=== PATIENT | female | born 1955 | race Caucasian/White ===

== ENCOUNTER 2024-01-05 09:33 | Outpatient (REF) | payer MEDICARE, MEDICAID, SELFPAY ==
[2024-01-05 11:34] LABS: Influenza Virus A Antigen Negative; Influenza Virus B Antigen Negative; Internal Control Within Normal Limits; Respiratory Syncytial Virus Not Detected (NOT DETECTE); SARS-CoV-2 Ag NEGATIVE (NEGATIVE)
== END 2024-01-05 09:34 | disposition home or self-care (01) ==
LOC: LAB 09:33
DX: J06.9 Acute upper respiratory infection, unspecified (principal); R05.3 Chronic cough; R06.02 Shortness of breath
CPT/HCPCS: 87420; 87804; 87811

== ENCOUNTER 2024-04-21 12:54 | Outpatient (REF) | payer MEDICARE, MEDICAID, SELFPAY ==
[2024-04-21 13:46] LABS: Basophils Percent Auto 0.4 % (0.2-2.0); Eosinophils Absolute Auto 0.1 10^3/uL (0.0-0.7); Eosinophils Percent Auto 2.2 % (0.9-7.0); Hematocrit 26.8 % (36.0-48.0); Hemoglobin 8.1 g/dL (12.0-16.0); Immature Granulocytes Abs Auto 0.07 10^3/uL (0.00-0.03); Immature Granulocytes Pct Auto 1.3 % (0.0-0.5); Lymphocytes Percent Auto 18.7 % (20.5-60.0); Mean Corpuscular HGB Conc 30.2 g/dL (29.9-35.2); Mean Corpuscular Hemoglobin 25.8 pg (26.7-34.0); Mean Corpuscular Volume 85.4 fL (81.0-99.0); Monocytes Percent Auto 18.7 % (1.7-12.0); Neutrophils Absolute Auto 3.2 10^3/uL (1.4-6.5); Neutrophils Percent Auto 58.7 % (43.0-75.0); Platelet Count 56 10^3/uL (150-450); Red Blood Count 3.14 10^6/uL (4.20-5.40); White Blood Count 5.4 10^3/uL (4.0-11.0)
[2024-04-21 14:08] LABS: Anion Gap 11.8; BUN Creatinine Ratio 27.8; Calcium 8.4 mg/dL (8.5-10.1); Carbon Dioxide 28.4 mmol/L (21.0-32.0); Chloride 103 mmol/L (98-107); Estimated GFR (African America >60 (>=60); Estimated GFR (Non-African Ame >60 (>=60); Glucose 94 mg/dL (74-106); Potassium 4.2 mmol/L (3.5-5.1); Sodium 139 mmol/L (136-145)
[2024-04-21 14:20] LABS: Red Cell Distribution Width 22.5 % (11.0-15.0)
== END 2024-04-21 12:55 | disposition home or self-care (01) ==
LOC: LAB 12:54
PROVIDERS: Visit Provider Family Medicine
DX: K65.2 Spontaneous bacterial peritonitis (principal)
CPT/HCPCS: 36415; 80048; 85025

== ENCOUNTER 2024-04-25 13:09 | Outpatient (REF) | payer MEDICARE, MEDICAID, SELFPAY ==
[2024-04-25 13:57] LABS: Basophils Percent Auto 0.7 % (0.2-2.0); Eosinophils Absolute Auto 0.2 10^3/uL (0.0-0.7); Eosinophils Percent Auto 3.6 % (0.9-7.0); Immature Granulocytes Abs Auto 0.03 10^3/uL (0.00-0.03); Immature Granulocytes Pct Auto 0.7 % (0.0-0.5); Lymphocytes Absolute Auto 1.2 10^3/uL (1.2-3.8); Lymphocytes Percent Auto 28.1 % (20.5-60.0); Mean Corpuscular HGB Conc 30.8 g/dL (29.9-35.2); Mean Corpuscular Hemoglobin 26.4 pg (26.7-34.0); Mean Corpuscular Volume 85.8 fL (81.0-99.0); Monocytes Percent Auto 22.8 % (1.7-12.0); Neutrophils Absolute Auto 1.8 10^3/uL (1.4-6.5); Neutrophils Percent Auto 44.1 % (43.0-75.0); Platelet Count 60 10^3/uL (150-450); Red Blood Count 3.03 10^6/uL (4.20-5.40); Red Cell Distribution Width 23.5 % (11.0-15.0); White Blood Count 4.2 10^3/uL (4.0-11.0)
[2024-04-25 14:44] LABS: Anion Gap 12.5; BUN Creatinine Ratio 27.9; Calcium 8.9 mg/dL (8.5-10.1); Carbon Dioxide 26.5 mmol/L (21.0-32.0); Chloride 102 mmol/L (98-107); Estimated GFR (African America >60 (>=60); Estimated GFR (Non-African Ame >60 (>=60); Glucose 87 mg/dL (74-106); Sodium 137 mmol/L (136-145)
== END 2024-04-25 13:10 | disposition home or self-care (01) ==
LOC: LAB 13:09
PROVIDERS: Visit Provider Family Medicine
DX: K65.2 Spontaneous bacterial peritonitis (principal)
CPT/HCPCS: 36415; 80048; 85025

== ENCOUNTER 2024-04-29 10:39 | Outpatient (REF) | payer MEDICARE, MEDICAID, SELFPAY ==
[2024-04-29 11:05] LABS: Hematocrit 24.4 % (36.0-48.0); Hemoglobin 7.6 g/dL (12.0-16.0); Mean Corpuscular HGB Conc 31.1 g/dL (29.9-35.2); Mean Corpuscular Hemoglobin 27.1 pg (26.7-34.0); Mean Corpuscular Volume 87.1 fL (81.0-99.0); Mean Platelet Volume 10.7 fL (9.5-13.5); Platelet Count 47 10^3/uL (150-450); Red Cell Distribution Width 24.5 % (11.0-15.0); White Blood Count 1.9 10^3/uL (4.0-11.0)
[2024-04-29 11:51] LABS: Anisocytosis 2+; Basophils Abs Manual 0.01 10^3/uL (0.00-0.10); Eosinophils Absolute Manual 0.13 10^3/uL (0.00-0.70); Lymphocytes Absolute Manual 0.57 10^3/uL (1.20-3.80); Monocytes Absolute Manual 0.28 10^3/uL (0.30-0.80); Segmented Neut Absolute Manual 0.87 10^3/uL (1.4-6.5)
[2024-04-29 12:08] LABS: Anion Gap 12.6; BUN Creatinine Ratio 26.2; Calcium 8.7 mg/dL (8.5-10.1); Carbon Dioxide 24.5 mmol/L (21.0-32.0); Chloride 107 mmol/L (98-107); Estimated GFR (African America >60 (>=60); Estimated GFR (Non-African Ame >60 (>=60); Glucose 185 mg/dL (74-106); Potassium 4.1 mmol/L (3.5-5.1); Sodium 140 mmol/L (136-145)
== END 2024-04-29 10:40 | disposition home or self-care (01) ==
LOC: LAB 10:39
PROVIDERS: Visit Provider Family Medicine
DX: K65.9 Peritonitis, unspecified (principal)
CPT/HCPCS: 36415; 80048; 85007; 85027

== ENCOUNTER 2024-05-02 12:13 | Outpatient (OUT) | payer MEDICARE, MEDICAID, SELFPAY ==
[2024-05-02 13:44] LABS: Basophils Percent Auto 0.4 % (0.2-2.0); Eosinophils Absolute Auto 0.1 10^3/uL (0.0-0.7); Eosinophils Percent Auto 4.4 % (0.9-7.0); Hematocrit 26.6 % (36.0-48.0); Hemoglobin 8.1 g/dL (12.0-16.0); Immature Granulocytes Abs Auto 0.02 10^3/uL (0.00-0.03); Immature Granulocytes Pct Auto 0.9 % (0.0-0.5); Lymphocytes Absolute Auto 0.7 10^3/uL (1.2-3.8); Lymphocytes Percent Auto 32.6 % (20.5-60.0); Mean Corpuscular HGB Conc 30.5 g/dL (29.9-35.2); Mean Corpuscular Hemoglobin 26.8 pg (26.7-34.0); Mean Corpuscular Volume 88.1 fL (81.0-99.0); Mean Platelet Volume 11.9 fL (9.5-13.5); Monocytes Absolute Auto 0.6 10^3/uL (0.3-0.8); Monocytes Percent Auto 24.7 % (1.7-12.0); Neutrophils Absolute Auto 0.8 10^3/uL (1.4-6.5); Platelet Count 56 10^3/uL (150-450); Red Blood Count 3.02 10^6/uL (4.20-5.40); Red Cell Distribution Width 24.3 % (11.0-15.0); White Blood Count 2.3 10^3/uL (4.0-11.0)
[2024-05-02 14:05] LABS: Anion Gap 12.8; BUN Creatinine Ratio 26.8; Calcium 8.8 mg/dL (8.5-10.1); Carbon Dioxide 26.5 mmol/L (21.0-32.0); Chloride 103 mmol/L (98-107); Estimated GFR (African America >60 (>=60); Estimated GFR (Non-African Ame >60 (>=60); Glucose 92 mg/dL (74-106); Potassium 4.3 mmol/L (3.5-5.1); Sodium 138 mmol/L (136-145)
== END 2024-05-02 12:14 | disposition home or self-care (01) ==
LOC: LAB 12:15
PROVIDERS: Visit Provider Family Medicine
DX: K65.9 Peritonitis, unspecified (principal)
CPT/HCPCS: 36415; 80048; 85025

== ENCOUNTER 2024-08-18 13:33 | Outpatient (OUT) | payer MEDICARE, MEDICAID, SELFPAY ==
--- NOTE | 2024-08-18 14:05 | MM_ITS ---
Patient Name: NANNETTE PÉREZ MR#: [id number] : 1955 Exam Date: 08/18/2024 Ordering Doctor: DR YINKA LOPEZ M.D. RADIOLOGY REPORT PROCEDURE: MM TOMOSYNTHESIS SCREENING BI COMPARISON: MG MAMM SCREEN BRENDA W CAD, 03/23/2019. MG MAMM SCREEN 3D BRENDA CAD, 10/16/2022. INDICATIONS: Screening Calculator Name NCI Breast Cancer Risk Assessment Tool 5 Year Breast Cancer Risk 5.10% Lifetime Breast Cancer Risk 17.40% Personal Breast Cancer No Personal Ovarian Cancer No Treatments None Family Cancers Sister with breast cancer at age 52; Mother with colon cancer at age 78; Father with prostate cancer at age 76; Brother with lung cancer at age 64. LOCATION: [facility] BREAST COMPOSITION: There are scattered areas of fibroglandular density. FINDINGS: DIAGNOSTIC CATEGORY 2--BENIGN FINDING. NO CHANGE FROM COMPARISON. Scattered benign-appearing calcifications are present. RIGHT BREAST: No significant suspicious finding. LEFT BREAST: No significant suspicious finding. RECOMMENDATIONS: ROUTINE MAMMOGRAM AND CLINICAL EVALUATION IN 12 MONTHS. PLEASE NOTE: A NORMAL MAMMOGRAM DOES NOT EXCLUDE THE POSSIBILITY OF BREAST CANCER. A CLINICALLY SUSPICIOUS PALPABLE LUMP SHOULD BE BIOPSIED. Dictated by: Douglas Lozano MD on 08/18/2024 at 15:11 Approved by: Douglas Lozano MD on 08/18/2024 at 15:19
== END 2024-08-18 13:34 | disposition home or self-care (01) ==
LOC: MAMMO 13:35
PROVIDERS: PCP Family Medicine; Visit Provider Family Medicine
DX: Z12.31 Encounter for screening mammogram for malignant neoplasm of breast (principal); Z80.3 Family history of malignant neoplasm of breast; Z80.0 Family history of malignant neoplasm of digestive organs; Z80.42 Family history of malignant neoplasm of prostate; Z80.1 Family history of malignant neoplasm of trachea, bronchus and lung
CPT/HCPCS: 77063; 77067

== ENCOUNTER 2024-08-29 19:40 | Outpatient (OUT) | payer MEDICARE, MEDICAID, SELFPAY | END 2024-08-29 19:41 | disposition home or self-care (01) | LOC: SLEEP 19:40 | PROVIDERS: PCP Family Medicine | DX: J44.9 Chronic obstructive pulmonary disease, unspecified (principal); I10 Essential (primary) hypertension; G47.10 Hypersomnia, unspecified | CPT/HCPCS: 95810 ==

== ENCOUNTER 2025-04-02 13:16 | Emergency (ER) | payer MEDICARE, MEDICAID, SELFPAY ==
--- OUTSIDE RECORDS SUMMARY | 2025-03-29 15:20 | XMS_ITS | Encounter Summary ---
Author Organization [facility] Address [address] [facility] [place] [address] Care Team Providers Care Forging Press Setter Up Name Role Phone Vitaliy Thomson MD Unavailable [phone] Vitaliy Thomson MD Primary Care Provider [phone] Letty Newsome EXECUTIVE SECRETARY [employer] Unavailable [phone] Sima Paul RN Unavailable [phone] Reason for Visit * Reason Comments UTI Encounter Details Date Type Department Care Team (Late st Contact Info) Description 03/29/2025 3:20 PM EDT Office Visit [facility] [address] [place] [id number] Power Swain DO [address] [place] [address] Acute cystitis without hematuria (Primary Dx); Gastroesophageal reflux disease without esophagitis; Recurrent candidiasis of vagina Social History Tobacco Use Types Packs/Day Years Used Date Smoking Tobacco: Former Cigarettes Smokeless Tobacco: Former Alcohol Use Standard Drinks/Week Comments Never 0 (1 standard drink = 0.6 oz pure alcohol) cafffeine intake: 1-2 cups per day AUDIT-C Answer Date Recorded Q1: How often do you have a drink containing alcohol? Never 03/01/2025 Q2: How many drinks containi ng alcohol do you have on a typical day when you are drinking? Patient does not drink Q3: How often do you have si x or more drinks on one occasion? Never 03/01/2025 PHQ-2 Answer Date Recorded Patient Health Questionnaire-2 Score 0 03/01/2025 Comments No Sex and Gender Information Value Date Recorded Sex Assigned at Not on file Legal Sex Female 6:38 PM EDT Gender Identity Not on file Sexual Orientation Not on file Occupation Industry Job Start Date Job End Date Retired Not on file Not on file Not on file documented as of this encounter Last Filed Vital Signs Vital Sign Reading Time Taken Comments Blood Pressure 128/72 03/29/2025 3:40 PM EDT Pulse 89 03/29/2025 3:40 PM EDT Temperature 36.7 C (98.1 F) 03/29/2025 3:40 PM EDT Respiratory Rate 20 03/29/2025 3:40 PM EDT Oxygen Saturation 94% 03/29/2025 3:40 PM EDT Inhaled Oxygen Concentration - - Weight 85.3 kg (188 lb) 03/29/2025 3:40 PM EDT Height 160 cm (5' 3 ) 03/29/2025 3:40 PM EDT Body Mass Index 33.3 03/29/2025 3:40 PM EDT documented in this encounter Progress Notes * Power Swain DO - 03/29/2025 3:20 PM EDTAssociated Problem(s): GERD (gastroesophageal reflux disease) - Heartburn not well controlled with current medication (Protonix). - Prescribe lansoprazole 30 mg once daily since it worked better for her in the past, starting the day after the last dose of pantoprazole. Orders: lansoprazole (Prevacid) [address] capsule; Take 1 capsule (30 mg) by mouth Daily Do not crush or chew. * Power Swain DO - 03/29/2025 3:20 PM EDT Images from the original note were not included. FAMILY MEDICINE NOTE Chief Complaint: UTI HPI: UTI: Patient with the following complaints and denials which have been present for unsure the amount of time. Would like to discuss protonix as well, it is not helping her GERD. C/O Denies Symptom Comments [x] [] Dysuria [] [x] hematuria [x] [] Urinary frequency [x] [] Urinary incontinence [x] [] Urinary urgency [x] [] Genital itching [] [x] Genital discharge [] [x] Back pain [] [x] Abd pain Additional Comments: pt has not taken any OTC medications Hemorrhoids Has multiple hemorrhoids reportedly and uses hydrocortisone and anusol rectal cream with 5% lidocaine for relief. Wears pads to prevent medication from staining clothes and furniture. Low platelet count and white blood cell count due to cancer, which has limited treatment options for hemorrhoids inregards to surgery per pt report. Heartburn Experiences significant heartburn and has been taking Protonix since last April. Previously on Prevacid, which was effective, but was switched to Protonix during a hospital stay. Uses chewables and Tums for additional relief. SUBJECTIVE: PROBLEM LIST SURGICAL/SOCIAL ALLERGIES: Patient Active Problem List Diagnosis Chronic obstructive pulmonary disease (CMS/HCC) Depression (CMS/HCC) DM2 (diabetes mellitus, type 2) (CMS/HCC) Essential hypertension (CMS/HCC) Fibromyalgia Hyperlipidemia, group D (CMS/HCC) Hypogammaglobulinemia (CMS/HCC) Vitamin D deficiency Thoracic aortic aneurysm without rupture (CMS/HCC) Primary localized osteoarthrosis of ankle and foot Multiple myeloma not having achieved remission (CMS/HCC) Morbid obesity (CMS/HCC) Hemorrhoids, complicated Familial hyperchylomicronemia (CMS/HCC) GERD (gastroesophageal reflux disease) Immunodeficiency disorder (CMS/HCC) Constipation 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) (CMS/HCC) BMI 30.0-30.9,adult Acute alteration in mental status History of COVID-19 History of tobacco abuse Maxillary sinusitis, chronic Acute metabolic encephalopathy Bacteremia Paroxysmal atrial fibrillation (CMS/HCC) Rhinovirus infection Septic shock (CMS/HCC) Abnormal CXR (chest x-ray) Spontaneous bacterial peritonitis (HCC) (CMS/HCC) Bleeding hemorrhoids Lymphopenia Thrombocytopenia (CMS/HCC) Abnormal liver ultrasound Claustrophobia (CMS/HCC) Hepatocellular carcinoma (CMS/HCC) Liver lesion Past Surgical History: Procedure Laterality Date APPENDECTOMY BONE MARROW BIOPSY several CARPAL TUNNEL RELEASE CHOLECYSTECTOMY COLONOSCOPY 05/01/2015, completed by Dr. Cody 09/15/2018 CT GUIDED RF ABLATION LIVER 01/05/2025 CT GUIDED RF ABLATION LIVER 01/05/2025 ELBOW SURGERY HERNIA REPAIR HYSTERECTOMY KNEE SURGERY Bilateral knee arthroscopy TENDON REPAIR US GUIDED RF ABLATION LIVER 01/05/2025 US GUIDED RF ABLATION LIVER 01/05/2025 WRIST SURGERY Social History Tobacco Use Smoking status: Former Types: Cigarettes Smokeless tobacco: Former Substance Use Topics Alcohol use: Never Comment: cafffeine intake: 1-2 cups per day Drug use: Never Allergies Allergen Reactions Latex Unknown, Hives and Rash Tetracycline Unknown, Hives and Rash Antazoline Itching Other Reaction(s): Unknown Diclofenac Unknown and Hives Diclofenac Sodium Hives Doxycycline Unknown and Swelling Erythromycin Hives Erythromycin Base Hives Other Dizziness Other Reaction(s): dizziness Quinolones Hives Other Reaction(s): Hives, Unknown Reaction Other Reaction(s): Unknown Reaction Wound Dressing Adhesive Unknown Amoxicillin Swelling and Rash Moxifloxacin Hives, Rash and Unknown OBJECTIVE: 03/29/2025 3:40 PM 03/13/2025 11:57 AM 03/01/2025 1:51 PM Vitals BMI 33.3 kg/m2 32.56 kg/m2 31.89 kg/m2 BSA (m2) 1.95 m2 1.93 m2 1.9 m2 Systolic 128 122 102 Diastolic 72 78 70 Heart Rate 89 83 87 SpO2 94 % 95 % 97 % Temp 98.1 ??F 97.8 ??F 97.7 ??F Resp 20 20 Height (in) 5' 3 5' 3 Weight (lb) 188 183.8 180 Visit Report Report Report Report Physical Exam Constitutional: Appearance: Normal appearance. Cardiovascular: Rate and Rhythm: Normal rate and regular rhythm. Heart sounds: No murmur heard. No friction rub. No gallop. Pulmonary: Breath sounds: Normal breath sounds. No wheezing, rhonchi or rales. Abdominal: General: Abdomen is flat. Bowel sounds are normal. There is no distension. Palpations: Abdomen is soft. There is no mass. Tenderness: There is no abdominal tenderness. There is no right CVA tenderness, left CVA tendernessor guarding. Comments: Negative deirdre's punch bilaterally Musculoskeletal: General: Normal range of motion. Skin: General: Skin is warm. Neurological: General: No focal deficit present. Mental Status: She is alert. Mental status is at baseline. Psychiatric: Mood and Affect: Mood normal. Behavior: Behavior normal. ASSESSMENT AND PLAN: Assessment & Plan Acute cystitis without hematuria - UA showed signs of a potential UTI in office today with trace LE. Possible irritation or allergicreaction from pad material contributing to UTI. - Remove the pad to see if it is causing irritation. Start antibiotics as soon as possible. Send urine for culture to determine the appropriate antibiotic. Call patient with results. Prescribe Diflucan for potential yeast infection. - Risks and side effects: Monitor for red flags such as urinary retention, flank pain, fevers, chills, nausea, or vomiting, and go to the ER if these occur. Orders: POCT urinalysis dipstick manually resulted URINARY TRACT INFECTION (HTRX); Future nitrofurantoin, macrocrystal-monohydrate, (Macrobid) 100 MG capsule; Take 1 capsule (100 mg) by mouth in the morning and 1 capsule (100 mg) before bedtime. Do all this for 5 days. Gastroesophageal reflux disease without esophagitis - Heartburn not well controlled with current medication (Protonix). - Prescribe lansoprazole 30 mg once daily since it worked better for her in the past, starting the day after the last dose of pantoprazole. Orders: lansoprazole (Prevacid) [address] capsule; Take 1 capsule (30 mg) by mouth Daily Do not crush or chew. Recurrent candidiasis of vagina See above Orders: fluconazole (Diflucan) 150 MG tablet; Take 1 tablet (150 mg) by mouth Daily for 3 days Take one tablet then another tablet 72 hours later if symptoms do not resolve Patient's Medications New Prescriptions FLUCONAZOLE (DIFLUCAN) 150 MG TABLET Take 1 tablet (150 mg) by mouth Daily for 3 days Take one tablet then another tablet 72 hours later if symptoms do not resolve LANSOPRAZOLE (PREVACID) [address] CAPSULE Take 1 capsule (30 mg) by mouth Daily Do not crush or chew. NITROFURANTOIN, MACROCRYSTAL-MONOHYDRATE, (MACROBID) 100 MG CAPSULE Take 1 capsule (100 mg) by mouth in the morning and 1 capsule (100 mg) before bedtime. Do all this for 5 days. Previous Medications ACYCLOVIR (ZOVIRAX) 400 MG TABLET Take 400 mg by mouth in the morning and 400 mg before bedtime. ALBUTEROL (2.5 MG/3ML) 0.083% NEBULIZER SOLUTION Take 3 mL (2.5 mg) by nebulization every 6 (six) hours if needed for wheezing ATORVASTATIN (LIPITOR) 40 MG TABLET Take 1 tablet (40 mg) by mouth Daily TAKE 1 TABLET BY MOUTH EVERY DAY FOR 90 DAYS [id number] (BREZTRI AEROSPHERE) 160-9-4.8 MCG/ACT AEROSOL Inhale 2 puffs in themorning and 2 puffs before bedtime. CARVEDILOL (COREG) 12.5 MG TABLET Take 1 tablet (12.5 mg) by mouth in the morning and 1 tablet (12.5 mg) in the evening. Take with meals. CETIRIZINE (ZYRTEC) 10 MG TABLET Take 1 tablet (10 mg) by mouth at bedtime CHOLECALCIFEROL (VITAMIN D-3) 125 MCG (5000 UT) CAPSULE TAKE 1 CAPSULE BY MOUTH EVERY DAY FOR 90 DAYS CYANOCOBALAMIN (VITAMIN B-12) 1000 MCG SUBLINGUAL TABLET DISSOLVE 1 TABLET UNDER THE TONGUE ONCE A DAY DULOXETINE (CYMBALTA) [address] CAPSULE Take 1 capsule (60 mg) by mouth Daily Do not crush or chew. EPINEPHRINE (EPIPEN) 0.3 MG/0.3ML INJECTION SYRINGE Inject 0.3 mL (0.3 mg) as directed 1 (one) timefor 1 dose use as directed for allergic reaction and then call 911 FLUTICASONE (FLONASE) 50 MCG/ACT NASAL SPRAY Administer 2 sprays into each nostril in the morning and 2 sprays before bedtime. FREESTYLE LANCETS USE 1 LANCET EVERY DAY *E11.9* FUROSEMIDE (LASIX) 20 MG TABLET Take 1 tablet (20 mg) by mouth Daily GABAPENTIN (NEURONTIN) 400 MG CAPSULE 2 (two) times a day GLUCOSE BLOOD (FREESTYLE LITE) TEST STRIP Use as instructed HYDROCORTISONE (ANUSOL-HC) 2.5 % RECTAL CREAM APPLY RECTALLY 2 TO 4 TIMES PER DAY NEEDED FOR HEMORRHOIDS MAGNESIUM OXIDE (MAG-OX) 400 (240 MG) MG TABLET Take 400 mg by mouth Daily MAGNESIUM OXIDE (MAG-OX) 400 MG TABLET Take 1 tablet by mouth Daily MELATONIN TABLET Take 2 mg by mouth at bedtime METFORMIN XR (GLUCOPHAGE-XR) 500 MG 24 HR TABLET Take 1 tablet (500 mg) by mouth Daily NALOXONE (NARCAN) 4 MG/0.1 ML NASAL SPRAY Administer 4 mg into affected nostril(s) ONDANSETRON ODT (ZOFRAN-ODT) 8 MG DISINTEGRATING TABLET Take 8 mg by mouth every 8 (eight) hours ifneeded for nausea or vomiting. OXYCODONE (ROXICODONE) 10 MG IMMEDIATE RELEASE TABLET TAKE 1 TABLET BY MOUTH FOUR TIMES A DAY NEEDED POTASSIUM CHLORIDE ER (MICRO-K) 10 MEQ ER CAPSULE Take 10 mEq by mouth in the morning. RESPIRATORY THERAPY SUPPLIES (NEBULIZER MASK ADULT/TUBING) MISC 1 Application every 6 (six) hours if needed (shortness of breath, wheezing) SEMAGLUTIDE,0.25 OR 0.5MG/DOS, (OZEMPIC, 0.25 OR 0.5 MG/DOSE,) 2 MG/3ML SOLUTION PEN-INJECTOR Inject 0.5 mg under the skin 1 (one) time per week SPIRONOLACTONE (ALDACTONE) 50 MG TABLET Take 1 tablet (50 mg) by mouth Daily SULFAMETHOXAZOLE-TRIMETHOPRIM (BACTRIM DS) 800-160 MG PER TABLET TAKE 1 TABLET BY MOUTH EVERY THURSDAY, THURSDAY AND THURSDAY TECLISTAMAB-CQYV 30 MG/3ML SOLUTION Modified Medications No medications on file Discontinued Medications PANTOPRAZOLE (PROTONIX) 20 MG EC TABLET Take 1 tablet (20 mg) by mouth in the morning and 1 tablet (20 mg) before bedtime. Do not crush, chew, or split.. Follow up if symptoms worsen or fail to improve. Power Swain DO documented in this encounter Plan of Treatment Upcoming Encounters Date Type Department Care Team (Late st Contact Info) Description 05/26/2025 10:20 AM EDT Office Visit [facility] [address] [place] [address] Power Swain DO [address] [place] [address] documented as of this encounter Procedures Procedure Name Priority Date/Time Associated Diagnosis Comments POCT URINALYSIS DIPSTICK Routine 03/29/2025 3:48 PM EDT Acute cystitis without hematuria URINARY TRACT INFECTION (HTRX) Routine 03/29/2025 3:40 PM EDT Acute cystitis without hematuria documented in this encounter Results * (ABNORMAL) POCT urinalysis dipstick manually resulted (03/29/2025 3:48 PM EDT) Pathologist [facility] Color, UA Yellow Clarity, UA Clear Glucose, UA Negative Negative - 2000(110) ++++ mg/dL Bilirubin, UA Negative Negative - 4(70) +++ mg/dL Ketones, UA Negative Negative - 160(16) ++++ mg/dL Spec Grav, UA 1.005 1 - 1.03 Blood, UA Negative Negative - 50 Michael/mcL pH, UA 7.0 5 - 9 Protein, UA Negative Negative - 2000(20) ++++ mg/dL Urobilinogen, UA 0.2 0.2 - 12 mg/dL Leukocytes, UA Trace Negative - 500+++ Mahamed/mcL Nitrite, UA Negative Negative - Positive Urine 03/29/2025 3:48 PM EDT Power Swain DO POINT OF CARE TEST ENTER/EDIT O RDERABLES Final Result * (ABNORMAL) URINARY TRACT INFECTION (HTRX) (03/29/2025 3:40 PM EDT) Pathologist [facility] CTX-M1 (15), M2 (2), M9 (9), M8-25 GROUPS 20.740(A) 23.000 - 32.546 ppm 03/30/2025 7:25 AM EDT [facility] (15), M2 (2), M9 (9), M8-25 GROUPS Detected(A) 23.000 - 32.546 ppm 03/30/2025 7:25 AM EDT [facility] QNR A1, A2, B2 21.828(A) 23.000 - 30.726 ppm 03/30/2025 7:25 AM EDT [facility] A1, A2, B2 Detected(A) 23.000 - 30.726 ppm 03/30/2025 7:25 AM EDT [facility], [facility] GROUPS 22.819(A) 23.000 - 31.647 ppm 03/30/2025 7:25 AM EDT [facility] SH[facility], [facility] GROUPS Detected(A) 23.000 - 31.647 ppm 03/30/2025 7:25 AM EDT [facility] ACINETOBACTER BAUMANII 0.000 19.961 - 24.689 ppm 03/30/2025 7:25 AM EDT [facility] ACINETOBACTER BAUMANII Not Detected 19.961 - 24.689 ppm 03/30/2025 7:25 AM EDT [facility] CITROBACTER FREUNDII 0.000 23.000 - 31.881 ppm 03/30/2025 7:25 AM EDT [facility] CITROBACTER FREUNDII Not Detected 23.000 - 31.881 ppm 03/30/2025 7:25 AM EDT [facility] ENTEROBACTER AEROGENES, CLOACAE 0.000 23.000 - 31.535 ppm 03/30/2025 7:25 AM EDT [facility] ENTEROBACTER AEROGENES, CLOACAE Not Detected 23.000 - 31.535 ppm 03/30/2025 7:25 AM EDT [facility] ENTEROCOCCUS FAECALIS, FAECIUM 0.000 26.000 - 31.575 ppm 03/30/2025 7:25 AM EDT [facility] ENTEROCOCCUS FAECALIS, FAECIUM Not Detected 26.000 - 31.575 ppm 03/30/2025 7:25 AM EDT [facility] ESCHERICHIA COLI 0.000 23.000 - 28.500 ppm 03/30/2025 7:25 AM EDT [facility] ESCHERICHIA COLI Not Detected 23.000 - 28.500 ppm 03/30/2025 7:25 AM EDT [facility] KLEBSIELLA PNEUMONIAE, OXYTOCA 23.351(A) 23.000 - 30.500 ppm 03/30/2025 7:25 AM EDT [facility] KLEBSIELLA PNEUMONIAE, OXYTOCA Detected(A) 23.000 - 30.500 ppm 03/30/2025 7:25 AM EDT [facility] MORGANELLA MORGANII 0.000 19.961 - 24.689 ppm 03/30/2025 7:25 AM EDT [facility] MORGANELLA MORGANII Not Detected 19.961 - 24.689 ppm 03/30/2025 7:25 AM EDT [facility] PROTEUS MIRABILIS, VULGARIS 0.000 23.000 - 28.500 ppm 03/30/2025 7:25 AM EDT [facility] PROTEUS MIRABILIS, VULGARIS Not Detected 23.000 - 28.500 ppm 03/30/2025 7:25 AM EDT [facility] PSEUDOMONAS AERUGINOSA 0.000 23.000 - 28.500 ppm 03/30/2025 7:25 AM EDT [facility] PSEUDOMONAS AERUGINOSA Not Detected 23.000 - 28.500 ppm 03/30/2025 7:25 AM EDT [facility] STAPHYLOCOCCUS AUREUS 0.000 26.000 - 30.902 ppm 03/30/2025 7:25 AM EDT [facility] STAPHYLOCOCCUS AUREUS Not Detected 26.000 - 30.902 ppm 03/30/2025 7:25 AM EDT [facility] STREPTOCOCCUS AGALACTIAE (GROUP B STREP) 0.000 26.000 - 32.222 ppm 03/30/2025 7:25 AM EDT [facility] STREPTOCOCCUS AGALACTIAE (GROUP B STREP) Not Detected 26.000 - 32.222 ppm 03/30/2025 7:25 AM EDT [facility] CRIS ALBICANS, PARAPSILOSIS, TROPICALIS 0.000 19.961 - 30.770 ppm 03/30/2025 7:25 AM EDT [facility] CRIS ALBICANS, PARAPSILOSIS, TROPICALIS Not Detected 19.961 - 30.770 ppm 03/30/2025 7:25 AM EDT [facility] CRIS GLABRATA 0.000 23.000 - 32.138 ppm 03/30/2025 7:25 AM EDT [facility] CRIS GLABRATA Not Detected 23.000 - 32.138 ppm 03/30/2025 7:25 AM EDT [facility] CRIS KRUSEI 0.000 23.000 - 32.271 ppm 03/30/2025 7:25 AM EDT [facility] CRIS KRUSEI Not Detected 23.000 - 32.271 ppm 03/30/2025 7:25 AM EDT [facility] SERRATIA MARCESCENS 0.000 23.000 - 31.204 ppm 03/30/2025 7:25 AM EDT [facility] SERRATIA MARCESCENS Not Detected 23.000 - 31.204 ppm 03/30/2025 7:25 AM EDT [facility] STREPTOCOCCUS PYOGENES (GROUP A STREP) 0.000 19.961 - 24.689 ppm 03/30/2025 7:25 AM EDT [facility] STREPTOCOCCUS PYOGENES (GROUP A STREP) Not Detected 19.961 - 24.689 ppm 03/30/2025 7:25 AM EDT [facility] STAPHYLOCOCCUS EPIDERMIDIS, HAEMOLYTICUS, LUGDUNENSIS, SAPROPHYTICUS (URINA 0.000 19.961 - 24.689 ppm 03/30/2025 7:25 AM EDT [facility] STAPHYLOCOCCUS EPIDERMIDIS, HAEMOLYTICUS, LUGDUNENSIS, SAPROPHYTICUS (URINA Not Detected 19.961 - 24.689 ppm 03/30/2025 7:25 AM EDT [facility] STAPHYLOCOCCUS EPIDERMIDIS, HAEMOLYTICUS, LUGDUNENSIS, SAPROPHYTICUS (URINA 0.000 19.961 - 24.689 ppm 03/30/2025 7:25 AM EDT [facility] STAPHYLOCOCCUS EPIDERMIDIS, HAEMOLYTICUS, LUGDUNENSIS, SAPROPHYTICUS (URINA Not Detected 19.961 - 24.689 ppm 03/30/2025 7:25 AM EDT [facility] Urine 03/29/2025 3:40 PM EDT 03/30/2025 1:47 AM EDT Power Swain DO LAB BLOOD ORDERABLES Final Resu lt [facility] [address] [place] [address] documented in this encounter Visit Diagnoses Diagnosis Acute cystitis without hematuria- Primary Gastroesophageal reflux disease without esophagitis Esophageal reflux Recurrent candidiasis of vagina documented in this encounter Additional Health Concerns Assessment Noted Time PHQ-9 Depression Total Score: 0 11/30/19 24 9:00 AM EST documented as of this encounter Care Teams Forging Press Setter Up Relationship Specialty Start Date End Date Vitaliy Thomson MD [address] [place] [address] PCP - ACO Reach 03/26/23 Vitaliy Thomson MD [address] [place] [address] PCP - General Family Medicine 05/19/23 Letty Newsome NP [address] [place] [id number] Nurse Practitioner Pulmonary Disease 05/19/23 Sima Paul, RN Registered Nurse Family Medicine 08/24/23 documented as of this encounter
[2025-04-02 13:24] VITALS: BP 106/66; PULSE 80; TEMP 37; O2SAT 96; BMI 32.9
--- OUTSIDE RECORDS SUMMARY | 2025-04-02 13:24 | XMS_ITS | Encounter Summary ---
Author Organization [facility] Address [address] [place] [address] Care Team Providers Care Intravenous Therapy Nurse Name Role Phone Vitaliy Thomson MD Unavailable [phone] Vitaliy Thomson MD Primary Care Provider [phone] Letty Newsome TELEMARKETING REPRESENTATIVE Unavailable [phone] Sima Paul RN Unavailable [phone] Encounter Details Date Type Department Care Team (Late st Contact Info) Description 03/28/2025 External Result Encounter [facility] External Department Unsolicited Fabiola Marinelli MD [address] [place] [address] Social History Tobacco Use Types Packs/Day Years [...] on file documented as of this encounter Plan of Treatment Upcoming Encounters Date Type Department Care Team (Late st Contact Info) Description 05/26/2025 10:20 AM EDT Office Visit [facility] [address] [place] [address] Power Swain, DO [address] [place] [address] documented as of this encounter Procedures Procedure Name Priority Date/Time Associated Diagnosis Comments COMPREHENSIVE METABOLIC PANEL STAT 03/28/2025 8:53 AM EDT documented in this encounter Results * (ABNORMAL) Comprehensive metabolic panel (03/28/2025 8:53 AM EDT) Glucose 116(H) 70 - 100 mg/dL 03/28/2025 9:23 AM EDT [facility] Comment: Random Glucose Reference Range is dependent on time and content of last meal. Glucose of more than 200 mg/dL in a nonstressed, ambulatory subject supports the diagnosis of Diabetes Mellitus. ADA recommended reference range BUN 19 7 - 25 mg/dL 03/28/2025 9:23 AM EDT [facility] CREATININE 1.04 0.60 - 1.20 mg/dL 03/28/2025 9:23 AM EDT [facility] ESTIMATED GFR 58.908 mL/Min 03/28/2025 9:23 AM EDT [facility] Sodium 139 136 - 145 mmol/L 03/28/2025 9:23 AM EDT [facility] Potassium, Bld 4.0 3.5 - 5.1 mmol/L 03/28/2025 9:23 AM EDT [facility] Chloride 104 98 - 107 mmol/L 03/28/2025 9:23 AM EDT [facility] Carbon Dioxide 29.7 21.0 - 31.0 mmol/L 03/28/2025 9:23 AM EDT [facility] Anion Gap 9.3 6.0 - 15.0 meq/L 03/28/2025 9:23 AM EDT [facility] Calcium 8.7 8.6 - 10.3 mg/dL 03/28/2025 9:23 AM EDT [facility] TOTAL PROTEIN 5.8(L) 6.4 - 8.9 g/dL 03/28/2025 9:23 AM EDT [facility] ALBUMIN LEVEL 3.6 3.5 - 5.7 g/dL 03/28/2025 9:23 AM EDT [facility] GLOBULIN 2.2 g/dL 03/28/2025 9:23 AM EDT [facility] ALBUMIN/GLOBULIN RATIO 1.6 03/28/2025 9:23 AM EDT [facility] BILIRUBIN,TOTAL 1.0 0.3 - 1.0 mg/dL 03/28/2025 9:23 AM EDT [facility] ASPARTATE AMINO TRANSFERASE 34 13 - 39 U/L 03/28/2025 9:23 AM EDT [facility] ALANINE AMINOTRANSFERASE 19 7 - 52 U/L 03/28/2025 9:23 AM EDT [facility] ALKALINE PHOSPHATASE 146(H) 34 - 104 U/L 03/28/2025 9:23 AM EDT [facility] CREATININE CLR CALC PHARMACY 52.87 03/28/2025 9:23 AM EDT [facility] Other Topography unknown / Unknown 03/28/2025 8:53 AM EDT 03/28/2025 8:57 AM EDT Fabiola Marinelli MD LAB BLOOD ORDERABLES Final Resul t [facility] [address] [facility] [place] [address], [facility] [address] [place] [address] documented in this encounter Visit Diagnoses Not on filedocumented in this encounter Additional Health Concerns Assessment Noted Time PHQ-9 Depression Total Score: 0 11/30/19 24 9:00 AM EST documented as of this encounter Care Teams Intravenous Therapy Nurse Relationship Specialty Start Date End Date Vitaliy Thomson MD [address] [place] [address] PCP - ACO Reach 03/26/23 Vitaliy Thomson MD [address] [place] [address] PCP - General Family Medicine 05/19/23 Letty Newsome NP [address] [place] [address] Nurse Practitioner Pulmonary Disease 05/19/23 Sima Paul, RN Registered Nurse Family Medicine 08/24/23 documented as of this encounter
--- OUTSIDE RECORDS SUMMARY | 2025-04-02 13:24 | XMS_ITS | Clinical Summary ---
Author Organization [facility] Address [address] [place] [address] Care Team Providers Care Gas Fitter Apprentice Name Role Phone Vitaliy Thomson MD Primary Care Provider [phone] Daniella Lima WOOD STRIP BLOCK FLOOR INSTALLER Unavailable [phone] Allergies Active Allergy Reactions Criticality Noted Date Comments Adhesive Other: See Comments 05/15/2016 Amoxicillin Swelling 03/17/2006 Doxycycline Unknown 05/23/2014 Erythromycin Hives 10/31/2013 Latex Other: See Comments 04/13/2019 Moxifloxacin Hives 05/25/2019 Platelets Other: See Comments 04/21/2019 Throat Swelling; likely angioedema Tetracycline Other: See Comments 04/13/2019 Doxycycline Calcium Swelling 03/17/2006 Diclofenac Sodium Hives 05/25/2019 Medications ADVAIR DISKUS 250-50 mcg/dose DsDv Inhale 1 Puff as instructed as needed. 3 Active OXYCODONE-ACET AMINOPHEN 10-325 mg tablet Take 1 tablet by mouth every 4 hours as needed. 3 Active OMEPRAZOLE 40 mg capsule Take 40 mg by mouth once daily. 3 Active carvedilol (COREG) 12.5 mg tablet Take 1 tablet by mouth twice daily with meals. 9 Active atorvastatin (LIPITOR) 80 mg tablet Take 1 tablet by mouth daily at bedtime. 30 tablet 9 Active lisinopril (ZESTRIL, PRINIVIL) 5 mg tablet Take 1 tablet by mouth once daily. 30 tablet 9 Active ALBUTEROL INHALATION Inhale as instructed. 8 Active metFORMIN (GLUCOPHAGE) 500 mg tablet TAKE 1 TABLET BY MOUTH TWICE A DAY WITH A MEAL 0 Active gabapentin (NEURONTIN) 100 mg capsule TAKE ONE CAPSULE BY MOUTH THREE TIMES A DAY FOR 15 DAYS 1 Active NOVOLOG FLEXPEN U-100 INSULIN 100 unit/mL (3 mL) 2 Active LEVEMIR FLEXTOUCH U-100 INSULIN 100 unit/mL (3 mL) injection pen INJECT 22 UNITS SUBCUTANEOUSLY ONCE DAILY, INCREASE BY 2 UNITS FOR GLUCOSE LEVELS GREATER THAN 140 2 Active semaglutide (OZEMPIC) 0.25 mg or 0.5 mg(2 mg/1.5 mL) pen injector Semaglutide (Ozempic) 0.25 mg or 0.5 mg(2 mg/1.5 mL) Pen Injector Active 0.5 MG SUBCUT every week September 24, 2020 12:34pm 0 Active potassium chloride SR (MICRO-K) 10 mEq CR capsule Take 10 mEq by mouth once daily. 2 Active Cholecalcifero l, Vitamin D3, 125 mcg (5,000 unit) cap TAKE 1 CAPSULE BY MOUTH EVERY DAY FOR 90 DAYS 2 Active cyanocobalamin , vitamin B-12, 1,000 mcg cap 1,000 mcg. 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) 07/11/2019 Obesity, Class III, BMI >= 40 04/20/2019 Atypical chest pain 04/19/2019 Diabetes mellitus type 2, controlled, without co mplications 04/19/2019 Thoracic ascending aortic aneurysm 04/19/2019 COPD (chronic obstructive pulmonary disease) GERD (gastroesophageal reflux disease) 9 Smoldering myeloma 04/19/2019 Thrombocytopenia 05/31/2014 Generalized osteoarthrosis, unspecified site Unspecified vitamin D deficiency 04/15/2006 Sleep apnea 04/15/2006 Monoclonal paraproteinemia 03/26/2006 Myalgia and myositis, unspecified 03/26/2006 Family History Medical History Relation Comments Emphysema Father Heart Father Cancer Mother colon at age 77 Coronary Artery Disease Mother Relation Status Comments Father Mother Social History Tobacco Use Types Packs/Day Years Used Date Smoking Tobacco: Former Cigarettes 2 23 0 07/25/1986 - 07/25/2009 Smokeless Tobacco: Never Alcohol Use Standard Drinks/Week Comments No 0 (1 standard drink = 0.6 oz pur e alcohol) PHQ-2 Answer Date Recorded PHQ2 Score 1 04/19/2019 Area Deprivation Index Answer Date Chet rded National Score (1-100), lower number is lower ri sk 87 04/13/2023 State Score (1-10), lower number is lower risk 8 04/13/2023 Data from: https://www.neighborhoodatlas.medicine.[facility]/. Last address used for calculation [address] 04/13/2023 Comments No Sex and Gender Information Value Date Recorded Sex Assigned at Not on file Legal Sex Female 8:01 AM EST Gender Identity Not on file Sexual Orientation Not on file Last Filed Vital Signs Vital Sign Reading Time Taken Comments Blood Pressure 100/60 07/18/2024 10:00 AM EDT Pulse 76 07/18/2024 10:00 AM EDT Temperature 36.6 C (97.8 F) 07/11/2019 8:08 AM EDT Respiratory Rate 20 11/29/2019 10:44 AM EST Oxygen Saturation 97% 07/11/2019 8:08 AM EDT Inhaled Oxygen Concentration - - Weight 80.3 kg (177 lb 0.5 oz) 07/18/2024 10:00 AM EDT Height 157.5 cm (5' 2 ) 07/18/2024 10:00 AM EDT Body Mass Index 32.38 07/18/2024 10:00 AM EDT Plan of Treatment Upcoming Encounters Date Type Department Care Team (Late st Contact Info) Description 04/24/2025 10:30 AM EDT Office Visit Cardiology [address] [place] [address] Return in about 9 months (around 04/17/2025). 04/24/2025 11:20 AM EDT Office Visit Cardiology [address] [place] [address] [place] [address] [place], [place] [id number] Return in about 9 months (around 04/17/2025). Health Maintenance Due Date Last Done Comments Diabetic Foot Exam 1967 Dilated Retinal Exam 1967 Urine Albumin:Creatinine Ratio 1967 Annual PCP Team Chronic Dise ase Visit 1975 Anxiety Screening 1975 Depression Screening 1975 DTaP,Tdap,Td Vaccine (1 - Tdap) 1976 Hepatitis A Vaccine (1 of 2 - Risk 2-dose series) 1976 Shingrix Vaccine (1 of 2) 1976 CT Colonography 2002 Cologuard (FIT-DNA) 2002 Fecal Occult Blood 2002 Sigmoidoscopy 2002 Hepatitis B Vaccine (1 of 3 - Risk 3-dose series) 2017 RSV Vaccine (1 - Risk 60-74 years 1-dose series) 2017 Colonoscopy 09/15/2019 09/15/2018 Colorectal Cancer Screening 09/15/2019 LDL Cholesterol 11/14/2020 11/14/2019 Pneumococcal Vaccine: 50+ (3 of 3 - PPSV23, PCV20 or PCV21) 10/05/2022 10/05/2017, 07/16/2015 Mammogram Screening 10/16/2023 10/16/2022, 10/16/2022, 04/06/2020, Additional history exists Covid-19 Vaccine (2023-2 5 season) 2024 09/23/2021, 06/19/2021, 05/28/2021 Advance Directive Discussion 11/02/2024 HbA1C 12/21/2024 06/20/2024, 10/0 12/2022, 08/04/2023, Additional history exists Influenza Vaccine (Season Ended) 2025 09/12/2019, 10/14/2018, 10/05/2017, Additional history exists Hepatitis C Screening Completed 05/25/2019 , 04/22/2019, 03/17/2006 Bone Density Screening Completed 12/29/2022 Goals Goal Patient Goal Type Associated Problems Recent Progress Patient-Stated? Author Blood Pressure < 130/80 Blood Pressure 100/60( 024 10:00 AM EDT) Justus Wen MD Procedures Procedure Name Priority Date/Time Associated Diagnosis Comments LIPID PANEL, FASTING Routine 11/14/2019 10:13 AM EST Atypical chest pain Thoracic ascending aortic aneurysm (HCC) Abnormal stress test Coronary artery disease involving ute coronary artery of ute heart without angina pectoris *HEP C AB Routine 05/25/2019 1:12 PM EDT Cirrhosis of liver without ascites, unspecified hepatic cirrhosis type (HCC) from Last 3 Months or Most Recently Relevant to Health Maintenance Results * LIPID PANEL BASIC (11/14/2019 10:13 AM EST) Cholesterol, Total 114 <200 mg/dL 11/14/2019 11:05 AM [facility] Triglyceride 110 <150 mg/dL 11/14/2019 11:05 AM [facility] HDL Cholesterol 50 >39 mg/dL 0 11:05 AM [facility] LDL Cholesterol, Calculated 42 <100 mg/dL 11/14/2019 11:05 AM [facility] Comment: <100 mg/dL, Optimal 100-129 mg/dL, Near optimal/above optimal 130-159 mg/dL, Borderline high 160-189 mg/dL, High >189 mg/dL, Very high Secondary prevention optimal LDL Cholesterol levels are recommended to be < 70 mg/dL Non HDL Cholesterol 64 <130 mg/dL 11/14/2019 11:05 AM [facility] Comment: <130 mg/dL, Optimal 130-159 mg/dL, Near optimal/above optimal 160-189 mg/dL, Borderline high 190-219 mg/dL, High >219 mg/dL, Very high Secondary prevention optimal non HDL Cholesterol levels are recommended to be < 100 mg/dL Fasting Time 12 hrs 11/14/2019 10:15 AM [facility] VLDL Cholesterol 22 <30 mg/dL 11/14/19 20 11:05 AM [facility] TC:HDL Ratio 2.28 <5.10 11/14/2019 11:05 AM [facility] LDL:HDL Ratio 0.84 <2.54 11/14/2019 11:05 AM [facility] Comment: Reference: 1. National Cholesterol Education Program ATP III Guideline At-A-Glance Quick Desk Reference: National Heart, Lung, and Blood [place]. National Institutes of Health. 2001: NIH Publication No. 01-3305. 2. An International Atherosclerosis Society position paper: global recommendations for the management of dyslipidemia: executive summary, Atherosclerosis. 2014: 232(2):410-413. Blood specimen (specimen) BLOOD SPECIMEN / Unknown 11/14/2019 10:13 AM EST 11/14/2019 10:15 AM EST Justus Mendez MD LABORATORY Final Result [facility] [address] [place] [address], [facility] * HEP REMOTE PANEL BL (05/25/2019 1:12 PM EDT) Hep B Core Ab, Total Negative Negative 05/26/2019 1:25 PM EDT [facility] Hep C Antibody IA Negative Negative 05/26/2019 1:27 PM EDT [facility] HBsAg Negative Negative 05/26/2019 1:25 PM EDT [facility] Hep B Surface Ab, Qual Negative Negative 05/26/2019 1:26 PM EDT [facility] Comment:NEGATIVE Blood specimen (specimen) BLOOD SPECIMEN / Unknown 05/25/2019 1:12 PM EDT 05/25/2019 1:14 PM EDT Letty Yanez WOOD STRIP BLOCK FLOOR INSTALLER.[facility] Final Result Performing Organization Address City/[facility]/ZIP Co de Phone Number [facility] [address] [place] [address] [facility] [address] [place] [address] from Last 3 Months or Most Recently Relevant to Health Maintenance Insurance [place] Care Teams Gas Fitter Apprentice Relationship Specialty Start Date End Date Vitaliy Thomson MD [address] [place] [address] PCP - General Family Medicine 01/22/15 Daniella Lima APRN [address] [place] [address] Referring Family Medicine 04/18/19
--- OUTSIDE RECORDS SUMMARY | 2025-04-02 13:24 | XMS_ITS | Encounter Summary ---
Author Organization [facility] Address [address] [address] [place] [address] Care Team Providers Care Appraisal Manager Name Role Phone Vitaliy Thomson MD Unavailable [phone] Vitaliy Thomson MD Primary Care Provider [phone] Fabiola Palumbo NP Unavailable Letty Newsome SEAFOOD PROCESS WORKER Unavailable [phone] Sima Paul RN Unavailable [phone] Encounter Details Date Type Department Care Team (Late st Contact Info) Description 05/25/2023 Orders Only [facility] [address] [facility] [address] [place] [address] Mojgan Calero, SEAFOOD PROCESS WORKER [address] [place] [address] Social History Tobacco Use Types Packs/Day Years Used Date Smoking Tobacco: Former Cigarettes Smokeless Tobacco: Former Alcohol Use Standard Drinks/Week Comments Never 0 (1 standard drink = 0.6 oz pur e alcohol) PHQ-2 Answer Date Recorded Patient Health Questionnaire-2 Score 0 05/21/2023 Comments No Sex and Gender Information Value Date Recorded Sex Assigned at Not on file Legal Sex Female 6:38 PM EDT Gender Identity Not on file Sexual Orientation Not on file documented as of this encounter Plan of Treatment Upcoming Encounters Date Type Department Care Team (Late st Contact Info) Description 05/26/2025 10:20 AM EDT Office Visit [facility] [address] [place] [address] Power Swain DO [address] [place] [address] documented as of this encounter Visit Diagnoses Not on filedocumented in this encounter Care Teams Appraisal Manager Relationship Specialty Start Date End Date Vitaliy Thomson MD [address] [place] [place] [address] PCP - ACO Reach 03/26/23 Vitaliy Thomson MD [address] [place] [address] PCP - General Family Medicine 05/19/23 Fabiola Palumbo NP [address] [place] [address] Nurse Practitioner Family Medicine 05/19/23 01/19/25 Letty Newsome NP [address] [place] [address] Nurse Practitioner Pulmonary Disease 05/19/23 Sima Paul, RN Registered Nurse Family Medicine 08/24/23 documented as of this encounter
--- OUTSIDE RECORDS SUMMARY | 2025-04-02 13:24 | XMS_ITS | Encounter Summary ---
Author Organization [facility] Address [address] [facility] [place] [address] Care Team Providers Care Disaster Recovery Consultant Name Role Phone Vitaliy Thomson MD Unavailable [phone] Vitaliy Thomson MD Primary Care Provider [phone] Fabiola Palumbo NP Unavailable Letty Newsome MOTOR ASSEMBLER Unavailable [phone] Sima Paul RN Unavailable [phone] Encounter Details Date Type Department Care Team (Late st Contact Info) Description 12/18/2023 Abstract [facility] [address] [place] [address] Marcie Cota MA Social History Tobacco Use Types Packs/Day Years Used Date Smoking Tobacco: Former Cigarettes Smokeless Tobacco: Former Alcohol Use Standard Drinks/Week Comments Never 0 (1 standard drink = 0.6 oz pure alcohol) cafffeine intake: 1-2 cups per day AUDIT-C Answer Date Recorded Q1: How often do you have a drink containing alcohol? Never 08/18/2023 Q2: How many drinks containi ng alcohol do you have on a typical day when you are drinking? Patient does not drink Q3: How often do you have si x or more drinks on one occasion? Never 08/18/2023 PHQ-2 Answer Date Recorded Patient Health Questionnaire-2 Score 0 11/30/2023 Comments No Sex and Gender Information Value [...] Office Visit [facility] [address] [place] [address] Power Swain DO [address] [place] [address] documented as of this encounter Visit Diagnoses Not on filedocumented in this encounter Additional Health Concerns Assessment Noted Time PHQ-9 Depression Total Score: 0 11/30/19 24 9:00 AM EST documented as of this encounter Care Teams Disaster Recovery Consultant Relationship Specialty Start Date End Date Vitaliy Thomson MD [address] [place] [address] PCP - ACO Reach 03/26/23 Vitaliy Thomson MD [address] [place] [address] PCP - General Family Medicine 05/19/23 Fabiola Palumbo NP [address] [place] [address] Nurse Practitioner Family Medicine 05/19/23 01/19/25 Letty Newsome NP [address] [place] [address] Nurse Practitioner Pulmonary Disease 05/19/23 Sima Paul, LES Registered Nurse Family Medicine 08/24/23 documented as of this encounter
--- OUTSIDE RECORDS SUMMARY | 2025-04-02 13:24 | XMS_ITS | Encounter Summary ---
Author Organization [facility] Address [address] [facility] [place] [address] Care Team Providers Care Software Designer Name Role Phone Vitaliy Thomson MD Unavailable [phone] Vitaliy Thomson MD Primary Care Provider [phone] Fabiola Palumbo NP Unavailable Letty Newsome LIGHT ADJUSTER Unavailable [phone] Sima Paul RN Unavailable [phone] Encounter Details Date Type Department Care Team (Late st Contact Info) Description 11/07/2024 Abstract [facility] [address] [place] [address] Letty Newsome, LIGHT ADJUSTER [address] [place] [address] Social History Tobacco Use Types Packs/Day Years [...] Date Recorded Patient Health Questionnaire-2 Score 0 08/23/2024 Comments No Sex and Gender Information Value [...] Office Visit [facility] [address] [place] [address] Power Swain DO [address] [place] [address] documented as of this encounter Visit Diagnoses Not on filedocumented in this encounter Additional Health Concerns Assessment Noted Time PHQ-9 Depression Total Score: 0 11/30/19 24 9:00 AM EST documented as of this encounter Care Teams Software Designer Relationship Specialty Start Date End Date Vitaliy Thomson MD [address] [place] [address] PCP - ACO Reach 03/26/23 Vitaliy Thomson MD [address] [place] [address] PCP - General Family Medicine 05/19/23 Fabiola Palumbo NP [address] [place] [address] Nurse Practitioner Family Medicine 05/19/23 01/19/25 Letty Newsome NP [address] [place] [address] Nurse Practitioner Pulmonary Disease 05/19/23 Sima Paul RN Registered Nurse Family Medicine 08/24/23 documented as of this encounter
--- OUTSIDE RECORDS SUMMARY | 2025-04-02 13:24 | XMS_ITS | Encounter Summary ---
Author Organization [facility] Address [address] [place] [address] Care Team Providers Care Mold Yard Supervisor Name Role Phone Vitaliy Thomson MD Unavailable [phone] Vitaliy Thomson MD Primary Care Provider [phone] Letty Newsome STRINGED INSTRUMENT REPAIRER Unavailable [phone] Sima Paul RN Unavailable [phone] Encounter Details Date Type Department Care Team (Latest Contact Info) Description 03/29/2025 Travel Social History Tobacco Use Types Packs/Day Years [...] Upcoming Encounters Date Type Department Care Team ( Contact Info) Description 05/26/2025 10:20 AM EDT Office Visit [facility] [address] [place] [address] Power Swain DO [address] [place] [address] documented as of this encounter Visit Diagnoses Not on filedocumented in this encounter Additional Health Concerns Assessment Noted Time PHQ-9 Depression Total Score: 0 11/30/19 24 9:00 AM EST documented as of this encounter Care Teams Mold Yard Supervisor Relationship Specialty Start Date End Date Vitaliy Thomson MD [address] [place] [address] PCP - ACO Reach 03/26/23 Vitaliy Thomson MD [address] [place] [address] PCP - General Family Medicine 05/19/23 Letty Newsome NP [address] [place] [address] Nurse Practitioner Pulmonary Disease 05/19/23 Sima Paul, LES Registered Nurse Family Medicine 08/24/23 documented as of this encounter
--- OUTSIDE RECORDS SUMMARY | 2025-04-02 13:24 | XMS_ITS | Encounter Summary ---
Author Organization [facility] Address [address] [facility] [place] [address] Care Team Providers Care Welcome Desk Agent Name Role Phone Vitaliy Thomson MD Unavailable [phone] Vitaliy Thomson MD Primary Care Provider [phone] Fabiola Palumbo NP Unavailable Letty eNwsome MISSILE TECHNICIAN Unavailable [phone] Sima Paul RN Unavailable [phone] Encounter Details Date Type Department Care Team (Late st Contact Info) Description 12/24/2023 Orders Only [facility] [address] [place] [address] Letty Newsome, MISSILE TECHNICIAN [address] [place] [address] Cough in adult (Primary Dx) Social History Tobacco Use Types Packs/Day Years [...] Office Visit [facility] [address] [place] [address] Power Swain DO [address] [place] [address] documented as of this encounter Visit Diagnoses Diagnosis Cough in adult- Primary documented in this encounter Additional Health Concerns Assessment Noted Time PHQ-9 Depression Total Score: 0 11/30/19 9:00 AM EST documented as of this encounter Care Teams Welcome Desk Agent Relationship Specialty Start Date End Date Vitaliy Thomson MD [address] [place] [address] PCP - ACO Reach 03/26/23 Vitaliy Thomson MD [address] [place] [address] PCP - General Family Medicine 05/19/23 Fabiola Palumbo NP [address] [place] [address] Nurse Practitioner Family Medicine 05/19/23 01/19/25 Letty Newsome NP [address] [place] [address] Nurse Practitioner Pulmonary Disease 05/19/23 Sima Paul RN Registered Nurse Family Medicine 08/24/23 documented as of this encounter
--- OUTSIDE RECORDS SUMMARY | 2025-04-02 13:24 | XMS_ITS | Encounter Summary ---
Author Organization [facility] Address [address] [facility] [place] [address] Care Team Providers Care Roustabout Crew Name Role Phone Vitaliy Thomson MD Unavailable [phone] Vitaliy Thomson MD Primary Care Provider [phone] Letty Newsome CURBING STONECUTTER Unavailable [phone] Sima Paul RN Unavailable [phone] Encounter Details Date Type Department Care Team (Late st Contact Info) Description 02/06/2025 Abstract [facility] [address] [place] [address] Vitaliy Thomson MD [address] [place] [address] Social History Tobacco Use Types Packs/Day Years [...] Date Recorded Patient Health Questionnaire-2 Score 0 12/20/2024 Comments No Sex and Gender Information Value [...] 05/26/2025 10:20 AM EDT Office Visit [facility] [address] [place] [address] Power Swain DO [address] [place] [address] documented as of this encounter Visit Diagnoses Not on filedocumented in this encounter Additional Health Concerns Assessment Noted Time PHQ-9 Depression Total Score: 0 11/30/19 24 9:00 AM EST documented as of this encounter Care Teams Roustabout Crew Relationship Specialty Start Date End Date Vitaliy Thomson MD [address] [place] [address] PCP - ACO Reach 03/26/23 Vitaliy Thomson MD [address] [place] [address] PCP - General Family Medicine 05/19/23 Letty Newsome NP [address] [place] [address] Nurse Practitioner Pulmonary Disease 05/19/23 Sima Paul RN Registered Nurse Family Medicine 08/24/23 documented as of this encounter
--- OUTSIDE RECORDS SUMMARY | 2025-04-02 13:24 | XMS_ITS | Encounter Summary ---
Author Organization [facility] Address [address] [place] [address] Phone Care Team Providers Care Flame Hardening Machine Setter Name Role Phone Vitaliy Thomson MD Primary Care Provider Supa Lindquist MD PhD Unavailable Jessica Grove RN Unavailable Unavailable Sarath Gamez MD Unavailable [phone] Fabiola Marinelli MD Primary Care Provider Lisette Perkins ACCOUNTS PAYABLE LEAD-FINISHING PAN OPERATOR Unavailable [phone] Theresa Romano MD PhD Unavailable + [phone] Negro Epps MD PhD Unavailable [phone] Encounter Details Date Type Department Care Team (Late st Contact Info) Description 05/07/[address] [facility] [address] [place] [place] [address] Scanning, Generic Provider Social History Tobacco Use Types Packs/Day Years Used Date Smoking Tobacco: Never Assessed Comments Unknown Sex and Gender Information Value Date Recorded Sex Assigned at Not on file Legal Sex Female 4:17 PM EST Gender Identity Not on file Sexual Orientation Not on file documented as of this encounter Plan of Treatment Not on file documented as of this encounter Visit Diagnoses Not on filedocumented in this encounter Additional Health Concerns Infection Onset Date Last Indicated Resolved Time COVID-19 Rule-Out 08/04/2023 08/04/2023 08/04/2023 5:31 AM EDT Protective 08/10/2023 08/10/2023 02/06/2024 5:23 AM EDT documented as of this encounter Care Teams Flame Hardening Machine Setter Relationship Specialty Start Date End Date Vitaliy Thomson MD [address] [place] [address] PCP - General 11/02/16 08/21/23 Fabiola Marinelli MD [address] [place] [address] PCP - General Hematology and Oncology 08/22/23 Supa Lindquist MD PhD [id number] [place] [address] Consulting Physician Hematology and Oncology 08/03/23 Jessica Grove, stunner and shackler Coordinator Case Management 08/04/23 [place] [address] [place] [address] Consulting Physician Hematology and Oncology 08/04/23 11/17/23 Lisette Perkins, ACCOUNTS PAYABLE LEAD-FINISHING PAN OPERATOR [address] [place] [address] Nurse Practitioner Hematology and Oncology 09/14/23 Theresa Romano MD PhD [address] [place], [place] [id number] Consulting Physician Hematology and Oncology 11/18/23 [place] Epps [place] PhD [address] [place] [address] Consulting Physician Hematology and Oncology 01/19/24 documented as of this encounter
--- OUTSIDE RECORDS SUMMARY | 2025-04-02 13:24 | XMS_ITS | Encounter Summary ---
Author Organization [facility] Address [address] [facility] [place] [address] Care Team Providers Care Dry Cleaning Teacher Name Role Phone Vitaliy Thomson MD Unavailable [phone] Vitaliy Thomson MD Primary Care Provider [phone] Fabiola Palumbo NP Unavailable Letty Newsome NP Unavailable [phone] Sima Paul RN Unavailable [phone] Encounter Details Date Type Department Care Team (Late st Contact Info) Description 11/17/2024 Abstract [facility] [address] [place] [address] Fabiola Palumbo NP [address] [place] [address] Social History Tobacco Use Types [...] Visit [facility] [address] [place] [address] Power Swain DO [address] [place] [address] documented as of this encounter Visit Diagnoses Not on filedocumented in this encounter Additional Health Concerns Assessment Noted Time PHQ-9 Depression Total Score: 0 11/30/19 24 9:00 AM EST documented as of this encounter Care Teams Dry Cleaning Teacher Relationship Specialty Start Date End Date Vitaliy Thomson MD [address] [place] [address] PCP - ACO Reach 03/26/23 Vitaliy Thomson MD [address] [place] [address] PCP - General Family Medicine 05/19/23 Fabiola Palumbo NP [address] [place] [address] Nurse Practitioner Family Medicine 05/19/23 01/19/25 Letty Newsome NP [address] [place] [address] Nurse Practitioner Pulmonary Disease 05/19/23 Sima Paul, LES Registered Nurse Family Medicine 08/24/23 documented as of this encounter
--- OUTSIDE RECORDS SUMMARY | 2025-04-02 13:24 | XMS_ITS | Encounter Summary ---
Author Organization [facility] Address [address] [facility] [place] [address] Care Team Providers Care Farm Labor Contractor Name Role Phone Vitaliy Thomson MD Unavailable [phone] Vitaliy Thomson MD Primary Care Provider [phone] Letty Newsome RN STAFF Unavailable [phone] Sima Paul RN Unavailable [phone] Encounter Details Date Type Department Care Team (Late st Contact Info) Description 03/16/2025 Abstract [facility] [address] [place] [address] Letty Newsome, RN STAFF [address] [place] [address] Social History Tobacco Use Types Packs/Day Years [...] EDT Office Visit [facility] [address] [place] [address] Power Swain DO [address] [place] [address] documented as of this encounter Visit Diagnoses Not on filedocumented in this encounter Additional Health Concerns Assessment Noted Time PHQ-9 Depression Total Score: 0 11/30/19 24 9:00 AM EST documented as of this encounter Care Teams Farm Labor Contractor Relationship Specialty Start Date End Date Vitaliy Thomson MD [address] [place] [place] [address] PCP - ACO Reach 03/26/23 Vitaliy Thomson MD [address] [place] [address] PCP - General Family Medicine 05/19/23 Letty Newsome NP [address] [place] [address] [place] [address] Nurse Practitioner Pulmonary Disease 05/19/23 Sima Paul RN Registered Nurse Family Medicine 08/24/23 documented as of this encounter
--- OUTSIDE RECORDS SUMMARY | 2025-04-02 13:24 | XMS_ITS | Encounter Summary ---
Author Organization [facility] Address [address] [place] [address] Care Team Providers Care Mail Processing Machine Operator Name Role Phone Vitaliy Thomson MD Unavailable [phone] Vitaliy Thomson MD Primary Care Provider [phone] Letty Newsome ROUNDING MACHINE TENDER Unavailable [phone] Sima Paul RN Unavailable [phone] Encounter Details Date Type Department Care Team (Late st Contact Info) Description 03/28/2025 External Result Encounter [facility] External Department Unsolicited Fabiola Marinelli MD [address] [place] [address] Social History Tobacco Use Types [...] [facility] [address] [place] [address] Power Swain DO [address] [place] [address] documented as of this encounter Procedures Procedure Name Priority Date/Time Associated Diagnosis Comments PATHOLOGIST SLIDE REVIEW ([facility]) STAT 03/28/2025 8:53 AM EDT documented in this encounter Results * PATHOLOGIST SLIDE REVIEW ([facility]) (03/28/2025 8:53 AM EDT) PATHOLOGIST SLIDE REVIEW Ordered Path Review 03/28/2025 12:36 PM EDT [facility] Other Topography unknown / Unknown 03/28/2025 8:53 AM EDT 03/28/2025 8:57 AM EDT Fabiola Marinelli MD LAB BLOOD ORDERABLES Final Resul t [facility] [address] [facility] [place] [address], [facility] [address] [place] [address] documented in this encounter Visit Diagnoses Not on filedocumented in this encounter Additional Health Concerns Assessment Noted Time PHQ-9 Depression Total Score: 0 11/30/19 24 9:00 AM EST documented as of this encounter Care Teams Mail Processing Machine Operator Relationship Specialty Start Date End Date Vitaliy Thomson MD [address] [place] [address] PCP - ACO Reach 03/26/23 Vitaliy Thomson MD [address] [place] [address] PCP - General Family Medicine 05/19/23 Letty Newsome ROUNDING MACHINE TENDER [address] [place] [address] Nurse Practitioner Pulmonary Disease 05/19/23 Sima Paul, RN Registered Nurse Family Medicine 08/24/23 documented as of this encounter
--- OUTSIDE RECORDS SUMMARY | 2025-04-02 13:24 | XMS_ITS | Encounter Summary ---
Author Organization [facility] Address [address] [facility] [place] [address] Care Team Providers Care Creative Services Coordinator Name Role Phone Vitaliy Thomson MD Unavailable [phone] Vitaliy Thomson MD Primary Care Provider [phone] Letty Newsome OUTREACH TEAM MEMBER Unavailable [phone] Sima Paul RN Unavailable [phone] Encounter Details Date Type Department Care Team (Late st Contact Info) Description 03/30/2025 Results Follow-Up [facility] [address] [place] [address] Power Swain, [address] [place] [address] Social History Tobacco Use Types Packs/Day Years [...] Office Visit [facility] [address] [place] [address] Power Swain DO [address] [place] [address] documented as of this encounter Visit Diagnoses Not on filedocumented in this encounter Additional Health Concerns Assessment Noted Time PHQ-9 Depression Total Score: 0 11/30/19 24 9:00 AM EST documented as of this encounter Care Teams Creative Services Coordinator Relationship Specialty Start Date End Date Vitaliy Thomson MD [address] [place] [place] [address] PCP - ACO Reach 03/26/23 Vitaliy Thomson MD [address] [place] [place] [address] PCP - General Family Medicine 05/19/23 Letty Newsome NP [address] [place] [address] [place] [address] Nurse Practitioner Pulmonary Disease 05/19/23 Sima Paul RN Registered Nurse Family Medicine 08/24/23 documented as of this encounter
--- OUTSIDE RECORDS SUMMARY | 2025-04-02 13:24 | XMS_ITS | Encounter Summary ---
Author Organization [facility] Address [address] [facility] [place] [address] Care Team Providers Care Volunteer Services Coordinator Name Role Phone Vitaliy Thomson MD Unavailable [phone] Vitaliy Thomson MD Primary Care Provider [phone] Fabiola Palumbo NP Unavailable Letty Newsome NP Unavailable [phone] Sima Paul RN Unavailable [phone] Encounter Details Date Type Department Care Team (Late st Contact Info) Description 09/30/2023 Orders Only [facility] [address] [place] [address] Fabiola Palumbo NP [address] [place] [address] Social History Tobacco Use Types Packs/Day Years Used Date Smoking Tobacco: Former Cigarettes Smokeless Tobacco: Former Alcohol Use Standard Drinks/Week Comments Never 0 (1 standard drink = 0.6 oz pur e alcohol) AUDIT-C Answer Date Recorded Q1: How often do you have a drink containing alcohol? Never 08/18/2023 Q2: How many drinks containi ng alcohol do you have on a typical day when you are drinking? Patient does not drink Q3: How often do you have si x or more drinks on one occasion? Never 08/18/2023 PHQ-2 Answer Date Recorded Patient Health Questionnaire-2 Score 0 08/18/2023 Comments No Sex and Gender Information Value Date Recorded Sex Assigned at Not on file Legal Sex Female 6:38 PM EDT Gender Identity Not on file Sexual Orientation Not on file documented as of this encounter Plan of Treatment Upcoming Encounters Date Type Department Care Team (Late st Contact Info) Description 05/26/2025 10:20 AM EDT Office Visit [facility] [address] [place] [address] Power Swain DO [address] [place] [address] documented as of this encounter Procedures Procedure Name Priority Date/Time Associated Diagnosis Comments KAPPA/LAMBDA LIGHT CHAINS FREE W/RATIO RFL VAHID, S Routine 09/29/2023 4:16 PM EST IGG 1, 2, 3, AND 4 Routine 09/29/2023 4:16 PM EST documented in this encounter Results * IgG 1, 2, 3, and 4 (09/29/2023 4:16 PM EST) Blood Venous blood specimen / Unknown us Fabiola Palumbo HEALTH CARE ANALYST LAB BLOOD ORDERABLES Final Resul t * KAPPA/LAMBDA LIGHT CHAINS FREE W/RATIO RFL VAHID, S (09/29/2023 4:16 PM EST) us Fabiola Palumbo HEALTH CARE ANALYST LAB BLOOD ORDERABLES Final Resul t documented in this encounter Visit Diagnoses Not on filedocumented in this encounter Care Teams Volunteer Services Coordinator Relationship Specialty Start Date End Date Vitaliy Thomson MD [address] [place] [address] PCP - ACO Reach 03/26/23 Vitaliy Thomson MD [address] [place] [address] PCP - General Family Medicine 05/19/23 Fabiola Palumbo NP [address] [place] [address] Nurse Practitioner Family Medicine 05/19/23 01/19/25 Letty Newsome NP [address] [place] [address] Nurse Practitioner Pulmonary Disease 05/19/23 Sima Paul, RN Registered Nurse Family Medicine 08/24/23 documented as of this encounter
--- OUTSIDE RECORDS SUMMARY | 2025-04-02 13:24 | XMS_ITS | Encounter Summary ---
Author Organization [facility] Address [address] [facility] [place] [place] [address] Care Team Providers Care Industrial Truck Driver Name Role Phone Vitaliy Thomson MD Unavailable [phone] Vitaliy Thomson MD Primary Care Provider [phone] Letty Newsome POND TENDER Unavailable [phone] Sima Paul RN Unavailable [phone] Encounter Details Date Type Department Care Team (Late st Contact Info) Description 02/15/2025 Abstract [facility] [address] [place] [address] Vitaliy Thomson MD [address] [place] [address] Social History Tobacco Use Types Packs/Day Years [...] [facility] [address] [place] [address] Power Swain DO [address] [place] [address] documented as of this encounter Visit Diagnoses Not on filedocumented in this encounter Additional Health Concerns Assessment Noted Time PHQ-9 Depression Total Score: 0 11/30/19 24 9:00 AM EST documented as of this encounter Care Teams Industrial Truck Driver Relationship Specialty Start Date End Date Vitaliy Thomson MD [address] [place] [address] PCP - ACO Reach 03/26/23 Vitaliy Thomson MD [address] [place] [address] PCP - General Family Medicine 05/19/23 Letty Newsome NP [address] [place] [address] Nurse Practitioner Pulmonary Disease 05/19/23 Sima Paul RN Registered Nurse Family Medicine 08/24/23 documented as of this encounter
--- OUTSIDE RECORDS SUMMARY | 2025-04-02 13:24 | XMS_ITS | Encounter Summary ---
Author Organization [facility] Address [address] [facility] [place] [address] Care Team Providers Care Heat Treat Worker Name Role Phone Vitaliy Thomson MD Unavailable [phone] Vitaliy Thomson MD Primary Care Provider [phone] Fabiola Palumbo NP Unavailable Letty Newsome NP Unavailable [phone] Sima Paul RN Unavailable [phone] Encounter Details Date Type Department Care Team (Late st Contact Info) Description 09/29/2023 Orders Only [facility] [address] [place] [address] Fabiola Palumbo NP [address] [place] [address] Social History Tobacco Use Types Packs/Day [...] [facility] [address] [place] [address] Power Swain DO [address] [place] [address] documented as of this encounter Procedures Procedure Name Priority Date/Time Associated Diagnosis Comments COMPREHENSIVE METABOLIC PANEL Routine 09/29/2023 1:31 PM EST documented in this encounter Results * Comprehensive metabolic panel (09/29/2023 1:31 PM EST) Blood Venous blood specimen / Unknown Fabiola Palumbo NEW CAR MAKE READY MECHANIC LAB BLOOD ORDERABLES Final Resul t documented in this encounter Visit Diagnoses Not on filedocumented in this encounter Care Teams Heat Treat Worker Relationship Specialty Start Date End Date Vitaliy Thomson MD [address] [place] [address] PCP - ACO Reach 03/26/23 Vitaliy Thomson MD [address] [place] [address] PCP - General Family Medicine 05/19/23 Fabiola Palumbo NP [address] [place] [address] Nurse Practitioner Family Medicine 05/19/23 01/19/25 Letty Newsome NP [address] [place] [address] Nurse Practitioner Pulmonary Disease 05/19/23 Sima Palu, RN Registered Nurse Family Medicine 08/24/23 documented as of this encounter
--- OUTSIDE RECORDS SUMMARY | 2025-04-02 13:24 | XMS_ITS | Encounter Summary ---
Author Organization [facility] Address [address] [place] [address] Care Team Providers Care Greens Cutter Name Role Phone Vitaliy Thomson MD Unavailable [phone] Vitaliy Thomson MD Primary Care Provider [phone] Letty Newsome AUTOMATIC PUNCH PRESS OPERATOR Unavailable [phone] Sima Paul RN Unavailable [phone] Encounter Details Date Type Department Care Team (Late st Contact Info) Description 03/14/2025 Results Follow-Up [facility] [address] [facility] [address] [place] [address] Olga Greer, AUTOMATIC PUNCH PRESS OPERATOR [address] [facility] [address] [place] [address] Social History Tobacco Use Types Packs/Day Years [...] [facility] [address] [place] [address] Power Swain DO [address] [place] [address] documented as of this encounter Visit Diagnoses Not on filedocumented in this encounter Additional Health Concerns Assessment Noted Time PHQ-9 Depression Total Score: 0 11/30/19 24 9:00 AM EST documented as of this encounter Care Teams Greens Cutter Relationship Specialty Start Date End Date Vitaliy Thomson MD [address] [place] [address] PCP - ACO Reach 03/26/23 Vitaliy Thomson MD [address] [place] [address] PCP - General Family Medicine 05/19/23 Letty Newsome NP [address] [place] [address] Nurse Practitioner Pulmonary Disease 05/19/23 Sima Paul RN Registered Nurse Family Medicine 08/24/23 documented as of this encounter
--- OUTSIDE RECORDS SUMMARY | 2025-04-02 13:24 | XMS_ITS | Encounter Summary ---
Author Organization [facility] Address [address] [facility] [place] [address] Care Team Providers Care Counter Intelligence Technician Name Role Phone Vitaliy Thomson MD Unavailable [phone] Vitaliy Thomson MD Primary Care Provider [phone] Fabiola Palumbo NP Unavailable Letty Newsome MANAGER MARKET Unavailable [phone] Sima Paul RN Unavailable [phone] Encounter Details Date Type Department Care Team (Late st Contact Info) Description 12/01/2023 Abstract [facility] [address] [place] [address] Marcie Cota MA Social History Tobacco Use [...] SEP [address] [place] [address] Power Swain DO [address] [place] [address] documented as of this encounter Visit Diagnoses Not on filedocumented in this encounter Additional Health Concerns Assessment Noted Time PHQ-9 Depression Total Score: 0 11/30/19 24 9:00 AM EST documented as of this encounter Care Teams Counter Intelligence Technician Relationship Specialty Start Date End Date Vitaliy Thomson MD [address] [place] [address] PCP - ACO Reach 03/26/23 Vitaliy Thomson MD [address] [place] [address] PCP - General Family Medicine 05/19/23 Fabiola Palumbo NP [address] [place] [address] Nurse Practitioner Family Medicine 05/19/23 01/19/25 Letty Newsome NP [address] [place] [address] Nurse Practitioner Pulmonary Disease 05/19/23 Sima Paul, LES Registered Nurse Family Medicine 08/24/23 documented as of this encounter
--- OUTSIDE RECORDS SUMMARY | 2025-04-02 13:24 | XMS_ITS | Encounter Summary ---
Author Organization [facility] Address [address] [facility] [place] [address] Care Team Providers Care Batcher Operator Name Role Phone Vitaliy Thomson MD Unavailable [phone] Vitaliy Thomson MD Primary Care Provider [phone] Fabiola Palumbo NP Unavailable Letty Newsome NP Unavailable [phone] Sima Paul RN Unavailable [phone] Encounter Details Date Type Department Care Team (Late st Contact Info) Description 09/16/2024 Abstract [facility] [address] [place] [address] Fabiola Palumbo NP [address] [place] [address] Social History Tobacco Use Types [...] Visit [facility] [address] [place] [address] Power Swain DO [address] [place] [address] documented as of this encounter Visit Diagnoses Not on filedocumented in this encounter Additional Health Concerns Assessment Noted Time PHQ-9 Depression Total Score: 0 11/30/19 24 9:00 AM EST documented as of this encounter Care Teams Batcher Operator Relationship Specialty Start Date End Date Vitaliy Thomson MD [address] [place] [place] [address] PCP - ACO Reach 03/26/23 Vitaliy Thomson MD [address] [place] [place] [address] PCP - General Family Medicine 05/19/23 Fabiola Palumbo NP [address] [place] [place] [address] Nurse Practitioner Family Medicine 05/19/23 01/19/25 Letty Newsome NP [address] [place] [address] Nurse Practitioner Pulmonary Disease 05/19/23 Sima Paul, LES Registered Nurse Family Medicine 08/24/23 documented as of this encounter
--- OUTSIDE RECORDS SUMMARY | 2025-04-02 13:24 | XMS_ITS | Encounter Summary ---
Author Organization [facility] Address [address] [facility] [place] [address] Care Team Providers Care Equipment Tester Name Role Phone Vitaliy Thomson MD Unavailable [phone] Vitaliy Thomson MD Primary Care Provider [phone] Letty Newsome ORTHOPEDIC CODER Unavailable [phone] Sima Paul RN Unavailable [phone] Encounter Details Date Type Department Care Team (Late st Contact Info) Description 03/29/2025 Bamboo flowsheet [facility] [address] [place] [address] Power Swain, [address] [place] [address] Social History Tobacco Use Types Packs/Day Years [...] Visit [facility] [address] [place] [address] Power Swain DO [address] [address] documented as of this encounter Visit Diagnoses Not on filedocumented in this encounter Additional Health Concerns Assessment Noted Time PHQ-9 Depression Total Score: 0 11/30/19 24 9:00 AM EST documented as of this encounter Care Teams Equipment Tester Relationship Specialty Start Date End Date Vitaliy Thomson MD [address] [place] [address] PCP - ACO Reach 03/26/23 Vitaliy Thomson MD [address] [place] [place] [address] PCP - General Family Medicine 05/19/23 Letty Newsome NP [address] [place] [address] Nurse Practitioner Pulmonary Disease 05/19/23 Sima Paul RN Registered Nurse Family Medicine 08/24/23 documented as of this encounter
--- OUTSIDE RECORDS SUMMARY | 2025-04-02 13:24 | XMS_ITS | Encounter Summary ---
Author Organization [facility] Address [address] [place] [address] Care Team Providers Care Pararescue Craftsman Name Role Phone Vitaliy Thomson MD Unavailable [phone] Vitaliy Thomson MD Primary Care Provider [phone] Letty Newsome REAL ESTATE INVESTOR Unavailable [phone] Sima Paul RN Unavailable [phone] Encounter Details Date Type Department Care Team (Late st Contact Info) Description 03/28/2025 External Result Encounter [facility] External Department Unsolicited Fabiola Marinelli MD [address] [place] [address] Social History Tobacco Use Types [...] Office Visit [facility] [address] [place] [address] Power Swain, DO [address] [place] [address] Pending Results Name Type Priority Associated Diagnoses Date /Time CBC auto differential Lab STAT 8:53 AM EDT documented as of this encounter Procedures Procedure Name Priority Date/Time Associated Diagnosis Comments SCAN AND CBC STAT 03/28/2025 8:53 AM EDT documented in this encounter Results * (ABNORMAL) SCAN AND CBC (03/28/2025 8:53 AM EDT) WBC 2.1(L) 3.8 - 11.6 10*3/uL 03/28/2025 9:03 AM EDT [facility] UNCORRECTED WHITE BLOOD COUNT 2.1(L) 3.8 - 11.6 10*3/uL 03/28/2025 9:03 AM EDT [facility] RBC 3.55(L) 3.60 - 5.00 10*6/uL 03/28/2025 9:03 AM EDT [facility] HEMOGLOBIN 12.1 11.8 - 15.4 g/dL 03/28/2025 9:03 AM EDT [facility] HEMATOCRIT 35.4 34.0 - 46.4 % 03/28/2025 9:03 AM EDT [facility] MCV 99.9 80 - 100 fL 03/28/2025 9:03 AM EDT [facility] MCH 34.1 24.7 - 34.3 pg 03/28/2025 9:03 AM EDT [facility] MCHC 34.1 32.0 - 35.0 g/dL 03/28/2025 9:03 AM EDT [facility] RED CELL DISTRIBUTION WIDTH, RDW 16.1(H) 11.9 - 15.3 % 03/28/2025 9:03 AM EDT [facility] PLATELET COUNT 50(L) 150 - 450 10*3/uL 03/28/2025 9:03 AM EDT [facility] MEAN PLATELET VOLUME, MPV 7.7 6.3 - 10.7 fL 03/28/2025 9:03 AM EDT [facility] NEUTROPHILS, % 52.3 . % 03/28/2025 10:39 AM EDT [facility] LYMPHOCYTES, % 19.9 . % 03/28/2025 10:39 AM EDT [facility] MONOCYTE/MACROPHA GE, % 14.1 . % 03/28/2025 10:39 AM EDT [facility] EOSINOPHILS, % 13.0 . % 03/28/2025 10:39 AM EDT [facility] BASOPHILS, % 0.7 . % 03/28/2025 10:39 AM EDT [facility] NRBC 0.1 0 - 0.5 /100{WBC} 03/28/2025 10:39 AM EDT [facility] NEUTROPHILS 1.1(L) 1.8 - 7.7 10*3/uL 03/28/2025 10:39 AM EDT [facility] LYMPHOCYTES 0.4(L) 1.00 - 4.8 10*3/uL 03/28/2025 10:39 AM EDT [facility] MONOCYTES 0.3 0.0 - 0.8 10*3/uL 03/28/2025 10:39 AM EDT [facility] EOSINOPHILS 0.3 0.0 - 0.45 10*3/uL 03/28/2025 10:39 AM EDT [facility] BASOPHILS 0.0 0.0 - 0.2 10*3/uL 03/28/2025 10:39 AM [facility] Blood (Blood) 03/28/2025 8:5 3 AM EDT 03/28/2025 8:57 AM EDT Fabiola Marinelli MD LAB BLOOD ORDERABLES Final Resul t [facility] [address] [place] [address], [facility] [address] [place] [address] documented in this encounter Visit Diagnoses Not on filedocumented in this encounter Additional Health Concerns Assessment Noted Time PHQ-9 Depression Total Score: 0 11/30/19 24 9:00 AM EST documented as of this encounter Care Teams Pararescue Craftsman Relationship Specialty Start Date End Date Vitaliy Thomson MD [address] [place] [address] PCP - ACO Reach 03/26/23 Vitaliy Thomson MD [address] [place] [address] PCP - General Family Medicine 05/19/23 Letty Newsome REAL ESTATE INVESTOR [address] [place] [place] [address] Nurse Practitioner Pulmonary Disease 05/19/23 Sima Paul, RN Registered Nurse Family Medicine 08/24/23 documented as of this encounter
--- OUTSIDE RECORDS SUMMARY | 2025-04-02 13:24 | XMS_ITS | Encounter Summary ---
Author Organization [facility] Address [address] [facility] [place] [address] Care Team Providers Care Production Checker Name Role Phone Vitaliy Thomson MD Unavailable [phone] Vitaliy Thomson MD Primary Care Provider [phone] Letty Newsome HIM CODER Unavailable [phone] Sima Paul RN Unavailable [phone] Encounter Details Date Type Department Care Team (Late st Contact Info) Description 03/02/2025 Abstract [facility] [address] [place] [id number] Power Swain DO [address] [place] [address] Social History Tobacco Use Types Packs/Day Years [...] [facility] [address] [place] [address] Power Swain DO [address] [place] [address] documented as of this encounter Visit Diagnoses Not on filedocumented in this encounter Additional Health Concerns Assessment Noted Time PHQ-9 Depression Total Score: 0 11/30/19 24 9:00 AM EST documented as of this encounter Care Teams Production Checker Relationship Specialty Start Date End Date Vitaliy Thomson MD [address] [place] [address] PCP - ACO Reach 03/26/23 Vitaliy Thomson MD [address] [place] [address] PCP - General Family Medicine 05/19/23 Letty Newsome NP [address] [place] [address] Nurse Practitioner Pulmonary Disease 05/19/23 Sima Paul RN Registered Nurse Family Medicine 08/24/23 documented as of this encounter
--- OUTSIDE RECORDS SUMMARY | 2025-04-02 13:24 | XMS_ITS | Encounter Summary ---
Author Organization [facility] Address [address] [facility] [place] [address] Care Team Providers Care Framing Inspector Name Role Phone Vitaliy Thomson MD Unavailable [phone] Vitaliy Thomson MD Primary Care Provider [phone] Fabiola Palumbo NP Unavailable Letty Newsome BLUEPRINT MACHINE OPERATOR Unavailable [phone] Sima Paul RN Unavailable [phone] Encounter Details Date Type Department Care Team (Late st Contact Info) Description 04/13/2023 Clinisync Result Encounter [facility] External Department Unsolicited Vitaliy Thomson MD [address] [place] [address] Social History Tobacco Use Types Packs/Day Years [...] Office Visit [facility] [address] [place] [address] Power Swain DO [address] [place] [address] documented as of this encounter Procedures Procedure Name Priority Date/Time Associated Diagnosis Comments ECHO 04/13/2023 10:01 AM EDT documented in this encounter Results * ECHO (04/13/2023 10:01 AM EDT) Anatomical Region Laterality Modality Other 04/13/2023 10:0 1 AM EDT Narrative 04/13/2023 12:42 PM EDT Echocardiography Report: Transthoracic Echo [facility] Date of service: 04/13/2023 10:01:47 AM ENGRAVER Ordering physician: JUAN J WELDON Indication: Re-evaluation of known ascending aortic dilatation to establish baseline Technologist: Melisa Monson Interpreting physician: Douglas Rodriguez MD PATIENT: Name: MRS. MOJGAN PÉREZ : 1955 Age: 67 years Gender: F Primary rhythm: sinus. Height: 157.50 cm BSA: 1.91 m? Weight: 83.01 kg BMI: 33.5 kg/m? Heart rate 75 bpm Blood pressure 103/51 mmHg Color Doppler was utilized to interrogate the cardiac valves assessed and spectral Doppler was utilized to determine the flow velocities and pressure gradients reported in this exam. MEASUREMENTS: Value Indexed Normal Max aortic dimension 4.2 cm Ao < 3.8 Left atrial volume 44 ml (4ch A-L) 23 ml/m? Ezekiel <= 34 LV ID (diastole) 2.7 cm (2D) 1.43 cm/m? LV ID (systole) 1.8 cm (2D) 0.93 cm/m? IVS, leaflet tips 1.2 cm (2D) Posterior wall thickness 1.3 cm (2D) Left ventricular mass 97 g (2D) 51 g/m? LV stroke volume 62 ml (2D 4-ch.) LV end diastolic volume 88 ml (2D 4-ch.) 46.4 ml/m? 29<=EDVi<62 LV end systolic volume 26 ml (2D 4-ch.) 13.8 ml/m? Ejection Fraction 70 % (2D 4-ch.) EF > 54 FINDINGS: LEFT VENTRICLE The left ventricle is normal in size. Left ventricular systolic function is normal. Grade I left ventricular diastolic dysfunction. Mitral annular lateral E/e': 7.6. Mitral annular septal E/e': 10.9. Wall Motion: All scored segments are normal. RIGHT VENTRICLE The right ventricle is normal in size. Right ventricular systolic function is normal. RV systolic tissue Doppler velocity is 14.0 cm/s. Tricuspid annular displacement is 2.8 cm. Estimated right ventricular systolic pressure is likely underestimated due to a weak or incomplete tricuspid regurgitation signal and is, at least, 24 mmHg consistent with normal pulmonary artery pressures. Estimated right atrial pressure is 3 mmHg based on IVC assessment. LEFT ATRIUM The left atrial cavity is normal in size. Pulmonary Veins: The pulmonary venous pattern showed normal systolic flow. RIGHT ATRIUM The right atrial cavity is normal in size. A venous catheter is noted in the right atrium. Inferior Vena Cava: The inferior vena cava appears normal measuring 1.5 cm. The vessel decreases greater than 50 percent with inspiration. MITRAL VALVE There is trace mitral valve regurgitation. There is no thickening. The pressure half time is 64 msec. The peak mitral E/A ratio is 0.85. The average mitral E/e' ratio is 9.3. The mitral flow deceleration time is 220 msec. TRICUSPID VALVE The tricuspid valve leaflets are structurally normal. There is trace tricuspid valve regurgitation. The hepatic venous pattern showed normal systolic flow. AORTIC VALVE There is trace (trace - 1+) aortic valve regurgitation. Tricuspid aortic valve. There is no thickening. PULMONIC VALVE The pulmonic valve was not seen or not interrogated. There is trace pulmonic valve regurgitation. AORTA The visualized aorta is dilated. Measurements - Mid ascending aorta 4.2 cm. Distal ascending aorta 4.2 cm. Mid arch 3.5 cm. INTERATRIAL SEPTUM There is no evidence of intracardiac shunting as detected by Doppler. INTERVENTRICULAR SEPTUM There is normal motion of the interventricular septum. There is no flow through the interventricular septum as detected by Doppler. CONCLUSIONS: - Exam indication: Re-evaluation of known ascending aortic dilatation to establish baseline - The left ventricle is normal in size. Left ventricular systolic function is normal. EF = 70 ? 5% (2D 4-ch.) Grade I left ventricular diastolic dysfunction. - The right ventricle is normal in size. Right ventricular systolic function is normal. - The visualized aorta is dilated with a maximal dimension of 4.2 cm. - Estimated right ventricular systolic pressure is likely underestimated due to a weak or incomplete tricuspid regurgitation signal and is, at least, 24 mmHg consistent with normal pulmonary artery pressures. Estimated right atrial pressure is 3 mmHg based on IVC assessment. - Exam was compared with the prior CC echocardiographic exam performed on 08/23/21. No significant change. * * * Final * * * CC [employer] Image : [id number]^[employer]^SI^SUID Procedure Note Radiology, Radiologist, MD - 04/13/2023 Echocardiography Report: Transthoracic Echo [facility] Date of service: 04/13/2023 10:01:47 AM ENGRAVER Ordering physician: JUAN J WELDON Indication: Re-evaluation of known ascending aortic dilatation toestablish baseline Technologist: Melisa Monson Interpreting physician: Douglas Rodriguez MD PATIENT: Name: MRS. MOJGAN PÉREZ : 1955 Age: 67 years Gender: F Primary rhythm: sinus. Height: 157.50 cm BSA: 1.91 m? Weight: 83.01 kg BMI: 33.5 kg/m? Heart rate 75 bpm Blood pressure 103/51 mmHg Color Doppler was utilized to interrogate the cardiac valves assessed andspectral Doppler was utilized to determine the flow velocities andpressure gradients reported in this exam. MEASUREMENTS: Value Indexed Normal Max aortic dimension 4.2 cm Ao < 3.8 Left atrial volume 44 ml (4ch A-L) 23 ml/m? Ezekiel <= 34 LV ID (diastole) 2.7 cm (2D) 1.43 cm/m? LV ID (systole) 1.8 cm (2D) 0.93 cm/m? IVS, leaflet tips 1.2 cm (2D) Posterior wall thickness 1.3 cm (2D) Left ventricular mass 97 g (2D) 51 g/m? LV stroke volume 62 ml (2D 4-ch.) LV end diastolic volume 88 ml (2D 4-ch.) 46.4 ml/m? 29<=EDVi<62 LV end systolic volume 26 ml (2D 4-ch.) 13.8 ml/m? Ejection Fraction 70 % (2D 4-ch.) EF > 54 FINDINGS: LEFT VENTRICLE The left ventricle is normal in size. Left ventricular systolic function is normal. Grade I left ventricular diastolic dysfunction. Mitral annular lateral E/e': 7.6. Mitral annular septal E/e': 10.9. Wall Motion: All scored segments are normal. RIGHT VENTRICLE The right ventricle is normal in size. Right ventricular systolic function is normal. RV systolic tissue Dopplervelocity is 14.0 cm/s. Tricuspid annular displacement is 2.8 cm. Estimated right ventricular systolic pressure is likely underestimated dueto a weak or incomplete tricuspid regurgitation signal and is, at least,24 mmHg consistent with normal pulmonary artery pressures. Estimated rightatrial pressure is 3 mmHg based on IVC assessment. LEFT ATRIUM The left atrial cavity is normal in size. Pulmonary Veins: The pulmonary venous pattern showed normal systolic flow. RIGHT ATRIUM The right atrial cavity is normal in size. A venous catheter is noted inthe right atrium. Inferior Vena Cava: The inferior vena cava appears normal measuring 1.5 cm. The vesseldecreases greater than 50 percent with inspiration. MITRAL VALVE There is trace mitral valve regurgitation. There is no thickening. Thepressure half time is 64 msec. The peak mitral E/A ratio is 0.85. Theaverage mitral E/e' ratio is 9.3. The mitral flow deceleration time is 220msec. TRICUSPID VALVE The tricuspid valve leaflets are structurally normal. There is tracetricuspid valve regurgitation. The hepatic venous pattern showed normalsystolic flow. AORTIC VALVE There is trace (trace - 1+) aortic valve regurgitation. Tricuspid aorticvalve. There is no thickening. PULMONIC VALVE The pulmonic valve was not seen or not interrogated. There is tracepulmonic valve regurgitation. AORTA The visualized aorta is dilated. Measurements - Mid ascending aorta 4.2 cm. Distal ascending aorta 4.2 cm.Mid arch 3.5 cm. INTERATRIAL SEPTUM There is no evidence of intracardiac shunting as detected by Doppler. INTERVENTRICULAR SEPTUM There is normal motion of the interventricular septum. There is no flowthrough the interventricular septum as detected by Doppler. CONCLUSIONS: - Exam indication: Re-evaluation of known ascending aortic dilatation toestablish baseline - The left ventricle is normal in size. Left ventricular systolic functionis normal. EF = 70 ? 5% (2D 4-ch.) Grade I left ventricular diastolicdysfunction. - The right ventricle is normal in size. Right ventricular systolicfunction is normal. - The visualized aorta is dilated with a maximal dimension of 4.2 cm. - Estimated right ventricular systolic pressure is likely underestimateddue to a weak or incomplete tricuspid regurgitation signal and is, atleast, 24 mmHg consistent with normal pulmonary artery pressures.Estimated right atrial pressure is 3 mmHg based on IVC assessment. - Exam was compared with the prior CC echocardiographic exam performed on08/23/21. No significant change. * * * Final * * * [facility] [employer] Image :[id number]^[employer]^SI^SUID us Vitaliy Thomson MD [facility] Final Result documented in this encounter Visit Diagnoses Not on filedocumented in this encounter Care Teams Framing Inspector Relationship Specialty Start Date End Date Vitaliy Thomson MD [address] [place] [address] PCP - ACO Reach 03/26/23 Vitaliy Thomson MD [address] [place] [address] PCP - General Family Medicine 05/19/23 Fabiola Palumbo NP [address] [place] [address] Nurse Practitioner Family Medicine 05/19/23 01/19/25 Letty Newsome NP [address] [place] [address] Nurse Practitioner Pulmonary Disease 05/19/23 Sima Paul, LES Registered Nurse Family Medicine 08/24/23 documented as of this encounter
--- OUTSIDE RECORDS SUMMARY | 2025-04-02 13:24 | XMS_ITS | Encounter Summary ---
Author Organization [facility] Address [address] [place] [address] Care Team Providers Care Massage Therapist Name Role Phone Vitaliy Thomson MD Unavailable [phone] Vitaliy Thomson MD Primary Care Provider [phone] Letty Newsome PERSONNEL SECURITY SPECIALIST Unavailable [phone] Sima Paul RN Unavailable [phone] Reason for Visit * Reason Comments Med Change Request Encounter Details Date Type Department Care Team (Late st Contact Info) Description 02/16/2025 Refill [facility] [address] [place] [address] Power Swain DO [address] [place] [address] Seasonal allergic rhinitis due to pollen Social History Tobacco Use Types Packs/Day Years [...] Visit [facility] [address] [place] [address] Power Swain DO [address] [place] [address] documented as of this encounter Visit Diagnoses Diagnosis Seasonal allergic rhinitis due to pollen documented in this encounter Additional Health Concerns Assessment Noted Time PHQ-9 Depression Total Score: 0 11/30/19 24 9:00 AM EST documented as of this encounter Care Teams Massage Therapist Relationship Specialty Start Date End Date Vitaliy Thomson MD [address] [place] [address] PCP - ACO Reach 03/26/23 Vitaliy Thomson MD [address] [place] [address] PCP - General Family Medicine 05/19/23 Letty Newsome NP [address] [place] [address] Nurse Practitioner Pulmonary Disease 05/19/23 Sima Paul RN Registered Nurse Family Medicine 08/24/23 documented as of this encounter
--- OUTSIDE RECORDS SUMMARY | 2025-04-02 13:24 | XMS_ITS | Encounter Summary ---
Author Organization [facility] Address [address] [place] [address] Care Team Providers Care Vibration Engineer Name Role Phone Vitaliy Thomson MD Unavailable [phone] Vitaliy Thomson MD Primary Care Provider [phone] Fabiola Palumbo NP Unavailable Letty Newsome BELLHOP Unavailable [phone] Sima Paul RN Unavailable [phone] Encounter Details Date Type Department Care Team (Late st Contact Info) Description 09/21/2024 External Result Encounter [facility] External Department Unsolicited Fabiola Marinelli MD [address] [place] [address] Social History Tobacco Use Types Packs/Day Years [...] Office Visit [facility] [address] [place] [address] Power Swain, DO [address] [place] [address] documented as of this encounter Procedures Procedure Name Priority Date/Time Associated Diagnosis Comments PET/CT SKULL BASE TO MID THIGH 09/21/2024 4:02 PM EST documented in this encounter Results * PET/CT skull base to mid thigh (09/21/2024 4:02 PM EST) Anatomical Region Laterality Modality Body Computed Tomogra phy 09/21/2024 4:02 PM EST Impressions 09/21/2024 4:10 PM EST Diffuse patchy abnormal radiotracer accumulation throughout the skeletal structures. Similar distribution of prior examination. No new areas of abnormal tracer accumulation. PRELIMINARY RESULTS: None given Impression dictated by: Jorge Duffy M.D.09/21/2024 4:07 PM Dictation Location: [facility]16 Transcribed By: [facility] 09/21/24 1607 Dictated By: Jorge Duffy DO 09/21/24 1602 Signed By: <Electronically signed by Jorge Duffy DO in OV> 09/21/24 1607 Narrative 09/21/2024 4:[address] 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 Multiplanar PET/CT fusion images. 11.45 mCi of F-18 1/2 administered FINDINGS: Diffuse abnormal increased radiotracer to left leg to the left the calvarium, spine, sternum, clavicles, shoulder, distal humerus, proximal radius and ulna, pelvis, femurs, left tibia and bilateral feet. Similar distribution from prior examination. Consistent with diffuse marrow infiltrative changes in patient's history of multiple myeloma. No new areas of abnormal retrospect circulation identified. Physiologic uptake of the kidneys and bladder. Similar lower mid to ventral wall hernia containing fat. PET/PET NaF bone subq (nopr) Procedure Note Radiology, Radiologist, MD - 09/21/[address] [facility] Main [place] [address] [place] [address] Nuclear Medicine Report Signed Patient: Mojgan Snider SMR#: [id number] : 7Acct:[id number] Age/Sex: 69 / FADM Date: 09/21/24 Loc: Room:Type: [facility] Attending Dr: Fabiola Marinelli MD Copies to: MD Cilve Downey Jeffrey S DO Ordering Provider: Fabiola Marinelli MD Date of Service: 09/21/24 PET/PET NaF bone subq (nopr): C90.00 - Multiplemyeloma not having achieved remission PET/CT FUSION IMAGING CLINICAL INFORMATION: Smoldering myeloma COMPARISON : 03/09/2023 TECHNIQUE: Noncontrasted CT scan from the base of the skull to the upperthigh followed by PET imaging. Multiplanar PET/CT fusion images. 11.45 mCi of F-18 1/2 administered FINDINGS: Diffuse abnormal increased radiotracer to left leg to the left thecalvarium, spine, sternum, clavicles, shoulder, distal humerus, proximal radius and ulna, pelvis,femurs, left tibia and bilateral feet. Similar distribution from prior examination. Consistentwith diffuse marrow infiltrative changes in patient's history of multiple myeloma. No newareas of abnormal retrospect circulation identified. Physiologic uptake of the kidneys and bladder.Similar lower mid to ventral wall hernia containing fat. PET/PET NaF bone subq (nopr) IMPRESSION: Diffuse patchy abnormal radiotracer accumulation throughout the skeletalstructures. Similar distribution of prior examination. No new areas of abnormaltracer accumulation. PRELIMINARY RESULTS: None given Impression dictated by: Jorge Duffy M.D.09/21/2024 4:07 PM Dictation Location: [id number] Transcribed By: [facility] 09/21/24 1607 Dictated By: Jorge Duffy DO 09/21/24 1602 Signed By: <Electronically signed by Jorge Duffy DO in OV> 09/21/24 1607 Fabiola Marinelli MD IMG CT PROCEDURES Final Result documented in this encounter Visit Diagnoses Not on filedocumented in this encounter Additional Health Concerns Assessment Noted Time PHQ-9 Depression Total Score: 0 11/30/19 9:00 AM EST documented as of this encounter Care Teams Vibration Engineer Relationship Specialty Start Date End Date Vitaliy Thomson MD [address] [place] [address] PCP - ACO Reach 03/26/23 Vitaliy Thomson MD [address] [place] [address] PCP - General Family Medicine 05/19/23 Fabiola Palumbo NP [address] [place] [address] Nurse Practitioner Family Medicine 05/19/23 01/19/25 Letty Newsome NP [address] [place] [address] Nurse Practitioner Pulmonary Disease 05/19/23 Sima Paul, LES Registered Nurse Family Medicine 08/24/23 documented as of this encounter
--- OUTSIDE RECORDS SUMMARY | 2025-04-02 13:24 | XMS_ITS | Clinical Summary ---
Author Organization [facility] Address [address] [place] [address] Care Team Providers Care Inspector [employer] Name Role Phone Yinka Thomson MD Unavailable [phone] Yinka Thomson MD Primary Care Provider [phone] Letty Newsome DAIRY TESTER Unavailable [phone] Sima Paul RN Unavailable [phone] Allergies Active Allergy Reactions Criticality Noted Date Comments Amoxicillin Swelling,Rash Low 03/17/2006 Antazoline Itching 05/21/2023 Other Reaction(s): Unknown Diclofenac Unknown,Hives 05/25/2019 Diclofenac Sodium Hives 05/25/2019 Doxycycline Unknown,Swelling 03/17/2006 Erythromycin Hives 10/31/2013 Erythromycin Base Hives 12/17/2023 Latex Unknown,Hives,Rash Medium 04/13/2019 Moxifloxacin Hives,Rash,Unknown Low 05/25/2019 Other Dizziness 11/21/2021 Other Reaction(s): dizziness Quinolones Hives 04/10/2024 Other Reaction(s): Hives, Unknown Reaction Other Reaction(s): Unknown Reaction Tetracycline Unknown,Hives,Rash Medium 04/13/2019 Wound Dressing Adhesive Unknown 05/15/2016 Medications acyclovir (Zovirax) 400 MG tablet Take 400 mg by mouth in the morning and 400 mg before bedtime. Active cholecalciferol (Vitamin D-3) 125 MCG (5000 UT) capsule TAKE 1 CAPSULE BY MOUTH EVERY DAY FOR 90 DAYS 02/28/20 23 Active Cyanocobalamin (Vitamin B-12) 1000 MCG sublingual tablet DISSOLVE 1 TABLET UNDER THE TONGUE ONCE A DAY 03/03/20 23 Active gabapentin (Neurontin) 400 MG capsule 2 (two) times a day 09/04/20 22 Active oxyCODONE (Roxicodone) 10 MG immediate release tablet TAKE 1 TABLET BY MOUTH FOUR TIMES A DAY NEEDED Active potassium chloride ER (Micro-K) 10 MEQ ER capsule Take 10 mEq by mouth in the morning. Active ondansetron ODT (Zofran-ODT) 8 MG disintegrating tablet Take 8 mg by mouth every 8 (eight) hours if needed for nausea or vomiting. 05/10/20 23 Active melatonin tablet Take 2 mg by mouth at bedtime Active EPINEPHrine (Epipen) 0.3 MG/0.3ML injection syringeIndication s:History of allergic drug reaction Inject 0.3 mL (0.3 mg) as directed 1 (one) time for 1 dose use as directed for allergic reaction and then call 911 0.3 mL 1 02/22/20 24 Active naloxone (Narcan) 4 mg/0.1 mL nasal spray Administer 4 mg into affected nostril(s) 02/01/20 24 Active sulfamethoxazole- trimethoprim (Bactrim DS) 800-160 MG per tablet TAKE 1 TABLET BY MOUTH EVERY THURSDAY, THURSDAY AND Thursday01/11/20 24 Active Budeson-Glycopyrr ol-Formoterol (Breztri Aerosphere) 160-9-4.8 MCG/ACT aerosol Inhale 2 puffs in the morning and 2 puffs before bedtime. Active Teclistamab-cqyv 30 MG/3ML solution 03/21/20 24 Active DULoxetine (Cymbalta) [address] capsuleIndication s:Fibromyalgia Take 1 capsule (60 mg) by mouth Daily Do not crush or chew. 90 capsule 3 04/28/20 24 025 Active glucose blood (FREESTYLE LITE) test stripIndications: Type 2 diabetes mellitus with other specified complication, unspecified whether prison insulin use ([facility]) Use as instructed 100 each 3 05/30/20 24 Active metFORMIN XR (Glucophage-XR) 500 MG 24 hr tabletIndications :Diabetes mellitus without complication Take 1 tablet (500 mg) by mouth Daily 90 tablet 3 06/16/20 24 025 Active carvedilol (Coreg) 12.5 MG tabletIndications :Hypertension, unspecified type (CMS/HCC) Take 1 tablet (12.5 mg) by mouth in the morning and 1 tablet (12.5 mg) in the evening. Take with meals. 60 tablet 11 06/20/20 24 025 Active FreeStyle lancets USE 1 LANCET EVERY DAY *E11.9* 08/29/20 24 Active atorvastatin (Lipitor) 40 MG tabletIndications :Hyperchylomicron emia (CMS/HCC) Take 1 tablet (40 mg) by mouth Daily TAKE 1 TABLET BY MOUTH EVERY DAY FOR 90 DAYS 90 tablet 2 10/03/20 24 025 Active cetirizine (ZyrTEC) 10 MG tabletIndications :Seasonal allergic rhinitis due to pollen Take 1 tablet (10 mg) by mouth at bedtime 90 tablet 3 11/16/19 25 026 Active spironolactone (Aldactone) 50 MG tabletIndications :Chronic obstructive pulmonary disease, unspecified COPD type (CMS/HCC) Take 1 tablet (50 mg) by mouth Daily 90 tablet 3 12/14/19 25 026 Active furosemide (Lasix) 20 MG tabletIndications :Essential hypertension (CMS/HCC) Take 1 tablet (20 mg) by mouth Daily 90 tablet 3 12/14/19 25 026 Active hydrocortisone (Anusol-HC) 2.5 % rectal cream APPLY RECTALLY 2 TO 4 TIMES PER DAY NEEDED FOR HEMORRHOIDS 11/16/19 25 Active magnesium oxide (Mag-Ox) 400 (240 Mg) MG tablet Take 400 mg by mouth Daily 12/29/19 25 Active Respiratory Therapy Supplies (Nebulizer Mask Adult/Tubing) miscIndications:C OPD with acute exacerbation (CMS/HCC) 1 Application every 6 (six) hours if needed (shortness of breath, wheezing) 2 each 2 01/18/20 25 025 Active magnesium oxide (Mag-Ox) 400 MG tablet Take 1 tablet by mouth Daily 01/25/20 25 Active albuterol (2.5 MG/3ML) 0.083% nebulizer solutionIndicatio ns:Chronic obstructive pulmonary disease, unspecified COPD type (CMS/HCC) Take 3 mL (2.5 mg) by nebulization every 6 (six) hours if needed for wheezing 75 mL 2 03/01/20 25 Active fluticasone (Flonase) 50 MCG/ACT nasal sprayIndications: Seasonal allergic rhinitis due to pollen Administer 2 sprays into each nostril in the morning and 2 sprays before bedtime. 16 g 2 03/01/20 Active Semaglutide,0.25 or 0.5MG/DOS, (Ozempic, 0.25 or 0.5 MG/DOSE,) 2 MG/3ML solution pen-injectorIndic ations:Type 2 diabetes mellitus with other specified complication, without long-term current use of insulin,Class 1 obesity due to excess calories with serious comorbidity and body mass index (BMI) of 33.0 to 33.9 in adult Inject 0.5 mg under the skin 1 (one) time per week 9 mL 3 03/23/20 025 Active lansoprazole (Prevacid) [address] capsuleIndication s:Gastroesophagea l reflux disease without esophagitis Take 1 capsule (30 mg) by mouth Daily Do not crush or chew. 30 capsule 1 03/29/20 25 025 Active nitrofurantoin, macrocrystal-mono hydrate, (Macrobid) 100 MG capsuleIndication s:Acute cystitis without hematuria Take 1 capsule (100 mg) by mouth in the morning and 1 capsule (100 mg) before bedtime. Do all this for 5 days. 10 capsule 03/29/20 25 025 Active pantoprazole (Protonix) 20 MG EC tabletIndications :Gastroesophageal reflux disease without esophagitis Take 1 tablet (20 mg) by mouth in the morning and 1 tablet (20 mg) before bedtime. Do not crush, chew, or split.. 180 tablet 1 12/01/19 025 Discontinu ed(Ineffec tive) Semaglutide,0.25 or 0.5MG/DOS, (Ozempic, 0.25 or 0.5 MG/DOSE,) 2 MG/3ML solution pen-injectorIndic ations:Type 2 diabetes mellitus with other specified complication, without long-term current use of insulin,Class 1 obesity due to excess calories with serious comorbidity and body mass index (BMI) of 33.0 to 33.9 in adult Inject 0.5 mg under the skin 1 (one) time per week 9 mL 12/07/19 25 025 Discontinu ed(Reorder ) predniSONE (Deltasone) 20 MG tabletIndications :Acute recurrent maxillary sinusitis Take 1 tablet (20 mg) by mouth in the morning and 1 tablet (20 mg) before bedtime. Do all this for 5 days. 10 tablet 03/01/20 25 025 Discontinu ed(Therapy completed) nitrofurantoin, macrocrystal-mono hydrate, (Macrobid) 100 MG capsuleIndication s:Dysuria Take 1 capsule (100 mg) by mouth in the morning and 1 capsule (100 mg) in the evening. Take with meals. Do all this for 7 days. 14 capsule 03/13/20 25 025 fluconazole (Diflucan) 150 MG tabletIndications :Recurrent candidiasis of vagina Take 1 tablet (150 mg) by mouth Daily for 3 days Take one tablet then another tablet 72 hours later if symptoms do not resolve 1 tablet 1 03/29/20 25 025 Active Problems Problem Noted Date Diagnosed Date Abnormal liver ultrasound 01/10/2025 Claustrophobia 01/10/2025 Hepatocellular carcinoma 01/10/2025 Liver lesion 01/10/2025 Bleeding hemorrhoids 08/25/2024 Lymphopenia 08/25/2024 Thrombocytopenia 08/25/2024 Abnormal CXR (chest x-ray) 08/10/2024 Spontaneous bacterial peritonitis (HCC) 08/10/20 Acute metabolic encephalopathy 06/20/2024 Bacteremia 06/20/2024 Paroxysmal atrial fibrillation 06/20/2024 Rhinovirus infection 06/20/2024 Septic shock 06/20/2024 Acute alteration in mental status 04/25/2024 History of COVID-19 04/25/2024 History of tobacco abuse 04/25/2024 Maxillary sinusitis, chronic 04/25/2024 Chronic obstructive pulmonary disease 05/20/2023 Assessment & Plan (03/01/2025 2:47 PM EDT): Lungs around baseline on PE today, continue current tx regimen, refill albuterol nebulizer solution Orders: albuterol (2.5 MG/3ML) 0.083% nebulizer solution; Take 3 mL (2.5 mg) by nebulization every 6 (six) hours if needed for wheezing Depression 05/20/2023 DM2 (diabetes mellitus, type 2) 05/20/2023 Essential hypertension 05/20/2023 Fibromyalgia 05/20/2023 Hyperlipidemia, group D 05/20/2023 Hypogammaglobulinemia 05/20/2023 Immunodeficiency disorder 02/05/2021 Multiple myeloma not having achieved remission 0 03/09/2020 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 - Prescribe lansoprazole 30 mg once daily since it worked better for her in the past, starting the day after the last dose of pantoprazole. Orders: lansoprazole (Prevacid) [address] capsule; Take 1 capsule (30 mg) by mouth Daily Do not crush or chew. 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 3 H/O abdominal hysterectomy 03/07/2019 0 07/08/2023 Disorder of nervous system d ue to type 2 diabetes mellitus 11/11/2017 07/08/2023 Allergic rhinitis 10/20/2017 07/08/2023 Polyneuropathy 10/05/2017 07/08/2023 Atherosclerosis of aorta 06/08/201704/2023 Aneurysm of infrarenal abdominal aorta 06/08/2017 07/08/2023 Chronic pain syndrome 05/01/20172022 Primary insomnia 04/03/2017 07/08/2023 Leukopenia 02/25/2017 07/08/2023 Cirrhosis of liver 10/17/2015 Thrombocytopenia 05/31/2014 07/08/2023 Sleep apnea 04/15/2006 07/08/2023 Encounters Date Type Department Care Team Description 03/30/2025 Results Follow-Up [facility] [address] [place] [address] Power Swain DO 03/29/2025 3:20 PM EDT Office Visit [facility] [address] [place] [address] Power Swain, Acute cystitis without hematuria (Primary Dx); Gastroesophageal reflux disease without esophagitis; Recurrent candidiasis of vagina 03/29/2025 Bamboo flowsheet [facility] [address] [place] [address] Power Swain DO 03/29/2025 Travel 03/28/2025 External Result Encounter [facility] External Department Unsolicited Fabiola Marinelli MD 03/28/2025 External Result Encounter [facility] External Department Unsolicited Fabiola Marinelli MD 03/28/2025 External Result Encounter [facility] External Department Unsolicited Fabiola Marinelli MD 03/23/2025 Patient Outreach [facility] [address] [place] [address] Sima Paul RN 03/16/2025 Abstract [facility] [address] [place] [address] Letty Newsome NP 03/15/2025 External Result Encounter [facility] External Department Unsolicited Fabiola Marinelli MD 03/14/2025 Results Follow-Up [facility] [address] [place] [id number] Olga Greer NP 03/14/2025 Telephone [facility] [address] [place] [address] Olga Greer NP 03/13/2025 11:50 AM EDT Office Visit [facility] [address] [place] [address] Olga Greer, DAIRY TESTER Acute cystitis with hematuria (Primary Dx); Dysuria 03/13/2025 Travel 03/09/2025 Patient Outreach [facility] [address] [place] [address] Sima Paul RN 03/07/2025 External Result Encounter [facility] External Department Unsolicited Fabiola Marinelli MD 03/07/2025 External Result Encounter [facility] External Department Unsolicited Fabiola Marinelli MD 03/02/2025 Abstract [facility] [address] [place] [address] Power Swain DO 03/01/2025 1:40 PM EDT Office Visit [facility] [address] [place] [address] Power Swain DO Medicare annual wellness visit, subsequent (Primary Dx); Chronic obstructive pulmonary disease, unspecified COPD type (CMS/HCC); Seasonal allergic rhinitis due to pollen; Acute recurrent maxillary sinusitis 03/01/2025 Bamboo flowsheet [facility] [address] [place] [address] Power Swain DO 03/01/2025 Travel 02/24/2025 Telephone [facility] [address] [place] [address] Yinka Thomson MD 02/16/2025 Refill [facility] [address] [place] [address] Power Swain DO Seasonal allergic rhinitis due to pollen 02/15/2025 External Result Encounter [facility] External Department Unsolicited Fabiola Marinelli MD 02/15/2025 External Result Encounter [facility] External Department Unsolicited Fabiola Marinelli MD 02/15/2025 Abstract [facility] [address] [place] [address] Yinka Thomson MD 02/13/2025 Patient Outreach [facility] [address] [place] [address] Sima Paul RN 02/06/2025 Abstract [facility] [address] [place] [address] Yinka Thomson MD 02/01/2025 Orders Only [facility] [address] [place] [address] Yinka Thomson MD Bronchitis (Primary Dx) 02/01/2025 Telephone [facility] [address] [place] [address] Negar Carlos MA 01/30/2025 External Result Encounter [facility] External Department Unsolicited Fabiola Marinelli MD 01/30/2025 External Result Encounter [facility] External Department Unsolicited Fabiola Marinelli MD 01/20/2025 Refill [facility] [address] [place] [address] Yinka Thomson MD Seasonal allergic rhinitis due to pollen 01/18/2025 External Result Encounter [facility] External Department Unsolicited Fabiola Marinelli MD 01/18/2025 External Result Encounter [facility] External Department Unsolicited Fabiola Marinelli MD 01/17/2025 2:40 PM EDT Office Visit [facility] [address] [place] [address] Power Swain DO COPD with acute exacerbation (CMS/HCC) (Primary Dx) 01/17/2025 Bamboo flowsheet [facility] [address] [place] [address] Power Swain DO 01/17/2025 Travel 01/10/2025 Patient Outreach [facility] [address] [place] [address] Sima Paul RN 01/03/2025 External Result Encounter [facility] External Department Unsolicited Fabiola Marinelli MD 01/03/2025 External Result Encounter [facility] External Department Unsolicited Fabiola Marinelli MD from Last 3 Months Immunizations Immunization Administration Dates Next Due Influenza, High Dose Seasona l, Preservative Free 10/18/2024 Influenza, injectable, quadr ivalent, preservative free 09/12/2019,10/14/2018 Influenza, seasonal, injectable 07/16/2015 Influenza, seasonal, intrade rmal, preservative free 10/05/2017 Pneumococcal Conjugate PCV 13 07/16/2015 Pneumococcal Conjugate PCV 20 05/21/2023(Deferre d: Patient Refused) Pneumococcal Polysaccharide PPSV23 10/05/2017 RSV, recombinant, protein sotomayor bunit RSVpreF, adjuvant reconstitu, 120mcg/0.5mL, PF (Arexvy) 10/18/2024 Family History Medical History Relation Name Comments Lung cancer Brother coral king 60 No Known Problems Daughter Heart disease Father madhuri king Hypertension Father madhuri king 74 Prostate cancer Father madhuri king Colon cancer Mother eleni king Heart disease Mother eleni king Hypertension Mother eleni ikng 83 Cancer Sibling Breast cancer Sister abhijit 49 Hypertension Son Relation Name Status Comments Brother coral king x3 Daughter Alive x2 Father madhuri king Mother eleni king Other Spouse Sibling Sister abhijit x3 Son Alive x2 Social History Tobacco Use Types Packs/Day Years Used Date Smoking Tobacco: Former Cigarettes Smokeless Tobacco: Former Tobacco Cessation:Counseling Given: Not Answered Alcohol Use Standard Drinks/Week Comments Never 0 [...] file Not on file Not on file Last Filed Vital Signs [...] Mass Index 33.3 03/29/2025 3:40 PM EDT Plan of Treatment Upcoming Encounters Date Type Department Care Team (Late st Contact Info) Description 05/26/2025 10:20 AM EDT Office Visit [facility] [address] [place] [address] Power Swain DO [address] [place] [address] Health Maintenance Due Date Last Done Comments CT Colonography 1957 FIT-DNA 1957 FIT 1957 FOBT 1957 Sigmoidoscopy 1957 Diabetes: Hemoglobin A1C 06/19/202512/20/2 025, 06/20/2024, 11/30/2023, Additional history exists Pneumococcal Vaccine: 65+ Years (3 of 3 - PPSV23, PCV20 or PCV21) 06/20/2025 10/05/2017, 07/16/2015 Postponed from 10/05/2022 (Patient Refused) Diabetes: Urine Protein Screening 08/26/2025 08/26/2024, 11/30/2023, 03/04/2021, Additional history exists Medicare Annual Wellness (AWV) 03/01/2026 03/01/2025, 11/30/2023, 12/01/2022, Additional history exists Diabetes: Retinopathy Screening 07/01/2026 07/01/2024, 05/06/2022, 04/30/2021, Additional history exists Mammogram 11/18/2026 08/18/2024, 10/02, 10/16/2022, Additional history exists Colonoscopy 09/15/2028 09/15/2018, 04/04, 05/01/2015 Colorectal Cancer Screening 09/15/2028 Influenza Vaccine Completed 10/18/2024, , 10/14/2018, Additional history exists Procedures Procedure Name Priority Date/Time Associated Diagnosis Comments POCT URINALYSIS DIPSTICK Routine 03/29/2025 3:48 PM EDT Acute cystitis without hematuria URINARY TRACT INFECTION (HTRX) Routine 03/29/2025 3:40 PM EDT Acute cystitis without hematuria PATHOLOGIST SLIDE REVIEW (MC) STAT 03/28/2025 8:53 AM EDT SCAN AND CBC STAT 03/28/2025 8:53 AM EDT COMPREHENSIVE METABOLIC PANEL STAT 03/28/2025 8:53 AM EDT IMMUNOGLOBULINS A/G/M, QN, SER Routine 03/15/2025 2:50 PM EDT URINARY TRACT INFECTION (HTRX) Routine 03/13/2025 12:23 PM EDT Dysuria URINALYSIS ANALYZER TEST Routine 03/13/2025 12:19 PM EDT Dysuria SCAN AND CBC Routine 03/07/2025 8:15 AM EDT COMPREHENSIVE METABOLIC PANEL STAT 03/07/2025 8:15 AM EDT DIFF AND CBC STAT 02/15/2025 11:05 AM EDT COMPREHENSIVE METABOLIC PANEL STAT 02/15/2025 11:05 AM EDT SCAN AND CBC Routine 01/30/2025 10:23 AM EDT FERRITIN STAT 01/30/2025 10:23 AM EDT IRON AND TOTAL IRON BINDING CAPACITY STAT 01/30/2025 10:23 AM EDT CREATININE STAT 01/30/2025 10:23 AM EDT SCAN AND CBC STAT 01/18/2025 2:50 PM EDT COMPREHENSIVE METABOLIC PANEL STAT 01/18/2025 2:50 PM EDT SCAN AND CBC Routine 01/03/2025 8:18 AM EST CREATININE STAT 01/03/2025 8:18 AM EST POCT GLYCOSYLATED HEMOGLOBIN (HGB A1C) Routine 12/20/2024 2:47 PM EST Type 2 diabetes mellitus with other specified complication, without long-term current use of insulin (CMS/HCC) MICROALBUMIN / CREATININE URINE RATIO Routine 08/26/2024 12:23 PM EDT Essential hypertension (CMS/HCC) Type 2 diabetes mellitus with other specified complication, unspecified whether superintendent container terminal insulin use (CMS/HCC) MM TOMOSYNTHESIS SCREENING BI 08/18/2024 3:19 PM EDT DIABETIC RETINOPATHY SCREENING - OU - BOTH EYES Routine 07/01/2024 9:34 PM EDT COLONOSCOPY Routine 09/15/2018 12:00 PM EST from Last 3 Months or Most Recently Relevant to Health Maintenance Results * (ABNORMAL) POCT urinalysis dipstick manually resulted (03/29/2025 3:48 PM EDT) Color, UA Yellow Clarity, UA Clear Glucose, UA Negative Negative - 1999(110) ++++ mg/dL Bilirubin, UA Negative Negative - 4(70) +++ mg/dL Ketones, UA Negative Negative - 160(16) ++++ mg/dL Spec Grav, UA 1.005 1 - 1.03 Blood, UA Negative Negative - 50 Michael/mcL pH, UA 7.0 5 - 9 Protein, UA Negative Negative - 1999(20) ++++ mg/dL Urobilinogen, UA 0.2 0.2 - 12 mg/dL Leukocytes, UA Trace Negative - 500+++ Mahamed/mcL Nitrite, UA Negative Negative - Positive Urine 03/29/2025 3:48 PM EDT Power Swain DO POINT OF CARE TEST ENTER/EDIT O RDERABLES Final Result * (ABNORMAL) URINARY TRACT INFECTION (HTRX) (03/29/2025 3:40 PM EDT) Only the most recent of2 resultswithin the time period is included. Pathologist [facility] CTX-M1 (15), M2 (2), M9 (9), M8-25 GROUPS 20.740(A) 23.000 - 32.546 ppm 03/30/2025 7:25 AM EDT [facility] CTX-M1 (15), M2 (2), M9 (9), M8-25 GROUPS Detected(A) 23.000 - 32.546 ppm 03/30/2025 7:25 AM EDT [facility] A1, A2, B2 21.828(A) 23.000 - 30.726 ppm 03/30/2025 7:25 AM EDT [facility] A1, A2, B2 Detected(A) 23.000 - 30.726 ppm 03/30/2025 7:25 AM EDT [facility], [facility] GROUPS 22.819(A) 23.000 - 31.647 ppm 03/30/2025 7:25 AM EDT [facility], [facility] GROUPS Detected(A) 23.000 - 31.647 ppm 03/30/2025 7:25 AM EDT [facility] [place] ACINETOBACTER BAUMANII 0.000 19.961 - 24.689 ppm 03/30/2025 7:25 AM EDT [facility] [place] ACINETOBACTER BAUMANII Not Detected 19.961 - 24.689 ppm 03/30/2025 7:25 AM EDT [facility] [place] CITROBACTER FREUNDII 0.000 23.000 - 31.881 ppm 03/30/2025 7:25 AM EDT [facility] [place] CITROBACTER FREUNDII Not Detected 23.000 - 31.881 ppm 03/30/2025 7:25 AM EDT [facility] [place] ENTEROBACTER AEROGENES, CLOACAE 0.000 23.000 - 31.535 ppm 03/30/2025 7:25 AM EDT [facility] [place] ENTEROBACTER AEROGENES, CLOACAE Not Detected 23.000 - 31.535 ppm 03/30/2025 7:25 AM EDT [facility] [place] ENTEROCOCCUS FAECALIS, FAECIUM 0.000 26.000 - 31.575 ppm 03/30/2025 7:25 AM EDT [facility] [place] ENTEROCOCCUS FAECALIS, FAECIUM Not Detected 26.000 - 31.575 ppm 03/30/2025 7:25 AM EDT [facility] [place] ESCHERICHIA COLI 0.000 23.000 - 28.500 ppm 03/30/2025 7:25 AM EDT [facility] [place] ESCHERICHIA COLI Not Detected 23.000 - 28.500 ppm 03/30/2025 7:25 AM EDT [facility] [place] KLEBSIELLA PNEUMONIAE, OXYTOCA 23.351(A) 23.000 - 30.500 ppm 03/30/2025 7:25 AM EDT [facility] [place] KLEBSIELLA PNEUMONIAE, OXYTOCA Detected(A) 23.000 - 30.500 ppm 03/30/2025 7:25 AM EDT [facility] [place] MORGANELLA MORGANII 0.000 19.961 - 24.689 ppm 03/30/2025 7:25 AM EDT [facility] [place] MORGANELLA MORGANII Not Detected 19.961 - 24.689 ppm 03/30/2025 7:25 AM EDT [facility] [place] PROTEUS MIRABILIS, VULGARIS 0.000 23.000 - 28.500 ppm 03/30/2025 7:25 AM EDT [facility] [place] PROTEUS MIRABILIS, VULGARIS Not Detected 23.000 - 28.500 ppm 03/30/2025 7:25 AM EDT [facility] [place] PSEUDOMONAS AERUGINOSA 0.000 23.000 - 28.500 ppm 03/30/2025 7:25 AM EDT [facility] [place] PSEUDOMONAS AERUGINOSA Not Detected 23.000 - 28.500 ppm 03/30/2025 7:25 AM EDT [facility] [place] STAPHYLOCOCCUS AUREUS 0.000 26.000 - 30.902 ppm 03/30/2025 7:25 AM EDT [facility] [place] STAPHYLOCOCCUS AUREUS Not Detected 26.000 - 30.902 ppm 03/30/2025 7:25 AM EDT [facility] [place] STREPTOCOCCUS AGALACTIAE (GROUP B STREP) 0.000 26.000 - 32.222 ppm 03/30/2025 7:25 AM EDT [facility] [place] STREPTOCOCCUS AGALACTIAE (GROUP B STREP) Not Detected 26.000 - 32.222 ppm 03/30/2025 7:25 AM EDT [facility] [place] CRIS ALBICANS, PARAPSILOSIS, TROPICALIS 0.000 19.961 - 30.770 ppm 03/30/2025 7:25 AM EDT [facility] [place] CRIS ALBICANS, PARAPSILOSIS, TROPICALIS Not Detected 19.961 - 30.770 ppm 03/30/2025 7:25 AM EDT [facility] [place] CRIS GLABRATA 0.000 23.000 - 32.138 ppm 03/30/2025 7:25 AM EDT [facility] [place] CRIS GLABRATA Not Detected 23.000 - 32.138 ppm 03/30/2025 7:25 AM EDT [facility] [place] CRIS KRUSEI 0.000 23.000 - 32.271 ppm 03/30/2025 7:25 AM EDT [facility] CRIS KRUSEI Not Detected 23.000 - 32.271 ppm 03/30/2025 7:25 AM EDT [facility] SERRATIA MARCESCENS 0.000 23.000 - 31.204 ppm 03/30/2025 7:25 AM EDT [facility] SERRATIA MARCESCENS Not Detected 23.000 - 31.204 ppm 03/30/2025 7:25 AM EDT [facility] STREPTOCOCCUS PYOGENES (GROUP A STREP) 0.000 19.961 - 24.689 ppm 03/30/2025 7:25 AM EDT [facility] STREPTOCOCCUS PYOGENES (GROUP A STREP) Not Detected 19.961 - 24.689 ppm 03/30/2025 7:25 AM EDT [facility] STAPHYLOCOCCUS EPIDERMIDIS, HAEMOLYTICUS, LUGDUNENSIS, SAPROPHYTICUS (URINA 0.000 19.961 - 24.689 ppm 03/30/2025 7:25 AM EDT [facility] STAPHYLOCOCCUS EPIDERMIDIS, HAEMOLYTICUS, LUGDUNENSIS, SAPROPHYTICUS (URINA Not Detected 19.961 - 24.689 ppm 03/30/2025 7:25 AM EDT [facility] STAPHYLOCOCCUS EPIDERMIDIS, HAEMOLYTICUS, LUGDUNENSIS, SAPROPHYTICUS (URINA 0.000 19.961 - 24.689 ppm 03/30/2025 7:25 AM EDT [facility] STAPHYLOCOCCUS EPIDERMIDIS, HAEMOLYTICUS, LUGDUNENSIS, SAPROPHYTICUS (URINA Not Detected 19.961 - 24.689 ppm 03/30/2025 7:25 AM EDT [facility] Urine 03/29/2025 3:40 PM EDT 03/30/2025 1:47 AM EDT us Power Swain DO LAB BLOOD ORDERABLES Final Resu lt [facility] [address] [place] [address] * (ABNORMAL) SCAN AND CBC (03/28/2025 8:53 AM EDT) Only the most recent of5 resultswithin the time period is included. WBC 2.1(L) 3.8 - 11.6 10*3/uL 03/28/2025 9:03 AM EDT [facility] UNCORRECTED WHITE BLOOD COUNT 2.1(L) 3.8 - 11.6 10*3/uL 03/28/2025 9:03 AM EDT [facility] RBC 3.55(L) 3.60 - 5.00 10*6/uL 03/28/2025 9:03 AM EDT [facility] HEMOGLOBIN 12.1 11.8 - 15.4 g/dL 03/28/2025 9:03 AM EDT [facility] HEMATOCRIT 35.4 34.0 - 46.4 % 03/28/2025 9:03 AM EDT [facility] MCV 99.9 80 - 100 fL 03/28/2025 9:03 AM EDT [facility] MCH 34.1 24.7 - 34.3 pg 03/28/2025 9:03 AM EDT [facility] MCHC 34.1 32.0 - 35.0 g/dL 03/28/2025 9:03 AM EDT [facility] RED CELL DISTRIBUTION WIDTH, RDW 16.1(H) 11.9 - 15.3 % 03/28/2025 9:03 AM EDT [facility] PLATELET COUNT 50(L) 150 - 450 10*3/uL 03/28/2025 9:03 AM EDT [facility] MEAN PLATELET VOLUME, MPV 7.7 6.3 - 10.7 fL 03/28/2025 9:03 AM EDT [facility] NEUTROPHILS, % 52.3 . % 03/28/2025 10:39 AM EDT [facility] LYMPHOCYTES, % 19.9 . % 03/28/2025 10:39 AM EDT [facility] MONOCYTE/MACROPHA GE, % 14.1 . % 03/28/2025 10:39 AM EDT [facility] EOSINOPHILS, % 13.0 . % 03/28/2025 10:39 AM EDT [facility] BASOPHILS, % 0.7 . % 03/28/2025 10:39 AM EDT [facility] NRBC 0.1 0 - 0.5 /100{WBC} 03/28/2025 10:39 AM EDT [facility] NEUTROPHILS 1.1(L) 1.8 - 7.7 10*3/uL 03/28/2025 10:39 AM EDT [facility] LYMPHOCYTES 0.4(L) 1.00 - 4.8 10*3/uL 03/28/2025 10:39 AM EDT [facility] MONOCYTES 0.3 0.0 - 0.8 10*3/uL 03/28/2025 10:39 AM EDT [facility] EOSINOPHILS 0.3 0.0 - 0.45 10*3/uL 03/28/2025 10:39 AM EDT [facility] BASOPHILS 0.0 0.0 - 0.2 10*3/uL 03/28/2025 10:39 AM EDT [facility] Blood (Blood) 03/28/2025 8:5 3 AM EDT 03/28/2025 8:57 AM EDT us Fabiola Marinelli MD LAB BLOOD ORDERABLES Final Resul t Performing Organization Address City/[facility]/ZIP Co de Phone Number [address] [address], [facility] [address] [place] [address] * PATHOLOGIST SLIDE REVIEW ([facility]) (03/28/2025 8:53 AM EDT) PATHOLOGIST SLIDE REVIEW Ordered Path Review 03/28/2025 12:36 PM EDT [facility] Other Topography unknown / Unknown 03/28/2025 8:53 AM EDT 03/28/2025 8:57 AM EDT us Fabiola Marinelli MD LAB BLOOD ORDERABLES Final Resul t [place] [id number], [facility] [address] [place] [address] * (ABNORMAL) Comprehensive metabolic panel (03/28/2025 8:53 AM EDT) Only the most recent of4 resultswithin the time period is included. Glucose 116(H) 70 - 100 mg/dL 03/28/2025 9:23 AM EDT [facility] Comment: Random Glucose Reference Range is dependent on time and content of last meal. Glucose of more than 200 mg/dL in a nonstressed, ambulatory subject supports the diagnosis of Diabetes Mellitus. ADA recommended reference range BUN 19 7 - 25 mg/dL 03/28/2025 9:23 AM EDT [facility] CREATININE 1.04 0.60 - 1.20 mg/dL 03/28/2025 9:23 AM EDT [facility] ESTIMATED GFR 58.908 mL/Min 03/[facility] S[facility] 139 136 - 145 mmol/L 03/28/2025 9:23 AM EDT [facility] Potassium, Bld 4.0 3.5 - 5.1 mmol/L 03/28/2025 9:23 AM EDT [facility] Chloride 104 98 - 107 mmol/L 03/28/2025 9:23 AM EDT [facility] Carbon Dioxide 29.7 21.0 - 31.0 mmol/L 03/28/2025 9:23 AM EDT [facility] Anion Gap 9.3 6.0 - 15.0 meq/L 03/28/2025 9:23 AM EDT [facility] Calcium 8.7 8.6 - 10.3 mg/dL 03/28/2025 9:23 AM EDT [facility] TOTAL PROTEIN 5.8(L) 6.4 - 8.9 g/dL 03/28/2025 9:23 AM EDT [facility] ALBUMIN LEVEL 3.6 3.5 - 5.7 g/dL 03/28/2025 9:23 AM EDT [facility] GLOBULIN 2.2 g/dL 03/28/2025 9:23 AM EDT [facility] ALBUMIN/GLOBULIN RATIO 1.6 03/28/2025 9:23 AM EDT [facility] BILIRUBIN,TOTAL 1.0 0.3 - 1.0 mg/dL 03/28/2025 9:23 AM EDT [facility] ASPARTATE AMINO TRANSFERASE 34 13 - 39 U/L 03/28/2025 9:23 AM EDT [facility] ALANINE AMINOTRANSFERASE 19 7 - 52 U/L 03/28/2025 9:23 AM EDT [facility] ALKALINE PHOSPHATASE 146(H) 34 - 104 U/L 03/28/2025 9:23 AM EDT [facility] CREATININE CLR CALC PHARMACY 52.87 03/28/2025 9:23 AM EDT [facility] Other Topography unknown / Unknown 03/28/2025 8:53 AM EDT 03/28/2025 8:57 AM EDT us Fabiola Marinelli MD LAB BLOOD ORDERABLES Final Resul t [facility] [address] [place] [address], [facility] [address] [place] [id number] * (ABNORMAL) IMMUNOGLOBULINS A/G/M, QN, SER (03/15/2025 2:50 PM EDT) IMMUNOGLOBULIN G 895 586 - 1,602 mg/dL 03/17/2025 8:36 AM EDT [facility] IMMUNOGLOBULIN A, SERUM <5(L) 87 - 352 mg/dL 03/17/2025 8:36 AM EDT [facility] Comment:Result confirmed on concentration. IMMUNOGLOBULIN M, SERUM <5(L) 26 - 217 mg/dL 03/17/2025 8:36 AM EDT [facility] Comment: Result confirmed on concentration. Performed at: [address] [id number] Environmental Service Aide: Lang Knight PhD, Phone: [phone] Other Topography unknown / Unknown 03/15/2025 2:50 PM EDT 03/15/2025 2:59 PM EDT us Fabiola Marinelli MD LAB BLOOD ORDERABLES Final Resul t [facility] [place] [place] [address], [place] * (ABNORMAL) URINALYSIS ANALYZER TEST (03/13/2025 12:19 PM EDT) LEUKOCYTES 3+ Negative NITRITES negative Negative UROBILINOGEN 0.2 0.2 - 1.0 PROTEIN trace Negative PH 6.0 5.0 - 6.0 BLOOD 3+ Negative SPECIFIC GRAVITY 1.015 1.001 - 1.035 KETONES negative Negative BILIRUBIN negative Negative GLUCOSE negative Negative Urine 03/13/2025 12:1 9 PM EDT Olga Greer NP POINT OF CARE TEST ENTER/ED IT ORDERABLES Final Result * (ABNORMAL) DIFF AND CBC (02/15/2025 11:05 AM EDT) WBC 1.9(L) 3.8 - 11.6 10*3/uL 02/15/2025 11:16 AM EDT [facility] UNCORRECTED WHITE BLOOD COUNT 1.9(L) 3.8 - 11.6 10*3/uL 02/15/2025 11:16 AM EDT [facility] RBC 3.59(L) 3.60 - 5.00 10*6/uL 02/15/2025 11:16 AM EDT [facility] HEMOGLOBIN 11.7(L) 11.8 - 15.4 g/dL 02/15/2025 11:16 AM EDT [facility] HEMATOCRIT 35.1 34.0 - 46.4 % 02/15/2025 11:16 AM EDT [facility] MCV 97.7 80 - 100 fL 02/15/2025 11:16 AM EDT [facility] MCH 32.5 24.7 - 34.3 pg 02/15/2025 11:16 AM EDT [facility] MCHC 33.3 32.0 - 35.0 g/dL 02/15/2025 11:16 AM EDT [facility] RED CELL DISTRIBUTION WIDTH, RDW 24.1(H) 11.9 - 15.3 % 02/15/2025 11:16 AM EDT [facility] PLATELET COUNT 45(L) 150 - 450 10*3/uL 02/15/2025 11:16 AM EDT [facility] MEAN PLATELET VOLUME, MPV 8.5 6.3 - 10.7 fL 02/15/2025 11:16 AM EDT [facility] SEGMENTED NEUTROPHILS 51 50 - 70 % 02/15/2025 12:00 PM EDT [facility] LYMPHOCYTES 24 18 - 42 % 02/15/2025 12:00 PM EDT [facility] REACTIVE LYMPHOCYTES 1 0 - 12 % 02/15/2025 12:00 PM EDT [facility] MONOCYTES 12(H) 2 - 11 % 02/15/2025 12:00 PM EDT [facility] EOSINOPHILS 12(H) 1 - 3 % 02/15/2025 12:00 PM EDT [facility] BASOPHILS 1 0 - 2 % 02/15/2025 12:00 PM EDT [facility] POIKILOCYTOSIS Slight 02/15/2025 12:00 PM EDT [facility] ANISOCYTOSIS Marked 02/15/2025 12:00 PM EDT [facility] MICROCYTOSIS Slight 02/15/2025 12:00 PM EDT [facility] TEAR DROP CELLS Slight 12:00 PM EDT [facility] OVALOCYTES Slight 02/15/2025 12:00 PM EDT [facility] PLATELET ESTIMATE Decreased Normal 025 12:00 PM EDT [facility] GIANT PLATELET TALLY 2 /100{WBC} 02/15/2025 12:00 PM EDT [facility] PLATELET MORPHOLOGY Normal Normal 02/15/2025 12:00 PM EDT [facility] Blood (Blood) 02/15/2025 11: 05 AM EDT 02/15/2025 11:05 AM EDT us Fabiola Marinelli MD LAB BLOOD ORDERABLES Final Resul t [facility] [place] [address], [facility] [address] [place] [address] * (ABNORMAL) Iron and TIBC (01/30/2025 10:23 AM EDT) IRON 94 50 - 212 ug/dL 01/30/2025 11:07 AM EDT [facility] TOTAL IRON BINDING CAPACITY 279 255 - 450 ug/dL 01/30/2025 11:07 AM EDT [facility] % IRON SATURATION 33.7 20 - 50 % 01/30/2025 11:07 AM EDT [facility] TRANSFERRIN 199(L) 203 - 362 mg/dL 01/30/2025 11:07 AM EDT [facility] Other Topography unknown / Unknown 01/30/2025 10:23 AM EDT 01/30/2025 10:27 AM EDT us Fabiola Marinelli MD LAB BLOOD ORDERABLES Final Resul t Performing Organization Address City/[facility]/ZIP Co de Phone Number [address] [address], [facility] [address] [place] [address] * Creatinine (01/30/2025 10:23 AM EDT) Only the most recent of2 resultswithin the time period is included. CREATININE 0.84 0.60 - 1.20 mg/dL 01/30/2025 11:07 AM EDT [facility] ESTIMATED GFR >60.0 mL/Min 01/30/2025 11:07 AM EDT [facility] CREATININE CLR [facility] PHARMACY 65.50 01/30/2025 11:07 AM EDT [facility] Other Topography unknown / Unknown 01/30/2025 10:23 AM EDT 01/30/2025 10:27 AM EDT us Fabiola Marinelli MD LAB BLOOD ORDERABLES Final Resul t [address] [address], [facility] [address] [place] [address] * (ABNORMAL) Ferritin (01/30/2025 10:23 AM EDT) FERRITIN 674.0(H) 11.0 - 306.8 ng/mL 01/30/2025 11:23 AM EDT [facility] Other Topography unknown / Unknown 01/30/2025 10:23 AM EDT 01/30/2025 10:27 AM EDT Fabiola Marinelli MD LAB BLOOD ORDERABLES Final Resul t Performing Organization Address City/[facility]/ZIP [place] [address], [facility] [address] [place] [address] * POCT glycosylated hemoglobin (Hb A1C) docked device (12/20/2024 2:47 PM EST) Hemoglobin A1C 5.6 Blood Venous blood specimen / Unknown 12/20/2024 2:47 PM EST Yinka Thomson MD POINT OF CARE TEST ENTER/EDIT ORDERABLES Final Result * Microalbumin / creatinine urine ratio (08/26/2024 12:23 PM EDT) MICROALBUMIN, URINE < 0.7 0.0 - 1.8 08/26/2024 1:19 PM EDT [facility] CREATININE, URINE (RANDOM) 11.00 mg/dL 08/26/2024 1:17 PM EDT [facility] Comment:No reference range e stablished MICROALBUMIN/CR EATININE RATIO Test not performed 0.0 - 30.0 08/26/2024 1:19 PM EDT [facility] Other Urine specimen obtained by clean catch procedure / Unknown 08/26/2024 12:23 PM EDT 08/26/2024 12:23 PM EDT us Fabiola Palumbo NP LAB URINE ORDERABLES Final Resul t [facility] [address] [place] [address], [facility] [address] [place] [address] * MM TOMOSYNTHESIS SCREENING BI (08/18/2024 3:19 PM EDT) Anatomical Region Laterality Modality Other 08/18/2024 3:19 PM EDT Narrative 08/18/2024 3:20 [place] [address] Mammography Report Signed Patient: MOJGAN SNIDER MR#: [id number] : 1955 Acct:[id number] Age/Sex: 68 / F ADM Date: 08/18/24 Loc: MAMMO Attending Dr: YINKA THOMSON Ordering Physician: YINKA THOMSON Results: Date of Service: 08/18/24 Follow Up: Procedure(s): MM tomosynthesis screening BI Accession Number(s): [id number] cc: YINKA THOMSON Patient Name: MOJGAN SNIDRE MR#: [id number] : 1955 Exam Date: 08/18/2024 Ordering Doctor: DR YINKA THOMSON M.D. RADIOLOGY REPORT PROCEDURE: MM TOMOSYNTHESIS SCREENING BI COMPARISON: MG MAMM SCREEN BRENDA W CAD, 03/23/2019. MG MAMM SCREEN 3D BRENDA CAD, 10/16/2022. INDICATIONS: Screening Calculator Name NCI Breast Cancer Risk Assessment Tool 5 Year Breast Cancer Risk 5.10% Lifetime Breast Cancer Risk 17.40% Personal Breast Cancer No Personal Ovarian Cancer No Treatments None Family Cancers Sister with breast cancer at age 52; Mother with colon cancer at age 78; Father with prostate cancer at age 76; Brother with lung cancer at age 64. LOCATION: [facility] BREAST COMPOSITION: There are scattered areas of fibroglandular density. FINDINGS: DIAGNOSTIC CATEGORY 2--BENIGN FINDING. NO CHANGE FROM COMPARISON. Scattered benign-appearing calcifications are present. RIGHT BREAST: No significant suspicious finding. LEFT BREAST: No significant suspicious finding. RECOMMENDATIONS: ROUTINE MAMMOGRAM AND CLINICAL EVALUATION IN 12 MONTHS. PLEASE NOTE: A NORMAL MAMMOGRAM DOES NOT EXCLUDE THE POSSIBILITY OF BREAST CANCER. A CLINICALLY SUSPICIOUS PALPABLE LUMP SHOULD BE BIOPSIED. Dictated by: Douglas Lozano MD on 08/18/2024 at 15:11 Approved by: Douglas Lozano MD on 08/18/2024 at 15:19 Dictated By: Douglas Lozano M.D. Signed By: 08/18/24 1520 DD/ 1519 TD/TT: Gearman: Procedure Note Radiology, Radiologist, MD - 08/18/2024 [place] [address] Mammography Report Signed Patient: MOJGAN SNIDER SMR#: [id number] : 1955cct:[id number] Age/Sex: 68 / FADM Date: 08/18/24 Loc: MAMMO Attending Dr: YINKA THOMSON Ordering Physician: YINKA THOMSONResults: Date of Service: 08/18/24Follow Up: Procedure(s): MM tomosynthesis screening BI Accession Number(s): [id number] cc: YINKA THOMSON Patient Name: MOJGAN SNIDER MR#: [id number] : 1955 Exam Date: 08/18/2024 Ordering Doctor: DR YINKA THOMSON M.D. RADIOLOGY REPORT PROCEDURE: MM TOMOSYNTHESIS SCREENING BI COMPARISON: MG MAMM SCREEN BRENDA W CAD, 03/23/2019. MG MAMM SCREEN 3DBIL CAD, 10/16/2022. INDICATIONS: Screening Calculator Name NCI Breast Cancer Risk Assessment Tool 5 Year Breast Cancer Risk 5.10% Lifetime Breast Cancer Risk 17.40% Personal Breast Cancer No Personal Ovarian Cancer No Treatments None Family Cancers Sister with breast cancer at age 52; Mother with colon cancer at age 78; Father with prostate cancer at age 76; Brother with lung cancer at age 64. LOCATION: [facility] BREAST COMPOSITION: There are scattered areas of fibroglandulardensity. FINDINGS: DIAGNOSTIC CATEGORY 2--BENIGN FINDING. NO CHANGE FROM COMPARISON.Scattered benign-appearing calcifications are present. RIGHT BREAST: No significant suspicious finding. LEFT BREAST: No significant suspicious finding. RECOMMENDATIONS: ROUTINE MAMMOGRAM AND CLINICAL EVALUATION IN 12 MONTHS. PLEASE NOTE: A NORMAL MAMMOGRAM DOES NOT EXCLUDE THE POSSIBILITY OFBREAST CANCER. A CLINICALLY SUSPICIOUS PALPABLE LUMP SHOULD BE BIOPSIED. Dictated by: Douglas Lozano MD on 08/18/2024 at 15:11 Approved by: Douglas Lozano MD on 08/18/2024 at 15:19 Dictated By: Douglas Lozano M.D. Signed By:08/18/24 1520 DD/ 1519 TD/TT: Gearman: us Yinka Thomson MD [facility] Final Result * Diabetic Retinopathy Screening - OU - Both Eyes (07/01/2024 9:34 PM EDT) Anatomical Region Laterality Modality Head Other us Fabiola Palumbo NP OPHTH PHOTOGRAPHY Final Result * Colonoscopy (09/15/2018 12:00 PM EST) Anatomical Region Laterality Modality Endoscopy 09/15/2018 12:0 0 PM EST Narrative 09/15/2018 12:00 PM EST PERFORMED AT [facility] LOCATION:[id number] Abnormal Procedure Note CONVERSION, GENERIC - 03/18/2023 PERFORMED AT [facility] LOCATION:[id number] Abnormal Yinka Thomson MD ENDOSCOPY PROCEDURE ORDERABLES Final Result from Last 3 Months or Most Recently Relevant to Health Maintenance [place] [address] MEDICARE MEDICAID [place] Advance Directives * Full Code (Latest Code Status on File) Date Activated Date Inactivated Comments 03/01/2025 2:43 PM Care Teams Inspector Packer Glass Container Relationship Specialty Start Date End Date Yinka Thomson MD [address] [place] [address] PCP - ACO Reach 03/26/23 Yinka Thomson MD [address] [place] [address] PCP - General Family Medicine 05/19/23 Letty Newsome DAIRY TESTER [address] [place] [address] Nurse Practitioner Pulmonary Disease 05/19/23 Sima Paul, LES Registered Nurse Family Medicine 08/24/23
--- OUTSIDE RECORDS SUMMARY | 2025-04-02 13:24 | XMS_ITS | Encounter Summary ---
Author Organization [facility] Address [address] [place] [address] Care Team Providers Care Performance Management Consultant Name Role Phone Vitaliy Thomson MD Unavailable [phone] Vitaliy Thomson MD Primary Care Provider [phone] Letty Newsome NP Unavailable [phone] Sima Paul RN Unavailable [phone] Encounter Details Date Type Department Care Team (Late st Contact Info) Description 03/23/2025 Patient Outreach [facility] [address] [place] [phone] Sima Paul, RN Social History Tobacco Use Types Packs/Day Years [...] on file documented as of this encounter Progress Notes * Sima Paul RN - 03/23/2025 10:05 AM EDT Pt calls for refill need of her Ozempic. Medication verified BOOM 03/01/25 NOV 05/26/25 Refill sent documented in this encounter Plan of Treatment Upcoming Encounters Date Type Department Care Team (Late st Contact Info) Description 05/26/2025 10:20 AM EDT Office Visit [facility] [address] [place] [phone] Power Swain DO [address] [place] [address] documented as of this encounter Visit Diagnoses Diagnosis Type 2 diabetes mellitus with other specified complication, without long-term current use of insulin- Primary Class 1 obesity due to excess calories with serious comorbidity and body mass index (BMI) of 33.0 to 33.9 in adult documented in this encounter Additional Health Concerns Assessment Noted Time PHQ-9 Depression Total Score: 0 11/30/19 24 9:00 AM EST documented as of this encounter Care Teams Performance Management Consultant Relationship Specialty Start Date End Date Vitaliy Thomson MD [address] [place] [address] PCP - ACO Reach 03/26/23 Vitaliy Thomson MD [address] [place] [address] PCP - General Family Medicine 05/19/23 Letty Newsome NP [address] [place] [address] Nurse Practitioner Pulmonary Disease 05/19/23 Sima Paul, RN Registered Nurse Family Medicine 08/24/23 documented as of this encounter
--- OUTSIDE RECORDS SUMMARY | 2025-04-02 13:25 | XMS_ITS | Encounter Summary ---
Author Organization [facility] Address [address] [facility] [place] [address] Care Team Providers Care Trade Manager Name Role Phone Vitaliy Thomson MD Unavailable [phone] Vitaliy Thomson MD Primary Care Provider [phone] Fabiola Palumbo NP Unavailable Letty Newsome NP Unavailable [phone] Sima Paul RN Unavailable [phone] Encounter Details Date Type Department Care Team (Late st Contact Info) Description 07/01/2024 Orders Only [facility] [address] [place] [address] Fabiola Palumbo NP [address] [place] [address] Social History Tobacco Use Types Packs/Day [...] Date Recorded Patient Health Questionnaire-2 Score 0 03/31/2024 Comments No Sex and Gender Information Value [...] 05/26/2025 10:20 AM EDT Office Visit [facility] [address] [place] [address] Power Swain DO [address] [place] [address] documented as of this encounter Procedures Procedure Name Priority Date/Time Associated Diagnosis Comments DIABETIC RETINOPATHY SCREENING - OU - BOTH EYES Routine 07/01/2024 9:34 PM EDT documented in this encounter Results * Diabetic Retinopathy Screening - OU - Both Eyes (07/01/2024 9:34 PM EDT) Anatomical Region Laterality Modality Head Other Fabiola Palumbo CREDIT PORTFOLIO MANAGER OPHTH PHOTOGRAPHY Final Result documented in this encounter Visit Diagnoses Not on filedocumented in this encounter Additional Health Concerns Assessment Noted Time PHQ-9 Depression Total Score: 0 11/30/19 9:00 AM EST documented as of this encounter Care Teams Trade Manager Relationship Specialty Start Date End Date Vitaliy Thomson MD [address] [place] [address] PCP - ACO Reach 03/26/23 Vitaliy Thomson MD [address] [place] [address] PCP - General Family Medicine 05/19/23 Fabiola Palumbo NP [address] [place] [address] Nurse Practitioner Family Medicine 05/19/23 01/19/25 Letty Newsome, CREDIT PORTFOLIO MANAGER [address] [place] [address] Nurse Practitioner Pulmonary Disease 05/19/23 Sima Paul, RN Registered Nurse Family Medicine 08/24/23 documented as of this encounter
--- OUTSIDE RECORDS SUMMARY | 2025-04-02 13:25 | XMS_ITS | Encounter Summary ---
Author Organization [facility] Address [address] [facility] [place] [address] Care Team Providers Care Mortgage Loan Interviewer Name Role Phone Vitaliy Thomson MD Unavailable [phone] Vitaliy Thomson MD Primary Care Provider [phone] Fabiola Palumbo NP Unavailable Letty Newsome NP Unavailable [phone] Sima Paul RN Unavailable [phone] Encounter Details Date Type Department Care Team (Late st Contact Info) Description 07/01/2024 Abstract [facility] [address] [place] [phone] Fabiola Palumbo NP [address] [place] [address] Social History Tobacco Use Types [...] Visit [facility] [address] [place] [address] Power Swain DO [address] [place] [address] documented as of this encounter Visit Diagnoses Not on filedocumented in this encounter Additional Health Concerns Assessment Noted Time PHQ-9 Depression Total Score: 0 11/30/19 24 9:00 AM EST documented as of this encounter Care Teams Mortgage Loan Interviewer Relationship Specialty Start Date End Date Vitaliy Thomson MD [address] [place] [address] PCP - ACO Reach 03/26/23 Vitaliy Thomson MD [address] [place] [address] PCP - General Family Medicine 05/19/23 Fabiola Palumbo NP [address] [place] [address] Nurse Practitioner Family Medicine 05/19/23 01/19/25 Letty Newsome NP [address] [place] [address] Nurse Practitioner Pulmonary Disease 05/19/23 Sima Paul, LES Registered Nurse Family Medicine 08/24/23 documented as of this encounter
--- OUTSIDE RECORDS SUMMARY | 2025-04-02 13:25 | XMS_ITS | Encounter Summary ---
Author Organization [facility] Address [address] [facility] [place] [address] Care Team Providers Care Tool Filer Hand Name Role Phone Vitaliy Thomson MD Unavailable [phone] Vitaliy Thomson MD Primary Care Provider [phone] Fabiola Palumbo NP Unavailable Letty Newsome AUDIOVISUAL LEAD TECHNICIAN Unavailable [phone] Sima Paul RN Unavailable [phone] Encounter Details Date Type Department Care Team (Late st Contact Info) Description 07/01/2024 Abstract [facility] [address] [place] [phone] Vitaliy Thomson MD [address] [place] [address] Social History Tobacco Use Types [...] EDT Office Visit [facility] [address] [place] [address] Power Swain DO [address] [place] [address] documented as of this encounter Visit Diagnoses Not on filedocumented in this encounter Additional Health Concerns Assessment Noted Time PHQ-9 Depression Total Score: 0 11/30/19 24 9:00 AM EST documented as of this encounter Care Teams Tool Filer Hand Relationship Specialty Start Date End Date Vitaliy Thomson MD [address] [place] [address] PCP - ACO Reach 03/26/23 Vitaliy Thomson MD [address] [place] [address] PCP - General Family Medicine 05/19/23 Fabiola Palumbo NP [address] [place] [address] Nurse Practitioner Family Medicine 05/19/23 01/19/25 Letty Newsome NP [address] [place] [address] Nurse Practitioner Pulmonary Disease 05/19/23 Sima Pual, LES Registered Nurse Family Medicine 08/24/23 documented as of this encounter
--- OUTSIDE RECORDS SUMMARY | 2025-04-02 13:25 | XMS_ITS | Encounter Summary ---
Author Organization [facility] Address [address] [place] [address] Care Team Providers Care Stage Set Designer Name Role Phone Unavailable Primary Care Provider Unavailabl e Encounter Details Date Type Department Care Team (Late st Contact Info) Description 07/19/2018 Telephone [facility] Case Management [address] [place] [address] Sariah Woodward RN Social History Tobacco Use Types Packs/Day Years Used Date Smoking Tobacco: Never Assessed Comments Unknown Sex and Gender Information Value Date Recorded Sex Assigned at Not on file Legal Sex Female 1:13 PM EST Gender Identity Not on file Sexual Orientation Not on file documented as of this encounter Plan of Treatment Not on file documented as of this encounter Visit Diagnoses Not on filedocumented in this encounter
--- OUTSIDE RECORDS SUMMARY | 2025-04-02 13:25 | XMS_ITS | Encounter Summary ---
Author Organization [facility] Address [address] [facility] [place] [address] Care Team Providers Care Western Philosophy Professor Name Role Phone Vitaliy Thomson MD Unavailable [phone] Vitaliy Thomson MD Primary Care Provider [phone] Fabiola Palumbo NP Unavailable Letty Newsome AIR PRESS OPERATOR Unavailable [phone] Sima Paul RN Unavailable [phone] Encounter Details Date Type Department Care Team (Late st Contact Info) Description 04/11/2024 Abstract [facility] [address] [place] [phone] Vitaliy Thomson MD [address] [place] [address] Social History Tobacco Use Types [...] SEP [address] [place] [address] Power Swain DO [address] [place] [address] documented as of this encounter Visit Diagnoses Not on filedocumented in this encounter Additional Health Concerns Assessment Noted Time PHQ-9 Depression Total Score: 0 11/30/19 24 9:00 AM EST documented as of this encounter Care Teams Western Philosophy Professor Relationship Specialty Start Date End Date Vitaliy Thomson MD [address] [place] [address] PCP - ACO Reach 03/26/23 Vitaliy Thomson MD [address] [place] [address] PCP - General Family Medicine 05/19/23 Fabiola Palumbo NP [address] [place] [address] Nurse Practitioner Family Medicine 05/19/23 01/19/25 Letty Newsome NP [address] [place] [address] Nurse Practitioner Pulmonary Disease 05/19/23 Sima Paul, LES Registered Nurse Family Medicine 08/24/23 documented as of this encounter
--- OUTSIDE RECORDS SUMMARY | 2025-04-02 13:25 | XMS_ITS | Encounter Summary ---
Author Organization [facility] Address [address] [place] [address] Care Team Providers Care Slps Name Role Phone Vitaliy Thomson MD Unavailable [phone] Vitaliy Thomson MD Primary Care Provider [phone] Fabiola Palumbo NP Unavailable Letty Newsome TERRY CLOTH CUTTER HAND Unavailable [phone] Sima Paul RN Unavailable [phone] Encounter Details Date Type Department Care Team (Late st Contact Info) Description 01/21/2024 External Result Encounter [facility] External Department Unsolicited Fabiola Marinelli MD [address] [place] [address] Social History Tobacco Use Types Packs/Day Years [...] Office Visit [facility] [address] [place] [address] Power Swain, DO [address] [place] [address] documented as of this encounter Procedures Procedure Name Priority Date/Time Associated Diagnosis Comments XR CHEST 2 VIEWS 01/21/2024 2:46 PM EDT documented in this encounter Results * XR chest 2 views (01/21/2024 2:46 PM EDT) Anatomical Region Laterality Modality Chest Radiographic Shirley ging 01/21/2024 2:46 PM EDT Impressions 01/21/2024 2:49 PM EDT NO ACUTE CARDIOPULMONARY ABNORMALITY. Impression dictated by: Tracey Bah M.D.01/21/2024 2:47 PM Dictation Location: [place] [address] Transcribed By: [facility] 01/21/24 1447 Dictated By: Tracey Bah MD 01/21/24 1446 Signed By: <Electronically signed by MD Tracey Bah in OV> 01/21/24 1447 Narrative 01/21/2024 2:49 PM EDT [facility] Main [address] [address] XRay Report Signed Patient: Mojgan Snider MR#: [id number] : 1955 Acct:[id number] Age/Sex: 68 / F ADM Date: 01/21/24 Loc: XT Room: Type: [facility] Attending Dr: Fabiola Marinelli MD Copies to: Fabiola Marinelli MD Ordering Provider: Fabiola Marinelli MD Date of Service: 01/21/24 XR/XR chest 2V*: D84.9 - Immunodeficiency, unspecified PA AND LATERAL CHEST: CLINICAL HISTORY: Productive cough and shortness of breath. History of multiple myeloma. COMPARISON: 12/31/2023 A right-sided pacemaker is again visualized. There is no focal parenchymal consolidation, effusion or pneumothorax. The cardiac, hilar and mediastinal silhouettes are within normal limits. There is no vascular congestion. Osteopenia is seen. There is slight dextroscoliotic curvature and endplate spurring. XR/XR chest 2V* Procedure Note Radiology, Radiologist, - 01/21/2024 [facility] Main [place] [address] [place] [address] XRay Report Signed Patient: Mojgan Snider SMR#: [id number] : 7Acct:[id number] Age/Sex: 68 / FADM Date: 01/21/24 Loc: Room:Type: [facility] Attending Dr: Fabiola Marinelli MD Copies to: Fabiola Marinelli MD Ordering Provider: Fabiola Marinelli MD Date of Service: 01/21/24 XR/XR chest 2V*: D84.9 - Immunodeficiency,unspecified PA AND LATERAL CHEST: CLINICAL HISTORY: Productive cough and shortness of breath. History ofmultiple myeloma. COMPARISON: 12/31/2023 A right-sided pacemaker is again visualized. There is no focal parenchymalconsolidation, effusion or pneumothorax. The cardiac, hilar and mediastinal silhouettes arewithin normal limits. There is no vascular congestion. Osteopenia is seen. There is slightdextroscoliotic curvature and endplate spurring. XR/XR chest 2V* IMPRESSION: NO ACUTE CARDIOPULMONARY ABNORMALITY. Impression dictated by: Tracey Bah M.D.01/21/2024 2:47 PM Dictation Location: [place] [address] Transcribed By: [facility] 01/21/24 1447 Dictated By: Tracey Bah MD 01/21/24 1446 Signed By: <Electronically signed by MD Tracey Bah in OV> 01/21/24 1447 Fabiola Marinelli MD IMG XR PROCEDURES Final Result documented in this encounter Visit Diagnoses Not on filedocumented in this encounter Additional Health Concerns Assessment Noted Time PHQ-9 Depression Total Score: 0 11/30/19 24 9:00 AM EST documented as of this encounter Care Teams Slps Relationship Specialty Start Date End Date Vitaliy Thomson MD [address] [place] [address] PCP - ACO Reach 03/26/23 Vitaliy Thomson MD [address] [place] [address] PCP - General Family Medicine 05/19/23 Fabiola Palumbo NP [address] [place] [address] Nurse Practitioner Family Medicine 05/19/23 01/19/25 Letty Newsome NP [address] [place] [address] Nurse Practitioner Pulmonary Disease 05/19/23 Sima Paul, RN Registered Nurse Family Medicine 08/24/23 documented as of this encounter
--- OUTSIDE RECORDS SUMMARY | 2025-04-02 13:25 | XMS_ITS ---
Author Organization [facility] Address [address] [place] [address] Phone Care Team Providers Care Booster Operator Name Role Phone Supa Lindquist MD PhD Unavailable [phone] Jessica Grove RN Unavailable Unavailable Fabiola Marinelli MD Primary Care Provider [phone] Lisette Perkins SUPERVISOR TURKEY FARM-MANAGER CUSTOMER SERVICE Unavailable [phone] Theresa Romano MD PhD Unavailable [phone] Negro Epps MD PhD Unavailable [phone] Active Problems Problem Noted Date Diagnosed Date Multiple myeloma not having achieved remission ( Multi) 10/20/2023 Pancytopenia 08/14/2023 Assessment & Plan (08/17/2023 7:42 AM EDT): Due to disease and chemotherapy Transfuse for Hgb < 7 g/dL and platelets < 10 k/uL or bleeding Assessment & Plan (08/14/2023 11:02 AM EDT): :: Due to disease and chemotherapy - Transfuse for Hgb < 7 g/dL and platelets < 10 k/uL or bleeding Hypertension 08/05/2023 Hyperlipidemia 08/05/2023 Type 2 diabetes mellitus 08/05/2023 Peripheral neuropathy 08/05/2023 Multiple myeloma 08/03/2023 Assessment & Plan (09/28/2023 6:52 PM EST): Referral from Dr. Marinelli at [facility]. MGUS since 2005 Followed at [facility] by Dr. Kumari, and then Dr. Cummings. 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 05/2023 Bmbx1q+, 4p-, 13q/-13, 14q- and 16q- Observation 2016->2019 Treatment 2019 Palliative XRT both hips 800 cGy 04/10/2020 Velcade dex Randa 07/31/2021 Radiation to soff tissue area of hip 3000 cGray 08/30/2021 Randa Rev 12/2021 Not a candidate for transplant (pancytopenia/liver cirrhosis) 12/2021 Randa Pomalidomide ->marrow suppression 07/2022 carfilzomib cyclophosphamide -> marrow suppression 05/24 Bmbx small percentage of plasma cells; hypocellular. Since the marrow was obtained in what was possibly radiation field this may not be entirely digital sales representative. Also clonal evolution in the marrow with the most recent marrow showing additional cytogenetic abnormalities. 07/23/23 Restaging labs: free lambda light chain 35.95 mg/dL (up from 5.65 mg/dL in December 2022) and free-lambda M-spike of 0.1 g/dL Teclistamab ramp-up (08/04-08/06-08/09/23): complicated grade-I CRS (fevers) and ICANS (suzanna ICE score 8/10) C2D1 teclistamab weekly (08/17/23, 08/25/23, 09/01/23, 09/08/23). Changed threshold notification for plt <35. 09/08/23 K/L ratio 0.01; IgG 338. SPEP pending. C3D1 teclisitimab weekly beginning 09/15/23. Held 09/15, 09/22, 09/29 due to Covid + on 09/12/23. IgG level <400. 09/22/23 First dose IVIG. Chest tightness during infusion; resolved with rescue meds. Continue prn level <400. Assessment & Plan (08/17/2023 7:41 AM EDT): Currently in relapse - Workup and treatment as above - No current s/s of CRS or ICANS today (08/17/23) - Ferritin, CRP, fibrinogen from today (08/17/23) will take many hours to result -- will not make patient wait, as these have been fine - C2 teclistamab (D1: 08/17/23), planned - Will be due for myeloma markers around 08/17 -- pending today Assessment & Plan (08/14/2023 11:20 AM EDT): :: Currently in relapse - Workup and treatment as above - No current s/s of CRS or ICANS today (08/14/23) - Ferritin, CRP, fibrinogen from today (08/14/23) will take many hours to result -- will not make patient wait, as these have been fine - C2 teclistamab (D1: 08/17/23), planned - Will be due for myeloma markers around 08/17 -- not in Treatment Plan, so I will enter these outside Depression 05/20/2023 Fibromyalgia 05/20/2023 Hypogammaglobulinemia (Multi) 05/20/2023 Immunodeficiency disorder (Multi) 02/05/2021 Assessment & Plan (02/14/2024 6:23 PM EDT): Infection prophylaxis VZV: Acyclovir 400 mg PO BID PJP: Trimethoprim-sulfamethoxazole 800-160 mg PO 3x weekly Hypogammaglobulinemia IVIG given 09/22/23, 10/29/23 ([facility]) 12/08/23 01/12/24 02/12/24. Cont monthly. Assessment & Plan (01/28/2024 12:26 PM EDT): Infection prophylaxis VZV: Acyclovir 400 mg PO BID PJP: Trimethoprim-sulfamethoxazole 800-160 mg PO 3x weekly Hypogammaglobulinemia IVIG given 09/22/23, 10/29/23 ([facility]) 12/08/23 and 01/12/24. Cont monthly. Assessment & Plan (01/14/2024 10:27 AM EDT): Infection prophylaxis VZV: Acyclovir 400 mg PO BID PJP: Trimethoprim-sulfamethoxazole 800-160 mg PO 3x weekly Hypogammaglobulinemia IVIG given 09/22/23, 10/29/23 ([facility]) and 12/08/23. Plan next today 01/12/24. Assessment & Plan (01/03/2024 11:33 AM EST): Infection prophylaxis VZV: Acyclovir 400 mg PO BID PJP: Trimethoprim-sulfamethoxazole 800-160 mg PO 3x weekly Hypogammaglobulinemia IVIG given 09/22/23, 10/29/23 ([facility]) and 12/08/23. Plan next dose 01/05/24. 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) (Multi) 07/11/2019 Primary localized osteoarthrosis of ankle and fo ot 06/01/2019 Chronic obstructive pulmonary disease (Multi) Smoldering myeloma 04/19/2019 Thoracic aortic aneurysm without rupture 019 GERD (gastroesophageal reflux disease) 8 Morbid obesity (Multi) 11/11/2017 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 Immune Globulin (IVIG) (one dose per interval)* Plan Start Date:09/22/2023 Plan Provider:MATT Mendosa Linked Problems Multiple myeloma, remission status unspecified (Multi) Treatment Medications No medications scheduled. Teclistamab (Weekly), 28 Day Cycles* Plan Start Date:03/22/2024 Plan Provider:Supa Lindquist MD PhD Linked Problems Multiple myeloma not having achieved remission (Multi) Treatment Medications Current Day (Day 1 , Cycle 10 - Planned for 09/27/2024) Next Day (Day 21, Cycle 10 - Planned for 10/18/2024) teclistamab-cqyv (Tecvayli) teclistamab- cqyv (Tecvayli) subcutaneous solution 121.5 mg teclistamab-cqyv (Tecvayli) subcutaneous solution 121.5 mg Venous Access Orders* Plan Start Date:08/14/2023 Plan Provider:Supa Lindquist MD PhD Linked Problems Multiple myeloma, remission status unspecified (Multi) Treatment Medications No medications scheduled. Past Treatment and Therapy Plans Oncology Treatment Plan Name Start Date Discontinue Date Treatment Medications Discontinue Reason Plan Provider Cycles Teclistamab (Weekly), 28 Day Cycles 03/15/2024 teclistamab-cq yv (Tecvayli) Stable Disease Supa Lindquist MD PhD 4 of 13 cycles started Teclistamab (Weekly), 28 Day Cycles 3 11/18/2023 teclistamab-cq yv (Tecvayli) Change in Level of Care Supa Lindquist MD PhD 2 of 3 cycles started Resolved Problems Problem Noted Date Diagnosed Date Resolved Date Immunosuppressed status 08/14/202311/03 Assessment & Plan (11/18/2023 12:39 PM EST): Infection prophylaxis VZV: Continue acyclovir 400 mg PO BID PJP: Continue trimethoprim-sulfamethoxazole 800-160 mg PO 3x weekly Hypogammaglobulinemia IVIG given 09/22/23 and 10/29/23 ([facility]) Assessment & Plan (08/17/2023 7:42 AM EDT): - VZV: Continue acyclovir 400 mg PO BID - PJP: Continue trimethoprim-sulfamethoxazole 800-160 mg PO 3x weekly Assessment & Plan (08/14/2023 10:20 AM EDT): - VZV: Continue acyclovir 400 mg PO BID - PJP: Continue trimethoprim-sulfamethoxazole 800-160 mg PO 3x weekly Multiple myeloma, remission status unspecified (Multi) 08/04/2023 08/05/2023 Obesity, Class III, BMI 40-4 9.9 (morbid obesity) 04/20/2019 11/18/2023 Atypical chest pain 04/19/2019 11/18/19 24 Vitamin D deficiency 04/15/2006 024
--- OUTSIDE RECORDS SUMMARY | 2025-04-02 13:25 | XMS_ITS | Encounter Summary ---
Author Organization [facility] Address [address] [facility] [place] [address] Care Team Providers Care Distribution Sales Manager Name Role Phone Vitaliy Thomson MD Unavailable [phone] Vitaliy Thomson MD Primary Care Provider [phone] Fabiola Palumbo NP Unavailable Letty Newsome COMPUTER SYSTEMS ARCHITECT Unavailable [phone] Sima Paul RN Unavailable [phone] Encounter Details Date Type Department Care Team (Late st Contact Info) Description 07/01/2024 Abstract [facility] [address] [place] [address] Vitaliy Thomson MD [address] [place] [address] Social History Tobacco Use Types [...] SEP [address] [place] [address] Power Swain DO [address] [place] [address] documented as of this encounter Visit Diagnoses Not on filedocumented in this encounter Additional Health Concerns Assessment Noted Time PHQ-9 Depression Total Score: 0 11/30/19 24 9:00 AM EST documented as of this encounter Care Teams Distribution Sales Manager Relationship Specialty Start Date End Date Vitaliy Thomson MD [address] [place] [address] PCP - ACO Reach 03/26/23 Vitaliy Thomson MD [address] [place] [address] PCP - General Family Medicine 05/19/23 Fabiola Palumbo NP [address] [place] [address] Nurse Practitioner Family Medicine 05/19/23 01/19/25 Letty Newsome NP [address] [place] [address] Nurse Practitioner Pulmonary Disease 05/19/23 Sima Paul, LES Registered Nurse Family Medicine 08/24/23 documented as of this encounter
--- OUTSIDE RECORDS SUMMARY | 2025-04-02 13:25 | XMS_ITS | Encounter Summary ---
Author Organization [facility] Address [address] [place] [address] Phone Care Team Providers Care Visually Impaired Teacher Name Role Phone Supa Lindquist MD PhD Unavailable [phone] Jessica Grove RN Unavailable Unavailable Fabiola Marinelli MD Primary Care Provider [phone] Lisette Perkins APRN-SANDWICH ARTIST Unavailable [phone] Theresa Romano MD PhD Unavailable [phone] Negro Epps MD PhD Unavailable [phone] Reason for Visit * Reason Comments Med Refill Encounter Details Date Type Department Care Team (Late st Contact Info) Description 06/18/2024 Refill [facility] [address] [place] [id number] Supa Lindquist MD PhD [address] [place], [place] [id number] Multiple myeloma not having achieved remission (Multi) Social History Tobacco Use Types Packs/Day Years Used Date Smoking Tobacco: Former Cigarettes 3 26.7 0 11/02/1976 - 08/02/2003 Passive Smoke Exposure: Past Smokeless Tobacco: Never Alcohol Use Standard Drinks/Week Comments Not Currently 0 (1 standard drink = 0.6 oz pur e alcohol) AUDIT-C Answer Date Recorded Q1: How often do you have a drink containing alcohol? Never 11/18/2023 Q2: How many drinks containi ng alcohol do you have on a typical day when you are drinking? Patient does not drink 4 Q3: How often do you have si x or more drinks on one occasion? Never 11/18/2023 Overall Financial Resource Strain (CARDIA) Answe r Date Recorded How hard is it for you to pa y for the very basics like food, housing, medical care, and heating? Not very hard 11/19/2023 PHQ-2 Answer Date Recorded Patient Health Questionnaire-2 Score 0 12/29/2023 PRAPARE - Transportation Answer Date Re corded In the past 12 months, has l ack of transportation kept you from medical appointments or from getting medications? No 11/02 In the past 12 months, has l ack of transportation kept you from meetings, work, or from getting things needed for daily living? No 11/19/2023 Housing Stability Vital Sign Answer Dionte e Recorded In the last 12 months, was t here a time when you were not able to pay the mortgage or rent on time? No 11/19/2023 In the last 12 months, how many places have you lived? 1 11/19/2023 In the last 12 months, was t here a time when you did not have a steady place to sleep or slept in a mcfp (including now)? No 11/19/2023 Comments Unknown Sex and Gender Information Value Date Recorded Sex Assigned at Not on file Legal Sex Female 4:17 PM EST Gender Identity Not on file Sexual Orientation Not on file COVID-19 Exposure Response Date Recorded In the last 10 days, have yo u been in contact with someone who was confirmed or suspected to have Coronavirus/COVID-19? No / Unsure 06/14/2024 2:09 PM EDT documented as of this encounter Plan of Treatment Not on file documented as of this encounter Visit Diagnoses Diagnosis Multiple myeloma not having achieved remission (Multi) documented in this encounter Additional Health Concerns Assessment Noted Time A fall risk assessment has been complete d for the patient 12/29/2023 1:02 PM EST documented as of this encounter Care Teams Visually Impaired Teacher Relationship Specialty Start Date End Date Fabiola Marinelli MD [address] [place] [address] PCP - General Hematology and Oncology 10/21/23 Sup[place]quist [place] PhD [address] [place] [address] Consulting Physician Hematology and Oncology 08/03/23 Jessica Grove, maid supervisor Coordinator Case Management 08/04/23 Lisette Perkins, SPECIAL NEEDS NANNY-SANDWICH ARTIST [address] [place] [address] Nurse Practitioner Hematology and Oncology 09/14/23 Theresa Romano [place] PhD [address] [place] [address] Consulting Physician Hematology and Oncology 11/18/23 [place] [address] [place] [address] Consulting Physician Hematology and Oncology 01/19/24 documented as of this encounter
--- OUTSIDE RECORDS SUMMARY | 2025-04-02 13:25 | XMS_ITS | Encounter Summary ---
Author Organization [facility] Address [address] [place] [address] Care Team Providers Care Vegetable Preparer Name Role Phone Vitaliy Thomson MD Unavailable [phone] Vitaliy Thomson MD Primary Care Provider [phone] Fabiola Palumbo NP Unavailable Letty Newsome NP Unavailable [phone] Sima Paul RN Unavailable [phone] Encounter Details Date Type Department Care Team (Late st Contact Info) Description 09/12/2024 Abstract [facility] [address] [place] [id number] Fabiola Palumbo NP [address] [place] [address] Social History Tobacco Use Types [...] Visit [facility] [address] [place] [address] Power Swain DO [address] [place] [place] [address] documented as of this encounter Visit Diagnoses Not on filedocumented in this encounter Additional Health Concerns Assessment Noted Time PHQ-9 Depression Total Score: 0 11/30/19 24 9:00 AM EST documented as of this encounter Care Teams Vegetable Preparer Relationship Specialty Start Date End Date Vitaliy Thomson MD [address] [place] [address] PCP - ACO Reach 03/26/23 Vitaliy Thomson MD [address] [place] [address] PCP - General Family Medicine 05/19/23 Fabiola Palumbo NP [address] [place] [address] Nurse Practitioner Family Medicine 05/19/23 01/19/25 Letty Newsome NP [address] [place] [address] Nurse Practitioner Pulmonary Disease 05/19/23 Sima Paul, LES Registered Nurse Family Medicine 08/24/23 documented as of this encounter
--- OUTSIDE RECORDS SUMMARY | 2025-04-02 13:25 | XMS_ITS | Encounter Summary ---
Author Organization [facility] Address [address] [place] [address] Care Team Providers Care Psych Nurse Name Role Phone Vitaliy Thomson MD Unavailable [phone] Vitaliy Thosmon MD Primary Care Provider [phone] Fabiola Palumbo NP Unavailable Letty Newsome NP Unavailable [phone] Sima Paul RN Unavailable [phone] Encounter Details Date Type Department Care Team (Late st Contact Info) Description 05/30/2024 Abstract [facility] [address] [place] [id number] Fabiola Palumbo NP [address] [place] [address] Social History Tobacco Use Types [...] Visit [facility] [address] [place] [address] Power Swain DO [address] [place] [address] documented as of this encounter Visit Diagnoses Not on filedocumented in this encounter Additional Health Concerns Assessment Noted Time PHQ-9 Depression Total Score: 0 11/30/19 24 9:00 AM EST documented as of this encounter Care Teams Psych Nurse Relationship Specialty Start Date End Date Vitaliy Thomson MD [address] [place] [address] PCP - ACO Reach 03/26/23 Vitaliy Thomson MD [address] [place] [address] PCP - General Family Medicine 05/19/23 Fabiola Palumbo NP [address] [place] [address] Nurse Practitioner Family Medicine 05/19/23 01/19/25 Letty Newsome NP [address] [place] [address] Nurse Practitioner Pulmonary Disease 05/19/23 Sima Paul, LES Registered Nurse Family Medicine 08/24/23 documented as of this encounter
--- OUTSIDE RECORDS SUMMARY | 2025-04-02 13:25 | XMS_ITS | Clinical Summary ---
Author Organization [facility] Address [address] [place] [address] Phone Care Team Providers Care Education Associate Name Role Phone Supa Lindquist MD PhD Unavailable Jessica Grove RN Unavailable Unavailable Fabiola Marinelli MD Primary Care Provider [phone] Lisette Perkins COMPACTOR DRIVER-INTERNAL REVENUE SERVICE AGENT Unavailable [phone] Theresa Romano MD PhD Unavailable [phone] Negro Epps MD PhD Unavailable [phone] Allergies Active Allergy Reactions Criticality Noted Date Comments Adhesive Other Low 05/15/2016 Amoxicillin Swelling,Rash Low 03/17/2006 Antazoline Itching Low 05/21/2023 Moxifloxacin Rash Low 08/04/2023 Diclofenac Hives Low 05/25/2019 Erythromycin Hives Low 10/31/2013 Latex Hives,Rash Medium 08/04/2023 Tetracyclines Hives,Rash Medium 08/04/2023 Medications albuterol 90 mcg/actuation inhaler Inhale 2 puffs every 4 hours if needed for shortness of breath or wheezing. 07/14/20 23 Active atorvastatin (Lipitor) 80 mg tablet Take 1 tablet (80 mg) by mouth once daily. 06/07/20 23 Active carvedilol (Coreg) 12.5 mg tablet Take 1 tablet (12.5 mg) by mouth 2 times daily (morning and late afternoon). 05/12/20 23 Active ondansetron ODT (Zofran-ODT) 8 mg disintegrating tablet Dissolve 1 tablet (8 mg) in the mouth every 8 hours if needed for vomiting or nausea. 07/29/20 Active oxyCODONE (Roxicodone) 10 mg immediate release tablet Take 1 tablet (10 mg) by mouth 4 times a day as needed for severe pain (7 - 10). 07/27/20 Active potassium chloride ER (Micro-K) 10 mEq ER capsule Take 1 capsule (10 mEq) by mouth once daily. 05/18/20 Active metFORMIN (Glucophage) 500 mg tablet Take 1 tablet (500 mg) by mouth 1 time. Active omeprazole (PriLOSEC) [address] capsule Take 1 capsule (40 mg) by mouth once daily. Do not crush or chew. Active fluticasone (Flonase) 50 mcg/actuation nasal spray Administer 1 spray into each nostril once daily as needed for rhinitis. Shake gently. Before first use, prime pump. After use, clean tip and replace cap. Active cyanocobalamin, vitamin B-12, 1,000 mcg tablet, sublingual Place 1 tablet (1,000 mcg) under the tongue once daily. Active cholecalciferol (Vitamin D-3) 125 MCG (5000 UT) capsule Take 1 capsule (125 mcg) by mouth once daily. Active melatonin 1 mg tablet Take 2 tablets (2 mg) by mouth once daily at bedtime. Active DULoxetine (Cymbalta) [address] capsuleIndications :Depression, unspecified depression type Take 1 capsule (60 mg) by mouth once daily. 30 capsule 01/12/20 24 Active naloxone (Narcan) 4 mg/0.1 mL nasal sprayIndications:C ough, unspecified type,Other chronic pain Administer 1 spray (4 mg) into affected nostril(s) if needed for opioid reversal. May repeat every 2-3 minutes if needed, alternating nostrils, until medical assistance becomes available. 2 each 02/01/20 24 Active EPINEPHrine 0.3 mg/0.3 mL injection syringe 02/22/20 24 Active gabapentin (Neurontin) 400 mg capsule TAKE 1 CAPSULE ORALLY THREE TIMES DAILY FOR PAIN FOR 30 DAYS 02/11/20 24 Active budesonide-glycopy r-formoterol (Breztri Aerosphere) 160-9-4.8 mcg/actuation HFA aerosol inhaler Inhale 2 puffs 2 times a day. Active acyclovir (Zovirax) 400 mg tabletIndications: Multiple myeloma not having achieved remission (Multi) Take 1 tablet (400 mg) by mouth 2 times a day. 180 tablet 1 03/22/20 24 Active sulfamethoxazole-t rimethoprim (Bactrim DS) 800-160 mg tabletIndications: Multiple myeloma, remission status unspecified (Multi) Take 1 tablet by mouth once a day on Thursday, Thursday, and Thursday. 12 tablet 1 05/11/20 24 Active furosemide (Lasix) 20 mg tablet Take 1 tablet (20 mg) by mouth early in the morning.. 10/06/20 24 Active hydrocortisone (Anusol-HC) 2.5 % rectal cream APPLY RECTALLY 2 TO 4 TIMES PER DAY NEEDED FOR HEMORRHOIDS 11/16/19 25 Active Ozempic 0.25 mg or 0.5 mg (2 mg/3 mL) pen injector Inject 0.5 mg under the skin 1 (one) time per week. 08/23/20 24 Active spironolactone (Aldactone) 50 mg tablet Take 1 tablet (50 mg) by mouth early in the morning.. 10/06/20 24 Active Active Problems Problem Noted Date Diagnosed [...] PM EST): Referral from Dr. Marinelli at [facility]. MGUS since 2005 Followed at [facility] by Dr. Kumari, and then Dr. Cummings. 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 Also clonal evolution in the marrow with [...] 3x weekly Hypogammaglobulinemia IVIG given 09/22/23, 10/29/23 ([facility]) 12/08/23 01/12/24 02/12/24. Cont monthly. Assessment & Plan (01/28/2024 12:26 PM EDT): Infection prophylaxis VZV: Acyclovir 400 mg PO BID PJP: Trimethoprim-sulfamethoxazole 800-160 mg PO 3x weekly Hypogammaglobulinemia IVIG given 09/22/23, 10/29/23 ([facility]) 12/08/23 and 01/12/24. Cont monthly. Assessment & Plan (01/14/2024 10:27 AM EDT): Infection prophylaxis VZV: Acyclovir 400 mg PO BID PJP: Trimethoprim-sulfamethoxazole 800-160 mg PO 3x weekly Hypogammaglobulinemia IVIG given 09/22/23, 10/29/23 ([facility]) and 12/08/23. Plan next today 01/12/24. Assessment & Plan (01/03/2024 11:33 AM EST): Infection prophylaxis VZV: Acyclovir 400 mg PO BID PJP: Trimethoprim-sulfamethoxazole 800-160 mg PO 3x weekly Hypogammaglobulinemia IVIG given 09/22/23, 10/29/23 ([facility]) and 12/08/23. Plan next dose 01/05/24. 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 Thoracic aortic aneurysm without rupture 019 GERD (gastroesophageal reflux disease) 8 Morbid obesity (Multi) 11/11/2017 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 Thrombocytopenia 05/31/2014 Sleep apnea 04/15/2006 Monoclonal paraproteinemia 03/26/2006 Resolved Problems Problem Noted Date Diagnosed Date Resolved Date Immunosuppressed status 08/14/202311/03 Assessment & Plan (11/18/2023 12:39 PM EST): Infection prophylaxis VZV: Continue acyclovir 400 mg PO BID PJP: Continue trimethoprim-sulfamethoxazole 800-160 mg PO 3x weekly Hypogammaglobulinemia IVIG given 09/22/23 and 10/29/23 ([facility]) Assessment & Plan (08/17/2023 7:42 AM EDT): [...] 11/18/19 24 Vitamin D deficiency 04/15/2006 024 Encounters Date Type Department Care Team Description 03/01/2025 [facility] [address] [place] [address] Boy Ferrera, COMPACTOR DRIVER-INTERNAL REVENUE SERVICE AGENT 01/05/2025 8:02 AM EST Anesthesia Event [facility] [id number] [place] [phone] Justus Rodriguez MD 01/05/2025 7:52 AM EST - 01/05/2025 11:59 PM EST Hospital Encounter [facility] [id number] [place] [phone] Liver cell carcinoma (Multi) Discharge Disposition: Home 01/05/2025 5:43 AM EST - 01/05/2025 7:51 AM EST Hospital Encounter [facility] [id number] [place] [phone] Liver cell carcinoma (Multi) Discharge Disposition: Home 01/05/2025 Travel from Last 3 Months Immunizations Immunization Administration Dates Next Due Flu vaccine (IIV4), preservative free *Check age /dose* 09/12/2019,10/14/2018 Influenza, Unspecified 09/12/2019 Influenza, seasonal, injectable 07/16/2015 Influenza, seasonal, intradermal, preservative f ree 10/05/2017 Pneumococcal conjugate vaccine, 13-valent (PREVN AR 13) 07/16/2015 Pneumococcal polysaccharide vaccine, 23-valent, age 2 years and older (PNEUMOVAX 23) 10/05/2017 Family History Medical History Relation Name Comments Lung cancer Brother Cancer Father Coronary artery disease Father Leukemia Maternal Grandmother Cancer Mother Cancer Paternal Grandmother Breast cancer Sister Relation Name Status Comments Brother Father Maternal Grandmother Mother Paternal Grandmother Sister Social History Tobacco Use Types Packs/Day Years Used Date Smoking Tobacco: Former Cigarettes 3 26.7 0 11/02/1976 - 08/02/2003 Passive Smoke Exposure: Past Smokeless Tobacco: Never Tobacco Cessation:Counseling Given: Not Answered Alcohol Use Standard Drinks/Week Comments Not Currently [...] place to sleep or slept in a care home (including now)? No 11/19/2023 Comments Unknown Sex and Gender Information Value Date Recorded Sex Assigned at Not on file Legal Sex Female 4:17 PM EST Gender Identity Not on file Sexual Orientation Not on file Last Filed Vital Signs Vital Sign Reading Time Taken Comments Blood Pressure 140/69 01/05/2025 1:30 PM EST Pulse 78 01/05/2025 1:30 PM EST Temperature 36.4 C (97.5 F) 01/05/2025 1:30 PM EST Respiratory Rate 16 01/05/2025 1:30 PM EST Oxygen Saturation 99% 01/05/2025 1:30 PM EST Inhaled Oxygen Concentration - - Weight 85.3 kg (188 lb) 01/05/2025 6:27 AM EST Height 157.5 cm (5' 2 ) 01/05/2025 6:27 AM EST Body Mass Index 34.39 01/05/2025 6:27 AM EST Plan of Treatment Health Maintenance Due Date Last Done Comments CT Colonography 1957 FIT-DNA (Cologuard) 1957 FIT 1957 Sigmoidoscopy 1957 COVID-19 Vaccine (#1) 1962 Hepatitis C Screening 1975 Hepatitis A Vaccines (1 of 2 - Risk 2-dose series) 1976 Zoster Vaccines (1 of 2) 1976 DTaP/Tdap/Td Vaccines (1 - Tdap) 1979 Hepatitis B Vaccines (1 of 3 - Risk 3-dose series) 2017 Diabetes: Retinopathy Screening 04/26/2022 04/26/2020 Pneumococcal Vaccine (3 of 3 - PCV20 or PCV21) 10/05/2022 10/05/2017, 07/16/2015 Mammogram 10/16/2023 10/16/2022, 10/02, 04/06/2020 Diabetes: Hemoglobin A1C 11/04/2023 08/04/2023 Medicare Annual Wellness Visit (AWV) 12/02/2023 12/01/2022, 11/22/2021, 11/23/2020, Additional history exists Diabetes: Urine Protein Screening 08/26/2025 08/26/2024, 11/30/2023 Lipid Panel 08/26/2025 08/26/2024 Colonoscopy 09/15/2028 09/15/2018 Colorectal Cancer Screening 09/15/2028 Welcome to Medicare Visit Discontinued 2022, 11/22/2021, 11/23/2020, Additional history exists Bone Density Scan Completed 12/29/2022, 12/29/2022 Influenza Vaccine Completed 10/18/2024, , 09/12/2019, Additional history exists RSV High Risk: (Elderly (60+) or Population) Completed 10/18/2024 HIB Vaccines Aged Out No longer eligi ble based on patient's age to complete this topic HPV Vaccines Aged Out No longer eligi ble based on patient's age to complete this topic IPV Vaccines Aged Out No longer eligi ble based on patient's age to complete this topic Meningococcal Vaccine Aged Out No christine bereket eligible based on patient's age to complete this topic Rotavirus Vaccines Aged Out No longer eligible based on patient's age to complete this topic Procedures Procedure Name Priority Date/Time Associated Diagnosis Comments PULSE OXIMETRY, CONTINUOUS Routine 01/05/2025 9:41 AM EST PULSE OXIMETRY, CONTINUOUS Routine 01/05/2025 9:41 AM EST PULSE OXIMETRY, CONTINUOUS Routine 01/05/2025 9:41 AM EST PULSE OXIMETRY, CONTINUOUS Routine 01/05/2025 9:[address] GUIDED RF ABLATION LIVER Routine 01/05/2025 9:30 AM EST Liver cell carcinoma (Multi) US GUIDED RF ABLATION LIVER Routine 01/05/2025 9:20 AM EST Liver cell carcinoma (Multi) ANESTHESIA PERIPHERAL IV PLACEMENT Routine 01/05/2025 8:19 AM EST NJ AN ELECTIVE ENDOTRACHEAL AIRWAY Routine 01/05/2025 8:13 AM EST COMPREHENSIVE METABOLIC PANEL STAT 01/05/2025 6:20 AM EST CBC STAT 01/05/2025 6:20 AM EST PROTIME-INR STAT 01/05/2025 6:19 AM EST POCT GLUCOSE Routine 01/05/2025 6:10 AM EST HEMOGLOBIN A1C Routine 08/04/2023 2:49 AM EDT from Last 3 Months or Most Recently Relevant to Health Maintenance Results * CT guided RF ablation liver (01/05/2025 9:30 AM EST) Anatomical Region Laterality Modality Body Angio, Body Computed Tomogr aphy 01/06/2025 8:38 AM EST 01/06/2025 8:38 AM EST Impressions 01/06/2025 8:37 AM EST 1. Uneventful microwave ablation of a segment 6/7 liver mass, as detailed above. I was present for and/or performed the critical portions of the procedure and immediately available throughout the entire procedure. I personally reviewed the image(s)/study and interpretation. I agree with the findings as stated. Performed and dictated at [facility]. MACRO: None. Signed by: Дмитрий Flores 01/06/2025 8:37 AM Dictation workstation: [id number] Narrative 01/06/2025 8:37 AM EST Interpreted By: Дмитрий Flores, and Ashley Roman STUDY: CT GUIDED RF ABLATION LIVER; US GUIDED RF ABLATION LIVER; 01/05/2025 9:30 am; 01/05/2025 9:20 am INDICATION: Signs/Symptoms:liver lesion. COMPARISON: MRI abdomen dated 10/24/2024 ACCESSION NUMBER(S): [id number]; [id number] ORDERING CLINICIAN: LÁZARO NICHOLAS TECHNIQUE: INTERVENTIONALIST(S): MD Abel Teran MD CONSENT: The patient/patient's POA/next of kin was informed of the nature of the proposed procedure. The purposes, alternatives, risks, and benefits were explained and discussed. All questions were answered and consent was obtained. SEDATION: Please see anesthesia flow sheet for additional information. RADIATION EXPOSURE: DLP: 863.97 mGy*cm MEDICATION/CONTRAST: 2 g of Ancef was administered intravenously. TIME OUT: A time out was performed immediately prior to procedure start with the interventional team, correctly identifying the patient name, date of , MRN, procedure, anatomy (including marking of site and side), patient position, procedure consent form, relevant laboratory and imaging test results, antibiotic administration, safety precautions, and procedure-specific equipment needs. COMPLICATIONS: No immediate adverse events identified. FINDINGS: Limited ultrasound and non contrast enhanced CT images were obtained through the abdomen for the purposes of needle guidance. The images demonstrate a lesion within segment 6/7 of the liver, corresponding to the mass seen on previous MRI. Patient was placed in supine position and prepped with maximum sterile barrier technique. Lidocaine was used for local anesthesia. Next, a 14 gauge AMICA microwave ablation probe was introduced intothe aforementioned segment 6/7 liver lesion under image guidance. After confirmation of the needle placement this was followed by 10 minutes of ablation at 60 W. Tract ablation was performed for 20 seconds at 40 weaver. The probe was subsequently removed. Final non contrast-enhanced CT images demonstrate satisfactory ablation defect and no evidence of post ablation hemorrhage. The patient tolerated the procedure well without any immediate complications. Procedure Note Дмитрий Flores MD - 01/06/2025 Interpreted By: Дмитрий Flores and Guirguis James STUDY: CT GUIDED RF ABLATION LIVER; US GUIDED RF ABLATION LIVER; 01/05/2025 9:30 am; 01/05/2025 9:20 am INDICATION: Signs/Symptoms:liver lesion. COMPARISON: MRI abdomen dated 10/24/2024 ACCESSION NUMBER(S): [id number]; [id number] ORDERING CLINICIAN: LÁZARO NICHOLAS TECHNIQUE: INTERVENTIONALIST(S): MD Abel Teran MD CONSENT: The patient/patient's POA/next of kin was informed of the nature of the proposed procedure. The purposes, alternatives, risks, and benefits were explained and discussed. All questions were answered and consent was obtained. SEDATION: Please see anesthesia flow sheet for additional information. RADIATION EXPOSURE: DLP: 863.97 mGy*cm MEDICATION/CONTRAST: 2 g of Ancef was administered intravenously. TIME OUT: A time out was performed immediately prior to procedure start with the interventional team, correctly identifying the patient name, date of , MRN, procedure, anatomy (including marking of site and side), patient position, procedure consent form, relevant laboratory and imaging test results, antibiotic administration, safety precautions, and procedure-specific equipment needs. COMPLICATIONS: No immediate adverse events identified. FINDINGS: Limited ultrasound and non contrast enhanced CT images were obtained through the abdomen for the purposes of needle guidance. The images demonstrate a lesion within segment 6/7 of the liver, corresponding to the mass seen on previous MRI. Patient was placed in supine position and prepped with maximum sterile barrier technique. Lidocaine was used for local anesthesia. Next, a 14 gauge AMICA microwave ablation probe was introduced intothe aforementioned segment 6/7 liver lesion under image guidance. After confirmation of the needle placement this was followed by 10 minutes of ablation at 60 W. Tract ablation was performed for 20 seconds at 40 weaver. The probe was subsequently removed. Final non contrast-enhanced CT images demonstrate satisfactory ablation defect and no evidence of post ablation hemorrhage. The patient tolerated the procedure well without any immediate complications. IMPRESSION: 1. Uneventful microwave ablation of a segment 6/7 liver mass, as detailed above. I was present for and/or performed the critical portions of the procedure and immediately available throughout the entire procedure. I personally reviewed the image(s)/study and interpretation. I agree with the findings as stated. Performed and dictated at [facility]. MACRO: None. Signed by: Дмитрий Flores 01/06/2025 8:37 AM Dictation workstation: [id number] us Lázaro Nicholas COMPACTOR DRIVER-INTERNAL REVENUE SERVICE AGENT IMG CT PROCEDURES Fin al Result * US guided RF ablation liver (01/05/2025 9:20 AM EST) Anatomical Region Laterality Modality Body Angio, Liver Ultrasound 01/06/2025 8:38 AM EST 01/06/2025 8:38 AM EST Impressions 01/06/2025 8:37 AM EST 1. Uneventful microwave ablation of a segment 6/7 liver mass, as detailed above. I was present for and/or performed the critical portions of the procedure and immediately available throughout the entire procedure. I personally reviewed the image(s)/study and interpretation. I agree with the findings as stated. Performed and dictated at [facility]. MACRO: None. Signed by: Дмитрий Flores 01/06/2025 8:37 AM Dictation workstation: [id number] Narrative 01/06/2025 8:37 AM EST Interpreted By: Дмитрий Flores, and Ashley Roman STUDY: CT GUIDED RF ABLATION LIVER; US GUIDED RF ABLATION LIVER; 01/05/2025 9:30 am; 01/05/2025 9:20 am INDICATION: Signs/Symptoms:liver lesion. COMPARISON: MRI abdomen dated 10/24/2024 ACCESSION NUMBER(S): [id number]; [id number] ORDERING CLINICIAN: LÁZARO NICHOLAS TECHNIQUE: INTERVENTIONALIST(S): MD Abel Teran MD CONSENT: The patient/patient's POA/next of kin was informed of the nature of the proposed procedure. The purposes, alternatives, risks, and benefits were explained and discussed. All questions were answered and consent was obtained. SEDATION: Please see anesthesia flow sheet for additional information. RADIATION EXPOSURE: DLP: 863.97 mGy*cm MEDICATION/CONTRAST: 2 g of Ancef was administered intravenously. TIME OUT: A time out was performed immediately prior to procedure start with the interventional team, correctly identifying the patient name, date of , MRN, procedure, anatomy (including marking of site and side), patient position, procedure consent form, relevant laboratory and imaging test results, antibiotic administration, safety precautions, and procedure-specific equipment needs. COMPLICATIONS: No immediate adverse events identified. FINDINGS: Limited ultrasound and non contrast enhanced CT images were obtained through the abdomen for the purposes of needle guidance. The images demonstrate a lesion within segment 6/7 of the liver, corresponding to the mass seen on previous MRI. Patient was placed in supine position and prepped with maximum sterile barrier technique. Lidocaine was used for local anesthesia. Next, a 14 gauge AMICA microwave ablation probe was introduced intothe aforementioned segment 6/7 liver lesion under image guidance. After confirmation of the needle placement this was followed by 10 minutes of ablation at 60 W. Tract ablation was performed for 20 seconds at 40 weaver. The probe was subsequently removed. Final non contrast-enhanced CT images demonstrate satisfactory ablation defect and no evidence of post ablation hemorrhage. The patient tolerated the procedure well without any immediate complications. Procedure Note Дмитрий Flores MD - 01/06/2025 Interpreted By: Дмитрий Flores and Ashley Roman STUDY: CT GUIDED RF ABLATION LIVER; US GUIDED RF ABLATION LIVER; 01/05/2025 9:30 am; 01/05/2025 9:20 am INDICATION: Signs/Symptoms:liver lesion. COMPARISON: MRI abdomen dated 10/24/2024 ACCESSION NUMBER(S): [id number]; [id number] ORDERING CLINICIAN: LÁZARO NICHOLAS TECHNIQUE: INTERVENTIONALIST(S): MD Abel Teran MD CONSENT: The patient/patient's POA/next of kin was informed of the nature of the proposed procedure. The purposes, alternatives, risks, and benefits were explained and discussed. All questions were answered and consent was obtained. SEDATION: Please see anesthesia flow sheet for additional information. RADIATION EXPOSURE: DLP: 863.97 mGy*cm MEDICATION/CONTRAST: 2 g of Ancef was administered intravenously. TIME OUT: A time out was performed immediately prior to procedure start with the interventional team, correctly identifying the patient name, date of , MRN, procedure, anatomy (including marking of site and side), patient position, procedure consent form, relevant laboratory and imaging test results, antibiotic administration, safety precautions, and procedure-specific equipment needs. COMPLICATIONS: No immediate adverse events identified. FINDINGS: Limited ultrasound and non contrast enhanced CT images were obtained through the abdomen for the purposes of needle guidance. The images demonstrate a lesion within segment 6/7 of the liver, corresponding to the mass seen on previous MRI. Patient was placed in supine position and prepped with maximum sterile barrier technique. Lidocaine was used for local anesthesia. Next, a 14 gauge AMICA microwave ablation probe was introduced intothe aforementioned segment 6/7 liver lesion under image guidance. After confirmation of the needle placement this was followed by 10 minutes of ablation at 60 W. Tract ablation was performed for 20 seconds at 40 weaver. The probe was subsequently removed. Final non contrast-enhanced CT images demonstrate satisfactory ablation defect and no evidence of post ablation hemorrhage. The patient tolerated the procedure well without any immediate complications. IMPRESSION: 1. Uneventful microwave ablation of a segment 6/7 liver mass, as detailed above. I was present for and/or performed the critical portions of the procedure and immediately available throughout the entire procedure. I personally reviewed the image(s)/study and interpretation. I agree with the findings as stated. Performed and dictated at [facility]. MACRO: None. Signed by: Дмитрий Flores 01/06/2025 8:37 AM Dictation workstation: [id number] us Lázaro Nicholas COMPACTOR DRIVER-INTERNAL REVENUE SERVICE AGENT IMG US PROCEDURES Fin al Result * ANESTHESIA PERIPHERAL IV PLACEMENT (01/05/2025 8:19 AM EST) Abel Gr CAA - 01/05/2025 8:19 AM EST JEAN-PAUL Reveles 01/05/2025 8:19 AM Peripheral IV Date/Time: 01/05/2025 8:19 AM Placement Needle size: 18 G Laterality: right Location: hand Site prep: alcohol Attempts: 1 us Justus Rodriguez MD ANESTHESIA ORDERABLES Final Result * NJ AN ELECTIVE ENDOTRACHEAL AIRWAY (01/05/2025 8:13 AM EST) Abel Gr CAA - 01/05/2025 8:13 AM EST JEAN-PAUL Reveles 01/05/2025 8:13 AM Airway Date/Time: 01/05/2025 8:13 AM Urgency: elective Airway not difficult Staffing Performed: BROCK Authorized by: Justus Rodriguez MD Performed by: JEAN-PAUL Reveles Patient location during procedure: OR Indications and Patient Condition Indications for airway management: anesthesia Spontaneous Ventilation: absent Sedation level: deep Preoxygenated: yes Patient position: sniffing Mask difficulty assessment: 1 - vent by mask Planned trial extubation Final Airway Details Final airway type: endotracheal airway Successful airway: ETT Cuffed: yes Successful intubation technique: direct laryngoscopy Facilitating devices/methods: intubating stylet Blade: [place] Blade size: #3 ETT size (mm): 7.0 Cormack-Lehane Classification: grade I - full view of glottis Placement verified by: chest auscultation and capnometry Measured from: lips ETT to lips (cm): 21 Number of attempts at approach: 1 us Justus Rodriguez MD ANESTHESIA ORDERABLES Final Result * (ABNORMAL) CBC (01/05/2025 6:20 AM EST) WBC 1.7(L) 4.4 - 11.3 x10*3/uL LAB HEMATOLOGY METHOD 01/05/2025 7:18 AM EST [facility] nRBC 0.0 0.0 - 0.0 /100 WBCs LAB HEMATOLOGY METHOD 01/05/2025 7:18 AM EST [facility] RBC 3.22(L) 4.00 - 5.20 x10*6/uL LAB HEMATOLOGY METHOD 01/05/2025 7:18 AM EST [facility] Hemoglobin 8.8(L) 12.0 - 16.0 g/dL LAB HEMATOLOGY METHOD 01/05/2025 7:18 AM EST [facility] Hematocrit 28.0(L) 36.0 - 46.0 % LAB HEMATOLOGY METHOD 01/05/2025 7:18 AM EST [facility] MCV 87 80 - 100 fL LAB HEMATOLOGY METHOD 01/05/2025 7:18 AM EST [facility] MCH 27.3 26.0 - 34.0 pg LAB HEMATOLOGY METHOD 01/05/2025 7:18 AM EST [facility] MCHC 31.4(L) 32.0 - 36.0 g/dL LAB HEMATOLOGY METHOD 01/05/2025 7:18 AM EST [facility] RDW 18.7(H) 11.5 - 14.5 % LAB HEMATOLOGY METHOD 01/05/2025 7:18 AM EST [facility] Platelets 51(L) 150 - 450 x10*3/uL LAB HEMATOLOGY METHOD 01/05/2025 7:18 AM EST [facility] Blood Venous blood specimen / Unknown 01/05/2025 6:20 AM EST 01/05/2025 6:24 AM EST Дмитрий Flores MD LAB BLOOD ORDERABLES Final Result [facility] [address] [id number] * (ABNORMAL) Comprehensive Metabolic Panel (01/05/2025 6:20 AM EST) Pathologist [facility] Glucose 95 74 - 99 mg/dL LAB CHEMISTRY METHOD 01/05/2025 6:55 AM EST [facility] Sodium 137 136 - 145 mmol/L LAB CHEMISTRY METHOD 01/05/2025 6:55 AM EST [facility] Potassium 4.2 3.5 - 5.3 mmol/L LAB CHEMISTRY METHOD 01/05/2025 6:55 AM EST [facility] Chloride 105 98 - 107 mmol/L LAB CHEMISTRY METHOD 01/05/2025 6:55 AM EST [facility] Bicarbonate 26 21 - 32 mmol/L LAB CHEMISTRY METHOD 01/05/2025 6:55 AM [facility] Anion Gap 10 10 - 20 mmol/L LAB CHEMISTRY METHOD 01/05/2025 6:55 AM EST [facility] Urea Nitrogen 13 6 - 23 mg/dL LAB CHEMISTRY METHOD 01/05/2025 6:55 AM [facility] Creatinine 0.90 0.50 - 1.05 mg/dL LAB CHEMISTRY METHOD 01/05/2025 6:55 AM [facility] eGFR 70 >60 mL/min/1. 73m*2 LAB CHEMISTRY METHOD 01/05/2025 6:55 AM [facility] Comment: Calculations of estimated GFR are performed using the 2020 CKD-EPI Study Refit equation without the race variable for the IDMS-Traceable creatinine methods. https://jasn.asnjournals.org/content/early//ASN.9048706106 Calcium 8.5(L) 8.6 - 10.3 mg/dL LAB CHEMISTRY METHOD 01/05/2025 6:55 AM [facility] Albumin 3.6 3.4 - 5.0 g/dL LAB CHEMISTRY METHOD 01/05/2025 6:55 AM [facility] Alkaline Phosphatase 75 33 - 136 U/L LAB CHEMISTRY METHOD 01/05/2025 6:55 AM [facility] Total Protein 5.6(L) 6.4 - 8.2 g/dL LAB CHEMISTRY METHOD 01/05/2025 6:55 AM EST [facility] AST 27 9 - 39 U/L LAB CHEMISTRY METHOD 01/05/2025 6:55 AM [facility] Bilirubin, Total 0.6 0.0 - 1.2 mg/dL LAB CHEMISTRY METHOD 01/05/2025 6:55 AM [facility] ALT 13 7 - 45 U/L LAB CHEMISTRY METHOD 01/05/2025 6:55 AM [facility] Comment:Patients treated wit h Sulfasalazine may generate falsely decreased results for ALT. Blood Venous blood specimen / Unknown 01/05/2025 6:20 AM EST 01/05/2025 6:24 AM EST Дмитрий Flores MD LAB BLOOD ORDERABLES Final Result Performing Organization Address [facility] de Phone Number [facility] [id number] [place] [address] * (ABNORMAL) Protime-INR (01/05/2025 6:19 AM EST) [facility] Protime 13.9(H) 9.8 - 12.4 seconds LAB COAGULATION METHOD 01/05/2025 6:45 AM EST [facility] INR 1.3(H) 0.9 - 1.1 LAB COAGULATION METHOD 01/05/2025 6:45 AM EST [facility] Blood Venous blood specimen / Unknown 01/05/2025 6:19 AM EST 01/05/2025 6:24 AM EST us Дмитрий Flores MD LAB BLOOD ORDERABLES Final Result Performing Organization Address [facility] Phone Number [facility] [address] [place] [address] * POCT GLUCOSE (01/05/2025 6:10 AM EST) [facility] POCT Glucose 91 74 - 99 mg/dL 01/05/2025 6:12 AM EST [facility] Blood Capillary blood specimen / Unknown 01/05/2025 6:10 AM EST 01/05/2025 6:12 AM EST us Interface Unspecifiedprovider LAB POINT OF CARE TEST DOCKED DEVICE UNSOLICITED RESULTS Final Result Performing Organization Address [facility] Co de Phone Number [facility] [address] [place] [address] * Hemoglobin A1C (08/04/2023 2:49 AM EDT) [facility] Hemoglobin A1C 4.9 see below % 4:08 AM EDT [facility] Estimated Average Glucose 94 Not Established mg/dL 08/04/2023 4:08 AM EDT [facility] Blood Venous blood specimen / Unknown 08/04/2023 2:49 AM EDT 08/04/2023 3:18 AM EDT Kevin Machado PA-C LAB BLOOD ORDERABLES Final R esult [facility] [address] [facility] [address] [id number] from Last 3 Months or Most Recently Relevant to Health Maintenance Insurance MEDICAID MEDICARE PART A AND B MEDICAID MEDICARE PART A AND B Advance Directives For more information, please contact: [phone] (Available ) * Full Code (Latest Code Status on File) Date Activated Date Inactivated Comments 11/18/2023 2:23 PM Question Answer Comments Plan of Care: Code Status Discussion Completed Decision Maker: Patient * Full Code Date Activated Date Inactivated Comments 08/04/2023 12:24 AM 08/13/2023 3:26 PM Question Answer Comments Plan of Care: Code Status Discussion Completed Decision Maker: Patient * Full Code Date Activated Date Inactivated Comments 08/04/2023 12:24 AM 08/04/2023 12:24 AM Question Answer Comments Plan of Care: Code Status Discussion Completed Decision Maker: Patient Care Teams Education Associate Relationship Specialty Start Date End Date Fabiola Marinelli MD [address] [place] [address] PCP - General Hematology and Oncology 08/22/23 Supa Lindquist [place] PhD [address] [place] [address] Consulting Physician Hematology and Oncology 08/03/23 Jessica Grove, wheel filler Coordinator Case Management 08/04/23 Lisette Perkins, COMPACTOR DRIVER-INTERNAL REVENUE SERVICE AGENT [address] [place] [address] Nurse Practitioner Hematology and Oncology 09/14/23 Theresa Romano MD PhD [address] [place] [address] Consulting Physician Hematology and Oncology 11/18/23 Negro Epps [place] PhD [address] [place] [address] Consulting Physician Hematology and Oncology 01/19/24
--- OUTSIDE RECORDS SUMMARY | 2025-04-02 13:25 | XMS_ITS | Clinical Summary ---
Author Organization [facility] Address [address] [place] [address] Care Team Providers Care Nutrition Services Associate Name Role Phone Unavailable Primary Care Provider Unavailabl e Social History Tobacco Use Types Packs/Day Years Used Date Smoking Tobacco: Never Assessed Comments Unknown Sex and Gender Information Value Date Recorded Sex Assigned at Not on file Legal Sex Female 1:13 PM EST Gender Identity Not on file Sexual Orientation Not on file Plan of Treatment Not on file
--- OUTSIDE RECORDS SUMMARY | 2025-04-02 13:25 | XMS_ITS | Encounter Summary ---
Author Organization [facility] Address [address] [facility] [place] [address] Care Team Providers Care Correctional Maintenance Technician Name Role Phone Vitaliy Thomson MD Unavailable [phone] Vitaliy Thomson MD Primary Care Provider [phone] Fabiola Palumbo NP Unavailable Letty Newsome NP Unavailable [phone] Sima Paul RN Unavailable [phone] Encounter Details Date Type Department Care Team (Late st Contact Info) Description 04/19/2024 Abstract [facility] [address] [place] [phone] Fabiola Palumbo NP [address] [place] [address] Social History Tobacco Use Types [...] Visit [facility] [address] [place] [address] Power Swain DO [address] [place] [address] documented as of this encounter Visit Diagnoses Not on filedocumented in this encounter Additional Health Concerns Assessment Noted Time PHQ-9 Depression Total Score: 0 11/30/19 24 9:00 AM EST documented as of this encounter Care Teams Correctional Maintenance Technician Relationship Specialty Start Date End Date Vitaliy Thomson MD [address] [place] [place] [address] PCP - ACO Reach 03/26/23 Vitaliy Thomson MD [address] [place] [place] [address] PCP - General Family Medicine 05/19/23 Fabiola Palumbo NP [address] [place] [address] Nurse Practitioner Family Medicine 05/19/23 01/19/25 Letty Newsome NP [address] [place] [address] Nurse Practitioner Pulmonary Disease 05/19/23 Sima Paul, LES Registered Nurse Family Medicine 08/24/23 documented as of this encounter
--- OUTSIDE RECORDS SUMMARY | 2025-04-02 13:25 | XMS_ITS | Encounter Summary ---
Author Organization [facility] Address [address] [facility] [place] [address] Care Team Providers Care Career And Transition Teacher Name Role Phone Vitaliy Thomson MD Unavailable [phone] Vitaliy Thomson MD Primary Care Provider [phone] Fabiola Palumbo NP Unavailable Letty Newsome SURVEY COMPILER Unavailable [phone] Sima Paul RN Unavailable [phone] Encounter Details Date Type Department Care Team (Late st Contact Info) Description 06/06/2024 Abstract [facility] [address] [place] [phone] Vitaliy Thomson MD [address] [place] [address] Social History Tobacco Use Types [...] SEP [address] [place] [address] Power Swain DO [address] [place] [address] documented as of this encounter Visit Diagnoses Not on filedocumented in this encounter Additional Health Concerns Assessment Noted Time PHQ-9 Depression Total Score: 0 11/30/19 24 9:00 AM EST documented as of this encounter Care Teams Career And Transition Teacher Relationship Specialty Start Date End Date Vitaliy Thomson MD [address] [place] [address] PCP - ACO Reach 03/26/23 Vitaliy Thomson MD [address] [place] [address] PCP - General Family Medicine 05/19/23 Fabiola Palumbo NP [address] [place] [address] Nurse Practitioner Family Medicine 05/19/23 01/19/25 Letty Newsome NP [address] [place] [address] Nurse Practitioner Pulmonary Disease 05/19/23 Sima Paul, LES Registered Nurse Family Medicine 08/24/23 documented as of this encounter
--- OUTSIDE RECORDS SUMMARY | 2025-04-02 13:25 | XMS_ITS | Encounter Summary ---
Author Organization [facility] Address [address] [facility] [place] [address] Care Team Providers Care Home Specialist Name Role Phone Vitaliy Thomson MD Unavailable [phone] Vitaliy Thomson MD Primary Care Provider [phone] Fabiola Palumbo NP Unavailable Letty Newsome INFORMATION OPERATOR Unavailable [phone] Sima Paul RN Unavailable [phone] Encounter Details Date Type Department Care Team (Late st Contact Info) Description 12/29/2024 Abstract [facility] [address] [place] [phone] Vitaliy Thomson MD [address] [place] [address] Social History Tobacco Use Types [...] SEP [address] [place] [address] Power Swain DO [address] [place] [address] documented as of this encounter Visit Diagnoses Not on filedocumented in this encounter Additional Health Concerns Assessment Noted Time PHQ-9 Depression Total Score: 0 11/30/19 24 9:00 AM EST documented as of this encounter Care Teams Home Specialist Relationship Specialty Start Date End Date Vitaliy Thomson MD [address] [place] [address] PCP - ACO Reach 03/26/23 Vitaliy Thomson MD [address] [place] [address] PCP - General Family Medicine 05/19/23 Fabiola Palumbo NP [address] [place] [address] Nurse Practitioner Family Medicine 05/19/23 01/19/25 Letty Newsome NP [address] [place] [address] Nurse Practitioner Pulmonary Disease 05/19/23 Sima Paul, LES Registered Nurse Family Medicine 08/24/23 documented as of this encounter
--- OUTSIDE RECORDS SUMMARY | 2025-04-02 13:25 | XMS_ITS | Encounter Summary ---
Author Organization [facility] Address [address] [facility] [place] [address] Care Team Providers Care Blueprint Tracer Name Role Phone Vitaliy Thomson MD Unavailable [phone] Vitaily Thomson MD Primary Care Provider [phone] Fabiola Palumbo NP Unavailable Letty Newsome NP Unavailable [phone] Sima Paul RN Unavailable [phone] Encounter Details Date Type Department Care Team (Late st Contact Info) Description 04/11/2024 Abstract [facility] [address] [place] [phone] Fabiola Palumbo NP [address] [place] [address] Social History Tobacco Use Types [...] Visit [facility] [address] [place] [address] Power Swain DO [address] [place] [address] documented as of this encounter Visit Diagnoses Not on filedocumented in this encounter Additional Health Concerns Assessment Noted Time PHQ-9 Depression Total Score: 0 11/30/19 24 9:00 AM EST documented as of this encounter Care Teams Blueprint Tracer Relationship Specialty Start Date End Date Vitaliy Thomson MD [address] [place] [address] PCP - ACO Reach 03/26/23 Vitaliy Thomson MD [address] [place] [address] PCP - General Family Medicine 05/19/23 Fabiola Palumbo NP [address] [place] [address] Nurse Practitioner Family Medicine 05/19/23 01/19/25 Letty Newsome NP [address] [place] [address] Nurse Practitioner Pulmonary Disease 05/19/23 Sima Paul, LES Registered Nurse Family Medicine 08/24/23 documented as of this encounter
--- OUTSIDE RECORDS SUMMARY | 2025-04-02 13:25 | XMS_ITS | Encounter Summary ---
Author Organization [facility] Address [address] [place] [address] Care Team Providers Care Turning And Beading Machine Operator Name Role Phone Vitaliy Thomson MD Unavailable [phone] Vitaliy Thomson MD Primary Care Provider [phone] Fabiola Palumbo NP Unavailable Letty Newsome OPERATIONS LEADER Unavailable [phone] Sima Paul RN Unavailable [phone] Encounter Details Date Type Department Care Team (Late st Contact Info) Description 07/18/2024 Clinisync Result Encounter [facility] External Department Unsolicited Provider, Generic External Data Social History Tobacco Use Types Packs/Day Years [...] 05/26/2025 10:20 AM EDT Office Visit [facility] [address] [place] [address] Power Swain, DO [address] [place] [address] documented as of this encounter Procedures Procedure Name Priority Date/Time Associated Diagnosis Comments ECG01 07/18/2024 10:05 AM EDT documented in this encounter Results * ECG01 (07/18/2024 10:05 AM EDT) Anatomical Region Laterality Modality Other 07/18/2024 10:0 5 AM EDT Narrative 07/20/2024 10:23 PM EDT Ventricular Rate : 76 BPM Atrial Rate : 76 BPM P-R Interval : 166 ms QRS Duration : 78 ms Q-T Interval : 366 ms QTC Calculation(Bazett) : 411 ms Calculated P [place] : 46 degrees Calculated R [place] : 14 degrees Calculated T [place] : 31 degrees NORMAL SINUS RHYTHM NORMAL ECG Confirmed by CRYSTAL MCKAY M.D. ([id number]) on 07/20/2024 10:23:07 PM NAME : MOJGAN PÉREZ PID : [id number] : 1955 Gender : Female Race : ORD : Procedure Date : Jul 18 2024 10:05:50 Edit Date : Jul 20 2024 22:23:11 Diagnosis: NORMAL SINUS RHYTHM NORMAL ECG Confirmed by CRYSTAL MCKAY M.D. ([id number]) on 07/20/2024 10:23:07 PM Test Reason : Location : 192 : AVCRD Overread By : CRYSTAL MCKAY M.D. Edited By : CRYSTAL MCKAY M.D. Referred By : SELF, Acquired by : , Procedure Note Radiology, Radiologist, - 07/20/2024 Ventricular Rate : 76 BPM Atrial Rate : 76 BPM P-R Interval : 166 ms QRS Duration : 78 ms Q-T Interval : 366 ms QTC Calculation(Bazett) : 411 ms Calculated P [place] : 46 degrees Calculated R [place] : 14 degrees Calculated T [place] : 31 degrees NORMAL SINUS RHYTHM NORMAL ECG Confirmed by CRYSTAL MCKAY M.D. ([id number]) on 07/20/2024 10:23:07 PM NAME : MOJGAN PÉREZ PID : [id number] : 1955 Gender : Female Race : ORD : Procedure Date : Jul 18 2024 10:05:50 Edit Date : Jul 20 2024 22:23:11 Diagnosis: NORMAL SINUS RHYTHM NORMAL ECG Confirmed by CRYSTAL MCKAY M.D. ([id number]) on 07/20/2024 10:23:07 PM Test Reason : Location : 192 : AVD Overread By : CRYSTAL MCKAY M.D. Edited By : CRYSTAL MCKAY M.D. Referred By : SELF, Acquired by : , Generic External Data Provider [facility] Final Result documented in this encounter Visit Diagnoses Not on filedocumented in this encounter Additional Health Concerns Assessment Noted Time PHQ-9 Depression Total Score: 0 11/30/19 24 9:00 AM EST documented as of this encounter Care Teams Turning And Beading Machine Operator Relationship Specialty Start Date End Date Vitaliy Thomson MD [address] [place] [address] PCP - ACO Reach 03/26/23 Vitaliy Thomson MD [address] [place] [address] PCP - General Family Medicine 05/19/23 Fabiola Palumbo NP [address] [place] [address] Nurse Practitioner Family Medicine 05/19/23 01/19/25 Letty Newsome NP [address] [place] [address] Nurse Practitioner Pulmonary Disease 05/19/23 Sima Paul, LES Registered Nurse Family Medicine 08/24/23 documented as of this encounter
--- OUTSIDE RECORDS SUMMARY | 2025-04-02 13:25 | XMS_ITS | Encounter Summary ---
Author Organization [facility] Address [address] [facility] [place] [address] Care Team Providers Care Fisheries Management Biologist Name Role Phone Vitaliy Thomson MD Unavailable [phone] Vitaliy Thomson MD Primary Care Provider [phone] Fabiola Palumbo NP Unavailable Letty Newsome NP Unavailable [phone] Sima Paul RN Unavailable [phone] Encounter Details Date Type Department Care Team (Late st Contact Info) Description 05/30/2024 Abstract [facility] [address] [place] [address] Fabiola Palumbo NP [address] [place] [address] Social History Tobacco Use Types [...] Visit [facility] [address] [place] [address] Power Swain DO [address] [place] [address] documented as of this encounter Visit Diagnoses Not on filedocumented in this encounter Additional Health Concerns Assessment Noted Time PHQ-9 Depression Total Score: 0 11/30/19 24 9:00 AM EST documented as of this encounter Care Teams Fisheries Management Biologist Relationship Specialty Start Date End Date Vitaliy Thomson MD [address] [place] [address] PCP - ACO Reach 03/26/23 Vitaliy Thomson MD [address] [place] [address] PCP - General Family Medicine 05/19/23 Fabiola Palumbo NP [address] [place] [address] Nurse Practitioner Family Medicine 05/19/23 01/19/25 Letty Newsome NP [address] [place] [address] Nurse Practitioner Pulmonary Disease 05/19/23 Sima Paul, LES Registered Nurse Family Medicine 08/24/23 documented as of this encounter
--- OUTSIDE RECORDS SUMMARY | 2025-04-02 13:25 | XMS_ITS | Encounter Summary ---
Author Organization [facility] Address [address] [facility] [place] [place] [address] Care Team Providers Care Nurse Extern Name Role Phone Vitaliy Thomson MD Unavailable [phone] Vitaliy Thomson MD Primary Care Provider [phone] Fabiola Palumbo NP Unavailable Letty Newsome NP Unavailable [phone] Sima Paul RN Unavailable [phone] Encounter Details Date Type Department Care Team (Late st Contact Info) Description 08/27/2024 Abstract [facility] [address] [place] [phone] Fabiola Palumbo NP [address] [place], [place] [address] Social History Tobacco Use Types Packs/Day Years [...] [facility] [address] [place] [address] Power Swain DO [address] [place] [address] documented as of this encounter Visit Diagnoses Not on filedocumented in this encounter Additional Health Concerns Assessment Noted Time PHQ-9 Depression Total Score: 0 11/30/19 24 9:00 AM EST documented as of this encounter Care Teams Nurse Extern Relationship Specialty Start Date End Date Vitaliy Thomson MD [address] [place] [address] PCP - ACO Reach 03/26/23 Vitaliy Thomson MD [address] [place] [address] PCP - General Family Medicine 05/19/23 Fabiola Palumbo NP [address] [place] [address] Nurse Practitioner Family Medicine 05/19/23 01/19/25 Letty Newsome NP [address] [place] [address] Nurse Practitioner Pulmonary Disease 05/19/23 Sima Paul, LES Registered Nurse Family Medicine 08/24/23 documented as of this encounter
--- OUTSIDE RECORDS SUMMARY | 2025-04-02 13:25 | XMS_ITS | Encounter Summary ---
Author Organization [facility] Address [address] [facility] [place] [address] Care Team Providers Care Armored Service Technician Name Role Phone Vitaliy Thomson MD Unavailable Vitaliy Thomson MD Primary Care Provider [phone] Fabiola Palumbo NP Unavailable Letty Newsome IRRIGATION SPECIALIST Unavailable [phone] Sima Paul RN Unavailable [phone] Encounter Details Date Type Department Care Team (Late st Contact Info) Description 01/05/2024 Abstract [facility] [address] [place] [address] Marcie Cota MA Social History Tobacco Use [...] SEP [address] [place] [address] Power Swain DO [address] [place] [address] documented as of this encounter Visit Diagnoses Not on filedocumented in this encounter Additional Health Concerns Assessment Noted Time PHQ-9 Depression Total Score: 0 11/30/19 24 9:00 AM EST documented as of this encounter Care Teams Armored Service Technician Relationship Specialty Start Date End Date Vitaliy Thomson MD [address] [place] [address] PCP - ACO Reach 03/26/23 Vitaliy Thomson MD [address] [place] [address] PCP - General Family Medicine 05/19/23 Fabiola Palumbo NP [address] [place] [address] Nurse Practitioner Family Medicine 05/19/23 01/19/25 Letty Newsome NP [address] [place] [address] Nurse Practitioner Pulmonary Disease 05/19/23 Sima Paul, LES Registered Nurse Family Medicine 08/24/23 documented as of this encounter
--- OUTSIDE RECORDS SUMMARY | 2025-04-02 13:25 | XMS_ITS | Encounter Summary ---
Author Organization [facility] Address [address] [facility] [place] [address] Care Team Providers Care Deputy Sheriff Building Guard Name Role Phone Vitaliy Thomson MD Unavailable [phone] Vitaliy Thomson MD Primary Care Provider [phone] Fabiola Palumbo NP Unavailable Letty Newsome NP Unavailable [phone] Sima Paul RN Unavailable [phone] Encounter Details Date Type Department Care Team (Late st Contact Info) Description 04/19/2024 Abstract [facility] [address] [place] [address] Fabiola Palumbo NP [address] [place] [address] Social History Tobacco Use Types [...] Visit [facility] [address] [place] [address] Power Swain DO [address] [place] [address] documented as of this encounter Visit Diagnoses Not on filedocumented in this encounter Additional Health Concerns Assessment Noted Time PHQ-9 Depression Total Score: 0 11/30/19 24 9:00 AM EST documented as of this encounter Care Teams Deputy Sheriff Building Guard Relationship Specialty Start Date End Date Vitaliy Thomson MD [address] [place] [address] PCP - ACO Reach 03/26/23 Vitaliy Thomson MD [address] [place] [place] [address] PCP - General Family Medicine 05/19/23 Fabiola Palumbo NP [address] [place] [place] [address] Nurse Practitioner Family Medicine 05/19/23 01/19/25 Letty Newsome NP [address] [place] [address] Nurse Practitioner Pulmonary Disease 05/19/23 Sima Paul, LES Registered Nurse Family Medicine 08/24/23 documented as of this encounter
--- OUTSIDE RECORDS SUMMARY | 2025-04-02 13:25 | XMS_ITS | Encounter Summary ---
Author Organization [facility] Address [address] [facility] [place] [address] Care Team Providers Care General Dentist/Owner Name Role Phone Vitaliy Thomson MD Unavailable [phone] Vitaliy Thomson MD Primary Care Provider [phone] Fabiola Palumbo NP Unavailable Letty Newsome NP Unavailable [phone] Sima Paul RN Unavailable [phone] Encounter Details Date Type Department Care Team (Late st Contact Info) Description 04/11/2024 Abstract [facility] [address] [place] [address] Fabiola Palumbo NP [address] [place] [address] Social History Tobacco Use Types [...] Visit [facility] [address] [place] [address] Power Swain DO [address] [place] [address] documented as of this encounter Visit Diagnoses Not on filedocumented in this encounter Additional Health Concerns Assessment Noted Time PHQ-9 Depression Total Score: 0 11/30/19 24 9:00 AM EST documented as of this encounter Care Teams General Dentist/Owner Relationship Specialty Start Date End Date Vitaliy Thomson MD [address] [place] [address] PCP - ACO Reach 03/26/23 Vitaliy Thomson MD [address] [place] [address] PCP - General Family Medicine 05/19/23 Fabiola Palumbo NP [address] [place] [address] Nurse Practitioner Family Medicine 05/19/23 01/19/25 Letty Newsome NP [address] [place] [address] Nurse Practitioner Pulmonary Disease 05/19/23 Sima Paul, LES Registered Nurse Family Medicine 08/24/23 documented as of this encounter
--- OUTSIDE RECORDS SUMMARY | 2025-04-02 13:25 | XMS_ITS | Encounter Summary ---
Author Organization [facility] Address [address] [facility] [place] [address] Care Team Providers Care Housekeeper Head Name Role Phone Vitaliy Thomson MD Unavailable [phone] Vitaliy Thomson MD Primary Care Provider [phone] Fabiola Palumbo NP Unavailable Letty Newsome IT SUPPORT SPECIALIST Unavailable [phone] Sima Paul RN Unavailable [phone] Encounter Details Date Type Department Care Team (Late st Contact Info) Description 04/11/2024 Abstract [facility] [address] [place] [address] Vitaliy Thomson MD [address] [place] [address] Social History Tobacco Use Types [...] SEP [address] [place] [address] Power Swain DO [address] [place] [address] documented as of this encounter Visit Diagnoses Not on filedocumented in this encounter Additional Health Concerns Assessment Noted Time PHQ-9 Depression Total Score: 0 11/30/19 24 9:00 AM EST documented as of this encounter Care Teams Housekeeper Head Relationship Specialty Start Date End Date Vitaliy Thomson MD [address] [place] [address] PCP - ACO Reach 03/26/23 Vitaliy Thomson MD [address] [place] [address] PCP - General Family Medicine 05/19/23 Fabiola Palumbo NP [address] [place] [address] Nurse Practitioner Family Medicine 05/19/23 01/19/25 Letty Newsome NP [address] [place] [address] Nurse Practitioner Pulmonary Disease 05/19/23 Sima Paul, LES Registered Nurse Family Medicine 08/24/23 documented as of this encounter
--- OUTSIDE RECORDS SUMMARY | 2025-04-02 13:25 | XMS_ITS | Encounter Summary ---
Author Organization [facility] Address [address] [facility] [place] [address] Care Team Providers Care Floor Runner Name Role Phone Vitaliy Thomson MD Unavailable [phone] Vitaliy Thomson MD Primary Care Provider [phone] Fabiola Palumbo NP Unavailable Letty Newsome NP Unavailable [phone] Sima Paul RN Unavailable [phone] Encounter Details Date Type Department Care Team (Late st Contact Info) Description 10/24/2024 Abstract [facility] [address] [place] [address] Fabiola Palumbo NP [address] [place] [address] Social History Tobacco Use Types [...] Visit [facility] [address] [place] [address] Pwoer Swain DO [address] [place] [address] documented as of this encounter Visit Diagnoses Not on filedocumented in this encounter Additional Health Concerns Assessment Noted Time PHQ-9 Depression Total Score: 0 11/30/19 24 9:00 AM EST documented as of this encounter Care Teams Floor Runner Relationship Specialty Start Date End Date Vitaliy Thomson MD [address] [place] [address] PCP - ACO Reach 03/26/23 Vitaliy Thomson MD [address] [place] [place] [address] PCP - General Family Medicine 05/19/23 Fabiola Palumbo NP [address] [place] [address] Nurse Practitioner Family Medicine 05/19/23 01/19/25 Letty Newsome NP [address] [place] [address] Nurse Practitioner Pulmonary Disease 05/19/23 Sima Paul, LES Registered Nurse Family Medicine 08/24/23 documented as of this encounter
--- OUTSIDE RECORDS SUMMARY | 2025-04-02 13:25 | XMS_ITS ---
Author Organization [facility] Address [address] [place] [address] Care Team Providers Care Data Management Manager Name Role Phone Vitaliy Thomson MD Unavailable [phone] Vitaliy Thomson MD Primary Care Provider [phone] Letty Newsome DYEHOUSE WORKER Unavailable [phone] Sima Paul RN Unavailable [phone] Chronic Care Management (CCM) Status:Enrolled (Active) Start date:08/24/2023 Enrollment date:08/24/2023 Enrollment reason:Identified as high-risk Overview Addresses patients in need of care management services. 08/24/23, 10:00 AM - Sima Paul RN- Patient gives verbal consent to be enrolled in CCM Program and understands there could be a bill for this service. Case Team Name Relationship Phone Sima Paul RN(Responsible Staff) Melony Herbert [phone] Continued Care and Services Coordination
--- OUTSIDE RECORDS SUMMARY | 2025-04-02 13:25 | XMS_ITS | Encounter Summary ---
Author Organization [facility] Address [address] [place] [address] Care Team Providers Care Blanket Winder Helper Name Role Phone Vitaliy Thomson MD Unavailable [phone] Vitaliy Thomson MD Primary Care Provider [phone] Fabiola Palumbo NP Unavailable Letty Newsome ICT BUSINESS ANALYST Unavailable [phone] Sima Paul RN Unavailable [phone] Encounter Details Date Type Department Care Team (Late st Contact Info) Description 06/29/2024 Abstract [facility] [address] [place] [address] Fabiola Marinelli MD [address] [place] [address] Social History Tobacco Use Types [...] Office Visit [facility] [address] [place] [address] Power Swain DO [address] [place] [address] documented as of this encounter Visit Diagnoses Not on filedocumented in this encounter Additional Health Concerns Assessment Noted Time PHQ-9 Depression Total Score: 0 11/30/19 24 9:00 AM EST documented as of this encounter Care Teams Blanket Winder Helper Relationship Specialty Start Date End Date Vitaliy Thomson MD [address] [place] [address] PCP - ACO Reach 03/26/23 Vitaliy Thomson MD [address] [place] [address] PCP - General Family Medicine 05/19/23 Fabiola Palumbo NP [address] [place] [address] Nurse Practitioner Family Medicine 05/19/23 01/19/25 Letty Newsome NP [address] [place] [address] Nurse Practitioner Pulmonary Disease 05/19/23 Sima Paul, LES Registered Nurse Family Medicine 08/24/23 documented as of this encounter
--- OUTSIDE RECORDS SUMMARY | 2025-04-02 13:25 | XMS_ITS | Encounter Summary ---
Author Organization [facility] Address [address] [facility] [place] [address] Care Team Providers Care Lap Welder Name Role Phone Vitaliy Thomson MD Unavailable [phone] Vitaliy Thomson MD Primary Care Provider [phone] Fabiola Palumbo NP Unavailable Letty Newsome NP Unavailable [phone] Sima Paul RN Unavailable [phone] Encounter Details Date Type Department Care Team (Late st Contact Info) Description 04/21/2024 Orders Only [facility] [address] [place] [address] Fabiola Palumbo NP [address] [place] [address] Social History Tobacco Use Types Packs/Day [...] Office Visit [facility] [address] [place] [address] Power Swain DO [address] [place] [address] documented as of this encounter Procedures Procedure Name Priority Date/Time Associated Diagnosis Comments COMPREHENSIVE METABOLIC PANEL Routine 04/21/2024 3:31 PM EDT documented in this encounter Results * Comprehensive metabolic panel (04/21/2024 3:31 PM EDT) Blood Venous blood specimen / Unknown Fabiola Palumbo PULLEY WORKER LAB BLOOD ORDERABLES Final Resul t documented in this encounter Visit Diagnoses Not on filedocumented in this encounter Additional Health Concerns Assessment Noted Time PHQ-9 Depression Total Score: 0 11/30/19 24 9:00 AM EST documented as of this encounter Care Teams Lap Welder Relationship Specialty Start Date End Date Vitaliy Thomson MD [address] [place] [address] PCP - ACO Reach 03/26/23 Vitaliy Thomson MD [address] [place] [address] PCP - General Family Medicine 05/19/23 Fabiola Palumbo NP [address] [place] [address] Nurse Practitioner Family Medicine 05/19/23 01/19/25 Letty Newsome NP [address] [place] [address] Nurse Practitioner Pulmonary Disease 05/19/23 Sima Paul, LES Registered Nurse Family Medicine 08/24/23 documented as of this encounter
--- OUTSIDE RECORDS SUMMARY | 2025-04-02 13:25 | XMS_ITS | Encounter Summary ---
Author Organization [facility] Address [address] [facility] [place] [address] Care Team Providers Care Working Supervisor Name Role Phone Vitaliy Thomson MD Unavailable [phone] Vitaliy Thomson MD Primary Care Provider [phone] Fabiola Palumbo NP Unavailable Letty Newsome RAMP ATTENDANT Unavailable [phone] Sima Paul RN Unavailable [phone] Encounter Details Date Type Department Care Team (Late st Contact Info) Description 05/24/2024 Abstract [facility] [address] [place] [address] Vitaliy Thomson MD [address] [place] [address] Social History Tobacco Use Types [...] SEP [address] [place] [address] Power Swain DO [address] [place] [address] documented as of this encounter Visit Diagnoses Not on filedocumented in this encounter Additional Health Concerns Assessment Noted Time PHQ-9 Depression Total Score: 0 11/30/19 24 9:00 AM EST documented as of this encounter Care Teams Working Supervisor Relationship Specialty Start Date End Date Vitaliy Thomson MD [address] [place] [address] PCP - ACO Reach 03/26/23 Vitaliy Thomson MD [address] [place] [address] PCP - General Family Medicine 05/19/23 Fabiola Palumbo NP [address] [place] [address] Nurse Practitioner Family Medicine 05/19/23 01/19/25 Letty Newsome NP [address] [place] [address] Nurse Practitioner Pulmonary Disease 05/19/23 Sima Paul, LES Registered Nurse Family Medicine 08/24/23 documented as of this encounter
--- OUTSIDE RECORDS SUMMARY | 2025-04-02 13:25 | XMS_ITS | Encounter Summary ---
Author Organization [facility] Address [address] [place] [address] Care Team Providers Care Floral Designer Name Role Phone Yinka Thomson MD Unavailable [phone] Yinka Thomson MD Primary Care Provider [phone] Fabiola Palumbo NP Unavailable Ltety Newsome DOPE AND FABRIC WORKER Unavailable [phone] Sima Paul RN Unavailable [phone] Encounter Details Date Type Department Care Team (Late st Contact Info) Description 08/18/2024 Clinisync Result Encounter [facility] External Department Unsolicited Yinka Thomson MD [address] [place] [address] Social History Tobacco Use Types Packs/Day Years [...] Office Visit [facility] [address] [place] [address] Power Swain, DO [address] [place] [address] documented as of this encounter Procedures Procedure Name Priority Date/Time Associated Diagnosis Comments MM TOMOSYNTHESIS SCREENING BI 08/18/2024 3:19 PM EDT documented in this encounter Results * MM TOMOSYNTHESIS SCREENING BI (08/18/2024 3:19 PM EDT) Anatomical Region Laterality Modality Other 08/18/2024 3:19 PM EDT Narrative 08/18/2024 3:20 PM EDT [facility] [place] [id number] Mammography Report Signed Patient: MOJGAN PÉREZ MR#: [id number] : 1955 Acct:[id number] Age/Sex: 68 / F ADM Date: 08/18/24 Loc: MAMMO Attending Dr: YINKA THOMSON Ordering Physician: YINKA THOMSON Results: Date of Service: 08/18/24 Follow Up: Procedure(s): MM tomosynthesis screening BI Accession Number(s): [id number] cc: YINKA THOMSON Patient Name: MOJGAN PÉREZ MR#: [id number] : 1955 Exam Date: 08/18/2024 Ordering Doctor: [...] lung cancer at age 66. LOCATION: [facility] BREAST COMPOSITION: There are scattered areas of [...] Signed By: 08/18/24 1520 DD/ 1519 TD/TT: All Terrain Vehicle Racer: Procedure Note Radiology, Radiologist, MD - 08/18/2024 [facility] [place] [id number] Mammography Report Signed Patient: MOJGAN PÉREZ SMR#: [id number] : 1955cct:[id number] Age/Sex: 68 / FADM Date: 08/18/24 Loc: MAMMO Attending Dr: YINKA THOMSON Ordering Physician: YINKA THOMSONResults: Date of Service: 08/18/24Follow Up: Procedure(s): MM tomosynthesis screening BI Accession Number(s): [id number] cc: YINKA THOMSON Patient Name: MOJGAN PÉREZ MR#: [id number] : 1955 Exam Date: 08/18/2024 Ordering Doctor: [...] lung cancer at age 66. LOCATION: [facility] BREAST COMPOSITION: There are scattered areas of [...] M.D. Signed By:08/18/24 1520 DD/ 1519 TD/TT: All Terrain Vehicle Racer: Yinka Thomson MD [facility] Final Result documented in this encounter Visit Diagnoses Not on filedocumented in this encounter Additional Health Concerns Assessment Noted Time PHQ-9 Depression Total Score: 0 11/30/19 24 9:00 AM EST documented as of this encounter Care Teams Floral Designer Relationship Specialty Start Date End Date Yinka Thomson MD [address] [place] [address] PCP - ACO Reach 03/26/23 Yinka Thomson MD [address] [place] [address] PCP - General Family Medicine 05/19/23 Fabiola Palumbo NP [address] [place] [address] Nurse Practitioner Family Medicine 05/19/23 01/19/25 Letty Newsome NP [address] [place] [address] Nurse Practitioner Pulmonary Disease 05/19/23 Sima Paul, LES Registered Nurse Family Medicine 08/24/23 documented as of this encounter
--- OUTSIDE RECORDS SUMMARY | 2025-04-02 13:25 | XMS_ITS | Encounter Summary ---
Author Organization [facility] Address [address] [facility] [place] [address] Care Team Providers Care Flame Hardener Name Role Phone Vitaliy Thomson MD Unavailable [phone] Vitaliy Thomson MD Primary Care Provider [phone] Fabiola Palumbo NP Unavailable Letty Newsome OIL SPRAYING MACHINE OPERATOR Unavailable [phone] Sima Paul RN Unavailable [phone] Encounter Details Date Type Department Care Team (Late st Contact Info) Description 09/14/2024 Abstract [facility] [address] [place] [address] Letty Newsome, OIL SPRAYING MACHINE OPERATOR [address] [place] [address] Social History Tobacco Use Types [...] Visit [facility] [address] [place] [address] Power Swain DO [address] [place] [address] documented as of this encounter Visit Diagnoses Not on filedocumented in this encounter Additional Health Concerns Assessment Noted Time PHQ-9 Depression Total Score: 0 11/30/19 24 9:00 AM EST documented as of this encounter Care Teams Flame Hardener Relationship Specialty Start Date End Date Vitaliy Thomson MD [address] [place] [address] PCP - ACO Reach 03/26/23 Vitaliy Thomson MD [address] [place] [address] PCP - General Family Medicine 05/19/23 Fabiola Palumbo NP [address] [place] [address] Nurse Practitioner Family Medicine 05/19/23 01/19/25 Letty Newsome NP [address] [place] [address] Nurse Practitioner Pulmonary Disease 05/19/23 Sima Paul RN Registered Nurse Family Medicine 08/24/23 documented as of this encounter
--- OUTSIDE RECORDS SUMMARY | 2025-04-02 13:25 | XMS_ITS | Encounter Summary ---
Author Organization [facility] Address [address] [facility] [place] [address] Care Team Providers Care Supervisor Plastics Name Role Phone Vitaliy Thomson MD Unavailable [phone] Vitaliy Thomson MD Primary Care Provider [phone] Fabiola Palumbo NP Unavailable Letty Newsome CLOTH LAMINATING SUPERVISOR Unavailable [phone] Sima Paul RN Unavailable [phone] Encounter Details Date Type Department Care Team (Late st Contact Info) Description 01/05/2024 Abstract [facility] [address] [place] [address] Marcie Cota MA Social History Tobacco Use [...] Visit [facility] [address] [place] [address] Power Swain DO [address] [place] [address] documented as of this encounter Visit Diagnoses Not on filedocumented in this encounter Additional Health Concerns Assessment Noted Time PHQ-9 Depression Total Score: 0 11/30/19 24 9:00 AM EST documented as of this encounter Care Teams Supervisor Plastics Relationship Specialty Start Date End Date Vitaliy Thomson MD [address] [place] [address] PCP - ACO Reach 03/26/23 Vitaliy Thomson MD [address] [place] [address] PCP - General Family Medicine 05/19/23 Fabiola Palumbo NP [address] [place] [address] Nurse Practitioner Family Medicine 05/19/23 01/19/25 Letty Newsome NP [address] [place] [address] Nurse Practitioner Pulmonary Disease 05/19/23 Sima Paul, LES Registered Nurse Family Medicine 08/24/23 documented as of this encounter
--- OUTSIDE RECORDS SUMMARY | 2025-04-02 13:25 | XMS_ITS | Encounter Summary ---
Author Organization [facility] Address [address] [facility] [place] [address] Care Team Providers Care Manager Aerospace Name Role Phone Vitaliy Thomson MD Unavailable [phone] Vitaliy Thomson MD Primary Care Provider [phone] Fabiola Palumbo NP Unavailable Letty Newsome NP Unavailable [phone] Sima Paul RN Unavailable [phone] Encounter Details Date Type Department Care Team (Late st Contact Info) Description 01/25/2024 Abstract [facility] [address] [place] [address] Fabiola Palumbo NP [address] [place] [address] Social History Tobacco Use Types [...] Visit [facility] [address] [place] [address] Power Swain DO [address] [place] [address] documented as of this encounter Visit Diagnoses Not on filedocumented in this encounter Additional Health Concerns Assessment Noted Time PHQ-9 Depression Total Score: 0 11/30/19 9:00 AM EST documented as of this encounter Care Teams Manager Aerospace Relationship Specialty Start Date End Date Vitaliy Thomson MD [address] [place] [address] PCP - ACO Reach 03/26/23 Vitaliy Thomson MD [address] [address] PCP - General Family Medicine 05/19/23 Fabiola Palumbo NP [address] [place] [address] Nurse Practitioner Family Medicine 05/19/23 01/19/25 Letty Newsome NP [address] [place] [address] Nurse Practitioner Pulmonary Disease 05/19/23 Sima Paul, LES Registered Nurse Family Medicine 08/24/23 documented as of this encounter
--- OUTSIDE RECORDS SUMMARY | 2025-04-02 13:25 | XMS_ITS | Encounter Summary ---
Author Organization [facility] Address [address] [facility] [place] [address] Care Team Providers Care Registered Nurse Surgical Services Name Role Phone Vitaliy Thomson MD Unavailable [phone] Vitaliy Thomson MD Primary Care Provider [phone] Fabiola Palumbo NP Unavailable Letty Newsome HVAC DESIGN MECHANICAL ENGINEER Unavailable [phone] Sima Paul RN Unavailable [phone] Encounter Details Date Type Department Care Team (Late st Contact Info) Description 04/21/2024 Abstract [facility] [address] [place] [address] Vitaliy Thomson MD [address] [place] [address] Social History Tobacco Use Types [...] SEP [address] [place] [address] Power Swain DO [address] [place] [address] documented as of this encounter Visit Diagnoses Not on filedocumented in this encounter Additional Health Concerns Assessment Noted Time PHQ-9 Depression Total Score: 0 11/30/19 24 9:00 AM EST documented as of this encounter Care Teams Registered Nurse Surgical Services Relationship Specialty Start Date End Date Vitaliy Thomson MD [address] [place] [address] PCP - ACO Reach 03/26/23 Vitaliy Thomson MD [address] [place] [address] PCP - General Family Medicine 05/19/23 Fabiola Palumbo NP [address] [place] [address] Nurse Practitioner Family Medicine 05/19/23 01/19/25 Letty Newsome NP [address] [place] [address] Nurse Practitioner Pulmonary Disease 05/19/23 Sima Paul, LES Registered Nurse Family Medicine 08/24/23 documented as of this encounter
--- OUTSIDE RECORDS SUMMARY | 2025-04-02 13:25 | XMS_ITS | Encounter Summary ---
Author Organization [facility] Address [address] [facility] [place] [address] Care Team Providers Care Extrusion Press Supervisor Name Role Phone Vitaliy Thomson MD Unavailable [phone] Vitaliy Thomson MD Primary Care Provider [phone] Fabiola Palumbo NP Unavailable Letty Newsome NP Unavailable [phone] Sima Paul RN Unavailable [phone] Encounter Details Date Type Department Care Team (Late st Contact Info) Description 04/13/2024 Abstract [facility] [address] [place] [address] Fabiola Palumbo NP [address] [place] [address] Social History Tobacco Use Types [...] Visit [facility] [address] [place] [address] Power Swain DO [address] [place] [address] documented as of this encounter Visit Diagnoses Not on filedocumented in this encounter Additional Health Concerns Assessment Noted Time PHQ-9 Depression Total Score: 0 11/30/19 24 9:00 AM EST documented as of this encounter Care Teams Extrusion Press Supervisor Relationship Specialty Start Date End Date Vitaliy Thomson MD [address] [place] [address] PCP - ACO Reach 03/26/23 Vitaliy Thomson MD [address] [place] [address] PCP - General Family Medicine 05/19/23 Fabiola Palumbo NP [address] [place] [address] Nurse Practitioner Family Medicine 05/19/23 01/19/25 Letty Newsome NP [address] [place] [address] Nurse Practitioner Pulmonary Disease 05/19/23 Sima Paul, LES Registered Nurse Family Medicine 08/24/23 documented as of this encounter
--- OUTSIDE RECORDS SUMMARY | 2025-04-02 13:25 | XMS_ITS | Encounter Summary ---
Author Organization [facility] Address [address] [facility] [address] Care Team Providers Care International Sales Manager Name Role Phone Vitaliy Thomson MD Unavailable [phone] Vitaliy Thomson MD Primary Care Provider [phone] Fabiola Palumbo NP Unavailable Letty Newsome NP Unavailable [phone] Sima Paul RN Unavailable [phone] Encounter Details Date Type Department Care Team (Late st Contact Info) Description 09/14/2024 Abstract [facility] [address] [place] [address] Fabiola Palumbo NP [address] [place] [address] Social History Tobacco Use Types [...] Visit [facility] [address] [place] [address] Power Swain DO [address] [place] [address] documented as of this encounter Visit Diagnoses Not on filedocumented in this encounter Additional Health Concerns Assessment Noted Time PHQ-9 Depression Total Score: 0 11/30/19 24 9:00 AM EST documented as of this encounter Care Teams International Sales Manager Relationship Specialty Start Date End Date Vitaliy Thomson MD [address] [place] [address] PCP - ACO Reach 03/26/23 Vitaliy Thomson MD [address] [place] [address] PCP - General Family Medicine 05/19/23 Fabiola Palumbo NP [address] [place] [address] Nurse Practitioner Family Medicine 05/19/23 01/19/25 Letty Newsome NP [address] [place] [address] Nurse Practitioner Pulmonary Disease 05/19/23 Sima Paul, LES Registered Nurse Family Medicine 08/24/23 documented as of this encounter
--- OUTSIDE RECORDS SUMMARY | 2025-04-02 13:25 | XMS_ITS | Encounter Summary ---
Author Organization [facility] Address [address] [facility] [place] [address] Care Team Providers Care Creative Recruiter Name Role Phone Vitaliy Thomson MD Unavailable [phone] Vitaliy Thomson MD Primary Care Provider [phone] Fabiola Palumbo NP Unavailable Letty Newsome NP Unavailable [phone] Sima Paul RN Unavailable [phone] Encounter Details Date Type Department Care Team (Late st Contact Info) Description 01/23/2024 Abstract [facility] [address] [place] [address] Fabiola Palumbo NP [address] [place] [address] Social History Tobacco Use Types [...] Visit [facility] [address] [place] [address] Power Swain DO [address] [place] [address] documented as of this encounter Visit Diagnoses Not on filedocumented in this encounter Additional Health Concerns Assessment Noted Time PHQ-9 Depression Total Score: 0 11/30/19 9:00 AM EST documented as of this encounter Care Teams Creative Recruiter Relationship Specialty Start Date End Date Vitaliy Thomson MD [address] [place] [address] PCP - ACO Reach 03/26/23 Vitaliy Thomson MD [address] [place] [address] PCP - General Family Medicine 05/19/23 Fabiola Palumbo NP [address] [place] [address] Nurse Practitioner Family Medicine 05/19/23 01/19/25 Letty Newsome NP [address] [place] [address] Nurse Practitioner Pulmonary Disease 05/19/23 Sima Paul, LES Registered Nurse Family Medicine 08/24/23 documented as of this encounter
--- OUTSIDE RECORDS SUMMARY | 2025-04-02 13:26 | XMS_ITS | Encounter Summary ---
Author Organization [facility] Address [address] [place] [address] Care Team Providers Care Burial Vault Maker Name Role Phone Vitaliy Thomson MD Unavailable [phone] Vitaliy Thomson MD Primary Care Provider [phone] Fabiola Palumbo NP Unavailable Letty Newsome LAMP SHADE SEWER Unavailable [phone] Sima Paul RN Unavailable [phone] Encounter Details Date Type Department Care Team (Late st Contact Info) Description 01/25/2024 External Result Encounter [facility] External Department Unsolicited Fabiola Marinelli MD [address] [place] [address] Social History Tobacco Use Types Packs/Day Years [...] 05/26/2025 10:20 AM EDT Office Visit [facility] [address] [place] [address] Power Swain, [address] [place] [address] documented as of this encounter Procedures Procedure Name Priority Date/Time Associated Diagnosis Comments CT SINUS WO 01/25/2024 6:07 PM EDT documented in this encounter Results * CT SINUS WO IV CONTRAST (01/25/2024 6:07 PM EDT) Anatomical Region Laterality Modality Head, Neck Computed Tomogra phy 01/25/2024 6:07 PM EDT Impressions 01/25/2024 6:17 PM EDT IMPRESSION: PANSINUSITIS. NO AGGRESSIVE FEATURES. Impression dictated by: Carroll Sparrow Jr., D.O.01/25/2024 6:14 PM Dictation Location: [place] [address] Transcribed By: [facility] 01/25/241813 Dictated By: Carroll Sparrow Jr, DO 01/25/241806 Signed By: <Electronically signed by Carroll Sparrow Jr, DO in OV> 01/25/24 181 Narrative 01/25/2024 6:17 PM EDT [facility] Main [address] [address] [address] Scan Report Signed Patient: Mojgan Sndier MR#: [id number] 890 : 1955 Acct:[id number] Age/Sex: 68 / F ADM Date: 01/25/24 Loc: 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 Coronal reconstructions were also performed. This CT exam was performed using one or more following dose reduction techniques: Automated exposure control, adjustment of the mA and/or kV according to patient size, or use of iterative reconstruction technique. FINDINGS: Frontal sinuses are clear. There is mild thickening of the ethmoid sinuses. Moderate Right sphenoid sinus disease. The left sphenoid sinus appears clear. There is moderate mucoperiosteal thickening involving the maxillary sinuses bilaterally with occlusion of the ostiomeatal complexes. No bony destruction or air-fluid levels are identified. Mastoid air cells are well pneumatized. Nasal septum is slightly deviated towards the right. Intraorbital contents appear grossly unremarkable. No soft tissue swelling is seen. Nasopharynx appears grossly unremarkable. CT/CT sinus wo con Procedure Note Radiology, Radiologist, - 01/25/2024 [facility] Main [place] [address] [place] [address] CT Scan Report Signed Patient: Mojgan Snider [facility]#: [id number] : 7Acct:[id number] Age/Sex: 68 / FADM Date: 01/25/24 Loc: Room:Type: [facility] Attending Dr: Fabiola Marinelli MD Copies to: Fabiola Marinelli MD Ordering Provider: Fabiola Marinelli MD Date of Service: 01/25/24 CT/CT sinus wo con: D84.9 - Immunodeficiency,unspecified CT PARANASAL SINUSES WITHOUT CONTRAST: CLINICAL HISTORY: Cough and congestion for one month COMPARISON: None TECHNIQUE: Contiguous axial unenhanced images were obtained through theparanasal sinuses. Coronal reconstructions were also performed. This CT exam was performed using oneor more following dose reduction techniques: Automated exposure control, adjustment of the mAand/or kV according to patient size, or use of iterative reconstruction technique. FINDINGS: Frontal sinuses are clear. There is mild thickening of theethmoid sinuses. Moderate Right sphenoid sinus disease. The left sphenoid sinus appears clear.There is moderate mucoperiosteal thickening involving the maxillary sinuses bilaterally withocclusion of the ostiomeatal complexes. No bony destruction or air-fluid levels areidentified. Mastoid air cells are well pneumatized. Nasal septum is slightly deviated towards theright. Intraorbital contents appear grossly unremarkable. No soft tissue swelling is seen.Nasopharynx appears grossly unremarkable. CT/CT sinus wo con IMPRESSION: IMPRESSION: PANSINUSITIS. NO AGGRESSIVE FEATURES. Impression dictated by: Carroll Sparrow Jr., D.OErna01/25/2024 6:14 PM Dictation Location: [facility] Transcribed By: [facility] 01/25/241813 Dictated By: Carroll Sparrow Jr, DO 01/25/24 180 Signed By: <Electronically signed by Carroll Sparrow Jr, DO inOV> 01/25/24 181 Fabiola Marinelli MD IMG CT PROCEDURES Final Result documented in this encounter Visit Diagnoses Not on filedocumented in this encounter Additional Health Concerns Assessment Noted Time PHQ-9 Depression Total Score: 0 11/30/19 24 9:00 AM EST documented as of this encounter Care Teams Burial Vault Maker Relationship Specialty Start Date End Date Vitaliy Thomson MD [address] [place] [address] PCP - ACO Reach 03/26/23 Vitaliy Thomson MD [address] [place] [address] PCP - General Family Medicine 05/19/23 Fabiola Palumbo NP [address] [place] [address] Nurse Practitioner Family Medicine 05/19/23 01/19/25 Letty Newsome NP [address] [place] [address] Nurse Practitioner Pulmonary Disease 05/19/23 Sima Paul, RN Registered Nurse Family Medicine 08/24/23 documented as of this encounter
--- OUTSIDE RECORDS SUMMARY | 2025-04-02 13:26 | XMS_ITS | Encounter Summary ---
Author Organization [facility] Address [address] [facility] [place] [address] Care Team Providers Care Director Of Infection Control Name Role Phone Vitaliy Thomson MD Unavailable [phone] Vitaliy Thomson MD Primary Care Provider [phone] Fabiola Palumbo NP Unavailable Letty Newsome NP Unavailable [phone] Sima Paul RN Unavailable [phone] Encounter Details Date Type Department Care Team (Late st Contact Info) Description 03/21/2024 Abstract [facility] [address] [place] [address] Fabiola Palumbo NP [address] [place] [address] Social History Tobacco Use Types [...] [facility] [address] [place] [address] Power Swain DO [address] [place] [address] documented as of this encounter Visit Diagnoses Not on filedocumented in this encounter Additional Health Concerns Assessment Noted Time PHQ-9 Depression Total Score: 0 11/30/19 9:00 AM EST documented as of this encounter Care Teams Director Of Infection Control Relationship Specialty Start Date End Date Vitaliy Thomson MD [address] [place] [address] PCP - ACO Reach 03/26/23 Vitaliy Thomson MD [address] [place] [address] PCP - General Family Medicine 05/19/23 Fabiola Palumbo NP [address] [place] [address] Nurse Practitioner Family Medicine 05/19/23 01/19/25 Letty Newsome NP [address] [place] [address] Nurse Practitioner Pulmonary Disease 05/19/23 Sima Paul, LES Registered Nurse Family Medicine 08/24/23 documented as of this encounter
--- OUTSIDE RECORDS SUMMARY | 2025-04-02 13:26 | XMS_ITS | Encounter Summary ---
Author Organization [facility] Address [address] [facility] [place] [address] Care Team Providers Care Box Liner Name Role Phone Vitaliy Thomson MD Unavailable [phone] Vitaliy Thomson MD Primary Care Provider [phone] Fabiola Palumbo NP Unavailable Letty Newsome NP Unavailable [phone] Sima Paul RN Unavailable [phone] Encounter Details Date Type Department Care Team (Late st Contact Info) Description 03/24/2024 Abstract [facility] [address] [place] [address] Fabiola Palumbo NP [address] [place] [address] Social History Tobacco Use Types [...] Visit [facility] [address] [place] [address] Power Swain DO [address] [place] [address] documented as of this encounter Visit Diagnoses Not on filedocumented in this encounter Additional Health Concerns Assessment Noted Time PHQ-9 Depression Total Score: 0 11/30/19 9:00 AM EST documented as of this encounter Care Teams Box Liner Relationship Specialty Start Date End Date Vitaliy Thomson MD [address] [place] [address] PCP - ACO Reach 03/26/23 Vitaliy Thomson MD [address] [place] [address] PCP - General Family Medicine 05/19/23 Fabiola Palumbo NP [address] [place] [address] Nurse Practitioner Family Medicine 05/19/23 01/19/25 Letty Newsome NP [address] [place] [address] Nurse Practitioner Pulmonary Disease 05/19/23 Sima Paul, LES Registered Nurse Family Medicine 08/24/23 documented as of this encounter
--- OUTSIDE RECORDS SUMMARY | 2025-04-02 13:26 | XMS_ITS | Encounter Summary ---
Author Organization [facility] Address [address] [place] [address] Care Team Providers Care Provider Scribe Name Role Phone Vitaliy Thomson MD Unavailable [phone] Vitaliy Thomson MD Primary Care Provider [phone] Fabiola Palumbo NP Unavailable Letty Newsome INBOUND CALL CENTER REPRESENTATIVE Unavailable [phone] Sima Paul RN Unavailable [phone] Encounter Details Date Type Department Care Team (Late st Contact Info) Description 01/25/2024 External Result Encounter [facility] External Department Unsolicited Fabiola Marinelli MD [address] [place] [address] Social History Tobacco Use Types Packs/Day Years [...] Office Visit [facility] [address] [place] [address] Power Swain, [address] [place] [address] documented as of this encounter Procedures Procedure Name Priority Date/Time Associated Diagnosis Comments CT CHEST W IV CONTRAST 01/25/2024 6:23 PM EDT documented in this encounter Results * CT chest w IV contrast (01/25/2024 6:23 PM EDT) Anatomical Region Laterality Modality Body, Chest Computed Tomogra phy 01/25/2024 6:23 PM EDT Impressions 01/25/2024 6:26 PM EDT No acute process. Partially visualized cirrhotic liver with likely splenomegaly. Impression dictated by: Carroll Sparrow Jr., D.O.01/25/2024 6:24 PM Dictation Location: [place] [address] Transcribed By: [facility] 01/25/241823 Dictated By: Carroll Sparrow Jr, DO 01/25/241822 Signed By: <Electronically signed by Carroll Sparrow Jr, DO in OV> 01/25/24 182 Narrative 01/25/2024 6:26 PM EDT [facility] Main [address] [address] [address] Scan Report Signed Patient: Mojgan Snider MR#: [id number] 890 : 1955 Acct:[id number] Age/Sex: 68 / F ADM Date: 01/25/24 Loc: Room: Type: [facility] Attending Dr: Fabiola Marinelli MD Copies to: Fabiola Marinelli MD Ordering Provider: Fabiola Marinelli MD Date of Service: 01/25/24 CT/CT chest w con: 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 This CT exam was performed using one or more following dose reduction techniques: Automated exposure control, adjustment of the mA and/or kV according to patient size, or use of iterative reconstruction technique. FINDINGS: Mediastinum:Right-sided port is in place. Thoracic aorta appears normal in caliber. Pulmonary trunk appears nondilated. No pericardial effusion. No lymphadenopathy. The esophagus is grossly unremarkable. Lungs:Mild lung scarring. No consolidation pneumothorax or pleural effusion. Abd:Partially visualized cirrhotic liver. Likely splenomegaly. Splenic granulomas. Soft tissues/Bones: Soft tissues surrounding the chest wall demonstrate no acute findings. Osseous structures demonstrate degenerative change. CT/CT chest w con Procedure Note Radiology, Radiologist, - 01/25/2024 [facility] Main [place] [address] [place] [address] CT Scan Report Signed Patient: Mojgan Snider SMR#: [id number] 890 : 7Acct:[id number] Age/Sex: 68 / FADM Date: 01/25/24 Loc: XT Room:Type: [facility] Attending Dr: Fabiola Marinelli MD Copies to: Fabiola Marinelli MD Ordering Provider: Fabiola Marinelli MD Date of Service: 01/25/24 CT/CT chest w con: D84.9 - Immunodeficiency,unspecified CT CHEST WITH INTRAVENOUS CONTRAST: CLINICAL HISTORY: Cough and congestion for one month COMPARISON: Chest 01/21/2024 TECHNIQUE: Spiral images were obtained through the chest followingintravenous administration of IV contrast. This CT exam was performed using one or more following dosereduction techniques: Automated exposure control, adjustment of the mA and/or kV according topatient size, or use of iterative reconstruction technique. FINDINGS: Mediastinum:Right-sided port is in place. Thoracic aorta appears normalin caliber. Pulmonary trunk appears nondilated. No pericardial effusion. No lymphadenopathy.The esophagus is grossly unremarkable. Lungs:Mild lung scarring. No consolidation pneumothorax or pleuraleffusion. Abd:Partially visualized cirrhotic liver. Likely splenomegaly. Splenicgranulomas. Soft tissues/Bones: Soft tissues surrounding the chest wall demonstrate noacute findings. Osseous structures demonstrate degenerative change. CT/CT chest w con IMPRESSION: No acute process. Partially visualized cirrhotic liver with likely splenomegaly. Impression dictated by: Carroll Sparrow Jr., D.O.01/25/2024 6:24 PM Dictation Location: [facility] Transcribed By: [facility] 01/25/241823 Dictated By: Carroll Sparrow Jr, DO 01/25/241822 Signed By: <Electronically signed by Carroll Sparrow Jr, DO inOV> 01/25/241823 Fabiola Marinelli MD IMG CT PROCEDURES Final Result documented in this encounter Visit Diagnoses Not on filedocumented in this encounter Additional Health Concerns Assessment Noted Time PHQ-9 Depression Total Score: 0 11/30/19 9:00 AM EST documented as of this encounter Care Teams Provider Scribe Relationship Specialty Start Date End Date Vitaliy Thomson MD [address] [place] [address] PCP - ACO Reach 03/26/23 Vitaliy Thomson MD [address] [place] [address] PCP - General Family Medicine 05/19/23 Fabiola Palumbo NP [address] [place] [address] Nurse Practitioner Family Medicine 05/19/23 01/19/25 Letty Newsome NP [address] [place] [address] Nurse Practitioner Pulmonary Disease 05/19/23 Sima Paul RN Registered Nurse Family Medicine 08/24/23 documented as of this encounter
--- OUTSIDE RECORDS SUMMARY | 2025-04-02 13:26 | XMS_ITS | Encounter Summary ---
Author Organization [facility] Address [address] [facility] [place] [address] Care Team Providers Care Compensation/Benefits Specialist Name Role Phone Vitaliy Thomson MD Unavailable [phone] Vitaliy Thomson MD Primary Care Provider [phone] Fabiola Palumbo NP Unavailable Letty Newsome NP Unavailable [phone] Sima Paul RN Unavailable [phone] Encounter Details Date Type Department Care Team (Late st Contact Info) Description 03/21/2024 Abstract [facility] [address] [place] [address] Fabiola Palumbo NP [address] [place] [address] Social History Tobacco Use Types [...] Visit [facility] [address] [place] [address] Power Swain DO [address] [place] [address] documented as of this encounter Visit Diagnoses Not on filedocumented in this encounter Additional Health Concerns Assessment Noted Time PHQ-9 Depression Total Score: 0 11/30/19 9:00 AM EST documented as of this encounter Care Teams Compensation/Benefits Specialist Relationship Specialty Start Date End Date Vitaliy Thomson MD [address] [place] [address] PCP - ACO Reach 03/26/23 Vitaliy Thomson MD [address] [place] [address] PCP - General Family Medicine 05/19/23 Fabiola Palumbo NP [address] [place] [address] Nurse Practitioner Family Medicine 05/19/23 01/19/25 Letty Newsome NP [address] [place] [address] Nurse Practitioner Pulmonary Disease 05/19/23 Sima Paul, LES Registered Nurse Family Medicine 08/24/23 documented as of this encounter
--- OUTSIDE RECORDS SUMMARY | 2025-04-02 13:26 | XMS_ITS | Encounter Summary ---
Author Organization [facility] Address [address] [facility] [place] [address] Care Team Providers Care Patient Support Partner Name Role Phone Vitaliy Thomson MD Unavailable [phone] Vitaliy Thomson MD Primary Care Provider [phone] Fabiola Palumbo NP Unavailable Letty Newsome WEIGHT YARDAGE CHECKER Unavailable [phone] Sima Paul RN Unavailable [phone] Encounter Details Date Type Department Care Team (Late st Contact Info) Description 02/22/2024 Abstract [facility] [address] [place] [address] Vitaliy Thomson MD [address] [place] [address] Social History Tobacco Use Types [...] SEP [address] [place] [address] Power Swain DO [address] [place] [address] documented as of this encounter Visit Diagnoses Not on filedocumented in this encounter Additional Health Concerns Assessment Noted Time PHQ-9 Depression Total Score: 0 11/30/19 9:00 AM EST documented as of this encounter Care Teams Patient Support Partner Relationship Specialty Start Date End Date Vitaliy Thomson MD [address] [place] [address] PCP - ACO Reach 03/26/23 Vitaliy Thomson MD [address] [place] [address] PCP - General Family Medicine 05/19/23 Fabiola Palumbo NP [address] [place] [address] Nurse Practitioner Family Medicine 05/19/23 01/19/25 Letty Newsome NP [address] [place] [address] Nurse Practitioner Pulmonary Disease 05/19/23 Sima Paul, LES Registered Nurse Family Medicine 08/24/23 documented as of this encounter
--- NOTE | 2025-04-02 13:35 | XR_ITS ---
The [address] [address] Patient Name: NANNETTE PÉREZ MRN: [id number] date: 1955 Sex: F Assigned Patient Location: ER Current Patient Location: ER Accession/Order Number: [id number] Exam Date: 04/02/2025 13:54 Report Date: 04/02/2025 13:57 At the request of: LAKEISHA NOBLE Procedure: XR ribs LT min 3V w CXR1V Left Rib series with Single View Chest HISTORY: Left rib pain. Fell. COMPARISON: 10/22/2022 MEDIASTINUM: Cardiac, mediastinal hilar silhouettes are within normal limits. LUNGS AND PLEURA: No acute lung process, pleural effusion or pneumothorax identified. ACUTE FINDINGS: No displaced rib fracture identified. DEGENERATIVE CHANGE: Unremarkable SOFT TISSUE: Unremarkable POSTOP CHANGES: Zwctio-k-Ofrl unchanged XR/XR ribs LT min 3V w CXR1V IMPRESSION: No displaced rib fracture. No acute chest findings. Impression dictated by: Jorge Duffy M.D. 04/02/2025 1:57 PM Dictation Location: [place] [address] Electronically authenticated by: [id number] Y Date: 04/02/2025 13:57
--- NOTE | 2025-04-02 13:36 | ED_ITS ---
HPI HPI - General Adult General Chief complaint: Chest Pain Stated complaint: RIB PAIN Time Seen by Provider: 04/02/25 13:24 Source: patient Mode of arrival: walk-in Limitations: no limitations History of Present Illness HPI narrative: 69-year-old female presents to the emergency department with complaint of left rib pain. Locating pain under her secondary to injury after she somehow rolling out of bed, hitting her chest on a nearby stand. Does not appreciate much tenderness, but pain worsens when she takes a deep breath. Denies any other injury, shortness of breath. Took a Percocet, 5 mg prior to arrival. Quality:?as above Severity:?moderate Timing:?as above, constant Context: Normal setting and activity? Modifying factors:?as above Associated symptoms: none Related Data Previous Rx's ?Medication ?Instructions ?Recorded lidocaine 5 % topical patch 1 patch topical Q24H PRN r ib pain 04/02/25 (Lidoderm) #15 ea Allergies Allergy/AdvReac Type Severity Reaction Status Date / Time Unable to Assess Allergy Verified 04/02/25 13:29 Opioid HPI Opioid Management Most Recent Opioid Data: Last Pain Scale 8 Today, 13:24 Review of Systems ROS Narrative CONST: Denies activity change, weakness Respiratory: Denies shortness of breath, cough MS: Denies arthralgias, myalgias SKIN: Denies color change, wound NEURO: Denies numbness, paresthesias, weakness PFSH PFSH Social History Little interest or pleasure in doing things: not at all Feeling down, depressed, or hopeless: not at all Exam Narrative Exam Narrative: Vital signs reviewed Nurses notes noted CONST: Nontoxic, well appearing, well nourished, in no distress.? No diaphoresis.?? HENT: normocephalic, atraumatic, moist mucous membrane, no abnormalities of the nose noted, hearing normal CV: normal rate, regular rhythm, no murmur RESP: normal effort, speaking in complete sentences. Lung sounds clear and equal bilat.? No wheezes, rales, rhonchi CHEST: Located pain diffusely anteriorly to the ribs underneath her left breast. Nontender. No swelling, ecchymosis, discoloration, crepitus, deformity, instability, warmth. GI: soft, no distension, nontender MS: no edema, tenderness SKIN: no pallor, bruising NEURO: A&Ox 3, no focal findings PSYCH: normal mood, affect Constitutional Vital Signs, click to edit/add: Last Vital Signs Temp 98.6 F 04/02/25 13:24 Pulse 80 04/02/25 13:24 Resp 16 04/02/25 13:24 BP 106/66 04/02/25 13:24 Pulse Ox 96 04/02/25 13:24 O2 Del Method Room Air 04/02/25 13:24 Course Vital Signs Vital signs: Vital Signs Temperature 98.6 F 04/02/25 13:24 Pulse Rate 80 04/02/25 13:24 Respiratory Rate 16 04/02/25 13:24 Blood Pressure 106/66 04/02/25 13:24 Pulse Oximetry 96 04/02/25 13:24 Oxygen Delivery Method Room Air 04/02/25 13:24 Temperature 98.6 F 04/02/25 13:24 Pulse Rate 80 04/02/25 13:24 Respiratory Rate 16 04/02/25 13:24 Blood Pressure 106/66 04/02/25 13:24 Pulse Oximetry 96 04/02/25 13:24 Oxygen Delivery Method Room Air 04/02/25 13:24 Medical Decision Making [facility] Narrative Medical decision making narrative: This is a pleasant who presents to the emergency department for evaluation of left rib injury On arrival, afebrile, vitals stable Exam, nontoxic, well-appearing patient in no distress. Locating pain to the anterior left ribs just below her left breast. Nontender. Only experiencing pain with deep breath. No swelling, ecchymosis, discoloration, crepitus, deformity, instability, warmth. No abdominal tenderness Left rib and chest x-ray, per radiologist reveals: IMPRESSION: No displaced rib fracture. No acute chest findings. Impression dictated by: Jorge Duffy M.D. 04/02/2025 1:57 PM Favor rib contusion Fracture, pneumothorax less likely based on imaging Intra-abdominal pathology, trauma less likely based on physical exam History and Record Review Discussion with independent historian: Daughter Additional records reviewed: No records Diagnostic testing considered but not performed: CT chest. Stable vital signs. Not hypoxic. Disposition ? The patient was discharged. Prescriptions sent to pharmacy: Lidoderm Plan: Patient will be discharged to home.? Condition at time of disposition: stable.? Advised to follow up with primary provider. Advised to return for any worsening and/or development of new, concerning signs or symptoms PLEASE NOTE: Portions of the medical record may have been produced using electronic linen room custodian and may contain errors with respect to translation of words which may not have been identified prior to finalization of the chart. Imaging Data Chest x-ray: Radiologist's impression: ITS Impressions Ribs X-Ray 04/02/25 13:35 IMPRESSION: No displaced rib fracture. No acute chest findings. Impression dictated by: Jorge Duffy M.D. 04/02/2025 1:57 PM Dictation Location: [facility] Electronically authenticated by: [id number] Y Date: 04/02/2025 13:57 Discharge Plan Discharge Chief Complaint: Chest Pain Clinical Impression: Anterior chest wall pain Chest wall contusion Qualifiers: Encounter type: initial encounter Laterality: left Qualified Code(s): S20.212A - Contusion of left front wall of thorax, initial encounter Patient Disposition: Home, Self-Care Time of Disposition Decision: 14:25 Condition: Good Mode of Transportation: Private Vehicle Prescriptions / Home Meds: New lidocaine [Lidoderm] 5 % adhesive patch,medicated 1 patch topical Q24H PRN (Reason: rib pain) Qty: 15 0RF Rx Instructions: leave on most painful area for up to 12 hrs Print Language: Telugu Instructions: Chest Wall Pain (ED), Chest Contusion (ED) Referrals: Letty Newsome VEGETABLE HARVEST MACHINE OPERATOR [Primary Care Provider] - 1 week
[2025-04-02] MEDS: IBUPROFEN 600 MG TABLET PO (14:29)
[2025-04-02 15:00] VITALS: PULSE 75; O2SAT 96
== END 2025-04-02 15:02 | disposition home or self-care (01) ==
PROVIDERS: Emergency Provider Emergency Medicine; PCP Nurse Practitioner
DX: S20.212A Contusion of left front wall of thorax, initial encounter (principal); W06.XXXA Fall from bed, initial encounter; W22.03XA Walked into furniture, initial encounter; R07.89 Other chest pain
CPT/HCPCS: 71101; 94667; 99283

== ENCOUNTER 2025-07-19 17:11 | Emergency (ER) | payer MEDICARE, MEDICAID, SELFPAY ==
[2025-07-19 17:15] VITALS: BP 104/68; PULSE 88; TEMP 37.2; O2SAT 97; BMI 34.4
--- OUTSIDE RECORDS SUMMARY | 2025-07-19 17:39 | XMS_ITS | Encounter Summary ---
Author Organization [facility] Address [address] [place] [address] Care Team Providers Care Security Guard Name Role Phone Vitaliy Thomson MD Unavailable [phone] Vitaliy Thomson MD Primary Care Provider [phone] Fabiola Palumbo NP Unavailable Letty Newsome ADMINISTRATIVE RESOURCES ASSOCIATE Unavailable [phone] Sima Paul RN Unavailable [phone] Power Swain DO Primary Care Provider [phone] Power Swain DO Primary Care Provider [phone] Encounter Details Date Type Department Care Team (Late st Contact Info) Description 10/21/2023 Abstract [facility] [address] [place] [address] Vitaliy Thomson MD [address] [place] [address] Social History Tobacco Use Types Packs/Day Years [...] Care Team (Late st Contact Info) Description 2025 10:00 AM EST Office Visit [facility] [address] [place] [address] Power Swain DO [address] [facility] [address] [place] [address] documented as of this encounter Visit Diagnoses Not on filedocumented in this encounter Care Teams Security Guard Relationship Specialty Start Date End Date Vitaliy Thomson MD [address] [place] [id number] PCP - ACO Reach 03/26/23 Vitaliy Thomson MD [address] [place] [address] PCP - General Family Medicine 05/19/23 04/17/[address] [place] [address] [place] [address] PCP - General Family Medicine 04/18/25 04/24/25 Power Swain DO [address] [facility] [address] [place] [address] PCP - General Family Medicine 04/25/25 Fabiola Palumbo NP [address] [place] [address] Nurse Practitioner Family Medicine 05/19/23 01/19/25 Letty Newsome NP [address] [place] [address] Nurse Practitioner Pulmonary Disease 05/19/23 04/17/25 Sima Paul, LES [address] [place] [address] Registered Nurse Family Medicine 08/24/23 documented as of this encounter
--- OUTSIDE RECORDS SUMMARY | 2025-07-19 17:40 | XMS_ITS | Encounter Summary ---
Author Organization [facility] Address [address] [facility] [place] [address] Care Team Providers Care Ultrasonographer Name Role Phone Vitaliy Thomson MD Unavailable [phone] Vitaliy Thomson MD Primary Care Provider [phone] Fabiola Palumbo NP Unavailable Letty Newsome LEARNING ENGINEER Unavailable [phone] Sima Paul RN Unavailable [phone] Power Swain DO Primary Care Provider [phone] Power Swain DO Primary Care Provider [phone] Encounter Details Date Type Department Care Team (Late st Contact Info) Description 12/18/2023 Abstract [facility] [address] [place] [address] Marcie Cota MA Social History Tobacco Use [...] Description 2025 10:00 AM EST Office Visit [facility] [address], [address] [place] [address] Power Swain DO [address] [place] [address] documented as of this encounter Visit Diagnoses Not on filedocumented in this encounter Additional Health Concerns Assessment Noted Time PHQ-9 Depression Total Score: 0 11/30/19 9:00 AM EST documented as of this encounter Care Teams Ultrasonographer Relationship Specialty Start Date End Date Vitlaiy Thomson MD [address] [place] [address] PCP - ACO Reach 03/26/23 Vitaliy Thomson MD [address] [place] [address] PCP - General Family Medicine 05/19/23 04/17/[address] [place] [address] [place] [address] PCP - General Family Medicine 04/18/25 04/24/25 Power Swain DO [address] [place] [address] PCP - General Family Medicine 04/25/25 Fabiola Palumbo, LEARNING ENGINEER [address] [place] [address] Nurse Practitioner Family Medicine 05/19/23 01/19/25 Letty Newsome NP [address] [place] [address] Nurse Practitioner Pulmonary Disease 05/19/23 04/17/25 Sima Paul, RN [address] [place] [address] Registered Nurse Family Medicine 08/24/23 documented as of this encounter
--- OUTSIDE RECORDS SUMMARY | 2025-07-19 17:40 | XMS_ITS | Encounter Summary ---
Author Organization [facility] Address [address] [facility] [place] [address] Care Team Providers Care Barrel Tester Name Role Phone Vitaliy Thomson MD Unavailable [phone] Vitaliy Thomson MD Primary Care Provider [phone] Letty Newsome NP Unavailable [phone] Sima Paul RN Unavailable [phone] Power Swain DO Primary Care Provider [phone] Power Swain DO Primary Care Provider [phone] Encounter Details Date Type Department Care Team (Late st Contact Info) Description 03/16/2025 Abstract [facility] [address] [place] [address] Letty Newsome AIR DEFENSE ARTILLERY SENIOR SERGEANT [address] [place] [address] Social History Tobacco Use Types Packs/Day Years [...] [address], [address] [place] [address] Power Swain DO [address] [email or web address] [address] [place] [address] documented as of this encounter Visit Diagnoses Not on filedocumented in this encounter Additional Health Concerns Assessment Noted Time PHQ-9 Depression Total Score: 0 11/30/19 24 9:00 AM EST documented as of this encounter Care Teams Barrel Tester Relationship Specialty Start Date End Date Vitaliy Thomson MD [address] [place] [address] PCP - ACO Reach 03/26/23 Vitaliy Thomson MD [address] [place] [address] PCP - General Family Medicine 05/19/23 04/17/25 Power Swain DO [address] [place] [address] PCP - General Family Medicine 04/18/25 04/24/25 Power Swain DO [address] [facility] [[email or web address] [address] [place] [address] PCP - General Family Medicine 04/25/25 Letty Newsome NP [address] [place] [address] Nurse Practitioner Pulmonary Disease 05/19/23 04/17/25 Sima Paul, LES [address] [place] [address] Registered Nurse Family Medicine 08/24/23 documented as of this encounter
--- OUTSIDE RECORDS SUMMARY | 2025-07-19 17:40 | XMS_ITS | Clinical Summary ---
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 Last address used for calculation Fermin Joshua Arreola 04/13/2023 Comments No Sex and [...] Care Team (Late st Contact Info) Description 08/17/2025 3:30 PM EDT Office Visit Cardiology [address] [place] [address] echo 08/17/2025 4:20 PM EDT Office Visit Cardiology [address] [facility] [place] [address] [place] [address] [place] [address] Return in about 9 months (around 04/17/2025). Health Maintenance Due Date Last Done Comments Diabetic Foot Exam 1967 Dilated Retinal Exam 1967 Urine Albumin:Creatinine Ratio 1967 Annual PCP Team Chronic Dise ase Visit 1975 Anxiety Screening 1975 Depression Screening 1975 DTaP,Tdap,Td Vaccine (1 - Tdap) 1976 Hepatitis A Vaccine (1 of 2 - Risk 2-dose series) 1976 CT Colonography 2002 Cologuard (FIT-DNA) 2002 Fecal Occult Blood 2002 Sigmoidoscopy 2002 Shingrix Vaccine (1 of 2) 2007 Medicare Annual Wellness Visit 08/02/2008 Hepatitis B Vaccine (1 of 3 - Risk 3-dose series) 2017 RSV Vaccine (1 - Risk 60-74 years 1-dose series) 2017 Colonoscopy 09/15/2019 09/15/2018 Colorectal Cancer Screening 09/15/2019 LDL Cholesterol 11/14/2020 11/14/2019 Pneumococcal Vaccine: 50+ (3 of 3 - PCV20 or PCV21) 10/05/2022 10/05/2017, 07/16/2015 Mammogram Screening 10/16/2023 10/16/2022, 10/16/2022, 04/06/2020, Additional history exists Advance Directive Discussion 11/02/2024 HbA1C 12/21/2024 06/20/2024, 10/0 12/2022, 08/04/2023, Additional history exists Influenza Vaccine (#1) 2025 , 10/14/2018, 10/05/2017, Additional history exists Hepatitis C [...] Abnormal stress test Coronary artery disease involving havasupai coronary artery of havasupai heart without angina pectoris *HEP C AB Routine 05/25/2019 1:12 PM EDT Cirrhosis of liver without ascites, unspecified hepatic cirrhosis type (HCC) from Last 3 Months or Most Recently Relevant to Health Maintenance Results * LIPID PANEL BASIC (11/14/2019 10:13 AM EST) Cholesterol, Total 114 <200 mg/dL 11/14/2019 11:05 AM [facility] Triglyceride 110 <150 mg/dL 11/14/2019 11:05 AM [facility] HDL Cholesterol 50 >39 mg/dL 0 11:05 AM [facility] LDL Cholesterol, Calculated 42 <100 mg/dL 11/14/2019 11:05 AM [facility] Comment: <100 mg/dL, Optimal 100-129 mg/dL, Near optimal/above optimal 130-159 mg/dL, Borderline high 160-189 mg/dL, High >189 mg/dL, Very high Secondary prevention optimal LDL Cholesterol levels are recommended to be < 70 mg/dL Non HDL Cholesterol 64 <130 mg/dL 11/14/2019 11:05 AM [facility] Comment: <130 mg/dL, Optimal 130-159 mg/dL, Near optimal/above optimal 160-189 mg/dL, Borderline high 190-219 mg/dL, High >219 mg/dL, Very high Secondary prevention optimal non HDL Cholesterol levels are recommended to be < 100 mg/dL Fasting Time 12 hrs 11/14/2019 10:15 AM [facility] VLDL Cholesterol 22 <30 mg/dL 11/14/19 20 11:05 AM [facility] TC:HDL Ratio 2.28 <5.10 11/14/2019 11:05 AM [facility] LDL:HDL Ratio 0.84 <2.54 11/14/2019 11:05 AM [facility] Comment: Reference: 1. National Cholesterol Education Program ATP III Guideline At-A-Glance Quick Desk Reference: National Heart, Lung, and Blood Diggs. National Institutes of Health. 2001: NIH Publication No. 01-3305. 2. An International Atherosclerosis Society position paper: global recommendations for the management of dyslipidemia: executive summary, Atherosclerosis. 2014: 232(2):410-413. Blood specimen (specimen) BLOOD SPECIMEN / Unknown 11/14/2019 10:13 AM EST 11/14/2019 10:15 AM EST Justus Mendez MD LABORATORY Final Result Performing Organization Address City/[facility]/ZIP Co de Phone Number [facility] [address] [place] [address], [facility] * HEP REMOTE PANEL BL (05/25/2019 1:12 PM EDT) Hep B Core Ab, Total Negative Negative 05/26/2019 1:25 PM EDT [facility] Hep C Antibody IA Negative Negative 05/26/2019 1:27 PM EDT [facility] HBsAg Negative Negative 05/26/2019 1:25 PM EDT [facility] Hep B Surface Ab, Qual Negative Negative 05/26/2019 1:26 PM EDT [facility] Comment:NEGATIVE Blood specimen (specimen) BLOOD SPECIMEN / Unknown 05/25/2019 1:12 PM EDT 05/25/2019 1:14 PM EDT Letty Yanez PLANNING CONSULTANT.[employer] [facility] Final Result Performing Organization Address City/[facility] Co de Phone Number [facility] [address] [place] [address] [facility] [address] [place] [address] from Last 3 Months or Most Recently Relevant to Health Maintenance Insurance [place] Care Teams Inspector Packer Relationship Specialty Start Date End Date Vitaliy Thomson MD [address] [place] [address] PCP - General Family Medicine 01/22/15 Daniella Lima NP [address] [place] [address] Referring Family Medicine 04/18/19
--- OUTSIDE RECORDS SUMMARY | 2025-07-19 17:40 | XMS_ITS | Encounter Summary ---
Author Organization [facility] Address [address] [place] [address] Care Team Providers Care Arnp Name Role Phone Vitaliy Thomson MD Unavailable [phone] Sima Paul RN Unavailable [phone] Power Swain DO Primary Care Provider [phone] Encounter Details Date Type Department Care Team (Late st Contact Info) Description 07/12/2025 External Result Encounter [facility] External Department Unsolicited Fabiola Marinelli MD [address] [place] [address] Social History Tobacco Use Types Packs/Day Years Used Date Smoking Tobacco: Former Cigarettes Smokeless Tobacco: Former Alcohol Use Standard Drinks/Week Comments Never 0 (1 standard drink = 0.6 oz pure alcohol) cafffeine intake: 1-2 cups per day AUDIT-C Answer Date Recorded Q1: How often do you have a drink containing alcohol? Never 06/15/2025 Q2: How many drinks containi ng alcohol do you have on a typical day when you are drinking? Patient does not drink Q3: How often do you have si x or more drinks on one occasion? Never 06/15/2025 PHQ-2 Answer Date Recorded Patient Health Questionnaire-2 Score 0 06/15/2025 Comments No Sex and Gender Information Value [...] [facility] [address] [place] [address] Power Swain, DO [address] [place] [address] documented as of this encounter Procedures Procedure Name Priority Date/Time Associated Diagnosis Comments COMPREHENSIVE METABOLIC PANEL STAT 07/12/2025 8:06 AM EDT documented in this encounter Results * (ABNORMAL) Comprehensive metabolic panel (07/12/2025 8:06 AM EDT) Glucose 119(H) 70 - 100 mg/dL 07/12/2025 8:51 AM EDT [facility] Comment: Random Glucose Reference Range is dependent on time and content of last meal. Glucose of more than 200 mg/dL in a nonstressed, ambulatory subject supports the diagnosis of Diabetes Mellitus. ADA recommended reference range BUN 21 7 - 25 mg/dL 07/12/2025 8:51 AM EDT [facility] CREATININE 1.12 0.60 - 1.20 mg/dL 07/12/2025 8:51 AM EDT [facility] ESTIMATED GFR 53.896 07/12/2025 8:51 AM EDT [facility] Sodium 136 136 - 145 mmol/L 07/12/2025 8:51 AM EDT [facility] Potassium, Bld 4.3 3.5 - 5.1 mmol/L 07/12/2025 8:51 AM EDT [facility] Chloride 102 98 - 107 mmol/L 07/12/2025 8:51 AM EDT [facility] Carbon Dioxide 27.8 21.0 - 31.0 mmol/L 07/12/2025 8:51 AM EDT [facility] Anion Gap 10.5 6.0 - 15.0 07/12/2025 8:51 AM EDT [facility] Calcium 8.5(L) 8.6 - 10.3 mg/dL 07/12/2025 8:51 AM EDT [facility] TOTAL PROTEIN 5.8(L) 6.4 - 8.9 g/dL 07/12/2025 8:51 AM EDT [facility] ALBUMIN LEVEL 3.7 3.5 - 5.7 g/dL 07/12/2025 8:51 AM EDT [facility] GLOBULIN 2.1 g/dL 07/12/2025 8:51 AM EDT [facility] ALBUMIN/GLOBULIN RATIO 1.8 07/12/2025 8:51 AM EDT [facility] BILIRUBIN,TOTAL 1.3(H) 0.3 - 1.0 mg/dL 07/12/2025 8:51 AM EDT [facility] Comment: Samples from patients who have taken Naproxen have shown spurious elevation in Total Bilirubin levels. A metabolite of Naproxen, O-desmethylnaproxen, has been shown to interfere with the Jendrassik-Grof method for measuring Total Bilirubin. ASPARTATE AMINO TRANSFERASE 28 13 - 39 U/L 07/12/2025 8:51 AM EDT [facility] ALANINE AMINOTRANSFERASE 14 7 - 52 U/L 07/12/2025 8:51 AM [facility] ALKALINE PHOSPHATASE 120(H) 34 - 104 U/L 07/12/2025 8:51 AM T [facility] CREATININE CLR [facility] 49.94 07/12/2025 8:51 AM [facility] Other Topography unknown / Unknown 07/12/2025 8:06 AM EDT 07/12/2025 8:16 AM EDT us Fabiola Marinelli MD LAB BLOOD ORDERABLES Final Resul t [facility] [address] [place] [address], [facility] [address] [place] [address] documented in this encounter Visit Diagnoses Not on filedocumented in this encounter Additional Health Concerns Assessment Noted Time PHQ-9 Depression Total Score: 0 11/30/19 24 9:00 AM EST documented as of this encounter Care Teams Arnp Relationship Specialty Start Date End Date Vitaliy Thomson MD [address] [place] [address] PCP - ACO Reach 03/26/23 Power Swain DO [address] [place] [address] PCP - General Family Medicine 04/25/25 Sima Paul, LES [address] [place] [address] Registered Nurse Family Medicine 08/24/23 documented as of this encounter
--- OUTSIDE RECORDS SUMMARY | 2025-07-19 17:40 | XMS_ITS | Encounter Summary ---
Author Organization [facility] Address [address] [place] [address] Care Team Providers Care Blueprint Tracer Name Role Phone Vitaliy Thomson MD Unavailable [phone] Sima Paul RN Unavailable [phone] Power Swain DO Primary Care Provider [phone] Encounter Details Date Type Department Care Team (Late st Contact Info) Description 05/19/2025 External Result Encounter [facility] External Department Unsolicited Fabiola Marinelli MD [address] [place] [address] Social History Tobacco Use Types Packs/Day Years Used Date Smoking Tobacco: Former Cigarettes Smokeless Tobacco: Former Alcohol Use Standard Drinks/Week Comments Never 0 (1 standard drink = 0.6 oz pure alcohol) cafffeine intake: 1-2 cups per day AUDIT-C Answer Date Recorded Q1: How often do you have a drink containing alcohol? Never 05/15/2025 Q2: How many drinks containi ng alcohol do you have on a typical day when you are drinking? Patient does not drink Q3: How often do you have si x or more drinks on one occasion? Never 05/15/2025 PHQ-2 Answer Date Recorded Patient Health Questionnaire-2 Score 0 05/15/2025 Comments No Sex and Gender Information Value [...] [address], [address] [place] [address] BrynnPower, DO [address] [place] [address] documented as of this encounter Procedures Procedure Name Priority Date/Time Associated Diagnosis Comments [facility] US LOWER EXTREMITY VENOUS DUPLEX RIGHT 05/19/2025 1:57 PM EDT documented in this encounter Results * Vascular US lower extremity venous duplex right (05/19/2025 1:57 PM EDT) Anatomical Region Laterality Modality Lower Extremities Ultrasound 05/19/2025 1:57 PM EDT Impressions 05/19/2025 2:00 PM EDT NO EVIDENCE OF DEEP VENOUS THROMBOSIS IN THE RIGHT LOWER EXTREMITY. NO SUPERFICIAL THROMBOPHLEBITIS WAS NOTED. Impression dictated by: Jorge Abel M.D. 05/19/2025 1:58 PM Dictation Location: [place] [address] Tech: Letty Dionisio Transcribed By: GIOVANNA 05/19/25 1358 Dictated By: Jorge Abel MD 05/19/25 1357 Signed By: <Electronically signed by MD Jorge Abel in OV> 05/19/25 1358 Narrative 05/19/2025 2:00 PM EDT [facility] Main [address] [address] Ultrasound Report Signed Patient: Mojgan Snider MR#: [id number] : 1955 Acct:[id number] Age/Sex: 69 / F ADM Date: 05/18/25 Loc: [facility] Room: Type: [facility] Attending Dr: Katie Holder APRN Ordering Provider: Fabiola Marinelli MD Date of Service: 05/18/25 US/US venous duplex LE RT: M79.89 - Other specified soft tissue disorders Copies to: MD Katie Downey APRN RIGHT LOWER EXTREMITY VENOUS DUPLEX INDICATION: Painful swollen right leg Unilateral right lower extremity venous duplex Doppler study was obtained utilizing B-mode, color- flow and spectral Doppler. FINDINGS: The right common femoral, femoral, and popliteal veins showed adequate compressibility, color-flow and augmentation. The right posterior tibial and peroneal veins were compressible, as well as proximal greater saphenous vein. The contralateral left common femoral vein was compressible with color-flow and augmentation. US/US venous duplex LE RT Procedure Note Jorge Abel MD - 05/19/2025 [facility] Main [place] [address] [place] [address] Ultrasound Report Signed Patient: Mojgan Snider [facility]#: [id number] : 1955cct:[id number] Age/Sex: 69 / FADM Date: 05/18/25 Loc: [facility] Room:Type: [facility] Attending Dr: Ktaie Holder APRN Ordering Provider: Fabiola Marinelli MD Date of Service: 05/18/25 US/US venous duplex LE RT: M79.89 - Otherspecified soft tissue disorders Copies to: MD Katie Downey APRN RIGHT LOWER EXTREMITY VENOUS DUPLEX INDICATION: Painful swollen right leg Unilateral right lower extremity venous duplex Doppler study was obtainedutilizing B-mode, color- flow and spectral Doppler. FINDINGS: The right common femoral, femoral, and popliteal veins showedadequate compressibility, color-flow and augmentation. The right posterior tibial and peronealveins were compressible, as well as proximal greater saphenous vein. The contralateral left commonfemoral vein was compressible with color-flow and augmentation. US/US venous duplex LE RT IMPRESSION: NO EVIDENCE OF DEEP VENOUS THROMBOSIS IN THE RIGHT LOWER EXTREMITY. NOSUPERFICIAL THROMBOPHLEBITIS WAS NOTED. Impression dictated by: Jorge Abel M.D. 05/19/2025 1:58 PM Dictation Location: [place] [address] Tech: Letty Nichole Transcribed By: GIOVANNA 05/19/25 1358 Dictated By: Jorge Abel MD 05/19/25 1357 Signed By: <Electronically signed by MD Jorge Abel in OV> 05/19/25 1358 us Fabiola Marinelli MD IMG US PROCEDURES Final Result documented in this encounter Visit Diagnoses Not on filedocumented in this encounter Additional Health Concerns Assessment Noted Time PHQ-9 Depression Total Score: 0 11/30/19 24 9:00 AM EST documented as of this encounter Care Teams Blueprint Tracer Relationship Specialty Start Date End Date Vitaliy Thomson MD [address] [place] [address] PCP - ACO Reach 03/26/23 Power Swain DO [address] [place] [address] [place] [address] PCP - General Family Medicine 04/25/25 Sima Paul, LES [address] [place] [address] Registered Nurse Family Medicine 08/24/23 documented as of this encounter
--- OUTSIDE RECORDS SUMMARY | 2025-07-19 17:40 | XMS_ITS | Encounter Summary ---
Author Organization [facility] Address [address] [facility] [place] [address] Care Team Providers Care Chuck Boner Name Role Phone Vitaliy Thomson MD Unavailable [phone] Vitaliy Thomson MD Primary Care Provider [phone] Letty Newsome MORTGAGE OPERATIONS MANAGER Unavailable [phone] Sima Paul RN Unavailable + [phone] Power Swain DO Primary Care Provider [phone] Power Swain DO Primary Care Provider [phone] Encounter Details Date Type Department Care Team (Late st Contact Info) Description 02/06/2025 Abstract [facility] [address] [place] [address] Vitaliy Thomson MD [address] [place] [address] Social History Tobacco Use Types Packs/Day Years [...] [address] [place] [address] Power Swain DO [address] [place] [address] documented as of this encounter Visit Diagnoses Not on filedocumented in this encounter Additional Health Concerns Assessment Noted Time PHQ-9 Depression Total Score: 0 11/30/19 24 9:00 AM EST documented as of this encounter Care Teams Chuck Boner Relationship Specialty Start Date End Date Vitaliy Thomson MD [address] [place] [address] PCP - ACO Reach 03/26/23 Vitaliy Thomson MD [address] [place] [address] PCP - General Family Medicine 05/19/23 04/17/25 Power Swain DO [address] [place] [address] PCP - General Family Medicine 04/18/25 04/24/25 Power Swain DO [address] [facility] [address] [place] [address] PCP - General Family Medicine 04/25/25 Letty Newsome NP [address] [place] [address] Nurse Practitioner Pulmonary Disease 05/19/23 04/17/25 Sima Paul, RN [address] [place] [address] Registered Nurse Family Medicine 08/24/23 documented as of this encounter
--- OUTSIDE RECORDS SUMMARY | 2025-07-19 17:40 | XMS_ITS | Encounter Summary ---
Author Organization [facility] Address [address] [facility] [[email or web address] [address] Care Team Providers Care Bad Work Gatherer Name Role Phone Vitaliy Thomson MD Unavailable [phone] Vitaliy Thomson MD Primary Care Provider [phone] Letty Newsome TRAFFIC ENGINEERING DIRECTOR Unavailable [phone] Sima Paul RN Unavailable [phone] Power Swain DO Primary Care Provider [phone] Power Swain DO Primary Care Provider [phone] Encounter Details Date Type Department Care Team (Late st Contact Info) Description 03/30/2025 Results [facility] [address] [place] [address] Power Swain DO [address] [address] POCT urinalysis dipstick manually resulted, URINARY TRACT INFECTION (HTRX) Social History Tobacco Use Types Packs/Day Years [...] [address], [address] [place] [address] Power Swain DO [address] [place] [address] documented as of this encounter Visit Diagnoses Not on filedocumented in this encounter Additional Health Concerns Assessment Noted Time PHQ-9 Depression Total Score: 0 11/30/19 24 9:00 AM EST documented as of this encounter Care Teams Bad Work Gatherer Relationship Specialty Start Date End Date Vitaliy Thomson MD [address] [place] [address] PCP - ACO Reach 03/26/23 Vitaliy Thomson MD [address] [place] [address] PCP - General Family Medicine 05/19/23 04/17/[address] [place] [address] PCP - General Family Medicine 04/18/25 04/24/25 Power Swain DO [address] [place] [address] PCP - General Family Medicine 04/25/25 Letty Newsome NP [address] [place] [address] Nurse Practitioner Pulmonary Disease 05/19/23 04/17/25 Sima Paul, LES [address] [place] [address] Registered Nurse Family Medicine 08/24/23 documented as of this encounter
--- OUTSIDE RECORDS SUMMARY | 2025-07-19 17:40 | XMS_ITS | Encounter Summary ---
Author Organization [facility] Address [address] [place] [address] Care Team Providers Care Carburetor Specialist Name Role Phone Vitaliy Thomson MD Unavailable [phone] iSma Paul RN Unavailable [phone] Power Swain DO Primary Care Provider [phone] Encounter Details Date Type Department Care Team (Late st Contact Info) Description 06/08/2025 Abstract [facility] [address] [place], [facility] [address] [place] [address] Power Swain DO [address] [facility] [[email or web address] [place] [address] Social History Tobacco Use Types Packs/Day Years [...] Family Practice [address], [place] [address] [place] [address] Power Swain DO [address] [facility] [address] [place] [address] documented as of this encounter Visit Diagnoses Not on filedocumented in this encounter Additional Health Concerns Assessment Noted Time PHQ-9 Depression Total Score: 0 11/30/19 24 9:00 AM EST documented as of this encounter Care Teams Carburetor Specialist Relationship Specialty Start Date End Date Vitaliy Thomson MD [address] [place] [address] PCP - ACO Reach 03/26/23 Power Swain DO [address] [place] [address] [place] [address] PCP - General Family Medicine 04/25/25 Sima Paul RN [address] [place] [address] Registered Nurse Family Medicine 08/24/23 documented as of this encounter
--- OUTSIDE RECORDS SUMMARY | 2025-07-19 17:40 | XMS_ITS | Encounter Summary ---
Author Organization [facility] Address [address] [place] [address] Care Team Providers Care Infection Control Coordinator Name Role Phone Vitaliy Thomson MD Unavailable [phone] Sima Paul RN Unavailable [phone] Power Swain DO Primary Care Provider Encounter Details Date Type Department Care Team (Late st Contact Info) Description 05/29/2025 Abstract [facility] [address] [place], [address] [place] [address] Power Swain DO [address] [facility] [address] [place] [address] Social History Tobacco Use Types Packs/Day Years [...] Family Practice [address], [place] [address] [place] [address] Power Swain DO [address] [facility] [address] [place] [address] documented as of this encounter Visit Diagnoses Not on filedocumented in this encounter Additional Health Concerns Assessment Noted Time PHQ-9 Depression Total Score: 0 11/30/19 24 9:00 AM EST documented as of this encounter Care Teams Infection Control Coordinator Relationship Specialty Start Date End Date Vitaliy Thomson MD [address] [place] [address] PCP - ACO Reach 03/26/23 Power Swain DO [address] [place] [address] [place] [address] PCP - General Family Medicine 04/25/25 Sima Paul RN [address] [place] [address] Registered Nurse Family Medicine 08/24/23 documented as of this encounter
--- OUTSIDE RECORDS SUMMARY | 2025-07-19 17:40 | XMS_ITS | Encounter Summary ---
Author Organization [facility] Address [address] [place] [address] Care Team Providers Care Reheater Name Role Phone Vitaliy Thomson MD Unavailable [phone] Vitaliy Thomson MD Primary Care Provider [phone] Fabiola Palumbo MASTER BREWER Unavailable Letty Newsome MASTER BREWER Unavailable [phone] Sima Paul RN Unavailable [phone] Power Swain DO Primary Care Provider [phone] Power Swain DO Primary Care Provider [phone] Encounter Details Date Type Department Care Team (Late st Contact Info) Description 04/13/2023 Clinisync Result Encounter [facility] External Department Unsolicited Vitaliy Thomson MD [address] [place] [address] Social History Tobacco Use Types Packs/Day Years [...] [facility] [address] [place], [facility] [address] [place] [address] Power Swain, DO [address] [place] [address] documented as of this encounter Procedures Procedure Name Priority Date/Time Associated Diagnosis Comments ECHO 04/13/2023 10:01 AM EDT documented in this encounter Results * ECHO (04/13/2023 10:01 AM EDT) Anatomical Region Laterality Modality Other 04/13/2023 10:0 1 AM EDT Narrative 04/13/2023 12:42 PM EDT Echocardiography Report: Transthoracic Echo [facility] Date of service: 04/13/2023 10:01:47 AM MEASUREMENTS TEACHER Ordering physician: JUAN J WELDON Indication: Re-evaluation [...] * * Final * * * [facility] [employer] [facility] : [id number]^[employer]^SI^SUID Procedure Note Radiology, Radiologist, MD - 04/13/2023 Echocardiography Report: Transthoracic Echo [facility] Date of service: 04/13/2023 10:01:47 AM MEASUREMENTS TEACHER Ordering physician: JUAN J WELDON Indication: Re-evaluation [...] * * Final * * * [employer] [facility] :[id number]^[employer]^SI^SUID us Vitaliy Thomson MD [facility] Final Result documented in this encounter Visit Diagnoses Not on filedocumented in this encounter Care Teams Reheater Relationship Specialty Start Date End Date Vitaliy Thomson MD [address] [place] [address] PCP - ACO Reach 03/26/23 Vitaliy Thosmon MD [address] [place] [address] PCP - General Family Medicine 05/19/23 04/17/[address] [place] [address] [place] [address] PCP - General Family Medicine 04/18/25 04/24/25 Power Swain DO [address] [place] [address] [place] [address] PCP - General Family Medicine 04/25/25 Fabiola Palumbo NP [address] [place] [address] Nurse Practitioner Family Medicine 05/19/23 01/19/25 Letty Newsome NP [address] [place] [address] Nurse Practitioner Pulmonary Disease 05/19/23 04/17/25 Sima Paul, LES [address] [place] [address] Registered Nurse Family Medicine 08/24/23 documented as of this encounter
--- OUTSIDE RECORDS SUMMARY | 2025-07-19 17:40 | XMS_ITS | Encounter Summary ---
Author Organization [facility] Address [address] [place] [address] Care Team Providers Care [place] Attorney Name Role Phone Vitaliy Thomson MD Unavailable [phone] Vitaliy Thomson MD Primary Care Provider [phone] Letty Newsome BULK TRUCK DRIVER Unavailable [phone] Sima Paul RN Unavailable + [phone] Power Swain DO Primary Care Provider [phone] Power Swain DO Primary Care Provider [phone] Reason for Visit * Reason Comments Med Change Request Encounter Details Date Type Department Care Team (Late st Contact Info) Description 02/16/2025 Refill [facility] [address] [place] [address] Power Swain DO [address] [place] [address] Seasonal allergic rhinitis due to pollen Social [...] [facility] [address] [place] [address] Power Swain DO [address] [place] [address] [place] [address] documented as of this encounter Visit Diagnoses Diagnosis Seasonal allergic rhinitis due to pollen documented in this encounter Additional Health Concerns Assessment Noted Time PHQ-9 Depression Total Score: 0 11/30/19 24 9:00 AM EST documented as of this encounter Care Teams United [place] Attorney Relationship Specialty Start Date End Date Vitaliy Thomson MD [address] [place] [address] PCP - ACO Reach 03/26/23 Vitaliy Thomson MD [address] [place] [address] PCP - General Family Medicine 05/19/23 04/17/[address] [place] [address] PCP - General Family Medicine 04/18/25 04/24/25 Power Swain DO [address] [facility] [address] [place] [address] PCP - General Family Medicine 04/25/25 Letty Newsome, BULK TRUCK DRIVER [address] [place] [address] Nurse Practitioner Pulmonary Disease 05/19/23 04/17/25 Sima Paul, LES [address] [place], [place] [address] Registered Nurse Family Medicine 08/24/23 documented as of this encounter
--- OUTSIDE RECORDS SUMMARY | 2025-07-19 17:40 | XMS_ITS | Encounter Summary ---
Author Organization [facility] Address [address] [facility] [place] [address] Care Team Providers Care Development Advisor Name Role Phone Vitaliy Thomson MD Unavailable [phone] Vitaliy Thomson MD Primary Care Provider [phone] Fabiola Palumbo NP Unavailable Letty Newsome MEDICAL BILLING INSTRUCTOR Unavailable [phone] Sima Paul RN Unavailable [phone] Power Swain DO Primary Care Provider [phone] Power Swain DO Primary Care Provider [phone] Encounter Details Date Type Department Care Team (Late st Contact Info) Description 05/25/2023 Orders Only [facility] [address] [facility] [address] [place] [address] Mojgan Calero, MEDICAL BILLING INSTRUCTOR [address] [place] [address] Social History Tobacco Use Types Packs/Day Years [...] AM EST Office Visit [facility] [address], [facility] [address] [place] [address] Power Swain DO [address] [facility] [address] [place] [address] documented as of this encounter Visit Diagnoses Not on filedocumented in this encounter Care Teams Development Advisor Relationship Specialty Start Date End Date Vitaliy Thomson MD [address] [place] [address] PCP - ACO Reach 03/26/23 Vitaliy Thomson MD [address] [place] [address] PCP - General Family Medicine 05/19/23 04/17/[address] [place] [address] PCP - General Family Medicine 04/18/25 04/24/25 Power Swain DO [address] [facility] [place] [address] PCP - General Family Medicine 04/25/25 Fabiola Palumbo NP [address] [place] [address] Nurse Practitioner Family Medicine 05/19/23 01/19/25 Letty Newsome NP [address] [place] [address] Nurse Practitioner Pulmonary Disease 05/19/23 04/17/25 Sima Paul, RN [address] [place] [address] Registered Nurse Family Medicine 08/24/23 documented as of this encounter
--- OUTSIDE RECORDS SUMMARY | 2025-07-19 17:40 | XMS_ITS | Encounter Summary ---
Author Organization [facility] Address [address] [facility] [address] Care Team Providers Care Horse Racetrack Manager Name Role Phone Vitaliy Thomson MD Unavailable [phone] Vitaliy Thomson MD Primary Care Provider [phone] Fabiola Palumbo NP Unavailable Letty Newsome NP Unavailable [phone] Sima Paul RN Unavailable [phone] Pwoer Swain DO Primary Care Provider [phone] Power Swain DO Primary Care Provider [phone] Encounter Details Date Type Department Care Team (Late st Contact Info) Description 09/30/2023 Orders Only [facility] [address] [place] [address] Fabiola Palumbo NP [address] [facility] [address] [place] [address] Social History Tobacco Use Types Packs/Day Years [...] [facility] [address] [place] [address] [place] [address] Power Swain DO [address] [place] [address] documented as of this encounter Procedures Procedure Name Priority Date/Time Associated Diagnosis Comments KAPPA/LAMBDA LIGHT CHAINS FREE W/RATIO RFL VAHID, S Routine 09/29/2023 4:16 PM EST IGG 1, 2, 3, AND 4 Routine 09/29/2023 4:16 PM EST documented in this encounter Results * IgG 1, 2, 3, and 4 (09/29/2023 4:16 PM EST) Blood Venous blood specimen / Unknown Fabiola Palumbo TANKAGE GRINDER LAB BLOOD ORDERABLES Final Resul t * KAPPA/LAMBDA LIGHT CHAINS FREE W/RATIO RFL VAHID, S (09/29/2023 4:16 PM EST) Fabiola Palumbo TANKAGE GRINDER LAB BLOOD ORDERABLES Final Resul t documented in this encounter Visit Diagnoses Not on filedocumented in this encounter Care Teams Horse Racetrack Manager Relationship Specialty Start Date End Date Vitaliy Thomson MD [address] [place] [address] PCP - ACO Reach 03/26/23 Vitaliy Thomson MD [address] [place] [address] PCP - General Family Medicine 05/19/23 04/17/25 Power Swain DO [address] [place] [address] PCP - General Family Medicine 04/18/25 04/24/25 Power Swain DO [address] [place] [address] [place] [address] PCP - General Family Medicine 04/25/25 Fabiola Palumbo NP [address] [place] [address] Nurse Practitioner Family Medicine 05/19/23 01/19/25 Letty Newsome TANKAGE GRINDER [address] [place] [address] Nurse Practitioner Pulmonary Disease 05/19/23 04/17/25 Sima Paul, [place]ES [address] [place] [address] Registered Nurse Family Medicine 08/24/23 documented as of this encounter
--- OUTSIDE RECORDS SUMMARY | 2025-07-19 17:40 | XMS_ITS | Encounter Summary ---
Author Organization [facility] Address [address] [facility] [place] [address] Care Team Providers Care Floor Installation Mechanic Name Role Phone Vitaliy Thomsno MD Unavailable [phone] Sima Paul RN Unavailable [phone] Power Swain DO Primary Care Provider [phone] Encounter Details Date Type Department Care Team (Late st Contact Info) Description 06/06/2025 Orders Only [facility] [address] [place] [address] Power Swain DO [address] [facility] [address] [place] [address] Social History Tobacco Use Types Packs/Day Years [...] [address] [address] [place] [address] Power Swain DO [address] [place] [address] [place] [address] documented as of this encounter Procedures Procedure Name Priority Date/Time Associated Diagnosis Comments DIABETIC RETINOPATHY SCREENING - OU - BOTH EYES Routine 06/06/2025 10:06 AM EDT documented in this encounter Results * Diabetic Retinopathy Screening - OU - Both Eyes (06/06/2025 10:06 AM EDT) Anatomical Region Laterality Modality Head Other Power Swain DO [employer] Final Result documented in this encounter Visit Diagnoses Not on filedocumented in this encounter Additional Health Concerns Assessment Noted Time PHQ-9 Depression Total Score: 0 11/30/19 24 9:00 AM EST documented as of this encounter Care Teams Floor Installation Mechanic Relationship Specialty Start Date End Date Vitaliy Thomson MD [address] [place] [address] PCP - ACO Reach 03/26/23 Power Swain DO [address] [place] [address] [place] [address] PCP - General Family Medicine 04/25/25 Sima Paul, [place]ES [address] [place] [address] Registered Nurse Family Medicine 08/24/23 documented as of this encounter
--- OUTSIDE RECORDS SUMMARY | 2025-07-19 17:40 | XMS_ITS | Encounter Summary ---
Author Organization [facility] Address [address] [facility] [place] [address] Care Team Providers Care Shoe Turner Name Role Phone Vitaliy Thomson MD Unavailable [phone] Vitaliy Thomson MD Primary Care Provider [phone] Letty Newsome INTELLIGENCE CHIEF Unavailable [phone] Sima Paul RN Unavailable [phone] Power Swain DO Primary Care Provider [phone] Power Swain DO Primary Care Provider [phone] Encounter Details Date Type Department Care Team (Late st Contact Info) Description 03/02/2025 Abstract [facility] [place] [facility] [address] [place] [phone] Power Swain DO [address] [place] [address] Social History Tobacco Use Types Packs/Day Years [address] [place] [address] Power Swain DO [address] [place] [address] documented as of this encounter Visit Diagnoses Not on filedocumented in this encounter Additional Health Concerns Assessment Noted Time PHQ-9 Depression Total Score: 0 11/30/19 24 9:00 AM EST documented as of this encounter Care Teams Shoe Turner Relationship Specialty Start Date End Date Vitaliy Thomson MD [address] [place] [address] PCP - ACO Reach 03/26/23 Vitaliy Thomson MD [address] [place] [address] PCP - General Family Medicine 05/19/23 04/17/25 Power Swain DO [address] [place] [address] PCP - General Family Medicine 04/18/25 04/24/25 Power Swain DO [address] [facility] [address] [place] [address] PCP - General Family Medicine 04/25/25 Letty Newsome NP [address] [place] [address] Nurse Practitioner Pulmonary Disease 05/19/23 04/17/25 Sima Paul, LES [address] [place] [address] Registered Nurse Family Medicine 08/24/23 documented as of this encounter
--- OUTSIDE RECORDS SUMMARY | 2025-07-19 17:40 | XMS_ITS | Encounter Summary ---
Author Organization [facility] Address [address] [place] [address] Care Team Providers Care Cake Icer And Packer Name Role Phone Vitaliy Thomson MD Unavailable [phone] Sima Paul RN Unavailable [phone] Power Swain DO Primary Care Provider [phone] Encounter Details Date Type Department Care Team (Late st Contact Info) Description 05/22/2025 Orders Only [facility] [address] [facility] [address] [place] [address] Polina Ferrari MA Abnormal CXR (chest x-ray); Paroxysmal atrial fibrillation (HCC) Social History Tobacco Use Types Packs/Day Years [...] 10:00 AM EST Office Visit [facility] [address] [place] [address] Power Sawin DO [address] [place] [address] documented as of this encounter Procedures Procedure Name Priority Date/Time Associated Diagnosis Comments ECG 12-LEAD Routine 05/22/2025 9:43 AM EDT Abnormal CXR (chest x-ray) Paroxysmal atrial fibrillation (HCC) XR CHEST 2 VIEWS Routine 05/22/2025 9:42 AM EDT Abnormal CXR (chest x-ray) Paroxysmal atrial fibrillation (HCC) documented in this encounter Results * ECG 12 lead (05/22/2025 9:43 AM EDT) Power Swain DO ECG ORDERABLES Final Result [facility] [address] [place] [address], * XR chest 2 views (05/22/2025 9:42 AM EDT) Anatomical Region Laterality Modality Chest Radiographic Shirley ging Power Swain DO IMG XR PROCEDURES Final Result documented in this encounter Visit Diagnoses Diagnosis Abnormal CXR (chest x-ray) Nonspecific (abnormal) findings on radiological and other examination of lung field Paroxysmal atrial fibrillation (HCC) Atrial fibrillation documented in this encounter Additional Health Concerns Assessment Noted Time PHQ-9 Depression Total Score: 0 11/30/19 24 9:00 AM EST documented as of this encounter Care Teams Cake Icer And Packer Relationship Specialty Start Date End Date Vitaliy Thomson MD [address] [place] [address] PCP - ACO Reach 03/26/23 Power Swain DO [address] [place] [address] PCP - General Family Medicine 04/25/25 Sima Paul, RN [address] [place] [address] Registered Nurse Family Medicine 08/24/23 documented as of this encounter
--- OUTSIDE RECORDS SUMMARY | 2025-07-19 17:40 | XMS_ITS | Encounter Summary ---
Author Organization [facility] Address [address] [facility] [place] [address] Care Team Providers Care Felting Machine Operator Name Role Phone Vitaliy Thomson MD Unavailable [phone] Vitaliy Thomson MD Primary Care Provider [phone] Fabiola Palumbo NP Unavailable Letty Newsome NP Unavailable [phone] Sima Paul RN Unavailable [phone] Power Swain DO Primary Care Provider [phone] Power Swain DO Primary Care Provider [phone] Encounter Details Date Type Department Care Team (Late st Contact Info) Description 10/24/2024 [facility] [address] [place] [address] Fabiola Palumbo NP [address] [facility] [address] [place] [address] Social History Tobacco Use Types Packs/Day Years [...] [address] [place] [address] Power Swain DO [address] [place] [address] documented as of this encounter Visit Diagnoses Not on filedocumented in this encounter Additional Health Concerns Assessment Noted Time PHQ-9 Depression Total Score: 0 11/30/19 24 9:00 AM EST documented as of this encounter Care Teams Felting Machine Operator Relationship Specialty Start Date End Date Vitaliy Thomson MD [address] [place] [address] PCP - ACO Reach 03/26/23 Vitaliy Thomson MD [address] [place] [address] PCP - General Family Medicine 05/19/23 04/17/[address] [place] [address] PCP - General Family Medicine 04/18/25 04/24/25 Power Swain DO [address] [facility] [address] [place] [address] PCP - General Family Medicine 04/25/25 Fabiola Palumbo NP [address] [place] [address] Nurse Practitioner Family Medicine 05/19/23 01/19/25 Letty Newsome NP [address] [place] [address] Nurse Practitioner Pulmonary Disease 05/19/23 04/17/25 Sima Paul, LES [address] [place] [address] Registered Nurse Family Medicine 08/24/23 documented as of this encounter
--- OUTSIDE RECORDS SUMMARY | 2025-07-19 17:40 | XMS_ITS | Encounter Summary ---
Author Organization [facility] Address [address] [facility] [place] [address] Care Team Providers Care Repairer Cylinder Heads Name Role Phone Vitaliy Thomson MD Unavailable [phone] Vitaliy Thomson MD Primary Care Provider [phone] Fabiola Palumbo NP Unavailable Letty Newsome NP Unavailable [phone] Sima Paul RN Unavailable [phone] Power Swain DO Primary Care Provider [phone] Power Swain DO Primary Care Provider [phone] Encounter Details Date Type Department Care Team (Late st Contact Info) Description 11/17/2024 [facility] [place] [facility] [address] [place] [address] Fabiola Palumbo NP [address] [facility] [address] [place] [address] Social History Tobacco Use Types Packs/Day Years [...] [address] [place] [address] Power Swain DO [address] [place] [address] documented as of this encounter Visit Diagnoses Not on filedocumented in this encounter Additional Health Concerns Assessment Noted Time PHQ-9 Depression Total Score: 0 11/30/19 24 9:00 AM EST documented as of this encounter Care Teams Repairer Cylinder Heads Relationship Specialty Start Date End Date Vitaliy Thomson MD [address] [place] [address] PCP - ACO Reach 03/26/23 Vitaliy Thomson MD [address] [place] [address] PCP - General Family Medicine 05/19/23 04/17/[address] [place] [address] PCP - General Family Medicine 04/18/25 04/24/25 Power Swain DO [address] [facility] [address] [place] [address] PCP - General Family Medicine 04/25/25 Fabiola Palumbo NP [address] [place] [address] Nurse Practitioner Family Medicine 05/19/23 01/19/25 Letty Newsome NP [address] [place] [address] Nurse Practitioner Pulmonary Disease 05/19/23 04/17/25 Sima Paul, LES [address] [place] [address] Registered Nurse Family Medicine 08/24/23 documented as of this encounter
--- OUTSIDE RECORDS SUMMARY | 2025-07-19 17:40 | XMS_ITS | Encounter Summary ---
Author Organization [facility] Address [address] [place] [address] Care Team Providers Care Dish Maker Name Role Phone Vitaliy Thomson MD Unavailable [phone] Sima Paul RN Unavailable [phone] Power Swain DO Primary Care Provider [phone] Encounter Details Date Type Department Care Team (Late st Contact Info) Description 05/22/2025 Abstract [facility] [address] [place], [facility] 340 [place] [address] Power Swain DO [address] [facility] [address] [place] [address] Social History Tobacco Use Types Packs/Day Years [...] Family Practice [address], [place] [address] [place] [address] Power Swain DO [address] [facility] [address] [place] [address] documented as of this encounter Visit Diagnoses Not on filedocumented in this encounter Additional Health Concerns Assessment Noted Time PHQ-9 Depression Total Score: 0 11/30/19 24 9:00 AM EST documented as of this encounter Care Teams Dish Maker Relationship Specialty Start Date End Date Vitaliy Thomson MD [address] [place] [place] [address] PCP - ACO Reach 03/26/23 Power Swain DO [address] [place] [address] [place] [address] PCP - General Family Medicine 04/25/25 Sima Paul RN [address] [place] [address] Registered Nurse Family Medicine 08/24/23 documented as of this encounter
--- OUTSIDE RECORDS SUMMARY | 2025-07-19 17:40 | XMS_ITS | Encounter Summary ---
Author Organization [facility] Address [address] [facility] [place] [address] Care Team Providers Care License Issuer Name Role Phone Vitaliy Thomson MD Unavailable [phone] Vitaliy Thomson MD Primary Care Provider [phone] Fabiola Palumbo NP Unavailable Letty Newsome OILER BANDER Unavailable [phone] Sima Paul RN Unavailable [phone] Power Swain DO Primary Care Provider [phone] Power Swain DO Primary Care Provider [phone] Encounter Details Date Type Department Care Team (Late st Contact Info) Description 12/01/2023 Abstract [facility] [address] [place] [address] Marcie Cota MA Social History Tobacco Use [...] [address] [place] [address] Power Swain DO [address] [place] [address] documented as of this encounter Visit Diagnoses Not on filedocumented in this encounter Additional Health Concerns Assessment Noted Time PHQ-9 Depression Total Score: 0 11/30/19 9:00 AM EST documented as of this encounter Care Teams License Issuer Relationship Specialty Start Date End Date Vitaliy Thomson MD [address] [place] [address] PCP - ACO Reach 03/26/23 Vitaliy Thomson MD [address] [place] [address] PCP - General Family Medicine 05/19/23 04/17/[address] [place] [address] PCP - General Family Medicine 04/18/25 04/24/25 Power Swain DO [address] [place] [address] PCP - General Family Medicine 04/25/25 Fabiola Palumbo, OILER BANDER [address] [place] [address] Nurse Practitioner Family Medicine 05/19/23 01/19/25 Letty Newsome NP [address] [place] [address] Nurse Practitioner Pulmonary Disease 05/19/23 04/17/25 Sima Paul, RN [address] [place] [address] Registered Nurse Family Medicine 08/24/23 documented as of this encounter
--- OUTSIDE RECORDS SUMMARY | 2025-07-19 17:40 | XMS_ITS | Encounter Summary ---
Author Organization [facility] Address [address] [place] [address] Care Team Providers Care Occupational Therapy Specialist Name Role Phone Vitaliy Thomson MD Unavailable [phone] Coral Duran RN Unavailable [phone] Power Swain DO Primary Care Provider [phone] Encounter Details Date Type Department Care Team (Late st Contact Info) Description 06/07/2025 Patient Outreach [facility] [address] [place] [address] Coral Duran, LES [address] [place] [address] Social History Tobacco Use Types Packs/Day Years [...] on file documented as of this encounter Functional Status * Audit-C Score Answer Date of Assessment Author 0 06/15/2025 8:51 AM EDT Kelvin Carlos LPN * Question Answer Date of Assessment Author Q1: How often do you have a drink containing alcohol? Never 06/15/2025 8:51 AM EDT Negar Carlos LPN Q2: How many drinks containing alcohol do you have on a typical day when you are drinking? Patient does not drink 06/15/2025 8:51 AM ISAIAHT Negar Carlos LPN Q3: How often do you have six or more drinks on one occasion? Never 06/15/2025 8:51 AM Negar Yusuf LPN * Over the past 2 weeks, how often have you been bothered by any of the following problems? Question Answer Date of Assessment Author Little interest or pleasure in doing things Not at all 06/15/2025 8:51 AM Negar Yusuf LPN Feeling down, depressed, or hopeless Not at all 06/15/2025 8:51 AM ISAIAHT Negar Carlos LPN Patient Health Questionnaire -2 Score 0 06/15/2025 8:51 AM Negar Yusuf LPN documented as of this encounter Progress Notes * Coral Duran RN - 06/07/2025 2:14 PM EDT Monthly monitor, chart reviewed. [facility] 05/15/25 NOV 06/12/25 Call returned to publications writer from pt re: monthly check in on current status. Reviewed chronic conditions. Pt reports she had to cancel her ablation surgery scheduled at 06/01 d/t UTI. She now needs to redo all of her pre op clearance again prior to surgery now scheduled for 06/[address] Swain 06/12 -reviewed previous orders. All orders must be within 30 days of procedure. CBC in chart from today. Will follow up if needed per review with Dr. Swain. Denies any refill needs. Care plan reviewed and updated <June 08, 2025, 09:33 - Coral Duran RN> Pt calls to report she will need to reschedule her appt for Thursday, she just realized she has a conflict. Rescheduled for 06/15 <June 09, 2025, 10:13 - Coral Duran RN> Checked pt chart media - paperwork is in chart Pt reports she will need a new nebulizer and supplies. Advised will alert Dr. Swain for needed documentation <June 09, 2025, 10:19 - Coral Duran RN> Further reviewed ov from 04/10- documentation noted for ongoing use of nebulizer machine and medication on med list. Will contact Medicine [facility] to see if they carry the nebulizer machine. <June 09, 2025, 10:33 - Coral Duran RN> Spoke with Home Medical dept and advised they do have nebulizer machines but they no longer bill insurance - they have the machine and tubing for $61. States, she is unaware of any local that bills insurance, they rent to pt Advised will discuss with pt. <June 09, 2025, 10:40 - oCral Duran RN> Call to pt - she is ok to send to [facility] Fax submitted for home nebulizer and supplies. * Power Swain DO - 06/07/2025 2:14 PM EDT Thank you for update documented in this encounter Miscellaneous Notes * Addendum Note - Coral Duran RN - 06/07/2025 2:14 PM EDTAddended by: CORAL DURAN on: 06/09/2025 10:41 AM Modules accepted: Orders documented in this encounter Plan of Treatment Upcoming Encounters Date Type Department Care Team (Late st Contact Info) Description 2025 10:00 AM EST Office Visit [facility] [place] [facility] [address], [facility] 340 [place] [address] Power Swain DO [address] [place] [facility] 340 [place] [address] documented as of this encounter Visit Diagnoses Diagnosis Essential hypertension- Primary Unspecified essential hypertension Type 2 diabetes mellitus with other specified complication, without long-term current use of insulin (HCC) Chronic obstructive pulmonary disease, unspecified COPD type (HCC) documented in this encounter Additional Health Concerns Assessment Noted Time PHQ-9 Depression Total Score: 0 11/30/19 9:00 AM EST documented as of this encounter Care Teams Occupational Therapy Specialist Relationship Specialty Start Date End Date Vitaliy Thomson MD [address] [place] [address] PCP - ACO Reach 03/26/23 Power Swain DO [address] [place] [address] [place] [address] PCP - General Family Medicine 04/25/25 Coral Duran RN [address] [place] [address] Registered Nurse Family Medicine 08/24/23 documented as of this encounter
--- OUTSIDE RECORDS SUMMARY | 2025-07-19 17:40 | XMS_ITS | Encounter Summary ---
Author Organization [facility] Address [address] [place] [address] Care Team Providers Care Furnace Erector Name Role Phone Vitaliy Thomson MD Unavailable [phone] Sima Paul RN Unavailable [phone] Power Swain DO Primary Care Provider [phone] Encounter Details Date Type Department Care Team (Late st Contact Info) Description 07/12/2025 External Result Encounter [facility] External Department Unsolicited Fabiola Marinelli MD [address] [place] [address] Social History Tobacco Use Types [...] [address] [place] [address] Power Swain, DO [address] [place] [address] documented as of this encounter Procedures Procedure Name Priority Date/Time Associated Diagnosis Comments IMMUNOFIXATION,SERU M ([facility]) Routine 07/12/2025 8:06 AM EDT ALPHA FETOPROTEIN, TUMOR MARKER Routine 07/12/2025 8:06 AM EDT PROTEIN ELECTROPHORESIS, SERUM Routine 07/12/2025 8:06 AM EDT documented in this encounter Results * IMMUNOFIXATION,SERUM ([facility]) (07/12/2025 8:06 AM EDT) IMMUNOFIXATION, SERUM Comment . 07/14/2025 2:09 PM EDT [facility] Comment:No monoclonality det ected. IMMUNOGLOBULIN G 525 586 - 1,602 mg/dL 07/14/2025 2:09 PM EDT [facility] IMMUNOGLOBULIN A, SERUM <5 87 - 352 mg/dL 07/14/2025 2:09 PM EDT [facility] Comment:Result confirmed on concentration. IMMUNOGLOBULIN M, SERUM <5 26 - 217 mg/dL 07/14/2025 2:09 PM EDT [facility] Comment: Result confirmed on concentration. Performed at: [address] [id number] Loading Machine Operator Helper: Lang Knight PhD, Phone: [phone] Other Topography unknown / Unknown 07/12/2025 8:06 AM EDT 07/12/2025 8:16 AM EDT Fabiola Marinelli MD LAB BLOOD ORDERABLES Final Resul t Performing Organization Address [facility]/ZIP Co de Phone Number [facility] [place] [address], * Protein electrophoresis, serum (07/12/2025 8:06 AM EDT) TOTAL PROTEIN, SERUM 5.4 6.0 - 8.5 g/dL 07/13/2025 2:08 PM EDT [facility] ALBUMIN, SERUM 3.1 2.9 - 4.4 g/dL 07/13/2025 2:08 PM EDT [facility] [id number]-1-FPWSHAIZ 0.3 0.0 - 0.4 g/dL 07/13/2025 2:08 PM EDT [facility] [id number]-5-[id number] 0.7 0.4 - 1.0 g/dL 07/13/2025 2:08 PM EDT [facility] BETA GLOBULIN 0.8 0.7 - 1.3 g/dL 07/13/2025 2:08 PM EDT [facility] GAMMA GLOBULIN 0.4 0.4 - 1.8 g/dL 07/13/2025 2:08 PM EDT [facility] M-SPIKE Not Observed Not Observed g/dL 07/13/2025 2:08 PM EDT [facility] GLOBULIN, TOTAL 2.3 2.2 - 3.9 g/dL 07/13/2025 2:08 PM EDT [facility] A/G RATIO 1.3 0.7 - 1.7 07/13/2025 2:08 PM EDT [employer] [facility] SPE-NOTE Comment . 07/13/2025 2:08 PM EDT [facility] Comment: Protein electrophoresis scan will follow via computer, mail, or steamer tender delivery. Performed at: [facility] [address] [id number] Loading Machine Operator Helper: Lang Knight PhD, Phone: [phone] Other Topography unknown / Unknown 07/12/2025 8:06 AM EDT 07/12/2025 8:16 AM EDT Fabiola Marinelli MD LAB BLOOD ORDERABLES Final Resul t Performing Organization Address City/[facility]/ZIP Co de Phone Number [facility] [place] [address], * AFP tumor marker (07/12/2025 8:06 AM EDT) AFP TUMOR MARKER, SERUM 4.6 0.0 - 9.2 ng/mL 07/13/2025 12:09 PM EDT [facility] Comment: [facility] Electrochemiluminescence Immunoassay (ECLIA) Values obtained with different assay methods or kits cannot be used interchangeably. Results cannot be interpreted as absolute evidence of the presence or absence of malignant disease. This test is not interpretable in females. Performed at: - [facility] [id number] Loading Machine Operator Helper: Lang Knight PhD, Phone: [phone] Other Topography unknown / Unknown 07/12/2025 8:06 AM EDT 07/12/2025 8:16 AM EDT us Fabiola Marinelli MD LAB BLOOD ORDERABLES Final Resul t [facility] [address] [place] [address], documented in this encounter Visit Diagnoses Not on filedocumented in this encounter Additional Health Concerns Assessment Noted Time PHQ-9 Depression Total Score: 0 11/30/19 24 9:00 AM EST documented as of this encounter Care Teams Furnace Erector Relationship Specialty Start Date End Date Vitaliy Thomson MD [address] [place] [address] PCP - ACO Reach 03/26/23 Power Swain DO [address] [place] [address] [place] [address] PCP - General Family Medicine 04/25/25 Sima Paul, RN [address] [place] [address] Registered Nurse Family Medicine 08/24/23 documented as of this encounter
--- OUTSIDE RECORDS SUMMARY | 2025-07-19 17:40 | XMS_ITS | Encounter Summary ---
Author Organization [facility] Address [address] [place] [address] Care Team Providers Care Wearing Apparel Shaker Name Role Phone Vitaliy Thomson MD Unavailable [phone] Vitaliy Thomson MD Primary Care Provider [phone] Fabiola Palumbo NP Unavailable Letty Newsome GRANULATOR MACHINE OPERATOR Unavailable [phone] Sima Paul RN Unavailable [phone] Power Swain DO Primary Care Provider [phone] Power Swain DO Primary Care Provider [phone] Encounter Details Date Type Department Care Team (Late st Contact Info) Description 11/07/2024 Abstract [facility] [address] [place] [address] Letty Newsome GRANULATOR MACHINE OPERATOR [address] [place] [id number] Social History Tobacco Use Types Packs/Day Years [...] [address], [address] [place] [address] Power Swain DO [address] [place] [address] documented as of this encounter Visit Diagnoses Not on filedocumented in this encounter Additional Health Concerns Assessment Noted Time PHQ-9 Depression Total Score: 0 11/30/19 24 9:00 AM EST documented as of this encounter Care Teams Wearing Apparel Shaker Relationship Specialty Start Date End Date Vitaliy Thomson MD [address] [place] [address] PCP - ACO Reach 03/26/23 Vitaliy Thomson MD [address] [place] [address] PCP - General Family Medicine 05/19/23 04/17/[address] [place] [address] [place] [address] PCP - General Family Medicine 04/18/25 04/24/25 Power Swain DO [address] [place] [address] PCP - General Family Medicine 04/25/25 Fabiola Palumbo NP [address] [place] [address] Nurse Practitioner Family Medicine 05/19/23 01/19/25 Letty Newsome NP [address] [place] [id number] Nurse Practitioner Pulmonary Disease 05/19/23 04/17/25 Sima Paul, LES [address] [place] [address] Registered Nurse Family Medicine 08/24/23 documented as of this encounter
--- OUTSIDE RECORDS SUMMARY | 2025-07-19 17:40 | XMS_ITS | Encounter Summary ---
Author Organization [facility] Address [address] [place] [address] Care Team Providers Care Shift Nurse Manager Name Role Phone Vitaliy Thomson MD Unavailable [phone] Vitaliy Thomson MD Primary Care Provider [phone] Letty Newsome FINANCIAL INSTITUTION VICE PRESIDENT Unavailable [phone] Sima Paul RN Unavailable [phone] Power Swain DO Primary Care Provider [phone] Power Swain DO Primary Care Provider [phone] Encounter Details Date Type Department Care Team (Late st Contact Info) Description 03/14/2025 Results Follow-Up [facility] [address] [facility] [address] [place] [phone] Olga Greer FINANCIAL INSTITUTION VICE PRESIDENT [address] [facility] [address] [place] [address] URINALYSIS ANALYZER TEST, URINARY TRACT INFECTION (HTRX) Social History Tobacco [...] Family Practice [address], [facility] [address] [place] [address] Power Swain DO [address] [place] [address] documented as of this encounter Visit Diagnoses Not on filedocumented in this encounter Additional Health Concerns Assessment Noted Time PHQ-9 Depression Total Score: 0 11/30/19 24 9:00 AM EST documented as of this encounter Care Teams Shift Nurse Manager Relationship Specialty Start Date End Date Vitaliy Thomson MD [address] [place] [address] PCP - ACO Reach 03/26/23 Vitaliy Thomson MD [address] [place] [address] PCP - General Family Medicine 05/19/23 04/17/[address] [place] [address] [place] [address] PCP - General Family Medicine 04/18/25 04/24/25 Power Swain DO [address] [facility] [address] [place] [address] PCP - General Family Medicine 04/25/25 Letty Newsome FINANCIAL INSTITUTION VICE PRESIDENT [address] [place] [address] Nurse Practitioner Pulmonary Disease 05/19/23 04/17/25 Sima Paul, RN [address] [place] [address] Registered Nurse Family Medicine 08/24/23 documented as of this encounter
--- OUTSIDE RECORDS SUMMARY | 2025-07-19 17:40 | XMS_ITS | Clinical Summary ---
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 Number [facility] [address] [place] [address], [place] * IMMUNOGLOBULINS A/E/G/M, QN ([facility]) (06/20/2025 8:15 AM EDT) IMMUNOGLOBULIN G 606 586 - 1,602 mg/dL 06/28/2025 8:17 AM EDT [facility] IMMUNOGLOBULIN A, SERUM <5 87 - 352 mg/dL 06/28/2025 8:17 AM EDT [facility] Comment:Result confirmed on concentration. IMMUNOGLOBULIN M, SERUM <5 26 - 217 mg/dL 06/28/2025 8:17 AM EDT [facility] Comment:Result confirmed on concentration. IMMUNOGLOBULIN E <2 6 - 495 06/28/20 8:17 AM EDT [facility] Comment: Performed at: [facility] [address] [id number] Manager Clinic: Lang Knight PhD, Phone: [phone] Performed at: [facility] [address] [id number] Manager Clinic: Maxine Briones MD, Phone: [phone] Other Topography unknown / Unknown 06/20/2025 8:15 AM EDT 06/20/2025 8:34 AM EDT Fabiola Marinelli MD LAB BLOOD ORDERABLES Final Resul t Performing Organization Address [facility] Co de Phone Number [facility] [address] [place] [address], [place] * FREE K+L LT CHAINS, QN, S (06/07/2025 10:13 AM EDT) FREE KAPPA LIGHT CHAINS, S <0.7 3.3 - 19.4 mg/L 06/08/2025 2:36 PM EDT [facility] FREE LAMBDA LIGHT CHAINS, S 5.8 5.7 - 26.3 mg/L 06/08/2025 2:36 PM EDT [facility] KAPPA/LAMBDA RATIO, S <0.12 0.26 - 1.65 06/08/2025 2:36 PM EDT [facility] Comment: Performed at: - [facility] [address] [id number] Manager Clinic: Lang Knight PhD, Phone: [phone] Other Topography unknown / Unknown 06/07/2025 10:13 AM EDT 06/07/2025 10:20 AM EDT Fabiola Marinelli MD LAB BLOOD ORDERABLES Final Resul t Performing Organization Address [facility] [place] [address], * Diabetic Retinopathy Screening - OU - Both Eyes (06/06/2025 10:06 AM EDT) Anatomical Region Laterality Modality Head Other us Power Swain DO OPHTH PHOTOGRAPHY Final Result * CBC auto differential (05/22/2025 9:45 AM EDT) Blood Venous blood specimen / Unknown us Power Swain DO LAB BLOOD ORDERABLES Final Resu lt Performing Organization Address [facility] [place] [address], [place] * Protime-INR (05/22/2025 9:45 AM EDT) Blood Venous blood specimen / Unknown us Power Swain DO LAB BLOOD ORDERABLES Final Resu lt Performing Organization Address [facility] de Phone Number [place] [phone], [place] * Hemoglobin A1c (05/22/2025 9:45 AM EDT) Blood Venous blood specimen / Unknown us Power Swain DO LAB BLOOD ORDERABLES Final Resu lt Performing Organization Address [facility] de Phone Number EXTERNAL LAB * ECG 12 lead (05/22/2025 9:43 AM EDT) us Power Swain DO ECG ORDERABLES Final Result [address] [address], [place] * XR chest 2 views (05/22/2025 9:42 AM EDT) Anatomical Region Laterality Modality Chest Radiographic Shirley ging us Power Swain DO IMG XR PROCEDURES Final Result * Vascular US lower extremity venous duplex right (05/19/2025 1:57 PM EDT) Anatomical Region Laterality Modality Lower Extremities Ultrasound 05/19/2025 1:57 PM EDT Impressions 05/19/2025 2:00 PM EDT NO EVIDENCE OF DEEP VENOUS THROMBOSIS IN THE RIGHT LOWER EXTREMITY. NO SUPERFICIAL THROMBOPHLEBITIS WAS NOTED. Impression dictated by: Jorge Abel M.D. 05/19/2025 1:58 PM Dictation Location: [place] [address] Tech: Letty Nichole Transcribed By: GIOVANNA 05/19/25 1358 Dictated By: Jorge Abel MD 05/19/25 1357 Signed By: <Electronically signed by MD oJrge Abel in OV> 05/19/25 1358 Narrative 05/19/2025 2:00 PM EDT [facility] Main [address] [address] Ultrasound Report Signed Patient: Mojgan Snider MR#: [id number] : 1955 Acct:[id number] Age/Sex: 69 / F ADM Date: 05/18/25 Loc: [facility] Room: Type: [facility] Attending Dr: Katie Holder APRN Ordering Provider: [...] Procedure Note Jorge Abel MD - 05/19/2025 [facility] Main [place] [address] [place] [address] Ultrasound Report Signed Patient: Mojgan Snider [facility]#: [id number] : 7Acct:[id number] Age/Sex: 69 / FADM Date: 05/18/25 Loc: [facility] Room:Type: [facility] Attending Dr: Katie Holder APRN Ordering Provider: [...] Abel M.D. 05/19/2025 1:58 PM Dictation Location: [place] [address] Tech: Letty Nichole Transcribed By: GIOVANNA 05/19/25 1358 Dictated By: Jorge Abel MD 05/19/25 1357 Signed By: <Electronically signed by MD Jorge Abel in OV> 05/19/25 1358 Fabiola Marinelli MD IM US PROCEDURES Final Result * Microalbumin / creatinine urine ratio (08/26/2024 12:23 PM EDT) MICROALBUMIN, URINE < 0.7 0.0 - 1.8 08/26/2024 1:19 PM EDT [facility] CREATININE, URINE (RANDOM) 11.00 mg/dL 08/26/2024 1:17 PM EDT [facility] Comment:No reference range e stablished MICROALBUMIN/CR EATININE RATIO Test not performed 0.0 - 30.0 08/26/2024 1:19 PM EDT [facility] Other Urine specimen obtained by clean catch procedure / Unknown 08/26/2024 12:23 PM EDT 08/26/2024 12:23 PM EDT Fabiola Palumbo NET LEAD DEVELOPER LAB URINE ORDERABLES Final Resul t Performing Organization Address City/State/[facility] Co de Phone Number [facility] [address] [place] [address], [facility] [address] [place] [address] * MM TOMOSYNTHESIS SCREENING BI (08/18/2024 3:19 PM EDT) Anatomical Region Laterality Modality Other 08/18/2024 3:19 PM EDT Narrative 08/18/2024 3:20 [place] [address] Mammography Report Signed Patient: MOJGAN SNIDER MR#: [id number] : 1955 Acct:[id number] Age/Sex: 68 / F ADM Date: 08/18/24 Loc: [facility]MO Attending Dr: YINKA THOMSON Ordering Physician: YINKA THOMSON Results: Date of Service: 08/18/24 Follow Up: Procedure(s): MM tomosynthesis screening BI Accession Number(s): [id number] cc: YINKA THOMSON Patient Name: MOJGAN SNIDER MR#: [id number] : 1955 Exam Date: 08/18/2024 Ordering Doctor: [...] lung cancer at age 66. LOCATION: [facility] [place] [facility] BREAST COMPOSITION: There are scattered areas of [...] Signed By: 08/18/24 1520 DD/ 1519 TD/TT: Report Specialist: Procedure Note Radiology, Radiologist, MD - 08/18/2024 [place] [address] Mammography Report Signed Patient: MOJGAN SNIDER SMR#: [id number] : 1955cct:[id number] Age/Sex: 68 / FADM Date: 08/18/24 Loc: M[facility]MO Attending Dr: YINKA THOMSON Ordering Physician: YINKA THOMSONResults: Date of Service: 08/18/24Follow Up: Procedure(s): MM tomosynthesis screening BI Accession Number(s): [id number] cc: YINKA THOMSON Patient Name: MOJGAN SNIDER MR#: [id number] : 1955 Exam Date: 08/18/2024 Ordering Doctor: [...] lung cancer at age 66. LOCATION: [facility] [place] [facility] BREAST COMPOSITION: There are scattered areas of [...] M.D. Signed By:08/18/24 1520 DD/ 1519 TD/TT: Report Specialist: Yinka Thomson MD [facility] Final Result * Colonoscopy (09/15/2018 12:00 PM EST) Anatomical Region Laterality Modality Endoscopy 09/15/2018 12:0 0 PM EST Narrative 09/15/2018 12:00 PM EST PERFORMED AT [facility] LOCATION:[id number] Abnormal Procedure Note CONVERSION, GENERIC - 03/18/2023 PERFORMED AT [facility] LOCATION:[id number] Abnormal Yinka Thomson MD ENDOSCOPY PROCEDURE ORDERABLES Final Result from Last 3 Months or Most Recently Relevant to Health Maintenance [place] [place] [address] MEDICARE MEDICAID [place] Advance Directives * Full Code (Latest Code Status on File) Date Activated Date Inactivated Comments 03/01/2025 2:43 PM Care Teams Telemarketing Manager Relationship Specialty Start Date End Date Yinka Thomson MD [address] [place] [address] PCP - ACO Reach 03/26/23 Power Swain DO [address] [place] [address] PCP - General Family Medicine 04/25/25 Sima Paul, LES [address] [place] [address] Registered Nurse Family Medicine 08/24/23
--- OUTSIDE RECORDS SUMMARY | 2025-07-19 17:40 | XMS_ITS | Encounter Summary ---
Author Organization [facility] Address [address] [place] [address] Care Team Providers Care Napkin Band Wrapper Name Role Phone Vitaliy Thomson MD Unavailable [phone] Vitaliy Thomson MD Primary Care Provider [phone] Fabiola Palumbo NP Unavailable Letty Newsome WINE BLENDER Unavailable [phone] Sima Paul RN Unavailable [phone] Power Swain DO Primary Care Provider [phone] Power Swain DO Primary Care Provider [phone] Encounter Details Date Type Department Care Team (Late st Contact Info) Description 09/21/2024 External Result Encounter [facility] External Department Unsolicited Fabiola Marinelli MD [address] [place] [address] Social History Tobacco Use Types [...] 2025 10:00 AM EST Office Visit [facility] [address], [address] [place] [address] Power Swain DO [address] [place] [address] documented as of this encounter Procedures Procedure [...] Jorge Duffy M.D.09/21/2024 4:07 PM Dictation Location: [facility] Transcribed By: [facility] 09/21/24 1607 Dictated By: Jorge Duffy DO 09/21/24 160 Signed By: <Electronically signed by Jorge Duffy DO in OV> 09/21/24 1607 Narrative 09/21/2024 4:10 PM EST [facility] Main [address] [address] Nuclear Medicine Report Signed Patient: Mojgan Snider MR#: [id number] : 1955 Acct:[id number] Age/Sex: 69 / F ADM Date: 09/21/24 Loc: XT Room: Type: [facility] RCR Attending Dr: Fabiola Marinelli MD Copies [...] bone subq (nopr) Procedure Note Radiology, Radiologist, - 09/21/2024 [facility] Main [place] [address] [place] [address] Nuclear Medicine Report Signed Patient: Mojgan Snider SMR#: [id number] : 1955cct:[id number] Age/Sex: 69 / FADM Date: 09/21/24 Loc: XT Room:Type: [facility] RCR Attending Dr: Fabiola Marinelli MD Copies [...] 4:07 PM Dictation Location: [facility] Transcribed By: [facility] 09/21/24 1607 Dictated By: Jorge Duffy DO 09/21/24 1602 Signed By: <Electronically signed by Jorge Duffy DO in OV> 09/21/24 1607 Fabiola Marinelli MD IMG CT PROCEDURES Final Result documented in this encounter Visit Diagnoses Not on filedocumented in this encounter Additional Health Concerns Assessment Noted Time PHQ-9 Depression Total Score: 0 11/30/19 9:00 AM EST documented as of this encounter Care Teams Napkin Band Wrapper Relationship Specialty Start Date End Date Vitaliy Thomson MD [address] [place] [address] PCP - ACO Reach 03/26/23 Vitaliy Thomson MD [address] [place] [address] PCP - General Family Medicine 05/19/23 04/17/25 Power Swain DO [address] [place] [address] PCP - General Family Medicine 04/18/25 04/24/25 Power Swain DO [address] [place] [address] PCP - General Family Medicine 04/25/25 Fabiola Palumbo NP [address] [place] [address] Nurse Practitioner Family Medicine 05/19/23 01/19/25 Letty Newsome NP [address] [place] [address] Nurse Practitioner Pulmonary Disease 05/19/23 04/17/25 Sima Paul, LES [address] [place] [address] Registered Nurse Family Medicine 08/24/23 documented as of this encounter
--- OUTSIDE RECORDS SUMMARY | 2025-07-19 17:40 | XMS_ITS | Encounter Summary ---
Author Organization [facility] Address [address] [place] [address] Care Team Providers Care Bin Operator Name Role Phone Vitaliy Thomson MD Unavailable [phone] Sima [place] RN Unavailable [phone] Power Swain DO Primary Care Provider [phone] Encounter Details Date Type Department Care Team (Late st Contact Info) Description 05/25/2025 Abstract [facility] [address] [place], [facility] [address] [place] [address] Power Swain DO [address] [facility] [address] [place] [address] Social History Tobacco Use Types Packs/Day Years [...] Family Practice [address], [place] [address] [place] [address] Power Swain DO [address] [facility] [address] [place] [address] documented as of this encounter Visit Diagnoses Not on filedocumented in this encounter Additional Health Concerns Assessment Noted Time PHQ-9 Depression Total Score: 0 11/30/19 24 9:00 AM EST documented as of this encounter Care Teams Bin Operator Relationship Specialty Start Date End Date Vitaliy Thomson MD [address] [place] [place] [address] PCP - ACO Reach 03/26/23 Power Swain DO [address] [place] [address] [place] [address] PCP - General Family Medicine 04/25/25 Sima Paul RN [address] [place] [address] Registered Nurse Family Medicine 08/24/23 documented as of this encounter
--- OUTSIDE RECORDS SUMMARY | 2025-07-19 17:40 | XMS_ITS | Encounter Summary ---
Author Organization [facility] Address [address] [facility] [place] [address] Care Team Providers Care Audiologist Name Role Phone Vitaliy Thomson MD Unavailable [phone] Vitaliy Thomson MD Primary Care Provider [phone] Fabiola Palumbo NP Unavailable Letty Newsome NP Unavailable [phone] Sima Paul RN Unavailable [phone] Power Swain DO Primary Care Provider [phone] Power Swain DO Primary Care Provider [phone] Encounter Details Date Type Department Care Team (Late st Contact Info) Description 09/29/2023 Orders Only [facility] [place] [facility] [address] [place] [address] Fabiola Palumbo NP [address] [facility] [address] [place] [address] Social History Tobacco Use Types Packs/Day Years [...] [address], [place] [address] [place] [address] Power Swain DO [address] [place] [address] [place] [address] documented as of this encounter Procedures Procedure Name Priority Date/Time Associated Diagnosis Comments COMPREHENSIVE METABOLIC PANEL Routine 09/29/2023 1:31 PM EST documented in this encounter Results * Comprehensive metabolic panel (09/29/2023 1:31 PM EST) Blood Venous blood specimen / Unknown Fabiola Palumbo OIL BURNER MECHANIC LAB BLOOD ORDERABLES Final Resul t documented in this encounter Visit Diagnoses Not on filedocumented in this encounter Care Teams Audiologist Relationship Specialty Start Date End Date Vitaliy Thomson MD [address] [place] [address] PCP - ACO Reach 03/26/23 Vitaliy Thomson MD [address] [place] [address] PCP - General Family Medicine 05/19/23 04/17/25 Power Swain DO [address] [place] [address] PCP - General Family Medicine 04/18/25 04/24/25 Power Swain DO [address] [place] [address] PCP - General Family Medicine 04/25/25 Fabiola Palumbo NP [address] [place] [address] Nurse Practitioner Family Medicine 05/19/23 01/19/25 Letty Newsome NP [address] [place] [address] Nurse Practitioner Pulmonary Disease 05/19/23 04/17/25 Sima Paul, LES [address] [place] [address] Registered Nurse Family Medicine 08/24/23 documented as of this encounter
--- OUTSIDE RECORDS SUMMARY | 2025-07-19 17:40 | XMS_ITS | Encounter Summary ---
Author Organization [facility] Address [address] [facility] [place] [address] Care Team Providers Care Sample Selector Name Role Phone Vitaliy Thomson MD Unavailable [phone] Vitaliy Thomson MD Primary Care Provider [phone] Fabiola Palumbo NP Unavailable Letty Newsome RAILROAD EMERGENCY SERVICES MANAGER Unavailable [phone] Sima Paul RN Unavailable [phone] Power Swain DO Primary Care Provider [phone] Power Swain DO Primary Care Provider [phone] Encounter Details Date Type Department Care Team (Late st Contact Info) Description 12/29/2024 Abstract [facility] [place] [facility] [address] [place] [address] Vitaliy Thomson MD [address] [place] [address] Social History Tobacco Use Types Packs/Day Years [...] you are drinking? Patient does not drink 10/17/202 3 Q3: How often do you have si [...] [address], [address] [place] [address] Power Swain DO [address] [place] [address] documented as of this encounter Visit Diagnoses Not on filedocumented in this encounter Additional Health Concerns Assessment Noted Time PHQ-9 Depression Total Score: 0 11/30/19 24 9:00 AM EST documented as of this encounter Care Teams Sample Selector Relationship Specialty Start Date End Date Vitaliy Thomson MD [address] [place] [address] PCP - ACO Reach 03/26/23 Vitaliy Thomson MD [address] [place] [address] PCP - General Family Medicine 05/19/23 04/17/[address] [place] [address] PCP - General Family Medicine 04/18/25 04/24/25 Power Swain DO [address] [facility] [address] [place] [address] PCP - General Family Medicine 04/25/25 Fabiola Palumbo NP [address] [place] [address] Nurse Practitioner Family Medicine 05/19/23 01/19/25 Letty Newsome NP [address] [place] [address] Nurse Practitioner Pulmonary Disease 05/19/23 04/17/25 Sima Paul, LES [address] [place] [address] Registered Nurse Family Medicine 08/24/23 documented as of this encounter
--- OUTSIDE RECORDS SUMMARY | 2025-07-19 17:40 | XMS_ITS | Encounter Summary ---
Author Organization [facility] Address [address] [place] [address] Care Team Providers Care Electrical Contacts Adjuster Name Role Phone Vitaily Thomson MD Unavailable [phone] Vitaliy Thomson MD Primary Care Provider [phone] Fabiola Palumbo NP Unavailable Letty Newsome PACKAGING CLERK Unavailable [phone] Sima Paul RN Unavailable [phone] Power Swain DO Primary Care Provider [phone] Power Swain DO Primary Care Provider [phone] Encounter Details Date Type Department Care Team (Late st Contact Info) Description 12/24/2023 Orders Only [facility] [address] [place] [address] Letty Newsome, PACKAGING CLERK [address] [place] [address] Cough in adult (Primary Dx) Social History [...] Description 2025 10:00 AM EST Office Visit [facility] [place] [facility] [address] [place], [facility] [address] [place] [address] Power Swain DO [address] [facility] [address] [place] [address] documented as of this encounter Visit Diagnoses Diagnosis Cough in adult- Primary documented in this encounter Additional Health Concerns Assessment Noted Time PHQ-9 Depression Total Score: 0 11/30/19 24 9:00 AM EST documented as of this encounter Care Teams Electrical Contacts Adjuster Relationship Specialty Start Date End Date Vitaliy Thomson MD [address] [place] [address] PCP - ACO Reach 03/26/23 Vitaliy Thomson MD [address] [place] [address] PCP - General Family Medicine 05/19/23 04/17/[address] [place] [address] PCP - General Family Medicine 04/18/25 04/24/25 Power Swain DO [address] [facility] [place] [address] PCP - General Family Medicine 04/25/25 Fabiola Palumbo NP [address] [place] [address] Nurse Practitioner Family Medicine 05/19/23 01/19/25 Letty Newsome NP [address] [place] [address] Nurse Practitioner Pulmonary Disease 05/19/23 04/17/25 Sima Paul, RN [address] [place] [address] Registered Nurse Family Medicine 08/24/23 documented as of this encounter
--- OUTSIDE RECORDS SUMMARY | 2025-07-19 17:40 | XMS_ITS | Encounter Summary ---
Author Organization [facility] Address [address] [facility] [place] [address] Care Team Providers Care Sales Property Manager Name Role Phone Vitaliy Thomson MD Unavailable [phone] Vitaliy Thomson MD Primary Care Provider [phone] Fabiola Palumbo NP Unavailable Letty Newsome NP Unavailable [phone] Sima Paul RN Unavailable [phone] Power Swain DO Primary Care Provider [phone] Power Swain DO Primary Care Provider [phone] Encounter Details Date Type Department Care Team (Late st Contact Info) Description 09/16/2024 Abstract [facility] [address] [place] [address] Fabiola Palumbo NP [address] [facility] [address] [place] [address] Social History Tobacco Use Types Packs/Day Years [...] [address], [place] [address] [place] [address] Power Swain DO [address] [place] [address] [place] [address] documented as of this encounter Visit Diagnoses Not on filedocumented in this encounter Additional Health Concerns Assessment Noted Time PHQ-9 Depression Total Score: 0 11/30/19 24 9:00 AM EST documented as of this encounter Care Teams Sales Property Manager Relationship Specialty Start Date End Date Vitaliy Thomson MD [address] [place] [address] PCP - ACO Reach 03/26/23 Vitaliy Thomson MD [address] [place] [address] PCP - General Family Medicine 05/19/23 04/17/[address] [place] [address] PCP - General Family Medicine 04/18/25 04/24/25 Power Swain DO [address] [facility] [address] [place] [address] PCP - General Family Medicine 04/25/25 Fabiola Palumbo NP [address] [place] [address] Nurse Practitioner Family Medicine 05/19/23 01/19/25 Letty Newsome NP [address] [place] [address] Nurse Practitioner Pulmonary Disease 05/19/23 04/17/25 Sima Paul, LES [address] [place] [address] Registered Nurse Family Medicine 08/24/23 documented as of this encounter
--- OUTSIDE RECORDS SUMMARY | 2025-07-19 17:40 | XMS_ITS | Encounter Summary ---
Author Organization [facility] Address [address] [place] [address] Phone Care Team Providers Care Abattoir Supervisor Name Role Phone Vitaliy Thomson MD Primary Care Provider [phone] Supa Lindquist MD PhD Unavailable [phone] Jessica Grove RN Unavailable Unavailable Sarath Gamez MD Unavailable [phone] Fabiola Marinelli MD Primary Care Provider [phone] Lisette Perkins WELL HEAD PUMPER-MEAT CLERK Unavailable [phone] Theresa Romano MD PhD Unavailable [phone] Negro Epps MD PhD Unavailable [phone] Power Swain DO Primary Care Provider [phone] Encounter Details Date Type Department Care Team (Late st Contact Info) Description 05/07/2017 Scanned Document [facility] [address] [place] [id number] Scanning, Generic Provider Social History Tobacco Use Types Packs/Day Years Used Date Smoking Tobacco: Never Assessed Comments Unknown Sex and Gender Information Value Date Recorded Sex Assigned at Not on file Legal Sex Female 4:17 PM EST Gender Identity Not on file Sexual Orientation Straight 06/22/2025 6: 11 AM EDT documented as of this encounter Plan of Treatment Not on file documented as of this encounter Visit Diagnoses Not on filedocumented in this encounter Additional Health Concerns Infection Onset Date Last Indicated Resolved Time COVID-19 Rule-Out 08/04/2023 08/04/2023 08/04/2023 5:31 AM EDT Protective 08/10/2023 08/10/2023 02/06/2024 5:23 AM EDT documented as of this encounter Care Teams Abattoir Supervisor Relationship Specialty Start Date End Date Vitaliy Thomson MD [address] [place] [address] PCP - General 11/02/16 08/21/23 Fabiola Marinelli MD [address] [place] [address] PCP - General Hematology and Oncology 08/22/23 05/08/25 Power Swain DO [address] [place] [address] PCP - General Family Medicine 05/09/25 Supa Lindquist [place] PhD [address] [place] [address] Consulting Physician Hematology and Oncology 08/03/23 Jessica Grove, process development manager Coordinator Case Management 08/04/23 Sarath Gamez MD Consulting Physician Hematology and Oncology 08/04/23 11/17/23 Lisette Perkins, WELL HEAD PUMPER-MEAT CLERK [address] [place] [address] Nurse Practitioner Hematology and Oncology 09/14/23 Theresa Romano [place] PhD [address] [place] [address] Consulting Physician Hematology and Oncology 11/18/23 Negro Epps MD PhD [address] [place] [address] Consulting Physician Hematology and Oncology 01/19/24 documented as of this encounter
--- OUTSIDE RECORDS SUMMARY | 2025-07-19 17:40 | XMS_ITS | Encounter Summary ---
Author Organization [facility] Address [address] [facility] [place] [address] Care Team Providers Care Steam Train Driver Name Role Phone Vitaliy Thomson MD Unavailable [phone] Sima Paul RN Unavailable [phone] Power Swain DO Primary Care Provider [phone] Reason for Visit * Reason Comments Med Refill Encounter Details Date Type Department Care Team (Late st Contact Info) Description 07/18/2025 [facility]ill [facility] [place] [facility] [address] [place] [address] Power Swain DO [address] [facility] 340 [place] [address] Seasonal allergic rhinitis due to pollen Social [...] [address], [place] [address] [place] [address] Power Swain DO [address] [facility] [address] [place] [address] documented as of this encounter Visit Diagnoses Diagnosis Seasonal allergic rhinitis due to pollen documented in this encounter Additional Health Concerns Assessment Noted Time PHQ-9 Depression Total Score: 0 11/30/19 24 9:00 AM EST documented as of this encounter Care Teams Steam Train Driver Relationship Specialty Start Date End Date Vitaliy Thomson MD [address] [place] [address] PCP - ACO Reach 03/26/23 Power Swain DO [address] [facility] [address] [place] [address] PCP - General Family Medicine 04/25/25 Sima Paul RN [address] [place] [address] Registered Nurse Family Medicine 08/24/23 documented as of this encounter
--- OUTSIDE RECORDS SUMMARY | 2025-07-19 17:40 | XMS_ITS | Encounter Summary ---
Author Organization [facility] Address [address] [place] [address] Care Team Providers Care Transit Planner Name Role Phone Vitaliy Thomson MD Unavailable [phone] Sima Paul RN Unavailable [phone] Power Swain DO Primary Care Provider [phone] Encounter Details Date Type Department Care Team (Late st Contact Info) Description 07/12/2025 External Result Encounter [facility] External Department Unsolicited Fabiola Marinelli MD [address] [place] [address] Social History Tobacco Use Types [...] [address], [place] [address] [place] [address] Power Swain, DO [address] [place] [address] [place] [address] Pending Results Name Type Priority Associated Diagnoses Date /Time CBC auto differential Lab STAT 08/2025 8:06 AM EDT documented as of this encounter Procedures Procedure Name Priority Date/Time Associated Diagnosis Comments DIFF AND CBC STAT 07/12/2025 8:06 AM EDT documented in this encounter Results * (ABNORMAL) DIFF AND CBC (07/12/2025 8:06 AM EDT) WBC 2.5(L) 3.8 - 11.6 [CFU]/mL 07/12/2025 8:33 AM EDT [facility] UNCORRECTED WHITE BLOOD COUNT 2.5(L) 3.8 - 11.6 10*3/uL 07/12/2025 8:33 AM EDT [facility] RBC 3.52(L) 3.60 - 5.00 10*6/uL 07/12/2025 8:33 AM EDT [facility] HEMOGLOBIN 11.6(L) 11.8 - 15.4 g/dL 07/12/2025 8:33 AM EDT [facility] HEMATOCRIT 34.5 34.0 - 46.4 % 07/12/2025 8:33 AM EDT [facility] MCV 98.0 80 - 100 fL 07/12/2025 8:33 AM EDT [facility] MCH 32.9 24.7 - 34.3 pg 07/12/2025 8:33 AM EDT [facility] MCHC 33.5 32.0 - 35.0 g/dL 07/12/2025 8:33 AM EDT [facility] RED CELL DISTRIBUTION WIDTH, RDW 15.2 11.9 - 15.3 % 07/12/2025 8:33 AM EDT [facility] PLATELET COUNT 57(L) 150 - 450 10*3/uL 07/12/2025 8:33 AM EDT [facility] MEAN PLATELET VOLUME, MPV 9.0 6.3 - 10.7 fL 07/12/2025 8:33 AM EDT [facility] SEGMENTED NEUTROPHILS 38(L) 50 - 70 % 07/12/2025 9:09 AM EDT [facility] BAND NEUTROPHILS 1 0 - 5 % 07/12/20 9:09 AM EDT [facility] LYMPHOCYTES 20 18 - 42 % 07/12/2025 9:09 AM EDT [facility] MONOCYTES 14(H) 2 - 11 % 07/12/2025 9:09 AM EDT [facility] EOSINOPHILS 27(H) 1 - 3 % 07/12/2025 9:09 AM EDT [facility] POIKILOCYTOSIS Moderate 07/12/2025 9:09 AM EDT [facility] OVALOCYTES Moderate 07/12/2025 9:09 AM EDT [facility] PLATELET ESTIMATE Decreased Normal 025 9:09 AM EDT [facility] PLATELET MORPHOLOGY Normal Normal 07/12/2025 9:09 AM EDT [facility] Blood (Blood) 07/12/2025 8:0 6 AM EDT 07/12/2025 8:16 AM EDT Fabiola Marinelli MD LAB BLOOD ORDERABLES Final Resul t [facility] [address] [place] [address], [facility] [address] [place] [address] documented in this encounter Visit Diagnoses Not on filedocumented in this encounter Additional Health Concerns Assessment Noted Time PHQ-9 Depression Total Score: 0 11/30/19 24 9:00 AM EST documented as of this encounter Care Teams Transit Planner Relationship Specialty Start Date End Date Vitaliy Thomson MD [address] [place] [address] PCP - ACO Reach 03/26/23 Power Swain DO [address] [address] [place] [address] PCP - General Family Medicine 04/25/25 Sima Paul, LES [address] [place] [address] Registered Nurse Family Medicine 08/24/23 documented as of this encounter
--- OUTSIDE RECORDS SUMMARY | 2025-07-19 17:40 | XMS_ITS | Encounter Summary ---
Author Organization [facility] Address [address] [place] [address] Care Team Providers Care Cad Programmer Name Role Phone Vitaliy Thomson MD Unavailable [phone] Sima Paul RN Unavailable [phone] Power Swain DO Primary Care Provider [phone] Encounter Details Date Type Department Care Team (Late st Contact Info) Description 06/12/2025 Abstract [facility] [address] [place], [facility] [address] [place] [address] Power Swain DO [address] [facility] [address] [place] [address] Social History Tobacco Use Types Packs/Day Years [...] Patient does not drink 06/15/2025 8:51 AM EDT Negar Carlos LPN Q3: How often do you have six or more drinks on one occasion? Never 06/15/2025 8:51 AM EDT Negar Carlos LPN * Over the past 2 weeks, how often have you been bothered by any of the following problems? Question Answer Date of Assessment Author Little interest or pleasure in doing things Not at all 06/15/2025 8:51 AM ISAIAHT Negar Carlos LPN Feeling down, depressed, or hopeless Not at all 06/15/2025 8:51 AM EDT Negar Carlos LPN Patient Health Questionnaire -2 Score 0 06/15/2025 8:51 AM EDT Negar Carlos LPN documented as of this encounter Plan of Treatment Upcoming Encounters Date Type Department Care Team (Late st Contact Info) Description 2025 10:00 AM EST Office Visit [facility] [address], [address] [place] [address] Power Swain DO [address] [place] [address] documented as of this encounter Visit Diagnoses Not on filedocumented in this encounter Additional Health Concerns Assessment Noted Time PHQ-9 Depression Total Score: 0 11/30/19 9:00 AM EST documented as of this encounter Care Teams Cad Programmer Relationship Specialty Start Date End Date Vitaliy Thomson MD [address] [place] [address] PCP - ACO Reach 03/26/23 Power Swain DO [address] [place] [address] [place] [address] PCP - General Family Medicine 04/25/25 Sima Paul, LES [address] [place] [address] Registered Nurse Family Medicine 08/24/23 documented as of this encounter
--- OUTSIDE RECORDS SUMMARY | 2025-07-19 17:40 | XMS_ITS | Encounter Summary ---
Author Organization [facility] Address [address] [facility] [place] [address] Care Team Providers Care Fan Blade Aligner Name Role Phone Vitaliy Thomson MD Unavailable [phone] Vitaliy Thomson MD Primary Care Provider [phone] Letty Newsome LEARNING SUPPORT SPECIALIST Unavailable [phone] Sima Paul RN Unavailable [phone] Power Swain DO Primary Care Provider [phone] Power Swain DO Primary Care Provider [phone] Encounter Details Date Type Department Care Team (Late st Contact Info) Description 02/15/2025 Abstract [facility] [place] [facility] [address] [place] [address] Vitaliy Thomson MD [address] [place] [address] Social History Tobacco Use Types Packs/Day Years [...] [address] [place] [address] Power Swain DO [address] [address] [place] [address] documented as of this encounter Visit Diagnoses Not on filedocumented in this encounter Additional Health Concerns Assessment Noted Time PHQ-9 Depression Total Score: 0 11/30/19 24 9:00 AM EST documented as of this encounter Care Teams Fan Blade Aligner Relationship Specialty Start Date End Date Vitaliy Thomson MD [address] [place] [address] PCP - ACO Reach 03/26/23 Vitaliy Thomson MD [address] [place] [address] PCP - General Family Medicine 05/19/23 04/17/25 Power Swain DO [address] [place] [address] PCP - General Family Medicine 04/18/25 04/24/25 Power Swain DO [address] [facility] [address] [place] [address] PCP - General Family Medicine 04/25/25 Letty Newsome NP [address] [place] [address] Nurse Practitioner Pulmonary Disease 05/19/23 04/17/25 Sima Paul, RN [address] [place] [address] Registered Nurse Family Medicine 08/24/23 documented as of this encounter
--- OUTSIDE RECORDS SUMMARY | 2025-07-19 17:41 | XMS_ITS | Encounter Summary ---
Author Organization [facility] Address [address] [place] [address], [address] [place] [address] Care Team Providers Care Food Safety Manager Name Role Phone Unavailable Primary Care Provider Unavailabl e Encounter Details Date Type Department Care Team (Late st Contact Info) Description 07/19/2018 Telephone [facility] Case Management [address] [place] [address] Sariah Woodward RN Social History Tobacco Use [...]
--- OUTSIDE RECORDS SUMMARY | 2025-07-19 17:41 | XMS_ITS | Encounter Summary ---
Author Organization [facility] Address [address] [facility] [place] [address] Care Team Providers Care Tombstone Erector Helper Name Role Phone Vitaliy Thomson MD Unavailable Vitaliy Thomson MD Primary Care Provider [phone] Fabiola Palumbo NP Unavailable Letty Newsome FORGING PRESS OPERATOR Unavailable [phone] Sima Paul RN Unavailable [phone] Power Swain DO Primary Care Provider [phone] Power Swain DO Primary Care Provider [phone] Encounter Details Date Type Department Care Team (Late st Contact Info) Description 06/06/2024 Abstract [facility] [address] [place] [address] Vitaliy Thomson MD [address] [place] [address] Social History Tobacco Use Types Packs/Day Years [...] [address] [place] [address] Power Swain DO [address] [place] [address] documented as of this encounter Visit Diagnoses Not on filedocumented in this encounter Additional Health Concerns Assessment Noted Time PHQ-9 Depression Total Score: 0 11/30/19 24 9:00 AM EST documented as of this encounter Care Teams Tombstone Erector Helper Relationship Specialty Start Date End Date Vitaliy Thomson MD [address] [place] [address] PCP - ACO Reach 03/26/23 Vitaliy Thomson MD [address] [place] [address] PCP - General Family Medicine 05/19/23 04/17/[address] [place] [address] PCP - General Family Medicine 04/18/25 04/24/25 Power Swain DO [address] [facility] [address] [place] [address] PCP - General Family Medicine 04/25/25 Fabiola Palumbo NP [address] [place] [address] Nurse Practitioner Family Medicine 05/19/23 01/19/25 Letty Newsome NP [address] [place] [address] Nurse Practitioner Pulmonary Disease 05/19/23 04/17/25 Sima Paul, LES [address] [place] [address] Registered Nurse Family Medicine 08/24/23 documented as of this encounter
--- OUTSIDE RECORDS SUMMARY | 2025-07-19 17:41 | XMS_ITS | Encounter Summary ---
Author Organization [facility] Address [address] [place] [address] Care Team Providers Care Directory Compiler Name Role Phone Vitaliy Thomson MD Unavailable [phone] Vitaliy Thomson MD Primary Care Provider [phone] Fabiola Palumbo CORRECTION OFFICER HEAD Unavailable Letty Newsome CORRECTION OFFICER HEAD Unavailable [phone] Sima Paul RN Unavailable [phone] Power Swain DO Primary Care Provider [phone] Power Swain DO Primary Care Provider [phone] Encounter Details Date Type Department Care Team (Late st Contact Info) Description 08/18/2024 Clinisync Result Encounter [facility] External Department Unsolicited Vitaliy Thomson MD [address] [place] [address] Social History Tobacco Use Types [...] [facility] [address] [place] [address] Power Swain DO [address] [place] [address] [place] [address] documented as of this encounter Procedures Procedure Name Priority Date/Time Associated Diagnosis Comments MM TOMOSYNTHESIS SCREENING BI 08/18/2024 3:19 PM EDT documented in this encounter Results * MM TOMOSYNTHESIS SCREENING BI (08/18/2024 3:19 PM EDT) Anatomical Region Laterality Modality Other 08/18/2024 3:19 PM EDT Narrative 08/18/2024 3:20 [place] [address] Mammography Report Signed Patient: MOJGAN PÉREZ MR#: [id number] : 1955 Acct:[id number] Age/Sex: 68 / F ADM Date: 08/18/24 Loc: MAMMO Attending Dr: VITALIY THOMSON Ordering Physician: VITALIY THOMSON Results: Date of Service: 08/18/24 Follow Up: Procedure(s): MM tomosynthesis screening BI Accession Number(s): [id number] cc: VITALIY THOMSON Patient Name: MOJGAN PÉREZ MR#: [id number] : 1955 Exam Date: 08/18/2024 Ordering Doctor: DR VITALIY THOMSON M.D. RADIOLOGY REPORT PROCEDURE: MM TOMOSYNTHESIS [...] lung cancer at age 66. LOCATION: [facility] BREAST COMPOSITION: There are scattered areas of [...] Signed By: 08/18/24 1520 DD/ 1519 TD/TT: Electric Tape Slitter: Procedure Note Radiology, Radiologist, - 08/18/2024 [place] [address] Mammography Report Signed Patient: MOJGAN PÉREZ SMR#: [id number] : 1955cct:[id number] Age/Sex: 68 / FADM Date: 08/18/24 Loc: MAMMO Attending Dr: VITALIY THOMSON Ordering Physician: VITALIY THOMSONResults: Date of Service: 08/18/24Follow Up: Procedure(s): MM tomosynthesis screening BI Accession Number(s): [id number] cc: VITALIY THOMSON Patient Name: MOJGAN PÉREZ MR#: [id number] : 1955 Exam Date: 08/18/2024 Ordering Doctor: DR VITALIY THOMSON M.D. RADIOLOGY REPORT PROCEDURE: MM TOMOSYNTHESIS [...] lung cancer at age 66. LOCATION: [facility] BREAST COMPOSITION: There are scattered areas of [...] M.D. Signed By:08/18/24 1520 DD/ 1519 TD/TT: Electric Tape Slitter: Vitaliy Thomson MD [facility] Final Result documented in this encounter Visit Diagnoses Not on filedocumented in this encounter Additional Health Concerns Assessment Noted Time PHQ-9 Depression Total Score: 0 11/30/19 24 9:00 AM EST documented as of this encounter Care Teams Directory Compiler Relationship Specialty Start Date End Date Vitaliy Thomson MD [address] [place] [address] PCP - ACO Reach 03/26/23 Vitaliy Thomson MD [address] [place] [address] PCP - General Family Medicine 7/18/23 6/16/25 Power Swain DO [address] [place] [address] PCP - General Family Medicine 04/18/25 04/24/25 Power Swain DO [address] [place] [address] PCP - General Family Medicine 04/25/25 Fabiola Palumbo NP [address] [place], [place] [address] Nurse Practitioner Family Medicine 05/19/23 01/19/25 Letty Newsome NP [address] [place] [address] Nurse Practitioner Pulmonary Disease 05/19/23 04/17/25 Sima Paul RN [address] [place] [address] Registered Nurse Family Medicine 08/24/23 documented as of this encounter
--- OUTSIDE RECORDS SUMMARY | 2025-07-19 17:41 | XMS_ITS | Encounter Summary ---
Author Organization [facility] Address [address] [place] [address] Care Team Providers Care Seed Corn Manager Production Name Role Phone Vitaliy Thomson MD Unavailable [phone] Vitaliy Thomson MD Primary Care Provider [phone] Fabiola Palumbo NP Unavailable Letty Newsome SITE COORDINATOR Unavailable [phone] Sima Paul RN Unavailable [phone] Power Swain DO Primary Care Provider [phone] Power Swain DO Primary Care Provider [phone] Encounter Details Date Type Department Care Team (Late st Contact Info) Description 06/29/[address] [facility] [address] [place] [address] Fabiola Marinelli MD [address] [place] [address] Social History Tobacco Use Types Packs/Day Years [...] Family Practice [address], [facility] 340 [place] [address] Power Swain DO [address] [facility] [address] [place] [address] documented as of this encounter Visit Diagnoses Not on filedocumented in this encounter Additional Health Concerns Assessment Noted Time PHQ-9 Depression Total Score: 0 11/30/19 24 9:00 AM EST documented as of this encounter Care Teams Seed Corn Manager Production Relationship Specialty Start Date End Date Vitaliy Thomson MD [address] [place] [address] PCP - ACO Reach 03/26/23 Vitaliy Thomson MD [address] [place] [address] PCP - General Family Medicine 05/19/23 04/17/[address] [place] [address] PCP - General Family Medicine 04/18/25 04/24/25 Power Swain DO [address] [facility] 340 [place] [address] PCP - General Family Medicine 04/25/25 Fabiola Palumbo NP [address] [place] [address] Nurse Practitioner Family Medicine 05/19/23 01/19/25 Letty Newsome NP [address] [place] [address] Nurse Practitioner Pulmonary Disease 05/19/23 04/17/25 Sima Paul, LES [address] [place] [address] Registered Nurse Family Medicine 08/24/23 documented as of this encounter
--- OUTSIDE RECORDS SUMMARY | 2025-07-19 17:41 | XMS_ITS | Encounter Summary ---
Author Organization [facility] Address [address] [place] [address] Care Team Providers Care Art Museum Aide Name Role Phone Vitaliy Thomson MD Unavailable [phone] Sima Paul RN Unavailable [phone] Power Swain DO Primary Care Provider [phone] Encounter Details Date Type Department Care Team (Late st Contact Info) Description 07/07/2025 Patient Outreach [facility] [address] [place] [address] Sima Paul, LES [address] [place] [address] Social History Tobacco Use Types Packs/Day Years [...] Progress Notes * Sima Paul RN - 07/07/2025 9:59 AM EDT Monthly monitor, chart reviewed. BOOM 06/15SEP 12 Pt reports her platelets too low, unable to get her infusion. She hasn't had infusion since Jun She recently traveled to [place] for a visit with her sister. Pt reports she had her liver ablation completed, platelet infusion received 06/22/25. Pt had a cystocopy with Dr. Valenzuela 07/04 -Remains on ATB at this time. She has been sick for a few days, couldn't get out of bed per report. But feeling better now. She will be getting some blood work soon, and will see if she can get her next infusion. Medications reviewed. No refills needed at this time. Late entry-care plan was updated June 07 Printed and mailed to pt. * Sima Paul RN - 07/07/2025 9:59 AM EDT Images from the original note were not included. 07/07/2025 Mojgan Snider [address] [place] [address] Problem: Med Adherence Goal: Consistently take medications as prescribed Intervention: Review medications with each monitor, reconcile meds as needed, evaluate for refill needs and Problem: Diabetes Education Goal: Patient will have sufficient knowledge about diabetes Intervention: Educate the patient on the disease process of diabetes documented in this encounter Plan of Treatment Upcoming Encounters Date Type Department Care Team (Late st Contact Info) Description 2025 10:00 AM EST Office Visit [facility] [address] [place] [address] Power Swain DO [address] [place] [address] documented as of this encounter Visit Diagnoses Diagnosis Essential hypertension- Primary Unspecified essential hypertension Type 2 diabetes mellitus with other specified complication, without long-term current use of insulin (HCC) documented in this encounter Additional Health Concerns Assessment Noted Time PHQ-9 Depression Total Score: 0 11/30/19 24 9:00 AM EST documented as of this encounter Care Teams Art Museum Aide Relationship Specialty Start Date End Date Vitaliy Thomson MD [address] [place] [address] PCP - ACO Reach 03/26/23 Power Swain DO [address] [facility] [address] [place] [address] PCP - General Family Medicine 04/25/25 Sima Paul, LES [address] [place] [address] Registered Nurse Family Medicine 08/24/23 documented as of this encounter
--- OUTSIDE RECORDS SUMMARY | 2025-07-19 17:41 | XMS_ITS | Encounter Summary ---
Author Organization [facility] Address [address] [place] [address] Care Team Providers Care Cell Phone Repair Technician Name Role Phone Vitaliy Thomson MD Unavailable [phone] Sima Paul RN Unavailable [phone] Power Swain DO Primary Care Provider [phone] Encounter Details Date Type Department Care Team (Late st Contact Info) Description 07/05/2025 External Result Encounter [facility] External Department Unsolicited Fabiola Marinelli MD [address] [place] [address] Social History Tobacco Use Types [...] [address], [address] [place] [address] Power Swain, DO [address] [place] [address] documented as of this encounter Procedures Procedure Name Priority Date/Time Associated Diagnosis Comments COMPREHENSIVE METABOLIC PANEL STAT 07/05/2025 10:07 AM EDT documented in this encounter Results * (ABNORMAL) Comprehensive metabolic panel (07/05/2025 10:07 AM EDT) Glucose 106(H) 70 - 100 mg/dL 07/05/2025 12:23 PM EDT [facility] Comment: Random Glucose Reference Range is dependent on time and content of last meal. Glucose of more than 200 mg/dL in a nonstressed, ambulatory subject supports the diagnosis of Diabetes Mellitus. ADA recommended reference range BUN 15 7 - 25 mg/dL 07/05/2025 12:23 PM EDT [facility] CREATININE 0.88 0.60 - 1.20 mg/dL 07/05/2025 12:23 PM EDT [facility] ESTIMATED GFR >60.0 07/05/2025 12:23 PM EDT [facility] Sodium 140 136 - 145 mmol/L 07/05/2025 12:23 PM EDT [facility] Potassium, Bld 4.1 3.5 - 5.1 mmol/L 07/05/2025 12:23 PM EDT [facility] Chloride 106 98 - 107 mmol/L 07/05/2025 12:23 PM EDT [facility] Carbon Dioxide 28.6 21.0 - 31.0 mmol/L 07/05/2025 12:23 PM EDT [facility] Anion Gap 9.5 6.0 - 15.0 07/05/2025 12:23 PM EDT [facility] Calcium 8.9 8.6 - 10.3 mg/dL 07/05/2025 12:23 PM EDT [facility] TOTAL PROTEIN 5.5(L) 6.4 - 8.9 g/dL 07/05/2025 12:23 PM EDT [facility] ALBUMIN LEVEL 3.6 3.5 - 5.7 g/dL 07/05/2025 12:23 PM EDT [facility] GLOBULIN 1.9 g/dL 07/05/2025 12:23 PM EDT [facility] ALBUMIN/GLOBULIN RATIO 1.9 07/05/2025 12:23 PM EDT [facility] BILIRUBIN,TOTAL 0.9 0.3 - 1.0 mg/dL 07/05/2025 12:23 PM EDT [facility] ASPARTATE AMINO TRANSFERASE 29 13 - 39 U/L 07/05/2025 12:23 PM EDT [facility] ALANINE AMINOTRANSFERASE 18 7 - 52 U/L 07/05/2025 12:23 PM EDT [facility] ALKALINE PHOSPHATASE 101 34 - 104 U/L 07/05/2025 12:23 PM EDT [facility] CREATININE CLR [facility] 63.55 07/05/2025 12:23 PM EDT [facility] Other Topography unknown / Unknown 07/05/2025 10:07 AM EDT 07/05/2025 10:48 AM EDT us Fabiola Marinelli MD LAB BLOOD ORDERABLES Final Resul t [facility] [address] [place] [address], [facility] [address] [place] [address] documented in this encounter Visit Diagnoses Not on filedocumented in this encounter Additional Health Concerns Assessment Noted Time PHQ-9 Depression Total Score: 0 11/30/19 24 9:00 AM EST documented as of this encounter Care Teams Cell Phone Repair Technician Relationship Specialty Start Date End Date Vitaliy Thomson MD [address] [place] [address] PCP - ACO Reach 03/26/23 Power Swain DO [address] [place] [address] PCP - General Family Medicine 04/25/25 Sima Paul, LES [address] [place] [address] Registered Nurse Family Medicine 08/24/23 documented as of this encounter
--- OUTSIDE RECORDS SUMMARY | 2025-07-19 17:41 | XMS_ITS | Encounter Summary ---
Author Organization [facility] Address [address] [facility] [place] [address] Care Team Providers Care Milieu Manager Name Role Phone Vitaliy Thomson MD Unavailable [phone] Vitaliy Thomson MD Primary Care Provider [phone] Fabiola Palumbo NP Unavailable Letty Newsome NP Unavailable [phone] Sima Paul RN Unavailable [phone] Power Swain DO Primary Care Provider [phone] Power Swain DO Primary Care Provider [phone] Encounter Details Date Type Department Care Team (Late st Contact Info) Description 07/01/2024 [facility] [address] [place] [address] Fabiola Palumbo NP [address] [facility] [address] [place] [address] Social History Tobacco Use Types Packs/Day Years [...] [address], [address] [place] [address] Power Swain DO [address] [place] [address] documented as of this encounter Procedures Procedure Name Priority Date/Time Associated Diagnosis Comments DIABETIC RETINOPATHY SCREENING - OU - BOTH EYES Routine 07/01/2024 9:34 PM EDT documented in this encounter Results * Diabetic Retinopathy Screening - OU - Both Eyes (07/01/2024 9:34 PM EDT) Anatomical Region Laterality Modality Head Other Fabiola Palumbo WASH TANK TENDER OPHTH PHOTOGRAPHY Final Result documented in this encounter Visit Diagnoses Not on filedocumented in this encounter Additional Health Concerns Assessment Noted Time PHQ-9 Depression Total Score: 0 11/30/19 24 9:00 AM EST documented as of this encounter Care Teams Milieu Manager Relationship Specialty Start Date End Date Vitaliy Thomson MD [address] [place] [address] PCP - ACO Reach 03/26/23 Vitaliy Thomson MD [address] [place] [address] PCP - General Family Medicine 05/19/23 04/17/25 Power Swain DO [address] [place] [address] PCP - General Family Medicine 04/18/25 04/24/25 Power Swain DO [address] [place] [address] PCP - General Family Medicine 04/25/25 Fabiola Palumbo NP [address] [place] [address] Nurse Practitioner Family Medicine 05/19/23 01/19/25 Letty Newsome NP [address] [place] [address] Nurse Practitioner Pulmonary Disease 05/19/23 04/17/25 Sima Paul, LES [address] [place] [address] Registered Nurse Family Medicine 08/24/23 documented as of this encounter
--- OUTSIDE RECORDS SUMMARY | 2025-07-19 17:41 | XMS_ITS | Encounter Summary ---
Author Organization [facility] Address [address] [facility] [place] [address] Care Team Providers Care Food Mixer Assembler Name Role Phone Vitaliy Thomson MD Unavailable [phone] Vitaliy Thomson MD Primary Care Provider [phone] Fabiola Palumbo NP Unavailable Letty Newsome NP Unavailable [phone] Sima Paul RN Unavailable [phone] Power Swain DO Primary Care Provider [phone] Power Swain DO Primary Care Provider [phone] Encounter Details Date Type Department Care Team (Late st Contact Info) Description 05/30/2024 Abstract [facility] [place] [facility] [address] [place] [address] Fabiola Palumbo NP [address] [facility] [address] [place] [address] Social History Tobacco Use Types Packs/Day Years [...] [address] [place] [address] Power Swain DO [address] [place] [address] documented as of this encounter Visit Diagnoses Not on filedocumented in this encounter Additional Health Concerns Assessment Noted Time PHQ-9 Depression Total Score: 0 11/30/19 24 9:00 AM EST documented as of this encounter Care Teams Food Mixer Assembler Relationship Specialty Start Date End Date Vitaliy Thomson MD [address] [place] [address] PCP - ACO Reach 03/26/23 Vitaliy Thomson MD [address] [place] [address] PCP - General Family Medicine 05/19/23 04/17/[address] [place] [address] PCP - General Family Medicine 04/18/25 04/24/25 Power Swain DO [address] [facility] [address] [place] [address] PCP - General Family Medicine 04/25/25 Fabiola Palumbo NP [address] [place] [address] Nurse Practitioner Family Medicine 05/19/23 01/19/25 Letty Newsome NP [address] [place] [address] Nurse Practitioner Pulmonary Disease 05/19/23 04/17/25 Sima Paul, LES [address] [place] [address] Registered Nurse Family Medicine 08/24/23 documented as of this encounter
--- OUTSIDE RECORDS SUMMARY | 2025-07-19 17:41 | XMS_ITS | Encounter Summary ---
Author Organization [facility] Address [address] [facility] [facility] [place] [address] Care Team Providers Care Information Assurance Manager Name Role Phone Vitaliy Thomson MD Unavailable [phone] Vitaliy Thomson MD Primary Care Provider [phone] Letty Newsome SLOT SHIFT SUPERVISOR Unavailable [phone] Sima Paul RN Unavailable [phone] Power Swain DO Primary Care Provider [phone] Power Swain DO Primary Care Provider [phone] Encounter Details Date Type Department Care Team (Late st Contact Info) Description 04/03/2025 Abstract [facility] [place] [facility] [address] [place] [address] Vitaliy Thomson MD [address] [place] [address] Social History Tobacco Use Types Packs/Day Years [...] [address] [place] [address] Power Swain DO [address] [place] [address] documented as of this encounter Visit Diagnoses Not on filedocumented in this encounter Additional Health Concerns Assessment Noted Time PHQ-9 Depression Total Score: 0 11/30/19 24 9:00 AM EST documented as of this encounter Care Teams Information Assurance Manager Relationship Specialty Start Date End Date Vitaliy Thomson MD [address] [place] [address] PCP - ACO Reach 03/26/23 Vitaliy Thomson MD [address] [place] [address] PCP - General Family Medicine 05/19/23 04/17/25 Power Swain DO [address] [place] [address] PCP - General Family Medicine 04/18/25 04/24/25 Power Swain DO [address] [facility] [address] [place] [address] PCP - General Family Medicine 04/25/25 Letty Newsome NP [address] [place] [address] Nurse Practitioner Pulmonary Disease 05/19/23 04/17/25 Sima Paul, RN [address] [place] [address] Registered Nurse Family Medicine 08/24/23 documented as of this encounter
--- OUTSIDE RECORDS SUMMARY | 2025-07-19 17:41 | XMS_ITS | Encounter Summary ---
Author Organization [facility] Address [address] [facility] [place] [address] Care Team Providers Care Director Of Food And Beverage Services Name Role Phone Vitaliy Thomson MD Unavailable [phone] Sima Paul RN Unavailable [phone] Power Swain DO Primary Care Provider [phone] Power Swain DO Primary Care Provider [phone] Encounter Details Date Type Department Care Team (Late st Contact Info) Description 04/20/2025 Abstract [facility] [address] [place] [address] Power Swain DO [address] [address] [place] [address] Social History Tobacco Use Types Packs/Day Years Used Date Smoking Tobacco: Former Cigarettes Smokeless Tobacco: Former Alcohol Use Standard Drinks/Week Comments Never 0 (1 standard drink = 0.6 oz pure alcohol) cafffeine intake: 1-2 cups per day AUDIT-C Answer Date Recorded Q1: How often do you have a drink containing alcohol? Never 04/10/2025 Q2: How many drinks containi ng alcohol do you have on a typical day when you are drinking? Patient does not drink Q3: How often do you have si x or more drinks on one occasion? Never 04/10/2025 PHQ-2 Answer Date Recorded Patient Health Questionnaire-2 Score 0 04/10/2025 Comments No Sex and Gender Information Value [...] [address], [address] [place] [address] Power Swain DO [address] [place] [address] documented as of this encounter Visit Diagnoses Not on filedocumented in this encounter Additional Health Concerns Assessment Noted Time PHQ-9 Depression Total Score: 0 11/30/19 24 9:00 AM EST documented as of this encounter Care Teams Director Of Food And Beverage Services Relationship Specialty Start Date End Date Vitaliy Thomson MD [address] [place] [address] PCP - ACO Reach 03/26/23 Power Swain DO [address] [place] [address] PCP - General Family Medicine 04/18/25 04/24/25 Power Swain DO [address] [facility] [address] [place] [address] PCP - General Family Medicine 04/25/25 Sima Paul, [place] [address] [place] [address] Registered Nurse Family Medicine 08/24/23 documented as of this encounter
--- OUTSIDE RECORDS SUMMARY | 2025-07-19 17:41 | XMS_ITS | Encounter Summary ---
Author Organization [facility] Address [address] [place] [address] Care Team Providers Care Life Cycle Assessment Analyst Name Role Phone Vitaliy Thomson MD Unavailable [phone] Sima Paul RN Unavailable [phone] Power Swain DO Primary Care Provider [phone] Encounter Details Date Type Department Care Team (Late st Contact Info) Description 06/19/2025 Abstract [facility] [address], [facility] 340 [place] [address] Power Swain DO [address] [facility] [address] [place] [address] Social History Tobacco Use Types Packs/Day Years [...] Family Practice [address], [place] [address] [place] [address] Power Swain DO [address] [facility] 340 [place] [address] documented as of this encounter Visit Diagnoses Not on filedocumented in this encounter Additional Health Concerns Assessment Noted Time PHQ-9 Depression Total Score: 0 11/30/19 24 9:00 AM EST documented as of this encounter Care Teams Life Cycle Assessment Analyst Relationship Specialty Start Date End Date Vitaliy Thomson MD [address] [place] [place] [address] PCP - ACO Reach 03/26/23 Power Swain DO [address] [place] [address] [place] [address] PCP - General Family Medicine 04/25/25 Sima Paul RN [address] [place] [address] Registered Nurse Family Medicine 08/24/23 documented as of this encounter
--- OUTSIDE RECORDS SUMMARY | 2025-07-19 17:41 | XMS_ITS | Encounter Summary ---
Author Organization [facility] Address [address] [place] [address] Care Team Providers Care Receiver/Laborer Name Role Phone Vitaliy Thomson MD Unavailable [phone] Sima Paul RN Unavailable [phone] Power Swain DO Primary Care Provider [phone] Encounter Details Date Type Department Care Team (Late st Contact Info) Description 06/16/2025 Abstract [facility] [address], [facility] 340 [place] [address] Power Swain DO [address] [facility] [address] [place] [address] Social History Tobacco Use Types Packs/Day Years [...] Family Practice [address], [place] [address] [place] [address] Power Swain DO [address] [facility] 340 [place] [address] documented as of this encounter Visit Diagnoses Not on filedocumented in this encounter Additional Health Concerns Assessment Noted Time PHQ-9 Depression Total Score: 0 11/30/19 24 9:00 AM EST documented as of this encounter Care Teams Receiver/Laborer Relationship Specialty Start Date End Date Vitaliy Thomson MD [address] [place] [address] PCP - ACO Reach 03/26/23 Power Swain DO [address] [place] [address] [place] [address] PCP - General Family Medicine 04/25/25 Sima Paul RN [address] [place] [address] Registered Nurse Family Medicine 08/24/23 documented as of this encounter
--- OUTSIDE RECORDS SUMMARY | 2025-07-19 17:41 | XMS_ITS | Encounter Summary ---
Author Organization [facility] Address [address] [facility] [place] [address] Care Team Providers Care Overnight Houseperson Name Role Phone Vitaliy Thomson MD Unavailable [phone] Vitaliy Thomson MD Primary Care Provider [phone] Fabiola Palumbo NP Unavailable Letty Newsome NP Unavailable [phone] Sima Paul RN Unavailable [phone] Power Swain DO Primary Care Provider [phone] Power Swain DO Primary Care Provider [phone] Encounter Details Date Type Department Care Team (Late st Contact Info) Description 08/27/2024 [facility] [address] [place] [address] Fabiola Palumbo NP [address] [facility] [address] [place] [address] Social History Tobacco Use Types Packs/Day Years [...] [address] [place] [address] Power Swain DO [address] [place] [address] documented as of this encounter Visit Diagnoses Not on filedocumented in this encounter Additional Health Concerns Assessment Noted Time PHQ-9 Depression Total Score: 0 11/30/19 24 9:00 AM EST documented as of this encounter Care Teams Overnight Houseperson Relationship Specialty Start Date End Date Vitaliy Thomson MD [address] [place] [address] PCP - ACO Reach 03/26/23 Vitaliy Thomson MD [address] [place] [address] PCP - General Family Medicine 05/19/23 04/17/[address] [place] [address] PCP - General Family Medicine 04/18/25 04/24/25 Power Swain DO [address] [facility] 340 [place] [address] PCP - General Family Medicine 04/25/25 Fabiola Palumbo NP [address] [place] [address] Nurse Practitioner Family Medicine 05/19/23 01/19/25 Letty Newsome NP [address] [place] [address] Nurse Practitioner Pulmonary Disease 05/19/23 04/17/25 Sima Paul, LES [address] [place] [address] Registered Nurse Family Medicine 08/24/23 documented as of this encounter
--- OUTSIDE RECORDS SUMMARY | 2025-07-19 17:41 | XMS_ITS | Encounter Summary ---
Author Organization [facility] Address [address] [place] [address] Care Team Providers Care Drug Abuse Technician Name Role Phone Vitaliy Thomson MD Unavailable [phone] Sima Paul RN Unavailable [phone] Power Swain DO Primary Care Provider [phone] Encounter Details Date Type Department Care Team (Late st Contact Info) Description 07/19/2025 External Result Encounter [facility] External Department Unsolicited Fabiola Marinelli MD [address] [place] [address] Social History Tobacco Use Types [...] [address] [place] [address] Power Swain, DO [address] [place] [address] documented as of this encounter Procedures Procedure Name Priority Date/Time Associated Diagnosis Comments COMPREHENSIVE METABOLIC PANEL STAT 07/19/2025 9:45 AM EDT documented in this encounter Results * (ABNORMAL) Comprehensive metabolic panel (07/19/2025 9:45 AM EDT) Glucose 93 70 - 100 mg/dL 07/19/2025 10:28 AM EDT [facility] Comment: Random Glucose Reference Range is dependent on time and content of last meal. Glucose of more than 200 mg/dL in a nonstressed, ambulatory subject supports the diagnosis of Diabetes Mellitus. ADA recommended reference range BUN 16 7 - 25 mg/dL 07/19/2025 10:28 AM EDT [facility] CREATININE 1.20 0.60 - 1.20 mg/dL 07/19/2025 10:28 AM EDT [facility] ESTIMATED GFR 49.613 07/19/2025 10:28 AM EDT [facility] Sodium 137 136 - 145 mmol/L 07/19/2025 10:28 AM EDT [facility] Potassium, Bld 4.1 3.5 - 5.1 mmol/L 07/19/2025 10:28 AM EDT [facility] Chloride 104 98 - 107 mmol/L 07/19/2025 10:28 AM EDT [facility] Carbon Dioxide 28.7 21.0 - 31.0 mmol/L 07/19/2025 10:28 AM EDT [facility] Anion Gap 8.4 6.0 - 15.0 07/19/2025 10:28 AM EDT [facility] Calcium 8.2(L) 8.6 - 10.3 mg/dL 07/19/2025 10:28 AM EDT [facility] TOTAL PROTEIN 5.5(L) 6.4 - 8.9 g/dL 07/19/2025 10:28 AM EDT [facility] ALBUMIN LEVEL 3.5 3.5 - 5.7 g/dL 07/19/2025 10:28 AM EDT [facility] GLOBULIN 2.0 g/dL 07/19/2025 10:28 AM EDT [facility] ALBUMIN/GLOBULIN RATIO 1.8 07/19/2025 10:28 AM EDT [facility] BILIRUBIN,TOTAL 1.1(H) 0.3 - 1.0 mg/dL 07/19/2025 10:28 AM EDT [facility] ASPARTATE AMINO TRANSFERASE 24 13 - 39 U/L 07/19/2025 10:28 AM EDT [facility] ALANINE AMINOTRANSFERASE 13 7 - 52 U/L 07/19/2025 10:28 AM EDT [facility] ALKALINE PHOSPHATASE 108(H) 34 - 104 U/L 07/19/2025 10:28 AM EDT [facility] CREATININE CLR [facility] 46.14 07/19/2025 10:28 AM [facility] Other Topography unknown / Unknown 07/19/2025 9:45 AM EDT 07/19/2025 9:55 AM EDT Fabiola Marinelli MD LAB BLOOD ORDERABLES Final Resul t [facility] [address] [place] [address], [facility] [address] [place] [address] documented in this encounter Visit Diagnoses Not on filedocumented in this encounter Additional Health Concerns Assessment Noted Time PHQ-9 Depression Total Score: 0 11/30/19 24 9:00 AM EST documented as of this encounter Care Teams Drug Abuse Technician Relationship Specialty Start Date End Date Vitaliy Thomson MD [address] [place] [address] PCP - ACO Reach 03/26/23 Power Swain DO [address] [place] [address] [address] PCP - General Family Medicine 04/25/25 Sima Paul, LES [address] [place] [address] Registered Nurse Family Medicine 08/24/23 documented as of this encounter
--- OUTSIDE RECORDS SUMMARY | 2025-07-19 17:41 | XMS_ITS | Clinical Summary ---
Author Organization [facility] Address [address] [place] [address], [address] [place] [address] Care Team Providers Care Cra Officer Name Role Phone Unavailable Primary Care Provider [...]
--- OUTSIDE RECORDS SUMMARY | 2025-07-19 17:41 | XMS_ITS | Encounter Summary ---
Author Organization [facility] Address [address] [facility] [address] Care Team Providers Care Heel Room Supervisor Name Role Phone Vitaliy Thomson MD Unavailable [phone] Vitaliy Thomson MD Primary Care Provider [phone] Letty Newsome BURNING PLANT OPERATOR Unavailable [phone] Sima Paul RN Unavailable [phone] Power Swain DO Primary Care Provider [phone] Power Swain DO Primary Care Provider [phone] Encounter Details Date Type Department Care Team (Late st Contact Info) Description 04/03/2025 Abstract [facility] [address] [place] [phone] Vitaliy Thomson MD [address] [place] [address] Social History Tobacco Use Types Packs/Day Years [...] [address] [place] [address] Power Swain DO [address] [place] [address] documented as of this encounter Visit Diagnoses Not on filedocumented in this encounter Additional Health Concerns Assessment Noted Time PHQ-9 Depression Total Score: 0 11/30/19 24 9:00 AM EST documented as of this encounter Care Teams Heel Room Supervisor Relationship Specialty Start Date End Date Vitaliy Thomson MD [address] [place] [address] PCP - ACO Reach 03/26/23 Vitaliy Thomson MD [address] [place] [address] PCP - General Family Medicine 05/19/23 04/17/25 Power Swain DO [address] [place] [address] PCP - General Family Medicine 04/18/25 04/24/25 Power Swain DO [address] [facility] [address] [place] [address] PCP - General Family Medicine 04/25/25 Letty Newsome NP [address] [place] [address] Nurse Practitioner Pulmonary Disease 05/19/23 04/17/25 Sima Paul, RN [address] [place] [address] Registered Nurse Family Medicine 08/24/23 documented as of this encounter
--- OUTSIDE RECORDS SUMMARY | 2025-07-19 17:41 | XMS_ITS | Encounter Summary ---
Author Organization [facility] Address [address] [facility] [place] [address] Care Team Providers Care Broodmare Foreman Name Role Phone Vitaliy Thomson MD Unavailable [phone] Vitaliy Thomson MD Primary Care Provider [phone] Fabiola Palumbo NP Unavailable Letty Newsome NP Unavailable [phone] Sima Paul RN Unavailable [phone] Power Swain DO Primary Care Provider [phone] Power Swain DO Primary Care Provider [phone] Encounter Details Date Type Department Care Team (Late st Contact Info) Description 05/30/2024 [facility] [address] [place] [address] Fabiola Palumbo NP [address] [facility] [address] [place] [address] Social History Tobacco Use Types Packs/Day Years [...] [address] [place] [address] Power Swain DO [address] [place] [address] documented as of this encounter Visit Diagnoses Not on filedocumented in this encounter Additional Health Concerns Assessment Noted Time PHQ-9 Depression Total Score: 0 11/30/19 24 9:00 AM EST documented as of this encounter Care Teams Broodmare Foreman Relationship Specialty Start Date End Date Vitaliy Thomson MD [address] [place] [address] PCP - ACO Reach 03/26/23 Vitaliy Thomson MD [address] [place] [address] PCP - General Family Medicine 05/19/23 04/17/[address] [place] [address] PCP - General Family Medicine 04/18/25 04/24/25 Power Swain DO [address] [facility] [address] [place] [address] PCP - General Family Medicine 04/25/25 Fabiola Palumbo NP [address] [place] [address] Nurse Practitioner Family Medicine 05/19/23 01/19/25 Letty Newsome NP [address] [place] [address] Nurse Practitioner Pulmonary Disease 05/19/23 04/17/25 Sima Paul, LES [address] [place] [address] Registered Nurse Family Medicine 08/24/23 documented as of this encounter
--- OUTSIDE RECORDS SUMMARY | 2025-07-19 17:41 | XMS_ITS | Encounter Summary ---
Author Organization [facility] Address [address] [place] [address] Care Team Providers Care Metal Miner Blasting Name Role Phone Vitaliy Thomson MD Unavailable [phone] Sima Paul RN Unavailable [phone] Power Swain DO Primary Care Provider [phone] Encounter Details Date Type Department Care Team (Late st Contact Info) Description 06/15/2025 Abstract [facility] [address] [place], [facility] [address] [place] [address] Power Swain DO [address] [place] [address] Social History Tobacco Use Types Packs/Day Years [...] [address] [place] [address] Power Swain DO [address] [place] [address] documented as of this encounter Visit Diagnoses Not on filedocumented in this encounter Additional Health Concerns Assessment Noted Time PHQ-9 Depression Total Score: 0 11/30/19 9:00 AM EST documented as of this encounter Care Teams Metal Miner Blasting Relationship Specialty Start Date End Date Vitaliy Thomson MD [address] [place] [address] PCP - ACO Reach 03/26/23 Power Swain DO [address] [place] [address] PCP - General Family Medicine 04/25/25 Sima Paul, LES [address] [place] [address] Registered Nurse Family Medicine 08/24/23 documented as of this encounter
--- OUTSIDE RECORDS SUMMARY | 2025-07-19 17:41 | XMS_ITS | Encounter Summary ---
Author Organization [facility] Address [address] [place] [address] Care Team Providers Care Rotary Drum Tanner Name Role Phone Vitaliy Thomson MD Unavailable [phone] Sima Paul RN Unavailable [phone] Power Swain DO Primary Care Provider [phone] Encounter Details Date Type Department Care Team (Late st Contact Info) Description 07/05/2025 External Result Encounter [facility] External Department Unsolicited Fabiola Marinelli MD [address] [place] [address] Social History Tobacco Use Types [...] [address] [place] [address] Power Swain, DO [address] [place] [address] Pending Results Name Type Priority Associated Diagnoses Date /Time CBC auto differential Lab STAT 12/2024 10:07 AM EDT documented as of this encounter Procedures Procedure Name Priority Date/Time Associated Diagnosis Comments SCAN AND CBC STAT 07/05/2025 10:07 AM EDT documented in this encounter Results * (ABNORMAL) SCAN AND CBC (07/05/2025 10:07 AM EDT) WBC 1.5(L) 3.8 - 11.6 [CFU]/mL 07/05/2025 12:26 PM EDT [facility] UNCORRECTED WHITE BLOOD COUNT 1.5(L) 3.8 - 11.6 10*3/uL 07/05/2025 12:26 PM EDT [facility] RBC 3.25(L) 3.60 - 5.00 10*6/uL 07/05/2025 12:26 PM EDT [facility] HEMOGLOBIN 10.8(L) 11.8 - 15.4 g/dL 07/05/2025 12:26 PM EDT [facility] HEMATOCRIT 32.0(L) 34.0 - 46.4 % 07/05/2025 12:26 PM EDT [facility] MCV 98.4 80 - 100 fL 07/05/2025 12:26 PM EDT [facility] MCH 33.2 24.7 - 34.3 pg 07/05/2025 12:26 PM EDT [facility] MCHC 33.8 32.0 - 35.0 g/dL 07/05/2025 12:26 PM EDT [facility] RED CELL DISTRIBUTION WIDTH, RDW 15.2 11.9 - 15.3 % 07/05/2025 12:26 PM EDT [facility] PLATELET COUNT 43(L) 150 - 450 10*3/uL 07/05/2025 12:26 PM EDT [facility] MEAN PLATELET VOLUME, MPV 8.5 6.3 - 10.7 fL 07/05/2025 12:26 PM EDT [facility] NEUTROPHILS, % 35.3 . % 07/05/2025 1:34 PM EDT [facility] LYMPHOCYTES, % 18.7 . % 07/05/2025 1:34 PM EDT [facility] MONOCYTE/MACROPH AGE, % 21.0 . % 07/05/2025 1:34 PM EDT [facility] EOSINOPHILS, % 24.4 . % 07/05/2025 1:34 PM EDT [facility] BASOPHILS, % 0.6 . % 07/05/2025 1:34 PM EDT [facility] NRBC 0.2 0 - 0.5 /100{WBC} 07/05/2025 1:34 PM EDT [facility] NEUTROPHILS 0.5(L) 1.8 - 7.7 10*3/uL 07/05/2025 1:34 PM EDT [facility] LYMPHOCYTES 0.3(L) 1.00 - 4.8 10*3/uL 07/05/2025 1:34 PM EDT [facility] MONOCYTES 0.3 0.0 - 0.8 10*3/uL 07/05/2025 1:34 PM EDT [facility] EOSINOPHILS 0.4 0.0 - 0.45 10*3/uL 07/05/2025 1:34 PM EDT [facility] BASOPHILS 0.0 0.0 - 0.2 10*3/uL 07/05/2025 1:34 PM EDT [facility] OVALOCYTES Slight 07/05/2025 1:34 PM EDT [facility] PLATELET ESTIMATE Decreased Normal 07/05/2025 1:34 PM EDT [facility] PLATELET MORPHOLOGY Normal Normal 07/05/2025 1:34 PM EDT [facility] Blood (Blood) 07/05/2025 10: 07 AM EDT 07/05/2025 10:48 AM EDT us Fabiola Marinelli MD LAB BLOOD ORDERABLES Final Resul t [facility] [address] [place] [address], [facility] [address] [place] [address] documented in this encounter Visit Diagnoses Not on filedocumented in this encounter Additional Health Concerns Assessment Noted Time PHQ-9 Depression Total Score: 0 11/30/19 24 9:00 AM EST documented as of this encounter Care Teams Rotary Drum Tanner Relationship Specialty Start Date End Date Vitaliy Thomson MD [address] [place] [address] PCP - ACO Reach 03/26/23 Power Swain DO [address] [place] [address] [place] [address] PCP - General Family Medicine 04/25/25 Sima Paul, LES [address] [place] [address] Registered Nurse Family Medicine 08/24/23 documented as of this encounter
--- OUTSIDE RECORDS SUMMARY | 2025-07-19 17:41 | XMS_ITS | Encounter Summary ---
Author Organization [facility] Address [address] [facility] [place] [address] Care Team Providers Care Experimental Worker Name Role Phone Vitaliy Thomson MD Unavailable [phone] Vitaliy Thomson MD Primary Care Provider [phone] Fabiola Palumbo NP Unavailable Letty Newsome NP Unavailable [phone] Sima Paul RN Unavailable [phone] Power Swain DO Primary Care Provider [phone] Power Swain DO Primary Care Provider [phone] Encounter Details Date Type Department Care Team (Late st Contact Info) Description 09/14/2024 Abstract [facility] [address] [place] [address] Fabiola Palumbo NP [address] [facility] [address] [place] [address] Social History Tobacco Use Types Packs/Day Years [...] [address] [place] [address] Power Swain DO [address] [place] [address] documented as of this encounter Visit Diagnoses Not on filedocumented in this encounter Additional Health Concerns Assessment Noted Time PHQ-9 Depression Total Score: 0 11/30/19 24 9:00 AM EST documented as of this encounter Care Teams Experimental Worker Relationship Specialty Start Date End Date Vitaliy Thomson MD [address] [place] [address] PCP - ACO Reach 03/26/23 Vitaliy Thomson MD [address] [place] [address] PCP - General Family Medicine 05/19/23 04/17/[address] [place] [address] PCP - General Family Medicine 04/18/25 04/24/25 Power Swain DO [address] [facility] [address] [place] [address] PCP - General Family Medicine 04/25/25 Fabiola Palumbo NP [address] [place] [address] Nurse Practitioner Family Medicine 05/19/23 01/19/25 Letty Newsome NP [address] [place] [address] Nurse Practitioner Pulmonary Disease 05/19/23 04/17/25 Sima Paul, LES [address] [place] [address] Registered Nurse Family Medicine 08/24/23 documented as of this encounter
--- OUTSIDE RECORDS SUMMARY | 2025-07-19 17:41 | XMS_ITS | Encounter Summary ---
Author Organization [facility] Address [address] [facility] [place] [address] Care Team Providers Care Body Technician/Painter Name Role Phone Vitaliy Thomson MD Unavailable [phone] Vitaliy Thomson MD Primary Care Provider [phone] Fabiola Palumbo NP Unavailable Letty Newsome NP Unavailable [phone] Sima Paul RN Unavailable [phone] Power Swain DO Primary Care Provider [phone] Power Swain DO Primary Care Provider [phone] Encounter Details Date Type Department Care Team (Late st Contact Info) Description 07/01/2024 Abstract [facility] [address] [place] [address] Fabiola Palumbo NP [address] [facility] [address] [place] [address] Social History Tobacco Use Types Packs/Day Years [...] [address] [place] [address] Power Swain DO [address] [place] [address] documented as of this encounter Visit Diagnoses Not on filedocumented in this encounter Additional Health Concerns Assessment Noted Time PHQ-9 Depression Total Score: 0 11/30/19 24 9:00 AM EST documented as of this encounter Care Teams Body Technician/Painter Relationship Specialty Start Date End Date Vitaliy Thomson MD [address] [place] [address] PCP - ACO Reach 03/26/23 Vitaliy Thomson MD [address] [place] [address] PCP - General Family Medicine 05/19/23 04/17/[address] [place] [address] PCP - General Family Medicine 04/18/25 04/24/25 Power Swain DO [address] [facility] [address] [place] [address] PCP - General Family Medicine 04/25/25 Fabiola Palumbo NP [address] [place] [address] Nurse Practitioner Family Medicine 05/19/23 01/19/25 Letty Newsome NP [address] [place] [address] Nurse Practitioner Pulmonary Disease 05/19/23 04/17/25 Sima Paul, [place]ES [address] [place] [address] Registered Nurse Family Medicine 08/24/23 documented as of this encounter
--- OUTSIDE RECORDS SUMMARY | 2025-07-19 17:41 | XMS_ITS | Encounter Summary ---
Author Organization [facility] Address [address] [place] [address] Phone Care Team Providers Care Registrar Nurses' Registry Name Role Phone Supa Lindquist MD PhD Unavailable [phone] Jessica Grove RN Unavailable Unavailable Fabiola Marinelli MD Primary Care Provider Lisette Perkins SENIOR ANALYTICAL CHEMIST-DIGITAL ASSET COORDINATOR Unavailable [phone] Theresa Romano MD PhD Unavailable [phone] Negro Epps MD PhD Unavailable [phone] Power Swain DO Primary Care Provider [phone] Reason for Visit * Reason Comments Med Refill Encounter Details Date Type Department Care Team (Late st Contact Info) Description 06/18/2024 Refill [facility] [address] [place] [address] Supa Lindquist MD PhD [address] [place] [address] Multiple myeloma not having achieved remission (Multi) [...] place to sleep or slept in a fdc (including now)? No 11/19/2023 Comments Unknown Sex and Gender Information Value Date Recorded Sex Assigned at Not on file Legal Sex Female 4:17 PM EST Gender Identity Not on file Sexual Orientation Straight 06/22/2025 6: 11 AM EDT COVID-19 Exposure Response Date Recorded In the [...] documented as of this encounter Care Teams Registrar Nurses' Registry Relationship Specialty Start Date End Date Fabiola Marinelli MD [address] [place] [address] PCP - General Hematology and Oncology 08/22/23 05/08/25 Power Swain DO [address] [place] [address] PCP - General Family Medicine 05/09/25 [place] [address] [place] [address] Consulting Physician Hematology and Oncology 08/03/23 Jessica Grove, bible teacher Coordinator Case Management 08/04/23 Lisette Perkins, SENIOR ANALYTICAL CHEMIST-[facility] [address] [place] [address] Nurse Practitioner Hematology and Oncology 09/14/23 [place] PhD [address] [place] [address] Consulting Physician Hematology and Oncology 11/18/23 [place] [address] [place] [address] Consulting Physician Hematology and Oncology 01/19/24 documented as of this encounter
--- OUTSIDE RECORDS SUMMARY | 2025-07-19 17:41 | XMS_ITS | Encounter Summary ---
Author Organization [facility] Address [address] [place] [address] Care Team Providers Care Shellfish Dredge Operator Name Role Phone Vitaliy Thomson MD Unavailable [phone] Vitaliy Thomson MD Primary Care Provider [phone] Fabiola Palumbo NP Unavailable Letty Newsome ADMINISTRATIVE OPERATIONS COORDINATOR Unavailable [phone] Sima Paul RN Unavailable [phone] Power Swain DO Primary Care Provider [phone] Power Swain DO Primary Care Provider [phone] Encounter Details Date Type Department Care Team [...] [address] [place] [address] Power Swain, DO [address] [place] [address] documented as of this encounter Procedures Procedure [...] QTC Calculation(Bazett) : 411 ms Calculated P [place] : 46 degrees Calculated R [place] : 14 degrees Calculated T [place] : 31 degrees NORMAL SINUS RHYTHM NORMAL ECG Confirmed by CRYSTAL MCKAY M.D. ([id number]) on 07/20/2024 10:23:07 PM NAME : MOJGAN PÉREZ PID : [id number] : 1955 Gender : Female Race : [...] by : , Procedure Note Radiology, Radiologist, MD - 07/20/2024 Ventricular Rate : 76 BPM Atrial Rate : 76 BPM P-R Interval : 166 ms QRS Duration : 78 ms Q-T Interval : 366 ms QTC Calculation(Bazett) : 411 ms Calculated P [place] : 46 degrees Calculated R [place] : 14 degrees Calculated T [place] : 31 degrees NORMAL SINUS RHYTHM NORMAL ECG Confirmed by CRYSTAL MCKAY M.D. ([id number]) on 07/20/2024 10:23:07 PM NAME : MOJGAN PÉREZ PID : [id number] : 1955 Gender : Female Race : [...] documented as of this encounter Care Teams Shellfish Dredge Operator Relationship Specialty Start Date End Date Vitaliy Thomson MD [address] [place] [address] PCP - ACO Reach 03/26/23 Vitaliy Thomson MD [address] [place] [address] PCP - General Family Medicine 05/19/23 04/17/25 Power Swain DO [address] [place] [address] PCP - General Family Medicine 04/18/25 04/24/25 Power Swain DO [address] [place] [address] PCP - General Family Medicine 04/25/25 Fabiola Palumbo NP [address] [place] [address] Nurse Practitioner Family Medicine 05/19/23 01/19/25 Letty Newsome NP [address] [place] [address] Nurse Practitioner Pulmonary Disease 05/19/23 04/17/25 Sima Paul, LES [address] [place] [address] Registered Nurse Family Medicine 08/24/23 documented as of this encounter
--- OUTSIDE RECORDS SUMMARY | 2025-07-19 17:41 | XMS_ITS | Clinical Summary ---
Author Organization [facility] Address [address] [place] [address] Phone Care Team Providers Care Indoor Landscaper/Gardener Name Role Phone Supa Lindquist MD PhD Unavailable [phone] Jessica Grove RN Unavailable Unavailable Lisette Perkins SUPERVISORY CBP OFFICER-MARGIN CLERK Unavailable [phone] Theresa Romano MD PhD Unavailable [phone] Negro Epps MD PhD Unavailable [phone] Power Swain DO Primary Care Provider [phone] Allergies Active Allergy Reactions Criticality Noted Date [...] (10 mEq) by mouth once daily. 05/18/20 23 Active metFORMIN (Glucophage) 500 mg tablet Take [...] PM EST): Referral from Dr. Marinelli at [facility]. MGUS since 2005 Followed at [facility] by Dr. Kumari, and then Dr. Cummings. [...] radiation field this may not be entirely treasury representative. 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 Cont monthly. Assessment & Plan (01/28/2024 12:26 PM EDT): Infection prophylaxis VZV: Acyclovir 400 mg PO BID PJP: Trimethoprim-sulfamethoxazole 800-160 mg PO 3x weekly Hypogammaglobulinemia IVIG given 09/22/23, 10/29/23 ([facility]) 12/08/23 and 01/12/24. Cont monthly. Assessment & Plan (01/14/2024 10:27 AM EDT): Infection prophylaxis VZV: Acyclovir 400 mg PO BID PJP: Trimethoprim-sulfamethoxazole 800-160 mg PO 3x weekly Hypogammaglobulinemia IVIG given 09/22/23, 10/29/23 ([facility]) and 12/08/23. Plan next today 01/12/24. Assessment & Plan (01/03/2024 11:33 AM EST): Infection prophylaxis VZV: Acyclovir 400 mg PO BID PJP: Trimethoprim-sulfamethoxazole 800-160 mg PO 3x weekly Hypogammaglobulinemia IVIG given 09/22/23, 10/29/23 ([facility]) and 12/08/23. Plan next dose 01/05/24. 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) (Located Within [facility]) 07/11/2019 Primary localized osteoarthrosis of ankle and [...] weekly Hypogammaglobulinemia IVIG given 09/22/23 and 10/29/23 ([facility]) Assessment & Plan (08/17/2023 7:42 AM EDT): [...] Encounters Date Type Department Care Team Description 06/22/2025 7:57 AM EDT Anesthesia Event [address] [phone] Justus Rodriguez MD Patterson, George W, CAA 06/22/2025 5:57 AM EDT - 06/22/2025 11:59 PM EDT Hospital Encounter [address] [address] Liver cell carcinoma Discharge Disposition: Home 06/22/2025 5:56 AM EDT Hospital Encounter [address] [address] Liver cell carcinoma Discharge Disposition: Home 06/22/2025 Travel 04/28/2025 Prep for Procedure [address] [address] Lázaro Nicholas, SUPERVISORY CBP OFFICER-MARGIN CLERK Liver cell carcinoma (Primary Dx) 04/28/2025 Orders Only [address] [phone] Lázaor Nicholas, SUPERVISORY CBP OFFICER-MARGIN CLERK 04/20/2025 Prep for Procedure [address] [address] Láazro Nicholas, SUPERVISORY CBP OFFICER-MARGIN CLERK Liver cell carcinoma (Primary Dx) 04/20/2025 Orders Only [address] [address] Lázaro Nichoals, SUPERVISORY CBP OFFICER-MARGIN CLERK from Last 3 Months Immunizations Immunization Administration [...] place to sleep or slept in a detention (including now)? No 11/19/2023 Comments Unknown Sex and Gender Information Value Date Recorded Sex Assigned at Not on file Legal Sex Female 4:17 PM EST Gender Identity Not on file Sexual Orientation Straight 06/22/2025 6: 11 AM EDT Last Filed Vital Signs Vital Sign Reading Time Taken Comments Blood Pressure 122/62 06/22/2025 12:41 PM EDT Pulse 78 06/22/2025 12:41 PM EDT Temperature 36.4 C (97.5 F) 06/22/2025 12:41 PM EDT Respiratory Rate 16 06/22/2025 12:41 PM EDT Oxygen Saturation 98% 06/22/2025 12:41 PM EDT Inhaled Oxygen Concentration - - Weight 87.5 kg (193 lb) 06/22/2025 6:39 AM EDT Height 157.5 cm (5' 2 ) 06/22/2025 6:39 AM EDT Body Mass Index 35.3 06/22/2025 6:39 AM EDT Plan of Treatment Health Maintenance Due Date Last Done Comments CT Colonography 1957 FIT-DNA (Cologuard) 1957 FIT 1957 Sigmoidoscopy 1955 MMR Vaccines (1 of 1 - Standard series) 1958 COVID-19 Vaccine (#1) 1962 Hepatitis C Screening [...] 12/02/2023 12/01/2022, 11/22/2021, 11/23/2020, Additional history exists Bone Density Scan 12/29/2024 12/29/2022, 12/29/2022 Influenza Vaccine (#1) 2025 , 09/12/2019, 09/12/2019, Additional history exists Diabetes: Urine Protein Screening 08/26/2025 08/26/2024, 11/30/2023 Lipid Panel 08/26/2025 08/26/2024 Colonoscopy 09/15/2028 09/15/2018, 05/01/2015 Colorectal Cancer Screening 09/15/2028 Welcome to Medicare Visit Discontinued 2022, 11/22/2021, 11/23/2020, Additional history exists RSV High Risk: (Elderly [...] on patient's age to complete this topic Goals Goal Patient Goal Type Associated Problems Recent Progress Patient-Stated? Author Autogenerat ed Goal Care Plan Autogenerated Problem No Mahamed Rebecca L Procedures Procedure Name Priority Date/Time Associated Diagnosis Comments POCT GLUCOSE Routine 06/22/2025 9:[address] GUIDED RF ABLATION LIVER Routine 06/22/2025 9:06 AM EDT Liver cell carcinoma US GUIDED RF ABLATION LIVER Routine 06/22/2025 8:53 AM EDT Liver cell carcinoma PULSE OXIMETRY, CONTINUOUS Routine 06/22/2025 8:47 AM EDT ME AN ELECTIVE ENDOTRACHEAL AIRWAY Routine 06/22/2025 8:05 AM EDT POCT GLUCOSE Routine 06/22/2025 6:46 AM EDT BASIC METABOLIC PANEL STAT 06/22/2025 6:33 AM EDT PROTIME-INR STAT 06/22/2025 6:33 AM EDT CBC STAT 06/22/2025 6:33 AM EDT HEMOGLOBIN A1C Routine 08/04/2023 2:49 AM EDT from Last 3 Months or Most Recently Relevant to Health Maintenance Results * POCT GLUCOSE (06/22/2025 9:58 AM EDT) POCT Glucose 93 74 - 99 mg/dL 06/22/2025 10:00 AM EDT [facility] Blood Capillary blood specimen / Unknown 06/22/2025 9:58 AM EDT 06/22/2025 10:00 AM EDT us Interface Unspecifiedprovider LAB POINT OF CARE TEST DOCKED DEVICE UNSOLICITED RESULTS Final Result Performing Organization Address City/State/[facility] Co de Phone Number [facility] [address] [place] [address] * CT guided RF ablation liver (06/22/2025 9:06 AM EDT) Anatomical Region Laterality Modality Body Angio, Body Computed Tomogr aphy 06/22/2025 3:58 PM EDT 06/22/2025 3:58 PM EDT Impressions 06/22/2025 3:[address] and ultrasound-guided microwave ablation of a segment 6 hepatocellular carcinoma as described above Signed by: Дмитрий Flores 06/22/2025 3:56 PM Dictation workstation: [id number] Narrative 06/22/2025 3:56 PM EDT Interpreted By: Дмитрий Flores, STUDY: CT GUIDED RF ABLATION LIVER; US GUIDED RF ABLATION LIVER; 06/22/2025 9:06 am; 06/22/2025 8:53 am INDICATION: Signs/Symptoms:HCC microwave ablation; Signs/Symptoms:microwave ablation for HCC. COMPARISON: MR abdomen 04/17/2025 ACCESSION NUMBER(S): [id number]; [id number] ORDERING CLINICIAN: LÁZARO NICHOLAS TECHNIQUE: ENDO TECH: Дмитрий Flores MD CONSENT: The patient was informed of the nature of the proposed procedure. The purposes, alternatives, risks, and benefits were explained and discussed. All questions were answered and consent was obtained. RADIATION EXPOSURE: Dose: Total exam DLP 305 mGy SEDATION: General anesthesia MEDICATION/CONTRAST: Ancef 2 g IV TIME OUT: A time out was performed immediately prior to the procedure start with interventional team, correctly identifying the patient using multiple identifiers and ensuring the appropriate procedure and anatomy (including laterality, if applicable) were identified. The procedure consent form and all relevant laboratory and imaging tests were reviewed. The need for antibiotic administration or patient or procedure specific safety precautions or equipment was reviewed. COMPLICATIONS: None immediate FINDINGS: General anesthesia was induced and the patient was then positioned supine oblique on the CT scan table. An initial film spooler CT was performed, demonstrating the 1.9 cm hypoattenuating lesion in segment 6 of the liver consistent with the known hepatocellular carcinoma. The skin was marked, prepped, and draped in a sterile fashion. Next, the liver was evaluated sonographically, demonstrating a 1.9 x 1.8 cm hypoechoic lesion in segment 6 corresponding to the film spooler CT scan and prior imaging. Under direct sonographic guidance, the skin and intervening tissues were anesthetized with lidocaine and bupivacaine. Then, under direct sonographic guidance, 16 gauge microwave ablation antenna was advanced through the hemisphere of the tumor and a proximally 1 cm beyond the posterior margin. Once adequately positioned, microwave ablation was performed at 60 weaver for 4 minutes. Real-time evaluation of the ultrasound demonstrates appropriate formation of a cavity as evidenced by gas. At completion of the ablation, the needle was withdrawn. Sterile dressing was applied. A final CT of the upper abdomen without contrast was obtained and showed no evidence of immediate complication. Residual gas coursing through the mid aspect of the known tumor consistent with a technically successful ablation. Procedure Note Дмитрий Flores MD - 06/22/2025 Interpreted By: Дмитрий Flores, STUDY: CT GUIDED RF ABLATION LIVER; US GUIDED RF ABLATION LIVER; 06/22/2025 9:06 am; 06/22/2025 8:53 am INDICATION: Signs/Symptoms:HCC microwave ablation; Signs/Symptoms:microwave ablation for HCC. COMPARISON: MR abdomen 04/17/2025 ACCESSION NUMBER(S): [id number]; [id number] ORDERING CLINICIAN: LÁZARO NICHOLAS TECHNIQUE: ENDO TECH: Дмитрий Flores MD CONSENT: The patient was informed of the nature of the proposed procedure. The purposes, alternatives, risks, and benefits were explained and discussed. All questions were answered and consent was obtained. RADIATION EXPOSURE: Dose: Total exam DLP 305 mGy SEDATION: General anesthesia MEDICATION/CONTRAST: Ancef 2 g IV TIME OUT: A time out was performed immediately prior to the procedure start with interventional team, correctly identifying the patient using multiple identifiers and ensuring the appropriate procedure and anatomy (including laterality, if applicable) were identified. The procedure consent form and all relevant laboratory and imaging tests were reviewed. The need for antibiotic administration or patient or procedure specific safety precautions or equipment was reviewed. COMPLICATIONS: None immediate FINDINGS: General anesthesia was induced and the patient was then positioned supine oblique on the CT scan table. An initial film spooler CT was performed, demonstrating the 1.9 cm hypoattenuating lesion in segment 6 of the liver consistent with the known hepatocellular carcinoma. The skin was marked, prepped, and draped in a sterile fashion. Next, the liver was evaluated sonographically, demonstrating a 1.9 x 1.8 cm hypoechoic lesion in segment 6 corresponding to the film spooler CT scan and prior imaging. Under direct sonographic guidance, the skin and intervening tissues were anesthetized with lidocaine and bupivacaine. Then, under direct sonographic guidance, 16 gauge microwave ablation antenna was advanced through the hemisphere of the tumor and a proximally 1 cm beyond the posterior margin. Once adequately positioned, microwave ablation was performed at 60 weaver for 4 minutes. Real-time evaluation of the ultrasound demonstrates appropriate formation of a cavity as evidenced by gas. At completion of the ablation, the needle was withdrawn. Sterile dressing was applied. A final CT of the upper abdomen without contrast was obtained and showed no evidence of immediate complication. Residual gas coursing through the mid aspect of the known tumor consistent with a technically successful ablation. IMPRESSION: CT and ultrasound-guided microwave ablation of a segment 6 hepatocellular carcinoma as described above Signed by: Дмитрий Flores 06/22/2025 3:56 PM Dictation workstation: [id number] us Lázaro Ching Nicholas SUPERVISORY CBP OFFICER-MARGIN CLERK IMG CT PROCEDURES Fin al Result * US guided RF ablation liver (06/22/2025 8:53 AM EDT) Anatomical Region Laterality Modality Body Angio, Liver Ultrasound 06/22/2025 3:58 PM EDT 06/22/2025 3:58 PM EDT Impressions 06/22/2025 3:[address] and ultrasound-guided microwave ablation of a segment 6 hepatocellular carcinoma as described above Signed by: Дмитрий Flores 06/22/2025 3:56 PM Dictation workstation: [id number] Narrative 06/22/2025 3:56 PM EDT Interpreted By: Дмитрий Flores, STUDY: CT GUIDED RF ABLATION LIVER; US GUIDED RF ABLATION LIVER; 06/22/2025 9:06 am; 06/22/2025 8:53 am INDICATION: Signs/Symptoms:HCC microwave ablation; Signs/Symptoms:microwave ablation for HCC. COMPARISON: MR abdomen 04/17/2025 ACCESSION NUMBER(S): [id number]; [id number] ORDERING CLINICIAN: LÁZARO NICHOLAS TECHNIQUE: ENDO TECH: Дмитрий Flores MD CONSENT: The patient was informed of the nature of the proposed procedure. The purposes, alternatives, risks, and benefits were explained and discussed. All questions were answered and consent was obtained. RADIATION EXPOSURE: Dose: Total exam DLP 305 mGy SEDATION: General anesthesia MEDICATION/CONTRAST: Ancef 2 g IV TIME OUT: A time out was performed immediately prior to the procedure start with interventional team, correctly identifying the patient using multiple identifiers and ensuring the appropriate procedure and anatomy (including laterality, if applicable) were identified. The procedure consent form and all relevant laboratory and imaging tests were reviewed. The need for antibiotic administration or patient or procedure specific safety precautions or equipment was reviewed. COMPLICATIONS: None immediate FINDINGS: General anesthesia was induced and the patient was then positioned supine oblique on the CT scan table. An initial film spooler CT was performed, demonstrating the 1.9 cm hypoattenuating lesion in segment 6 of the liver consistent with the known hepatocellular carcinoma. The skin was marked, prepped, and draped in a sterile fashion. Next, the liver was evaluated sonographically, demonstrating a 1.9 x 1.8 cm hypoechoic lesion in segment 6 corresponding to the film spooler CT scan and prior imaging. Under direct sonographic guidance, the skin and intervening tissues were anesthetized with lidocaine and bupivacaine. Then, under direct sonographic guidance, 16 gauge microwave ablation antenna was advanced through the hemisphere of the tumor and a proximally 1 cm beyond the posterior margin. Once adequately positioned, microwave ablation was performed at 60 weaver for 4 minutes. Real-time evaluation of the ultrasound demonstrates appropriate formation of a cavity as evidenced by gas. At completion of the ablation, the needle was withdrawn. Sterile dressing was applied. A final CT of the upper abdomen without contrast was obtained and showed no evidence of immediate complication. Residual gas coursing through the mid aspect of the known tumor consistent with a technically successful ablation. Procedure Note Дмитрий Flores MD - 06/22/2025 Interpreted By: Дмитрий Flores, STUDY: CT GUIDED RF ABLATION LIVER; US GUIDED RF ABLATION LIVER; 06/22/2025 9:06 am; 06/22/2025 8:53 am INDICATION: Signs/Symptoms:HCC microwave ablation; Signs/Symptoms:microwave ablation for HCC. COMPARISON: MR abdomen 04/17/2025 ACCESSION NUMBER(S): [id number]; [id number] ORDERING CLINICIAN: LÁZARO NICHOLAS TECHNIQUE: ENDO TECH: Дмитрий Flores MD CONSENT: The patient was informed of the nature of the proposed procedure. The purposes, alternatives, risks, and benefits were explained and discussed. All questions were answered and consent was obtained. RADIATION EXPOSURE: Dose: Total exam DLP 305 mGy SEDATION: General anesthesia MEDICATION/CONTRAST: Ancef 2 g IV TIME OUT: A time out was performed immediately prior to the procedure start with interventional team, correctly identifying the patient using multiple identifiers and ensuring the appropriate procedure and anatomy (including laterality, if applicable) were identified. The procedure consent form and all relevant laboratory and imaging tests were reviewed. The need for antibiotic administration or patient or procedure specific safety precautions or equipment was reviewed. COMPLICATIONS: None immediate FINDINGS: General anesthesia was induced and the patient was then positioned supine oblique on the CT scan table. An initial film spooler CT was performed, demonstrating the 1.9 cm hypoattenuating lesion in segment 6 of the liver consistent with the known hepatocellular carcinoma. The skin was marked, prepped, and draped in a sterile fashion. Next, the liver was evaluated sonographically, demonstrating a 1.9 x 1.8 cm hypoechoic lesion in segment 6 corresponding to the film spooler CT scan and prior imaging. Under direct sonographic guidance, the skin and intervening tissues were anesthetized with lidocaine and bupivacaine. Then, under direct sonographic guidance, 16 gauge microwave ablation antenna was advanced through the hemisphere of the tumor and a proximally 1 cm beyond the posterior margin. Once adequately positioned, microwave ablation was performed at 60 weaver for 4 minutes. Real-time evaluation of the ultrasound demonstrates appropriate formation of a cavity as evidenced by gas. At completion of the ablation, the needle was withdrawn. Sterile dressing was applied. A final CT of the upper abdomen without contrast was obtained and showed no evidence of immediate complication. Residual gas coursing through the mid aspect of the known tumor consistent with a technically successful ablation. IMPRESSION: CT and ultrasound-guided microwave ablation of a segment 6 hepatocellular carcinoma as described above Signed by: Дмитрий Flores 06/22/2025 3:56 PM Dictation workstation: [id number] us Lázaro Nicholas SUPERVISORY CBP OFFICER-MARGIN CLERK IMG US PROCEDURES Fin al Result * ME AN ELECTIVE ENDOTRACHEAL AIRWAY (06/22/2025 8:05 AM EDT) João Weber CAA - 06/22/2025 8:05 AM EDT JEAN-PAUL Berry 06/22/2025 8:07 AM Airway Date/Time: 06/22/2025 8:05 AM Reason: elective Airway not difficult Staffing Performed: CAA Authorized by: Justus Rodriguez MD Performed by: JEAN-PAUL Berry Patient location during procedure: OR Patient Condition Indications for airway management: anesthesia and airway protection Patient position: sniffing Planned trial extubation Sedation level: deep Final Airway Details Preoxygenated: yes Final airway type: endotracheal airway Successful airway: ETT Cuffed: yes Successful intubation technique: direct laryngoscopy Adjuncts used in placement: intubating stylet Endotracheal tube insertion site: oral Blade: [place] size: #3 ETT size (mm): 7.0 Cormack-Lehane Classification: grade I - full view of glottis Placement verified by: chest auscultation and capnometry Measured from: lips ETT to lips (cm): 22 Ventilation between attempts: none Number of attempts at approach: 1 Number of other approaches attempted: 0 us Justus Rodriguez MD ANESTHESIA ORDERABLES Final Result * POCT GLUCOSE (06/22/2025 6:46 AM EDT) [facility] POCT Glucose 85 74 - 99 mg/dL 06/22/2025 6:49 AM EDT [facility] Blood Capillary blood specimen / Unknown 06/22/2025 6:46 AM EDT 06/22/2025 6:49 AM EDT us Interface Unspecifiedprovider LAB POINT OF CARE TEST DOCKED DEVICE UNSOLICITED RESULTS Final Result Performing Organization Address [facility]/ZIP Co de Phone Number [facility] [id number] [place] [address] * (ABNORMAL) Protime-INR (06/22/2025 6:33 AM EDT) [facility] Protime 14.3(H) 9.8 - 12.4 seconds LAB COAGULATION METHOD 06/22/2025 7:10 AM EDT [facility] INR 1.3(H) 0.9 - 1.1 LAB COAGULATION METHOD 06/22/2025 7:10 AM EDT [facility] Blood Venous blood specimen / Unknown Venipuncture / Unknown 06/22/2025 6:33 AM EDT 06/22/2025 6:43 AM EDT us Дмитрий Flores MD LAB BLOOD ORDERABLES Final Result Performing Organization Address City/[facility]/ZIP Co de Phone Number [facility] [id number] [place] [address] * (ABNORMAL) CBC (06/22/2025 6:33 AM EDT) WBC 1.6(L) 4.4 - 11.3 x10*3/uL LAB HEMATOLOGY METHOD 06/22/2025 7:37 AM EDT [facility] nRBC 0.0 0.0 - 0.0 /100 WBCs LAB HEMATOLOGY METHOD 06/22/2025 7:37 AM EDT [facility] RBC 3.21(L) 4.00 - 5.20 x10*6/uL LAB HEMATOLOGY METHOD 06/22/2025 7:37 AM EDT [facility] Hemoglobin 10.5(L) 12.0 - 16.0 g/dL LAB HEMATOLOGY METHOD 06/22/2025 7:37 AM EDT [facility] Hematocrit 32.2(L) 36.0 - 46.0 % LAB HEMATOLOGY METHOD 06/22/2025 7:37 AM EDT [facility] MCV 100 80 - 100 fL LAB HEMATOLOGY METHOD 06/22/2025 7:37 AM EDT [facility] MCH 32.7 26.0 - 34.0 pg LAB HEMATOLOGY METHOD 06/22/2025 7:37 AM EDT [facility] MCHC 32.6 32.0 - 36.0 g/dL LAB HEMATOLOGY METHOD 06/22/2025 7:37 AM EDT [facility] RDW 13.9 11.5 - 14.5 % LAB HEMATOLOGY METHOD 06/22/2025 7:37 AM EDT [facility] Platelets 48(L) 150 - 450 x10*3/uL LAB HEMATOLOGY METHOD 06/22/2025 7:37 AM EDT [facility] Comment:Platelet count verif ied by smear review Blood Venous blood specimen / Unknown Venipuncture / Unknown 06/22/2025 6:33 AM EDT 06/22/2025 6:43 AM EDT us Дмитрий Flores MD LAB BLOOD ORDERABLES Final Result [facility] [address] [place] [address] * (ABNORMAL) Basic Metabolic Panel (06/22/2025 6:33 AM EDT) Glucose 90 74 - 99 mg/dL LAB CHEMISTRY METHOD 06/22/2025 7:03 AM EDT [facility] Sodium 137 136 - 145 mmol/L LAB CHEMISTRY METHOD 06/22/2025 7:03 AM EDT [facility] Potassium 4.0 3.5 - 5.3 mmol/L LAB CHEMISTRY METHOD 06/22/2025 7:03 AM EDT [facility] Chloride 104 98 - 107 mmol/L LAB CHEMISTRY METHOD 06/22/2025 7:03 AM EDT [facility] Bicarbonate 26 21 - 32 mmol/L LAB CHEMISTRY METHOD 06/22/2025 7:03 AM EDT [facility] Anion Gap 11 10 - 20 mmol/L LAB CHEMISTRY METHOD 06/22/2025 7:03 AM EDT [facility] Urea Nitrogen 17 6 - 23 mg/dL LAB CHEMISTRY METHOD 06/22/2025 7:03 AM EDT [facility] Creatinine 0.93 0.50 - 1.05 mg/dL LAB CHEMISTRY METHOD 06/22/2025 7:03 AM EDT [facility] eGFR 68 >60 mL/min/1. 73m*2 LAB CHEMISTRY METHOD 06/22/2025 7:03 AM EDT [facility] Comment: Calculations of estimated GFR are performed using the 2020 CKD-EPI Study Refit equation without the race variable for the IDMS-Traceable creatinine methods. https://jasn.asnjournals.org/content///ASN.6330198750 Calcium 8.2(L) 8.6 - 10.3 mg/dL LAB CHEMISTRY METHOD 06/22/2025 7:03 AM EDT [facility] Blood Venous blood specimen / Unknown Venipuncture / Unknown 06/22/2025 6:33 AM EDT 06/22/2025 6:43 AM EDT Дмитрий Flores MD LAB BLOOD ORDERABLES Final Result [facility] [address] [place] [address] * Hemoglobin A1C (08/04/2023 2:49 AM EDT) Hemoglobin A1C 4.9 see below % 4:08 AM EDT [facility] Estimated Average Glucose 94 Not Established mg/dL 08/04/2023 4:08 AM EDT [facility] Blood Venous blood specimen / Unknown 08/04/2023 2:49 AM EDT 08/04/2023 3:18 AM EDT Kevin Machado PA-C LAB BLOOD ORDERABLES Final R esult [facility] [address] [address] [place] [address] from Last 3 Months or Most Recently Relevant to Health Maintenance Additional Health Concerns Active Problems Noted Date Diagnosed Date Autogenerated Problem 05/01/2025 Insurance MEDICAID MEDICARE PART A AND B MEDICAID MEDICARE PART A AND B Advance Directives For more information, please contact: [phone] (Available ) * Full Code (Latest Code [...] Discussion Completed Decision Maker: Patient Care Teams Indoor Landscaper/Gardener Relationship Specialty Start Date End Date Power Swain DO [address] [place] [address] PCP - General Family Medicine 05/09/25 Supa Lindquist [place] PhD [address] [place] [address] Consulting Physician Hematology and Oncology 08/03/23 Jessica Grove, gunnery/ordnance officer Coordinator Case Management 08/04/23 Lisette Perkins, SUPERVISORY CBP OFFICER-MARGIN CLERK Nurse Practitioner Hematology and Oncology 09/14/23 Theresa Romano MD PhD [address] [place], [place] [id number] Consulting Physician Hematology and Oncology 11/18/23 Negro Epps [place] PhD [address] [place], [place] [address] Consulting Physician Hematology and Oncology 01/19/24
--- OUTSIDE RECORDS SUMMARY | 2025-07-19 17:41 | XMS_ITS | Encounter Summary ---
Author Organization [facility] Address [address] [place] [address] Care Team Providers Care Open Claims Representative Name Role Phone Vitaliy Thomson MD Unavailable [phone] Vitaliy Thomson MD Primary Care Provider [phone] Fabiola Palumbo NP Unavailable Letty Newsome FRENCH BINDER Unavailable [phone] Sima Paul RN Unavailable [phone] Power Swain DO Primary Care Provider [phone] Power Swain DO Primary Care Provider [phone] Encounter Details Date Type Department Care Team (Late st Contact Info) Description 07/01/2024 Abstract [facility] [address] [place] [address] Vitaliy Thomson MD [address] [place] [address] Social History Tobacco Use Types Packs/Day Years [...] [address] [place] [address] Power Swain DO [address] [place] [address] documented as of this encounter Visit Diagnoses Not on filedocumented in this encounter Additional Health Concerns Assessment Noted Time PHQ-9 Depression Total Score: 0 11/30/19 24 9:00 AM EST documented as of this encounter Care Teams Open Claims Representative Relationship Specialty Start Date End Date Vitaliy Thomson MD [address] [place] [address] PCP - ACO Reach 03/26/23 Vitaliy Thomson MD [address] [place] [address] PCP - General Family Medicine 05/19/23 04/17/[address] [place] [address] PCP - General Family Medicine 04/18/25 04/24/25 Power Swain DO [address] [facility] [place] [address] [place] [address] PCP - General Family Medicine 04/25/25 Fabiola Palumbo NP [address] [place] [address] Nurse Practitioner Family Medicine 05/19/23 01/19/25 Letty Newsome NP [address] [place] [address] Nurse Practitioner Pulmonary Disease 05/19/23 04/17/25 Sima Paul, LES [address] [place] [address] Registered Nurse Family Medicine 08/24/23 documented as of this encounter
--- OUTSIDE RECORDS SUMMARY | 2025-07-19 17:41 | XMS_ITS | Encounter Summary ---
Author Organization [facility] Address [address] [place] [address] Care Team Providers Care Sports Editor Name Role Phone Vitaliy Thomson MD Unavailable [phone] Sima Paul RN Unavailable [phone] Power Swain DO Primary Care Provider [phone] Reason for Visit * Reason Onset Date Comments Med Refill 07/07/2025 Encounter Details Date Type Department Care Team (Late st Contact Info) Description 07/07/2025 Telephone [facility] [address] [place], [facility] [address] [place] [address] Polina Ferrari MA Med Refill Social History Tobacco Use Types Packs/Day Years [...] on file documented as of this encounter Miscellaneous Notes * Telephone Encounter - Polina Ferrari MA - 07/07/2025 10:17 AM EDT Order placed and faxed to [phone] * Telephone Encounter - Power Swain DO - 07/07/2025 9:57 AM EDT Yes can you please order that for 5 years for me, dx code: copd * Telephone Encounter - Polina Ferrari MA - 07/07/2025 9:38 AM EDT Patient is requesting order for Handicap Placard be faxed to [facility] AT [phone]. Would like it for5 years if possible. documented in this encounter Plan of Treatment Upcoming Encounters Date Type Department Care Team (Late st Contact Info) Description 2025 10:00 AM EST Office Visit [facility] [address] [place], [facility] [address] [place] [address] Power Swain DO [address] [place] [address] documented as of this encounter Visit Diagnoses Diagnosis Chronic obstructive pulmonary disease, unspecified COPD type (HCC) documented in this encounter Additional Health Concerns Assessment Noted Time PHQ-9 Depression Total Score: 0 11/30/19 24 9:00 AM EST documented as of this encounter Care Teams Sports Editor Relationship Specialty Start Date End Date Vitaliy Thomson MD [address] [place] [address] PCP - ACO Reach 03/26/23 Power Swain DO [address] [place] [address] PCP - General Family Medicine 04/25/25 Sima Paul, LES [address] [place] [address] Registered Nurse Family Medicine 08/24/23 documented as of this encounter
--- OUTSIDE RECORDS SUMMARY | 2025-07-19 17:41 | XMS_ITS | Encounter Summary ---
Author Organization [facility] Address [address] [place] [address] Care Team Providers Care Elementary Instructional Coach Name Role Phone Vitaliy Thomson MD Unavailable [phone] Vitaliy Thomson MD Primary Care Provider [phone] Letty Newsome PANTOGRAPH II ENGRAVER Unavailable [phone] Sima Paul RN Unavailable [phone] Power Swain DO Primary Care Provider [phone] Power Swain DO Primary Care Provider [phone] Encounter Details Date Type Department Care Team (Late st Contact Info) Description 04/17/2025 External Result Encounter [facility] External Department Unsolicited Fabiola Marinelli MD [address] [place] [address] Social History Tobacco Use Types [...] [address], [address] [place] [address] Power Swain DO [address] [address] [place] [address] documented as of this encounter Procedures Procedure Name Priority Date/Time Associated Diagnosis Comments MR ABDOMEN W AND WO CONTRAST 04/17/2025 11:39 AM EDT documented in this encounter Results * MR abdomen w and wo contrast (04/17/2025 11:39 AM EDT) Anatomical Region Laterality Modality Abdomen Magnetic Resonan ce 04/17/2025 11:3 9 AM EDT Impressions 04/17/2025 11:58 AM EDT POSTABLATION CHANGES ARE SEEN INVOLVING SEGMENT 7 OF THE LIVER IN THE AREA OF PRIOR HEPATOCELLULAR CARCINOMA. AN AREA OF ARTERIAL ENHANCEMENT WASHOUT IS SEEN WITHIN SEGMENT 6 MEASURING 1 CM IN GREATEST SAGITTAL DIMENSION NEW SINCE THE PRIOR MRI STUDY. AN ADDITIONAL FOCUS OF HEPATOCELLULAR CARCINOMA IS SUSPECTED. CIRRHOTIC LIVER WITH SPLENOMEGALY.. Impression dictated by: Carroll Sparrow Jr., D.O. 04/17/2025 11:55 AM Dictation Location: [place] [address] Transcribed By: PWS 04/17/25 1155 Dictated By: Carroll Sparrow Jr, DO 04/17/25 1139 Signed By: <Electronically signed by Carroll Sparrow Jr, DO in OV> 04/17/25 1155 Narrative 04/17/2025 11:58 AM EDT [facility] Main [address] [address] MRI Report Signed Patient: Mojgan Snider MR#: [id number] : 1955 Acct:[id number] Age/Sex: 69 / F ADM Date: 04/20/25 Loc: XT Room: Type: REG RCR Attending Dr: Fabiola Marinelli MD Copies to: Fabiola Marinelli MD Ordering Provider: Fabiola Marinelli MD Date of Service: 04/17/25 MR/MR abdomen wo/w con: follow up post microwave ablation MRI OF THE ABDOMEN WITH AND WITHOUT CONTRAST: CLINICAL HISTORY: History of liver ablation. Follow-up. COMPARISON: Prior MRI abdomen 10/24/2024 TECHNIQUE: Multisequence, multiplanar imaging of the abdomen was obtained before and after the use of IV contrast. FINDINGS: Liver appears cirrhotic in morphology without evidence of intrahepatic biliary ductal dilatation. A 1 cm arterial enhancing lesion is seen involving segment 6 of the liver with washout and capsule suspicious for hepatocellular carcinoma. Postablation changes are seen involving segment 7 of the liver. Hepatic and portal veins appear patent. Gallbladder has been removed. No CBD dilatation. Splenomegaly measuring 13.7 cm. Pancreas appears unremarkable. Adrenal glands appear unremarkable. No enhancing renal mass or hydronephrosis. Abdominal aorta appears normal in caliber. No bulky lymphadenopathy or ascites. Duodenal diverticulum. No pleural effusion. MR/MR abdomen wo/w con Procedure Note Carroll Sparrow Jr., DO - 05/11/2025 [facility] Main [place] [address] [place] [address] MRI Report Signed Patient: Mojgan Snider SMR#: [id number] : 1955cct:[id number] Age/Sex: 69 / FADM Date: 04/20/25 Loc: XT Room:Type: REG RCR Attending Dr: Fabiola Marinelli MD Copies to: Fabiola Marinelli MD Ordering Provider: Fabiola Marinelli MD Date of Service: 04/17/25 MR/MR abdomen wo/w con: follow up postmicrowave ablation MRI OF THE ABDOMEN WITH AND WITHOUT CONTRAST: CLINICAL HISTORY: History of liver ablation. Follow-up. COMPARISON: Prior MRI abdomen 10/24/2024 TECHNIQUE: Multisequence, multiplanar imaging of the abdomen was obtainedbefore and after the use of IV contrast. FINDINGS: Liver appears cirrhotic in morphology without evidence of intrahepaticbiliary ductal dilatation. A 1 cm arterial enhancing lesion is seen involving segment 6 of the liverwith washout and capsule suspicious for hepatocellular carcinoma. Postablation changes are seeninvolving segment 7 of the liver. Hepatic and portal veins appear patent. Gallbladder has been removed. No CBD dilatation. Splenomegaly asimlhsom85.7 cm. Pancreas appears unremarkable. Adrenal glands appear unremarkable. No enhancing renalmass or hydronephrosis. Abdominal aorta appears normal in caliber. No bulky lymphadenopathy orascites. Duodenal diverticulum. No pleural effusion. MR/MR abdomen wo/w con IMPRESSION: POSTABLATION CHANGES ARE SEEN INVOLVING SEGMENT 7 OF THE LIVER IN THE AREAOF PRIOR HEPATOCELLULAR CARCINOMA. AN AREA OF ARTERIAL ENHANCEMENT WASHOUT IS SEEN WITHIN SEGMENT 6 MEASURING1 CM IN GREATEST SAGITTAL DIMENSION NEW SINCE THE PRIOR MRI STUDY. AN ADDITIONAL FOCUS OFHEPATOCELLULAR CARCINOMA IS SUSPECTED. CIRRHOTIC LIVER WITH SPLENOMEGALY.. Impression dictated by: Carroll Sparrow Jr., DErnaOErna 04/17/2025 11:55 AM Dictation Location: [place] [address] Transcribed By: [facility] 04/17/25 1155 Dictated By: Carroll Sparrow Jr, DO 04/17/25 1139 Signed By: <Electronically signed by Carroll Sparrow Jr DO inO> 04/17/25 1155 Fabiola Marinelli MD IM MRI PROCEDURES Edited Result - Final documented in this encounter Visit Diagnoses Not on filedocumented in this encounter Additional Health Concerns Assessment Noted Time PHQ-9 Depression Total Score: 0 11/30/19 24 9:00 AM EST documented as of this encounter Care Teams Elementary Instructional Coach Relationship Specialty Start Date End Date Vitaliy Thomson MD [address] [place] [address] PCP - ACO Reach 03/26/23 Vitaliy Thomson MD [address] [place] [address] PCP - General Family Medicine 05/19/23 04/17/25 Power Swain DO [address] [place] [address] PCP - General Family Medicine 04/18/25 04/24/25 Power Swain DO [address] [place] [address] PCP - General Family Medicine 04/25/25 Letty Newsome NP [address] [place] [address] Nurse Practitioner Pulmonary Disease 05/19/23 04/17/25 Sima Paul, [place]ES [address] [place] [address] Registered Nurse Family Medicine 08/24/23 documented as of this encounter
--- OUTSIDE RECORDS SUMMARY | 2025-07-19 17:41 | XMS_ITS | Encounter Summary ---
Author Organization [facility] Address [address] [facility] [place] [address] Care Team Providers Care Stock Pitcher Name Role Phone Vitaliy Thomson MD Unavailable Vitaliy Thomson MD Primary Care Provider [phone] Fabiola Palumbo NP Unavailable Letty Newsome NP Unavailable [phone] Sima Paul RN Unavailable [phone] Power Swain DO Primary Care Provider [phone] Power Swain DO Primary Care Provider [phone] Encounter Details Date Type Department Care Team (Late st Contact Info) Description 09/12/2024 [facility] [address] [place] [address] Fabiola Palumbo NP [address] [facility] [address] [place] [address] Social History Tobacco Use Types Packs/Day Years [...] [address], [address] [place] [address] Power Swain DO [address] [place] [address] documented as of this encounter Visit Diagnoses Not on filedocumented in this encounter Additional Health Concerns Assessment Noted Time PHQ-9 Depression Total Score: 0 11/30/19 24 9:00 AM EST documented as of this encounter Care Teams Stock Pitcher Relationship Specialty Start Date End Date Vitaliy Thomson MD [address] [place] [address] PCP - ACO Reach 03/26/23 Vitaliy Thomson MD [address] [place] [address] PCP - General Family Medicine 05/19/23 04/17/[address] [place] [address] PCP - General Family Medicine 04/18/25 04/24/25 Power Swain DO [address] [facility] [address] [place] [address] PCP - General Family Medicine 04/25/25 Fabiola Palumbo NP [address] [place] [address] Nurse Practitioner Family Medicine 05/19/23 01/19/25 Letty Newsome NP [address] [place] [address] Nurse Practitioner Pulmonary Disease 05/19/23 04/17/25 Sima Paul, LES [address] [place] [address] Registered Nurse Family Medicine 08/24/23 documented as of this encounter
--- OUTSIDE RECORDS SUMMARY | 2025-07-19 17:41 | XMS_ITS | Encounter Summary ---
Author Organization [facility] Address [address] [facility] [place] [address] Care Team Providers Care Client Sales And Service Officer Name Role Phone Vitaliy Thomson MD Unavailable [phone] Vitaliy Thomson MD Primary Care Provider [phone] Fabiola Palumbo NP Unavailable Letty Newsome DIET TECH Unavailable [phone] Sima Paul RN Unavailable [phone] Power Swain DO Primary Care Provider [phone] Power Swain DO Primary Care Provider [phone] Encounter Details Date Type Department Care Team (Late st Contact Info) Description 07/01/2024 Abstract [facility] [address] [place] [address] Vitaliy Thomson MD [address] [place] [address] Social History Tobacco Use Types Packs/Day Years [...] [address] [place] [address] Power Swain DO [address] [place] [address] documented as of this encounter Visit Diagnoses Not on filedocumented in this encounter Additional Health Concerns Assessment Noted Time PHQ-9 Depression Total Score: 0 11/30/19 24 9:00 AM EST documented as of this encounter Care Teams Client Sales And Service Officer Relationship Specialty Start Date End Date Vitaliy Thomson MD [address] [place] [address] PCP - ACO Reach 03/26/23 Vitaliy Thomson MD [address] [place] [address] PCP - General Family Medicine 05/19/23 04/17/[address] [place] [address] PCP - General Family Medicine 04/18/25 04/24/25 Power Swain DO [address] [facility] [address] [place] [address] PCP - General Family Medicine 04/25/25 Fabiola Palumbo NP [address] [place] [address] Nurse Practitioner Family Medicine 05/19/23 01/19/25 Letty Newsome NP [address] [place] [address] Nurse Practitioner Pulmonary Disease 05/19/23 04/17/25 Sima Paul, LES [address] [place] [address] Registered Nurse Family Medicine 08/24/23 documented as of this encounter
--- OUTSIDE RECORDS SUMMARY | 2025-07-19 17:41 | XMS_ITS | Encounter Summary ---
Author Organization [facility] Address [address] [place] [address] Care Team Providers Care Mold Mechanic Name Role Phone Vitaliy Thomson MD Unavailable [phone] Vitaliy Thomson MD Primary Care Provider [phone] Letty Newsome CITY CONSTABLE Unavailable [phone] Sima Paul RN Unavailable [phone] Power Swain DO Primary Care Provider [phone] Power Swain DO Primary Care Provider [phone] Encounter Details Date Type Department Care Team (Late st Contact Info) Description 04/02/2025 Orders Only [facility] [place] [facility] [address] [place] [address] Power Swain DO [address] [facility] [place] [address] Social History Tobacco Use Types Packs/Day Years [...] you are drinking? Patient does not drink 04/30/202 5 Q3: How often do you have si [...] [address] [place] [address] Power Swain DO [address] [place] [address] documented as of this encounter Procedures Procedure Name Priority Date/Time Associated Diagnosis Comments XR RIBS 3 VIEWS BILATERAL WITH CHEST POSTEROANTERIOR Routine 04/02/2025 6:32 PM EDT documented in this encounter Results * XR ribs 3 views bilateral w chest posteroanterior (04/02/2025 6:32 PM EDT) Anatomical Region Laterality Modality Rib, Abdomen Bilateral Radiographic Shirley ging Power Swain DO IMG XR PROCEDURES Final Result documented in this encounter Visit Diagnoses Not on filedocumented in this encounter Additional Health Concerns Assessment Noted Time PHQ-9 Depression Total Score: 0 11/30/19 24 9:00 AM EST documented as of this encounter Care Teams Mold Mechanic Relationship Specialty Start Date End Date Vitaliy Thomson MD [address] [place] [address] PCP - ACO Reach 03/26/23 Vitaliy Thomson MD [address] [place] [address] PCP - General Family Medicine 05/19/23 04/17/25 Power Swain DO [address] [place] [address] PCP - General Family Medicine 04/18/25 04/24/25 Power Swain DO [address] [place] [address] PCP - General Family Medicine 04/25/25 Letty Newsome NP [address] [place] [address] Nurse Practitioner Pulmonary Disease 05/19/23 04/17/25 Sima Paul, [place] [address] [place] [address] Registered Nurse Family Medicine 08/24/23 documented as of this encounter
--- OUTSIDE RECORDS SUMMARY | 2025-07-19 17:41 | XMS_ITS | Encounter Summary ---
Author Organization [facility] Address [address] [facility] [address] [place] [address] Care Team Providers Care Casino Floor Walker Name Role Phone Vitaliy Thomson MD Unavailable [phone] Vitaliy Thomson MD Primary Care Provider [phone] Fabiola Palumbo NP Unavailable Letty Newsome DIESEL TECHNICIAN MECHANIC Unavailable [phone] Sima Paul RN Unavailable [phone] Power Swain DO Primary Care Provider [phone] Power Swain DO Primary Care Provider [phone] Encounter Details Date Type Department Care Team (Late st Contact Info) Description 09/14/2024 Abstract [facility] [address] [place] [address] Letty Newsome DIESEL TECHNICIAN MECHANIC [address] [place] [place] [address] Social History Tobacco Use Types Packs/Day Years [...] [address] [place] [address] [place] [address] Power Swain DO [address] [place] [address] [place] [address] documented as of this encounter Visit Diagnoses Not on filedocumented in this encounter Additional Health Concerns Assessment Noted Time PHQ-9 Depression Total Score: 0 11/30/19 24 9:00 AM EST documented as of this encounter Care Teams Casino Floor Walker Relationship Specialty Start Date End Date Vitaliy Thomson MD [address] [place] [address] PCP - ACO Reach 03/26/23 Vitaliy Thomson MD [address] [place] [address] PCP - General Family Medicine 05/19/23 04/17/[address] [place] [address] PCP - General Family Medicine 04/18/25 04/24/25 Power Swain DO [address] [place] [address] [place] [address] PCP - General Family Medicine 04/25/25 Fabiola Palumbo NP [address] [place] [address] Nurse Practitioner Family Medicine 05/19/23 01/19/25 Letty Newsome NP [address] [place] [address] Nurse Practitioner Pulmonary Disease 05/19/23 04/17/25 Sima Paul, LES [address] [place] [address] Registered Nurse Family Medicine 08/24/23 documented as of this encounter
--- OUTSIDE RECORDS SUMMARY | 2025-07-19 17:41 | XMS_ITS | Encounter Summary ---
Author Organization [facility] Address [address] [place] [address] Care Team Providers Care District Operations Manager Name Role Phone Vitaliy Thomson MD Unavailable [phone] Sima Paul RN Unavailable [phone] Power Swain DO Primary Care Provider [phone] Encounter Details Date Type Department Care Team (Late st Contact Info) Description 07/19/2025 External Result Encounter [facility] External Department Unsolicited Fabiola Marinelli MD [address] [place] [address] Social History Tobacco Use Types [...] [address], [address] [address] [place] [address] Power Swain, DO [address] [place] [address] Pending Results Name Type Priority Associated Diagnoses Date /Time CBC auto differential Lab STAT 9:45 AM EDT documented as of this encounter Procedures Procedure Name Priority Date/Time Associated Diagnosis Comments SCAN AND CBC STAT 07/19/2025 9:45 AM EDT documented in this encounter Results * (ABNORMAL) SCAN AND CBC (07/19/2025 9:45 AM EDT) WBC 1.7(L) 3.8 - 11.6 [CFU]/mL 07/19/2025 10:34 AM EDT [facility] UNCORRECTED WHITE BLOOD COUNT 1.7(L) 3.8 - 11.6 10*3/uL 07/19/2025 10:34 AM EDT [facility] RBC 3.33(L) 3.60 - 5.00 10*6/uL 07/19/2025 10:34 AM EDT [facility] HEMOGLOBIN 10.9(L) 11.8 - 15.4 g/dL 07/19/2025 10:34 AM EDT [facility] HEMATOCRIT 32.4(L) 34.0 - 46.4 % 07/19/2025 10:34 AM EDT [facility] MCV 97.4 80 - 100 fL 07/19/2025 10:34 AM EDT [facility] MCH 32.7 24.7 - 34.3 pg 07/19/2025 10:34 AM EDT [facility] MCHC 33.6 32.0 - 35.0 g/dL 07/19/2025 10:34 AM EDT [facility] RED CELL DISTRIBUTION WIDTH, RDW 14.8 11.9 - 15.3 % 07/19/2025 10:34 AM EDT [facility] PLATELET COUNT 46(L) 150 - 450 10*3/uL 07/19/2025 10:34 AM EDT [facility] MEAN PLATELET VOLUME, MPV 9.0 6.3 - 10.7 fL 07/19/2025 10:34 AM EDT [facility] NEUTROPHILS, % 29.7 . % 07/19/2025 11:29 AM EDT [facility] LYMPHOCYTES, % 20.0 . % 07/19/2025 11:29 AM EDT [facility] MONOCYTE/MACROPHAG E, % 21.6 . % 07/19/2025 11:29 AM EDT [facility] EOSINOPHILS, % 28.2 . % 07/19/2025 11:29 AM EDT [facility] BASOPHILS, % 0.5 . % 07/19/2025 11:29 AM EDT [facility] NRBC 0.2 0 - 0.5 /100{WBC} 07/19/2025 11:29 AM EDT [facility] NEUTROPHILS 0.5(L) 1.8 - 7.7 10*3/uL 07/19/2025 11:29 AM EDT [facility] LYMPHOCYTES 0.3(L) 1.00 - 4.8 10*3/uL 07/19/2025 11:29 AM EDT [facility] MONOCYTES 0.4 0.0 - 0.8 10*3/uL 07/19/2025 11:29 AM EDT [facility] EOSINOPHILS 0.5(H) 0.0 - 0.45 10*3/uL 07/19/2025 11:29 AM EDT [facility] BASOPHILS 0.0 0.0 - 0.2 10*3/uL 07/19/2025 11:29 AM EDT [facility] POLYCHROMASIA Slight 07/19/2025 11:29 AM EDT [facility] POIKILOCYTOSIS Slight 07/19/2025 11:29 AM EDT [facility] OVALOCYTES Slight 07/19/2025 11:29 AM EDT [facility] PLATELET ESTIMATE Decreased Normal 025 11:29 AM EDT [facility] LARGE PLATELETS Slight 5 11:29 AM EDT [facility] Blood (Blood) 07/19/2025 9:4 5 AM EDT 07/19/2025 9:55 AM EDT us Fabiola Marinelli MD LAB BLOOD ORDERABLES Final Resul t [facility] [address] [facility] [place] [address], [facility] [address] [place] [address] documented in this encounter Visit Diagnoses Not on filedocumented in this encounter Additional Health Concerns Assessment Noted Time PHQ-9 Depression Total Score: 0 11/30/19 24 9:00 AM EST documented as of this encounter Care Teams District Operations Manager Relationship Specialty Start Date End Date Vitaliy Thomson MD [address] [place] [address] PCP - ACO Reach 03/26/23 Power Swain DO [address] [address] PCP - General Family Medicine 04/25/25 Sima Paul, LES [address] [place] [address] Registered Nurse Family Medicine 08/24/23 documented as of this encounter
--- OUTSIDE RECORDS SUMMARY | 2025-07-19 17:41 | XMS_ITS ---
Author Organization [facility] Address [address] [place] [address] Phone Care Team Providers Care Knitting Machine Operator Name Role Phone Supa Lindquist MD PhD Unavailable [phone] Jessica Grove RN Unavailable Unavailable Lisette Perkins CUT OUT OPERATOR-MAC OPERATOR Unavailable [phone] Theresa Romano MD PhD Unavailable [phone] Negro Epps MD PhD Unavailable [phone] Power Swain DO Primary Care Provider [phone] Active Problems Problem Noted Date Diagnosed Date [...] PM EST): Referral from Dr. Marinelli at [facility]. [facility] since 2006 Followed at [facility] by Dr. Kumari, and then Dr. [...] radiation field this may not be entirely outbound telemarketing representative. 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 Cont monthly. Assessment & Plan (01/28/2024 12:26 PM EDT): Infection prophylaxis VZV: Acyclovir 400 mg PO BID PJP: Trimethoprim-sulfamethoxazole 800-160 mg PO 3x weekly Hypogammaglobulinemia IVIG given 09/22/23, 10/29/23 ([facility]) 12/08/23 and 01/12/24. Cont monthly. Assessment & Plan (01/14/2024 10:27 AM EDT): Infection prophylaxis VZV: Acyclovir 400 mg PO BID PJP: Trimethoprim-sulfamethoxazole 800-160 mg PO 3x weekly Hypogammaglobulinemia IVIG given 09/22/23, 10/29/23 ([facility]) and 12/08/23. Plan next today 01/12/24. Assessment & Plan (01/03/2024 11:33 AM EST): Infection prophylaxis VZV: Acyclovir 400 mg PO BID PJP: Trimethoprim-sulfamethoxazole 800-160 mg PO 3x weekly Hypogammaglobulinemia IVIG given 09/22/23, 10/29/23 ([facility]) and 12/08/23. Plan next dose 01/05/24. Assessment & Plan (11/28/2023 4:08 PM EST): Infection prophylaxis VZV: Acyclovir 400 mg PO BID PJP: Trimethoprim-sulfamethoxazole 800-160 mg PO 3x weekly Hypogammaglobulinemia IVIG given 09/22/23 and 10/29/23 ([facility]) Plan next dose 12/08/23 Liver cirrhosis secondary [...] 03/15/2024 teclistamab-cq yv (Tecvayli) Stable Disease Supa Linqduist MD PhD 4 of 13 cycles started [...] weekly Hypogammaglobulinemia IVIG given 09/22/23 and 10/29/23 ([facility]) Assessment & Plan (08/17/2023 7:42 AM EDT): [...]
--- OUTSIDE RECORDS SUMMARY | 2025-07-19 17:42 | XMS_ITS | Encounter Summary ---
Author Organization [facility] Address [address] [place] [address] Care Team Providers Care Mill Worker Name Role Phone Vitaliy Thomson MD Unavailable [phone] Vitaliy Thomson MD Primary Care Provider [phone] Fabiola Palumbo NP Unavailable Letty Newsome JEWISH THOUGHT PROFESSOR Unavailable [phone] Sima Paul RN Unavailable [phone] Power Swain DO Primary Care Provider [phone] Power Swain DO Primary Care Provider [phone] Encounter Details Date Type Department Care Team (Late st Contact Info) Description 01/25/2024 External Result Encounter [facility] External Department Unsolicited Fabiola Marinelli MD [address] [place] [address] Social History Tobacco Use Types [...] [address] [place] [address] Power Swain DO [address] [place] [address] documented as of this encounter Procedures Procedure [...] Sparrow Jr., D.O.01/25/2024 6:14 PM Dictation Location: [place] [address] Transcribed By: [facility] 01/25/241813 Dictated By: Carroll Sparrow Jr, DO 01/25/241806 Signed By: <Electronically signed by Carroll Sparrow Jr, DO in OV> 01/25/241813 Narrative 01/25/2024 6:17 PM EDT [facility] Main [place] [address] [place] [address] [address] Scan Report Signed Patient: Mojgan Snider MR#: [id number] : 1955 Acct:[id number] Age/Sex: 68 / F ADM Date: 01/25/24 Loc: XT Room: Type: [facility] RCR Attending Dr: Fabiola Marinelli MD Copies [...] con Procedure Note Radiology, Radiologist, - 01/25/2024 [facility] Main [place] [address] [place] [address] CT Scan Report Signed Patient: Mojgan Snider [facility]#: [id number] : 7Acct:[id number] Age/Sex: 68 / FADM Date: 01/25/24 Loc: XT Room:Type: [facility] RCR Attending Dr: Fabiola Marinelli MD Copies [...] Sparrow Jr., D.O.01/25/2024 6:14 PM Dictation Location: [place] [address] Transcribed By: [facility] 01/25/24 181 Dictated By: Carroll Sparrow Jr, DO 01/25/24 1807 Signed By: <Electronically signed by Carroll Sparrow Jr, DO inOV> 01/25/24 1814 Fabiola Marinelli MD IMG CT PROCEDURES Final Result documented in this encounter Visit Diagnoses Not on filedocumented in this encounter Additional Health Concerns Assessment Noted Time PHQ-9 Depression Total Score: 0 11/30/19 24 9:00 AM EST documented as of this encounter Care Teams Mill Worker Relationship Specialty Start Date End Date Vitaliy Thomson MD [address] [place] [address] PCP - ACO Reach 03/26/23 Vitaliy Thomson MD [address] [place] [address] PCP - General Family Medicine 05/19/23 04/17/25 Power Swain DO [address] [place] [address] PCP - General Family Medicine 04/18/25 04/24/25 Power Swain DO [address] [place] [address] PCP - General Family Medicine 04/25/25 Fabiola Palumbo NP [address] [place] [address] Nurse Practitioner Family Medicine 05/19/23 01/19/25 Letty Newsome NP [address] [place] [address] Nurse Practitioner Pulmonary Disease 05/19/23 04/17/25 Sima Paul, LES [address] [place] [address] Registered Nurse Family Medicine 08/24/23 documented as of this encounter
--- OUTSIDE RECORDS SUMMARY | 2025-07-19 17:42 | XMS_ITS | Encounter Summary ---
Author Organization [facility] Address [address] [facility] [place] [address] Care Team Providers Care Systems Engineer Name Role Phone Vitaliy Thomson MD Unavailable [phone] Vitaliy Thomson MD Primary Care Provider [phone] Fabiola Palumbo NP Unavailable Letty Newsome NP Unavailable [phone] Sima Paul RN Unavailable [phone] Power Swain DO Primary Care Provider [phone] Power Swain DO Primary Care Provider [phone] Encounter Details Date Type Department Care Team (Late st Contact Info) Description 01/23/2024 [facility] [place] [facility] [address] [place] [address] Fabiola Palumbo NP [address] [facility] [address] [place] [address] Social History Tobacco Use Types Packs/Day Years [...] [address] [place] [address] Power Swain DO [address] [place] [address] documented as of this encounter Visit Diagnoses Not on filedocumented in this encounter Additional Health Concerns Assessment Noted Time PHQ-9 Depression Total Score: 0 11/30/19 24 9:00 AM EST documented as of this encounter Care Teams Systems Engineer Relationship Specialty Start Date End Date Vitaliy Thomson MD [address] [place] [address] PCP - ACO Reach 03/26/23 Vitaliy Thomson MD [address] [place] [address] PCP - General Family Medicine 05/19/23 04/17/[address] [place] [address] [place] [address] PCP - General Family Medicine 04/18/25 04/24/25 Power Swain DO [address] [facility] [address] [place] [address] PCP - General Family Medicine 04/25/25 Fabiola Palumbo NP [address] [place] [address] Nurse Practitioner Family Medicine 05/19/23 01/19/25 Letty Newsome NP [address] [place] [address] Nurse Practitioner Pulmonary Disease 05/19/23 04/17/25 Sima Paul, LES [address] [place] [address] Registered Nurse Family Medicine 08/24/23 documented as of this encounter
--- OUTSIDE RECORDS SUMMARY | 2025-07-19 17:42 | XMS_ITS | Encounter Summary ---
Author Organization [facility] Address [address] [place] [address] Care Team Providers Care Doctor Of Nurse Anesthesia Practice Name Role Phone Vitaliy Thomson MD Unavailable [phone] Vitaliy Thomson MD Primary Care Provider [phone] Fabiola Palumbo NP Unavailable Letty Newsome HOME CARE COORDINATOR Unavailable [phone] Sima Paul RN Unavailable [phone] Power Swain DO Primary Care Provider [phone] Power Swain DO Primary Care Provider [phone] Encounter Details Date Type Department Care Team (Late st Contact Info) Description 01/21/2024 External Result Encounter [facility] External Department Unsolicited Fabiola Marinelli MD [address] [place] [address] Social History Tobacco Use Types [...] [address] [place] [address] Power Swain DO [address] [place] [address] documented as of this encounter Procedures Procedure [...] Tracey Bah M.D.01/21/2024 2:47 PM Dictation Location: [place] [address] Transcribed By: [facility] 01/21/24 1447 Dictated By: Tracey Bah MD 01/21/24 1446 Signed By: <Electronically signed by MD Tracey Bah in OV> 01/21/24 1447 Narrative 01/21/2024 2:49 PM EDT [facility] Main [place] [address] [place] [address] XRay Report Signed Patient: Mojgan Snider MR#: [id number] 890 : 1955 Acct:[id number] Age/Sex: 68 / F ADM Date: 01/21/24 Loc: XT Room: Type: [facility] RCR Attending Dr: Fabiola Marinelli MD [...] 2V* Procedure Note Radiology, Radiologist, - 01/21/2024 [facility] Main [place] [address] [place] [address] XRay Report Signed Patient: Mojgan Snider SMR#: [id number] : 7Acct:[id number] Age/Sex: 68 / FADM Date: 01/21/24 Loc: XT Room:Type: [facility] RCR Attending Dr: Fabiola Marinelli MD [...] Tracey Bah M.D.01/21/2024 2:47 PM Dictation Location: [id number] Transcribed By: [facility] 01/21/24 1447 Dictated By: Tracey Bah MD 01/21/24 1446 Signed By: <Electronically signed by MD Tracey Bah in OV> 01/21/24 1447 Fabiola Marinelli MD IMG XR PROCEDURES Final Result documented in this encounter Visit Diagnoses Not on filedocumented in this encounter Additional Health Concerns Assessment Noted Time PHQ-9 Depression Total Score: 0 11/30/19 9:00 AM EST documented as of this encounter Care Teams Doctor Of Nurse Anesthesia Practice Relationship Specialty Start Date End Date Vitaliy Thomson MD [address] [place] [address] PCP - ACO Reach 03/26/23 Vitaliy Thomson MD [address] [place] [address] PCP - General Family Medicine 05/19/23 04/17/25 Power Swain DO [address] [place] [address] PCP - General Family Medicine 04/18/25 04/24/25 Power Swain DO [address] [place] [address] PCP - General Family Medicine 04/25/25 Fabiola Palumbo NP [address] [place] [address] Nurse Practitioner Family Medicine 05/19/23 01/19/25 Letty Newsome NP [address] [place] [address] Nurse Practitioner Pulmonary Disease 05/19/23 04/17/25 Sima Paul RN [address] [place] [address] Registered Nurse Family Medicine 08/24/23 documented as of this encounter
--- OUTSIDE RECORDS SUMMARY | 2025-07-19 17:42 | XMS_ITS | Encounter Summary ---
Author Organization [facility] Address [address] [facility] [place] [address] Care Team Providers Care Armature Winder Repair Name Role Phone Vitaliy Thomson MD Unavailable [phone] Vitaliy Thomson MD Primary Care Provider [phone] Fabiola Palumbo NP Unavailable Letty Newsome NP Unavailable [phone] Sima Paul RN Unavailable [phone] Power Swain DO Primary Care Provider [phone] Power Swain DO Primary Care Provider [phone] Encounter Details Date Type Department Care Team (Late st Contact Info) Description 04/21/2024 [facility] [place] [facility] [address] [place] [address] Fabiola Palumbo NP [address] [facility] [address] [place] [address] Social History Tobacco Use Types Packs/Day Years [...] [address] [place] [address] Power Swain DO [address] [place] [address] documented as of this encounter Procedures Procedure Name Priority Date/Time Associated Diagnosis Comments COMPREHENSIVE METABOLIC PANEL Routine 04/21/2024 3:31 PM EDT documented in this encounter Results * Comprehensive metabolic panel (04/21/2024 3:31 PM EDT) Blood Venous blood specimen / Unknown Fabiola Palumbo DISPOSAL OPERATOR LAB BLOOD ORDERABLES Final Resul t documented in this encounter Visit Diagnoses Not on filedocumented in this encounter Additional Health Concerns Assessment Noted Time PHQ-9 Depression Total Score: 0 11/30/19 24 9:00 AM EST documented as of this encounter Care Teams Armature Winder Repair Relationship Specialty Start Date End Date Vitaliy Thomson MD [address] [place] [address] PCP - ACO Reach 03/26/23 Vitaliy Thomson MD [address] [place] [address] PCP - General Family Medicine 05/19/23 04/17/25 Power Swain DO [address] [place] [address] PCP - General Family Medicine 04/18/25 04/24/25 Power Swain DO [address] [place] [address] PCP - General Family Medicine 04/25/25 Fabiola Palumbo NP [address] [place] [address] Nurse Practitioner Family Medicine 05/19/23 01/19/25 Letty [place]ome, DISPOSAL OPERATOR [address] [place] [address] Nurse Practitioner Pulmonary Disease 05/19/23 04/17/25 Sima Paul, LES [address] [place] [address] Registered Nurse Family Medicine 08/24/23 documented as of this encounter
--- OUTSIDE RECORDS SUMMARY | 2025-07-19 17:42 | XMS_ITS | Encounter Summary ---
Author Organization [facility] Address [address] [facility] [address] Care Team Providers Care Women'S Health Care Nurse Practitioner Name Role Phone Vitaliy Thomson MD Unavailable [phone] Vitaliy Thomson MD Primary Care Provider [phone] Fabiola Palumbo NP Unavailable Letty Newsome NP Unavailable [phone] Sima Paul RN Unavailable [phone] Power Swain DO Primary Care Provider [phone] Power Swain DO Primary Care Provider [phone] Encounter Details Date Type Department Care Team (Late st Contact Info) Description 03/24/2024 [facility] [place] [facility] [address] [place] [address] Fabiola Palumbo NP [address] [facility] [address] [place] [address] Social History Tobacco Use Types Packs/Day Years [...] [address] [place] [address] Power Swain DO [address] [place] [address] documented as of this encounter Visit Diagnoses Not on filedocumented in this encounter Additional Health Concerns Assessment Noted Time PHQ-9 Depression Total Score: 0 11/30/19 24 9:00 AM EST documented as of this encounter Care Teams Women'S Health Care Nurse Practitioner Relationship Specialty Start Date End Date Vitaliy Thomson MD [address] [place] [address] PCP - ACO Reach 03/26/23 Vitaliy Thomson MD [address] [place] [address] PCP - General Family Medicine 05/19/23 04/17/[address] [place] [address] PCP - General Family Medicine 04/18/25 04/24/25 Power Swain DO [address] [facility] [address] [place] [address] PCP - General Family Medicine 04/25/25 Fabiola Palumbo NP [address] [place] [address] Nurse Practitioner Family Medicine 05/19/23 01/19/25 Letty Newsome NP [address] [place] [address] Nurse Practitioner Pulmonary Disease 05/19/23 04/17/25 Sima Paul, LES [address] [place] [address] Registered Nurse Family Medicine 08/24/23 documented as of this encounter
--- OUTSIDE RECORDS SUMMARY | 2025-07-19 17:42 | XMS_ITS | Encounter Summary ---
Author Organization [facility] Address [address] [facility] [place] [address] Care Team Providers Care Verifying Specialist Name Role Phone Vitaliy Thomson MD Unavailable [phone] Vitaliy Thomson MD Primary Care Provider [phone] Fabiola Palumbo NP Unavailable Letty Newsome MARINE ANIMAL TRAINER Unavailable [phone] Sima Paul RN Unavailable [phone] Power Swain DO Primary Care Provider [phone] Power Swain DO Primary Care Provider [phone] Encounter Details Date Type Department Care Team (Late st Contact Info) Description 04/21/2024 Abstract [facility] [place] [facility] [address] [place] [address] Vitaliy Thomson MD [address] [place] [address] Social History Tobacco Use Types Packs/Day Years [...] [address] [place] [address] Power Swain DO [address] [place] [address] documented as of this encounter Visit Diagnoses Not on filedocumented in this encounter Additional Health Concerns Assessment Noted Time PHQ-9 Depression Total Score: 0 11/30/19 24 9:00 AM EST documented as of this encounter Care Teams Verifying Specialist Relationship Specialty Start Date End Date Vitaliy Thomson MD [address] [place] [address] PCP - ACO Reach 03/26/23 Vitaliy Thomson MD [address] [place] [address] PCP - General Family Medicine 05/19/23 04/17/[address] [place] [address] PCP - General Family Medicine 04/18/25 04/24/25 Power Swain DO [address] [facility] [address] [place] [address] PCP - General Family Medicine 04/25/25 Fabiola Palumbo NP [address] [place] [address] Nurse Practitioner Family Medicine 05/19/23 01/19/25 Letty Newsome NP [address] [place] [address] Nurse Practitioner Pulmonary Disease 05/19/23 04/17/25 Sima Paul, LES [address] [place] [address] Registered Nurse Family Medicine 08/24/23 documented as of this encounter
--- OUTSIDE RECORDS SUMMARY | 2025-07-19 17:42 | XMS_ITS | Encounter Summary ---
Author Organization [facility] Address [address] [facility] [facility] [place] [address] Care Team Providers Care Barrel Drum Cutter Name Role Phone Vitaliy Thomson MD Unavailable [phone] Vitaliy Thomson MD Primary Care Provider [phone] Fabiola Palumbo NP Unavailable Letty Newsome NP Unavailable [phone] Sima Paul RN Unavailable [phone] Power Swain DO Primary Care Provider [phone] Power Swain DO Primary Care Provider [phone] Encounter Details Date Type Department Care Team (Late st Contact Info) Description 04/19/2024 Abstract [facility] [address] [place] [address] Fabiola Palumbo NP [address] [facility] [address] [place] [address] Social History Tobacco Use Types Packs/Day Years [...] [address] [place] [address] Power Swain DO [address] [place] [address] documented as of this encounter Visit Diagnoses Not on filedocumented in this encounter Additional Health Concerns Assessment Noted Time PHQ-9 Depression Total Score: 0 11/30/19 24 9:00 AM EST documented as of this encounter Care Teams Barrel Drum Cutter Relationship Specialty Start Date End Date Vitaliy Thomson MD [address] [place] [address] PCP - ACO Reach 03/26/23 Vitaliy Thomson MD [address] [place] [address] PCP - General Family Medicine 05/19/23 04/17/[address] [place] [address] PCP - General Family Medicine 04/18/25 04/24/25 Power Swain DO [address] [facility] [address] [place] [address] PCP - General Family Medicine 04/25/25 Fabiola Palumbo NP [address] [place] [address] Nurse Practitioner Family Medicine 05/19/23 01/19/25 Letty Newsome NP [address] [place] [address] Nurse Practitioner Pulmonary Disease 05/19/23 04/17/25 Sima Paul, LES [address] [place] [address] Registered Nurse Family Medicine 08/24/23 documented as of this encounter
--- OUTSIDE RECORDS SUMMARY | 2025-07-19 17:42 | XMS_ITS | Encounter Summary ---
Author Organization [facility] Address [address] [facility] [place] [address] Care Team Providers Care Print Color Matcher Name Role Phone Vitaliy Thomson MD Unavailable [phone] Vitaliy Thomson MD Primary Care Provider [phone] Fabiola Palumbo NP Unavailable Letty Newsome NP Unavailable [phone] Sima Paul RN Unavailable [phone] Power Swain DO Primary Care Provider [phone] Power Swain DO Primary Care Provider [phone] Encounter Details Date Type Department Care Team (Late st Contact Info) Description 01/25/2024 Abstract [facility] [address] [place] [address] Fabiola Palumbo NP [address] [facility] [address] [place] [address] Social History Tobacco Use Types Packs/Day Years [...] [address] [place] [address] Power Swain DO [address] [place] [address] documented as of this encounter Visit Diagnoses Not on filedocumented in this encounter Additional Health Concerns Assessment Noted Time PHQ-9 Depression Total Score: 0 11/30/19 24 9:00 AM EST documented as of this encounter Care Teams Print Color Matcher Relationship Specialty Start Date End Date Vitaliy Thomson MD [address] [place] [address] PCP - ACO Reach 03/26/23 Vitaliy Thomson MD [address] [place] [address] PCP - General Family Medicine 05/19/23 04/17/[address] [place] [address] PCP - General Family Medicine 04/18/25 04/24/25 Power Swain DO [address] [facility] [address] [place] [address] PCP - General Family Medicine 04/25/25 Fabiola Palumbo NP [address] [place] [address] Nurse Practitioner Family Medicine 05/19/23 01/19/25 Letty Newsome NP [address] [place] [address] Nurse Practitioner Pulmonary Disease 05/19/23 04/17/25 Sima Paul, LES [address] [place] [address] Registered Nurse Family Medicine 08/24/23 documented as of this encounter
--- OUTSIDE RECORDS SUMMARY | 2025-07-19 17:42 | XMS_ITS | Encounter Summary ---
Author Organization [facility] Address [address] [place] [address] Care Team Providers Care Sales Representative Consultant Name Role Phone Vitaliy Thomson MD Unavailable [phone] Vitaliy Thomson MD Primary Care Provider [phone] Fabiola Palumbo NP Unavailable Letty Newsome JEWEL STRINGER Unavailable [phone] Sima Paul RN Unavailable [phone] Power Swain DO Primary Care Provider [phone] Power Swain DO Primary Care Provider [phone] Encounter Details Date Type Department Care Team (Late st Contact Info) Description 01/25/2024 External Result Encounter [facility] External Department Unsolicited Fabiola Marinelli MD [address] [place] [address] Social History Tobacco Use Types [...] [facility] [place] [facility] [address] [place] [address] Power Swain DO [address] [place] [address] documented as of this encounter Procedures Procedure [...] Sparrow Jr., D.O.01/25/2024 6:24 PM Dictation Location: [place] [address] Transcribed By: PWS 01/25/241823 Dictated By: Carroll Sparrow Jr, DO 01/25/241822 Signed By: <Electronically signed by Carroll Sparrow Jr, DO in OV> 01/25/241823 Narrative 01/25/2024 6:26 PM EDT [facility] Main [address] [address] [address] Scan Report Signed Patient: Mojgan Snider MR#: [id number] : 1955 Acct:[id number] Age/Sex: 68 / F ADM Date: 01/25/24 Loc: XT Room: Type: [facility] RCR Attending Dr: Fabiola Marinelli [...] chest w con Procedure Note Radiology, Radiologist, MD - 01/25/2024 [facility] Main [place] [address] [place] [address] CT Scan Report Signed Patient: Mojgan Snider SMR#: [id number] : 7Acct:[id number] Age/Sex: 68 / FADM Date: 01/25/24 Loc: XT Room:Type: [facility] RCR Attending Dr: Fabiola Marinelli [...] Sparrow Jr., D.O.01/25/2024 6:24 PM Dictation Location: [facility]15 Transcribed By: [facility] 01/25/241823 Dictated By: Carroll Sparrow Jr, [...] as of this encounter Care Teams Sales Representative Consultant Relationship Specialty Start Date End Date Vitaliy Thomson MD [address] [place] [address] PCP - ACO Reach 03/26/23 Vitaliy Thomson MD [address] [place] [address] PCP - General Family Medicine 05/19/23 04/17/25 Power Swain DO [address] [place] [address] PCP - General Family Medicine 04/18/25 04/24/25 Power Swain DO [address] [place] [address] PCP - General Family Medicine 04/25/25 Fabiola Palumbo NP [address] [place] [address] Nurse Practitioner Family Medicine 05/19/23 01/19/25 Letty Newsome NP [address] [place] [address] Nurse Practitioner Pulmonary Disease 05/19/23 04/17/25 Sima Paul, RN [address] [place] [address] Registered Nurse Family Medicine 08/24/23 documented as of this encounter
--- OUTSIDE RECORDS SUMMARY | 2025-07-19 17:42 | XMS_ITS | Encounter Summary ---
Author Organization [facility] Address [address] [facility] [place] [address] Care Team Providers Care Electrocardiographic Technician Name Role Phone Vitaliy Thomson MD Unavailable [phone] Vitaliy Thomson MD Primary Care Provider [phone] Fabiola Palumbo NP Unavailable Letty Newsome DESIGN ENGINEERING MANAGER Unavailable [phone] Sima Paul RN Unavailable [phone] Power Swain DO Primary Care Provider [phone] Power Swain DO Primary Care Provider [phone] Encounter Details Date Type Department Care Team (Late st Contact Info) Description 05/24/2024 Abstract [facility] [address] [place] [address] Vitaliy Thomson MD [address] [place] [address] Social History Tobacco Use Types Packs/Day Years [...] [address] [place] [address] Power Swain DO [address] [place] [address] documented as of this encounter Visit Diagnoses Not on filedocumented in this encounter Additional Health Concerns Assessment Noted Time PHQ-9 Depression Total Score: 0 11/30/19 24 9:00 AM EST documented as of this encounter Care Teams Electrocardiographic Technician Relationship Specialty Start Date End Date Vitaliy Thomson MD [address] [place] [address] PCP - ACO Reach 03/26/23 Vitaliy Thomson MD [address] [place] [address] PCP - General Family Medicine 05/19/23 04/17/[address] [place] [address] PCP - General Family Medicine 04/18/25 04/24/25 Power Swain DO [address] [facility] [address] [place] [address] PCP - General Family Medicine 04/25/25 Fabiola Palumbo NP [address] [place] [address] Nurse Practitioner Family Medicine 05/19/23 01/19/25 Letty Newsome NP [address] [place] [address] Nurse Practitioner Pulmonary Disease 05/19/23 04/17/25 Sima Paul, LES [address] [place] [address] Registered Nurse Family Medicine 08/24/23 documented as of this encounter
--- OUTSIDE RECORDS SUMMARY | 2025-07-19 17:42 | XMS_ITS | Encounter Summary ---
Author Organization [facility] Address [address] [facility] [place] [address] Care Team Providers Care Freight Shipping Agent Name Role Phone Vitaliy Thomson MD Unavailable [phone] Vitaliy Thomson MD Primary Care Provider [phone] Fabiola Palumbo NP Unavailable Letty Newsome FIELD SALES AGENT Unavailable [phone] Sima Paul RN Unavailable [phone] Power Swain DO Primary Care Provider [phone] Power Swain DO Primary Care Provider [phone] Encounter Details Date Type Department Care Team (Late st Contact Info) Description 01/05/2024 Abstract [facility] [address] [place] [address] Marcie Cota MA Social History Tobacco Use [...] [address] [place] [address] Power Swain DO [address] [place] [address] documented as of this encounter Visit Diagnoses Not on filedocumented in this encounter Additional Health Concerns Assessment Noted Time PHQ-9 Depression Total Score: 0 11/30/19 9:00 AM EST documented as of this encounter Care Teams Freight Shipping Agent Relationship Specialty Start Date End Date Vitaliy Thomson MD [address] [place] [address] PCP - ACO Reach 03/26/23 Vitaliy Thomson MD [address] [place] [address] PCP - General Family Medicine 05/19/23 04/17/[address] [place] [address] PCP - General Family Medicine 04/18/25 04/24/25 Power Swain DO [address] [place] [address] PCP - General Family Medicine 04/25/25 Fabiola Palumbo, FIELD SALES AGENT [address] [place] [address] Nurse Practitioner Family Medicine 05/19/23 01/19/25 Letty Newsome NP [address] [place] [address] Nurse Practitioner Pulmonary Disease 05/19/23 04/17/25 Sima Paul, RN [address] [place] [address] Registered Nurse Family Medicine 08/24/23 documented as of this encounter
--- OUTSIDE RECORDS SUMMARY | 2025-07-19 17:42 | XMS_ITS | Encounter Summary ---
Author Organization [facility] Address [address] [facility] [place] [address] Care Team Providers Care Coremaking Machine Setter Name Role Phone Vitaliy Thomson MD Unavailable [phone] Vitaliy Thomson MD Primary Care Provider [phone] Fabiola Palumbo NP Unavailable Letty Newsome NP Unavailable [phone] Sima Paul RN Unavailable [phone] Power Swain DO Primary Care Provider [phone] Power Swain DO Primary Care Provider [phone] Encounter Details Date Type Department Care Team (Late st Contact Info) Description 03/21/2024 Abstract [facility] [address] [place] [address] Fabiola aPlumbo NP [address] [facility] [address] [place] [address] Social History Tobacco Use Types Packs/Day Years [...] [address] [place] [address] Power Swain DO [address] [place] [address] documented as of this encounter Visit Diagnoses Not on filedocumented in this encounter Additional Health Concerns Assessment Noted Time PHQ-9 Depression Total Score: 0 11/30/19 24 9:00 AM EST documented as of this encounter Care Teams Coremaking Machine Setter Relationship Specialty Start Date End Date Vitaliy Thomson MD [address] [place] [address] PCP - ACO Reach 03/26/23 Vitaliy Thomson MD [address] [place] [address] PCP - General Family Medicine 05/19/23 04/17/[address] [place] [address] PCP - General Family Medicine 04/18/25 04/24/25 Power Swain DO [address] [facility] [address] [place] [address] PCP - General Family Medicine 04/25/25 Fabiola Palumbo NP [address] [place] [address] Nurse Practitioner Family Medicine 05/19/23 01/19/25 Letty Newsome NP [address] [place] [address] Nurse Practitioner Pulmonary Disease 05/19/23 04/17/25 Sima Paul, LES [address] [place] [address] Registered Nurse Family Medicine 08/24/23 documented as of this encounter
--- OUTSIDE RECORDS SUMMARY | 2025-07-19 17:42 | XMS_ITS | Encounter Summary ---
Author Organization [facility] Address [address] [facility] [place] [address] Care Team Providers Care Apprentice Architect Name Role Phone Vitaliy Thomson MD Unavailable [phone] Vitaliy Thomson MD Primary Care Provider [phone] Fabiola Palumbo NP Unavailable Letty Newsome NP Unavailable [phone] Sima Paul RN Unavailable [phone] Power Swain DO Primary Care Provider [phone] Power Swain DO Primary Care Provider [phone] Encounter Details Date Type Department Care Team (Late st Contact Info) Description 04/11/2024 Abstract [facility] [address] [place] [address] Fabiola Palumbo NP [address] [facility] [address] [place] [address] Social History Tobacco Use Types Packs/Day Years [...] [address] [place] [address] Power wSain DO [address] [place] [address] documented as of this encounter Visit Diagnoses Not on filedocumented in this encounter Additional Health Concerns Assessment Noted Time PHQ-9 Depression Total Score: 0 11/30/19 24 9:00 AM EST documented as of this encounter Care Teams Apprentice Architect Relationship Specialty Start Date End Date Vitaliy Thomson MD [address] [place] [address] PCP - ACO Reach 03/26/23 Vitaliy Thomson MD [address] [place] [address] PCP - General Family Medicine 05/19/23 04/17/[address] [place] [address] PCP - General Family Medicine 04/18/25 04/24/25 Power Swain DO [address] [facility] [address] [place] [address] PCP - General Family Medicine 04/25/25 Fabiola Palumbo NP [address] [place] [address] Nurse Practitioner Family Medicine 05/19/23 01/19/25 Letty Newsome NP [address] [place] [address] Nurse Practitioner Pulmonary Disease 05/19/23 04/17/25 Sima Paul, LES [address] [place] [address] Registered Nurse Family Medicine 08/24/23 documented as of this encounter
--- OUTSIDE RECORDS SUMMARY | 2025-07-19 17:42 | XMS_ITS | Encounter Summary ---
Author Organization [facility] Address [address] [address] Care Team Providers Care Hotel Baggage Handler Name Role Phone Vitaliy Thomson MD Unavailable [phone] Vitaliy Thomson MD Primary Care Provider [phone] Fabiola Palumbo NP Unavailable Letty Newsome OBGYN NURSE Unavailable [phone] Sima Paul RN Unavailable [phone] Power Swain DO Primary Care Provider [phone] Power Swain DO Primary Care Provider [phone] Encounter Details Date Type Department Care Team (Late st Contact Info) Description 04/11/2024 Abstract [facility] [address] [place] [address] Vitaliy Thomson MD [address] [place] [address] Social History Tobacco Use Types Packs/Day Years [...] [address] [place] [address] Power Swain DO [address] [place] [address] documented as of this encounter Visit Diagnoses Not on filedocumented in this encounter Additional Health Concerns Assessment Noted Time PHQ-9 Depression Total Score: 0 11/30/19 24 9:00 AM EST documented as of this encounter Care Teams Hotel Baggage Handler Relationship Specialty Start Date End Date Vitaliy Thomson MD [address] [place] [address] PCP - ACO Reach 03/26/23 Vitaliy Thomson MD [address] [place] [address] PCP - General Family Medicine 05/19/23 04/17/[address] [place] [address] PCP - General Family Medicine 04/18/25 04/24/25 Power Swain DO [address] [facility] [address] [place] [address] PCP - General Family Medicine 04/25/25 Fabiola Palumbo NP [address] [place] [address] Nurse Practitioner Family Medicine 05/19/23 01/19/25 Letty Newsome NP [address] [place] [address] Nurse Practitioner Pulmonary Disease 05/19/23 04/17/25 Sima Paul, LES [address] [place] [address] Registered Nurse Family Medicine 08/24/23 documented as of this encounter
--- OUTSIDE RECORDS SUMMARY | 2025-07-19 17:42 | XMS_ITS | Encounter Summary ---
Author Organization [facility] Address [address] [facility] [place] [address] Care Team Providers Care Education Professor Name Role Phone Vitaliy Thomson MD Unavailable [phone] Vitaliy Thomson MD Primary Care Provider [phone] Fabiola Palumbo NP Unavailable Letty Newsome NP Unavailable [phone] Sima Paul RN Unavailable [phone] Power Swain DO Primary Care Provider [phone] Power Swain DO Primary Care Provider [phone] Encounter Details Date Type Department Care Team (Late st Contact Info) Description 04/11/2024 Abstract [facility] [address] [place] [address] Fabiola Palumbo NP [address] [facility] [address] [place] [address] Social History Tobacco Use Types Packs/Day Years [...] [address] [place] [address] Power Swain DO [address] [place] [address] documented as of this encounter Visit Diagnoses Not on filedocumented in this encounter Additional Health Concerns Assessment Noted Time PHQ-9 Depression Total Score: 0 11/30/19 24 9:00 AM EST documented as of this encounter Care Teams Education Professor Relationship Specialty Start Date End Date Vitaliy Thomson MD [address] [place] [address] PCP - ACO Reach 03/26/23 Vitaliy Thomson MD [address] [place] [address] PCP - General Family Medicine 05/19/23 04/17/[address] [place] [address] PCP - General Family Medicine 04/18/25 04/24/25 Power Swain DO [address] [facility] [address] [place] [address] PCP - General Family Medicine 04/25/25 Fabiola Palumbo NP [address] [place] [address] Nurse Practitioner Family Medicine 05/19/23 01/19/25 Letty Newsome NP [address] [place] [address] Nurse Practitioner Pulmonary Disease 05/19/23 04/17/25 Sima Paul, LES [address] [place] [address] Registered Nurse Family Medicine 08/24/23 documented as of this encounter
--- OUTSIDE RECORDS SUMMARY | 2025-07-19 17:42 | XMS_ITS | Encounter Summary ---
Author Organization [facility] Address [address] [facility] [place] [address] Care Team Providers Care Flat Hammerer Name Role Phone Vitaliy Thomson MD Unavailable [phone] Vitaliy Thomson MD Primary Care Provider [phone] Fabiola Palumbo NP Unavailable Letty Newsome NP Unavailable [phone] Sima Paul RN Unavailable [phone] Power Swain DO Primary Care Provider [phone] Power Swain DO Primary Care Provider [phone] Encounter Details Date Type Department Care Team (Late st Contact Info) Description 04/13/2024 Abstract [facility] [address] [place] [address] Fabiola Palumbo NP [address] [facility] [address] [place] [address] Social History Tobacco Use Types Packs/Day Years [...] [address] [place] [address] Power Swain DO [address] [place] [address] documented as of this encounter Visit Diagnoses Not on filedocumented in this encounter Additional Health Concerns Assessment Noted Time PHQ-9 Depression Total Score: 0 11/30/19 24 9:00 AM EST documented as of this encounter Care Teams Flat Hammerer Relationship Specialty Start Date End Date Vitaliy Thomson MD [address] [place] [address] PCP - ACO Reach 03/26/23 Vitaliy Thomson MD [address] [place] [address] PCP - General Family Medicine 05/19/23 04/17/[address] [place] [address] PCP - General Family Medicine 04/18/25 04/24/25 Power Swain DO [address] [facility] [address] [place] [address] PCP - General Family Medicine 04/25/25 Fabiola Palumbo NP [address] [place] [address] Nurse Practitioner Family Medicine 05/19/23 01/19/25 Letty Newsome NP [address] [place] [address] Nurse Practitioner Pulmonary Disease 05/19/23 04/17/25 Sima Paul, LES [address] [place] [address] Registered Nurse Family Medicine 08/24/23 documented as of this encounter
--- OUTSIDE RECORDS SUMMARY | 2025-07-19 17:42 | XMS_ITS ---
Author Organization [facility] Address [address] [place] [address] Care Team Providers Care Body Wirer Name Role Phone Vitaliy Thomson MD Unavailable [phone] Sima Paul RN Unavailable [phone] Power Swain DO Primary Care Provider [phone] Chronic Care Management (CCM) Status:Enrolled (Active) Start date:08/24/2023 Enrollment date:08/24/2023 Enrollment reason:Identified as high-risk Overview Addresses patients in need of care management services. 08/24/23, 10:00 AM - Sima Paul RN- Patient gives verbal consent to be enrolled in CCM Program and understands there could be a bill for this service. Case Team Name Relationship Phone Sima Paul RN(Responsible Staff) Melony Herbert [phone] Continued Care and Services Coordination
--- OUTSIDE RECORDS SUMMARY | 2025-07-19 17:42 | XMS_ITS | Encounter Summary ---
Author Organization [facility] Address [address] [place] [address] Care Team Providers Care Torch Shearer Name Role Phone Vitaliy Thomson MD Unavailable [phone] Vitaliy Thomson MD Primary Care Provider [phone] Fabiola Palumbo NP Unavailable Letty Newsome NP Unavailable [phone] Sima Paul RN Unavailable [phone] Power Swain DO Primary Care Provider [phone] Power Swain DO Primary Care Provider [phone] Encounter Details Date Type Department Care Team (Late st Contact Info) Description 03/21/2024 [facility] [address] [place] [address] Fabiola Palumbo NP [address] [facility] [address] [place] [address] Social History Tobacco Use Types Packs/Day Years [...] [address] [place] [address] Power Swain DO [address] [place] [address] documented as of this encounter Visit Diagnoses Not on filedocumented in this encounter Additional Health Concerns Assessment Noted Time PHQ-9 Depression Total Score: 0 11/30/19 24 9:00 AM EST documented as of this encounter Care Teams Torch Shearer Relationship Specialty Start Date End Date Vitaliy Thomson MD [address] [place] [address] PCP - ACO Reach 03/26/23 Vitaliy hTomson MD [address] [place] [address] PCP - General Family Medicine 05/19/23 04/17/[address] [place] [address] PCP - General Family Medicine 04/18/25 04/24/25 Power Swain DO [address] [facility] [address] [place] [address] PCP - General Family Medicine 04/25/25 Fabiola Palumbo NP [address] [place] [address] Nurse Practitioner Family Medicine 05/19/23 01/19/25 Letty Newsome NP [address] [place] [address] Nurse Practitioner Pulmonary Disease 05/19/23 04/17/25 Sima Paul, LES [address] [place] [address] Registered Nurse Family Medicine 08/24/23 documented as of this encounter
--- OUTSIDE RECORDS SUMMARY | 2025-07-19 17:42 | XMS_ITS | Encounter Summary ---
Author Organization [facility] Address [address] [facility] [place] [address] Care Team Providers Care Dust Control Engineer Name Role Phone Vitaliy Thomson MD Unavailable [phone] Vitaliy Thomson MD Primary Care Provider [phone] Fabiola Palumbo NP Unavailable Letty Newsome DIRECTOR OF EPIDEMIOLOGY Unavailable [phone] Sima Paul RN Unavailable [phone] Power Swain DO Primary Care Provider [phone] Power Swain DO Primary Care Provider [phone] Encounter Details Date Type Department Care Team (Late st Contact Info) Description 04/11/2024 Abstract [facility] [address] [place] [address] Vitaliy Thomson MD [address] [place] [address] Social History Tobacco Use Types Packs/Day Years [...] [address] [place] [address] Power Swain DO [address] [place] [address] documented as of this encounter Visit Diagnoses Not on filedocumented in this encounter Additional Health Concerns Assessment Noted Time PHQ-9 Depression Total Score: 0 11/30/19 24 9:00 AM EST documented as of this encounter Care Teams Dust Control Engineer Relationship Specialty Start Date End Date Vitaliy Thomson MD [address] [place] [address] PCP - ACO Reach 03/26/23 Vitaliy Thomson MD [address] [place] [address] PCP - General Family Medicine 05/19/23 04/17/[address] [place] [address] [place] [address] PCP - General Family Medicine 04/18/25 04/24/25 Power Swain DO [address] [facility] [address] [place] [address] PCP - General Family Medicine 04/25/25 Fabiola Palumbo NP [address] [place] [address] Nurse Practitioner Family Medicine 05/19/23 01/19/25 Letty Newsome NP [address] [place] [address] Nurse Practitioner Pulmonary Disease 05/19/23 04/17/25 Sima Paul, LES [address] [place] [address] Registered Nurse Family Medicine 08/24/23 documented as of this encounter
--- OUTSIDE RECORDS SUMMARY | 2025-07-19 17:42 | XMS_ITS | Encounter Summary ---
Author Organization [facility] Address [address] [facility] [place] [address] Care Team Providers Care Adjunct Professor Of English Name Role Phone Vitaliy Thomson MD Unavailable [phone] Vitaliy Thomson MD Primary Care Provider [phone] Fabiola Palumbo NP Unavailable Letty Newsome CONSERVATOR [employer] Unavailable [phone] Sima Paul RN Unavailable [phone] Power Swain DO Primary Care Provider [phone] Power Swain DO Primary Care Provider [phone] Encounter Details Date Type Department Care Team (Late st Contact Info) Description 01/05/2024 Abstract [facility] [address] [place] [address] Marcie Cota [place] Social History Tobacco Use [...] [address] [place] [address] Power Swain DO [address] [place] [address] documented as of this encounter Visit Diagnoses Not on filedocumented in this encounter Additional Health Concerns Assessment Noted Time PHQ-9 Depression Total Score: 0 11/30/19 9:00 AM EST documented as of this encounter Care Teams Adjunct Professor Of English Relationship Specialty Start Date End Date Vitaliy Thomson MD [address] [place] [address] PCP - ACO Reach 03/26/23 Vitaliy Thomson MD [address] [place] [address] PCP - General Family Medicine 05/19/23 04/17/[address] [place] [address] PCP - General Family Medicine 04/18/25 04/24/25 Power Swain DO [address] [place] [address] PCP - General Family Medicine 04/25/25 Fabiola Palumbo, CON[employer]ATOR [employer] [address] [place] [address] Nurse Practitioner Family Medicine 05/19/23 01/19/25 Letty Newsome NP [address] [place] [address] Nurse Practitioner Pulmonary Disease 05/19/23 04/17/25 Sima Paul, RN [address] [place] [address] Registered Nurse Family Medicine 08/24/23 documented as of this encounter
--- OUTSIDE RECORDS SUMMARY | 2025-07-19 17:42 | XMS_ITS | Encounter Summary ---
Author Organization [facility] Address [address] [place] [address] Care Team Providers Care Ring Making Machine Operator Name Role Phone Vitaliy Thomson MD Unavailable [phone] Vitaliy Thomson MD Primary Care Provider [phone] Fabiola Palumbo NP Unavailable Letty Newsome BATTERY STARTER Unavailable [phone] Sima Paul RN Unavailable [phone] Power Swain DO Primary Care Provider [phone] Power Swain DO Primary Care Provider [phone] Encounter Details Date Type Department Care Team (Late st Contact Info) Description 02/22/2024 Abstract [facility] [address] [place] [address] Vitaliy Thomson MD [address] [place] [address] Social History Tobacco Use Types Packs/Day Years [...] Family Practice [address], [facility] [address] [place] [address] Power Swain DO [address] [place] [address] documented as of this encounter Visit Diagnoses Not on filedocumented in this encounter Additional Health Concerns Assessment Noted Time PHQ-9 Depression Total Score: 0 11/30/19 24 9:00 AM EST documented as of this encounter Care Teams Ring Making Machine Operator Relationship Specialty Start Date End Date Vitaliy Thomson MD [address] [place] [address] PCP - ACO Reach 03/26/23 Vitaliy Thomson MD [address] [place] [address] PCP - General Family Medicine 05/19/23 04/17/[address] [place] [address] PCP - General Family Medicine 04/18/25 04/24/25 Power Swain DO [address] [facility] [address] [place] [address] PCP - General Family Medicine 04/25/25 Fabiola Palumbo NP [address] [place] [address] Nurse Practitioner Family Medicine 05/19/23 01/19/25 Letty Newsome NP [address] [place] [address] Nurse Practitioner Pulmonary Disease 05/19/23 04/17/25 Sima Paul, LES [address] [place] [address] Registered Nurse Family Medicine 08/24/23 documented as of this encounter
--- OUTSIDE RECORDS SUMMARY | 2025-07-19 17:42 | XMS_ITS | Encounter Summary ---
Author Organization [facility] Address [address] [facility] [place] [address] Care Team Providers Care Crisis Nurse Name Role Phone Vitaliy Thomson MD Unavailable [phone] Vitaliy Thomson MD Primary Care Provider [phone] Fabiola Palumbo NP Unavailable Letty Newsome NP Unavailable [phone] Sima Paul RN Unavailable [phone] Power Swain DO Primary Care Provider [phone] Power Swain DO Primary Care Provider [phone] Encounter Details Date Type Department Care Team (Late st Contact Info) Description 04/19/2024 [facility] [address] [place] [address] Fabiola Palumbo NP [address] [facility] [address] [place] [address] Social History Tobacco Use Types Packs/Day Years [...] [address] [place] [address] Power Swain DO [address] [place] [address] documented as of this encounter Visit Diagnoses Not on filedocumented in this encounter Additional Health Concerns Assessment Noted Time PHQ-9 Depression Total Score: 0 11/30/19 24 9:00 AM EST documented as of this encounter Care Teams Crisis Nurse Relationship Specialty Start Date End Date Vitaliy Thomson MD [address] [place] [address] PCP - ACO Reach 03/26/23 Vitaliy Thosmon MD [address] [place] [address] PCP - General Family Medicine 05/19/23 04/17/[address] [place] [address] PCP - General Family Medicine 04/18/25 04/24/25 Power Swain DO [address] [facility] [address] [place] [address] PCP - General Family Medicine 04/25/25 Fabiola Palumbo NP [address] [place] [address] Nurse Practitioner Family Medicine 05/19/23 01/19/25 Letty Newsome NP [address] [place] [address] Nurse Practitioner Pulmonary Disease 05/19/23 04/17/25 Sima Paul, LES [address] [place] [address] Registered Nurse Family Medicine 08/24/23 documented as of this encounter
[2025-07-19 18:17] LABS: Glucose Urine UA NEGATIVE (NEGATIVE)
[2025-07-19 18:26] LABS: Cast Seen? NONE SEEN #/LPF (NONE SEEN); Crystals Seen? None Seen #/HPF (None Seen); Urine Culture Indicated NO
--- NOTE | 2025-07-19 19:37 | CT_ITS ---
The [address] [address] Patient Name: NANNETTE PÉREZ MRN: [id number] date: 1955 Sex: F Assigned Patient Location: ER Current Patient Location: ER Accession/Order Number: [id number] Exam Date: 07/19/2025 19:47 Report Date: 07/19/2025 20:21 At the request of: GABE NOBLE Procedure: CT abdomen pelvis wo con CT abdomen pelvis wo con 07/19/2025 7:49 PM SIGNS AND SYMPTOMS: ^Right Flank pain, PMH Stones, Multiple Myeloma TECHNIQUE: Multidetector ct axial images of the abdomen and pelvis were obtained without IV contrast. Multiplanar reformats were performed and reviewed to further define anatomy and possible pathology. CT was performed with one or more of the following dose reduction techniques: Automated exposure control, adjustment of the mA and/or kV according to patient size, or use of iterative reconstruction technique. COMPARISON: None. FINDINGS: Lower Chest: Atherosclerotic changes are noted in the thoracic aorta and coronary arteries. There is linear scarring in the right lung base. ABDOMEN: Liver: There is hepatic cirrhosis. Bile Ducts: Normal caliber. Gallbladder: Previously removed Pancreas: Within normal limits. Spleen: There is splenomegaly. The spleen contains multiple calcified granulomas. Adrenals: Within normal limits. Kidneys: Within normal limits. Pelvis: Reproductive Organs: No pelvic masses. Ureters: Within normal limits. Bladder: Within normal limits. Bowel: There is a large amount of stool within the colon and rectum consistent with constipation. There are uncomplicated diverticula. Mesenteric Lymph Nodes: No enlarged mesenteric lymph nodes. Peritoneum: A small amount of free fluid is noted within a ventral wall hernia. Vessels: Atherosclerotic changes are noted in the abdominal aorta and its branches. Multiple venous varices are noted consistent with portal venous hypertension and hepatic cirrhosis. Retroperitoneum: Within normal limits. Abdominal Wall: There is a ventral wall hernia containing intraperitoneal fat, venous varices, and free fluid. Bones: Degenerative changes are noted in the thoracolumbar spine, hips, and sacroiliac joints. CT/CT abdomen pelvis wo con IMPRESSION: No bowel obstruction or obstructive uropathy. There is a large amount of stool within the colon and rectum consistent with constipation. There is hepatic cirrhosis with venous varices and a small amount of intra-abdominal ascites within a ventral wall hernia. Impression dictated by: Justus Frazier M.D. 07/19/2025 8:21 PM Dictation Location: [place] [address] Electronically authenticated by: [id number] Y Date: 07/19/2025 20:21
--- NOTE | 2025-07-19 19:43 | ED_ITS ---
HPI HPI - General Adult General Chief complaint: Abdominal Pain Stated complaint: SIDE HURTS/ POSSIBLE KIDNEY STONES??? Time Seen by Provider: 07/19/25 19:27 Source: patient Mode of arrival: walk-in History of Present Illness HPI narrative: Patient is a 69-year-old female with a past medical history of COPD and multiple myeloma that presents to the ER with complaints of intermittent right flank pain since Thursday. She has been getting infusions for her multiple myeloma at the [facility] and [place] and was there today to get blood work drawn for her planned infusion tomorrow. She mentioned the pain she was having and they had recommended her being evaluated in the ER to get a UA and possible workup for recurrent kidney stone. She does have a history of kidney stones but has never needed surgery for them. She also recently had a UTI and a cystoscopy as she was passing blood clots. She does follow with urologist Dr. Valenzuela. She also had 2 liver ablations a few weeks ago at the end of June. She also has a cough and has not been home since 9am to take her COPD medications and feels she needs a breathing treatment. Related Data Previous Rx's ?Medication ?Instructions ?Recorded lidocaine 5 % topical patch 1 patch topical Q24H PRN r ib pain 04/02/25 (Lidoderm) #15 ea Allergies Allergy/AdvReac Type Severity Reaction Status Date / Time Unable to Assess Allergy Verified 04/02/25 13:29 Opioid HPI Opioid Management Most Recent Opioid Data: Last Pain Scale 8 04/02/25, 13:24 Risks, benefits, and alternatives of opioids discussed: Yes Prescription drug monitoring program results: PDMP reviewed and no issues identified Review of Systems ROS Status of ROS 10 or more systems reviewed and unremark able except as noted in history and below PFSH PFS Medical History (Updated 07/19/25 @ 20:58 by AIDE Rios) COPD (chronic obstructive pulmonary disease) ?J44.9 - Chronic obstructive pulmonary disease, unspecified (ICD-10) Multiple myeloma ?C90.00 - Multiple myeloma not having achieved remission (ICD-10) Social History Little interest or pleasure in doing things: not at all Feeling down, depressed, or hopeless: not at all Exam Narrative Exam Narrative: General: No distress, appears older than stated age Skin: Warm, dry, no pallor. No rash. Head: Normocephalic, atraumatic. Neck: Supple, non-tender. Eye: Pupils are equal, round and EOMI. No scleral icterus. Ears, Nose, Mouth, and Throat: No nasal mucosal hypertrophy. Oral mucosa is moist, no posterior oropharynx erythema, uvula is mid-line Cardiovascular: Regular Rate and Rhythm without murmur, gallop or rub. Respiratory: No accessory muscle use or respiratory distress. Cough on exam. Lungs are clear to auscultation, no wheezing, rales or rhonchi Chest Wall: no tenderness Back: No midline thoracic or lumbar vertebral tenderness. Musculoskeletal: Full ROM of all extremities, no calf or popliteal tenderness GI: Abdomen is soft, non-distended, non tender to palpation. No masses appreciated. No rebound, guarding, or rigidity noted. Right CVA tenderness. Neurological: A&O x4. No cranial nerve dysfunction observed. No truncal ataxia. Moves all extremities. Sensation intact. Psychiatric: Cooperative and interactive. Normal mood and affect. Constitutional Vital Signs, click to edit/add: Last Vital Signs Temp 99.0 F 07/19/25 17:15 Pulse 94 H 07/19/25 20:19 Resp 18 07/19/25 20:19 BP 104/68 07/19/25 17:15 Pulse Ox 99 07/19/25 20:19 O2 Del Method Room Air 07/19/25 20:19 Course Vital Signs Vital signs: Vital Signs Temperature 99.0 F 07/19/25 17:15 Pulse Rate 88 07/19/25 17:15 Respiratory Rate 16 07/19/25 17:15 Blood Pressure 104/68 07/19/25 17:15 Pulse Oximetry 97 07/19/25 17:15 Oxygen Delivery Method Room Air 07/19/25 17:15 Temperature 99.0 F 07/19/25 17:15 Pulse Rate 94 H 07/19/25 20:19 Respiratory Rate 18 07/19/25 20:19 Blood Pressure 104/68 07/19/25 17:15 Pulse Oximetry 99 07/19/25 20:19 Oxygen Delivery Method Room Air 07/19/25 20:19 Medical Decision Making MDM Narrative Medical decision making narrative: This patient is a 69 year old female with COPD and Multiple Myeloma that presents with Right Flank pain intermittently since Thursday. She is undergoing infusions at the [facility] and today they recommended ER evalaution to clear her to get her infusion tomorrow. She recently, in the past few months, has had a UTI and passed blood clots in her urine, evaluated with Cystoscopy by Dr Valenzuela that was inconclusive per patient. A few weeks ago she had liver ablations done. She denies abdominal pain. Her R back/ flank pain does somewhat radiate around the flank though. On arrival her vitals are stable, her O2 SATs are in the 90s on RA, and she requests something for pain and a breathing treatment as she is coughing. She states she hasn't been home all day to take her pain medication or COPD meds.She [place] went [place] [facility] [place] and waited 5 hours until she ended up leaving and came here. Given her oncologic history and current symptoms, workup was initiated to assess for possible obstructive uropathy, infection, or disease related renal involvement. IV placed, 0.5mg IV Dilaudid given. Duo-Neb ordered. CT Ab/ Pel ordered and CBC, BMP, LDH, Uric Acid, and UA ordered. Vitals stable on arrival. Labs: CBC: WBC 2 leukopenia, likely chemotherapy related, no left shift Hgb 10.9 anemia, possibly chronic disease and/ or treatment related Cr: 1.16, near baseline, 1L NS IVF given BUN normal Uric acid: 7.6 elevated, may relate to tumor burden or turnover LDH: 264 mildly elevated, nonspecific UA not suggestive of active UTI CT Ab/Pelvis: No bowel obstruction or obstructive uropathy. There is a large amount of stool within the colon and rectum consistent with constipation (Patient does take Morphine at home for pain control) There is hepatic cirrhosis with venous varices and a small amount of intra-abdominal ascites within a ventral wall hernia. Results discussed and printed and given to patient. Right flank pain is possibly due to colonic distention from constipation. No stone noted. Pain is more controlled after the dose of Dilaudid on re- evaluation. Patient reports ease of chest tightness with coughing after the Duo- Neb. Bowel regimen, Miralax, bisacodyl, or magnesium citrate recommended as patient on narcotic at home. Increase oral fluid intake and dietary fiber if tolerated. No antibiotics indicated after review of labs and patient clinically. Patient educated on symptoms of worsening bowel symptoms such as severe abdominal pain, nausea, vomiting, inability to pass stool/gas. Patient voiced understanding. Patient discharge with plan for close follow up with her Oncologist and PCP. Differential Diagnosis Differential Diagnosis: Kidney stone, Constipation Lab Data Labs: Lab Results 07/19/25 07/19/25 Range/Units 18:10 19:57 WBC 2.0 L (4.0-11.0) 10^3/uL RBC 3.31 L (4.20-5.40) 10^6/uL Hgb 10.9 L (12.0-16.0) g/dL Hct 32.1 L (36.0-48.0) % MCV 97.0 (81.0-99.0) fL MCH 32.9 (26.7-34.0) pg MCHC 34.0 (29.9-35.2) g/dL RDW 14.1 (11.0-15.0) % Plt Count 51 L (150-450) 10^3/uL MPV 11.4 (9.5-13.5) fL Seg Neuts % (Manual) 30.0 L (43.0-75.0) Lymphocytes % (Manual) 32.0 (20.5-60.0) % Monocytes % (Manual) 14.0 H (1.7-12.0) % Eosinophils % (Manual) 24.0 H (0.9-7.0) % Basophils % (Manual) 0.0 L (0.2-2.0) % Neutrophils # (Manual) 0.60 L (1.4-6.5) 10^3/uL Lymphocytes # (Manual) 0.64 L (1.20-3.80) 10^3/uL Monocytes # (Manual) 0.28 L (0.30-0.80) 10^3/uL Eosinophils # (Manual) 0.48 (0.00-0.70) 10^3/uL Basophils # (Manual) 0.00 (0.00-0.10) 10^3/uL Sodium 140 (136-145) mmol/L Potassium 4.0 (3.5-5.1) mmol/L Chloride 107 (98-107) mmol/L Carbon Dioxide 25.0 (21.0-32.0) mmol/L Anion Gap 12.0 BUN 17.0 (7.0-18.0) mg/dL Creatinine 1.16 H (0.55-1.02) mg/dL Est GFR ( Amer) 56 L (>=60 mL/min/1.73m^2) Est GFR (Non-Af Amer) 47 L (>=60 mL/min/1.73m^2) BUN/Creatinine Ratio 14.7 Glucose 155 H (74-106) mg/dL Uric Acid 7.6 H (2.6-6.0) mg/dL Calcium 8.3 L (8.5-10.1) mg/dL Total Bilirubin 1.3 H (0.2-1.0) mg/dL AST 27 (15-37) U/L ALT 23 (14-59) U/L Alkaline Phosphatase 125 H (46-116) U/L Lactate Dehydrogenase 264 H (81-234) U/L Total Protein 5.6 L (6.4-8.2) g/dL Albumin 3.0 L (3.4-5.0) g/dL Globulin 2.6 g/dL Albumin/Globulin Ratio 1.2 Urine Color Lt. yellow (YELLOW) Urine Clarity Clear (CLEAR) Urine pH 7.0 (5.0-9.0) Ur Specific [place] 1.010 (1.005-1.025) Urine Protein Negative (NEG/TRACE) mg/dL Urine Glucose (UA) Negative (NEGATIVE) mg/dL Urine Ketones Negative (NEGATIVE) mg/dL Urine Occult Blood Negative (NEGATIVE) Urine Nitrite Negative (NEGATIVE) Urine Bilirubin Negative (NEGATIVE) Urine Urobilinogen 2.0 A (0.2-1.0) EU/dL Ur Leukocyte Esterase Negative (NEGATIVE) Urine RBC None seen (0-2) #/HPF Urine WBC 0-2 A (NONE SEEN) #/HPF Ur Squamous Epith Cells Few A (NONE/RARE) #/LPF Ur Transition Epith Cell Rare A (NONE SEEN) #/LPF Urine Crystals None seen (None Seen) #/HPF Urine Bacteria Trace A (NONE SEEN) #/HPF Urine Casts None seen (NONE SEEN) #/LPF Urine Mucus Trace A (NONE SEEN) Ur Culture Indicated? No Discharge Plan Discharge Chief Complaint: Abdominal Pain Clinical Impression: Constipation, Acute flank pain Patient Disposition: Home, Self-Care Time of Disposition Decision: 20:56 Condition: Good Mode of Transportation: Private Vehicle Prescriptions / Home Meds: No Action lidocaine [Lidoderm] 5 % adhesive patch,medicated 1 patch topical Q24H PRN (Reason: rib pain) Qty: 15 0RF Rx Instructions: leave on most painful area for up to 12 hrs Print Language: Malaysian Instructions: Constipation (DC) Additional Instructions: No kidney stone was found on your CT scan today. Findings include: There is a large amount of stool within the colon and rectum consistent with constipation. There is hepatic cirrhosis with venous varices and a small amount of intra-abdominal ascites within a ventral wall hernia. Return to the ER immediately if you develop: - Severe abdominal pain or bloating. - Your inability to keep fluids down. - No bowel movement and no passage of gas. - Bleeding or black/tarry stools. - Chills, or weakness. Also if you develop any other new or worsening symptoms you can return to the emergency department for evaluation. Follow up with your primary care provider within 1 week to reassess. Referrals: Power Swain DO [Primary Care Provider] - 1 week Discharge Date/Time: 07/19/25 21:08
[2025-07-19] MEDS: 0.9 % SODIUM CHLORIDE 1,000 ML 1000 ML IV (20:07)
[2025-07-19] MEDS: HYDROMORPHONE HCL 0.5 MG/0.5 ML SYRINGE IV (20:08)
[2025-07-19 20:11] LABS: Hematocrit 32.1 % (36.0-48.0); Hemoglobin 10.9 g/dL (12.0-16.0); Mean Corpuscular HGB Conc 34.0 g/dL (29.9-35.2); Mean Corpuscular Hemoglobin 32.9 pg (26.7-34.0); Mean Corpuscular Volume 97.0 fL (81.0-99.0); Platelet Count 51 10^3/uL (150-450); Red Blood Count 3.31 10^6/uL (4.20-5.40); White Blood Count 2.0 10^3/uL (4.0-11.0)
[2025-07-19] MEDS: IPRATROPIUM/ALBUTEROL SULFATE 3 ML AMPUL.NEB IH (20:18)
[2025-07-19 20:19] VITALS: PULSE 94; O2SAT 99
[2025-07-19 20:37] LABS: Alanine Aminotransferase 23 U/L (14-59); Albumin Globulin Ratio 1.2; Albumin Level 3.0 g/dL (3.4-5.0); Alkaline Phosphatase 125 U/L (46-116); Anion Gap 12.0; Aspartate Amino Transferase 27 U/L (15-37); Blood Urea Nitrogen 17.0 mg/dL (7.0-18.0); Calcium 8.3 mg/dL (8.5-10.1); Carbon Dioxide 25.0 mmol/L (21.0-32.0); Chloride 107 mmol/L (98-107); Estimated GFR (African America 56 (>=60 mL/min/1.73m^2); Estimated GFR (Non-African Ame 47 (>=60 mL/min/1.73m^2); Globulin 2.6 g/dL; Glucose 155 mg/dL (74-106); Potassium 4.0 mmol/L (3.5-5.1); Sodium 140 mmol/L (136-145); Total Protein 5.6 g/dL (6.4-8.2); Uric Acid 7.6 mg/dL (2.6-6.0)
[2025-07-19 20:42] LABS: Lymphocytes Absolute Manual 0.64 10^3/uL (1.20-3.80); Lymphocytes Percent Manual 32.0 % (20.5-60.0); Segmented Neut Absolute Manual 0.60 10^3/uL (1.4-6.5); Segmented Neutrophils % Manual 30.0 (43.0-75.0)
[2025-07-19 20:43] LABS: Basophils Abs Manual 0.00 10^3/uL (0.00-0.10); Basophils Percent Manual 0.0 % (0.2-2.0); Eosinophils Absolute Manual 0.48 10^3/uL (0.00-0.70); Eosinophils Percent Manual 24.0 % (0.9-7.0); Monocytes Absolute Manual 0.28 10^3/uL (0.30-0.80); Monocytes Percent Manual 14.0 % (1.7-12.0)
== END 2025-07-19 21:08 | disposition home or self-care (01) ==
PROVIDERS: Emergency Medicine; Physician Assistant; Emergency Provider Student in an Organized Health Care Education/Training Program; PCP Student in an Organized Health Care Education/Training Program
DX: K59.00 Constipation, unspecified (principal); R10.9 Unspecified abdominal pain; J44.9 Chronic obstructive pulmonary disease, unspecified; C90.00 Multiple myeloma not having achieved remission; Z87.442 Personal history of urinary calculi; Z87.440 Personal history of urinary (tract) infections
CPT/HCPCS: 36415; 74176; 80053; 81001; 83615; 84550; 85007; 85027; 94640; 96374; 99285; J1171

== ENCOUNTER 2025-08-27 17:58 | Emergency (ER) | payer MEDICARE, MEDICAID, SELFPAY ==
--- OUTSIDE RECORDS SUMMARY | 2025-08-16 20:17 | XMS_ITS | Continuity of Care Document ---
Author Organization [facility] Address [address] [place] [address] Phone Care Team Providers Care [employer] Instructor Name Role Phone Vitaliy Thomson MD Primary Care Provider Katie Holder APRN Attending Provider Mariza Sanchez DO Attending Provider Power Swain DO Primary Care Provider Fabiola Marinelli MD Attending Provider [phone] Marlon Alba DO Emergency Provider Fabiola Marinelli MD Referring Provider Care Teams Patient Care Team Team Status: Active Member Role Status Dates Power Swain DO Primary Care Provider Active Visit Care Team Team Status: Inactive Member Role Status Dates Vitaliy Thomson MD Primary Care Provider Active S tart: May 26, 2025 End: May 26, 2025Rene Carlson ProviderActiveStart: May 26, 2025 End: May 26, 2025 Visit Care Team Team Status: Inactive Member Role Status Dates Vitaliy Thomson MD Primary Care Provider Active S tart: May 29, 2025 End: May 29duran Sanchez DOAttstanley ProviderActiveStart: May 29, 2025 End: May 29, 2025 Visit Care Team Team Status: Inactive Member Role Status Dates Power Swain DO Primary Care Provider Active Start: May 30, 2025 End: May 30atherine L Ly , DOAttending ProviderActiveStart: May 30, 2025 End: May 30, 2025 Visit Care Team Team Status: Inactive Member Role Status Dates Katie Holder APRN Attending Provider Active Start: June 15, 2025 End: June 15, 2025Dahoward Swain , DOPrimary Care ProviderActiveStart: June 15, 2025 End: June 15, 2025 Visit Care Team Team Status: Inactive Member Role Status Jono Marinelli MD Attending Provider Active Start: June 15, 2025 End: June 15, 2025Dahoward Swain , DOPrimary Care ProviderActiveStart: June 15, 2025 End: June 15, 2025 Visit Care Team Team Status: Inactive Member Role Status Dates Power Swain DO Primary Care Provider Active Start: July 19, 2025 End: July 19, 2025Rene Carlson ProviderActiveStart: July 19, 2025 End: July 19, 2025 Visit Care Team Team Status: Inactive Member Role Status Dates Power Swain DO Primary Care Provider Active Start: July 19, 2025 End: July 19, 2025Vonnie Ocampo ProviderActiveStart: July 19, 2025 End: July 19, 2025 Visit Care Team Team Status: Inactive Member Role Status Jono Swain DO Primary Care Provider Active Start: July 27, 2025 End: July 27Adina Tsai ProviderActiveStart: July 27, 2025 End: July 27, 2025 Visit Care Team Team Status: Inactive Member Role Status Jono Swain DO Primary Care Provider Active Start: August 09, 2025 End: August 09, 2025Rene Carlson ProviderActiveStart: August 09, 2025 End: August 09, 2025 Patient Care Team Team Status: Inactive Member Role Status Jono Swain DO Primary Care Provider Active Start: August 16, 2025 End: August 16, 2025Rene Carlson ProviderActiveStart: August 16, 2025 End: August 16, 2025 Visit Care Team Team Status: Active Member Role Status Dates Fabiola Marinelli MD Attending Provider Active Start: August 16, 2025 Fabiola Marinelli , MDReferring ProviderActiveStart: August 16, 2025 Judah Ferrara Care ProviderActiveStart: August 16, 2025 Chief Complaint and Reason for Visit Chief Complaint Admit Date 6 month follow up May 29, 2025 1:58 pm r31.9 May 30, 2025 8:32 am Follow Up 2 Months June 15, 2025 9: 29am rt side pain, vomiting July 19, 2 025 11:40am 7 week f/u July 27, 2025 10:25am 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, 2025 7 :59am Reason for Visit Admit Date Hepatocellular carcinoma May 29, 2025 1:58pm 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) May 29, 2025 1:58pm Cancer associated pain June 15, 2025 8:12am Hepatocellular carcinoma June 15 8:12am Multiple myeloma June 15, 2025 8: 12am Nausea June 15, 2025 8: 12am Bilateral leg pain June 15, 2025 9: 29am Hemorrhoids, complicated June 15 9:29am Hepatocellular carcinoma June 15 9:29am Iron deficiency anemia June 15, 2025 9:29am Bone marrow hypocellularity June 15, 2025 9:29am Cancer-related pain June 15, 2025 9: 29am Encounter for antineoplastic immunothera py June 15, 2025 9:29am Encounter for coordination of complex ca re June 15, 2025 9:29am 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 June 15, 2025 9:29am 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) June 15, 2025 9:29am Multiple myeloma June 15, 2025 9: 29am 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 Au 2024 9:29am Cancer associated pain July 19, 2 025 9:55am Hepatocellular carcinoma July 19, 2025 9:55am Nausea July 19, 2025 9:55am Hemorrhoids, complicated July 27, 2025 10:25am Hepatocellular carcinoma July 27, 2025 10:25am Iron deficiency anemia July 27 10:25am Bone marrow hypocellularity July 272024 10:25am Cancer-related pain July 27, 2025 10:25am Encounter for antineoplastic immunothera py July 27, 2025 10:25am Encounter for coordination of complex ca re July 27, 2025 10:25am 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 July 27, 2025 10:25am 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) July 27, 2025 10:25am Multiple myeloma July 27, 2025 10:25am 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 Se pt2024 10:25am Cancer associated pain August 16 7:42am Hepatocellular carcinoma August 16 7:42am Multiple myeloma August 16, 2025 7 :42am Nausea August 16, 2025 7 :42am Acute right hip pain August 16, 2025 7:59am Hematuria August 16, 2025 7 :59am Acute thoracic back pain August 16 025 7:59am Bone marrow hypocellularity August 7:59am Cancer-related pain August 16, 2025 7 :59am Chemotherapy-induced neutropenia August 16, 2025 7:59am Chronic copper deficiency August 16, 2025 7:59am Degenerative cervical spinal stenosis Oc er 2024 7:59am Encounter for antineoplastic immunothera py August 16, 2025 7:59am Encounter for chemotherapy management Oc 2024 7:59am Encounter for coordination of complex ca re August 16, 2025 7:59am History of 2019 novel coronavirus diseas e (COVID-19) August 16, 2025 7:59am 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 August 16, 2025 7:59am Iron deficiency August 16, 2025 7 :59am 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) August 16, 2025 7:59am Multiple myeloma August 16, 2025 7 :59am Neutropenia, unspecified August 16 025 7:59am Obesity August 16, 2025 7 :59am 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 Oc tober 2024 7:59am Frontal sinusitis August 16, 2025 7 :59am Diabetes mellitus August 16, 2025 7 :59am Fibromyalgia August 16, 2025 7 :59am Smoldering multiple myeloma (SMM) Octobe r 2024 7:59am Allergies, Adverse Reactions, Alerts Allergen Type Severity Reaction Last Updated Verified Status Comments diclofenac Allergy Unknown Hives July 12:11pm Yes Active doxycyclineAllergyUnknownHivesSeptember 2024 12:11pmYesActivemoxifloxacin AllergyUnknownHivesSeptember 2024 12:11pmYesActiveerythromycin baseAllergy UnknownHivesSeptember 2024 12:11pmYesActivePt has tolerated azithromycin without issue.latexAllergyUnknownUnknown ReactionSeptember 2024 12:11pmYes ActiveQuinolonesAllergyUnknownUnknown ReactionSeptember 2024 12:11pmYes ActivetetracyclineAllergyUnknownUnknown ReactionSeptember 2024 12:11pmYes Active Social History Smoking Status Status Start Date End Date Date of Observa tion Never smoked tobacco (finding) August 16, 2025 7:49am Observation Status Observation Response Date of Response Legal Sex [facility] ([facility]) [facility] Family [facility] Relationship Condition Age at Onset Recorded Date/T levar brother Malignant neoplasm Unknown HypertensionUnknownChronic obstructive pulmonary diseaseUnknownAlcoholismUnknown fatherDeceasedUnknownMalignant neoplasmUnknownAsthmaUnknownPulmonary emphysema UnknownHypertensionUnknownAlcoholismUnknownfamily memberDeceasedUnknown grandparentDiabetes mellitusUnknownmotherMalignant neoplasmUnknownHeart disease UnknownHypertensionUnknownDeceasedUnknownsisterMalignant neoplasmUnknown Problems Active Problems Medical Problem Onset Date Status Comments History of tobacco abuse Unknown Active 1pp d x 20 years, quit 2002 Abnormal liver ultrasound Unknown Active Acute thoracic back painUnknownActiveUTI (urinary tract infection)UnknownActive UTI (urinary tract infection)UnknownActive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UnknownActiveHistory of 2019 novel coronavirus disease (COVID-19)Unknown ActiveHistory of COVID-89OhqrqbsGjmthu26/2023Refractory chronic coughUnknown ActiveImmunosuppressionUnknownActiveLiver lesionUnknownActiveAcute right hip painUnknownActiveFamily history of colon cancerUnknownActiveHemorrhoids, complicatedUnknownActive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UnknownActive Spontaneous bacterial peritonitisUnknownActiveMaxillary sinusitis, chronic UnknownActiveSinus CT 01/25/2024 - Bilateral moderate sinusitis, mild ethmoid sinusitisEpistaxisUnknownActiveRhinovirus infectionUnknownActiveHematuriaUnknown ActiveDM2 (diabetes mellitus, type 2)UnknownActiveHepatocellular carcinoma UnknownActiveBacteremiaUnknownActiveClaustrophobiaUnknownActiveSeptic shock UnknownActiveEncounter for coordination of complex careUnknownActiveEncounter for chemotherapy managementUnknownActiveNeutropenia, unspecifiedUnknownActive 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)UnknownActive Encounter for antineoplastic immunotherapyUnknownActivePancytopeniaUnknownActive Cancer associated painUnknownActiveCancer-related painUnknownActiveAbnormal CXR (chest x-ray)UnknownActiveBone marrow hypocellularityUnknownActive ThrombocytopeniaUnknownActiveUreterolithiasisUnknownActiveHypogammaglobulinemia UnknownActiveAdjustment disorder with mixed anxiety and depressed moodUnknown ActiveBilateral leg painUnknownActiveIron deficiency anemiaUnknownActiveAcute metabolic encephalopathyUnknownActiveBMI 30.0-30.9,adultUnknownActiveAneurysm of ascending aortaUnknownActiveDegenerative cervical spinal stenosisUnknownActive Chronic pain syndromeUnknownActiveParoxysmal atrial fibrillationUnknownActive COPD (chronic obstructive pulmonary disease)UnknownActivePFT: 02/24/2024- FEV1/FVC: 70%-FEV1: 87%-FVC: 95%-XXS37-06%: 60% -Bronchodilator response: None - RV: 118%-T%-DLCO: 71%-Flow-volume loop: Mild obstructionBlood in stool UnknownActiveSmoldering myelomaUnknownActiveGERD (gastroesophageal reflux disease)UnknownActiveChemotherapy-induced neutropeniaUnknownActiveChest pain UnknownActiveHemorrhoidsUnknownActiveNauseaUnknownActiveNauseaUnknownActive Multiple myelomaUnknownActiveMultiple myelomaUnknownActiveObesityUnknownActive Iron deficiencyUnknownActiveChronic copper deficiencyUnknownActiveHypomagnesemia UnknownActiveInactive/Resolved Problems Medical Problem Onset Date Status Comments Acute alteration in mental status Unknown Resolve d ZOYHJ-16DkgozfjZyophujiGVGTU-39FavpdjzEnszcqstNlfrjxgi mellitusUnknownResolved CoughUnknownResolvedFibromyalgiaUnknownResolvedFrontal sinusitisUnknownResolved Smoldering multiple myeloma (SMM)UnknownResolved Medications Medication Status Dose Units Route Directions Qty Days St art Date Stop Date End Date Instructions Adherence Oxycodone 10 mg tablet Discontinued 10 MG PO EVER Y 4-6 HOURS as needed for Pain December 31, 2023 2:43pmFebruary 2023 2:47pmOxycodone 10 mg tablet Zmqhuczdrfvk61XGOFUHBBG 4-6 HOURS as needed for Xeok35791Dpovhwtk 2023February 03, 2024 2:05pmOxycodone 10 mg jqdhkfHqkpqemkpzvw11FBEOOCCVO 4-6 HOURS as needed for Ywxj30097Cbrna 2023Ma2023 1:52pmPotassium Chloride 10 mEq capsule, extended releaseDiscontinued0.ROUTE.EHESRQK39Opzsb 2023 1:08pm July 29, 2024 1:55pmTAKE 1 CAPSULE BY MOUTH EVERY DAYOndansetron 8 mg tablet,cilbxmzfynlfyuEbiyxutpocxv2BNYPMzodk times daily as needed for Imvgoe88 February 11, 2024 9:26amJune 2023 6:01pmGabapentin 400 mg capsule Rwsutudngroa645MTQGYykhl times uopxx7810Vajjy 2023 10:48amJune 2023 1:17pmOxycodone 10 mg zteqxzHnnuwleuvisv41OPAUWQKUS 4-6 HOURS as needed for Pain 05378Dta 2023May 2023 2:26mxJdxrjzzhet-Qamjhuwd-Vhwrppvxxn (Breztri Aerosphere) 160-9-4.8 mcg/actuation HFA aerosol xpqvdogTokbjcrwllzr5EQB INHALATIONTwice daily10.730June 2023 10:59amJune 2023 6:02pmGabapentin 400 mg ofzzwznYhipvmeyggge322YAVNBjcxy tunip3607Qtsx 2023 9:43amAugust 2023 9:48amOxycodone 10 mg qmbrwoFzhlyexmbtod68WMJWXlyh times daily as needed for Ogrq80889Mmtj 2023July 2023 4:05pmOxycodone 10 mg tablet Praiubazfwop33EZTSXcot times daily as needed for Bboq13932Txxc , ugust 2023 9:48amOndansetron 8 mg tablet,gboxabnckgtjybGdgoaqpgajvs3PBQTIpenu 8 hours as needed for nausea and tvmbhacb82Izxskx 2023 10:39amDecember 2023 1:40pmSodium Chloride 0.9 % solution for xnsmvwgygdtbXwzkiofztfae5EM INHALATIONEvery 12 kpwwh53497Cmmsie 2023 12:00amAugust 2023 2:56pm Ldpzevulvb-Crsdbwvl-Repfwnexnt (Breztri Aerosphere) 160-9-4.8 mcg/actuation HFA aerosol xtoqbomDrevrc0CXKNRXZXXAJZHNzjwr daily10.August 2023 10:11am UnknownOxycodone 10 mg nqdecqEupepgcsilbj86UYABNTEIY 4-6 HOURS as needed for Sfik16282Dtdlcejko 2023October 2023 11:55amPotassium Chloride 10 mEq capsule, extended releaseDiscontinued0.ROUTE.NSPNSAM28Lbpjfgkbm 2023 1:55pmFebruary 2024 4:24pmTAKE 1 CAPSULE BY MOUTH EVERY DAYLorazepam (Ativan) 0.5 mg tabletDiscontinued0.5MGPOOnce as needed for claustrophobia from DYJ88Hxobpgjd 2023 1:00amSeptember 2024 10:43amTake 1 tablet 30 minutes before scheduled MRI time; take second tablet only if needed for claustrophobia/anxiety related to MRIOxycodone 10 mg soweaaTymbmhprvtmg13XUXI EVERY 4-6 HOURS as needed for Xjsk58983Jmbmtprj ecember 2023 12:20pmOndansetron 8 mg tablet,bvjyunkuuboslcYyybvgojqbzw2UAXUZdldp 8 hours as needed for nausea and ubxsiwri78Qfyrsizg 2023 1:39pmMarch 2024 10:21amOxycodone 10 mg zojyyrBcfqbylxhnxk27DHTAPUWHY 4-6 HOURS as needed for Hvsg02339Jakrhbu 2024January 2024 2:20pmOxycodone 10 mg tablet Gvebpountnsq80DLRKFYQOH 4-6 HOURS as needed for Vcyh71857Nzsmoyw 2024December 23, 2024 1:06pmPotassium Chloride 10 mEq capsule, extended release Discontinued0.ROUTE.BMHJCLA86Dybgspui 2024 4:24pmSeptember 2024 11:55amTAKE 1 CAPSULE BY MOUTH EVERY DAYSulfamethoxazole-Trimethoprim 800-160 mg hyytzfFdytzb0IIFMRfpvxx Thursday, Thursday, and Wnheev8968Amwrkdtr 2024 10:54amUnknownOxycodone 10 mg gihbltHsbobvbvyxkp40LSBFTORAO 4-6 HOURS as needed for Vqav49105Spsig pril 2024 1:53pmMagnesium Oxide 400 mg (241.3 mg magnesium) tabletDiscontinued0.ROUTE.VMXRTPT85Pulbf 2024 3:13pm July 28, 2025 10:03amTAKE 1 TABLET BY MOUTH EVERY DAYOndansetron 8 mg tablet,bwknxdtksabndcIenbrjtmbhvk0VTKNUemcn 8 hours as needed for nausea and twofduzx94Drbpk 2024 10:20amApril 2024 3:06pmOxycodone 10 mg tablet Bydimklabkef81WGMAVVLHC 4-6 HOURS as needed for Tvsf97261Sowfd 2024May 2024 10:34amOxycodone 10 mg ggteguIkheyccisfmu36LRGOMMWFW 4-6 HOURS as needed for Trix03974Fqu 2024June 2024 9:53amOndansetron 8 mg tablet,funhbthtyxmpwnWdosysemmdwh0KHBKQgxqd 8 hours as needed for nausea and jxfblnly40Hhvg 2024 11:11amJuly 2024 10:53amDiazepam 5 mg tablet Jnrxypdnusls9VTYS.COMPLEX as needed for hmalfco35Hrma 2024 2:14pmJune 2024 8:45am5 mg orally 1 dose 30 minutes prior to PET scan, may repeat once 5 minutes before PRN;Pantoprazole 40 mg tablet,delayed release (DR/EC) Active0.ROUTE.LUZHBHC772Mgwi 2024 10:40amTAKE 1 TABLET BY MOUTH TWICE A DAYUnknownOndansetron 8 mg tablet,jygtypcvwnlbcrIycuejyklzrb7IOYQUmjhj 8 hours as needed for nausea and dejstspr12Nzjv 2024 10:52amAugust 2024 12:51pmCefpodoxime 100 mg pgdnkfJxpgdesnvcly381CWFRCflbs vkcoa96Zuhn 2024 12:00amAugust 2024 9:37ammust administer with a meal/foodFosfomycin Tromethamine 3 gram iprelnHdgrbrrbsmwv4UWCGZIOV.KGKGLUB4Vpbogz2024 12:00am June 15, 2025 9:37am1 packet orally Q5 days;Morphine 15 mg tablet extended fshjjnnXkplvxnikjzk37JIUDOoknz 12 buhcg3350Cxvuyx 2024September 2024 10:29amOxycodone 10 mg nakggdUsutlqmmorhf52KPAZLnqiz 4 hours as needed for Pain 60678Vhogoi 2024 11:14amOxycodone 10 mg tablet Zaeemkskdiso51XDBZWbatm 4 hours as needed for Ayvq56814Dxnyui 2024July 19, 2025 10:29amOndansetron 8 mg tablet,disintegratingDiscontinued8 MGPOEvery 8 hours as needed for nausea and kxbhfsdy31Pbmzqi 2024 12:51pm August 16, 2025 10:07amPotassium Chloride 10 mEq capsule, extended release Active0.ROUTE.ESRTIXN96Favbtfhmv2024 11:55amTAKE 1 CAPSULE BY MOUTH EVERY DAYUnknownMagnesium Oxide 400 mg (241.3 mg magnesium) tabletActive0.ROUTE .PPZFYTN56Aawwblaye2024 10:03amTAKE 1 TABLET BY MOUTH EVERY DAYUnknown Prochlorperazine Maleate 10 mg tkxvslEdfxapaxxzqj17BJUHZpacy daily as needed for nausea and qphttpwy78Vrtwkvfrr 26th, 2025 12:00amOctober 2024 11:39am Prochlorperazine Maleate 10 mg gizljoRmeebs89ZYGHYqorq daily as needed for nausea and zqxvdjia2764Ipzgnog 2024 11:38amUnknownCarvedilol 12.5 mg tablet Ibnqcf25.5MGPOTwice dailyJanuary 2017 1:00amComplies with drug therapy Ferrous Sulfate 325 mg (65 mg iron) coqfchIifqkisjcthn0ZHTKETazyq dailyJanuary 2017 1:00amJanuary 2017 3:03pmRosuvastatin 5 mg tabletDiscontinued1 TABPODailyJanuary 2017 1:00amJune 2018 2:01pmDuloxetine 60 mg capsule,delayed release(DR/EC)Ejfhkt19PSDZRqakyUejblyd 2017 1:00amComplies with drug therapyInsulin Detemir U-100 100 unit/mL (3 mL) insulin pen Ughsqrgblcrj18ITLFXEORLLIUhaux as needed for HyperglycemiaJanuary 2017 1:00amNovember 2022 9:37amInject 22 unites under the skin once daily only if blood sugar is greater than 140Oxycodone 10 mg vdrrsfPachqhzbxbar50NMAPDbsiy daily as needed for PainJanuary 2017 1:00amFebruary 2023 2:44pm Fluticasone Propion-Salmeterol (Advair Diskus) 250-50 mcg/dose Blister With PkpnrcVwaldwoeycke2DBEKLJMJEHZGGY62W as needed for Shortness Of BreathJanuary 2017 1:00amMarch 2022 8:28amAlbuterol Sulfate 90 mcg/actuation Hfa Aerosol WpjbvylUpdqjarteoig1CNTLZWXWOBNHEIN3T as needed for Shortness Of Breath November 24, 2017 1:00amAugust 2023 9:28amOmeprazole Magnesium (Prilosec Otc) 20 mg Tablet,Delayed Release (Dr/Ec)Ebytghgptgvx60MMKWOvvhtTubcdrk 2017 1:00amMay 2023 2:01pmAlbuterol Sulfate (Proair Hfa) 90 mcg/actuation Hfa Aerosol AbnenweKessyhnxbzrn3ZKOSTRIFYGNEARAPAAI 4-6 HOURS as needed for Shortness Of Breath Or WheezingJanuary 2017 1:00amJune 2018 11:58am Cyclobenzaprine 10 mg jqxyetLmuglbxzwldw89MUSSXgmgt times daily as needed for Muscle SpasmFebruary 2018 11:50amJune 2018 2:01pmMetformin 500 mg Tablet Extended Release 24 RbGaebmscetxjt520FRNAVsdya dailyMay 2019 12:00am April 19, 2024 1:14pmOndansetron Hcl (Zofran) 8 mg DqnlumGmrogtlpsawe9YBJVDgdnq times daily as needed for NauseaApre 2019 12:00amJune 2019 1:45pm Ondansetron Hcl (Zofran) 8 mg WzpxzkRkrwdhtrctcd4RHQJWgjlg times daily as needed for Uglbjx77Kwhv 2019 1:45pmMarch 2022 8:36amDexamethasone 4 mg LvusjmDvoowxjlpcql61IRFAGyya4737Czek 1st, 2020 12:00amJune 2019 2:11pm Acyclovir 400 mg NrsfobKvpxzoeahbig914OCLZUwion hibiu82228Vgpa 1st, 2020 12:00am July 23, 2020 9:50amDexamethasone 4 mg JhzzsiPhsuyvcjzlcj86ELWEUavr1637 April 02, 2020 2:11pmJanuary 2020 12:39pmInsulin Nph Isoph U-100 Human (Novolin N Nph U-100 Insulin) 100 unit/mL PsfysfsirnFfttrayrmgst85CINVXJXJMONu DirectedJuly 2019 12:00amMarch 2022 8:34amTake 15-20 units ater chemo on chemo daysDiazepam (Diazepam Intensol) 5 mg/mL ConcentrateDiscontinued0 .ROUTE.XZIXXXZ746Vzvz 2019 12:00amJuly 2019 2:33pm5 mg orally 30 min prior to MRI, may repeat one dose 5 min prior to MRI if needed. 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 Must have a driverDiazepam (Valium) 5 mg SpotlsUvnkdugovmxt4QJMUDs Phwjrcjv85Oqah 2019 2:40pmMay 2020 4:08pmtake 30 minutes before MRI, may repeat X1 five minutes before MRI if needed. Must have a driverNystatin 100,000 unit/mL SuspensionDiscontinued 725732PBJKXMHJDNDxzif35550Rcngce 2019 12:00amJanuary 2022 11:47am administer 1/2 of dose in each side of the mouthAcyclovir 400 mg Tablet Jknyvfvnpgpt274ONKXYulqp zbmkm60069EjnvjwsxqJuly 23, 2020 9:50amMarch 2020 9:22amPotassium Chloride 10 mEq Tablet Extended ZonbrtmJkngclgyrene48SNIZDXljah 2019 12:00amAugust 29, 2020 10:39amPotassium Chloride 10 mEq Capsule, Extended LulxlzyFtqpyjbhkdnb44MCTOJGpnun58Frudjdh 28th, 2020 12:00am December 17, 2020 9:21amSemaglutide (Ozempic) 0.25 mg or 0.5 mg(2 mg/1.5 mL) Pen VwgzxzjwPabschacfcpn8BXHEFUIXuimxe 2019 1:00amJune 2023 1:13pmCyanocobalamin (Vitamin B-12) 5,000 mcg OewjvlzQluxfcuzozow2469EJKRM every weekDece2019 1:00amMarch 2022 8:24amAzithromycin (Zithromax Z-Satya) 250 mg YgqvfdOawrmjrtzsuh149PLAHYjjdiRkiridn 2020 1:00am January 22, 2022 8:38amDexamethasone 4 mg ZgjwvkJpiceacezhwq35JAWHHolp6161 November 29, 2020 12:39pmFebruary 2021 1:13pmPotassium Chloride 10 mEq Capsule, Extended ArkatnvXvakemrslias85GIYUOTsxba75Baqohmtk 2020 9:20amMay 2020 8:14amAcyclovir 400 mg GegpclPudrmdttlgom847XLJFRlhef payep21376Kchpt 2020 9:22amSeptember 2020 9:45amPotassium Chloride 10 mEq Capsule, Extended HkvadbpKolqbzrstvmw15UQMUAYsspf91Hpb 2020 8:14amAugust 2020 8:07amVitamin M06-Mnggm Acid 0.5-1 mg HdietmQfascnhctlvw9NJCPYNhmbrSjs 2020 12:00amJune 2023 6:01pmDiazepam (Valium) 5 mg ObdagyXwrohnfftoez0AZUJ As Hmrkyitl76Rmh2020 4:08pmJune 2020 3:55pmtake 30 minutes before MRI, may repeat X1 five minutes before MRI if needed. Must have a driverDiazepam (Valium) 5 mg RlevqxBiwdpopyeken3IORFMa Mhityimo92Oaru 2020 3:55pm July 17, 2021 3:02pmtake 30 minutes before MRI, may repeat X1 five minutes before MRI if needed. Must have a driverPotassium Chloride 10 mEq Capsule, Extended AleraypRktmxlxbmeff08IUREDJmsin79Yomlqx 2020 8:07am August 30, 2021 12:20pmOndansetron 8 mg Tablet,EixzwjndkvzwbcFgqzdoupeymx2UY POQ8H as needed for Xaudws52Ymeikb 2020 10:53amDecember 2020 12:30pm Acyclovir 400 mg SsynlnSxmxaokatddr344RKECBhbvp hnpjd69213Fnrwbvkav 2020 9:45amFebruary 2021 1:12pmDiazepam (Valium) 5 mg EayacrYkqymkfandfl1PCPHAv Vbhdubdg94Xlzlwuxaf 2020 3:01pmMarch 2022 8:28amtake 30 minutes before MRI, may repeat X1 five minutes before MRI if needed. 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 Gabapentin 300 mg EodykxDrxwugkvitaj967YDCWPcaus times dailySept2020 12:00amMarch 2022 8:29amPotassium Chloride 10 mEq Capsule, Extended WclsjzbIzxdcqmeaeiw93NRWBWOugzq50Fmsikct 2020 12:20pmJanuary 2021 10:18amLenalidomide (Revlimid) 5 mg CapsuleDiscontinued0.ROUTE.DZFSXNP5086 August 30, 2021 12:00amNovember 2020 3:21pm5 mg orally daily for 21 days, 7 days off;swallow whole with glass of water; do not open, crush, chew , break, or dissolveLenalidomide (Revlimid) 5 mg CcubhumBdbbqcfvczyo7NTVQAingj05 August 30, 2021 12:00amNovember 2020 3:21pmTAKE ONE DAILY FOR 21 DAYS AND 7 DAYS OFF.ADULT FEMALE NOT OF REPRODUCTIVE POTENTIAL. AUTH#[id number] Lenalidomide (Revlimid) 5 mg HjbwgmcLmireljriets6IOCEGcawo91Wmmwpmmr 2020 3:21pmDecember 2020 3:27pmTAKE ONE DAILY FOR 21 DAYS AND 7 DAYS OFF.ADULT FEMALE NOT OF REPRODUCTIVE POTENTIAL. AUTH#[id number] (Revlimid) 5 mg DaziqerRtusbmpaofxt4WJSNZlxbs06Jrqzjhjl 2020 3:26pmJanuary 2021 10:48amTAKE ONE DAILY FOR 14 DAYS AND 14 DAYS OFF.ADULT FEMALE NOT OF REPRODUCTIVE POTENTIAL. AUTH#[id number] 8 mg Tablet,Disintegrating Azuerprdheis8VKZPH6J as needed for Dygucs23Rjbllrce 2020 12:30pmDecember 2020 12:32pmOndansetron 8 mg Tablet,QijbcjcbkveawiVfkjfahtmdgn9HUTMM3D as needed for Zfmbom89Mesymojh 2020 12:32pmAugust 2021 10:19am Lenalidomide (Revlimid) 5 mg NhovpkcFhbgnilmrgxn5GDMAAxreg22Dsmtyxa 2021 10:48amFebruary 2021 5:03pmTAKE ONE DAILY FOR 14 DAYS AND 14 DAYS OFF.ADULT FEMALE NOT OF REPRODUCTIVE POTENTIAL. AUTH#[id number] Chloride 10 mEq Capsule, Extended PxnyiwlZqvvedbbkufj33EBPACEvumj03Flbjbdi 2021 10:18amApril 2021 8:34amDexamethasone 4 mg UshngdTateqvabqalw36IOVLNtye12 90February 2021 1:13pmMay 2021 9:22amAcyclovir 400 mg Tablet Szptudadvczw915LWJGAsoay ukskd35013Qmvjywwv 2021 1:11pmNovember 2021 9:11amLenalidomide (Revlimid) 5 mg OfcwubhOynywdunkbyk9UZAXElgno38Jhfjkulz 2021 5:03pmApril 2021 8:21amTAKE ONE DAILY FOR 14 DAYS AND 14 DAYS OFF.ADULT FEMALE NOT OF REPRODUCTIVE POTENTIAL. AUTH#[id number] (Pomalyst) 3 mg BigzbvhZbinswwvyfwt1FWNNUmmdj84Iodfj 2021 12:00amApril 2021 4:03pmPomalidomide (Pomalyst) 3 mg ZjmhesiDnrwtuzwuikt1ZLLLYdgzt83 February 19, 2022 4:03pmMay 2021 9:06amtake 1 daily for 21 days of 28 day cycle.adult female not of reproductive potential AUTH#[id number] Chloride 10 mEq Capsule, Extended HjvpgwsZjfgwcuppcgx15NKPMINjvyn80Znjtz 2021 8:34amJuly 2021 8:10amPomalidomide (Pomalyst) 2 mg NpgdepzWrblyqlgwdsr2MA VAHnwyx3322Odo 2021 12:00amMay 2021 10:35amPomalidomide (Pomalyst) 2 mg JjxmnppDtpmlljgixan8HTTSAyozx1240Yft 2021 10:35amJune 2021 3:37pm TAKE 1 DAILY FOR 14 DAYS OF 28 DAY CYCLE.FEMALE NOT OF REPRODUCTIVE POTENTIAL AUTH#[id number] 4 mg LcrbtuVmwvqrqqlzbr70AHNLRgvf1064Yzd 2021 9:22amMarch 2022 8:27amLactulose 20 gram/30 mL DimfkiggEdkphkrcfwip20RNMO Twice daily as needed for Mxngjgbxvnuy651Lqzr 2021 11:43amDecember 2022 12:31pmPomalidomide (Pomalyst) 2 mg PipcfbwHcskpkapobjn0UOGLEzkgq0490Lupj 2021 3:37pmJune 2021 2:24pmTAKE 1 DAILY FOR 14 DAYS OF 28 DAY CYCLE.FEMALE NOT OF REPRODUCTIVE POTENTIAL AUTH#[id number] (Pomalyst) 2 mg KnwxzniSkldfibzbhtn8SRHDXjued2389Okjy 2021 2:24pmJuly 2021 4:14pm TAKE 1 DAILY FOR 14 DAYS OF 28 DAY CYCLE.FEMALE NOT OF REPRODUCTIVE POTENTIAL AUTH#[id number] (Pomalyst) 2 mg PmwszieVblczktndaiu7GCDTFlaaq8545Nbuc 2021 4:14pmAugust 2021 3:14pmTAKE 1 DAILY FOR 14 DAYS OF 28 DAY CYCLE.FEMALE NOT OF REPRODUCTIVE POTENTIAL AUTH#[id number] Chloride 10 mEq Capsule, Extended TsfsqzhJjfoexafdukm32ZKEUCRdaxd86Skbf 2021 8:10amOctober 2021 8:14amOndansetron 8 mg Tablet,HhlbudoclwmypiLifbruxdlwao6WDJBE9Q as needed for Hutwpa05Hnkvfz 2021 10:18amMarch 2022 8:36amPomalidomide (Pomalyst) 2 mg JznlwotUcqknwbczdql8PORNZknnk4863Vckvqo 2021 3:14pm October 15, 2022 11:29amTAKE 1 DAILY FOR 14 DAYS OF 28 DAY CYCLE.FEMALE NOT OF REPRODUCTIVE POTENTIAL AUTH#[id number] 4 mg RnpuksZgijuhfrxtov85DC FJNjmr09Hsrrwyyjt 2021 12:00amMarch 2022 8:25amDexamethasone 4 mg MpjfeoZrurrmorfywp90EJGDJksa55Ihuhyjt 2021 12:00amMarch 2022 11:42am Potassium Chloride 10 mEq Capsule, Extended NadimrlWiqlqonkitak50VGJJIXmckz52 August 18, 2022 8:14amJanuary 2022 9:32amAcyclovir 400 mg Tablet Trsldhnavonr518WNISCesrt txbby66422Ytqmstdb 2021 9:11amJanuary 2024 11:30amNystatin 100,000 unit/mL BgdgchndndTtnmsssssxxs8EVJVIwmp times udssg614 October 15, 2022 1:00amJanuary 2022 11:47amswish and swallowPotassium Chloride 10 mEq Capsule, Extended GaakbgcYbomstalskej39NCWNCVgotc11Qyrwnfa 2022 9:32amJuly 2022 8:37amLevofloxacin (Levaquin) 750 mg Tablet Cdvbovghdkka465JUKVJyfveQzyvmol 2022 1:00amJanuary 2022 12:19pm Amoxicillin-Pot Clavulanate (Augmentin) 875-125 mg HmnpsmAbxvgsduhqht8CVNPBFrbfj dailyJanuary 2022 1:00amJanuary 2022 12:23pmAmoxicillin-Pot Clavulanate 875-125 mg VegmykRgtlndjlpaqv4CAVDTAizgn oxxcn6750Pemjbau 2022 12:23pmFebruary 2022 10:37amLoratadine (Claritin) 10 mg TabletDiscontinued 10MGPODailyFebruary 2022 1:00amMay 2023 10:56amFluconazole (Diflucan) 100 mg FfwbpjRcqlvhsnhzup239QGVHYsirrWpknrnzh 2022 1:00am December 26, 2022 11:01amAmoxicillin-Pot Clavulanate (Augmentin) 875-125 mg CyjkurCvucqtvusxmq6WRLTBTmaig dailyFebruary 2022 1:00amFebruary 2022 11:01amFluconazole (Diflucan) 100 mg VrempyOetgdnbvassw944BREYJilyh54Zlmazgoy 2022 11:01amMarch 2022 8:28amAmoxicillin-Pot Clavulanate 875-125 mg DscladZwlklqpiretm3KCXFYQsydr dmujx9573Mvitzimd 2022 11:01amMarch 2022 8:23amAzithromycin (Zithromax Z-Satya) 250 mg ZnghnwCairetwrydhc8YFKD.COMPLEX January 26, 2023 12:00amMarch 2022 9:54amFor 250 mg dose pack: take 500 mg today (day 1), then 250 mg for 4 days (days 2-5)Azithromycin (Zithromax Z-Satya) 250 mg YlastoQaqaisgdqfxp1HMFH.RSHCXNY7Jxotf 27th, 2023 9:52amApril 2022 9:29amFor 250 mg dose pack: take 500 mg today (day 1), then 250 mg for 4 days (days 2-5)Ondansetron 8 mg tablet,qdjjrlxqyqvntpLhtczbhaposk6ITEYZtcsh times daily as needed for Vpbzcy22Rxlsc 11th, 2023 2:32pmSeptember 2022 11:17am Potassium Chloride 10 mEq Capsule, Extended KpxcsxyTgcyyzmdaekp51RTPZCTparl35 May 18, 2023 8:37amJanuary 2023 9:33amOndansetron 8 mg tablet,qvhrxsstpjodwsUtqmdktzcarf2EDTOPizoh times daily as needed for Koptfl71 July 08, 2023 11:17amDecember 2022 1:19pmPolyethylene Glycol 3350 (Miralax) 17 gram Powder In SebwzdTxsoprfcimba49VFZVCkbocQajsemha 2022 1:00amJune 2023 6:01pmSulfamethoxazole-Trimethoprim 800-160 mg Tablet Pzjegdqanjnj5VPOEXxghta Thursday, Thursday, and Ainxxj7128Aibwejma 2022 1:00amFebruary 2024 10:55amOndansetron 8 mg tablet,disintegrating Ykhitpvlwlej3JQIZLygkh times daily as needed for Hfrqus82Aelmvavh2022 1:19pmApril 2023 9:26amPotassium Chloride 10 mEq Capsule, Extended Release Wrwrqvpgluxe83HDNGCYsxfk43Apyxlmo 2023 9:33amApril 2023 1:08pm Temazepam (Restoril) 30 mg KyndlccOjnmuazdondv40RUTOHbphf at bedtime as needed for SleepSeptember 15, 2018 1:00amJune 2018 2:02pmCholecalciferol (Vitamin D3) (Vitamin D3) 5,000 unit NzdsdtTebhwjhsrrtn0952MVSRMTDacbiCqfuwrxx 14th, 2018 [facility]am[facility] 9:39amCyanocobalamin (Vitamin B-12) 1,000 mcg AhdutovDnayvgayojdx3174BKVYKSwywoLqqlqymw 14th, 2018 1:00am[facility] 2019 3:13pmCyclobenzaprine 10 mg eeskwxJfnkkjrnzcuz13PXFVQfjyh times dailyOctober 20, 2018 1:00amFebruary 2018 11:50amPrednisone 20 mg tablet Nuasisxhffuq19CXIVXbqqg247Jsboqxch 19th, 2018 [facility] 1:00am October 25, 2018 1:01amCholecalciferol (Vitamin D3) (Vitamin D3) 1,000 unit ZguhoiyDpnhquapdfwz5106XBQSQAFlmbwEgop 2018 12:00amMarch 2022 8:24am Cephalexin (Keflex) 500 mg dcwwngiWtarbyfyzyhz981LQYTFhrsm qdaea334Lmdxiws 2020 1:00amMarch 2020 11:01amNirmatrelvir-Ritonavir (Paxlovid (Eua)) 300 mg (150 mg x 2)-100 mg tablets,dose cycjWsgykkszqaiv7BY.VFKYDGJ09Vwsskgyn 11th, 2023 1:00am[facility] 2022 10:52amorally per package directionsMorphine 15 mg tablet extended pffttcrOwvcomiedfww59HLXYBeeob 12 aopvy1041Srxhkgvdy 17th, 2025October 2024 10:07amOxycodone 10 mg pvinhqEchcflwtxyfl70TWSYEucet 4 hours as needed for Zjpi55028Tshkkbpce 2024October 2024 10:07am Cyanocobalamin (Vitamin B-12) 1,000 mcg tablet, mtwsbglhswPwjllz7754EID SUBLINGUALDailyMarch 2022 12:00amComplies with drug therapyDexamethasone 4 mg tyuzswKivndzaoecoy46ZNVESv Directed as needed for Systemic Signs And Symptoms January 28, 2023 8:27amMarch 2023 11:17amtake 5 tablest by mouth at once when directed related to chemotherapy scheduleFluticasone Propionate 50 mcg/actuation [place],FxyfqezrpsUezdey6TEGWWTFATSSSSOFFnigv as needed for Allergy SymptomsMarch 2022 12:00amadminister into each nostrilComplies with drug therapyLisinopril 5 mg udqnblDukdwxfayuea5QASFNzgoyUxdkl 2022 12:00amMay 2023 10:56amInsulin Aspart U-100 (Novolog Flexpen U-100 Insulin) 100 unit/mL (3 mL) Insulin NhtAaerhdzhrgvf16GRPXCLBIMTBiqkr as needed for HyperglycemiaMarch 2022 12:00amJune 2023 9:15pmINJECT 25 UNITS UNDER THE SKIN ON CHEMO DAYS AFTER CHEMOOndansetron 8 mg tablet,disintegrating Jlpptuvbhfgp2JBOFShxzb times daily as needed for NauseaMarch 2022 8:36am February 10, 2023 2:32pmAtorvastatin 80 mg uazyyhUuminentmhjo30QLNAWsucpWqzdm 2022 12:00amJune 2023 1:14pmPhenazopyridine 100 mg Tablet Piwcjttjnnjt625IBVIIsyiu times daily as needed for Kvsy80Ugxet 2022 12:00amApril 2022 9:20amCephalexin 500 mg tcpvxleFrhxpkngeymj909ZENMOheaw yjlnt753Ffktv 2022 12:00amApril 2022 9:29amGabapentin 400 mg Capsule Oompivxypdnr905GBFUUooin times dailyApril 2022 12:00amApril 2023 10:49amCholecalciferol (Vitamin D3) 125 mcg (5,000 unit) bdrzeasOyqgct868JDOKZ DailyJune 2023 12:00amFreeTextSig: as directed Orally 2 capsules 4 days a week, 3 capsules 3 days a week.; Note: Source Status: Not-TakingundefinedPRN; Provider: Gallo Wilson ( )UnknownEpinephrine 0.3 mg/0.3 mL auto-injectorActive0.3MGIMOnce as needed for anaphylaxisJune 2023 12:00am UnknownLisinopril 5 mg zsfzpjJdyllbuymfch1BJVQArsfqVoxi 2023 12:00amOctober 2023 11:32amOmeprazole 40 mg capsule,delayed release(DR/EC)Ptzwhrwxsxud98 MGPODailyJune 2023 12:00amOctober 2023 11:33amFreeTextSi capsule Orally Once a day; Note: Source Status: Taking; Provider: Gallo Wilson ( )Ondansetron Hcl 8 mg ijozcaXiszqasydixt6JMZQL3Z as needed for nausea and vomitingJune 2023 12:00amJune 2023 1:13pmFreeTextSig: TAKE 1 TABLET BY MOUTH 3 TIMES A DAY NEEDED FOR NAUSEA Oral; Note: Source Status: Taking; Refills: 3; Qty: 30 Unspecified; Provider: FAY AMYPrednisone 20 mg tabletDiscontinuedMGJune 2023 12:00amJune 2023 9:14pmOxycodone 10 mg sfqydhBetcnmwlvvpk91NJUUFmfn times daily as needed for PainJune 2023 12:00amJuly 2023 9:55amCefepime 2 gram Recon WoooVvcdqygugqtr2RFTFO3J01815 April 15, 2024 12:00amJuly 2023 1:28pmSpironolactone 50 mg Tablet Vczdqmaydihs66TGKZVfeew68Muav 18th, 2024 12:00amJuly 2023 1:28pmFurosemide 20 mg SnougzSggogpgnxgcj12GXRRNduiu at 828133Ewwi 2023 12:00amJuly 2023 1:28pmMagnesium Oxide 420 mg palpptPlxrpoanhxxa407XTBUKhnla09Jmzk 2023 12:00amJuly 2023 1:28pmAtorvastatin 80 mg cvtecuWjnuyn59MKTSZftbh5 April 19, 2024 1:13pmComplies with drug therapyMetformin 500 mg Tablet Extended Release 24 RvOsmpxh564BUSHWgozz5Rmaa 18th, 2024 1:13pmComplies with drug therapy Gabapentin 400 mg uylltptNtitzdxmrzbc631QUQXTpkhi yered9803Fqip 2023 1:17pmJune 2023 9:43amOxycodone 10 mg cjdtbaBcrnfoenavqc77WTQOPuzde 4 hours as needed for Rhik27233Fcfh 2024July 2024 11:49amMorphine 15 mg tablet extended nnppoqfLohxclnxnafe29LKFMVtqzu 12 ohldt0291Axtv 2024May 26, 2025 9:05amOxycodone 10 mg klyvioWpxtlypquoxb50VZCATbzlw 4 hours as needed for Vrar78469Iukn ugust 2024 11:14amMorphine 15 mg tablet extended vgbdahyXvsnngersffc58ODGDYhfae 12 usxrj4998Owvput 2024June 15, 2025 11:14amOndansetron 8 mg tablet,adzsdpvxrkicxoUptfsi3XDRDYpbhy daily as needed for nausea and pxugcmoq9148Xkgervq 2024 10:07amUnknown Morphine 15 mg tablet extended uhxsuylRzbjkw26BEQAUwjec 12 nnicq0844Bncmlto 2024UnknownOxycodone 10 mg fgrjfvMczqpw65PEVFQtrvr 4 hours as needed for Iruy93692Iyffump 2024UnknownPromethazine 25 mg fblcygSmbmeshfebdz04LRDS Three times daily as needed for nausea and itmafhef8978Fgvmv 2023 12:00am January 21, 2024 12:20pmOlanzapine 2.5 mg tabletDiscontinued2.5MGPODaily at xxozsvt2939Kagme 2023 12:00amMay 2023 2:02pmSumatriptan Succinate 50 mg bsdtacNqiabpogjzbm2IM.COMPLEXMay 2023 12:00amJune 2024 8:46amtake 1 tab at onset of headache; if no relief may repeat 1 tab after at least 2 hrs; max = 4 tabs/24 hr PONaloxone 4 mg/actuation spray,non-kqtnwpxRdgjnj5QLQJX INTRANASALevery 2 to 3 minutes as needed for opioid overdoseMa2023 12:00amspray 1 dose into ONE nostril; alternate nostrils w each dose until help arrivesUnknownMelatonin 1 mg pbqpydKrkwrh3CJBMRsvco at bedtimeMay 2023 12:00amUnknownTeclistamab-Cqyv (Tecvayli) 10 mg/mL solutionDiscontinuedSUBCUTMay 2023 12:00amMay 2023 11:10amAlbuterol Sulfate 2.5 mg /3 mL (0.083 %) solution for nebulizationDiscontinued2.5MGINHALATIONEvery 6 hoursMay 2023 12:00amAugust 2023 9:28amTeclistamab-Cqyv (Tecvayli) 10 mg/mL solution DiscontinuedSUBCUTMay 2023 11:09amJuly 2023 1:28pmOn Hold: Resume on 05/06/24. Hold until recommended to be resumed by your primary care doctor and your multiple myeloma specialist patient is unsure of dose at this timeSodium Chloride 3 % solution for cdwvquijrkpkWjltoi0SSYCCRGIVWOBUfwal times afmtz8718Fgkarf 2023 12:00amOn Hold: changing doseUnknownSodium Chloride 0.9 % solution for nebulizationActive3 MLINHALATIONEvery 12 jlwkw26464Skgxar 2023 2:55pmUnknown Nnhaqeyyuk-Hifhztoi-Iifevcwced (Breztri Aerosphere) 160-9-4.8 mcg/actuation HFA aerosol xxzqxemClsrfmtulfjy4TYJQUGPAPZVDQYhnxh dailyAugus2023 12:00am June 28, 2024 10:12amGabapentin 400 mg envaidfOiwhrigqcjpa954EQURMedfx times krjjb2990Dtftbm 2023 9:46amOctober 2023 11:55amOxycodone 10 mg pkndpwIllcptwzppre38OAFCLQJWQ 4-6 HOURS as needed for Ihye61345Nootko 2023July 28, 2024 1:27pmOxycodone 10 mg cazzuxCsjxnizqmvrh63XWNGOKTCH 4-6 HOURS as needed for Fxrs99493Ocvogrqr 2023Jan2024 2:11pm Hydrocortisone-Pramoxine 25-18 mg bvmwiohagdaSajkwm0WEAZISEpajt yfgwn76Jicfzbk2024 1:00amUnknownAcyclovir 400 mg wyglauUcskdd616HHDDKxhpl hbqne69734 November 16, 2024 11:30amUnknownLidocaine 5 % owqoqRsijwi5RIEDBPFTHEIQQRrxhn daily as needed for kmrk82MzgmazkNovember 16, 2024 1:00amUnknownHydrocortisone (Anusol-Hc) 2.5 % cream with perineal oabvryinglWzduyh1EFBKQJLJ4-6 TIMES PER DAY as needed for xrshwjjwnoe62Izfzakv 15th, 2025 1:00amUnknownSennosides (Senokot) 8.6 mg tabletActive8.6MGPODailyApril 2024 12:00amUnknownPantoprazole 40 mg tablet,delayed release (DR/EC)Ovdnzjyfrpjf27MHYDUivxj dailyJune 2024 9:06amJune 2024 9:07amPantoprazole 40 mg tablet,delayed release (DR/EC) Bcmerqqgigfp42UDTXWbnwz ijutw30Drjl2024 9:07amJuly 2024 10:40am Fyodkzjofu-Xjgjgmux-Mbhjywastr (Breztri Aerosphere) 160-9-4.8 mcg/actuation HFA aerosol tyyfumeSixwwqwoyyaf6QRLDYSBAURDSAPmcxp dailyMay 2023 12:00amJune 2023 11:00amPantoprazole 40 mg tablet,delayed release (DR/EC)Rnbhuzywcnul58 MGPODailyMay 2023 12:00amJune 2023 6:01pmOxycodone 10 mg tablet Yeznevqedapl80UHHHPHSRQ 4-6 HOURS as needed for Ivas68288Qol 2023Jun2023 6:02pmOlanzapine 2.5 mg tabletDiscontinued2.5MGPODaily at bedtimeJuly 2023 12:00amDecember 2023 12:18pmOndansetron 8 mg tablet,disintegrating Ahenxansegmc1LHDRWylut 8 hours as neededJuly 2023 12:00amA2023 10:40amSemaglutide (Ozempic) 0.25 mg or 0.5 mg (2 mg/3 mL) pen injector DiscontinuedMGSUBCUTJuly 2023 12:00amA2023 9:29amPrednisone 20 mg rgjntgYmicefjxrkzt93PJRXXsyfpKutt 2023 12:002023 9:29am Levofloxacin 750 mg djbpcfOfxobiplworn119HEDWQamfnFsez 2023 12:00am September 15, 2024 11:04amFurosemide (Lasix) 20 mg vurizlIqtvxs26MTWSMuclu morningJuly 2023 12:00amUnknownPantoprazole 40 mg tablet,delayed release (DR/EC)Aoyvxzrdnqvr57CROGMavhdOqdjjbu 2023 12:00amJune 2024 9:07am Semaglutide (Ozempic) 0.25 mg or 0.5 mg (2 mg/3 mL) pen injectorActive0.25MG SUBCUTevery weekAugust 26, 2024 12:00amfor 4 weeksUnknownGabapentin 400 mg kqpevhiIimzsffxmjtg175YMUVEobfs times foklw1166CuvegpvAugust 26, 2024 11:55am July 27, 2025 10:43amOxycodone 10 mg nztpgpXmloohbvroko33IROTAEVFE 4-6 HOURS as needed for Sqok17374Rlvzdgv 25th, 2024Nov2023 9:59am Cetirizine (Zyrtec) 10 mg ikukflIswdkw47TVRYLgdyd as neededSeptember 15, 2024 1:00amUnknownDiazepam 5 mg hhxiyoGchrwwdxpdmd6PATD.COMPLEX as needed for anxiety 2023 1:00amJune 2024 2:15pm5 mg orally 1 dose 30 minutes prior to PET scan, may repeat once 5 minutes before PRN;Oxycodone 10 mg tablet Jsjqpviandzw96JHATULYAG 4-6 HOURS as needed for Tnox83920Amnrwcvq 2024January 23, 2025 9:22amMagnesium Oxide 400 mg magnesium atgstkDlthuyuccxin152MF BIPzycu56Ladbagft 2024 1:00amMarch 2024 3:13pmOndansetron 8 mg tablet,netoafjuygheqrHlhokqmszaop9OSOIPxdpu 8 hours as needed for nausea and gqxsutim46Lcstx 2024 3:06pmJune 2024 11:11amMorphine 15 mg tablet extended wlygqzdBccfttborpde75EFPADdhij 12 pmupo4832Glzn 2024July 2024 9:17amMorphine 15 mg tablet extended hvlyajfIscqmdqxzzgk87KZQDOpirg 12 sfffj5808Zdqf ugu2024 11:11amTrazodone 50 mg noqbdbWkxqvm81 MGPODaily at bedtime as needed for lhnel8062Bavuctm 2024 12:00amUnknown Procedures Procedure Date Performed Status XR chest 2V* January 21, 2024 10:21am complet ed CT chest w con January 25, 2024 2:52pm complete d CT sinus wo con January 25, 2024 2:52pm complete d PET NaF bone subq (nopr) September 21, 2024 1:1 9pm completed PET tumor subq tx strat sb-mt November 16, 2017 1:00am completed XR bone survey May 31, 2018 7:43am completed XR bone survey July 01, 2019 10:41am comple nima PET tumor subq tx strat wb January 02, 2020 12:31 pm completed XR femur BI January 31, 2020 10:57am complet ed XR pelvis 1-2V January 31, 2020 10:57am complet ed MR cervical spine wo con May 31, 2020 6:42am completed XR pre/post mri xray May 31, 2020 6:42am comp leted XR hand LT min 3V* November 19, 2020 11:13am co mpleted PET NaF bone subq (nopr) January 14, 2021 12:33p m completed MR thoracic spine wo/w con April 03, 2021 7:34pm completed PET NaF bone subq (nopr) April 22, 2021 10:49am completed MR cervical spine wo/w con April 26, 2021 12:00 am completed XR knee RT 2V July 17, 2021 10:09am com pleted XR hip RT min 2V(w/wo pelvis)* July 17, 021 10:09am completed XR femur RT 2V* July 17, 2021 10:09am com pleted MR femur RT wo/w con July 23, 2021 2:56pm completed XR bone survey October 04, 2021 12:04pm compl eted XR chest 2V* February 05, 2022 10:38am complete d PET NaF bone subq (nopr) April 30, 2022 12:49pm completed CT sinus wo con December 01, 2022 11:52am compl eted XR femur RT 2V* February 18, 2023 10:39am complet ed XR hip RT min 2V(w/wo pelvis)* February 18, 2023 10:39am completed PET NaF bone subq (nopr) March 09, 2023 12:42pm c ompleted MR abdomen wo/w con April 17, 2025 9:58am compl eted Aerobic Culture January 21, 2024 completed Gram Stain January 21, 2024 completed Urine Culture May 30, 2025 completed Relevant Diagnostic Tests and/or Laboratory Data Laboratory Results Test Collection Date/Time Result Date/Time Result Interpretation Reference Range Result Comment Performing Site Corrected White Blood Count August 16, 2025 8:14am August 16, 2025 8:40am 1.8 10*3/uL Below low normal 3.8-11.6 [facility] [id number] [address] [facility] [address]Nxycm Blood CountJanuary 2020 10:55amJanuary 2020 11:16am2.9 10*3/uLBelow low normal4.5-11.0[facility] [address] [facility] [address]Omqztaeimro WBC CountOctober 2024 8:14amOctober 2024 8:40am1.8 10*3/uLBelow low normal3.8-11.6[facility] [id number] [address] [facility] [address]Mjb Blood CountOctober 2024 8:14amOctober 2024 8:40am3.45 10*6/uLBelow low normal3.60-5.00[facility] [id number] [address] [facility] [address]KoxmixnnnqXbvdqmi 2024 8:14amOctober 2024 8:40am 11.2 g/dLBelow low .8-15.4F[facility] [id number] [address] [place] [address] 56808WvtjnmeatvRxfsgxr 2024 8:14amOctober 2024 8:40am 32.6 %Below low uneiwu90.0-46.4FGrand [facility] [id number] [address] [place] [address] 62575Xgdi Corpuscular VolumeOctober 2024 8:14amOctober 2024 8:40am94.4 kO25-409TirryznovOhiohealth [facility] [id number] [address] [place] [address] 85666Dtxl Corpuscular HemoglobinOctober 2024 8:14amOctober 2024 8:40am32.4 pg24.7-34.3FGrand [facility] [id number] [address] [place] [address] 75200Majm Corpuscular Hemoglobin ConcentOctober 2024 8:14am August 16, 2025 8:40am34.4 g/dL32.0-35.0[facility] [id number] [address] [place] [address] 65544Otq Cell Distribution WidthOctober 2024 8:14amOctober 2024 8:40am15.3 %11.9-15.3FGrand [facility] [id number] [address] [place] [address] 81124Uhbxnoft CountOctober 2024 8:14amOctober 2024 8:40am44 10*3/uLBelow low wtdtiw756-836UycoklazpOhiohealth [facility] [id number] [address] [place] [address] 22877Dnto Platelet VolumeOctober 2024 8:14amOctober 2024 8:40am7.9 fL6.3-10.7FGrand [facility] [id number] [address] [facility] [address]Jdjpnbyrotf (%) (Auto)August 16, 2025 8:14amOctober 2024 9:03am36.0 %.[facility] [id number] [address] [facility] [address]Hqxgrevvuhj (%) (Auto)August 16, 2025 8:14amOctober 2024 9:03am16.6 %.[facility] [id number] [address] [facility] [address]Jjcxkcyvt (%) (Auto)August 16, 2025 8:14amOctober 2024 9:03am13.4 %.[facility] [id number] [address] [facility] [address]Bouknhftdva (%) (Auto)August 16, 2025 8:14amOctober 2024 9:03am33.6 %.[facility] [id number] [address] [facility] [address]Jwcityodh (%) (Auto)August 16, 2025 8:14amOctober 2024 9:03am0.4 %.[facility] [id number] [address] [facility] [address]441Lnibdqfsl Red Blood Cells % (auto)September 23, 2022 12:40pm September 23, 2022 2:57pm0.6 %Above high normal0-0.5FGrand [facility] [id number] [address] [facility] [address]Yuvxbmzel RBC Relative Count (auto)August 16, 2025 8:14am August 16, 2025 9:03am0.0 /100{WBC}0-0.5FGrand [facility] [id number] [address] [facility] [address]Iaplceiyomw # (Auto)August 16, 2025 8:14amOctober 2024 9:03am0.7 10*3/uLBelow low normal1.8-7.7FGrand [facility] [id number] [address] [facility] [address]Tjfqkdrxtob # (Auto)August 16, 2025 8:14amOctober 2024 9:03am0.3 10*3/uLBelow low normal1.00-4.8[facility] [id number] [address] [facility] [address]Fimlpwebc # (Auto)August 16, 2025 8:14amOctober 2024 9:03am0.2 10*3/uL0.0-0.8[facility] [id number] [address] [facility] [address]Vkgmrpgcack # (Auto)August 16, 2025 8:14amOctober 2024 9:03am0.6 10*3/uLAbove high normal0.0-0.45[facility] [id number] [address] [facility] [id number] # (Auto)August 16, 2025 8:14amOctober 2024 9:03am0.0 10*3/uL0.0-0.2F[facility] [id number] [address] [facility] [address]78[address]Agkessvfw NeutrophilsSept2024 8:06amSeptember 2024 9:09am38 %Below low mfuwyo53-93CyyihhzsuOhiohealth [facility] [id number] [address] [facility] [address]1206Capm Neutrophils %July 12, 2025 8:06amSeptember 2024 9:09am1 %0-5FGrand [facility] [id number] [address] [place] [id number] %July 12, 2025 8:06amSeptember 2024 9:09am20 %18-42[facility] [id number] [address] [place] [address] 41626Nnyoqaia LymphocytesApril 2024 11:05amApril 2024 12:00pm1 %0-12[facility] [id number] [address] [facility] [id number] %July 12, 2025 8:06amSeptember 2024 9:09am14 %Above high normal2-11[facility] [id number] [address] [facility] [address]5417Lllxgvqfoyb %July 12, 2025 8:06amSeptember 2024 9:09am27 %Above high normal1-3FGrand [facility] [id number] [address] [facility] [id number] %June 20, 2025 8:15amAugust 2024 10:47am1 % 0-2FGrand [facility] [id number] [address] [facility] [id number] %April 17, 2025 9:46amJune 2024 11:08am1 %Above high normal0-0[facility] [id number] [address] [facility] [address]1026Jplpuxpbkz %November 05, 2022 10:06amJanuary 2022 11:11am1 %Above high normal0-0[facility] [id number] [address] [place] [address]Ezzeci CellsDecember 2021 11:15amDecember 2021 1:25pm 1 %Above high normal0-0[facility] [id number] [address] [place] [address] 33959Lvuvc Cell TypeApril 2022 10:20amApril 2022 2:01pm7 %Above high normal0-0PLASMACYTOID LYMPHSOhiohealth [facility] [id number] [address] [facility] [address]Hgo Blood Cell MorphologyOctober 2024 8:14amOctober 2024 9:03amN/AFGrand [facility] [id number] [address] [place] [address] 78839OavxsvmwuksskNhhrihn 2024 10:00amOctober 2024 11:23am SlightOhiohealth [facility] [id number] [address] [place] [address] [id number] 2024 10:23amMarch 2024 11:36am ModerateOhiohealth Arthur [facility] [id number] [address] [place] [address] 30918XiutksrdtiryxzNsaaquf 2024 8:25amOctober 2024 9:14am SlightOhiohealth [facility] [id number] [address] [facility] [id number] 2024 8:25amOctober 2024 9:14am [facility] [id number] [address] [facility] [id number] 2024 8:15amAugust 2024 10:47am [facility] [id number] [address] [facility] [id number] 2022 11:20amMarch 2022 12:41pm SlightOhio[facility] [id number] [address] [place] [address] [id number] 2024 10:00amOctober 2024 11:23am [facility] [id number] [address] [place] [address] [id number] Drop CellsAugust 2024 10:13amAugust 2024 11:50am [facility] [id number] [address] [place] [address] 55087EvupwyzuxzPoppcky 2024 8:14amOctober 2024 9:03am [facility] [id number] [address] [place] [address] 28540GftkxfztkuhtWcq 2024 8:53amMay 2024 12:18pmSlight [facility] [id number] [address] [place] [address] 83320Azndgn-Dmhlo BodiesAugust 2021 8:58amAugust 2021 9:38amSlightOhiohealth [facility] [id number] [address] [place] [address] 71326Xggrqryi CellOctober 2021 1:10pmOctober 2021 2:12pm ModerateOhiohealth [facility] [id number] [address] [place] [address] 67958Ciwme GranulationFebruary 2024 11:10amFebruary 2024 1:33pmModerateOhiohealth [facility] [id number] 1[address] [facility] 36192Jjxsqtqh EstimateOctober 2024 8:14amOctober 2024 9:03amDecreasedNormMartin Memorial Hospital [facility] [id number] 1[address] [facility] 21059Zopxv PlateletsAugust 2024 8:15amAugust 2024 10:47am2 /100{WBC}[facility] [id number] 1[address] [facility] 11923Qqddpjzk Morphology CommentOctober 2024 8:14amOctober 2024 9:03amNormalNormMartin Memorial Hospital [facility] [id number] [address] [place] [address] 66225Fqtcs PlateletsOctober 2024 10:00amOctober 2024 11:23amSlightOhiohealth [facility] [id number] [address] [place] [address] 25764Rkhmxl for Pathologist ReviewMay 2024 8:53amMay 2024 12:36pmOrdered path reviewOhiohealth [facility] [id number] [address] [place] [address] 08643Iotpmgdwhkv TimeAugust 2024 10:13amAugu2024 11:19am14.7 sAbove high normal9.0-12.9A hematocrit value greater than 55% may lead to inaccurate results in coagulation testing. Patientshaving hematocrit values >55% require a special collection tube for coagulation studies. Please c ontact the laboratory at [phone] for redraw instructions.[facility] [id number] 1[address] [facility] 43789Zrijszjha Time International RatioAugust 2024 10:13am June 07, 2025 11:19am1.3INR Therapeutic Range A) Pre- and Peroperative OAT started two weeks before surgery. NOT HIP SURGERY: 1.5 - 2.5 HIP SURGERY: 2 - 3B) Primary and secondary prevention of venous THROMBOSIS: 2 - 3C) Active venous thrombosis, pulmonary embolismand prevention of recurrent venous thrombosis: 2 - 3D) Prevention of arterial thromboembolismincluding patients with mechanical heart valves: 3 - 4.5FGrand [facility] [id number] 1[address] [facility] 35146Tljco ColorApril 2022 10:50amApril 2022 11:20amYellow YellowOhiohealth Arthur G.[facility]. [facility], [facility] [id number] 1[address] [facility] 30273Kimwb ColorJuly 2024 8:40amJuly 2024 9:11amRed Abnormal (applies to non-numeric results)[facility] [id number] 1[address] [facility] 94108Sehzb ColorSeptember 2024 12:20pmSeptember 2024 11:30pmColorlessYellowOhiohealth Arthur [facility] [id number] 1[address] [facility] 44683Oajyt AppearanceApril 2022 10:50amApril 2022 11:20am ClearCleT[facility] [id number] 1111 [facility] 23235Jqbyg AppearanceJuly 2024 8:40amJuly 2024 9:11am TurbidAbnormal (applies to non-numeric results)[facility] [id number] 1111 [facility] 75469Fzhej AppearanceSeptember 2024 12:20pmSeptember 2024 11:30pmClearClearOhiohealth Arthur [facility] [id number] 1[address] [facility] 43864Eljed Specific GravityApril 2022 10:50amApril 2022 11:20am1.0051.001-1.030[facility] [id number] 1[address] [facility] 80659Ylhox Specific GravityJuly 2024 8:40amJuly 2024 9:11am1.0101.001-1.030Rechecked by refractometerOhiohealth Arthur [facility] [id number] 1111 [facility] 52921Fqcru Specific GravitySeptember 2024 12:20pmSeptember 2024 11:30pm1.0051.001-1.030[facility] [id number] 1[address] [facility] 40745Bwwpx pHApril 2022 10:50amApril 2022 11:20am6.0 5.0-9.0[facility] [id number] 1[address] [facility] 30010Lnyik pHJuly 2024 8:40amJuly 2024 9:11amSee comment 5.0-9.0Unable to obtain accurate result due to color interference.[facility] [id number] 1[address] [facility] 70669Exvqd pHSeptember 2024 12:20pmSeptember 2024 11:30pm6.55.0-9.0[facility] [id number] 1[address] [facility] 42502Spete Leukocyte EsteraseApril 2022 10:50amApril 2022 11:20amNegativeNegativeOhiohealth [facility] [id number] 1[address] [facility] 45290Wbhjh Leukocyte EsteraseJuly 2024 8:40amJuly 2024 9:11amSee commentNegativeUnable to obtain accurate result due to color interference.[facility] [id number] 1111 [facility] 88285Jsbte Leukocyte EsteraseSeptember 2024 12:20pmSeptember 2024 11:30pmNegativeNegativeOhiohealth Arthur [facility] [id number] 1[address] [facility] 21386Efmvf NitriteApril 2022 10:50amApril 2022 11:20am NegativeNegativeOhiohealth [facility] [id number] 1[address] [facility] 07300Eveni NitriteJuly 2024 8:40amJuly 2024 9:11amSee commentNegativeUnable to obtain accurate result due to color interference. [facility] [id number] 1111 [facility] 31575Rlngn NitriteSeptember 2024 12:20pmSeptember 2024 11:30pmNegativeNegativeOhiohealth [facility] [id number] 1111 [facility] 49884Cxydf ProteinApril 2022 10:50amApril 2022 11:20am Negative mg/dLNegativeOhiohealth [facility] [id number] 1111 [facility] 62779Dcwzw ProteinJuly 2024 8:40amJuly 2024 9:11amSee commentNegativeUnable to obtain accurate result due to color interference. [facility] [id number] 1111 [facility] 26587Bwhnk ProteinSeptember 2024 12:20pmSeptember 2024 11:30pmNegative mg/dLNegativeOhiohealth [facility] [id number] 1111 [facility] 73299Mnfzo Glucose (UA)February 06, 2023 10:50amApril 2022 11:20amNormal mg/dLNormalOhiohealth Arthur [facility] [id number] 1[address] [facility] 62646Pyjmc Glucose (UA)May 30, 2025 8:40amJuly 2024 9:11am See commentNormalUnable to obtain accurate result due to color interference. [facility] [id number] 1111 [facility] 56584Uqghn Glucose (UA)July 19, 2025 12:20pmSeptember 2024 11:30pmNormal mg/dLNormalOhiohealth [facility] [id number] 1[address] [facility] 23676Yeoov KetonesApril 2022 10:50amApril 2022 11:20am NegativeNegativeOhiohealth [facility] [id number] 1[address] [facility] 28458Loqxj KetonesJuly 2024 8:40amJuly 2024 9:11amSee commentNegativeUnable to obtain accurate result due to color interference. [facility] [id number] 1[address] [facility] 79045Jgwlt KetonesSeptember 2024 12:20pmSeptember 2024 11:30pmNegativeNegativeOhiohealth [facility] [id number] 1[address] [facility] 64585Eipwd UrobilinogenApril 2022 10:50amApril 2022 11:20amNormal mg/dLNormalOhiohealth [facility] [id number] 1[address] [facility] 90347Bfjye UrobilinogenJuly 2024 8:40amJuly 2024 9:11am See commentNormalUnable to obtain accurate result due to color interference. [facility] [id number] 1[address] [facility] 84999Rdsxr UrobilinogenSeptember 2024 12:20pmSeptember 2024 11:30pmNormal mg/dLNormalOhiohealth [facility] [id number] 1[address] [facility] 06790Tfeyi BilirubinApril 2022 10:50amApril 2022 11:20am NegativeNegativeOhiohealth Arthur [facility] [id number] 1[address] [facility] 95784Lcqnc BilirubinJuly 2024 8:40amJuly 2024 9:11amSee commentNegativeUnable to obtain accurate result due to color interference. [facility] [id number] 1[address] [facility] 17356Hlnhq BilirubinSeptember 2024 12:20pmSeptember 2024 11:30pmNegativeNegativeOhiohealth [facility] [id number] 1[address] [facility] 38198Wmezu Occult BloodApril 2022 10:50amApril 2022 11:20amNegativeNegativeOhiohealth [facility] [id number] 1[address] [facility] 43076Almgd Occult BloodJuly 2024 8:40amJuly 2024 9:11am See commentNegativeUnable to obtain accurate result due to color interference. [facility] [id number] 1[address] [facility] 65721Svmpp Occult BloodSeptember 2024 12:20pmSeptember 2024 11:30pmNegativeNegativeOhiohealth [facility] [id number] 1[address] [facility] 11864Igyul RBCJuly 2024 8:40amJuly 2024 9:34am Innumerable [HPF]Above high normal0-4[facility] [id number] 1[address] [facility] 82301Ozeer WBCJuly 2024 8:40amJuly 2024 9:34am Innumerable [HPF]Above high normal0-4FGrand [facility] [id number] 1[address] [facility] 92683Vfkjy Squamous Epithelial CellsJuly 2024 8:40amJuly 2024 9:76qi0-7 [HPF]Above high normal0-2FGrand [facility] [id number] 1[address] [facility] 56910Tysxe BacteriaJuly 2024 8:40amJuly 2024 9:34am1+ [HPF]Above high normalNone SeenOhiohealth Arthur G.H. [facility], [facility], [facility] [id number] 1[address] [facility] 13841Mucji Hyaline CastsJuly 2024 8:40amJuly 2024 9:34am None [LPF]0-8[facility] [id number] 1[address] [facility] 67549Uffqxcp LevelOctober 2024 8:14amOctober 2024 8:48am 109 mg/dLAbove high -388WLQ recommended reference rangeRandom Glucose Reference Range is dependent on time and content of last meal. Glucose of more than 200 mg/dL in a nonstressed, ambulatory subject supports the diagnosisof Diabetes Mellitus.[facility] [id number] 1[address] [facility] 74603Nrjff Urea NitrogenOctober 2024 8:14amOctober 2024 8:48am17 mg/dL7-25[facility] [id number] [address] [place] [address] 65351SljgboaibjRvwyvmr 2024 8:14amOctober 2024 8:48am 0.99 mg/dL0.60-1.20[facility] [id number] 1[address] [facility] 32733Tijvctoej GFR (Non- AmericanFebruary 2022 11:44am December 25, 2022 12:28pm> 60 mL/MinOhiohealth Arthur G.H. [facility], Md, [facility] [id number] 1111 [facility] 95986Zhkoolvue GFR (CKD-EPI)August 16, 2025 8:14amOctober 2024 8:48am> 60.0 mL/MinOhiohealth Arthur G.H. [facility], [facility], [facility] [id number] [address] [place] [address] 29588Olffnlfgk GFR ()December 25, 2022 11:44am December 25, 2022 12:28pm> 60 mL/MinGFR estimated reference range: According to KDOQI guidelines, <60 ml/min/1.73m2 is sufficient todiagnose a patient with chronic kidney disease.[facility] [id number] 1[address] [facility] 06250Lscklv LevelOctober 2024 8:14amOctober 2024 8:48am 138 mmol/O470-896FfeptjitzOhiohealth Arthur G.[facility]. [facility] [id number] [address] [place] [address] 30320Shyzdqkwj LevelOctober 2024 8:14amOctober 2024 8:48am4.1 mmol/L3.5-5.1FGrand [facility] Joint [facility] [id number] [address] [place] [address] 49013Xfhvvetc LevelOctober 2024 8:14amOctober 2024 8:71im387 mmol/B92-654XcqvlvtcwOhiohealth Arthur [facility] [id number] [address] [place], [place] 3376270Carbon Dioxide LevelOctober 2024 8:14amOctober 2024 8:48am28.5 mmol/L21.0-31.0[facility] [id number] [address] [place] [address] 97361Zijsk GapOctober 2024 8:14amOctober 2024 8:48am8.6 mEq/L6.0-15.0[facility] [id number] [address] [place], [place] 3[address]Calcium LevelOctober 2024 8:14amOctober 2024 8:48am 9.0 mg/dL8.6-10.3FGrand [facility] Joint [facility] [id number] [address] [place], [place] [address]Magnesium LevelOctober 2024 10:32amOctober 2024 11:04am1.7 mg/dLBelow low normal1.9-2.7FGrand [facility] Joint [facility] [id number] 1[address] [facility] 03815Ywydf ProteinOctober 2024 8:14amOctober 2024 8:48am 5.5 g/dLBelow low normal6.4-8.9[facility] [id number] [address] [place] [address] 18768HrupudfYymidfy 2024 8:14amOctober 2024 8:48am3.6 g/dL3.5-5.7FGrand [facility] [id number] [address] [place] [address] 45486WwiyvkwySrgevsc 2024 8:14amOctober 2024 8:48am1.9 g/dLOhiohealth Arthur [facility]. [facility] [id number] [address] [place] [address] 67412Qasnnzg/Globulin RatioOctober 2024 8:14amOctober 2024 8:48am1.9[facility] [id number] [address] [place] [address] 87119Ehlsz BilirubinOctober 2024 8:14amOctober 2024 8:48am0.9 mg/dL0.3-1.0[facility] [id number] [address] [place] [address] 44948Ksdxfadoe Amino Transf (AST/SGOT)August 16, 2025 8:14am August 16, 2025 8:48am27 U/H10-64GdszefwmsOhiohealth Arthur G.[facility]. [facility] [id number] [address] [place] [address] 40902Ewpfkph Aminotransferase (ALT/SGPT)August 16, 2025 8:14am August 16, 2025 8:48am13 U/L7-52[facility] [id number] [address] [place] [address] 04254Xjwfvydf PhosphataseOctober 2024 8:14amOctober 2024 8:48am94 U/Y93-197QtjctljvtOhiohealth Arthur G.[facility]. [facility] [id number] [address] [place] [address] 79702Irsidrj DehydrogenaseMay 2021 10:55amMay 2021 11:10zc636 U/Y61-725YzucsruknOhiohealth Arthur [facility] 1[address] [facility] 14052Bcmf LevelOctober 2024 8:14amOctober 2024 8:48am70 ug/uP03-606XxfvrrwhdOhiohealth Arthur G.[facility] [id number] 1[address] [facility] 66384Goyiv Iron Binding CapacityOctober 2024 8:14amOctober 2024 8:75pd109 ug/cX812-135EjcriivkaOhiohealth Arthur G.[facility]. [facility] [id number] 1[address] [facility] 40030Bdss SaturationOctober 2024 8:14amOctober 2024 8:48am23.9 %20-50[facility] [id number] 1[address] [facility] 58410CsuxafynzeaFdgjdam 2024 8:14amOctober 2024 8:48am 209 mg/qV688-491CnzmpqkewOhiohealth Arthur G.[facility] [id number] 1[address] [facility] 21904YqcwbxmfCkrtcmi 2024 8:14amOctober 2024 9:60vy523.1 ng/mL11.0-306.8[facility] [id number] 1[address] [facility] 16204Tuvbjjeqcdt LevelMay 2020 1:08pmMay 2020 1:18fv637 mg/dLBelow low elfhba649-603Qyxm less than 200 mg/dl low riskChol 201-239 mg/dl borderline riskChol 240 mg/dl and greater high riskOhiohealth Arthur G.[facility]. [facility] 1[address] [facility] 90011WUL CholesterolMay 2020 1:08pmMay 2020 1:55pm49 mg/vW36-19NMG CHOL ATP-III CLASSIFICATION Cardiovascular RiskHDL > or equal to 60 mg/dL LOWHDL < 40 mg/dL [facility] 1[address] [facility] 30772Rhxjkrsjfkafs LevelMay 2020 1:08pmMa2020 1:55pm51 mg/tY39-708GSPP ATP III CLASSIFICATIONTRIG less than 150 mg/dL NormalTRIG 150- 199 mg/dL Borderline highTRIG 200-500 mg/dL High TRIG greater than 500 mg/dL Very highStandard traceable to the Center for Disease Conrtrol and Prevention (CDC) test method.[facility] 1[address] [facility] 35215SLZ Cholesterol, CalculatedMa2020 1:08pmMa2020 1:55pm50 mg/dL0-100LDL ATP III CLASSIFICATIONLDL less than 100 mg/dL OptimalLDL 100-129 mg/dL Near or above tpwlqquLWO296-128 mg/dL Borderline highLDL 160-189 mg/dL HighLDL greater than 189 mg/dL Very highOhiohealth Arthur G.[facility]. [facility] 1111 [facility] 96975JTIR CholesterolMa2020 1:08pmMa2020 1:55pm10 mg/dLOhiohealth Arthur [facility] 1[address] [facility] 75977Udsibnhbcar/HDL RatioMa2020 1:08pmMa2020 1:55pm 2.2<5.0[facility] 1[address] [facility] 86063Zfoyhrx B12 LevelOctober 2024 10:00amOctober 2024 11:73xr7786 pg/mLAbove high cthtez646-039OyppqclcsOhiohealth Arthur G.H. [facility] [id number] 1[address] [facility] 05263XdobnjHpmgfiq 2024 10:00amOctober 2024 11:02am9.9 ng/mL>5.9Folate reference range: >5.9 ng/mlThe WHO technical consultation on folate and vitamin r66whckzwglwdxj has determined that folate concentrations lessthan 4 ng/ml are considered deficient.[facility] [id number] 1[address] [facility] 80584Bewuuye Stimulating Hormone 3rd GenFebruary 2024 10:45am December 29, 2024 11:50am5.13 u[iU]/mL0.45-5.33[facility] [id number] 1[address] [facility] 91257Aqsbyzdh Creatinine Clearance (ChemOctober 2024 8:14am October 2024 8:48am56.18FGrand [facility] [id number] 1[address] [facility] 13280Fniwxsixcu N5tTxbn 2024 10:04amJuly 2024 11:49am5.7 %Above high normal4.3-5.6Increased risk for diabetes: 5.7 - 6.4diabetes: >6.4glycemic control for adults with diabetes: <7.0[facility] [id number] 1[address] [facility] 28820Lcuurambe Average GlucoseJuly 2024 10:04amJuly 2024 11:78qq269 mg/dLMercy Health St. [facility] [id number] 1111 [facility] 48732Xbuna Microalbumin mg/dlMay 2020 1:08pmMay 2020 1:55pm1.1 mg/dL0.0-1.8[facility] 1[address] [facility] 78251Vyyfe Random CreatinineMay 2020 1:08pmMay 2020 1:83qz390.0 mg/dLNo reference range establishedMercy Health St. [facility] 1111 [facility] 75044Zfvdz Microalbumin/Creatinine RatioMay 2020 1:08pmMay 2020 1:55pm6.0 mg/g0.0-30.030-300 mg/g indicates an increased risk for diabetic nephropathy. Greater than 300 mg/g is consistent with clinical nephropathy. (Am. J. Kidney Disease 1995, 25:107)[facility] 1[address] [facility] 37041Jowzpmxpwyooy TestMarch 2023 12:30pmMarch 2023 3:12pmSee commentSee report. Scanned copy available in EMR.[facility] [id number] 1[address] [facility] 72359Ziredehuwmmdv AcidMay 2022 9:55amMay 2022 3:21gd508 nmol/L0-378This test was developed and its performance characteristicsdetermined by [employer]. It has not been cleared orapproved by the Food and Drug Administration.Performed at: [address] [id number] Director: Maxine Briones MD, Phone: [phone] Marker Alpha FetoproteinSeptember 2024 8:06amSeptember 2024 12:09pm4.6 ng/mL0.0-9.2[facility] Electrochemiluminescence Immunoassay(ECLIA)Values obtained with different assay methods or kits cannotbe used interchangeably. Results cannot be interpreted asabsolute evidence of the presence or absence of malignantdisease.This test is not interpretable in females.Performed at: [address] [id number] Director: Lang Knight PhD, Phone: [phone] ImmunofixationSeptember 2024 8:06am July 14, 2025 2:09pmComment.No monoclonality detected.[facility] LevelOctober 2024 10:00amOctober 2024 10:91nn136 ug/yW02-676Qnas test was developed and its performance characteristicsdetermined by [employer]. It has not been cleared orapproved by the Food and Drug Administration. Detection Limit = 5Performed at: [address] [id number] Director: Maxine Briones MD, Phone: [phone] GOctober 2024 10:00amOctober 2024 6:56xa066 mg/aO893-3913IisVvpl AOctober 2024 10:00amOctober 2024 6:36am<5 mg/dLBelow low iqcpoo70-023Zdaavz confirmed on concentration.[facility] MOctober 2024 10:00amOctober 2024 6:36am<5 mg/dLBelow low lcyzvs37-800Hasdhd confirmed on concentration.[facility] EOctober 2024 10:00amOctober 2024 6:36am<2 [IU]/mLBelow low normal6-495Performed at: [address] [id number] Director: Lang Knight PhD, Phone: [phone] at: [address] [id number] Director: Maxine Briones MD, Phone: [phone] 2024 10:00amOctober 2024 3:36am29.4 mg/dL19.0-39.0Performed at: [address] [id number] Director: Lang Knight PhD, Phone: [phone] [facility] 2018 5:14pmFebruary 2018 11:01am1.9 mg/L0.6-2.4[employer] Immulite 2000 Immunochemiluminometric assay (ICMA)Values obtained with different assay methods or kits cannotbe used interchangeably. Results cannot be interpreted asabsolute evidence of the p resence or absence of malignantdisease.Performed at: [address] [id number] Director: Maxine Briones MD, Phone: [phone] Vitamin D TotalJanuary 2017 10:55amJanuary 2017 9:56am22 ng/mLBelow low normal.Reference Range:All Ages: Target levels 30 - 100LabR[facility] ,25 Dihydroxy Vitamin D2 November 16, 2017 10:55amJanuary 2017 9:56am12 ng/mL.[facility] ,25 Dihydroxy Vitamin M7Acqwktp 2017 10:55amJanuary 2017 9:56am10 ng/mL.Performed at: [address], [place], [place] [id number] Director: Dwayne Hobbs MD, Phone: [phone] (Cardiovascular)March 11, 2023 9:55amMay 2022 5:07am7.9 umol/L0.0-17.2Performed at: - [facility] [id number] Director: Lang Knight PhD, Phone: [phone] AntigenMarch 2023 12:30pmMarch 2023 3:08pmNegativeNegativePerformed at: [facility] Lab[address] [id number] Director: Maxine Briones MD, Phone: [phone] Total ProteinSeptember 2024 8:06amSeptember 2024 2:08pm5.4 g/dLBelow low normal6.0-8.5[facility] (Send Out)July 12, 2025 8:06amSeptember 2024 2:08pm3.1 g/dL2.9-4.4[facility] 2024 8:06amSeptember 2024 2:08pm0.3 g/dL0.0-0.4[facility] Hsmlo-4-VddwftpeaQkbgcmzxh 2024 8:06amSeptember 2024 2:08pm0.7 g/dL 0.4-1.0[facility] GlobulinsSeptember 2024 8:06amSeptember 2024 2:08pm0.8 g/dL0.7-1.3[facility] GlobulinsSeptember 2024 8:06amSeptember 2024 2:08pm0.4 g/dL0.4-1.8[facility] Protein Electrophoresis M-SpikeSept2024 8:06amSeptember 2024 2:08pmNot observed g/dLNot ObservedLabCorp (PEP)July 12, 2025 8:06amSeptember 2024 2:08pm2.3 g/dL2.2-3.9[facility] Albumin/Globulin (PEP)July 12, 2025 8:06amSeptember 2024 2:08pm1.3 0.7-1.7[facility] Electrophoresis NoteSept2024 8:06amSeptember 2024 2:08pmComment.Protein electrophoresis scan will follow via computer,mail, or sign erector delivery.Performed at: [facility] [id number] Director: Lang Knight PhD, Phone: [phone] [place] Light Chains, QuantAugust 2024 10:13amAugust 2024 2:36pm<0.7 mg/LBelow low normal3.3-19.4[facility] Lambda Light Chains, QuantAugust 2024 10:13amAugust 2024 2:36pm5.8 mg/L5.7-26.3[facility] [place]/Lambda Light Chain RatioAugust 2024 10:amAugust 2024 2:36pm<0.12Below low normal 0.26-1.65Performed at: [facility] [id number] Director: Lang Knight PhD, Phone: [phone] IgGJuly 2017 1:40pmJuly 2017 8:25br8715 mg/vZ706-8320ZfnEsva IgAJuly 2017 1:40pmJuly 2017 8:78gn828 mg/lB34-080YwaLhkb IgMJuly 2017 1:40pmJuly 2017 8:20am75 mg/yA51-993Crfumsnqd at: [address] [id number] Director: Lang Knight PhD, Phone: [phone] Histoplasma Galactomannan AntigenMarch 2023 12:50pmApril 2023 4:08pmNegative<0.5 ng/mLThis test was developed and its performance characteristicsdetermined by [employer]. It has not been cleared orapproved by the Food and Drug Administration.Performed at: [address] [place] [address] [place] [address], [place] [id number] Director: Mojgan Sommers MD, Phone: [phone] [employer] July 17, 2020 11:13amSept2019 2:36pmSee comment.No monoclonality detected.Performed at: [place] [id number] [place], [place] [id number] Director: Lang Knight PhD, Phone: [phone] [facility] Random Total ProteinMay 2021 1:00pmMay 2021 12:09pm<4.0 mg/dLNot Estab.Verified by repeat analysisMass[facility] & [facility] Random AlbuminMay 2021 1:00pmMay 2021 12:09pm27.0 %.[facility] Aoigl-2-Mssrcetpk (%)March 26, 2022 1:00pmMa2021 12:09pm13.6 %.[facility] Random Wwjxl-0-Oxoiucnvo % March 26, 2022 1:00pmMay 2021 12:09pm23.5 %.[facility] Random Beta-Globulin %March 26, 2022 1:00pmMa2021 12:09pm21.9 %.[facility] Random Gamma Globulin %March 26, 2022 1:00pmMa2021 12:09pm14.0 %.[facility] Random PEP M-Jaspal %March 26, 2022 1:00pmMa2021 12:09pmNot observed %Not ObservedLabCorp Random Prot Electrophor NoteMa2021 1:00pmMa2021 12:09pmSee comment.Protein electrophoresis scan will follow via computer,mail, or sign erector delivery.Performed at: [address] [id number] Director: Lang Knight PhD, Phone: [phone] GlucoseJuly 2020 2:24pmJuly 2020 12:20lc131 mg/dLRandom Glucose Reference Range is dependent on time and content of last meal. Glucose of more than 200 mg/dL in a nonstressed, ambulatory subject supports the diagnosis of Diabetes Mellitus.Point of Care testingBedside Glucose CommentJuly 2020 1:57pmJuly 2020 12:14amSee commentGlu2: Will Repeat TestPoint of Care testingBedside Glucose #2 CommentJuly 2020 1:57pm May 15, 2021 12:14[address] notify dr/rnPoint of Care testingBedside Glucose #3 CommentJuly 2020 1:57pmJuly 2020 12:14amCleaned meterPoint of Care testing Microbiology Results Procedure Source Result Collection Date/Time Result Date/Time Result Comment Performing Site Urine Culture Urine, Clean-Voided Midstream Klebsiella pneumoniae (ESBL) May 30, 2025 8:40am June 02, 2025 8:08am [facility] [id number] [address] [facility] [id number] CultureOther (See Comment)January 21, 2024 12:50pmMarch 2023 12:23pmOhio[facility] [id number] [address] [facility] [address]Vbwz StainOther (See Comment)January 21, 2024 12:50pmMarch 2023 4:[facility]pm[facility] [id number] [address] [place] [address] Diagnostic Imaging Reports Author Talha Dexter [facility] HospitalAuthoredJanuary 2017 3:41pmReportDictated Date/TimeDictated ByStatusRadiology ReportJanuary 2017 3:41pmYoung Armando Dexter [facility]ieompleteWVUMed[facility] Main [place] [address] [place], [place] [address] Nuclear Medicine Report Signed Patient: Mojgan Snider MR#: [id number] : 1955 Acct:[id number] Age/Sex: 62 / F ADM Date: 8 Loc: XT Room: Type: [facility] RCR Attending Dr: Fabiola Marinelli MD Ordering Physician: Fabiola Marinelli MD Date of Service: 11/16/17 PET/PET tumor subq tx strat sb-mt: MYELOMA Copies to: Fabiola Marinelli MD~ PET/CT FUSION IMAGING CLINICAL INFORMATION: Myeloma, restaging. COMPARISON : F-18 sodium fluoride bone PET imaging on 04/17/2017 TECHNIQUE: Following intravenous injection of 11.4 mCi of FDG, noncontrast CT scans were obtained from the base of the skull to the upper thigh approximately one hour after injection, immediately followed by PET imaging. PET/CT fusion images were obtained in axial, coronal and sagittal planes. FINDINGS: NECK/CHEST: There is no abnormal tracer uptake in the neck. No cervical lymphadenopathy is demonstrated. There is no abnormal mediastinal, hilar or lung uptake. No axillary lymph node enlargement is demonstrated. ABDOMEN/PELVIS: There is no abnormal tracer uptake within the liver, spleen, and adrenal glands. Prominent physiologic tracer uptake of the urinary tract is noted. Moderate physiologic intestinal uptake is also demonstrated. MUSCULOSKELETAL: There is no significant abnormal tracer uptake of the visualized bony structures. The previous Sodium fluoride Bone PET imaging showed increased uptake at the upper sternum and the right temporo-occipital skull, however, this conventional FDG PET scan did not show abnormal tracer uptake in those areas. This could be possibly due to difference in choice of isotope. IMPRESSION: UNREMARKABLE FDG PET IMAGING CPT Code 1: 01298 ICD-10 : C90.0 Dictation Location: [facility] Transcribed By: GIOVANNA 11/17/17 1008 Dictated By: Talha Dexter MD 11/16/17 1541 Signed By: <Electronically signed by MD Talha Dexter in OV> 11/17/17 1008 Author Tracey Bah [facility] HospitalAuthoredJuly 2017 10:21amReportDictated Date/TimeDictated ByStatusRadiology ReportJuly 2017 10:21Obie [facility]aBar[facility] Main [place] [address] [place] [address] XRay Report Signed Patient: Mojgan Snider MR#: [id number] : 1955 Acct:[id number] Age/Sex: 62 / F ADM Date: 8 Loc: Room: Type: [facility] Attending Dr: Fabiola Marinelli MD Ordering Provider: Fabiola Marinelli MD Date of Service: 05/31/18 XR/XR bone survey: smoldering myeloma right shoulder, hand, hip pain Copies to: Fabiola Marinelli MD~ SKELETAL SURVEY CLINICAL DATA: Left-sided neck, bilateral shoulder, low back and right hand pain. History of smoldering multiple myeloma. COMPARISON: PET/CT 11/16/2017 AP and lateral views of the skull and spine were obtained along with AP imaging of the ribs, pelvis and all 4 extremities There is osteopenia. There is slight cervicothoracic scoliosis. No acute compression fractures or displacement are seen. There are degenerative changes throughout the spine. Additional mild degenerative changes are visualized at the knees where there is joint space narrowing and marginal spurring, both shoulders including the acromioclavicular joints and greater tuberosities and the wrists. No lytic or blastic bone lesions are noted. Moderate atherosclerotic disease is seen. There are no acute cardiopulmonary findings or intra-abdominal abnormalities. IMPRESSION: OSTEOPENIA AND DEGENERATIVE CHANGES. NO EVIDENCE OF LYTIC OR BLASTIC BONE LESIONS. Dictation Location: [id number] Transcribed By: GIOVANNA 05/31/18 1029 Dictated By: Tracey Bah MD 05/31/18 1021 Signed By: <Electronically signed by Tracey Bah MD in OV> 05/31/18 1029 Author Jorge Duffy [facility] HospitalAuthoredAupresbyterian medical center-rio ranchot 2018 3:35pmReportDictated Date/TimeDictated ByStatusRadiology ReportAupresbyterian medical center-rio ranchot 2018 3:35pmJorge Duffy [facility] Main [place] [id number] XRay Report Signed Patient: Mojgan Snider MR#: [id number] : 1955 Acct:[id number] Age/Sex: 63 / F ADM Date: 9 Loc: XT Room: Type: [facility] Attending Dr: Fabiola Marinelli MD Ordering Provider: Fabiola Marinelli MD Date of Service: 07/01/19 XR/XR bone survey: smoldering myeloma, hip and thigh pain Copies to: Fabiola Marinelli MD~ Plain film bone survey HISTORY: Small layering myeloma. Hip and thigh pain. COMPARISON: 05/31/18 Osteopenia identified. Mild scoliosis is seen. No compression fracture identified. Degenerative changes seen throughout the spine. Additional mild degenerative changes of the knees and shoulders and wrists redemonstrated. No lytic or blastic lesion identified. Moderate atherosclerosis is seen. No acute cardiopulmonary findings are intra-abdominal abnormality seen. XR/XR bone survey IMPRESSION: Osteopenia and degenerative changes. No lytic or blastic lesion. Impression dictated by: Jorge Duffy M.D.07/01/2019 3:41 PM Dictation Location: STRUB-PACS Transcribed By: [facility] 07/01/19 1541 Dictated By: Jorge Duffy DO 07/01/19 1535 Signed By: <Electronically signed by Jorge Duffy DO in OV> 07/01/19 1541 Author Justus Frazier [facility] HospitalAuthoredMar 2019 3:11pmReportDictated Date/TimeDictated ByStatusRadiology ReportMarch 2019 3:11pmJustus Frazier II [facility] Main [address] [address] Nuclear Medicine Report Signed Patient: Mojgan Snider MR#: [id number] : 1955 Acct:[id number] Age/Sex: 64 / F ADM Date: 0 Loc: XT Room: Type: [facility] RCR Attending Dr: Fabiola Marinelli MD Ordering Provider: Fabiola Marinelli MD Date of Service: 01/02/20 PET/PET tumor subq tx strat wb: SMOLDERING MYELOMA, BONE PAIN Copies to: MD Vitaliy Downey MD Mark A Buehler, II, MD~ PET tumor subq tx strat wb 01/02/2020 2:27 PM SIGNS AND SYMPTOMS: SMOLDERING MYELOMA, BONE PAIN PROTOCOL: Whole body syndrome fluorine head imaging was obtained after intravenous radiotracer administration. Low-dose CT whole body was also performed. After attenuation correction of PET images, fused PET CT images were generated and reconstructed in axial, sagittal, and coronal plane. COMPARISON: 11/16/2017 RADIOPHARMACEUTICAL: 10.15 mCi of NaF FINDINGS: There are multiple focal areas of increased radiotracer accumulation with the calvarium, greater in the frontal bones and occipital bones. There are scattered focal areas of abnormal radiotracer accumulation throughout the cervical spine, thoracic spine, and lumbar spine. Multifocal radiotracer accumulation is noted within the sacrum, greatest at S1. There is increased radiotracer accumulation throughout the pelvis and hips. There are focal areas of increased radiotracer accumulation within the distal femur at the level of the knee. Focal abnormal radiotracer accumulation is noted within the medial weightbearing joint spaces bilaterally. Degenerative in nature. There are areas of focal radiotracer accumulation throughout the ankles, feet, wrists, shoulders which are presumed to be degenerative in nature. PET/PET tumor subq tx strat wb IMPRESSION: Multiple focal areas of abnormal radiotracer accumulation throughout the calvarium, cervical spine, thoracic spine, lumbar spine, and sacrum. There are also focal abnormal areas of radiotracer accumulation within the sternum, pelvis, proximal femurs, and distal femoral shafts. These are suspicious for a diffuse marrow replacing process, consistent with history of multiple myeloma. There are a few areas of increased radiotracer accumulation within the shoulders, wrists, knees, ankles, and feet which are presumed to be osteoarthritic in nature. Impression dictated by: Justus Frazier M.D.01/02/2020 3:31 PM Dictation Location: [facility] Transcribed By: GIOVANNA 01/02/20 153 Dictated By: Justus Frazier II, MD 01/02/20 1511 Signed By: <Electronically signed by Justus Frazier II, MD in OV> 01/02/20 1531 Author Jorge Duffy [facility] HospitalAuthoProtestant Deaconess Hospital 2019 12:02pmReportDictated Date/TimeDictated ByStatusRadiology ReportFort Hamilton Hospital 2019 12:02pmApurva KatzKettering Health Preble Main [place] [address] [place] [address] XRay Report Signed Patient: Mojgan Snider MR#: [id number] : 1955 Acct:[id number] Age/Sex: 64 / F ADM Date: 0 Loc: Room: Type: [facility] Attending Dr: Fabiola Marinelli MD Ordering Provider: Silvestre Ahn MD Date of Service: 01/31/20 XR/XR pelvis 1-2V: abnormal pet Copies to: MD Silvestre Downey MD~ Single view of the pelvis plain film HISTORY:Abnormal PET/CT. Small during multiple myeloma COMPARISON:None SI joints are maintained. No hip fracture or dislocation is present. No acute bony findings identified. No focal soft tissue abnormality seen. No sclerotic lesions identified. Subtle areas of lucency throughout the proximal femurs identified. Additional subtle lytic lesions throughout the pelvis identified. XR/XR pelvis 1-2V IMPRESSION:Subtle lytic lesions of the pelvis and proximal femurs corresponding with PET/CT findings. 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 Impression dictated by: Jorge Duffy M.D.01/31/2020 12:10 PM Dictation Location: [place] Transcribed By: GIOVANNA 01/31/20 1210 Dictated By: Jorge Duffy DO 01/31/20 1202 Signed By: <Electronically signed by Jorge Duffy DO in OV> 01/31/20 1210 Author Jorge Duffy [facility] 2019 12:10pmReportDictated Date/TimeDictated ByStatusRadiology ReportMarch 2019 12:10pmYandy KatzBarney Children's Medical Center Main [place] [id number] XRay Report Signed Patient: Mojgan Snider MR#: [id number] : 1955 Acct:[id number] Age/Sex: 64 / F ADM Date: 0 Loc: XT [facility] Attending Dr: Fabiola Marinelli MD Ordering Provider: Silvestre Ahn MD Date of Service: 01/31/20 XR/XR femur BI: abnormal pet Copies to: MD Silvestre Downey MD~ 2 views of RIGHT and LEFT femur plain film COMPARISON: Burning pain in the lateral portion of LEFT hip. No injury. HISTORY: Abnormal PET/CT. No sclerotic lesion identified. No fracture or other acute bony findings identified.Subtle lucencies impression portions of the femurs identified may correspond with the PET/CT findings.Otherwise no definitive additional sclerotic lesions identified. Atherosclerosis noted.No soft tissue abnormality seen. XR/XR femur BI IMPRESSION: Possible subtle lytic lesions of the posterior portions of the femurs. No acute bony findings. Impression dictated by: Jorge Duffy M.D.01/31/2020 12:13 PM [facility]ictation Location[facility] Transcribed By: GIOVANNA 01/31/20 1213 Dictated By: Jorge Duffy DO 01/31/20 1210 Signed By: <Electronically signed by Jorge Duffy DO in OV> 01/31/20 1213 Author Jorge Duffy [facility] HospitalAuthoredJuly 2019 10:25amReportDictated Date/TimeDictated ByStatusRadiology ReportJuly 2019 10:25amApurva Katzfredonia regional hospitalAngelitaSELECT [facility]ICAL [facility] Main [address] [address] MRI Report Signed Patient: Mojgan Snider MR#: [id number] : 1955 Acct:[id number] Age/Sex: 64 / F ADM Date: 07/30/2 0 Loc: XT Room: Type: [facility] RCR Attending Dr: Fabiola Marinelli MD Ordering Provider: Fabiola Marinelli MD Date of Service: 05/31/20 MR/MR cervical spine wo con: myeloma with neck pain, r/o lytic lesion/unstable ([id number]) XR/XR pre/post mri xray: C90.00 Copies to: Fabiola Marinelli MD~ MRI cervical spine without contrast TECHNIQUE: Multiplanar T1 and T2-weighted imaging of the cervical spine obtained. HISTORY:Diffuse neck pain greater on the LEFT. 3 weeks duration. No injury. Assessment for lytic lesion. History of myeloma. COMPARISON:None Cervical lordosis is adequate. No listhesis identified in supine position. The craniocervical junction is unremarkable. C4-5 and C5-6 spondylosis is present. Anterior endplate spurs identified. Mild posterior disc osteophyte complex identified. Central canal is patent. Neural foramen are patent. No disc herniation is identified. No cervical spine fracture or bone marrow edema is identified. The facets are in adequate alignment. The central canal is patent. The neuroforamen are patent. No obvious signal abnormality of the bone marrow or bony lesion identified. MR/MR cervical spine wo con IMPRESSION: C4-5 C5-6 spondylosis with mild posterior disc and osteophyte complex with resulting mild concavity of anterior thecal sac. No central canal stenosis or significant neural foraminal narrowing. No cervical cord abnormality. No obvious bony lesion or abnormality of the bone marrow. 3 views of the cervical spine Anterior plate spurring identified. Mild C4-5 and C5-6 disc space narrowing is present. Mild facet degeneration is seen. The bony neuroforamen are patent. IMPRESSION: Mid cervical degeneration. Impression dictated by: Jorge Duffy M.D.05/31/2020 10:39 AM [facility]ictation Location[facility] Transcribed By: GIOVANNA 05/31/20 1039 Dictated By: Jorge Duffy DO 05/31/20 1025 Signed By: <Electronically signed by Jorge Duffy DO in OV> 05/31/20 1039 Author Talha Dexter [facility] HospitalAuthoredJanuary 2020 11:13amReport Dictated Date/TimeDictated ByStatusRadiology ReportJanuary 2020 11:13am Talha Dexter [facility] Main [place] [address] [place] [address] XRay Report Signed Patient: Mojgan Snider MR#: [id number] : 1955 Acct:[id number] Age/Sex: 65 / F ADM Date: 1 Loc: Room: Type: [facility] Attending Dr: Fabiola Marinelli MD Ordering Provider: Fabiola Marinelli MD Date of Service: 11/19/20 XR/XR hand LT min 3V*: left index and thumb pain for one month Copies to: Fabiola Marinelli MD~ CLINICAL HISTORY: Pain at the left first and second digits for one month. No known injury. XR hand LT min 3V* COMPARISON: None FINDINGS: AP, lateral and oblique views of the left hand were obtained. There is no evidence of fracture, dislocation or bony erosion. Moderate osteoarthritis at the first carpometacarpal joint is noted. Mild to moderate degenerative arthritic changes are shown at multiple interphalangeal joints and metacarpophalangeal joints, more pronounced at the distal interphalangeal joints. Narrowing of the radial aspect of the radiocarpal joint space is also demonstrated, degenerative arthritic nature. XR/XR hand LT min 3V* IMPRESSION: MODERATE DEGENERATIVE ARTHRITIC CHANGES OF THE LEFT HAND, MORE PRONOUNCED AT THE FIRST CARPOMETACARPAL JOINT. Impression dictated by: Talha Dexter M.D.11/19/2020 11:19 AM Dictation Location: [facility] Transcribed By: GIOVANNA 11/19/20 1119 Dictated By: Talha Dexter MD 11/19/20 1113 Signed By: <Electronically signed by MD Talha Dexter in OV> 11/19/20 1119 Author Mansoor Vaca [facility] HospitalAuthoredMar 2020 3:33pmReportDictated Date/TimeDictated ByStatusRadiology ReportMarch 2020 3:33pmRichCarrol Chan Jr [facility] Main [address] [address] Nuclear Medicine Report Signed Patient: Mojgan Snider MR#: [id number] : 1955 Acct:[id number] Age/Sex: 65 / F ADM Date: Loc: XT Room: Type: [facility] Attending Dr: Fabiola Marinelli MD Ordering Provider: Fabiola Marinelli MD Date of Service: 01/14/21 PET/PET f-18 bone subq (nopr): restaging multiple myeloma Copies to: MD Vitlaiy Downey MD Patterson, Richard D Jr, MD~ Whole body PET-CT 01/14/2021. CLINICAL DATA: Multiple myeloma. TECHNIQUE: Nondiagnostic CT of the whole body was performed for anatomic localization and attenuation correction. Positron emission tomography (PET) of the whole body was then performed 1 hour after the intravenous administration of 10.2 mCi of F-18 sodium fluoride (Na-F). The CT and PET data sets were fused. COMPARISON: 01/02/2020. FINDINGS: There is redemonstration of foci of increased uptake consistent with multiple myeloma in the skull, in the sternum, at multiple levels in the cervical, thoracic, and lumbar spine, in the pelvis, and in both proximal femurs. When compared with the prior exam, these findings have not significantly changed. No new focus of increased uptake is definitely visualized. Degenerative-type activity is otherwise suspected in multiple locations, greatest at the right ankle and foot. Note is otherwise made of an Lneqhb-s-Hdvr on the right. Atherosclerotic disease is seen. The gallbladder is surgically absent. The uterus is also surgically absent. There is a suprapubic ventral hernia containing fat without acute complication. PET/PET f-18 bone subq (nopr) IMPRESSION: Relatively stable findings. Impression dictated by: Mansoor Vaca Jr., M.D.01/14/2021 7:09 PM Dictation Location: [place] [address] Transcribed By: [facility] 01/14/211908 Dictated By: Mansoor Vaca Jr, MD 01/14/21 1533 Signed By: <Electronically signed by Mansoor Vaca Jr, MD in OV> 01/14/211908 Author Mansoor Vaca [facility] 2020 9:18amReportDictated Date/TimeDictated ByStatusRadiology ReportJune 2020 9:18amCarrol Bunch Jr [facility] Main [place] [address] [place] [address] MRI Report Signed Patient: Mojgan Snider MR#: [id number] : 1955 Acct:[id number] Age/Sex: 65 / F ADM Date: 1 Loc: XT Room: Type: [facility] RCR Attending Dr: Fabiola Marinelli MD Ordering Provider: Fabiola Marinelli MD Date of Service: 04/03/21 MR/MR thoracic spine wo/w con: thoracic back pain Copies to: Fabiola Marinelli MD~ MRI thoracic spine 04/03/2021. CLINICAL DATA: Mid back pain. History of multiple myeloma TECHNIQUE: MRI of the thoracic spine was performed. COMPARISON: None. FINDINGS: There is mild thoracic spinal curvature. Vertebral alignment is normal. Disc space narrowing, discovertebral degenerative changes, and mild posterior disc bulging are identified. No significant thoracic spinal canal stenosis is seen. No spinal cord compression is visualized. No spinal cord signal abnormality or abnormal contrast enhancement is noted. No neural foraminal narrowing is identified on the right or left. No suspicious bony signal abnormality or abnormal enhancement is seen. The paraspinal soft tissues appear unremarkable. MR/MR thoracic spine wo/w con IMPRESSION: 1. Mild thoracic spinal curvature. 2. Disc space narrowing, discovertebral degenerative changes, and mild posterior disc bulging. 3. No significant thoracic spinal canal stenosis. 4. No suspicious bony signal abnormality or abnormal contrast enhancement. Impression dictated by: Mansoor Vaca Jr., M.D.04/04/2021 9:31 AM Dictation Location: [place] [address] Transcribed By: [facility] 04/04/21930 Dictated By: Mansoor Vaca Jr, MD 04/04/21917 Signed By: <Electronically signed by Mansoor Vaca Jr, MD in OV> 04/04/21930 Author Jorge Duffy [facility] HospitalAuthoredCatawba Valley [facility] Center 2020 2:18pmReportDictated Date/TimeDictated ByStatusRadiology ReportJune 2020 2:18pmYanyd KatzBarney Children's Medical Center Main [place] [address] [place] [address] Nuclear Medicine Report Signed Patient: Mojgan Snider MR#: [id number] : 1955 Acct:[id number] Age/Sex: 65 / F ADM Date: 1 Loc: Room: Type: [facility] Attending Dr: Fabiola Marinelli MD Ordering Provider: Fabiola Marinelli MD Date of Service: 04/22/21 PET/PET f-18 bone subq (nopr): restaging Copies to: MD Vitaliy Downey MD Ward, Jeffrey S DO~ PET/CT FUSION IMAGING CLINICAL INFORMATION: Multiple myeloma smoldering COMPARISON : 01/14/21 TECHNIQUE: Noncontrasted CT scan from the base of the skull to the upper thigh followed by PET imaging. Multiplanar PET/CT fusion images. 9.45 mCi of F-18 sodium fluoride administered. FINDINGS: There is redemonstration of foci of increased uptake consistent with multiple myeloma in the skull, sternum, multiple levels of the cervical, thoracic and lumbar spine the pelvis and in the proximal femurs. This is not significantly changed. No new focus of increased uptake identified. Degenerative uptake identified and multiple regions greatest in the RIGHT foot and ankle. Atherosclerosis noted. Cholecystectomy. Uterus is absent. Fat-containing supraumbilical ventral hernias. PET/PET f-18 bone subq (nopr) IMPRESSION: Stable findings. Impression dictated by: Jorge Duffy M.D.04/22/2021 2:23 PM Dictation Location: [place] [address] Transcribed By: [facility] 04/22/21 1423 Dictated By: Jorge Duffy DO 04/22/21 1418 Signed By: <Electronically signed by Jorge Duffy DO in OV> 04/22/21 1423 Author Mansoor Vaca [facility] HospitalAuthoredJune 2020 9:16amReportDictated Date/TimeDictated ByStatusRadiology ReportJune 2020 9:16amCarrol Bunch Jr [facility] Main [place] [id number] MRI Report Signed Patient: Mojgan Snider MR#: [id number] : 1955 Acct:[id number] Age/Sex: 65 / F ADM Date: 1 Loc: Room: Type: [facility] Attending Dr: Fabiola Marinelli MD Ordering Provider: Fabiola Marinelli MD Date of Service: 04/26/21 MR/MR cervical spine wo/w con: C90.00 Copies to: Fabiola Marinelli MD~ MRI cervical spine 04/26/2021. CLINICAL DATA: Neck pain. History of multiple myeloma. TECHNIQUE: MRI of the cervical spine was performed without and with intravenous contrast. COMPARISON: 05/31/2020. FINDINGS: Vertebral alignment is normal and the intervertebral disc spaces are intact. Discovertebral degenerative changes and posterior disc bulging are identified. There is mild central spinal canal stenosis with effacement of the anterior subarachnoid space at C5-C6. No other canal stenosis is seen. No spinal cord compression is visualized. No spinal cord signal abnormality or abnormal contrast enhancement is noted. No significant neural foraminal narrowing is identified on the right or left. No suspicious bony signal abnormality is seen. The paraspinal soft tissues appear unremarkable. MR/MR cervical spine wo/w con IMPRESSION: 1. Discovertebral degenerative changes and posterior disc bulging. 2. Mild central spinal canal stenosis at C5-C6. 3. No significant neural foraminal narrowing. Impression dictated by: Mansoor Vaca Jr., M.D.04/27/2021 9:23 AM Dictation Location: [place] [address] Transcribed By: [facility] 04/27/21922 Dictated By: Mansoor Vaca Jr, MD 04/27/21915 Signed By: <Electronically signed by Mansoor Vaca Jr, MD in OV> 04/27/21922 Author Jorge Duffy [facility] HospitalAuthoredSeptember 2020 1:24pmReport Dictated Date/TimeDictated ByStatusRadiology ReportSeptember 2020 1:24pm [facility] [place] [address] [place] [address] XRay Report Signed Patient: Mojgan Snider MR#: [id number] : 1955 Acct:[id number] Age/Sex: 65 / F ADM Date: 1 Loc: XT Room: Type: [facility] Attending Dr: Fabiola Marinelli MD Ordering Provider: Fabiola Marinelli MD Date of Service: 07/17/21 XR/XR knee RT 2V: multiple myeloma patient severe hip pain ([id number]) XR/XR hip RT min 2V(w/wo pelvis)*: multiple myeloma patient severe hip pain ([id number]) XR/XR femur RT 2V*: patient with Myeloma severe hip pain Copies to: Fabiola Marinelli MD~ 2 views of RIGHT femur plain film COMPARISON: None HISTORY: RIGHT buttocks pain with radiation of the knee. No fracture, dislocation or focal soft tissue abnormality seen.Atherosclerosis noted. XR/XR femur RT 2V* IMPRESSION: No acute bony findings. 2 views of the RIGHT knee Suprapatellar soft tissue prominence identified. No supra patellar effusion. Mild degenerative changes and marginal spurring and mild medial compartment joint space narrowing. No fracture or dislocation. Atherosclerosis. IMPRESSION: Degenerative change. 2 views of the RIGHT hip Hip joint space is adequate. Minimal marginal spurring present. No fracture or dislocation. Atherosclerosis. Chronic changes of the greater trochanter. IMPRESSION: Mild degeneration. Impression dictated by: Jorge Duffy M.D.07/17/2021 1:29 PM Dictation Location: [place] [address] Transcribed By: [facility] 07/17/21 1329 Dictated By: Jorge Duffy DO 07/17/21 1324 Signed By: <Electronically signed by Jorge Duffy DO in OV> 07/17/21 1329 Author Mansoor Vaca [facility] HospitalAuthoredSeptember 2020 4:52pmReport Dictated Date/TimeDictated ByStatusRadiology ReportSeptember 2020 4:52pm Carrol Bunch [facility] [place] [address] [place] [address] MRI Report Signed Patient: Mojgan Snider MR#: [id number] : 1955 Acct:[id number] Age/Sex: 65 / F ADM Date: 1 Loc: XT Room: Type: [facility] Attending Dr: Fabiola Marinelli MD Ordering Provider: Fabiola Marinelli MD Date of Service: 07/23/21 MR/MR femur RT wo/w con: Pain with weight bearing, abnormal Petscan Copies to: Fabiola Marinelli MD~ MRI right femur 07/23/2021. CLINICAL DATA: Right thigh pain. Abnormal PET-CT. History of multiple myeloma. TECHNIQUE: MRI of the right femur was performed without and with intravenous co ntrast. COMPARISON: Plain radiographs right hip, right femur, and right knee 07/17/2021. PET-CT 04/22/2021. FINDINGS: Review of sodium fluoride PET-CT performed 04/22/2021 demonstrates increased uptake in the head, neck, and greater trochanter of the proximal right femur. There are corresponding bony and adjacent soft tissue signal changes and enhancement in this location. Multiple myeloma is suspected. Prior PET-CT also demonstrated increased uptake in the supracondylar region of the distal right femur. No corresponding bony or soft tissue signal changes or enhancement are noted in this location. Note is otherwise made of relatively mild degenerative changes at the right hip and at the right knee. No fracture is identified. There are no findings suspicious for avascular necrosis at the hip. No evidence of iliopsoas or trochanteric bursitis is seen. MR/MR femur RT wo/w con IMPRESSION: Bony and adjacent soft tissue signal changes and enhancement suspi cious for multiple myeloma in the head, neck, and greater trochanter of the proximal right femur. Impression dictated by: Mansoor Vaca Jr., M.D.07/23/2021 7:26 PM Dictation Location: [place] [address] Transcribed By: [facility] 07/23/211925 Dictated By: Mansoor Vaca Jr, MD 07/23/21 165 Signed By: <Electronically signed by Mansoor Vaca Jr, MD in OV> 07/23/211925 Author Tarcey Bah [facility] 2020 2:30pmReportDictated Date/TimeDictated ByStatusRadiology ReportDece 2020 2:30pmObie Arizmendiheber valley medical centerdeeWVUMedicine [facility] [place] [address] [place] [address] XRay Report Signed Patient: Mojgan Snider MR#: [id number] : 1955 Acct:[id number] Age/Sex: 66 / F ADM Date: 1 Loc: XT Room: Type: [facility] Attending Dr: Fabiola Marinelli MD Ordering Provider: Fabiola Marinelli MD Date of Service: 10/04/21 XR/XR bone survey: restaging Multiple myeloma Copies to: Fabiola Marinelli MD~ METASTATIC BONE SURVEY - 19 images COMPARISON: 07/01/2019 CLINICAL DATA: Restaging of multiple myeloma. Headache and neck pain. AP and lateral views of the skull and spine were obtained along with AP images of the ribs, pelvis and all 4 extremities. There is osteopenia. No developing lytic or blastic bone lesions are identified. No fractures or dislocation are seen. There are degenerative changes at the spine. In the cervical region, there is endplate spurring and facet hypertrophy. The thoracic spine shows slight dextroscoliotic curvature and endplate spurring. The lumbar spine shows endplate spurring and facet hypertrophy. Degenerative changes are again noted at the knees, shoulders and inferior SI joints. Atherosclerotic disease is visualized. There are no acute intrathoracic or abdominal findings. Patient has a right-sided Nhkadk-j-Toen catheter. XR/XR bone survey IMPRESSION: NO OSTEOLYTIC LESIONS SUGGESTIVE OF MULTIPLE MYELOMA. Impression dictated by: Tracey Bah M.D.10/04/2021 2:43 PM Dictation Location: [place] [address] Transcribed By: [facility] 10/04/21 1443 Dictated By: Tracey Bah MD 10/04/21 1430 Signed By: <Electronically signed by MD Tracey Bah in OV> 10/04/21 1443 Author Justus Frazier [facility] HospitalAuthoredMountain Point Medical Center 2021 12:24pmReportDictated Date/TimeDictated ByStatusRadiology ReportApril 2021 12:24pmJustus Frazier II [facility] [place] [id number] XRay Report Signed Patient: Mojgan Snider MR#: [id number] : 1955 Acct:[id number] Age/Sex: 66 / F ADM Date: 2 Loc: Room: Type: [facility] Attending Dr: Fabiola Marinelli MD Ordering Provider: Fabiola Marinelli MD Date of Service: 02/05/22 XR/XR chest 2V*: increased SOB and congestion, fatigued Copies to: Fabiola Marinelli MD~ XR chest 2V* 02/05/2022 10:38 AM SIGNS AND SYMPTOMS: increased SOB and congestion, fatigued PROTOCOL: Frontal and lateral radiograph of the chest COMPARISON: 11/07/2021 FINDINGS: The trachea is midline. There is a right-sided Usqoid-s-Bfal which is unchanged. Atherosclerotic changes are noted in the thoracic aorta. The heart and mediastinal structures are within normal limits. The lung parenchyma is clear. The bony thorax is intact. Degenerative changes are noted in the shoulders and thoracic spine. XR/XR chest 2V* IMPRESSION: No acute cardiopulmonary pathology. Chronic findings are redemonstrated, as above. Impression dictated by: Justus Frazier M.D.02/05/2022 12:25 PM Dictation Location: [place] [address] Transcribed By: [facility] 02/05/22 1225 Dictated By: Justus Frazier II, MD 02/05/22 1224 Signed By: <Electronically signed by Justus Frazier II, MD in OV> 02/05/22 1225 Author Tracey Bah [facility] HospitalAuthoredJune 2021 4:32pmReportDictated Date/TimeDictated ByStatusRadiology ReportJune 2021 4:32pDoris Bah [facility] [address] [address] Nuclear Medicine Report Signed Patient: Mojgan Snider MR#: [id number] : 1955 Acct:[id number] Age/Sex: 66 / F ADM Date: 2 Loc: XT Room: Type: [facility] Attending Dr: Fabiola Marinelli MD Copies to: MD Vitaliy Downey MD Karen S Sheehan, MD~ Ordering Provider: Fabiola Marinelli MD Date of Service: 04/30/22 PET/PET f-18 bone subq (nopr): abnormal in 2020,normal skeletal survey PET F-[address] FUSION CLINICAL DATA: Multiple myeloma COMPARISON: 04/22/2021 Following the intravenous administration of 9.3 mCi of F-18 imaging was performed from the top of the head to the feet. Spiral unenhanced CT was also performed for anatomic localization. The PET and CT images were fused. This CT exam was performed using one or more following dose reduction techniques: Automated exposure control, adjustment of the mA and/or kV according to patient size, or use of iterative reconstruction technique. There are continued scattered foci of increased uptake throughout the skeletal system in a distribution similar to the prior. No definite new abnormal increased uptake is seen. There are some degenerative changes involving the spine and peripheral joints. There is moderate atherosclerotic disease. Granulomatous changes are present. No acute pulmonary findings are identified. The heart is borderline enlarged. There is a infra umbilical ventral hernia containing fat. PET/PET f-18 bone subq (nopr) IMPRESSION: SIMILAR FINDINGS TO THE COMPARISON STUDY Impression dictated by: Tracey Bah M.D.04/30/2022 4:51 PM Dictation Location: [place] [address] Transcribed By: [facility] 04/30/221650 Dictated By: Tracey Bah MD 04/30/22 163 Signed By: <Electronically signed by MD Tracey Bah in OV> 04/30/221650 Author Justus Frazier [facility] HospitalAuthoredJanuary 2022 2:23pmReportDictated Date/TimeDictated ByStatusRadiology ReportJanuary 2022 2:23pmJustus Frazier II [place] [address] CT Scan Report Signed Patient: Mojgan Snider MR#: [id number] : 1955 Acct:[id number] Age/Sex: 67 / F ADM Date: 3 Loc: XT Room: Type: [facility] Attending Dr: Fabiola Marinelli MD Copies to: Fabiola Marinelli MD~ Ordering Provider: Fabiola Marinelli MD Date of Service: 12/01/22 CT/CT sinus wo con: frequent headaches CT sinus wo con 12/01/2022 10:52 AM SIGN AND SYMPTOMS: Headaches, facial pressure and puffiness TECHNIQUE: Multidetector CT axial slices of the sinuses were obtained without IV contrast. Coronal reformats were generated and reviewed to further define anatomy and possible pathology. CT was performed with one or more of the following dose reduction techniques: Automated exposure control, adjustment of the mA and/or kV according to patient size, or use of iterative reconstruction technique. COMPARISON: None. Turbinates: There is adriana bullosa of the right middle nasal turbinate with a peritonsillar target along the anterior left middle nasal turbinate. Septum: There is 5 mm of rightward shift of the nasal septum. Sinuses and drainage pathways: Right: Frontal sinus and frontal recess: Well aerated. Maxillary sinus: There is mild polypoid mucosal thickening in the right maxillary sinus. This measures 3 mm in greatest thickness. Ethmoid sinuses: Well aerated. Ostiomeatal complex: Patent. Spehnoid sinus: Well aerated. Sphenoethmoidal recess: Well aerated. Left: Frontal sinus and frontal recess: Well aerated. Maxillary sinus: Well aerated. Ethmoid sinuses: Well aerated. Ostiomeatal complex: Patent. Sphenoid sinus: Well aerated. Sphenoethmoidal recess: Well aerated. Anatomic variations: Significant variations. Orbits: Within normal limits. Anterior cranial fossa: No acute findings. CT/CT sinus wo con IMPRESSION: There is mild polypoid mucosal thickening in the right maxillary sinus. This measures 3 mm in greatest thickness. The paranasal sinuses are otherwise well aerated. There is adriana bullosa of the right middle nasal turbinate with a peritonsillar target along the anterior left middle nasal turbinate. There is 5 mm of rightward shift of the nasal septum. Impression dictated by: Justus Frazier M.D.12/01/2022 2:32 PM Dictation Location: [facility]07 Transcribed By: GIOVANNA 12/01/22 1432 Dictated By: Justus Frazier II, MD 12/01/22 1423 Signed By: <Electronically signed by Justus Frazier II, MD in OV> 12/01/22 1432 Author Carroll Sparrow [facility] HospitalAuthoredApril 2022 4:29pmReportDictated Date/TimeDictated ByStatusRadiology ReportApril 2022 4:29pmJokya Sparrow Jr DOcompKettering Health [facility] [place] [address] [place] [address] XRay Report Signed Patient: Mojgan Snider MR#: [id number] : 1955 Acct:[id number] Age/Sex: 67 / F ADM Date: 3 Loc: Room: Type: [facility] Attending Dr: Fabiola Marinelli MD Copies to: Fabiola Marinelli MD~ Ordering Provider: Fabiola Marinelli MD Date of Service: 02/18/23 XR/XR femur RT 2V*: right hip pain and leg pain ([id number]) XR/XR hip RT min 2V(w/wo pelvis)*: right hip and leg pain RIGHT HIP - 2 views: Right femur 2 views CLINICAL HISTORY: Multiple myeloma right hip and leg pain COMPARISON: MRI right femur 07/23/2021 FINDINGS: No aggressive appearing lesion is seen. Vascular calcifications are noted. Mild soft tissue swelling anteriorly. Mild degenerative changes of the right hip. Degenerative changes are also noted involving the visualized knee joint. XR/XR hip RT min 2V(w/wo pelvis)* IMPRESSION: NO AGGRESSIVE APPEARING LESION IS SEEN. DEGENERATIVE CHANGES OF THE VISUALIZED JOINTS. MILD ANTERIOR SOFT TISSUE SWELLING... Impression dictated by: Carroll Sparrow Jr., D.O.02/18/2023 4:33 PM Dictation Location: [facility]12 Transcribed By: GIOVANNA 02/18/23 1633 Dictated By: Carroll Sparrow Jr, DO 02/18/23 1629 Signed By: <Electronically signed by Carroll Sparrow Jr, DO in OV> 02/18/23 1633 Author Justus Frazier [facility] HospitalAuthoredMay 2022 3:16pmReportDictated Date/TimeDictated ByStatusRadiology ReportMay 2022 3:16pmJustus Frazier II [place] [address] Nuclear Medicine Report Signed Patient: Mojgan Snider MR#: [id number] : 1955 Acct:[id number] Age/Sex: 67 / F ADM Date: 3 Loc: XT Room: Type: [facility] Attending Dr: Fabiola Marinelli MD Copies to: MD Justus Downey II, MD~ Ordering Provider: Fabiola Marinelli MD Date of Service: 03/09/23 PET/PET f-18 bone subq (nopr): restaging PET f-18 bone subq (nopr) 03/09/2023 12:42 PM SIGNS AND SYMPTOMS: History of multiple myeloma PROTOCOL: PET images were obtained after intravenous radiotracer administration from the top of the skull through the feet. Low-dose CT of the same anatomy was performed. After attenuation correction of PET imaging, fused PET CT images were generated and reconstructed in axial, sagittal, and coronal planes. COMPARISON: 03/30/2022 RADIOPHARMACEUTICAL: 10.31 mCi of intravenous fluorine 18 sodium fluoride FINDINGS: There is diffuse abnormal increased radiotracer accumulation throughout the calvarium, spine, sternum, clavicles, shoulders, distal humerus, proximal radius and ulna, pelvis, femurs, left tibia, and bilateral feet. This is similar to that seen on the prior exam and consistent with diffuse marrow infiltrative process/history of multiple myeloma. No new areas of abnormal radiotracer accumulation are appreciated. There is physiologic radiotracer accumulation in the kidneys and bladder. PET/PET f-18 bone subq (nopr) IMPRESSION: Relatively diffuse patchy abnormal radiotracer accumulation is noted throughout the skeletal structures. This is similar to that seen on the prior exam and consistent with diffuse marrow infiltrative process/history of multiple myeloma. No new areas of abnormal radiotracer accumulation are appreciated. Impression dictated by: Justus Frazier M.D.03/09/2023 3:22 PM Dictation Location: [facility] Transcribed By: GIOVANNA 03/09/23 1522 Dictated By: Justus Frazier II, MD 03/09/23 1516 Signed By: <Electronically signed by Jsutus Frazier II, MD in OV> 03/09/23 1522 Author Tracey Bah [facility] HospitalAuthoredFort [facility] 2023 2:46pmReportDictated Date/TimeDictated ByStatusRadiology ReportFort Hamilton Hospital 2023 2:46pmObie ArizmendiompKettering [place] [address] XRay Report Signed Patient: Mojgan Snider MR#: [id number] : 1955 Acct:[id number] Age/Sex: 68 / F ADM Date: 4 Loc: Room: Type: [facility] Attending Dr: Fabiola Marinelli MD Copies to: Fabiola Marinelli MD~ Ordering Provider: Fabiola Marinelli MD Date of [...] 2:47 PM Dictation Location: [facility]14 Transcribed By: GIOVANNA 01/21/24 1447 Dictated By: Tracey Bah MD 01/21/24 1446 Signed By: <Electronically signed by MD Tracey Bah in OV> 01/21/24 1447 Author Carroll Sparrow [facility] HospitalAuthoredFort [facility] 2023 6:07pmReportDictated Date/TimeDictated ByStatusRadiology ReportFort Hamilton Hospital 2023 6:07pmJokya Sparrow Jr DOcompKettering Health [facility] [place] [address] [place] [address] CT Scan Report Signed Patient: Mojgan Snider MR#: [id number] : 1955 Acct:[id number] Age/Sex: 68 / F ADM Date: 4 Loc: [facility] Dr: Fabiola Marinelli MD Copies to: Fabiola Marinelli MD~ Ordering Provider: Fabiola Marinelli MD Date of Service: 01/25/24 CT/CT sinus wo con: D84.9 - Immunodeficiency, unspecified CT PARANASAL SINUSES WITHOUT CONTRAST: CLINICAL HISTORY: Cough and congestion for one month COMPARISON: None TECHNIQUE: Contiguous axial unenhanced images were obtained through the paranas al sinuses. Coronal reconstructions were also performed. This [...] grossly unremarkable. CT/CT sinus wo con IMPRESSION: PANSINUSITIS. NO AGGRESSIVE FEATURES. Impression dictated by: Carroll Sparrow Jr., D.O.01/25/2024 6:14 PM Dictation Location: [place] [address] Transcribed By: [facility] 01/25/241813 Dictated By: Carroll Sparrow Jr, DO 01/25/24 180 Signed By: <Electronically signed by Carroll Sparrow Jr, DO in OV> 01/25/241813 Author Carroll Sparrow [facility] HospitalAuthoredFort [facility] 2023 6:23pmReportDictated Date/TimeDictated ByStatusRadiology ReportFort Hamilton Hospital 2023 6:23pmJosesavage Sparrow Jr DOcompKettering Health [facility] [place] [address] [place] [address] CT Scan Report Signed Patient: Mojgan Snider MR#: [id number] : 1955 Acct:[id number] Age/Sex: 68 / F ADM Date: 4 Loc: Room: Type: [facility] Attending Dr: Fabiola Marinelli MD Copies to: Fabiola Marinelli MD~ Ordering Provider: Fabiola Marinelli MD Date of [...] Sparrow Jr., D.O.01/25/2024 6:24 PM Dictation Location: [place] [address] Transcribed By: [facility] 01/25/241823 Dictated By: Carroll Sparrow Jr, DO 03/25/24 1823 Signed By: <Electronically signed by Carroll Sparrow Jr, DO in OV> 01/25/24 1824 Author Jorge Duffy [facility] HospitalAuthoredSeptember 21, 2024 4:02pmReport Dictated Date/TimeDictated ByStatusRadiology ReportSeptember 21, 2024 4:02pm Jayy KatzWVUMedicine [facility] [place] [address] Nuclear Medicine Report Signed Patient: Mojgan Snider MR#: [id number] : 1955 Acct:[id number] Age/Sex: 69 / F ADM Date: 4 Loc: XT Room: Type: [facility] Attending Dr: Fabiola Marinelli MD Copies to: MD Clive Downey Jeffrey S DO~ Ordering Provider: Fabiola Marinelli MD Date of Service: 09/21/24 PET/PET NaF bone subq (nopr): C90.00 - Multiple mye shelli not having achieved remission PET/CT FUSION IMAGING [...] 4:07 PM Dictation Location: [facility]16 Transcribed By: GIOVANNA 09/21/24 1607 Dictated By: Jorge Duffy DO 09/21/24 1602 Signed By: <Electronically signed by Jorge Duffy DO in OV> 09/21/24 1607 Author Carroll Sparrow [facility] HospitalAuthoredJune 2024 11:39amReportDictated Date/TimeDictated ByStatusRadiology ReportJune 2024 11:39amJosesavage Sparrow Jr DOcompKettering Health [facility] [place] [address] [place] [address] MRI Report Signed Patient: Mojgan Snider MR#: [id number] : 1955 Acct:[id number] Age/Sex: 69 / F ADM Date: 5 Loc: Room: Type: [facility] Attending Dr: Fabiola Marinelli MD Copies to: Fabiola Marinelli MD~ Ordering Provider: Fabiola Marinelli MD Date of [...] Jr., D.O. 04/17/2025 11:55 AM Dictation Location: [facility]- Transcribed By: PWS 04/17/25 1155 Dictated By: Carroll Sparrow Jr, DO 04/17/25 1139 Signed By: <Electronically signed by Carroll Sparrow Jr, DO in OV> 04/17/25 1155 Vital Signs Vital Reading Result Reference Range Collection Date/Time Height 62 [in_i] May 29, 2025 2:32lfSmglph12.40 kgJuly 2024 2:04pmHeart Rate76 /min 60-100July 2024 2:04pmBP Glqvohna72 mm[Hg]100-140July 2024 2:04pmBP Ivgvchdrb55 mm[Hg]60-100July 2024 2:04pmBMI (Body Mass Index)36.4 kg/m2 May 29, 2025 2:22qtKrfday29 [in_i]June 15, 2025 9:18ryKbqier07.09 kg June 15, 2025 10:37amBody Eslonzsnbrz93.8 [degF]97.6-99.0August 2024 9:34amHeart Rate79 /lvn59-994Iylkpp 2024 9:34amRespiratory rate16 /min 12-24August 2024 9:34amOxygen saturation by Pulse ozlmxnfg31 %95-100August 2024 9:34amBP Prmfmobn27 mm[Hg]100-140August 2024 9:34amBP Jqxupdeie55 mm[Hg]60-100August 2024 9:34amBMI (Body Mass Index)35.1 kg/m2 June 15, 2025 9:40asDvujlr90 [in_i]July 19, 2025 12:78cyGazbuo94.27 kgSeptember 2024 12:13pmBody Nhzhdexggew11.1 [degF]97.6-99.0September 2024 12:13pmHeart Rate77 /tlx65-815Mileovsxg 2024 12:13pmRespiratory rate18 /bel37-17Cvrxckzat 2024 12:13pmOxygen saturation by Pulse oximetry 96 %95-100September 2024 12:13pmBP Ksodxqei419 mm[Hg]100-140September 2024 12:13pmBP Gjbmwusnd94 mm[Hg]60-100September 2024 12:13pmHeight 62 [in_i]July 27, 2025 10:65fdAigvsl73.18 kgSept2024 10:26am Body Splwozfoikf88.7 [degF]97.6-99.0September 2024 10:26amHeart Rate77 /afu49-829Xfyhizcta 2024 10:26amRespiratory rate16 /wco30-26Vkjvjydfs 2024 10:26amOxygen saturation by Pulse zzsuhbks70 %95-100September 2024 10:26amBP Vjboszkz50 mm[Hg]100-140September 2024 10:26amBP Diastolic 65 mm[Hg]60-100September 2024 10:26amBMI (Body Mass Index)34.7 kg/m2 July 27, 2025 10:86svEfenvy13 [in_i]July 27, 2025 10:26amWeight 86.31 kgOctober 2024 8:15amBody Npzkpqencnp88.8 [degF]97.6-99.0October 2024 8:15amHeart Rate76 /wtd65-902Rmivjbk 2024 8:15amRespiratory rate16 /sgw01-76Jpollix 2024 8:15amOxygen saturation by Pulse svaxjoem01 % 95-100October 2024 8:15amBP Pghawqsj95 mm[Hg]100-140October 2024 8:15amBP Dkyvwvyac83 mm[Hg]60-100October 2024 8:15amInhaled oxygen flow rate2 L/minJuly 2020 8:45am Advance Directives Advance Directive Response Recorded Date/ Time Advance Directives No July 2:24pm Insurance Providers Guarantor Mojgan Snider Address [address] [place] [address] [place] [address]Cdhvzuy Info.Home Phone: Payer Policy Id Subscriber's Name Subscriber Id Effectiv e Date Expiration Date Medicaid [id number] Mojgan Weaver Snider [id number] S [id number] [id number] S [id number] Encounters Encounter Location(s) Arrival/Admit Date Discharge/Depart Date Provider(s) Departed Physician/Prov ider Office Visit -[facility] May 26, 2025 9:06am May 26, 2025 9:10am Ching Mcclendon APRN Departed Physician/Prov ider Office Visit -[facility] May 29, 2025 1:58pm May 29, 2025 2:30pm Mariza Sanchez DO Departed Clinical -[facility] May 30, 2025 8:32am May 30, 2025 8:33am Mariza Sanchez DO Departed [facility] [place] June 15, 2025 8:12am June 15, 2025 8:13am Ching Mcclendon APRN Departed Physician/Prov ider Office Visit [facility] June 15, 2025 9:29am June 15, 2025 11:30am Ching Rubalcava MD Departed [facility] July 19, 2025 9:55am July 19, 2025 9:56am Ching Mcclendon APRN Departed Emergency -Emergency Room July 19, 2025 11:40am July 19, 2025 4:13pm Departed Physician/Provider Office Visit-[facility] AmbulatorySeptember 2024 10:25amSeptember 2024 11:18Ching Burton MDDeparted Physician/Provider Office Visit-[facility] 2024 2:24pmOctober 2024 2:44pmChing Mcclendon APRNDeparted [facility] 7:42amOctober 2024 7:43am Ching Mcclendon APRNRegistered [facility] AcuteOctober 2024 7:59amAChing Tsai MD Recent Diagnosis Onset Date Admit Date Hepatocellular carcinoma Unknown May 292024 1:58pm 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) Unknown May 29, 2025 1:58pm Cancer associated pain Unknown June 152024 8:12am Hepatocellular carcinoma Unknown June 15, 2025 8:12am Multiple myeloma Unknown June 15 8:12am Nausea Unknown June 15 8:12am Bilateral leg pain Unknown June 15, 2025 9:29am Hemorrhoids, complicated Unknown June 15, 2025 9:29am Hepatocellular carcinoma Unknown June 15, 2025 9:29am Iron deficiency anemia Unknown June 152024 9:29am Bone marrow hypocellularity Unknown 2024 9:29am Cancer-related pain Unknown June 15, 2025 9:29am Encounter for antineoplastic immunotherapy Unkno June 15, 2025 9:29am Encounter for coordination of complex care Unkno June 15, 2025 9:29am 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 Un known June 15, 2025 9:29am 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) Unknown June 15, 2025 9:29a m Multiple myeloma Unknown June 15 9:29am 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 Unknown June 15, 2025 9:29am Cancer associated pain Unknown July 19, 2025 9:55am Hepatocellular carcinoma Unknown Septemb er 2024 9:55am Nausea Unknown July 19, 2025 9:55am Hemorrhoids, complicated Unknown Septemb er 2024 10:25am Hepatocellular carcinoma Unknown Septemb er 2024 10:25am Iron deficiency anemia Unknown July 27, 2025 10:25am Bone marrow hypocellularity Unknown Jul ember 2024 10:25am Cancer-related pain Unknown July 272024 10:25am Encounter for antineoplastic immunotherapy Unkno wn July 27, 2025 10:25am Encounter for coordination of complex care Unkno wn July 27, 2025 10:25am 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 Un known July 27, 2025 10:25am 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) Unknown July 27, 2025 10 :25am Multiple myeloma Unknown July 27, 2025 10:25am 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 Unknown July 27, 2025 10:25am Cancer associated pain Unknown August 022024 7:42am Hepatocellular carcinoma Unknown August 16, 2025 7:42am Multiple myeloma Unknown August 16, 025 7:42am Nausea Unknown August 16 7:42am Acute right hip pain Unknown August 7:59am Hematuria Unknown August 16 7:59am Acute thoracic back pain Unknown August 16, 2025 7:59am Bone marrow hypocellularity Unknown Octo sanjeev 2024 7:59am Cancer-related pain Unknown August 7:59am Chemotherapy-induced neutropenia Unknown August 16, 2025 7:59am Chronic copper deficiency Unknown Augobe r 2024 7:59am Degenerative cervical spinal stenosis Unknown August 16, 2025 7:59am Encounter for antineoplastic immunotherapy Unkno wn August 16, 2025 7:59am Encounter for chemotherapy management Unknown August 16, 2025 7:59am Encounter for coordination of complex care Unkno wn August 16, 2025 7:59am History of 2019 novel orta virus disease (COVID-19) Unknown August 16, 2025 7:59am 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 Un known August 16, 2025 7:59am Iron deficiency Unknown August 16 7:59am 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) Unknown August 16, 2025 7:59 am Multiple myeloma Unknown August 16, 025 7:59am Neutropenia, unspecified Unknown August 16, 2025 7:59am Obesity Unknown August 16 7:59am 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 Unknown August 16, 2025 7:59am Frontal sinusitis Unknown August 16, 2025 7:59am Diabetes mellitus Unknown August 16, 2025 7:59am Fibromyalgia Unknown August 16 7:59am 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, 2025 7:59am Assessments Diagnosis Onset Date Resolution Status Admit Date Hepatocellular carcinoma acuteJuly 2024 1:58pm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)chronicJuly 2024 1:58pmCancer associated painacuteAugust 2024 8:12amHepatocellular carcinomaacuteAugust 2024 8:12amMultiple myelomaacuteAugust 2024 8:12amNauseaacuteAugust 2024 8:12amBilateral leg painacuteAugust 2024 9:29amHemorrhoids, complicatedacuteAugust 2024 9:29amHepatocellular carcinomaacuteAugust 2024 9:29amIron deficiency anemiaacuteAugust 2024 9:29amBone marrow hypocellularitychronicAugust 2024 9:29amCancer-related painchronicAugust 2024 9:29amEncounter for antineoplastic immunotherapychronicAugust 2024 9:29amEncounter for coordination of complex carechronicAugust 2024 9:29am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chronicAugust 2024 9:29am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)chronicAugust 2024 9:29amMultiple myelomachronicAugust 2024 9:29am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 chronicAugust 2024 9:29amCancer associated painacuteSeptember 2024 9:55amHepatocellular carcinomaacuteSeptember 2024 9:55amNauseaacute July 19, 2025 9:55amHemorrhoids, complicatedacuteSeptember 2024 10:25amHepatocellular carcinomaacuteSeptember 2024 10:25amIron deficiency anemiaacuteSeptember 2024 10:25amBone marrow hypocellularitychronic July 27, 2025 10:25amCancer-related painchronicSeptember 2024 10:25amEncounter for antineoplastic immunotherapychronicSeptember 2024 10:25amEncounter for coordination of complex carechronicSeptember 2024 10:25am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chronicSeptember 2024 10:25am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)chronic July 27, 2025 10:25amMultiple myelomachronicSeptember 2024 10:25am 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chronicSeptember 2024 10:25amCancer associated painacuteOctober 2024 7:42amHepatocellular carcinomaacute August 16, 2025 7:42amMultiple myelomaacuteOctober 2024 7:42amNausea acuteOctober 2024 7:42amAcute right hip painacuteOctober 2024 7:59am HematuriaacuteOctober 2024 7:59amAcute thoracic back painchronicOctober 2024 7:59amBone marrow hypocellularitychronicOctober 2024 7:59am Cancer-related painchronicOctober 2024 7:59amChemotherapy-induced neutropeniachronicOctober 2024 7:59amChronic copper deficiencychronic August 16, 2025 7:59amDegenerative cervical spinal stenosischronicOctober 2024 7:59amEncounter for antineoplastic immunotherapychronicOctober 2024 7:59amEncounter for chemotherapy managementchronicOctober 2024 7:59am Encounter for coordination of complex carechronicOctober 2024 7:59am History of 2019 novel coronavirus disease (COVID-19)chronicOctober 2024 7:59am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chronicOctober 2024 7:59amIron deficiencychronicOctober 2024 7:59am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)chronicOctober 2024 7:59amMultiple myelomachronicOctober 2024 7:59amNeutropenia, unspecifiedchronicOctober 2024 7:59amObesitychronicOctober 2024 7:59am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chronicOctober 2024 7:59amFrontal sinusitisresolvedOctober 2024 7:59amDiabetes mellitusinactiveOctober 2024 7:59amFibromyalgia inactiveOctober th, 2025 7:59amSmoldering multiple myeloma (SMM)inactive August 16, 2025 7:59am Plan of Treatment Author Fabiola Marinelli 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 Second dose of Teclistamab weekly (08/17, 08/25, 09/01, 09/08) with changing threshold notification for platelets less than 35. She has not had any bleeding complications due to thrombocytopenia. She was scheduled for third cycle of weekly Teclistamab beginning 09/15/2023 but this was held due to positive COVID-19 infection on 09/12/2023. Plan to admit to 11/04/2023 for next cycle of Teclistamab (will need to observe for recurrent CRS due to significant delay since last dose) -- Resume IVIG 0.4 mg/kg every 3 months at [facility]--now monthly at --Previous doses held cycle 2-day 22 and 28 due to COVID, cycle 3-day 22 and 828 for persistent cough then restarted cycle 4-day 01 February 2024. Doses were changed from weekly to every other week 02/23/24. Doses were changed to every 3 weeks 05/24/2024. ------ -- Teclistamab-cqyv subcu 25 mg once every 3 weeks with dose modification 0.03 mg/kg dose 1 on 08/06/2023, then dose changed to 0.6 mg/kg (49 mg)--most recent records from 09/06/2025 with Teclistamab dose 117 mg (about 95% of standard dose 1.5 mg/kg) now every 3 weeks. -- Cycle 10-day 1: 100% dose 123 mg started 09/28/2024 at [facility]. Tolerated well, continue every 3-week therapy. -- No change in regimen 12/29/2024 follow-up. May need upcoming platelet transfusions for biopsy/microwave ablation of liver for suspected HCC if platelets less than 50,000. Stable neutropenia with ANC 500. Awaiting myeloma labs from today. --02/03/2025: ANC 900 and platelets 49,000. No indication for Teclistamab-cqyv dose reduction but she has a planned vacation leaving next Thursday and she will delay next Teclistamab by one week. Resume current dose with next f/u with me with myeloma labs in mid March. --06/15/2025: ANC 500, platelets 45,000. Patient request to defer next dose of Teclistamab-cqyv by 1 week due to planned travel in late June, returning July 03. Does not qualify for IVIG today due to IgG level 728 but will repeat next Thursday with platelet counts for planned platelet transfusion before hepatocellular carcinoma ablation (may give IVIG that day as well if she qualifies with IgG level less than 600). -- 07/27/2025: Liver ablation at [facility] 06/22/2025, then was able to resume Teclistamab therapy with most recent dose 07/13/2025. 07/20/2025 IVIG was held due to IgG level greater than 600. She will be due for next dose in 1 week and may receive both Teclistamab and IVIG as most recent IgG level was 525. ------ --IVIG 20 g about once every 4 to 6 weeks with hydrocortisone injections 100 mg each IVIG infusion. IVIG resumed for IgG less than 400 on most recent labs late August at [facility]. Currently receiving IVIG monthly at [facility] (IgG was 313 on last labs 12/29/2024). Held mid March 2025 for IgG in 800 range, will resume 04/20/2025 due to IgG back to 580. Continue monthly to every 6-week of therapy based on IgG level. 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 She has high risk cytogenetics and I sent her for consultation with Dr. Andre Benavidez at [facility] in 2016. Her persistent thrombocytopenia made her ineligible for any clinical trials, and prevented her from receiving local pain procedures given her chronic low back pain. --05/2017 PET/CT images and reports performed for staging to exclude bone involvement with myeloma. 2 indeterminate areas of uptake thought to be degenerative arthritis vs early bone findings of myeloma (right parietooccipital area and upper sternum). She has remained asymptomatic in these areas and we arranged repeat PET/CT at 6 months with CBC, CMP, SPEP and UPEP with immunofixation, serum kappa/lambda light chain analysis, and quantitative immunoglobulins. --No lytic lesion seen on f/u PET/CT 11/2017 and all labs stable. Also had head CT to evaluate for mastoiditis in 03/2018 unremarkable. 05/2018 skeletal survey showed no lytic lesions and she has stable shoulder, hand, and right SI joint pain (although likely due to fibromyalgia. --Prior osseous survey 07/01/2019 showed osteopenia but no compression fractures or lytic lesions were identified. She had no significant change in myeloma labs (mild increase of urine M-spike, kappa/lambda ratio, and normal serum M-spike and quant immunoglobulins). Urine protein still undetectable, therefore will continue surveillance every 6 months with the same labs--no hypercalcemia, renal dysfunction (or proteinuria), anemia, or new bone symptoms. --Due to COVID-19 epidemic, her 6-month follow-up was performed by telephone encounter 01/18/2020. Due to recurrent headaches and left hip pain we performed a F-18 PET/CT on 01/02/2020 which showed skull, cervical/thoracic/lumbar, and proximal femur lesions. Since I was unavailable Dr. Abel Cummings performed bone marrow biopsy which although showed a suboptimal specimen, 50% of plasma cells were consistent with multiple myeloma by CD138 staining. She also is found on plain films of the bilateral proximal femurs and pelvis to have lytic lesions which correspond to her left hip pain. --The patient was evaluated by Dr. Ahn of radiation oncology for palliative radiation to the bilateral femurs. She received one hypofractionated abbreviated course of radiation (800 cGy x 1) on 02/07/2020 to minimize exposures during COVID-19 epidemic. --The patient's myeloma labs (December 2019) do show normal quantitative immunoglobulins with IgA lambda monoclonal protein by immunofixation (serum IgA is 272). Her kappa/lambda ratio shows a predominance of free lambda 479 with elevated free kappa 23.6 and abnormal free kappa/lambda ratio of 0.05. Urine immunofixation also shows lambda type Bence-Murray proteins with urine M spike 43.1 but total protein 34.4, with no reported urine creatinine. --We deferred immunosuppressive chemotherapy for about 1 month due to control of symptoms after palliative radiation and concern of potential peak of COVID-19 in late January early March. --She presented for follow-up 03/05/2020 and we discussed potential therapy options (son available by phone). --I discussed her case with Dr. Andre Benavidez of malignant hematology, possibly presenting the patient in hematology tumor board at [facility]. --Infusion port placed 03/22/2020 at [facility] due to low platelets. No complications. --03/12/2020: Myeloma labs with no serum M-spike, + urine M spike 22.2mg/24h (14%). Immunofixation IgA lambda specificity. IgA normal 227, Serum kappa 20.6, serum lambda 516.7, Free kappa/lambda ratio 0.04. Normal renal function and calcium. Lower ANC 600 and platelets 40,000 --04/10/2020: Started cycle 1 day 1 of weekly dexamethasone 20 mg IV (careful to watch blood sugars with diabetes and known hepatic dysfunction), decreased dose of bortezomib 0.7 mg/m?? twice weekly for 2 weeks on 1 week off (due to known liver disease and thrombocytopenia), and daratumumab 8mg/kg D1,D2 IV first week, then 16 mg/kg IV weekly and we may consider Revlimid as a 4th medication if needed (deferred for worsening neutropenia and thrombocytopenia--I am reluctant to add this therapy initially). --------- --01/21/2021: One year f/u F18 PET/CT with stable FDG avidity, monoclonal labs (SPEP, Quant Igs, kappa/lambda ratio) all pending. Stable CBC and CMP. Persistent pain left hand 2nd MCP joint--increased uptake on PET/CT but no lesion on left hand xray from 11/2020. Sending for ortho evaluation. For now continue once monthly Daratumumab. F/u with myeloma labs and exam in 2 months, sooner prn. --05/24/2021: Bone marrow biopsy does not show significant progression although poor prognosis mutation 1q with 13q on FISH. Hypocellular with recent worsening platelets without bleeding--will recheck B12, folate, and ferritin. Cervical MRI showed some spinal stenosis, but neck pain is improved. No bone lesions on PET and prior neuropathy stable to mildly improved. I recommend continuing Daratumumab alone with f/u myeloma labs and f/u in 2 months, sooner prn. --07/17/2021: Mojgan presented with sudden onset right femur and hip pain since Thursday without history of trauma. She was sent for plain films of the hip femur and knee showing degenerative changes but no acute fracture. On 04/22/2021, she had F-18 PET/CT showing increased uptake at multiple foci including the pelvis and proximal femurs. I reviewed her case with Dr. Cheng who recommended right femur MRI for further evaluation to determine if she has an occult fracture or lytic lesion. If she is felt to have high risk disease on MRI she may require prophylactic femoral kenton. We reaffirmed with the patient she needed to be on strict nonweightbearing right leg and is ambulating with walker only. She will have follow-up with orthopedic surgery. --Prior bone marrow biopsy did not show significant progression although she still has slow rise in lambda light chain and platelet count remains in the 50,000 range. She has increased bruising but no bleeding. For now we will continue daratumumab and follow closely in 6 weeks with monoclonal gammopathy labs and to review recommendations from orthopedic surgery. --08/30/2021: Improvement of prior right hip pain after radiation therapy. Echo with normal ejection fraction and platelets stable at 52,000 without bleeding. I discussed her case with Dr. Benavidez who advised against Kyprolis due to her known liver disease. He recommended repeating loading doses of weekly daratumumab with low dose Revlimid (I will start with 5mg daily D 1-21 each 28 day cycle due to her thrombocytopenia). F/u 2 weeks for toxicity check. She will sign Revlimid consent Thursday. She is in agreement with this plan. --09/20/2021: Started daratumumab loading doses weekly with Revlimid on 09/04/2021. Held therapy for ANC 900 and platelet 42,000 with sinus infection, now resolved and resumed Revlimid 5mg daily on 09/17. Will continue therapy as prescribed with weekly CBC and hold Revlimid as needed for cytopenias. Evaluation [facility]. Send myeloma labs and skeletal survey in 2 weeks, f/u with me in 4 weeks. She agrees with this plan. --01/22/2022: No new symptoms but patient is not deemed a candidate for CAR-T therapy at this time. Gradual worsening lambda light chains reviewed with the patient. We will complete this cycle of daratumumab 16 mg/kg IV every 2 weeks and complete current cycle of Revlimid with change to pomalidomide 4 mg daily, follow weekly CBCs after change in therapy and determine optimal dose based on symptoms and cytopenias. Patient is in agreement with this plan. Next follow- up with me in 1 month and we will defer next light chain analysis until 1 month after change in therapy. --02/19/2022: Continued rise in lambda light chains and worsening thrombocytopenia. Today we reviewed informed consent for adding pomalidomide 3 mg daily days 1 through 21 every 28 cycle 2 every other week daratumumab. We are dropping Revlimid due to progression of disease and persistent thrombocytopenia. We are resending myeloma labs upon arrival of pomalidomide and continuing to hold Revlimid. Next follow-up will be cycle 1 week 3 of pomalidomide/daratumumab. No active bleeding with thrombocytopenia and okay to proceed with daratumumab with ANC 800, platelet count 58,000. Pomalidomide is dose reduced due to baseline liver dysfunction. -- 03/19/2022: Mojgan was only able to tolerate 5 days of pomalidomide 3 mg daily because she developed a diffuse rash with erythema and pruritus (grade 3). Therapy was stopped after initial cycle was only given 03/05-03/13/2022. --04/09/2022: Mojgan has not had any recurrent rash with lower dose of pomalidomide 2 mg daily. She is now day 14 and has platelet count 40,000 without bleeding. Otherwise she is tolerating therapy well without adverse effects. Her most recent labs for following myeloma show normal mild increase her free lambda from 87 to 106, kappa/lambda ratio decreased 0.10-0.09. I will give her 1 more month of pomalidomide with daratumumab and dexamethasone. The pomalidomide dose will be changed to 2 mg p.o. days 1 through 14, off days 15 through 28. Repeat her myeloma labs in 1 month with kappa/lambda light chain ratio. If worsening we may consider change in therapy (discussed with Avery Rivera, oncology pharmacy to potentially choose regimen with least probable thrombocytopenia). --05/07/2022: Mojgan is tolerating low-dose pomalidomide with now monthly daratumumab and weekly dexamethasone well. 1 year follow-up PET/CT from 04/30/2022 shows no new bony lesions. Her kappa/lambda light chain ratio remains relatively stable since early March (0.09- 0.11) with free lambda light chains now relatively stable (106-109). I advised continuing her current regimen and reevaluating with kappa/lambda light chain ratio in 2 months. Continue current dosing and close observation due to platelet count 48,000. No signs or symptoms of infection. Patient is in agreement with this plan. --07/10/2022: Mojgan has no new symptoms, but continued cytopenias with 2 weeks of pomalidomide held due to recurrent neutropenia and persistent thrombocytopenia (40-50,000). Continued uptrending lambda light chains consistent with progression of myeloma. We did discuss bone marrow biopsy, but this would not private branch exchange service advisor, therefore we will give Pomalyst (now decreased to 2mg Thursday and only) with last dose Daratumumab tomorrow. 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 Will f/u ECHO and consent for therapy tomorrow. Plan discussed with Dr. Benavidez Malignant Hematology--recommends no dose reduction of Cytoxan, but transfusion support as needed since cytopenias may be due to progression of malignancy. --08/20/2022: Mojgan is here for cycle 2 day 1 of Carfilzomib 27mg/m2 IV weekly, Cyclophosphamide 300mg/m2 IV weekly, and Dexamethasone 20mg IV/po weekly. Tolerating well without new side effects. Stable fatigue, no bleeding. Mild improvement of platelets without active bleeding, stable WBC with ANC 1000. Will continue current dosing of all meds and followup in 3 weeks with CBC, CMP, SPEP, VAHID, quantitative immunoglobulins, and kappa/lambda light chains (ok to see [employer]). --09/17/2022: Mojgan is here for cycle 3 of modified CYKLONE regimen. She continues to do ok with only mild fatigue, no other new complaints or s/s of infection. She is ok to treat per discussion with Dr. Marinelli despite low WBC, ANC and platelets. She will follow-up in 3 weeks with next cycle, sooner as needed. --12/26/2022: Cyclophosphamide 180mg/m2 IV weekly, Kyprolis 20mg/m2 IV weekly, and Dexamethasone 20mg weekly on hold with last dose 12/04/2022 due to persistent cytopenias and sinusitis. She now has ANC 900 and platelets 37,000 without bleeding. Relatively stable lambda light chains in 40s range. I will hold therapy another 2 weeks, give Augmentin 875mg bid x 2 weeks for persistent sinusitis (no air fluid levels on CT scan), and send referral to Dr. Benavidez for possible CD3/BCMA bispecific antibody therapy (risk of cytokine release syndrome with first dose, requires inpatient observation at a tertiary center). If consult is delayed and persistent cytopenias at 2 week followup, I may consider repeat bone marrow biopsy at that time. Moderate complexity 35 minute followup visit. --01/09/2023: Cytopenias improved. Hold Kyprolis/Cytoxan 2 more weeks, then resume lower dose Cyclophosphamide 120mg/m2 IV weekly, Kyprolis 20mg/m2 IV weekly, and Dexamethasone 20mg weekly. Lambda light chains now in 60s. Dr. Benavidez agrees with this plan. May be a future candidate for bispecific antibody Teclistamab (needs to be hospitalized first week due to risk of cytokine release syndrome). Next followup with myeloma labs in 2 months, sooner prn. 30 minute moderate complexity followup. --02/18/2023: No active therapy since 12/04/2022--platelets have not improved. Continued uptrending kappa light chains (now 60s range). 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 Worsening right hip/leg pain--repeat PET/CT to determine if bony progression (plain film without obvious lytic lesion right hip/femur). Will set up IR guided bone marrow biopsy to eval whether persistent cytopenias due to progression vs. therapy related MDS. Hold Kyprolis/Cytoxan and if no progression or MDS on bone marrow biopsy, we will resume lower dose Cyclophosphamide 120mg/m2 IV weekly, Kyprolis 20mg/m2 IV weekly, and Dexamethasone 20mg weekly. Moderate complexity 35 min. --03/11/2023: Persistent right hip pain followed by palliative medicine. Increasing doses of OxyContin 10 mg 4 times daily with gabapentin 400 mg once daily as needed. We are deferring repeat radiation of the right hip since she does not have any new findings on PET/CT and she had prior radiation 2 years ago. In reviewing her bone marrow biopsy she is noted to have hypocellular marrow 10% with only 4% clonal plasma cells in addition to a 12% atypical clonal B-cell population on flow cytometry. Given her hypocellularity and low percentage of plasma cells despite increasing lambda light chains on peripheral blood, we will continue to hold her cyclophosphamide, Kyprolis, and dexamethasone. She did receive 1 infusion of IVIG in early January mainly due to recurrent sinusitis but has not required any active antibiotics. This also did not improve her platelet count which is still 28,000. Due to hypocellular marrow we will send methylmalonic acid and homocystine to assess B12 and folate stores with copper and ceruloplasmin for copper storage. I will also send her iron stores to determine if trace element optimization may improve her cellularity. We will continue CBC every 2 weeks this month given her low platelet count then if stable we will continue CBC monthly and follow-up with her in 3 months with CBC, CMP, quantitative immunoglobulins and kappa/lambda light chains. She may return sooner if new issues arise. High complexity 45- minute visit for review of bone marrow biopsy, imaging, complex medical testing, discussion of plan. --06/10/2023: Stable right hip pain and neuropathy. Off active therapy with cyclophosphamide, Kyprolis, and dexamethasone since 12/2022. Platelet count still 28,000 without active bleeding. Hemoglobin stable at 10 but worsening WBC 1700 with ANC 1000. Rising lambda light chains and kappa/lambda ratio 0.06. She will see Dr. Lindquist--requested change to virtual visit tomorrow due to family emergency. He will call me after the visit with his recommendations. Consider bispecific antibodies or CAR-T option if these are available options. If no active therapy, continue labs every 6 weeks, visit every 3 months. Moderate complexity 35 minute followup. --07/08/2023: Mojgan returns for 1 month follow-up and lab review. She remains off active chemotherapy but completed a virtual consult with Dr. Lindquist on 06/26/2023. In reviewing his note, he discussed potential candidacy for by specific antibody therapy or CAR-T cell therapy for prolonged remission. He felt that she may require a repeat bone marrow biopsy as her prior bone marrow biopsy may have underestimated her marrow involvement as it may have been in an area that was previously radiated. We reviewed labs from today showing gradually worsening leukopenia over the last 3 months with now absolute neutropenia ANC 800 without any recent infections. Platelet count is now down to 26,000 without active bleeding but marked bruising of the extremities. Hemoglobin is stable at 10.5 with normal renal function and calcium. She has a scheduled in person follow-up with Dr. Supa Lindquist on 07/23/2023 where she will review potential eligibility for these novel therapies that are not available at [facility]. We did discuss potential risk of cytokine release syndrome with by specific antibody therapy that would require a short hospital admission at [facility]. For now we set up a follow-up visit in 3 months with myeloma laboratories, sooner if requested by Dr. Lindquist. Patient is in agreement with this plan over this 35-minute moderate complexity visit for coordination of care with [facility]. --10/21/2023: As summarized in the HPI, Mojgan has been on active therapy with Dr. Lindquist of malignant hematology at [facility] since initiation of Teclistamab by specific antibody for refractory myeloma. This was initiated 08/04/2023 with inpatient admission for ramp-up phase. She had grade 1 CRS (fevers) and ICANS (suzanna ICE score 8/10). She then received cycle 2-day 1 weekly at [facility] from 08/17 through last dose 09/08/2023. Her third cycle was delayed due to positive COVID-19 on 09/12/2023 treated with Paxlovid in [place]. She was to resume therapy with Teclistamab on 10/13 but had a recurrent sinus infection treated with antibiotics and steroids by Dr. Lindquist. She received IVIG 09/22/2023 at [facility] for IgG level less than 400. We wrote orders today to resume IVIG here in [place] due to her recurrent infections and persistent pancytopenia (ANC 1000, platelets 35-40,000) secondary to known liver disease/SALGADO cirrhosis. -- We are unable to deliver Teclistamab therapy locally due to pharmacy control issues and she will continue Teclistamab at [facility]. I personally spoke to Dr. Lindquist by phone and he plans to readmit her 11/04/2023 due to risk of recurrent CRS and ICANS since it has been over 6 weeks since last dose. IVIG orders written here today. She will remain on 3 times weekly Bactrim DS for PCP prophylaxis, acyclovir 400 mg twice daily for VZV prophylaxis. We will continue to follow her with myeloma labs CBC, CMP, quantitative immunoglobulins and kappa/lambda light chains every 3 months and primary follow-up for myeloma will be at [facility]. High complexity 1 hour visit. -- 01/21/2024: Updated history from [facility] from patient, notes scanned in, and telephone conversation with Dr. Fraser. Continues monthly IVIG (most recent one week ago). We discussed potentially resuming fungal prophylaxis due to persistent cough and infectious workup below. Teclistamab on hold per Dr. Fraser. Continue regular followup at . Virtual followup of CT sinus and chest when complete (1-2 weeks) and pulmonary medicine consult for possible bronchoscopy. Patient agrees with this plan. After virtual followup to review imaging, I will follow locally in 3 months to coordinate local care. 45 minute high complexity visit. --06/29/2024: Follow-up for malignant myeloma in pancytopenia secondary to cirrhosis from steatohepatitis with Dr. Lindquist. She continues Teclistamab therapy every 3 weeks at [facility] with IVIG infusions. Since last visit with me she had hospitalization for sepsis due to spontaneous bacterial peritonitis. 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 I reviewed her most recent myeloma labs showing undetectable kappa and lambda light chains, M spike unable to detect due to hypoalbuminemia, and undetectable IgM and IgA with IgG reflecting her monthly IgG infusions. She has not had a follow-up bone marrow biopsy since start of therapy. Her last restaging PET/CT was over a year ago and I will order whole-body exam and F-18 PET/CT and forward results to Dr. López. I am investigating with our brass roller whether we can transition her Teclistamab infusions to [facility] if we are able to obtain supply of the medication and coverage by insurance. I will communicate with Dr. López whether it is feasible to transition her care locally prior to the winter months. If she continues follow-up in [place] we will follow with her every 6 months for local supportive care. We have also reviewed notes from gastroenterology, pulmonary medicine, palliative care, and outside notes from [facility]. High complexity 45-minute visit with 30 minutes coordination of care. --09/15/2024: Patient has been followed at [facility] for Teclistamab therapy, but now that she has been stable for over a year and we have appropriate licensing and in-service here [facility], we will transfer Teclistamab therapy for primary follow-up at [facility]. Orders are written to proceed next week with full dose 123 mg every 3 weeks. She will also receive IVIG every 4 to 6 weeks if IgG less than 400. She has rescheduled her F-18 PET/CT several times due to persistent cough but we will give Valium preprocedure. Cough is improved since stopping lisinopril therapy. She will follow-up in 2 weeks to review tolerance of therapy here and results of myeloma labs and PET/CT, then we will likely follow every 6 weeks on therapy. High complexity 45-minute follow-up for transfer of care and utilization of novel bi-specific T-cell effector cell (BiTE) therapy. [id number] additional 30 minutes preparation of orders and review of outside laboratories and documentation of Teclistamab therapy at [facility]. --10/05/2024: Here for follow-up after initial dose of Teclistamab therapy at [facility] 09/28/2024. She tolerated this well with no concerning symptoms from last visit 3 weeks ago. Laboratories reviewed showing stable leukopenia wth ANC 800 and no signs or symptoms of infection. Hemoglobin stable at 9.9, platelet count stable at 53,000 without bleeding. Normal renal and hepatic function. [place] and lambda light chains are below the limits of detection therefore these will be followed about every 3 months. IgG is up to 594 and she does not require IVIG today. Will check quantitative immunoglobulins with CBC and CMP every 6 weeks and follow-up about every 6 weeks with every 3-week dosing of Teclistamab. Her PET/CT was stable from prior PET with no new areas of bony involvement. Recent liver ultrasound with possible mass lesion that is pending MRI liver ordered by Dr. Sanchez later this month we will follow-up with patient. Likely will have a screening AFP at that time as well. Follow-up with me in 6 weeks with labs and exam. She may return sooner if new issues arise. High complexity 45-minute follow-up to review toxicities on Teclistamab, labs, recent liver ultrasound, and PET/CT for restaging myeloma. --11/16/2024: Patient is tolerating Teclistamab therapy well with exception of cytopenias, ANC 600 without infection. Stable platelet count 51,000. At this time we are continuing Teclistamab while pending workup for hepatocellular carcinoma noted below. Her quantitative immunoglobulins are pending and we stopped sending kappa/lambda light chain due to undetectable levels in September. Okay to send for myeloma labs in 3 months with serum protein electrophoresis with immunofixation, quantitative immunoglobulins, and kappa/lambda light chain analysis at that time. We will see her sooner after her evaluations at [facility] as noted below. High complexity 45-minute follow-up of multiple comorbidities. --12/29/2024: Here for Teclistamab and follow-up labs were drawn this morning therefore we do not have them for review. Stable neutropenia with white blood cell count 2000, ANC 900. Normal creatinine 1, calcium 9.2. Addressed leg pain over the last few weeks with labs showing iron deficiency therefore we will arrange Injectafer infusions as noted below. Quantitative immunoglobulins and kappa/lambda light chains repeated with labs today and will be reviewed when she returns for her next follow-up in about 6 weeks after her hepatic ablation procedure. We are coordinating platelet transfusion if needed if next Thursday CBC shows platelets less than 50,000. She may return sooner if new issues arise. High complexity 45-minute follow-up of multiple core morbidities, coordination of care with her [facility]'s upcoming procedure and new diagnosis of iron deficiency with leg pain coordinating Injectafer infusions. --02/03/2025: Her last Teclistamab dose was 01/19/2025 with subsequent labs 01/30/2025 showing white blood cell count 2400, ANC 900, hemoglobin improved to 11.4, platelet count slightly lower at 49,000 without bleeding issues. She received Venofer last month with improvement of iron saturation from 7.8 to now 33.7 and ferritin from 9.9 to now 674. Liver function test showed normal total bilirubin, normal ALT and AST, but mildly elevated alkaline phosphatase around the time of teclistimab dose. She has planned trip, leaving next Thursday for one week. OK to hold next dose of Teclistamab one additional week (which also should help with mild worsening of neutropenia and thrombocytopenia). High complexity 45 followup to review prior colorectal surgery eval for hemorrhoids, review hepatic ablation for hepatocellular carcinoma, followup pancytopenia due to cirrhosis and active myeloma on bispecific antibody therapy. -- 03/16/2025: Patient is here for follow-up on Teclistamab, relatively stable platelet counts in the 40-50,000 range. Leukopenia also stable-- white blood cells 2500 with ANC 1000. Hemoglobin improved to 12.4. Still seeing palliative medicine for perianal pain related to hemorrhoids. Receives IVIG every 4 to 6 weeks if IgG less than 400. Quantitative immunoglobulins are pending today. Stable hepatic function. Due for restaging MRI liver early April after hepatic ablation in early December. Will need premedication with Valium prior to MRI. Otherwise follow- up MRI results in about 1 month. Return sooner if new issues arise. High complexity 45-minute follow-up of multiple comorbidities. --04/20/2025: Relatively stable platelet count 49,000 range with stable symptoms. Leukopenia with white blood cells 2000, absolute neutrophil count around 900 but no recent infections. Hemoglobin stable at 12.4. We addressed new lesion on MRI of liver and rising AFP sending back for IR evaluation for another ablation to liver. Quantitative immunoglobulins with IgG back down to 583 and will resume IVIG therapy every 4 to 6 weeks based on IgG levels. Still suppressed kappa/lambda light chain analysis with nonsecretory myeloma, no indication for bone marrow biopsy. Continue follow-up every 6 weeks on Teclistamab, sooner if new issues arise. High complexity 45-minute follow-up of multiple comorbidities. --06/15/2025: 2-month follow-up of myeloma labs, CBC and CMP. Her hepatocellular carcinoma ablation was deferred to 3 weeks due to active UTI in late May which is now resolved. Now scheduled for 06/22/2025. Otherwise no IVIG today due to IgG level 728. Will repeat IgG level with CBC on 06/20/2025 and transfuse platelets if less than 50,000 for planned hepatic ablation. Otherwise deferring next Teclistamab for 1 week for patient's planned travel and also worsening neutropenia ANC 500 in absence of infection. Will continue Teclistamab therapy and tentatively set up follow-up appointment in 7 weeks (day of Teclistamab) or sooner as needed. High complexity 45-minute follow-up for coordination of Teclistamab infusions, IVIG infusions, platelet infusions prior to scheduled hepatic ablation next week. -- 07/27/2025: Patient is here for 6-week follow-up after liver ablation at [facility] 06/22/2025, then was able to resume Teclistamab therapy with most recent dose 07/13/2025. 07/20/2025 IVIG was held due to IgG level greater than 600. She will be due for next dose in 1 week and may receive both Teclistamab and IVIG as most recent IgG level was 525. No new bone pain and followed by Dr. Valenzuela with cystoscopy and imaging for hematuria that did not reveal any mucosal abnormalities. She was placed on antibiotics and we are requesting results of her cystoscopy from [place] last month. Laboratories reviewed today still show profound cytopenias with white blood cell count 1500, absolute neutrophil count 500, hemoglobin stable at 10.9, platelet count of 46,000. We will send repeat metabolic workup with B12, folate, serum iron profile and ferritin, copper, and ceruloplasmin to determine if nutritional deficiencies may be contributing to cytopenias. 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 We may consider further dose delay or reduction of Teclistamab if she has persistent cytopenias and infections. Next follow-up will be in mid to late September after 3-month follow-up MRI of the liver after her ablation and AFP with myeloma labs at that time. No indication for bone marrow aspiration biopsy at this time. High complexity 45-minute follow-up for review of outside records from hepatic ablation, cystoscopy and urology workup, Teclistamab infusions, IVIG infusions, and ongoing symptomatology. 10/05/2024: Screening ultrasound ordered by gastroenterology due to cirrhosis secondary to nonalcoholic steatohepatitis. This study 09/19/2024 showed a hyperechoic lesion in the right liver lobe 2.6 x 1.9 x 1.8 cm. 11/16/2024: Dr. Sanchez contacted me with results of MRI of the liver 10/24/2024. Baseline AFP was normal but MRI features of a segment 7 lesion 2.6 cm in greatest diameter consistent with hepatocellular carcinoma. She agrees to referral to [facility] interventional radiology for consideration of potential embolization therapy versus ablation. She may require platelet transfusions for future interventions. I will follow-up with her after her IR evaluation to review plan. 12/29/2024: I reviewed the note from virtual visit with Dr. Flores--scheduled for biopsy and microwave ablation of the right hepatic lobe hepatocellular carcinoma on 01/05/2025. Checking CBC next week and will transfuse 1 unit of platelets if platelet count less than 50,000 (currently 62,000 without bleeding). Follow-up with me in 6 weeks following procedure to review pathology and coordinate surveillance plan. 02/03/2025: This is the first follow-up since she underwent a microwave ablation of right liver lobe hepatocellular carcinoma at [facility] on 01/05/2025. Tolerated well without residual pain. Followup MRI due in 3 months after ablation (mid April 2025). 03/16/2025: No abdominal pain and stable liver function test. Alpha-fetoprotein is pending. Follow-up MRI ordered for early to mid April with follow-up of results thereafter. Premedication with Valium due to claustrophobia. 04/20/2025: Single 1 cm enhancing lesion in segment 6 suspicious for an additional focus of hepatocellular carcinoma. Prior segment 7 lesion shows post ablation changes only. I emailed Dr. Aguila who will review imaging but noted that he would coordinate a phone visit April 27 for evaluation for repeat ablation of the small area. She will follow-up with me in about 2 months with AFP and myeloma labs as noted above. 06/15/2025: Deferred segment 6 ablation due to UTI 3 weeks ago. Now resolved and we will coordinate transfusion to platelet count greater than 50,000 before procedure next week as noted above. Follow-up MRI and AFP every 3 months postprocedure. 07/27/2025: Segment 6 ablation of hepatocellular carcinoma at [facility] on 06/22/2025. Received 1 unit of platelet transfusion the day prior to procedure with no bleeding complications. No residual pain. Alpha-fetoprotein has returned to normal level 4.6. Set up 3- month follow-up liver MRI and AFP prior to mid to late September follow-up. Patient had severe bilateral leg pains last week delaying her visit by 1 day. I decided to check her iron studies and she had anemia with hemoglobin 9.4, iron saturation 7.8% and ferritin 9.9. Given her multiple comorbidities we will give Injectafer 750 mg weekly x 2 and check iron studies and CBC with her follow-up in 6 weeks. 02/03/2025: She received Venofer last month with improvement of iron saturation from 7.8 to now 33.7 and ferritin from 9.9 to now 674. Will continue to followup hemoglobin with repeat iron studies if recurrent hemoglobin decline. 03/15/2025, 04/20/2025: Hemoglobin stable at 12.4. Continue to follow iron studies if worsening anemia only. 07/27/2025: Patient has ongoing pancytopenia with hemoglobin 10.9 but profoundly low white blood cells and platelets. Sending metabolic workup as noted above with B12, folate, serum iron profile and ferritin, copper, and ceruloplasmin to determine if nutritional deficiencies may be contributing to cytopenias. Will contact her with results and replete as needed. She has had over 1 year of complicated hemorrhoids with prolapsing lesions and increased pain. In the short-term we will give her Anusol suppositories and topical lidocaine for symptoms, however I am sending her to colorectal surgery to determine if she could have a local procedures to relieve her hemorrhoids. She is too high risk for surgery here due to chronic thrombocytopenia and SALGADO cirrhosis. We will follow-up recommendations after her colorectal surgery evaluation. 12/29/2024: Reviewed recommendations from colorectal surgery [employer] who noted the patient was too high risk for surgery due to chronic thrombocytopenia. Now using compounded lidocaine and steroid suppositories with improvement of perirectal pain and no active bleeding. 02/03/2025, 03/16/2025, 04/20/2025, 06/15/2025, 07/27/2025: Delayed followup one day due to uncontrolled pain from hemorrhoids, improved today. She was previously evaluated by Dr. Schneider for her hemorrhoids and was not deemed a surgical candidate. She was prescribed a compounded steroid and anesthetic topical medication which is effective for hemorrhoids and compounded by pharmacy. She also uses 2 tabs of Colace and Senna to keep stools soft due to hemorrhoidal pain and no current bleeding issues. We previously discussed referral to hepatology for management of SALGADO, but that there are no medications that will likely reverse her thrombocytopenia. [facility] was [facility] to attempt weight reduction through diet and exercise that may prevent further fatty infiltration that may further impair her liver function. [facility] hepatology discussed liver transplant but she is likely no longer a candidate for this given active myeloma. We chose least hepatotoxic regimen for treatment of her active myeloma with 50% dose reduction of Velcade. Liver function remained stable since start of therapy 04/10/2020. --Requested prior liver biopsy and [facility] liver clinic records. Dose reduction 20% Kyprolis due to SALGADO with cirrhosis (normal bilirubin and transaminases). Stable LFTs on now Teclistamab therapy at [facility], transition to [facility]. Now followed by Dr. Sanchez at [facility]. 11/16/2024: Sending to [facility] interventional radiology for new diagnosis of HCC and will determine if she is a candidate for local therapy with embolization or ablation. 12/29/2024, 02/03/2025, 03/16/2025, 04/20/2025, 06/15/2025, 07/27/2025: Continue follow-up with Dr. Sanchez [facility] gastroenterology. Patient has recurrent infections, frequent sinus infections and UTI with IVIG delivered at [facility] monthly. 09/15/2024: With transition Teclistamab therapy to [facility], we will also arrange ongoing IVIG every 4 to 6 weeks locally. Proceeding with IVIG next week due to most recent IgG level 312 at earlier this month . Workup for cough noted above due to chronic hypogammaglobulinemia. 10/05/2024: IgG is up to 594 and no indication for IVIG today. Will continue to follow quantitative immunoglobulins every 6 weeks on Teclistamab (BiTE) therapy. 12/29/2024: Follow-up quantitative immunoglobulins are pending to determine if there is any indication for IVIG. 02/03/2025, 04/20/2025 : Now continue monthly IVIG at [facility] since transfer of care from . Recurrent UTIs and held May dose due to normal IgG, now back down to 583. Okay for IVIG today and next quantitative immunoglobulins will be reviewed at f/u visit in about 2 months mid June. 06/15/2025: Current IgG is over 700 and she does not qualify for infusion. Reassess early next week for her hepatic ablation procedure for eligibility for IVIG (IgG less than 600) 07/27/2025: IgG was back down to 525 with recent therapy on prolonged antibiotics for recurrent UTIs. She is eligible for IVIG with next infusion in 1 week. Hypocellular for age with 10% cellularity. Nutritional work-up as noted above. No vitamine deficiencies noted. Dr. Supa Lindquist may plan to repeat bone marrow biopsy prior to further active therapy for known light chain myeloma. -- Of note patient had prior testing for ceruloplasmin that returned low at 17.5 and she was placed on oral copper therapy 2 mg daily since March 2023. I am repeating her serum copper and ceruloplasmin levels with labs today and we will contact her with results. We will increase her oral supplemental copper based on these results due to persistent pancytopenia. -- Most recent copper and ceruloplasmin returned in normal range in July 2023. Continue replacement oral copper therapy. -- She has not had follow-up bone marrow biopsy since starting Teclistamab over 1 year ago. We will defer further bone marrow biopsies unless uptrending myeloma markers or worsening cytopenias. Stable bone disease from myeloma on PET/CT 09/21/2024--No indication to repeat her marrow at this time. 69-year-old female who has had chronic mild to moderate thrombocytopenia that was previously treated with transfusion for which she had an adverse reaction consisting of throat tightness. I previously reviewed her outpatient records from [facility] [place], including review of notes, laboratories, and prior bone marrow biopsy 13 years ago. 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 Most recent platelet count is relatively stable at 54,000 but no clinical bleeding. She was previously referred to weight reduction clinic and may have slow improvement of steatohepatitis with lifestyle modification. Unless she has active bleeding or planned surgery, we will continue observation during treatment of active myeloma to commence next month as noted above. --Agree with recommendation for EGD surveillance for varices (last was 09/2018--negative). This will be deferred during current COVID-19 epidemic. --Prior vitamin B12 and folic acid are normal, for known history of neuropathy. As noted above, I reviewed the negative M spike on serum protein electrophoresis with immunofixation, but positive for Bence Murray protein on urine protein electrophoresis. Her Quantitative immunoglobulins IgG, IgA, and IgM were all within normal limits, however her serum kappa lambda light chain analysis showed a predominance of lambda light chains. --Previous labs for lupus anticoagulant with DRVVT, hexagonal phase phospholipid, anti-cardiolipin IgG and IgA, and beta 2 glycoprotein IgG and IgA were within normal limits. --Evaluated in ED November 2019 for epistaxis which resolved. Platelet count was stable at 12/28/2019 follow-up. She continues surveillance with liver clinic at [facility] and I will continue to follow her every 6 months, sooner if new bleeding issues arise. Review prior extensive notes regarding platelet counts during active myeloma therapy. -- 03/11/2023: Platelets have now declined to 28,000. She had increased bruising around the site of her bone marrow biopsy but no other bleeding. We are continuing to hold her chemotherapy for bone marrow cellularity and assess B12, folate, and copper stores. No indication for active treatment of myeloma at this time given plasma cells 4%. We will continue to follow closely with CBC twice this month then if stable once monthly. --06/10/2023: Platelets still 28,000 with bruising but not bleeding from mucosal surfaces. IR guided biopsy from 03/2023 as above--await second opinion from Dr. Lindquist tomorrow. -- 07/08/2023: Platelets now 24,000 with increased bruising but no bleeding. Further evaluation by Dr. Supa Lindquist for further therapy at [facility] as noted above. -- 10/21/2023: Platelet count has remained in the 35-40,000 range since starting Teclistamab for multiple myeloma. Continue follow-up with Dr. Supa Lindquist for further therapy at [facility]. --01/21/2024, 06/29/2024, 10/05/2024, 11/16/2024: Most recent platelets responding in 50-60,000s range. She has now completed over 1 year of Teclistamab therapy and will continue injections locally. -- 12/29/2024: Platelet count 62,000 but need to recheck next Thursday to determine if she needs platelet transfusion for hepatic ablation procedure at [facility]. Transfuse if platelets less than 50,000. --02/03/2025, 03/16/2025, 04/20/2025, 06/15/2025, 07/27/2025: Current platelets 45- 55,000 without bleeding after previous hepatic ablation. In January we delayed Teclistamab one week due to planned vacation. Continue same dose of Teclistamab if ANC >500 and platelets >25,000. Improved symptoms after palliative radiation to bilateral hips--one dose 02/07/2020, radiation to right hip . Will continue to follow on myeloma chemotherapy. Extensive, but stable bone involvement on F-18 PET/CT 12/2020 and 04/2021. Recent increased left neck and shoulder pain. Increased oxycodone dosing to three times daily, no unusual right hip pain is noted above--followed by palliative medicine. -Completed right hip radiation with persistent but improved pain--no new pain issues with follow-up visit with radiation in early March 2022, follow-up as needed. Will continue to follow with palliative medicine. --02/18/2023: Worsening right hip pain--pending PET/CT for restaging as noted above, f/u 3 weeks. -- 03/11/2023: No change in uptake in the right hip on PET/CT. Following with palliative medicine. No indication for reirradiation to right hip unless refractory to medication therapy. No change in symptoms at 07/08/2023 or 01/21/2024 followup. -- 06/29/2024, 09/15/2024: Seen by palliative medicine. Continues gabapentin 400 mg twice daily with oxycodone 10 mg 4 times daily. No progression of disease on restaging whole-body PET/CT reviewed with patient from 09/21/2024. -- 12/29/2024: Recent increased pain from hemorrhoids. Adding topical lidocaine and Anusol suppository. colorectal surgery consult noting patient is not a surgical candidate due to chronic thrombocytopenia. May use opioids as needed and review with palliative medicine. Currently stable symptoms. --02/03/2025, 03/16/2025, 04/20/2025, 07/27/2025: Palliative medicine followup today--continue compounded lidocaine/steroids for hemorrhoidal pain from . Discussion with primary oncologist at [facility]. Coordination of workup for chronic cough. Review of outside records--transition of Teclistamab and IVIG therapy to [facility] orders reviewed with [facility] 10/05/2024: New liver lesion on ultrasound coordinating MRI liver with [facility]. 11/16/2024: Coordinating evaluation by interventional radiology and colorectal surgery for further evaluation of HCC and complicated hemorrhoids respectively. 12/29/2024: Coordinating platelet transfusion as needed before hepatic microwave ablation by interventional radiology at [facility], orders for iron deficiency anemia, ongoing Teclistamab and IVIG therapy for multiple myeloma 02/03/2025, 03/16/2025: Review Teclistamab therapy for myeloma, symptoms one month after hepatic microwave ablation by Interventional radiology, f/u hemorrhoids, f/u iron infusions after Venofer, f/u IVIG infusions for hypogammaglobulinemia. 06/15/2025, 07/27/2025: Coordination of follow-up with Dr. Flores at due to new lesions suspicious for recurrent hepatocellular carcinoma in segment 6. Ordered platelet transfusions before procedure on 06/22/2025 for platelets less than 50,000. -- Diazepam order in September prior to MRI for restaging of hepatocellular carcinoma, AFP and quantitative immunoglobulins surveillance. Author Mariza Sanchez [facility] 20[facility] 2:35pmPt gets labs and imaging pretty regularly per her oncologist getting repeat ablation for new liver lesion at check UA refer to urology Continue bowel regimen OV in 6 months Author Fabiola Marinelli 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 Second dose of Teclistamab weekly (08/17, 08/25, 09/01, 09/08) with changing threshold notification for platelets less than 35. She has not had any bleeding complications due to thrombocytopenia. She was scheduled for third cycle of weekly Teclistamab beginning 09/15/2023 but this was held due to positive COVID-19 infection on 09/12/2023. Plan to admit to 11/04/2023 for next cycle of Teclistamab (will need to observe for recurrent CRS due to significant delay since last dose) -- Resume IVIG 0.4 mg/kg every 3 months at [facility]--now monthly at --Previous doses held cycle 2-day 22 and 28 due to COVID, cycle 3-day 22 and 828 for persistent cough then restarted cycle 4-day 01 February 2024. Doses were changed from weekly to every other week 02/23/24. Doses were changed to every 3 weeks 05/24/2024. ------ -- Teclistamab-cqyv subcu 25 mg once every 3 weeks with dose modification 0.03 mg/kg dose 1 on 08/06/2023, then dose changed to 0.6 mg/kg (49 mg)--most recent records from 09/06/2025 with Teclistamab dose 117 mg (about 95% of standard dose 1.5 mg/kg) now every 3 weeks. -- Cycle 10-day 1: 100% dose 123 mg started 09/28/2024 at [facility]. Tolerated well, continue every 3-week therapy. -- No change in regimen 12/29/2024 follow-up. May need upcoming platelet transfusions for biopsy/microwave ablation of liver for suspected HCC if platelets less than 50,000. Stable neutropenia with ANC 500. Awaiting myeloma labs from today. --02/03/2025: ANC 900 and platelets 49,000. No indication for Teclistamab-cqyv dose reduction but she has a planned vacation leaving next Thursday and she will delay next Teclistamab by one week. Resume current dose with next f/u with me with myeloma labs in mid March. --06/15/2025: ANC 500, platelets 45,000. Patient request to defer next dose of Teclistamab-cqyv by 1 week due to planned travel in late June, returning July 03. Does not qualify for IVIG today due to IgG level 728 but will repeat next Thursday with platelet counts for planned platelet transfusion before hepatocellular carcinoma ablation (may give IVIG that day as well if she qualifies with IgG level less than 600). ------ --IVIG 20 g about once every 4 to 6 weeks with hydrocortisone injections 100 mg each IVIG infusion. IVIG resumed for IgG less than 400 on most recent labs late August at [facility]. Currently receiving IVIG monthly at [facility] (IgG was 313 on last labs 12/29/2024). Held mid March 2025 for IgG in 800 range, will resume 04/20/2025 due to IgG back to 580. Continue monthly to every 6-week of therapy based on IgG level. 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 She has high risk cytogenetics and I sent her for consultation with Dr. Andre Benavidez at [facility] in 2017. Her persistent thrombocytopenia made her ineligible for any clinical trials, and prevented her from receiving local pain procedures given her chronic low back pain. --05/2017 PET/CT images and reports performed for staging to exclude bone involvement with myeloma. 2 indeterminate areas of uptake thought to be degenerative arthritis vs early bone findings of myeloma (right parietooccipital area and upper sternum). She has remained asymptomatic in these areas and we arranged repeat PET/CT at 6 months with CBC, CMP, SPEP and UPEP with immunofixation, serum kappa/lambda light chain analysis, and quantitative immunoglobulins. --No lytic lesion seen on f/u PET/CT 11/2017 and all labs stable. Also had head CT to evaluate for mastoiditis in 03/2018 unremarkable. 05/2018 skeletal survey showed no lytic lesions and she has stable shoulder, hand, and right SI joint pain (although likely due to fibromyalgia. --Prior osseous survey 07/01/2019 showed osteopenia but no compression fractures or lytic lesions were identified. She had no significant change in myeloma labs (mild increase of urine M-spike, kappa/lambda ratio, and normal serum M-spike and quant immunoglobulins). Urine protein still undetectable, therefore will continue surveillance every 6 months with the same labs--no hypercalcemia, renal dysfunction (or proteinuria), anemia, or new bone symptoms. --Due to COVID-19 epidemic, her 6-month follow-up was performed by telephone encounter 01/18/2020. Due to recurrent headaches and left hip pain we performed a F-18 PET/CT on 01/02/2020 which showed skull, cervical/thoracic/lumbar, and proximal femur lesions. Since I was unavailable Dr. Abel Cummings performed bone marrow biopsy which although showed a suboptimal specimen, 50% of plasma cells were consistent with multiple myeloma by CD138 staining. She also is found on plain films of the bilateral proximal femurs and pelvis to have lytic lesions which correspond to her left hip pain. --The patient was evaluated by Dr. Ahn of radiation oncology for palliative radiation to the bilateral femurs. She received one hypofractionated abbreviated course of radiation (800 cGy x 1) on 02/07/2020 to minimize exposures during COVID-19 epidemic. --The patient's myeloma labs (December 2019) do show normal quantitative immunoglobulins with IgA lambda monoclonal protein by immunofixation (serum IgA is 272). Her kappa/lambda ratio shows a predominance of free lambda 479 with elevated free kappa 23.6 and abnormal free kappa/lambda ratio of 0.05. Urine immunofixation also shows lambda type Bence-Murray proteins with urine M spike 43.1 but total protein 34.4, with no reported urine creatinine. --We deferred immunosuppressive chemotherapy for about 1 month due to control of symptoms after palliative radiation and concern of potential peak of COVID-19 in late January early March. --She presented for follow-up 03/05/2020 and we discussed potential therapy options (son available by phone). --I discussed her case with Dr. Andre Benavidez of malignant hematology, possibly presenting the patient in hematology tumor board at [facility]. --Infusion port placed 03/22/2020 at [facility] due to low platelets. No complications. --03/12/2020: Myeloma labs with no serum M-spike, + urine M spike 22.2mg/24h (14%). Immunofixation IgA lambda specificity. IgA normal 227, Serum kappa 20.6, serum lambda 516.7, Free kappa/lambda ratio 0.04. Normal renal function and calcium. Lower ANC 600 and platelets 40,000 --04/10/2020: Started cycle 1 day 1 of weekly dexamethasone 20 mg IV (careful to watch blood sugars with diabetes and known hepatic dysfunction), decreased dose of bortezomib 0.7 mg/m?? twice weekly for 2 weeks on 1 week off (due to known liver disease and thrombocytopenia), and daratumumab 8mg/kg D1,D2 IV first week, then 16 mg/kg IV weekly and we may consider Revlimid as a 4th medication if needed (deferred for worsening neutropenia and thrombocytopenia--I am reluctant to add this therapy initially). --------- --01/21/2021: One year f/u F18 PET/CT with stable FDG avidity, monoclonal labs (SPEP, Quant Igs, kappa/lambda ratio) all pending. Stable CBC and CMP. Persistent pain left hand 2nd MCP joint--increased uptake on PET/CT but no lesion on left hand xray from 11/2020. Sending for ortho evaluation. For now continue once monthly Daratumumab. F/u with myeloma labs and exam in 2 months, sooner prn. --05/24/2021: Bone marrow biopsy does not show significant progression although poor prognosis mutation 1q with 13q on FISH. Hypocellular with recent worsening platelets without bleeding--will recheck B12, folate, and ferritin. Cervical MRI showed some spinal stenosis, but neck pain is improved. No bone lesions on PET and prior neuropathy stable to mildly improved. I recommend continuing Daratumumab alone with f/u myeloma labs and f/u in 2 months, sooner prn. --07/17/2021: Mojgan presented with sudden onset right femur and hip pain since Thursday without history of trauma. She was sent for plain films of the hip femur and knee showing degenerative changes but no acute fracture. On 04/22/2021, she had F-18 PET/CT showing increased uptake at multiple foci including the pelvis and proximal femurs. I reviewed her case with Dr. Cheng who recommended right femur MRI for further evaluation to determine if she has an occult fracture or lytic lesion. If she is felt to have high risk disease on MRI she may require prophylactic femoral kenton. We reaffirmed with the patient she needed to be on strict nonweightbearing right leg and is ambulating with walker only. She will have follow-up with orthopedic surgery. --Prior bone marrow biopsy did not show significant progression although she still has slow rise in lambda light chain and platelet count remains in the 50,000 range. She has increased bruising but no bleeding. For now we will continue daratumumab and follow closely in 6 weeks with monoclonal gammopathy labs and to review recommendations from orthopedic surgery. --08/30/2021: Improvement of prior right hip pain after radiation therapy. Echo with normal ejection fraction and platelets stable at 52,000 without bleeding. I discussed her case with Dr. Benavidez who advised against Kyprolis due to her known liver disease. He recommended repeating loading doses of weekly daratumumab with low dose Revlimid (I will start with 5mg daily D 1-21 each 28 day cycle due to her thrombocytopenia). F/u 2 weeks for toxicity check. She will sign Revlimid consent Thursday. She is in agreement with this plan. --09/20/2021: Started daratumumab loading doses weekly with Revlimid on 09/04/2021. Held therapy for ANC 900 and platelet 42,000 with sinus infection, now resolved and resumed Revlimid 5mg daily on 09/17. Will continue therapy as prescribed with weekly CBC and hold Revlimid as needed for cytopenias. Evaluation [facility]. Send myeloma labs and skeletal survey in 2 weeks, f/u with me in 4 weeks. She agrees with this plan. --01/22/2022: No new symptoms but patient is not deemed a candidate for CAR-T therapy at this time. Gradual worsening lambda light chains reviewed with the patient. We will complete this cycle of daratumumab 16 mg/kg IV every 2 weeks and complete current cycle of Revlimid with change to pomalidomide 4 mg daily, follow weekly CBCs after change in therapy and determine optimal dose based on symptoms and cytopenias. Patient is in agreement with this plan. Next follow- up with me in 1 month and we will defer next light chain analysis until 1 month after change in therapy. --02/19/2022: Continued rise in lambda light chains and worsening thrombocytopenia. Today we reviewed informed consent for adding pomalidomide 3 mg daily days 1 through 21 every 28 cycle 2 every other week daratumumab. We are dropping Revlimid due to progression of disease and persistent thrombocytopenia. We are resending myeloma labs upon arrival of pomalidomide and continuing to hold Revlimid. Next follow-up will be cycle 1 week 3 of pomalidomide/daratumumab. No active bleeding with thrombocytopenia and okay to proceed with daratumumab with ANC 800, platelet count 58,000. Pomalidomide is dose reduced due to baseline liver dysfunction. -- 03/19/2022: Mojgan was only able to tolerate 5 days of pomalidomide 3 mg daily because she developed a diffuse rash with erythema and pruritus (grade 3). Therapy was stopped after initial cycle was only given 03/05-03/13/2022. Now that she has complete resolution of symptoms she may resume pomalidomide at 1 dose level reduction 2 mg daily for days 1 through 21 of each 28-day cycle. We are also holding her daratumumab today due to declining her platelet count 41,000 without bleeding. Repeat kappa/lambda light chain ratio was increased 80 on 03 05 but this was her first dose of pomalidomide. Plan anticipate arrival of pomalidomide within the next 1 to 2 weeks and she may resume daratumumab on day 1 of therapy. Her next follow-up will be in about 3 to 4 weeks to review toxicities. She is instructed that if she has recurrent intolerable rash she may contact us and let us know. At her 4-week follow-up we will reorder her serum kappa/lambda light chain analysis with SPEP and immunofixation to assess initial response to therapy. Moderate complexity visit over 25 minutes to review chemotherapy toxicity. --04/09/2022: Mojgan has not had any recurrent rash with lower dose of pomalidomide 2 mg daily. She is now day 14 and has platelet count 40,000 without bleeding. Otherwise she is tolerating therapy well without adverse effects. Her most recent labs for following myeloma show normal mild increase her free lambda from 87 to 106, kappa/lambda ratio decreased 0.10-0.09. I will give her 1 more month of pomalidomide with daratumumab and dexamethasone. The pomalidomide dose will be changed to 2 mg p.o. days 1 through 14, off days 15 through 28. Repeat her myeloma labs in 1 month with kappa/lambda light chain ratio. If worsening we may consider change in therapy (discussed with Avery Rivera, oncology pharmacy to potentially choose regimen with least probable thrombocytopenia). --05/07/2022: Mojgan is tolerating low-dose pomalidomide with now monthly daratumumab and weekly dexamethasone well. 1 year follow-up PET/CT from 04/30/2022 shows no new bony lesions. Her kappa/lambda light chain ratio remains relatively stable since early March (0.09- 0.11) with free lambda light chains now relatively stable (106-109). I advised continuing her current regimen and reevaluating with kappa/lambda light chain ratio in 2 months. Continue current dosing and close observation due to platelet count 48,000. No signs or symptoms of infection. Patient is in agreement with this plan. --07/10/2022: Mojgan has no new symptoms, but continued cytopenias with 2 weeks of pomalidomide held due to recurrent neutropenia and persistent thrombocytopenia (40-50,000). Continued uptrending lambda light chains consistent with progression of myeloma. We did discuss bone marrow biopsy, but this would not private branch exchange service advisor, therefore we will give Pomalyst (now decreased to 2mg Thursday and only) with last dose Daratumumab tomorrow. 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 Will f/u ECHO and consent for therapy tomorrow. Plan discussed with Dr. [facility]--recommends no dose reduction of Cytoxan, but transfusion support as needed since cytopenias may be due to progression of malignancy. --08/20/2022: Mojgan is here for cycle 2 day 1 of Carfilzomib 27mg/m2 IV weekly, Cyclophosphamide 300mg/m2 IV weekly, and Dexamethasone 20mg IV/po weekly. Tolerating well without new side effects. Stable fatigue, no bleeding. Mild improvement of platelets without active bleeding, stable WBC with ANC 1000. Will continue current dosing of all meds and followup in 3 weeks with CBC, CMP, SPEP, VAHID, quantitative immunoglobulins, and kappa/lambda light chains (ok to see [employer]). --09/17/2022: Mojgan is here for cycle 3 of modified CYKLONE regimen. She continues to do ok with only mild fatigue, no other new complaints or s/s of infection. She is ok to treat per discussion with Dr. Marinelli despite low WBC, ANC and platelets. She will follow-up in 3 weeks with next cycle, sooner as needed. --10/15/2022: She continues to feel well overall. She does have very mild signs of thrush starting on her tongue, so we will treat with nystatin swish and swallow x 1wk. Otherwise no new complaints, still tolerating treatment very well. Labs are reviewed and ok for treatment. She will follow-up in 4wks with Dr. Marinelli for treatment and with repeat CBC, CMP, SPEP, VAHID, immunoglobulins, and FLC. She is in agreement with this plan and has no questions. --10/29/2022: Stable symptoms on current therapy. Recent viral infection with worsening cytopenias. She has been off weekly therapy for the last 2 weeks due to cytopenias, therefore we will hold 1 further week and if her blood counts meet parameters, she will have dose reduced Carfilzomib 27-->20mg/m2 IV weekly, Cyclophosphamide 300-->240mg/m2 IV weekly, and Dexamethasone 20mg IV/po weekly. She is overdue for echo which was ordered today and we will check results before resuming therapy. Next follow-up with me in 6 weeks or sooner as needed. Chicora/lambda light chains were reviewed and do show partial response over the last 3 months. We will continue to follow at least every 2 to 3 months while on therapy. . No longer a candidate for Blenrep--access removed by FDA for limited efficacy. Moderate complexity 35 minute followup visit. --11/26/2022: No new symptoms with ongoing response of lambda light chains but persistent cytopenias. In absence of new symptoms of infection or bleeding, we will continue therapy with further dose reduction of cyclophosphamide to 180mg/m2 IV weekly with stable dose Kyprolis 20mg/m2 IV weekly and Dexamethasone. Discussed with Dr. Benavidez at --he would support holding therapy and observation if persistent cytopenias and consider bone marrow biopsy. For now will continue monthly followup and myeloma labs every 1-2 months. She may be a candidate for bispecific antibody in the future if refractory or intolerant of current therapy. Echo stable cardiac function EF 55-60%. She agrees with this plan. Covered with Amoxicillin bid x [address] for recurrent headaches given her neutropenia. Will call with results and ENT consult if air fluid level on sinus CT. Moderate complexity 35 minute followup visit. --12/26/2022: Cyclophosphamide 180mg/m2 IV weekly, Kyprolis 20mg/m2 IV weekly, and Dexamethasone 20mg weekly on hold with last dose 12/04/2022 due to persistent cytopenias and sinusitis. She now has ANC 900 and platelets 37,000 without bleeding. Relatively stable lambda light chains in 40s range. I will hold therapy another 2 weeks, give Augmentin 875mg bid x 2 weeks for persistent sinusitis (no air fluid levels on CT scan), and send referral to Dr. Benavidez for possible CD3/BCMA bispecific antibody therapy (risk of cytokine release syndrome with first dose, requires inpatient observation at a tertiary center). If consult is delayed and persistent cytopenias at 2 week followup, I may consider repeat bone marrow biopsy at that time. Moderate complexity 35 minute followup visit. --01/09/2023: Cytopenias improved. Hold Kyprolis/Cytoxan 2 more weeks, then resume lower dose Cyclophosphamide 120mg/m2 IV weekly, Kyprolis 20mg/m2 IV weekly, and Dexamethasone 20mg weekly. Lambda light chains now in 60s. Dr. Benavidez agrees with this plan. May be a future candidate for bispecific antibody Teclistamab (needs to be hospitalized first week due to risk of cytokine release syndrome). Next followup with myeloma labs in 2 months, sooner prn. 30 minute moderate complexity followup. --02/18/2023: No active therapy since 12/04/2022--platelets have not improved. Continued uptrending kappa light chains (now 60s range). 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 Worsening right hip/leg pain--repeat PET/CT to determine if bony progression (plain film without obvious lytic lesion right hip/femur). Will set up IR guided bone marrow biopsy to eval whether persistent cytopenias due to progression vs. therapy related MDS. Hold Kyprolis/Cytoxan and if no progression or MDS on bone marrow biopsy, we will resume lower dose Cyclophosphamide 120mg/m2 IV weekly, Kyprolis 20mg/m2 IV weekly, and Dexamethasone 20mg weekly. Moderate complexity 35 min. --03/11/2023: Persistent right hip pain followed by palliative medicine. Increasing doses of OxyContin 10 mg 4 times daily with gabapentin 400 mg once daily as needed. We are deferring repeat radiation of the right hip since she does not have any new findings on PET/CT and she had prior radiation 2 years ago. In reviewing her bone marrow biopsy she is noted to have hypocellular marrow 10% with only 4% clonal plasma cells in addition to a 12% atypical clonal B-cell population on flow cytometry. Given her hypocellularity and low percentage of plasma cells despite increasing lambda light chains on peripheral blood, we will continue to hold her cyclophosphamide, Kyprolis, and dexamethasone. She did receive 1 infusion of IVIG in early January mainly due to recurrent sinusitis but has not required any active antibiotics. This also did not improve her platelet count which is still 28,000. Due to hypocellular marrow we will send methylmalonic acid and homocystine to assess B12 and folate stores with copper and ceruloplasmin for copper storage. I will also send her iron stores to determine if trace element optimization may improve her cellularity. We will continue CBC every 2 weeks this month given her low platelet count then if stable we will continue CBC monthly and follow-up with her in 3 months with CBC, CMP, quantitative immunoglobulins and kappa/lambda light chains. She may return sooner if new issues arise. High complexity 45- minute visit for review of bone marrow biopsy, imaging, complex medical testing, discussion of plan. --06/10/2023: Stable right hip pain and neuropathy. Off active therapy with cyclophosphamide, Kyprolis, and dexamethasone since 12/2022. Platelet count still 28,000 without active bleeding. Hemoglobin stable at 10 but worsening WBC 1700 with ANC 1000. Rising lambda light chains and kappa/lambda ratio 0.06. She will see Dr. Lindquist--requested change to virtual visit tomorrow due to family emergency. He will call me after the visit with his recommendations. Consider bispecific antibodies or CAR-T option if these are available options. If no active therapy, continue labs every 6 weeks, visit every 3 months. Moderate complexity 35 minute followup. --07/08/2023: Mojgan returns for 1 month follow-up and lab review. She remains off active chemotherapy but completed a virtual consult with Dr. Lindquist on 06/26/2023. In reviewing his note, he discussed potential candidacy for by specific antibody therapy or CAR-T cell therapy for prolonged remission. He felt that she may require a repeat bone marrow biopsy as her prior bone marrow biopsy may have underestimated her marrow involvement as it may have been in an area that was previously radiated. We reviewed labs from today showing gradually worsening leukopenia over the last 3 months with now absolute neutropenia ANC 800 without any recent infections. Platelet count is now down to 26,000 without active bleeding but marked bruising of the extremities. Hemoglobin is stable at 10.5 with normal renal function and calcium. She has a scheduled in person follow-up with Dr. Supa Lindquist on 07/23/2023 where she will review potential eligibility for these novel therapies that are not available at [facility]. We did discuss potential risk of cytokine release syndrome with by specific antibody therapy that would require a short hospital admission at [facility]. For now we set up a follow-up visit in 3 months with myeloma laboratories, sooner if requested by Dr. Lindquist. Patient is in agreement with this plan over this 35-minute moderate complexity visit for coordination of care with [facility]. --10/21/2023: As summarized in the HPI, Mojgan has been on active therapy with Dr. Lindquist of malignant hematology at [facility] since initiation of Teclistamab by specific antibody for refractory myeloma. This was initiated 08/04/2023 with inpatient admission for ramp-up phase. She had grade 1 CRS (fevers) and ICANS (suzanna ICE score 8/10). She then received cycle 2-day 1 weekly at [facility] from 08/17 through last dose 09/08/2023. Her third cycle was delayed due to positive COVID-19 on 09/12/2023 treated with Paxlovid in [place]. She was to resume therapy with Teclistamab on 10/13 but had a recurrent sinus infection treated with antibiotics and steroids by Dr. Lindquist. She received IVIG 09/22/2023 at [facility] for IgG level less than 400. We wrote orders today to resume IVIG here in [place] due to her recurrent infections and persistent pancytopenia (ANC 1000, platelets 35-40,000) secondary to known liver disease/SALGADO cirrhosis. -- We are unable to deliver Teclistamab therapy locally due to pharmacy control issues and she will continue Teclistamab at [facility]. I personally spoke to Dr. Lindquist by phone and he plans to readmit her 11/04/2023 due to risk of recurrent CRS and ICANS since it has been over 6 weeks since last dose. IVIG orders written here today. She will remain on 3 times weekly Bactrim DS for PCP prophylaxis, acyclovir 400 mg twice daily for VZV prophylaxis. We will continue to follow her with myeloma labs CBC, CMP, quantitative immunoglobulins and kappa/lambda light chains every 3 months and primary follow-up for myeloma will be at [facility]. High complexity 1 hour visit. -- 01/21/2024: Updated history from [facility] from patient, notes scanned in, and telephone conversation with Dr. Fraser. Continues monthly IVIG (most recent one week ago). We discussed potentially resuming fungal prophylaxis due to persistent cough and infectious workup below. Teclistamab on hold per Dr. Fraser. Continue regular followup at . Virtual followup of CT sinus and chest when complete (1-2 weeks) and pulmonary medicine consult for possible bronchoscopy. Patient agrees with this plan. After virtual followup to review imaging, I will follow locally in 3 months to coordinate local care. 45 minute high complexity visit. --06/29/2024: Follow-up for malignant myeloma in pancytopenia secondary to cirrhosis from steatohepatitis with Dr. Lindquist. She continues Teclistamab therapy every 3 weeks at [facility] with IVIG infusions. Since last visit with me she had hospitalization for sepsis due to spontaneous bacterial peritonitis. 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 I reviewed her most recent myeloma labs showing undetectable kappa and lambda light chains, M spike unable to detect due to hypoalbuminemia, and undetectable IgM and IgA with IgG reflecting her monthly IgG infusions. She has not had a follow-up bone marrow biopsy since start of therapy. Her last restaging PET/CT was over a year ago and I will order whole-body exam and F-18 PET/CT and forward results to Dr. López. I am investigating with our brass roller whether we can transition her Teclistamab infusions to [facility] if we are able to obtain supply of the medication and coverage by insurance. I will communicate with Dr. López whether it is feasible to transition her care locally prior to the winter months. If she continues follow-up in [place] we will follow with her every 6 months for local supportive care. We have also reviewed notes from gastroenterology, pulmonary medicine, palliative care, and outside notes from [facility]. High complexity 45-minute visit with 30 minutes coordination of care. --09/15/2024: Patient has been followed at [facility] for Teclistamab therapy, but now that she has been stable for over a year and we have appropriate licensing and in-service here [facility], we will transfer Teclistamab therapy for primary follow-up at [facility]. Orders are written to proceed next week with full dose 123 mg every 3 weeks. She will also receive IVIG every 4 to 6 weeks if IgG less than 400. She has rescheduled her F-18 PET/CT several times due to persistent cough but we will give Valium preprocedure. Cough is improved since stopping lisinopril therapy. She will follow-up in 2 weeks to review tolerance of therapy here and results of myeloma labs and PET/CT, then we will likely follow every 6 weeks on therapy. High complexity 45-minute follow-up for transfer of care and utilization of novel bi-specific T-cell effector cell (BiTE) therapy. [id number] additional 30 minutes preparation of orders and review of outside laboratories and documentation of Teclistamab therapy at [facility]. --10/05/2024: Here for follow-up after initial dose of Teclistamab therapy at [facility] 09/28/2024. She tolerated this well with no concerning symptoms from last visit 3 weeks ago. Laboratories reviewed showing stable leukopenia wth ANC 800 and no signs or symptoms of infection. Hemoglobin stable at 9.9, platelet count stable at 53,000 without bleeding. Normal renal and hepatic function. Chicora and lambda light chains are below the limits of detection therefore these will be followed about every 3 months. IgG is up to 594 and she does not require IVIG today. Will check quantitative immunoglobulins with CBC and CMP every 6 weeks and follow-up about every 6 weeks with every 3-week dosing of Teclistamab. Her PET/CT was stable from prior PET with no new areas of bony involvement. Recent liver ultrasound with possible mass lesion that is pending MRI liver ordered by Dr. Sanchez later this month we will follow-up with patient. Likely will have a screening AFP at that time as well. Follow-up with me in 6 weeks with labs and exam. She may return sooner if new issues arise. High complexity 45-minute follow-up to review toxicities on Teclistamab, labs, recent liver ultrasound, and PET/CT for restaging myeloma. --11/16/2024: Patient is tolerating Teclistamab therapy well with exception of cytopenias, ANC 600 without infection. Stable platelet count 51,000. At this time we are continuing Teclistamab while pending workup for hepatocellular carcinoma noted below. Her quantitative immunoglobulins are pending and we stopped sending kappa/lambda light chain due to undetectable levels in September. Okay to send for myeloma labs in 3 months with serum protein electrophoresis with immunofixation, quantitative immunoglobulins, and kappa/lambda light chain analysis at that time. We will see her sooner after her evaluations at [facility] as noted below. High complexity 45-minute follow-up of multiple comorbidities. --12/29/2024: Here for Teclistamab and follow-up labs were drawn this morning therefore we do not have them for review. Stable neutropenia with white blood cell count 2000, ANC 900. Normal creatinine 1, calcium 9.2. Addressed leg pain over the last few weeks with labs showing iron deficiency therefore we will arrange Injectafer infusions as noted below. Quantitative immunoglobulins and kappa/lambda light chains repeated with labs today and will be reviewed when she returns for her next follow-up in about 6 weeks after her hepatic ablation procedure. We are coordinating platelet transfusion if needed if next Thursday CBC shows platelets less than 50,000. She may return sooner if new issues arise. High complexity 45-minute follow-up of multiple core morbidities, coordination of care with her [facility]'s upcoming procedure and new diagnosis of iron deficiency with leg pain coordinating Injectafer infusions. --02/03/2025: Her last Teclistamab dose was 01/19/2025 with subsequent labs 01/30/2025 showing white blood cell count 2400, ANC 900, hemoglobin improved to 11.4, platelet count slightly lower at 49,000 without bleeding issues. She received Venofer last month with improvement of iron saturation from 7.8 to now 33.7 and ferritin from 9.9 to now 674. Liver function test showed normal total bilirubin, normal ALT and AST, but mildly elevated alkaline phosphatase around the time of teclistimab dose. She has planned trip, leaving next Thursday for one week. OK to hold next dose of Teclistamab one additional week (which also should help with mild worsening of neutropenia and thrombocytopenia). High complexity 45 followup to review prior colorectal surgery eval for hemorrhoids, review hepatic ablation for hepatocellular carcinoma, followup pancytopenia due to cirrhosis and active myeloma on bispecific antibody therapy. -- 03/16/2025: Patient is here for follow-up on Teclistamab, relatively stable platelet counts in the 40-50,000 range. Leukopenia also stable-- white blood cells 2500 with ANC 1000. Hemoglobin improved to 12.4. Still seeing palliative medicine for perianal pain related to hemorrhoids. Receives IVIG every 4 to 6 weeks if IgG less than 400. Quantitative immunoglobulins are pending today. Stable hepatic function. Due for restaging MRI liver early April after hepatic ablation in early December. Will need premedication with Valium prior to MRI. Otherwise follow- up MRI results in about 1 month. Return sooner if new issues arise. High complexity 45-minute follow-up of multiple comorbidities. --04/20/2025: Relatively stable platelet count 49,000 range with stable symptoms. Leukopenia with white blood cells 2000, absolute neutrophil count around 900 but no recent infections. Hemoglobin stable at 12.4. We addressed new lesion on MRI of liver and rising AFP sending back for IR evaluation for another ablation to liver. Quantitative immunoglobulins with IgG back down to 583 and will resume IVIG therapy every 4 to 6 weeks based on IgG levels. Still suppressed kappa/lambda light chain analysis with nonsecretory myeloma, no indication for bone marrow biopsy. Continue follow-up every 6 weeks on Teclistamab, sooner if new issues arise. High complexity 45-minute follow-up of multiple comorbidities. --06/15/2025: 2-month follow-up of myeloma labs, CBC and CMP. Her hepatocellular carcinoma ablation was deferred to 3 weeks due to active UTI in late May which is now resolved. Now scheduled for 06/22/2025. Otherwise no IVIG today due to IgG level 728. Will repeat IgG level with CBC on 06/20/2025 and transfuse platelets if less than 50,000 for planned hepatic ablation. Otherwise deferring next Teclistamab for 1 week for patient's planned travel and also worsening neutropenia ANC 500 in absence of infection. Will continue Teclistamab therapy and tentatively set up follow-up appointment in 7 weeks (day of Teclistamab) or sooner as needed. High complexity 45-minute follow-up for coordination of Teclistamab infusions, IVIG infusions, platelet infusions prior to scheduled hepatic ablation next week. 10/05/2024: Screening ultrasound ordered by gastroenterology due to cirrhosis secondary to nonalcoholic steatohepatitis. This study 09/19/2024 showed a hyperechoic lesion in the right liver lobe 2.6 x 1.9 x 1.8 cm. 11/16/2024: Dr. Sanchez contacted me with results of MRI of the liver 10/24/2024. Baseline AFP was normal but MRI features of a segment 7 lesion 2.6 cm in greatest diameter consistent with hepatocellular carcinoma. She agrees to referral to [facility] interventional radiology for consideration of potential embolization therapy versus ablation. She may require platelet transfusions for future interventions. I will follow-up with her after her IR evaluation to review plan. 12/29/2024: I reviewed the note from virtual visit with Dr. Flores--scheduled for biopsy and microwave ablation of the right hepatic lobe hepatocellular carcinoma on 01/05/2025. Checking CBC next week and will transfuse 1 unit of platelets if platelet count less than 50,000 (currently 62,000 without bleeding). Follow-up with me in 6 weeks following procedure to review pathology and coordinate surveillance plan. 02/03/2025: This is the first follow-up since she underwent a microwave ablation of right liver lobe hepatocellular carcinoma at [facility] on 01/05/2025. Tolerated well without residual pain. Followup MRI due in 3 months after ablation (mid April 2025). 03/16/2025: No abdominal pain and stable liver function test. Alpha-fetoprotein is pending. Follow-up MRI ordered for early to mid April with follow-up of results thereafter. Premedication with Valium due to claustrophobia. 04/20/2025: Single 1 cm enhancing lesion in segment 6 suspicious for an additional focus of hepatocellular carcinoma. Prior segment 7 lesion shows post ablation changes only. I emailed Dr. Aguila who will review imaging but noted that he would coordinate a phone visit April 27 for evaluation for repeat ablation of the small area. She will follow-up with me in about 2 months with AFP and myeloma labs as noted above. 06/15/2025: Deferred segment 6 ablation due to UTI 3 weeks ago. Now resolved and we will coordinate transfusion to platelet count greater than 50,000 before procedure next week as noted above. Follow-up MRI and AFP every 3 months postprocedure. Patient had severe bilateral leg pains last week delaying her visit by 1 day. I decided to check her iron studies and she had anemia with hemoglobin 9.4, iron saturation 7.8% and ferritin 9.9. Given her multiple comorbidities we will give Injectafer 750 mg weekly x 2 and check iron studies and CBC with her follow-up in 6 weeks. 02/03/2025: She received Venofer last month with improvement of iron saturation from 7.8 to now 33.7 and ferritin from 9.9 to now 674. Will continue to followup hemoglobin with repeat iron studies if recurrent hemoglobin decline. 03/15/2025, 04/20/2025: Hemoglobin stable at 12.4. Continue to follow iron studies if worsening anemia only. She has had over 1 year of complicated hemorrhoids with prolapsing lesions and increased pain. In the short-term we will give her Anusol suppositories and topical lidocaine for symptoms, however I am sending her to colorectal surgery to determine if she could have a local procedures to relieve her hemorrhoids. She is too high risk for surgery here due to chronic thrombocytopenia and SALGADO cirrhosis. We will follow-up recommendations after her colorectal surgery evaluation. 12/29/2024: Reviewed recommendations from colorectal surgery [employer] who noted the patient was too high risk for surgery due to chronic thrombocytopenia. Now using compounded lidocaine and steroid suppositories with improvement of perirectal pain and no active bleeding. 02/03/2025, 03/16/2025, 04/20/2025, 06/15/2025: Delayed followup one day due to uncontrolled pain from hemorrhoids, improved today. She was previously evaluated by Dr. Schneider for her hemorrhoids and was not deemed a surgical candidate. She was prescribed a compounded steroid and anesthetic topical medication which is effective for hemorrhoids and compounded by pharmacy. She also uses 2 tabs of Colace and Senna to keep stools soft due to hemorrhoidal pain and no current bleeding issues. Bilateral leg pain stable after prior iron infusions. Improved symptoms noted with myeloma lab f/u in mid June and at this time we will defer repeat PET/CT for restaging myeloma. We previously discussed referral to hepatology for management of SALGADO, but that there are no medications that will likely reverse her thrombocytopenia. [facility] to attempt weight reduction through diet and exercise that may prevent further fatty infiltration that may further impair her liver function. [facility] hepatology discussed liver transplant but she is likely no longer a candidate for this given active myeloma. We chose least hepatotoxic regimen for treatment of her active myeloma with 50% dose reduction of Velcade. Liver function remained stable since start of therapy 04/10/2020. --Requested prior liver biopsy and [facility] liver clinic records. Dose reduction 20% Kyprolis due to SALGADO with cirrhosis (normal bilirubin and transaminases). Stable LFTs on now Teclistamab therapy at [facility], transition to [facility]. Now followed by Dr. Sanchez at [facility]. 11/16/2024: Sending to [facility] interventional radiology for new diagnosis of HCC and will determine if she is a candidate for local therapy with embolization or ablation. 12/29/2024, 02/03/2025, 03/16/2025, 04/20/2025, 06/15/2025: Continue follow-up with Dr. Sanchez [facility] gastroenterology. Patient has recurrent infections, frequent sinus infections and UTI with IVIG delivered at [facility] monthly. 09/15/2024: With transition Teclistamab therapy to [facility], we will also arrange ongoing IVIG every 4 to 6 weeks locally. Proceeding with IVIG next week due to most recent IgG level 312 at earlier this month . Workup for cough noted above due to chronic hypogammaglobulinemia. 10/05/2024: IgG is up to 594 and no indication for IVIG today. Will continue to follow quantitative immunoglobulins every 6 weeks on Teclistamab (BiTE) therapy. 12/29/2024: Follow-up quantitative immunoglobulins are pending to determine if there is any indication for IVIG. 02/03/2025, 04/20/2025 : Now continue monthly IVIG at [facility] since transfer of care from . Recurrent UTIs and held May dose due to normal IgG, now back down to 583. Okay for IVIG today and next quantitative immunoglobulins will be reviewed at f/u visit in about 2 months mid June. 06/15/2025: Current IgG is over 700 and she does not qualify for infusion. Reassess early next week for her hepatic ablation procedure for eligibility for IVIG (IgG less than 600) Hypocellular for age with 10% cellularity. Nutritional work-up as noted above. No vitamine deficiencies noted. Dr. Supa Lindquist may plan to repeat bone marrow biopsy prior to further active therapy for known light chain myeloma. -- Of note patient had prior testing for ceruloplasmin that returned low at 17.5 and she was placed on oral copper therapy 2 mg daily since March 2023. I am repeating her serum copper and ceruloplasmin levels with labs today and we will contact her with results. We will increase her oral supplemental copper based on these results due to persistent pancytopenia. -- Most recent copper and ceruloplasmin returned in normal range in July 2023. Continue replacement oral copper therapy. -- She has not had follow-up bone marrow biopsy since starting Teclistamab over 1 year ago. We will defer further bone marrow biopsies unless uptrending myeloma markers or worsening cytopenias. Stable bone disease from myeloma on PET/CT 09/21/2024--No indication to repeat her marrow at this time. 69-year-old female who has had chronic mild to moderate thrombocytopenia that was previously treated with transfusion for which she had an adverse reaction consisting of throat tightness. I previously reviewed her outpatient records from [facility] [place], including review of notes, laboratories, and prior bone marrow biopsy 13 years ago. 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 Most recent platelet count is relatively stable at 54,000 but no clinical bleeding. She was previously referred to weight reduction clinic and may have slow improvement of steatohepatitis with lifestyle modification. Unless she has active bleeding or planned surgery, we will continue observation during treatment of active myeloma to commence next month as noted above. --Agree with recommendation for EGD surveillance for varices (last was 09/2018--negative). This will be deferred during current COVID-19 epidemic. --Prior vitamin B12 and folic acid are normal, for known history of neuropathy. As noted above, I reviewed the negative M spike on serum protein electrophoresis with immunofixation, but positive for Bence Murray protein on urine protein electrophoresis. Her Quantitative immunoglobulins IgG, IgA, and IgM were all within normal limits, however her serum kappa lambda light chain analysis showed a predominance of lambda light chains. --Previous labs for lupus anticoagulant with DRVVT, hexagonal phase phospholipid, anti-cardiolipin IgG and IgA, and beta 2 glycoprotein IgG and IgA were within normal limits. --Evaluated in ED November 2019 for epistaxis which resolved. Platelet count was stable at 12/28/2019 follow-up. She continues surveillance with liver clinic at [facility] and I will continue to follow her every 6 months, sooner if new bleeding issues arise. Review prior extensive notes regarding platelet counts during active myeloma therapy. -- 03/11/2023: Platelets have now declined to 28,000. She had increased bruising around the site of her bone marrow biopsy but no other bleeding. We are continuing to hold her chemotherapy for bone marrow cellularity and assess B12, folate, and copper stores. No indication for active treatment of myeloma at this time given plasma cells 4%. We will continue to follow closely with CBC twice this month then if stable once monthly. --06/10/2023: Platelets still 28,000 with bruising but not bleeding from mucosal surfaces. IR guided biopsy from 03/2023 as above--await second opinion from Dr. Lindquist tomorrow. -- 07/08/2023: Platelets now 24,000 with increased bruising but no bleeding. Further evaluation by Dr. Supa Lindquist for further therapy at [facility] as noted above. -- 10/21/2023: Platelet count has remained in the 35-40,000 range since starting Teclistamab for multiple myeloma. Continue follow-up with Dr. Supa Lindquist for further therapy at [facility]. --01/21/2024, 06/29/2024, 10/05/2024, 11/16/2024: Most recent platelets responding in 50-60,000s range. She has now completed over 1 year of Teclistamab therapy and will continue injections locally. -- 12/29/2024: Platelet count 62,000 but need to recheck next Thursday to determine if she needs platelet transfusion for hepatic ablation procedure at [facility]. Transfuse if platelets less than 50,000. --02/03/2025, 03/16/2025, 04/20/2025, 06/15/2025: Current platelets 45-55,000 without bleeding after previous hepatic ablation. In January we delayed Teclistamab one week due to planned vacation. Continue same dose of Teclistamab if ANC >500 and platelets >25,000. Improved symptoms after palliative radiation to bilateral hips--one dose 02/07/2020, radiation to right hip -09/2021. Will continue to follow on myeloma chemotherapy. Extensive, but stable bone involvement on F-18 PET/CT 12/2020 and 04/2021. Recent increased left neck and shoulder pain. Increased oxycodone dosing to three times daily, no unusual right hip pain is noted above--followed by palliative medicine. -Completed right hip radiation with persistent but improved pain--no new pain issues with follow-up visit with radiation in early March 2022, follow-up as needed. Will continue to follow with palliative medicine. --02/18/2023: Worsening right hip pain--pending PET/CT for restaging as noted above, f/u 3 weeks. -- 03/11/2023: No change in uptake in the right hip on PET/CT. Following with palliative medicine. No indication for reirradiation to right hip unless refractory to medication therapy. No change in symptoms at 07/08/2023 or 01/21/2024 followup. -- 06/29/2024, 09/15/2024: Seen by palliative medicine. Continues gabapentin 400 mg twice daily with oxycodone 10 mg 4 times daily. No progression of disease on restaging whole-body PET/CT reviewed with patient from 09/21/2024. -- 12/29/2024: Recent increased pain from hemorrhoids. Adding topical lidocaine and Anusol suppository. colorectal surgery consult noting patient is not a surgical candidate due to chronic thrombocytopenia. May use opioids as needed and review with palliative medicine. Currently stable symptoms. --02/03/2025, 03/16/2025, 04/20/2025: Palliative medicine followup today--continue compounded lidocaine/steroids for hemorrhoidal pain from . Discussion with primary oncologist at [facility]. Coordination of workup for chronic cough. Review of outside records--transition of Teclistamab and IVIG therapy to [facility] orders reviewed with [facility] 10/05/2024: New liver lesion on ultrasound coordinating MRI liver with [facility] GI. 11/16/2024: Coordinating evaluation by interventional radiology and colorectal surgery for further evaluation of HCC and complicated hemorrhoids respectively. 12/29/2024: Coordinating platelet transfusion as needed before hepatic microwave ablation by interventional radiology at [facility], orders for iron deficiency anemia, ongoing Teclistamab and IVIG therapy for multiple myeloma 02/03/2025, 03/16/2025: Review Teclistamab therapy for myeloma, symptoms one month after hepatic microwave ablation by Interventional radiology, f/u hemorrhoids, f/u iron infusions after Venofer, f/u IVIG infusions for hypogammaglobulinemia. 06/15/2025: Coordination of follow-up with Dr. Flores at due to new lesions suspicious for recurrent hepatocellular carcinoma in segment 6. Orders for platelet transfusions at platelets less than 50,000, IVIG if IgG less than 600. -- Diazepam order in 3 weeks prior to MRI for restaging of hepatocellular carcinoma, AFP and quantitative immunoglobulins surveillance. Future Tests Future scheduled test information is unavailable Pending Tests Test Name Ordered Date Scheduled Date Corrected White Blood Count August 16, 2025 8 :00am Uncorrected WBC CountOctober 2024 8:00amRed Blood CountOctober 2024 8:00amHemoglobinOctober 2024 8:00amHematocritOctober 2024 8:00amMean Corpuscular VolumeOctober 2024 8:00amMean Corpuscular HemoglobinOctober 2024 8:00amMean Corpuscular Hemoglobin ConcentOctober 2024 8:00amRed Cell Distribution WidthOctober 2024 8:00amPlatelet CountOctober 2024 8:00amMean Platelet VolumeOctober 2024 8:00amNeutrophils (%) (Auto) August 16, 2025 8:00amLymphocytes (%) (Auto)August 16, 2025 8:00am Monocytes (%) (Auto)August 16, 2025 8:00amEosinophils (%) (Auto)August 16, 2025 8:00amBasophils (%) (Auto)August 16, 2025 8:00amNucleated RBC Relative Count (auto)August 16, 2025 8:00amNeutrophils # (Auto)August 16, 2025 8:00amLymphocytes # (Auto)August 16, 2025 8:00amMonocytes # (Auto)August 16, 2025 8:00amEosinophils # (Auto)August 16, 2025 8:00amBasophils # (Auto) August 16, 2025 8:00amGlucose LevelOctober 2024 8:00amBlood Urea NitrogenOctober 2024 8:00amCreatinineOctober 2024 8:00amEstimated GFR (CKD-EPI)August 16, 2025 8:00amSodium LevelOctober 2024 8:00am Potassium LevelOctober 2024 8:00amChloride LevelOctober 2024 8:00am Carbon Dioxide LevelOctober 2024 8:00amAnion GapOctober 2024 8:00am Calcium LevelOctober 2024 8:00amTotal ProteinOctober 2024 8:00am AlbuminOctober 2024 8:00amGlobulinOctober 2024 8:00am Albumin/Globulin RatioOctober 2024 8:00amTotal BilirubinOctober 2024 8:00amAspartate Amino Transf (AST/SGOT)August 16, 2025 8:00amAlanine Aminotransferase (ALT/SGPT)August 16, 2025 8:00amAlkaline PhosphataseOctober 2024 8:00amPharmacy Creatinine Clearance (ChemOctober 2024 8:00amN/A January 26, 2020 11:30amN/AJuly 2020 9:05amN/AMarch 2019 11:30amN/A May 03, 2021 9:05amComment (FISH)January 26, 2020 11:30amComment (FISH)May 03, 2021 9:05amComprehensive Metabolic PanelMarch 2024 10:46pm1 Days Comprehensive Metabolic PanelMarch 2024 10:46pm1 DaysComprehensive Metabolic PanelJanuary 2021 11:40amJanuary 2021 11:00amMR abdomen wo/w conSeptember 2024 10:58am2 MonthsAFP Tumor Marker, SerumSeptember 2024 4:07pm7 WeeksComprehensive Metabolic PanelSeptember 2024 4:07pm 7 Weeks Future Visits Future appointment information is unavailable Referrals to Other Providers Reason for Referral Referral Start Date Provider Tre ruffin Contact Information Provider Address Esdras Ferrara Phone: [phone] [facility], [address] [place] [id number] Future Procedures Procedure Name Ordered Date Scheduled Date Complete Blood Count Auto Diff September 15 2:46pm 1 Days Complete Blood Count Auto Diff January 28, 2025 10:46pm 1 Days Complete Blood Count Auto Diff January 28, 2025 10:46pm 1 Days Complete Blood Count Auto Diff January 28, 2025 10:46pm 1 Days Complete Blood Count Auto Diff January 28, 2025 10:46pm 1 Days Complete Blood Count Auto Diff September 15 2:46pm 1 Days Complete Blood Count Auto Diff September 15 2:46pm 1 Days Complete Blood Count Auto Diff December 29 2:00pm 1 Days Complete Blood Count Auto Diff January 28, 2025 10:46pm 1 Days Complete Blood Count Auto Diff January 28, 2025 10:46pm 1 Days Complete Blood Count Auto Diff January 28, 2025 10:46pm 1 Days Complete Blood Count Auto Diff January 28, 2025 10:46pm 1 Days Complete Blood Count Auto Diff January 28, 2025 10:46pm 1 Days Creatinine March 11, 2025 5:26pm 1 Days Creatinine March 11, 2025 5:26pm 1 Days Creatinine March 11, 2025 5:26pm 1 Days Creatinine March 11, 2025 5:26pm 1 Days Creatinine March 11, 2025 5:26pm 1 Days Creatinine March 11, 2025 5:26pm 1 Days Creatinine March 11, 2025 5:26pm 1 Days Creatinine March 11, 2025 5:26pm 1 Days Iron and TIBC Profile December 29, 2024 2:00pm 1 Days Ferritin December 29, 2024 2:00pm 1 Day s Imaging on Disk June 10, 2023 1:39pm 1 Days Send Medical Records to: June 10, 2023 1:39pm 1 Days Cytogenetics Neogenomic January 26, 2020 3:58pm January 26, 2020 11:30am Cytogenetics Neogenomic May 03, 2021 1:13pm Ju ly 2020 9:05am Fish Not Bladder Neogenomic January 26, 2020 3:5 8pm January 26, 2020 11:30am Fish Not Bladder Neogenomic May 03, 2021 1:13p m May 03, 2021 9:05am Flowcytometry Neogenomic January 26, 2020 3:58pm January 26, 2020 11:30am Flowcytometry Neogenomic May 03, 2021 1:13pm J jim 2020 9:05am Complete Blood Count Auto Diff August 09, 2025 9:59am August 16, 2025 8:00am Orders Panel Function Communication Order October 30, 2020 2:41pm October 30, 2020 2:41pm Patient Navigator Distress Screening February 18, 2023 10:20am February 18, 2023 10:20am Patient Navigator Distress Screening December 26, 2022 10:44am December 26, 2022 10:44am Complete Blood Count Auto Diff November 06, 2021 11:40am November 12, 2021 11:00am ANC>=500 September 15, 2024 2:46pm Febru cody 2024 1:00am ANC>=500 September 15, 2024 2:46pm January 19, 2025 12:00am ANC>=500 January 28, 2025 10:46pm January [id number] 12:00am ANC>=500 January 28, 2025 10:46pm April 202024 12:00am ANC>=500 September 15, 2024 2:46pm Novem 2023 1:00am ANC>=500 September 15, 2024 2:46pm Decem 2023 1:00am ANC>=500 September 15, 2024 2:46pm Janua ry 2024 1:00am ANC>=500 September 15, 2024 2:46pm Febru cody 2024 1:00am ANC>=500 January 28, 2025 10:46pm March 12:00am ANC>=500 January 28, 2025 10:46pm March 12:00am ANC>=500 January 28, 2025 10:46pm May [id number] 12:00am ANC>=500 January 28, 2025 10:46pm June 08, 2025 12:00am ANC>=500 January 28, 2025 10:46pm Sept2024 12:00am ANC>=500 January 28, 2025 10:46pm August 16, 2025 12:00am Hold & Call Ordering Physici an if Pt Does Not Meet Criteria September 15, 2024 2:46pm September 28, 2024 1:00am Hold & Call Ordering Physici an if Pt Does Not Meet Criteria September 15, 2024 2:46pm October 27, 2024 1:00am Hold & Call Ordering Physici an if Pt Does Not Meet Criteria September 15, 2024 2:46pm December 08, 2024 1:00am Hold & Call Ordering Physici an if Pt Does Not Meet Criteria September 15, 2024 2:46pm December 29, 2024 1:00am Hold & Call Ordering Physici an if Pt Does Not Meet Criteria January 28, 2025 10:46pm February 16, 2025 12:00am Hold & Call Ordering Physici an if Pt Does Not Meet Criteria January 28, 2025 10:46pm March 07, 2025 12:00am Hold & Call Ordering Physici an if Pt Does Not Meet Criteria January 28, 2025 10:46pm May 27th, 2025 12:00am Hold & Call Ordering Physici an if Pt Does Not Meet Criteria January 28, 2025 10:46pm April 20, 2025 12:00am Hold & Call Ordering Physici an if Pt Does Not Meet Criteria January 28, 2025 10:46pm August 16, 2025 12:00am Hold & Call Ordering Physici an if Pt Does Not Meet Criteria September 15, 2024 2:46pm November 17, 2024 1:00am Hold & Call Ordering Physici an if Pt Does Not Meet Criteria September 15, 2024 2:46pm January 19, 2025 12:00am Hold & Call Ordering Physici an if Pt Does Not Meet Criteria January 28, 2025 10:46pm May 18, 2025 12:00am Hold & Call Ordering Physici an if Pt Does Not Meet Criteria January 28, 2025 10:46pm June 08, 2025 12:00am Hold & Call Ordering Physici an if Pt Does Not Meet Criteria January 28, 2025 10:46pm July 13, 2025 12:00am Hemoglobin >/= 8.0g/dL September 15, 2024 2:46p m November 17, 2024 1:00am Hemoglobin >/= 8.0g/dL September 15, 2024 2:46p m December 29, 2024 1:00am Hemoglobin >/= 8.0g/dL January 28, 2025 10:46pm February 16, 2025 12:00am Hemoglobin >/= 8.0g/dL January 28, 2025 10:46pm March 28, 2025 12:00am Hemoglobin >/= 8.0g/dL September 15, 2024 2:46p m September 28, 2024 1:00am Hemoglobin >/= 8.0g/dL January 28, 2025 10:46pm May 18, 2025 12:00am Hemoglobin >/= 8.0g/dL January 28, 2025 10:46pm July 13, 2025 12:00am No New Heart Problems Report ed Since Last Physician Visit January 30, 2023 8:40am February 06, 2023 12:00am No New Heart Problems Report ed Since Last Physician Visit January 30, 2023 8:40am September 28, 2024 1:00am No New Heart Problems Report ed Since Last Physician Visit March 11, 2025 5:26pm April 20, 2025 12:00am No New Heart Problems Report ed Since Last Physician Visit March 11, 2025 5:26pm May 18, 2025 12:00am No New Heart Problems Report ed Since Last Physician Visit March 11, 2025 5:26pm July 20, 2025 12:00am No New Heart Problems Report ed Since Last Physician Visit January 30, 2023 8:40am October 29, 2023 1:00am No New Heart Problems Report ed Since Last Physician Visit January 30, 2023 8:40am January 03, 2025 1:00am No New Heart Problems Report ed Since Last Physician Visit January 30, 2023 8:40am January 31, 2025 12:00am No New Heart Problems Report ed Since Last Physician Visit January 30, 2023 8:40am March 07, 2025 12:00am Apply O2 via Nasal Cannula 4 L to Maintain SpO2 of >=90% March 28, 2021 1:33pm April 05, 2021 12:00am Apply O2 via Nasal Cannula 4 L to Maintain SpO2 of >=90% March 28, 2021 1:33pm April 12, 2021 12:00am Apply O2 via Nasal Cannula 4 L to Maintain SpO2 of >=90% September 15, 2024 2:46pm September 28, 2024 1:00am Apply O2 via Nasal Cannula 4 L to Maintain SpO2 of >=90% January 30, 2023 8:40am September 28, 2024 1:00am Apply O2 via Nasal Cannula 4 L to Maintain SpO2 of >=90% September 15, 2024 2:46pm October 27, 2024 1:00am Apply O2 via Nasal Cannula 4 L to Maintain SpO2 of >=90% September 15, 2024 2:46pm November 17, 2024 1:00am Apply O2 via Nasal Cannula 4 L to Maintain SpO2 of >=90% September 15, 2024 2:46pm December 08, 2024 1:00am Apply O2 via Nasal Cannula 4 L to Maintain SpO2 of >=90% December 29, 2024 2:00pm January 03, 2025 1:00am Apply O2 via Nasal Cannula 4 L to Maintain SpO2 of >=90% September 15, 2024 2:46pm January 19, 2025 12:00am Apply O2 via Nasal Cannula 4 L to Maintain SpO2 of >=90% January 30, 2023 8:40am January 31, 2025 12:00am Apply O2 via Nasal Cannula 4 L to Maintain SpO2 of >=90% January 30, 2023 8:40am March 07, 2025 12:00am Apply O2 via Nasal Cannula 4 L to Maintain SpO2 of >=90% January 28, 2025 10:46pm March 28, 2025 12:00am Apply O2 via Nasal Cannula 4 L to Maintain SpO2 of >=90% March 11, 2025 5:26pm April 20, 2025 12:00am Apply O2 via Nasal Cannula 4 L to Maintain SpO2 of >=90% January 28, 2025 10:46pm May 18, 2025 12:00am Apply O2 via Nasal Cannula 4 L to Maintain SpO2 of >=90% March 11, 2025 5:26pm May 18, 2025 12:00am Apply O2 via Nasal Cannula 4 L to Maintain SpO2 of >=90% January 28, 2025 10:46pm July 13, 2025 12:00am Apply O2 via Nasal Cannula 4 L to Maintain SpO2 of >=90% March 11, 2025 5:26pm July 20, 2025 12:00am Apply O2 via Nasal Cannula 4 L to Maintain SpO2 of >=90% January 28, 2025 10:46pm August 16, 2025 12:00am Apply O2 via Nasal Cannula 4 L to Maintain SpO2 of >=90% January 30, 2023 8:40am February 06, 2023 12:00am Apply O2 via Nasal Cannula 4 L to Maintain SpO2 of >=90% January 30, 2023 8:40am October 29, 2023 1:00am Apply O2 via Nasal Cannula 4 L to Maintain SpO2 of >=90% September 15, 2024 2:46pm December 29, 2024 1:00am Apply O2 via Nasal Cannula 4 L to Maintain SpO2 of >=90% January 30, 2023 8:40am January 03, 2025 1:00am Apply O2 via Nasal Cannula 4 L to Maintain SpO2 of >=90% December 29, 2024 2:00pm January 10, 2025 12:00am Apply O2 via Nasal Cannula 4 L to Maintain SpO2 of >=90% January 28, 2025 10:46pm February 16, 2025 12:00am Apply O2 via Nasal Cannula 4 L to Maintain SpO2 of >=90% January 28, 2025 10:46pm March 07, 2025 12:00am Apply O2 via Nasal Cannula 4 L to Maintain SpO2 of >=90% January 28, 2025 10:46pm April 20, 2025 12:00am Apply O2 via Nasal Cannula 4 L to Maintain SpO2 of >=90% January 28, 2025 10:46pm June 08, 2025 12:00am Orders Panel Function Communication Order April 10, 2020 4:31pm April 10, 2020 4:31pm Orders Panel Function Communication Order April 10, 2020 4:32pm April 10, 2020 4:32pm Orders Panel Function Communication Order April 11, 2020 8:51am April 11, 2020 8:51am Orders Panel Function Communication Order April 17, 2020 9:49am April 17, 2020 9:49am Orders Panel Function Communication Order April 24, 2020 8:55am April 24, 2020 8:55am Orders Panel Function Communication Order May 15, 2020 9:04am May 15, 2020 9:04am Orders Panel Function Communication Order May 24, 2020 1:41pm May 24, 2020 1:41pm Orders Panel Function Communication Order May 31, 2020 3:25pm May 31, 2020 3:25pm Orders Panel Function Communication Order June 04, 2020 4:11pm June 04, 2020 4:11pm Orders Panel Function Communication Order June 06, 2020 4:06pm June 06, 2020 4:06pm Orders Panel Function Communication Order June 11, 2020 3:38pm June 11, 2020 3:38pm Orders Panel Function Communication Order June 19, 2020 9:25am June 19, 2020 9:25am Orders Panel Function Communication Order June 26, 2020 8:11am June 26, 2020 8:11am Orders Panel Function Communication Order June 26, 2020 1:40pm June 26, 2020 1:40pm Orders Panel Function Communication Order July 10, 2020 8:38am July 10, 2020 8:38am Orders Panel Function Communication Order July 17, 2020 11:46am July 17, 2020 11:46am Orders Panel Function Communication Order July 30, 2020 2:11pm July 30, 2020 2:11pm Orders Panel Function Communication Order July 31, 2020 8:27am July 31, 2020 8:27am Orders Panel Function Communication Order August 21, 2020 10:00am August 21, 2020 10:00am Orders Panel Function Communication Order August 27, 2020 12:18pm August 27, 2020 12:18pm Orders Panel Function Communication Order August 28, 2020 2:06pm August 28, 2020 2:06pm Orders Panel Function Communication Order September 18, 2020 2:13pm September 18, 2020 2:13pm Orders Panel Function Communication Order October 30, 2020 3:04pm October 30, 2020 3:04pm Orders Panel Function Communication Order January 17, 2021 4:26pm January 17, 2021 4:26pm Orders Panel Function Communication Order April 15, 2021 4:16pm April 15, 2021 4:16pm Orders Panel Function Communication Order April 17, 2021 10:15am April 17, 2021 10:15am Orders Panel Function Communication Order April 17, 2021 10:17am April 17, 2021 10:17am Orders Panel Function Communication Order May 14, 2021 8:28am May 14, 2021 8:28am Orders Panel Function Communication Order June 12, 2021 9:56am June 12, 2021 9:56am Orders Panel Function Communication Order August 07, 2021 10:57am August 07, 2021 10:57am Orders Panel Function Communication Order September 04, 2021 10:59am September 04, 2021 10:59am Orders Panel Function Communication Order September 04, 2021 11:42am September 04, 2021 11:42am Orders Panel Function Communication Order September 18, 2021 12:19pm September 18, 2021 12:19pm Orders Panel Function Communication Order September 25, 2021 10:28am September 25, 2021 10:28am Orders Panel Function Communication Order October 02, 2021 11:00am October 02, 2021 11:00am Orders Panel Function Communication Order October 09, 2021 9:30am October 09, 2021 9:30am Orders Panel Function Communication Order October 16, 2021 10:57am October 16, 2021 10:57am Orders Panel Function Communication Order October 22, 2021 5:14pm October 22, 2021 5:14pm Orders Panel Function Communication Order December 04, 2021 10:14am December 04, 2021 10:14am Orders Panel Function Communication Order December 18, 2021 9:34am December 18, 2021 9:34am Orders Panel Function Communication Order January 14, 2022 1:38pm January 14, 2022 1:38pm Orders Panel Function Communication Order February 05, 2022 3:43pm February 05, 2022 3:43pm Orders Panel Function Communication Order February 05, 2022 3:45pm February 05, 2022 3:45pm Orders Panel Function Communication Order March 25, 2022 3:34pm March 25, 2022 3:34pm Orders Panel Function Communication Order March 25, 2022 3:41pm March 25, 2022 3:41pm Orders Panel Function Communication Order April 09, 2022 12:14pm April 09, 2022 12:14pm Orders Panel Function Communication Order April 09, 2022 12:26pm April 09, 2022 12:26pm Orders Panel Function Communication Order June 04, 2022 10:09am June 04, 2022 10:09am Orders Panel Function Communication Order July 15, 2022 3:24pm July 15, 2022 3:24pm Orders Panel Function Communication Order July 23, 2022 10:25am July 23, 2022 10:25am Orders Panel Function Communication Order July 29, 2022 4:12pm July 29, 2022 4:12pm Orders Panel Function Communication Order July 30, 2022 12:00pm July 30, 2022 12:00pm Orders Panel Function Communication Order August 06, 2022 9:26am August 06, 2022 9:26am Orders Panel Function Communication Order August 19, 2022 4:13pm August 19, 2022 4:13pm Orders Panel Function Communication Order August 19, 2022 4:17pm August 19, 2022 4:17pm Orders Panel Function Communication Order August 19, 2022 4:18pm August 19, 2022 4:18pm Orders Panel Function Communication Order August 20, 2022 11:31am August 20, 2022 11:31am Orders Panel Function Communication Order September 03, 2022 11:27am September 03, 2022 11:27am Orders Panel Function Communication Order September 17, 2022 11:10am September 17, 2022 11:10am Orders Panel Function Communication Order September 24, 2022 12:15pm September 24, 2022 12:15pm Orders Panel Function Communication Order September 24, 2022 12:16pm September 24, 2022 12:16pm Orders Panel Function Communication Order October 21, 2022 3:49pm October 21, 2022 3:49pm Orders Panel Function Communication Order October 22, 2022 10:36am October 22, 2022 10:36am Orders Panel Function Communication Order October 30, 2022 10:21am October 30, 2022 10:21am Orders Panel Function Communication Order November 05, 2022 12:08pm November 05, 2022 12:08pm Orders Panel Function Communication Order November 05, 2022 12:49pm November 05, 2022 12:49pm Orders Panel Function Communication Order November 13, 2022 4:13pm November 13, 2022 4:13pm Orders Panel Function Communication Order November 17, 2022 2:47pm November 17, 2022 2:47pm Orders Panel Function Communication Order November 28, 2022 10:59am November 28, 2022 10:59am Orders Panel Function Communication Order December 01, 2022 3:07pm December 01, 2022 3:07pm Orders Panel Function Communication Order December 05, 2022 2:29pm December 05, 2022 2:29pm Orders Panel Function Communication Order December 26, 2022 9:47am December 26, 2022 9:47am Orders Panel Function Communication Order January 29, 2023 11:55am January 29, 2023 11:55am Orders Panel Function Communication Order February 06, 2023 8:32am February 06, 2023 8:32am Orders Panel Function Communication Order October 27, 2023 3:31pm October 27, 2023 3:31pm Orders Panel Function Communication Order November 26, 2023 12:28pm November 26, 2023 12:28pm Orders Panel Function Communication Order September 15, 2024 3:59pm September 15, 2024 3:59pm Orders Panel Function Communication Order October 27, 2024 10:53am October 27, 2024 10:53am Orders Panel Function Communication Order December 08, 2024 5:11pm December 08, 2024 5:11pm Orders Panel Function Communication Order January 02, 2025 2:44pm January 02, 2025 2:44pm Orders Panel Function Communication Order January 10, 2025 10:01am January 10, 2025 10:01am Orders Panel Function Communication Order February 03, 2025 12:13pm February 03, 2025 12:13pm Orders Panel Function Communication Order February 28, 2025 11:55am February 28, 2025 11:55am Orders Panel Function Communication Order March 08, 2025 10:02am March 08, 2025 10:02am Orders Panel Function Communication Order March 28, 2025 12:02pm March 28, 2025 12:02pm Orders Panel Function Communication Order March 28, 2025 12:18pm March 28, 2025 12:18pm Orders Panel Function Communication Order May 29, 2025 11:54am May 29, 2025 11:54am Orders Panel Function Communication Order June 07, 2025 1:55pm June 07, 2025 1:55pm Orders Panel Function Communication Order June 15, 2025 11:32am June 15, 2025 11:32am Orders Panel Function Communication Order June 15, 2025 11:52am June 15, 2025 11:52am Orders Panel Function Communication Order July 05, 2025 4:15pm July 05, 2025 4:15pm Orders Panel Function Communication Order July 14, 2025 11:23am July 14, 2025 11:23am Orders Panel Function Communication Order July 14, 2025 11:24am July 14, 2025 11:24am Orders Panel Function Communication Order August 03, 2025 8:41am August 03, 2025 8:41am Orders Panel Function Communication Order August 03, 2025 8:41am August 03, 2025 8:41am Orders Panel Function Communication Order August 16, 2025 9:27am August 16, 2025 9:27am Orders Panel Function Communication Order April 06, 2020 3:57pm April 06, 2020 3:57pm Orders Panel Function Communication Order April 10, 2020 9:14am April 10, 2020 9:14am Orders Panel Function Communication Order April 10, 2020 4:32pm April 10, 2020 4:32pm Orders Panel Function Communication Order April 11, 2020 8:47am April 11, 2020 8:47am Orders Panel Function Communication Order April 11, 2020 8:49am April 11, 2020 8:49am Orders Panel Function Communication Order April 11, 2020 8:50am April 11, 2020 8:50am Orders Panel Function Communication Order April 11, 2020 8:51am April 11, 2020 8:51am Orders Panel Function Communication Order April 24, 2020 8:53am April 24, 2020 8:53am Orders Panel Function Communication Order May 01, 2020 9:18am May 01, 2020 9:18am Orders Panel Function Communication Order May 07, 2020 3:54pm May 07, 2020 3:54pm Orders Panel Function Communication Order May 21, 2020 3:50pm May 21, 2020 3:50pm Orders Panel Function Communication Order May 29, 2020 8:27am May 29, 2020 8:27am Orders Panel Function Communication Order June 05, 2020 8:15am June 05, 2020 8:15am Orders Panel Function Communication Order June 05, 2020 9:42am June 05, 2020 9:42am Orders Panel Function Communication Order July 17, 2020 12:03pm July 17, 2020 12:03pm Orders Panel Function Communication Order August 07, 2020 9:36am August 07, 2020 9:36am Orders Panel Function Communication Order August 27, 2020 12:08pm August 27, 2020 12:08pm Orders Panel Function Communication Order August 27, 2020 12:16pm August 27, 2020 12:16pm Orders Panel Function Communication Order October 01, 2020 4:26pm October 01, 2020 4:26pm Orders Panel Function Communication Order October 04, 2020 12:22pm October 04, 2020 12:22pm Orders Panel Function Communication Order November 27, 2020 9:34am November 27, 2020 9:34am Orders Panel Function Communication Order May 14, 2021 1:40pm May 14, 2021 1:40pm Orders Panel Function Communication Order May 14, 2021 1:41pm May 14, 2021 1:41pm Orders Panel Function Communication Order June 07, 2021 4:25pm June 07, 2021 4:25pm Orders Panel Function Communication Order June 12, 2021 9:58am June 12, 2021 9:58am Orders Panel Function Communication Order July 10, 2021 3:35pm July 10, 2021 3:35pm Orders Panel Function Communication Order September 04, 2021 11:41am September 04, 2021 11:41am Orders Panel Function Communication Order September 18, 2021 12:25pm September 18, 2021 12:25pm Orders Panel Function Communication Order September 25, 2021 10:25am September 25, 2021 10:25am Orders Panel Function Communication Order October 16, 2021 11:34am October 16, 2021 11:34am Orders Panel Function Communication Order October 16, 2021 11:36am October 16, 2021 11:36am Orders Panel Function Communication Order October 30, 2021 11:39am October 30, 2021 11:39am Orders Panel Function Communication Order November 06, 2021 11:22am November 06, 2021 11:22am Orders Panel Function Communication Order November 08, 2021 10:39am November 08, 2021 10:39am Orders Panel Function Communication Order November 19, 2021 4:31pm November 19, 2021 4:31pm Orders Panel Function Communication Order November 20, 2021 9:48am November 20, 2021 9:48am Orders Panel Function Communication Order December 04, 2021 10:22am December 04, 2021 10:22am Orders Panel Function Communication Order January 01, 2022 12:25pm January 01, 2022 12:25pm Orders Panel Function Communication Order January 01, 2022 12:26pm January 01, 2022 12:26pm Orders Panel Function Communication Order January 13, 2022 2:56pm January 13, 2022 2:56pm Orders Panel Function Communication Order January 22, 2022 9:22am January 22, 2022 9:22am Orders Panel Function Communication Order March 05, 2022 11:34am March 05, 2022 11:34am Orders Panel Function Communication Order March 05, 2022 11:44am March 05, 2022 11:44am Orders Panel Function Communication Order March 19, 2022 9:11am March 19, 2022 9:11am Orders Panel Function Communication Order March 25, 2022 3:33pm March 25, 2022 3:33pm Orders Panel Function Communication Order March 25, 2022 3:34pm March 25, 2022 3:34pm Orders Panel Function Communication Order March 25, 2022 3:35pm March 25, 2022 3:35pm Orders Panel Function Communication Order March 25, 2022 3:39pm March 25, 2022 3:39pm Orders Panel Function Communication Order March 25, 2022 3:58pm March 25, 2022 3:58pm Orders Panel Function Communication Order June 30, 2022 11:02am June 30, 2022 11:02am Orders Panel Function Communication Order July 04, 2022 1:24pm July 04, 2022 1:24pm Orders Panel Function Communication Order July 11, 2022 8:45am July 11, 2022 8:45am Orders Panel Function Communication Order July 15, 2022 3:24pm July 15, 2022 3:24pm Orders Panel Function Communication Order August 19, 2022 4:16pm August 19, 2022 4:16pm Orders Panel Function Communication Order August 20, 2022 11:44am August 20, 2022 11:44am Orders Panel Function Communication Order August 20, 2022 3:08pm August 20, 2022 3:08pm Orders Panel Function Communication Order August 27, 2022 10:18am August 27, 2022 10:18am Orders Panel Function Communication Order September 18, 2022 1:07pm September 18, 2022 1:07pm Orders Panel Function Communication Order October 01, 2022 12:41pm October 01, 2022 12:41pm Orders Panel Function Communication Order October 16, 2022 3:41pm October 16, 2022 3:41pm Orders Panel Function Communication Order November 05, 2022 12:09pm November 05, 2022 12:09pm Orders Panel Function Communication Order November 10, 2022 4:48pm November 10, 2022 4:48pm Orders Panel Function Communication Order November 28, 2022 9:46am November 28, 2022 9:46am Orders Panel Function Communication Order December 05, 2022 12:28pm December 05, 2022 12:28pm Orders Panel Function Communication Order December 25, 2022 3:34pm December 25, 2022 3:34pm Orders Panel Function Communication Order December 26, 2022 9:45am December 26, 2022 9:45am Orders Panel Function Communication Order January 22, 2023 2:16pm January 22, 2023 2:16pm Orders Panel Function Communication Order February 13, 2023 2:33pm February 13, 2023 2:33pm Orders Panel Function Communication Order February 18, 2023 10:23am February 18, 2023 10:23am Orders Panel Function Communication Order March 10, 2023 2:31pm March 10, 2023 2:31pm Orders Panel Function Communication Order September 27, 2024 1:27pm September 27, 2024 1:27pm Orders Panel Function Communication Order October 19, 2024 11:53am October 19, 2024 11:53am Orders Panel Function Communication Order October 27, 2024 9:18am October 27, 2024 9:18am Orders Panel Function Communication Order October 27, 2024 10:53am October 27, 2024 10:53am Orders Panel Function Communication Order December 07, 2024 1:58pm December 07, 2024 1:58pm Orders Panel Function Communication Order January 18, 2025 4:14pm January 18, 2025 4:14pm Orders Panel Function Communication Order February 15, 2025 3:12pm February 15, 2025 3:12pm Orders Panel Function Communication Order March 03, 2025 3:20pm March 03, 2025 3:20pm Orders Panel Function Communication Order March 28, 2025 12:15pm March 28, 2025 12:15pm Orders Panel Function Communication Order March 28, 2025 12:16pm March 28, 2025 12:16pm Orders Panel Function Communication Order March 28, 2025 12:17pm March 28, 2025 12:17pm Orders Panel Function Communication Order April 11, 2025 9:58am April 11, 2025 9:58am Orders Panel Function Communication Order April 20, 2025 9:40am April 20, 2025 9:40am Orders Panel Function Communication Order April 20, 2025 10:00am April 20, 2025 10:00am Orders Panel Function Communication Order April 20, 2025 10:31am April 20, 2025 10:31am Orders Panel Function Communication Order June 07, 2025 1:50pm June 07, 2025 1:50pm Orders Panel Function Communication Order June 07, 2025 1:55pm June 07, 2025 1:55pm Orders Panel Function Communication Order June 14, 2025 3:58pm June 14, 2025 3:58pm Orders Panel Function Communication Order July 05, 2025 2:17pm July 05, 2025 2:17pm Orders Panel Function Communication Order August 02, 2025 11:17am August 02, 2025 11:17am Orders Panel Function Communication Order August 02, 2025 1:20pm August 02, 2025 1:20pm Orders Panel Function Communication Order August 09, 2025 9:58am August 09, 2025 9:58am Orders Panel Function Communication Order August 16, 2025 9:28am August 16, 2025 9:28am Orders Panel Function Communication Order August 16, 2025 9:28am August 16, 2025 9:28am Orders Panel Function Communication Order August 16, 2025 9:29am August 16, 2025 9:29am Platelets>=50,000 September 15, 2024 2:46pm [facility] 2024 1:00am Platelets>=50,000 September 15, 2024 2:46pm Feb ruary 2024 1:00am Platelets>=50,000 September 15, 2024 2:46pm Dec 2024 12:00am Platelets>=50,000 January 28, 2025 10:46pm February 16, 2025 12:00am Platelets>=50,000 January 28, 2025 10:46pm March 072024 12:00am Platelets>=50,000 January 28, 2025 10:46pm April 20, 2025 12:00am Platelets>=50,000 January 28, 2025 10:46pm May 18, 2025 12:00am Platelets>=50,000 January 28, 2025 10:46pm Augus t 2024 12:00am Platelets>=50,000 January 28, 2025 10:46pm Septe mber 2024 12:00am Platelets>=50,000 September 15, 2024 2:46pm Nov ember 2023 1:00am Platelets>=50,000 September 15, 2024 2:46pm Dec ember 2023 1:00am Platelets>=50,000 September 15, 2024 2:46pm Akshat uary 2024 1:00am Platelets>=50,000 January 28, 2025 10:46pm March 032024 12:00am Platelets>=50,000 January 28, 2025 10:46pm Octob er 2024 12:00am Proceed with Treatment August 07, 2021 8:41am August 07, 2021 8:41am Proceed with Treatment August 07, 2021 10:57am August 07, 2021 10:57am Proceed with Treatment February 19, 2022 8:25am A pril 2021 8:25am Proceed with Treatment February 19, 2022 9:13am A pril 2021 9:13am Proceed with Treatment September 27, 2024 1:26p m September 28, 2024 1:00am Proceed with Treatment October 27 10:52am October 27, 2024 1:00am Proceed with Treatment January 28, 2025 10:46pm March 07, 2025 12:00am Proceed with Treatment August 16, 2025 9:27am August 16, 2025 12:00am Proceed with Treatment November 13, 2022 4:13pm November 14, 2022 9:30am Proceed with Treatment December 07, 2024 1:57pm December 08, 2024 1:00am Proceed with Treatment January 18, 2025 4:14pm M arch 2024 12:00am Proceed with Treatment February 15, 2025 3:11pm A pril 2024 12:00am Proceed with Treatment January 28, 2025 10:46pm April 20, 2025 12:00am Proceed with Treatment April 20, 2025 9:39am Ju ne 2024 12:00am Proceed with Treatment April 20, 2025 9:58am Ju ne 2024 12:00am Proceed with Treatment June 07, 2025 1:50pm A ugust 2024 12:00am Treat Based on the Following Parameters: March 28, 2025 12:17pm April 20, 2025 12:00am Treat Based on the Following Parameters: March 28, 2025 12:17pm May 18, 2025 12:00am Treat Based on the Following Parameters: March 28, 2025 12:17pm July 20, 2025 12:00am Complete Blood Count Auto Diff July 27, 2025 4:07pm 7 Weeks Immunofixation,Serum July 27 4:07pm 7 Weeks Immunoglobulins A/G/M, Qn, Ser July 27, 2025 11:07am Immunoglobulins A/G/M, Qn, SerSept2024 4:07pm7 WeeksFree K+L LT Chains, Qn, SSept2024 4:07pm7 WeeksProtein Electrophoresis, Serum July 27, 2025 4:07pm7 Weeks Future Medications Future medication information is unavailable Patient Instructions Instruction Admit Date Carfilzomib CyclophosphamideOct2024 7:59am Goals Acute Goals Author Authored Date Maintain/increase activity l evels * Understands factors that may lead to activity intolerance * Helps perform self care activities * Maintains maximum range of motion * Increase/regain muscle mass and strength * Maintains VS WNL during activity * Maintain intact skin integrity [facility]: [facility] Dis[facility] Inst[facility] Ambulatory Orders* Imaging on Disk Time Frame: 1 Day, Location: Determined By Patient * Send Medical Records to: Time Frame: 1 Day, Location: Determined By Patient
--- OUTSIDE RECORDS SUMMARY | 2025-08-17 16:20 | XMS_ITS | Encounter Summary ---
Author Organization [facility] Address [address] [place] [id number] Care Team Providers Care Gang Punch Operator Name Role Phone Vitaliy Thomson MD Primary Care Provider [phone] Daniella Lima RADIOLOGY TECHNICIAN Unavailable [phone] Source Comments In the event this information is protected by the Federal Confidentiality of Alcohol and Drug AbusePatient Records regulations: The Federal rules restrict any use of the information to criminally investigate or prosecute any alcohol or drug abuse patient.[facility] Reason for Referral * Outpatient Procedure (Routine) - New RequestSpecialtyDiagnoses / Procedures Referred By ContactReferred To [facility] Diagnoses Aneurysm of ascending aorta without rupture Essential hypertension Hyperlipidemia, unspecified hyperlipidemia type Obesity, Class III, BMI 40-49.9 (morbid obesity) (HCC) 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 (nonalcoholic steatohepatitis) (HCC) Smoldering myeloma Procedures ECG COMPLETE ECG ROUTINE ECG W/LEAST 12 LDS W/I&[place] [address] [place] [address] Phone: tel: fax: [facility] [address] [place] [address] [place] [address] Referral IDStatusReasonStart DateExpiration DateVisits RequestedVisits [id number] Request Auto-Generated Referral Reason for Visit * ReasonCommentsCardiology Follow Up Encounter Details DateTypeDepartmentCare Team (Latest Contact Info)Oagginrccmd14/16/2025 4:20 PM EDTOffice Visit Cardiology [address] [place] [address] [place] [address] [place] [address] Aneurysm of ascending aorta without rupture (Primary Dx); Essential hypertension; Hyperlipidemia, unspecified hyperlipidemia type; Obesity, Class III, BMI >= 40; 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 (nonalcoholic steatohepatitis) (HCC); Smoldering myeloma Social History Tobacco UseTypesPacks/DayYears UsedDateSmoking Tobacco: MdtjguZxzzmelzvd689 07/25/1986 - 07/25/2009Smokeless Tobacco: NeverAlcohol UseStandard Drinks/Week CommentsNo0 (1 standard drink = 0.6 oz pure alcohol)PHQ-2AnswerDate RecordedPHQ2 Qdjbm387Area Deprivation IndexAnswerDate RecordedNational Score (1-100), lower number is lower qeth470304/13/2023State Score (1-10), lower number is lower bkhl9153Data from: https://www.neighborhoodatlas.medicine.[facility].edu/. Last address used for hxkabvvivtf137 [place] 3CommentsNoSex and Gender InformationValueDate RecordedSex Assigned at BirthNot on fileLegal Sex Frbwcl5810/03/2012 8:01 AM ESTGender IdentityNot on fileSexual OrientationNot on filedocumented as of this encounter Last Filed Vital Signs Vital SignReadingTime TakenCommentsBlood Vwykckjm490/7610 4:10 PM EDT Xsgta054808/17/2025 4:10 PM EDTTemperature--Respiratory Rate--Oxygen Saturation-- Inhaled Oxygen Concentration--Xddzgm91.8 kg (186 lb 15.2 oz)08/17/2025 4:10 PM DYTQlbzmk815.5 cm (5' 2 )08/17/2025 4:10 PM EDTBody Mass Index34.191 4:10 PM EDTdocumented in this encounter Functional Status * Are you deaf or do you have serious difficulty hearing?AnswerDate of PmfzojvtdtPhkdcbNo54/26/2019 3:12 PM Edilberto Chester RN * Are you blind or do you have serious difficulty seeing, even when wearing glasses?AnswerDate of MluajrxthkRpvapcZi82/26/2019 3:12 PM Edilberto Chester RN * Do you have serious difficulty walking or climbing stairs?AnswerDate of OjhwmknenhAkoenbWg33/26/2019 3:12 PM Edilberto Chester RN * Do you have difficulty dressing or bathing?AnswerDate of AssessmentAuthorNo 04/27/2019 3:12 PM Edilberto Chester RN * Because of a physical, mental, or emotional condition, do you have difficulty doing errands alone such as visiting a doctor's office or shopping?AnswerDate of HvlptvsbsvXefizcBk78/26/2019 3:12 PM Edilberto Chester RN documented as of this encounter Mental Status * Because of a physical, mental, or emotional condition, do you have serious difficulty concentrating, remembering, or making decisions?AnswerEntry Date KddiqsEg63/26/2019 3:12 PM Edilberto Chester RN documented in this encounter Progress Notes * Yocasta Ledesma MA - 08/17/2025 4:35 PM EDT Slide Fastener Chain Assembler present: Yocasta Ledesma MA * Juan J Mendez MD - 08/17/2025 4:18 PM EDT SUBJECTIVE: Mojgan Euceda is a 69 year old female. Patient presents with: Cardiology Follow Up Mojgan Euceda was referred by Self HPI: The patient is a pleasant, 69-year-old female, who underwent extensive evaluation at the [facility], April 2019, after presenting with chest discomfort. [...] Yes, Claudication:No CONDITIONS: Hypertension: Yes, Heart failure:No, [place] [employer] Functional Classification: Class II, Atrial [...] file Gets together: Not on file Attends mandaeism service: Not on file Active member of [...] pacemaker/ICD:No, Median sternotomy scar:No, Sternal instability:No CARDIAC: [place] beat not localized, Cardiac thrill:No, Heart rate [...] which included preparing to see the patient, mhou-id-sspx patient care, completing clinical documentation, performing a [...] Plan of Treatment DateTypeDepartmentCare Team (Latest Contact Info)Mesokczkfqn42/22/2026 2:00 PM EDTOffice Visit Cardiology [address] [place] [address] [place] [address] [place] [address] Return in about 8 months (around 04/17/2026).documented as of this encounter Goals GoalPatient Goal TypeAssociated ProblemsRecent ProgressPatient-Stated?Author Blood Pressure < 130/80 Blood Jmtmcyyg951/76(08/17/2025 4:10 PM EDT)Juan J Perez, MDdocumented as [...] EDT)ComponentValueRef RangeTest Method Analysis TimePerformed AtPathologist SignatureVentricular Ddqn83CQCBBNLB AND VASCULAR INSTITUTEAtrial Oewi31XUJWZIUW AND VASCULAR INSTITUTEP-R Syfnujjw077 msHEART AND VASCULAR INSTITUTEQRS Beomjhdw68ouGWMOU AND VASCULAR INSTITUTEQT Mxwodwlg581piZUQGA AND VASCULAR INSTITUTEQTC Calculation (Jessi)422msHEART AND VASCULAR INSTITUTECalculated P Ltth66gehqhsrOVVKI AND VASCULAR INSTITUTE Calculated R [place]-4degreesHEART AND VASCULAR INSTITUTECalculated T Axis36 degreesHEART AND VASCULAR INSTITUTESpecimen (Source)Anatomical Location / LateralityCollection Method / VolumeCollection TimeReceived Time08/17/2025 4:08 PM EDT Impressions [facility] - 08/19/2025 11:45 AM EDT NORMAL SINUS RHYTHM Confirmed by ARNULFO HENDERSON M.D. ([id number]) on 08/19/2025 11:45:15 AM Narrative [facility] [place] - 08/19/2025 11:45 AM EDT NAME : MOJGAN EUCEDA PID : [id number] : 1955 Gender : Female Race : ORD : [id number] Procedure Date : Aug 17 2025 16:08:55 [...] TypeResult StatusMark Roberto Mendez MDEKGFinal Result Performing OrganizationAddressCity/State/[facility] CodePhone Number [facility] [facility] [address] [phone] documented in this encounter Visit Diagnoses Diagnosis [...] Vitaliy Thomson MD [address] [place] [address] [facility] Daniella Lima NP [address] [place] [address] ReferringFamily Medicine04/18/19documented as of this encounter
--- OUTSIDE RECORDS SUMMARY | 2025-08-22 14:20 | XMS_ITS | Encounter Summary ---
Author Organization [facility] Address [address] [place] [address] Care Team Providers Care Convention Worker Name Role Phone Vitaliy Thomson MD Unavailable [phone] Sima Paul RN Unavailable [phone] Power Swain DO Primary Care Provider [phone] Reason for Visit * ReasonCommentsCoughURIPain With Breathing Encounter Details DateTypeDepartmentCare Team (Latest Contact Info)Opoeevppqkd81/21/2025 2:20 PM EDTFollow-Up Formerly [facility] [address], [address] [place] [phone] Power Swain DO [address] [facility] [address] [place] [address] COPD with acute exacerbation (HCC) (Primary Dx); [...] on one occasion?Never06/15/2025PHQ-2AnswerDate Recorded Patient Health Questionnaire-2 Noszo532CommentsNoSex and Gender InformationValueDate RecordedSex Assigned at BirthNot on fileLegal SexFemale 01/14/2023 6:38 PM EDTGender IdentityNot on fileSexual OrientationNot on file OccupationIndustryJob Start DateJob End DateRetiredNot on fileNot on fileNot on filedocumented as of this encounter Last Filed Vital Signs Vital SignReadingTime TakenCommentsBlood Eygpsbaf879/6608/22/2025 2:32 PM EDT Upktl484108/22/2025 2:32 PM THKKapappldjxa75.5 ??C (97.7 ??F)08/22/2025 2:32 PM EDTRespiratory Jzpm5537 2:32 PM EDTOxygen Qagatvddnj77%08/22/2025 2:32 PM EDTInhaled Oxygen Concentration--Npszex03.5 kg (193 lb)08/22/2025 2:32 PM EDT Kvuutw321 cm (5' 3 )08/22/2025 2:32 PM EDTBody [...] 1 tablet (40 mg) by mouth Daily XUNILED-VXGVJLCSYWL-QXUTIKMOEF (BREZTRI AEROSPHERE) 160-9-4.8 MCG/ACT AEROSOL Inhale 2 [...] Plan of Treatment DateTypeDepartmentCare Team (Latest Contact Info)Cibxzvuuhjv25/10/2025 10:00 AM ESTOffice Visit [facility] [address], [address] [phone] Power Swain DO [address] [facility] 340 [place] [address] documented as of this encounter Procedures Procedure NamePriorityDate/TimeAssociated DiagnosisCommentsPOCT RAPID STREP A Kxjtmtk0508/22/2025 3:10 PM EDT COPD with acute exacerbation (HCC) PNEUMONIA (HTRX)Mcpiytt2108/22/2025 3:00 PM EDT COPD with acute exacerbation (HCC) Pharyngitis, unspecified etiology documented in this encounter Results * POCT rapid strep A manually resulted (08/22/2025 3:10 PM EDT)ComponentValueRef RangeTest MethodAnalysis TimePerformed AtPathologist SignatureRapid Strep A ScreenNegativeNegative, None DetectedSpecimen (Source)Anatomical Location / LateralityCollection Method / VolumeCollection TimeReceived UqghVtqh20/21/2025 3:10 PM EDT Narrative Authorizing ProviderResult TypeResult StatusDaniel Brynn DOPOINT OF CARE TEST ENTER/EDIT ORDERABLESFinal Result * (ABNORMAL) PNEUMONIA (HTRX) (08/22/2025 3:00 PM EDT)ComponentValueRef Range Test MethodAnalysis TimePerformed AtPathologist SignatureSTREPTOCOCCUS PYOGENES (GROUP A STREP) (RESPIRATORY)019.961 - 24.689 ppm08/23/2025 6:49 AM EDTHealthTrackRx at LabPortSTREPTOCOCCUS PYOGENES (GROUP A STREP) (RESPIRATORY)Not Vhlxwxxz01.961 - 24.689 ppm08/23/2025 6:49 AM EDT [facility] at LabPortSTREPTOCOCCUS PNEUMONIAE (RESPIRATORY)019.961 - 24.689 ppm08/23/2025 6:49 AM EDTHealthTrackRx at LabPortSTREPTOCOCCUS PNEUMONIAE (RESPIRATORY)Not Uoocihyz44.961 - 24.689 ppm08/23/2025 6:49 AM EDT [facility] at LabPortSTREPTOCOCCUS AGALACTIAE (GROUP B STREP) (RESPIRATORY) 019.961 - 24.689 ppm08/23/2025 6:49 AM EDTHealthTrackRx at [facility] STREPTOCOCCUS AGALACTIAE (GROUP B STREP) (RESPIRATORY)Not Lmypgakj55.961 - 24.689 ppm08/23/2025 6:49 AM EDTHealthTrackRx at LabPortSTAPHYLOCOCCUS AUREUS (RESPIRATORY)019.961 - 24.689 ppm08/23/2025 6:49 AM EDTHealthTrackRx at LabPortSTAPHYLOCOCCUS AUREUS (RESPIRATORY)Not Mhkohvhs20.961 - 24.689 ppm 08/23/2025 6:49 AM EDTHealthTrackRx at LabPortSERRATIA MARCESCENS (RESPIRATORY)019.961 - 24.689 ppm08/23/2025 6:49 AM EDTHealthTrackRx at LabPortSERRATIA MARCESCENS (RESPIRATORY)Not Swrxhajx87.961 - 24.689 ppm 08/23/2025 6:49 AM EDTHealthTrackRx at LabPortRESPIRATORY SYNCYTIAL VIRUS (RESPIRATORY)023.000 - 31.953 ppm08/23/2025 6:49 AM EDTHealthTrackRx at LabPortRESPIRATORY SYNCYTIAL VIRUS (RESPIRATORY)Not Yclgkjyi98.000 - 31.953 ppm08/23/2025 6:49 AM EDTHealthTrackRx at LabPortPSEUDOMONAS AERUGINOSA (RESPIRATORY)31.113(A)19.961 - 24.689 ppm08/23/2025 6:49 AM EDTHealthTrackRx at LabPortPSEUDOMONAS AERUGINOSA (RESPIRATORY)Detected(A)19.961 - 24.689 ppm 08/23/2025 6:49 AM EDTHealthTrackRx at LabPortPROTEUS MIRABILIS, VULGARIS (RESPIRATORY)019.961 - 24.689 ppm08/23/2025 6:49 AM EDTHealthTrackRx at LabPortPROTEUS MIRABILIS, VULGARIS (RESPIRATORY)Not Mseeuznh68.961 - 24.689 ppm08/23/2025 6:49 AM EDTHealthTrackRx at LabPortPARAINFLUENZA VIRUS (TYPES 1, 2, 3 ,4) (RESPIRATORY)023.000 - 31.487 ppm08/23/2025 6:49 AM EDTHealthTrackRx at LabPortPARAINFLUENZA VIRUS (TYPES 1, 2, 3 ,4) (RESPIRATORY)Not Detected 23.000 - 31.487 ppm08/23/2025 6:49 AM EDTHealthTrackRx at LabPortMYCOPLASMA PNEUMONIAE (RESPIRATORY)019.961 - 24.689 ppm08/23/2025 6:49 AM EDT [facility] at LabPortMYCOPLASMA PNEUMONIAE (RESPIRATORY)Not Blsmfbdh84.961 - 24.689 ppm08/23/2025 6:49 AM EDTHealthTrackRx at LabPortMORAXELLA CATARRHALIS (RESPIRATORY)019.961 - 24.689 ppm08/23/2025 6:49 AM EDT [facility] CareMORAXELLA CATARRHALIS (RESPIRATORY)Not Puyoupwh08.961 - 24.689 ppm08/23/2025 6:49 AM EDTHealthTrackRx at LabPortLEGIONELLA PNEUMOPHILA (RESPIRATORY)019.961 - 24.689 ppm08/23/2025 6:49 AM EDT [facility] at LabPortLEGIONELLA PNEUMOPHILA (RESPIRATORY)Not Ihelgrfo06.961 - 24.689 ppm08/23/2025 6:49 AM EDTHealthTrackRx at [facility] CareKLEBSIELLA PNEUMONIAE, OXYTOCA (RESPIRATORY)019.961 - 24.689 ppm08/23/2025 6:49 AM EDT [facility] at LabPortKLEBSIELLA PNEUMONIAE, OXYTOCA (RESPIRATORY)Not Legqpokr79.961 - 24.689 ppm08/23/2025 6:49 AM EDTHealthTrackRx at [facility] INFLUENZA VIRUS, A, B (RESPIRATORY)023.000 - 29.803 ppm08/23/2025 6:49 AM EDT [facility] at [facility] CareINFLUENZA VIRUS, A, B (RESPIRATORY)Not Uidowfah53.000 - 29.803 ppm08/23/2025 6:49 AM EDTHealthTrackRx at [facility] CareHUMAN METAPNEUMOVIRUS (RESPIRATORY)023.000 - 33.630 ppm08/23/2025 6:49 AM EDT [facility] METAPNEUMOVIRUS (RESPIRATORY)Not Bfbdqwiw78.000 - 33.630 ppm08/23/2025 6:49 AM EDTHealthTrackRx at [facility] CareHAEMOPHILUS INFLUENZAE (RESPIRATORY)019.961 - 24.689 ppm08/23/2025 6:49 AM EDT [facility] at LabPortHAEMOPHILUS INFLUENZAE (RESPIRATORY)Not Kytnibvt45.961 - 24.689 ppm08/23/2025 6:49 AM EDTHealthTrackRx at LabPortESCHERICHIA COLI (RESPIRATORY)019.961 - 24.689 ppm08/23/2025 6:49 AM EDTHealthTrackRx at LabPortESCHERICHIA COLI (RESPIRATORY)Not Whjzuuen16.961 - 24.689 ppm08/23/2025 6:49 AM EDTHealthTrackRx at LabPortENTEROVIRUS D68 (RESPIRATORY)023.000 - 32.268 ppm08/23/2025 6:49 AM EDTHealthTrackRx at LabPortENTEROVIRUS D68 (RESPIRATORY)Not Mmktdcof45.000 - 32.268 ppm08/23/2025 6:49 AM EDT [facility] at LabPortOTHER CORONAVIRUSES (229E, NL63, HKU1, OC43) (RESPIRATORY)023.000 - 30.477 ppm08/23/2025 6:49 AM EDTHealthTrackRx at LabPortOTHER CORONAVIRUSES (229E, NL63, HKU1, OC43) (RESPIRATORY)Not Detected 23.000 - 30.477 ppm08/23/2025 6:49 AM EDTHealthTrackRx at LabPortCHLAMYDIA PNEUMONIAE (RESPIRATORY)019.961 - 24.689 ppm08/23/2025 6:49 AM EDT [facility] at LabPortCHLAMYDIA PNEUMONIAE (RESPIRATORY)Not Wozzkqts60.961 - 24.689 ppm08/23/2025 6:49 AM EDTHealthTrackRx at LabPortBORDETELLA PERTUSSIS, PARAPERTUSSIS, BRONCHISEPTICA (RESPIRATORY)019.961 - 24.689 ppm08/23/2025 6:49 AM EDTHealthTrackRx at LabPortBORDETELLA PERTUSSIS, PARAPERTUSSIS, BRONCHISEPTICA (RESPIRATORY)Not Hxldootk73.961 - 24.689 ppm08/23/2025 6:49 AM EDTHealthTrackRx at LabPortACINETOBACTER BAUMANNII (RESPIRATORY)019.961 - 24.689 ppm08/23/2025 6:49 AM EDTHealthTrackRx at LabPortACINETOBACTER BAUMANNII (RESPIRATORY)Not Mmeklhdr53.961 - 24.689 ppm08/23/2025 6:49 AM EDT [facility] at LabPortHTRX COVID-19 IUTSKJPWWNA567.000 - 31.947 ppm 08/23/2025 6:49 AM EDTHealthTrackRx at LabPark[facility] HospitalHTRX COVID-19 CORONAVIRUSNot Zivvfktu16.000 - 31.947 ppm08/23/2025 6:49 AM EDTHealthTrackRx at [facility]Park[facility] RHINOVIRUS/ENTEROVIRUS (RESPIRATORY)29.8(A)23.000 - 30.000 ppm08/23/2025 6:49 AM EDTHealthTrackRx at LabParkview Noble HospitalRHINOVIRUS/ENTEROVIRUS (RESPIRATORY)Detected(A) 23.000 - 30.000 ppm08/23/2025 6:49 AM EDTHealthTrackRx at LabParkview Noble HospitalADENOVIRUS HADV-B (RESPIRATORY)023.000 - 31.833 ppm08/23/2025 6:49 AM EDTHealthTrackRx at LabPark[facility] HospitalADENOVIRUS HADV-B (RESPIRATORY)Not Rffipfwr08.000 - 31.833 ppm 08/23/2025 6:49 AM EDTHealthTrackRx at LabParkview Noble HospitalENTEROBACTER CLOACAE COMPLEX, KLEBSIELLA (ENTEROBACTER) AEROGENES (EVZZHQQM475.961 - 24.689 ppm08/23/2025 6:49 AM EDTHealthTrackRx at LabPortENTEROBACTER CLOACAE COMPLEX, KLEBSIELLA (ENTEROBACTER) AEROGENES (RESPIRATNot Vhubqjkw56.961 - 24.689 ppm08/23/2025 6:49 AM EDTHealthTrackRx at LabPortSpecimen (Source)Anatomical Location / LateralityCollection Method / VolumeCollection TimeReceived TimePulmonary 08/22/2025 3:00 PM EDT1 10:26 PM EDT Narrative Authorizing ProviderResult TypeResult StatusDaniel Brynn DOLAB BLOOD ORDERABLES Edited Result - FinalPerforming OrganizationAddressCity/State/ZIP CodePhone Number [facility] [address] [address] documented in this encounter Visit Diagnoses Diagnosis COPD with acute exacerbation (HCC)- Primary Pharyngitis, unspecified etiology documented in this encounter Additional Health Concerns AssessmentNoted TimePHQ-9 Depression Total Score: 9:00 AM EST documented as of this encounter Care Teams Team MemberRelationshipSpecialtyStart DateEnd Date Vitaliy Thomson MD [address] [place] [address] PCP - [facility]CO [facility]03/26/23 Power Swain DO [address] [address] PCP - GeneralFamily Medicine04/25/25 Sima Paul, LES [address] [place] [address] Registered NurseFamily Lavnejvg39/23/23documented as of this encounter
[2025-08-27] VITALS (18 sets, daily range): BP systolic 120–131; BP diastolic 64–83; PULSE 69–79; TEMP 36.6; O2SAT 96–98; BMI 34.8
--- OUTSIDE RECORDS SUMMARY | 2025-08-27 18:09 | XMS_ITS | Clinical Summary ---
Author Organization [facility] Address [address] [place] [address], [address] [place] [address] Care Team Providers Care Manager Safe Name Role Phone Unavailable Primary Care Provider Unavailabl e Social History Tobacco UseTypesPacks/DayYears UsedDateSmoking Tobacco: Never Assessed CommentsUnknownSex and Gender InformationValueDate RecordedSex Assigned at Not on fileLegal UpyMxtcff50/10/2013 1:13 PM ESTGender IdentityNot on fileSexual OrientationNot on file Plan of Treatment Not on file
--- OUTSIDE RECORDS SUMMARY | 2025-08-27 18:09 | XMS_ITS | Clinical Summary ---
Author Organization [facility] Address [address] [place] [address] Care Team Providers Care Mobile Tester Name Role Phone Vitaliy Thomson MD Primary Care Provider [phone] Daniella Lima NOVELTY TWISTER TENDER Unavailable [phone] Allergies Active AllergyReactionsCriticalityNoted DateCommentsAdhesiveOther: See Comments 05/15/20162268WjehumcrwalBblxhofq24/16/9228QahoypkzcgqUmyxczl99/22/2014Erythromycin Hives10/31/2013LatexOther: See Accncjxu10/12/1164XeceycftiyjiHcjbi08/24/2019 PlateletsOther: See Driafwji00/20/2019 Throat Swelling; likely angioedema TetracyclineOther: See Ngdywvvt26/12/2019Doxycycline WmybhdqMuozttli45/16/2006 Diclofenac TlulrkOhuft73/24/2019 Medications MedicationSigDispense QuantityRefillsLast FilledStart DateEnd DateStatus ADVAIR DISKUS 250-50 mcg/dose DsDv Inhale 1 Puff as instructed as needed. 05/02/2013ctive OXYCODONE-ACETAMINOPHEN 10-325 mg tablet Take 1 tablet by mouth every 4 hours as needed.05/07/2013ctive OMEPRAZOLE 40 mg capsule Take 40 mg by mouth once daily.05/02/2013ctive carvedilol (COREG) 12.5 mg tablet Take 1 tablet by mouth twice daily with meals.04/27/2019Active atorvastatin (LIPITOR) 80 mg tablet Take 1 tablet by mouth daily at bedtime. 30 tablet 04/27/2019Active ALBUTEROL INHALATION Inhale as instructed.11/24/2017Active metFORMIN (GLUCOPHAGE) 500 mg tablet TAKE 1 TABLET BY MOUTH TWICE A DAY WITH A MEAL05/18/2020Active gabapentin (NEURONTIN) 100 mg capsule TAKE ONE CAPSULE BY MOUTH THREE TIMES A DAY FOR 15 DAYS1Active NOVOLOG FLEXPEN U-100 INSULIN 100 unit/mL (3 mL) 04/28/2022ctive LEVEMIR FLEXTOUCH U-100 INSULIN 100 unit/mL (3 mL) injection pen INJECT 22 UNITS SUBCUTANEOUSLY ONCE DAILY, INCREASE BY 2 UNITS FOR GLUCOSE LEVELS GREATER THAN 0231401/24/2022ctive semaglutide (OZEMPIC) 0.25 mg or 0.5 mg(2 mg/1.5 mL) pen injector Semaglutide (Ozempic) 0.25 mg or 0.5 mg(2 mg/1.5 mL) Pen Injector Active 0.5 MG SUBCUT every week September 24, 2020 12:34pm09/24/2020Active potassium chloride SR (MICRO-K) 10 mEq CR capsule Take 10 mEq by mouth once daily.02/24/2022ctive Cholecalciferol, Vitamin D3, 125 mcg (5,000 unit) cap TAKE 1 CAPSULE BY MOUTH EVERY DAY FOR 90 DAYS09/04/2022ctive cyanocobalamin, vitamin B-12, 1,000 mcg cap 1,000 mcg.09/15/2018Active lisinopril (ZESTRIL, PRINIVIL) 5 mg tablet Take 1 tablet by mouth once daily. 30 tablet Discontinued Active Problems ProblemNoted DateDiagnosed Date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)07/11/2019Obesity, Class III, BMI >= 4006Atypical chest pain04/19/2019Diabetes mellitus type 2, controlled, without complications 04/19/2019Thoracic ascending aortic sxcbuvrt47/18/2019COPD (chronic obstructive pulmonary disease)04/19/2019GERD (gastroesophageal reflux disease)04/19/2019 Smoldering oogfjno0504/19/20191944Naztkwfmohxsekjt90/30/2014Generalized osteoarthrosis, unspecified site04/15/2006Unspecified vitamin D deficiency 04/15/2006Sleep apnea04/15/2006Monoclonal ihhventdlygpbvk61/25/2006Myalgia and myositis, pcogaofkshf43/25/2006 Encounters DateTypeDepartmentCare OpcmKrsewdcnbto07/16/2025 4:20 PM EDTOffice Visit Cardiology [address] [facility] [place] [address] Juan J Mendez MD Aneurysm of ascending aorta without rupture (Primary Dx); Essential hypertension; Hyperlipidemia, unspecified hyperlipidemia type; Obesity, Class III, BMI >= 40; 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) (HCC); Smoldering lbqgxik9308/17/2025Travelfrom Last 3 Months Family History Medical HistoryRelationCommentsEmphysemaFatherHeartFatherCancerMothercolon at age 79Coronary Artery DiseaseMotherRelationStatusCommentsFatherMother Social History Tobacco UseTypesPacks/DayYears UsedDateSmoking Tobacco: IdvmoyShehizntdg687 07/25/1986 - 07/25/2009Smokeless Tobacco: NeverAlcohol UseStandard Drinks/Week CommentsNo0 (1 standard drink = 0.6 oz pure alcohol)PHQ-2AnswerDate RecordedPHQ2 Kmuyr989Area Deprivation IndexAnswerDate RecordedNational Score (1-100), lower number is lower ikan709004/13/2023State Score (1-10), lower number is lower bjld5633Data from: https://www.neighborhoodatlas.medicine.[facility].edu/. Last address used for [address] 3CommentsNoSex and Gender InformationValueDate RecordedSex Assigned at BirthNot on fileLegal Sex Yzlqgb4610/03/2012 8:01 AM ESTGender IdentityNot on fileSexual OrientationNot on file Last Filed Vital Signs Vital SignReadingTime TakenCommentsBlood Gweoxnrq262/7608/17/2025 4:10 PM EDT Qzsfp615708/17/2025 4:10 PM WALMorunjpttva89.6 ??C (97.8 ??F)07/11/2019 8:08 AM EDTRespiratory Vjad773311/29/2019 10:44 AM ESTOxygen Gemngbupei25%07/11/2019 8:08 AM EDTInhaled Oxygen Concentration--Izclpq34.8 kg (186 lb 15.2 oz)08/17/2025 4:10 PM UXZHhpome591.5 cm (5' 2 )08/17/2025 4:10 PM EDTBody Mass Index34.19 08/17/2025 4:10 PM EDT Plan of Treatment DateTypeDepartmentCare Team (Latest Contact Info)Jrrgwoqkpxy30/22/2026 2:00 PM EDTOffice Visit Cardiology [address] [place] [address] [place] [address] [place] [address] Return in about 8 months (around 04/17/2026).Health MaintenanceDue DateLast Done CommentsDiabetic Foot Exam1967Dilated Retinal Exam1967Annual PCP Team Chronic Disease Visit1975Anxiety Cseyagjjl98/10/1975Depression Gdcdaffzy27/10/1975DTaP,Tdap,Td Vaccine (1 - Tdap)1976Hepatitis A Vaccine (1 of 2 - Risk 2-dose series)1976CT Zxxaskmsezvm21/10/2002Cologuard (FIT-DNA)2002Fecal Occult Blood09/11/20022090Agxzhkbaglwvz14/10/2002Shingrix Vaccine (1 of 2)2007Medicare Annual Wellness Visit08/02/2008Hepatitis B Vaccine (1 of 3 - Risk 3-dose series)09/11/20171225Dtwwbolrsfr18 Colorectal Cancer Inkbsbtbp95/14/2019Pneumococcal Vaccine: 50+ (3 of 3 - PCV20 or PCV21)/01/2017, 07/16/2015Mammogram Ziufhowhm26/15/2023 10/16/2022, 10/16/2022, 04/06/2020, Additional history existsAdvance Directive Vuuhasruco19/01/2025Covid-19 Vaccine ( season), 06/19/2021, 05/28/2021Influenza Vaccine (#1)5112/19/2023, 09/12/2019, 10/14/2018, Additional history existsLDL Gibvlnzkzpe47, 11/14/2019Urine Albumin:Creatinine RatioHbA1C11/22/2025 05/22/2025, 06/20/2024, 08/04/2023, Additional history existsHepatitis C TlrgvgvfrPaykxsvfr28/24/2019, 04/22/2019, 03/17/2006Bone Density Screening Rvdhrglfx22/27/2023RSV XkfhgcoEcmsqmcow34/17/2024 Goals GoalPatient Goal TypeAssociated ProblemsRecent ProgressPatient-Stated?Author Blood Pressure < 130/80 Blood Nzcojpxd393/76(08/17/2025 4:10 PM EDT)Juan J Perez MD Procedures Procedure NamePriorityDate/TimeAssociated DiagnosisCommentsECG COMPLETERoutine 08/17/2025 4:08 PM EDT Aneurysm of ascending aorta without rupture Essential hypertension Hyperlipidemia, unspecified hyperlipidemia type Obesity, Class III, BMI >= 40 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) (HCC) Smoldering myeloma ECG MHEXBUQZ38/16/2025 4:08 PM EDTLVEF TRANSTHORACIC UZDRXjecpoe52/16/2025 3:22 PM EDT TBTNCtiupzh47/16/2025 3:22 PM EDT Nonrheumatic aortic valve stenosis Aneurysm of ascending aorta without rupture LIPID PANEL, MABLERCJcjmwum54/13/2020 10:13 AM EST Atypical chest pain Thoracic ascending aortic aneurysm (HCC) Abnormal stress test Coronary artery disease involving [place] coronary artery of [place] heart without angina pectoris *HEP C XAXfaajlu62/24/2019 1:12 PM EDT Cirrhosis of liver without ascites, unspecified hepatic cirrhosis type (HCC) from Last 3 Months or Most Recently Relevant to Health Maintenance Results * ECG COMPLETE (08/17/2025 4:08 PM EDT)ComponentValueRef RangeTest Method Analysis TimePerformed AtPathologist SignatureVentricular Dzvf75ZMZZQNGP AND VASCULAR INSTITUTEAtrial Peho45BECOAWFZ AND VASCULAR INSTITUTEP-R Elqhnvgs927 msHEART AND VASCULAR INSTITUTEQRS Nfsilzxu54gnTRLOO AND VASCULAR INSTITUTEQT Godhbmzd590mdQWSBI AND VASCULAR INSTITUTEQTC Calculation (Stivenzett)422msHEART AND VASCULAR INSTITUTECalculated P Nmit13xqnseogVNERB AND VASCULAR INSTITUTE Calculated R [place]-4degreesHEART AND VASCULAR INSTITUTECalculated T Axis36 degreesHEART AND VASCULAR INSTITUTESpecimen (Source)Anatomical Location / LateralityCollection Method / VolumeCollection TimeReceived Time08/17/2025 4:08 PM EDT Impressions [facility] - 08/19/2025 11:45 AM EDT NORMAL SINUS RHYTHM Confirmed by ARNULFO HENDERSON M.D. ([id number]) on 08/19/2025 11:45:15 AM Narrative [facility] - 08/19/2025 11:45 AM EDT NAME : MOJGAN SNIDER PID : [id number] : 1955 Gender : Female Race : ORD : [id number] Procedure Date : Aug 17 2025 16:08:55 [...] by : , Authorizing ProviderResult TypeResult StatusMark E Andrea JASSOEKGFinal Result Performing OrganizationAddressCity/State/ZIP CodePhone Number [facility] [address] [phone] * ECHO (08/17/2025 3:22 PM EDT)Specimen (Source)Anatomical Location / Laterality Collection Method / VolumeCollection TimeReceived Time08/17/2025 3:22 PM EDT [facility] - 08/17/2025 5:30 PM EDT CONCLUSIONS: - Exam indication: Re-evaluation of known ascending aortic dilatation with the change in clinical status - The left ventricle is normal in size. Left ventricular systolic function is normal. EF = 55 ?? 5% (2D biplane) Grade I left ventricular diastolic dysfunction. - The right ventricle is normal in size. Right ventricular systolic function is normal. - The visualized aorta is dilated with a maximal dimension of 4.3 cm. - Estimated right ventricular systolic pressure is 26 mmHg consistent with normal pulmonary artery pressures. Estimated right atrial pressure is 8 mmHg based on IVC assessment. - Exam was compared with the prior echocardiographic exam performed on 04/13/2023. Overall, no significant change. * * * Final * * * [facility] [place] - 08/17/2025 5:30 PM EDT Echocardiography Report: Transthoracic Echo [facility] Date of service: 08/17/2025 3:22:40 PM ICE MACHINE OPERATOR Ordering physician: JUAN J MENDEZ Exam indication: Re-evaluation of known ascending aortic dilatation with the change in clinical status Technologist: Humberto Armendariz Interpreting physician: Mariam Raygoza MD PATIENT: Name: MRS. MOJGAN SNIDER : 1955 Age: 69 years Gender: F History of hypertension, dyslipidemia and diabetes mellitus. Primary rhythm: sinus. Height: 157.50 cm BSA: 1.87 m?? Weight: 80.30 kg ??BMI: 32.4 kg/m?? Heart rate ? 80 bpm Blood pressure 128/86 mmHg Color Doppler was utilized to interrogate the cardiac valves assessed and spectral Doppler was utilized to determine the flow velocities and pressure gradients reported in this exam. MEASUREMENTS: ?Value ?Indexed ?Normal Max aortic dimension 4.3 cm Ao < 3.8 Left atrial volume 28 ml (Villalobos's) 15 ml/m Ezekiel <= 34 LV stroke volume ?41 ml (2D biplane) LV end diastolic volume 76 ml (2D biplane) 40.4 ml/m 29<=EDVi<62 LV end systolic volume ??34 ml (2D biplane) 18.3 ml/m?? Ejection Fraction 55 % (2D biplane) EF > 54 FINDINGS: LEFT VENTRICLE The left ventricle is normal in size. Left ventricular systolic function is normal. Grade I left ventricular diastolic dysfunction. Mitral annular lateral E/e': 7.9. Mitral annular septal E/e': 10.1. Wall Motion: All scored segments are normal. RIGHT VENTRICLE The right ventricle is normal in size. Right ventricular systolic function is normal. RV systolic tissue Doppler velocity is 10.8 cm/s. Tricuspid annular displacement is 1.6 cm. Estimated right ventricular systolic pressure is 26 mmHg consistent with normal pulmonary artery pressures. Estimated right atrial pressure is 8 mmHg based on IVC assessment. LEFT ATRIUM The left atrial cavity is normal in size. RIGHT ATRIUM The right atrial cavity is normal in size (RA area = 14.0 cm??). Inferior Vena Cava: The inferior vena cava appears dilated measuring 2.12 cm. The vessel decreases greater than 50 percent with inspiration. MITRAL VALVE There is trace mitral valve regurgitation. There is mild thickening. The pressure half time is 59 msec. The peak mitral E/A ratio is 0.65. The average mitral E/e' ratio is 9.0. The mitral flow deceleration time is 203 msec. TRICUSPID VALVE There is mild (1+) tricuspid valve regurgitation. There is no thickening. AORTIC VALVE There is mild (1+) aortic valve regurgitation. Tricuspid aortic valve. There is mild thickening. The peak gradient is 11 mmHg (peak velocity = 167.0 cm/s). PULMONIC VALVE There is trace pulmonic valve regurgitation. There is no thickening. AORTA The visualized aorta is dilated. Measurements - Aortic valve annulus 1.8 cm. Sinus: 3.3 cm. Sinotubular junction 2.4 cm. Mid ascending aorta 4.3 cm. Distal ascending aorta 4.3 cm. Mid arch 3.6 cm. PULMONARY ARTERIES The pulmonary arteries are unseen or not interrogated. INTERATRIAL SEPTUM The interatrial septum is unseen or not interrogated. INTERVENTRICULAR SEPTUM There is no flow through the interventricular septum as detected by Doppler. PERICARDIUM There is no pericardial effusion. Authorizing ProviderResult TypeResult StatusMark E Andrea JASSOECHOFinal Result Performing OrganizationAddressCity/State/ZIP CodePhone Number [facility] [place] [address] [place] [address] * LVEF TRANSTHORACIC ECHO (08/17/2025 3:22 PM EDT)ComponentValueRef RangeTest MethodAnalysis TimePerformed AtPathologist SignatureLV Ejection Hbkeqsri87% HEART AND VASCULAR INSTITUTEComment: (2D biplane) EF > 54 An LV Ejection Fraction of > 50% is normal Specimen (Source)Anatomical Location / LateralityCollection Method / Volume Collection TimeReceived Time08/17/2025 3:22 PM EDT Narrative Authorizing ProviderResult TypeResult StatusMark E Andrea MDLVEF RESULTSFinal ResultPerforming OrganizationAddressCity/State/ZIP CodePhone Number [facility] [place] [address] [place] [address] * LIPID PANEL BASIC (11/14/2019 10:13 AM EST)ComponentValueRef RangeTest Method Analysis TimePerformed AtPathologist SignatureCholesterol, Inmxy046<200 mg/dL 11/14/2019 11:05 AM [facility] KwjyroduwdAgzmpkjwtqll086<150 mg/dL 11/14/2019 11:05 [facility] LaboratoryHDL Aunlqxmkdsm88>39 mg/dL 11/14/2019 11:05 [facility] LaboratoryLDL Cholesterol, Ysonzeczqp69 <100 mg/dL11/14/2019 11:05 AM [facility] LaboratoryComment: <100 mg/dL, Optimal 100-129 mg/dL, Near optimal/above optimal 130-159 mg/dL, Borderline high 160-189 mg/dL, High >189 mg/dL, Very high Secondary prevention optimal LDL Cholesterol levels are recommended to be < 70 mg/dL Non HDL Xlfxqausnsl34<130 mg/dL11/14/2019 11:05 AM [facility] Comment: <130 mg/dL, Optimal 130-159 mg/dL, Near optimal/above optimal 160-189 mg/dL, Borderline high 190-219 mg/dL, High >219 mg/dL, Very high Secondary prevention optimal non HDL Cholesterol levels are recommended to be < 100 mg/dL Fasting Honr85ecl77/13/2020 10:15 AM [facility] LaboratoryVLDL Cholesterol 22<30 mg/dL11/14/2019 11:05 AM [facility] LaboratoryTC:HDL Ratio2.28<5.10 11/14/2019 11:05 AM [facility] LaboratoryLDL:HDL Ratio0.84<2.54011/14/2019 11:05 AM [facility] LaboratoryComment: Reference: 1. National Cholesterol Education Program ATP III Guideline At-A-Glance Quick Desk Reference: National Heart, Lung, and Blood [place]. National Institutes of Health. 2001: NIH Publication No. 01-3305. 2. An International Atherosclerosis Society position paper: global recommendations for the management of dyslipidemia: executive summary, Atherosclerosis. 2014: 232(2):410-413. Specimen (Source)Anatomical Location / LateralityCollection Method / Volume Collection TimeReceived TimeBlood specimen (specimen)BLOOD SPECIMEN / Unknown 11/14/2019 10:13 AM EST11/14/2019 10:15 AM EST Narrative Authorizing ProviderResult TypeResult StatusJuan J Mendez MDLABORATORYFinal ResultPerforming OrganizationAddressCity/State/ZIP CodePhone Number [facility] [address] [place] [address], [facility] * HEP REMOTE PANEL BL (05/25/2019 1:12 PM EDT)ComponentValueRef RangeTest Method Analysis TimePerformed AtPathologist SignatureHep B Core Ab, TotalNegative Tgexupvr01/25/2019 1:25 PM EDTCKettering [facility] LaboratoriesHep C Antibody IA UrhbtqxdPzgaiadk75/25/2019 1:27 PM EDTCKettering Health [facility] LaboratoriesHBsAg WwfdhyvqRxilhsxs46/25/2019 1:25 PM EDTCKettering Health [facility] LaboratoriesHep B Surface Ab, RmdzBgjjbirkRuotfumx94/25/2019 1:26 PM EDTCKettering Health Washington Township LaboratoriesComment:NEGATIVESpecimen (Source)Anatomical Location / Laterality Collection Method / VolumeCollection TimeReceived TimeBlood specimen (specimen)BLOOD SPECIMEN / Hlmcjkr4605/25/2019 1:12 PM EDT05/25/2019 1:14 PM EDT Narrative Authorizing ProviderResult TypeResult StatusJepiter Yanez APRN.CNPLABORATORY Final ResultPerforming OrganizationAddressCity/State/ZIP CodePhone Number [facility] [address] [place] [address] [facility] [address] [place] [address] from Last 3 Months or Most Recently Relevant to Health Maintenance Insurance * Guarantor: Mojgan Snider TypeRelation to PatientDate of BirthPhone Billing AckwcjeTpfkvqgxfdFoxb1955 [address] [place] [address] Care Teams Team MemberRelationshipSpecialtyStart DateEnd Date Vitaliy Thomson MD [address] [place] [address] PCP - [facility] Medicine01/22/15 Daniella Lima NP [address] [place] [address] [facility]04/18/19
--- OUTSIDE RECORDS SUMMARY | 2025-08-27 18:09 | XMS_ITS | Encounter Summary ---
Author Organization [facility] Address [address] [place] [address] Care Team Providers Care Foreign Policy Officer Name Role Phone Vitaliy Thomson MD Unavailable [phone] Sima Paul RN Unavailable [phone] Power Swain DO Primary Care Provider [phone] Encounter Details DateTypeDepartmentCare Team (Latest Contact Info)Zaafzojrzca67/22/2025bstract [facility] [address] [address], [place] [address] [place] [address] Power Swain DO [address] [facility] [place] [address] [place] [address] Social History Tobacco UseTypesPacks/DayYears UsedDateSmoking Tobacco: FormerCigarettes [...] on one occasion?Never06/15/2025PHQ-2AnswerDate Recorded Patient Health Questionnaire-2 Ntjuf429CommentsNoSex and Gender InformationValueDate RecordedSex Assigned at BirthNot on fileLegal SexFemale 01/14/2023 6:38 PM EDTGender IdentityNot on fileSexual OrientationNot on file OccupationIndustryJob Start DateJob End DateRetiredNot on fileNot on fileNot on filedocumented as of this encounter Plan of Treatment DateTypeDepartmentCare Team (Latest Contact Info)Mrlbncrfevc47/10/2025 10:00 AM ESTOffice Visit [facility] [address], [facility] [address] [place] [address] Power Swain DO [address] [facility] [address] [place] [address] documented as of this encounter Visit Diagnoses Not on filedocumented in this encounter Additional Health Concerns AssessmentNoted TimePHQ-9 Depression Total Score: 9:00 AM EST documented as of this encounter Care Teams Team MemberRelationshipSpecialtyStart DateEnd Date Vitaliy Thomson MD [address] [place] [address] PCP - [facility]03/26/23 Power Swain DO [address] [facility] [address] [place] [address] PCP - GeneralFamily Medicine04/25/25 Sima Paul, LES [address] [place] [address] Registered NurseFamily Lszgurox69/23/23documented as of this encounter
--- OUTSIDE RECORDS SUMMARY | 2025-08-27 18:09 | XMS_ITS | Encounter Summary ---
Author Organization [facility] Address [address] [place] [address] Care Team Providers Care Business Applications Specialist Name Role Phone Vitaliy Thomson MD Primary Care Provider [phone] Daniella Lima RADAR SYSTEMS ENGINEER Unavailable [phone] Source Comments In the event this information is protected by the Federal Confidentiality of Alcohol and Drug AbusePatient Records regulations: The Federal rules restrict any use of the information to criminally investigate or prosecute any alcohol or drug abuse patient.[facility] Encounter Details DateTypeDepartmentCare Team (Latest Contact Info)Zioveucuwfl95/16/2025Travel Social History Tobacco UseTypesPacks/DayYears UsedDateSmoking Tobacco: ThqxcsPwloebgzvt172 07/25/1986 - 07/25/2009Smokeless Tobacco: NeverAlcohol UseStandard Drinks/Week CommentsNo0 (1 standard drink = 0.6 oz pure alcohol)PHQ-2AnswerDate RecordedPHQ2 Vystm651Area Deprivation IndexAnswerDate RecordedNational Score (1-100), lower number is lower xscj997604/13/2023State Score (1-10), lower number is lower bzdm2543Data from: https://www.neighborhoodatlas.[facility]/. Last address used for gjtkgr[address]coh[address]3CommentsNoSex and Gender InformationValueDate RecordedSex Assigned at BirthNot on fileLegal Sex Vqofmk0710/03/2012 8:01 AM ESTGender IdentityNot on fileSexual OrientationNot on filedocumented as of this encounter Functional Status * Are you deaf or do you have serious difficulty hearing?AnswerDate of ZkcnoybkffSwehjlZx13/26/2019 3:12 PM Edilberto Chester RN * Are you blind or do you have serious difficulty seeing, even when wearing glasses?AnswerDate of PbnjocfalzUtsmrxYz90/26/2019 3:12 PM Edilberto Chester RN * Do you have serious difficulty walking or climbing stairs?AnswerDate of LoygopmjyiHndoscPy58/26/2019 3:12 PM Edilberto Chester RN * Do you have difficulty dressing or bathing?AnswerDate of AssessmentAuthorNo 04/27/2019 3:12 PM Edilberto Chester RN * Because of a physical, mental, or emotional condition, do you have difficulty doing errands alone such as visiting a doctor's office or shopping?AnswerDate of AapvtupzsrQuhrksBd38/26/2019 3:12 PM Edilberto Chester RN documented as of this encounter Mental Status * Because of a physical, mental, or emotional condition, do you have serious difficulty concentrating, remembering, or making decisions?AnswerEntry Date TfunlpEp32/26/2019 3:12 PM Edilberto Chester RN documented in this encounter Plan of Treatment DateTypeDepartmentCare Team (Latest Contact Info)Uuacxrnydbj74/22/2026 2:00 PM EDTOffice Visit Cardiology [address] [place] [address] [place] [address] [place], [place] [id number] Return in about 8 months (around 04/17/2026).documented as of this encounter Goals GoalPatient Goal TypeAssociated ProblemsRecent ProgressPatient-Stated?Author Blood Pressure < 130/80 Blood Nwqfggfh130/76(08/17/2025 4:10 PM EDT)Justus Perez, MDdocumented as of this encounter Visit Diagnoses Not on filedocumented in this encounter Care Teams Team MemberRelationshipSpecialtyStart DateEnd Date Vitaliy Thomson MD [address] [place] [address] [facility] - [facility]01/22/15 Daniella Lima NP [address] [place] [address] ReferringFavibra [facility] Medicine04/18/19documented as of this encounter
--- OUTSIDE RECORDS SUMMARY | 2025-08-27 18:09 | XMS_ITS | Clinical Summary ---
Author Organization [facility] Address [address] [place] [address] Care Team Providers Care Bar Catcher Name Role Phone Yinka Thomson MD Unavailable [phone] Sima Paul RN Unavailable [phone] Power Swain DO Primary Care Provider [phone] Allergies Active AllergyReactionsCriticalityNoted DateCommentsAmoxicillinSwelling,RashLow 03/17/20062825SsedqkcmtlVzvpebr33/20/2023 Other Reaction(s): Unknown DiclofenacUnknown,Hives05/25/2019Diclofenac LyvnurRuaqu15/24/2019Doxycycline Unknown,Otqekfhs76/16/3686IdqjbnzijcqgOeewk02/30/2013Erythromycin BaseHives 12/17/2023LatexUnknown,Hives,LapxAgsadv53/12/2019MoxifloxacinHives,Rash,Unknown Low05/25/20196530GkmvuOivuhpcpc80/20/2022 Other Reaction(s): dizziness SdsglxowoePvyjm47/09/2024 Other Reaction(s): Hives, Unknown Reaction Other Reaction(s): Unknown Reaction TetracyclineUnknown,Hives,QixzBtgmuh85/12/2019Wound Dressing AdhesiveUnknown 05/15/2016 Medications MedicationSigDispense QuantityRefillsLast FilledStart DateEnd DateStatus acyclovir (Zovirax) 400 MG tablet Take 400 mg by mouth in the morning and 400 mg before bedtime.Active cholecalciferol (Vitamin D-3) 125 MCG (5000 UT) capsule TAKE 1 CAPSULE BY MOUTH EVERY DAY FOR 90 DAYS02/27/2023ctive Cyanocobalamin (Vitamin B-12) 1000 MCG sublingual tablet DISSOLVE 1 TABLET UNDER THE TONGUE ONCE A DAY03/03/2023ctive gabapentin (Neurontin) 400 MG capsule 2 (two) times a day09/04/2022ctive oxyCODONE (Roxicodone) 10 MG immediate release tablet TAKE 1 TABLET BY MOUTH FOUR TIMES A DAY NEEDEDActive potassium chloride ER (Micro-K) 10 MEQ ER capsule Take 10 mEq by mouth in the morning.Active ondansetron ODT (Zofran-ODT) 8 MG disintegrating tablet Take 8 mg by mouth every 8 (eight) hours if needed for nausea or vomiting. 05/10/2023ctive melatonin tablet Take 2 mg by mouth at bedtimeActive EPINEPHrine (Epipen) 0.3 MG/0.3ML injection syringe Indications:History of allergic drug reactionInject 0.3 mL (0.3 mg) as directed 1 (one) time for 1 dose use as directed for allergic reaction and then call 911 0.3 mL ctive naloxone (Narcan) 4 mg/0.1 mL nasal spray Administer 4 mg into affected nostril(s)02/01/2024ctive sulfamethoxazole-trimethoprim (Bactrim DS) 800-160 MG per tablet TAKE 1 TABLET BY MOUTH EVERY THURSDAY, THURSDAY AND DLAPII4201/11/2024ctive Ownylsl-Zpwlbbkezro-Lskbuziris (Breztri Aerosphere) 160-9-4.8 MCG/ACT aerosol Inhale 2 puffs in the morning and 2 puffs before bedtime.Active Teclistamab-cqyv 30 MG/3ML solution 03/21/2024ctive glucose blood (FREESTYLE LITE) test strip Indications:Type 2 diabetes mellitus with other specified complication, unspecified whether assistant terminal manager insulin use (HCC)Use as instructed 100 each ctive FreeStyle lancets USE 1 LANCET EVERY DAY *E11.9*08/29/2024ctive cetirizine (ZyrTEC) 10 MG tablet Indications:Seasonal allergic rhinitis due to pollenTake 1 tablet (10 mg) by mouth at bedtime 90 tablet 501/15/2026Active spironolactone (Aldactone) 50 MG tablet Indications:Chronic obstructive pulmonary disease, unspecified COPD type (HCC) Take 1 tablet (50 mg) by mouth Daily 90 tablet 6Active furosemide (Lasix) 20 MG tablet Indications:Essential hypertensionTake 1 tablet (20 mg) by mouth Daily 90 tablet 6Active hydrocortisone (Anusol-HC) 2.5 % rectal cream APPLY RECTALLY 2 TO 4 TIMES PER DAY NEEDED FOR NONXCUBAGAV38/15/2025Active magnesium oxide (Mag-Ox) 400 (240 Mg) MG tablet Take 400 mg by mouth Daily5Active Semaglutide,0.25 or 0.5MG/DOS, (Ozempic, 0.25 or 0.5 MG/DOSE,) 2 MG/3ML solution pen-injector Indications:Type 2 diabetes mellitus with other specified complication, without long-term current use of insulin (HCC),Class 1 obesity due to excess calories with serious comorbidity and body mass index (BMI) of 33.0 to 33.9 in adult Inject 0.5 mg under the skin 1 (one) time per week 9 mL 5Active metFORMIN XR (Glucophage-XR) 500 MG 24 hr tablet Indications:Diabetes mellitus without complication (HCC)Take 1 tablet (500 mg) by mouth Daily 90 tablet 5Active carvedilol (Coreg) 12.5 MG tablet Indications:Hypertension, unspecified typeTake 1 tablet (12.5 mg) by mouth in the morning and 1 tablet (12.5 mg) in the evening. Take with meals. 180 tablet 5Active fosfomycin (Monurol) 3 g packet MIX 1 PACKET INTO LIQUID AND TAKE BY MOUTH ONCE EVERY 5 DAYS5Active pantoprazole (ProtoNix) 40 MG EC tablet Take 40 mg by mouth in the morning and 40 mg before bedtime.5Active Respiratory Therapy Supplies (Nebulizer/Tubing/Mouthpiece) kit Indications:Chronic obstructive pulmonary disease, unspecified COPD type (HCC)1 kit See administration instructions 1 kit 11085Active atorvastatin (Lipitor) 40 MG tablet Indications:HyperchylomicronemiaTake 1 tablet (40 mg) by mouth Daily 90 tablet ctive fluticasone (Flonase) 50 MCG/ACT nasal spray Indications:Seasonal allergic rhinitis due to pollenADMINISTER 1 SPRAY INTO EACH NOSTRIL 1 TIME EACH DAY AT THE SAME TIME 16 mL 5Active cefdinir (Omnicef) 300 MG capsule TAKE 1 CAPSULE BY MOUTH TWICE A DAY FOR 1 WEEK THEN 1 CAPSULE ONCE A DAY FOR 2 HXLPVO775Active morphine CR (MS Contin) 15 MG 12 hr tablet Take 15 mg by mouth in the morning and 15 mg before bedtime.5Active albuterol (2.5 MG/3ML) 0.083% nebulizer solution Indications:Chronic obstructive pulmonary disease, unspecified COPD type (HCC) Take 3 mL (2.5 mg) by nebulization every 6 (six) hours if needed for wheezing 75 mL ctive simvastatin (Zocor) 20 MG tablet Indications:Hyperlipidemia, group DTake 1 tablet (20 mg) by mouth at bedtime 90 tablet ctive omeprazole (PriLOSEC) [address] capsule Indications:Gastroesophageal reflux disease, unspecified whether esophagitis presentTake 1 capsule (40 mg) by mouth in the morning. Take before meals. Do not crush or chew. 90 capsule ctive prochlorperazine (Compazine) 10 MG tablet Take 10 mg by mouth every 8 (eight) hours if apxlpi725Active predniSONE (Deltasone) 20 MG tablet Indications:COPD with acute exacerbation (HCC)Take two tablets (40 mg) daily for five days, then take one tablet (20 mg) daily for five days. Take with food. 15 tablet 5Active guaiFENesin (Mucinex) 600 MG 12 hr tablet Indications:COPD with acute exacerbation (HCC)Take 1 tablet (600 mg) by mouth in the morning and 1 tablet (600 mg) before bedtime. Do all this for 14 days. Do not crush, chew, or split. 28 tablet 5Active DULoxetine (Cymbalta) [address] capsule Indications:FibromyalgiaTake 1 capsule (60 mg) by mouth Daily Do not crush or chew. 90 capsule 306/409141/Discontinued(Therapy completed) albuterol (2.5 MG/3ML) 0.083% nebulizer solution Indications:Chronic obstructive pulmonary disease, unspecified COPD type (HCC) Take 3 mL (2.5 mg) by nebulization every 6 (six) hours if needed for wheezing 75 mL Discontinued(Reorder) lansoprazole (Prevacid) [address] capsule Indications:Gastroesophageal reflux disease without esophagitisTake 1 capsule (30 mg) by mouth Daily Do not crush or chew. 30 capsule Discontinued(Therapy completed) Active Problems ProblemNoted DateDiagnosed MuwwTndmch23/05/2025Gross qcdybfuew27/05/2025History of kidney axpfub5007/07/2025bnormal liver qfyizzzkyr79/11/2025Hepatocellular eychunrae19/11/2025Liver phsotc4301/10/2025leeding iuczaxhkzrq33/24/2024 Owgzwkyueev41/24/2845Eknnajpghivtpuxm88/24/2024bnormal CXR (chest x-ray) 08/10/2024Spontaneous bacterial rulvkwygamv23/09/2024aroxysmal atrial cwzynobabdwh89/19/2024History of tobacco abuse04/25/2024hronic obstructive pulmonary gxngzuf8705/20/2023 Assessment & Plan (03/01/2025 2:47 PM EDT): Lungs around baseline on PE today, continue current tx regimen, refill albuterol nebulizer solution Orders: albuterol (2.5 MG/3ML) 0.083% nebulizer solution; Take 3 mL (2.5 mg) by nebulization every 6 (six) hours if needed for wheezing Lohtfphaci79/19/8801MQ7 (diabetes mellitus, type 2)05/20/2023Essential fousfxdvwblh20/19/1215Antvteazwmac27/19/2023Hyperlipidemia, group D005/20/2023 Clndgaxkagainbnmgrwxf69/19/2023Immunodeficiency pghcjrhu78/06/2021Multiple myeloma not having achieved wxraitpwd67/08/2020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)07/11/2019Primary localized osteoarthrosis of ankle and foot06/01/2019Thoracic aortic aneurysm without wvfycqg2504/15/2019 Hemorrhoids, ykclqssixlo87/17/2019GERD (gastroesophageal reflux disease) 04/07/2018 Assessment & Plan (03/29/2025 4:16 PM EDT): - Heartburn not well controlled with current medication (Protonix). - Prescribe lansoprazole 30 mg once daily since it worked better for her in the past, starting the day after the last dose of pantoprazole. Orders: lansoprazole (Prevacid) [address] capsule; Take 1 capsule (30 mg) by mouth Daily Do not crush or chew. Pulxurtmgije16/11/2018Morbid tcjmccu8211/11/2017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Vitamin D oxphanjmrj01/14/2006 Resolved Problems ProblemNoted DateDiagnosed DateResolved OgvvDpovetdiqlwrwm75/11/202507/ Acute metabolic vvmnyycxudldnd29/19/202407/1212Bjlxingrwt99 Rhinovirus wqlwtqldy20Septic shockute alteration in mental tupqdc43History of COVID-19004/25/2024 05/15/2025Maxillary sinusitis, syxjbfe48Renal calculus /04/2023Malignant immunoproliferative icqqqxz81MI 30.0-30.9,adultThoracic ascending aortic qjijgidp29/18/2019 07/08/2023Smoldering kzqlhlc92H/O abdominal hysterectomy isorder of nervous system due to type 2 diabetes mellitus 3Allergic xruucugo753Polyneuropathy therosclerosis of aortaneurysm of infrarenal abdominal aortahronic pain kwkuhyof53/30/2017 07/08/2023rimary ipruhwbq65Leukopenia Cirrhosis of liver9903Drhiajlkrjbxinzo00/30/201409/06/2023Sleep apnea Encounters DateTypeDepartmentCare UjzcHcdtfegddde43/23/2025Telephone [facility] [address] [place] [address] Power Swain DO 08/23/2025Results Follow-Up [facility] [address] [place] [address] Power Swian DO POCT rapid strep A manually resulted, PNEUMONIA (HTRX)08/23/2025bstract [facility] [address] [place] [address] Power Swain DO 08/22/2025 2:20 PM EDTFollow-Up [facility] [address] [place] [address] Power Swain DO COPD with acute exacerbation (HCC) (Primary Dx); Pharyngitis, unspecified gcoyjmxx63/20/2025Telephone [facility] [address] [place] [address] Polina Ferrari MA 08/18/2025bstract [facility] [address] [place] [address] Power Swain DO 08/16/2025External Result Encounter [facility] Unsolicited Fabiola Marinelli MD 08/16/2025External Result Encounter [facility] External Department Unsolicited Fabiola Marinelli MD 08/16/2025External Result Encounter [facility] External Department Unsolicited Fabiola Marinelli MD 08/14/2025bstract [facility] [address] [place] [address] Power Swain DO 08/11/2025bstract [facility] [address] [place] [address] Power Swain DO 08/11/2025Refill [facility] [address] [place] [address] Polina Ferrari MA Hyperlipidemia, group D; Gastroesophageal reflux disease, unspecified whether esophagitis present 08/09/2025bstract [facility] [address] [place] [address] Power Swain DO 08/09/2025External Result Encounter [facility] External Department Unsolicited Fabiola Marinelli MD 08/09/2025External Result Encounter [facility] External Department Unsolicited Fabiola Marinelli MD 08/04/2025Patient Outreach [facility] [place] [id number] [facility] [place] [place] [address] Sima Paul RN 08/04/2025Refill [facility] [address] [place] [phone] Power Swain DO Chronic obstructive pulmonary disease, unspecified COPD type (HCC)08/04/2025 Abstract [facility] [address] [place] [address] Power Swain DO 08/02/2025External Result Encounter [facility] External Department Unsolicited Fabiola Marinelli MD 08/02/2025External Result Encounter [facility] External Department Unsolicited Fabiola Marinelli MD 08/02/2025External Result Encounter [facility] External Department Unsolicited Fabiola Marinelli MD 08/02/2025External Result Encounter [facility] External Department Unsolicited Fabiola Marinelli MD 08/02/2025External Result Encounter [facility] External Department Unsolicited Fabiola Marinelli MD 08/02/2025bstract [facility] [address], [address] [place] [address] Power Swain, 07/21/2025bstract [facility] [address] [place] [address] Power Swain, 07/21/2025Patient Outreach [facility] [address] [place] [address] Sima Paul RN 07/20/2025bstract [facility] [address] [place] [address] Power Swain, 07/19/2025External Result Encounter [facility] External Department Unsolicited Fabiola Marinelli MD 07/19/2025External Result Encounter [facility] External Department Unsolicited Fabiola Marinelli MD 07/18/2025Refill [facility] [address] [place] [address] Power Swain, DO Seasonal allergic rhinitis due to acopnr1307/12/2025External Result Encounter [facility] External Department Unsolicited Fabiola Marinelli MD 07/12/2025External Result Encounter [facility] External Department Unsolicited Fabiola Marinelli MD 07/12/2025External Result Encounter [facility] External Department Unsolicited Fabiola Marinelli MD 07/07/2025Patient Outreach [facility] [address] [place] [address] Sima Paul RN 07/07/2025Telephone [facility] [address] [place] [address] Polina Ferrari [facility] Tygmwl1607/05/2025External Result Encounter [facility] External Department Unsolicited Fabiola Marinelli MD 07/05/2025External Result Encounter [facility] External Department Unsolicited Fabiola Marinelli MD 06/20/2025External Result Encounter [facility] External Department Unsolicited Fabiola Marinelli MD 06/20/2025External Result Encounter [facility] External Department Unsolicited Fabiola Marinelli MD 06/20/2025External Result Encounter [facility] External Department Unsolicited Fabiola Marinelli MD 06/19/2025bstract [facility] [address], [facility] [place] [address] Power Swain, 06/16/2025bstract [facility] [address] [place] [address] [place] [address] Power Swain, 06/15/2025 8:40 AM EDTConsult [facility] [address] [place] [address] Power Swain, Preoperative uxfwoxvme47/14/2025bstract [facility] [address] [place] [address] Power Swain, 06/15/2025amboo flowsheet [facility] [address] [place] [address] Power Swain, 06/14/2025External Result Encounter [facility] External Department Unsolicited Fabiola Marinelli MD 06/14/2025External Result Encounter [facility] External Department Unsolicited Fabiola Marinelli MD 06/14/2025External Result Encounter [facility] External Department Unsolicited Fabiola Marinelli MD 06/12/2025bstract [facility] [address] [place] [address] Power Swain DO 06/12/2025Refill [facility] [address] [place] [address] Fabiola Palumbo, PAMELLA Fcafucxmzmvslpbimshz77/07/2025bstract [facility] [address] [place] [address] Power Swain DO 06/07/2025External Result Encounter [facility] External Department Unsolicited Fabiola Marinelli MD 06/07/2025[facility] [address] [place] [address] Sima Paul RN 06/07/2025External Result Encounter [facility] External Department Unsolicited Fabiola Marinelli MD 06/07/2025Refill [facility] [address] [place] [address] Fabiola Palumbo, [employer] Diabetes mellitus without complication (HCC); Hypertension, unspecified type06/06/2025Orders Only [facility] [address] [place] [address] Power Swain DO 05/30/2025External Result Encounter [facility] External Department Unsolicited Fabiola Marinelli MD 05/29/2025bstract [facility] [address] [facility] [address] [place] [address] Power Swain DO from Last 3 Months Immunizations ImmunizationAdministration DatesNext DueInfluenza, High Dose Seasonal, Preservative Free10/18/2024Influenza, injectable, quadrivalent, preservative free09/12/2019,10/14/2018Influenza, seasonal, vyrdhtnybf74/14/2015Influenza, seasonal, intradermal, preservative free10/05/2017Pneumococcal Conjugate PCV 13 07/16/2015Pneumococcal Conjugate PCV (Deferred: Patient Refused) Pneumococcal Polysaccharide AKKJ999712/06/2016RSV, recombinant, protein subunit RSVpreF, adjuvant reconstitu, 120mcg/0.5mL, PF (Arexvy)10/18/2024 Family History Medical HistoryRelationNameCommentsLung cancerBrotherross smithdied 62No Known ProblemsDaughterHeart diseaseFatherrobert smithHypertensionFatherrobert king 74Prostate cancerFatherrobert smithColon cancerMotherevelyn smithHeart diseaseMotherevelyn smithHypertensionMotherevelyn smithdied 85CancerSibling Breast cancerSisterelsiedied 49HypertensionSonRelationNameStatusCommentsBrother coral jlwawx2PvtxzlycQippmq7Jnvoesfxmzxl smithDeceasedMotherevelyn smithDeceased VunflDnchhrRhbicwtwCiggrhbSlfgxwuqqbkTbbxchkxi8NucVohzpn5 Social History Tobacco UseTypesPacks/DayYears UsedDateSmoking Tobacco: FormerCigarettes Smokeless Tobacco: Former Tobacco Cessation:Counseling Given: Not Answered Alcohol UseStandard Drinks/WeekCommentsNever0 (1 standard drink = 0.6 oz pure alcohol)cafffeine intake: 1-2 cups per dayAUDIT-CAnswerDate RecordedQ1: How often do you have a drink containing alcohol?Never06/15/2025Q2: How many drinks containing alcohol do you have on a typical day when you are drinking?Patient does not drink06/15/2025Q3: How often do you have six or more drinks on one occasion?Never06/15/2025PHQ-2AnswerDate RecordedPatient Health Questionnaire-2 Zdvba860CommentsNoSex and Gender InformationValueDate Recorded Sex Assigned at BirthNot on fileLegal NxvUcxbnt67/15/2023 6:38 PM EDTGender IdentityNot on fileSexual OrientationNot on fileOccupationIndustryJob Start Date Job End DateRetiredNot on fileNot on fileNot on file Last Filed Vital Signs Vital SignReadingTime TakenCommentsBlood Paalqddn489/6608/22/2025 2:32 PM EDT Kkzmy024808/22/2025 2:32 PM USNZoorrpuvstl56.5 ??C (97.7 ??F)08/22/2025 2:32 PM EDTRespiratory Cwov2429 2:32 PM EDTOxygen Ecbkbsostj49%08/22/2025 2:32 PM EDTInhaled Oxygen Concentration--Nsptuu85.5 kg (193 lb)08/22/2025 2:32 PM EDT Afetli192 cm (5' 3 )08/22/2025 2:32 PM EDTBody Mass Index34.191 2:32 PM EDT Plan of Treatment DateTypeDepartmentCare Team (Latest Contact Info)Wxhtrmfmyjq09/10/2025 10:00 AM ESTOffice Visit [facility] [address] [place] [address] [facility], [address] [place] [address] Health MaintenanceDue DateLast DoneCommentsCT Cqjpmxgexvzt1957FIT-DNA 1957FIT1957FOBT1957 1364Muybidztndsic1957Pneumococcal Vaccine: 65+ Years (3 of 3 - PCV20 or PCV21)/01/2017, 07/16/2015 Influenza Vaccine (#1)5112/19/2023, 09/12/2019, 10/14/2018, Additional history existsDiabetes: Urine Protein Yzdlfxqnq76, 11/30/2023, 03/04/2021, Additional history existsDiabetes: Hemoglobin A1C11/22/2025 05/22/2025, 12/20/2024, 06/20/2024, Additional history existsMedicare Annual Wellness (AWV)/, 11/30/2023, 12/01/2022, Additional history dikjswMcebuzhvi48/17/202710/, 10/16/2022, 04/06/2020, Additional history existsDiabetes: Retinopathy Yhakhkdaq12/03/2025, 07/01/2024, 05/06/2022, Additional history pmygqnBwpbqbrudfr03/14/202811/, 05/01/2015, 05/01/2015, Additional history existsColorectal Cancer Screening 09/15/2028 Procedures Procedure NamePriorityDate/TimeAssociated DiagnosisCommentsPOCT RAPID STREP A Zjhderh8908/22/2025 3:10 PM EDT COPD with acute exacerbation (HCC) PNEUMONIA (HTRX)Bgxfuqu2608/22/2025 3:00 PM EDT COPD with acute exacerbation (HCC) Pharyngitis, unspecified etiology DAHSWRYRFIWCB10/15/2025 10:32 AM EDT PMWLWZDMXNUP40/15/2025 8:14 AM EDT SCAN AND QGTAJID0608/16/2025 8:14 AM EDT IRON AND TOTAL IRON BINDING RRNZDZRXUMHR45/15/2025 8:14 AM EDT COMPREHENSIVE METABOLIC WETIGHKRR60/15/2025 8:14 AM EDT SCAN AND BECTEQQ9208/09/2025 8:25 AM EDT COMPREHENSIVE METABOLIC JPACJJrtuvmf51/08/2025 8:25 AM EDT WIRPXVORKA38/01/2025 10:00 AM EDT IMMUNOGLOBULINS A/E/G/M, QN (FR)STAT1 10:00 AM EDT VOOQHEBHYYURLVblbjdn80/01/2025 10:00 AM EDT SCAN AND VRSHspyobb71/01/2025 10:00 AM EDT VITAMIN B61Xgqewlh81/01/2025 10:00 AM EDT FOLATE, TAYYPJxujvol90/01/2025 10:00 AM EDT NYOKEGLWFjezzlj95/01/2025 10:00 AM EDT IRON AND TOTAL IRON BINDING KOUKTMLCDvjdrku29/01/2025 10:00 AM EDT COMPREHENSIVE METABOLIC WTCBNYmijimz95/01/2025 10:00 AM EDT SCAN AND ROJVPPK2507/19/2025 9:45 AM EDT COMPREHENSIVE METABOLIC NPJNEBSSA54/17/2025 9:45 AM EDT IMMUNOFIXATION,S[place]UM [place] [place]Wavcnmb1107/12/2025 8:06 AM EDT PROTEIN ELECTROPHORESIS, YOFPPDalywpu23/10/2025 8:06 AM EDT ALPHA FETOPROTEIN, TUMOR DUFAEGUxmyfnh27/10/2025 8:06 AM EDT DIFF AND EWUCSZU0607/12/2025 8:06 AM EDT COMPREHENSIVE METABOLIC OIKKHGBPG89/10/2025 8:06 AM EDT SCAN AND VDATGBD4907/05/2025 10:07 AM EDT COMPREHENSIVE METABOLIC GGODRDEQL52/03/2025 10:07 AM EDT IMMUNOGLOBULINS A/E/G/M, QN ([facility] [place])Hfibtng2506/20/2025 8:15 AM EDT DIFF AND CFUKhhxibq95/19/2025 8:15 AM EDT COMPREHENSIVE METABOLIC CENCEEOQV81/19/2025 8:15 AM EDT ALPHA FETOPROTEIN, TUMOR VCVLNQDsgqirc61/13/2025 10:50 AM EDT SCAN AND ESNWdgjsqe00/13/2025 10:50 AM EDT COMPREHENSIVE METABOLIC CZNEZJgpnmme42/13/2025 10:50 AM EDT IMMUNOFIXATION,SERUM ([facility] [place])Srjbjsb5906/07/2025 10:13 AM EDT PROTEIN ELECTROPHORESIS, YNOIWBgcbwgw31/06/2025 10:13 AM EDT FREE K+L LT CHAINS, QN, JRlelvht91/06/2025 10:13 AM EDT SCAN AND NTKYLXP1206/07/2025 10:13 AM EDT DIABETIC RETINOPATHY SCREENING - OU - BOTH HYPIGgmefzs33/05/2025 10:06 AM EDT SCAN AND WHJLAHZ5405/30/2025 9:15 AM EDT HEMOGLOBIN D3EDgfdqam76/21/2025 9:45 AM EDT Type 2 diabetes mellitus without complication, without long-term current use of insulin (HCC) MICROALBUMIN / CREATININE URINE DOPSGWywdksq24/25/2024 12:23 PM EDT Essential hypertension Type 2 diabetes mellitus with other specified complication, unspecified whether fpc insulin use (HCC) MM TOMOSYNTHESIS SCREENING BI08/18/2024 3:19 PM EDT JZHIOAOJPXKJpieuxo42/14/2018 12:00 PM EST from Last 3 Months or Most Recently Relevant to Health Maintenance Results * POCT rapid strep A manually resulted (08/22/2025 3:10 PM EDT)ComponentValueRef RangeTest MethodAnalysis TimePerformed AtPathologist SignatureRapid Strep A ScreenNegativeNegative, None DetectedSpecimen (Source)Anatomical Location / LateralityCollection Method / VolumeCollection TimeReceived AxldXemg43/21/2025 3:10 PM EDT Narrative Authorizing ProviderResult TypeResult StatusDaniel Brynn DOPOINT OF CARE TEST ENTER/EDIT ORDERABLESFinal Result * (ABNORMAL) PNEUMONIA (HTRX) (08/22/2025 3:00 PM EDT)ComponentValueRef Range Test MethodAnalysis TimePerformed AtPathologist SignatureSTREPTOCOCCUS PYOGENES (GROUP A STREP) (RESPIRATORY)019.961 - 24.689 ppm08/23/2025 6:49 AM EDTHealthTrackRx at LabPortSTREPTOCOCCUS PYOGENES (GROUP A STREP) (RESPIRATORY)Not Vbhfkdgr79.961 - 24.689 ppm08/23/2025 6:49 AM EDT [facility] at LabPortSTREPTOCOCCUS PNEUMONIAE (RESPIRATORY)019.961 - 24.689 ppm08/23/2025 6:49 AM EDTHealthTrackRx at LabPortSTREPTOCOCCUS PNEUMONIAE (RESPIRATORY)Not Loxxkxib28.961 - 24.689 ppm08/23/2025 6:49 AM EDT [facility] at LabPortSTREPTOCOCCUS AGALACTIAE (GROUP B STREP) (RESPIRATORY) 019.961 - 24.689 ppm08/23/2025 6:49 AM EDTHealthTrackRx at [facility] STREPTOCOCCUS AGALACTIAE (GROUP B STREP) (RESPIRATORY)Not Wypbaatb95.961 - 24.689 ppm08/23/2025 6:49 AM EDTHealthTrackRx at LabPortSTAPHYLOCOCCUS AUREUS (RESPIRATORY)019.961 - 24.689 ppm08/23/2025 6:49 AM EDTHealthTrackRx at LabPortSTAPHYLOCOCCUS AUREUS (RESPIRATORY)Not Nbbkcyvr43.961 - 24.689 ppm 08/23/2025 6:49 AM EDTHealthTrackRx at LabPortSERRATIA MARCESCENS (RESPIRATORY)019.961 - 24.689 ppm08/23/2025 6:49 AM EDTHealthTrackRx at LabPortSERRATIA MARCESCENS (RESPIRATORY)Not Fpxuzqrs04.961 - 24.689 ppm 08/23/2025 6:49 AM EDTHealthTrackRx at LabPortRESPIRATORY SYNCYTIAL VIRUS (RESPIRATORY)023.000 - 31.953 ppm08/23/2025 6:49 AM EDTHealthTrackRx at LabPortRESPIRATORY SYNCYTIAL VIRUS (RESPIRATORY)Not Yfsfkcjl43.000 - 31.953 ppm08/23/2025 6:49 AM EDTHealthTrackRx at LabPortPSEUDOMONAS AERUGINOSA (RESPIRATORY)31.113(A)19.961 - 24.689 ppm08/23/2025 6:49 AM EDTHealthTrackRx at LabPortPSEUDOMONAS AERUGINOSA (RESPIRATORY)Detected(A)19.961 - 24.689 ppm 08/23/2025 6:49 AM EDTHealthTrackRx at LabPortPROTEUS MIRABILIS, VULGARIS (RESPIRATORY)019.961 - 24.689 ppm08/23/2025 6:49 AM EDTHealthTrackRx at LabPortPROTEUS MIRABILIS, VULGARIS (RESPIRATORY)Not Lejgdnyu60.961 - 24.689 ppm08/23/2025 6:49 AM EDTHealthTrackRx at LabPortPARAINFLUENZA VIRUS (TYPES 1, 2, 3 ,4) (RESPIRATORY)023.000 - 31.487 ppm08/23/2025 6:49 AM EDTHealthTrackRx at LabPortPARAINFLUENZA VIRUS (TYPES 1, 2, 3 ,4) (RESPIRATORY)Not Detected 23.000 - 31.487 ppm08/23/2025 6:49 AM EDTHealthTrackRx at LabPortMYCOPLASMA PNEUMONIAE (RESPIRATORY)019.961 - 24.689 ppm08/23/2025 6:49 AM EDT [facility] at LabPortMYCOPLASMA PNEUMONIAE (RESPIRATORY)Not Iryqktbu54.961 - 24.689 ppm08/23/2025 6:49 AM EDTHealthTrackRx at LabPortMORAXELLA CATARRHALIS (RESPIRATORY)019.961 - 24.689 ppm08/23/2025 6:49 AM EDT [facility]OR[facility]LLA CATARRHALIS (RESPIRATORY)Not Ibmnseof78.961 - 24.689 ppm08/23/2025 6:49 AM EDTHealthTrackRx at LabPortLEGIONELLA PNEUMOPHILA (RESPIRATORY)019.961 - 24.689 ppm08/23/2025 6:49 AM EDT [facility] at LabPortLEGIONELLA PNEUMOPHILA (RESPIRATORY)Not Nfnztxjh62.961 - 24.689 ppm08/23/2025 6:49 AM EDTHealthTrackRx at [facility] HospitalKLEBSIELLA PNEUMONIAE, OXYTOCA (RESPIRATORY)019.961 - 24.689 ppm08/23/2025 6:49 AM EDT [facility] CenterKLEBSIELLA PNEUMONIAE, OXYTOCA (RESPIRATORY)Not Xjcfbnyx18.961 - 24.689 ppm08/23/2025 6:49 AM EDTHealthTrackRx at [facility] INFLUENZA VIRUS, A, B (RESPIRATORY)023.000 - 29.803 ppm08/23/2025 6:49 AM EDT [facility] HospitalINFLUENZA VIRUS, A, B (RESPIRATORY)Not Houlmnbm43.000 - 29.803 ppm08/23/2025 6:49 AM EDTHealthTrackRx at [facility] HospitalHUMAN METAPNEUMOVIRUS (RESPIRATORY)023.000 - 33.630 ppm08/23/2025 6:49 AM EDT [facility] METAPNEUMOVIRUS (RESPIRATORY)Not Xjefegwb48.000 - 33.630 ppm08/23/2025 6:49 AM EDTHealthTrackRx at [facility] HospitalHAEMOPHILUS INFLUENZAE (RESPIRATORY)019.961 - 24.689 ppm08/23/2025 6:49 AM EDT [facility] at LabPortHAEMOPHILUS INFLUENZAE (RESPIRATORY)Not Wktevgvk69.961 - 24.689 ppm08/23/2025 6:49 AM EDTHealthTrackRx at LabPortESCHERICHIA COLI (RESPIRATORY)019.961 - 24.689 ppm08/23/2025 6:49 AM EDTHealthTrackRx at LabPortESCHERICHIA COLI (RESPIRATORY)Not Vcnasabl11.961 - 24.689 ppm08/23/2025 6:49 AM EDTHealthTrackRx at LabPortENTEROVIRUS D68 (RESPIRATORY)023.000 - 32.268 ppm08/23/2025 6:49 AM EDTHealthTrackRx at LabPortENTEROVIRUS D68 (RESPIRATORY)Not Pbqlnbtw78.000 - 32.268 ppm08/23/2025 6:49 AM EDT [facility] at [facility]PortOTHER CORONAVIRUSES (229E, NL63, HKU1, OC43) (RESPIRATORY)023.000 - 30.477 ppm08/23/2025 6:49 AM EDTHealthTrackRx at LabPortOTHER CORONAVIRUSES (229E, NL63, HKU1, OC43) (RESPIRATORY)Not Detected 23.000 - 30.477 ppm08/23/2025 6:49 AM EDTHealthTrackRx at LabPortCHLAMYDIA PNEUMONIAE (RESPIRATORY)019.961 - 24.689 ppm08/23/2025 6:49 AM EDT [facility] at LabPortCHLAMYDIA PNEUMONIAE (RESPIRATORY)Not Idavtwtw29.961 - 24.689 ppm08/23/2025 6:49 AM EDTHealthTrackRx at LabPortBORDETELLA PERTUSSIS, PARAPERTUSSIS, BRONCHISEPTICA (RESPIRATORY)019.961 - 24.689 ppm08/23/2025 6:49 AM EDTHealthTrackRx at LabPortBORDETELLA PERTUSSIS, PARAPERTUSSIS, BRONCHISEPTICA (RESPIRATORY)Not Crgdpbnz85.961 - 24.689 ppm08/23/2025 6:49 AM EDTHealthTrackRx at LabPortACINETOBACTER BAUMANNII (RESPIRATORY)019.961 - 24.689 ppm08/23/2025 6:49 AM EDTHealthTrackRx at LabPortACINETOBACTER BAUMANNII (RESPIRATORY)Not Gvjcswqt05.961 - 24.689 ppm08/23/2025 6:49 AM EDT [facility] at LabPortHTRX COVID-19 THBYNJMBNAE849.000 - 31.947 ppm 08/23/2025 6:49 AM EDTHealthTrackRx at LabPortHTRX COVID-19 CORONAVIRUSNot Vghnodsg27.000 - 31.947 ppm08/23/2025 6:49 AM EDTHealth[facility]Rx at [facility] RHINOVIRUS/ENTEROVIRUS (RESPIRATORY)29.8(A)23.000 - 30.000 ppm08/23/2025 6:49 AM EDTHealthTrackRx at LabCommunity [facility] Health CenterRHINOVIRUS/ENTEROVIRUS (RESPIRATORY)Detected(A) 23.000 - 30.000 ppm08/23/2025 6:49 AM EDTHealthTrackRx at LabCommunity Mental Health CenterADENOVIRUS HADV-B (RESPIRATORY)023.000 - 31.833 ppm08/23/2025 6:49 AM EDTHealthTrackRx at LabCommunity [facility] Health CenterADENOVIRUS HADV-B (RESPIRATORY)Not Ipuxjbvb10.000 - 31.833 ppm 08/23/2025 6:49 AM EDTHealthTrackRx at LabCommunity Mental Health CenterENTEROBACTER CLOACAE COMPLEX, KLEBSIELLA (ENTEROBACTER) AEROGENES (PSIYRMJB543.961 - 24.689 ppm08/23/2025 6:49 AM EDTHealthTrackRx at LabPortENTEROBACTER CLOACAE COMPLEX, KLEBSIELLA (ENTEROBACTER) AEROGENES (RESPIRATNot Odvysfiq42.961 - 24.689 ppm08/23/2025 6:49 AM EDTHealthTrackRx at LabPortSpecimen (Source)Anatomical Location / LateralityCollection Method / VolumeCollection TimeReceived TimePulmonary 08/22/2025 3:00 PM EDT1 10:26 PM EDT Narrative Authorizing ProviderResult TypeResult StatusDaniel Brynn DOLAB BLOOD ORDERABLES Edited Result - FinalPerforming OrganizationAddressCity/State/ZIP CodePhone Number [facility] [address] [address] * (ABNORMAL) Magnesium (08/16/2025 10:32 AM EDT)ComponentValueRef RangeTest MethodAnalysis TimePerformed AtPathologist SignatureMAGNESIUM1.7(L)1.9 - 2.7 mg/dL08/16/2025 11:04 AM [facility] CtrSpecimen (Source) Anatomical Location / LateralityCollection Method / VolumeCollection Time Received TimeOtherTopography unknown / Kbaefqq7008/16/2025 10:32 AM EDT 08/16/2025 10:32 AM EDT Narrative Authorizing ProviderResult TypeResult StatusFabiola KIRKPATRICK BLOOD ORDERABLES Final ResultPerforming OrganizationAddressCity/State/ZIP CodePhone Number [facility] [address] [place] [address], [facility] [address] [place] [address] * (ABNORMAL) SCAN AND CBC (08/16/2025 8:14 AM EDT) Only the most recent of8 resultswithin the time period is included. ComponentValueRef RangeTest MethodAnalysis TimePerformed AtPathologist Signature WBC1.8(L)3.8 - 11.6 [CFU]/mL08/16/2025 8:40 AM [facility] Ctr UNCORRECTED WHITE BLOOD COUNT1.8(L)3.8 - 11.6 10*3/uL08/16/2025 8:40 AM EDT [facility] CtrRBC3.45(L)3.60 - 5.00 10*6/uL08/16/2025 8:40 AM [facility] CctVXISGHXIOZ59.2(L)11.8 - 15.4 g/dL08/16/2025 8:40 AM [facility] SuyIZPQYCEOGT15.6(L)34.0 - 46.4 % 08/16/2025 8:40 AM [facility] HddBKV00.480 - 100 fL08/16/2025 8:40 AM [facility] PprLPJ58.424.7 - 34.3 pg08/16/2025 8:40 AM [facility] KhxIFHK46.432.0 - 35.0 g/dL08/16/2025 8:40 AM [facility] CtrRED CELL DISTRIBUTION WIDTH, RDW15.311.9 - 15.3 %08/16/2025 8:40 AM [facility] CtrPLATELET COUNT44(L)150 - 450 10*3/uL08/16/2025 8:40 AM [facility] CtrMEAN PLATELET VOLUME, MPV7.96.3 - 10.7 fL08/16/2025 8:40 AM [facility] Ctr NEUTROPHILS, %36.0. %08/16/2025 9:03 AM [facility] Ctr LYMPHOCYTES, %16.6. %08/16/2025 9:03 AM [facility] Ctr MONOCYTE/MACROPHAGE, %13.4. %08/16/2025 9:03 AM [facility] CtrEOSINOPHILS, %33.6. %08/16/2025 9:03 AM [facility] Ctr BASOPHILS, %0.4. %08/16/2025 9:03 AM [facility] CtrNRBC0.00 - 0.5 /100{WBC}08/16/2025 9:03 AM [facility] CtrNEUTROPHILS0.7 (L)1.8 - 7.7 10*3/uL08/16/2025 9:03 AM [facility] Ctr LYMPHOCYTES0.3(L)1.00 - 4.8 10*3/uL08/16/2025 9:03 AM [facility] CtrMONOCYTES0.20.0 - 0.8 10*3/uL08/16/2025 9:03 AM [facility] CtrEOSINOPHILS0.6(H)0.0 - 0.45 10*3/uL08/16/2025 9:03 AM [facility] CtrBASOPHILS0.00.0 - 0.2 10*3/uL08/16/2025 9:03 AM [facility] FxcHVRMGFXPFWPtpbjw92/15/2025 9:03 AM [facility] CtrPLATELET XZLAXPBNJtsdzdmznGoaxrf01/15/2025 9:03 AM [facility] CtrPLATELET GSVDLGGXJMYmflljLnmkxh23/15/2025 9:03 AM [facility] CtrSpecimen (Source)Anatomical Location / Laterality Collection Method / VolumeCollection TimeReceived TimeBlood (Blood)08/16/2025 8:14 AM EDT1 8:18 AM EDT Narrative Authorizing ProviderResult TypeResult StatusFabiola Marinelli MDLAB BLOOD ORDERABLES Final ResultPerforming OrganizationAddressCity/State/ZIP CodePhone Number [facility] [address] [facility] [place] [address], [facility] [address] [place] [address] * Iron and TIBC (08/16/2025 8:14 AM EDT) Only the most recent of2 resultswithin the time period is included. ComponentValueRef RangeTest MethodAnalysis TimePerformed AtPathologist Signature WVQM3285 - 212 ug/dL08/16/2025 8:48 AM [facility] CtrTOTAL IRON BINDING KFTRTDUD192052 - 450 ug/dL08/16/2025 8:48 AM [facility] Ctr% IRON OXOALOBLSJ33.920 - 50 %08/16/2025 8:48 AM [facility] CpcYGULOBZQZZC664475 - 362 mg/dL08/16/2025 8:48 AM [facility] CtrSpecimen (Source)Anatomical Location / LateralityCollection Method / VolumeCollection TimeReceived TimeOtherTopography unknown / Unknown 08/16/2025 8:14 AM EDT1 8:18 AM EDT Narrative Authorizing ProviderResult TypeResult StatusFabiola Marinelli MDLAB BLOOD ORDERABLES Final ResultPerforming OrganizationAddressCity/State/ZIP CodePhone Number [facility] [address] [place] [address], [facility] [address] [place] [address] * Ferritin (08/16/2025 8:14 AM EDT) Only the most recent of2 resultswithin the time period is included. ComponentValueRef RangeTest MethodAnalysis TimePerformed AtPathologist Signature XKDSHDBK338.111.0 - 306.8 ng/mL08/16/2025 9:07 AM [facility] CtrSpecimen (Source)Anatomical Location / LateralityCollection Method / Volume Collection TimeReceived TimeOtherTopography unknown / Qtaxauh6908/16/2025 8:14 AM EDT1 8:18 AM EDT Narrative Authorizing ProviderResult TypeResult StatusFabiola Marinelli MDLAB BLOOD ORDERABLES Final ResultPerforming OrganizationAddressCity/State/ZIP CodePhone Number [facility] [address] [place] [address], [facility] [address] [place] [address] * (ABNORMAL) Comprehensive metabolic panel (08/16/2025 8:14 AM EDT) Only the most recent of8 resultswithin the time period is included. ComponentValueRef RangeTest MethodAnalysis TimePerformed AtPathologist Signature Hzrstyr116(H)70 - 100 mg/dL08/16/2025 8:48 AM [facility] Ctr Comment: Random Glucose Reference Range is dependent on time and content of last meal. Glucose of more than 200 mg/dL in a nonstressed, ambulatory subject supports the diagnosis of Diabetes Mellitus. ADA recommended reference range SSH270 - 25 mg/dL08/16/2025 8:48 AM [facility] CtrCREATININE 0.990.60 - 1.20 mg/dL08/16/2025 8:48 AM [facility] Ctr ESTIMATED GFR>60. 8:48 AM [facility] KveDpukyy267 136 - 145 mmol/L1 8:48 AM [facility] CtrPotassium, Bld4.13.5 - 5.1 mmol/L1 8:48 AM [facility] Ctr Iqcpyusr02456 - 107 mmol/L1 8:48 AM [facility] Ctr Carbon Tldwifh02.521.0 - 31.0 mmol/L1 8:48 AM [facility] CtrAnion Gap8.66.0 - 15. 8:48 AM [facility] CtrCalcium9.08.6 - 10.3 mg/dL08/16/2025 8:48 AM [facility] CtrTOTAL PROTEIN5.5(L)6.4 - 8.9 g/dL08/16/2025 8:48 AM [facility] CtrALBUMIN LEVEL3.63.5 - 5.7 g/dL08/16/2025 8:48 AM EDT [facility] CtrGLOBULIN1.9g/dL08/16/2025 8:48 AM [facility] CtrALBUMIN/GLOBULIN RATIO1.91 8:48 AM [facility] CtrBILIRUBIN,TOTAL0.90.3 - 1.0 mg/dL08/16/2025 8:48 AM EDT [facility] CtrASPARTATE AMINO RRNHAHRZKUH5032 - 39 U/L1 8:48 AM [facility] CtrALANINE RPDFTLCEBEHRYMJY134 - 52 U/L 08/16/2025 8:48 AM [facility] CtrALKALINE NNHYGYMYWYI7278 - 104 U/L1 8:48 AM [facility] CtrCREATININE CLR CALC DWMPWMBQ53.181 8:48 AM [facility] CtrSpecimen (Source)Anatomical Location / LateralityCollection Method / VolumeCollection TimeReceived TimeOtherTopography unknown / Njecgbi1508/16/2025 8:14 AM EDT 08/16/2025 8:18 AM EDT Narrative Authorizing ProviderResult TypeResult StatusFabiola Marinelli MDLAB BLOOD ORDERABLES Final ResultPerforming OrganizationAddressCity/State/ZIP CodePhone Number [facility] [address] [place] [phone], [facility] [address] [place] [address] * IMMUNOGLOBULINS A/E/G/M, QN ([facility] (08/02/2025 10:00 AM EDT) Only the most recent of2 resultswithin the time period is included. ComponentValueRef RangeTest MethodAnalysis TimePerformed AtPathologist Signature IMMUNOGLOBULIN [id number] - 1,602 mg/dL08/07/2025 6:36 AM [facility]TFSUM[facility] IMMUNOGLOBULIN A, SERUM<587 - 352 mg/dL08/07/2025 6:36 AM EDTFIRELANDSComment: Result confirmed on concentration.IMMUNOGLOBULIN M, SERUM<526 - 217 mg/dL 08/07/2025 6:36 AM EDTFIRELANDSComment:Result confirmed on concentration. IMMUNOGLOBULIN E<26 - 7243908/07/2025 6:36 AM EDTFIRELANDSComment: Performed at: ?? - [facility] [address] ??[id number] Rodent Control Worker: Lang Knight PhD, Phone: ??[phone] Performed at: ??[address] ??[id number] Rodent Control Worker: Maxine Briones MD, Phone: ??[phone] Specimen (Source)Anatomical Location / LateralityCollection Method / Volume Collection TimeReceived TimeOtherTopography unknown / Vxvylvu3408/02/2025 10:00 AM EDT1 10:04 AM EDT Narrative Authorizing ProviderResult TypeResult StatusFabiola Marinelli MDLAB BLOOD ORDERABLES Final ResultPerforming [facility]AddP[facility] CenterPhone Number [facility] [address] [place] [address], [place] * Copper, serum (08/02/2025 10:00 AM EDT)ComponentValueRef RangeTest Method Analysis TimePerformed AtPathologist YpcmptlavTCUEGH41030 - 158 ug/dL 08/08/2025 10:06 PM EDTFIRELANDSComment: This test was developed and its performance characteristics determined by [facility]. It has not been cleared or approved by the Food and Drug Administration. ?Detection Limit = 5 Performed at: ??[address] ??[id number] Rodent Control Worker: Maxine Briones MD, Phone: ??[phone] Specimen (Source)Anatomical Location / LateralityCollection Method / Volume Collection TimeReceived TimeOtherTopography unknown / Wfqokns6008/02/2025 10:00 AM EDT1 10:04 AM EDT Narrative Authorizing ProviderResult TypeResult StatusFabiola Marinelli MDLAB BLOOD ORDERABLES Final ResultPerforming OrganizationAddPenn State Health Rehabilitation [facility] CenterPhone Number [facility] [address] [place] [address], [place] * Ceruloplasmin (08/02/2025 10:00 AM EDT)ComponentValueRef RangeTest Method Analysis TimePerformed AtPathologist FqqxqmxjkODALOQXWLSDUL44.419.0 - 39.0 mg/dL08/03/2025 3:36 AM [facility]Comment: Performed at: ??CB - [facility] [address] ??[id number] Rodent Control Worker: Lang Knight PhD, Phone: ??[phone] Specimen (Source)Anatomical Location / LateralityCollection Method / Volume Collection TimeReceived TimeOtherTopography unknown / Igmtith5908/02/2025 10:00 AM EDT1 10:04 AM EDT Narrative Authorizing ProviderResult TypeResult StatusFabiola Flower Yves WILAB BLOOD ORDERABLES Final ResultPerforming OrganizationAddressCity/State/ZIP CodePhone Number [facility] [address] [place] [address], * Folate (08/02/2025 10:00 AM EDT)ComponentValueRef RangeTest MethodAnalysis TimePerformed AtPathologist SignatureFOLATE9.9>5.9 ng/mL08/02/2025 11:02 AM [facility] CtrComment: Folate reference range: >5.9 ng/ml The WHO technical consultation on folate and vitamin b12 deficiencies has determined that folate concentrations less than 4 ng/ml are considered deficient. Specimen (Source)Anatomical Location / LateralityCollection Method / Volume Collection TimeReceived TimeOtherTopography unknown / Ztlywdt7408/02/2025 10:00 AM EDT1 10:04 AM EDT Narrative Authorizing ProviderResult TypeResult StatusFabiola Ching Yves JASSOLAB BLOOD ORDERABLES Final ResultPerforming OrganizationAddressty/State/ZIP CodePhone Number [facility] [address] [place] [address], [facility] [address] [place] [address] * (ABNORMAL) Vitamin B12 (08/02/2025 10:00 AM EDT)ComponentValueRef RangeTest MethodAnalysis TimePerformed AtPathologist SignatureVITAMIN B121,113(H)180 - 914 pg/mL08/02/2025 11:03 AM [facility] CtrSpecimen (Source)Anatomical Location / LateralityCollection Method / VolumeCollection TimeReceived TimeOtherTopography unknown / Pnznarn1208/02/2025 10:00 AM EDT 08/02/2025 10:04 AM EDT Narrative Authorizing ProviderResult TypeResult StatusFabiola Marinelli MDLAB BLOOD ORDERABLES Final ResultPerforming OrganizationAddressCity/State/ZIP CodePhone Number [facility] [address] [place] [address], [facility] [address] [place] [address] * (ABNORMAL) DIFF AND CBC (07/12/2025 8:06 AM EDT) Only the most recent of2 resultswithin the time period is included. ComponentValueRef RangeTest MethodAnalysis TimePerformed AtPathologist Signature WBC2.5(L)3.8 - 11.6 [CFU]/mL07/12/2025 8:33 AM [facility] Ctr UNCORRECTED WHITE BLOOD COUNT2.5(L)3.8 - 11.6 10*3/uL07/12/2025 8:33 AM EDT [facility] CtrRBC3.52(L)3.60 - 5.00 10*6/uL07/12/2025 8:33 AM [facility] RasXODCKGKGGH77.6(L)11.8 - 15.4 g/dL07/12/2025 8:33 AM [facility] IkjVDZGJORUTO88.534.0 - 46.4 %07/12/2025 8:33 AM [facility] YxxOKT04.080 - 100 fL07/12/2025 8:33 AM [facility] HslJDO71.924.7 - 34.3 pg07/12/2025 8:33 AM [facility] UuhLMEW14.532.0 - 35.0 g/dL07/12/2025 8:33 AM [facility] CtrRED CELL DISTRIBUTION WIDTH, RDW15.211.9 - 15.3 % 07/12/2025 8:33 AM [facility] CtrPLATELET COUNT57(L)150 - 450 10*3/uL07/12/2025 8:33 AM [facility] CtrMEAN PLATELET VOLUME, MPV9.06.3 - 10.7 fL07/12/2025 8:33 AM [facility] Ctr SEGMENTED TSFFYLMYAOW60(L)50 - 70 %07/12/2025 9:09 AM [facility] CtrBAND LHCGTWOSVUX26 - 5 %07/12/2025 9:09 AM [facility] EplLBJKSPRHTVI6725 - 42 %07/12/2025 9:09 AM [facility] BqxYCLFXYFRQ97(H)2 - 11 %07/12/2025 9:09 AM [facility] AloSNJAQMWKWZG54(H)1 - 3 %07/12/2025 9:09 AM [facility] RfcIFZNRWIWZRSXANHztvfwwg55/10/2025 9:09 AM [facility] VflJGJEVZZHAWYxgvnqzl29/10/2025 9:09 AM [facility] CtrPLATELET BTZKLPQIGyzjeulqxJvbsem47/10/2025 9:09 AM [facility] CtrPLATELET DSNOCFRSRPEoxagaIeggbf29/10/2025 9:09 AM [facility] CtrSpecimen (Source)Anatomical Location / LateralityCollection Method / VolumeCollection TimeReceived TimeBlood (Blood)07/12/2025 8:06 AM EDT 07/12/2025 8:16 AM EDT Narrative Authorizing ProviderResult TypeResult StatusFabiola Marinelli MDLAB BLOOD ORDERABLES Final ResultPerforming OrganizationAddressCity/State/ZIP CodePhone Number [facility] [address] [place] [phone], [facility] [address] [place] [phone] * IMMUNOFIXATION,SERUM ([facility]) (07/12/2025 8:06 AM EDT) Only the most recent of2 resultswithin the time period is included. ComponentValueRef RangeTest MethodAnalysis TimePerformed AtPathologist Signature IMMUNOFIXATION, SERUMComment.07/14/2025 2:09 PM EDTFIREWHITMAN HOSPITAL AND MEDICAL CENTERComment:No monoclonality detected.IMMUNOGLOBULIN [id number] - 1,602 mg/dL07/14/2025 2:09 PM EDTFSUMMIT PACIFIC MEDICAL CENTERIMMUNOGLOBULIN A, SERUM<587 - 352 mg/dL07/14/2025 2:09 PM EDT [facility]:Result confirmed on concentration.IMMUNOGLOBULIN M, SERUM<526 - 217 mg/dL07/14/2025 2:09 PM EDTFIRELANDSComment: Result confirmed on concentration. Performed at: ??[address] ??[id number] Rodent Control Worker: Lang Knight PhD, Phone: ??[phone] Specimen (Source)Anatomical Location / LateralityCollection Method / Volume Collection TimeReceived TimeOtherTopography unknown / Kiajwhn1907/12/2025 8:06 AM EDT07/12/2025 8:16 AM EDT Narrative Authorizing ProviderResult TypeResult StatusFabiola Flower Yves [facility] BLOOD ORDERABLES Final ResultPerforming [facility] HospitalAddP[facility] CodePhone [address] [place] [phone], [place] * AFP tumor marker (07/12/2025 8:06 AM EDT) Only the most recent of2 resultswithin the time period is included. ComponentValueRef RangeTest MethodAnalysis TimePerformed AtPathologist Signature AFP TUMOR MARKER, SERUM4.60.0 - 9.2 ng/mL07/13/2025 12:09 PM EDTFIRELANDS Comment: [facility] Electrochemiluminescence Immunoassay (ECLIA) Values obtained with different assay methods or kits cannot be used interchangeably. ??Results cannot be interpreted as absolute evidence of the presence or absence of malignant disease. This test is not interpretable in females. Performed at: ??[address] ??[id number] Rodent Control Worker: Lang Knight PhD, Phone: ??[phone] Specimen (Source)Anatomical Location / LateralityCollection Method / Volume Collection TimeReceived TimeOtherTopography unknown / Nfrhihr5607/12/2025 8:06 AM EDT07/12/2025 8:16 AM EDT Narrative Authorizing ProviderResult TypeResult StatusFabiola Flower Yves [facility] BLOOD ORDERABLES Final ResultPerforming [facility] HospitalAddP[facility] At [facility] CenterPhone [address] [place] [phone], [place] * Protein electrophoresis, serum (07/12/2025 8:06 AM EDT) Only the most recent of2 resultswithin the time period is included. ComponentValueRef RangeTest MethodAnalysis TimePerformed AtPathologist Signature TOTAL PROTEIN, SERUM5.46.0 - 8.5 g/dL07/13/2025 2:08 PM EDTFIRELANDSALBUMIN, SERUM3.12.9 - 4.4 g/dL07/13/2025 2:08 PM GNWAGMLBOFCIZZDNQ-8-XZJWFMKH4.30.0 - 0.4 g/dL07/13/2025 2:08 PM WJIHZAONILGCWYQQZ-8-RMCKKLLX3.70.4 - 1.0 g/dL 07/13/2025 2:08 PM EDTFIRELANDSBETA GLOBULIN0.80.7 - 1.3 g/dL07/13/2025 2:08 PM EDTFIRELANDSGAMMA GLOBULIN0.40.4 - 1.8 g/dL07/13/2025 2:08 PM EDTFIRELANDS M-SPIKENot ObservedNot Observed g/dL07/13/2025 2:08 PM EDTFIRELANDSGLOBULIN, TOTAL2.32.2 - 3.9 g/dL07/13/2025 2:08 PM EDTFIRELANDSA/G RATIO1.30.7 - 1.7 07/13/2025 2:08 PM EDTFIRELANDSSPE-NOTEComment.07/13/2025 2:08 PM EDTFIRELANDS Comment: Protein electrophoresis scan will follow via computer, mail, or lead systems architect delivery. Performed at: ??CB - [facility] [address] ??[id number] Rodent Control Worker: Lang Knight PhD, Phone: ??[phone] Specimen (Source)Anatomical Location / LateralityCollection Method / Volume Collection TimeReceived TimeOtherTopography unknown / Vhyjjvr0807/12/2025 8:06 AM EDT07/12/2025 8:16 AM EDT Narrative Authorizing ProviderResult TypeResult StatusFabiola Marinelli MDLAB BLOOD ORDERABLES Final ResultPerforming OrganizationAddressCity/State/ZIP CodePhone Number [facility] [address] [place] [address], * FREE K+L LT CHAINS, QN, S (06/07/2025 10:13 AM EDT)ComponentValueRef RangeTest MethodAnalysis TimePerformed AtPathologist SignatureFREE KAPPA LIGHT CHAINS, S<0.73.3 - 19.4 mg/L06/08/2025 2:36 PM EDTFIRELANDSFREE LAMBDA LIGHT CHAINS, S 5.85.7 - 26.3 mg/L06/08/2025 2:36 PM EDTFIRELANDSKAPPA/LAMBDA RATIO, S<0.12 0.26 - 1.6508 2:36 PM EDTFIRELANDSComment: Performed at: ?? - [facility] [address], [place], [place] ??[id number] Rodent Control Worker: Lang Knight PhD, Phone: ??[phone] Specimen (Source)Anatomical Location / LateralityCollection Method / Volume Collection TimeReceived TimeOtherTopography unknown / Hsyvunp5706/07/2025 10:13 AM EDT06/07/2025 10:20 AM EDT Narrative Authorizing ProviderResult TypeResult StatusFabiola KIRKPATRICK BLOOD ORDERABLES Final ResultPerforming OrganizationAddressCity/State/ZIP CodePhone Number [address] * Diabetic Retinopathy Screening - OU - Both Eyes (06/06/2025 10:06 AM EDT) Anatomical RegionLateralityModalityHeadOther Narrative Authorizing ProviderResult TypeResult StatusDahoward Swain DOOPHTH PHOTOGRAPHY Final Result * Hemoglobin A1c (05/22/2025 9:45 AM EDT)Specimen (Source)Anatomical Location / LateralityCollection Method / VolumeCollection TimeReceived TimeBloodVenous blood specimen / Unknown Narrative Authorizing ProviderResult TypeResult StatusDahoward Swain DOLAB BLOOD ORDERABLES Final ResultPerforming OrganizationAddressCity/State/ZIP CodePhone Number EXTERNAL LAB * Microalbumin / creatinine urine ratio (08/26/2024 12:23 PM EDT)ComponentValue Ref RangeTest MethodAnalysis TimePerformed AtPathologist Signature MICROALBUMIN, URINE< 0.70.0 - 1.810 1:19 PM [facility] CtrCREATININE, URINE (RANDOM)11.00mg/dL08/26/2024 1:17 PM [facility] CtrComment:No reference range established MICROALBUMIN/CREATININE RATIOTest not performed0.0 - 30.010 1:19 PM EDTFUniversity Hospitals [facility] CtrSpecimen (Source)Anatomical Location / LateralityCollection Method / VolumeCollection TimeReceived TimeOtherUrine specimen obtained by clean catch procedure / Gbuxiyz6308/26/2024 12:23 PM EDT 08/26/2024 12:23 PM EDT Narrative Authorizing ProviderResult TypeResult StatusAmy Warchol NPLAB URINE ORDERABLES Final ResultPerforming OrganizationAddressCity/State/[facility] CodePhone Number [facility] [address] [place] [address], [facility] [address] [place] [address] * MM TOMOSYNTHESIS SCREENING BI (08/18/2024 3:19 PM EDT)Anatomical Region LateralityModalityOtherSpecimen (Source)Anatomical Location / Laterality Collection Method / VolumeCollection TimeReceived Time08/18/2024 3:19 PM EDT Narrative 08/18/2024 3:20 PM EDT [facility] ?[address] ? [place] [address] ? Mammography Report ? Signed ? Patient: SNIDER,MOJGAN S ?MR#: [id number] ?? : 1955 ?Acct:[id number] ?? Age/Sex: 68 / F ?ADM Date: 08/18/ ?? Loc: MAMMO ? Attending Dr: YINKA THOMSON ? Ordering Physician: YINKA THOMSON ? Results: ? Date of Service: 08/18/ ?Follow Up: ? Procedure(s): MM tomosynthesis screening BI ?? Accession Number(s): [id number] ? cc: YINKA THOMSON ? Patient Name: ? MOJGAN SNIDER ? MR#: [id number] ? : 1955 ? Exam Date: 08/18/2024 ?? Ordering Doctor: DR YINKA THOMSON M.D. ? RADIOLOGY REPORT ? PROCEDURE: ? MM TOMOSYNTHESIS SCREENING BI ? COMPARISON: ? MG MAMM SCREEN BRENDA W CAD, 03/23/2019. ??MG MAMM SCREEN 3D BRENDA ?? CAD, 10/16/2022. ? INDICATIONS: ? Screening ? Calculator Name ? NCI Breast Cancer Risk Assessment Tool ?? 5 Year Breast Cancer Risk ? 5.10% ?? Lifetime Breast Cancer Risk ? 17.40% ?? Personal Breast Cancer ?No ?? Personal Ovarian Cancer ? No ?? Treatments ? None ?? Family Cancers ? Sister with breast cancer at age 52; Mother with colon ?? cancer at age 78; Father with prostate cancer at age 76; Brother with lung ?? cancer at age 64. ? LOCATION: ? [facility] ? BREAST COMPOSITION: ? There are scattered areas of fibroglandular density. ? FINDINGS: ? DIAGNOSTIC CATEGORY 2--BENIGN FINDING. NO CHANGE FROM COMPARISON. ??Scattered ?? benign-appearing calcifications are present. ? RIGHT BREAST: ??No significant suspicious finding. ? LEFT BREAST: ??No significant suspicious finding. ? RECOMMENDATIONS: ? ROUTINE MAMMOGRAM AND CLINICAL EVALUATION IN 12 MONTHS. ? PLEASE NOTE: ??A NORMAL MAMMOGRAM DOES NOT EXCLUDE THE POSSIBILITY OF BREAST ?? CANCER. ??A CLINICALLY SUSPICIOUS PALPABLE LUMP SHOULD BE BIOPSIED. ? Dictated by: Douglas Lozano MD on 08/18/2024 at 15:11 ? Approved by: Douglas Lozano MD on 08/18/2024 at 15:19 ? Dictated By: ?Douglas Lozano M.D. ? Signed By: ?08/18/24 1520 ? DD/ 1519 ? TD/TT: ? Cellular Tower Climber: Procedure Note Radiology, Radiologist, - 08/18/2024 [place] [address] Mammography Report Signed Patient: MOJGAN SNIDER SMR#: [id number] : 1955cct:[id number] Age/Sex: 68 / FADM Date: 08/18/24 Loc: MAMMO Attending Dr: YINKA THOMSON Ordering Physician: YINKA THOMSONResults: Date of Service: 08/18/24Follow Up: Procedure(s): MM tomosynthesis screening BI Accession Number(s): [id number] cc: YINKA THOMSON Patient Name: MOJGAN SNIDER MR#: [id number] : 1955 Exam Date: 08/18/2024 Ordering Doctor: [...] lung cancer at age 66. LOCATION: [facility] BREAST COMPOSITION: There are scattered areas of [...] M.D. Signed By:08/18/24 1520 DD/ 1519 TD/TT: Cellular Tower Climber: Authorizing ProviderResult TypeResult Melisa Thomson MDCLINISYNC IMAGING Final Result * Colonoscopy (09/15/2018 12:00 PM EST)Anatomical RegionLateralityModality EndoscopySpecimen (Source)Anatomical Location / LateralityCollection Method / VolumeCollection TimeReceived Time09/15/2018 12:00 PM EST Narrative 09/15/2018 12:00 PM EST PERFORMED AT [facility] LOCATION:[id number] Abnormal Procedure Note CONVERSION, GENERIC - 03/18/2023 PERFORMED AT [facility] LOCATION:[id number] Abnormal Authorizing ProviderResult TypeResult Melisa Thomson MDENDOSCOPY PROCEDURE ORDERABLESFinal Result from Last 3 Months or Most Recently Relevant to Health Maintenance [place] [address] Advance Directives * Full Code (Latest Code Status on File) Date ActivatedDate [facility]03/01/2025 2:43 PM Care Teams Team MemberRelationshipSpecialtyStart DateEnd Date Yinka Thomson MD [address] [place] [address] PCP - [facility]CO [facility]03/26/23 Power Swain DO [address] [place] [address] [place] [id number] PCP - GeneralFamily Medicine04/25/25 Sima Paul, [place]ES [address] [place] [address] Registered NurseFamily Ctmhhhfb67/23/23
--- OUTSIDE RECORDS SUMMARY | 2025-08-27 18:09 | XMS_ITS | Clinical Summary ---
Author Organization [facility] Address [address] [place] [address] Phone Care Team Providers Care Conference Translator Name Role Phone Supa Lindquist MD PhD Unavailable [phone] Jessica Grove RN Unavailable Unavailable Lisette Perkins ACTUARIAL TECHNICIAN-INSURANCE UNDERWRITING ASSISTANT Unavailable [phone] Theresa Romano MD PhD Unavailable [phone] Negro Epps MD PhD Unavailable [phone] Power Swain DO Primary Care Provider [phone] Allergies Active AllergyReactionsCriticalityNoted IygqUkzbyyqbEbefujbzQqlpkYag96/14/2016 AmoxicillinSwelling,AdpmQjg22//7262BxnrkeaphuHasnxpcKro02/20/2023Moxifloxacin HhpwDoa0008/04/20234043LuyrvhzfqxPpbnuOzu13/24/2491MrcstfltklrbYvlomIln97/30/2013Latex Hives,SuhoIpzdxy14/03/2023TetracyclinesHives,GwkgXhmsap68/03/2023 Medications MedicationSigDispense QuantityRefillsLast FilledStart DateEnd DateStatus albuterol 90 mcg/actuation inhaler Inhale 2 puffs every 4 hours if needed for shortness of breath or wheezing. 07/14/2023ctive atorvastatin (Lipitor) 80 mg tablet Take 1 tablet (80 mg) by mouth once daily.06/07/2023ctive carvedilol (Coreg) 12.5 mg tablet Take 1 tablet (12.5 mg) by mouth 2 times daily (morning and late afternoon). 05/12/2023ctive ondansetron ODT (Zofran-ODT) 8 mg disintegrating tablet Dissolve 1 tablet (8 mg) in the mouth every 8 hours if needed for vomiting or nausea.07/29/2023ctive oxyCODONE (Roxicodone) 10 mg immediate release tablet Take 1 tablet (10 mg) by mouth 4 times a day as needed for severe pain (7 - 10). 07/27/2023ctive potassium chloride ER (Micro-K) 10 mEq ER capsule Take 1 capsule (10 mEq) by mouth once daily.05/18/2023ctive metFORMIN (Glucophage) 500 mg tablet Take 1 tablet (500 mg) by mouth 1 time.Active omeprazole (PriLOSEC) [address] capsule Take 1 capsule (40 mg) by mouth once daily. Do not crush or chew.Active fluticasone (Flonase) 50 mcg/actuation nasal spray Administer 1 spray into each nostril once daily as needed for rhinitis. Shake gently. Before first use, prime pump. After use, clean tip and replace cap. Active cyanocobalamin, vitamin B-12, 1,000 mcg tablet, sublingual Place 1 tablet (1,000 mcg) under the tongue once daily.Active cholecalciferol (Vitamin D-3) 125 MCG (5000 UT) capsule Take 1 capsule (125 mcg) by mouth once daily.Active melatonin 1 mg tablet Take 2 tablets (2 mg) by mouth once daily at bedtime.Active DULoxetine (Cymbalta) [address] capsule Indications:Depression, unspecified depression typeTake 1 capsule (60 mg) by mouth once daily. 30 capsule 01/12/2024ctive naloxone (Narcan) 4 mg/0.1 mL nasal spray Indications:Cough, unspecified type,Other chronic painAdminister 1 spray (4 mg) into affected nostril(s) if needed for opioid reversal. May repeat every 2-3 minutes if needed, alternating nostrils, until medical assistance becomes available. 2 each 02/01/2024ctive EPINEPHrine 0.3 mg/0.3 mL injection syringe 02/22/2024ctive gabapentin (Neurontin) 400 mg capsule TAKE 1 CAPSULE ORALLY THREE TIMES DAILY FOR PAIN FOR 30 DAYS02/11/2024ctive ntihkyouvd-lbswyohu-bmrglwhlkt (Breztri Aerosphere) 160-9-4.8 mcg/actuation HFA aerosol inhaler Inhale 2 puffs 2 times a day.Active acyclovir (Zovirax) 400 mg tablet Indications:Multiple myeloma not having achieved remission (Multi)Take 1 tablet (400 mg) by mouth 2 times a day. 180 tablet ctive sulfamethoxazole-trimethoprim (Bactrim DS) 800-160 mg tablet Indications:Multiple myeloma, remission status unspecified (Multi)Take 1 tablet by mouth once a day on Thursday, Thursday, and Thursday. 12 tablet ctive furosemide (Lasix) 20 mg tablet Take 1 tablet (20 mg) by mouth early in the morning..10/06/2024ctive hydrocortisone (Anusol-HC) 2.5 % rectal cream APPLY RECTALLY 2 TO 4 TIMES PER DAY NEEDED FOR CLBOMKJWOLI04/15/2025Active Ozempic 0.25 mg or 0.5 mg (2 mg/3 mL) pen injector Inject 0.5 mg under the skin 1 (one) time per week.08/23/2024ctive spironolactone (Aldactone) 50 mg tablet Take 1 tablet (50 mg) by mouth early in the morning..10/06/2024ctive Active Problems ProblemNoted DateDiagnosed DateMultiple myeloma not having achieved remission 10/20/20236045Gqobnvuufhwn97/13/2023 Assessment & Plan (08/17/2023 7:42 AM EDT): Due to disease and chemotherapy Transfuse for Hgb < 7 g/dL and platelets < 10 k/uL or bleeding Assessment & Plan (08/14/2023 11:02 AM EDT): :: Due to disease and chemotherapy - Transfuse for Hgb < 7 g/dL and platelets < 10 k/uL or bleeding Oafohatoazcm26/04/1257Kawgvkknmzjfby28/04/2023Type 2 diabetes grysusum56/04/2023 Peripheral iajxxgedtp26/04/2023Multiple jcmjeco0108/03/2023 Assessment & Plan (09/28/2023 6:52 PM EST): Referral from Dr. Marinelli at [facility]. MGUS since [address] [facility] by Dr. Kumari, and then [...] Since the marrow was obtained in what waspossibly radiation field this may not be entirely ambulatory service representative. Also clonal evolution in the marrow with the most recent marrow showing additional cytogenetic abnormalities. 07/23/23 Restaging labs: free lambda light chain 35.95 mg/dL (up from 5.65 mg/dL in December 2022) and free-lambda M-spike of 0.1 g/dL Teclistamab ramp-up (08/04-08/06-08/09/23): complicated grade-I CRS (fevers) and ICANS (suzanna ICE score 8/10) C2D1 teclistamab weekly (08/17/23, 08/25/23, 09/01/23, 09/08/23). Changed threshold notification forplt <35. 09/08/23 K/L ratio 0.01; IgG 338. [...] Plan, so I will enter these outside Pzvvqzeklp44/19/5764Sfxhnttuvmia44/19/4782Wdpsqpjgfetdulxzazjnb13/19/2023 Immunodeficiency gowmpxat80/06/2021 Assessment & Plan (02/14/2024 6:23 PM EDT): Infection prophylaxis VZV: Acyclovir 400 mg PO BID PJP: Trimethoprim-sulfamethoxazole 800-160 mg PO 3x weekly Hypogammaglobulinemia IVIG given 09/22/23, 10/29/23 ([facility]) 12/08/23 01/12/24 02/12/24. Cont monthly. Assessment & Plan (01/28/2024 12:26 PM EDT): Infection prophylaxis VZV: Acyclovir 400 mg PO BID PJP: Trimethoprim-sulfamethoxazole 800-160 mg PO 3x weekly Hypogammaglobulinemia IVIG given 09/22/23, 10/29/23 ([facility]) 12/08/23 and 01/12/24. Cont monthly. Assessment & Plan (01/14/2024 10:27 AM EDT): Infection prophylaxis VZV: Acyclovir 400 mg PO BID PJP: Trimethoprim-sulfamethoxazole 800-160 mg PO 3x weekly Hypogammaglobulinemia IVIG given 09/22/23, 10/29/23 ([facility]) and 12/08/23. Plan next today 01/12/24. Assessment & Plan (01/03/2024 11:33 AM EST): Infection prophylaxis VZV: Acyclovir 400 mg PO BID PJP: Trimethoprim-sulfamethoxazole 800-160 mg PO 3x weekly Hypogammaglobulinemia IVIG given 09/22/23, 10/29/23 ([facility]) and 12/08/23. Plan next dose 01/05/24. Assessment & Plan (11/28/2023 4:08 PM EST): Infection prophylaxis VZV: Acyclovir 400 mg PO BID PJP: Trimethoprim-sulfamethoxazole 800-160 mg PO 3x weekly Hypogammaglobulinemia IVIG given 09/22/23 and 10/29/23 ([facility]) Plan next dose 12/08/23 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)07/11/2019 Primary localized osteoarthrosis of ankle and foot06/01/2019Chronic obstructive pulmonary ytofmvu3004/19/2019Smoldering cbinxkk7404/19/2019Thoracic aortic aneurysm without cqtwvkx6604/15/2019GERD (gastroesophageal reflux disease)04/07/2018Morbid oezfrqd7011/11/2017Familial qzkkjjxsslefjisnkbtz49/12/2015Thrombocytopenia 05/31/2014Sleep apnea04/15/2006Monoclonal xylyzdiwplhwgva06/25/2006 Resolved Problems ProblemNoted DateDiagnosed DateResolved DateImmunosuppressed idlwyx9808/14/2023 11/27/2023 Assessment & Plan (11/18/2023 12:39 PM EST): Infection prophylaxis VZV: Continue acyclovir 400 mg PO BID PJP: Continue trimethoprim-sulfamethoxazole 800-160 mg PO 3x weekly Hypogammaglobulinemia IVIG given 09/22/23 and 10/29/23 ([facility]) Assessment & Plan (08/17/2023 7:42 AM EDT): - VZV: Continue acyclovir 400 mg PO BID - PJP: Continue trimethoprim-sulfamethoxazole 800-160 mg PO 3x weekly Assessment & Plan (08/14/2023 10:20 AM EDT): - VZV: Continue acyclovir 400 mg PO BID - PJP: Continue trimethoprim-sulfamethoxazole 800-160 mg PO 3x weekly Multiple myeloma, remission status kepehztmjly02Obesity, Class III, BMI 40-49.9 (morbid obesity)typical chest pain Vitamin D dlirzfftvq57 Encounters DateTypeDepartmentCare YtewHpwhmzimyxf06/21/2025 7:57 AM EDTAnesthesia Event [facility] [address] [place] [phone] Justus Rodriguez MD Patterson, George W, [facility] 06/22/2025 5:57 AM EDT - 06/22/2025 11:59 PM EDTHospital Encounter [address] [phone] Liver cell carcinoma (Multi) Discharge Disposition: Home06/22/2025 5:56 AM EDTHospital Encounter [address] [phone] Liver cell carcinoma (Multi) Discharge Disposition: Home06/22/2025Travelfrom Last 3 Months Immunizations ImmunizationAdministration DatesNext DueFlu vaccine (IIV4), preservative free *Check age/dose*09/12/2019,10/14/2018Influenza, Pksaaxvahyd74/11/2019Influenza, seasonal, uaselihfpl77/14/2015Influenza, seasonal, intradermal, preservative free10/05/2017Pneumococcal conjugate vaccine, 13-valent (PREVNAR 13)07/16/2015 Pneumococcal polysaccharide vaccine, 23-valent, age 2 years and older (PNEUMOVAX 23)10/05/2017 Family History Medical HistoryRelationNameCommentsLung cancerBrotherCancerFatherCoronary artery diseaseFatherLeukemiaMaternal GrandmotherCancerMotherCancerPaternal Grandmother Breast cancerSisterRelationNameStatusCommentsBrotherFatherMaternal Grandmother MotherPaternal GrandmotherSister Social History Tobacco UseTypesPacks/DayYears UsedDateSmoking Tobacco: EsqnxsGpftqgrhcz586.7 11/02/1976 - 08/02/2003Passive Smoke Exposure: PastSmokeless Tobacco: Never Tobacco Cessation:Counseling Given: Not Answered Alcohol UseStandard Drinks/WeekCommentsNot Currently0 (1 standard drink = 0.6 oz pure alcohol)AUDIT-CAnswerDate RecordedQ1: How often do you have a drink containing alcohol?Never11/18/2023Q2: How many drinks containing alcohol do you have on a typical day when you are drinking?Patient does not drink11/18/2023Q3: How often do you have six or more drinks on one occasion?Never11/18/2023Overall Financial Resource Strain (CARDIA)AnswerDate RecordedHow hard is it for you to pay for the very basics like food, housing, medical care, and heating?Not very hard11/19/2023HQ-2AnswerDate RecordedPatient Health Questionnaire-2 Score0 12/29/2023RAPARE - TransportationAnswerDate RecordedIn the past 12 months, has lack of transportation kept you from medical appointments or from getting medications?No11/19/2023In the past 12 months, has lack of transportation kept you from meetings, work, or from getting things needed for daily living?No 11/19/2023Housing Stability Vital SignAnswerDate RecordedIn the last 12 months, was there a time when you were not able to pay the mortgage or rent on time?No 11/19/2023In the last 12 months, how many places have you lived?In the last 12 months, was there a time when you did not have a steady place to sleep or slept in ashelter (including now)?No11/19/2023CommentsUnknown Sex and Gender InformationValueDate RecordedSex Assigned at BirthNot on file Legal XvrQzexpq29/25/2022 4:17 PM ESTGender IdentityNot on fileSexual TgvcgypsnzvEfgaddhz31/21/2025 6:11 AM EDT Last Filed Vital Signs Vital SignReadingTime TakenCommentsBlood Wotggpgs216/6208 12:41 PM EDT Kxwxv962606/22/2025 12:41 PM KRKFocksrogyjl52.4 ??C (97.5 ??F)06/22/2025 12:41 PM EDTRespiratory Gcmj052106/22/2025 12:41 PM EDTOxygen Klvutbnxes10%06/22/2025 12:41 PM EDTInhaled Oxygen Concentration--Zcuikh98.5 kg (193 lb)06/22/2025 6:39 AM EDT Azzoam524.5 cm (5' 2 )06/22/2025 6:39 AM EDTBody Mass Index35.308 6:39 AM EDT Plan of Treatment Health MaintenanceDue DateLast DoneCommentsCT Mswnxprrrovp1957FIT-DNA (Cologuard)1957FIT1955 4738Mccwxlrtuthbg1957MMR Vaccines (1 of 1 - Standard series)1958COVID-19 Vaccine (#1)1962Hepatitis C Screening 1975Hepatitis A Vaccines (1 of 2 - Risk 2-dose series)1976Zoster Vaccines (1 of 2)1976DTaP/Tdap/Td Vaccines (1 - Tdap)1979Hepatitis B Vaccines (1 of 3 - Risk 3-dose series)2017Diabetes: Retinopathy Screening /Pneumococcal Vaccine (3 of 3 - PCV20 or PCV21)10/05/2022 10/05/2017, 07/16/20150742Zqycaafhb16/15/202312/, 10/16/2022, 04/06/2020 Diabetes: Hemoglobin A1C01/03/097000/12/2022Medicare Annual Wellness Visit (AWV) /, 11/22/2021, 11/23/2020, Additional history existsBone Density Scan5012/29/2022, 12/29/2022Influenza Vaccine (#1)2025 10/18/2024, 09/12/2019, 09/12/2019, Additional history existsDiabetes: Urine Protein Bobrqoslx91, 11/30/2023Lipid Panel Tczozhdkohc43, 05/01/2015Colorectal Cancer Jqgbdpyzr10/14/2028 Welcome to Medicare JastbVfdviivyvbev98/30/2023, 11/22/2021, 11/23/2020, Additional history existsRSV High Risk: (Elderly (60+) or Population) Gwkkqswyw60/17/2024HIB VaccinesAged OutNo longer eligible based on patient's age to complete this topicHPV VaccinesAged OutNo longer eligible based on patient's age to complete this topicIPV VaccinesAged OutNo longer eligible based on patient's age to complete this topicMeningococcal VaccineAged OutNo longer eligible based on patient's age to complete this topicRotavirus VaccinesAged Out No longer eligible based on patient's age to complete this topic Goals GoalPatient Goal TypeAssociated ProblemsRecent ProgressPatient-Stated?Author Autogenerated Goal Care PlanAutogenerated Rebecca Menon Procedures Procedure NamePriorityDate/TimeAssociated DiagnosisCommentsPOCT GLUCOSERoutine 06/22/2025 9:[address] GUIDED RF ABLATION IWUANXusompr39/21/2025 9:06 AM EDT Liver cell carcinoma (Multi) US GUIDED RF ABLATION PTDDSYepbseu92/21/2025 8:53 AM EDT Liver cell carcinoma (Multi) PULSE OXIMETRY, PVMKNGQYXVYqqpvvv48/21/2025 8:47 AM EDTPR AN ELECTIVE ENDOTRACHEAL VLLTSDCffwwgi81/21/2025 8:05 AM EDT POCT OXQMFLRBasqkvt48/21/2025 6:46 AM EDT BASIC METABOLIC KNTVWXHBW17/21/2025 6:33 AM EDT PROTIME-SPTGJEF1606/22/2025 6:33 AM EDT ITCIKSH4206/22/2025 6:33 AM EDT HEMOGLOBIN W0JGnzuwjn58/03/2023 2:49 AM EDT from Last 3 Months or Most Recently Relevant to Health Maintenance Results * POCT GLUCOSE (06/22/2025 9:58 AM EDT)ComponentValueRef RangeTest Method Analysis TimePerformed AtPathologist SignaturePOCT Ccwnsjm4222 - 99 mg/dL 06/22/2025 10:00 AM [facility]TST [facility] LABSpecimen (Source)Anatomical Location / LateralityCollection Method / VolumeCollection TimeReceived Time BloodCapillary blood specimen / Golqmtj0006/22/2025 9:58 AM EDT06/22/2025 10:00 AM EDT Narrative Authorizing ProviderResult TypeResult StatusInterface UnspecifiedproviderLAB POINT OF CARE TEST DOCKED DEVICE UNSOLICITED RESULTSFinal ResultPerforming OrganizationAddressCity/State/ZIP CodePhone Number [facility] [address] [phone] * CT guided RF ablation liver (06/22/2025 9:06 AM EDT)Anatomical Region LateralityModalityBody Angio, BodyComputed TomographySpecimen (Source) Anatomical Location / LateralityCollection Method / VolumeCollection Time Received Time06/22/2025 3:58 PM EDT06/22/2025 3:58 PM EDT Impressions 06/22/2025 3:[address] and ultrasound-guided microwave ablation of a segment 6 hepatocellular carcinoma as described above ? Signed by: Дмитрий Flores 06/22/2025 3:56 PM Dictation workstation: ?? [id number] Narrative 06/22/2025 3:56 PM EDT Interpreted By: Дмитрий Flores, STUDY: CT GUIDED RF ABLATION LIVER; US GUIDED RF ABLATION LIVER; 06/22/2025 9:06 am; 06/22/2025 8:53 am ?? INDICATION: Signs/Symptoms:HCC microwave ablation; Signs/Symptoms:microwave ablation for HCC. ?? COMPARISON: MR abdomen 04/17/2025 ?? ACCESSION NUMBER(S): [id number]; [id number] ?? ORDERING CLINICIAN: LÁZARO NICHOLAS ?? TECHNIQUE: ELEVATED WORK PLATFORM OPERATOR: Дмитрий Flores MD ?? CONSENT: The patient was informed of the nature of the proposed procedure. The purposes, alternatives, risks, and benefits were explained and discussed. All questions were answered and consent was obtained. ?? RADIATION EXPOSURE: Dose: Total exam DLP 305 mGy ?? SEDATION: General anesthesia ?? MEDICATION/CONTRAST: Ancef 2 g IV ?? TIME OUT: A time out was performed [...] specific safety precautions or equipment was reviewed. ?? COMPLICATIONS: None immediate ? FINDINGS: General anesthesia was induced and the patient was then positioned supine oblique on the CT scan table. An initial fisher weir CT was performed, demonstrating the 1.9 cm hypoattenuating lesion in segment 6 of the liver consistent with the known hepatocellular carcinoma. The skin was marked, prepped, and draped in a sterile fashion. ?? Next, the liver was evaluated sonographically, demonstrating a 1.9 x 1.8 cm hypoechoic lesion in segment 6 corresponding to the fisher weir CT scan and prior imaging. Under direct [...] needle was withdrawn. Sterile dressing was applied. ?? A final CT of the upper abdomen without contrast was obtained and showed no evidence of immediate complication. Residual gas coursing through the mid aspect of the known tumor consistent with a technically successful ablation. ?? Procedure Note Дмитрий Flores MD - 06/22/2025 Interpreted By: Дмитрий Flores, STUDY: CT GUIDED RF ABLATION LIVER; US GUIDED RF ABLATION LIVER; 06/22/2025 9:06 am; 06/22/2025 8:53 am INDICATION: Signs/Symptoms:HCC microwave ablation; Signs/Symptoms:microwave ablation for HCC. COMPARISON: MR abdomen 04/17/2025 ACCESSION NUMBER(S): [id number]; [id number] ORDERING CLINICIAN: LÁZARO NICHOLAS TECHNIQUE: ELEVATED WORK PLATFORM OPERATOR: Дмитрий Flores MD CONSENT: The patient was [...] on the CT scan table. An initial fisher weir CT was performed, demonstrating the 1.9 cm hypoattenuating lesion in segment 6 of the liver consistent with the known hepatocellular carcinoma. The skin was marked, prepped, and draped in a sterile fashion. Next, the liver was evaluated sonographically, demonstrating a 1.9 x 1.8 cm hypoechoic lesion in segment 6 corresponding to the fisher weir CT scan and prior imaging. Under direct [...] Дмитрий Flores 06/22/2025 3:56 PM Dictation workstation: [id number] Authorizing ProviderResult TypeResult StatusAlex Ching Nicholas ACTUARIAL TECHNICIAN-CNPIMG CT PROCEDURESFinal Result * US guided RF ablation liver (06/22/2025 8:53 AM EDT)Anatomical Region LateralityModalityBody Angio, LiverUltrasoundSpecimen (Source)Anatomical Location / LateralityCollection Method / VolumeCollection TimeReceived Time 06/22/2025 3:58 PM EDT06/22/2025 3:58 PM EDT Impressions 06/22/2025 3:[address] and ultrasound-guided microwave ablation of a segment 6 hepatocellular carcinoma as described above ? Signed by: Дмитрий Flores 06/22/2025 3:56 PM Dictation workstation: ?? [id number] Narrative 06/22/2025 3:56 PM EDT Interpreted By: Дмитрий Flores, STUDY: CT GUIDED RF ABLATION LIVER; US GUIDED RF ABLATION LIVER; 06/22/2025 9:06 am; 06/22/2025 8:53 am ?? INDICATION: Signs/Symptoms:HCC microwave ablation; Signs/Symptoms:microwave ablation for HCC. ?? COMPARISON: MR abdomen 04/17/2025 ?? ACCESSION NUMBER(S): [id number]; [id number] ?? ORDERING CLINICIAN: LÁZARO NICHOLAS ?? TECHNIQUE: ELEVATED WORK PLATFORM OPERATOR: Дмитрий Flores MD ?? CONSENT: The patient was informed of the nature of the proposed procedure. The purposes, alternatives, risks, and benefits were explained and discussed. All questions were answered and consent was obtained. ?? RADIATION EXPOSURE: Dose: Total exam DLP 305 mGy ?? SEDATION: General anesthesia ?? MEDICATION/CONTRAST: Ancef 2 g IV ?? TIME OUT: A time out was performed [...] specific safety precautions or equipment was reviewed. ?? COMPLICATIONS: None immediate ? FINDINGS: General anesthesia was induced and the patient was then positioned supine oblique on the CT scan table. An initial fisher weir CT was performed, demonstrating the 1.9 cm hypoattenuating lesion in segment 6 of the liver consistent with the known hepatocellular carcinoma. The skin was marked, prepped, and draped in a sterile fashion. ?? Next, the liver was evaluated sonographically, demonstrating a 1.9 x 1.8 cm hypoechoic lesion in segment 6 corresponding to the fisher weir CT scan and prior imaging. Under direct [...] needle was withdrawn. Sterile dressing was applied. ?? A final CT of the upper abdomen without contrast was obtained and showed no evidence of immediate complication. Residual gas coursing through the mid aspect of the known tumor consistent with a technically successful ablation. ?? Procedure Note Дмитрий Flores MD - 06/22/2025 Interpreted By: Дмитрий Flores, STUDY: CT GUIDED RF ABLATION LIVER; US GUIDED RF ABLATION LIVER; 06/22/2025 9:06 am; 06/22/2025 8:53 am INDICATION: Signs/Symptoms:HCC microwave ablation; Signs/Symptoms:microwave ablation for HCC. COMPARISON: MR abdomen 04/17/2025 ACCESSION NUMBER(S): [id number]; [id number] ORDERING CLINICIAN: LÁZARO NICHOLAS TECHNIQUE: ELEVATED WORK PLATFORM OPERATOR: Дмитрий Flores MD CONSENT: The patient was [...] on the CT scan table. An initial fisher weir CT was performed, demonstrating the 1.9 cm hypoattenuating lesion in segment 6 of the liver consistent with the known hepatocellular carcinoma. The skin was marked, prepped, and draped in a sterile fashion. Next, the liver was evaluated sonographically, demonstrating a 1.9 x 1.8 cm hypoechoic lesion in segment 6 corresponding to the fisher weir CT scan and prior imaging. Under direct [...] Дмитрий Flores 06/22/2025 3:56 PM Dictation workstation: [id number] Authorizing ProviderResult TypeResult StatusAlex Ching Nicholas ACTUARIAL TECHNICIAN-[facility] PROCEDURESFinal Result * CT AN ELECTIVE ENDOTRACHEAL AIRWAY (06/22/2025 8:05 AM EDT) João Weber CAA - 06/22/2025 8:05 AM EDT JEAN-PAUL Berry 06/22/2025 8:07 AM Airway Date/Time: 06/22/2025 8:05 AM Reason: elective Airway not difficult Staffing Performed: CAA Authorized by: Justus Rodriguez MD ?? Performed by: JEAN-PAUL Berry Patient location during [...] 1 Number of other approaches attempted: 0 Authorizing ProviderResult TypeResult StatusMark Elvin Rodriguez MDANESTHEALBA ORDERABLESFinal Result * POCT GLUCOSE (06/22/2025 6:46 AM EDT)ComponentValueRef RangeTest Method Analysis TimePerformed AtPathologist SignaturePOCT Fpdhdwb1132 - 99 mg/dL 06/22/2025 6:49 AM [facility] LABSpecimen (Source)Anatomical Location / LateralityCollection Method / VolumeCollection TimeReceived Time BloodCapillary blood specimen / Xhfujic8506/22/2025 6:46 AM EDT06/22/2025 6:49 AM EDT Narrative Authorizing ProviderResult TypeResult StatusInterface UnspecifiedproviderLAB POINT OF CARE TEST DOCKED DEVICE UNSOLICITED RESULTSFinal ResultPerforming OrganizationAddressCity/State/ZIP CodePhone Number [facility] [address] [place] [phone] * (ABNORMAL) Protime-INR (06/22/2025 6:33 AM EDT)ComponentValueRef RangeTest MethodAnalysis TimePerformed AtPathologist KabnwstyzEovchwb88.3(H)9.8 - 12.4 seconds LAB COAGULATION METHOD 06/22/2025 7:10 AM [facility] LABINR1.3(H)0.9 - 1.1 LAB COAGULATION METHOD 06/22/2025 7:10 AM [facility] LABSpecimen (Source)Anatomical Location / LateralityCollection Method / VolumeCollection TimeReceived TimeBlood Venous blood specimen / UnknownVenipuncture / Qbmebeu4606/22/2025 6:33 AM EDT 06/22/2025 6:43 AM EDT Narrative Authorizing ProviderResult TypeResult StatusДмитрий KIRKPATRICK BLOOD ORDERABLESFinal ResultPerforming OrganizationAddressCity/State/ZIP CodePhone Number [facility] [address] [place] [address] * (ABNORMAL) CBC (06/22/2025 6:33 AM EDT)ComponentValueRef RangeTest Method Analysis TimePerformed AtPathologist SignatureWBC1.6(L)4.4 - 11.3 x10*3/uL LAB HEMATOLOGY METHOD 06/22/2025 7:37 AM ED[facility] LABnRBC0.00.0 - 0.0 /100 WBCs LAB HEMATOLOGY METHOD 06/22/2025 7:37 AM [facility] LABRBC3.21(L)4.00 - 5.20 x10*6/uL LAB HEMATOLOGY METHOD 06/22/2025 7:37 AM [facility] QXZWphoittwjc85.5(L)12.0 - 16.0 g/dL LAB HEMATOLOGY METHOD 06/22/2025 7:37 AM [facility] ASLMcgiujmwar23.2(L)36.0 - 46.0 % LAB HEMATOLOGY METHOD 06/22/2025 7:37 AM [facility] ZYZJIJ33623 - 100 fL LAB HEMATOLOGY METHOD 06/22/2025 7:37 AM [facility] IQWUKJ81.726.0 - 34.0 pg LAB HEMATOLOGY METHOD 06/22/2025 7:37 AM [facility] GNTCRSD81.632.0 - 36.0 g/dL LAB HEMATOLOGY METHOD 06/22/2025 7:37 AM [facility] FJDWDC80.911.5 - 14.5 % LAB HEMATOLOGY METHOD 06/22/2025 7:37 AM [facility] NDJXfukljxng42(L)150 - 450 x10*3/uL LAB HEMATOLOGY METHOD 06/22/2025 7:37 AM [facility] LABComment:Platelet count verified by smear reviewSpecimen (Source)Anatomical Location / LateralityCollection Method / VolumeCollection TimeReceived TimeBloodVenous blood specimen / Unknown Venipuncture / Lprtcef8306/22/2025 6:33 AM EDT06/22/2025 6:43 AM EDT Narrative Authorizing ProviderResult TypeResult StatusWimatt KIRKPATRICK BLOOD ORDERABLESFinal ResultPerforming OrganizationAddressCity/State/ZIP CodePhone Number [facility] [address] [place] [address] * (ABNORMAL) Basic Metabolic Panel (06/22/2025 6:33 AM EDT)ComponentValueRef RangeTest MethodAnalysis TimePerformed AtPathologist EnbdcwdglAgbpdoz1657 - 99 mg/dL LAB CHEMISTRY METHOD 06/22/2025 7:03 AM [facility] SMMGtzxpa627711 - 145 mmol/L LAB CHEMISTRY METHOD 06/22/2025 7:03 AM [facility] LABPotassium4.03.5 - 5.3 mmol/L LAB CHEMISTRY METHOD 06/22/2025 7:03 AM [facility] ANQDxspxnqq75286 - 107 mmol/L LAB CHEMISTRY METHOD 06/22/2025 7:03 AM [facility] YQIJzwfxwxghpy4151 - 32 mmol/L LAB CHEMISTRY METHOD 06/22/2025 7:03 AM [facility] LABAnion Hoh1920 - 20 mmol/L LAB CHEMISTRY METHOD 06/22/2025 7:03 AM [facility] LABUrea Ajmyyhfw117 - 23 mg/dL LAB CHEMISTRY METHOD 06/22/2025 7:03 AM [facility] LABCreatinine0.930.50 - 1.05 mg/dL LAB CHEMISTRY METHOD 06/22/2025 7:03 AM [facility] OGKjOYY44>60 mL/min/1.73m*2 LAB CHEMISTRY METHOD 06/22/2025 7:03 AM [facility] LABComment: Calculations of estimated GFR are performed using the 2020 CKD-EPI Study Refit equation without therace variable for the IDMS-Traceable creatinine methods. https://jasn.asnjournals.org/content//ASN.9787526056 Calcium8.2(L)8.6 - 10.3 mg/dL LAB CHEMISTRY METHOD 06/22/2025 7:[facility] LABSpecimen (Source)Anatomical Location / LateralityCollection Method / VolumeCollection TimeReceived TimeBlood Venous blood specimen / UnknownVenipuncture / Tgjnpkt3206/22/2025 6:33 AM EDT 06/22/2025 6:43 AM EDT Narrative Authorizing ProviderResult TypeResult StatusДмитрий KIRKPATRICK BLOOD ORDERABLESFinal ResultPerforming OrganizationAddressCity/State/ZIP CodePhone Number [facility] [address] [place] [address] * Hemoglobin A1C (08/04/2023 2:49 AM EDT)ComponentValueRef RangeTest Method Analysis TimePerformed AtPathologist SignatureHemoglobin A1C4.9see below % 08/04/2023 4:08 AM [facility] LABEstimated Average Kjpwqza28Ldp Established mg/dL08/04/2023 4:08 AM [facility] LABSpecimen (Source)Anatomical Location / LateralityCollection Method / VolumeCollection TimeReceived TimeBloodVenous blood specimen / Xdnkyxy1608/04/2023 2:49 AM EDT1 3:18 AM EDT Narrative Authorizing ProviderResult TypeResult StatusKevin NOBLE-KEELEY BLOOD ORDERABLESFinal ResultPerforming OrganizationAddressCity/State/ZIP CodePhone Number [facility] [address] [facility] [address] [place] [address] from Last 3 Months or Most Recently Relevant to Health Maintenance Additional Health Concerns Active ProblemsNoted DateDiagnosed DateAutogenerated Eiordnx2105/01/2025 Insurance Advance Directives For more information, please contact: [phone] (Available ) * Full Code (Latest Code Status on File) Date ActivatedDate InactivatedComments11/18/2023 2:23 PMQuestionAnswerComments Plan of Care:* Code Status Discussion Completed Decision Maker:* Patient * Full Code Date ActivatedDate PgyziofcqfrUkcajtvo18/3/2023 12:24 AM08/13/2023 3:26 PM QuestionAnswerCommentsPlan of Care:* Code Status Discussion Completed Decision Maker:* Patient * Full Code Date ActivatedDate PalhtxxofeyCmiknppm25/3/2023 12:24 AM08/04/2023 12:24 AM QuestionAnswerCommentsPlan of Care:* Code Status Discussion Completed Decision Maker:* Patient Care Teams Team MemberRelationshipSpecialtyStart DateEnd Date Power Swain DO [address] [facility] [place] [address] [facility] - [facility]05/09/25 Supa Lindquist MD PhD [address] [id number] Consulting PhysicianHematology and Rbokbgcg39/2/23 Jessica Grove, tie man CoordinatorCase Hrnlkefagr88/3/23 Lisette Perkins, ACTUARIAL TECHNICIAN-INSURANCE UNDERWRITING ASSISTANT Nurse PractitionerHematology and Ofwumxyv33/13/23 Theresa Romano MD PhD [address] [id number] Consulting PhysicianHematology and Oncology11/18/23 Negro Epps MD PhD [address] [id number] Consulting PhysicianHematology and Oncology01/19/24
--- OUTSIDE RECORDS SUMMARY | 2025-08-27 18:09 | XMS_ITS ---
Author Organization [facility] Address [address] [place] [address] Phone Care Team Providers Care Communication Professor Name Role Phone Supa Lindquist MD PhD Unavailable [phone] Jessica Grove RN Unavailable Unavailable Lisette Perkins TRANSPORTATION JOB TITLES-LAY OUT CARPENTER Unavailable [phone] Theresa Romano MD PhD Unavailable [phone] Negro Epps MD PhD Unavailable [phone] Power Swain DO Primary Care Provider [phone] Active Problems ProblemNoted DateDiagnosed DateMultiple myeloma not having achieved remission 6733Fnuzxthizykf97/13/2023 Assessment & Plan (08/17/2023 7:42 AM EDT): Due to disease and chemotherapy Transfuse for Hgb < 7 g/dL and platelets < 10 k/uL or bleeding Assessment & Plan (08/14/2023 11:02 AM EDT): :: Due to disease and chemotherapy - Transfuse for Hgb < 7 g/dL and platelets < 10 k/uL or bleeding Uwwtdoabrdoq01/04/6125Qiaizgxjtcxxzi37/04/2023Type 2 diabetes vizecwho20/04/2023 Peripheral yythlzdhvp09/04/2023Multiple zaduijp9908/03/2023 Assessment & Plan (09/28/2023 6:52 PM EST): Referral from Dr. Marinelli at [facility]. MGUS since 2005 Followed at [facility] by Dr. 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 Also clonal evolution in the [...] Plan, so I will enter these outside Dlukcwyhes10/19/9692Sbunuslpvwxq88/19/9914Zupvwaagakaemejnbklbt67/19/2023 Immunodeficiency hiurvgmv81/06/2021 Assessment & Plan (02/14/2024 6:23 PM EDT): Infection prophylaxis VZV: Acyclovir 400 mg PO BID PJP: Trimethoprim-sulfamethoxazole 800-160 mg PO 3x weekly Hypogammaglobulinemia IVIG given 09/22/23, 10/29/23 ([facility]) 12/08/23 01/12/24 02/12/24. Cont monthly. Assessment & Plan (01/28/2024 12:26 PM EDT): Infection prophylaxis VZV: Acyclovir 400 mg PO BID PJP: Trimethoprim-sulfamethoxazole 800-160 mg PO 3x weekly Hypogammaglobulinemia IVIG given 09/22/23, 10/29/23 ([facility]) 12/08/23 and 01/12/24. Cont monthly. Assessment & Plan (01/14/2024 10:27 AM EDT): Infection prophylaxis VZV: Acyclovir 400 mg PO BID PJP: Trimethoprim-sulfamethoxazole 800-160 mg PO 3x weekly Hypogammaglobulinemia IVIG given 09/22/23, 10/29/23 ([facility]) and 12/08/23. Plan next today 01/12/24. Assessment & Plan (01/03/2024 11:33 AM EST): Infection prophylaxis VZV: Acyclovir 400 mg PO BID PJP: Trimethoprim-sulfamethoxazole 800-160 mg PO 3x weekly Hypogammaglobulinemia IVIG given 09/22/23, 10/29/23 ([facility]) and 12/08/23. Plan next dose 01/05/24. 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)07/11/2019 Primary localized osteoarthrosis of ankle and foot06/01/2019Chronic obstructive pulmonary kxbyhip6604/19/2019Smoldering gzwnrzg8604/19/2019Thoracic aortic aneurysm without fafigmd3504/15/2019GERD (gastroesophageal reflux disease)04/07/2018Morbid vatwbov0911/11/2017Familial gvttlicdrhfaikbqucqv70/12/2015Thrombocytopenia 05/31/2014Sleep apnea04/15/2006Monoclonal cfgmseryfqosoaf88/25/2006 Current Treatment and Therapy Plans Blood Products, [...] myeloma not having achieved remission (Multi) Treatment MedicationsCurrent Day (Day 1, Cycle 10 - Planned for 09/27/2024)Next Day (Day 21, Cycle 10 - Planned for 10/18/2024)* * teclistamab-cqyv (Tecvayli) * * teclistamab-cqyv (Tecvayli) subcutaneous solution 121.5 mg * * teclistamab-cqyv (Tecvayli) subcutaneous solution 121.5 mg Venous Access Orders* Plan Start Date:08/14/2023 Plan Provider:Supa Lindquist MD PhD Linked Problems Multiple myeloma, remission status unspecified (Multi) Treatment Medications No medications scheduled. Past Treatment and Therapy Plans Plan NameStart DateDiscontinue DateTreatment MedicationsDiscontinue ReasonPlan ProviderCyclesTeclistamab (Weekly), 28 Day Cycles/* teclistamab-cqyv (Tecvayli) Stable DiseaseSupa Lindquist MD PhD4 of 13 cycles startedTeclistamab (Weekly), 28 Day Polxgm91/* teclistamab-cqyv (Tecvayli) Change in Level of CareSupa Lindquist MD PhD2 of 3 cycles started Resolved Problems ProblemNoted DateDiagnosed DateResolved DateImmunosuppressed xgwevl4208/14/2023 11/27/2023 Assessment & Plan (11/18/2023 12:39 PM EST): Infection prophylaxis VZV: Continue acyclovir 400 mg PO BID PJP: Continue trimethoprim-sulfamethoxazole 800-160 mg PO 3x weekly Hypogammaglobulinemia IVIG given 09/22/23 and 10/29/23 ([facility]) Assessment & Plan (08/17/2023 7:42 AM EDT): - VZV: Continue acyclovir 400 mg PO BID - PJP: Continue trimethoprim-sulfamethoxazole 800-160 mg PO 3x weekly Assessment & Plan (08/14/2023 10:20 AM EDT): - VZV: Continue acyclovir 400 mg PO BID - PJP: Continue trimethoprim-sulfamethoxazole 800-160 mg PO 3x weekly Multiple myeloma, remission status adyugcaivzv51Obesity, Class III, BMI 40-49.9 (morbid obesity)typical chest pain Vitamin D bbtaqjecyw81
--- OUTSIDE RECORDS SUMMARY | 2025-08-27 18:10 | XMS_ITS | Encounter Summary ---
Author Organization [facility] Address [address] [place] [address] Care Team Providers Care Dry Pan Feeder Name Role Phone Vitaliy Thomson MD Unavailable [phone] Sima Paul RN Unavailable [phone] Power Swain DO Primary Care Provider [phone] Encounter Details DateTypeDepartmentCare Team (Latest Contact Info)Exruwbhidqo58/22/2025Results Follow-Up [facility] [address], [address] [place] [address] Power Swain DO [address] [facility] [address] [place] [address] POCT rapid strep A manually resulted, PNEUMONIA (HTRX) Social History Tobacco UseTypesPacks/DayYears UsedDateSmoking Tobacco: FormerCigarettes [...] on one occasion?Never06/15/2025PHQ-2AnswerDate Recorded Patient Health Questionnaire-2 Waokg325CommentsNoSex and Gender InformationValueDate RecordedSex Assigned at BirthNot on fileLegal SexFemale 01/14/2023 6:38 PM EDTGender IdentityNot on fileSexual OrientationNot on file OccupationIndustryJob Start DateJob End DateRetiredNot on fileNot on fileNot on filedocumented as of this encounter Plan of Treatment DateTypeDepartmentCare Team (Latest Contact Info)Twqozcaoieh43/10/2025 10:00 AM ESTOffice Visit NOMS [place] [facility] [address], [address] [place] [address] Power Swain DO [address] [place] [address] documented as of this encounter Visit Diagnoses Diagnosis Pseudomonas infection- Primary documented in this encounter Additional Health Concerns AssessmentNoted TimePHQ-9 Depression Total Score: 9:00 AM EST documented as of this encounter Care Teams Team MemberRelationshipSpecialtyStart DateEnd Date Vitaliy Thomson MD [address] [place] [address] PCP - ACO Reach03/26/23 Power Swain DO [address] [facility] [address] PCP - GeneralFamily Medicine04/25/25 Sima Paul, LES [address] [place] [address] Registered NurseFamily Mjhzizcg68/23/23documented as of this encounter
--- OUTSIDE RECORDS SUMMARY | 2025-08-27 18:10 | XMS_ITS | Encounter Summary ---
Author Organization [facility] Address [address] [place] [address] Care Team Providers Care Plaster Molder Name Role Phone Vitaliy Thomson MD Unavailable [phone] Sima Paul RN Unavailable [phone] Power Swain DO Primary Care Provider [phone] Encounter Details DateTypeDepartmentCare Team (Latest Contact Info)Obxhsfuqpfn93/17/2025bstract [facility] [address] [facility] [place] [address] Power Swain DO [address] [facility] [address] [place] [address] Social History Tobacco UseTypesPacks/DayYears UsedDateSmoking Tobacco: FormerCigarettes [...] on one occasion?Never06/15/2025PHQ-2AnswerDate Recorded Patient Health Questionnaire-2 Vjkap304CommentsNoSex and Gender InformationValueDate RecordedSex Assigned at BirthNot on fileLegal SexFemale 01/14/2023 6:38 PM EDTGender IdentityNot on fileSexual OrientationNot on file OccupationIndustryJob Start DateJob End DateRetiredNot on fileNot on fileNot on filedocumented as of this encounter Plan of Treatment DateTypeDepartmentCare Team (Latest Contact Info)Vuidbwyzoss67/10/2025 10:00 AM ESTOffice Visit [facility] [place] [facility] [address], [address] [place] [address] Power Swain DO [address] [place] [address] documented as of this encounter Visit Diagnoses Not on filedocumented in this encounter Additional Health Concerns AssessmentNoted TimePHQ-9 Depression Total Score: 9:00 AM EST documented as of this encounter Care Teams Team MemberRelationshipSpecialtyStart DateEnd Date Vitaliy Thomson MD [address] [place] [address] PCP - ACO Reach03/26/23 Power Swain DO [address] [place] [address] PCP - GeneralFamily Medicine04/25/25 Sima Paul, [place]ES [address] [place] [address] Registered NurseFamily Rnvedhqq10/23/23documented as of this encounter
--- OUTSIDE RECORDS SUMMARY | 2025-08-27 18:10 | XMS_ITS | Encounter Summary ---
Author Organization [facility] Address [address] [place] [address] Care Team Providers Care Mobile Mechanic Name Role Phone Vitaliy Thomson MD Unavailable [phone] Sima Paul RN Unavailable [phone] Power Swain DO Primary Care Provider [phone] Encounter Details DateTypeDepartmentCare Team (Latest Contact Info)Xrvcvdmvanf07/15/2025External Result Encounter [facility] External Department Unsolicited Fabiola Marinelli MD [address] [place] [address] Social History Tobacco UseTypesPacks/DayYears UsedDateSmoking Tobacco: FormerCigarettes [...] on one occasion?Never06/15/2025PHQ-2AnswerDate Recorded Patient Health Questionnaire-2 Rhlta859CommentsNoSex and Gender InformationValueDate RecordedSex Assigned at BirthNot on fileLegal SexFemale 01/14/2023 6:38 PM EDTGender IdentityNot on fileSexual OrientationNot on file OccupationIndustryJob Start DateJob End DateRetiredNot on fileNot on fileNot on filedocumented as of this encounter Plan of Treatment DateTypeDepartmentCare Team (Latest Contact Info)Yttdbxxgufk00/10/2025 10:00 AM ESTOffice Visit [facility] [address], [address] [place] [address] Power Swain, DO [address] [place] [address] NameTypePriorityAssociated DiagnosesDate/TimeCBC auto differentialLabSTAT 08/16/2025 8:14 AM EDTdocumented as of this encounter Procedures Procedure NamePriorityDate/TimeAssociated DiagnosisCommentsSCAN AND CBCSTAT 08/16/2025 8:14 AM EDT documented in this encounter Results * (ABNORMAL) SCAN AND CBC (08/16/2025 8:14 AM EDT)ComponentValueRef RangeTest MethodAnalysis TimePerformed AtPathologist SignatureWBC1.8(L)3.8 - 11.6 [CFU]/mL08/16/2025 8:[address] [facility] CtrUNCORRECTED WHITE BLOOD COUNT1.8(L)3.8 - 11.6 10*3/uL08/16/2025 8:[address] [facility] CtrRBC3.45(L)3.60 - 5.00 10*6/uL08/16/2025 8:[address] [facility] HkwPUAVVUJIYG03.2(L)11.8 - 15.4 g/dL08/16/2025 8:40 AM EDT [facility] YgbKXVKDJBMFC81.6(L)34.0 - 46.4 %08/16/2025 8:[address] [facility] GblAMW64.480 - 100 fL08/16/2025 8:40 AM EDT [facility] VswRBG61.424.7 - 34.3 pg08/16/2025 8:40 AM [facility] OfvDGVV91.432.0 - 35.0 g/dL08/16/2025 8:40 AM [facility] CtrRED CELL DISTRIBUTION WIDTH, RDW15.311.9 - 15.3 %08/16/2025 8:[address] [facility] CtrPLATELET COUNT44(L)150 - 450 10*3/uL08/16/2025 8:[address] [facility] CtrMEAN PLATELET VOLUME, MPV7.96.3 - 10.7 fL08/16/2025 8:[address] [facility] CtrNEUTROPHILS, %36.0. %08/16/2025 9:[address] [facility] LYMPHOCYTES, %16.6. %08/16/2025 9:[address] [facility] MONOCYTE/MACROPHAGE, %13.4. %08/16/2025 9:[address] [facility] CtrEOSINOPHILS, %33.6. %08/16/2025 9:[address] [facility] BASOPHILS, %0.4. %08/16/2025 9:[address] [facility] CtrNRBC0.00 - 0.5 /100{WBC}08/16/2025 9:[address] [facility] NEUTROPHILS0.7(L)1.8 - 7.7 10*3/uL08/16/2025 9:[address] [facility] CtrLYMPHOCYTES0.3(L)1.00 - 4.8 10*3/uL08/16/2025 9:[address] [facility] CtrMONOCYTES0.20.0 - 0.8 10*3/uL08/16/2025 9:03 AM [facility] CtrEOSINOPHILS0.6(H)0.0 - 0.45 10*3/uL08/16/2025 9:[address] [facility] CtrBASOPHILS0.00.0 - 0.2 10*3/uL 08/16/2025 9:[address] [facility] RgdQRXSNOBGXLSjmqar70/15/2025 9:[address] [facility] CtrPLATELET ESTIMATEDecreasedNormal 08/16/2025 9:[address] [facility] CtrPLATELET MORPHOLOGYNormal Pmomrx1008/16/2025 9:[address] [facility] CtrSpecimen (Source) Anatomical Location / LateralityCollection Method / VolumeCollection Time Received TimeBlood (Blood)08/16/2025 8:14 AM EDT1 8:18 AM EDT Narrative Authorizing ProviderResult TypeResult StatusFabiola Marinelli MDLAB BLOOD ORDERABLES Final ResultPerforming OrganizationAddressCity/State/ZIP CodePhone Number [facility] [address] [place] [address], [facility] [address] [facility] [place] [address] documented in this encounter Visit Diagnoses Not on filedocumented in this encounter Additional Health Concerns AssessmentNoted TimePHQ-9 Depression Total Score: 9:00 AM EST documented as of this encounter Care Teams Team MemberRelationshipSpecialtyStart DateEnd Date Vitaliy Thomson MD [address] [place] [address] PCP - ACO Reach03/26/23 Power Swain DO [address] [place] [address] [place] [address] PCP - GeneralFamily Medicine04/25/25 Sima Paul, [place]ES [address] [place] [address] Registered NurseFamily Ibbaniqj28/23/23documented as of this encounter
--- OUTSIDE RECORDS SUMMARY | 2025-08-27 18:10 | XMS_ITS | Encounter Summary ---
Author Organization [facility] Address [address] [place] [address] Care Team Providers Care Office Service Coordinator Name Role Phone Vitaliy Thomson MD Unavailable [phone] Sima Paul RN Unavailable [phone] Power Swain DO Primary Care Provider [phone] Encounter Details DateTypeDepartmentCare Team (Latest Contact Info)Ihtmtfleihl39/13/2025bstract [facility] [address] [facility] [place] [address] Power Swain DO [address] [facility] [address] [place] [address] Social History Tobacco UseTypesPacks/DayYears UsedDateSmoking Tobacco: FormerCigarettes [...] on one occasion?Never06/15/2025PHQ-2AnswerDate Recorded Patient Health Questionnaire-2 Qchqa240CommentsNoSex and Gender InformationValueDate RecordedSex Assigned at BirthNot on fileLegal SexFemale 01/14/2023 6:38 PM EDTGender IdentityNot on fileSexual OrientationNot on file OccupationIndustryJob Start DateJob End DateRetiredNot on fileNot on fileNot on filedocumented as of this encounter Plan of Treatment DateTypeDepartmentCare Team (Latest Contact Info)Ueorsancgcr28/10/2025 10:00 AM ESTOffice Visit [facility] [place] [facility] [address], [facility] [address] [place] [address] Power Swain DO [address] [facility] [address] [place] [address] documented as of this encounter Visit Diagnoses Not on filedocumented in this encounter Additional Health Concerns AssessmentNoted TimePHQ-9 Depression Total Score: 9:00 AM EST documented as of this encounter Care Teams Team MemberRelationshipSpecialtyStart DateEnd Date Vitaliy Thomson MD [address] [place] [address] PCP - ACO Reach03/26/23 Power Swain DO [address] [facility] [address] [place] [address] PCP - GeneralFamily Medicine04/25/25 Sima Paul, [place] [address] [place] [address] Registered NurseFamily Jslhbrzr95/23/23documented as of this encounter
--- OUTSIDE RECORDS SUMMARY | 2025-08-27 18:10 | XMS_ITS | Encounter Summary ---
Author Organization [facility] Address [address] [place] [address] Care Team Providers Care Food Service Director Name Role Phone Vitaliy Thomson MD Unavailable [phone] Sima Paul RN Unavailable [phone] Power Swain DO Primary Care Provider [phone] Encounter Details DateTypeDepartmentCare Team (Latest Contact Info)Qasufeuzzng19/15/2025External Result Encounter [facility] External Department Unsolicited Fabiola Marinelli MD [address] [place] [address] Social History Tobacco UseTypesPacks/DayYears UsedDateSmoking [...] on one occasion?Never06/15/2025PHQ-2AnswerDate Recorded Patient Health Questionnaire-2 Bnheq537CommentsNoSex and Gender InformationValueDate RecordedSex Assigned at BirthNot on fileLegal SexFemale 01/14/2023 6:38 PM EDTGender IdentityNot on fileSexual OrientationNot on file OccupationIndustryJob Start DateJob End DateRetiredNot on fileNot on fileNot on filedocumented as of this encounter Plan of Treatment DateTypeDepartmentCare Team (Latest Contact Info)Wcldvqvhnxf63/10/2025 10:00 AM ESTOffice Visit DAOMeg [place] [facility] [address], [address] [place] [address] Power Swain, [address] [place] [address] documented as of this encounter Procedures Procedure NamePriorityDate/TimeAssociated DiagnosisCommentsMAGNESIUMSTAT 08/16/2025 10:32 AM EDT documented in this encounter Results * (ABNORMAL) Magnesium (08/16/2025 10:32 AM EDT)ComponentValueRef RangeTest MethodAnalysis TimePerformed AtPathologist SignatureMAGNESIUM1.7(L)1.9 - 2.7 mg/dL08/16/2025 11:04 AM EDTFCorey Hospital CtrSpecimen (Source) Anatomical Location / LateralityCollection Method / VolumeCollection Time Received TimeOtherTopography unknown / Iudwonc0608/16/2025 10:32 AM EDT 08/16/2025 10:32 AM EDT Narrative Authorizing ProviderResult TypeResult StatusFabiola Marinelli MDLAB BLOOD ORDERABLES Final ResultPerforming OrganizationAddressCity/State/ZIP CodePhone Number [facility] [address] [facility] [place] [address], [facility] [address] [facility] [place] [address] documented in this encounter Visit Diagnoses Not on filedocumented in this encounter Additional Health Concerns AssessmentNoted TimePHQ-9 Depression Total Score: 9:00 AM EST documented as of this encounter Care Teams Team MemberRelationshipSpecialtyStart DateEnd Date Vitaliy Thomson MD [address] [place] [address] PCP - ACO [facility]03/26/23 Power Swain DO [address] [address] PCP - GeneralFamily Medicine04/25/25 Sima Paul RN [address] [place] [address] Registered NurseFamily Qtqnnzjb62/23/23documented as of this encounter
--- OUTSIDE RECORDS SUMMARY | 2025-08-27 18:10 | XMS_ITS | Encounter Summary ---
Author Organization [facility] Address [address] [place] [address] Care Team Providers Care Registered Radiologic Technologist Name Role Phone Vitaliy Thomson MD Unavailable [phone] Sima Paul RN Unavailable [phone] Power Swain DO Primary Care Provider [phone] Encounter Details DateTypeDepartmentCare Team (Latest Contact Info)Wvqnjsqrcpe21/23/2025Telephone [facility] [address], [facility] [address] [place] [phone] Power Swain DO [address] [facility] [address] [place] [address] Social History Tobacco UseTypesPacks/DayYears UsedDateSmoking Tobacco: FormerCigarettes [...] on one occasion?Never06/15/2025PHQ-2AnswerDate Recorded Patient Health Questionnaire-2 [id number] and Gender InformationValueDate RecordedSex Assigned at BirthNot on fileLegal SexFemale 01/14/2023 6:38 PM EDTGender IdentityNot on fileSexual OrientationNot on file OccupationIndustryJob Start DateJob End DateRetiredNot on fileNot on fileNot on filedocumented as of this encounter Miscellaneous Notes * Telephone Encounter - Yeni Swain - 08/24/2025 8:36 AM EDT Patient called in a had some questions about visit she was seen for in office this week... with results from lab and whether it is contagious.. patient would like a call to discuss at your earliest convenience. documented in this encounter Plan of Treatment DateTypeDepartmentCare Team (Latest Contact Info)Ehziaxjwodc44/10/2025 10:00 AM ESTOffice Visit [facility] [place] [facility] [address], [place] [address] [place] [phone] Power Swain DO [address] [facility] [address] [place] [address] documented as of this encounter Visit Diagnoses Not on filedocumented in this encounter Additional Health Concerns AssessmentNoted TimePHQ-9 Depression Total Score: 9:00 AM EST documented as of this encounter Care Teams Team MemberRelationshipSpecialtyStart DateEnd Date Vitaliy Thomson MD [address] [place] [address] PCP - [facility]CO [facility]03/26/23 Power Swain DO [address] [facility] [address] [place] [address] PCP - GeneralFamily Medicine04/25/25 Sima Paul RN [address] [place] [address] Registered NurseFamily Lfmimlqr14/23/23documented as of this encounter
--- OUTSIDE RECORDS SUMMARY | 2025-08-27 18:10 | XMS_ITS | Encounter Summary ---
Author Organization [facility] Address [address] [place] [address] Care Team Providers Care Data Entry Supervisor Name Role Phone Vitaliy Thomson MD Unavailable [phone] Sima Paul RN Unavailable [phone] Power Swain DO Primary Care Provider [phone] Encounter Details DateTypeDepartmentCare Team (Latest Contact Info)Bvrvjlvguuv69/20/2025Telephone [facility] 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 Can you please call and schedule her please documented in this encounter Miscellaneous Notes * Telephone Encounter - Power Swain DO - 08/21/2025 7:39 PM EDT I got a message from staff about her being more aggressive and wanting a urine and culture. So yeahif we can get her in that would be ideal to see what is going on * Telephone Encounter - Polina Ferrari MA - 08/21/2025 4:56 PM EDT Patient states she has had a cold for a few days now and it is travelling down to her chest. Wondering if a script of antibiotics can be called into her pharmacy. She LVM so I did not get to speak with her personally. Do you want me to schedule her to come in? documented in this encounter Plan of Treatment DateTypeDepartmentCare Team (Latest Contact Info)Spwiveaeuwj04/10/2025 10:00 AM ESTOffice Visit [facility] [place] [facility] [address], [address] [place] [phone] Power Swain DO [address] [address] [place] [address] documented as of this encounter Visit Diagnoses Not on filedocumented in this encounter Additional Health Concerns AssessmentNoted TimePHQ-9 Depression Total Score: 001/ 9:00 AM EST documented as of this encounter Care Teams Team MemberRelationshipSpecialtyStart DateEnd Date Vitaliy Thomson MD [address] [place] [address] PCP - [facility]CO [facility]03/26/23 Power Swain DO [address] [address] PCP - GeneralFamily Medicine04/25/25 Sima Paul RN [address] [place] [address] Registered NurseFamily Ysrscbwy85/23/23documented as of this encounter
--- OUTSIDE RECORDS SUMMARY | 2025-08-27 18:10 | XMS_ITS | Encounter Summary ---
Author Organization [facility] Address [address] [place] [address] Care Team Providers Care Recreation Therapy Aides Teacher Name Role Phone Vitaliy Thomson MD Unavailable [phone] Sima Paul RN Unavailable [phone] Power Swain DO Primary Care Provider [phone] Encounter Details DateTypeDepartmentCare Team (Latest Contact Info)Ftxxgbkppud32/15/2025External Result Encounter [facility] Unsolicited Fabiola Marinelli MD [address] [place] [address] Social History Tobacco UseTypesPacks/DayYears UsedDateSmoking [...] on one occasion?Never06/15/2025PHQ-2AnswerDate Recorded Patient Health Questionnaire-2 [id number] and Gender InformationValueDate RecordedSex Assigned at BirthNot on fileLegal SexFemale 01/14/2023 6:38 PM EDTGender IdentityNot on fileSexual OrientationNot on file 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, [address] [place] [address] Power Swain, DO [address] [address] [place] [address] documented as of this encounter Procedures Procedure NamePriorityDate/TimeAssociated DiagnosisCommentsIRON AND TOTAL IRON BINDING FDJLUKCZEEEH31/15/2025 8:14 AM EDT UDQIMDBTXUNN86/15/2025 8:14 AM EDT COMPREHENSIVE METABOLIC PKXKNZRGQ98/15/2025 8:14 AM EDT documented in this encounter Results * Ferritin (08/16/2025 8:14 AM EDT)ComponentValueRef RangeTest MethodAnalysis TimePerformed AtPathologist LulwklovoVHGNZEZW346.111.0 - 306.8 ng/mL08/16/2025 9:07 AM ED[facility] CtrSpecimen (Source)Anatomical Location / LateralityCollection Method / VolumeCollection TimeReceived TimeOther Topography unknown / Rtlxnwv9608/16/2025 8:14 AM EDT1 8:18 AM EDT Narrative Authorizing ProviderResult TypeResult StatusFabiola Marinelli MDLAB BLOOD ORDERABLES Final ResultPerforming OrganizationAddressCity/State/ZIP CodePhone Number [facility] [address] [place] [address], [facility] [address] [place] [address] * Iron and TIBC (08/16/2025 8:14 AM EDT)ComponentValueRef RangeTest Method Analysis TimePerformed AtPathologist AghrifbnsXGLN8592 - 212 ug/dL08/16/2025 8:48 AM [facility] CtrTOTAL IRON BINDING [id number] - 450 ug/dL08/16/2025 8:48 AM [facility] Ctr% IRON SATURATION 23.920 - 50 %08/16/2025 8:48 AM [facility] CtrTRANSFERRIN 775026 - 362 mg/dL08/16/2025 8:48 AM [facility] CtrSpecimen (Source)Anatomical Location / LateralityCollection Method / VolumeCollection TimeReceived TimeOtherTopography unknown / Rjjoiuz9008/16/2025 8:14 AM EDT 08/16/2025 8:18 AM EDT Narrative Authorizing ProviderResult TypeResult StatusFabiola Marinelli MDLAB BLOOD ORDERABLES Final ResultPerforming OrganizationAddressCity/State/ZIP CodePhone Number [facility] [address] [place] [address], [facility] [address] [place] [address] * (ABNORMAL) Comprehensive metabolic panel (08/16/2025 8:14 AM EDT)Component ValueRef RangeTest MethodAnalysis TimePerformed AtPathologist SignatureGlucose 109(H)70 - 100 mg/dL08/16/2025 8:48 AM [facility] Comment: Random Glucose Reference Range is dependent on time and content of last meal. Glucose of more than 200 mg/dL in a nonstressed, ambulatory subject supports the diagnosis of Diabetes Mellitus. ADA recommended reference range TLN608 - 25 mg/dL08/16/2025 8:48 AM [facility] CtrCREATININE 0.990.60 - 1.20 mg/dL08/16/2025 8:48 AM [facility] ESTIMATED GFR>60. 8:48 AM [facility] NlySeesxx471 136 - 145 mmol/L1 8:48 AM [facility] CtrPotassium, Bld4.13.5 - 5.1 mmol/L1 8:48 AM [facility] Ctr Efngaxps64711 - 107 mmol/L1 8:48 AM [facility] Ctr Carbon Esquthg13.521.0 - 31.0 mmol/L1 8:48 AM [facility] CtrAnion Gap8.66.0 - 15.010 8:48 AM [facility] CtrCalcium9.08.6 - 10.3 mg/dL08/16/2025 8:48 AM [facility] CtrTOTAL PROTEIN5.5(L)6.4 - 8.9 g/dL08/16/2025 8:48 AM [facility] CtrALBUMIN LEVEL3.63.5 - 5.7 g/dL08/16/2025 8:48 AM [facility] CtrGLOBULIN1.9g/dL08/16/2025 8:48 AM [facility] CtrALBUMIN/GLOBULIN RATIO1.91 8:48 AM [facility] CtrBILIRUBIN,TOTAL0.90.3 - 1.0 mg/dL08/16/2025 8:48 AM [facility] CtrASPARTATE AMINO VESGOTXJHUQ5773 - 39 U/L1 8:48 AM [facility] CtrALANINE ZDNIYMLMCFEHISPQ658 - 52 U/L 08/16/2025 8:48 AM [facility] CtrALKALINE TESBQIUOIQA7144 - 104 U/L1 8:48 AM [facility] CtrCREATININE CLR CALC TZCKYVVL18.181 8:48 AM [facility] CtrSpecimen (Source)Anatomical Location / LateralityCollection Method / VolumeCollection TimeReceived TimeOtherTopography unknown / Sjjeirl8408/16/2025 8:14 AM EDT 08/16/2025 8:18 AM EDT Narrative Authorizing ProviderResult TypeResult StatusFabiola Marinelli MDLAB BLOOD ORDERABLES Final ResultPerforming OrganizationAddressCity/State/ZIP CodePhone Number [facility] [address] [place] [address], [facility] [address] [place] [address] documented in this encounter Visit Diagnoses Not on filedocumented in this encounter Additional Health Concerns AssessmentNoted TimePHQ-9 Depression Total Score: 9:00 AM EST documented as of this encounter Care Teams Team MemberRelationshipSpecialtyStart DateEnd Date Vitaliy Thomson MD [address] [place] [address] PCP - [facility]CO [facility]03/26/23 Power Swain DO [address] [place] [address] [place], [place] [address] [address] PCP - GeneralFamily Medicine04/25/25 Sima Paul, LES [address] [place] [address] Registered NurseFamily Luzoeapn32/23/23documented as of this encounter
--- OUTSIDE RECORDS SUMMARY | 2025-08-27 18:19 | XMS_ITS | CCD ---
Author Organization [facility] Care Team Providers Care Operator Cavity Pump Name Role Phone MD Yinka Lopez Primary Care Provider MD Fabiola Marinelli Attending Provider MD Fabiola Marinelli Referring Provider MD Yinka Lopez Primary Care Provider [phone] MD Fabiola Marinelli Attending Provider MD Faboila Marinelli Referring Provider KEITH Lima Attending Provider MD Yinka Lopez Primary Care Provider [phone] KEITH Lima Attending Provider MD Fabiola Marinelli Attending Provider [phone] MD Fabiola Marinelli Referring Provider MD Yinka Lopez Primary Care Provider KEITH Lima Attending Provider MD Fabiola Marinelli Attending Provider MD Fabiola Marinelli Referring Provider MD Fabiola Marinelli Attending Provider MD Fabiola Marinelli Referring Provider Yinka Lopez MD Primary Care Provider Barbara Lima A Unavailable MD Fabiola Marinelli Attending Provider MD Fabiola Marinelli Referring Provider BARBARA LIMA Admitting Unavailable KIEPERT, BARBARA Attending Unavailable KIEPERT, BARBARA Primary Care Unavailable WEST, DR PHYLLIS Webber Consulting Unavailable ELSIE, BARBARA Consulting Unavailable MISC, DR BRANDT Admitting Unavailable MISC, DR BRANDT Attending Unavailable MISC, DR BRANDT Primary Care Unavailable MISC, DR BRANDT Consulting Unavailable ZIEBER, DR RISA Rangel Consulting Unavailable MD Yinka Lopez Primary Care Provider KEITH Lima Attending Provider MD Fabiola Marinelli Attending Provider MD Fabiola Marinelli Referring Provider [phone] MD Yinka Lopez Primary Care Provider MD Fabiola Marinelli Attending Provider MD Fabiola Marinelli Referring Provider MD Fabiola Marinelli Referring Provider [phone] MD Yinka Lopez Primary Care Provider MD Fabiola Marinelli Attending Provider MD Fabiola Marinelli Referring Provider Deepali, GLASS CUT OFF SUPERVISOR-C Fabiola Attending Provider Deepali, PAMELLA-C Fabiola Attending Provider [phone] MD Fabiola Marinelli Referring Provider MD Yinka Lopez Primary Care Provider MD Fabiola Marinelli Attending Provider Deepali, GLASS CUT OFF SUPERVISOR-C Fabiola Attending Provider MD Fabiola Marinelli Referring Provider MD Stefani Escobar Jr Emergency Provider DO Sherif Ravi Admit Provider DO Sherif Ravi Attending Provider DO Vicente Linton Attending Provider Katie Holder Unavailable MD Yinka Lopez Primary Care Provider MD Fabiola Marinelli Other Provider MD Fabiola Marinelli Attending Provider MD Yinka Lopez Primary Care Provider [phone] MARI Palumbo Attending Provider MD Stefani Escobar Jr Emergency Provider DO Sherif Ravi Admit Provider DO Vicente Linton Attending Provider MD Fabiola Marinelli Other Provider MD Fabiola Marinelli Attending Provider MD Yinka Lopez Primary Care Provider [phone] MD Fabiola Marinelli Attending Provider MD Fabiola Marinelli Referring Provider MD Yinka Lopez Primary Care Provider [phone] MD Fabiola Marinelli Attending Provider MD Fabiola Marinelli Referring Provider MD Yinka Lopez Primary Care Provider MD Fabiola Marinelli Attending Provider MD Fabiola Marinelli Referring Provider DO Marlon Alba Emergency Provider [phone] Dr. Yinka Lopez Primary Care Unavailab le Berto, Dr. Yinka Brown Primary Care Unavailab Dr. Marcus Hernandez Attending Unavailabl e Supa Lindquist Admitting Unavailable Supa Lindquist Attending Unavailable Berto, Dr. Yinka Brown Primary Care Unavailab le Berto, Dr. Yinka Brown Primary Care Unavailab Supa Palmer Admitting Unavailable Supa Lindquist Attending Unavailable Berto, Dr. Yinka Brown Primary Care Unavailab Supa Palmer Attending Unavailable Berto, Dr. Yinka Brown Primary Care Unavailab le Piter Benavidez Admitting Unavailable Piter Benavidez Attending Unavailable Yinka Lopez MD Primary Care Provider Azar Harris MD PhD, Supa Unavailable [place] SALDANA, Jessica Unavailable Unavailable Vera JASSO, Sarath Hayden Unavailable Berto JASSO, Yinka Brown Primary Care Provider [phone] Azar Harris MD PhD, Supa Unavailable [place] SALDANA, Jessica Unavailable Unavailable Vera JASSO, Sarath Hayden Unavailable Berto JASSO, Yinka Brown Primary Care Provider Fabiola Marinelli MD Primary Care Provider MD Yinka Lopez Primary Care Provider MD Fabiola Marinelli Attending Provider MD Fabiola Marinelli Referring Provider DO Marlon Alba Emergency Provider [phone] DO Juan Rivera Emergency Provider [place] SALDANA, Jessica Unavailable Unavailable [facility] Lisette Catracho Unavailable MD Yinka Lopez Primary Care Provider DO Juan Rivera Emergency Provider MD Fabiola Marinelli Attending Provider MD Fabiola Marinelli Referring Provider MD Yinka Lopez Primary Care Provider MD Fabiola Marinelli Attending Provider MD Fabiola Marinelli Referring Provider MARI Palumbo Attending Provider Juan Antonio JASSO PhD, Theresa Unavailable [phone] MD Yinka Lopez Primary Care Provider KEITH Gaytan Emergency Provider MD Yinka Lopez Primary Care Provider MARI Palumbo Attending Provider KEITH Gaytan Emergency Provider MD Fabiola Marinelli Attending Provider MD Fabiola Marinelli Referring Provider [phone] MD Fabiola Marinelli Attending Provider MD Fabiola Marinelli Referring Provider Mich JASSO PhD, [facility] Unavailable MD Berto Yinka Primary Care Provider MARI Palumbo Attending Provider MD Fabiola Marinelli Attending Provider MD Fabiola Marinelli Referring Provider MARI Perkins Attending Provider MD Yinka Lopez Primary Care Provider MD Fabiola Marinelli Attending Provider MD Fabiola Marinelli Referring Provider [phone] MD Berto [facility] Primary Care Provider [phone] MARI Perkins Attending Provider MD Fabiola Marinelli Attending Provider MD Fabiola Marinelli Referring Provider MD Ez Delgado Emergency Provider DO Vicente Linton Admit Provider [phone] DO Vicente Linton Attending Provider Yinka Lopez MD Leilani Primary Care Provider Barbara Lima APRN Unavailable MD Timur Valadez Other Provider MD Real Blancas Other Provider [phone] KEITH De La Cruz Other Provider MD Stephanie Hardy Other Provider DO Garcia Sanchez Other Provider MD Lakeisha Miller Other Provider MD Hortensia Clinton Attending Provider MD Ez Delgado Emergency Provider MD Yinka Lopez Primary Care Provider DO Vicente Linton Admit Provider [phone] MD Timur Valadez Other Provider Unavail able MD Real Blancas Other Provider KEITH De La Cruz Other Provider [phone] MD Stephanie Hardy Other Provider DO Garcia Sanchez Other Provider [phone] MD Lakeisha Miller Other Provider MD Hortensia Clinton Attending Provider MD Yinka Lopez Primary Care Provider MD Timur Valadez Other Provider Unavail able MD Fabiola Marinelli Attending Provider [phone] MD Fabiola Marinelli Referring Provider DO Loyd Raymundo Attending Provider [phone] MD Yinka Lopez Primary Care Provider KEITH Newsome Attending Provider Berto JASSO, Yinka Oconnor Unavailable Yinka Lopez MD Primary Care Provider Deepali GLASS CUT OFF SUPERVISOR, Fabiola Unavailable Mercedez GLASS CUT OFF SUPERVISOR, Letty R Unavailable Beverly RN, Sima Unavailable [phone] Deepali GLASS CUT OFF SUPERVISOR-C Fabiola Attending Provider Berto JASSO, Yinka Primary Care Provider [phone] Fabiola Marinelli MD Attending Provider Fabiola Marinelli MD Referring Provider Loyd Raymundo DO P Attending Provider Letty Newsome APRN Attending Provider Deepali CAN-C, Fabiola Attending Provider [phone] Berto JASSO, Yinka Primary Care Provider Fabiola Marinelli MD Attending Provider Fabiola Marinelli MD Referring Provider Garcia Sanchez DO Attending Provider [phone] Berto JASSO, Yinka Primary Care Provider Fabiola Marinelli MD Attending Provider [phone] Fabiola Marinelli MD Referring Provider VAN BESIEN, KOEN Referring Unavailable YVES, FABIOLA M Primary Care Unavailable VAN BESIEN, KOEN Referring Unavailable YVES, FABIOLA M Primary Care Unavailable LISETTE PERKINS Attending Unavailable VAN BESIEN, KOEN Referring Unavailable YVES, FABIOLA M Primary Care Unavailable VAN BESIEN, KOEN Referring Unavailable YVES, FABIOLA M Primary Care Unavailable LISETTE PERKINS Attending Unavailable YVES, FABIOLA M Primary Care Unavailable LISETTE PERKINS Referring Unavailable YVES, FABIOLA M Primary Care Unavailable VAN BESIEN, KOEN Referring Unavailable YVES, FABIOLA M Primary Care Unavailable LISETTE PERKINS Attending Unavailable VAN BESIEN, KOEN Referring Unavailable YVES, FABIOLA M Primary Care Unavailable LISETTE PERKINS Attending Unavailable YVES, FABIOLA M Primary Care Unavailable VAN BESIEN, KOEN Referring Unavailable YVES, FABIOLA M Primary Care Unavailable LISETTE PERKINS Referring Unavailable YVES, FABIOLA M Primary Care Unavailable VAN BESIEN, KOEN Referring Unavailable YVES, FABIOLA M Primary Care Unavailable VAN BESIEN, KOEN Attending Unavailable VAN BESIEN, KOEN Referring Unavailable YVES, FABIOLA M Primary Care Unavailable VAN BESIEN, KOEN Referring Unavailable YVES, FABIOLA M Primary Care Unavailable VAN BESIEN, KOEN Referring Unavailable YVES, FABIOLA M Primary Care Unavailable VAN BESIEN, KOEN Attending Unavailable YVES, FABIOLA M Primary Care Unavailable VAN BESIEN, KOEN Referring Unavailable YVES, FABIOLA M Primary Care Unavailable VAN BESIEN, KOEN Referring Unavailable YVES, FABIOLA M Primary Care Unavailable VAN BESIEN, KOEN Attending Unavailable VAN BESIEN, KOEN Referring Unavailable YVES, FABIOLA M Primary Care Unavailable VAN BESIEN, KOEN Referring Unavailable YVES, FABIOLA M Primary Care Unavailable LISETTE PERKINS Attending Unavailable VAN BESIEN, KOEN Referring Unavailable YVES, FABIOLA M Primary Care Unavailable VAN BESIEN, KOEN Referring Unavailable YVES, FABIOLA M Primary Care Unavailable VAN BESIEN, KOEN Referring Unavailable YVES, FABIOLA M Primary Care Unavailable VAN BESIEN, KOEN Attending Unavailable VAN BESIEN, KOEN Referring Unavailable YVES, FABIOLA M Primary Care Unavailable VAN BESIEN, KOEN Referring Unavailable YVES, FABIOLA M Primary Care Unavailable LISETTE PERKINS Attending Unavailable YVES, FABIOLA M Primary Care Unavailable VAN BESIEN, KOEN Referring Unavailable YVES, FABIOLA M Primary Care Unavailable VAN BESIEN, KOEN Attending Unavailable VAN BESIEN, KOEN Referring Unavailable YVES, FABIOLA M Primary Care Unavailable VAN BESIEN, KOEN Referring Unavailable YVES, FABIOLA M Primary Care Unavailable LISETTE PERKINS Attending Unavailable YVES, FABIOLA M Primary Care Unavailable VAN BESIEN, KOEN Referring Unavailable YVES, FABIOLA M Primary Care Unavailable KAPIL MORTENSEN Attending Unavailable YVES, FABIOLA M Primary Care Unavailable Berto JASSO, Yinka Primary Care Provider Garcia Sanchez DO Attending Provider [phone] Fabiola Marinelli MD Attending Provider Yves JASSO, Fabiola Referring Provider Marlon Alba DO Emergency Provider [phone] Fabiola Marinelli MD Attending Provider Fabiola Marinelli MD Referring Provider Azar Harris MD PhD, Supa Unavailable [phone] Jessica Grove RN Unavailable Unavailable Yves JASSO, Fabiola Flower Primary Care Provider [phone] Gregorio VISUAL [employer] DEVELOPMENT REPRESENTATIVE, Lisette Hayden Unavailable [phone] Juan Antonio JASSO PhD, Theresa Flower Unavailable Mich JASSO PhD, [facility] Unavailable Berto JASSO, Yinka Primary Care Provider Marlon Alba DO Emergency Provider [phone] Fabiola Marinelli MD Attending Provider Fabiola Marinelli MD Referring Provider Katie Holder APRN Attending Provider Fabiola Marinelli MD Attending Provider [phone] Yves JASSO, Fabiola Referring Provider [phone] Beverly SALDANA, Sima Unavailable Emely Pedersen DO Primary Care Provider Berto JASSO, Yinka Primary Care Provider Yves JASSO, Fabiola Attending Provider Katie Holder APRN Attending Provider Katie Holder APRN Other Provider Yves JASSO, Fabiola Referring Provider Emely Pedersen DO Attending Provider Yves JASSO, Fabiola Referring Provider Garcia Sanchez DO Attending Provider Emely Pedersen DO Primary Care Provider Fabiola Marinelli MD Referring Provider EMELY PEDERSEN Primary Care Physician Berto JASSO, Yinka Primary Care Provider Fabiola Marinelli MD Attending Provider Fabiola Marinelli MD Referring Provider LYGARCIA Referring Unavailable Marlon VALENZUELA Attending Unavailable GARCIA SANCHEZ Referring Unavailable Marlon VALENZUELA Attending Unavailable Marlon VALENZUELA Admitting Unavailable Marlon VALENZUELA Attending Unavailable Fabiola Marinelli MD Referring Provider [phone] Gregorio PARKER-Lisette CASTANEDA Unavailable [phone] Mich JASSO PhD, [facility] Unavailable [phone] Emely Pedersen DO Primary Care Provider RAMAN NICHOLAS Referring Unavailable FABIOLA MARINELLI Primary Care Unavailable RAMAN NICHOLAS Referring Unavailable YVESFABIOLA RECINOS Primary Care Unavailable RAMAN NICHOLAS Referring Unavailable FABIOLA MARINELLI Primary Care Unavailable RAMAN NICHOLAS Referring Unavailable NUVIA, EMELY Primary Care Unavailable RAMAN NICHOLAS Referring Unavailable NUVIA, EMELY Primary Care Unavailable Marlon VALENZUELA Referring Unavailable Marlon VALENZUELA Attending Unavailable Marlon VALENZUELA Admitting Unavailable Fabiola Marinelli MD Referring Provider Marlon Alba DO Emergency Provider Berto JASSO, Yinka Primary Care Provider [phone] Katie Holder APRN Attending Provider Katie Holder APRN Other Provider Fabiola Marinelli MD Attending Provider [phone] Fabiola Marinelli MD Referring Provider [phone] Yves JASSO, Fabiola Referring Provider [phone] Berto JASSO, Ynika Primary Care Provider [phone] Katie Holder APRN Attending Provider Fabiola Marinelli MD Referring Provider Katie Holder Attending Unavailable Lopez, Yinka Primary Care Unavailable GalloTruman truongine M Admitting Unavailable GalloTruman truongine M Attending Unavailable Truman Holderine M Admitting Unavailable Lopez, Yinka Primary Care Unavailable Katie Holder Attending Unavailable GalloTruman truongine M Admitting Unavailable Nuvia, Emely L Primary Care Unavailable GalloTrumnaKatie M Attending Unavailable Gallo, Katie M Admitting Unavailable Nuvia, Emely L Primary Care Unavailable GalloTruman truongine M Attending Unavailable Gallo, Katie M Admitting Unavailable Nuvia, Emely L Primary Care Unavailable Gallo, Katie M Admitting Unavailable GalloTruman truongine M Attending Unavailable Nuvia, Emely L Primary Care Unavailable Gallo, Katie M Admitting Unavailable Gallo, Katie M Attending Unavailable Lopez, Yinka Primary Care Unavailable Gallo, Katie M Admitting Unavailable Gallo, Katie M Attending Unavailable Lopez, Yinka Primary Care Unavailable Yves, Fabiola Attending Unavailable Vyes, Fabiola Referring Unavailable Yves, Fabiola Admitting Unavailable Nuvia, Emely L Primary Care Unavailable Nuvia, Emely L Primary Care Unavailable Tupa, Marlon M Attending Unavailable Tupa, Marlon M Admitting Unavailable Tupa, Marlon M Admitting Unavailable Tupa, Marlon M Attending Unavailable Lopez, Yinka Primary Care Unavailable Lopez, Yinka Primary Care Unavailable Ly, Garcia L Attending Unavailable Ly, Garcia L Admitting Unavailable Ly, Garcia L Attending Unavailable Ly, Garcia L Admitting Unavailable Lopez, Yinka Primary Care Unavailable Lopez, Yinka Primary Care Unavailable Ly, Garcia L Attending Unavailable Ly, Garcia L Admitting Unavailable Nuvia, Emely L Admitting Unavailable Nuvia, Emely L Attending Unavailable Lopez, Yinka Primary Care Unavailable Ly, Garcia L Admitting Unavailable Ly, Garcia L Attending Unavailable Nuvia, Emely L Primary Care Unavailable Warchol, Fabiola Attending Unavailable Lopez, Yinka Primary Care Unavailable Warchol, Fabiola Admitting Unavailable SHIRAZ, JUAN J Referring Unavailable LOPEZ, YINKA LEILANI Primary Care Unavailable SHIRAZ, JUAN J Attending Unavailable SHIRAZ, JUAN J Referring Unavailable LOPEZ, YINKA LEILANI Primary Care Unavailable NUVIA, EMELY Attending Unavailable NUVIA, EMELY Attending Unavailable SHEILA PILLAI Attending Unavailable LAUSELETTY Referring Unavailable NUVIA, EMELY Attending Unavailable NUVIA, EMELY Attending Unavailable LOPEZ, YINKA A Attending Unavailable WARCHOL, FABIOLA Attending Unavailable NUVIA, EMELY Attending Unavailable NUVIA, EMELY Attending Unavailable NUVIA, EMELY Attending Unavailable LACONISJOAQUINA Attending Unavailable Allergies Allergy ClassificationReported Allergen(s)Allergy TypeDate of OnsetReaction(s) Facility (20 sources)Latex; Translations: [LATEX]Allergy to odarxzquo62-58-6451Rbyof: See Comments, Hives, Rash, [facility]moxifloxacin; Translations: [MOXIFLOXACIN]Drug Fmjbvbm95-53-3003 Hives, Rash, Unknown, Unknown (qualifier value)[facility] (20 sources)Quinolones (Antibiotic); Translations: [Quinolones]Allergy to -05-0115KfcosHqwbeejxgA[facility]man [facility] (20 sources)Tetracycline; Translations: [tetracycline]Drug Ukpczuc69-61-4076 Other: See Comments, Unknown, Hives, [facility] (20 sources)erythromycin base; Translations: [Erythromycin Base]Allergy to gtcxryewe05-28-1994BuwauJxagtfqjxAultman Hospital (20 sources)Adhesive agent; Translations: [ADHESIVE]Drug Synxlig37-34-5475Xdkvh: See Comments, [facility] (20 sources)Amoxicillin; Translations: [AMOXICILLIN]Drug Hhecjzl14-52-8451 Swelling, [facility] Work Phone: (20 sources)Diclofenac; Translations: [DICLOFENAC SODIUM]Drug Fcpvbyj26-64-2385 [facility] (20 sources)Doxycycline; Translations: [doxycycline]Drug Hfqajmm41-17-8197 Unknown, hives, Swelling, Unknown (qualifier value)[facility] (6 sources)Doxycycline; Translations: [DOXYCYCLINE CALCIUM]Drug Allergy 99-82-9649[facility] Work Phone: (20 sources)Erythromycin; Translations: [ERYTHROMYCIN]Drug Xqcveaq59-81-2461 [facility] (6 sources)Platelets; Translations: [PLATELETS]Propensity to adverse reactions to apeh99-09-6239Mdltb: See [facility] Work Phone: (1 source)Adhesive agentDrug allergy (disorder)44-05-0934Xuj [facility] (9 sources)Diclofenac; Translations: [Voltaren]Drug Vlntxpz25-73-9344aqdnkQie [facility] Repository (3 sources)Doxycycline; Translations: [Vibramycin]Drug Wmppcvw79-94-7343[facility] (3 sources)moxifloxacin; Translations: [Avelox]Drug Kqpvnqi03-47-7112[facility] (20 sources)Diclofenac; Translations: [DICLOFENAC]Drug Qzsycjk36-17-2284zlogk, Unknown, Unknown (qualifier value)[facility] (20 sources)Tetracycline (class of antibiotic); Translations: [TETRACYCLINES] Propensity to adverse bibbzdpby95-58-4544[facility]sMet[facility] Work Phone: (20 sources)Antazoline; Translations: [ANTAZOLINE]Drug Jrctorw99-56-1056Hyvdkcu, [facility] Work Phone: (20 sources)OtherPropensity to adverse nukgmdqic22-04-5117UxmgbmhyfQXZK Healthcare (20 sources)Wound Dressing AdhesiveDrug Jmxovph82-32-7306CshbpywRBJA Healthcare (2 sources)Adhesive agentDrug Stbmbri47-71-4574YtvgdJtgodrtrtcKettering Health [facility] (2 sources)TetracyclinesPropensity to adverse oruudtxvz79-37-3729Dplir, Rash [facility] Work Phone: (1 source)DiclofenacDrug Wjpkqvj38-24-9458ZpfoqsojjSalem City Hospital Rep[facility] (1 source)DoxycyclineDrug Ekdcsyh95-99-6829WdrynlgwwSalem City Hospital Repository Medications Current Medications MedicationDrug Class(es)DatesSig (Normalized)Sig (Original)0.25 MG, 0.5 MG Dose 3 ML semaglutide 0.68 MG/ML Pen Injector (1 source)Start: 74-70-8472ppchgwglcyoit 325 mg / oxyCODONE hydrochloride 10 mg oral tablet (5 sources)Opioid AgonistStart: 80-43-4135lrny 1 tablet by mouth every four hours as neededOXYCODONE-ACETAMINOPHEN 10-325 mg tablet Take 1 tablet by mouth every 4 hours as needed. 05/07/2013ctiveComment on above:Take 1 tablet by mouth every 4 hours as needed.albuterol 0.83 mg/ml inhalation solution (20 sources)beta2-Adrenergic AgonistStart: 08-04-2025 End: 40-57-0746lybqulcdk (2.5 MG/3ML) 0.083% nebulizer solution Indications: Chronic obstructive pulmonary disease, unspecified COPD type (HCC) Take 3 mL (2.5 mg) by nebulization every 6 (six) hours if needed for wheezing 75 mL 2 08/04/2025 11/02/2025 ActiveStart: 52.5 mg, nebulization, Once as needed, wheezing, Starting on Mela 06/22/25 at 0847, For 1 dose, Recovery (only) Start: 01-17-2025 End: 59-77-3679ykpvhbini (2.5 MG/3ML) 0.083% nebulizer solution Indications: Chronic obstructive pulmonary disease, unspecified COPD type (HCC) Take 3 mL (2.5 mg) by nebulization every 6 (six) hours if needed for wheezing 75 mL 2 03/01/2025 ActiveStart: 03-21-2024 End: 89-76-6967Uzyzc: 03-21-2024 End: 59-55-8023blngsqssn (2.5 MG/3ML) 0.083% nebulizer solution Indications: Chronic obstructive pulmonary disease, unspecified COPD type (CMS/HCC) Take 3 mL (2.5 mg) by nebulization every 6 (six) hours if needed for wheezing 75 mL 2 05/23/2024 ActiveStart: 41-75-6453gyadtintf 2.5 mg /3 mL (0.083 %) nebulizer solution 3 mLStart: 91-01-6168xaah 2.5 mg by inhalation every four hours as needed2.5 mg, nebulization, Every 4 hours PRN, shortness of breath, wheezing, Starting on Thu08/04/23 at 0035Start: 52-26-4786ddhj 2 puff(s) by inhalation every four hours for wheezingalbuterol 90 mcg/actuation inhaler Inhale 2 puffs every 4 hours if needed for shortness of breath or wheezing. 07/14/2023 Active Start: 95-72-1442wxvu 2 puff(s) by inhalation every six hours for wheezing2 puff, inhalation, Every 6 hours PRN, shortness of breath, wheezing, Starting on Thu11/18/23 at 1423 Shake well before use.Start: 32-21-6723Khkpl: 12-02-2022 End: mL, nebulization, As needed, For respiratory rate GREATER THAN OR EQUAL TO 28 breaths/minute and/or wheezing., Starting on Thu08/04/23 at 0959, For 1 doseStart: 94-12-7144mbtcsboba 0.083% Inh [place] 3 mL 2.5 mg, 3 mL, NEB, As Directed Start Date: 12/25/20 Status: Ordered Repeat number: 1Start: 11-24-2017 ALBUTEROL INHALATION Inhale as instructed. 11/24/2017 ActiveStart: 11-24-2017 ALBUTEROL INHALATION Inhale as instructed. 0 11/24/2017 ActiveStart: 11-24-2017 End: 25-21-3284Bwndj: 11-24-2017 End: 01-13-9031qreh 1 puff(s) by inhalation every four to six hoursAlbuterol Sulfate (Proair Hfa) 90 mcg/actuation Hfa Aerosol Inhaler Discontinued 1 PUFF INHALATION EVERY 4-6 HOURS November 24, 2017 1:00am April 18, 2019 11:58am Start: 95-18-7172imsg 1 puff(s) by inhalation every four hoursAlbuterol Sulfate Active 2 PUFF INHALATION Q4H November 24, 2017 1:00amStart: 56-15-4274lrgz 1 puff(s) by inhalation every six hoursAlbuterol Sulfate Active 2 PUFF INHALATION Q6H November 24, 2017 12:00amStart: 00-38-1293jvtx 1 puff(s) by inhalation every six hoursAlbuterol Sulfate Active 2 PUFF INHALATION Q6H November 24, 2017 1:00amtake 2 puff(s) by mouth every four hours as neededAlbuterol Sulfate HFA 108 (90 Base) MCG/ACT TAKE 2 PUFFS BY MOUTH EVERY 4 HOURS NEEDED Inhalation for 17 Activetake 2 puff(s) by mouth every four hours as neededAlbuterol Sulfate HFA 108 (90 Base) MCG/ACT TAKE 2 PUFFS BY MOUTH EVERY 4 HOURS NEEDED Inhalation for 17 Activetake 2 puff(s) by mouth every four hours as needed Albuterol Sulfate HFA 108 (90 Base) MCG/ACT TAKE 2 PUFFS BY MOUTH EVERY 4 HOURS NEEDED Inhalation for 17 ActiveComment on above:Inhale as instructed. alteplase (Cathflo Activase) injection 2 mg (1 source)Start: mg, intra-catheter, As needed, line care, Starting on Thu11/18/23 at 1423 Central line port. Dilute each 2 mg vial with 2.2 mL sterile water to give 1 mg/mL final concentration. Swirl gently to mix; do not shake.atorvastatin 40 mg oral tablet (20 sources)HMG-CoA Reductase InhibitorStart: 04-25-2024 End: 10-43-2920vnfp 1 tablet by mouth once dailyatorvastatin (Lipitor) 40 MG tablet Indications: Hyperchylomicronemia Take 1 tablet (40 mg) by mouth Daily 90 tablet 1 06/12/2025 12/09/2025 ActiveStart: 01-28-2023 End: 99-45-4390Chuuj: 04-27-2019 End: 21-31-1533enkx 1 tablet by mouth once dailyatorvastatin (Lipitor) 80 mg tablet Take 1 tablet (80 mg) by mouth once daily. 06/07/2023 ActiveComment on above:Take 1 tablet by mouth daily at bedtime.azithromycin 250 mg oral tablet (20 sources)Macrolide AntimicrobialStart: 04-10-2025 End: 53-86-9150kdyijpzfvzij (Zithromax Z-Emiliano) 250 MG tablet Indications: COPD with acute exacerbation (HCC) Take as directed 6 tablet 04/10/2025 05/15/2025 Discontinued (Therapy completed)Start: 12-01-2024 End: 11-62-8594nnbspsowypob (Zithromax) 250 MG tablet Indications: Upper respiratory tract infection, unspecified type Take two tablets on day 1, and one tablet on days 2-5 6 tablet 12/01/2024 12/20/2024 Discontinued (Therapy completed)Start: 07-19-2024 End: 53-27-2561zrdxcofhxgqw (Zithromax) 250 MG tablet Indications: Upper respiratory tract infection, unspecified type Take two tablets on day 1, and one tablet on days 2-5 6 tablet 07/19/2024 08/23/2024 Discontinued (Therapy completed)Start: 01-26-2023 End: 28-71-0612Etdau: 01-26-2023 End: 18-03-8920Wmtvz: 11-26-2020 End: 60-22-4407Hdprj: 11-26-2020 End: 76-00-5911pkoyfqvbjvy 200 mg oral capsule (4 sources)Non-narcotic AntitussiveStart: 04-10-2025 End: 55-76-5555ggmi 1 capsule by mouth three times daily as needed for cough benzonatate (Tessalon) 200 MG capsule Indications: Cough, unspecified type Take 1 capsule (200 mg) by mouth 3 (three) times a day as needed for cough for up to 7 days Do not crush or chew. 21 dcxzjuo3004/10/2025 04/17/2025 Lgbajj550 actuat budesonide 0.16 mg/actuat / formoterol fumarate 0.0048 mg/actuat / glycopyrrolate 0.009 mg/actuat metered dose inhaler (20 sources)Corticosteroid, beta2-Adrenergic AgonistStart: 06-28-2024 End: 10-22-8342Upeav: 52-88-8460Anzayicgqc-Glycopyr-Formoterol (Breztri Aerosphere) 160-9-4.8 mcg/actuation HFA aerosol inhaler Active 2 INH INHALATION Twice daily June 28, 2024 12:00amStart: 03-24-2024 End: 33-44-3898Ndnza: 03-24-2024 End: 95-51-8625Gmohfammto-Glycopyr-Formoterol (Breztri Aerosphere) 160-9-4.8 mcg/actuation HFA aerosol inhaler Discontinued 2 INH INHALATION Twice daily 10.7 30 April 06, 2024 10:59am April 10, 2024 6:02pmtake 2 puff(s) by inhalation in the pqhovcbXmmzwfh-Qszcjvlivfd-Lwsmermqkd (Breztri Aerosphere) 160-9-4.8 MCG/ACT aerosol Inhale 2 puffs in themorning and 2 puffs before bedtime. Activetake 2 puff(s) by inhalation twice lsnyashglanlbwa-ftusgjud-ynuxxdduyw (Breztri Aerosphere) 160-9-4.8 mcg/actuation HFA aerosol inhaler Inhale 2 puffs 2 times a day. Activecalcium chloride 0.0014 meq/ml / potassium chloride 0.004 meq/ml / sodium chloride 0.103 meq/ml / sodium lactate 0.028 meq/ml injectable solution (1 source)Start: 01-05-2025 End: 10-37-9842ofnh 100 mL intravenously every wrtt710 mL/hr, intravenous, Continuous, Starting on Mela 01/05/25 at 1000, For 1 day, Recovery (only)carvedilol 12.5 mg oral tablet (20 sources)alpha-Adrenergic Arnoldo, beta-Adrenergic BlockerStart: 11-20-2017 End: 00-71-4738xtaj 1 tablet by mouth in the morningcarvedilol (Coreg) 12.5 MG tablet Indications: Hypertension, unspecified type Take 1 tablet (12.5 mg) by mouth in the morning and 1 tablet (12.5 mg) in the evening. Take with meals. 180 tablet 06/07/2025 09/05/2025 Activetake 1 tablet by mouth every twenty-four hoursCarvedilol 12.5 MG 1 tablet with food Orally Once a day ActiveComment on above:Take 1 tablet by mouth twice daily with meals.cefdinir 300 mg oral capsule (18 sources)Cephalosporin AntibacterialStart: 40-33-0622sbam 1 capsule by mouth twice daily, then take 1 capsule by mouth once dailycefdinir (Omnicef) 300 MG capsule TAKE 1 CAPSULE BY MOUTH TWICE A DAY FOR 1 WEEK THEN 1 CAPSULE ONCE A DAY FOR 2 MONTHS 07/11/2025 ActiveStart: 02-01-2025 End: 82-90-9906tjrd 1 capsule by mouth in the morningcefdinir (Omnicef) 300 MG capsule Indications: Bronchitis Take 1 capsule (300 mg) by mouth in the morning and 1 capsule (300 mg) before bedtime. Do all this for 10 days. 20 capsule 02/01/2025 02/11/2025 ActiveStart: 01-17-2025 End: 50-30-1398zjpv 1 capsule by mouth in the morningcefdinir (Omnicef) 300 MG capsule Indications: COPD with acute exacerbation (CMS/HCC) Take 1 capsule (300 mg) by mouth in the morning and 1 capsule (300 mg) before bedtime. Do all this for 7 days. 14capsule 01/17/2025 01/24/2025 ActiveStart: 02-01-2024 End: 64-25-8184ophs 1 capsule by mouth twice dailycefdinir (Omnicef) 300 mg capsule Indications: Cough, unspecified type Take 1 capsule (300 mg) by mouth 2 times a day for 10 days. 20 capsule 02/01/2024 02/11/2024 Expiredcephalexin 500 mg oral capsule (20 sources)Cephalosporin AntibacterialStart: 07-73-3665xpsy 1 capsule by mouth once dailyKeflex 500 mg Cap 500 mg = 1 cap(s), Oral, Daily, take one day before procedure and take one day after procedure, # 2 cap(s), Refills(s) 0, Pharmacy: [facility]/pharmacy #[id number], 160, cm, 06/12/25 10:05:00 EDT, Height/Length Dosing, 89.9, kg, 06/12/25 10:05:00 EDT, Weight Dosing Start Date: 06/12/25 Status: Ordered Quantity: 2.0 Unit: cap(s) Repeat number: 1Start: 01-29-2023 End: 29-85-7154Zjxew: 01-29-2023 End: 90-74-4911Jnqpi: 11-27-2020 End: 44-99-5632Jrguq: 11-27-2020 End: 46-63-3926plihzytxjj hydrochloride 10 mg oral tablet (20 sources)Histamine-1 Receptor AntagonistStart: 09-22-2024 End: 86-01-2371ssgv 1 tablet by mouth at bedtimecetirizine (ZyrTEC) 10 MG tablet Indications: Seasonal allergic rhinitis due to pollen Take 1 tablet (10 mg) by mouth at bedtime 90 tablet 3 11/16/2024 11/16/2025 ActiveStart: 75-42-0659Nbxak: 05-30-2024 End: 25-41-8594hxhy 1 tablet by mouth at bedtimecetirizine (ZyrTEC) 10 MG tablet Indications: Seasonal allergic rhinitis due to pollen Take 1 tablet (10 mg) by mouth at bedtime 30 tablet 1 05/30/2024 Activecholecalciferol 0.125 mg oral capsule (20 sources)Vitamin DStart: 74-75-1760Ztnhj: 02-27-2023 End: 98-61-7945rmfa 1 capsule by mouth once dailycholecalciferol (Vitamin D-3) 125 MCG (5000 UT) capsule TAKE 1 CAPSULE BY MOUTH EVERY DAY FOR 90 DAYS 02/27/2023 ActiveStart: 09-04-2022 End: 12-83-1123supa 1 capsule by mouth once dailyCholecalciferol, Vitamin D3, 125 mcg (5,000 unit) cap TAKE 1 CAPSULE BY MOUTH EVERY DAY FOR 90 DAYS09/04/2022 ActiveStart: 04-13-2019 End: 26-82-1053Kkmoc: 09-15-2018 End: 02-53-1434Zdogbzk D3 125 MCG (5000 UT) as directed Orally 2 capsules 4 days a week, 3 capsules 3 days a week.Not-Taking/PRNComment on above:TAKE 1 CAPSULE BY MOUTH EVERY DAY FOR 90 DAYSdextromethorphan hydrobromide 3 mg/ml / promethazine hydrochloride 1.25 mg/ml oral solution (4 sources)Phenothiazine, Uncompetitive C-vanbux-L-aspartate Receptor Antagonist, Sigma-1 AgonistStart: 06-20-2024 End: 70-91-4166irdjxlcstanx-dextromethorphan (Phenergan-DM) 6.25-15 MG/5ML syrup Indications: Viral upper respiratory tract infection Take 5 mL by mouth every 4 (four) hours if needed for cough for up to 7 days 118mL 06/20/2024 06/27/2024 Activedocusate sodium 50 mg / sennosides, snf 8.6 mg oral tablet (1 source)Start: 98-47-9249cdjq 2 tablets by mouth once daily as needed for constipation2 tablet, oral, Nightly PRN, constipation, first line, Starting on Thu11/18/23 at 1423 Bowel Regimen - for prevention of constipation Hold for loose [id number] 0.3 ml EPINEPHrine 1 mg/ml auto-injector (20 sources)alpha-Adrenergic Agonist, beta-Adrenergic Agonist, Catecholamine Start: 79-89-2413Gxeyt: 45-65-6252zknise 0.3 mg by intramuscular injection once Epinephrine Active 0.3 MG IM Once April 10, 2024 12:00amStart: 02-22-2024 EPINEPHrine (Epipen) 0.3 MG/0.3ML injection syringe Indications: History of allergic drug reaction Inject 0.3 mL (0.3 mg) as directed 1 (one) time for 1 dose use as directed for allergic reaction andthen call 911 0.3 mL 1 02/22/2024 ActiveStart: 49-45-3000SMKXTOHmcju 0.3 mg/0.3 mL injection syringe 02/22/2024 ActiveStart: 62-10-1610FHSHBGGxujb HCl (PF) (Adrenalin) injection 0.3 mgStart: .3 mg, intramuscular, Every 5 min PRN, anaphylaxis, For immediate severe reaction or moderate reaction with worsening symptoms, Starting on Thu08/04/23 at 0959, For 3 doses Give if moderate reactionprogresses to severe reaction or PRN severe reaction. Repeat in 5 minutes as needed if there is no improvement in symptoms. May repeat for a third dose in 5 minutes as needed if there is no improvement of symptoms. (Maximum dose is 0.9 mg).fluconazole 150 mg oral tablet (20 sources)Azole AntifungalStart: 03-29-2025 End: 13-43-9918glaejktzmpr (Diflucan) 150 MG tablet Indications: Recurrent candidiasis of vagina Take 1 tablet (150 mg) by mouth Daily for 3 days Take one tablet then another tablet 72 hours later if symptoms do not resolve 1 tablet 1 03/29/2025 04/01/2025 ActiveStart: 08-20-2023 End: 58-87-0705pyrg 2 tablets by mouth once dailyfluconazole (Diflucan) 100 mg tablet Indications: Multiple myeloma not having achieved remission (CMS/HCC) Take 2 tablets (200 mg) by mouth once daily. 60 tablet 0 08/20/2023 09/08/2023 Discontinued (Med List Cleanup)Start: 12-26-2022 End: 53-72-6957Yshxc: 12-26-2022 End: 61-42-6247yznq 1 tablet by mouth once dailyFluconazole (Diflucan) 100 mg Tablet Discontinued 100 MG PO Daily December 26, 2022 11:01am January 28, 2023 8:28amfluticasone propionate 0.05 mg/actuat metered dose nasal spray (20 sources)CorticosteroidStart: 51-22-7332ideo 1 spray(s) nasal route once dailyfluticasone (Flonase) 50 MCG/ACT nasal spray Indications: Seasonal allergic rhinitis due to pollen ADMINISTER 1 SPRAY INTO EACH NOSTRIL 1 TIME EACH DAY AT THE SAME TIME 16 mL 2 07/18/2025 ActiveStart: 03-01-2025 End: 81-08-0701bnsd 2 spray(s) nasal route in the morningfluticasone (Flonase) 50 MCG/ACT nasal spray Indications: Seasonal allergic rhinitis due to pollen A dminister 2 sprays into each nostril in the morning and 2 sprays before bedtime. 16 g 2 03/01/2025 ActiveStart: spray, Each Nostril, Daily PRN, rhinitis, Starting on Thu11/18/23 at 1423 Shake gently. Before first use, prime pump (press 6 times until fine spray appears). After use, clean tip and replace cap.Start: 01-28-2023 End: 99-35-9708Ogfay: 30-11-1680pnzm 1 spray(s) nasal route once daily Fluticasone Propionate Active 1 SPRAY INTRANASAL Daily January 28, 2023 12:00am administer into each nostrilStart: 75-46-2795psrnmhdaazm propionate 50 mcg, Inhalation Start Date: 12/25/20 Status: Ordered Repeat number: 1take 1 spray(s) nasal route once dailyFluticasone Propionate 50 MCG/ACT 1 spray in each nostril Nasally Once a day Activetake 1 spray(s) nasal route once dailyFluticasone Propionate 50 MCG/ACT 1 spray in each nostril Nasally Once a day Active fluticasone / salmeterol (20 sources)Corticosteroid, beta2-Adrenergic AgonistStart: 11-76-3686Mmmrrz 250 mcg-50 mcg Powder Inhalation, BID Start Date: 12/25/20 Status: Ordered Repeat number: 1Start: 11-24-2017 End: 46-20-5621Bqnesfivmuo Propion-Salmeterol (Advair Diskus) 250-50 mcg/dose Blister With Device Discontinued 1 INH INHALATION Q12H November 24, 2017 12:00am January 28, 2023 7:28amStart: 11-24-2017 End: 87-11-3154Sasol: 11-24-2017 End: 48-64-3199Upzzmnjeouj Propion-Salmeterol (Advair Diskus) 250-50 mcg/dose Blister With Device Discontinued 1 INH INHALATION Q12H November 24, 2017 1:00am January 28, 2023 8:28amStart: 60-96-4191Zoszbyrzwgt Propion-Salmeterol (Advair Diskus) 250-50 mcg/dose Blister With Device Active 1 INH INHALATION Q12H November 24, 2017 12:00amStart: 77-04-8371Yfbip: 58-59-8462Bapphutkkom Propion- Salmeterol (Advair Diskus) 250-50 mcg/dose Blister With Device Active 1 INH INHA LATION Q12H November 24, 2017 1:00amStart: 85-65-1609XCMPBD DISKUS 250-50 mcg/dose DsDv Inhale 1 Puff as instructed as needed. 05/02/2013 ActiveComment on above:Inhale 1 Puff as instructed as needed. fosfomycin 3000 mg powder for oral solution (20 sources)Start: 38-75-2871frnednxcnf (Monurol) 3 g packet MIX 1 PACKET INTO LIQUID AND TAKE BY MOUTH ONCE EVERY 5 DAYS 06/02/2025 ActiveStart: 06-02-2025 End: 11-13-9550dzqxiuphvm 20 mg oral tablet (20 sources)Loop DiureticStart: 04-19-2024 End: 44-78-9235nlnd 1 tablet by mouth once dailyfurosemide (Lasix) 20 MG tablet Indications: Essential hypertension Take 1 tablet (20 mg) by mouth Daily 90 tablet 3 12/14/2024 12/09/2025 Activeglucagon (rdna) 1 mg injection (2 sources)Antihypoglycemic AgentStart: 22-89-8581rhyijoqk (Glucagen) injection 1 mgStart: mg, intramuscular, Every 15 min PRN, low blood sugar - see comments, For blood glucose less than or equal to 70 mg/dL and no IV access, Starting on Thu08/04/23 at 0032 Give until blood glucose is 100 mg/dL or greater. If patient DOES NOT HAVE secure IV access & patient is unconscious, NPO or is unable to eat or drink.150 ml glucose 50 mg/ml injection (6 sources)Start: 95-17-4814ntvwihxg 5 % in water (D5W) bolusStart: 11-18-2023 dextrose 50 % injection 25 gStart: 58-64-2764dkpriarg 10 % in water (D10W) infusionStart: 67-13-6565448 mL, intravenous, at 1,000 mL/hr, Administer over 30 Minutes, As needed, Moderate or severe hypersensitivity reaction, Starting on Thu08/04/23 at 0959 ADMINISTRATION PRECAUTION Administer for SBP LESS THAN 90 mmHg. Only use if Liposomal DOXOrubicin or OXALIplatin were previously infusing.Start: g, intravenous, Every 15 min PRN, For blood glucose less than or equal to 40 mg/dL, Starting on Thu08/04/23 at 0032 May repeat until blood glucose level reaches 100 mg/dL or greater. Push 2 - 3 mL/minute if patient has secure IV access.Start: .3 g/kg/hr 80.1 kg (240.3 mL/hr), intravenous, Once as needed, For blood glucose less than 70 mg/dL after 30 minutes of intervention. Discontinue once blood glucose reaches 100 mg/dL., Starting on Thu08/04/23 at 0032, For 1 dose Discontinue once blood glucose reaches 100 mg/dL.12 hr guaiFENesin 600 mg extended release oral tablet (3 sources)Start: 08-22-2025 End: 82-42-2456blge 1 tablet by mouth in the morning, then take 1 tablet by mouth every twelve hours at bedtimeguaiFENesin (Mucinex) 600 MG 12 hr tablet Indications: COPD with acute exacerbation (HCC) Take 1 tablet (600 mg) by mouth in the morning and 1 tablet (600 mg) before bedtime. Do all this for 14 days.Do not crush, chew, or split. 28 tablet 08/22/2025 09/05/2025 Activeheparin (4 sources)Unfractionated Heparin, Anti-coagulantStart: 13-50-9987168 Units (5 mL), intra-catheter, As needed, line care, Starting on Mela 01/05/25 at 1322Start: 11-25-2023 End: 28-05-3617ztlulqr flush 100 unit/mL syringe 500 UnitsStart: 96-54-0446822 Units, intra-catheter, As needed, line care, Starting on Mela 08/13/23 at 1217 Start: 08-13-2023 End: 57-92-4146271 Units (5 mL), intravenous, As needed, line care, Starting on Mela 08/13/23 at 1209hydrocortisone 25 mg/ml rectal cream (20 sources)CorticosteroidStart: 24-28-9859plzsqutzohotax (Anusol-HC) 2.5 % rectal cream APPLY RECTALLY 2 TO 4 TIMES PER DAY NEEDED FOR HEMORRHOIDS 11/16/2024 ActiveStart: 29-75-9584atwuxtdqquycpd (Anusol-HC) 2.5 % rectal cream APPLY RECTALLY 2 TO 4 TIMES PER DAY NEEDED FOR HEMORRHOIDS 11/16/2024 Active Start: 38-51-6117Ojkrutjrxrhcur-Pramoxine (12 sources)CorticosteroidStart: 08-20-6217Pjswtqw Detemir 100 UNIT/ML (13 sources)Insulin Detemir 100 UNIT/ML as directed Subcutaneous Activeinsulin lispro 100 unt/ml injectable solution (2 sources)Insulin AnalogStart: 73-88-7924aciixtr lispro (HumaLOG) injection 0-5 UnitsStart: -10 Units, subcutaneous, 3 times daily with meals, First dose on Thu08/04/23 at 0800 Insulin Lispro Corrective Scale #2 Hypoglycemia protocol Call LIP unit(s) if Blood Glucose isbetween 0 - 70 mg/dL 0 unit(s) if Blood glucose is between 71-150 2 un it(s) if Blood glucose is between 151-200 4 unit(s) if Blood glucose is between 201-250 6 unit(s) if Blood glucose is between 251-300 8 unit(s) if Blood glucose is between 301-350 10 unit(s) if Blood glucose is between 351-400 Notify provider unit(s) if Blood Glucose is greater than 400 mg/dLmagnesium oxide 400 mg oral tablet (20 sources)Start: 01-24-2025 End: 38-61-6626Sfshd: 12-29-2024 End: 24-97-6607mqce 1 tablet by mouth once dailymagnesium oxide (Mag-Ox) 400 (240 Mg) MG tablet Take 400 mg by mouth Daily 12/29/2024 ActiveStart: 04-19-2024 End: 55-32-8317rryhiyama 1 mg oral tablet (20 sources)Start: 39-62-4780tmpw 2 tablets by mouth once daily at bedtime melatonin 1 mg tablet Take 2 tablets (2 mg) by mouth once daily at bedtime. Neuyjh33 hr metFORMIN hydrochloride 500 mg extended release oral tablet (20 sources)BiguanideStart: 58-67-7377qhek 500 mg by mouth twice dailymetformin 500 mg, Oral, BID Start Date: 12/25/20 Status: Ordered Repeat number: 1Start: 03-05-2020 End: 11-65-6613jsip 1 tablet by mouth once dailymetFORMIN XR (Glucophage-XR) 500 MG 24 hr tablet Indications: Diabetes mellitus without complication (HCC) Take 1 tablet (500 mg) by mouth Daily 90 tablet 06/07/2025 09/05/2025 ActiveStart: 03-05-2020 End: 21-69-6762tjqg 500 mg by mouth twice dailyMetformin Discontinued 500 MG PO Twice daily March 05, 2020 12:00am April 19, 2024 1:14pmtake 1 tablet by mouth oncemetFORMIN (Glucophage) 500 mg tablet Take 1 tablet (500 mg) by mouth 1 time. ActiveComment on above:TAKE 1 TABLET BY MOUTH TWICE A DAY WITH A MEAL methylPREDNISolone 40 mg injection (2 sources)CorticosteroidStart: 90-37-3689jrpazkXNJCPTVxvqqw sod succinate (PF) (SOLU-Medrol) 40 mg/mL injection 40 mgStart: 44-95-931722 mg, intravenous, As needed, Give second for moderate or severe hypersensitivity reaction, Starting on Thu08/04/23 at 0959, For 1 doseMiraLax 17 GM/SCOOP (4 sources)MiraLax 17 GM/SCOOP as directed Orally Activemorphine sulfate 15 mg extended release oral tablet (20 sources)Opioid AgonistStart: 18-75-1193bluz 1 tablet by mouth in the morning, then take 1 tablet by mouth every twelve hours at bedtimemorphine CR (MS Contin) 15 MG 12 hr tablet Take 15 mg by mouth in the morning and 15 mg before bedtime. 07/19/2025 ActiveStart: 06-15-2025 End: 48-15-7987Xkscd: 05-28-2025 End: 91-72-4530Tjwgg: 05-26-2025 End: 56-94-4459Cgjok: 05-18-2025 End: 24-30-2116hshyijxu hydrochloride 40 mg/ml nasal spray (20 sources)Opioid AntagonistStart: 19-33-0463Rqvuo: 04-19-1858Pbmwhaoz Active 1 SPRAY INTRANASAL every 2 to 3 minutes March 21, 2024 12:00am spray 1 dose into ONE nostril; alternate nostrils w each dose until help arrivesStart: 02-01-2024 naloxone (Narcan) 4 mg/0.1 mL nasal spray Administer 4 mg into affected nostril(s) 02/01/2024 ActiveStart: 83-85-2049jprrdweu (Narcan) 4 mg/0.1 mL nasal spray Indications: Cough, unspecified type , Other chronic painAdminister 1 spray (4 mg) into affected nostril(s) if needed for opioid reversal. May repeat every 2-3 minutes if needed, alternating nostrils, until medical assistance becomes available. 2 each 02/01/2024 ActiveStart: 79-00-8278ldnyxbet (Narcan) 4 mg/0.1 mL nasal spray Indications: Cough, unspecified type , Other chronic pain Administer 1 spray (4 mg) into affected nostril(s) if needed for opioid reversal. May repeat every 2-3 minutes if needed, alternating nostrils, until medical assistance becomes available. 2 each 02/01/2024 Activenitrofurantoin, macrocrystals 25 mg / nitrofurantoin, monohydrate 75 mg oral capsule (8 sources)Nitrofuran AntibacterialStart: 03-29-2025 End: 71-31-4595svhg 1 capsule by mouth in the morningnitrofurantoin, macrocrystal-monohydrate, (Macrobid) 100 MG capsule Indications: Acute cystitis without hematuria Take 1 capsule (100 mg) by mouth in the morning and 1 capsule (100 mg) before bedtime. Do all this for 5 days. 10 capsule 03/29/2025 04/10/2025 Discontinued (Therapy completed)Start: 03-13-2025 End: 52-78-3537excj 1 capsule by mouth in the morningnitrofurantoin, macrocrystal-monohydrate, (Macrobid) 100 MG capsule Indications: Dysuria Take 1 capsule (100 mg) by mouth in the morning and 1 capsule (100 mg) in the evening. Take with meals. Do allthis for 7 days. 14 capsule 03/13/2025 03/20/2025 nystatin 348330 unt/ml oral suspension (20 sources)Polyene AntifungalStart: 06-03-2024 End: 05-91-5396fpbjlxpk (Mycostatin) 117214 UNIT/ML suspension Indications: Thrush Take 5 mL (500,000 Units) by mouth in the morning and 5 mL (500,000 Units) at noon and 5 mL (500,000 Units) in the evening and 5 mL(500,000 Units) before bedtime. Do all this for 14 days. 280 mL 06/03/2024 06/20/2024 Active Start: 10-15-2022 End: 76-13-1638rdky 1 mL by mouth four times dailyNystatin Discontinued 4 ML PO Four times daily October 15, 2022 1:00am November 26, 2022 11:47am swish and swallowStart: 06-18-2020 End: 12-78-6458Jwzbh: 06-18-2020 End: 00-17-9074kzvi 0.5 mL by mouth three times daily as needed for painNystatin 420928 UNIT/ML APPLY 1/2 ML TO EACH SIDE OF MOUTH 3 TIMES A DAY NEEDED FOR ORAL PAIN Mouth/Throat for 90 Not-Taking/PRNtake 0.5 mL by mouth three times daily as needed for painNystatin 798900 UNIT/ML APPLY 1/2 ML TO EACH SIDE OF MOUTH 3 TIMES A DAY NEEDED FOR ORAL PAIN Mouth/Throat for 90 Not-Taking omeprazole 40 mg delayed release oral capsule (20 sources)Proton Pump InhibitorStart: 08-11-2025 End: 94-58-9793yvrs 1 capsule by mouth before mealtimeomeprazole (PriLOSEC) [address] capsule Indications: Gastroesophageal reflux disease, unspecified whether esophagitis present Take 1 capsule (40 mg) by mouth in the morning. Take before meals. Do not crush or chew. 90 capsule 2 08/11/2025 05/08/2026 ActiveStart: 66-08-2076plcd 40 mg by mouth once dailyomeprazole 40 mg, Oral, Daily Start Date: 12/25/20 Status: Ordered Repeat number: 1Start: 11-24-2017 End: 94-89-1605Pnozn: 05-02-2013 End: 31-94-0186Cvgtdim on above:Take 40 mg by mouth once daily.oxyCODONE hydrochloride 10 mg oral tablet (20 sources)Opioid AgonistStart: 07-19-2025 End: 56-84-9518Ayvyr: 99-84-9685qjni 1 tablet by mouth every four hours as needed5 mg, oral, Every 4 hours PRN, pain mild (1-3), first line, Starting on Mela 06/22/25 at 0847, Recovery (only), When able to take oral medications., If ordered PRN for pain, nurse is permitted to administer this medication for higher pain scores based on patient preference? YesStart: 06-15-2025 End: 31-63-1817Zqvxd: 12-23-2024 End: 75-11-9913Ibumi: 11-23-2024 End: 74-01-8609Yjdln: 52-21-5591onfh 10 mg by mouth every four to six hours Oxycodone Active 10 MG PO EVERY 4-6 HOURS 140 June 28, 2024Start: 12-31-2023 End: 18-13-2245rtrv 10 mg by mouth every four to six hoursOxycodone Discontinued 10 MG PO EVERY 4-6 HOURS 120 March 24, 2024 April 10, 2024 6:02pmStart: 18-52-0453tmnp 10 mg by mouth four times daily as needed for pain10 mg, oral, 4 times daily PRN, pain severe (7-10), first line, Starting on Thu11/18/23 at 1423 Start: 76-58-2739zvcl 1 tablet by mouth every four hours as ointdt93 mg, oral, Every 4 hours PRN, pain severe (7-10), first line, Starting on Thu08/04/23 at 0035Start: 11-20-2017 End: 08-50-1276Vykte: 11-20-2017 End: 40-97-5715dmxm 10 mg by mouth twice dailyOxycodone Discontinued 10 MG PO Twice daily November 20, 2017 1:00am December 31, 2023 2:44pmStart: 64-21-7117lrfa 10 mg by mouth three times dailyOxycodone Active 10 MG PO Three times daily November 20, 2017 1:00amoxygen (O2) therapy (1 source)Start: 55-48-8012rjzgurohyp, Continuous PRN - O2/gases, other, Starting on Mela 01/05/25 at 0941, Recovery (only), Device: Nasal Cannula, Rate in liters per minute: Other, Custom Value: 1-6 LPM, Keep O2 Sat Above: 92%Ozempic (1 MG/DOSE) 2 MG/1.5ML (13 sources)Ozempic (1 MG/DOSE) 2 MG/1.5ML 1 mg as directed Subcutaneous weekly for 28 ActiveOzempic 0.25 mg or 0.5 mg (2 mg/3 mL) pen injector (8 sources)Start: 79-63-3767dqbjng 0.5 mg by subcutaneous injection every week Ozempic 0.25 mg or 0.5 mg (2 mg/3 mL) pen injector Inject 0.5 mg under the skin 1 (one) time per week. 08/23/2024 Activepantoprazole 40 mg delayed release oral tablet (20 sources)Proton Pump InhibitorStart: 39-81-4789Lcrrt: 08-26-2024 End: 28-35-0060soxp 1 tablet by mouth in the morningpantoprazole (ProtoNix) 40 MG EC tablet Take 40 mg by mouth in the morning and 40 mg before bedtime. 05/15/2025 ActiveStart: 03-31-2024 End: 91-43-1200jvnf 1 tablet by mouth in the morningpantoprazole (Protonix) 20 MG EC tablet Indications: Gastroesophageal reflux disease without esophagitis Take 1 tablet (20 mg) by mouth in the morning and 1 tablet (20 mg) before bedtime. Do not crush, chew, or split.. 180 tablet 1 12/01/2024 03/29/2025 Discontinued (Ineffective)Start: 03-24-2024 End: 49-65-4408Apdjt: 75-32-5053gmoz 40 mg by mouth once daily before breakfast 40 mg, oral, Daily before breakfast, First dose on Mela 11/19/23 at 0800 Do not crush, chew, or split.Start: 24-47-6047dgok 40 mg by mouth once daily before mg, oral, Daily before breakfast, First dose on Thu08/04/23 at 0700 Do not crush, chew, or split.perflutren lipid microspheres 1.3 mL in NaCl (PF) 0.9% 10 mL injection (DEFINITY) (2 sources)Start: 04-28-2022 End: 17-58-0588aikaznuzze lipid microspheres 1.3 mL in NaCl (PF) 0.9% 10 mL injection (DEFINITY)predniSONE 20 mg oral tablet (20 sources)Start: 36-44-9880jhyujkGVEC (Deltasone) 20 MG tablet Indications: COPD with acute exacerbation (HCC) Take two tablets (40 mg) daily for five days, then take one tablet (20 mg) daily for five days. Take with food. 15 tablet 08/22/2025 ActiveStart: 04-10-2025 End: 71-37-5695ypcy 1 tablet by mouth in the morningpredniSONE (Deltasone) 20 MG tablet Indications: COPD with acute exacerbation (CMS/HCC) Take 1 tablet (20 mg) by mouth in the morning and 1 tablet (20 mg) before bedtime. Do all this for 5 days. 10 tablet 04/10/2025 04/15/2025 ActiveStart: 03-01-2025 End: 76-75-1652coaa 1 tablet by mouth in the morningpredniSONE (Deltasone) 20 MG tablet Indications: Acute recurrent maxillary sinusitis Take 1 tablet (20 mg) by mouth in the morning and 1 tablet (20 mg) before bedtime. Do all this for 5 days. 10 tablet 03/01/2025 03/06/2025 ActiveStart: 12-01-2024 End: 80-56-6140sqgtrbXROA (Deltasone) 20 MG tablet Indications: Upper respiratory tract infection, unspecified type Take two tablets (40 mg) daily for five days, then take one tablet (20 mg) daily for five days. Take with food. 15 tablet 12/01/2024 12/20/2024 Discontinued (Therapy completed)Start: 07-20-2024 End: 09-62-5601dnad 1 tablet by mouth once dailypredniSONE (Deltasone) 10 MG tablet Indications: Cough in adult Take 1 tablet (10 mg) by mouth Daily for 5 days 5 tablet 07/20/2024 07/25/2024 ActiveStart: 05-30-2024 End: 89-77-6343Dsqyq: 05-30-2024 End: 43-11-5207Haawp: 04-10-2024 End: 10-15-8668Gewlq: 04-10-2024 End: 91-94-0054Ovhtxklfui Discontinued MG TABLET April 10, 2024 12:00am April 10, 2024 9:14pmStart: 02-22-2024 End: 69-61-9260Wpios: 10-20-2018 End: 63-06-9095Cdifb: 10-20-2018 End: 84-26-1337jysc 40 mg by mouth once dailyPrednisone Discontinued 40 MG PO Daily 10 October 20, 2018 1:00am October 25, 2018 1:01amprednisone Not-Taking/PRNprednisone Not-Takingprednisone Activeprochlorperazine 10 mg oral tablet (11 sources)PhenothiazineStart: 07-28-2025 End: 99-45-0340ypfw 1 tablet by mouth every eight hours as needed prochlorperazine (Compazine) 10 MG tablet Take 10 mg by mouth every 8 (eight) hours if needed 07/28/2025 ActiveStart: 58-63-9838tuofwjebyevksyip (Compazine) tablet 10 mgStart: 84-07-3111pursuqoxmcugqtdw (Compazine) injection 10 mgStart: 42-18-4097hcrt 10 mg by mouth every six hours as needed for ducdxj12 mg, oral, Every 6 hours PRN, nausea/vomiting, first line, Starting on Thu08/04/23 at 1300 Start: 51-80-6914vqpk 10 mg by mouth every six hours as needed for skbtye65 mg, intravenous, Every 6 hours PRN, nausea/vomiting, first line, administer if unable to tolerate PO, Starting on Thu08/04/23 at 1300Respiratory Therapy Supplies (Nebulizer Mask Adult/Tubing) misc (20 sources)Start: 01-17-2025 End: 37-15-8387Kijyhvhozwz Therapy Supplies (Nebulizer Mask Adult/Tubing) misc Indications: COPD with acute exacerbation (HCC) 1 Application every 6 (six) hours if needed (shortness of breath, wheezing) 2 each 2 01/17/2025 04/17/2025 ActiveStart: 01-17-2025 End: 24-19-8437Ezaimbzzerv Therapy Supplies (Nebulizer Mask Adult/Tubing) [facility] [place] Indications: COPD with acute exacerbation (CMS/HCC) 1 Application every 6 (six) hours if needed (shortness of breath, wheezing) 2 each 2 01/17/2025 04/17/2025 ActiveRespiratory Therapy Supplies (Nebulizer/Tubing/Mouthpiece) kit (20 sources)Start: 58-23-4585Qrepfhgpqyb Therapy Supplies (Nebulizer/Tubing/Mouthpiece) kit Indications: Chronic obstructive pulmonary disease, unspecified COPD type (HCC) 1 kit See administration instructions 1 kit 11 06/09/2025 ActiveStart: 06-09-2025 End: 60-68-0520Blvxqasvuha Therapy Supplies (Nebulizer/Tubing/Mouthpiece) kit Indications: Chronic obstructive pulmonary disease, unspecified COPD type (HCC) 1 kit See administration instructions 1 kit 11 06/09/2025 07/09/2025 Active0.25 mg, 0.5 mg dose 1.5 ml semaglutide 1.34 mg/ml pen injector (20 sources)Start: 77-96-6190tuozostgazk (OZEMPIC) 0.25 mg or 0.5 mg(2 mg/1.5 mL) pen injector Semaglutide (Ozempic) 0.25 mg or 0.5 mg(2 mg/1.5 mL) Pen Injector Active 0.5 MG SUBCUT every week September 24, 2020 12:34pm 09/24/2020 ActiveStart: 09-24-2020 End: 87-43-0784Gemmb: 52-48-7275Evfubxcctyu (Ozempic) 0.25 mg or 0.5 mg(2 mg/1.5 mL) Pen Injector Active 0.5 MG SUBCUT every week September 24, 2020 1:00am Comment on above:Semaglutide (Ozempic) 0.25 mg or 0.5 mg(2 mg/1.5 mL) Pen Injector Active 0.5 MG SUBCUT every week September 24, 2020 12:34pmSemaglutide (20 sources)Start: 79-52-8236Awqwz: 05-30-2024 End: 34-41-7426Pbchk: 77-49-1069Guvwvbmurkq (Ozempic) 0.25 mg or 0.5 mg (2 mg/3 mL) pen injector Active MG SUBCUT May 30, 2024 12:00amsemaglutide (Ozempic) 0.25 mg or 0.5 mg (2 mg/3 mL) pen injector (15 sources)inject 0.5 mg by subcutaneous injection every weeksemaglutide (Ozempic) 0.25 mg or 0.5 mg (2 mg/3 mL) pen injector Inject 0.5 mg under the skin 1 (one) time per week. On Fridays Activeinject 0.5 mg by subcutaneous injection every weeksemaglutide (Ozempic) 0.25 mg or 0.5 mg (2 mg/3 mL) pen injector Inject 0.5 mg under the skin 1 (one) time per week. On Fridays 0 Active inject 0.5 mg by subcutaneous injection every weeksemaglutide (Ozempic) 0.25 mg or 0.5 mg (2 mg/3 mL) pen injector Inject 0.5 mg under the skin 1 (one) time per week. On Fridays 0 Suspendedinject 0.5 mg by subcutaneous injection every week semaglutide (Ozempic) 0.25 mg or 0.5 mg (2 mg/3 mL) pen injector Inject 0.5 mg under the skin 1 (one) time per week. On Thursday 0 ActiveSemaglutide,0.25 or 0.5MG/DOS, (Ozempic, 0.25 or 0.5 MG/DOSE,) 2 MG/3ML solution pen-injector (20 sources)Start: 14-82-3364Hthqtzqzchm,0.25 or 0.5MG/DOS, (Ozempic, 0.25 or 0.5 MG/DOSE,) 2 MG/3ML solution pen-injector Indications: Type 2 diabetes mellitus with other specified complication, without long-term current use of insulin (HCC) , Class 1 obesity due to excess calories with serious comorbidity and body mass index(BMI) of 33.0 to 33.9 in adult Inject 0.5 mg under the skin 1 (one) time per week 9 mL 3 5ActiveStart: 03-23-2025 End: 75-01-5759Nolbfwpvsuj,0.25 or 0.5MG/DOS, (Ozempic, 0.25 or 0.5 MG/DOSE,) 2 MG/3ML solution pen-injector Indications: Type 2 diabetes mellitus with other specified complication, without long-term current use ofinsulin (HCC) , Class 1 obesity due to excess calories with serious comorbidity and body mass index(BMI) of 33.0 to 33.9 in adult Inject 0.5 mg under the skin 1 (one) time per week 9 mL 3 ActiveStart: 03-23-2025 End: 75-00-5199Wcqpmcuhksq,0.25 or 0.5MG/DOS, (Ozempic, 0.25 or 0.5 MG/DOSE,) 2 MG/3ML solution pen-injector Indications: Type 2 diabetes mellitus with other specified complication, without long-term current use ofinsulin , Class 1 obesity due to excess calories with serious comorbidity and body mass index (BMI)of 33.0 to 33.9 in adult Inject 0.5 mg under the skin 1 (one) time per week 9 mL 3 03/23/2025 06/21/2025 ActiveStart: 80-80-8727Vmfaahxycav,0.25 or 0.5MG/DOS, (Ozempic, 0.25 or 0.5 MG/DOSE,) 2 MG/3ML solution pen-injector Indica tions: Type 2 diabetes mellitus with other specified complication, without long- term current use ofinsulin , Class 1 obesity due to excess calories with serious comorbidity and body mass index (BMI)of 33.0 to 33.9 in adult Inject 0.5 mg under the skin 1 (one) time per week 9 mL 12/07/2024 ActiveStart: 12-07-2024 End: 55-33-3136Sipqpqbqgdj,0.25 or 0.5MG/DOS, (Ozempic, 0.25 or 0.5 MG/DOSE,) 2 MG/3ML solution pen-injector Indications: Type 2 diabetes mellitus with other specified complication, without long-term current use ofinsulin , Class 1 obesity due to excess calories with serious comorbidity and body mass index (BMI)of 33.0 to 33.9 in adult Inject 0.5 mg under the skin 1 (one) time per week 9 mL 12/07/2024 03/07/2025 ActiveStart: 12-07-2024 End: 66-30-7526Dzsbmcnphic,0.25 or 0.5MG/DOS, (Ozempic, 0.25 or 0.5 MG/DOSE,) 2 MG/3ML solution pen-injector Indications: Type 2 diabetes mellitus with other specified complication, without long-term current use ofinsulin (CMS/HCC) , Class 1 obesity due to excess calories with serious comorbidity and body mass in dex (BMI) of 33.0 to 33.9 in adult Inject 0.5 mg under the skin 1 (one) time per week 9 mL 12/07/2024 03/07/2025 ActiveStart: 09-14-2024 End: 64-33-6640Mnmbundyemf,0.25 or 0.5MG/DOS, (Ozempic, 0.25 or 0.5 MG/DOSE,) 2 MG/3ML solution pen-injector Indications: Type 2 diabetes mellitus with other specified complication, without long-term current use ofinsulin (CMS/HCC) , Class 1 obesity due to excess calories with serious comorbidity and body mass in dex (BMI) of 33.0 to 33.9 in adult Inject 0.5 mg under the skin 1 (one) time per week 3 mL 2 09/14/2024 12/20/2024 Discontinued (Therapy completed)Start: 36-94-8942Okdalqrbukb,0.25 or 0.5MG/DOS, (Ozempic, 0.25 or 0.5 MG/DOSE,) 2 MG/3ML solution pen-injector Indications: Type 2 diabetes mellitus with other specified complication, without long-term current use ofinsulin (CMS/HCC) , Class 1 obesity due to excess calories with serious comorbidity and body mass in dex (BMI) of 33.0 to 33.9 in adult Inject 0.5 mg under the skin 1 (one) time per week 3 mL 2 09/14/2024 ActiveStart: 09-14-2024 End: 40-09-1980Puidbegyfgd,0.25 or 0.5MG/DOS, (Ozempic, 0.25 or 0.5 MG/DOSE,) 2 MG/3ML solution pen-injector Indications: Type 2 diabetes mellitus with other specified complication, without long-term current use ofinsulin (CMS/HCC) , Class 1 obesity due to excess calories with serious comorbidity and body mass in dex (BMI) of 33.0 to 33.9 in adult Inject 0.5 mg under the skin 1 (one) time per week 3 mL 2 09/14/2024 10/14/2024 ActiveStart: 09-05-2024 End: 42-62-3980Gobkrqhrsdw,0.25 or 0.5MG/DOS, (Ozempic, 0.25 or 0.5 MG/DOSE,) 2 MG/3ML solution pen-injector Indications: Type 2 diabetes mellitus with other specified complication, without long-term current use ofinsulin (CMS/HCC) , Class 1 obesity due to excess calories with serious comorbidity and body mass in dex (BMI) of 33.0 to 33.9 in adult Inject 0.5 mg under the skin 1 (one) time per week Do not start before September 05, 2024. 3 mL 09/05/2024 10/05/2024 Active Start: 08-23-2024 End: 55-77-2996Pkmbmhxfqgo,0.25 or 0.5MG/DOS, (Ozempic, 0.25 or 0.5 MG/DOSE,) 2 MG/3ML solution pen-injector Indications: Type 2 diabetes mellitus with other specified complication, without long-term current use ofinsulin (CMS/HCC) , Class 1 obesity due to excess calories with serious comorbidity and body mass in dex (BMI) of 33.0 to 33.9 in adult Inject 0.25 mg under the skin 1 (one) time per week for 14 days 3 mL 08/23/2024 09/06/2024 Activesennosides, snf 8.6 mg oral tablet (14 sources)Start: 15-69-7097Sthfr: 08-08-2023 End: 23-00-5490teuy 1 tablet by mouth twice daily8.6 mg (1 tablet), oral, 2 times daily, First dose on 08/08/23 at 2100Start: 73-15-1270vkxc 1 tablet by mouth once daily as needed for qzocdihisqey63.2 mg (2 tablet), oral, Nightly PRN, constipation, first line, Starting on Thu08/04/23 at 1104simvastatin 20 mg oral tablet (6 sources)HMG-CoA Reductase InhibitorStart: 08-11-2025 End: 72-39-2571mtvw 1 tablet by mouth at bedtimesimvastatin (Zocor) 20 MG tablet Indications: Hyperlipidemia, group D Take 1 tablet (20 mg) by mouth at bedtime 90 tablet 2 08/11/2025 05/08/2026 Activesodium chloride 9 mg/ml inhalation solution (20 sources)Start: 06-27-2024 End: 88-07-8594Rxhzh: 42-80-3741Pcdbt: 06-27-2024 End: 23-38-2961bcvu 1 mL by inhalation every twelve hoursSodium Chloride Active 3 ML INHALATION Every 12 hours 180 June 27, 2024 2:55pmStart: 06-27-2024 take 1 dose by inhalation three times dailySodium Chloride Active 3 ML INHALATION Three times daily 90 June 27, 2024 12:00am On Hold: changing doseStart: 29-98-2926ebbbpr chloride 0.9 % bolus 500 mLStart: 08-11-2023 End: 01-94-0594726 mL, intravenous, at 250 mL/hr, Administer over 2 Hours, Once, On Thu08/11/23 at 1400, For 1 doseStart: 46-93-7415978 mL, intravenous, at 1,000 mL/hr, Administer over 0.5 Hours, As needed, Moderate or severe hypers ensitivity reaction, Starting on Thu08/04/23 at 0959 ADMINISTRATION PRECAUTION Administer for SBP LESS THAN 90 mmHg. Use D5W if Liposomal DOXOrubicin or OXALIplatin was previously infusing.Start: 04-28-2022 End: 31-89-8958zmhfms chloride 0.9 % (flush) 10 mL (BD POSIFLUSH)spironolactone 50 mg oral tablet (20 sources)Aldosterone AntagonistStart: 07-11-2024 End: 76-29-8036izpj 1 tablet by mouth once dailyspironolactone (Aldactone) 50 MG tablet Indications: Chronic obstructive pulmonary disease, unspecified COPD type (HCC) Take 1 tablet (50 mg) by mouth Daily 90 tablet 3 12/14/2024 12/09/2025 ActiveStart: 21-33-7724zccz 1 tablet by mouth once daily spironolactone (Aldactone) 50 MG tablet Indications: Chronic obstructive pulmonary disease, unspecified COPD type (CMS/HCC) Take 1 tablet (50 mg) by mouth Daily 30 tablet 1 06/16/2024 ActiveStart: 04-19-2024 End: 15-63-5585jshuczefbvjlrysa 800 mg / trimethoprim 160 mg oral tablet (20 sources)Dihydrofolate Reductase Inhibitor Antibacterial, Sulfonamide AntimicrobialStart: 11-22-2023 End: 59-87-6911ksyx 1 tablet by mouth once dailysulfamethoxazole-trimethoprim (Bactrim DS) 800-160 mg tablet Indications: Multiple myeloma, remission status unspecified (Multi) Take 1 tablet by mouth once a day on Thursday, Thursday, and Thursday. 12tablet 1 05/11/2024 ActiveStart: 22-99-9712nekf 1 tablet by mouth once sulfamethoxazole-trimethoprim (Bactrim DS) 800-160 MG per tablet TAKE 1 TABLET BY MOUTH EVERY THURSDAY, THURSDAY AND Thursday01/11/2024 ActiveStart: 10-21-2023 End: 29-37-6242Afbcm: 08-12-2023 End: 17-34-9572poya 1 tablet by mouth once dailysulfamethoxazole-trimethoprim (Bactrim DS) 800-160 mg tablet Indications: Multiple myeloma, remission status unspecified (CMS/HCC) Take 1 tablet by mouth once a day on Thursday, Thursday, and Thursday. 12 tablet 0 09/09/2023 ActiveStart: 08-12-2023 End: 77-72-7074Yifmflrcnjt-cqyv 30 MG/3ML solution (20 sources)Start: 28-53-4802Cwaclosnhjb-cqyv 30 MG/3ML solution 03/21/2024 ActivetraZODone hydrochloride 50 mg oral tablet (2 sources)Serotonin Reuptake InhibitorStart: 05-50-7388Nogfagu B-12 1000 MCG (10 sources)take 1 tablet under the tongue once dailyVitamin B-12 1000 MCG 1 tablet under the tongue and allow to dissolve Sublingual Once a day Active vitamin b12 1 mg oral tablet (20 sources)Vitamin M90Xuthn: 09-01-4689rpqx 1000 ug by mouth once daily1,000 mcg, oral, Daily, First dose on Thu11/18/23 at 1430Start: 04-78-3745mmtf 1000 ug by mouth once daily1,000 mcg, oral, Daily, First dose on Thu08/04/23 at 1115 Start: 90-07-0131cuqb 1 tablet under the tongue once dailyCyanocobalamin (Vitamin B-12) 1000 MCG sublingual tablet DISSOLVE 1 TABLET UNDER THE TONGUE ONCE A DAY 03/03/2023 ActiveStart: 68-35-6122Wvndv: 10-29-2020 End: 68-67-0875Rqliz: 09-15-2018 End: 77-52-1604hnyp 1 tablet by mouth every twenty-four hoursVitamin B-12 1000 MCG 1 tablet under the tongue and allow to dissolve Sublingual Once a day Active Comment on above:1,000 mcg.Vitamin D (1 source)Start: 49-01-4335Vcrkscr D 50,000 International_Unit, Oral, Daily Start Date: 12/25/20 Status: Ordered Repeat number:1 (20 sources)Start: 82-14-0350Nwuqb: 67-67-5259Alwbe: 46-58-3277Hqbhu: 09-12-2023 End: 80-98-8237Krhol: 01-28-2023 End: 56-95-7098Lakjb: 16-25-6097Zwmie: 12-24-2021 End: 66-22-9277Ujafa: 07-26-2021 End: 94-33-4839Psfkg: 70-45-1827Exzit: 11-24-2017 End: 82-55-6640Hayqu: 11-24-2017 End: 36-78-3034Diwev: 36-37-9451Rwsjl: 11-20-2017 End: 69-09-1697Mhcwe: 11-20-2017 (1 source) Completed/Discontinued Medications MedicationDrug Class(es)DatesSig (Normalized)Sig (Original)acetaminophen 325 mg oral tablet (7 sources)Start: 11-22-2023 End: 93-35-8991wwudqqtlejllo (Tylenol) tablet 650 mgStart: 11-20-2023 End: 89-04-8381ekuwrjgacjuao (Tylenol) tablet 650 mgStart: 11-18-2023 End: 76-78-0139cdtrhrkdcidad (Tylenol) tablet 650 mgStart: 08-09-2023 End: 49-63-8144tpcu 650 mg by mouth gtgj471 mg, oral, Once, On 08/09/23 at 1530, For 1 doseStart: 08-06-2023 End: 72-30-0454lzmz 650 mg by mouth rrih920 mg, oral, Once, On Mela 08/06/23 at 1500, For 1 doseStart: 01-97-9900nuqq 650 mg by mouth every six hours as needed 650 mg, oral, Every 6 hours PRN, headaches, Starting on Mela 08/06/23 at 1023 If ordered PRN for pain, nurse is permitted to administer this medication for higher pain scores based on patient preference? YesStart: 08-04-2023 End: 65-42-4192hcas 650 mg by mouth zkpv155 mg, oral, Once, On Tu08/04/23 at 1300, For 1 doseacyclovir 400 mg oral tablet (20 sources)Herpesvirus Nucleoside Analog DNA Polymerase Inhibitor, Herpes Simplex Virus Nucleoside Analog DNA Polymerase Inhibitor, Herpes Zoster Virus Nucleoside Analog DNA Polymerase InhibitorStart: 04-02-2020 End: 15-98-2164rnpbnulv hydroxide 40 mg/ml / magnesium hydroxide 40 mg/ml / simethicone 4 mg/ml oral suspension (1 source)Start: 11-25-2023 End: 30-22-9893wens-mag hydroxide-simeth (Mylanta) 200-200-20 mg/5 mL oral suspension 10 mLamoxicillin 875 mg / clavulanate 125 mg oral tablet (20 sources)Penicillin-class AntibacterialStart: 11-26-2022 End: 85-33-4865Cjtud: 11-26-2022 End: 15-90-7267uuvw 1 tablet by mouth twice dailyAmoxicillin-Pot Clavulanate Discontinued 1 TAB PO Twice daily December 26, 2022 11:01am January 28, 2023 8:23amascorbic acid 1000 mg oral tablet (10 sources)Vitamin C End: 02-28-2260Czborcsv Acid (vitamin C) 1000 MG tablet 1 (one) time each day at the same time. 08/23/2024 Discontinued (Therapy completed)30 ml bupivacaine hydrochloride 5 mg/ml injection (1 source)Amide Local AnestheticStart: 06-22-2025 End: 48-66-7573Yuch PRN Procedure, Starting on Mela 06/22/25 at 0840, For 1 dose, Intraprocedurecefepime 2000 mg injection (20 sources)Cephalosporin AntibacterialStart: 04-15-2024 End: 39-93-8918gyrzfgntenu 100 mg oral tablet (12 sources)Cephalosporin AntibacterialStart: 05-31-2025 End: 01-03-7246ujzcxqpqioeoetv hydrochloride 5 mg oral tablet (20 sources)Muscle RelaxantStart: 02-23-2023 End: 48-90-5955hclbzgwkifknpyi (Flexeril) 5 MG tablet 1 (one) time each day at the same time. 02/23/2023 03/01/2025 Discontinued (Ineffective)Start: 10-20-2018 End: 05-35-2826moqiwrdfaudal 4 mg oral tablet (20 sources)CorticosteroidStart: 11-22-2023 End: 52-14-2268cfeCRHLPvwlqo (Decadron) tablet 16 mgStart: 11-20-2023 End: 54-01-7559chjQKDHUucdhc (Decadron) tablet 16 mgStart: 11-18-2023 End: 32-51-1343zttIKADNkiurw (Decadron) tablet 16 mgStart: 08-09-2023 End: 18-21-5095sopa 16 mg by mouth once16 mg, oral, Once, On Thu08/09/23 at 1530, For 1 doseStart: 08-06-2023 End: 43-75-7639kjyp 16 mg by mouth once16 mg, oral, Once, On Thu08/06/23 at 1500, For 1 doseStart: 08-04-2023 End: 58-76-4834aeap 16 mg by mouth once16 mg, oral, Once, On Thu08/04/23 at 1300, For 1 doseStart: 01-28-2023 End: 93-04-4553Nfyemxklwjioc Discontinued 20 MG PO As Directed January 28, 2023 8:27am January 21, 2024 11:17am take 5 tablest by mouth at once when directed related to chemotherapy scheduleStart: 07-14-2022 End: 02-10-3130xsus 40 mg by mouth onceDexamethasone Discontinued 40 MG PO Once 40 August 15, 2022 12:00am January 09, 2023 11:42amStart: 04-02-2020 End: 32-04-9218Ekcsp: 04-02-2020 End: 22-96-0058cfln 20 mg by mouth onceDexamethasone Discontinued 20 MG PO Once 60 90 March 26, 2022 9:22am January 28, 2023 8:27amdextromethorphan hydrobromide 1.5 mg/ml / pyrilamine maleate 1.5 mg/ml oral solution (6 sources)Uncompetitive V-ipbuic-R-aspartate Receptor Antagonist, Sigma-1 AgonistStart: 12-01-2024 End: 71-15-8212ctsl 5 mL by mouth every six hoursDextromethorphan-Pyrilamine ([place] DM) 7.5-7.5 MG/5ML liquid Indications: Upper respiratory tract i nfection, unspecified type Take 5 mL by mouth every 6 (six) hours if needed (cough) for up to 7 days 140 mL 12/01/2024 12/20/2024 Discontinued (Therapy completed)diazePAM 5 mg oral tablet (20 sources)BenzodiazepineStart: 09-15-2024 End: 44-80-7145Dgvyj: 05-21-2020 End: 54-97-2957Hiwbt: 05-21-2020 End: 79-85-4078Wvaiq: 05-21-2020 End: 33-72-1009Jxgkhmvq (Valium) 5 mg Tablet Discontinued 5 MG PO As Directed 2 July 17, 2021 3:01pm January 28, 2023 8:28am take 30 minutes before MRI, may repeat X1 five minutes before MRI if needed. 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 diphenhydrAMINE hydrochloride 50 mg oral capsule (8 sources)Histamine-1 Receptor AntagonistStart: 11-22-2023 End: 79-34-1850owttinknssMLAXM (BENADryl) capsule 50 mgStart: 11-20-2023 End: 84-81-9543vklrwcppyxSEZMB (BENADryl) capsule 50 mgStart: 11-18-2023 End: 98-61-7002hjrthpdmwxRVKYT (BENADryl) capsule 50 mgStart: 11-18-2023 diphenhydrAMINE (BENADryl) injection 50 mgStart: 08-09-2023 End: 87-25-6839ioyn 50 mg by mouth once50 mg, oral, Once, On 08/09/23 at 1530, For 1 doseStart: 08-06-2023 End: 76-32-3113qlal 50 mg by mouth once50 mg, oral, Once, On Mela 08/06/23 at 1500, For 1 doseStart: 08-04-2023 End: 66-37-1361gutz 50 mg by mouth once50 mg, oral, Once, On Thu08/04/23 at 1300, For 1 doseStart: 14-76-444130 mg, intravenous, Administer over 2 Minutes, As needed, Give first for moderate or severe hypersensitivity reaction, Starting on Thu08/04/23 at 0959, For 1 doseDULoxetine 60 mg delayed release oral capsule (20 sources)Serotonin and Norepinephrine Reuptake InhibitorStart: 25-02-3226pval 60 mg by mouth once dailyCymbalta 60 mg, Oral, Daily Start Date: 12/25/20 Status: Ordered Repeat number: 1Start: 11-20-2017 End: 15-96-3139leda 1 capsule by mouth once dailyDULoxetine (Cymbalta) [address] capsule Indications: Fibromyalgia Take 1 capsule (60 mg) by mouth Daily Do not crush or chew. 90 capsule 3 04/28/2024 08/22/2025 Discontinued (Therapy completed)famotidine 20 mg oral tablet (12 sources)Histamine-2 Receptor AntagonistStart: 08-10-2024 End: 66-07-5807bsuc 1 tablet by mouth in the morningfamotidine (Pepcid) 20 MG tablet Indications: Gastroesophageal reflux disease without esophagitis Take 1 tablet (20 mg) by mouth in the morning and 1 tablet (20 mg) before bedtime. 180 tablet 2 08/10/2024 08/23/2024 Discontinued (Therapy completed)Start: 06-14-2024 End: 53-17-0975dfgl 1 tablet by mouth in the morningfamotidine (Pepcid) 20 MG tablet Indications: Gastroesophageal reflux disease without esophagitis Take 1 tablet (20 mg) by mouth in the morning and 1 tablet (20 mg) before bedtime. 60 tablet 06/14/2024 ActiveStart: 50-63-1085koqjqlodqh PF (Pepcid) injection 20 mg Start: 44-31-820118 mg, intravenous, Administer over 2 Minutes, As needed, Give third for moderate or severe hypersensitivity reaction, Starting on Thu08/04/23 at 0959, For 1 doseferrous sulfate 325 mg oral tablet (20 sources)Start: 11-20-2017 End: 37-71-1152Plsfd: 11-20-2017 End: 69-33-4338vnjn 1 tablet by mouth twice dailyFerrous Sulfate Discontinued 1 TAB PO Twice daily November 20, 2017 1:00am November 24, 2017 3:03pmfolic acid 1 mg / vitamin b12 0.5 mg oral tablet (20 sources)Vitamin J91Avbyl: 03-28-2021 End: 86-48-7910Dqfdp: 03-28-2021 End: 46-31-0085bgek 1 tablet by mouth once dailyVitamin C60-Irsdp Acid Discontinued 1 TAB PO Daily March 28, 2021 12:00am April 10, 2024 6:01pm gabapentin 400 mg oral capsule (20 sources)Anti-epileptic AgentStart: 11-18-2023 End: 62-32-0884auhf 1 capsule by mouth once mg, oral, Nightly, First dose on Thu11/18/23 at 2100 Capsules may be opened and sprinkled on food (eg, applesauce, orange juice, puddingStart: 02-24-2023 End: 03-08-2146Lojci: 09-04-2022 End: 84-04-8380uwpbukubax (Neurontin) 400 MG capsule 2 (two) times a day 09/04/2022 ActiveStart: 09-04-2022 End: 91-10-9883yjzq 1-2 capsules by mouth twice dailygabapentin (Neurontin) 100 mg capsule Take 1-2 capsules (100-200 mg) by mouth 2 times a day. 09/04/2022 02/23/2024 Discontinued (Med List Cleanup)Start: 72-26-0305pkjr 4 capsules by mouth three times daily as neededgabapentin (Neurontin) 100 mg capsule Take 4 capsules (400 mg) by mouth 3 times a day as needed (Neuropathy). 0 09/04/2022 ActiveStart: 07-26-2021 End: 16-15-5250kotn 600 mg by mouth three times dailyGabapentin Discontinued 600 MG PO Three times daily July 26, 2021 12:00am January 28, 2023 8:29am Start: 20-06-1375inqq 1 capsule by mouth three times dailygabapentin (NEURONTIN) 100 mg capsule TAKE ONE CAPSULE BY MOUTH THREE TIMES A DAY FOR 15 DAYS 2020 ActiveComment on above:TAKE ONE CAPSULE BY MOUTH THREE TIMES A DAY FOR 15 DAYSInsulin Aspart U-100 (Novolog Flexpen U-100 Insulin) 100 unit/mL (3 mL) Insulin Pen (14 sources)Start: 01-28-2023 End: 08-96-3623Xoolkua Aspart U-100 (Novolog Flexpen U-100 Insulin) 100 unit/mL (3 mL) Insulin Pen Discontinued 25UNIT SUBCUT Daily January 28, 2023 12:00am April 10, 2024 9:15pm INJECT 25 UNITS UNDER THE SKIN ON CHEMO DAYS AFTER CHEMO Start: 14-01-3024Baelker Aspart U-100 (Novolog Flexpen U-100 Insulin) 100 unit/mL (3 mL) Insulin Pen Active 25 UNIT SUBCUT Daily January 27, 2023 11:00pm INJECT 25 UNITS UNDER THE SKIN ON CHEMO DAYS AFTER CHEMOStart: 01-34-5430Dhbbict Aspart U-100 (Novolog Flexpen U-100 Insulin) 100 unit/mL (3 mL) Insulin Pen Active 25 UNIT SUBCUT Daily January 28, 2023 12:00am INJECT 25 UNITS UNDER THE SKIN ON CHEMO DAYS AFTER CHEMO3 ml insulin aspart, human 100 unt/ml pen injector (17 sources)Insulin AnalogStart: 01-28-2023 End: 83-02-7373Enajl: 98-49-7461VWWJXZD FLEXPEN U-100 INSULIN 100 unit/mL (3 mL) 04/28/2022 Active3 ml insulin detemir 100 unt/ml pen injector (20 sources)Insulin AnalogStart: 11-20-2017 End: 43-52-9124Ijauw: 11-20-2017 End: 29-57-6657Heoffjk Detemir U-100 Discontinued 22 UNITS SUBCUT Daily November 20, 2017 1:00am September 12, 2023 9:37am Inject 22 unites under the skin once daily only if blood sugar is greater than 140Start: 11-20-2017 End: 86-88-1610Mzciwgz Detemir U-100 Discontinued 22 UNITS SUBCUT Daily November 20, 2017 12:00am September 12, 2023 8:37am Inject 22 unites under the skin once daily only if blood sugar is greater than 140Start: 60-41-7912Bxaxtua Detemir U-100 Active 22 UNITS SUBCUT Daily November 20, 2017 1:00am Inject 22 unites underthe skin once daily only if blood sugar is greater than 140Start: 05-99-8143cnqfli 26 [IU] by subcutaneous injection once daily at bedtimeInsulin Detemir U-100 Active 26 UNITS SUBCUT Daily at bedtime November 20, 2017 1:00am Start: 36-38-2385jfqmsj 26 [IU] by subcutaneous injection once daily at bedtime Insulin Detemir U-100 Active 26 UNITS SUBCUT Daily at bedtime November 20, 2017 12:00amLevemir FlexTouch 100 UNIT/ML 22 units at bedtime Subcutaneous Daily Not-TakingComment on above:INJECT 22 UNITS SUBCUTANEOUSLY ONCE DAILY, INCREASE BY 2 UNITS FOR GLUCOSE LEVELS GREATER THAN 140insulin isophane, human 100 unt/ml injectable suspension (20 sources)Start: 05-21-2020 End: 33-85-5770Byvgn: 37-69-6218AodiVIC N FlexPen 100 UNIT/ML 20 units as tolerated Subcutaneous on chemo days after chemo May, Activelactulose 667 mg/ml oral solution (20 sources)Osmotic LaxativeStart: 04-09-2022 End: 97-03-3221uyho 15 mL by mouth once daily as neededLactulose 20 GM/30ML 15 mL as needed Orally Once a day Not-Taking/PRNtake 15 mL by mouth once daily as neededLactulose 20 GM/30ML 15 mL as needed Orally Once a day Not-Takingtake 15 mL by mouth once daily as neededLactulose 20 GM/30ML 15 mL as needed Orally Once a day Not-Takinglansoprazole 30 mg delayed release oral capsule (20 sources)Proton Pump InhibitorStart: 03-29-2025 End: 04-84-1401rjxe 1 capsule by mouth once dailylansoprazole (Prevacid) [address] capsule Indications: Gastroesophageal reflux disease without esophagitis Take 1 capsule (30 mg) by mouth Daily Do not crush or chew. 30 capsule 1 03/29/2025 08/22/2025 Discontinued (Therapy completed)lenalidomide 5 mg oral capsule (20 sources)Thalidomide AnalogStart: 08-30-2021 End: 11-34-4363Qogjw: 08-30-2021 End: 80-08-6420Dtauroj FlexTouch 100 UNIT/ML (6 sources)Levemir FlexTouch 100 UNIT/ML 22 units at bedtime Subcutaneous Daily Not-Taking/PRNLevemir FlexTouch 100 UNIT/ML 22 units at bedtime Subcutaneous Daily Not-TakinglevoFLOXacin 750 mg oral tablet (20 sources)Quinolone AntimicrobialStart: 05-30-2024 End: 97-18-1861Qlxco: 02-22-2024 End: 06-53-4962ddsf 1 tablet by mouth once dailylevoFLOXacin (Levaquin) 750 mg tablet Take 1 tablet (750 mg) by mouth once daily. 02/22/2024 02/29/2024 Active Start: 11-26-2022 End: ml lidocaine hydrochloride 10 mg/ml injection (13 sources)Antiarrhythmic, Amide Local AnestheticStart: 06-22-2025 End: 15-60-2999wqnphfitnobs, Once PRN Procedure, Starting on Mela 06/22/25 at 0829, For 1 dose, IntraprocedureStart: 00-11-0818ymimuuqqgr 5 mg oral tablet (20 sources)Angiotensin Converting Enzyme InhibitorStart: 04-28-2019 End: 93-55-9884Egumkfb on above:Take 1 tablet by mouth once daily.loratadine 10 mg oral tablet (20 sources)Start: 12-26-2022 End: 27-61-1835TPAqxzkho 0.5 mg oral tablet (19 sources)BenzodiazepineStart: 09-21-2024 End: ml magnesium sulfate 40 mg/ml injection (5 sources)Start: 11-23-2023 End: 17-48-4699frrucqaow sulfate IV 2 gStart: 08-11-2023 End: g, intravenous, at 25 mL/hr, Administer over 4 Hours, Once, On 08/11/23 at 0445, For 1 doseStart: 08-08-2023 End: g, intravenous, at 25 mL/hr, Administer over 4 Hours, Once, On 08/08/23 at 1930, For 1 doseStart: 08-06-2023 End: g, intravenous, at 25 mL/hr, Administer over 4 Hours, Once, On Mela 08/06/23 at 0530, For 1 doseStart: 08-04-2023 End: g, intravenous, at 25 mL/hr, Administer over 4 Hours, Once, On Thu08/04/23 at 0900, For 1 doseNirmatrelvir-Ritonavir (13 sources)Start: 09-12-2023 End: 96-85-3599Tfnbm: 47-19-8253dcvq 1 tablet by mouth onceNirmatrelvir- Ritonavir (Paxlovid (Eua)) 300 mg (150 mg x 2)-100 mg tablets,dose pack Active 0 PO .COMPLEX September 12, 2023 12:00am orally per package directions Nirmatrelvir-Ritonavir (Paxlovid (Eua)) 300 mg (150 mg x 2)-100 mg tablets,dose pack (10 sources)Start: 09-12-2023 End: 32-25-6602swkr 1 tablet by mouth onceNirmatrelvir-Ritonavir (Paxlovid (Eua)) 300 mg (150 mg x 2)-100 mg tablets,dose pack Discontinued 0PO .COMPLEX September 12, 2023 1:00am October 20, 2023 10:52am orally per package directionsStart: 09-12-2023 End: 36-46-7055kuop 1 tablet by mouth onceNirmatrelvir-Ritonavir (Paxlovid (Eua)) 300 mg (150 mg x 2)-100 mg tablets,dose pack Discontinued 0PO .COMPLEX September 12, 2023 12:00am October 20, 2023 9:52am orally per package directionsOLANZapine 2.5 mg oral tablet (20 sources)Atypical AntipsychoticStart: 01-21-2024 End: 99-16-6295Rgbibjgvob Magnesium (Prilosec Otc) 20 mg Tablet,Delayed Release (Dr/Ec) (19 sources)Start: 11-24-2017 End: 19-37-0826Fqlbcjyoqc Magnesium (Prilosec Otc) 20 mg Tablet,Delayed Release (Dr/Ec) Discontinued 40 MG PO Daily November 24, 2017 1:00am March 24, 2024 2:01pmStart: 77-63-5961Eydjksqrqw Magnesium (Prilosec Otc) 20 mg Tablet,Delayed Release (Dr/Ec) Active 40 MG PO Daily November 24, 2017 12:00amStart: 55-02-3369Gjjpodjolj Magnesium (Prilosec Otc) 20 mg Tablet,Delayed Release (Dr/Ec) Active 40 MG PO Daily November 24, 2017 1:00amondansetron 8 mg disintegrating oral tablet (20 sources)Serotonin-3 Receptor AntagonistStart: 04-10-2024 End: 51-80-9621Xoxqs: 06-18-2021 End: 84-90-3225nnbi 1 tablet by mouth every eight hours as needed for nausea and vomitingondansetron ODT (Zofran-ODT) 8 MG disintegrating tablet Take 8 mg by mouth every 8 (eight) hours ifneeded for nausea or vomiting. 05/10/2023 Active Start: 06-18-2021 End: 51-32-2069kxqt 8 mg by mouth three times dailyOndansetron Discontinued 8 MG PO Three times daily January 28, 2023 8:36am February 10, 2023 2:32pmStart: 04-02-2020 End: 65-92-1574otprbsmhoqjmhex hydrochloride 100 mg oral tablet (20 sources)Start: 01-29-2023 End: 71-61-3857wztz 1 tablet by mouth every eight hoursPhenazopyridine HCl 200 MG 1 tablet after meals Orally Three times a day Activetake 1 tablet by mouth every eight hoursPhenazopyridine HCl 200 MG 1 tablet after meals Orally Three times a day Activepiperacillin 3000 mg / tazobactam 375 mg injection (2 sources)Penicillin-class Antibacterial, beta Lactamase InhibitorStart: 08-08-2023 End: 88-57-7780nith 3.375 g intravenously every six hours3.375 g, intravenous, at 100 mL/hr, Administer over 0.5 Hours, Every 6 hours, First dose on Mon 08/10 at 2215 premix bagpolyethylene glycol 3350 16872 mg powder for oral solution (20 sources)Osmotic LaxativeStart: 08-04-2023 End: 24-78-0407tareqozchdwa 2 mg oral capsule (20 sources)Thalidomide AnalogStart: 03-19-2022 End: 82-82-0238Bowhm: 02-19-2022 End: 87-67-4056oppmtigpp chloride 10 meq extended release oral capsule (20 sources)Start: 02-05-2024 End: 48-39-1933Vndwp: 40-40-6730iike 1 capsule by mouth once dailyPotassium Chloride Active 0 .ROUTE .COMPLEX 90 February 05, 2024 1:08pm TAKE 1 CAPSULE BY MOUTH EVERYDAYStart: 11-24-2023 End: 64-75-8710uecutskpu chloride 40 mEq in 100 mL IV premixStart: 80-65-833318 mEq, oral, Daily, First dose on Thu11/18/23 at 1430 Do not crush, chew, or split.Start: 08-08-2023 End: 41-35-038482 mEq, oral, Once, On Thu08/09/23 at 1145, For 1 dose Best given with food and plenty of water to minimize gastric irritation. Do not crush or chew.Start: 08-06-2023 End: 98-98-913485 mEq, intravenous, at 25 mL/hr, Administer over 4 Hours, Once, On Thu08/06/23 at 0530, For 1 doseVia central line. For central line administration only.Start: 20-44-215172 mEq, oral, Daily, First dose on Thu08/04/23 at 0900 Do not crush, chew, or split.Start: 08-04-2023 End: 17-98-804922 mEq, oral, 2 times daily, First dose on Thu08/04/23 at 0900, For 2 doses Best given with food and plenty of water to minimize gastric irritation. Do not crush or chew.Start: 08-29-2020 End: 52-13-4623Rlctd: 08-28-2020 End: 39-15-0312Ouvvfsf on above:Take 10 mEq by mouth once daily.promethazine hydrochloride 25 mg oral tablet (20 sources)PhenothiazineStart: 01-21-2024 End: 32-80-0005qstcbmvnilda calcium 5 mg oral tablet (20 sources)HMG-CoA Reductase InhibitorStart: 11-20-2017 End: 96-38-4989Gsexr: 11-20-2017 End: 96-64-3142omtn 1 tablet by mouth once dailyRosuvastatin Discontinued 1 TAB PO Daily November 20, 2017 1:00am April 13, 2019 2:01pmSUMAtriptan 50 mg oral tablet (20 sources)Serotonin-1b and Serotonin-1d Receptor AgonistStart: 03-21-2024 End: 93-92-9716Kguey: 04-30-7940asdg 1 tablet by mouth every two hours Sumatriptan Succinate Active 0 PO .COMPLEX March 21, 2024 12:00am take 1 tab at onset of headache; if no relief may repeat 1 tab after at least 2 hrs; max = 4 tabs/24 hr POStart: 09-09-2023 End: 86-13-0776gnfw 1 tablet by mouth onceSUMAtriptan (Imitrex) 50 MG tablet Take 50 mg by mouth 1 (one) time if needed. 09/09/2023 12/20/2024 Discontinued (Therapy completed)Teclistamab-Cqyv (20 sources)Start: 03-21-2024 End: 02-90-3941Qqkho: 03-21-2024 End: 60-17-0297Tpurzxzuttm-Cqyv (Tecvayli) 10 mg/mL solution Discontinued SUBCUT March 21, 2024 11:09am May 1:28pm On Hold: Resume on 05/06/24. Hold until recommended to be resumed by your primary care doctor and your multiple myeloma specialist patient is unsure of dose at this timeStart: 27-25-6996Gbzli: 92-45-9557Zkmbajfcwos-Cqyv (Tecvayli) 10 mg/mL solution Active SUBCUT March 21, 2024 11:09am patient is unsure of dose at this timeStart: 03-21-2024 End: 65-17-7067Arefo: 03-21-2024 End: 31-58-3440Oiyxqbplmcs-Cqyv (Tecvayli) 10 mg/mL solution Discontinued SUBCUT March 21, 2024 12:00am March 21, 2024 11:10amteclistamab-cqyv (Tecvayli) SUBQ solution 117 mg (1 source)Start: 11-22-2023 End: 14-60-2300iibkgqcbort-cqyv (Tecvayli) SUBQ solution 117 mgteclistamab-cqyv (Tecvayli) SUBQ solution 23.5 mg (1 source)Start: 11-20-2023 End: 34-53-8461xlttqkqgjjf-cqyv (Tecvayli) SUBQ solution 23.5 mgteclistamab-cqyv (Tecvayli) SUBQ solution 4.7 mg (1 source)Start: 11-18-2023 End: 24-99-1466qghdiiyhdyg-cqyv (Tecvayli) SUBQ solution 4.7 mgtemazepam 30 mg oral capsule (20 sources)BenzodiazepineStart: 09-15-2018 End: 13-98-0989Fpothowlopnyb (13 sources)CorticosteroidStart: 95-05-2161Uxiaiwp -40 mg March, 20 mg (1 source)Start: 08-10-2023 End: 99-21-3290jktq 1 mg by mouth twice daily1 packet, oral, 2 times daily, First dose on Thu08/10/23 at 1100, For 2 doses mg dosing is based onphosphorus component. Each packet contains 250 mg elemental phosphorus, 7.1 mEq potassium, and 6.9 mEq sodium. (2 sources)Start: 08-09-2023 End: 66-42-8712819.5 mg (1.5 mg/kg 81 kg Order-specific weight), subcutaneous, Once, On Thu08/09/23 at 1630, For 1dose [employer] [id number] HAZARDOUS - Handle with careStart: 08-06-2023 End: 09-08-4666cohsaw 24.5 mg by subcutaneous injection once24.5 mg, subcutaneous, Once, On Mela 08/06/23 at 1645, For 1 dose HAZARDOUS - Handle with care (1 source)Start: 08-04-2023 End: 82-29-9000mmkvll 4.9 mg by subcutaneous injection once4.9 mg (rounded from 4.86 mg = 0.06 mg/kg 81 kg Order-specific weight), subcutaneous, Once, On Tue 1 at 1400, For 1 dose [employer] [id number] HAZARDOUS - Handle with care Problems Active Problems Problem ClassificationProblemDateDocumented DateEpisodic/ChronicAbdominal pain (14 sources)Epigastric pain; Translations: [Epigastric pain]Onset: 07-19-2025 EpisodicAdjustment disorders (12 sources)Adjustment disorder with mixed anxiety and depressed mood; Translations: [Adjustment disorder with mixed anxiety and depressed mood] 71-34-7656DznatszGselqqngxxjvlx/social admission (20 sources)Patient encounter status; Translations: [Other specified counseling] 09-35-9149UmpprixnXgkw and rectal conditions (1 source)Anal pain; Translations: [Other specified diseases of anus and rectum] 72-62-1090ClxbgdgqVjtagw; peripheral; and visceral artery aneurysms (20 sources)Aneurysm of ascending aorta; Translations: [Thoracic aortic aneurysm, without rupture]Onset: 06-08-2017 Resolved: 862938-43-2045VznahgfDudpqekp of urinary tract (20 sources)Ureteric stone; Translations: [Calculus of ureter]Onset: 12-05-2020 Resolved: 596701-51-4136KlrwlugtYjmrhv of liver and intrahepatic bile duct (20 sources)Liver cell carcinoma; Translations: [Liver cell carcinoma]Onset: 280519-24-8441DywcvigMkmkpcq dysrhythmias (20 sources)Paroxysmal atrial fibrillation; Translations: [Paroxysmal atrial fibrillation]Onset: 644906-60-0444VtldzexFekabrn kidney disease (2 sources)Chronic kidney disease stage 3A ; Translations: [Chronic kidney disease, stage 3a (HCC) ([facility]/HCC)]12-41-9768NfmbohsBoxurdb obstructive pulmonary disease and bronchiectasis (20 sources)Chronic obstructive lung disease; Translations: [Chronic obstructive pulmonary disease, unspecified]Onset: 756305-47-7245FbfemwxQpegoav obstructive pulmonary disease and bronchiectasis (1 source)Bronchitis; Translations: [Bronchitis, not specified as acute or chronic]47-55-3529OpvbnkwwOcrsdoheewa and hemorrhagic disorders (20 sources)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; Translations: [Thrombocytopenia, unspecified]Onset: 05-31-2014 Resolved: 421245-94-1181SmmplgkLsrpezfimg and other anemia (20 sources)Pancytopenia; Translations: [Other pancytopenia]Onset: 08-14-2023 79-36-8074PthnqzmSsyamaxgdy and other anemia (4 sources)Other pancytopenia; Translations: [Other pancytopenia]01-28-2023 ChronicDeficiency and other anemia (20 sources)Hypocellular bone marrow; Translations: [Aplastic anemia, unspecified]90-27-5354JmewsguJwvoagojja and other anemia (20 sources)Aplastic anemia, unspecified; Translations: [Unspecified diseases of blood and blood-forming organs]12-11-0950YuthglzMiyrdnfbjl and other anemia (1 source)Normocytic anemia; Translations: [Anemia, unspecified]08-23-2024 EpisodicDeficiency and other anemia (20 sources)Iron deficiency anemia; Translations: [Iron deficiency anemia, unspecified]76-00-0178ItxgnrkxOyvnufzwoq and other anemia (6 sources)Iron deficiency anemia, unspecified; Translations: [Iron deficiency anemia, unspecified]34-52-6379CbrgjobrNuabsfokaw and other anemia (19 sources)Anemia; Translations: [Anemia, unspecified]Onset: 07-07-2025 62-11-6209QktorshaFkjfyebe mellitus without complication (20 sources)Diabetes mellitus; Translations: [Type 2 diabetes mellitus without complications]Onset: 582361-53-2203TucmryoNkjybxhn of white blood cells (20 sources)Neutropenia; Translations: [Neutropenia, unspecified]Onset: 02-25-2017 Resolved: 434449-18-1146RnxsnknQrdxvccdc of lipid metabolism (20 sources)Hyperlipidemia; Translations: [Hyperlipidemia, unspecified]Onset: 779690-99-4567BvqpzchTwolflinyj disorders (20 sources)Gastroesophageal reflux disease; Translations: [Gastro-esophageal reflux disease without esophagitis]Onset: 112944-80-1643BdnainkCncabflvy hypertension (20 sources)Hypertensive disorder; Translations: [Essential (primary) hypertension]Onset: 219238-02-6491VvjzjwcXnhqzgyknxakt symptoms and ill- defined conditions (20 sources)Blood in urine; Translations: [Hematuria, unspecified]Onset: 912320-65-3673NxbrjzmbPvffdbem; including migraine (1 source)Nepjucef54-69-9028QvgwifypLgeyc valve disorders (2 sources)Aortic stenosis, non-rheumatic ; Translations: [Nonrheumatic aortic (valve) stenosis]Onset: 066853-44-8170HibtomeOmpzepaqj (20 sources)Cirrhosis - non-alcoholic; Translations: [Nonalcoholic steatohepatitis (KAPADIA)]Onset: 226057-52-7029FjwxbvcLmeyeymfavhe with complications and secondary hypertension (2 sources)Secondary hypertension; Translations: [Secondary hypertension, unspecified]06-64-0715DbusgswZksvjbik disorders (20 sources)Immunosuppression; Translations: [Immunodeficiency, unspecified] Onset: 02-05-2021 Resolved: 150855-70-7385JjwtgbhNhtaohhlcvmif and screening for infectious disease (2 sources)H/O: risk factor; Translations: [Contact with and (suspected) exposure to tuberculosis]27-09-6784FbcdewieAiiakohpdio chemotherapy; radiotherapy (20 sources)Patient encounter status; Translations: [Encounter for antineoplastic immunotherapy]87-01-1735GkkcswyEire disorders (20 sources)Depressive disorder; Translations: [Depression]Onset: 05-20-2023 66-06-1427GnwrkkbYlqbnsnh myeloma (20 sources)Multiple myeloma; Translations: [Multiple myeloma not having achieved remission]Onset: 03-09-2020 Resolved: 403458-93-4633SubipjuDqzhpun (2 sources)Recurrent candidiasis of vagina; Translations: [Recurrent candidiasis of vagina]88-07-0805OgdhiywpHpjolq and vomiting (20 sources)Nausea; Translations: [Nausea]25-35-8564MuhkzcufNjjpjpztrck chest pain (20 sources)Chest pain; Translations: [Chest pain, unspecified]Onset: 04-19-2019 Resolved: 923149-83-3730ZcozoariKhmtkrrseoo deficiencies (20 sources)Vitamin D deficiency; Translations: [Vitamin D deficiency, unspecified]Onset: 04-15-2006 Resolved: 032957-66-5614HzehyulLexgrnaeqav deficiencies (20 sources)Iron deficiency; Translations: [Iron deficiency]Onset: 08-16-2025 84-62-8980PxolwcntEdcp wounds of extremities (1 source)Injury of upper extremity; Translations: [Unspecified open wound of left upper arm, initial encounter]71-63-7779SlzscpnhUcyfgqcbvqqyny (20 sources)Degenerative joint disease involving multiple joints; Translations: [Polyosteoarthritis, unspecified]Onset: 213724-38-9665QqntrwuOswjb aftercare (12 sources)Seen by palliative care physician; Translations: [Encounter for palliative care]EpisodicOther aftercare (13 sources)Long-term current use of insulin; Translations: [retirement (current) use of insulin]EpisodicOther aftercare (2 sources)Encounter for palliative care; Translations: [Encounter for palliative care]EpisodicOther connective tissue disease (20 sources)Fibromyalgia; Translations: [Myalgia and myositis, unspecified] 13-46-8512EtttcaonQkzao connective tissue disease (3 sources)Pain in lower limb; Translations: [Pain in right leg]12-29-2024 EpisodicOther connective tissue disease (6 sources)Pain in right leg; Translations: [Pain in limb]27-00-7702Koxktvks Other connective tissue disease (20 sources)Pain in bilateral legs; Translations: [Pain in right leg]12-29-2024 EpisodicOther gastrointestinal disorders (1 source)Constipation, unspecifiedEpisodicOther liver diseases (20 sources)Lesion of liver; Translations: [Liver disease, unspecified]Onset: 431885-56-0719AuuhoxbYnrsy liver diseases (3 sources)Unspecified cirrhosis of liver; Translations: [Unspecified cirrhosis of liver (CMS/HCC)]Onset: 57-10-7303NbjgpejJrdoz liver diseases (1 source)Disease of bnutu73-94-5713MqqgvjkYgpsg liver diseases (1 source)Liver disease, unspecified; Translations: [Liver disease, unspecified] Onset: 36-19-3860HxehyecMtxhv liver diseases (1 source)Other cirrhosis of liver; Translations: [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) (HCC)]Onset: 41-48-7402HjkljdiWconi lower respiratory disease (20 sources)Cough; Translations: [Refractory chronic cough]31-90-3816Mjydpgur Other lower respiratory disease (20 sources)Cough; Translations: [Cough]86-81-1049LkmmwxpbZfqfh lower respiratory disease (4 sources)Chronic cough; Translations: [Chronic cough]35-29-7693TafwpvnvXjrmj nervous system disorders (20 sources)Pain due to neoplastic disease; Translations: [Neoplasm related pain (acute) (chronic)]88-64-1854RxbyxjfWbwfg nervous system disorders (20 sources)Neoplasm related pain (acute) (chronic); Translations: [Neoplasm related pain (acute) (chronic)]Onset: 977527-40-1987MycyjawLkctc nervous system disorders (13 sources)Chronic pain; Translations: [Other chronic pain]ChronicOther nervous system disorders (12 sources)Neuropathy; Translations: [Polyneuropathy, unspecified]ChronicOther nervous system disorders (3 sources)Polyneuropathy, unspecified; Translations: [Neuropathy]ChronicOther nervous system disorders (4 sources)Polyneuropathy due to drug; Translations: [Drug-induced polyneuropathy]Onset: 359927-44-6903QyzvvzpNheox nervous system disorders (20 sources)Peripheral nerve disease ; Translations: [Polyneuropathy, unspecified]Onset: 218457-75-7997BbrpsptXcomn nervous system disorders (6 sources)Metabolic encephalopathy; Translations: [Metabolic encephalopathy] 26-42-6331OjbkzrpBygjn nervous system disorders (20 sources)Chronic pain syndrome; Translations: [Chronic pain syndrome]Onset: 05-01-2017 Resolved: 455256-91-9507JttvvrrRaaam nervous system disorders (4 sources)Chronic pain syndrome; Translations: [Chronic pain syndrome] 51-04-9239ZvfajqiKtqgc nervous system disorders (1 source)Drug-induced polyneuropathy; Translations: [Drug-induced polyneuropathy (CMS/HCC)]Onset: 33-18-7697IyybkznAbocn non-traumatic joint disorders (20 sources)Hip pain; Translations: [Pain in right hip]12-35-5381LjoektxnXwwhy non-traumatic joint disorders (20 sources)Pain in right hip; Translations: [Pain in joint, pelvic region and thigh]22-48-6302KbwgvobdTdnkd nutritional; endocrine; and metabolic disorders (20 sources)Obesity; Translations: [Obesity, unspecified]44-42-3714NuyumquNarqp nutritional; endocrine; and metabolic disorders (20 sources)Obesity, unspecified; Translations: [Obesity, unspecified]07-10-2022 ChronicOther nutritional; endocrine; and metabolic disorders (20 sources)Morbid obesity; Translations: [Body mass index (BMI) 60.0-69.9, adult]Onset: 231055-92-4538CuvecvqHegot nutritional; endocrine; and metabolic disorders (4 sources)Body mass index (BMI) 30.0-30.9, adult; Translations: [Body Mass Index 30.0-30.9, adult]47-80-2060VzbpwilRpecm nutritional; endocrine; and metabolic disorders (4 sources)Obesity caused by energy imbalance; Translations: [Class 1 obesity due to excess calories with serious comorbidity and body mass index (BMI) of 33.0 to 33.9 in adult]17-66-6695UtdplyrXhoyw nutritional; endocrine; and metabolic disorders (15 sources)Hypomagnesemia; Translations: [Hypomagnesemia]23-62-1806KenzertFinqv nutritional; endocrine; and metabolic disorders (3 sources)Hypomagnesemia; Translations: [Disorders of magnesium metabolism] 38-12-4059MkkqjrsDviyu screening for suspected conditions (not mental disorders or infectious disease) (20 sources)Imaging of thorax abnormal; Translations: [Abnormal findings on diagnostic imaging of other specified body structures]Onset: 08-10-2024 78-17-9185VjtfdosTsrok upper respiratory disease (5 sources)Allergic rhinitis due to pollen; Translations: [Allergic rhinitis due to pollen]39-48-5254TgywuqpBzwec upper respiratory disease (20 sources)Bleeding from nose; Translations: [Epistaxis]87-56-8938LehmutrpPlihh upper respiratory infections (20 sources)Frontal sinusitis; Translations: [Chronic frontal sinusitis]Onset: 04-25-2024 Resolved: 401383-42-3602FrktxrkAhkyj upper respiratory infections (10 sources)Acute upper respiratory infection, unspecified; Translations: [Upper respiratory infection]Onset: 726613-02-3718UqumxqfeAavousdl codes; unclassified (2 sources)Hypersomnia; Translations: [Hypersomnia, unspecified]07-20-2024 ChronicResidual codes; unclassified (20 sources)Family history of cancer of colon; Translations: [Family history of malignant neoplasm of digestiveorgans]74-90-3744HmnljbtsBisexazt codes; unclassified (1 source)Family history of malignant neoplasm of breast; Translations: [FAMILY HX MALIG NEOPLASM OF BREAST]Onset: 94-79-1937GtddbobtLdpoxdts codes; unclassified (1 source)Family history of malignant neoplasm of digestive organs; Translations: [FAM HX MALIG NEOPLASM DIGESTIV ORGN]Onset: 94-33-9660Hglfuqyb Residual codes; unclassified (1 source)Family history of malignant neoplasm of trachea, bronchus and lung; Translations: [FAM HX MALIG NEOPLSM TRACH BRON LNG]Onset: 58-26-3660Hcsmzfay Residual codes; unclassified (1 source)Family history of malignant neoplasm of other organs or systems; Translations: [FAM HX MALIG NEOPLASM OTH ORGN/SYS]Onset: 79-64-7035Oxuhdxtx Residual codes; unclassified (13 sources)Family history of malignant neoplasm of gastrointestinal tract; Translations: [Family history of malignant neoplasm of digestive organs]Episodic Residual codes; unclassified (2 sources)Altered mental status, unspecified; Translations: [Altered mental status]81-05-0758RegtyxhsResrauhurbj; intervertebral disc disorders; other back problems (13 sources)Lumbar spondylosis; Translations: [Spondylosis without myelopathy or radiculopathy, lumbar region]ChronicSpondylosis; intervertebral disc disorders; other back problems (20 sources)Acute thoracic back pain; Translations: [Pain in thoracic spine] 29-39-6985TadxfwyyLmxewirrf-related disorders (1 source)Inhalant abuse; 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 abuse, in remission]12-20-2024 ChronicSuperficial injury; contusion (2 sources)Contusion of left front wall of thorax, subsequent encounter; Translations: [Other specified aftercare]73-19-7887YtwrrlccUsytgvjsvuqk (3 sources)CONTACT W/AND (SUSP) EXPOS COVID-19; Translations: [CONTACT W/AND (SUSP) EXPOS COVID-19]Onset: 21-61-0127Kugkicudapji (2 sources)New Patient Visit; Translations: [New Patient Visit]Onset: 11-28-2024 Unclassified (2 sources)Autogenerated ProblemOnset: 232817-17-4623Lrvxgiyeondu (1 source)Obesity, Class III, BMI 40-49.9 (morbid obesity) ([facility]); Translations: [Obesity, Class III, BMI 40-49.9 (morbid obesity) ([facility])]Onset: 04-27-2019 Unclassified (1 source)Aneurysm of ascending aorta without rupture; Translations: [Aneurysm of ascending aorta without rupture]Onset: 00-09-6717Sctcngi tract infections (20 sources)Urinary tract infectious disease; Translations: [Urinary tract infection, site not specified]00-47-1071Lvchgiux Past or Other Problems Problem ClassificationProblemDateDocumented DateEpisodic/ChronicAnxiety disorders (20 sources)Claustrophobia; Translations: [Claustrophobia]Onset: 01-10-2025 Resolved: 088551-00-5250QbnsqsrXkvowlozs infection; unspecified site (20 sources)Bacteremia; Translations: [Bacteremia]Onset: 06-20-2024 Resolved: 792867-48-4259KglrevzyCeueunoqxd and other anemia (1 source)Anemia, unspecified; Translations: [Anemia, unspecified]Onset: 05-15-6758YmvbwzdzQtyyvmcc mellitus with complications (20 sources)Hyperglycemia due to type 2 diabetes mellitus; Translations: [Type 2 diabetes mellitus with hyperglycemia]Onset: 11-11-2017 Resolved: 756715-26-9768KqgahvoUruqfkhxvbhfupsn hemorrhage (20 sources)Hematochezia; Translations: [Melena]Onset: EpisodicHemorrhoids (20 sources)Hemorrhoids; Translations: [Unspecified hemorrhoids]Onset: 11-18-2018 Resolved: 919946-62-0944ZsvovlmuFcpcdbuqpkpyn mental health disorders (20 sources)Primary insomnia; Translations: [Primary insomnia]Onset: 04-03-2017 Resolved: 171263-12-6965VfmemtgCaak disorders (20 sources)Mood disorders; Translations: [Depression, unspecified]Onset: 897249-89-5495Aosccsdpx of unspecified nature or uncertain behavior (20 sources)Smoldering myeloma; 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]Onset: 03-26-2006 Resolved: 811398-69-0294UupyhbqLzy-Spfuzut`s lymphoma (7 sources)Malignant immunoproliferative disease (clinical); Translations: [Malignant immunoproliferative disease, unspecified]Onset: 04-16-2020 Resolved: 184515-30-6361KxctesnAhooe connective tissue disease (20 sources)Fibromyalgia; Translations: [Fibromyalgia]Onset: 05-20-2023 10-95-4764CyixbgloGqkwe connective tissue disease (5 sources)Muscle pain; Translations: [Myalgia and myositis, unspecified]Onset: 080410-53-5291KtavvgkdAfmyy connective tissue disease (1 source)Other specified soft tissue disorders; Translations: [Other specified soft tissue disorders]Onset: 78-33-9988TxxvgytcOgzla gastrointestinal disorders (20 sources)Constipation; Translations: [Constipation, unspecified]Onset: 376621-61-4314CntlafogRnwvu infections; including parasitic (20 sources)Personal history of other infectious and parasitic diseases; Translations: [History of 2019 novel coronavirus disease (COVID-19)]Onset: 04-25-2024 Resolved: 934165-62-6248FaehpiqbRcuoq liver diseases (20 sources)Cirrhosis of liver; Translations: [Unspecified cirrhosis of liver] Onset: 10-17-2015 Resolved: 000095-91-0715RjgfprqVauey nervous system disorders (20 sources)Metabolic encephalopathy; Translations: [Metabolic encephalopathy] Onset: 06-20-2024 Resolved: 267389-66-5405YrgpnhvDkncs nervous system disorders (20 sources)Polyneuropathy; Translations: [Polyneuropathy, unspecified]Onset: 10-05-2017 Resolved: 494830-67-0364PzrkpceAkseo nutritional; endocrine; and metabolic disorders (20 sources)Body mass index 40+ - severely obese; Translations: [Morbid (severe) obesity due to excess calories]Onset: 04-20-2019 Resolved: 493112-87-9658XjyibntOjavb nutritional; endocrine; and metabolic disorders (20 sources)Body mass index 30+ - obesity; Translations: [Body mass index (BMI) 30.0-30.9, adult]Onset: 04-20-2019 Resolved: 597137-65-3009AhaozwoDlrzc nutritional; endocrine; and metabolic disorders (2 sources)Overweight in adulthood with body mass index of 25 or more but less than 30; Translations: [Body mass index (BMI) 28.0-28.9, adult]06-20-2024 EpisodicOther screening for suspected conditions (not mental disorders or infectious disease) (20 sources)Encounter for screening mammogram for malignant neoplasm of breast; Translations: [CT of abdomen abnormal]Onset: 98-57-1396VwicohpbDxqpp upper respiratory disease (20 sources)Allergic rhinitis; Translations: [Allergic rhinitis, unspecified] Onset: 10-20-2017 Resolved: 308938-69-8214TgzicqgIvqbvznbxd and visceral atherosclerosis (20 sources)Atherosclerosis of aorta; Translations: [Atherosclerosis of aorta] Onset: 06-08-2017 Resolved: 786980-82-4675LwpahzpVvpuiviozit and intestinal abscess (20 sources)Primary bacterial peritonitis; Translations: [Spontaneous bacterial peritonitis]Onset: 08-10-2024 Resolved: 99-81-521561355043-13-9602NealsbaiKwikwsad codes; unclassified (20 sources)Sleep apnea; Translations: [Sleep apnea, unspecified]Onset: 04-15-2006 Resolved: 474269-32-7339UmbqouqBfoaefeo codes; unclassified (20 sources)Altered mental status; Translations: [Altered mental status, unspecified]Onset: 04-25-2024 Resolved: 726612-31-3780FdmzbbmfGehvsfhp codes; unclassified (20 sources)History of abdominal hysterectomy; Translations: [Acquired absence of both cervix and uterus]Onset: 03-07-2019 Resolved: 213675-15-5494AvehnqcvKpvqjswkg and history of mental health and substance abuse codes (20 sources)Ex-smoker; Translations: [Personal history of nicotine dependence] Onset: 822920-49-9775SwwlmminMkxhlbjerz (except in labor) (20 sources)Septic shock; Translations: [Sepsis, unspecified organism]Onset: 06-20-2024 Resolved: 193494-08-9386MtjwetmhClmrepfrvktj (1 source)CONTACT W/AND (SUSP) EXPOS COVID-19; Translations: [CONTACT W/AND (SUSP) EXPOS COVID-19]Onset: 00-62-9015Mzgnjawnqgoq (20 sources)Onset: 09-08-2023 Resolved: Viral infection (20 sources)Disease caused by 2019-nCoV; Translations: [COVID-19]Onset: 06-20-2024 Resolved: 341703-25-5559Liixolao Results Test NameValueInterpretationReference RangeFacilityLaboratory - Microbiology and Antimicrobial susceptibilityon 08-22-2025S. pyogenes Ag Ql (Throat)Negative Negative, None DetectedNOWright Memorial HospitalNo Panel Informationon 08-22-2025 Interpretation and review of laboratory resultsNormalNOThree Rivers Healthcare HealthcareCNOVon 68-09-5673NVQCUafccs Visit (CARINF) MOJGAN PÉREZ ([id number]) 1955 F Date Time Provider Department 08/17/25 4:20 PM JUAN J MENDEZ During your visit today, we recorded the following information about you: Pulse Blood pressure Weight Height 82/minute 112/76 84.8 kg 1.575 m Juan J Mendez MD 08/17/2025 4:38 PM Signed SUBJECTIVE: Mojgan Pérez is a 69 year old female. Patient presents with: Cardiology Follow Up Mojgan Pérez was referred by Self HPI: The patient is a pleasant, 69-year-old female, who underwent extensive evaluation at the [facility], April 2019, after presenting with chest discomfort. Testing included a CTA of the ascending aorta which revealed a maximum dimension of 4.1 cm. Stress PET Testing revealed reversible ischemic territory, followed by heart catheterization, which revealed mild diffuse disease of all 3 coronaries, which was treated medically. Echocardiogram, June 2020, revealed a maximum ascending aorta dimension of 4.3 cm, in the setting of a trileaflet aortic valve, with a trace [...] Yes, Claudication:No CONDITIONS: Hypertension: Yes, Heart failure:No, [place] Heart Association Functional Classification: Class II, Atrial fibrillation:No, History of myocardial infarction/angina: Yes, History of CABG/PCI:No, Valvular heart disease: No, Cardiomyopathy: No, Aortic diseases: Yes, Peripheral vascular disease: No, History of cerebrovascular accident: No, History of pulmonary embolism No, History of DVT No. History of rheumatic fever: No, History of transient ischemic [...] file Gets together: Not on file Attends roman catholic service: Not on file Active member of club or organi (more content not included)...[facility] COMPLETEon 83-04-5441XFC COMPLETEVentricular Rate : 82 BPM Atrial Rate : 82 BPM P-R Interval : 190 ms QRS Duration : 72 ms Q-T Interval : 362 ms QTC Calculation(Bazett) : 422 ms Calculated P [place] : 25 degrees Calculated R [place] : -4 degrees Calculated T [place] : 36 degrees NORMAL SINUS RHYTHM Confirmed by ARNULFO HENDERSON M.D. ([id number]) on 08/19/2025 11:45:15 AM NAME : MOJGAN PÉREZ PID : [id number] : 1955 Gender : Female Race : ORD : [id number] Procedure Date : Aug 17 2025 16:08:55 Edit Date : Aug 19 2025 11:45:21 Diagnosis: NORMAL SINUS RHYTHM Confirmed by ARNULFO HENDERSON M.D. ([id number]) on 08/19/2025 11:45:15 AM Test Reason : I71.21 Aneurysm of ascending aorta without rupture Location : 192 : AVCRD Overread By : ARNULFO HENDERSON M.D. Edited By : ARNULFO HENDERSON M.D. Referred By : JUAN J MENDEZ Acquired by : ,[facility] 03-92-7025Rjdzsnmwfunphjrt Echocardiography Report: Transthoracic Echo [facility] Date of service: 08/17/2025 3:22:[address] REPORTER Ordering physician: JUAN J MENDEZ Exam indication: Re-evaluation of known ascending aortic dilatation with the change in clinical status Technologist: Humberto Armendariz Interpreting physician: Mariam Raygoza MD PATIENT: Name: MRS. MOJGAN PÉREZ : 1955 Age: 69 years Gender: F History of hypertension, dyslipidemia and diabetes mellitus. Primary rhythm: sinus. Height: 157.50 cm BSA: 1.87 m Weight: 80.30 kg BMI: 32.4 kg/m Heart rate 80 bpm Blood pressure 128/86 mmHg Color Doppler was utilized to interrogate the cardiac valves assessed and spectral Doppler was utilized to determine the flow velocities and pressure gradients reported in this exam. MEASUREMENTS: Value Indexed Normal Max aortic dimension 4.3 cm Ao < 3.8 Left atrial volume 28 ml (Villalobos's) 15 ml/m Ezekiel <= 34 LV stroke volume 41 ml (2D biplane) LV end diastolic volume 76 ml (2D biplane) 40.4 ml/m 29<=EDVi<62 LV end systolic volume 34 ml (2D biplane) 18.3 ml/m Ejection Fraction 55 % (2D biplane) EF [...] normal in size (RA area = 14.0 cm ). Inferior Vena Cava: The inferior vena cava [...] Doppler. PERICARDIUM There is no pericardial effusion. CONCLUSIONS: - Exam indication: Re-evaluation of known ascending aortic dilatation with the change in clinical status - The left ventricle is normal in size. Left ventricular systolic function is normal. EF = 55 5% (2D biplane) Grade I left ventricular [...] * * * Final * * * [employer] : [id number] [facility] TroyAlanine aminotransferase [Enzymatic activity/volume] in Serum or PlasmaOrdered By: Fabiola Marinelli on 30-13-8173OJT [Catalytic activity/Vol]13 U/LNormal7-52Sal[facility] City HospitalComment on above: Performed By: #### CMP, FE and TIBC, NERY ####[facility] [id number] [place] [address] USAAlbumin [Mass/volume] in Serum or Plasma by Bromocresol green (BCG) dye binding methoOrdered By: Fabiola Marinelli on 08-16-2025 Albumin BCG dye [Mass/Vol]3.6 g/dL3.5-5.7FPremier Health Alkaline phosphatase [Enzymatic activity/volume] in Serum or PlasmaOrdered By: Fabiola Marinelli on 45-13-4764SSP [Catalytic activity/Vol]94 U/NOhfpzr74-330WbbzqjiukSalem City HospitalComment on above:Performed By: #### CMP, FE and TIBC, NERY ####[facility] [id number] Aspartate aminotransferase [Enzymatic activity/volume] in Serum or PlasmaOrdered By: Fabiola Marinelli on 33-65-7957WDR [Catalytic activity/Vol]27 U/SKamglk21-12 [facility] HospitalComment on above:Performed By: #### CMP, FE and TIBC, NERY ####[place] [address] USABasophils [#/volume] in Blood by Automated countOrdered By: Fabiola Marinelli on 95-51-4930Qurdrvguy (Bld) [#/Vol]0.0 10*3/uLNormal0.0-0.2FPremier HealthComment on above:Performed By: #### SCAN CBC ####[place] [address] USABasophils/100 leukocytes in Blood by Automated countOrdered By: Fabiola Marinelli on 08-16-2025 Basophils/100 WBC (Bld)0.4 %Normal.[facility] City HospitalComment on above:Performed By: #### SCAN CBC ####[place] [address] USABilirubin.total [Mass/volume] in Serum or Plasma Ordered By: Fabiola Marinelli on 36-65-7983Kjyoaemvt [Mass/Vol]0.9 mg/dLNormal0.3-1.0 [facility] HospitalComment on above:Performed By: #### CMP, FE and TIBC, NERY ####[place] [address] USACalcium [Mass/volume] in Serum or PlasmaOrdered By: Fabiola Marinelli on 08-16-2025 Calcium [Mass/Vol]9.0 mg/dLNormal8.6-10.3FPremier Health Comment on above:Performed By: #### CMP, FE and TIBC, NERY ####[place] [address] USACarbon dioxide, total [Moles/volume] in Serum or PlasmaOrdered By: Fabiola Marinelli on 35-26-0109BC0 [Moles/Vol]28.5 mmol/ZMmhfdd39.0-31.0Sal[facility] City HospitalComment on above:Performed By: #### CMP, FE and TIBC, NERY ####[place] [address] USAChloride [Moles/volume] in Serum or PlasmaOrdered By: Fabiola Marinelli on 13-11-3183Okucnfyj [Moles/Vol]105 mmol/LNormal 98-107Sal[facility] City HospitalComment on above:Performed By: #### CMP, FE and TIBC, NERY ####[place] [address] USAComprehensive Metabolic Panelon 80-07-5006Mqjicij [Mass/Vol]3.6 g/dL Normal3.5-5.7The [facility] Medical CenterComment on above:Performed By: #### CMP, FE and TIBC, NERY ####[place] [address] USACreatinine Clr Calc Weaujkpx38.18NormAultman Orrville Hospitale [facility] Medical CenterComment on above:Performed By: #### CMP, FE and TIBC, NERY ####[place] [address] [place] GFR/1.73 sq M.predicted MDRD (S/P/Bld) [Vol rate/Area]mL/min/{1.73_m2}NormalThe [facility] Physician [facility] Medical CenterComment on above:Performed By: #### CMP, FE and TIBC, NERY ####[place] [address] [place] Creatinine [Mass/volume] in Serum or PlasmaOrdered By: Fabiola Marinelli on 08-16-2025 Creatinine [Mass/Vol]0.99 mg/dLNormal0.60-1.20[facility] Comment on above:Performed By: #### CMP, FE and TIBC, NERY ####[place] [address] USAEosinophils [#/volume] in Blood by Automated countOrdered By: Fabiola Marinelli on 44-29-3381Dybtoxqaoqh (Bld) [#/Vol]0.6 10*3/uLHigh0.0-0.45Sal[facility] City HospitalComment on above: Performed By: #### SCAN CBC ####[address] [place] [address] USAEosinophils/100 leukocytes in Blood by Automated countOrdered By: Fabiola Yves on 63-28-8183Cpiyanhysfx/100 WBC (Bld)33.6 %Normal. [facility] HospitalComment on above:Performed By: #### SCAN CBC ####[place] [address] [facility] Erythrocyte distribution width [Ratio] by Automated countOrdered By: Fabiola Marinelli on 71-85-3775Hxjslxwbbjw distribution width (RBC) [Ratio]15.3 %Caauzt77.9-15.3 [facility] HospitalComment on above:Performed By: #### SCAN CBC ####[address] Erythrocyte morphology finding [Identifier] in BloodOrdered By: Fabiola Marinelli on 18-21-7827DUJ morphology finding Nom (Bld)N/AFPremier Health Erythrocytes [#/volume] in Blood by Automated countOrdered By: Fabiola Marinelli on 42-15-3271QOJ (Bld) [#/Vol]3.45 10*6/uLLow3.60-5.00Sal[facility] City HospitalComment on above:Performed By: #### SCAN CBC ####[place] [address] USAFerritin [Mass/volume] in Serum or PlasmaOrdered By: Fabiola Marinelli on 75-32-9744Ilehfrhz [Mass/Vol]117.1 ng/mL Cvrxcv11.0-306.8Sal[facility] City HospitalComment on above:Result Comment: PERFORMED BY:[address] [place], [place] [id number] MEDICAL BARBIE BRUCE M.D.Performed By: #### CMP, FE and TIBC, NERY ####[place] [address] USAGlomerular filtration rate [Volume Rate/Area] in Serum, Plasma or Blood by CreatinineOrdered By: Fabiola Marinelli on 08-16-2025 Glomerular filtration rate [Volume Rate/Area] in Serum, Plasma or Blood by Creatinine> 60.0 mL/MinSalem City HospitalGlucose [Mass/volume] in Serum or PlasmaOrdered By: Fabiola Marinelli on 48-40-3433Tjgeshn [Mass/Vol]109 mg/dL Tdwo31-366UszfoffgbSalem City HospitalComment on above:Result Comment: Random Glucose Reference Range is dependent on time and content of last meal. Glucose of more than 200 mg/dL in a nonstressed, ambulatory subject supports the diagnosis of Diabetes Mellitus. ADA recommended reference rangePerformed By: #### CMP, FE and TIBC, NERY ####[address] [address] USAHematocrit [Volume Fraction] of Blood by Automated countOrdered By: Fabiola Marinelli on 62-06-7955Evouvvzvzc (Bld) [Volume fraction]32.6 % Low34.0-46.4FPremier HealthComment on above:Performed By: #### SCAN CBC ####[address] [address] USAHemoglobin [Mass/volume] in BloodOrdered By: Fabiola Berumense on 08-16-2025 Hemoglobin (Bld) [Mass/Vol]11.2 g/dLLow11.8-15.4FPremier HealthComment on above:Performed By: #### SCAN CBC ####[address] [address] USAIron [Mass/volume] in Serum or PlasmaOrdered By: Fabiola Marinelli on 57-98-0416Jjob [Mass/Vol]70 ug/jACjnqny23-485 [facility] HospitalComment on above:Performed By: #### CMP, FE and TIBC, NERY ####[address] [address] USAIron and TIBC Profileon 08-16-2025% Iron Lxpduigrlw84.9 %Ytioeb40-87Xtf [facility] Physician GroupComment on above:Performed By: #### CMP, FE and TIBC, NERY ####[address] [address] [place] Total Iron Binding Qzoyiuxt166 ug/xCGgyoyu180-484Gty [facility] Comment on above:Performed By: #### CMP, FE and TIBC, NERY ####[address] [address] USALeukocytes [#/volume] corrected for nucleated erythrocytes in Blood by Automated counOrdered By: Fabiola Marinelli on 79-65-1986HLS corrected for nucl RBC Auto (Bld) [#/Vol]1.8 10*3/uLLow 3.8-11.6FPremier HealthLeukocytes [#/volume] in Blood by Automated countOrdered By: Fabiola Marinelli on 71-64-9472MAE (Bld) [#/Vol]1.8 10*3/uL Low3.8-11.6FPremier HealthComment on above:Performed By: #### SCAN CBC ####[place] [address] USALymphocytes [#/volume] in Blood by Automated countOrdered By: Fabiola Marinelli on 75-93-1818Uqcozjdrvmj (Bld) [#/Vol]0.3 10*3/uLLow1.00-4.8Sal[facility] City HospitalComment on above:Performed By: #### SCAN CBC ####[place] [address] USALymphocytes/100 leukocytes in Blood by Automated countOrdered By: Fabiola Marinelli on 08-16-2025 Lymphocytes/100 WBC (Bld)16.6 %Normal.[facility] City HospitalComment on above:Performed By: #### SCAN CBC ####[address] [address] [facility] [Entitic mass] by Automated countOrdered By: Fabiola Marinelli on 99-77-9814WWM (RBC) [Entitic mass]32.4 qyJrawtw45.7-34.3 [facility] HospitalComment on above:Performed By: #### SCAN CBC ####[address] [address] [facility]TAHC Auto (RBC) [Mass/Vol]Ordered By: Fabiola Marinelli on 73-05-8967AHHQ (RBC) [Mass/Vol] 34.4 g/dL32.0-35.0Sal[facility] City HospitalMCV [Entitic volume] by Automated countOrdered By: Fabiola Yves on 71-12-8861RLF (RBC) [Entitic vol]94.4 fL Vozzoe78-437QafuatkgwSalem City HospitalComment on above:Performed By: #### SCAN CBC ####[address] [address] USAMagnesiumon 99-31-5657Wbcfoapdkruqco and review of laboratory resultsAbnormal NOMS HealthcareMagnesium [Mass/Vol]1.7 mg/dLLow1.9 - 2.7 mg/dLNOMS Healthcare NOMS HealthcareMagnesium [Mass/volume] in Serum or PlasmaOrdered By: Fabiola Marinelli on 19-22-4677Dpbxfsuev [Mass/Vol]1.7 mg/dLLow1.9-2.7FPremier HealthComment on above:Result Comment: PERFORMED BY:[address] [place], [place] [id number] MEDICAL DIRECTORARIEL BRUCE M.D.Performed By: #### MG ####[address] [address] USAMonocytes [#/volume] in Blood by Automated countOrdered By: Fabiola Marinelli on 54-34-6806Gcxocuewg (Bld) [#/Vol]0.2 10*3/uLNormal0.0-0.8Sal[facility] HospitalComment on above:Performed By: #### SCAN CBC ####[address] [address] USAMonocytes/100 leukocytes in Blood by Automated countOrdered By: Fabiola Marinelli on 70-42-0569Rxavclizu/100 WBC (Bld)13.4 %Normal.[facility] HospitalComment on above:Performed By: #### SCAN CBC ####[address] [address] USANeutrophils [#/volume] in Blood by Automated countOrdered By: Fabiola Marinelli on 08-16-2025 Neutrophils (Bld) [#/Vol]0.7 10*3/uLLow1.8-7.7FPremier Health Comment on above:Performed By: #### SCAN CBC ####[facility] [place] [address] USANeutrophils/100 leukocytes in Blood by Automated countOrdered By: Fabiola Marinelli on 74-14-0716Wbtisccqmoi/100 WBC (Bld)36.0 %Normal.[facility] HospitalComment on above:Performed By: #### SCAN CBC ####[facility] [place] [address] USANo Panel InformationOrdered By: Fabiola Marinelli on 29-24-010830.18FPremier HealthNucleated erythrocytes [Presence] in Blood by Automated countOrdered By: Fabiola Marinelli on 76-53-5422Vvbsyjmzf RBC Auto Ql (Bld)0.0 /100{WBC} 0-0.5FPremier HealthOvalocytes [Presence] in Blood by Light microscopyOrdered By: Fabiola Marinelli on 85-86-8088Cduvmnhlpm LM Ql (Bld)Slight [facility] City HospitalPlatelet adequacy [Presence] in Blood by Light microscopyOrdered By: Fabiola Marinelli on 73-91-4369Wimimwbzv LM Ql (Bld)Decreased NormalSalem City HospitalPlatelet mean volume [Entitic volume] in Blood by Automated countOrdered By: Fabiola Marinelli on 03-48-0663Mxyixrfe mean volume (Bld) [Entitic vol]7.9 fLNormal6.3-10.7FPremier HealthComment on above:Performed By: #### SCAN CBC ####[facility] [place] [address] USAPlatelet morphology finding [Identifier] in BloodOrdered By: Fabiola Marinelli on 49-49-0891Xtidjssr morphology finding Nom (Bld) NormalNormalSalem City HospitalPlatelets [#/volume] in Blood by Automated countOrdered By: Fabiola Marinelli on 74-24-3167Jsyllkbtp (Bld) [#/Vol]44 10*3/eKKzg210-091OnudsfetwSalem City HospitalComment on above:Performed By: #### SCAN CBC ####[address] [address] USAPotassium [Moles/volume] in Serum or PlasmaOrdered By: Fabiola Marinelli on 52-89-0816Bukwnsgxa [Moles/Vol]4.1 mmol/LNormal3.5-5.1FPremier HealthComment on above:Performed By: #### CMP, FE and TIBC, NERY ####[place] [address] USAProtein [Mass/volume] in Serum or PlasmaOrdered By: Fabiola Yves on 53-76-4984Klplftu [Mass/Vol]5.5 g/dL Low6.4-8.9Sal[facility] City HospitalComment on above:Performed By: #### CMP, FE and TIBC, NERY ####[place] [address] USAScan and CBCon 88-85-2949Fsxx Corpuscular HGB Conc 34.4 g/qHTpdfme55.0-35.0The [facility]health Physician GroupComment on above:Performed By: #### SCAN CBC ####[place] [address] USANRBC%0.0 /100{WBC}Normal0-0.5The [facility]ician [facility] Medical CenterComment on above:Performed By: #### SCAN CBC ####[address] [address] USAOvalocytesSlightNoAtrium Health Cabarrus Physician Group Comment on above:Performed By: #### SCAN CBC ####[address] [address] USAPlatelet EstimateDecreasedNormalNormal The [facility]health Physician GroupComment on above:Performed By: #### SCAN CBC ####[address] [address] [place] Platelet MorphologyNormalNormalNormOrlando Health - Health Central Hospital Physician GroupComment on above:Result Comment: PERFORMED BY:[address] [place], [place] [phone] MEDICAL DIRECTORARIEL BRUCE M.D.Performed By: #### SCAN CBC ####[place] [address] USAWhite Blood Count1.8 [CFU]/mLLow3.8-11.6The [facility] Physician GroupComment on above:Performed By: #### SCAN CBC ####[place] [address] USASerum globulin measurement by calculation (mass/volume)Ordered By: Fabiola Marinelli on 61-67-6541Qhukduvr (S) [Mass/Vol]1.9 g/dLNoOhioHealth Marion General Hospital Comment on above:Performed By: #### CMP, FE and TIBC, NERY ####[place] [address] USASerum or plasma albumin/globulin mass ratioOrdered By: Fabiola Marinelli on 55-23-3993Qxwlmic/Globulin [Mass ratio]1.9 {ratio}NormalSalem City HospitalComment on above: Performed By: #### CMP, FE and TIBC, NERY ####[place] [address] USASerum or plasma anion gap determinationOrdered By: Fabiola Marinelli on 90-87-0195Kohaa gap [Moles/Vol]8.6 mmol/LNormal6.0-15.0 [facility] City HospitalComment on above:Performed By: #### CMP, FE and TIBC, NERY ####[place] [address] USASerum or plasma iron binding capacity measurement (mass/volume)Ordered By: Fabiola Marinelli on 16-93-3746Oghd binding capacity [Mass/Vol]293 ug/xJ990-405LmfmirbijRiverview Health Instituteerum or plasma iron saturation measurement (mass fraction)Ordered By: Fabiola Marinelli on 92-39-3728Syux saturation [Mass fraction]23.9 %20-50Riverview Health Instituteodium [Moles/volume] in Serum or Plasma Ordered By: Fabiola Marinelli on 44-97-7138Bjybzw [Moles/Vol]138 mmol/ETzjzyl499-613 [facility] City HospitalComment on above:Performed By: #### HALEY SALGUERO and TIBC, NERY ####[facility] [place] [address] USATransferrin [Mass/volume] in Serum or PlasmaOrdered By: Fabiola Marinelli on 08-29-9724Yzxijkhfvch [Mass/Vol]209 mg/hVToisce181-001IrurzvdscSalem City HospitalComment on above:Performed By: #### HALEY SALGUERO and TIBC, NERY ####[address] [address] USAUrea nitrogen [Mass/volume] in Serum or PlasmaOrdered By: Fabiola Marinelli on 63-64-5014Sbbm nitrogen [Mass/Vol]17 mg/dLNoatrium health [facility]7-25Sal[facility] City HospitalComment on above: Performed By: #### HALEY SALGUERO and TIBC, NERY ####[place] [address] USAAlanine aminotransferase [Enzymatic activity/volume] in Serum or PlasmaOrdered By: Fabiola Marinelli on 38-48-1054QSA [Catalytic activity/Vol]12 U/LNormal7-52Sal[facility] City HospitalComment on above:Performed By: #### CMP ####[address] [address] USAAlbumin [Mass/volume] in Serum or Plasma by Bromocresol green (BCG) dye binding methoOrdered By: Fabiola Marinelli on 08-09-2025 Albumin BCG dye [Mass/Vol]3.6 g/dL3.5-5.7FPremier Health Alkaline phosphatase [Enzymatic activity/volume] in Serum or PlasmaOrdered By: Fabiola Marinelli on 24-59-8515VFB [Catalytic activity/Vol]102 U/EUofbvk40-186MnheheatwSalem City HospitalComment on above:Performed By: #### CMP ####[address] [address] USAAnisocytosis [Presence] in Blood by Light microscopyOrdered By: Fabiola Marinelli on 08-09-2025 Anisocytosis Ql (Bld)SlightNormalSalem City HospitalComment on above:Performed By: #### SCAN CBC ####[place] [address] USAAspartate aminotransferase [Enzymatic activity/volume] in Serum or PlasmaOrdered By: Fabiola Marinelli on 28-48-7678TWP [Catalytic activity/Vol]26 U/UZjvhxg44-09VvblpecfaSalem City Hospital Comment on above:Performed By: #### CMP ####[place] [address] USABasophils [#/volume] in Blood by Automated countOrdered By: Fabiola Marinelli on 51-47-2149Dnpsyfyoc (Bld) [#/Vol]0.0 10*3/uLNormal 0.0-0.2FPremier HealthComment on above:Performed By: #### SCAN CBC ####[place] [address] [place] Basophils/100 leukocytes in Blood by Automated countOrdered By: Fabiola Marinelli on 32-90-1714Jgggvsssb/100 WBC (Bld)0.5 %Normal.[facility] Comment on above:Performed By: #### SCAN CBC ####[place] [address] USABilirubin.total [Mass/volume] in Serum or PlasmaOrdered By: Fabiola Marinelli on 84-60-5477Wrxcnphhj [Mass/Vol]1.0 mg/dLNormal 0.3-1.0Sal[facility] City HospitalComment on above:Performed By: #### CMP ####[place] [address] USACalcium [Mass/volume] in Serum or PlasmaOrdered By: Fabiola Marinelli on 48-42-5442Dzailyu [Mass/Vol]8.7 mg/dLNormal8.6-10.3FPremier HealthComment on above:Performed By: #### CMP ####[place] [address] USACarbon dioxide, total [Moles/volume] in Serum or PlasmaOrdered By: Fabiola Marinelli on 12-76-6685EL0 [Moles/Vol]27.7 mmol/LNormal 21.0-31.0[facility] City HospitalComment on above:Performed By: #### CMP ####[address] [address] [place] Chloride [Moles/volume] in Serum or PlasmaOrdered By: Fabiola Marinelli on 08-09-2025 Chloride [Moles/Vol]102 mmol/CTrbhbn44-767VqbfdkygeSalem City Hospital Comment on above:Performed By: #### CMP ####[address] [address] USAComprehensive Metabolic Panelon 08-09-2025 Albumin [Mass/Vol]3.6 g/dLNormal3.5-5.7The [facility]health Physician GroupComment on above:Performed By: #### CMP ####[address] [address] USACreatinine Clr Calc Lnsbbzjz34.97NoAtrium Health Cabarrus Physician GroupComment on above:Result Comment: PERFORMED BY:[place] [address] [place], [place] [phone] MEDICAL DIRECTORARIEL BRUCE M.D.Performed By: #### CMP ####[address] [address] USAGFR/1.73 sq M.predicted MDRD (S/P/Bld) [Vol rate/Area]58.236 mL/min/{1.73_m2}NormalThe Adventhealth Physician GroupComment on above:Performed By: #### CMP ####[address] [address] USAComprehensive metabolic panelon 12-17-8701Vzytoxf [Mass/Vol]3.6 g/dL3.5 - 5.7 g/dLNOMS Healthcare Albumin/Globulin [Mass ratio]1.7 {ratio}NOMS HealthcareALP [Catalytic activity/Vol]102 U/L34 - 104 U/LNOMS HealthcareALT [Catalytic activity/Vol]12 U/L7 - 52 U/LNOMS HealthcareAnion gap [Moles/Vol]9.3 mmol/L6.0 - 15.0NOMS HealthcareAST [Catalytic activity/Vol]26 U/L13 - 39 U/LNOMS HealthcareBilirubin [Mass/Vol]1 mg/dL0.3 - 1.0 mg/dLNOMS HealthcareCalcium [Mass/Vol]8.7 mg/dL8.6 - 10.3 mg/dLNOMS HealthcareChloride [Moles/Vol]102 mmol/L98 - 107 mmol/LNOMS HealthcareCO2 [Moles/Vol]27.7 mmol/L21.0 - 31.0 mmol/LNOMS HealthcareCreatinine (U) [Mass/Vol]1.05 mg/dL0.60 - 1.20 mg/dLNOMS HealthcareCREATININE CLR CALC TBNFYMXA08.97NOMS HealthcareGFR/1.73 sq M.predicted MDRD (S/P/Bld) [Vol rate/Area]58.236 mL/min/{1.73_m2}NOMS HealthcareGlobulin (S) [Mass/Vol]2.1 g/dL NOMS HealthcareGlucose [Mass/Vol]112 mg/kYNjsq02 - 100 mg/dLNOPR Healthcare Comment on above:Random Glucose Reference Range is dependent on time and content of last meal. Glucose of more than 200 mg/dL in a nonstressed, ambulatory subject supports the diagnosis of Diabetes Mellitus. ADA recommended reference range Interpretation and review of laboratory resultsAbnormalNOMS HealthcarePotassium [Moles/Vol]4 mmol/L3.5 - 5.1 mmol/LNOMS HealthcareProtein [Mass/Vol]5.7 g/dLLow 6.4 - 8.9 g/dLNOMS HealthcareSodium [Moles/Vol]135 mmol/LWyu709 - 145 mmol/LNOMS HealthcareUrea nitrogen [Mass/Vol]18 mg/dL7 - 25 mg/dLNOPR HealthcareNOMS HealthcareCreatinine [Mass/volume] in Serum or PlasmaOrdered By: Fabiola Marinelli on 06-05-9785Gpknbxeycm [Mass/Vol]1.05 mg/dLNormal0.60-1.20[facility] City HospitalComment on above:Performed By: #### CMP ####[place] [address] USAEosinophils [#/volume] in Blood by Automated countOrdered By: Fabiola Marinelli on 88-58-2707Zwqdsglcffv (Bld) [#/Vol]0.8 10*3/uLHigh0.0-0.45[facility] City HospitalComment on above: Performed By: #### SCAN CBC ####[place] [address] USAEosinophils/100 leukocytes in Blood by Automated countOrdered By: Fabiola Marinelli on 38-70-4967Qfvsnivjtzn/100 WBC (Bld)34.0 %Normal. [facility] City HospitalComment on above:Performed By: #### SCAN CBC ####[address] Erythrocyte distribution width [Ratio] by Automated countOrdered By: Fabiola Marinelli on 02-41-6797Qwebaxtpbns distribution width (RBC) [Ratio]15.3 %Buzdkg06.9-15.3 [facility] HospitalComment on above:Performed By: #### SCAN CBC ####[address] Erythrocyte morphology finding [Identifier] in BloodOrdered By: Fabiola Marinelli on 06-49-5596HWG morphology finding Nom (Bld)N/AFPremier Health Erythrocytes [#/volume] in Blood by Automated countOrdered By: Fabiola Marinelli on 23-71-6649SVA (Bld) [#/Vol]3.37 10*6/uLLow3.60-5.00[facility] HospitalComment on above:Performed By: #### SCAN CBC ####[place] [address] USAGlomerular filtration rate [Volume Rate/Area] in Serum, Plasma or Blood by CreatinineOrdered By: Fabiola Marinelli on 50-88-6121Qxwxdrgtxc filtration rate [Volume Rate/Area] in Serum, Plasma or Blood by Gxwwzfidxv15.236 mL/MinSalem City HospitalGlucose [Mass/volume] in Serum or PlasmaOrdered By: Fabiola Marinelli on 77-47-3303Kblbyul [Mass/Vol]112 mg/wNLdak57-828QvselzsamSalem City HospitalComment on above: Result Comment: Random Glucose Reference Range is dependent on time and content of last meal. Glucose of more than 200 mg/dL in a nonstressed, ambulatory subject supports the diagnosis of Diabetes Mellitus. ADA recommended reference rangePerformed By: #### CMP ####[place] [address] USAHematocrit [Volume Fraction] of Blood by Automated countOrdered By: Fabiola Marinelli on 94-68-5951Bqfdebvnmx (Bld) [Volume fraction]32.5 % Low34.0-46.4FPremier HealthComment on above:Performed By: #### SCAN CBC ####[place] [address] USAHemoglobin [Mass/volume] in BloodOrdered By: Fabiola Marinelli on 08-09-2025 Hemoglobin (Bld) [Mass/Vol]11.1 g/dLLow11.8-15.4FPremier HealthComment on above:Performed By: #### SCAN CBC ####[place] [address] USALeukocytes [#/volume] corrected for nucleated erythrocytes in Blood by Automated counOrdered By: Fabiola Marinelli on 47-76-3191OJO corrected for nucl RBC Auto (Bld) [#/Vol]2.3 10*3/uLLow 3.8-11.6FPremier HealthLeukocytes [#/volume] in Blood by Automated countOrdered By: Fabiola Marinelli on 51-56-8020BWR (Bld) [#/Vol]2.3 10*3/uL Low3.8-11.6FPremier HealthComment on above:Performed By: #### SCAN CBC ####[place] [address] USALymphocytes [#/volume] in Blood by Automated countOrdered By: Fabiola Marinelli on 74-78-2671Vyljpkevqtn (Bld) [#/Vol]0.4 10*3/uLLow1.00-4.8[facility] City HospitalComment on above:Performed By: #### SCAN CBC ####[address] [address] USALymphocytes/100 leukocytes in Blood by Automated countOrdered By: Fabiola Marinelli on 08-09-2025 Lymphocytes/100 WBC (Bld)16.3 %Normal.[facility] City HospitalComment on above:Performed By: #### SCAN CBC ####[address] [address] [facility] [Entitic mass] by Automated countOrdered By: Fabiola Marinelli on 86-14-1719GSE (RBC) [Entitic mass]32.9 jaRgzxwc36.7-34.3 [facility] HospitalComment on above:Performed By: #### SCAN CBC ####[place] [address] [facility] Auto (RBC) [Mass/Vol]Ordered By: Fabiola Marinelli on 44-00-0456MDJL (RBC) [Mass/Vol] 34.1 g/dL32.0-35.0[facility] CenterV [Entitic volume] by Automated countOrdered By: Fabiola Marinelli on 00-28-2023YFH (RBC) [Entitic vol]96.4 fL Bnvfhf37-793AlkbahlkdSalem City HospitalComment on above:Performed By: #### SCAN CBC ####[place] [address] USAMonocytes [#/volume] in Blood by Automated countOrdered By: Fabiola Marinelli on 68-13-0815Xeeioppjj (Bld) [#/Vol]0.4 10*3/uLNormal0.0-0.8[facility] HospitalComment on above:Performed By: #### SCAN CBC ####[place] [address] USAMonocytes/100 leukocytes in Blood by Automated countOrdered By: Fabiola Marinelli on 08-09-2025 Monocytes/100 WBC (Bld)17.8 %Normal.[facility] City HospitalComment on above:Performed By: #### SCAN CBC ####[place] [address] [place] [address] USANeutrophils [#/volume] in Blood by Automated count Ordered By: Fabiola Marinelli on 29-62-5630Cgzopommkhb (Bld) [#/Vol]0.7 10*3/uLLow 1.8-7.7FPremier HealthComment on above:Performed By: #### SCAN CBC ####[place] [address] [place] Neutrophils/100 leukocytes in Blood by Automated countOrdered By: Fabiola Marinelli on 31-76-4639Dbmzjrlzqvc/100 WBC (Bld)31.4 %Normal.[facility] City HospitalComment on above:Performed By: #### SCAN CBC ####[place] [address] USANo Panel InformationOrdered By: Fabiola Marinelli on 31-40-477298.97Sal[facility] City HospitalNucleated erythrocytes [Presence] in Blood by Automated countOrdered By: Fabiola Marinelli on 05-23-8632Dcufsuzrn RBC Auto Ql (Bld)0.2 /100{WBC}0-0.5FPremier HealthOvalocytes [Presence] in Blood by Light microscopyOrdered By: Fabiola Marinelli on 70-80-2118Nqfnsgfsgd LM Ql (Bld)SlightSalem City Hospital Platelet adequacy [Presence] in Blood by Light microscopyOrdered By: Fabiola Marinelli on 01-32-4325Ctocskjwo LM Ql (Bld)DecreasedNormalSalem City HospitalPlatelet mean volume [Entitic volume] in Blood by Automated countOrdered By: Fabiola Marinelli on 63-73-9718Qcnwwgcz mean volume (Bld) [Entitic vol]9.2 fLNormal 6.3-10.7FPremier HealthComment on above:Performed By: #### SCAN CBC ####[place] [address] [place] [id number] USAPlatelet morphology finding [Identifier] in BloodOrdered By: Fabiola Marinelli on 41-14-8084Euuhfxpp morphology finding Nom (Bld)NormalNormalSalem City HospitalPlatelets [#/volume] in Blood by Automated countOrdered By: Fabiola Marinelli on 79-78-5445Xxlhniwda (Bld) [#/Vol]41 10*3/rZMqj837-229EerkgbqusSalem City HospitalComment on above:Performed By: #### SCAN CBC ####[address] [address] USAPoikilocytosis [Presence] in Blood by Light microscopyOrdered By: Fabiola Marinelli on 08-09-2025 Poikilocytosis LM Ql (Bld)SlightSalem City HospitalPotassium [Moles/volume] in Serum or PlasmaOrdered By: Fabiola Marinelli on 90-18-6577Xrducircw [Moles/Vol]4.0 mmol/LNormal3.5-5.1FPremier HealthComment on above:Performed By: #### CMP ####[place] [address] USAProtein [Mass/volume] in Serum or PlasmaOrdered By: Fabiola Marinelli on 17-80-3461Bcudjhc [Mass/Vol]5.7 g/dLLow6.4-8.9Sal[facility] City HospitalComment on above:Performed By: #### CMP ####[place] [address] USAScan and CBCon 70-12-4514Joah Corpuscular HGB Conc34.1 g/dINxkhpd40.0-35.0The [facility]health Physician GroupComment on above:Performed By: #### SCAN CBC ####[address] [address] USANRBC%0.2 /100{WBC}Normal0-0.5The [facility] Physician GroupComment on above:Performed By: #### SCAN CBC ####[address] [address] USAOvalocytesSlight NormalThe [facility]health Physician GroupComment on above:Performed By: #### SCAN CBC ####[place] [address] [place] Platelet EstimateDecreasedNormalShorePoint Health Port Charlotte Physician [facility] Medical CenterComment on above:Performed By: #### SCAN CBC ####[address] [address] USAPlatelet MorphologyNormalNormalNoAtrium Health Cabarrus Physician [facility] Medical CenterComment on above:Result Comment: PERFORMED BY:[place] [address] [place], [place] [phone] MEDICAL BARBIE BRUCE M.D.Performed By: #### SCAN CBC ####[address] [address] USAPoikilocytosisSlightNoAtrium Health Cabarrus Physician [facility] Medical CenterComment on above:Performed By: #### SCAN CBC ####[address] [address] USAWhite Blood Count2.3 [CFU]/mLLow3.8-11.6The [facility] Physician GroupComment on above: Performed By: #### SCAN CBC ####[address] [address] USASerum globulin measurement by calculation (mass/volume)Ordered By: Fabiola Mrainelli on 16-33-6842Qbsavhbv (S) [Mass/Vol]2.1 g/dL The Jewish HospitalComment on above:Performed By: #### CMP ####[address] [address] USASerum or plasma albumin/globulin mass ratioOrdered By: Fabiola Marinelli on 08-09-2025 Albumin/Globulin [Mass ratio]1.7 {ratio}[facility] Comment on above:Performed By: #### CMP ####[place] [address] USASerum or plasma anion gap determinationOrdered By: Fabiola Marinelli on 46-23-3030Xbfrr gap [Moles/Vol]9.3 mmol/LNormal6.0-15.0 [facility] HospitalComment on above:Performed By: #### CMP ####[address] [place] [address] USASodium [Moles/volume] in Serum or PlasmaOrdered By: Fabiola Marinelli on 99-05-7905Rvqsjy [Moles/Vol]135 mmol/VHrz110-209FmwzxwngcSalem City HospitalComment on above:Performed By: #### CMP ####[facility] [address] [place] [address] USAUrea nitrogen [Mass/volume] in Serum or Plasma Ordered By: Fabiola Marinelli on 17-52-6530Tgsb nitrogen [Mass/Vol]18 mg/dLNormal7-25 [facility] HospitalComment on above:Performed By: #### CMP ####[facility] [address] [place] [address] USACopper, serumon 41-36-1759UEFGDC789 ug/dL80 - 158 ug/dLNOMS HealthcareComment on above: This test was developed and its performance characteristics determined by [employer]. It has not been cleared or approved by the Food and Drug Administration. Detection Limit = 5 Performed at: [address] [id number] Aeronautical Design Engineer: Maxine Briones MD, Phone: [phone] [facility] HealthcareIMMUNOGLOBULINS A/E/G/M, QN ([facility])on 62-87-3150LLFXYGCXBWKOZW A, SERUMmg/dL87 - 352 mg/dLNOMS HealthcareComment on above:Result confirmed on concentration.IMMUNOGLOBULIN E6 - 495NOMS HealthcareComment on above:Performed at: [address] [id number] Aeronautical Design Engineer: Lang Knight PhD, Phone: [phone] Performed at: [address] [id number] Aeronautical Design Engineer: Maxine Briones MD, Phone: [phone] IMMUNOGLOBULIN G770 mg/dL586 - 1602 mg/dLNOPR HealthcareIMMUNOGLOBULIN M, SERUM mg/dL26 - 217 mg/dLNOMS HealthcareComment on above:Result confirmed on concentration.[facility] HealthcareCeruloplasminon 97-20-2387HZOIVVAPLLYBD68.4 mg/dL 19.0 - 39.0 mg/dLNOMS HealthcareComment on above:Performed at: - [facility] [address] [id number] Aeronautical Design Engineer: Lang Knight PhD, Phone: [phone] NOM HealthcareCeruloplasminon 30-46-0715Buxeibtrfssnk20.4 mg/aVDqzmli89.0-39.0 The [facility] Physician GroupComment on above:Result Comment: Performed at: CB - [facility] [address] [id number] Aeronautical Design Engineer: Lang Knight PhD, Phone: [phone] BY:[address] [phone] MEDICAL DIRECTORARIEL BRUCE M.D.Performed By: #### CERULOP ####[facility] ,Comprehensive Metabolic Panelon 21-32-6691Clchwkf [Mass/Vol]3.6 g/dLNormal3.5-5.7The [facility] Physician GroupComment on above:Performed By: #### NERY, SCAN CBC, FOL, B12, FE and TIBC, CMP ####[place] [address] USAAlbumin/Globulin [Mass ratio]1.6 {ratio}NormalThe [facility]health Physician GroupComment on above:Performed By: #### NERY, SCAN CBC, FOL, B12, FE and TIBC, CMP ####[place] [address] USAALP [Catalytic activity/Vol]99 U/OVikbgp44-344 The [facility] Physician GroupComment on above:Performed By: #### NERY, SCAN CBC, FOL, B12, FE and TIBC, CMP ####[place] [address] USAALT [Catalytic activity/Vol]12 U/LNormal7-52The [facility] Physician GroupComment on above:Performed By: #### NERY, SCAN CBC, FOL, B12, FE and TIBC, CMP ####[address] [address] USAAnion gap [Moles/Vol]7.2 mmol/LNormal6.0-15.0The [facility] Physician GroupComment on above:Performed By: #### NERY, SCAN CBC, FOL, B12, FE and TIBC, CMP ####[place] [address] USAAST [Catalytic activity/Vol]26 U/PQjyxuc02-58Zcp [facility] Physician GroupComment on above:Performed By: #### NERY, SCAN CBC, FOL, B12, FE and TIBC, CMP ####[place] [address] USABilirubin [Mass/Vol]0.9 mg/dLNormal0.3-1.0The [facility] Physician GroupComment on above:Performed By: #### NERY, SCAN CBC, FOL, B12, FE and TIBC, CMP ####[place] [address] USACalcium [Mass/Vol]8.7 mg/dLNormal8.6-10.3The [facility] Physician GroupComment on above:Performed By: #### NERY, SCAN CBC, FOL, B12, FE and TIBC, CMP ####[place] [address] USAChloride [Moles/Vol]107 mmol/MOxolys36-657Sne [facility] Physician GroupComment on above:Performed By: #### NERY, SCAN CBC, FOL, B12, FE and TIBC, CMP ####[place] [address] USACO2 [Moles/Vol]28.1 mmol/ELboohk48.0-31.0The [facility] Physician GroupComment on above:Performed By: #### NERY, SCAN CBC, FOL, B12, FE and TIBC, CMP ####[place] [address] USACreatinine [Mass/Vol]0.95 mg/dLNormal0.60-1.20The [facility] Physician GroupComment on above:Performed By: #### NERY, SCAN CBC, FOL, B12, FE and TIBC, CMP ####[place] [address] USACreatinine Clr Calc Qxuwlqde27.54NormOrlando Health - Health Central Hospital Physician GroupComment on above:Performed By: #### ENRY, SCAN CBC, FOL, B12, FE and TIBC, CMP ####[place] [address] USAGFR/1.73 sq M.predicted MDRD (S/P/Bld) [Vol rate/Area]mL/min/{1.73_m2} NormalThe [facility]health Physician GroupComment on above:Performed By: #### NERY, SCAN CBC, FOL, B12, FE and TIBC, CMP ####[place] [address] USAGlobulin (S) [Mass/Vol]2.2 g/dLNoAtrium Health Cabarrus Physician GroupComment on above:Performed By: #### NERY, SCAN CBC, FOL, B12, FE and TIBC, CMP ####[place] [address] USAGlucose [Mass/Vol]99 mg/wJCnveon91-072Jyw [facility] Comment on above:Result Comment: Random Glucose Reference Range is dependent on time and content of last meal. Glucose of more than 200 mg/dL in a nonstressed, ambulatory subject supports the diagnosis of Diabetes Mellitus. ADA recommended reference rangePerformed By: #### NERY, SCAN CBC, FOL, B12, FE and TIBC, CMP ####[place] [address] [place] Potassium [Moles/Vol]4.3 mmol/LNormal3.5-5.1The [facility] Physician GroupComment on above:Performed By: #### NERY, SCAN CBC, FOL, B12, FE and TIBC, CMP ####[place] [address] USAProtein [Mass/Vol]5.8 g/dLLow6.4-8.9The [facility] Physician GroupComment on above: Performed By: #### NERY, SCAN CBC, FOL, B12, FE and TIBC, CMP ####[place] [address] USASodium [Moles/Vol]138 mmol/FDbbvbh212-732Rig [facility] Physician [facility] CenterComment on above:Performed By: #### NERY, SCAN CBC, FOL, B12, FE and TIBC, CMP ####[place] [address] USAUrea nitrogen [Mass/Vol]12 mg/dLNormal 7-25The [facility] Physician GroupComment on above:Performed By: #### NERY, SCAN CBC, FOL, B12, FE and TIBC, CMP ####[place] [address] USACopperon 00-55-8219Romcus970 ug/oPZtdeao09-247Ulp [facility] Physician [facility] CenterComment on above:Result Comment: This test was developed and its performance characteristics determined by [employer]. It has not been cleared or approved by the Food and Drug Administration. Detection Limit = 5 Performed at: [address] [id number] Aeronautical Design Engineer: Maxine Briones MD, Phone: [phone] BY:[address] [place] [phone] MEDICAL DIRECTORARIEL BRUCE M.D.Performed By: #### CU ####[facility] ,Ferritin [Mass/volume] in Serum or Plasma Ordered By: Fabiola Marinelli on 55-11-8072Hjylgfqb [Mass/Vol]125.3 ng/mLNormal 11.0-306.8[facility] HospitalComment on above:Performed By: #### NERY, SCAN CBC, FOL, B12, FE and TIBC, CMP ####[place] [address] USAFolateon 74-42-3125Glhwmr0.9 ng/mLNormal>5.9 The [facility] Physician [facility] CenterComment on above:Result Comment: Folate reference range: >5.9 ng/ml The WHO technical consultation on folate and vitamin b12 deficiencies has determined that folate concentrations less than 4 ng/ml are considered deficient.PERFORMED BY:[facility] [place] [place], [place] [phone] MEDICAL DIRECTORARIEL BRUCE M.D.Performed By: #### NERY, SCAN CBC, FOL, B12, FE and TIBC, CMP ####[facility] [id number] [address] USAFolate [Mass/volume] in Serum or PlasmaOrdered By: Fabiola Marinelli on 32-38-1579Jdlpdo [Mass/Vol]9.9 ng/mL >5.9Sal[facility] City HospitalIgE [Units/volume] in Serum or Plasma Ordered By: Fabiola Marinelli on 59-47-3026XuB Qn<2 [IU]/mLLow6-495Sal[facility] City HospitalImmunoglobulins A/E/G/M, Qnon 55-48-1829Fdligzkjnegtgn A, Serum<5 Tfzrul24-326Nvy [facility] Physician GroupComment on above:Result Comment: Result confirmed on concentration.Performed By: #### IMM GAME ####[facility] ,Immunoglobulin E<8Scatng0-120Nta Adventhealth Physician GroupComment on above:Result Comment: Performed at: - [facility] [id number] Aeronautical Design Engineer: Lang Knight PhD, Phone: [phone] Performed at: [facility] [id number] Aeronautical Design Engineer: Maxine Briones MD, Phone: [phone] BY:[facility] [place], [place] [phone] MEDICAL DIRECTORGIULIANO BRUCE M.D.Performed By: #### IMM GAME ####[facility] ,Immunoglobulin G770 mg/xRLhghrx705-8785Mum [facility]health Physician GroupComment on above:Performed By: #### IMM GAME ####[facility] , Immunoglobulin M, Serum<4Tzwnjp50-729Qso [facility] Physician GroupComment on above:Result Comment: Result confirmed on concentration.Performed By: #### IMM GAME ####[facility] ,Iron [Mass/volume] in Serum or PlasmaOrdered By: Fabiola Marinelli on 54-37-8209Ehul [Mass/Vol]102 ug/oPPfzbwq45-007PzpayzxyeSalem City HospitalComment on above:Performed By: #### NERY, SCAN CBC, FOL, B12, FE and TIBC, CMP ####[place] [address] USAIron and TIBC Profileon 08-02-2025% Iron Kztjuolfwv14.2 %Pbcalx51-33Izb Special Care HospitalComment on above:Performed By: #### NERY, SCAN CBC, FOL, B12, FE and TIBC, CMP ####[place] [address] USATotal Iron Binding Lkacrswh470 ug/iQQowsrz704-820Fmd [facility] Physician GroupComment on above:Performed By: #### NERY, SCAN CBC, FOL, B12, FE and TIBC, CMP ####[place] [id number] USAPlatelets Large [Presence] in Blood by Light microscopyOrdered By: Fabiola Marinelli on 13-82-8804Tjvseemvf Large LM Ql (Bld)[facility] Doctors HospitalPolychromasia [Presence] in Blood by Light microscopyOrdered By: Fabiola Marinelli on 12-13-9626Kpyjibczhgjou LM Ql (Bld)Slight [facility] Health Institutecan and CBCon 16-12-3866Nqtsgzvarhpt Ql (Bld) [facility] Medical CenterComment on above:Performed By: #### NERY, SCAN CBC, FOL, B12, FE and TIBC, CMP ####[place] [address] USABasophils (Bld) [#/Vol]0.0 10*3/uLNormal 0.0-0.2The [facility] Physician GroupComment on above:Performed By: #### NERY, SCAN CBC, FOL, B12, FE and TIBC, CMP ####[place] [address] USABasophils/100 WBC (Bld)0.2 %Normal.The [facility] Physician GroupComment on above:Performed By: #### NERY, SCAN CBC, FOL, B12, FE and TIBC, CMP ####[address]Eosinophils (Bld) [#/Vol]0.6 10*3/uLHigh0.0-0.45The [facility] Physician GroupComment on above:Performed By: #### NERY, SCAN CBC, FOL, B12, FE and TIBC, CMP ####[address] Eosinophils/100 WBC (Bld)33.3 %Normal.The [facility] Physician GroupComment on above:Performed By: #### NERY, SCAN CBC, FOL, B12, FE and TIBC, CMP ####[address] StreetErythrocyte distribution width (RBC) [Ratio]15.1 %Lqhhzk22.9-15.3The [facility] Physician GroupComment on above:Performed By: #### NERY, SCAN CBC, FOL, B12, FE and TIBC, CMP ####[address] Hematocrit (Bld) [Volume fraction]33.6 %Low34.0-46.4The [facility] Physician GroupComment on above:Performed By: #### NERY, SCAN CBC, FOL, B12, FE and TIBC, CMP ####[address] Hemoglobin (Bld) [Mass/Vol]11.4 g/dLLow11.8-15.4The [facility] Comment on above:Performed By: #### NERY, SCAN CBC, FOL, B12, FE and TIBC, CMP ####[place] [address] USALarge PlateletsSlightNormalThe Adventhealth Physician GroupComment on above:Result Comment: PERFORMED BY:[place] [address] [address] [place] [place], [place] [phone] MEDICAL DIRECTORARIEL BRUCE M.D.Performed By: #### NERY, SCAN CBC, FOL, B12, FE and TIBC, CMP ####[address] [address] USALymphocytes (Bld) [#/Vol]0.3 10*3/uLLow1.00-4.8The [facility] Physician GroupComment on above:Performed By: #### NERY, SCAN CBC, FOL, B12, FE and TIBC, CMP ####[place] [id number] USALymphocytes/100 WBC (Bld)18.4 %Normal. The [facility]health Physician GroupComment on above:Performed By: #### NERY, SCAN CBC, FOL, B12, FE and TIBC, CMP ####[address] [address] [facility] (RBC) [Entitic mass]32.4 wdDnoqpd62.7-34.3The [facility] Physician GroupComment on above:Performed By: #### NERY, SCAN CBC, FOL, B12, FE and TIBC, CMP ####[address] [address] [facility]TAV (RBC) [Entitic vol]95.6 cABnyrgr12-244Ota [facility] Physician GroupComment on above:Performed By: #### NERY, SCAN CBC, FOL, B12, FE and TIBC, CMP ####[address] [address] USAMean Corpuscular HGB Conc33.9 g/zLZqmfhl55.0-35.0The [facility] Physician GroupComment on above:Performed By: #### NERY, SCAN CBC, FOL, B12, FE and TIBC, CMP ####[place] [id number] USAMonocytes (Bld) [#/Vol]0.3 10*3/uLNormal0.0-0.8The [facility] Physician GroupComment on above:Performed By: #### NERY, SCAN CBC, FOL, B12, FE and TIBC, CMP ####[place] [address] USAMonocytes/100 WBC (Bld)18.3 %Normal.The [facility] Physician GroupComment on above:Performed By: #### NERY, SCAN CBC, FOL, B12, FE and TIBC, CMP ####[place] [address] USANeutrophils (Bld) [#/Vol]0.5 10*3/uLLow1.8-7.7The [facility] Physician GroupComment on above:Performed By: #### NERY, SCAN CBC, FOL, B12, FE and TIBC, CMP ####[place] [address] [place] Neutrophils/100 WBC (Bld)29.8 %Normal.The [facility] Physician GroupComment on above:Performed By: #### NERY, SCAN CBC, FOL, B12, FE and TIBC, CMP ####[place] [address] USANRBC%0.2 /100{WBC} Normal0-0.5The [facility] Physician GroupComment on above:Performed By: #### NERY, SCAN CBC, FOL, B12, FE and TIBC, CMP ####[place] [address] USAOvalocytesSlightNoAtrium Health Cabarrus Physician GroupComment on above:Performed By: #### NERY, SCAN CBC, FOL, B12, FE and TIBC, CMP ####[place] [address] [place] Platelet EstimateDecreasedNormalNoAtrium Health Cabarrus Physician GroupComment on above:Performed By: #### NERY, SCAN CBC, FOL, B12, FE and TIBC, CMP ####[place] [address] USAPlatelet mean volume (Bld) [Entitic vol]8.9 fLNormal6.3-10.7The [facility] Physician GroupComment on above:Performed By: #### NERY, SCAN CBC, FOL, B12, FE and TIBC, CMP ####[place] [address] USAPlatelet Morphology NormalNormalShorePoint Health Port Charlotte Physician GroupComment on above:Performed By: #### NERY, SCAN CBC, FOL, B12, FE and TIBC, CMP ####[place] [address] USAPlatelets (Bld) [#/Vol]45 10*3/uLLow 150-450The [facility] Physician GroupComment on above:Performed By: #### NERY, SCAN CBC, FOL, B12, FE and TIBC, CMP ####[place] [address] USAPoikilocytosisSHaywood Regional Medical Center Physician GroupComment on above:Performed By: #### NERY, SCAN CBC, FOL, B12, FE and TIBC, CMP ####[place] [address] [place] PolychromasiaSHaywood Regional Medical Center Physician GroupComment on above:Performed By: #### NERY, SCAN CBC, FOL, B12, FE and TIBC, CMP ####[place] [address] USARBC (Bld) [#/Vol]3.51 10*6/uL Low3.60-5.00The [facility] Physician GroupComment on above:Performed By: #### NERY, SCAN CBC, FOL, B12, FE and TIBC, CMP ####[place] [address] USASchistocytesFirstHealth Montgomery Memorial Hospital Physician GroupComment on above:Performed By: #### NERY, SCAN CBC, FOL, B12, FE and TIBC, CMP ####[place] [address] USAWBC (Bld) [#/Vol]1.8 10*3/uLLow3.8-11.6The [facility] Comment on above:Performed By: #### NERY, SCAN CBC, FOL, B12, FE and TIBC, CMP ####[address] [address] USAWhite Blood Count1.8 [CFU]/mLLow3.8-11.6The [facility] Physician GroupComment on above: Performed By: #### NERY, SCAN CBC, FOL, B12, FE and TIBC, CMP ####[address] [address] USASchistocytes [Presence] in Blood by Light microscopyOrdered By: Fabiola Marinelli on 08-02-2025 Schistocytes LM Ql (Bld)SlightRiverview Health Instituteerum or plasma IgA measurement (mass/volume)Ordered By: Fabiola Marinelli on 63-95-1940UlL [Mass/Vol] mg/zJFgw90-435ChmhuqofnRiverview Health Instituteerum or plasma IgG measurement (mass/volume)Ordered By: Fabiola Marinelli on 88-56-3691ZzG [Mass/Vol]770 mg/jZ896-9120 [facility] Instituteerum or plasma IgM measurement (mass/volume) Ordered By: Fabiola Marinelli on 02-74-0228XzJ [Mass/Vol]mg/iRNlu16-412XdezyhqnoRiverview Health Instituteerum or plasma ceruloplasmin measurement (mass/volume) Ordered By: Fabiola Marinelli on 35-02-3179Uwdjuebkgzcmb [Mass/Vol]29.4 mg/dL19.0-39.0 [facility] Health Instituteerum or plasma iron binding capacity measurement (mass/volume)Ordered By: Fabiola Mrainelli on 98-63-0383Adux binding capacity [Mass/Vol]298 ug/nL392-304FlkcyfygaRiverview Health Instituteerum or plasma iron saturation measurement (mass fraction)Ordered By: Fabiola Marinelli on 75-15-6006Ndfi saturation [Mass fraction]34.2 %20-50Salem City HospitalTransferrin [Mass/volume] in Serum or PlasmaOrdered By: Fabiola Marinelli on 55-75-6798Nfwujzlivml [Mass/Vol]213 mg/wJYoclnw132-176AymvutygwSalem City HospitalComment on above:Performed By: #### NERY, SCAN CBC, FOL, B12, FE and TIBC, CMP ####[address] [address] [facility] Vitamin B12 ser/plasOrdered By: Fabiola Marinelli on 68-67-0789Vixmbegol (Vitamin B12) [Mass/Vol]1113 pg/gYGwvz246-924HzfalsdbpSalem City HospitalComment on above:Performed By: #### NERY, SCAN CBC, FOL, B12, FE and TIBC, CMP ####[facility] [address] [place] [address] USAAlanine aminotransferase [Enzymatic activity/volume] in Serum or PlasmaOrdered By: Fabiola Marinelli on 44-98-3637LNZ [Catalytic activity/Vol]13 U/LNormal7-52Salem City HospitalComment on above:Performed By: #### CMP, SCAN CBC ####[place] [address] USAAlbumin [Mass/volume] in Serum or Plasma by Bromocresol green (BCG) dye binding metho Ordered By: Fabiola Marinelli on 87-88-5424Vaoxnhc BCG dye [Mass/Vol]3.5 g/dL3.5-5.7 Salem City HospitalAlkaline phosphatase [Enzymatic activity/volume] in Serum or PlasmaOrdered By: Fabiola Marinelli on 65-07-7085GCO [Catalytic activity/Vol]108 U/TZcdt56-534JeuhiazdsSalem City Hospital Comment on above:Performed By: #### CMP, SCAN CBC ####[place] [address] USAAppearance of UrineOrdered By: Marlon Alba on 70-56-2622Qgmsgpmxre (U)ClearNormalClearSalem City HospitalComment on above:Order Comment: Name Collection Type:: Clean-Voided MidstreamPerformed By: #### UA ####[address] [address] USAAspartate aminotransferase [Enzymatic activity/volume] in Serum or PlasmaOrdered By: Fabiola Marinelli on 42-46-4000IZV [Catalytic activity/Vol]24 U/QBsjcrz46-07RmmhfgjkaSalem City Hospital Comment on above:Performed By: #### CMP, SCAN CBC ####[place] [address] [place] [address] USABasophils [#/volume] in Blood by Automated countOrdered By: Fabiola Marinelli on 75-39-9899Mtrfdaxok (Bld) [#/Vol]0.0 10*3/uLNormal0.0-0.2FPremier HealthComment on above:Performed By: #### CMP, SCAN CBC ####[place] [address] [place] [address] USABasophils/100 leukocytes in Blood by Automated count Ordered By: Fabiola Marinelli on 84-23-1360Smqlccdlh/100 WBC (Bld)0.5 %Normal.Salem City HospitalComment on above:Performed By: #### CMP, SCAN CBC ####[address] [address] [place] Bilirubin Test strip Ql (U)Ordered By: Marlon Alba on 34-66-1306Gdysbwrxx Ql (U)NegativeNegativeSalem City HospitalBilirubin.total [Mass/volume] in Serum or PlasmaOrdered By: Fabiola Marinelli on 03-35-7290Kiwtujfbu [Mass/Vol]1.1 mg/dLHigh0.3-1.0Salem City HospitalComment on above: Performed By: #### CMP, SCAN CBC ####[address] [address] USACalcium [Mass/volume] in Serum or PlasmaOrdered By: Fabiola Marinelli on 18-33-2731Jpouayj [Mass/Vol]8.2 mg/dLLow8.6-10.3FPremier HealthComment on above:Performed By: #### CMP, SCAN CBC ####[address] [address] USACarbon dioxide, total [Moles/volume] in Serum or PlasmaOrdered By: Fabiola Marinelli on 58-05-6084AF3 [Moles/Vol]28.7 mmol/VAkwzmp27.0-31.0Salem City HospitalComment on above:Performed By: #### CMP, SCAN CBC ####[address] [address] USAChloride [Moles/volume] in Serum or Plasma Ordered By: Fabiola Marinelli on 91-34-8683Jsowoacn [Moles/Vol]104 mmol/DAntrqp31-731 Salem City HospitalComment on above:Performed By: #### CMP, SCAN CBC ####[address] [address] [place] Color of Urine by AutoOrdered By: Marlon Alba on 97-53-2917Vsqdy (U)Colorless NormalYellowSalem City HospitalComment on above:Order Comment: Name Collection Type:: Clean-Voided MidstreamPerformed By: #### UA ####[address] [address] USAComprehensive Metabolic Panelon 16-05-0182Nzfiybd [Mass/Vol]3.5 g/dLNormal3.5-5.7The [facility] Physician GroupComment on above:Performed By: #### CMP, SCAN CBC ####[address] [address] USACreatinine Clr Calc Jdfyfzkh31.14NormOrlando Health - Health Central Hospital Physician GroupComment on above:Result Comment: PERFORMED BY:[address] [place], [place] [phone] MEDICAL BARBIE BRUCE M.D.Performed By: #### CMP, SCAN CBC ####[address] [address] USAGFR/1.73 sq M.predicted MDRD (S/P/Bld) [Vol rate/Area]49.613 mL/min/{1.73_m2}NormalThe [facility]health Physician GroupComment on above:Performed By: #### CMP, SCAN CBC ####[address] [address] USAComprehensive metabolic panelon 18-09-6587Nspfuie [Mass/Vol]3.5 g/dL3.5 - 5.7 g/dLNOMS HealthcareAlbumin/Globulin [Mass ratio]1.8 {ratio}NOMS HealthcareALP [Catalytic activity/Vol]108 U/LHigh34 - 104 U/LNOMS HealthcareALT [Catalytic activity/Vol]13 U/L7 - 52 U/LNOMS HealthcareAnion gap [Moles/Vol]8.4 mmol/L6.0 - 15.0NOMS HealthcareAST [Catalytic activity/Vol]24 U/L 13 - 39 U/LNOMS HealthcareBilirubin [Mass/Vol]1.1 mg/dLHigh0.3 - 1.0 mg/dLNOMS HealthcareCalcium [Mass/Vol]8.2 mg/dLLow8.6 - 10.3 mg/dLNOMS HealthcareChloride [Moles/Vol]104 mmol/L98 - 107 mmol/LNOMS HealthcareCO2 [Moles/Vol]28.7 mmol/L 21.0 - 31.0 mmol/LNOMS HealthcareCreatinine (U) [Mass/Vol]1.2 mg/dL0.60 - 1.20 mg/dLNOMS HealthcareCREATININE CLR CALC GABFYCCJ80.14NOMS HealthcareGFR/1.73 sq M.predicted MDRD (S/P/Bld) [Vol rate/Area]49.613 mL/min/{1.73_m2}[facility] Healthcare Globulin (S) [Mass/Vol]2 g/dLNOMS HealthcareGlucose [Mass/Vol]93 mg/dL70 - 100 mg/dLNOPR HealthcareComment on above:Random Glucose Reference Range is dependent on time and content of last meal. Glucose of more than 200 mg/dL in a nonstressed, ambulatory subject supports the diagnosis of Diabetes Mellitus. ADA recommended reference range Interpretation and review of laboratory resultsAbnormalNOMS HealthcarePotassium [Moles/Vol]4.1 mmol/L3.5 - 5.1 mmol/LNOMS HealthcareProtein [Mass/Vol]5.5 g/dL Low6.4 - 8.9 g/dLNOMS HealthcareSodium [Moles/Vol]137 mmol/L136 - 145 mmol/LNOMS HealthcareUrea nitrogen [Mass/Vol]16 mg/dL7 - 25 mg/dLNOMS HealthcareNOMS HealthcareCreatinine [Mass/volume] in Serum or PlasmaOrdered By: Fabiola Marinelli on 40-67-2309Diadmrjdep [Mass/Vol]1.20 mg/dLNormal0.60-1.20Sal[facility] City HospitalComment on above:Performed By: #### CMP, SCAN CBC ####[place] [address] [place] [address] USAEosinophils [#/volume] in Blood by Automated countOrdered By: Fabiola Marinelli on 07-19-2025 Eosinophils (Bld) [#/Vol]0.5 10*3/uLHigh0.0-0.45Sal[facility] City HospitalComment on above:Performed By: #### CMP, SCAN CBC ####[place] [address] USAEosinophils/100 leukocytes in Blood by Automated countOrdered By: Fabiola Marinelli on 26-36-4748Gjuapgrdagg/100 WBC (Bld)28.2 %Normal.[facility] City HospitalComment on above:Performed By: #### CMP, SCAN CBC ####[address] [address] USAErythrocyte distribution width [Ratio] by Automated countOrdered By: Fabiola Marinelli on 47-46-3112Fybkytkhwda distribution width (RBC) [Ratio]14.8 %Vkrtrk66.9-15.3FPremier HealthComment on above: Performed By: #### CMP, SCAN CBC ####[place] [address] USAErythrocyte morphology finding [Identifier] in Blood Ordered By: Fabiola Marinelli on 28-27-4349ONZ morphology finding Nom (Bld)N/AFPremier HealthErythrocytes [#/volume] in Blood by Automated count Ordered By: Fabiola Marinelli on 75-00-5963IJQ (Bld) [#/Vol]3.33 10*6/uLLow3.60-5.00 [facility] City HospitalComment on above:Performed By: #### CMP, SCAN CBC ####[place] [address] [place] Glomerular filtration rate [Volume Rate/Area] in Serum, Plasma or Blood by CreatinineOrdered By: Fabiola Marinelli on 82-31-7781Eohgvaqoez filtration rate [Volume Rate/Area] in Serum, Plasma or Blood by Htetunfdtc66.613 mL/MinSalem City HospitalGlucose [Mass/volume] in Serum or PlasmaOrdered By: Fabiola Marinelli on 05-37-3999Svteiek [Mass/Vol]93 mg/fTPfdqes80-531LdqzoxtssSalem City HospitalComment on above:Result Comment: Random Glucose Reference Range is dependent on time and content of last meal. Glucose of more than 200 mg/dL in a nonstressed, ambulatory subject supports the diagnosis of Diabetes Mellitus. ADA recommended reference rangePerformed By: #### CMP, SCAN CBC ####[facility] [address] [place] [id number] USAGlucose [Mass/volume] in Urine by Test stripOrdered By: Marlon Alba on 49-80-5541Aqfghvm Test strip (U) [Mass/Vol]Normal mg/dLNoOhioHealth Marion General HospitalHematocrit [Volume Fraction] of Blood by Automated countOrdered By: Fabiola Marinelli on 07-19-2025 Hematocrit (Bld) [Volume fraction]32.4 %Low34.0-46.4FPremier HealthComment on above:Performed By: #### CMP, SCAN CBC ####[place] [address] [place] [id number] USAHemoglobin Test strip Ql (U) Ordered By: Marlon Alba on 30-97-2089Sbjnzqriyn Ql (U)NegativeNegTrumbull Memorial HospitalHemoglobin [Mass/volume] in BloodOrdered By: Fabiola Marinelli on 17-30-5454Zlorrdexkm (Bld) [Mass/Vol]10.9 g/dLLow11.8-15.4FPremier HealthComment on above:Performed By: #### CMP, SCAN CBC ####[facility] [address] [place] [id number] USAKetones [Presence] in Urine by Test stripOrdered By: Marlon Alba on 74-58-1602Yfdwhwb Ql (U)Negative NormalNegativeSalem City HospitalComment on above:Order Comment: Name Collection Type:: Clean-Voided MidstreamPerformed By: #### UA ####[address] [address] USALeukocyte esterase [Presence] in Urine by Test stripOrdered By: Marlon Alba on 32-57-3867Nruipzaun esterase Test strip Ql (U)NegativeNormalNegativeSalem City HospitalComment on above:Order Comment: Name Collection Type:: Clean-Voided MidstreamPerformed By: #### UA ####[address] [address] USALeukocytes [#/volume] corrected for nucleated erythrocytes in Blood by Automated counOrdered By: Fabiola Marinelli on 24-54-8761FJV corrected for nucl RBC Auto (Bld) [#/Vol]1.7 10*3/uLLow3.8-11.6FPremier HealthLeukocytes [#/volume] in Blood by Automated countOrdered By: Fabiola Marinelli on 60-70-5547MVT (Bld) [#/Vol]1.7 10*3/uLLow3.8-11.6FPremier HealthComment on above:Performed By: #### CMP, SCAN CBC ####[place] [address] [place] Lymphocytes [#/volume] in Blood by Automated countOrdered By: Faibola Marinelli on 73-81-7335Tvhjhvphzdc (Bld) [#/Vol]0.3 10*3/uLLow1.00-4.8Sal[facility] City HospitalComment on above:Performed By: #### CMP, SCAN CBC ####[address] [address] USALymphocytes/100 leukocytes in Blood by Automated countOrdered By: Fabiola Marinelli on 07-19-2025 Lymphocytes/100 WBC (Bld)20.0 %Normal.[facility] City HospitalComment on above:Performed By: #### CMP, SCAN CBC ####[address] [address] USAMCH [Entitic mass] by Automated countOrdered By: Fabiola Berumense on 97-59-4082SPU (RBC) [Entitic mass]32.7 kyRpguuo07.7-34.3 [facility] HospitalComment on above:Performed By: #### CMP, SCAN CBC ####[address] Auto (RBC) [Mass/Vol]Ordered By: Fabiola Yves on 15-82-2206CNCS (RBC) [Mass/Vol]33.6 g/dL32.0-35.0Sal[facility] City HospitalMCV [Entitic volume] by Automated countOrdered By: Fabiola Yves on 28-20-2148OHI (RBC) [Entitic vol]97.4 zRQtiosv45-832VliebohewSalem City HospitalComment on above: Performed By: #### CMP, SCAN CBC ####[place] [address] USAMonocytes [#/volume] in Blood by Automated count Ordered By: Fabiola Marinelli on 84-79-6813Qndxjaiap (Bld) [#/Vol]0.4 10*3/uLNormal 0.0-0.8[facility] City HospitalComment on above:Performed By: #### CMP, SCAN CBC ####[place] [address] USAMonocytes/100 leukocytes in Blood by Automated countOrdered By: Fabiola Marinelli on 70-17-2143Chcykynye/100 WBC (Bld)21.6 %Normal.[facility] Comment on above:Performed By: #### CMP, SCAN CBC ####[place] [address] USANeutrophils [#/volume] in Blood by Automated countOrdered By: Fabiola Marinelli on 24-42-1026Jxnxlnyyyer (Bld) [#/Vol]0.5 10*3/uLLow1.8-7.7FPremier HealthComment on above:Performed By: #### CMP, SCAN CBC ####[address] [place] [address] USANeutrophils/100 leukocytes in Blood by Automated countOrdered By: Fabiola Marinelli on 80-10-8833Pskgulosebz/100 WBC (Bld)29.7 %Normal.[facility] City HospitalComment on above:Performed By: #### CMP, SCAN CBC ####[address] [place] [address] USANitrite Test strip Ql (U)Ordered By: Marlon Alba on 35-22-6132Iiuhiga Ql (U)NegativeNegative [facility] City HospitalNo Panel InformationOrdered By: Fabiola Marinelli on 58-55-794669.14Sal[facility] City HospitalNucleated erythrocytes [Presence] in Blood by Automated countOrdered By: Fabiola Marinelli on 07-19-2025 Nucleated RBC Auto Ql (Bld)0.2 /100{WBC}0-0.5FPremier Health Ovalocytes [Presence] in Blood by Light microscopyOrdered By: Fabiola Marinelli on 90-37-4576Mrxekmiskb LM Ql (Bld)[facility] Medical CenterPlatelet adequacy [Presence] in Blood by Light microscopyOrdered By: Fabiola Marinelli on 67-12-5165Swfkufjjk LM Ql (Bld)DecreasedNoOhioHealth Marion General Hospital Platelet mean volume [Entitic volume] in Blood by Automated countOrdered By: Fabiola Marinelli on 21-10-9924Bdgutvfc mean volume (Bld) [Entitic vol]9.0 fLNormal6.3-10.7 [facility] HospitalComment on above:Performed By: #### CMP, SCAN CBC ####[facility] [place] [address] [facility] Platelet morphology finding [Identifier] in BloodOrdered By: Faibola Marinelli on 33-28-6115Vazxtgpj morphology finding Nom (Bld)N/AFPremier HealthPlatelets Large [Presence] in Blood by Light microscopyOrdered By: Fabiola Marinelli on 87-24-8483Mtrhvymsp Large LM Ql (Bld)[facility] Medical CenterPlatelets [#/volume] in Blood by Automated countOrdered By: Fabiola Marinelli on 51-80-3181Tbffwmjnm (Bld) [#/Vol]46 10*3/dQKrf017-809LgfadfjbjSalem City HospitalComment on above:Performed By: #### CMP, SCAN CBC ####[address] [place] [address] USAPoikilocytosis [Presence] in Blood by Light microscopyOrdered By: Fabiola Marinelli on 10-73-1603Skdrdgbwuvloib LM Ql (Bld)[facility] Medical CenterPolychromasia [Presence] in Blood by Light microscopyOrdered By: Fabiola Marinelli on 71-38-9095Lhhyksfpqhhvm LM Ql (Bld) [facility] Medical CenterPotassium [Moles/volume] in Serum or PlasmaOrdered By: Fabiola Marinelli on 84-54-6411Rcbuxvlzq [Moles/Vol]4.1 mmol/LNormal 3.5-5.1FPremier HealthComment on above:Performed By: #### CMP, SCAN CBC ####[address] [place] [address] USAProtein Test strip (U) [Mass/Vol]Ordered By: Marlon Alba on 07-19-2025 Protein (U) [Mass/Vol]NegativeNegativeSalem City HospitalProtein [Mass/volume] in Serum or PlasmaOrdered By: Fabiola Marinelli on 72-03-4739Vfrrdfd [Mass/Vol]5.5 g/dLLow6.4-8.9Sal[facility] City HospitalComment on above: Performed By: #### CMP, SCAN CBC ####[address] [address] USAScan and CBCon 76-79-3531Toayc PlateletsSlightNormal The Adventhealth Physician GroupComment on above:Result Comment: PERFORMED BY:[place] [address] [place], [place] [phone] MEDICAL DIRECTORARIEL BRUCE M.D.Performed By: #### CMP, SCAN CBC ####[address] [place] [address] USAMean Corpuscular HGB Conc33.6 g/hLQaguwp51.0-35.0The [facility] Physician GroupComment on above:Performed By: #### CMP, SCAN CBC ####[address] [address] USANRBC%0.2 /100{WBC}Normal0-0.5 The [facility] Physician GroupComment on above:Performed By: #### CMP, SCAN CBC ####[address] [address] [place] OvalocytesSlightShorePoint Health Port Charlotte Physician GroupComment on above:Performed By: #### CMP, SCAN CBC ####[address] [address] USAPlatelet EstimateDecreasedNormalShorePoint Health [place] Physician GroupComment on above:Performed By: #### CMP, SCAN CBC ####[address] [address] USAPoikilocytosisSlight NormalThe [facility] Physician GroupComment on above:Performed By: #### CMP, SCAN CBC ####[address] [address] [place] PolychromasiaSlightNoAtrium Health Cabarrus Physician GroupComment on above:Performed By: #### CMP, SCAN CBC ####[address] [address] USAWhite Blood Count1.7 [CFU]/mLLow3.8-11.6The Adventhealth Physician GroupComment on above:Performed By: #### CMP, SCAN CBC ####[address] [address] USASerum globulin measurement by calculation (mass/volume)Ordered By: Fabiola Marinelli on 15-86-1766Znyeaura (S) [Mass/Vol]2.0 g/dLThe [facility] Hospital Comment on above:Performed By: #### CMP, SCAN CBC ####[address] [address] USASerum or plasma albumin/globulin mass ratioOrdered By: Fabiola Marinelli on 36-92-0953Mzsduty/Globulin [Mass ratio]1.8 {ratio}NormalSalem City HospitalComment on above:Performed By: #### CMP, SCAN CBC ####[address] [address] USASerum or plasma anion gap determinationOrdered By: Fabiola Marinelli on 39-84-7122Txvnl gap [Moles/Vol]8.4 mmol/LNormal6.0-15.0Salem City HospitalComment on above:Performed By: #### CMP, SCAN CBC ####[address] [address] USASodium [Moles/volume] in Serum or PlasmaOrdered By: Fabiola Marinelli on 24-94-2796Xfbwyq [Moles/Vol]137 mmol/AJypyni106-483HrrtetkpfSalem City HospitalComment on above:Performed By: #### CMP, SCAN CBC ####[place] [address] USASpecific gravity Test strip (U) [Rel density]Ordered By: Marlon Alba on 75-62-9493Atahytit gravity (U) [Rel density]1.0051.001-1.030 [facility] City HospitalUrea nitrogen [Mass/volume] in Serum or Plasma Ordered By: Fabiola Marinelli on 86-13-0747Yckr nitrogen [Mass/Vol]16 mg/dLNormal7-25 [facility] City HospitalComment on above:Performed By: #### CMP, SCAN CBC ####[address] [address] [place] Urinalysison 50-99-7994Scfwwjwgg,UrineNegativeNormalNegativeNorth Ridge Medical Center Physician GroupComment on above:Order Comment: Name Collection Type:: Clean- Voided MidstreamPerformed By: #### UA ####[address] [address] USAGlucose Ql (U)NormalNormalNormalThe [facility] Physician GroupComment on above:Order Comment: Name Collection Type:: Clean- Voided MidstreamPerformed By: #### UA ####[address] [address] USANitrite,UrineNegativeNormalNegativeThe [facility] Physician GroupComment on above:Order Comment: Name Collection Type:: Clean-Voided MidstreamPerformed By: #### UA ####[address] [address] USAOccult Blood,UrineNegativeNormal NegativeThe [facility] Physician GroupComment on above:Order Comment: Name Collection Type:: Clean-Voided MidstreamResult Comment: PERFORMED BY:[address] TSERINGRobertoErnaROMA, [place] [phone] MEDICAL BARBIE BRUCE M.D.Performed By: #### UA ####[place] [address] USAProtein,UrineNegative NormalNegativeThe [facility] Physician GroupComment on above:Order Comment: Name Collection Type:: Clean-Voided MidstreamPerformed By: #### UA ####[place] [address] USASpecificy [place],Urine1.799Wgeczm7.001-1.030The [facility] Physician GroupComment on above:Order Comment: Name Collection Type:: Clean-Voided MidstreamPerformed By: #### UA ####[place] [address] USAUrobilinogen,UrineNormalNormalNormalThe [facility] Physician GroupComment on above:Order Comment: Name Collection Type:: Clean-Voided MidstreamPerformed By: #### UA ####[place] [address] USAUrobilinogen Test strip (U) [Mass/Vol]Ordered By: Marlon Alba on 07-19-2025 Urobilinogen (U) [Mass/Vol]Normal mg/dLNormCherrington HospitalpH of Urine by Test stripOrdered By: Marlon Alba on 54-68-1625zQ (U)6.5 [pH] Normal5.0-9.0Salem City HospitalComment on above:Order Comment: Name Collection Type:: Clean-Voided MidstreamPerformed By: #### UA ####[address] [place] [address] USAAFP Tumor Marker, Serumon 72-46-6377RNI Tumor Marker, Serum4.6 ng/mLNormal0.0-9.2The [facility] Physician GroupComment on above:Result Comment: [employer] Electrochemiluminescence Immunoassay (ECLIA) Values obtained withdifferent assay methods or kits cannot be used interchangeably. Results cannot be interpreted as absolute evidence of the presence or absence of malignant disease. This test is not interpretable in females. Performed at: - [facility] [id number] Aeronautical Design Engineer: Lang Knight PhD, Phone: [phone] By: #### VAHID SERUM, AFPTM, SPE ####[facility] , Band form neutrophils/100 leukocytes in Blood by Manual countOrdered By: Fabiola Marinelli on 45-41-0432Kvlf form neutrophils/100 WBC (Bld)1 %Normal0-5FPremier HealthComment on above:Performed By: #### DIFF CBC, CMP ####[address] [place] [address] [facility] Comprehensive Metabolic Panelon 83-68-9183Oomehqq [Mass/Vol]3.7 g/dLNormal 3.5-5.7The [facility] Physician GroupComment on above:Performed By: #### DIFF CBC, CMP ####[address] [place] [address] USAAlbumin/Globulin [Mass ratio]1.8 {ratio}NormalThe [facility] Physician [facility] Comment on above:Performed By: #### DIFF CBC, CMP ####[address] [place] [address] USAALP [Catalytic activity/Vol]120 U/L Afah77-605Gxy [facility]ician [facility] CenterComment on above:Performed By: #### DIFF CBC, CMP ####[address] [place] [address] USAALT [Catalytic activity/Vol]14 U/LNormal7-52The [facility] Comment on above:Performed By: #### DIFF CBC, CMP ####[facility] [facility] [place] [address] USAAnion gap [Moles/Vol]10.5 mmol/LNormal 6.0-15.0The [facility] Physician GroupComment on above:Performed By: #### DIFF CBC, CMP ####[address] Galvanpatricia [place] [address] USAAST [Catalytic activity/Vol]28 U/CNgeshh87-39Gqn [facility] Comment on above:Performed By: #### DIFF CBC, CMP ####[place] [place] [address] USABilirubin [Mass/Vol]1.3 mg/dLHigh 0.3-1.0The [facility] Physician GroupComment on above:Result Comment: Samples from patients who have taken Naproxen have shown spurious elevation in Total Bilirubin levels. A metabolite of Naproxen, O-desmethylnaproxen, has been shown to interfere with the Jenguyik-Grof method for measuring Total Bilirubin. Performed By: #### DIFF CBC, CMP ####[facility] [place] [address] USACalcium [Mass/Vol]8.5 mg/dLLow8.6-10.3The [facility] Physician GroupComment on above:Performed By: #### DIFF CBC, CMP ####[address] [place] [address] USAChloride [Moles/Vol] 102 mmol/KRogtqy85-831Ras [facility] Physician GroupComment on above:Performed By: #### DIFF CBC, CMP ####[facility] [facility] [place] [address] USACO2 [Moles/Vol]27.8 mmol/GLjasuv84.0-31.0The [facility] Physician GroupComment on above:Performed By: #### DIFF CBC, CMP ####[facility] [place] [address] [place] Creatinine [Mass/Vol]1.12 mg/dLNormal0.60-1.20The [facility] Comment on above:Performed By: #### DIFF CBC, CMP ####[address] [address] USACreatinine Clr Calc Nnqptoqh02.94 NormalNorth Ridge Medical Center Physician GroupComment on above:Result Comment: PERFORMED BY:[address] [place], [place] [phone] MEDICAL DIRECTORARIEL BRUCE M.D.Performed By: #### DIFF CBC, CMP ####[address] [address] USAGFR/1.73 sq M.predicted MDRD (S/P/Bld) [Vol rate/Area]53.896 mL/min/{1.73_m2} NormalThe Adventhealth Physician GroupComment on above:Performed By: #### DIFF CBC, CMP ####[place] [address] [place] Globulin (S) [Mass/Vol]2.1 g/dLNormalThe [facility] Physician GroupComment on above:Performed By: #### DIFF CBC, CMP ####[place] [address] USAGlucose [Mass/Vol]119 mg/tZRhiz52-011Rqq [facility] Physician GroupComment on above:Result Comment: Random Glucose Reference Range is dependent on time and content of last meal. Glucose of more than 200 mg/dL in a nonstressed, ambulatory subject supports the diagnosis of Diabetes Mellitus. ADA recommended reference rangePerformed By: #### DIFF CBC, CMP ####[address] [address] [place] Potassium [Moles/Vol]4.3 mmol/LNormal3.5-5.1The [facility] Physician GroupComment on above:Performed By: #### DIFF CBC, CMP ####[place] [address] USAProtein [Mass/Vol]5.8 g/dLLow6.4-8.9 The [facility] Physician GroupComment on above:Performed By: #### DIFF CBC, CMP ####[place] [address] USASodium [Moles/Vol]136 mmol/BJwufub024-351Ien [facility] Physician GroupComment on above: Performed By: #### DIFF CBC, CMP ####[facility] [address] [place] [address] USAUrea nitrogen [Mass/Vol]21 mg/dLNormal7-25The [facility] Physician GroupComment on above:Performed By: #### DIFF CBC, CMP ####[facility] [address] [place] [address] [facility] Comprehensive metabolic panelon 30-62-5587Firlbbp [Mass/Vol]3.7 g/dL3.5 - 5.7 g/dLNOMS HealthcareAlbumin/Globulin [Mass ratio]1.8 {ratio}NOMS HealthcareALP [Catalytic activity/Vol]120 U/LHigh34 - 104 U/LNOMS HealthcareALT [Catalytic activity/Vol]14 U/L7 - 52 U/LNOMS HealthcareAnion gap [Moles/Vol]10.5 mmol/L6.0 - 15.0NOMS HealthcareAST [Catalytic activity/Vol]28 U/L13 - 39 U/LNOMS HealthcareBilirubin [Mass/Vol]1.3 mg/dLHigh0.3 - 1.0 mg/dLNOPR HealthcareComment on above:Samples from patients who have taken Naproxen have shown spurious elevation in Total Bilirubin levels. A metabolite of Naproxen, O-desmethylnaproxen, has been shown to interfere with the Shanon-Felicitas method for measuring Total Bilirubin. Calcium [Mass/Vol]8.5 mg/dLLow8.6 - 10.3 mg/dLNOMS HealthcareChloride [Moles/Vol]102 mmol/L98 - 107 mmol/LNOMS HealthcareCO2 [Moles/Vol]27.8 mmol/L 21.0 - 31.0 mmol/LNOMS HealthcareCreatinine (U) [Mass/Vol]1.12 mg/dL0.60 - 1.20 mg/dLNOMS HealthcareCREATININE CLR CALC XFCJDEYS50.94NOMS HealthcareGFR/1.73 sq M.predicted MDRD (S/P/Bld) [Vol rate/Area]53.896 mL/min/{1.73_m2}[facility] Globulin (S) [Mass/Vol]2.1 g/dLNOPR HealthcareGlucose [Mass/Vol]119 mg/kCOtag85 - 100 mg/dLNOPR HealthcareComment on above:Random Glucose Reference Range is dependent on time and content of last meal. Glucose of more than 200 mg/dL in a nonstressed, ambulatory subject supports the diagnosis of Diabetes Mellitus. ADA recommended reference range Interpretation and review of laboratory resultsAbnormalNOMS HealthcarePotassium [Moles/Vol]4.3 mmol/L3.5 - 5.1 mmol/LNOMS HealthcareProtein [Mass/Vol]5.8 g/dL Low6.4 - 8.9 g/dLNOMS HealthcareSodium [Moles/Vol]136 mmol/L136 - 145 mmol/LNOMS HealthcareUrea nitrogen [Mass/Vol]21 mg/dL7 - 25 mg/dLNOPR HealthcareNOMS HealthcareDiff and CBCon 54-58-1137Bqhzlarfhmo distribution width (RBC) [Ratio] 15.2 %Zbudxs37.9-15.3The [facility] Physician GroupComment on above:Performed By: #### DIFF CBC, CMP ####[place] [address] USAHematocrit (Bld) [Volume fraction]34.5 %Mseaqe10.0-46.4The [facility] Physician GroupComment on above:Performed By: #### DIFF CBC, CMP ####[address] [address] [place] Hemoglobin (Bld) [Mass/Vol]11.6 g/dLLow11.8-15.4The [facility] Comment on above:Performed By: #### DIFF CBC, CMP ####[address] [address] USAMCH (RBC) [Entitic mass]32.9 pgNormal 24.7-34.3The [facility] Physician GroupComment on above:Performed By: #### DIFF CBC, CMP ####[place] [address] USAMCV (RBC) [Entitic vol]98.0 mZCudfld81-540Xyn [facility] Comment on above:Performed By: #### DIFF CBC, CMP ####[address] [address] USAMean Corpuscular HGB Conc33.5 g/dL Fhkvpe11.0-35.0The [facility] Physician GroupComment on above:Performed By: #### DIFF CBC, CMP ####[address] [address] USAOvalocytesModerateNormOrlando Health - Health Central Hospital Physician GroupComment on above: Performed By: #### DIFF CBC, CMP ####[address] [address] USAPlatelet EstimateDecreasedNormalNormOrlando Health - Health Central Hospital Physician [facility] CenterComment on above:Performed By: #### DIFF CBC, CMP ####[address] [address] USAPlatelet mean volume (Bld) [Entitic vol]9.0 fLNormal6.3-10.7The [facility] Physician GroupComment on above:Performed By: #### DIFF CBC, CMP ####[address] [address] USAPlatelet MorphologyNormalNormalNoWVUMedicine Harrison Community HospitalComment on above:Result Comment: PERFORMED BY:[address] [place], [place] [phone] MEDICAL DIRECTORARIEL BRUCE M.D.Performed By: #### DIFF CBC, CMP ####[address] [address] [place] Platelets (Bld) [#/Vol]57 10*3/zXZib855-190Gqv [facility] Physician GroupComment on above:Performed By: #### DIFF CBC, CMP ####[address] [address] USAPoikilocytosisModerateShorePoint Health Port [place] Physician [facility] Medical CenterComment on above:Performed By: #### DIFF CBC, CMP ####[address] [address] USARBC (Bld) [#/Vol]3.52 10*6/uLLow3.60-5.00The [facility] Physician GroupComment on above:Performed By: #### DIFF CBC, CMP ####[address] [address] USAWBC (Bld) [#/Vol]2.5 10*3/uLLow3.8-11.6The [facility] Physician [facility] Comment on above:Performed By: #### DIFF CBC, CMP ####[address] [address] USAWhite Blood Count2.5 [CFU]/mLLow 3.8-11.6The [facility] Physician [facility] CenterComment on above:Performed By: #### DIFF CBC, CMP ####[address] [address] USAEosinophils/100 leukocytes in Blood by Manual countOrdered By: Fabiola Marinelli on 32-05-1026Qryzddrhmdt/100 WBC (Bld)27 %[facility] Comment on above:Performed By: #### DIFF CBC, CMP ####[address] [address] USAImmunofixation,Serumon 07-12-2025 Immunofixation, SerumCommentNormal.The [facility] Physician GroupComment on above:Result Comment: No monoclonality detected.Performed By: #### VAHID SERUM, AFPTM, SPE ####[facility] ,Immunoglobulin A, Serum<4Tchjhs84-754Ggf [facility] Physician GroupComment on above:Result Comment: Result confirmed on concentration.Performed By: #### VAHID SERUM, AFPTM, SPE ####[facility] ,Immunoglobulin G525 mg/cNAecoep779-1922Hzt [facility] Physician GroupComment on above:Performed By: #### VAHID SERUM, AFPTM, SPE ####[facility] ,Immunoglobulin M, Serum<7Oefeat20-206Qsi [facility] Comment on above:Result Comment: Result confirmed on concentration. Performed at: CB - [facility] [id number] Aeronautical Design Engineer: Lang Knight PhD, Phone: [phone] By: #### VAHID SERUM, AFPTM, SPE ####[facility] ,Lymphocytes/100 leukocytes in Blood by Manual count Ordered By: Fabiola Marinelli on 76-27-6930Yzgwuniebur/100 WBC (Bld)20 %Cnfxwn64-17 [facility] City HospitalComment on above:Performed By: #### DIFF CBC, CMP ####[facility] [address] [place] [address] [place] Monocytes/100 leukocytes in Blood by Manual countOrdered By: Fabiola Marinelli on 09-61-7585Iqycxzooj/100 WBC (Bld)14 %High2-11[facility] Comment on above:Performed By: #### DIFF CBC, CMP ####[facility] [address] [place] [address] USANo Panel InformationOrdered By: Fabiola Marinelli on 04-93-7446Ykd observed g/dLNot ObservedSalem City HospitalComment.[facility] City HospitalProtein Electrophoresis, Serumon 91-32-0520Fgaur-1-Globulin0.3 g/dLNormal0.0-0.4The [facility] Comment on above:Performed By: #### VAHID SERUM, AFPTM, SPE ####[facility] ,Kdija-3-Duupegdw7.7 g/dLNormal0.4-1.0The [facility] Comment on above:Performed By: #### VAHID SERUM, AFPTM, SPE ####[facility] ,Beta Globulin0.8 g/dLNormal0.7-1.3The [facility] Comment on above:Performed By: #### VAHID SERUM, AFPTM, SPE ####[facility] ,Gamma Globulin0.4 g/dLNormal0.4-1.8The [facility] Comment on above:Performed By: #### VAHID SERUM, AFPTM, SPE ####[facility] ,M-SpikeNot ObservedNormalNot ObservedThe [facility] Comment on above:Performed By: #### VAHID SERUM, AFPTM, SPE ####[facility] ,SPE-NoteCommentNormal.The [facility]health Physician GroupComment on above:Result Comment: Protein electrophoresis scan will follow via computer, mail, or insulation batting machine operator delivery. Performed at: [facility] [address] [id number] Aeronautical Design Engineer: Lang Knight PhD, Phone: [phone] BY:[facility] [place] [place], [place] [phone] MEDICAL DIRECTORARIEL BRUCE M.D.Performed By: #### VAHID SERUM, AFPTM, SPE ####[facility] ,Segmented neutrophils/100 leukocytes in Blood by Manual countOrdered By: Fabiola Marinelli on 92-19-6208Vwnzwubwb neutrophils/100 WBC (Bld)38 %Lig18-32GchfbosldSalem City HospitalComment on above:Performed By: #### DIFF CBC, CMP ####[facility] [address] [place] [address] USASerum globulin measurement (mass/volume)Ordered By: Fabiola Marinelli on 29-09-6395Lghipzri (S) [Mass/Vol]2.3 g/dLNormal2.2-3.9[facility] City HospitalComment on above:Performed By: #### VAHID SERUM, AFPTM, SPE ####[facility] ,Serum or plasma IgA measurement (mass/volume)Ordered By: Fabiola Marinelli on 01-58-3320IzY [Mass/Vol]mg/mPNdp23-618NyjtfnwhmRiverview Health Instituteerum or plasma IgG measurement (mass/volume)Ordered By: Fabiola Marinelli on 82-30-7796TvH [Mass/Vol]525 mg/bMXyz421-1103RghxzwkyuRiverview Health Instituteerum or plasma IgM measurement (mass/volume)Ordered By: Fabiola Marinelli on 34-14-4001SzF [Mass/Vol]mg/xHWzf31-141 Riverview Health Instituteerum or plasma albumin measurement (mass/volume)Ordered By: Fabiola Marinelli on 64-21-1326Mscxjrx [Mass/Vol]3.1 g/dLNormal 2.9-4.4FPremier HealthComment on above:Performed By: #### VAHID SERUM, AFPTM, SPE ####[facility] ,Serum or plasma albumin/globulin mass ratioOrdered By: Fabiola Marinelli on 87-13-5848Wlgjmsp/Globulin [Mass ratio]1.3 {ratio}Normal0.7-1.7FPremier HealthComment on above:Performed By: #### VAHID SERUM, AFPTM, SPE ####[facility] ,Serum or plasma alpha 1 globulin measurement by electrophoresis (mass/volume)Ordered By: Fabiola Marinelli on 00-98-6874Zshmk 1 globulin Elph [Mass/Vol]0.3 g/dL0.0-0.4FSouthview Medical Centererum or plasma alpha 2 globulin measurement by electrophoresis (mass/volume)Ordered By: Fabiola Marinelli on 74-97-6055Gpsxm 2 globulin Elph [Mass/Vol] 0.7 g/dL0.4-1.0Riverview Health Instituteerum or plasma oyeda-9-emppiaxijep tumor marker measurement (mass/volume)Ordered By: Fabiola Marinelli on 72-55-0808EUP.tumor marker [Mass/Vol]4.6 ng/mL0.0-9.2FSouthview Medical Centererum or plasma beta globulin measurement by electrophoresis (mass/volume)Ordered By: Fabiola Marinelli on 24-86-9096Lfrt globulin Elph [Mass/Vol]0.8 g/dL0.7-1.3FSouthview Medical Centererum or plasma gamma globulin measurement by electrophoresis (mass/volume)Ordered By: Fabiola Marinelli on 07-12-2025 Gamma globulin Elph [Mass/Vol]0.4 g/dL0.4-1.8[facility] Serum total protein measurementOrdered By: Fabiola Marinelli on 72-87-6185Xyfevnd [Mass/Vol]5.4 g/dLNormal6.0-8.5FPremier HealthComment on above:Performed By: #### VAHID SERUM, AFPTM, SPE ####[facility] , Comprehensive Metabolic Panelon 75-16-0888Ypwtgji [Mass/Vol]3.6 g/dLNormal 3.5-5.7The [facility] Physician GroupComment on above:Performed By: #### CMP, SCAN CBC ####[address] [place] [address] USAAlbumin/Globulin [Mass ratio]1.9 {ratio}NormalThe [facility] Physician [facility] Comment on above:Performed By: #### CMP, SCAN CBC ####[address] [place] [address] USAALP [Catalytic activity/Vol]101 U/L Gcqcgu17-899Uac [facility] Physician GroupComment on above:Performed By: #### CMP, SCAN CBC ####[address] [address] USAALT [Catalytic activity/Vol]18 U/LNormal7-52The [facility] Physician GroupComment on above:Performed By: #### CMP, SCAN CBC ####[address] [place] [address] USAAnion gap [Moles/Vol]9.5 mmol/LNormal6.0-15.0The [facility] Physician GroupComment on above:Performed By: #### CMP, SCAN CBC ####[address] [address] USAAST [Catalytic activity/Vol]29 U/HViqchy74-17Sex [facility] Physician GroupComment on above:Performed By: #### CMP, SCAN CBC ####[address] [address] USABilirubin [Mass/Vol]0.9 mg/dL Normal0.3-1.0The [facility] Physician GroupComment on above:Performed By: #### CMP, SCAN CBC ####[address] [address] USACalcium [Mass/Vol]8.9 mg/dLNormal8.6-10.3The [facility] Comment on above:Performed By: #### CMP, SCAN CBC ####[facility] [place] [address] USAChloride [Moles/Vol]106 mmol/LNormal 98-107The [facility] Physician GroupComment on above:Performed By: #### CMP, SCAN CBC ####[address] [address] [place] CO2 [Moles/Vol]28.6 mmol/EStgmog09.0-31.0The [facility] Physician GroupComment on above:Performed By: #### CMP, SCAN CBC ####[address] [address] USACreatinine [Mass/Vol]0.88 mg/dLNormal0.60-1.20 The [facility] Physician GroupComment on above:Performed By: #### CMP, SCAN CBC ####[address] [address] [place] Creatinine Clr Calc Foiqbsfy59.55NormOrlando Health - Health Central Hospital Physician GroupComment on above:Result Comment: PERFORMED BY:[address] [place], [place] [phone] MEDICAL BARBIE BRUCE M.D.Performed By: #### CMP, SCAN CBC ####[address] [address] USAGFR/1.73 sq M.predicted MDRD (S/P/Bld) [Vol rate/Area]mL/min/{1.73_m2}NormalThe [facility] Physician GroupComment on above: Performed By: #### CMP, SCAN CBC ####[address] [address] USAGlobulin (S) [Mass/Vol]1.9 g/dLShorePoint Health Port Charlotte Physician [facility] Medical CenterComment on above:Performed By: #### CMP, SCAN CBC ####[address] [address] USAGlucose [Mass/Vol]106 mg/qSBndq28-275Wrw [facility] Physician GroupComment on above:Result Comment: Random Glucose Reference Range is dependent on time and content of last meal. Glucose of more than 200 mg/dL in a nonstressed, ambulatory subject supports the diagnosis of Diabetes Mellitus. ADA recommended reference rangePerformed By: #### CMP, SCAN CBC ####[facility] [address] [place] [address] USAPotassium [Moles/Vol]4.1 mmol/LNormal3.5-5.1The [facility] Physician GroupComment on above:Performed By: #### CMP, SCAN CBC ####[facility] [address] [place] [address] USAProtein [Mass/Vol]5.5 g/dLLow 6.4-8.9The [facility] Physician GroupComment on above:Performed By: #### CMP, SCAN CBC ####[address] [place] [address] USASodium [Moles/Vol]140 mmol/XAedocc911-774Qmh [facility] Physician GroupComment on above:Performed By: #### CMP, SCAN CBC ####[facility] [address] [place] [address] USAUrea nitrogen [Mass/Vol]15 mg/dLNormal 7-25The [facility] Physician GroupComment on above:Performed By: #### CMP, SCAN CBC ####[facility] [address] Comprehensive metabolic panelon 34-59-8619Oadneox [Mass/Vol]3.6 g/dL3.5 - 5.7 g/dLNOMS HealthcareAlbumin/Globulin [Mass ratio]1.9 {ratio}NOMS HealthcareALP [Catalytic activity/Vol]101 U/L34 - 104 U/LNOMS HealthcareALT [Catalytic activity/Vol]18 U/L7 - 52 U/LNOMS HealthcareAnion gap [Moles/Vol]9.5 mmol/L6.0 - 15.0NOMS HealthcareAST [Catalytic activity/Vol]29 U/L13 - 39 U/LNOMS Healthcare Bilirubin [Mass/Vol]0.9 mg/dL0.3 - 1.0 mg/dLNOMS HealthcareCalcium [Mass/Vol]8.9 mg/dL8.6 - 10.3 mg/dLNOMS HealthcareChloride [Moles/Vol]106 mmol/L98 - 107 mmol/LNOMS HealthcareCO2 [Moles/Vol]28.6 mmol/L21.0 - 31.0 mmol/LNOMS Healthcare Creatinine (U) [Mass/Vol]0.88 mg/dL0.60 - 1.20 mg/dLNOWright Memorial HospitalCREATININE CLR CALC EZYGPLZO65.55NOMS HealthcareESTIMATED GFRNOPR HealthcareGlobulin (S) [Mass/Vol]1.9 g/dLNOPR HealthcareGlucose [Mass/Vol]106 mg/wDDrdu27 - 100 mg/dL NOM HealthcareComment on above:Random Glucose Reference Range is dependent on time and content of last meal. Glucose of more than 200 mg/dL in a nonstressed, ambulatory subject supports the diagnosis of Diabetes Mellitus. ADA recommended reference range Interpretation and review of laboratory resultsAbnormalNOPR HealthcarePotassium [Moles/Vol]4.1 mmol/L3.5 - 5.1 mmol/LNOMS HealthcareProtein [Mass/Vol]5.5 g/dL Low6.4 - 8.9 g/dLNOPR HealthcareSodium [Moles/Vol]140 mmol/L136 - 145 mmol/LNOMS HealthcareUrea nitrogen [Mass/Vol]15 mg/dL7 - 25 mg/dLNOWright Memorial HospitalNOPR HealthcareScan and CBCon 46-11-4297Ysalftldb (Bld) [#/Vol]0.0 10*3/uLNormal 0.0-0.2The [facility] Physician GroupComment on above:Performed By: #### CMP, SCAN CBC ####[facility] [place] [place] [address] USABasophils/100 WBC (Bld)0.6 %Normal.The Adventhealth Physician GroupComment on above:Performed By: #### CMP, SCAN CBC ####[facility] [address] [place] [address] USAEosinophils (Bld) [#/Vol]0.4 10*3/uLNormal 0.0-0.45The Adventhealth Physician GroupComment on above:Performed By: #### CMP, SCAN CBC ####[facility] [place], [place] [address] USAEosinophils/100 WBC (Bld)24.4 %Normal.The Adventhealth Physician GroupComment on above:Performed By: #### CMP, SCAN CBC ####[place] [address] USAErythrocyte distribution width (RBC) [Ratio] 15.2 %Zataaq07.9-15.3The Adventhealth Physician GroupComment on above:Performed By: #### CMP, SCAN CBC ####[place] [address] USAHematocrit (Bld) [Volume fraction]32.0 %Low34.0-46.4The Adventhealth Physician GroupComment on above:Performed By: #### CMP, SCAN CBC ####[place] [address] USAHemoglobin (Bld) [Mass/Vol]10.8 g/dLLow11.8-15.4The Adventhealth Physician GroupComment on above: Performed By: #### CMP, SCAN CBC ####[place] [address] USALymphocytes (Bld) [#/Vol]0.3 10*3/uLLow1.00-4.8The Adventhealth Physician GroupComment on above:Performed By: #### CMP, SCAN CBC ####[place] [address] [place] Lymphocytes/100 WBC (Bld)18.7 %Normal.The Adventhealth Physician GroupComment on above:Performed By: #### CMP, SCAN CBC ####[place] [address] USAMCH (RBC) [Entitic mass]33.2 fgJdtrnp90.7-34.3 The Adventhealth Physician GroupComment on above:Performed By: #### CMP, SCAN CBC ####[place] [address] USAMCV (RBC) [Entitic vol]98.4 yVJpybrf53-237Dst Adventhealth Physician GroupComment on above:Performed By: #### CMP, SCAN CBC ####[address] [address] USAMean Corpuscular HGB Conc33.8 g/dLNormal 32.0-35.0The Adventhealth Physician GroupComment on above:Performed By: #### CMP, SCAN CBC ####[address] [address] USAMonocytes (Bld) [#/Vol]0.3 10*3/uLNormal0.0-0.8The [facility] Comment on above:Performed By: #### CMP, SCAN CBC ####[address] [address] USAMonocytes/100 WBC (Bld)21.0 %Normal. The Adventhealth Physician GroupComment on above:Performed By: #### CMP, SCAN CBC ####[address] [address] [place] Neutrophils (Bld) [#/Vol]0.5 10*3/uLLow1.8-7.7The [facility] Comment on above:Performed By: #### CMP, SCAN CBC ####[address] [address] USANeutrophils/100 WBC (Bld)35.3 %Normal .The Adventhealth Physician GroupComment on above:Performed By: #### CMP, SCAN CBC ####[address] [address] USANRBC% 0.2 /100{WBC}Normal0-0.5The Adventhealth Physician GroupComment on above:Performed By: #### CMP, SCAN CBC ####[address] [address] USAOvalocytesSlightNormalThe [facility] Physician [facility] Comment on above:Performed By: #### CMP, SCAN CBC ####[address] [address] USAPlatelet EstimateDecreasedNormal NormalThe Adventhealth Physician GroupComment on above:Performed By: #### CMP, SCAN CBC ####[address] [address] [place] Platelet mean volume (Bld) [Entitic vol]8.5 fLNormal6.3-10.7The Adventhealth Physician GroupComment on above:Performed By: #### CMP, SCAN CBC ####[place] [address] USAPlatelet Morphology NormalNormalNormalThe Adventhealth Physician GroupComment on above:Result Comment: PERFORMED BY:[address] [place], [place] [phone] MEDICAL BARBIE BRUCE M.D.Performed By: #### CMP, SCAN CBC ####[address] [address] USAPlatelets (Bld) [#/Vol]43 10*3/dBLry078-180Vot [facility]health Physician GroupComment on above:Performed By: #### CMP, SCAN CBC ####[place] [address] USARBC (Bld) [#/Vol]3.25 10*6/uL Low3.60-5.00The [facility]ician [facility] CenterComment on above:Performed By: #### CMP, SCAN CBC ####[address] [address] USAWBC (Bld) [#/Vol]1.5 10*3/uLLow3.8-11.6The [facility] Comment on above:Performed By: #### CMP, SCAN CBC ####[address] [address] USAWhite Blood Count1.5 [CFU]/mLLow 3.8-11.6The [facility]ician [facility] CenterComment on above:Performed By: #### CMP, SCAN CBC ####[place] [address] USAMain OR Intraoperative Recordon [id number] OR Intraoperative RecordMain OR Intraoperative Record IntraOp Document Type FTURO Summary Primary Physician: MIGUEL ANGEL JASSO, Marlon Rangel Finalized Date/Time: 07/04/25 13:48:35 Pt. Name: MOJGAN PÉREZ /Sex: 1955 Female Med Rec #: [id number] Physician: Marlon VALENZUELA MD Financial #: [id number] Pt. Type: O Room/Bed: / Admit/Disch: 07/04/25 12:45:26 - Institution: Case Times FTURO Entry 1 Patient Times In Room 07/04/25 13:33:00 Out Room 07/04/25 13:43:00 Procedure Times Start 07/04/25 13:36:00 Stop 07/04/25 13:40:00 Anesthesia Times Last Modified By: Dedra SALDANA, Kaya Toledo 07/04/25 13:48:07 Case Attendance FTURO Entry 1 Entry 2 Entry 3 Case Attendee MIGUEL ANGEL JASSO, Marlon Colmenares RN, Sawyer Jennings Role Performed Surgeon - Primary Building Service Worker - Primary Scrub - Primary Time In 07/04/25 13:33:00 07/04/25 13:33:00 07/04/25 13:33:00 Time Out 07/04/25 13:43:00 07/04/25 13:43:00 07/04/25 13:43:00 Procedure CYSTOSCOPY LOCAL(.) CYSTOSCOPY LOCAL(.) CYSTOSCOPY LOCAL(.) Comments Last Modified By: Dedra SALDANA, Kaya Colmenares RN, Kaya Colmenares RN, Kaya Toledo 07/04/25 Avis Toledo 07/04/25 Avis P 07/04/25 13:48:13 13:48:13 13:48:13 Surgical Procedures FTURO Entry 1 Procedure Description Procedure CYSTOSCOPY LOCAL Modifiers . Surgeon Description CYSTOSCOPY Primary Procedure Yes Primary Surgeon Marlon VALENZUELA MD Start 07/04/25 13:36:00 Stop 07/04/25 13:40:00 Anesthesia Type Local Surgical Service Urology Wound Class 2 - Clean-Contaminated Last Modified By: Dedra SALDANA, Kaya Toledo 07/04/25 13:48:12 General Case Data FTURO Pre-Care Text: Classifies surgical wound, implements aseptic technique, initiates traffic control Entry 1 Case Information OR URO 1 FT Case Level None Wound Class 2 - Clean-Contaminated Specialty Urology Preop Diagnosis GROSS HEMATURIA AND Postop Same As Preop Yes HISTORY OF STONES Postop Diagnosis GROSS HEMATURIA AND Outcomes Met? Yes HISTORY OF STONES Last Modified By: Kaya Colmenares RN 07/04/25 13:34:05 Post-Care Text: The patient is free from signs and symptoms of infection EU IntraOp - FTURO Pre-Care Text: Implements protective measures prior to operative or invasive procedure, confirms identity before the operative or invasive procedure, verifies operative procedure, surgical site, and laterality Entry 1 EU Perioperative Protocols Procedure(s) CYSTOSCOPY LOCAL(.) Patient Identity Birthday, ID Band Verified (select at Check, Patient least 2): Participation Consents / H and P H&P, Surgery/Procedure Operative Site N/A Verified Consent Marking Verified Surgical Site Yes Laterality Verified n/a Verified Procedure Verified Yes Correct Patient Yes Position Verified Availability Equipment, Medication Time Out MIGUEL ANGEL JASSO, Marlon Rangel, Verified (If Participants Kaya Colmenares RN Applicable) Franki Zambrano Kendall R Time Out Complete 07/04/25 13:35:00 Allergies Reviewed? Yes Allergies Reviewed Self/Patient With Body Position Frog Legged Prep Area PERINEAL AREA Prep Agents Betadine Solution Skin. Condition Unable to Visualize Description partially clothed and draped Additional None Specimens Collected Vitals - EU Blood Pressure 109/71 Pulse 75 bpm Respirations 18 br/min SPO2 99 % I&O - EU Outcomes Met? Yes Last Modified By: Kaya Colmenares RN 07/04/25 13:37:17 Post-Care Text: The patient is free from signs and symptoms of injury caused by extraneous objects Sign Out FTURO Entry 1 Before Patient Leaves OR Nurse verbally Yes Nurse verbally Yes confirms with the confirms with the team the name of team that the procedure(s) instrument, sponge, recorded and needle counts are correct (or N/A) Nurse verbally n/a Nurse verbally n/a confirms with the confirms with the team how the team whether there specimen is labeled are any equipment (including patient problems to be name), if applicable addressed Sign Out Complete 07/04/25 13:43:00 Last Modified By: Kaya Colmenares RN 07/04/25 13:48:12 Case Comments Finalized By: Kaya Colmenares RN Document Signatures Signed By: Kaya Colmenares RN 07/04/25 13:48NoLima Memorial HospitalMain OR Preoperative Recordon [id number] OR Preoperative RecordMain OR Preoperative Record Holding Area Document Type FTURO Summary Primary Physician: Marlon VALENZUELA MD Finalized Date/Time: 07/04/25 13:12:12 Pt. Name: MOJGAN PÉREZ /Sex: 1955 Female Med Rec #: [id number] Physician: Marlon VALENZUELA MD Financial #: [id number] Pt. Type: O Room/Bed: / Admit/Disch: 07/04/25 12:45:26 - Institution: Case Times Holding FTURO Pre-Care Text: Verifies consent for planned procedure, identifies individual values and wishes concerning care, includes family members in perioperative teaching Secures patient's records' belongings, and valuables, maintains patient's dignity and privacy, and maintains patient confidentiality Entry 1 In Holding 07/04/25 13:10:00 Outcomes Met? Yes Last Modified By: Xochitl Vallejo 07/04/25 13:11:12 Post-Care Text: The patient participates in decisions affecting his or her perioperative plan of care The patient'sright to privacy is maintained Surgery Checklist FTURO Entry 1 Patient Birthday, ID Band Procedure History and Physical, Identification: Check, Patient Verification: Surgical Consent, With Participation Patient NPO after Midnight: n/a Date/Time: 07/04/25 13:10:00 Personal Items: Glasses Personal Items CLOTHES AND SHOES Comment: Limitations: CANE Complaints of Pain: No Pain Comment: NONE Skin Integrity Unable to Visualize Vitals - EU Blood Pressure 109/71 Pulse 75 bpm Respirations 18 br/min SPO2 99 % Additional None Specimens Comment N/A Specimens Collected Residual Amount - 0 RN Reviewed Yes Post Void Last Modified By: Xochitl Vallejo 07/04/25 13:12:09 Finalized By: Xochitl Vallejo Document Signatures Signed By: Xochitl Vallejo 07/04/25 13:12NoLima Memorial HospitalOperative Reporton [id number] ReportOperative Report Patient: MOJGAN PÉREZ Age: 69 years Sex: Female : 1955 Associated Diagnoses: None Author: Marlon VALENZUELA MD Procedure Operative Information Details: Date/ Time: 07/04/2025 13:45:00. Pre-Op Dx: Gross Hematuria - R31.0. Post-Op Dx: Same. Anesthesia Type: Local. Procedure: Local Cystoscopy. Complications: None. Risks/Benefits/Informed Consent: Surgical risks, benefits, details of the procedure have been explained to the patient, Full informed consent has been obtained. Intraoperative Information Prepped: Patient is brought back to the endoscopy suite, Patient is placed in modified dorso/lithotomy position, Patient prepped in the usual fashion with Betadine solution, 2% Xylocaine Jelly is placed per Urethra, After waiting several minutes the Cystoscope is introduced. The Urethra is: Normal. The Bladder is: Abnormal, Trabeculated None (0), Diffuse patchy flat red areas on the floor and sidewalls. No papillary tumors. Question inflammatory versus CIS but her cytology was negative.. The ureteral orifices: Show efflux of clear urine. Devices Implanted: None. Removal: Cystoscope is removed, The patient tolerated it well. Postoperative Information Discharge: Patient is discharged home with antibiotic coverage, Follow up arranged. She will start Macrobid 100 mg twice daily for a week and then 1 daily for 2 months. We will then repeat her cystoscopy.[facility] Comment on above:Result Comment: Electronically Signed By: Marlon VALENZUELA MD\.br\Date and Time Signed: 07/04/25 13:46 EDTIMMUNOGLOBULINS A/E/G/M, QN ([facility]) on 18-65-3027WOULYJFINBFUVC A, SERUMmg/dL87 - 352 mg/dLNOPR HealthcareComment on above:Result confirmed on concentration.IMMUNOGLOBULIN E6 - 495[facility] Comment on above:Performed at: [facility] P[address] [id number] Aeronautical Design Engineer: Lang Knight PhD, Phone: [phone] Performed at: [facility] [id number] Aeronautical Design Engineer: Maxine Briones MD, Phone: [phone] IMMUNOGLOBULIN G606 mg/dL586 - 1602 mg/dLNOPR HealthcareIMMUNOGLOBULIN M, SERUM mg/dL26 - 217 mg/dLNOWright Memorial HospitalComment on above:Result confirmed on concentration.[facility]ares[facility] metabolic 2000 panelon 82-39-2279Edrsa gap [Moles/Vol]11 mmol/L10 - 20 mmol/[facility] HospitalCalcium [Mass/Vol]8.2 mg/dLLow8.6 - 10.3 mg/dLUnCentervilleChloride [Moles/Vol]104 mmol/L98 - 107 mmol/[facility] HospitalCO2 [Moles/Vol]26 mmol/L21 - 32 mmol/[facility] HospitalCreatinine [Mass/Vol]0.93 mg/dL0.50 - 1.05 mg/dLUnCentervilleGFR/1.73 sq M.predicted among non-blacks MDRD (S/P/Bld) [Vol rate/Area]68 mL/min/{1.73_m2}- PINJ.W. Ruby Memorial HospitalComment on above: Calculations of estimated GFR are performed using the 2020 CKD-EPI Study Refit equation without therace variable for the IDMS-Traceable creatinine methods. https://jasn.asnjournals.org/content//ASN.6470689524 Glucose [Mass/Vol]90 mg/dL74 - 99 mg/dLUnCenterville Interpretation and review of laboratory resultsAbnormalUniMount St. Mary HospitalPotassium [Moles/Vol]4.0 mmol/L3.5 - 5.3 mmol/[facility] HospitalSodium [Moles/Vol]137 mmol/L136 - 145 mmol/[facility] HospitalUrea nitrogen [Mass/Vol]17 mg/dL6 - 23 mg/dLUnCentervilleUnCentervilleAnion gap [Moles/Vol]11 mmol/LNormal 10-20UnMedina HospitalComment on above:Performed By: #### 24077-7 #### SAMUEL RUIZ ([id number]) [facility] ([facility]) [address] [place], [place] [address]Bikvxfs [Mass/Vol]8.2 mg/dLLow8.6-10.3Providence HospitalComment on above:Performed By: #### 27146-9 #### SAMUEL RUIZ ([id number]) [facility] ([facility]) [address] [place], [place] [address]Irdeavvk [Moles/Vol]104 mmol/WSzngac64-536DcovgilfkfMedina HospitalComment on above:Performed By: #### 63907-3 #### SAMUEL RUIZ (03907) [facility] ([facility]) [address] [place], [place] [address]VQ8 [Moles/Vol]26 mmol/DOvouip12-01QafdwmkwxqProvidence HospitalComment on above:Performed By: #### 55237-6 #### SAMUEL RUIZ ([id number]) [facility] ([facility]) [address] [place], [place] [address]Xwdvcdsytm [Mass/Vol]0.93 mg/dLNormal0.50-1.05UnMedina HospitalComment on above:Performed By: #### 76078-0 #### SAMUEL RUIZ ([id number]) [facility] ([facility]) [address] [place], [place] [address]Rayjnhtdlu filtration rate68 mL/min/1.73m*2Normal>60UnMedina HospitalComment on above:Result Comment: Calculations of estimated GFR are performed using the 2020 CKD-EPI Study Refit equation without the race variable for the IDMS-Traceable creatinine methods. https://jasn.asnjournals.org/content/early//ASN.8239323116Fdqkroyfs By: #### 65250-7 #### SAMUEL RUIZ ([id number]) [facility] ([facility]) [address] [place], [place] [address]Rlduebs [Mass/Vol]90 mg/gPKekfxy67-05AhgpnjhwrxProvidence HospitalComment on above:Performed By: #### 23758-6 #### SAMUEL RUIZ ([id number]) [facility] ([facility]) [address] [place], [place] [address]Eynjisaly [Moles/Vol]4.0 mmol/LNormal3.5-5.3UnMedina HospitalComment on above:Performed By: #### 84713-5 #### SAMUEL RUIZ ([id number]) [facility] ([facility]) [address] [place], [place] [address]Ikbfty [Moles/Vol]137 mmol/NUturcd269-697QxanavsfeqMedina HospitalComment on above:Performed By: #### 78093-9 #### SAMUEL RUIZ ([id number]) [facility] ([facility]) [address] [place], [place] [address]Zlif nitrogen [Mass/Vol]17 mg/dLNormal6-23Providence HospitalComment on above:Performed By: #### 69408-8 #### SAMUEL RUIZ ([id number]) [facility] ([facility]) [address] [place], [place] [address]UIT panel Auto (Bld)on 12-86-9184Ytbbwkjtbud distribution width (RBC) [Ratio]13.9 %11.5 - 14.5 %[facility] Hematocrit (Bld) [Volume fraction]32.2 %Low36.0 - 46.0 %[facility]bleHemoglobin (Bld) [Mass/Vol]10.5 g/dLLow12.0 - 16.0 g/dLUnCentervilleInterpretation and review of laboratory resultsAbnormal [facility] Medical CenterH (RBC) [Entitic mass]32.7 pg26.0 - 34.0 pg [facility] PrebleMCHC (RBC) [Mass/Vol]32.6 g/dL32.0 - 36.0 g/dL [facility] CenterV (RBC) [Entitic vol]100 fL80 - 100 fL [facility] PrebleNucleated RBC/100 WBC (Bld) [Ratio]0.0 % [facility] PreblePlatelets (Bld) [#/Vol]48 10*3/[facility] HospitalComment on above:Platelet count verified by smear review RBC (Bld) [#/Vol]3.21 10*6/[facility] HospitalWBC (Bld) [#/Vol]1.6 10*3/[facility] HospitalUnCentervilleErythrocyte distribution width (RBC) [Ratio]13.9 %Kclsuz92.5-14.5 Providence HospitalComment on above:Performed By: #### 47667-3 #### SAMUEL RUIZ ([id number]) [facility] ([facility]) [address] [place], [place] [address]Psfvtaaool (Bld) [Volume fraction]32.2 %Low36.0-46.0UnMedina HospitalComment on above:Performed By: #### 75960-5 #### SAMUEL RUIZ ([id number]) [facility] ([facility]) [address] [place], [place] [address]Ghrzqewobj (Bld) [Mass/Vol]10.5 g/dLLow12.0-16.0UnMedina HospitalComment on above:Performed By: #### 94950-9 #### SAMUEL RUIZ (07593) [facility] ([facility]) [address] [place], [place] [address]XUK (RBC) [Entitic mass]32.7 etLmbphh74.0-34.0UnMedina HospitalComment on above:Performed By: #### 44950-3 #### SAMUEL RUIZ (18003) [facility] ([facility]) [address] [place], [place] [address]BSKJ (RBC) [Mass/Vol]32.6 g/eWBqmdet84.0-36.0Providence HospitalComment on above:Performed By: #### 02205-7 #### SAMUEL RUIZ (52611) [facility] ([facility]) [address] [place], [place] [address]KFE (RBC) [Entitic vol]100 dRFrfqtq02-270SbfxekihqoProvidence HospitalComment on above:Performed By: #### 43064-1 #### SAMUEL RUIZ (45666) [facility] ([facility]) [address] [place], [place] [address]Zgqfpnblo RBC/100 WBC (Bld) [Ratio]0.0 /100 WBCsNormal0.0-0.0 Providence HospitalComment on above:Performed By: #### 87715-0 #### SAMUEL RUIZ ([id number]) [facility] ([facility]) [address] [place], [place] [address]Ldqqzgrcy (Bld) [#/Vol]48 x10*3/eGGih324-116SxagaaqausMedina HospitalComment on above:Result Comment: Platelet count verified by smear reviewPerformed By: #### 33119-2 #### SAMUEL RUIZ ([id number]) [facility] ([facility]) [address] [place], [place] [address]HIB (Bld) [#/Vol]3.21 x10*6/uLLow4.00-5.20Providence HospitalComment on above:Performed By: #### 52004-4 #### SAMUEL RUIZ ([id number]) [facility] ([facility]) [address] [place], [place] [address]YHE (Bld) [#/Vol]1.6 x10*3/uLLow4.4-11.3Providence HospitalComment on above:Performed By: #### 93363-4 #### SAMUEL RUIZ (83489) [facility] ([facility]) [address] [place], [place] [address]TX GUIDED RF ABLATION LIVERon 64-05-5605ZJ GUIDED RF ABLATION LIVERInterpreted By: Дмитрий Flores, STUDY: CT GUIDED RF ABLATION LIVER; US GUIDED RF ABLATION LIVER; 06/22/2025 9:06 am; 06/22/2025 8:53 am INDICATION: Signs/Symptoms:HCC microwave ablation; Signs/Symptoms:microwave ablation for HCC. COMPARISON: MR abdomen 04/17/2025 ACCESSION NUMBER(S): [id number]; [id number] ORDERING CLINICIAN: RAMAN NICHOLAS TECHNIQUE: PODIATRIC PHYSICIAN: Дмитрий Flores MD CONSENT: The patient was [...] on the CT scan table. An initial correctional facility nurse CT was performed, demonstrating the 1.9 cm hypoattenuating lesion in segment 6 of the liver consistent with the known hepatocellular carcinoma. The skin was marked, prepped, and draped in a sterile fashion. Next, the liver was evaluated sonographically, demonstrating a 1.9 x 1.8 cm hypoechoic lesion in segment 6 corresponding to the correctional facility nurse CT scan and prior imaging. Under direct [...] Дмитрий Flores 06/22/2025 3:56 PM Dictation workstation: [id number] Memorial HospitalCT Guidance for ablation of tissue of Liveron 56-32-9234Fxxjvmsoq Study observation (narrative)[facility] Work Phone: Coagulation tissue factor inducedon 98-77-4807GD Coag (PPP) [Time]14.3 sHigh9.8-12.4UnMedina Hospital Comment on above:Performed By: #### 5902-2 #### SAMUEL RUIZ ([id number]) [facility] ([facility]) [address] [place], [place] [address]Omhaief Test strip manual (Bld) [Mass/Vol]on 08-87-5623Pqhayip [Mass/Vol]93 mg/dL74 - 99 mg/dLUnCentervilleInterpretation and review of laboratory resultsNoOhioHealth Pickerington Methodist HospitalGlucose [Mass/Vol]93 mg/cDTetblr48-23FtkjkixyocMedina HospitalComment on above:Performed By: #### 5902-2 #### SAMUEL RUIZ ([id number]) [facility] ([facility]) [address] [place], [place] [address]Zqtouec [Mass/Vol]85 mg/dL74 - 99 mg/dLUnCentervilleInterpretation and review of laboratory resultsNoAvita Health SystemUnCentervilleGlucose [Mass/Vol]85 mg/vZQbhhze12-30QcwbukzwauMedina HospitalComment on above: Performed By: #### 2341-6 #### SAMUEL RUIZ ([id number]) [facility] ([facility]) [address] [place], [place] [address]Jd Panel Informationon 17-87-7519LR and ultrasound-guided microwave ablation of a segment 6 hepatocellular carcinoma as described above Signed by: Дмитрий Flores 06/22/2025 3:56 PM Dictation workstation: [id number] MMODALInterpreted By: Дмитрий Flores, STUDY: CT GUIDED RF ABLATION LIVER; US GUIDED RF ABLATION LIVER; 06/22/2025 9:06 am; 06/22/2025 8:53 am INDICATION: Signs/Symptoms:HCC microwave ablation; Signs/Symptoms:microwave ablation for HCC. COMPARISON: MR abdomen 04/17/2025 ACCESSION NUMBER(S): [id number]; [id number] ORDERING CLINICIAN: RAMAN NICHOLAS TECHNIQUE: PODIATRIC PHYSICIAN: Дмитрий Flores MD CONSENT: The patient was [...] on the CT scan table. An initial correctional facility nurse CT was performed, demonstrating the 1.9 cm hypoattenuating lesion in segment 6 of the liver consistent with the known hepatocellular carcinoma. The skin was marked, prepped, and draped in a sterile fashion. Next, the liver was evaluated sonographically, demonstrating a 1.9 x 1.8 cm hypoechoic lesion in segment 6 corresponding to the correctional facility nurse CT scan and prior imaging. Under direct [...] tumor consistent with a technically successful ablation. [facility] MMODALДмитрий Flores MD - 06/22/2025 Interpreted By: Дмитрий Flores, STUDY: CT GUIDED RF ABLATION LIVER; US GUIDED RF ABLATION LIVER; 06/22/2025 9:06 am; 06/22/2025 8:53 am INDICATION: Signs/Symptoms:HCC microwave ablation; Signs/Symptoms:microwave ablation for HCC. COMPARISON: MR abdomen 04/17/2025 ACCESSION NUMBER(S): [id number]; [id number] ORDERING CLINICIAN: RAMAN NICHOLAS TECHNIQUE: PODIATRIC PHYSICIAN: Дмитрий Flores MD CONSENT: The patient was [...] on the CT scan table. An initial correctional facility nurse CT was performed, demonstrating the 1.9 cm hypoattenuating lesion in segment 6 of the liver consistent with the known hepatocellular carcinoma. The skin was marked, prepped, and draped in a sterile fashion. Next, the liver was evaluated sonographically, demonstrating a 1.9 x 1.8 cm hypoechoic lesion in segment 6 corresponding to the correctional facility nurse CT scan and prior imaging. Under direct [...] Дмитрий Flores 06/22/2025 3:56 PM Dictation workstation: [id number] [facility] Work Phone: [place] Work Phone: PT Coag (PPP) [Time]on 57-28-6274DDT Coag (PPP) [Relative time]1.3 {INR}High0.9 - 1.1Un[place] Interpretation and review of laboratory resultsAbnormalUniMount St. Mary HospitalUnCentervilleINR Coag (PPP) [Relative time]1.3High 0.9-1.1Providence HospitalComment on above:Performed By: #### 5902-2 #### SAMUEL RUIZ ([id number]) [facility] ([facility]) [address] [place], [place] [address]Sohyblm-TDQxm 28-70-0168GO Coag (PPP) [Time]14.3 [facility] HospitalUS GUIDED RF ABLATION LIVERon 30-30-4887DA GUIDED RF ABLATION LIVERInterpreted By: Дмитрий Flores, STUDY: CT GUIDED RF ABLATION LIVER; US GUIDED RF ABLATION LIVER; 06/22/2025 9:06 am; 06/22/2025 8:53 am INDICATION: Signs/Symptoms:HCC microwave ablation; Signs/Symptoms:microwave ablation for HCC. COMPARISON: MR abdomen 04/17/2025 ACCESSION NUMBER(S): [id number]; [id number] ORDERING CLINICIAN: RAMAN NICHOLAS TECHNIQUE: PODIATRIC PHYSICIAN: Дмитрий Flores MD CONSENT: The patient was [...] on the CT scan table. An initial correctional facility nurse CT was performed, demonstrating the 1.9 cm hypoattenuating lesion in segment 6 of the liver consistent with the known hepatocellular carcinoma. The skin was marked, prepped, and draped in a sterile fashion. Next, the liver was evaluated sonographically, demonstrating a 1.9 x 1.8 cm hypoechoic lesion in segment 6 corresponding to the correctional facility nurse CT scan and prior imaging. Under direct [...] Дмитрий Flores 06/22/2025 3:56 PM Dictation workstation: [id number] Osteopathic HospitalUS Guidance for ablation of tissue of Liveron 00-83-0907Uijpznmzy Study observation (narrative)[facility] Work Phone: basophils/100 leukocytes in Blood by Manual count Ordered By: Fabiola Marinelli on 25-91-0598Esntztxjz/100 WBC (Bld)1 %Normal0-2FPremier HealthComment on above:Performed By: #### IMM GAME ####[facility] ,#### DIFF CBC ####[facility] [address] [place] [address] USAComprehensive Metabolic Panelon 57-93-0934Njluurs [Mass/Vol]3.5 g/dLNormal3.5-5.7The [facility]health Physician GroupComment on above: Performed By: #### CMP ####[place] [address] USAAlbumin/Globulin [Mass ratio]1.8 {ratio}NormalThe [facility]health Physician GroupComment on above:Performed By: #### CMP ####[place] [address] USAALP [Catalytic activity/Vol]84 U/OWtongu72-681Sek [facility] Physician GroupComment on above: Performed By: #### CMP ####[place] [address] USAALT [Catalytic activity/Vol]13 U/LNormal7-52The [facility] Physician GroupComment on above:Performed By: #### CMP ####[place] [address] USAAnion gap [Moles/Vol] 7.6 mmol/LNormal6.0-15.0The [facility] Physician GroupComment on above:Performed By: #### CMP ####[place] [address] USAAST [Catalytic activity/Vol]27 U/FNjtddh08-41Kjc [facility] Physician GroupComment on above:Performed By: #### CMP ####[place] [address] USABilirubin [Mass/Vol]0.8 mg/dLNormal 0.3-1.0The [facility] Physician GroupComment on above:Performed By: #### CMP ####[place] [address] USACalcium [Mass/Vol]8.6 mg/dLNormal8.6-10.3The [facility] Physician GroupComment on above: Performed By: #### CMP ####[place] [address] USAChloride [Moles/Vol]106 mmol/OVjbzjm05-614Ckf [facility] Physician GroupComment on above:Performed By: #### CMP ####[place] [address] USACO2 [Moles/Vol]28.3 mmol/INatoma87.0-31.0The [facility] Physician GroupComment on above:Performed By: #### CMP ####[address] [address] USACreatinine [Mass/Vol]0.91 mg/dLNormal0.60-1.20ThSt. Luke's Fruit[facility] Comment on above:Performed By: #### CMP ####[address] [address] USACreatinine Clr Calc Lqecgzzc21.46NormOrlando Health - Health Central Hospital Physician GroupComment on above:Result Comment: PERFORMED BY:[address] [place]Rober[place]ErnaROM[place], [place] [phone] MEDICAL DIRECTORARIEL BRUCE M.D.Performed By: #### CMP ####[address] [address] USAGFR/1.73 sq M.predicted MDRD (S/P/Bld) [Vol rate/Area]mL/min/{1.73_m2}NormalThe [facility] Physician GroupComment on above:Performed By: #### CMP ####[address] [address] USAGlobulin (S) [Mass/Vol]2.0 g/dLNoAtrium Health Cabarrus Physician [facility] Mississippi Medical CenterComment on above:Performed By: #### CMP ####[address] [address] USAGlucose [Mass/Vol]122 mg/aUGixi11-051Ymo [facility] Physician GroupComment on above: Result Comment: Random Glucose Reference Range is dependent on time and content of last meal. Glucose of more than 200 mg/dL in a nonstressed, ambulatory subject supports the diagnosis of Diabetes Mellitus. ADA recommended reference rangePerformed By: #### CMP ####[address] [address] USAPotassium [Moles/Vol]3.9 mmol/LNormal3.5-5.1The [facility] Physician GroupComment on above:Performed By: #### CMP ####[address] [address] USAProtein [Mass/Vol]5.5 g/dLLow6.4-8.9The [facility] Physician GroupComment on above:Performed By: #### CMP ####[place] [address] Sodium [Moles/Vol]138 mmol/BZgsslc208-259Lav [facility] Physician [facility] Medical CenterComment on above:Performed By: #### CMP ####[facility] [place] [address] USAUrea nitrogen [Mass/Vol]14 mg/dLNormal7-25The [facility] Physician GroupComment on above:Performed By: #### CMP ####[place] [address] [address] StreetComprehensive metabolic panelon 55-98-2508Uzrkbwo [Mass/Vol]3.5 g/dL3.5 - 5.7 g/dLNOPR HealthcareAlbumin/Globulin [Mass ratio]1.8 {ratio}NOMS HealthcareALP [Catalytic activity/Vol]84 U/L34 - 104 U/LNOMS HealthcareALT [Catalytic activity/Vol]13 U/L 7 - 52 U/LNOMS HealthcareAnion gap [Moles/Vol]7.6 mmol/L6.0 - 15.0NOPR HealthcareAST [Catalytic activity/Vol]27 U/L13 - 39 U/LNOMS HealthcareBilirubin [Mass/Vol]0.8 mg/dL0.3 - 1.0 mg/dLNOPR HealthcareCalcium [Mass/Vol]8.6 mg/dL8.6 - 10.3 mg/dLNOPR HealthcareChloride [Moles/Vol]106 mmol/L98 - 107 mmol/LNOMS HealthcareCO2 [Moles/Vol]28.3 mmol/L21.0 - 31.0 mmol/LNOMS HealthcareCreatinine (U) [Mass/Vol]0.91 mg/dL0.60 - 1.20 mg/dLNOPR HealthcareCREATININE CLR CALC IFPFKADD78.46NOMS HealthcareESTIMATED GFRNOMS HealthcareGlobulin (S) [Mass/Vol]2 g/dLNOPR HealthcareGlucose [Mass/Vol]122 mg/cGKivy31 - 100 mg/dLNOPR Healthcare Comment on above:Random Glucose Reference Range is dependent on time and content of last meal. Glucose of more than 200 mg/dL in a nonstressed, ambulatory subject supports the diagnosis of Diabetes Mellitus. ADA recommended reference range Interpretation and review of laboratory resultsAbnormalNOMS HealthcarePotassium [Moles/Vol]3.9 mmol/L3.5 - 5.1 mmol/LNOMS HealthcareProtein [Mass/Vol]5.5 g/dL Low6.4 - 8.9 g/dLNOMS HealthcareSodium [Moles/Vol]138 mmol/L136 - 145 mmol/LNOMS HealthcareUrea nitrogen [Mass/Vol]14 mg/dL7 - 25 mg/dLNOMS HealthcareNOMS HealthcareDiff and CBCon 07-84-8245Uhyz form neutrophils/100 WBC (Bld)1 %Normal 0-5The [facility] Physician GroupComment on above:Performed By: #### IMM GAME ####[facility] ,#### DIFF CBC ####[place] [address] USAEosinophils/100 WBC (Bld)23 %High1-3The [facility] Physician GroupComment on above:Performed By: #### IMM GAME ####[facility] ,#### DIFF CBC ####[place] [address] USAErythrocyte distribution width (RBC) [Ratio] 14.9 %Aqbygd87.9-15.3The [facility] Physician GroupComment on above:Performed By: #### IMM GAME ####[facility] ,#### DIFF CBC ####[place] [address] USAGiant Platelet Tally2 /100{WBC}NormalThe [facility]health Physician GroupComment on above:Performed By: #### IMM GAME ####[facility] ,#### DIFF CBC ####[place] [address] USAHematocrit (Bld) [Volume fraction]32.1 %Low34.0-46.4The [facility] Physician GroupComment on above:Performed By: #### IMM GAME ####[facility] ,#### DIFF CBC ####[address] [address] USAHemoglobin (Bld) [Mass/Vol]10.9 g/dL Low11.8-15.4The [facility] Physician GroupComment on above:Performed By: #### IMM GAME ####[facility] ,#### DIFF CBC ####[facility] [address] [place] [address] USALarge PlateletsSlightNormalThe Adventhealth Physician GroupComment on above:Result Comment: PERFORMED BY:[address] [place]RobertoErnaROM[place], [place] [phone] MEDICAL BARBIE BRUCE M.D.Performed By: #### IMM GAME ####[facility] ,#### DIFF CBC ####[address] [address] USALymphocytes/100 WBC (Bld)30 %Pytlyf25-72Mtu [facility] Physician GroupComment on above:Performed By: #### IMM GAME ####[facility] ,#### DIFF CBC ####[address] [address] USAMCH (RBC) [Entitic mass]33.3 zkOvzvvp78.7-34.3 The [facility] Physician GroupComment on above:Performed By: #### IMM GAME ####[facility] ,#### DIFF CBC ####[address] [address] USAMCV (RBC) [Entitic vol]98.1 gUMnpdmv72-319Kzq [facility] Physician GroupComment on above:Performed By: #### IMM GAME ####[facility] ,#### DIFF CBC ####[address] [address] USAMean Corpuscular HGB Conc34.0 g/dLNormal 32.0-35.0The [facility] Physician GroupComment on above:Performed By: #### IMM GAME ####[facility] ,#### DIFF CBC ####[facility] [address] [place] [address] USAMicrocytosisSlightNoAtrium Health Cabarrus Physician GroupComment on above:Performed By: #### IMM GAME ####[facility] ,#### DIFF CBC ####[address] [address] USAMonocytes/100 WBC (Bld)9 %Normal2-11[facility] Physician GroupComment on above:Performed By: #### IMM GAME ####[facility] ,#### DIFF CBC ####[place] [address] USAPlatelet EstimateDecreasedNormalShorePoint Health Port Charlotte Physician GroupComment on above:Performed By: #### IMM GAME ####[facility] ,#### DIFF CBC ####[place] [address] USAPlatelet mean volume (Bld) [Entitic vol]8.1 fLNormal 6.3-10.7The [facility] Physician GroupComment on above:Result Comment: PERFORMED BY:[address] [place]RobertoErnaROMA, [place] [phone] MEDICAL BARBIE BRUCE M.D.Performed By: #### IMM GAME ####[facility] ,#### DIFF CBC ####[address] [address] USAPlatelets (Bld) [#/Vol]43 10*3/sLJpo639-886Wwc [facility] Physician GroupComment on above:Performed By: #### IMM GAME ####[facility] ,#### DIFF CBC ####[address] [address] USAPolychromasiaSlightNormalThe [facility] Physician GroupComment on above:Performed By: #### IMM GAME ####[facility] ,#### DIFF CBC ####[address] [address] USARBC (Bld) [#/Vol]3.27 10*6/uLLow3.60-5.00The [facility] Physician GroupComment on above:Performed By: #### IMM GAME ####[facility] ,#### DIFF CBC ####[place] [address] USASegmented neutrophils/100 WBC (Bld)36 %Low 50-70The [facility] Physician GroupComment on above:Performed By: #### IMM GAME ####[facility] ,#### DIFF CBC ####[place] [address] USAWBC (Bld) [#/Vol]1.6 10*3/uLLow3.8-11.6The [facility] Physician GroupComment on above:Performed By: #### IMM GAME ####[facility] ,#### DIFF CBC ####[place] [address] USAWhite Blood Count1.6 [CFU]/mLLow3.8-11.6The [facility] Physician GroupComment on above:Performed By: #### IMM GAME ####[facility] ,#### DIFF CBC ####[place] [address] USAGiant platelets/100 leukocytes [Ratio] in Blood by Manual countOrdered By: Fabiola Marinelli on 90-18-1959Hdrnu platelets/100 WBC Manual cnt (Bld) [Ratio]2 /100{WBC}Salem City HospitalIgE [Units/volume] in Serum or PlasmaOrdered By: Fabiola Marinelli on 31-04-5720YwE Qn<2 [IU]/mLLow6-495Sal[facility] City HospitalImmunoglobulins A/E/G/M, Qnon 26-33-6960Kjtzzcnasiscaf A, Serum<9Hikewg38-865Dof [facility] Comment on above:Result Comment: Result confirmed on concentration.Performed By: #### IMM GAME ####[facility] ,#### DIFF CBC ####[address] [address] USAImmunoglobulin E<9Qzkhct6-096 The [facility]health Physician GroupComment on above:Result Comment: Performed at: - [facility] [id number] Aeronautical Design Engineer: Lang Knight PhD, Phone: [phone] Performed at: - [facility] [id number] Aeronautical Design Engineer: Maxine Briones MD, Phone: [phone] BY:[address] [place], [place] [phone] MEDICAL DIRECTORGIULIANO BRUCE M.D.Performed By: #### IMM GAME ####[facility] ,#### DIFF CBC ####[address] [address] USAImmunoglobulin G606 mg/dL Fykuvs482-8011Cut [facility] Physician [facility] Medical CenterComment on above:Performed By: #### IMM GAME ####[facility] ,#### DIFF CBC ####[address] [address] USAImmunoglobulin M, Serum<0Qxjxuf44-554 The [facility] Physician [facility] Medical CenterComment on above:Result Comment: Result confirmed on concentration.Performed By: #### IMM GAME ####[facility] ,#### DIFF CBC ####[address] [address] [place] Microcytes LM Ql (Bld)Ordered By: Fabiola Marinelli on 44-43-0358Ebrhtdhibi Ql (Bld) [facility] Medical CenterPlatelet Pheresis LRon 73-84-6025Tctyaneg Pheresis LRTRANSFUSED 06/20/25 1431NormalThe [facility] Physician GroupType and Screenon 30-44-8022JNM and Rh group Nom (Bld)Blood group A Rh(D) positiveNormal The [facility]health Physician GroupComment on above:Order Comment: Transfuse now? Y Number of units to transfuse now? 1Result Comment: PERFORMED BY:[facility] [place], [place] [phone] MEDICAL DIRECTORWEI HARE M.D.AFP tumor markeron 24-59-4398YJU TUMOR MARKER, SERUM. ng/mLNOMS HealthcareComment on above:Test not performed. Insufficient specimen to perform or complete analysis. CONTACTED YOUR FACILITY ON 06-16-2025 [facility] Electrochemiluminescence Immunoassay (ECLIA) Values obtained with different assay methods or kits cannot be used interchangeably. Results cannot be interpreted as absolute evidence of the presence or absence of malignant disease. This test is not interpretable in females. [facility] Cytology ([facility])on 94-77-3957Yoxmi CytologyDiagnosis Info Invalid Interpretation CodeLouis Stokes Cleveland Va Medical CenterComment on above:Result Comment: A:Urine,Urine:Voided Interpretation - Adequate cellularity for evaluation. CPT 65328 MicroScopic Description - Adequacy - Gross Description Site ID:A color Yellow fixative Alcohol Specimen designated Urine received in alcohol preservative and labeled with the patient???s name, consists of 40ml clear yellow fluid. Electronically signed by : on: 06/15/2025 15:44:33Performed By: #### [id number] #### [facility] [address] [place], [place] [address]RQP Tumor Marker, Serumon 86-85-3182OZD Tumor Marker, Serum Normal.The [facility] Physician GroupComment on above:Result Comment: Test not performed. Insufficient specimen to perform or complete analysis. CONTACTED YOUR FACILITY ON 06-16-2025 [facility] Electrochemiluminescence Immunoassay (ECLIA) Values obtained with different assay methods or kits cannot be used interchangeably. Results cannot be interpreted as absolute evidence of the presence or absence of malignant disease. This test is not interpretable in females.PERFORMED BY:[facility] [place] [address] [place], [place] [phone] MEDICAL DIRECTORARIEL BRUCE M.D.Performed By: #### CMP, SCAN CBC ####[facility] [place] [address] [place]#### AFPTM ####[facility] ,Alanine aminotransferase [Enzymatic activity/volume] in Serum or PlasmaOrdered By: Fabiola Marinelli on 56-44-2568EWA [Catalytic activity/Vol]12 U/LNormal7-52[facility] City HospitalComment on above:Performed By: #### CMP, SCAN CBC ####[place] [address] [place] [address] [place]#### AFPTM ####[facility] ,Albumin [Mass/volume] in Serum or Plasma by Bromocresol green (BCG) dye binding methoOrdered By: Fabiola Marinelli on 06-14-2025 Albumin BCG dye [Mass/Vol]3.5 g/dL3.5-5.7FPremier Health Alkaline phosphatase [Enzymatic activity/volume] in Serum or PlasmaOrdered By: Fabiola Marinelli on 20-37-5722LAN [Catalytic activity/Vol]92 U/TCijlcx73-254MocnmzaudSalem City HospitalComment on above:Performed By: #### CMP, SCAN CBC ####[place] [address] [place]#### AFPTM ####[facility] ,Anisocytosis [Presence] in Blood by Light microscopyOrdered By: Fabiola Marinelli on 81-56-2388Tiiiiznusyye Ql (Bld)SlightNormal [facility] City HospitalComment on above:Performed By: #### CMP, SCAN CBC ####[place] [address] [place]#### AFPTM ####[facility] ,Aspartate aminotransferase [Enzymatic activity/volume] in Serum or PlasmaOrdered By: Fabiola Marinelli on 37-14-4361QFA [Catalytic activity/Vol]27 U/YRpgcwm88-98KpniugzouSalem City Hospital Comment on above:Performed By: #### CMP, SCAN CBC ####[place] [address] [place] [address] [place]#### AFPTM ####[facility] , Basophils [#/volume] in Blood by Automated countOrdered By: Fabiola Marinelli on 23-55-9323Bnxwdknsw (Bld) [#/Vol]0.0 10*3/uLNormal0.0-0.2FPremier HealthComment on above:Performed By: #### CMP, SCAN CBC ####[place] [address] [place]#### AFPTM ####[facility] ,Basophils/100 leukocytes in Blood by Automated count Ordered By: Fabiola Marinelli on 06-10-0700Fzjzpwzmo/100 WBC (Bld)0.4 %Normal.[facility] City HospitalComment on above:Performed By: #### CMP, SCAN CBC ####[place] [address] [place]#### AFPTM ####[facility] ,Bilirubin.total [Mass/volume] in Serum or Plasma Ordered By: Fabiola Marinelli on 03-75-1826Juxyxggfs [Mass/Vol]0.9 mg/dLNormal0.3-1.0 [facility] City HospitalComment on above:Performed By: #### CMP, SCAN CBC ####[place] [address] [place]#### AFPTM ####[facility] ,Calcium [Mass/volume] in Serum or Plasma Ordered By: Fabiola Marinelli on 17-09-1220Vzzgntp [Mass/Vol]8.9 mg/dLNormal8.6-10.3 [facility] HospitalComment on above:Performed By: #### CMP, SCAN CBC ####[place] [address] [place]#### AFPTM ####[facility] ,Carbon dioxide, total [Moles/volume] in Serum or PlasmaOrdered By: Fabiola Berumense on 53-24-3293AU9 [Moles/Vol]29.5 mmol/L Pusimn10.0-31.0Sal[facility] City HospitalComment on above:Performed By: #### CMP, SCAN CBC ####[place] [address] [place]#### AFPTM ####[facility] ,Chloride [Moles/volume] in Serum or PlasmaOrdered By: Fabiola Yves on 15-99-1764Funrovib [Moles/Vol]104 mmol/L Vbnpgw99-778VervazcxxSalem City HospitalComment on above:Performed By: #### CMP, SCAN CBC ####[place] [address] [place]#### AFPTM ####[facility] ,Comprehensive Metabolic Panelon 47-71-1208Jhcpfaw [Mass/Vol]3.5 g/dLNormal3.5-5.7The [facility] Comment on above:Performed By: #### CMP, SCAN CBC ####[place] [address] [place]#### AFPTM ####[facility] , Creatinine Clr Calc Vrcqbmwy54.54NormOrlando Health - Health Central Hospital Physician GroupComment on above:Result Comment: PERFORMED BY:[address] [place], [place] [phone] MEDICAL BARBIE BRUCE M.D.Performed By: #### CMP, SCAN CBC ####[place] [address] [place]#### AFPTM ####[facility] ,GFR/1.73 sq M.predicted MDRD (S/P/Bld) [Vol rate/Area]mL/min/{1.73_m2}NormalThe [facility] Physician GroupComment on above:Performed By: #### CMP, SCAN CBC ####[facility] [address]#### AFPTM ####[facility] ,Comprehensive metabolic panelon 64-41-0505Cmwndte [Mass/Vol]3.5 g/dL3.5 - 5.7 g/dLNOMS HealthcareAlbumin/Globulin [Mass ratio]1.8 {ratio}NOMS HealthcareALP [Catalytic activity/Vol]92 U/L34 - 104 U/LNOMS HealthcareALT [Catalytic activity/Vol]12 U/L7 - 52 U/LNOMS HealthcareAnion gap [Moles/Vol]7 mmol/L6.0 - 15.0NOMS HealthcareAST [Catalytic activity/Vol]27 U/L13 - 39 U/LNOMS HealthcareBilirubin [Mass/Vol]0.9 mg/dL0.3 - 1.0 mg/dLNOMS HealthcareCalcium [Mass/Vol]8.9 mg/dL8.6 - 10.3 mg/dLNOMS HealthcareChloride [Moles/Vol]104 mmol/L98 - 107 mmol/LNOMS HealthcareCO2 [Moles/Vol]29.5 mmol/L 21.0 - 31.0 mmol/LNOMS HealthcareCreatinine (U) [Mass/Vol]1 mg/dL0.60 - 1.20 mg/dLNOMS HealthcareCREATININE CLR CALC QVOAYXCX39.54NOMS HealthcareESTIMATED GFRNOMS HealthcareGlobulin (S) [Mass/Vol]2 g/dLNOMS HealthcareGlucose [Mass/Vol] 96 mg/dL70 - 100 mg/dLNOPR HealthcareComment on above:Random Glucose Reference Range is dependent on time and content of last meal. Glucose of more than 200 mg/dL in a nonstressed, ambulatory subject supports the diagnosis of Diabetes Mellitus. ADA recommended reference range Interpretation and review of laboratory resultsAbnormalNOMS HealthcarePotassium [Moles/Vol]4.5 mmol/L3.5 - 5.1 mmol/LNOMS HealthcareProtein [Mass/Vol]5.5 g/dL Low6.4 - 8.9 g/dLNOMS HealthcareSodium [Moles/Vol]136 mmol/L136 - 145 mmol/LNOMS HealthcareUrea nitrogen [Mass/Vol]15 mg/dL7 - 25 mg/dLNOMS HealthcareNOMS HealthcareCreatinine [Mass/volume] in Serum or PlasmaOrdered By: Fabiola Berumense on 55-13-5539Sdhnjtqyjc [Mass/Vol]1.00 mg/dLNormal0.60-1.20[facility] City HospitalComment on above:Performed By: #### CMP, SCAN CBC ####[place] [address] [place]#### AFPTM ####[facility] ,Eosinophils [#/volume] in Blood by Automated count Ordered By: Fabiola Marinelli on 68-52-5194Imrnmqsklru (Bld) [#/Vol]0.5 10*3/uLHigh 0.0-0.45[facility] City HospitalComment on above:Performed By: #### CMP, SCAN CBC ####[place] [address] [place]#### AFPTM ####[facility] ,Eosinophils/100 leukocytes in Blood by Automated countOrdered By: Fabiola Marinelli on 47-28-1477Bnyorgueazb/100 WBC (Bld)29.1 %Normal.[facility] HospitalComment on above:Performed By: #### CMP, SCAN CBC ####[place] [address] [place]#### AFPTM ####[facility] ,Erythrocyte distribution width [Ratio] by Automated countOrdered By: Fabiola Marinelli on 06-14-2025 Erythrocyte distribution width (RBC) [Ratio]14.7 %Vpomuu71.9-15.3FPremier HealthComment on above:Performed By: #### CMP, SCAN CBC ####[place] [address] [place]#### AFPTM ####[facility] ,Erythrocyte morphology finding [Identifier] in BloodOrdered By: Fabiola Marinelli on 46-10-9951AIX morphology finding Nom (Bld)Normal NormalNormalSalem City HospitalComment on above:Performed By: #### CMP, SCAN CBC ####[facility] [address] [place] [address] [place]#### AFPTM ####[facility] ,Erythrocytes [#/volume] in Blood by Automated countOrdered By: Fabiola Marinelli on 74-07-8073JAI (Bld) [#/Vol]3.27 10*6/uLLow3.60-5.00[facility] City HospitalComment on above:Performed By: #### CMP, SCAN CBC ####[facility] [place] [address] [place]#### AFPTM ####[facility] ,Glucose [Mass/volume] in Serum or PlasmaOrdered By: Fabiola Marinelli on 33-33-2644Ngynrtf [Mass/Vol]96 mg/yJUxfshj46-134NodabexnhSalem City HospitalComment on above: Result Comment: Random Glucose Reference Range is dependent on time and content of last meal. Glucose of more than 200 mg/dL in a nonstressed, ambulatory subject supports the diagnosis of Diabetes Mellitus. ADA recommended reference rangePerformed By: #### CMP, SCAN CBC ####[facility] [place] [address] [place]#### AFPTM ####[facility] , Hematocrit [Volume Fraction] of Blood by Automated countOrdered By: Fabiola Marinelli on 02-77-5535Obpgfkbowu (Bld) [Volume fraction]32.2 %Low34.0-46.4FPremier HealthComment on above:Performed By: #### CMP, SCAN CBC ####[facility] [place] [address] [place]#### AFPTM ####[facility] ,Hemoglobin [Mass/volume] in BloodOrdered By: Fabiola Marinelli on 77-71-2967Awfudmzsdd (Bld) [Mass/Vol]10.8 g/dLLow11.8-15.4FPremier HealthComment on above:Performed By: #### CMP, SCAN CBC ####[place] [address] [place] [address] [place]#### AFPTM ####[facility] ,Leukocytes [#/volume] corrected for nucleated erythrocytes in Blood by Automated counOrdered By: Fabiola Berumense on 68-13-4724VEM corrected for nucl RBC Auto (Bld) [#/Vol]1.6 10*3/uLLow3.8-11.6FPremier HealthLeukocytes [#/volume] in Blood by Automated countOrdered By: Fabiola Yves on 60-27-2399ELQ (Bld) [#/Vol]1.6 10*3/uLLow3.8-11.6FPremier HealthComment on above:Performed By: #### CMP, SCAN CBC ####[place] [address] [place]#### AFPTM ####[facility] ,Lymphocytes [#/volume] in Blood by Automated countOrdered By: Fabiola Yves on 05-99-9995Tbgwobdvpel (Bld) [#/Vol]0.3 10*3/uLLow 1.00-4.8Sal[facility] City HospitalComment on above:Performed By: #### CMP, SCAN CBC ####[place] [address] [place]#### AFPTM ####[facility] ,Lymphocytes/100 leukocytes in Blood by Automated countOrdered By: Fabiola Yves on 29-26-7852Iulyhcugrdj/100 WBC (Bld)21.7 %Normal.[facility] City HospitalComment on above:Performed By: #### CMP, SCAN CBC ####[place] [address] [place]#### AFPTM ####[facility] ,MCH [Entitic mass] by Automated countOrdered By: Fabiola Yves on 32-54-1232DFZ (RBC) [Entitic mass]33.0 suRcxndm72.7-34.3FPremier HealthComment on above: Performed By: #### CMP, SCAN CBC ####[place] [address] [place]#### AFPTM ####[facility] ,MCHC Auto (RBC) [Mass/Vol]Ordered By: Fabiola Marinelli on 53-81-4842EYJX (RBC) [Mass/Vol]33.5 g/dL 32.0-35.0Sal[facility] City HospitalMCV [Entitic volume] by Automated countOrdered By: Fabiola Marinelli on 62-47-5025HVB (RBC) [Entitic vol]98.5 fLNormal 80-100Sal[facility] City HospitalComment on above:Performed By: #### CMP, SCAN CBC ####[place] [address] [place]#### AFPTM ####[facility] ,Monocytes [#/volume] in Blood by Automated countOrdered By: Fabiola Marinelli on 81-80-2888Yutmrccnp (Bld) [#/Vol]0.3 10*3/uLNormal0.0-0.8Sal[facility] City HospitalComment on above:Performed By: #### CMP, SCAN CBC ####[place] [address] [place]#### AFPTM ####[facility] ,Monocytes/100 leukocytes in Blood by Automated countOrdered By: Fabiola Marinelli on 06-14-2025 Monocytes/100 WBC (Bld)19.4 %Normal.[facility]em City HospitalComment on above:Performed By: #### CMP, SCAN CBC ####[place] [address] [place]#### AFPTM ####[facility] , Neutrophils [#/volume] in Blood by Automated countOrdered By: Fabiola Marinelli on 29-42-7948Aansxqkvson (Bld) [#/Vol]0.5 10*3/uLLow1.8-7.7FPremier HealthComment on above:Performed By: #### CMP, SCAN CBC ####[facility] [id number] [place] [address] [place]#### AFPTM ####[facility] ,Neutrophils/100 leukocytes in Blood by Automated count Ordered By: Fabiola Marinelli on 60-32-3476Tqvksopphpn/100 WBC (Bld)29.4 %Normal. [facility] City HospitalComment on above:Performed By: #### CMP, SCAN CBC ####[facility] [id number] [place] [address] [place]#### AFPTM ####[facility] ,No Panel InformationOrdered By: Fabiola Marinelli on 06-14-2025> 60.0 mL/MinSalem City Hospital56.54Salem City HospitalNucleated erythrocytes [Presence] in Blood by Automated countOrdered By: Fabiola Marinelli on 32-28-4936Zydxopcvj RBC Auto Ql (Bld)0.0 /100{WBC} 0-0.5FPremier HealthPlatelet adequacy [Presence] in Blood by Light microscopyOrdered By: Fabiola Marinelli on 05-11-9310Olzyfwxgv LM Ql (Bld) DecreasedNoOhioHealth Marion General HospitalPlatelet mean volume [Entitic volume] in Blood by Automated countOrdered By: Fabiola Marinelli on 29-31-4212Evdqwyox mean volume (Bld) [Entitic vol]9.3 fLNormal6.3-10.7FPremier HealthComment on above:Performed By: #### CMP, SCAN CBC ####[facility] [address] [place] [address] [place]#### AFPTM ####[facility] ,Platelet morphology finding [Identifier] in BloodOrdered By: Fabiola Marinelli on 84-25-6743Sumkstep morphology finding Nom (Bld)NormalNormCherrington HospitalPlatelets [#/volume] in Blood by Automated countOrdered By: Fabiola Marinelli on 88-07-4279Oueullbrv (Bld) [#/Vol]45 10*3/mARxe736-671GjwnlfslsSalem City HospitalComment on above:Performed By: #### CMP, SCAN CBC ####[facility] [place] [address] [place]#### AFPTM ####[facility] ,Poikilocytosis [Presence] in Blood by Light microscopyOrdered By: Fabiola Marinelli on 60-88-1296Sjrucatvkklzol LM Ql (Bld)Slight Salem City HospitalPotassium [Moles/volume] in Serum or Plasma Ordered By: Fabiola Marinelli on 17-53-6848Kpzzobajn [Moles/Vol]4.5 mmol/LNormal3.5-5.1 [facility] City HospitalComment on above:Performed By: #### CMP, SCAN CBC ####[place] [address] [place]#### AFPTM ####[facility] ,Protein [Mass/volume] in Serum or Plasma Ordered By: Fabiola Marinelli on 48-94-8142Dhocexq [Mass/Vol]5.5 g/dLLow6.4-8.9Sal[facility] City HospitalComment on above:Performed By: #### CMP, SCAN CBC ####[place] [address] [place]#### AFPTM ####[facility] ,SCAN AND CBCon 77-45-5688Tsfiqrydeykr Ql (Bld) SlightNOMS HealthcareBasophils (Bld) [#/Vol]0 10*3/uL0.0 - 0.2 10*3/uLNOMS HealthcareBasophils/100 WBC Manual cnt (Syn fld)0.4 %.NOMS HealthcareEosinophils (Bld) [#/Vol]0.5 10*3/uLHigh0.0 - 0.45 10*3/uLNOMS HealthcareEosinophils/100 WBC Manual cnt (Syn fld)29.1 %.NOMS HealthcareErythrocyte distribution width (RBC) [Ratio]14.7 %11.9 - 15.3 %NOMS HealthcareHematocrit (Bld) [Volume fraction]32.2 %Low34.0 - 46.4 %[facility] HealthcareHemoglobin (Bld) [Mass/Vol]10.8 g/dLLow11.8 - 15.4 g/dLCACHE VALLEY HOSPITAL HealthcareInterpretation and review of laboratory resultsAbnormalNOPR HealthcareLymphocytes (Bld) [#/Vol]0.3 10*3/uLLow1.00 - 4.8 10*3/uLNOMS HealthcareLymphocytes/100 WBC Manual cnt (Syn fld)21.7 %.[facility] HospitalH (RBC) [Entitic mass]33 pg24.7 - 34.3 pgGeneral Leonard Wood Army Community HospitalHC (RBC) [Mass/Vol]33.5 g/dL32.0 - 35.0 g/dLGeneral Leonard Wood Army Community HospitalV (RBC) [Entitic vol]98.5 fL 80 - 100 fLCACHE VALLEY HOSPITAL HealthcareMonocytes (Bld) [#/Vol]0.3 10*3/uL0.0 - 0.8 10*3/uL [facility] HealthcareMonocytes+Macrophages/100 WBC Manual cnt (Syn fld)19.4 %.[facility] HealthcareNeutrophils (Bld) [#/Vol]0.5 10*3/uLLow1.8 - 7.7 10*3/uLNOMS HealthcareNeutrophils/100 WBC Manual cnt (Syn fld)29.4 %.[facility] HealthcareNRBC0 /100{WBC}0 - 0.5 /100{WBC}NOM HealthcarePLATELET ESTIMATEDecreasedNormalNOMS HealthcarePlatelet mean volume (Bld) [Entitic vol]9.3 fL6.3 - 10.7 fLNOPR HealthcarePLATELET MORPHOLOGYNormalNormalNOMS HealthcarePlatelets (Bld) [#/Vol] 45 10*3/tICpc387 - 450 10*3/uLNOPR HealthcarePOIKILOCYTOSISSlightLiberty Hospital RBC LM.HPF (Urine sed) [#/Area]3.27 10*6/uLLow3.60 - 5.00 10*6/uLNOMS Healthcare RBC morphology finding Nom (Bld)NormalNormalNOMS HealthcareWBC (Bld) [#/Vol]1.6 10*3/uLLow3.8 - 11.6 10*3/uLNOPR HealthcareWBC LM.HPF (Urine sed) [#/Area]1.6 [CFU]/mLLow3.8 - 11.6 [CFU]/mLNOMS HealthcareCACHE VALLEY [facility] HealthcareScan and CBCon 75-10-5931Eyee Corpuscular HGB Conc33.5 g/zHQlophk98.0-35.0The Adventhealth Physician GroupComment on above:Performed By: #### CMP, SCAN CBC ####[address]#### AFPTM ####[facility] ,NRBC%0.0 /100{WBC}Normal0-0.5The Adventhealth Physician GroupComment on above:Performed By: #### CMP, SCAN CBC ####[address]#### AFPTM ####[facility] ,Platelet EstimateDecreasedNormalShorePoint Health Port Charlotte Physician GroupComment on above:Performed By: #### CMP, SCAN CBC ####[address]#### AFPTM ####[facility] ,Platelet MorphologyNormalNormalNoAtrium Health Cabarrus Physician Group Comment on above:Result Comment: PERFORMED BY:[address] [place], [place] [phone] MEDICAL DIRECTORARIEL BRUCE M.D.Performed By: #### CMP, SCAN CBC ####[place] [address] [place]#### AFPTM ####[facility] ,PoikilocytosisSlightNoAtrium Health Cabarrus Physician GroupComment on above:Performed By: #### CMP, SCAN CBC ####[place] [address] [place]#### AFPTM ####[facility] ,White Blood Count1.6 [CFU]/mLLow3.8-11.6The Adventhealth Physician GroupComment on above:Performed By: #### CMP, SCAN CBC ####[place] [address] [place]#### AFPTM ####[facility] ,Serum globulin measurement by calculation (mass/volume)Ordered By: Fabiola Marinelli on 30-74-7000Qroxzprr (S) [Mass/Vol]2.0 g/dLNoOhioHealth Marion General HospitalComment on above:Performed By: #### CMP, SCAN CBC ####[place] [address] [place]#### AFPTM ####[facility] ,Serum or plasma albumin/globulin mass ratioOrdered By: Fabiola Marinelli on 22-88-7017Ueyzwlt/Globulin [Mass ratio]1.8 {ratio}The Jewish HospitalComment on above:Performed By: #### CMP, SCAN CBC ####[place] [address] [place]#### AFPTM ####[facility] ,Serum or plasma anion gap determinationOrdered By: Fabiola Marinelli on 97-23-3848Cuqmy gap [Moles/Vol]7.0 mmol/LNormal6.0-15.0 [facility] City HospitalComment on above:Performed By: #### CMP, SCAN CBC ####[place] [address] [place]#### AFPTM ####[facility] ,Sodium [Moles/volume] in Serum or Plasma Ordered By: Fabiola Marinelli on 73-41-6163Krglvy [Moles/Vol]136 mmol/BUtiols926-607 [facility] HospitalComment on above:Performed By: #### CMP, SCAN CBC ####[place] [address] [place]#### AFPTM ####[facility] ,Urea nitrogen [Mass/volume] in Serum or PlasmaOrdered By: Fabiola Marinelli on 40-63-5932Ysiu nitrogen [Mass/Vol]15 mg/dLNormal 05-26Sal[facility] City HospitalComment on above:Performed By: #### CMP, SCAN CBC ####[facility] [address] [place] [address] [facility]#### AFPTM ####[facility] ,Ambulatory Visit Summaryon 06-12-2025 Ambulatory Visit SummaryAmbulatory Visit Summary MOJGAN PÉREZ :1955 Visit Date:06/12/2025 Ambulatory Visit Instructions Your Diagnosis Gross hematuria History of kidney stones Your Care Team Attending Physician - MIGUEL ANGEL JASSO, Marlon Rangel Primary Care Physician - NUVIA HOYT, EMELY Roger Referring Physician - PAR[place], [place]. GARCIA LUNA This Is Your Medications List cephalexin (Keflex 500 mg Cap) Contact prescribing physician if questions or concerns acyclovir (acyclovir 400 mg Tab) albuterol (albuterol 0.083% Inh Odessa 3 mL) atorvastatin (Lipitor 80 mg Tab) carvedilol (carvedilol 12.5 mg Tab) duloxetine (Cymbalta) ergocalciferol (Vitamin D) fluticasone (fluticasone propionate) fluticasone-salmeterol (Advair 250 mcg-50 mcg Powder) metformin morphine (morphine 15 mg/8 hr oral tablet, extended release) omeprazole oxycodone semaglutide (semaglutide 2 mg/3 mL (0.25 mg or 0.5 mg dose) subcutaneous solution (Ozempic)) spironolactone (spironolactone 50 mg Tab) sulfamethoxazole-trimethoprim (sulfamethoxazole-trimethoprim 800 mg-160 mg Tab) Procedures Performed Colonoscopy (05/01/2015), Abdominal hysterectomy, Appendectomy, Arthroscopic knee procedure, Arthroscopy of knee, Carpal tunnel release, Cholecystectomy, Hemorrhoidectomy, History of hernia repair, History of operative procedure on elbow, Procedure on wrist, Repair of single tendon, Tubal ligation. Discharge Vitals Heart Rate (Peripheral) 70 Respiratory Rate 16 Blood Pressure 130/88 Height 160 cm Height 63 in Weight 89.9 kg Weight 198.195 lb BMI 35.12 What to do next You Need to Schedule the Following Appointments Follow Up with MIGUEL ANGEL JASSO, CESAR Cohen When: [facility] [place] [address] You Need to Complete the Following Urine Cytology ([facility]), Urine, Routine collect, 06/12/25, Order for future visit, Nurse collect, Gross hematuria History of kidney stones, Not Required, Print Label By Order Location, Voided, 1, Urine, Technical Only Medications What How Much When Instructions New cephalexin (Keflex 500 mg Cap) 1 Capsules By Mouth Every day take one day before procedure and take one day after procedure Pickup at [facility]/pharmacy #[id number] Unchanged acyclovir (acyclovir 400 mg Tab) 1 Tablets Contact prescribing physician if questions or concerns Unchanged albuterol (albuterol 0.083% Inh Odessa 3 mL) 3 Milliliter Nebulized inhalation (aerosol) As Directed Contact prescribing physician if questions or concerns Unchanged atorvastatin (Lipitor 80 mg Tab) 1 Tablets By Mouth Every day Contact prescribing physician if questions or concerns Unchanged carvedilol (carvedilol 12.5 mg Tab) 1 Tablets By Mouth 2 times a day Contact prescribing physician if questions or concerns Unchanged duloxetine (Cymbalta) 60 Milligram By Mouth Every day Contact prescribing physician if questions or concerns Unchanged ergocalciferol (Vitamin D) 50,000 International unit By Mouth Every day Contact prescribing physician if questions or concerns Unchanged fluticasone (fluticasone propionate) 50 Microgram Inhalation Contact prescribing physician if questions or concerns Unchanged fluticasone-salmeterol (Advair 250 mcg-50 mcg Powder) Inhalation 2 times a day Contact prescribing physician if questions or concerns Unchanged metformin 500 Milligram By Mouth 2 times a day Contact prescribing physician if questionsor concerns Unchanged morphine (morphine 15 mg/ 8 hr oral tablet, extended release) 1 Tablets Contact prescribing physician if questions or concerns Unchanged omeprazole 40 Milligram By Mouth Every day Contact prescribing physician if questions or concerns Unchanged oxycodone 10 Milligram By Mouth Contact prescribing physician if questions or concerns Unchanged semaglutide (semaglutide 2 mg/ 3 mL (0.25 mg or 0.5 mg dose) subcutaneous solution (Ozempic)) 0.25 Unknown, SUBCUTANEOUS, 0 Refill(s), for 4 weeks Contact prescribing physician if questionsor concerns Unchanged spironolactone (spironolactone 50 mg Tab) 1 Tablets Contact prescribing physician if questions or concerns Unchanged sulfamethoxazole-trimethoprim (sulfamethoxazole-trimethoprim 800 mg- 160 mg Tab) See instructions Contact prescribing physician if questions or concerns Pharmacy Information [id number]: [address], [place] [phone] Allergies Avelox (Unknown) Vibramycin (Unknown) Voltaren (Unknown) Problems Ongoing - Any problem that you are currently receiving treatment for. Anemia Chronic obstructive pulmonary disease Depression Diabetes Disease of liver Gross hematuria Headache History of kidney stones Hyperlipidemia Hypertension Multiple myeloma Patient Survey You may receive a survey via text or e-mail asking about your office visit. Please share your experience with us by completing your survey. We appreciate your feedback and thank you for choosing us for your care. E (more content not included)...[facility] Medical CenterUrine Cytology ([facility])on 83-67-8788AB Method of ExtractionVoidedMetroHealth Main Campus Medical CenterComment on above:Performed By: #### [id number] #### [facility] [address] [place], [place] [address]FA Number of Kqon3Exwrwyz Interpretation [facility] HospitalComment on above:Performed By: #### [id number] #### [facility] [address] [place], [place] [address]FL SpecimenUrineMetroHealth Main Campus Medical CenterComment on above:Performed By: #### [id number] #### [facility] [address] [place], [place] [address]BZ Type of ServiceTechnical OnlyMetroHealth Main Campus Medical CenterComment on above:Performed By: #### [id number] #### [facility] [address] [place], [place] [address]Cuwfmca Office/Clinic Noteon 09-54-3488Swrirce Office/Clinic NoteUrology Office/Clinic Note Chief Complaint new pt here for gross hematuria HPI Staff Pt is a 69 year old female referred by [facility] ER for gross hematuria Pt report that she was having blood clots in her urine, but no longer is having clots pt denies pain/burning denies visible blood pt denies flank pain History of Present Illness Tests reviewed: reviewed UA, referral records, MRI I have reviewed the previous health record information and history for this patient from Dr. Delgado and external providers. I have reviewed and verified the staff HPI to be accurate for this encounter. Review of Systems PHQ Score Initial Depression Screen Score: 0 SCORE ROS - Provider Constitutional: denies weight loss, denies hot flashes. Eyes: denies eye problems. Gastrointestinal: denies nausea, denies vomiting. Cardiovascular: denies chest pain or angina. Integumentary: no dryness Musculoskeletal: denies musculoskeletal symptoms. ENMT: denies otolaryngeal symptoms. Respiratory: no shortness of breath. Heme/Lymph: denies easy bleeding tendency, denies easy bruising tendency. Psychiatric: no confusion, no anxiety. Genitourinary: See HPI. Physical Exam Vitals & Measurements HR: 70(Peripheral) RR: 16 BP: 130/88 HT: 160 cm HT: 63 in WT: 89.9 kg WT: 198.195 lb BMI: 35.12 General Appearance: alert , no acute distress, well nourished, well developed female. Assessment/Plan Prior Dr. Delgado pt, last seen 2020. Referred by Dr. Garcia Sanchez for gross hematuria. Follows with Dr. Marinelli for hepatocellular carcinoma. Has plans to repeat liver ablation. 1. Gross hematuria (R31.0: Gross hematuria) MRI Abd w/wo con 04/17/25 [facility] - No renal mass or hydro. Reports she wiped and saw blood, dissipated as she wiped. Then saw blood in the toilet, was passingblood clots. Stopped after a day. Shares she does have hemorrhoids. Denies any pain/burning during gross hematuria episode. UA neg. Asx at this time. Reviewed imaging results which was nonconcerning urologically. Discussed hematuria workup includes upper urinary tract imaging (already done), evaluation of the urinary cells with urine cytology and possible a FISH test, and a cystoscopy to rule out lower urinary tract pathology. Pt aware that a distinct etiology of the hematuria may not be clear upon conclusion of the workup. The rationale for this workup has been discussed, and all questions have been answered. Informed consent will be obtained. Prophylactic antibiotics will be given. -Will schedule cystoscopy. The risks and benefits for cystoscopy have been discussed. The risks include bleeding, infection, and irritation of the bladder and urinary channel, among others. The patient, after being informed of procedural details and after questions have been answered, wishes to proceed. Full informed consent has been obtained. Will order Local anesthesia. -Urine sample to be sent for FISH/cytology (if enough) 2. History of kidney stones (Z87.442: Personal history of urinary calculi) No recent episodes. Drinks a high volume of water, fills water pitcher twice a day. No stones on her recent mri. Follow-up With When Contact Information MIGUEL ANGEL JASSO, Marlon Rangel, URL [address] [place] [address] Additional Instructions: sched cysto Patient Education Cystoscopy Hematuria, Adult I, Felipa Jules, personally scribed for Dr. Valenzuela on 06/12/2025 10:53:23. . Documentation recorded by the scribe, Felipa Jules, accurately reflects the services(s) I performed and decisions made by me. Authenticated by Dr. Valenzuela on 06/12/2025 10:54:33. Problem List/Past Medical History Ongoing Anemia Chronic obstructive pulmonary disease Depression Diabetes Disease of liver Gross hematuria Headache History of kidney stones Hyperlipidemia Hypertension Multiple myeloma Historical No qualifying data Procedure/Surgical History Colonoscopy (05/01/2015), Abdominal hysterectomy, Appendectomy, Arthroscopic knee procedure, Arthroscopy of knee, Carpal tunnel release, Cholecystectomy, Hemorrhoidectomy, History of hernia repair, History of operative procedure on elbow, Procedure on wrist, Repair of single tendon, Tubal ligation. Medications acyclovir 400 mg Tab, 400 mg= 1 tab(s) Advair 250 mcg-50 mcg Powder, Inhalation, BID albuterol 0.083% Inh Odessa 3 mL, 2.5 mg= 3 mL, NEB, As Directed carvedilol 12.5 mg Tab, 12.5 mg= 1 tab(s), Oral, BID Cymbalta, 60 mg, Oral, Daily fluticasone propionate, 50 mcg, Inhalation Lipitor 80 mg Tab, 80 mg= 1 tab(s), Oral, Daily metformin, 500 mg, Oral, BID morphine 15 mg/8 hr oral tablet, extended release, 15 mg= 1 tab(s) omeprazole, 40 mg, Oral, Daily oxycodone, 10 mg, Oral semaglutide 2 mg/3 mL (0.25 mg or 0.5 mg dose) subcutaneous solution (Ozempic) spironolactone 50 mg Tab, 50 mg= 1 tab(s) sulfamethoxazole-trimethoprim 800 mg-160 mg Tab, See Instructions Vitamin D, [address] Internationa (more content not included)...[facility] Medical CenterComment on above:Result Comment: Electronically Signed By: Marlon VALENZUELA MD\.br\Date and Time Signed: 06/12/25 10:54 EDT\.br\Electronically Co-Signed By: Felipa Jules\.br\Date and Time Co-Signed: 06/12/25 10:53 EDT Comprehensive Metabolic Panelon 79-51-2620Jdtxjny [Mass/Vol]3.5 g/dLNormal 3.5-5.7The Adventhealth Physician GroupComment on above:Performed By: #### SCAN CBC, CMP ####[place] [address] USAAlbumin/Globulin [Mass ratio]1.7 {ratio}NormalThe [facility] Physician Group Comment on above:Performed By: #### SCAN CBC, CMP ####[address] [address] USAALP [Catalytic activity/Vol]92 U/L Csnljy45-017Knc [facility] Physician GroupComment on above:Performed By: #### SCAN CBC, CMP ####[address] [address] USAALT [Catalytic activity/Vol]13 U/LNormal7-52The [facility] Physician GroupComment on above:Performed By: #### SCAN CBC, CMP ####[address] [address] USAAnion gap [Moles/Vol]8.3 mmol/LNormal6.0-15.0The [facility] Physician GroupComment on above:Performed By: #### SCAN CBC, CMP ####[address] [address] USAAST [Catalytic activity/Vol]28 U/YGdmfby71-44Aac [facility]ician [facility] Medical CenterComment on above:Performed By: #### SCAN CBC, CMP ####[place] [address] USABilirubin [Mass/Vol]1.1 mg/dL High0.3-1.0The [facility] Physician [facility] CenterComment on above:Performed By: #### SCAN CBC, CMP ####[place] [address] USACalcium [Mass/Vol]9.1 mg/dLNormal8.6-10.3The [facility] Physician GroupComment on above:Performed By: #### SCAN CBC, CMP ####[place] [address] USAChloride [Moles/Vol]102 mmol/LNormal 98-107The [facility] Physician [facility] CenterComment on above:Performed By: #### SCAN CBC, CMP ####[place] [address] [place] CO2 [Moles/Vol]31.3 mmol/LHigh21.0-31.0The [facility] Physician GroupComment on above:Performed By: #### SCAN CBC, CMP ####[place] [address] USACreatinine [Mass/Vol]1.14 mg/dLNormal0.60-1.20 The [facility]health Physician GroupComment on above:Performed By: #### SCAN CBC, CMP ####[place] [address] [place] Creatinine Clr Calc Tzryzqrk61.06NoAtrium Health Cabarrus Physician [facility] Medical CenterComment on above:Result Comment: PERFORMED BY:[address] [place], [place] [phone] MEDICAL BARBIE BRUCE M.D.Performed By: #### SCAN CBC, CMP ####[place] [address] USAGFR/1.73 sq M.predicted MDRD (S/P/Bld) [Vol rate/Area]52.763 mL/min/{1.73_m2}NormalThe Adventhealth Physician GroupComment on above:Performed By: #### SCAN CBC, CMP ####[place] [address] USAGlobulin (S) [Mass/Vol]2.1 g/dLNoalThSt. Luke's Fruitland Physician GroupComment on above:Performed By: #### SCAN CBC, CMP ####[place] [address] USAGlucose [Mass/Vol]94 mg/kVFnjxjt66-175Zvd [facility] Physician GroupComment on above: Result Comment: Random Glucose Reference Range is dependent on time and content of last meal. Glucose of more than 200 mg/dL in a nonstressed, ambulatory subject supports the diagnosis of Diabetes Mellitus. ADA recommended reference rangePerformed By: #### SCAN CBC, CMP ####[place] [address] USAPotassium [Moles/Vol]4.6 mmol/LNormal3.5-5.1 The [facility] Physician GroupComment on above:Performed By: #### SCAN CBC, CMP ####[address] [address] USAProtein [Mass/Vol]5.6 g/dLLow6.4-8.9The [facility] Physician GroupComment on above: Performed By: #### SCAN CBC, CMP ####[address] [address] USASodium [Moles/Vol]137 mmol/DHqmsgv377-556Nli [facility] Physician GroupComment on above:Performed By: #### SCAN CBC, CMP ####[address] [address] USAUrea nitrogen [Mass/Vol]14 mg/dLNormal7-25The [facility] Physician GroupComment on above:Performed By: #### SCAN CBC, CMP ####[address] [address] USADacrocytes [Presence] in Blood by Light microscopyOrdered By: Fabiola Marinelli on 46-82-4685Acboiuzspx LM Ql (Bld)Slight [facility] City HospitalFree K+L LT Chains, Qn, Son 79-67-7602Brtd [place] Light Chains, S<0.5Rbzdne1.3-19.4The [facility] Physician GroupComment on above:Performed By: #### VAHID SERUM, KAPPA, SPE ####[facility] ,Free Lambda Light Chains, S5.8 mg/LNormal5.7-26.3The [facility] Physician GroupComment on above:Performed By: #### VAHID SERUM, KAPPA, SPE ####[facility] , [place]/Lambda Ratio, S<0.37Verheb0.26-1.65The [facility]health Physician GroupComment on above:Result Comment: Performed at: [facility] Lab[address] [id number] Aeronautical Design Engineer: Lang Knight PhD, Phone: [phone] BY:[place] [address] [place], [place] [phone] MEDICAL BARBIE BRUCE M.D.Performed By: #### VAHID SERUM, KAPPA, SPE ####[facility] ,INR in Platelet poor plasma by Coagulation assayOrdered By: Garcia Sanchez on 99-82-8773MLQ Coag (PPP) [Relative time]1.3 {INR}The Jewish HospitalComment on above: Result Comment: INR Therapeutic Range A) Pre- and Peroperative OAT started two weeks before surgery. NOT HIP SURGERY: 1.5 - 2.5 HIP SURGERY: 2 - 3 B) Primary and secondary prevention of venous THROMBOSIS: 2 - 3 C) Active venous thrombosis, pulmonary embolism and prevention of recurrent venous thrombosis: 2 - 3 D) Prevention of arterial thromboembolism including patients with mechanical heart valves: 3 - 4.5PERFORMED BY:[place] [address] [place], [place] [phone] MEDICAL BARBIE BRUCE M.D.Performed By: #### PT ####[address] [place] [address] USAImmunofixation,Serumon 60-96-0161Sekzviurzhucqv, SerumCommentNormal.The [facility]health Physician GroupComment on above:Result Comment: No monoclonality detected.Performed By: #### VAHID SERUM, KAPPA, SPE ####[facility] ,Immunoglobulin A, Serum<7Dxqlgo00-612Vqd [facility] Comment on above:Result Comment: Result confirmed on concentration.Performed By: #### VAHID SERUM, KAPPA, SPE ####[facility] ,Immunoglobulin G728 mg/dL Ybtrps713-6646Emt [facility] Physician GroupComment on above:Performed By: #### VAHID SERUM, KAPPA, SPE ####[facility] ,Immunoglobulin M, Serum12 mg/dL Ccsenn99-814Ygl [facility] Physician GroupComment on above:Result Comment: Result confirmed on concentration. Performed at: [facility] [facility] [id number] Aeronautical Design Engineer: Lang Knight PhD, Phone: [phone] Performed By: #### VAHID SERUM, KAPPA, SPE ####[facility] ,Microcytes LM Ql (Bld)Ordered By: Fabiola Marinelli on 83-75-2067Rrbtvrjdgq Ql (Bld)[facility] CenterNo Panel InformationOrdered By: Fabiola Marinelli on 06-07-2025 Not observed g/dLNot ObservedSalem City HospitalComment.Salem City HospitalOvalocytes [Presence] in Blood by Light microscopyOrdered By: Fabiola Marinelli on 64-43-3145Xbnbhfvdqr LM Ql (Bld)[facility] Medical CenterPlatelets Large [Presence] in Blood by Light microscopyOrdered By: Fabiola Marinelli on 87-61-4812Hzsufrcqh Large LM Ql (Bld)[facility] Medical CenterProtein Electrophoresis, Serumon 46-17-2542Qllbn-1-Globulin0.3 g/dLNormal0.0-0.4The Adventhealth Physician GroupComment on above:Performed By: #### VAHID SERUM, KAPPA, SPE ####[facility] ,Nwjmo-6-Zudoxsns5.6 g/dL Normal0.4-1.0The [facility] Physician GroupComment on above:Performed By: #### VAHID SERUM, KAPPA, SPE ####[facility] ,Beta Globulin0.8 g/dLNormal 0.7-1.3The [facility] Physician GroupComment on above:Performed By: #### VAHID SERUM, KAPPA, SPE ####[facility] ,Gamma Globulin0.6 g/dLNormal0.4-1.8 The [facility] Physician GroupComment on above:Performed By: #### VAHID SERUM, KAPPA, SPE ####[facility] ,M-SpikeNot ObservedNormalNot ObservedThe Adventhealth Physician GroupComment on above:Performed By: #### VAHID SERUM, KAPPA, SPE ####[facility] ,SPE-NoteCommentNormal.The Adventhealth Physician GroupComment on above:Result Comment: Protein electrophoresis scan will follow via computer, mail, or insulation batting machine operator delivery. Performed at: - [place] [id number] Aeronautical Design Engineer: Lang Knight PhD, Phone: [phone] By: #### VAHID SERUM, KAPPA, SPE ####[facility] , Prothrombin time (PT)Ordered By: Garcia Sanchez on 11-70-9767TD Coag (PPP) [Time] 14.7 sHigh9.0-12.9Salem City HospitalComment on above:Result Comment: A hematocrit value greater than 55% may lead to inaccurate results in coagulation testing. Patients having hematocrit values >55% require a special collection tube for coagulation studies. Please contact the laboratory at [phone] for redraw instructions.Performed By: #### PT ####[facility] [address] [place] [address] USAScan and CBCon 19-84-9930Cbrjbtkzmxke Ql (Bld)SlightNormalThe Adventhealth Physician GroupComment on above:Performed By: #### SCAN CBC, CMP ####[place] [address] USABasophils (Bld) [#/Vol]0.0 10*3/uLNormal 0.0-0.2The [facility] Physician GroupComment on above:Performed By: #### SCAN CBC, CMP ####[place] [address] USABasophils/100 WBC (Bld)0.4 %Normal.The [facility]health Physician GroupComment on above:Performed By: #### SCAN CBC, CMP ####[place] [address] USAEosinophils (Bld) [#/Vol]0.6 10*3/uLHigh 0.0-0.45The [facility] Physician GroupComment on above:Performed By: #### SCAN CBC, CMP ####[place] [address] USAEosinophils/100 WBC (Bld)29.7 %Normal.The [facility] Physician GroupComment on above:Performed By: #### SCAN CBC, CMP ####[place] [address] USAErythrocyte distribution width (RBC) [Ratio] 14.6 %Xyjgnp12.9-15.3The [facility] Physician GroupComment on above:Performed By: #### SCAN CBC, CMP ####[place] [address] USAHematocrit (Bld) [Volume fraction]32.4 %Low34.0-46.4The [facility] Physician GroupComment on above:Performed By: #### SCAN CBC, CMP ####[place] [address] USAHemoglobin (Bld) [Mass/Vol]11.0 g/dLLow11.8-15.4The [facility] Physician GroupComment on above: Performed By: #### SCAN CBC, CMP ####[place] [address] USALarge PlateletsSlightNormalThe Adventhealth Physician GroupComment on above:Result Comment: PERFORMED BY:[address] [place], [place] [phone] MEDICAL DIRECTORARIEL BRUCE M.D.Performed By: #### SCAN CBC, CMP ####[address] [address] USALymphocytes (Bld) [#/Vol]0.4 10*3/uLLow1.00-4.8The [facility] Physician GroupComment on above: Performed By: #### SCAN CBC, CMP ####[address] [address] USALymphocytes/100 WBC (Bld)22.0 %Normal.The [facility] Physician GroupComment on above:Performed By: #### SCAN CBC, CMP ####[address] [address] [facility] (RBC) [Entitic mass]33.1 fkTagyqo67.7-34.3The [facility] Physician GroupComment on above: Performed By: #### SCAN CBC, CMP ####[address] [address] [facility] (RBC) [Entitic vol]97.5 dEHoktlt45-694Rmi [facility] Physician GroupComment on above:Performed By: #### SCAN CBC, CMP ####[address] [address] USAMean Corpuscular HGB Conc33.9 g/zWWacvek09.0-35.0The [facility] Physician GroupComment on above:Performed By: #### SCAN CBC, CMP ####[address] [address] USAMicrocytosisSlightNoOhioHealth Grove City Methodist Hospitale [facility] Physician [facility] Medical CenterComment on above:Performed By: #### SCAN CBC, CMP ####[address] [address] USAMonocytes (Bld) [#/Vol]0.4 10*3/uLNormal0.0-0.8The [facility] Physician GroupComment on above: Performed By: #### SCAN CBC, CMP ####[place] [address] USAMonocytes/100 WBC (Bld)19.9 %Normal.The [facility] Physician GroupComment on above:Performed By: #### SCAN CBC, CMP ####[place] [address] USANeutrophils (Bld) [#/Vol]0.6 10*3/uLLow1.8-7.7The [facility] Physician GroupComment on above: Performed By: #### SCAN CBC, CMP ####[place] [address] USANeutrophils/100 WBC (Bld)28.0 %Normal.The [facility] Physician GroupComment on above:Performed By: #### SCAN CBC, CMP ####[place] [address] USANRBC%0.2 /100{WBC} Normal0-0.5The [facility] Physician GroupComment on above:Performed By: #### SCAN CBC, CMP ####[place] [address] USAOvalocytesSlightNoAtrium Health Cabarrus Physician GroupComment on above:Performed By: #### SCAN CBC, CMP ####[place] [address] USAPlatelet EstimateDecreasedNormalShorePoint Health Port Charlotte Physician GroupComment on above:Performed By: #### SCAN CBC, CMP ####[place] [address] USAPlatelet mean volume (Bld) [Entitic vol]8.9 fLNormal6.3-10.7The [facility] Physician GroupComment on above:Performed By: #### SCAN CBC, CMP ####[place] [address] USAPlatelets (Bld) [#/Vol]48 10*3/jWRsp185-645Cgd [facility] Physician GroupComment on above:Performed By: #### SCAN CBC, CMP ####[address] [address] USA PoikilocytosisSHaywood Regional Medical Center Physician GroupComment on above: Performed By: #### SCAN CBC, CMP ####[address] [address] USARBC (Bld) [#/Vol]3.32 10*6/uLLow3.60-5.00The [facility] Physician GroupComment on above:Performed By: #### SCAN CBC, CMP ####[address] [address] USATear Drop CellsSlightShorePoint Health Port Charlotte Physician GroupComment on above:Performed By: #### SCAN CBC, CMP ####[address] [address] USAWBC (Bld) [#/Vol]2.0 10*3/uLLow3.8-11.6The [facility] Physician GroupComment on above:Performed By: #### SCAN CBC, CMP ####[address] [address] USAWhite Blood Count2.0 [CFU]/mLLow3.8-11.6The [facility] Physician [facility] Medical CenterComment on above:Performed By: #### SCAN CBC, CMP ####[address] [address] USASerum free kappa light chain measurementOrdered By: Fabiola Marinelli on 95-90-5064Vzewpldpgrjqad light chains.kappa.free (S) [Mass/Vol]<0.7 mg/LLow 3.3-19.4FSouthview Medical Centererum globulin measurement (mass/volume)Ordered By: Fabiola Marinelli on 86-65-0464Ijcvnsch (S) [Mass/Vol]2.4 g/dL Normal2.2-3.9Salem City HospitalComment on above:Performed By: #### VAHID SERUM, KAPPA, SPE ####[facility] ,Serum immunoglobulin free kappa light chains/immunoglobulin free lambda light chainsOrdered By: Fabiola Marinelli on 84-96-4660Nomppjjxstlyix light chains.kappa.free/Immunoglobulin light chains.lambda.free (S) [Mass ratio]<0.12Low0.26-1.65Riverview Health Instituteerum or plasma IgA measurement (mass/volume)Ordered By: Fabiola Marinelli on 07-37-6422BvC [Mass/Vol]mg/vTVih00-655SzytwlxqlRiverview Health Instituteerum or plasma IgG measurement (mass/volume)Ordered By: Fabiola Marinelli on 09-33-8935SjW [Mass/Vol]728 mg/hQ584-5760MhtuawlsvRiverview Health Instituteerum or plasma IgM measurement (mass/volume)Ordered By: Fabiola Marinelli on 23-55-9155CuM [Mass/Vol]12 mg/zJLpj72-809NpsmdmsxtRiverview Health Instituteerum or plasma albumin measurement (mass/volume)Ordered By: Fabiola Marinelli on 19-64-6000Yifinkr [Mass/Vol] 3.0 g/dLNormal2.9-4.4FPremier HealthComment on above:Performed By: #### VAHID SERUM, KAPPA, SPE ####[facility] ,Serum or plasma albumin/globulin mass ratioOrdered By: Fabiola Marinelli on 56-03-8919Ulxlqgp/Globulin [Mass ratio]1.3 {ratio}Normal0.7-1.7FPremier HealthComment on above:Performed By: #### VAHID SERUM, KAPPA, SPE ####[facility] ,Serum or plasma alpha 1 globulin measurement by electrophoresis (mass/volume)Ordered By: Fabiola Marinelli on 67-63-5877Qlhgv 1 globulin Elph [Mass/Vol]0.3 g/dL0.0-0.4 River[facility] Health Instituteerum or plasma alpha 2 globulin measurement by electrophoresis (mass/volume)Ordered By: Fabiola Marinelli on 14-51-1924Xxhci 2 globulin Elph [Mass/Vol]0.6 g/dL0.4-1.0Riverview Health Instituteerum or plasma beta globulin measurement by electrophoresis (mass/volume)Ordered By: Fabiola Marinelli on 68-42-5214Yubg globulin Elph [Mass/Vol]0.8 g/dL0.7-1.3FSouthview Medical Centererum or plasma gamma globulin measurement by electrophoresis (mass/volume)Ordered By: Fabiola Marinelli on 60-84-6620Qzbjn globulin Elph [Mass/Vol]0.6 g/dL0.4-1.8Riverview Health Instituteerum or plasma immunoglobulin free lambda light chains measurement (mass/volume)Ordered By: Fabiola Marinelli on 92-85-4733Nhybprkaosryaw light chains.lambda.free [Mass/Vol]5.8 mg/L 5.7-26.3FSouthview Medical Centererum total protein measurementOrdered By: Fabiola Marinelli on 57-35-8275Wbpqaus [Mass/Vol]5.4 g/dLNormal6.0-8.5FPremier HealthComment on above:Performed By: #### VAHID SERUM, KAPPA, SPE ####[facility] ,Bacteria [Presence] in Urine by AutomatedOrdered By: Garcia Sanchez on 37-65-9112Flyohemy Auto Ql (U)1+ [HPF]HighNone SeenSalem City HospitalBasophils [#/volume] in Blood by Automated countOrdered By: Fabiola Marinelli on 14-09-2081Xtswabfki (Bld) [#/Vol]0.0 10*3/uLNormal0.0-0.2 Salem City HospitalComment on above:Performed By: #### SCAN CBC ####[facility] [address] [place] [address] [place] Basophils/100 leukocytes in Blood by Automated countOrdered By: Fabiola Marinelli on 69-59-7879Iiytkkcdj/100 WBC (Bld)0.3 %Normal.[facility] Comment on above:Performed By: #### SCAN CBC ####[facility] [address] [place] [address] USABilirubin Test strip Ql (U)Ordered By: Garcia Sanchez on 81-81-7729Nrqragntt Ql (U)See commentNegativeSalem City HospitalDipstick and Microscopicon 04-31-6897Ffbphszi,Urine1+ [HPF]Normal None SeenThe Adventhealth Physician GroupComment on above:Order Comment: Name Collection Type:: Clean-Voided MidstreamPerformed By: #### CUU, ADDONUAPLUS ####[address] [place] Bilirubin,UrineNormalNegativeNorth Ridge Medical Center Physician GroupComment on above:Order Comment: Name Collection Type:: Clean-Voided MidstreamResult Comment: Unable to obtain accurate result due to color interference.Performed By: #### CUU, ADDONUAPLUS ####[address] USAGlucose Ql (U)NormalNormalThe Adventhealth Physician GroupComment on above: Order Comment: Name Collection Type:: Clean-Voided MidstreamResult Comment: Unable to obtain accurate result due to color interference.Performed By: #### CUU, ADDONUAPLUS ####[address] [address] USAHyaline Casts,UrineNoneNormal0-8The [facility] Physician GroupComment on above:Order Comment: Name Collection Type:: Clean-Voided MidstreamResult Comment: PERFORMED BY:[address] [place], [place] [phone] MEDICAL BARBIE BRUCE M.D.Performed By: #### CUU, ADDONUAPLUS ####[address] USAKetones Ql (U)NormalNegativeNorth Ridge Medical Center Physician GroupComment on above:Order Comment: Name Collection Type:: Clean-Voided MidstreamResult Comment: Unable to obtain accurate result due to color interference.Performed By: #### CUU, ADDONUAPLUS ####[address] USALeukocyte esterase Test strip Ql (U) NormalNegativeNorth Ridge Medical Center Physician GroupComment on above:Order Comment: Name Collection Type:: Clean-Voided MidstreamResult Comment: Unable to obtain accurate result due to color interference.Performed By: #### CUU, ADDONUAPLUS ####[address] [id number] [place] Nitrite,UrineNormalNegativeThe Adventhealth Physician GroupComment on above:Order Comment: Name Collection Type:: Clean-Voided MidstreamResult Comment: Unable to obtain accurate result due to color interference.Performed By: #### CUU, ADDONUAPLUS ####[address], [place] USAOccult Blood,UrineNormalNegativeThe Adventhealth Physician GroupComment on above:Order Comment: Name Collection Type:: Clean-Voided MidstreamResult Comment: Unable to obtain accurate result due to color interference.Performed By: #### CUU, ADDONUAPLUS ####[address], [id number] USApH,UrineNormal5.0-9.0The [facility] Comment on above:Order Comment: Name Collection Type:: Clean-Voided Midstream Result Comment: Unable to obtain accurate result due to color interference. Performed By: #### CUU, ADDONUAPLUS ####[address], [id number] USAProtein,UrineNormalNegativeThe Adventhealth Physician GroupComment on above:Order Comment: Name Collection Type:: Clean-Voided MidstreamResult Comment: Unable to obtain accurate result due to color interference.Performed By: #### CUU, ADDONUAPLUS ####[address], [id number] USARBC,UrineInnumerableNormal0-4The [facility] Physician GroupComment on above:Order Comment: Name Collection Type:: Clean-Voided MidstreamPerformed By: #### CUU, ADDONUAPLUS ####[address], [address] USASpecificy [place],Urine1.010 Normal1.001-1.030The [facility]health Physician GroupComment on above:Order Comment: Name Collection Type:: Clean-Voided MidstreamResult Comment: Rechecked by refractometerPerformed By: #### CUU, ADDONUAPLUS ####[address], [id number] USASquamous Epithelial Cell,Urine5-9Normal 0-2The [facility] Physician GroupComment on above:Order Comment: Name Collection Type:: Clean-Voided MidstreamPerformed By: #### CUU, ADDONUAPLUS ####[address] USAUrobilinogen,Urine NormalNormalThe [facility]health Physician GroupComment on above:Order Comment: Name Collection Type:: Clean-Voided MidstreamResult Comment: Unable to obtain accurate result due to color interference.Performed By: #### CUU, ADDONUAPLUS ####[address] [place] WBC,UrineInnumerableNormal0-4The [facility] Physician GroupComment on above:Order Comment: Name Collection Type:: Clean-Voided MidstreamPerformed By: #### CUU, ADDONUAPLUS ####[address] USAEosinophils [#/volume] in Blood by Automated countOrdered By: Fabiola Marinelli on 08-15-0794Kmrcxfhsbrc (Bld) [#/Vol]0.7 10*3/uLHigh0.0-0.45Salem City HospitalComment on above:Performed By: #### SCAN CBC ####[address] [address] USAEosinophils/100 leukocytes in Blood by Automated countOrdered By: Fabiola Marinelli on 05-30-2025 Eosinophils/100 WBC (Bld)29.1 %Normal.Sal[facility] City HospitalComment on above:Performed By: #### SCAN CBC ####[address] [address] USAEpithelial cells.squamous [#/area] in Urine sediment by Automated countOrdered By: Garcia Sanchez on 00-33-2076Nkombawvxd cells.squamous Auto (Urine sed) [#/Area]5-9 [HPF]High0-2FPremier HealthErythrocyte distribution width [Ratio] by Automated countOrdered By: Fabiola Marinelli on 81-23-2651Jcnazjskbfl distribution width (RBC) [Ratio]14.8 % Toqhwe55.9-15.3FPremier HealthComment on above:Performed By: #### SCAN CBC ####[place] [address] USAErythrocyte morphology finding [Identifier] in BloodOrdered By: Fabiola Marinelli on 18-55-2859XOC morphology finding Nom (Bld)NormalNormalNoOhioHealth Marion General HospitalComment on above:Performed By: #### SCAN CBC ####[place] [address] [place] Erythrocytes [#/area] in Urine sediment by Automated countOrdered By: Garcia Sanchez on 52-80-1017NHZ Auto (Urine sed) [#/Area]Innumerable [HPF]High0-4FPremier HealthErythrocytes [#/volume] in Blood by Automated count Ordered By: Fabiola Marinelli on 92-37-8249DOZ (Bld) [#/Vol]3.34 10*6/uLLow3.60-5.00 [facility] City HospitalComment on above:Performed By: #### SCAN CBC ####[place] [address] USAGlucose [Mass/volume] in Urine by Test stripOrdered By: Garcia Sanchez on 05-30-2025 Glucose Test strip (U) [Mass/Vol]See commentNormalSalem City HospitalHematocrit [Volume Fraction] of Blood by Automated countOrdered By: Fabiola Marinelli on 76-50-2352Glegsquqvh (Bld) [Volume fraction]33.0 %Low34.0-46.4FPremier HealthComment on above:Performed By: #### SCAN CBC ####[place] [address] [facility] Hemoglobin Test strip Ql (U)Ordered By: Garcia Sanchez on 82-31-4567Vmlfzubcnr Ql (U)See commentNegativeSalem City HospitalHemoglobin [Mass/volume] in BloodOrdered By: Fabiola Marinelli on 92-63-7585Jbtlnkdjsl (Bld) [Mass/Vol]11.0 g/dL Low11.8-15.4FPremier HealthComment on above:Performed By: #### SCAN CBC ####[facility] [address] [place] [address] USAHyaline casts [#/area] in Urine sediment by Automated countOrdered By: Garcia Sanchez on 65-14-9706Awffoaz casts Auto (Urine sed) [#/Area]None [LPF]0-8 [facility] City HospitalKetones Test strip (U) [Mass/Vol]Ordered By: Garcia Sanchez on 51-55-9883Bftttwv (U) [Mass/Vol]See commentNegativeSalem City HospitalLeukocyte esterase [Presence] in Urine by Test strip Ordered By: Garcia Sanchez on 19-73-4026Egwbgswed esterase Test strip Ql (U)See commentNegTrumbull Memorial HospitalLeukocytes [#/area] in Urine sediment by Automated countOrdered By: Garcia Sanchez on 41-65-9148VGU Auto (Urine sed) [#/Area]Innumerable [HPF]High0-4FPremier Health Leukocytes [#/volume] corrected for nucleated erythrocytes in Blood by Automated counOrdered By: Fabiola Marinelli on 43-18-8635JHZ corrected for nucl RBC Auto (Bld) [#/Vol]2.4 10*3/uLLow3.8-11.6FPremier HealthLeukocytes [#/volume] in Blood by Automated countOrdered By: Fabiola Marinelli on 47-66-6697UPH (Bld) [#/Vol]2.4 10*3/uLLow3.8-11.6FPremier HealthComment on above:Performed By: #### SCAN CBC ####[facility] [address] [place] [address] USALymphocytes [#/volume] in Blood by Automated count Ordered By: Fabiola Marinelli on 84-39-0419Gksvldhfaer (Bld) [#/Vol]0.5 10*3/uLLow 1.00-4.8Sal[facility] City HospitalComment on above:Performed By: #### SCAN CBC ####[place] [address] USALymphocytes/100 leukocytes in Blood by Automated countOrdered By: Fabiola Marinelli on 77-45-6271Anpnouuaykw/100 WBC (Bld)22.3 %Normal.Sal[facility] City HospitalComment on above:Performed By: #### SCAN CBC ####[place] [address] [facility] [Entitic mass] by Automated countOrdered By: Fabiola Marinelli on 41-90-6654NDN (RBC) [Entitic mass]33.0 ctWatnkq50.7-34.3FPremier HealthComment on above:Performed By: #### SCAN CBC ####[address] Auto (RBC) [Mass/Vol]Ordered By: Fabiola Marinelli on 99-52-7558ZWLW (RBC) [Mass/Vol]33.4 g/dL32.0-35.0Salem City HospitalMCV [Entitic volume] by Automated countOrdered By: Fabiola Marinelli on 07-98-4616UMJ (RBC) [Entitic vol]98.7 fZIkjwjf96-433WetwcslrySalem City HospitalComment on above: Performed By: #### SCAN CBC ####[place] [address] USAMonocytes [#/volume] in Blood by Automated count Ordered By: Fabiola Marinelli on 58-66-0135Cnjirjbyn (Bld) [#/Vol]0.5 10*3/uLNormal 0.0-0.8Sal[facility] City HospitalComment on above:Performed By: #### SCAN CBC ####[place] [address] [place] Monocytes/100 leukocytes in Blood by Automated countOrdered By: Fabiola Marinelli on 70-66-5025Smutqmtep/100 WBC (Bld)19.8 %Normal.[facility] Comment on above:Performed By: #### SCAN CBC ####[place] [address] [place] [address] USANeutrophils [#/volume] in Blood by Automated countOrdered By: Fabiola Marinelli on 84-44-2265Cqwoxdfcuqw (Bld) [#/Vol]0.7 10*3/uLLow1.8-7.7FPremier HealthComment on above:Performed By: #### SCAN CBC ####[place] [address] USANeutrophils/100 leukocytes in Blood by Automated countOrdered By: Fabiola Marinelli on 03-62-3958Bqvxtqkfhzo/100 WBC (Bld)28.5 %Normal.[facility] City HospitalComment on above:Performed By: #### SCAN CBC ####[place] [address] USANitrite Test strip Ql (U)Ordered By: Garcia Sanchez on 17-64-5932Gdjqjec Ql (U)See commentNegative Salem City HospitalNucleated erythrocytes [Presence] in Blood by Automated countOrdered By: Fabiola Marinelli on 77-13-3812Glnzonkhk RBC Auto Ql (Bld)0.4 /100{WBC}0-0.5FPremier HealthPlatelet adequacy [Presence] in Blood by Light microscopyOrdered By: Fabiola Marinelli on 83-76-4451Jhvxjsqca LM Ql (Bld)DecreasedLowNoOhioHealth Marion General HospitalPlatelet mean volume [Entitic volume] in Blood by Automated countOrdered By: Fabiola Marinelli on 05-30-2025 Platelet mean volume (Bld) [Entitic vol]9.3 fLNormal6.3-10.7FPremier HealthComment on above:Performed By: #### SCAN CBC ####[place] [address] USAPlatelet morphology finding [Identifier] in BloodOrdered By: Fabiola Marinelli on 36-47-4638Nxgczoww morphology finding Nom (Bld)NormalNormCherrington Hospital Platelets [#/volume] in Blood by Automated countOrdered By: Fabiola Marinelli on 73-02-9208Epgnmrita (Bld) [#/Vol]53 10*3/pXFli082-233EmrdantetSalem City HospitalComment on above:Performed By: #### SCAN CBC ####[address] [address] USAProtein Test strip (U) [Mass/Vol]Ordered By: Garcia Sanchez on 88-41-7129Pnzbpyj (U) [Mass/Vol]See commentNegativeRiverview Health Institutecan and CBCon 79-32-2767Urat Corpuscular HGB Conc33.4 g/yNYkwxjp82.0-35.0The [facility] Physician GroupComment on above:Performed By: #### SCAN CBC ####[address] [address] USANRBC%0.4 /100{WBC}Normal0-0.5The [facility] Physician [facility] Medical CenterComment on above:Performed By: #### SCAN CBC ####[address] [address] USAPlatelet Estimate DecreasedNormalNormOrlando Health - Health [facility] Hospital Physician [facility] Medical CenterComment on above:Performed By: #### SCAN CBC ####[address] [address] USAPlatelet MorphologyNormalNormalNormOrlando Health - Health [facility] Hospital Physician Group Comment on above:Result Comment: PERFORMED BY:[address] [place] [phone] MEDICAL BARBIE BRUCE M.D.Performed By: #### SCAN CBC ####[address] [address] USAWhite Blood Count2.4 [CFU]/mL Low3.8-11.6The [facility] Physician GroupComment on above:Performed By: #### SCAN CBC ####[address] [address] [place] Specific gravity of Urine by RefractometryOrdered By: Garcia Sanchez on 05-30-2025 Specific gravity Refractometry (U) [Rel density]1.0101.001-1.030Salem City HospitalUrine Cultureon 42-44-8179Volamzcg identified Cx Nom (U) NormalThe Adventhealth Physician GroupComment on above:Performed By: #### CUU, ADDONUAPLUS ####[place] [address] [place], [place] USAUrine appearance determinationOrdered By: Garcia Sanchez on 05-30-2025 Appearance (U)TurbidCritically abnormalCleNewark Hospital Comment on above:Order Comment: Name Collection Type:: Clean-Voided Midstream Performed By: #### CUU, ADDONUAPLUS ####[place] [address] [place], [place] USAUrine color determinationOrdered By: Garcia Sanchez on 63-50-0015Nuiow (U)RedCritically abnormalYelParkview Health Bryan Hospital Comment on above:Order Comment: Name Collection Type:: Clean-Voided Midstream Performed By: #### CUU, ADDONUAPLUS ####[address] USAUrine cultureOrdered By: Garcia Sanchez on 05-30-2025 Bacteria identified Cx Nom (U)Klebsiella pneumoniae (ESBL)AbnormalSalem City HospitalUrobilinogen Test strip (U) [Mass/Vol]Ordered By: Garcia Sanchez on 86-34-6906Epzbomryjztv (U) [Mass/Vol]See commentNoalSalem City HospitalpH Test strip (U)Ordered By: Garcia Sanchez on 69-96-0940qV (U)See comment5.0-9.0Salem City HospitalUS venous duplex LE RTon 17-01-3237ZQ venous duplex LE RTNoAtrium Health Cabarrus Physician PxnduC7Z with Estimated Average Gluon 03-36-0404Imulnkz [Mass/Vol]117 mg/dLNoAtrium Health Cabarrus Physician GroupComment on above:Result Comment: PERFORMED BY:[place] [address] [place], [place] [phone] MEDICAL BARBIE BRUCE M.D.Performed By: #### A1C WTH eA, PT ####[place] [address] [place] [place] [id number] USAAlanine aminotransferase [Enzymatic activity/volume] in Serum or PlasmaOrdered By: Fabiola Marinelli on 48-87-9077GJA [Catalytic activity/Vol]12 U/LNormal7-52Salem City HospitalComment on above:Performed By: #### SCAN CBC, CMP ####[place] [address] USAAlbumin [Mass/volume] in Serum or Plasma by Bromocresol green (BCG) dye binding metho Ordered By: Fabiola Marinelli on 29-24-3893Pnpnfcx BCG dye [Mass/Vol]3.3 g/dLLow3.5-5.7 [facility] City HospitalAlkaline phosphatase [Enzymatic activity/volume] in Serum or PlasmaOrdered By: Fabiola Marinelli on 98-20-7919NXT [Catalytic activity/Vol]103 U/HFhqxsl54-038GoclcxlhkSalem City Hospital Comment on above:Performed By: #### SCAN CBC, CMP ####[place] [address] USAAnisocytosis [Presence] in Blood by Light microscopyOrdered By: Fabiola Marinelli on 38-63-3036Rythfnpevtdv Ql (Bld)Slight NormalSalem City HospitalComment on above:Performed By: #### SCAN CBC, CMP ####[place] [address] USAAspartate aminotransferase [Enzymatic activity/volume] in Serum or Plasma Ordered By: Fabiola Marinelli on 11-04-2808ZTH [Catalytic activity/Vol]26 U/YNsfpis00-27 [facility] City HospitalComment on above:Performed By: #### SCAN CBC, CMP ####[place] [address] [place] Basophils [#/volume] in Blood by Automated countOrdered By: Fabiola Marienlli on 57-90-9497Okeonymed (Bld) [#/Vol]0.0 10*3/uLNormal0.0-0.2FPremier HealthComment on above:Performed By: #### SCAN CBC, CMP ####[place] [address] USABasophils/100 leukocytes in Blood by Automated countOrdered By: Fabiola Marinelli on 05-17-2025 Basophils/100 WBC (Bld)0.4 %Normal.Salem City HospitalComment on above:Performed By: #### SCAN CBC, CMP ####[facility] [address] [place] [id number] USABilirubin.total [Mass/volume] in Serum or PlasmaOrdered By: Fabiola Marinelli on 44-54-5823Mwwsdyskr [Mass/Vol]0.8 mg/dLNormal 0.3-1.0Sal[facility] City HospitalComment on above:Performed By: #### SCAN CBC, CMP ####[place] [address] USABlood estimated average glucose determination by estimation from glycated hemoglobinOrdered By: Emely Pedersen on 42-89-4408Myuphwm glucose Estimated from glycated hemoglobin (Bld) [Mass/Vol]117 mg/dLSalem City Hospital Calcium [Mass/volume] in Serum or PlasmaOrdered By: Fabiola Marinelli on 05-17-2025 Calcium [Mass/Vol]8.5 mg/dLLow8.6-10.3FPremier HealthComment on above:Performed By: #### SCAN CBC, CMP ####[place] [address] USACarbon dioxide, total [Moles/volume] in Serum or PlasmaOrdered By: Fabiola Marinelli on 29-31-6196FZ8 [Moles/Vol]26.5 mmol/LNormal 21.0-31.0Sal[facility] City HospitalComment on above:Performed By: #### SCAN CBC, CMP ####[place] [address] USAChloride [Moles/volume] in Serum or PlasmaOrdered By: Fabiola Marinelli on 41-24-0256Rwjmqbwd [Moles/Vol]106 mmol/SFweral25-251KdqfqlwyiSalem City HospitalComment on above:Performed By: #### SCAN CBC, CMP ####[place] [address] USAComprehensive Metabolic Panel on 40-81-7913Cjppwad [Mass/Vol]3.3 g/dLLow3.5-5.7[facility] Comment on above:Performed By: #### SCAN CBC, CMP ####[facility] [address] [place] [address] USACreatinine Clr Calc Cgnfkyca79.77 NormalThe Adventhealth Physician GroupComment on above:Result Comment: PERFORMED BY:[address] [place], [place] [phone] MEDICAL BARBIE BRUCE M.D.Performed By: #### SCAN CBC, CMP ####[place] [address] [place] [address] USAGFR/1.73 sq M.predicted MDRD (S/P/Bld) [Vol rate/Area]mL/min/{1.73_m2}Normal The [facility] Physician GroupComment on above:Performed By: #### SCAN CBC, CMP ####[facility] [place] [address] [place] Comprehensive metabolic panelon 53-11-6872Ogsxyxu [Mass/Vol]3.3 g/dLLow3.5 - 5.7 g/dLNOPR HealthcareAlbumin/Globulin [Mass ratio]1.7 {ratio}NOMS HealthcareALP [Catalytic activity/Vol]103 U/L34 - 104 U/LNOMS HealthcareALT [Catalytic activity/Vol]12 U/L7 - 52 U/LNOMS HealthcareAnion gap [Moles/Vol]8.8 mmol/L6.0 - 15.0NOMS HealthcareAST [Catalytic activity/Vol]26 U/L13 - 39 U/LNOMS Healthcare Bilirubin [Mass/Vol]0.8 mg/dL0.3 - 1.0 mg/dLNOMS HealthcareCalcium [Mass/Vol]8.5 mg/dLLow8.6 - 10.3 mg/dLNOPR HealthcareChloride [Moles/Vol]106 mmol/L98 - 107 mmol/LNOMS HealthcareCO2 [Moles/Vol]26.5 mmol/L21.0 - 31.0 mmol/LNOMS Healthcare Creatinine (U) [Mass/Vol]0.96 mg/dL0.60 - 1.20 mg/dLNOMS HealthcareCREATININE CLR CALC WULKVSYW42.77NOMS HealthcareESTIMATED GFRNOMS HealthcareGlobulin (S) [Mass/Vol]2 g/dLNOMS HealthcareGlucose [Mass/Vol]146 mg/vRKfwi05 - 100 mg/dLNOPR HealthcareComment on above:Random Glucose Reference Range is dependent on time and content of last meal. Glucose of more than 200 mg/dL in a nonstressed, ambulatory subject supports the diagnosis of Diabetes Mellitus. ADA recommended reference range Interpretation and review of laboratory resultsAbnormalNOMS HealthcarePotassium [Moles/Vol]4.3 mmol/L3.5 - 5.1 mmol/LNOMS HealthcareProtein [Mass/Vol]5.3 g/dL Low6.4 - 8.9 g/dLNOPR HealthcareSodium [Moles/Vol]137 mmol/L136 - 145 mmol/LNOMS HealthcareUrea nitrogen [Mass/Vol]23 mg/dL7 - 25 mg/dLNOWright Memorial HospitalNOPR HealthcareCreatinine [Mass/volume] in Serum or PlasmaOrdered By: Fabiola Marinelli on 12-45-6193Xvfpiqbbfo [Mass/Vol]0.96 mg/dLNormal0.60-1.20Sal[facility] City HospitalComment on above:Performed By: #### SCAN CBC, CMP ####[facility] [address] [place] [address] USAECG 12 lead ECGon 07-84-6721MZL 12 lead ECGNoAtrium Health Cabarrus Physician GroupEosinophils [#/volume] in Blood by Automated countOrdered By: Fabiola Marinelli on 05-17-2025 Eosinophils (Bld) [#/Vol]0.7 10*3/uLHigh0.0-0.45Sal[facility] City HospitalComment on above:Performed By: #### SCAN CBC, CMP ####[facility] [address] [place] [address] USAEosinophils/100 leukocytes in Blood by Automated countOrdered By: Fabiola Marinelli on 54-74-2470Ujeldqjphji/100 WBC (Bld)30.7 %Normal.Sal[facility] City HospitalComment on above:Performed By: #### SCAN CBC, CMP ####[place] [address] USAErythrocyte distribution width [Ratio] by Automated countOrdered By: Fabiola Yves on 48-96-2726Fbxrvecxeqi distribution width (RBC) [Ratio]14.8 %Exodhg01.9-15.3FPremier HealthComment on above: Performed By: #### SCAN CBC, CMP ####[place] [address] USAErythrocyte morphology finding [Identifier] in Blood Ordered By: Fabiola Marinelli on 90-72-5203CPK morphology finding Nom (Bld)N/AFPremier HealthErythrocytes [#/volume] in Blood by Automated count Ordered By: Fabiola Marinelli on 22-60-7332LUR (Bld) [#/Vol]3.12 10*6/uLLow3.60-5.00 [facility] City HospitalComment on above:Performed By: #### SCAN CBC, CMP ####[place] [address] [place] Glucose [Mass/volume] in Serum or PlasmaOrdered By: Fabiola Marinelli on 05-17-2025 Glucose [Mass/Vol]146 mg/aEZian16-457MpvctmlrrSalem City HospitalComment on above:Result Comment: Random Glucose Reference Range is dependent on time and content of last meal. Glucose of more than 200 mg/dL in a nonstressed, ambulatory subject supports the diagnosis of Diabetes Mellitus. ADA recommended reference rangePerformed By: #### SCAN CBC, CMP ####[place] [address] USAHematocrit [Volume Fraction] of Blood by Automated countOrdered By: Fabiola Marinelli on 37-11-5445Dzgulidabi (Bld) [Volume fraction]31.3 %Low34.0-46.4FPremier HealthComment on above: Performed By: #### SCAN CBC, CMP ####[place] [address] USAHemoglobin A1c/Hemoglobin.total in BloodOrdered By: Emely Pedersen on 21-16-2340OaD8p (Bld) [Mass fraction]5.7 %High4.3-5.6FPremier HealthComment on above:Result Comment: Increased risk for diabetes: 5.7 - 6.4 diabetes: >6.4 glycemic control for adults with diabetes: <7.0Performed By: #### A1C WTH eA, PT ####[place] [address] [place] [address] USAHemoglobin [Mass/volume] in BloodOrdered By: Fabiola Marinelli on 24-97-8432Ykkfirxmym (Bld) [Mass/Vol]10.5 g/dLLow11.8-15.4FPremier HealthComment on above:Performed By: #### SCAN CBC, CMP ####[place] [place] [address] USAINR in Platelet poor plasma by Coagulation assayOrdered By: Emely Pedersen on 05-17-2025 INR Coag (PPP) [Relative time]1.2 {INR}[facility] Comment on above:Result Comment: INR Therapeutic Range A) Pre- and Peroperative OAT started two weeks before surgery. NOT HIP SURGERY: 1.5 - 2.5 HIP SURGERY: 2 - 3 B) Primary and secondary prevention of venous THROMBOSIS: 2 - 3 C) Active venous thrombosis, pulmonary embolism and prevention of recurrent venous thromb osis: 2 - 3 D) Prevention of arterial thromboembolism including patients with mechanical heart valves: 3 - 4.5PERFORMED BY:[address] [place], [place] [phone] MEDICAL BARBIE BRUCE M.D.Performed By: #### A1C WT eA, PT ####[place] [address] [place] [address] USALeukocytes [#/volume] corrected for nucleated erythrocytes in Blood by Automated counOrdered By: Fabiola Marinelli on 65-65-2385ITG corrected for nucl RBC Auto (Bld) [#/Vol]2.2 10*3/uLLow 3.8-11.6FPremier HealthLeukocytes [#/volume] in Blood by Automated countOrdered By: Fabiola Marinelli on 25-53-6070WXF (Bld) [#/Vol]2.2 10*3/uL Low3.8-11.6FPremier HealthComment on above:Performed By: #### SCAN CBC, CMP ####[address] [address] USALymphocytes [#/volume] in Blood by Automated countOrdered By: Fabiola Yves on 03-90-5750Kbeinfkpqgp (Bld) [#/Vol]0.4 10*3/uLLow1.00-4.8Sal[facility] City HospitalComment on above:Performed By: #### SCAN CBC, CMP ####[place] [address] USALymphocytes/100 leukocytes in Blood by Automated countOrdered By: Fabiola Marinelli on 05-17-2025 Lymphocytes/100 WBC (Bld)19.3 %Normal.Sal[facility] City HospitalComment on above:Performed By: #### SCAN CBC, CMP ####[address] [address] [facility] MEXICOMCH [Entitic mass] by Automated countOrdered By: Fabiola Berumense on 16-85-8813LFM (RBC) [Entitic mass]33.7 ptRnkdfd32.7-34.3 [facility] City HospitalComment on above:Performed By: #### SCAN CBC, CMP ####[address] [address] [facility] MCHC Auto (RBC) [Mass/Vol]Ordered By: Fabiola Yves on 76-11-7957LYKT (RBC) [Mass/Vol]33.6 g/dL32.0-35.0Sal[facility] City HospitalMCV [Entitic volume] by Automated countOrdered By: Fabiola Marinelli on 27-14-1756KLE (RBC) [Entitic vol]100.5 cYDztz26-524AawpgyupgSalem City HospitalComment on above: Performed By: #### SCAN CBC, CMP ####[address] [address] USAMonocytes [#/volume] in Blood by Automated count Ordered By: Fabiola Marinelli on 57-23-0872Tmuynrjcz (Bld) [#/Vol]0.4 10*3/uLNormal 0.0-0.8Sal[facility] City HospitalComment on above:Performed By: #### SCAN CBC, CMP ####[facility] [address] [place] [address] USAMonocytes/100 leukocytes in Blood by Automated countOrdered By: Fabiola Marinelli on 41-89-1996Oewvtrspb/100 WBC (Bld)18.7 %Normal.[facility] Comment on above:Performed By: #### SCAN CBC, CMP ####[facility] [address] [place] [address] USANeutrophils [#/volume] in Blood by Automated countOrdered By: Fabiola Marinelli on 60-63-5733Kydzedngccl (Bld) [#/Vol]0.7 10*3/uLLow1.8-7.7FPremier HealthComment on above:Performed By: #### SCAN CBC, CMP ####[facility] [address] [place] [address] USANeutrophils/100 leukocytes in Blood by Automated countOrdered By: Fabiola Marinelli on 09-27-3595Iwcjdtbqomp/100 WBC (Bld)30.9 %Normal.[facility] City HospitalComment on above:Performed By: #### SCAN CBC, CMP ####[facility] [address] [place] [address] USANo Panel Information Ordered By: Fabiola Marinelli on 05-17-2025> 60.0 mL/MinSalem City Hospital57.77Salem City HospitalNucleated erythrocytes [Presence] in Blood by Automated countOrdered By: Fabiola Marinelli on 95-77-0072Etjytnfha RBC Auto Ql (Bld)0.1 /100{WBC}0-0.5FPremier HealthOvalocytes [Presence] in Blood by Light microscopyOrdered By: Fabiola Marinelli on 30-91-6184Emxdcvethk LM Ql (Bld)SlightSalem City HospitalPlatelet adequacy [Presence] in Blood by Light microscopyOrdered By: Fabiola Marinelli on 26-34-0996Xsjuhphrn LM Ql (Bld)DecreasedNormCherrington HospitalPlatelet mean volume [Entitic volume] in Blood by Automated countOrdered By: Fabiola Marinelli on 05-17-2025 Platelet mean volume (Bld) [Entitic vol]9.0 fLNormal6.3-10.7FPremier HealthComment on above:Performed By: #### SCAN CBC, CMP ####[place] [place] [address] USAPlatelet morphology finding [Identifier] in BloodOrdered By: Fabiola Marinelli on 82-69-0719Cosceltv morphology finding Nom (Bld)NormalNoOhioHealth Marion General Hospital Platelets [#/volume] in Blood by Automated countOrdered By: Fabiola Marinelli on 43-36-8326Wjrskdmuc (Bld) [#/Vol]55 10*3/fJZfb150-903JhupjvpjkSalem City HospitalComment on above:Performed By: #### SCAN CBC, CMP ####[address] [address] USAPoikilocytosis [Presence] in Blood by Light microscopyOrdered By: Fabiola Marinelli on 01-16-6865Efrkzvblkbkcwk LM Ql (Bld)SlightSalem City HospitalPotassium [Moles/volume] in Serum or PlasmaOrdered By: Fabiola Marinelli on 35-28-6768Nbfynhisb [Moles/Vol]4.3 mmol/L Normal3.5-5.1FPremier HealthComment on above:Performed By: #### SCAN CBC, CMP ####[address] [address] USAProtein [Mass/volume] in Serum or PlasmaOrdered By: Fabiola Marinelli on 95-13-8071Xczfxno [Mass/Vol]5.3 g/dLLow6.4-8.9[facility] Comment on above:Performed By: #### SCAN CBC, CMP ####[place] [place] [address] USAProthrombin time (PT)Ordered By: Emely Pedersen on 52-14-3544EC Coag (PPP) [Time]13.8 sHigh9.0-12.9Salem City HospitalComment on above:Result Comment: A hematocrit value greater than 55% may lead to inaccurate results in coagulation testing. Patients having hematocrit values >55% require a special collection tube for coagulation studies. Please contact the laboratory at [phone] for redraw instructions. Performed By: #### A1C WTH eA, PT ####[address] [address] USAScan and CBCon 16-95-9691Gxgs Corpuscular HGB Conc 33.6 g/vPKawvzr23.0-35.0The [facility] Physician GroupComment on above:Performed By: #### SCAN CBC, CMP ####[address] [address] USANRBC%0.1 /100{WBC}Normal0-0.5The [facility] Physician [facility] CenterComment on above:Performed By: #### SCAN CBC, CMP ####[address] [address] USAOvalocytesSlightShorePoint Health Port [place] Physician [facility] Medical CenterComment on above:Performed By: #### SCAN CBC, CMP ####[address] [address] [place] Platelet EstimateDecreasedNormUF Health Shands [facility]'s [facility] Physician [facility] Medical CenterComment on above:Performed By: #### SCAN CBC, CMP ####[address] [address] USAPlatelet MorphologyNormalNormUF Health Shands Children's Hospital Physician GroupComment on above:Result Comment: PERFORMED BY:[address] [place], [place] [phone] MEDICAL DIRECTORARIEL BRUCE M.D.Performed By: #### SCAN CBC, CMP ####[address] [address] USA PoikilocytosisSlightShorePoint Health Port Charlotte Physician GroupComment on above: Performed By: #### SCAN CBC, CMP ####[place] [address] USAWhite Blood Count2.2 [CFU]/mLLow3.8-11.6The [facility] Physician GroupComment on above:Performed By: #### SCAN CBC, CMP ####[place] [address] USASerum globulin measurement by calculation (mass/volume)Ordered By: Fabiola Marinelli on 02-14-0553Mhbgrzsn (S) [Mass/Vol]2.0 g/dLNoOhioHealth Marion General Hospital Comment on above:Performed By: #### SCAN CBC, CMP ####[place] [address] USASerum or plasma albumin/globulin mass ratioOrdered By: Fabiola Marinelli on 92-88-2588Brzdoex/Globulin [Mass ratio]1.7 {ratio}The Jewish HospitalComment on above:Performed By: #### SCAN CBC, CMP ####[place] [address] USASerum or plasma anion gap determinationOrdered By: Fabiola Marinelli on 92-19-6327Lmbhv gap [Moles/Vol]8.8 mmol/LNormal6.0-15.0Sal[facility] City HospitalComment on above:Performed By: #### SCAN CBC, CMP ####[place] [address] USASodium [Moles/volume] in Serum or PlasmaOrdered By: Fabiola Marinelli on 37-72-1124Hdvcdv [Moles/Vol]137 mmol/SCedxge863-364KgpvmdhfxSalem City HospitalComment on above:Performed By: #### SCAN CBC, CMP ####[place] [address] USAUrea nitrogen [Mass/volume] in Serum or Plasma Ordered By: Fabiola Marinelli on 66-38-1770Ypul nitrogen [Mass/Vol]23 mg/dLNormal7-25 [facility] HospitalComment on above:Performed By: #### SCAN CBC, CMP ####[address] [place] [address] USAX- ray reportOrdered By: Esteban Kumar on 96-71-3099Rhtyt [facility] Work Phone: XR chest 2V*on 78-29-2566CN chest 2V*NormalNorth Ridge Medical Center Physician GroupCNPNon 30-93-3457LFLSNdtbtwhkn (4CQ) MOJGAN PÉREZ ([id number]) 1955 F Date Time Provider Department 04/24/25 JUAN J MENDEZ 4CNicole During your visit today, we recorded the following information about you: Blair Masters 04/24/2025 11:03 AM Signed Mojgan is calling Juan J Mendez MD today Patient did not know she had an appt today. Patient was rescheduled for the next opening but will need a new order for ECHO as it will before the next opening. Please advise and call the patient back once ECHO has been placed. Orders Patient has been identified by name and birthdate. Duration of symptoms: N/A Person calling: self Call patient at: at home [phone] (home) [phone] (cell) Was an appointment scheduled: No Closing statement: Results or non-symptom based questions: Thank you for calling [facility], your call will be returned within the next business day. Tesha Giang 04/26/2025 11:20 AM Signed Called and spoke with patient 04/26/25 at 1117AM Patient ECHO has been scheduled for the same day as visit with Dr. Mendez on 08/17/25 Patient is aware Allergies As of Date: 04/24/2025 Noted Allergy Reaction ADHESIVE 05/15/2016 14 - Other: See Comments AMOXICILLIN 03/17/2006 7 - Swelling DOXYCYCLINE 05/23/2014 16 - Unknown ERYTHROMYCIN 10/31/2013 4 - Hives LATEX 04/13/2019 14 - Other: See Comments MOXIFLOXACIN 05/25/2019 4 - Hives PLATELETS 04/21/2019 14 - Other: See Comments Comments: Throat Swelling; likely angioedema TETRACYCLINE 04/13/2019 14 - Other: See Comments VIBRAMYCIN (DOXYCYCLINE CALCIUM) 03/17/2006 7 - Swelling VOLTAREN (DICLOFENAC SODIUM) 05/25/2019 4 - Hives Date Reviewed: 07/18/2024 Reviewed by: Shobha Maurice OCCA - Fully Assessed Reason for Visit: Orders [681] Prescriptions as of 04/26/2025 - Cholecalciferol, Vitamin D3, 125 mcg (5,000 unit) cap TAKE 1 CAPSULE BY MOUTH EVERY DAY FOR 90 DAYS - cyanocobalamin, vitamin B-12, 1,000 mcg cap 1,000 mcg. - NOVOLOG FLEXPEN U-100 INSULIN 100 unit/mL (3 mL) - LEVEMIR FLEXTOUCH U-100 INSULIN 100 unit/mL (3 mL) injection pen INJECT 22 UNITS SUBCUTANEOUSLY ONCE DAILY, INCREASE BY 2 UNITS FOR GLUCOSE LEVELS GREATER THAN 140 - semaglutide (OZEMPIC) 0.25 mg or 0.5 mg(2 mg/1.5 mL) pen injector Semaglutide (Ozempic) 0.25 mg or 0.5 mg(2 mg/1.5 mL) Pen Injector Active 0.5 MG SUBCUT every week September 24, 2020 12:34pm - potassium chloride SR (MICRO-K) 10 mEq CR capsule Take 10 mEq by mouth once daily. - gabapentin (NEURONTIN) 100 mg capsule TAKE ONE CAPSULE BY MOUTH THREE TIMES A DAY FOR 15 DAYS - ALBUTEROL INHALATION Inhale as instructed. - metFORMIN (GLUCOPHAGE) 500 mg tablet TAKE 1 TABLET BY MOUTH TWICE A DAY WITH A MEAL - carvedilol (COREG) 12.5 mg tablet Take 1 tablet by mouth twice daily with meals. - atorvastatin (LIPITOR) 80 mg tablet Take 1 tablet by mouth daily at bedtime. - lisinopril (ZESTRIL, PRINIVIL) 5 mg tablet Take 1 tablet by mouth once daily. - ADVAIR DISKUS 250-50 mcg/dose DsDv Inhale 1 Puff as instructed as needed. - OXYCODONE-ACETAMINOPHEN 10-325 mg tablet Take 1 tablet by mouth every 4 hours as needed. - OMEPRAZOLE 40 mg capsule Take 40 mg by mouth once daily. 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 IMMUNOGLOBULIN G583 mg/dL586 - 1602 mg/dLNOMS HealthcareIMMUNOGLOBULIN M, SERUM mg/dL26 - 217 mg/dLNOMS HealthcareComment on above:Result confirmed on concentration. Performed at: - [facility] [address] [id number] Aeronautical Design Engineer: Lang Knight PhD, Phone: [phone] NOMS HealthcareBasophils/100 leukocytes in Blood by Manual countOrdered By: Fabiola Marinelli on 23-02-3382Zuvtacqcb/100 WBC (Bld)1 %Normal0-2FPremier HealthComment on above:Performed By: #### CREAT, DIFF CBC ####[facility] [address] [place] [address] USACreatinineon 55-56-4396Hmugspuvby [Mass/Vol]0.92 mg/dLNormal0.60-1.20The [facility] Physician GroupComment on above:Performed By: #### CREAT, DIFF CBC ####[address] [place] [address] USACreatinine Clr Calc Pharmacy 60.26NormalThe Adventhealth Physician GroupComment on above:Result Comment: PERFORMED BY:[address] [place] [phone] MEDICAL BARBIE BRUCE M.D.Performed By: #### CREAT, DIFF CBC ####[address] [address] USAGFR/1.73 sq M.predicted MDRD (S/P/Bld) [Vol rate/Area]mL/min/{1.73_m2}NormalThe Adventhealth Physician GroupComment on above: Performed By: #### CREAT, DIFF CBC ####[address] [address] USACreatinine [Mass/Vol]on 02-73-0956Jdauiwzcpn (U) [Mass/Vol]0.92 mg/dL0.60 - 1.20 mg/dLNOMS HealthcareCREATININE CLR CALC PHARMACY 60.26NOMS HealthcareESTIMATED GFRmL/MinNOMS HealthcareNOMS HealthcareDiff and CBCon 50-01-0649Cvxnznlzuzx distribution width (RBC) [Ratio]15.2 %Normal 11.9-15.3The [facility] Physician GroupComment on above:Performed By: #### CREAT, DIFF CBC ####[address] [address] USAGiant Platelet Tally1 /100{WBC}NormalThe Adventhealth Physician GroupComment on above:Performed By: #### CREAT, DIFF CBC ####[address] [address] USAHematocrit (Bld) [Volume fraction]37.0 %Normal 34.0-46.4The [facility] Physician GroupComment on above:Performed By: #### CREAT, DIFF CBC ####[place] [address] USAHemoglobin (Bld) [Mass/Vol]12.4 g/zWAmqbto80.8-15.4The [facility] Physician GroupComment on above:Performed By: #### CREAT, DIFF CBC ####[address] Watson StreetMCH (RBC) [Entitic mass]34.3 ljTgebfq57.7-34.3The [facility] Physician GroupComment on above:Performed By: #### CREAT, DIFF CBC ####[place] [address] USAMCV (RBC) [Entitic vol]101.9 dQMwbf08-466Buj [facility] Physician GroupComment on above:Performed By: #### CREAT, DIFF CBC ####[place] [address] USAMean Corpuscular HGB Conc33.7 g/aWWabhsd15.0-35.0The [facility] Physician GroupComment on above:Performed By: #### CREAT, DIFF CBC ####[place] [address] USAMetamyelocytes1 %High0-0The [facility] Physician GroupComment on above:Performed By: #### CREAT, DIFF CBC ####[place] [address] USAOvalocytesSlight NormalThe [facility]health Physician GroupComment on above:Performed By: #### CREAT, DIFF CBC ####[place] [address] USAPlatelet EstimateDecreasedNormalNormalThe [facility]health Physician GroupComment on above:Performed By: #### CREAT, DIFF CBC ####[place] [address] USAPlatelet mean volume (Bld) [Entitic vol]8.6 fL Normal6.3-10.7The [facility] Physician GroupComment on above:Performed By: #### CREAT, DIFF CBC ####[address] [address] USAPlatelet MorphologyNormalNormalNormOrlando Health [facility] Physician [facility] Comment on above:Result Comment: PERFORMED BY:[address]PAT[address] [place], [place] [phone] MEDICAL DIRECTORARIEL BRUCE M.D.Performed By: #### CREAT, DIFF CBC ####[address] [address] USAPlatelets (Bld) [#/Vol]49 10*3/dUZxq177-776Dww [facility] Physician [facility] CenterComment on above: Performed By: #### CREAT, DIFF CBC ####[address] [address] USAPoikilocytosisSlightNormOrlando Health - [facility] Physician [facility] Mississippi Medical CenterComment on above:Performed By: #### CREAT, DIFF CBC ####[address] [address] USARBC (Bld) [#/Vol]3.63 10*6/uL Normal3.60-5.00The [facility] Physician [facility] Medical CenterComment on above:Performed By: #### CREAT, DIFF CBC ####[address] [address] USAWBC (Bld) [#/Vol]2.0 10*3/uLLow3.8-11.6The [facility] Physician [facility] Comment on above:Performed By: #### CREAT, DIFF CBC ####[address] [address] USAEosinophils/100 leukocytes in Blood by Manual countOrdered By: Fabiola Marinelli on 69-63-8062Xvasqkzeobb/100 WBC (Bld)10 %High1-3FPremier HealthComment on above:Performed By: #### CREAT, DIFF CBC ####[address] [address] USAGiant platelets/100 leukocytes [Ratio] in Blood by Manual countOrdered By: Fabiola Marinelli on 06-60-4150Vtogx platelets/100 WBC Manual cnt (Bld) [Ratio]1 /100{WBC}[facility] City HospitalImmunoglobulins A/G/M, Qn, Seron 66-06-7134Hiqmvxxphvoate A, Serum<5Wamvdf10-756Fgf [facility] Physician [facility] CenterComment on above:Result Comment: Result confirmed on concentration.Performed By: #### IMM OSCAR ####[facility] , Immunoglobulin G583 mg/fPZsnqvg936-7976Xxd [facility] Physician GroupComment on above:Performed By: #### IMM OSCAR ####[facility] ,Immunoglobulin M, Serum<8Lvkipf98-582Hdw [facility] Physician [facility] CenterComment on above:Result Comment: Result confirmed on concentration. Performed at: - [facility] [id number] Aeronautical Design Engineer: Lang Knight PhD, Phone: [phone] BY:[address]PATRICIA GOFFNORTH [place]IC[place], [place] [phone] MEDICAL DIRECTORARIEL BRUCE M.D.Performed By: #### IMM OSCAR ####[facility] ,Lymphocytes/100 leukocytes in Blood by Manual countOrdered By: Fabiola Marinelli on 21-21-0679Lsmpepermtn/100 WBC (Bld)23 % Bmtdgu51-68HcyhrolkiSalem City HospitalComment on above:Performed By: #### CREAT, DIFF CBC ####[facility] [place] [address] [place] [address] USAMR abdomen wo/w conon 76-08-6824ZH abdomen wo/w conNormalMississippi State HospitalMetamyelocytes/100 WBC Manual cnt (Bld)Ordered By: Fabiola Marinelli on 67-26-2344Dinxjxrwtxkvva/100 WBC (Bld)1 %High0-0Sal[facility] City HospitalMonocytes/100 leukocytes in Blood by Manual countOrdered By: Fabiola Marinelli on 39-81-6700Vmwitconc/100 WBC (Bld)14 %High2-11[facility] Comment on above:Performed By: #### CREAT, DIFF CBC ####[facility] [address] [place] [address] USASegmented neutrophils/100 leukocytes in Blood by Manual countOrdered By: Fabiola Berumense on 34-71-1227Ndmpyixbr neutrophils/100 WBC (Bld)52 %Eqqbbb51-47RxoeuixpgSalem City HospitalComment on above:Performed By: #### CREAT, DIFF CBC ####[facility] [address] [place] [address] USASerum or plasma IgA measurement (mass/volume)Ordered By: Fabiola Marinelli on 66-81-5374BkR [Mass/Vol]mg/yIUhu91-266 [facility] Health Instituteerum or plasma IgG measurement (mass/volume) Ordered By: Fabiola Marinelli on 13-75-7141ZkD [Mass/Vol]583 mg/kQWpx030-4510AbzudjoirRiverview Health Instituteerum or plasma IgM measurement (mass/volume)Ordered By: Fabiola Marinelli on 99-63-2932GsH [Mass/Vol]mg/wFPqz43-612CmmhiojcoSalem City HospitalLaboratory - Microbiology and Antimicrobial susceptibilityon 04-10-2025 SARS-CoV-2 (COVID-19) RNA JOHANN+probe Ql (Unsp spec)NegativeNOPR HealthcareNo Panel Informationon 20-41-6315Wniyexqhchberj and review of laboratory results NormalNOWright Memorial HospitalNOPR HealthcareUrinalysis macro (dipstick) panel (U)Ordered By: Polina Ferrari on 27-64-3669Uencobcdu, UANegativeNegative - 4(70) +++ mg/dL NOMS HealthcareBlood, UANegativeNegative - 50 Michael/mcLNOMS HealthcareClarity, UA ClearNOMS HealthcareColor, UAYellowNOMS HealthcareGlucose, UANegativeNegative - 2000(110) ++++ mg/dLNOPR HealthcareInterpretation and review of laboratory resultsAbnormalNOMS HealthcareKetones, UANegativeNegative - 160(16) ++++ mg/dL NOMS HealthcareLeukocytes, UATraceNegative - 500+++ Mahamed/mcLNOMS Healthcare Nitrite, UANegativeNegative - PositiveNOMS HealthcarepH, UA75 - 9[facility] Protein, UANegativeNegative - 2000(20) ++++ mg/dLNOPR HealthcareSpec Grav, UA 1.0051 - 1.03NOPR HealthcareUrobilinogen, UA0.20.2 - 12 mg/dLNOWright Memorial HospitalNOPR HealthcareComprehensive Metabolic Panelon 43-81-2331Gdxsgpd [Mass/Vol]3.6 g/dL Normal3.5-5.7The [facility] Physician GroupComment on above:Performed By: #### PATH SLIDE REV, SCAN CBC, CMP ####[address] [place] [address] USAAlbumin/Globulin [Mass ratio]1.6 {ratio}NormalThe [facility] Physician GroupComment on above:Performed By: #### PATH SLIDE REV, SCAN CBC, CMP ####[address] [address] USAALP [Catalytic activity/Vol]146 U/FMygs40-785Fhq [facility] Physician GroupComment on above:Performed By: #### PATH SLIDE REV, SCAN CBC, CMP ####[address] [place] [address] USAALT [Catalytic activity/Vol]19 U/LNormal7-52The [facility] Physician GroupComment on above:Performed By: #### PATH SLIDE REV, SCAN CBC, CMP ####[address] [address] USAAnion gap [Moles/Vol]9.3 mmol/LNormal6.0-15.0The [facility] Physician GroupComment on above:Performed By: #### PATH SLIDE REV, SCAN CBC, CMP ####[address] [address] USAAST [Catalytic activity/Vol]34 U/DKjvxzz91-38Jrr [facility] Physician GroupComment on above:Performed By: #### PATH SLIDE REV, SCAN CBC, CMP ####[address] [address] USABilirubin [Mass/Vol]1.0 mg/dLNormal0.3-1.0The [facility] Comment on above:Performed By: #### PATH SLIDE REV, SCAN CBC, CMP ####[address] [place] [address] USACalcium [Mass/Vol]8.7 mg/dLNormal8.6-10.3The [facility] Physician GroupComment on above:Performed By: #### PATH SLIDE REV, SCAN CBC, CMP ####[address] [place] [address] USAChloride [Moles/Vol]104 mmol/OXcfpul72-626Igp [facility] Physician GroupComment on above:Performed By: #### PATH SLIDE REV, SCAN CBC, CMP ####[address] [address] USACO2 [Moles/Vol]29.7 mmol/KUkqypm22.0-31.0The [facility] Comment on above:Performed By: #### PATH SLIDE REV, SCAN CBC, CMP ####[address] [address] USACreatinine [Mass/Vol] 1.04 mg/dLNormal0.60-1.20The [facility] Physician GroupComment on above:Performed By: #### PATH SLIDE REV, SCAN CBC, CMP ####[address] [address] USACreatinine Clr Calc Uhlyvhag45.87NormOrlando Health - Health [facility] Hospital Physician GroupComment on above:Result Comment: PERFORMED BY:[address] [place], [place] [phone] MEDICAL BARBIE BRUCE M.D.Performed By: #### PATH SLIDE REV, SCAN CBC, CMP ####[address] [address] USAEstimated GFR58.908 mL/MinNoAtrium Health Cabarrus Physician GroupComment on above:Performed By: #### PATH SLIDE REV, SCAN CBC, CMP ####[address] [address] USAGlobulin (S) [Mass/Vol]2.2 g/dLNoAtrium Health Cabarrus Physician GroupComment on above:Performed By: #### PATH SLIDE REV, SCAN CBC, CMP ####[facility] [place] [address] USAGlucose [Mass/Vol]116 mg/pFFlax53-989Syw [facility] Physician GroupComment on above:Result Comment: Random Glucose Reference Range is dependent on time and content of last meal. Glucose of more than 200 mg/dL in a nonstressed, ambulatory subject supports the diagnosis of Diabetes Mellitus. ADA recommended reference rangePerformed By: #### PATH SLIDE REV, SCAN CBC, CMP ####[place] [address] [place] Potassium [Moles/Vol]4.0 mmol/LNormal3.5-5.1The [facility] Physician GroupComment on above:Performed By: #### PATH SLIDE REV, SCAN CBC, CMP ####[place] [address] USAProtein [Mass/Vol]5.8 g/dLLow6.4-8.9The [facility] Physician GroupComment on above:Performed By: #### PATH SLIDE REV, SCAN CBC, CMP ####[place] [address] USASodium [Moles/Vol]139 mmol/VXeelta600-685Ysq [facility] Physician GroupComment on above:Performed By: #### PATH SLIDE REV, SCAN CBC, CMP ####[place] [address] USAUrea nitrogen [Mass/Vol]19 mg/dLNormal7-25The [facility] Comment on above:Performed By: #### PATH SLIDE REV, SCAN CBC, CMP ####[address] USAComprehensive metabolic panelon 97-74-2291Iysjgzp [Mass/Vol]3.6 g/dL3.5 - 5.7 g/dLNOMS HealthcareAlbumin/Globulin [Mass ratio]1.6 {ratio}NOMS HealthcareALP [Catalytic activity/Vol]146 U/LHigh34 - 104 U/LNOMS HealthcareALT [Catalytic activity/Vol] 19 U/L7 - 52 U/LNOMS HealthcareAnion gap [Moles/Vol]9.3 mmol/L6.0 - 15.0 meq/L NOMS HealthcareAST [Catalytic activity/Vol]34 U/L13 - 39 U/LNOMS Healthcare Bilirubin [Mass/Vol]1 mg/dL0.3 - 1.0 mg/dLNOMS HealthcareCalcium [Mass/Vol]8.7 mg/dL8.6 - 10.3 mg/dLNOPR HealthcareChloride [Moles/Vol]104 mmol/L98 - 107 mmol/LNOMS HealthcareCO2 [Moles/Vol]29.7 mmol/L21.0 - 31.0 mmol/LNOMS Healthcare Creatinine (U) [Mass/Vol]1.04 mg/dL0.60 - 1.20 mg/dLNOPR HealthcareCREATININE CLR CALC ZOPLUGMH73.87NOMS HealthcareGFR/1.73 sq M.predicted MDRD (S/P/Bld) [Vol rate/Area]58.908 mL/min/{1.73_m2}mL/MinNOPR HealthcareGlobulin (S) [Mass/Vol] 2.2 g/dLNOPR HealthcareGlucose [Mass/Vol]116 mg/pSAqfo64 - 100 mg/dLNOPR HealthcareComment on above:Random Glucose Reference Range is dependent on time and content of last meal. Glucose of more than 200 mg/dL in a nonstressed, ambulatory subject supports the diagnosis of Diabetes Mellitus. ADA recommended reference range Interpretation and review of laboratory resultsAbnormalNOPR HealthcarePotassium [Moles/Vol]4 mmol/L3.5 - 5.1 mmol/LNOMS HealthcareProtein [Mass/Vol]5.8 g/dLLow 6.4 - 8.9 g/dLNOPR HealthcareSodium [Moles/Vol]139 mmol/L136 - 145 mmol/LNOMS HealthcareUrea nitrogen [Mass/Vol]19 mg/dL7 - 25 mg/dLNOWright Memorial HospitalNOPR HealthcareLon 29-71-7895WBdwaghHbv [place] Physician [facility] CenterNo Panel Information Ordered By: Fabiola Marinelli on 57-59-0260Oiibniw path reviewSalem City HospitalPATHOLOGIST SLIDE REVIEW ([facility])on 62-68-4215HOYBAIPJADL SLIDE REVIEW Ordered Path ReviewNOAdventHealth DurandPathologist Slide Reviewon 90-41-0662Hfjrmzgdjyj Slide ReviewOrdered Path ReviewNoAtrium Health Cabarrus Physician GroupComment on above:Result Comment: PERFORMED BY:[address] [address] [place], [place] [phone] MEDICAL DIRECTORARIEL BRUCE M.D.Performed By: #### PATH SLIDE REV, SCAN CBC, CMP ####[address] [address] [facility] Polychromasia [Presence] in Blood by Light microscopyOrdered By: Fabiola Marinelli on 72-74-3037Lulhupwioeuft LM Ql (Bld)[facility] Medical Centercan and CBCon 06-97-1749Ipcsrykryzxq Ql (Bld)[facility] Physician [facility] Medical CenterComment on above:Performed By: #### PATH SLIDE REV, SCAN CBC, CMP ####[address] [address] [place] Basophils (Bld) [#/Vol]0.0 10*3/uLNormal0.0-0.2The [facility] Comment on above:Result Comment: PERFORMED BY:[address] [address] [place], [place] [phone] MEDICAL DIRECTORARIEL BRUCE M.D.Performed By: #### PATH SLIDE REV, SCAN CBC, CMP ####[address] [address] [facility] Basophils/100 WBC (Bld)0.7 %Normal.The [facility] Physician GroupComment on above:Performed By: #### PATH SLIDE REV, SCAN CBC, CMP ####[address] [address] USAEosinophils (Bld) [#/Vol]0.3 10*3/uLNormal0.0-0.45The [facility] Physician GroupComment on above:Performed By: #### PATH SLIDE REV, SCAN CBC, CMP ####[address] [address] USAEosinophils/100 WBC (Bld)13.0 %Normal.The [facility] Physician GroupComment on above:Performed By: #### PATH SLIDE REV, SCAN CBC, CMP ####[address] Erythrocyte distribution width (RBC) [Ratio]16.1 %High11.9-15.3The [facility] Physician GroupComment on above:Performed By: #### PATH SLIDE REV, SCAN CBC, CMP ####[address] Hematocrit (Bld) [Volume fraction]35.4 %Hzxsdy58.0-46.4The [facility] Physician GroupComment on above:Performed By: #### PATH SLIDE REV, SCAN CBC, CMP ####[address] Hemoglobin (Bld) [Mass/Vol]12.1 g/sIFoqqli65.8-15.4The [facility] Comment on above:Performed By: #### PATH SLIDE REV, SCAN CBC, CMP ####[place] [address] USALymphocytes (Bld) [#/Vol]0.4 10*3/uLLow1.00-4.8The [facility] Physician GroupComment on above: Performed By: #### PATH SLIDE REV, SCAN CBC, CMP ####[place] [address] USALymphocytes/100 WBC (Bld)19.9 %Normal. The [facility] Physician GroupComment on above:Performed By: #### PATH SLIDE REV, SCAN CBC, CMP ####[address] StreetMCH (RBC) [Entitic mass]34.1 bfQbsgnn12.7-34.3The [facility] Physician GroupComment on above:Performed By: #### PATH SLIDE REV, SCAN CBC, CMP ####[address] StreetMCV (RBC) [Entitic vol]99.9 yZUezqfj84-682Vdq [facility] Physician GroupComment on above:Performed By: #### PATH SLIDE REV, SCAN CBC, CMP ####[place] [address] USAMean Corpuscular HGB Conc34.1 g/cFFqrkhl83.0-35.0The [facility] Physician GroupComment on above:Performed By: #### PATH SLIDE REV, SCAN CBC, CMP ####[place] [address] USAMonocytes (Bld) [#/Vol]0.3 10*3/uLNormal0.0-0.8The [facility] Physician GroupComment on above:Performed By: #### PATH SLIDE REV, SCAN CBC, CMP ####[address] USAMonocytes/100 WBC (Bld)14.1 %Normal.The [facility] Comment on above:Performed By: #### PATH SLIDE REV, SCAN CBC, CMP ####[place] [address] USANeutrophils (Bld) [#/Vol]1.1 10*3/uLLow1.8-7.7The [facility] Physician GroupComment on above: Performed By: #### PATH SLIDE REV, SCAN CBC, CMP ####[place] [address] USANeutrophils/100 WBC (Bld)52.3 %Normal. The [facility] Physician GroupComment on above:Performed By: #### PATH SLIDE REV, SCAN CBC, CMP ####[address] USANRBC%0.1 /100{WBC}Normal0-0.5The [facility] Physician GroupComment on above:Performed By: #### PATH SLIDE REV, SCAN CBC, CMP ####[place] [address] USAOvalocytesModerateNoAtrium Health Cabarrus Physician GroupComment on above:Performed By: #### PATH SLIDE REV, SCAN CBC, CMP ####[address] USAPlatelet EstimateDecreasedLowNoAtrium Health Cabarrus Physician GroupComment on above:Performed By: #### PATH SLIDE REV, SCAN CBC, CMP ####[address] [address] USAPlatelet mean volume (Bld) [Entitic vol]7.7 fLNormal6.3-10.7The [facility] Physician GroupComment on above:Performed By: #### PATH SLIDE REV, SCAN CBC, CMP ####[address] [address] USAPlatelet MorphologyNormal NormalNormOrlando Health - Health [facility] Hospital Physician GroupComment on above:Result Comment: PERFORMED BY:[address] [place], [place] [phone] MEDICAL DIRECTORARIEL BRUCE M.D.Performed By: #### PATH SLIDE REV, SCAN CBC, CMP ####[address] [address] USAPlatelets (Bld) [#/Vol]50 10*3/kSEkv238-099Lnb [facility] Physician GroupComment on above:Performed By: #### PATH SLIDE REV, SCAN CBC, CMP ####[address] [address] USAPoikilocytosisModerateNormOrlando Health - [facility] Hospital Physician GroupComment on above:Performed By: #### PATH SLIDE REV, SCAN CBC, CMP ####[address] [address] USAPolychromasiaSlightNoAtrium Health Cabarrus Physician GroupComment on above:Performed By: #### PATH SLIDE REV, SCAN CBC, CMP ####[address] [address] USARBC (Bld) [#/Vol]3.55 10*6/uLLow3.60-5.00The [facility] Comment on above:Performed By: #### PATH SLIDE REV, SCAN CBC, CMP ####[address] [address] USAStomatocytesSlight NormalNorth Ridge Medical Center Physician [facility] Medical CenterComment on above:Performed By: #### PATH SLIDE REV, SCAN CBC, CMP ####[facility] [place] [address] USAWBC (Bld) [#/Vol]2.1 10*3/uLLow3.8-11.6The [facility] Physician GroupComment on above:Performed By: #### PATH SLIDE REV, SCAN CBC, CMP ####[facility] [place] [address] [place] Stomatocytes [Presence] in Blood by Light microscopyOrdered By: Fabiola Marinelli on 30-67-6304Fcjudpiriywk LM Ql (Bld)[facility] IMMUNOGLOBULINS A/G/M, QN, SERon 28-42-3528KHFRYVFKBIMDJE A, SERUMmg/dLLow87 - 352 mg/dLNOPR HealthcareComment on above:Result confirmed on concentration. IMMUNOGLOBULIN G895 mg/dL586 - 1602 mg/dLNOPR HealthcareIMMUNOGLOBULIN M, SERUM mg/dLLow26 - 217 mg/dLNOPR HealthcareComment on above:Result confirmed on concentration. Performed at: [employer] [id number] Aeronautical Design Engineer: Lang Knight PhD, Phone: [phone] Interpretation and review of laboratory resultsAbnoFormerly named [facility] CenterAFP Tumor Marker, Serumon 07-31-2026OBW Tumor Marker, Serum16.8 ng/mL High0.0-9.2The [facility] Physician GroupComment on above:Result Comment: [facility] Electrochemiluminescence Immunoassay (ECLIA) Values obtained with different assay methods or kits cannot be used interchangeably. Results cannot be interpreted as absolute evidence of the presence or absence of malignant disease. This test is not interpretable in females. Performed at: [employer] [id number] Aeronautical Design Engineer: Lang Knight PhD, Phone: [phone] BY:[address] [phone] MEDICAL DIRECTORTAVIA SCHMIDT M.D.Performed By: #### ENRY, SCAN CBC, FE and TIBC, CMP, PT ####[facility] [place] [address] [facility]#### AFPTM ####[facility] ,Alanine aminotransferase [Enzymatic activity/volume] in Serum or PlasmaOrdered By: Garcia Ly on 21-32-7953JWX [Catalytic activity/Vol]Alanine aminotransferase [Enzymatic activity/volume] in Serum or Plasma7-52Sal[facility] City HospitalAlbumin [Mass/volume] in Serum or Plasma by Bromocresol green (BCG) dye binding metho Ordered By: Garcia Ly on 44-98-5070Meusinr BCG dye [Mass/Vol]Albumin [Mass/volume] in Serum or Plasma by Bromocresol green (BCG) dye binding metho 3.5-5.7FPremier HealthAlkaline phosphatase [Enzymatic activity/volume] in Serum or PlasmaOrdered By: Garcia Ly on 89-92-7651EUX [Catalytic activity/Vol]Alkaline phosphatase [Enzymatic activity/volume] in Serum or WjnnnyAldf92-059JirgybvwbSalem City HospitalAspartate aminotransferase [Enzymatic activity/volume] in Serum or PlasmaOrdered By: Garcia Ly on 21-34-9687NBZ [Catalytic activity/Vol]Aspartate aminotransferase [Enzymatic activity/volume] in Serum or IzkvxlDjhb77-53JlfhcjwrbSalem City HospitalBasophils Auto (Bld) [#/Vol]Ordered By: Garcia Ly on 03-15-2025 Basophils (Bld) [#/Vol]Automated basophil count0.0-0.2FPremier HealthBasophils/100 WBC Auto (Bld)Ordered By: Garcia Ly on 03-15-2025 Basophils/100 WBC (Bld)Automated basophil %.[facility] Bilirubin.total [Mass/volume] in Serum or PlasmaOrdered By: Garcia Ly on 34-00-1351Hejsxruls [Mass/Vol]Bilirubin.total [Mass/volume] in Serum or Plasma 0.3-1.0Sal[facility] City HospitalCalcium [Mass/volume] in Serum or Plasma Ordered By: Garcia Ly on 31-09-6255Jskdpbb [Mass/Vol]Calcium [Mass/volume] in Serum or Plasma8.6-10.3FPremier HealthCarbon dioxide, total [Moles/volume] in Serum or PlasmaOrdered By: Garcia Sanchez on 49-55-1586BM3 [Moles/Vol]Carbon dioxide, total [Moles/volume] in Serum or Vaepev64.0-31.0 [facility] HospitalChloride [Moles/volume] in Serum or Plasma Ordered By: Garcia Sanchez on 86-59-1915Mirgkfxv [Moles/Vol]Chloride [Moles/volume] in Serum or Znazrh70-324FprztzkyrSalem City Hospital Comprehensive Metabolic Panelon 67-04-6187Xdqbbdy [Mass/Vol]3.6 g/dLNormal 3.5-5.7The [facility] Physician [facility] Medical CenterComment on above:Performed By: #### NERY, SCAN CBC, FE and TIBC, CMP, PT ####[address]#### AFPTM ####[facility] , Albumin/Globulin [Mass ratio]1.4 {ratio}NormalThe [facility]ician Group Comment on above:Performed By: #### NERY, SCAN CBC, FE and TIBC, CMP, PT ####[place] [address] [place]#### AFPTM ####[facility] ,ALP [Catalytic activity/Vol]171 U/JYytn96-432Bwl [facility] Physician [facility] Medical CenterComment on above:Performed By: #### NERY, SCAN CBC, FE and TIBC, CMP, PT ####[place] [address] [place]#### AFPTM ####[facility] ,ALT [Catalytic activity/Vol]28 U/L Normal7-52The [facility] Physician [facility] Medical CenterComment on above:Performed By: #### NERY, SCAN CBC, FE and TIBC, CMP, PT ####[place] [address] [place]#### AFPTM ####[facility] ,Anion gap [Moles/Vol]10.5 mmol/LNormal6.0-15.0The [facility] Physician GroupComment on above:Performed By: #### NERY, SCAN CBC, FE and TIBC, CMP, PT ####[address]#### AFPTM ####[facility] ,AST [Catalytic activity/Vol]45 U/SIaqp57-28Aqe [facility] Physician GroupComment on above:Performed By: #### NERY, SCAN CBC, FE and TIBC, CMP, PT ####[address]#### AFPTM ####[facility] ,Bilirubin [Mass/Vol]0.9 mg/dLNormal 0.3-1.0The [facility] Physician GroupComment on above:Performed By: #### NERY, SCAN CBC, FE and TIBC, CMP, PT ####[address]#### AFPTM ####[facility] ,Calcium [Mass/Vol]8.9 mg/dLNormal8.6-10.3The [facility] Physician GroupComment on above: Performed By: #### NERY, SCAN CBC, FE and TIBC, CMP, PT ####[address]#### AFPTM ####[facility] ,Chloride [Moles/Vol]104 mmol/KDtroxm98-089Ork [facility] Physician GroupComment on above:Performed By: #### NERY, SCAN CBC, FE and TIBC, CMP, PT ####[place] [address] [place]#### AFPTM ####[facility] ,CO2 [Moles/Vol]25.7 mmol/JIznmvs43.0-31.0The [facility] Physician GroupComment on above:Performed By: #### NERY, SCAN CBC, FE and TIBC, CMP, PT ####[place] [address] [place]#### AFPTM ####[facility] ,Creatinine [Mass/Vol]0.99 mg/dL Normal0.60-1.20ThSt. Luke's Fruitland Physician GroupComment on above:Performed By: #### NERY, SCAN CBC, FE and TIBC, CMP, PT ####[place] [address] [place]#### AFPTM ####[facility] ,Creatinine Clr Calc Nrmoztjz80.86NormOrlando Health - Health Central Hospital Physician GroupComment on above:Performed By: #### NERY, SCAN CBC, FE and TIBC, CMP, PT ####[address]#### AFPTM ####[facility] , GFR/1.73 sq M.predicted MDRD (S/P/Bld) [Vol rate/Area]mL/min/{1.73_m2}NormalThe [facility] Physician [facility] Medical CenterComment on above:Performed By: #### NERY, SCAN CBC, FE and TIBC, CMP, PT ####[address]#### AFPTM ####[facility] ,Globulin (S) [Mass/Vol]2.5 g/dL NormalNorth Ridge Medical Center Physician [facility] Medical CenterComment on above:Performed By: #### NERY, SCAN CBC, FE and TIBC, CMP, PT ####[place] [address] [place]#### AFPTM ####[facility] ,Glucose [Mass/Vol]130 mg/pXObhw39-048Gue [facility] Physician GroupComment on above: Result Comment: Random Glucose Reference Range is dependent on time and content of last meal. Glucose of more than 200 mg/dL in a nonstressed, ambulatory subject supports the diagnosis of Diabetes Mellitus. ADA recommended reference rangePerformed By: #### NERY, SCAN CBC, FE and TIBC, CMP, PT ####[place] [address] [place]#### AFPTM ####[facility] ,Potassium [Moles/Vol]4.2 mmol/LNormal3.5-5.1The [facility] Physician GroupComment on above:Performed By: #### NERY, SCAN CBC, FE and TIBC, CMP, PT ####[place] [address] [place]#### AFPTM ####[facility] ,Protein [Mass/Vol]6.1 g/dLLow6.4-8.9The [facility] Physician GroupComment on above:Performed By: #### NERY, SCAN CBC, FE and TIBC, CMP, PT ####[address]#### AFPTM ####[facility] ,Sodium [Moles/Vol]136 mmol/L Wzuijp115-341Oqq [facility] Physician GroupComment on above:Performed By: #### NERY, SCAN CBC, FE and TIBC, CMP, PT ####[place] [address] [place]#### AFPTM ####[facility] ,Urea nitrogen [Mass/Vol]21 mg/dLNormal7-25The [facility] Physician GroupComment on above: Performed By: #### NERY, SCAN CBC, FE and TIBC, CMP, PT ####[place] [address] [place]#### AFPTM ####[facility] ,Creatinine [Mass/volume] in Serum or PlasmaOrdered By: Garcia Ly on 29-61-1047Fepypquwgs [Mass/Vol]Creatinine [Mass/volume] in Serum or Plasma 0.60-1.20Sal[facility] City HospitalEosinophils Auto (Bld) [#/Vol]Ordered By: Garcia Ly on 03-77-1221Fvlqdqmpgwl (Bld) [#/Vol]Automated eosinophil count0.0-0.45Sal[facility] City HospitalEosinophils/100 WBC Auto (Bld) Ordered By: Garcia Sanchez on 81-74-2991Zfpnkypshkx/100 WBC (Bld)Automated eosinophil %.Sal[facility] City HospitalErythrocyte distribution width Auto (RBC) [Ratio]Ordered By: Garcia Sanchez on 20-78-2512Oubchicbiwn distribution width (RBC) [Ratio]Erythrocyte distribution width [Ratio] by Automated count High11.9-15.3FPremier HealthErythrocyte morphology finding [Identifier] in BloodOrdered By: Garcia Sanchez on 39-34-2297MUC morphology finding Nom (Bld)RBC morphologyNormalSalem City HospitalFerritin [Mass/volume] in Serum or PlasmaOrdered By: Fabiola Marinelli on 45-48-5450Idgzgrup [Mass/Vol]Ferritin [Mass/volume] in Serum or XtaiywBjeh79.0-306.8Salem City HospitalFerritin [Mass/Vol]454.3 ng/oQYuun32.0-306.8Salem City HospitalComment on above:Result Comment: PERFORMED BY:[address] [place], [place] [phone] MEDICAL DIRECTORTAVIA SCHMIDT M.D.Performed By: #### NERY, SCAN CBC, FE and TIBC, CMP, PT ####[facility] [address] [place], [place] [address]arleenMan[place] [id number] [facility]#### AFPTM ####[facility] ,Globulin Calc (S) [Mass/Vol] Ordered By: Garcia Sanchez on 70-83-4718Atndiggq (S) [Mass/Vol]Serum globulin measurement by calculation (mass/volume)Salem City HospitalGlucose [Mass/volume] in Serum or PlasmaOrdered By: Garcia Sanchez on 12-41-9188Hbujlix [Mass/Vol]Glucose [Mass/volume] in Serum or LbltcyMaef61-920IsawpgeavSalem City HospitalHematocrit Auto (Bld) [Volume fraction]Ordered By: Garcia Sanchez on 05-88-9024Nrobublwkh (Bld) [Volume fraction]Hematocrit [Volume Fraction] of Blood by Automated count34.0-46.4FPremier HealthHemoglobin [Mass/volume] in BloodOrdered By: Garcia Sanchez on 67-94-0813Bqpwjtsjat (Bld) [Mass/Vol]Hemoglobin [Mass/volume] in Blood11.8-15.4FPremier HealthINR in Platelet poor plasma by Coagulation assayOrdered By: Garcia Sanchez on 52-24-0932AEX Coag (PPP) [Relative time]INR in Platelet poor plasma by Coagulation assaySalem City HospitalImmunoglobulins A/G/M, Qn, Ser on 53-12-4048Duasqlzveoevuy A, Serum<0Qzr08-977Tsq [facility] Comment on above:Result Comment: Result confirmed on concentration.Performed By: #### IMM OSCAR ####[facility] ,Immunoglobulin G895 mg/zABvgcju444-2830 [facility] Physician GroupComment on above:Performed By: #### IMM OSCAR ####[facility] ,Immunoglobulin M, Serum<2Xpx00-535Ijs [facility] Physician GroupComment on above:Result Comment: Result confirmed on concentration. Performed at: [address] [id number] Aeronautical Design Engineer: Lang Knight PhD, Phone: [phone] BY:[place] [address] [place], [place] [phone] MEDICAL DIRECTORMOSRI SCHMIDT M.D. Performed By: #### IMM OSCAR ####[facility] ,Iron [Mass/volume] in Serum or PlasmaOrdered By: Fabiola Marinelli on 13-15-4609Zodd [Mass/Vol]Iron [Mass/volume] in Serum or Uhnsnp01-064VuexaiwszSalem City HospitalIron [Mass/Vol]102 ug/nZStympq51-472ByleemccxSalem City HospitalComment on above:Performed By: #### NERY, SCAN CBC, FE and TIBC, CMP, PT ####[facility] [place] [address] [place]#### AFPTM ####[facility] ,Iron and TIBC Profileon 03-15-2025% Iron Kppwfptljt90.0 %Cojrtp97-57Ial [facility] Physician GroupComment on above:Performed By: #### NERY, SCAN CBC, FE and TIBC, CMP, PT ####[facility] [place] [address] [place]#### AFPTM ####[facility] ,Total Iron Binding Zvcfqmox985 ug/dL Rmybsl360-548Qsq [facility] Physician GroupComment on above:Performed By: #### NERY, SCAN CBC, FE and TIBC, CMP, PT ####[facility] [place] [address] [place]#### AFPTM ####[facility] ,Leukocytes [#/volume] corrected for nucleated erythrocytes in Blood by Automated coun Ordered By: Garcia Ly on 77-06-9433TFJ corrected for nucl RBC Auto (Bld) [#/Vol]Leukocytes [#/volume] corrected for nucleated erythrocytes in Blood by Automated counLow3.8-11.6FPremier HealthLymphocytes Auto (Bld) [#/Vol]Ordered By: Garcia Ly on 25-06-2902Fyzqikodjpj (Bld) [#/Vol] Lymphocytes [#/volume] in Blood by Automated countLow1.00-4.8Salem City HospitalLymphocytes/100 WBC Auto (Bld)Ordered By: Garcia Ly on 52-76-5297Ddfjckeeopv/100 WBC (Bld)Lymphocytes/100 leukocytes in Blood by Automated count.[facility] Auto (RBC) [Entitic mass] Ordered By: Garcia Ly on 64-11-8108TUS (RBC) [Entitic mass]MCH [Entitic mass] by Automated count24.7-34.3FDayton Children's Hospital Auto (RBC) [Mass/Vol]Ordered By: Garcia Ly on 52-49-9528ZNVJ (RBC) [Mass/Vol]MCHC [Mass/volume] by Automated count32.0-35.0Salem City HospitalMCV Auto (RBC) [Entitic vol]Ordered By: Garcia Ly on 91-69-6746ZPN (RBC) [Entitic vol]MCV [Entitic volume] by Automated qhmyn63-382TrwwshanvSalem City HospitalMonocytes Auto (Bld) [#/Vol]Ordered By: Garcia Ly on 03-15-2025 Monocytes (Bld) [#/Vol]Automated blood monocyte count0.0-0.8Salem City HospitalMonocytes/100 WBC Auto (Bld)Ordered By: Garcia Ly on 03-15-2025 Monocytes/100 WBC (Bld)Automated monocyte %.[facility] Neutrophils Auto (Bld) [#/Vol]Ordered By: Garcia Ly on 81-86-1296Inasclwjnbr (Bld) [#/Vol]Neutrophils [#/volume] in Blood by Automated countLow1.8-7.7 Salem City HospitalNeutrophils/100 WBC Auto (Bld)Ordered By: Garcia Ly on 26-02-2021Jefcrqrqzfe/100 WBC (Bld)Automated neutrophil %. Salem City HospitalNo Panel InformationOrdered By: Garcia Ly on 03-15-2025> 60.0 mL/MinSalem City Hospital55.86Salem City HospitalNucleated erythrocytes [Presence] in Blood by Automated count Ordered By: Garcia Ly on 14-50-7090Ilqajsavb RBC Auto Ql (Bld)Nucleated erythrocytes [Presence] in Blood by Automated count0-0.5FPremier HealthPlatelet adequacy [Presence] in Blood by Light microscopyOrdered By: Garcia Ly on 12-08-8585Kjbwsbtsw LM Ql (Bld)Platelet adequacy [Presence] in Blood by Light microscopyLowNormalSalem City HospitalPlatelet mean volume Auto (Bld) [Entitic vol]Ordered By: Garcia Ly on 03-15-2025 Platelet mean volume (Bld) [Entitic vol]Platelet mean volume [Entitic volume] in Blood by Automated count6.3-10.7FPremier HealthPlatelet morphology finding [Identifier] in BloodOrdered By: Garcia Sanchez on 03-15-2025 Platelet morphology finding Nom (Bld)Platelet morphology finding [Identifier] in BloodNormalSalem City HospitalPlatelets Auto (Bld) [#/Vol]Ordered By: Garcia Sanchez on 49-25-8541Cqjxbndbl (Bld) [#/Vol]Platelets [#/volume] in Blood by Automated fqhhmRes753-352GelqohojeSalem City HospitalPotassium [Moles/volume] in Serum or PlasmaOrdered By: Garcia Sanchez on 44-09-8966Vusqigysr [Moles/Vol]Potassium [Moles/volume] in Serum or Plasma3.5-5.1FPremier HealthProtein [Mass/volume] in Serum or PlasmaOrdered By: Garcia Sanchez on 27-95-9112Lpokinz [Mass/Vol]Protein [Mass/volume] in Serum or PlasmaLow 6.4-8.9Sal[facility] City HospitalProthrombin Time INRon 25-28-8384PBS Coag (PPP) [Relative time]1.2 {INR}NormalThe [facility]health Physician GroupComment on above:Result Comment: INR Therapeutic Range A) Pre- and Peroperative OAT started two weeks before surgery. NOT HIP SURGERY: 1.5 - 2.5 HIP SURGERY: 2 - 3 B) Primary and secondary prevention of venous THROMBOSIS: 2 - 3 C) Active venous thrombosis, pulmonary embolism and prevention of recurrent venous thrombosis: 2 - 3 D) Prevention of arterial thromboembolism including patients with mechanical heart valves: 3 - 4.5PERFORMED BY:[place] [id number] [place]PATRICIA ORTIZT[place], [place] [phone] MEDICAL DIRECTORTAVIA HORAN M.D.Performed By: #### NERY, SCAN CBC, FE and TIBC, CMP, PT ####[address] [place] [address] [facility]#### AFPTM ####[facility] ,PT Coag (PPP) [Time]14.0 sHigh9.0-12.9The [facility] Physician GroupComment on above:Result Comment: A hematocrit value greater than 55% may lead to inaccurate results in coagulation testing. Patients having hematocrit values >55% require a special collection tube for coagulation studies. Please contact the laboratory at [phone] for redraw instructions. Performed By: #### NERY, SCAN CBC, FE and TIBC, CMP, PT ####[address]#### AFPTM ####[facility] ,Prothrombin time (PT)Ordered By: Garcia Sanchez on 90-54-8853HM Coag (PPP) [Time]Prothrombin time (PT)High9.0-12.9[facility] RBC Auto (Bld) [#/Vol]Ordered By: Garcia Sanchez on 45-81-5487BMT (Bld) [#/Vol] Erythrocytes [#/volume] in Blood by Automated count3.60-5.00Riverview Health Institutecan and CBCon 48-55-4892Axrjvtpmk (Bld) [#/Vol]0.0 10*3/uLNormal 0.0-0.2The [facility] Physician GroupComment on above:Result Comment: PERFORMED BY:[address] [place], [place] [phone] MEDICAL DIRECTORTAVIA SCHMIDT M.D.Performed By: #### NERY, SCAN CBC, FE and TIBC, CMP, PT ####[address]#### AFPTM ####[facility] ,Basophils/100 WBC (Bld)0.4 %Normal.The [facility] Physician GroupComment on above:Performed By: #### NERY, SCAN CBC, FE and TIBC, CMP, PT ####[address]#### AFPTM ####[facility] , Eosinophils (Bld) [#/Vol]0.3 10*3/uLNormal0.0-0.45The [facility] Comment on above:Performed By: #### NERY, SCAN CBC, FE and TIBC, CMP, PT ####[address]#### AFPTM ####[facility] ,Eosinophils/100 WBC (Bld)11.0 %Normal.The [facility] Physician GroupComment on above:Performed By: #### NERY, SCAN CBC, FE and TIBC, CMP, PT ####[address]#### AFPTM ####[facility] ,Erythrocyte distribution width (RBC) [Ratio]17.9 %High11.9-15.3The [facility] Physician GroupComment on above: Performed By: #### NERY, SCAN CBC, FE and TIBC, CMP, PT ####[address]#### AFPTM ####[facility] ,Hematocrit (Bld) [Volume fraction]36.4 %Fjacfr45.0-46.4The [facility] Physician GroupComment on above:Performed By: #### NERY, SCAN CBC, FE and TIBC, CMP, PT ####[address]#### AFPTM ####[facility] ,Hemoglobin (Bld) [Mass/Vol]12.4 g/kDIhgwia68.8-15.4The [facility] Physician GroupComment on above:Performed By: #### NERY, SCAN CBC, FE and TIBC, CMP, PT ####[place] [address] [place]#### AFPTM ####[facility] , Lymphocytes (Bld) [#/Vol]0.6 10*3/uLLow1.00-4.8The [facility] Comment on above:Performed By: #### NERY, SCAN CBC, FE and TIBC, CMP, PT ####[address]#### AFPTM ####[facility] ,Lymphocytes/100 WBC (Bld)22.0 %Normal.The [facility] Physician GroupComment on above:Performed By: #### NERY, SCAN CBC, FE and TIBC, CMP, PT ####[address]#### AFPTM ####[facility] ,MCH (RBC) [Entitic mass]33.6 pg Okgtay16.7-34.3The [facility] Physician GroupComment on above:Performed By: #### NERY, SCAN CBC, FE and TIBC, CMP, PT ####[address]#### AFPTM ####[facility] ,MCV (RBC) [Entitic vol]98.8 pLRsbyqb78-253Jbr [facility] Physician GroupComment on above: Performed By: #### NERY, SCAN CBC, FE and TIBC, CMP, PT ####[address]#### AFPTM ####[facility] ,Mean Corpuscular HGB Conc34.0 g/sMUoedvg77.0-35.0The [facility] Physician GroupComment on above:Performed By: #### NERY, SCAN CBC, FE and TIBC, CMP, PT ####[place] [address] [place]#### AFPTM ####[facility] ,Monocytes (Bld) [#/Vol]0.4 10*3/uLNormal 0.0-0.8The [facility] Physician GroupComment on above:Performed By: #### NERY, SCAN CBC, FE and TIBC, CMP, PT ####[place] [address] [place]#### AFPTM ####[facility] ,Monocytes/100 WBC (Bld)16.6 %Normal.The [facility] Physician GroupComment on above:Performed By: #### NERY, SCAN CBC, FE and TIBC, CMP, PT ####[address]#### AFPTM ####[facility] , Neutrophils (Bld) [#/Vol]1.3 10*3/uLLow1.8-7.7The [facility] Comment on above:Performed By: #### NERY, SCAN CBC, FE and TIBC, CMP, PT ####[address]#### AFPTM ####[facility] ,Neutrophils/100 WBC (Bld)50.0 %Normal.The [facility] Physician GroupComment on above:Performed By: #### NERY, SCAN CBC, FE and TIBC, CMP, PT ####[address]#### AFPTM ####[facility] ,NRBC%0.1 /100{WBC}Normal0-0.5The [facility] Physician GroupComment on above:Performed By: #### NERY, SCAN CBC, FE and TIBC, CMP, PT ####[address]#### AFPTM ####[facility] ,Platelet EstimateDecreasedLow NormalThe [facility] Physician GroupComment on above:Performed By: #### NERY, SCAN CBC, FE and TIBC, CMP, PT ####[place] [address] [place]#### AFPTM ####[facility] ,Platelet mean volume (Bld) [Entitic vol]8.8 fLNormal6.3-10.7The [facility] Comment on above:Performed By: #### NERY, SCAN CBC, FE and TIBC, CMP, PT ####[address]#### AFPTM ####[facility] ,Platelet MorphologyNormalNormalNormOrlando Health - Health Central Hospital Physician GroupComment on above:Result Comment: PERFORMED BY:[address] [place], [place] [phone] MEDICAL DIRECTORTAVIA SCHMIDT M.D.Performed By: #### NERY, SCAN CBC, FE and TIBC, CMP, PT ####[address]#### AFPTM ####[facility] ,Platelets (Bld) [#/Vol]46 10*3/uL Rwc848-102Ktj [facility] Physician GroupComment on above:Performed By: #### NERY, SCAN CBC, FE and TIBC, CMP, PT ####[address]#### AFPTM ####[facility] ,RBC (Bld) [#/Vol]3.68 10*6/uLNormal3.60-5.00The [facility] Physician GroupComment on above: Performed By: #### NERY, SCAN CBC, FE and TIBC, CMP, PT ####[address]#### AFPTM ####[facility] ,RBC morphology finding Nom (Bld)NormalNormalNormOrlando Health - [facility] Hospital Physician GroupComment on above:Performed By: #### NERY, SCAN CBC, FE and TIBC, CMP, PT ####[address]#### AFPTM ####[facility] ,WBC (Bld) [#/Vol]2.5 10*3/uLLow3.8-11.6 The [facility] Physician GroupComment on above:Performed By: #### NERY, SCAN CBC, FE and TIBC, CMP, PT ####[facility] [address] [place] [id number] [facility]#### AFPTM ####[facility] ,Serum or plasma albumin/globulin mass ratioOrdered By: Garcia Sanchez on 03-15-2025 Albumin/Globulin [Mass ratio]Serum or plasma albumin/globulin mass ratio [facility] Instituteerum or plasma zctla-6-aumekllrgnh tumor marker measurement (mass/volume)Ordered By: Garcia Sanchez on 11-58-2650KKG.tumor marker [Mass/Vol]16.8 ng/mLHigh0.0-9.2FSouthview Medical Centererum or plasma anion gap determinationOrdered By: Garcia Sanchez on 30-00-2230Ymwwv gap [Moles/Vol]Serum or plasma anion gap determination6.0-15.0Riverview Health Instituteerum or plasma iron binding capacity measurement (mass/volume) Ordered By: Fabiola Marinelli on 14-53-0455Zdzv binding capacity [Mass/Vol]Iron binding capacity [Mass/volume] in Serum or Ijvsbx816-956MkozekwkqSalem City HospitalIron binding capacity [Mass/Vol]276 ug/aW932-647ZyuojtimmRiverview Health Instituteerum or plasma iron saturation measurement (mass fraction)Ordered By: Fabiola Marinelli on 16-01-0352Ltln saturation [Mass fraction]Iron saturation [Mass Fraction] in Serum or Xyqxyf09-78EeptgxxxpSalem City HospitalIron saturation [Mass fraction]37.0 %20-50Riverview Health Instituteodium [Moles/volume] in Serum or PlasmaOrdered By: Garcia Sanchez on 51-68-0913Bypivs [Moles/Vol]Sodium [Moles/volume] in Serum or Wqxvds944-850UvrpynlozSalem City HospitalTransferrin [Mass/volume] in Serum or PlasmaOrdered By: Fabiola Marinelli on 69-34-2404Cxyowytbhrz [Mass/Vol]Transferrin [Mass/volume] in Serum or Plasma Lqx858-111ItmqabqxhSalem City HospitalTransferrin [Mass/Vol]197 mg/dLLow 203-362Salem City HospitalComment on above:Performed By: #### NERY, SCAN CBC, FE and TIBC, CMP, PT ####[facility] [address]#### AFPTM ####[facility] ,Urea nitrogen [Mass/volume] in Serum or PlasmaOrdered By: Garcia Sanchez on 29-88-5807Lhcl nitrogen [Mass/Vol]Urea nitrogen [Mass/volume] in Serum or Plasma7-Salem City HospitalWBC Auto (Bld) [#/Vol]Ordered By: Garcia Sanchez on 46-53-2218PZU (Bld) [#/Vol]Leukocytes [#/volume] in Blood by Automated countLow 3.8-11.6FPremier HealthNo Panel Informationon 03-14-2025 ACINETOBACTER NHMWDNEL1YPDM HealthcareACINETOBACTER BAUMANIINot detectedNOMS HealthcareCANDIDA ALBICANS, PARAPSILOSIS, EKTLZTYNIV2IOUP HealthcareCANDIDA ALBICANS, PARAPSILOSIS, TROPICALISNot detectedNOMS HealthcareCANDIDA GLABRATA0 NOMS HealthcareCANDIDA GLABRATANot detectedNOMS HealthcareCANDIDA QBTFOK6UBFL HealthcareCANDIDA KRUSEINot detectedNOMS HealthcareCITROBACTER YOEPCOHQ2BJRR HealthcareCITROBACTER FREUNDIINot detectedNOMS HealthcareCTX-M1 (15), M2 (2), M9 (9), M8-25 GMHWUU10.682AbnormalNOMS HealthcareCTX-M1 (15), M2 (2), M9 (9), M8- 25 GROUPSDetectedAbnormalNOMS HealthcareDFR (A1, A5), SUL (1,2)25.954Abnormal NOMS HealthcareDFR (A1, A5), SUL (1,2)DetectedAbnormalNOMS Healthcare ENTEROBACTER AEROGENES, NGGISPY7MBND HealthcareENTEROBACTER AEROGENES, CLOACAE Not detectedNOMS HealthcareENTEROCOCCUS FAECALIS, EAKYIRL4PYMO Healthcare ENTEROCOCCUS FAECALIS, FAECIUMNot detectedNOMS HealthcareESCHERICHIA CCJB9IPVY HealthcareESCHERICHIA COLINot detectedNOMS HealthcareInterpretation and review of laboratory resultsAbnormalNOMS HealthcareKLEBSIELLA PNEUMONIAE, PKAFRGD05.511 AbnormalNOMS HealthcareKLEBSIELLA PNEUMONIAE, OXYTOCADetectedAbnormalNOMS HealthcareMORGANELLA BBAUXNEQ4EVBZ HealthcareMORGANELLA MORGANIINot detectedNOMS HealthcarePROTEUS MIRABILIS, SMIPBJBZ3BERG HealthcarePROTEUS MIRABILIS, VULGARISNot detectedNOMS HealthcarePSEUDOMONAS SBDLXDQLKE4SUKC Healthcare PSEUDOMONAS AERUGINOSANot detectedNOMS HealthcareQNR A1, A2, B219.752Abnormal NOMS HealthcareQNR A1, A2, V9FmcihriiUyqqphjoBBMZ HealthcareSERRATIA MARCESCENS0 NOMS HealthcareSERRATIA MARCESCENSNot detectedNOMS HealthcareSHV, [facility] GROUPS 20.799AbnormalNOMS HealthcareSHV, [facility] GROUPSDetectedAbnormalNOMS Healthcare STAPHYLOCOCCUS XIKQDG3FJTI HealthcareSTAPHYLOCOCCUS AUREUSNot detectedNOMS HealthcareSTAPHYLOCOCCUS EPIDERMIDIS, HAEMOLYTICUS, LUGDUNENSIS, SAPROPHYTICUS (IDMTY8CLFD HealthcareSTAPHYLOCOCCUS EPIDERMIDIS, HAEMOLYTICUS, LUGDUNENSIS, SAPROPHYTICUS (URINANot detectedNOMS HealthcareSTREPTOCOCCUS AGALACTIAE (GROUP B STREP)0NOMS HealthcareSTREPTOCOCCUS AGALACTIAE (GROUP B STREP)Not detectedNOMS HealthcareSTREPTOCOCCUS PYOGENES (GROUP A STREP)0NOMS HealthcareSTREPTOCOCCUS PYOGENES (GROUP A STREP)Not detectedNOMS HealthcareNOMS HealthcareLaboratory - Chemistry and Chemistry - challengeon 50-87-4308Aqpohpyqx Ql (U)NegativeNegative NOMS HealthcareGlucose [Mass/Vol]NegativeNegativeNOMS HealthcareKetones Ql (U) NegativeNegativeNOMS HealthcarepH (U)6 [pH]5.0 - 6.0NOMS HealthcareSpecific gravity (U) [Rel density]1.0151.001 - 1.035NOMS HealthcareUrobilinogen (U) [Mass/Vol]0.2 mg/dL0.2 - 1.0NOMS HealthcareLaboratory - Hematology and Cell countson 00-32-6351Samkleiqhu Ql (U)3+NegativeNOMS HealthcareLaboratory - Urinalysison 60-44-3486Wwtvqqp Ql (U)NegativeNegativeNOMS HealthcareProtein Ql (U)traceNegativeNOMS HealthcareNo Panel Informationon 55-08-5137Otlmfuelnrkrct and review of laboratory resultsAbnormalNOMS HealthcareLEUKOCYTES3+NegativeNOMS HealthcareNOMS HealthcareComprehensive Metabolic Panelon 16-78-3290Ffelnhi [Mass/Vol]3.7 g/dLNormal3.5-5.7The [facility] Physician GroupComment on above: Performed By: #### CMP ####[address] [address] USAAlbumin/Globulin [Mass ratio]1.9 {ratio}NormalThe [facility] Physician GroupComment on above:Performed By: #### CMP ####[address] [address] USAALP [Catalytic activity/Vol]134 U/ZTtmx20-409Swj [facility] Physician GroupComment on above: Performed By: #### CMP ####[address] [address] USAALT [Catalytic activity/Vol]33 U/LNormal7-52The [facility] Physician GroupComment on above:Performed By: #### CMP ####[address] [address] USAAnion gap [Moles/Vol] 8.9 mmol/LNormal6.0-15.0The [facility] Physician GroupComment on above:Performed By: #### CMP ####[address] [address] USAAST [Catalytic activity/Vol]47 U/CYybo75-34Ftu [facility] Physician GroupComment on above:Performed By: #### CMP ####[address] [address] USABilirubin [Mass/Vol]1.0 mg/dLNormal 0.3-1.0The [facility] Physician GroupComment on above:Performed By: #### CMP ####[address] [address] USACalcium [Mass/Vol]8.7 mg/dLNormal8.6-10.3The [facility] Physician GroupComment on above: Performed By: #### CMP ####[facility] [place] [address] USAChloride [Moles/Vol]103 mmol/NVzdtcf50-482Mon [facility] Physician GroupComment on above:Performed By: #### CMP ####[place] [place] [address] USACO2 [Moles/Vol]28.3 mmol/YDvtiss97.0-31.0The [facility] Physician GroupComment on above:Performed By: #### CMP ####[address] [address] USACreatinine [Mass/Vol]0.89 mg/dLNormal0.60-1.20The [facility] Comment on above:Performed By: #### CMP ####[address] [address] USACreatinine Clr Calc Mwgpisvc12.03NormOrlando Health - Health Central Hospital Physician [facility] Medical CenterComment on above:Result Comment: PERFORMED BY:[address] TSERINGRobertoErnaTOMALES, [place] [phone] MEDICAL DIRECTORTAVIA SCHMIDT M.D.Performed By: #### CMP ####[address] [address] USAGFR/1.73 sq M.predicted MDRD (S/P/Bld) [Vol rate/Area]mL/min/{1.73_m2}NormalThe [facility] Physician [facility] CenterComment on above:Performed By: #### CMP ####[address] [address] USAGlobulin (S) [Mass/Vol]2.0 g/dLNormOrlando Health [facility] Hospital Physician [facility] CenterComment on above:Performed By: #### CMP ####[address] [address] USAGlucose [Mass/Vol]151 mg/wXEtox06-521Kti [facility] Physician GroupComment on above: Result Comment: Random Glucose Reference Range is dependent on time and content of last meal. Glucose of more than 200 mg/dL in a nonstressed, ambulatory subject supports the diagnosis of Diabetes Mellitus. ADA recommended reference rangePerformed By: #### CMP ####[place] [address] [place] [address] USAPotassium [Moles/Vol]4.2 mmol/LNormal3.5-5.1The [facility] Physician GroupComment on above:Performed By: #### CMP ####[place] [place] [address] USAProtein [Mass/Vol]5.7 g/dLLow6.4-8.9The [facility] Physician GroupComment on above:Performed By: #### CMP ####[address] Sodium [Moles/Vol]136 mmol/OBqgblh427-075Kur [facility] Physician GroupComment on above:Performed By: #### CMP ####[place] [address] USAUrea nitrogen [Mass/Vol]19 mg/dLNormal7-25The [facility] Physician GroupComment on above:Performed By: #### CMP ####[place] [address] USAComprehensive metabolic panelon 49-12-1680Hwkejhq [Mass/Vol]3.7 g/dL3.5 - 5.7 g/dLNOMS HealthcareAlbumin/Globulin [Mass ratio]1.9 {ratio}NOMS HealthcareALP [Catalytic activity/Vol]134 U/LHigh34 - 104 U/LNOMS HealthcareALT [Catalytic activity/Vol] 33 U/L7 - 52 U/LNOMS HealthcareAnion gap [Moles/Vol]8.9 mmol/L6.0 - 15.0 meq/L NOMS HealthcareAST [Catalytic activity/Vol]47 U/LHigh13 - 39 U/LNOMS Healthcare Bilirubin [Mass/Vol]1 mg/dL0.3 - 1.0 mg/dLNOMS HealthcareCalcium [Mass/Vol]8.7 mg/dL8.6 - 10.3 mg/dLNOMS HealthcareChloride [Moles/Vol]103 mmol/L98 - 107 mmol/LNOMS HealthcareCO2 [Moles/Vol]28.3 mmol/L21.0 - 31.0 mmol/LNOMS Healthcare Creatinine (U) [Mass/Vol]0.89 mg/dL0.60 - 1.20 mg/dLNOWright Memorial HospitalCREATININE CLR CALC UVSMSPOF13.03NOWright Memorial HospitalESTIMATED GFRmL/MinNOPR HealthcareGlobulin (S) [Mass/Vol]2 g/dLNOPR HealthcareGlucose [Mass/Vol]151 mg/fQOlkf20 - 100 mg/dL [facility] HealthcareComment on above:Random Glucose Reference Range is dependent on time and content of last meal. Glucose of more than 200 mg/dL in a nonstressed, ambulatory subject supports the diagnosis of Diabetes Mellitus. ADA recommended reference range Interpretation and review of laboratory resultsAbnormalNOPR HealthcarePotassium [Moles/Vol]4.2 mmol/L3.5 - 5.1 mmol/LNOMS HealthcareProtein [Mass/Vol]5.7 g/dL Low6.4 - 8.9 g/dLNOPR HealthcareSodium [Moles/Vol]136 mmol/L136 - 145 mmol/LNOMS HealthcareUrea nitrogen [Mass/Vol]19 mg/dL7 - 25 mg/dLNOWright Memorial HospitalNOPR HealthcareScan and CBCon 77-04-8959Xszkeavgs (Bld) [#/Vol]0.0 10*3/uLNormal 0.0-0.2The [facility] Physician GroupComment on above:Performed By: #### SCAN CBC ####[place] [address] [place] Basophils/100 WBC (Bld)0.4 %Normal.The [facility] Physician GroupComment on above:Performed By: #### SCAN CBC ####[facility] [place] [address] USAEosinophils (Bld) [#/Vol]0.0 10*3/uLNormal0.0-0.45 The [facility] Physician GroupComment on above:Performed By: #### SCAN CBC ####[place] [id number] [place] Eosinophils/100 WBC (Bld)0.2 %Normal.The [facility] Physician GroupComment on above:Performed By: #### SCAN CBC ####[address] [address] USAErythrocyte distribution width (RBC) [Ratio]19.7 % High11.9-15.3The [facility] Physician GroupComment on above:Performed By: #### SCAN CBC ####[place] [address] [place]Hematocrit (Bld) [Volume fraction]36.4 %Pwnbop72.0-46.4The [facility] Physician GroupComment on above:Performed By: #### SCAN CBC ####[address] [address] [address] USAHemoglobin (Bld) [Mass/Vol]12.2 g/cFDpqetc38.8-15.4The [facility] Physician GroupComment on above: Performed By: #### SCAN CBC ####[address] [address] USALymphocytes (Bld) [#/Vol]0.4 10*3/uLLow1.00-4.8The [facility] Physician GroupComment on above:Performed By: #### SCAN CBC ####[place] [address] [place] Lymphocytes/100 WBC (Bld)17.3 %Normal.The [facility] Physician GroupComment on above:Performed By: #### SCAN CBC ####[address] [address] USAMCH (RBC) [Entitic mass]33.3 lhHyvlrx75.7-34.3The [facility] Physician GroupComment on above:Performed By: #### SCAN CBC ####[address] [address] USAMCV (RBC) [Entitic vol]98.7 tELghhht09-887Xae [facility] Physician GroupComment on above:Performed By: #### SCAN CBC ####[place] [address] USAMean Corpuscular HGB Conc33.7 g/qSKxoqrp47.0-35.0The [facility] Physician GroupComment on above:Performed By: #### SCAN CBC ####[address] [address] [place] Monocytes (Bld) [#/Vol]0.4 10*3/uLNormal0.0-0.8The [facility]ician [facility] Comment on above:Performed By: #### SCAN CBC ####[address] [address] USAMonocytes/100 WBC (Bld)18.1 %Normal. The [facility] Physician GroupComment on above:Performed By: #### SCAN CBC ####[address] [address] [place] Neutrophils (Bld) [#/Vol]1.6 10*3/uLLow1.8-7.7The [facility] Physician [facility] Comment on above:Performed By: #### SCAN CBC ####[address] [address] USANeutrophils/100 WBC (Bld)64.0 %Normal. The [facility] Physician GroupComment on above:Performed By: #### SCAN CBC ####[address] [address] USANRBC% 0.1 /100{WBC}Normal0-0.5The [facility] Physician GroupComment on above:Performed By: #### SCAN CBC ####[address] [address] USAPlatelet EstimateDecreasedNormalNormOrlando Health [facility] Physician [facility] Comment on above:Performed By: #### SCAN CBC ####[address] [address] USAPlatelet mean volume (Bld) [Entitic vol]8.0 fLNormal6.3-10.7The [facility] Physician GroupComment on above:Performed By: #### SCAN CBC ####[address] [address] USAPlatelet MorphologyNormalNormalNormOrlando [facility] Physician [facility] Comment on above:Result Comment: PERFORMED BY:[address] [place] [id number] MEDICAL DIRECTORTAVIA SCHMIDT M.D.Performed By: #### SCAN CBC ####[address] [address] USAPlatelets (Bld) [#/Vol]51 10*3/zKYft985-536Fpd [facility] Physician GroupComment on above: Performed By: #### SCAN CBC ####[place] [address] USARBC (Bld) [#/Vol]3.68 10*6/uLNormal3.60-5.00The [facility] Physician GroupComment on above:Performed By: #### SCAN CBC ####[place] [address] USARBC morphology finding Nom (Bld)NormalNormalNormalThe [facility] Comment on above:Performed By: #### SCAN CBC ####[place] [address] USAWBC (Bld) [#/Vol]2.4 10*3/uLLow 3.8-11.6The [facility] Physician GroupComment on above:Performed By: #### SCAN CBC ####[place] [address] [place] Anisocytosis LM Ql (Bld)Ordered By: Fabiola Marinelli on 37-50-5137Demhxyntvdiv Ql (Bld) Anisocytosis [Presence] in Blood by Light microscopySalem City HospitalBasophils/100 WBC Manual cnt (Bld)Ordered By: Fabiola Marinelli on 02-15-2025 Basophils/100 WBC (Bld)Basophils/100 leukocytes in Blood by Manual count0-2 [facility] City HospitalComprehensive Metabolic Panelon 02-15-2025 Albumin [Mass/Vol]3.5 g/dLNormal3.5-5.7The [facility] Physician GroupComment on above:Performed By: #### CMP, DIFF CBC ####[place] [address] USAAlbumin/Globulin [Mass ratio]1.4 {ratio}Normal The [facility] Physician GroupComment on above:Performed By: #### CMP, DIFF CBC ####[place] [address] [place] [address] USAALP [Catalytic activity/Vol]104 U/IAkavdl19-822Lup [facility] Physician GroupComment on above:Performed By: #### CMP, DIFF CBC ####[address] [address] USAALT [Catalytic activity/Vol]24 U/LNormal7-52 The [facility] Physician GroupComment on above:Performed By: #### CMP, DIFF CBC ####[address] [address] USAAnion gap [Moles/Vol]7.9 mmol/LNormal6.0-15.0The [facility] Physician GroupComment on above:Performed By: #### CMP, DIFF CBC ####[place] [address] USAAST [Catalytic activity/Vol]38 U/ETybiig46-66 The [facility] Physician GroupComment on above:Performed By: #### CMP, DIFF CBC ####[address] [address] [place] Bilirubin [Mass/Vol]0.9 mg/dLNormal0.3-1.0The [facility] Physician GroupComment on above:Performed By: #### CMP, DIFF CBC ####[address] [address] USACalcium [Mass/Vol]8.7 mg/dLNormal8.6-10.3The [facility] Physician GroupComment on above:Performed By: #### CMP, DIFF CBC ####[address] [address] [place] Chloride [Moles/Vol]108 mmol/TKaed81-964Shy [facility] Physician GroupComment on above:Performed By: #### CMP, DIFF CBC ####[address] [address] USACO2 [Moles/Vol]28.3 mmol/PCxkfsn01.0-31.0The [facility] Physician GroupComment on above:Performed By: #### CMP, DIFF CBC ####[address] [address] [facility] Creatinine [Mass/Vol]0.92 mg/dLNormal0.60-1.20The [facility] Comment on above:Performed By: #### CMP, DIFF CBC ####[address] [address] USACreatinine Clr Calc Mujlfsrk17.09 NormalNorth Ridge Medical Center Physician GroupComment on above:Result Comment: PERFORMED BY:[address] [phone] MEDICAL DIRECTORTAVIA SCHMIDT M.D.Performed By: #### CMP, DIFF CBC ####[address] [address] USAGFR/1.73 sq M.predicted MDRD (S/P/Bld) [Vol rate/Area]mL/min/{1.73_m2} NormalThe [facility] Physician GroupComment on above:Performed By: #### CMP, DIFF CBC ####[address] [address] [place] Globulin (S) [Mass/Vol]2.5 g/dLNormalThe [facility] Physician GroupComment on above:Performed By: #### CMP, DIFF CBC ####[address] [address] USAGlucose [Mass/Vol]111 mg/vDKltz75-657Qjx [facility] Physician GroupComment on above:Result Comment: Random Glucose Reference Range is dependent on time and content of last meal. Glucose of more than 200 mg/dL in a nonstressed, ambulatory subject supports the diagnosis of Diabetes Mellitus. ADA recommended reference rangePerformed By: #### CMP, DIFF CBC ####[address] [address] [facility] Potassium [Moles/Vol]4.2 mmol/LNormal3.5-5.1The [facility] Physician GroupComment on above:Performed By: #### CMP, DIFF CBC ####[facility] [id number] [place] [address] USAProtein [Mass/Vol]6.0 g/dLLow6.4-8.9 The [facility] Physician GroupComment on above:Performed By: #### CMP, DIFF CBC ####[facility] [address] [place] [address] USASodium [Moles/Vol]140 mmol/JXmvfcz556-792Swy [facility] Physician GroupComment on above: Performed By: #### CMP, DIFF CBC ####[facility] [address] [place] [address] USAUrea nitrogen [Mass/Vol]19 mg/dLNormal7-25The [facility] Physician GroupComment on above:Performed By: #### CMP, DIFF CBC ####[facility] [address] [place] [address] [facility] Comprehensive metabolic panelon 22-44-5211Lkbiwds [Mass/Vol]3.5 g/dL3.5 - 5.7 g/dLNOPR HealthcareAlbumin/Globulin [Mass ratio]1.4 {ratio}NOMS HealthcareALP [Catalytic activity/Vol]104 U/L34 - 104 U/LNOMS HealthcareALT [Catalytic activity/Vol]24 U/L7 - 52 U/LNOMS HealthcareAnion gap [Moles/Vol]7.9 mmol/L6.0 - 15.0 meq/LNOMS HealthcareAST [Catalytic activity/Vol]38 U/L13 - 39 U/LNOMS HealthcareBilirubin [Mass/Vol]0.9 mg/dL0.3 - 1.0 mg/dLNOMS HealthcareCalcium [Mass/Vol]8.7 mg/dL8.6 - 10.3 mg/dLNOPR HealthcareChloride [Moles/Vol]108 mmol/L High98 - 107 mmol/LNOMS HealthcareCO2 [Moles/Vol]28.3 mmol/L21.0 - 31.0 mmol/L [facility] HealthcareCreatinine (U) [Mass/Vol]0.92 mg/dL0.60 - 1.20 mg/dLNOPR HealthcareCREATININE CLR CALC EVKWTAPZ69.09NOMS HealthcareESTIMATED GFRmL/Min NOMS HealthcareGlobulin (S) [Mass/Vol]2.5 g/dLNOPR HealthcareGlucose [Mass/Vol] 111 mg/rIDlex84 - 100 mg/dLNOPR HealthcareComment on above:Random Glucose Reference Range is dependent on time and content of last meal. Glucose of more than 200 mg/dL in a nonstressed, ambulatory subject supports the diagnosis of Diabetes Mellitus. ADA recommended reference range Interpretation and review of laboratory resultsAbnormalNOMS HealthcarePotassium [Moles/Vol]4.2 mmol/L3.5 - 5.1 mmol/LNOMS HealthcareProtein [Mass/Vol]6 g/dLLow 6.4 - 8.9 g/dLNOPR HealthcareSodium [Moles/Vol]140 mmol/L136 - 145 mmol/LNOMS HealthcareUrea nitrogen [Mass/Vol]19 mg/dL7 - 25 mg/dLNOWright Memorial HospitalNOPR HealthcareDacrocytes [Presence] in Blood by Light microscopyOrdered By: Fabiola Marinelli on 68-41-8448Tuczpcyckj LM Ql (Bld)Teardrop cell detectionSalem City HospitalDacrocytes LM Ql (Bld)SlightSalem City HospitalDiff and CBCon 98-74-8021Qkjqmpdnueqk Ql (Bld)MarkedNoAtrium Health Cabarrus Physician GroupComment on above:Performed By: #### CMP, DIFF CBC ####[address] [address] USABasophils/100 WBC (Bld)1 %Normal0-2The [facility] CenterComment on above:Performed By: #### CMP, DIFF CBC ####[address] [address] USAEosinophils/100 WBC (Bld)12 %High1-3The [facility] Comment on above:Performed By: #### CMP, DIFF CBC ####[address] [address] USAErythrocyte distribution width (RBC) [Ratio]24.1 %High11.9-15.3The [facility]ician [facility] CenterComment on above: Performed By: #### CMP, DIFF CBC ####[address] [address] USAGiant Platelet Tally2 /100{WBC}NormalThe [facility] Physician GroupComment on above:Performed By: #### CMP, DIFF CBC ####[place] [address] USAHematocrit (Bld) [Volume fraction]35.1 %Rtjdof95.0-46.4The [facility] Physician GroupComment on above:Performed By: #### CMP, DIFF CBC ####[place] [address] USAHemoglobin (Bld) [Mass/Vol]11.7 g/dLLow 11.8-15.4The [facility] Physician GroupComment on above:Performed By: #### CMP, DIFF CBC ####[place] [address] USALymphocytes/100 WBC (Bld)24 %Jpqtqg40-32Iuk [facility] Physician GroupComment on above:Performed By: #### CMP, DIFF CBC ####[place] [address] [facility] M[facility]ICOMCH (RBC) [Entitic mass]32.5 pgNormal 24.7-34.3The [facility] Physician GroupComment on above:Performed By: #### CMP, DIFF CBC ####[place] [address] USAMCV (RBC) [Entitic vol]97.7 sPUahwkr42-358Gol [facility] Comment on above:Performed By: #### CMP, DIFF CBC ####[place] [address] USAMean Corpuscular HGB Conc33.3 g/dL Bmstpx82.0-35.0The [facility] Physician GroupComment on above:Performed By: #### CMP, DIFF CBC ####[place] [address] USAMicrocytosisSlightNormalThe [facility] Physician GroupComment on above: Performed By: #### CMP, DIFF CBC ####[place] [address] USAMonocytes/100 WBC (Bld)12 %High2-11The [facility] Physician GroupComment on above:Performed By: #### CMP, DIFF CBC ####[address] [address] USAOvalocytesSlight NormalThe [facility] Physician [facility] CenterComment on above:Performed By: #### CMP, DIFF CBC ####[address] [address] [place] Platelet EstimateDecreasedNormalNormAultman Orrville Hospitale [facility] Physician GroupComment on above:Performed By: #### CMP, DIFF CBC ####[address] [address] USAPlatelet mean volume (Bld) [Entitic vol]8.5 fL Normal6.3-10.7The [facility] Physician GroupComment on above:Performed By: #### CMP, DIFF CBC ####[address] [address] USAPlatelet MorphologyNormalNormUF Health [facility] Physician Group Comment on above:Result Comment: PERFORMED BY:[address] [place], [place] [phone] MEDICAL DIRECTORTAVIA SCHMIDT M.D.Performed By: #### CMP, DIFF CBC ####[address] [address] [place] Platelets (Bld) [#/Vol]45 10*3/gUWuy860-296Nwe [facility] Physician GroupComment on above:Performed By: #### CMP, DIFF CBC ####[address] [address] USAPoikilocytosisSlightNormOrlando Health - [facility] Physician [facility] CenterComment on above:Performed By: #### CMP, DIFF CBC ####[address] [address] USARBC (Bld) [#/Vol]3.59 10*6/uLLow3.60-5.00The [facility] Physician GroupComment on above:Performed By: #### CMP, DIFF CBC ####[address] [address] USAReactive Lymphocytes1 %Normal0-12The [facility] Comment on above:Performed By: #### CMP, DIFF CBC ####[facility] [address] [place] [id number] USASegmented neutrophils/100 WBC (Bld)51 %Xysaxv82-42Dqk [facility] Physician GroupComment on above:Performed By: #### CMP, DIFF CBC ####[facility] [address] [place] [id number] USATear Drop CellsSlightNormalThe [facility] Physician GroupComment on above:Performed By: #### CMP, DIFF CBC ####[facility] [address] [place] [id number] USAWBC (Bld) [#/Vol]1.9 10*3/uLLow3.8-11.6The [facility] Physician GroupComment on above:Performed By: #### CMP, DIFF CBC ####[place] [address] [place] Eosinophils/100 WBC Manual cnt (Bld)Ordered By: Fabiola Marinelli on 02-15-2025 Eosinophils/100 WBC (Bld)Eosinophils/100 leukocytes in Blood by Manual countBluefield Regional Medical Center 1-3FPremier HealthGiant platelets/100 leukocytes [Ratio] in Blood by Manual countOrdered By: Fabiola Marinelli on 69-07-9228Zbtud platelets/100 WBC Manual cnt (Bld) [Ratio]Giant platelets/100 leukocytes [Ratio] in Blood by Manual countSalem City HospitalLymphocytes/100 WBC Manual cnt (Bld)Ordered By: Fabiola Marinelli on 21-86-8488Kqzgrcpasji/100 WBC (Bld)Lymphocytes/100 leukocytes in Blood by Manual gqoid93-28UyypbbylkSalem City Hospital Microcytes LM Ql (Bld)Ordered By: Fabiola Marinelli on 81-63-1615Iaqvaurfan Ql (Bld) Microcytes [Presence] in Blood by Light microscopySalem City HospitalMicrocytes Ql (Bld)SlightSalem City HospitalMonocytes/100 WBC Manual cnt (Bld)Ordered By: Fabiola Marinelli on 70-06-1650Dgypkttwc/100 WBC (Bld) Monocytes/100 leukocytes in Blood by Manual countHigh2-11Salem City HospitalOvalocytes [Presence] in Blood by Light microscopyOrdered By: Fabiola Marinelli on 55-57-6214Dzvfemrtyx LM Ql (Bld)Ovalocyte detectionSalem City HospitalPoikilocytosis [Presence] in Blood by Light microscopyOrdered By: Fabiola Marinelli on 66-99-2124Pakspvztgnqljh LM Ql (Bld)Poikilocytosis [Presence] in Blood by Light microscopyRiverview Health Instituteegmented neutrophils/100 WBC Manual cnt (Bld)Ordered By: Fabiola Marinelli on 45-40-3885Syqmrbonl neutrophils/100 WBC (Bld)Manual blood segmented neutrophils/100 vupatqraaj68-52 [facility] City HospitalVariant lymphocytes/100 WBC Manual cnt (Bld) Ordered By: Fabiola Marinelli on 70-86-3946Vsfxrbn lymphocytes/100 WBC (Bld)Variant lymphocytes/100 leukocytes in Blood by Manual count0-12[facility] City HospitalVariant lymphocytes/100 WBC (Bld)1 %0-12[facility] City HospitalAnisocytosis LM Ql (Bld)Ordered By: Fabiola Marinelli on 51-77-4697Qxngnwrswdut Ql (Bld)Anisocytosis [Presence] in Blood by Light microscopySalem City HospitalBasophils Auto (Bld) [#/Vol]Ordered By: Fabiola Marinelli on 01-30-2025 Basophils (Bld) [#/Vol]Automated basophil count0.0-0.2FPremier HealthBasophils/100 WBC Auto (Bld)Ordered By: Fabiola Marinelli on 01-30-2025 Basophils/100 WBC (Bld)Automated basophil %.[facility] Creatinineon 02-54-2836Ggieqbliyk [Mass/Vol]0.84 mg/dLNormal0.60-1.20The [facility] Physician GroupComment on above:Performed By: #### FE and TIBC, SCAN CBC, NERY, CREAT ####[facility] [address] [place] [address] USACreatinine Clr Calc Kbehxlgn44.50NormalThe [facility] Comment on above:Performed By: #### FE and TIBC, SCAN CBC, NERY, CREAT ####[facility] [place] [address] [place] GFR/1.73 sq M.predicted MDRD (S/P/Bld) [Vol rate/Area]mL/min/{1.73_m2}NormalThe [facility] Physician GroupComment on above:Performed By: #### FE and TIBC, SCAN CBC, NERY, CREAT ####[address] [address] USACreatinine [Mass/volume] in Serum or PlasmaOrdered By: Fabiola Marinelli on 32-45-0593Sjnpnoqnku [Mass/Vol]Creatinine [Mass/volume] in Serum or Plasma 0.60-1.20Sal[facility] City HospitalEosinophils Auto (Bld) [#/Vol]Ordered By: Fabiola Marinelli on 89-66-6222Jsudorjdspt (Bld) [#/Vol]Automated eosinophil count 0.0-0.45Sal[facility] City HospitalEosinophils/100 WBC Auto (Bld)Ordered By: Fabiola Marinelli on 14-55-8392Rlwixvvjgvb/100 WBC (Bld)Automated eosinophil %. [facility] City HospitalErythrocyte distribution width Auto (RBC) [Ratio]Ordered By: Fabiola Marinelli on 16-51-0825Dwhebgibrge distribution width (RBC) [Ratio]Erythrocyte distribution width [Ratio] by Automated iwuqnCwzn93.9-15.3 [facility] HospitalErythrocyte morphology finding [Identifier] in BloodOrdered By: Fabiola Marinelli on 96-13-1489CLF morphology finding Nom (Bld)RBC morphologySalem City HospitalFerritinon 19-60-9165Eenoztlk [Mass/Vol]674.0 ng/pSCage88.0-306.8The [facility] Physician GroupComment on above:Result Comment: PERFORMED BY:[address] [place], [place] [phone] MEDICAL DIRECTORTAVIA HORAN M.D.Performed By: #### FE and TIBC, SCAN CBC, NERY, CREAT ####[address] [address] USAFerritin [Mass/volume] in Serum or PlasmaOrdered By: Fabiola Marinelli on 00-96-5448Sjzupfla [Mass/Vol]Ferritin [Mass/volume] in Serum or WqopcaRxgm96.0-306.8Sal[facility] City HospitalHematocrit Auto (Bld) [Volume fraction]Ordered By: Fabiola Marinelli on 60-70-2400Hfvoypeawp (Bld) [Volume fraction]Hematocrit [Volume Fraction] of Blood by Automated count34.0-46.4FPremier Health Hemoglobin [Mass/volume] in BloodOrdered By: Fabiola Marinelli on 11-06-8719Kvzxxxnrhc (Bld) [Mass/Vol]Hemoglobin [Mass/volume] in GlynmDry71.8-15.4FPremier HealthHypochromia LM Ql (Bld)Ordered By: Fabiola Marinelli on 01-30-2025 Hypochromia Ql (Bld)Hypochromia [Presence] in Blood by Light microscopySalem City HospitalHypochromia Ql (d)ModerateSalem City HospitalIron [Mass/volume] in Serum or PlasmaOrdered By: Fabiola Marinelli on 01-30-2025 Iron [Mass/Vol]Iron [Mass/volume] in Serum or Tdeuny69-598JpbofrmipSalem City HospitalIron and TIBC Profileon 01-30-2025% Iron Smtexqjiji26.7 %Normal 20-50The [facility] Physician GroupComment on above:Performed By: #### FE and TIBC, SCAN CBC, NERY, CREAT ####[facility] [address] [place] [address] USAIron [Mass/Vol]94 ug/fIGklknu96-008Ejo [facility] Physician GroupComment on above:Performed By: #### FE and TIBC, SCAN CBC, NERY, CREAT ####[facility] [address] [place] [address] [facility] Total Iron Binding Cbbldtpy156 ug/wAZhgrll845-160Aio [facility] Comment on above:Performed By: #### FE and TIBC, SCAN CBC, NERY, CREAT ####[facility] [address] [place] [phone] [place] Transferrin [Mass/Vol]199 mg/pPFcb697-823Psy [facility] Physician GroupComment on above:Performed By: #### FE and TIBC, SCAN CBC, NERY, CREAT ####[facility] [address] [place] [address] USALeukocytes [#/volume] corrected for nucleated erythrocytes in Blood by Automated counOrdered By: Fabiola Marinelli on 31-16-0680PWP corrected for nucl RBC Auto (Bld) [#/Vol]Leukocytes [#/volume] corrected for nucleated erythrocytes in Blood by Automated counLow 3.8-11.6FPremier HealthLymphocytes Auto (Bld) [#/Vol]Ordered By: Fabiola Marinelli on 68-34-8835Ijvumqkweyy (Bld) [#/Vol]Lymphocytes [#/volume] in Blood by Automated countLow1.00-4.8[facility] Lymphocytes/100 WBC Auto (Bld)Ordered By: Fabiola Marinelli on 95-18-1503Khzsduzetzc/100 WBC (Bld)Lymphocytes/100 leukocytes in Blood by Automated count.Sal[facility] City HospitalMCH Auto (RBC) [Entitic mass]Ordered By: Fabiola Marinelli on 32-85-4184BUF (RBC) [Entitic mass]MCH [Entitic mass] by Automated count24.7-34.3 [facility] City HospitalMCHC Auto (RBC) [Mass/Vol]Ordered By: Fabiola Marinelli on 22-30-7011WOOX (RBC) [Mass/Vol]MCHC [Mass/volume] by Automated count 32.0-35.0Sal[facility] City HospitalMCV Auto (RBC) [Entitic vol]Ordered By: Fabiola Marinelli on 37-44-1723AGD (RBC) [Entitic vol]MCV [Entitic volume] by Automated rneyp17-092BeqdfzbguSalem City HospitalMonocytes Auto (Bld) [#/Vol]Ordered By: Fabiola Marinelli on 87-54-4767Kfxpxnnuj (Bld) [#/Vol]Automated blood monocyte count0.0-0.8Sal[facility] City HospitalMonocytes/100 WBC Auto (Bld)Ordered By: Fabiola Marinelli on 26-10-7906Qmocjfvgw/100 WBC (Bld)Automated monocyte %.[facility] City HospitalNeutrophils Auto (Bld) [#/Vol] Ordered By: Fabiola Marinelli on 60-57-9345Npaxzzhmbez (Bld) [#/Vol]Neutrophils [#/volume] in Blood by Automated countLow1.8-7.7FPremier HealthNeutrophils/100 WBC Auto (Bld)Ordered By: Fabiola Marinelli on 01-30-2025 Neutrophils/100 WBC (Bld)Automated neutrophil %.[facility] City HospitalNo Panel InformationOrdered By: Fabiola Marinelli on 01-30-2025> 60.0 mL/Min [facility]65.50[facility] City HospitalNucleated erythrocytes [Presence] in Blood by Automated countOrdered By: Fabiola Marinelli on 03-19-8577Wewzfwcdq RBC Auto Ql (Bld)Nucleated erythrocytes [Presence] in Blood by Automated count0-0.5FPremier HealthOvalocytes [Presence] in Blood by Light microscopyOrdered By: Fabiola Marinelli on 60-46-9157Egixiklxpu LM Ql (Bld)Ovalocyte detectionSalem City HospitalPlatelet adequacy [Presence] in Blood by Light microscopyOrdered By: Fabiola Marinelli on 01-30-2025 Platelets LM Ql (Bld)Platelet adequacy [Presence] in Blood by Light microscopy NormalSalem City HospitalPlatelet mean volume Auto (Bld) [Entitic vol]Ordered By: Fabiola Marinelli on 11-65-2666Mgugjcca mean volume (Bld) [Entitic vol] Platelet mean volume [Entitic volume] in Blood by Automated count6.3-10.7 [facility] HospitalPlatelet morphology finding [Identifier] in BloodOrdered By: Fabiola Marinelli on 57-73-4751Blnztspz morphology finding Nom (Bld) Platelet morphology finding [Identifier] in BloodNormalSalem City HospitalPlatelets Auto (Bld) [#/Vol]Ordered By: Fabiola Marinelli on 01-30-2025 Platelets (Bld) [#/Vol]Platelets [#/volume] in Blood by Automated countLow 150-450Salem City HospitalPoikilocytosis [Presence] in Blood by Light microscopyOrdered By: Fabiola Marinelli on 35-76-4915Rxwnshqvhvuycp LM Ql (Bld) Poikilocytosis [Presence] in Blood by Light microscopySalem City HospitalPolychromasia [Presence] in Blood by Light microscopyOrdered By: Fabiola Marinelli on 80-79-4597Tzccugwtbnsji LM Ql (Bld)Polychromasia [Presence] in Blood by Light microscopySalem City HospitalRBC Auto (Bld) [#/Vol]Ordered By: Fabiola Marinelli on 36-78-7286FBZ (Bld) [#/Vol]Erythrocytes [#/volume] in Blood by Automated count3.60-5.00Riverview Health Institutecan and CBCon 01-06-4800Jaaqbagvxldy Ql (Bld)ModerateNormalThe [facility] Comment on above:Performed By: #### FE and TIBC, SCAN CBC, NERY, CREAT ####[place] [address] [place] Basophils (Bld) [#/Vol]0.0 10*3/uLNormal0.0-0.2The [facility] Comment on above:Performed By: #### FE and TIBC, SCAN CBC, NERY, CREAT ####[place] [address] [place] Basophils/100 WBC (Bld)0.4 %Normal.The [facility] Physician GroupComment on above:Performed By: #### FE and TIBC, SCAN CBC, NERY, CREAT ####[place] [address] USAEosinophils (Bld) [#/Vol]0.2 10*3/uLNormal0.0-0.45The [facility] Physician GroupComment on above: Performed By: #### FE and TIBC, SCAN CBC, NERY, CREAT ####[place] [address] USAEosinophils/100 WBC (Bld)9.4 % Normal.The [facility] Physician GroupComment on above:Performed By: #### FE and TIBC, SCAN CBC, NERY, CREAT ####[address] [place] [address] USAErythrocyte distribution width (RBC) [Ratio]26.9 %High 11.9-15.3The [facility] Physician GroupComment on above:Performed By: #### FE and TIBC, SCAN CBC, NERY, CREAT ####[place] [address] USAHematocrit (Bld) [Volume fraction]34.2 %Normal 34.0-46.4The [facility] Physician GroupComment on above:Performed By: #### FE and TIBC, SCAN CBC, NERY, CREAT ####[place] [address] USAHemoglobin (Bld) [Mass/Vol]11.4 g/dLLow11.8-15.4The [facility] Physician GroupComment on above:Performed By: #### FE and TIBC, SCAN CBC, NERY, CREAT ####[place] [address] USAHypochromasiaModerateNormalThe [facility] Physician GroupComment on above:Performed By: #### FE and TIBC, SCAN CBC, NERY, CREAT ####[place] [address] USALymphocytes (Bld) [#/Vol]0.6 10*3/uLLow1.00-4.8The [facility] Physician GroupComment on above: Performed By: #### FE and TIBC, SCAN CBC, NERY, CREAT ####[place] [address] USALymphocytes/100 WBC (Bld)26.0 %Normal.The [facility]health Physician GroupComment on above:Performed By: #### FE and TIBC, SCAN CBC, NERY, CREAT ####[place] [address] USAMCH (RBC) [Entitic mass]31.2 hlHehknq93.7-34.3The [facility] Physician GroupComment on above:Performed By: #### FE and TIBC, SCAN CBC, NERY, CREAT ####[place] [address] USAMCV (RBC) [Entitic vol]93.9 fKGiddnv34-136Vkn [facility] Comment on above:Performed By: #### FE and TIBC, SCAN CBC, NERY, CREAT ####[place] [address] USAMean Corpuscular HGB Conc33.3 g/dRPoujxz96.0-35.0The [facility] Physician GroupComment on above:Performed By: #### FE and TIBC, SCAN CBC, NERY, CREAT ####[place] [address] USAMonocytes (Bld) [#/Vol]0.6 10*3/uLNormal0.0-0.8The [facility] Physician GroupComment on above: Performed By: #### FE and TIBC, SCAN CBC, NEYR, CREAT ####[place] [address] USAMonocytes/100 WBC (Bld)25.8 % Normal.The [facility] Physician GroupComment on above:Performed By: #### FE and TIBC, SCAN CBC, NERY, CREAT ####[place] [address] USANeutrophils (Bld) [#/Vol]0.9 10*3/uLLow1.8-7.7The [facility] Physician GroupComment on above:Performed By: #### FE and TIBC, SCAN CBC, NERY, CREAT ####[place] [address] USANeutrophils/100 WBC (Bld)38.4 %Normal.The [facility] Comment on above:Performed By: #### FE and TIBC, SCAN CBC, NERY, CREAT ####[place] [address] USANRBC% 0.1 /100{WBC}Normal0-0.5The [facility] Physician GroupComment on above:Performed By: #### FE and TIBC, SCAN CBC, NERY, CREAT ####[address] [address] USAOvalocytesSHaywood Regional Medical Center Physician GroupComment on above:Performed By: #### FE and TIBC, SCAN CBC, NERY, CREAT ####[address] [address] [place] Platelet EstimateDecreasedNormUF Health Shands [facility] Physician GroupComment on above:Performed By: #### FE and TIBC, SCAN CBC, NERY, CREAT ####[address] [address] USAPlatelet mean volume (Bld) [Entitic vol]8.3 fLNormal6.3-10.7The [facility] Physician GroupComment on above:Performed By: #### FE and TIBC, SCAN CBC, NERY, CREAT ####[address] [address] USAPlatelet Morphology NormalNoMercy Health Clermont Hospital GroupComment on above:Result Comment: PERFORMED BY:[address] TSERINGRobertoGEORGETOWN, [place] [phone] MEDICAL DIRECTORTAVIA SCHMIDT M.D. Performed By: #### FE and TIBC, SCAN CBC, NERY, CREAT ####[address] [address] USAPlatelets (Bld) [#/Vol]49 10*3/hLZvo205-939Ygz [facility] Physician GroupComment on above:Performed By: #### FE and TIBC, SCAN CBC, NERY, CREAT ####[address] [address] USAPoikilocytosisSHaywood Regional Medical Center Physician GroupComment on above:Performed By: #### FE and TIBC, SCAN CBC, NERY, CREAT ####[address] [address] [place] PolychromasiaSHaywood Regional Medical Center Physician GroupComment on above:Performed By: #### FE and TIBC, SCAN CBC, NERY, CREAT ####[place] [address] [place] [id number] USARBC (Bld) [#/Vol]3.64 10*6/uLNormal 3.60-5.00The [facility] Physician GroupComment on above:Performed By: #### FE and TIBC, SCAN CBC, NERY, CREAT ####[place] [address] [place] [id number] USASchistocytesSlightNoAtrium Health Cabarrus Physician [facility] Comment on above:Performed By: #### FE and TIBC, SCAN CBC, NERY, CREAT ####[place] [address] [place] [id number] USAWBC (Bld) [#/Vol]2.4 10*3/uLLow3.8-11.6The [facility] Physician GroupComment on above:Performed By: #### FE and TIBC, SCAN CBC, NERY, CREAT ####[place] [address] USASchistocytes [Presence] in Blood by Light microscopyOrdered By: Fabiola Marinelli on 01-30-2025 Schistocytes LM Ql (Bld)Schistocytes [Presence] in Blood by Light microscopy [facility] Health Institutechistocytes LM Ql (Bld)[facility] John Medical Centererum or plasma iron binding capacity measurement (mass/volume)Ordered By: Fabiola Marinelli on 53-32-8650Ntdj binding capacity [Mass/Vol] Iron binding capacity [Mass/volume] in Serum or Umzqik232-392IlltfxbubRiverview Health Instituteerum or plasma iron saturation measurement (mass fraction)Ordered By: Fabiola Marinelli on 90-51-5131Xxra saturation [Mass fraction]Iron saturation [Mass Fraction] in Serum or Qcxdzq19-90LvlfempdfSalem City HospitalTransferrin [Mass/volume] in Serum or PlasmaOrdered By: Fabiola Marinelli on 89-74-6465Hprcwzpsuyp [Mass/Vol]Transferrin [Mass/volume] in Serum or IbclzaYst858-374LzhlvdrgvSalem City HospitalWBC Auto (Bld) [#/Vol]Ordered By: Fabiola Marinelli on 01-30-2025 WBC (Bld) [#/Vol]Leukocytes [#/volume] in Blood by Automated countLow3.8-11.6 [facility] City HospitalAlanine aminotransferase [Enzymatic activity/volume] in Serum or PlasmaOrdered By: Fabiola Marinelli on 50-46-4348ZJQ [Catalytic activity/Vol]Alanine aminotransferase [Enzymatic activity/volume] in Serum or Plasma7-52Sal[facility] City HospitalAlbumin [Mass/volume] in Serum or Plasma by Bromocresol green (BCG) dye binding methoOrdered By: Fabiola Marinelli on 06-27-2460Elsyupg BCG dye [Mass/Vol]Albumin [Mass/volume] in Serum or Plasma by Bromocresol green (BCG) dye binding metho3.5-5.7FPremier HealthAlkaline phosphatase [Enzymatic activity/volume] in Serum or PlasmaOrdered By: Fabiola Marinelli on 58-96-3059EPN [Catalytic activity/Vol]Alkaline phosphatase [Enzymatic activity/volume] in Serum or QfouurWknl36-779IvvflpvuoSalem City HospitalAspartate aminotransferase [Enzymatic activity/volume] in Serum or PlasmaOrdered By: Fabiola Marinelli on 32-00-1416MXE [Catalytic activity/Vol] Aspartate aminotransferase [Enzymatic activity/volume] in Serum or Bxyesw07-85 [facility] HospitalBilirubin.total [Mass/volume] in Serum or PlasmaOrdered By: Fabiola Marinelli on 18-66-2585Yuypgkuxz [Mass/Vol]Bilirubin.total [Mass/volume] in Serum or Plasma0.3-1.0[facility] City HospitalCalcium [Mass/volume] in Serum or PlasmaOrdered By: Fabiola Marinelli on 50-69-6870Wtryaar [Mass/Vol]Calcium [Mass/volume] in Serum or PlasmaLow8.6-10.3FPremier HealthCarbon dioxide, total [Moles/volume] in Serum or PlasmaOrdered By: Fabiola Marinelli on 20-34-1105FC6 [Moles/Vol]Carbon dioxide, total [Moles/volume] in Serum or Wdfkgv25.0-31.0Sal[facility] City HospitalChloride [Moles/volume] in Serum or PlasmaOrdered By: Fabiola Marinelli on 47-37-0225Cjcojusw [Moles/Vol] Chloride [Moles/volume] in Serum or Hesbbc90-065TmofehtjxSalem City HospitalComprehensive Metabolic Panelon 25-58-3331Ddgcoca [Mass/Vol]3.8 g/dLNormal 3.5-5.7The [facility] Physician GroupComment on above:Performed By: #### CMP ####[address] [address] [place] Albumin/Globulin [Mass ratio]1.7 {ratio}NormalThe [facility] Comment on above:Performed By: #### CMP ####[address] [address] USAALP [Catalytic activity/Vol]112 U/FItjz38-842 The [facility] Physician GroupComment on above:Performed By: #### CMP ####[address] [address] USAALT [Catalytic activity/Vol]16 U/LNormal7-52The [facility] Physician GroupComment on above:Performed By: #### CMP ####[address] [address] USAAnion gap [Moles/Vol]9.2 mmol/LNormal6.0-15.0The [facility] Physician GroupComment on above:Performed By: #### CMP ####[address] [address] USAAST [Catalytic activity/Vol]32 U/BSqbjkd21-16Ozz [facility] Physician GroupComment on above: Performed By: #### CMP ####[address] [address] USABilirubin [Mass/Vol]0.9 mg/dLNormal0.3-1.0The [facility] Physician GroupComment on above:Performed By: #### CMP ####[address] [address] USACalcium [Mass/Vol]8.0 mg/dLLow8.6-10.3The [facility] Physician GroupComment on above:Performed By: #### CMP ####[address] [address] USAChloride [Moles/Vol]105 mmol/XCphmnp49-812Atv [facility]ician [facility] Comment on above:Performed By: #### CMP ####[address] [address] USACO2 [Moles/Vol]24.4 mmol/NAdilwk97.0-31.0The [facility] Physician GroupComment on above:Performed By: #### CMP ####[address] [address] USACreatinine [Mass/Vol] 1.02 mg/dLNormal0.60-1.20The [facility] Physician GroupComment on above:Performed By: #### CMP ####[address] [address] USACreatinine Clr Calc Ygvcdawd26.12NoAtrium Health Cabarrus Physician [facility] Comment on above:Result Comment: PERFORMED BY:[address] [place], [place] [phone] MEDICAL DIRECTORTAVIA SCHMIDT M.D.Performed By: #### CMP ####[address] [address] USAGFR/1.73 sq M.predicted MDRD (S/P/Bld) [Vol rate/Area]mL/min/{1.73_m2}NormalThe [facility] Physician [facility] Comment on above:Performed By: #### CMP ####[address] [address] USAGlobulin (S) [Mass/Vol]2.3 g/dLNoAtrium Health Cabarrus Physician GroupComment on above:Performed By: #### CMP ####[address] [address] USAGlucose [Mass/Vol]186 mg/oCUshq23-459Jsb [facility] Physician GroupComment on above:Result Comment: Random Glucose Reference Range is dependent on time and content of last meal. Glucose of more than 200 mg/dL in a nonstressed, ambulatory subject supports the diagnosis of Diabetes Mellitus. ADA recommended reference rangePerformed By: #### CMP ####[address] [place] [address] USAPotassium [Moles/Vol]4.6 mmol/LNormal3.5-5.1The [facility] Comment on above:Performed By: #### CMP ####[place] [address] USAProtein [Mass/Vol]6.1 g/dLLow6.4-8.9The [facility] Physician GroupComment on above:Performed By: #### CMP ####[place] [address] USASodium [Moles/Vol]134 mmol/EVoe401-769Mou [facility] Physician GroupComment on above:Performed By: #### CMP ####[place] [address] USAUrea nitrogen [Mass/Vol]15 mg/dLNormal7-25The [facility] Comment on above:Performed By: #### CMP ####[place] [address] USAGlobulin Calc (S) [Mass/Vol]Ordered By: Fabiola Marinelli on 77-95-2107Jsldivar (S) [Mass/Vol]Serum globulin measurement by calculation (mass/volume)[facility] City HospitalGlucose [Mass/volume] in Serum or PlasmaOrdered By: Fabiola Marinelli on 52-83-5688Vlijpal [Mass/Vol]Glucose [Mass/volume] in Serum or LpxrenLnem62-889RffspfgzuSalem City Hospital Microcytes LM Ql (Bld)Ordered By: Fabiola Marinelli on 25-27-4920Iygvfxnsee Ql (Bld) Microcytes [Presence] in Blood by Light microscopySalem City HospitalPotassium [Moles/volume] in Serum or PlasmaOrdered By: Fabiola Marinelli on 13-03-9002Wyafekvlb [Moles/Vol]Potassium [Moles/volume] in Serum or Plasma 3.5-5.1FPremier HealthProtein [Mass/volume] in Serum or Plasma Ordered By: Fabiola Marinelli on 85-00-0336Xnzgjcu [Mass/Vol]Protein [Mass/volume] in Serum or PlasmaLow6.4-8.9Riverview Health Institutecan and CBCon 37-40-9256Xyijgfcxlell Ql (Bld)SlightNormalThe [facility] Physician GroupComment on above:Performed By: #### SCAN CBC ####[place] [address] USABasophils (Bld) [#/Vol]0.0 10*3/uLNormal 0.0-0.2The [facility] Physician GroupComment on above:Performed By: #### SCAN CBC ####[place] [address] [place] Basophils/100 WBC (Bld)0.3 %Normal.The [facility] Physician GroupComment on above:Performed By: #### SCAN CBC ####[place] [address] USAEosinophils (Bld) [#/Vol]0.0 10*3/uLNormal0.0-0.45 The [facility] Physician GroupComment on above:Performed By: #### SCAN CBC ####[place] [address] [place] Eosinophils/100 WBC (Bld)0.7 %Normal.The [facility] Physician GroupComment on above:Performed By: #### SCAN CBC ####[place] [address] USAErythrocyte distribution width (RBC) [Ratio]25.7 % High11.9-15.3The [facility] Physician GroupComment on above:Performed By: #### SCAN CBC ####[place] [address] USAHematocrit (Bld) [Volume fraction]31.8 %Low34.0-46.4The [facility] Physician GroupComment on above:Performed By: #### SCAN CBC ####[place] [address] USAHemoglobin (Bld) [Mass/Vol]10.4 g/dL Low11.8-15.4The [facility] Physician GroupComment on above:Performed By: #### SCAN CBC ####[place] [address] USAHypochromasiaSHaywood Regional Medical Center Physician GroupComment on above: Performed By: #### SCAN CBC ####[place] [address] USALymphocytes (Bld) [#/Vol]0.3 10*3/uLLow1.00-4.8The [facility] Physician GroupComment on above:Performed By: #### SCAN CBC ####[place] [address] [place] Lymphocytes/100 WBC (Bld)13.1 %Normal.The [facility] Physician GroupComment on above:Performed By: #### SCAN CBC ####[address] StreetMCH (RBC) [Entitic mass]29.4 sqSanjsd15.7-34.3The [facility] Physician GroupComment on above:Performed By: #### SCAN CBC ####[address] (RBC) [Entitic vol]90.3 zBRljtjh76-307Idh [facility] Physician GroupComment on above:Performed By: #### SCAN CBC ####[place] [address] USAMean Corpuscular HGB Conc32.6 g/vRQelbqz81.0-35.0The [facility] Physician GroupComment on above:Performed By: #### SCAN CBC ####[place] [address] [place] MicrocytosisSlightNormOrlando Health - Health Central Hospital Physician GroupComment on above:Performed By: #### SCAN CBC ####[place] [address] USAMonocytes (Bld) [#/Vol]0.2 10*3/uLNormal0.0-0.8The [facility] Physician GroupComment on above:Performed By: #### SCAN CBC ####[place] [address] USAMonocytes/100 WBC (Bld)7.1 %Normal.The [facility] Physician GroupComment on above:Performed By: #### SCAN CBC ####[place] [address] USANeutrophils (Bld) [#/Vol]2.1 10*3/uLNormal1.8-7.7The [facility] Physician GroupComment on above:Performed By: #### SCAN CBC ####[place] [address] USANeutrophils/100 WBC (Bld)78.8 %Normal.The [facility] Physician GroupComment on above:Performed By: #### SCAN CBC ####[place] [address] USANRBC%0.2 /100{WBC}Normal0-0.5The [facility] Physician GroupComment on above:Performed By: #### SCAN CBC ####[place] [address] USAOvalocytesSlightNormOrlando Health - Health Central Hospital Physician Group Comment on above:Performed By: #### SCAN CBC ####[place] [address] USAPlatelet EstimateDecreasedNormalNormal The [facility] Physician GroupComment on above:Performed By: #### SCAN CBC ####[place] [address] [place] Platelet mean volume (Bld) [Entitic vol]8.0 fLNormal6.3-10.7The [facility] Physician GroupComment on above:Performed By: #### SCAN CBC ####[place] [address] USAPlatelet Morphology NormalNormalNormOrlando Health [facility] Hospital Physician [facility] CenterComment on above:Result Comment: PERFORMED BY:[address] [place], [place] [phone] MEDICAL JAEL SCHMIDT M.D. Performed By: #### SCAN CBC ####[place] [address] USAPlatelets (Bld) [#/Vol]59 10*3/jNHhq458-993Yfb [facility] Physician GroupComment on above:Performed By: #### SCAN CBC ####[place] [address] [address] PoikilocytosisSHaywood Regional Medical Center Physician GroupComment on above: Performed By: #### SCAN CBC ####[place] [address] USAPolychromasiaSHaywood Regional Medical Center Physician GroupComment on above:Performed By: #### SCAN CBC ####[place] [address] USARBC (Bld) [#/Vol]3.52 10*6/uLLow 3.60-5.00The [facility] Physician GroupComment on above:Performed By: #### SCAN CBC ####[place] [address] USAWBC (Bld) [#/Vol]2.6 10*3/uLLow3.8-11.6The [facility] Physician GroupComment on above:Performed By: #### SCAN CBC ####[place] [address] USASerum or plasma albumin/globulin mass ratioOrdered By: Fabiola Marinelli on 42-48-0734Rdpxuss/Globulin [Mass ratio]Serum or plasma albumin/globulin mass ratioRiverview Health Instituteerum or plasma anion gap determinationOrdered By: Fabiola Marinelli on 39-63-8171Yhqmr gap [Moles/Vol] Serum or plasma anion gap determination6.0-15.0[facility] Sodium [Moles/volume] in Serum or PlasmaOrdered By: Fabiola Marinelli on 01-18-2025 Sodium [Moles/Vol]Sodium [Moles/volume] in Serum or TqwshuFek454-482AjxzfyzrrSalem City HospitalUrea nitrogen [Mass/volume] in Serum or PlasmaOrdered By: Fabiola Marinleli on 86-51-5736Hxnu nitrogen [Mass/Vol]Urea nitrogen [Mass/volume] in Serum or Plasma7-25Sal[facility] City HospitalCBC panel Auto (Bld)on 44-11-9398Gnsftvhgemi distribution width (RBC) [Ratio]18.7 %High11.5 - 14.5 % [facility] PrebleHematocrit (Bld) [Volume fraction]28 %Low36.0 - 46.0 %[facility] PrebleHemoglobin (Bld) [Mass/Vol]8.8 g/dLLow 12.0 - 16.0 g/dLUnCentervilleInterpretation and review of laboratory resultsAbnormalUThe [facility] (RBC) [Entitic mass]27.3 pg26.0 - 34.0 pgAdena Fayette Medical CenterHC (RBC) [Mass/Vol] 31.4 g/dLLow32.0 - 36.0 g/dLAdena Fayette Medical CenterV (RBC) [Entitic vol]87 fL80 - 100 [facility] CenterniMount [address]. Mary HospitalNucleated RBC/100 WBC (Bld) [Ratio]0 %[facility] Health PreblePlatelets (Bld) [#/Vol]51 10*3/[facility]eter[facility] Health AdministrationRBC (Bld) [#/Vol]3.22 10*6/[facility] North HospitalWBC (Bld) [#/Vol]1.7 10*3/[facility] North HospitalUnCentervilleErythrocyte distribution width (RBC) [Ratio]18.7 %High11.5-14.5UnMedina HospitalComment on above:Performed By: #### 84791-5 #### SAMUEL RUIZ ([id number]) [facility] ([facility]) [address] [place], [place] [address]Vyesxfpmox (Bld) [Volume fraction]28.0 %Low36.0-46.0UnMedina HospitalComment on above:Performed By: #### 15424-1 #### SAMUEL RUIZ ([id number]) [facility] ([facility]) [address] [address], [place] [address]Gvoanmgqzn (Bld) [Mass/Vol]8.8 g/dLLow12.0-16.0[facility] Tununak Medical CenterComment on above:Performed By: #### 16618-9 #### SAMUEL RUIZ ([id number]) [facility] ([facility]) [address] [place], [place] [address]FVQ (RBC) [Entitic mass]27.3 vxUupdek18.0-34.0Providence HospitalComment on above:Performed By: #### 86728-1 #### SAMUEL RUIZ ([id number]) [facility] ([facility]) [address] [place], [place] [address]DTRD (RBC) [Mass/Vol]31.4 g/dLLow32.0-36.0Providence HospitalComment on above:Performed By: #### 11737-8 #### SAMUEL RUIZ ([id number]) [facility] ([facility]) [address] [place], [place] [address]AJE (RBC) [Entitic vol]87 zWDqikit13-896KtqpuwybgrProvidence HospitalComment on above:Performed By: #### 51598-6 #### SAMUEL RUIZ ([id number]) [facility] ([facility]) [address] [place], [place] [address]Tktufyhmw RBC/100 WBC (Bld) [Ratio]0.0 /100 WBCsNormal0.0-0.0 Providence HospitalComment on above:Performed By: #### 42307-0 #### SAMUEL RUIZ ([id number]) [facility] ([facility]) [address] [place], [place] [address]Gtchqpowu (Bld) [#/Vol]51 x10*3/aSGtn996-663UqtwtdjxrnProvidence HospitalComment on above:Performed By: #### 89751-8 #### SAMUEL RUIZ ([id number]) [facility] ([facility]) [address] [place], [place] [address]XRT (Bld) [#/Vol]3.22 x10*6/uLLow4.00-5.20Providence HospitalComment on above:Performed By: #### 18161-7 #### SAMUEL CALLGUILLERMO ([id number]) [facility] ([facility]) [address] [place], [place] [address]YNI (Bld) [#/Vol]1.7 x10*3/uLLow4.4-11.3Providence HospitalComment on above:Performed By: #### 99110-8 #### SAMUEL JAKUBGUILLERMO ([id number]) [facility] ([facility]) [address] [place], [place] [address]CZ GUIDED RF ABLATION LIVERon 58-88-1021HT GUIDED RF ABLATION LIVERInterpreted By: Дмитрий Flores, and Ashley [place] STUDY: CT GUIDED RF ABLATION LIVER; US GUIDED RF ABLATION LIVER; 01/05/2025 9:30 am; 01/05/2025 9:20 am INDICATION: Signs/Symptoms:liver lesion. COMPARISON: MRI abdomen dated 10/24/2024 ACCESSION NUMBER(S): [id number]; [id number] ORDERING CLINICIAN: RAMAN NICHOLAS TECHNIQUE: INTERVENTIONALIST(S): MD Abel Teran MD [...] findings as stated. Performed and dictated at [facility]. MACRO: None. Signed by: Дмитрий Flores 01/06/2025 8:37 AM Dictation workstation: [id number]th Grant Medical CenterCoagulation tissue factor inducedon 51-12-3204EP Coag (PPP) [Time]13.9 s High9.8-12.4UnMedina HospitalComment on above: Performed By: #### 5902-2 #### SAMUEL RUIZ ([id number]) [facility] ([facility]) [address] [place], [place] [address]Mkjsarfdqtxlz metabolic 2000 panelon 19-14-0549Harfezl BCP dye [Mass/Vol]3.6 g/dL3.4 - 5.0 g/dLUnCentervilleALP [Catalytic activity/Vol]75 U/L33 - 136 U/[facility] HospitalALT With P-5'-P [Catalytic activity/Vol]13 U/L7 - 45 U/[facility] County HospitalComment on above:Patients treated with Sulfasalazine may generate falsely decreased results for ALT.Anion gap [Moles/Vol]10 mmol/L10 - 20 mmol/[facility] County HospitalAST With P-5'-P [Catalytic activity/Vol]27 U/L9 - 39 U/[facility] HospitalBilirubin [Mass/Vol]0.6 mg/dL0.0 - 1.2 mg/dLUnCentervilleCalcium [Mass/Vol]8.5 mg/dLLow8.6 - 10.3 mg/dLUnCentervilleChloride [Moles/Vol]105 mmol/L98 - 107 mmol/[facility] HospitalCO2 [Moles/Vol]26 mmol/L21 - 32 mmol/[facility] HospitalCreatinine [Mass/Vol]0.9 mg/dL0.50 - 1.05 mg/dLUnCentervilleGFR/1.73 sq M.predicted among non-blacks MDRD (S/P/Bld) [Vol rate/Area]70 mL/min/{1.73_m2}- PINniMount St. Mary HospitalComment on above:Calculations of estimated GFR are performed using the 2020 CKD-EPI Study Refit equation without therace variable for the IDMS-Traceable creatinine methods. https://jasn.asnjournals.org/content/early//ASN.0119149239 Glucose [Mass/Vol]95 mg/dL74 - 99 mg/dLUnCenterville Interpretation and review of laboratory resultsAbnormalUniMount St. Mary HospitalPotassium [Moles/Vol]4.2 mmol/L3.5 - 5.3 mmol/[facility] HospitalProtein [Mass/Vol]5.6 g/dLLow6.4 - 8.2 g/dLUnCentervilleSodium [Moles/Vol]137 mmol/L136 - 145 mmol/[facility] County HospitalUrea nitrogen [Mass/Vol]13 mg/dL6 - 23 mg/dLUnCentervilleUnCentervilleAlbumin BCP dye [Mass/Vol]3.6 g/dL Normal3.4-5.0UnMedina HospitalComment on above: Performed By: #### 13969-9 #### SAMUEL RUIZ ([id number]) [facility] ([facility]) [address] [place], [place] [address]YOC [Catalytic activity/Vol]75 U/PCxcewd85-229EephpercwlMedina HospitalComment on above:Performed By: #### 31309-6 #### SAMUEL RUIZ ([id number]) [facility] ([facility]) [address] [address] [facility] [place], [place] [address]IDQ With P-5'-P [Catalytic activity/Vol]13 U/LNormal7-45 Providence HospitalComment on above:Result Comment: Patients treated with Sulfasalazine may generate falsely decreased results for ALT.Performed By: #### 04006-7 #### SAMUEL RUIZ ([id number]) [facility] ([facility]) [address] [facility] [place], [place] [address]Hstxf gap [Moles/Vol]10 mmol/ZZejvbe59-54GyyruzkigwMedina HospitalComment on above:Performed By: #### 37598-5 #### SAMUEL RUIZ ([id number]) [facility] ([facility]) [address] [facility], [place] [address]JWP With P-5'-P [Catalytic activity/Vol]27 U/LNormal9-39 Providence HospitalComment on above:Performed By: #### 61389-9 #### SAMUEL RUIZ ([id number]) [facility] ([facility]) [address] [facility], [place] [address]Ctwrqidpl [Mass/Vol]0.6 mg/dLNormal0.0-1.2UnMedina HospitalComment on above:Performed By: #### 08442-5 #### SAMUEL RUIZ ([id number]) [facility] ([facility]) [address] [facility] [place], [place] [address]Uldfdub [Mass/Vol]8.5 mg/dLLow8.6-10.3Providence HospitalComment on above:Performed By: #### 02395-7 #### SAMUEL RUIZ ([id number]) [facility] ([facility]) [address] [facility], [place] [address]Skklwjcw [Moles/Vol]105 mmol/UNidqga15-004DireixsbpyMedina HospitalComment on above:Performed By: #### 47149-2 #### SAMUEL RUIZ (58866) [facility] ([facility]) [address] [place], [place] [address]YO1 [Moles/Vol]26 mmol/ZSamgkr71-79ZjquqpbbwnMedina HospitalComment on above:Performed By: #### [id number] #### SAMUEL RUIZ ([id number]) [facility] ([facility]) [address] [place], [place] [address]Wteouxajoz [Mass/Vol]0.90 mg/dLNormal0.50-1.05UnMedina HospitalComment on above:Performed By: #### [id number] #### SAMUEL RUIZ ([id number]) [facility] ([facility]) [address] [place], [place] [address]Qjhoxsonbe filtration rate/1.73 sq M.visahdfbq32 mL/min/1.73m*2Normal>60UnMedina HospitalComment on above:Result Comment: Calculations of estimated GFR are performed using the 2020 CKD-EPI Study Refit equation without the race variable for the IDMS-Traceable creatinine methods. https://jasn.asnjournals.org/content/early//ASN.[email or web address] By: #### 80243-3 #### SAMUEL RUIZ ([id number]) [facility] ([facility]) [address] [place], [place] [address]Acenvrb [Mass/Vol]95 mg/aIJcjkzs93-41UbbvtxdzlzProvidence HospitalComment on above:Performed By: #### 53930-9 #### SAMUEL RUIZ ([id number]) [facility] ([facility]) [address] [place], [place] [address]Dwrcbhtdk [Moles/Vol]4.2 mmol/LNormal3.5-5.3Providence HospitalComment on above:Performed By: #### 33508-8 #### SAMUEL RUIZ ([id number]) [facility] ([facility]) [address] [place], [place] [address]Iagnhdz [Mass/Vol]5.6 g/dLLow6.4-8.2UnMedina HospitalComment on above:Performed By: #### 13563-7 #### SAMUEL RUIZ ([id number]) [facility] ([facility]) [address] [place], [place] [address]Iqvuiz [Moles/Vol]137 mmol/PCuzutw108-947VzrmzrmrdmMedina HospitalComment on above:Performed By: #### 80568-1 #### SAMUEL RUIZ ([id number]) [facility] ([facility]) [address] [place], [place] [address]Yjjw nitrogen [Mass/Vol]13 mg/dLNormal6-23UnMedina HospitalComment on above:Performed By: #### 02955-7 #### SAMUEL RUIZ ([id number]) [facility] ([facility]) [address] [place], [place] [address]Qsdrfng Test strip manual (Bld) [Mass/Vol]on 71-32-2489Dmibrdg [Mass/Vol]91 mg/dL74 - 99 mg/dLUnCentervilleInterpretation and review of laboratory resultsNoOhioHealth Pickerington Methodist HospitalGlucose [Mass/Vol]91 mg/lKSkvdsf09-13YxzakfrcywMedina HospitalComment on above:Performed By: #### 2341-6 #### SAMUEL RUIZ ([id number]) [facility] ([facility]) [address] [place], [place] [address]GH Coag (PPP) [Time]on 06-04-9287JSP Coag (PPP) [Relative time]1.3 {INR}High0.9 - 1.1UnCentervilleInterpretation and review of laboratory resultsAbnoAvita Health SystemUnCentervilleINR Coag (PPP) [Relative time]1.3High0.9-1.1[facility] Melissa Medical CenterComment on above:Performed By: #### 5902-2 #### SAMUEL RUIZ ([id number]) [facility] ([facility]) [address] [place], [place] [address]Ujblflw-ROCvd 02-98-1076HO Coag (PPP) [Time]13.[address] Charles HospitalUS GUIDED RF ABLATION LIVERon 26-37-2408QD GUIDED RF ABLATION LIVERInterpreted By: Дмитрий Flores, and Ashley Roman STUDY: CT GUIDED RF ABLATION LIVER; US GUIDED RF ABLATION LIVER; 01/05/2025 9:30 am; 01/05/2025 9:20 am INDICATION: Signs/Symptoms:liver lesion. COMPARISON: MRI abdomen dated 10/24/2024 ACCESSION NUMBER(S): [id number]; [id number] ORDERING CLINICIAN: RAMAN NICHOLAS TECHNIQUE: INTERVENTIONALIST(S): MD Abel Teran MD [...] findings as stated. Performed and dictated at [facility]. MACRO: None. Signed by: Дмитрий Flores 01/06/2025 8:37 AM Dictation workstation: [id number] Osteopathic HospitalCreatinineon 57-42-1683Jmpkdhgfbu [Mass/Vol]1.02 mg/dLNormal0.60-1.20The [facility] Physician GroupComment on above:Performed By: #### CREAT ####[address] [address] USACreatinine Clr Calc Hvzkaaea51.36NormOrlando Health - Health [facility] Physician [facility] Mississippi Medical CenterComment on above:Result Comment: PERFORMED BY:[address] [place], [place] [id number] MEDICAL DIRECTORTAVIA SCHMIDT M.D. Performed By: #### CREAT ####[address] [address] USAGFR/1.73 sq M.predicted MDRD (S/P/Bld) [Vol rate/Area]mL/min/{1.73_m2}NormalThe Adventhealth Physician GroupComment on above: Performed By: #### CREAT ####[address] [address] USACreatinine [Mass/Vol]on 89-67-1995Dwtpixfths (U) [Mass/Vol]1.02 mg/dL0.60 - 1.20 mg/dLNOMS HealthcareCREATININE CLR CALC PHARMACY 54.36NOMS HealthcareESTIMATED GFRmL/MinNOMS HealthcareNOMS HealthcareScan and CBCon 21-15-9700Kivkviojgdcl Ql (Bld)ModerateNormalThe [facility] Group Comment on above:Performed By: #### SCAN CBC ####[place] [address] USABasophils (Bld) [#/Vol]0.0 10*3/uL Normal0.0-0.2The [facility]health Physician GroupComment on above:Performed By: #### SCAN CBC ####[place] [address] USABasophils/100 WBC (Bld)0.5 %Normal.The [facility]health Physician GroupComment on above:Performed By: #### SCAN CBC ####[place] [address] USAEosinophils (Bld) [#/Vol]0.3 10*3/uLNormal0.0-0.45 The [facility]health Physician GroupComment on above:Performed By: #### SCAN CBC ####[place] [address] [place] Eosinophils/100 WBC (Bld)14.5 %Normal.The [facility] Physician GroupComment on above:Performed By: #### SCAN CBC ####[place] [address] USAErythrocyte distribution width (RBC) [Ratio]19.2 % High11.9-15.3The [facility] Physician GroupComment on above:Performed By: #### SCAN CBC ####[place] [address] USAHematocrit (Bld) [Volume fraction]27.9 %Low34.0-46.4The [facility]health Physician GroupComment on above:Performed By: #### SCAN CBC ####[place] [address] USAHemoglobin (Bld) [Mass/Vol]9.2 g/dLLow 11.8-15.4The [facility] Physician GroupComment on above:Performed By: #### SCAN CBC ####[place] [address] [place] HypochromasiaSlightNormAultman Orrville Hospitale Adventhealth Physician GroupComment on above:Performed By: #### SCAN CBC ####[place] [address] USALymphocytes (Bld) [#/Vol]0.5 10*3/uLLow1.00-4.8The [facility] Physician GroupComment on above:Performed By: #### SCAN CBC ####[place] [address] USALymphocytes/100 WBC (Bld)21.7 %Normal.The [facility]health Physician GroupComment on above:Performed By: #### SCAN CBC ####[address] Watson StreetMCH (RBC) [Entitic mass]27.0 atIdgpwk85.7-34.3The [facility]health Physician GroupComment on above:Performed By: #### SCAN CBC ####[address]V (RBC) [Entitic vol]82.2 fLNormal 80-100The [facility] Physician GroupComment on above:Performed By: #### SCAN CBC ####[place] [address] USAMean Corpuscular HGB Conc32.9 g/pHDiaaqp15.0-35.0The [facility] Physician GroupComment on above:Performed By: #### SCAN CBC ####[place] [address] USAMicrocytosisModerateNormalThSt. Luke's Fruitland Physician GroupComment on above:Performed By: #### SCAN CBC ####[place] [address] USAMonocytes (Bld) [#/Vol]0.5 10*3/uLNormal0.0-0.8The [facility] Physician GroupComment on above: Performed By: #### SCAN CBC ####[place] [address] USAMonocytes/100 WBC (Bld)20.4 %Normal.The [facility] Physician GroupComment on above:Performed By: #### SCAN CBC ####[address] [address] USANeutrophils (Bld) [#/Vol]1.0 10*3/uLLow1.8-7.7The [facility] Physician GroupComment on above: Performed By: #### SCAN CBC ####[address] [address] USANeutrophils/100 WBC (Bld)42.9 %Normal.The [facility] Physician GroupComment on above:Performed By: #### SCAN CBC ####[address] [address] USANRBC%0.1 /100{WBC} Normal0-0.5The [facility] Physician GroupComment on above:Performed By: #### SCAN CBC ####[address] [address] [place] OvalocytesSlightNormOrlando Health - Health Central Hospital Physician GroupComment on above:Performed By: #### SCAN CBC ####[address] [address] USAPlatelet EstimateDecreasedNormalShorePoint Health Port Charlotte Physician [facility] Comment on above:Performed By: #### SCAN CBC ####[address] [address] USAPlatelet mean volume (Bld) [Entitic vol]7.8 fLNormal6.3-10.7The [facility] Physician GroupComment on above:Performed By: #### SCAN CBC ####[address] [address] USAPlatelet MorphologyNormalNormalNoAtrium Health Cabarrus Physician [facility] Comment on above:Result Comment: PERFORMED BY:[address] [place], [place] [phone] MEDICAL DIRECTORTAVIA SCHMIDT M.D.Performed By: #### SCAN CBC ####[address] [place] [address] USAPlatelets (Bld) [#/Vol]64 10*3/yQOgz128-255Kmt [facility] Physician GroupComment on above: Performed By: #### SCAN CBC ####[place] [address] [place] [address] USAPolychromasiaSlightNormalThe [facility]health Physician GroupComment on above:Performed By: #### SCAN CBC ####[place] [address] USARBC (Bld) [#/Vol]3.40 10*6/uLLow 3.60-5.00The [facility] Physician GroupComment on above:Performed By: #### SCAN CBC ####[place] [address] USAWBC (Bld) [#/Vol]2.4 10*3/uLLow3.8-11.6The [facility] Physician GroupComment on above:Performed By: #### SCAN CBC ####[place] [address] USAFREE K+L LT CHAINS, QN, Son 84-99-8426AUTC KAPPA LIGHT CHAINS, Smg/LLow3.3 - 19.4 mg/LNOMS HealthcareFREE LAMBDA LIGHT CHAINS, S mg/LLow5.7 - 26.3 mg/LNOMS HealthcareInterpretation and review of laboratory resultsAbnormalNOMS HealthcareKAPPA/LAMBDA RATIO, S.NOMS HealthcareComment on above:Unable to calculate result since non-numeric result obtained for component test. Performed at: - [facility] [id number] Aeronautical Design Engineer: Lang Knight PhD, Phone: [phone] [facility] HealthcareIMMUNOGLOBULINS A/G/M, QN, SERon 58-39-6894ZNRUTTDUVGDNIF A, SERUMmg/dLLow87 - 352 mg/dLNOMS HealthcareComment on above:Result confirmed on concentration.IMMUNOGLOBULIN G313 mg/fSPmj521 - 1602 mg/dLNOPR Healthcare IMMUNOGLOBULIN M, SERUMmg/dLLow26 - 217 mg/dLNOMS HealthcareComment on above: Result confirmed on concentration. Performed at: Proenza Schouer - [facility] [address] [id number] Aeronautical Design Engineer: Lang Knight PhD, Phone: [phone] Interpretation and review of laboratory resultsAbformerly Western Wake Medical CenterAlanine aminotransferase [Enzymatic activity/volume] in Serum or PlasmaOrdered By: Fabiola Marinelli on 55-07-5213VVG [Catalytic activity/Vol]Alanine aminotransferase [Enzymatic activity/volume] in Serum or Plasma7-52Salem City HospitalAlbumin [Mass/volume] in Serum or Plasma by Bromocresol green (BCG) dye binding methoOrdered By: Fabiola Marinelli on 81-44-8781Atprmrd BCG dye [Mass/Vol]Albumin [Mass/volume] in Serum or Plasma by Bromocresol green (BCG) dye binding metho3.5-5.7FPremier HealthAlkaline phosphatase [Enzymatic activity/volume] in Serum or PlasmaOrdered By: Fabiola Marinelli on 62-30-4329CLP [Catalytic activity/Vol]Alkaline phosphatase [Enzymatic activity/volume] in Serum or Zeqoil80-921IbttnugyzSalem City Hospital Aspartate aminotransferase [Enzymatic activity/volume] in Serum or PlasmaOrdered By: Fabiola Marinelli on 19-60-0928USG [Catalytic activity/Vol]Aspartate aminotransferase [Enzymatic activity/volume] in Serum or Jyqpum89-51WdmvvhohxSalem City HospitalBand form neutrophils/100 WBC Manual cnt (Bld)Ordered By: Fabiola Marinelli on 88-60-5156Msfc form neutrophils/100 WBC (Bld)Peripheral white blood cell differential % bands, microscopic examHigh060 Thomas StreetBand form neutrophils/100 leukocytes in Blood by Manual countOrdered By: Fabiola Marinelli on 29-43-8728Jbch form neutrophils/100 WBC (Bld)9 %High060 Thomas StreetComment on above:Performed By: #### CMP, TSH3, DIFF CBC ####[facility] Gqx[address] Bilirubin.total [Mass/volume] in Serum or PlasmaOrdered By: Fabiola Marinelli on 67-22-8139Obrumlvtm [Mass/Vol]Bilirubin.total [Mass/volume] in Serum or Plasma 0.3-1.0Sal[facility] City HospitalCalcium [Mass/volume] in Serum or Plasma Ordered By: Fabiola Marinelli on 50-77-8586Hrhqdre [Mass/Vol]Calcium [Mass/volume] in Serum or Plasma8.6-10.3FPremier HealthCarbon dioxide, total [Moles/volume] in Serum or PlasmaOrdered By: Fabiola Marinelli on 4027QE2 [Moles/Vol]Carbon dioxide, total [Moles/volume] in Serum or Ynwaut95.0-31.0 [facility] City HospitalChloride [Moles/volume] in Serum or Plasma Ordered By: Fabiola Marinelli on 90-56-4001Fcuyjtob [Moles/Vol]Chloride [Moles/volume] in Serum or Ofaqvq21-393QthmonkdzSalem City HospitalComprehensive Metabolic Panelon 45-66-4436Jhhllhi [Mass/Vol]3.7 g/dLNormal3.5-5.7The [facility] Physician GroupComment on above:Performed By: #### CMP, TSH3, DIFF CBC ####[place] [address] [place] Albumin/Globulin [Mass ratio]1.9 {ratio}NormalThe [facility] Comment on above:Performed By: #### CMP, TSH3, DIFF CBC ####[place] [address] USAALP [Catalytic activity/Vol]83 U/FVbcgdx68-067Wvh [facility] Physician [facility] Mississippi Medical CenterComment on above:Performed By: #### CMP, TSH3, DIFF CBC ####[place] [address] USAALT [Catalytic activity/Vol]14 U/LNormal7-52The [facility] Physician [facility] Medical CenterComment on above:Performed By: #### CMP, TSH3, DIFF CBC ####[place] [address] USAAnion gap [Moles/Vol] 9.3 mmol/LNormal6.0-15.0The [facility]health Physician GroupComment on above:Performed By: #### CMP, TSH3, DIFF CBC ####[place] [address] USAAST [Catalytic activity/Vol]24 U/DVljrsd76-05Jko [facility] Physician GroupComment on above:Performed By: #### CMP, TSH3, DIFF CBC ####[address] [address] [place] Bilirubin [Mass/Vol]0.7 mg/dLNormal0.3-1.0The [facility]health Physician GroupComment on above:Performed By: #### CMP, TSH3, DIFF CBC ####[place] [address] USACalcium [Mass/Vol]9.2 mg/dLNormal 8.6-10.3The [facility]health Physician GroupComment on above:Performed By: #### CMP, TSH3, DIFF CBC ####[place] [address] USAChloride [Moles/Vol]103 mmol/QGisenn70-414Jfb [facility] Comment on above:Performed By: #### CMP, TSH3, DIFF CBC ####[address] [address] USACO2 [Moles/Vol]29.0 mmol/L Nsifok27.0-31.0The [facility]health Physician GroupComment on above:Performed By: #### CMP, TSH3, DIFF CBC ####[address] [address] USACreatinine [Mass/Vol]1.00 mg/dLNormal0.60-1.20The [facility] Physician GroupComment on above:Performed By: #### CMP, TSH3, DIFF CBC ####[address] [address] [place] Creatinine Clr Calc Iaxvofhd31.15NormalThe [facility]health Physician GroupComment on above:Performed By: #### CMP, TSH3, DIFF CBC ####[address] [address] USAGFR/1.73 sq M.predicted MDRD (S/P/Bld) [Vol rate/Area]mL/min/{1.73_m2}NormalThe [facility]health Physician GroupComment on above:Performed By: #### CMP, TSH3, DIFF CBC ####[address] [address] USAGlobulin (S) [Mass/Vol]1.9 g/dLNormal The [facility]health Physician GroupComment on above:Performed By: #### CMP, TSH3, DIFF CBC ####[place] [address] [place] Glucose [Mass/Vol]107 mg/kCQijp35-196Lnm [facility] Physician GroupComment on above:Result Comment: Random Glucose Reference Range is dependent on time and content of last meal. Glucose of more than 200 mg/dL in a nonstressed, ambulatory subject supports the diagnosis of Diabetes Mellitus. ADA recommended reference rangePerformed By: #### CMP, TSH3, DIFF CBC ####[address] [address] USAPotassium [Moles/Vol]4.3 mmol/L Normal3.5-5.1The [facility] Physician GroupComment on above:Performed By: #### CMP, TSH3, DIFF CBC ####[address] [address] USAProtein [Mass/Vol]5.6 g/dLLow6.4-8.9The [facility] Comment on above:Performed By: #### CMP, TSH3, DIFF CBC ####[address] [address] USASodium [Moles/Vol]137 mmol/L Gstirj507-800Qnu [facility] Physician GroupComment on above:Performed By: #### CMP, TSH3, DIFF CBC ####[address] [address] USAUrea nitrogen [Mass/Vol]17 mg/dLNormal7-25The [facility] Physician GroupComment on above:Performed By: #### CMP, TSH3, DIFF CBC ####[address] [address] USACreatinine [Mass/volume] in Serum or PlasmaOrdered By: Fabiola Marinelli on 61-70-8486Wdidjmpkfw [Mass/Vol]Creatinine [Mass/volume] in Serum or Plasma0.60-1.20Salem City HospitalDacrocytes [Presence] in Blood by Light microscopyOrdered By: Fabiola Marinelli on 48-42-9362Tyifekyweb LM Ql (Bld)Teardrop cell detectionSalem City HospitalDiff and CBCon 60-90-0280Qnsnstibpeov Ql (Bld)Slight NormalThe [facility] Physician GroupComment on above:Performed By: #### CMP, TSH3, DIFF CBC ####[address] [address] USAEosinophils/100 WBC (Bld)19 %High1-3The [facility] Comment on above:Performed By: #### CMP, TSH3, DIFF CBC ####[address] [address] USAErythrocyte distribution width (RBC) [Ratio]19.6 %High11.9-15.3The [facility] Physician GroupComment on above: Performed By: #### CMP, TSH3, DIFF CBC ####[address] [address] USAGiant Platelet Tally8 /100{WBC}NormalThe [facility]health Physician GroupComment on above:Performed By: #### CMP, TSH3, DIFF CBC ####[address] [address] [place] Hematocrit (Bld) [Volume fraction]28.6 %Low34.0-46.4The [facility] Physician GroupComment on above:Performed By: #### CMP, TSH3, DIFF CBC ####[address] [address] USAHemoglobin (Bld) [Mass/Vol]9.4 g/dLLow11.8-15.4The [facility] Physician GroupComment on above: Performed By: #### CMP, TSH3, DIFF CBC ####[address] [address] USALymphocytes/100 WBC (Bld)30 %Ikimcp98-85Wth [facility] Physician GroupComment on above:Performed By: #### CMP, TSH3, DIFF CBC ####[address] [address] [facility] (RBC) [Entitic mass]27.3 tpUmllbb92.7-34.3The [facility] Physician GroupComment on above:Performed By: #### CMP, TSH3, DIFF CBC ####[address] [address] [facility] (RBC) [Entitic vol]83.1 fLNormal 80-100The [facility] Physician GroupComment on above:Performed By: #### CMP, TSH3, DIFF CBC ####[place] [address] USAMean Corpuscular HGB Conc32.9 g/iSZrlstg18.0-35.0The [facility] Physician GroupComment on above:Performed By: #### CMP, TSH3, DIFF CBC ####[place] [address] [place] Monocytes/100 WBC (Bld)7 %Normal2-11The [facility] Physician GroupComment on above:Performed By: #### CMP, TSH3, DIFF CBC ####[place] [address] USAOvalocytesSlightNoAtrium Health Cabarrus Physician GroupComment on above:Performed By: #### CMP, TSH3, DIFF CBC ####[place] [address] USAPlatelet EstimateDecreasedNormalNoAtrium Health Cabarrus Physician GroupComment on above: Performed By: #### CMP, TSH3, DIFF CBC ####[address] [address] USAPlatelet mean volume (Bld) [Entitic vol]8.2 fL Normal6.3-10.7The [facility] Physician GroupComment on above:Performed By: #### CMP, TSH3, DIFF CBC ####[place] [address] USAPlatelet MorphologyNormalNormalNormOrlando Health - Health [facility] Hospital Physician Group Comment on above:Result Comment: PERFORMED BY:[address] [place] [phone] MEDICAL DIRECTORTAVIA SCHMIDT M.D.Performed By: #### CMP, TSH3, DIFF CBC ####[address] [address] [place] Platelets (Bld) [#/Vol]62 10*3/mMWbx422-375Ylv [facility] Physician GroupComment on above:Performed By: #### CMP, TSH3, DIFF CBC ####[address] [address] USAPoikilocytosisSHaywood Regional Medical Center Physician GroupComment on above:Performed By: #### CMP, TSH3, DIFF CBC ####[address] [address] USA PolychromasiaSHaywood Regional Medical Center Physician GroupComment on above:Performed By: #### CMP, TSH3, DIFF CBC ####[address] [address] USARBC (Bld) [#/Vol]3.44 10*6/uLLow3.60-5.00The [facility] Physician GroupComment on above:Performed By: #### CMP, TSH3, DIFF CBC ####[address] [address] [place] Segmented neutrophils/100 WBC (Bld)36 %Vmd63-49Hbd [facility] Comment on above:Performed By: #### CMP, TSH3, DIFF CBC ####[address] [address] USATear Drop CellsSHaywood Regional Medical Center Physician GroupComment on above:Performed By: #### CMP, TSH3, DIFF CBC ####[address] [address] USAWBC (Bld) [#/Vol]2.0 10*3/uLLow3.8-11.6The [facility] Physician GroupComment on above:Performed By: #### CMP, TSH3, DIFF CBC ####[address] [address] USAEosinophils/100 WBC Manual cnt (Bld) Ordered By: Fabiola Marinelli on 95-34-5904Wasbjwepjew/100 WBC (Bld)Eosinophils/100 leukocytes in Blood by Manual countHigh1-3FPremier Health Erythrocyte distribution width Auto (RBC) [Ratio]Ordered By: Fabiola Yves on 39-09-2241Wsowujxwzaq distribution width (RBC) [Ratio]Erythrocyte distribution width [Ratio] by Automated brtnuFker58.9-15.3FPremier Health Ferritinon 68-12-8966Crxxvzoq [Mass/Vol]9.9 ng/mLLow11.0-306.8The [facility] Physician GroupComment on above:Result Comment: PERFORMED BY:[address]PATRICIA CHERRYErnaROMA, [place] [phone] MEDICAL DIRECTORTAVIA SCHMIDT M.D.Performed By: #### KAPPA ####[facility] ,#### NERY, FE and TIBC, MG ####[address] [address] USAFree K+L LT Chains, Qn, Son 68-41-8361Xoej [place] Light Chains, S<0.7Low3.3-19.4The [facility] Physician GroupComment on above:Performed By: #### KAPPA ####[facility] ,#### NERY, FE and TIBC, MG ####[place] [address] USAFree Lambda Light Chains, S<1.5Low5.7-26.3The [facility] Physician GroupComment on above:Performed By: #### KAPPA ####[facility] ,#### NERY, FE and TIBC, MG ####[place] [address] [place]/Lambda Ratio, SNormal.The [facility] Physician GroupComment on above:Result Comment: Unable to calculate result since non-numeric result obtained for component test. Performed at: - [facility] [address] [id number] Aeronautical Design Engineer: Lang Knight PhD, Phone: [phone] BY:[facility] [place]TI[place], [place] [phone] MEDICAL DIRECTORMOSRI SCHMIDT M.D.Performed By: #### KAPPA ####[facility] ,#### NERY, FE and TIBC, MG ####[facility] [address] [place] [address] USAGiant platelets/100 leukocytes [Ratio] in Blood by Manual countOrdered By: Fabiola aMrinelli on 12-29-2024 Giant platelets/100 WBC Manual cnt (Bld) [Ratio]Giant platelets/100 leukocytes [Ratio] in Blood by Manual countSalem City HospitalGlobulin Calc (S) [Mass/Vol]Ordered By: Fabiola Marinelli on 45-45-2051Czuwulrk (S) [Mass/Vol]Serum globulin measurement by calculation (mass/volume)Salem City HospitalGlucose [Mass/volume] in Serum or PlasmaOrdered By: Fabiola Marinelli on 43-30-8654Otiulqp [Mass/Vol]Glucose [Mass/volume] in Serum or OpcfkwSuqc80-675 Salem City HospitalHematocrit Auto (Bld) [Volume fraction]Ordered By: Fabiola Marinelli on 52-02-2595Zfkxlvutpw (Bld) [Volume fraction]Hematocrit [Volume Fraction] of Blood by Automated lrsqoCgf94.0-46.4FPremier HealthHemoglobin [Mass/volume] in BloodOrdered By: Fabiola Marinelli on 12-29-2024 Hemoglobin (Bld) [Mass/Vol]Hemoglobin [Mass/volume] in SkpfaKoa60.8-15.4 [facility] City HospitalINR in Platelet poor plasma by Coagulation assayOrdered By: Yinka Lopez on 77-16-2547MDY Coag (PPP) [Relative time]INR in Platelet poor plasma by Coagulation assaySalem City Hospital Immunoglobulins A/G/M, Qn, Seron 63-85-9697Tspqingrqqmuwa A, Serum<5Ydh04-867Mrj [facility] Physician GroupComment on above:Result Comment: Result confirmed on concentration.Performed By: #### IMM OSCAR ####[facility] , Immunoglobulin G313 mg/nOOjs065-0390Cew [facility] Physician GroupComment on above:Performed By: #### IMM OSCAR ####[facility] ,Immunoglobulin M, Serum<8Xfy00-603Wyv [facility] Physician GroupComment on above:Result Comment: Result confirmed on concentration. Performed at: - [facility] [address] [id number] Aeronautical Design Engineer: Lang Knight PhD, Phone: [phone] BY:[address] [place], [place] [phone] MEDICAL DIRECTORMOSRI SCHMIDT M.D. Performed By: #### IMM OSCAR ####[facility] ,Iron and TIBC Profileon 12-29-2024% Iron Saturation7.8 %Vgt93-39RhnMississippi State HospitalComment on above:Performed By: #### KAPPA ####[facility] ,#### NERY, FE and TIBC, MG ####[facility] [place] [address] USAIron [Mass/Vol]36 ug/kUFns02-295Tdj Special Care HospitalComment on above: Performed By: #### KAPPA ####[facility] ,#### NERY, FE and TIBC, MG ####[facility] [address] [place] [address] USATotal Iron Binding Pbrzdqna365 ug/oKAmgj632-108Rud [facility] GroupComment on above:Performed By: #### KAPPA ####[facility] ,#### NERY, FE and TIBC, MG ####[facility] [place] [address] [place] Transferrin [Mass/Vol]330 mg/wRAtrzkh816-346Wiq [facility] Physician GroupComment on above:Performed By: #### KAPPA ####[facility] ,#### NERY, FE and TIBC, MG ####[facility] [address] [place] [address] USALeukocytes [#/volume] corrected for nucleated erythrocytes in Blood by Automated counOrdered By: Fabiola Marinelli on 61-43-4085GAT corrected for nucl RBC Auto (Bld) [#/Vol]Leukocytes [#/volume] corrected for nucleated erythrocytes in Blood by Automated counLow3.8-11.6FPremier Health Lymphocytes/100 WBC Manual cnt (Bld)Ordered By: Fabiola Marinelli on 12-29-2024 Lymphocytes/100 WBC (Bld)Lymphocytes/100 leukocytes in Blood by Manual count 18-42[facility] Auto (RBC) [Entitic mass]Ordered By: Fabiola Marinelli on 87-76-1693QUT (RBC) [Entitic mass]MCH [Entitic mass] by Automated count24.7-34.3FSumma Health Wadsworth - Rittman Medical CenterHC Auto (RBC) [Mass/Vol]Ordered By: Fabiola Marinelli on 99-02-1847BFBF (RBC) [Mass/Vol]MCHC [Mass/volume] by Automated count32.0-35.0[facility] CenterV Auto (RBC) [Entitic vol] Ordered By: Fabiola Marinelli on 29-78-1565AHG (RBC) [Entitic vol]MCV [Entitic volume] by Automated qjmpu39-999YusvlrcslSalem City HospitalMagnesium [Mass/volume] in Serum or PlasmaOrdered By: Fabiola Marinelli on 64-60-9180Kvqtemxgl [Mass/Vol] Magnesium [Mass/volume] in Serum or PlasmaLow1.9-2.7FPremier HealthMagnesium [Mass/Vol]1.7 mg/dLLow1.9-2.7FPremier Health Comment on above:Performed By: #### KAPPA ####[facility] ,#### NERY, FE and TIBC, MG ####[facility] [id number] [place] [address] USAMonocytes/100 WBC Manual cnt (Bld)Ordered By: Fabiola Marinelli on 12-29-2024 Monocytes/100 WBC (Bld)Monocytes/100 leukocytes in Blood by Manual count2-11 Salem City HospitalNo Panel InformationOrdered By: Fabiola Marinelli on 12-29-2024> 60.0 mL/MinSalem City Hospital55.15Salem City HospitalPT Coag (Bld) [Time]on 66-23-1450DJJ Coag (PPP) [Relative time]1.2 {INR}[facility] HealthcareComment on above:INR Therapeutic Range A) Pre- and Peroperative OAT started two weeks before surgery. NOT HIP SURGERY: 1.5 - 2.5 HIP SURGERY: 2 - 3 B) Primary and secondary prevention of venous THROMBOSIS: 2 - 3 C) Active venous thrombosis, pulmonary embolism and prevention of recurrent venous thrombosis: 2 - 3 D) Prevention of arterial thromboembolism including patients with mechanical heart valves: 3 - 4.5 Interpretation and review of laboratory resultsAbnormalCACHE VALLEY [facility] HealthcarePT Coag (PPP) [Time]13.8 sHigh9.0 - 12.9 [facility] HealthcareComment on above:A hematocrit value greater than 55% may lead to inaccurate results in coagulation testing. Patients having hematocrit values >55% require a special collection tube for coagulation studies. Please contact the laboratory at [phone] for redraw instructions. [facility] HealthcarePlatelet mean volume Auto (Bld) [Entitic vol]Ordered By: Fabiola Marinelli on 53-32-0524Hnrdmsxn mean volume (Bld) [Entitic vol]Platelet mean volume [Entitic volume] in Blood by Automated count6.3-10.7FPremier HealthPlatelets Auto (Bld) [#/Vol]Ordered By: Fabiola Marinelli on 33-34-1215Xdjhfhvbn (Bld) [#/Vol]Platelets [#/volume] in Blood by Automated xgrskPyr771-932WuacbnyzeSalem City HospitalPotassium [Moles/volume] in Serum or PlasmaOrdered By: Fabiola Marinelli on 96-76-5130Sgyejsqbr [Moles/Vol]Potassium [Moles/volume] in Serum or Plasma3.5-5.1FPremier HealthProtein [Mass/volume] in Serum or PlasmaOrdered By: Fabiola Marinelli on 71-79-6277Ibdjuwe [Mass/Vol]Protein [Mass/volume] in Serum or PlasmaLow6.4-8.9[facility] Prothrombin Time INRon 46-31-6057AHY Coag (PPP) [Relative time]1.2 {INR}Normal The [facility] Physician GroupComment on above:Result Comment: INR Therapeutic Range A) Pre- and Peroperative OAT started two weeks before surgery. NOT HIP SURGERY: 1.5 - 2.5 HIP SURGERY: 2 - 3 B) Primary and secondary prevention of venous THROMBOSIS: 2 - 3 C) Active venous thrombosis, pulmonary embolism and prevention of recurrent venous thrombosis: 2 - 3 D) Prevention of arterial thromboembolism including patients with mechanical heart valves: 3 - 4.5PERFORMED BY:[id number] [place], [place] [phone] MEDICAL DIRECTORTAVIA SCHMIDT M.D. Performed By: #### PT ####[id number] [place] [address] USAPT Coag (PPP) [Time]13.8 sHigh9.0-12.9The [facility]health Physician GroupComment on above:Result Comment: A hematocrit value greater than 55% may lead to inaccurate results in coagulation testing. Patients having hematocrit values >55% require a special collection tube for coagulation s tudies. Please contact the laboratory at [phone] for redraw instructions. Performed By: #### PT ####[facility] [place] [address] USAProthrombin time (PT)Ordered By: Yinka Lopez on 17-03-9671CM Coag (PPP) [Time]Prothrombin time (PT)High9.0-12.9Sal[facility] City HospitalRBC Auto (Bld) [#/Vol]Ordered By: Fabiola Marinelli on 12-29-2024 RBC (Bld) [#/Vol]Erythrocytes [#/volume] in Blood by Automated countLow3.60-5.00 [facility] Instituteegmented neutrophils/100 WBC Manual cnt (Bld) Ordered By: Fabiola Marinelli on 25-31-5524Gliwwpzmj neutrophils/100 WBC (Bld)Manual blood segmented neutrophils/100 beukhciuswPen21-06BufturggpRiverview Health Instituteerum free kappa light chain measurementOrdered By: Fabiola Marinelli on 09-90-4918Dgrmmxfbdtojls light chains.kappa.free (S) [Mass/Vol]Immunoglobulin light chains.kappa.free [Mass/volume] in SerumLow3.3-19.4FPremier HealthImmunoglobulin light chains.kappa.free (S) [Mass/Vol]<0.7 mg/LLow 3.3-19.4FSouthview Medical Centererum immunoglobulin free kappa light chains/immunoglobulin free lambda light chainsOrdered By: Fabiola Marinelli on 89-56-6217Nydvotyqpswelz light chains.kappa.free/Immunoglobulin light chains.lambda.free (S) [Mass ratio]Immunoglobulin light chains.kappa.free/Immunoglobulin light chains.lambda.free [Mass.[facility] City HospitalImmunoglobulin light chains.kappa.free/Immunoglobulin light chains.lambda.free (S) [Mass ratio]See comment.[facility] Instituteerum or plasma IgA measurement (mass/volume)Ordered By: Fabiola Marinelli on 97-06-0207KtD [Mass/Vol]IgA [Mass/volume] in Serum or ZnprqrKee14-725NvwltscokRiverview Health Instituteerum or plasma IgG measurement (mass/volume)Ordered By: Fabiola Marinelli on 13-98-0795OxA [Mass/Vol]IgG [Mass/volume] in Serum or PlasmaLow 586-1602Riverview Health Instituteerum or plasma IgM measurement (mass/volume)Ordered By: Fabiola Marinelli on 05-92-6973VlD [Mass/Vol]IgM [Mass/volume] in Serum or ZlxpemSzb85-253WadylckriRiverview Health Instituteerum or plasma albumin/globulin mass ratioOrdered By: Fabiola Marinelli on 14-43-9909Zwwesnl/Globulin [Mass ratio]Serum or plasma albumin/globulin mass ratioRiverview Health Instituteerum or plasma anion gap determinationOrdered By: Fabiola Marinelli on 91-73-8788Enwbs gap [Moles/Vol]Serum or plasma anion gap determination6.0-15.0 [facility] Instituteerum or plasma immunoglobulin free lambda light chains measurement (mass/volume)Ordered By: Fabiola Marinelli on 12-29-2024 Immunoglobulin light chains.lambda.free [Mass/Vol]Immunoglobulin light chains.lambda.free [Mass/volume] in Serum or PlasmaLow5.7-26.3FPremier HealthImmunoglobulin light chains.lambda.free [Mass/Vol]mg/LLow5.7-26.3 [facility] Instituteodium [Moles/volume] in Serum or PlasmaOrdered By: Fabiola Marinelli on 90-64-9715Uokxvc [Moles/Vol]Sodium [Moles/volume] in Serum or Nxzegv921-927TrjhgiubqSalem City HospitalThyrotropin [Units/volume] in Serum or PlasmaOrdered By: Yinka Lopez on 43-58-1266RYW QnThyrotropin [Units/volume] in Serum or Plasma0.45-5.33Sal[facility] City HospitalTS Qn5.13 m[IU]/LNormal0.45-5.33Sal[facility] City HospitalComment on above: Result Comment: PERFORMED BY:[facility] [place], [place] [phone] MEDICAL DIRECTORTAVIA HORAN M.D.Performed By: #### CMP, TSH3, DIFF CBC ####[facility] [place] [address] USAUrea nitrogen [Mass/volume] in Serum or PlasmaOrdered By: Fabiola Marinelli on 37-42-5092Ayld nitrogen [Mass/Vol]Urea nitrogen [Mass/volume] in Serum or Plasma7-25[facility] WBC Auto (Bld) [#/Vol]Ordered By: Fabiola Marinelli on 00-64-8679SDI (Bld) [#/Vol] Leukocytes [#/volume] in Blood by Automated countLow3.8-11.6FPremier HealthECG 12 leadon 31-30-5679R-fibKindred Hospital LimaEC 12 lead ECGon 09-66-0245GUN 12 lead ECGNoOhioHealth Grove City Methodist Hospitale [facility] Physician ZbyjqXxS7k (Bld) [Mass fraction]on 13-70-5057Yhzeiofoivhilg and review of laboratory results NormalFormerly Yancey Community Medical CenterPOCT glycosylated hemoglobin (Hb A1C) docked deviceon 77-68-2051LcS2z (Bld) [Mass fraction]5.6 %NOMS HealthcareAlanine aminotransferase [Enzymatic activity/volume] in Serum or PlasmaOrdered By: Fabiola Marinelli on 86-70-6422JHZ [Catalytic activity/Vol]Alanine aminotransferase [Enzymatic activity/volume] in Serum or Plasma7-52Sal[facility] City HospitalAlbumin [Mass/volume] in Serum or Plasma by Bromocresol green (BCG) dye binding methoOrdered By: Fabiola Marinelli on 51-86-2954Brbiwhh BCG dye [Mass/Vol] Albumin [Mass/volume] in Serum or Plasma by Bromocresol green (BCG) dye binding metho3.5-5.7FPremier HealthAlkaline phosphatase [Enzymatic activity/volume] in Serum or PlasmaOrdered By: Fabiola Marinelli on 87-68-6418ROC [Catalytic activity/Vol]Alkaline phosphatase [Enzymatic activity/volume] in Serum or Huwzvd15-951ScmliwxnpSalem City HospitalAnisocytosis LM Ql (Bld) Ordered By: Fabiola Marinelli on 56-01-7153Azbhxkmsponh Ql (Bld)Anisocytosis [Presence] in Blood by Light microscopySalem City HospitalAspartate aminotransferase [Enzymatic activity/volume] in Serum or PlasmaOrdered By: Fabiola Marinelli on 76-19-5641IAR [Catalytic activity/Vol]Aspartate aminotransferase [Enzymatic activity/volume] in Serum or Yniknk38-00WvotdvkwpSalem City HospitalBasophils Auto (Bld) [#/Vol]Ordered By: Fabiola Marinelli on 41-83-1452Pictouvdx (Bld) [#/Vol]Automated basophil count0.0-0.2FPremier Health Basophils/100 WBC Auto (Bld)Ordered By: Fabiola Marinelli on 83-67-7842Uxuaqvccv/100 WBC (Bld)Automated basophil %.Sal[facility] City HospitalBilirubin.total [Mass/volume] in Serum or PlasmaOrdered By: Fabiola Marinelli on 09-99-7108Reimhywqx [Mass/Vol]Bilirubin.total [Mass/volume] in Serum or Plasma0.3-1.0Sal[facility] City HospitalBlood toxic granulation detection by light microscopy Ordered By: Fabiola Marinelli on 68-35-8335Jhgtl granules LM Ql (Bld)Blood toxic granulation detection by light microscopySalem City HospitalToxic granules LM Ql (Bld)ModerateSalem City HospitalCalcium [Mass/volume] in Serum or PlasmaOrdered By: Fabiola Marinelli on 65-73-0742Leavkwc [Mass/Vol]Calcium [Mass/volume] in Serum or Plasma8.6-10.3FPremier HealthCarbon dioxide, total [Moles/volume] in Serum or PlasmaOrdered By: Fabiola Marinelli on 36-06-0566VK1 [Moles/Vol]Carbon dioxide, total [Moles/volume] in Serum or Ddasly36.0-31.0Sal[facility] City HospitalChloride [Moles/volume] in Serum or PlasmaOrdered By: Fabiola Marinelli on 78-81-8523Xevaiqgg [Moles/Vol] Chloride [Moles/volume] in Serum or Djlbwi58-230KaigpvwreSalem City HospitalComprehensive Metabolic Panelon 12-76-8118Nxzsrbf [Mass/Vol]3.7 g/dLNormal 3.5-5.7The [facility] Physician GroupComment on above:Performed By: #### CMP ####[address] Albumin/Globulin [Mass ratio]2.1 {ratio}NormalThe [facility] Phys[facility] Group Comment on above:Performed By: #### CMP ####[address] [address] USAALP [Catalytic activity/Vol]80 U/XHrppjk53-484 The [facility] Physician GroupComment on above:Performed By: #### CMP ####[address] [address] USAALT [Catalytic activity/Vol]29 U/LNormal7-52The [facility] Physician GroupComment on above:Performed By: #### CMP ####[address] [address] USAAnion gap [Moles/Vol]8.0 mmol/LNormal6.0-15.0The [facility] Physician GroupComment on above:Performed By: #### CMP ####[address] [address] USAAST [Catalytic activity/Vol]35 U/GMxxgns48-08[place] Physician [facility] CenterComment on above: Performed By: #### CMP ####[address] [address] USABilirubin [Mass/Vol]0.7 mg/dLNormal0.3-1.0[facility] Physician GroupComment on above:Performed By: #### CMP ####[address] [address] USACalcium [Mass/Vol]8.8 mg/dLNormal8.6-10.3The [facility] Physician GroupComment on above:Performed By: #### CMP ####[address] [address] USAChloride [Moles/Vol]107 mmol/JSuaiwg44-677E[place] Physician [facility] Comment on above:Performed By: #### CMP ####[address] USACO2 [Moles/Vol]28.8 mmol/UAevhym89.0-31.0The [facility] Physician GroupComment on above:Performed By: #### CMP ####[address] [address] USACreatinine [Mass/Vol] 0.95 mg/dLNormal0.60-1.20The [facility] Physician GroupComment on above:Performed By: #### CMP ####[address] USACreatinine Clr Calc Umssqhll91.06NormOrlando Health - Health [facility] Physician [facility] Comment on above:Result Comment: PERFORMED BY:[address] [place], [place] [phone] MEDICAL DIRECTORTAVIA SCHMIDT M.D.Performed By: #### CMP ####[address] [address] USAGFR/1.73 sq M.predicted MDRD (S/P/Bld) [Vol rate/Area]mL/min/{1.73_m2}NormalThe [facility] Group Comment on above:Performed By: #### CMP ####[address] USAGlobulin (S) [Mass/Vol]1.8 g/dLNormalThSt. Luke's Fruitland Physician GroupComment on above:Performed By: #### CMP ####[place] [address] USAGlucose [Mass/Vol]82 mg/oQCbczal51-023Ddk [facility]health Physician GroupComment on above:Result Comment: Random Glucose Reference Range is dependent on time and content of last meal. Glucose of more than 200 mg/dL in a nonstressed, ambulatory subject supports the diagnosis of Diabetes Mellitus. ADA recommended reference rangePerformed By: #### CMP ####[place] [address] USAPotassium [Moles/Vol]3.8 mmol/LNormal3.5-5.1[facility] Comment on above:Performed By: #### CMP ####[place] [address] USAProtein [Mass/Vol]5.5 g/dLLow6.4-8.9The [facility] Physician GroupComment on above:Performed By: #### CMP ####[place] [address] USASodium [Moles/Vol]140 mmol/FQddmdg183-635Ial [facility] Physician GroupComment on above:Performed By: #### CMP ####[place] [address] USAUrea nitrogen [Mass/Vol]22 mg/dLNormal7-25[facility] Comment on above:Performed By: #### CMP ####[address] USAComprehensive metabolic panelon 12-07-2024 Albumin [Mass/Vol]3.7 g/dL3.5 - 5.7 g/dLNOMS HealthcareAlbumin/Globulin [Mass ratio]2.1 {ratio}NOMS HealthcareALP [Catalytic activity/Vol]80 U/L34 - 104 U/L [facility]S HealthcareALT [Catalytic activity/Vol]29 U/L7 - 52 U/LNOMS HealthcareAnion gap [Moles/Vol]8 mmol/L6.0 - 15.0 meq/LNOMS HealthcareAST [Catalytic activity/Vol]35 U/L13 - 39 U/LNOMS HealthcareBilirubin [Mass/Vol]0.7 mg/dL0.3 - 1.0 mg/dLNOMS HealthcareCalcium [Mass/Vol]8.8 mg/dL8.6 - 10.3 mg/dLNOMS HealthcareChloride [Moles/Vol]107 mmol/L98 - 107 mmol/LNOMS HealthcareCO2 [Moles/Vol]28.8 mmol/L21.0 - 31.0 mmol/LNOMS HealthcareCreatinine (U) [Mass/Vol] 0.95 mg/dL0.60 - 1.20 mg/dLNOMS HealthcareCREATININE CLR CALC YXOFCIXW56.06NOMS HealthcareESTIMATED GFRmL/MinNOMS HealthcareGlobulin (S) [Mass/Vol]1.8 g/dLNOPR HealthcareGlucose [Mass/Vol]82 mg/dL70 - 100 mg/dLNOPR HealthcareComment on above:Random Glucose Reference Range is dependent on time and content of last meal. Glucose of more than 200 mg/dL in a nonstressed, ambulatory subject supports the diagnosis of Diabetes Mellitus. ADA recommended reference range Interpretation and review of laboratory resultsAbnormalNOMS HealthcarePotassium [Moles/Vol]3.8 mmol/L3.5 - 5.1 mmol/LNOMS HealthcareProtein [Mass/Vol]5.5 g/dL Low6.4 - 8.9 g/dLNOPR HealthcareSodium [Moles/Vol]140 mmol/L136 - 145 mmol/LNOMS HealthcareUrea nitrogen [Mass/Vol]22 mg/dL7 - 25 mg/dLNOWright Memorial HospitalNOPR HealthcareCreatinine [Mass/volume] in Serum or PlasmaOrdered By: Fabiola Marinelli on 24-07-2716Erwiadowlw [Mass/Vol]Creatinine [Mass/volume] in Serum or Plasma 0.60-1.20[facility] City HospitalEosinophils Auto (Bld) [#/Vol]Ordered By: Fabiola Marinelli on 85-87-0534Ynbztwlvjqj (Bld) [#/Vol]Automated eosinophil count 0.0-0.45[facility] HospitalEosinophils/100 WBC Auto (Bld)Ordered By: Fabiola Marinelli on 48-79-3826Yipnpejikyu/100 WBC (Bld)Automated eosinophil %. [facility] City HospitalErythrocyte distribution width Auto (RBC) [Ratio]Ordered By: Fabiola Marinelli on 93-33-3274Unmbdoddvah distribution width (RBC) [Ratio]Erythrocyte distribution width [Ratio] by Automated wrddbFfqy60.9-15.3 [facility] HospitalErythrocyte morphology finding [Identifier] in BloodOrdered By: Fabiola Marinelli on 82-39-6327MBF morphology finding Nom (Bld)RBC morphologySalem City HospitalGlobulin Calc (S) [Mass/Vol]Ordered By: Fabiola Marinelli on 66-00-6662Ymzsygel (S) [Mass/Vol]Serum globulin measurement by calculation (mass/volume)[facility] HospitalGlucose [Mass/volume] in Serum or PlasmaOrdered By: Fabiola Marinelli on 76-70-4818Zkhvqre [Mass/Vol]Glucose [Mass/volume] in Serum or Asjtco13-873FwmrsavocSalem City Hospital Hematocrit Auto (Bld) [Volume fraction]Ordered By: Fabiola Marinelli on 12-07-2024 Hematocrit (Bld) [Volume fraction]Hematocrit [Volume Fraction] of Blood by Automated ovhidWqg39.0-46.4FPremier HealthHemoglobin [Mass/volume] in BloodOrdered By: Fabiola Marinelli on 00-86-2580Fgjshabwnb (Bld) [Mass/Vol]Hemoglobin [Mass/volume] in YkguiRte91.8-15.4FPremier HealthHypochromia LM Ql (Bld)Ordered By: Fabiola Marinelli on 12-07-2024 Hypochromia Ql (Bld)Hypochromia [Presence] in Blood by Light microscopySalem City HospitalLeukocytes [#/volume] corrected for nucleated erythrocytes in Blood by Automated counOrdered By: Fabiola Marinelli on 34-72-6274CKZ corrected for nucl RBC Auto (Bld) [#/Vol]Leukocytes [#/volume] corrected for nucleated erythrocytes in Blood by Automated counLow3.8-11.6FPremier HealthLymphocytes Auto (Bld) [#/Vol]Ordered By: Fabiola Marinelli on 12-07-2024 Lymphocytes (Bld) [#/Vol]Lymphocytes [#/volume] in Blood by Automated countLow 1.00-4.8[facility] HospitalLymphocytes/100 WBC Auto (Bld)Ordered By: Fabiola Marinelli on 47-20-4248Xbixazswkdt/100 WBC (Bld)Lymphocytes/100 leukocytes in Blood by Automated count.Sal[facility] City HospitalMCH Auto (RBC) [Entitic mass]Ordered By: Fabiola Marinelli on 49-07-0430UGU (RBC) [Entitic mass]MCH [Entitic mass] by Automated count24.7-34.3FPremier HealthMCHC Auto (RBC) [Mass/Vol]Ordered By: Fabiola Marinelli on 24-62-9536TOMX (RBC) [Mass/Vol] MCHC [Mass/volume] by Automated count32.0-35.0[facility] MCV Auto (RBC) [Entitic vol]Ordered By: Fabiola Marinelli on 26-16-7688CSQ (RBC) [Entitic vol]MCV [Entitic volume] by Automated zotea23-216IlidpyuceSalem City HospitalMonocytes Auto (Bld) [#/Vol]Ordered By: Fabiola Marinelli on 12-07-2024 Monocytes (Bld) [#/Vol]Automated blood monocyte count0.0-0.8Sal[facility] HospitalMonocytes/100 WBC Auto (Bld)Ordered By: Fabiola Marinelli on 12-07-2024 Monocytes/100 WBC (Bld)Automated monocyte %.[facility] Neutrophils Auto (Bld) [#/Vol]Ordered By: Fabiola Marinelli on 75-93-3394Srpvegkpvfy (Bld) [#/Vol]Neutrophils [#/volume] in Blood by Automated countLow1.8-7.7 [facility] HospitalNeutrophils/100 WBC Auto (Bld)Ordered By: Fabiola Marinelli on 64-37-5492Jhaliktltel/100 WBC (Bld)Automated neutrophil %.[facility] HospitalNo Panel InformationOrdered By: Fabiola Marinelli on 12-07-2024> 60.0 mL/MinSalem City Hospital57.06[facility] HospitalNucleated erythrocytes [Presence] in Blood by Automated countOrdered By: Fabiola Marinelli on 18-81-5035Xtpkhsqgq RBC Auto Ql (Bld)Nucleated erythrocytes [Presence] in Blood by Automated count0-0.5FPremier Health Ovalocytes [Presence] in Blood by Light microscopyOrdered By: Fabiola Marinelli on 41-42-9221Vqikbiwdft LM Ql (Bld)Ovalocyte detectionSalem City HospitalPlatelet adequacy [Presence] in Blood by Light microscopyOrdered By: Fabiola Marinelli on 63-77-4890Ptaoaliik LM Ql (Bld)Platelet adequacy [Presence] in Blood by Light microscopyNoOhioHealth Marion General HospitalPlatelet mean volume Auto (Bld) [Entitic vol]Ordered By: Fabiola Marinelli on 22-67-0872Hoxvogds mean volume (Bld) [Entitic vol]Platelet mean volume [Entitic volume] in Blood by Automated count6.3-10.7FPremier HealthPlatelet morphology finding [Identifier] in BloodOrdered By: Fabiola Marinelli on 01-88-5171Avbmuako morphology finding Nom (Bld)Platelet morphology finding [Identifier] in BloodNoOhioHealth Dublin Methodist HospitalPlatelets Auto (Bld) [#/Vol]Ordered By: Fabiola Marinelli on 84-41-8964Gyjuegbcq (Bld) [#/Vol]Platelets [#/volume] in Blood by Automated checaPyv699-380RpjscdbzdSalem City HospitalPoikilocytosis [Presence] in Blood by Light microscopyOrdered By: Fabiola Marinelli on 12-07-2024 Poikilocytosis LM Ql (Bld)Poikilocytosis [Presence] in Blood by Light microscopy [facility] HospitalPolychromasia [Presence] in Blood by Light microscopyOrdered By: Fabiola Marinelli on 35-43-9023Mvpscamaxntud LM Ql (Bld) Polychromasia [Presence] in Blood by Light microscopySalem City HospitalPotassium [Moles/volume] in Serum or PlasmaOrdered By: Fabiola Marinelli on 99-67-6723Gvfwbupib [Moles/Vol]Potassium [Moles/volume] in Serum or Plasma 3.5-5.1FPremier HealthProtein [Mass/volume] in Serum or Plasma Ordered By: Fabiola Marinelli on 01-55-6323Raslnhm [Mass/Vol]Protein [Mass/volume] in Serum or PlasmaLow6.4-8.9[facility] HospitalRBC Auto (Bld) [#/Vol] Ordered By: Fabiola Marinelli on 95-03-1670CIN (Bld) [#/Vol]Erythrocytes [#/volume] in Blood by Automated countLow3.60-5.00R[facility]view Health Institutecan and CBCon 08-42-3292Vscefvdgkmds Ql (Bld)ModerateNoAtrium Health Cabarrus Physician Group Comment on above:Performed By: #### SCAN CBC ####[place] [address] USABasophils (Bld) [#/Vol]0.0 10*3/uL Normal0.0-0.2The [facility] Physician GroupComment on above:Performed By: #### SCAN CBC ####[place] [address] USABasophils/100 WBC (Bld)0.3 %Normal.The [facility] Physician GroupComment on above:Performed By: #### SCAN CBC ####[place] [address] USAEosinophils (Bld) [#/Vol]0.0 10*3/uLNormal0.0-0.45 The [facility] Physician GroupComment on above:Performed By: #### SCAN CBC ####[address] [place] Eosinophils/100 WBC (Bld)0.2 %Normal.The [facility] Physician GroupComment on above:Performed By: #### SCAN CBC ####[place] [address] USAErythrocyte distribution width (RBC) [Ratio]20.3 % High11.9-15.3The [facility] Physician GroupComment on above:Performed By: #### SCAN CBC ####[place] [address] USAHematocrit (Bld) [Volume fraction]27.9 %Low34.0-46.4The [facility] Physician GroupComment on above:Performed By: #### SCAN CBC ####[place] [address] USAHemoglobin (Bld) [Mass/Vol]9.2 g/dLLow 11.8-15.4The [facility] Physician GroupComment on above:Performed By: #### SCAN CBC ####[place] [address] [place] HypochromasiaSlightNormalThe [facility]health Physician GroupComment on above:Performed By: #### SCAN CBC ####[place] [address] USALymphocytes (Bld) [#/Vol]0.4 10*3/uLLow1.00-4.8The [facility] Physician GroupComment on above:Performed By: #### SCAN CBC ####[place] [address] USALymphocytes/100 WBC (Bld)20.5 %Normal.The [facility] Physician GroupComment on above:Performed By: #### SCAN CBC ####[place] [address] USAMCH (RBC) [Entitic mass]27.2 reOiyojt18.7-34.3The [facility] Physician GroupComment on above:Performed By: #### SCAN CBC ####[place] [address] USAMCV (RBC) [Entitic vol]82.6 fLNormal 80-100The [facility] Physician GroupComment on above:Performed By: #### SCAN CBC ####[place] [address] USAMean Corpuscular HGB Conc33.0 g/sPZtnhxd46.0-35.0The [facility] Physician GroupComment on above:Performed By: #### SCAN CBC ####[place] [address] USAMonocytes (Bld) [#/Vol]0.4 10*3/uLNormal 0.0-0.8The [facility] Physician GroupComment on above:Performed By: #### SCAN CBC ####[place] [address] [place] Monocytes/100 WBC (Bld)22.6 %Normal.The [facility] Physician GroupComment on above:Performed By: #### SCAN CBC ####[place] [address] USANeutrophils (Bld) [#/Vol]1.1 10*3/uLLow1.8-7.7The [facility] Physician GroupComment on above:Performed By: #### SCAN CBC ####[address] Neutrophils/100 WBC (Bld)56.4 %Normal.The [facility] Physician GroupComment on above:Performed By: #### SCAN CBC ####[place] [address] USANRBC%0.0 /100{WBC}Normal0-0.5The [facility] Physician GroupComment on above:Performed By: #### SCAN CBC ####[place] [address] USAOvalocytesSlightNoAtrium Health Cabarrus Physician GroupComment on above:Performed By: #### SCAN CBC ####[place] [address] [place] Platelet EstimateDecreasedNormalNormOrlando Health - Health [facility] Hospital Physician GroupComment on above:Performed By: #### SCAN CBC ####[address] [address] USAPlatelet mean volume (Bld) [Entitic vol]7.7 fLNormal 6.3-10.7The [facility] Physician GroupComment on above:Performed By: #### SCAN CBC ####[place] [address] [place] Platelet MorphologyNormalNormalNormOrlando Health [facility] Hospital Physician GroupComment on above:Result Comment: PERFORMED BY:[place] [address] [address] [place], [place] [phone] MEDICAL DIRECTORTAVIA HORAN M.D.Performed By: #### SCAN CBC ####[address] [address] USAPlatelets (Bld) [#/Vol]45 10*3/xCTbz253-225Ogf [facility] Physician GroupComment on above:Performed By: #### SCAN CBC ####[place] [address] [facility] PoikilocytosisSlightNoAtrium Health Cabarrus Physician GroupComment on above: Performed By: #### SCAN CBC ####[address] [address] USAPolychromasiaSHaywood Regional Medical Center Physician GroupComment on above:Performed By: #### SCAN CBC ####[place] [address] USARBC (Bld) [#/Vol]3.38 10*6/uLLow 3.60-5.00The [facility] Physician GroupComment on above:Performed By: #### SCAN CBC ####[address] [address] [facility] Toxic GranulationModerateShorePoint Health Port Charlotte Physician GroupComment on above: Performed By: #### SCAN CBC ####[address] [address] USAWBC (Bld) [#/Vol]1.9 10*3/uLLow3.8-11.6The [facility] Physician GroupComment on above:Performed By: #### SCAN CBC ####[place] [address] USASerum or plasma albumin/globulin mass ratioOrdered By: Fabiola Marinelli on 37-43-3828Zfbskzp/Globulin [Mass ratio]Serum or plasma albumin/globulin mass ratioRiverview Health Instituteerum or plasma anion gap determinationOrdered By: Fabiola Marinelli on 57-62-8921Ykjjx gap [Moles/Vol]Serum or plasma anion gap determination6.0-15.0 Riverview Health Instituteodium [Moles/volume] in Serum or PlasmaOrdered By: Fabiola Marinelli on 13-93-8850Zhwoum [Moles/Vol]Sodium [Moles/volume] in Serum or Modtck704-379MwsbedyohSalem City HospitalUrea nitrogen [Mass/volume] in Serum or PlasmaOrdered By: Fabiola Marinelli on 53-47-1084Ehdo nitrogen [Mass/Vol]Urea nitrogen [Mass/volume] in Serum or Plasma7-25[facility] WBC Auto (Bld) [#/Vol]Ordered By: Fabiola Marinelli on 18-99-8755LFI (Bld) [#/Vol] Leukocytes [#/volume] in Blood by Automated countLow3.8-11.6FPremier HealthAnoscopyon 63-31-6941GzqxjMATT Dao 11/28/2024 1:25 PM Anoscopy Date/Time: 11/28/2024 1:22 PM Performed by: MATT Dao Authorized by: MTAT Dao Consent: Consent obtained: Verbal Consent given by: Patient Risks, benefits, and alternatives were discussed: yes [place] protocol: Procedure explained and questions answered to patient or proxy's satisfaction: yes Patient identity confirmed: Verbally with patient Post-procedure details: Procedure completion: Tolerated Comments: E has small circumferential external hemorrhoids that are tender. No active bleeding. Limited LYLA, d/t pain but you can feel the enlarged internal hemorrhoids.[facility] Work Phone: [place] Work Phone: IMMUNOGLOBULINS A/G/M, QN, SERon 11-17-2024 IMMUNOGLOBULIN A, SERUMmg/dLLow87 - 352 mg/dLNOPR HealthcareComment on above: Result confirmed on concentration.IMMUNOGLOBULIN G430 mg/nKUlh477 - 1602 mg/dL NOMS HealthcareIMMUNOGLOBULIN M, SERUM5 mg/dLLow26 - 217 mg/dLNOPR Healthcare Comment on above:Result confirmed on concentration. Performed at: [address] [id number] Aeronautical Design Engineer: Lang Knight PhD, Phone: [phone] Interpretation and review of laboratory resultsAbformerly Western Wake Medical CenterAlanine aminotransferase [Enzymatic activity/volume] in Serum or PlasmaOrdered By: Fabiola Marinelli on 23-09-3443YGW [Catalytic activity/Vol]Alanine aminotransferase [Enzymatic activity/volume] in Serum or Plasma7-52[facility] City HospitalAlbumin [Mass/volume] in Serum or Plasma by Bromocresol green (BCG) dye binding methoOrdered By: Fabiola Marinelli on 81-45-0731Fjgfojw BCG dye [Mass/Vol]Albumin [Mass/volume] in Serum or Plasma by Bromocresol green (BCG) dye binding metho3.5-5.7FPremier HealthAlkaline phosphatase [Enzymatic activity/volume] in Serum or PlasmaOrdered By: Fabiola Marinelli on 82-97-3816DYA [Catalytic activity/Vol]Alkaline phosphatase [Enzymatic activity/volume] in Serum or Jvtbbp12-359XldqksrcqSalem City Hospital Anisocytosis LM Ql (Bld)Ordered By: Fabiola Marinelli on 56-85-8515Dqfdfqcgpfdw Ql (Bld) Anisocytosis [Presence] in Blood by Light microscopySalem City HospitalAspartate aminotransferase [Enzymatic activity/volume] in Serum or Plasma Ordered By: Fabiola Marinelli on 79-21-8950JNS [Catalytic activity/Vol]Aspartate aminotransferase [Enzymatic activity/volume] in Serum or Gldtls17-41ApwaqfpgjSalem City HospitalBasophils Auto (Bld) [#/Vol]Ordered By: Fabiola Marinelli on 89-43-1600Fpdttvbpz (Bld) [#/Vol]Automated basophil count0.0-0.2FPremier HealthBasophils/100 WBC Auto (Bld)Ordered By: Fabiola Marinelli on 93-85-9458Xipqftexg/100 WBC (Bld)Automated basophil %.Sal[facility] City HospitalBilirubin.total [Mass/volume] in Serum or PlasmaOrdered By: Fabiola Marinelli on 95-28-1781Bmroktayd [Mass/Vol]Bilirubin.total [Mass/volume] in Serum or Plasma 0.3-1.0[facility] HospitalCalcium [Mass/volume] in Serum or Plasma Ordered By: Fabiola Marinelli on 32-16-6430Znycpbb [Mass/Vol]Calcium [Mass/volume] in Serum or Plasma8.6-10.3FPremier HealthCarbon dioxide, total [Moles/volume] in Serum or PlasmaOrdered By: Fabiola Berumense on 17-62-4136NQ2 [Moles/Vol]Carbon dioxide, total [Moles/volume] in Serum or Penuky04.0-31.0 [facility] HospitalChloride [Moles/volume] in Serum or Plasma Ordered By: Fabiola Yves on 17-29-8495Bmaecuql [Moles/Vol]Chloride [Moles/volume] in Serum or Njlirs04-592IpmbfwswySalem City HospitalComprehensive Metabolic Panelon 52-69-5867Idndqei [Mass/Vol]3.7 g/dLNormal3.5-5.7The [facility] Physician GroupComment on above:Performed By: #### SCAN CBC, CMP ####[place] [address] [place] [address] USAAlbumin/Globulin [Mass ratio]1.9 {ratio}NormalThe Adventhealth Physician GroupComment on above: Performed By: #### SCAN CBC, CMP ####[place] [address] [place] [address] USAALP [Catalytic activity/Vol]81 U/YGzcgzw84-016Poc [facility] Physician GroupComment on above:Performed By: #### SCAN CBC, CMP ####[place] [address] [place] [address] USAALT [Catalytic activity/Vol]12 U/LNormal7-52The [facility] Physician GroupComment on above:Performed By: #### SCAN CBC, CMP ####[place] [address] [place] [address] USAAnion gap [Moles/Vol]10.0 mmol/LNormal6.0-15.0 The [facility] Physician GroupComment on above:Performed By: #### SCAN CBC, CMP ####[place] [address] [place] [address] USAAST [Catalytic activity/Vol]27 U/WNvsqqw20-96Dgx [facility] Physician GroupComment on above:Performed By: #### SCAN CBC, CMP ####[address] [place] [address] USABilirubin [Mass/Vol]0.9 mg/dLNormal0.3-1.0The [facility] Physician GroupComment on above:Performed By: #### SCAN CBC, CMP ####[address] [address] USACalcium [Mass/Vol]8.9 mg/dLNormal8.6-10.3The [facility] Physician GroupComment on above: Performed By: #### SCAN CBC, CMP ####[address] [address] USAChloride [Moles/Vol]102 mmol/YNpcvzm47-636How [facility] Physician GroupComment on above:Performed By: #### SCAN CBC, CMP ####[place] [address] USACO2 [Moles/Vol]29.2 mmol/JAzslcu96.0-31.0The [facility] Physician GroupComment on above:Performed By: #### SCAN CBC, CMP ####[address] [address] USACreatinine [Mass/Vol]1.08 mg/dLNormal0.60-1.20 The [facility] Physician GroupComment on above:Performed By: #### SCAN CBC, CMP ####[address] [address] [place] Creatinine Clr Calc Dvokuqbw73.05NoAtrium Health Cabarrus Physician GroupComment on above:Result Comment: PERFORMED BY:[address] [place], [place] [phone] MEDICAL JAEL HORAN M.D.Performed By: #### SCAN CBC, CMP ####[address] [address] USAEstimated GFR56.300 mL/MinNoAtrium Health Cabarrus Physician [facility] Medical CenterComment on above:Performed By: #### SCAN CBC, CMP ####[address] [address] [place] Globulin (S) [Mass/Vol]2.0 g/dLNormOrlando Health - Health Central Hospital Physician GroupComment on above:Performed By: #### SCAN CBC, CMP ####[place] [place] [address] USAGlucose [Mass/Vol]115 mg/mJXqly62-933Ilh [facility] Physician GroupComment on above:Result Comment: Random Glucose Reference Range is dependent on time and content of last meal. Glucose of more than 200 mg/dL in a nonstressed, ambulatory subject supports the diagnosis of Diabetes Mellitus. ADA recommended reference rangePerformed By: #### SCAN CBC, CMP ####[place] [address] [place] [address] [place] Potassium [Moles/Vol]4.2 mmol/LNormal3.5-5.1The [facility] Physician GroupComment on above:Performed By: #### SCAN CBC, CMP ####[place] [address] USAProtein [Mass/Vol]5.7 g/dLLow6.4-8.9 The [facility] Physician GroupComment on above:Performed By: #### SCAN CBC, CMP ####[place] [address] USASodium [Moles/Vol]137 mmol/UKfjfyc088-328Opq [facility] Physician GroupComment on above: Performed By: #### SCAN CBC, CMP ####[place] [address] USAUrea nitrogen [Mass/Vol]16 mg/dLNormal7-25The [facility] Physician GroupComment on above:Performed By: #### SCAN CBC, CMP ####[place] [address] [facility] Comprehensive metabolic panelon 64-70-6044Ucspryg [Mass/Vol]3.7 g/dL3.5 - 5.7 g/dLNOMS HealthcareAlbumin/Globulin [Mass ratio]1.9 {ratio}NOMS HealthcareALP [Catalytic activity/Vol]81 U/L34 - 104 U/LNOMS HealthcareALT [Catalytic activity/Vol]12 U/L7 - 52 U/LNOMS HealthcareAnion gap [Moles/Vol]10 mmol/L6.0 - 15.0 meq/LNOMS HealthcareAST [Catalytic activity/Vol]27 U/L13 - 39 U/LNOMS HealthcareBilirubin [Mass/Vol]0.9 mg/dL0.3 - 1.0 mg/dLNOMS HealthcareCalcium [Mass/Vol]8.9 mg/dL8.6 - 10.3 mg/dLNOMS HealthcareChloride [Moles/Vol]102 mmol/L 98 - 107 mmol/LNOMS HealthcareCO2 [Moles/Vol]29.2 mmol/L21.0 - 31.0 mmol/LNOMS HealthcareCreatinine (U) [Mass/Vol]1.08 mg/dL0.60 - 1.20 mg/dLNOPR Healthcare CREATININE CLR CALC IQDBYIDG82.05NOMS HealthcareGFR/1.73 sq M.predicted MDRD (S/P/Bld) [Vol rate/Area]56.3 mL/min/{1.73_m2}mL/MinNOMS HealthcareGlobulin (S) [Mass/Vol]2 g/dLNOMS HealthcareGlucose [Mass/Vol]115 mg/vZQqvp64 - 100 mg/dLNOPR HealthcareComment on above:Random Glucose Reference Range is dependent on time and content of last meal. Glucose of more than 200 mg/dL in a nonstressed, ambulatory subject supports the diagnosis of Diabetes Mellitus. ADA recommended reference range Interpretation and review of laboratory resultsAbnormalNOMS HealthcarePotassium [Moles/Vol]4.2 mmol/L3.5 - 5.1 mmol/LNOMS HealthcareProtein [Mass/Vol]5.7 g/dL Low6.4 - 8.9 g/dLNOPR HealthcareSodium [Moles/Vol]137 mmol/L136 - 145 mmol/LNOMS HealthcareUrea nitrogen [Mass/Vol]16 mg/dL7 - 25 mg/dLNOWright Memorial HospitalNOPR HealthcareCreatinine [Mass/volume] in Serum or PlasmaOrdered By: Fabiola Marinelli on 01-84-4084Vhrzhqtjfh [Mass/Vol]Creatinine [Mass/volume] in Serum or Plasma 0.60-1.20[facility] City HospitalEosinophils Auto (Bld) [#/Vol]Ordered By: Fabiola Marinelli on 90-94-7273Bitdotbxivq (Bld) [#/Vol]Automated eosinophil count High0.0-0.45[facility] HospitalEosinophils/100 WBC Auto (Bld) Ordered By: Fabiola Marinelli on 47-77-9400Eerfcpeaoci/100 WBC (Bld)Automated eosinophil %.[facility] HospitalErythrocyte distribution width Auto (RBC) [Ratio]Ordered By: Fabiola Marinelli on 72-85-5806Xwepzkomrle distribution width (RBC) [Ratio]Erythrocyte distribution width [Ratio] by Automated afurmGicu61.9-15.3 [facility] HospitalErythrocyte morphology finding [Identifier] in BloodOrdered By: Fabiola Marinelli on 28-57-2973GKU morphology finding Nom (Bld)RBC morphologySalem City HospitalGlobulin Calc (S) [Mass/Vol]Ordered By: Fabiola Marinelli on 38-45-1848Ggxxuriv (S) [Mass/Vol]Serum globulin measurement by calculation (mass/volume)[facility] HospitalGlucose [Mass/volume] in Serum or PlasmaOrdered By: Fabiola Marinelli on 96-28-6680Madmfhp [Mass/Vol]Glucose [Mass/volume] in Serum or QlryreXlzr01-517FrcbaoxniSalem City Hospital Hematocrit Auto (Bld) [Volume fraction]Ordered By: Fabiola Marinelli on 11-16-2024 Hematocrit (Bld) [Volume fraction]Hematocrit [Volume Fraction] of Blood by Automated nulfrApt52.0-46.4FPremier HealthHemoglobin [Mass/volume] in BloodOrdered By: Fabiola Marinelli on 80-20-9646Mwynvxvuzd (Bld) [Mass/Vol]Hemoglobin [Mass/volume] in PmgmhNhq38.8-15.4FPremier HealthImmunoglobulins A/G/M, Qn, Seron 36-62-4200Yjzrxbecbnuswz A, Serum <8Fcw74-237Opc [facility] Physician GroupComment on above:Result Comment: Result confirmed on concentration.Performed By: #### IMM OSCAR ####[facility] , Immunoglobulin G430 mg/zSEbq221-6626Iqf [facility] Physician GroupComment on above:Performed By: #### IMM OSCAR ####[facility] ,Immunoglobulin M, Serum5 mg/kCTza38-386Mfy [facility] Physician GroupComment on above:Result Comment: Result confirmed on concentration. Performed at: - [facility] [address] [id number] Aeronautical Design Engineer: Lang Knight PhD, Phone: [phone] BY:[facility] [place], [place] [phone] MEDICAL DIRECTORMOSRI HORAN M.D.Performed By: #### IMM OSCAR ####[facility] ,Leukocytes [#/volume] corrected for nucleated erythrocytes in Blood by Automated coun Ordered By: Fabiola Marinelli on 86-42-1750BRC corrected for nucl RBC Auto (Bld) [#/Vol] Leukocytes [#/volume] corrected for nucleated erythrocytes in Blood by Automated counLow3.8-11.6FPremier HealthLymphocytes Auto (Bld) [#/Vol] Ordered By: Fabiola Marinelli on 91-45-3225Zcalavjjtsi (Bld) [#/Vol]Lymphocytes [#/volume] in Blood by Automated countLow1.00-4.8[facility] HospitalLymphocytes/100 WBC Auto (Bld)Ordered By: Fabiola Marinelli on 11-16-2024 Lymphocytes/100 WBC (Bld)Lymphocytes/100 leukocytes in Blood by Automated count. [facility] CenterH Auto (RBC) [Entitic mass]Ordered By: Fabiola Marinelli on 85-40-9551KYZ (RBC) [Entitic mass]MCH [Entitic mass] by Automated count 24.7-34.3FSumma Health Wadsworth - Rittman Medical CenterHC Auto (RBC) [Mass/Vol]Ordered By: Fabiola Marinelli on 57-56-2442RKKP (RBC) [Mass/Vol]MCHC [Mass/volume] by Automated count32.0-35.0[facility] HospitalMCV Auto (RBC) [Entitic vol] Ordered By: Fabiola Marinelli on 08-50-1137OQZ (RBC) [Entitic vol]MCV [Entitic volume] by Automated -920AjlyiqvucSalem City HospitalMonocytes Auto (Bld) [#/Vol]Ordered By: Fabiola Marinelli on 68-47-6437Qmejshxad (Bld) [#/Vol]Automated blood monocyte count0.0-0.8[facility] HospitalMonocytes/100 WBC Auto (Bld)Ordered By: Fabiola Marinelli on 17-10-3568Igtsuznjq/100 WBC (Bld)Automated monocyte %.[facility] HospitalNeutrophils Auto (Bld) [#/Vol] Ordered By: Fabiola Marinelli on 19-39-3875Jzsiapzdcsc (Bld) [#/Vol]Neutrophils [#/volume] in Blood by Automated countLow1.8-7.7FPremier HealthNeutrophils/100 WBC Auto (Bld)Ordered By: Fabiola Marinelli on 11-16-2024 Neutrophils/100 WBC (Bld)Automated neutrophil %.[facility] HospitalNo Panel InformationOrdered By: Fabiola Marinelli on 99-32-774910.300 mL/Min [facility]50.05[facility] HospitalNucleated erythrocytes [Presence] in Blood by Automated countOrdered By: Fabiola Marinelli on 11-76-5745Esggihhjs RBC Auto Ql (Bld)Nucleated erythrocytes [Presence] in Blood by Automated count0-0.5FPremier HealthOvalocytes [Presence] in Blood by Light microscopyOrdered By: Fabiola Marinelli on 88-67-4403Uvdyoajkcp LM Ql (Bld)Ovalocyte detectionSalem City HospitalPlatelet adequacy [Presence] in Blood by Light microscopyOrdered By: Fabiola Marinelli on 11-16-2024 Platelets LM Ql (Bld)Platelet adequacy [Presence] in Blood by Light microscopy NormalSalem City HospitalPlatelet mean volume Auto (Bld) [Entitic vol]Ordered By: Fabiola Marinelli on 16-88-4963Hubtqvwk mean volume (Bld) [Entitic vol] Platelet mean volume [Entitic volume] in Blood by Automated count6.3-10.7 [facility] HospitalPlatelets Auto (Bld) [#/Vol]Ordered By: Fabiola Marinelli on 52-62-4360Ojteyqurx (Bld) [#/Vol]Platelets [#/volume] in Blood by Automated wnbmmTkm402-616Efvdicltv Regional Medical CenterPoikilocytosis [Presence] in Blood by Light microscopyOrdered By: Fabiola Marinelli on 11-16-2024 Poikilocytosis LM Ql (Bld)Poikilocytosis [Presence] in Blood by Light microscopy [facility] HospitalPotassium [Moles/volume] in Serum or Plasma Ordered By: Fabiola Marinelli on 97-77-9493Sximoiadh [Moles/Vol]Potassium [Moles/volume] in Serum or Plasma3.5-5.1FPremier HealthProtein [Mass/volume] in Serum or PlasmaOrdered By: Fabiola Marinelli on 55-19-8875Ditfkcj [Mass/Vol]Protein [Mass/volume] in Serum or PlasmaLow6.4-8.9[facility] HospitalRBC Auto (Bld) [#/Vol]Ordered By: Fabiola Marinelli on 36-32-7290HFT (Bld) [#/Vol] Erythrocytes [#/volume] in Blood by Automated count3.60-5.00Riverview Health Institutecan and CBCon 36-43-0443Biwclyqlabqm Ql (Bld)ModerateNormalThe [facility] Physician GroupComment on above:Performed By: #### SCAN CBC, CMP ####[address] [place] [address] [place] Basophils (Bld) [#/Vol]0.0 10*3/uLNormal0.0-0.2The [facility] Physician [facility] Comment on above:Performed By: #### SCAN CBC, CMP ####[address] [address] USABasophils/100 WBC (Bld)0.5 %Normal. The [facility] Physician GroupComment on above:Performed By: #### SCAN CBC, CMP ####[address] [place] [address] [place] Eosinophils (Bld) [#/Vol]0.6 10*3/uLHigh0.0-0.45The [facility] Physician [facility] Comment on above:Performed By: #### SCAN CBC, CMP ####[address] [place] [address] USAEosinophils/100 WBC (Bld)28.6 %Normal .The [facility] Physician GroupComment on above:Performed By: #### SCAN CBC, CMP ####[address] Erythrocyte distribution width (RBC) [Ratio]19.4 %High11.9-15.3The [facility] Physician GroupComment on above:Performed By: #### SCAN CBC, CMP ####[place] [address] USAHematocrit (Bld) [Volume fraction]29.5 %Low34.0-46.4The [facility] Physician GroupComment on above:Performed By: #### SCAN CBC, CMP ####[place] [address] USAHemoglobin (Bld) [Mass/Vol]9.7 g/dLLow 11.8-15.4The [facility] Physician GroupComment on above:Performed By: #### SCAN CBC, CMP ####[place] [address] USALymphocytes (Bld) [#/Vol]0.5 10*3/uLLow1.00-4.8The [facility] Comment on above:Performed By: #### SCAN CBC, CMP ####[place] [address] USALymphocytes/100 WBC (Bld)22.6 %Normal .The [facility] Physician GroupComment on above:Performed By: #### SCAN CBC, CMP ####[place] [address] [facility] MEXICOMCH (RBC) [Entitic mass]26.8 uvNtimwt08.7-34.3The [facility] Physician GroupComment on above:Performed By: #### SCAN CBC, CMP ####[place] [address] USAMCV (RBC) [Entitic vol]81.3 iGRxevgi69-971Uwb [facility] Physician GroupComment on above:Performed By: #### SCAN CBC, CMP ####[place] [address] USAMean Corpuscular HGB Conc33.0 g/nOMqcgbc11.0-35.0The [facility] Physician GroupComment on above:Performed By: #### SCAN CBC, CMP ####[place] [address] USAMonocytes (Bld) [#/Vol]0.5 10*3/uLNormal 0.0-0.8The [facility] Physician GroupComment on above:Performed By: #### SCAN CBC, CMP ####[place] [address] USAMonocytes/100 WBC (Bld)22.9 %Normal.The [facility] Physician GroupComment on above:Performed By: #### SCAN CBC, CMP ####[place] [address] USANeutrophils (Bld) [#/Vol]0.6 10*3/uLLow1.8-7.7 The [facility] Physician GroupComment on above:Performed By: #### SCAN CBC, CMP ####[place] [address] [place] Neutrophils/100 WBC (Bld)25.4 %Normal.The [facility] Physician GroupComment on above:Performed By: #### SCAN CBC, CMP ####[place] [address] USANRBC%0.0 /100{WBC}Normal0-0.5The [facility] Physician GroupComment on above:Performed By: #### SCAN CBC, CMP ####[place] [address] USAOvalocytesSlight NormalThe [facility] Physician GroupComment on above:Performed By: #### SCAN CBC, CMP ####[place] [address] [place] Platelet EstimateDecreasedNormalNormalThe [facility] Physician GroupComment on above:Performed By: #### SCAN CBC, CMP ####[place] [address] USAPlatelet mean volume (Bld) [Entitic vol]8.3 fL Normal6.3-10.7The [facility] Physician GroupComment on above:Performed By: #### SCAN CBC, CMP ####[address] [address] USAPlatelet MorphologyNormalNormalNormOrlando Health - Health [facility] Hospital Physician Group Comment on above:Result Comment: PERFORMED BY:[address] [place], [place] [phone] MEDICAL DIRECTORTAVIA SCHMIDT M.D.Performed By: #### SCAN CBC, CMP ####[address] [address] [place] Platelets (Bld) [#/Vol]51 10*3/eECtj465-961Ylg [facility] Physician GroupComment on above:Performed By: #### SCAN CBC, CMP ####[address] [address] USAPoikilocytosisSlightNormOrlando Health [facility] Health [facility] Hospital Physician [facility] CenterComment on above:Performed By: #### SCAN CBC, CMP ####[address] [address] USARBC (Bld) [#/Vol]3.62 10*6/uLNormal3.60-5.00The [facility] Physician GroupComment on above:Performed By: #### SCAN CBC, CMP ####[address] [address] USAWBC (Bld) [#/Vol]2.2 10*3/uLLow3.8-11.6The [facility] Physician GroupComment on above:Performed By: #### SCAN CBC, CMP ####[address] [address] USASerum or plasma IgA measurement (mass/volume)Ordered By: Fabiola Marinelli on 72-55-0336JyP [Mass/Vol]IgA [Mass/volume] in Serum or ZtvjcdXii78-751Tgronvswy65 Allen Streeterum or plasma IgG measurement (mass/volume)Ordered By: Fabiola Marinelli on 49-28-5468MgH [Mass/Vol]IgG [Mass/volume] in Serum or JgtjgpYtc645-1034YqgnqvbdvRiverview Health Instituteerum or plasma IgM measurement (mass/volume)Ordered By: Fabiola Marinelli on 70-62-0817RrC [Mass/Vol]IgM [Mass/volume] in Serum or NdtyrmKiu92-079 [facility]view Health Instituteerum or plasma albumin/globulin mass ratio Ordered By: Fabiola Marinelli on 81-37-1037Jlxcbrs/Globulin [Mass ratio]Serum or plasma albumin/globulin mass ratioRiverview Health Instituteerum or plasma anion gap determinationOrdered By: Fabiola Marinelli on 81-45-9447Itgfb gap [Moles/Vol] Serum or plasma anion gap determination6.0-15.0[facility] Sodium [Moles/volume] in Serum or PlasmaOrdered By: Fabiola Marinelli on 11-16-2024 Sodium [Moles/Vol]Sodium [Moles/volume] in Serum or Aipjui820-438UsqxkqdqjSalem City HospitalUrea nitrogen [Mass/volume] in Serum or PlasmaOrdered By: Fabiola Marinelli on 24-61-7117Zpig nitrogen [Mass/Vol]Urea nitrogen [Mass/volume] in Serum or Plasma7-25[facility] HospitalWBC Auto (Bld) [#/Vol] Ordered By: Fabiola Marinelli on 06-40-1807XAF (Bld) [#/Vol]Leukocytes [#/volume] in Blood by Automated countLow3.8-11.6FPremier Health Comprehensive Metabolic Panelon 80-02-5504Xgymoit [Mass/Vol]3.6 g/dLNormal 3.5-5.7The [facility] Physician GroupComment on above:Performed By: #### CMP ####[facility] [address] [place] [address] [place] Albumin/Globulin [Mass ratio]1.9 {ratio}NormalThe [facility] Comment on above:Performed By: #### CMP ####[facility] [place] [address] USAALP [Catalytic activity/Vol]84 U/NUcfayh63-966 The [facility] Physician GroupComment on above:Performed By: #### CMP ####[place] [address] USAALT [Catalytic activity/Vol]12 U/LNormal7-52The [facility] Physician GroupComment on above:Performed By: #### CMP ####[place] [address] USAAnion gap [Moles/Vol]11.6 mmol/LNormal6.0-15.0The [facility] Physician GroupComment on above:Performed By: #### CMP ####[place] [address] USAAST [Catalytic activity/Vol]26 U/THtjpyk46-79Ttl [facility] Physician GroupComment on above: Performed By: #### CMP ####[place] [address] USABilirubin [Mass/Vol]0.8 mg/dLNormal0.3-1.0The [facility] Physician GroupComment on above:Performed By: #### CMP ####[place] [address] USACalcium [Mass/Vol]8.7 mg/dLNormal8.6-10.3The [facility] Physician GroupComment on above:Performed By: #### CMP ####[place] [address] USAChloride [Moles/Vol]105 mmol/IXaqexo08-403Xue [facility] Comment on above:Performed By: #### CMP ####[place] [address] USACO2 [Moles/Vol]28.5 mmol/BOoxeaz81.0-31.0The [facility] Physician GroupComment on above:Performed By: #### CMP ####[place] [address] USACreatinine [Mass/Vol] 1.12 mg/dLNormal0.60-1.20The [facility] Physician GroupComment on above:Performed By: #### CMP ####[place] [address] USACreatinine Clr Calc Iikutubx02.40NormalThe [facility] Comment on above:Result Comment: PERFORMED BY:[place] [address] [address] [place], [place] [phone] MEDICAL DIRECTORTAVAI SCHMIDT M.D.Performed By: #### CMP ####[address] [address] USAEstimated GFR53.896 mL/Min NormalThe [facility] Physician GroupComment on above:Performed By: #### CMP ####[address] [address] [place] Globulin (S) [Mass/Vol]1.9 g/dLShorePoint Health Port Charlotte Physician [facility] Medical CenterComment on above:Performed By: #### CMP ####[address] [address] USAGlucose [Mass/Vol]117 mg/bLOawm68-591Kxx [facility] CenterComment on above:Result Comment: Random Glucose Reference Range is dependent on time and content of last meal. Glucose of more than 200 mg/dL in a nonstressed, ambulatory subject supports the diagnosis of Diabetes Mellitus. ADA recommended reference rangePerformed By: #### CMP ####[address] [address] USAPotassium [Moles/Vol]4.1 mmol/LNormal3.5-5.1The [facility]ician [facility] CenterComment on above:Performed By: #### CMP ####[address] [address] USAProtein [Mass/Vol]5.5 g/dLLow6.4-8.9The [facility] Physician GroupComment on above:Performed By: #### CMP ####[address] [address] USASodium [Moles/Vol]141 mmol/IUujqvq898-431Ejw [facility] CenterComment on above:Performed By: #### CMP ####[address] [address] USAUrea nitrogen [Mass/Vol]16 mg/dLNormal7-25The [facility] Physician GroupComment on above: Performed By: #### CMP ####[facility] [address] [place] [address] [facility] M[facility]ICOComprehensive metabolic panelon 10-94-5570Zlbebxc [Mass/Vol]3.6 g/dL3.5 - 5.7 g/dLNOMS HealthcareAlbumin/Globulin [Mass ratio]1.9 {ratio}NOMS HealthcareALP [Catalytic activity/Vol]84 U/L34 - 104 U/LNOMS HealthcareALT [Catalytic activity/Vol]12 U/L7 - 52 U/LNOMS HealthcareAnion gap [Moles/Vol]11.6 mmol/L6.0 - 15.0 meq/LNOMS HealthcareAST [Catalytic activity/Vol]26 U/L13 - 39 U/LNOMS HealthcareBilirubin [Mass/Vol]0.8 mg/dL0.3 - 1.0 mg/dLNOMS HealthcareCalcium [Mass/Vol]8.7 mg/dL8.6 - 10.3 mg/dLNOMS HealthcareChloride [Moles/Vol]105 mmol/L98 - 107 mmol/LNOMS HealthcareCO2 [Moles/Vol]28.5 mmol/L21.0 - 31.0 mmol/LNOMS HealthcareCreatinine (U) [Mass/Vol] 1.12 mg/dL0.60 - 1.20 mg/dLNOMS HealthcareCREATININE CLR CALC LHNEVLEV93.4NOMS HealthcareGFR/1.73 sq M.predicted MDRD (S/P/Bld) [Vol rate/Area]53.896 mL/min/{1.73_m2}mL/MinNOMS HealthcareGlobulin (S) [Mass/Vol]1.9 g/dLNOMS HealthcareGlucose [Mass/Vol]117 mg/bQVtzy42 - 100 mg/dLNOPR HealthcareComment on above:Random Glucose Reference Range is dependent on time and content of last meal. Glucose of more than 200 mg/dL in a nonstressed, ambulatory subject supports the diagnosis of Diabetes Mellitus. ADA recommended reference range Interpretation and review of laboratory resultsAbnormalNOMS HealthcarePotassium [Moles/Vol]4.1 mmol/L3.5 - 5.1 mmol/LNOMS HealthcareProtein [Mass/Vol]5.5 g/dL Low6.4 - 8.9 g/dLNOPR HealthcareSodium [Moles/Vol]141 mmol/L136 - 145 mmol/LNOMS HealthcareUrea nitrogen [Mass/Vol]16 mg/dL7 - 25 mg/dLNOMS HealthcareNOMS HealthcareHypochromia LM Ql (Bld)Ordered By: Fabiola Marinelli on 62-00-2346Pbeuxeedydi Ql (Bld)Hypochromia [Presence] in Blood by Light microscopySalem City HospitalMicrocytes LM Ql (Bld)Ordered By: Fabiola Marinelli on 10-27-2024 Microcytes Ql (Bld)Microcytes [Presence] in Blood by Light microscopySalem City HospitalPlatelet morphology finding [Identifier] in BloodOrdered By: Fabiola Marinelli on 09-32-5187Jyaucbnz morphology finding Nom (Bld)Platelet morphology finding [Identifier] in BloodNoOhioHealth Marion General Hospital Scan and CBCon 79-43-4831Wlzgnwdillow Ql (Bld)ModerateNormalThe [facility] Physician GroupComment on above:Performed By: #### SCAN CBC ####[address] [address] USABasophils (Bld) [#/Vol]0.0 10*3/uLNormal0.0-0.2The [facility] Physician GroupComment on above: Performed By: #### SCAN CBC ####[address] [address] USABasophils/100 WBC (Bld)0.4 %Normal.The [facility] Physician GroupComment on above:Performed By: #### SCAN CBC ####[address] [address] USAEosinophils (Bld) [#/Vol]0.5 10*3/uLHigh0.0-0.45The [facility] Physician GroupComment on above: Performed By: #### SCAN CBC ####[address] [address] USAEosinophils/100 WBC (Bld)21.2 %Normal.The [facility] Physician GroupComment on above:Performed By: #### SCAN CBC ####[address] [address] USAErythrocyte distribution width (RBC) [Ratio]18.6 %High11.9-15.3The [facility]ician [facility] Comment on above:Performed By: #### SCAN CBC ####[address] [address] USAHematocrit (Bld) [Volume fraction]29.0 %Low34.0-46.4The [facility] Physician GroupComment on above:Performed By: #### SCAN CBC ####[address] [address] USAHemoglobin (Bld) [Mass/Vol]9.3 g/dLLow11.8-15.4The [facility] Comment on above:Performed By: #### SCAN CBC ####[address] [address] USAHypochromasiaSlightNormalThe [facility] Physician GroupComment on above:Performed By: #### SCAN CBC ####[address] [address] USALymphocytes (Bld) [#/Vol]0.5 10*3/uLLow1.00-4.8The [facility] Physician GroupComment on above: Performed By: #### SCAN CBC ####[address] [address] USALymphocytes/100 WBC (Bld)23.1 %Normal.The [facility] Physician GroupComment on above:Performed By: #### SCAN CBC ####[address] [address] USAMCH (RBC) [Entitic mass]26.0 hqKkiarr89.7-34.3The [facility] Physician GroupComment on above: Performed By: #### SCAN CBC ####[address] [address] USAMCV (RBC) [Entitic vol]81.0 dLIqdusr41-319Dkt [facility] Physician GroupComment on above:Performed By: #### SCAN CBC ####[address] [address] USAMean Corpuscular HGB Conc32.1 g/lBGobxun69.0-35.0The [facility] Physician GroupComment on above:Performed By: #### SCAN CBC ####[address] [address] USAMicrocytosisSlightNoAtrium Health Cabarrus Physician GroupComment on above:Performed By: #### SCAN CBC ####[address] [address] USAMonocytes (Bld) [#/Vol]0.5 10*3/uLNormal0.0-0.8The [facility] Physician GroupComment on above: Performed By: #### SCAN CBC ####[address] [address] USAMonocytes/100 WBC (Bld)20.8 %Normal.The [facility] Physician GroupComment on above:Performed By: #### SCAN CBC ####[address] [address] USANeutrophils (Bld) [#/Vol]0.8 10*3/uLLow1.8-7.7The [facility] Physician GroupComment on above: Performed By: #### SCAN CBC ####[address] [address] USANeutrophils/100 WBC (Bld)34.5 %Normal.The [facility] Physician GroupComment on above:Performed By: #### SCAN CBC ####[address] [address] USANRBC%0.1 /100{WBC} Normal0-0.5The [facility] Physician GroupComment on above:Performed By: #### SCAN CBC ####[address] [address] USA OvalocytesSlightNoAtrium Health Cabarrus Physician GroupComment on above:Performed By: #### SCAN CBC ####[place] [address] USAPlatelet EstimateDecreasedNormalNoAtrium Health Cabarrus Physician [facility] Comment on above:Performed By: #### SCAN CBC ####[address] [address] USAPlatelet mean volume (Bld) [Entitic vol]8.3 fLNormal6.3-10.7The [facility] Physician GroupComment on above:Performed By: #### SCAN CBC ####[address] [address] USAPlatelet MorphologyNormalNormalNoAtrium Health Cabarrus Physician [facility] Comment on above:Result Comment: PERFORMED BY:[address] TSERINGRobertoErnaROMA, [place] [phone] MEDICAL DIRECTORTAVIA SCHMIDT M.D.Performed By: #### SCAN CBC ####[address] [address] USAPlatelets (Bld) [#/Vol]49 10*3/xRJcj836-552Gjn [facility] Physician GroupComment on above: Performed By: #### SCAN CBC ####[address] [address] USAPoikilocytosisSlightNoAtrium Health Cabarrus Physician [facility] CenterComment on above:Performed By: #### SCAN CBC ####[address] [address] USARBC (Bld) [#/Vol]3.59 10*6/uLLow 3.60-5.00The [facility] Physician GroupComment on above:Performed By: #### SCAN CBC ####[address] [address] USAWBC (Bld) [#/Vol]2.2 10*3/uLLow3.8-11.6The [facility] Physician GroupComment on above:Performed By: #### SCAN CBC ####[address] [address] USAMR abdomen wo/w conon 05-08-0855OQ abdomen wo/w con NormalThe [facility] Physician GroupDacrocytes [Presence] in Blood by Light microscopyOrdered By: Fabiola Marinelli on 58-50-6171Pqpyglnqts LM Ql (Bld)Teardrop cell detectionSalem City HospitalDiff and CBCon 35-93-7057Nukdsvkbfdgp Ql (Bld)ModerateNoAtrium Health Cabarrus Physician GroupComment on above:Performed By: #### DIFF CBC ####[address] [address] USAEosinophils/100 WBC (Bld)18 %High1-3The [facility] Comment on above:Performed By: #### DIFF CBC ####[address] [address] USAErythrocyte distribution width (RBC) [Ratio]18.1 %High11.9-15.3The [facility] Physician GroupComment on above: Performed By: #### DIFF CBC ####[address] [address] USAGiant Platelet Tally1 /100{WBC}NormalThe [facility] Physician GroupComment on above:Performed By: #### DIFF CBC ####[address] [address] USAHematocrit (Bld) [Volume fraction]29.6 %Low34.0-46.4The [facility] Physician GroupComment on above:Performed By: #### DIFF CBC ####[address] [address] USAHemoglobin (Bld) [Mass/Vol]9.6 g/dLLow11.8-15.4The [facility] Physician GroupComment on above:Performed By: #### DIFF CBC ####[address] [address] [place] HypochromasiaSlightNoAtrium Health Cabarrus Physician GroupComment on above:Performed By: #### DIFF CBC ####[address] [address] USALarge PlateletsSlightShorePoint Health Port Charlotte Physician GroupComment on above:Result Comment: PERFORMED BY:[address]PATRICIA ROSADOHANCOCKS BRIDGE, [place] [phone] MEDICAL DIRECTORTAVIA HORAN M.D.Performed By: #### DIFF CBC ####[address] [address] USALymphocytes/100 WBC (Bld)29 %Cdzhvw18-99Kpw [facility] Physician GroupComment on above:Performed By: #### DIFF CBC ####[place] [address] [facility] ([facility]) [Entitic mass]26.1 hdFrguie04.7-34.3The [facility] Physician GroupComment on above:Performed By: #### DIFF CBC ####[place] [address] [facility] (RBC) [Entitic vol]80.4 gDCbdycc57-168Lea [facility] Physician GroupComment on above:Performed By: #### DIFF CBC ####[place] [address] USAMean Corpuscular HGB Conc32.4 g/vJQebbju84.0-35.0The [facility] Physician GroupComment on above:Performed By: #### DIFF CBC ####[address] [address] USAMicrocytosisSlightShorePoint Health Port Charlotte Physician GroupComment on above:Performed By: #### DIFF CBC ####[place] [address] USAMonocytes/100 WBC (Bld)19 %High2-11The [facility] Physician GroupComment on above:Performed By: #### DIFF CBC ####[address] [address] USAOvalocytesSlightNoAtrium Health Cabarrus Physician GroupComment on above: Performed By: #### DIFF CBC ####[place] [address] USAPlatelet EstimateDecreasedNormalShorePoint Health Port Charlotte Physician GroupComment on above:Performed By: #### DIFF CBC ####[address] [address] USAPlatelet mean volume (Bld) [Entitic vol]8.4 fLNormal6.3-10.7The [facility] Physician GroupComment on above:Performed By: #### DIFF CBC ####[address] [address] USAPlatelets (Bld) [#/Vol]44 10*3/wHIzr272-018Zds [facility] Physician GroupComment on above:Performed By: #### DIFF CBC ####[address] [address] USA PoikilocytosisSHaywood Regional Medical Center Physician GroupComment on above: Performed By: #### DIFF CBC ####[place] [address] USAPolychromasiaSHaywood Regional Medical Center Physician GroupComment on above:Performed By: #### DIFF CBC ####[address] [address] USARBC (Bld) [#/Vol]3.68 10*6/uLNormal 3.60-5.00The [facility] Physician GroupComment on above:Performed By: #### DIFF CBC ####[place] [address] [place] Segmented neutrophils/100 WBC (Bld)35 %Gcf40-22Fsa [facility] Comment on above:Performed By: #### DIFF CBC ####[address] [address] USATear Drop CellsSHaywood Regional Medical Center Physician GroupComment on above:Performed By: #### DIFF CBC ####[address] [address] USAWBC (Bld) [#/Vol]1.5 10*3/uLLow3.8-11.6The [facility] Physician GroupComment on above:Performed By: #### DIFF CBC ####[place] [address] USAEosinophils/100 WBC Manual cnt (Bld)Ordered By: Fabiola Marinelli on 11-93-2706Vcjjyipkryp/100 WBC (Bld)Eosinophils/100 leukocytes in Blood by Manual countHigh1-3FPremier HealthGiant platelets/100 leukocytes [Ratio] in Blood by Manual countOrdered By: Fabiola Marinelli on 10-18-2024 Giant platelets/100 WBC Manual cnt (Bld) [Ratio]Giant platelets/100 leukocytes [Ratio] in Blood by Manual countSalem City HospitalLymphocytes/100 WBC Manual cnt (Bld)Ordered By: Fabiola Marinelli on 04-47-3931Bjyexxcvdne/100 WBC (Bld)Lymphocytes/100 leukocytes in Blood by Manual zatsw13-32CpsnvrouiSalem City HospitalMonocytes/100 WBC Manual cnt (Bld)Ordered By: Fabiola Marinelli on 13-99-6444Jsijemzra/100 WBC (Bld)Monocytes/100 leukocytes in Blood by Manual countHigh2-11Salem City HospitalPlatelets Large [Presence] in Blood by Light microscopyOrdered By: Fabiola Marinelli on 48-94-0109Mmlxilcip Large LM Ql (Bld)Platelets Large [Presence] in Blood by Light microscopySalem City HospitalPlatelets Large LM Ql (Bld)SlightSalem City HospitalPolychromasia [Presence] in Blood by Light microscopyOrdered By: Fabiola Marinelli on 11-99-1296Tdumvzafkmthz LM Ql (Bld)Polychromasia [Presence] in Blood by Light microscopyRiverview Health Instituteegmented neutrophils/100 WBC Manual cnt (Bld)Ordered By: Fabiola Marinelli on 97-90-9749Iwdbdfgha neutrophils/100 WBC (Bld)Manual blood segmented neutrophils/100 leukocytesLow 50-70Salem City HospitalComprehensive Metabolic Panelon 10-04-2024 Albumin [Mass/Vol]3.7 g/dLNormal3.5-5.7The [facility] Physician GroupComment on above:Performed By: #### CMP, SCAN CBC ####[facility] [address] [place] [address] USAAlbumin/Globulin [Mass ratio]1.7 {ratio}Normal The [facility] Physician GroupComment on above:Performed By: #### CMP, SCAN CBC ####[facility] [address] [place] [address] USAALP [Catalytic activity/Vol]99 U/ZRovbux41-496Ohs [facility] Physician GroupComment on above:Performed By: #### CMP, SCAN CBC ####[place] [address] [place] [address] USAALT [Catalytic activity/Vol]14 U/LNormal7-52 The [facility] Physician GroupComment on above:Performed By: #### CMP, SCAN CBC ####[facility] [address] [place] [address] USAAnion gap [Moles/Vol]10.0 mmol/LNormal6.0-15.0The [facility] Physician GroupComment on above:Performed By: #### CMP, SCAN CBC ####[address] [address] USAAST [Catalytic activity/Vol]30 U/AFttxbl45-98 The [facility] Physician GroupComment on above:Performed By: #### CMP, SCAN CBC ####[address] [address] [place] Bilirubin [Mass/Vol]0.7 mg/dLNormal0.3-1.0The [facility] Physician GroupComment on above:Performed By: #### CMP, SCAN CBC ####[address] [address] USACalcium [Mass/Vol]8.6 mg/dLNormal8.6-10.3The [facility] Physician GroupComment on above:Performed By: #### CMP, SCAN CBC ####[address] [address] [place] Chloride [Moles/Vol]104 mmol/CTkaejf71-377Rcw [facility] Physician GroupComment on above:Performed By: #### CMP, SCAN CBC ####[facility] [address] [place] [address] USACO2 [Moles/Vol]29.1 mmol/FFwnlcu10.0-31.0The [facility] Physician GroupComment on above:Performed By: #### CMP, SCAN CBC ####[facility] [place] [address] [facility] Creatinine [Mass/Vol]1.00 mg/dLNormal0.60-1.20The [facility] Comment on above:Performed By: #### CMP, SCAN CBC ####[place] [address] [place] [address] USACreatinine Clr Calc Jgjcffon33.36 NormalThe [facility] Physician GroupComment on above:Result Comment: PERFORMED BY:[address] [place], [place] [phone] MEDICAL DIRECTORTAVIA SCHMIDT M.D.Performed By: #### CMP, SCAN CBC ####[place] [address] [place] [id number] USAGFR/1.73 sq M.predicted MDRD (S/P/Bld) [Vol rate/Area]mL/min/{1.73_m2} NormalThe [facility] Physician GroupComment on above:Performed By: #### CMP, SCAN CBC ####[place] [address] [place] Globulin (S) [Mass/Vol]2.2 g/dLNormalThe [facility] Physician GroupComment on above:Performed By: #### CMP, SCAN CBC ####[address] [address] USAGlucose [Mass/Vol]153 mg/lBOrkz40-497Dkp [facility] Physician GroupComment on above:Result Comment: Random Glucose Reference Range is dependent on time and content of last meal. Glucose of more than 200 mg/dL in a nonstressed, ambulatory subject supports the diagnosis of Diabetes Mellitus. ADA recommended reference rangePerformed By: #### CMP, SCAN CBC ####[place] [address] [place] Potassium [Moles/Vol]4.1 mmol/LNormal3.5-5.1The [facility] Physician GroupComment on above:Performed By: #### CMP, SCAN CBC ####[place] [address] USAProtein [Mass/Vol]5.9 g/dLLow6.4-8.9 The [facility] Physician GroupComment on above:Performed By: #### CMP, SCAN CBC ####[facility] [address] [place] [id number] USASodium [Moles/Vol]139 mmol/HIyuqex693-368Ywk [facility] Physician GroupComment on above: Performed By: #### CMP, SCAN CBC ####[facility] [address] [place] [address] USAUrea nitrogen [Mass/Vol]14 mg/dLNormal7-25The [facility] Physician GroupComment on above:Performed By: #### CMP, SCAN CBC ####[facility] [address] Comprehensive metabolic panelon 56-55-4851Rjglwaz [Mass/Vol]3.7 g/dL3.5 - 5.7 g/dLNOPR HealthcareAlbumin/Globulin [Mass ratio]1.7 {ratio}NOMS HealthcareALP [Catalytic activity/Vol]99 U/L34 - 104 U/LNOMS HealthcareALT [Catalytic activity/Vol]14 U/L7 - 52 U/LNOMS HealthcareAnion gap [Moles/Vol]10 mmol/L6.0 - 15.0 meq/LNOMS HealthcareAST [Catalytic activity/Vol]30 U/L13 - 39 U/LNOMS HealthcareBilirubin [Mass/Vol]0.7 mg/dL0.3 - 1.0 mg/dLNOPR HealthcareCalcium [Mass/Vol]8.6 mg/dL8.6 - 10.3 mg/dLNOPR HealthcareChloride [Moles/Vol]104 mmol/L 98 - 107 mmol/LNOMS HealthcareCO2 [Moles/Vol]29.1 mmol/L21.0 - 31.0 mmol/LNOMS HealthcareCreatinine (U) [Mass/Vol]1 mg/dL0.60 - 1.20 mg/dLNOPR Healthcare CREATININE CLR CALC QGDCPODH14.36NOPR HealthcareESTIMATED GFRmL/MinNOPR HealthcareGlobulin (S) [Mass/Vol]2.2 g/dLNOPR HealthcareGlucose [Mass/Vol]153 mg/zMTnjm44 - 100 mg/dLNOPR HealthcareComment on above:Random Glucose Reference Range is dependent on time and content of last meal. Glucose of more than 200 mg/dL in a nonstressed, ambulatory subject supports the diagnosis of Diabetes Mellitus. ADA recommended reference range Interpretation and review of laboratory resultsAbnormalNOMS HealthcarePotassium [Moles/Vol]4.1 mmol/L3.5 - 5.1 mmol/LNOMS HealthcareProtein [Mass/Vol]5.9 g/dL Low6.4 - 8.9 g/dLNOMS HealthcareSodium [Moles/Vol]139 mmol/L136 - 145 mmol/LNOMS HealthcareUrea nitrogen [Mass/Vol]14 mg/dL7 - 25 mg/dLNOPR HealthcareNOPR HealthcareScan and CBCon 70-37-9781Ikfihfsicrgp Ql (Bld)ModerateNormalThe [facility] Physician GroupComment on above:Performed By: #### CMP, SCAN CBC ####[address] [address] [place] Basophils (Bld) [#/Vol]0.0 10*3/uLNormal0.0-0.2The [facility] Comment on above:Performed By: #### CMP, SCAN CBC ####[address] [address] USABasophils/100 WBC (Bld)0.5 %Normal. The [facility] Physician GroupComment on above:Performed By: #### CMP, SCAN CBC ####[address] [address] [place] Eosinophils (Bld) [#/Vol]0.5 10*3/uLHigh0.0-0.45The [facility] Comment on above:Performed By: #### CMP, SCAN CBC ####[address] [address] USAEosinophils/100 WBC (Bld)18.9 %Normal .The [facility] Physician GroupComment on above:Performed By: #### CMP, SCAN CBC ####[address] [address] [place] Erythrocyte distribution width (RBC) [Ratio]17.9 %High11.9-15.3The [facility] Physician GroupComment on above:Performed By: #### CMP, SCAN CBC ####[place] [address] USAHematocrit (Bld) [Volume fraction]30.4 %Low34.0-46.4The [facility] Physician GroupComment on above:Performed By: #### CMP, SCAN CBC ####[place] [address] USAHemoglobin (Bld) [Mass/Vol]9.9 g/dLLow 11.8-15.4The [facility] Physician GroupComment on above:Performed By: #### CMP, SCAN CBC ####[place] [address] USAHypochromasiaSlightNormalThSt. Luke's Fruitland Physician GroupComment on above: Performed By: #### CMP, SCAN CBC ####[place] [address] USALymphocytes (Bld) [#/Vol]0.6 10*3/uLLow1.00-4.8The [facility] Physician GroupComment on above:Performed By: #### CMP, SCAN CBC ####[place] [address] [place] Lymphocytes/100 WBC (Bld)24.6 %Normal.The [facility] Physician GroupComment on above:Performed By: #### CMP, SCAN CBC ####[place] [address] USAMCH (RBC) [Entitic mass]26.4 hvBlycan81.7-34.3 The [facility] Physician GroupComment on above:Performed By: #### CMP, SCAN CBC ####[place] [address] USAMCV (RBC) [Entitic vol]81.4 yZJccbig78-011Jwp [facility] Physician GroupComment on above:Performed By: #### CMP, SCAN CBC ####[place] [address] USAMean Corpuscular HGB Conc32.4 g/dLNormal 32.0-35.0The [facility] Physician GroupComment on above:Performed By: #### CMP, SCAN CBC ####[place] [address] USAMicrocytosisSlightNoAtrium Health Cabarrus Physician GroupComment on above: Performed By: #### CMP, SCAN CBC ####[place] [address] USAMonocytes (Bld) [#/Vol]0.5 10*3/uLNormal0.0-0.8The [facility] Physician GroupComment on above:Performed By: #### CMP, SCAN CBC ####[place] [address] [place] Monocytes/100 WBC (Bld)21.7 %Normal.The [facility] Physician GroupComment on above:Performed By: #### CMP, SCAN CBC ####[place] [address] USANeutrophils (Bld) [#/Vol]0.8 10*3/uLLow1.8-7.7 The [facility] Physician GroupComment on above:Performed By: #### CMP, SCAN CBC ####[place] [address] [place] Neutrophils/100 WBC (Bld)34.3 %Normal.The [facility] Physician GroupComment on above:Performed By: #### CMP, SCAN CBC ####[place] [address] USANRBC%0.0 /100{WBC}Normal0-0.5The [facility] Physician GroupComment on above:Performed By: #### CMP, SCAN CBC ####[place] [address] USAOvalocytesSlight NormalThe [facility] Physician GroupComment on above:Performed By: #### CMP, SCAN CBC ####[place] [address] [place] Platelet EstimateDecreasedNormalNormAultman Orrville Hospitale [facility] Physician GroupComment on above:Performed By: #### CMP, SCAN CBC ####[facility] [place] [address] USAPlatelet mean volume (Bld) [Entitic vol]8.7 fL Normal6.3-10.7The [facility] Physician GroupComment on above:Performed By: #### CMP, SCAN CBC ####[address] [address] USAPlatelet MorphologyNormalNormalNoAtrium Health Cabarrus Physician Group Comment on above:Result Comment: PERFORMED BY:[address] [place], [place] [phone] MEDICAL DIRECTORTAVIA SCHMIDT M.D.Performed By: #### CMP, SCAN CBC ####[address] [address] [place] Platelets (Bld) [#/Vol]53 10*3/vJJde609-208Woq [facility] Physician GroupComment on above:Performed By: #### CMP, SCAN CBC ####[address] [address] USAPoikilocytosisSlightNoAtrium Health Cabarrus Physician [facility] CenterComment on above:Performed By: #### CMP, SCAN CBC ####[address] [address] USARBC (Bld) [#/Vol]3.74 10*6/uLNormal3.60-5.00The [facility] Physician GroupComment on above:Performed By: #### CMP, SCAN CBC ####[address] [address] USAWBC (Bld) [#/Vol]2.4 10*3/uLLow3.8-11.6The [facility] Physician GroupComment on above:Performed By: #### CMP, SCAN CBC ####[address] [address] USABasophils/100 WBC Manual cnt (Bld)Ordered By: Fabiola Marinelli on 60-03-5119Ahzhghmoi/100 WBC (Bld) Basophils/100 leukocytes in Blood by Manual count0-2FPremier HealthComprehensive Metabolic Panelon 08-05-5578Egatkuo [Mass/Vol]3.6 g/dLNormal 3.5-5.7The [facility] Physician GroupComment on above:Performed By: #### DIFF CBC, CMP ####[place] [address] [place] [address] USAAlbumin/Globulin [Mass ratio]2.1 {ratio}NormalThe [facility] Comment on above:Performed By: #### DIFF CBC, CMP ####[place] [address] [place] [address] USAALP [Catalytic activity/Vol]88 U/L Rwtpxm53-151Tqi [facility] Physician GroupComment on above:Performed By: #### DIFF CBC, CMP ####[address] [address] USAALT [Catalytic activity/Vol]13 U/LNormal7-52The [facility] Physician GroupComment on above:Performed By: #### DIFF CBC, CMP ####[address] [address] USAAnion gap [Moles/Vol]10.1 mmol/LNormal6.0-15.0The [facility] Physician GroupComment on above:Performed By: #### DIFF CBC, CMP ####[address] [address] USAAST [Catalytic activity/Vol]27 U/XBoogls80-55Eie [facility] Physician GroupComment on above:Performed By: #### DIFF CBC, CMP ####[address] [address] USABilirubin [Mass/Vol]0.7 mg/dL Normal0.3-1.0The [facility] Physician GroupComment on above:Performed By: #### DIFF CBC, CMP ####[address] [address] USACalcium [Mass/Vol]8.7 mg/dLNormal8.6-10.3The [facility] Comment on above:Performed By: #### DIFF CBC, CMP ####[address] [place] [address] USAChloride [Moles/Vol]106 mmol/LNormal 98-107The [facility] Physician GroupComment on above:Performed By: #### DIFF CBC, CMP ####[place] [address] [place] CO2 [Moles/Vol]28.1 mmol/LDnuomz89.0-31.0The [facility] Physician GroupComment on above:Performed By: #### DIFF CBC, CMP ####[place] [address] USACreatinine [Mass/Vol]0.88 mg/dLNormal0.60-1.20 The [facility] Physician GroupComment on above:Performed By: #### DIFF CBC, CMP ####[place] [address] [place] Creatinine Clr Calc Jclahczk22.60NormOrlando Health - [facility] Physician GroupComment on above:Result Comment: PERFORMED BY:[address] TSERINGRobertoGEORGETOWN, [place] [phone] MEDICAL DIRECTORTAVIA HORAN M.D.Performed By: #### DIFF CBC, CMP ####[place] [address] USAGFR/1.73 sq M.predicted MDRD (S/P/Bld) [Vol rate/Area]mL/min/{1.73_m2}NormalThe [facility] Physician [facility] CenterComment on above:Performed By: #### DIFF CBC, CMP ####[place] [address] USAGlobulin (S) [Mass/Vol]1.7 g/dLNoAtrium Health Cabarrus Physician [facility] Medical CenterComment on above:Performed By: #### DIFF CBC, CMP ####[place] [address] USAGlucose [Mass/Vol]101 mg/jXAisg15-261His [facility] Physician GroupComment on above: Result Comment: Random Glucose Reference Range is dependent on time and content of last meal. Glucose of more than 200 mg/dL in a nonstressed, ambulatory subject supports the diagnosis of Diabetes Mellitus. ADA recommended reference rangePerformed By: #### DIFF CBC, CMP ####[place] [place] [address] USAPotassium [Moles/Vol]4.2 mmol/LNormal3.5-5.1 The [facility] Physician GroupComment on above:Performed By: #### DIFF CBC, CMP ####[place] [place] [id number] USAProtein [Mass/Vol]5.3 g/dLLow6.4-8.9The [facility] Physician GroupComment on above: Performed By: #### DIFF CBC, CMP ####[address] [place] [address] USASodium [Moles/Vol]140 mmol/ZNaiyww469-971Zmf [facility] Physician GroupComment on above:Performed By: #### DIFF CBC, CMP ####[place] [address] USAUrea nitrogen [Mass/Vol]17 mg/dLNormal7-25The [facility] Physician GroupComment on above:Performed By: #### DIFF CBC, CMP ####[place] [address] [place] [phone] USAComprehensive metabolic panelon 09-27-2024 Albumin [Mass/Vol]3.6 g/dL3.5 - 5.7 g/dLNOMS HealthcareAlbumin/Globulin [Mass ratio]2.1 {ratio}NOMS HealthcareALP [Catalytic activity/Vol]88 U/L34 - 104 U/L NOMS HealthcareALT [Catalytic activity/Vol]13 U/L7 - 52 U/LNOMS HealthcareAnion gap [Moles/Vol]10.1 mmol/L6.0 - 15.0 meq/LNOMS HealthcareAST [Catalytic activity/Vol]27 U/L13 - 39 U/LNOMS HealthcareBilirubin [Mass/Vol]0.7 mg/dL0.3 - 1.0 mg/dLNOMS HealthcareCalcium [Mass/Vol]8.7 mg/dL8.6 - 10.3 mg/dLNOMS HealthcareChloride [Moles/Vol]106 mmol/L98 - 107 mmol/LNOMS HealthcareCO2 [Moles/Vol]28.1 mmol/L21.0 - 31.0 mmol/LNOMS HealthcareCreatinine (U) [Mass/Vol] 0.88 mg/dL0.60 - 1.20 mg/dLNOPR HealthcareCREATININE CLR CALC VRXZGIAT56.6NOMS HealthcareESTIMATED GFRmL/MinNOPR HealthcareGlobulin (S) [Mass/Vol]1.7 g/dLNOPR HealthcareGlucose [Mass/Vol]101 mg/dNXvln28 - 100 mg/dLNOPR HealthcareComment on above:Random Glucose Reference Range is dependent on time and content of last meal. Glucose of more than 200 mg/dL in a nonstressed, ambulatory subject supports the diagnosis of Diabetes Mellitus. ADA recommended reference range Interpretation and review of laboratory resultsAbnormalNOPR HealthcarePotassium [Moles/Vol]4.2 mmol/L3.5 - 5.1 mmol/LNOMS HealthcareProtein [Mass/Vol]5.3 g/dL Low6.4 - 8.9 g/dLNOPR HealthcareSodium [Moles/Vol]140 mmol/L136 - 145 mmol/LNOMS HealthcareUrea nitrogen [Mass/Vol]17 mg/dL7 - 25 mg/dLNOWright Memorial HospitalNOPR HealthcareDIFF AND CBCon 94-32-5496Wvocyynygdmv Ql (Bld)ModerateNOWright Memorial Hospital Basophils/100 WBC (Bld)1 %0 - 2 %NOMS HealthcareEosinophils/100 WBC (Bld)13 % High1 - 3 %[facility]iberty HospitalErythrocyte distribution width (RBC) [Ratio]17.9 %High 11.9 - 15.3 %NOM HealthcareHematocrit (Bld) [Volume fraction]29.6 %Low34.0 - 46.4 %NOMColumbia Regional HospitalHemoglobin (Bld) [Mass/Vol]9.4 g/dLLow11.8 - 15.4 g/dLNOWright Memorial HospitalHYPOCHROMASIASlightCACHE VALLEY [facility] HealthcareInterpretation and review of laboratory resultsAbnormalLiberty HospitalLymphocytes/100 WBC (Bld)24 %18 - 42 % NOMOzarks Community HospitalH (RBC) [Entitic mass]26.1 pg24.7 - 34.3 pgNOMS HealthcareMCHC (RBC) [Mass/Vol]31.8 g/dLLow32.0 - 35.0 g/dLNOWright Memorial HospitalMCV (RBC) [Entitic vol]82.3 fL80 - 100 fLNOPR HealthcareMICROCYTOSISSlightNOPR Healthcare Monocytes/100 WBC (Bld)12 %High2 - 11 %NOMS HealthcarePLATELET ESTIMATEDecreased NormalNOPR HealthcarePlatelet mean volume (Bld) [Entitic vol]8.3 fL6.3 - 10.7 fL NOMS HealthcarePLATELET MORPHOLOGYNormalNormalNOPR HealthcarePlatelets (Bld) [#/Vol]47 10*3/jBXmd677 - 450 10*3/uLNOPR HealthcareRBC LM.HPF (Urine sed) [#/Area]3.59 10*6/uLLow3.60 - 5.00 10*6/uLNOPR HealthcareSegmented neutrophils/100 WBC (Bld)50 %50 - 70 %NOM HealthcareWBC (Bld) [#/Vol]2 10*3/uL Low3.8 - 11.6 10*3/uLNOMS HealthcareWBC LM.HPF (Urine sed) [#/Area]2 10*3/uLLow 3.8 - 11.6 10*3/uLNOPR HealthcareNOMS HealthcareDiff and CBCon 09-27-2024 Anisocytosis Ql (Bld)ModerateNormalThe [facility] Physician GroupComment on above:Performed By: #### DIFF CBC, CMP ####[place] [place] [address] USABasophils/100 WBC (Bld)1 %Normal0-2The [facility] Physician GroupComment on above:Performed By: #### DIFF CBC, CMP ####[facility] [address] [place] [address] [place] Eosinophils/100 WBC (Bld)13 %High1-3The [facility] Physician GroupComment on above:Performed By: #### DIFF CBC, CMP ####[facility] [address] [place] [address] USAErythrocyte distribution width (RBC) [Ratio] 17.9 %High11.9-15.3The [facility] Physician GroupComment on above:Performed By: #### DIFF CBC, CMP ####[address] [address] USAHematocrit (Bld) [Volume fraction]29.6 %Low34.0-46.4The [facility] Physician GroupComment on above:Performed By: #### DIFF CBC, CMP ####[address] [address] USAHemoglobin (Bld) [Mass/Vol]9.4 g/dLLow11.8-15.4The [facility] Physician GroupComment on above: Performed By: #### DIFF CBC, CMP ####[address] [address] USAHypochromasiaFirstHealth Montgomery Memorial Hospital Physician GroupComment on above:Performed By: #### DIFF CBC, CMP ####[place] [address] USALymphocytes/100 WBC (Bld)24 % Efpdee58-81Kjc [facility]ician [facility] CenterComment on above:Performed By: #### DIFF CBC, CMP ####[address] [address] USAMCH (RBC) [Entitic mass]26.1 pfJixcgs14.7-34.3The [facility] Comment on above:Performed By: #### DIFF CBC, CMP ####[address] [address] USAMCV (RBC) [Entitic vol]82.3 fLNormal 80-100The [facility] Physician [facility] CenterComment on above:Performed By: #### DIFF CBC, CMP ####[address] [address] [place] Mean Corpuscular HGB Conc31.8 g/dLLow32.0-35.0The [facility] Physician [facility] Comment on above:Performed By: #### DIFF CBC, CMP ####[address] [address] USAMicrocytosisSHaywood Regional Medical Center Physician GroupComment on above:Performed By: #### DIFF CBC, CMP ####[address] [address] USAMonocytes/100 WBC (Bld)12 %High2-11The [facility] Physician GroupComment on above:Performed By: #### DIFF CBC, CMP ####[address] [address] USAPlatelet EstimateDecreasedNormalNormOrlando Health - [facility] Hospital Physician Group Comment on above:Performed By: #### DIFF CBC, CMP ####[address] [address] USAPlatelet mean volume (Bld) [Entitic vol]8.3 fLNormal6.3-10.7The [facility] Physician GroupComment on above:Performed By: #### DIFF CBC, CMP ####[address] [address] USAPlatelet MorphologyNormalNormalNormAultman Orrville Hospitale [facility] Physician GroupComment on above:Result Comment: PERFORMED BY:[address]RobertoGEORGETOWN, [place] [phone] MEDICAL DIRECTORTAVIA SCHMIDT M.D.Performed By: #### DIFF CBC, CMP ####[address] [address] [place] Platelets (Bld) [#/Vol]47 10*3/mURsc984-955Pjq [facility] Physician GroupComment on above:Performed By: #### DIFF CBC, CMP ####[address] [address] USARBC (Bld) [#/Vol]3.59 10*6/uLLow3.60-5.00The [facility] Physician GroupComment on above:Performed By: #### DIFF CBC, CMP ####[address] [address] [place] Segmented neutrophils/100 WBC (Bld)50 %Chsskl48-51Pmr [facility] Comment on above:Performed By: #### DIFF CBC, CMP ####[address] [address] USAWBC (Bld) [#/Vol]2.0 10*3/uLLow 3.8-11.6The [facility] Physician GroupComment on above:Performed By: #### DIFF CBC, CMP ####[facility] [place] [id number] [place]AP[place] NaF bone subq (nopr)on 02-12-9129SDS NaF bone subq (nopr)NormalThe [facility] Physician GroupUS liveron 07-49-0088AT liverNormalThe [facility] Physician [facility] CenterAFP Tumor Marker, Serumon 94-93-2050VPY Tumor Marker, Serum4.4 ng/mLNormal0.0-9.2The [facility] Care HospitalComment on above:Result Comment: YOUnite Electrochemiluminescence Immunoassay (ECLIA) Values obtained withdifferent assay methods or kits cannot be used interchangeably. Results cannot be interpreted as absolute evidence of the presence or absence of malignant disease. This test is not interpretable in females. Performed at: - [facility] [id number] Aeronautical Design Engineer: Lang Knight PhD, Phone: [phone] BY:[address] [phone] MEDICAL DIRECTORMOSRI SCHMIDT M.D.Performed By: #### CBC, CMP, PT ####[place] [address] [facility]#### AFPTM ####[facility] ,Alanine aminotransferase [Enzymatic activity/volume] in Serum or PlasmaOrdered By: Garcia Sanchez on 93-45-5852RFL [Catalytic activity/Vol]Alanine aminotransferase [Enzymatic activity/volume] in Serum or Plasma7-[facility] City HospitalAlbumin [Mass/volume] in Serum or Plasma by Bromocresol green (BCG) dye binding methoOrdered By: Garcia Sanchez on 87-21-0187Eemohwd BCG dye [Mass/Vol]Albumin [Mass/volume] in Serum or Plasma by Bromocresol green (BCG) dye binding metho3.5-5.7FPremier HealthAlkaline phosphatase [Enzymatic activity/volume] in Serum or PlasmaOrdered By: Garcia Ly on 49-64-3596JBH [Catalytic activity/Vol]Alkaline phosphatase [Enzymatic activity/volume] in Serum or Uurxts95-148PpwzbptzxSalem City HospitalAspartate aminotransferase [Enzymatic activity/volume] in Serum or Plasma Ordered By: Garcia Ly on 10-20-2338ZAX [Catalytic activity/Vol]Aspartate aminotransferase [Enzymatic activity/volume] in Serum or Aruayx52-27ThnfysfyvSalem City HospitalBasophils Auto (Bld) [#/Vol]Ordered By: Garcia Ly on 52-85-2348Czslocofq (Bld) [#/Vol]Automated basophil count0.0-0.2FPremier HealthBasophils/100 WBC Auto (Bld)Ordered By: Garcia Ly on 48-61-9316Knxekkkxg/100 WBC (Bld)Automated basophil %.[facility] HospitalBilirubin.total [Mass/volume] in Serum or PlasmaOrdered By: Garcia Ly on 40-36-7991Xdmueimfk [Mass/Vol]Bilirubin.total [Mass/volume] in Serum or Plasma0.3-1.0[facility] HospitalCalcium [Mass/volume] in Serum or PlasmaOrdered By: Garcia Sanchez on 30-76-4641Qitjzrw [Mass/Vol]Calcium [Mass/volume] in Serum or Plasma8.6-10.3FPremier HealthCarbon dioxide, total [Moles/volume] in Serum or PlasmaOrdered By: Garcia Sanchez on 38-99-7978LF1 [Moles/Vol]Carbon dioxide, total [Moles/volume] in Serum or Plasma High21.0-31.0[facility] HospitalChloride [Moles/volume] in Serum or PlasmaOrdered By: Garcia Sanchez on 44-85-3353Ylxxieka [Moles/Vol]Chloride [Moles/volume] in Serum or Zkaklk02-066RmhuemkoqSalem City HospitalComplete Blood Count Auto Diffon 57-20-1581Iwvnjugcj (Bld) [#/Vol]0.0 10*3/uLNormal 0.0-0.2The [facility] Physician GroupComment on above:Result Comment: PERFORMED BY:[address] [place], [place] [phone] MEDICAL DIRECTORTAVIA SCHMIDT M.D.Performed By: #### CBC, CMP, PT ####[address]#### AFPTM ####[facility] ,Basophils/100 WBC (Bld)0.2 %Normal .The [facility] Physician GroupComment on above:Performed By: #### CBC, CMP, PT ####[place] [address] [place]#### AFPTM ####[facility] ,Eosinophils (Bld) [#/Vol]0.4 10*3/uLNormal 0.0-0.45The [facility] Physician GroupComment on above:Performed By: #### CBC, CMP, PT ####[address]#### AFPTM ####[facility] ,Eosinophils/100 WBC (Bld)14.4 %Normal. The [facility] Physician GroupComment on above:Performed By: #### CBC, CMP, PT ####[address]#### AFPTM ####[facility] ,Erythrocyte distribution width (RBC) [Ratio]18.1 %High11.9-15.3The [facility] Physician GroupComment on above:Performed By: #### CBC, CMP, PT ####[place] [address] [place]#### AFPTM ####[facility] ,Hematocrit (Bld) [Volume fraction] 30.5 %Low34.0-46.4The [facility] Physician GroupComment on above:Performed By: #### CBC, CMP, PT ####[place] [address] [place]#### AFPTM ####[facility] ,Hemoglobin (Bld) [Mass/Vol]9.9 g/dLLow11.8-15.4The [facility] Physician GroupComment on above:Performed By: #### CBC, CMP, PT ####[address]#### AFPTM ####[facility] ,Lymphocytes (Bld) [#/Vol]0.5 10*3/uLLow1.00-4.8The [facility] Physician GroupComment on above:Performed By: #### CBC, CMP, PT ####[address]#### AFPTM ####[facility] ,Lymphocytes/100 WBC (Bld)19.2 % Normal.The [facility] Physician GroupComment on above:Performed By: #### CBC, CMP, PT ####[address]#### AFPTM ####[facility] ,MCH (RBC) [Entitic mass]26.5 pgNormal 24.7-34.3The [facility] Physician GroupComment on above:Performed By: #### CBC, CMP, PT ####[address]#### AFPTM ####[facility] ,MCV (RBC) [Entitic vol]82.2 fLNormal 80-100The [facility] Physician GroupComment on above:Performed By: #### CBC, CMP, PT ####[place] [address] [place]#### AFPTM ####[facility] ,Mean Corpuscular HGB Conc32.3 g/dLNormal 32.0-35.0The [facility] Physician GroupComment on above:Performed By: #### CBC, CMP, PT ####[place] [address] [place]#### AFPTM ####[facility] ,Monocytes (Bld) [#/Vol]0.5 10*3/uLNormal 0.0-0.8The [facility] Physician GroupComment on above:Performed By: #### CBC, CMP, PT ####[place] [address] [place]#### AFPTM ####[facility] ,Monocytes/100 WBC (Bld)18.5 %Normal.The [facility] Physician GroupComment on above:Performed By: #### CBC, CMP, PT ####[address]#### AFPTM ####[facility] ,Neutrophils (Bld) [#/Vol]1.3 10*3/uLLow1.8-7.7 The [facility] Physician GroupComment on above:Performed By: #### CBC, CMP, PT ####[address]#### AFPTM ####[facility] ,Neutrophils/100 WBC (Bld)47.7 %Normal.The [facility] Physician GroupComment on above:Performed By: #### CBC, CMP, PT ####[place] [address] [place]#### AFPTM ####[facility] ,NRBC%0.2 /100{WBC}Normal0-0.5The [facility] Physician GroupComment on above:Performed By: #### CBC, CMP, PT ####[place] [address] [place]#### AFPTM ####[facility] ,Platelet mean volume (Bld) [Entitic vol]8.2 fLNormal 6.3-10.7The [facility] Physician GroupComment on above:Performed By: #### CBC, CMP, PT ####[place] [address] [place]#### AFPTM ####[facility] ,Platelets (Bld) [#/Vol]56 10*3/uLLow 150-450The [facility] Physician GroupComment on above:Performed By: #### CBC, CMP, PT ####[place] [address] [place]#### AFPTM ####[facility] ,RBC (Bld) [#/Vol]3.72 10*6/uLNormal 3.60-5.00The [facility] Physician GroupComment on above:Performed By: #### CBC, CMP, PT ####[address]#### AFPTM ####[facility] ,WBC (Bld) [#/Vol]2.7 10*3/uLLow3.8-11.6 The [facility] Physician GroupComment on above:Performed By: #### CBC, CMP, PT ####[place] [address] [place]#### AFPTM ####[facility] ,Comprehensive Metabolic Panelon 09-15-2024 Albumin [Mass/Vol]3.8 g/dLNormal3.5-5.7The [facility] Physician GroupComment on above:Performed By: #### CBC, CMP, PT ####[place] [address] [place]#### AFPTM ####[facility] , Albumin/Globulin [Mass ratio]2.4 {ratio}NormalThe [facility] Comment on above:Performed By: #### CBC, CMP, PT ####[place] [address] [place]#### AFPTM ####[facility] , ALP [Catalytic activity/Vol]99 U/IMuzyqm83-976Dca [facility] Comment on above:Result Comment: PERFORMED BY:[address]PATRICIA ROSADOHANCOCKS BRIDGE, [place] [phone] MEDICAL DIRECTORTAVIA SCHMIDT M.D.Performed By: #### CBC, CMP, PT ####[address]#### AFPTM ####[facility] ,ALT [Catalytic activity/Vol]15 U/LNormal7-52The [facility] Physician GroupComment on above:Performed By: #### CBC, CMP, PT ####[address]#### AFPTM ####[facility] ,Anion gap [Moles/Vol]10.0 mmol/LNormal6.0-15.0 The [facility] Physician GroupComment on above:Performed By: #### CBC, CMP, PT ####[address]#### AFPTM ####[facility] ,AST [Catalytic activity/Vol]33 U/MMacaki23-78Xqb [facility] Physician GroupComment on above:Performed By: #### CBC, CMP, PT ####[address]#### AFPTM ####[facility] ,Bilirubin [Mass/Vol]0.9 mg/dLNormal0.3-1.0The [facility] Physician GroupComment on above:Performed By: #### CBC, CMP, PT ####[place] [address] [place]#### AFPTM ####[facility] ,Calcium [Mass/Vol]8.8 mg/dLNormal8.6-10.3The [facility] Physician GroupComment on above:Performed By: #### CBC, CMP, PT ####[address] [place] [address] [place]#### AFPTM ####[facility] ,Chloride [Moles/Vol]104 mmol/SYfocja86-777Ggi [facility] Physician GroupComment on above:Performed By: #### CBC, CMP, PT ####[address]#### AFPTM ####[facility] ,CO2 [Moles/Vol]31.3 mmol/LHigh21.0-31.0The [facility] Physician GroupComment on above:Performed By: #### CBC, CMP, PT ####[address]#### AFPTM ####[facility] ,Creatinine [Mass/Vol]1.00 mg/dLNormal0.60-1.20 The [facility] Physician GroupComment on above:Performed By: #### CBC, CMP, PT ####[address]#### AFPTM ####[facility] ,GFR/1.73 sq M.predicted MDRD (S/P/Bld) [Vol rate/Area]mL/min/{1.73_m2}NormalThe [facility] Physician GroupComment on above: Performed By: #### CBC, CMP, PT ####[place] [address] [place]#### AFPTM ####[facility] ,Globulin (S) [Mass/Vol]1.6 g/dLNormalThe [facility] Physician GroupComment on above:Performed By: #### CBC, CMP, PT ####[place] [address] [place]#### AFPTM ####[facility] ,Glucose [Mass/Vol]71 mg/rMGttoxc82-129Ypv [facility] Physician GroupComment on above: Result Comment: Random Glucose Reference Range is dependent on time and content of last meal. Glucose of more than 200 mg/dL in a nonstressed, ambulatory subject supports the diagnosis of Diabetes Mellitus. ADA recommended reference rangePerformed By: #### CBC, CMP, PT ####[place] [address] [place]#### AFPTM ####[facility] ,Potassium [Moles/Vol]4.3 mmol/LNormal3.5-5.1The [facility] Physician GroupComment on above:Performed By: #### CBC, CMP, PT ####[place] [address] [place]#### AFPTM ####[facility] ,Protein [Mass/Vol]5.4 g/dLLow6.4-8.9The [facility] Physician GroupComment on above: Performed By: #### CBC, CMP, PT ####[place] [address] [place]#### AFPTM ####[facility] ,Sodium [Moles/Vol]141 mmol/CNgrnfb143-162Jpb [facility] Physician GroupComment on above: Performed By: #### CBC, CMP, PT ####[place] [address] [place]#### AFPTM ####[facility] ,Urea nitrogen [Mass/Vol]16 mg/dLNormal7-25The [facility] Physician GroupComment on above: Performed By: #### CBC, CMP, PT ####[place] [address] [place]#### AFPTM ####[facility] ,Creatinine [Mass/volume] in Serum or PlasmaOrdered By: Garcia Ly on 17-03-5399Ukakkgmopl [Mass/Vol]Creatinine [Mass/volume] in Serum or Plasma0.60-1.20[facility] HospitalEosinophils Auto (Bld) [#/Vol]Ordered By: Garcia Ly on 85-39-5579Rylzkpxuuae (Bld) [#/Vol]Automated eosinophil count0.0-0.45[facility] HospitalEosinophils/100 WBC Auto (Bld)Ordered By: Garcia Ly on 96-70-7992Sxpxrtdbyuv/100 WBC (Bld)Automated eosinophil %.[facility] HospitalErythrocyte distribution width Auto (RBC) [Ratio]Ordered By: Garcia Ly on 88-81-4724Kmrysdpjclh distribution width (RBC) [Ratio] Erythrocyte distribution width [Ratio] by Automated chukmDzwu80.9-15.3FPremier HealthGlobulin Calc (S) [Mass/Vol]Ordered By: Garcia Sanchez on 93-87-5192Ctnocfsi (S) [Mass/Vol]Serum globulin measurement by calculation (mass/volume)[facility] HospitalGlucose [Mass/volume] in Serum or PlasmaOrdered By: Garcia Sanchez on 28-23-7481Thkraki [Mass/Vol]Glucose [Mass/volume] in Serum or Jqiyvh39-269DxiisklfdSalem City Hospital Hematocrit Auto (Bld) [Volume fraction]Ordered By: Garcia Ly on 09-15-2024 Hematocrit (Bld) [Volume fraction]Hematocrit [Volume Fraction] of Blood by Automated tejwcEdj53.0-46.4FPremier HealthHemoglobin [Mass/volume] in BloodOrdered By: Garcia Ly on 47-50-7891Inzmcfelee (Bld) [Mass/Vol]Hemoglobin [Mass/volume] in UbayzPcd96.8-15.4FPremier HealthINR in Platelet poor plasma by Coagulation assayOrdered By: Garcia Ly on 32-15-7512GTD Coag (PPP) [Relative time]INR in Platelet poor plasma by Coagulation assaySalem City HospitalLeukocytes [#/volume] corrected for nucleated erythrocytes in Blood by Automated coun Ordered By: Garcia Ly on 39-96-0846BPV corrected for nucl RBC Auto (Bld) [#/Vol]Leukocytes [#/volume] corrected for nucleated erythrocytes in Blood by Automated counLow3.8-11.6FPremier HealthLymphocytes Auto (Bld) [#/Vol]Ordered By: Garcia Ly on 77-27-7882Ntkbxkxwpko (Bld) [#/Vol] Lymphocytes [#/volume] in Blood by Automated countLow1.00-4.8[facility] HospitalLymphocytes/100 WBC Auto (Bld)Ordered By: Garcia Ly on 98-42-0350Htuzlmroqtd/100 WBC (Bld)Lymphocytes/100 leukocytes in Blood by Automated count.[facility] HospitalMCH Auto (RBC) [Entitic mass] Ordered By: Garcia Ly on 92-35-0681IXR (RBC) [Entitic mass]MCH [Entitic mass] by Automated count24.7-34.3FPremier HealthMCHC Auto (RBC) [Mass/Vol]Ordered By: Garcia Ly on 86-66-8448IOVH (RBC) [Mass/Vol]MCHC [Mass/volume] by Automated count32.0-35.0[facility] HospitalMCV Auto (RBC) [Entitic vol]Ordered By: Garcia Ly on 43-29-2678HNC (RBC) [Entitic vol]MCV [Entitic volume] by Automated urles27-285ActjgpqzrSalem City HospitalMonocytes Auto (Bld) [#/Vol]Ordered By: Garcia Ly on 09-15-2024 Monocytes (Bld) [#/Vol]Automated blood monocyte count0.0-0.8[facility] HospitalMonocytes/100 WBC Auto (Bld)Ordered By: Garcia Ly on 09-15-2024 Monocytes/100 WBC (Bld)Automated monocyte %.[facility] Neutrophils Auto (Bld) [#/Vol]Ordered By: Garcia Ly on 44-41-8397Gdhyaqsgpgx (Bld) [#/Vol]Neutrophils [#/volume] in Blood by Automated countLow1.8-7.7 [facility] HospitalNeutrophils/100 WBC Auto (Bld)Ordered By: Garcia Ly on 57-24-9668Lmzkfhrpzxg/100 WBC (Bld)Automated neutrophil %. [facility] HospitalNo Panel InformationOrdered By: Garcia Ly on 09-15-2024> 60.0 mL/MinSalem City HospitalN/[facility] Medical CenterNucleated erythrocytes [Presence] in Blood by Automated count Ordered By: Garcia Sanchez on 04-60-5757Wrynondws RBC Auto Ql (Bld)Nucleated erythrocytes [Presence] in Blood by Automated count0-0.5FPremier HealthPlatelet mean volume Auto (Bld) [Entitic vol]Ordered By: Garcia Sanchez on 48-06-0212Jcaxzinc mean volume (Bld) [Entitic vol]Platelet mean volume [Entitic volume] in Blood by Automated count6.3-10.7FPremier HealthPlatelets Auto (Bld) [#/Vol]Ordered By: Garcia Sanchez on 09-15-2024 Platelets (Bld) [#/Vol]Platelets [#/volume] in Blood by Automated countLow 150-450Sal[facility] HospitalPotassium [Moles/volume] in Serum or PlasmaOrdered By: Garcia Sanchez on 70-17-5963Anedmjwzz [Moles/Vol]Potassium [Moles/volume] in Serum or Plasma3.5-5.1FPremier HealthProtein [Mass/volume] in Serum or PlasmaOrdered By: Garcia Sanchez on 44-75-3197Taxgrqt [Mass/Vol]Protein [Mass/volume] in Serum or PlasmaLow6.4-8.9[facility] HospitalProthrombin Time INRon 64-45-4212KEQ Coag (PPP) [Relative time]1.3 {INR}NormalThe [facility] Physician GroupComment on above:Result Comment: INR Therapeutic Range A) Pre- and Peroperative OAT started two weeks before surgery. NOT HIP SURGERY: 1.5 - 2.5 HIP SURGERY: 2 - 3 B) Primary and secondary prevention of venous THROMBOSIS: 2 - 3 C) Active venous thrombosis, pulmonary embolism and prevention of recurrent venous thrombosis: 2 - 3 D) Prevention of arterial thromboembolism including patients with mechanical heart valves: 3 - 4.5PERFORMED BY:[place] [address] [place] [phone] MEDICAL DIRECTORTAVIA SCHMIDT M.D. Performed By: #### CBC, CMP, PT ####[place] [address] [place] [address] [facility]#### AFPTM ####[facility] ,PT Coag (PPP) [Time]14.7 sHigh9.0-12.9The Adventhealth Physician GroupComment on above:Result Comment: A hematocrit value greater than 55% may lead to inaccurate results in coagulation testing. Patients having hematocrit values >55% require a special collection tube for coagulation studies. Please contact the laboratory at [phone] for redraw instructions.Performed By: #### CBC, CMP, PT ####[facility] [id number] [place] [address] [facility]#### AFPTM ####[facility] ,Prothrombin time (PT)Ordered By: Garcia Sanchez on 55-75-7785SO Coag (PPP) [Time]Prothrombin time (PT)High9.0-12.9[facility] HospitalRBC Auto (Bld) [#/Vol]Ordered By: Garcia Sanchez on 26-09-3124IAR (Bld) [#/Vol]Erythrocytes [#/volume] in Blood by Automated count 3.60-5.00[facility] Health Instituteerum or plasma albumin/globulin mass ratioOrdered By: Garcia Sanchez on 53-88-1968Fupyoya/Globulin [Mass ratio]Serum or plasma albumin/globulin mass ratioRiverview Health Instituteerum or plasma inedu-6-cbluwnszvuc tumor marker measurement (mass/volume)Ordered By: Garcia Sanchez on 63-67-5245STC.tumor marker [Mass/Vol]Serum or plasma txiay-9-fgmdziedskr tumor marker measurement (mass/volume)0.0-9.2FSouthview Medical Centererum or plasma anion gap determinationOrdered By: Garcia Sanchez on 25-70-4322Vraky gap [Moles/Vol]Serum or plasma anion gap determination6.0-15.0[facility] Health Instituteodium [Moles/volume] in Serum or PlasmaOrdered By: Garcia Sanchez on 87-64-8073Uxxcwn [Moles/Vol]Sodium [Moles/volume] in Serum or Sbadwk547-914OeoifedzaSalem City HospitalUrea nitrogen [Mass/volume] in Serum or PlasmaOrdered By: Garcia Sanchez on 09-15-2024 Urea nitrogen [Mass/Vol]Urea nitrogen [Mass/volume] in Serum or Plasma7-25 [facility] HospitalWBC Auto (Bld) [#/Vol]Ordered By: Garcia Sanchez on 93-66-6376HVB (Bld) [#/Vol]Leukocytes [#/volume] in Blood by Automated count Low3.8-11.6FPremier HealthImmunoglobulin light chains.free panel (S)Ordered By: Ferny Fletcher on 10-86-5861Gqcxaioczmlgln light chains.kappa [Mass/Vol]mg/dLLow0.33 - 1.94 mg/dLUnCentervilleImmunoglobulin light chains.kappa/Immunoglobulin light chains.lambda (S) [Mass ratio][facility] on above:One or more analytes used in this calculation is outside of the analytical measurement range. Calculation cannot be performed. Immunoglobulin light chains.lambda [Mass/Vol]mg/dLLow0.57 - 2.63 mg/dLUnCentervilleInterpretation and review of laboratory resultsAbnormal [facility] PrebleUndetected antigen excess is a rare event but cannot be excluded. If these free light chain results do not agree with other clinical or laboratory findings, or if the sample is from a patient that has previously demonstrated antigen excess, the result must be checked by retesting at a higher sample dilution. Results should always be interpreted in conjunction with other laboratory tests and clinical evidence; any anomalies should be discussed with the testing laboratory.[facility] HospitalCB W Auto Differential panel (Bld)on 54-51-8284Jirebqugf (Bld) [#/Vol]0 10*3/[facility] HospitalBasophils/100 WBC (Bld)0 %0.0 - 2.0 %[facility] PrebleEosinophils (Bld) [#/Vol]0.34 10*3/[facility] HospitalEosinophils/100 WBC (Bld)13.4 %0.0 - 6.0 %[facility] PrebleErythrocyte distribution width (RBC) [Ratio] 17.2 %High11.5 - 14.5 %[facility] PrebleHematocrit (Bld) [Volume fraction]29.5 %Low36.0 - 46.0 %[facility] PrebleHemoglobin (Bld) [Mass/Vol]9.3 g/dLLow12.0 - 16.0 g/dLUnCenterville Immature granulocytes (Bld) [#/Vol]0.01 10*3/uLKettering Health Preble Immature granulocytes/100 WBC (Bld)0.4 %0.0 - 0.9 %[facility] on above:Immature Granulocyte Count (IG) includes promyelocytes, myelocytes and metamyelocytes but does not include bands. Percent differential counts (%) should be interpreted in the context of the absolute c ell counts (cells/UL).Interpretation and review of laboratory resultsAbnormal [facility] PrebleLymphocytes (Bld) [#/Vol]0.62 10*3/uLLow [facility] PrebleLymphocytes/100 WBC (Bld)24.5 %13.0 - 44.0 % [facility] CenterH (RBC) [Entitic mass]27.1 pg26.0 - 34.0 pg [facility] CenterHC (RBC) [Mass/Vol]31.5 g/dLLow32.0 - 36.0 g/dLUnCentervilleMCV (RBC) [Entitic vol]86 fL80 - 100 fL [facility] PrebleMonocytes (Bld) [#/Vol]0.47 10*3/[facility] HospitalMonocytes/100 WBC (Bld)18.6 %2.0 - 10.0 %[facility] PrebleNeutrophils (Bld) [#/Vol]1.09 10*3/uLWestern Reserve HospitalCommclaren central michigan on above:Percent differential counts (%) should be interpreted in the context of the absolute cell counts (cells/uL). Neutrophils/100 WBC (Bld)43.1 %40.0 - 80.0 %[facility] Nucleated RBC/100 WBC (Bld) [Ratio]0 %[facility] PreblePlatelets (Bld) [#/Vol]57 10*3/uLWestern Reserve HospitalRBC (Bld) [#/Vol] 3.43 10*6/[facility] HospitalWBC (Bld) [#/Vol]2.5 10*3/[facility]eter[facility] Health AdministrationUnCentervilleBasophils (Bld) [#/Vol]0.00 x10*3/uLNormal0.00-0.10[facility] HospitalComment on above:Performed By: #### 89616-1 ####WIL HOLBROOK ([id number])[facility] (ALEX)[address] [place] [address] Basophils/100 WBC (Bld)0.0 %Normal0.0-2.0[facility] HospitalComment on above:Performed By: #### 62445-1 ####WIL HOLBROOK ([id number])[facility] (ALEX)[address] [place] [place], [place] [address]Rstrwzbwemp (Bld) [#/Vol]0.34 x10*3/uLNormal0.00-0.70[facility] HospitalComment on above:Performed By: #### 57375-3 ####WIL HOLBROOK ([id number])[facility] (ALEX)[address] [place] [address] Eosinophils/100 WBC (Bld)13.4 %Normal0.0-6.0UnWayne HealthCare Main CampusComment on above:Performed By: #### 38467-9 ####WIL HOLBROOK ([id number])[facility] (ALEX)[address] [place] [address] Erythrocyte distribution width (RBC) [Ratio]17.2 %High11.5-14.5[facility] HospitalComment on above:Performed By: #### 92649-2 ####WIL HOLBROOK ([id number])[facility] (ALEX)[address] [place] [place], [place] [address]Llsyzekwhb (Bld) [Volume fraction]29.5 %Low36.0-46.0 [facility] HospitalComment on above:Performed By: #### 98129-0 ####WIL HOLBROOK ([id number])[facility] (ALEX)[address] [place] [place], [place] [address]Gupwlovbby (Bld) [Mass/Vol]9.3 g/dLLow12.0-16.0 [facility] HospitalComment on above:Performed By: #### 17671-9 ####WIL HOLBROOK ([id number])[facility] (ALEX)[address] [place] [place], [place] [address]Xsatlujl granulocytes (Bld) [#/Vol]0.01 x10*3/uL Normal0.00-0.70UnWayne HealthCare Main CampusComment on above: Performed By: #### 44109-7 ####WIL HOLBOROK ([id number])[facility] (ALEX)[address] [place], [place] [address]Gtqmnuhk granulocytes/100 WBC (Bld) 0.4 %Normal0.0-0.9UnWayne HealthCare Main CampusComment on above: Result Comment: Immature Granulocyte Count (IG) includes promyelocytes, myelocytes and metamyelocytes but does not include bands. Percent differential counts (%) should be interpreted in the context of the absolute cell counts (cells/UL).Performed By: #### 06887-1 ####WIL HOLBROOK ([id number])[facility] (ALEX)[address] [place] [place], [place] [address]Ncdqecmqhoh (Bld) [#/Vol]0.62 x10*3/uLLow1.20-4.80[facility] Comment on above:Performed By: #### 20167-9 ####WIL HOLBROOK ([id number])[facility] (ALEX)[address] [place] [address] Lymphocytes/100 WBC (Bld)24.5 %Zutpzs55.0-44.0UnWayne HealthCare Main CampusComment on above:Performed By: #### 54063-9 ####WIL Villalobos'VANDANA ([id number])[facility] (ALEX)[address] [place] [address] MCH (RBC) [Entitic mass]27.1 jvUkdpdw89.0-34.0UnWayne HealthCare Main CampusComment on above:Performed By: #### 84370-9 ####WIL Villalobos'VANDANA ([id number])[facility] (ALEX)[address] [place] [address] MCHC (RBC) [Mass/Vol]31.5 g/dLLow32.0-36.0UnWayne HealthCare Main CampusComment on above:Performed By: #### 86896-6 ####WIL Villalobos'VANDANA ([id number])[facility] (ALEX)[address] [place] [address] MCV (RBC) [Entitic vol]86 kRGtzebb10-330AnauwwfipnWayne HealthCare Main CampusComment on above:Performed By: #### 15895-4 ####WIL Villalobos'VANDANA ([id number])[facility] (ALEX)[address] [place] [place], [place] [address]Iyniaaooz (Bld) [#/Vol]0.47 x10*3/uLNormal0.10-1.00UnWayne HealthCare Main CampusComment on above:Performed By: #### 50317-0 ####WIL Villalobos'VANDANA ([id number])[facility] (ALEX)[address] [place] [address] Monocytes/100 WBC (Bld)18.6 %Normal2.0-10.0[facility] HospitalComment on above:Performed By: #### 53842-9 ####WIL Villalobos'VANDANA ([id number])[facility] (ALEX)[address] [place] [address] Neutrophils (Bld) [#/Vol]1.09 x10*3/uLLow1.20-7.70UnWayne HealthCare Main CampusComment on above:Result Comment: Percent differential counts (%) should be interpreted in the context of the absolute cell counts (cells/uL). Performed By: #### 69047-2 ####WIL HOLBROOK ([id number])[facility] (ALEX)[address] [place] [place], [place] [address]Bbsbxgtzktr/100 WBC (Bld)43.1 % Ierrqx96.0-80.0[facility] HospitalComment on above: Performed By: #### 81025-4 ####WIL HOLBROOK ([id number])[facility] (ALEX)[address] [place] [place], [place] [address]Revkfmvbb RBC/100 WBC (Bld) [Ratio] 0.0 /100 WBCsNormal0.0-0.0[facility] HospitalComment on above:Performed By: #### 96137-2 ####WIL HOLBROOK ([id number])[facility] (ALEX)[address] [place] [place], [place] [address]Khlcltqsw (Bld) [#/Vol]57 x10*3/jJPbo566-682TceaxolqecWayne HealthCare Main CampusComment on above:Performed By: #### 49224-3 ####WIL Villalobos'VANDANA ([id number])[facility] (ALEX)[address] [place], [place] [address]KNJ (Bld) [#/Vol]3.43 x10*6/uLLow4.00-5.20[facility] HospitalComment on above:Performed By: #### 28664-7 ####WIL Villalobos'VANDANA ([id number])[facility] (ALEX)[address] [place] [place], [place] [address]TOL (Bld) [#/Vol]2.5 x10*3/uLLow4.4-11.3[facility] HospitalComment on above:Performed By: #### 22245-1 ####WIL HOLBROOK ([id number])[facility] (ALEX)[address] [place], [place] [address]Pjxqezfdiqjfh metabolic 2000 panelon 86-61-5492Ygpegcp BCP dye [Mass/Vol]3.8 g/dL3.4 - 5.0 g/dLUnCentervilleALP [Catalytic activity/Vol]108 U/L33 - 136 U/[facility] HospitalALT With P-5'-P [Catalytic activity/Vol]16 U/L7 - 45 U/L [facility] PrebleCommclaren central mich[place] on above:Patients treated with Sulfasalazine may generate falsely decreased results for ALT.Anion gap [Moles/Vol]9 mmol/LLow10 - 20 mmol/[facility] HospitalAST With P-5'-P [Catalytic activity/Vol]31 U/L9 - 39 U/[facility] Bilirubin [Mass/Vol]0.6 mg/dL0.0 - 1.2 mg/dLUnCenterville Calcium [Mass/Vol]8.5 mg/dLLow8.6 - 10.3 mg/dLUnCenterville Chloride [Moles/Vol]104 mmol/L98 - 107 mmol/[facility] CO2 [Moles/Vol]31 mmol/L21 - 32 mmol/[facility] Creatinine [Mass/Vol]0.96 mg/dL0.50 - 1.05 mg/dLKettering Health PrebleGFR/1.73 sq M.predicted among non-blacks MDRD (S/P/Bld) [Vol rate/Area] 65 mL/min/{1.73_m2}- PINniMount St. Mary HospitalCommclaren central [place] on above: Calculations of estimated GFR are performed using the 2020 CKD-EPI Study Refit equation without therace variable for the IDMS-Traceable creatinine methods. https://jasn.asnjournals.org/content//ASN.4163034913 Glucose [Mass/Vol]131 mg/bOMkrv50 - 99 mg/dLUniversity Hospitals of Asif Interpretation and review of laboratory resultsAbnormalUniMount St. Mary HospitalPotassium [Moles/Vol]4.2 mmol/L3.5 - 5.3 mmol/[facility] HospitalProtein [Mass/Vol]5.5 g/dLLow6.4 - 8.2 g/dLKettering Health PrebleSodium [Moles/Vol]140 mmol/L136 - 145 mmol/[facility] HospitalUrea nitrogen [Mass/Vol]19 mg/dL6 - 23 mg/dLUnCentervilleUnCentervilleAlbumin BCP dye [Mass/Vol]3.8 g/dL Normal3.4-5.0[facility] HospitalComment on above: Performed By: #### 05901-3 ####WIL HOLBROOK ([id number])[facility] (ALEX)[address] [place], [place] [address]KFV [Catalytic activity/Vol]108 U/L Treyyv13-763OkvtrsdyqsWayne HealthCare Main CampusComment on above: Performed By: #### 55160-0 ####WIL HOLBROOK ([id number])[facility] (ALEX)[address] [place], [place] [address]LRU With P-5'-P [Catalytic activity/Vol]16 U/LNormal7-45[facility] Comment on above:Result Comment: Patients treated with Sulfasalazine may generate falsely decreased results for ALT.Performed By: #### 66687-6 ####WIL HOLBROOK ([id number])[facility] (ALEX)[address] [place], [place] [address]Xybmz gap [Moles/Vol]9 mmol/MIxq39-68YxrjechthrGreene Memorial HospitalComment on above:Performed By: #### 65413-1 ####WIL HOLBROOK ([id number])[facility] (ALEX)[address] [place] [address] AST With P-5'-P [Catalytic activity/Vol]31 U/LNormal9-39[facility] HospitalComment on above:Performed By: #### 71096-2 ####WIL Villalobos'VANDANA ([id number])[facility] (ALEX)[address] [place], [place] [address]Fxtnviubi [Mass/Vol]0.6 mg/dLNormal0.0-1.2[facility] HospitalComment on above:Performed By: #### 81946-4 ####WIL Villalobos'VANDANA ([id number])[facility] (ALEX)[address] [place] [address] Calcium [Mass/Vol]8.5 mg/dLLow8.6-10.3[facility] HospitalComment on above:Performed By: #### 24558-8 ####WIL Villalobos'VANDANA ([id number])[facility] (ALEX)[address] [place], [place] [address]Ssgvneoq [Moles/Vol]104 mmol/MGfwidj91-499OkjsalkvicGreene Memorial Hospital Comment on above:Performed By: #### 77387-5 ####WIL Villalobos'VANDANA ([id number])[facility] (ALEX)[address] [place], [place] [address]SS7 [Moles/Vol]31 mmol/XRpkfpa05-24LrbfwrghmsGreene Memorial Hospital Comment on above:Performed By: #### 01832-0 ####WIL Villalobos'VANDANA ([id number])[facility] (ALEX)[address] [place], [place] [address]Drpfxcyyur [Mass/Vol]0.96 mg/dLNormal0.50-1.05[facility] Comment on above:Performed By: #### 23449-3 ####WIL Villalobos'VANDANA ([id number])[facility] (ALEX)[address] [place], [place] [address]Dkueqxwref filtration rate/1.73 sq M.fqcwpongh19 mL/min/1.73m*2Normal>60UnWayne HealthCare Main CampusComment on above:Result Comment: Calculations of estimated GFR are performed using the 2020 CKD-EPI Study Refit equation without the race variable for the IDMS-Traceable creatinine methods.https://jasn.asnjournals.org/content//ASN.1970840535 Performed By: #### 59344-1 ####WIL Villalobos'VANDANA ([id number])[facility] (ALEX)[address] [place], [place] [address]Cxcqdzf [Mass/Vol]131 mg/dLHigh 74-99UnWayne HealthCare Main CampusComment on above:Performed By: #### 09193-4 ####WIL Villalobos'VANDANA (480487)[facility] (ALEX)[address] [place], [place] [address]Sypjwhero [Moles/Vol]4.2 mmol/LNormal 3.5-5.3UnWayne HealthCare Main CampusComment on above:Performed By: #### 56180-7 ####WIL Villalobos'VANDANA ([id number])[facility] (ALEX)[address] [place], [place] [address]Fyzxpkx [Mass/Vol]5.5 g/dLLow6.4-8.2 [facility] HospitalComment on above:Performed By: #### 78423-6 ####WIL Villalobos'VANDANA ([id number])[facility] (ALEX)[address] [place], [place] [address]Osvget [Moles/Vol]140 mmol/WHfvqrq634-734PkcenmdqzpWayne HealthCare Main CampusComment on above:Performed By: #### 02627-8 ####WIL Villalobos'VANDANA ([id number])[facility] (ALEX)[address] [place], [place] [address]Rigy nitrogen [Mass/Vol]19 mg/dLNormal6-23[facility] HospitalComment on above:Performed By: #### 67018-9 ####WIL Villalobos'VANDANA ([id number])[facility] (ALEX)[address] [place], [place] [address]OVORYJVOBZRDAYR (IGG, IGA, IGM)on 31-23-9686KhP [Mass/Vol] mg/iMDyt08-634DljycohwaoWayne HealthCare Main CampusComment on above: Order Comment: MONOCLONAL PROTEINS MAY CAUSE FALSELY LOWRESULTS IN THIS ASSAY. SERUM PROTEINELECTROPHORESIS SHOULD BE DONE THEFIRST TEST TO EVALUATE MONOCLONAL GAMMOPATHY.Performed By: #### IGS ####ARNULFO Roger ([id number])[facility] ([facility])[address] [place], [place] [address]KcH [Mass/Vol]312 mg/tOYdw295-0423ZfqfhwutkzWayne HealthCare Main CampusComment on above: Order Comment: MONOCLONAL PROTEINS MAY CAUSE FALSELY LOWRESULTS IN THIS ASSAY. SERUM PROTEINELECTROPHORESIS SHOULD BE DONE THEFIRST TEST TO EVALUATE MONOCLONAL GAMMOPATHY.Performed By: #### IGS ####ARNULFO Roger ([id number])[facility] ([facility])[address] [place], [place] [address]MiU [Mass/Vol]mg/dL Enp05-727PltzarmvgiWayne HealthCare Main CampusComment on above:Order Comment: MONOCLONAL PROTEINS MAY CAUSE FALSELY LOWRESULTS IN THIS ASSAY. SERUM PROTEINELECTROPHORESIS SHOULD BE DONE THEFIRST TEST TO EVALUATE MONOCLONAL GAMMOPATHY.Performed By: #### IGS ####ARNULFO Roger ([id number])[facility] ([facility])[address] [place], [place] [address]Fticlithejaliw light chains.free panel (S)on 09-19-5211Lfdhshdkvazxzr light chains.kappa [Mass/Vol]<0.08Low 0.33-1.94[facility] HospitalComment on above:Order Comment: Undetected antigen excess is a rare event but cannot beexcluded. If these free lightchain results do not agreewith other clinical or laboratory findings, or if thesample is from a patient that has previously demonstratedantigen excess, the result must be checked by retestingat a higher sample dilution. Results should always beinterpreted in conjunction with other laboratory testsand clinical evidence; any anomalies should be discussedwith the testing laboratory.Performed By: #### 45315-7 ####ARNULFO Roger ([id number])[facility] ([facility])[address] [place] [address]Efzykjlpydixdz light chains.kappa/Immunoglobulin light chains.lambda (S) [Mass ratio]Normal [facility] HospitalComment on above:Order Comment: Undetected antigen excess is a rare event but cannot beexcluded. If these free lightchain results do not agreewith other clinical or laboratory findings, or if thesample is from a patient that has previously demonstratedantigen excess, the result must be checked by retestingat a higher sample dilution. Results should always beinterpreted in conjunction with other laboratory testsand clinical evidence; any anomalies should be discussedwith the testing laboratory.Result Comment: One or more analytes used in this calculationis outside of the analytical measurement range.Calculation cannot be performed.Performed By: #### 46201-8 ####ARNULFO Roger ([id number])[facility] ([facility])[address] [place] [address]Ergrndvujebtus light chains.lambda [Mass/Vol]<0.17Low 0.57-2.63[facility] HospitalComment on above:Order Comment: Undetected antigen excess is a rare event but cannot beexcluded. If these free lightchain results do not agreewith other clinical or laboratory findings, or if thesample is from a patient that has previously demonstratedantigen excess, the result must be checked by retestingat a higher sample dilution. Results should always beinterpreted in conjunction with other laboratory testsand clinical evidence; any anomalies should be discussedwith the testing laboratory.Performed By: #### 48534-0 ####ARNULFO Roger ([id number])[facility] ([facility])[address] [place] [address]Xydxaodybszzfbf (IgG, IgA, IgM)Ordered By: Ligia Hi on 33-78-6228FdD [Mass/Vol]mg/dLLow70 - 400 mg/dLUnCentervilleIgG [Mass/Vol]312 mg/fBWcy773 - 1600 mg/dLUnCentervilleIgM [Mass/Vol]mg/dLLow40 - 230 mg/dL [facility] PrebleInterpretation and review of laboratory results AbnormalUnCentervilleMONOCLONAL PROTEINS MAY CAUSE FALSELY LOW RESULTS IN THIS ASSAY. SERUM PROTEIN ELECTROPHORESIS SHOULD BE DONE THE FIRST TEST TO EVALUATE MONOCLONAL GAMMOPATHY.[facility] Medical CenterProteinon 36-26-3534Xdlmfcc [Mass/Vol]5.3 g/dL Low6.4-8.2[facility] HospitalComment on above: Performed By: #### 2885-2 ####ARNULFO Roger ([id number])[facility] ([facility])[address] [place], [place] [address]Dnknfge electrophoresis panelon 09-06-2024 Albumin [Mass/Vol]3.3 g/dLLow3.4-5.0UnWayne HealthCare Main CampusComment on above:Performed By: #### 95632-4 ####ARNULFO Roger ([id number])[facility] ([facility])[address] [place], [place] [address]SDEJJ 1 GLOBULIN0.3 g/dLNormal0.2-0.6UnWayne HealthCare Main CampusComment on above: Performed By: #### 45514-5 ####ARNULFO Roger ([id number])[facility] ([facility])[address] [place], [place] [address]LGDKM 2 GLOBULIN0.7 g/dLNormal0.4-1.1UnWayne HealthCare Main CampusComment on above:Performed By: #### 81274-8 ####ARNULFO Roger ([id number])[facility] ([facility])[address] [place], [place] [address]INWS GLOBULIN0.7 g/dLNormal0.5-1.2UnWayne HealthCare Main CampusComment on above:Performed By: #### 95162-3 ####ARNULFO Roger ([id number])[facility] ([facility])[address] [place], [place] [address]RBLQG GLOBULIN0.3 g/dLLow0.5-1.4UnWayne HealthCare Main CampusComment on above: Performed By: #### 76906-3 ####ARNULFO Roger ([id number])[facility] ([facility])[address] [place] [address]KOUZ REVIEW-SERUM PROTEIN ELECTROPHORESIS Reviewed and approved by CASS FREEDMAN on 09/07/24 at 7:30 PM.[facility]itan HospitalComment on above:Performed By: #### 15253-0 ####ARNULFO Roger ([id number])[facility] ([facility])[address] [place] [address]LYSMAKY ELECTROPHORESIS COMMENTSEE COMMENTNoCleveland Clinic Lutheran HospitalComment on above:Result Comment: Hypoalbuminemia. Decrease in polyclonal gamma globulins.Performed By: #### 59128-5 ####ARNULFO Roger ([id number])[facility] ([facility])[address] [place] [address]Lvtzw Mycobacterium tuberculosis stimulated gamma interferon detectionOrdered By: Fabiola Palumbo on 08-26-2024M. tuberculosis tuberculin stim IFN-g Ql (Bld)Blood Mycobacterium tuberculosis tuberculin stimulated gamma interferon detection. [facility] HospitalBlood mitogen stimulated gamma interferon measurement (units/volume)Ordered By: Fabiola Palumbo on 46-43-6139Xhsrhjj stimulated gamma interferon Qn (Bld)Blood mitogen stimulated gamma interferon measurement (units/volume).[facility] HospitalCholesterol [Mass/volume] in Serum or PlasmaOrdered By: Fabiola Warchol on 65-64-1661Xxwvircnttu [Mass/Vol]Cholesterol [Mass/volume] in Serum or NwaibsIyb221-905BramhupfcSalem City HospitalCholesterol in HDL [Mass/volume] in Serum or Plasma Ordered By: Fabiola Warchol on 14-14-1735Gqkvgyalepb in HDL [Mass/Vol]Serum or plasma high density lipoprotein (HDL) cholesterol [id number] City HospitalCholesterol in LDL Calc [Mass/Vol]Ordered By: Fabiola Warchol on 63-89-2993Hlhswwtsqeh in LDL [Mass/Vol]Cholesterol in LDL [Mass/volume] in Serum or Plasma by calculation0-100[facility] HospitalCholesterol in VLDL Calc [Mass/Vol]Ordered By: Fabiola Annechol on 68-43-0451Jrcvxpockfc in VLDL [Mass/Vol]Cholesterol in VLDL [Mass/volume] in Serum or Plasma by calculation [facility] HospitalCreatinine [Mass/volume] in UrineOrdered By: Fabiola Deepali on [id number] (U) [Mass/Vol]Creatinine [Mass/volume] in UrineSalem City HospitalFolateon 18-12-2051Alhqrg55.8 ng/mLNormal >5.9The Adventhealth Physician GroupComment on above:Result Comment: Folate reference range: >5.9 ng/ml The WHO technical consultation on folate and vitamin b12 deficiencies has determined that folate concentrations less than 4 ng/ml are considered deficient.Performed By: #### [id number], LIPID, B12, FOL ####[place] [address] [place] [id number] USAFolate [Mass/volume] in Serum or PlasmaOrdered By: Fabiola Deepali on 11-82-5311Jqmvxa [Mass/Vol]Folate [Mass/volume] in Serum or Plasma>5.9[facility] City HospitalLipid Panelon 30-47-6696Mhxrmomelys [Mass/Vol]130 mg/qKWan405-509Aat [facility] Physician GroupComment on above:Result Comment: Chol less than 200 mg/dl low risk Chol 201-239 mg/dl borderline risk Chol 240 mg/dland greater high riskPerformed By: #### [id number], LIPID, B12, FOL ####[place] [address] USACholesterol in HDL [Mass/Vol]69 mg/dL Oauxjf50-10Jxp [facility] Physician GroupComment on above:Result Comment: HDL CHOL ATP-III CLASSIFICATION Cardiovascular Risk HDL > or equal to 60 mg/dL LOW HDL < 40 mg/dL HIGHPerformed By: #### [id number], LIPID, B12, FOL ####[address] [address] [facility] Cholesterol.total/Cholesterol in HDL [Mass ratio]1.9 {ratio}Normal<5.0The [facility] Physician GroupComment on above:Performed By: #### [id number], LIPID, B12, FOL ####[place] [address] [place] [address] USALDL Cholesterol,Vpwpypleff95 mg/dLNormal0-100The [facility] Comment on above:Result Comment: LDL ATP III CLASSIFICATION LDL less than 100 mg/dL Optimal LDL 100-129 mg/dL Near or above optimal LDL 130-159 mg/dL Borderline high LDL 160-189 mg/dL High LDL greater than 189 mg/dL Very high Performed By: #### [id number], LIPID, B12, FOL ####[address] [address] USATriglyceride w/Azhxec02 mg/dLNormal 0-149The [facility] CenterComment on above:Result Comment: TRIG ATP III CLASSIFICATION TRIG less than 150 mg/dL Normal TRIG 150-199 mg/dL Borderline high TRIG 200-500 mg/dL High TRIG greater than 500 mg/dL Very high Standard traceable to the Center for Disease Conrtrol and Prevention (CDC) test method. Performed By: #### [id number], LIPID, B12, FOL ####[address] [address] USAVLDL JVNLOZUGSLT72 mg/dLNoAtrium Health Cabarrus Physician [facility] CenterComment on above:Performed By: #### [id number], LIPID, B12, FOL ####[address] [address] USAMicroAlb Creat Ratio,Uon 49-65-2217Tnxdbic DL <= 20 mg/L (U) [Mass/Vol]mg/dL Normal0.0-1.8The [facility] CenterComment on above:Performed By: #### URMACRERAT ####[address] [address] USACreatinine, Urine (Random)11.00 mg/dLNoAtrium Health Cabarrus Physician [facility] Comment on above:Result Comment: No reference range establishedPerformed By: #### URMACRERAT ####[address] [address]VRNZxeaclenabfy/Creatinine RatioNot performedNormal0.0-30.0The [facility]health Physician GroupComment on above:Result Comment: PERFORMED BY:[facility] [place], [place] [phone] MEDICAL DIRECTORWEI HARE M.D.Performed By: #### URMACRERAT ####[facility] [address] [place], [place] [address]WMGJhvvthwkrald [Mass/volume] in UrineOrdered By: Fabiola Palumbo on 41-78-3720Tmogzit DL <= 20 mg/L (U) [Mass/Vol] Microalbumin [Mass/volume] in Urine0.0-1.8[facility] Mycobacterium tuberculosis stimulated gamma interferon [Interpretation] in Blood QualOrdered By: Fabiola Palumbo on 08-26-2024M. tuberculosis stim IFN-g Ql (Bld) [Interp]Mycobacterium tuberculosis stimulated gamma interferon [Interpretation] in Blood QualNegativeSalem City HospitalQuantiFERON TB Goldon 35-10-4745VJQM CriteriaCommentNormal.The [facility] Physician GroupComment on above:Result Comment: QuantiFERON-TB Gold Plus is a qualitative indirect test for M tuberculosis infection (including disease) and is intended for use in conjunction with risk assessment, radiography, and other medical and diagnostic evaluations. The QuantiFERON-TB Gold Plus result is determined by subtracting the Nil value from either TB antigen (Ag) value. The Mitogen tube serves as a control for thetest.Performed By: #### QUANT TB ####[facility] ,Quant TB Ag Value0.03Normal.The [facility] Physician GroupComment on above:Performed By: #### QUANT TB ####[facility] ,Quant TB Gold PlusNegativeNormal NegativeThe [facility]health Physician GroupComment on above:Result Comment: No response to M tuberculosis antigens detected. Infection with M tuberculosis is unlikely, but high risk individuals should be considered for additional testing (ATS/IDSA/CDC Clinical Practice Guidelines, 2017). The reference range is an Antigen minus Nil result of <0.35 IU/mL. The specimen received for QuantiFERON testing was incubated by the ordering institution. Specific procedures outlined in our Directory of Services and in the package insert for the QuantiFERON Gold (In Tube) test must be followed to enable for proper stimulation of cells for the production of interferon gamma. Chemiluminescence immunoassay methodology Performed at: [facility] [employer] [id number] Aeronautical Design Engineer: Lang Knight PhD, Phone: [phone] BY:[place] [address] [address] [place], [place] [phone] MEDICAL DIRECTORWEI HARE M.D.Performed By: #### QUANT TB ####[facility] ,Quant TB2 Ag Value0.03Normal.The [facility] Physician GroupComment on above:Performed By: #### QUANT TB ####[facility] ,Quantiferon Nil Value0.02Normal.The [facility] Physician GroupComment on above:Performed By: #### QUANT TB ####[facility] ,Quantiferon TB Mitogen>10.00Normal.The [facility] Physician GroupComment on above:Performed By: #### QUANT TB ####[facility] ,Serum or plasma total cholesterol/high density lipoprotein (HDL) cholesterol mass ratOrdered By: Fabiola Palumbo on 08-26-2024 Cholesterol.total/Cholesterol in HDL [Mass ratio]Serum or plasma total cholesterol/high density lipoprotein (HDL) cholesterol mass rat<5.0[facility] City HospitalTriglyceride [Mass/volume] in Serum or PlasmaOrdered By: Fabiola Deepali on 43-20-3056Okayzyjodewt [Mass/Vol]Triglyceride [Mass/volume] in Serum or Plasma0-149[facility] City HospitalUrine microalbumin/creatinine mass ratioOrdered By: Fabiola Deepali on 08-26-2024 Albumin/Creatinine DL <= 20 mg/L (U) [Mass ratio]Urine microalbumin/creatinine mass ratioSalem City HospitalVitamin B12on 54-29-0221Ojwrlpyoe (Vitamin B12) [Mass/Vol]1064 pg/rXUags141-219Jlz [facility] Comment on above:Performed By: #### [id number], LIPID, B12, FOL ####[facility] [place] [address] USAVitamin B12 ser/plas Ordered By: Fabiola Palumbo on 50-06-5319Qbhoqviqo (Vitamin B12) [Mass/Vol]Vitamin B12 ser/ftnhIsci014-084TluhupmdbSalem City HospitalVitamin D 25 Hydroxy Totalon 45-77-8396Okmuuci D 25 Hydroxy Total52.9 ng/sPIccdbw87-657Nvy [facility] Physician GroupComment on above:Result Comment: VITAMIN D STATUS 25(OH)VITAMIN D RANGE (ng/mL) Deficient <20 Insufficient 20 to <30 Sufficient 30 to 100 Reference: David MF,Dex NC, Phan KRISHNA, et al. Evaluation,t reatment, and prevention of vitamin D deficiency; an Endocrine Society clinical practice guideline.JCEM. 2010; 96(7):1911-30.PERFORMED BY:[facility] [place], [place] [phone] MEDICAL DIRECTORWEI HARE M.D.Performed By: #### VNUV07MP, LIPID, B12, FOL ####[facility] [address] [place] [address] USAVitamin D+Metabolites [Mass/volume] in Serum or PlasmaOrdered By: Fabiola Palumbo on 76-24-9286Xlkyydb D+Metabolites [Mass/Vol]Vitamin D+Metabolites [Mass/volume] in Serum or Ioclma38-295DqhaljftoSalem City HospitalWhole blood measurement of Mycobacterium tuberculosis stimulated gamma interferon relOrdered By: Fabiola Palumbo on 08-26-2024M. tuberculosis stim IFN-g by CD4+ CD8+ T-cells corrected for background Qn (Bld)Whole blood measurement of Mycobacterium tuberculosis stimulated gamma interferon rel.Sal[facility] City HospitalCB W Auto Differential panel (Bld)on 20-62-4986Unphltjgx (Bld) [#/Vol]0.01 x10*3/uLNormal 0.00-0.10[facility] HospitalComment on above:Result Comment: Automated WBC differential has been confirmed by manual smear.Performed By: #### 94051-6 ####WIL HOLBROOK ([id number])[facility] (ALEX)[address] [place], [place] [address]Ufnuzehwj/100 WBC (Bld)0.4 %Normal 0.0-2.0[facility] HospitalComment on above:Performed By: #### 14550-3 ####WIL HOLBROOK ([id number])[facility] (ALEX)[address] [place], [place] [address]Gchrrgtgtmp (Bld) [#/Vol]0.33 x10*3/uL Normal0.00-0.70[facility] HospitalComment on above: Performed By: #### 56044-1 ####WIL HOLBROOK ([id number])[facility] (ALEX)[address] [place], [place] [address]Wadgqpoizcs/100 WBC (Bld)13.5 % Normal0.0-6.0[facility] HospitalComment on above: Performed By: #### 07912-8 ####WIL HOLBROOK ([id number])[facility] (ALEX)[address] [place], [place] [address]Szqkbhhczmh distribution width (RBC) [Ratio]17.3 %High11.5-14.5[facility] Comment on above:Performed By: #### 15674-7 ####WIL HOLBROOK ([id number])[facility] (ALEX)[address] [place], [place] [address]Anrtirpvxv (Bld) [Volume fraction]27.5 %Low36.0-46.0UnWayne HealthCare Main CampusComment on above:Performed By: #### 43040-1 ####WIL HOLBROOK ([id number])[facility] (ALEX)[address] [place], [place] [address]Gqhljyyroy (Bld) [Mass/Vol]8.5 g/dLLow12.0-16.0[facility] HospitalComment on above:Performed By: #### 65275-6 ####WIL HOLBROOK ([id number])[facility] (ALEX)[address] [place], [place] [address]Mnhwsybr granulocytes (Bld) [#/Vol]0.01 x10*3/uLNormal0.00-0.70UnWayne HealthCare Main CampusComment on above:Performed By: #### 24614-1 ####WIL HOLBROOK ([id number])[facility] (ALEX)[address] [place], [place] [address]Eiccxocs granulocytes/100 WBC (Bld)0.4 %Normal0.0-0.9UnWayne HealthCare Main CampusComment on above:Result Comment: Immature Granulocyte Count (IG) includes promyelocytes, myelocytes and metamyelocytes but does not include bands. Percent differential counts (%) should be interpreted in the context of the absolute cell counts (cells/UL).Performed By: #### 88693-8 ####WIL HOLBROOK ([id number])[facility] (ALEX)[address] [place], [place] [address]Gjwnjovobdu (Bld) [#/Vol]0.63 x10*3/uLLow1.20-4.80 [facility] HospitalComment on above:Performed By: #### 07072-3 ####WIL HOLBROOK ([id number])[facility] (ALEX)[address] [place], [place] [address]Ejchyaearnv/100 WBC (Bld)25.7 %Itvdct75.0-44.0 [facility] HospitalComment on above:Performed By: #### 32942-5 ####WIL HOLBROOK ([id number])[facility] (ALEX)[address] [place], [place] [address]MYZ (RBC) [Entitic mass]27.0 alCxezho12.0-34.0 [facility] HospitalComment on above:Performed By: #### 48159-6 ####WIL StewartVANDANA ([id number])[facility] (ALEX)[address] [place], [place] [address]OUHA (RBC) [Mass/Vol]30.9 g/dLLow32.0-36.0 [facility] HospitalComment on above:Performed By: #### 88672-6 ####WIL Villalobos'VANDANA ([id number])[facility] (ALEX)[address] [place], [place] [address]GGJ (RBC) [Entitic vol]87 lKAzshsv26-379AajytmbhfyGreene Memorial HospitalComment on above:Performed By: #### 88259-9 ####WIL Villalobos'VANDANA ([id number])[facility] (ALEX)[address] [place], [place] [address]Pjitrfjvh (Bld) [#/Vol]0.55 x10*3/uLNormal0.10-1.00 [facility] HospitalComment on above:Performed By: #### 39931-5 ####WIL Villalobos'VANDANA ([id number])[facility] (ALEX)[address] [place], [place] [address]Dsswejybd/100 WBC (Bld)22.4 %Normal2.0-10.0 [facility] HospitalComment on above:Performed By: #### 37872-6 ####WIL Villalobos'VANDANA ([id number])[facility] (ALEX)[address] [place], [place] [address]Asqmqgadrka (Bld) [#/Vol]0.92 x10*3/uLLow1.20-7.70 [facility] HospitalComment on above:Result Comment: Percent differential counts (%) should be interpreted in the context of the absolute cell counts (cells/uL).Performed By: #### 61734-8 ####WIL Villalobos'VANDANA (900282)[facility] (ALEX)[address] [place] [address] Neutrophils/100 WBC (Bld)37.6 %Vtrcsj42.0-80.0[facility] HospitalComment on above:Performed By: #### 83965-2 ####WIL HOLBROOK ([id number])[facility] (ALEX)[address] [place] [address] Nucleated RBC/100 WBC (Bld) [Ratio]0.0 /100 WBCsNormal0.0-0.0[facility] HospitalComment on above:Performed By: #### 12567-1 ####WIL HOLBROOK ([id number])[facility] (ALEX)[address] [place], [place] [address]Frwwefdrv (Bld) [#/Vol]72 x10*3/rBXnq014-652OwvgejsdzhWayne HealthCare Main CampusComment on above:Performed By: #### 11144-1 ####WIL HOLBROOK ([id number])[facility] (ALEX)[address] [place], [place] [address]FQM (Bld) [#/Vol]3.15 x10*6/uLLow4.00-5.20[facility] HospitalComment on above:Performed By: #### 79529-3 ####WIL HOLBROOK (260925)[facility] (ALEX)[address] [place], [place] [address]AVE (Bld) [#/Vol]2.5 x10*3/uLLow4.4-11.3[facility] HospitalComment on above:Performed By: #### 81417-1 ####WIL HOLBROOK (580011)[facility] (ALEX)[address] [place], [place] [address]Medwnlqjnzjwt metabolic 2000 panelon 22-80-0706Hvblhkw BCP dye [Mass/Vol]3.5 g/dLNormal3.4-5.0UnWayne HealthCare Main CampusComment on above:Performed By: #### 37383-4 ####WIL HOLBROOK ([id number])[facility] (ALEX)[address] [place], [place] [address]CAH [Catalytic activity/Vol]102 U/RDfnhsz90-147BticobshboWayne HealthCare Main CampusComment on above:Performed By: #### 99643-5 ####WIL HOLBROOK ([id number])[facility] (ALEX)[address] [place] [address] ALT With P-5'-P [Catalytic activity/Vol]18 U/LNormal7-45UnWayne HealthCare Main CampusComment on above:Result Comment: Patients treated with Sulfasalazine may generate falsely decreased results for ALT.Performed By: #### 09022-0 ####WIL HOLBROOK ([id number])[facility] (ALEX)[address] [place], [place] [address]Yqmil gap [Moles/Vol]11 mmol/LEpdzcy99-93ZqifozcgjgWayne HealthCare Main CampusComment on above:Performed By: #### 91013-7 ####WIL HOLBROOK ([id number])[facility] (ALEX)[address], [place] [address]ULI With P-5'-P [Catalytic activity/Vol]32 U/LNormal9-39 [facility] HospitalComment on above:Performed By: #### 57623-0 ####WIL HOLBROOK ([id number])[facility] (ALEX)[address] [place], [place] [address]Oyzyaothp [Mass/Vol]0.7 mg/dLNormal0.0-1.2 [facility] HospitalComment on above:Performed By: #### 50004-7 ####WIL HOLBROOK ([id number])[facility] (ALEX)[address] [place], [place] [address]Cmvfxbd [Mass/Vol]8.5 mg/dLLow8.6-10.3[facility] HospitalComment on above:Performed By: #### 10590-8 ####WIL O'VANDANA ([id number])[facility] (ALEX)[address] [place], [place] [address]Puotqjre [Moles/Vol]105 mmol/EBzniqo03-760WylicwfevuWayne HealthCare Main CampusComment on above:Performed By: #### 82580-2 ####WIL O'VANDANA ([id number])[facility] (ALEX)[address] [place], [place] [address]UC2 [Moles/Vol]28 mmol/ZQuwjrm98-42QwnnkeiulbGreene Memorial HospitalComment on above:Performed By: #### 62482-0 ####WIL O'VANDANA (680927)[facility] (ALEX)[address] [place], [place] [address]Dyirqccsqj [Mass/Vol]0.77 mg/dLNormal0.50-1.05UnWayne HealthCare Main CampusComment on above:Performed By: #### 30964-5 ####WIL O'VANDANA ([id number])[facility] (ALEX)[address] [place], [place] [address]Ivxaqcebtj filtration rate/1.73 sq M.pliqpnnxm45 mL/min/1.73m*2Normal>60 [facility] HospitalComment on above:Result Comment: Calculations of estimated GFR are performed using the 2020 CKD-EPI Study Refit equation without the race variable for the IDMS-Traceable creatinine methods.https://jasn.asnjournals.org/content/early//ASN.1064860610 Performed By: #### 87498-6 ####WIL Villalobos'VANDANA ([id number])[facility] (ALEX)[address] [place], [place] [address]Lnsbeci [Mass/Vol]107 mg/dLHigh 74-99UnWayne HealthCare Main CampusComment on above:Performed By: #### 79664-9 ####WIL Villalobos'VANDANA ([id number])[facility] (ALEX)[address] [place], [place] [address]Hwgzfcjym [Moles/Vol]4.5 mmol/LNormal 3.5-5.3[facility] HospitalComment on above:Performed By: #### 46779-0 ####WIL Villalobos'VANDANA ([id number])[facility] (ALEX)[address] [place], [place] [address]Qvrookc [Mass/Vol]5.4 g/dLLow6.4-8.2 [facility] HospitalComment on above:Performed By: #### 73365-2 ####WIL Villalobos'VANDANA (710961)[facility] (ALEX)[address] [place], [place] [address]Toezrh [Moles/Vol]139 mmol/DTxymww439-438UjhugacgbgGreene Memorial HospitalComment on above:Performed By: #### 75864-8 ####WIL Villalobos'VANDANA ([id number])[facility] (ALEX)[address] [place], [place] [address]Mzxn nitrogen [Mass/Vol]23 mg/dLNormal6-23[facility] HospitalComment on above:Performed By: #### 85305-4 ####WIL Villalobos'VANDANA ([id number])[facility] (ALEX)[address] [place], [place] [address]OFQ shape Nom (Bld)on 01-02-1025Muzmisjbqpo Ql (Bld)Mild NormalUnWayne HealthCare Main CampusComment on above:Performed By: #### 50194-5 ####WIL Villalobos'VANDANA ([id number])[facility] (ALEX)[address], [place] [address]Lpynblijhu LM Ql (Bld)FewNormal [facility] HospitalComment on above:Performed By: #### 86657-8 ####WIL Villalobos'VANDANA ([id number])[facility] (ALEX)[address] [place], [place] [address]WDC morphology finding Nom (Bld)See BelowNoCrystal Clinic Orthopedic CenterComment on above:Performed By: #### 24199-3 ####WIL Villalobos'VANDANA ([id number])[facility] (ALEX)[address] [place], [place] [address]Ibqyykhxfmyf LM Ql (Bld)[facility] for RehabilitationComment on above:Performed By: #### 49748-3 ####WIL Villalobos'VANDANA ([id number])[facility] (ALEX)[address], [place] [address]BBTFM-98 Detected/Not DetectedOrdered By: Letty Newsome on 74-23-4952GUEF-CoV-2 (COVID-19) RNA JOHANN+non-probe Ql (Nph)Not detectedNot DetecteFPremier HealthCOVID-19 PCR ([facility])on 18-43-9152EHXRPTC NOT DETECTEDNot detectedNot DetecteNOMS HealthcareComment on above:This is a duplicate RP2.1 COVID (PCR) result to be used for statistical tracking purpose only. [facility] HealthcareRespiratory pathogens DNA and RNA panel - Nasopharynx by JOHANN with non-probe detectionOrdered By: Letty Newsome on 91-09-6494Aictkohsfed pathogens DNA and RNA panel JOHANN+non-probe (Nph)Respiratory pathogens DNA and RNA panel - Nasopharynx by JOHANN with non-probe detectionSalem City Hospital Respiratory pathogens DNA and RNA panel JOHANN+non-probe (Nph)[facility] HospitalImmunoglobulin light chains.free panel (S)Ordered By: Ferny Fletcher on 95-51-2721Fxogtzrmimwxsw light chains.kappa [Mass/Vol]mg/dLLow0.33 - 1.94 mg/dLUnCentervilleImmunoglobulin light chains.kappa/Immunoglobulin light chains.lambda (S) [Mass ratio][facility] Health PrebleComment on above:One or more analytes used in this calculation is outside of the analytical measurement range. Calculation cannot be performed. Immunoglobulin light chains.lambda [Mass/Vol]mg/dLLow0.57 - 2.63 mg/dLKettering Health PrebleInterpretation and review of laboratory resultsAbFirelands Regional Medical Center South CampusUndetected antigen excess is a rare event but cannot be excluded. If these free light chain results do not agree with other clinical or laboratory findings, or if the sample is from a patient that has previously demonstrated antigen excess, the result must be checked by retesting at a higher sample dilution. Results should always be interpreted in conjunction with other laboratory tests and clinical evidence; any anomalies should be discussed with the testing laboratory.[facility] W Auto Differential panel (Bld)on 47-75-1399Vwyzwnlqo (Bld) [#/Vol]0.01 10*3/[facility] HospitalBasophils/100 WBC (Bld)0.3 %0.0 - 2.0 %[facility] PrebleEosinophils (Bld) [#/Vol] 0.14 10*3/[facility] HospitalEosinophils/100 WBC (Bld)4.8 %0.0 - 6.0 %[facility] PrebleErythrocyte distribution width (RBC) [Ratio]17.5 %High11.5 - 14.5 %[facility] PrebleHematocrit (Bld) [Volume fraction]28.6 %Low36.0 - 46.0 %[facility] Hemoglobin (Bld) [Mass/Vol]8.9 g/dLLow12.0 - 16.0 g/dLUnCentervilleImmaadams county regional medical center granulocytes (Bld) [#/Vol]0.01 10*3/[facility] HospitalImhannibal regional hospital granulocytes/100 WBC (Bld)0.3 %0.0 - 0.9 %[facility] PrebleComment on above:Immature Granulocyte Count (IG) includes promyelocytes, myelocytes and metamyelocytes but does not include bands. Percent differential counts (%) should be interpreted in the context of the absolute c ell counts (cells/UL).Interpretation and review of laboratory resultsAbFirelands Regional Medical Center South CampusLymphocytes (Bld) [#/Vol]0.75 10*3/uLLow [facility] PrebleLymphocytes/100 WBC (Bld)25.9 %13.0 - 44.0 % [facility] CenterH (RBC) [Entitic mass]27.1 pg26.0 - 34.0 pg [facility] CenterHC (RBC) [Mass/Vol]31.1 g/dLLow32.0 - 36.0 g/dLUnCentervilleMCV (RBC) [Entitic vol]87 fL80 - 100 fL [facility] PrebleMonocytes (Bld) [#/Vol]0.59 10*3/[facility] HospitalMonocytes/100 WBC (Bld)20.3 %2.0 - 10.0 %[facility] PrebleNeutrophils (Bld) [#/Vol]1.40 10*3/[facility] HospitalComment on above:Percent differential counts (%) should be interpreted in the context of the absolute cell counts (cells/uL). Neutrophils/100 WBC (Bld)48.4 %40.0 - 80.0 %[facility] Nucleated RBC/100 WBC (Bld) [Ratio]0.0 %[facility] Platelets (Bld) [#/Vol]78 10*3/[facility] HospitalRBC (Bld) [#/Vol]3.29 10*6/[facility] HospitalWBC (Bld) [#/Vol]2.9 10*3/[facility] North HospitalUnCenterville Basophils (Bld) [#/Vol]0.01 x10*3/uLNormal0.00-0.10[facility] HospitalComment on above:Performed By: #### 58890-2 ####WIL HOLBROOK ([id number])[facility] (ALEX)[address] [place], [place] [address]Kihapzgqr/100 WBC (Bld)0.3 %Normal0.0-2.0UnWayne HealthCare Main CampusComment on above:Performed By: #### 93162-4 ####WIL HOLBROOK ([id number])[facility] (ALEX)[address] [place] [address] Eosinophils (Bld) [#/Vol]0.14 x10*3/uLNormal0.00-0.70[facility] HospitalComment on above:Performed By: #### 53290-4 ####WIL HOLBROOK ([id number])[facility] (ALEX)[address] [place], [place] [address]Wztgoaxdfgr/100 WBC (Bld)4.8 %Normal0.0-6.0UnWayne HealthCare Main CampusComment on above:Performed By: #### 55241-5 ####WIL HOLBROOK ([id number])[facility] (ALEX)[address] [place], [place] [address]Cvczhcmkiso distribution width (RBC) [Ratio]17.5 %High11.5-14.5 [facility] HospitalComment on above:Performed By: #### 19693-9 ####WIL HOLBROOK ([id number])[facility] (ALEX)[address] [place], [place] [address]Ftibjvsabn (Bld) [Volume fraction]28.6 %Low 36.0-46.0UnWayne HealthCare Main CampusComment on above:Performed By: #### 89237-8 ####WIL HOLBROOK ([id number])[facility] (ALEX)[address] [place], [place] [address]Lwonscfybb (Bld) [Mass/Vol]8.9 g/dLLow 12.0-16.0UnWayne HealthCare Main CampusComment on above:Performed By: #### 94635-8 ####WIL HOLBROOK ([id number])[facility] (ALEX)[address] [place], [place] [address]Llcloxnq granulocytes (Bld) [#/Vol]0.01 x10*3/uLNormal0.00-0.70UnWayne HealthCare Main CampusComment on above:Performed By: #### 99815-0 ####WIL HOLBROOK ([id number])[facility] (ALEX)[address] [place], [place] [address]Bpydtans granulocytes/100 WBC (Bld)0.3 %Normal0.0-0.9[facility] HospitalComment on above:Result Comment: Immature Granulocyte Count (IG) includes promyelocytes, myelocytes and metamyelocytes but does not include bands. Percent differential counts (%) should be interpreted in the context of the absolute cell counts (cells/UL).Performed By: #### [id number] ####WIL HOLBROOK ([id number])[facility] (ALEX)[address] [place], [place] [address]Kiqqfqjgjac (Bld) [#/Vol]0.75 x10*3/uLLow1.20-4.80[facility] Comment on above:Performed By: #### 53660-8 ####WIL HOLBROOK ([id number])[facility] (ALEX)[address] [place] [address] Lymphocytes/100 WBC (Bld)25.9 %Novpxs37.0-44.0[facility] HospitalComment on above:Performed By: #### 81057-8 ####WIL HOLBROOK ([id number])[facility] (ALEX)[address] [place] [address] MCH (RBC) [Entitic mass]27.1 oaWebjwy53.0-34.0[facility] HospitalComment on above:Performed By: #### 63487-8 ####WIL HOLBROOK ([id number])[facility] (ALEX)[address] [place] [address] MCHC (RBC) [Mass/Vol]31.1 g/dLLow32.0-36.0[facility] HospitalComment on above:Performed By: #### 98214-9 ####WIL HUIILL ([id number])[facility] (ALEX)[address] [place] [address] MCV (RBC) [Entitic vol]87 oVDjmcbl46-732DlcvvdnbaaWayne HealthCare Main CampusComment on above:Performed By: #### 80838-5 ####WIL Villalobos'VANDANA ([id number])[facility] (ALEX)[address] [place], [place] [address]Ckuxuysfu (Bld) [#/Vol]0.59 x10*3/uLNormal0.10-1.00[facility] HospitalComment on above:Performed By: #### 94877-8 ####WIL Villalobos'VANDANA ([id number])[facility] (ALEX)[address] [place] [address] Monocytes/100 WBC (Bld)20.3 %Normal2.0-10.0UnWayne HealthCare Main CampusComment on above:Performed By: #### 19327-7 ####WIL Villalobos'VANDANA ([id number])[facility] (ALEX)[address] [place] [address] Neutrophils (Bld) [#/Vol]1.40 x10*3/uLNormal1.20-7.70UnWayne HealthCare Main CampusComment on above:Result Comment: Percent differential counts (%) should be interpreted in the context of the absolute cell counts (cells/uL).Performed By: #### 63331-2 ####WIL Villalobos'VANDANA ([id number])[facility] (ALEX)[address] [place], [place] [address]Hhecvbljlil/100 WBC (Bld)48.4 %Hcnfuv57.0-80.0[facility] HospitalComment on above:Performed By: #### 19416-3 ####WIL Villalobos'VANDANA ([id number])[facility] (ALEX)[address] [place], [place] [address]Ywnhymyub RBC/100 WBC (Bld) [Ratio]0.0 /100 WBCsNormal0.0-0.0[facility] HospitalComment on above:Performed By: #### 46088-2 ####WIL HOLBROOK ([id number])[facility] (ALEX)[address] [place], [place] [address]Ihuxzohdu (Bld) [#/Vol]78 x10*3/wBQgv599-229SowvdoafduWayne HealthCare Main Campus Comment on above:Performed By: #### 54127-0 ####WIL HOLBROOK ([id number])[facility] (ALEX)[address] [place], [place] [address]FOO (Bld) [#/Vol]3.29 x10*6/uLLow4.00-5.20[facility] Comment on above:Performed By: #### 89837-2 ####WIL HOLBROOK ([id number])[facility] (ALEX)[address] [place], [place] [address]DTX (Bld) [#/Vol]2.9 x10*3/uLLow4.4-11.3[facility] Comment on above:Performed By: #### 83052-3 ####WIL HOLBROOK ([id number])[facility] (ALEX)[address] [place], [place] [address]Gclnrkpumelvr metabolic 2000 panelon 61-68-6471Eihrbuj BCP dye [Mass/Vol]3.5 g/dL3.4 - 5.0 g/dLUnCentervilleALP [Catalytic activity/Vol]106 U/L33 - 136 U/[facility] HospitalALT With P-5'-P [Catalytic activity/Vol]26 U/L7 - 45 U/[facility] HospitalComment on above:Patients treated with Sulfasalazine may generate falsely decreased results for ALT.Anion gap [Moles/Vol]11 mmol/L10 - 20 mmol/[facility] HospitalAST With P-5'-P [Catalytic activity/Vol]43 U/LHigh9 - 39 U/[facility] HospitalBilirubin [Mass/Vol]0.7 mg/dL0.0 - 1.2 mg/dLUnCentervilleCalcium [Mass/Vol]8.8 mg/dL8.6 - 10.3 mg/dLUnCentervilleChloride [Moles/Vol]104 mmol/L98 - 107 mmol/[facility] HospitalCO2 [Moles/Vol]26 mmol/L21 - 32 mmol/[facility] Creatinine [Mass/Vol]0.82 mg/dL0.50 - 1.05 mg/dLUnCentervilleGFR/1.73 sq M.predicted among non-blacks MDRD (S/P/Bld) [Vol rate/Area] 79 mL/min/{1.73_m2}- PINJ.W. Ruby Memorial HospitalComment on above: Calculations of estimated GFR are performed using the 2020 CKD-EPI Study Refit equation without therace variable for the IDMS-Traceable creatinine methods. https://jasn.asnjournals.org/content//ASN.1408730679 Glucose [Mass/Vol]96 mg/dL74 - 99 mg/dLUnCenterville Interpretation and review of laboratory resultsAbnormalUniMount St. Mary HospitalPotassium [Moles/Vol]4.2 mmol/L3.5 - 5.3 mmol/[facility] HospitalProtein [Mass/Vol]5.6 g/dLLow6.4 - 8.2 g/dLUnCentervilleSodium [Moles/Vol]137 mmol/L136 - 145 mmol/[facility] HospitalUrea nitrogen [Mass/Vol]23 mg/dL6 - 23 mg/dLUnCentervilleUnCentervilleAlbumin BCP dye [Mass/Vol]3.5 g/dL Normal3.4-5.0UnWayne HealthCare Main CampusComment on above: Performed By: #### 37693-7 ####WIL HOLBROOK ([id number])[facility] (ALEX)[address] [place], [place] [address]QEN [Catalytic activity/Vol]106 U/L Zdcedq68-533ScqcuymplvWayne HealthCare Main CampusComment on above: Performed By: #### 86828-8 ####WIL HOLBROOK ([id number])[facility] (ALEX)[address] [place], [place] [address]OYM With P-5'-P [Catalytic activity/Vol]26 U/LNormal7-45[facility] Comment on above:Result Comment: Patients treated with Sulfasalazine may generate falsely decreased results for ALT.Performed By: #### 59324-8 ####WIL HOLBROOK ([id number])[facility] (ALEX)[address] [place], [place] [address]Tvbjv gap [Moles/Vol]11 mmol/UOtfqoi76-34BkotnorsfnGreene Memorial HospitalComment on above:Performed By: #### 43729-9 ####WIL HOLBROOK ([id number])[facility] (ALEX)[address] [place] [address] AST With P-5'-P [Catalytic activity/Vol]43 U/LHigh9-39UnWayne HealthCare Main CampusComment on above:Performed By: #### 44002-4 ####WIL HOLBROOK ([id number])[facility] (ALEX)[address] [place] [address]Nqcxszpkg [Mass/Vol]0.7 mg/dLNormal0.0-1.2[facility] HospitalComment on above:Performed By: #### 32125-2 ####WIL HOLBROOK ([id number])[facility] (ALEX)[address] [place] [address] Calcium [Mass/Vol]8.8 mg/dLNormal8.6-10.3[facility] HospitalComment on above:Performed By: #### 69560-8 ####WIL HOLBROOK ([id number])[facility] (ALEX)[address] [place], [place] [address]Hexnfsug [Moles/Vol]104 mmol/LTjvdbn73-367XeyzlzrmyvGreene Memorial Hospital Comment on above:Performed By: #### 22409-4 ####WIL Villalobos'VANDANA ([id number])[facility] (ALEX)[address] [place], [place] [address]NR6 [Moles/Vol]26 mmol/ZLfmooo34-29LluqcbungkGreene Memorial Hospital Comment on above:Performed By: #### 36531-3 ####WIL O'VANDANA ([id number])[facility] (ALEX)[address] [place], [place] [address]Tyojquqmuv [Mass/Vol]0.82 mg/dLNormal0.50-1.05[facility] Comment on above:Performed By: #### 08064-0 ####WIL Villalobos'VANDANA ([id number])[facility] (ALEX)[address] [place], [place] [address]Bzdwrbkymn filtration rate/1.73 sq M.kixjyyeui28 mL/min/1.73m*2Normal>60[facility] HospitalComment on above:Result Comment: Calculations of estimated GFR are performed using the 2020 CKD-EPI Study Refit equation without the race variable for the IDMS-Traceable creatinine methods.https://jasn.asnjournals.org/content//ASN.1334747968 Performed By: #### 39132-7 ####WIL Villalobos'VANDANA ([id number])[facility] (ALEX)[address] [place], [place] [address]Kmttguk [Mass/Vol]96 mg/dLNormal 74-99[facility] HospitalComment on above:Performed By: #### 69863-4 ####WIL O'VANDANA ([id number])[facility] (ALEX)[address] [place], [place] [address]Thnyxefur [Moles/Vol]4.2 mmol/LNormal 3.5-5.3[facility] HospitalComment on above:Performed By: #### 49049-7 ####WIL HOLBROOK ([id number])[facility] (ALEX)[address] [facility] [place] [address]Fdcfztm [Mass/Vol]5.6 g/dLLow6.4-8.2 [facility] HospitalComment on above:Performed By: #### 65968-8 ####WIL Villalobos'VANDANA ([id number])[facility] (ALEX)[address] [facility] [address]Ikrnyc [Moles/Vol]137 mmol/UJhqlzf610-718QqxxlzgpsgWayne HealthCare Main CampusComment on above:Performed By: #### 00128-1 ####WIL Villalobos'VANDANA ([id number])[facility] (ALEX)[address] [facility], [place] [address]Opzt nitrogen [Mass/Vol]23 mg/dLNormal6-23[facility] HospitalComment on above:Performed By: #### 39165-2 ####WIL HOLBROOK ([id number])[facility] (AELX)[address] [facility], [place] [address]DVQNTNRBQYKZVUV (IGG, IGA, IGM)on 68-53-9703IrO [Mass/Vol] mg/aXTho10-774GlhqldhznhWayne HealthCare Main CampusComment on above: Order Comment: MONOCLONAL PROTEINS MAY CAUSE FALSELY LOWRESULTS IN THIS ASSAY. SERUM PROTEINELECTROPHORESIS SHOULD BE DONE THEFIRST TEST TO EVALUATE MONOCLONAL GAMMOPATHY.Performed By: #### IGS ####ARNULFO Roger ([id number])[facility] ([facility])[address] [facility] [place], [place] [address]MfE [Mass/Vol]529 mg/zMBga867-0979ExmjtglmulWayne HealthCare Main CampusComment on above: Order Comment: MONOCLONAL PROTEINS MAY CAUSE FALSELY LOWRESULTS IN THIS ASSAY. SERUM PROTEINELECTROPHORESIS SHOULD BE DONE THEFIRST TEST TO EVALUATE MONOCLONAL GAMMOPATHY.Performed By: #### IGS ####ARNULFO Roger ([id number])[facility] ([facility])[address] [place], [place] [address]EuP [Mass/Vol]mg/dL Bcc08-418MwwurrdkotWayne HealthCare Main CampusComment on above:Order Comment: MONOCLONAL PROTEINS MAY CAUSE FALSELY LOWRESULTS IN THIS ASSAY. SERUM PROTEINELECTROPHORESIS SHOULD BE DONE THEFIRST TEST TO EVALUATE MONOCLONAL GAMMOPATHY.Performed By: #### IGS ####ARNULFO Roger ([id number])[facility] ([facility])[address] [place] [address]Mpdtybowuuojiu light chains.free panel (S)on 98-21-8416Byebntfjygrcad light chains.kappa [Mass/Vol]<0.08Low 0.33-1.94[facility] Memorial HospitalComment on above:Order Comment: Undetected antigen excess is a rare event but cannot beexcluded. If these free lightchain results do not agreewith other clinical or laboratory findings, or if thesample is from a patient that has previously demonstratedantigen excess, the result must be checked by retestingat a higher sample dilution. Results should always beinterpreted in conjunction with other laboratory testsand clinical evidence; any anomalies should be discussedwith the testing laboratory.Performed By: #### 17105-6 ####ARNULFO Roger ([id number])[facility] ([facility])[address] [place] [address]Vbsbpmwqzjuagc light chains.kappa/Immunoglobulin light chains.lambda (S) [Mass ratio]Normal [facility] HospitalComment on above:Order Comment: Undetected antigen excess is a rare event but cannot beexcluded. If these free lightchain results do not agreewith other clinical or laboratory findings, or if thesample is from a patient that has previously demonstratedantigen excess, the result must be checked by retestingat a higher sample dilution. Results should always beinterpreted in conjunction with other laboratory testsand clinical evidence; any anomalies should be discussedwith the testing laboratory.Result Comment: One or more analytes used in this calculationis outside of the analytical measurement range.Calculation cannot be performed.Performed By: #### 48688-3 ####ARNULFO Roger ([id number])[facility] ([facility])[address] [place], [place] [address]Lxdcjroycvnvvw light chains.lambda [Mass/Vol]<0.17Low 0.57-2.63UnWayne HealthCare Main CampusComment on above:Order Comment: Undetected antigen excess is a rare event but cannot beexcluded. If these free lightchain results do not agreewith other clinical or laboratory findings, or if thesample is from a patient that has previously demonstratedantigen excess, the result must be checked by retestingat a higher sample dilution. Results should always beinterpreted in conjunction with other laboratory testsand clinical evidence; any anomalies should be discussedwith the testing laboratory.Performed By: #### 14881-8 ####ARNULFO Roger ([id number])[facility] ([facility])[id number] [place] [address]Hlfyjmokntldspw (IgG, IgA, IgM)Ordered By: Moy Kwong on 63-78-7668YxN [Mass/Vol]mg/dL Low70 - 400 mg/dLUnCentervilleIgG [Mass/Vol]529 mg/jZXrs405 - 1600 mg/dLKettering Health PrebleIgM [Mass/Vol]mg/dLLow40 - 230 mg/dLUnCentervilleInterpretation and review of laboratory resultsAbnoAvita Health SystemMONOCLONAL PROTEINS MAY CAUSE FALSELY LOW RESULTS IN THIS ASSAY. SERUM PROTEIN ELECTROPHORESIS SHOULD BE DONE THE FIRST TEST TO EVALUATE MONOCLONAL GAMMOPATHY.[facility] Medical CenterProteinon 57-73-1150Cizieti [Mass/Vol]5.5 g/dL Low6.4-8.2[facility] HospitalComment on above: Performed By: #### 2885-2 ####ARNULFO Roger ([id number])[facility] ([facility])[address] [place], [place] [address]Iymazpc electrophoresis panelon 07-26-2024 Albumin [Mass/Vol]3.3 g/dLLow3.4-5.0[facility] HospitalComment on above:Performed By: #### 41433-8 ####ARNULFO Roger ([id number])[facility] ([facility])[address] [place], [place] [address]ZCMTF 1 GLOBULIN0.3 g/dLNormal0.2-0.6[facility] HospitalComment on above: Performed By: #### 26439-2 ####ARNULFO Roger ([id number])[facility] ([facility])[address] [place], [place] [address]JCMIY 2 GLOBULIN0.7 g/dLNormal0.4-1.1[facility] HospitalComment on above:Performed By: #### 66879-3 ####ARNULFO Roger ([id number])[facility] ([facility])[address] [place], [place] [address]EFRL GLOBULIN0.7 g/dLNormal0.5-1.2[facility] HospitalComment on above:Performed By: #### 33500-7 ####ARNULFO Roger ([id number])[facility] ([facility])[address] [place] [address]AAARC GLOBULIN0.5 g/dLNormal0.5-1.4[facility] HospitalComment on above: Performed By: #### 54826-1 ####ARNULFO Roger ([id number])[facility] ([facility])[address] [place] [address]YZAJ REVIEW-SERUM PROTEIN ELECTROPHORESIS Reviewed and approved by CASS FREEDMAN on 07/28/24 at 9:40 AM.[facility]itan HospitalComment on above:Performed By: #### 79053-4 ####ARNULFO Roger ([id number])[facility] ([facility])[address] [place] [address]GIOQURG ELECTROPHORESIS COMMENTSEE COMMENTNormalUniBucyrus Community HospitalComment on above:Result Comment: Hypoalbuminemia. Performed By: #### 15598-2 ####ARNULFO Roger ([id number])[facility] ([facility])[address] [place], [place] [address]SKC W Auto Differential panel (Bld)on 02-59-0996Celslhfew (Bld) [#/Vol]0.01 x10*3/uLNormal0.00-0.10[facility] HospitalComment on above:Performed By: #### 38810-7 ####WIL HOLBROOK ([id number])[facility] ([facility])[address] [place], [place] [address]Qlozhgliy/100 WBC (Bld)0.3 %Normal0.0-2.0UnWayne HealthCare Main CampusComment on above:Performed By: #### 94738-4 ####WIL HOLBROOK ([id number])[facility] (ALEX)[address] [place], [place] [address]Etxuhdrqhro (Bld) [#/Vol]0.10 x10*3/uLNormal0.00-0.70 [facility] HospitalComment on above:Performed By: #### 02299-9 ####WIL HOLBROOK ([id number])[facility] (ALEX)[address] [place], [place] [address]Xsvnwjnfrha/100 WBC (Bld)3.0 %Normal0.0-6.0 [facility] HospitalComment on above:Performed By: #### 89760-2 ####WIL HOLBROOK (232754)[facility] (ALEX)[address] [place], [place] [address]Wjrpryxjgmw distribution width (RBC) [Ratio]17.8 % High11.5-14.5UnWayne HealthCare Main CampusComment on above: Performed By: #### 50181-7 ####WIL HOLBROOK ([id number])[facility] (ALEX)[address] [place], [place] [address]Dahgnkgsus (Bld) [Volume fraction] 28.7 %Low36.0-46.0[facility] HospitalComment on above: Performed By: #### 05089-2 ####WIL HOLBROOK ([id number])[facility] (ALEX)[address] [place] [address]Fzxelmhnmr (Bld) [Mass/Vol]9.0 g/dL Low12.0-16.0UnWayne HealthCare Main CampusComment on above: Performed By: #### 17350-3 ####WIL HOLBROOK ([id number])[facility] (ALEX)[address] [place] [address]Skcncxxz granulocytes (Bld) [#/Vol] 0.05 x10*3/uLNormal0.00-0.70UnWayne HealthCare Main CampusComment on above:Performed By: #### 64707-2 ####WIL HOLBROOK ([id number])[facility] (ALEX)[address] [place], [place] [address]Alizunfw granulocytes/100 WBC (Bld)1.5 %High0.0-0.9UnWayne HealthCare Main CampusComment on above:Result Comment: Immature Granulocyte Count (IG) includes promyelocytes, myelocytes and metamyelocytes but does not include bands. Percent differential counts (%) should be interpreted in the context of the absolute cell counts (cells/UL).Performed By: #### 57351-7 ####WIL HOLBROOK ([id number])[facility] (ALEX)[address] [place] [address] Lymphocytes (Bld) [#/Vol]0.78 x10*3/uLLow1.20-4.80[facility] HospitalComment on above:Performed By: #### 70923-5 ####WIL HOLBROOK (575683)[facility] (ALEX)[address] [place] [address] Lymphocytes/100 WBC (Bld)23.6 %Lmovgk09.0-44.0[facility] HospitalComment on above:Performed By: #### 99477-6 ####WIL Villalobos'VANDANA (110317)[facility] (ALEX)[address] [place] [address] MCH (RBC) [Entitic mass]27.9 reJkepte15.0-34.0UnWayne HealthCare Main CampusComment on above:Performed By: #### 54269-1 ####WIL Villalobos'VANDANA ([id number])[facility] (ALEX)[address] [place] [address] MCHC (RBC) [Mass/Vol]31.4 g/dLLow32.0-36.0[facility] HospitalComment on above:Performed By: #### 75998-8 ####WIL Villalobos'VANDANA (983552)[facility] (ALEX)[address] [place] [address] MCV (RBC) [Entitic vol]89 xLHiioll77-256BuknuqdrzfGreene Memorial HospitalComment on above:Performed By: #### 43992-8 ####WIL Villalobos'VANDANA (788694)[facility] (ALEX)[address] [place] [address]Dndebrqmo (Bld) [#/Vol]0.59 x10*3/uLNormal0.10-1.00[facility] HospitalComment on above:Performed By: #### 81575-4 ####WIL Villalobos'VANDANA ([id number])[facility] (ALEX)[address] [place] [address] Monocytes/100 WBC (Bld)17.9 %Normal2.0-10.0[facility] HospitalComment on above:Performed By: #### 38153-0 ####WIL Villalobos'VANDANA ([id number])[facility] (ALEX)[address] [place] [address] Neutrophils (Bld) [#/Vol]1.77 x10*3/uLNormal1.20-7.70[facility] HospitalComment on above:Result Comment: Percent differential counts (%) should be interpreted in the context of the absolute cell counts (cells/uL).Performed By: #### 86057-2 ####WIL HOLBROOK ([id number])[facility] (ALEX)[address] [place], [place] [address]Npavlpvdlwp/100 WBC (Bld)53.7 %Fdrgqx91.0-80.0[facility] HospitalComment on above:Performed By: #### 40337-1 ####WIL HOLBROOK (500911)[facility] (ALEX)[address] [place] [address]Sxhoeviws RBC/100 WBC (Bld) [Ratio]0.0 /100 WBCsNormal0.0-0.0[facility] HospitalComment on above:Performed By: #### 82188-8 ####WIL HOLBROOK (622826)[facility] (ALEX)[address] [place] [address]Jrfnrufro (Bld) [#/Vol]74 x10*3/oPFwx899-871RunkbvpfzdWayne HealthCare Main Campus Comment on above:Performed By: #### 66494-8 ####WIL HOLBROOK ([id number])[facility] (ALEX)[address] [place], [place] [address]GBG (Bld) [#/Vol]3.23 x10*6/uLLow4.00-5.20[facility] Comment on above:Performed By: #### 21911-7 ####WIL Villalobos'VANDANA (145194)[facility] (ALEX)[address] [place] [address]LDZ (Bld) [#/Vol]3.3 x10*3/uLLow4.4-11.3[facility] Comment on above:Performed By: #### 29170-6 ####WIL HOLBROOK ([id number])[facility] (ALEX)[address] [place] [address]Boinhunpxdecn metabolic 2000 panelon 01-56-0665Tcougde BCP dye [Mass/Vol]3.3 g/dLLow3.4-5.0 [facility] HospitalComment on above:Performed By: #### 81468-7 ####WIL HOLBROOK ([id number])[facility] (ALEX)[address] [place], [place] [address]RGJ [Catalytic activity/Vol]126 U/HEapahs89-063 [facility] HospitalComment on above:Performed By: #### 30237-7 ####WIL HOLBROOK (664709)[facility] (ALEX)[address] [place] [address]GWD With P-5'-P [Catalytic activity/Vol]17 U/L Normal7-45[facility] HospitalComment on above:Result Comment: Patients treated with Sulfasalazine may generate falsely decreased results for ALT.Performed By: #### 29358-4 ####WIL HOLBROOK ([id number])[facility] (ALEX)[address] [place], [place] [address]Gijjl gap [Moles/Vol]14 mmol/MRuieem12-59IxuoaptkcgGreene Memorial Hospital Comment on above:Performed By: #### 63864-2 ####WIL HOLBROOK ([id number])[facility] (ALEX)[address] [place], [place] [address]OHT With P-5'-P [Catalytic activity/Vol]30 U/LNormal9-39[facility] HospitalComment on above:Performed By: #### 18151-4 ####WIL HOLBROOK (144649)[facility] (ALEX)[address] [place] [address] Bilirubin [Mass/Vol]0.6 mg/dLNormal0.0-1.2[facility] HospitalComment on above:Performed By: #### 36432-5 ####WIL HOLBROOK ([id number])[facility] (ALEX)[address] [place] [address] Calcium [Mass/Vol]8.4 mg/dLLow8.6-10.3[facility] HospitalComment on above:Performed By: #### 44088-5 ####WIL Villalobos'VANDANA ([id number])[facility] (ALEX)[address] [place] [address]Eyghnjyl [Moles/Vol]102 mmol/MQmvaqt25-488YeytqjdaxtGreene Memorial Hospital Comment on above:Performed By: #### 98333-0 ####WIL Villalobos'VANDANA (692319)[facility] (ALEX)[address] [place] [address]UL1 [Moles/Vol]26 mmol/AUxnkmq22-14NzaaahquhzGreene Memorial Hospital Comment on above:Performed By: #### 22981-8 ####WIL Villalobos'VANDANA ([id number])[facility] (ALEX)[address] [place], [place] [address]Jrbehovrwv [Mass/Vol]0.75 mg/dLNormal0.50-1.05[facility] Comment on above:Performed By: #### 19563-9 ####WIL Villalobos'VANDANA ([id number])[facility] (ALEX)[address] [place], [place] [address]Jratzicppm filtration rate/1.73 sq M.tlmaudfmd87 mL/min/1.73m*2Normal>60[facility] HospitalComment on above:Result Comment: Calculations of estimated GFR are performed using the 2020 CKD-EPI Study Refit equation without the race variable for the IDMS-Traceable creatinine methods.https://jasn.asnjournals.org/content/early/ASN.0371126306 Performed By: #### 98333-5 ####WIL HOLBROOK ([id number])[facility] (ALEX)[address] [place], [place] [address]Mgghjkg [Mass/Vol]101 mg/dLHigh 74-99UnWayne HealthCare Main CampusComment on above:Performed By: #### 83343-7 ####WIL HOLBROOK ([id number])[facility] (ALEX)[address] [place], [place] [address]Jkwjcmtma [Moles/Vol]4.5 mmol/LNormal 3.5-5.3[facility] HospitalComment on above:Performed By: #### 41511-8 ####WIL HOLBROOK ([id number])[facility] (ALEX)[address] [place], [place] [address]Owcnbtw [Mass/Vol]5.5 g/dLLow6.4-8.2 [facility] HospitalComment on above:Performed By: #### 76868-1 ####WIL HOLBROOK ([id number])[facility] (ALEX)[address] [place], [place] [address]Rpreah [Moles/Vol]137 mmol/NTdrnfw735-825XpyowkphvlGreene Memorial HospitalComment on above:Performed By: #### 15445-6 ####WIL HOLBROOK ([id number])[facility] (ALEX)[address] [place], [place] [address]Shnk nitrogen [Mass/Vol]27 mg/dLHigh6-23UnWayne HealthCare Main CampusComment on above:Performed By: #### 63300-1 ####WIL HOLBROOK ([id number])[facility] (ALEX)[address] [place], [place] [address]YOCQVHLNXHLLGCJ (IGG, IGA, IGM)on 02-75-1182BtD [Mass/Vol] mg/wVMji20-626KscknyzjuoGreene Memorial HospitalComment on above: Order Comment: MONOCLONAL PROTEINS MAY CAUSE FALSELY LOWRESULTS IN THIS ASSAY. SERUM PROTEINELECTROPHORESIS SHOULD BE DONE THEFIRST TEST TO EVALUATE MONOCLONAL GAMMOPATHY.Performed By: #### IGS ####ARNULFO Roger ([id number])[facility] ([facility])[id number] [place] [address] 05341LsP [Mass/Vol]451 mg/jJVpx087-5592TyilxunaqiWayne HealthCare Main CampusComment on above: Order Comment: MONOCLONAL PROTEINS MAY CAUSE FALSELY LOWRESULTS IN THIS ASSAY. SERUM PROTEINELECTROPHORESIS SHOULD BE DONE THEFIRST TEST TO EVALUATE MONOCLONAL GAMMOPATHY.Performed By: #### IGS ####ARNULFO Roger ([id number])[facility] ([facility])[address] [place] [address] 69710JaW [Mass/Vol]mg/dL Wcr86-167HxxhvouffmWayne HealthCare Main CampusComment on above:Order Comment: MONOCLONAL PROTEINS MAY CAUSE FALSELY LOWRESULTS IN THIS ASSAY. SERUM PROTEINELECTROPHORESIS SHOULD BE DONE THEFIRST TEST TO EVALUATE MONOCLONAL GAMMOPATHY.Performed By: #### IGS ####ARNULFO Roger ([id number])[facility] ([facility])[address] [place] [address] 51789Iqoikivgavgejs light chains.free panel (S)on 03-16-8810Xsiezzbpnxojlb light chains.kappa [Mass/Vol]<0.08Low 0.33-1.94[facility] HospitalComment on above:Order Comment: Undetected antigen excess is a rare event but cannot beexcluded. If these free lightchain results do not agreewith other clinical or laboratory findings, or if thesample is from a patient that has previously demonstratedantigen excess, the result must be checked by retestingat a higher sample dilution. Results should always beinterpreted in conjunction with other laboratory testsand clinical evidence; any anomalies should be discussedwith the testing laboratory.Performed By: #### 86094-8 ####ARNULFO Roger ([id number])[facility] ([facility])[id number] [place] [address] 42664Vcylwmcqdnnoan light chains.kappa/Immunoglobulin light chains.lambda (S) [Mass ratio]Normal [facility] HospitalComment on above:Order Comment: Undetected antigen excess is a rare event but cannot beexcluded. If these free lightchain results do not agreewith other clinical or laboratory findings, or if thesample is from a patient that has previously demonstratedantigen excess, the result must be checked by retestingat a higher sample dilution. Results should always beinterpreted in conjunction with other laboratory testsand clinical evidence; any anomalies should be discussedwith the testing laboratory.Result Comment: One or more analytes used in this calculationis outside of the analytical measurement range.Calculation cannot be performed.Performed By: #### 96872-7 ####ARNULFO Roger ([id number])[facility] ([facility])[address] [place] [address] 71415Zhluixnbguuxda light chains.lambda [Mass/Vol]<0.17Low 0.57-2.63UnWayne HealthCare Main CampusComment on above:Order Comment: Undetected antigen excess is a rare event but cannot beexcluded. If these free lightchain results do not agreewith other clinical or laboratory findings, or if thesample is from a patient that has previously demonstratedantigen excess, the result must be checked by retestingat a higher sample dilution. Results should always beinterpreted in conjunction with other laboratory testsand clinical evidence; any anomalies should be discussedwith the testing laboratory.Performed By: #### 00420-7 ####ARNULFO Roger ([id number])[facility] ([facility])[address] [place], [place] [address]Brtpjni dehydrogenaseon 56-97-5083IZV Lactate to pyruvate reaction [Catalytic activity/Vol]246 U/JEjisso32-202ZuurxiwvrgWayne HealthCare Main Campus Comment on above:Performed By: #### 41380-8 ####WIL HOLBROOK ([id number])[facility] ([facility])[address] [place], [place] [address]Pvhwobjwx 27-16-4218Kptibkr [Mass/Vol]5.2 g/dLLow6.4-8.2[facility] HospitalComment on above:Performed By: #### 2885-2 ####ARNULFO Roger ([id number])[facility] ([facility])[address] [place], [place] [address]Erjtucp electrophoresis panelon 71-30-2729Vyyuudk [Mass/Vol]3.2 g/dLLow3.4-5.0UnWayne HealthCare Main CampusComment on above:Performed By: #### 98012-9 ####ARNULFO Roger ([id number])[facility] ([facility])[address] [place], [place] [address]ZSMQR 1 GLOBULIN0.3 g/dLNormal0.2-0.6UnWayne HealthCare Main CampusComment on above:Performed By: #### 77809-4 ####ARNULFO Roger ([id number])[facility] ([facility])[address] [place], [place] [address]NHPTW 2 GLOBULIN0.7 g/dLNormal0.4-1.1[facility] Comment on above:Performed By: #### 89153-7 ####ARNULFO Roger ([id number])[facility] ([facility])[address] [place], [place] [address]JPIB GLOBULIN0.7 g/dLNormal0.5-1.2[facility] HospitalComment on above: Performed By: #### 98053-8 ####ARNULFO Roger ([id number])[facility] ([facility])[address] [place], [place] [address]ZGQED GLOBULIN0.3 g/dLLow0.5-1.4UnWayne HealthCare Main CampusComment on above:Performed By: #### 65537-1 ####ARNULFO Roger ([id number])[facility] ([facility])[address] [place], [place] [address]VMJS REVIEW-SERUM PROTEIN ELECTROPHORESISSEE COMMENTNormalUniversUniversity Hospitals Geauga Medical CenterComment on above:Result Comment: Reviewed and approved by TIFFANIE TOWNSEND on 07/06/24 at 9:06 PM.Performed By: #### 63439-4 ####ARNULFO Roger ([id number])[facility] ([facility])[address] [place], [place] [address]DAOYBSJ ELECTROPHORESIS COMMENTSEE COMMENTNormalUniBucyrus Community HospitalComment on above:Result Comment: Hypoalbuminemia. Decrease in polyclonal gamma globulins.Performed By: #### 85618-3 ####ARNULFO Roger ([id number])[facility] ([facility])[address] [place], [place] [address]Xulbvjn 23-72-0634Qgqcu [Mass/Vol]6.9 mg/dLHigh2.3-6.7UnWayne HealthCare Main CampusComment on above:Result Comment: Venipuncture immediately after or during the administration of Metamizole may lead to falsely low results. Testing should be performed immediatelyprior to Metamizole dosing.Performed By: #### 3084-1 ####WIL HOLBROOK ([id number])[facility] (ALEX)[address] [place], [place] [address]ReZ8o (Bld) [Mass fraction]on 06-20-2024 Interpretation and review of laboratory resultsAbnoFormerly named [facility]Labor[facility] - Hematology and Cell countson 66-53-7113ByW1o (Bld) [Mass fraction]5.7 %[facility] W Auto Differential panel (Bld)on 06-14-2024 Basophils (Bld) [#/Vol]0.01 x10*3/uLNormal0.00-0.10[facility] HospitalComment on above:Performed By: #### 80839-4 ####WIL HOLBROOK ([id number])[facility] (ALEX)[address] [place] [address]Pofszmteb/100 WBC (Bld)0.3 %Normal0.0-2.0UnWayne HealthCare Main CampusComment on above:Performed By: #### 34645-0 ####WIL HOLBROOK ([id number])[facility] (ALEX)[address] [place] [address] Eosinophils (Bld) [#/Vol]0.13 x10*3/uLNormal0.00-0.70UnWayne HealthCare Main CampusComment on above:Performed By: #### 91998-1 ####WIL HOLBROOK ([id number])[facility] (ALEX)[address] [place], [place] [address]Ftybxsyofms/100 WBC (Bld)3.3 %Normal0.0-6.0UnWayne HealthCare Main CampusComment on above:Performed By: #### 83328-7 ####WIL Villalobos'VANDANA ([id number])[facility] (ALEX)[address] [place] [address]Lcgpswnkwlk distribution width (RBC) [Ratio]19.5 %High11.5-14.5 [facility] HospitalComment on above:Performed By: #### 92336-1 ####WIL HOLBROOK ([id number])[facility] (ALEX)[address] [place], [place] [address]Efnaccsdfu (Bld) [Volume fraction]28.4 %Low 36.0-46.0UnWayne HealthCare Main CampusComment on above:Performed By: #### 83315-8 ####WIL HOLBROOK (005641)[facility] (ALEX)[address] [place], [place] [address]Uhcyuuaxhw (Bld) [Mass/Vol]9.0 g/dLLow 12.0-16.0UnWayne HealthCare Main CampusComment on above:Performed By: #### 55707-7 ####WIL HOLBROOK ([id number])[facility] (ALEX)[address] [place] [address]Ieculhiy granulocytes (Bld) [#/Vol]0.01 x10*3/uLNormal0.00-0.70UnWayne HealthCare Main CampusComment on above:Performed By: #### 36635-8 ####WIL HOLBROOK ([id number])[facility] (ALEX)[address] [place], [place] [address]Pivdpoup granulocytes/100 WBC (Bld)0.3 %Normal0.0-0.9[facility] HospitalComment on above:Result Comment: Immature Granulocyte Count (IG) includes promyelocytes, myelocytes and metamyelocytes but does not include bands. Percent differential counts (%) should be interpreted in the context of the absolute cell counts (cells/UL).Performed By: #### 72608-2 ####WIL HOLBROOK ([id number])[facility] (ALEX)[address] [place] [address]Xgngvepcaeo (Bld) [#/Vol]1.01 x10*3/uLLow1.20-4.80[facility] Comment on above:Performed By: #### 68701-6 ####WIL HOLBROOK ([id number])[facility] (ALEX)[address] [place] [address] Lymphocytes/100 WBC (Bld)25.4 %Dclljr11.0-44.0UnWayne HealthCare Main CampusComment on above:Performed By: #### 76462-7 ####WIL HOLBROOK ([id number])[facility] (ALEX)[address] [place] [address] MCH (RBC) [Entitic mass]27.4 ppZvhoxc19.0-34.0UnWayne HealthCare Main CampusComment on above:Performed By: #### 19236-9 ####WIL HOLBROOK ([id number])[facility] (ALEX)[address] [place] [address] MCHC (RBC) [Mass/Vol]31.7 g/dLLow32.0-36.0[facility] HospitalComment on above:Performed By: #### 65924-6 ####WIL HOLBROOK (128841)[facility] (ALEX)[address] [place] [address] MCV (RBC) [Entitic vol]86 cFOyuxak57-645IvzguoqrocGreene Memorial HospitalComment on above:Performed By: #### 57697-3 ####WIL HOLBROOK ([id number])[facility] (ALEX)[address] [place] [address]Bdiitojhb (Bld) [#/Vol]0.63 x10*3/uLNormal0.10-1.00UnWayne HealthCare Main CampusComment on above:Performed By: #### 93603-1 ####WIL HOLBROOK (506294)[facility] (ALEX)[address] [place] [address] Monocytes/100 WBC (Bld)15.8 %Normal2.0-10.0UnWayne HealthCare Main CampusComment on above:Performed By: #### 89668-7 ####WIL HOLBROOK (011969)[facility] (ALEX)[address] [place] [address] Neutrophils (Bld) [#/Vol]2.19 x10*3/uLNormal1.20-7.70UnWayne HealthCare Main CampusComment on above:Result Comment: Percent differential counts (%) should be interpreted in the context of the absolute cell counts (cells/uL).Performed By: #### 62781-9 ####WIL HOLBROOK ([id number])[facility] (ALEX)[address] [place] [address]Jjwhekwsqko/100 WBC (Bld)54.9 %Qmcdcm07.0-80.0[facility] HospitalComment on above:Performed By: #### 12660-1 ####WIL HOLBROOK (661949)[facility] (ALEX)[address] [place], [place] [address]Hwqykspdi RBC/100 WBC (Bld) [Ratio]0.0 /100 WBCsNormal0.0-0.0[facility] HospitalComment on above:Performed By: #### 82325-8 ####WIL HOLBROOK ([id number])[facility] (ALEX)[address] [place], [place] [address]Wtcgcncwl (Bld) [#/Vol]63 x10*3/wCYby854-099QzexjcpoerWayne HealthCare Main Campus Comment on above:Performed By: #### 61854-4 ####WIL HOLBROOK (744116)[facility] (ALEX)[address] [place], [place] [address]LYB (Bld) [#/Vol]3.29 x10*6/uLLow4.00-5.20[facility] Comment on above:Performed By: #### 84220-9 ####WIL HOLBROOK ([id number])[facility] (ALEX)[address] [place], [place] [address]XGT (Bld) [#/Vol]4.0 x10*3/uLLow4.4-11.3[facility] Comment on above:Performed By: #### 76172-3 ####WIL HOLBROOK ([id number])[facility] (ALEX)[address] [place], [place] [address]Wtxeypnknxfjf metabolic 2000 panelon 68-04-3422Ybgpwxq BCP dye [Mass/Vol]3.3 g/dLLow3.4-5.0 [facility] HospitalComment on above:Performed By: #### 46410-6 ####ARNULFO Rogre (48388)[facility] ([facility])[address] [place], [place] [address]QYP [Catalytic activity/Vol]108 U/AWqtjkw02-808 [facility] HospitalComment on above:Performed By: #### 39267-2 ####ARNULFO Roger (22655)[facility] ([facility])[address] [place], [place] [address]FWT With P-5'-P [Catalytic activity/Vol]26 U/LNormal 7-45UnWayne HealthCare Main CampusComment on above:Result Comment: Patients treated with Sulfasalazine may generate falsely decreased results for ALT.Performed By: #### 88038-6 ####ARNULFO Roger (28024)[facility] ([facility])[address] [facility] [place], [place] [address]Zutpg gap [Moles/Vol]10 mmol/PDfwlvg30-13RpnftmbgovGreene Memorial Hospital Comment on above:Performed By: #### 50592-1 ####ARNULFO Roger ([id number])[facility] ([facility])[address] [place], [place] [address]KVW With P-5'-P [Catalytic activity/Vol]34 U/LNormal9-39UnWayne HealthCare Main CampusComment on above:Performed By: #### 33932-6 ####ARNULFO Roger (58946)[facility] ([facility])[address] [facility] [place], [place] [address]Cyufcanjy [Mass/Vol] 0.9 mg/dLNormal0.0-1.2[facility] HospitalComment on above:Performed By: #### 98964-8 ####ARNULFO Roger ([id number])[facility] ([facility])[address] [facility] [place], [place] [address]Wmrxefn [Mass/Vol]8.4 mg/dLLow 8.6-10.6[facility] HospitalComment on above:Performed By: #### 62771-7 ####ARNULFO Roger (93752)[facility] ([facility])[address] [facility] [place], [place] [address]Ckvyytay [Moles/Vol]101 mmol/PQcmhxj52-636CbzmzpgdivWayne HealthCare Main CampusComment on above:Performed By: #### 66158-3 ####ARNULFO Roger (84203)[facility] ([facility])[address] [facility] [place], [place] [address]EN1 [Moles/Vol]27 mmol/CAkrguv40-67UclovsjujdWayne HealthCare Main CampusComment on above:Performed By: #### 31255-7 ####ARNULFO Roger ([id number])[facility] ([facility])[address] [place], [place] [address]Bpndfnebyu [Mass/Vol]0.90 mg/dLNormal0.50-1.05UnWayne HealthCare Main Campus Comment on above:Performed By: #### 16859-9 ####ARNULFO Roger (47351)[facility] ([facility])[address] [place], [place] [address]Gtqkqwwggt filtration rate/1.73 sq M. mL/min/1.73m*2Normal>60UnWayne HealthCare Main CampusComment on above:Result Comment: Calculations of estimated GFR are performed using the 2020 CKD-EPI Study Refit equation without the race variable for the IDMS-Traceable creatinine methods.https://jasn.asnjournals.org/content//ASN.4727568447 Performed By: #### 75470-0 ####ARNULFO Roger (35979)[facility] ([facility])[address] [place], [place] [address]Wzuijsk [Mass/Vol]136 mg/nJJmqm47-39PfdhcjrtjuWayne HealthCare Main CampusComment on above:Performed By: #### 79614-3 ####ARNULFO Roger (47286)[facility] ([facility])[address] [place], [place] [address]Ucmiriskm [Moles/Vol]4.4 mmol/LNormal3.5-5.3[facility] HospitalComment on above:Performed By: #### 78554-6 ####ARNULFO GARCIA L (05203)[facility] ([facility])[address] [place], [place] [address]Bgeqobh [Mass/Vol]5.3 g/dLLow6.4-8.2UnWayne HealthCare Main CampusComment on above:Performed By: #### 82880-8 ####ARNULFO GARCIA L (61645)[facility] ([facility])[address] [place], [place] [address]Kxhrja [Moles/Vol]134 mmol/LLow 136-145[facility] HospitalComment on above:Performed By: #### 68814-3 ####ARNULFO Roger (86887)[facility] ([facility])[address] [place], [place] [address]Whtl nitrogen [Mass/Vol]23 mg/dLNormal6-23[facility] HospitalComment on above:Performed By: #### 96928-6 ####ARNULFO Roger (21281)[facility] ([facility])[address] [place], [place] [address]OHNPTXLSMFYIDFT (IGG, IGA, IGM)on 95-00-4235RaU [Mass/Vol]mg/mRMql99-386 [facility] HospitalComment on above:Order Comment: MONOCLONAL PROTEINS MAY CAUSE FALSELY LOWRESULTS IN THIS ASSAY. SERUM PROTEINELECTROPHORESIS SHOULD BE DONE THEFIRST TEST TO EVALUATE MONOCLONAL GAMMOPATHY.Performed By: #### IGS ####ARNULFO Roger ([id number])[facility] ([facility])[address] [place], [place] [address]DhM [Mass/Vol]576 mg/sUSje041-0006 [facility] HospitalComment on above:Order Comment: MONOCLONAL PROTEINS MAY CAUSE FALSELY LOWRESULTS IN THIS ASSAY. SERUM PROTEINELECTROPHORESIS SHOULD BE DONE THEFIRST TEST TO EVALUATE MONOCLONAL GAMMOPATHY.Performed By: #### IGS ####ARNULFO GARCIA L ([id number])[facility] ([facility])[address] [place], [place] [address]VnT [Mass/Vol]mg/iRMiy16-222 [facility] HospitalComment on above:Order Comment: MONOCLONAL PROTEINS MAY CAUSE FALSELY LOWRESULTS IN THIS ASSAY. SERUM PROTEINELECTROPHORESIS SHOULD BE DONE THEFIRST TEST TO EVALUATE MONOCLONAL GAMMOPATHY.Performed By: #### IGS ####ARNULFO GARCIA L ([id number])[facility] ([facility])[address] [place], [place] [address]Nvcgiuislhtqur light chains.free panel (S)on 28-01-1674Qztrbceuztkuno light chains.kappa [Mass/Vol]0.08 mg/dLLow 0.33-1.94[facility] HospitalComment on above:Order Comment: Undetected antigen excess is a rare event but cannot beexcluded. If these free lightchain results do not agreewith other clinical or laboratory findings, or if thesample is from a patient that has previously demonstratedantigen excess, the result must be checked by retestingat a higher sample dilution. Results should always beinterpreted in conjunction with other laboratory testsand clinical evidence; any anomalies should be discussedwith the testing laboratory.Performed By: #### 35310-2 ####ARNULFO Roger (57941)[facility] ([facility])[address] [place] [address]Umcdojqkwxxqac light chains.kappa/Immunoglobulin light chains.lambda (S) [Mass ratio]Normal [facility] HospitalComment on above:Order Comment: Undetected antigen excess is a rare event but cannot beexcluded. If these free lightchain results do not agreewith other clinical or laboratory findings, or if thesample is from a patient that has previously demonstratedantigen excess, the result must be checked by retestingat a higher sample dilution. Results should always beinterpreted in conjunction with other laboratory testsand clinical evidence; any anomalies should be discussedwith the testing laboratory.Result Comment: One or more analytes used in this calculationis outside of the analytical measurement range.Calculation cannot be performed.Performed By: #### 54679-3 ####ARNULFO Roger (04584)[facility] ([facility])[address] [place] [address]Knncjigvkiqjig light chains.lambda [Mass/Vol]<0.17Low 0.57-2.63[facility] HospitalComment on above:Order Comment: Undetected antigen excess is a rare event but cannot beexcluded. If these free lightchain results do not agreewith other clinical or laboratory findings, or if thesample is from a patient that has previously demonstratedantigen excess, the result must be checked by retestingat a higher sample dilution. Results should always beinterpreted in conjunction with other laboratory testsand clinical evidence; any anomalies should be discussedwith the testing laboratory.Performed By: #### 43931-6 ####ARNULFO Roger ([id number])[facility] ([facility])[address] [place], [place] [address]Aulhyui dehydrogenaseon 50-56-7299MQA Lactate to pyruvate reaction [Catalytic activity/Vol]236 U/NOjdxtt55-590BzivwxripcGreene Memorial Hospital Comment on above:Performed By: #### 81798-0 ####ARNULFO Roger ([id number])[facility] ([facility])[address] [place], [place] [address]Qxgrszmrr 06-14-2024 Protein [Mass/Vol]5.1 g/dLLow6.4-8.2[facility] HospitalComment on above:Performed By: #### 2885-2 ####ARNUFLO Roger (48018)[facility] ([facility])[address] [place], [place] [address]Sotxiix electrophoresis panelon 52-83-5546Vzvcgse [Mass/Vol]3.1 g/dLLow3.4-5.0UnWayne HealthCare Main CampusComment on above:Performed By: #### 54074-5 ####ARNULFO Roger (88941)[facility] ([facility])[address] [place], [place] [address]SHBRY 1 GLOBULIN0.3 g/dLNormal0.2-0.6UnWayne HealthCare Main CampusComment on above:Performed By: #### 53876-1 ####ARNULFO Roger ([id number])[facility] ([facility])[address] [place], [place] [address]SVQXI 2 GLOBULIN0.6 g/dLNormal0.4-1.1[facility] Comment on above:Performed By: #### 31807-4 ####ARNULFO Roger ([id number])[facility] ([facility])[address] [place], [place] [address]GBIY GLOBULIN0.6 g/dLNormal0.5-1.2[facility] HospitalComment on above: Performed By: #### 31241-3 ####ARNULFO Roger (48069)[facility] ([facility])[address] [place] [address]RQNLC GLOBULIN0.4 g/dLLow0.5-1.4[facility] HospitalComment on above:Performed By: #### 54226-3 ####ARNULFO Roger ([id number])[facility] ([facility])[address] [place] [address]GNVH REVIEW-SERUM PROTEIN ELECTROPHORESISSEE COMMENTNoCleveland Clinic Lutheran HospitalComment on above:Result Comment: Reviewed and approved by TIFFANIE TOWNSEND on 06/15/24 at 9:36 PM.Performed By: #### 40943-0 ####ARNULFO Roger ([id number])[facility] ([facility])[address] [place] [address] 718[address]TAIWYEQ ELECTROPHORESIS COMMENTSEE COMMENTNoCleveland Clinic Lutheran HospitalComment on above:Result Comment: Hypoalbuminemia. Decrease in polyclonal gamma globulins.Performed By: #### 26922-8 ####ARNULFO Roger ([id number])[facility] ([facility])[address] [place] [address]Erfderf 38-91-2372Vjage [Mass/Vol]6.1 mg/dLNormal2.3-6.7[facility] HospitalComment on above:Result Comment: Venipuncture immediately after or during the administration of Metamizole may lead to falsely low results. Testing should be performed immediatelyprior to Metamizole dosing.Performed By: #### 3084-1 ####ARNULFO Roger ([id number])[facility] ([facility])[address] [place] [address]GZN W Auto Differential panel (Bld)on 05-24-2024 Erythrocyte distribution width (RBC) [Ratio]19.7 %High11.5-14.5[facility] HospitalComment on above:Order Comment: The previously reported component Neutrophils % is no longer being reported.The previously reported component Lymphocytes % is no longer being reported.The previously reported component Monocytes % is no longer being reported.The previously reported component Eosinophils % is no longer being reported.The previously reported component Basophils % is no longer being reported.The previously reported component Absolute Neutrophils is no longer being reported.The previously reported component Absolute Lymphocytes is no longer being reported.The previously reported component AbsoluteMonocytes is no longer being reported.The previously reported component Absolute Eosinophils is no longer being reported.The previously reported component Absolute Basophils is no longer being reported.Performed By: #### [id number] ####WIL HOLBROOK ([id number])[facility] ([facility])[id number] [place], [place] [address]Iiojdxggra (Bld) [Volume fraction]27.8 %Low36.0-46.0[facility] HospitalComment on above:Order Comment: The previously reported component Neutrophils % is no longer being reported.The previously reported component Lymphocytes % is no longer being reported.The previously reported component Monocytes % is no longer being reported.The previously reported component Eosinophils % is no longer being reported.The previously reported component Basophils % is no longer being reported.The previously reported component Absolute Neutrophils is no longer being reported.The previously reported co mponent Absolute Lymphocytes is no longer being reported.The previously reported component AbsoluteMonocytes is no longer being reported.The previously reported component Absolute Eosinophils is no longer being reported.The previously reported component Absolute Basophils is no longer being reported.Performed By: #### 58529-0 ####WIL HOLBROOK ([id number])[facility] (ALEX)[address] [place] [place], [place] [address]Uusmabqjze (Bld) [Mass/Vol]8.9 g/dLLow 12.0-16.0[facility] HospitalComment on above:Order Comment: The previously reported component Neutrophils % is no longer being reported.The previously reported component Lymphocytes % is no longer being reported.The previously reported component Monocytes % is no longer being reported.The previously reported component Eosinophils % is no longer being reported.The previously reported component Basophils % is no longer being reported.The previously reported component Absolute Neutrophils is no longer being reported.The previously reported component Absolute Lymphocytes is no longer being reported.The previously reported component AbsoluteMonocytes is no longer being reported.The previously reported component Absolute Eosinophils is no longer being reported.The previously reported component Absolute Basophils is no longer being reported.Performed By: #### 28794-2 ####WIL HOLBROOK ([id number])[facility] (ALEX)[address] [place] [address] Immature granulocytes (Bld) [#/Vol]0.29 x10*3/uLNormal0.00-0.70[facility] HospitalComment on above:Order Comment: The previously reported component Neutrophils % is no longer being reported.The previously reported component Lymphocytes % is no longer being reported.The previously reported component Monocytes % is no longer being reported.The previously reported component Eosinophils % is no longer being reported.The previously reported component Basophils % is no longer being reported.The previously reported component Absolute Neutrophils is no longer being reported.The previously reported component Absolute Lymphocytes is no longer being reported.The previously reported component AbsoluteMonocytes is no longer being reported.The previously reported component Absolute Eosinophils is no longer being reported.The previously reported component Absolute Basophils is no longer being reported.Performed By: #### 35932-2 ####WIL HOLBROOK ([id number])[facility] (ALEX)[address] [facility] [address]Hutptave granulocytes/100 WBC (Bld)10.8 %High0.0-0.9UnWayne HealthCare Main CampusComment on above:Order Comment: The previously reported component Neutrophils % is no longer being reported.The previously reported component Lymphocytes % is no longer being reported.The previously reported component Monocytes % is no longer being reported.The previously reported component Eosinophils % is no longer being reported.The previously reported component Basophils % is no longer being reported.The previously reported component Absolute Neutrophils is no longer being reported.The previously reported co mponent Absolute Lymphocytes is no longer being reported.The previously reported component AbsoluteMonocytes is no longer being reported.The previously reported component Absolute Eosinophils is no longer being reported.The previously reported component Absolute Basophils is no longer being reported.Result Comment: Immature Granulocyte Count (IG) includes promyelocytes, myelocytes and metamyelocytes but does not include bands. Percent differential counts (%) should be interpreted in the context of the absolute cell counts (cells/UL). Performed By: #### 31882-7 ####WIL HOLBROOK ([id number])[facility] (ALEX)[address] [facility] [facility] [address]AXD (RBC) [Entitic mass]27.7 pg Vkilxa99.0-34.0[facility] HospitalComment on above: Order Comment: The previously reported component Neutrophils % is no longer being reported.The previously reported component Lymphocytes % is no longer being reported.The previously reported component Monocytes % is no longer being reported.The previously reported component Eosinophils % is no longer being reported.The previously reported component Basophils % is no longer being reported.The previously reported component Absolute Neutrophils is no longer being reported.The previously reported component Absolute Lymphocytes is no longer being reported.The previously reported component AbsoluteMonocytes is no longer being reported.The previously reported component Absolute Eosinophils is no longer being reported.The previously reported component Absolute Basophils is no longer being reported.Performed By: #### 41211-4 ####WIL HOLBROOK ([id number])[facility] (ALEX)[address] [place] [address] MCHC (RBC) [Mass/Vol]32.0 g/pYOcdpef10.0-36.0[facility] HospitalComment on above:Order Comment: The previously reported component Neutrophils % is no longer being reported.The previously reported component Lymphocytes % is no longer being reported.The previously reported component Monocytes % is no longer being reported.The previously reported component Eosinophils % is no longer being reported.The previously reported component Basophils % is no longer being reported.The previously reported component Absolute Neutrophils is no longer being reported.The previously reported co mponent Absolute Lymphocytes is no longer being reported.The previously reported component AbsoluteMonocytes is no longer being reported.The previously reported component Absolute Eosinophils is no longer being reported.The previously reported component Absolute Basophils is no longer being reported.Performed By: #### 65064-1 ####WIL HOLBROOK ([id number])[facility] (ALEX)[address] [place] [place] [address]BBH (RBC) [Entitic vol]87 fLNormal 80-100UnWayne HealthCare Main CampusComment on above:Order Comment: The previously reported component Neutrophils % is no longer being reported.The previously reported component Lymphocytes % is no longer being reported.The previously reported component Monocytes % is no longer being reported.The previously reported component Eosinophils % is no longer being reported.The previously reported component Basophils % is no longer being reported.The previously reported component Absolute Neutrophils is no longer being reported.The previously reported component Absolute Lymphocytes is no longer being reported.The previously reported component AbsoluteMonocytes is no longer being reported.The previously reported component Absolute Eosinophils is no longer being reported.The previously reported component Absolute Basophils is no longer being reported.Performed By: #### 82284-4 ####WIL HOLBROOK ([id number])[facility] (ALEX)[address] [place] [address] Nucleated RBC/100 WBC (Bld) [Ratio]0.0 /100 WBCsNormal0.0-0.0[facility] HospitalComment on above:Order Comment: The previously reported component Neutrophils % is no longer being reported.The previously reported component Lymphocytes % is no longer being reported.The previously reported component Monocytes % is no longer being reported.The previously reported component Eosinophils % is no longer being reported.The previously reported component Basophils % is no longer being reported.The previously reported component Absolute Neutrophils is no longer being reported.The previously reported component Absolute Lymphocytes is no longer being reported.The previously reported component AbsoluteMonocytes is no longer being reported.The previously reported component Absolute Eosinophils is no longer being reported.The previously reported component Absolute Basophils is no longer being reported.Performed By: #### 92017-5 ####WIL HOLBROOK ([id number])[facility] (ALEX)[address] [facility] [address]Avxswshwm (Bld) [#/Vol]57 x10*3/uKRrh286-566SfsehwgwazWayne HealthCare Main Campus Comment on above:Order Comment: The previously reported component Neutrophils % is no longer being reported.The previously reported component Lymphocytes % is no longer being reported.The previously reported component Monocytes % is no longer being reported.The previously reported component Eosinophils % is no longer being reported.The previously reported component Basophils % is no longer being reported.The previously reported component Absolute Neutrophils is no longer being reported.The previously reported component Absolute Lymphocytes is no longer being reported.The previously reported component AbsoluteMonocytes is no longer being reported.The previously reported component Absolute Eosinophils is no longer being reported.The previously reported component Absolute Basophils is no longer being reported.Performed By: #### 43608-1 ####WIL HOLBROOK ([id number])[facility] (ALEX)[address] [place] [address] RBC (Bld) [#/Vol]3.21 x10*6/uLLow4.00-5.20[facility] HospitalComment on above:Order Comment: The previously reported component Neutrophils % is no longer being reported.The previously reported component Lymphocytes % is no longer being reported.The previously reported component Monocytes % is no longer being reported.The previously reported component Eosinophils % is no longer being reported.The previously reported component Basophils % is no longer being reported.The previously reported component Absolute Neutrophils is no longer being reported.The previously reported co mponent Absolute Lymphocytes is no longer being reported.The previously reported component AbsoluteMonocytes is no longer being reported.The previously reported component Absolute Eosinophils is no longer being reported.The previously reported component Absolute Basophils is no longer being reported.Performed By: #### 13366-9 ####WIL HOLBROOK ([id number])[facility] (ALEX)[address] [facility] [place] [address]BZM (Bld) [#/Vol]2.7 x10*3/uLLow 4.4-11.3[facility] HospitalComment on above:Order Comment: The previously reported component Neutrophils % is no longer being reported.The previously reported component Lymphocytes % is no longer being reported.The previously reported component Monocytes % is no longer being reported.The previously reported component Eosinophils % is no longer being reported.The previously reported component Basophils % is no longer being reported.The previously reported component Absolute Neutrophils is no longer being reported.The previously reported component Absolute Lymphocytes is no longer being reported.The previously reported component AbsoluteMonocytes is no longer being reported.The previously reported component Absolute Eosinophils is no longer being reported.The previously reported component Absolute Basophils is no longer being reported.Performed By: #### 95744-5 ####WIL HOLBROOK ([id number])[facility] (ALEX)[address] [place] [address] Comprehensive metabolic 2000 panelon 52-11-5210Mfjuywd BCP dye [Mass/Vol]3.6 g/dLNormal3.4-5.0[facility] HospitalComment on above: Performed By: #### 74580-3 ####WIL HOLBROOK ([id number])[facility] (ALEX)[address] [place] [place], [place] [address]SKD [Catalytic activity/Vol]137 U/L Wgod71-418KxsyvlkdguGreene Memorial HospitalComment on above: Performed By: #### 57708-6 ####WIL HOLBROOK ([id number])[facility] (ALEX)[address] [place] [place], [place] [address]VZF With P-5'-P [Catalytic activity/Vol]16 U/LNormal7-45[facility] Comment on above:Result Comment: Patients treated with Sulfasalazine may generate falsely decreased results for ALT.Performed By: #### 78219-5 ####WIL HOLBROOK ([id number])[facility] (ALEX)[address] [place] [place], [place] [address]Uyxxd gap [Moles/Vol]13 mmol/DAfhfgs22-15NelgjvtjmnGreene Memorial HospitalComment on above:Performed By: #### 80118-8 ####WIL HOLBROOK ([id number])[facility] (ALEX)[address] [place] [address] AST With P-5'-P [Catalytic activity/Vol]27 U/LNormal9-39[facility] HospitalComment on above:Performed By: #### 14293-5 ####WIL HOLBROOK ([id number])[facility] (ALEX)[address] [place] [place], [place] [address]Qhvimkjom [Mass/Vol]1.2 mg/dLNormal0.0-1.2[facility] HospitalComment on above:Performed By: #### 22507-0 ####WIL HOLBROOK ([id number])[facility] (ALEX)[address] [place] [address] Calcium [Mass/Vol]8.1 mg/dLLow8.6-10.3[facility] HospitalComment on above:Performed By: #### 39047-7 ####WIL Villalobos'VANDANA ([id number])[facility] (ALEX)[address] [place], [place] [address]Naayufxc [Moles/Vol]101 mmol/FTwhrng86-526UtcoyrslyoGreene Memorial Hospital Comment on above:Performed By: #### 08759-4 ####WIL Villalobos'VANDANA ([id number])[facility] (ALEX)[address] [place] [place], [place] [address]FW5 [Moles/Vol]25 mmol/TSrumvt82-44ItdkusvdgzGreene Memorial Hospital Comment on above:Performed By: #### 42605-9 ####WIL Villalobos'VANDANA ([id number])[facility] (ALEX)[address] [place] [place], [place] [address]Lukginhopn [Mass/Vol]0.68 mg/dLNormal0.50-1.05[facility] Comment on above:Performed By: #### 13764-5 ####WIL Villalobos'VANDANA ([id number])[facility] (ALEX)[address] [place] [place], [place] [address]GEA/1.73 sq M.predicted MDRD (S/P/Bld) [Vol rate/Area]mL/min/{1.73_m2}Normal>60UnWayne HealthCare Main CampusComment on above:Result Comment: Calculations of estimated GFR are performed using the 2020 CKD-EPI Study Refit equation without the race variable for the IDMS-Traceable creatinine methods.https://jasn.asnjournals.org/content/early//ASN.3084045731 Performed By: #### 75055-3 ####WIL HOLBROOK ([id number])[facility] (ALEX)[address] [place] [place] [address]Resynaw [Mass/Vol]103 mg/dLHigh 74-99UnWayne HealthCare Main CampusComment on above:Performed By: #### 76720-4 ####WIL HOLBROOK ([id number])[facility] (ALEX)[address] [place] [place] [address]Fpzqvjwge [Moles/Vol]4.0 mmol/LNormal 3.5-5.3[facility] HospitalComment on above:Performed By: #### 45720-1 ####WIL HOLBROOK ([id number])[facility] (ALEX)[address] [place], [place] [address]Uufqtnq [Mass/Vol]5.4 g/dLLow6.4-8.2 [facility] HospitalComment on above:Performed By: #### 18777-7 ####WIL HOLBROOK ([id number])[facility] (ALEX)[address] [place] [place] [address]Slbnpj [Moles/Vol]135 mmol/BWjs390-517GnuwnlxajtGreene Memorial HospitalComment on above:Performed By: #### 83939-6 ####WIL HOLBROOK ([id number])[facility] (ALEX)[address] [place] [place], [place] [address]Wffk nitrogen [Mass/Vol]12 mg/dLNormal6-23[facility] HospitalComment on above:Performed By: #### 52014-9 ####WIL HOLBROOK ([id number])[facility] (ALEX)[address] [place] [place], [place] [address]Gmxgql differential performed Ql (Bld)on 05-24-2024 Basophils (Bld) [#/Vol]0.00 x10*3/uLNormal0.00-0.10[facility] HospitalComment on above:Performed By: #### 73290-7 ####WIL HOLBROOK ([id number])[facility] (ALEX)[address] [place] [address]Iesanfcxy/100 WBC (Bld)0.0 %Normal0.0-2.0[facility] HospitalComment on above:Performed By: #### 38369-5 ####WIL HOLBROOK ([id number])[facility] (ALEX)[address] [place] [address] Cells Counted Total (Bld) [#]100Samaritan HospitalComment on above:Performed By: #### 02428-8 ####WIL HOLBROOK ([id number])[facility] (ALEX)[address] [place] [place], [place] [address]Leuacumrjf LM Ql (Bld)[facility] for RehabilitationComment on above:Performed By: #### 94760-7 ####WIL HOLBROOK ([id number])[facility] (ALEX)[address] [place] [place] [address]Vsybg body LM Ql (Bld) [facility] HospitalComment on above: Performed By: #### 07138-1 ####WIL HOLBROOK ([id number])[facility] (ALEX)[address] [place] [place], [place] [address]Dwpehgqztpe (Bld) [#/Vol]0.08 x10*3/uLNormal0.00-0.70[facility] HospitalComment on above:Performed By: #### 42224-0 ####WIL HOLBROOK ([id number])[facility] (ALEX)[address] [place] [place], [place] [address]Ngjsfswbima/100 WBC (Bld)3.0 %Normal0.0-6.0[facility] HospitalComment on above: Performed By: #### 07392-1 ####WIL HOLBROOK ([id number])[facility] (ALEX)[address] [place], [place] [address]Gljiycrwphh (Bld) [#/Vol]0.70 x10*3/uLLow1.20-4.80[facility] HospitalComment on above:Performed By: #### 25469-3 ####WIL Vilallobos'VANDANA ([id number])[facility] (ALEX)[address] [place] [place] [address]Axkxarkpwkm/100 WBC (Bld) 26.0 %Fxjuuh80.0-44.0[facility] HospitalComment on above:Performed By: #### 09257-9 ####WIL Villalobos'VANDANA ([id number])[facility] (ALEX)[address] [place] [place] [address]Akqxusvhx (Bld) [#/Vol]0.38 x10*3/uLNormal0.10-1.00[facility] HospitalComment on above:Performed By: #### 63965-1 ####WIL Villalobos'VANDANA ([id number])[facility] (ALEX)[address] [place] [place] [address]Rvjapohqj/100 WBC (Bld)14.0 %Normal2.0-10.0[facility] HospitalComment on above: Performed By: #### 38425-2 ####WIL Villalobos'VANDANA ([id number])[facility] (ALEX)[address] [place] [place] [address]Jpahvqkcnq LM Ql (Bld)[facility], [facility] ShawComment on above:Performed By: #### 57320-5 ####WIL Villalobos'VANDANA ([id number])[facility] (ALEX)[address] [place] [place] [address]Cvwrwszzshlzh LM Ql (Bld)[facility], Edwin ShawComment on above:Performed By: #### 97020-8 ####WIL Villalobos'VANDANA ([id number])[facility] (ALEX)[address] [place] [place] [address]WXC morphology finding Nom (Bld)See [facility] Methodist HospitalComment on above:Performed By: #### 08680-3 ####WIL Villalobos'VANDANA ([id number])[facility] (ALEX)[address] [place] [place] [address]Cuxfznhnggdb LM Ql (Bld)[facility] for RehabilitationComment on above:Performed By: #### 97228-9 ####WIL Villalobos'VANDANA ([id number])[facility] (ALEX)[address] [place] [place], [place] [address]Unkhlgdmu neutrophils (Bld) [#/Vol]1.54 x10*3/uLNormal1.20-7.00 [facility] HospitalComment on above:Performed By: #### 30100-8 ####WIL Villalobos'VANDANA ([id number])[facility] (ALEX)[address] [place], [place] [address]Tdrzufonf neutrophils/100 WBC (Bld)57.0 %Normal 40.0-80.0[facility] HospitalComment on above:Result Comment: Percent differential counts (%) should be interpreted in the context of the absolute cell counts (cells/uL).Performed By: #### 30125-1 ####WIL Villalobos'VANDANA ([id number])[facility] (ALEX)[address] [place] [place], [place] [address]Bwhpywozsjcomy light chains.free panel (S)Ordered By: Ferny Fletcher on [id number] light chains.kappa [Mass/Vol]mg/dLLow0.33 - 1.94 mg/dL [facility] PrebleImmunoglobulin light chains.kappa/Immunoglobulin light chains.lambda (S) [Mass ratio][facility] PrebleComment on above:One or more analytes used in this calculation is outside of the analytical measurement range. Calculation cannot be performed. Immunoglobulin light chains.lambda [Mass/Vol]mg/dLLow0.57 - 2.63 mg/dLUnCentervilleInterpretation and review of laboratory resultsAbnormal [facility] PrebleUndetected antigen excess is a rare event but cannot be excluded. If these free light chain results do not agree with other clinical or laboratory findings, or if the sample is from a patient that has previously demonstrated antigen excess, the result must be checked by retesting at a higher sample dilution. Results should always be interpreted in conjunction with other laboratory tests and clinical evidence; any anomalies should be discussed with the testing laboratory.[facility] HospitalCB W Auto Differential panel (Bld)on 17-18-9960Ecljqlver (Bld) [#/Vol]0.01 x10*3/uLNormal0.00-0.10UnWayne HealthCare Main CampusComment on above:Result Comment: Automated WBC differential has been confirmed by manual smear.Performed By: #### 85539-1 ####WIL HOLBROOK ([id number])[facility] (ALEX)[address] [place] [address] Basophils/100 WBC (Bld)0.5 %Normal0.0-2.0UnWayne HealthCare Main CampusComment on above:Performed By: #### 50704-3 ####WIL HOLBROOK ([id number])[facility] (ALEX)[address] [place], [place] [address]Zlghimmhgim (Bld) [#/Vol]0.09 x10*3/uLNormal0.00-0.70UnWayne HealthCare Main CampusComment on above:Performed By: #### 06606-1 ####WIL HOLBROOK ([id number])[facility] (ALEX)[address] [place] [address] Eosinophils/100 WBC (Bld)4.1 %Normal0.0-6.0UnWayne HealthCare Main CampusComment on above:Performed By: #### 08269-0 ####WIL HOLBROOK ([id number])[facility] (ALEX)[address] [place] [address] Erythrocyte distribution width (RBC) [Ratio]22.5 %High11.5-14.5UnWayne HealthCare Main CampusComment on above:Performed By: #### 51369-9 ####WIL HOLBROOK ([id number])[facility] (ALEX)[address] [place] [address]Bdigiehjlt (Bld) [Volume fraction]27.6 %Low36.0-46.0 [facility] HospitalComment on above:Performed By: #### 03373-3 ####WIL HOLBROOK ([id number])[facility] (ALEX)[address] [place], [place] [address]Aqbqhwkqkb (Bld) [Mass/Vol]8.7 g/dLLow12.0-16.0 [facility] HospitalComment on above:Performed By: #### 55215-9 ####WIL HOLBROOK ([id number])[facility] (ALEX)[address] [place] [address]Olhbcbog granulocytes (Bld) [#/Vol]0.01 x10*3/uL Normal0.00-0.70UnWayne HealthCare Main CampusComment on above: Performed By: #### 56571-6 ####WIL HOLBROOK ([id number])[facility] (ALEX)[address] [place] [place], [place] [address]Qhmvaazp granulocytes/100 WBC (Bld) 0.5 %Normal0.0-0.9UnWayne HealthCare Main CampusComment on above: Result Comment: Immature Granulocyte Count (IG) includes promyelocytes, myelocytes and metamyelocytes but does not include bands. Percent differential counts (%) should be interpreted in the context of the absolute cell counts (cells/UL).Performed By: #### 27026-7 ####WIL Villalobos'VANDANA ([id number])[facility] (ALEX)[address] [place] [place], [place] [address]Qnlqbbktoch (Bld) [#/Vol]0.70 x10*3/uLLow1.20-4.80[facility] Comment on above:Performed By: #### 43902-3 ####WIL Villalobos'VANDANA ([id number])[facility] (ALEX)[address] [place] [address] Lymphocytes/100 WBC (Bld)31.7 %Kkrmet46.0-44.0[facility] HospitalComment on above:Performed By: #### 06403-7 ####WIL Villalobos'VANDANA ([id number])[facility] (ALEX)[address] [place] [address] MCH (RBC) [Entitic mass]27.5 yiXnrnug80.0-34.0UnWayne HealthCare Main CampusComment on above:Performed By: #### 74393-8 ####WIL Villalobos'VANDANA ([id number])[facility] (ALEX)[address] [place] [address] MCHC (RBC) [Mass/Vol]31.5 g/dLLow32.0-36.0UnWayne HealthCare Main CampusComment on above:Performed By: #### 65324-2 ####WIL Villalobos'VANDANA ([id number])[facility] (ALEX)[address] [place] [address] MCV (RBC) [Entitic vol]87 nTKhdleb80-269MakexylqctGreene Memorial HospitalComment on above:Performed By: #### 17297-2 ####WIL Villalobos'VANDANA ([id number])[facility] (ALEX)[address] [place], [place] [address]Lveyciqvp (Bld) [#/Vol]0.38 x10*3/uLNormal0.10-1.00[facility] HospitalComment on above:Performed By: #### 55195-2 ####WIL HOLBROOK ([id number])[facility] (ALEX)[address] [place] [address] Monocytes/100 WBC (Bld)17.2 %Normal2.0-10.0UnWayne HealthCare Main CampusComment on above:Performed By: #### 19200-1 ####WIL Villalobos'VANDANA ([id number])[facility] (ALEX)[address] [place] [address] Neutrophils (Bld) [#/Vol]1.02 x10*3/uLLow1.20-7.70UnWayne HealthCare Main CampusComment on above:Result Comment: Percent differential counts (%) should be interpreted in the context of the absolute cell counts (cells/uL). Performed By: #### 13817-3 ####WIL Villalobos'VANDANA ([id number])[facility] (ALEX)[address] [place], [place] [address]Fbwbqypvlng/100 WBC (Bld)46.0 % Xdwuqd04.0-80.0UnWayne HealthCare Main CampusComment on above: Performed By: #### 16379-4 ####WIL HOLBROOK ([id number])[facility] (ALEX)[address] [place], [place] [address]Mxvglrwix RBC/100 WBC (Bld) [Ratio] 0.0 /100 WBCsNormal0.0-0.0Greene Memorial HospitalComment on above:Performed By: #### 50496-2 ####WIL Villalobos'VANDANA ([id number])[facility] (ALEX)[address] [place], [place] [address]Capmrplio (Bld) [#/Vol]59 x10*3/lZHby134-290CknpzencjrWayne HealthCare Main CampusComment on above:Performed By: #### 35593-4 ####WIL HOLBROOK ([id number])[facility] (ALEX)[address] [place], [place] [address]FFI (Bld) [#/Vol]3.16 x10*6/uLLow4.00-5.20UnWayne HealthCare Main CampusComment on above:Performed By: #### 75671-2 ####WIL HOLBROOK ([id number])[facility] (ALEX)[address] [facility] [place] [address]KUH (Bld) [#/Vol]2.2 x10*3/uLLow4.4-11.3UnWayne HealthCare Main CampusComment on above:Performed By: #### 88488-1 ####WIL HOLBROOK ([id number])[facility] (ALEX)[address] [place], [place] [address]Mjucabijdqwjz metabolic 2000 panelon 41-70-2120Whqzeoo BCP dye [Mass/Vol]3.6 g/dL3.4 - 5.0 g/dLUnCentervilleALP [Catalytic activity/Vol]158 U/LHigh33 - 136 U/L [facility]bleALT With P-5'-P [Catalytic activity/Vol]16 U/L7 - 45 U/[facility] HospitalComment on above:Patients treated with Sulfasalazine may generate falsely decreased results for ALT.Anion gap [Moles/Vol]11 mmol/L10 - 20 mmol/[facility] HospitalAST With P-5'-P [Catalytic activity/Vol]26 U/L9 - 39 U/[facility] Bilirubin [Mass/Vol]1.0 mg/dL0.0 - 1.2 mg/dLKettering Health Preble Calcium [Mass/Vol]8.7 mg/dL8.6 - 10.3 mg/dLUnCenterville Chloride [Moles/Vol]105 mmol/L98 - 107 mmol/[facility] CO2 [Moles/Vol]28 mmol/L21 - 32 mmol/[facility] Creatinine [Mass/Vol]0.66 mg/dL0.50 - 1.05 mg/dLUnCentervilleeGFR- PINFUniMount St. Mary HospitalComment on above: Calculations of estimated GFR are performed using the 2020 CKD-EPI Study Refit equation without therace variable for the IDMS-Traceable creatinine methods. https://jasn.asnjournals.org/content//ASN.1563445848 Glucose [Mass/Vol]86 mg/dL74 - 99 mg/dLUnCenterville Interpretation and review of laboratory resultsAbnoalUMercy Health St. Joseph Warren HospitalPotassium [Moles/Vol]4.1 mmol/L3.5 - 5.3 mmol/[facility] HospitalProtein [Mass/Vol]5.4 g/dLLow6.4 - 8.2 g/dLUnCentervilleSodium [Moles/Vol]140 mmol/L136 - 145 mmol/[facility] HospitalUrea nitrogen [Mass/Vol]15 mg/dL6 - 23 mg/dLKettering Health PrebleAlbumin BCP dye [Mass/Vol]3.6 g/dLNormal3.4-5.0UnWayne HealthCare Main CampusComment on above:Performed By: #### 51619-4 ####WIL HOLBROOK ([id number])[facility] (ALEX)[address] [place], [place] [address]APL [Catalytic activity/Vol]158 U/XOxea02-697PamudaxeucWayne HealthCare Main CampusComment on above:Performed By: #### 71854-8 ####WIL HOLBROOK ([id number])[facility] (ALEX)[address] [facility], [place] [address]RYK With P-5'-P [Catalytic activity/Vol]16 U/LNormal7-45UnWayne HealthCare Main CampusComment on above:Result Comment: Patients treated with Sulfasalazine may generate falsely decreased results for ALT. Performed By: #### 62835-9 ####WIL HOLBROOK ([id number])[facility] (ALEX)[address] [place], [place] [address]Cyevb gap [Moles/Vol]11 mmol/L Gdtezd78-17TonkcgrklfGreene Memorial HospitalComment on above: Performed By: #### 14269-3 ####WIL Villalobos'VANDANA ([id number])[facility] (ALEX)[address] [place], [place] [address]MMT With P-5'-P [Catalytic activity/Vol]26 U/LNormal9-39[facility] Comment on above:Performed By: #### 87747-6 ####WIL Villalobos'VANDANA ([id number])[facility] (ALEX)[address] [place], [place] [address]Dptwxojho [Mass/Vol]1.0 mg/dLNormal0.0-1.2[facility] Comment on above:Performed By: #### 65875-9 ####WIL Villalobos'VANDANA ([id number])[facility] (ALEX)[address] [place], [place] [address]Mtbtigv [Mass/Vol]8.7 mg/dLNormal8.6-10.3[facility] Comment on above:Performed By: #### 15190-9 ####WIL Villalobos'VANDANA ([id number])[facility] (ALEX)[address] [place], [place] [address]Qwkitvgy [Moles/Vol]105 mmol/WNmutnv50-287KwnyqnrxcbGreene Memorial Hospital Comment on above:Performed By: #### 37082-0 ####WIL Villalobos'VANDANA ([id number])[facility] (ALEX)[address] [place], [place] [address]OH2 [Moles/Vol]28 mmol/BSeskak33-74WjrthepfwcGreene Memorial Hospital Comment on above:Performed By: #### 23124-9 ####WIL Villalobos'VANDANA ([id number])[facility] (ALEX)[address] [place], [place] [address]Vtpwgtgjan [Mass/Vol]0.66 mg/dLNormal0.50-1.05[facility] Comment on above:Performed By: #### 09019-9 ####WIL HOLBROOK ([id number])[facility] (ALEX)[address] [place], [place] [address]DBT/1.73 sq M.predicted MDRD (S/P/Bld) [Vol rate/Area]mL/min/{1.73_m2}Normal>60UnWayne HealthCare Main CampusComment on above:Result Comment: Calculations of estimated GFR are performed using the 2020 CKD-EPI Study Refit equation without the race variable for the IDMS-Traceable creatinine methods.https://jasn.asnjournals.org/content/early//ASN.1351060210 Performed By: #### 06427-3 ####WIL Villalobos'VANDANA ([id number])[facility] (ALEX)[address] [place], [place] [address]Sqdxlol [Mass/Vol]86 mg/dLNormal 74-99UnWayne HealthCare Main CampusComment on above:Performed By: #### 02601-8 ####WIL HOLBROOK ([id number])[facility] (ALEX)[address] [place], [place] [address]Kdljtxecc [Moles/Vol]4.1 mmol/LNormal 3.5-5.3UnWayne HealthCare Main CampusComment on above:Performed By: #### 92612-2 ####WIL Villalobos'VANDANA ([id number])[facility] (ALEX)[address] [place], [place] [address]Fpitdhi [Mass/Vol]5.4 g/dLLow6.4-8.2 [facility] HospitalComment on above:Performed By: #### 98637-8 ####WIL HOLBROOK ([id number])[facility] (ALEX)[address] [place], [place] [address]Qsmlgv [Moles/Vol]140 mmol/XAdyxhx698-854ZeoqyfcwfvGreene Memorial HospitalComment on above:Performed By: #### 37508-7 ####WIL HOLBROOK ([id number])[facility] (ALEX)[address] [place], [place] [address]Spds nitrogen [Mass/Vol]15 mg/dLNormal6-23Gre[facility] HospitalComment on above:Performed By: #### 59320-8 ####WIL HOLBROOK ([id number])[facility] (ALEX)[address] [facility] [address]SRCUIOYQJLUHCJZ (IGG, IGA, IGM)on 34-98-9286NsJ [Mass/Vol] mg/aGEbt90-522JpocajtiuzGreene Memorial HospitalComment on above: Order Comment: MONOCLONAL PROTEINS MAY CAUSE FALSELY LOWRESULTS IN THIS ASSAY. SERUM PROTEINELECTROPHORESIS SHOULD BE DONE THEFIRST TEST TO EVALUATE MONOCLONAL GAMMOPATHY.Performed By: #### IGS ####ARNULFO Roger ([id number])[facility] ([facility])[address] [place] [address]FjQ [Mass/Vol]398 mg/zIUoy988-0999ArtnxyumlmGreene Memorial HospitalComment on above: Order Comment: MONOCLONAL PROTEINS MAY CAUSE FALSELY LOWRESULTS IN THIS ASSAY. SERUM PROTEINELECTROPHORESIS SHOULD BE DONE THEFIRST TEST TO EVALUATE MONOCLONAL GAMMOPATHY.Performed By: #### IGS ####ARNULFO GARCIA L ([id number])[facility] ([facility])[address] [facility], [place] [address]TbM [Mass/Vol]mg/dL Llt23-034RtxgwcuvofGreene Memorial HospitalComment on above:Order Comment: MONOCLONAL PROTEINS MAY CAUSE FALSELY LOWRESULTS IN THIS ASSAY. SERUM PROTEINELECTROPHORESIS SHOULD BE DONE THEFIRST TEST TO EVALUATE MONOCLONAL GAMMOPATHY.Performed By: #### IGS ####ARNULFO GONSALEZMOTZYUMIKO L ([id number])[facility] ([facility])[address] [place], [place] [address]Jnmylnmtphstpv light chains.free panel (S)on 19-76-6340Cytmgockooazwl light chains.kappa [Mass/Vol]<0.08Low 0.33-1.94Gre[facility] Memorial HospitalComment on above:Order Comment: Undetected antigen excess is a rare event but cannot beexcluded. If these free lightchain results do not agreewith other clinical or laboratory findings, or if thesample is from a patient that has previously demonstratedantigen excess, the result must be checked by retestingat a higher sample dilution. Results should always beinterpreted in conjunction with other laboratory testsand clinical evidence; any anomalies should be discussedwith the testing laboratory.Performed By: #### 15514-2 ####ARNULFO Roger ([id number])[facility] ([facility])[address] [place] [address]Hefkkwtxqfviyl light chains.kappa/Immunoglobulin light chains.lambda (S) [Mass ratio]Normal [facility] HospitalComment on above:Order Comment: Undetected antigen excess is a rare event but cannot beexcluded. If these free lightchain results do not agreewith other clinical or laboratory findings, or if thesample is from a patient that has previously demonstratedantigen excess, the result must be checked by retestingat a higher sample dilution. Results should always beinterpreted in conjunction with other laboratory testsand clinical evidence; any anomalies should be discussedwith the testing laboratory.Result Comment: One or more analytes used in this calculationis outside of the analytical measurement range.Calculation cannot be performed.Performed By: #### 35312-3 ####ARNULFO Roger ([id number])[facility] ([facility])[address] [place] [address]Kozqmtkzbwkylp light chains.lambda [Mass/Vol]<0.17Low 0.57-2.63Gre[facility] Memorial HospitalComment on above:Order Comment: Undetected antigen excess is a rare event but cannot beexcluded. If these free lightchain results do not agreewith other clinical or laboratory findings, or if thesample is from a patient that has previously demonstratedantigen excess, the result must be checked by retestingat a higher sample dilution. Results should always beinterpreted in conjunction with other laboratory testsand clinical evidence; any anomalies should be discussedwith the testing laboratory.Performed By: #### 70076-7 ####ARNULFO Roger ([id number])[facility] ([facility])[address] [place], [place] [address]Wpgdddrukhhxgms (IgG, IgA, IgM)Ordered By: Soraida Elizalde on 84-74-9986DjV [Mass/Vol]mg/dLLow70 - 400 mg/dLUnCentervilleIgG [Mass/Vol]398 mg/mHFna496 - 1600 mg/dLKettering Health PrebleIgM [Mass/Vol]mg/dLLow40 - 230 mg/dL [facility] PrebleInterpretation and review of laboratory results AbnormalUnCentervilleMONOCLONAL PROTEINS MAY CAUSE FALSELY LOW RESULTS IN THIS ASSAY. SERUM PROTEIN ELECTROPHORESIS SHOULD BE DONE THE FIRST TEST TO EVALUATE MONOCLONAL GAMMOPATHY.[facility] CenterLD Lactate to pyruvate reaction [Catalytic activity/Vol]on 49-12-0121Cqtqdiwieccezs and review of laboratory resultsNormal [facility] PrebleLactate dehydrogenaseon 93-64-6536ODK Lactate to pyruvate reaction [Catalytic activity/Vol]208 U/L84 - 246 U/LUnMansfield Hospital Lactate to pyruvate reaction [Catalytic activity/Vol] 208 U/YZavaqa07-515ZfafbsstrmGreene Memorial HospitalComment on above:Performed By: #### 98355-1 ####WIL HOLBROOK ([id number])[facility] (ALEX)[address] [place], [place] [address]Op Panel Informationon 95-63-1994RmxpjrqagtKettering Health PrebleProteinon 91-81-5543Rxdlvtq [Mass/Vol]5.2 g/dLLow6.4-8.2UnWayne HealthCare Main CampusComment on above:Performed By: #### 2885-2 ####ARNULFO Roger ([id number])[facility] ([facility])[address] [place], [place] [address]JMJ shape Nom (Bld)on 05-10-2024 Dacrocytes LM Ql (Bld)[facility] Comment on above:Performed By: #### 70932-7 ####WIL Villalobos'VANDANA ([id number])[facility] (ALEX)[address] [place], [place] [address]Gjjtx platelets LM Ql (Bld)[facility] Comment on above:Performed By: #### 73753-5 ####WIL Villalobos'VANDANA ([id number])[facility] (ALEX)[address] [place], [place] [address]Ppixaqqylum Ql (Bld)[facility], Edwin ShawComment on above: Performed By: #### 56297-3 ####WIL Villalobos'VANDANA ([id number])[facility] (ALEX)[address] [place], [place] [address]Gnlnvrdxtl LM Ql (Bld)[facility], Edwin ShawComment on above:Performed By: #### 33730-5 ####WIL Villalobos'VANDANA ([id number])[facility] (ALEX)[address] [place], [place] [address]GIE morphology finding Nom (Bld)See [facility] HamiltonComment on above:Performed By: #### 10390-6 ####WIL Villalobos'VANDANA ([id number])[facility] (ALEX)[address] [place], [place] [address]Pdomlfhkwbwv LM Ql (Bld)[facility] for RehabilitationComment on above:Performed By: #### 37515-0 ####WIL Villalobos'VANDANA ([id number])[facility] (ALEX)[address] [place], [place] [address]FFJEI PROTEIN ELECTROPHORESIS + IMMUNOFIXATIONon 48-56-2639Qpssyow [Mass/Vol]3.2 g/dLLow3.4-5.0[facility] HospitalComment on above:Performed By: #### IFE3 ####ARNULFO Roger ([id number])[facility] ([facility])[address] [facility], [place] [address]QSDKJ 1 GLOBULIN0.4 g/dLNormal0.2-0.6[facility] HospitalComment on above: Performed By: #### IFE3 ####ARNULFO Roger ([id number])[facility] ([facility])[address] [facility], [place] [address]MDBVO 2 GLOBULIN0.6 g/dLNormal0.4-1.1UnWayne HealthCare Main CampusComment on above:Performed By: #### IFE3 ####ARNULFO Roger ([id number])[facility] ([facility])[address] [place] [address]JIXN GLOBULIN0.6 g/dLNormal0.5-1.2UnWayne HealthCare Main CampusComment on above:Performed By: #### IFE3 ####ARNULFO Roger ([id number])[facility] ([facility])[address] [place] [address]XLBOX GLOBULIN0.3 g/dLLow0.5-1.4UnWayne HealthCare Main CampusComment on above: Performed By: #### IFE3 ####ARNULFO Roger ([id number])[facility] ([facility])[address] [place] [address]TPPXAYGVKURUMI COMMENTDetectedSamaritan HospitalComment on above:Performed By: #### IFE3 ####ARNULFO Roger ([id number])[facility] ([facility])[address] [place] [address]ZJQA REVIEW - SERUM IMMUNOFIXATIONSEE COMMENTSamaritan HospitalComment on above:Result Comment: Reviewed and approved by TIFFANIE TOWNSEND on 05/12/24 at 8:10 PM.Performed By: #### IFE3 ####ARNULFO Roger ([id number])[facility] ([facility])[address] [place] [address]YXWA REVIEW-SERUM PROTEIN ELECTROPHORESISSEE COMMENTNoCleveland Clinic Lutheran HospitalComment on above:Result Comment: Reviewed and approved by TIFFANIE TOWNSEND on 05/12/24 at 8:10 PM.Performed By: #### IFE3 ####ARNULFO Roger ([id number])[facility] ([facility])[address] [place], [place] [address]VKPQRVN ELECTROPHORESIS COMMENTSEE COMMENTSamaritan HospitalComment on above:Result Comment: Hypoalbuminemia. Decrease in polyclonal gamma globulins.Performed By: #### IFE3 ####ARNULFO Roger ([id number])[facility] ([facility])[address] [place] [address]Wnbwlra aminotransferase [Enzymatic activity/volume] in Serum or PlasmaOrdered By: Hortensia Clinton on 93-22-0165TVF [Catalytic activity/Vol]12 U/L7-52Sal[facility] City HospitalAlbumin [Mass/volume] in Serum or Plasma by Bromocresol green (BCG) dye binding methoOrdered By: Hortensia Clinton on 66-63-7825Zckwlwj BCG dye [Mass/Vol] 3.9 g/dL3.5-5.7FPremier HealthAlkaline phosphatase [Enzymatic activity/volume] in Serum or PlasmaOrdered By: Hortensia Clinton on 13-02-2495UGY [Catalytic activity/Vol]151 U/QUldc44-444ZballkcznSalem City Hospital Anisocytosis LM Ql (Bld)Ordered By: Hortensia Clinton on 38-49-6230Mxhnovtykbbk Ql (Bld)ModerateSalem City HospitalAspartate aminotransferase [Enzymatic activity/volume] in Serum or PlasmaOrdered By: Hortensia Clinton on 04-70-0519SUK [Catalytic activity/Vol]30 U/U08-03RuxslbgsuSalem City HospitalBasophils Auto (Bld) [#/Vol]Ordered By: Hortensia Clinton on 04-19-2024 Basophils (Bld) [#/Vol]0.0 10*3/uL0.0-0.2FPremier Health Basophils/100 WBC Auto (Bld)Ordered By: Hortensia Clinton on 61-50-9869Qcmcdutrz/100 WBC (Bld)0.2 %.[facility] City HospitalBilirubin.direct [Mass/volume] in Serum or PlasmaOrdered By: Hortensia Clinton on 50-62-6942Hjyebumgu.direct [Mass/Vol]0.70 mg/dLHigh0.03-0.18FPremier Health Bilirubin.total [Mass/volume] in Serum or PlasmaOrdered By: Hortensia Clinton on 22-28-8205Ocxycwfbn [Mass/Vol]2.1 mg/dLHigh0.3-1.0[facility] City HospitalComment on above:Samples from patients who have taken Naproxen have shown spurious elevation in Total Bilirubin levels. A metabolite of Naproxen, O- desmethylnaproxen, has been shown to interfere with the Victor M method for measuring Total Bilirubin.Calcium [Mass/volume] in Serum or PlasmaOrdered By: Hortensia Clinton on 61-75-6184Adbkihh [Mass/Vol]8.8 mg/dL8.6-10.3FPremier HealthCarbon dioxide, total [Moles/volume] in Serum or Plasma Ordered By: Hortensia Clinton on 89-30-6198BP8 [Moles/Vol]28.7 mmol/L21.0-31.0 [facility] HospitalChloride [Moles/volume] in Serum or Plasma Ordered By: Hortensia Clinton on 29-30-8194Oyllxzlp [Moles/Vol]105 mmol/L98-107 [facility] HospitalCreatinine [Mass/volume] in Serum or Plasma Ordered By: Hortensia Clinton on 54-03-7686Hclawqvhxb [Mass/Vol]0.51 mg/dLLow 0.60-1.20[facility] HospitalEosinophils Auto (Bld) [#/Vol]Ordered By: Hortensia Clinton on 44-85-6559Vgmaalfovdu (Bld) [#/Vol]0.1 10*3/uL0.0-0.45 [facility] HospitalEosinophils/100 WBC Auto (Bld)Ordered By: Hortensia Clinton on 60-83-7584Qgquijdhbru/100 WBC (Bld)4.1 %.[facility] HospitalErythrocyte distribution width Auto (RBC) [Ratio]Ordered By: Hortensia Clinton on 26-82-1198Kwjxqtfgiaw distribution width (RBC) [Ratio]22.1 %High11.9-15.3 [facility] HospitalGlobulin Calc (S) [Mass/Vol]Ordered By: Hortensia Clinton on 57-46-6282Bkciqvxq (S) [Mass/Vol]1.5 g/dLSalem City HospitalGlucose [Mass/volume] in Serum or PlasmaOrdered By: Hortensia Clinton on 17-90-8511Norzlkz [Mass/Vol]118 mg/wKPwnm38-106WblgqqbijSalem City Hospital Comment on above:ADA recommended reference rangeRandom Glucose Reference Range is dependent on time and content of last meal. Glucose of more than 200 mg/dL in a nonstressed, ambulatory subject supports the diagnosisof Diabetes Mellitus. Hematocrit Auto (Bld) [Volume fraction]Ordered By: Hortensia Clinton on 04-19-2024 Hematocrit (Bld) [Volume fraction]26.9 %Low34.0-46.4FPremier HealthHemoglobin [Mass/volume] in BloodOrdered By: Hortensia Clinton on 04-19-2024 Hemoglobin (Bld) [Mass/Vol]8.8 g/dLLow11.8-15.4FPremier Health Hypochromia LM Ql (Bld)Ordered By: Hortensia Clinton on 12-89-0936Jbsfjvsryyd Ql (Bld)ModerateSalem City HospitalLeukocytes [#/volume] corrected for nucleated erythrocytes in Blood by Automated counOrdered By: Hortensia Clinton on 30-32-7861EIU corrected for nucl RBC Auto (Bld) [#/Vol]3.4 10*3/uLLow3.8-11.6 [facility] HospitalLymphocytes Auto (Bld) [#/Vol]Ordered By: Hortensia Clinton on 17-35-6092Xmgyuufortb (Bld) [#/Vol]0.6 10*3/uLLow1.00-4.8[facility] HospitalLymphocytes/100 WBC Auto (Bld)Ordered By: Hortensia Clinton on 07-94-2030Rmmbrhhbiam/100 WBC (Bld)18.3 %.[facility] MCH Auto (RBC) [Entitic mass]Ordered By: Hortensia Clinton on 75-12-9987CYC (RBC) [Entitic mass]26.1 pg24.7-34.3FPremier HealthMCHC Auto (RBC) [Mass/Vol]Ordered By: Hortensia Clinton on 94-42-9777XYTR (RBC) [Mass/Vol]32.8 g/dL 32.0-35.0Sal[facility] HospitalMCV Auto (RBC) [Entitic vol]Ordered By: Hortensia Clinton on 15-97-8820JHA (RBC) [Entitic vol]79.6 aQIoq36-272ZsgyxudnfSalem City HospitalMagnesium [Mass/volume] in Serum or PlasmaOrdered By: Hortensia Clinton on 29-28-1778Krkoiyunt [Mass/Vol]1.8 mg/dLLow1.9-2.7FPremier HealthMicrocytes LM Ql (Bld)Ordered By: Hortensia Clinton on 06-31-3273Jxltsaacem Ql (Bld)SlightSalem City HospitalMonocytes Auto (Bld) [#/Vol]Ordered By: Hortensia Clinton on 83-96-8304Gibnujswt (Bld) [#/Vol] 0.5 10*3/uL0.0-0.8[facility] HospitalMonocytes/100 WBC Auto (Bld) Ordered By: Hortensia Clinton on 94-40-6256Nrokwqktb/100 WBC (Bld)15.9 %.[facility] HospitalNeutrophils Auto (Bld) [#/Vol]Ordered By: Hortensia Clinton on 33-49-1113Augscpvnuxj (Bld) [#/Vol]2.1 10*3/uL1.8-7.7FPremier HealthNeutrophils/100 WBC Auto (Bld)Ordered By: Hortensia Clinton on 17-18-7692Colwrokqoul/100 WBC (Bld)61.5 %.[facility] HospitalNo Panel InformationOrdered By: Hortensia Clinton on 96-70-2744Qspdpnjgu GFR (CKD-EPI)> 60.0 mL/MinSalem City HospitalPharmacy Creatinine Clearance (Chem 70.22[facility]> 60.0 mL/MinSalem City Hospital70.22[facility] HospitalNucleated erythrocytes [Presence] in Blood by Automated countOrdered By: Hotrensia Clinton on 97-38-7283Syabffghi RBC Auto Ql (Bld)0.1 /100{WBC}0-0.5FPremier HealthOvalocyte detectionOrdered By: Hortensia Clinton on 18-62-2634Aszvgflice LM Ql (Bld)Slight [facility] HospitalPhosphate [Mass/volume] in Serum or Plasma Ordered By: Hortensia Clinton on 74-10-9367Lfuxtzbrw [Mass/Vol]2.6 mg/dL2.5-4.5 [facility] HospitalPlatelet adequacy [Presence] in Blood by Light microscopyOrdered By: Hortensia Clinton on 67-27-3845Onkstmldd LM Ql (Bld)Decreased NormalSalem City HospitalPlatelet mean volume Auto (Bld) [Entitic vol]Ordered By: Hortensia Clinton on 61-93-1342Tjpoyvrn mean volume (Bld) [Entitic vol]8.9 fL6.3-10.7FPremier HealthPlatelet morphology finding [Identifier] in BloodOrdered By: Hortensia Clinton on 69-09-9717Jcftgahc morphology finding Nom (Bld)NormalNormalSalem City HospitalPlatelets Auto (Bld) [#/Vol]Ordered By: Hortensia Clinton on 47-87-9216Lkmjemowj (Bld) [#/Vol]42 10*3/cESld335-384TjlrcfigjSalem City HospitalPoikilocytosis [Presence] in Blood by Light microscopyOrdered By: Hortensia Clinton on 99-89-2070Nddppzkwgrxhcb LM Ql (Bld)SlightSalem City HospitalPolychromasia [Presence] in Blood by Light microscopyOrdered By: Hortensia Clinton on 55-24-5662Ogwffhjrtkhab LM Ql (Bld)SlightSalem City HospitalPotassium [Moles/volume] in Serum or PlasmaOrdered By: Hortensia Clinton on 49-60-2447Cnmpsdrvn [Moles/Vol]3.3 mmol/LLow3.5-5.1FPremier HealthProtein [Mass/volume] in Serum or PlasmaOrdered By: Hortensia Clinton on 23-91-9131Yjmkyli [Mass/Vol]5.4 g/dLLow 6.4-8.9Salem City HospitalComment on above:Delta: 7.0 on 04/18/24-06RBC Auto (Bld) [#/Vol]Ordered By: Hortensia Clinton on 23-29-2220SGO (Bld) [#/Vol]3.38 10*6/uLLow3.60-5.00Salem City HospitalRBC morphologyOrdered By: Hortensia Clinton on 04-39-9496JTQ morphology finding Nom (Bld)N/AFSouthview Medical Centererum or plasma albumin/globulin mass ratioOrdered By: Hortensia Clinton on 34-47-1908Ndkihch/Globulin [Mass ratio]2.6 {ratio}[facility] Instituteerum or plasma anion gap determination Ordered By: Hortensia Clinton on 40-08-9349Xnjts gap [Moles/Vol]9.6 mmol/L6.0-15.0 [facility] Instituteerum or plasma non-glucuronidated bilirubin measurement (mass/volume)Ordered By: Hortensia Clinton on 04-19-2024 Bilirubin.indirect [Mass/Vol]1.4 mg/dLRiverview Health Instituteodium [Moles/volume] in Serum or PlasmaOrdered By: Hortensia Clinton on 07-37-2225Yaffqv [Moles/Vol]140 mmol/W861-215CvfggmbqbSalem City HospitalUrea nitrogen [Mass/volume] in Serum or PlasmaOrdered By: Hortensia Clinton on 04-51-5669Lwwq nitrogen [Mass/Vol]18 mg/dL7-25Salem City HospitalWBC Auto (Bld) [#/Vol]Ordered By: Hortensia Clinton on 13-78-0274OAN (Bld) [#/Vol]3.4 10*3/uLLow 3.8-11.6FPremier HealthEosinophils/100 WBC Manual cnt (Bld) Ordered By: Hortensia Clinton on 26-63-1700Dpzcfmhtric/100 WBC (Bld)2 %1-3FPremier HealthHemetropolitan state hospital B virus surface Ag [Presence] in Serum or Plasma by ImmunoassayOrdered By: Hortensia Clinton on 66-60-3219YFF surface Ag IA Ql NegativeNegativeDetwiler Memorial Hospital C virus IgG Ab [Presence] in Serum or Plasma by ImmunoassayOrdered By: Hortensia Clinton on 73-31-4471YCX IgG IA QlNon-ReactiveNon ReactiveSalem City Hospital Hepatitis C virus RNA [Units/volume] (viral load) in Serum or Plasma by JOHANN with probOrdered By: Hortensia Clinton on 03-33-5735MTK RNA JOHANN+probe QnN/[facility] C virus RNA [log units/volume] (viral load) in Serum or Plasma by JOHANN withOrdered By: Hortensia Clinton on 14-70-9096GGJ RNA JOHANN+probe [Log units/Vol]N/[facility] CenterLymphocytes/100 WBC Manual cnt (Bld)Ordered By: Hortensia Clinton on 49-12-8625Xgqeyqoivnx/100 WBC (Bld) 13 %Hbj84-25LmzlkvwgrSalem City HospitalMonocytes/100 WBC Manual cnt (Bld) Ordered By: Hortnesia Clinton on 36-53-8911Svrgehcyi/100 WBC (Bld)20 %High2-11 [facility] HospitalNo Panel InformationOrdered By: Hortensia Clinton on 08-54-7959Gpcwwvqkx A IgM AntibodyNegativeNegativeDetwiler Memorial Hospital B Core IgM AntibodyNegativeNegativeDetwiler Memorial Hospital C InterpretationSee comment.[facility] Comment on above:Not infected with HCV unless early or acute infection issuspected (which may be delayed in an immunocompromisedindividual), or other evidence exists to indicate HCVinfection.Performed at: [address] [place], [place] [id number] Director: Lang Knight PhD, Phone: [phone]z Regional Medical CenterSee comment.[facility] Health Instituteegmented neutrophils/100 WBC Manual cnt (Bld)Ordered By: Hortensia Clinton on 44-35-1118Ogngszbav neutrophils/100 WBC (Bld)65 %50-70[facility] HospitalTeardrop cell detectionOrdered By: Hortensia Clinton on 15-35-7723Bwvjeawlyb LM Ql (Bld)[facility] CenterRed blood cell stomatocyte detectionOrdered By: Modesto Aquino on 99-17-3343Kqeilbxnrzty LM Ql (Bld)[facility] CenterActivated partial thromboplastin time (aPTT) in platelet poor plasma by coagulation aOrdered By: Vicente Linton on 05-66-4013xQJL Coag (PPP) [Time]30.6 s25.1-36.5FPremier HealthComment on above:A hematocrit value greater than 55% may lead to inaccurate results in coagulation testing. Patientshaving hematocrit values >55% require a special collection tube for coagulation studies. Please c ontact the laboratory at [phone] for redraw instructions.Dohle bodies detectionOrdered By: Modesto Aquino on 97-12-1256Dldpn body LM Ql (Bld)Moderate [facility] HospitalINR in Platelet poor plasma by Coagulation assayOrdered By: Vicente Linton on 91-87-6722WNH Coag (PPP) [Relative time]1.4 {INR}[facility] HospitalComment on above:INR Therapeutic Range A) Pre- and Peroperative OAT started two weeks before surgery. NOT HIP SURGERY: 1.5 - 2.5 HIP SURGERY: 2 - 3B) Primary and secondary prevention of venous THROMBOSIS: 2 - 3C) Active venous thrombosis, pulmonary embolismand prevention of recurrent venous thrombosis: 2 - 3D) Prevention of arterial thromboembolismincluding patients with mechanical heart valves: 3 - 4.5Platelets Large [Presence] in Blood by Light microscopyOrdered By: Modesto Aquino on 76-34-9599Ngbkuawbx Large LM Ql (Bld)[facility] Prothrombin time (PT)Ordered By: Vicente Linton on 17-40-3135IJ Coag (PPP) [Time] 16.5 sHigh9.0-12.9[facility] HospitalComment on above:A hematocrit value greater than 55% may lead to inaccurate results in coagulation testing. Patientshaving hematocrit values >55% require a special collection tube for coagulation studies. Please contact the laboratory at [phone] for redraw instructions.Acanthocytes [Presence] in Blood by Light microscopyOrdered By: Modesto Aquino on 34-65-4467Stquyuytzoci LM Ql (Bld)[facility] CenterBurr cells [Presence] in Blood by Light microscopyOrdered By: Modesto Aquino on 29-36-0544Fcet cells LM Ql (Bld)[facility] CenterToxic leukocyte vacuolation detectionOrdered By: Modesto Aquino on 26-32-0065Scirptlsz toxic vacuoles LM Ql (Bld)[facility] CenterBand form neutrophils/100 WBC Manual cnt (Bld)Ordered By: Juan J Brown on 16-15-5410Qxgj form neutrophils/100 WBC (Bld)16 %High0-5FPremier HealthGiant platelets/100 leukocytes [Ratio] in Blood by Manual countOrdered By: Juan J Brown on 64-69-9047Lrhuv platelets/100 WBC Manual cnt (Bld) [Ratio]1 /100{WBC}[facility] HospitalMacrocytes LM Ql (Bld) Ordered By: Juan J Brown on 68-43-8230Pmozsatmph Ql (Bld)[facility] CenterAlbumin [Mass/volume] in Body fluidOrdered By: Vicente Linton on 58-47-6405Tzcraov (Body fld) [Mass/Vol]< 1.5 g/dLSalem City HospitalComment on above:No reference range establishedBacterial blood culture Ordered By: Lakeisha Miller on 75-40-0251Gphhmstz identified Cx Nom (Bld)NO GROWTH 5 DAYSSalem City HospitalBacteria identified Cx Nom (Bld)NO GROWTH 5 DAYSSalem City HospitalBody fluid differential cell count Ordered By: Vicente Linton on 57-21-2371Qgkkbyfawicq panel (Body fld)16 %[facility] on above:The reference interval and other method performance specifications have not been established for this body fluid. The test result must be integrated into the clinical context for interpretation. COVID-19 Detected/Not DetectedOrdered By: Juan J Brown on 89-43-7055KWWQ-CoV-2 (COVID-19) RNA JOHANN+non-probe Ql (Nph)Not detectedNot DetectDayton Children's Hospital on above:This is a duplicate RP2.1 COVID (PCR) result to be used for statistical tracking purpose only.Cells Counted Total [#] in Body fluidOrdered By: Vicenet Linton on 37-87-7158Kurkh Counted Total (Body fld) [#] 5841 mm^3FMedina Hospital on above:The reference interval and other method performance specifications have not been established for this body fluid. The test result must be integrated into the clinical context for interpretation.Color of Spun Body fluidOrdered By: Vicente Linton on 51-36-2025Bjvys (Spun body fld)[facility] on above:The reference interval and other method performance specifications have not been established for this body fluid. The test result must be integrated into the clinical context for interpretation.Determination of appearance of body fluidOrdered By: Vicente Linton on 99-57-6351Aqnqguhxjq (Body fld)CloudyUniversity [facility]als Tri[facility] Center on above:The reference interval and other method performance specifications have not been established for this body fluid. The test result must be integrated into the clinical context for interpretation. Erythrocytes [#/volume] in Body fluid by Automated countOrdered By: Vicente Linton on 56-78-9792DWS Auto (Body fld) [#/Vol]7347 mm^3FMedina Hospital on above:The reference interval and other method performance specifications have not been established for this body fluid. The test result must be integrated into the clinical context for interpretation.Evaluation of color of body fluidOrdered By: Vicente Linton on 91-53-3787Hcegz (Body fld)Yellow [facility] CenterComment on above:The reference interval and other method performance specifications have not been established for this body fluid. The test result must be integrated into the clinical context for interpretation.Glucose Glucometer (BldC) [Mass/Vol]Ordered By: Vicente Linton on 55-06-9318Zgimizs [Mass/Vol]100 mg/dLSalem City HospitalComment on above:Random Glucose Reference Range is dependent on time and content of last meal. Glucose of more than 200 mg/dL in a nonstressed, ambulatory subject supports the diagnosis of Diabetes Mellitus.Gram stain for investigation of transfusion reactionOrdered By: Juan J Brown on 15-93-9881Jefdzxtbbgh observation Gram stain Nom (Unsp spec)2 DaysSalem City HospitalGram stain for investigation of transfusion reactionOrdered By: Vicente Linton on 04-11-2024 Microscopic observation Gram stain Nom (Unsp spec)Enterobacter cloacae complex AbnormalSalem City HospitalLactate [Moles/volume] in Serum or PlasmaOrdered By: Juan J Brown on 21-54-4044Xbkqwlq [Moles/Vol]2.7 mmol/LHigh 0.5-2.2FPremier HealthComment on above:Critical Result : Called to and read back by: ALEJANDRO HAYS at: 04/11/2024 14:08 by:MLGManual body fluid eosinophils/100 leukocytesOrdered By: Vicente Linton on 04-11-2024 Eosinophils/100 WBC Manual cnt (Body fld)1 /100{WBC}0-3FPremier HealthManual body fluid lymphocytes/100 leukocytesOrdered By: Vicente Linton on 57-42-5645Dspxannqxwu/100 WBC Manual cnt (Body fld)2 %[facility] HospitalComment on above:The reference interval and other method performance specifications have not been established for this body fluid. The test result must be integrated into the clinical context for interpretation. Microscopic observation Gram stain Nom (Unsp spec)Ordered By: Vicente Linton on 62-71-0088Mrrg stain for investigation of transfusion reactionEnterobacter cloacae complexAbnormalSalem City HospitalNeutrophils/100 WBC Manual cnt (Body fld)Ordered By: Vicente Linton on 50-15-6630Yobbmefvwsj/100 WBC (Body fld)81 %[facility] HospitalComment on above:The reference interval and other method performance specifications have not been established for this body fluid. The test result must be integrated into the clinical context for interpretation.Protein [Mass/volume] in Body fluidOrdered By: Vicente Linton on 36-43-7496Gwugvrb (Body fld) [Mass/Vol]g/dLSalem City HospitalRespiratory pathogens DNA and RNA panel - Nasopharynx by JOHANN with non- probe detectionOrdered By: Juan J Brown on 55-19-9868Xxxfeckxxax pathogens DNA and RNA panel JOHANN+non-probe (Nph)[facility] Institutechistocytes [Presence] in Blood by Light microscopyOrdered By: Juan J Brown on 04-11-2024 Schistocytes LM Ql (Bld)SlightSalem City HospitalActivated partial thromboplastin time (aPTT) in platelet poor plasma by coagulation aOrdered By: Ez Delgado on 94-41-6027gVYY Coag (PPP) [Time]110.2 s25.1-36.5FPremier HealthAlanine aminotransferase [Enzymatic activity/volume] in Serum or PlasmaOrdered By: Ez Delgado on 52-30-6040UIH [Catalytic activity/Vol]19 U/L7-52 [facility] HospitalAlbumin [Mass/volume] in Serum or Plasma by Bromocresol green (BCG) dye binding methoOrdered By: Ez Delgado on 04-10-2024 Albumin BCG dye [Mass/Vol]3.1 g/dL3.5-5.7FPremier Health Alkaline phosphatase [Enzymatic activity/volume] in Serum or PlasmaOrdered By: Ez Delgado on 84-23-8020FNZ [Catalytic activity/Vol]126 U/N69-360IpmpwkbfuSalem City HospitalAmmonia [Moles/volume] in PlasmaOrdered By: Ez Delgado on 71-08-0274Sfsopej (P) [Moles/Vol]38 umol/PZzjk21-47EnsjyeswdSalem City HospitalAmylase [Enzymatic activity/volume] in Serum or PlasmaOrdered By: Ez Delgado on 34-78-6469Rknwnww [Catalytic activity/Vol]48 U/U77-399EdxnojcviSalem City HospitalAnisocytosis LM Ql (Bld)Ordered By: Ez Delgado on 58-45-2518Ayiugsfwevyb Ql (Bld)ModerateSalem City Hospital Aspartate aminotransferase [Enzymatic activity/volume] in Serum or PlasmaOrdered By: Ez Delgado on 46-03-4718WDP [Catalytic activity/Vol]40 U/R08-36DttukfnxpSalem City HospitalBacteria [Presence] in Urine by AutomatedOrdered By: Ez Delgado on 52-41-9122Ggjkrxsz Auto Ql (U)Rare [HPF]None SeenSalem City HospitalBand form neutrophils/100 WBC Manual cnt (Bld)Ordered By: Ez Delgado on 49-64-8529Kmue form neutrophils/100 WBC (Bld)9 %0-5FPremier HealthBasophils Auto (Bld) [#/Vol]Ordered By: Ez Delgado on 04-10-2024 Basophils (Bld) [#/Vol]N/AFPremier HealthBasophils/100 WBC Auto (Bld)Ordered By: Ez Delgado on 16-74-4854Tseidhtta/100 WBC (Bld)N/A [facility] HospitalBilirubin Test strip Ql (U)Ordered By: Ez Delgado on 71-17-6511Oxhymgwbz Ql (U)NegativeNegativeSalem City HospitalBilirubin.direct [Mass/volume] in Serum or PlasmaOrdered By: Ez Delgado on 32-04-3287Ipiwigttf.direct [Mass/Vol]0.90 mg/dL0.03-0.18FPremier HealthBilirubin.total [Mass/volume] in Serum or PlasmaOrdered By: Ez Delgado on 90-97-7611Sugacyewt [Mass/Vol]2.2 mg/dL0.3-1.0[facility] HospitalCalcium [Mass/volume] in Serum or PlasmaOrdered By: Ez Delgado on 28-98-1942Dbtbjkq [Mass/Vol]8.2 mg/dL8.6-10.3FPremier Health Carbon dioxide, total [Moles/volume] in Serum or PlasmaOrdered By: Ez Delgado on 94-91-3015IW0 [Moles/Vol]22.7 mmol/L21.0-31.0[facility] Chloride [Moles/volume] in Serum or PlasmaOrdered By: Ez Delgado on 04-10-2024 Chloride [Moles/Vol]104 mmol/O19-720HghysogbxSalem City HospitalColor Auto (U)Ordered By: Ez Delgado on 18-52-4144Duacs (U)YellowYellowSalem City HospitalCreatine kinase [Enzymatic activity/volume] in Serum or Plasma Ordered By: Ez Delgado on 81-74-9084BV [Catalytic activity/Vol]32 U/L30-223 [facility] HospitalCreatinine [Mass/volume] in Serum or Plasma Ordered By: Ez Delgado on 25-78-7655Xangvvmtzy [Mass/Vol]0.63 mg/dL0.60-1.20 [facility] HospitalEosinophils Auto (Bld) [#/Vol]Ordered By: Ez Delgado on 15-24-9546Rmdhcaitcab (Bld) [#/Vol]N/[facility] Eosinophils/100 WBC Auto (Bld)Ordered By: Ez Delgado on 04-10-2024 Eosinophils/100 WBC (Bld)N/[facility] CenterEosinophils/100 WBC Manual cnt (Bld)Ordered By: Ez Delgado on 37-35-5153Wuorkxnjeaw/100 WBC (Bld)2 %1-3FPremier HealthEpithelial cells.squamous [#/area] in Urine sediment by Automated countOrdered By: Ez Delgado on 79-90-7639Wjcuuhrgya cells.squamous Auto (Urine sed) [#/Area]N/[facility] Erythrocyte distribution width Auto (RBC) [Ratio]Ordered By: Ez Delgado on 49-18-5188Rywdxehpwrz distribution width (RBC) [Ratio]20.2 %11.9-15.3FPremier HealthErythrocytes [#/area] in Urine sediment by Automated countOrdered By: Ez Delgado on 32-92-5648XJF Auto (Urine sed) [#/Area]1-2 [HPF] 0-4FPremier HealthGiant platelets/100 leukocytes [Ratio] in Blood by Manual countOrdered By: Ez Delgado on 42-92-4300Shxxc platelets/100 WBC Manual cnt (Bld) [Ratio]4 /100{WBC}[facility] HospitalGlobulin Calc (S) [Mass/Vol]Ordered By: Ez Delgado on 57-74-8083Gifivzjd (S) [Mass/Vol] 2.3 g/dLSalem City HospitalGlucose [Mass/volume] in Serum or PlasmaOrdered By: Ez Delgado on 39-35-2232Gdocamc [Mass/Vol]123 mg/eQ07-658 [facility] HospitalGlucose [Mass/volume] in Urine by Test strip Ordered By: Ez Delgado on 12-32-5099Ondemcu Test strip (U) [Mass/Vol]Normal mg/dLNormalSalem City HospitalHematocrit Auto (Bld) [Volume fraction]Ordered By: Ez Delgado on 19-25-1748Ioqauebnyu (Bld) [Volume fraction] 31.6 %34.0-46.4FPremier HealthHemoglobin Test strip Ql (U) Ordered By: Ez Delgado on 46-79-1505Foqammbert Ql (U)NegativeNegativeSalem City HospitalHemoglobin [Mass/volume] in BloodOrdered By: Ez Delgado on 60-86-9724Fpojaslbqu (Bld) [Mass/Vol]10.1 g/dL11.8-15.4FPremier HealthHyaline casts [#/area] in Urine sediment by Automated countOrdered By: Ez Delgado on 88-71-4350Peqpkhn casts Auto (Urine sed) [#/Area]0-8 [LPF]0-8 [facility] HospitalHypochromia LM Ql (Bld)Ordered By: Ez Delgado on 70-76-8822Puhfgqkgeiu Ql (Bld)SlightSalem City HospitalINR in Platelet poor plasma by Coagulation assayOrdered By: Ez Delgado on 08-81-6771POD Coag (PPP) [Relative time]1.5 {INR}[facility] HospitalKetones Test strip Ql (U)Ordered By: Ez Delgado on 42-44-3317Licchmo Ql (U)Negative NegativeSalem City HospitalLactate [Moles/volume] in Serum or PlasmaOrdered By: Ez Delgado on 60-59-5256Xmithxj [Moles/Vol]3.6 mmol/L0.5-2.2 [facility] HospitalLeukocyte esterase [Presence] in Urine by Test stripOrdered By: Ez Delgado on 42-39-5115Nvpywxcfc esterase Test strip Ql (U) NegativeNegativeSalem City HospitalLeukocytes [#/area] in Urine sediment by Automated countOrdered By: Ez Delgado on 64-46-0430USF Auto (Urine sed) [#/Area]1-2 [HPF]0-4FPremier HealthLeukocytes [#/volume] corrected for nucleated erythrocytes in Blood by Automated counOrdered By: Ez Delgado on 79-29-4752KPC corrected for nucl RBC Auto (Bld) [#/Vol]2.3 10*3/uL 3.8-11.6FPremier HealthLipase [Enzymatic activity/volume] in Serum or PlasmaOrdered By: Ez Delgado on 14-30-7592Hktqsq [Catalytic activity/Vol]31.0 U/L11.0-82.0[facility] HospitalLymphocytes Auto (Bld) [#/Vol]Ordered By: Ez Delgado on 89-25-2005Tvqwtxzvarn (Bld) [#/Vol]N/A [facility] HospitalLymphocytes/100 WBC Auto (Bld)Ordered By: Ez Delgado on 81-11-8259Lgzspvzonhf/100 WBC (Bld)N/AFPremier Health Lymphocytes/100 WBC Manual cnt (Bld)Ordered By: Ez Delgado on 04-10-2024 Lymphocytes/100 WBC (Bld)10 %18-42[facility] CenterH Auto (RBC) [Entitic mass]Ordered By: Ez Delgado on 44-50-1126HFV (RBC) [Entitic mass] 25.1 pg24.7-34.3FPremier HealthMCHC Auto (RBC) [Mass/Vol] Ordered By: Ez Delgado on 70-87-4553FDIY (RBC) [Mass/Vol]32.0 g/dL32.0-35.0 [facility] HospitalMCV Auto (RBC) [Entitic vol]Ordered By: Ez Delgado on 76-81-8907XXM (RBC) [Entitic vol]78.5 pR25-258OtqznoaxxSalem City HospitalMicrocytes LM Ql (Bld)Ordered By: Ez Delgado on 04-10-2024 Microcytes Ql (Bld)ModerateSalem City HospitalMonocyte distribution width [Entitic volume] in Blood by AutomatedOrdered By: Ez Delgado on 78-86-5483Jkqrkeel distribution width Auto (Bld) [Entitic vol]Test not performed %0.00-20.00[facility] HospitalComment on above:Unable to calculate MDW because the Absolute Monocyte Count is <0.8.Monocytes Auto (Bld) [#/Vol]Ordered By: Ez Delgado on 97-03-6138Ziymtviif (Bld) [#/Vol]N/[facility] CenterMonocytes/100 WBC Auto (Bld)Ordered By: Ez Delgado on 32-54-1233Hqqllmwjk/100 WBC (Bld)N/[facility] Monocytes/100 WBC Manual cnt (Bld)Ordered By: Ez Delgado on 04-10-2024 Monocytes/100 WBC (Bld)0 %2-11[facility] HospitalMucus [Presence] in Urine by AutomatedOrdered By: Ez Delgado on 92-57-8907Ilszf Auto Ql (U)Rare [LPF][facility] HospitalNeutrophils Auto (Bld) [#/Vol]Ordered By: Ez Delgado on 27-87-4180Iquzgsphkhp (Bld) [#/Vol]N/[facility] CenterNeutrophils/100 WBC Auto (Bld)Ordered By: Ez Delgado on 04-10-2024 Neutrophils/100 WBC (Bld)N/[facility] CenterNitrite Test strip Ql (U)Ordered By: Ez Delgado on 38-48-4183Xkeipyx Ql (U)NegativeNegative [facility] HospitalNo Panel InformationOrdered By: Ez Delgado on 04-10-2024> 60.0 mL/MinSalem City Hospital66.46[facility] HospitalNo Panel InformationOrdered By: Juan J Brown on 04-10-2024 Enterobacter cloacae complexAbnormalSalem City HospitalNucleated RBC/100 WBC Manual cnt (Bld) [Ratio]Ordered By: Ez Delgado on 04-10-2024 Nucleated RBC/100 WBC (Bld) [Ratio]2 /100{WBC}High0-0[facility] HospitalNucleated erythrocytes [Presence] in Blood by Automated countOrdered By: Ez Delgado on 18-57-1304Kjiplqgms RBC Auto Ql (Bld)N/AFPremier HealthPlatelet adequacy [Presence] in Blood by Light microscopyOrdered By: Ez Delgado on 88-36-3546Mfhdabuwq LM Ql (Bld)DecreasedNormalSalem City HospitalPlatelet mean volume Auto (Bld) [Entitic vol]Ordered By: Ez Delgado on 87-07-1846Mbkxfboq mean volume (Bld) [Entitic vol]8.8 fL6.3-10.7 [facility] HospitalPlatelet morphology finding [Identifier] in BloodOrdered By: Ez Delgado on 64-49-7005Fcluhdrm morphology finding Nom (Bld) NormalNormCherrington HospitalPlatelets Auto (Bld) [#/Vol]Ordered By: Ez Delgado on 68-87-0901Bpwwakaas (Bld) [#/Vol]62 10*3/qQ377-575NlrhlxfeuSalem City HospitalPoikilocytosis [Presence] in Blood by Light microscopy Ordered By: Ez Delgado on 21-53-4813Jdmpnqnjhvujre LM Ql (Bld)ModerateSalem City HospitalPolychromasia [Presence] in Blood by Light microscopy Ordered By: Ez Delgado on 92-57-7828Qdcymhumcgymz LM Ql (Bld)SlightSalem City HospitalPotassium [Moles/volume] in Serum or PlasmaOrdered By: Ez Delgado on 73-66-5825Kpapjkhwi [Moles/Vol]3.4 mmol/L3.5-5.1FPremier HealthProtein Test strip (U) [Mass/Vol]Ordered By: Ez Delgado on 73-62-7077Redeaap (U) [Mass/Vol]20 mg/dLHighNegativeSalem City HospitalProtein [Mass/volume] in Serum or PlasmaOrdered By: Ez Delgado on 73-69-3981Zgukxpi [Mass/Vol]5.4 g/dL6.4-8.9[facility] Prothrombin time (PT)Ordered By: Ez Delgado on 44-37-1554AJ Coag (PPP) [Time] 16.9 s9.0-12.9[facility] HospitalRBC Auto (Bld) [#/Vol]Ordered By: Ez Delgado on 00-07-2279DHT (Bld) [#/Vol]4.02 10*6/uL3.60-5.00[facility] morphologyOrdered By: Ez Delgado on 50-61-7543OAK morphology finding Nom (Bld)N/AFSouthview Medical Centerchistocytes [Presence] in Blood by Light microscopyOrdered By: Ez Delgado on 04-10-2024 Schistocytes LM Ql (Bld)[facility] Medical Centeregmented neutrophils/100 WBC Manual cnt (Bld)Ordered By: Ez Delgado on 04-10-2024 Segmented neutrophils/100 WBC (Bld)79 %50-70[facility] Serum or plasma albumin/globulin mass ratioOrdered By: Ez Delgado on 04-10-2024 Albumin/Globulin [Mass ratio]1.3 {ratio}[facility] Instituteerum or plasma anion gap determinationOrdered By: Ez Delgado on 59-93-8490Vtwzk gap [Moles/Vol]13.7 mmol/L6.0-15.0[facility] Instituteerum or plasma non-glucuronidated bilirubin measurement (mass/volume)Ordered By: Ez Delgado on 25-32-9829Hapfvpdpm.indirect [Mass/Vol]1.3 mg/dLRiverview Health Instituteodium [Moles/volume] in Serum or PlasmaOrdered By: Ez Delgado on 29-69-3282Bmfejb [Moles/Vol]137 mmol/T807-900TpnryzxvmSalem City Hospital Specific gravity Test strip (U) [Rel density]Ordered By: Ez Delgado on 43-63-1195Nsnzwnih gravity (U) [Rel density]1.0231.001-1.030[facility] HospitalTeardrop cell detectionOrdered By: Ez Delgado on 04-10-2024 Dacrocytes LM Ql (Bld)[facility] CenterToxic leukocyte vacuolation detectionOrdered By: Ez Delgado on 80-55-9441Cgypecquo toxic vacuoles LM Ql (Bld)[facility] CenterTroponin I.cardiac [Mass/volume] in Serum or Plasma by Detection limit <= 0.01 ng/Ordered By: Ez Delgado on 33-56-4876Cyjpooxe I.cardiac DL <= 0.01 ng/mL [Mass/Vol]16.4 pg/mLHigh 0.0-15.0[facility] HospitalUrea nitrogen [Mass/volume] in Serum or PlasmaOrdered By: Ez Delgado on 77-11-9973Bufl nitrogen [Mass/Vol]14 mg/dL7-25 [facility] HospitalUrine appearanceOrdered By: Ez Delgado on 77-77-5577Ifqtomhsee (U)ClearClearFPremier HealthUrobilinogen Test strip (U) [Mass/Vol]Ordered By: Ez Delgado on 21-39-1196Pdsyexmfqfbk (U) [Mass/Vol]4 mg/dLHighNormalSalem City HospitalWBC Auto (Bld) [#/Vol]Ordered By: Ez Delgado on 58-88-5630IQM (Bld) [#/Vol]2.3 10*3/uL3.8-11.6 [facility] HospitalpH Test strip (U)Ordered By: Ez Delgado on 02-00-3750vI (U)5.5 [pH]5.0-9.0[facility] HospitalCBC W Auto Differential panel (Bld)on 51-28-4349Rnrgijwsg (Bld) [#/Vol]0.01 x10*3/uLNormal 0.00-0.10[facility] HospitalComment on above:Performed By: #### [id number] ####WIL HOLBROOK ([id number])[facility] (ALEX)[address] [place], [place] [address]Genrjjjdp/100 WBC (Bld)0.3 %Normal 0.0-2.0[facility] HospitalComment on above:Performed By: #### [id number] ####WIL HOLBROOK ([id number])[facility] (ALEX)[address] [place], [place] [address]Lghpqznmzqm (Bld) [#/Vol]0.11 x10*3/uL Normal0.00-0.70[facility] HospitalComment on above: Performed By: #### [id number] ####WIL HOLBROOK ([id number])[facility] (ALEX)[address] [place], [place] [address]Fewgmpehuup/100 WBC (Bld)3.1 % Normal0.0-6.0UnWayne HealthCare Main CampusComment on above: Performed By: #### [id number] ####WIL Villalobos'VANDANA ([id number])[facility] (ALEX)[address] [place], [place] [address]Jbczmeliuww distribution width (RBC) [Ratio]19.3 %High11.5-14.5[facility] Comment on above:Performed By: #### [id number] ####WIL Villalobos'VANDANA ([id number])[facility] (ALEX)[address] [place], [place] [address]Sixuhulubr (Bld) [Volume fraction]26.9 %Low36.0-46.0UnWayne HealthCare Main CampusComment on above:Performed By: #### [id number] ####WIL HOLBROOK ([id number])[facility] (ALEX)[address] [place], [place] [address]Zedasqtypm (Bld) [Mass/Vol]8.0 g/dLLow12.0-16.0UnWayne HealthCare Main CampusComment on above:Performed By: #### [id number] ####WIL Villalobos'VANDANA ([id number])[facility] (ALEX)[address] [place], [place] [address]Vghrqmxu granulocytes (Bld) [#/Vol]0.16 x10*3/uLNormal0.00-0.70[facility] HospitalComment on above:Performed By: #### 44387-0 ####WIL HOLBROOK ([id number])[facility] (ALEX)[address] [place], [place] [address]Bqumpldb granulocytes/100 WBC (Bld)4.5 %High0.0-0.9[facility] HospitalComment on above:Result Comment: Immature Granulocyte Count (IG) includes promyelocytes, myelocytes and metamyelocytes but does not include bands. Percent differential counts (%) should be interpreted in the context of the absolute cell counts (cells/UL).Performed By: #### 02551-5 ####WIL HOLBROOK ([id number])[facility] (ALEX)[address] [place], [place] [address]Fsmaxwbjdun (Bld) [#/Vol]0.72 x10*3/uLLow1.20-4.80 [facility] HospitalComment on above:Performed By: #### 16896-9 ####WIL HOLBROOK ([id number])[facility] (ALEX)[address] [place], [place] [address]Ixazrhuilfk/100 WBC (Bld)20.1 %Yqqwnj41.0-44.0 [facility] HospitalComment on above:Performed By: #### 13996-7 ####WIL HOLBROOK ([id number])[facility] (ALEX)[address] [place], [place] [address]RYI (RBC) [Entitic mass]24.7 pgLow26.0-34.0 [facility] HospitalComment on above:Performed By: #### 81581-1 ####WIL HOLBROOK ([id number])[facility] (ALEX)[address] [place] [address]MQYU (RBC) [Mass/Vol]29.7 g/dLLow32.0-36.0 [facility] HospitalComment on above:Performed By: #### 79569-6 ####WIL HOBLROOK ([id number])[facility] (ALEX)[address] [place], [place] [address]CXH (RBC) [Entitic vol]83 dDBcqscm75-878GhpodfdfdzWayne HealthCare Main CampusComment on above:Performed By: #### 99844-4 ####WIL HOLBROOK ([id number])[facility] (ALEX)[address] [place], [place] [address]Gjoeygayr (Bld) [#/Vol]0.53 x10*3/uLNormal0.10-1.00 [facility] HospitalComment on above:Performed By: #### 38445-9 ####WIL HOLBROOK ([id number])[facility] (ALEX)[address] [place], [place] [address]Wqxweaxiz/100 WBC (Bld)14.8 %Normal2.0-10.0 [facility] HospitalComment on above:Performed By: #### 15963-9 ####WIL HOLBROOK ([id number])[facility] (ALEX)[address] [place], [place] [address]Tjhpzxsziac (Bld) [#/Vol]2.06 x10*3/uLNormal 1.20-7.70UnWayne HealthCare Main CampusComment on above:Result Comment: Percent differential counts (%) should be interpreted in the context of the absolute cell counts (cells/uL).Performed By: #### 68631-6 ####WIL HOLBROOK ([id number])[facility] (ALEX)[address] [place] [address]Jjbjxqjzobc/100 WBC (Bld)57.2 %Hdofpu04.0-80.0UnWayne HealthCare Main CampusComment on above:Performed By: #### 15501-6 ####WIL HOLBROOK ([id number])[facility] (ALEX)[address] [place], [place] [address]Rqpiphqyo RBC/100 WBC (Bld) [Ratio]0.0 /100 WBCsNormal0.0-0.0UnWayne HealthCare Main CampusComment on above:Performed By: #### 93783-6 ####WIL HOLBROOK ([id number])[facility] (ALEX)[address] [place], [place] [address]Vtivmqsgb (Bld) [#/Vol]65 x10*3/fYWcy822-385ZahloiqfxjWayne HealthCare Main CampusComment on above:Performed By: #### 64607-6 ####WIL HOLBROOK ([id number])[facility] (ALEX)[address] [place], [place] [address]EFI (Bld) [#/Vol]3.24 x10*6/uLLow4.00-5.20[facility] HospitalComment on above:Performed By: #### 32316-2 ####WIL HOLBROOK ([id number])[facility] (ALEX)[address] [place], [place] [address]GDH (Bld) [#/Vol]3.6 x10*3/uLLow4.4-11.3[facility] HospitalComment on above:Performed By: #### 77202-8 ####WIL HOLBROOK ([id number])[facility] (ALEX)[address] [place], [place] [address]Fxgrhkksnlhnc metabolic 2000 panelon 45-57-4120Ymwvtdw BCP dye [Mass/Vol]3.3 g/dLLow3.4-5.0[facility] Comment on above:Performed By: #### 20782-5 ####WIL HOLBROOK ([id number])[facility] (ALEX)[address] [place], [place] [address]IMM [Catalytic activity/Vol]101 U/MWpiluf56-317VemnzafjwlGreene Memorial HospitalComment on above:Performed By: #### 93811-2 ####WIL HOLBROOK ([id number])[facility] (ALEX)[address] [place] [address] ALT With P-5'-P [Catalytic activity/Vol]20 U/LNormal7-45UnWayne HealthCare Main CampusComment on above:Result Comment: Patients treated with Sulfasalazine may generate falsely decreased results for ALT.Performed By: #### 36322-9 ####WIL HOLBROOK ([id number])[facility] (ALEX)[address] [place], [place] [address]Ldjch gap [Moles/Vol]13 mmol/ZIcjvmm76-09JfcsyomfurWayne HealthCare Main CampusComment on above:Performed By: #### 32069-0 ####WIL HOLBROOK ([id number])[facility] (ALEX)[address] [place] [address]FAM With P-5'-P [Catalytic activity/Vol]31 U/LNormal9-39 [facility] HospitalComment on above:Performed By: #### 70496-6 ####WIL HOLBROOK ([id number])[facility] (ALEX)[address] [place] [address]Oboteclxc [Mass/Vol]1.3 mg/dLHigh0.0-1.2UnWayne HealthCare Main CampusComment on above:Performed By: #### 10399-0 ####WIL HOLBROOK ([id number])[facility] (ALEX)[address] [place] [address]Fejcpcy [Mass/Vol]8.0 mg/dLLow8.6-10.3[facility] HospitalComment on above:Performed By: #### 49584-6 ####WIL Villalobos'VANDANA ([id number])[facility] (ALEX)[address] [place] [address]Hbkeygjs [Moles/Vol]103 mmol/VOxmgqq51-745HifpvxnozgWayne HealthCare Main CampusComment on above:Performed By: #### 60678-8 ####WIL HOLBROOK ([id number])[facility] (ALEX)[address] [place] [address] CO2 [Moles/Vol]25 mmol/OAoxapr26-86NwybdcmnilGreene Memorial Hospital Comment on above:Performed By: #### 14681-5 ####WIL HOLBROOK ([id number])[facility] (ALEX)[address] [place], [place] [address]Wemjrzzlpd [Mass/Vol]0.48 mg/dLLow0.50-1.05[facility] Comment on above:Performed By: #### 31422-6 ####WIL Villalobos'VANDANA ([id number])[facility] (ALEX)[address] [place], [place] [address]WRB/1.73 sq M.predicted MDRD (S/P/Bld) [Vol rate/Area]mL/min/{1.73_m2}Normal>60UnWayne HealthCare Main CampusComment on above:Result Comment: Calculations of estimated GFR are performed using the 2020 CKD-EPI Study Refit equation without the race variable for the IDMS-Traceable creatinine methods.https://jasn.asnjournals.org/content//ASN.0530544859 Performed By: #### 79200-2 ####WIL HOLBROOK ([id number])[facility] (ALEX)[address] [place], [place] [address]Jhuegxj [Mass/Vol]102 mg/dLHigh 74-99UnWayne HealthCare Main CampusComment on above:Performed By: #### 70735-4 ####WIL HOLBROOK ([id number])[facility] (ALEX)[address] [place], [place] [address]Uaoqspwsx [Moles/Vol]3.9 mmol/LNormal 3.5-5.3[facility] HospitalComment on above:Performed By: #### 10053-3 ####WIL Villalobos'VANDANA ([id number])[facility] (ALEX)[address] [place] [address]Fxdkadp [Mass/Vol]5.3 g/dLLow6.4-8.2 [facility] HospitalComment on above:Performed By: #### 50158-8 ####WIL HOLBROOK ([id number])[facility] (ALEX)[address] [place], [place] [address]Dwiihg [Moles/Vol]137 mmol/NOiudso546-473OeywpnqhbwGreene Memorial HospitalComment on above:Performed By: #### 84806-7 ####WIL HOLBROOK ([id number])[facility] (ALEX)[address] [place], [place] [address]Aeir nitrogen [Mass/Vol]12 mg/dLNormal6-23[facility] HospitalComment on above:Performed By: #### 08261-7 ####WIL HOLBROOK ([id number])[facility] (ALEX)[address] [facility] [facility], [place] [address]NSZYJICDOONZEIS (IGG, IGA, IGM)on 55-39-0432BkK [Mass/Vol] mg/kOExh87-151RpbzttygfpGreene Memorial HospitalComment on above: Order Comment: MONOCLONAL PROTEINS MAY CAUSE FALSELY LOWRESULTS IN THIS ASSAY. SERUM PROTEINELECTROPHORESIS SHOULD BE DONE THEFIRST TEST TO EVALUATE MONOCLONAL GAMMOPATHY.Performed By: #### IGS ####ARNULFO Roger ([id number])[facility] ([facility])[address] [facility], [place] [address]BpU [Mass/Vol]508 mg/pAMmp476-4518JbojtpnjjcWayne HealthCare Main CampusComment on above: Order Comment: MONOCLONAL PROTEINS MAY CAUSE FALSELY LOWRESULTS IN THIS ASSAY. SERUM PROTEINELECTROPHORESIS SHOULD BE DONE THEFIRST TEST TO EVALUATE MONOCLONAL GAMMOPATHY.Performed By: #### IGS ####ARNULFO Roger ([id number])[facility] ([facility])[address] [facility], [place] [address]YwT [Mass/Vol]mg/dL Eeg89-342WyewnbfexgWayne HealthCare Main CampusComment on above:Order Comment: MONOCLONAL PROTEINS MAY CAUSE FALSELY LOWRESULTS IN THIS ASSAY. SERUM PROTEINELECTROPHORESIS SHOULD BE DONE THEFIRST TEST TO EVALUATE MONOCLONAL GAMMOPATHY.Performed By: #### IGS ####ARNULFO Roger ([id number])[facility] ([facility])[address] [place] [address]Jekzyzlieiqcap light chains.free panel (S)on 72-65-2496Leakamiuarspbo light chains.kappa [Mass/Vol]<0.08Low 0.33-1.94[facility] HospitalComment on above:Order Comment: Undetected antigen excess is a rare event but cannot beexcluded. If these free lightchain results do not agreewith other clinical or laboratory findings, or if thesample is from a patient that has previously demonstratedantigen excess, the result must be checked by retestingat a higher sample dilution. Results should always beinterpreted in conjunction with other laboratory testsand clinical evidence; any anomalies should be discussedwith the testing laboratory.Performed By: #### 37765-2 ####ARNULFO Roger ([id number])[facility] ([facility])[address] [place] [address]Skxfdxtujsfzxb light chains.kappa/Immunoglobulin light chains.lambda (S) [Mass ratio]Normal [facility] HospitalComment on above:Order Comment: Undetected antigen excess is a rare event but cannot beexcluded. If these free lightchain results do not agreewith other clinical or laboratory findings, or if thesample is from a patient that has previously demonstratedantigen excess, the result must be checked by retestingat a higher sample dilution. Results should always beinterpreted in conjunction with other laboratory testsand clinical evidence; any anomalies should be discussedwith the testing laboratory.Result Comment: One or more analytes used in this calculationis outside of the analytical measurement range.Calculation cannot be performed.Performed By: #### 75424-6 ####ARNULFO Roger ([id number])[facility] ([facility])[address] [place] [address]Yeokzbzfkpzdsj light chains.lambda [Mass/Vol]<0.17Low 0.57-2.63[facility] Asif Medical CenterComment on above:Order Comment: Undetected antigen excess is a rare event but cannot beexcluded. If these free lightchain results do not agreewith other clinical or laboratory findings, or if thesample is from a patient that has previously demonstratedantigen excess, the result must be checked by retestingat a higher sample dilution. Results should always beinterpreted in conjunction with other laboratory testsand clinical evidence; any anomalies should be discussedwith the testing laboratory.Performed By: #### 25810-1 ####ARNULFO Roger ([id number])[facility] ([facility])[address] [place], [place] [address]Nusamkt dehydrogenaseon 92-14-2584NVB Lactate to pyruvate reaction [Catalytic activity/Vol]326 U/ETyha57-903FpgxcuaygiWayne HealthCare Main Campus Comment on above:Performed By: #### 65542-4 ####WIL HOLBROOK ([id number])[facility] ([facility])[address] [place], [place] [address]Hcwockzvj 31-65-9517Lydndcj [Mass/Vol]5.1 g/dLLow6.4-8.2UnWayne HealthCare Main CampusComment on above:Performed By: #### 2885-2 ####ARNULFO Roger ([id number])[facility] ([facility])[address] [place], [place] [address]Nypbrzd electrophoresis panelon 31-21-8054Okvwlkk [Mass/Vol]2.9 g/dLLow3.4-5.0UnWayne HealthCare Main CampusComment on above:Performed By: #### 75400-9 ####ARNULFO Roger ([id number])[facility] ([facility])[address] [place], [place] [address]ENKPU 1 GLOBULIN0.4 g/dLNormal0.2-0.6UnWayne HealthCare Main CampusComment on above:Performed By: #### 97220-6 ####ARNULFO Roger ([id number])[facility] ([facility])[address] [place], [place] [address]PKUCX 2 GLOBULIN0.7 g/dLNormal0.4-1.1[facility] Comment on above:Performed By: #### 77160-8 ####ARNULFO Roger ([id number])[facility] ([facility])[address] [place] [address]KRAM GLOBULIN0.7 g/dLNormal0.5-1.2[facility] HospitalComment on above: Performed By: #### 14642-6 ####ARNULFO Roger ([id number])[facility] ([facility])[address] [place] [address]WIECG GLOBULIN0.4 g/dLLow0.5-1.4[facility] HospitalComment on above:Performed By: #### 05575-2 ####ARNULFO Roger ([id number])[facility] ([facility])[address] [place] [address]TSCJ REVIEW-SERUM PROTEIN ELECTROPHORESISReviewed and approved by CASS FREEDMAN on 04/06/24 at 11:58 PM.NormalGreene Memorial Hospital Comment on above:Performed By: #### 00614-4 ####ARNULFO Roger ([id number])[facility] ([facility])[id number] [place] [address]NQMLHPB ELECTROPHORESIS COMMENTSEE COMMENTNormalUniBucyrus Community HospitalComment on above:Result Comment: Hypoalbuminemia. Decrease in polyclonal gamma globulins.Performed By: #### 38669-6 ####ARNULFO Roger ([id number])[facility] ([facility])[address] [place] [address]Plhwhpr 04-05-2024 Urate [Mass/Vol]4.4 mg/dLNormal2.3-6.7[facility] HospitalComment on above:Result Comment: Venipuncture immediately after or during the administration of Metamizole may lead to falsely low results. Testing should be performed immediatelyprior to Metamizole dosing.Performed By: #### 3084-1 ####WIL HOLBROOK ([id number])[facility] ([facility])[address] [place], [place] [address]RXG W Auto Differential panel (Bld)on 03-22-2024 Erythrocyte distribution width (RBC) [Ratio]19.3 %High11.5-14.5[facility] HospitalComment on above:Order Comment: The previously reported component Neutrophils % is no longer being reported.The previously reported component Lymphocytes % is no longer being reported.The previously reported component Monocytes % is no longer being reported.The previously reported component Eosinophils % is no longer being reported.The previously reported component Basophils % is no longer being reported.The previously reported component Absolute Neutrophils is no longer being reported.The previously reported component Absolute Lymphocytes is no longer being reported.The previously reported component AbsoluteMonocytes is no longer being reported.The previously reported component Absolute Eosinophils is no longer being reported.The previously reported component Absolute Basophils is no longer being reported.Performed By: #### 02076-8 ####WIL HOLBROOK ([id number])[facility] ([facility])[address] [place], [place] [address]Rayewvfaiz (Bld) [Volume fraction]26.8 %Low36.0-46.0UnWayne HealthCare Main CampusComment on above:Order Comment: The previously reported component Neutrophils % is no longer being reported.The previously reported component Lymphocytes % is no longer being reported.The previously reported component Monocytes % is no longer being reported.The previously reported component Eosinophils % is no longer being reported.The previously reported component Basophils % is no longer being reported.The previously reported component Absolute Neutrophils is no longer being reported.The previously reported co mponent Absolute Lymphocytes is no longer being reported.The previously reported component AbsoluteMonocytes is no longer being reported.The previously reported component Absolute Eosinophils is no longer being reported.The previously reported component Absolute Basophils is no longer being reported.Performed By: #### 79109-3 ####WIL HOLBROOK ([id number])[facility] ([facility])[address] [facility], [place] [address]Flhpoprmfn (Bld) [Mass/Vol]8.0 g/dLLow 12.0-16.0UnWayne HealthCare Main CampusComment on above:Order Comment: The previously reported component Neutrophils % is no longer being reported.The previously reported component Lymphocytes % is no longer being reported.The previously reported component Monocytes % is no longer being reported.The previously reported component Eosinophils % is no longer being reported.The previously reported component Basophils % is no longer being reported.The previously reported component Absolute Neutrophils is no longer being reported.The previously reported component Absolute Lymphocytes is no longer being reported.The previously reported component AbsoluteMonocytes is no longer being reported.The previously reported component Absolute Eosinophils is no longer being reported.The previously reported component Absolute Basophils is no longer being reported.Performed By: #### 67649-2 ####WIL HOLBROOK ([id number])[facility] (ALEX)[address] [place] [address] Immature granulocytes (Bld) [#/Vol]0.24 x10*3/uLNormal0.00-0.70[facility] HospitalComment on above:Order Comment: The previously reported component Neutrophils % is no longer being reported.The previously reported component Lymphocytes % is no longer being reported.The previously reported component Monocytes % is no longer being reported.The previously reported component Eosinophils % is no longer being reported.The previously reported component Basophils % is no longer being reported.The previously reported component Absolute Neutrophils is no longer being reported.The previously reported component Absolute Lymphocytes is no longer being reported.The previously reported component AbsoluteMonocytes is no longer being reported.The previously reported component Absolute Eosinophils is no longer being reported.The previously reported component Absolute Basophils is no longer being reported.Performed By: #### 91699-7 ####WLI HOLBROOK ([id number])[facility] (ALEX)[address] [facility] [address]Mvnvdqil granulocytes/100 WBC (Bld)9.8 %High0.0-0.9[facility] HospitalComment on above:Order Comment: The previously reported component Neutrophils % is no longer being reported.The previously reported component Lymphocytes % is no longer being reported.The previously reported component Monocytes % is no longer being reported.The previously reported component Eosinophils % is no longer being reported.The previously reported component Basophils % is no longer being reported.The previously reported component Absolute Neutrophils is no longer being reported.The previously reported co mponent Absolute Lymphocytes is no longer being reported.The previously reported component AbsoluteMonocytes is no longer being reported.The previously reported component Absolute Eosinophils is no longer being reported.The previously reported component Absolute Basophils is no longer being reported.Result Comment: Immature Granulocyte Count (IG) includes promyelocytes, myelocytes and metamyelocytes but does not include bands. Percent differential counts (%) should be interpreted in the context of the absolute cell counts (cells/UL). Performed By: #### 19534-9 ####WIL HOLBROOK ([id number])[facility] (ALEX)[address] [facility] [address]MKN (RBC) [Entitic mass]25.0 pgLow 26.0-34.0[facility] HospitalComment on above:Order Comment: The previously reported component Neutrophils % is no longer being reported.The previously reported component Lymphocytes % is no longer being reported.The previously reported component Monocytes % is no longer being reported.The previously reported component Eosinophils % is no longer being reported.The previously reported component Basophils % is no longer being reported.The previously reported component Absolute Neutrophils is no longer being reported.The previously reported component Absolute Lymphocytes is no longer being reported.The previously reported component AbsoluteMonocytes is no longer being reported.The previously reported component Absolute Eosinophils is no longer being reported.The previously reported component Absolute Basophils is no longer being reported.Performed By: #### 08117-2 ####WIL HOLBROOK ([id number])[facility] (ALEX)[address] [place] [address] MCHC (RBC) [Mass/Vol]29.9 g/dLLow32.0-36.0UnWayne HealthCare Main CampusComment on above:Order Comment: The previously reported component Neutrophils % is no longer being reported.The previously reported component Lymphocytes % is no longer being reported.The previously reported component Monocytes % is no longer being reported.The previously reported component Eosinophils % is no longer being reported.The previously reported component Basophils % is no longer being reported.The previously reported component Absolute Neutrophils is no longer being reported.The previously reported co mponent Absolute Lymphocytes is no longer being reported.The previously reported component AbsoluteMonocytes is no longer being reported.The previously reported component Absolute Eosinophils is no longer being reported.The previously reported component Absolute Basophils is no longer being reported.Performed By: #### 96605-2 ####WIL HOLBROOK ([id number])[facility] (ALEX)[address] [place], [place] [address]RTI (RBC) [Entitic vol]84 fLNormal 80-100UnWayne HealthCare Main CampusComment on above:Order Comment: The previously reported component Neutrophils % is no longer being reported.The previously reported component Lymphocytes % is no longer being reported.The previously reported component Monocytes % is no longer being reported.The previously reported component Eosinophils % is no longer being reported.The previously reported component Basophils % is no longer being reported.The previously reported component Absolute Neutrophils is no longer being reported.The previously reported component Absolute Lymphocytes is no longer being reported.The previously reported component AbsoluteMonocytes is no longer being reported.The previously reported component Absolute Eosinophils is no longer being reported.The previously reported component Absolute Basophils is no longer being reported.Performed By: #### 84412-0 ####WIL HOLBROOK ([id number])[facility] (ALEX)[address] [place] [address] Nucleated RBC/100 WBC (Bld) [Ratio]0.0 /100 WBCsNormal0.0-0.0[facility] HospitalComment on above:Order Comment: The previously reported component Neutrophils % is no longer being reported.The previously reported component Lymphocytes % is no longer being reported.The previously reported component Monocytes % is no longer being reported.The previously reported component Eosinophils % is no longer being reported.The previously reported component Basophils % is no longer being reported.The previously reported component Absolute Neutrophils is no longer being reported.The previously reported component Absolute Lymphocytes is no longer being reported.The previously reported component AbsoluteMonocytes is no longer being reported.The previously reported component Absolute Eosinophils is no longer being reported.The previously reported component Absolute Basophils is no longer being reported.Performed By: #### 88344-0 ####WIL HOLBROOK ([id number])[facility] (ALEX)[address] [facility] [facility] [address]Cyhsevfaw (Bld) [#/Vol]38 x10*3/uLCritically zno442-768ReatutmogmWayne HealthCare Main CampusComment on above:Order Comment: The previously reported component Neutrophils % is no longer being reported.The previously reported component Lymphocytes % is no longer being reported.The previously reported component Monocytes % is no longer being reported.The previously reported component Eosinophils % is no longer being reported.The previously reported component Basophils % is no longer being reported.The previously reported component Absolute Neutrophils is no longer being reported.The previously reported co mponent Absolute Lymphocytes is no longer being reported.The previously reported component AbsoluteMonocytes is no longer being reported.The previously reported component Absolute Eosinophils is no longer being reported.The previously reported component Absolute Basophils is no longer being reported.Result Comment: Previous result verified on 03/22/2024 1512 on specimen/case [id number] called with component PLT for procedure CBC and Auto Differential with value 38 x10*3/uL.Performed By: #### 76991-6 ####WIL HOLBROOK ([id number])[facility] (ALEX)[address] [facility] [address]ZHB (Bld) [#/Vol]3.20 x10*6/uLLow4.00-5.20[facility] Comment on above:Order Comment: The previously reported component Neutrophils % is no longer being reported.The previously reported component Lymphocytes % is no longer being reported.The previously reported component Monocytes % is no longer being reported.The previously reported component Eosinophils % is no longer being reported.The previously reported component Basophils % is no longer being reported.The previously reported component Absolute Neutrophils is no longer being reported.The previously reported component Absolute Lymphocytes is no longer being reported.The previously reported component AbsoluteMonocytes is no longer being reported.The previously reported component Absolute Eosinophils is no longer being reported.The previously reported component Absolute Basophils is no longer being reported.Performed By: #### 47637-9 ####WIL HOLBROOK ([id number])[facility] (ALEX)[address] [place] [address] WBC (Bld) [#/Vol]2.5 x10*3/uLLow4.4-11.3[facility] HospitalComment on above:Order Comment: The previously reported component Neutrophils % is no longer being reported.The previously reported component Lymphocytes % is no longer being reported.The previously reported component Monocytes % is no longer being reported.The previously reported component Eosinophils % is no longer being reported.The previously reported component Basophils % is no longer being reported.The previously reported component Absolute Neutrophils is no longer being reported.The previously reported co mponent Absolute Lymphocytes is no longer being reported.The previously reported component AbsoluteMonocytes is no longer being reported.The previously reported component Absolute Eosinophils is no longer being reported.The previously reported component Absolute Basophils is no longer being reported.Performed By: #### 73818-1 ####WIL HOLBROOK ([id number])[facility] (ALEX)[address] [place], [place] [address]Psveaxnmjkmgj metabolic 2000 panelon 06-91-4814Blolzvk BCP dye [Mass/Vol]3.3 g/dLLow3.4-5.0[facility] HospitalComment on above:Performed By: #### 44036-8 ####WIL HOLBROOK ([id number])[facility] (ALEX)[address] [place], [place] [address]GZO [Catalytic activity/Vol]106 U/LGnesik38-089RtuwnmaeqlGreene Memorial HospitalComment on above:Performed By: #### 74240-7 ####WIL HOLBROOK ([id number])[facility] (ALEX)[address] [place], [place] [address]YUV With P-5'-P [Catalytic activity/Vol]21 U/LNormal7-45[facility] HospitalComment on above:Result Comment: Patients treated with Sulfasalazine may generate falsely decreased results for ALT. Performed By: #### 65523-5 ####WIL HOLBROOK ([id number])[facility] (ALEX)[address] [place], [place] [address]Vqxyf gap [Moles/Vol]12 mmol/L Onokmy11-99KpwayghunbGreene Memorial HospitalComment on above: Performed By: #### 79317-5 ####WIL Villalobos'VANDANA ([id number])[facility] (ALEX)[address] [place] [address]YUB With P-5'-P [Catalytic activity/Vol]35 U/LNormal9-39[facility] Comment on above:Performed By: #### 50459-5 ####WIL Villalobos'VANDANA ([id number])[facility] (ALEX)[address] [place] [address]Ntwgzgtnp [Mass/Vol]1.3 mg/dLHigh0.0-1.2[facility] Comment on above:Performed By: #### 37157-8 ####WIL Villalobos'VANDANA ([id number])[facility] (ALEX)[address] [place] [address]Lfbokro [Mass/Vol]8.4 mg/dLLow8.6-10.3[facility] Comment on above:Performed By: #### 61397-6 ####WIL Villalobos'VANDANA ([id number])[facility] (ALEX)[address] [place] [address]Yfzaoftv [Moles/Vol]105 mmol/GXilfru24-707KexfiibgozGre[facility] Hospital Comment on above:Performed By: #### 83084-2 ####WIL Villalobos'VANDANA ([id number])[facility] (ALEX)[address] [place], [place] [address]HJ1 [Moles/Vol]26 mmol/OQmmnip76-99IfokroopjuGre[facility] Memorial Hospital Comment on above:Performed By: #### 25765-3 ####WIL Villalobos'VANDANA ([id number])[facility] (ALEX)[address] [place], [place] [address]Jgjllvhsvq [Mass/Vol]0.43 mg/dLLow0.50-1.05[facility] Comment on above:Performed By: #### 36115-3 ####WILAMANDA HOLBROOK ([id number])[facility] (ALEX)[address] [place] [address]HYW/1.73 sq M.predicted MDRD (S/P/Bld) [Vol rate/Area]mL/min/{1.73_m2}Normal>60UnWayne HealthCare Main CampusComment on above:Result Comment: Calculations of estimated GFR are performed using the 2020 CKD-EPI Study Refit equation without the race variable for the IDMS-Traceable creatinine methods.https://jasn.asnjournals.org/content/early/ASN.0030645453 Performed By: #### 02948-4 ####WIL HOLBROOK ([id number])[facility] (ALEX)[address] [place] [address]Msmldjs [Mass/Vol]98 mg/dLNormal 74-99UnWayne HealthCare Main CampusComment on above:Performed By: #### 18031-1 ####WIL Villalobos'VANDANA ([id number])[facility] (ALEX)[address] [place] [address]Rbvqyligd [Moles/Vol]3.9 mmol/LNormal 3.5-5.3UnWayne HealthCare Main CampusComment on above:Performed By: #### 29801-6 ####WIL HOLBROOK ([id number])[facility] (ALEX)[address] [place] [address]Aqejvyq [Mass/Vol]5.2 g/dLLow6.4-8.2 [facility] HospitalComment on above:Performed By: #### 82643-6 ####WIL HOLBROOK ([id number])[facility] (ALEX)[address] [place] [address]Twhdmg [Moles/Vol]139 mmol/JUuoqkx501-827SzbybhawpqWayne HealthCare Main CampusComment on above:Performed By: #### 42190-7 ####WIL HOLBROOK ([id number])[facility] (ALEX)[address] [place] [address]Gpos nitrogen [Mass/Vol]11 mg/dLNormal6-23[facility] HospitalComment on above:Performed By: #### 20752-7 ####WIL HOLBROOK ([id number])[facility] (ALEX)[address] [place] [address]Vwibpd differential performed Ql (Bld)on 86-48-2211Klpy form neutrophils (Bld) [#/Vol]0.03 x10*3/uLNormal0.00-0.70[facility] HospitalComment on above:Performed By: #### 22249-3 ####WIL HOLBROOK ([id number])[facility] (ALEX)[address] [place], [place] [address]Eaeo form neutrophils/100 WBC (Bld)1.0 %Normal0.0-5.0UnWayne HealthCare Main CampusComment on above:Performed By: #### 62134-6 ####WIL HOLBROOK ([id number])[facility] (ALEX)[address] [place] [address]Nfoikzitd (Bld) [#/Vol]0.00 x10*3/uLNormal0.00-0.10 [facility] HospitalComment on above:Performed By: #### 12374-5 ####WIL HOLBROOK ([id number])[facility] (ALEX)[address] [place] [address]Onmhtejvy/100 WBC (Bld)0.0 %Normal0.0-2.0UnWayne HealthCare Main CampusComment on above:Performed By: #### 74868-5 ####WIL HOLBROOK ([id number])[facility] (ALEX)[address] [place] [address]Uinwd Counted Total (Bld) [#]100NormalUniversUniversity Hospitals Geauga Medical CenterComment on above:Performed By: #### 63385-8 ####WIL O'VANDANA ([id number])[facility] (ALEX)[address] [place] [address]Lslijmtgkl LM Ql (Bld)[facility] for RehabilitationComment on above:Performed By: #### 38497-1 ####WIL O'VANDANA (397302)[facility] (ALEX)[address] [place], [place] [address]Llvgjnyfnsn (Bld) [#/Vol]0.08 x10*3/uLNormal0.00-0.70[facility] HospitalComment on above:Performed By: #### 84385-5 ####WIL Villalobos'VANDANA (350023)[facility] (ALEX)[address] [place] [address] Eosinophils/100 WBC (Bld)3.0 %Normal0.0-6.0UnWayne HealthCare Main CampusComment on above:Performed By: #### 07659-9 ####WIL Villalobos'VANDANA (720298)[facility] (ALEX)[address] [place] [address] Hypochromia Ql (Bld)[facility] Comment on above:Performed By: #### 54493-7 ####WIL Villalobos'VANDANA (604111)[facility] (ALEX)[address] [place] [address]Xyilmwmicvh (Bld) [#/Vol]0.60 x10*3/uLLow1.20-4.80[facility] HospitalComment on above:Performed By: #### 45421-1 ####WIL Villalobos'VANDANA (416006)[facility] (ALEX)[address] [place] [address] Lymphocytes/100 WBC (Bld)24.0 %Mbbesb46.0-44.0[facility] Asif Medical CenterComment on above:Performed By: #### 96421-5 ####WIL Villalobos'VANDANA (589018)[facility] (ALEX)[address] [place] [address] Monocytes (Bld) [#/Vol]0.08 x10*3/uLLow0.10-1.00UnWayne HealthCare Main CampusComment on above:Performed By: #### 96651-0 ####WIL Villalobos'VANDANA (495703)[facility] (ALEX)[address] [place] [address] Monocytes/100 WBC (Bld)3.0 %Normal2.0-10.0UnWayne HealthCare Main CampusComment on above:Performed By: #### 46103-6 ####WIL Villalobos'VANDANA (847333)[facility] (ALEX)[address] [place] [address] Myelocytes (Bld) [#/Vol]0.03 x10*3/uLNormal0.00-0.00UnWayne HealthCare Main CampusComment on above:Performed By: #### 18944-3 ####WIL Villalobos'VANDANA ([id number])[facility] (ALEX)[address] [place] [place] [address]Vkohjoinrp/100 WBC (Bld)1.0 %Normal0.0-0.0[facility] HospitalComment on above:Performed By: #### 84572-0 ####WIL Villalobos'VANDANA ([id number])[facility] (ALEX)[address] [place] [address] Neutrophils (Bld) [#/Vol]1.73 x10*3/uLNormal1.20-7.70UnWayne HealthCare Main CampusComment on above:Performed By: #### 24721-5 ####WIL Villalobos'VANDANA (996943)[facility] (ALEX)[address] [place], [place] [address]Jftcbmlnmyz.hypersegmented LM Ql (Bld)[facility]erm[facility] HospitalComment on above:Performed By: #### 45553-5 ####WIL Villalobos'VANDANA (626626)[facility] (ALEX)[address] [place] [address]Dtodurgmrd LM Ql (Bld)[facility] RehabilitationComment on above:Performed By: #### 28400-0 ####WIL Villalobos'VANDANA ([id number])[facility] (ALEX)[address] [place] [address] Polychromasia LM Ql (Bld)[facility] Comment on above:Performed By: #### 32176-7 ####WIL Villalobos'VANDANA ([id number])[facility] (ALEX)[address] [place] [address]IBE morphology finding Nom (Bld)See [facility] HospitalComment on above:Performed By: #### 95025-4 ####WIL O'VANDANA ([id number])[facility] (ALEX)[address] [place] [address] Rouleaux LM Ql (Bld)[facility] Comment on above:Performed By: #### 18288-9 ####WIL Villalobos'VANDANA ([id number])[facility] (ALEX)[address] [place] [address]Bxtpyxref neutrophils (Bld) [#/Vol]1.70 x10*3/uLNormal1.20-7.00[facility] HospitalComment on above:Performed By: #### 99203-3 ####WIL Villalobos'VANDANA ([id number])[facility] (ALEX)[address] [place] [address]Mzgjncyei neutrophils/100 WBC (Bld)68.0 %Mjsxdc34.0-80.0[facility] HospitalComment on above:Result Comment: Percent differential counts (%) should be interpreted in the context of the absolute cell counts (cells/uL).Performed By: #### 01926-6 ####WIL HOLBROOK (809324)[facility] (ALEX)[address] [place] [address]CHU W Auto Differential panel (Bld)on 94-26-2864Ygzbsjclx (Bld) [#/Vol]0.00 x10*3/uLNormal 0.00-0.10UnWayne HealthCare Main CampusComment on above:Performed By: #### 61896-5 ####WIL HOLBROOK ([id number])[facility] (ALEX)[address] [place], [place] [address]Lknamjeup/100 WBC (Bld)0.0 %Normal 0.0-2.0UnWayne HealthCare Main CampusComment on above:Performed By: #### 75573-7 ####WIL HOLBROOK (176854)[facility] (ALEX)[address] [place] [address]Jatplmubwrh (Bld) [#/Vol]0.06 x10*3/uL Normal0.00-0.70UnWay[facility] HealthCare Main CampusComment on above: Performed By: #### 30055-9 ####WIL HOLBROOK (980939)[facility] (ALEX)[address] [place] [address]Pqzljswpfhx/100 WBC (Bld)2.3 % Normal0.0-6.0UnWayne HealthCare Main CampusComment on above: Performed By: #### 34202-5 ####WIL HOLBROOK (526378)[facility] (ALEX)[address] [place] [address]Qxwlyzstltn distribution width (RBC) [Ratio]19.6 %High11.5-14.5Un[facility] Comment on above:Performed By: #### 73188-5 ####WIL HOLBROOK (224222)[facility] (ALEX)[address] [place] [address]Xtkshbzclb (Bld) [Volume fraction]27.3 %Low36.0-46.0[facility] HospitalComment on above:Performed By: #### 22047-0 ####WIL HOLBROOK ([id number])[facility] (ALEX)[address] [place] [address]Updtxznqkn (Bld) [Mass/Vol]8.1 g/dLLow12.0-16.0[facility] HospitalComment on above:Performed By: #### 71629-8 ####WIL HOLBROOK (590959)[facility] (ALEX)[address] [place] [address]Flluzkpu granulocytes (Bld) [#/Vol]0.15 x10*3/uLNormal0.00-0.70UnWay[facility] HealthCare Main CampusComment on above:Performed By: #### 23858-6 ####WIL HOLBROOK (015132)[facility] (ALEX)[address] [place] [address]Labfvghf granulocytes/100 WBC (Bld)5.7 %High0.0-0.9[facility] HospitalComment on above:Result Comment: Immature Granulocyte Count (IG) includes promyelocytes, myelocytes and metamyelocytes but does not include bands. Percent differential counts (%) should be interpreted in the context of the absolute cell counts (cells/UL).Performed By: #### 48612-9 ####WIL HOLBROOK (094458)[facility] (ALEX)[address] [place] [address]Qtojaghndlx (Bld) [#/Vol]0.56 x10*3/uLLow1.20-4.80 [facility] HospitalComment on above:Performed By: #### 49171-1 ####WIL Villalobos'VANDANA ([id number])[facility] (ALEX)[address] [place] [address]Tazyahxdtcg/100 WBC (Bld)21.4 %Xmpqgp77.0-44.0 [facility] HospitalComment on above:Performed By: #### 89505-1 ####WIL Villalobos'VANDANA (448252)[facility] (ALEX)[address] [place], [place] [address]UQJ (RBC) [Entitic mass]25.2 pgLow26.0-34.0 [facility] HospitalComment on above:Performed By: #### 42494-9 ####WIL Villalobos'VANDANA (220449)[facility] (ALEX)[address] [place], [place] [address]YDIZ (RBC) [Mass/Vol]29.7 g/dLLow32.0-36.0 [facility] HospitalComment on above:Performed By: #### 03401-1 ####WIL Villalobos'VANDANA (453041)[facility] (ALEX)[address] [place], [place] [address]WXR (RBC) [Entitic vol]85 cNWqrnya49-364XzouoxkgvjWayne HealthCare Main CampusComment on above:Performed By: #### 48372-4 ####WIL Villalobos'VANDANA ([id number])[facility] (ALEX)[address] [place] [address]Jzdyjvnpk (Bld) [#/Vol]0.37 x10*3/uLNormal0.10-1.00 [facility] HospitalComment on above:Result Comment: Automated WBC differential has been confirmed by manual smear.Performed By: #### 44564-9 ####WIL Villalobos'VANDANA ([id number])[facility] (ALEX)[address] [place] [address]Mmrijsqci/100 WBC (Bld)14.1 %Normal2.0-10.0 [facility] HospitalComment on above:Performed By: #### 27575-3 ####WIL HOLBROOK (439248)[facility] (ALEX)[address] [place] [address]Psdikwwoitb (Bld) [#/Vol]1.48 x10*3/uLNormal 1.20-7.70UnWayne HealthCare Main CampusComment on above:Result Comment: Percent differential counts (%) should be interpreted in the context of the absolute cell counts (cells/uL).Performed By: #### 91900-8 ####WIL HOLBROOK (712811)[facility] (ALEX)[address] [place] [address]Dpbrjcntjld/100 WBC (Bld)56.5 %Lstuzu94.0-80.0UnWayne HealthCare Main CampusComment on above:Performed By: #### 35536-2 ####WIL HOLBROOK (649411)[facility] (ALEX)[address] [place] [address]Vnjlaeity RBC/100 WBC (Bld) [Ratio]0.0 /100 WBCsNormal0.0-0.0UnWayne HealthCare Main CampusComment on above:Performed By: #### 95821-3 ####WIL HOLBROOK ([id number])[facility] (ALEX)[address] [place] [address]Rundmnlxq (Bld) [#/Vol]39 x10*3/uLCritically xza393-280 [facility] HospitalComment on above:Performed By: #### 57788-6 ####WIL HOLBROOK (512102)[facility] (ALEX)[address] [place] [address]EWU (Bld) [#/Vol]3.21 x10*6/uLLow4.00-5.20 [facility] HospitalComment on above:Performed By: #### 54866-3 ####WIL HOLBROOK (622325)[facility] (ALEX)[address] [place] [address]SMM (Bld) [#/Vol]2.6 x10*3/uLLow4.4-11.3[facility] HospitalComment on above:Performed By: #### 33228-8 ####WIL HOLBROOK (100761)[facility] (ALEX)[address] [place], [place] [address]Oownnwjbyugeb metabolic 2000 panelon 16-27-1329Bgrelgb BCP dye [Mass/Vol]3.2 g/dLLow3.4-5.0UnWayne HealthCare Main Campus Comment on above:Performed By: #### 93238-0 ####WIL HOLBROOK (804283)[facility] (ALEX)[address] [place], [place] [address]NJY [Catalytic activity/Vol]98 U/OWdaeea64-298SwucfchkepWayne HealthCare Main CampusComment on above:Performed By: #### 47139-4 ####WIL HOLBROOK (586914)[facility] (ALEX)[address] [place], [place] [address]MLU With P-5'-P [Catalytic activity/Vol]27 U/LNormal7-45UnWayne HealthCare Main CampusComment on above:Result Comment: Patients treated with Sulfasalazine may generate falsely decreased results for ALT.Performed By: #### 63493-6 ####WIL HOLBROOK (797655)[facility] (ALEX)[address] [place], [place] [address]Jstsc gap [Moles/Vol]10 mmol/FBkkohg10-35DqkvrhcwzbGreene Memorial HospitalComment on above:Performed By: #### 24787-5 ####WIL HOLBROOK ([id number])[facility] (ALEX)[address] [place], [place] [address]LLF With P-5'-P [Catalytic activity/Vol]38 U/LNormal9-39 [facility] HospitalComment on above:Performed By: #### 30276-0 ####WIL Villalobos'VANDANA (154760)[facility] (ALEX)[address] [place] [address]Owrfjknlu [Mass/Vol]1.0 mg/dLNormal0.0-1.2 [facility] HospitalComment on above:Performed By: #### 49765-9 ####WIL Villalobos'VANDANA (094513)[facility] (ALEX)[address] [place] [address]Feotqqz [Mass/Vol]7.7 mg/dLLow8.6-10.3[facility] HospitalComment on above:Performed By: #### 49312-7 ####WIL Villalobos'VANDANA (510759)[facility] (ALEX)[address] [place] [place] [address]Xbzmcdrp [Moles/Vol]108 mmol/ETboh14-805QopketcntoWayne HealthCare Main CampusComment on above:Performed By: #### 23364-1 ####WIL Villalobos'VANDANA (401372)[facility] (ALEX)[address] [place], [place] [address]CF6 [Moles/Vol]26 mmol/GAmouqe39-89AktxymwnokWayne HealthCare Main CampusComment on above:Performed By: #### 87666-3 ####WIL Villalobos'VANDANA (686741)[facility] (ALEX)[address] [place] [address]Flbrmpwehd [Mass/Vol]0.46 mg/dLLow0.50-1.05UnWayne HealthCare Main CampusComment on above:Performed By: #### 16769-1 ####WIL Villalobos'VANDANA (826802)[facility] (ALEX)[address] [place] [address]NXB/1.73 sq M.predicted MDRD (S/P/Bld) [Vol rate/Area]mL/min/{1.73_m2} Normal>60UnWayne HealthCare Main CampusComment on above:Result Comment: Calculations of estimated GFR are performed using the 2020 CKD-EPI Study Refit equation without the race variable for the IDMS-Traceable creatinine methods.https://jasn.asnjournals.org/content/early//ASN.9483578831 Performed By: #### 82105-7 ####WIL Villalobos'VANDANA ([id number])[facility] (ALEX)[address] [place], [place] [address]Akiagvi [Mass/Vol]97 mg/dLNormal 74-99UnWayne HealthCare Main CampusComment on above:Performed By: #### 20742-7 ####WIL O'VANDANA (244098)[facility] (ALEX)[address] [place], [place] [address]Hvytwsubx [Moles/Vol]3.9 mmol/LNormal 3.5-5.3UnWayne HealthCare Main CampusComment on above:Performed By: #### 03458-6 ####WIL Villalobos'VANDANA (762473)[facility] (ALEX)[address] [place] [address]Fgusyfo [Mass/Vol]4.9 g/dLLow6.4-8.2 [facility] HospitalComment on above:Performed By: #### 37284-5 ####WIL O'VANDANA (056080)[facility] (ALEX)[address] [place] [place] [address]Swfgpw [Moles/Vol]140 mmol/YGhltmu842-210IeeozkmdkaWayne HealthCare Main CampusComment on above:Performed By: #### 09631-3 ####WIL O'VANDANA (038766)[facility] (ALEX)[address] [place] [address]Tdfo nitrogen [Mass/Vol]11 mg/dLNormal6-[facility] HospitalComment on above:Performed By: #### 44638-3 ####WIL O'VANDANA ([id number])[facility] (ALEX)[address] [place] [address]GVQ shape Nom (Bld)on 24-60-4232Yttzsuucli LM Ql (Bld)[facility] CenterComment on above:Performed By: #### 92186-3 ####WIL O'VANDANA (174056)[facility] (ALEX)[address] [place] [address]Zixfg body LM Ql (Bld)[facility] HospitalComment on above:Performed By: #### 84210-9 ####WIL O'VANDANA (151162)[facility] (ALEX)[address] [place] [address]Bubzjocpgug Ql (Bld)[facility] ShawComment on above:Performed By: #### 86963-7 ####WIL O'VANDANA (420394)[facility] (ALEX)[address] [place] [address]Zkcfnrtkdel.hypersegmented LM Ql (Bld)[facility] HospitalComment on above:Performed By: #### 57536-1 ####WIL O'VANDANA (910230)[facility] (ALEX)[address] [place] [address]Hswfldbbfy LM Ql (Bld)[facility] RehabilitationComment on above:Performed By: #### 38372-3 ####WIL O'VANDANA (355829)[facility] (ALEX)[address] [place] [address] Polychromasia LM Ql (Bld)[facility] Comment on above:Performed By: #### [id number] ####WIL Villalobos'VANDANA ([id number])[facility] (ALEX)[address] [place], [place] [address]JWC morphology finding Nom (Bld)See BelowNoCleveland Clinic Lutheran HospitalComment on above:Performed By: #### 54868-6 ####WIL Villalobos'VANDANA ([id number])[facility] (ALEX)[address] [place] [address] CBC W Auto Differential panel (Bld)on [id number] (Bld) [#/Vol]0.00 x10*3/uLNormal0.00-0.10[facility] HospitalComment on above:Result Comment: Automated WBC differential has been confirmed by manual smear.Performed By: #### 72870-8 ####WIL Villalobos'VANDANA ([id number])[facility] (ALEX)[address] [place], [place] [address]Mlwstvwoh/100 WBC (Bld)0.0 % Normal0.0-2.0[facility] HospitalComment on above: Performed By: #### 37723-0 ####WIL Villalobos'VANDANA ([id number])[facility] (ALEX)[address] [place], [place] [address]Jzpnwaymhsq (Bld) [#/Vol]0.03 x10*3/uLNormal0.00-0.70[facility] HospitalComment on above:Performed By: #### 23749-0 ####WIL Villalobos'VANDANA ([id number])[facility] (ALEX)[address] [place], [place] [address]Lekbxkbwfdt/100 WBC (Bld)1.6 %Normal0.0-6.0[facility] HospitalComment on above: Performed By: #### 13104-9 ####WILAMANDA HOLBROOK ([id number])[facility] (ALEX)[address] [place], [place] [address]Lptycdndjkm distribution width (RBC) [Ratio]18.0 %High11.5-14.5[facility] Comment on above:Performed By: #### 17371-2 ####WIL HOLBROOK ([id number])[facility] (ALEX)[address] [place], [place] [address]Kqjcgufpqv (Bld) [Volume fraction]27.9 %Low36.0-46.0Un[facility] CampusComment on above:Performed By: #### 98720-6 ####WIL HOLBROOK ([id number])[facility] (ALEX)[address] [place], [place] [address]Gqglvomqxt (Bld) [Mass/Vol]8.4 g/dLLow12.0-16.0UnWayne HealthCare Main CampusComment on above:Performed By: #### 01861-5 ####WIL HOLBROOK ([id number])[facility] (ALEX)[address] [place], [place] [address]Ygotxkfp granulocytes (Bld) [#/Vol]0.04 x10*3/uLNormal0.00-0.70[facility] HospitalComment on above:Performed By: #### 38212-2 ####WIL HOLBROOK ([id number])[facility] (ALEX)[address] [place], [place] [address]Kdtnbbsx granulocytes/100 WBC (Bld)2.2 %High0.0-0.9UnWayne HealthCare Main CampusComment on above:Result Comment: Immature Granulocyte Count (IG) includes promyelocytes, myelocytes and metamyelocytes but does not include bands. Percent differential counts (%) should be interpreted in the context of the absolute cell counts (cells/UL).Performed By: #### 66985-5 ####WIL HOLBROOK ([id number])[facility] (ALEX)[address] [place], [place] [address]Uavukilnhsh (Bld) [#/Vol]0.40 x10*3/uLLow1.20-4.80 [facility] HospitalComment on above:Performed By: #### 19409-7 ####WIL HOLBROOK ([id number])[facility] (ALEX)[address] [place], [place] [address]Raayjrngoom/100 WBC (Bld)21.6 %Vdadoo94.0-44.0 [facility] HospitalComment on above:Performed By: #### 76788-1 ####WIL HOLBROOK ([id number])[facility] (ALEX)[address] [place], [place] [address]ICN (RBC) [Entitic mass]25.1 pgLow26.0-34.0 [facility] HospitalComment on above:Performed By: #### 12616-4 ####WIL HOLBROOK ([id number])[facility] (ALEX)[address] [place], [place] [address]YMXH (RBC) [Mass/Vol]30.1 g/dLLow32.0-36.0 [facility] HospitalComment on above:Performed By: #### 69851-3 ####WIL HOLBROOK ([id number])[facility] (ALEX)[address] [place], [place] [address]EVX (RBC) [Entitic vol]84 pBPubobd17-513DvyaqiggziGreene Memorial HospitalComment on above:Performed By: #### 13968-4 ####WIL HOLBROOK ([id number])[facility] (ALEX)[address] [place], [place] [address]Xlzisbiwt (Bld) [#/Vol]0.17 x10*3/uLNormal0.10-1.00 [facility] HospitalComment on above:Performed By: #### 47214-4 ####WIL Villalobos'VANDANA ([id number])[facility] (ALEX)[address] [place], [place] [address]Fjwujppws/100 WBC (Bld)9.2 %Normal2.0-10.0 [facility] HospitalComment on above:Performed By: #### 41237-6 ####WIL O'VANDANA ([id number])[facility] (ALEX)[address] [place], [place] [address]Smqubzrwpao (Bld) [#/Vol]1.21 x10*3/uLNormal 1.20-7.70UnWayne HealthCare Main CampusComment on above:Result Comment: Percent differential counts (%) should be interpreted in the context of the absolute cell counts (cells/uL).Performed By: #### 63671-7 ####WIL Villalobos'VANDANA ([id number])[facility] (ALEX)[address] [place] [address]Cvemhdeursi/100 WBC (Bld)65.4 %Kxuzhd79.0-80.0UnWayne HealthCare Main CampusComment on above:Performed By: #### 45964-9 ####WIL Villalobos'VANDANA ([id number])[facility] (ALEX)[address] [place] [address]Pdujkzxhw RBC/100 WBC (Bld) [Ratio]0.0 /100 WBCsNormal0.0-0.0UnWayne HealthCare Main CampusComment on above:Performed By: #### 33614-0 ####WIL O'VANDANA ([id number])[facility] (ALEX)[address] [place], [place] [address]Oupnotpxu (Bld) [#/Vol]45 x10*3/bATfc667-468GqadufgqujWayne HealthCare Main CampusComment on above:Performed By: #### 26933-1 ####WIL Villalobos'VANDANA ([id number])[facility] (ALEX)[address] [place], [place] [address]ZUG (Bld) [#/Vol]3.34 x10*6/uLLow4.00-5.20[facility] HospitalComment on above:Performed By: #### 33309-8 ####WIL HOLBROOK (869796)[facility] (ALEX)[address] [place], [place] [address]TPA (Bld) [#/Vol]1.9 x10*3/uLLow4.4-11.3[facility] HospitalComment on above:Performed By: #### 06155-7 ####WIL HOLBROOK ([id number])[facility] (ALEX)[address] [place], [place] [address]Jlsglafajxwhv metabolic 2000 panelon 36-91-1672Ctzwxyo BCP dye [Mass/Vol]3.4 g/dLNormal3.4-5.0[facility] HospitalComment on above:Performed By: #### 31858-5 ####WIL HOLBROOK ([id number])[facility] (ALEX)[address] [place], [place] [address]IIW [Catalytic activity/Vol]102 U/EKjndyp93-142IhvrshxtdyGreene Memorial HospitalComment on above:Performed By: #### 03754-7 ####WIL HOLBROOK ([id number])[facility] (ALEX)[address] [place] [address] ALT With P-5'-P [Catalytic activity/Vol]17 U/LNormal7-45[facility] HospitalComment on above:Result Comment: Patients treated with Sulfasalazine may generate falsely decreased results for ALT.Performed By: #### 81024-1 ####WIL HOLBROOK ([id number])[facility] (ALEX)[address] [place], [place] [address]Zfzft gap [Moles/Vol]12 mmol/SWqajjv86-74DhlwfaxiigGreene Memorial HospitalComment on above:Performed By: #### 44501-3 ####WIL Villalobos'VANDANA ([id number])[facility] (ALEX)[address] [place], [place] [address]FGI With P-5'-P [Catalytic activity/Vol]29 U/LNormal9-39 [facility] HospitalComment on above:Performed By: #### 74900-8 ####WIL Villalobos'VANDANA ([id number])[facility] (ALEX)[address] [place], [place] [address]Ctoskxmdi [Mass/Vol]0.9 mg/dLNormal0.0-1.2 [facility] HospitalComment on above:Performed By: #### 01919-8 ####WIL Villalobos'VANDANA ([id number])[facility] (ALEX)[address] [place], [place] [address]Vlsaotc [Mass/Vol]8.5 mg/dLLow8.6-10.3[facility] HospitalComment on above:Performed By: #### 36097-7 ####WIL HOLBROOK ([id number])[facility] (ALEX)[address] [place], [place] [address]Cvfllhxq [Moles/Vol]108 mmol/VBpey43-106ExouyykervWayne HealthCare Main CampusComment on above:Performed By: #### 48259-8 ####WIL Villalobos'VANDANA ([id number])[facility] (ALEX)[address] [place], [place] [address]EF8 [Moles/Vol]25 mmol/ZKmrdwh05-77OdpywyafigWayne HealthCare Main CampusComment on above:Performed By: #### 57162-4 ####WIL Villalobos'VANDANA (686736)[facility] (ALEX)[address] [place], [place] [address]Hqyikrlfbp [Mass/Vol]0.50 mg/dLNormal0.50-1.05UnWayne HealthCare Main CampusComment on above:Performed By: #### 91548-6 ####WIL HOLBROOK ([id number])[facility] (ALEX)[address] [place], [place] [address]VMO/1.73 sq M.predicted MDRD (S/P/Bld) [Vol rate/Area]mL/min/{1.73_m2} Normal>60UnWayne HealthCare Main CampusComment on above:Result Comment: Calculations of estimated GFR are performed using the 2020 CKD-EPI Study Refit equation without the race variable for the IDMS-Traceable creatinine methods.https://jasn.asnjournals.org/content//ASN.1804069414 Performed By: #### 49753-2 ####WIL HOLBROOK ([id number])[facility] (ALEX)[address] [place], [place] [address]Xiqxwrn [Mass/Vol]116 mg/dLHigh 74-99UnWayne HealthCare Main CampusComment on above:Performed By: #### 11658-9 ####WIL iVllalobos'VANDANA (024944)[facility] (ALEX)[address] [place] [address]Hmgfoqxes [Moles/Vol]3.8 mmol/LNormal 3.5-5.3UnWayne HealthCare Main CampusComment on above:Performed By: #### 16443-0 ####WIL HOLBROOK (053142)[facility] (ALEX)[address] [place] [address]Nkyycyd [Mass/Vol]5.5 g/dLLow6.4-8.2 [facility] HospitalComment on above:Performed By: #### 40152-3 ####WIL Villalobos'VANDANA (140525)[facility] (ALEX)[address] [place], [place] [address]Ggagxa [Moles/Vol]141 mmol/XBbsvfp661-829NipqujlavqWayne HealthCare Main CampusComment on above:Performed By: #### 27139-7 ####WIL O'VANDANA (600581)[facility] (ALEX)[address] [place], [place] [address]Bqin nitrogen [Mass/Vol]11 mg/dLNormal04-24[facility] HospitalComment on above:Performed By: #### 88425-7 ####WIL O'VANDANA (945155)[facility] (ALEX)[address] [place], [place] [address]AIX shape Nom (Bld)on 43-50-5398Ycyi cells LM Ql (Bld)[facility] Medical CenterComment on above:Performed By: #### 52487-0 ####WIL Villalobos'VANDANA (566259)[facility] (ALEX)[address] [place], [place] [address]Bvofwahfxe LM Ql (Bld)[facility] ShawComment on above:Performed By: #### 24018-4 ####WIL O'VANDANA ([id number])[facility] (ALEX)[address] [place], [place] [address]Fyqqxhsgtyg Ql (Bld)[facility] ShawComment on above:Performed By: #### 74210-8 ####WIL Villalobos'VANDANA (351459)[facility] (ALEX)[address] [place] [address]Kslnxrmndu LM Ql (Bld)[facility] for RehabilitationComment on above:Performed By: #### 51354-9 ####WIL O'VANDANA (464698)[facility] (ALEX)[address] [place] [address] Polychromasia LM Ql (Bld)[facility] Comment on above:Performed By: #### 00258-5 ####WIL Villalobos'VANDANA ([id number])[facility] (ALEX)[address] [place] [address]OND morphology finding Nom (Bld)See BelowSamaritan HospitalComment on above:Performed By: #### 56311-9 ####WIL HOLBROOK (568514)[facility] (ALEX)[address] [place] [address] Schistocytes LM Ql (Bld)FewNoCleveland Clinic Lutheran Hospital Comment on above:Performed By: #### 12652-7 ####WIL HOLBROOK (094727)[facility] (ALEX)[address] [place], [place] [address]TDF W Auto Differential panel (Bld)on 35-38-4584Wbfffpnby (Bld) [#/Vol]0.00 x10*3/uLNormal 0.00-0.10[facility] HospitalComment on above:Result Comment: Automated WBC differential has been confirmed by manual smear.Performed By: #### 93665-6 ####WIL HOLBROOK (237083)[facility] (ALEX)[address] [place], [place] [address]Vrvmzifuv/100 WBC (Bld)0.0 %Normal 0.0-2.0[facility] HospitalComment on above:Performed By: #### 63582-2 ####WIL HOLBROOK (532685)[facility] (ALEX)[address] [place], [place] [address]Uqzkuxbtitl (Bld) [#/Vol]0.09 x10*3/uL Normal0.00-0.70[facility] HospitalComment on above: Performed By: #### 63889-5 ####WIL Villalobos'VANDANA (115524)[facility] (ALEX)[address] [place], [place] [address]Pweesitrwgq/100 WBC (Bld)4.7 % Normal0.0-6.0[facility] HospitalComment on above: Performed By: #### 97570-7 ####WIL HOLBROOK (057741)[facility] (ALEX)[address] [place], [place] [address]Hhmqolftgmz distribution width (RBC) [Ratio]17.7 %High11.5-14.5[facility] Comment on above:Performed By: #### 00015-0 ####WIL Villalobos'VANDANA (350671)[facility] (ALEX)[address] [place], [place] [address]Lkivnpdosj (Bld) [Volume fraction]28.1 %Low36.0-46.0UnWayne HealthCare Main CampusComment on above:Performed By: #### 89054-9 ####WIL Villalobos'VANDANA (779637)[facility] (ALEX)[address] [place] [address]Ajumlsfhdp (Bld) [Mass/Vol]8.4 g/dLLow12.0-16.0UnWayne HealthCare Main CampusComment on above:Performed By: #### 36996-9 ####WIL HOLBROOK (824883)[facility] (ALEX)[address] [place] [address]Opshmyim granulocytes (Bld) [#/Vol]0.02 x10*3/uLNormal0.00-0.70UnWayne HealthCare Main CampusComment on above:Performed By: #### 40680-1 ####WIL Villalobos'VANDANA (483881)[facility] (ALEX)[address] [place] [address]Dxyzvgss granulocytes/100 WBC (Bld)1.0 %High0.0-0.9UnWayne HealthCare Main CampusComment on above:Result Comment: Immature Granulocyte Count (IG) includes promyelocytes, myelocytes and metamyelocytes but does not include bands. Percent differential counts (%) should be interpreted in the context of the absolute cell counts (cells/UL).Performed By: #### 55266-8 ####WIL HOLBROOK (020535)[facility] (ALEX)[address] [place], [place] [address]Xvsaeltqmqr (Bld) [#/Vol]0.59 x10*3/uLLow1.20-4.80 [facility] HospitalComment on above:Performed By: #### 16254-1 ####WIL HOLBROOK (208279)[facility] (ALEX)[address] [place], [place] [address]Ekbpnedxrii/100 WBC (Bld)30.6 %Hacpsx29.0-44.0 [facility] HospitalComment on above:Performed By: #### 50593-0 ####WIL HOLBROOK (146625)[facility] (ALEX)[address] [place], [place] [address]XFW (RBC) [Entitic mass]25.1 pgLow26.0-34.0 [facility] HospitalComment on above:Performed By: #### 05153-5 ####WIL HOLBROOK ([id number])[facility] (ALEX)[address] [place], [place] [address]QJZL (RBC) [Mass/Vol]29.9 g/dLLow32.0-36.0 [facility] HospitalComment on above:Performed By: #### 85567-1 ####WIL HOLBROOK (487267)[facility] (ALEX)[address] [place], [place] [address]IBT (RBC) [Entitic vol]84 qCCvjxkr78-201JoiaubehnsWayne HealthCare Main CampusComment on above:Performed By: #### 58595-8 ####WIL HOLBROOK (369359)[facility] (ALEX)[address] [place], [place] [address]Agropmdnq (Bld) [#/Vol]0.31 x10*3/uLNormal0.10-1.00 [facility] HospitalComment on above:Performed By: #### 77677-1 ####WIL HOLBROOK (085893)[facility] (ALEX)[address] [place] [address]Bvrhmhwuf/100 WBC (Bld)16.1 %Normal2.0-10.0 [facility] HospitalComment on above:Performed By: #### 67070-9 ####WIL HOLBROOK (344502)[facility] (ALEX)[address] [place] [address]Opoudqbervn (Bld) [#/Vol]0.92 x10*3/uLLow1.20-7.70 [facility] HospitalComment on above:Result Comment: Percent differential counts (%) should be interpreted in the context of the absolute cell counts (cells/uL).Performed By: #### 91298-6 ####WIL HOLBROOK (119076)[facility] (ALEX)[address] [place] [address] Neutrophils/100 WBC (Bld)47.6 %Npyaue00.0-80.0UnWayne HealthCare Main CampusComment on above:Performed By: #### 14697-7 ####WIL HOLBROOK (655890)[facility] (ALEX)[address] [place] [address] Nucleated RBC/100 WBC (Bld) [Ratio]0.0 /100 WBCsNormal0.0-0.0UnWayne HealthCare Main CampusComment on above:Performed By: #### 90819-0 ####WIL HOLBROOK (603751)[facility] (ALEX)[address] [place] [address]Unibqkrre (Bld) [#/Vol]44 x10*3/sQFtf941-410YfnobigzdgWayne HealthCare Main CampusComment on above:Performed By: #### 47589-5 ####WIL HOLBROOK (762934)[facility] (ALEX)[address] [place], [place] [address]SXO (Bld) [#/Vol]3.35 x10*6/uLLow4.00-5.20[facility] HospitalComment on above:Performed By: #### 86019-5 ####WIL HOLBROOK (751281)[facility] (ALEX)[address] [place], [place] [address]RDU (Bld) [#/Vol]1.9 x10*3/uLLow4.4-11.3[facility] HospitalComment on above:Performed By: #### 74931-2 ####WIL HOLBROOK ([id number])[facility] (ALEX)[address] [place] [address]Pirxvkfklzvvu metabolic 2000 panelon 79-73-0685Jlxfuiv BCP dye [Mass/Vol]3.3 g/dLLow3.4-5.0[facility] Comment on above:Performed By: #### 39504-0 ####WIL HOLBROOK (367265)[facility] (ALEX)[address] [place], [place] [address]ZNF [Catalytic activity/Vol]103 U/YOtfdvq47-393BwnramvmuyGreene Memorial HospitalComment on above:Performed By: #### 13390-2 ####WIL HOLBROOK (567954)[facility] (ALEX)[address] [place] [address] ALT With P-5'-P [Catalytic activity/Vol]22 U/LNormal7-45[facility] HospitalComment on above:Result Comment: Patients treated with Sulfasalazine may generate falsely decreased results for ALT.Performed By: #### 94444-9 ####WIL HOLBROOK (460891)[facility] (ALEX)[address] [place], [place] [address]Itjpe gap [Moles/Vol]11 mmol/EEhmcoq73-22OvdoixdyqrWayne HealthCare Main CampusComment on above:Performed By: #### 85702-0 ####WIL HOLBROOK (141785)[facility] (ALEX)[address] [place], [place] [address]BYM With P-5'-P [Catalytic activity/Vol]32 U/LNormal9-39 [facility] HospitalComment on above:Performed By: #### 79007-3 ####WIL HOLBROOK (312333)[facility] (ALEX)[address] [place], [place] [address]Sefbtywgn [Mass/Vol]1.0 mg/dLNormal0.0-1.2 [facility] HospitalComment on above:Performed By: #### 58201-9 ####WIL HOLBROOK (746155)[facility] (ALEX)[address] [place], [place] [address]Fbmgzzu [Mass/Vol]8.4 mg/dLLow8.6-10.3UnWayne HealthCare Main CampusComment on above:Performed By: #### 21721-7 ####WIL HOLBROOK (137646)[facility] (ALEX)[address] [place] [address]Eiqjgbil [Moles/Vol]107 mmol/PFjqfpr09-070KouvjxhonwWayne HealthCare Main CampusComment on above:Performed By: #### 78739-1 ####WIL HOLBROOK (705664)[facility] (ALEX)[address] [place], [place] [address]UW7 [Moles/Vol]27 mmol/LHjcfbm99-67SkdozrwmmhWayne HealthCare Main CampusComment on above:Performed By: #### 54636-8 ####WIL HOLBROOK (725862)[facility] (ALEX)[address] [place] [address]Zsoyeddaav [Mass/Vol]0.50 mg/dLNormal0.50-1.05UnWayne HealthCare Main CampusComment on above:Performed By: #### 12653-4 ####WIL HOLBROOK (318801)[facility] (ALEX)[address] [place] [address]OBN/1.73 sq M.predicted MDRD (S/P/Bld) [Vol rate/Area]mL/min/{1.73_m2} Normal>60UnWayne HealthCare Main CampusComment on above:Result Comment: Calculations of estimated GFR are performed using the 2020 CKD-EPI Study Refit equation without the race variable for the IDMS-Traceable creatinine methods.https://jasn.asnjournals.org/content/early//ASN.9750398331 Performed By: #### 71583-3 ####WIL HOLBROOK (949810)[facility] (ALEX)[address] [place], [place] [address]Lbzrzaq [Mass/Vol]113 mg/dLHigh 74-99UnWayne HealthCare Main CampusComment on above:Performed By: #### 37130-9 ####WIL HOLBROOK (396581)[facility] (ALEX)[address] [place] [address]Flsvabhta [Moles/Vol]3.9 mmol/LNormal 3.5-5.3UnWayne HealthCare Main CampusComment on above:Performed By: #### 95696-2 ####WIL HOLBROOK ([id number])[facility] (ALEX)[address] [place], [place] [address]Qbcxgbj [Mass/Vol]5.2 g/dLLow6.4-8.2 [facility] HospitalComment on above:Performed By: #### 14527-5 ####WIL HOLBROOK (560573)[facility] (ALEX)[address] [place] [address]Oxyomr [Moles/Vol]141 mmol/MNxotpz890-401Apndwqkzcz Hospitals Asif Medical CenterComment on above:Performed By: #### 98050-3 ####WIL HOLBROOK (889630)[facility] (ALEX)[address] [place], [place] [address]Mbmz nitrogen [Mass/Vol]11 mg/dLNormal6-23[facility] HospitalComment on above:Performed By: #### 22510-0 ####WIL HOLBROOK (699653)[facility] (ALEX)[address] [facility] [address]LNFDDVXRKVQCQVO (IGG, IGA, IGM)on 08-66-3447GnL [Mass/Vol] mg/uFRhh51-532YxfychjheaGreene Memorial HospitalComment on above: Order Comment: MONOCLONAL PROTEINS MAY CAUSE FALSELY LOWRESULTS IN THIS ASSAY. SERUM PROTEINELECTROPHORESIS SHOULD BE DONE THEFIRST TEST TO EVALUATE MONOCLONAL GAMMOPATHY.Performed By: #### IGS ####ARNULFO Roger ([id number])[facility] ([facility])[address] [place], [place] [address]LfD [Mass/Vol]678 mg/mWHbv239-8273MakyghcdvnGreene Memorial HospitalComment on above: Order Comment: MONOCLONAL PROTEINS MAY CAUSE FALSELY LOWRESULTS IN THIS ASSAY. SERUM PROTEINELECTROPHORESIS SHOULD BE DONE THEFIRST TEST TO EVALUATE MONOCLONAL GAMMOPATHY.Performed By: #### IGS ####ARNULFO Roger ([id number])[facility] ([facility])[address] [place], [place] [address]DoJ [Mass/Vol]mg/dL Fbf52-444ChrcbsgjqyGreene Memorial HospitalComment on above:Order Comment: MONOCLONAL PROTEINS MAY CAUSE FALSELY LOWRESULTS IN THIS ASSAY. SERUM PROTEINELECTROPHORESIS SHOULD BE DONE THEFIRST TEST TO EVALUATE MONOCLONAL GAMMOPATHY.Performed By: #### IGS ####ARNULFO GARCIA L ([id number])[facility] ([facility])[address] [place], [place] [address]Cpgekyqkxdlabf light chains.free panel (S)on 31-72-4306Hoirbdtmutngnh light chains.kappa [Mass/Vol]<0.08Low 0.33-1.94[facility] HospitalComment on above:Order Comment: Undetected antigen excess is a rare event but cannot beexcluded. If these free lightchain results do not agreewith other clinical or laboratory findings, or if thesample is from a patient that has previously demonstratedantigen excess, the result must be checked by retestingat a higher sample dilution. Results should always beinterpreted in conjunction with other laboratory testsand clinical evidence; any anomalies should be discussedwith the testing laboratory.Performed By: #### 63927-9 ####ARNULFO Roger ([id number])[facility] ([facility])[address] [place] [address]Atxugvcpoxhhqk light chains.kappa/Immunoglobulin light chains.lambda (S) [Mass ratio]Normal [facility] HospitalComment on above:Order Comment: Undetected antigen excess is a rare event but cannot beexcluded. If these free lightchain results do not agreewith other clinical or laboratory findings, or if thesample is from a patient that has previously demonstratedantigen excess, the result must be checked by retestingat a higher sample dilution. Results should always beinterpreted in conjunction with other laboratory testsand clinical evidence; any anomalies should be discussedwith the testing laboratory.Result Comment: One or more analytes used in this calculationis outside of the analytical measurement range.Calculation cannot be performed.Performed By: #### 53069-4 ####ARNULFO Roger ([id number])[facility] ([facility])[address] [place] [address]Isrlcsouvlajzt light chains.lambda [Mass/Vol]<0.17Low 0.57-2.63UnWayne HealthCare Main CampusComment on above:Order Comment: Undetected antigen excess is a rare event but cannot beexcluded. If these free lightchain results do not agreewith other clinical or laboratory findings, or if thesample is from a patient that has previously demonstratedantigen excess, the result must be checked by retestingat a higher sample dilution. Results should always beinterpreted in conjunction with other laboratory testsand clinical evidence; any anomalies should be discussedwith the testing laboratory.Performed By: #### 95676-5 ####ARNULFO Roger ([id number])[facility] ([facility])[address] [place], [place] [address]Mwpkqqehl 4 Protein [Mass/Vol]5.0 g/dLLow6.4-8.2[facility] HospitalComment on above:Performed By: #### 2885-2 ####ARNULFO Roger ([id number])[facility] ([facility])[address] [place], [place] [address]Ybqemks electrophoresis panelon [id number] [Mass/Vol]2.9 g/dLLow3.4-5.0UnWayne HealthCare Main CampusComment on above:Performed By: #### 51817-3 ####ARNULFO Roger ([id number])[facility] ([facility])[id number] [place] [address]HMNPS 1 GLOBULIN0.3 g/dLNormal0.2-0.6UnWayne HealthCare Main CampusComment on above:Performed By: #### 74832-9 ####ARNULFO Roger ([id number])[facility] ([facility])[address] [place], [place] [address]QMRKG 2 GLOBULIN0.6 g/dLNormal0.4-1.1UnWay[facility] Campus Comment on above:Performed By: #### 81857-4 ####ARNULFO Roger ([id number])[facility] ([facility])[address] [place], [place] [address]PCOO GLOBULIN0.6 g/dLNormal0.5-1.2UnWayne HealthCare Main CampusComment on above: Performed By: #### 26513-9 ####ARNULFO Roger ([id number])[facility] ([facility])[address] [place], [place] [address]FWIPK GLOBULIN0.6 g/dLNormal0.5-1.4UnWayne HealthCare Main CampusComment on above:Performed By: #### 52001-2 ####ARNULFO Roger ([id number])[facility] ([facility])[address] [facility] [place] [address]EIMT REVIEW-SERUM PROTEIN ELECTROPHORESISReviewed and approved by CASS FREEDMAN on 02/19/24 at 10:46 AM.[facility]aritan HospitalComment on above:Performed By: #### 55950-3 ####ARNULFO Roger ([id number])[facility] ([facility])[address] [facility] [facility], [place] [address]UMOZZVI ELECTROPHORESIS COMMENTHypoalbuminemia.[facility]aritan HospitalComment on above:Performed By: #### 72611-5 ####ARNULFO Roger ([id number])[facility] ([facility])[address] [facility], [place] [address]USC shape Nom (Bld)on 81-46-5810Iommzpcurg LM Ql (Bld)[facility] for RehabilitationComment on above:Performed By: #### 96024-7 ####WIL Villalobos'VANDANA ([id number])[facility] (ALEX)[address] [place] [address]Wpzkacbkpq LM Ql (Bld)[facility] for RehabilitationComment on above:Performed By: #### 08878-1 ####WIL Villalobos'VANDANA ([id number])[facility] (ALEX)[address] [place] [address] Polychromasia LM Ql (Bld)[facility] Comment on above:Performed By: #### 31592-5 ####WIL Villalobos'VANDANA ([id number])[facility] (ALEX)[address] [place], [place] [address]DHX morphology finding Nom (Bld)See [facility] HospitalComment on above:Performed By: #### 05604-9 ####WIL Villalobos'VANDANA ([id number])[facility] (ALEX)[address] [place] [address] Schistocytes LM Ql (Bld)[facility] Comment on above:Performed By: #### 60054-2 ####WIL HOLBROOK ([id number])[facility] (ALEX)[address] [place], [place] [address]HZX W Auto Differential panel (Bld)on 15-73-5857Nmhlufmjy (Bld) [#/Vol]0.00 x10*3/uLNormal 0.00-0.10[facility] HospitalComment on above:Performed By: #### 74445-5 ####WIL HOLBROOK ([id number])[facility] (ALEX)[address] [place], [place] [address]Unihmdwgi/100 WBC (Bld)0.0 %Normal 0.0-2.0[facility] HospitalComment on above:Performed By: #### 80746-2 ####WIL HOLBROOK ([id number])[facility] (ALEX)[address] [place], [place] [address]Qfdxcedcsfe (Bld) [#/Vol]0.09 x10*3/uL Normal0.00-0.70[facility] HospitalComment on above: Performed By: #### 87033-8 ####WIL HOLBROOK ([id number])[facility] (ALEX)[address] [place], [place] [address]Uqbpxejawew/100 WBC (Bld)4.4 % Normal0.0-6.0UnWayne HealthCare Main CampusComment on above: Performed By: #### 18809-6 ####WIL HOLBROOK ([id number])[facility] (ALEX)[address] [place], [place] [address]Ypebgqyysbp distribution width (RBC) [Ratio]17.5 %High11.5-14.5[facility] Comment on above:Performed By: #### 13328-7 ####WIL HOLBROOK ([id number])[facility] (ALEX)[address] [place], [place] [address]Ugrxcetbom (Bld) [Volume fraction]27.5 %Low36.0-46.0UnWayne HealthCare Main CampusComment on above:Performed By: #### 39573-4 ####WIL Villalobos'VANDANA ([id number])[facility] (ALEX)[address] [place], [place] [address]Tyfdiifcnp (Bld) [Mass/Vol]8.4 g/dLLow12.0-16.0UnWayne HealthCare Main CampusComment on above:Performed By: #### 98581-8 ####WIL Villalobos'VANDANA ([id number])[facility] (ALEX)[address] [place], [place] [address]Dbgjvznk granulocytes (Bld) [#/Vol]0.01 x10*3/uLNormal0.00-0.70UnWayne HealthCare Main CampusComment on above:Performed By: #### 88550-5 ####WIL Villalobos'VANDANA ([id number])[facility] (ALEX)[address] [place], [place] [address]Jcfwxgfr granulocytes/100 WBC (Bld)0.5 %Normal0.0-0.9UnWayne HealthCare Main CampusComment on above:Result Comment: Immature Granulocyte Count (IG) includes promyelocytes, myelocytes and metamyelocytes but does not include bands. Percent differential counts (%) should be interpreted in the context of the absolute cell counts (cells/UL).Performed By: #### 91538-3 ####WIL Villalobos'VANDANA ([id number])[facility] (ALEX)[address] [place], [place] [address]Muunqvliueg (Bld) [#/Vol]0.56 x10*3/uLLow1.20-4.80 [facility] HospitalComment on above:Performed By: #### 82315-3 ####WIL HOLBROOK ([id number])[facility] (ALEX)[address] [place], [place] [address]Mtbqljxyvfw/100 WBC (Bld)27.2 %Opzcjt11.0-44.0 [facility] HospitalComment on above:Performed By: #### 02992-0 ####WIL Villalobos'VANDANA ([id number])[facility] (ALEX)[address] [place], [place] [address]ZXD (RBC) [Entitic mass]26.0 ohAjozub91.0-34.0 [facility] HospitalComment on above:Performed By: #### 27959-5 ####WIL Villalobos'VANDANA ([id number])[facility] (ALEX)[address] [place], [place] [address]KPFH (RBC) [Mass/Vol]30.5 g/dLLow32.0-36.0 [facility] HospitalComment on above:Performed By: #### 97308-2 ####WIL Villalobos'VANDANA ([id number])[facility] (ALEX)[address] [place], [place] [address]GII (RBC) [Entitic vol]85 eAGddrgo23-311TreypwfniyWayne HealthCare Main CampusComment on above:Performed By: #### 07334-4 ####WIL Villalobos'VANDANA ([id number])[facility] (ALEX)[address] [place], [place] [address]Xrdypxnhf (Bld) [#/Vol]0.35 x10*3/uLNormal0.10-1.00 [facility] HospitalComment on above:Performed By: #### 18046-0 ####WIL Villalobos'VANDANA (018430)[facility] (ALEX)[address] [place], [place] [address]Dsfsfwvsp/100 WBC (Bld)17.0 %Normal2.0-10.0 [facility] HospitalComment on above:Performed By: #### 73178-2 ####WIL Villalobos'VANDANA ([id number])[facility] (ALEX)[address] [place] [address]Mwgetjtumhq (Bld) [#/Vol]1.05 x10*3/uLLow1.20-7.70 [facility] HospitalComment on above:Result Comment: Percent differential counts (%) should be interpreted in the context of the absolute cell counts (cells/uL).Performed By: #### 95387-9 ####WIL Villalobos'VANDANA ([id number])[facility] (ALEX)[address] [place] [address] Neutrophils/100 WBC (Bld)50.9 %Wjqtkb29.0-80.0[facility] HospitalComment on above:Performed By: #### 72661-0 ####WIL Villalobos'VANDANA ([id number])[facility] (ALEX)[address] [place] [address] Nucleated RBC/100 WBC (Bld) [Ratio]0.0 /100 WBCsNormal0.0-0.0[facility] HospitalComment on above:Performed By: #### 97848-9 ####WIL Villalobos'VANDANA (107003)[facility] (ALEX)[address] [place], [place] [address]Qegfmdbwm (Bld) [#/Vol]43 x10*3/hJXye605-453KjjyuigqbyWayne HealthCare Main CampusComment on above:Performed By: #### 20664-1 ####WIL Villalobos'VANDANA (614404)[facility] (ALEX)[address] [place], [place] [address]TIA (Bld) [#/Vol]3.23 x10*6/uLLow4.00-5.20[facility] HospitalComment on above:Performed By: #### 77681-8 ####WIL Villalobos'VANDANA ([id number])[facility] (ALEX)[address] [facility] [facility] [address]DIW (Bld) [#/Vol]2.1 x10*3/uLLow4.4-11.3[facility] HospitalComment on above:Performed By: #### 05935-9 ####WIL HOLBROOK ([id number])[facility] (ALEX)[address] [facility] [address]Lhxqpeh [Mass/volume] in Serum or PlasmaOrdered By: Fabiola Marinelli on 62-09-6228Wknesyx [Mass/Vol]8.3 mg/dLLow8.6-10.3FPremier HealthCalcium [Mass/Vol]Calcium [Mass/volume] in Serum or PlasmaLow 8.6-10.3FPremier HealthCreatinine [Mass/volume] in Serum or PlasmaOrdered By: Fabiola Marinelli on 99-73-2344Bgbedecnlu [Mass/Vol]0.49 mg/dLLow 0.60-1.20[facility] HospitalCreatinine [Mass/Vol]Creatinine [Mass/volume] in Serum or PlasmaLow0.60-1.20[facility] HospitalNo Panel InformationOrdered By: Fabiola Marinelli on 06-37-6879Lkueyuhpt GFR (CKD-EPI)> 60.0 mL/MinSalem City HospitalPharmacy Creatinine Clearance (Chem 65.72[facility]> 60.0 mL/MinSalem City Hospital65.72[facility] HospitalUrea nitrogen [Mass/volume] in Serum or PlasmaOrdered By: Fabiola Marinelli on 12-28-7603Sxep nitrogen [Mass/Vol]11 mg/dL 05-26[facility] HospitalUrea nitrogen [Mass/Vol]Urea nitrogen [Mass/volume] in Serum or Plasma05-26[facility] HospitalAerobic cultureOrdered By: Fabiola Marinelli on 02-21-9500Ijosoqzz identified Aer cx Nom (Unsp spec)Aerobic cultureSalem City HospitalBacteria identified Aer cx Nom (Unsp spec)Aerobic cultureSalem City HospitalBacteria identified Aer cx Nom (Unsp spec)[facility] HospitalCryptococcus antigen levelOrdered By: Fabiola Marinelli on 82-24-8605Tvsfnnkakloy sp Ag LA Ql (S) NegativeNegativeSalem City HospitalComment on above:Performed at: [address] [id number] Director: Maxine Briones MD, Phone: [phone] sp Ag LA Ql (S)Cryptococcus antigen levelNegativeSalem City HospitalGram stain for investigation of transfusion reactionOrdered By: Fabiola Marinelli on 01-21-2024 Microscopic observation Gram stain Nom (Unsp spec)[facility] HospitalGram stain microscopyOrdered By: Fabiola Marinelli on 70-49-7170Jnsfzszdjyp observation Gram stain Nom (Unsp spec)Gram stain microscopySalem City HospitalMicroscopic observation Gram stain Nom (Unsp spec)Gram stain microscopySalem City HospitalNo Panel InformationOrdered By: Fabiola Marinelli on 01-21-2024U Histoplasma Galactomannan AntigenNegative<0.5 ng/mL [facility] HospitalComment on above:This test was developed and its performance characteristicsdetermined by [facility]. It has not been cleared orapproved by the Food and Drug Administration.Performed at: [facility] [place] [place] [address], [place] [id number] Director: Mojgan Sommers MD, Phone: [phone]<0.5 ng/mLSalem City Hospital Miscellaneous TestSee commentSalem City HospitalComment on above: See report. Scanned copy available in EMR.See [facility] W Auto Differential panel (Bld)on 64-66-4020Sioxyxnzk (Bld) [#/Vol] 0.00 x10*3/uLNormal0.00-0.10UnWayne HealthCare Main CampusComment on above:Performed By: #### 78442-3 ####WIL HOLBROOK ([id number])[facility] (ALEX)[address] [facility], [place] [address]Gdkrvaqql/100 WBC (Bld)0.0 %Normal0.0-2.0UnWayne HealthCare Main CampusComment on above:Performed By: #### 87105-4 ####WIL HOLBROOK ([id number])[facility] (ALEX)[address] [place], [place] [address]Alydevmxthh (Bld) [#/Vol] 0.08 x10*3/uLNormal0.00-0.70[facility] HospitalComment on above:Performed By: #### 13840-3 ####WIL HOLBROOK ([id number])[facility] (ALEX)[address] [place], [place] [address]Jpfbqpzmein/100 WBC (Bld)2.4 %Normal0.0-6.0[facility] HospitalComment on above:Performed By: #### 85517-1 ####WIL HOLBROOK (235457)[facility] (ALEX)[address] [place], [place] [address]Zwkjqfeehgh distribution width (RBC) [Ratio]17.6 %High11.5-14.5UnWayne HealthCare Main CampusComment on above:Performed By: #### 57200-8 ####WIL HOLBROOK (425758)[facility] (ALEX)[address] [place], [place] [address]Yxfumrijwf (Bld) [Volume fraction]30.7 %Low36.0-46.0UnWayne HealthCare Main CampusComment on above:Performed By: #### 49019-3 ####WIL HOLBROOK (858940)[facility] (ALEX)[address] [place], [place] [address]Ohagmhanta (Bld) [Mass/Vol]9.4 g/dLLow12.0-16.0[facility] HospitalComment on above:Performed By: #### 03097-0 ####WIL HOLBROOK ([id number])[facility] (ALEX)[address] [place], [place] [address]Jycnasxu granulocytes (Bld) [#/Vol]0.05 x10*3/uLNormal0.00-0.70UnWayne HealthCare Main CampusComment on above:Performed By: #### 93125-8 ####WIL HOLBROOK ([id number])[facility] (ALEX)[address] [place], [place] [address]Wwjutrld granulocytes/100 WBC (Bld)1.5 %High0.0-0.9UnWayne HealthCare Main CampusComment on above:Result Comment: Immature Granulocyte Count (IG) includes promyelocytes, myelocytes and metamyelocytes but does not include bands. Percent differential counts (%) should be interpreted in the context of the absolute cell counts (cells/UL).Performed By: #### 74554-6 ####WIL HOLBROOK ([id number])[facility] (ALEX)[address] [place], [place] [address]Qijoqehnixj (Bld) [#/Vol]0.65 x10*3/uLLow1.20-4.80 [facility] HospitalComment on above:Performed By: #### 13826-0 ####WIL HOLBROOK (717954)[facility] (ALEX)[address] [place] [address]Eabkjcbnvbw/100 WBC (Bld)19.2 %Nhtedc70.0-44.0 [facility] HospitalComment on above:Performed By: #### 38586-5 ####WIL HOLBROOK ([id number])[facility] (ALEX)[address] [place], [place] [address]OJK (RBC) [Entitic mass]25.8 pgLow26.0-34.0 [facility] HospitalComment on above:Performed By: #### 53133-9 ####WIL HOLBROOK ([id number])[facility] (ALEX)[address] [place], [place] [address]HPCW (RBC) [Mass/Vol]30.6 g/dLLow32.0-36.0 [facility] HospitalComment on above:Performed By: #### 18696-4 ####WIL HOLBROOK ([id number])[facility] (ALEX)[address] [place], [place] [address]ANA (RBC) [Entitic vol]84 tEVhemsf02-564VnugxvdrfoWayne HealthCare Main CampusComment on above:Performed By: #### 38137-4 ####WIL HOLBROOK (389986)[facility] (ALEX)[address] [place] [address]Lldhsihdz (Bld) [#/Vol]0.50 x10*3/uLNormal0.10-1.00 [facility] HospitalComment on above:Performed By: #### 49764-0 ####WIL HOLBROOK (107452)[facility] (ALEX)[address] [place] [address]Qdcpcwffj/100 WBC (Bld)14.8 %Normal2.0-10.0 [facility] HospitalComment on above:Performed By: #### 26470-2 ####WIL HOLBROOK (643014)[facility] (ALEX)[address] [place], [place] [address]Snvjbvbgqnt (Bld) [#/Vol]2.10 x10*3/uLNormal 1.20-7.70UnWayne HealthCare Main CampusComment on above:Result Comment: Percent differential counts (%) should be interpreted in the context of the absolute cell counts (cells/uL).Performed By: #### 46884-9 ####WIL HOLBROOK (858125)[facility] (ALEX)[address] [place] [address]Oofglctsagu/100 WBC (Bld)62.1 %Larody15.0-80.0UnWayne HealthCare Main CampusComment on above:Performed By: #### 17352-7 ####WIL HOLBROOK (630606)[facility] (ALEX)[address] [place] [address]Jaofnlzpf RBC/100 WBC (Bld) [Ratio]0.0 /100 WBCsNormal0.0-0.0[facility] HospitalComment on above:Performed By: #### 51166-9 ####WIL HOLBROOK (134144)[facility] (ALEX)[address] [place] [address]Oxkyvzjeu (Bld) [#/Vol]50 x10*3/kGUws663-185BtxjhqvkzlWayne HealthCare Main CampusComment on above:Performed By: #### 80448-6 ####WIL HOLBROOK (726954)[facility] (ALEX)[address] [place], [place] [address]OKX (Bld) [#/Vol]3.65 x10*6/uLLow4.00-5.20UnWayne HealthCare Main CampusComment on above:Performed By: #### 10701-0 ####WIL HOLBROOK ([id number])[facility] (ALEX)[address] [place], [place] [address]OFF (Bld) [#/Vol]3.4 x10*3/uLLow4.4-11.3[facility] HospitalComment on above:Performed By: #### 20680-2 ####WIL HOLBROOK (005976)[facility] (ALEX)[address] [place], [place] [address]DFI W Auto Differential panel (Bld)on 01-42-9337Thnwemaeu (Bld) [#/Vol]0.01 x10*3/uLNormal0.00-0.10[facility] HospitalComment on above:Performed By: #### 16824-0 ####WIL HOLBROOK ([id number])[facility] (ALEX)[address] [place] [address] Basophils/100 WBC (Bld)0.3 %Normal0.0-2.0[facility] HospitalComment on above:Performed By: #### 58985-2 ####WIL Villalobos'VANDANA ([id number])[facility] (ALEX)[address] [place], [place] [address]Vaxmyzohlec (Bld) [#/Vol]0.12 x10*3/uLNormal0.00-0.70UnWayne HealthCare Main CampusComment on above:Performed By: #### 57014-6 ####WIL Villalobos'VANDANA ([id number])[facility] (ALEX)[address] [place] [address] Eosinophils/100 WBC (Bld)3.4 %Normal0.0-6.0UnWayne HealthCare Main CampusComment on above:Performed By: #### 82536-2 ####WIL Villalobos'VANDANA ([id number])[facility] (ALEX)[address] [place] [address] Erythrocyte distribution width (RBC) [Ratio]17.4 %High11.5-14.5UnWayne HealthCare Main CampusComment on above:Performed By: #### 45684-7 ####WIL HOLBROOK (772530)[facility] (ALEX)[address] [place] [address]Ooonmvfyub (Bld) [Volume fraction]30.2 %Low36.0-46.0 [facility] HospitalComment on above:Performed By: #### 60374-5 ####WIL Villalobos'VANDANA ([id number])[facility] (ALEX)[address] [place] [address]Rxwbbpyyoh (Bld) [Mass/Vol]9.2 g/dLLow12.0-16.0 [facility] HospitalComment on above:Performed By: #### 03071-0 ####WIL Villalobos'VANDANA (696565)[facility] (ALEX)[address] [place] [address]Owletmkp granulocytes (Bld) [#/Vol]0.02 x10*3/uL Normal0.00-0.70UnWayne HealthCare Main CampusComment on above: Performed By: #### 08266-3 ####WIL HOLBROOK ([id number])[facility] (ALEX)[address] [place] [address]Vdwmiijy granulocytes/100 WBC (Bld) 0.6 %Normal0.0-0.9[facility] HospitalComment on above: Result Comment: Immature Granulocyte Count (IG) includes promyelocytes, myelocytes and metamyelocytes but does not include bands. Percent differential counts (%) should be interpreted in the context of the absolute cell counts (cells/UL).Performed By: #### 57407-6 ####WIL HOLBROOK ([id number])[facility] (ALEX)[address] [place] [address]Daxiaseocrs (Bld) [#/Vol]0.62 x10*3/uLLow1.20-4.80[facility] Comment on above:Performed By: #### 04320-0 ####WIL HOLBROOK (775724)[facility] (ALEX)[address] [place] [address] Lymphocytes/100 WBC (Bld)17.8 %Bwuant33.0-44.0[facility] HospitalComment on above:Performed By: #### 99519-7 ####WIL HOLBROOK (810896)[facility] (ALEX)[address] [place] [address] MCH (RBC) [Entitic mass]25.9 pgLow26.0-34.0UnWayne HealthCare Main CampusComment on above:Performed By: #### 05226-6 ####WIL HOLBROOK (738663)[facility] (ALEX)[address] [place] [address] MCHC (RBC) [Mass/Vol]30.5 g/dLLow32.0-36.0[facility] HospitalComment on above:Performed By: #### 74171-8 ####WIL HOLBROOK ([id number])[facility] (ALEX)[address] [place] [address] MCV (RBC) [Entitic vol]85 xSUpkqkt95-448VzfevktfbhWayne HealthCare Main CampusComment on above:Performed By: #### 15696-7 ####WIL Villalobos'VANDANA (513156)[facility] (ALEX)[address] [place] [address]Ufmyotycv (Bld) [#/Vol]0.45 x10*3/uLNormal0.10-1.00UnWayne HealthCare Main CampusComment on above:Performed By: #### 95069-7 ####WIL HOLBROOK ([id number])[facility] (ALEX)[address] [place] [address] Monocytes/100 WBC (Bld)12.9 %Normal2.0-10.0UnWayne HealthCare Main CampusComment on above:Performed By: #### 88017-6 ####WIL HOLBROOK (656743)[facility] (ALEX)[address] [place] [address] Neutrophils (Bld) [#/Vol]2.27 x10*3/uLNormal1.20-7.70UnWayne HealthCare Main CampusComment on above:Result Comment: Percent differential counts (%) should be interpreted in the context of the absolute cell counts (cells/uL).Performed By: #### 95344-9 ####WIL HOLBROOK ([id number])[facility] (ALEX)[address] [place] [address]Ljpgsbqptub/100 WBC (Bld)65.0 %Svoyxi80.0-80.0UnWayne HealthCare Main CampusComment on above:Performed By: #### 26982-9 ####WIL HOLBROOK ([id number])[facility] (ALEX)[address] [place] [address]Cscgmcysn RBC/100 WBC (Bld) [Ratio]0.0 /100 WBCsNormal0.0-0.0[facility] HospitalComment on above:Performed By: #### 55146-1 ####WIL HOLBROOK ([id number])[facility] (ALEX)[address] [place] [address]Hoqxrzdeq (Bld) [#/Vol]53 x10*3/mUCyx711-560UkcfwihcqeGreene Memorial Hospital Comment on above:Performed By: #### 80097-2 ####WIL HOLBROOK (135787)[facility] (ALEX)[address] [place], [place] [address]KIB (Bld) [#/Vol]3.55 x10*6/uLLow4.00-5.20[facility] Comment on above:Performed By: #### 30662-3 ####WIL HOLBROOK (978012)[facility] (ALEX)[address] [place] [address]OCQ (Bld) [#/Vol]3.5 x10*3/uLLow4.4-11.3[facility] Comment on above:Performed By: #### 15358-4 ####WIL HOLBROOK (101746)[facility] (ALEX)[address] [place] [address] Immunoglobulin light chains.free panel (S)Ordered By: Nava Carr on 12-30-2023 Immunoglobulin light chains.kappa [Mass/Vol]mg/dLLow0.33 - 1.94 mg/dLKettering Health PrebleImmunoglobulin light chains.kappa/Immunoglobulin light chains.lambda (S) [Mass ratio][facility] PrebleComment on above: One or more analytes used in this calculation is outside of the analytical measurement range. Calculation cannot be performed. Immunoglobulin light chains.lambda [Mass/Vol]mg/dLLow0.57 - 2.63 mg/dLKettering Health PrebleInterpretation and review of laboratory resultsAbFirelands Regional Medical Center South CampusUndetected antigen excess is a rare event but cannot be excluded. If these free light chain results do not agree with other clinical or laboratory findings, or if the sample is from a patient that has previously demonstrated antigen excess, the result must be checked by retesting at a higher sample dilution. Results should always be interpreted in conjunction with other laboratory tests and clinical evidence; any anomalies should be discussed with the testing laboratory.[facility] W Auto Differential panel (Bld)on 72-12-7785Myuaqkxya (Bld) [#/Vol]0.00 10*3/[facility] HospitalBasophils/100 WBC (Bld)0.0 %0.0 - 2.0 %[facility] PrebleEosinophils (Bld) [#/Vol] 0.07 10*3/[facility] HospitalEosinophils/100 WBC (Bld)2.7 %0.0 - 6.0 %[facility] PrebleErythrocyte distribution width (RBC) [Ratio]17.2 %High11.5 - 14.5 %[facility] PrebleHematocrit (Bld) [Volume fraction]29.4 %Low36.0 - 46.0 %[facility] Hemoglobin (Bld) [Mass/Vol]9.1 g/dLLow12.0 - 16.0 g/dLUnCentervilleImmaadams county regional medical center granulocytes (Bld) [#/Vol]0.04 10*3/[facility] granulocytes/100 WBC (Bld)1.5 %High0.0 - 0.9 %[facility] PrebleComment on above:Immature Granulocyte Count (IG) includes promyelocytes, myelocytes and metamyelocytes but does not include bands. Percent differential counts (%) should be interpreted in the context of the absolute c ell counts (cells/UL).Interpretation and review of laboratory resultsAbFirelands Regional Medical Center South CampusLymphocytes (Bld) [#/Vol]0.61 10*3/uLLow [facility] PrebleLymphocytes/100 WBC (Bld)23.1 %13.0 - 44.0 % [facility] CenterH (RBC) [Entitic mass]26.7 pg26.0 - 34.0 pg [facility] CenterHC (RBC) [Mass/Vol]31.0 g/dLLow32.0 - 36.0 g/dLUnCentervilleMCV (RBC) [Entitic vol]86 fL80 - 100 fL [facility]bleMonocytes (Bld) [#/Vol]0.40 10*3/[facility] HospitalMonocytes/100 WBC (Bld)15.2 %2.0 - 10.0 %[facility] PrebleNeutrophils (Bld) [#/Vol]1.52 10*3/[facility] HospitalComment on above:Percent differential counts (%) should be interpreted in the context of the absolute cell counts (cells/uL). Neutrophils/100 WBC (Bld)57.5 %40.0 - 80.0 %[facility] Nucleated RBC/100 WBC (Bld) [Ratio]0.0 %[facility] Platelets (Bld) [#/Vol]59 10*3/[facility] HospitalRBC (Bld) [#/Vol]3.41 10*6/[facility] HospitalWBC (Bld) [#/Vol]2.6 10*3/[facility] HospitalUnCenterville Basophils (Bld) [#/Vol]0.00 x10*3/uLNormal0.00-0.10[facility] HospitalComment on above:Performed By: #### [id number] ####WIL HOLBROOK ([id number])[facility] (ALEX)[address] [place], [place] [address]Megqgiewj/100 WBC (Bld)0.0 %Normal0.0-2.0UnWayne HealthCare Main CampusComment on above:Performed By: #### [id number] ####WIL HOLBROOK ([id number])[facility] (ALEX)[address] [place] [address] Eosinophils (Bld) [#/Vol]0.07 x10*3/uLNormal0.00-0.70UnWayne HealthCare Main CampusComment on above:Performed By: #### [id number] ####WIL HOLBROOK ([id number])[facility] (ALEX)[address] [place], [place] [address]Gqbmhkfoljs/100 WBC (Bld)2.7 %Normal0.0-6.0[facility] HospitalComment on above:Performed By: #### [id number] ####WIL HOLBROOK ([id number])[facility] (ALEX)[address] [place], [place] [address]Txwtygjtplp distribution width (RBC) [Ratio]17.2 %High11.5-14.5 [facility] HospitalComment on above:Performed By: #### [id number] ####WIL HOLBROOK ([id number])[facility] (ALEX)[address] [place], [place] [address]Hefainljig (Bld) [Volume fraction]29.4 %Low 36.0-46.0UnWayne HealthCare Main CampusComment on above:Performed By: #### 36125-6 ####WIL HOLBROOK ([id number])[facility] (ALEX)[address] [place], [place] [address]Kwvnazlnpc (Bld) [Mass/Vol]9.1 g/dLLow 12.0-16.0UnWayne HealthCare Main CampusComment on above:Performed By: #### 35895-7 ####WIL HOLBROOK ([id number])[facility] (ALEX)[address] [place], [place] [address]Ostlzdst granulocytes (Bld) [#/Vol]0.04 x10*3/uLNormal0.00-0.70[facility] HospitalComment on above:Performed By: #### 72512-1 ####WIL HOLBROOK ([id number])[facility] (ALEX)[address] [place], [place] [address]Ylgzkbfl granulocytes/100 WBC (Bld)1.5 %High0.0-0.9UnWayne HealthCare Main CampusComment on above:Result Comment: Immature Granulocyte Count (IG) includes promyelocytes, myelocytes and metamyelocytes but does not include bands. Percent differential counts (%) should be interpreted in the context of the absolute cell counts (cells/UL).Performed By: #### 23768-3 ####WIL HOLBROOK ([id number])[facility] (ALEX)[address], [place] [address]Lmahqtdhrmb (Bld) [#/Vol]0.61 x10*3/uLLow1.20-4.80[facility] Comment on above:Performed By: #### 41083-2 ####WIL HOLBROOK ([id number])[facility] (ALEX)[address] [place] [address] Lymphocytes/100 WBC (Bld)23.1 %Guipjh82.0-44.0[facility] HospitalComment on above:Performed By: #### 93531-4 ####WIL HOLBROOK ([id number])[facility] (ALEX)[address] [place] [address] MCH (RBC) [Entitic mass]26.7 wjMmcfaf50.0-34.0[facility] HospitalComment on above:Performed By: #### 79082-6 ####WIL HOLBROOK ([id number])[facility] (ALEX)[address] [place] [address] MCHC (RBC) [Mass/Vol]31.0 g/dLLow32.0-36.0UnWayne HealthCare Main CampusComment on above:Performed By: #### 98140-9 ####WIL HOLBROOK ([id number])[facility] (ALEX)[address] [place] [address] MCV (RBC) [Entitic vol]86 sMLitiyv29-417JoeacxbwkgGreene Memorial HospitalComment on above:Performed By: #### 92833-0 ####WIL Villalobos'VANDANA ([id number])[facility] (ALEX)[address], [place] [address]Ibeulivcx (Bld) [#/Vol]0.40 x10*3/uLNormal0.10-1.00[facility] HospitalComment on above:Performed By: #### 58350-3 ####WIL Villalobos'VANDANA ([id number])[facility] (ALEX)[address] [place] [address] Monocytes/100 WBC (Bld)15.2 %Normal2.0-10.0UnWayne HealthCare Main CampusComment on above:Performed By: #### 44346-5 ####WIL Villalobos'VANDANA ([id number])[facility] (ALEX)[address] [place] [address] Neutrophils (Bld) [#/Vol]1.52 x10*3/uLNormal1.20-7.70[facility] HospitalComment on above:Result Comment: Percent differential counts (%) should be interpreted in the context of the absolute cell counts (cells/uL).Performed By: #### 37908-6 ####WIL Villalobos'VANDANA ([id number])[facility] (ALEX)[address] [place], [place] [address]Tqxqvrmlaxk/100 WBC (Bld)57.5 %Lqzdsp99.0-80.0[facility] HospitalComment on above:Performed By: #### 45408-7 ####WIL HOLBROOK ([id number])[facility] (ALEX)[address] [place], [place] [address]Uendxmuvp RBC/100 WBC (Bld) [Ratio]0.0 /100 WBCsNormal0.0-0.0[facility] HospitalComment on above:Performed By: #### 18997-6 ####WIL HOLBROOK ([id number])[facility] (ALEX)[address], [place] [address]Zrkhkcrwe (Bld) [#/Vol]59 x10*3/gVTvt943-806VskitgudldWayne HealthCare Main Campus Comment on above:Performed By: #### 18696-6 ####WIL HOLBROOK ([id number])[facility] (ALEX)[address] [place], [place] [address]DZF (Bld) [#/Vol]3.41 x10*6/uLLow4.00-5.20[facility] Comment on above:Performed By: #### 53965-5 ####WIL HOLBROOK ([id number])[facility] (ALEX)[address], [place] [address]IRO (Bld) [#/Vol]2.6 x10*3/uLLow4.4-11.3[facility] Comment on above:Performed By: #### 04542-6 ####WIL HOLBROOK ([id number])[facility] (ALEX)[address] [place], [place] [address]Hasiswwscybvz metabolic 2000 panelon 58-68-1442Qbhwfds BCP dye [Mass/Vol]3.3 g/dLLow3.4 - 5.0 g/dLKettering Health PrebleALP [Catalytic activity/Vol]94 U/L33 - 136 U/[facility] HospitalALT With P-5'-P [Catalytic activity/Vol]14 U/L7 - 45 U/[facility] HospitalComment on above:Patients treated with Sulfasalazine may generate falsely decreased results for ALT.Anion gap [Moles/Vol]13 mmol/L10 - 20 mmol/[facility] HospitalAST With P-5'-P [Catalytic activity/Vol]29 U/L9 - 39 U/[facility] Bilirubin [Mass/Vol]1.2 mg/dL0.0 - 1.2 mg/dLKettering Health Preble Calcium [Mass/Vol]8.4 mg/dLLow8.6 - 10.3 mg/dLUnCenterville Chloride [Moles/Vol]106 mmol/L98 - 107 mmol/[facility] CO2 [Moles/Vol]25 mmol/L21 - 32 mmol/[facility] Creatinine [Mass/Vol]0.58 mg/dL0.50 - 1.05 mg/dLUnCentervilleeGFR- PINFUniMount St. Mary HospitalComment on above: Calculations of estimated GFR are performed using the 2020 CKD-EPI Study Refit equation without therace variable for the IDMS-Traceable creatinine methods. https://jasn.asnjournals.org/content/early//ASN.6023869925 Glucose [Mass/Vol]109 mg/xRHssq06 - 99 mg/dLUnCenterville Interpretation and review of laboratory resultsAbnormalUMercy Health St. Joseph Warren HospitalPotassium [Moles/Vol]3.9 mmol/L3.5 - 5.3 mmol/[facility] HospitalProtein [Mass/Vol]5.2 g/dLLow6.4 - 8.2 g/dLUnCentervilleSodium [Moles/Vol]140 mmol/L136 - 145 mmol/[facility] HospitalUrea nitrogen [Mass/Vol]10 mg/dL6 - 23 mg/dLUnCentervilleUnCentervilleAlbumin BCP dye [Mass/Vol]3.3 g/dLLow 3.4-5.0UnWayne HealthCare Main CampusComment on above:Performed By: #### 10997-9 ####WIL HOLBROOK ([id number])[facility] (ALEX)[address] [place], [place] [address]GYN [Catalytic activity/Vol]94 U/L Bbiway94-950QsoulljptbWayne HealthCare Main CampusComment on above: Performed By: #### 09622-3 ####WIL HOLBROOK ([id number])[facility] (ALEX)[address], [place] [address]EGX With P-5'-P [Catalytic activity/Vol]14 U/LNormal7-45[facility] Comment on above:Result Comment: Patients treated with Sulfasalazine may generate falsely decreased results for ALT.Performed By: #### 33111-0 ####WIL HOLBROOK ([id number])[facility] (ALEX)[address], [place] [address]Mbjie gap [Moles/Vol]13 mmol/GZtyadp44-67WbcxnqdrwhGreene Memorial HospitalComment on above:Performed By: #### 32503-7 ####WIL HOLBROOK ([id number])[facility] (ALEX)[address] [place] [address] AST With P-5'-P [Catalytic activity/Vol]29 U/LNormal9-39UnWayne HealthCare Main CampusComment on above:Performed By: #### 98156-3 ####WIL HOLBROOK ([id number])[facility] (ALEX)[address], [place] [address]Cjrybmfya [Mass/Vol]1.2 mg/dLNormal0.0-1.2[facility] HospitalComment on above:Performed By: #### 27083-7 ####WIL HOLBROOK ([id number])[facility] (ALEX)[address] [place] [address] Calcium [Mass/Vol]8.4 mg/dLLow8.6-10.3[facility] HospitalComment on above:Performed By: #### 17086-1 ####WIL HOLBROOK ([id number])[facility] (ALEX)[address] [place], [place] [address]Loiqdoxq [Moles/Vol]106 mmol/YAdzdya56-153EnsmgwibgrGreene Memorial Hospital Comment on above:Performed By: #### 87590-4 ####WIL Villalobos'VANDANA ([id number])[facility] (ALEX)[address], [place] [address]TW4 [Moles/Vol]25 mmol/KYqmvuz52-36WbmnunswnbGreene Memorial Hospital Comment on above:Performed By: #### 13563-8 ####WIL O'VANDANA ([id number])[facility] (ALEX)[address], [place] [address]Xvubmlsiys [Mass/Vol]0.58 mg/dLNormal0.50-1.05[facility] Comment on above:Performed By: #### 24078-9 ####WIL Villalobos'VANDANA ([id number])[facility] (ALEX)[address] [place], [place] [address]NPF/1.73 sq M.predicted MDRD (S/P/Bld) [Vol rate/Area]mL/min/{1.73_m2}Normal>60[facility] HospitalComment on above:Result Comment: Calculations of estimated GFR are performed using the 2020 CKD-EPI Study Refit equation without the race variable for the IDMS-Traceable creatinine methods.https://jasn.asnjournals.org/content//ASN.9668537240 Performed By: #### 99474-2 ####WIL Villalobos'VANDANA ([id number])[facility] (ALEX)[address], [place] [address]Qiqquzm [Mass/Vol]109 mg/dLHigh 74-99[facility] HospitalComment on above:Performed By: #### 84997-5 ####WIL O'VANDANA ([id number])[facility] (ALEX)[address], [place] [address]Kxcysdmqi [Moles/Vol]3.9 mmol/LNormal 3.5-5.3[facility] HospitalComment on above:Performed By: #### 01216-9 ####WIL HOLBROOK ([id number])[facility] (ALEX)[address] [place], [place] [address]Axjiipl [Mass/Vol]5.2 g/dLLow6.4-8.2 [facility] HospitalComment on above:Performed By: #### 97635-1 ####WIL Villalobos'VANDANA ([id number])[facility] (ALEX)[address], [place] [address]Sixuzq [Moles/Vol]140 mmol/THtnowo378-541OazuduabttWayne HealthCare Main CampusComment on above:Performed By: #### 35709-5 ####WIL Villalobos'VANDANA ([id number])[facility] (ALEX)[address], [place] [address]Qvey nitrogen [Mass/Vol]10 mg/dLNormal6-23[facility] HospitalComment on above:Performed By: #### 88108-3 ####WIL Villalobos'VANDANA ([id number])[facility] (ALEX)[address], [place] [address]PLDNTGPJJFXUYOU (IGG, IGA, IGM)on 82-25-1044YlR [Mass/Vol] mg/iKNhf55-248YbndiiwshiWayne HealthCare Main CampusComment on above: Order Comment: MONOCLONAL PROTEINS MAY CAUSE FALSELY LOWRESULTS IN THIS ASSAY. SERUM PROTEINELECTROPHORESIS SHOULD BE DONE THEFIRST TEST TO EVALUATE MONOCLONAL GAMMOPATHY.Performed By: #### IGS ####ARNULFO Roger ([id number])[facility] ([facility])[address], [place] [address]ByG [Mass/Vol]461 mg/eGJug712-8777AmvahsolvtWayne HealthCare Main CampusComment on above: Order Comment: MONOCLONAL PROTEINS MAY CAUSE FALSELY LOWRESULTS IN THIS ASSAY. SERUM PROTEINELECTROPHORESIS SHOULD BE DONE THEFIRST TEST TO EVALUATE MONOCLONAL GAMMOPATHY.Performed By: #### IGS ####ARNULFO Roger ([id number])[facility] ([facility])[address] [place], [place] [address]FrA [Mass/Vol]mg/dL Ygc48-302QrtweimusuWayne HealthCare Main CampusComment on above:Order Comment: MONOCLONAL PROTEINS MAY CAUSE FALSELY LOWRESULTS IN THIS ASSAY. SERUM PROTEINELECTROPHORESIS SHOULD BE DONE THEFIRST TEST TO EVALUATE MONOCLONAL GAMMOPATHY.Performed By: #### IGS ####ARNULFO Roger ([id number])[facility] ([facility])[id number] [place] [address]Eejjmahujvebee light chains.free panel (S)on 74-81-7186Grisfckblwwacl light chains.kappa [Mass/Vol]<0.08Low 0.33-1.94[facility] HospitalComment on above:Order Comment: Undetected antigen excess is a rare event but cannot beexcluded. If these free lightchain results do not agreewith other clinical or laboratory findings, or if thesample is from a patient that has previously demonstratedantigen excess, the result must be checked by retestingat a higher sample dilution. Results should always beinterpreted in conjunction with other laboratory testsand clinical evidence; any anomalies should be discussedwith the testing laboratory.Performed By: #### 37083-7 ####ARNULFO Roger ([id number])[facility] ([facility])[id number] [place] [address]Klynhcwjrsjcnp light chains.kappa/Immunoglobulin light chains.lambda (S) [Mass ratio]Normal [facility] HospitalComment on above:Order Comment: Undetected antigen excess is a rare event but cannot beexcluded. If these free lightchain results do not agreewith other clinical or laboratory findings, or if thesample is from a patient that has previously demonstratedantigen excess, the result must be checked by retestingat a higher sample dilution. Results should always beinterpreted in conjunction with other laboratory testsand clinical evidence; any anomalies should be discussedwith the testing laboratory.Result Comment: One or more analytes used in this calculationis outside of the analytical measurement range.Calculation cannot be performed.Performed By: #### 81212-5 ####ARNULFO Roger ([id number])[facility] ([facility])[address] [place] [address]Kaubkbnvkkbzzf light chains.lambda [Mass/Vol]<0.17Low 0.57-2.63UnWayne HealthCare Main CampusComment on above:Order Comment: Undetected antigen excess is a rare event but cannot beexcluded. If these free lightchain results do not agreewith other clinical or laboratory findings, or if thesample is from a patient that has previously demonstratedantigen excess, the result must be checked by retestingat a higher sample dilution. Results should always beinterpreted in conjunction with other laboratory testsand clinical evidence; any anomalies should be discussedwith the testing laboratory.Performed By: #### 94659-5 ####ARNULFO Roger ([id number])[facility] ([facility])[address] [place] [address]Rpiozpzesrjhxic (IgG, IgA, IgM)Ordered By: Todd Deluca on 84-49-2106KkO [Mass/Vol]mg/dLLow70 - 400 mg/dLUnCentervilleIgG [Mass/Vol]461 mg/bCMxu782 - 1600 mg/dLUnCentervilleIgM [Mass/Vol]mg/dLLow40 - 230 mg/dL [facility] Health PrebleInterpretation and review of laboratory results AbnormalUnCentervilleMONOCLONAL PROTEINS MAY CAUSE FALSELY LOW RESULTS IN THIS ASSAY. SERUM PROTEIN ELECTROPHORESIS SHOULD BE DONE THE FIRST TEST TO EVALUATE MONOCLONAL GAMMOPATHY.[facility] Medical CenterProteinon 19-09-6791Vfaksdt [Mass/Vol]5.0 g/dL Low6.4-8.2UnWayne HealthCare Main CampusComment on above: Performed By: #### 2885-2 ####ARNULFO Roger ([id number])[facility] ([facility])[address] [place], [place] [address]Valxvoi electrophoresis panelon 12-29-2023 Albumin [Mass/Vol]3.0 g/dLLow3.4-5.0UnWayne HealthCare Main CampusComment on above:Performed By: #### 31383-9 ####ARNULFO Roger ([id number])[facility] ([facility])[address] [place], [place] [address]SFWDR 1 GLOBULIN0.4 g/dLNormal0.2-0.6[facility] HospitalComment on above: Performed By: #### 01920-4 ####ARNULFO Roger ([id number])[facility] ([facility])[address] [place], [place] [address]YDEIV 2 GLOBULIN0.6 g/dLNormal0.4-1.1[facility] HospitalComment on above:Performed By: #### 18664-6 ####ARNULFO Roger ([id number])[facility] ([facility])[address] [place] [address]CDIR GLOBULIN0.7 g/dLNormal0.5-1.2[facility] HospitalComment on above:Performed By: #### 09780-0 ####ARNULFO Roger ([id number])[facility] ([facility])[address] [place] [address]PMJIG GLOBULIN0.4 g/dLLow0.5-1.4[facility] HospitalComment on above: Performed By: #### 89270-8 ####ARNULFO Roger ([id number])[facility] ([facility])[id number] [place] [address]CJTY REVIEW-SERUM PROTEIN ELECTROPHORESIS Reviewed and approved by CASS FREEDMAN on 12/31/23 at 5:08 PM.[facility]itan HospitalComment on above:Performed By: #### 98807-7 ####ARNULFO Roger ([id number])[facility] ([facility])[id number] [place] [address]MMBIAJL ELECTROPHORESIS COMMENTHypoalbuminemia.[facility]itan HospitalComment on above:Performed By: #### 07678-5 ####ARNULFO Roger ([id number])[facility] ([facility])[id number] [place] [address]Wksvrqewb partial thromboplastin time (aPTT) in platelet poor plasma by coagulation aOrdered By: Faye Gaytan on 65-40-0537oZEP Coag (PPP) [Time]33.6 s25.1-36.5FPremier HealthComment on above:A hematocrit value greater than 55% may lead to inaccurate results in coagulation testing. Patients having hematocrit values >55% require a special collection tube for coagulation studies. Please contact the laboratory at [phone] for redraw instructions. Anisocytosis LM Ql (Bld)Ordered By: Faye Gaytan on 56-28-4209Xndfhzuogewp Ql (Bld)ModerateSalem City HospitalBacterial blood cultureOrdered By: Faye Gaytan on 05-99-7377Qimeveik identified Cx Nom (Bld)NO GROWTH 5 DAYSSalem City HospitalBacteria identified Cx Nom (Bld)NO GROWTH 5 DAYSSalem City HospitalBasophils Auto (Bld) [#/Vol]Ordered By: Faye Gaytan on 31-35-7007Tvwwlljby (Bld) [#/Vol]0.0 10*3/uL0.0-0.2FPremier HealthBasophils/100 WBC Auto (Bld)Ordered By: Faye Gaytan on 42-63-5598Ogpqxxgvu/100 WBC (Bld)0.5 %.[facility] City HospitalCOVID CepheidOrdered By: Faye Gaytan on 72-09-2642BPEP-CoV-2 (COVID-19) Ab IA Ql PositiveNegativeSalem City HospitalComment on above:This is a duplicate Cep[employer] Vehicle [employer]id Xpert Xpress CoV-2/Flu/RSV Plus RNA by RT-PCR result to be used for statistical tracking purpose only.SARS-CoV-2 (COVID-19) RNA JOHANN+probe Ql (Unsp spec)[facility] InstituteARS-CoV-2 (COVID-19) RNA JOHANN+probe Ql (Unsp spec)[facility] HospitalCalcium [Mass/volume] in Serum or PlasmaOrdered By: Faye Gaytan on 28-13-0808Wayajxl [Mass/Vol]8.0 mg/dL8.6-10.3[facility] Medical CenterCarbon dioxide, total [Moles/volume] in Serum or PlasmaOrdered By: Faye Nicolas on 21-01-7873EL5 [Moles/Vol]25.6 mmol/L21.0-31.0[facility] HospitalChloride [Moles/volume] in Serum or PlasmaOrdered By: [facility] on 12-17-2023 Chloride [Moles/Vol]108 mmol/R16-666IoddnylzuSalem City HospitalCreatinine [Mass/volume] in Serum or PlasmaOrdered By: Faye [facility] on 12-17-2023 Creatinine [Mass/Vol]0.61 mg/dL0.60-1.20[facility] Eosinophils Auto (Bld) [#/Vol]Ordered By: [facility] on 12-17-2023 Eosinophils (Bld) [#/Vol]0.1 10*3/uL0.0-0.45[facility] Eosinophils/100 WBC Auto (Bld)Ordered By: [facility] on 12-17-2023 Eosinophils/100 WBC (Bld)4.0 %.[facility] HospitalErythrocyte distribution width Auto (RBC) [Ratio]Ordered By: [facility] on 12-17-2023 Erythrocyte distribution width (RBC) [Ratio]18.2 %11.9-15.3FPremier HealthFibrin D-dimer [Presence] in Platelet poor plasma by Latex agglutinationOrdered By: Faye [facility] on 51-35-6351Hxgbwr D-dimer LA Ql (PPP) 775 ng/mL0-243Sal[facility] City HospitalComment on above:The reference range for D-dimer is <243 ng/mL D-dimer units.D-dimer results must be used in conjunction with a clinicalpretest probability (PTP) assessment model for deep veinthrombosis (DVT) and pulmonary embolism (PE). Results <230ng/mL d-dimer units can be used as a negative predictor inpatients with low or moderate probability for DVT/PE.Results above the exclusion threshold of 230 ng/ml D- dimerunits for DVT/PE may indicate the need for furtherdiagnostic testing.D- Dimer can be increased in hospitalized patients due toco-morbid conditions.A hematocrit value greater than 55% may lead to inaccurate results in coagulation testing. Patients having hematocrit values >55% require a special collection tube for coagulation studies. Please contact the laboratory at [phone] for redraw instructions.Glucose [Mass/volume] in Serum or PlasmaOrdered By: Faye Gaytan on 88-31-3186Sdopjzp [Mass/Vol]140 mg/eS30-306OssodxfpsSalem City HospitalComment on above:ADA recommended reference rangeRandom Glucose Reference Range is dependent on time and content of last meal. Glucose of more than 200 mg/dL in a nonstressed, ambulatory subject supports the diagnosisof Diabetes Mellitus.Hematocrit Auto (Bld) [Volume fraction]Ordered By: Faye Gaytan on 83-86-8726Trslgoeswc (Bld) [Volume fraction]26.5 %34.0-46.4FPremier HealthHemoglobin [Mass/volume] in BloodOrdered By: Faye Gaytan on 90-66-6372Kpjsopjgfr (Bld) [Mass/Vol]8.6 g/dL11.8-15.4FPremier HealthINR in Platelet poor plasma by Coagulation assayOrdered By: Faye Gaytan on 45-26-5022ROM Coag (PPP) [Relative time]1.3 {INR}[facility] City HospitalComment on above:INR Therapeutic Range A) Pre- and Peroperative OAT started two weeks before surgery. NOT HIP SURGERY: 1.5 - 2.5 HIP SURGERY: 2 - 3B) Primary and secondary prevention of venous THROMBOSIS: 2 - 3C) Active venous thrombosis, pulmonary embolismand prevention of recurrent venous thrombosis: 2 - 3D) Prevention of arterial thromboembolismincluding patients with mechanical heart valves: 3 - 4.5Lactate [Moles/volume] in Serum or Plasma Ordered By: Faye Gaytan on 51-96-5548Chhqudw [Moles/Vol]1.8 mmol/L0.5-2.2 [facility] HospitalLeukocytes [#/volume] corrected for nucleated erythrocytes in Blood by Automated counOrdered By: Faey Gaytan on 12-17-2023 WBC corrected for nucl RBC Auto (Bld) [#/Vol]1.7 10*3/uL3.8-11.6FPremier HealthLymphocytes Auto (Bld) [#/Vol]Ordered By: Faye Gaytan on 11-99-0946Mchfgbxkvcx (Bld) [#/Vol]0.4 10*3/uL1.00-4.8Sal[facility] City HospitalLymphocytes/100 WBC Auto (Bld)Ordered By: Faye Gaytan on 63-28-1137Xxztafnpqky/100 WBC (Bld)22.9 %.[facility] CenterH Auto (RBC) [Entitic mass]Ordered By: Faye Gaytan on 47-15-0292VKN (RBC) [Entitic mass]27.5 pg24.7-34.3FPremier HealthMCHC Auto (RBC) [Mass/Vol]Ordered By: Faye Gaytan on 33-85-0328JSIE (RBC) [Mass/Vol]32.6 g/dL32.0-35.0[facility] HospitalMCV Auto (RBC) [Entitic vol] Ordered By: Faye Gaytan on 75-41-0023HOX (RBC) [Entitic vol]84.5 eT00-003 [facility] HospitalMonocyte distribution width [Entitic volume] in Blood by AutomatedOrdered By: Faye Gaytan on 12-44-1966Lqrxhfha distribution width Auto (Bld) [Entitic vol]20.92 %0.00-20.00[facility] Comment on above:For adults in ED, MDW > 20.0 may be associated with a higher risk of sepsis during the first 12 hrs of hospital admissionThe predictive value of MDW for identifying sepsis in patients with hematological abnormalities has not been establishedMonocytes Auto (Bld) [#/Vol]Ordered By: Faye Gaytan on 76-56-6002Qsqcbhgwi (Bld) [#/Vol]0.3 10*3/uL0.0-0.8[facility] HospitalMonocytes/100 WBC Auto (Bld)Ordered By: Faye Gaytan on 12-17-2023 Monocytes/100 WBC (Bld)20.3 %.[facility] Regional Medical CenterNatriuretic peptide B [Mass/Vol]Ordered By: Faye Gaytan on 30-08-6996Cbaoqtwziuq peptide B (Bld) [Mass/Vol]182.0 pg/mL5-100Sal[facility] City HospitalNeutrophils Auto (Bld) [#/Vol]Ordered By: Faye Gaytan on 72-86-9299Kdlxugkshsp (Bld) [#/Vol]0.9 10*3/uL1.8-7.7FPremier HealthNeutrophils/100 WBC Auto (Bld)Ordered By: Faye Gaytan on 41-08-3056Vfbvnqxhqdo/100 WBC (Bld)52.3 %.[facility] HospitalNo Panel InformationOrdered By: Faye Gaytan on 25-56-4030Ddituiysw GFR (CKD-EPI)> 60.0 mL/MinSalem City HospitalPharmacy Creatinine Clearance (Chem69.21[facility] HospitalNucleated erythrocytes [Presence] in Blood by Automated countOrdered By: Faye Gaytan on 29-73-1106Zggpchhfp RBC Auto Ql (Bld)0.2 /100{WBC}0-0.5 [facility] HospitalOvalocyte detectionOrdered By: Faye Gaytan on 02-11-4046Hijwfvnwde LM Ql (Bld)SlightSalem City Hospital Platelet adequacy [Presence] in Blood by Light microscopyOrdered By: Faye Gaytan on 50-66-2906Dxbkymden LM Ql (Bld)DecreasedNormCherrington HospitalPlatelet mean volume Auto (Bld) [Entitic vol]Ordered By: Faye Gaytan on 93-45-7610Mpwbnijo mean volume (Bld) [Entitic vol]8.2 fL6.3-10.7 [facility] HospitalPlatelet morphology finding [Identifier] in BloodOrdered By: Faye Gaytan on 41-29-8506Rrcpnqqt morphology finding Nom (Bld)NormalNormCherrington HospitalPlatelets Auto (Bld) [#/Vol] Ordered By: Faye Gaytan on 89-69-3580Mqykzsyre (Bld) [#/Vol]43 10*3/uL 150-450[facility] HospitalPoikilocytosis [Presence] in Blood by Light microscopyOrdered By: Faye Gaytan on 10-57-0946Nwrcqpvjjkjbnf LM Ql (Bld)SlightSalem City HospitalPotassium [Moles/volume] in Serum or PlasmaOrdered By: Faye Gaytan on 96-47-7375Ggzrugjjg [Moles/Vol]3.4 mmol/L 3.5-5.1FPremier HealthProthrombin time (PT)Ordered By: Faye Gaytan on 92-12-0315ZI Coag (PPP) [Time]14.5 s9.0-12.9[facility] HospitalComment on above:A hematocrit value greater than 55% may lead to inaccurate results in coagulation testing. Patientshaving hematocrit values >55% require a special collection tube for coagulation studies. Please c ontact the laboratory at [phone] for redraw instructions.RBC Auto (Bld) [#/Vol]Ordered By: Faye Gaytan on 27-12-7719COQ (Bld) [#/Vol]3.14 10*6/uL 3.60-5.00[facility] HospitalRBC morphologyOrdered By: Faye Gaytan 99-07-3118TEY morphology finding Nom (Bld)N/AFSouthview Medical Centererum or plasma anion gap determinationOrdered By: Faye Gaytan on 69-17-5372Xgzfc gap [Moles/Vol]7.8 mmol/L6.0-15.0[facility] Instituteodium [Moles/volume] in Serum or PlasmaOrdered By: Faye Gaytan 92-04-5468Jfscih [Moles/Vol]138 mmol/W173-052XzluqhghkSalem City Hospital Troponin I.cardiac [Mass/volume] in Serum or Plasma by Detection limit <= 0.01 ng/Ordered By: Faye Gaytan on 33-07-8451Norpsuwh I.cardiac DL <= 0.01 ng/mL [Mass/Vol]6.5 pg/mL0.0-15.0[facility] HospitalUrea nitrogen [Mass/volume] in Serum or PlasmaOrdered By: Faye Gaytan on 58-08-1102Fhvj nitrogen [Mass/Vol]10 mg/dL7-25[facility] HospitalWBC Auto (Bld) [#/Vol]Ordered By: Faye Gaytan on 19-57-7071ZCZ (Bld) [#/Vol]1.7 10*3/uL 3.8-11.6FPremier HealthCB W Auto Differential panel (Bld)on 29-71-8480Bvpvvuggbsw distribution width (RBC) [Ratio]17.3 %High11.5-14.5 [facility] HospitalComment on above:Order Comment: The previously reported component Neutrophils % is no longer being reported.The previously reported component Lymphocytes % is no longer being reported.The previously reported component Monocytes % is no longer being reported.The previously reported component Eosinophils % is no longer being reported.The previously reported component Basophils % is no longer being reported.The previ ously reported component Absolute Neutrophils is no longer being reported.The previously reported component Absolute Lymphocytes is no longer being reported.The previously reported component AbsoluteMonocytes is no longer being reported.The previously reported component Absolute Eosinophils is no longer being reported.The previously reported component Absolute Basophils is no longer being reported.Performed By: #### 57214-1 ####WIL HOLBROOK ([id number])[facility] (ALEX)[address] [place], [place] [address]Qjhzbzigdr (Bld) [Volume fraction]27.2 %Low36.0-46.0[facility] HospitalComment on above:Order Comment: The previously reported component Neutrophils % is no longer being reported.The previously reported component Lymphocytes % is no longer being reported.The previously reported component Monocytes % is no longer being reported.The previously reported component Eosinophils % is no longer being reported.The previously reported component Basophils % is no longer being reported.The previously reported component Absolute Neutrophils is no longer being reported.The previously reported co mponent Absolute Lymphocytes is no longer being reported.The previously reported component AbsoluteMonocytes is no longer being reported.The previously reported component Absolute Eosinophils is no longer being reported.The previously reported component Absolute Basophils is no longer being reported.Performed By: #### 02624-9 ####WIL HOLBROOK ([id number])[facility] (ALEX)[address] [facility] [address]Usdxuzwugw (Bld) [Mass/Vol]8.6 g/dLLow 12.0-16.0UnWayne HealthCare Main CampusComment on above:Order Comment: The previously reported component Neutrophils % is no longer being reported.The previously reported component Lymphocytes % is no longer being reported.The previously reported component Monocytes % is no longer being reported.The previously reported component Eosinophils % is no longer being reported.The previously reported component Basophils % is no longer being reported.The previously reported component Absolute Neutrophils is no longer being reported.The previously reported component Absolute Lymphocytes is no longer being reported.The previously reported component AbsoluteMonocytes is no longer being reported.The previously reported component Absolute Eosinophils is no longer being reported.The previously reported component Absolute Basophils is no longer being reported.Performed By: #### 53234-2 ####WIL HOLBROOK ([id number])[facility] (ALEX)[address] [place] [address] Immature granulocytes (Bld) [#/Vol]0.12 x10*3/uLNormal0.00-0.70UnWayne HealthCare Main CampusComment on above:Order Comment: The previously reported component Neutrophils % is no longer being reported.The previously reported component Lymphocytes % is no longer being reported.The previously reported component Monocytes % is no longer being reported.The previously reported component Eosinophils % is no longer being reported.The previously reported component Basophils % is no longer being reported.The previously reported component Absolute Neutrophils is no longer being reported.The previously reported component Absolute Lymphocytes is no longer being reported.The previously reported component AbsoluteMonocytes is no longer being reported.The previously reported component Absolute Eosinophils is no longer being reported.The previously reported component Absolute Basophils is no longer being reported.Performed By: #### 64829-3 ####WIL HOLBROOK ([id number])[facility] (ALEX)[address] [place], [place] [address]Owlhkrqw granulocytes/100 WBC (Bld)5.7 %High0.0-0.9UnWayne HealthCare Main CampusComment on above:Order Comment: The previously reported component Neutrophils % is no longer being reported.The previously reported component Lymphocytes % is no longer being reported.The previously reported component Monocytes % is no longer being reported.The previously reported component Eosinophils % is no longer being reported.The previously reported component Basophils % is no longer being reported.The previously reported component Absolute Neutrophils is no longer being reported.The previously reported co mponent Absolute Lymphocytes is no longer being reported.The previously reported component AbsoluteMonocytes is no longer being reported.The previously reported component Absolute Eosinophils is no longer being reported.The previously reported component Absolute Basophils is no longer being reported.Result Comment: Immature Granulocyte Count (IG) includes promyelocytes, myelocytes and metamyelocytes but does not include bands. Percent differential counts (%) should be interpreted in the context of the absolute cell counts (cells/UL). Performed By: #### 06808-6 ####WIL HOLBROOK ([id number])[facility] (ALEX)[address] [facility] [facility] [address]VUY (RBC) [Entitic mass]27.7 pg Etndyt45.0-34.0[facility] HospitalComment on above: Order Comment: The previously reported component Neutrophils % is no longer being reported.The previously reported component Lymphocytes % is no longer being reported.The previously reported component Monocytes % is no longer being reported.The previously reported component Eosinophils % is no longer being reported.The previously reported component Basophils % is no longer being reported.The previously reported component Absolute Neutrophils is no longer being reported.The previously reported component Absolute Lymphocytes is no longer being reported.The previously reported component AbsoluteMonocytes is no longer being reported.The previously reported component Absolute Eosinophils is no longer being reported.The previously reported component Absolute Basophils is no longer being reported.Performed By: #### 88807-9 ####WIL HOLBROOK ([id number])[facility] (ALEX)[address] [place] [address] MCHC (RBC) [Mass/Vol]31.6 g/dLLow32.0-36.0[facility] HospitalComment on above:Order Comment: The previously reported component Neutrophils % is no longer being reported.The previously reported component Lymphocytes % is no longer being reported.The previously reported component Monocytes % is no longer being reported.The previously reported component Eosinophils % is no longer being reported.The previously reported component Basophils % is no longer being reported.The previously reported component Absolute Neutrophils is no longer being reported.The previously reported co mponent Absolute Lymphocytes is no longer being reported.The previously reported component AbsoluteMonocytes is no longer being reported.The previously reported component Absolute Eosinophils is no longer being reported.The previously reported component Absolute Basophils is no longer being reported.Performed By: #### 26925-6 ####WIL HOLBROOK ([id number])[facility] (ALEX)[address] [facility] [facility] [address]ADL (RBC) [Entitic vol]88 fLNormal 80-100UnWayne HealthCare Main CampusComment on above:Order Comment: The previously reported component Neutrophils % is no longer being reported.The previously reported component Lymphocytes % is no longer being reported.The previously reported component Monocytes % is no longer being reported.The previously reported component Eosinophils % is no longer being reported.The previously reported component Basophils % is no longer being reported.The previously reported component Absolute Neutrophils is no longer being reported.The previously reported component Absolute Lymphocytes is no longer being reported.The previously reported component AbsoluteMonocytes is no longer being reported.The previously reported component Absolute Eosinophils is no longer being reported.The previously reported component Absolute Basophils is no longer being reported.Performed By: #### 73756-5 ####WIL HOLBROOK ([id number])[facility] (ALEX)[address] [place] [address] Nucleated RBC/100 WBC (Bld) [Ratio]0.0 /100 WBCsNormal0.0-0.0[facility] HospitalComment on above:Order Comment: The previously reported component Neutrophils % is no longer being reported.The previously reported component Lymphocytes % is no longer being reported.The previously reported component Monocytes % is no longer being reported.The previously reported component Eosinophils % is no longer being reported.The previously reported component Basophils % is no longer being reported.The previously reported component Absolute Neutrophils is no longer being reported.The previously reported component Absolute Lymphocytes is no longer being reported.The previously reported component AbsoluteMonocytes is no longer being reported.The previously reported component Absolute Eosinophils is no longer being reported.The previously reported component Absolute Basophils is no longer being reported.Performed By: #### 84063-0 ####WIL HOLBROOK ([id number])[facility] (ALEX)[address] [place], [place] [address]Orjmozaee (Bld) [#/Vol]44 x10*3/jRMgs026-521XedgsgaayeWayne HealthCare Main Campus Comment on above:Order Comment: The previously reported component Neutrophils % is no longer being reported.The previously reported component Lymphocytes % is no longer being reported.The previously reported component Monocytes % is no longer being reported.The previously reported component Eosinophils % is no longer being reported.The previously reported component Basophils % is no longer being reported.The previously reported component Absolute Neutrophils is no longer being reported.The previously reported component Absolute Lymphocytes is no longer being reported.The previously reported component AbsoluteMonocytes is no longer being reported.The previously reported component Absolute Eosinophils is no longer being reported.The previously reported component Absolute Basophils is no longer being reported.Performed By: #### 68481-5 ####WIL HOLBROOK ([id number])[facility] (ALEX)[address] [place] [address] RBC (Bld) [#/Vol]3.11 x10*6/uLLow4.00-5.20[facility] HospitalComment on above:Order Comment: The previously reported component Neutrophils % is no longer being reported.The previously reported component Lymphocytes % is no longer being reported.The previously reported component Monocytes % is no longer being reported.The previously reported component Eosinophils % is no longer being reported.The previously reported component Basophils % is no longer being reported.The previously reported component Absolute Neutrophils is no longer being reported.The previously reported co mponent Absolute Lymphocytes is no longer being reported.The previously reported component AbsoluteMonocytes is no longer being reported.The previously reported component Absolute Eosinophils is no longer being reported.The previously reported component Absolute Basophils is no longer being reported.Performed By: #### 43619-9 ####WIL HOLBROOK ([id number])[facility] (ALEX)[address] [place], [place] [address]QTS (Bld) [#/Vol]2.1 x10*3/uLLow 4.4-11.3[facility] HospitalComment on above:Order Comment: The previously reported component Neutrophils % is no longer being reported.The previously reported component Lymphocytes % is no longer being reported.The previously reported component Monocytes % is no longer being reported.The previously reported component Eosinophils % is no longer being reported.The previously reported component Basophils % is no longer being reported.The previously reported component Absolute Neutrophils is no longer being reported.The previously reported component Absolute Lymphocytes is no longer being reported.The previously reported component AbsoluteMonocytes is no longer being reported.The previously reported component Absolute Eosinophils is no longer being reported.The previously reported component Absolute Basophils is no longer being reported.Performed By: #### 77276-8 ####WIL HOLBROOK ([id number])[facility] (ALEX)[address] [place] [address] Comprehensive metabolic 2000 panelon 85-20-6958Qeewaav BCP dye [Mass/Vol]3.1 g/dLLow3.4-5.0UnWayne HealthCare Main CampusComment on above: Performed By: #### 66741-2 ####WIL HOLBROOK ([id number])[facility] (ALEX)[address] [place], [place] [address]LDA [Catalytic activity/Vol]84 U/L Awbnaq74-160BdwmruwcgxWayne HealthCare Main CampusComment on above: Performed By: #### 43210-6 ####WIL HOLBROOK ([id number])[facility] (ALEX)[address] [place], [place] [address]PHU With P-5'-P [Catalytic activity/Vol]17 U/LNormal7-45[facility] Comment on above:Result Comment: Patients treated with Sulfasalazine may generate falsely decreased results for ALT.Performed By: #### 80601-0 ####WIL HOLBROOK ([id number])[facility] (ALEX)[address] [place], [place] [address]Qavxy gap [Moles/Vol]12 mmol/GAozijv22-81NswwagvucqWayne HealthCare Main CampusComment on above:Performed By: #### 68633-7 ####WIL HOLBROOK ([id number])[facility] (ALEX)[address] [place] [address] AST With P-5'-P [Catalytic activity/Vol]26 U/LNormal9-39UnWayne HealthCare Main CampusComment on above:Performed By: #### 92363-6 ####WIL HOLBROOK ([id number])[facility] (ALEX)[address] [place] [address]Scxzkgjlm [Mass/Vol]1.1 mg/dLNormal0.0-1.2[facility] HospitalComment on above:Performed By: #### 73672-0 ####WIL HOLBROOK ([id number])[facility] (ALEX)[address] [place] [address] Calcium [Mass/Vol]8.0 mg/dLLow8.6-10.3[facility] HospitalComment on above:Performed By: #### 85688-1 ####WIL HOLBROOK ([id number])[facility] (ALEX)[address] [place], [place] [address]Qaijywnm [Moles/Vol]108 mmol/FOrvg18-637WjdmfeydxoWayne HealthCare Main Campus Comment on above:Performed By: #### 63837-3 ####WIL HOLBROOK ([id number])[facility] (ALEX)[address] [place] [address]LU4 [Moles/Vol]24 mmol/LOdmmdr23-85QxfpobvhduGreene Memorial Hospital Comment on above:Performed By: #### 11496-4 ####WIL HOLBROOK ([id number])[facility] (ALEX)[address] [place], [place] [address]Ftfdjxsbpz [Mass/Vol]0.58 mg/dLNormal0.50-1.05[facility] Comment on above:Performed By: #### 24223-7 ####WIL Villalobos'VANDANA ([id number])[facility] (ALEX)[address] [place], [place] [address]IGF/1.73 sq M.predicted MDRD (S/P/Bld) [Vol rate/Area]mL/min/{1.73_m2}Normal>60UnWayne HealthCare Main CampusComment on above:Result Comment: Calculations of estimated GFR are performed using the 2020 CKD-EPI Study Refit equation without the race variable for the IDMS-Traceable creatinine methods.https://jasn.asnjournals.org/content//ASN.7681051401 Performed By: #### 44786-3 ####WIL Villalobos'VANDANA ([id number])[facility] (ALEX)[address] [place], [place] [address]Moxatvc [Mass/Vol]98 mg/dLNormal 74-99UnWayne HealthCare Main CampusComment on above:Performed By: #### 32092-9 ####WIL Villalobos'VANDANA ([id number])[facility] (ALEX)[address] [place], [place] [address]Zhbxmgtbu [Moles/Vol]3.6 mmol/LNormal 3.5-5.3UnWayne HealthCare Main CampusComment on above:Performed By: #### 50457-4 ####WIL Villalobos'VANDANA ([id number])[facility] (ALEX)[address] [place], [place] [address]Yialfyy [Mass/Vol]4.9 g/dLLow6.4-8.2 [facility] HospitalComment on above:Performed By: #### 76742-8 ####WIL Villalobos'VANDANA ([id number])[facility] (ALEX)[address] [place], [place] [address]Sqpmev [Moles/Vol]140 mmol/RFqlyfx218-232JytkrckulgWayne HealthCare Main CampusComment on above:Performed By: #### 62186-5 ####WIL HOLBROOK ([id number])[facility] (ALEX)[address] [place] [address]Qdhh nitrogen [Mass/Vol]12 mg/dLNormal6-23UnWayne HealthCare Main CampusComment on above:Performed By: #### 08724-1 ####WIL HOLBROOK ([id number])[facility] (ALEX)[address] [place], [place] [address]Piskfc differential performed Ql (Bld)on 12-15-2023 Basophils (Bld) [#/Vol]0.00 x10*3/uLNormal0.00-0.10UnWayne HealthCare Main CampusComment on above:Performed By: #### 12899-1 ####WIL HOLBROOK ([id number])[facility] (ALEX)[address] [place] [address]Lfnelhtkr/100 WBC (Bld)0.0 %Normal0.0-2.0[facility] HospitalComment on above:Performed By: #### 60441-5 ####WIL HOLBROOK ([id number])[facility] (ALEX)[address] [place] [address] Blasts Manual cnt (Bld) [#/Vol]0.02 x10*3/uLNormal0.00-0.00[facility] HospitalComment on above:Performed By: #### 91861-3 ####WIL HOLBROOK ([id number])[facility] (ALEX)[address] [place] [address]Npsder/100 WBC (Bld)1.0 %Normal0.0-0.0[facility] HospitalComment on above:Performed By: #### 71444-3 ####WIL HOLBROOK ([id number])[facility] (ALEX)[address] [place] [address] Cells Counted Total (Bld) [#]100Samaritan HospitalComment on above:Performed By: #### 39436-6 ####WIL HOLBROOK ([id number])[facility] (ALEX)[address] [place] [address]Coxbc body LM Ql (Bld)PresentNoCleveland Clinic Lutheran HospitalComment on above:Performed By: #### 43485-7 ####WIL HOLBROOK ([id number])[facility] (ALEX)[address] [place] [address]Cqnfwaizznt (Bld) [#/Vol] 0.13 x10*3/uLNormal0.00-0.70[facility] HospitalComment on above:Performed By: #### 73693-9 ####WLI HOLBROOK ([id number])[facility] (ALEX)[address] [place] [address]Xsmpuhpzyji/100 WBC (Bld)6.0 %Normal0.0-6.0[facility] HospitalComment on above:Performed By: #### 77003-4 ####WIL HOLBROOK ([id number])[facility] (ALEX)[address] [place], [place] [address]Jrwaelisqvl (Bld) [#/Vol] 0.44 x10*3/uLLow1.20-4.80[facility] HospitalComment on above:Performed By: #### 16272-7 ####WIL HOLBROOK ([id number])[facility] (ALEX)[address] [place], [place] [address]Rruyhhwzexc/100 WBC (Bld) 21.0 %Wfosfb08.0-44.0[facility] HospitalComment on above:Performed By: #### 95374-3 ####WIL HOLBROOK ([id number])[facility] (ALEX)[address] [place] [address]Krxzqevtk (Bld) [#/Vol]0.34 x10*3/uLNormal0.10-1.00[facility] HospitalComment on above:Performed By: #### 38899-4 ####WIL O'VANDANA ([id number])[facility] (ALEX)[address] [place] [address]Ibamtsveu/100 WBC (Bld)16.0 %Normal2.0-10.0[facility] HospitalComment on above: Performed By: #### 45960-7 ####WIL O'VANDANA ([id number])[facility] (ALEX)[address] [place] [address]Xdnqtlzbxq LM Ql (Bld)[facility], Edwin ShawComment on above:Performed By: #### 63656-9 ####WIL O'VANDANA ([id number])[facility] (ALEX)[address] [place], [place] [address]Dnzcguxzfqplp LM Ql (Bld)[facility], Edwin ShawComment on above:Performed By: #### 70257-8 ####WIL O'VANDANA ([id number])[facility] (ALEX)[address] [place], [place] [address]FBT morphology finding Nom (Bld)See [facility] Methodist HospitalComment on above:Performed By: #### 66817-9 ####WIL O'VANDANA ([id number])[facility] (ALEX)[address] [place], [place] [address]Wbhmqmqkr neutrophils (Bld) [#/Vol]1.18 x10*3/uLLow 1.20-7.00[facility] HospitalComment on above:Performed By: #### 16308-7 ####WIL Villalobos'VANDANA ([id number])[facility] (ALEX)[address] [place] [facility] [address]Dtpxaypsh neutrophils/100 WBC (Bld)56.0 %Tqbmic15.0-80.0UnWayne HealthCare Main CampusComment on above: Result Comment: Percent differential counts (%) should be interpreted in the context of the absolute cell counts (cells/uL).Performed By: #### 36080-1 ####WIL HOLBROOK ([id number])[facility] (ALEX)[address] [place] [facility] [place] [address]Jgbfobmocuh review Pathologist comment (Bld) [Interp]on 19-12-0345NTJG REVIEW-CBC DIFFERENTIALPancytopenia. Clinical correlation is recommended.NormalGreene Memorial HospitalComment on above: Result Comment: .By the signature on this report, the individual or group listed as making the Final Interpretation/Diagnosis certifies that they have reviewed this case.Performed By: #### 04185-3 ####ARNULFO Roger ([id number])[facility] ([facility])[address] [place], [place] [address]BUX W Auto Differential panel (Bld)on 81-35-8988Aonfiyfth (Bld) [#/Vol]0.00 x10*3/uLNormal0.00-0.10[facility] HospitalComment on above:Performed By: #### 19963-3 ####WIL HOLBROOK ([id number])[facility] (ALEX)[address] [place], [place] [address]Hvwkpwzgy/100 WBC (Bld)0.0 %Normal0.0-2.0[facility] HospitalComment on above:Performed By: #### 10670-1 ####WIL HOLBROOK ([id number])[facility] (ALEX)[address] [place] [address]Lqbgsoqxeqi (Bld) [#/Vol]0.07 x10*3/uLNormal0.00-0.70 [facility] HospitalComment on above:Result Comment: Automated WBC differential has been confirmed by manual smear.Performed By: #### 77597-6 ####WIL HOLBROOK ([id number])[facility] (ALEX)[address] [place], [place] [address]Ivtjaveiiue/100 WBC (Bld)3.6 %Normal0.0-6.0 [facility] HospitalComment on above:Performed By: #### 71730-6 ####WIL Villalobos'VANDANA ([id number])[facility] (ALEX)[address] [place], [place] [address]Yugjojakwhq distribution width (RBC) [Ratio]17.1 % High11.5-14.5UnWayne HealthCare Main CampusComment on above: Performed By: #### 39140-6 ####WIL Villalobos'VANDANA ([id number])[facility] (ALEX)[address] [place], [place] [address]Vqllumpofu (Bld) [Volume fraction] 27.2 %Low36.0-46.0UnWayne HealthCare Main CampusComment on above: Performed By: #### 40634-9 ####WIL Villalobos'VANDANA ([id number])[facility] (ALEX)[address] [place], [place] [address]Pvdciikfsm (Bld) [Mass/Vol]8.5 g/dL Low12.0-16.0UnWayne HealthCare Main CampusComment on above: Performed By: #### 29262-0 ####WIL Villalobos'VANDANA ([id number])[facility] (ALEX)[address] [place], [place] [address]Ndmmyelb granulocytes (Bld) [#/Vol] 0.01 x10*3/uLNormal0.00-0.70UnWayne HealthCare Main CampusComment on above:Performed By: #### 49498-3 ####WIL HOLBROOK ([id number])[facility] (ALEX)[address] [place], [place] [address]Vxymrecb granulocytes/100 WBC (Bld)0.5 %Normal0.0-0.9UnWayne HealthCare Main CampusComment on above:Result Comment: Immature Granulocyte Count (IG) includes promyelocytes, myelocytes and metamyelocytes but does not include bands. Percent differential counts (%) should be interpreted in the context of the absolute cell counts (cells/UL).Performed By: #### 82852-7 ####WIL HOLBROOK ([id number])[facility] (ALEX)[address] [place], [place] [address]Iugfdzgcwvb (Bld) [#/Vol]0.63 x10*3/uLLow1.20-4.80Greene Memorial HospitalComment on above:Performed By: #### 99447-0 ####WIL HOLBROOK ([id number])[facility] (ALEX)[address] [place], [place] [address]Keasemfzvqf/100 WBC (Bld)32.3 %Fiqqbt24.0-44.0UnWayne HealthCare Main CampusComment on above:Performed By: #### 86957-8 ####WIL HOLBROOK ([id number])[facility] (ALEX)[address] [place], [place] [address]YNN (RBC) [Entitic mass]27.7 pgRcatmd39.0-34.0UnWayne HealthCare Main CampusComment on above:Performed By: #### 32214-6 ####WIL Villalobos'VANDANA ([id number])[facility] (ALEX)[address] [place], [place] [address]YZJU (RBC) [Mass/Vol]31.3 g/dLLow32.0-36.0UnWayne HealthCare Main CampusComment on above:Performed By: #### 19182-0 ####WIL HOLBROOK ([id number])[facility] (ALEX)[address] [place] [address] MCV (RBC) [Entitic vol]89 yRFigect24-781CgqwkflijuGreene Memorial HospitalComment on above:Performed By: #### 36149-9 ####WIL HOLBROOK ([id number])[facility] (ALEX)[address] [place], [place] [address]Ambrdmnwy (Bld) [#/Vol]0.34 x10*3/uLNormal0.10-1.00Greene Memorial HospitalComment on above:Performed By: #### 60154-0 ####WIL HOLBROOK ([id number])[facility] (ALEX)[address] [place] [address] Monocytes/100 WBC (Bld)17.4 %Normal2.0-10.0UnWayne HealthCare Main CampusComment on above:Performed By: #### 83743-8 ####WIL HOLBROOK ([id number])[facility] (ALEX)[address] [place] [address] Neutrophils (Bld) [#/Vol]0.90 x10*3/uLLow1.20-7.70UnWayne HealthCare Main CampusComment on above:Result Comment: Percent differential counts (%) should be interpreted in the context of the absolute cell counts (cells/uL). Performed By: #### 71702-1 ####WIL HOLBROOK ([id number])[facility] (ALEX)[address] [place], [place] [address]Azjnjjwaunp/100 WBC (Bld)46.2 % Fcjdlc25.0-80.0Greene Memorial HospitalComment on above: Performed By: #### 26861-8 ####WIL HOLBROOK ([id number])[facility] (ALEX)[address] [place], [place] [address]Wrapdspmw RBC/100 WBC (Bld) [Ratio] 0.0 /100 WBCsNormal0.0-0.0Greene Memorial HospitalComment on above:Performed By: #### 93201-8 ####WIL HOLBROOK ([id number])[facility] (ALEX)[address] [place], [place] [address]Ponhbirwo (Bld) [#/Vol]49 x10*3/tAFqq436-313HdbajkknuuWayne HealthCare Main CampusComment on above:Performed By: #### 90772-8 ####WIL HOLBROOK ([id number])[facility] (ALEX)[address] [place], [place] [address]CKX (Bld) [#/Vol]3.07 x10*6/uLLow4.00-5.20UnWayne HealthCare Main CampusComment on above:Performed By: #### 12917-9 ####WIL HOLBROOK ([id number])[facility] (ALEX)[address] [place], [place] [address]OWD (Bld) [#/Vol]2.0 x10*3/uLLow4.4-11.3Greene [facility] HospitalComment on above:Performed By: #### 32022-8 ####WIL HOLBROOK ([id number])[facility] (ALEX)[address] [place], [place] [address]Mernvtnfjklew metabolic 2000 panelon 83-45-2295Kdphhuc BCP dye [Mass/Vol]3.2 g/dLLow3.4-5.0Greene Memorial HospitalComment on above:Performed By: #### 57788-2 ####WIL HOLBROOK ([id number])[facility] (ALEX)[address], [place] [address]ENC [Catalytic activity/Vol]87 U/NIwdcdb47-208BqjmuibkokWayne HealthCare Main CampusComment on above:Performed By: #### 29127-8 ####WIL HOLBROOK ([id number])[facility] (ALEX)[address] [place], [place] [address]IWX With P-5'-P [Catalytic activity/Vol]19 U/LNormal7-45 Greene [facility] HospitalComment on above:Result Comment: Patients treated with Sulfasalazine may generate falsely decreased results for ALT.Performed By: #### 17932-8 ####WIL Villalobos'VANDANA ([id number])[facility] (ALEX)[address] [place], [place] [address]Dbluq gap [Moles/Vol]10 mmol/YObwhsk32-66YixoouxnvrGreene Memorial HospitalComment on above: Performed By: #### 93407-4 ####WIL Villalobos'VANDANA ([id number])[facility] (ALEX)[address] [place], [place] [address]RBJ With P-5'-P [Catalytic activity/Vol]27 U/LNormal9-39[facility] Comment on above:Performed By: #### 61877-5 ####WIL Villalobos'VANDANA ([id number])[facility] (ALEX)[address] [place], [place] [address]Rxlddtrlb [Mass/Vol]0.8 mg/dLNormal0.0-1.2[facility] Comment on above:Performed By: #### 60021-4 ####WIL Villalobos'VANDANA ([id number])[facility] (ALEX)[address] [place], [place] [address]Apepmjn [Mass/Vol]8.4 mg/dLLow8.6-10.3[facility] Comment on above:Performed By: #### 62547-6 ####WIL Villalobos'VANDANA ([id number])[facility] (ALEX)[address] [place], [place] [address]Nuwbyofq [Moles/Vol]107 mmol/YLxctok66-065LkvqplpezxGreene Memorial Hospital Comment on above:Performed By: #### 29747-7 ####WIL Villalobos'VANDANA ([id number])[facility] (ALEX)[address] [place], [place] [address]VV5 [Moles/Vol]28 mmol/HBqzrnb47-49PofvtfuujsGreene Memorial Hospital Comment on above:Performed By: #### 79382-6 ####WIL Villalobos'VANDANA ([id number])[facility] (ALEX)[address] [place], [place] [address]Mmykjpfqlu [Mass/Vol]0.65 mg/dLNormal0.50-1.05UnWayne HealthCare Main Campus Comment on above:Performed By: #### 46751-4 ####WIL Villalobos'VANDANA ([id number])[facility] (ALEX)[address] [place], [place] [address]PJB/1.73 sq M.predicted MDRD (S/P/Bld) [Vol rate/Area]mL/min/{1.73_m2}Normal>60UnWayne HealthCare Main CampusComment on above:Result Comment: Calculations of estimated GFR are performed using the 2020 CKD-EPI Study Refit equation without the race variable for the IDMS-Traceable creatinine methods.https://jasn.asnjournals.org/content/early/ASN.8794200922 Performed By: #### 38866-1 ####WIL Villalobos'VANDANA ([id number])[facility] (ALEX)[address] [place], [place] [address]Vorxziy [Mass/Vol]97 mg/dLNormal 74-99UnWayne HealthCare Main CampusComment on above:Performed By: #### 20831-7 ####WIL Villalobos'VANDANA ([id number])[facility] (ALEX)[address] [place], [place] [address]Iolzzffbq [Moles/Vol]4.1 mmol/LNormal 3.5-5.3Gre[facility] HospitalComment on above:Performed By: #### 57818-0 ####WIL Villalobos'VANDANA ([id number])[facility] (ALEX)[address] [place], [place] [address]Prpvhav [Mass/Vol]4.7 g/dLLow6.4-8.2 [facility] HospitalComment on above:Performed By: #### 45086-5 ####WIL O'VANDANA ([id number])[facility] (ALEX)[address] [place], [place] [address]Lvibai [Moles/Vol]141 mmol/POurbyp232-680RqbzizdgrhGreene Memorial HospitalComment on above:Performed By: #### 72231-7 ####WIL O'VANDANA ([id number])[facility] (ALEX)[address] [place], [place] [address]Lhpi nitrogen [Mass/Vol]17 mg/dLNormal6-23Gre[facility] HospitalComment on above:Performed By: #### 90867-5 ####WIL O'VANDANA ([id number])[facility] (ALEX)[address] [place], [place] [address]ITD shape Nom (Bld)on 28-55-6747Bsst cells LM Ql (Bld)[facility] Beachwood Medical CenterComment on above:Performed By: #### 76153-9 ####WIL Villalobos'VANDANA ([id number])[facility] (ALEX)[address] [place], [place] [address]Qniljmkugm LM Ql (Bld)[facility], [facility] ShawComment on above:Performed By: #### 32914-9 ####WIL O'VANDANA ([id number])[facility] (ALEX)[address] [place], [place] [address]Lsfefdfvxf LM Ql (Bld)[facility] for RehabilitationComment on above:Performed By: #### 76424-5 ####WIL Villalobos'VANDANA ([id number])[facility] (ALEX)[address] [place], [place] [address]Rjuxvzvqzhyjm LM Ql (Bld)MildNoCleveland Clinic Lutheran HospitalComment on above:Performed By: #### 09968-3 ####WIL HOLBROOK ([id number])[facility] (ALEX)[address] [place] [address] RBC morphology finding Nom (Bld)See BelowSamaritan HospitalComment on above:Performed By: #### 05165-5 ####WIL HOLBROOK ([id number])[facility] (ALEX)[address] [place] [address] C-reactive proteinon 54-90-3850FAG [Mass/Vol]0.13 mg/dLNINF - 1.00 mg/dL [facility]bleCB W Auto Differential panel (Bld)on 70-01-9663Rwcsoneefzq distribution width (RBC) [Ratio]16.4 %High11.5 - 14.5 % [facility] PrebleHematocrit (Bld) [Volume fraction]28.7 %Low36.0 - 46.0 %[facility] PrebleHemoglobin (Bld) [Mass/Vol]8.7 g/dLLow 12.0 - 16.0 g/dLUnCentervilleImhannibal regional hospital granulocytes (Bld) [#/Vol]0.04 10*3/uLUnTrumbull Memorial Hospital granulocytes/100 WBC (Bld)3.0 %High0.0 - 0.9 %[facility] PrebleComment on above: Immature Granulocyte Count (IG) includes promyelocytes, myelocytes and metamyelocytes but does not include bands. Percent differential counts (%) should be interpreted in the context of the absolute cell counts (cells/UL).MCH (RBC) [Entitic mass]27.4 pg26.0 - 34.0 pgKettering Health PrebleMCHC (RBC) [Mass/Vol]30.3 g/dLLow32.0 - 36.0 g/dLAdena Fayette Medical CenterV (RBC) [Entitic vol]90 fL80 - [address] Mary HospitalNucleated RBC/100 WBC (Bld) [Ratio]0.0 %[facility] PreblePlatelets (Bld) [#/Vol]30 10*3/uLCritically lowUnCentervilleRB (Bld) [#/Vol]3.18 10*6/[facility] HospitalWBC (Bld) [#/Vol]1.3 10*3/[facility] HospitalFerritinon 87-13-5918Jnbdmekf [Mass/Vol]27 ng/mL8 - 150 ng/mLKettering Health PrebleFibrinogenon 58-82-9251Xoejzwmern Coag (PPP) [Mass/Vol]162 mg/qLCtk939 - 400 mg/dLKettering Health PrebleFimissouri rehabilitation center Coag (PPP) [Mass/Vol]on 11-25-2023 Interpretation and review of laboratory resultsAbnoOhioHealth Dublin Methodist HospitalGlucose Test strip manual (Bld) [Mass/Vol]on 44-98-9877Vifafrz [Mass/Vol]91 mg/dL74 - 99 mg/dLKettering Health PrebleInterpretation and review of laboratory resultsAvita Health SystemLactate Dehydrogenaseon 48-93-8714PLQ Lactate to pyruvate reaction [Catalytic activity/Vol]245 U/L84 - 246 U/LUnCentervilleMagnesiumon 33-21-0289Fdzlktobu [Mass/Vol]1.78 mg/dL1.60 - 2.40 mg/dLKettering Health PrebleManual differential performed Ql (Bld)on 29-70-8799Pcjumczdz (Bld) [#/Vol]0.00 10*3/[facility] HospitalBasophils/100 WBC (Bld)0.0 % 0.0 - 2.0 %[facility] PrebleCells Counted Total (Bld) [#]116 {cells}[facility] PrebleDacrocytes LM Ql (Bld)[facility] PrebleEosinophils (Bld) [#/Vol]0.03 10*3/uLUniversity Hospitals of ClevelandEosinophils/100 WBC (Bld)2.6 %0.0 - 6.0 %[facility] PrebleLymphocytes (Bld) [#/Vol]0.20 10*3/[facility] HospitalLymphocytes/100 WBC (Bld)15.5 %13.0 - 44.0 %[facility] PrebleMonocytes (Bld) [#/Vol]0.08 10*3/uLWestern Reserve Hospital Monocytes/100 WBC (Bld)6.0 %2.0 - 10.0 %[facility] PrebleRBC morphology finding Nom (Bld)See BelowUnCentervilleSegmented neutrophils (Bld) [#/Vol]0.99 10*3/[facility] Segmented neutrophils/100 WBC (Bld)75.9 %40.0 - 80.0 %[facility] on above:Percent differential counts (%) should be interpreted in the context of the absolute cell counts (cells/uL).No Panel Informationon 82-11-0514Oxiazjstyhumtf and review of laboratory resultsAbnormalUniPike Community HospitalInterpretation and review of laboratory resultsNormalUTrumbull Regional Medical CenterRenal function 2000 panelon 77-81-0816Eewkcfz BCP dye [Mass/Vol]3.2 g/dLLow3.4 - 5.0 g/dLUnCentervilleAnion gap [Moles/Vol]11 mmol/L10 - 20 mmol/[facility] HospitalCalcium [Mass/Vol]8.3 mg/dLLow8.6 - 10.6 mg/dLUnCentervilleChloride [Moles/Vol]106 mmol/L98 - 107 mmol/[facility] HospitalCO2 [Moles/Vol]27 mmol/L21 - 32 mmol/[facility] HospitalCreatinine [Mass/Vol]0.54 mg/dL0.50 - 1.05 mg/dLKettering Health PrebleeGFR- PINF [facility] on above:Calculations of estimated GFR are performed using the 2020 CKD-EPI Study Refit equation without therace variable for the IDMS-Traceable creatinine methods. https://jasn.asnjournals.org/content//ASN.4153046632 Glucose [Mass/Vol]120 mg/aOGyky82 - 99 mg/dLUnCenterville Interpretation and review of laboratory resultsAbnormalUniMount St. Mary HospitalPhosphate [Mass/Vol]3.6 mg/dL2.5 - 4.9 mg/dLUnKettering Health on above:The performance characteristics of phosphorus testing in heparinized plasma have been validated by the individual laboratory site where testing is performed. Testing on heparinized plasma is not approved by the FDA; however, such approval is not necessary.Potassium [Moles/Vol]3.9 mmol/L3.5 - 5.3 mmol/[facility] HospitalSodium [Moles/Vol]140 mmol/L136 - 145 mmol/[facility] HospitalUrea nitrogen [Mass/Vol]23 mg/dL6 - 23 mg/dLUnCentervilleUric Acidon 57-71-2749Gssrz [Mass/Vol] 3.5 mg/dL2.3 - 6.7 mg/dLUnKettering Health on above: Venipuncture immediately after or during the administration of Metamizole may lead to falsely low results. Testing should be performed immediately prior to Metamizole dosing. C-reactive proteinon 09-33-7609PQV [Mass/Vol]0.12 mg/dLNINF - 1.00 mg/dL [facility] PrebleCB W Auto Differential panel (Bld)on 52-96-1629Aqpjlgyaset distribution width (RBC) [Ratio]16.2 %High11.5 - 14.5 % [facility] PrebleHematocrit (Bld) [Volume fraction]27.7 %Low36.0 - 46.0 %[facility] PrebleHemoglobin (Bld) [Mass/Vol]8.4 g/dLLow 12.0 - 16.0 g/dLUnCentervilleImhannibal regional hospital granulocytes (Bld) [#/Vol]0.06 10*3/uLUnTrumbull Memorial Hospital granulocytes/100 WBC (Bld)4.5 %High0.0 - 0.9 %[facility] PrebleComment on above: Immature Granulocyte Count (IG) includes promyelocytes, myelocytes and metamyelocytes but does not include bands. Percent differential counts (%) should be interpreted in the context of the absolute cell counts (cells/UL).MCH (RBC) [Entitic mass]27.6 pg26.0 - 34.0 pgUnCentervilleMCHC (RBC) [Mass/Vol]30.3 g/dLLow32.0 - 36.0 g/dLKettering Health PrebleMCV (RBC) [Entitic vol]91 fL80 - [address] Mary HospitalNucleated RBC/100 WBC (Bld) [Ratio]0.0 %[facility] PreblePlatelets (Bld) [#/Vol]29 10*3/uLCritically lowUnCentervilleRBC (Bld) [#/Vol]3.04 10*6/uLWestern Reserve HospitalWBC (Bld) [#/Vol]1.3 10*3/uLWestern Reserve HospitalThe previously reported component Neutrophils % is no longer being reported.The previously reportedcomponent Lymphocytes % is no longer being reported.The previously reported component Monocytes % is no longer being reported.The previously reported component Eosinophils % is no longer being reported.The previously reported component Basophils % is no longer being reported.The previously reported component Absolute Neutrophils is no longer being reported.The previously reported component Absolute Lymphocytes is no longer being reported.The previously reported component Absolute Monocytes is no longer being reported.The previously reported component Absolute Eosinophils is no longer being reported.The previously reported component Absolute Basophils is no longer being reported.[facility] PrebleFerritinon 98-77-8966Mvvtfboy [Mass/Vol]24 ng/mL8 - 150 ng/mL [facility] PrebleFerritin [Mass/Vol]on 67-97-7832Jfiwasuyimmmjt and review of laboratory resultsNormalUniMount St. Mary Hospital FibrinogenOrdered By: Jennie Bishop on 70-02-0076Untfyhjpbv Coag (PPP) [Mass/Vol]281 mg/dL200 - 400 mg/dLUnCentervilleFibrinogen Coag (PPP) [Mass/Vol]Ordered By: Jennie Bishop on 73-37-0268Bwbeheontywxyh and review of laboratory resultsNoOhioHealth Dublin Methodist HospitalGlucose Test strip manual (Bld) [Mass/Vol]on 11-24-2023 Glucose [Mass/Vol]134 mg/cTKreq35 - 99 mg/dLUnCenterville Interpretation and review of laboratory resultsAbSelect Medical [facility] Clinic Rehabilitation Hospital, Edwin ShawGlucose [Mass/Vol]146 mg/pUXbfu74 - 99 mg/dLUnCentervilleInterpretation and review of laboratory resultsAbSelect Medical [facility], Edwin ShawGlucose [Mass/Vol]117 mg/fPVnhd92 - 99 mg/dLUnCentervilleInterpretation and review of laboratory resultsAbSelect Medical [facility], Edwin ShawGlucose [Mass/Vol]86 mg/dL74 - 99 mg/dLUnCentervilleInterpretation and review of laboratory resultsNoOhioHealth Dublin Methodist HospitalHepatic function 2000 panelon 25-98-9097Izcvvzp BCP dye [Mass/Vol]3.2 g/dLLow3.4 - 5.0 g/dLUnCentervilleALP [Catalytic activity/Vol]76 U/L33 - 136 U/[facility] HospitalALT With P-5'-P [Catalytic activity/Vol]29 U/L7 - 45 U/[facility] HospitalComment on above:Patients treated with Sulfasalazine may generate falsely decreased results for ALT.AST With P-5'-P [Catalytic activity/Vol]36 U/L9 - 39 U/L [facility] PrebleBilirubin [Mass/Vol]0.6 mg/dL0.0 - 1.2 mg/dL [facility] PrebleBilirubin.direct [Mass/Vol]0.2 mg/dL0.0 - 0.3 mg/dLK[facility]tering Health PrebleInterpretation and review of laboratory resultsAbUniversity Hospitals Geauga Medical CenterProtein [Mass/Vol]4.7 g/dLLow6.4 - 8.2 g/dLUnPomerene HospitalLD Lactate to pyruvate reaction [Catalytic activity/Vol]on 11-24-2023 Interpretation and review of laboratory resultsAbnormalUniMount St. Mary HospitalLactate Dehydrogenaseon 45-03-3878PNL Lactate to pyruvate reaction [Catalytic activity/Vol]270 U/LHigh84 - 246 U/[facility] Magnesiumon 80-41-6099Iqkghffdj [Mass/Vol]1.98 mg/dL1.60 - 2.40 mg/dLKettering Health PrebleManual differential performed Ql (Bld)on 11-24-2023 Basophils (Bld) [#/Vol]0.00 10*3/[facility] Basophils/100 WBC (Bld)0.0 %0.0 - 2.0 %[facility] PrebleCells Counted Total (Bld) [#]114 {cells}[facility] PrebleEosinophils (Bld) [#/Vol]0.01 10*3/[facility] HospitalEosinophils/100 WBC (Bld)0.9 %0.0 - 6.0 %[facility] PrebleLymphocytes (Bld) [#/Vol] 0.17 10*3/[facility] HospitalLymphocytes/100 WBC (Bld)13.2 % 13.0 - 44.0 %[facility] PrebleMonocytes (Bld) [#/Vol]0.08 10*3/[facility] HospitalMonocytes/100 WBC (Bld)6.1 %2.0 - 10.0 %[facility] PrebleOvalocytes LM Ql (Bld)FewKettering Health PrebleRB morphology finding Nom (Bld)See BelowUnCentervilleSegmented neutrophils (Bld) [#/Vol]1.04 10*3/[facility] Health AdministrationSegmented neutrophils/100 WBC (Bld)79.8 %40.0 - 80.0 %[facility] PrebleComment on above:Percent differential counts (%) should be interpreted in the context of the absolute cell counts (ce lls/uL).No Panel Informationon 77-84-8522QpbgjvphnqThe University of Toledo Medical CenterInterpretation and review of laboratory results NormalKettering Health PrebleInterpretation and review of laboratory resultsAbnoAvita Health SystemUnCentervilleRenal function 2000 panelon 52-51-1197Kthsibd BCP dye [Mass/Vol]3.2 g/dLLow3.4 - 5.0 g/dLUnCentervilleAnion gap [Moles/Vol]10 mmol/L10 - 20 mmol/[facility] HospitalCalcium [Mass/Vol]8.3 mg/dL Low8.6 - 10.6 mg/dLUnCentervilleChloride [Moles/Vol]107 mmol/L98 - 107 mmol/[facility] HospitalCO2 [Moles/Vol]27 mmol/L21 - 32 mmol/[facility] HospitalCreatinine [Mass/Vol]0.61 mg/dL0.50 - 1.05 mg/dLUnCentervilleeGFR- PINFUniWVUMedicine Harrison Community Hospital on above:Calculations of estimated GFR are performed using the 2020 CKD-EPI Study Refit equation without therace variable for the IDMS- Traceable creatinine methods. https://jasn.asnjournals.org/content//ASN.4494542152 Glucose [Mass/Vol]175 mg/vKIsyx83 - 99 mg/dLUnCenterville Interpretation and review of laboratory resultsAbUniversity Hospitals Geauga Medical CenterPhosphate [Mass/Vol]2.7 mg/dL2.5 - 4.9 mg/dLChildren's Hospital for Rehabilitation on above:The performance characteristics of phosphorus testing in heparinized plasma have been validated by the individual laboratory site where testing is performed. Testing on heparinized plasma is not approved by the FDA; however, such approval is not necessary.Potassium [Moles/Vol]3.5 mmol/L3.5 - 5.3 mmol/[facility] HospitalSodium [Moles/Vol]140 mmol/L136 - 145 mmol/[facility] HospitalUrea nitrogen [Mass/Vol]21 mg/dL6 - 23 mg/dLUnCentervilleUric Acidon 61-61-0282Zagmt [Mass/Vol] 3.5 mg/dL2.3 - 6.7 mg/dLUnKettering Health on above: Venipuncture immediately after or during the administration of Metamizole may lead to falsely low results. Testing should be performed immediately prior to Metamizole dosing. C-reactive proteinon 14-88-3901GZP [Mass/Vol]0.12 mg/dLNINF - 1.00 mg/dL [facility] PrebleCB W Auto Differential panel (Bld)on 82-27-4816Jmkxabejw (Bld) [#/Vol]0.00 10*3/[facility] Basophils/100 WBC (Bld)0.0 %0.0 - 2.0 %[facility] Eosinophils (Bld) [#/Vol]0.02 10*3/[facility] Eosinophils/100 WBC (Bld)2.1 %0.0 - 6.0 %[facility] Erythrocyte distribution width (RBC) [Ratio]16.3 %High11.5 - 14.5 %[facility] PrebleHematocrit (Bld) [Volume fraction]30.2 %Low36.0 - 46.0 % [facility] PrebleHemoglobin (Bld) [Mass/Vol]9.5 g/dLLow12.0 - 16.0 g/dLUnCentervilleImmaadams county regional medical center granulocytes (Bld) [#/Vol] 0.13 10*3/[facility] HospitalImhannibal regional hospital granulocytes/100 WBC (Bld) 13.4 %High0.0 - 0.9 %[facility] on above:Immature Granulocyte Count (IG) includes promyelocytes, myelocytes and metamyelocytes but does not include bands. Percent differential counts (%) should be interpreted in the context of the absolute cell counts (cells/UL).Interpretation and review of laboratory resultsAbnormalUniMount St. Mary HospitalLymphocytes (Bld) [#/Vol]0.20 10*3/uLLowKettering Health PrebleLymphocytes/100 WBC (Bld) 20.6 %13.0 - 44.0 %[facility] PrebleMCH (RBC) [Entitic mass]28.8 pg26.0 - 34.0 pgUnCentervilleMCHC (RBC) [Mass/Vol]31.5 g/dL Low32.0 - 36.0 g/dLUnCentervilleMCV (RBC) [Entitic vol]92 fL 80 - [address] Mary HospitalMonocytes (Bld) [#/Vol]0.06 10*3/uL [facility] HospitalMonocytes/100 WBC (Bld)6.2 %2.0 - 10.0 % [facility] PrebleNeutrophils (Bld) [#/Vol]0.56 10*3/uLLow [facility] PrebleComment on above:Percent differential counts (%) should be interpreted in the context of the absolute cell counts (cells/uL). Neutrophils/100 WBC (Bld)57.7 %40.0 - 80.0 %[facility] Nucleated RBC/100 WBC (Bld) [Ratio]0.0 %[facility] Platelets (Bld) [#/Vol]27 10*3/uLCritically [facility] RBC (Bld) [#/Vol]3.30 10*6/uLLowKettering Health PrebleWBC (Bld) [#/Vol]1.0 10*3/uLCritically [facility] CampusFerritinon 15-64-5654Xgruheak [Mass/Vol]29 ng/mL8 - 150 ng/mLUnCentervilleFerritin [Mass/Vol]on 35-01-5131Fhqtzrdkvihshr and review of laboratory resultsNormThe MetroHealth SystemFibrinogenon 51-27-9020Rkhobxansu Coag (PPP) [Mass/Vol]163 mg/cDXon282 - 400 mg/dLKettering Health PrebleFimissouri rehabilitation center Coag (PPP) [Mass/Vol]on 43-32-1013Gyoynkvtlxtrnw and review of laboratory resultsAbnormalUMercy Health St. Joseph Warren HospitalUnCentervilleGlucose Test strip manual (Bld) [Mass/Vol]on 11-23-2023 Glucose [Mass/Vol]125 mg/mXEqjy51 - 99 mg/dLKettering Health Preble Interpretation and review of laboratory resultsAbnoOhioHealth Dublin Methodist HospitalGlucose [Mass/Vol]124 mg/uKCcnz18 - 99 mg/dLKettering Health PrebleInterpretation and review of laboratory resultsAbSelect Medical [facility] Clinic Rehabilitation Hospital, Edwin ShawGlucose [Mass/Vol]149 mg/cDMksd08 - 99 mg/dLUnCentervilleInterpretation and review of laboratory resultsAbSelect Medical [facility] Rehabilitation Hospital, Edwin ShawLD Lactate to pyruvate reaction [Catalytic activity/Vol]on 09-15-6243Avvufvfycsrewt and review of laboratory resultsAbUniversity Hospitals Geauga Medical CenterLactate Dehydrogenase on 73-40-7326FMT Lactate to pyruvate reaction [Catalytic activity/Vol]255 U/L High84 - 246 U/[facility] HospitalMagnesiumon 77-40-0808Qoibsglxf [Mass/Vol]1.78 mg/dL1.60 - 2.40 mg/dLUnCentervilleNo Panel Informationon 12-46-1332SxnhjtkutmKettering Health PrebleInterpretation and review of laboratory resultsNoAvita Health SystemUnCentervilleUnCentervilleRB shape Nom (Bld)on 80-03-0800Ljwufnejke LM Ql (Bld)FewUC [facility] Hospital morphology finding Nom (Bld)See BelowKettering Health PrebleRenal function 2000 panelon 06-30-3517Iushceb BCP dye [Mass/Vol]3.3 g/dLLow3.4 - 5.0 g/dLKettering Health PrebleAnion gap [Moles/Vol]11 mmol/L10 - 20 mmol/[facility] HospitalCalcium [Mass/Vol]8.5 mg/dLLow8.6 - 10.6 mg/dLKettering Health PrebleChloride [Moles/Vol]106 mmol/L98 - 107 mmol/[facility] HospitalCO2 [Moles/Vol]27 mmol/L21 - 32 mmol/L [facility]bleCreatinine [Mass/Vol]0.55 mg/dL0.50 - 1.05 mg/dLKettering Health PrebleeGFR- PINFUniWVUMedicine Harrison Community Hospital on above:Calculations of estimated GFR are performed using the 2020 CKD-EPI Study Refit equation without therace variable for the IDMS- Traceable creatinine methods. https://jasn.asnjournals.org/content//ASN.6707308734 Glucose [Mass/Vol]178 mg/hEKokr19 - 99 mg/dLUnCenterville Interpretation and review of laboratory resultsAbnormalUMercy Health St. Joseph Warren HospitalPhosphate [Mass/Vol]3.5 mg/dL2.5 - 4.9 mg/dLUnKettering Health on above:The performance characteristics of phosphorus testing in heparinized plasma have been validated by the individual laboratory site where testing is performed. Testing on heparinized plasma is not approved by the FDA; however, such approval is not necessary.Potassium [Moles/Vol]4.0 mmol/L3.5 - 5.3 mmol/[facility] HospitalSodium [Moles/Vol]140 mmol/L136 - 145 mmol/[facility] HospitalUrea nitrogen [Mass/Vol]22 mg/dL6 - 23 mg/dLUnCentervilleUric Acidon 14-65-1883Pbmqk [Mass/Vol] 4.0 mg/dL2.3 - 6.7 mg/dLUnKettering Health on above: Venipuncture immediately after or during the administration of Metamizole may lead to falsely low results. Testing should be performed immediately prior to Metamizole dosing. C-reactive proteinon 03-83-1775ZBN [Mass/Vol]0.14 mg/dLNINF - 1.00 mg/dL [facility] PrebleCB W Auto Differential panel (Bld)on 66-18-0273Pwzncbjduav distribution width (RBC) [Ratio]16.0 %High11.5 - 14.5 % [facility] PrebleHematocrit (Bld) [Volume fraction]28.8 %Low36.0 - 46.0 %[facility] PrebleHemoglobin (Bld) [Mass/Vol]9.0 g/dLLow 12.0 - 16.0 g/dLUnCentervilleImmature granulocytes (Bld) [#/Vol]0.02 10*3/uLUnCentervilleImmature granulocytes/100 WBC (Bld)1.3 %High0.0 - 0.9 %[facility] PrebleComment on above: Immature Granulocyte Count (IG) includes promyelocytes, myelocytes and metamyelocytes but does not include bands. Percent differential counts (%) should be interpreted in the context of the absolute cell counts (cells/UL).MCH (RBC) [Entitic mass]28.6 pg26.0 - 34.0 pgUnCentervilleMCHC (RBC) [Mass/Vol]31.3 g/dLLow32.0 - 36.0 g/dLUnCentervilleMCV (RBC) [Entitic vol]91 fL80 - 100 fLUniversMichiana Behavioral Health CenterNucleated RBC/100 WBC (Bld) [Ratio]0.0 %[facility] PreblePlatelets (Bld) [#/Vol]30 10*3/uLCritically lowUnCentervilleRBC (Bld) [#/Vol]3.15 10*6/uLLowUnCentervilleWBC (Bld) [#/Vol]1.6 10*3/uLLowKettering Health PrebleThe previously reported component Neutrophils % is no longer being reported.The previously reportedcomponent Lymphocytes % is no longer being reported.The previously reported component Monocytes % is no longer being reported.The previously reported component Eosinophils % is no longer being reported.The previously reported component Basophils % is no longer being reported.The previously reported component Absolute Neutrophils is no longer being reported.The previously reported component Absolute Lymphocytes is no longer being reported.The previously reported component Absolute Monocytes is no longer being reported.The previously reported component Absolute Eosinophils is no longer being reported.The previously reported component Absolute Basophils is no longer being reported.[facility] PrebleFerritinon 58-32-1519Jzmogblv [Mass/Vol]33 ng/mL8 - 150 ng/mL [facility] PrebleFibrinogenon 85-39-0222Kwzuhscrgd Coag (PPP) [Mass/Vol]170 mg/cOIcq966 - 400 mg/dLUnCentervilleFibrinogen Coag (PPP) [Mass/Vol]on 13-22-5084Cafxwiznmtdpmu and review of laboratory resultsAbnoOhioHealth Dublin Methodist HospitalGlucose Test strip manual (Bld) [Mass/Vol]on 31-89-2830Vwilflk [Mass/Vol]116 mg/iBNigt56 - 99 mg/dLKettering Health Preble Interpretation and review of laboratory resultsAbSelect Medical Cleveland Clinic Rehabilitation Hospital, Edwin ShawGlucose [Mass/Vol]122 mg/pVAirl49 - 99 mg/dLUnCentervilleInterpretation and review of laboratory resultsAbSelect Medical [facility] Clinic Rehabilitation Hospital, Edwin ShawGlucose [Mass/Vol]95 mg/dL74 - 99 mg/dLUnCentervilleInterpretation and review of laboratory resultsNoOhioHealth Dublin Methodist HospitalGlucose [Mass/Vol]80 mg/dL74 - 99 mg/dLUnCentervilleInterpretation and review of laboratory resultsNoOhioHealth Dublin Methodist HospitalLactate Dehydrogenaseon 87-76-0593HCE Lactate to pyruvate reaction [Catalytic activity/Vol]252 U/[facility]84 - 246 U/[facility] Magnesiumon 38-21-6780Inmkmpikd [Mass/Vol]1.72 mg/dL1.60 - 2.40 mg/dLKettering Health PrebleManual differential performed Ql (Bld)on 11-22-2023 Basophils (Bld) [#/Vol]0.00 10*3/[facility] Basophils/100 WBC (Bld)0.0 %0.0 - 2.0 %[facility] PrebleCells Counted Total (Bld) [#]99 {cells}[facility]bleEosinophils (Bld) [#/Vol]0.00 10*3/[facility] HospitalEosinophils/100 WBC (Bld)0.0 %0.0 - 6.0 %[facility] PrebleLymphocytes (Bld) [#/Vol] 0.23 10*3/[facility] HospitalLymphocytes/100 WBC (Bld)14.1 % 13.0 - 44.0 %[facility]bleMonocytes (Bld) [#/Vol]0.16 10*3/[facility] HospitalMonocytes/100 WBC (Bld)10.1 %2.0 - 10.0 %[facility] PrebleOvalocytes LM Ql (Bld)[facility] PrebleRBC morphology finding Nom (Bld)See BelowUnCentervilleSegmented neutrophils (Bld) [#/Vol]1.20 10*3/[facility] HospitalSeented neutrophils/100 WBC (Bld)74.8 %40.0 - 80.0 %[facility] on above:Percent differential counts (%) should be interpreted in the context of the absolute cell counts (cells/uL).Variant lymphocytes (Bld) [#/Vol]0.02 10*3/[facility] HospitalVariant lymphocytes/100 WBC (Bld)1.0 %0.0 - 2.0 %[facility]bleNo Panel Informationon 50-74-7061Xkjemkpmpajdma and review of laboratory results AbnormalUnPomerene Hospital Interpretation and review of laboratory resultsAbnoAvita Health SystemInterpretation and review of laboratory resultsNoOhioHealth Dublin Methodist HospitalRenal function 2000 panel on 92-30-0481Unorspb BCP dye [Mass/Vol]3.2 g/dLLow3.4 - 5.0 g/dLUnCentervilleAnion gap [Moles/Vol]11 mmol/L10 - 20 mmol/[facility] HospitalCalcium [Mass/Vol]8.5 mg/dLLow8.6 - 10.6 mg/dLKettering Health PrebleChloride [Moles/Vol]107 mmol/L98 - 107 mmol/[facility] HospitalCO2 [Moles/Vol]27 mmol/L21 - 32 mmol/[facility] HospitalCreatinine [Mass/Vol]0.60 mg/dL0.50 - 1.05 mg/dLKettering Health PrebleeGFR- PINFUniWVUMedicine Harrison Community Hospital on above:Calculations of estimated GFR are performed using the 2020 CKD-EPI Study Refit equation without therace variable for the IDMS-Traceable creatinine methods. https://jasn.asnjournals.org/content//ASN.4153312487 Glucose [Mass/Vol]129 mg/bGBqnz50 - 99 mg/dLUnCenterville Phosphate [Mass/Vol]2.7 mg/dL2.5 - 4.9 mg/dLUnCenterville Comment on above:The performance characteristics of phosphorus testing in heparinized plasma have been validated by the individual laboratory site where testing is performed. Testing on heparinized plasma is not approved by the FDA; however, such approval is not necessary.Potassium [Moles/Vol]3.6 mmol/L3.5 - 5.3 mmol/[facility] HospitalSodium [Moles/Vol]141 mmol/L136 - 145 mmol/[facility] HospitalUrea nitrogen [Mass/Vol]22 mg/dL6 - 23 mg/dLUnCentervilleUric Acidon 69-31-6793Inzje [Mass/Vol] 3.9 mg/dL2.3 - 6.7 mg/dLUnCentervilleComment on above: Venipuncture immediately after or during the administration of Metamizole may lead to falsely low results. Testing should be performed immediately prior to Metamizole dosing. Blood type and Indirect antibody screen panel (Bld)on 75-79-7058OHP group Nom (Bld)AUnCentervilleBlood group antibody screen QlNegative [facility] PrebleD Ag Ql (Bld)PositiveUnCentervilleUnCentervilleC-reactive proteinon 07-00-3600CDP [Mass/Vol]0.17 mg/dLNINF - 1.00 mg/dLUnCentervilleCBC W Auto Differential panel (Bld)on 86-31-6557Cgxaqrdao (Bld) [#/Vol]0.00 10*3/uL [facility]bleBasophils/100 WBC (Bld)0.0 %0.0 - 2.0 % [facility]bleEosinophils (Bld) [#/Vol]0.01 10*3/uLUnCentervilleEosinophils/100 WBC (Bld)0.8 %0.0 - 6.0 %[facility] PrebleErythrocyte distribution width (RBC) [Ratio]15.9 %High11.5 - 14.5 %[facility] PrebleHematocrit (Bld) [Volume fraction]31.2 %Low36.0 - 46.0 %[facility]bleHemoglobin (Bld) [Mass/Vol]9.4 g/dLLow12.0 - 16.0 g/dLUnCentervilleImhannibal regional hospital granulocytes (Bld) [#/Vol]0.13 10*3/uLUnTrumbull Memorial Hospital granulocytes/100 WBC (Bld)10.2 %High0.0 - 0.9 %[facility] Comment on above:Immature Granulocyte Count (IG) includes promyelocytes, myelocytes and metamyelocytes but does not include bands. Percent differential counts (%) should be interpreted in the context of the absolute cell counts (cells/UL).Interpretation and review of laboratory resultsAbnormalUniversMichiana Behavioral Health CenterLymphocytes (Bld) [#/Vol]0.25 10*3/uLLowUnCentervilleLymphocytes/100 WBC (Bld)19.5 %13.0 - 44.0 %[facility] CenterH (RBC) [Entitic mass]27.6 pg26.0 - 34.0 pgUnAvita Health System Bucyrus HospitalHC (RBC) [Mass/Vol]30.1 g/dLLow32.0 - 36.0 g/dL [facility] PrebleMCV (RBC) [Entitic vol]92 fL80 - 100 fL [facility] PrebleMonocytes (Bld) [#/Vol]0.06 10*3/uLLow [facility]bleMonocytes/100 WBC (Bld)4.7 %2.0 - 10.0 % [facility] PrebleNeutrophils (Bld) [#/Vol]0.83 10*3/uLLow [facility] PrebleComment on above:Percent differential counts (%) should be interpreted in the context of the absolute cell counts (cells/uL). Neutrophils/100 WBC (Bld)64.8 %40.0 - 80.0 %[facility] Nucleated RBC/100 WBC (Bld) [Ratio]0.0 %[facility] Platelets (Bld) [#/Vol]29 10*3/uLCritically lowUnCenterville RBC (Bld) [#/Vol]3.41 10*6/uLLowKettering Health PrebleWBC (Bld) [#/Vol]1.3 10*3/uLWestern Reserve HospitalFerritinon 11-21-2023 Ferritin [Mass/Vol]32 ng/mL8 - 150 ng/mLK[facility]tering Health Preble Ferritin [Mass/Vol]on 46-56-8789Miruyvsikiejih and review of laboratory results [facility] CenterFibrinogenon 06-64-0117Ohxotjlhib Coag (PPP) [Mass/Vol]196 mg/eBYtr166 - 400 mg/dLKettering Health Preble Fibrinogen Coag (PPP) [Mass/Vol]on 86-03-0975Egujhyitwayojw and review of laboratory resultsAbSelect Medical Cleveland Clinic Rehabilitation Hospital, Edwin ShawGlucose Test strip manual (Bld) [Mass/Vol]on 09-46-8913Sypsxwp [Mass/Vol]155 mg/jXWcnv52 - 99 mg/dLUnCenterville Interpretation and review of laboratory resultsAbSelect Medical [facility] Rehabilitation Hospital, Edwin ShawGlucose [Mass/Vol]99 mg/dL74 - 99 mg/dLUnCentervilleInterpretation and review of laboratory resultsNoOhioHealth Dublin Methodist Hospital Glucose [Mass/Vol]260 mg/iMPiot68 - 99 mg/dLUnCenterville Interpretation and review of laboratory resultsAbSelect Medical [facility] Rehabilitation Hospital, Edwin ShawGlucose [Mass/Vol]118 mg/jPMwwl58 - 99 mg/dLUnCentervilleInterpretation and review of laboratory resultsAbSelect Medical [facility] Rehabilitation Hospital, Edwin ShawLDH Lactate to pyruvate reaction [Catalytic activity/Vol]on 11-21-2023 Interpretation and review of laboratory resultsAbUniversity Hospitals Geauga Medical CenterLactate Dehydrogenaseon 42-86-8583GTL Lactate to pyruvate reaction [Catalytic activity/Vol]302 U/LHigh84 - 246 U/[facility] Magnesiumon 85-51-7732Qztiguenb [Mass/Vol]1.68 mg/dL1.60 - 2.40 mg/dLKettering Health PrebleNo Panel Informationon 41-29-5266QigftxzistCentervilleInterpretation and review of laboratory resultsNoAvita Health SystemUnCentervilleUnCentervilleRB shape Nom (Bld)on 61-71-9873Kqtwqsbgzh LM Ql (Bld)FewUC [facility] morphology finding Nom (Bld)See BelowUnCentervilleRenal function 2000 panelon 58-37-0974Rwunire BCP dye [Mass/Vol]3.5 g/dL3.4 - 5.0 g/dLUnCentervilleAnion gap [Moles/Vol]11 mmol/L10 - 20 mmol/[facility] HospitalCalcium [Mass/Vol]8.6 mg/dL8.6 - 10.6 mg/dLUnCentervilleChloride [Moles/Vol]105 mmol/L98 - 107 mmol/[facility] HospitalCO2 [Moles/Vol]26 mmol/L21 - 32 mmol/[facility] HospitalCreatinine [Mass/Vol]0.77 mg/dL0.50 - 1.05 mg/dLKettering Health PrebleGFR/1.73 sq M.predicted among non-blacks MDRD (S/P/Bld) [Vol rate/Area]85 mL/min/{1.73_m2}- PINFUMercy Health St. Joseph Warren HospitalComment on above: Calculations of estimated GFR are performed using the 2020 CKD-EPI Study Refit equation without therace variable for the IDMS-Traceable creatinine methods. https://jasn.asnjournals.org/content//ASN.7853723751 Glucose [Mass/Vol]167 mg/fYLhdy60 - 99 mg/dLUnCenterville Interpretation and review of laboratory resultsAbnormalUMercy Health St. Joseph Warren HospitalPhosphate [Mass/Vol]3.3 mg/dL2.5 - 4.9 mg/dLUnKettering Health on above:The performance characteristics of phosphorus testing in heparinized plasma have been validated by the individual laboratory site where testing is performed. Testing on heparinized plasma is not approved by the FDA; however, such approval is not necessary.Potassium [Moles/Vol]4.2 mmol/L3.5 - 5.3 mmol/[facility] HospitalSodium [Moles/Vol]138 mmol/L136 - 145 mmol/[facility] HospitalUrea nitrogen [Mass/Vol]20 mg/dL6 - 23 mg/dLKettering Health PrebleUric Acidon 68-22-1131Nztsz [Mass/Vol] 3.9 mg/dL2.3 - 6.7 mg/dLUnKettering Health on above: Venipuncture immediately after or during the administration of Metamizole may lead to falsely low results. Testing should be performed immediately prior to Metamizole dosing. C-reactive proteinon 86-25-3356ULN [Mass/Vol]0.26 mg/dLNINF - 1.00 mg/dL [facility]bleCB W Auto Differential panel (Bld)on 33-38-7859Eenyggdch (Bld) [#/Vol]0.00 10*3/[facility] Basophils/100 WBC (Bld)0.0 %0.0 - 2.0 %[facility] Eosinophils (Bld) [#/Vol]0.00 10*3/[facility] Eosinophils/100 WBC (Bld)0.0 %0.0 - 6.0 %[facility] Erythrocyte distribution width (RBC) [Ratio]15.5 %High11.5 - 14.5 %[facility] PrebleHematocrit (Bld) [Volume fraction]28.5 %Low36.0 - 46.0 % [facility]bleHemoglobin (Bld) [Mass/Vol]8.7 g/dLLow12.0 - 16.0 g/dLUnCentervilleImhannibal regional hospital granulocytes (Bld) [#/Vol] 0.05 10*3/uLKettering Health PrebleImhannibal regional hospital granulocytes/100 WBC (Bld) 2.1 %High0.0 - 0.9 %[facility] on above:Immature Granulocyte Count (IG) includes promyelocytes, myelocytes and metamyelocytes but does not include bands. Percent differential counts (%) should be interpreted in the context of the absolute cell counts (cells/UL).Interpretation and review of laboratory resultsAbnormalUniMount St. Mary HospitalLymphocytes (Bld) [#/Vol]0.49 10*3/uLWestern Reserve HospitalLymphocytes/100 WBC (Bld) 20.3 %13.0 - 44.0 %[facility] CenterH (RBC) [Entitic mass]27.5 pg26.0 - 34.0 pgUnAvita Health System Bucyrus HospitalHC (RBC) [Mass/Vol]30.5 g/dL Low32.0 - 36.0 g/dLUnAvita Health System Bucyrus HospitalV (RBC) [Entitic vol]90 fL 80 - [address] HospitalMonocytes (Bld) [#/Vol]0.35 10*3/uL [facility]bleMonocytes/100 WBC (Bld)14.5 %2.0 - 10.0 % [facility] PrebleNeutrophils (Bld) [#/Vol]1.52 10*3/uLUnKettering Health on above:Percent differential counts (%) should be interpreted in the context of the absolute cell counts (cells/uL). Neutrophils/100 WBC (Bld)63.1 %40.0 - 80.0 %[facility] Nucleated RBC/100 WBC (Bld) [Ratio]0.0 %[facility] Platelets (Bld) [#/Vol]34 10*3/uLCritically lowKettering Health Preble RBC (Bld) [#/Vol]3.16 10*6/[facility] HospitalWBC (Bld) [#/Vol]2.4 10*3/[facility] North HospitalUnCentervilleFerritinon 42-62-3021Fwtoicvv [Mass/Vol]35 ng/mL8 - 150 ng/mLKettering Health PrebleFerritin [Mass/Vol]on 07-73-3639Uapxkwbytujzkw and review of laboratory resultsNoAvita Health SystemFibrinogenon 29-89-1833Pezhrnlpgv Coag (PPP) [Mass/Vol]192 mg/rTIho610 - 400 mg/dLUnCentervilleFimissouri rehabilitation center Coag (PPP) [Mass/Vol]on 11-20-2023 Interpretation and review of laboratory resultsAbnoOhioHealth Dublin Methodist HospitalGlucose Test strip manual (Bld) [Mass/Vol]on 10-39-3726Dvmcgti [Mass/Vol]94 mg/dL74 - 99 mg/dLUnCentervilleInterpretation and review of laboratory resultsNoOhioHealth Grady Memorial HospitalGlucose [Mass/Vol]77 mg/dL74 - 99 mg/dLUnCentervilleInterpretation and review of laboratory resultsNoOhioHealth Pickerington Methodist HospitalLDH Lactate to pyruvate reaction [Catalytic activity/Vol]on 27-27-3661Rfsqpzpkbuggfl and review of laboratory results AbnormalUnCentervilleLactate Dehydrogenaseon 07-08-5942DQW Lactate to pyruvate reaction [Catalytic activity/Vol]313 U/LHigh84 - 246 U/L [facility] PrebleMagnesiumon 58-94-9932Mvrfesgqv [Mass/Vol]1.81 mg/dL1.60 - 2.40 mg/dLUnCentervilleNo Panel Informationon 83-27-1916FdfquedabhCentervilleInterpretation and review of laboratory resultsNoOhioHealth Dublin Methodist HospitalRenal function 2000 panelon 93-02-2105Tjfvsra BCP dye [Mass/Vol]3.4 g/dL3.4 - 5.0 g/dLUnCentervilleAnion gap [Moles/Vol]12 mmol/L10 - 20 mmol/[facility] HospitalCalcium [Mass/Vol]8.8 mg/dL 8.6 - 10.6 mg/dLKettering Health PrebleChloride [Moles/Vol]107 mmol/L 98 - 107 mmol/[facility] HospitalCO2 [Moles/Vol]25 mmol/L21 - 32 mmol/[facility] HospitalCreatinine [Mass/Vol]0.53 mg/dL0.50 - 1.05 mg/dLUnCentervilleeGFR- PINFUniWVUMedicine Harrison Community Hospital on above:Calculations of estimated GFR are performed using the 2020 CKD-EPI Study Refit equation without therace variable for the IDMS- Traceable creatinine methods. https://jasn.asnjournals.org/content/early//ASN.8377957404 Glucose [Mass/Vol]105 mg/bWAanr58 - 99 mg/dLUnCenterville Interpretation and review of laboratory resultsAbnormalUMercy Health St. Joseph Warren HospitalPhosphate [Mass/Vol]3.0 mg/dL2.5 - 4.9 mg/dLUnKettering Health on above:The performance characteristics of phosphorus testing in heparinized plasma have been validated by the individual laboratory site where testing is performed. Testing on heparinized plasma is not approved by the FDA; however, such approval is not necessary.Potassium [Moles/Vol]3.8 mmol/L3.5 - 5.3 mmol/[facility] HospitalSodium [Moles/Vol]140 mmol/L136 - 145 mmol/[facility] HospitalUrea nitrogen [Mass/Vol]15 mg/dL6 - 23 mg/dLUnCentervilleUric Acidon 15-23-8698Amkyn [Mass/Vol] 3.6 mg/dL2.3 - 6.7 mg/dLUnKettering Health on above: Venipuncture immediately after or during the administration of Metamizole may lead to falsely low results. Testing should be performed immediately prior to Metamizole dosing. Basic metabolic 2000 panelon 41-14-8680Dxofq gap [Moles/Vol]13 mmol/L10 - 20 mmol/[facility] HospitalCalcium [Mass/Vol]8.7 mg/dL8.6 - 10.6 mg/dLUnCentervilleChloride [Moles/Vol]108 mmol/LHigh98 - 107 mmol/[facility] HospitalCO2 [Moles/Vol]25 mmol/L21 - 32 mmol/L [facility] PrebleCreatinine [Mass/Vol]0.60 mg/dL0.50 - 1.05 mg/dLUnCentervilleeGFR- PINFUniMount St. Mary HospitalCommclaren central [place] on above:Calculations of estimated GFR are performed using the 2020 CKD-EPI Study Refit equation without therace variable for the IDMS- Traceable creatinine methods. https://jasn.asnjournals.org/content//ASN.9355245399 Glucose [Mass/Vol]209 mg/sVIwzt36 - 99 mg/dLUnCenterville Potassium [Moles/Vol]4.0 mmol/L3.5 - 5.3 mmol/[facility] Sodium [Moles/Vol]142 mmol/L136 - 145 mmol/[facility] Urea nitrogen [Mass/Vol]13 mg/dL6 - 23 mg/dLUnGreene Memorial Hospital- reactive proteinon 89-17-4077DXB [Mass/Vol]0.38 mg/dLNINF - 1.00 mg/dLUnCentervilleCB W Auto Differential panel (Bld)on 63-46-6834Bppatnutv (Bld) [#/Vol]0.01 10*3/[facility] HospitalBasophils/100 WBC (Bld)0.8 %0.0 - 2.0 %[facility] PrebleEosinophils (Bld) [#/Vol] 0.01 10*3/uLKettering Health PrebleEosinophils/100 WBC (Bld)0.8 %0.0 - 6.0 %[facility] PrebleErythrocyte distribution width (RBC) [Ratio]15.5 %High11.5 - 14.5 %[facility] PrebleHematocrit (Bld) [Volume fraction]33.3 %Low36.0 - 46.0 %[facility] Hemoglobin (Bld) [Mass/Vol]10.0 g/dLLow12.0 - 16.0 g/dLUnCentervilleImhannibal regional hospital granulocytes (Bld) [#/Vol]0.02 10*3/uLKettering Health PrebleImhannibal regional hospital granulocytes/100 WBC (Bld)1.6 %High0.0 - 0.9 %[facility] on above:Immature Granulocyte Count (IG) includes promyelocytes, myelocytes and metamyelocytes but does not include bands. Percent differential counts (%) should be interpreted in the context of the absolute c ell counts (cells/UL).Interpretation and review of laboratory resultsAbnormal [facility] PrebleLymphocytes (Bld) [#/Vol]0.28 10*3/uLCleveland Clinic Avon HospitalLymphocytes/100 WBC (Bld)21.7 %13.0 - 44.0 % [facility] (RBC) [Entitic mass]27.5 pg26.0 - 34.0 pg [facility] (RBC) [Mass/Vol]30.0 g/dLLow32.0 - 36.0 g/dLUnAvita Health System Bucyrus HospitalV (RBC) [Entitic vol]92 fL80 - 100 fL [facility]bleMonocytes (Bld) [#/Vol]0.02 10*3/uLCleveland Clinic Avon HospitalMonocytes/100 WBC (Bld)1.6 %2.0 - 10.0 % [facility] PrebleNeutrophils (Bld) [#/Vol]0.95 10*3/uLLow [facility] on above:Percent differential counts (%) should be interpreted in the context of the absolute cell counts (cells/uL). Neutrophils/100 WBC (Bld)73.5 %40.0 - 80.0 %[facility] Nucleated RBC/100 WBC (Bld) [Ratio]0.0 %[facility] Platelets (Bld) [#/Vol]33 10*3/uLCritically lowKettering Health Preble Comment on above:Previous result verified on 11/18/2023 1738 on specimen/case [id number] called with component PLT for procedure CBC and Auto Differential with value 39 x10*3/uL.RBC (Bld) [#/Vol]3.64 10*6/[facility] HospitalWBC (Bld) [#/Vol]1.3 10*3/[facility] North HospitalFerritinon 78-51-1537Ikifsbzb [Mass/Vol]35 ng/mL8 - 150 ng/mLUnCentervilleFibrinogenon 54-70-9002Dyzpypchpk Coag (PPP) [Mass/Vol] 221 mg/dL200 - 400 mg/dLUnCentervilleFimissouri rehabilitation center Coag (PPP) [Mass/Vol]on 28-87-8963Jcswfmlnjumaas and review of laboratory resultsNormTriHealthGlucose Test strip manual (Bld) [Mass/Vol]on 50-89-7596Siqvbea [Mass/Vol]130 mg/jXMblh84 - 99 mg/dLUnCentervilleInterpretation and review of laboratory resultsAbSelect Medical [facility] Clinic Rehabilitation Hospital, Edwin ShawGlucose [Mass/Vol]77 mg/dL74 - 99 mg/dLUnCentervilleInterpretation and review of laboratory resultsNoOhioHealth Dublin Methodist HospitalGlucose [Mass/Vol]199 mg/rLRxur66 - 99 mg/dLUnCentervilleInterpretation and review of laboratory resultsAbSelect Medical [facility], Edwin ShawGlucose [Mass/Vol]147 mg/zMIsha26 - 99 mg/dLUnCentervilleInterpretation and review of laboratory resultsAbnoLakeHealth Beachwood Medical CenterUnCentervilleHepatic function 2000 panelon 97-41-7731Jmcvthk BCP dye [Mass/Vol]3.6 g/dL3.4 - 5.0 g/dL [facility] PrebleALP [Catalytic activity/Vol]86 U/L33 - 136 U/L [facility] PrebleALT With P-5'-P [Catalytic activity/Vol]21 U/L7 - 45 U/[facility] HospitalComment on above:Patients treated with Sulfasalazine may generate falsely decreased results for ALT.AST With P-5'-P [Catalytic activity/Vol]29 U/L9 - 39 U/[facility] Bilirubin [Mass/Vol]0.8 mg/dL0.0 - 1.2 mg/dLUnCenterville Bilirubin.direct [Mass/Vol]0.2 mg/dL0.0 - 0.3 mg/dLUnCentervilleProtein [Mass/Vol]5.5 g/dLLow6.4 - 8.2 g/dLUnCentervilleLactate Dehydrogenaseon 11-69-1980HSE Lactate to pyruvate reaction [Catalytic activity/Vol]329 U/LHigh84 - 246 U/LUnCenterville Magnesiumon 31-13-2740Lngbciimx [Mass/Vol]1.75 mg/dL1.60 - 2.40 mg/dLUnCentervilleNo Panel Informationon 05-74-7574Xsibzeqvbesbtb and review of laboratory resultsNormalUniPike Community HospitalInterpretation and review of laboratory resultsAbnormal [facility] HospitalInterpretation and review of laboratory resultsNormalUniMercy Health St. Charles HospitalPhosphoruson 54-87-3686Mjxyycilt [Mass/Vol]2.6 mg/dL2.5 - 4.9 mg/dLUnKettering Health on above:The performance characteristics of phosphorus testing in heparinized plasma have been validated by the individual laboratory site where testing is performed. Testing on heparinized plasma is not approved by the FDA; however, such approval is not necessary.RBC shape Nom (Bld)on 55-06-6685Slzdnoksipg Ql (Bld)Mild [facility] PrebleOvalocytes LM Ql (Bld)FewUnCentervilleRB morphology finding Nom (Bld)See BelowUnCentervilleUric Acidon 56-19-5258Dzqvr [Mass/Vol]4.1 mg/dL2.3 - 6.7 mg/dL [facility] on above:Venipuncture immediately after or during the administration of Metamizole may lead to falsely low results. Testing should be performed immediately prior to Metamizole dosing. Blood type and Indirect antibody screen panel (Bld)on 20-81-0629GZS group Nom (Bld)AUnCentervilleBlood group antibody screen QlNegative [facility] PrebleD Ag Ql (Bld)PositiveUnCentervilleUnCentervilleCBC W Auto Differential panel (Bld)on 07-88-9968Ehfvftkppep distribution width (RBC) [Ratio]15.5 %High11.5 - 14.5 % [facility] PrebleHematocrit (Bld) [Volume fraction]30.9 %Low36.0 - 46.0 %[facility] PrebleHemoglobin (Bld) [Mass/Vol]9.3 g/dLLow 12.0 - 16.0 g/dLUnCentervilleImmaadams county regional medical center granulocytes (Bld) [#/Vol]0.01 10*3/uLUniversity Hospitals Cleveland Medical Center granulocytes/100 WBC (Bld)0.6 %0.0 - 0.9 %[facility] PrebleComment on above: Immature Granulocyte Count (IG) includes promyelocytes, myelocytes and metamyelocytes but does not include bands. Percent differential counts (%) should be interpreted in the context of the absolute cell counts (cells/UL).MCH (RBC) [Entitic mass]27.5 pg26.0 - 34.0 pgUnCentervilleMCHC (RBC) [Mass/Vol]30.1 g/dLLow32.0 - 36.0 g/dLKettering Health PrebleMCV (RBC) [Entitic vol]91 fL80 - [address] Mary HospitalNucleated RBC/100 WBC (Bld) [Ratio]0.0 %[facility] PreblePlatelets (Bld) [#/Vol]39 10*3/uLCritically lowUnCentervilleRB (Bld) [#/Vol]3.38 10*6/uLLowKettering Health PrebleWBC (Bld) [#/Vol]1.6 10*3/uLWestern Reserve HospitalThe previously reported component Neutrophils % is no longer being reported.The previously reportedcomponent Lymphocytes % is no longer being reported.The previously reported component Monocytes % is no longer being reported.The previously reported component Eosinophils % is no longer being reported.The previously reported component Basophils % is no longer being reported.The previously reported component Absolute Neutrophils is no longer being reported.The previously reported component Absolute Lymphocytes is no longer being reported.The previously reported component Absolute Monocytes is no longer being reported.The previously reported component Absolute Eosinophils is no longer being reported.The previously reported component Absolute Basophils is no longer being reported.[facility] PrebleComprehensive metabolic 2000 panelon 41-93-6572Cfjkuez BCP dye [Mass/Vol]3.3 g/dLLow3.4 - 5.0 g/dLUnCentervilleALP [Catalytic activity/Vol]77 U/L33 - 136 U/[facility] HospitalALT With P-5'-P [Catalytic activity/Vol]20 U/L7 - 45 U/[facility] on above:Patients treated with Sulfasalazine may generate falsely decreased results for ALT.Anion gap [Moles/Vol]13 mmol/L10 - 20 mmol/L [facility] PrebleAST With P-5'-P [Catalytic activity/Vol]27 U/L9 - 39 U/[facility] HospitalBilirubin [Mass/Vol]0.8 mg/dL0.0 - 1.2 mg/dLUnCentervilleCalcium [Mass/Vol]8.5 mg/dLLow8.6 - 10.6 mg/dLUnCentervilleChloride [Moles/Vol]108 mmol/LHigh98 - 107 mmol/[facility] HospitalCO2 [Moles/Vol]25 mmol/L21 - 32 mmol/L [facility] PrebleCreatinine [Mass/Vol]0.56 mg/dL0.50 - 1.05 mg/dLUnCentervilleeGFR- PINFUniWVUMedicine Harrison Community Hospital on above:Calculations of estimated GFR are performed using the 2020 CKD-EPI Study Refit equation without therace variable for the IDMS- Traceable creatinine methods. https://jasn.asnjournals.org/content//ASN.2560723609 Glucose [Mass/Vol]100 mg/wNOzpq90 - 99 mg/dLUnCenterville Interpretation and review of laboratory resultsAbnoAvita Health SystemPotassium [Moles/Vol]3.8 mmol/L3.5 - 5.3 mmol/[facility] HospitalProtein [Mass/Vol]5.0 g/dLLow6.4 - 8.2 g/dLUnCentervilleSodium [Moles/Vol]142 mmol/L136 - 145 mmol/LUnCentervilleUrea nitrogen [Mass/Vol]13 mg/dL6 - 23 mg/dLUnCentervilleGlucose Test strip manual (Bld) [Mass/Vol]on 61-80-3068Cekmuym [Mass/Vol]139 mg/zTHjoq40 - 99 mg/dLUnCenterville Interpretation and review of laboratory resultsAbnormalUniPike Community HospitalGlucose [Mass/Vol]92 mg/dL74 - 99 mg/dLUnCentervilleInterpretation and review of laboratory resultsNormalUTrumbull Regional Medical Center LDH Lactate to pyruvate reaction [Catalytic activity/Vol]on 11-18-2023 Interpretation and review of laboratory resultsAbnoOhioHealth Dublin Methodist HospitalLactate Dehydrogenaseon 73-35-9767ECQ Lactate to pyruvate reaction [Catalytic activity/Vol]290 U/LHigh84 - 246 U/L [facility] PrebleMagnesiumon 19-13-8062Nuntwoaia [Mass/Vol]1.75 mg/dL1.60 - 2.40 mg/dLUnCentervilleManual differential performed Ql (Bld)on 15-67-0192Zsztcpzfe (Bld) [#/Vol]0.00 10*3/[facility] HospitalBasophils/100 WBC (Bld)0.0 %0.0 - 2.0 %[facility] PrebleCells Counted Total (Bld) [#]117 {cells}[facility] PrebleEosinophils (Bld) [#/Vol]0.01 10*3/[facility] HospitalEosinophils/100 WBC (Bld)0.8 %0.0 - 6.0 %[facility] PrebleHypochromia Ql (Bld)MildUnCentervilleLymphocytes (Bld) [#/Vol]0.41 10*3/uLLowUnCentervilleLyhocytes/100 WBC (Bld)25.6 %13.0 - 44.0 %[facility] PrebleMonocytes (Bld) [#/Vol]0.16 10*3/[facility] HospitalMonocytes/100 WBC (Bld)10.3 %2.0 - 10.0 %[facility] PrebleMyelocytes (Bld) [#/Vol]0.01 10*3/[facility] HospitalMyelocytes/100 WBC (Bld)0.9 %0.0 - 0.0 % [facility] PrebleOvalocytes LM Ql (Bld)[facility] PrebleRB morphology finding Nom (Bld)See BelowUnCentervilleSegmented neutrophils (Bld) [#/Vol]0.93 10*3/[facility] neutrophils/100 WBC (Bld)58.1 %40.0 - 80.0 %[facility] on above:Percent differential counts (%) should be interpreted in the context of the absolute cell counts (cells/uL).Variant lymphocytes (Bld) [#/Vol]0.07 10*3/[facility] HospitalVariant lymphocytes/100 WBC (Bld)4.3 %0.0 - 2.0 %[facility] PrebleNo Panel Informationon 24-65-3305Sycmdjxwokzqbe and review of laboratory results AbnormalUnPomerene Hospital Interpretation and review of laboratory resultsNormalUniPike Community HospitalUric Acidon 28-01-3420Lmuyr [Mass/Vol] 3.9 mg/dL2.3 - 6.7 mg/dLChildren[facility] Hospital for Rehabilitation on above: Venipuncture immediately after or during the administration of Metamizole may lead to falsely low results. Testing should be performed immediately prior to Metamizole dosing. CBC W Auto Differential panel (Bld)on 26-73-9295Qfrvwcpoe (Bld) [#/Vol]0.00 10*3/[facility] on above:Automated WBC differential has been confirmed by manual smear.Basophils/100 WBC (Bld)0.0 %0.0 - 2.0 %[facility] PrebleEosinophils (Bld) [#/Vol]0.06 10*3/uL [facility] PrebleEosinophils/100 WBC (Bld)3.1 %0.0 - 6.0 % [facility] PrebleErythrocyte distribution width (RBC) [Ratio] 15.9 %High11.5 - 14.5 %[facility] PrebleHematocrit (Bld) [Volume fraction]31.2 %Low36.0 - 46.0 %[facility] PrebleHemoglobin (Bld) [Mass/Vol]9.9 g/dLLow12.0 - 16.0 g/dLUnCenterville Immature granulocytes (Bld) [#/Vol]0.01 10*3/uLKettering Health Preble Immature granulocytes/100 WBC (Bld)0.5 %0.0 - 0.9 %[facility] on above:Immature Granulocyte Count (IG) includes promyelocytes, myelocytes and metamyelocytes but does not include bands. Percent differential counts (%) should be interpreted in the context of the absolute c ell counts (cells/UL).Interpretation and review of laboratory resultsAbnormal [facility] PrebleLymphocytes (Bld) [#/Vol]0.69 10*3/uLLow [facility] PrebleLymphocytes/100 WBC (Bld)35.6 %13.0 - 44.0 % [facility] CenterH (RBC) [Entitic mass]28.1 pg26.0 - 34.0 pg [facility] CenterHC (RBC) [Mass/Vol]31.7 g/dLLow32.0 - 36.0 g/dLUnAvita Health System Bucyrus HospitalV (RBC) [Entitic vol]89 fL80 - 100 fL [facility] PrebleMonocytes (Bld) [#/Vol]0.23 10*3/uLUnCentervilleMonocytes/100 WBC (Bld)11.9 %2.0 - 10.0 %[facility] PrebleNeutrophils (Bld) [#/Vol]0.95 10*3/uLLowChildren's Hospital for Rehabilitation on above:Percent differential counts (%) should be interpreted in the context of the absolute cell counts (cells/uL). Neutrophils/100 WBC (Bld)48.9 %40.0 - 80.0 %[facility] Nucleated RBC/100 WBC (Bld) [Ratio]0.0 %[facility] Platelets (Bld) [#/Vol]45 10*3/[facility] HospitalRBC (Bld) [#/Vol]3.52 10*6/[facility] HospitalWBC (Bld) [#/Vol]1.9 10*3/[facility] HospitalUnCenterville Comprehensive metabolic 2000 panelon 11-06-9716Dedisxe BCP dye [Mass/Vol]3.3 g/dLLow3.4 - 5.0 g/dLUnCentervilleALP [Catalytic activity/Vol]84 U/L33 - 136 U/[facility] HospitalALT With P-5'-P [Catalytic activity/Vol]22 U/L7 - 45 U/[facility] on above:Patients treated with Sulfasalazine may generate falsely decreased results for ALT.Anion gap [Moles/Vol]13 mmol/L10 - 20 mmol/[facility] HospitalAST With P-5'-P [Catalytic activity/Vol]28 U/L9 - 39 U/[facility] HospitalBilirubin [Mass/Vol]0.8 mg/dL0.0 - 1.2 mg/dLUnCentervilleCalcium [Mass/Vol]8.1 mg/dLLow8.6 - 10.3 mg/dLUnCentervilleChloride [Moles/Vol]107 mmol/L98 - 107 mmol/[facility] HospitalCO2 [Moles/Vol]25 mmol/L21 - 32 mmol/[facility] HospitalCreatinine [Mass/Vol]0.59 mg/dL0.50 - 1.05 mg/dLUnCentervilleeGFR- PINFUniWVUMedicine Harrison Community Hospital on above:Calculations of estimated GFR are performed using the 2020 CKD-EPI Study Refit equation without therace variable for the IDMS-Traceable creatinine methods. https://jasn.asnjournals.org/content//ASN.8191580619 Glucose [Mass/Vol]93 mg/dL74 - 99 mg/dLK[facility]tering Health Preble Potassium [Moles/Vol]4.0 mmol/L3.5 - 5.3 mmol/[facility] Protein [Mass/Vol]5.1 g/dLLow6.4 - 8.2 g/dLK[facility]tering Health Pre[facility] Sodium [Moles/Vol]141 mmol/L136 - 145 mmol/[facility] Urea nitrogen [Mass/Vol]11 mg/dL6 - 23 mg/dLK[facility] Health [facility] Immunoglobulins (IgG, IgA, IgM)Ordered By: Todd Deluca on 04-91-1379YjC [Mass/Vol]mg/dLLow70 - 400 mg/dLKettering Health PrebleIgG [Mass/Vol] 526 mg/bFGof035 - 1600 mg/dLUnCentervilleIgM [Mass/Vol]mg/dL Low40 - 230 mg/dLUnCentervilleInterpretation and review of laboratory resultsAbnoAvita Health SystemMONOCLONAL PROTEINS MAY CAUSE FALSELY LOW RESULTS IN THIS ASSAY. SERUM PROTEIN ELECTROPHORESIS SHOULD BE DONE THE FIRST TEST TO EVALUATE MONOCLONAL GAMMOPATHY.[facility] Medical CenterLactate dehydrogenaseon 75-32-6699JQE Lactate to pyruvate reaction [Catalytic activity/Vol]298 U/LHigh84 - 246 U/[facility] HospitalNo Panel Informationon 76-43-1781Rqinptohzxtikm and review of laboratory resultsAbUniversity Hospitals Geauga Medical CenterUnCentervilleUrate [Mass/Vol]on 56-47-3608Rnbhgjrxnlhfwn and review of laboratory resultsNoAvita Health SystemUric acidon 11-17-2023 Urate [Mass/Vol]4.0 mg/dL2.3 - 6.7 mg/dLKettering Health PrebleComment on above:Venipuncture immediately after or during the administration of Metamizole may lead to falsely low results. Testing should be performed immediately prior to Metamizole dosing. COVID-19 SOFIAOrdered By: Fabiola Palumbo on 18-51-0592INJJ-CoV+SARS-CoV-2 (COVID- 19) Ag IA.rapid Ql (Resp)PositiveNegativeFirelands Regional Medical Center Comment on above:This is a duplicate Yanni SARS Antigen (JOCELYNE) result to be used for statistical tracking purpose only.No Panel InformationOrdered By: Fabiola Palumbo on 83-97-2754VHYG Antigen (LFIA)[facility] InstituteARS Antigen (LFIA)[facility] HospitalAlanine aminotransferase [Enzymatic activity/volume] in Serum or PlasmaOrdered By: Fabiola Marinelli on 95-80-2119MEH [Catalytic activity/Vol]19 U/L7[facility] HospitalALT [Catalytic activity/Vol]Alanine aminotransferase [Enzymatic activity/volume] in Serum or PlasmaSalem City HospitalAlbumin [Mass/volume] in Serum or Plasma by Bromocresol green (BCG) dye binding metho Ordered By: Fabiola Marinelli on 43-76-7633Lxxicab BCG dye [Mass/Vol]3.4 g/dLLow3.5-5.7 [facility] HospitalAlbumin BCG dye [Mass/Vol]Albumin [Mass/volume] in Serum or Plasma by Bromocresol green (BCG) dye binding methoLow3.5-5.7 [facility] HospitalAlkaline phosphatase [Enzymatic activity/volume] in Serum or PlasmaOrdered By: Fabiola Marinelli on 42-85-7399BFJ [Catalytic activity/Vol]105 U/XLuyl86-466YiewvbsgjSalem City HospitalALP [Catalytic activity/Vol]Alkaline phosphatase [Enzymatic activity/volume] in Serum or BjzbzbHxtd61-822NdnwnuppzSalem City HospitalAnisocytosis LM Ql (Bld)Ordered By: Fabiola Marinelli on 11-07-1954Bljoaquocyxe Ql (Bld)SlightSalem City HospitalAnisocytosis Ql (Bld)Anisocytosis [Presence] in Blood by Light microscopySalem City HospitalAspartate aminotransferase [Enzymatic activity/volume] in Serum or PlasmaOrdered By: Fabiola Marinelli on 61-70-5346ZON [Catalytic activity/Vol]22 U/V94-65ObxphzliuSalem City HospitalAST [Catalytic activity/Vol]Aspartate aminotransferase [Enzymatic activity/volume] in Serum or Bcmbeb40-23OzksadpbjSalem City Hospital Basophils Auto (Bld) [#/Vol]Ordered By: Fabiola Marinelli on 23-55-5492Liabyyiyo (Bld) [#/Vol]0.0 10*3/uL0.0-0.2FPremier HealthBasophils (Bld) [#/Vol]Automated basophil count0.0-0.2FPremier Health Basophils/100 WBC Auto (Bld)Ordered By: Fabiola Marinelli on 48-11-1049Tjnmugdqi/100 WBC (Bld)0.2 %.[facility] HospitalBasophils/100 WBC (Bld)Automated basophil %.[facility] HospitalBilirubin.total [Mass/volume] in Serum or PlasmaOrdered By: Fabiola Marinelli on 81-83-5508Drxdortpg [Mass/Vol]0.8 mg/dL 0.3-1.0[facility] HospitalBilirubin [Mass/Vol]Bilirubin.total [Mass/volume] in Serum or Plasma0.3-1.0[facility] HospitalCalcium [Mass/volume] in Serum or PlasmaOrdered By: Fabiola Marinelli on 63-72-3818Vokohku [Mass/Vol]8.5 mg/dL8.6-10.3FPremier HealthCarbon dioxide, total [Moles/volume] in Serum or PlasmaOrdered By: Fabiola Marinelli on 83-10-6676GH8 [Moles/Vol]26.4 mmol/L21.0-31.0[facility] HospitalCO2 [Moles/Vol] Carbon dioxide, total [Moles/volume] in Serum or Dytcbv37.0-31.0[facility] HospitalChloride [Moles/volume] in Serum or PlasmaOrdered By: Fabiola Marinelli on 83-54-6902Wkhkbrbp [Moles/Vol]108 mmol/YRxzm48-893HsjbqqigfSalem City HospitalChloride [Moles/Vol]Chloride [Moles/volume] in Serum or PlasmaHigh 98-107[facility] HospitalCreatinine [Mass/volume] in Serum or PlasmaOrdered By: Fabiola Marinelli on 15-59-3185Mbokulslom [Mass/Vol]0.52 mg/dL 0.60-1.20[facility] HospitalEosinophils Auto (Bld) [#/Vol]Ordered By: Fabiola Marinelli on 70-20-5646Lyrfehklnrv (Bld) [#/Vol]0.0 10*3/uL0.0-0.45[facility] HospitalEosinophils (Bld) [#/Vol]Automated eosinophil count 0.0-0.45[facility] HospitalEosinophils/100 WBC Auto (Bld)Ordered By: Fabiola Marinelli on 53-27-7050Moidkdlvcyo/100 WBC (Bld)1.6 %.[facility] HospitalEosinophils/100 WBC (Bld)Automated eosinophil %.[facility] HospitalErythrocyte distribution width Auto (RBC) [Ratio]Ordered By: Fabiola Marinelli on 00-03-2301Cqbalzqamcg distribution width (RBC) [Ratio]15.2 %11.9-15.3 [facility] HospitalErythrocyte distribution width (RBC) [Ratio] Erythrocyte distribution width [Ratio] by Automated count11.9-15.3FPremier HealthGlobulin Calc (S) [Mass/Vol]Ordered By: Fabiola Marinelli on 67-09-4884Huexibeu (S) [Mass/Vol]2.0 g/dLSalem City Hospital Globulin (S) [Mass/Vol]Serum globulin measurement by calculation (mass/volume) [facility] HospitalGlucose [Mass/volume] in Serum or PlasmaOrdered By: Fabiola Marinelli on 92-17-1125Oltlxiw [Mass/Vol]126 mg/lIIpai75-716PvdsglowySalem City HospitalComment on above:ADA recommended reference rangeRandom Glucose Reference Range is dependent on time and content of last meal. Glucose of more than 200 mg/dL in a nonstressed, ambulatory subject supports the diagnosisof Diabetes Mellitus.Glucose [Mass/Vol]Glucose [Mass/volume] in Serum or PjkyvkQbnv33-754OnkxamivpSalem City HospitalHematocrit Auto (Bld) [Volume fraction]Ordered By: Fabiola Marinelli on 57-18-4772Tvjswnguqr (Bld) [Volume fraction]30.0 %Low34.0-46.4FPremier HealthHematocrit (Bld) [Volume fraction]Hematocrit [Volume Fraction] of Blood by Automated countLow 34.0-46.4FPremier HealthHemoglobin [Mass/volume] in Blood Ordered By: Fabiola Marinelli on 66-03-1712Imdeqeqrmr (Bld) [Mass/Vol]10.1 g/dLLow 11.8-15.4FPremier HealthHemoglobin (Bld) [Mass/Vol]Hemoglobin [Mass/volume] in OcwmrMeo64.8-15.4FPremier HealthIgA [Mass/volume] in Serum or PlasmaOrdered By: Fabiola Marinelli on 73-10-3532BgX [Mass/Vol]mg/pBIpb48-155Vmxwy[address] [place], [place] [address]Comment on above:Result confirmed on concentration.IgA [Mass/Vol]IgA [Mass/volume] in Serum or Plasma Kgl66-758YqrpkqwcoSalem City HospitalIgG [Mass/volume] in Serum or Plasma Ordered By: Fabiola Marinelli on 50-69-8116ZlC [Mass/Vol]594 mg/nQ731-1081OqsdbiprlSalem City HospitalIgG [Mass/Vol]IgG [Mass/volume] in Serum or Plasma 586-1602Sal[facility] HospitalIgM [Mass/volume] in Serum or Plasma Ordered By: Fabiola Marinelli on 49-00-6618ItZ [Mass/Vol]10 mg/bASnt73-837FbgdgblytSalem City HospitalComment on above:Result confirmed on concentration.Performed at: [place] [place] [id number] Director: Lang Knight PhD, Phone: [phone] [Mass/Vol]IgM [Mass/volume] in Serum or IbzltgLfm29-416Wcrunhocf[address] [place] [address] Immunoglobulin light chains.kappa.free [Mass/volume] in SerumOrdered By: Fabiola Marinelli on 64-76-9968Atklrbnmbnzqct light chains.kappa.free (S) [Mass/Vol]<0.7 mg/LLow3.3-19.4FPremier HealthImmunoglobulin light chains.kappa.free (S) [Mass/Vol]Immunoglobulin light chains.kappa.free [Mass/volume] in SerumLow3.3-19.4FPremier HealthImmunoglobulin light chains.kappa.free/Immunoglobulin light chains.lambda.free [MassOrdered By: Fabiola Marinelli on 99-94-2912Jvmslwmltbplsf light chains.kappa.free/Immunoglobulin light chains.lambda.free (S) [Mass ratio]See comment.[facility] HospitalComment on above:Unable to calculate result since non-numeric resultobtained for component test.Performed at: [employer] [id number] Director: Lang Knight PhD, Phone: [phone] Immunoglobulin light chains.kappa.free/Immunoglobulin light chains.lambda.free (S) [Mass ratio]Immunoglobulin light chains.kappa.free/Immunoglobulin light chains.lambda.free [Mass.[facility] HospitalImmunoglobulin light chains.lambda.free [Mass/volume] in Serum or PlasmaOrdered By: Fabiola Marinelli on 18-64-2463Yemtdgoaitqeqm light chains.lambda.free [Mass/Vol]mg/LLow5.7-26.3 [facility] HospitalImmunoglobulin light chains.lambda.free [Mass/Vol]Immunoglobulin light chains.lambda.free [Mass/volume] in Serum or PlasmaLow5.7-26.3FPremier HealthLeukocytes [#/volume] corrected for nucleated erythrocytes in Blood by Automated counOrdered By: Fabiola Marinelli on 83-48-4502QST corrected for nucl RBC Auto (Bld) [#/Vol]1.7 10*3/uLLow 3.8-11.6FPremier HealthWBC corrected for nucl RBC Auto (Bld) [#/Vol]Leukocytes [#/volume] corrected for nucleated erythrocytes in Blood by Automated counLow3.8-11.6FPremier HealthLymphocytes Auto (Bld) [#/Vol]Ordered By: Fabiola Marinelli on 93-69-5329Yednhmajhsg (Bld) [#/Vol]0.4 10*3/uL Low1.00-4.8[facility] HospitalLymphocytes (Bld) [#/Vol]Lymphocytes [#/volume] in Blood by Automated countLow1.00-4.8[facility] HospitalLymphocytes/100 WBC Auto (Bld)Ordered By: Fabiola Marinelli on 09-29-2023 Lymphocytes/100 WBC (Bld)23.9 %.[facility] HospitalLymphocytes/100 WBC (Bld)Lymphocytes/100 leukocytes in Blood by Automated count.[facility] CenterH Auto (RBC) [Entitic mass]Ordered By: Fabiola Marinelli on 85-02-2620RQF (RBC) [Entitic mass]31.7 pg24.7-34.3FSumma Health Wadsworth - Rittman Medical CenterH (RBC) [Entitic mass]MCH [Entitic mass] by Automated count24.7-34.3 [facility] CenterHC Auto (RBC) [Mass/Vol]Ordered By: Fabiola Marinelli on 44-84-8836EPGG (RBC) [Mass/Vol]33.7 g/dL32.0-35.0[facility] CenterHC (RBC) [Mass/Vol]MCHC [Mass/volume] by Automated count32.0-35.0 [facility] CenterV Auto (RBC) [Entitic vol]Ordered By: Fabiola Marinelli on 26-74-1213DPK (RBC) [Entitic vol]94.2 zL77-409SaekuxqlySycamore Medical CenterV (RBC) [Entitic vol]MCV [Entitic volume] by Automated count 80-100[facility] HospitalMicrocytes LM Ql (Bld)Ordered By: Fabiola Marinelli on 53-74-5036Mzlhnqugxh Ql (Bld)SlightSalem City Hospital Microcytes Ql (Bld)Microcytes [Presence] in Blood by Light microscopySalem City HospitalMonocytes Auto (Bld) [#/Vol]Ordered By: Fabiola Marinelli on 24-34-7649Twmbcdzvl (Bld) [#/Vol]0.3 10*3/uL0.0-0.8[facility] HospitalMonocytes (Bld) [#/Vol]Automated blood monocyte count0.0-0.8[facility] HospitalMonocytes/100 WBC Auto (Bld)Ordered By: Fabiola Marinelli on 32-07-5917Wvwdnnsql/100 WBC (Bld)18.4 %.[facility] Monocytes/100 WBC (Bld)Automated monocyte %.[facility] Neutrophils Auto (Bld) [#/Vol]Ordered By: Fabiola Marinelli on 52-47-1654Litsnsljzkg (Bld) [#/Vol]1.0 10*3/uLLow1.8-7.7FPremier HealthNeutrophils (Bld) [#/Vol]Neutrophils [#/volume] in Blood by Automated countLow1.8-7.7 [facility] HospitalNeutrophils/100 WBC Auto (Bld)Ordered By: Fabiola Marinelli on 53-44-3327Uiikcxannxx/100 WBC (Bld)55.9 %.[facility] HospitalNeutrophils/100 WBC (Bld)Automated neutrophil %.[facility] HospitalNo Panel InformationOrdered By: Fabiola Marinelli on 09-80-9593Nsricqcmj GFR (CKD-EPI)> 60.0 mL/MinSalem City HospitalPharmacy Creatinine Clearance (Chem68.49[facility]> 60.0 mL/MinSalem City Hospital68.49[facility] HospitalNucleated erythrocytes [Presence] in Blood by Automated countOrdered By: Fabiola Marinelli on 56-59-8521Fswroqwcm RBC Auto Ql (Bld)0.1 /100{WBC}0-0.5FPremier HealthNucleated RBC Auto Ql (Bld)Nucleated erythrocytes [Presence] in Blood by Automated count0-0.5FPremier HealthOvalocyte detectionOrdered By: Fabiola Marinelli on 11-91-0020Upjmpavpcm LM Ql (Bld)Slight [facility] HospitalOvalocytes LM Ql (Bld)Ovalocyte detection [facility] HospitalPlatelet adequacy [Presence] in Blood by Light microscopyOrdered By: Fabiola Marinelli on 43-29-1826Lfnttxogw LM Ql (Bld)Decreased NormalSalem City HospitalPlatelets LM Ql (Bld)Platelet adequacy [Presence] in Blood by Light microscopyNormalSalem City Hospital Platelet mean volume Auto (Bld) [Entitic vol]Ordered By: Fabiola Marinelli on 09-29-2023 Platelet mean volume (Bld) [Entitic vol]8.3 fL6.3-10.7FPremier HealthPlatelet mean volume (Bld) [Entitic vol]Platelet mean volume [Entitic volume] in Blood by Automated count6.3-10.7FPremier Health Platelet morphology finding [Identifier] in BloodOrdered By: Fabiola Marinelli on 51-75-8248Ytjtlugm morphology finding Nom (Bld)N/AFPremier HealthPlatelet morphology finding Nom (Bld)Platelet morphology finding [Identifier] in BloodSalem City HospitalPlatebaystate wing hospital Auto (Bld) [#/Vol]Ordered By: Fabiola Marinelli on 27-16-0413Qylaewshs (Bld) [#/Vol]42 10*3/uLLow 150-450Sal[facility] City HospitalPlatelets (Bld) [#/Vol]Platelets [#/volume] in Blood by Automated pkbncWbh284-259LktdcjgphOhioHealth Nelsonville [facility] Center Large [Presence] in Blood by Light microscopyOrdered By: Fabiola Marinelli on 24-67-2179Jyljoclpl Large LM Ql (Bld)SlightSalem City HospitalPlatebaystate wing hospital Large LM Ql (Bld)Platelets Large [Presence] in Blood by Light microscopySalem City HospitalPoikilocytosis [Presence] in Blood by Light microscopyOrdered By: Fabiola Marinelli on 54-87-1065Dzixjynhmaerqz LM Ql (Bld) [facility] CenterPoikilocytosis LM Ql (Bld)Poikilocytosis [Presence] in Blood by Light microscopySalem City Hospital Polychromasia [Presence] in Blood by Light microscopyOrdered By: Fabiola Marinelli on 28-00-5731Uuyygwkqgndwa LM Ql (Bld)[facility] [facility] Polychromasia LM Ql (Bld)Polychromasia [Presence] in Blood by Light microscopy [facility] HospitalPotassium [Moles/volume] in Serum or Plasma Ordered By: Fabiola Marinelli on 49-53-8115Niubirkie [Moles/Vol]3.8 mmol/L3.5-5.1 [facility] HospitalPotassium [Moles/Vol]Potassium [Moles/volume] in Serum or Plasma3.5-5.1FPremier HealthProtein [Mass/volume] in Serum or PlasmaOrdered By: Fabiola Marinelli on 84-13-8622Ybpzyjj [Mass/Vol]5.4 g/dL Low6.4-8.9[facility] HospitalProtein [Mass/Vol]Protein [Mass/volume] in Serum or PlasmaLow6.4-8.9[facility] Auto (Bld) [#/Vol]Ordered By: Fabiola Marinelli on 84-43-6991VLF (Bld) [#/Vol]3.18 10*6/uLLow3.60-5.00[facility] (Bld) [#/Vol] Erythrocytes [#/volume] in Blood by Automated countLow3.60-5.00[facility] morphologyOrdered By: Fabiola Marinelli on 47-51-5131NZK morphology finding Nom (Bld)N/AFAvita Health System [facility] morphology finding Nom (Bld)RBC morphologyRiverview Health Institutechistocytes [Presence] in Blood by Light microscopyOrdered By: Fabiola Marinelli on 09-29-2023 Schistocytes LM Ql (Bld)SlightRiverview Health Institutechistocytes LM Ql (Bld)Schistocytes [Presence] in Blood by Light microscopyRiverview Health Instituteerum or plasma albumin/globulin mass ratioOrdered By: Fabiola Marinelli on 96-84-8724Oymiepe/Globulin [Mass ratio]1.7 {ratio}[facility] HospitalAlbumin/Globulin [Mass ratio]Serum or plasma albumin/globulin mass ratio Riverview Health Instituteerum or plasma anion gap determinationOrdered By: Fabiola Marinelli on 73-08-1801Whmci gap [Moles/Vol]9.4 mmol/L6.0-15.0[facility] HospitalAnion gap [Moles/Vol]Serum or plasma anion gap determination6.0-15.0Riverview Health Instituteodium [Moles/volume] in Serum or PlasmaOrdered By: Fabiola Marinelli on 36-69-8043Avgzcq [Moles/Vol]140 mmol/L 136-145Riverview Health Instituteodium [Moles/Vol]Sodium [Moles/volume] in Serum or Aspnsr122-131LpaweqbpgSalem City HospitalTeardrop cell detectionOrdered By: Fabiola Marinelli on 79-24-4468Revwkppsvl LM Ql (Bld)Slight [place] [facility] HospitalDacrocytes LM Ql (Bld)Teardrop cell detection [facility] HospitalUrea nitrogen [Mass/volume] in Serum or Plasma Ordered By: Fabiola Marinelli on 55-43-2298Isgu nitrogen [Mass/Vol]15 mg/dL7-25[facility] HospitalWBC Auto (Bld) [#/Vol]Ordered By: Fabiola Marinelli on 82-20-7450OAG (Bld) [#/Vol]1.7 10*3/uLLow3.8-11.6FPremier HealthWBC (Bld) [#/Vol]Leukocytes [#/volume] in Blood by Automated countLow 3.8-11.6FPremier HealthAnisocytosis LM Ql (Bld)Ordered By: Juan Rivera on 95-60-6765Ghqvpxxrftma Ql (Bld)SlightSalem City HospitalBasophils Auto (Bld) [#/Vol]Ordered By: Juan Rivera on 09-12-2023 Basophils (Bld) [#/Vol]0.0 10*3/uL0.0-0.2FPremier Health Basophils/100 WBC Auto (Bld)Ordered By: Juan Rivera on 98-55-7108Sjetcilwg/100 WBC (Bld)0.1 %.[facility] HospitalCOVID-19 Detected/Not Detected Ordered By: Juan Rivera on 80-72-6869QOFH-CoV-2 (COVID-19) RNA JOHANN+non-probe Ql (Nph)DetectedNot DetectPremier HealthComment on above: This is a duplicate RP2.1 COVID (PCR) result to be used for statistical tracking purpose only.Calcium [Mass/volume] in Serum or PlasmaOrdered By: Juan Rivera on 03-12-0165Myoiwvi [Mass/Vol]8.3 mg/dL8.6-10.3FPremier HealthCarbon dioxide, total [Moles/volume] in Serum or PlasmaOrdered By: Juna Rivera on 36-77-5172KT5 [Moles/Vol]26.1 mmol/L21.0-31.0[facility] HospitalChloride [Moles/volume] in Serum or PlasmaOrdered By: Juan Rivera on 60-04-8425Zrksabqe [Moles/Vol]107 mmol/Y21-875FtcyxdxmrSalem City HospitalCreatinine [Mass/volume] in Serum or PlasmaOrdered By: Juan Rivera on 34-62-2850Nakafwthlx [Mass/Vol]0.54 mg/dL0.60-1.20[facility] HospitalEosinophils Auto (Bld) [#/Vol]Ordered By: Juan Rivera on 27-55-3305Gkskwijfvdm (Bld) [#/Vol]0.0 10*3/uL0.0-0.45[facility] HospitalEosinophils/100 WBC Auto (Bld)Ordered By: Juan Rivera on 09-12-2023 Eosinophils/100 WBC (Bld)1.5 %.[facility] HospitalErythrocyte distribution width Auto (RBC) [Ratio]Ordered By: Juan Rivera on 09-12-2023 Erythrocyte distribution width (RBC) [Ratio]16.3 %11.9-15.3FPremier HealthGlucose [Mass/volume] in Serum or PlasmaOrdered By: Juan Rivera on 88-47-6701Osuenek [Mass/Vol]91 mg/bE25-119BuioyorhqSalem City Hospital Comment on above:ADA recommended reference rangeRandom Glucose Reference Range is dependent on time and content of last meal. Glucose of more than 200 mg/dL in a nonstressed, ambulatory subject supports the diagnosisof Diabetes Mellitus. Hematocrit Auto (Bld) [Volume fraction]Ordered By: Juan Rivera on 09-12-2023 Hematocrit (Bld) [Volume fraction]29.5 %34.0-46.4FPremier HealthHemoglobin [Mass/volume] in BloodOrdered By: Juan Rivera on 09-12-2023 Hemoglobin (Bld) [Mass/Vol]10.0 g/dL11.8-15.4FPremier Health Leukocytes [#/volume] corrected for nucleated erythrocytes in Blood by Automated counOrdered By: Juan Rivera on 64-56-5755HWU corrected for nucl RBC Auto (Bld) [#/Vol]2.2 10*3/uL3.8-11.6FPremier HealthLymphocytes Auto (Bld) [#/Vol]Ordered By: Juan Rivera on 94-33-1194Pvisbyzliqn (Bld) [#/Vol]0.2 10*3/uL1.00-4.8[facility] HospitalLymphocytes/100 WBC Auto (Bld)Ordered By: Juan Rivera on 95-64-7441Yzgecyxzkgk/100 WBC (Bld)9.5 %. [facility] CenterH Auto (RBC) [Entitic mass]Ordered By: Juan Rivera on 64-37-8649APX (RBC) [Entitic mass]32.6 pg24.7-34.3FPremier HealthMCHC Auto (RBC) [Mass/Vol]Ordered By: Juan Rivera on 09-12-2023 MCHC (RBC) [Mass/Vol]33.8 g/dL32.0-35.0[facility] HospitalMCV Auto (RBC) [Entitic vol]Ordered By: Juan Rivera on 66-16-2925FNS (RBC) [Entitic vol]96.4 wW53-998HmtsphjssSalem City HospitalMonocyte distribution width [Entitic volume] in Blood by AutomatedOrdered By: Juan Rivera on 09-12-2023 Monocyte distribution width Auto (Bld) [Entitic vol]20.93 %0.00-20.00[facility] City HospitalComment on above:For adults in ED, MDW > 20.0 may be associated with a higher risk of sepsis during the first 12 hrs of hospital admissionMonocytes Auto (Bld) [#/Vol]Ordered By: Juan Rivera on 09-12-2023 Monocytes (Bld) [#/Vol]0.3 10*3/uL0.0-0.8[facility] Monocytes/100 WBC Auto (Bld)Ordered By: Juan Rivera on 94-59-6760Frtgzykjd/100 WBC (Bld)13.8 %.[facility] HospitalNeutrophils Auto (Bld) [#/Vol] Ordered By: Juan Rivera on 03-82-2814Qhfokclxbbd (Bld) [#/Vol]1.6 10*3/uL 1.8-7.7FPremier HealthNeutrophils/100 WBC Auto (Bld)Ordered By: Juan Rivera on 01-20-2844Soltkjydppk/100 WBC (Bld)75.1 %.[facility] HospitalNo Panel InformationOrdered By: Juan Rivera on 09-57-7900Qvbayytyi GFR (CKD-EPI)> 60.0 mL/MinSalem City Hospital Pharmacy Creatinine Clearance (Chem66.46[facility]> 60.0 mL/MinSalem City Hospital66.46[facility] Nucleated erythrocytes [Presence] in Blood by Automated countOrdered By: Juan Rivera on 48-52-2612Ftlkhdjdq RBC Auto Ql (Bld)0.1 /100{WBC}0-0.5FPremier HealthPlatelet adequacy [Presence] in Blood by Light microscopy Ordered By: Juan Rivera on 82-88-3219Caopmrdjr LM Ql (Bld)DecreasedNormal [facility] City HospitalPlatelet mean volume Auto (Bld) [Entitic vol] Ordered By: Juan Rivera on 24-51-7445Cxfhwxep mean volume (Bld) [Entitic vol] 8.6 fL6.3-10.7FPremier HealthPlatelet morphology finding [Identifier] in BloodOrdered By: Juan Rivera on 14-06-1113Boeahuig morphology finding Nom (Bld)N/AFPremier HealthPlatelets Auto (Bld) [#/Vol]Ordered By: Juan Rivera on 98-93-4516Rycxnucrd (Bld) [#/Vol]36 10*3/uL 150-450Sal[facility] City HospitalComment on above:Critical valueresult calledat 0948 on 09/12/23Platelets Large [Presence] in Blood by Light microscopy Ordered By: Juan Rivera on 06-20-7840Eazclmota Large LM Ql (Bld)Slight [facility] HospitalPotassium [Moles/volume] in Serum or Plasma Ordered By: Juan Rivera on 23-62-7762Uupwnginu [Moles/Vol]3.5 mmol/L3.5-5.1 [facility] HospitalRBC Auto (Bld) [#/Vol]Ordered By: Juan Rivera on 13-31-3053FXQ (Bld) [#/Vol]3.06 10*6/uL3.60-5.00[facility] HospitalRB morphologyOrdered By: Juan Rivera on 82-29-1208TBS morphology finding Nom (Bld)N/AFPremier HealthRespiratory pathogens DNA and RNA panel - Nasopharynx by JOHANN with non-probe detectionOrdered By: Juan Rivera on 36-77-7011Ymylnepmtxb pathogens DNA and RNA panel JOHANN+non-probe (Nph)Riverview Health Instituteerum or plasma anion gap determination Ordered By: Juan Rivera on 76-97-2272Znuvq gap [Moles/Vol]10.4 mmol/L6.0-15.0 [facility] Health Instituteodium [Moles/volume] in Serum or PlasmaOrdered By: Juan Rivera on 36-29-3625Jyugtr [Moles/Vol]140 mmol/Z221-704DbfndcuhuSalem City HospitalTeardrop cell detectionOrdered By: Juan Rivera on 50-93-5374Eeiubzmnwa LM Ql (Bld)SlightSalem City HospitalTroponin I.cardiac [Mass/volume] in Serum or Plasma by Detection limit <= 0.01 ng/Ordered By: Juan Rivera on 12-81-7857Mxbuhlrs I.cardiac DL <= 0.01 ng/mL [Mass/Vol] 4.4 pg/mL0.0-15.0[facility] HospitalUrea nitrogen [Mass/volume] in Serum or PlasmaOrdered By: Juan Rivera on 72-61-5299Suig nitrogen [Mass/Vol] 17 mg/dL7-25Sal[facility] HospitalWBC Auto (Bld) [#/Vol]Ordered By: Juan Rivera on 74-40-0897WFR (Bld) [#/Vol]2.2 10*3/uL3.8-11.6FPremier HealthImmunoglobulin light chains.free panel (S)Ordered By: Nava Carr on 02-45-7562Xjiyoaonumunat light chains.kappa [Mass/Vol]mg/dLLow0.33 - 1.94 mg/dLUnCentervilleImmunoglobulin light chains.kappa/Immunoglobulin light chains.lambda (S) [Mass ratio][facility] PrebleComment on above:One or more analytes used in this calculation is outside of the analytical measurement range. Calculation cannot be performed. Immunoglobulin light chains.lambda [Mass/Vol]mg/dLLow0.57 - 2.63 mg/dLUnCentervilleInterpretation and review of laboratory resultsAbnormal [facility] PrebleUndetected antigen excess is a rare event but cannot be excluded. If these free light chain results do not agree with other clinical or laboratory findings, or if the sample is from a patient that has previously demonstrated antigen excess, the result must be checked by retesting at a higher sample dilution. Results should always be interpreted in conjunction with other laboratory tests and clinical evidence; any anomalies should be discussed with the testing laboratory.[facility] PrebleUnCentervilleComprehensive metabolic 2000 panelon 58-08-1948Ebkgrat BCP dye [Mass/Vol]3.5 g/dL3.4 - 5.0 g/dLUnCentervilleALP [Catalytic activity/Vol]126 U/L33 - 136 U/[facility] CenterT With P-5'-P [Catalytic activity/Vol]18 U/L7 - 45 U/[facility] on above:Patients treated with Sulfasalazine may generate falsely decreased results for ALT.Anion gap [Moles/Vol]11 mmol/L10 - 20 mmol/L [facility] PrebleAST With P-5'-P [Catalytic activity/Vol]22 U/L9 - 39 U/[facility] HospitalBilirubin [Mass/Vol]1.0 mg/dL0.0 - 1.2 mg/dLUnCentervilleCalcium [Mass/Vol]8.8 mg/dL8.6 - 10.3 mg/dLUnCentervilleChloride [Moles/Vol]107 mmol/L98 - 107 mmol/[facility] HospitalCO2 [Moles/Vol]27 mmol/L21 - 32 mmol/L [facility] PrebleCreatinine [Mass/Vol]0.48 mg/dLLow0.50 - 1.05 mg/dLUnCentervilleGFR/1.73 sq M.predicted MDRD (S/P/Bld) [Vol rate/Area]- PINFUniWVUMedicine Harrison Community Hospital on above: Calculations of estimated GFR are performed using the 2020 CKD-EPI Study Refit equation without therace variable for the IDMS-Traceable creatinine methods. https://jasn.asnjournals.org/content//ASN.5383003578 Glucose [Mass/Vol]105 mg/iCDbmg68 - 99 mg/dLUnCenterville Interpretation and review of laboratory resultsAbnoAvita Health SystemPotassium [Moles/Vol]3.8 mmol/L3.5 - 5.3 mmol/[facility] HospitalProtein [Mass/Vol]5.0 g/dLLow6.4 - 8.2 g/dLUnCentervilleSodium [Moles/Vol]141 mmol/L136 - 145 mmol/[facility] HospitalUrea nitrogen [Mass/Vol]13 mg/dL6 - 23 mg/dLKettering Health PrebleUnCentervilleImmunoglobulins (IgG, IgA, IgM)Ordered By: Ligia Hi on 48-02-2061KiH [Mass/Vol]mg/dLLow70 - 400 mg/dLUnCentervilleIgG [Mass/Vol]338 mg/eGXha761 - 1600 mg/dLKettering Health PrebleIgM [Mass/Vol]6 mg/dLLow40 - 230 mg/dLUnCentervilleInterpretation and review of laboratory resultsAbUniversity Hospitals Geauga Medical CenterMONOCLONAL PROTEINS MAY CAUSE FALSELY LOW RESULTS IN THIS ASSAY. SERUM PROTEIN ELECTROPHORESIS SHOULD BE DONE THE FIRST TEST TO EVALUATE MONOCLONAL GAMMOPATHY.[facility] CenterCB W Auto Differential panel (Bld)on 30-52-3888Ckshcitkbht distribution width (RBC) [Ratio]15.5 %High11.5 - 14.5 % [facility] PrebleHematocrit (Bld) [Volume fraction]26.7 %Low36.0 - 46.0 %[facility] PrebleHemoglobin (Bld) [Mass/Vol]8.8 g/dLLow 12.0 - 16.0 g/dLKettering Health PrebleImhannibal regional hospital granulocytes (Bld) [#/Vol]0.01 10*3/uLUnTrumbull Memorial Hospital granulocytes/100 WBC (Bld)0.7 %0.0 - 0.9 %[facility] on above: Immature Granulocyte Count (IG) includes promyelocytes, myelocytes and metamyelocytes but does not include bands. Percent differential counts (%) should be interpreted in the context of the absolute cell counts (cells/UL). Interpretation and review of laboratory resultsAbnormalUniProtestant Deaconess HospitalH (RBC) [Entitic mass]32.2 pg26.0 - 34.0 pgUnAvita Health System Bucyrus HospitalHC (RBC) [Mass/Vol]33.0 g/dL32.0 - 36.0 g/dLAdena Fayette Medical CenterV (RBC) [Entitic vol]98 fL80 - 100 [facility] HamiltonNucleated RBC/100 WBC (Bld) [Ratio]0.0 %[facility] mean volume (Bld) [Entitic vol]11.4 fL7.5 - 11.5 [facility] HamiltonPlatebaystate wing hospital (Bld) [#/Vol]22 10*3/uLCritically lowKettering Health PrebleRB (Bld) [#/Vol]2.73 10*6/uLLowKettering Health PrebleWBC (Bld) [#/Vol]1.5 10*3/uLWestern Reserve HospitalThe previously reported component Neutrophils % is no longer being reported.The previously reportedcomponent Lymphocytes % is no longer being reported.The previously reported component Monocytes % is no longer being reported.The previously reported component Eosinophils % is no longer being reported.The previously reported component Basophils % is no longer being reported.The previously reported component Absolute Neutrophils is no longer being reported.The previously reported component Absolute Lymphocytes is no longer being reported.The previously reported component Absolute Monocytes is no longer being reported.The previously reported component Absolute Eosinophils is no longer being reported.The previously reported component Absolute Basophils is no longer being reported.[facility] PrebleUnGreene Memorial Hospital-reactive proteinon 89-29-1097DRY [Mass/Vol]6.43 mg/dLHighNINF - 1.00 mg/dLKettering Health PrebleCB W Auto Differential panel (Bld)on 15-99-4171Fmkkavfsa (Bld) [#/Vol]0.00 10*3/uL [facility] PrebleBasophils/100 WBC (Bld)0.0 %0.0 - 2.0 % [facility] PrebleEosinophils (Bld) [#/Vol]0.16 10*3/[facility] HospitalEosinophils/100 WBC (Bld)11.1 %0.0 - 6.0 %[facility] PrebleErythrocyte distribution width (RBC) [Ratio]15.5 %High11.5 - 14.5 %[facility] PrebleHematocrit (Bld) [Volume fraction]25.7 %Low36.0 - 46.0 %[facility] PrebleHemoglobin (Bld) [Mass/Vol]8.1 g/dLLow12.0 - 16.0 g/dLKettering Health PrebleImmaadams county regional medical center granulocytes (Bld) [#/Vol]0.01 10*3/[facility] HospitalImhannibal regional hospital granulocytes/100 WBC (Bld)0.7 %0.0 - 0.9 %[facility] Interpretation and review of laboratory resultsAbnormalUniMount St. Mary HospitalLymphocytes (Bld) [#/Vol]0.08 10*3/[facility] HospitalLymphocytes/100 WBC (Bld)5.6 %13.0 - 44.0 %[facility] PrebleMCH (RBC) [Entitic mass]31.3 pg26.0 - 34.0 pgKettering Health PrebleMCHC (RBC) [Mass/Vol]31.5 g/dLLow32.0 - 36.0 g/dLAdena Fayette Medical CenterV (RBC) [Entitic vol]99 fL80 - [address] Mary HospitalMonocytes (Bld) [#/Vol]0.19 10*3/[facility] Monocytes/100 WBC (Bld)13.2 %2.0 - 10.0 %[facility] Neutrophils (Bld) [#/Vol]1.00 10*3/[facility] Neutrophils/100 WBC (Bld)69.4 %40.0 - 80.0 %[facility] Nucleated RBC/100 WBC (Bld) [Ratio]0.0 %[facility] Platelet mean volume (Bld) [Entitic vol]12.9 fLHigh7.5 - 11.[address] HospitalPlatelets (Bld) [#/Vol]18 10*3/uLCritically lowUnCentervilleRBC (Bld) [#/Vol]2.59 10*6/uLLowUnCentervilleWBC (Bld) [#/Vol]1.4 10*3/uLLowKettering Health PrebleCRP [Mass/Vol]on 50-01-4050Pfbafaienfdnbc and review of laboratory resultsAbnormal [facility] PrebleComprehensive metabolic 2000 panelon 08-13-2023 Albumin BCP dye [Mass/Vol]2.8 g/dLLow3.4 - 5.0 g/dLUnCentervilleAL [Catalytic activity/Vol]72 U/L33 - 136 U/[facility] HospitalALT With P-5'-P [Catalytic activity/Vol]16 U/L7 - 45 U/[facility] HospitalAnion gap [Moles/Vol]9 mmol/LLow10 - 20 mmol/[facility] HospitalAST With P-5'-P [Catalytic activity/Vol]16 U/L9 - 39 U/L [facility] PrebleBilirubin [Mass/Vol]1.4 mg/dLHigh0.0 - 1.2 mg/dLUnCentervilleCalcium [Mass/Vol]8.4 mg/dLLow8.6 - 10.6 mg/dLUnCentervilleChloride [Moles/Vol]106 mmol/L98 - 107 mmol/[facility] HospitalCO2 [Moles/Vol]27 mmol/L21 - 32 mmol/L [facility] PrebleCreatinine [Mass/Vol]0.53 mg/dL0.50 - 1.05 mg/dLUnCentervilleGFR/1.73 sq M.predicted MDRD (S/P/Bld) [Vol rate/Area]- PINFUniMount St. Mary HospitalGlucose [Mass/Vol]134 mg/xVDpub73 - 99 mg/dLUnCentervilleInterpretation and review of laboratory resultsAbnoAvita Health SystemPotassium [Moles/Vol]3.6 mmol/L3.5 - 5.3 mmol/[facility] HospitalProtein [Mass/Vol]4.3 g/dLLow6.4 - 8.2 g/dLUnCentervilleSodium [Moles/Vol]138 mmol/L136 - 145 mmol/[facility] HospitalUrea nitrogen [Mass/Vol]12 mg/dL6 - 23 mg/dLKettering Health PrebleFerritin on 47-88-8196Axbsphdu [Mass/Vol]101 ng/mL8 - 150 ng/mLUnCentervilleFerritin [Mass/Vol]on 61-43-8320Wswujtxobplblt and review of laboratory resultsNoAvita Health SystemFibrinogenon 96-05-2711Kcbakzcjzf Coag (PPP) [Mass/Vol]230 mg/dL200 - 400 mg/dLUnCenterville Fibrinogen Coag (PPP) [Mass/Vol]on 91-56-7381Jemnjqzecrgpvk and review of laboratory resultsNoAvita Health SystemUnCentervilleGlucose Test strip manual (Bld) [Mass/Vol]on 48-77-2481Uwpjkqi [Mass/Vol]161 mg/qLBpwz11 - 99 mg/dLKettering Health Preble Interpretation and review of laboratory resultsAbSelect Medical Cleveland Clinic Rehabilitation Hospital, Edwin ShawGlucose [Mass/Vol]104 mg/iHXrzi41 - 99 mg/dLUnCentervilleInterpretation and review of laboratory resultsAbnoOhioHealth Dublin Methodist HospitalLD Lactate to pyruvate reaction [Catalytic activity/Vol]on 08-13-2023 Interpretation and review of laboratory resultsNoOhioHealth Dublin Methodist HospitalLactate dehydrogenaseon 09-83-4075UYC Lactate to pyruvate reaction [Catalytic activity/Vol]179 U/L84 - 246 U/L [facility] PrebleMagnesiumon 23-65-6475Gqlgixwfb [Mass/Vol]1.72 mg/dL1.60 - 2.40 mg/dLUnCentervilleNo Panel Informationon 06-30-5247MbrooeajbaCentervilleUnCenterville Interpretation and review of laboratory resultsNormAvita Health System Bucyrus HospitalPhosphoruson 20-77-0273Hoafhypgm [Mass/Vol]3.9 mg/dL2.5 - 4.9 mg/dLUnSumma Health Wadsworth - Rittman [facility] Center shape Nom (Bld)on 73-41-9865Ynfruxmtcx LM Ql (Bld)FewUnSumma Health Wadsworth - Rittman Medical Center morphology finding Nom (Bld)See BelowKettering Health PrebleUric Acid on 93-12-4777Ihopz [Mass/Vol]2.8 mg/dL2.3 - 6.7 mg/dLKettering Health PrebleBacteria identified Cx Nom (Bld)on 30-71-9392Xzgjsnxxaraouj and review of laboratory resultsNormAvita Health System Bucyrus HospitalC-reactive proteinon 84-67-5263GWG [Mass/Vol]7.01 mg/dLHighNINF - 1.00 mg/dLUnCentervilleCB W Auto Differential panel (Bld)on 63-78-5962Phhvjofjsvy distribution width (RBC) [Ratio]15.6 %High11.5 - 14.5 % [facility] PrebleHematocrit (Bld) [Volume fraction]24.8 %Low36.0 - 46.0 %[facility] PrebleHemoglobin (Bld) [Mass/Vol]8.0 g/dLLow 12.0 - 16.0 g/dLUnCentervilleImhannibal regional hospital granulocytes (Bld) [#/Vol]0.02 10*3/uLUnTrumbull Memorial Hospital granulocytes/100 WBC (Bld)2.3 %High0.0 - 0.9 %[facility]ayette Medical CenterH (RBC) [Entitic mass]31.6 pg26.0 - 34.0 pgUnAvita Health System Bucyrus HospitalHC (RBC) [Mass/Vol]32.3 g/dL32.0 - 36.0 g/dLAdena Fayette Medical CenterV (RBC) [Entitic vol]98 fL80 - [address] Mary HospitalNucleated RBC/100 WBC (Bld) [Ratio]0.0 %[facility] PreblePlatelet mean volume (Bld) [Entitic vol]11.9 fLHigh7.5 - 11.5 [facility] Platelets (Bld) [#/Vol]13 10*3/uLCritically [facility] RBC (Bld) [#/Vol]2.53 10*6/uLLowKettering Health PrebleWBC (Bld) [#/Vol]0.9 10*3/uLCritically lowKettering Health PrebleUnCentervilleCRP [Mass/Vol]on 45-79-2120Xyrbcotkkaiqup and review of laboratory resultsAbnormalUMercy Health St. Joseph Warren HospitalComprehensive metabolic 2000 panelon 82-66-0574Dbflptv BCP dye [Mass/Vol]2.7 g/dLLow3.4 - 5.0 g/dLUnCentervilleALP [Catalytic activity/Vol]68 U/L33 - 136 U/[facility] HospitalALT With P-5'-P [Catalytic activity/Vol]19 U/L7 - 45 U/[facility] HospitalAnion gap [Moles/Vol]11 mmol/L10 - 20 mmol/[facility] HospitalAST With P-5'-P [Catalytic activity/Vol]14 U/L9 - 39 U/[facility] HospitalBilirubin [Mass/Vol]1.4 mg/dLHigh0.0 - 1.2 mg/dLKettering Health PrebleCalcium [Mass/Vol]7.8 mg/dLLow8.6 - 10.6 mg/dLKettering Health PrebleChloride [Moles/Vol]108 mmol/LHigh98 - 107 mmol/[facility] HospitalCO2 [Moles/Vol]26 mmol/L21 - 32 mmol/[facility] HospitalCreatinine [Mass/Vol]0.70 mg/dL0.50 - 1.05 mg/dLKettering Health PrebleGFR/1.73 sq M.predicted MDRD (S/P/Bld) [Vol rate/Area]- PINFUMercy Health St. Joseph Warren HospitalGlucose [Mass/Vol]145 mg/vCBgwn91 - 99 mg/dLUnCentervillePotassium [Moles/Vol]3.6 mmol/L3.5 - 5.3 mmol/[facility] HospitalProtein [Mass/Vol]4.3 g/dLLow6.4 - 8.2 g/dLUnCentervilleSodium [Moles/Vol]141 mmol/L136 - 145 mmol/[facility] HospitalUrea nitrogen [Mass/Vol]15 mg/dL6 - 23 mg/dLUnCentervilleFerritinon 13-34-4027Nuimimix [Mass/Vol]98 ng/mL8 - 150 ng/mLUnCentervilleFerritin [Mass/Vol]on 92-83-4798Mwldnudpemjitj and review of laboratory resultsNormThe MetroHealth SystemFibrinogenon 98-30-3070Yknhohxpcl Coag (PPP) [Mass/Vol]224 mg/dL200 - 400 mg/dLUnCentervilleFimissouri rehabilitation center Coag (PPP) [Mass/Vol]on 08-12-2023 Interpretation and review of laboratory resultsNormAvita Health System Bucyrus HospitalGlucose Test strip manual (Bld) [Mass/Vol]on 16-48-5760Rqhbunb [Mass/Vol]89 mg/dL74 - 99 mg/dLUnCentervilleInterpretation and review of laboratory resultsNormal [facility] HospitalLD Lactate to pyruvate reaction [Catalytic activity/Vol]on 98-84-3045Phypqtkqcvnmpi and review of laboratory resultsNoOhioHealth Dublin Methodist HospitalLaboratory - Microbiology and Antimicrobial susceptibility on 75-54-6306Zmyvxuhc identified Cx Nom (Bld)No growth at 4 days - FINAL REPORT [facility] PrebleLactate dehydrogenaseon 76-99-3665HYJ Lactate to pyruvate reaction [Catalytic activity/Vol]159 U/L84 - 246 U/[facility] HospitalMagnesiumon 01-34-9177Rimpfcfnr [Mass/Vol]1.80 mg/dL1.60 - 2.40 mg/dLUnCentervilleManual differential performed Ql (Bld)on 55-62-0168Rnugesktb (Bld) [#/Vol]0.00 10*3/[facility] HospitalBasophils/100 WBC (Bld)0.0 %0.0 - 2.0 %[facility] PrebleCells Counted Total (Bld) [#]116 {cells}[facility] PrebleEosinophils (Bld) [#/Vol]0.12 10*3/[facility] Eosinophils/100 WBC (Bld)12.9 %0.0 - 6.0 %[facility] Lymphocytes (Bld) [#/Vol]0.07 10*3/[facility] Lymphocytes/100 WBC (Bld)7.8 %13.0 - 44.0 %[facility] Monocytes (Bld) [#/Vol]0.05 10*3/[facility] Monocytes/100 WBC (Bld)6.0 %2.0 - 10.0 %[facility] Ovalocytes LM Ql (Bld)[facility] Pre[facility] morphology finding Nom (Bld)See BelowKettering Health PrebleSegmented neutrophils (Bld) [#/Vol]0.66 10*3/[facility] HospitalSeented neutrophils/100 WBC (Bld)73.3 %40.0 - 80.0 %[facility]bleNo Panel Informationon [id number] and review of laboratory resultsAbnormWayne HospitalUnCentervilleUnCentervilleInterpretation and review of laboratory resultsAbnormWayne HospitalInterpretation and review of laboratory results NormalUnCentervilleUnCenterville Phosphoruson [id number] [Mass/Vol]3.3 mg/dL2.5 - 4.9 mg/dLUnCentervilleUric Acidon 66-15-4445Hddih [Mass/Vol]2.2 mg/dLLow2.3 - 6.7 mg/dLUnCentervilleC-reactive proteinon 24-54-1999JOL [Mass/Vol]4.57 mg/dLHighNINF - 1.00 mg/dLKettering Health PrebleCB W Auto Differential panel (Bld)on 14-90-9684Jfokoeyeq (Bld) [#/Vol]0.00 10*3/uL [facility]bleBasophils/100 WBC (Bld)0.0 %0.0 - 2.0 % [facility]bleEosinophils (Bld) [#/Vol]0.08 10*3/uLUnCentervilleEosinophils/100 WBC (Bld)7.5 %0.0 - 6.0 %[facility] PrebleErythrocyte distribution width (RBC) [Ratio]15.2 %High11.5 - 14.5 %[facility]bleHematocrit (Bld) [Volume fraction]26.1 %Low36.0 - 46.0 %[facility]bleHemoglobin (Bld) [Mass/Vol]8.3 g/dLLow12.0 - 16.0 g/dLKettering Health PrebleImmaadams county regional [facility] center granulocytes (Bld) [#/Vol]0.01 10*3/uLKettering Health PrebleImhannibal regional hospital granulocytes/100 WBC (Bld)0.9 %0.0 - 0.9 %[facility] Interpretation and review of laboratory resultsAbnormalUniMount St. Mary HospitalLymphocytes (Bld) [#/Vol]0.07 10*3/uLLowKettering Health PrebleLymphocytes/100 WBC (Bld)6.6 %13.0 - 44.0 %[facility] CenterH (RBC) [Entitic mass]32.7 pg26.0 - 34.0 pgUnAvita Health System Bucyrus HospitalHC (RBC) [Mass/Vol]31.8 g/dLLow32.0 - 36.0 g/dLAdena Fayette Medical CenterV (RBC) [Entitic vol]103 yKIjem23 - [address] HospitalMonocytes (Bld) [#/Vol]0.16 10*3/[facility] Monocytes/100 WBC (Bld)15.1 %2.0 - 10.0 %[facility] Neutrophils (Bld) [#/Vol]0.74 10*3/uLWestern Reserve Hospital Neutrophils/100 WBC (Bld)69.9 %40.0 - 80.0 %[facility] Nucleated RBC/100 WBC (Bld) [Ratio]0.0 %[facility] Platelet mean volume (Bld) [Entitic vol]11.3 fL7.5 - 11.[address] HospitalPlatelets (Bld) [#/Vol]17 10*3/uLCritically lowUnCentervilleRBC (Bld) [#/Vol]2.54 10*6/uLWestern Reserve HospitalWBC (Bld) [#/Vol]1.1 10*3/[facility] HospitalCR [Mass/Vol]on 04-30-7694Tqvhjcvopwtnch and review of laboratory resultsAbnormalUniMount St. Mary HospitalComprehensive metabolic 2000 panelon 06-68-1830Mrezgue BCP dye [Mass/Vol]2.8 g/dLLow3.4 - 5.0 g/dLUnCentervilleAL [Catalytic activity/Vol]70 U/L33 - 136 U/[facility]ALT With P-5'-P [Catalytic activity/Vol]21 U/L7 - 45 U/[facility] HospitalAnion gap [Moles/Vol]13 mmol/L10 - 20 mmol/[facility] HospitalAST With P-5'-P [Catalytic activity/Vol]18 U/L9 - 39 U/[facility] HospitalBilirubin [Mass/Vol]1.8 mg/dLHigh0.0 - 1.2 mg/dLUnCentervilleCalcium [Mass/Vol]8.1 mg/dLLow8.6 - 10.6 mg/dLUnCentervilleChloride [Moles/Vol]106 mmol/L98 - 107 mmol/[facility] HospitalCO2 [Moles/Vol]23 mmol/L21 - 32 mmol/[facility] HospitalCreatinine [Mass/Vol]0.58 mg/dL0.50 - 1.05 mg/dLUnCentervilleGFR/1.73 sq M.predicted MDRD (S/P/Bld) [Vol rate/Area]- PINFUniMount St. Mary HospitalGlucose [Mass/Vol]135 mg/bKUuon32 - 99 mg/dLUnCentervillePotassium [Moles/Vol]3.6 mmol/L3.5 - 5.3 mmol/[facility] HospitalProtein [Mass/Vol]4.3 g/dLLow6.4 - 8.2 g/dLUnCentervilleSodium [Moles/Vol]138 mmol/L136 - 145 mmol/[facility] HospitalUrea nitrogen [Mass/Vol]17 mg/dL6 - 23 mg/dLUnCentervilleFerritinon 56-73-9972Yltofgcz [Mass/Vol] 100 ng/mL8 - 150 ng/mLUnCentervilleFerritin [Mass/Vol]on 71-88-6957Vdqgahrxemwaxa and review of laboratory resultsNoAvita Health SystemFibrinogen 33-88-6948Ykythywfrf Coag (PPP) [Mass/Vol]240 mg/dL200 - 400 mg/dLUnCentervilleFimissouri rehabilitation center Coag (PPP) [Mass/Vol]on 04-17-6650Rqncyyatdespqa and review of laboratory resultsNoOhioHealth Grady Memorial HospitalGlucose Test strip manual (Bld) [Mass/Vol]on 09-48-2199Ymidpcp [Mass/Vol]131 mg/lROusj50 - 99 mg/dLUnCentervilleInterpretation and review of laboratory resultsAbnoOhioHealth Dublin Methodist HospitalGlucose [Mass/Vol]90 mg/dL74 - 99 mg/dLUnCentervilleInterpretation and review of laboratory resultsNoOhioHealth Dublin Methodist HospitalLD Lactate to pyruvate reaction [Catalytic activity/Vol]on 70-85-3184Qmgwfsbynkkkud and review of laboratory resultsNoOhioHealth Dublin Methodist HospitalLactate dehydrogenaseon 68-27-9369NKV Lactate to pyruvate reaction [Catalytic activity/Vol]175 U/L84 - 246 U/[facility] Magnesiumon 23-33-4009Qipmdsdfi [Mass/Vol]1.47 mg/dLLow1.60 - 2.40 mg/dL [facility]bleNo Panel Informationon 80-70-7946YqakgzttveCentervilleUnCentervilleInterpretation and review of laboratory resultsAbnoAvita Health SystemUnCentervillePhosphate [Mass/Vol]on 49-33-9625Dzndtilkakyhlx and review of laboratory resultsNormalUMercy Health St. Joseph Warren HospitalPhosphoruson 04-75-0994Ekvnvrimf [Mass/Vol]3.4 mg/dL2.5 - 4.9 mg/dLUnSumma Health W[facility] shape Nom (Bld)on 06-15-2194Gdztiieons LM Ql (Bld)FewUnSumma Health Wadsworth - Rittman Medical Center morphology finding Nom (Bld)See BelowUnCentervilleUric Acidon 27-18-9776Cxdcn [Mass/Vol]2.1 mg/dLLow2.3 - 6.7 mg/dLUnCentervilleUrinalysis complete panel (U)on 50-83-8529Aorvwtstsa (U)ClearClearUnCentervilleBilirubin (U) [Mass/Vol]NegativeNEGATIVEUnCentervilleColor (U)StrawStraw, YellowUnCentervilleGlucose Auto test strip (U) [Mass/Vol] NegativeNEGATIVE mg/dLUnCentervilleInterpretation and review of laboratory resultsAbnoAvita Health SystemKetones (U) [Mass/Vol]NegativeNEGATIVE mg/dLUnCentervilleLeukocyte esterase Auto test strip Ql (U)NegativeNEGATIVEUnCenterville Nitrite Auto test strip Ql (U)NegativeNEGATIVEUnCenterville pH (U)6.0 [pH]5.0, 5.5, 6.0, 6.5, 7.0, 7.5, 8.0UnCent[place] Protein (U) [Mass/Vol]NegativeNEGATIVE mg/dLUnCentervilleRB (U) [#/Vol]NegativeNEGATIVEUnCentervilleSpecific gravity (U) [Rel density]1.683Rxleexko7.005 - 1.035UnCenterville Urobilinogen (U) [Mass/Vol]mg/dLNINF - 2.0 mg/dLUnCentervilleUnGreene Memorial Hospital-reactive proteinon 89-36-2741XFI [Mass/Vol]8.19 mg/dLHighNINF - 1.00 mg/dLKettering Health PrebleCB W Auto Differential panel (Bld)on 34-41-0467Xpnrstxmjgk distribution width (RBC) [Ratio]15.0 %High11.5 - 14.5 %[facility]bleHematocrit (Bld) [Volume fraction]28.3 %Low36.0 - 46.0 %[facility] Hemoglobin (Bld) [Mass/Vol]9.2 g/dLLow12.0 - 16.0 g/dLKettering Health PrebleImhannibal regional hospital granulocytes (Bld) [#/Vol]0.01 10*3/uLUnTrumbull Memorial Hospital granulocytes/100 WBC (Bld)1.2 %High0.0 - 0.9 %[facility] CenterH (RBC) [Entitic mass]33.1 pg26.0 - 34.0 pgUnAvita Health System Bucyrus HospitalHC (RBC) [Mass/Vol]32.5 g/dL32.0 - 36.0 g/dLAdena Fayette Medical CenterV (RBC) [Entitic vol]102 uHLmol39 - 100 [facility] CenterniMount [address] Mary HospitalNucleated RBC/100 WBC (Bld) [Ratio]0.0 %[facility]blePlatelet mean volume (Bld) [Entitic vol]12.8 fLHigh7.5 - 11.[address] HospitalPlatelets (Bld) [#/Vol]22 10*3/uL Critically lowUnCentervilleRB (Bld) [#/Vol]2.78 10*6/uLLow [facility]bleWBC (Bld) [#/Vol]0.8 10*3/uLCritically low [facility] PrebleUnCentervilleCRP [Mass/Vol] on 51-08-2452Slnmglqongyoog and review of laboratory resultsAbnormalUniversity Hospitals of ClevelandComprehensive metabolic 2000 panelon 84-49-8640Srzudkl BCP dye [Mass/Vol]3.3 g/dLLow3.4 - 5.0 g/dLUnCentervilleALP [Catalytic activity/Vol]83 U/L33 - 136 U/[facility]ALT With P-5'-P [Catalytic activity/Vol]28 U/L7 - 45 U/[facility] HospitalAnion gap [Moles/Vol]10 mmol/L10 - 20 mmol/[facility] HospitalAST With P-5'-P [Catalytic activity/Vol]21 U/L9 - 39 U/[facility] HospitalBilirubin [Mass/Vol]1.2 mg/dL0.0 - 1.2 mg/dLUnCentervilleCalcium [Mass/Vol]8.4 mg/dLLow8.6 - 10.6 mg/dLUnCentervilleChloride [Moles/Vol]107 mmol/L98 - 107 mmol/[facility] HospitalCO2 [Moles/Vol]25 mmol/L21 - 32 mmol/[facility] HospitalCreatinine [Mass/Vol]0.54 mg/dL0.50 - 1.05 mg/dLUnCentervilleGFR/1.73 sq M.predicted MDRD (S/P/Bld) [Vol rate/Area]- [facility] HospitalGlucose [Mass/Vol]295 mg/eSZymy25 - 99 mg/dLUnCentervillePotassium [Moles/Vol]4.1 mmol/L3.5 - 5.3 mmol/[facility] HospitalProtein [Mass/Vol]5.0 g/dLLow6.4 - 8.2 g/dLUnCentervilleSodium [Moles/Vol]138 mmol/L136 - 145 mmol/[facility] HospitalUrea nitrogen [Mass/Vol]16 mg/dL6 - 23 mg/dLUnCentervilleFerritinon 47-64-7260Hjmpaimj [Mass/Vol] 107 ng/mL8 - 150 ng/mLUnCentervilleFerritin [Mass/Vol]on 09-82-8570Mdxtgprlmsjyim and review of laboratory resultsNoAvita Health SystemFibrinogenon 23-52-0678Tdawvmrkpy Coag (PPP) [Mass/Vol]266 mg/dL200 - 400 mg/dLKettering Health PrebleFimissouri rehabilitation center Coag (PPP) [Mass/Vol]on 00-62-7601Cilgkpjmrkvwhc and review of laboratory resultsNoOhioHealth Grady Memorial HospitalGlucose Test strip manual (Bld) [Mass/Vol]on 93-74-8978Kuqktdn [Mass/Vol]126 mg/dMQclt94 - 99 mg/dLKettering Health PrebleInterpretation and review of laboratory resultsAbSelect Medical [facility] Clinic Rehabilitation Hospital, Edwin ShawGlucose [Mass/Vol]159 mg/wZEuyz39 - 99 mg/dLUnCentervilleInterpretation and review of laboratory resultsAbSelect Medical [facility] Hospital, Edwin ShawLD Lactate to pyruvate reaction [Catalytic activity/Vol]on 20-46-5372Fuwayoguugyrvq and review of laboratory resultsNoOhioHealth Dublin Methodist HospitalLactate dehydrogenaseon 76-91-4453FCF Lactate to pyruvate reaction [Catalytic activity/Vol]189 U/L84 - 246 U/LUnCenterville Magnesiumon 90-09-9964Oztmmppuj [Mass/Vol]1.94 mg/dL1.60 - 2.40 mg/dLKettering Health PrebleMagnesium [Mass/Vol]on 72-64-7029Qhhcjzuxqgzemr and review of laboratory resultsNoAvita Health SystemManual differential performed Ql (Bld)on 68-05-0007Howaqiwko (Bld) [#/Vol]0.00 10*3/[facility] HospitalBasophils/100 WBC (Bld)0.0 %0.0 - 2.0 %[facility]bleCells Counted Total (Bld) [#]115 {cells}[facility]bleEosinophils (Bld) [#/Vol]0.02 10*3/uLKettering Health PrebleEosinophils/100 WBC (Bld)2.6 %0.0 - 6.0 %[facility]bleLymphocytes (Bld) [#/Vol]0.04 10*3/[facility] HospitalLymphocytes/100 WBC (Bld)4.4 %13.0 - 44.0 %[facility]bleMonocytes (Bld) [#/Vol]0.03 10*3/[facility] Monocytes/100 WBC (Bld)4.3 %2.0 - 10.0 %[facility] Ovalocytes LM Ql (Bld)[facility]bleRB morphology finding Nom (Bld)See BelowUnCentervilleSegmented neutrophils (Bld) [#/Vol]0.71 10*3/[facility] HospitalSemedical behavioral hospital neutrophils/100 WBC (Bld)88.7 %40.0 - 80.0 %[facility]bleNo Panel Informationon 08-24-8162Iswsvsspuuxbmt and review of laboratory resultsAbnormal [facility] HospitalInterpretation and review of laboratory resultsAbnormalUniMercy Health St. Charles HospitalUnCentervillePhosphoruson 89-77-0401Ixuewvufs [Mass/Vol]2.4 mg/dLLow2.5 - 4.9 mg/dLUnCentervilleUric Acidon 25-93-9300Uezya [Mass/Vol]1.9 mg/dLLow2.3 - 6.7 mg/dL [facility]-reactive proteinon 91-40-0991VWQ [Mass/Vol] 7.39 mg/dLHighNINF - 1.00 mg/dLUnCentervilleCB W Auto Differential panel (Bld)on 14-55-8976Cakchjawjme distribution width (RBC) [Ratio]15.7 %High11.5 - 14.5 %[facility]bleHematocrit (Bld) [Volume fraction]27.3 %Low36.0 - 46.0 %[facility] Hemoglobin (Bld) [Mass/Vol]8.7 g/dLLow12.0 - 16.0 g/dLUnCentervilleImmature granulocytes (Bld) [#/Vol]0.01 10*3/uLUnCentervilleImhannibal regional hospital granulocytes/100 WBC (Bld)1.2 %High0.0 - 0.9 %[facility]bleMCH (RBC) [Entitic mass]32.3 pg26.0 - 34.0 pgUnCentervilleMCHC (RBC) [Mass/Vol]31.9 g/dLLow32.0 - 36.0 g/dL [facility]bleMCV (RBC) [Entitic vol]102 vIBjpz66 - 100 fL [facility] PrebleNucleated RBC/100 WBC (Bld) [Ratio]0.0 % [facility] mean volume (Bld) [Entitic vol]12.1 fL High7.5 - 11.5 fLUniversMichiana Behavioral Health CenterPlatelets (Bld) [#/Vol]22 10*3/uLCritically lowKettering Health PrebleRBC (Bld) [#/Vol]2.69 10*6/uLLowUnCentervilleWBC (Bld) [#/Vol]0.9 10*3/uL Critically lowUnCentervilleUnCenterville CRP [Mass/Vol]on 78-55-3323Jjedtmlvmeqgvv and review of laboratory results AbnormalKettering Health PrebleComprehensive metabolic 2000 panelon 40-13-8650Xhxjdfz BCP dye [Mass/Vol]2.9 g/dLLow3.4 - 5.0 g/dLUnCentervilleALP [Catalytic activity/Vol]73 U/L33 - 136 U/[facility] HospitalALT With P-5'-P [Catalytic activity/Vol]27 U/L7 - 45 U/L [facility]bleAnion gap [Moles/Vol]12 mmol/L10 - 20 mmol/L [facility]bleAST With P-5'-P [Catalytic activity/Vol]31 U/L9 - 39 U/[facility] HospitalBilirubin [Mass/Vol]1.7 mg/dLHigh0.0 - 1.2 mg/dLK[facility]tering Health PrebleCalcium [Mass/Vol]7.7 mg/dLLow8.6 - 10.6 mg/dLUnCentervilleChloride [Moles/Vol]108 mmol/LHigh98 - 107 mmol/[facility] HospitalCO2 [Moles/Vol]26 mmol/L21 - 32 mmol/[facility] HospitalCreatinine [Mass/Vol]0.59 mg/dL0.50 - 1.05 mg/dLUnCentervilleGFR/1.73 sq M.predicted MDRD (S/P/Bld) [Vol rate/Area]- PINFUniMount St. Mary HospitalGlucose [Mass/Vol]99 mg/dL74 - 99 mg/dLUnCentervilleInterpretation and review of laboratory resultsAbUniversity Hospitals Geaug[facility] Medical Center Potassium [Moles/Vol]3.7 mmol/L3.5 - 5.3 mmol/[facility] Protein [Mass/Vol]4.3 g/dLLow6.4 - 8.2 g/dLUnCent[place] Sodium [Moles/Vol]142 mmol/L136 - 145 mmol/[facility] Urea nitrogen [Mass/Vol]15 mg/dL6 - 23 mg/dLThe University of Toledo Medical CenterFerritinon 30-54-1760Lbmjhcpt [Mass/Vol]107 ng/mL8 - 150 ng/mLUnCentervilleFerritin [Mass/Vol]on 22-65-4319Snyflkawhesvqm and review of laboratory resultsNoAvita Health SystemFibrinospringwoods behavioral health hospitalOrdered By: rEna Hicks on 08-09-2023 Fibrinogen Coag (PPP) [Mass/Vol]252 mg/dL200 - 400 mg/dLUnCentervilleFimissouri rehabilitation center Coag (PPP) [Mass/Vol]Ordered By: Erna Hicks on 74-87-0147Fipdkkcurhgsxl and review of laboratory resultsNoAvita Health SystemUnCentervilleGlucose Test strip manual (Bld) [Mass/Vol]on 00-13-6532Fmplyba [Mass/Vol]218 mg/vDMkfd72 - 99 mg/dL [facility] PrebleInterpretation and review of laboratory results AbnormalUnPomerene Hospital Glucose [Mass/Vol]72 mg/dLLow74 - 99 mg/dLUnCenterville Interpretation and review of laboratory resultsAbnoOhioHealth Dublin Methodist HospitalGlucose [Mass/Vol]72 mg/dLLow74 - 99 mg/dLUnCentervilleInterpretation and review of laboratory resultsAbSelect Medical [facility] Clinic Rehabilitation Hospital, Edwin ShawLD Lactate to pyruvate reaction [Catalytic activity/Vol]on 08-09-2023 Interpretation and review of laboratory resultsNoOhioHealth Dublin Methodist HospitalLactate dehydrogenaseon 09-82-2633UAI Lactate to pyruvate reaction [Catalytic activity/Vol]187 U/L84 - 246 U/L [facility] PrebleMagnesiumon 09-01-2512Wmpzonmjj [Mass/Vol]2.25 mg/dL1.60 - 2.40 mg/dLUnCentervilleMagnesium [Mass/Vol]on 44-66-9217Sfvmxlpbdlzhcz and review of laboratory resultsNoOhioHealth Dublin Methodist HospitalManual differential performed Ql (Bld)on 28-62-2878Ddvb form neutrophils (Bld) [#/Vol]0.05 10*3/uL [facility]bleBand form neutrophils/100 WBC (Bld)5.1 %0.0 - 5.0 %[facility] PrebleBasophils (Bld) [#/Vol]0.01 10*3/uL [facility]bleBasophils/100 WBC (Bld)0.9 %0.0 - 2.0 % [facility] PrebleCells Counted Total (Bld) [#]117 {cells} [facility]bleEosinophils (Bld) [#/Vol]0.11 10*3/[facility] HospitalEosinophils/100 WBC (Bld)12.0 %0.0 - 6.0 %[facility] PrebleLymphocytes (Bld) [#/Vol]0.04 10*3/[facility] HospitalLymphocytes/100 WBC (Bld)4.3 %13.0 - 44.0 %[facility]bleMonocytes (Bld) [#/Vol]0.03 10*3/[facility] HospitalMonocytes/100 WBC (Bld)3.4 %2.0 - 10.0 %[facility] PrebleNeutrophils (Bld) [#/Vol]0.70 10*3/[facility] HospitalOvalocytes LM Ql (Bld)[facility]bleRB morphology finding Nom (Bld)See BelowUnCentervilleSegmented neutrophils (Bld) [#/Vol]0.65 10*3/[facility] Segmented neutrophils/100 WBC (Bld)72.6 %40.0 - 80.0 %[facility]bleVarselect medical specialty hospital [facility] lymphocytes (Bld) [#/Vol]0.02 10*3/[facility] HospitalVarselect medical specialty hospital [facility] [place] lymphocytes/100 WBC (Bld)1.7 %0.0 - 2.0 %[facility]bleNo Panel Informationon 44-25-6674Vkhcaiueubjxph and review of laboratory resultsAbnoAvita Health SystemUnCentervilleUnCentervillePhosphate [Mass/Vol]on 08-09-2023 Interpretation and review of laboratory resultsNoOhioHealth Dublin Methodist HospitalPhosphoruson 40-02-5793Bifmxyhup [Mass/Vol]3.6 mg/dL2.5 - 4.9 mg/dLUnGreene Memorial Hospital-reactive proteinon 23-22-5511PVR [Mass/Vol]1.49 mg/dLHighNINF - 1.00 mg/dLUnCentervilleCB W Auto Differential panel (Bld)on 08-08-2023 Erythrocyte distribution width (RBC) [Ratio]15.1 %High11.5 - 14.5 %[facility] PrebleHematocrit (Bld) [Volume fraction]26.3 %Low36.0 - 46.0 % [facility]bleHemoglobin (Bld) [Mass/Vol]8.5 g/dLLow12.0 - 16.0 g/dLUnCentervilleImmature granulocytes (Bld) [#/Vol] 0.02 10*3/uLUnCentervilleImmature granulocytes/100 WBC (Bld) 1.9 %High0.0 - 0.9 %[facility] CenterH (RBC) [Entitic mass] 31.8 pg26.0 - 34.0 pgUnCentervilleMCHC (RBC) [Mass/Vol]32.3 g/dL32.0 - 36.0 g/dLUnCentervilleMCV (RBC) [Entitic vol]99 fL80 - [address] HospitalNucleated RBC/100 WBC (Bld) [Ratio]0.0 %[facility] mean volume (Bld) [Entitic vol]12.2 fLHigh7.5 - 11.5 [facility] [address]erniMount [address] Mary HospitalPlatelets (Bld) [#/Vol]19 10*3/uLCritically lowKettering Health PrebleRBC (Bld) [#/Vol]2.67 10*6/uLLowKettering Health PrebleWBC (Bld) [#/Vol]1.1 10*3/uLWestern Reserve HospitalUnCentervilleCRP [Mass/Vol]on 04-12-4861Gpvblyuimsibmq and review of laboratory resultsAbnormal [facility]bleComprehensive metabolic 2000 panelon 08-08-2023 Albumin BCP dye [Mass/Vol]3.0 g/dLLow3.4 - 5.0 g/dLUnCentervilleALP [Catalytic activity/Vol]70 U/L33 - 136 U/[facility]ALT With P-5'-P [Catalytic activity/Vol]29 U/L7 - 45 U/[facility] HospitalAnion gap [Moles/Vol]13 mmol/L10 - 20 mmol/[facility] HospitalAST With P-5'-P [Catalytic activity/Vol]31 U/L9 - 39 U/L [facility] PrebleBilirubin [Mass/Vol]1.1 mg/dL0.0 - 1.2 mg/dL [facility] PrebleCalcium [Mass/Vol]7.4 mg/dLLow8.6 - 10.6 mg/dL [facility] PrebleChloride [Moles/Vol]106 mmol/L98 - 107 mmol/L [facility]bleCO2 [Moles/Vol]22 mmol/L21 - 32 mmol/L [facility] PrebleCreatinine [Mass/Vol]0.44 mg/dLLow0.50 - 1.05 mg/dLUnCentervilleGFR/1.73 sq M.predicted MDRD (S/P/Bld) [Vol rate/Area]- PINFUniMount St. Mary HospitalGlucose [Mass/Vol]112 mg/nOAkuz76 - 99 mg/dLUnCentervilleInterpretation and review of laboratory resultsAbnoAvita Health SystemPotassium [Moles/Vol]3.5 mmol/L3.5 - 5.3 mmol/[facility] HospitalProtein [Mass/Vol]4.5 g/dLLow6.4 - 8.2 g/dLUnCentervilleSodium [Moles/Vol]137 mmol/L136 - 145 mmol/[facility] HospitalUrea nitrogen [Mass/Vol]14 mg/dL6 - 23 mg/dLUnCleveland Clinic Medina HospitalFerritinon 37-69-7669Pwuabufy [Mass/Vol]85 ng/mL8 - 150 ng/mLUnCentervilleFerritin [Mass/Vol]on 33-00-1569Iqhfkeatmcgpub and review of laboratory resultsNoAvita Health SystemFibrinogenon 07-02-3377Cibdtscuiv Coag (PPP) [Mass/Vol]214 mg/dL200 - 400 mg/dLUnCentervilleFimissouri rehabilitation center Coag (PPP) [Mass/Vol]on 69-85-9999Fvocpmlvnmeqta and review of laboratory resultsNormal [facility] PrebleUnCentervilleGlucose Test strip manual (Bld) [Mass/Vol]on 45-43-3189Uaynupr [Mass/Vol]139 mg/aUQxor61 - 99 mg/dLUnCentervilleInterpretation and review of laboratory resultsAbUniversity Hospitals Geauga Medical CenterUnCentervilleGlucose [Mass/Vol]97 mg/dL74 - 99 mg/dLUnCentervilleInterpretation and review of laboratory resultsNoOhioHealth Dublin Methodist HospitalGlucose [Mass/Vol]99 mg/dL74 - 99 mg/dLKettering Health PrebleInterpretation and review of laboratory resultsNoOhioHealth Dublin Methodist HospitalLD Lactate to pyruvate reaction [Catalytic activity/Vol]on 08-08-2023 Interpretation and review of laboratory resultsNoOhioHealth Dublin Methodist HospitalLactateon 38-60-4468Ocfizwp [Moles/Vol]1.1 mmol/L0.4 - 2.0 mmol/[facility] HospitalLamiate [Moles/Vol]on 13-47-3397Icvxupobmbzkmt and review of laboratory resultsNoal [facility] Medical CenterLamiate dehydrogenaseon 12-73-0656EDH Lactate to pyruvate reaction [Catalytic activity/Vol]210 U/L84 - 246 U/[facility] HospitalMagnesiumon 54-25-4997Uulsbleut [Mass/Vol]1.36 mg/dLLow1.60 - 2.40 mg/dLUnCentervilleMagnesium [Mass/Vol]on 08-08-2023 Interpretation and review of laboratory resultsAbSelect Medical [facility] Clinic Rehabilitation Hospital, Edwin ShawManual differential performed Ql (Bld) on 15-71-4743Egnd form neutrophils (Bld) [#/Vol]0.19 10*3/[facility] HospitalBand form neutrophils/100 WBC (Bld)16.9 %0.0 - 5.0 %[facility]bleBasophils (Bld) [#/Vol]0.00 10*3/[facility] HospitalBasophils/100 WBC (Bld)0.0 %0.0 - 2.0 %[facility] PrebleCells Counted Total (Bld) [#]83 {cells}[facility]bleEosinophils (Bld) [#/Vol]0.04 10*3/[facility] Eosinophils/100 WBC (Bld)3.6 %0.0 - 6.0 %[facility] Lymphocytes (Bld) [#/Vol]0.07 10*3/[facility] Lymphocytes/100 WBC (Bld)6.0 %13.0 - 44.0 %[facility] Monocytes (Bld) [#/Vol]0.11 10*3/[facility] Monocytes/100 WBC (Bld)9.6 %2.0 - 10.0 %[facility] Neutrophils (Bld) [#/Vol]0.89 10*3/uLWestern Reserve Hospital Ovalocytes LM Ql (Bld)FewUnSumma Health Wadsworth - Rittman Medical Center morphology finding Nom (Bld)See BelowUnCentervilleSemedical behavioral hospital neutrophils (Bld) [#/Vol]0.70 10*3/[facility] HospitalSemedical behavioral hospital neutrophils/100 WBC (Bld)63.9 %40.0 - 80.0 %[facility]bleNo Panel Informationon 94-13-2385BzngbnaybwKettering Health PrebleInterpretation and review of laboratory resultsAbnoAtrium Health Steele CreekniMount St. Mary HospitalUnCentervilleUrinalysis complete W Reflex Culture panel (U)on 12-41-5722Eedlpuspjh (U)ClearClearUnCentervilleBilirubin (U) [Mass/Vol]NegativeNEGATIVEUnCentervilleColor (U)Yellow Straw, YellowUnCentervilleGlucose Auto test strip (U) [Mass/Vol]NegativeNEGATIVE mg/dLUnCentervilleInterpretation and review of laboratory resultsAbnoAvita Health SystemKetones (U) [Mass/Vol]NegativeNEGATIVE mg/dLUnCentervilleLeukocyte esterase Auto test strip Ql (U)NegativeNEGATIVEKettering Health Preble Nitrite Auto test strip Ql (U)NegativeNEGATIVEKettering Health [facility]ble pH (U)7.0 [pH]5.0, 5.5, 6.0, 6.5, 7.0, 7.5, 8.0[facility] Protein (U) [Mass/Vol]NegativeNEGATIVE mg/dLKettering Health PrebleRBC (U) [#/Vol]NegativeNEGATIVEUnCentervilleSpecific gravity (U) [Rel density]1.0081.005 - 1.035UnCentervilleUrobilinogen (U) [Mass/Vol]4.0 mg/dLAbnormalNINF - 2.0 mg/dLUnCleveland Clinic Medina HospitalXR Chest Single viewon 38-66-8275XE MMODALUH MMODALUnCenterville Work Phone: Radiology Study observation (narrative)[facility] Work Phone: xr Chest Single viewOrdered By: José Ramos on [id number] Work Phone: [phone]-pfbyrwar proteinon [id number] [Mass/Vol]2.53 mg/dLHighNINF - 1.00 mg/dLUnCentervilleCB W Auto Differential panel (Bld)on [id number] distribution width (RBC) [Ratio]15.1 %High11.5 - 14.5 %[facility]bleHematocrit (Bld) [Volume fraction]29.8 %Low36.0 - 46.0 %[facility] Hemoglobin (Bld) [Mass/Vol]9.6 g/dLLow12.0 - 16.0 g/dLUnCentervilleImhannibal regional hospital granulocytes (Bld) [#/Vol]0.01 10*3/uLUnCentervilleImhannibal regional hospital granulocytes/100 WBC (Bld)0.9 %0.0 - 0.9 %[facility] CenterH (RBC) [Entitic mass]31.8 pg26.0 - 34.0 pgUnAvita Health System Bucyrus HospitalHC (RBC) [Mass/Vol]32.2 g/dL32.0 - 36.0 g/dLAdena Fayette Medical CenterV (RBC) [Entitic vol]99 fL80 - 100 fLUniversMichiana Behavioral Health CenterNucleated RBC/100 WBC (Bld) [Ratio]0.0 %[facility]blePlatelet mean volume (Bld) [Entitic vol]10.0 fL7.5 - 11.[address] HospitalPlatelets (Bld) [#/Vol]22 10*3/uLCritically lowKettering Health PrebleRB (Bld) [#/Vol]3.02 10*6/uLWestern Reserve HospitalWBC (Bld) [#/Vol]1.1 10*3/uLGeorgetown Behavioral HospitalFerritinon [id number] [Mass/Vol]94 ng/mL8 - 150 ng/mLKettering Health PrebleFiinogenon 08-07-2023 Fibrinogen Coag (PPP) [Mass/Vol]250 mg/dL200 - 400 mg/dLKettering Health PrebleFicarondelet healthgen Coag (PPP) [Mass/Vol]on 08-49-2622Spxvxmbvzkpfyq and review of laboratory resultsNoOhioHealth Dublin Methodist HospitalGlucose Test strip manual (Bld) [Mass/Vol]on 00-24-2723Wnykxzg [Mass/Vol]114 mg/fHTcas41 - 99 mg/dLKettering Health Preble Interpretation and review of laboratory resultsAbSelect Medical Cleveland Clinic Rehabilitation Hospital, Edwin ShawGlucose [Mass/Vol]73 mg/dLLow74 - 99 mg/dLKettering Health PrebleInterpretation and review of laboratory resultsAbSelect Medical Cleveland Clinic Rehabilitation Hospital, Edwin ShawGlucose [Mass/Vol]233 mg/qJVxll94 - 99 mg/dLKettering Health PrebleInterpretation and review of laboratory resultsAbSelect Medical Cleveland Clinic Rehabilitation Hospital, Edwin ShawGlucose [Mass/Vol]130 mg/zBUnbm20 - 99 mg/dLKettering Health PrebleInterpretation and review of laboratory resultsAbSelect Medical Cleveland Clinic Rehabilitation Hospital, Edwin ShawLactate dehydrogenaseon 34-86-4670RPH Lactate to pyruvate reaction [Catalytic activity/Vol]214 U/L84 - 246 U/LUnCentervilleMagnesiumon 13-18-2647Rhqyptfep [Mass/Vol]1.88 mg/dL1.60 - 2.40 mg/dL [facility] PrebleManual differential performed Ql (Bld)on 48-54-6069Zzkplycrv (Bld) [#/Vol]0.00 10*3/[facility] Basophils/100 WBC (Bld)0.0 %0.0 - 2.0 %[facility] PrebleCells Counted Total (Bld) [#]115 {cells}[facility]bleEosinophils (Bld) [#/Vol]0.02 10*3/[facility] HospitalEosinophils/100 WBC (Bld)1.8 %0.0 - 6.0 %[facility] PrebleLymphocytes (Bld) [#/Vol] 0.06 10*3/[facility] HospitalLymphocytes/100 WBC (Bld)5.2 % 13.0 - 44.0 %[facility]bleMonocytes (Bld) [#/Vol]0.03 10*3/[facility] HospitalMonocytes/100 WBC (Bld)2.6 %2.0 - 10.0 %[facility] PrebleOvalocytes LM Ql (Bld)[facility]bleRB morphology finding Nom (Bld)See BelowKettering Health PrebleSegmented neutrophils (Bld) [#/Vol]0.99 10*3/[facility] Health AdministrationSegmented neutrophils/100 WBC (Bld)90.4 %40.0 - 80.0 %[facility]bleNo Panel Informationon 08-07-2023 Interpretation and review of laboratory resultsNormalUMercy Health St. Joseph Warren HospitalInterpretation and review of laboratory resultsAbnormKnox Community HospitalniPike Community HospitalInterpretation and review of laboratory resultsAbnoOhioHealth Dublin Methodist HospitalRenal function 2000 panelon 42-06-4816Puelfvi BCP dye [Mass/Vol]3.4 g/dL3.4 - 5.0 g/dLKettering Health PrebleAnion gap [Moles/Vol]12 mmol/L10 - 20 mmol/[facility] HospitalCalcium [Mass/Vol]8.2 mg/dLLow8.6 - 10.6 mg/dLUnCentervilleChloride [Moles/Vol]109 mmol/LHigh98 - 107 mmol/[facility] HospitalCO2 [Moles/Vol]24 mmol/L21 - 32 mmol/[facility] HospitalCreatinine [Mass/Vol]0.27 mg/dLLow0.50 - 1.05 mg/dLUnCenterville GFR/1.73 sq M.predicted MDRD (S/P/Bld) [Vol rate/Area]- PINJ.W. Ruby Memorial HospitalGlucose [Mass/Vol]132 mg/uPMhlo22 - 99 mg/dLUnCentervillePhosphate [Mass/Vol]2.3 mg/dLLow2.5 - 4.9 mg/dLUnCentervillePotassium [Moles/Vol]3.8 mmol/L3.5 - 5.3 mmol/[facility] HospitalSodium [Moles/Vol]141 mmol/L136 - 145 mmol/[facility] HospitalUrea nitrogen [Mass/Vol]15 mg/dL6 - 23 mg/dLUnGreene Memorial Hospital-reactive proteinon 95-89-1459SBD [Mass/Vol]0.85 mg/dLNINF - 1.00 mg/dLUnCentervilleCB W Auto Differential panel (Bld)on 01-85-9921Lxugovpnyjk distribution width (RBC) [Ratio]15.5 %High11.5 - 14.5 % [facility]bleHematocrit (Bld) [Volume fraction]27.4 %Low36.0 - 46.0 %[facility] PrebleHemoglobin (Bld) [Mass/Vol]9.4 g/dLLow 12.0 - 16.0 g/dLUnCentervilleImhannibal regional hospital granulocytes (Bld) [#/Vol]0.02 10*3/uLUnCentervilleImhannibal regional hospital granulocytes/100 WBC (Bld)1.5 %High0.0 - 0.9 %[facility] (RBC) [Entitic mass]33.7 pg26.0 - 34.0 pgUniversity Hospitals of ClevelandMCHC (RBC) [Mass/Vol]34.3 g/dL32.0 - 36.0 g/dLUnCentervilleMCV (RBC) [Entitic vol]98 fL80 - 100 [facility] HamiltonNucleated RBC/100 WBC (Bld) [Ratio]0.0 %[facility] PreblePlatelet mean volume (Bld) [Entitic vol]9.9 fL7.5 - 11.[address] HospitalPlatelets (Bld) [#/Vol]23 10*3/uLCritically lowUnCentervilleRBC (Bld) [#/Vol]2.79 10*6/[facility] HospitalWBC (Bld) [#/Vol]1.3 10*3/[facility] North HospitalUnCenterville Ferritinon 45-25-7846Nyzuebls [Mass/Vol]78 ng/mL8 - 150 ng/mLUnCentervilleFibrinogen 78-14-2776Twwgrjatcw Coag (PPP) [Mass/Vol]216 mg/dL200 - 400 mg/dLKettering Health PrebleFibrinogen Coag (PPP) [Mass/Vol]on 17-24-3188Lmxpksobhubryx and review of laboratory resultsNoOhioHealth Grady Memorial HospitalGlucose Test strip manual (Bld) [Mass/Vol]on 97-75-0327Kupvkfj [Mass/Vol]121 mg/vLEkfu63 - 99 mg/dLUnCentervilleInterpretation and review of laboratory resultsAbnormalUTrumbull Regional Medical CenterGlucose [Mass/Vol]129 mg/nGVtoq15 - 99 mg/dLUnCentervilleInterpretation and review of laboratory resultsAbnoOhioHealth Dublin Methodist HospitalGlucose [Mass/Vol]81 mg/dL74 - 99 mg/dLUnCentervilleInterpretation and review of laboratory resultsNormalUTrumbull Regional Medical CenterGlucose [Mass/Vol]89 mg/dL74 - 99 mg/dLUnCentervilleInterpretation and review of laboratory resultsNoOhioHealth Dublin Methodist HospitalLactate dehydrogenaseon 20-89-5075CRW Lactate to pyruvate reaction [Catalytic activity/Vol]197 U/L84 - 246 U/LUnCentervilleMagnesiumon 26-86-0798Wjaahaglw [Mass/Vol]1.57 mg/dLLow1.60 - 2.40 mg/dLKettering Health PrebleManual differential performed Ql (Bld)on 26-68-7153Vfvzoifyg (Bld) [#/Vol]0.00 10*3/[facility] CenterBasophils/100 WBC (Bld)0.0 %0.0 - 2.0 % [facility]bleCells Counted Total (Bld) [#]114 {cells} [facility]bleEosinophils (Bld) [#/Vol]0.00 10*3/[facility] HospitalEosinophils/100 WBC (Bld)0.0 %0.0 - 6.0 %[facility] PrebleLymphocytes (Bld) [#/Vol]0.08 10*3/[facility] HospitalLymphocytes/100 WBC (Bld)6.2 %13.0 - 44.0 %[facility]bleMonocytes (Bld) [#/Vol]0.03 10*3/[facility] HospitalMonocytes/100 WBC (Bld)2.6 %2.0 - 10.0 %[facility]bleRB morphology finding Nom (Bld)No significant RBC morphology present [facility] PrebleSegmented neutrophils (Bld) [#/Vol]1.19 10*3/[facility] InstituteSegmented neutrophils/100 WBC (Bld)91.2 % 40.0 - 80.0 %[facility]No Panel Informationon 08-06-2023 Interpretation and review of laboratory resultsAbnoOhioHealth Dublin Methodist HospitalInterpretation and review of laboratory resultsAbnoAvita Health SystemInterpretation and review of laboratory resultsNoOhioHealth Dublin Methodist HospitalRenal function 2000 panelon 18-53-5566Zukeuhi BCP dye [Mass/Vol]3.4 g/dL3.4 - 5.0 g/dLUnCentervilleAnion gap [Moles/Vol]12 mmol/L10 - 20 mmol/[facility] HospitalCalcium [Mass/Vol]8.3 mg/dLLow8.6 - 10.6 mg/dLUnCentervilleChloride [Moles/Vol]106 mmol/L98 - 107 mmol/[facility] HospitalCO2 [Moles/Vol]26 mmol/L21 - 32 mmol/[facility] HospitalCreatinine [Mass/Vol]0.42 mg/dLLow0.50 - 1.05 mg/dLUnCenterville GFR/1.73 sq M.predicted MDRD (S/P/Bld) [Vol rate/Area]- [facility] HospitalGlucose [Mass/Vol]103 mg/uSZxsp64 - 99 mg/dLUnCentervillePhosphate [Mass/Vol]3.2 mg/dL2.5 - 4.9 mg/dLUnCentervillePotassium [Moles/Vol]3.4 mmol/LLow3.5 - 5.3 mmol/[facility] HospitalSodium [Moles/Vol]141 mmol/L136 - 145 mmol/[facility] HospitalUrea nitrogen [Mass/Vol]19 mg/dL6 - 23 mg/dLUnCentervilleCBC W Auto Differential panel (Bld)on 72-32-3708Qkulbwfss (Bld) [#/Vol] 0.00 10*3/uLUnCentervilleBasophils/100 WBC (Bld)0.0 %0.0 - 2.0 %[facility]bleEosinophils (Bld) [#/Vol]0.00 10*3/uL [facility]bleEosinophils/100 WBC (Bld)0.0 %0.0 - 6.0 % [facility] PrebleErythrocyte distribution width (RBC) [Ratio] 15.0 %High11.5 - 14.5 %[facility] PrebleHematocrit (Bld) [Volume fraction]32.4 %Low36.0 - 46.0 %[facility] PrebleHemoglobin (Bld) [Mass/Vol]10.4 g/dLLow12.0 - 16.0 g/dLUnCenterville Immature granulocytes (Bld) [#/Vol]0.02 10*3/[facility] Immature granulocytes/100 WBC (Bld)1.2 %High0.0 - 0.9 %[facility] PrebleInterpretation and review of laboratory resultsAbnormalUniMount St. Mary HospitalLymphocytes (Bld) [#/Vol]0.36 10*3/[facility] HospitalLymphocytes/100 WBC (Bld)21.2 %13.0 - 44.0 %[facility] CenterH (RBC) [Entitic mass]32.4 pg26.0 - 34.0 pgUnCentervilleMCHC (RBC) [Mass/Vol]32.1 g/dL32.0 - 36.0 g/dLKettering Health PrebleMCV (RBC) [Entitic vol]101 bLBosi86 - 100 [facility] HamiltonMonocytes (Bld) [#/Vol]0.08 10*3/[facility] HospitalMonocytes/100 WBC (Bld)4.7 %2.0 - 10.0 %[facility] PrebleNeutrophils (Bld) [#/Vol]1.24 10*3/[facility] Neutrophils/100 WBC (Bld)72.9 %40.0 - 80.0 %[facility] Nucleated RBC/100 WBC (Bld) [Ratio]0.0 %[facility] Platelet mean volume (Bld) [Entitic vol]10.6 fL7.5 - 11.5 [facility] HamiltonPlatelets (Bld) [#/Vol]29 10*3/uLCritically lowKettering Health PrebleRBC (Bld) [#/Vol]3.21 10*6/[facility] HospitalWBC (Bld) [#/Vol]1.7 10*3/[facility] HospitalGlucose Test strip manual (Bld) [Mass/Vol]on 20-57-1585Auxtrkr [Mass/Vol]77 mg/dL74 - 99 mg/dL [facility] PrebleInterpretation and review of laboratory results NormalProMedica Flower HospitalGlucose [Mass/Vol]112 mg/yESimm63 - 99 mg/dLUnCenterville Interpretation and review of laboratory resultsAbnoOhioHealth Dublin Methodist HospitalGlucose [Mass/Vol]124 mg/xYLzdu70 - 99 mg/dLUnCentervilleInterpretation and review of laboratory resultsAbUniversity Hospitals Geauga Medical CenterUnCentervilleMR isol Org specific cx Ql (Nose)Ordered By: Yvan Ring on 71-68-5631Zgdfmhmpkofgga and review of laboratory resultsNoAvita Health SystemSte.j. noble hospitalococcus sp identified Org specific cx Nom (Unsp spec)No Staphylococcus aureus isolatedThe University of Toledo Medical CenterMR isol Org specific cx Ql (Nose)Ordered By: Luciana Pleitez on 03-28-7982Wgbgxongqogysl and review of laboratory results NormalKettering Health PrebleSte.j. noble hospitalococcus sp identified Org specific cx Nom (Unsp spec)No Staphylococcus aureus isolatedKettering Health PrebleUnCentervilleMagnesiumon 60-62-9336Gludgclus [Mass/Vol]1.85 mg/dL1.60 - 2.40 mg/dLUnCentervilleMagnesium [Mass/Vol]on 62-47-8881Mizxogvpcbmjfl and review of laboratory resultsNoal [facility]bleNo Panel Informationon 92-08-2122ApyiozmsmoPomerene HospitalRB shape Nom (Bld)on 65-24-8934Ldybbqsdag LM Ql (Bld)[facility] PrebleOvalocytes LM Ql (Bld)[facility] morphology finding Nom (Bld) See BelowKettering Health PrebleSchistocytes LM Ql (Bld)[facility] PrebleRenal function 2000 panelon 78-64-1113Ezcmskm BCP dye [Mass/Vol]3.5 g/dL3.4 - 5.0 g/dLUnCentervilleAnion gap [Moles/Vol]10 mmol/L10 - 20 mmol/[facility] HospitalCalcium [Mass/Vol]8.9 mg/dL8.6 - 10.6 mg/dLUnCentervilleChloride [Moles/Vol]109 mmol/LHigh98 - 107 mmol/[facility] HospitalCO2 [Moles/Vol]29 mmol/L21 - 32 mmol/[facility] HospitalCreatinine [Mass/Vol]0.37 mg/dLLow0.50 - 1.05 mg/dLUnCenterville GFR/1.73 sq M.predicted MDRD (S/P/Bld) [Vol rate/Area]- [facility] HospitalGlucose [Mass/Vol]125 mg/qTRask25 - 99 mg/dLUnCentervilleInterpretation and review of laboratory resultsAbnormalUniMount St. Mary HospitalPhosphate [Mass/Vol]2.7 mg/dL2.5 - 4.9 mg/dLUnCentervillePotassium [Moles/Vol]3.8 mmol/L3.5 - 5.3 mmol/[facility] HospitalSodium [Moles/Vol]144 mmol/L136 - 145 mmol/[facility] HospitalUrea nitrogen [Mass/Vol]15 mg/dL6 - 23 mg/dLUnCentervilleBasi metabolic 2000 panelon 92-74-1717Fkyix gap [Moles/Vol]12 mmol/L10 - 20 mmol/[facility] HospitalCalcium [Mass/Vol]9.3 mg/dL8.6 - 10.6 mg/dLUnCentervilleChloride [Moles/Vol]108 mmol/LHigh98 - 107 mmol/[facility] HospitalCO2 [Moles/Vol]28 mmol/L21 - 32 mmol/[facility] HospitalCreatinine [Mass/Vol]0.46 mg/dLLow0.50 - 1.05 mg/dLUnCent[place] GFR/1.73 sq M.predicted MDRD (S/P/Bld) [Vol rate/Area]- [facility] HospitalGlucose [Mass/Vol]110 mg/yUKtcx59 - 99 mg/dLUnCentervilleInterpretation and review of laboratory resultsAbnormalUniMount St. Mary HospitalPotassium [Moles/Vol]3.5 mmol/L3.5 - 5.3 mmol/[facility] HospitalSodium [Moles/Vol]144 mmol/L136 - 145 mmol/[facility] HospitalUrea nitrogen [Mass/Vol]13 mg/dL6 - 23 mg/dLUnCentervilleBlmadison hospital type and Indirect antibody screen panel (Bld)on 33-93-2754XVO group Nom (Bld)AUnWadsworth-Rittman Hospital group antibody screen QlNegativeUnCentervilleD Ag Ql (Bld)Positive [facility] PrebleUnCentervilleCBC W Auto Differential panel (Bld)on 97-08-0372Rufqsukbuxa distribution width (RBC) [Ratio]15.5 %High11.5 - 14.5 %[facility] PrebleHematocrit (Bld) [Volume fraction]30.1 %Low36.0 - 46.0 %[facility] Hemoglobin (Bld) [Mass/Vol]9.5 g/dLLow12.0 - 16.0 g/dLUnCentervilleImhannibal regional hospital granulocytes (Bld) [#/Vol]0.00 10*3/uLKettering Health PrebleImhannibal regional hospital granulocytes/100 WBC (Bld)0.0 %0.0 - 0.9 %[facility] (RBC) [Entitic mass]31.6 pg26.0 - 34.0 pgUnAvita Health System Bucyrus HospitalHC (RBC) [Mass/Vol]31.6 g/dLLow32.0 - 36.0 g/dLUnCentervilleMCV (RBC) [Entitic vol]100 fL80 - 100 [facility] CenterniMount [address] Mary HospitalNucleated RBC/100 WBC (Bld) [Ratio]0.0 %[facility] PreblePlatelet mean volume (Bld) [Entitic vol]10.1 fL7.5 - 11.[address] HospitalPlatelets (Bld) [#/Vol]30 10*3/uLCritically lowUnCentervilleRBC (Bld) [#/Vol]3.01 10*6/[facility] HospitalWBC (Bld) [#/Vol]1.6 10*3/[facility] TownshipFibrinogenon 81-52-3601Qrivhlvpew Coag (PPP) [Mass/Vol]213 mg/dL200 - 400 mg/dLK[facility]tering Health Preble Fibrinogen Coag (PPP) [Mass/Vol]on 92-01-9624Ztwzpovjgubwhu and review of laboratory resultsNoAvita Health SystemGlucose Test strip manual (d) [Mass/Vol]on 00-11-2195Gpaqnox [Mass/Vol]159 mg/hUZhke77 - 99 mg/dL [facility] PrebleInterpretation and review of laboratory results AbnormalProMedica Flower Hospital Glucose [Mass/Vol]173 mg/gEOraf68 - 99 mg/dLK[facility]tering Health [facility] Interpretation and review of laboratory resultsAbSelect Medical Cleveland Clinic Rehabilitation Hospital, Edwin ShawGlucose [Mass/Vol]100 mg/wUKhnf45 - 99 mg/dLKettering Health PrebleInterpretation and review of laboratory resultsAbSelect Medical Cleveland Clinic Rehabilitation Hospital, Edwin ShawHbA1c (Bld) [Mass fraction]Ordered By: Elizabeth Horta on 08-04-2023 Average glucose Estimated from glycated hemoglobin (d) [Mass/Vol]94 mg/dLNot [facility] Hemoglobin C2ZSnmupap By: Elizabeth Horta on 29-43-5404SqX5n (Bld) [Mass fraction]4.9 %see [facility] Memorial HospitalHepatic function 2000 panelon 28-94-1593Szntrcy BCP dye [Mass/Vol]3.6 g/dL3.4 - 5.0 g/dLKettering Health PrebleALP [Catalytic activity/Vol]83 U/L33 - 136 U/LUnCentervilleALT With P-5'-P [Catalytic activity/Vol]16 U/L7 - 45 U/L [facility]bleAST With P-5'-P [Catalytic activity/Vol]21 U/L9 - 39 U/[facility] HospitalBilirubin [Mass/Vol]0.9 mg/dL0.0 - 1.2 mg/dLUnCentervilleBilirubin.direct [Mass/Vol]0.3 mg/dL0.0 - 0.3 mg/dLUnCentervilleInterpretation and review of laboratory resultsAbnormalUniversMichiana Behavioral Health CenterProtein [Mass/Vol]5.2 g/dLLow6.4 - 8.2 g/dLUnCentervilleLactate Dehydrogenaseon 20-62-7247MRX Lactate to pyruvate reaction [Catalytic activity/Vol]194 U/L84 - 246 U/[facility] HospitalMagnesiumon 61-07-5926Bkkorlqrm [Mass/Vol]1.66 mg/dL1.60 - 2.40 mg/dLUnCentervilleManual differential performed Ql (Bld)on 66-59-9577Ujgkhcigs (Bld) [#/Vol]0.00 10*3/uL [facility] PrebleBasophils/100 WBC (Bld)0.0 %0.0 - 2.0 % [facility] PrebleCells Counted Total (Bld) [#]108 {cells} [facility] PrebleEosinophils (Bld) [#/Vol]0.07 10*3/[facility] HospitalEosinophils/100 WBC (Bld)4.6 %0.0 - 6.0 %[facility] PrebleLymphocytes (Bld) [#/Vol]0.55 10*3/[facility] HospitalLymphocytes/100 WBC (Bld)34.3 %13.0 - 44.0 %[facility] PrebleMonocytes (Bld) [#/Vol]0.07 10*3/[facility] HospitalMonocytes/100 WBC (Bld)4.6 %2.0 - 10.0 %[facility] PrebleRBC morphology finding Nom (Bld)No significant RBC morphology present [facility] PrebleSegmented neutrophils (Bld) [#/Vol]0.90 10*3/[facility]iverview Health InstituteSegmented neutrophils/100 WBC (Bld)56.5 % 40.0 - 80.0 %[facility]bleNo Panel Informationon 08-04-2023 [facility] PrebleInterpretation and review of laboratory results [facility] Interpretation and review of laboratory resultsNoTriHealth McCullough-Hyde Memorial HospitalPT and aPTT panel Coag (PPP)on 53-58-2832wBIX Coag (PPP) [Time]36 [facility] GlenbeighIN Coag (PPP) [Relative time]1.3 {INR}High0.9 - 1.1 [facility] PrebleInterpretation and review of laboratory results [facility] HospitalPT Coag (PPP) [Time]14.5 [facility] Medical CenterPT and aPTT panel Coag (PPP)Ordered By: Jayesh Nolan on 37-19-0318dVJK Coag (PPP) [Time]139 sCritically highKettering Health PrebleIN Coag (PPP) [Relative time]1.3 {INR}High0.9 - 1.1[facility] Interpretation and review of laboratory resultsAbnoAvita Health SystemPT Coag (PPP) [Time]15.1 UK HealthcarePhosphoruson 57-81-6260Mfwxncjyd [Mass/Vol]4.1 mg/dL2.5 - 4.9 mg/dLThe Christ Hospital-CoV-2 (COVID-19) RNA JOHANN+probe Ql (Resp)Ordered By: Ligia Babcock on 36-34-4638Ognpctzkpmcsuk and review of laboratory resultsNoCleveland Clinic Akron GeneralSARS-CoV-2 RT PCROrdered By: Ligia Babcock on 08-04-2023 SARS-CoV-2 (COVID-19) RNA JOHANN+probe Ql (Resp)Not detectedNot [facility] Hospital DaytonUrate [Mass/Vol]on 59-45-0647Hoqnlitaaghyzl and review of laboratory resultsNormalUniversity Hospitals of ClevelandUric Acidon 08-04-2023 Urate [Mass/Vol]4.2 mg/dL2.3 - 6.7 mg/dLKettering Health PrebleIFE PATH REVIEWon 22-94-4808MSRZ REVIEW-IFEA.[facility] Comment on above:Result Comment: By her/his signature above, the Pathologist listed as making the final interpretation certifies that she/he has personally reviewed this case. Performed By: #### [id number] #### [facility] [address] [place], [place] [address]VTRRGAQ ELECTROPHORESIS + IMMUNOFIXATION, SERUMon 07-27-2023 IMMUNOFIXATION INTERPABNWaseca Hospital and ClinicComment on above: Result Comment: Monoclonal free lambda light chains in the gamma region at 0.1 g/dL. Suggest re-testing after resolution of acute process, if clinical suspicion for monoclonal gammopathy persists.Performed By: #### CUATE #### [facility] [address] [place], [place] [address]GPXNLNUCULTMIVMTTOCJCRPbqfbdVDHendricks Community Hospital Comment on above:Result Comment: Aberrant band detected. See immunofixation. Performed By: #### CUATE #### [facility] [address] [place], [place] [address]Qyspihm [Mass/Vol]0.1 g/dLAbnoBethesda North HospitalComment on above:Performed By: #### CUATE #### [facility] [address] [place], [place] [address]QGD PATH REVIEWon 78-16-2587OPTW REVIEW-SPEA.[facility] HospitalComment on above:Result Comment: By her/his signature above, the Pathologist listed as making the final interpretation certifies that she/he has personally reviewed this case. Performed By: #### CUATE #### [facility] [address] [place], [place] [address]XLOTO/LAMBDA FREE LIGHT CHAIN,Son 29-78-9249UZPY KAPPA/LAMBDA RATIO,S0.04Low0.26 - 1.65[facility] at DenvilleComment on above:Result Comment: Undetected antigen excess is a rare event but cannot be excluded. If these free light chain results do not agree with other clinical or laboratory findings, or if the sample is from a patient that has previously demonstrated antigen excess, the result must be checked by retesting at a higher sample dilution. Results should always be interpreted in conjunction with other laboratory tests and clinical evidence; any anomalies should be discussed with the testing laboratory.Performed By: #### CUATE #### [facility] [address] [place], [place] [address]JOJV LAMBDA LIGHT CHAIN,S35.95 mg/dLHigh0.57 - 2.63[facility] at DenvilleComment on above:Performed By: #### CUATE #### [facility] [address] [place], [place] [address]XFUV KAPPA LIGHT CHAINS,S1.34 mg/dLNormal0.33 - 1.94[facility] at DenvilleComment on above:Performed By: ###Jalen CUELLO #### [facility] [address] [place], [place] [address]VCFVMPN ELECTROPHORESIS + IMMUNOFIXATION, SERUMon 07-24-2023 Albumin [Mass/Vol]3.4 g/dLNormal3.4 - 5.0[facility] at DenvilleComment on above:Performed By: #### CUATE #### [facility] [address] [place], [place] [address]GFWXK 1 GLOBULIN0.3 g/dLNormal0.2 - 0.6[facility] at DenvilleComment on above:Performed By: #### CUATE #### [facility] [address] [place], [place] [address]ATRTJ 2 GLOBULIN0.6 g/dLNormal0.4 - 1.1[facility] at DenvilleComment on above:Performed By: #### CUATE #### [facility] [address] [place], [place] [address]BNID GLOBULIN0.6 g/dLNormal0.5 - 1.2[facility] at DenvilleComment on above:Performed By: #### KALAS #### [facility] [address] [place], [place] [address]OIOLU GLOBULIN0.5 g/dLNormal0.5 - 1.4[facility] at DenvilleComment on above:Performed By: #### CUATE #### [facility] [address] [place], [place] [address]HGX AND DIFFERENTIALon 07-23-2023% AUTOMATED IMMATURE GRAN0.0 %Normal0.0 - 0.9[facility] at DenvilleComment on above:Result Comment: Immature Granulocyte Count (IG) includes promyelocytes, myelocytes and metamyelocytes but does not include bands. Percent differential counts (%) should be interpreted in the context of the absolute cell counts (cells/L).Performed By: #### CMP #### [facility] [address] [place], [place] [address]Prycwfoah (Bld) [#/Vol]0.01 10*3/uLNormal0.00 - 0.10[facility] at DenvilleComment on above:Result Comment: Automated WBC differential has been confirmed by manual smear.Performed By: #### CMP #### [facility] [address] [place], [place] [address]Dfmeclppm/100 WBC (Bld)0.5 %Normal0.0 - 2.0[facility] at DenvilleComment on above:Performed By: #### CMP #### [facility] [address] [place], [place] [address]Afobruyaege (Bld) [#/Vol]0.22 10*3/uLNormal0.00 - 0.70[facility] at DenvilleComment on above:Performed By: #### CMP #### [facility] [address] [place], [place] [address]Icmdetbvxvh/100 WBC (Bld)11.2 %Normal0.0 - 6.0[facility] at DenvilleComment on above:Performed By: #### CMP #### [facility] [address] [place], [place] [address]Qzjpwaowxvg (Bld) [#/Vol]0.52 10*3/uLLow1.20 - 4.80[facility]unnells Specialized HospitalComment on above:Performed By: #### CMP #### [facility] [address] [place], [place] [address]Fcbapskviiz/100 WBC (Bld)26.4 %Jcztxa98.0 - 44.0[facility] at DenvilleComment on above:Performed By: #### CMP #### [facility] [address] [place], [place] [address]Jyujdwwwf (Bld) [#/Vol]0.24 10*3/uLNormal0.10 - 1.00[facility] at DenvilleComment on above:Performed By: #### CMP #### [facility] [address] [place], [place] [address]Xmkiacmop/100 WBC (Bld)12.2 %Normal2.0 - 10.0[facility] DenvilleComment on above:Performed By: #### CMP #### [facility] [address] [place], [place] [address]Mhbwsxkmywc (Bld) [#/Vol]0.98 10*3/uLLow1.20 - 7.70[facility] DenvilleComment on above:Performed By: #### CMP #### [facility] [address] [place], [place] [address]Fxoovdxumuq/100 WBC (Bld)49.7 %Rncphf96.0 - 80.0[facility] DenvilleComment on above:Performed By: #### CMP #### [facility] [address] [place], [place] [address]Hxwohmjecvl distribution width (RBC) [Ratio]16.0 %High11.5 - 14.5[facility] DenvilleComment on above:Performed By: #### CMP #### [facility] [address] [place], [place] [address]Zswhtsvfzb (Bld) [Volume fraction]29.9 %Low36.0 - 46.0[facility] at DenvilleComment on above:Performed By: #### CMP #### [facility] [address] [place], [place] [address]Rftrbtacko (Bld) [Mass/Vol]10.0 g/dLLow12.0 - 16.0[facility]ells Specialized HospitalComment on above:Performed By: #### CMP #### [facility] [address] [place], [place] [address]MPQR (RBC) [Mass/Vol]33.4 g/aHOouenj30.0 - 36.0[facility] DenvilleComment on above:Performed By: #### CMP #### [facility] [address] [place], [place] [address]WZA (RBC) [Entitic vol]99 zPSnktlh90 - 100[facility] DenvilleComment on above:Performed By: #### CMP #### [facility] [address] [place], [place] [address]Bcgvwywkw (Bld) [#/Vol]33 10*3/lWHfr464 - 450[facility] DenvilleComment on above:Performed By: #### CMP #### [facility] [address] [place], [place] [address]PBF0.03 x10E12/LLow4.00 - 5.20[facility] Comment on above:Performed By: #### CMP #### [facility] [address] [place], [place] [address]KTN (Bld) [#/Vol]2.0 10*3/uLLow4.4 - 11.3[facility] DenvilleComment on above:Performed By: #### CMP #### [facility] [address] [place], [place] [address]DXNMASJORGTGL PANELon 95-72-5164Lyutdwe [Mass/Vol]3.5 g/dL Normal3.4 - 5.0[facility] DenvilleComment on above:Performed By: #### KALAS #### [facility] [address] [place], [place] [address]XOJ [Catalytic activity/Vol]83 U/ZJyrtpl99 - 136[facility] DenvilleComment on above:Performed By: #### CUATE #### [facility] [address] [place], [place] [address]MAA [Catalytic activity/Vol]22 U/LNormal7 - 45[facility] DenvilleComment on above:Result Comment: Patients treated with Sulfasalazine may generate falsely decreased results for ALT.Performed By: #### CUATE #### [facility] [address] [place], [place] [address]Zkbxg gap [Moles/Vol]11 mmol/JLxwycz25 - 20[facility] DenvilleComment on above:Performed By: #### CUATE #### [facility] [address] [place], [place] [address]MBJ [Catalytic activity/Vol]27 U/LNormal9 - 39[facility] DenvilleComment on above:Performed By: #### CUATE #### [facility] [address] [place], [place] [address]Eljtvixwj [Mass/Vol]1.2 mg/dLNormal0.0 - 1.2[facility] DenvilleComment on above:Performed By: #### CUATE #### [facility] [address] [place], [place] [address]Ncfaybe [Mass/Vol]8.3 mg/dLLow8.6 - 10.3[facility] DenvilleComment on above:Performed By: #### CUATE #### [facility] [address] [place], [place] [address]Xgvhiugd [Moles/Vol]106 mmol/DBjvtmu12 - 107[facility] DenvilleComment on above:Performed By: #### CUATE #### [facility] [address] [place], [place] [address]Mhsxcvbcgb [Mass/Vol]0.43 mg/dLLow0.50 - 1.05[facility] DenvilleComment on above:Performed By: #### CUATE #### [facility] [address] [place], [place] [address]hKXJ FEMALE>90Normal>90[facility] at DenvilleComment on above:Result Comment: CALCULATIONS OF ESTIMATED GFR ARE PERFORMED USING THE 2020 CKD-EPI STUDY REFIT EQUATION WITHOUT THE RACE VARIABLE FOR THE IDMS-TRACEABLE CREATININE METHODS. https://jasn.asnjournals.org/content//ASN.3548881670Jaeygtphn By: #### CUATE #### [facility] [address] [place], [place] [address]Omcsaie [Mass/Vol]106 mg/mRNobv09 - 99[facility] DenvilleComment on above:Performed By: #### CUATE #### [facility] [address] [place], [place] [address]WUJ5 (Bld) [Moles/Vol]28 mmol/UUjdcbo88 - 32[facility] DenvilleComment on above:Performed By: #### CUATE #### [facility] [address] [place], [place] [address]Amfpidkjz [Moles/Vol]3.8 mmol/LNormal3.5 - 5.3[facility] DenvilleComment on above:Performed By: #### CUATE #### [facility] [address] [place], [place] [address]Oxzzki [Moles/Vol]141 mmol/OHxrsaa408 - 145[facility] at DenvilleComment on above:Performed By: #### CUATE #### [facility] [address] [place], [place] [address]Jpmm nitrogen [Mass/Vol]13 mg/dLNormal6 - 23[facility] at DenvilleComment on above:Performed By: #### CUATE #### [facility] [address] [place], [place] [address]Ztorkd Note - Heme Onc-Follow Up Visiton 33-34-2151Dytxyo Note - Heme Onc-Follow Up VisitPatient Visit Information: Visit Type: Follow Up Visit Cancer History: Treatment Synopsis: She has been referred from Dr. Marinelli at [facility]. 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 Kumari, and then Dr. Cummings. 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 Marrow 05/2023 1q+, 4p-, 13q/-13, 14q- and 16q- 0932-2395 Observation 2019 Palliative XRT both hips 800 cGy 04/10/2020 Velcade dex jennifer 07/31/2021 Radiation to soff tissue area of hip 3000 cGray 08/30/2021 Jennifer rev 12/2021 not a candidate for transplant (pancytopenia - liver cirrhosisO 12/2021 Jennifer/ Pomalidomide -marrow suppression 07/2022 carfilzomib - cyclophosphamide marrow suppression PMH: Aortic aneurysm KAPADIA: at some point she has been listed on liver transplant list COPD DM Fibromyalgia GERD HTN Iron deficiency Surgical hx: Hysterectomy appendectomy cholecystectomy Social Hx: Former smoker, no illision drug, lives with son Allergies: erythromycin and latex and moxifloxacin History of Present Illness: ID Statement: MOJGAN PÉREZ is a 67 year old Female Interval History: As above. Extensively pretreated myeloma relatively asymptomatic and well functioning, but thrombocytopenic because of underlying cirrhosis. Had pain event last night -local ED - unclear what happened. Now resolved. accompanied by son and sister. ROS: Denies fever/chills, headaches, dyspnea, cough, sputum production, palpitations, syncope/near-syncope, peripheral edema, nausea/vomiting/diarrhea, taste changes, mouth sores, night sweats, constipation, abdominal pain, melena, dysuria, hematuria, noticeable lymphadenopathy, rash, numbness/tingling, dizziness, and balance/gait disturbance. has crhonic pain and is on percocet. Remains quite active Allergies and Intolerances: Allergies: moxifloxacin: Drug, Hives/Urticaria, Active tetracycline: Drug, Unknown, Active Avelox: Drug, Rash, Active Latex: Latex, Unknown, Active quinolone antibiotics: Drug Category, Unknown, Active Outpatient Medication Profile: * Patient Currently Takes Medications as of 23-Jul-2023 13:22 documented in Structured Notes fluticasone propionate: Last Dose Taken: Tudorza Pressair 400 mcg/inh inhalation powder: Last Dose Taken: Advair Diskus 250 mcg-50 mcg inhalation powder: Last Dose Taken: , 1 puff(s) inhaled 2 times a day ProAir HFA: Last Dose Taken: Levemir FlexTouch 100 units/mL subcutaneous solution: Last Dose Taken: , Takes 26 units every night sq sertraline 100 mg oral tablet: Last Dose Taken: , 1 tab(s) orally once a day freestyle lite: Last Dose Taken: oxyCODONE 10 mg oral tablet, extended release: Last Dose Taken: , 1 tab(s) orally every 12 hours carvedilol 12.5 mg oral tablet: Last Dose Taken: , 1 tab(s) orally 2 times a day omeprazole 40 mg oral delayed release capsule: Last Dose Taken: , 1 cap(s) orally once a day Vitamin D3: Last Dose Taken: , 1 orally, 500 mg daily metFORMIN 500 mg oral tablet: Last Dose Taken: , 1 orally once a day Vitamin B-12: Zinc 140 mg (as elemental zinc 50 mg) oral tablet: 1 tab(s) orally once a day dexAMETHasone 4 mg oral tablet: 5 tab(s) orally once a day, As Needed gabapentin 600 mg oral tablet: 1 tab(s) orally 3 times a day, As Needed atorvastatin 80 mg oral tablet: 1 tab(s) orally once a day lisinopril 5 mg oral tablet: 1 tab(s) orally once a day DULoxetine 60 mg oral delayed release capsule: 1 cap(s) orally once a day Vitamin C 1000 mg oral tablet: 1 tab(s) orally once a day Medical History: Multiple myeloma not having achieved remission: ICD-10: C90.00, Status: Active Social History: Social Substance History: Smoking Statusformer smoker (1) Performance: Karnofsky Score (Age >/ 16 yrs): 90- Able to carry on normal activity Vitals and Measurements: Vitals: Temp: 36 HR: 73 RR: 16 BP: 103/64 SPO2%: 97 Measurements: HT(cm): 155.6 WT(kg): 81 BSA: 1.87 BMI: 33.4 Physical Exam: Constitutional: Well developed, awake/alert/oriented x3, no distress, alert and cooperative Eyes: PERRL, EOMI, clear sclera ENMT: mucous membranes moist, no apparent injury, no lesions seen Head/Neck: Neck supple, no apparent injury, thyroid without mass or tenderness, No JVD, trachea midline, no bruits Respiratory/Thorax: Patent airways, CTAB, normal breath sounds with good chest expansion, thorax symmetric Cardiovascular: Regular, rate and rhythm, no murmurs, 2+ equal pulses of the extremities, normal S 1and S 2 Musculoskeletal: ROM intact, no joint swelling, normal strength Extremities: normal extremities, no cyanosis edema, contusions or wounds, no clubbin (more content not included)...NormalUH [facility]unnells Specialized HospitalClinic Note - Intakeon 01-72-3739Huwszs Note - IntakePatient Visit Information: Visit TypeFollow Up Visit Source of Informationpatient Admission Information: Admission Since Last VisitNo Vital Signs: Temp (degrees C)36 degrees C Temperatureskin Heart Rate (beats/min)73 beats per minute Respiration (breaths/min)16 breath per minute BP Systolic (mm Hg)103 mmHg BP Diastolic (mm Hg)64 mmHg BP Mean (mm Hg)77 mmHg Height in cm155.6 centimeter(s) Weight in kg81 kilogram(s) Weightstanding BMI (kg/m2)33.4 kg/M2 BSA (m2)1.87 M2 SpO2 (%)97 % Pain Screening: Patient States Painyes Current Pain Score (0-10)6 Pain Description/Locationback / stomach Pain Scale UsedNumeric (0-10) Currently on a Pain Regimenyes Adequately Controlledyes Allergies: moxifloxacin: Drug, Hives/Urticaria, Active tetracycline: Drug, Unknown, Active Avelox: Drug, Rash, Active Latex: Latex, Unknown, Active quinolone antibiotics: Drug Category, Unknown, Active Outpatient Medication Profile: * Patient Currently Takes Medications as of 23-Jul-2023 13:22 documented in Structured Notes fluticasone propionate: Last Dose Taken: Tudorza Pressair 400 mcg/inh inhalation powder: Last Dose Taken: Advair Diskus 250 mcg-50 mcg inhalation powder: Last Dose Taken: , 1 puff(s) inhaled 2 times a day ProAir HFA: Last Dose Taken: Levemir FlexTouch 100 units/mL subcutaneous solution: Last Dose Taken: , Takes 26 units every night sq sertraline 100 mg oral tablet: Last Dose Taken: , 1 tab(s) orally once a day freestyle lite: Last Dose Taken: oxyCODONE 10 mg oral tablet, extended release: Last Dose Taken: , 1 tab(s) orally every 12 hours carvedilol 12.5 mg oral tablet: Last Dose Taken: , 1 tab(s) orally 2 times a day omeprazole 40 mg oral delayed release capsule: Last Dose Taken: , 1 cap(s) orally once a day Vitamin D3: Last Dose Taken: , 1 orally, 500 mg daily metFORMIN 500 mg oral tablet: Last Dose Taken: , 1 orally once a day Vitamin B-12: Zinc 140 mg (as elemental zinc 50 mg) oral tablet: 1 tab(s) orally once a day dexAMETHasone 4 mg oral tablet: 5 tab(s) orally once a day, As Needed gabapentin 600 mg oral tablet: 1 tab(s) orally 3 times a day, As Needed atorvastatin 80 mg oral tablet: 1 tab(s) orally once a day lisinopril 5 mg oral tablet: 1 tab(s) orally once a day DULoxetine 60 mg oral delayed release capsule: 1 cap(s) orally once a day Vitamin C 1000 mg oral tablet: 1 tab(s) orally once a day Notification: NotificationsAnnual Screens Due Dates Advanced Directives: Due Now Family Violence: Jan 01, 2024 Depression (Due every 6 months for ONC only; all others use Annual date): Jun 30, 2023 Substance Use - Alcohol: Jan 01, 2024 Substance Use - Drugs: Jan 01, 2024 Nutrition: Jan 01, 2024 Learning: Jan 01, 2024 Travel History: COVID-19 Screening Completedno exposure or symptoms Travel or ExposureNO travel to International locations in the past 30 days Falls: Have you fallen in the last 6 monthsno Do you have a fear of fallingno Do you feel you need assistanceno Is the patient using an assistive deviceno Not a falls riskimplement environmental risk factors interventions Electronic Signatures: Jeremiah Vu (PCNA) (Signed 23-Jul-2023 13:27) Authored: Patient Visit Information, Vital Signs, Allergies, Outpatient Medication Profile, Notification, Travel History, Falls Last Updated: 23-Jul-2023 13:27 by Jeremiah Vu (PCNA)[facility] and HomeIMMUNOGLOBULINS (G,A,M)on 78-39-1488KxC [Mass/Vol]36 mg/dLLow70 - 400[facility] DenvilleComment on above:Result Comment: MONOCLONAL PROTEINS MAY CAUSE FALSELY LOW RESULTS IN THIS ASSAY. SERUM PROTEIN ELECTROPHORESIS SHOULD BE DONE THE FIRST TEST TO EVALUATE MONOCLONAL GAMMOPATHY.Performed By: #### CUATE #### [facility] [address] [place], [place] [address]RuA [Mass/Vol]522 mg/mHAwq555 - 1600[facility]ells Specialized HospitalComment on above:Result Comment: MONOCLONAL PROTEINS MAY CAUSE FALSELY LOW RESULTS IN THIS ASSAY. SERUM PROTEIN ELECTROPHORESIS SHOULD BE DONE THE FIRST TEST TO EVALUATE MONOCLONAL GAMMOPATHY.Performed By: #### CUATE #### [facility] [address] [place], [place] [address]YdJ [Mass/Vol]36 mg/dLLow40 - 230[facility] Comment on above:Result Comment: MONOCLONAL PROTEINS MAY CAUSE FALSELY LOW RESULTS IN THIS ASSAY. SERUM PROTEIN ELECTROPHORESIS SHOULD BE DONE THE FIRST TEST TO EVALUATE MONOCLONAL GAMMOPATHY.Performed By: #### CUATE #### [facility] [address] [place], [place] [address]HKFVHRJ ELECTROPHORESIS + IMMUNOFIXATION, SERUMon 07-23-2023 Protein [Mass/Vol]5.4 g/dLLow6.4 - 8.2[facility] DenvilleComment on above:Performed By: #### CUATE #### [facility] [address] [place], [place] [address]TOD CELL MORPHOLOGYon 59-44-4722ILHMRBFLNDVerZwehjzORLong Prairie Memorial Hospital and HomeComment on above:Performed By: #### CUATE #### [facility] [address] [place], [place] [address]YTTWAUQTRBUHNLeguJrxsktNLMt. San Rafael HospitalComment on above:Performed By: #### CUATE #### [facility] [address] [place], [place] [address]FKQ morphology finding Nom (Bld)See BelowNoMt. San Rafael HospitalComment on above:Performed By: #### CUATE #### [facility] [address] [place], [place] [address]Zoxcuhg aminotransferase [Enzymatic activity/volume] in Serum or PlasmaOrdered By: Marlon Alba on 76-67-0067MSQ [Catalytic activity/Vol]24 U/L7-52Sal[facility] City HospitalAlbumin [Mass/volume] in Serum or Plasma by Bromocresol green (BCG) dye binding methoOrdered By: Marlon Alba on 37-78-9524Efgxzoz BCG dye [Mass/Vol]3.6 g/dL3.5-5.7FPremier HealthAlkaline phosphatase [Enzymatic activity/volume] in Serum or PlasmaOrdered By: Marlon Alba on 98-00-3084XAS [Catalytic activity/Vol]87 U/X38-676QhhvfoozdSalem City HospitalAnisocytosis LM Ql (Bld)Ordered By: Marlon Alba on 99-59-5613Szwgkdkhasao Ql (Bld)SlightSalem City HospitalAspartate aminotransferase [Enzymatic activity/volume] in Serum or PlasmaOrdered By: Marlon Alba on 87-00-1188UJJ [Catalytic activity/Vol]29 U/W28-88XrpsghlciSalem City HospitalAutomated erythrocytes count in urine sediment (number/area)Ordered By: Marlon Alba on 52-54-6855WQN Auto (Urine sed) [#/Area] 0-1 [HPF]0-4FPremier HealthAutomated leukocytes count in urine sediment (number/area)Ordered By: Marlon Alba on 78-61-2947IDF Auto (Urine sed) [#/Area]5-9 [HPF]0-4FPremier HealthBasophils Auto (Bld) [#/Vol]Ordered By: Marlon Alba on 50-40-9253Lxxhtqngk (Bld) [#/Vol]N/AFPremier HealthBasophils/100 WBC Auto (Bld)Ordered By: Marlon Alba on 56-81-5414Swdmjqbtm/100 WBC (Bld)N/[facility] CenterBilirubin Test strip Ql (U)Ordered By: Marlon Alba on 22-00-8980Pyrxijrzq Ql (U)Negative NegativeSalem City HospitalBilirubin.total [Mass/volume] in Serum or PlasmaOrdered By: Marlon Alba on 90-57-8170Jfyeruhrz [Mass/Vol]1.4 mg/dL 0.3-1.0[facility] City HospitalComment on above:Samples from patients who have taken Naproxen have shown spurious elevation in Total Bilirubin levels. A metabolite of Naproxen, O-desmethylnaproxen, has been shown to interfere with the Victor M method for measuring Total Bilirubin.Calcium [Mass/volume] in Serum or PlasmaOrdered By: Marlon Alba on 49-28-4329Sueybwq [Mass/Vol]8.8 mg/dL8.6-10.3FPremier HealthCarbon dioxide, total [Moles/volume] in Serum or PlasmaOrdered By: Marlon Alba on 77-43-3535KM6 [Moles/Vol]28.9 mmol/L21.0-31.0[facility] HospitalChloride [Moles/volume] in Serum or PlasmaOrdered By: Marlon Alba on 28-19-9234Nvjvacvj [Moles/Vol]108 mmol/J05-268HrlanxbebSalem City HospitalColor Auto (U) Ordered By: Marlon Alba on 80-09-7862Zqnbu (U)YellowYellowSalem City HospitalCreatinine [Mass/volume] in Serum or PlasmaOrdered By: Marlon Alba on 30-80-3204Glsjvkuglv [Mass/Vol]0.48 mg/dL0.60-1.20[facility] HospitalEosinophils Auto (Bld) [#/Vol]Ordered By: Marlon Alba on 97-44-5096Eedtmgjrkqs (Bld) [#/Vol]N/[facility] Eosinophils/100 WBC Auto (Bld)Ordered By: Marlon Alba on 07-22-2023 Eosinophils/100 WBC (Bld)N/[facility] CenterEosinophils/100 WBC Manual cnt (Bld)Ordered By: Marlon Alba on 34-18-2524Xxmqmcyhcxs/100 WBC (Bld) 7 %1-3FPremier HealthErythrocyte distribution width Auto (RBC) [Ratio]Ordered By: Marlon Alba on 04-10-4417Lnxypezkhlv distribution width (RBC) [Ratio]17.1 %11.9-15.3FPremier HealthGiant platelets/100 leukocytes [Ratio] in Blood by Manual countOrdered By: Marlon Alba on 68-73-4403Crlgs platelets/100 WBC Manual cnt (Bld) [Ratio]2 /100{WBC}[facility] City HospitalGlobulin Calc (S) [Mass/Vol]Ordered By: Marlon Alba on 99-98-5209Svnnumlc (S) [Mass/Vol]2.0 g/dLSalem City Hospital Glucose [Mass/volume] in Serum or PlasmaOrdered By: Marlon Alba on 07-22-2023 Glucose [Mass/Vol]91 mg/wX20-251TegipacggSalem City HospitalComment on above:ADA recommended reference rangeRandom Glucose Reference Range is dependent on time and content of last meal. Glucose of more than 200 mg/dL in a nonstressed, ambulatory subject supports the diagnosisof Diabetes Mellitus. Hematocrit Auto (Bld) [Volume fraction]Ordered By: Marlon Alba on 07-22-2023 Hematocrit (Bld) [Volume fraction]30.3 %34.0-46.4FPremier HealthHemoglobin [Mass/volume] in BloodOrdered By: Marlon Alba on 07-22-2023 Hemoglobin (Bld) [Mass/Vol]10.3 g/dL11.8-15.4FPremier Health Ketones Auto test strip (U) [Mass/Vol]Ordered By: Marlon Alba on 07-22-2023 Ketones (U) [Mass/Vol]NegativeNegativeSalem City Hospital Laboratory - UrinalysisOrdered By: Marlon Alba on 37-55-5126Wkysoas casts LM Ql (Urine sed)0-8 [LPF]0-8Sal[facility] City HospitalLeukocytes [#/volume] corrected for nucleated erythrocytes in Blood by Automated counOrdered By: Marlon Alba on 97-40-8351PSD corrected for nucl RBC Auto (Bld) [#/Vol]1.7 10*3/uL3.8-11.6FPremier HealthLymphocytes Auto (Bld) [#/Vol] Ordered By: Marlon Alba on 08-95-2816Vtcndooaonq (Bld) [#/Vol]N/AFirelands Regional Medical CenterLymphocytes/100 WBC Auto (Bld)Ordered By: Marlon Alba on 04-11-0482Qmfqzejhben/100 WBC (Bld)N/[facility] Lymphocytes/100 WBC Manual cnt (Bld)Ordered By: Marlon Alba on 07-22-2023 Lymphocytes/100 WBC (Bld)28 %18-42Sal[facility] City HospitalMCH Auto (RBC) [Entitic mass]Ordered By: Marlon Alba on 89-40-2173NUL (RBC) [Entitic mass]33.2 pg24.7-34.3FPremier HealthMCHC Auto (RBC) [Mass/Vol] Ordered By: Marlon Alba on 52-83-2603ZJCL (RBC) [Mass/Vol]33.9 g/dL32.0-35.0 [facility] HospitalMCV Auto (RBC) [Entitic vol]Ordered By: Marlon Alba on 35-70-5334XKV (RBC) [Entitic vol]97.8 hJ58-085MfsukyfyuSalem City HospitalMonocyte distribution width [Entitic volume] in Blood by AutomatedOrdered By: Marlon Alba on 96-34-1643Yvexnqku distribution width Auto (Bld) [Entitic vol]16.56 %0.00-20.00[facility] HospitalMonocytes Auto (Bld) [#/Vol]Ordered By: Marlon Alba on 07-78-0826Lbbvbriau (Bld) [#/Vol]N/[facility] Medical CenterMonocytes/100 WBC Auto (Bld)Ordered By: Marlon Alba on 98-07-6812Yuobztjee/100 WBC (Bld)N/[facility] Monocytes/100 WBC Manual cnt (Bld)Ordered By: Marlon Alba on 07-22-2023 Monocytes/100 WBC (Bld)6 %2-11[facility] HospitalNeutrophils Auto (Bld) [#/Vol]Ordered By: Marlon Alba on 65-23-4487Pxvqyrdzdwi (Bld) [#/Vol]N/A [facility] HospitalNeutrophils/100 WBC Auto (Bld)Ordered By: Marlon Alba on 11-02-1557Kyzcewjbloh/100 WBC (Bld)N/AFPremier HealthNitrite Test strip Ql (U)Ordered By: Marlon Alba on 03-03-3275Cvwbwyl Ql (U)NegativeNegativeSalem City HospitalNo Panel InformationOrdered By: Marlon Alba on 88-41-3260Gqvvrqnny GFR (CKD-EPI)> 60.0 mL/MinSalem City HospitalPharmacy Creatinine Clearance (Chem69.21Sal[facility] HospitalNucleated erythrocytes [Presence] in Blood by Automated countOrdered By: Marlon Alba on 59-65-6889Auqlzefan RBC Auto Ql (Bld)N/A [facility] HospitalPlatelet adequacy [Presence] in Blood by Light microscopyOrdered By: Marlon Alba on 66-66-2826Akijcoava LM Ql (Bld)Decreased NormalSalem City HospitalPlatelet mean volume Auto (Bld) [Entitic vol]Ordered By: Marlon Alba on 52-24-3450Jruqrmal mean volume (Bld) [Entitic vol]7.8 fL6.3-10.7FPremier HealthPlatelet morphology finding [Identifier] in BloodOrdered By: Marlon Alba on 54-42-0624Wupqtnxy morphology finding Nom (Bld)NormalNormalSalem City HospitalPlatelets Auto (Bld) [#/Vol]Ordered By: Marlon Alba on 87-43-9776Riqnzfftw (Bld) [#/Vol]26 10*3/tZ609-478WuydkoqxhSalem City HospitalComment on above:Critical valueresult calledat 2005 on 07/22/23Polychromasia [Presence] in Blood by Light microscopyOrdered By: Marlon Alba on 11-51-7894Ghmtcezhbggjy LM Ql (Bld)Slight [facility] HospitalPotassium [Moles/volume] in Serum or Plasma Ordered By: Marlon Alba on 50-98-0931Vbufgkozh [Moles/Vol]3.8 mmol/L3.5-5.1 [facility] HospitalProtein Auto test strip (U) [Mass/Vol]Ordered By: Marlon Alba on 07-59-2370Jvgbqzd (U) [Mass/Vol]NegativeNegativeSalem City HospitalProtein [Mass/volume] in Serum or PlasmaOrdered By: Marlon Alba on 59-67-9756Dgcsybp [Mass/Vol]5.6 g/dL6.4-8.9[facility] HospitalRBC Auto (Bld) [#/Vol]Ordered By: Marlon Alba on 82-87-2913ZAE (Bld) [#/Vol]3.10 10*6/uL3.60-5.00Sal[facility] City HospitalRB morphologyOrdered By: Marlon Alba on 26-54-5120BCD morphology finding Nom (Bld) N/AFSouthview Medical Centeregmented neutrophils/100 WBC Manual cnt (Bld)Ordered By: Marlon Alba on 03-60-8352Vbcsqweul neutrophils/100 WBC (Bld)60 %50-70R[facility] Health Instituteerum or plasma albumin/globulin mass ratioOrdered By: Marlon Alba on 74-80-1359Nmpphxp/Globulin [Mass ratio]1.8 {ratio}[facility] Instituteerum or plasma anion gap determination Ordered By: Marlon Alba on 87-17-5632Zyffe gap [Moles/Vol]6.9 mmol/L6.0-15.0 [facility] Instituteodium [Moles/volume] in Serum or PlasmaOrdered By: Marlon Alba on 37-13-0943Oyuwbn [Moles/Vol]140 mmol/X186-981CwxsdslfzRiverview Health Institutepecific gravity Auto test strip (U) [Rel density]Ordered By: Marlon Alba on 89-89-0468Sdvnenfc gravity (U) [Rel density]1.0111.001-1.030 [facility] Institutequamous epithelial cells detection in urine sediment by light microscopyOrdered By: Marlon Alba on 63-78-7713Axyzpsiker cells.squamous LM Ql (Urine sed)1-2 [HPF]0-2FPremier Health Urea nitrogen [Mass/volume] in Serum or PlasmaOrdered By: Marlon Alba on 32-10-7220Dgcs nitrogen [Mass/Vol]13 mg/dL7-25[facility] Urine bacteria detection by automated methodOrdered By: Marlon Alba on 20-41-1841Xmjhkafn Auto Ql (U)None seenNone SeenSalem City HospitalUrine clarity by refractometry automatedOrdered By: Marlon Alba on 93-10-3848Awjmuka Refractometry automated (U)ClearCleNewark HospitalUrine culture routineOrdered By: Marlon Alba on 07-22-2023 Bacteria identified Cx Nom (U)Strep agalactiae - (group b)[facility] HospitalUrine glucose measurement by automated test strip (mass/volume) Ordered By: Marlon Alba on 18-59-1205Ymtbudv Auto test strip (U) [Mass/Vol] Normal mg/dLNoOhioHealth Marion General HospitalUrine hemoglobin detection by automated test stripOrdered By: Marlon Alba on 92-51-4823Uqueacrhbm Auto test strip Ql (U)NegativeNegativeSalem City HospitalUrine leukocyte esterase detection by automated test stripOrdered By: Marlon Alba on 07-22-2023 Leukocyte esterase Auto test strip Ql (U)3+NegativeSalem City HospitalUrobilinogen Auto test strip (U) [Mass/Vol]Ordered By: Marlon Alba on 21-18-4208Mbesxepdxwiz (U) [Mass/Vol]Normal mg/dLNoOhioHealth Marion General HospitalWBC Auto (Bld) [#/Vol]Ordered By: Marlon Alba on 28-76-3861SEW (Bld) [#/Vol]1.7 10*3/uL3.8-11.6FPremier HealthpH Auto test strip (U)Ordered By: Marlon Alba on 21-51-2906kC (U)7.5 [pH]5.0-9.0[facility] HospitalAnisocytosis LM Ql (Bld)Ordered By: Fabiola Marinelli on 39-85-4077Cxvhofitrwys Ql (Bld)SlightSalem City HospitalBasophils Auto (Bld) [#/Vol]Ordered By: Fabiola Marinelli on 87-89-3068Ixbkkzgoi (Bld) [#/Vol]0.0 10*3/uL0.0-0.2FPremier HealthBasophils/100 WBC Auto (Bld) Ordered By: Fabiola Marinelli on 71-63-7200Inogsylzs/100 WBC (Bld)0.2 %.[facility] HospitalEosinophils Auto (Bld) [#/Vol]Ordered By: Fabiola Marinelli on 05-32-4144Omqajedoche (Bld) [#/Vol]0.1 10*3/uL0.0-0.45[facility] HospitalEosinophils/100 WBC Auto (Bld)Ordered By: Fabiola Marinelli on 07-17-2023 Eosinophils/100 WBC (Bld)8.7 %.[facility] HospitalErythrocyte distribution width Auto (RBC) [Ratio]Ordered By: Fabiola Marinelli on 07-17-2023 Erythrocyte distribution width (RBC) [Ratio]16.6 %11.9-15.3FPremier HealthHematocrit Auto (Bld) [Volume fraction]Ordered By: Fabiola Marinelli on 36-17-5517Igopwihnot (Bld) [Volume fraction]29.1 %34.0-46.4FPremier HealthHemoglobin [Mass/volume] in BloodOrdered By: Fabiola Marinelli on 70-46-5105Txykkpkyet (Bld) [Mass/Vol]10.0 g/dL11.8-15.4FPremier HealthLeukocytes [#/volume] corrected for nucleated erythrocytes in Blood by Automated counOrdered By: Fabiola Marinelli on 16-75-9715BXH corrected for nucl RBC Auto (Bld) [#/Vol]1.4 10*3/uL3.8-11.6FPremier Health Lymphocytes Auto (Bld) [#/Vol]Ordered By: Fabiola Marinelli on 62-79-9263Ypoxcwfnpbg (Bld) [#/Vol]0.5 10*3/uL1.00-4.8[facility] HospitalLymphocytes/100 WBC Auto (Bld)Ordered By: Fabiola Marinelli on 29-21-8514Dxoabpqknrh/100 WBC (Bld)32.9 %.[facility] HospitalMCH Auto (RBC) [Entitic mass]Ordered By: Fabiola Marinelli on 39-82-7262MYY (RBC) [Entitic mass]33.2 pg24.7-34.3FPremier HealthMCHC Auto (RBC) [Mass/Vol]Ordered By: Fabiola Marinelli on 02-21-0540PEAJ (RBC) [Mass/Vol]34.2 g/dL32.0-35.0[facility] HospitalMCV Auto (RBC) [Entitic vol]Ordered By: Fabiola Marinelli on 58-17-3629RME (RBC) [Entitic vol] 97.0 oU34-847HsppooknfSalem City HospitalMonocytes Auto (Bld) [#/Vol] Ordered By: Fabiola Marinelli on 80-23-4044Rbzhbtczy (Bld) [#/Vol]0.1 10*3/uL0.0-0.8 [facility] HospitalMonocytes/100 WBC Auto (Bld)Ordered By: Fabiola Marinelli on 74-04-9793Psfkcenjk/100 WBC (Bld)8.9 %.[facility] HospitalNeutrophils Auto (Bld) [#/Vol]Ordered By: Fabiola Marinelli on 07-17-2023 Neutrophils (Bld) [#/Vol]0.7 10*3/uL1.8-7.7FPremier Health Neutrophils/100 WBC Auto (Bld)Ordered By: Fabiola Marinelli on 74-81-4230Uaafljzeghy/100 WBC (Bld)49.3 %.[facility] HospitalNucleated erythrocytes [Presence] in Blood by Automated countOrdered By: Fabiola Marinelli on 07-17-2023 Nucleated RBC Auto Ql (Bld)0.4 /100{WBC}0-0.5FPremier Health Ovalocyte detectionOrdered By: Fabiola Marinelli on 18-04-3134Nfndlxszvf LM Ql (Bld) SlightSalem City HospitalPlatelet adequacy [Presence] in Blood by Light microscopyOrdered By: Fabiola Marinelli on 90-17-3984Etucleawn LM Ql (Bld) DecreasedNormalSalem City HospitalPlatelet mean volume Auto (Bld) [Entitic vol]Ordered By: Fabiola Marinelli on 45-98-6467Sjppnzsh mean volume (Bld) [Entitic vol]8.3 fL6.3-10.7Fire[facility] Regional Medical CenterPlatelet morphology finding [Identifier] in BloodOrdered By: Fabiola Marinelli on 69-33-9141Zwqqyayf morphology finding Nom (Bld)NormalNormalSalem City Hospital Platelets Auto (Bld) [#/Vol]Ordered By: Fabiola Marinelli on 53-72-0276Vdwkjwzfg (Bld) [#/Vol]24 10*3/gD115-118WplrgidpySalem City HospitalComment on above: Critical valueresult calledat 1018 on 07/17/23Poikilocytosis [Presence] in Blood by Light microscopyOrdered By: Fabiola Marinelli on 89-69-5946Iechmjjmghwcmo LM Ql (Bld)SlightSalem City HospitalRBC Auto (Bld) [#/Vol]Ordered By: Fabiola Marinelli on 79-81-9090DJF (Bld) [#/Vol]3.00 10*6/uL3.60-5.00Sal[facility] City HospitalRBC morphologyOrdered By: Fabiola Marinelli on 19-07-1579CRQ morphology finding Nom (Bld)N/AFPremier HealthWBC Auto (Bld) [#/Vol] Ordered By: Fabiola Marinelli on 11-72-1234NIO (Bld) [#/Vol]1.4 10*3/uL3.8-11.6FPremier HealthBasophil percentageOrdered By: Fabiola Marinelli on 07-08-2023 Basophil percentageBasophil jhrvoxaolx62-376YukbfcnjsSalem City Hospital Monocyte %Ordered By: Fabiola Marinelli on 79-10-7169Mylmloat %85 ug/qF33-820UclxggmrnSalem City HospitalComment on above:This test was developed and its performance characteristicsdetermined by [employer]. It has not been cleared orapproved by the Food and Drug Administration. Detection Limit = 5Performed at: - [address] [place], [place] [id number] Director: Maxine Briones MD, Phone: [phone] or plasma ceruloplasmin measurement (mass/volume)Ordered By: Fabiola Marinelli on 09-70-4763Xhavlwfkthihc [Mass/Vol]19.6 mg/dL19.0-39.0[facility] City HospitalComment on above:Performed at: CB - [facility] [address] [place], [place] [id number] Director: Lang Knight PhD, Phone: [phone] [Mass/Vol]Serum or plasma ceruloplasmin measurement (mass/volume)19.0-39.0[facility] HospitalClinic Note - Heme Onc Schedulingon 35-93-9265Ijdsov Note - Heme Onc SchedulingRetrieve Patient Instructions: Patient Instructions: Patient Instructions: RetrievePatient Instructions Return Appointment: Physician/Dept/Saroj Lindquist Appointment Date & Hvzy22-Yxi-1520 01:40 [facility] Commentsl[facility] 1:00 [address] 1st floor across from Desk A End of Visit Documentation: Clinic Location/Phone Number: Clinic Location/Phone Number: [facility] End Of Visit MU Report Item: Visit Summary given or mailed to patientyes Mailed to patient Electronic Signatures: Aracelis Tomlinson (SEC) (Signed 02-Jul-2023 09:48) Authored: Retrieve Patient Instructions, RETURN VISITS, End of Visit Documentation Last Updated: 02-Jul-2023 09:48 by Aracelis Tomlinson (SEC)[facility] HomeAlanine aminotransferase [Enzymatic activity/volume] in Serum or Plasma Ordered By: Fabiola Marinelli on 42-35-8764ZZC [Catalytic activity/Vol]29 U/L7-52 [facility] HospitalAlbumin [Mass/volume] in Serum or Plasma by Bromocresol green (BCG) dye binding methoOrdered By: Fabiola Marinelli on 07-01-2023 Albumin BCG dye [Mass/Vol]3.5 g/dL3.5-5.7FPremier Health Alkaline phosphatase [Enzymatic activity/volume] in Serum or PlasmaOrdered By: Fabiola Marinelli on 90-61-3209ZWU [Catalytic activity/Vol]89 U/A51-060JyecdiupcSalem City HospitalAnisocytosis LM Ql (Bld)Ordered By: Fabiola Marinelli on 14-92-4894Omghczxwzcpu Ql (Bld)SlightSalem City HospitalAspartate aminotransferase [Enzymatic activity/volume] in Serum or PlasmaOrdered By: Fabiola Marinelli on 18-12-9955JWB [Catalytic activity/Vol]33 U/T66-54GldklqusuSalem City HospitalBasophils Auto (Bld) [#/Vol]Ordered By: Fabiola Marinelli on 07-01-2023 Basophils (Bld) [#/Vol]0.0 10*3/uL0.0-0.2FPremier Health Basophils/100 WBC Auto (Bld)Ordered By: Fabiola Marinelli on 83-13-3527Fydbedmlv/100 WBC (Bld)0.2 %.[facility] HospitalBilirubin.total [Mass/volume] in Serum or PlasmaOrdered By: Fabiola Marinelli on 08-34-0690Aggvnilzq [Mass/Vol]1.1 mg/dL 0.3-1.0[facility] HospitalCalcium [Mass/volume] in Serum or Plasma Ordered By: Fabiola Marinelli on 40-19-8591Rjotyzv [Mass/Vol]8.7 mg/dL8.6-10.3FPremier HealthCarbon dioxide, total [Moles/volume] in Serum or Plasma Ordered By: Fabiola Marinelli on 19-53-6805KV2 [Moles/Vol]32.1 mmol/L21.0-31.0[facility] HospitalChloride [Moles/volume] in Serum or PlasmaOrdered By: Fabiola Marinelli on 49-70-9368Guywagqh [Moles/Vol]107 mmol/O91-346VslunwnbfSalem City HospitalCreatinine [Mass/volume] in Serum or PlasmaOrdered By: Fabiola Marinelli on 29-04-8015Tqkcdwpash [Mass/Vol]0.49 mg/dL0.60-1.20[facility] HospitalEosinophils Auto (Bld) [#/Vol]Ordered By: Fabiola Marinelli on 07-01-2023 Eosinophils (Bld) [#/Vol]0.1 10*3/uL0.0-0.45[facility] Eosinophils/100 WBC Auto (Bld)Ordered By: Fabiola Marinelli on 05-79-5924Yruoqxxkyuj/100 WBC (Bld)5.8 %.[facility] HospitalErythrocyte distribution width Auto (RBC) [Ratio]Ordered By: Fabiola Marinelli on 19-30-3207Zbjxcfzykpw distribution width (RBC) [Ratio]16.2 %11.9-15.3FPremier HealthGlobulin Calc (S) [Mass/Vol]Ordered By: Fabiola Marinelli on 16-31-4249Hvaiubew (S) [Mass/Vol]1.9 g/dLSalem City HospitalGlucose [Mass/volume] in Serum or Plasma Ordered By: Fabiola Marinelli on 53-90-9639Eqebmba [Mass/Vol]110 mg/sV44-264VkccflmlhSalem City HospitalComment on above:ADA recommended reference rangeRandom Glucose Reference Range is dependent on time and content of last meal. Glucose of more than 200 mg/dL in a nonstressed, ambulatory subject supports the diagnosisof Diabetes Mellitus.Hematocrit Auto (Bld) [Volume fraction]Ordered By: Fabiola Marinelli on 03-24-5366Qrdaiiarng (Bld) [Volume fraction]31.0 %34.0-46.4 [facility] HospitalHemoglobin [Mass/volume] in BloodOrdered By: Fabiola Marinelli on 14-15-1539Vcgfhcrthk (Bld) [Mass/Vol]10.5 g/dL11.8-15.4FPremier HealthIgA [Mass/volume] in Serum or PlasmaOrdered By: Fabiola Marinelli on 73-81-2959WwJ [Mass/Vol]38 mg/hA83-637BpnqdpkdmSalem City Hospital Comment on above:Result confirmed on concentration.IgG [Mass/volume] in Serum or PlasmaOrdered By: Fabiola Marinelli on 16-52-4877QbE [Mass/Vol]535 mg/sW760-6225 [facility] HospitalIgM [Mass/volume] in Serum or PlasmaOrdered By: Fabiola Marinelli on 18-35-5023ChU [Mass/Vol]33 mg/jQ84-674DmrukhkfqSalem City HospitalComment on above:Performed at: [facility] [address] [id number] Director: Lang Knight PhD, Phone: [phone] Immunoglobulin light chains.kappa.free [Mass/volume] in SerumOrdered By: Fabiola Marinelli on 45-19-2159Rzmhroxqiqdcey light chains.kappa.free (S) [Mass/Vol]11.1 mg/L3.3-19.4FPremier HealthImmunoglobulin light chains.kappa.free/Immunoglobulin light chains.lambda.free [MassOrdered By: Fabiola Marinelli on 05-92-5704Xtfjlqtkkflppo light chains.kappa.free/Immunoglobulin light chains.lambda.free (S) [Mass ratio]0.040.26-1.65Sal[facility] City HospitalComment on above:Performed at: - [address] [id number] Director: Lang Knight PhD, Phone: [phone] Immunoglobulin light chains.lambda.free [Mass/volume] in Serum or PlasmaOrdered By: Fabiola Marinelli on 17-62-5420Frfhcautawessh light chains.lambda.free [Mass/Vol] 306.6 mg/L5.7-26.3FPremier HealthLeukocytes [#/volume] corrected for nucleated erythrocytes in Blood by Automated counOrdered By: Fabiola Marinelli on 89-74-1489ERB corrected for nucl RBC Auto (Bld) [#/Vol]1.6 10*3/uL 3.8-11.6FPremier HealthLymphocytes Auto (Bld) [#/Vol]Ordered By: Fabiola Marinelli on 35-21-7161Bbtcixzfclf (Bld) [#/Vol]0.5 10*3/uL1.00-4.8[facility] HospitalLymphocytes/100 WBC Auto (Bld)Ordered By: Fabiola Marinelli on 05-24-2175Svcrnpkvsqf/100 WBC (Bld)31.1 %.[facility] Auto (RBC) [Entitic mass]Ordered By: Fabiola Marinelli on 54-78-5726CPQ (RBC) [Entitic mass]33.0 pg24.7-34.3FSumma Health Wadsworth - Rittman Medical CenterHC Auto (RBC) [Mass/Vol] Ordered By: Fabiola Marinelli on 05-94-1805LRKL (RBC) [Mass/Vol]33.8 g/dL32.0-35.0 [facility] CenterV Auto (RBC) [Entitic vol]Ordered By: Fabiola Marinelli on 99-94-0540RXH (RBC) [Entitic vol]97.5 yE92-055QhaeyooelSalem City HospitalMonocytes Auto (Bld) [#/Vol]Ordered By: Fabiola Marinelli on 07-01-2023 Monocytes (Bld) [#/Vol]0.2 10*3/uL0.0-0.8[facility] Monocytes/100 WBC Auto (Bld)Ordered By: Fabiola Marinelli on 37-25-0553Hlrxhyose/100 WBC (Bld)10.9 %.[facility] HospitalNeutrophils Auto (Bld) [#/Vol] Ordered By: Fabiola Marinelli on 24-45-7762Vbtzsykcujp (Bld) [#/Vol]0.8 10*3/uL1.8-7.7 [facility] HospitalNeutrophils/100 WBC Auto (Bld)Ordered By: Fabiola Marinelli on 42-61-3121Gedbxweyhdf/100 WBC (Bld)52.0 %.[facility] HospitalNo Panel InformationOrdered By: Fabiola Marnielli on 52-55-2699Yenybypbs GFR (CKD-EPI)> 60.0 mL/MinSalem City HospitalPharmacy Creatinine Clearance (Chem69.42[facility]> 60.0 mL/MinSalem City Hospital69.42[facility] HospitalNucleated erythrocytes [Presence] in Blood by Automated countOrdered By: Fabiola Marinelli on 92-22-9709Xfjdrnqtq RBC Auto Ql (Bld)0.3 /100{WBC}0-0.5FPremier HealthOvalocyte detectionOrdered By: Fabiola Marinelli on 27-27-9976Ozicclvwwj LM Ql (Bld)SlightSalem City HospitalPlatelet adequacy [Presence] in Blood by Light microscopyOrdered By: Fabiola Marinelli on 01-43-3574Kdqfpyefv LM Ql (Bld)DecreasedNormalSalem City HospitalPlatelet mean volume Auto (Bld) [Entitic vol]Ordered By: Fabiola Marinelli on 85-08-8910Gtiujbid mean volume (Bld) [Entitic vol]8.0 fL6.3-10.7FPremier HealthPlatelet morphology finding [Identifier] in BloodOrdered By: Fabiola Marinelli on 21-07-0864Lpbdvazt morphology finding Nom (Bld)NormalNormalSalem City Hospital Platelets Auto (Bld) [#/Vol]Ordered By: Fabiola Marinelli on 18-74-0879Zwpgjadgl (Bld) [#/Vol]26 10*3/vR349-848HgbjimtenSalem City HospitalPoikilocytosis [Presence] in Blood by Light microscopyOrdered By: Fabiola Marinelli on 07-01-2023 Poikilocytosis LM Ql (Bld)[facility] Medical CenterPolychromasia [Presence] in Blood by Light microscopyOrdered By: Fabiola Marinelli on 07-01-2023 Polychromasia LM Ql (Bld)[facility] CenterPotassium [Moles/volume] in Serum or PlasmaOrdered By: Fabiola Marinelli on 89-55-0751Ikhdrwcjo [Moles/Vol]3.8 mmol/L3.5-5.1FPremier HealthProtein [Mass/volume] in Serum or PlasmaOrdered By: Fabiola Marinelli on 38-67-5163Tbfdnge [Mass/Vol]5.4 g/dL6.4-8.9[facility] HospitalRBC Auto (Bld) [#/Vol] Ordered By: Fabiola Marinelli on 14-56-6560BTP (Bld) [#/Vol]3.18 10*6/uL3.60-5.00 [facility] HospitalRBC morphologyOrdered By: Fabiola Marinelli on 21-52-8423ZWX morphology finding Nom (Bld)N/AFPremier Health Serum or plasma albumin/globulin mass ratioOrdered By: Fabiola Marinelli on 07-01-2023 Albumin/Globulin [Mass ratio]1.8 {ratio}[facility]iverview Health Instituteerum or plasma anion gap determinationOrdered By: Fabiola Marinelli on 83-91-9624Iskbi gap [Moles/Vol]6.7 mmol/L6.0-15.0R[facility] Health Instituteodium [Moles/volume] in Serum or PlasmaOrdered By: Fabiola Marinelli on 51-26-4288Zqccwp [Moles/Vol]142 mmol/Z313-013FtgbirhtdSalem City HospitalUrea nitrogen [Mass/volume] in Serum or PlasmaOrdered By: Fabiola Yves on 21-03-4606Wpdq nitrogen [Mass/Vol]11 mg/dL05-26Sal[facility] HospitalWBC Auto (Bld) [#/Vol] Ordered By: Fabiola Marinelli on 71-44-0249YRB (Bld) [#/Vol]1.6 10*3/uL3.8-11.6FPremier HealthAMB - Narrative Note Nursing-called patient with scheduleon 40-80-7992NZD - Narrative Note Nursing-called patient with schedule Topic and Description: Topic: called patient with schedule Description: Patient was a NEW virtual appointment on 06/25/2023. Discussed next visit with patient. Reminded her to get labs 1st and to go to desk C to see Dr. Lindquist on 07/23/2023 asked for 140p time. Asked bonded structures repairer to mail appointments. all orders placed Marshal Oneil RN Electronic Signatures: Ellie Oneil (RN) (Signed 26-Jun-2023 18:57) Authored: Topic and Description Last Updated: 26-Jun-2023 18:57 by Ellie Oneil (RN)[facility]Cl[facility] - Heme Onc-Follow Up Visiton 65-42-9153Exjgcn Note - Heme Onc- Follow Up VisitPatient Visit Information: Visit Type: Follow Up Visit Cancer History: Treatment Synopsis: She has been referred from Dr. Marinelli at [facility]. 2006 MGUS since 2005 for which she was followed at [facility] by Dr. Kumari, and then Dr. Cummings. 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 Marrow 05/2023 1q+, 4p-, 13q/-13, 14q- and 16q- 2678-6336 Observation 2019 Palliative XRT both hips 800 cGy 04/10/2020 Velcade dex jennifer 07/31/2021 Radiation to soff tissue area of hip 3000 cGray 08/30/2021 Jennifer rev 12/2021 not a candidate for transplant (pancytopenia - liver cirrhosisO 12/2021 Jennifer/ Pomalidomide -marrow suppression 07/2022 carfilzomib - cyclophosphamide marrow suppression PMH: Aortic aneurysm KAPADIA: at some point she has been listed on liver transplant list COPD DM Fibromyalgia GERD HTN Iron deficiency Surgical hx: Hysterectomy appendectomy cholecystectomy Social Hx: Former smoker, no illision drug, lives with son Allergies: erythromycin and latex and moxifloxacin History of Present Illness: ID Statement: MOJGAN PÉREZ is a 67 year old Female Interval History: Sje is doing overall fine, we reviewed myeloma progression symptoms which includes bone pain, weight loss, frequent infections, symptoms such as frequent urinations, fever, cough, abdominal pain, upper or lower back pain in details. . Allergies and Intolerances: Allergies: moxifloxacin: Drug, Hives/Urticaria, Active tetracycline: Drug, Unknown, Active Avelox: Drug, Rash, Active Latex: Latex, Unknown, Active quinolone antibiotics: Drug Category, Unknown, Active Outpatient Medication Profile: * Patient Currently Takes Medications as of 01-Jan-2023 15:34 documented in Structured Notes fluticasone propionate: Tudorza Pressair 400 mcg/inh inhalation powder: Advair Diskus 250 mcg-50 mcg inhalation powder: 1 puff(s) inhaled 2 times a day ProAir HFA: Levemir FlexTouch 100 units/mL subcutaneous solution: Takes 26 units every night sq sertraline 100 mg oral tablet: 1 tab(s) orally once a day freestyle lite: oxyCODONE 10 mg oral tablet, extended release: 1 tab(s) orally every 12 hours carvedilol 12.5 mg oral tablet: 1 tab(s) orally 2 times a day omeprazole 40 mg oral delayed release capsule: 1 cap(s) orally once a day Vitamin D3: 1 orally, 500 mg daily metFORMIN 500 mg oral tablet: 1 orally once a day Medical History: Multiple myeloma not having achieved remission: ICD-10: C90.00, Status: Active Family History: No Family History items are recorded in the problem list. Social History: Social Substance History: Smoking Statusformer smoker (1) Physical Exam: Constitutional: Well developed, awake/alert/oriented x3, no distress, alert and cooperative Eyes: PERRL, EOMI, clear sclera ENMT: mucous membranes moist, no apparent injury, no lesions seen Head/Neck: Neck supple, no apparent injury, thyroid without mass or tenderness, No JVD, trachea midline, no bruits Respiratory/Thorax: Patent airways, CTAB, normal breath sounds with good chest expansion, thorax symmetric Cardiovascular: Regular, rate and rhythm, no murmurs, 2+ equal pulses of the extremities, normal S 1and S 2 Musculoskeletal: ROM intact, no joint swelling, normal strength Extremities: normal extremities, no cyanosis edema, contusions or wounds, no clubbing Skin: Warm and dry, no lesions, no rashes Lab Results: Results CBC date/time WBC HGB HCT PLT Neut 01-Jan-2023 16:05 1.8(L) 10.8(L) 31.9(L) 36(L) 0.77(L) BMP date/time NA K CL CO2 BUN CREAT 01-Jan-2023 16:05 143 3.7 106 N/A 11 0.37(L) LDH date/time LDH 01-Jan-2023 16:05 242 Pathology Results: Results Surgical Pathology [Oct 08 2021 5:28PM] ([id number]) Specimens: [facility], [id number] ( 05/03/2021) Name MOJGAN PÉREZ Pathologist: INOCENCIA TSANG MD Date of Procedure: 10/07/2021 Date Received: 10/07/2021 Date Reported 10/08/2021 Submitting Physician: PITER BENAVIDEZ MD Location: [facility] Other External # [id number] FINAL DIAGNOSIS A&B: BONE MARROW, ASPIRATE WITH CLOT AND CORE BIOPSY WITH TOUCH IMPRINT, SITE UNSPECIFIED ([facility], [id number] ( 05/03/2021): --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 NOTE: Per [facility] report, a 0.2% CD56+, CD138+, CD38-, lambda+ monoclonal plasma cell population was detected. Plasma cells are 1.5% by differe (more content not included)...NormalSaint Clare's Hospital at DenvilleAlanine aminotransferase [Enzymatic activity/volume] in Serum or PlasmaOrdered By: Fabiola Marinelli on 57-18-7018PUG [Catalytic activity/Vol]15 U/L7-52[facility] HospitalAlbumin [Mass/volume] in Serum or Plasma by Bromocresol green (BCG) dye binding methoOrdered By: Fabiola Marinelli on 09-46-2060Mfcowhy BCG dye [Mass/Vol]3.7 g/dL3.5-5.7FPremier HealthAlkaline phosphatase [Enzymatic activity/volume] in Serum or PlasmaOrdered By: Fabiola Marinelli on 27-80-9059FSW [Catalytic activity/Vol]87 U/W58-749EmmgjfuyvSalem City HospitalAnisocytosis LM Ql (Bld)Ordered By: Fabiola Marinelli on 85-13-6796Beysxnbpfozw Ql (Bld)SlightSalem City HospitalAspartate aminotransferase [Enzymatic activity/volume] in Serum or PlasmaOrdered By: Fabiola Marinelli on 51-09-8431EOH [Catalytic activity/Vol]23 U/B39-02WjhgytbhdSalem City HospitalBasophils Auto (Bld) [#/Vol]Ordered By: Fabiola Marinelli on 92-47-9348Dcbwnnewc (Bld) [#/Vol]N/[facility] CenterBasophils/100 WBC Auto (Bld) Ordered By: Fabiola Marinelli on 26-71-9950Sxoujcivs/100 WBC (Bld)N/[facility] Medical CenterBilirubin.total [Mass/volume] in Serum or PlasmaOrdered By: Fabiola Marinelli on 07-07-3131Yhhmxytjt [Mass/Vol]1.0 mg/dL0.3-1.0[facility] HospitalCalcium [Mass/volume] in Serum or PlasmaOrdered By: Fabiola Marinelli on 29-77-1135Ohrybem [Mass/Vol]9.0 mg/dL8.6-10.3FPremier Health Carbon dioxide, total [Moles/volume] in Serum or PlasmaOrdered By: Fabiola Marinelli on 96-79-6066SK1 [Moles/Vol]31.4 mmol/L21.0-31.0[facility] Chloride [Moles/volume] in Serum or PlasmaOrdered By: Fabiola Marinelli on 06-03-2023 Chloride [Moles/Vol]106 mmol/V91-726EiwnughxtSalem City HospitalCreatinine [Mass/volume] in Serum or PlasmaOrdered By: Fabiola Marinelli on 23-77-2273Tecrhsnjov [Mass/Vol]0.44 mg/dL0.60-1.20[facility] HospitalEosinophils Auto (Bld) [#/Vol]Ordered By: Fabiola Marinelli on 64-39-8125Mqngchzjaqy (Bld) [#/Vol]N/A [facility] HospitalEosinophils/100 WBC Auto (Bld)Ordered By: Fabiola Marinelli on 96-53-5398Yeuhtzhztxv/100 WBC (Bld)N/AFPremier Health Eosinophils/100 WBC Manual cnt (Bld)Ordered By: Fabiola Marinelli on 06-03-2023 Eosinophils/100 WBC (Bld)3 %1-3FPremier HealthEosinophils/100 WBC (Bld)Eosinophils/100 leukocytes in Blood by Manual count1-3FPremier HealthErythrocyte distribution width Auto (RBC) [Ratio]Ordered By: Fabiola Marinelli on 02-21-0113Bhszsaamaut distribution width (RBC) [Ratio]16.3 % 11.9-15.3FPremier HealthGiant platelets/100 leukocytes [Ratio] in Blood by Manual countOrdered By: Fabiola Marinelli on 81-30-5821Osbbb platelets/100 WBC Manual cnt (Bld) [Ratio]6 /100{WBC}[facility] HospitalGiant platelets/100 WBC Manual cnt (Bld) [Ratio]Giant platelets/100 leukocytes [Ratio] in Blood by Manual countSalem City HospitalGlobulin Calc (S) [Mass/Vol]Ordered By: Fabiola Marinelli on 09-91-1278Npblezru (S) [Mass/Vol]1.8 g/dL [facility] HospitalGlucose [Mass/volume] in Serum or PlasmaOrdered By: Fabiola Marinelli on 34-71-1669Vzgmrxj [Mass/Vol]115 mg/yT46-256KlmktatekSalem City HospitalHematocrit Auto (Bld) [Volume fraction]Ordered By: Fabiola Marinelli on 88-45-2819Niemcpcfhy (Bld) [Volume fraction]30.3 %34.0-46.4FPremier HealthHemoglobin [Mass/volume] in BloodOrdered By: Fabiola Marinelli on 84-68-7456Anxybzoebv (Bld) [Mass/Vol]10.3 g/dL11.8-15.4FPremier HealthIgA [Mass/volume] in Serum or PlasmaOrdered By: Fabiola Marinelli on 67-48-5003QbF [Mass/Vol]38 mg/qL31-641EipukwabrSalem City HospitalIgG [Mass/volume] in Serum or PlasmaOrdered By: Fabiola Marinelli on 21-40-7506MeH [Mass/Vol]525 mg/tF391-3142XffzvwwqsSalem City HospitalIgM [Mass/volume] in Serum or PlasmaOrdered By: Fabiola Marinelli on 48-50-5545GrZ [Mass/Vol]32 mg/jH16-763 [facility] HospitalImmunoglobulin light chains.kappa.free [Mass/volume] in SerumOrdered By: Fabiola Marinelli on 11-20-3238Znlshcscuoipud light chains.kappa.free (S) [Mass/Vol]13.9 mg/L3.3-19.4FPremier HealthImmunoglobulin light chains.kappa.free/Immunoglobulin light chains.lambda.free [MassOrdered By: Fabiola Marinelli on 15-20-9012Clhrjrfkyyixdu light chains.kappa.free/Immunoglobulin light chains.lambda.free (S) [Mass ratio]0.06 0.26-1.65[facility] HospitalImmunoglobulin light chains.lambda.free [Mass/volume] in Serum or PlasmaOrdered By: Fabiola Marinelli on 65-25-6246Htarbmlzgfxzji light chains.lambda.free [Mass/Vol]241.0 mg/L5.7-26.3 [facility] HospitalLeukocytes [#/volume] corrected for nucleated erythrocytes in Blood by Automated counOrdered By: Fabiola Marinelli on 35-08-4818CIS corrected for nucl RBC Auto (Bld) [#/Vol]1.7 10*3/uL3.8-11.6FPremier HealthLymphocytes Auto (Bld) [#/Vol]Ordered By: Fabiola Marinelli on 06-03-2023 Lymphocytes (Bld) [#/Vol]N/[facility] CenterLymphocytes/100 WBC Auto (Bld)Ordered By: Fabiola Marinelli on 92-07-3658Nhyblfncbsp/100 WBC (Bld)N/A [facility] HospitalLymphocytes/100 WBC Manual cnt (Bld)Ordered By: Fabiola Marinelli on 42-40-7063Cpzgrjmbica/100 WBC (Bld)27 %18-42[facility] HospitalLymphocytes/100 WBC (Bld)Lymphocytes/100 leukocytes in Blood by Manual gvaou16-88KactxniyeAultman Orrville Hospital Auto (RBC) [Entitic mass] Ordered By: Fabiola Marinelli on 19-56-8272CQT (RBC) [Entitic mass]32.8 pg24.7-34.3 [facility] CenterHC Auto (RBC) [Mass/Vol]Ordered By: Fabiola Marinelli on 54-25-9950BDSH (RBC) [Mass/Vol]34.0 g/dL32.0-35.0[facility] HospitalMCV Auto (RBC) [Entitic vol]Ordered By: Fabiola Marinelli on 67-58-1199AXY (RBC) [Entitic vol]96.5 zA04-067AjhoxvmkoSalem City HospitalMicrocytes LM Ql (Bld)Ordered By: Fabiola Marinelli on 61-14-8912Jauvgtyluw Ql (Bld)SlightSalem City HospitalMonocytes Auto (Bld) [#/Vol]Ordered By: Fabiola Marinelli on 54-96-9387Ecqkinilz (Bld) [#/Vol]N/[facility] Monocytes/100 WBC Auto (Bld)Ordered By: Fabiola Marinelli on 17-63-8376Lbwvtalfu/100 WBC (Bld)N/[facility] CenterMonocytes/100 WBC Manual cnt (Bld) Ordered By: Fabiola Marinelli on 32-80-4782Fhmdsulws/100 WBC (Bld)9 %2-11[facility] HospitalMonocytes/100 WBC (Bld)Monocytes/100 leukocytes in Blood by Manual count2-[facility] HospitalNeutrophils Auto (Bld) [#/Vol]Ordered By: Fabiola Marinelli on 16-42-1557Brnanqqeafc (Bld) [#/Vol]N/[facility] CenterNeutrophils/100 WBC Auto (Bld)Ordered By: Fabiola Marinelli on 54-59-2147Rztrqxwcpzf/100 WBC (Bld)N/[facility] CenterNo Panel InformationOrdered By: Fabiola Marinelli on 06-03-2023> 60.0 mL/MinSalem City Hospital69.82[facility] HospitalNucleated erythrocytes [Presence] in Blood by Automated countOrdered By: Fabiola Marinelli on 06-03-2023 Nucleated RBC Auto Ql (Bld)[facility] CenterOvalocyte detectionOrdered By: Fabiola Marinelli on 11-35-5219Qfbelsrqej LM Ql (Bld)[facility] HospitalPlatelet adequacy [Presence] in Blood by Light microscopyOrdered By: Fabiola Marinelli on 02-46-1350Bcmjmbdey LM Ql (Bld)Decreased NormalSalem City HospitalPlatelet mean volume Auto (Bld) [Entitic vol]Ordered By: Fabiola Marinelli on 99-53-7506Dygapcqy mean volume (Bld) [Entitic vol] 8.2 fL6.3-10.7FPremier HealthPlatelet morphology finding [Identifier] in BloodOrdered By: Fabiola Marinelli on 24-06-6574Wqofpceg morphology finding Nom (Bld)NormalNormalSalem City HospitalPlatelets Auto (Bld) [#/Vol]Ordered By: Fabiola Marinelli on 20-54-0438Dcyzhqreq (Bld) [#/Vol]28 10*3/aW882-105VrvljexhnSalem City HospitalPoikilocytosis [Presence] in Blood by Light microscopyOrdered By: Fabiola Marinelli on 42-17-9202Zvzcukcnccwrbg LM Ql (Bld)[facility] CenterPolychromasia [Presence] in Blood by Light microscopyOrdered By: Fabiola Marinelli on 83-15-3173Hmpawojfeenvk LM Ql (Bld) [facility] CenterPotassium [Moles/volume] in Serum or PlasmaOrdered By: Fabiola Marinelli on 25-45-7347Peogencpx [Moles/Vol]3.9 mmol/L3.5-5.1 [facility] HospitalProtein [Mass/volume] in Serum or PlasmaOrdered By: Fabiola Marinelli on 69-86-1335Rdxairx [Mass/Vol]5.5 g/dL6.4-8.9[facility] HospitalRB Auto (Bld) [#/Vol]Ordered By: Fabiola Marinelli on 11-23-1925DYI (Bld) [#/Vol]3.14 10*6/uL3.60-5.00[facility] morphology Ordered By: Fabiola Marinelli on 52-77-8338KEA morphology finding Nom (Bld)N/AFSouthview Medical Centeregmented neutrophils/100 WBC Manual cnt (Bld)Ordered By: Fabiola Marinelli on 53-46-7398Mlwisremu neutrophils/100 WBC (Bld)60 %50-70R[facility] Health Instituteegmented neutrophils/100 WBC (Bld)Manual blood segmented neutrophils/100 sgvjedffxi22-11CfpwdwgrkRiverview Health Instituteerum or plasma albumin/globulin mass ratioOrdered By: Fabiola Marinelli on 74-12-8134Atcojdj/Globulin [Mass ratio]2.1 {ratio}[facility] Instituteerum or plasma anion gap determinationOrdered By: Fabiola Marinelli on 53-24-7611Vrcpl gap [Moles/Vol]8.5 mmol/L6.0-15.0[facility] Health Instituteodium [Moles/volume] in Serum or PlasmaOrdered By: Fabiola Marinelli on 13-68-8237Csxbzt [Moles/Vol]142 mmol/X430-480 [facility] HospitalUrea nitrogen [Mass/volume] in Serum or Plasma Ordered By: Fabiola Marinelli on 30-95-9277Qwgb nitrogen [Mass/Vol]16 mg/dL7-25[facility] HospitalWBC Auto (Bld) [#/Vol]Ordered By: Fabiola Marinelli on 16-79-5847CWI (Bld) [#/Vol]1.7 10*3/uL3.8-11.6FLakeHealth [facility] Surgical Pathology Departmenton [id number] Surgical Pathology Department Name MOJGAN PÉREZ Pathologist: GALLO SHEA MD Date of Procedure: 05/29/2023 Date Received: 05/29/2023 Date Reported 06/03/2023 Submitting Physician: MARCUS MILES MD Location: [facility] Other External # [id number] FINAL DIAGNOSIS A. 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 SEE NOTE 1. -- ATYPICAL CD10+ B-CELL POPULATION DETECTED BY FLOW CYTOMETRY STUDIES (12.5% OF TOTAL EVENTS). SEE NOTE 2. 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 Patient was on Daratumubab and velcade, therapy was changed to Daratumubab/Revlimid. Current bone marrow biopsy demonstrates hypocellular marrow for age (10-20%) with slightly increased plasma cells (3-5% of overall cellularity). Flow cytometry studies demonstrated cytoplasmic lambda monoclonal plasma cells. Overall, the morphologic and immunophenotypic findings are consistent with low level persistent plasma cell neoplasm. NOTE: Flow cytometry studies also showed atypical CD19+, CD10 positive, variable CD20, dim CD45, CD34 (subset) B-cell population (12.5% of total events).There are no lymphoid aggregates by morphologic examination and CD20 immunostain highlights scattered B-cells. CD10 immunostain was not performed or submitted for review. Overall, there is no definite morphologic evidence of B-cell lymphoproliferative disorder in the given sample. Review of flow cytometry dot plots would be helpful to determine the immunophenotype of B-cell population reported. Clinical correlation is recommended. Differential: (Normal) % Promyelocytes (1-5) 1 Myelocytes (5-10) 5 Metamyelocytes (10-25) 6 Bands (10-20) 2 Segmented forms (5-30) 16 Eosinophils (2-4) 3 Basophils (0-1) 0 Lymphocytes (5-25) 16 Monocytes (0-2) 1 Plasma Cells (0-2) 3 Blasts (0-1) 0 Total Erythroid (17-35) 47 Number of cells counted: 200 Cellularity: Cellular. M:E Ratio: 0.68:1. Electronically Signed Out By GALLO SHEA MD/MASTER By the signature on this report, the individual or group listed as making the Final Interpretation/Diagnosis certifies that they have reviewed this case. Microscopic Description: CBC: WBC 1.2 x 10E9/L, RBC 3.18 x 10E12/L, Hgb 10.5 g/dl, Hct 31.2%, MCV 98.2 fL, RDW 14.6%, platelets 27 x 10E9/L. A 100 cell manual differential count reveals: polys 25%, lymphocytes 59%, monocytes 12%, eosinophils 4%. PERIPHERAL SMEAR: WBC: Leukopenia. RBC: Normocytic anemia with anisopoikilocytosis. PLATELETS: Thrombocytopenia. ASPIRATE SMEAR: Submitted Specimen: Spicular. Erythropoiesis: Normal maturation with mild dyspoiesis. Granulopoiesis: Normal maturation. Megakaryocytes: Present. Morphology: Normal. TOUCH PREP: Submitted Specimen: Cellular. Comments: Similar to aspirate smear. ASPIRATE CLOT: Submitted Specimen: Spicular. Cellularity:Cellular. Estimated M:E ratio: Consistent with aspirate smear. Megakaryocytes: Adequate. Morphology: Normal. Granulomas: Absent. Lymphoid aggregates: Absent. Comments: Similar to core biopsy. CORE BIOPSY: Submitted Specimen: Adequate. Cellularity: Hypocellular for age (10-20%). Bony trabeculae: Normal. Blasts: Not overtly increased in number. Estimated M:E ratio: Consistent with the aspirate smear. Granulopoiesis: Show progressive maturation. Erythropoiesis: Show progressive maturation. Megakaryocytes: Reduced and rare hypolobated forms seen. Granulomas: Absent. Lymphoid aggregates: Absent. SPECIAL STAINS: Iron: Storage iron is negative; no ring sideroblasts identified (Performed on core biopsy, B1 and clot section, A1). Congo red special stain is negative for amyloid deposition (Performed on core biopsy, B1). IMMUNOHISTOCHEMISTRY: Performed on core biopsy, B1. CD34 immunostain highlights scattered blasts (<1% of overall cellularity). CD31 immunostain highlights few megakaryocytes. CD138 immunostain highlights slightly increased plasma cells (3-5% of overall cellularity). CD20 immunostain highlights scattered B-cells. CD3 immunostain highlights scattered T-cells. CyclinD1 appears to be negative in plasma cells. FLOW CYTOMETRY: Per outside report, flow cytometry studies demonstrated cytoplasmic lambda monoclonal plasma cells. Inverted T cells CD4 by CD8 ratio was noted. Atypical CD10 positive B-cell population detected (12.5% of total events). Myeloid left shift noted. CYTOGENETIC/MOLECULAR STUDIES: Per outside report, cytogenetic studies demonstrated an abnormal result with 1q+, 4p (more content not included)...NormalSaint [facility] Hospital [facility] Comment on above:Performed By: #### CMP #### [facility] [id number] [place], [place] [address]Brwox Note - Heme Onc-cancel and rescheduleon 40-31-3352Jtzwf Note - Heme Onc-cancel and reschedulePhone Call Information: Patient Demographics: Name: MOJGAN PÉREZ Date: 1955 Address: [address] [place] [address] Primary Phone Number: [phone] Reason for Call: Reason for Callcancel and reschedule Outpatient Medication Profile: * Patient Currently Takes Medications as of 01-Jan-2023 15:34 documented in Structured Notes fluticasone propionate: Tudorza Pressair 400 mcg/inh inhalation powder: Advair Diskus 250 mcg-50 mcg inhalation powder: 1 puff(s) inhaled 2 times a day ProAir HFA: Levemir FlexTouch 100 units/mL subcutaneous solution: Takes 26 units every night sq sertraline 100 mg oral tablet: 1 tab(s) orally once a day freestyle lite: oxyCODONE 10 mg oral tablet, extended release: 1 tab(s) orally every 12 hours carvedilol 12.5 mg oral tablet: 1 tab(s) orally 2 times a day omeprazole 40 mg oral delayed release capsule: 1 cap(s) orally once a day Vitamin D3: 1 orally, 500 mg daily metFORMIN 500 mg oral tablet: 1 orally once a day Allergies: moxifloxacin: Hives/Urticaria tetracycline: Unknown Avelox: Rash Latex: Unknown quinolone antibiotics: Unknown Lab Results: Results CBC date/time WBC HGB HCT PLT Neut 01-Jan-2023 16:05 1.8(L) 10.8(L) 31.9(L) 36(L) 0.77(L) BMP date/time NA K CL CO2 BUN CREAT 01-Jan-2023 16:05 143 3.7 106 N/A 11 0.37(L) LDH date/time LDH 01-Jan-2023 16:05 242 Electronic Signatures: Kayli Rodriguez (RN) (Signed 25-May-2023 13:23) Authored: Phone Call Information, Outpatient Medication Profile, Allergies, Results Last Updated: 25-May-2023 13:23 by Kayli Rodriguez (RN)[facility] HomeBasophils/100 WBC Manual cnt (Bld)Ordered By: Fabiola Marinelli on 04-10-2023 Basophils/100 WBC (Bld)2 %0-2FPremier HealthBasophils/100 WBC (Bld)Basophils/100 leukocytes in Blood by Manual count0-2FPremier HealthBlood toxic granulation detection by light microscopyOrdered By: Fabiola Marinelli on 03-25-3802Qrumg granules LM Ql (Bld)[facility] Medical CenterToxic granules LM Ql (Bld)Blood toxic granulation detection by light microscopySalem City HospitalPlatelets Large [Presence] in Blood by Light microscopyOrdered By: Fabiola Marinelli on 40-08-1830Ukgukmkfl Large LM Ql (Bld)[facility] Medical CenterFerritin [Mass/volume] in Serum or PlasmaOrdered By: Fabiola Marinelli on 02-81-6516Vrruddfu [Mass/Vol]41.2 ng/mL 11.0-306.8[facility] HospitalFerritin [Mass/Vol]Ferritin [Mass/volume] in Serum or Aisloj91.0-306.8[facility] Folate [Mass/volume] in Serum or PlasmaOrdered By: Fabiola Marinelli on 67-27-6843Tobpzj [Mass/Vol]27.0 ng/mL>5.9[facility] HospitalComment on above: Folate reference range: >5.9 ng/mlThe WHO technical consultation on folate and vitamin j24uyovareywbsk has determined that folate concentrations lessthan 4 ng/ml are considered deficient.Folate [Mass/Vol]Folate [Mass/volume] in Serum or Plasma>5.9[facility] HospitalIron [Mass/volume] in Serum or PlasmaOrdered By: Fabiola Marinelli on 47-66-1740Rvak [Mass/Vol]82 ug/wE39-757MwqzszhwnSalem City HospitalIron [Mass/Vol]Iron [Mass/volume] in Serum or Plasma 50-212[facility] HospitalIron binding capacity [Mass/volume] in Serum or PlasmaOrdered By: Fabiola Marinelli on 09-19-6184Obri binding capacity [Mass/Vol]314 ug/vT071-523GwhibaubrSalem City HospitalIron binding capacity [Mass/Vol]Iron binding capacity [Mass/volume] in Serum or Qjeloq690-882 [facility] HospitalIron saturation [Mass Fraction] in Serum or PlasmaOrdered By: Fabiola Marinelli on 47-06-3637Scqq saturation [Mass fraction]26.1 % 20-50[facility] HospitalIron saturation [Mass fraction]Iron saturation [Mass Fraction] in Serum or Hdkpsg04-01HoxnkjjmiSalem City HospitalMonocyte %Ordered By: Fabiola Marinelli on 87-95-0142Wzvuqahl %83 ug/tX46-328 [facility] Instituteerum or plasma ceruloplasmin measurement (mass/volume)Ordered By: Fabiola Marinelli on 23-31-5711Ixhhfltothymr [Mass/Vol]17.5 mg/dL19.0-39.0R[facility] Health Instituteerum or plasma homocysteine measurement (moles/volume)Ordered By: Fabiola Marinelli on 74-28-7898Ezlbayiclbys [Moles/Vol]7.9 umol/L0.0-17.2FPremier HealthComment on above: Performed at: [facility] [address] [id number] Director: Lang Knight PhD, Phone: [phone] [Moles/Vol]Serum or plasma homocysteine measurement (moles/volume)0.0-17.2FSouthview Medical Centererum or plasma methylmalonate measurement (moles/volume)Ordered By: Fabiola Marinelli on 53-51-0594Aqfwjohfyjhjpv [Moles/Vol]129 nmol/L0-378[facility] HospitalComment on above:This test was developed and its performance characteristicsdetermined by [employer]. It has not been cleared orapproved by the Food and Drug Administration.Performed at: [address] [id number] Director: Maxine Briones MD, Phone: [phone] [Moles/Vol]Serum or plasma methylmalonate measurement (moles/volume)0-378[facility] HospitalTransferrin [Mass/volume] in Serum or PlasmaOrdered By: Fabiola Marinelli on 50-35-3887Piicnfgtiuq [Mass/Vol]224 mg/fB458-876WtxxxbmamSalem City HospitalTransferrin [Mass/Vol]Transferrin [Mass/volume] in Serum or Jmvabo450-787OonxxxmibSalem City HospitalVitamin B12 ser/plasOrdered By: Fabiola Marinelli on 03-53-6961Ctlslfubt (Vitamin B12) [Mass/Vol]1029 pg/dEMpam039-597GkvkhswcaSalem City Hospital Cobalamin (Vitamin B12) [Mass/Vol]Vitamin B12 ser/kqteUncs906-320FedpygabzSalem City HospitalAlanine aminotransferase [Enzymatic activity/volume] in Serum or PlasmaOrdered By: Fabiola Marinelli on 21-08-4980YPX [Catalytic activity/Vol]23 U/L7-52[facility] HospitalAlbumin [Mass/volume] in Serum or Plasma by Bromocresol green (BCG) dye binding methoOrdered By: Fabiola Marinelli on 03-09-2023 Albumin BCG dye [Mass/Vol]3.6 g/dL3.5-5.7FPremier Health Alkaline phosphatase [Enzymatic activity/volume] in Serum or PlasmaOrdered By: Fabiola Marinelli on 78-44-0679YZW [Catalytic activity/Vol]89 U/O63-194WhoqlrrkgSalem City HospitalAnisocytosis LM Ql (Bld)Ordered By: Fabiola Marinelli on 92-21-8989Zhflryxdtykf Ql (Bld)SlightSalem City HospitalAspartate aminotransferase [Enzymatic activity/volume] in Serum or PlasmaOrdered By: Fabiola Marinelli on 43-21-1751DDA [Catalytic activity/Vol]25 U/Z15-84WdhmffcdgSalem City HospitalBasophils Auto (Bld) [#/Vol]Ordered By: Fabiola Marinelli on 03-09-2023 Basophils (Bld) [#/Vol]0.0 10*3/uL0.0-0.2FPremier Health Basophils/100 WBC Auto (Bld)Ordered By: Fabiola Marinelli on 45-55-3850Ndniiadbg/100 WBC (Bld)0.1 %.[facility] HospitalBilirubin.total [Mass/volume] in Serum or PlasmaOrdered By: Fabiola Marinelli on 56-09-5323Awiwnarrj [Mass/Vol]1.3 mg/dL 0.3-1.0[facility] HospitalCalcium [Mass/volume] in Serum or Plasma Ordered By: Fabiola Marinelli on 38-16-1696Wibzzts [Mass/Vol]8.7 mg/dL8.6-10.3FPremier HealthCarbon dioxide, total [Moles/volume] in Serum or Plasma Ordered By: Fabiola Marinelli on 96-96-7038HN5 [Moles/Vol]27.8 mmol/L21.0-31.0[facility] HospitalChloride [Moles/volume] in Serum or PlasmaOrdered By: Fabiola Marinleli on 48-92-8613Wmzztjgh [Moles/Vol]105 mmol/M92-271SmcrdocweSalem City HospitalCreatinine [Mass/volume] in Serum or PlasmaOrdered By: Fabiola Marinelli on 92-94-4509Oyqyeoigqn [Mass/Vol]0.54 mg/dL0.60-1.20[facility] HospitalEosinophils Auto (Bld) [#/Vol]Ordered By: Fabiola Marienlli on 03-09-2023 Eosinophils (Bld) [#/Vol]0.1 10*3/uL0.0-0.45[facility] Eosinophils/100 WBC Auto (Bld)Ordered By: Fabiola Marinelli on 43-54-4370Llvfvlspvlv/100 WBC (Bld)2.1 %.[facility] HospitalErythrocyte distribution width Auto (RBC) [Ratio]Ordered By: Fabiola Marinelli on 17-24-3793Znklgmkcuyt distribution width (RBC) [Ratio]15.4 %11.9-15.3FPremier HealthGlobulin Calc (S) [Mass/Vol]Ordered By: Fabiola Marinelli on 95-36-9539Wkwcsprf (S) [Mass/Vol]1.6 g/dLSalem City HospitalGlucose [Mass/volume] in Serum or Plasma Ordered By: Fabiola Marinelli on 10-40-8762Lohlqrh [Mass/Vol]100 mg/xV52-023TvvuxlxztSalem City HospitalHematocrit Auto (Bld) [Volume fraction]Ordered By: Fabiola Marinelli on 67-56-0609Njypmgcjbg (Bld) [Volume fraction]33.1 %34.0-46.4FPremier HealthHemoglobin [Mass/volume] in BloodOrdered By: Fabiola Marinelli on 94-35-4031Audoguvvtt (Bld) [Mass/Vol]11.1 g/dL11.8-15.4FPremier HealthIgA [Mass/volume] in Serum or PlasmaOrdered By: Fabiola Marinelli on 15-66-5086IwK [Mass/Vol]26 mg/pR08-138UkecoihizSalem City HospitalIgG [Mass/volume] in Serum or PlasmaOrdered By: Fabiola Marinelli on 05-85-7206CvN [Mass/Vol]596 mg/cW190-1178HcjvxqhufSalem City HospitalIgM [Mass/volume] in Serum or PlasmaOrdered By: Fabiola Marinelli on 21-85-9441AjG [Mass/Vol]27 mg/vX42-026 [facility] HospitalImmunoglobulin light chains.kappa.free [Mass/volume] in SerumOrdered By: Fabiola Marinelli on 28-40-7914Hncovywpnrnkyn light chains.kappa.free (S) [Mass/Vol]9.6 mg/L3.3-19.4FPremier HealthImmunoglobulin light chains.kappa.free/Immunoglobulin light chains.lambda.free [MassOrdered By: Fabiola Marinelli on 50-96-1436Mmifkcpwusmngw light chains.kappa.free/Immunoglobulin light chains.lambda.free (S) [Mass ratio]0.07 0.26-1.65[facility] HospitalImmunoglobulin light chains.lambda.free [Mass/volume] in Serum or PlasmaOrdered By: Fabiola Marinelli on 66-75-8443Wdrkppyhfslfwo light chains.lambda.free [Mass/Vol]128.9 mg/L5.7-26.3 [facility] HospitalLeukocytes [#/volume] corrected for nucleated erythrocytes in Blood by Automated counOrdered By: Faboila Marinelli on 12-22-4700XLY corrected for nucl RBC Auto (Bld) [#/Vol]2.4 10*3/uL3.8-11.6FPremier HealthLymphocytes Auto (Bld) [#/Vol]Ordered By: Fabiola Marinelli on 03-09-2023 Lymphocytes (Bld) [#/Vol]0.7 10*3/uL1.00-4.8[facility] Lymphocytes/100 WBC Auto (Bld)Ordered By: Fabiola Marinelli on 07-03-8557Ophbmyuzyck/100 WBC (Bld)30.2 %.[facility] CenterH Auto (RBC) [Entitic mass] Ordered By: Fabiola Marinelli on 76-98-9553ANY (RBC) [Entitic mass]33.0 pg24.7-34.3 [facility] HospitalMCHC Auto (RBC) [Mass/Vol]Ordered By: Fabiola Marinelli on 43-25-4772GYBB (RBC) [Mass/Vol]33.4 g/dL32.0-35.0[facility] HospitalMCV Auto (RBC) [Entitic vol]Ordered By: Fabiola Marinelli on 96-64-1384ACZ (RBC) [Entitic vol]98.8 hC40-020CiikzkadbSalem City HospitalMonocytes Auto (Bld) [#/Vol]Ordered By: Fabiola Marinelli on 94-79-2556Tvenedhzg (Bld) [#/Vol]0.3 10*3/uL 0.0-0.8[facility] HospitalMonocytes/100 WBC Auto (Bld)Ordered By: Fabiola Marinelli on 19-30-6207Yoqidmobo/100 WBC (Bld)11.1 %.[facility] HospitalNeutrophils Auto (Bld) [#/Vol]Ordered By: Fabiola Marinelli on 03-09-2023 Neutrophils (Bld) [#/Vol]1.4 10*3/uL1.8-7.7FPremier Health Neutrophils/100 WBC Auto (Bld)Ordered By: Fabiola Marinelli on 60-28-0962Yhfaeveonkg/100 WBC (Bld)56.5 %.[facility] HospitalNo Panel InformationOrdered By: Fabiola Marinelli on 03-09-2023> 60.0 mL/MinSalem City Hospital69.82 [facility] HospitalNucleated erythrocytes [Presence] in Blood by Automated countOrdered By: Fabiola Marinelli on 39-64-1232Ufzyygjfh RBC Auto Ql (Bld)0.0 /100{WBC}0-0.5FPremier HealthPlatelet adequacy [Presence] in Blood by Light microscopyOrdered By: Fabiola Marinelli on 96-31-4654Ivvodhigp LM Ql (Bld)DecreasedNormalSalem City HospitalPlatelet mean volume Auto (Bld) [Entitic vol]Ordered By: Fabiola Marinelli on 68-81-7705Sdrskvvn mean volume (Bld) [Entitic vol]8.3 fL6.3-10.7FPremier HealthPlatelet morphology finding [Identifier] in BloodOrdered By: Fabiola Marinelli on 58-48-2636Kzdylmat morphology finding Nom (Bld)N/AFPremier HealthPlatelets Auto (Bld) [#/Vol]Ordered By: Fabiola Marinelli on 22-76-1128Cltsdhkdq (Bld) [#/Vol]28 10*3/lN108-214FjcsffydySalem City HospitalPlatebaystate wing hospital Large [Presence] in Blood by Light microscopyOrdered By: Fabiola Marinelli on 87-89-4839Oolukeqbb Large LM Ql (Bld)[facility] CenterPolychromasia [Presence] in Blood by Light microscopyOrdered By: Fabiola Marinelli on 60-89-1817Qmhowxvbarbdr LM Ql (Bld) [facility] CenterPotassium [Moles/volume] in Serum or PlasmaOrdered By: Fabiola Marinelli on 02-46-1564Tckhtfujn [Moles/Vol]3.7 mmol/L3.5-5.1 [facility] HospitalProtein [Mass/volume] in Serum or PlasmaOrdered By: Fabiola Marinelli on 89-22-1708Ydhhvnr [Mass/Vol]5.2 g/dL6.4-8.9[facility] HospitalRBC Auto (Bld) [#/Vol]Ordered By: Fabiola Marinelli on 98-78-9443LBY (Bld) [#/Vol]3.35 10*6/uL3.60-5.00[facility] HospitalRBC morphology Ordered By: Fabiola Marinelli on 13-00-1163OCD morphology finding Nom (Bld)N/[facility] Systemerum or plasma albumin/globulin mass ratioOrdered By: Fabiola Marinelli on 02-08-9929Uqpnrkm/Globulin [Mass ratio]2.3 {ratio}[facility] Instituteerum or plasma anion gap determinationOrdered By: Fabiola Marinelli on 21-63-1734Fhmto gap [Moles/Vol]12.9 mmol/L6.0-15.0R[facility] Health Instituteodium [Moles/volume] in Serum or PlasmaOrdered By: Fabiola Marinelli on 69-44-6643Rsbswj [Moles/Vol]142 mmol/B299-372XpqubekngSalem City Hospital Teardrop cell detectionOrdered By: Fabiola Marinelli on 85-73-9470Zybagugewc LM Ql (Bld) [facility] CenterUrea nitrogen [Mass/volume] in Serum or PlasmaOrdered By: Fabiola Marinelli on 12-52-9903Jkii nitrogen [Mass/Vol]17 mg/dL7-25 [facility] HospitalWBC Auto (Bld) [#/Vol]Ordered By: Fabiola Marinelli on 22-73-7692BCC (Bld) [#/Vol]2.4 10*3/uL3.8-11.6FPremier Health Activated partial thromboplastin time (aPTT) in platelet poor plasma by coagulation aOrdered By: Fabiola Marinelli on 05-85-8596aYZW Coag (PPP) [Time]48.7 s 25.1-36.5FPremier HealthAnisocytosis LM Ql (Bld)Ordered By: Fabiola Marinelli on 47-24-9721Ubyppohyijdd Ql (Bld)[facility] CenterBasophils Auto (Bld) [#/Vol]Ordered By: Fabiola Marinelli on 41-10-6048Agikilmrm (Bld) [#/Vol]N/[facility] CenterBasophils/100 WBC Auto (Bld) Ordered By: Fabiola Marinelli on 71-93-8122Jgkvkicdk/100 WBC (Bld)N/[facility] CenterEosinophils Auto (Bld) [#/Vol]Ordered By: Fabiola Marinelli on 02-24-2023 Eosinophils (Bld) [#/Vol]N/[facility] CenterEosinophils/100 WBC Auto (Bld)Ordered By: Fabiola Marinelli on 04-39-1511Crnrxkjzxtc/100 WBC (Bld)N/A [facility] HospitalEosinophils/100 WBC Manual cnt (Bld)Ordered By: Fabiola Marinelli on 05-76-8995Eupswguuotx/100 WBC (Bld)4 %1-3FPremier HealthErythrocyte distribution width Auto (RBC) [Ratio]Ordered By: Fabiola Marinelli on 70-08-8917Wrhvndrvrkv distribution width (RBC) [Ratio]14.6 %11.9-15.3 [facility] HospitalHematocrit Auto (Bld) [Volume fraction]Ordered By: Fabiola Marinelli on 98-24-5666Jeatzlivne (Bld) [Volume fraction]31.2 %34.0-46.4 [facility] HospitalHemoglobin [Mass/volume] in BloodOrdered By: Fabiola Marinelli on 71-09-6399Zevypjoqav (Bld) [Mass/Vol]10.5 g/dL11.8-15.4FPremier HealthLaboratory - CoagulationOrdered By: Fabiola Marinelli on 02-55-0771LX Coag (PPP) [Time]14.7 s9.0-12.9[facility] Leukocytes [#/volume] corrected for nucleated erythrocytes in Blood by Automated counOrdered By: Fabiola Marinelli on 08-27-9029KIV corrected for nucl RBC Auto (Bld) [#/Vol]1.2 10*3/uL3.8-11.6FPremier HealthLymphocytes Auto (Bld) [#/Vol]Ordered By: Fabiola Marinelli on 89-50-3482Fcvlouuvbzm (Bld) [#/Vol]N/A [facility] HospitalLymphocytes/100 WBC Auto (Bld)Ordered By: Fabiola Marinelli on 99-72-2422Ikzwojspend/100 WBC (Bld)N/[facility] Lymphocytes/100 WBC Manual cnt (Bld)Ordered By: Fabiola Marinelli on 02-24-2023 Lymphocytes/100 WBC (Bld)59 %18-42[facility] CenterH Auto (RBC) [Entitic mass]Ordered By: Fabiola Marinelli on 31-41-7908RPI (RBC) [Entitic mass] 33.1 pg24.7-34.3FPremier HealthMCHC Auto (RBC) [Mass/Vol] Ordered By: Fabiola Marinelli on 84-32-8067YKEX (RBC) [Mass/Vol]33.7 g/dL32.0-35.0 [facility] HospitalMCV Auto (RBC) [Entitic vol]Ordered By: Fabiola Marinelli on 19-60-1445HWN (RBC) [Entitic vol]98.2 mV87-410PvmwjoxooSalem City HospitalMonocytes Auto (Bld) [#/Vol]Ordered By: Fabiola Marinelli on 02-24-2023 Monocytes (Bld) [#/Vol]NDayton Osteopathic HospitalMonocytes/100 WBC Auto (Bld)Ordered By: Fabiola Marinelli on 50-38-8470Scaavyllp/100 WBC (Bld)N/[facility] CenterMonocytes/100 WBC Manual cnt (Bld)Ordered By: Fabiola Marinelli on 68-44-3355Semzhphvr/100 WBC (Bld)12 %2-11[facility] Neutrophils Auto (Bld) [#/Vol]Ordered By: Fabiola Marinelli on 96-61-1950Octvacikcfy (Bld) [#/Vol]NDayton Osteopathic HospitalNeutrophils/100 WBC Auto (Bld) Ordered By: Fabiola Marinelli on 46-13-8147Avbaaxmxkmp/100 WBC (Bld)[facility] CenterNo Panel InformationOrdered By: Fabiola Marinelli on 02-24-2023 14.7 s9.0-12.9[facility] HospitalNucleated erythrocytes [Presence] in Blood by Automated countOrdered By: Fabiola Marinelli on 96-17-3508Luifigzgt RBC Auto Ql (Bld)[facility] CenterOvalocyte detectionOrdered By: Fabiola Marinelli on 07-50-7827Mkuyxyjqfl LM Ql (Bld)[facility] CenterPlatelet adequacy [Presence] in Blood by Light microscopyOrdered By: Fabiola Marinelli on 81-77-2543Zpzysjpjx LM Ql (Bld)DecreasedNormalSalem City HospitalPlatelet mean volume Auto (Bld) [Entitic vol]Ordered By: Fabiola Marinelli on 81-41-8596Mqkjtscc mean volume (Bld) [Entitic vol]8.2 fL6.3-10.7FPremier HealthPlatelet morphology finding [Identifier] in BloodOrdered By: Fabiola Marinelli on 00-07-7292Ftmqioxe morphology finding Nom (Bld)NormalNormal [facility] HospitalPlateboundary community hospital poor plasma international normalized ratio (INR) by coagulation assay (relatOrdered By: Fabiola Marinelli on 68-69-2481HHC Coag (PPP) [Relative time]1.3 {INR}[facility] HospitalComment on above:INR Therapeutic Range A) Pre- and Peroperative OAT started two weeks before surgery. NOT HIP SURGERY: 1.5 - 2.5 HIP SURGERY: 2 - 3B) Primary and secondary prevention of venous THROMBOSIS: 2 - 3C) Active venous thrombosis, pulmonary embolismand prevention of recurrent venous thrombosis: 2 - 3D) Preve ntion of arterial thromboembolismincluding patients with mechanical heart valves: 3 - 4.5Platelets Auto (Bld) [#/Vol]Ordered By: Fabiola Marinelli on 02-24-2023 Platelets (Bld) [#/Vol]27 10*3/dD221-399VdiaywfxjSalem City HospitalComment on above:Critical Result PLT:27 called to and read back by: [id number] on 02/24/2023 09:24:57 by:[id number].Poikilocytosis [Presence] in Blood by Light microscopyOrdered By: Fabiola Marinelli on 94-55-9198Yfsjtboeljjkwq LM Ql (Bld)[facility] HospitalPolychromasia [Presence] in Blood by Light microscopyOrdered By: Fabiola Marinelli on 93-39-3839Gvmuoavmjbgyh LM Ql (Bld)[facility] HospitalRBC Auto (Bld) [#/Vol]Ordered By: Fabiola Marinelli on 39-65-2010WKO (Bld) [#/Vol]3.18 10*6/uL3.60-5.00[facility] HospitalRBC morphologyOrdered By: Fabiola Marinelli on 47-82-9126VGX morphology finding Nom (Bld)N/[facility] Systemegmented neutrophils/100 WBC Manual cnt (Bld)Ordered By: Fabiola Marinelli on 56-21-1641Glrnfpnxk neutrophils/100 WBC (Bld)25 %50-70[facility] HospitalTeardrop cell detectionOrdered By: Fabiola Marinelli on 81-72-3739Qahsvuwqir LM Ql (Bld)SlightSalem City HospitalWBC Auto (Bld) [#/Vol]Ordered By: Fabiola Marinelli on 03-61-6592DOK (Bld) [#/Vol]1.2 10*3/uL3.8-11.6FPremier HealthAlanine aminotransferase [Enzymatic activity/volume] in Serum or PlasmaOrdered By: Fabiola Marinelli on 56-64-0831XSN [Catalytic activity/Vol]17 U/L7-52[facility] HospitalAlbumin [Mass/volume] in Serum or Plasma by Bromocresol green (BCG) dye binding methoOrdered By: Fabiola Marinelli on 01-33-3391Xgqjxyx BCG dye [Mass/Vol]3.6 g/dL3.5-5.7FPremier HealthAlkaline phosphatase [Enzymatic activity/volume] in Serum or PlasmaOrdered By: Fabiola Marinelli on 20-89-4469QRP [Catalytic activity/Vol]88 U/Y93-020SkerpcxukSalem City HospitalAspartate aminotransferase [Enzymatic activity/volume] in Serum or Plasma Ordered By: Fabiola Marinelli on 63-94-8080DWS [Catalytic activity/Vol]24 U/L13-39 [facility] HospitalBasophils Auto (Bld) [#/Vol]Ordered By: Fabiola Marinelli on 86-22-6577Gfkaqygdn (Bld) [#/Vol]N/[facility] Basophils/100 WBC Auto (Bld)Ordered By: Fabiola Marinelli on 53-66-5581Gjacpiamw/100 WBC (Bld)N/[facility] CenterBilirubin.total [Mass/volume] in Serum or PlasmaOrdered By: Fabiola Marinelli on 49-21-2296Nwthwfkdh [Mass/Vol]1.2 mg/dL 0.3-1.0[facility] HospitalCalcium [Mass/volume] in Serum or Plasma Ordered By: Fabiola Marinelli on 28-67-0622Zyztkyv [Mass/Vol]8.7 mg/dL8.6-10.3FPremier HealthCarbon dioxide, total [Moles/volume] in Serum or Plasma Ordered By: Fabiola Marinelli on 44-87-1734YP3 [Moles/Vol]28.9 mmol/L21.0-31.0[facility] HospitalChloride [Moles/volume] in Serum or PlasmaOrdered By: Fabiola Marinelli on 94-14-4648Wszoamox [Moles/Vol]106 mmol/D32-962ItkvhxtvySalem City HospitalCreatinine [Mass/volume] in Serum or PlasmaOrdered By: Fabiola Marinelli on 52-28-4977Igcfsyyrck [Mass/Vol]0.45 mg/dL0.60-1.20[facility] HospitalEosinophils Auto (Bld) [#/Vol]Ordered By: Fabiola Marinelli on 02-17-2023 Eosinophils (Bld) [#/Vol]N/AFPremier HealthEosinophils/100 WBC Auto (Bld)Ordered By: Fabiola Marinelli on 30-26-6721Svwnecoqkbj/100 WBC (Bld)N/A [facility] HospitalEosinophils/100 WBC Manual cnt (Bld)Ordered By: Fabiola Marinelli on 84-18-8291Elkolzfqdfg/100 WBC (Bld)4 %1-3FPremier HealthErythrocyte distribution width Auto (RBC) [Ratio]Ordered By: Fabiola Marinelli on 07-89-2836Eevqmcqykaq distribution width (RBC) [Ratio]14.6 %11.9-15.3 [facility] HospitalGlobulin Calc (S) [Mass/Vol]Ordered By: Fabiola Marinelli on 29-84-2198Dirpiser (S) [Mass/Vol]2.1 g/dLSalem City HospitalGlucose [Mass/volume] in Serum or PlasmaOrdered By: Fabiola Marinelli on 38-93-2792Lqdbqdm [Mass/Vol]113 mg/eH29-771JnxcbjmvqSalem City Hospital Comment on above:ADA recommended reference rangeRandom Glucose Reference Range is dependent on time and content of last meal. Glucose of more than 200 mg/dL in a nonstressed, ambulatory subject supports the diagnosisof Diabetes Mellitus. Hematocrit Auto (Bld) [Volume fraction]Ordered By: Fabiola Marinelli on 02-17-2023 Hematocrit (Bld) [Volume fraction]33.1 %34.0-46.4FPremier HealthHemoglobin [Mass/volume] in BloodOrdered By: Fabiola Marinelli on 02-17-2023 Hemoglobin (Bld) [Mass/Vol]11.3 g/dL11.8-15.4FPremier Health Leukocytes [#/volume] corrected for nucleated erythrocytes in Blood by Automated counOrdered By: Fabiola Marinelli on 11-51-0168OQY corrected for nucl RBC Auto (Bld) [#/Vol]1.7 10*3/uL3.8-11.6FPremier HealthLymphocytes Auto (Bld) [#/Vol]Ordered By: Fabiola Marinelli on 55-93-1421Sqcsskdzyqc (Bld) [#/Vol]N/A [facility] HospitalLymphocytes/100 WBC Auto (Bld)Ordered By: Fabiola Marinelli on 90-19-8138Rvuobqzpihu/100 WBC (Bld)N/AFPremier Health Lymphocytes/100 WBC Manual cnt (Bld)Ordered By: Fabiola Marinelli on 02-17-2023 Lymphocytes/100 WBC (Bld)20 %18-42[facility] HospitalMCH Auto (RBC) [Entitic mass]Ordered By: Fabiola Marinelli on 63-11-5599MQA (RBC) [Entitic mass] 33.5 pg24.7-34.3FPremier HealthMCHC Auto (RBC) [Mass/Vol] Ordered By: Fabiola Marinelli on 58-01-8204ZAFA (RBC) [Mass/Vol]34.1 g/dL32.0-35.0 [facility] HospitalMCV Auto (RBC) [Entitic vol]Ordered By: Fabiola Marinelli on 47-30-6143NSG (RBC) [Entitic vol]98.4 uJ04-134QpyyojdazSalem City HospitalMonocytes Auto (Bld) [#/Vol]Ordered By: Fabiola Marinelli on 02-17-2023 Monocytes (Bld) [#/Vol]N/[facility] CenterMonocytes/100 WBC Auto (Bld)Ordered By: Fabiola Marinelli on 81-68-9687Dgtbekwgq/100 WBC (Bld)N/[facility] CenterMonocytes/100 WBC Manual cnt (Bld)Ordered By: Fabiola Marinelli on 95-58-9113Mfqvrzmdr/100 WBC (Bld)4 %2-11[facility] Neutrophils Auto (Bld) [#/Vol]Ordered By: Fabiola Marinelli on 94-98-4704Hxfxnkgrjxf (Bld) [#/Vol]N/[facility] CenterNeutrophils/100 WBC Auto (Bld) Ordered By: Fabiola Marinelli on 66-21-1830Ixdixhqysqz/100 WBC (Bld)[facility] CenterNo Panel InformationOrdered By: Fabiola Marinelli on 02-17-2023 Estimated GFR (CKD-EPI)> 60.0 mL/MinSalem City HospitalPharmacy Creatinine Clearance (Chem70.06[facility] HospitalNucleated erythrocytes [Presence] in Blood by Automated countOrdered By: Fabiola Marinelli on 65-04-2919Vzfhdysam RBC Auto Ql (Bld)[facility] Ovalocyte detectionOrdered By: Fabiola Marinelli on 63-27-9311Thxypkshmz LM Ql (Bld) SlightSalem City HospitalPlatelet adequacy [Presence] in Blood by Light microscopyOrdered By: Fabiola Marinelli on 37-12-4996Ontmjfkih LM Ql (Bld) DecreasedNormalSalem City HospitalPlatelet mean volume Auto (Bld) [Entitic vol]Ordered By: Fabiola Marinelli on 71-75-6908Ucdcjqaw mean volume (Bld) [Entitic vol]7.9 fL6.3-10.7FPremier HealthPlatelet morphology finding [Identifier] in BloodOrdered By: Fabiola Marinelli on 71-58-5774Qisaqpqm morphology finding Nom (Bld)NormalNormalSalem City Hospital Platelets Auto (Bld) [#/Vol]Ordered By: Fabiola Marinelli on 50-05-4746Vspsgzlql (Bld) [#/Vol]35 10*3/iO736-534QjotifsamSalem City HospitalComment on above: Critical Result PLT:35 called to and read back by: [id number] on 02/17/2023 10:43:02 by:[id number].Poikilocytosis [Presence] in Blood by Light microscopy Ordered By: Fabiola Marinelli on 75-01-6827Ciajnwrhjxaoce LM Ql (Bld)[facility] CenterPolychromasia [Presence] in Blood by Light microscopy Ordered By: Fabiola Marinelli on 89-78-6450Hnsljzsgomupx LM Ql (Bld)[facility] CenterPotassium [Moles/volume] in Serum or PlasmaOrdered By: Fabiola Marinelli on 88-97-6463Bqlqpqzpy [Moles/Vol]3.7 mmol/L3.5-5.1FPremier HealthProtein [Mass/volume] in Serum or PlasmaOrdered By: Fabiola Marinelli on 82-43-4468Vojwfrz [Mass/Vol]5.7 g/dL6.4-8.9[facility] HospitalRBC Auto (Bld) [#/Vol]Ordered By: Fabiola Marinelli on 74-92-5635TKU (Bld) [#/Vol]3.36 10*6/uL3.60-5.00[facility] HospitalRB morphologyOrdered By: Fabiola Marinelli on 78-28-6219XMN morphology finding Nom (Bld)N/AFSouthview Medical Centeregmented neutrophils/100 WBC Manual cnt (Bld)Ordered By: Fabiola Marinelli on 29-24-0151Wwsjxqwko neutrophils/100 WBC (Bld)66 %50-70[facility] Health Instituteerum or plasma albumin/globulin mass ratioOrdered By: Fabiola Marinelli on 89-63-7162Hwglhfg/Globulin [Mass ratio]1.7 {ratio}[facility] Instituteerum or plasma anion gap determinationOrdered By: Fabiola Marinelli on 04-18-2023 Anion gap [Moles/Vol]8.8 mmol/L6.0-15.0[facility] Instituteodium [Moles/volume] in Serum or PlasmaOrdered By: Fabiola Marinelli on 79-90-3536Mlqctv [Moles/Vol]140 mmol/V463-419YchkfcvfySalem City HospitalUrea nitrogen [Mass/volume] in Serum or PlasmaOrdered By: Fabiola Marinelli on 18-91-1099Pyad nitrogen [Mass/Vol]13 mg/dL7-25[facility] HospitalWBC Auto (Bld) [#/Vol] Ordered By: Fabiola Marinelli on 17-39-1635ARW (Bld) [#/Vol]1.7 10*3/uL3.8-11.6FPremier HealthWBC other/100 WBC Manual cnt (Bld)Ordered By: Fabiola Marinelli on 08-18-4980QGO other/100 WBC (Bld)7 %[address] Comment on above:PLASMACYTOID LYMPHSWBC other/100 WBC (Bld)Leukocytes other/100 leukocytes in Blood by Manual countHigh00[facility] Anisocytosis LM Ql (Bld)Ordered By: Fabiola Marinelli on 01-43-1396Qzvzbcjcryjk Ql (Bld) [facility] CenterHypochromia LM Ql (Bld)Ordered By: Fabiola Marinelli on 11-80-7686Jnuzvyqnkyi Ql (Bld)[facility] Hypochromia Ql (Bld)Hypochromia [Presence] in Blood by Light microscopySalem City HospitalTeardrop cell detectionOrdered By: Fabiola Marinelli on 84-34-7529Jfhmakkhyg LM Ql (Bld)[facility] CenterBilirubin Test strip Ql (U)Ordered By: Ferny Levin on 21-68-7007Cxiespraj Ql (U) Bilirubin.total [Presence] in Urine by Test stripNegativeSalem City HospitalBilirubin Ql (U)NegativeNegativeSalem City Hospital Color Auto (U)Ordered By: Ferny Levin on 47-42-7830Ngbvk (U)YellowCommunity Regional Medical CenterColor (U)Color of Urine by AutoYellowSalem City HospitalKetones Auto test strip (U) [Mass/Vol]Ordered By: Ferny Levin on 32-39-7515Wlsvsqk (U) [Mass/Vol]NegativeNegTrumbull Memorial HospitalKetones (U) [Mass/Vol]Urine ketones measurement by automated test strip (mass/volume)[facility] CenterNitrite Test strip Ql (U)Ordered By: Ferny Levin on 10-29-1239Bkeemya Ql (U)Nitrite [Presence] in Urine by Test stripNegTrumbull Memorial Hospital Nitrite Ql (U)NegativeNegTrumbull Memorial HospitalProtein Auto test strip (U) [Mass/Vol]Ordered By: Ferny Levin on 17-19-6111Fiqzvkh (U) [Mass/Vol]NegativeNegTrumbull Memorial HospitalProtein (U) [Mass/Vol]Urine protein measurement by automated test strip (mass/volume) [facility] Hospitalpecific gravity Auto test strip (U) [Rel density]Ordered By: Ferny Levin on 17-15-9272Lwngihzc gravity (U) [Rel density]1.0051.001-1.030[facility] Health Institutepecific gravity (U) [Rel density]Specific gravity of Urine by Automated test strip1.001-1.030 [facility] HospitalUrine clarity by refractometry automatedOrdered By: Ferny Levin on 96-21-7438Igxzdce Refractometry automated (U)ClearClear [facility] HospitalClarity Refractometry automated (U)Urine clarity by refractometry automatedCleNewark HospitalUrine glucose measurement by automated test strip (mass/volume)Ordered By: Ferny Levin on 09-64-6902Lcfswxm Auto test strip (U) [Mass/Vol]Normal mg/dLNormal [facility] HospitalGlucose Auto test strip (U) [Mass/Vol]Urine glucose measurement by automated test strip (mass/volume)[facility] HospitalUrine hemoglobin detection by automated test stripOrdered By: Ferny Levin on 37-42-2909Znpiqdeauz Auto test strip Ql (U)Negative NegativeSalem City HospitalHemoglobin Auto test strip Ql (U)Urine hemoglobin detection by automated test stripNegativeSalem City HospitalUrine leukocyte esterase detection by automated test stripOrdered By: Ferny Levin on 54-60-1106Zaaflibup esterase Auto test strip Ql (U)Negative NegativeSalem City HospitalLeukocyte esterase Auto test strip Ql (U)Urine leukocyte esterase detection by automated test stripNegativeSalem City HospitalUrobilinogen Auto test strip (U) [Mass/Vol]Ordered By: Ferny Levin on 29-50-7869Uvchbhahfivl (U) [Mass/Vol]Normal mg/dLNormal [facility] HospitalUrobilinogen (U) [Mass/Vol]Urine urobilinogen measurement by automated test strip (mass/volume)NormalSalem City HospitalpH Auto test strip (U)Ordered By: Ferny Levin on 02-06-2023 pH (U)6.0 [pH]5.0-9.0[facility] HospitalpH (U)Urine pH measurement by automated test strip5.0-9.0[facility] Metamyelocytes/100 WBC Manual cnt (Bld)Ordered By: Fabiola Marinelli on 02-05-2023 Metamyelocytes/100 WBC (Bld)1 %[address] Metamyelocytes/100 WBC (Bld)Metamyelocytes/100 leukocytes in Blood by Manual countHigh00[facility] HospitalAnisocytosis LM Ql (Bld)Ordered By: Sherif Ravi on 10-32-4310Jjcuuplghqqz Ql (Bld)SlightSalem City HospitalBasophils Auto (Bld) [#/Vol]Ordered By: Sherif Ravi on 59-08-6705Ypjmfwdvp (Bld) [#/Vol]0.0 10*3/uL0.0-0.2FPremier HealthBasophils/100 WBC Auto (Bld)Ordered By: Sherif Ravi on 01-29-2023 Basophils/100 WBC (Bld)0.2 %.[facility] HospitalCalcium [Mass/volume] in Serum or PlasmaOrdered By: Sherif Ravi on 01-29-2023 Calcium [Mass/Vol]8.8 mg/dL8.6-10.3FPremier HealthCarbon dioxide, total [Moles/volume] in Serum or PlasmaOrdered By: Sherif Ravi on 40-16-2299UZ7 [Moles/Vol]31.2 mmol/L21.0-31.0[facility] HospitalChloride [Moles/volume] in Serum or PlasmaOrdered By: Sherif Ravi on 32-70-5444Tapokqcq [Moles/Vol]108 mmol/L34-625OfybdlwunSalem City HospitalCreatinine [Mass/volume] in Serum or PlasmaOrdered By: Sherif Ravi on 40-96-8981Pzrheefsmw [Mass/Vol]0.37 mg/dL0.60-1.20[facility] HospitalEosinophils Auto (Bld) [#/Vol]Ordered By: Sherif Ravi on 77-86-7859Qxqlldgvzqz (Bld) [#/Vol]0.1 10*3/uL0.0-0.45[facility] HospitalEosinophils/100 WBC Auto (Bld)Ordered By: Sherif Ravi on 97-60-8126Onwsffxqsud/100 WBC (Bld)3.9 %.[facility] HospitalErythrocyte distribution width Auto (RBC) [Ratio]Ordered By: Sherif Ravi on 32-93-9264Wwhpnnvhtfm distribution width (RBC) [Ratio]14.3 % 11.9-15.3FPremier HealthGlucose [Mass/volume] in Serum or PlasmaOrdered By: Sherif Ravi on 47-07-6036Ggtnxto [Mass/Vol]93 mg/dL 70-100[facility] HospitalComment on above:ADA recommended reference rangeRandom Glucose Reference Range is dependent on time and content of last meal. Glucose of more than 200 mg/dL in a nonstressed, ambulatory subject supports the diagnosisof Diabetes Mellitus.Hematocrit Auto (Bld) [Volume fraction]Ordered By: Sherif Ravi on 45-11-0957Chxzfejime (Bld) [Volume fraction]30.2 %34.0-46.4FPremier HealthHemoglobin [Mass/volume] in BloodOrdered By: Sherif Ravi on 91-96-5271Mspsmnzpct (Bld) [Mass/Vol]10.4 g/dL11.8-15.4FPremier HealthLeukocytes [#/volume] corrected for nucleated erythrocytes in Blood by Automated coun Ordered By: Sherif Ravi on 92-84-8196PRD corrected for nucl RBC Auto (Bld) [#/Vol]1.6 10*3/uL3.8-11.6FPremier HealthLymphocytes Auto (Bld) [#/Vol]Ordered By: Sherif aRvi on 86-90-2189Eaegrbdwcyu (Bld) [#/Vol]0.5 10*3/uL1.00-4.8[facility] HospitalLymphocytes/100 WBC Auto (Bld)Ordered By: Sherif Ravi on 57-22-5715Vidprzcjuxb/100 WBC (Bld)30.8 %.[facility] CenterH Auto (RBC) [Entitic mass] Ordered By: Sherif Ravi on 02-01-5037KJK (RBC) [Entitic mass]34.4 pg 24.7-34.3FPremier HealthMCHC Auto (RBC) [Mass/Vol]Ordered By: Sherif Ravi on 71-13-1825SAOY (RBC) [Mass/Vol]34.4 g/dL32.0-35.0 [facility] HospitalMCV Auto (RBC) [Entitic vol]Ordered By: Sherif Ravi on 35-24-4145FLV (RBC) [Entitic vol]100.0 pW09-051AzmkttmkoSalem City HospitalMonocytes Auto (Bld) [#/Vol]Ordered By: Sherif Ravi on 22-92-1749Ptokihcpf (Bld) [#/Vol]0.2 10*3/uL0.0-0.8[facility] HospitalMonocytes/100 WBC Auto (Bld)Ordered By: Sherif Ravi on 92-33-4282Rxvwvauya/100 WBC (Bld)11.4 %.[facility] HospitalNeutrophils Auto (Bld) [#/Vol]Ordered By: Sherif Ravi on 78-70-1068Jgtukpeakhi (Bld) [#/Vol]0.8 10*3/uL1.8-7.7FPremier HealthNeutrophils/100 WBC Auto (Bld)Ordered By: Sherif Ravi on 07-13-6741Wwedqjbnwei/100 WBC (Bld)53.7 %.[facility] HospitalNo Panel InformationOrdered By: Sherif Ravi on 94-39-2716Qjoawycql GFR (CKD-EPI)> 60.0 mL/MinSalem City HospitalPharmacy Creatinine Clearance (Chem70.[address] [place] [address]> 60.0 mL/MinSalem City Hospital70.[address] [place], [place] [address]Nucleated erythrocytes [Presence] in Blood by Automated countOrdered By: Sherif Ravi on 59-75-8368Vbswnfnkw RBC Auto Ql (Bld)0.5 /100{WBC}0-0.5FPremier HealthOvalocyte detectionOrdered By: Sherif Ravi on 54-61-2609Kxitnglpii LM Ql (Bld)SlightSalem City HospitalPlatelet adequacy [Presence] in Blood by Light microscopyOrdered By: Sherif Ravi on 35-32-1475Lyvhnfznu LM Ql (Bld)DecreasedNoOhioHealth Marion General HospitalPlatelet mean volume Auto (Bld) [Entitic vol]Ordered By: Sherif Ravi on 41-84-6834Bmetyyqt mean volume (Bld) [Entitic vol]7.9 fL6.3-10.7 [facility] HospitalPlatelet morphology finding [Identifier] in BloodOrdered By: Sherif Ravi on 82-03-0313Vtgudcjw morphology finding Nom (Bld)NormalNoOhioHealth Marion General HospitalPlatelets Auto (Bld) [#/Vol]Ordered By: Sherif Ravi on 57-34-6347Kyyrpmhgt (Bld) [#/Vol]25 10*3/uC195-579LyvmwtetxSalem City HospitalComment on above:Critical Result PLT:25 called to and read back by: KACY on 01/29/2023 07:12:39 by:[place]. Polychromasia [Presence] in Blood by Light microscopyOrdered By: Sherif Ravi on 98-43-9278Nmthqelyitcwm LM Ql (Bld)[facility] CenterPotassium [Moles/volume] in Serum or PlasmaOrdered By: Sherif Ravi on 49-20-6128Kallzvgde [Moles/Vol]3.3 mmol/L3.5-5.1FPremier HealthRBC Auto (Bld) [#/Vol]Ordered By: Sherif Ravi on 78-17-9598NDR (Bld) [#/Vol]3.02 10*6/uL3.60-5.00[facility] morphologyOrdered By: Sherif Ravi on 88-43-2821XTN morphology finding Nom (Bld)N/AFSouthview Medical Centererum or plasma anion gap determinationOrdered By: Sherif Ravi on 81-98-3329Imunu gap [Moles/Vol] 7.1 mmol/L6.0-15.0[facility] Health Instituteodium [Moles/volume] in Serum or PlasmaOrdered By: Sherif Ravi on 25-50-9741Avmwxn [Moles/Vol] 143 mmol/I091-530BmrpqciheSalem City HospitalTeardrop cell detectionOrdered By: Sherif Ravi on 95-76-9356Jzodrcyvpi LM Ql (Bld)[facility] CenterUrea nitrogen [Mass/volume] in Serum or PlasmaOrdered By: Sherif Ravi on 05-75-0205Qdku nitrogen [Mass/Vol]13 mg/dL7-25[facility] HospitalWBC Auto (Bld) [#/Vol]Ordered By: Sherif Ravi on 50-90-5506OYX (Bld) [#/Vol]1.6 10*3/uL3.8-11.6FPremier HealthAutomated erythrocytes count in urine sediment (number/area)Ordered By: Stefani Escobar on 53-50-7834VWC Auto (Urine sed) [#/Area]50-100 [HPF]0-4FPremier HealthAutomated leukocytes count in urine sediment (number/area)Ordered By: Stefani Escobar on 89-65-1498HVF Auto (Urine sed) [#/Area]Innumerable [HPF]0-4FPremier HealthBacteria identified Cx Nom (Bld)Ordered By: Sherif Ravi on 17-96-1812Ihvkcwcme blood cultureStaphylococcus sp [facility] HospitalBacteria identified Cx Nom (U)Ordered By: Stefani Escobar on 33-25-6553Fbzqd culture routineEscherichia coliSalem City HospitalBacterial blood culture Ordered By: Sherif Ravi on 19-76-4088Olspryrj identified Cx Nom (Bld)NO GROWTH 5 DAYSSalem City HospitalBacteria identified Cx Nom (Bld) Staphylococcus sp [facility] HospitalBasophils Auto (Bld) [#/Vol]Ordered By: Stefani Escobar on 06-03-0820Uzxsuuwdb (Bld) [#/Vol]0.0 10*3/uL 0.0-0.2FPremier HealthBasophils/100 WBC Auto (Bld)Ordered By: Stefani Escobar on 16-44-1694Rrkdotpko/100 WBC (Bld)0.1 %.Sal[facility] City HospitalBilirubin Test strip Ql (U)Ordered By: Stefani Escobar on 01-28-2023 Bilirubin Ql (U)NegativeNegativeSalem City HospitalCalcium [Mass/volume] in Serum or PlasmaOrdered By: Stefani Escobar on 80-63-4963Mhheaks [Mass/Vol]8.7 mg/dL8.6-10.3FPremier HealthCarbon dioxide, total [Moles/volume] in Serum or PlasmaOrdered By: Stefani Escobar on 01-28-2023 CO2 [Moles/Vol]28.8 mmol/L21.0-31.0[facility] HospitalChloride [Moles/volume] in Serum or PlasmaOrdered By: Stefani Escobar on 65-93-4608Vhdsdnni [Moles/Vol]105 mmol/B29-511BfaocbcfsSalem City HospitalColor Auto (U) Ordered By: Setfani Escobar on 04-64-2645Ssakj (U)Dark yellowYellowSalem City HospitalCreatinine [Mass/volume] in Serum or PlasmaOrdered By: Stefani Escobar on 47-03-6220Exwigzdyre [Mass/Vol]0.39 mg/dL0.60-1.20[facility] HospitalEosinophils Auto (Bld) [#/Vol]Ordered By: Stefani Escobar on 36-03-1972Kvxnhiqoscx (Bld) [#/Vol]0.1 10*3/uL0.0-0.45[facility] HospitalEosinophils/100 WBC Auto (Bld)Ordered By: Stefani Escobar on 42-86-3904Lqmjvhkrwpi/100 WBC (Bld)2.4 %.[facility] Erythrocyte distribution width Auto (RBC) [Ratio]Ordered By: Stefani Escobar on 45-99-9965Hryjevffhxc distribution width (RBC) [Ratio]14.7 %11.9-15.3FPremier HealthGlucose [Mass/volume] in Serum or PlasmaOrdered By: Stefani Escobar on 96-96-7870Iesvfwi [Mass/Vol]105 mg/vH24-393SmisswkuaSalem City HospitalComment on above:ADA recommended reference rangeRandom Glucose Reference Range is dependent on time and content of last meal. Glucose of more than 200 mg/dL in a nonstressed, ambulatory subject supports the diagnosisof Diabetes Mellitus.Hematocrit Auto (Bld) [Volume fraction]Ordered By: Stefani Escobar on 57-08-7410Szcoapvtgr (Bld) [Volume fraction]32.2 %34.0-46.4FPremier HealthHemoglobin [Mass/volume] in BloodOrdered By: Stefani Escobar on 89-79-6901Ykuoksgvtf (Bld) [Mass/Vol]11.1 g/dL11.8-15.4FPremier HealthKetones Auto test strip (U) [Mass/Vol]Ordered By: Stefani Escobar on 93-76-5614Aqmbmmu (U) [Mass/Vol]TraceNegativeSalem City HospitalLaboratory - Chemistry and Chemistry - challengeOrdered By: Stefani Escobar on 35-24-1057FKK/1.73 sq M.predicted MDRD (S/P/Bld) [Vol rate/Area] mL/min/{1.73_m2}[facility] HospitalLaboratory - UrinalysisOrdered By: Stefani Escobar on 33-09-9403Xapxqpz casts LM Ql (Urine sed)0-8 [LPF]0-8 [facility] HospitalLeukocytes [#/volume] corrected for nucleated erythrocytes in Blood by Automated counOrdered By: Stefani Escobar on 01-28-2023 WBC corrected for nucl RBC Auto (Bld) [#/Vol]3.0 10*3/uL3.8-11.6FPremier HealthLymphocytes Auto (Bld) [#/Vol]Ordered By: Stefani Escobar on 88-91-5086Xakrlefyiqq (Bld) [#/Vol]0.6 10*3/uL1.00-4.8[facility] HospitalLymphocytes/100 WBC Auto (Bld)Ordered By: Stefani Escobar on 16-04-8014Inwfkigxrpl/100 WBC (Bld)20.4 %.[facility] Auto (RBC) [Entitic mass]Ordered By: Stefani Escobar on 16-66-7499RCE (RBC) [Entitic mass]34.2 pg24.7-34.3FSumma Health Wadsworth - Rittman Medical CenterHC Auto (RBC) [Mass/Vol]Ordered By: Stefani Escobar on 59-52-9801QUKP (RBC) [Mass/Vol]34.3 g/dL 32.0-35.0[facility] CenterV Auto (RBC) [Entitic vol]Ordered By: Stefani Escobar on 89-45-8713KNN (RBC) [Entitic vol]99.5 aP79-172OuiqagtiiSalem City HospitalMonocyte distribution width [Entitic volume] in Blood by AutomatedOrdered By: Stefani Escobar on 39-59-9497Sxyhjklf distribution width Auto (Bld) [Entitic vol]19.52 %0.00-20.00[facility] HospitalMonocytes Auto (Bld) [#/Vol]Ordered By: Stefani Escobar on 57-70-7847Viboxcces (Bld) [#/Vol] 0.4 10*3/uL0.0-0.8[facility] HospitalMonocytes/100 WBC Auto (Bld) Ordered By: Stefani Escobar on 68-59-9049Ybnuwdbvq/100 WBC (Bld)12.3 %.[facility] HospitalNeutrophils Auto (Bld) [#/Vol]Ordered By: Stefani Escobar on 73-32-3952Ynhvkwyacoq (Bld) [#/Vol]1.9 10*3/uL1.8-7.7FPremier HealthNeutrophils/100 WBC Auto (Bld)Ordered By: Stefani Escobar on 57-89-0932Wcmdbpuxtfb/100 WBC (Bld)64.8 %.[facility] Nitrite Test strip Ql (U)Ordered By: Stefani Escobar on 29-99-7332Zzbfskx Ql (U) NegativeNegativeSalem City HospitalNo Panel InformationOrdered By: Sherif Ravi on 18-65-6671Ybmknsqae ID (NA Multiplex Assay)[facility] HospitalNo Panel InformationOrdered By: Stefani Escobar on 27-10-3835Tmojvrlb Creatinine Clearance (Chem69.42[facility]0-8 [LPF]0-8[facility] HospitalNucleated erythrocytes [Presence] in Blood by Automated countOrdered By: Stefani Escobar on 01-28-2023 Nucleated RBC Auto Ql (Bld)0.4 /100{WBC}0-0.5FPremier Health Ovalocyte detectionOrdered By: Stefani Escobar on 67-28-3927Welkygjcrh LM Ql (Bld) ModerateSalem City HospitalPlatelet adequacy [Presence] in Blood by Light microscopyOrdered By: Stefani Escobar on 46-96-9604Fiwosydzl LM Ql (Bld) DecreasedNormalSalem City HospitalPlatelet mean volume Auto (Bld) [Entitic vol]Ordered By: Stefani Escobar on 68-58-0080Hecbgwdd mean volume (Bld) [Entitic vol]9.3 fL6.3-10.7FPremier HealthPlatelet morphology finding [Identifier] in BloodOrdered By: Stefani Escobar on 21-21-3320Eobsoewi morphology finding Nom (Bld)NormalNormalSalem City Hospital Platelets Auto (Bld) [#/Vol]Ordered By: Stefani Escobar on 20-91-9965Efrvwpkou (Bld) [#/Vol]35 10*3/iU177-610ExeuasshkSalem City HospitalComment on above: Critical Result PLT:35 called to and read back by: MADHU on 01/28/2023 01:29:15 by:CARMEN.Poikilocytosis [Presence] in Blood by Light microscopyOrdered By: Stefani Escobar on 66-50-9248Vkxgaoghucrqvq LM Ql (Bld)ModerateSalem City HospitalPotassium [Moles/volume] in Serum or PlasmaOrdered By: Stefani Escobar on 10-09-3261Oqfpuycrn [Moles/Vol]3.4 mmol/L3.5-5.1FPremier HealthProtein Auto test strip (U) [Mass/Vol]Ordered By: Stefani Escobar on 76-37-8750Ylormob (U) [Mass/Vol]mg/dLNegativeSalem City Hospital RBC Auto (Bld) [#/Vol]Ordered By: Stefani Escobar on 59-98-8018ZUW (Bld) [#/Vol] 3.24 10*6/uL3.60-5.00[facility] HospitalRBC morphologyOrdered By: Stefani Escobar on 04-04-2312ZBD morphology finding Nom (Bld)N/AFSouthview Medical Centererum or plasma anion gap determinationOrdered By: Stefani Escobar on 12-87-2825Znuxj gap [Moles/Vol]8.6 mmol/L6.0-15.0[facility] Health Instituteodium [Moles/volume] in Serum or PlasmaOrdered By: Stefani Escobar on 94-83-9373Ocejff [Moles/Vol]139 mmol/K465-702DiodjzszpSalem City Hospital Specific gravity Auto test strip (U) [Rel density]Ordered By: Stefani Escobar on 34-96-2767Srlhkqdj gravity (U) [Rel density]1.0231.001-1.030R[facility]view Health Institutequamous epithelial cells detection in urine sediment by light microscopyOrdered By: Stefani Escobar on 11-81-7757Nyqpqocsfk cells.squamous LM Ql (Urine sed)3-4 [HPF]0-2FPremier HealthTeardrop cell detection Ordered By: Stefani Escobar on 24-38-1603Gmrxwzualy LM Ql (Bld)SlightSalem City HospitalUrea nitrogen [Mass/volume] in Serum or PlasmaOrdered By: Stefani Escobar on 02-78-9298Rtxh nitrogen [Mass/Vol]12 mg/dL7-25[facility] HospitalUrine bacteria detection by automated methodOrdered By: Stefani Escobar on 15-33-0561Liemsxdk Auto Ql (U)3+None SeenSalem City HospitalUrine clarity by refractometry automatedOrdered By: Stefani Escobar on 83-67-1937Qouooxj Refractometry automated (U)TurbidCleNewark HospitalUrine culture routineOrdered By: Stefani Escobar on 01-28-2023 Bacteria identified Cx Nom (U)Escherichia coliSalem City Hospital Urine glucose measurement by automated test strip (mass/volume)Ordered By: Stefani Escobar on 99-75-8446Fwiwzch Auto test strip (U) [Mass/Vol]Normal mg/dL NormalSalem City HospitalUrine hemoglobin detection by automated test stripOrdered By: Stefani Escobar on 07-01-9971Deetnrimaf Auto test strip Ql (U)3+NegativeSalem City HospitalUrine leukocyte esterase detection by automated test stripOrdered By: Stefani Escobar on 86-89-1312Msxpyowsm esterase Auto test strip Ql (U)3+NegativeSalem City HospitalUrine sediment crystal identification by light microscopyOrdered By: Stefani Escobar on 28-33-0202Aimbzhik LM Nom (Urine sed)None seen [HPF][facility] HospitalUrobilinogen Auto test strip (U) [Mass/Vol]Ordered By: Stefani Escobar on 68-92-0748Udddwuoqmqlu (U) [Mass/Vol]Normal mg/dLNormalSalem City HospitalWBC Auto (Bld) [#/Vol]Ordered By: Stefani Escobar on 08-84-0506VED (Bld) [#/Vol]3.0 10*3/uL3.8-11.6FPremier HealthpH Auto test strip (U)Ordered By: Stefani Escobar on 54-83-5769dI (U)5.5 [pH]5.0-9.0[facility] HospitalAlanine aminotransferase [Enzymatic activity/volume] in Serum or PlasmaOrdered By: Fabiola Marinelli on 19-78-8047EUU [Catalytic activity/Vol]19 U/L7-52[facility] HospitalAlbumin [Mass/volume] in Serum or Plasma by Bromocresol green (BCG) dye binding methoOrdered By: Fabiola Marinelli on 01-22-2023 Albumin BCG dye [Mass/Vol]3.5 g/dL3.5-5.7FPremier Health Alkaline phosphatase [Enzymatic activity/volume] in Serum or PlasmaOrdered By: Fabiola Marinelli on 92-58-5772PAB [Catalytic activity/Vol]101 U/Z94-737JxjjepypsSalem City HospitalAnisocytosis LM Ql (Bld)Ordered By: Fabiola Marinelli on 39-62-8678Eqeuappywazb Ql (Bld)SlightSalem City HospitalAspartate aminotransferase [Enzymatic activity/volume] in Serum or PlasmaOrdered By: Fabiola Marinelli on 43-90-7587UQF [Catalytic activity/Vol]24 U/U16-05VljffyhfvSalem City HospitalBasophils Auto (Bld) [#/Vol]Ordered By: Fabiola Marinelli on 01-22-2023 Basophils (Bld) [#/Vol]0.0 10*3/uL0.0-0.2FPremier Health Basophils/100 WBC Auto (Bld)Ordered By: Fabiola Marinelli on 74-46-1946Sqotqssbw/100 WBC (Bld)0.1 %.[facility] HospitalBilirubin.total [Mass/volume] in Serum or PlasmaOrdered By: Fabiola Marinelli on 83-32-2740Woizrxwan [Mass/Vol]1.2 mg/dL 0.3-1.0[facility] HospitalCalcium [Mass/volume] in Serum or Plasma Ordered By: Fabiola Marinelli on 28-92-4743Krtyjoo [Mass/Vol]8.7 mg/dL8.6-10.3FPremier HealthCarbon dioxide, total [Moles/volume] in Serum or Plasma Ordered By: Fabiola Marinelli on 76-99-6271VS4 [Moles/Vol]29.9 mmol/L21.0-31.0[facility] HospitalChloride [Moles/volume] in Serum or PlasmaOrdered By: Fabiola Marinelli on 38-28-6027Kwsvdtar [Moles/Vol]106 mmol/T32-281HcxsssdtcSalem City HospitalCreatinine [Mass/volume] in Serum or PlasmaOrdered By: Fabiola Marinelli on 42-16-6793Wihrvsrsdg [Mass/Vol]0.42 mg/dL0.60-1.20[facility] HospitalEosinophils Auto (Bld) [#/Vol]Ordered By: Fabiola Marinelli on 01-22-2023 Eosinophils (Bld) [#/Vol]0.1 10*3/uL0.0-0.45[facility] Eosinophils/100 WBC Auto (Bld)Ordered By: Fabiola Marinelli on 63-05-2284Vwhhkclachh/100 WBC (Bld)3.6 %.[facility] HospitalErythrocyte distribution width Auto (RBC) [Ratio]Ordered By: Fabiola Marinelli on 32-36-1448Ydfsmrorwls distribution width (RBC) [Ratio]15.4 %11.9-15.3FPremier HealthGlobulin Calc (S) [Mass/Vol]Ordered By: Fabiola Marinelli on 95-49-3842Uosgzxta (S) [Mass/Vol]1.6 g/dLSalem City HospitalGlucose [Mass/volume] in Serum or Plasma Ordered By: Fabiola Marinelli on 22-14-6952Qejwnxm [Mass/Vol]149 mg/eB27-567WcnpswealSalem City HospitalComment on above:ADA recommended reference rangeRandom Glucose Reference Range is dependent on time and content of last meal. Glucose of more than 200 mg/dL in a nonstressed, ambulatory subject supports the diagnosisof Diabetes Mellitus.Hematocrit Auto (Bld) [Volume fraction]Ordered By: Fabiola Marinelli on 21-70-5752Cdeflwdwma (Bld) [Volume fraction]31.9 %34.0-46.4 [facility] HospitalHemoglobin [Mass/volume] in BloodOrdered By: Fabiola Marinelli on 88-29-7514Agehfqsthd (Bld) [Mass/Vol]10.8 g/dL11.8-15.4FPremier HealthLaboratory - Chemistry and Chemistry - challengeOrdered By: Fabiola Marinelli on 39-60-7853TGX/1.73 sq M.predicted MDRD (S/P/Bld) [Vol rate/Area]mL/min/{1.73_m2}[facility] HospitalLeukocytes [#/volume] corrected for nucleated erythrocytes in Blood by Automated counOrdered By: Fabiola Marinelli on 18-36-2830HOX corrected for nucl RBC Auto (Bld) [#/Vol]1.8 10*3/uL 3.8-11.6FPremier HealthLymphocytes Auto (Bld) [#/Vol]Ordered By: Fabiola Marinelli on 20-51-4595Lmznyjkxais (Bld) [#/Vol]0.4 10*3/uL1.00-4.8[facility] HospitalLymphocytes/100 WBC Auto (Bld)Ordered By: Fabiola Marinelli on 36-67-7856Lscknubhrte/100 WBC (Bld)24.6 %.[facility] CenterH Auto (RBC) [Entitic mass]Ordered By: Fabiola Marinelli on 33-93-7813SNN (RBC) [Entitic mass]34.2 pg24.7-34.3FPremier HealthMCHC Auto (RBC) [Mass/Vol] Ordered By: Fabiola Marinelli on 36-47-9675NOTZ (RBC) [Mass/Vol]33.8 g/dL32.0-35.0 [facility] HospitalMCV Auto (RBC) [Entitic vol]Ordered By: Fabiola Marinelli on 45-97-4404BHB (RBC) [Entitic vol]101.2 tS91-322NmlovxgjsSalem City HospitalMacrocytes LM Ql (Bld)Ordered By: Fabiola Marinelli on 01-22-2023 Macrocytes Ql (Bld)SlightSalem City HospitalMacrocytes Ql (Bld) Macrocytes [Presence] in Blood by Light microscopySalem City HospitalMonocytes Auto (Bld) [#/Vol]Ordered By: Fabiola Marinelli on 82-60-6686Zxawtdtau (Bld) [#/Vol]0.2 10*3/uL0.0-0.8[facility] HospitalMonocytes/100 WBC Auto (Bld)Ordered By: Fabiola Marinelli on 25-81-1851Qxxtmutrg/100 WBC (Bld)12.3 %. [facility] HospitalNeutrophils Auto (Bld) [#/Vol]Ordered By: Fabiola Marinelli on 83-12-5175Qnbzselcjja (Bld) [#/Vol]1.1 10*3/uL1.8-7.7FPremier HealthNeutrophils/100 WBC Auto (Bld)Ordered By: Fabiola Marinelli on 01-22-2023 Neutrophils/100 WBC (Bld)59.4 %.[facility] HospitalNo Panel InformationOrdered By: Fabiola Marinelli on 53-81-8410Rrujedko Creatinine Clearance (Chem70.99[facility] HospitalNucleated erythrocytes [Presence] in Blood by Automated countOrdered By: Fabiola Marinelli on 35-93-8803Tzcvjtppt RBC Auto Ql (Bld)0.1 /100{WBC}0-0.5FPremier HealthOvalocyte detection Ordered By: Fabiola Marinelli on 84-61-7510Ifsmyruqsd LM Ql (Bld)SlightSalem City HospitalPlatelet adequacy [Presence] in Blood by Light microscopy Ordered By: Fabiola Marinelli on 93-04-5701Qelecjcgi LM Ql (Bld)DecreasedNormalSalem City HospitalPlatelet mean volume Auto (Bld) [Entitic vol]Ordered By: Fabiola Marinelli on 20-83-5139Tcfvgiws mean volume (Bld) [Entitic vol]8.5 fL6.3-10.7 [facility] HospitalPlatelet morphology finding [Identifier] in BloodOrdered By: Fabiola Marinelli on 86-59-5650Lriwgjck morphology finding Nom (Bld)N/A [facility] HospitalPlatelets Auto (Bld) [#/Vol]Ordered By: Fabiola Marinelli on 56-34-4385Hiqzwuwpw (Bld) [#/Vol]31 10*3/yA014-569TyjhoqydnSalem City HospitalComment on above:Critical Result PLT:31 called to and read back by: [id number] on 01/22/2023 11:37:11 by:[id number].Platelets Large [Presence] in Blood by Light microscopyOrdered By: Fabiola Marinelli on 50-03-3113Enbexhslo Large LM Ql (Bld)[facility] Medical CenterPoikilocytosis [Presence] in Blood by Light microscopyOrdered By: Fabiola Marinelli on 15-08-5587Aemifjzvkzfzrt LM Ql (Bld)[facility] CenterPotassium [Moles/volume] in Serum or PlasmaOrdered By: Fabiola Marinelli on 26-68-8669Alhcylrbu [Moles/Vol]3.7 mmol/L 3.5-5.1FPremier HealthProtein [Mass/volume] in Serum or Plasma Ordered By: Fabiola Marinelli on 48-85-0209Zsbyfou [Mass/Vol]5.1 g/dL6.4-8.9[facility] HospitalRB Auto (Bld) [#/Vol]Ordered By: Fabiola Marinelli on 01-22-2023 RBC (Bld) [#/Vol]3.16 10*6/uL3.60-5.00[facility] morphologyOrdered By: Fabiola Marinelli on 24-63-6309KJE morphology finding Nom (Bld)N/A [facility] Instituteerum or plasma albumin/globulin mass ratio Ordered By: Fabiola Marinelli on 54-91-1589Firehqm/Globulin [Mass ratio]2.2 {ratio} [facility] Instituteerum or plasma anion gap determinationOrdered By: Fabiola Marinelli on 03-25-0086Cbyid gap [Moles/Vol]8.8 mmol/L6.0-15.0[facility] Instituteodium [Moles/volume] in Serum or PlasmaOrdered By: Fabiola Marinelli on 53-41-0384Tljxwg [Moles/Vol]141 mmol/O220-304TkrvdvmlwSalem City HospitalTeardrop cell detectionOrdered By: Fabiola Marinelli on 92-00-6841Psyibqjcik LM Ql (Bld)[facility] Medical CenterUrea nitrogen [Mass/volume] in Serum or PlasmaOrdered By: Fabiola Marinelli on 44-21-5454Zriv nitrogen [Mass/Vol]13 mg/dL7-25[facility] HospitalWBC Auto (Bld) [#/Vol]Ordered By: Fabiola Marinelli on 22-72-4404BVB (Bld) [#/Vol]1.8 10*3/uL3.8-11.6FPremier HealthAlanine aminotransferase [Enzymatic activity/volume] in Serum or PlasmaOrdered By: Fabiola Marinelli on 69-16-7241UYR [Catalytic activity/Vol]23 U/L7-52 [facility] HospitalAlbumin [Mass/volume] in Serum or Plasma by Bromocresol green (BCG) dye binding methoOrdered By: Fabiola Marinelli on 01-08-2023 Albumin BCG dye [Mass/Vol]3.5 g/dL3.5-5.7FPremier Health Alkaline phosphatase [Enzymatic activity/volume] in Serum or PlasmaOrdered By: Fabiola Marinelli on 08-86-8774OCA [Catalytic activity/Vol]92 U/C64-273EjuhxzrmoSalem City HospitalAnisocytosis LM Ql (Bld)Ordered By: Fabiola Marinelli on 33-91-7199Igjnuryhtrmk Ql (Bld)SlightSalem City HospitalAspartate aminotransferase [Enzymatic activity/volume] in Serum or PlasmaOrdered By: Fabiola Marinelli on 35-55-4597MEJ [Catalytic activity/Vol]30 U/N28-81HvgxqgdaqSalem City HospitalBasophils Auto (Bld) [#/Vol]Ordered By: Fabiola Marinelli on 01-08-2023 Basophils (Bld) [#/Vol]0.0 10*3/uL0.0-0.2FPremier Health Basophils/100 WBC Auto (Bld)Ordered By: Fabiola Marinelli on 06-32-6919Xddazncdh/100 WBC (Bld)0.2 %.[facility] HospitalBilirubin.total [Mass/volume] in Serum or PlasmaOrdered By: Fabiola Marinelli on 59-37-3438Tzibckqex [Mass/Vol]0.9 mg/dL 0.3-1.0[facility] HospitalCalcium [Mass/volume] in Serum or Plasma Ordered By: Fabiola Marinelli on 57-44-8064Mizdyft [Mass/Vol]9.2 mg/dL8.6-10.3FPremier HealthCarbon dioxide, total [Moles/volume] in Serum or Plasma Ordered By: Fabiola Marinelli on 69-44-6615QE5 [Moles/Vol]29.9 mmol/L21.0-31.0[facility] HospitalChloride [Moles/volume] in Serum or PlasmaOrdered By: Fabiola Marinelli on 89-24-0491Zcksgmim [Moles/Vol]106 mmol/W29-293XxuagaqwlSalem City HospitalCreatinine [Mass/volume] in Serum or PlasmaOrdered By: Fabiola Marinelli on 68-51-8168Cwagamwmfd [Mass/Vol]0.44 mg/dL0.60-1.20[facility] HospitalEosinophils Auto (Bld) [#/Vol]Ordered By: Fabiola Marinelli on 01-08-2023 Eosinophils (Bld) [#/Vol]0.1 10*3/uL0.0-0.45[facility] Eosinophils/100 WBC Auto (Bld)Ordered By: Fabiola Marinelli on 69-43-9737Cscunpeitvp/100 WBC (Bld)3.6 %.[facility] HospitalErythrocyte distribution width Auto (RBC) [Ratio]Ordered By: Fabiola Marinelli on 29-85-1533Rqgddwvuhst distribution width (RBC) [Ratio]15.8 %11.9-15.3FPremier HealthGlobulin Calc (S) [Mass/Vol]Ordered By: Fabiola Marinelli on 12-73-7927Qfpiehna (S) [Mass/Vol]1.7 g/dLSalem City HospitalGlucose [Mass/volume] in Serum or Plasma Ordered By: Fabiola Marinelli on 52-83-8472Rulfcpy [Mass/Vol]114 mg/tB52-666JhoerhfrhSalem City HospitalHematocrit Auto (Bld) [Volume fraction]Ordered By: Fabiola Marinelli on 52-45-0077Gwdltxvixs (Bld) [Volume fraction]30.8 %34.0-46.4FPremier HealthHemoglobin [Mass/volume] in BloodOrdered By: Fabiola Marinelli on 02-02-0725Scrpxfyyua (Bld) [Mass/Vol]10.7 g/dL11.8-15.4FPremier HealthIFE PATH REVIEWon 43-56-6982HHUN REVIEW-IFMILAGRO.KINFederal Correction Institution HospitalComment on above:Result Comment: By her/his signature above, the Pathologist listed as making the final interpretation certifies that she/he has personally reviewed this case. Performed By: #### PR34 #### [facility] [address] [place], [place] [address]Iybbxpqldd [#/volume] corrected for nucleated erythrocytes in Blood by Automated counOrdered By: Fabiola Marinelli on 59-15-3107NUR corrected for nucl RBC Auto (Bld) [#/Vol]1.7 10*3/uL3.8-11.6FPremier Health Lymphocytes Auto (Bld) [#/Vol]Ordered By: Fabiola Marinelli on 29-81-9793Bjxrzhthhph (Bld) [#/Vol]0.5 10*3/uL1.00-4.8[facility] HospitalLymphocytes/100 WBC Auto (Bld)Ordered By: Fabiola Marinelli on 45-25-0409Dsfrigcytrb/100 WBC (Bld)29.7 %.[facility] CenterH Auto (RBC) [Entitic mass]Ordered By: Fabiola Marinelli on 39-78-9374OSU (RBC) [Entitic mass]35.0 pg24.7-34.3FPremier HealthMCHC Auto (RBC) [Mass/Vol]Ordered By: Fabiola Marinelli on 93-47-3524JNFN (RBC) [Mass/Vol]34.7 g/dL32.0-35.0[facility] HospitalMCV Auto (RBC) [Entitic vol]Ordered By: Fabiola Marinelli on 82-37-2024AXJ (RBC) [Entitic vol] 100.8 kB12-760HjhspfibqSalem City HospitalMacrocytes LM Ql (Bld)Ordered By: Fabiola Marinelli on 95-05-5218Oezdumdayi Ql (Bld)[facility] CenterMonocytes Auto (Bld) [#/Vol]Ordered By: Fabiola Marinelli on 66-31-3832Gvgvqqgue (Bld) [#/Vol]0.2 10*3/uL0.0-0.8[facility] HospitalMonocytes/100 WBC Auto (Bld)Ordered By: Fabiola Marinelli on 08-93-3958Imnqjxbti/100 WBC (Bld)14.0 %. [facility] HospitalNeutrophils Auto (Bld) [#/Vol]Ordered By: Fabiola Marinelli on 86-43-5047Moxvheskqej (Bld) [#/Vol]0.9 10*3/uL1.8-7.7FPremier HealthNeutrophils/100 WBC Auto (Bld)Ordered By: Fabiola Marinelli on 01-08-2023 Neutrophils/100 WBC (Bld)52.5 %.[facility] HospitalNo Panel InformationOrdered By: Fabiola Marinelli on 01-08-2023> 60.0[facility]70.94[facility] HospitalNucleated erythrocytes [Presence] in Blood by Automated countOrdered By: Fabiola Marinelli on 45-56-6857Mxivpmwtb RBC Auto Ql (Bld)0.1 /100{WBC}0-0.5FPremier HealthOvalocyte detection Ordered By: Fabiola Marinelli on 09-42-5502Bsfgcfegfv LM Ql (Bld)[facility] Medical CenterPROTEIN ELECTROPHORESIS + IMMUNOFIXATION, SERUMon 88-00-1838XRDFZMPBVSCDMU INTERPNORMALNoMt. San Rafael HospitalComment on above:Result Comment: No monoclonal proteins detected by immunofixation. The monoclonal IgG kappa at 0.1 g/dL detected on 11/21/21 is no longer discerned.Performed By: #### IFE3 #### [facility] [address] [place], [place] [address]NUYGZUQSYAVFATMTOWIZWRSvobzbCG [facility] Comment on above:Result Comment: Decrease in polyclonal gamma globulins. Performed By: #### IFE3 #### [facility] [address] [place], [place] [address]Oftnuksp adequacy [Presence] in Blood by Light microscopy Ordered By: Fabiola Marinelli on 62-61-7521Vzmzipaix LM Ql (Bld)DecreasedNormCherrington HospitalPlatelet mean volume Auto (Bld) [Entitic vol]Ordered By: Fabiola Marinelli on 74-53-5378Pdghbsbv mean volume (Bld) [Entitic vol]10.4 fL6.3-10.7 [facility] HospitalPlatelet morphology finding [Identifier] in BloodOrdered By: Fabiola Marinelli on 01-39-1687Voexqrvy morphology finding Nom (Bld) NormalNormCherrington HospitalPlatelets Auto (Bld) [#/Vol]Ordered By: Fabiola Marinelli on 95-74-5936Pfihezfie (Bld) [#/Vol]68 10*3/rY389-530XqcggbdmzSalem City HospitalPotassium [Moles/volume] in Serum or PlasmaOrdered By: Fabiola Marinelli on 10-10-6739Ykhlocrvh [Moles/Vol]4.1 mmol/L3.5-5.1FPremier HealthProtein [Mass/volume] in Serum or PlasmaOrdered By: Fabiola Marinelli on 36-72-4966Kdqzwlg [Mass/Vol]5.2 g/dL6.4-8.9Salem City HospitalRB Auto (Bld) [#/Vol]Ordered By: Fabiola Marinelli on 63-21-6008UBG (Bld) [#/Vol]3.06 10*6/uL3.60-5.00[facility] morphologyOrdered By: Fabiola Marinelli on 36-39-2798PLX morphology finding Nom (Bld)N/AFSouthview Medical CenterPE PATH REVIEWon 89-70-1979SKEB REVIEW-LITTLEFederal Correction Institution HospitalComment on above:Result Comment: By her/his signature above, the Pathologist listed as making the final interpretation certifies that she/he has personally reviewed this case. Performed By: #### CMP #### [facility] [address] [place], [place] [address]Iqqcg or plasma albumin/globulin mass ratioOrdered By: Fabiola Marinelli on 14-92-8003Xsriunc/Globulin [Mass ratio]2.1 {ratio}[facility]iverview Health Instituteerum or plasma anion gap determinationOrdered By: Fabiola Marinelli on 28-96-8652Xtvfq gap [Moles/Vol]8.2 mmol/L6.0-15.0R[facility]view Health Instituteodium [Moles/volume] in Serum or PlasmaOrdered By: Fabiola Marinelli on 49-96-3434Mmrfub [Moles/Vol]140 mmol/C803-842VfkzfispuSalem City Hospital Teardrop cell detectionOrdered By: Fabiola Marinelli on 99-32-3677Gflsmyeubm LM Ql (Bld) SlightSalem City HospitalUrea nitrogen [Mass/volume] in Serum or PlasmaOrdered By: Fabiola Marinelli on 47-39-4998Wgnb nitrogen [Mass/Vol]13 mg/dL7-25 [facility] City HospitalWBC Auto (Bld) [#/Vol]Ordered By: Fabiola Marinelli on 77-54-3026TCF (Bld) [#/Vol]1.7 10*3/uL3.8-11.6FPremier Health IMMUNOGLOBULINS (G,A,M)on 76-55-3839FxF [Mass/Vol]21 mg/dLLow70 - 400UH [facility]unnells Specialized HospitalComment on above:Result Comment: MONOCLONAL PROTEINS MAY CAUSE FALSELY LOW RESULTS IN THIS ASSAY. SERUM PROTEIN ELECTROPHORESIS SHOULD BE DONE THE FIRST TEST TO EVALUATE MONOCLONAL GAMMOPATHY.Performed By: #### IGS #### [facility] [address] [place], [place] [address]GsA [Mass/Vol]10 mg/dLLow40 - 230[facility] Comment on above:Result Comment: MONOCLONAL PROTEINS MAY CAUSE FALSELY LOW RESULTS IN THIS ASSAY. SERUM PROTEIN ELECTROPHORESIS SHOULD BE DONE THE FIRST TEST TO EVALUATE MONOCLONAL GAMMOPATHY.Performed By: #### IGS #### [facility] [address] [place], [place] [address]MjD [Mass/Vol]360 mg/iUKfv713 - 1600[facility] at DenvilleComment on above:Result Comment: MONOCLONAL PROTEINS MAY CAUSE FALSELY LOW RESULTS IN THIS ASSAY. SERUM PROTEIN ELECTROPHORESIS SHOULD BE DONE THE FIRST TEST TO EVALUATE MONOCLONAL GAMMOPATHY.Performed By: #### IGS #### [facility] [address] [place], [place] [address]QJXIB/LAMBDA FREE LIGHT CHAIN,Son [id number] KAPPA LIGHT CHAINS,S0.55 mg/dLNormal0.33 - 1.94[facility] at DenvilleComment on above: Performed By: #### KALAS #### [facility] [address] [place], [place] [address]JLWW KAPPA/LAMBDA RATIO,S0.10Low0.26 - 1.65[facility] at DenvilleComment on above:Result Comment: Undetected antigen excess is a rare event but cannot be excluded. If these free light chain results do not agree with other clinical or laboratory findings, or if the sample is from a patient that has previously demonstrated antigen excess, the result must be checked by retesting at a higher sample dilution. Results should always be interpreted in conjunction with other laboratory tests and clinical evidence; any anomalies should be discussed with the testing laboratory.Performed By: #### KALAS #### [facility] [address] [place], [place] [address]GKNZ LAMBDA LIGHT CHAIN,S5.65 mg/dLHigh0.57 - 2.63[facility] at DenvilleComment on above:Performed By: #### KALAS #### [facility] [address] [place], [place] [address]BIARQUG ELECTROPHORESIS + IMMUNOFIXATION, SERUMon 01-02-2023 Albumin [Mass/Vol]3.5 g/dLNormal3.4 - 5.0[facility] DenvilleComment on above:Performed By: #### IFE3 #### [facility] [address] [place], [place] [address]BVDHW 1 GLOBULIN0.3 g/dLNormal0.2 - 0.6[facility] DenvilleComment on above:Performed By: #### IFE3 #### [facility] [address] [place], [place] [address]LCSOD 2 GLOBULIN0.7 g/dLNormal0.4 - 1.1[facility] at DenvilleComment on above:Performed By: #### IFE3 #### [facility] [address] [place], [place] [address]MVGV GLOBULIN0.6 g/dLNormal0.5 - 1.2[facility] at DenvilleComment on above:Performed By: #### IFE3 #### [facility] [address] [place], [place] [address]IOIWQ GLOBULIN0.3 g/dLLow0.5 - 1.4[facility] Comment on above:Performed By: #### IFE3 #### [facility] [address] [place], [place] [address]MIZ AND DIFFERENTIALon 01-01-2023% AUTOMATED IMMATURE GRAN0.0 %Normal0.0 - 0.9[facility] at DenvilleComment on above:Result Comment: Immature Granulocyte Count (IG) includes promyelocytes, myelocytes and metamyelocytes but does not include bands. Percent differential counts (%) should be interpreted in the context of the absolute cell counts (cells/L).Performed By: #### CBCDF #### [facility] [address] [place], [place] [address]Dszngjkybwk (Bld) [#/Vol]0.05 10*3/uLNormal0.00 - 0.70[facility] at DenvilleComment on above:Result Comment: Automated WBC differential has been confirmed by manual smear.Performed By: #### CBCDF #### [facility] [address] [place], [place] [address]Grilmbwuulp/100 WBC (Bld)2.8 %Normal0.0 - 6.0[facility] at DenvilleComment on above:Performed By: #### CBCDF #### [facility] [address] [place], [place] [address]Bybgbtwdnne (Bld) [#/Vol]0.69 10*3/uLLow1.20 - 4.80[facility] DenvilleComment on above:Performed By: #### CBCDF #### [facility] [address] [place], [place] [address]Utqrhdkqlbk/100 WBC (Bld)38.1 %Azwegi14.0 - 44.0[facility] at DenvilleComment on above:Performed By: #### CBCDF #### [facility] [address] [place], [place] [address]Qnlofewhp (Bld) [#/Vol]0.30 10*3/uLNormal0.10 - 1.00[facility] DenvilleComment on above:Performed By: #### CBCDF #### [facility] [address] [place], [place] [address]Hwudalwzw/100 WBC (Bld)16.6 %Normal2.0 - 10.0[facility] at DenvilleComment on above:Performed By: #### CBCDF #### [facility] [address] [place], [place] [address]Klpczhvzrls (Bld) [#/Vol]0.77 10*3/uLLow1.20 - 7.70[facility] at DenvilleComment on above:Performed By: #### CBCDF #### [facility] [address] [place], [place] [address]Anbsjyngeah/100 WBC (Bld)42.5 %Slejaz56.0 - 80.0[facility] at DenvilleComment on above:Performed By: #### CBCDF #### [facility] [address] [place], [place] [address]Mbbbsdyufaq distribution width (RBC) [Ratio]14.8 %High11.5 - 14.5[facility] at DenvilleComment on above:Performed By: #### CBCDF #### [facility] [address] [place], [place] [address]Tvdqmhxiks (Bld) [Volume fraction]31.9 %Low36.0 - 46.0[facility] at DenvilleComment on above:Performed By: #### CBCDF #### [facility] [address] [place], [place] [address]Sppmevwnuc (Bld) [Mass/Vol]10.8 g/dLLow12.0 - 16.0[facility] DenvilleComment on above:Performed By: #### CBCDF #### [facility] [address] [place], [place] [address]XZRS (RBC) [Mass/Vol]33.9 g/kUMgxmgn92.0 - 36.0[facility]ized HospitalComment on above:Performed By: #### CBCDF #### [facility] [address] [place], [place] [address]REZ (RBC) [Entitic vol]102 qCRjcl76 - 100[facility] at DenvilleComment on above:Performed By: #### CBCDF #### [facility] [address] [place], [place] [address]Cuydftgru (Bld) [#/Vol]36 10*3/uXUfk456 - 450[facility] HospitalComment on above:Performed By: #### CBCDF #### [facility] [address] [place], [place] [address]FPP7.14 x10E12/LLow4.00 - 5.20[facility] Comment on above:Performed By: #### CBCDF #### [facility] [address] [place], [place] [address]BUG (Bld) [#/Vol]1.8 10*3/uLLow4.4 - 11.3[facility] DenvilleComment on above:Performed By: #### CBCDF #### [facility] [address] [place], [place] [address]ZRAXXWIVRZXGY PANELon 02-94-7283Xthxccb [Mass/Vol]3.6 g/dL Normal3.4 - 5.0[facility] DenvilleComment on above:Performed By: #### CMP #### [facility] [address] [place], [place] [address]EER [Catalytic activity/Vol]95 U/GZbvuyr64 - 136[facility] at DenvilleComment on above:Performed By: #### CMP #### [facility] [address] [place], [place] [address]YHE [Catalytic activity/Vol]22 U/LNormal7 - 45[facility] at DenvilleComment on above:Result Comment: Patients treated with Sulfasalazine may generate falsely decreased results for ALT.Performed By: #### CMP #### [facility] [address] [place], [place] [address]Mpolm gap [Moles/Vol]12 mmol/IYmkrya75 - 20[facility] DenvilleComment on above:Performed By: #### CMP #### [facility] [address] [place], [place] [address]BJY [Catalytic activity/Vol]27 U/LNormal9 - 39[facility] DenvilleComment on above:Performed By: #### CMP #### [facility] [address] [place], [place] [address]Klispbgbd [Mass/Vol]1.0 mg/dLNormal0.0 - 1.2[facility] DenvilleComment on above:Performed By: #### CMP #### [facility] [address] [place], [place] [address]Lpyvegp [Mass/Vol]9.4 mg/dLNormal8.6 - 10.6[facility] DenvilleComment on above:Performed By: #### CMP #### [facility] [address] [place], [place] [address]Svoakhwu [Moles/Vol]106 mmol/OAhtayc69 - 107[facility] DenvilleComment on above:Performed By: #### CMP #### [facility] [address] [place], [place] [address]Cdaefvyroj [Mass/Vol]0.37 mg/dLLow0.50 - 1.05[facility] DenvilleComment on above:Performed By: #### CMP #### [facility] [address] [place], [place] [address]tZGZ FEMALE>90Normal>90[facility] at DenvilleComment on above:Result Comment: CALCULATIONS OF ESTIMATED GFR ARE PERFORMED USING THE 2020 CKD-EPI STUDY REFIT EQUATION WITHOUT THE RACE VARIABLE FOR THE IDMS-TRACEABLE CREATININE METHODS. https://jasn.asnjournals.org/content//ASN.3837882820Aqjzppwiw By: #### CMP #### [facility] [address] [place], [place] [address]Izqxsuo [Mass/Vol]95 mg/tEYjcooz27 - 99[facility] DenvilleComment on above:Performed By: #### CMP #### [facility] [address] [place], [place] [address]ZOM2 (Bld) [Moles/Vol]29 mmol/IZtseef84 - 32[facility] DenvilleComment on above:Performed By: #### CMP #### [facility] [address] [place], [place] [address]Hlgdxoyfn [Moles/Vol]3.7 mmol/LNormal3.5 - 5.3[facility] DenvilleComment on above:Performed By: #### CMP #### [facility] [address] [place], [place] [address]Vuxtulf [Mass/Vol]5.3 g/dLLow6.4 - 8.2[facility] DenvilleComment on above:Performed By: #### CMP #### [facility] [address] [place], [place] [address]Hmicrkvak By: #### IFE3 #### [facility] [address] [place], [place] [address]Mlvnvt [Moles/Vol]143 mmol/TWnfabc123 - 145[facility] DenvilleComment on above:Performed By: #### CMP #### [facility] [address] [place], [place] [address]Ljex nitrogen [Mass/Vol]11 mg/dLNormal6 - 23[facility] DenvilleComment on above:Performed By: #### CMP #### [facility] [address] [place], [place] [address]Vvqnkj Note - Heme Oncon 56-67-4788Jpgfvx Note - Heme Onc Cancer History: Treatment Synopsis: She has been referred from Dr. Marinelli at [facility]. Patient has hx of MGUS since 2005 for which she was followed at [facility] by Dr. Kumari, and then Dr. Cummings. She saw Dr. Marinelli for anemia and thrombocytopenia. Patient had an initial bone marrow bx in 2005 with 4% plasma cells and a repeat one in 03/2017, now with 15% plasma cell concerning for smoldering myeloma. Around 02/2020 she has lesions in hip and pain underwent radiation therapy and later on was started on Jennifer and Velcade, had neuropathy and therapy was changed to Jennifer and Revlimi. PMH: Aortic aneurysm KAPADIA: at some point she has been listed on liver transplant list COPD DM Fibromyalgia GERD HTN Iron deficiency Surgical hx: Hysterectomy appendectomy cholecystectomy Social Hx: Former smoker, no illision drug, lives with son Allergies: erythromycin and latex and moxifloxacin History of Present Illness: ID Statement: null is a () day old null Interval History: Sje is doing overall fine, we reviewed myeloma progression symptoms which includes bone pain, weight loss, frequent infections, symptoms such as frequent urinations, fever, cough, abdominal pain, upper or lower back pain in details. . Allergies and Intolerances: Allergies: moxifloxacin: Drug, Hives/Urticaria, Active tetracycline: Drug, Unknown, Active Avelox: Drug, Rash, Active Latex: Latex, Unknown, Active quinolone antibiotics: Drug Category, Unknown, Active Outpatient Medication Profile: * Patient Currently Takes Medications as of 21-Nov-2021 12:01 documented in Structured Notes fluticasone propionate: Tudorza Pressair 400 mcg/inh inhalation powder: Advair Diskus 250 mcg-50 mcg inhalation powder: 1 puff(s) inhaled 2 times a day ProAir HFA: Levemir FlexTouch 100 units/mL subcutaneous solution: Takes 26 units every night sq sertraline 100 mg oral tablet: 1 tab(s) orally once a day freestyle lite: oxyCODONE 10 mg oral tablet, extended release: 1 tab(s) orally every 12 hours carvedilol 12.5 mg oral tablet: 1 tab(s) orally 2 times a day omeprazole 40 mg oral delayed release capsule: 1 cap(s) orally once a day Vitamin D3: 1 orally, 500 mg daily metFORMIN 500 mg oral tablet: 1 orally once a day Medical History: Multiple myeloma not having achieved remission: ICD-10: C90.00, Status: Active Social History: Social Substance History: Smoking Statusformer smoker Physical Exam: Constitutional: Well developed, awake/alert/oriented x3, no distress, alert and cooperative Eyes: PERRL, EOMI, clear sclera ENMT: mucous membranes moist, no apparent injury, no lesions seen Head/Neck: Neck supple, no apparent injury, thyroid without mass or tenderness, No JVD, trachea midline, no bruits Respiratory/Thorax: Patent airways, CTAB, normal breath sounds with good chest expansion, thorax symmetric Cardiovascular: Regular, rate and rhythm, no murmurs, 2+ equal pulses of the extremities, normal S 1and S 2 Musculoskeletal: ROM intact, no joint swelling, normal strength Extremities: normal extremities, no cyanosis edema, contusions or wounds, no clubbing Skin: Warm and dry, no lesions, no rashes Lab Results: Results CBC date/time WBC HGB HCT PLT Neut 21-Nov-2021 13:20 6.4 11.9(L) 36.0 91(L) 4.57 BMP date/time NA K CL CO2 BUN CREAT 21-Nov-2021 13:20 140 3.9 104 N/A 15 0.39(L) LDH date/time LDH 21-Nov-2021 13:20 N/A Assessment and Plan: Assessment and Plan: Assessment: She is a case of MGUS, and then smoldering myeloma which subsequently had bone lesion that was treated with radiation therapy in 02/2020. Subsequently she got Jennifer and Velcade, therapy was changed to Jennifer/Rev in early Oct. Importantly, she had history of cirrhosis, was listed 3 years on liver transplant list, as well as aorta aneurysm, 4.2 cm. It is important to learn about these two problem before determining any cellular therapy procedure. We will have all the notes from [facility]. I will have a phone visit in one month and discuss the next step. 01/01/2023: The alternative option of CAR T cell was discussed. CAR T is genetically engineered T cells that can be designed to target certain moleculs on Myeloma cell such BCMA, GPRC5 and others. The complications including cytokine release syndrom and ICANs based on the landmark study was discussed: Myrna CHRISTIANSON, López Bell LD, Catarino Thomas, Elizabeth Branham, Stacy J, Tiburcio S, Toribio Thomas, Camila Y, Sade D, Chacorta A, Lucy P. Idecabtagene vicleucel in relapsed and refractory multiple myeloma. [place] Journal of Medicine. 2020Dec 27;384(8):705-16. Also, I discussed the possibility of Teclistamab in future, when it is open in [facility]. For now, I suggest to hold therapy and continue to monitor. RTC in two months Time Based Billing: Prep Time on Date of Patient Encounter5 minute(s) Time Directly with (more content not included)...NormalSaint Clare's Hospital at DenvilleClinic Note - Intakeon [id number] Note - IntakePatient Visit Information: Visit TypeFollow Up Visit Source of Informationpatient Vital Signs: Temp (degrees C)36.1 degrees C Temperatureskin Heart Rate (beats/min)83 beats per minute Respiration (breaths/min)16 breath per minute BP Systolic (mm Hg)Image has been removed. 153 mmHg BP Diastolic (mm Hg)89 mmHg BP Mean (mm Hg)Image has been removed. 110 mmHg Height in cm155.6 centimeter(s) Height Methodmeasured Heightstanding Weight in kg84.6 kilogram(s) Weightstanding BMI (kg/m2)34.9 kg/M2 BSA (m2)1.91 M2 Nursing Verification [id number] Nursing Verification Height in cm155.6 centimeter(s) Nursing Verification Commentheight verified SpO2 (%)98 % SpO2 Patient Onroom air Pain Screening: Patient States Painno (0) Allergies: moxifloxacin: Drug, Hives/Urticaria, Active tetracycline: Drug, Unknown, Active Avelox: Drug, Rash, Active Latex: Latex, Unknown, Active quinolone antibiotics: Drug Category, Unknown, Active Outpatient Medication Profile: * Patient Currently Takes Medications as of 01-Jan-2023 15:34 documented in Structured Notes fluticasone propionate: Last Dose Taken: Tudorza Pressair 400 mcg/inh inhalation powder: Last Dose Taken: Advair Diskus 250 mcg-50 mcg inhalation powder: Last Dose Taken: , 1 puff(s) inhaled 2 times a day ProAir HFA: Last Dose Taken: Levemir FlexTouch 100 units/mL subcutaneous solution: Last Dose Taken: , Takes 26 units every night sq sertraline 100 mg oral tablet: Last Dose Taken: , 1 tab(s) orally once a day freestyle lite: Last Dose Taken: oxyCODONE 10 mg oral tablet, extended release: Last Dose Taken: , 1 tab(s) orally every 12 hours carvedilol 12.5 mg oral tablet: Last Dose Taken: , 1 tab(s) orally 2 times a day omeprazole 40 mg oral delayed release capsule: Last Dose Taken: , 1 cap(s) orally once a day Vitamin D3: Last Dose Taken: , 1 orally, 500 mg daily metFORMIN 500 mg oral tablet: Last Dose Taken: , 1 orally once a day Notification: NotificationsAnnual Screens Due Dates Advanced Directives: Due Now Family Violence: Jan 01, 2024 Depression (Due every 6 months for ONC only; all others use Annual date): Jun 30, 2023 Substance Use - Alcohol: Jan 01, 2024 Substance Use - Drugs: Jan 01, 2024 Nutrition: Jan 01, 2024 Learning: Jan 01, 2024 Travel History: COVID-19 Screening Completedno exposure or symptoms Travel or ExposureNO travel to International locations in the past 30 days Falls: Have you fallen in the last 6 monthsno Do you have a fear of fallingno Do you feel you need assistanceno Is the patient using an assistive deviceno Violence: Are you or have you been threatened or abused physically,emotionally or sexually abused by anyoneno Do you feel UNSAFE going back to the place you are livingno Depression: Past 2 wks: [place] down, depressed or hopelessno Past 2 wks: [place] little interest/pleasure doing thingsno Any Thoughts of Harming Othersno Substance: How many times in the past year have you had 4 or more drinks within 24 hours0 How many times in past year have you used recreational or prescription drugs for non-medical reasons0 Nutrition/Learning: In the past month, was there any day when you or anyone in your family went hungry because you didn't have enough foodno Primary LanguageEnglish Do you, or others today, need extra help due to problems with hearing,speaking, seeing, moving around or learningno Electronic Signatures: Chey Murray (PCNA) (Signed 01-Jan-2023 15:42) Authored: Patient Visit Information, Vital Signs, Allergies, Outpatient Medication Profile, Notification, Travel History, Falls, Violence, Depression, Substance, Nutrition/Learning Antoinette Dumont (CLIN COOR) (Signed 01-Jan-2023 18:13) Authored: Vital Signs, Notification Last Updated: 01-Jan-2023 18:13 by Antoinette Dumont (CLIN COOR)[facility] HomeIgA [Mass/volume] in Serum or PlasmaOrdered By: Fabiola Marinelli on 49-46-4187JtP [Mass/Vol]20 mg/tD65-380GpywtgnjrSalem City Hospital Comment on above:Result confirmed on concentration.IgG [Mass/volume] in Serum or PlasmaOrdered By: Fabiola Marinelli on 18-20-7420QhK [Mass/Vol]311 mg/hU580-3136 [facility] HospitalIgM [Mass/volume] in Serum or PlasmaOrdered By: Fabiola Marinelli on 47-64-6104EoT [Mass/Vol]13 mg/uV39-818PvwmobyqqSalem City HospitalComment on above:Result confirmed on concentration.Performed at: [facility] [place] [id number] Director: Lang Knight PhD, Phone: [phone] light chains.kappa.free [Mass/volume] in SerumOrdered By: Fabiola Marinelli on 74-66-9722Jsxsytfjayvpfo light chains.kappa.free (S) [Mass/Vol]6.3 mg/L3.3-19.4FPremier HealthImmunoglobulin light chains.kappa.free/Immunoglobulin light chains.lambda.free [MassOrdered By: Fabiola Marinelli on 92-08-0564Yrhztpmmtzixqw light chains.kappa.free/Immunoglobulin light chains.lambda.free (S) [Mass ratio]0.10 0.26-1.65Salem City HospitalComment on above:Performed at: [employer] [employer] [address] [id number] Director: Lang Knight PhD, Phone: [phone] light chains.lambda.free [Mass/volume] in Serum or PlasmaOrdered By: Fabiola Marinelli on 01-01-2023 Immunoglobulin light chains.lambda.free [Mass/Vol]61.3 mg/L5.7-26.3FPremier HealthLDHon 34-30-0556FQO607 U/XNunsty55 - 246[facility] at DenvilleComment on above:Performed By: #### LDH #### [facility] [address] [place], [place] [address]Rqcudwndivlkxo [Presence] in Blood by Light microscopyOrdered By: Fabiola Marinelli on 65-00-7593Ocjnblgsgyjoui LM Ql (Bld)[facility] Medical CenterRED CELL MORPHOLOGYon 50-10-8562IBSHBMTISZAliZwynmdEW [facility] Medical CenterComment on above:Performed By: #### MORP2 #### [facility] [address] [place], [place] [address]KPP morphology finding Nom (Bld)See BelowNoMt. San Rafael HospitalComment on above:Performed By: #### MORP2 #### [facility] [address] [place] [place], [place] [address]AMAG ACIDon 08-75-3403Tkmmh [Mass/Vol]3.9 mg/dLNormal2.3 - 6.7[facility] at DenvilleComment on above:Result Comment: Venipuncture immediately after or during the administration of Metamizole may lead to falsely low results. Testing should be performed immediately prior to Metamizole dosing.Performed By: #### KALAS #### [facility] [address] [place], [place] [address]Boeinyq [Mass/volume] in Serum or PlasmaOrdered By: Fabiola Marinelli on 90-47-9858Kqmtawd [Mass/Vol]3.1 g/dL3.2-5.5FPremier Health Alkaline phosphatase [Enzymatic activity/volume] in Serum or PlasmaOrdered By: Fabiola Marinelli on 70-17-2974TKY [Catalytic activity/Vol]96 U/I84-87VahuttiwoSalem City HospitalAnisocytosis LM Ql (Bld)Ordered By: Fabiola Marinelli on 12-25-2022 Anisocytosis Ql (Bld)[facility]age Medical CenterAspartate aminotransferase [Enzymatic activity/volume] in Serum or PlasmaOrdered By: Fabiola Marinelli on 34-37-1444GEV [Catalytic activity/Vol]29 U/O81-31NxibkfylwSalem City HospitalBasophils Auto (Bld) [#/Vol]Ordered By: Fabiola Marinelli on 12-25-2022 Basophils (Bld) [#/Vol]0.0 10*3/uL0.0-0.2FPremier Health Basophils/100 WBC Auto (Bld)Ordered By: Fabiola Marinelli on 78-63-9361Wyirrgqvc/100 WBC (Bld)0.3 %.Salem City HospitalBilirubin.total [Mass/volume] in Serum or PlasmaOrdered By: Fabiola Marinelli on 13-09-1446Tuqwrownb [Mass/Vol]1.1 mg/dL 0.3-1.2FPremier HealthCalcium [Mass/volume] in Serum or Plasma Ordered By: Fabiola Marinelli on 80-60-5567Lxcenej [Mass/Vol]8.4 mg/dL8.2-10.2FPremier HealthCarbon dioxide, total [Moles/volume] in Serum or Plasma Ordered By: Fabiola Marinelli on 20-99-6885GV9 [Moles/Vol]26.9 mmol/L22.0-30.0Salem City HospitalChloride [Moles/volume] in Serum or PlasmaOrdered By: Fabiola Marinelli on 31-82-8082Wzetcsyn [Moles/Vol]106 mmol/H24-790OqqdznoxvSalem City HospitalCreatinine and Glomerular filtration rate.predicted panel (S/P/Bld)Ordered By: Fabiola Marinelli on 09-67-4572Bkzmcmtpkx [Mass/Vol]0.42 mg/dL 0.44-1.03Salem City HospitalEosinophils Auto (Bld) [#/Vol]Ordered By: Fabiola Marinelli on 11-64-6427Ypsktkwcdbn (Bld) [#/Vol]0.1 10*3/uL0.0-0.45Salem City HospitalEosinophils/100 WBC Auto (Bld)Ordered By: Fabiola Marinelli on 48-95-9460Gejwmpoazbv/100 WBC (Bld)4.0 %.[facility] Erythrocyte distribution width Auto (RBC) [Ratio]Ordered By: Fabiola Marinelli on 13-85-5138Vtquhpesmaa distribution width (RBC) [Ratio]16.4 %11.9-15.3FPremier HealthEstimated glomerular filtration rate (GFR) non- AmericanOrdered By: Fabiola Marinelli on 79-88-4783VNF/1.73 sq M.predicted among non- blacks MDRD (S/P/Bld) [Vol rate/Area]> 60 mL/MinSalem City HospitalGFR/1.73 sq M.predicted among non-blacks MDRD (S/P/Bld) [Vol rate/Area] Estimated glomerular filtration rate (GFR) non- AmericanSalem City HospitalGlobulin Calc (S) [Mass/Vol]Ordered By: Fabiola Marinelli on 07-59-5816Xzqfxybk (S) [Mass/Vol]1.9 g/dLSalem City Hospital Glucose [Mass/volume] in Serum or PlasmaOrdered By: Fabiola Marinelli on 12-25-2022 Glucose [Mass/Vol]108 mg/zT58-953MznnaehsvSalem City HospitalComment on above:ADA recommended reference rangeRandom Glucose Reference Range is dependent on time and content of last meal. Glucose of more than 200 mg/dL in a nonstressed, ambulatory subject supports the diagnosisof Diabetes Mellitus. Hematocrit Auto (Bld) [Volume fraction]Ordered By: Fabiola Marinelli on 12-25-2022 Hematocrit (Bld) [Volume fraction]32.5 %34.0-46.4FPremier HealthHemoglobin [Mass/volume] in BloodOrdered By: Fabiola Marinelli on 12-25-2022 Hemoglobin (Bld) [Mass/Vol]11.0 g/dL11.8-15.4FPremier Health Leukocytes [#/volume] corrected for nucleated erythrocytes in Blood by Automated counOrdered By: Fabiola Marinelli on 58-62-0471YUD corrected for nucl RBC Auto (Bld) [#/Vol]1.7 10*3/uL3.8-11.6FPremier HealthLymphocytes Auto (Bld) [#/Vol]Ordered By: Fabiola Marinelli on 21-07-4616Zzdgjwpqtis (Bld) [#/Vol]0.5 10*3/uL1.00-4.8[facility] HospitalLymphocytes/100 WBC Auto (Bld) Ordered By: Fabiola Marinelli on 35-49-2834Trbghxxowtt/100 WBC (Bld)28.3 %.[facility]H Auto (RBC) [Entitic mass]Ordered By: Fabiola Marinelli on 42-93-3862PUO (RBC) [Entitic mass]34.6 pg24.7-34.3FPremier HealthMCHC Auto (RBC) [Mass/Vol]Ordered By: Fabiola Marinelli on 17-62-9746XEVK (RBC) [Mass/Vol]33.7 g/dL32.0-35.0[facility] HospitalMCV Auto (RBC) [Entitic vol]Ordered By: Fabiola Marinelli on 37-95-2412ZIR (RBC) [Entitic vol]102.5 fL 80-100[facility] HospitalMicrocytes LM Ql (Bld)Ordered By: Fabiola Marinelli on 79-53-7207Zgbhpwjlvx Ql (Bld)SlightSalem City Hospital Monocytes Auto (Bld) [#/Vol]Ordered By: Fabiola Marinelli on 82-20-9247Cpmdtddml (Bld) [#/Vol]0.3 10*3/uL0.0-0.8[facility] HospitalMonocytes/100 WBC Auto (Bld)Ordered By: Fabiola Marinelli on 88-48-9198Vycnpywpe/100 WBC (Bld)15.7 %.[facility] HospitalNeutrophils Auto (Bld) [#/Vol]Ordered By: Fabiola Marinelli on 50-08-9903Ctkxgzouflz (Bld) [#/Vol]0.9 10*3/uL1.8-7.7FPremier HealthNeutrophils/100 WBC Auto (Bld)Ordered By: Fabiola Marinelli on 12-25-2022 Neutrophils/100 WBC (Bld)51.7 %.[facility] HospitalNo Panel InformationOrdered By: Fabiola Marinelli on 66-16-2769Pumwctwhp GFR ()> 60 mL/MinSalem City HospitalComment on above:GFR estimated reference range: According to KDOQI guidelines, <60 ml/min/1.73m2 is sufficient todiagnose a patient with chronic kidney disease.Pharmacy Creatinine Clearance (Chem70.50[facility]> 60 mL/MinSalem City Hospital70.50[facility] HospitalNucleated erythrocytes [Presence] in Blood by Automated countOrdered By: Fabiola Marinelli on 59-14-6862Yhiippyof RBC Auto Ql (Bld)0.1 /100{WBC}0-0.5FPremier HealthOvalocyte detection Ordered By: Fabiola Marinelli on 92-03-9818Bydetennyh LM Ql (Bld)[facility] CenterPlatelet adequacy [Presence] in Blood by Light microscopy Ordered By: Fabiola Marinelli on 59-72-5740Qdmheffsu LM Ql (Bld)DecreasedNormCherrington HospitalPlatelet mean volume Auto (Bld) [Entitic vol]Ordered By: Fabiola Marinelli on 25-31-8192Jlaewlzd mean volume (Bld) [Entitic vol]8.4 fL6.3-10.7 [facility] HospitalPlatelet morphology finding [Identifier] in BloodOrdered By: Fabiola Marinelli on 03-02-1654Nzqxlixa morphology finding Nom (Bld) NormalNoOhioHealth Marion General HospitalPlatelets Auto (Bld) [#/Vol]Ordered By: Fabiola Marinelli on 92-97-6731Bzmblvbzp (Bld) [#/Vol]37 10*3/pP781-609PccrzvmzlSalem City HospitalComment on above:Critical Result PLT:37 called to and read back by: [id number] on 12/25/2022 11:36:22 by:JAYE.Poikilocytosis [Presence] in Blood by Light microscopyOrdered By: Fabiola Marinelli on 55-76-4186Bjroosgpqocfil LM Ql (Bld)[facility] CenterPolychromasia [Presence] in Blood by Light microscopyOrdered By: Fabiola Marinelli on 43-13-1006Ukjuzvxdbrdtw LM Ql (Bld)[facility] CenterPotassium [Moles/volume] in Serum or PlasmaOrdered By: Fabiola Marinelli on 43-56-9653Abluhinjj [Moles/Vol]3.6 mmol/L3.5-5.1 [facility] HospitalProtein [Mass/volume] in Serum or PlasmaOrdered By: Fabiola Marinelli on 76-64-0816Vhnfzzh [Mass/Vol]5.0 g/dL6.1-7.9[facility] HospitalRBC Auto (Bld) [#/Vol]Ordered By: Fabiola Marinelli on 37-59-8245YPK (Bld) [#/Vol]3.17 10*6/uL3.60-5.00[facility] HospitalRB morphology Ordered By: Fabiola Marinelli on 45-75-6216QOR morphology finding Nom (Bld)N/AFSouthview Medical Centererum or plasma alanine aminotransferase measurement without P-5'-P (enzymatic activiOrdered By: Fabiola Marinelli on 53-48-1767VWW No additional P-5'-P [Catalytic activity/Vol]28 U/T43-80FntwwabsmRiverview Health Instituteerum or plasma albumin/globulin mass ratioOrdered By: Fabiola Marinelli on 77-32-9258Hfxvkpj/Globulin [Mass ratio]1.6 {ratio}[facility] Health Instituteerum or plasma anion gap determinationOrdered By: Fabiola Marinelli on 12-25-2022 Anion gap [Moles/Vol]8.7 mmol/L6.0-15.0R[facility]view Health Instituteerum or plasma creatinine measurement with calculation of estimated glomerular filtr Ordered By: Fabiola Marinelli on 90-47-7367Ijirbkrivc and Glomerular filtration rate.predicted panel (S/P/Bld)0.42 mg/dL0.44-1.03Riverview Health Instituteodium [Moles/volume] in Serum or PlasmaOrdered By: Fabiola Marinelli on 85-51-2180Bivmeq [Moles/Vol]138 mmol/Q011-860LsorfgdljSalem City Hospital Urea nitrogen [Mass/volume] in Serum or PlasmaOrdered By: Fabiola Marinelli on 29-62-1907Bchq nitrogen [Mass/Vol]8 mg/dL9-23[facility] WBC Auto (Bld) [#/Vol]Ordered By: Fabiola Marinelli on 40-71-0645QXR (Bld) [#/Vol]1.7 10*3/uL3.8-11.6FPremier HealthIgA [Mass/volume] in Serum or PlasmaOrdered By: Fabiola Marinelli on 07-59-8513GuF [Mass/Vol]19 mg/kE61-089RnkbsbfueSalem City HospitalComment on above:Result confirmed on concentration.IgG [Mass/volume] in Serum or PlasmaOrdered By: Fabiola Marinelli on 92-46-2456FjD [Mass/Vol]306 mg/oY355-1206IvzcpknccSalem City HospitalIgM [Mass/volume] in Serum or PlasmaOrdered By: Fabiola Marinelli on 11-19-4933UoI [Mass/Vol]10 mg/fK09-352 [facility] HospitalComment on above:Result confirmed on concentration.Performed at: [employer] [id number] Director: Lang Knight PhD, Phone: [phone] light chains.kappa.free [Mass/volume] in SerumOrdered By: Fabiola Marinelli on 12-18-2022 Immunoglobulin light chains.kappa.free (S) [Mass/Vol]5.8 mg/L3.3-19.4FPremier HealthImmunoglobulin light chains.kappa.free/Immunoglobulin light chains.lambda.free [MassOrdered By: Fabiola Marinelli on 56-05-4765Shzuocwwyddksw light chains.kappa.free/Immunoglobulin light chains.lambda.free (S) [Mass ratio] 0.140.26-1.65[facility] City HospitalComment on above:Performed at: [employer] [id number] Director: Lang Knight PhD, Phone: [phone] light chains.lambda.free [Mass/volume] in Serum or PlasmaOrdered By: Fabiola Marinelli on 12-18-2022 Immunoglobulin light chains.lambda.free [Mass/Vol]41.7 mg/L5.7-26.3FPremier HealthMacrocytes LM Ql (Bld)Ordered By: Fabiola Marinelli on 12-18-2022 Macrocytes Ql (Bld)[facility] CenterPlatelets Large [Presence] in Blood by Light microscopyOrdered By: Fabiola Marinelli on 12-11-2022 Platelets Large LM Ql (Bld)[facility] Centerchistocytes [Presence] in Blood by Light microscopyOrdered By: Fabiola Marinelli on 12-11-2022 Schistocytes LM Ql (Bld)[facility] CenterTeardrop cell detectionOrdered By: Fabiola Marinelli on 60-32-8472Bxhwptfmpy LM Ql (Bld)[facility] HospitalAlbumin [Mass/volume] in Serum or PlasmaOrdered By: Fabiola Marinelli on 72-95-0339Hzwacoo [Mass/Vol]3.1 g/dL3.2-5.5FPremier HealthAnisocytosis LM Ql (Bld)Ordered By: Fabiola Marinelli on 11-25-2022 Anisocytosis Ql (Bld)[facility] CenterBasophils Auto (Bld) [#/Vol]Ordered By: Fabiola Marinelli on 46-48-4620Wknqflhuw (Bld) [#/Vol]N/[facility] CenterBasophils/100 WBC Auto (Bld)Ordered By: Fabiola Marinelli on 94-33-3101Lysizpfvw/100 WBC (Bld)N/[facility] CenterEosinophils Auto (Bld) [#/Vol]Ordered By: Fabiola Marinelli on 34-96-4280Wmpyqmpgcfj (Bld) [#/Vol] N/[facility] CenterEosinophils/100 WBC Auto (Bld)Ordered By: Fabiola Marinelli on 42-25-3606Wrclcqrufmb/100 WBC (Bld)N/[facility] CenterEosinophils/100 WBC Manual cnt (Bld)Ordered By: Fabiola Marinelli on 11-25-2022 Eosinophils/100 WBC (Bld)2 %1-3FPremier HealthErythrocyte distribution width Auto (RBC) [Ratio]Ordered By: Fabiola Marinelli on 11-25-2022 Erythrocyte distribution width (RBC) [Ratio]17.5 %11.9-15.3FPremier HealthEstimated glomerular filtration rate (GFR) non- Ordered By: Fabiola Marinelli on 92-71-6724MQJ/1.73 sq M.predicted among non-blacks MDRD (S/P/Bld) [Vol rate/Area]> 60 mL/MinSalem City HospitalGiant platelets/100 leukocytes [Ratio] in Blood by Manual countOrdered By: Fabiola Marinelli on 14-28-4962Mahtl platelets/100 WBC Manual cnt (Bld) [Ratio]4 /100{WBC} [facility] HospitalGlobulin Calc (S) [Mass/Vol]Ordered By: Fabiola Marinelli on 89-52-7805Xqgzvwap (S) [Mass/Vol]1.8 g/dLSalem City HospitalHematocrit Auto (Bld) [Volume fraction]Ordered By: Fabiola Marinelli on 11-25-2022 Hematocrit (Bld) [Volume fraction]31.3 %34.0-46.4FPremier HealthHemoglobin [Mass/volume] in BloodOrdered By: Fabiola Marinelli on 11-25-2022 Hemoglobin (Bld) [Mass/Vol]10.6 g/dL11.8-15.4FPremier Health Leukocytes [#/volume] corrected for nucleated erythrocytes in Blood by Automated counOrdered By: Fabiola Marinelli on 93-64-6032HDB corrected for nucl RBC Auto (Bld) [#/Vol]1.3 10*3/uL3.8-11.6FPremier HealthLymphocytes Auto (Bld) [#/Vol]Ordered By: Fabiola Marinelli on 90-30-3333Jmcgqjeuiwm (Bld) [#/Vol]N/A [facility] HospitalLymphocytes/100 WBC Auto (Bld)Ordered By: Fabiola Marinelli on 16-37-4194Lsminthpjfe/100 WBC (Bld)N/AFPremier Health Lymphocytes/100 WBC Manual cnt (Bld)Ordered By: Fabiola Marinelli on 11-25-2022 Lymphocytes/100 WBC (Bld)37 %18-42Sal[facility] HospitalMCH Auto (RBC) [Entitic mass]Ordered By: Fabiola Marinelli on 17-23-0660QZG (RBC) [Entitic mass] 34.5 pg24.7-34.3FPremier HealthMCHC Auto (RBC) [Mass/Vol] Ordered By: Fabiola Marinelli on 78-36-1552FRCE (RBC) [Mass/Vol]33.8 g/dL32.0-35.0 [facility] HospitalMCV Auto (RBC) [Entitic vol]Ordered By: Fabiola Marinelli on 53-64-2247ZMO (RBC) [Entitic vol]102.1 mD36-566GgzsqazlhSalem City HospitalMonocytes Auto (Bld) [#/Vol]Ordered By: Fabiola Marinelli on 11-25-2022 Monocytes (Bld) [#/Vol]NDayton Osteopathic HospitalMonocytes/100 WBC Auto (Bld)Ordered By: Fabiola Marinelli on 09-05-1146Ovanxzswx/100 WBC (Bld)N/[facility] CenterMonocytes/100 WBC Manual cnt (Bld)Ordered By: Fabiola Marinelli on 37-56-7304Npuznraan/100 WBC (Bld)7 %2-11[facility] Neutrophils Auto (Bld) [#/Vol]Ordered By: Fabiola Marinelli on 11-96-4020Avxntnorbvh (Bld) [#/Vol]NDayton Osteopathic HospitalNeutrophils/100 WBC Auto (Bld) Ordered By: Fabiola Marinelli on 43-03-5653Mitihwgunhf/100 WBC (Bld)[facility] CenterNo Panel InformationOrdered By: Fabiola Marinelli on 11-25-2022> 60 mL/[facility]69.88[facility] Nucleated erythrocytes [Presence] in Blood by Automated countOrdered By: Fabiola Marinelli on 80-31-4357Kzzcvqcja RBC Auto Ql (Bld)[facility] CenterOvalocyte detectionOrdered By: Fabiola Marinelli on 91-31-8139Nsvejuytmn LM Ql (Bld)SlightSalem City HospitalPlatelet adequacy [Presence] in Blood by Light microscopyOrdered By: Fabiola Marinelli on 40-66-1211Dtcxnxjam LM Ql (Bld)DecreasedNormCherrington HospitalPlatelet mean volume Auto (Bld) [Entitic vol]Ordered By: Fabiola Marinelli on 91-18-8205Mxxdhjdz mean volume (Bld) [Entitic vol]8.8 fL6.3-10.7FPremier HealthPlatelet morphology finding [Identifier] in BloodOrdered By: Fabiola Marinelli on 34-51-7908Hdaqnasg morphology finding Nom (Bld)NormalNormalSalem City Hospital Platelets Auto (Bld) [#/Vol]Ordered By: Fabiola Marinelli on 08-51-0986Culdthtaq (Bld) [#/Vol]40 10*3/vY798-736AuqcubkdiSalem City HospitalPolychromasia [Presence] in Blood by Light microscopyOrdered By: Fabiola Marinelli on 11-25-2022 Polychromasia LM Ql (Bld)SlightSalem City HospitalProtein [Mass/volume] in Serum or PlasmaOrdered By: Fabiola Marinelli on 14-46-4824Myxbdgh [Mass/Vol]4.9 g/dL6.1-7.9[facility] HospitalRBC Auto (Bld) [#/Vol] Ordered By: Fabiola Marinelli on 03-06-5807XOS (Bld) [#/Vol]3.07 10*6/uL3.60-5.00 [facility] HospitalRB morphologyOrdered By: Fabiola Marinelli on 72-80-8438LYI morphology finding Nom (Bld)N/AFPremier Health Segmented neutrophils/100 WBC Manual cnt (Bld)Ordered By: Fabiola Marinelli on 50-32-6333Qdlhldoyf neutrophils/100 WBC (Bld)54 %50-70Riverview Health Instituteerum or plasma alanine aminotransferase measurement without P-5'-P (enzymatic activiOrdered By: Fabiola Marinelli on 27-91-9957BMH No additional P-5'-P [Catalytic activity/Vol]26 U/G04-23FgwnjxtjiRiverview Health Instituteerum or plasma albumin/globulin mass ratioOrdered By: Fabiola Marinelli on 11-25-2022 Albumin/Globulin [Mass ratio]1.7 {ratio}[facility] Instituteerum or plasma alkaline phosphatase measurement (enzymatic activity/volume)Ordered By: Fabiola Marinelli on 98-53-8118DOA [Catalytic activity/Vol]92 U/X58-85VtcifbxftRiverview Health Instituteerum or plasma anion gap determinationOrdered By: Fabiola Marinelli on 71-87-6873Xzwpl gap [Moles/Vol]10.6 mmol/L6.0-15.0R[facility] Instituteerum or plasma aspartate aminotransferase measurement (enzymatic activity/volume)Ordered By: Fabiola Marinelli on 44-77-5538COB [Catalytic activity/Vol] 28 U/O26-82IncolizqlRiverview Health Instituteerum or plasma calcium measurement (mass/volume)Ordered By: Fabiola Marinelli on 89-10-2077Wefsfvz [Mass/Vol]8.7 mg/dL 8.2-10.2FSouthview Medical Centererum or plasma chloride measurement (moles/volume)Ordered By: Fabiola Marinelli on 46-50-0386Zmbvyhop [Moles/Vol]106 mmol/L 95-114Riverview Health Instituteerum or plasma creatinine measurement with calculation of estimated glomerular filtrOrdered By: Fabiola Marinelli on 41-14-2741Owocjqvaad and Glomerular filtration rate.predicted panel (S/P/Bld) 0.41 mg/dL0.44-1.03R[facility] Health Instituteerum or plasma glucose measurement (mass/volume)Ordered By: Fabiola Marinelli on 63-67-4931Xwmubxk [Mass/Vol] 107 mg/fQ35-407JpreaisqyRiverview Health Instituteerum or plasma potassium measurement (moles/volume)Ordered By: Fabiola Marinelli on 52-26-2854Lkmveymst [Moles/Vol]3.8 mmol/L3.5-5.1FSouthview Medical Centererum or plasma sodium measurement (moles/volume)Ordered By: Fabiola Marinelli on 16-89-0735Zeoini [Moles/Vol]139 mmol/E807-415UrhtsolfoRiverview Health Instituteerum or plasma total bilirubin measurement (mass/volume)Ordered By: Fabiola Marinelli on 11-25-2022 Bilirubin [Mass/Vol]1.2 mg/dL0.3-1.2FSouthview Medical Centererum or plasma total carbon dioxide measurement (moles/volume)Ordered By: Fabiola Marinelli on 42-51-9734AX9 [Moles/Vol]26.2 mmol/L22.0-30.0[facility] Serum or plasma urea nitrogen measurement (mass/volume)Ordered By: Fabiola Marinelli on 19-31-4730Wstd nitrogen [Mass/Vol]9 mg/dL9-23[facility] Teardrop cell detectionOrdered By: Fabiola Marinelli on 16-57-8526Fpciqaywcz LM Ql (Bld) SlightSalem City HospitalWBC Auto (Bld) [#/Vol]Ordered By: Fabiola Marinelli on 88-28-5789GLE (Bld) [#/Vol]1.3 10*3/uL3.8-11.6FPremier HealthHypochromia LM Ql (Bld)Ordered By: Fabiola Marinelli on 11-13-2022 Hypochromia Ql (Bld)[facility] CenterIgA [Mass/volume] in Serum or PlasmaOrdered By: Fabiola Marinelli on 03-21-4875WoX [Mass/Vol]20 mg/cW85-989 [facility] HospitalIgG [Mass/volume] in Serum or PlasmaOrdered By: Fabiola Marinelli on 83-20-8199SzB [Mass/Vol]321 mg/oQ587-4102XxjjkedtbSalem City HospitalIgM [Mass/volume] in Serum or PlasmaOrdered By: Fabiola Marinelli on 37-78-5497IbA [Mass/Vol]11 mg/tG52-884TceiuhvjqSalem City Hospital Immunoglobulin light chains.kappa.free [Mass/volume] in SerumOrdered By: Fabiola Marinelli on 48-41-4327Rhwluoforartca light chains.kappa.free (S) [Mass/Vol]5.7 mg/L 3.3-19.4FPremier HealthImmunoglobulin light chains.kappa.free/Immunoglobulin light chains.lambda.free [MassOrdered By: Fabiola Marinelli on 03-03-6639Tfmmenbwkrrvgk light chains.kappa.free/Immunoglobulin light chains.lambda.free (S) [Mass ratio]0.150.26-1.65[facility] HospitalImmunoglobulin light chains.lambda.free [Mass/volume] in Serum or Plasma Ordered By: Fabiola Marinelli on 90-73-2668Hbghrskksjykpu light chains.lambda.free [Mass/Vol]38.7 mg/L5.7-26.3FPremier HealthMacrocytes LM Ql (Bld)Ordered By: Fabiola Marinelli on 20-33-9545Snsxobnijb Ql (Bld)[facility] CenterPoikilocytosis [Presence] in Blood by Light microscopy Ordered By: Fabiola Marinelli on 12-14-2589Mycewlxoqzsqtv LM Ql (Bld)[facility] CenterAnisocytosis LM Ql (Bld)Ordered By: Fabiola Marinelli on 26-07-4255Chgzmuxuvgxv Ql (Bld)SlightSalem City HospitalBand form neutrophils/100 WBC Manual cnt (Bld)Ordered By: Fabiola Marinelli on 55-72-2753Zqlt form neutrophils/100 WBC (Bld)1 %0-5FPremier HealthBand form neutrophils/100 WBC (Bld)Peripheral white blood cell differential % bands, microscopic exam0-5FPremier HealthBasophils Auto (Bld) [#/Vol] Ordered By: Fabiola Marinelli on 57-41-3529Doefoshjc (Bld) [#/Vol]N/[facility] CenterBasophils/100 WBC Auto (Bld)Ordered By: Fabiola Marinelli on 11-05-2022 Basophils/100 WBC (Bld)N/[facility] CenterEosinophils Auto (Bld) [#/Vol]Ordered By: Fabiola Marinelli on 87-13-8382Prjggbfbkrj (Bld) [#/Vol]N/A [facility] HospitalEosinophils/100 WBC Auto (Bld)Ordered By: Fabiola Marinelli on 07-66-3469Vsvhfeftzwa/100 WBC (Bld)N/[facility] Eosinophils/100 WBC Manual cnt (Bld)Ordered By: Fabiola Marinelli on 11-05-2022 Eosinophils/100 WBC (Bld)7 %1-3FPremier HealthErythrocyte distribution width Auto (RBC) [Ratio]Ordered By: Fabiola Marinelli on 11-05-2022 Erythrocyte distribution width (RBC) [Ratio]15.9 %11.9-15.3FPremier HealthGiant platelets/100 leukocytes [Ratio] in Blood by Manual count Ordered By: Fabiola Marinelli on 20-63-9628Wcxes platelets/100 WBC Manual cnt (Bld) [Ratio]9 /100{WBC}[facility] HospitalHematocrit Auto (Bld) [Volume fraction]Ordered By: Fabiola Marinelli on 00-86-2898Bbjuclcwca (Bld) [Volume fraction] 31.7 %34.0-46.4FPremier HealthHemoglobin [Mass/volume] in BloodOrdered By: Fabiola Marinelli on 88-30-8972Zzplnusgki (Bld) [Mass/Vol]10.8 g/dL 11.8-15.4FPremier HealthLeukocytes [#/volume] corrected for nucleated erythrocytes in Blood by Automated counOrdered By: Fabiola Marinelli on 63-42-0187GIL corrected for nucl RBC Auto (Bld) [#/Vol]1.5 10*3/uL3.8-11.6 [facility] HospitalLymphocytes Auto (Bld) [#/Vol]Ordered By: Fabiola Marinelli on 87-86-1421Pinuddfxqfr (Bld) [#/Vol]N/[facility] Lymphocytes/100 WBC Auto (Bld)Ordered By: Fabiola Marinelli on 61-21-7865Exgosptlzkg/100 WBC (Bld)N/[facility] CenterLymphocytes/100 WBC Manual cnt (Bld)Ordered By: Fabiola Marinelli on 85-46-8616Jsghvegseol/100 WBC (Bld)34 %18-42 [facility] HospitalMCH Auto (RBC) [Entitic mass]Ordered By: Fabiola Marinelli on 08-62-6981JGZ (RBC) [Entitic mass]34.6 pg24.7-34.3FPremier HealthMCHC Auto (RBC) [Mass/Vol]Ordered By: Fabiola Marinelli on 84-87-7911IDPL (RBC) [Mass/Vol]34.0 g/dL32.0-35.0[facility] HospitalMCV Auto (RBC) [Entitic vol]Ordered By: Fabiola Marinelli on 23-89-6385XYY (RBC) [Entitic vol] 101.7 gI06-944ZejysbhlzSalem City HospitalMicrocytes LM Ql (Bld)Ordered By: Fabiola Marinelli on 60-49-8814Tbtgmuutjz Ql (Bld)SlightSalem City HospitalMonocytes Auto (Bld) [#/Vol]Ordered By: Fabiola Marinelli on 03-25-3854Bhvaujwyp (Bld) [#/Vol]N/[facility] CenterMonocytes/100 WBC Auto (Bld) Ordered By: Fabiola Marinelli on 19-96-7006Fxreuxfii/100 WBC (Bld)N/[facility] CenterMonocytes/100 WBC Manual cnt (Bld)Ordered By: Fabiola Marinelli on 16-85-4859Shibkyxig/100 WBC (Bld)13 %2-11[facility] Myelocytes/100 WBC Manual cnt (Bld)Ordered By: Fabiola Marinelli on 11-05-2022 Myelocytes/100 WBC (Bld)1 %High0-0[facility] Myelocytes/100 WBC (Bld)Myelocytes/100 leukocytes in Blood by Manual countHigh 0-0[facility] HospitalNeutrophils Auto (Bld) [#/Vol]Ordered By: Fabiola Marinelli on 53-65-8221Pmmeufbhory (Bld) [#/Vol]N/[facility] CenterNeutrophils/100 WBC Auto (Bld)Ordered By: Fabiola Marinelli on 11-05-2022 Neutrophils/100 WBC (Bld)NDayton Osteopathic HospitalNucleated erythrocytes [Presence] in Blood by Automated countOrdered By: Fabiola Marinelli on 25-57-2155Znaguesiz RBC Auto Ql (Bld)N/[facility] Ovalocyte detectionOrdered By: Fabiola Marinelli on 83-23-0496Iegabjsyag LM Ql (Bld) SlightSalem City HospitalPlatelet adequacy [Presence] in Blood by Light microscopyOrdered By: Fabiola Marinelli on 28-39-8699Zrtnqerei LM Ql (Bld) DecreasedNormCherrington HospitalPlatelet mean volume Auto (Bld) [Entitic vol]Ordered By: Fabiola Marinelli on 65-27-3253Ahztebme mean volume (Bld) [Entitic vol]9.7 fL6.3-10.7FPremier HealthPlatelet morphology finding [Identifier] in BloodOrdered By: Fabiola Marinelli on 08-35-3646Cxwkvxot morphology finding Nom (Bld)NormalNormCherrington Hospital Platelets Auto (Bld) [#/Vol]Ordered By: Fabiola Marinelli on 46-36-1029Srlezfado (Bld) [#/Vol]46 10*3/xQ041-807WqartwbpqSalem City HospitalPoikilocytosis [Presence] in Blood by Light microscopyOrdered By: Fabiola Marinelli on 11-05-2022 Poikilocytosis LM Ql (Bld)[facility] CenterPolychromasia [Presence] in Blood by Light microscopyOrdered By: Fabiola Marinelli on 11-05-2022 Polychromasia LM Ql (Bld)[facility] CenterRBC Auto (Bld) [#/Vol]Ordered By: Fabiola Marinelli on 70-23-7033BOP (Bld) [#/Vol]3.12 10*6/uL3.60-5.00 [facility] HospitalRBC morphologyOrdered By: Fabiola Marinelli on 79-99-9220PLI morphology finding Nom (Bld)N/AFPremier Health Segmented neutrophils/100 WBC Manual cnt (Bld)Ordered By: Fabiola Marinelli on 44-74-5670Sxjosxizw neutrophils/100 WBC (Bld)46 %50-70[facility] HospitalTeardrop cell detectionOrdered By: Fabiola Marinelli on 65-44-9924Ungsyallaa LM Ql (Bld)[facility] CampusWBC Auto (Bld) [#/Vol]Ordered By: Fabiola Marinelli on 76-71-6181XIJ (Bld) [#/Vol]1.5 10*3/uL3.8-11.6FPremier HealthMacrocytes LM Ql (Bld)Ordered By: Fabiola Marinelli on 10-28-2022 Macrocytes Ql (Bld)[facility] CenterPlatelets Large [Presence] in Blood by Light microscopyOrdered By: Fabiola Marinelli on 10-28-2022 Platelets Large LM Ql (Bld)[facility] CenterXR CHEST 1 Von 11-32-4679FI CHEST 1 VEXAMINATION: XR CHEST 1 V HISTORY: Acute upper respiratory infection , chest pain, cough, fever COMPARISON: No relevant comparison available. FINDINGS: LUNGS: Hyperexpanded lungs without appreciable infiltrates. VASCULATURE: No increased pulmonary vasculature. PLEURA: No pneumothorax, effusion, or pleural thickening. CARDIAC: No cardiomegaly or cardiac silhouette abnormality. MEDIASTINUM: No visible mass or adenopathy. BONES: No fracture or visible bone lesion. OTHER: Port-A-Cath projects over right hemithorax with tip near cavoatrial junction. IMPRESSION: 1. No acute cardiac pulmonary process. 2. Hyperexpanded lungs. Electronically authenticated by: RISA HERNANDEZ Date: 2022-10-23 15:24NoEast Liverpool City HospitalRESPIRATORY PANEL PLUSon 21-51-8118NyhknbxkhsBjf detectedNormal NOT DETECTEDThe [facility] HamiltonComment on above:Performed By: #### RSPLUS #### [facility] [address] [address] [address] Griselda [place]. ParapertusisNot detectedNormalNOT DETECTEDThe [facility] HamiltonComment on above:Performed By: #### RSPLUS #### [facility] [address] [address] [address] Griselda Martin PertussisNot detectedNormalNOT DETECTEDThe [facility] Comment on above:Performed By: #### RSPLUS #### [facility] [address] [address] [address] Griselda RuedaChlamydia PneumoniaeNot detectedNormalNOT DETECTEDThe [facility] HamiltonComment on above:Performed By: #### RSPLUS #### [facility] [address] [address] [address] Griselda RuedaCoronavirus 229ENot detectedNormalNOT DETECTEDThe [facility] HamiltonCommclaren [place] on above:Performed By: #### RSPLUS #### [facility] [address] [address] [address] Griselda RuedaCoronavirus [id number] detectedNormalNOT DETECTEDThe [facility] HamiltonComment on above:Performed By: #### RSPLUS #### [facility] [address] [address] [address] Griselda RuedaCoronavirus [id number] detectedNormalNOT DETECTEDThe [facility] HamiltonComment on above:Performed By: #### RSPLUS #### [facility] [address] [address] [address] Griselda RuedaCoronavirus [id number] detectedNormalNOT DETECTEDThe [facility] HamiltonComment on above:Performed By: #### RSPLUS #### [facility] [address] [address] [address] Griselda Oconnor H1 2009Not detectedNormalNOT DETECTEDThe [facility] HamiltonComment on above:Performed By: #### RSPLUS #### [facility] [address] [address] [address] Griselda Oconnor R9MmrjnmvjNfrqgivgVSB DETECTEDThe [facility] Comment on above:Performed By: #### RSPLUS #### [facility] [address] [address] [address] Griselda Ward BNot detectedNormalNOT DETECTEDThe [facility] Comment on above:Performed By: #### RSPLUS #### [facility] [address] [address] [address] Griselda HarperapneumovirusNot detectedNormalNOT DETECTEDThe [facility] HamiltonComment on above:Performed By: #### RSPLUS #### [facility] [address] [address] [address] Griselda Curry. PneumoniaeNot detectedNormalNOT DETECTEDThe [facility] HamiltonComment on above:Performed By: #### RSPLUS #### [facility] [address] [address] [address] Griselda Perez 1Not detectedNormalNOT DETECTEDThe [facility]Commcl[facility] [place] on above:Performed By: #### RSPLUS #### [facility] [address] [address] [address] Griselda Perez 2Not detectedNormalNOT DETECTEDThe [facility] HamiltonComment on above:Performed By: #### RSPLUS #### [facility] [address] [address] [address] Griselda Perez 3Not detectedNormalNOT DETECTEDThe [facility] HamiltonComment on above:Performed By: #### RSPLUS #### [facility] [address] [address] [address] Griselda Perez 4Not detectedNormalNOT DETECTEDThe [facility] HamiltonComment on above:Performed By: #### RSPLUS #### [facility] [address] [address] [address] Griselda RuedaRhino/EnterovirusNot detectedNormalNOT DETECTEDThe [facility] HamiltonComment on above:Performed By: #### RSPLUS #### [facility] [address] [address] [address] Griselda Oconnor Header 1RESPIRATORY PANEL: [facility] Comment on above:Performed By: #### RSPLUS #### [facility] [address] [address] [address] Griselda Oconnor Header 2RESPIRATORY PANEL: BACTERIAChillicothe VA Medical CenterComment on above:Performed By: #### RSPLUS #### [facility] [address] [address] [address] Griselda LermaVNot detectedNormalNOT DETECTEDThe [facility] HamiltonComment on above:Performed By: #### RSPLUS #### [facility] [address] [address] [address] Griselda Che-CoV-2 (COVID-19) RNA JOHANN+probe Ql (Unsp spec)Not detected NormalNOT DETECTEDThe [facility] HamiltonComment on above:Performed By: #### RSPLUS #### [facility] [address] [address] [address] 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 Order #: [id number] CLICK HERE TO VIEW EXAM RADIOLOGY REPORT PROCEDURE: MAMMOGRAM SCREENING 3D BILATERAL CAD COMPARISON: MG MAMM SCREEN BRENDA W CAD, 02/19/2018. MG MAMM SCREEN BRENDA W CAD, 03/23/2019. INDICATIONS: Screening mammography Calculator Name NCI Breast Cancer Risk Assessment Tool 5 Year Breast Cancer Risk 4.00% Lifetime Breast Cancer Risk 14.50% Personal Breast Cancer No Personal Ovarian Cancer No Treatments None Family Cancers Sister with breast cancer at age 52; Mother with colon cancer at age 78; Father with prostate cancer at age 76; Brother with lung cancer at age 64. LOCATION: [facility] BREAST COMPOSITION: Scattered areas fibroglandular density. FINDINGS: DIAGNOSTIC CATEGORY 2--BENIGN FINDING. NO CHANGE FROM COMPARISON. Scattered benign-appearing calcifications are present. Scattered benign-appearing lymph nodes are present. RIGHT BREAST: No significant suspicious finding. LEFT BREAST: No significant suspicious finding. RECOMMENDATIONS: ROUTINE MAMMOGRAM AND CLINICAL EVALUATION IN 12 MONTHS. PLEASE NOTE: A NORMAL MAMMOGRAM DOES NOT EXCLUDE THE POSSIBILITY OF BREAST CANCER. A CLINICALLY SUSPICIOUS PALPABLE LUMP SHOULD BE BIOPSIED. Dictated by: Phyllis Lozano MD on 10/16/2022 at 13:17 Approved by: Phyllis Lozano MD on 10/16/2022 at 13:20[facility] Anisocytosis LM Ql (Bld)Ordered By: Fabiola Marinelli on 35-86-8773Witplmpounzz Ql (Bld) SlightSalem City HospitalBasophils Auto (Bld) [#/Vol]Ordered By: Fabiola Marinelli on 74-19-1991Pntzkwnli (Bld) [#/Vol]0.0 10*3/uL0.0-0.2FPremier HealthBasophils/100 WBC Auto (Bld)Ordered By: Fabiola Marinelli on 25-69-9745Nvroojvkk/100 WBC (Bld)0.3 %.[facility] HospitalBody fluid albumin measurement (mass/volume)Ordered By: Fabiola Marinelli on 10-14-2022 Albumin (Body fld) [Mass/Vol]3.0 g/dL3.2-5.5FPremier Health Creatinine and Glomerular filtration rate.predicted panel (S/P/Bld)Ordered By: Fabiola Marinelli on 35-59-7767Nnuixisuxt [Mass/Vol]0.43 mg/dL0.44-1.03[facility] City HospitalEosinophils Auto (Bld) [#/Vol]Ordered By: Fabiola Marinelli on 13-06-7186Vpgbhfplmzu (Bld) [#/Vol]0.1 10*3/uL0.0-0.45[facility] HospitalEosinophils/100 WBC Auto (Bld)Ordered By: Fabiola Marinelli on 10-14-2022 Eosinophils/100 WBC (Bld)3.6 %.[facility] HospitalErythrocyte distribution width Auto (RBC) [Ratio]Ordered By: Fabiola Marinelli on 10-14-2022 Erythrocyte distribution width (RBC) [Ratio]16.9 %11.9-15.3FPremier HealthEstimated glomerular filtration rate (GFR) non- Ordered By: Fabiola Marinelli on 41-55-4176YDN/1.73 sq M.predicted among non-blacks MDRD (S/P/Bld) [Vol rate/Area]> 60 mL/MinSalem City HospitalGlobulin Calc (S) [Mass/Vol]Ordered By: Fabiola Marinelli on 69-33-2715Oypyrlhr (S) [Mass/Vol]2.0 g/dLSalem City HospitalHematocrit Auto (Bld) [Volume fraction] Ordered By: Fabiola Marinelli on 71-07-4090Qfqvwmmozh (Bld) [Volume fraction]31.3 % 34.0-46.4FPremier HealthHemoglobin [Mass/volume] in Blood Ordered By: Fabiola Marinelli on 90-59-7276Vygxqkrakl (Bld) [Mass/Vol]10.5 g/dL11.8-15.4 [facility] HospitalLeukocytes [#/volume] corrected for nucleated erythrocytes in Blood by Automated counOrdered By: Fabiola Marinelli on 62-81-6046NVQ corrected for nucl RBC Auto (Bld) [#/Vol]1.9 10*3/uL3.8-11.6FPremier HealthLymphocytes Auto (Bld) [#/Vol]Ordered By: Fabiola Marinelli on 10-14-2022 Lymphocytes (Bld) [#/Vol]0.4 10*3/uL1.00-4.8[facility] Lymphocytes/100 WBC Auto (Bld)Ordered By: Fabiola Marinelli on 42-16-3878Ngwczyhpzsl/100 WBC (Bld)23.7 %.[facility] HospitalMCH Auto (RBC) [Entitic mass] Ordered By: Fabiola Marinelli on 44-91-9316MGP (RBC) [Entitic mass]35.3 pg24.7-34.3 [facility] HospitalMCHC Auto (RBC) [Mass/Vol]Ordered By: Fabiola Marinelli on 59-13-8155QTCE (RBC) [Mass/Vol]33.6 g/dL32.0-35.0[facility] HospitalMCV Auto (RBC) [Entitic vol]Ordered By: Fabiola Marinelli on 45-38-5237YLK (RBC) [Entitic vol]104.9 wB49-900DmlytcikkSalem City HospitalMonocytes Auto (Bld) [#/Vol]Ordered By: Fabiola Marinelli on 82-27-9357Njfuytylm (Bld) [#/Vol]0.3 10*3/uL 0.0-0.8[facility] HospitalMonocytes/100 WBC Auto (Bld)Ordered By: Fabiola Marinelli on 58-71-2207Rcvyedmet/100 WBC (Bld)17.3 %.[facility] HospitalNeutrophils Auto (Bld) [#/Vol]Ordered By: Fabiola Marinelli on 10-14-2022 Neutrophils (Bld) [#/Vol]1.0 10*3/uL1.8-7.7FPremier Health Neutrophils/100 WBC Auto (Bld)Ordered By: Fabiola Marinelli on 95-14-6694Otqsdgdihma/100 WBC (Bld)55.1 %.[facility] HospitalNo Panel InformationOrdered By: Fabiola Marinelli on 57-21-4006Oucqrwgxo GFR ()> 60 mL/MinSalem City HospitalComment on above:GFR estimated reference range: According to KDOQI guidelines, <60 ml/min/1.73m2 is sufficient todiagnose a patient with chronic kidney disease.Pharmacy Creatinine Clearance (Chem69.70[facility]> 60 mL/MinSalem City Hospital69.70 [facility] HospitalNucleated erythrocytes [Presence] in Blood by Automated countOrdered By: aFbiola Marinelli on 06-57-3912Weihutuzp RBC Auto Ql (Bld)0.1 /100{WBC}0-0.5FPremier HealthPlatelet adequacy [Presence] in Blood by Light microscopyOrdered By: Fabiola Marinelli on 67-39-1582Upkcqggwy LM Ql (Bld)DecreasedNormCherrington HospitalPlatelet mean volume Auto (Bld) [Entitic vol]Ordered By: Fabiola Marinelli on 01-05-0704Yiojwxyf mean volume (Bld) [Entitic vol]9.3 fL6.3-10.7FPremier HealthPlatelet morphology finding [Identifier] in BloodOrdered By: Fabiola Marinelli on 98-23-8762Ephyghex morphology finding Nom (Bld)NormalNormCherrington Hospital Platelets Auto (Bld) [#/Vol]Ordered By: Fabiola Marinelli on 50-21-3708Qrpziykps (Bld) [#/Vol]49 10*3/fA005-556NgrnubuotSalem City HospitalPoikilocytosis [Presence] in Blood by Light microscopyOrdered By: Fabiola Marinelli on 10-14-2022 Poikilocytosis LM Ql (Bld)[facility] CenterPolychromasia [Presence] in Blood by Light microscopyOrdered By: Fabiola Marinelli on 10-14-2022 Polychromasia LM Ql (Bld)[facility] Medical CenterProtein [Mass/volume] in Serum or PlasmaOrdered By: Fabiola Marinelli on 17-28-5635Gfdjptl [Mass/Vol]5.0 g/dL6.1-7.9[facility] HospitalRBC Auto (Bld) [#/Vol] Ordered By: Fabiola Marinelli on 14-89-6557BKI (Bld) [#/Vol]2.98 10*6/uL3.60-5.00 [facility] HospitalRB morphologyOrdered By: Fabiola Marinelli on 35-32-1655EPL morphology finding Nom (Bld)N/AFPremier Health Serum or plasma alanine aminotransferase measurement without P-5'-P (enzymatic activiOrdered By: Fabiola Marinelli on 49-79-9210LRE No additional P-5'-P [Catalytic activity/Vol]37 U/M43-33CofbxclntRiverview Health Instituteerum or plasma albumin/globulin mass ratioOrdered By: Fabiola Marinelli on 28-83-1574Koehfhr/Globulin [Mass ratio]1.5 {ratio}Riverview Health Instituteerum or plasma alkaline phosphatase measurement (enzymatic activity/volume)Ordered By: Fabiola Marinelli on 78-87-0222TJS [Catalytic activity/Vol]94 U/Y21-71BcakondltRiverview Health Instituteerum or plasma anion gap determinationOrdered By: Fabiola Marinelli on 10-14-2022 Anion gap [Moles/Vol]12.6 mmol/L6.0-15.0Riverview Health Instituteerum or plasma aspartate aminotransferase measurement (enzymatic activity/volume) Ordered By: Fabiola Marinelli on 52-00-9857JRU [Catalytic activity/Vol]35 U/L10-42 [facility] Instituteerum or plasma calcium measurement (mass/volume)Ordered By: Fabiola Marinelli on 88-58-6719Uxbqxmx [Mass/Vol]8.8 mg/dL 8.2-10.2FSouthview Medical Centererum or plasma chloride measurement (moles/volume)Ordered By: Fabiola Marinelli on 05-30-2174Oezqqwvi [Moles/Vol]102 mmol/L 95-114Riverview Health Instituteerum or plasma creatinine measurement with calculation of estimated glomerular filtrOrdered By: Fabiola Marinelli on 23-70-6115Qecmxmdsvh and Glomerular filtration rate.predicted panel (S/P/Bld) 0.43 mg/dL0.44-1.03Riverview Health Instituteerum or plasma glucose measurement (mass/volume)Ordered By: Fabiola Marinelli on 07-24-3727Ebmetij [Mass/Vol] 132 mg/eO61-258KtnsjmtrnSalem City HospitalComment on above:ADA recommended reference rangeRandom Glucose Reference Range is dependent on time and content of last meal. Glucose of more than 200 mg/dL in a nonstressed, ambulatory subject supports the diagnosisof Diabetes Mellitus.Serum or plasma potassium measurement (moles/volume)Ordered By: Fabiola Marinelli on 20-27-4029Wjcuoyfew [Moles/Vol]3.4 mmol/L3.5-5.1FSouthview Medical Centererum or plasma sodium measurement (moles/volume)Ordered By: Fabiola Marinelli on 98-19-5043Ilyrao [Moles/Vol]140 mmol/F574-999NrbbgzvikRiverview Health Instituteerum or plasma total bilirubin measurement (mass/volume)Ordered By: Fabiola Marinelli on 10-14-2022 Bilirubin [Mass/Vol]1.4 mg/dL0.3-1.2FPremier HealthComment on above:Samples from patients who have taken Naproxen have shown spurious elevation in Total Bilirubin levels. A metabolite of Naproxen, O- desmethylnaproxen, has been shown to interfere with the Shanon-Felicitas method for measuring Total Bilirubin.Serum or plasma total carbon dioxide measurement (moles/volume)Ordered By: Fabiola Marinelli on 62-35-1681RE8 [Moles/Vol]28.8 mmol/L 22.0-30.0Riverview Health Instituteerum or plasma urea nitrogen measurement (mass/volume)Ordered By: Fabiola Marinelli on 35-52-8251Qsjp nitrogen [Mass/Vol]12 mg/dL9-23Sal[facility] City HospitalTeardrop cell detection Ordered By: Fabiola Marinelli on 10-81-2905Rvumostgls LM Ql (Bld)[facility] CenterWBC Auto (Bld) [#/Vol]Ordered By: Fabiola Marinelli on 10-14-2022 WBC (Bld) [#/Vol]1.9 10*3/uL3.8-11.6FPremier Health Basophils/100 WBC Manual cnt (Bld)Ordered By: Fabiola Marinelli on 10-07-2022 Basophils/100 WBC (Bld)0 %0-2FPremier HealthEosinophils/100 WBC Manual cnt (Bld)Ordered By: Fabiola Marinelli on 68-47-3868Euyoktdhclq/100 WBC (Bld) 0 %1-3FPremier HealthLymphocytes/100 WBC Manual cnt (Bld) Ordered By: Fabiola Marinelli on 18-52-3049Focsarndfjf/100 WBC (Bld)30 %18-42Sal[facility] City HospitalMacrocytes LM Ql (Bld)Ordered By: Fabiola Marinelli on 10-07-2022 Macrocytes Ql (Bld)[facility] CenterMetamyelocytes/100 WBC Manual cnt (Bld)Ordered By: Fabiola Marinelli on 08-02-9543Djrcpgbiutbnhs/100 WBC (Bld) 2 %0-0[facility] HospitalMonocytes/100 WBC Manual cnt (Bld)Ordered By: Fabiola Marinelli on 43-36-8867Japspfemr/100 WBC (Bld)8 %2-11[facility] HospitalMyelocytes/100 WBC Manual cnt (Bld)Ordered By: Fabiola Marinelli on 78-59-3635Gzthjhtucu/100 WBC (Bld)11 %0-0[facility] HospitalNo Panel InformationOrdered By: Fabiola Marinelli on 89-92-3674Hjxdiu for Pathologist ReviewN/[facility] CenterN/[facility] Ovalocyte detectionOrdered By: Fabiola Marinelli on 75-88-5103Pnalvkdnxl LM Ql (Bld) SlightSalem City HospitalPlasma cells/100 leukocytes in Blood by Manual countOrdered By: Fabiola Marinelli on 12-82-0615Ylvrek cells/100 WBC Manual cnt (Bld)1 %High0-0[facility] HospitalPlasma cells/100 WBC Manual cnt (Bld)Plasma cells/100 leukocytes in Blood by Manual countHigh0-0[facility] HospitalPlatelets Large [Presence] in Blood by Light microscopy Ordered By: Fabiola Marinelli on 52-99-4579Clilduqwv Large LM Ql (Bld)[facility] Medical Centeregmented neutrophils/100 WBC Manual cnt (Bld)Ordered By: Fabiola Marinelli on 87-62-4229Hyephcibc neutrophils/100 WBC (Bld)48 %50-70[facility] HospitalMicrocytes LM Ql (Bld)Ordered By: Fabiola Marinelli on 10-03-2022 Microcytes Ql (Bld)[facility] CenterAnisocytosis LM Ql (Bld)Ordered By: Fabiola Marinelli on 92-95-1292Gnhqdapsqntp Ql (Bld)ModerateSalem City HospitalBasophils Auto (Bld) [#/Vol]Ordered By: Fabiola Marinelli on 71-60-6869Obklfdcwb (Bld) [#/Vol]0.0 10*3/uL0.0-0.2FPremier HealthBasophils/100 WBC Auto (Bld)Ordered By: Fabiola Marinelli on 09-23-2022 Basophils/100 WBC (Bld)0.1 %.[facility] HospitalEosinophils Auto (Bld) [#/Vol]Ordered By: Fabiola Marinelli on 25-38-7882Uqxwrjxuzkh (Bld) [#/Vol]0.0 10*3/uL0.0-0.45[facility] HospitalEosinophils/100 WBC Auto (Bld) Ordered By: Fabiola Marinelli on 07-77-3503Evhmxyjpceq/100 WBC (Bld)2.8 %.[facility] HospitalErythrocyte distribution width Auto (RBC) [Ratio]Ordered By: Fabiola Marinelli on 16-38-3479Zsafckccshr distribution width (RBC) [Ratio]17.2 % 11.9-15.3FPremier HealthHematocrit Auto (Bld) [Volume fraction]Ordered By: Fabiola Marinelli on 93-81-9422Govmlehcci (Bld) [Volume fraction] 31.4 %34.0-46.4FPremier HealthHemoglobin [Mass/volume] in BloodOrdered By: Fabiola Marinelli on 19-89-8464Jnlthslikm (Bld) [Mass/Vol]10.4 g/dL 11.8-15.4FPremier HealthLaboratory - Hematology and Cell countsOrdered By: Fabiola Marinelli on 93-70-6458Shylwbgoh RBC/100 WBC (Bld) [Ratio]0.6 %0-0.5FPremier HealthLymphocytes Auto (Bld) [#/Vol]Ordered By: Fabiola Marinelli on 38-87-5743Vejhwqtkziz (Bld) [#/Vol]0.5 10*3/uL1.00-4.8[facility] HospitalLymphocytes/100 WBC Auto (Bld)Ordered By: Fabiola Marinelli on 03-39-8952Zaunhmjodcw/100 WBC (Bld)29.2 %.[facility] Auto (RBC) [Entitic mass]Ordered By: Fabiola Marinelli on 86-94-9290ECY (RBC) [Entitic mass]34.4 pg24.7-34.3FPremier HealthMCHC Auto (RBC) [Mass/Vol] Ordered By: Fabiola Marinelli on 78-58-3917DFWW (RBC) [Mass/Vol]33.1 g/dL32.0-35.0 [facility] HospitalMCV Auto (RBC) [Entitic vol]Ordered By: Fabiola Marinelli on 11-04-6466UDJ (RBC) [Entitic vol]103.8 fN36-134AuxeddxbnSalem City HospitalMacrocytes LM Ql (Bld)Ordered By: Fabiola Marinelli on 09-23-2022 Macrocytes Ql (Bld)[facility] CenterMonocytes Auto (Bld) [#/Vol]Ordered By: Fabiola Marinelli on 31-29-5330Wmxgmjiuc (Bld) [#/Vol]0.2 10*3/uL 0.0-0.8[facility] HospitalMonocytes/100 WBC Auto (Bld)Ordered By: Fabiola Marinelli on 99-59-7991Pmdzlkkwe/100 WBC (Bld)14.6 %.[facility] HospitalNeutrophils Auto (Bld) [#/Vol]Ordered By: Fabiola Marinelli on 09-23-2022 Neutrophils (Bld) [#/Vol]0.8 10*3/uL1.8-7.7FPremier Health Neutrophils/100 WBC Auto (Bld)Ordered By: Fabiola Marinelli on 39-65-2826Ewpnwmhpsyu/100 WBC (Bld)53.3 %.[facility] HospitalNo Panel InformationOrdered By: Fabiola Marinelli on 21.6 10*3/uL4.5-11.0[facility] 0.6 %High0-0.5FPremier HealthOvalocyte detectionOrdered By: Fabiola Marinelli on 50-74-4206Sclfmoojpq LM Ql (Bld)[facility] CenterPlatelet adequacy [Presence] in Blood by Light microscopyOrdered By: Fabiola Marinelli on 32-38-7360Qsgvqopnq LM Ql (Bld)DecreasedNormalSalem City HospitalPlatelet mean volume Auto (Bld) [Entitic vol]Ordered By: Fabiola Marinelli on 24-88-4686Xnhikrju mean volume (Bld) [Entitic vol]9.3 fL6.3-10.7FPremier HealthPlatelet morphology finding [Identifier] in BloodOrdered By: Fabiola Marinelli on 04-81-1240Tkwygdcl morphology finding Nom (Bld)NormalNormal [facility] HospitalPlatelets Auto (Bld) [#/Vol]Ordered By: Fabiola Marinelli on 32-98-9450Pzqhufnum (Bld) [#/Vol]34 10*3/tU377-449MjitlqikrSalem City HospitalPoikilocytosis [Presence] in Blood by Light microscopyOrdered By: Fabiola Marinelli on 80-69-7097Drvlvgjbvjlyar LM Ql (Bld)[facility] CenterPolychromasia [Presence] in Blood by Light microscopyOrdered By: Fabiola Marinelli on 30-66-9217Penppppujbywl LM Ql (Bld)[facility] CenterRBC Auto (Bld) [#/Vol]Ordered By: Fabiola Marinelli on 15-80-2549UYN (Bld) [#/Vol]3.03 10*6/uL3.60-5.00[facility] morphology Ordered By: Fabiola Marinelli on 73-99-4140AGL morphology finding Nom (Bld)N/AFSouthview Medical Centerchistocytes [Presence] in Blood by Light microscopy Ordered By: Fabiola Marinelli on 23-53-2268Hxzmqyfaakkc LM Ql (Bld)[facility] CenterTeardrop cell detectionOrdered By: Fabiola Marinelli on 42-51-0582Gyplspxbnt LM Ql (Bld)[facility] CenterWBC Auto (Bld) [#/Vol]Ordered By: Fabiola Marinelli on 27-84-8107UNW (Bld) [#/Vol]1.6 10*3/uL 3.8-11.6FPremier HealthAlbumin [Mass/volume] in Serum or PlasmaOrdered By: Fabiola Marinelli on 71-92-3663Kgykjpg [Mass/Vol]3.0 g/dL3.2-5.5 [facility] HospitalAnisocytosis LM Ql (Bld)Ordered By: Fabiola Marinelli on 64-34-5613Aiofydeuvvqy Ql (Bld)[facility] Basophils Auto (Bld) [#/Vol]Ordered By: Fabiola Marinelli on 40-72-1342Ecmbcaasu (Bld) [#/Vol]0.0 10*3/uL0.0-0.2FPremier HealthBasophils/100 WBC Auto (Bld)Ordered By: Fabiola Marinelli on 68-28-0372Dyjbzlqrv/100 WBC (Bld)0.2 %.[facility] HospitalEosinophils Auto (Bld) [#/Vol]Ordered By: Fabiola Marinelli on 81-51-9574Jtyevaiycrr (Bld) [#/Vol]0.0 10*3/uL0.0-0.45[facility] HospitalEosinophils/100 WBC Auto (Bld)Ordered By: Fabiola Marinelli on 09-16-2022 Eosinophils/100 WBC (Bld)2.0 %.[facility] HospitalErythrocyte distribution width Auto (RBC) [Ratio]Ordered By: Fabiola Marinelli on 09-16-2022 Erythrocyte distribution width (RBC) [Ratio]17.8 %11.9-15.3FPremier HealthEstimated glomerular filtration rate (GFR) non- Ordered By: Fabiola Marinelli on 58-06-7509TJV/1.73 sq M.predicted among non-blacks MDRD (S/P/Bld) [Vol rate/Area]> 60 mL/MinSalem City HospitalGlobulin Calc (S) [Mass/Vol]Ordered By: Fabiola Marinelli on 58-70-4606Wqtqyuql (S) [Mass/Vol]1.8 g/dLSalem City HospitalHematocrit Auto (Bld) [Volume fraction] Ordered By: Fabiola Marinelli on 31-85-2658Fvvfudiyik (Bld) [Volume fraction]31.3 % 34.0-46.4FPremier HealthHemoglobin [Mass/volume] in Blood Ordered By: Fabiola Marinelli on 93-31-2172Eubrvxbvnr (Bld) [Mass/Vol]10.4 g/dL11.8-15.4 [facility] HospitalLymphocytes Auto (Bld) [#/Vol]Ordered By: Fabiola Marinelli on 21-27-1080Nzszgbvfegx (Bld) [#/Vol]0.5 10*3/uL1.00-4.8[facility] HospitalLymphocytes/100 WBC Auto (Bld)Ordered By: Fabiola Marinelli on 15-57-8828Lpkvmfjpmqx/100 WBC (Bld)35.7 %.[facility] CenterH Auto (RBC) [Entitic mass]Ordered By: Fabiola Marinelli on 69-93-3576OHM (RBC) [Entitic mass]34.4 pg24.7-34.3FPremier HealthMCHC Auto (RBC) [Mass/Vol] Ordered By: Fabiola Marinelli on 83-69-1016ACFE (RBC) [Mass/Vol]33.3 g/dL32.0-35.0 [facility] HospitalMCV Auto (RBC) [Entitic vol]Ordered By: Fabiola Marinelli on 37-56-9225JJW (RBC) [Entitic vol]103.3 zJ26-182QnqljxnvwSalem City HospitalMacrocytes LM Ql (Bld)Ordered By: Fabiola Marinelli on 09-16-2022 Macrocytes Ql (Bld)SlightSalem City HospitalMonocytes Auto (Bld) [#/Vol]Ordered By: Fabiola Marinelli on 74-50-9892Ajjnapgcj (Bld) [#/Vol]0.2 10*3/uL 0.0-0.8[facility] HospitalMonocytes/100 WBC Auto (Bld)Ordered By: Fabiola Marinelli on 65-26-0845Zomqhqlwp/100 WBC (Bld)16.8 %.[facility] HospitalNeutrophils Auto (Bld) [#/Vol]Ordered By: Fabiola Marinelli on 09-16-2022 Neutrophils (Bld) [#/Vol]0.6 10*3/uL1.8-7.7FPremier Health Neutrophils/100 WBC Auto (Bld)Ordered By: Fabiola Marinelli on 83-06-1626Vrxtzxpjynd/100 WBC (Bld)45.3 %.[facility] HospitalNo Panel InformationOrdered By: Fabiola Marinelli on 21.4 10*3/uL4.5-11.0[facility] 0.1 %0-0.5FPremier Health> 60 mL/MinSalem City Hospital69.98[facility] HospitalPlatelet adequacy [Presence] in Blood by Light microscopyOrdered By: Fabiola Marinelli on 25-69-3233Lunllhtxn LM Ql (Bld)DecreasedNormCherrington HospitalPlatelet mean volume Auto (Bld) [Entitic vol]Ordered By: Fabiola Marinelli on 50-59-5661Gdpqjzei mean volume (Bld) [Entitic vol]8.4 fL6.3-10.7FPremier HealthPlatelet morphology finding [Identifier] in BloodOrdered By: Fabiola Marinelli on 88-45-8739Nqbfqzil morphology finding Nom (Bld)NormalNormCherrington Hospital Platelets Auto (Bld) [#/Vol]Ordered By: Fabiola Marinelli on 47-02-1106Wssnzigvi (Bld) [#/Vol]43 10*3/zK359-815FqabzvtuvSalem City HospitalPolychromasia [Presence] in Blood by Light microscopyOrdered By: Fabiola Marinelli on 09-16-2022 Polychromasia LM Ql (Bld)SlightSalem City HospitalProtein [Mass/volume] in Serum or PlasmaOrdered By: Fabiola Marinelli on 39-03-0501Duoezsz [Mass/Vol]4.8 g/dL6.1-7.9[facility] HospitalRB Auto (Bld) [#/Vol] Ordered By: Fabiola aMrinelli on 67-44-6259OSR (Bld) [#/Vol]3.04 10*6/uL3.60-5.00 [facility] HospitalRB morphologyOrdered By: Fabiola Marinelli on 83-48-4241GXI morphology finding Nom (Bld)N/AFPremier Health Serum or plasma alanine aminotransferase measurement without P-5'-P (enzymatic activiOrdered By: Fabiola Marinelli on 31-20-6885SFV No additional P-5'-P [Catalytic activity/Vol]29 U/K53-55ZurwxkdlgRiverview Health Instituteerum or plasma albumin/globulin mass ratioOrdered By: Fabiola Marinelli on 75-09-8879Tsiccdw/Globulin [Mass ratio]1.7 {ratio}[facility] Instituteerum or plasma alkaline phosphatase measurement (enzymatic activity/volume)Ordered By: Fabiola Marinelli on 54-22-9174VDX [Catalytic activity/Vol]97 U/D75-65AbfyorajlRiverview Health Instituteerum or plasma anion gap determinationOrdered By: Fabiola Marinelli on 09-16-2022 Anion gap [Moles/Vol]8.8 mmol/L6.0-15.0[facility] Instituteerum or plasma aspartate aminotransferase measurement (enzymatic activity/volume) Ordered By: Fabiola Marinelli on 64-62-9866ZXM [Catalytic activity/Vol]32 U/L10-42 [facility] Instituteerum or plasma calcium measurement (mass/volume)Ordered By: Fabiola Marinelli on 88-95-2506Upzkfmp [Mass/Vol]8.4 mg/dL 8.2-10.2FSouthview Medical Centererum or plasma chloride measurement (moles/volume)Ordered By: Fabiola Marinelli on 43-10-9412Uolzradg [Moles/Vol]105 mmol/L 95-114[facility] Health Instituteerum or plasma creatinine measurement with calculation of estimated glomerular filtrOrdered By: Fabiola Marinelli on 61-62-1765Zamrjnxnlt and Glomerular filtration rate.predicted panel (S/P/Bld) 0.43 mg/dL0.44-1.03[facility] Instituteerum or plasma glucose measurement (mass/volume)Ordered By: Fabiola Marinelli on 81-43-2484Kbncaxd [Mass/Vol] 102 mg/yH33-171NizjdctetRiverview Health Instituteerum or plasma potassium measurement (moles/volume)Ordered By: Fabiola Marinelli on 14-61-1079Sbeloyuyl [Moles/Vol]3.6 mmol/L3.5-5.1FSouthview Medical Centererum or plasma sodium measurement (moles/volume)Ordered By: Fabiola Marinelli on 53-36-1670Devheg [Moles/Vol]137 mmol/J423-674AjqsduqxaRiverview Health Instituteerum or plasma total bilirubin measurement (mass/volume)Ordered By: Fabiola Marinelli on 09-16-2022 Bilirubin [Mass/Vol]1.0 mg/dL0.3-1.2FSouthview Medical Centererum or plasma total carbon dioxide measurement (moles/volume)Ordered By: Fabiola Marinelli on 81-65-9214DJ4 [Moles/Vol]26.8 mmol/L22.0-30.0[facility] Serum or plasma urea nitrogen measurement (mass/volume)Ordered By: Fabiola Marinelli on 38-76-2073Emnf nitrogen [Mass/Vol]12 mg/dL9-23[facility] WBC Auto (Bld) [#/Vol]Ordered By: Fabiola Yves on 24-20-0103DNS (Bld) [#/Vol]1.4 10*3/uL3.8-11.6FPremier HealthBand form neutrophils/100 WBC Manual cnt (Bld)Ordered By: Fabiola Marinelli on 31-30-0193Qsbq form neutrophils/100 WBC (Bld)1 %0-5FPremier HealthEosinophils/100 WBC Manual cnt (Bld)Ordered By: Fabiola Marinelli on 35-86-3553Lrizfwvactg/100 WBC (Bld)1 %1-3FPremier HealthIgA [Mass/volume] in Serum or PlasmaOrdered By: Fabiola Marinelli on 27-31-9702CwD [Mass/Vol]20 mg/wR85-788NxkmzlmepSalem City Hospital Comment on above:Result confirmed on concentration.IgG [Mass/volume] in Serum or PlasmaOrdered By: Fabiola Marinelli on 25-48-3258RjM [Mass/Vol]323 mg/zK387-9112 [facility] HospitalIgM [Mass/volume] in Serum or PlasmaOrdered By: Fabiola Marinelli on 57-82-5652CkW [Mass/Vol]8 mg/wD09-630QystftpiiSalem City HospitalComment on above:Result confirmed on concentration.Performed at: [employer] [id number] Director: Lang Knight PhD, Phone: [phone] light chains.kappa.free [Mass/volume] in SerumOrdered By: Fabiola Marinelli on 42-41-4660Obpcitufrquojz light chains.kappa.free (S) [Mass/Vol]6.5 mg/L3.3-19.4FPremier HealthImmunoglobulin light chains.kappa.free/Immunoglobulin light chains.lambda.free [MassOrdered By: Fabiola Marinelli on 75-06-8579Uzladanfaluxgq light chains.kappa.free/Immunoglobulin light chains.lambda.free (S) [Mass ratio]0.15 0.26-1.65[facility] HospitalComment on above:Performed at: [employer] [id number] Director: Lang Knight PhD, Phone: [phone] light chains.lambda.free [Mass/volume] in Serum or PlasmaOrdered By: Fabiola Marinelli on 09-12-2022 Immunoglobulin light chains.lambda.free [Mass/Vol]44.3 mg/L5.7-26.3FPremier HealthLymphocytes/100 WBC Manual cnt (Bld)Ordered By: Fabiola Marinelli on 65-04-6681Avdbssclkwd/100 WBC (Bld)43 %18-42[facility] HospitalMetamyelocytes/100 WBC Manual cnt (Bld)Ordered By: Fabiola Marinelli on 09-12-2022 Metamyelocytes/100 WBC (Bld)1 %0-0[facility] HospitalMonocytes/100 WBC Manual cnt (Bld)Ordered By: Fabiola Marinelli on 28-14-4362Ipdrvhtrx/100 WBC (Bld) 13 %2-11[facility] HospitalOvalocyte detectionOrdered By: Fabiola Marinelli on 64-85-9273Ugrwesmarm LM Ql (Bld)[facility] Platelets Large [Presence] in Blood by Light microscopyOrdered By: Fabiola Marinelli on 87-27-8002Ksddhsoyf Large LM Ql (Bld)[facility] Schistocytes [Presence] in Blood by Light microscopyOrdered By: Fabiola Marinelli on 72-86-5309Zobzotysrtgu LM Ql (Bld)[facility] Segmented neutrophils/100 WBC Manual cnt (Bld)Ordered By: Fabiola Marinelli on 71-19-2638Wokhfwrbf neutrophils/100 WBC (Bld)38 %50-70[facility] HospitalVariant lymphocytes/100 WBC Manual cnt (Bld)Ordered By: Fabiola Marinelli on 54-88-9384Xfutftr lymphocytes/100 WBC (Bld)3 %0-12[facility] HospitalVariant lymphocytes/100 WBC (Bld)Variant lymphocytes/100 leukocytes in Blood by Manual count0-[facility] HospitalPoikilocytosis [Presence] in Blood by Light microscopyOrdered By: Fabiola Marinelli on 09-09-2022 Poikilocytosis LM Ql (Bld)SlightSalem City HospitalTeardrop cell detectionOrdered By: Fabiola Marinelli on 24-31-7160Ukczynplww LM Ql (Bld)Slight [facility] HospitalAlbumin [Mass/volume] in Serum or PlasmaOrdered By: Fabiola Marinelli on 79-87-9882Dcpnlfx [Mass/Vol]3.0 g/dL3.2-5.5FPremier HealthBasophils Auto (Bld) [#/Vol]Ordered By: Fabiola Marinelli on 08-19-2022 Basophils (Bld) [#/Vol]0.0 10*3/uL0.0-0.2FPremier Health Basophils/100 WBC Auto (Bld)Ordered By: Fabiola Marinelli on 11-83-2187Iwpvaoxma/100 WBC (Bld)0.2 %.[facility] HospitalEosinophils Auto (Bld) [#/Vol] Ordered By: Fabiola Marinelli on 46-05-2277Adlpmxjsazy (Bld) [#/Vol]0.0 10*3/uL0.0-0.45 [facility] HospitalEosinophils/100 WBC Auto (Bld)Ordered By: Fabiola Marinelli on 10-78-0063Zrxybarxcqh/100 WBC (Bld)1.7 %.[facility] HospitalErythrocyte distribution width Auto (RBC) [Ratio]Ordered By: Fabiola Marinelli on 49-22-1705Ppwldnvluhu distribution width (RBC) [Ratio]17.6 %11.9-15.3FPremier HealthEstimated glomerular filtration rate (GFR) non- AmericanOrdered By: Fabiola Marinelli on 70-24-7339UHP/1.73 sq M.predicted among non- blacks MDRD (S/P/Bld) [Vol rate/Area]> 60 mL/MinSalem City HospitalGlobulin Calc (S) [Mass/Vol]Ordered By: Fabiola Marinelli on 42-83-9617Tqpiypeg (S) [Mass/Vol]2.0 g/dLSalem City HospitalHematocrit Auto (Bld) [Volume fraction]Ordered By: Fabiola Marinelli on 67-56-0833Qdexpewnmc (Bld) [Volume fraction]33.7 %34.0-46.4FPremier HealthHemoglobin [Mass/volume] in BloodOrdered By: Fabiola Marinelli on 88-42-1002Wbpwbxawkq (Bld) [Mass/Vol]11.1 g/dL11.8-15.4FPremier HealthLymphocytes Auto (Bld) [#/Vol]Ordered By: Fabiola Marinelli on 31-69-6557Juouysqbcno (Bld) [#/Vol]0.7 10*3/uL1.00-4.8[facility] HospitalLymphocytes/100 WBC Auto (Bld) Ordered By: Fabiola Marinelli on 30-20-8648Kulpxfungil/100 WBC (Bld)34.8 %.[facility] CenterH Auto (RBC) [Entitic mass]Ordered By: Fabiola Marinelli on 80-64-6658NDW (RBC) [Entitic mass]33.3 pg24.7-34.3FPremier HealthMCHC Auto (RBC) [Mass/Vol]Ordered By: Fabiola Marinelli on 65-71-5467XELC (RBC) [Mass/Vol]33.0 g/dL32.0-35.0[facility] HospitalMCV Auto (RBC) [Entitic vol]Ordered By: Fabiola Marinelli on 95-34-7823YUC (RBC) [Entitic vol]101.0 fL 80-100[facility] HospitalMonocytes Auto (Bld) [#/Vol]Ordered By: Fabiola Marinelli on 40-45-4999Bofyfzfbr (Bld) [#/Vol]0.2 10*3/uL0.0-0.8[facility] HospitalMonocytes/100 WBC Auto (Bld)Ordered By: Fabiola Marinelli on 70-65-4263Ypvwxqdtj/100 WBC (Bld)12.9 %.[facility] Neutrophils Auto (Bld) [#/Vol]Ordered By: Fabiola Marinelli on 57-42-2948Zgfbvmcvyyb (Bld) [#/Vol]1.0 10*3/uL1.8-7.7FPremier HealthNeutrophils/100 WBC Auto (Bld)Ordered By: Fabiola Marinelli on 22-59-0337Cwuvrzqlfxe/100 WBC (Bld)50.4 % .[facility] HospitalNo Panel InformationOrdered By: Fabiola Marinelli on 21.9 10*3/uL4.5-11.0[facility]0.3 %0-0.5 [facility]> 60 mL/MinSalem City Hospital 124.92[facility] HospitalPlatelet mean volume Auto (Bld) [Entitic vol]Ordered By: Fabiola Marinelli on 99-06-2883Ykvavezd mean volume (Bld) [Entitic vol] 9.5 fL6.3-10.7FPremier HealthPlatelets Auto (Bld) [#/Vol] Ordered By: Fabiola Marinelli on 19-81-2702Junljtffe (Bld) [#/Vol]56 10*3/sW925-263 [facility] HospitalProtein [Mass/volume] in Serum or PlasmaOrdered By: Fabiola Marinelli on 03-69-0912Mvfsmyp [Mass/Vol]5.0 g/dL6.1-7.9[facility] HospitalRBC Auto (Bld) [#/Vol]Ordered By: Fabiola Marinelli on 97-34-0864MKS (Bld) [#/Vol]3.34 10*6/uL3.60-5.00[facility] Instituteerum or plasma alanine aminotransferase measurement without P-5'-P (enzymatic activiOrdered By: Fabiola Marinelli on 16-96-4654RJY No additional P-5'-P [Catalytic activity/Vol]28 U/L [facility] Instituteerum or plasma albumin/globulin mass ratioOrdered By: Fabiola Marinelli on 74-38-0080Jhxgocl/Globulin [Mass ratio]1.5 {ratio} [facility] Instituteerum or plasma alkaline phosphatase measurement (enzymatic activity/volume)Ordered By: Fabiola Marinelli on 96-90-4903SZC [Catalytic activity/Vol]107 U/D57-24DropfafcvRiverview Health Instituteerum or plasma anion gap determinationOrdered By: Fabiola Marinelli on 70-02-8471Rqfsx gap [Moles/Vol]10.1 mmol/L6.0-15.0[facility] Instituteerum or plasma aspartate aminotransferase measurement (enzymatic activity/volume)Ordered By: Fabiola Marinelli on 51-28-8456ASL [Catalytic activity/Vol]25 U/U82-22ShaniuhyaRiverview Health Instituteerum or plasma calcium measurement (mass/volume)Ordered By: Fabiola Marinelli on 96-68-4403Itsyhsc [Mass/Vol]9.3 mg/dL8.2-10.2FSouthview Medical Centererum or plasma chloride measurement (moles/volume)Ordered By: Fabiola Marinelli on 50-24-5350Qzcpjbsb [Moles/Vol]105 mmol/F74-760KhcrvhergRiverview Health Instituteerum or plasma creatinine measurement with calculation of estimated glomerular filtrOrdered By: Fabiola Marinelli on 10-21-5922Zulhreuzwc and Glomerular filtration rate.predicted panel (S/P/Bld)0.46 mg/dL0.44-1.03[facility] Instituteerum or plasma glucose measurement (mass/volume)Ordered By: Fabiola Marinelli on 78-02-6983Soplgmg [Mass/Vol]141 mg/wM72-719VzmvgtrlcRiverview Health Instituteerum or plasma potassium measurement (moles/volume)Ordered By: Fabiola Marinelli on 95-56-1246Dznncezjs [Moles/Vol]3.7 mmol/L3.5-5.1FSouthview Medical Centererum or plasma sodium measurement (moles/volume)Ordered By: Fabiola Marinelli on 04-64-6861Pkoguu [Moles/Vol]138 mmol/O253-011ZwuarviyeSal[facility] City Hospital Serum or plasma total bilirubin measurement (mass/volume)Ordered By: Fabiola Marinelli on 12-50-5462Oikozfmnc [Mass/Vol]1.1 mg/dL0.3-1.2FSouthview Medical Centererum or plasma total carbon dioxide measurement (moles/volume)Ordered By: Fabiola Marinelli on 63-90-8412GD6 [Moles/Vol]26.6 mmol/L22.0-30.0[facility] Instituteerum or plasma urea nitrogen measurement (mass/volume)Ordered By: Fabiola Marinelli on 66-10-6602Rnqt nitrogen [Mass/Vol]14 mg/dL9-23[facility] HospitalWBC Auto (Bld) [#/Vol]Ordered By: Fabiola Marinelli on 74-28-1503NPR (Bld) [#/Vol]1.9 10*3/uL3.8-11.6FPremier HealthBlood anisocytosis detectionOrdered By: Fabiola Marinelli on 98-50-3707Mzoxmpzpqccr Ql (Bld)SlightSalem City HospitalMacrocytes detectionOrdered By: Fabiola Marinelli on 08-15-2022 Macrocytes Ql (Bld)[facility] CampusNo Panel Information Ordered By: Fabiola Marinelli on 28-08-5285KhinpaEnzdlqacrSalem City Hospital DecreasedNormCherrington HospitalNormUniversity Hospitals Port[facility] Medical CenterRBC morphologyOrdered By: Fabiola Marinelli on 62-33-8514EJW morphology finding Nom (Bld)N/AFPremier HealthBasophils Auto (Bld) [#/Vol]Ordered By: Fabiola Marinelli on 60-48-7247Dabycnlov (Bld) [#/Vol]0.0 10*3/uL 0.0-0.2FPremier HealthBasophils/100 WBC Auto (Bld)Ordered By: Fabiola Marinelli on 77-88-9760Fjnnioisf/100 WBC (Bld)0.2 %.[facility] HospitalBlood hemoglobin measurement (mass/volume)Ordered By: Fabiola Marinelli on 13-55-7707Cewnybiijd (Bld) [Mass/Vol]10.5 g/dL11.8-15.4FPremier HealthBlood leukocytes automated count (number/volume)Ordered By: Fabiola Marinelli on 77-36-2385YTF (Bld) [#/Vol]1.7 10*3/uL4.5-11.0[facility] HospitalEosinophils Auto (Bld) [#/Vol]Ordered By: Fabiola Marinelli on 08-12-2022 Eosinophils (Bld) [#/Vol]0.0 10*3/uL0.0-0.45[facility] Eosinophils/100 WBC Auto (Bld)Ordered By: Fabiola Marinelli on 56-22-6368Eeidfdpkqiu/100 WBC (Bld)2.3 %.[facility] HospitalErythrocyte distribution width Auto (RBC) [Ratio]Ordered By: Fabiola Marinelli on 31-76-7249Gznuiyyjsxn distribution width (RBC) [Ratio]17.2 %11.9-15.3FPremier HealthHematocrit Auto (Bld) [Volume fraction]Ordered By: Fabiola Marinelli on 05-42-8997Khsmtokhxa (Bld) [Volume fraction]31.3 %34.0-46.4FPremier HealthLaboratory - Hematology and Cell countsOrdered By: Fabiola Marinelli on 23-18-3815Mgubzwtoo RBC/100 WBC (Bld) [Ratio]0.2 %0-0.5FPremier HealthLymphocytes Auto (Bld) [#/Vol]Ordered By: Fabiola Marinelli on 91-52-1740Twwqyekezpu (Bld) [#/Vol]0.6 10*3/uL1.00-4.8[facility] HospitalLymphocytes/100 WBC Auto (Bld) Ordered By: Fabiola Marinelli on 21-85-3933Jxisloikdxn/100 WBC (Bld)34.2 %.[facility] CenterH Auto (RBC) [Entitic mass]Ordered By: Fabiola Marinelli on 47-63-4018EPN (RBC) [Entitic mass]33.7 pg24.7-34.3FPremier HealthMCHC Auto (RBC) [Mass/Vol]Ordered By: Fabiola Marinelli on 96-38-7909KQXJ (RBC) [Mass/Vol]33.5 g/dL32.0-35.0[facility] HospitalMCV Auto (RBC) [Entitic vol]Ordered By: Fabiola Marinelli on 94-66-3134FPA (RBC) [Entitic vol]100.7 fL 80-100[facility] HospitalMacrocytes detectionOrdered By: Fabiola Marinelli on 41-89-8819Vizqofwmkb Ql (Bld)SlightSalem City HospitalMonocytes Auto (Bld) [#/Vol]Ordered By: Fabiola Marinelli on 16-73-0751Ymejppxyy (Bld) [#/Vol]0.2 10*3/uL0.0-0.8[facility] HospitalMonocytes/100 WBC Auto (Bld) Ordered By: Fabiola Marinelli on 35-51-6537Kswzlzdkp/100 WBC (Bld)10.8 %.[facility] HospitalNeutrophils Auto (Bld) [#/Vol]Ordered By: Fabiola Marinelli on 29-16-4640Yezvjuidlzv (Bld) [#/Vol]0.9 10*3/uL1.8-7.7FPremier HealthNeutrophils/100 WBC Auto (Bld)Ordered By: Fabiola Marinelli on 08-12-2022 Neutrophils/100 WBC (Bld)52.5 %.[facility] HospitalNo Panel InformationOrdered By: Fabiola Marinelli on 67-44-1846Obyhidtl EstimateDecreasedNormal [facility] HospitalPlatelet Morphology CommentNormalNormal [facility] HospitalPlatelet mean volume Auto (Bld) [Entitic vol] Ordered By: Fabiola Marinelli on 86-94-2470Zpkokmdb mean volume (Bld) [Entitic vol]10.1 fL6.3-10.7FPremier HealthPlatelets Auto (Bld) [#/Vol]Ordered By: Fabiola Marinelli on 68-13-4068Ngojmyfcp (Bld) [#/Vol]41 10*3/oT535-892HxzflqszuSalem City HospitalComment on above:Results calledat 1530 on 08/12/22 --- 08/12/22 1530 ---Plt previously reported as: 41 L x10E3/uLRBC Auto (Bld) [#/Vol] Ordered By: Fabiola Marinelli on 32-71-6872PRN (Bld) [#/Vol]3.11 10*6/uL3.60-5.00 [facility] HospitalRBC morphologyOrdered By: Fabiola Marinelli on 18-07-5801RAK morphology finding Nom (Bld)N/AFPremier Health Blood anisocytosis detectionOrdered By: Fabiola Marinelli on 39-96-8839Iwurelmyecbi Ql (Bld)SlightSalem City HospitalOvalocyte detectionOrdered By: Fabiola Marinelli on 89-37-6438Zeontqzvvy LM Ql (Bld)[facility] US Venous, Unilat, Lower Ext Righton 92-90-6503JQ Venous, Unilat, Lower Ext RightCLINICAL HISTORY: Right foot swelling. COMPARISON: None. TECHNIQUE: The right lower extremity veins were evaluated with color Doppler, grayscale imaging, and spectral analysis while using compression and augmentation when possible. FINDINGS: Evaluation of the right lower extremity veins from the thigh to the calf shows normal phasic flow, normal augmentation of the Doppler signal, and normal compression of the deep veins. There is no sonographic evidence for acute deep venous thrombosis from the right groin to the popliteal region. There is no sonographic evidence for acute deep vein thrombosis in the right calf veins. Incidental pulsatile venous waveforms, overall nonspecific but associated with right heart failure. IMPRESSION: No acute DVT of the right lower extremity veins from the groin to the knee. No acute DVT of the right calf veins. Incidental pulsatile venous waveforms, overall nonspecific but associated with right heart failure. This could be better assessed with cardiac ECHO, as clinically indicated. Report reported and signed by Emely Lund on 08/07/2022 1431NoalUniversity Hospitals Health System SpecialistBlood polychromasia detection by light microscopyOrdered By: Fabiola Marinelli on 70-29-5179Tbmpfjalchpwf LM Ql (Bld)[facility] Medical CenterHypochromia detectionOrdered By: Fabiola Marinelli on 08-05-2022 Hypochromia Ql (Bld)[facility] CenterNo Panel Information Ordered By: Fabiola Marinelli on 23-05-1222Tovmnhts CellModerateSalem City HospitalModerateSalem City HospitalNo Panel Information Ordered By: Fabiola Marinelli on 83-98-6717YoniuohjnntogfJlzqbbPibejxptu Regional Medical CenterNo Panel InformationOrdered By: Fabiola Marinelli on 12-30-8432Ninrx PlateletsSAdventHealth Central Pasco ERLymphocytes/100 WBC Auto (Bld)Ordered By: Fabiloa Marinelli on 07-25-2022 Lymphocytes/100 WBC (Bld)15 %18-42[facility] HospitalMonocytes/100 WBC Manual cnt (Bld)Ordered By: Fabiola Marinelli on 22-73-5820Mdyvhptdx/100 WBC (Bld)7 %2-11[facility] Instituteegmented neutrophils/100 WBC Manual cnt (Bld)Ordered By: Fabiola Marinelli on 02-47-9697Acrawnybc neutrophils/100 WBC (Bld)78 % 50-70[facility] HospitalAlbumin [Mass/volume] in Serum or Plasma Ordered By: Fabiola Marinelli on 31-67-2863Xiywsht [Mass/Vol]3.2 g/dL3.2-5.5FPremier HealthCreatinine and Glomerular filtration rate.predicted panel (S/P/Bld)Ordered By: Fabiola Marinelli on 75-32-3433Xibsqqrsdb [Mass/Vol]0.47 mg/dL 0.44-1.03[facility] HospitalEstimated glomerular filtration rate (GFR) non- AmericanOrdered By: Fabiola Marinelli on 84-19-7776GBQ/1.73 sq M.predicted among non-blacks MDRD (S/P/Bld) [Vol rate/Area]> 60 mL/MinSalem City HospitalGlobulin Calc (S) [Mass/Vol]Ordered By: Fabiola Marinelli on 66-32-7731Tscynuua (S) [Mass/Vol]2.0 g/dLSalem City HospitalNo Panel InformationOrdered By: Fabiola Marinelli on 48-66-8852Mgyfsorly GFR ()> 60 mL/MinSalem City HospitalComment on above:GFR estimated reference range: According to KDOQI guidelines, <60 ml/min/1.73m2 is sufficient todiagnose a patient with chronic kidney disease.Pharmacy Creatinine Clearance (Fuhw782.27[facility] HospitalProtein [Mass/volume] in Serum or PlasmaOrdered By: Fabiola Marinelli on 30-24-3302Ewtggfw [Mass/Vol]5.2 g/dL 6.1-7.9[facility] Instituteerum or plasma alanine aminotransferase measurement without P-5'-P (enzymatic activiOrdered By: Fabiola Marinelli on 07-23-2022 ALT No additional P-5'-P [Catalytic activity/Vol]26 U/Y58-92VbwrzkzrdRiverview Health Instituteerum or plasma albumin/globulin mass ratioOrdered By: Fabiola Marinelli on 56-44-4225Cwsedvt/Globulin [Mass ratio]1.6 {ratio}[facility] Instituteerum or plasma alkaline phosphatase measurement (enzymatic activity/volume)Ordered By: Fabiola Marinelli on 18-22-8725DNT [Catalytic activity/Vol] 95 U/V97-84JymowbhsgRiverview Health Instituteerum or plasma anion gap determinationOrdered By: Fabiola Marinelli on 86-80-0031Egycu gap [Moles/Vol]12.1 mmol/L 6.0-15.0[facility] Instituteerum or plasma aspartate aminotransferase measurement (enzymatic activity/volume)Ordered By: Fabiola Marinelli on 03-44-0304AQG [Catalytic activity/Vol]29 U/A16-10RuhfqagynRiverview Health Instituteerum or plasma calcium measurement (mass/volume)Ordered By: Fabiola Marinelli on 80-39-8008Vjvfxez [Mass/Vol]9.0 mg/dL8.2-10.2FPremier Health Serum or plasma chloride measurement (moles/volume)Ordered By: Fabiola Marinelli on 61-53-0320Ynrdxpjb [Moles/Vol]103 mmol/F71-674QaygnhqghSalem City Hospital Serum or plasma glucose measurement (mass/volume)Ordered By: Fabiola Marinelli on 53-14-6126Swivnxw [Mass/Vol]121 mg/uJ14-284YxyewnjdtSalem City Hospital Comment on above:ADA recommended reference rangeRandom Glucose Reference Range is dependent on time and content of last meal. Glucose of more than 200 mg/dL in a nonstressed, ambulatory subject supports the diagnosisof Diabetes Mellitus. Serum or plasma potassium measurement (moles/volume)Ordered By: Fabiola Marinelli on 86-56-6351Xqpokpdbq [Moles/Vol]3.5 mmol/L3.5-5.1FSouthview Medical Centererum or plasma sodium measurement (moles/volume)Ordered By: Fabiola Marinelli on 87-06-5748Ksiezp [Moles/Vol]138 mmol/B159-223CexvrasxqSalem City Hospital Serum or plasma total bilirubin measurement (mass/volume)Ordered By: Fabiola Marinelli on 10-61-0908Kjozynoru [Mass/Vol]1.3 mg/dL0.3-1.2FPremier HealthComment on above:Samples from patients who have taken Naproxen have shown spurious elevation in Total Bilirubin levels. A metabolite of Naproxen, O- desmethylnaproxen, has been shown to interfere with the Shanon-Felicitas method for measuring Total Bilirubin.Serum or plasma total carbon dioxide measurement (moles/volume)Ordered By: Fabiola Marinelli on 88-98-5538UH7 [Moles/Vol]26.4 mmol/L 22.0-30.0[facility] Instituteerum or plasma urea nitrogen measurement (mass/volume)Ordered By: Fabiola Marinelli on 62-57-3308Iwhl nitrogen [Mass/Vol]10 mg/dL9-23[facility] HospitalAlbumin [Mass/volume] in Serum or PlasmaOrdered By: Fabiola Marinelli on 19-98-9618Escpusw [Mass/Vol]3.1 g/dL 3.2-5.5FPremier HealthBasophils Auto (Bld) [#/Vol]Ordered By: Fabiola Marinelli on 70-91-8660Yblirnvhw (Bld) [#/Vol]0.0 10*3/uL0.0-0.2FPremier HealthBasophils/100 WBC Auto (Bld)Ordered By: Fabiola Marinelli on 17-67-0793Wzgoxaobz/100 WBC (Bld)0.6 %.[facility] HospitalBlood anisocytosis detectionOrdered By: Fabiola Marinelli on 76-88-4974Pcknlukxvloz Ql (Bld) ModerateSalem City HospitalBlood hemoglobin measurement (mass/volume)Ordered By: Fabiola Marinelli on 11-94-6903Vrycrcjgsn (Bld) [Mass/Vol]11.9 g/dL11.8-15.4FPremier HealthBlood leukocytes automated count (number/volume)Ordered By: Fabiola Marinelli on 38-14-6190PVT (Bld) [#/Vol]2.1 10*3/uL 3.8-11.6FPremier HealthCreatinine and Glomerular filtration rate.predicted panel (S/P/Bld)Ordered By: Fabiola Marinelli on 82-71-4685Ydubjxjwxj [Mass/Vol]0.51 mg/dL0.44-1.03[facility] HospitalEosinophils Auto (Bld) [#/Vol]Ordered By: Fabiola Marinelli on 05-22-4401Nyhgptcovxb (Bld) [#/Vol]0.1 10*3/uL0.0-0.45[facility] HospitalEosinophils/100 WBC Auto (Bld) Ordered By: Fabiola Marinelli on 53-67-5468Nhlznowrwdk/100 WBC (Bld)5.4 %.[facility] HospitalErythrocyte distribution width Auto (RBC) [Ratio]Ordered By: Fabiola Marinelli on 58-10-6602Griwcpdjyji distribution width (RBC) [Ratio]16.0 % 11.9-15.3FPremier HealthEstimated glomerular filtration rate (GFR) non- AmericanOrdered By: Fabiola Marinelli on 47-35-3679CIL/1.73 sq M.predicted among non-blacks MDRD (S/P/Bld) [Vol rate/Area]> 60 mL/MinSalem City HospitalGlobulin Calc (S) [Mass/Vol]Ordered By: Fabiola Marinelli on 72-83-0150Bhiwdryc (S) [Mass/Vol]2.0 g/dLSalem City Hospital Hematocrit Auto (Bld) [Volume fraction]Ordered By: Fabiola Marinelli on 07-10-2022 Hematocrit (Bld) [Volume fraction]35.3 %34.0-46.4FPremier HealthLaboratory - Hematology and Cell countsOrdered By: Fabiola Marinelli on 07-10-2022 Nucleated RBC/100 WBC (Bld) [Ratio]0.1 %0-0.5FPremier Health Lymphocytes Auto (Bld) [#/Vol]Ordered By: Fabiola Marinelli on 23-90-1402Ptoxojjvbjk (Bld) [#/Vol]1.2 10*3/uL1.00-4.8[facility] HospitalLymphocytes/100 WBC Auto (Bld)Ordered By: Fabiola Marinelli on 59-76-5967Unvwevjusis/100 WBC (Bld)57.9 %.[facility] HospitalMCH Auto (RBC) [Entitic mass]Ordered By: Fabiola Marinelli on 90-63-2316OAN (RBC) [Entitic mass]33.6 pg24.7-34.3FPremier HealthMCHC Auto (RBC) [Mass/Vol]Ordered By: Fabiola Marinelli on 02-55-7839UKCZ (RBC) [Mass/Vol]33.7 g/dL32.0-35.0[facility] HospitalMCV Auto (RBC) [Entitic vol]Ordered By: Fabiola Marinelli on 02-67-0313DCX (RBC) [Entitic vol] 99.7 iT27-433EdqooxhwbSalem City HospitalMonocytes Auto (Bld) [#/Vol] Ordered By: Fabiola Marinelli on 20-93-8067Wdltqdcdt (Bld) [#/Vol]0.2 10*3/uL0.0-0.8 [facility] HospitalMonocytes/100 WBC Auto (Bld)Ordered By: Fabiola Marinelli on 99-51-1629Nbubkifis/100 WBC (Bld)7.9 %.[facility] HospitalNeutrophils Auto (Bld) [#/Vol]Ordered By: Fabiola Marinelli on 07-10-2022 Neutrophils (Bld) [#/Vol]0.6 10*3/uL1.8-7.7FPremier Health Neutrophils/100 WBC Auto (Bld)Ordered By: Fabiola Marinelli on 46-92-3791Kbuxdntsism/100 WBC (Bld)28.2 %.[facility] HospitalNo Panel InformationOrdered By: Fabiola Marinelli on 51-97-8808Lodvgisvf GFR ()> 60 mL/MinSalem City HospitalComment on above:GFR estimated reference range: According to KDOQI guidelines, <60 ml/min/1.73m2 is sufficient todiagnose a patient with chronic kidney disease.Pharmacy Creatinine Clearance (Otbu203.74[facility] HospitalPlatelet EstimateDecreasedThe Jewish HospitalPlatelet Morphology CommentNormalNormCherrington HospitalPoikilocytosisSlightSalem City Hospital2.1 10*3/uL4.5-11.0 [facility]0.1 %0-0.5FPremier Health SlightSalem City HospitalDecreasedNormCherrington HospitalNormalNormCherrington Hospital> 60 mL/MinSalem City Hospital108.74[facility] HospitalOvalocyte detectionOrdered By: Fabiola Marinelli on 54-86-5407Mfdzvvoqig LM Ql (Bld)Slight [facility] City HospitalPlatelet mean volume Auto (Bld) [Entitic vol] Ordered By: Fabiola Marinelli on 16-63-3172Tlfaaxyt mean volume (Bld) [Entitic vol]8.6 fL6.3-10.7FPremier HealthPlatelets Auto (Bld) [#/Vol]Ordered By: Fabiola Marinelli on 47-12-7123Ishzomgym (Bld) [#/Vol]53 10*3/zZ787-875DuqjrbsktSalem City HospitalProtein [Mass/volume] in Serum or PlasmaOrdered By: Fabiola Marinelli on 53-51-7832Vuixbzv [Mass/Vol]5.1 g/dL6.1-7.9[facility] HospitalRBC Auto (Bld) [#/Vol]Ordered By: Fabiola Marinelli on 25-23-2774XQX (Bld) [#/Vol] 3.54 10*6/uL3.60-5.00[facility] HospitalRB morphologyOrdered By: Fabiola Marinelli on 44-39-5776KVQ morphology finding Nom (Bld)N/AFSouthview Medical Centererum or plasma alanine aminotransferase measurement without P-5'-P (enzymatic activiOrdered By: Fabiola Marinelli on 28-98-6493QZY No additional P-5'-P [Catalytic activity/Vol]24 U/D26-57CztcjlfdkRiverview Health Instituteerum or plasma albumin/globulin mass ratioOrdered By: Fabiola Marinelli on 07-10-2022 Albumin/Globulin [Mass ratio]1.6 {ratio}Riverview Health Instituteerum or plasma alkaline phosphatase measurement (enzymatic activity/volume)Ordered By: Fabiola Marinelli on 26-74-9216ONY [Catalytic activity/Vol]100 U/U50-18RgkbjatojRiverview Health Instituteerum or plasma anion gap determinationOrdered By: Fabiola Marinelli on 09-62-1709Eztmp gap [Moles/Vol]11.3 mmol/L6.0-15.0Riverview Health Instituteerum or plasma aspartate aminotransferase measurement (enzymatic activity/volume)Ordered By: Fabiola Marinelli on 72-86-0474KGE [Catalytic activity/Vol] 28 U/P02-94QaxvnsmvzRiverview Health Instituteerum or plasma calcium measurement (mass/volume)Ordered By: Fabiola Marinelli on 72-78-3943Hwyoeph [Mass/Vol]8.8 mg/dL 8.2-10.2FSouthview Medical Centererum or plasma chloride measurement (moles/volume)Ordered By: Fabiola Marinelli on 68-44-9428Rkcxdtom [Moles/Vol]103 mmol/L 95-114Riverview Health Instituteerum or plasma creatinine measurement with calculation of estimated glomerular filtrOrdered By: Fabiola Marinelli on 79-60-2794Yzxwvymyso and Glomerular filtration rate.predicted panel (S/P/Bld) 0.51 mg/dL0.44-1.03Riverview Health Instituteerum or plasma glucose measurement (mass/volume)Ordered By: Fabiola Marinelli on 31-36-6479Vmnvbat [Mass/Vol] 116 mg/sS76-061JddqrasybSalem City HospitalComment on above:ADA recommended reference range Random Glucose Reference Range is dependent on time and content of last meal. Glucose of more than 200 mg/dL in a nonstressed, ambulatory subject supports the diagnosis of Diabetes Mellitus.Serum or plasma potassium measurement (moles/volume)Ordered By: Fabiola Marinelli on 28-29-9149Vwogmruyn [Moles/Vol]3.7 mmol/L 3.5-5.1FSouthview Medical Centererum or plasma sodium measurement (moles/volume)Ordered By: Fabiola Marinelli on 15-93-1446Wspwap [Moles/Vol]139 mmol/L 136-146Riverview Health Instituteerum or plasma total bilirubin measurement (mass/volume)Ordered By: Fabiola Marinelli on 66-89-9316Yollmmrst [Mass/Vol] 0.9 mg/dL0.3-1.2FSouthview Medical Centererum or plasma total carbon dioxide measurement (moles/volume)Ordered By: Fabiola Marinelli on 23-24-1794AK1 [Moles/Vol]28.4 mmol/L22.0-30.0Riverview Health Instituteerum or plasma urea nitrogen measurement (mass/volume)Ordered By: Fabiola Marinelli on 23-65-1753Bnyp nitrogen [Mass/Vol]8 mg/dL9-23Sal[facility] HospitalIgA [Mass/volume] in Serum or PlasmaOrdered By: Fabiola Marinelli on 96-90-9363WnP [Mass/Vol]44 mg/dL 87-352Sal[facility] City HospitalComment on above:Result confirmed on concentration.IgG [Mass/volume] in Serum or PlasmaOrdered By: Fabiola Marinelli on 23-18-1201UrR [Mass/Vol]463 mg/wJ474-2315OsbqhkbktSalem City HospitalIgM [Mass/volume] in Serum or PlasmaOrdered By: Fabiola Marinelli on 19-92-0113OpJ [Mass/Vol]17 mg/xN24-528FwvqubumySalem City HospitalComment on above:Result confirmed on concentration. Performed at: [facility] [id number] Aeronautical Design Engineer: Lang Knight PhD, Phone: [phone] confirmed on concentration.Performed at: [address] [id number] Director: Lang Knight PhD, Phone: [phone] light chains.kappa.free [Mass/volume] in SerumOrdered By: Fabiola Marinelli on 07-04-2022 Immunoglobulin light chains.kappa.free (S) [Mass/Vol]10.6 mg/L3.3-19.4FPremier HealthImmunoglobulin light chains.kappa.free/Immunoglobulin light chains.lambda.free [MassOrdered By: Fabiola Marinelli on 59-54-9141Vxsjtzyobncpci light chains.kappa.free/Immunoglobulin light chains.lambda.free (S) [Mass ratio] 0.080.26-1.65Sal[facility] City HospitalComment on above:Performed at: [address] [id number] Aeronautical Design Engineer: Lang Knight PhD, Phone: [phone] at: [address] [id number] Director: Lang Knight PhD, Phone: [phone] light chains.lambda.free [Mass/volume] in Serum or PlasmaOrdered By: Fabiola Marinelli on 09-75-4756Kfagxozgwaitfx light chains.lambda.free [Mass/Vol]125.7 mg/L5.7-26.3FPremier Health Erythrocyte [place] body detectionOrdered By: Fabiola Marinelli on 06-04-2022 [place] bodies LM Ql (Bld)[facility] CenterHowell- [place] bodies LM Ql (Bld)Erythrocyte [place] body detectionSalem City HospitalNo Panel InformationOrdered By: Fabiola Marinelli on 03-28-2022 Large PlateletsSlightRiverview Health InstitutelightSalem City HospitalTeardrop cell detectionOrdered By: Fabiola Marinelli on 03-28-2022 Dacrocytes LM Ql (Bld)[facility] Albumin/Protein.total in 24 hour Urine by ElectrophoresisOrdered By: Fabiola Marinelli on 25-85-5433Izayyvc Elph (24H U) [Mass fraction]27.0 %.[facility] HospitalAlbumin Elph (24H U) [Mass fraction]Albumin/Protein.total in 24 hour Urine by Electrophoresis.[facility] HospitalGamma globulin/Protein.total in 24 hour Urine by ElectrophoresisOrdered By: Fabiola Marinelli on 36-65-1113Onhea globulin Elph (24H U) [Mass fraction]14.0 %.[facility] HospitalGamma globulin Elph (24H U) [Mass fraction]Gamma globulin/Protein.total in 24 hour Urine by Electrophoresis.[facility] HospitalNo Panel InformationOrdered By: Fabiola Marinelli on 89-00-4807Irmav Random Prot Electrophor NoteSee comment.[facility] HospitalComment on above:Protein electrophoresis scan will follow via computer, mail, or insulation batting machine operator delivery. Performed at: [facility] [id number] Aeronautical Design Engineer: Lang Knight PhD, Phone: [phone] electrophoresis scan will follow via computer,mail, or insulation batting machine operator delivery.Performed at: - [facility] [address] [id number] Director: Lang Knight PhD, Phone: [phone] comment.[facility] Protein [Mass/volume] in UrineOrdered By: Fabiola Marinelli on 32-32-8174Etzcufp (U) [Mass/Vol]mg/dLNot Estab.[facility] HospitalComment on above: Verified by repeat analysisProtein (U) [Mass/Vol]Protein [Mass/volume] in UrineNot Estab.[facility] HospitalProtein.monoclonal/Protein.total in 24 hour Urine by ElectrophoresisOrdered By: Fabiola Marinelli on 03-26-2022 Protein.monoclonal Elph (24H U) [Mass fraction]Not observed %Not Observed [facility] HospitalProtein.monoclonal Elph (24H U) [Mass fraction] Protein.monoclonal/Protein.total in 24 hour Urine by ElectrophoresisNot Observed [facility] HospitalUrine alpha 1 globulin/total protein by electrophoresisOrdered By: Fabiola Marinelli on 73-59-7808Taihw 1 globulin Elph (U) [Mass fraction]13.6 %.[facility] HospitalAlpha 1 globulin Elph (U) [Mass fraction]Urine alpha 1 globulin/total protein by electrophoresis.[facility] HospitalUrine alpha 2 globulin/total protein ratio by electrophoresisOrdered By: Fabiola Marinelli on 19-57-0425Hzzuj 2 globulin Elph (U) [Mass fraction]23.5 %.[facility] HospitalAlpha 2 globulin Elph (U) [Mass fraction]Urine alpha 2 globulin/total protein ratio by electrophoresis. [facility] HospitalUrine beta globulin measurement by electrophoresis (mass/volume)Ordered By: Fabiola Marinelli on 87-08-4323Vouq globulin Elph (U) [Mass/Vol]21.9 %.[facility] HospitalBeta globulin Elph (U) [Mass/Vol]Urine beta globulin measurement by electrophoresis (mass/volume). [facility] HospitalAlbumin [Mass/volume] in Serum or PlasmaOrdered By: Fabiola Marinelli on 58-60-8925Zgolwxw [Mass/Vol]3.2 g/dL2.9-4.4FPremier HealthAlbumin [Mass/Vol]Albumin [Mass/volume] in Serum or Plasma2.9-4.4 [facility] HospitalLactate dehydrogenase measurement (enzymatic activity/volume)Ordered By: Fabiola Marinelli on 62-23-0605MWD (Unsp spec) [Catalytic activity/Vol]179 U/T09-603UmgjyoonzSalem City HospitalLD (Unsp spec) [Catalytic activity/Vol]Lactate dehydrogenase measurement (enzymatic activity/volume)45-190[facility] HospitalNo Panel Information Ordered By: Fabiola Marinelli on 18-75-7147Smtogot Electrophoresis M-SpikeComment: g/dL Not ObservedSalem City HospitalComment on above:SPE shows an asymmetrical gamma.Protein Electrophoresis NoteSee comment.[facility] HospitalComment on above:Protein electrophoresis scan will follow via computer, mail, or insulation batting machine operator delivery. Performed at: [employer] [facility] [place] [id number] Aeronautical Design Engineer: Lang Knight PhD, Phone: [phone] electrophoresis scan will follow via computer,mail, or insulation batting machine operator delivery.Performed at: [employer] [facility] [employer] [address] [id number] Director: Lang Knight PhD, Phone: [phone]: g/dLNot ObservedRiverview Health Instituteee comment.[facility] HospitalProtein [Mass/volume] in Serum or PlasmaOrdered By: Fabiola Marinelli on 31-42-5547Ueiqmda [Mass/Vol]5.1 g/dL Low6.0-8.5FPremier HealthProtein [Mass/Vol]Protein [Mass/volume] in Serum or PlasmaLow6.0-8.5FSouthview Medical Centererum globulin measurement (mass/volume)Ordered By: Fabiola Marinelli on 89-80-9901Icczmxjj (S) [Mass/Vol]1.9 g/dLLow2.2-3.9[facility] HospitalGlobulin (S) [Mass/Vol]Serum globulin measurement (mass/volume)Low2.2-3.9Riverview Health Instituteerum or plasma albumin/globulin mass ratioOrdered By: Fabiola Marinelli on 35-51-3636Ppodfbk/Globulin [Mass ratio]1.7 {ratio}0.7-1.7FPremier HealthAlbumin/Globulin [Mass ratio]Serum or plasma albumin/globulin mass ratio0.7-1.7FSouthview Medical Centererum or plasma alpha 1 globulin measurement by electrophoresis (mass/volume)Ordered By: Fabiola Marinelli on 03-25-2022 Alpha 1 globulin Elph [Mass/Vol]0.3 g/dL0.0-0.4FPremier Health Alpha 1 globulin Elph [Mass/Vol]Serum or plasma alpha 1 globulin measurement by electrophoresis (mass/volume)0.0-0.4FSouthview Medical Centererum or plasma alpha 2 globulin measurement by electrophoresis (mass/volume)Ordered By: Fabiola Marinelli on 04-64-6145Visbx 2 globulin Elph [Mass/Vol]0.6 g/dL0.4-1.0[facility] HospitalAlpha 2 globulin Elph [Mass/Vol]Serum or plasma alpha 2 globulin measurement by electrophoresis (mass/volume)0.4-1.0Riverview Health Instituteerum or plasma beta globulin measurement by electrophoresis (mass/volume)Ordered By: Fbaiola Marinelli on 47-16-6975Lfiu globulin Elph [Mass/Vol]0.7 g/dL0.7-1.3FPremier HealthBeta globulin Elph [Mass/Vol]Serum or plasma beta globulin measurement by electrophoresis (mass/volume)0.7-1.3 [facility] Instituteerum or plasma gamma globulin measurement by electrophoresis (mass/volume)Ordered By: Fabiola Marinelli on 17-81-9588Knmra globulin Elph [Mass/Vol]0.4 g/dL0.4-1.8[facility] HospitalGamma globulin Elph [Mass/Vol]Serum or plasma gamma globulin measurement by electrophoresis (mass/volume)0.4-1.8[facility] HospitalMacrocytes detectionOrdered By: Fabiola Marinelli on 95-77-8630Lqjrnnkrik Ql (Bld)SlightSalem City HospitalNo Panel InformationOrdered By: Fabiola Marinelli on 98-83-8235Mbpyj ImmunofixationSee comment.[facility] HospitalComment on above: Immunofixation shows IgG monoclonal protein with kappa light chain specificity. Please note that samples from patients receiving DARZALEX(R) (daratumumab) treatment can appear as an IgG kappa and mask a complete response. If this patient is receiving JENNIFER, this VAHID assay interference can be removed by ordering test number [id number]- Immunofixation, Daratumumab- Specific, Serum and submitting a new sample for testing or by calling the lab to add this test to the current sample.Immunofixation shows IgG monoclonal protein with kappalight chain specificity.Please note that sampl es from patients receivingDARZALEX(R) (daratumumab) treatment can appear as an IgGkappa and mask a complete response. If this patient isreceiving JENNIFER, this VAHID assay interference can be removedby ordering test number [id number]- Immunofixation, Daratumumab-Specific, Serum and submitting a new sample for testing orby calling the lab to add this test to the current sample.See comment Abnormal.[facility] Surgical Pathology Departmenton 25-43-1833VPD Surgical Pathology DepartmentName MOJGAN PÉREZ Pathologist: INOCENCIA TSANG MD Date of Procedure: 10/07/2021 Date Received: 10/07/2021 Date Reported 10/08/2021 Submitting Physician: PITER BENAVIDEZ MD Location: [facility] Other External # [id number] FINAL DIAGNOSIS A AND B: BONE MARROW, ASPIRATE WITH CLOT AND CORE BIOPSY WITH TOUCH IMPRINT, SITE UNSPECIFIED ([facility], [id number] ( 05/03/2021): --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 NOTE: Per [facility] report, a 0.2% CD56+, CD138+, CD38-, lambda+ monoclonal plasma cell population was detected. Plasma cells are 1.5% by differential count. Megakaryocytes are slightly reduced and there is granulocytic hypoplasia. No dysplasia is identified. Genetic/Molecular performed previously by [facility]: -Chromosome analysis: Per report, normal 46,XX karyotype -FISH: Per report, positive for gain 1q and deletion 13q. Negative for del(1p, t(4;14), t(11;14), t(14;16), t(14;20), del(17p)(TP53).) -Molecular testing not performed. Differential: (Normal) % Promyelocytes (1-5) 4.0 Myelocytes (5-10) 9.5 Metamyelocytes (10-25) 7.5 Bands (10-20) 5.5 Segmented forms (5-30) 7.5 Eosinophils (2-4) 6.0 Basophils (0-1) 0.5 Lymphocytes (5-25) 23.0 Monocytes (0-2) 2.0 Plasma Cells (0-2) 1.5 Blasts (0-1) 0.5 Total Erythroid (17-35) 33.0 Number of cells counted: 200 Cellularity: Cellular M:E Ratio: 1.23 The gross and/or microscopic findings were reviewed in conjunction with pathology resident, Hussein Valencia M.D. Electronically Signed Out By INOCENCIA TSANG MD/THUY By the signature on this report, the individual or group listed as making the Final Interpretation/Diagnosis certifies that they have reviewed this case. Intraoperative Consultation: [facility], [id number] ( 05/03/2021): Microscopic Description: CBC: WBC 3.6 x 10E9/L, RBC 4.10 x 10E12/L, Hgb 12.5 g/dl, Hct 37.2%, MCV 90.8 fL, RDW 24.2%, platelets 46 x 10E9/L. A 100 cell manual differential count reveals: polys 32%, lymphocytes 59%, monocytes 4%, eosinophils 5%. PERIPHERAL SMEAR: Submitted Red cells: Mild anisocytosis with rare teardrop cells. White cells: Leukopenia with absolute neutropenia. Rare granular lymphocyte. Platelets: Thrombocytopenia. Normal morphology. ASPIRATE SMEAR: Submitted Specimen: Paucispicular. Erythropoiesis: Normal maturation. Granulopoiesis: Normal, but relatively decreased Megakaryocytes: Present. Morphology: Few small forms. TOUCH PREP: Submitted Specimen: Cellular. Comments: Similar to aspirate smear. ASPIRATE CLOT: Submitted Specimen: Spicular. Cellularity: 30%. Comments: Similar to core biopsy. CORE BIOPSY: Submitted Specimen: Adequate. Cellularity: 30%. Estimated M:E ratio: Consistent with aspirate smear. Bony trabeculae: Normal. Megakaryocytes: Slightly decreased. Morphology: Normal. Granulomas: Absent. Lymphoid aggregates: Absent. Comments: Subcortical SPECIAL STAINS: Iron: Storage iron adequate; no ring sideroblasts identified. Congo red: Negative for amyloid. IMMUNOHISTOCHEMISTRY: Performed at [facility]. CD34: No increase in CD34+ blasts. CD31: Highlights vessels and slightly decreased megakaryocytes. CD3: Highlights scattered and few small clusters of T cells CD20: Highlights scattered B cells CD138: Highlights roughly 2% plasma cells CD56: Highlights rare cells. Cyclin D1: Appears negative in plasma cells. FLOW CYTOMETRY: Performed at [facility]. Per report, 0.2% CD56+, CD138+, CD38-, lambda+ monoclonal plasma cell population detected. Additionally, an atypical CD10+, CD19+ B cell population (1.7%) is identified with a subset expressing CD34 skewed towards kappa. This population is favored to be hematogones. Immunostains were performed in addition to flow cytometry to fully characterize the phenotype, architecture, and extent of the atypical population(s). This was medically necessary for the best possible diagnosis. Clinical History: 65-Year old female on Tx for myeloma, nonalcoholic steatosis ( KAPADIA) decreased platelets; left posterior superior iliac crest Specimens Submitted As: A: [facility], [id number] ( 05/03/2021) Other Case Numbers [id number] Slide/Block Description Received from [facility], Department of Pathology, [address] [place] [address], are Twenty-Two (22) microscopic slides labelled [id number] Keep Slides: N Slides Returned: N Personal Consult: NNFederal Correction Institution HospitalComment on above:Performed By: #### [facility] #### [facility] Surgical Pathology Department [address] [facility] [address]Rhfrb polychromasia detection by light microscopyOrdered By: Fabiola Marinelli on 35-46-3576Oswdzjqmapyer LM Ql (Bld)[facility] CenterCTA CHEST (GATED) W IVCONon 14-56-0701CAE CHEST (GATED) W IVCON* * *Final Report* * * DATE OF EXAM: Aug 01 2021 2:18PM [facility] 0125 - CTA CHEST (GATED) W IVCON / PROCEDURE REASON: I71.2-Thoracic aortic aneurysm without rupture (HCC) * * * * Physician Interpretation * * * * Examination: CTA of the chest dated 08/01/2021 2:18 PM Comparison: CT 04/21/2019 History: 65 old female with thoracic aortic aneurysm here for surgical planning. Technique: ECG synchronized images thoracic aorta. A low-osmolar contrast agent was used (90 cc of Omnipaque 350). CT Dose-Length Product (DLP): [address] Dose Reduction Employed: Automated exposure control (AEC) For optimization of anatomic evaluation, multiplanar reconstruction, maximum intensity projections, and advanced 3-D off-line postprocessing were performed on a dedicated stand-alone workstation by the interpreting physician. RESULT: Potential study limitations: None. CHEST: Right Mediport catheter with tip to right atrium. The chest wall is unremarkable. There is no significant adenopathy noted in the axillae, mediastinum, and licha, 9 mm short axis lymph node paradiaphragmatic region series 4 image 138, stable. The pericardium and pulmonary arteries appear normal. Central airways patent with mild retained secretions, mild atelectasis/scar at mid to basal levels, no consolidation or effusion. The cardiac chambers demonstrate normal atrioventricular and ventriculoarterial concordance, and systemic and pulmonary venous return. Mild right atrial dilation, mildly prominent appearing RV. The coronary arteries have normal origins and courses. There are diffuse coronary calcifications identified, though this study was not optimized for coronary artery evaluation. VASCULAR WITH ADVANCED 3-D OFF-LINE POSTPROCESSING: Aortic valve morphology is trileaflet, and free from calcifications, mild thickening with small central regurgitant orifice. Aortic root 3.5 cm, preserved sinotubular junction, 4.1 cm midascending aorta, 2.8 cm arch, 2.5 cm mid descending. There are subtle calcific changes of the sinotubular junction, mild calcific changes of aortic arch, arch branch vessels, and descending thoracic segments. The limited images of the upper abdomen reveal prior cholecystectomy, focal calcific changes within the spleen. Degenerative changes in the spine. Calcific changes of imaged visceral branch vessels. . IMPRESSION: Mild dilation midascending thoracic aorta, 4.1 cm Coronary artery calcific changes Electron Beam Photo Mask Maker: PSCWatson Transcribe Date/Time: Aug 01 2021 2:05P Dictated by : LAKEISHA CASTANEDA MD This examination was interpreted and the report reviewed and electronically signed by: LAKEISHA CASTANEDA MD on Aug 01 2021 2:26PM EST [id number] Orrville HospitalGlucose Glucometer (BldC) [Mass/Vol] Ordered By: Fabiola Marinelli on 21-19-9526Jayztqs [Mass/Vol]179 mg/dLSalem City HospitalComment on above:Random Glucose Reference Range is dependent on time and content of last meal. Glucose of more than 200 mg/dL in a nonstressed, ambulatory subject supports the diagnosis of Diabetes Mellitus.Glucose [Mass/Vol]Capillary blood glucose measurement by glucometer (mass/volume) [facility] HospitalNo Panel InformationOrdered By: Fabiola Marinelli on 94-50-4905Uibczfm Glucose #2 CommentWill notify /[facility] HospitalBedside Glucose #3 CommentCleaned [facility] Bedside Glucose CommentSee [facility]rbana HospitalComment on above:Glu2: Will Repeat TestSee [facility]rb[facility] HospitalWill notify /[facility] HospitalCleaned [facility] CenterCT biopsyOrdered By: Fabiola Marinelli on 45-47-6668WJ zmrfyu332 mg/dL 180-380Sal[facility] City HospitalTransferrin [Mass/Vol]215 mg/uB203-243 [facility] HospitalFerritin [Mass/volume] in Serum or Plasma Ordered By: Fabiola Marinelli on 49-09-9998Uveikosp [Mass/Vol]268.6 ng/nT91-185.8 [facility] HospitalIron [Mass/volume] in Serum or PlasmaOrdered By: Fabiola Marinelli on 97-23-4427Favy [Mass/Vol]100 ug/fR78-596IwzuhttqqSalem City HospitalIron binding capacity [Mass/volume] in Serum or PlasmaOrdered By: Fabiola Marinelli on 36-33-6377Nuvb binding capacity [Mass/Vol]301 ug/pG493-849XdtgtjxfuSalem City HospitalIron saturation [Mass Fraction] in Serum or Plasma Ordered By: Fabiola Marinelli on 25-84-2097Vjxd saturation [Mass fraction]33.0 %20-50 [facility] HospitalCholesterol [Mass/volume] in Serum or Plasmaon 63-25-2207Kaylmoykgpf [Mass/Vol]109 mg/vTSwt311-746IszyoxdzlSalem City HospitalComment on above:Chol less than 200 mg/dl low risk Chol 201-239 mg/dl borderline risk Chol 240 mg/dl and greater high riskChol less than 200 mg/dl low riskChol 201- 239 mg/dl borderline riskChol 240 mg/dl and greater high riskCholesterol [Mass/Vol]Cholesterol [Mass/volume] in Serum or VlrxnhJnm828-992NwraecgtySalem City HospitalCholesterol in LDL Calc [Mass/Vol]on 03-18-2021 Cholesterol in LDL [Mass/Vol]50 mg/dL0-100[facility] Comment on above:LDL ATP III CLASSIFICATION LDL less than 100 mg/dL Optimal LDL 100-129 mg/dL Near or above optimal LDL 130-159 mg/dL Borderline high LDL 160-189 mg/dL High LDL greater than 189 mg/dL Very highLDL ATP III CLASSIFICATIONLDL less than 100 mg/dL OptimalLDL 100-129 mg/dL Near or above ccmqedqIGS715-723 mg/dL Borderline highLDL 160-189 mg/dL HighLDL greater than 189 mg/dL Very highCholesterol in LDL [Mass/Vol]Cholesterol in LDL [Mass/volume] in Serum or Plasma by calculation 0-100[facility] HospitalCholesterol in VLDL Calc [Mass/Vol]on 84-39-0858Tobrbhrrtur in VLDL [Mass/Vol]10 mg/dLSalem City HospitalCholesterol in VLDL [Mass/Vol]Cholesterol in VLDL [Mass/volume] in Serum or Plasma by calculationSalem City HospitalCreatinine [Mass/volume] in Urineon 18-95-0972Iuhmfuzloy (U) [Mass/Vol]166.0 mg/dLSalem City HospitalComment on above:No reference range established Creatinine (U) [Mass/Vol]Creatinine [Mass/volume] in UrineSalem City HospitalFolate [Mass/volume] in Serum or Plasmaon 81-19-4417Gprkob [Mass/Vol]21.1 ng/mL>5.9Salem City HospitalComment on above:Folate reference range: >5.9 ng/ml The WHO technical consultation on folate and vitamin b12 deficiencies has determined that folate concentrations less than 4 ng/ml are considered deficient.Folate reference range: >5.9 ng/mlThe WHO technical consultation on folate and vitamin e53lfxgbashppxn has determined that folate concentrations lessthan 4 ng/ml are considered deficient.Laboratory - Chemistry and Chemistry - challengeon 81-16-8396Oenxmwwqv (Vitamin B12) [Mass/Vol]779 pg/gC256-199FqnewjuemSalem City HospitalMicroalbumin [Mass/volume] in Urineon 22-75-0755Rsbhkod DL <= 20 mg/L (U) [Mass/Vol] Microalbumin [Mass/volume] in Urine0.0-1.8[facility] City HospitalNo Panel Informationon 92-99-5934912 pg/sY296-562SglkzybglSalem City Hospital Serum or plasma high density lipoprotein (HDL) cholesterol measurementon 30-38-2016Llpfnzttflb in HDL [Mass/Vol]49 mg/gW07-90OhmeizjxiSalem City HospitalComment on above:HDL CHOL ATP-III CLASSIFICATION Cardiovascular Risk HDL > or equal to 60 mg/dL LOW HDL < 40 mg/dL HIGHHDL CHOL ATP-III CLASSIFICATION Cardiovascular RiskHDL > or equal to 60 mg/dL LOWHDL < 40 mg/dL HIGHCholesterol in HDL [Mass/Vol]Serum or plasma high density lipoprotein (HDL) cholesterol tjkcndsvuvn17-18DwgpcpwskRiverview Health Instituteerum or plasma total cholesterol/high density lipoprotein (HDL) cholesterol mass brenda 53-89-1946Ohpwyykqfqg.total/Cholesterol in HDL [Mass ratio]2.2 {ratio}<5.0[facility] Cholesterol.total/Cholesterol in HDL [Mass ratio]Serum or plasma total cholesterol/high density lipoprotein (HDL) cholesterol mass rat<5.0[facility] City HospitalTriglyceride [Mass/volume] in Serum or Plasmaon 87-03-4877Wwnqzlqkhyeb [Mass/Vol]51 mg/gL48-241Ufrtuimkx[address] [place] [address] Comment on above:TRIG ATP III CLASSIFICATION TRIG less than 150 mg/dL Normal TRIG 150-199 mg/dL Borderline high TRIG 200-500 mg/dL High TRIG greater than 500 mg/dL Very high Standard traceable to the Center for Disease Conrtrol and Prevention (CDC) test method.TRIG ATP III CLASSIFICATIONTRIG less than 150 mg/dL NormalTRIG 150-199 mg/dL Borderline highTRIG 200-500 mg/dL High TRIG greater than 500 mg/dL Very highStandard traceable to the Center for Disease Conrtrol and Prevention (CDC) test method.Triglyceride [Mass/Vol]Triglyceride [Mass/volume] in Serum or Plasma -149Salem City HospitalUrine microalbumin measurement with detection limit of 20 mg/L or less (mass/volume)on 77-74-6635Kbniwow DL <= 20 mg/L (U) [Mass/Vol]1.1 mg/dL0.0-1.8Sal[facility] City HospitalUrine microalbumin/creatinine mass ratioon 27-35-8421Arytzof/Creatinine DL <= 20 mg/L (U) [Mass ratio]6.0 mg/g0.0-30.0Sal[facility] City HospitalComment on above:30-300 mg/g indicates an increased risk for diabetic nephropathy. Greater than 300 mg/g is consistent with clinical nephropathy. (Am. J. Kidney Disease 1995, 25:107)Albumin/Creatinine DL <= 20 mg/L (U) [Mass ratio]Urine microalbumin/creatinine mass ratio0.0-30.0[facility] Laboratory - Hematology and Cell countson 54-92-8128ZLC (Bld) [#/Vol]2.9 10*3/uL 4.5-11.0[facility] HospitalNo Panel Informationon 12.9 10*3/uLLow4.5-11.0[facility] HospitalImmunofixation for Urineon 86-47-2040Agkynrufnrsuqv Immunofixation (U) [Interp]See comment.Salem City HospitalComment on above:No monoclonality detected. Performed at: betNOW[address] [id number] Aeronautical Design Engineer: Lang Knight PhD, Phone: [phone] monoclonality detected.Performed at: VMTurbo[address] [id number] Director: Lang Knight PhD, Phone: [phone] Immunofixation (U) [Interp]Immunofixation for Urine.[facility] HospitalHypochromia detectionon 86-86-2507Onhpenuwydl Ql (Bld)SlightSalem City HospitalDaratumumab Molecular Genotypeon 22-83-0697Jlzcjmosqzw Molecular GenotypeNoAtrium Health Cabarrus Physician GroupComment on above:Result Comment: Specimen sent to [facility] for further testing on 04/05/20.PERFORMED BY:[place] [address] [place] [phone] MEDICAL DIRECTORWEI HARE M.D. Direct [place] 51-25-8569Nwekayfbcyfp GNCape Coral Hospital Physician GroupComment on above:Result Comment: PERFORMED BY:[place] [address] [place] [phone] MEDICAL DIRECTORWEI HARE M.D.BASIC METABOLIC PANELon 20-74-4200Izntg gap [Moles/Vol] 10 mmol/CDysjkg57 - 20St. [facility] CenterComment on above:Performed By: #### BMP #### [address] [address]Jzakfcd [Mass/Vol]8.5 mg/dLLow8.6 - 10.3St. [facility] CenterComment on above:Performed By: #### BMP #### [address] [address]Kztaochz [Moles/Vol]105 mmol/ZKdxlqm02 - 107St. [facility] CenterComment on above:Performed By: #### BMP #### [address] [address]Udiwwevqzp [Mass/Vol]0.46 mg/dLLow0.50 - 1.05St. [facility] CenterComment on above:Performed By: #### BMP #### [address] [address]HMG-DBDQOJM AM.>60Normal>60St. [facility] CenterComment on above:Result Comment: CALCULATIONS OF ESTIMATED GFR ARE PERFORMED USING THE MDRD STUDY EQUATION FOR THE IDMS-TRACEABLE CREATININE METHODS. CLIN CHEM 2007;53:766-72Performed By: #### BMP #### [address] [address]BVE-TVJ AM.>60Normal>60St. [facility] CenterComment on above:Performed By: #### BMP #### [address] [address]Xiiwzlv [Mass/Vol]124 mg/fSScfe45 - 99[facility] Comment on above:Performed By: #### BMP #### [address] [place], [place] [address]LVS1 (Bld) [Moles/Vol]28 mmol/NGozdnv10 - 32St. [facility] CenterComment on above:Performed By: #### BMP #### [address] [place], [place] [address]Kyeexfapx [Moles/Vol]3.9 mmol/LNormal3.5 - 5.3St. [facility] CenterComment on above:Performed By: #### BMP #### [address] [address]Gczltw [Moles/Vol]139 mmol/ESgdhjn089 - 145St. [facility] CenterComment on above:Performed By: #### BMP #### [address] [address]Ycdv nitrogen [Mass/Vol]15 mg/dLNormal6 - 23St. [facility] CenterComment on above:Performed By: #### BMP #### [address] [address]KFMex 22-75-5940Jowfzcjraqs distribution width (RBC) [Ratio] 18.1 %High11.5 - 14.5St. [facility] CenterComment on above:Performed By: #### CBC #### [address] [address]Edfqieufhp (Bld) [Volume fraction]35.0 %Low36.0 - 46.0St. [facility] CenterComment on above:Performed By: #### CBC #### [address] [address]Nwvjerbxlb (Bld) [Mass/Vol]11.2 g/dLLow12.0 - 16.0St. [facility] CenterComment on above:Performed By: #### CBC #### [address] [place], [place] [address]FBMB (RBC) [Mass/Vol]32.0 g/kHYxmgks85.0 - 36.0St. [facility] CenterComment on above:Performed By: #### CBC #### [address] [address]UYM (RBC) [Entitic vol]90 jXKwenxq74 - 100St. [facility] CenterComment on above:Performed By: #### CBC #### [address] [address]Pmosjmttr RBC/100 WBC (Bld) [Ratio]0.0 /100 WBCNormal0.0 - 0.0 [facility]plex – NormanComment on above:Performed By: #### CBC #### [address] [address]Lzfzkmoeb (Bld) [#/Vol]54 10*3/lBPvg717 - 450St. [facility] CenterComment on above:Performed By: #### CBC #### [address] [address]DCS (Bld) [#/Vol]3.89 x10E12/LLow4.00 - 5.20St. [facility] CenterComment on above:Performed By: #### CBC #### [address] [address]IUA (Bld) [#/Vol]3.4 10*3/uLLow4.4 - 11.3St. [facility] CenterComment on above:Performed By: #### CBC #### [address] [address]ZINXWPCFSIA 2019, SCREEN ASYMPTOMATICon 33-21-2342LPRSFLRXPEZ 2019,PCRNOT DETECTEDNormalNot DetectedSt. [facility] Medical CenterComment on above: Result Comment: This assay is designed to detect the RdRp gene of SARS-CoV-2 via nucleic acid amplification. A Not Detected result does not preclude COVID-19 infection since the adequacy of sample collection and/or low viral burden may result in presence of viral nucleic acids below the clinical sensitivity of this test method. Fact sheet for providers: www.fda.gov/media/065334/download Fact sheet for patients: www.fda.gov/media/737063/download This test has received FDA Emergency Use Authorization (EUA) and has been verified by [facility]. This test is only authorized for the duration of time that circumstances exist to justify the authorization of the emergency use of in vitro diagnostic tests for the detection of SARS-CoV-2 virus and/or diagnosis of COVID-19 infection under section 564(b)(1) of the Act, 21 U.S.C. 360bbb-3(b)(1), unless the authorization is terminated or revoked sooner. [facility] is certified under CLIA-88 as qualified to perform high complexity testing. Testing is performed in the [facility] laboratory located at [address] [place] [address].Performed By: #### COVSC #### [address] [address]Pfu Specimen SourceNasal, NasopharyngealNormalSt. 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 COMPARISON: None. ACCESSION NUMBER(S): [id number] ORDERING CLINICIAN: FABIOLA MARINELLI TECHNIQUE: INTERVENTIONALIST(S): Дмитрий Flores MD CONSENT: The patient was informed of the nature of the proposed procedure. The purposes, alternatives, risks, and benefits were explained and discussed. All questions were answered and consent was obtained. RADIATION EXPOSURE: Dose: 25 mGy SEDATION: Moderate conscious IV sedation services (supervision of administration, induction, and maintenance) were provided by the physician performing the procedure with intravenous fentanyl 100 mcg IV and versed 2 mg IV for 22 minutes ([id number]). The physician was assisted by an independent trained observer, an interventional radiology nurse, in the continuous monitoring of patient level of consciousness and physiologic status. MEDICATION/CONTRAST: No additional TIME OUT: A time out was performed immediately prior to procedure start with the interventional team, correctly identifying the patient name, date of , MRN, procedure, anatomy (including marking of site and side), patient position, procedure consent form, relevant laboratory and imaging test results, antibiotic administration, safety precautions, and procedure-specific equipment needs. COMPLICATIONS: No immediate adverse events identified. FINDINGS: Maximum sterile barrier technique was implemented. In the recumbent position, the patient was positioned on the angiography table. The right supraclavicular and infraclavicular cutaneous tissues were prepared and draped in usual sterile manner. The supraclavicular access site was screened with cortez-scale ultrasound with subsequent subcutaneous instillation of Lidocaine 1% local anesthesia. Ultrasound images demonstrate a patent right internal jugular vein. Under direct ultrasound guidance and Seldinger/micropuncture technique, the right internal jugular vein was accessed. An ultrasound digital spot image was acquired and stored on the PACS. After confirmation of location, a 018 [place]-Mandril guidewire was inserted to secure location. The guidewire was advanced into the inferior vena cava utilizing intermittent fluoroscopy. The micro-access needle was removed over the guidewire. Utilizing a 5-on-4 coaxial dilator sheath system, upsize to a 035 3-J guidewire was performed. Subsequent access tract dilation was performed to an eventual 8.5-Bulgarian peel-away sheath dilator system. Following Lidocaine 1% local anesthesia, a superolateral Mediport pocket was created in the subcutaneous infraclavicular chest wall. The Mediport pocket was irrigated with normal saline and prophylactic antibiotics. A subcutaneous tract was then created from the Mediport pocket to the venous access site. The 8-Bulgarian port catheter was introduced maintaining continuity from the Mediport pocket to the venous access site and into the central venous system. An optimal length of catheter was measured with the tip at the right atrial/superior vena caval junction. The catheter was trimmed to the optimal length and the external portion was connected to the Mediport reservoir hub. After insertion into the Mediport pocket, a Chavez needle was then utilized to access the reservoir to assess for leaks, evaluate for aspiration and flushability. The Mediport was then irrigated with low-dose heparinized saline. A fluoroscopic spot image of the chest was acquired in the AP projection to confirm optimal course and location of the subcutaneous and central venous catheter. In addition, optimal orientation and continuity to the Mediport reservoir were identified. After confirmation of optimal Mediport functioning, the Mediport pocket site was closed with subcutaneous absorbable Polysorb sutures in addition to cutaneous subcuticular closure. Sterile dressings were then placed at the Mediport reservoir and venotomy access site. The patient tolerated the procedure without complication. IMPRESSION: 1. Uncomplicated placement of a right infraclavicular single-lumen Cdvdkymc-8-Ndiiab catheter tip residing at the cavoatrial junction. 2. CT power-injection compatible Mediport. 3. MRI-compatible Mediport. Optimal functioning device and ready for utilization. I was present for and/or performed the critical portions of the procedure and immediately available throughout the entire procedure. Performed and dictated at [facility]. Electronically signed by: Janneth PLAZA. [facility] CenterPT/INRon 16-22-0216DXY Coag (PPP) [Relative time]1.3 {INR}High0.9 - 1.1 [facility] – NormanComment on above:Performed By: #### PTINR #### [address] [place], [place] [address]QG Coag (PPP) [Time]14.5 sHigh9.7 - 12.7St. [facility] Medical CenterComment on above:Performed By: #### PTINR #### [address] [address]Tyqqe Board Noteon 53-80-6306Tubrz Board NoteNote: Tumor Board Note MOJGAN PÉREZ was presented at [facility] Tumor Board Conference on 15-Mar-2020 by (Dr. Fabiola Marinelli). Impression: History of KAPADIA. 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 Repeat bone marrow March 2020 showed plasma cell myeloma, 40-50% plasma cells. Recommendations: Jennifer/dex. Consider adding low dose revlimid or velcade. Disclaimer [facility] tumor board recommendations represent the consensus opinion of physicians present at a weekly patient care conference. The treating [facility] physician is not always present, and many of the physicians formulating the recommendation have not personally seen or examined the patient under discussion. It is understood that the treating [facility] physician considers the expertise of the Tumor Board Recommendation in formulating his/her plan for the patient. However, in many situations, based on individualized patient considerations, a different plan is determined by the treating physician to be the optimal medical management. Electronic Signatures: Nandini Flores (PT REG) (Signed 16-Mar-2020 17:29) Authored: Tumor Board, Disclaimer Last Updated: 16-Mar-2020 17:29 by Nandini Flores (PT REG)[facility] - Chemistry and Chemistry - challengeon 37-85-3340Hwguyfhsm [Mass/Vol]1.8 mg/dL1.6-2.6FPremier HealthNo Panel Information on 03-12-20201.8 mg/dL1.6-2.6FPremier HealthPROGRESSon 02-39-0147MYJNINVWJGL ID: [id number] Author: Jessica Flores Service: Radiology Author Type: Senior Clinical Consultant Type: Progress Notes Filed: 12/07/2019 11:02 AM Note Text: Radiology Service Progress Note PATIENT NAME: Mojgan Pérez DATE OF SERVICE: December 07, 2019 TIME: 11:02 AM PATIENT IDENTITY VERIFICATION COMPLETED USING TWO (2) IDENTIFIERS: Name and Date of confirmed by patient verbally. PATIENT GENDER DATA: Female. status: : No status: N/A PATIENT RELEVANT IMPLANT DATA REVIEWED: Not Applicable RADIOLOGY DEPARTMENT: Ultrasound PERIPHERAL IV DATA: Not applicable SIGNED BY: Jessica Flores RDMS-RVT December 07, 2019 11:02 AMNormalAvon HospitalUS ABD RIGHT UPPER QUADRANTon 44-91-5987VI ABD RIGHT UPPER QUADRANT* * *Final Report* * * DATE OF EXAM: Dec 07 2019 11:06AM U 1032 - US ABD RIGHT UPPER QUADRANT / PROCEDURE REASON: Other cirrhosis of liver (HCC) * * * * Physician Interpretation * * * * EXAMINATION: RIGHT UPPER QUADRANT AND SPLEEN ULTRASOUND CLINICAL HISTORY: Cirrhosis of liver TECHNIQUE: Sonography of the right upper quadrant and spleen was performed. Images were obtained and stored in a permanent archive. MQ: URUQ_1 COMPARISON: Ultrasound 04/22/2019 RESULT: Pancreas: Normal sonographic appearance. Portions obscured: tail Liver: Echotexture: Coarse Echogenicity: Increased Surface contour: Nodular Lesions: No obvious lesions. Biliary: No intrahepatic biliary duct dilation. CBD: 0.3 cm at the hilum. Gallbladder: Prior cholecystectomy Right Kidney: No hydronephrosis. 9.6 cm. Spleen: 10.2 x 9.6 x 6.0 cm. No focal splenic lesions. Ascites: None. IMPRESSION: Cirrhotic hepatic morphology. No obvious hepatic lesions. Electron Beam Photo Mask Maker: CARMEL Transcribe Date/Time: Dec 07 2019 11:10A Dictated by : LETTY WALLACE MD This examination was interpreted and the report reviewed and electronically signed by: LETTY WALLACE MD on Dec 07 2019 11:12AM EST [id number] Specialty Hospital-PontiacUS ABD SPLEEN -NBon 72-91-4666PT ABD SPLEEN -NB* * *Final Report* * * DATE OF EXAM: Dec 07 2019 11:06AM U 1232 - US ABD SPLEEN -NB / PROCEDURE REASON: Other cirrhosis of liver (HCC) * * * * Physician Interpretation * * * * EXAMINATION: RIGHT UPPER QUADRANT AND SPLEEN ULTRASOUND CLINICAL HISTORY: Cirrhosis of liver TECHNIQUE: Sonography of the right upper quadrant and spleen was performed. Images were obtained and stored in a permanent archive. MQ: URUQ_1 COMPARISON: Ultrasound 04/22/2019 RESULT: Pancreas: Normal sonographic appearance. Portions obscured: tail Liver: Echotexture: Coarse Echogenicity: Increased Surface contour: Nodular Lesions: No obvious lesions. Biliary: No intrahepatic biliary duct dilation. CBD: 0.3 cm at the hilum. Gallbladder: Prior cholecystectomy Right Kidney: No hydronephrosis. 9.6 cm. Spleen: 10.2 x 9.6 x 6.0 cm. No focal splenic lesions. Ascites: None. IMPRESSION: Cirrhotic hepatic morphology. No obvious hepatic lesions. Electron Beam Photo Mask Maker: [facility] Transcribe Date/Time: Dec 07 2019 11:10A Dictated by : LETTY WALLACE MD This examination was interpreted and the report reviewed and electronically signed by: LETTY WALLACE MD on Dec 07 2019 11:12AM EST [id number] HospitalRed blood cell stomatocyte detectionon 84-88-6157Geylrcncdzzj LM Ql (Bld)SlightSalem City Hospital Stomatocytes LM Ql (Bld)Red blood cell stomatocyte detectionRiverview Health Instituteerum or plasma uxvm-0-zjlahgwkytctg measurement (mass/volume)on 78-42-2519Ixpi-2-Microglobulin [Mass/Vol]1.9 ug/mL0.6-2.4FPremier HealthComment on above:Siemens Immulite 2000 Immunochemiluminometric assay (ICMA) Values obtained with different assay methods or kits cannot be used interchangeably. Results cannot be interpreted as absolute evidence of the presence or absence of malignant disease. Performed at: [address] [id number] Aeronautical Design Engineer: Maxine Briones MD, Phone: [phone] Immulite 2000 Immunochemiluminometric assay (ICMA)Values obtained with different assay methods or kits cannotbe used interchangeably. Results cannot be interpreted asabsolute evidence of the presence or absence of malignantdisease.Performed at: [address] [id number] Director: Maxine Briones MD, Phone: [phone]-9-Igbdvijdtvylv [Mass/Vol]Serum or plasma uwpc-5-ksctvyrxtores measurement (mass/volume)0.6-2.4FPremier HealthIgA [Mass/volume] in Serum or Plasmaon 99-25-7748YnE [Mass/Vol]336 mg/dL 87-352Sal[facility] City HospitalIgA [Mass/Vol]IgA [Mass/volume] in Serum or Rwmrqd44-370FdbegjiwjSalem City HospitalIgG [Mass/volume] in Serum or Plasmaon 95-00-8207YxR [Mass/Vol]1174 mg/vJ292-7852DfxkbjmxlSalem City HospitalIgG [Mass/Vol]IgG [Mass/volume] in Serum or Ayinnr482-7529OusnocofqSalem City HospitalIgM [Mass/volume] in Serum or Plasmaon 71-29-6840ViP [Mass/Vol]75 mg/kC04-546QnlheywonSalem City HospitalComment on above: Performed at: VMTurbo[address] [id number] Aeronautical Design Engineer: Lang Knight PhD, Phone: [phone] at: [address] [id number] Director: Lang Knight PhD, Phone: [phone] [Mass/Vol]IgM [Mass/volume] in Serum or Lprsms69-951 [facility] HospitalGlucose mean value [Mass/volume] in Blood Estimated from glycated hemoglobinon 93-57-7752Ubloysx glucose Estimated from glycated hemoglobin (Bld) [Mass/Vol]180 mg/dLSalem City Hospital Average glucose Estimated from glycated hemoglobin (Bld) [Mass/Vol]Glucose mean value [Mass/volume] in Blood Estimated from glycated hemoglobinSalem City HospitalHbA1c (Bld)on 78-48-8542TlF6e (Bld) [Mass fraction]7.9 % High4.3-5.6FPremier HealthComment on above:Increased risk for diabetes: 5.7 - 6.4 diabetes: >6.4 glycemic control for adults with diabetes: <7.0Increased risk for diabetes: 5.7 - 6.4diabetes: >6.4glycemic control for adults with diabetes: <7.0Laboratory on 62-80-6544OpM3u (Bld)High4.3-5.6FSouthview Medical Centererum or plasma 25-hydroxycalciferol measurement (mass/volume)on 49-12-439164- hydroxyvitamin D2 [Mass/Vol]12 ng/mL.[facility]25- hydroxyvitamin D2 [Mass/Vol]Serum or plasma 25-hydroxycalciferol measurement (mass/volume).Riverview Health Instituteerum or plasma 25-hydroxyvitamin D measurement (mass/volume)on 45-79-521194548301-fjvjlkxttgwfkr D [Mass/Vol]22 ng/mL Low.[facility] HospitalComment on above:Reference Range: All Ages: Target levels 30 - 100Reference Range:All Ages: Target levels 30 - 100 25-hydroxyvitamin D [Mass/Vol]Serum or plasma 25-hydroxyvitamin D measurement (mass/volume)Low.Riverview Health Instituteerum or plasma calcidiol measurement (mass/volume)on 36-20-218807326591-rrtlkfdxsmtngu D3 [Mass/Vol]10 ng/mL. [facility] HospitalComment on above:Performed at: [facility] [address] [place] [id number] Aeronautical Design Engineer: Dwayne Hobbs MD, Phone: [phone] at: ES - [employer] [address] [place] [id number] Director: Dwayne Hobbs MD, Phone: [phone]-rzpfyoksolrsok D3 [Mass/Vol]Serum or plasma calcidiol measurement (mass/volume).[facility] Vital Signs Date TimeVital SignValuePerforming VhcstznbsLjtubsfi24-55-4978 14:32-0400Body vqvizy250 cmDahoward Torresuitt DO Work Phone: [phone] [place], [place] [address]110-21-2025 14:32-0400Body mass index (BMI) [Ratio]34.19 kg/f2Bpdobi Nuvia DO Work Phone: [phone] [place], [place] [address]Yljlgxsgop81-69-1122 14:32-0400Body temperature 97.7 [degF]Emely Torresuitt DO Work Phone: [phone] [place], [place] [address]Wukvrhhdac15-41-8109 14:32-0400Body albuvj62.54 kgDahoward Torresuitt DO Work Phone: [phone] [place], [place] [address]110-21-2025 14:32-0400Diastolic blood mm[Hg]Emely Torresuitt DO Work Phone: [phone] [place], [place] [address]110-21-2025 14:32-0400Heart rate79 /min Emely Torresuitt DO Work Phone: [phone])[facility] [place], [place] [address]Knmgacxfwi14-54-8187 14:32-0400Respiratory rate20 /minDsandeepjose manuel TorresNuvia DO Work Phone: [phone] [place], [place] [address]-21-2025 14:32-1462TwI5% (BldA) [Mass fraction]98 %Emely Narayanant DO Work Phone: [phone] [place] [address]-21-2025 14:32-0400Systolic blood hzaoyeav026 mm[Hg]Emely Narayanant DO Work Phone: [phone] [place], [place] 34[address]110-15-2025 08:15-0400Body temperature 97.8 [degF]Yinka Lopez MD Work Phone: [phone] [place], [place] 1348910-15-2025 08:15-0400 Body .31 kgYinka Lopez MD Work Phone: [phone] [address] [place], [place] 1348910-15-2025 08:15-0400 Diastolic blood wobuldge22 mm[Hg]Yinka Lopez MD Work Phone: 1(323)[address] [place], [place] 1348910-15-2025 08:15-0400 Heart rate76 /Markus Lopez MD Work Phone: 1(074)[address] [place], [place] 1348910-15-2025 08:15-0400 Respiratory rate16 /Markus Lopez MD Work Phone: 1(625)[address] [place] 1348910-15-2025 08:15-0400 SaO2% (BldA) [Mass fraction]98 %Yinka Lopez MD Work Phone: 1(134)[address] [place] 1348910-15-2025 08:15-0400 Systolic blood wizthpqw21 mm[Hg]Yinka Lopez MD Work Phone: 1(568)[address] [place], [place] 1348909-25-2025 10:26-0400 Body yvalue947.48 cmYinka Lopez MD Work Phone: 1(147)[address] [place], [place] 1348909-25-2025 10:26-0400 Body mass index (BMI) [Ratio]34.7 kg/z5EcuzzYinka Lopez MD Work Phone: 1(901)[address] [place], [place] 1348909-25-2025 10:26-0400 Body yxzrzpukxxf09.7 [degF]Yinka Lopez MD Work Phone: 1(771)[address] [place], [place] 1348909-25-2025 10:26-0400 Body tgogma55.18 kgYinka Lopez MD Work Phone: 1(628)[address] [place], [place] 1348909-25-2025 10:26-0400 Diastolic blood zzeccunj08 mm[Hg]Yinka Lopez MD Work Phone: 1(138)[address] [place], [place] 1348909-25-2025 10:26-0400 Heart rate77 /Makrus Lopez MD Work Phone: 1(555)[address] [place], [place] 1348909-25-2025 10:26-0400 Respiratory rate16 /Markus Lopez MD Work Phone: 1(262)[address] [place], [place] 1348909-25-2025 10:26-0400 SaO2% (BldA) [Mass fraction]97 %Yinka Lopez MD Work Phone: 1(944)[address] [place], [place] 1348909-25-2025 10:26-0400 Systolic blood dwuakcww01 mm[Hg]Yinka Lopez MD Work Phone: 1(587)[address] [place], [place] 1348909-18-2025 11:04-0400 Body ppctdzogvsi15 [degF]Yinka Lopez MD Work Phone: 1(075)[address] [place], [place] 1348909-18-2025 11:04-0400 Diastolic blood thexqmvw01 mm[Hg]Yinka Lopez MD Work Phone: 1(827)[address] [place], [place] 1348909-18-2025 11:04-0400 Heart rate79 /Markus Lopez MD Work Phone: 1(880)[address] [place], [place] 1348909-18-2025 11:04-0400 Respiratory rate18 /Markus Lopez MD Work Phone: 1(175)[address] [place], [place] 1348909-18-2025 11:04-0400 SaO2% (BldA) [Mass fraction]97 %Yinka Lopez MD Work Phone: 1(613)[address] [place], [place] 1348909-18-2025 11:04-0400 Systolic blood zdfyesrw13 mm[Hg]Yinka Lopez MD Work Phone: 1(981)[address] [place], [place] 1348909-17-2025 12:13-0400 Body .48 cmYinka Lopez MD Work Phone: 1(285)[address] [place], [place] 1348909-17-2025 12:13-0400 Body rabkxepjlfx32.1 [degF]Yinka Lopez MD Work Phone: 1(907)[address] [place], [place] 1348909-17-2025 12:13-0400 Body fikqxy72.27 kgYinka Lopez MD Work Phone: 1(066)[address] [place], [place] 1348909-17-2025 12:13-0400 Diastolic blood zfbmgebn98 mm[Hg]Yinka Lopez MD Work Phone: 1(958)[address] [place], [place] 1348909-17-2025 12:13-0400 Heart rate77 /Markus Lopez MD Work Phone: 1(990)[address] [place], [place] 1348909-17-2025 12:13-0400 Respiratory rate18 /Markus Lopez MD Work Phone: 1(593)[address] [place], [place] 1348909-17-2025 12:13-0400 SaO2% (BldA) [Mass fraction]96 %Yinka Lopez MD Work Phone: 1(535)[address] [place], [place] 1348909-17-2025 12:13-0400 Systolic blood ehwxfkwd237 mm[Hg]Yinka Lopez MD Work Phone: 1(258)[address] [place], [place] 1348909-17-2025 10:30-0400 Body fbovsnrfitr67.8 [degF]Yinka Lopez MD Work Phone: 1(549)[address] [place], [place] 1348909-17-2025 10:30-0400 Diastolic blood ftgfldxi93 mm[Hg]Yinka Lopez MD Work Phone: 1(515)[address] [place], [place] 1348909-17-2025 10:30-0400 Heart rate76 /Markus Lopez MD Work Phone: 1(172)[address] [place], [place] 1348909-17-2025 10:30-0400 Respiratory rate18 /Markus Lopez MD Work Phone: 1(852)[address] [place], [place] 1348909-17-2025 10:30-0400 SaO2% (BldA) [Mass fraction]97 %Yinka Lopez MD Work Phone: 1(107)[address] [place], [place] 1348909-17-2025 10:30-0400 Systolic blood nmdbcung627 mm[Hg]Yinka Lopez MD Work Phone: 1(784)[address] [place], [place] 1348909-11-2025 12:45-0400 Body .45 kgYinka Lopez MD Work Phone: 1(555)[address] [place], [place] 1348908-14-2025 10:37-0400 Body .48 cmYinka Lopez MD Work Phone: 1(944)[address] [place], [place] 1348908-14-2025 10:37-0400 Body bzstgopchvb53.8 [degF]Yinka Lopez MD Work Phone: 1(731)[address] [place], [place] 1348908-14-2025 10:37-0400 Body jxzbjo63.09 kgYinka Lopez MD Work Phone: 1(940)[address] [place], [place] 1348908-14-2025 10:37-0400 Diastolic blood gzlvkguy12 mm[Hg]Yinka Lopez MD Work Phone: 1(047)[address] [place], [place] 1348908-14-2025 10:37-0400 Heart rate79 /minYinka Lopez MD Work Phone: 1(865)[address] [place], [place] 1348908-14-2025 10:37-0400 Respiratory rate20 /minYinka Lopez MD Work Phone: 1(043)[address] [place], [place] 1348908-14-2025 10:37-0400 SaO2% (BldA) [Mass fraction]97 %Yinka Lopez MD Work Phone: 1(598)[address] [place], [place] 1348908-14-2025 10:37-0400 Systolic blood mm[Hg]Yinka Lopez MD Work Phone: 1(208)[address] [place], [place] 1348908-14-2025 09:34-0400 Body .48 cmYinka Lopez MD Work Phone: 1(663)[address] [place], [place] 1348908-14-2025 09:34-0400 Body mass index (BMI) [Ratio]35.1 kg/o2MdhtlYinka Lopez MD Work Phone: 1(864)[address] [place], [place] 1348908-14-2025 09:34-0400 Body okkrhhhvnht98.8 [degF]Yinka Lopez MD Work Phone: 1(156)[address] [place], [place] 1348908-14-2025 09:34-0400 Diastolic blood gzezitwu43 mm[Hg]Yinka Lopez MD Work Phone: 1(582)[address] [place], [place] 1348908-14-2025 09:34-0400 Heart rate79 /minYinka Lopez MD Work Phone: 1(518)[address] [place], [place] 1348908-14-2025 09:34-0400 Respiratory rate16 /minYinka Lopez MD Work Phone: 1(195)[address] [place], [place] 1348908-14-2025 09:34-0400 SaO2% (BldA) [Mass fraction]97 %Yinka Lopez MD Work Phone: 1(085)[address] [place], [place] 1348908-14-2025 09:34-0400 Systolic blood orpsomph10 mm[Hg]Yinka Lopez MD Work Phone: 1(023)[address] [place], [place] 1348908-14-2025 08:47-0400 Body obthid871 cmDaniel Nuvia DO Work Phone: [address] [place], [place] 3466108-14-2025 08:47-0400Body mass index (BMI) [Ratio]34.01 kg/v8Hrxxwy Nuvia DO Work Phone: 1(771)[address] [place] [address]-14-2025 08:47-0400Body temperature 98.01 [degF]Emely Nuvia DO Work Phone: 1(571)[address] [place] [address]-14-2025 08:47-0400Body mmmchi83.09 kgDaniel Nuvia DO Work Phone: 1(065)[address] [place] [address]-14-2025 08:47-0400Diastolic blood aqclzufq33 mm[Hg]Emely Nuvia DO Work Phone: 1(737)[address] [place] [address]-14-2025 08:47-0400Heart rate81 /min Emely Nuvia DO Work Phone: 1(838)[address] [place] [address]-14-2025 08:47-0400Respiratory rate20 /minDaniel Nuvia DO Work Phone: 1(919)[address] [place] [address]-14-2025 08:47-0862AvG8% (BldA) [Mass fraction]98 %Emely Pedersen DO Work Phone: [facility]-6483 08:47-0400Systolic blood hegkviyu537 mm[Hg]Emely Pedersen DO Work Phone: [facility]86-4860 14:04-0400Body kuxsgy968.48 cmYinka Lopez MD Work Phone: 1(505)[address] [place], [place] 1348907-28-2025 14:04-0400 Body mass index (BMI) [Ratio]36.4 kg/k6IkbshYinka Lopez MD Work Phone: 1(421)[address] [place], [place] 1348907-28-2025 14:04-0400 Body tojxyh17.4 kgYinka Lopez MD Work Phone: 1(912)[address] [place], [place] 1348907-28-2025 14:04-0400 Diastolic blood fagcjaod72 mm[Hg]Yinka Lopez MD Work Phone: 1(075)[address] [place], [place] 1348907-28-2025 14:04-0400 Heart rate76 /minYinka Lopez MD Work Phone: 1(814)[address] [place], [place] 1348907-28-2025 14:04-0400 Systolic blood bxszcynx13 mm[Hg]Yinka Lopez MD Work Phone: 1(811)[address] [place], [place] 1348907-17-2025 08:31-0400 Body vmkvmjistay33.3 [degF]Yinka Lopez MD Work Phone: 1(317)[address] [place], [place] 1348907-17-2025 08:31-0400 Body mpodkg24.4 kgYinka Lopez MD Work Phone: 1(670)[address] [place], [place] 1348907-17-2025 08:31-0400 Diastolic blood ysuwpycu28 mm[Hg]Yinka Lopez MD Work Phone: 1(430)[address] [place], [place] 1348907-17-2025 08:31-0400 Heart rate85 /minYinka Lopez MD Work Phone: 1(834)[address] [place], [place] 1348907-17-2025 08:31-0400 Respiratory rate18 /minYinka Lopez MD Work Phone: 1(665)653-53[facility]07-17-2025 08:31-0400 SaO2% (BldA) [Mass fraction]98 %Yinka Lopez MD Work Phone: 1(151)343-64[facility]07-17-2025 08:31-0400 Systolic blood mm[Hg]Yinka Lopez MD Work Phone: 1(794)506-64[facility]07-14-2025 10:02-0400 Body fgztmy350 cmDahoward Nuvia DO Work Phone: 1(383)[address] [place], [place] 3466107-14-2025 10:02-0400Body mass index (BMI) [Ratio]35.25 kg/p2Tmaamx Nuvia DO Work Phone: 1(799)[address] [place], [place] 3466107-14-2025 10:02-0400Body temperature 98.2 [degF]Emely Torresuitt DO Work Phone: 1(172)[address] [place], [place] 3466107-14-2025 10:02-0400Body aabttd75.27 kgDahoward Nuvia DO Work Phone: 1(498)[address] [place], [place] 3466107-14-2025 10:02-0400Diastolic blood opifhpyk77 mm[Hg]Emely Torresuitt DO Work Phone: 1(112)[address] [place], [place] 3466107-14-2025 10:02-0400Heart rate84 /min Emely Nuvia DO Work Phone: 1(125)[address] [place], [place] 3466107-14-2025 10:02-0400Respiratory rate20 /minDaniel Nuvia DO Work Phone: 1(422)[address] [place], [place] 3466107-14-2025 10:02-9933WbU3% (BldA) [Mass fraction]98 %Emely Nuvia DO Work Phone: 1(665)[address] [place], [place] 3466107-14-2025 10:02-0400Systolic blood mm[Hg]Emely Narayanant DO Work Phone: 1(342)[address] [place], [place] 3466106-19-2025 09:30-0400Body ouyaxw81.72 kgYinka Lopez MD Work Phone: 1(612)[address] [place], [place] 1348906-19-2025 08:42-0400 Body ugxltb201.48 cmYinka Lopez MD Work Phone: 1(982)[address] [place], [place] 1348906-19-2025 08:42-0400 Body mass index (BMI) [Ratio]34.5 kg/k6LftwxYinka Lopez MD Work Phone: 1(525)[address] [place], [place] 1348906-19-2025 08:42-0400 Body igxsnpcbkfp04.8 [degF]Yinka Lpoez MD Work Phone: 1(132)[address] [place], [place] 1348906-19-2025 08:42-0400 Body iaejha86.72 kgYinka Lopez MD Work Phone: 1(721)[address] [place], [place] 1348906-19-2025 08:42-0400 Diastolic blood prrvecxb24 mm[Hg]Yinka Lopez MD Work Phone: 1(470)[address] [place], [place] 1348906-19-2025 08:42-0400 Heart rate89 /minYinka Lopez MD Work Phone: 1(680)[address] [place], [place] 1348906-19-2025 08:42-0400 Respiratory rate16 /minYinka Lopez MD Work Phone: 1(408)[address] [place], [place] 1348906-19-2025 08:42-0400 SaO2% (BldA) [Mass fraction]98 %Yinka Lopez MD Work Phone: 1(118)[address] [place], [place] 1348906-19-2025 08:42-0400 Systolic blood rwutvyez95 mm[Hg]Yinka Lopez MD Work Phone: 1(302)[address] [place], [place] 1348906-09-2025 09:54-0400 Body emkuyk470 cmDaniel Nuvia DO Work Phone: 1(647)[address] [place], [place] 2836006-09-2025 09:54-0400Body mass index (BMI) [Ratio]34.01 kg/w5Mepehj Nuvia DO Work Phone: 1(120)[address] [place], [place] 2836006-09-2025 09:54-0400Body temperature 98.2 [degF]Emely Pedersen DO Work Phone: 1(798)[address] [place], [place] 2836006-09-2025 09:54-0400Body guirzi96.09 kgDahoward Pedersen DO Work Phone: 1(613)[facility] [place], [place] [address]Apykfvtwdo29-24-9844 09:54-0400Diastolic blood nnasutef22 mm[Hg]Emely Pedersen DO Work Phone: 1(785)[address] [place], [place] 2836006-09-2025 09:54-0400Heart rate91 /min Emely Pedersen DO Work Phone: 1(851)[address] [place], [place] 2836006-09-2025 09:54-0400Respiratory rate20 /minDstevie Pedersen DO Work Phone: 1(605)[facility] [place], [place] [address]Bbusjkufak89-79-8756 09:54-6249IhF6% (BldA) [Mass fraction]98 %Emely Pedersen DO Work Phone: 1(455)[address] [place], [place] 2836006-09-2025 09:54-0400Systolic blood aqqkzcwh799 mm[Hg]Emely Pedersen DO Work Phone: 1(801)[address] [place], [place] 2836005-28-2025 15:40-0400Body cm Emely Pedersen DO Work Phone: 1(732)[facility] [place], [place] [address]Ojbtkscluz76-85-7905 15:40-0400Body mass index (BMI) [Ratio]33.3 kg/g0Ygawgohoward Narayanant DO Work Phone: 1(019)[address] [place], [place] 2836005-28-2025 15:40-0400Body temperature 98.1 [degF]Emely Pedersen DO Work Phone: 1(875)[address] [place], [place] 2836005-28-2025 15:40-0400Body oturov72.28 kgDahoward Pedersen DO Work Phone: 1(774)[address] [place], [place] 2836005-28-2025 15:40-0400Diastolic blood bquvultz18 mm[Hg]Emely Pedersen DO Work Phone: 1(145)[address] [place], [place] 2836005-28-2025 15:40-0400Heart rate89 /min Emely Pedersen DO Work Phone: 1(409)[address] [place], [place] 2836005-28-2025 15:40-0400Respiratory rate20 /minDanijose manuel Pedersen DO Work Phone: 1(234)[address] [place], [place] 2836005-28-2025 15:40-6749YdI4% (BldA) [Mass fraction]94 %Emely Pedersen DO Work Phone: 1(276)[address] [place], [place] 2836005-28-2025 15:40-0400Systolic blood ovmbxjxs306 mm[Hg]Emely Pedersen DO Work Phone: 1(163)[address] [place], [place] 2836005-27-2025 11:00-0400Body nqxgnasfmhh76 [degF]Yinka Lopez MD Work Phone: 1(038)[address] [place], [place] 1348905-27-2025 11:00-0400 Diastolic blood sswetupn38 mm[Hg]Yinka Lopez MD Work Phone: 1(740)[address] [place], [place] 1348905-27-2025 11:00-0400 Heart rate75 /minYinka Lopez MD Work Phone: 1(943)[address] [place], [place] 1348905-27-2025 11:00-0400 Respiratory rate16 /minYinka Lopez MD Work Phone: 1(865)[address] [place], [place] 1348905-27-2025 11:00-0400 SaO2% (BldA) [Mass fraction]99 %Yinka Lopez MD Work Phone: 1(909)[address] [place], [place] 1348905-27-2025 11:00-0400 Systolic blood ozzzmxsj167 mm[Hg]Yinka Lopez MD Work Phone: 1(077)[address] [place], [place] 1348905-15-2025 09:23-0400 Body wggrne657.48 cmYinka Lopez MD Work Phone: 1(335)[address] [place], [place] 1348905-15-2025 09:23-0400 Body mass index (BMI) [Ratio]34 kg/l6CwtwqYinka Lopez MD Work Phone: 1(082)[address] [place], [place] 1348905-15-2025 09:23-0400 Body ellwsuxiiuv03.8 [degF]Yinka Lopez MD Work Phone: 1(437)[address] [place] 1348905-15-2025 09:23-0400 Body zyyytt11.36 kgYinka Lopez MD Work Phone: 1(688)[address] [place], [place] 1348905-15-2025 09:23-0400 Diastolic blood mljwychh12 mm[Hg]Yinka Lopez MD Work Phone: 1(718)[address] [place] 1348905-15-2025 09:23-0400 Heart rate75 /minYinka Lopez MD Work Phone: 1(335)[address] [place], [place] 1348905-15-2025 09:23-0400 Respiratory rate16 /minYinka Lopez MD Work Phone: 1(766)[address] [place], [place] 1348905-15-2025 09:23-0400 SaO2% (BldA) [Mass fraction]97 %Yinka Lopez MD Work Phone: 1(131)[address] [place], [place] 1348905-15-2025 09:23-0400 Systolic blood zcacuzex688 mm[Hg]Yinka Lopez MD Work Phone: 1(438)[address] [place], [place] 1348905-12-2025 11:57-0400 Body mass index (BMI) [Ratio]32.56 kg/k3YorstlfJoaquina Greer [employer] Work Phone: 1(673)[phone] HospitalVwshalildk77-66-8764 11:57-0400Body temperature 97.81 [degF]Joaquina Greer [employer] Work Phone: 1(413)418[facility]08[facility] HospitalPdtouyenui91-21-2974 11:57-0400Body .37 kgJoaquina Greer [employer]PER[employer]OR Work Phone: 1(836)7992221[facility] HospitalWwvkzvemul56-16-2772 11:57-0400Diastolic blood uwzmmczw58 mm[Hg]Joaquina Greer [employer]PER[employer]OR Work Phone: 1(972)8639972[facility] HospitalNbqbuzfpac48-11-5304 11:57-0400Heart rate83 /min Joaquina Greer [employer] Work Phone: 1(343)5218364[facility] HospitalPzmnqpgzqm52-67-5059 11:57-7482UzG5% (BldA) [Mass fraction]95 %Joaquina Greer [employer] SUPER[employer]OR Work Phone: [facility] HospitalDqnryfczkn72-46-6309 11:57-0400Systolic blood mm[Hg]Joaquina Greer [employer]PER[employer]OR Work Phone: [facility] HospitalKkzgxapybl82-30-5975 09:09-0400Body temperature 98.2 [degF]Yinka Lopez MD Work Phone: 1(395)[address] [place], [place] 1348905-06-2025 09:09-0400 Diastolic blood kcyuodoa23 mm[Hg]Yinka Lopez MD Work Phone: 1(403)[address] [place], [place] 1348905-06-2025 09:09-0400 Heart rate73 /minYinka Lopez MD Work Phone: 1(839)[address] [place], [place] 1348905-06-2025 09:09-0400 Respiratory rate18 /minYinka Lopez MD Work Phone: 1(054)[address] [place], [place] 1348905-06-2025 09:09-0400 SaO2% (BldA) [Mass fraction]97 %Yinka Loepz MD Work Phone: 1(385)[address] [place], [place] 1348905-06-2025 09:09-0400 Systolic blood zylyzubh61 mm[Hg]Yinka Lopez MD Work Phone: 1(248)[address] [place], [place] 1348904-30-2025 13:51-0400 Body wryxzb833 cmDabamel Nuvia DO Work Phone: 1(743)[address] [place], [place] 2836004-30-2025 13:51-0400Body mass index (BMI) [Ratio]31.89 kg/p2Lvwodc Nuvia DO Work Phone: 1(243)[address] [place], [place] 2836004-30-2025 13:51-0400Body temperature 97.7 [degF]Emely Nuvia DO Work Phone: 1(601)[address] [place], [place] 2836004-30-2025 13:51-0400Body .65 kgDahoward Nuvia DO Work Phone: 1(649)[address] [place], [place] 2836004-30-2025 13:51-0400Diastolic blood tezbxhvr21 mm[Hg]Emely Pedersen DO Work Phone: 1(732)[facility]37[facility] HospitalHolxhhukui63-28-8007 13:51-0400Heart rate87 /min Emely Pedersen DO Work Phone: 1(051)[facility]99[facility] HospitalMmsnkkymnd85-32-7897 13:51-0400Respiratory rate20 /minDstevie Pedersen DO Work Phone: 1(701)[address] [place], [place] 2836004-30-2025 13:51-1793HoS9% (BldA) [Mass fraction]97 %Emely Pedersen DO Work Phone: 1(388)[address] [place], [place] 2836004-30-2025 13:51-0400Systolic blood meyunzcb963 mm[Hg]Emely Pedersen DO Work Phone: 1(869)[address] [place], [place] 2836004-15-2025 14:38-0400Body coorgd452.48 cmYinka Lopez MD Work Phone: 1(002)[address] [place], [place] 1348904-15-2025 14:38-0400 Body mass index (BMI) [Ratio]33.6 kg/a6JpafsYinka Lopez MD Work Phone: 1(265)[address] [place], [place] 1348904-15-2025 14:38-0400 Body wiozhrktuoo54.9 [degF]Yinka Lopez MD Work Phone: 1(873)[address] [place], [place] 1348904-15-2025 14:38-0400 Body swcisd50.46 kgYinka Lopez MD Work Phone: 1(442)[address] [place], [place] 1348904-15-2025 14:38-0400 Diastolic blood fgciiukv38 mm[Hg]Yinka Lopez MD Work Phone: 1(221)[address] [place], [place] 1348904-15-2025 14:38-0400 Heart rate84 /minYinka Lopez MD Work Phone: 1(491)[address] [place], [place] 1348904-15-2025 14:38-0400 Systolic blood fcqjguyu087 mm[Hg]Yinka Lopez MD Work Phone: 1(345)[address] [place], [place] 1348904-04-2025 10:47-0400 Body jbfvrwakbbn36.8 [degF]Yinka Lopez MD Work Phone: 1(862)[address] [place], [place] 1348904-04-2025 10:47-0400 Body hqelzk07.55 kgYinka Lopez MD Work Phone: 1(440)[address] [place], [place] 1348904-04-2025 10:47-0400 Diastolic blood xehuvdrp26 mm[Hg]Yinka Lopez MD Work Phone: 1(887)[address] [place], [place] 1348904-04-2025 10:47-0400 Heart rate76 /Markus Lopez MD Work Phone: 1(155)[address] [place], [place] 1348904-04-2025 10:47-0400 Respiratory rate16 /Markus Lopez MD Work Phone: 1(427)[address] [place], [place] 1348904-04-2025 10:47-0400 SaO2% (BldA) [Mass fraction]98 %Yinka Lopez MD Work Phone: 1(645)[address] [place], [place] 1348904-04-2025 10:47-0400 Systolic blood lyegrnkl405 mm[Hg]Yinka Lopez MD Work Phone: 1(042)[address] [place], [place] 1348904-01-2025 08:15-0400 Body ejmhhyzgcje15.2 [degF]Yinka Lopez MD Work Phone: 1(839)[address] [place], [place] 1348904-01-2025 08:15-0400 Diastolic blood fpvokhiy09 mm[Hg]Yinka Lopez MD Work Phone: [address] [place], [place] 1348904-01-2025 08:15-0400 Heart rate83 /Markus Lopez MD Work Phone: 1(839)[address] [place], [place] 1348904-01-2025 08:15-0400 Respiratory rate16 /Markus Lopez MD Work Phone: 1(103)[address] [place], [place] 1348904-01-2025 08:15-0400 SaO2% (BldA) [Mass fraction]97 %Yinka Lopez MD Work Phone: 1(483)[address] [place], [place] 1348904-01-2025 08:15-0400 Systolic blood upvfysfy204 mm[Hg]Yinka Lopez MD Work Phone: 1(556)[address] [place], [place] 1348902-27-2025 10:33-0500 Body eddrae033.48 cmYinka Lopez MD Work Phone: 1(844)[address] [place], [place] 1348902-27-2025 10:33-0500 Body mass index (BMI) [Ratio]34.2 kg/u6YgpgrYinka Lopez MD Work Phone: 1(776)[address] [place], [place] 1348902-27-2025 10:33-0500 Body bbladfgbvji49.8 [degF]Yinka Lopez MD Work Phone: 1(813)[address] [place], [place] 1348902-27-2025 10:33-0500 Body ahhajx72.82 kgYinka Lopez MD Work Phone: 1(455)[address] [place], [place] 1348902-27-2025 10:33-0500 Diastolic blood sxtmlots87 mm[Hg]Yinka Lopez MD Work Phone: 1(465)[address] [place], [place] 1348902-27-2025 10:33-0500 Heart rate82 /minYinka Lopez MD Work Phone: 1(907)[address] [place], [place] 1348902-27-2025 10:33-0500 Respiratory rate16 /minYinka Lopez MD Work Phone: 1(501)[address] [place], [place] 1348902-27-2025 10:33-0500 SaO2% (BldA) [Mass fraction]98 %Yinka Lopez MD Work Phone: 1(862)[address] [place], [place] [id number] 10:33-0500 Systolic blood xrvvbils141 mm[Hg]Yinka Lopez MD Work Phone: 1(598)[address] [place], [place] [id number] 15:49-0500 Body oflcsh163.48 cmYinka Lopez MD Work Phone: 1(135)[address] [place], [place] [id number] 15:49-0500 Body lhxmemerxdl39.1 [degF]Yinka Lopez MD Work Phone: 1(645)[address] [place], [place] [id number] 15:49-0500 Body qliqxt08.15 kgYinka Loepz MD Work Phone: 1(752)[address] [place], [place] [id number] 15:49-0500 Diastolic blood fkxyhave25 mm[Hg]Yinka Lopez MD Work Phone: 1(711)[address] [place], [place] [id number] 15:49-0500 Heart rate81 /minYinka Lopez MD Work Phone: 1(162)[address] [place], [place] [id number] 15:49-0500 Respiratory rate16 /minYinka Lopez MD Work Phone: 1(330)[address] [place], [place] [id number] 15:49-0500 SaO2% (BldA) [Mass fraction]99 %Yinka Lopez MD Work Phone: 1(737)[address] [place], [place] [id number] 15:49-0500 Systolic blood svuoeszf681 mm[Hg]Yinka Lopez MD Work Phone: 1(184)[address] [place], [place] [id number] 13:48-0500 Body vfwocb065 cmYinka Lopez MD Work Phone: 1(988)[address] [place], [place] [id number] 13:48-0500Body mass index (BMI) [Ratio]32.17 kg/p3HupteYinka Lopez MD Work Phone: 1(314)[address] [place], [place] [id number] 13:48-0500Body temperature 98.2 [degF]Yinka Lopez MD Work Phone: 1(613)[address] [place], [place] 2836002-18-2025 13:48-0500Body aefiyu41.37 kgYinka Lopez MD Work Phone: 1(080)[address] [place], [place] [id number] 13:48-0500Diastolic blood bmewejrm18 mm[Hg]Yinka Lopez MD Work Phone: 1(477)[address] [place], [place] [id number] 13:48-0500Heart rate81 /min Yinka Lopez MD Work Phone: 1(614)[address] [place], [place] [id number] 13:48-0500Respiratory rate20 /minYinka Lopez MD Work Phone: 1(040)[address] [place], [place] [id number] 13:48-0147NxH5% (BldA) [Mass fraction]97 %Yinka Lopez MD Work Phone: 1(561)[address] [place], [place] 2836002-18-2025 13:48-0500Systolic blood txxmniff789 mm[Hg]Yinka Lopez MD Work Phone: 1(990)[address] [place], [place] 2836002-06-2025 14:00-0500Body temperature 97.5 [degF]Yinka Lopez MD Work Phone: 1(062)[address] [place], [place] 1348902-06-2025 14:00-0500 Body ekqeho40.37 kgYinka Lopez MD Work Phone: 1(723)[address] [place], [place] 1348902-06-2025 14:00-0500 Diastolic blood qpyruner51 mm[Hg]Yinka Lopez MD Work Phone: 1(015)[address] [place], [place] 1348902-06-2025 14:00-0500 Heart rate85 /minYinka Lopez MD Work Phone: 1(690)[address] [place], [place] 1348902-06-2025 14:00-0500 Respiratory rate19 /minYinka Lopez MD Work Phone: 1(351)[address] [place], [place] 1348902-06-2025 14:00-0500 SaO2% (BldA) [Mass fraction]97 %Yinka Lopez MD Work Phone: 1(463)[address] [place], [place] 1348902-06-2025 14:00-0500 Systolic blood fhsalemu221 mm[Hg]Yinka Lopez MD Work Phone: 1(735)[address] [place], [place] 1348901-27-2025 10:18-0500 Body asrkip042.5 cmKapil Mortensen APRN-SALES DEVELOPMENT REPRESENTATIVE Work Phone: [facility]01-27-2025 10:18-0500 Body mass index (BMI) [Ratio]32.37 kg/d5WddqcKapil Mortensen APRN-SALES DEVELOPMENT REPRESENTATIVE Work Phone: 1(216)[address]01-27-2025 10:18-0500 Body jejleibpcji00.5 [degF]Kapil Mortensen VISUAL MERCHANDISER-SALES DEVELOPMENT REPRESENTATIVE Work Phone: 1(245)5-[address] [place], [place] 1448701-27-2025 10:18-0500 Body eoiuzv07.29 kgKapil Mortensen VISUAL MERCHANDISER-SALES DEVELOPMENT REPRESENTATIVE Work Phone: [phone] [place], [place] 5905301-27-2025 10:18-0500 Diastolic blood purzqyja50 mm[Hg]Kapil Nullconny VISUAL MERCHANDISER-SALES DEVELOPMENT REPRESENTATIVE Work Phone: [address] [place], [place] 5905301-27-2025 10:18-0500 Heart rate73 /Rebel Nullconny VISUAL MERCHANDISER-SALES DEVELOPMENT REPRESENTATIVE Work Phone: 1(457)[address] [place], [place] 5905301-27-2025 10:18-0500 Systolic blood qejehmya15 mm[Hg]Kapil Nullconny VISUAL MERCHANDISER-SALES DEVELOPMENT REPRESENTATIVE Work Phone: 1(027)[address]01-16-2025 13:14-0500 Body vjabvr233.48 cmYinka Lopez MD Work Phone: 1(378)[address]01-15-2025 10:17-0500 Body gjetvztlivo04.5 [degF]Yinka Lopez MD Work Phone: 1(720)[address]01-15-2025 10:17-0500 Body tugtff14.64 kgYinka Lopez MD Work Phone: 2(726)194-[address] [place], [place] 3293501-15-2025 10:17-0500 Diastolic blood zmiyywdm59 mm[Hg]Yinka Lopez MD Work Phone: 1(863)[address]01-15-2025 10:17-0500 Heart rate72 /Markus Lopez MD Work Phone: 1(617)908-[address] [place], [place] 3293501-15-2025 10:17-0500 Respiratory rate16 /Markus Lopez MD Work Phone: 1(189)856-[address] [place], [place] 3293501-15-2025 10:17-0500 SaO2% (BldA) [Mass fraction]98 %Yinka Lopez MD Work Phone: 1(992)[address] [place], [place] 1348901-15-2025 10:17-0500 Systolic blood pkoujfhr122 mm[Hg]Yinka Lopez MD Work Phone: 1(988)[address] [place], [place] 1348912-26-2024 10:01-0500 Body .7 [degF]Yinka Lopez MD Work Phone: 1(688)[address] [place], [place] 1348912-26-2024 10:01-0500 Diastolic blood crfwgpih04 mm[Hg]Yinka Lopez MD Work Phone: 1(334)[address] [place], [place] 1348912-26-2024 10:01-0500 Heart rate78 /minYinka Lopez MD Work Phone: 1(143)[address] [place], [place] 1348912-26-2024 10:01-0500 Respiratory rate18 /minYinka Lopez MD Work Phone: 1(732)[address] [place], [place] 1348912-26-2024 10:01-0500 SaO2% (BldA) [Mass fraction]97 %Yinka Lopez MD Work Phone: 1(231)[address] [place], [place] 1348912-26-2024 10:01-0500 Systolic blood lhyddhwr903 mm[Hg]Yinka Lopez MD Work Phone: 1(336)[address] [place], [place] 1348912-23-2024 07:07-0500 Body jviycj185.48 cmYinka Lopez MD Work Phone: 1(446)[address] [place], [place] 1348912-23-2024 07:07-0500 Body ctblro38.56 kgYinka Lopez MD Work Phone: 1(508)[address] [place], [place] 1348912-20-2024 10:33-0500 Body ekoioa145.48 cmYinka Lopez MD Work Phone: 1(310)[address] [place], [place] 1348912-20-2024 10:33-0500 Body mass index (BMI) [Ratio]33 kg/y3TnubkYinka Lopez MD Work Phone: 1(085)[address] [place], [place] 1348912-20-2024 10:33-0500 Body auefihkdgdi25.2 [degF]Yinka Lopez MD Work Phone: 1(447)[address] [place], [place] 1348912-20-2024 10:33-0500 Body cvarbn70.1 kgYinka Lopez MD Work Phone: 1(134)[address] [place], [place] 1348912-20-2024 10:33-0500 Diastolic blood hhunkmji02 mm[Hg]Yinka Lopez MD Work Phone: 1(511)[address] [place], [place] 1348912-20-2024 10:33-0500 Heart rate79 /minYinka Lopez MD Work Phone: 1(930)[address] [place], [place] 1348912-20-2024 10:33-0500 Respiratory rate16 /minYinka Lopez MD Work Phone: 1(739)[address] [place], [place] 1348912-20-2024 10:33-0500 SaO2% (BldA) [Mass fraction]96 %Yinka Lopez MD Work Phone: 1(101)[address] [place], [place] 1348912-20-2024 10:33-0500 Systolic blood nhuarggs68 mm[Hg]Yinka Lopez MD Work Phone: 1(620)[address] [place], [place] 1348912-04-2024 14:51-0500 Body ocglmo329.48 cmYinka Lopez MD Work Phone: 1(603)[address] [place], [place] 1348912-04-2024 14:51-0500 Body mass index (BMI) [Ratio]33 kg/p4HhslbYinka Lopez MD Work Phone: 1(462)[address] [place], [place] 1348912-04-2024 14:51-0500 Body jgxslafpwkz63.9 [degF]Yinka Lopez MD Work Phone: 1(938)[address] [place], [place] 1348912-04-2024 14:51-0500 Body lgnbop51.1 kgYinka Lopez MD Work Phone: 1(085)[address] [place], [place] 1348912-04-2024 14:51-0500 Diastolic blood zrcamndl30 mm[Hg]Yinka Lopez MD Work Phone: 1(218)[address] [place], [place] 1348912-04-2024 14:51-0500 Heart rate79 /minYinka Lopez MD Work Phone: 1(255)[address] [place], [place] 1348912-04-2024 14:51-0500 Respiratory rate16 /minYinka Lopez MD Work Phone: 1(234)[address] [place], [place] 1348912-04-2024 14:51-0500 SaO2% (BldA) [Mass fraction]97 %Yinka Lopez MD Work Phone: 1(023)[address] [place], [place] 1348912-04-2024 14:51-0500 Systolic blood eylwampa98 mm[Hg]Yinka Lopez MD Work Phone: 1(950)[address] [place], [place] 1348911-14-2024 09:53-0500 Body .48 cmYinka Lopez MD Work Phone: 1(252)[address] [place], [place] 1348911-14-2024 09:53-0500 Body mass index (BMI) [Ratio]33 kg/e4IqlreYinka Lopez MD Work Phone: 1(221)[address] [place], [place] 1348911-14-2024 09:53-0500 Body crqowtobsfb39.1 [degF]Yinka Lopez MD Work Phone: 1(939)[address] [place], [place] 1348911-14-2024 09:53-0500 Body .1 kgYinka Lopez MD Work Phone: 1(933)[address] [place], [place] 1348911-14-2024 09:53-0500 Diastolic blood ehtmjkuu37 mm[Hg]Yinka Lopez MD Work Phone: 1(102)[address] [place], [place] 1348911-14-2024 09:53-0500 Heart rate85 /minYinka Lopez MD Work Phone: 1(092)[address] [place], [place] 1348911-14-2024 09:53-0500 Respiratory rate16 /minYinka Lopez MD Work Phone: 1(217)[address] [place], [place] 1348911-14-2024 09:53-0500 SaO2% (BldA) [Mass fraction]98 %Yinka Lopez MD Work Phone: 1(668)[address] [place], [place] 1348911-14-2024 09:53-0500 Systolic blood yptsdszg419 mm[Hg]Yinka Lopez MD Work Phone: 1(966)699-92[facility]11-13-2024 10:15-0500 Body owjtph502.48 cmYinka Lopez MD Work Phone: 1(483)410-14[facility]11-13-2024 10:15-0500 Body mass index (BMI) [Ratio]34.2 kg/h8ZdffoYinka Lopez MD Work Phone: 1(832)302-96[facility]11-13-2024 10:15-0500 Body .82 kgYinka Lopez MD Work Phone: 1(284)633-49[facility]11-05-2024 12:45-0500 Body mass index (BMI) [Ratio]33.73 kg/d8Bgfaw Gregorio VISUAL MERCHANDISER-SALES DEVELOPMENT REPRESENTATIVE Work Phone: 1(612)449-[address] [place], [place] 1514711-05-2024 12:45-0500 Body wegsckdetgs26.8 [degF]Lisette Gregorio VISUAL MERCHANDISER-SALES DEVELOPMENT REPRESENTATIVE Work Phone: [phone])083-[address] [place], [place] 1514711-05-2024 12:45-0500 Body eygpsp08.2 kgLinda Gregorio VISUAL MERCHANDISER-SALES DEVELOPMENT REPRESENTATIVE Work Phone: [phone])505-[address] [place], [place] 1514711-05-2024 12:45-0500 Diastolic blood cluomhfh25 mm[Hg]Lisette Gregorio VISUAL MERCHANDISER-SALES DEVELOPMENT REPRESENTATIVE Work Phone: [phone])471-[facility]11-05-2024 12:45-0500 Heart rate80 /minLinda Gregorio VISUAL MERCHANDISER-SALES DEVELOPMENT REPRESENTATIVE Work Phone: [phone]11-05-2024 12:45-0500 Respiratory rate16 /minLinda Gregorio VISUAL MERCHANDISER-SALES DEVELOPMENT REPRESENTATIVE Work Phone: [phone])365-[address] [place], [place] 1514711-05-2024 12:45-0500 SaO2% (BldA) [Mass fraction]99 %Lisette Gregorio VISUAL MERCHANDISER-SALES DEVELOPMENT REPRESENTATIVE Work Phone: [phone])125-[address] [place], [place] 1514711-05-2024 12:45-0500 Systolic blood zmaejymk912 mm[Hg]Lisette Perkins VISUAL MERCHANDISER-SALES DEVELOPMENT REPRESENTATIVE Work Phone: [facility]10-25-2024 09:15-0400 Body .48 cmMD Yinka Lopez Work Phone: 1(997)[address] [place], [place] 1348910-25-2024 09:15-0400 Body mass index (BMI) [Ratio]34.2 kg/m2MD Yinka Lopez Work Phone: 1(410)[address] [place], [place] 1348910-25-2024 09:15-0400 Body qmngisrvclj20.4 [degF]MD Yinka Lopez Work Phone: 1(618)[address] [place], [place] 1348910-25-2024 09:15-0400 Body ocfulm22 kgMD Yinka Lopez Work Phone: 1(593)[address] [place], [place] 1348910-25-2024 09:15-0400 Diastolic blood lccozvch12 mm[Hg]MD Yinka Lopez Work Phone: 1(182)[address] [place], [place] 1348910-25-2024 09:15-0400 Heart rate67 /minMD Yinka Lopez Work Phone: 1(347)[address] [place], [place] 1348910-25-2024 09:15-0400 Systolic blood fwhriqbc449 mm[Hg]MD Yinka Lopez Work Phone: 1(230)[address] [place], [place] 1348910-24-2024 14:49-0400 Body endorb386.5 cmFredric Itzkowitz DO Work Phone: [facility][phone]0376 14:49-0400Body mass index (BMI) [Ratio]34.39 kg/n9Dmvrlbb Itzkowitz DO Work Phone: [facility]Bgvzmvdjjm27-54-0416 14:49-0400Body jrbqux94.28 kgFredric Itzkowitz DO Work Phone: [facility] HospitalIwlozxenon31-34-8586 13:59-0400Body njsniu849.5 cmAmy Warchol GLASS CUT OFF SUPERVISOR Work Phone: [address] [place], [place] [address]Tnqjdyorpu45-24-8393 13:59-0400Body mass index (BMI) [Ratio]33.29 kg/m2Fabiola Warchol GLASS CUT OFF SUPERVISOR Work Phone: [facility] HospitalKkjeltyfcx83-80-7502 13:59-0400Body temperature 98.1 [degF]Fabiola Warchol GLASS CUT OFF SUPERVISOR Work Phone: [facility] HospitalOblovzhpus12-47-4390 13:59-0400Body bwelrt55.56 kgFabiola Warchol GLASS CUT OFF SUPERVISOR Work Phone: [facility] HospitalGnbefdrtbs21-99-4918 13:59-0400Diastolic blood jxytyjmm53 mm[Hg]Fabiola Warchol GLASS CUT OFF SUPERVISOR Work Phone: 1(874)[facility]-[address] [place], [place] [address]Dtmtmhfzya42-40-3346 13:59-0400Heart rate73 /min Fabiola Warchol GLASS CUT OFF SUPERVISOR Work Phone: [facility] HospitalBjsubfawwh70-07-5266 13:59-2490ZnY4% (BldA) [Mass fraction]98 %Fabiola Warchol GLASS CUT OFF SUPERVISOR Work Phone: [facility] HospitalMlwrbmcffx02-35-2712 13:59-0400Systolic blood aacnzrrj009 mm[Hg]Fabiola Annechol GLASS CUT OFF SUPERVISOR Work Phone: 1(028)[phone] HospitalJhikxispbp39-56-3334 08:27-0400Body mass index (BMI) [Ratio]34.64 kg/m2Supa Lindquist MD PhD Work Phone: [facility]10-15-2024 08:27-0400 Body pmctoqzgoug80.3 [degF]Supa Lindquist MD PhD Work Phone: [phone]10-15-2024 08:27-0400 Body upjjuf53.4 kgSupa Lindquist MD PhD Work Phone: [phone]10-15-2024 08:27-0400 Diastolic blood jsluyfpa75 mm[Hg]Supa Lindquist MD PhD Work Phone: [phone]10-15-2024 08:27-0400 Heart rate72 /minSupa Lindquist MD PhD Work Phone: 1216)[address] [place], [place] 2752010-15-2024 08:27-0400 Respiratory rate16 /Lakhwinder Lindquist MD PhD Work Phone: 1)[address] [place], [place] 2752010-15-2024 08:27-0400 SaO2% (BldA) [Mass fraction]99 %Supa Lindquist MD PhD Work Phone: 1()[address] [place], [place] 2752010-15-2024 08:27-0400 Systolic blood aiftzach382 mm[Hg]Supa Lindquist MD PhD Work Phone: 1()[address] [place], [place] 2752009-24-2024 12:59-0400 Body mass index (BMI) [Ratio]32.76 kg/m6Egsvs Gregorio VISUAL MERCHANDISER-SALES DEVELOPMENT REPRESENTATIVE Work Phone: 1()[address] [place], [place] 2752009-24-2024 12:59-0400 Body zkgakobnqyi17.6 [degF]Lisette Gregorio VISUAL MERCHANDISER-SALES DEVELOPMENT REPRESENTATIVE Work Phone: 1()[address] [place], [place] 2752009-24-2024 12:59-0400 Body wphabt23.83 kgLinda Gregorio VISUAL MERCHANDISER-SALES DEVELOPMENT REPRESENTATIVE Work Phone: 1()[address] [place], [place] 2752009-24-2024 12:59-0400 Diastolic blood zvrkoywa21 mm[Hg]Lisette Perkins VISUAL MERCHANDISER-SALES DEVELOPMENT REPRESENTATIVE Work Phone: 1()[address] [place], [place] 2752009-24-2024 12:59-0400 Heart rate77 /minLinda Gregorio VISUAL MERCHANDISER-SALES DEVELOPMENT REPRESENTATIVE Work Phone: 1()[address] [place], [place] 2752009-24-2024 12:59-0400 Respiratory rate16 /minLinda Gregorio VISUAL MERCHANDISER-SALES DEVELOPMENT REPRESENTATIVE Work Phone: 1()[address] [place], [place] 2752009-24-2024 12:59-0400 SaO2% (BldA) [Mass fraction]100 %Lisette Perkins VISUAL MERCHANDISER-SALES DEVELOPMENT REPRESENTATIVE Work Phone: 1()[address] [place], [place] 2752009-24-2024 12:59-0400 Systolic blood pdyachxe774 mm[Hg]Lisette Prekins VISUAL MERCHANDISER-SALES DEVELOPMENT REPRESENTATIVE Work Phone: [facility]09-16-2024 10:00-0400 Body .5 cmJuan J Mendez MD Work Phone: [facility]09-16-2024 10:00-0400Body mass index (BMI) [Ratio]32.38 kg/m2Juan J Mendez MD Work Phone: [facility]09-16-2024 10:00-0400Body nofcpj03.3 kgJuan J Mendez MD Work Phone: [facility]09-16-2024 10:00-0400Diastolic blood suywgtmd84 mm[Hg]Juan J Mendez MD Work Phone: [facility]09-16-2024 10:00-0400Heart rate76 /min Juan J Mendez MD Work Phone: [facility]09-16-2024 10:00-0400Systolic blood mm[Hg]Juan J Mendez MD Work Phone: [facility]09-03-2024 08:51-0400Body mass index (BMI) [Ratio]31.42 kg/m2Supa Lindquist MD PhD Work Phone: [facility]09-03-2024 08:51-0400 Body yrmgalxrztw64.3 [degF]Supa Lindquist MD PhD Work Phone: [facility]09-03-2024 08:51-0400 Body dikiui06.57 kgSupa Lindquist MD PhD Work Phone: [facility]09-03-2024 08:51-0400 Diastolic blood qoauints85 mm[Hg]Supa Lindquist MD PhD Work Phone: [facility]09-03-2024 08:51-0400 Heart rate76 /Lakhwinder Lindquist MD PhD Work Phone: [facility]09-03-2024 08:51-0400 Respiratory rate16 /Lakhwinder Lindquist MD PhD Work Phone: [facility]09-03-2024 08:51-0400 SaO2% (BldA) [Mass fraction]100 %Supa Lindquist MD PhD Work Phone: [facility]09-03-2024 08:51-0400 Systolic blood hfqtctoo705 mm[Hg]Supa Lindquist MD PhD Work Phone: [facility]08-28-2024 09:20-0400 Body .48 cmMD Ez Delgado Work Phone: [facility]08-28-2024 09:20-0400 Body mass index (BMI) [Ratio]30.7 kg/m2MD zE Delgado Work Phone: [facility]08-28-2024 09:20-0400 Body vyquwlmqunc14.5 [degF]MD Ez Delgado Work Phone: [facility]08-28-2024 09:20-0400 Body kkynme28.2 kgMD Ez Delgado Work Phone: [facility]08-28-2024 09:20-0400 Diastolic blood pressure6 mm[Hg]MD Ez Delgado Work Phone: [facility]08-28-2024 09:20-0400 Diastolic blood tuvoapnx55 mm[Hg]MD Ez Delgado Work Phone: [facility]08-28-2024 09:20-0400 Heart rate71 /minMD Ez Delgado Work Phone: [facility]08-28-2024 09:20-0400 Respiratory rate16 /minMD Ez Delgado Work Phone: [facility]08-28-2024 09:20-0400 SaO2% (BldA) [Mass fraction]98 %MD Ez Delgado Work Phone: [facility]08-28-2024 09:20-0400 Systolic blood oceelyex166 mm[Hg]MD Ez Delgado Work Phone: [facility]08-27-2024 09:15-0400 Body vwsqam782.48 cmMD Ez Delgado Work Phone: [facility]08-27-2024 09:15-0400 Body mass index (BMI) [Ratio]29.4 kg/m2MD Ez Delgado Work Phone: [phone]08-27-2024 09:15-0400 Body aitwspqkmrw48.3 [degF]MD Ez Delgado Work Phone: [facility]08-27-2024 09:15-0400 Body adgduq39.02 kgMD Ez Delgado Work Phone: 1(998)[address]08-27-2024 09:15-0400 Diastolic blood blmqndny42 mm[Hg]MD Ez Delgado Work Phone: 1(797)184-[address] [place], [place] 7756408-27-2024 09:15-0400 Heart rate75 /minMD Ez eDlgado Work Phone: 1(810)575-81[facility]08-27-2024 09:15-0400 SaO2% (BldA) [Mass fraction]96 %MD Ez Delgado Work Phone: [facility]08-27-2024 09:15-0400 Systolic blood fjmlyhnu58 mm[Hg]MD Ez Delgado Work Phone: 1(916)790-48[facility]08-26-2024 10:11-0400 Body cmgjar914.48 cmMD Ez Delgado Work Phone: [facility]08-26-2024 10:11-0400 Body mass index (BMI) [Ratio]29.4 kg/m2MD Ez Delgado Work Phone: [facility]08-26-2024 10:11-0400 Body wydfvdgjblb44.4 [degF]MD Ez Delgado Work Phone: 1([phone]08-26-2024 10:11-0400 Body fwcacx17.02 kgMD Ez Delgado Work Phone: [facility]08-26-2024 10:11-0400 Diastolic blood mm[Hg]MD Ez Delgado Work Phone: [facility]08-26-2024 10:11-0400 Heart rate72 /minMD Ez Delgado Work Phone: [facility]08-26-2024 10:11-0400 Respiratory rate20 /minMD Ez Delgado Work Phone: [facility]08-26-2024 10:11-0400 SaO2% (BldA) [Mass fraction]97 %MD Ez Delgado Work Phone: [facility]08-26-2024 10:11-0400 Systolic blood mm[Hg]MD Ez Delgado Work Phone: [facility]08-19-2024 14:56-0400 Body mtgida230.5 cmAradha Palumbo GLASS CUT OFF SUPERVISOR Work Phone: [facility] HospitalAjlatijvst74-95-9487 14:56-0400Body mass index (BMI) [Ratio]28.72 kg/m2Fabiola Annechol GLASS CUT OFF SUPERVISOR Work Phone: [facility] HospitalKreirukwtw60-76-6025 14:56-0400Body temperature 97.2 [degF]Fabiola Annechol GLASS CUT OFF SUPERVISOR Work Phone: [facility] HospitalZahkmvhcfm00-75-0387 14:56-0400Body diljie09.22 kgFabiola Annechol GLASS CUT OFF SUPERVISOR Work Phone: [place] [address]Dweiyquyxq68-31-5223 14:56-0400Diastolic blood rqbaifbu26 mm[Hg]Fabiola Warchol GLASS CUT OFF SUPERVISOR Work Phone: [place] [address]Egiodkqdhc49-66-8604 14:56-0400Heart rate98 /min Fabiola Warchol GLASS CUT OFF SUPERVISOR Work Phone: [place] [address]Uhbzlkfbhe29-82-0735 14:56-0400Respiratory rate16 /minFabiola Annechol GLASS CUT OFF SUPERVISOR Work Phone: [place] [address]Lqswctckmk72-45-6667 14:56-0220VeZ5% (BldA) [Mass fraction]98 %Fabiola Palumbo GLASS CUT OFF SUPERVISOR Work Phone: [facility] HospitalNprpxtjgqf64-65-1745 14:56-0400Systolic blood mm[Hg]Fabiola Palumbo GLASS CUT OFF SUPERVISOR Work Phone: [facility] HospitalBykkuaomdv16-55-1663 13:21-0400Body gdzfyt601.48 cmMD Ez Delgado Work Phone: [facility]07-29-2024 13:21-0400 Body mass index (BMI) [Ratio]28 kg/m2MD Ez Delgado Work Phone: [facility]07-29-2024 13:21-0400 Body oezjve19.39 kgMD Ez Delgado Work Phone: [facility]07-09-2024 13:12-0400 Body mass index (BMI) [Ratio]30.38 kg/m2Supa Lindquist MD PhD Work Phone: [phone]07-09-2024 13:12-0400 Body .5 [degF]Supa Lindquist MD PhD Work Phone: [phone]07-09-2024 13:12-0400 Body qzcmat97.03 kgSupa Lindquist MD PhD Work Phone: [phone]07-09-2024 13:12-0400 Diastolic blood amiuaqvv95 mm[Hg]Supa Lindquist MD PhD Work Phone: [phone]07-09-2024 13:12-0400 Heart rate69 /Lakhwinder Lindquist MD PhD Work Phone: [phone]07-09-2024 13:12-0400 Respiratory rate16 /Lakhwinder Lindquist MD PhD Work Phone: [phone]07-09-2024 13:12-0400 SaO2% (BldA) [Mass fraction]97 %Supa Lindquist MD PhD Work Phone: [facility]07-09-2024 13:12-0400 Systolic blood dxnmpffi58 mm[Hg]Supa Lindquist MD PhD Work Phone: [facility]06-18-2024 14:00-0400 Body mapqugkqjfe54.8 [degF]MD Yinka Lopez Work Phone: 1(245)194[facility]90[facility]06-18-2024 14:00-0400 Diastolic blood mm[Hg]MD Yinka Lopez Work Phone: 1(390)[address]06-18-2024 14:00-0400 Heart rate88 /minMD Yinka Lopez Work Phone: 1(331)[address] [place], [place] 1348906-18-2024 14:00-0400 Respiratory rate16 /minMD Yinka Lopez Work Phone: 1(344)[address] [place], [place] 1348906-18-2024 14:00-0400 SaO2% (BldA) [Mass fraction]99 %MD Yinka Lopez Work Phone: 1(614)[address]06-18-2024 14:00-0400 Systolic blood oeccdrga150 mm[Hg]MD Yinka Lopez Work Phone: 1(823)[address]06-18-2024 06:00-0400 Body yhnwbt71.6 kgMD Yinka Lopez Work Phone: 1(178)[address]06-17-2024 16:09-0400 Body bhsxow159.48 cmMD Yinka Lopez Work Phone: 1(984)[address]06-17-2024 04:00-0400 Inhaled oxygen flow rate2 L/minMD Yinka Lopez Work Phone: 1(013)[address] [place], [place] 1348906-09-2024 23:29-0400 Body euuuamipmca89.7 [degF]MD Yinka Lopez Work Phone: 1(597)[address]06-09-2024 22:18-0400 Diastolic blood bpkhqnvy86 mm[Hg]MD Yinka Lopez Work Phone: 1(194)[address] [place], [place] 1348906-09-2024 22:18-0400 Heart mils108 /minMD Yinka Lopez Work Phone: 1(396)[address] [place], [place] 1348906-09-2024 22:18-0400 Inhaled oxygen flow rate2 L/minNJ Yinka Lopez Work Phone: 1(394)[address] [place], [place] 1348906-09-2024 22:18-0400 Respiratory rate20 /minNJ Yinka Lopez Work Phone: 1(791)[address] [place], [place] 1348906-09-2024 22:18-0400 SaO2% (BldA) [Mass fraction]95 %MD Yinka Lopez Work Phone: 1(732)[address] [place], [place] 1348906-09-2024 22:18-0400 Systolic blood vrlwztvu853 mm[Hg]MD Yinka Lopez Work Phone: 1(832)[address] [place], [place] 1348906-09-2024 17:07-0400 Body humouz715.48 cmMD Yinka Lopez Work Phone: 1(108)[address] [place], [place] 1348906-09-2024 17:07-0400 Body hstjdu08 kgMD Yinka Lopez Work Phone: 1(435)[address] [place], [place] 1348905-23-2024 13:43-0400 Body ckyeyj984.48 cmNJ Yinka Lopez Work Phone: 1(385)[address] [place], [place] 1348905-23-2024 13:43-0400 Body mass index (BMI) [Ratio]30.2 kg/m2MD Yinka Thomaster Work Phone: 1(969)[address] [place], [place] 1348905-23-2024 13:43-0400 Body wpbeeuhgxma47.1 [degF]MD Yinka Lopez Work Phone: 1(554)[address] [place], [place] 1348905-23-2024 13:43-0400 Body iyompb38 kgMD Yinka Thomaster Work Phone: 1(833)[address] [place], [place] 1348905-23-2024 13:43-0400 Diastolic blood gjgmiary00 mm[Hg]MD Yinka Lopez Work Phone: [facility]05-23-2024 13:43-0400 Heart rate74 /minMD Yinka Lopez Work Phone: [facility]05-23-2024 13:43-0400 Systolic blood uxwejvdp648 mm[Hg]MD Yinka Lopez Work Phone: [facility]05-21-2024 13:01-0400 Body mass index (BMI) [Ratio]31.03 kg/m2Supa Lindquist MD PhD Work Phone: [phone]05-21-2024 13:01-0400 Body mllvoziuwou79.8 [degF]Supa Lindquist MD PhD Work Phone: [phone] [place], [place] 1514705-21-2024 13:01-0400 Body mwsvyq75.61 kgSupa Lindquist MD PhD Work Phone: [phone] [place], [place] 1514705-21-2024 13:01-0400 Diastolic blood todfxvyv27 mm[Hg]Supa Lindquist MD PhD Work Phone: [phone] [place], [place] 1514705-21-2024 13:01-0400 Heart rate84 /Lakhwinder Lindquist MD PhD Work Phone: [phone] [place], [place] 1514705-21-2024 13:01-0400 Respiratory rate16 /Lakhwinder Lindquist MD PhD Work Phone: [phone] [place], [place] 1514705-21-2024 13:01-0400 SaO2% (BldA) [Mass fraction]97 %Supa Lindquist MD PhD Work Phone: [phone] [place], [place] 1514705-21-2024 13:01-0400 Systolic blood yjofxlcx433 mm[Hg]Supa Lindquist MD PhD Work Phone: [phone])103-[address] [place], [place] 1514705-20-2024 11:01-0400 Body aerreh861.48 cmMD Yinka Lopez Work Phone: 1([phone] [place], [place] 3293505-20-2024 11:01-0400 Body mass index (BMI) [Ratio]30.2 kg/m2MD Yinka Thomaster Work Phone: [phone] [place], [place] 1348905-20-2024 11:01-0400 Body ptcyafdbupn50.5 [degF]MD Yinka Lopez Work Phone: 1(654)[address] [place], [place] 1348905-20-2024 11:01-0400 Body .84 kgMD Yinka Thomaster Work Phone: 1(316)[address] [place], [place] 1348905-20-2024 11:01-0400 Diastolic blood wnullvrz51 mm[Hg]MD Yinka Lopez Work Phone: 1(487)[address] [place], [place] 1348905-20-2024 11:01-0400 Heart rate92 /minMD Yinka Lopez Work Phone: 1(207)[address] [place], [place] 1348905-20-2024 11:01-0400 Respiratory rate20 /min Yinka Thomaster Work Phone: 1(559)[address] [place], [place] 1348905-20-2024 11:01-0400 SaO2% (BldA) [Mass fraction]95 %MD Yinka Lopez Work Phone: 1([phone])[address] [place], [place] 1348905-20-2024 11:01-0400 Systolic blood ciqfhttl150 mm[Hg]MD Yinka Lopez Work Phone: 1(885)[address] [place], [place] 1348904-23-2024 09:06-0400 Body mass index (BMI) [Ratio]31.68 kg/m2Supa Lindquist MD PhD Work Phone: [facility]04-23-2024 09:06-0400 Body dmnlrqjurng96.7 [degF]Supa Lindquist MD PhD Work Phone: [facility]04-23-2024 09:06-0400 Body goqixs53.2 kgSupa Lindquist MD PhD Work Phone: [facility]04-23-2024 09:06-0400 Diastolic blood mm[Hg]Supa Lindquist MD PhD Work Phone: [phone]04-23-2024 09:06-0400 Heart rate90 /Lakhwinder Lindquist MD PhD Work Phone: [phone]04-23-2024 09:06-0400 Respiratory rate18 /Lakhwinder Lindquist MD PhD Work Phone: [phone] [place], [place] 1514704-23-2024 09:06-0400 SaO2% (BldA) [Mass fraction]99 %Supa Lindquist MD PhD Work Phone: [phone] [place], [place] 1514704-23-2024 09:06-0400 Systolic blood fptofmed793 mm[Hg]Supa Lindquist MD PhD Work Phone: [phone] [place], [place] 1514704-09-2024 10:00-0400 Body mass index (BMI) [Ratio]32.3 kg/n8Zeghi Gregorio VISUAL MERCHANDISER-SALES DEVELOPMENT REPRESENTATIVE Work Phone: [phone])967-[facility]04-09-2024 10:00-0400 Body zuhboqjfcab84.6 [degF]Lisette Gregorio VISUAL MERCHANDISER-SALES DEVELOPMENT REPRESENTATIVE Work Phone: [phone] [place], [place] 1514704-09-2024 10:00-0400 Body wgnbpi74.7 kgLinda Gregorio VISUAL MERCHANDISER-SALES DEVELOPMENT REPRESENTATIVE Work Phone: [phone]-[facility]04-09-2024 10:00-0400 Diastolic blood hvofdxae59 mm[Hg]Lisette Perkins VISUAL MERCHANDISER-SALES DEVELOPMENT REPRESENTATIVE Work Phone: [phone]-[facility]04-09-2024 10:00-0400 Heart rate82 /minLinda Gregorio VISUAL MERCHANDISER-SALES DEVELOPMENT REPRESENTATIVE Work Phone: [phone] [place], [place] 1514704-09-2024 10:00-0400 Respiratory rate16 /minLinda Gregorio VISUAL MERCHANDISER-SALES DEVELOPMENT REPRESENTATIVE Work Phone: [phone] [place], [place] 1514704-09-2024 10:00-0400 SaO2% (BldA) [Mass fraction]97 %Lisette Gregorio VISUAL MERCHANDISER[employer]SALES DEVELOPMENT REPRESENTATIVE Work Phone: [facility]04-09-2024 10:00-0400 Systolic blood uqypatzf059 mm[Hg]Lisette Gregorio VISUAL MERCHANDISER-SALES DEVELOPMENT REPRESENTATIVE Work Phone: [facility]03-21-2024 11:12-0400 Body vofmho862.48 cmMD Yinka Lopez Work Phone: 1(048)[address] [place], [place] 1348903-21-2024 11:12-0400 Body mass index (BMI) [Ratio]30.3 kg/m2MD Yinka Lopez Work Phone: 1(663)[address] [place], [place] 1348903-21-2024 11:12-0400 Body cixgrteckpu97.3 [degF]MD Yinka Lopez Work Phone: 1(068)[address] [place], [place] 1348903-21-2024 11:12-0400 Body .29 kgMD Yinka Lopez Work Phone: 1(663)[address] [place], [place] 1348903-21-2024 11:12-0400 Diastolic blood yqyjrlsl78 mm[Hg]MD Yinka Lopez Work Phone: 1(781)[address] [place], [place] 1348903-21-2024 11:12-0400 Heart rate88 /minMD Yinkashefali Thomaster Work Phone: 1(868)[address] [place], [place] 1348903-21-2024 11:12-0400 Respiratory rate18 /minMD Yinkashefali Thomaster Work Phone: 1(906)[address] [place], [place] 1348903-21-2024 11:12-0400 SaO2% (BldA) [Mass fraction]97 %MD Yinka Lopez Work Phone: 1(145)[address] [place], [place] 1348903-21-2024 11:12-0400 Systolic blood jimozmuz297 mm[Hg]MD Yinka Lopez Work Phone: 1(709)[address] [place], [place] 1348903-12-2024 13:22-0400 Body mass index (BMI) [Ratio]31.51 kg/t9CqictLisette Perkins VISUAL MERCHANDISER-SALES DEVELOPMENT REPRESENTATIVE Work Phone: [phone]03-12-2024 13:22-0400 Body cmdwnqnzxvy70.2 [degF]Lisette Gregorio VISUAL MERCHANDISER-SALES DEVELOPMENT REPRESENTATIVE Work Phone: [phone] [place], [place] 1514703-12-2024 13:22-0400 Body iilemg14.79 kgLinda Gregorio VISUAL MERCHANDISER-SALES DEVELOPMENT REPRESENTATIVE Work Phone: [phone] [place], [place] 1514703-12-2024 13:22-0400 Diastolic blood mlcavrau45 mm[Hg]Lisette Gregorio VISUAL MERCHANDISER-SALES DEVELOPMENT REPRESENTATIVE Work Phone: [phone] [place], [place] 1514703-12-2024 13:22-0400 Heart rate79 /minLinda Gregorio VISUAL MERCHANDISER-SALES DEVELOPMENT REPRESENTATIVE Work Phone: [phone])[address]03-12-2024 13:22-0400 Respiratory rate16 /minLinda Gregorio VISUAL MERCHANDISER-SALES DEVELOPMENT REPRESENTATIVE Work Phone: [phone] [place], [place] 1514703-12-2024 13:22-0400 SaO2% (BldA) [Mass fraction]96 %Lisette Gregorio VISUAL MERCHANDISER-SALES DEVELOPMENT REPRESENTATIVE Work Phone: [phone] [place], [place] 1514703-12-2024 13:22-0400 Systolic blood sdsipprf308 mm[Hg]Lisette Saleemer VISUAL MERCHANDISER-SALES DEVELOPMENT REPRESENTATIVE Work Phone: [phone] [place], [place] 1514702-27-2024 13:02-0500 Body mass index (BMI) [Ratio]32.58 kg/w1Ycqyo Gregorio VISUAL MERCHANDISER-SALES DEVELOPMENT REPRESENTATIVE Work Phone: [phone] [place], [place] 1514702-27-2024 13:02-0500 Body xiwbvcwhjpu47.3 [degF]Lisette Gregorio VISUAL MERCHANDISER-SALES DEVELOPMENT REPRESENTATIVE Work Phone: [phone] [place], [place] 1514702-27-2024 13:02-0500 Body mdskeu59.4 kgLinda Gregorio VISUAL MERCHANDISER-SALES DEVELOPMENT REPRESENTATIVE Work Phone: [phone] [place], [place] 1514702-27-2024 13:02-0500 Diastolic blood ismzjwdh62 mm[Hg]Lisette Perkins VISUAL MERCHANDISER-SALES DEVELOPMENT REPRESENTATIVE Work Phone: [facility]02-27-2024 13:02-0500 Heart rate87 /minLinda Gregorio VISUAL MERCHANDISER-SALES DEVELOPMENT REPRESENTATIVE Work Phone: [facility]02-27-2024 13:02-0500 Respiratory rate18 /minLinda Gregorio VISUAL MERCHANDISER-SALES DEVELOPMENT REPRESENTATIVE Work Phone: [facility]02-27-2024 13:02-0500 SaO2% (BldA) [Mass fraction]97 %Lisette Perkins VISUAL MERCHANDISER-SALES DEVELOPMENT REPRESENTATIVE Work Phone: [facility]02-27-2024 13:02-0500 Systolic blood ejpprcfm172 mm[Hg]Lisette Perkins VISUAL MERCHANDISER-SALES DEVELOPMENT REPRESENTATIVE Work Phone: [facility]02-15-2024 15:54-0500 Diastolic blood mm[Hg]MD Yinka Lopez Work Phone: 1([phone]02-15-2024 15:54-0500 Heart rate83 /minMD Yinka Lopez Work Phone: 1(042)712-86[facility]02-15-2024 15:54-0500 Respiratory rate18 /minMD Yinka Lopez Work Phone: 1(876)166-58[facility]02-15-2024 15:54-0500 SaO2% (BldA) [Mass fraction]95 %MD Yinka Lopez Work Phone: 1(033)662-82[facility]02-15-2024 15:54-0500 Systolic blood qgopmuny291 mm[Hg]MD Yinka Lopez Work Phone: 1([phone]02-15-2024 14:11-0500 Body gxaemeeqhjv43.8 [degF]MD Yinka Lopez Work Phone: [facility]02-15-2024 11:59-0500 Body yvmeyv536.48 cmMD Yinka Lopez Work Phone: [facility]02-15-2024 11:59-0500 Body bhbmqo83.3 kgMD Yinka Lopez Work Phone: [facility]01-26-2024 11:40-0500 Body mass index (BMI) [Ratio]32.76 kg/i8Vavmb Gregorio VISUAL MERCHANDISER-SALES DEVELOPMENT REPRESENTATIVE Work Phone: [facility]01-26-2024 11:40-0500 Body adzrqzjgodq50.6 [degF]Lisette Gregorio VISUAL MERCHANDISER-SALES DEVELOPMENT REPRESENTATIVE Work Phone: [phone]-[facility]01-26-2024 11:40-0500 Body ahuljr14.83 kgLinda Gregorio VISUAL MERCHANDISER-SALES DEVELOPMENT REPRESENTATIVE Work Phone: [phone]01-26-2024 11:40-0500 Diastolic blood hadlmnzv25 mm[Hg]Lisette Gregorio VISUAL MERCHANDISER-SALES DEVELOPMENT REPRESENTATIVE Work Phone: [phone]01-26-2024 11:40-0500 Heart rate78 /minLinda Gregorio VISUAL MERCHANDISER-SALES DEVELOPMENT REPRESENTATIVE Work Phone: [phone]01-26-2024 11:40-0500 Respiratory rate16 /minLinda Gregorio VISUAL MERCHANDISER-SALES DEVELOPMENT REPRESENTATIVE Work Phone: [phone]01-26-2024 11:40-0500 SaO2% (BldA) [Mass fraction]100 %Lisette Gregorio VISUAL MERCHANDISER-SALES DEVELOPMENT REPRESENTATIVE Work Phone: [phone]01-26-2024 11:40-0500 Systolic blood mm[Hg]Lisette Perkins VISUAL MERCHANDISER-SALES DEVELOPMENT REPRESENTATIVE Work Phone: [phone]01-24-2024 06:18-0500 Body yeoximecetv42.6 [degF]Supa Lindquist MD PhD Work Phone: [phone]01-24-2024 06:18-0500 Diastolic blood zyzplvos20 mm[Hg]Supa Lindquist MD PhD Work Phone: [phone])293-[facility]01-24-2024 06:18-0500 Heart rate73 /Lakhwinder Lindquist MD PhD Work Phone: [phone])963-[address] [place], [place] 1514701-24-2024 06:18-0500 Respiratory rate18 /Lakhwinder Lindquist MD PhD Work Phone: [phone]01-24-2024 06:18-0500 SaO2% (BldA) [Mass fraction]95 %uSpa Lindquist MD PhD Work Phone: [phone])[address]01-24-2024 06:18-0500 Systolic blood mm[Hg]Supa Lindquist MD PhD Work Phone: [phone])[address]01-20-2024 06:09-0500 Body mass index (BMI) [Ratio]31.31 kg/m2Supa Lindquist MD PhD Work Phone: [phone])[address]01-20-2024 06:09-0500 Body jaqrzn73.3 kgSupa Lindquist MD PhD Work Phone: [address] [place], [place] 2752001-17-2024 14:31-0500 Body kugqng839.1 cmSupa Lindquist MD PhD Work Phone: [address] [place], [place] 1514712-28-2023 11:29-0500 Body ujiezm08.97 kgMD Yinka Lopez Work Phone: [facility]12-28-2023 08:26-0500 Body qlfderkzegt20.5 [degF]MD Yinka Lopez Work Phone: [facility]12-28-2023 08:26-0500 Diastolic blood mm[Hg]MD Yinka Lopez Work Phone: [facility]12-28-2023 08:26-0500 Heart rate66 /minMD Yinka Lopez Work Phone: [facility]12-28-2023 08:26-0500 Respiratory rate16 /minMD Yinka Thomaster Work Phone: 1(068)[address] [place], [place] 1348912-28-2023 08:26-0500 SaO2% (BldA) [Mass fraction]99 %MD Yinka Lopez Work Phone: 1(663)[address] [place], [place] 1348912-28-2023 08:26-0500 Systolic blood couxzkrr323 mm[Hg]MD Yinka Lopez Work Phone: 1(749)[address] [place], [place] 1348912-21-2023 11:30-0500 Body .48 cmMD Yinka Thomaster Work Phone: 1(200)[address] [place], [place] 1348912-21-2023 11:30-0500 Diastolic blood ssljmvdu62 mm[Hg]MD Yinka Lopez Work Phone: 1(973)[address] [place], [place] 1348912-21-2023 11:30-0500 Systolic blood jnwrwsdi433 mm[Hg]MD Yinka Lopez Work Phone: 1(022)[address] [place], [place] 1348912-20-2023 11:32-0500 Body swnyqz14.92 kgMD Yinka Thomaster Work Phone: 1(856)[address] [place], [place] 1348912-20-2023 11:32-0500 Diastolic blood pqtyyfzs98 mm[Hg]MD Yinka Lopez Work Phone: 1(972)[address] [place], [place] 1348912-20-2023 11:32-0500 Heart rate82 /minMD Yinka Thomaster Work Phone: 1(030)[address] [place], [place] 1348912-20-2023 11:32-0500 Respiratory rate16 /minMD Yinka Thomaster Work Phone: 1(560)[address] [place], [place] 1348912-20-2023 11:32-0500 SaO2% (BldA) [Mass fraction]98 %MD Yinka Lopez Work Phone: 1(830)[address] [place], [place] 1348912-20-2023 11:32-0500 Systolic blood ctmypjqc015 mm[Hg]MD Yinka Lopez Work Phone: 1(276)[address] [place], [place] 1348912-05-2023 10:29-0500 Body mass index (BMI) [Ratio]31.96 kg/m2Supa Lindquist MD PhD Work Phone: [phone])630-[address] [place], [place] 1514712-05-2023 10:29-0500 Body tcddokxhnqx80.8 [degF]Supa Lindquist MD PhD Work Phone: 1216)[address] [place], [place] 2752012-05-2023 10:29-0500 Body fngnyy40.69 kgSupa Lindquist MD PhD Work Phone: [phone])[address]12-05-2023 10:29-0500 Diastolic blood xpqodgdc17 mm[Hg]Supa Lindquist MD PhD Work Phone: 1216)[address] [place], [place] 2752012-05-2023 10:29-0500 Heart rate81 /Lakhwinder Lindquist MD PhD Work Phone: 1216)[address] [place], [place] 2752012-05-2023 10:29-0500 Respiratory rate20 /Lakhwinder Lindquist MD PhD Work Phone: 1216)[address] [place], [place] 2752012-05-2023 10:29-0500 SaO2% (BldA) [Mass fraction]99 %Supa Lindquist MD PhD Work Phone: [phone])[address]12-05-2023 10:29-0500 Systolic blood baybedpc080 mm[Hg]Supa Lindquist MD PhD Work Phone: 1216)[address] [place], [place] 2752011-11-2023 13:12-0500 Body ktnjohaaffr08 [degF]MD Yinka Lopez Work Phone: [facility]11-11-2023 13:12-0500 Diastolic blood vssuruod98 mm[Hg]MD Yinka Lopez Work Phone: [facility]11-11-2023 13:12-0500 Heart rate87 /minMD Yinka Lopez Work Phone: [facility]11-11-2023 13:12-0500 Respiratory rate18 /minMD Yinka Lopez Work Phone: [phone]([phone]11-11-2023 13:12-0500 SaO2% (BldA) [Mass fraction]96 %MD Yinka Lopez Work Phone: 1(280)[facility]48[facility]11-11-2023 13:12-0500 Systolic blood tgzjjdxi885 mm[Hg]MD Yinka Lopez Work Phone: 1(403)[address]11-11-2023 07:58-0500 Body .48 cmNJ Yinka Berto Work Phone: 1(997)[address] [place], [place] 1348911-11-2023 07:58-0500 Body fepqsb12 kgMD Yinka Lopez Work Phone: 1(586)[address] [place], [place] 1348911-07-2023 09:00-0500 Body mass index (BMI) [Ratio]32.38 kg/h6Dterr Gregorio VISUAL MERCHANDISER-SALES DEVELOPMENT REPRESENTATIVE Work Phone: 1(216)[address] [place], [place] 6148311-07-2023 09:00-0500 Body eltrhnjyzxs62.7 [degF]Lisette Perkins VISUAL MERCHANDISER-SALES DEVELOPMENT REPRESENTATIVE Work Phone: 1(216)[address] [place], [place] 6148311-07-2023 09:00-0500 Body olzabc47.7 kgLisette Gregorio VISUAL MERCHANDISER-SALES DEVELOPMENT REPRESENTATIVE Work Phone: 1(216)[address] [place], [place] 6148311-07-2023 09:00-0500 Diastolic blood yqyufjvk42 mm[Hg]Lisette Perkins VISUAL MERCHANDISER-SALES DEVELOPMENT REPRESENTATIVE Work Phone: 1(216)[address] [place], [place] 6148311-07-2023 09:00-0500 Heart rate83 /minLinda Gregorio VISUAL MERCHANDISER-SALES DEVELOPMENT REPRESENTATIVE Work Phone: 1(216)[address] [place], [place] 6148311-07-2023 09:00-0500 Respiratory rate17 /minLinda Gregorio VISUAL MERCHANDISER-SALES DEVELOPMENT REPRESENTATIVE Work Phone: 1(216)[address] [place], [place] 6148311-07-2023 09:00-0500 SaO2% (BldA) [Mass fraction]100 %Lisette Perkins VISUAL MERCHANDISER-SALES DEVELOPMENT REPRESENTATIVE Work Phone: [facility]11-07-2023 09:00-0500 Systolic blood fkigtocj280 mm[Hg]Lisette GUTIERREZ Work Phone: [facility]10-12-2023 09:00-0400 Diastolic blood opymdwrj43 mm[Hg]Trae Koch MD Work Phone: [facility]10-12-2023 09:00-0400 Heart mrrh758 /minTrae Koch MD Work Phone: [facility]10-12-2023 09:00-0400 Systolic blood uccsfvbz415 mm[Hg]Trae Koch MD Work Phone: 1(197)[facility]02[facility]10-12-2023 08:54-0400 Body giblyanukcc57.7 [degF]Trae Koch MD Work Phone: 1(908)[facility]66[facility]10-12-2023 08:54-0400 Respiratory rate18 /minTrae Koch MD Work Phone: 1(907)075-71[facility]10-12-2023 08:54-0400 SaO2% (BldA) [Mass fraction]96 %Trae Koch MD Work Phone: [phone]([phone]10-12-2023 07:44-0400 Body mass index (BMI) [Ratio]32.57 kg/m2Trae Koch MD Work Phone: [phone]10-12-2023 07:44-0400 Body essvxn87.7 kgTrae Koch MD Work Phone: 1(414)179-79[facility]10-02-2023 23:03-0400 Body idvsgd848.4 cmAjani Koch MD Work Phone: 1(744)225-19[facility]09-20-2023 20:10-0400 Diastolic blood mm[Hg]MD Yinka Lopez Work Phone: [facility]09-20-2023 20:10-0400 Heart rate71 /minMD Yinka Lopez Work Phone: 1(072)[address] [place], [place] 1348909-20-2023 20:10-0400 Respiratory rate20 /minMD Yinka Lopez Work Phone: 1(327)[address] [place], [place] 1348909-20-2023 20:10-0400 SaO2% (BldA) [Mass fraction]98 %MD Yinka Lopez Work Phone: 1(652)[address] [place], [place] 1348909-20-2023 20:10-0400 Systolic blood kqzisusg718 mm[Hg]MD Yinka Lopez Work Phone: 1(931)[address] [place], [place] 1348909-20-2023 13:23-0400 Body eaxctb322.48 cmMD Yinka Thomaster Work Phone: 1(168)[address] [place], [place] 1348909-20-2023 13:23-0400 Body tdgmmgkozvy41.1 [degF]MD Yinka Lopez Work Phone: 1(545)[address] [place], [place] 1348909-20-2023 13:23-0400 Body axcoht85.19 kgMD Yinka Thomaster Work Phone: 1(133)[address] [place], [place] 1348909-15-2023 13:20-0400 Body uoqnphcqdoa15.5 [degF]MD Yinka Lopez Work Phone: 1(224)[address] [place], [place] 1348909-15-2023 13:20-0400 Diastolic blood siojnvxi18 mm[Hg]MD Yinka Lopez Work Phone: 1(153)[address] [place], [place] 1348909-15-2023 13:20-0400 Heart rate77 /minMD Yinka Thomaster Work Phone: 1(578)[address] [place], [place] 1348909-15-2023 13:20-0400 Respiratory rate17 /minMD Yinka Thomaster Work Phone: 1(867)[address] [place], [place] 1348909-15-2023 13:20-0400 SaO2% (BldA) [Mass fraction]99 %MD Yinka Lopez Work Phone: 1(454)[address] [place], [place] 1348909-15-2023 13:20-0400 Systolic blood mm[Hg]MD Yinka Lopez Work Phone: [facility]09-14-2023 14:30-0400 Body buzrzj793.48 cmKatie Holder Other [facility] Other 09-14-2023 14:30-0400Body mass index (BMI) [Ratio] 32.74 kg/e1LrvmtyqnhKatie Holder Other [facility] Other 09-14-2023 14:30-0400Body unbooetmsgj63.2 [degF] Katie Holder Other [facility] Other 09-14-2023 14:30-0400Body hvvejx47.19 kgKatie Holder Other [facility] Other 09-14-2023 14:30-0400Diastolic blood dsguylva87 mm[Hg] Katie Holder Other [facility] Other 09-14-2023 14:30-0400Systolic blood tmfqkozh984 mm[Hg] Katie Holder Other [facility] Other 09-06-2023 10:43-0400Body fvwbgyhueux69.7 [degF]MD Yinka Lopez Work Phone: [facility]09-06-2023 10:43-0400 Body .64 kgMD Yinka Lopez Work Phone: [facility]09-06-2023 10:43-0400 Diastolic blood jjvawalk98 mm[Hg]MD Yinka Lopez Work Phone: [facility]09-06-2023 10:43-0400 Heart rate83 /minMD Yinka Lopez Work Phone: 1(153)[address]09-06-2023 10:43-0400 Respiratory rate16 /minMD Yinka Lopez Work Phone: 1(070)[address] [place], [place] 1348909-06-2023 10:43-0400 SaO2% (BldA) [Mass fraction]96 %MD Yinka Lopez Work Phone: 1(079)[address] [place], [place] 1348909-06-2023 10:43-0400 Systolic blood eawdjyep441 mm[Hg]MD Yinka Lopez Work Phone: 1(166)[address] [place], [place] 1348908-09-2023 13:23-0400 Body bjnbrsosmna12.8 [degF]MD Yinka Lopez Work Phone: 1(309)[address] [place], [place] 1348908-09-2023 13:23-0400 Body ksopnk15.64 kgMD Yinka Lopez Work Phone: 1(652)[address] [place], [place] 1348908-09-2023 13:23-0400 Diastolic blood vsznkiku79 mm[Hg]MD Yinka Lopez Work Phone: 1(186)[address] [place], [place] 1348908-09-2023 13:23-0400 Heart rate77 /minMD Yinka Lopez Work Phone: 1(907)[address] [place], [place] 1348908-09-2023 13:23-0400 Respiratory rate16 /minMD Burks Lopez Work Phone: 1(225)[address] [place], [place] 1348908-09-2023 13:23-0400 SaO2% (BldA) [Mass fraction]98 %MD Yinka Lopez Work Phone: 1(870)621[facility]51[facility]08-09-2023 13:23-0400 Systolic blood jqfugmht817 mm[Hg]MD Yinka Lopez Work Phone: 1(033)[address] [place], [place] 1348906-15-2023 15:00-0400 Body nzuvoe906.48 cmKatie Holder Other [facility] Other [id number] 15:00-0400Body mass index (BMI) [Ratio] 32.74 kg/h9DajxloypzKatie Holder Other [facility] Other 06-15-2023 15:00-0400Body bniopcmuprt46.3 [degF] Katie Holder Other [facility] Other 06-15-2023 15:00-0400Body kscjac57.19 kgKatie Holder Other [facility] Other 06-15-2023 15:00-0400Diastolic blood eazuuxwd26 mm[Hg] Katie Holder Other [facility] Other 06-15-2023 15:00-0400Systolic blood ynejwtdl400 mm[Hg] Katie Holder Other [facility] Other 05-10-2023 08:56-0400Body thbtinvwaur74 [degF]MD Yinka Lopez Work Phone: [facility]05-10-2023 08:56-0400 Body nhbujm41.55 kgMD Yinka Lopez Work Phone: [facility]05-10-2023 08:56-0400 Diastolic blood jidpcqcj67 mm[Hg]MD Yinka Lopez Work Phone: [facility]05-10-2023 08:56-0400 Heart rate80 /minMD Yinka Lopez Work Phone: [facility]05-10-2023 08:56-0400 Respiratory rate16 /minMD Yinka Lopez Work Phone: [facility]05-10-2023 08:56-0400 SaO2% (BldA) [Mass fraction]98 %MD Yinka Lopez Work Phone: [facility]05-10-2023 08:56-0400 Systolic blood ejakvkrs235 mm[Hg]MD Yinka Lopez Work Phone: [facility]04-26-2023 14:30-0400 Body ivelff053.48 cmShanthiashlyn Howellraw Other [employer] Other 04-26-2023 14:30-0400Body mass index (BMI) [Ratio]33.1 kg/e1Wmfgbxyme Gallo Other [employer] Other 04-26-2023 14:30-0400Body .6 [degF] Katie Gallo Other [employer] Other 04-26-2023 14:30-0400Body ufxkdx12.1 kgKatie Maldonadow Other [employer] Other 04-26-2023 14:30-0400Diastolic blood rcyqtmqk03 mm[Hg] Katie Gallo Other [employer] Other 04-26-2023 14:30-6278LeK2% (BldA) [Mass fraction]96 % Katieignacio Holder Other [employer] Other 04-26-2023 14:30-0400Systolic blood oqwrwqkh406 mm[Hg] Katie Holder Other [employer] Other 04-25-2023 11:20-0400Diastolic blood rkrfzgqo71 mm[Hg] MD Yinka Lopez Work Phone: [facility]04-25-2023 11:20-0400 Heart rate69 /minMD Yinka Lopez Work Phone: 1(613)[address] [place], [place] 1348904-25-2023 11:20-0400 Respiratory rate16 /minMD uBrks Lopez Work Phone: 1(038)[address] [place], [place] 1348904-25-2023 11:20-0400 SaO2% (BldA) [Mass fraction]95 %MD Yinka Lopez Work Phone: 1(089)[address] [place], [place] 1348904-25-2023 11:20-0400 Systolic blood trowqqwn017 mm[Hg]MD Yinka Lopez Work Phone: 1(442)[address] [place], [place] 1348904-25-2023 08:59-0400 Body abxqii475.48 cmMD Yinka Lopez Work Phone: 1(380)[address] [place], [place] 1348904-25-2023 08:59-0400 Body yuwqbn34.1 kgMD Yinka Thomaster Work Phone: 1(794)[address] [place], [place] 1348904-19-2023 09:33-0400 Body axbisnovxrb09.8 [degF]MD Yinka Lopez Work Phone: 1(865)[address] [place], [place] 1348904-19-2023 09:33-0400 Body ypqbep18.55 kgMD Yinka Lopez Work Phone: 1(879)[address] [place], [place] 1348904-19-2023 09:33-0400 Diastolic blood arhybpih73 mm[Hg]MD Yinka Lopez Work Phone: 1(881)[address] [place], [place] 1348904-19-2023 09:33-0400 Heart rate82 /minMD Yinka Thomaster Work Phone: 1(939)[address] [place], [place] 1348904-19-2023 09:33-0400 Respiratory rate16 /minMD Burks Lopez Work Phone: 1(695)[address] [place], [place] 1348904-19-2023 09:33-0400 SaO2% (BldA) [Mass fraction]98 %MD Yinka Lopez Work Phone: 1(111)[address] [place], [place] 1348904-19-2023 09:33-0400 Systolic blood uckfszrj414 mm[Hg]MD Yinka Lopez Work Phone: 1(044)[address] [place], [place] 1348903-30-2023 12:09-0400 Body qpmrgjksisx55.5 [degF]MD Yinka Lopez Work Phone: 1(826)[address] [place], [place] 1348903-30-2023 12:09-0400 Diastolic blood kkesghwa68 mm[Hg]MD Yinka Lopez Work Phone: 1(152)[address] [place], [place] 1348903-30-2023 12:09-0400 Heart rate86 /minMD Yinka Thomaster Work Phone: 1(689)[address] [place], [place] 1348903-30-2023 12:09-0400 Respiratory rate18 /minMD Yinka Thomaster Work Phone: 1(757)[address] [place], [place] 1348903-30-2023 12:09-0400 SaO2% (BldA) [Mass fraction]96 %MD Yinka Lopez Work Phone: 1(178)[address] [place], [place] 1348903-30-2023 12:09-0400 Systolic blood pxxymjck810 mm[Hg]MD Yinka Lopez Work Phone: 1(894)[address] [place], [place] 1348903-30-2023 06:00-0400 Body .1 kgMD Yinka Thomaster Work Phone: 1(417)[address] [place], [place] 1348903-29-2023 06:33-0400 Body ectixg128.48 cmMD Yinka Thomaster Work Phone: 1(861)[address] [place], [place] 1348903-29-2023 06:20-0400 Diastolic blood toqxtwfb61 mm[Hg]MD Yinka Lopez Work Phone: 1(432)[address] [place], [place] 1348903-29-2023 06:20-0400 Heart rate86 /minMD Yinka Thomaster Work Phone: 1(424)[address] [place], [place] 1348903-29-2023 06:20-0400 Respiratory rate18 /minMD Yinka Thomaster Work Phone: 1(881)[address] [place], [place] 1348903-29-2023 06:20-0400 SaO2% (BldA) [Mass fraction]97 %MD Yinka Lopez Work Phone: 1(081)[address] [place], [place] 1348903-29-2023 06:20-0400 Systolic blood fnqtexjh951 mm[Hg]MD Yinka Lopez Work Phone: 1(916)[address] [place], [place] 1348903-29-2023 00:23-0400 Body vixufy954.48 cmMD Yinka Thomaster Work Phone: 1(565)[address] [place], [place] 1348903-29-2023 00:23-0400 Body ldsrsbdfbuz36.8 [degF]MD Yinka Lopez Work Phone: 1(183)[address] [place], [place] 1348903-29-2023 00:23-0400 Body nkeafb83.64 kgMD Yinka Lopez Work Phone: 1(812)[address] [place], [place] 1348903-10-2023 10:43-0500 Body tcuflsxtqfo60.8 [degF]MD Yinka Lopez Work Phone: 1(777)[address] [place], [place] 1348903-10-2023 10:43-0500 Body mabjuz98.2 kgMD Yinka Thomaster Work Phone: 1(575)[address] [place], [place] 1348903-10-2023 10:43-0500 Diastolic blood wngnlzul85 mm[Hg]MD Yinka Lopez Work Phone: 1(751)[address] [place], [place] 1348903-10-2023 10:43-0500 Heart rate87 /minMD Yinka Lopez Work Phone: 1(013)[address] [place], [place] 1348903-10-2023 10:43-0500 Respiratory rate16 /minMD Yinka Thomaster Work Phone: 1(025)[address] [place], [place] 1348903-10-2023 10:43-0500 SaO2% (BldA) [Mass fraction]98 %MD Yinka Lopez Work Phone: 1(439)[address] [place], [place] 1348903-10-2023 10:43-0500 Systolic blood qpabsosp696 mm[Hg]MD Yinka Lopez Work Phone: 1(724)[address] [place], [place] 1348902-24-2023 09:37-0500 Body wsvrfukppsj16.8 [degF]MD Yinka Lopez Work Phone: 1(208)[address] [place], [place] 1348902-24-2023 09:37-0500 Body .1 kgMD Yinka Thomaster Work Phone: 1(303)[address] [place], [place] 1348902-24-2023 09:37-0500 Diastolic blood xucvnjtb53 mm[Hg]MD Yinka Lopez Work Phone: 1(439)[address] [place], [place] 1348902-24-2023 09:37-0500 Heart rate89 /minMD Yinka Thomaster Work Phone: 1(938)[address] [place], [place] 1348902-24-2023 09:37-0500 Respiratory rate16 /minMD Yinka Thomaster Work Phone: 1(336)[address] [place], [place] 1348902-24-2023 09:37-0500 SaO2% (BldA) [Mass fraction]100 %MD Yinka Lopez Work Phone: 1(329)[address] [place], [place] 1348902-24-2023 09:37-0500 Systolic blood rhgdosma361 mm[Hg]MD Yinka Lopez Work Phone: 1(590)[address] [place], [place] 1348901-25-2023 10:48-0500 Body wguvbpamsny57.8 [degF]MD Yinka Lopez Work Phone: 1(033)[address] [place], [place] 1348901-25-2023 10:48-0500 Body ichfef34.7 kgMD Yinka Thomaster Work Phone: 1(664)[address] [place], [place] 1348901-25-2023 10:48-0500 Diastolic blood ntxiidis64 mm[Hg]MD Yinka Lopez Work Phone: 1(975)[address] [place], [place] 1348901-25-2023 10:48-0500 Heart rate84 /minMD Yinka Thomaster Work Phone: 1(105)[address] [place], [place] 1348901-25-2023 10:48-0500 Respiratory rate16 /minMD Yinka Thomaster Work Phone: 1(113)[address] [place], [place] 1348901-25-2023 10:48-0500 SaO2% (BldA) [Mass fraction]98 %MD Yikna Lopez Work Phone: 1(524)[address] [place], [place] 1348901-25-2023 10:48-0500 Systolic blood dahpxhmb616 mm[Hg]MD Yinka Lopez Work Phone: 1(152)[address] [place], [place] 1348912-28-2022 11:01-0500 Body nhcpomebsdo25.8 [degF]MD Yinka Lopez Work Phone: 1(675)[address] [place], [place] 1348912-28-2022 11:01-0500 Body ounflz50.3 kgMD Yinka Thomaster Work Phone: 1(897)[address] [place], [place] 1348912-28-2022 11:01-0500 Diastolic blood kmdspfba72 mm[Hg]MD Yinka Lopez Work Phone: 1(030)[address] [place], [place] 1348912-28-2022 11:01-0500 Heart rate83 /minMD Yinka Thomaster Work Phone: 1(305)[address] [place], [place] 1348912-28-2022 11:01-0500 Respiratory rate16 /minMD Yinka Thomaster Work Phone: 1(403)[address] [place], [place] 1348912-28-2022 11:01-0500 SaO2% (BldA) [Mass fraction]97 %MD Yinka Lopez Work Phone: 1(295)[address] [place], [place] 1348912-28-2022 11:01-0500 Systolic blood mm[Hg]MD Yinka Lopez Work Phone: 1(934)[address] [place], [place] 1348912-14-2022 11:24-0500 Body giufei917.99 cmMD Yinka Lopez Work Phone: 1(554)[address] [place], [place] 1348912-14-2022 10:29-0500 Body .99 cmMD Yinka Thomaster Work Phone: 1(904)[address] [place], [place] 1348912-14-2022 10:29-0500 Body luiijxdmjct99.1 [degF]MD Yinka Lopez Work Phone: 1(888)[address] [place], [place] 1348912-14-2022 10:29-0500 Body smwret78.9 kgMD Yinka Lopez Work Phone: 1(992)910-09[facility]12-14-2022 10:29-0500 Diastolic blood vmwikesy04 mm[Hg]MD Yinka Lopez Work Phone: 1(072)[facility]86[facility]12-14-2022 10:29-0500 Heart rate84 /minMD Yinka Lopez Work Phone: 1(702)[address] [place], [place] 1348912-14-2022 10:29-0500 Respiratory rate18 /minMD Yinka Lopez Work Phone: 1(242)[address] [place], [place] 1348912-14-2022 10:29-0500 SaO2% (BldA) [Mass fraction]98 %MD Yinka Lopez Work Phone: 1(959)[address] [place], [place] 1348912-14-2022 10:29-0500 Systolic blood nhsbofed131 mm[Hg]MD Yinka Lopez Work Phone: 1(382)[address] [place], [place] 1348912-12-2022 15:43-0500 Body hbiqmb157.5 cmJuan J Mendez MD Work Phone: [facility]12-12-2022 15:43-0500Body jiqwut12.01 kgJuan J Mendez MD Work Phone: [facility]12-12-2022 15:43-0500Diastolic blood zwaczkjv46 mm[Hg]Juan J Mendez MD Work Phone: [facility]12-12-2022 15:43-0500Heart rate84 /min Juan J Mendez MD Work Phone: [facility]12-12-2022 15:43-0500Systolic blood mm[Hg]Juan J Mendez MD Work Phone: [facility]11-23-2022 11:06-0500Body temperature 98 [degF]MD Yinka Lopez Work Phone: 1(064)164-63[facility]11-23-2022 11:06-0500 Body .2 kgMD Yinka Lopez Work Phone: 1(766)576-[address] [place], [place] 3293511-23-2022 11:06-0500 Diastolic blood pobooxtw28 mm[Hg]MD Yinka Lopez Work Phone: 1(267)[address] [place], [place] 1348911-23-2022 11:06-0500 Heart rate78 /minMD Yinka Thomaster Work Phone: 1(132)[address] [place], [place] 1348911-23-2022 11:06-0500 Respiratory rate18 /minMD Yinka Thomaster Work Phone: 1(519)[address] [place], [place] 1348911-23-2022 11:06-0500 SaO2% (BldA) [Mass fraction]98 %MD Yinka Lopez Work Phone: 1(759)[address] [place], [place] 1348911-23-2022 11:06-0500 Systolic blood avsgpeke883 mm[Hg]MD Yinka Lopez Work Phone: 1(076)[address] [place], [place] 1348911-16-2022 10:32-0500 Body mlmune58.8 kgMD Yinka Lopez Work Phone: 1(630)[address] [place], [place] 1348911-16-2022 09:57-0500 Body usjmikzhdtz29 [degF]MD Yinka Lopez Work Phone: 1(006)[address] [place], [place] 1348911-16-2022 09:57-0500 Diastolic blood vdsrkhwy77 mm[Hg]MD Yinka Lopez Work Phone: 1(614)[address] [place], [place] 1348911-16-2022 09:57-0500 Heart rate86 /minMD Yinka Lopez Work Phone: 1(534)[address] [place], [place] 1348911-16-2022 09:57-0500 Respiratory rate20 /minMD Yinka Thomaster Work Phone: 1(263)[address] [place], [place] 1348911-16-2022 09:57-0500 SaO2% (BldA) [Mass fraction]100 %MD Yinka Lopez Work Phone: 1(555)[address] [place], [place] 1348911-16-2022 09:57-0500 Systolic blood hiwpyqox024 mm[Hg]MD Yinka Lopez Work Phone: 1(674)[address] [place], [place] 1348910-19-2022 10:48-0400 Body .8 [degF]MD Yinka Thomaster Work Phone: 1(664)[address] [place], [place] 1348910-19-2022 10:48-0400 Body xaytrm22.28 kgMD Yinka Thomaster Work Phone: 1(437)[address] [place], [place] 1348910-19-2022 10:48-0400 Diastolic blood zftrotox40 mm[Hg]MD Yinka Lopez Work Phone: 1(203)[address] [place], [place] 1348910-19-2022 10:48-0400 Heart rate89 /minMD Burks Lopez Work Phone: 1(468)[address] [place], [place] 1348910-19-2022 10:48-0400 Respiratory rate16 /minMD Yinka Thomaster Work Phone: 1(070)[address] [place], [place] 1348910-19-2022 10:48-0400 SaO2% (BldA) [Mass fraction]99 %MD Yinka Lopez Work Phone: 1(552)[address] [place], [place] 1348910-19-2022 10:48-0400 Systolic blood srxgfedc702 mm[Hg]MD Yinka Lopez Work Phone: 1(859)[address] [place], [place] 1348910-06-2022 10:40-0400 Body dyntivkoktg84.4 [degF]MD Yinka Lopez Work Phone: 1(838)[address] [place], [place] 1348910-06-2022 10:40-0400 Body .95 kgMD Yinka Thomaster Work Phone: 1(286)[address] [place], [place] 1348910-06-2022 10:40-0400 Diastolic blood vipxfxod56 mm[Hg]MD Yinka Lopez Work Phone: 1(547)[address] [place], [place] 1348910-06-2022 10:40-0400 Heart rate69 /minMD Yinka Thomaster Work Phone: 1(492)[address] [place], [place] 1348910-06-2022 10:40-0400 Respiratory rate16 /minMD Yinka Thomaster Work Phone: 1(514)[address] [place], [place] 1348910-06-2022 10:40-0400 SaO2% (BldA) [Mass fraction]97 %MD Yinka Lopez Work Phone: 1(064)[address] [place], [place] 1348910-06-2022 10:40-0400 Systolic blood rqubkmci099 mm[Hg]MD Yinka Lopez Work Phone: 1(957)[address] [place], [place] 1348909-09-2022 09:35-0400 Body jdelmvpsijt59.7 [degF]MD Yinka Lopez Work Phone: 1(596)[address] [place], [place] 1348909-09-2022 09:35-0400 Body nezakr37.74 kgMD Yinka Lopez Work Phone: 1(548)[address] [place], [place] 1348909-09-2022 09:35-0400 Diastolic blood vofxdxbq07 mm[Hg]MD Yinka Lopez Work Phone: 1(355)[address] [place], [place] 1348909-09-2022 09:35-0400 Heart rate83 /minMD Yinka Lopez Work Phone: 1(430)[address] [place], [place] 1348909-09-2022 09:35-0400 Respiratory rate18 /minMD Yinka Thomaster Work Phone: 1(789)[address] [place], [place] 1348909-09-2022 09:35-0400 SaO2% (BldA) [Mass fraction]97 %MD Yinka Lopez Work Phone: 1(351)[address] [place], [place] 1348909-09-2022 09:35-0400 Systolic blood xuhhkptw210 mm[Hg]MD Yinka Lopez Work Phone: 1(066)[address] [place], [place] 1348909-08-2022 09:57-0400 Body omwavkhdydi81 [degF]MD Yinka Lopez Work Phone: 1(657)[address] [place], [place] 1348909-08-2022 09:57-0400 Body cgbnon35.1 kgMD Yinka Lopez Work Phone: 1(149)[address] [place], [place] 1348909-08-2022 09:57-0400 Diastolic blood rqjeljak01 mm[Hg]MD Yinka Lopez Work Phone: 1(683)[address] [place], [place] 1348909-08-2022 09:57-0400 Respiratory rate16 /minMD Yinka Lopez Work Phone: 1(781)084-16[facility]09-08-2022 09:57-0400 SaO2% (BldA) [Mass fraction]98 %MD Yinka Lopez Work Phone: 1(716)334-05[facility]09-08-2022 09:57-0400 Systolic blood lctkchha385 mm[Hg]MD Yinka Lopez Work Phone: 1(518)[address] [place], [place] 1348909-02-2022 11:28-0400 Heart rate69 /min Yinkashefali Lopez Work Phone: 1(480)[address]10-06-2021 11:02-0400 Body cigrta231.99 cmNJ Yinka Lopez Work Phone: 1(486)[address]07-02-2021 08:45-0400 Inhaled oxygen flow rate2 L/min Yinkashefali Lopez Work Phone: 1(292)[facility] [place] [address] Encounters Encounter DateEncounter TypeCare ProviderFacilityStart: 08-24-2025 End: 12-58-4966Ifgamhjrc encounterDaniel Nuvia DO [facility]Start: 08-22-2025 End: 45-23-9258Mzrcnm outpatient visit 25 minutesDaniel Nuvia DO [facility] Phone[facility]Comment on above:COPD with acute exacerbation (HCC) (Primary Dx); Pharyngitis, unspecified etiologyStart: 08-22-2025 End: 23-92-5601lyfesisxxxEYPGGC TRUITTNot AvailableStart: 08-17-2025 End: 90-28-5050oxxnhtdsrdISBK ANGELFacility:[facility]art: 08-16-2025 End: 11-85-4784Efcjlxwi Result EncounterFabiola Marinelli MD Work Phone: [facility] External Department UnsolicitedStart: 08-16-2025 End: 77-29-3208Wrsbhbbr Result EncounterFabiola Marinelli MD Work Phone: [facility] External Department UnsolicitedStart: 08-16-2025 End: 20-97-2443Mku Reese M [facility] Work Phone: Start: 08-16-2025 End: 41-33-1625tgkvqofxikAhsuc Baxter MD Work Phone: [facility] Work Phone: Start: 08-09-2025 End: 28-45-2857jewrhtolorOcvjl Baxter MD Work Phone: [facility] Work Phone: Start: 08-09-2025 End: 71-01-6153HgpsjnxuyKatie Flower APRN-[facility] Work Phone: Start: 08-09-2025 End: 41-98-0322Wmwgpbig Result EncounterFabiola Marinelli MD Work Phone: [facility] External Department UnsolicitedStart: 08-09-2025 End: 05-70-0732Qpbgyrvr Result EncounterFabiola Marinelli MD Work Phone: [facility] External Department UnsolicitedStart: 08-09-2025 Fabiola Flower [facility] Work Phone: Start: 23-91-7838gjvbtllpuqRnygkwkeo M McGraw [facility]: 08-02-2025 End: 14-89-5598Ijmgwjye Result EncounterFabiola Marinelli MD Work Phone: [facility] External Department UnsolicitedStart: 08-02-2025 End: 47-95-1370Wdhuxblf Result EncounterFabiola Marinelli MD Work Phone: [facility] External Department UnsolicitedStart: 07-27-2025 End: 04-86-1451klegmgnnwlPnhho Baxter MD Work Phone: [facility] Work Phone: Start: 07-27-2025 End: 56-00-0365Cep Reese M [facility] Ambulatory Work Phone: Start: 07-19-2025 End: 40-14-8593Rnfqkceb Result EncounterFabiola Marinelli MD Work Phone: [facility] External Department UnsolicitedStart: 07-19-2025 End: 38-06-0687Ijlromea Result EncounterFabiola Marinelli MD Work Phone: [facility] External Department UnsolicitedStart: 07-19-2025 End: 76-58-8329Doejn Baxter MD Work Phone: [phone]-Orgwxudaj Room Work Phone: Start: 07-19-2025 End: 58-62-8052Bkhhdrref department patient visitYinka Lopez MD Work Phone: [facility] Work Phone: Start: 07-19-2025 End: 65-15-7035zgwojnbqagQfisb Baxter MD Work Phone: [facility] Work Phone: Start: 07-19-2025 End: 22-29-4594Xhvtwfapm McGraw M [facility] CareStart: 07-12-2025 End: 96-29-5675Usbqkoxs Result EncounterFabiola Marinelli MD Work Phone: [facility] External Department UnsolicitedStart: 07-12-2025 End: 27-69-9424Xjdcgvov Result EncounterFabiola Marinelli MD Work Phone: [facility] External Department UnsolicitedStart: 07-05-2025 End: 23-38-1806Izlmkvpm Result EncounterFabiola Marinelli MD Work Phone: [facility] External Department UnsolicitedStart: 07-05-2025 End: 11-56-8300Qljzzruc Result EncounterFabiola Marinelli MD Work Phone: [facility] External Department UnsolicitedStart: 07-04-2025 End: 65-71-8879ykciqaeiexBxslgqb Juan Carlos WATERSFacility:FTMCStart: 06-22-2025 End: 19-92-9652Aooukygkwm hospital visit by [address] [place], [place] [address]Comment on above:Liver cell carcinomaStart: 06-22-2025 End: 62-16-3153fhompveptzYEGN M SAMMIEMercy Memorial Hospitaltart: 06-20-2025 End: 86-50-9725Lfdpikvs Result EncounterFabiola Marinelli MD Work Phone: [facility] External Department UnsolicitedStart: 06-20-2025 End: 46-85-8454Dlaxhlds Result EncounterFabiola Marinelli MD Work Phone: [facility] External Department UnsolicitedStart: 06-15-2025 End: 20-25-2641Fxbxat flowsheetDaniel Nuvia DO [facility] Phone: [facility] 340Start: 06-15-2025 End: 01-51-0649Wrpgve flowsheetDaniel Nuvia DO Work Phone: [facility] 340Start: 06-15-2025 End: 83-11-4407wkeqqggwcvFdydq Baxter MD Work Phone: [facility] Work Phone: Start: 06-15-2025 End: 47-92-0208Wvb Reese M [facility] Ambulatory Work Phone: Start: 06-15-2025 End: 21-38-5691Tjlvcb outpatient visit 15 minutesDaniel Nuvia DO Work Phone: [facility] 340Comment on above: Preoperative clearanceStart: 06-15-2025 End: 98-07-2942Nqyetzpgpieb stateDaniel Nuvia DO Work Phone: noPR HealthcareStart: 06-15-2025 End: 88-82-1813Ckesdrtsg McGraw M [facility] CareStart: 06-15-2025 End: 19-55-6321gqvmlylofeAuuuz Baxter MD Work Phone: [facility] Work Phone: Start: 06-14-2025 End: 98-79-6575Qyaooiwh Result EncounterFabiola Marinelli MD Work Phone: [facility] External Department UnsolicitedStart: 06-14-2025 End: 74-83-1504Mpikrztx Result EncounterFabiola Marinelli MD Work Phone: n[facility] External Department UnsolicitedStart: 06-12-2025 End: 56-65-3045Tciuaie encounter procedurePastephania VALENZUELA [facility] start: 06-12-2025 End: 85-85-1983DzvajlLhu Warchol [employer] SUPERVISOR Work Phone: noms POPULATION HEALTHComment on above: HyperchylomicronemiaStart: 06-07-2025 End: 82-28-3570Czpteaga Result EncounterFabiola Marinelli MD Work Phone: [facility] External Department UnsolicitedStart: 06-07-2025 End: 17-07-5377Dauwjpoa Result EncounterFabiola Marinelli MD Work Phone: [facility] External Department UnsolicitedStart: 06-07-2025 End: 58-65-8306UjuigoHug Warchol [employer] SUPERVISOR Work Phone: noms POPULATION HEALTHComment on above:Diabetes mellitus without complication (HCC); Hypertension, unspecified typeStart: 60-67-3783tkgivhduanLAFQFVQZX CHERYL SANCHEZ Facility:[facility]Start: 05-30-2025 End: 85-96-4849Pkbbcdlp Result EncounterFabiola Marinelli MD Work Phone: n[facility] External Department UnsolicitedStart: 05-30-2025 End: 42-91-9192Kpybdomi Result EncounterFabiola Marinelli MD Work Phone: [facility] External Department UnsolicitedStart: 05-30-2025 End: 59-56-0581Ciu Reese M [facility] Work Phone: Start: 05-30-2025 End: 62-34-9931xggfcmvppjBjrcd Baxter MD Work Phone: [facility] Work Phone: Start: 05-29-2025 End: 16-27-0723fxfgbiwjqvGfsna Baxter MD Work Phone: [facility] Work Phone: Start: 05-29-2025 End: 41-22-3920Komhfhrhk L Ly DO-[facility] Work Phone: Start: 05-26-2025 End: 83-28-6183mdxtigorqiEcnkm Baxter MD Work Phone: [facility] Work Phone: Start: 05-26-2025 End: 64-53-5427Efxsktzru McGraw M [facility] Work Phone: Start: 05-19-2025 End: 31-88-1138Aapapmthk encounterDanijose manuel Nuvia DO Work Phone: [facility] MEDICINEStart: 05-18-2025 Fabiola Flower MD-[facility] [place] Work Phone: Start: 05-18-2025 End: 48-42-7163uadmrcvthsBbvko Baxter MD Work Phone: [facility] Work Phone: Start: 05-18-2025 End: 64-38-7798Nhulwtinw McGraw M [facility] Palliat CareStart: 05-17-2025 End: 42-16-4282Fbxpqrlp Result EncounterFabiola Marinelli MD Work Phone: n[facility] External Department UnsolicitedStart: 05-17-2025 End: 46-29-8958Pzstlpnt Result EncounterFabiola Marinelli MD Work Phone: [facility] External Department UnsolicitedStart: 05-17-2025 End: 27-94-7940hwcguiysypSvlbu Baxter MD Work Phone: [facility] Work Phone: Start: 05-17-2025 End: 18-15-8471Bjgxml L Nuvia DO-Lab [facility] Work Phone: Start: 05-15-2025 End: 50-45-5125Ubnfmo flowsheetDaniel Nuvia DO Work Phone: [facility] MEDICINEStart: 05-15-2025 End: 04-80-7787Uodehl flowsheetDaniel Nuvia DO Work Phone: [facility] MEDICINEStart: 05-15-2025 End: 58-62-7155Qiuqhh outpatient visit 25 minutesDaniel Nuvia DO Work Phone: [facility] MEDICINEComment on above: Preoperative clearance (Primary Dx); Arm wound, left, initial encounterStart: 05-15-2025 End: 29-69-4793Nkinidxrlzrx stateDaniel Nuvia DO Work Phone: [facility] Work Phone: Start: 05-15-2025 End: 38-97-2539cogqztjxklWGSGOW TRUITTNot AvailableStart: 04-24-2025 End: 09-49-2691Kazopxxpt encounterJuan J Mendez MD Work Phone: [phone] InstituteComment on above:OrdersStart: 04-20-2025 End: 76-90-6654aecvrzgkucWjfmairut M [facility]ole[facility]yFacility:[facility]utetart: 04-20-2025 End: 09-74-6591Tqu Reese M [facility]ulatory Work Phone: Start: 04-17-2025 End: 33-84-0293Xeuywcyj Result EncounterFabiola Marinelli MD Work Phone: [facility] External Department UnsolicitedStart: 04-17-2025 End: 25-16-0702Bsnwvwwq Result EncounterFabiola Marinelli MD Work Phone: [facility] External Department UnsolicitedStart: 04-10-2025 End: 88-09-8229Vwmgyl flowsheetDaniel Nuvia DO Work Phone: n[facility] SEP FMStart: 04-10-2025 End: 92-63-7942Skfrwh flowsheetDaniel Nuvia DO Work Phone: [facility] SEP FMStart: 04-10-2025 End: 33-06-5134Grmzji outpatient visit 25 minutesDaniel Nuvia DO Work Phone: n[facility] SEP FMComment on above:Contusion of rib on left side, subsequent encounter (Primary Dx); Cough, unspecified type; COPD with acute exacerbation ([facility])Start: 04-10-2025 End: 04-71-7975dbvouppkruEZWLXR TRUITTNot AvailableStart: 03-29-2025 End: 25-62-1018tjptxtmxiyESHLES TRUITTNot AvailableStart: 03-29-2025 End: 55-51-0198Pbjwvk outpatient visit 25 minutesDaniel Nuvia DO Work Phone: [facility] SEP FMComment on above:Acute cystitis without hematuria (Primary Dx); Gastroesophageal reflux disease without esophagitis; Recurrent candidiasis of vaginaStart: 03-29-2025 End: 86-52-4566Eprcqa flowsheetDaniel Nuvia DO Work Phone: [facility] SEP FMStart: 03-29-2025 End: 75-87-4010Wmzyii flowsheetDaniel Nuvia DO Work Phone: [facility] SEP FMStart: 03-28-2025 End: 60-31-5546Yahlcewi Result EncounterFabiola Marinelli MD Work Phone: [facility] External Department UnsolicitedStart: 03-28-2025 End: 22-45-0698Zssfgkio Result EncounterFabiola Marinelli MD Work Phone: [facility] External Department UnsolicitedStart: 03-16-2025 End: 85-45-4075mowfmeisnfSxlbr Baxter MD Work Phone: [facility] Work Phone: Start: 03-16-2025 End: 03-40-0744Zibwg Baxter MD Work Phone: [facility] [place] [facility] Work Phone: Start: 00-18-1700Ccifa Baxter MD Work Phone: [facility] Palliat CareStart: 42-38-5740kggpeximekNbclijexi M McGrawFacility:[facility]utetart: 03-15-2025 End: 87-21-0740Qfjtknvx Result EncounterFabiola Marinelli MD Work Phone: n[facility] External Department UnsolicitedStart: 03-15-2025 End: 88-69-9490Cjnylfhm Result EncounterFabiola Marinelli MD Work Phone: [facility] External Department UnsolicitedStart: 03-14-2025 End: 56-55-8350Gxszbdlco encounterJoaquina Greer [employer] SUPERVISOR Work Phone: noms [facility] UCStart: 03-13-2025 End: 43-49-0832mpybyyckjiVDJIIYH R LACONISNot AvailableStart: 03-13-2025 End: 83-96-9282Bplfdw outpatient visit 25 minutesJoaquina Greer [employer] SUPERVISOR Work Phone: noms [facility] UCComment on above:Acute cystitis with hematuria (Primary Dx); DysuriaStart: 03-07-2025 End: 01-54-6190Mibsrxkb Result EncounterFabiola Marinelli MD Work Phone: n[facility] External Department UnsolicitedStart: 03-07-2025 End: 80-68-0121Upwmbcap Result EncounterFabiola Marinelli MD Work Phone: [facility] External Department UnsolicitedStart: 03-01-2025 End: 57-04-5024Iqccmq flowsheetDaniel Nuvia DO Work Phone: [facility] SEP FMStart: 03-01-2025 End: 52-98-5408Cewoaw flowsheetDaniel Nuvia DO Work Phone: [facility] SEP FMStart: 03-01-2025 End: 87-26-7272Vidgnbm encounter procedureDaniel Nuvia DO Work Phone: [facility] SEP FMComment on above:Medicare annual wellness visit, subsequent (Primary Dx); Chronic obstructive pulmonary disease, unspecified COPD type ([facility]/HCC); Seasonal allergic rhinitis due to pollen; Acute recurrent maxillary sinusitisStart: 03-01-2025 End: 14-13-0611wzzgxgnfszGUQFAU TRUITTNot AvailableStart: 02-15-2025 End: 95-09-3308Wiuufkms Result EncounterFabiola Marinelli MD Work Phone: [facility] External Department UnsolicitedStart: 02-15-2025 End: [id number] Result EncounterFabiola Marinelli MD Work Phone: noms External Department UnsolicitedStart: 02-14-2025 End: 17-20-7447vhdbeviwabQknnp Baxter MD Work Phone: [facility] Work Phone: Start: 02-14-2025 End: [id number] Baxter MD [facility] Phone: [facility] Work Phone: Start: 02-03-2025 End: 17-20-5294ptdmgdpdkvEehqc Baxter MD Work Phone: [facility] Work Phone: Start: 02-03-2025 End: 99-17-1825Wlaka Baxter MD Work Phone: [facility] Work Phone: Start: 02-01-2025 End: [id number] Anam Lopez MD Work Phone: [facility] SEP FMComment on above:Bronchitis (Primary Dx) Start: 11-06-8482nzoiskzvidBtzsbakyv M McGrawFacility:[facility]etart: [id number] Baxter MD Work Phone: [facility] Work Phone: Start: 01-30-2025 End: 58-29-6283Ayxuwahu Result EncounterFabiola Marinelli MD Work Phone: noms External Department UnsolicitedStart: 01-30-2025 End: 55-62-7743Viowiooq Result EncounterFabiola Marinelli MD Work Phone: noms External Department UnsolicitedStart: 01-20-2025 End: 89-35-9689LwmjagLhmfu A Baxter MD Work Phone: [facility] SEP FMComment on above:Seasonal allergic rhinitis due to pollenStart: 01-17-2025 End: 71-69-5493puhcpzpqjxNGHJZN TRCURLYTNot AvailableStart: 01-05-2025 End: 28-97-7171Ixnpccddnw hospital visit by physicianStj Ultrasound [address] [place], [place] [address]Comment on above:Liver cell carcinoma (Multi)Start: 01-05-2025 End: 25-04-1682qvxgffurszOTPJ [facility]: 01-05[facility]2025 End: 00-93-3796rmzkbmelhwMAOL [facility]: 01-05-2025 End: 62-56-3601Haepbdfaop hospital visit by physicianStj Ultrasound [address] [place], [place] [address]Comment on above:Liver cell carcinoma (Multi)Start: 01-05-2025 End: 37-05-5107nufqjrvezqAOLT Ching NICHOLASLake County [facility] Westtart: 01-03-2025 End: 83-89-5191Quxuyesw Result EncounterFabiola Marinelli MD Work Phone: noms External Department UnsolicitedStart: 01-03-2025 End: 42-43-8542Yanjhrcv Result EncounterFabiola Marinelli MD Work Phone: noms External Department UnsolicitedStart: 12-29-2024 End: 28-59-2697Griiutai Result EncounterFabiola Marinelli MD Work Phone: noms External Department UnsolicitedStart: 12-29-2024 End: 54-18-8340Exeoqfpw Result EncounterFabiola Marinelli MD Work Phone: noms External Department UnsolicitedStart: 12-29-2024 Yinka Lopez MD Work Phone: [facility] Work Phone: Start: 12-29-2024 End: 32-18-9813vorjtaecgtPjtnp Baxter MD Work Phone: [facility] Work Phone: Start: 12-29-2024 End: 59-39-7580Cxhcd Baxter MD Work Phone: [facility] Work Phone: Start: 12-23-2024 End: 13-06-0442ewkaczejuaJtzfs Baxter MD Work Phone: [facility] Work Phone: Start: 12-23-2024 End: 68-97-3981Koyku Baxter MD Work Phone: [facility] Work Phone: Start: 12-20-2024 End: 86-34-5274Bkvfz Baxter MD Work Phone: [facility] Work Phone: Start: 12-20-2024 End: 35-62-1016Banbkfwra department patient visitYinka Lopez MD Work Phone: [facility] Work Phone: Start: 12-20-2024 End: 49-89-0395Unidnj Garrett Lopez MD Work Phone: noms SEP FMStart: 12-20-2024 End: 84-29-2044Rfnguf flowsDeidra Lopez MD Work Phone: noms SEP FMStart: 12-20-2024 End: 01-82-9892Hirxso outpatient visit 40 minutesYinka Lopez MD Work Phone: noms SEP FMComment on above:Liver lesion (Primary Dx); Type 2 diabetes mellitus with other specified complication, without long-term current use of insulin (CMS/HCC); Class 1 obesity due to excess calories with serious comorbidity and body mass index (BMI) of 33.0 to 33.9 in adult; Seasonal allergic rhinitis due to pollen; Chronic obstructive pulmonary disease, unspecified COPD type (CMS/HCC); Other pancytopenia (CMS/HCC); Inhalant abuse, in remission (CMS/HCC); Vitamin D deficiency; 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) (CMS/HCC); Pre-op testingStart: 12-20-2024 End: 12-46-1176Vruvppi encounter statusYinka Lopez MD Work Phone: noms HealthcareStart: 12-20-2024 End: 67-74-0086dzqakeakquNJYUS A BAXTERNot AvailableStart: 62-63-5771Gmdpi Baxter MD Work Phone: [facility] Work Phone: Start: 12-07-2024 End: 16-61-5851Onnpmzns Result EncounterFabiola Marinelli MD Work Phone: noms External Department UnsolicitedStart: 12-07-2024 End: 27-95-3343Ygstiqek Result EncounterFabiola Marinelli MD Work Phone: noms External Department UnsolicitedStart: 12-06-2024 End: 74-08-6984BjajupJjp Warchol GLASS CUT OFF SUPERVISOR Work Phone: noms POPULATION HEALTHComment on above:Type 2 diabetes mellitus with other specified complication, without long-term current use of insulin (CMS/HCC); Class 1 obesity due to excess calories with serious comorbidity and body mass index (BMI) of 33.0 to 33.9 in adultStart: 12-01-2024 End: 02-77-5335rhqymktbwkKRT WARCHOLNot AvailableStart: 12-01-2024 End: 83-12-7877Oellys outpatient visit 25 minutesFabiola Palumbo NP Work Phone: noms [facility] FMComment on above:Upper respiratory tract infection, unspecified type (Primary Dx); Type 2 diabetes mellitus with diabetic chronic kidney disease (CMS/HCC); Chronic kidney disease, stage 3a (HCC) (CMS/HCC); Multiple myeloma not having achieved remission (CMS/HCC); Paroxysmal atrial fibrillation (CMS/HCC); Unspecified cirrhosis of liver (CMS/HCC); Chronic obstructive pulmonary disease, unspecified (CMS/HCC); Gastroesophageal reflux disease without esophagitis; Chronic obstructive pulmonary disease, unspecified COPD type (CMS/HCC) [J44.9] Start: 11-29-2024 End: 03-93-3428Zpzzslszgr hospital visit by physicianSrenaldo Ir Consult [facility] HospitalComment on above:Monoclonal gammopathy; Liver cell carcinoma (Multi)Start: 11-28-2024 End: 59-53-1186Xptdxq outpatient new 30 minutesKapil Mortensen VISUAL MERCHANDISER-SALES DEVELOPMENT REPRESENTATIVE Work Phone: [facility] HospitalComment on above: Bleeding internal hemorrhoids (Primary Dx); Anal painStart: 11-28-2024 End: 11-61-7246ppwzjobvvlZDTGS M WOCONISHElyria Memorial Hospitaltart: 11-16-2024 End: 95-14-1401Dkpbqhjh Result EncounteraFbiola Marinelli MD Work Phone: noms External Department UnsolicitedStart: 11-16-2024 End: 27-98-6524Jecawsxy Result EncounterFabiola Marinelli MD Work Phone: noms External Department UnsolicitedStart: 11-16-2024 End: 83-73-6621NuupnmGbh Omidgordon GLASS CUT OFF SUPERVISOR Work Phone: RO POPULATION HEALTHComment on above:Seasonal allergic rhinitis due to pollenStart: 11-16-2024 End: 83-82-8843yekxjftudgQzicv Baxter MD Work Phone: [facility] Work Phone: Start: 11-16-2024 End: 37-16-3545Wvkvf Baxter MD Work Phone: [facility] Work Phone: Start: 10-27-2024 End: 85-89-9918Ybmsmerd Result EncounterFabiola Marinelli MD Work Phone: noms External Department UnsolicitedStart: 10-27-2024 End: 78-58-8736Ehdazvrm Result EncounterFabiola Marinelli MD Work Phone: noms External Department UnsolicitedStart: 10-24-2024 End: 66-06-0454Akgwz Baxter MD Work Phone: [facility] [place] Work Phone: Start: 10-24-2024 End: 03-46-2201jvoabudwzqNuukg BaxterFacility:[facility] Start: 10-21-2024 End: 13-43-6360Ogtnu Baxter MD Work Phone: [facility] Work Phone: Start: 10-18-2024 End: 32-30-5940Hguqjtcd Result EncounterFabiola Marinelli MD Work Phone: noms External Department UnsolicitedStart: 10-18-2024 End: 87-18-0688Otqxrypd Result EncounterFabiola Marinelli MD Work Phone: noms External Department UnsolicitedStart: 10-05-2024 End: 26-21-7615Yjuhk Baxter MD Work Phone: [facility] Work Phone: Start: 10-04-2024 End: 58-58-1015Wggpjbqf Result EncounterFabiola Marinelli MD Work Phone: noms External Department UnsolicitedStart: 10-04-2024 End: 47-45-4558Vsyigjnk Result EncounterFabiola Marinelli MD Work Phone: noms External Department UnsolicitedStart: 09-27-2024 End: 78-19-7973Pcmllzbz Result EncounterFabiola Marinelli MD Work Phone: noms External Department UnsolicitedStart: 09-27-2024 End: 59-59-3997Osmuxtnl Result EncounterFabiola Marinelli MD Work Phone: noms External Department UnsolicitedStart: 09-19-2024 End: 82-50-0654Mybmb Baxter MD Work Phone: [facility]Ul[facility]ound [facility] [place] Work Phone: Start: 09-19-2024 End: 23-98-3568algusavwkvDofct Baxter MD Work Phone: [facility] Work Phone: Start: 09-15-2024 End: 26-18-1573abhzlmcyqgPqkwt Baxter MD Work Phone: [facility] Work Phone: Start: 09-15-2024 End: 58-82-2435Jksqv Baxter MD Work Phone: [facility] Work Phone: Start: 09-14-2024 End: 49-51-9098jborrwukatLuwtr Baxter MD Work Phone: [facility] Work Phone: Start: 09-14-2024 End: 72-12-4846Qrljv Baxter MD Work Phone: [facility] Work Phone: Start: 09-06-2024 End: 95-90-7988pvnkuczlcfOYEP [facility]: 09-06-2024 End: 86-38-6439Fjknvw outpatient visit 40 minutesLisette Perkins VISUAL MERCHANDISER-SALES DEVELOPMENT REPRESENTATIVE Work Phone: [facility] HospitalComment on above:Multiple myeloma not having achieved remission (Multi) (Primary Dx)Start: 09-06-2024 End: 60-73-4222dwagcmdtfbSWPJW [facility]: 08-26-2024 End: 38-50-9841yzbfvenzusCF Brian Baxter Work Phone: [facility] Work Phone: Start: 08-26-2024 End: 89-65-6426UMMD Yinka Lopez Work Phone: [facility] Work Phone: Start: 08-25-2024 End: 35-07-7948Miidsu outpatient new 60 minutesFredric H Itzkowitz DO Work Phone: noms GENSComment on above:Chronic obstructive pulmonary disease, unspecified COPD type (CMS/HCC) (Primary Dx); Bleeding hemorrhoids; Multiple myeloma not having achieved remission (CMS/HCC); 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) (CMS/HCC); Lymphopenia; Thrombocytopenia (CMS/HCC)Start: 08-25-2024 End: 52-81-1626sigfqemsmjJWJMZXS H ITZKOWITZNot AvailableStart: 08-23-2024 End: 42-63-8500Sfvdayu encounter statusFabiola Palumbo GLASS CUT OFF SUPERVISOR Work Phone: [facility] Work Phone: Start: 08-23-2024 End: 02-53-8182Gbhanjlpq encounterFabiola Palumbo GLASS CUT OFF SUPERVISOR Work Phone: noms SEP FMStart: 08-23-2024 End: 40-31-1241Vskrcn outpatient visit 25 minutesAmy Deepali GLASS CUT OFF SUPERVISOR Work Phone: noms SEP FMComment on above:Type 2 diabetes mellitus with other specified complication, without long-term current use of insulin (CMS/HCC) (Primary Dx); Gastroesophageal reflux disease without esophagitis; History of exposure to tuberculosis; Chronic cough; Class 1 obesity due to excess calories with serious comorbidity and body mass index (BMI) of 33.0 to 33.9 in adultStart: 08-16-2024 End: 35-48-6163Tjdbvx outpatient visit 40 minutesSupa Lindquist MD PhD Work Phone: [facility] HospitalComment on above:Multiple myeloma not having achieved remission (Multi)Start: 08-16-2024 End: 66-25-9654wsqqyjxsnyWWUI VAN BESIENElyria Memorial Hospitaltart: 08-08-2024 End: 11-34-5902Asfmryzj Result EncounterJessica R Premause GLASS CUT OFF SUPERVISOR Work Phone: noms External Department UnsolicitedStart: 08-08-2024 End: 82-52-5276Gnxyriou Result EncounterJessica R Lause GLASS CUT OFF SUPERVISOR Work Phone: noms External Department UnsolicitedStart: 08-08-2024 End: 05-79-3234brobrkvjjiMB Yinka Lopez Work Phone: [facility] Work Phone: Start: 08-08-2024 End: 79-90-6807XF Yinka Lopez Work Phone: [facility] [place] Work Phone: Start: 07-26-2024 End: 32-68-7571meifyxinqrQGOR [facility]: 07-26-2024 End: 64-51-3240Qrfijj outpatient visit 40 minutesLisette Perkins APRN-SALES DEVELOPMENT REPRESENTATIVE Work Phone: [facility] HospitalComment on above:Multiple myeloma, remission status unspecified (Multi) (Primary Dx)Start: 07-26-2024 End: 61-49-7200vcopceegjwBESNJ [facility]ictart: 07-20-2024 End: 98-40-5365Btdtjw outpatient visit 25 minutesLetty Newsome GLASS CUT OFF SUPERVISOR Work Phone: noms SEP FMComment on above:Bleeding hemorrhoids (Primary Dx); Cough in adult; Chronic cough; Chronic obstructive pulmonary disease, unspecified COPD type (CMS/HCC); Essential hypertension (CMS/HCC); Paroxysmal atrial fibrillation (CMS/HCC); HypersomnolenceStart: 07-19-2024 End: 16-01-2606Qohmtlgcr encounterFabiola Palumbo GLASS CUT OFF SUPERVISOR Work Phone: noms SEP FMStart: 07-18-2024 End: 53-04-6495Bahswzm encounter Iva Mendez MD Work Phone: CardiologyComment on above:Nonrheumatic aortic valve stenosis (Primary Dx); Aneurysm of ascending aorta without rupture (HCC)Start: 07-05-2024 End: 65-05-4711Jmbnmg outpatient visit 40 Angi Lindquist MD PhD Work Phone: [facility] HospitalComment on above:Multiple myeloma not having achieved remission (Multi)Start: 07-05-2024 End: 11-48-7591bszetaggtaMJJI [facility] Systemtart: 06-29-2024 End: 31-80-1770shmiwkiknzRX John A Smith Work Phone: [facility] Work Phone: Start: 06-29-2024 End: 06-17-8242LSMD Ez Delgado Work Phone: [facility] Work Phone: Start: 06-29-2024 End: 20-41-6966emqpmlusthUJ John A Smith Work Phone: [facility] Work Phone: Start: 06-29-2024 End: 36-44-1221VXMD Ez Delgado Work Phone: [facility] Work Phone: Start: 19-11-1458ADMD Ez Delgado Work Phone: [facility] Work Phone: Start: 06-28-2024 End: 59-76-9716ssnvgsjpqyYU John A Smith Work Phone: [facility] Work Phone: Start: 06-28-2024 End: 44-17-8127Xpuyrxj encounter procedureMD Ez Delgado Work Phone: [facility] Work Phone: Start: 06-28-2024 End: 55-54-5006FVMD Ez Delgado Work Phone: [facility] Work Phone: Start: 06-27-2024 End: 53-99-9826Dbvmfdvki encounterAmy Warchol GLASS CUT OFF SUPERVISOR Work Phone: [facility] SEP FMStart: 06-27-2024 End: 72-94-6459tnifbqzgsqJO John A Smith Work Phone: [facility] Work Phone: Start: 06-27-2024 End: 37-33-0464Bcayheb encounter procedureMD Ez Delgado Work Phone: [facility] Work Phone: Start: 06-27-2024 End: 77-27-3808FRMD Ez Delgado Work Phone: [facility] Work Phone: Start: 06-20-2024 End: 63-32-6181Gnvmqn outpatient visit 25 minutesFabiola Palumbo GLASS CUT OFF SUPERVISOR Work Phone: [facility] FMComment on above:Type 2 diabetes mellitus with other specified complication, unspecified whether penitentiary insulin use (CMS/HCC) (Primary Dx); BMI 28.0-28.9,adult; Viral upper respiratory tract infection; Hypertension, unspecified type (CMS/HCC)Start: 06-14-2024 End: 15-75-9451jhpdgehnfwOAJVToledo Hospitaltart: 05-30-2024 End: 66-29-7544crqflcbqadGC Ez Delgado Work Phone: [facility] Work Phone: Start: 05-30-2024 End: 94-24-6413Tdinfxb encounter procedureMD Ez Delgado Work Phone: [facility] Work Phone: Start: 05-30-2024 End: 96-08-5497RUMD Ez Delgado Work Phone: [facility] Work Phone: Start: 05-24-2024 End: 86-14-8161iqieuujskzKBNKToledo Hospitaltart: 05-10-2024 End: 60-97-6162Xbxbop outpatient visit 40 minutesSupa Lindquist MD PhD Work Phone: [facility] HospitalComment on above:Multiple myeloma not having achieved remission (Multi); Multiple myeloma, remission status unspecified (Multi)Start: 05-10-2024 End: 99-61-5826fmkabznncqTIIIToledo Hospitaltart: 05-10-2024 End: 03-43-2810iftufmerpcJFTEMemorial Hospitaltart: 04-18-2024 End: 85-35-2190Ebs-patient / Non-visitMD Ez Delgado Work Phone: [facility] Work Phone: Start: 04-18-2024 End: 09-36-7150JC Yinka Lopez Work Phone: [facility] Work Phone: Start: 04-13-2024 End: 73-92-4867Nfs-patient / Non-visitMD Ez Delgado Work Phone: [facility] Work Phone: Start: 04-13-2024 End: 95-55-8960TU Yinka Lopez Work Phone: [facility] Work Phone: Start: 04-11-2024 End: 89-13-6898Fng-patient / Non-visitMD Ez Delgado Work Phone: [facility] Work Phone: Start: 04-11-2024 End: 59-95-3249FL Yinka Lopez Work Phone: [facility] Work Phone: Start: 32-26-4554Akgrclfkf Edgar Mendez MD Work Phone: CardiologyComment on above:AppointmentStart: 04-11-2024 End: 62-15-9717Cdv-patient / Non-visitMD Ez Delgado Work Phone: [facility] Work Phone: Start: 04-11-2024 End: 96-44-8927PX Yinka Lopez Work Phone: [facility] Work Phone: Start: 04-11-2024 End: 79-08-3477Max-patient / Non-visitMD Ez Delgado Work Phone: [facility] Work Phone: Start: 04-11-2024 End: 92-40-5658NO Yinka Thomaster Work Phone: [facility] Work Phone: Start: 04-10-2024 End: 37-14-5134Zlbgghmbcc and management of inpatientMD Yinka Lopez Work Phone: [facility] Work Phone: Start: 04-10-2024 End: 62-87-1946UY Yinka Lopez Work Phone: [facility] Work Phone: Start: 04-05-2024 End: 01-02-4078jpytrgyiwiXWSUOhioHealth Riverside Methodist Hospitaltart: 03-24-2024 End: 24-48-6266nudokhithlSW Yinka Lopez Work Phone: [facility] Work Phone: Start: 03-24-2024 End: 52-53-4216Vomorwr encounter procedureMD Yinka Lopez Work Phone: [facility] Work Phone: Start: 03-24-2024 End: 72-31-6133MU Yinka Lopez Work Phone: [facility] Work Phone: Start: 03-22-2024 End: 85-12-6783gfaqdqvuwdSGXCOhioHealth Riverside Methodist Hospitaltart: 03-22-2024 End: 77-61-3676Flappi outpatient visit 40 minutesSupa Lindquist MD PhD Work Phone: [phone] [place], [place] [address]Comment on above:Multiple myeloma not having achieved remission (Multi)Start: 03-22-2024 End: 07-42-5890kbzyopbbzsPWRGToledo Hospitaltart: 03-21-2024 End: 55-24-9453eyebshbxuiAD Yinka Lopez Work Phone: [facility] Work Phone: Start: 03-21-2024 End: 88-49-4338Jsgutmf encounter procedureMD Yinka Lopez Work Phone: [facility] Work Phone: Start: 03-21-2024 End: 95-72-9532JS Yinka Lopez Work Phone: [facility] Work Phone: Start: 03-08-2024 End: 32-12-8503qdalfhbxuyZEFDToledo Hospitaltart: 42-48-4864Pnl-patient / Non-visitMD Yinka Lopez Work Phone: [facility] Work Phone: Start: 38-02-6151ML Yinka Lopez Work Phone: [facility] Work Phone: Start: 78-94-9066Ddhjssqien RecurringMD Yinka Lopez Work Phone: [facility] Work Phone: Start: 53-70-2092SG Yinka Lopez Work Phone: [facility] Work Phone: Start: 02-23-2024 End: 20-91-0446pufwpcshubSQWYToledo Hospitaltart: 02-23-2024 End: 90-49-2375Cvscbt outpatient visit 40 minutesSupa Lindquist MD PhD Work Phone: [facility] HospitalComment on above:Multiple myeloma not having achieved remission (Multi)Start: 02-23-2024 End: 60-12-4534euecuhoajoVSRNOhioHealth Riverside Methodist Hospitaltart: 02-16-2024 End: 59-02-9514nlbjbhujxlBJTUToledo Hospitaltart: 02-11-2024 End: 84-34-4125bggqsoamwjFN Yinka Thomaster Work Phone: [facility] Work Phone: Start: 02-11-2024 End: 71-05-6666Wditjcr encounter procedure Yinka Thomaster Work Phone: [facility] [place] Work Phone: Start: 02-11-2024 End: 34-36-0052RH Yinka Thomaster Work Phone: [facility] [place] Work Phone: Start: 02-09-2024 End: 86-78-1707Wvuzwpsxwz hospital visit by physician[address] MatherComment on above:Multiple myeloma not having achieved remission (CMS/HCC)Start: 02-09-2024 End: 23-27-0241Eywhxz outpatient visit 40 Adamaris Perkins APRN-SALES DEVELOPMENT REPRESENTATIVE Work Phone: [facility] HospitalComment on above:Multiple myeloma not having achieved remission (Multi) (Primary Dx); 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) (Multi); Secondary hypertension; Hyperlipidemia, unspecified hyperlipidemia type; Type 2 diabetes mellitus without complication, without long-term current use of insulin (Multi); Immunodeficiency disorder (Multi); Fibromyalgia; Drug-induced polyneuropathy (Multi)Start: 02-09-2024 End: 12-08-8202cqhnccruioSEGZToledo Hospitaltart: 02-09-2024 End: 59-15-5982bvlzjsflzfUHWJZ [facility]ictart: 01-26-2024 End: 08-19-9075svcvmyrablLOCEA [facility] Clinictart: 74-60-0503Suumbuqjrq RecurringMD Yinak Lopez Work Phone: [facility] [facility] Work Phone: Start: 61-95-8221Hmytuumylv RecurringMD Yinka Lopez Work Phone: [facility] Work Phone: Start: 01-21-2024 End: 16-29-0234tiugioyzhyPP Yinka Lopez Work Phone: [facility] Work Phone: Start: 01-21-2024 End: 67-72-5173Sznkzti encounter procedureMD Yinka Lopez Work Phone: [facility] Work Phone: Start: 01-21-2024 End: 11-56-3825KW Yinka Lopez Work Phone: [facility] Work Phone: Start: 01-21-2024 End: 67-02-7438lfpxandkyeAR Yinka Lopez Work Phone: [facility] Work Phone: Start: 01-21-2024 End: 68-16-3601Zutsakj encounter procedureMD Yinka Lopez Work Phone: [facility] Work Phone: Start: 01-21-2024 End: 93-63-2254QD Yinka Lopez Work Phone: [facility] Work Phone: Start: 98-26-5157Yaxcxbkhnv RecurringMD Yinka Lopez Work Phone: [facility] Work Phone: Start: 01-19-2024 End: 72-87-9550ofnhoxtwhqECQVToledo Hospitaltart: 01-12-2024 End: 69-90-3126Lvnknq outpatient visit 40 minutesLisette Perkins VISUAL MERCHANDISER-SALES DEVELOPMENT REPRESENTATIVE Work Phone: [facility] HospitalComment on above: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) (CMS/HCC) (Primary Dx); Immunodeficiency disorder (CMS/HCC); Drug-induced polyneuropathy (CMS/HCC); Depression, unspecified depression typeStart: 01-12-2024 End: 08-56-5730udriugvtehTQLMKGuernsey Memorial Hospitaltart: 12-31-2023 End: 06-52-6411Fohjcyq encounter procedureMD Yinka Thomaster Work Phone: [facility] Work Phone: Start: 12-29-2023 End: 91-44-0367Zyzdwb outpatient visit 40 roxannaLisette Perkins VISUAL MERCHANDISER-SALES DEVELOPMENT REPRESENTATIVE Work Phone: [facility] HospitalComment on above: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) (CMS/HCC) (Primary Dx); Multiple myeloma not having achieved remission (CMS/HCC); Immunodeficiency disorder (CMS/HCC)Start: 12-29-2023 End: 16-79-9232zoiwjafihwFPVVToledo Hospitaltart: 12-17-2023 End: 08-19-2851Macgfeubq department patient visit Yinka Thomaster Work Phone: [facility]-Emergency Room Work Phone: Start: 12-15-2023 End: 36-96-4315xlthmiqzwtEOMAToledo Hospitaltart: 12-08-2023 End: 63-66-2062iwhbsvblycFIAYToledo Hospitaltart: 12-07-2023 End: 55-54-1911ffwcxosdnaDvgmhbrub McGraw Other NoVisante Coveo Other Start: 30-23-1088Axcrcfkjk encounterKatie MAYNARD Palliative CareStart: 11-27-2023 End: 62-01-7615Tofinh outpatient visit 40 minuteseDreams Edusoft Work Phone: [facility] HospitalComment on above: Immunodeficiency disorder (CMS/HCC) (Primary Dx); Multiple myeloma not having achieved remission (CMS/HCC); 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) (CMS/HCC); Thrombocytopenia (CMS/HCC)Start: 11-18-2023 End: 65-85-5263Vaycgfsatn and management of inpatientKoanamaria Lindquist MD PhD Work Phone: [facility] 3Comment on above:Multiple myeloma not having achieved remission (CMS/HCC) (Primary Dx); Multiple myeloma, remission status unspecified (CMS/HCC); Depression, unspecified depression typeStart: 11-17-2023 End: 82-21-7343Cfprwf outpatient visit 40 minuteseDreams Edusoft Work Phone: [facility] HospitalComment on above:Multiple myeloma not having achieved remission (CMS/HCC) (Primary Dx); Immunosuppressed status (CMS/HCC)Start: 01-91-3571Bxuhqzwbz encounterKatie VoraG Palliative CareStart: 11-04-2023 End: 87-57-3597cybwtiexxiEZ Brian Baxter Work Phone: NoVisante Coveo Other Start: 11-04-2023 End: 08-07-1006Ullqtcc encounter procedureMD Yinka Lopez Work Phone: [facility] [place] Work Phone: Start: 26-60-6166Jvazdcceci RecurringMD Yinka Lopez Work Phone: [facility] Work Phone: Start: 10-22-2023 End: 26-96-8395Cnywinl encounter procedureMD Yinka Lopez Work Phone: [facility] Work Phone: Start: 10-21-2023 End: 04-92-7356kygmlzgilhMG Yinka Lopez Work Phone: [facility] Work Phone: Start: 10-21-2023 End: 16-23-8605DM Yinka Lopez Work Phone: [facility] Work Phone: Start: 10-07-2023 End: 90-74-8392jxonnsrcydRvonmjsoj Gallo Other [employer] Other Start: 00-00-9516Wekjzldju encounterKatherine Gallo [facility] CareStart: 10-06-2023 End: 85-57-4406Zgpdtm outpatient visit 40 Angi Lindquist MD PhD Work Phone: [facility]:Multiple myeloma not having achieved remission (CMS/HCC)Start: 09-23-2023 End: 00-99-3280vnmqordenlUifttabkg Gallo Other [employer] Other Start: 07-13-4686Tnuqoyjui encounterKatherine Gallo [facility] CareStart: 09-21-2023 End: 36-48-5579yxbvdvhaheRngtddzcv Gallo Other [employer] Other Start: 22-19-2377Fcuhvooss encounterKatherine Gallo [facility] CareStart: 09-12-2023 End: 15-00-7669Mgbddnhqy department patient visitMD Yinka Lopez Work Phone: [facility] Work Phone: Start: 09-12-2023 End: 90-66-9237BN Yinka Lopez Work Phone: [facility] Work Phone: Start: 09-08-2023 End: 17-13-2774Vhuwgm outpatient visit 40 minutesLisette Perkins VISUAL MERCHANDIS[employer]SALES DEVELOPMENT REPRESENTATIVE Work Phone: [facility] HospitalComment on above:Multiple myeloma not having achieved remission (CMS/HCC); Multiple myeloma, remission status unspecified (CMS/HCC)Start: 08-17-2023 End: 89-71-3851Igagbn outpatient visit [facility] ChildrenComment on above:Multiple myeloma not having achieved remission (CMS/HCC) (Primary Dx); Pancytopenia (CMS/HCC); Immunosuppressed status (CMS/HCC); Multiple myeloma, remission status unspecified (CMS/HCC)Start: 08-14-2023 End: 75-18-4868Fszvmp outpatient visit 40 minutes[facility] for ChildrenComment on above: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) (Primary Dx); Immunosuppressed status (CMS/HCC); Pancytopenia (CMS/HCC)Start: 08-03-2023 End: 11-41-2524Kblzrvcqdw and management of inpatientAli Amando Koch MD Work Phone: [facility] 3Start: 41-24-6857dnuandjepntheresa LindquistFacility:CStart: 07-22-2023 End: 78-56-5206Qgszccqkq department patient visit Yinka Lopez Work Phone: [facility] Work Phone: Start: 89-97-7465Jejhirudak RecurringMD Yinka Lopez [facility] Work [facility]: Start: 07-16-2023 End: 16-61-9410vongmduijzUnjnjyybh Gallo Other noVisante [employer] Other Start: 07-62-8479Jsvhwh outpatient visit 25 minutes Katie HowellledyFPG Palliative CareStart: 07-08-2023 End: 09-55-1173tyvxjwpaafKI Yinka Lopez Work Phone: [facility] Work Phone: Start: 07-08-2023 End: 83-72-6050OT Yinka Lopez Work Phone: [facility] Work Phone: Start: 07-01-2023 End: 73-26-1709rhecitkhdyJfiptqqra Gallo Other [facility] [employer] Other Start: 63-34-1664Hzmrrppbo encounterKatherine Gallo [facility] Palliative CareStart: 02-53-2551fkrmkmhbtpBs. Yinka Woodcility:[facility] Start: 85-33-6746onpifpxpnlEfErna Woodcility:[facility]ITALtart: 06-10-2023 End: 58-48-9422fenhzngmdrXR Yinkashefali Lopez Work Phone: [facility] Work Phone: Start: 06-10-2023 End: 83-43-3721UK Yinka Lopez Work Phone: [facility] Work Phone: Start: 06-03-2023 End: 77-46-1515ywspqzexreDdaqudrsa Gallo Other [facility] [employer] Other Start: 78-99-4231Mdhnhvyjb encounterKatherine Gallo [facility] CareStart: 53-18-3598dygfeagetjQxulatoryDr. Yinka LopezFacility:[facility] Start: 04-30-2023 End: 46-32-0519ejpgdftooiQkmfabcpj Gallo Other [employer] Other Start: 92-37-4479Nzozbcnxg encounterKatherine Gallo [facility] CareStart: 04-16-2023 End: 36-10-6797pqerkdfddsLfpbigeww Gallo Other [employer] Other Start: 80-36-5465Gsatky outpatient visit 15 minutes Katie MaldonadowFPG Palliative CareStart: 04-02-2023 End: 31-62-0118kqvequfmfqThhmbyzov Gallo Other noIT[employer] Other Start: 98-30-8067Yuovpxfik encounterKatherine Gallo [facility] CareStart: 03-11-2023 End: 05-81-9254pgyvsjrbaiKQ Yinka Lopez Work Phone: [facility] Work Phone: Start: 03-11-2023 End: 75-97-7562FQ Yinka Lopez Work Phone: [facility] Work Phone: Start: 03-06-2023 End: 78-67-0621bxjkiwwttmBcybsvilo Gallo Other [employer] Other Start: 68-49-3976Nyzturuks encounterKatherine Gallo [facility] CareStart: 02-25-2023 End: 72-47-2031iupprdrameVvsbutdid Gallo Other [employer] Other Start: 81-61-7223Xyyaqu outpatient new 45 minutes Katie McGrawFPG Palliative CareStart: 02-24-2023 End: 11-17-2540Zfozrxmvb to same day surgery centerMD Yinka Lopez Work Phone: [facility] [place] Work Phone: Start: 02-24-2023 End: 43-13-8756sqezijrbyeCQ Yinka Lopez Work Phone: [facility] Work Phone: Start: 02-24-2023 End: 40-07-9501HF Yinka Lopez Work Phone: [facility] [place] Work Phone: Start: 81-69-8003Httqvpmqys RecurringMD Yinka Lopez Work Phone: [facility] Work Phone: Start: 01-28-2023 End: 93-45-2604Qqcnuizjic and management of inpatientMD Yinka Lopez Work Phone: [facility] [place] [facility] Work Phone: Start: 39-84-1408gmzgomdqvut encounterMD Yinka Lopez Work Phone: [facility] Work Phone: Start: 01-28-2023 End: 75-57-1704GE Yinka Lopez Work Phone: [facility] [place] [facility] Work Phone: Start: 52-22-1986Gpmwndvctx RecurringMD Yinka Lopez Work Phone: [facility] Work Phone: Start: 01-09-2023 End: 93-04-5589qljdpbizhhQX Yinka Lopez Work Phone: [facility] Work Phone: Start: 01-09-2023 End: 63-41-4302WX Yinka Lopez Work Phone: [facility] Work Phone: Start: 36-07-5907hnowfqfqqgQx. Brian Alan Baxter Facility:[facility]tart: 12-29-2022 End: 04-31-5031kpawbryudsSX Yinka Lopez Work Phone: [facility] Work Phone: Start: 12-29-2022 End: 24-89-1951Pbhymhp encounter procedureMD Yinka Lopez Work Phone: [phone] Work Phone: Start: 12-29-2022 End: 80-04-4153QB Yinka Lopez Work Phone: [phone] [place] [address] Work Phone: Start: 12-26-2022 End: 70-45-2904prufiqgrejSF Brian Lopez Work Phone: [phone] Work Phone: Start: 12-26-2022 End: 35-34-8884ZS Yinka Lopez Work Phone: [phone] Work Phone: Start: 27-92-1380Fbokspetnk RecurringMD Yinka Thomaster Work Phone: [phone] Work Phone: Start: 11-26-2022 End: 66-21-0212evexcecxsaUR Brian Lopez Work Phone: [facility] Work Phone: Start: 11-26-2022 End: 44-33-8399WT Yinka Thomaster Work Phone: [phone] Work Phone: Start: 28-59-5762wlpnpfumzeGnErna Burks Leilani Berto Facility:[id number]: 11-06-2022 End: 98-91-8111vyzmmhiltsLD Yinka Lopez Work Phone: [facility] Work Phone: Start: 11-06-2022 End: 93-13-7547Yhgqnle encounter procedureMD Yinka Lopez Work Phone: [facility]Electro[facility]ostics Work Phone: Start: 11-06-2022 End: 01-08-4811YY Yinka Lopez Work Phone: [facility]ro[facility] Work Phone: Start: 33-78-0702Heocqmehhp RecurringMD Yinka Lopez Work Phone: [facility] Work Phone: Start: 10-22-2022 End: 37-58-6411ooitqfsffoZB DOCTOR MISCFacility:U9Tqmmt: 10-16-2022 End: 63-69-1995supwbkjukjPSQQBA KIEPERTFacility:H5Zoedx: 10-15-2022 End: 44-58-5532wcninqrijtSO Yinka Lopez Work Phone: [facility] Work Phone: Start: 10-15-2022 End: 13-50-4631MB Yinka Lopez Work Phone: [facility] CenterStart: 10-13-2022 End: 16-60-8311Lmlbvue encounter procedureJuan J Mendez MD Work Phone: CardiologyComment on above:Obesity, Class III, BMI >= 40 (Primary Dx); Multiple myeloma, remission status unspecified (HCC); Mild dilation of ascending aorta (HCC)Start: 09-55-2064Vqpclaokl encounterJuan J Mendez MD Work Phone: CardiologyComment on above:Received Outside Medical RecordsStart: 09-24-2022 End: 49-64-2354fmyxrvkectEL Yinka Lopez Work Phone: [facility] Work Phone: Start: 09-24-2022 End: 95-89-4500JG Yinka Lopez Work Phone: [facility] CenterStart: 09-19-2022 End: 74-42-6815jsnpwybaxmKL Yinka Lopez Work Phone: [facility] Work Phone: Start: 09-19-2022 End: 18-83-5174FN Yinka Lopez Work Phone: [facility] CenterStart: 08-20-2022 End: 05-70-4692jxsbtrdhheIB Yinka Lopez Work Phone: [facility] Work Phone: Start: 08-20-2022 End: 05-51-1417WF Yinka Lopez Work Phone: [facility] CenterStart: 08-12-2022 End: 77-55-9811kkfavicfhrXF Yinka Lopez Work Phone: [facility] Work Phone: Start: 08-12-2022 End: 55-10-3307Ubdslyw encounter procedureMD Yinka Lopez Work Phone: [facility] CampusStart: 08-12-2022 End: 09-47-7815XR Yinka Lopez Work Phone: [facility] Main CampusStart: 98-08-8289Phrortcpiy RecurringMD Yinka Lopez Work Phone: [facility]-Cancer CenterStart: 07-11-2022 End: 00-65-4573KB Yinka Lopez Work Phone: [facility] CenterStart: 07-10-2022 End: 53-28-6315Zbnvnvcgud RecurringMD Yinka Lopez Work Phone: [facility] Procedures DateProcedureProcedure DetailPerforming ClinicianStart: 49-07-1756Glonzakhm streptococcus group aDaniel Nuvia DO Work Phone: Start: 97-26-6282Dwkfq of magnesiumFabiola Marinelil MD Work Phone: Start: 80-33-8440Oexstiapnfwgh metabolic panelFabiola Marinelli MD Work Phone: Start: 70-47-7078ArpzfdcmcftwzCna Ching Marinelli MD Work Phone: Start: 99-04-0563Xhgjhv measurementYinka Lopez MD Work Phone: Start: 03-41-0593WNVRLZMGBUCXBHB A/E/G/M, QN ([facility])Fabiola Marinelli MD Work Phone: Start: 74-45-7723Zslkxmdcivoms metabolic panelFabiola Marinelli MD Work Phone: Start: 16-69-4410Bsfrqbxiczjia metabolic panelFabiola Marinelli MD Work Phone: Start: 72-00-7698Qwnuj immunofixationYinka Lopez MD Work Phone: Start: 57-47-9961Widccqaydwqdl metabolic panelFabiola Marinelli MD Work Phone: Start: 16-99-6565Ufsangj quantitative blood xcpt reagent stripInterface Unspecifiedprovider Work Phone: Start: 06-22-2025 End: 81-49-4041Ltumw 1/> lvr la prq rfAlex M Fco VISUAL [employer]CH[employer]ALES DEVELOPMENT REPRESENTATIVE Work Phone: Start: 89-53-2953HSXUR OXIMETRY, CONTINUOUSJuan J Rodriguez MD Work Phone: Start: 06-22-2025 End: 24-20-1840Kfqvk metabolic panel calcium totalДмитрий Flores MD Work Phone: Start: 02-67-5284Agjnofnw screenKatignacio Holder Comment on above:Order Comment: Transfuse now? Y Number of units to transfuse now? 1Result Comment: PERFORMED BY:[facility] [place], [place] [phone] MEDICAL DIRECTORARIEL BRUCE M.D.Start: 29-13-4873Tfuwklrkchgkq metabolic panelFabiola Marinelli MD Work Phone: Start: 29-27-3696EZPMBTELFFEGOQN A/E/G/M, QN ([facility])Fabiola Marinelli MD Work Phone: Start: 78-19-6208Cdgntzwvrevkw metabolic panelFabiola Marinelli MD Work Phone: Start: 75-02-8814MGII AND CBCFabiola Marinelli MD Work Phone: Start: 51-37-7911Mizdu immunofixationYinka Lopez MD Work Phone: Start: 86-26-3244Ujgzi cultureYinka Lopez MD Work Phone: Start: 72-14-9229Jeidw chest X-rayYinka Lopez MD Work Phone: Start: 35-30-5662Xfsiiqokzevvl metabolic panelFabiola Marinelli MD Work Phone: Start: 36-65-2095LOB of abdomen with contrastYinka Lopez MD Work Phone: Start: 78-76-6044Jcwthhiboz bloodFabiola Marinelli MD Work Phone: Start: 27-16-3318TPFDUULNYORZMWS A/G/M, QN, SERAradha Marinelli MD Work Phone: Start: 90-85-6833EQLC COVID ANTIGENDaniel Nuvia DO Work Phone: Start: 48-09-3130Opasx dip stick/tablet rgnt non-auto w/o micrscpDaniel Nuvia DO Work Phone: Start: 42-58-7602Aijkhylqojevw metabolic panelFabiola Marinelli MD Work Phone: Start: 66-13-4518ASOOVAHQUBF SLIDE REVIEW ([facility] [place])Fabiola Marinelli MD Work Phone: Start: 46-99-4092XRCFRZLUHCOOOTH A/G/M, QN, Julianna Marinelli MD Work Phone: Start: 60-63-9549QATAEEF TRACT INFECTION (HTRX)Joaquina Greer [employer] SUPERVISOR Work Phone: Start: 80-25-2324Pbgcq dip stick/tablet rgnt auto w/o Modesto Greer GLASS CUT OFF SUPERVISOR Work Phone: Start: 23-13-5350Mpnfkaoynejam metabolic panelFabiola Marinelli MD Work Phone: Start: 83-90-8575Tgnlvfclgmmcz metabolic panelFabiola Marinelli MD Work Phone: Start: 01-05-2025 End: 76-39-6159GIYOF OXIMETRY, CONTINUOUSJuan J Rodriguez MD Work Phone: Start: 01-05-2025 End: 13-21-8299Ultbuacufqewy metabolic panelДмитрий Flores MD Work Phone: Start: 01-28-9889Ljxrdojrxh bloodFabiola Marinelli MD Work Phone: Start: 74-22-8295GMNR K+L LT CHAINS, QN, Jeffery Marinelli MD Work Phone: Start: 35-05-7804EXFYMFHUALAMIUL A/G/M, QN, Julianna Marinelli MD Work Phone: Start: 12-42-5872Vmvsldttxdy timeYinka Lopez MD Work Phone: Start: 16-99-1520Dlu routine ecg w/least 12 lds w/i&r Yinka Lopez MD Work Phone: Start: 79-50-7379Pwfnnqxtip glycosylated c6tBqaztYinka Lopez MD Work Phone: Start: 02-71-4999Wlxwdttxaassn metabolic panelFabiola Marinelli MD Work Phone: Start: 89-71-8353Nymyfzas dx w/collj spec br/wa spx when prfrmdDonya Ching Woedelmiraish VISUAL MERCH[employer]SALES DEVELOPMENT REPRESENTATIVE Work Phone: Start: 41-41-8000Vpqrypzqflths metabolic panelFabiola Marinelli MD Work Phone: Start: 88-87-2218KEABZGWOZZWDYMX A/G/M, QN, SERAradha Marinelli MD Work Phone: Start: 33-34-3237Vfsxpmxegbevc metabolic panelFabiola Marinelli MD Work Phone: Start: 45-09-7530EPT of abdomen with contrastYinka Lopez MD Work Phone: Start: 52-54-7508Qvjzhkhbgcdcp metabolic panelFabiola Marinelli MD Work Phone: Start: 84-73-0218Jikuhjcfrciwb metabolic panelFabiola Marinelli MD Work Phone: Start: 47-56-6419OOBV AND CBCFabiola Marinelli MD Work Phone: Start: 82-05-3907Yakvgxwj emission tomography of whole body using fluorocholine (18-F)Yinka Lopez MD Work Phone: Start: 44-92-1099Btmuzrphslmueie of liverYinka Lopez MD Work Phone: Start: 54-83-5208Plohr 1996 panel - Serum or Plasma Lisette Perkins VISUAL MERCH[employer]SALES DEVELOPMENT REPRESENTATIVE Work Phone: start: 33-94-5339ZkevgvvfhkvQid Warchol GL[employer] CUT OFF SUPERVISOR Work Phone: Start: 05-13-0364Ewoscafdfhg pathogens DNA and RNA panel - Nasopharynx by JOHANN with non-probe detectionYinka Lopez MD Work Phone: Start: 14-62-0954FI Yinka Lopez Work Phone: Start: 93-96-9781AQPRH-19 PCR ([facility])Letty Newsome [employer] C[employer] OFF SUPERVISOR Work Phone: Start: 91-32-5994Ntl routine ecg w/least 12 lds i&r onlyCcf ProviderStart: 76-71-9595Zeggx chest X-rayMD Ez Delgado Work Phone: Start: 32-71-0852Rezjbcohyq glycosylated a1cFabiola Palumbo GL[employer] CUT OFF SUPERVISOR Work Phone: Start: 50-78-7550Dmteoc scan of lower limb veinsMD Yinka Lopez Work Phone: Start: 58-71-1830Urcgf culture for bacteria, including anaerobic screenMD Yinka Lopez Work Phone: Start: 51-22-4364Lpqskptymdxsu of transfusion reaction MD Yinka Lopez Work Phone: Start: 25-17-9202Lbcgkiurpql Panel (PCR)MD Ez Delgado Work Phone: Start: 21-05-5973QI Yinka Lopez Work Phone: Start: 94-97-5299MN of head without contrastMD Yinka Lopez Work Phone: Start: 10-73-2836YA of abdomen and pelvis without contrastMD Yinka Lopez Work Phone: Start: 77-49-3065Utfbs chest X-rayMD Yinka Lopez Work Phone: Start: 12-80-5135Wjjswjchd ID (NA Multiplex Assay)MD Ez Delgado Work Phone: Start: 27-24-3881ZHMD Yinka Lopez Work Phone: Start: 97-25-7348OPV NURSING COMMUNICATION - CYTOKINE RELEASE SYNDROMEKOEN VAN BESIENStart: 82-69-6728UFFHLMNBX CONDITIONSKOEN VAN IENStart: 27-07-7460KIX NURSING COMMUNICATION - IVIGKOEN VAN BESIENStart: 22-81-3828HJCJRD CALCULATED LENGTH INFUSION APPOINTMENT REQUEST 1KOEN AZAR CURIELIEN Start: 02-76-2321POR NURSING COMMUNICATION - CYTOKINE RELEASE SYNDROMEKOEN VAN BESIENStart: 15-32-3025FOG NURSING COMMUNICATION - HYPERSENSITIVITY MANAGEMENT, MODERATEKOEN VAN BESIENStart: 94-26-9120NQZTRINXU CONDITIONSKOEN VAN BESIEN Start: 50-08-1279OZZ NURSING COMMUNICATION - VASCULAR ACCESSKOEN VAN BESIEN Start: 30-16-1360ZGT W Auto Differential panel - BloodKOEN VAN IENStart: 32-43-9436Hzzydkpplgsqh metabolic 2000 panel - Serum or PlasmaKOEN VAN IEN Start: 22-61-2684Lbbaiouyks Soham (Bld) [Interp]KOEN VAN BESIENStart: 02-23-2024 ONCBCN CALCULATED LENGTH INFUSION APPOINTMENT REQUEST 1KOEN VAN IENStart: 59-29-1742PWIBUT CLINIC APPOINTMENT REQUESTKOEN VAN IENStart: 66-49-3623YWN NURSING COMMUNICATION - VASCULAR ACCESSKOEN VAN IENStart: 98-36-9291YRR NURSING COMMUNICATION - CYTOKINE RELEASE SYNDROMEKOEN VAN BESIENStart: 87-10-9759ZIW NURSING COMMUNICATION - HYPERSENSITIVITY MANAGEMENT, MODERATEKOEN VAN BESIENStart: 08-77-8579VXXUQTUBS CONDITIONSKOEN VAN BESIENStart: 02-16-2024 CBC W Auto Differential panel - BloodKOEN VAN BESIENStart: 02-16-2024 Comprehensive metabolic 2000 panel - Serum or PlasmaKOEN VAN BESIENStart: 01-54-1631LTBTSRMDMRPLXTY (IGG, IGA, IGM)KOEN VAN BESIENStart: 02-16-2024 KAPPA/LAMBDA FREE LIGHT CHAIN, SERUMKOEN VAN BESIENStart: 17-17-9991Dfzrbogico Soham (Bld) [Interp]KOEN VAN BESIENStart: 40-31-3083FFXGHGE ELECTROPHORESIS, SERUM KOEN VAN BESIENStart: 23-99-7438GUPCQFA, TOTAL SPEKOEN VAN BESIENStart: 01-69-1226XMWWVU CALCULATED LENGTH INFUSION APPOINTMENT REQUEST 1KOEArleen LINDQUIST Start: 76-33-0048Mizadw scan of lower limb veinsMD Yinka Lopez Work Phone: Start: 68-07-5428MQTS US LOWER EXTREMITY VENOUS DUPLEX RIGHTKOEN VAN BESIENStart: 48-84-9411RBN NURSING COMMUNICATION - CYTOKINE RELEASE SYNDROMEKOEN VAN BESIENStart: 94-63-5537KAS NURSING COMMUNICATION - HYPERSENSITIVITY MANAGEMENT, MODERATEKOEN VAN BESIENStart: 83-23-8288WDKFX OXIMETRY, CONTINUOUSKOEN VAN BESIENStart: 80-31-7113CWFGPRMIL CONDITIONSKOEN VAN BESIENStart: 97-26-3450IQU NURSING COMMUNICATION - IVIGKOEN VAN BESIENStart: 48-85-8157MME W Auto Differential panel - BloodKOEN VAN BESIENStart: 02-09-2024 ONC NURSING COMMUNICATION - VASCULAR ACCESSKOEN VAN BESIENStart: 02-09-2024 ONCBCN INFUSION APPOINTMENT REQUESTKOEN VAN QUINTINtart: 27-26-3523ZGNCBR CALCULATED LENGTH INFUSION APPOINTMENT REQUEST 1KOEN VAN VEENAIENStart: 01-26-2024 ONCBCN CLINIC APPOINTMENT REQUESTKOEN VAN VEENAIENStart: 35-77-8924LV of paranasal sinus without contrastMD Yinka Lopez Work Phone: Start: 31-08-8419GC of thorax with contrastMD Yinka Lopez Work Phone: Start: 54-85-5143Vkpqmry microbial cultureYinka Lopez MD Work Phone: Start: 59-51-8982Ympe stain microscopyYinka Lopez MD Work Phone: Start: 48-54-5014Txyoldthghblx of transfusion reaction MD Yinka Lopez Work Phone: Start: 17-50-4216Gzufc chest X-rayMD Yinka Lopez Work Phone: Start: 97-33-0800FIQ NURSING COMMUNICATION - CYTOKINE RELEASE SYNDROMEKOEN VAN BESIENStart: 42-73-5379ZND NURSING COMMUNICATION - HYPERSENSITIVITY MANAGEMENT, MODERATEKOEN VAN BESIENStart: 07-18-2052HEMLKJTGT CONDITIONSKOEN VAN BESIENStart: 41-81-1161WIUKIC CALCULATED LENGTH INFUSION APPOINTMENT REQUEST 1KOEN VAN BESIENStart: 78-92-1306TLM NURSING COMMUNICATION - VASCULAR ACCESSKOEN VAN BESIENStart: 01-69-1465YXY NURSING COMMUNICATION - CYTOKINE RELEASE SYNDROMEKOEN VAN BESIENStart: 97-43-6896QOA NURSING COMMUNICATION - HYPERSENSITIVITY MANAGEMENT, MODERATEKOEN VAN BESIENStart: 05-46-0882PFDYXWYPL CONDITIONSKOEN VAN BESIENStart: 59-75-0667XEY NURSING COMMUNICATION - IVIGKOEN VAN BESIENStart: 99-91-0109ITU W Auto Differential panel - BloodKOEN VAN IENStart: 48-79-8621CSJDNP INFUSION APPOINTMENT REQUEST KOEN VAN BESIENStart: 91-09-2697IOAFRI CALCULATED LENGTH INFUSION APPOINTMENT REQUEST 1KOEN VAN BESIENStart: 78-38-6029Kzyzp chest X-rayMD Yinka Lopez Work Phone: Start: 29-70-6780JNQ W Auto Differential panel - Blood KOEN VAN BESIENStart: 06-58-5864Oqqaccwcexpcf metabolic 2000 panel - Serum or PlasmaKOEN VAN IENStart: 68-88-1531NDWDNJGKPXJEMBW (IGG, IGA, IGM)KOEN VAN BESIENStart: 86-49-4005WABLM/LAMBDA FREE LIGHT CHAIN, SERUMKOEN VAN BESIENStart: 1957KNTSXPJ ELECTROPHORESIS, SERUMKOEN VAN BESIENStart: 12-29-2023 PROTEIN, TOTAL SPEKOEN VAN BESIENStart: 58-99-3690WGH NURSING COMMUNICATION - VASCULAR ACCESSKOEN VAN BESIENStart: 46-75-4333PMGCDF CALCULATED LENGTH INFUSION APPOINTMENT REQUEST 1KOEN VAN BESIENStart: 08-83-5640KRUJWT CLINIC APPOINTMENT REQUESTKOEN VAN BESIENStart: 10-02-8923TE angiography of thoraxMD Yinka Thomaster Work Phone: Start: 02-68-9916Vbvde culture for bacteria, including anaerobic screenMD Yinka Lopez Work Phone: Start: 84-40-0521VZRQ-CoV-2, Influenza & RSV (PCR) Yinka Lopez Work Phone: Start: 26-60-1917Sbhay chest X-rayMD Iynka Lopez Work Phone: Start: 39-90-2110XYE NURSING COMMUNICATION - CYTOKINE RELEASE SYNDROMEKOEN VAN BESIENStart: 26-98-0236UYKFACDMH CONDITIONSKOEN VAN BESIENStart: 48-72-3284Lejczrgkknpma metabolic 1999 panel - Serum or PlasmaKOEN VAN [employer] Materials CorporationIENStart: 23-28-3106FNXBGE CALCULATED LENGTH INFUSION APPOINTMENT REQUEST 1KOEN VAN BESIENStart: 45-19-6927CAS NURSING COMMUNICATION - CYTOKINE RELEASE SYNDROMEKOEN VAN BESIENStart: 40-22-7238MJY NURSING COMMUNICATION - HYPERSENSITIVITY MANAGEMENT, MODERATEKOEN VAN BESIENStart: 61-81-5998DSQMOONKY CONDITIONSKOEN VAN BESIENStart: 99-90-0813YDA NURSING COMMUNICATION - IVIGKOEN VAN BESIENStart: 81-42-0855NUE NURSING COMMUNICATION - VASCULAR ACCESSKOEN VAN BESIENStart: 65-25-2686Cthwzoosblfzk metabolic 1999 panel - Serum or PlasmaKOEN VAN BESIENStart: 25-55-5022Wrdeklpjjv Soham (Bld) [Interp]KOEN VAN BESIENStart: 29-98-0727RSQ W Auto Differential panel - BloodKOEN VAN BESIENStart: 11-25-2023 Glucose quantitative blood xcpt reagent stripTheresa Romano MD PhD Work Phone: start: 51-18-8448S-reactive proteinRachel Ching Poyle PA-C Work Phone: start: 38-78-7448Collf function panelRachel Ching Poyle PA-C Work Phone: start: 78-87-7044Lqhrqtv quantitative blood xcpt reagent Keshia Romano MD PhD Work Phone: start: 68-48-8322Yhgujpc quantitative blood xcpt reagent stripTheresa Romano MD PhD Work Phone: [phone]: 69-76-1960Bhfinyt quantitative blood xcpt reagent stripTheresa Romano MD PhD Work Phone: [phone]: 55-15-4124Lrsghhx quantitative blood xcpt reagent stripTheresa Romano MD PhD Work Phone: [phone]: 47-81-1790Wxsqg of phosphorus inorganicRachel M Poyle PA-C Work Phone: Start: 11-47-9546L-reactive proteinRachel M Poyle PA-C Work Phone: Start: 65-10-9219Hjkyyds quantitative blood xcpt reagent stripTheresa Romano MD PhD Work Phone: Start: 57-05-5279Tmmjiat quantitative blood xcpt reagent stripTheresa Romano MD PhD Work Phone: Start: 92-15-2057Taouovc quantitative blood xcpt reagent stripTheresa Romano MD PhD Work Phone: Start: 28-33-2042N-reactive proteinRachel M Poyle PA-C Work Phone: Start: 65-01-6985XJC shape Nom (Bld)Garima M Poyle PA-C Work Phone: [phone]: 18-78-6200Nwdwz function panelRachel M Poyle PA-C Work Phone: [phone]: 13-41-5601Qgszctx quantitative blood xcpt reagent stripTheresa Romano MD PhD Work Phone: [phone]: 49-33-3494Ohxcxcb quantitative blood xcpt reagent stripTheresa Romano MD PhD Work Phone: Start: 85-16-0218Punaygj quantitative blood xcpt reagent stripTheresa Romano MD PhD Work Phone: Start: 07-89-1676Uwxvmdg quantitative blood xcpt reagent stripTheresa Romano MD PhD Work Phone: Start: 91-10-5910L-reactive proteinRachel Ching Poyle PA-C Work Phone: [phone]: 12-87-4379Dqaog function panelRachel Ching Poyle PA-C Work Phone: Start: 31-33-1458Wekgzqp quantitative blood xcpt reagent stripTheresa Romano MD PhD Work Phone: Start: 15-83-8706Ynhukmg quantitative blood xcpt reagent stripTheresa Romano MD PhD Work Phone: Start: 59-22-7266Tmsvj typing serologic rh (d)Garima Flower Poyle PA-C Work Phone: [phone]: 14-96-8321Hvwpobl quantitative blood xcpt reagent stripTheresa Romano MD PhD Work Phone: Start: 51-97-1679Kqhojzq quantitative blood xcpt reagent stripTheresa Romano MD PhD Work Phone: Start: 35-00-4404E-reactive proteinRachel Ching Poyle PA-C Work Phone: [phone]: 17-96-5358MSD shape Nom (Bld)Garima Flower Poyle PA-C Work Phone: Start: 74-40-7050Jqwvm function panelRachel Ching Poyle PA-C Work Phone: Start: 71-54-9497Tzgmiio quantitative blood xcpt reagent stripTheresa Romano MD PhD Work Phone: Start: 92-35-4856Uapzijj quantitative blood xcpt reagent stripTheresa Romano MD PhD Work Phone: Start: 87-55-3814QTVBU OSTOMY NURSING CONSULTLaura Acacia Borrego VISUAL MERCHANDISER-SALES DEVELOPMENT REPRESENTATIVE Work Phone: Start: 44-86-5085C-reactive proteinRachel Ching Poyle PA-C Work Phone: Start: 01-79-1683Hkrkr function panelRachel Ching Poyle PA-C Work Phone: Start: 21-06-6582Xhwdwvj quantitative blood xcpt reagent stripTheresa Romano MD PhD Work Phone: Start: 74-97-8710Kgxtwtm quantitative blood xcpt reagent stripTheresa Romano MD PhD Work Phone: Start: 11-19-2023 End: 12-98-7605Eypxi of ferritinRachel M Poyle PA-C Work Phone: Start: 50-28-2467B-reactive proteinRachel Ching Poyle PA-C Work Phone: Start: 94-88-9570Gkmcmqz quantitative blood xcpt reagent stripTheresa Romano MD PhD Work Phone: Start: 08-87-5246Jxguc metabolic panel calcium total Garima Flower Poyle PA-C Work Phone: Start: 22-53-6192QVK shape Nom (Bld)Garima Flower Poyle PA-C Work Phone: [phone]: 99-89-1063Ntbwefg quantitative blood xcpt reagent stripTheresa Romano MD PhD Work Phone: Start: 60-16-8445Fmvnqxz quantitative blood xcpt reagent stripTheresa Romano MD PhD Work Phone: Start: 84-47-5353Mwezm typing serologic rh (d)Garima Flower Poyle PA-C Work Phone: Start: 99-66-9781Kxwhuvcrscoey metabolic panelRachel Ching Poyle PA-C Work Phone: [phone]: 70-80-8976WEGX Antigen (LFIA)MD Yinka Lopez Work Phone: Start: 77-04-7168Kbonhqxrspg Panel (PCR) Yinka Lopez Work Phone: Start: 39-72-6682XC Yinka Lopez Work Phone: Start: 65-93-9639EZ of head without contrastMD Yinka Lopez Work Phone: Start: 07-94-6970Cajll chest X-rayMD Yinka Lopez Work Phone: Start: 93-88-1026Zrhetxs quantitative blood xcpt reagent stripSarath Gamez MD Work Phone: [phone]: 43-19-8813Jeqhgkz quantitative blood xcpt reagent stripSarath Gamez MD Work Phone: [phone]: 98-67-2715R-reactive proteinAbbey L Hernandez PA-C Work Phone: [phone]: 15-48-6790Tkpcyzzgqwhpl metabolic panelEvjesus Janoch PA-C Work Phone: [phone]: 47-45-8553XHU shape Nom (Bld)Dariel Janoch PA-C Work Phone: [phone]: 91-15-3880Fkpemwf quantitative blood xcpt reagent stripBekrystle Gamez MD Work Phone: [phone]: 48-15-3323A-reactive proteinAbbey L Hernandez PA-C Work Phone: [phone]: 11-43-5877Rzlhwqltsjgab metabolic panelEvjesus Janoch PA-C Work Phone: [phone]: 30-15-1818Iqkyjad quantitative blood xcpt reagent stripSarath Gamez MD Work Phone: [phone]: 72-72-3808Yfkbebd quantitative blood xcpt reagent stripSarath Gamez MD Work Phone: [phone]: 68-96-5668Dwgjh dip stick/tablet rgnt auto w/o microscopyXhuliana Fafaj PA-C Work Phone: [phone]: 78-29-1735Y-reactive proteinAbbey L Hernandez PA-C Work Phone: [phone]: 96-26-3872Dhtjwyrbwzlmq metabolic panelEvjesus Janoch PA-C Work Phone: [phone]: 11-81-9843BIA shape Nom (Bld)Darieljesus Odenoch PA-C Work Phone: [phone]: 83-32-6403Ldxejxk bacterial blood aerobic w/id isolatesXhuliana Fafaj PA-C Work Phone: [phone]: 72-83-9834Kaqgmwd quantitative blood xcpt reagent stripSarath Gamez MD Work Phone: [phone]: 89-76-9320Jaodjol quantitative blood xcpt reagent stripSarath Gamez MD Work Phone: [phone]: 58-71-1523U-reactive proteinAbbey L Hernandez PA-C Work Phone: [phone]: 44-31-2412Gphpjzcfmwmmx metabolic panelEvjesus Odenuofl [facility] PA-C Work Phone: [phone]: 73-62-6821Pwaafep quantitative blood xcpt reagent stripSarath Gamez MD Work Phone: [phone]: 72-95-7944Uwwjizh quantitative blood xcpt reagent stripBekrystle Gamez MD Work Phone: [phone]: 33-82-3310Johrthx quantitative blood xcpt reagent stripSarath Gamez MD Work Phone: [phone]: 07-58-5297K-reactive proteinAbbey L Hernandez PA-C Work Phone: [phone]: 82-30-7553Dqvssdettglbu metabolic panelEvjesus Odenuofl [facility] PA-C Work Phone: [phone]: 68-43-1410Rxexngq quantitative blood xcpt reagent stripSarath Gamez MD Work Phone: [phone]: 19-39-3345Gbocyzh quantitative blood xcpt reagent Liana Gamez MD Work Phone: [phone]: 43-61-2948Ffevrdy quantitative blood xcpt reagent stripSarath Gamez MD Work Phone: [phone]: 89-77-6789Jfxwf dip stick/tablet rgnt auto w/o microscopyEvan [facility] PA-C Work Phone: [phone]: 18-25-4681Ahzwkyqyhf exam chest single viewEvan [facility] PA-C Work Phone: [phone]: 93-33-9187T-reactive proteinAbrukhsana Ng PA-C Work Phone: [phone]: 20-62-0696Ntpaxsrydryly metabolic panelRiverside Methodist Hospital PA-C Work Phone: [phone]: 94-82-2314Nszvhtd bacterial blood aerobic w/id isolatesEvan [facility] PA-C Work Phone: [phone]: 30-10-8431Gvrzhon quantitative blood xcpt reagent Liana Gamez MD Work Phone: [phone]: 56-29-3458Lyeofbz quantitative blood xcpt reagent Liana Gamez MD Work Phone: [phone]: 23-00-7171Ydkzefq quantitative blood xcpt reagent stripSarath Gamez MD Work Phone: [phone]: 54-67-9806Gombfkl quantitative blood xcpt reagent stripSarath Gamez MD Work Phone: [phone]: 56-20-7470M-reactive proteinAbrukhsana Ng PA-C Work Phone: [phone]: 08-07-2023 End: 26-16-4933Ayhcj function panelCarmen D Celio VISUAL MERCHANDISER-SALES DEVELOPMENT REPRESENTATIVE Work Phone: [phone]: 32-52-1166Ceajesi quantitative blood xcpt reagent stripBenharjinder Gamez MD Work Phone: [phone]: 33-56-0446Xwpoqel quantitative blood xcpt reagent stripBekrystle Gamez MD Work Phone: [phone]: 99-65-4642Lqrwwie quantitative blood xcpt reagent stripBekrystle Gamez MD Work Phone: [phone]: 25-93-1777S-reactive proteinAbbey L Hernandez PA-C Work Phone: [phone]: 91-31-2418Pjmrv function panelCarmen D Celio VISUAL MERCHANDISER-SALES DEVELOPMENT REPRESENTATIVE Work Phone: [phone]: 33-12-0763Gpsnbvc quantitative blood xcpt reagent stripSarath Gamez MD Work Phone: [phone]: 49-64-5947Lnpkhdp quantitative blood xcpt reagent stripBekrystle Gamez MD Work Phone: Start: 12-49-0561Cmjqrip quantitative blood xcpt reagent stripSarath Gamez MD Work Phone: [phone]: 61-95-3889Vqogvbv quantitative blood xcpt reagent stripBekrystle Gamez MD Work Phone: [phone]: 25-48-7900OHT shape Nom (Bld)Antonella D Celio VISUAL MERCHANDISER-SALES DEVELOPMENT REPRESENTATIVE Work Phone: [phone]: 59-24-1812Cfsfc function panelCarmen D Celio VISUAL MERCHANDISER-SALES DEVELOPMENT REPRESENTATIVE Work Phone: [phone]: 48-12-2792Pmhalwr quantitative blood xcpt reagent stripBekrystle Gamez MD Work Phone: Start: 72-14-1081Eoinhhr quantitative blood xcpt reagent stripBekrystle Gamez MD Work Phone: [phone]: 25-41-2698Iwgjwou quantitative blood xcpt reagent stripBekrystle Gamez MD Work Phone: start: 89-34-8752Nwfahujpxh glycosylated o6hYezcxcuwWythe County Community HospitalSmartesting Work Phone: [phone]: 75-98-0571Uncbo typing serologic rh (d)Boyaa InteractiveWythe County Community HospitalSmartesting Work Phone: Start: 42-05-5414Khaevngalpbuw metabolic panelXSentara [facility] Hospital [employer] Work Phone: Start: 52-18-0339Xyv prsmptv pthgnc organism scrn w/colony estimjXSentara [facility] Hospital [employer] Work Phone: Start: 62-87-6759Ocve-cov-2 detection by dna/rna [facility] [employer] Work Phone: [phone]: 54-65-0673Kvtrxgwk tomography of abdomen and pelvis with contrastNJ Yinka Lopez Work Phone: Start: 74-97-1465P-ray of lumbar spine, four or more viewsMD Yinka Lopez Work Phone: Start: 57-70-4095Ddjrq cultureMD Yinka Lopez Work Phone: Start: 52-26-9791Rewgzhoq emission tomography of whole body using fluorocholine (18-F)MD Yinka Thomaster Work Phone: Start: 95-44-8619Fdzt marrow samplingMD Yinka Thomaster Work Phone: Start: 95-89-7143Pokpt X-ray of right femurMD Yinka Lopez Work Phone: start: 41-65-3113Evkua X-ray of right hipMD Yinka Cleverbug Work Phone: start: 98-94-5929Vlbiztoyp ID (NA Multiplex Assay)MD Yinka Lopez Work Phone: start: 87-27-6414Gatzu culture for bacteria, including anaerobic screenMD Yinka Lopez Work Phone: Start: 55-03-9575Oapmm cultureMD Yinka Lopez Work Phone: Start: 84-58-7229XZ Yinka Lopez Work Phone: Start: 61-94-9323Ohlq energy X-ray absorptiometryMD Yinka Lopez Work Phone: Start: 47-18-4156KP of paranasal sinus without contrastMD Yinka Lopez Work Phone: Start: 69-40-4020AnwxmvcqgsqEfv ClinicStart: 03-11-9471Vizxj chest X-rayNJ Yinka Lopez Work Phone: Start: 71-13-2647Rurafafx emission tomography of whole body using fluorocholine (18-F) Yinkashefali Lopez Work Phone: Start: 04-33-0417Bmhkq chest X-rayMD Yinka Lopez Work Phone: Start: 86-99-1018Ewspykezmc examination, osseous survey, completeNJ Yinka Lopez Work Phone: Start: 58-04-6885KNT of right femur with contrastMD Yinka Lopez Work Phone: Start: 20-29-0711Swuba X-ray of right femurMD Yinka Lopez Work Phone: Start: 06-92-4501Nkawt X-ray of right hipMD Yinka Lopez Work Phone: Start: 36-02-4295M-ray of right kneeMD Yinka Lopez Work Phone: Start: 33-11-8380DSU of cervical spine with contrastMD Yinka Lopez Work Phone: start: 82-67-8416Tufsjfaq emission tomography of whole body using fluorocholine (18-F)MD Yinka Lopez Work Phone: Start: 41-33-2622KER of thoracic spine with contrastMD Yinka Lopez Work Phone: Start: 49-34-2048Rtuuvspv emission tomography of whole body using fluorocholine (18-F) Yinka Berto Work Phone: Start: 97-44-9505Kujjp X-ray of left handNJ Yinka Lopez Work Phone: Start: 14-30-4340ZPD of cervical spine without contrastMD Yinka Lopez Work Phone: Start: 65-07-3132CH pre/post mri xrayMD Yinka Lopez Work Phone: Start: 89-76-6512RB Yinka Lopez Work Phone: Start: 22-22-4926Ccoiq X-ray of bilateral femursMD Yinka Thomaster Work Phone: Start: 62-36-9501Rscnuu X-rayMD Yinka Lopez Work Phone: Start: 87-08-9199Xjsjloks emission tomography with computed tomographyNJ Yinka Lopez Work Phone: Start: 38-39-0209Ylojzuywuy examination, osseous survey, completeNJ Yinka Lopez Work Phone: Start: 82-72-0963QaodskhkodhMatb Van Besien MD PhD Work Phone: start: 75-26-2702Kcxcyrcgzb examination, osseous survey, completeNJ Yinka Lopez Work Phone: Start: 93-27-0045Axjjfeht emission tomography with computed tomographyNJ Yinka Lopez Work Phone: Start: 86-87-7006QsrjbnqeiooRttcucs WATERS Start: 50-97-2029BjoxxfjzwxcDlgr Angel MD Work Phone: Abdominal hysterectomyPatrick WAKU WAKU ? appendectomyPatrick WAKU WAKU ? arthroscopic knee operationPabaptist health paducahk WAKU WAKU ? Comment on above:Lt.Arthroscopy of kneePatrick VALENZUELA Comment on above:Rt.CholecystectomyPatrick VALENZUELA CounselingKatherine Gallo Other Decompression of median nervePatrick VALENZUELA HemorrhoidectomyPatrick VALENZUELA History of hernia repairPatrick VALENZUELA History of operative procedure on elbowPatrick VALENZUELA Ligation of fallopian tubePatrick VALENZUELA Procedure on wristPatrick VALENZUELA Repair of single tendonPatrick VALENZUELA Plan of Treatment DateCare ActivityDetailAuthorStart: 40-36-2967Tdazvubtq for malignant neoplasm of colonNOMS HealthcareStart: 23-33-5852Vcocsgjp screeningDiabetes: Retinopathy ScreeningCACHE VALLEY [facility] HealthcareStart: 87-21-2838Fhgjdcnog for malignant neoplasm of breastMammogramNOMS HealthcareStart: 49-87-8894Rgeidkga screeningDiabetes: Retinopathy ScreeningCACHE VALLEY [facility]ITAL HealthcareStart: 04-30-2026Medicare Annual Wellness (AWV)Medicare Annual Wellness (AWV)[facility] HealthcareStart: 31-23-1212Ntlqcnpakp A1c measurementDiabetes: Hemoglobin C8KNQFT HealthcareStart: 2025 End: 29-16-6462Jzafzsn encounter dhoetyznu84/10/2025 10:00 AM EST Office Visit [facility] [address] [place] [address] Emely Pedersen DO [address] [place] [address] [place] [address] [facility] 340Start: 78-36-7732Fnbzc panelLipid PanelKettering Health PrebleStart: 68-05-3336Rpjcv screening for proteinDiabetes: Urine Protein ScreeningKettering Health PrebleStart: 08-22-2025 End: 04-74-5451QGWLVRKPH (HTRX)PNEUMONIA (HTRX) Lab Routine COPD with acute exacerbation (HCC) Pharyngitis, unspecified etiology Expected: 08/22/2025 (Approximate), Expires: 08/22/2026[facility] Work Phone: Comment on above:Expected: 08/22/2025 (Approximate), Expires: 08/22/2026Start: 08-17-2025 End: 13-90-6506Fzbnjyb encounter procedureCardiologyComment on above:echoReturn in about 9 months (around 04/17/2025).Start: 54-75-4545Lzgigulvponej metabolic 2000 panel - Serum or PlasmaRiverview Health Institutetart: 08-16-2025 End: 49-44-4358YazybirirRiverview Health Institutetart: 02-98-0338XsbjvxqilRiverview Health Institutetart: 29-07-9631MxckmeitkRiverview Health Institutetart: 08-03-2025 End: 98-20-6313AbxnyvheeRiverview Health Institutetart: 43-86-3559XcmdbblhaRiverview Health Institutetart: 60-00-4979NrmhlhhmfRiverview Health Institutetart: 91-14-5963VyjzxssqyRiverview Health Institutetart: 07-19-2025 End: 90-09-0499UrjnvlkvqRiverview Health Institutetart: 07-14-2025 End: 70-92-8159UaktveptsWyandot Memorial Hospital CenterStart: 19-22-0307QoxjyzhozWyandot Memorial Hospital CenterStart: 39-99-5875XebdvmkckWyandot Memorial Hospital CenterStart: 80-68-6535PtkcjybcdWyandot Memorial Hospital CenterStart: 11-83-3577Vukhnuljt vaccinationOhioHealth Dublin Methodist Hospitaltart: 06-26-2025 End: 56-23-2572Afhzkgv encounter procedureSJFK JOHNSON [facility] Start: 67-42-0447Uqgktcmdcesu Vaccine: 65+ Years (3 of 3 - PPSV23 or PCV20) Pneumococcal Vaccine: 65+ Years (3 of 3 - PPSV23 or PCV20)[facility] HealthcareComment on above:Postponed from 10/05/2022 (Patient Refused)Start: 06-20-2025 Pneumococcal Vaccine: 65+ Years (3 of 3 - PPSV23, PCV20 or PCV21)Pneumococcal Vaccine: 65+ Years (3 of 3 - PPSV23, PCV20 or PCV21)[facility] HealthcareComment on above:Postponed from 10/05/2022 (Patient Refused)Start: 46-35-4353Tvkddpeohm A1c measurementDiabetes: Hemoglobin L0YLWZPWright Memorial HospitalStart: 06-15-2025 End: 18-72-4078JxmvruxsgRiverview Health Institutetart: 06-15-2025 End: 74-14-3440Aerlffz encounter procedureNODuke [facility] Hospital [address] Start: 06-14-2025 End: 15-60-5842IsmicabsjRiverview Health Institutetart: 06-14-2025 Lqxiy-1-kckpexhqbmf.tumor marker [Mass/volume] in Serum or PlasmaRiverview Health Institutetart: 06-07-2025 End: 65-34-0535QiwbaapfeRiverview Health Institutetart: 70-02-8320Ictyh culture [facility] Institutetart: 05-30-2025 End: 94-72-5972EoedcuifwRiverview Health Institutetart: 43-61-3321Fjqppfo referralOhiohealth Doctors Hospital Work Phone: Start: 38-98-9035EzavncobtSalem City Hospital Start: 05-26-2025 End: 76-27-2862Fqdmlrh encounter procedureNOPR SEP FMStart: 86-37-5860Yncspz scan of lower limb veinsRiverview Health Institutetart: 05-18-2025 [facility]utetart: 05-15-2025 End: 11-16-3605Chbekdy encounter xqtfoghwg47/14/2025 10:00 AM EDT Consult [facility] [address] [place] [address] Emely Pedersen DO [address] [place] [address] ArrivedDOUGLAS COUNTY MEMORIAL HOSPITALComment on above:ArrivedStart: 96-28-9286Bzgzrbbvb vaccinationInfluenza Vaccine (#1)[facility] HealthcareComment on above:Postponed from 07/03/2024 (Patient Refused)Start: 04-24-2025 End: 05-51-6646Ngsrzcx encounter procedureCardiologyComment on above:Return in about 9 months (around 04/17/2025).Start: 80-77-2911Hjynooi referralCleveland Clinic [facility]ucl[facility] Work Phone: Start: 04-20-2025 End: 53-00-3870OjozsycwvRiverview Health Institutetart: 04-20-2025 End: 77-13-1140KmfkwprqwRiverview Health Institutetart: 42-86-6694MudyshyukRiverview Health Institutetart: 58-33-8861NpdpnccjxRiverview Health Institutetart: 04-10-2025 End: 07-91-4634Xqytnvf encounter fgsvaubie19/09/2025 10:20 AM EDT Office Visit [facility] [address] [place] [address] Emely Pedersen, DO [address] [place] [address] Contusion of rib on left side, subsequent encounter (Primary Dx)[facility] FMComment on above:Contusion of rib on left side, subsequent encounter (Primary Dx)Start: 03-29-2025 End: 98-32-1236VNAYRUX TRACT INFECTION (HTRX)URINARY TRACT INFECTION (HTRX) Lab Routine Acute cystitis without hematuria Expected: 03/29/2025 (Approximate), Expires: 03/29/2026[facility] Work Phone: Comment on above:Expected: 03/29/2025 (Approximate), Expires: 03/29/2026Start: 03-28-2025 End: 34-45-3515CovsydzgqRiverview Health Institutetart: 06-65-6876KwtrvpyviRiverview Health Institutetart: 01-15-3032ZkfhafgcfRiverview Health Institutetart: 32-69-8516VhdxqtgxrRiverview Health Institutetart: 42-09-2090XydxykbvzRiverview Health Institutetart: 92-13-2307NprwoyhbrRiverview Health Institutetart: 03-01-2025 End: 76-79-8950Uklmbuh encounter lmsfxhdal10/30/2025 1:40 PM EDT Office Visit [facility] [address] [place] [address] Emely Pedersen DO [address] [place] [address] Medicare annual wellness visit, subsequent (Primary Dx)[facility] SE[facility] FMComment on above:Medicare annual wellness visit, subsequent (Primary Dx) Start: 58-01-3536KhyhxionvRiverview Health Institutetart: 02-15-2025 End: 27-70-1244YcjwtagnsRiverview Health Institutetart: 58-80-3694ZxxnpdiuoRiverview Health Institutetart: 02-01-2025 End: 22-08-2244Gdordny encounter bxcufxbfa01/02/2025 10:00 AM EDT Office Visit [facility] [address] [place] [address] Emely Pedersen DO [address] [place] [address] [facility] FMStart: 61-15-6630JqgwwownoSalem City Hospital Start: 01-18-2025 End: 40-18-6971RuewhtlytWyandot Memorial Hospital CenterStart: 18-36-9069Bbochxgze for malignant neoplasm of breastMammogramNOPR HealthcareStart: 44-62-1399JztszqfteWyandot Memorial Hospital CenterStart: 37-13-2202KnqoewizoWyandot Memorial Hospital CenterStart: 07-04-9904NgsjddewtWyandot Memorial Hospital CenterStart: 44-74-4001LyipykuroWyandot Memorial Hospital CenterStart: 48-60-5808Yhomgeqsy for osteoporosisBone Density Scan [facility] PrebleStart: 58-69-1674KgcalcjteWyandot Memorial Hospital CenterStart: 04-00-0856NkcbzpnlkRiverview Health Institutetart: 12-29-2024 [facility]utetart: 12-28-2024 End: 44-74-6896EywzdzckrRiverview Health Institutetart: 12-26-2024 End: 81-38-0890Iucbe type and Indirect antibody screen panel - BloodType and screen Lab Routine Liver lesion Expected: 12/26/2024 (Approximate), Expires: 12/20/2025[facility] Work Phone: Comment on above:Expected: 12/26/2024 (Approximate), Expires: 12/20/2025Start: 12-26-2024 End: 95-79-4120Nhoqtbasvzw time (PT) in Blood by Coagulation assayProtime-INR Lab Routine Liver lesion Expected: 12/26/2024 (Approximate), Expires: 12/20/2025 [facility] HealthcareComment on above:Expected: 12/26/2024 (Approximate), Expires: 12/20/2025Start: 12-26-2024 End: 52-70-6460Vjtseuzzaqk [Units/volume] in Serum or PlasmaTSH Lab Routine Liver lesion Expected: 12/26/2024 (Approximate), Expires: 12/20/2025[facility] HealthcareComment on above:Expected: 12/26/2024 (Approximate), Expires: 12/20/2025Start: 86-15-9106Kxzuoinfji A1c measurementOhioHealth Dublin Methodist Hospitaltart: 12-20-2024 End: 36-56-9081Lhrgzue encounter ehnuumtwv91/18/2025 2:00 PM EST Consult [facility] [address] [place] [address] Yinka Lopez MD [address] [place] [address] [facility]FL[facility] FMComment on above:ArrivedStart: 12-12-2024 End: 26-53-4043Uqocwzb encounter ewkoqxrgx94/10/2025 1:20 PM EST Office Visit [facility] [address] [place] [address] Fabiola Palumbo, [employer] SUPERVISOR [address] [place] [address] [facility]FI[facility] FMStart: 25-90-1449JgdsasqckRiverview Health Institutetart: 12-07-2024 End: 33-20-5292NlrazavidRiverview Health Institutetart: 12-01-2024 End: 87-84-0182Mhgtshp encounter pgmheykbx34/30/2025 3:00 PM EST Office Visit [facility] [address] [place] [address] Fabiola Palumbo, GL[employer] C[employer] OFF SUPERVISOR [address] [place] [address] [facility]OMFILLMORE [facility] FMStart: 01-29-2025Medicare Annual Wellness (AWV)Medicare Annual Wellness (AWV)NOMColumbia Regional HospitalStart: 61-48-5771Rwyvs screening for protein Diabetes: Urine Protein ScreeningUnCentervilleStart: 11-29-2024 End: 86-53-6663Cwwruob encounter skipdrlhu28/28/2025 3:00 PM EST Appointment [facility] [address] [place] [address] HWSummit Medical Center - Caspertart: 27-55-8635Axogcyn referralOhiohealth Doctors Hospital Work Phone: Start: 11-16-2024 End: 50-51-6899DcjragkutRiverview Health Institutetart: 77-85-4397Iqsbnjt Directive DiscussionAdvance Directive DiscussionOhioHealth Dublin Methodist Hospitaltart: 10-27-2024 End: 62-15-3130MmxmxuoqaRiverview Health Institutetart: 87-25-7296QghsxcckxRiverview Health Institutetart: 30-58-5778GmmqukjkmRiverview Health Institutetart: 41-37-9077MmqyvtsksRiverview Health Institutetart: 10-18-2024 End: 70-58-7796RVX W Auto Differential panel - BloodKettering Health Preble Work Phone: Comment on above:Expected: 10/18/2024, Expires: 10/18/2025Start: 10-18-2024 End: 82-44-0910rddgusinld31/17/2024 11:00 AM EST Infusion [facility] [address] [place] [address] [place] [facility] CenterStart: 10-04-2024 End: 57-18-2662Mqofxpd encounter bjaauekhr78/03/2024 10:40 AM EST Office Visit [facility] [address] [place] [address] Fabiola Palumbo, GL[employer] C[employer] SUPERVISOR [address] [place] [address] [facility]ITALtart: 09-27-2024 End: 72-05-7658BedthjslsRiverview Health Institutetart: 09-27-2024 End: 39-88-7531KOI W Auto Differential panel - [facility] Work Phone: Comment on above:Expected: 09/27/2024, Expires: 09/27/2025Start: 09-27-2024 End: 40-58-6575Wreivxnfruyfw metabolic 2000 panel - Serum or PlasmaComprehensive metabolic panel Lab Routine Multiple myeloma not having achieved remission (Multi) Expected: 09/27/2024, Expires: 09/27/2025[facility] Work Phone: Comment on above:Expected: 09/27/2024, Expires: 09/27/2025Start: 09-27-2024 End: 62-20-6200nxeswgpivw37/26/2024 9:45 AM EST Infusion [facility] [address] [place], [place] [facility]24 End: 51-13-5159Fvmsybr encounter yirssnjfr08/26/2024 8:50 AM EST Office Visit [facility] [address] [place] [address] Supa [place]quist [place] PhD [address] [place] [address] [facility]: [facility] [id number]-1-fetoprotein.tumor marker [Mass/volume] in Serum or PlasmaRiverview Health Institutetart: 09-06-2024 End: 66-45-5716UHX W Auto Differential panel - BloodCBC and Auto Differential Lab Routine Multiple myeloma not having achieved remission (Multi) Expected: 09/06/2024, Expires: 09/06/2025[facility] Work Phone: Comment on above:Expected: 09/06/2024, Expires: 09/06/2025Start: 09-06-2024 End: 54-85-5952msqnslbciv76/05/2024 1:45 PM EST Infusion [facility] [address] [facility] [address] [place], [place] [facility]-2024 End: 92-79-9640Chcvihh encounter vkdzlzurk70/05/2024 1:00 PM EST Office Visit [facility] [address] [facility] [address] [place] [address] Lisette Perkins, VISUAL MERCHANDISER-SALES DEVELOPMENT REPRESENTATIVE [address] [place] [address] [facility]: 08-25-2024 End: 30-90-9064Ylhyhks encounter wfpywcpnb64/24/2024 3:00 PM EDT Consult [facility] [address] [facility] [address] [place] [address] Sheila Pillai DO 703 [facility] 150 [place], [place] [id number] GENSStart: 08-23-2024 End: 414095-nxusdcqhhgzkye D3 [Mass/volume] in Serum or PlasmaVitamin D 25 hydroxy Total Lab Routine Vitamin D deficiency Expected: 08/23/2024 (Approximate), Expires: 08/23/2025[facility] HealthcareComment on above:Expected: 08/23/2024 (Approximate), Expires: 08/23/2025Start: 08-23-2024 End: 52-79-3141Pxlpvenis (Vitamin B12) [Mass/volume] in Serum or PlasmaVitamin B12 Lab Routine Normocytic anemia Expected: 08/23/2024 (Approximate), Expires: 08/23/2025PR HealthcareComment on above:Expected: 08/23/2024 (Approximate), Expires: 08/23/2025Start: 08-23-2024 End: 93-37-2691Smubxk [Mass/volume] in Serum or PlasmaFolate Lab Routine Normocytic anemia Expected: 08/23/2024, Expires: 08/23/2025[facility] Healthcare Comment on above:Expected: 08/23/2024, Expires: 08/23/2025Start: 08-23-2024 End: 34-87-3294Zpgir 1996 panel - Serum or PlasmaLipid panel Lab Routine Adult general medical examination Hyperlipidemia, group D (CMS/HCC) Expected: 08/23/2024 (Approximate), Expires: 08/23/2025[facility] Healthcare Work Phone: Comment on above:Expected: 08/23/2024 (Approximate), Expires: 08/23/2025Start: 08-23-2024 End: 49-96-2280Zkaplkovmgxd/Creatinine panel in random UrineMicroalbumin / creatinine urine ratio Lab Routine Essential hypertension (CMS/HCC) Type 2 diabetes mellitus with other specified complication, unspecified whether termite treater helper insulin use (CMS/HCC) Expected: 08/23/2024 (Approximate), Expires: 08/23/2025[facility] HealthcareComment on above:Expected: 08/23/2024 (Approximate), Expires: 08/23/2025Start: 08-23-2024 End: 08-23-2025T SPOT TB TESTT SPOT TB TEST Lab Routine History of exposure to tuberculosis Chronic cough Expected: 08/23/2024 (Approximate), Expires: 08/23/2025[facility] Work Phone: Comment on above:Expected: 08/23/2024 (Approximate), Expires: 08/23/2025Start: 08-16-2024 End: 97-78-7073QIQ W Auto Differential panel - BloodCBC and Auto Differential Lab Routine Multiple myeloma not having achieved remission (Multi) Expected: 08/16/2024, Expires: 08/16/2025[facility] Service Area Work Phone: comment on above:Expected: 08/16/2024, Expires: 08/16/2025Start: 08-16-2024 End: 33-02-6356Ooebwisssfsij metabolic 2000 panel - Serum or PlasmaComprehensive metabolic panel Lab Routine Multiple myeloma not having achieved remission (Multi) Expected: 08/16/2024, Expires: 08/16/2025[facility] Work Phone: Comment on above:Expected: 08/16/2024, Expires: 08/16/2025Start: 08-16-2024 End: 00-35-6951mgghnxzzoh73/15/2024 8:30 AM EDT Infusion [facility] [address] [place] [facility]: 08-16-2024 End: 81-15-6476Dfagvsh encounter ulwtgadnl57/15/2024 8:30 AM EDT Office Visit [facility] [address] [place] [address] Supa Lindquist [place] PhD [address] [place] [address] [facility]: 07-26-2024 End: 78-34-8380ocrxdwgjze85/24/2024 1:45 PM EDT Infusion [facility] [address] [place], [place] [facility]ES[facility]art: 07-26-2024 End: 31-48-0819Pvfqiff encounter /24/2024 1:00 PM EDT Office Visit [facility] [address] [place] [address] Lisette Perkins, VISUAL MERCHANDIS[employer]SALES DEVELOPMENT REPRESENTATIVE [address] [place] [address] [facility]: 07-20-2024 End: 92-69-7415VnpaplumihrkxmjBcrarpsqovkqtkd Sleep Center Routine Cough in adult Chronic cough Chronic obstructive pulmonary disease, unspecified COPD type (CMS/HCC) Essential hypertension (CMS/HCC) Paroxysmal atrial fibrillation (CMS/HCC) Hypersomnolence Expected: 07/20/2024 (Approximate), Expires: 07/20/2025[facility] Work Phone: Comment on above:Expected: 07/20/2024 (Approximate), Expires: 07/20/2025Start: 07-20-2024 End: 99-31-4924Qjzkrdwkqwjs consultation with rwsycpr0007/20/2024 10:40 AM EDT Telemedicine [facility] [address] [place] [address] Letty Newsome NP [address] [place] [address] [facility] FMStart: 07-18-2024 End: 18-98-5265Xckksnz encounter qpouqmskl32/16/2024 10:20 AM EDT Office Visit Cardiology [address] [place] [address] [place] [address] [place] [address] Return in about 1 year (around 04/13/2024).CardiologyComment on above:Return in about 1 year (around 04/13/2024).Start: 07-05-2024 End: 33-64-0685qshazpsjrh98/03/2024 11:00 AM EDT Infusion [facility] [address] [place] [address] QC [facility] CenterStart: 73-07-2949Yefqh-19 Vaccine () Covid-19 Vaccine ()[facility]: 30-43-3483WVLMS-19 Vaccine ()COVID-19 Vaccine ()[facility]: 90-92-2745Phqzctrmu vaccinationKettering Health PrebleStart: 06-28-2024 End: 31-79-2962yoqbzjpfve55/27/2024 10:15 AM EDT Infusion [facility] [address] [place] [address] WQ [facility] CenterStart: 06-21-2024 End: 17-78-3360evorfssfeb60/20/2024 10:15 AM EDT Infusion [facility] [address] [place] [address] CE [facility] CenterStart: 06-14-2024 End: 48-59-1434dkcieuwslc91/13/2024 10:15 AM EDT Infusion [facility] [address] [place] [address] VH [facility] CenterStart: 06-14-2024 End: 02-48-4369Pxghxgj encounter procedureIntermountain Healthcare Cancer CenterStart: 06-07-2024 End: 91-58-5787cvnaljdklx73/06/2024 10:15 AM EDT Infusion [facility] [address] [place] [address] KE [facility] CenterStart: 06-07-2024 End: 10-68-1063npbhwkiwoc37/06/2024 8:30 AM EDT Infusion [facility] [address] [place], [place] WC [facility] CenterStart: 05-31-2024 End: 88-03-8944hluifyqsiq48/30/2024 3:45 PM EDT Infusion [facility] [address] [place], [place] RQ [facility] CenterStart: 05-31-2024 End: 89-71-5601HUO W Auto Differential panel - BloodCBC and Auto Differential Lab Routine Multiple myeloma not having achieved remission (Multi) Expected: 05/31/2024, Expires: 05/31/2025[facility] Work Phone: Comment on above:Expected: 05/31/2024, Expires: 05/31/2025Start: 05-31-2024 End: 58-83-2182nwyqwdppny19/30/2024 10:15 AM EDT Infusion [facility] [address] [place] [address] KG [facility] CenterStart: 05-24-2024 End: 05-99-9208fcsblazcqu56/23/2024 2:45 PM EDT Infusion [facility] [address] [place], [place] NV [facility] CenterStart: 05-24-2024 End: 33-59-4686Gyzgmjg encounter jmhpifyjw10/23/2024 2:00 PM EDT Office Visit [facility] [address]st [place] [address] Lisette Perkins, VISUAL MERCHANDISER-SALES DEVELOPMENT REPRESENTATIVE [address] [place] [address] [facility] CenterStart: 05-24-2024 End: 83-11-4060zdakjxekfp98/23/2024 10:15 AM EDT Infusion [facility] [address] [place] [address] [facility]: 05-17-2024 End: 67-82-9283fbjfkxkssv55/16/2024 3:45 PM EDT Infusion [facility] [address] [facility] [place] [facility]: 05-17-2024 End: 99-98-3772Pevzghb encounter buvamjezd03/16/2024 3:20 PM EDT Office Visit [facility] [address] [place] [address] Supa Lindquist MD PhD [address] [place] [address] [facility]: 05-17-2024 End: 39-50-8649WRG W Auto Differential panel - BloodCBC and Auto Differential Lab Routine Multiple myeloma not having achieved remission (Multi) Expected: 05/17/2024, Expires: 05/17/2025[facility] Work Phone: Comment on above:Expected: 05/17/2024, Expires: 05/17/2025Start: 05-17-2024 End: 80-40-9148Cshdirepintap metabolic 2000 panel - Serum or PlasmaComprehensive metabolic panel Lab Routine Multiple myeloma not having achieved remission (Multi) Expected: 05/17/2024, Expires: 05/17/2025[facility] Work Phone: Comment on above:Expected: 05/17/2024, Expires: 05/17/2025Start: 05-17-2024 End: 00-19-1868pwxhjjctgfRCSanta Ana Health Centertart: 05-17-2024 End: 93-64-8452Bmyjjyx encounter /16/2024 9:10 AM EDT Office Visit [facility] [address] [place] [address] [place] PhD [address] [place] [address] [facility]: 05-10-2024 End: 34-29-3764Fkxkz Protein Electrophoresis + [facility]ofixationM[facility]ILLA [facility] Service Area Work Phone: comment on above:Expected: 05/10/2024 (Approximate), Expires: 05/10/2025Start: 05-10-2024 End: 24-47-8657yygjymjloz41/09/2024 10:15 AM EDT Infusion [facility] [address] [place] [address] [facility]: 60-99-4038Hrtbhmrt screeningDiabetes: Retinopathy ScreeningCACHE [facility] HealthcareStart: 05-03-2024 End: 32-47-9058wyoxxurukc11/02/2024 3:45 PM EDT Infusion [facility] [address] [place], [place] [facility]: 05-03-2024 End: 01-65-3155WQN W Auto Differential panel - BloodCBC and Auto Differential Lab Routine Multiple myeloma not having achieved remission (Multi) Expected: 05/03/2024, Expires: 05/03/2025[facility] Service Area Work Phone: comment on above:Expected: 05/03/2024, Expires: 05/03/2025Start: 05-03-2024 End: 89-90-1881qscxkvlqjn34/02/2024 10:15 AM EDT Infusion [facility] [address] [place] [address] [facility] CenterStart: 04-26-2024 End: 81-16-8301hcpwwrequn95/25/2024 10:15 AM EDT Infusion [facility] [address] [place] [address] [facility] CenterStart: 04-19-2024 End: 63-26-2325OUI W Auto Differential panel - BloodCBC and Auto Differential Lab Routine Multiple myeloma not having achieved remission (Multi) Expected: 04/19/2024, Expires: 04/19/2025[facility] Work Phone: Comment on above:Expected: 04/19/2024, Expires: 04/19/2025Start: 04-19-2024 End: 78-75-1680Zhoycjsrnzpgo metabolic 1999 panel - Serum or PlasmaComprehensive metabolic panel Lab Routine Multiple myeloma not having achieved remission (Multi) Expected: 04/19/2024, Expires: 04/19/2025[facility] Work Phone: Comment on above:Expected: 04/19/2024, Expires: 04/19/2025Start: 92-85-3836XkhpdpwxjWyandot Memorial Hospital CenterStart: 04-19-2024 End: 72-38-0410imanstsetpPP [facility] CenterStart: 04-19-2024 End: 07-64-8634Iacupxk encounter procedureIntermountain Healthcare Cancer CenterStart: 30-52-1675Otubazgntncup metabolic 1999 panel - Serum or PlasmaWyandot Memorial Hospital CenterStart: 99-24-1050FgsfdpvumWyandot Memorial Hospital CenterStart: 04-12-2024 End: 90-92-2257jowicokcvj54/11/2024 10:15 AM EDT Infusion [facility] [address] [place] [address] [facility] CenterStart: 62-73-4351Ogrocnazrszsj metabolic 1999 panel - Serum or PlasmaWyandot Memorial Hospital CenterStart: 40-69-2330ZdxoumribWyandot Memorial Hospital CenterStart: 35-21-8681Ccgtqixb to infectious diseases physician [facility] CenterStart: 60-04-7320Ugczuqaeade pathogens DNA and RNA panel - Nasopharynx by JOHANN with non-probe detectionRiverview Health Institutetart: 15-94-7893AnvuvaksqRiverview Health Institutetart: 00-01-1888Uieurepr to gastroenterologistRiverview Health Institutetart: 66-60-5313Eithxqoof culture of sputumRiverview Health Institutetart: 55-96-6504Kqufoock admissionRiverview Health Institutetart: 04-10-2024 [facility]: 80-05-7573RS of head without contrast [facility]: 43-08-1334ZB Unspecified body region WO contrastRiverview Health Institutetart: 64-06-1719Fgdutuzy of Peritoneal Cavity, Percutaneous ApproachRiverview Health Institutetart: 04-05-2024 End: 28-14-3540mrqxfhigfo17/04/2024 3:30 PM EDT Infusion [facility] [address] [place], [place] YK [facility] CenterStart: 04-05-2024 End: 22-14-8716vfoucnfgch07/04/2024 10:15 AM EDT Infusion [facility] [address] [place] [address] OA [facility] CenterStart: 03-29-2024 End: 21-76-5804nflcaqrtop07/28/2024 10:15 AM EDT Infusion [facility] [address] [place] [address] ZB [facility] CenterStart: 03-22-2024 End: 27-68-5069eqrvbrcwoc72/21/2024 2:30 PM EDT Infusion [facility] [address] [place], [place] SJ [facility]: 03-22-2024 End: 48-21-7806Bwlyvwn encounter obilxpcnz37/21/2024 1:20 PM EDT Office Visit [facility] [address] [place] [address] [place]quist [place] PhD [address] [place] [address] [facility] CenterStart: 03-15-2024 End: 31-58-6112nyyfqkmqlv52/14/2024 10:15 AM EDT Infusion [facility] [address] [place] [address] GE [facility] CenterStart: 03-08-2024 End: 92-66-4587bqmdzadpuf37/07/2024 10:15 AM EDT Infusion [facility] [address] [place] [address] FG [facility] CenterStart: 03-01-2024 End: 55-04-2267xkxlwsugye70/30/2024 10:15 AM EDT Infusion [facility] [address] [place] [address] CW [facility] CenterStart: 02-23-2024 End: 36-81-5997hbnlgocqzu46/23/2024 10:15 AM EDT Infusion [facility] [address] [place] [address] YJ [facility] CenterStart: 02-23-2024 End: 33-62-3936Evoadkr encounter /23/2024 9:10 AM EDT Office Visit [facility] [address] [place] [address] Supa Lindquist [place] PhD [address] [place] [address] [facility] CenterStart: 02-16-2024 End: 94-97-2388THF W Auto Differential panel - BloodCBC and Auto Differential Lab Routine Multiple myeloma not having achieved remission (Multi) Expected: 02/16/2024 (Approximate), Expires: 02/13/2025[facility] Work Phone: Comment on above:Expected: 02/16/2024 (Approximate), Expires: 02/13/2025Start: 02-16-2024 End: 53-09-6620Sxodbzzitrmex metabolic 2000 panel - Serum or PlasmaComprehensive Metabolic Panel Lab Routine Multiple myeloma not having achieved remission (Multi) Expected: 02/16/2024 (Approximate), Expires: 02/13/2025[facility] Work Phone: Comment on above:Expected: 02/16/2024 (Approximate), Expires: 02/13/2025Start: 02-16-2024 End: 54-35-9598Fbwkrrwiranpwj light chains.free panel - SerumKappa/Lambda Free Light Chain, Serum Lab Routine Multiple myeloma not having achieved remission (Multi) Expected: 02/16/2024 (Approximate), Expires: 02/13/2025[facility] Work Phone: Comment on above:Expected: 02/16/2024 (Approximate), Expires: 02/13/2025Start: 02-16-2024 End: 31-38-0139Utmywuzpccbbwaf (IgG, IgA, IgM)Immunoglobulins (IgG, IgA, IgM) Lab Routine Multiple myeloma not having achieved remission (Multi) Expected: 02/16/2024 (Approximate), Expires: 02/13/2025[facility] Work Phone: Comment on above:Expected: 02/16/2024 (Approximate), Expires: 02/13/2025Start: 02-16-2024 End: 85-61-3236Kgypvyz electrophoresis panel - Serum or PlasmaSerum Protein Electrophoresis Lab Routine Multiple myeloma not having achieved remission (Multi) Expected: 02/16/2024 (Approximate), Expires: 02/13/2025[facility] Work Phone: Comment on above:Expected: 02/16/2024 (Approximate), Expires: 02/13/2025Start: 02-16-2024 End: 66-78-5237ffyjnyotyc58/16/2024 10:15 AM EDT Infusion [facility] [address] [place] [place] [address] MH [facility] CenterStart: 30-25-9040Ufsdhf scan of lower limb veinsUS venous duplex LE RTRiverview Health Institutetart: 43-64-2530TZ Lower extremity vein - rightRiverview Health Institutetart: 02-09-2024 End: 40-82-1263MT.doppler Lower extremity vein - [facility] Work Phone: comment on above:Once for 1 Occurrences starting 02/09/2024 until 02/09/2024Expected: 02/09/2024 (Approximate), Expires: 02/08/2026Start: 02-09-2024 End: 66-80-2418rvmyryvbes48/09/2024 10:15 AM EDT Infusion [facility] [address] [place] [address] OC [facility] CenterStart: 02-02-2024 End: 72-78-6730wdympoljld99/02/2024 10:15 AM EDT Infusion [facility] [address] [place] [address] NQ [facility] CenterStart: 01-26-2024 End: 62-14-9665rungzvopsh11/26/2024 1:45 PM EDT Infusion [facility] [address] [place], [place] IX [facility] CenterStart: 01-26-2024 End: 23-49-0494Dcsurlk encounter procedureIntermountain Healthcare [facility] Hospitaltart: 77-89-8028Zecvunnsuit observation [Identifier] in Unspecified specimen by Gram stainGram StainRiverview Health Institutetart: 14-67-3639Jsmhfnd referralOhiohealth Doctors Hospital Work Phone: Start: 62-27-1875Reycefxnd culture of sputumRiverview Health Institutetart: 74-76-3916VgnkojeluRiverview Health Institutetart: 77-90-7900Qaphv chest X-rayXR chest 2V*[facility]utetart: 01-19-2024 End: 49-82-7806ndjlixtnek16/19/2024 11:00 AM EDT Infusion [facility] [address] [place] [address] MHSanta Ana Health Centertart: 01-12-2024 End: 35-87-8542yxovxwmljz14/12/2024 11:00 AM EDT Infusion [facility] [address] [place] [address] BZSanta Ana Health Centertart: 01-05-2024 End: 51-80-5098ozwyhskkgv44/05/2024 9:00 AM EST Infusion [facility] [address] [place], [place] GCSanta Ana Health Centertart: 01-05-2024 End: 13-65-8322Pelubmh encounter /05/2024 8:30 AM EST Office Visit [facility] [address] [place] [address] Lisette Perkins, VISUAL MERCHANDISER-SALES DEVELOPMENT REPRESENTATIVE [address] [facility], [address] [address] [facility]: 16-13-3712Jrvfeqoh identified in Blood by CultureRiverview Health Institutetart: 12-08-2023 End: 06-16-9727rsahrycccp07/06/2024 8:00 AM EST Infusion [facility] [address] [place], [place] MNSanta Ana Health Centertart: 01-31-2024Medicare Annual Wellness VisitMedicare Annual Wellness Visit (AWV)[facility]: 11-27-2023 End: 11-22-2024 reactive protein [Mass/volume] in Serum or PlasmaC-Reactive Protein Lab Routine Multiple myeloma not having achieved remission (CMS/HCC) Expected: 11/27/2023 (Approximate), Expires: 11/22/2024[facility] Work Phone: Comment on above:Expected: 11/27/2023 (Approximate), Expires: 11/22/2024Start: 11-27-2023 End: 63-95-8215PYR W Auto Differential panel - BloodCBC and Auto Differential Lab Routine Multiple myeloma not having achieved remission (CMS/HCC) Expected: 11/27/2023 (Approximate), Expires: 11/22/2024[facility] Work Phone: Comment on above:Expected: 11/27/2023 (Approximate), Expires: 11/22/2024Start: 11-27-2023 End: 66-92-4673Kcrgaosj [Mass/volume] in Serum or PlasmaFerritin Lab Routine Multiple myeloma not having achieved remission (CMS/HCC) Expected: 11/27/2023 ( Approximate), Expires: 11/22/2024[facility] Work Phone: Comment on above:Expected: 11/27/2023 (Approximate), Expires: 11/22/2024Start: 11-27-2023 End: 11-32-0982Gxskxryoge [Mass/volume] in Platelet poor plasma by Coagulation assayFibrinogen Lab Routine Multiple myeloma not having achieved remission (CMS/HCC) Expected: 11/27/2023 (Approximate), Expires: 11/22/2024[facility] Work Phone: Comment on above:Expected: 11/27/2023 (Approximate), Expires: 11/22/2024Start: 11-27-2023 End: 23-51-6555Gnyrzhsti [Mass/volume] in Serum or PlasmaMagnesium Lab Routine Multiple myeloma not having achieved remission (CMS/HCC) Expected: 11/27/2023 (Approximate), Expires: 11/22/2024[facility] Work Phone: Comment on above:Expected: 11/27/2023 (Approximate), Expires: 11/22/2024Start: 11-27-2023 End: 04-28-4551Oxptt function 2000 panel - Serum or PlasmaRenal function panel Lab Routine Multiple myeloma not having achieved remission (CMS/HCC) Expected: 11/27/2023 (Approximate), Expires: 11/22/2024[facility] Work Phone: Comment on above:Expected: 11/27/2023 (Approximate), Expires: 11/22/2024Start: 11-27-2023 End: 11-08-5565bjfrbhyhiu93/26/2024 12:45 PM EST Infusion [facility] [address] [place] [address] [facility] CenterStart: 11-27-2023 End: 47-84-0308Oxcraes encounter hwyxsugtf54/26/2024 11:30 AM EST Office Visit [facility] [address] [place] [address] Lisette Perkins, VISUAL MERCHANDIS[employer]SALES DEVELOPMENT REPRESENTATIVE [address] [facility], [address] [address] [facility] CenterStart: 60-63-0518BdyvhnuolRiverview Health Institutetart: 11-24-2023 End: 35-56-3508eiwpkdxwib78/23/2024 2:15 PM EST Lab [facility] [address] [place] [address] [facility] CenterStart: 11-24-2023 End: 42-14-6269Xxgnoen encounter kfowfqvro15/23/2024 2:00 PM EST Office Visit [facility] [address] [place] [address] Lisette Perkins, VISUAL MERCHANDIS[employer]SALES DEVELOPMENT REPRESENTATIVE [address] [facility], [place] [address] [place] [address] [facility]: 26-52-4727Rdwtcqeywu A1c measurementKettering Health PrebleStart: 11-03-2023 End: 07-35-8852glooqjyvkj95/02/2024 9:00 AM EST Infusion [facility] [address] [place], [place] VCSanta Ana Health Centertart: 25-34-1948Fvmdsaj Directive DiscussionAdvance Directive DiscussionOhioHealth Dublin Methodist Hospitaltart: 59-25-3053Bvvgppdmde Health Screening Behavioral Health ScreeningOhioHealth Dublin Methodist Hospitaltart: 37-30-7121YeqqrtkxwRiverview Health Institutetart: 36-41-7341FauohumpoRiverview Health Institutetart: 10-27-2023 End: 13-22-7961wnajkrwmpg54/26/2023 9:00 AM EST Infusion [facility] [address] [place], [place] GKSanta Ana Health Centertart: 10-20-2023 End: 79-67-4401mskcrmthkh24/19/2023 9:00 AM EST Infusion [facility] [address] [place], [place] AISanta Ana Health Centertart: 16-55-3251Douetwszj for malignant neoplasm of breast [facility]bleStart: 10-13-2023 End: 83-07-3687tmnrqambia36/12/2023 9:00 AM EST Infusion [facility] [address] [facility] [place] EZ [facility]: 10-06-2023 End: 89-66-1487putllcfdgs60/05/2023 12:30 PM EST Infusion [facility] [address] [place] [address] IF [facility] Hospitaltart: 10-06-2023 End: 55-64-8622Uoezdyq encounter ogxoqbbjz09/05/2023 10:30 AM EST Office Visit [facility] [address] [place] [address] Supa Lindquist MD PhD [address] [place] [address] [facility] Hospital[facility]art: 09-29-2023 End: 37-54-9311skkfcjktlk33/28/2023 3:30 PM EST Infusion [facility] [address] [place], [place] ZI [facility]: 09-22-2023 End: 90-51-3900tneuudzlqy93/21/2023 9:00 AM EST Infusion [facility] [address] [place], [place] JI [facility]: 09-15-2023 End: 63-20-1540yufnojodbs80/14/2023 3:15 PM EST Infusion [facility] [address] [place], [place] [facility] 09-08-2023 End: 13-66-6315Lgpfxeu electrophoresis panel - Serum or PlasmaM[facility]ILLA [facility] Service Area Work Phone: Comment on above:Expected: 09/08/2023 (Approximate), Expires: 09/08/2024Start: 09-08-2023 End: 64-29-6210eeorbaatfs45/07/2023 11:00 AM EST Infusion [facility] [address] [place] [address] [facility]: 09-08-2023 End: 12-39-6387Uzqmjhj encounter wqhofqmkn53/07/2023 10:30 AM EST Office Visit [facility] [address] [place] [address] Supa Lindquist MD PhD [address] [place] [address] [facility] 09-01-2023 End: 73-89-3595fzugwumnrx13/31/2023 3:15 PM EDT Infusion [facility] [address] [place], [id number] [facility]: 69-35-2566Zfuffsfhwq A1c fewrhfrrlgpPbY1DRjczmuxvk ClinicStart: 08-20-2023 End: 05-02-4325Aeqcnnz encounter bnpvnzedv07/19/2023 3:20 PM EDT Office Visit [facility] [address] [place] [phone] Supa Lindquist MD PhD [address] [place] [address] [facility]: 08-20-2023 End: 90-65-4763mpqkdhafxeSDSanta Ana Health Centertart: 08-17-2023 End: 13-24-0447Epzr-2-Microglobulin [Mass/volume] in Serum or PlasmaBeta 2 Microglobuin Lab Routine 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) Expected: 08/17/2023 (Approximate), Expires: 08/14/2024[place] Work Phone: Comment on above:Expected: 08/17/2023 (Approximate), Expires: 08/14/2024Start: 08-17-2023 End: 47-48-8118Xdlthekvhxymzr light chains.free panel - SerumKappa/Lambda Free Light Chain, Serum Lab Routine 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) Expected: 08/17/2023 (Approximate), Expires: 08/14/2024[facility] Work Phone: Comment on above:Expected: 08/17/2023 (Approximate), Expires: 08/14/2024Start: 08-17-2023 End: 85-23-0801Kafdkieafhnxudg (IgG, IgA, IgM)Immunoglobulins (IgG, IgA, IgM) Lab Routine 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) Expected: 08/17/2023 (Approximate), Expires: 08/14/2024[facility] Work Phone: Comment on above:Expected: 08/17/2023 (Approximate), Expires: 08/14/2024Start: 08-17-2023 End: 76-03-3941Dvgyddr dehydrogenase [Enzymatic activity/volume] in Serum or Plasma by Lactate to pyruvate reactionLactate Dehydrogenase Lab Routine 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) Expected: 08/17/2023 (Approximate), Expires: 08/14/2024[facility] Work Phone: Comment on above:Expected: 08/17/2023 (Approximate), Expires: 08/14/2024Start: 08-17-2023 End: 72-95-2160Hnyob Protein Electrophoresis + ImmunofixationSerum Protein Electrophoresis + Immunofixation Lab Routine 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) Expected: 08/17/2023 (Approximate), Expires: 08/14/2024[facility] Service Area Work Phone: comment on above:Expected: 08/17/2023 (Approximate), Expires: 08/14/2024Start: 08-17-2023 End: 30-24-9466Vlvdwja encounter fbetyroaq10/16/2023 10:00 AM EDT Office Visit [facility] [address] [place] [address] [facility]: 08-17-2023 End: 40-82-5862ojnguucgpdBX [facility] CenterStart: 08-14-2023 End: 10-11-2024C reactive protein [Mass/volume] in Serum or PlasmaUnCenterville Work Phone: Start: 08-14-2023 End: 80-26-7274XEC W Auto Differential panel - BloodSt. [facility] Area Work Phone: Start: 08-14-2023 End: 50-67-8526Gckdqotu [Mass/volume] in Serum or PlasmaUnCenterville Work Phone: Start: 08-14-2023 End: 66-61-0097Tpdgtknqbt [Mass/volume] in Platelet poor plasma by Coagulation assayUnCenterville Work Phone: Start: 08-14-2023 End: 13-40-4978Qhwysumax [Mass/volume] in Serum or PlasmaUnCenterville Work Phone: Start: 08-14-2023 End: 61-36-2016Pbgkf function 2000 panel - Serum or PlasmaUnCenterville Work Phone: Start: 08-14-2023 End: 63-65-6488Neqik [Mass/volume] in Serum or PlasmaUnCenterville Work Phone: Start: 08-14-2023 End: 83-21-6338dhnxtstfkuNP [facility]: 35-32-6821Yskwlkhb identified in Urine by CultureUrine CultureSalem City Hospital Start: 75-50-0650Szmjxucwpmtkn [Mass/volume] in Serum or PlasmaRiverview Health Institutetart: 74-74-3032Pwxztq measurementRiverview Health Institutetart: 83-47-0367MHYMN-19 Vaccine ()COVID-19 Vaccine ()[facility]: 07-03-2023 Influenza vaccinationKettering Health PrebleStart: 78-61-0852OsjvgntctRiverview Health Institutetart: 84-04-6268ZjlcplglgRiverview Health Institutetart: 02-24-2023 End: 45-67-7075GmfaghikaRiverview Health Institutetart: 67-27-6367Ckuo marrow samplingRiverview Health Institutetart: 02-18-2023 End: 51-59-2959JwgswgslzRiverview Health Institutetart: 08-54-5327HjaxslegfRiverview Health Institutetart: 38-58-9178OsjnsrpigRiverview Health Institutetart: 25-11-3994Zpavoygtesvcv metabolic 2000 panel - Serum or PlasmaRiverview Health Institutetart: 02-05-2023 End: 98-68-6327HkuqwgnwxWyandot Memorial Hospital CenterStart: 72-01-4385Kbcqq chemistry [facility]utetart: 42-96-0650JbvpqpfqoRiverview Health Institutetart: 61-21-2760Yapyz chemistryRiverview Health Institutetart: 60-65-2815YlueqrayrRiverview Health Institutetart: 94-20-1553Ebbzr chemistry [facility]etart: 01-29-2023 End: 79-85-3688MvvbrapdiRiverview Health Institutetart: 80-90-4476Yrfwbasv identified in Urine by CultureUrine CultureSalem City Hospital Start: 30-56-6756Leqko culture for bacteria, including anaerobic screenBlood CultureRiverview Health Institutetart: 78-29-7415Npoqu cultureUrine CultureRiverview Health Institutetart: 84-53-5690Bocyqbvm admission [facility]etart: 33-65-0034Gkxrfrdq to oncologist [facility]etart: 14-21-1292UiohazhfjRiverview Health Institutetart: 94-79-6732MystefijuRiverview Health Institutetart: 12-26-2022 [facility]: 12-26-2022 End: 29-46-0091QikiuomeeWyandot Memorial Hospital CenterStart: 59-66-9234DgijuwgxqRiverview Health Institutetart: 51-10-8452RmnkhcbfpRiverview Health Institutetart: 04-66-8905SxwdqsukhRiverview Health Institutetart: 27-47-0195CmustjartWyandot Memorial Hospital CenterStart: 55-37-8622TslwtczyjRiverview Health Institutetart: 36-83-0905OpbblaaxrRiverview Health Institutetart: 23-80-7708ZbhqglnrjWyandot Memorial Hospital CenterStart: 97-79-0930YiixdkiymWyandot Memorial Hospital CenterStart: 97-52-6398DvnkjzibuWyandot Memorial Hospital CenterStart: 54-88-1979SnpemqrgjWyandot Memorial Hospital CenterStart: 11-13-2022 End: 63-92-7455LqvlusfjsWyandot Memorial Hospital CenterStart: 92-75-3596MzccwpvccWyandot Memorial Hospital CenterStart: 25-32-4666DbkbamxmkWyandot Memorial Hospital CenterStart: 11-05-2022 End: 96-78-7512HpynvsoecWyandot Memorial Hospital CenterStart: 02-51-1420HszyizotkWyandot Memorial Hospital CenterStart: 85-29-4349JvihwqpzyWyandot Memorial Hospital CenterStart: 38-69-3180VinkrxhskWyandot Memorial Hospital CenterStart: 72-06-3989HcabjadulWyandot Memorial Hospital CenterStart: 33-86-1571EoeavppviWyandot Memorial Hospital CenterStart: 59-88-3429Qxnkoueebbxn vaccinationJoint [facility] District [facility] Hospital: 43-11-0483Vsezklmimpne Vaccine: 50+ (3 of 3 - PPSV23, PCV20 or PCV21) Pneumococcal Vaccine: 50+ (3 of 3 - PPSV23, PCV20 or PCV21)[facility] Start: 40-49-7538Sswixofoplef Vaccine: 65+ (3 of 3 - PPSV23 or PCV20) Pneumococcal Vaccine: 65+ (3 of 3 - PPSV23 or PCV20)[facility]: 14-51-2545Wtzczmfygfiz Vaccine: 65+ Years (3 - PPSV23 or PCV20)Pneumococcal Vaccine: 65+ Years (3 - PPSV23 or PCV20)[facility]: 62-81-9406Hqwleznyzdob Vaccine: 65+ Years (3 of 3 - PCV20 or PCV21)Pneumococcal Vaccine: 65+ Years (3 of 3 - PCV20 or PCV21)[facility]: 10-05-2022 Pneumococcal Vaccine: 65+ Years (3 of 3 - PPSV23 or PCV20)Pneumococcal Vaccine: 65+ Years (3 of 3 - PPSV23 or PCV20)[facility]: 12-47-2528Tddlxzbovqlb Vaccine: 65+ Years (3 of 3 - PPSV23, PCV20 or PCV21) Pneumococcal Vaccine: 65+ Years (3 of 3 - PPSV23, PCV20 or PCV21)[facility] Start: 57-53-3603RjzkzczfwqKettering Health PrebleStart: 74-81-4676QxztugniaWyandot Memorial Hospital CenterStart: 20-67-5671EmfkkagcfRiverview Health Institutetart: 09-24-2022 End: 09-02-4796IomsvyfinWyandot Memorial Hospital CenterStart: 17-69-8747SavifmsqgWyandot Memorial Hospital CenterStart: 23-08-4158RtpzauxxfWyandot Memorial Hospital CenterStart: 64-52-6260OycuyumbfWyandot Memorial Hospital CenterStart: 83-92-3437YkggacktzWyandot Memorial Hospital CenterStart: 10-43-3793AccqgnbemRiverview Health Institutetart: 53-78-0418OLGWNXZ DIRECTIVE DISCUSSIONADVANCE DIRECTIVE DISCUSSIONOhioHealth Dublin Methodist Hospitaltart: 82-46-4639BOAP DENSITYBONE DENSITYOhioHealth Dublin Methodist Hospitaltart: 2022 Screening for osteoporosisBone Density ScreeningOhioHealth Dublin Methodist Hospitaltart: 03-90-4696CfvuunjctWyandot Memorial Hospital CenterStart: 58-71-2723OridbcqnhRiverview Health Institutetart: 85-88-6900VjknjozhdRiverview Health Institutetart: 63-80-0337HxzotqtceWyandot Memorial Hospital CenterStart: 39-49-0953WzxauumaeRiverview Health Institutetart: 08-20-2022 End: 34-10-3899XgzgkynnhRiverview Health Institutetart: 08-19-2022 End: 25-32-9406UcpbycdpdRiverview Health Institutetart: 08-06-2022 End: 62-34-6268BuivtbzhzWyandot Memorial Hospital CenterStart: 93-65-3208OcavsgigqRiverview Health Institutetart: 07-30-2022 End: 47-00-7477CfqptygqwWyandot Memorial Hospital CenterStart: 07-29-2022 End: 37-53-5102DdgiqkzbgWyandot Memorial Hospital CenterStart: 07-23-2022 End: 83-65-0271EflkztkhuWyandot Memorial Hospital CenterStart: 21-91-0058OxdcssitfRiverview Health Institutetart: 07-15-2022 End: 82-92-9995UrkyigptrWyandot Memorial Hospital CenterStart: 16-71-0243AotltsqybWyandot Memorial Hospital CenterStart: 50-25-8420EpdmniyltRiverview Health Institutetart: 02-47-2164RgshtjjvwWyandot Memorial Hospital CenterStart: 26-11-6115Nleemimwh vaccinationINFLUENZA (#1)[facility]tart: 52-92-8989RsqkapneuRiverview Health Institutetart: 18-82-6105FhtltqwreRiverview Health Institutetart: 93-20-2182QumwyuatqWyandot Memorial Hospital Ctr Work Phone: Start: 79-89-3129HutjdavjuWyandot Memorial Hospital Ctr Work Phone: Start: 88-93-7920Cjudywlz screeningDiabetes: Retinopathy ScreeningKettering Health PrebleStart: 04-09-2022 End: 02-42-5833KoenkcujkWyandot Memorial Hospital CenterStart: 91-72-3020LdhoamrqwWyandot Memorial Hospital Ctr Work Phone: Start: 03-25-2022 End: 56-18-3678UrtgjsosuWyandot Memorial Hospital CenterStart: 50-83-2206NdsdtlnecRiverview Health Institutetart: 03-05-2022 End: 49-58-9294DzgosmdavRiverview Health Institutetart: 82-52-5004BdtcymoutWyandot Memorial Hospital [facility]tr Work Phone: Start: 02-19-2022 End: 22-11-3842RkvttitvtWyandot Memorial Hospital CenterStart: 60-47-4890HdcdlwrysWyandot Memorial Hospital [facility]tr Work Phone: Start: 02-05-2022 End: 39-35-0328JrwpbbdfdWyandot Memorial Hospital CenterStart: 99-21-0163PojvoavvfWyandot Memorial Hospital CenterStart: 44-12-5780CuvshywrsW[facility]andot Memorial Hospital [facility]tr Work Phone: Start: 78-35-2858WjyzgpygdSalem City Hospital Start: 87-76-7138GjnnjgsciRiverview Health Institutetart: 01-01-2022 End: 69-27-9582XrizjfemjWyandot Memorial Hospital CenterStart: 18-89-2058BbzahrkwcW[facility]ot Memorial Hospital [facility]tr Work Phone: Start: 13-23-8928IcbidokldSalem City Hospital Start: 80-01-0757GdwgjnrmmW[facility]andot Memorial Hospital [facility]tr Work Phone: Start: 12-04-2021 End: 97-08-7248QtaczrljlRiverview Health Institutetart: 82-21-2635AhlzokvqjWyandot Memorial Hospital Ctr Work Phone: Start: 47-51-0596AghhdsygwSalem City Hospital Start: 11-19-2021 End: 84-17-4773QlytikotfRiverview Health Institutetart: 22-46-0379XOTMD-19 VACCINE (4 - Booster for Pfizer series)COVID-19 VACCINE (4 - Booster for Pfizer series)[facility]: 96-40-9875JLBCN-19 Vaccine (4 - Pfizer risk series)COVID-19 Vaccine (4 - Pfizer risk series)[facility]Start: 62-79-4017ObmpssnytpJoint Township District Memorial Hospital: 11-12-2021 Comprehensive metabolic 2000 panel - Serum or PlasmaRiverview Health Institutetart: 11-12-2021 End: 89-99-8185BiwwtemunRiverview Health Institutetart: 88-14-0622AtwkpqrvtRiverview Health Institutetart: 15-55-8726JmhijzzjcRiverview Health Institutetart: 73-09-9472OEUKEKRMHJ ASSESSMENTDEPRESSION ASSESSMENTOhioHealth Dublin Methodist Hospitaltart: 28-10-5270YjrthnhvvRiverview Health Institutetart: 10-22-2021 End: 25-15-9089NmsyadayjRiverview Health Institutetart: 10-16-2021 End: 13-00-0594TzftxtezdRiverview Health Institutetart: 20-14-7921JgjjbrpamW[facility]andot Memorial Hospital [facility]tr Work Phone: Start: 92-09-2908JepeyxhpvSalem City Hospital Start: 77-87-7487RvuyjvthsWyandot Memorial Hospital [facility]tr Work Phone: Start: 66-58-8678WfvzwrzwySalem City Hospital Start: 46-68-8068RmykcbcbbWyandot Memorial Hospital [facility]tr Work Phone: Start: 09-25-2021 End: 43-57-1536OixloqpkaRiverview Health Institutetart: 46-39-6456Mtwebmyim [facility] Work Phone: Start: 09-18-2021 End: 66-91-7760VecmojqspWyandot Memorial Hospital CenterStart: 38-47-0074TnscsgiwzW[facility]andot Memorial Hospital [facility]tr Work Phone: Start: 09-04-2021 End: 37-59-8029WlwxtrzbsWyandot Memorial Hospital CenterStart: 82-27-1331IdeyaiouiWyandot Memorial Hospital [facility]tr Work Phone: Start: 08-07-2021 End: 35-81-5976YjqxofbrkWyandot Memorial Hospital CenterStart: 94-80-9113CtqbzeubjWyandot Memorial Hospital CenterStart: 21-55-8069PrgifgyegWyandot Memorial Hospital CenterStart: 06-12-2021 End: 57-12-8964ZykluxzanWyandot Memorial Hospital CenterStart: 57-29-7860PinjpfvtnW[facility]andot Memorial Hospital CenterStart: 05-14-2021 End: 78-25-1358XneonmggpWyandot Memorial Hospital CenterStart: 59-85-2854CvcfbtmttWyandot Memorial Hospital CenterStart: 06-68-7723TbnnhgorcWyandot Memorial Hospital CenterStart: 24-11-0582Xwddimst screeningKettering Health PrebleStart: 04-17-2021 End: 76-76-7711XpsrhkagiWyandot Memorial Hospital CenterStart: 38-01-0356KzpugrmabW[facility]andot Memorial Hospital CenterStart: 59-28-3920KrritkzoxW[facility]andot Memorial Hospital CenterStart: 89-95-5812Sddjrtflz for malignant neoplasm of breastMammogram ScreeningOhioHealth Dublin Methodist Hospitaltart: 96-63-6865LahplpjmnW[facility]andot Memorial Hospital CenterStart: 01-17-2021 [facility] CenterStart: 56-99-1480SndamipozWyandot Memorial Hospital CenterStart: 21-76-4900Utoksehjt B surface antibody levelLDL CHOLESTEROL [facility]tart: 10-30-2020 End: 95-66-3537ZqqcnwsrrWyandot Memorial Hospital CenterStart: 97-12-5628ZfogditeeWyandot Memorial Hospital CenterStart: 77-73-7184GsnxgfmeiWyandot Memorial Hospital CenterStart: 84-36-0219DmhgbemewWyandot Memorial Hospital CenterStart: 42-32-5139HubzsnrsvWyandot Memorial Hospital CenterStart: 08-27-2020 End: 89-21-9461VkfifehyiWyandot Memorial Hospital CenterStart: 77-26-2125KecjfgasiW[facility] Memorial Hospital CenterStart: 36-83-8607EetxavftdWyandot Memorial Hospital CenterStart: 51-94-7056RzbshupzpWyandot Memorial Hospital CenterStart: 87-10-3812AadfegrukWyandot Memorial Hospital CenterStart: 07-17-2020 End: 91-67-4090Aifqyomaz [facility] CenterStart: 14-34-2776Jsstijagv [facility] CenterStart: 29-92-7895Wjapnqvwl [facility] CenterStart: 67-62-5655Leyqtqcvb [facility] CenterStart: 84-21-7956YxszphrctWyandot Memorial Hospital CenterStart: 04-46-3520RmfwhmzoyWyandot Memorial Hospital CenterStart: 99-26-9546HekaogjrlWyandot Memorial Hospital CenterStart: 73-49-6774MrxmjlmmhWyandot Memorial Hospital CenterStart: 68-02-8084Qdeawarqv [facility] CenterStart: 64-37-1937Plhnzpdff [facility] CenterStart: 84-23-4354FquajrzvcWyandot Memorial Hospital CenterStart: 85-73-6897Ocrcdppje [facility] CenterStart: 39-82-9184NwkrirhmtWyandot Memorial Hospital CenterStart: 58-03-0938FiapgjxmrW[facility]andot Memorial Hospital CenterStart: 49-02-6785PeliaarvzW[facility]andot Memorial Hospital CenterStart: 81-41-9709DpdfahmxpW[facility]andot Memorial Hospital CenterStart: 70-05-4389HybzjqiiwW[facility]ot Memorial Hospital CenterStart: 04-24-2020 End: 54-48-7360AxvubfqxmWyandot Memorial Hospital CenterStart: 63-31-7898FnvepoukaW[facility]andot Memorial Hospital CenterStart: 04-11-2020 End: 18-01-4994StfidsfwmW[facility]andot Memorial Hospital CenterStart: 04-10-2020 End: 39-42-9855FejaxlnxvWyandot Memorial Hospital CenterStart: 19-62-1880WkeplbsqsWyandot Memorial Hospital CenterStart: 24-62-6198CnbecephqWyandot Memorial Hospital CenterStart: 00-07-0997WgivucjvuWyandot Memorial Hospital CenterStart: 36-78-7088Pqbocbwsx for malignant neoplasm of colonBarneveld ClinicStart: 28-61-0005NTWXXYREH B (1 of 3 - Risk 3-dose series)HEPATITIS B (1 of 3 - Risk 3-dose series)[facility] Start: 02-24-3385Hnxmrxmwy B Vaccine (1 of 3 - Risk 3-dose series)Hepatitis B Vaccine (1 of 3 - Risk 3-dose series)[facility]: 46-71-4026Chfbxwkid B Vaccines (1 of 3 - Risk 3-dose series)Hepatitis B Vaccines (1 of 3 - Risk 3- dose series)[facility]: 78-79-8396DYW High Risk: (Elderly (60+) or Population) (1 - Risk 60-74 years 1-dose series)RSV High Risk: (Elderly (60+) or Population) (1 - Risk 60-74 years 1-dose series)[facility]: 06-76-7276RKH patients and/or patients aged 60+ years (1 - 1-dose 60+ series)RSV patients and/or patients aged 60+ years (1 - 1-dose 60+ series)[facility]: 70-80-1337XKO Vaccine (1 - 1-dose 60+ series)RSV Vaccine (1 - 1- dose 60+ series)[facility]: 78-64-1765KEE Vaccine (1 - Risk 60-74 years 1-dose series)RSV Vaccine (1 - Risk 60-74 years 1-dose series)[facility]: 48-38-2921FfnlaaospjOhioHealth Arthur [facility]: 08-21-2011 ColonoscopyCOLONOSCOPYOhioHealth Dublin Methodist Hospitaltart: 00-24-6735KHZTFLISBD CANCER SCREENINGCOLORECTAL CANCER SCREENINGOhioHealth [facility] Hospitaltart: 10-01-2008Medicare Annual Wellness VisitMedicare Annual Wellness VisitOhioHealth Dublin Methodist Hospitaltart: 85-30-8354Difgwczbw vaccinationLUNG CANCER SCREENINGOhioHealth Dublin Methodist Hospitaltart: 46-22-4185LNJTOPXDZ (FIT-DNA)COLOGUARD (FIT-DNA)[facility]: 30-28-0654OG COLONOGRAPHYCT COLONOGRAPHYOhioHealth [facility] Hospitaltart: 76-14-1314YFQNZ OCCULT BLOODFECAL OCCULT BLOODOhioHealth [facility] Methodist Hospitaltart: 06-31-6996Ravcvlbxf for malignant neoplasm of colonOhioHealth Dublin Methodist Hospitaltart: 88-47-1834WWQUJKBECFBQD SIGMOIDOSCOPYOhioHealth [facility] Hospitaltart: 43-10-0365EanlfjckwgeKYTGSIJOZAzlssxzjx ClinicStart: 70-29-4263CPpN/Tdap/Td Vaccines (1 - Tdap)DTaP/Tdap/Td Vaccines (1 - Tdap)[facility]: 53-17-2195PyxxbjcxliOhioHealth [facility]: 27-87-8687Cbsoheebl for malignant neoplasm of cervixUnOhioHealth [facility]: 42-89-7764Gjpebdfoe A Vaccine (1 of 2 - Risk 2-dose series)Hepatitis A Vaccine (1 of 2 - Risk 2-dose series)[facility]: 23-96-8419Jewfpfhjl A Vaccines (1 of 2 - Risk 2-dose series)Hepatitis A Vaccines (1 of 2 - Risk 2-dose series)[facility]: 1976 SHINGRIX VACCINE (1 of 2)SHINGRIX VACCINE (1 of 2)[facility] Hospitaltart: 30-30-9193Emdee microalbumin profileSt. Vincent Hospitalrt: 45-05-4870Hzdtn screening for proteinUnOhioHealth [facility]: 53-51-3966Azvmkr Vaccines (1 of 2)Zoster Vaccines (1 of 2)[facility]: 84-85-8802MqsqvhpqnvJoint Township District Memorial Hospital: 86-42-2410KCJEIE PCP TEAM CHRONIC DISEASE VISITANNUAL PCP TEAM CHRONIC DISEASE VISITOhioHealth Dublin Methodist Hospitaltart: 40-59-2093Kbzpmay ScreeningAnxiety ScreeningOhioHealth Dublin Methodist Hospitaltart: 1975 Depression ScreeningDepression ScreeningOhioHealth Dublin Methodist Hospitaltart: 1975 Hepatitis C screeningJoint Township District Memorial Hospital: 1975 SPIROMETRYSPIROMETRYOhioHealth Dublin Methodist Hospitaltart: comp foot exam completed DIABETIC FOOT EXAMOhioHealth Dublin Methodist Hospitaltart: 93-75-9408Lopyjmnb foot examination [facility]: 46-46-3846Ilhkkncr screeningDilated Retinal ExamCleMedina Hospitaltart: 13-73-1265Moehoejrx B screeningURINE ALBUMIN:CREATININE RATIOOhioHealth Dublin Methodist Hospitaltart: 65-57-1282Safjjdrmd C antibody, confirmatory testDILATED RETINAL EXAMOhioHealth Dublin Methodist Hospitaltart: 1963 PNEUMOCOCCAL: 65+ (1 - PCV)PNEUMOCOCCAL: 65+ (1 - PCV)[facility] Hospitalt[facility]: 91-01-4661MSIZJ-19 Vaccine (#1)COVID-19 Vaccine (#1)[facility]: 53-01-1857Eaxuzlgfzr A1c/Hemoglobin.total in ZccjhIGD8QMvhuxwmzx ClinicStart: 59-23-9921QAEKQODHN A (1 of 2 - Risk 2-dose series)HEPATITIS A (1 of 2 - Risk 2-dose series)[facility]: 00-30-5275AVD Vaccines (1 of 1 - Standard series)MMR Vaccines (1 of 1 - Standard series)[facility]: 35-06-4004Xsdnlz wellness visitJoint Township District Memorial Hospital: 72-98-3712Djaiq panelJoint Township District Memorial Hospital: 1957Medicare Annual Wellness VisitMedicare Annual Wellness Visit (AWV) [facility]: 62-67-9496Aimrejlzv for malignant neoplasm of colonKettering Health PrebleAF tumor markerAFP tumor marker Lab Routine 07/12/2025 8:06 AM [facility] Work Phone: Albumin/Globulin ratioSalem City HospitalAlbumin/Globulin ratioSalem City Hospital Lqjdi-0-ycjdxombrzl.tumor marker [Mass/volume] in Serum or PlasmaSalem City HospitalAlpha-1-fetoprotein.tumor marker [Mass/volume] in Serum or PlasmaSalem City HospitalAlpha-1-fetoprotein.tumor marker [Mass/volume] in Serum or PlasmaSalem City Hospital Xauxm-9-tjrfkknjtlm.tumor marker [Mass/volume] in Serum or PlasmaSalem City HospitalAnion gap measurementSalem City Hospital Anion gap measurementSalem City HospitalBacteria identified in Blood by CultureKettering Health Preble Work Phone: bacteria identified in Blood by [facility] CenterBacteria identified in Blood by [facility] CenterBacteria identified in Unspecified specimen by Aerobe culture Salem City HospitalBasophils [#/volume] in Blood by Automated countSalem City HospitalBasophils [#/volume] in Blood by Automated countSalem City HospitalBasophils [#/volume] in Blood by Automated [facility] HospitalBasophils [#/volume] in Blood by Automated [facility] HospitalBasophils/100 leukocytes in Blood by Automated [facility] HospitalBasophils/100 leukocytes in Blood by Automated [facility] Basophils/100 leukocytes in Blood by Automated [facility] HospitalBasophils/100 leukocytes in Blood by Automated [facility] HospitalBlood type and Indirect antibody screen panel - BloodType And Screen Lab Timed Every 72 hours (Lab) until discontinued starting 11/18/2023, 2 [facility] Work Phone: Comment on above:Every 72 hours (Lab) until discontinued starting 11/18/2023, 2 completed End: 09-04-2023 reactive protein [Mass/volume] in Serum or PlasmaKettering Health Preble Work Phone: c reactive protein [Mass/volume] in Serum or PlasmaC- reactive protein Lab Routine Morning draw (Lab) until discontinued starting 11/20/2023, 6 [facility] Work Phone: Comment on above:Morning draw (Lab) until discontinued starting 11/20/2023, 6 completedCalculated LDL cholesterol levelSalem City Hospital End: 84-13-9255NBL W Auto Differential panel - BloodSt. [facility]'s [facility] Work Phone: End: 05-25-9592JQB W Auto Differential panel - BloodKettering Health Preble Work Phone: End: 09-29-9122BMJ W Auto Differential panel - BloodCBC and Auto Differential Lab Routine Multiple myeloma not having achieved remission (CMS/HCC) Every visit for 99 Occurrences starting 11/17/2023 until 11/17/2024, 1 [facility] Work Phone: comment on above:Every visit for 99 Occurrences starting 11/17/2023 until 11/17/2024, 1 completedCBC W Auto Differential panel - BloodCBC and Auto Differential Lab Routine Morning draw (Lab) until discontinued starting 11/19/2023, 7 [facility] Work Phone: Comment on above:Morning draw (Lab) until discontinued starting 11/19/2023, 7 completedCBC W Auto Differential panel - BloodCBC auto differential Lab Routine 10/04/2024 10:15 AM [facility] Work Phone: CBC W Auto Differential panel - BloodCBC auto differential Lab STAT 10/27/2024 8:40 AM [facility] Work Phone: [phone] W Auto Differential panel - BloodCBC auto differential Lab STAT 11/16/2024 9:50 AM [facility] Work Phone: [phone] W Auto Differential panel - BloodCBC auto differential Lab STAT 12/07/2024 10:10 AM [facility] Work Phone: [phone] W Auto Differential panel - BloodCBC auto differential Lab STAT 12/29/2024 9:45 AM [facility] Work Phone: [phone] W Auto Differential panel - BloodCBC auto differential Lab Routine 01/03/2025 8:18 AM [facility] Work Phone: [phone] W Auto Differential panel - BloodCBC auto differential Lab STAT 02/15/2025 11:05 AM [facility] Work Phone: [phone] W Auto Differential panel - BloodCBC auto differential Lab Routine 03/07/2025 8:15 AM [facility] Work Phone: [phone] W Auto Differential panel - BloodCBC auto differential Lab STAT 03/28/2025 8:53 AM [facility] Work Phone: [phone] W Auto Differential panel - BloodCBC auto differential Lab STAT 04/17/2025 9:46 AM [facility] Work Phone: [phone] W Auto Differential panel - BloodCBC auto differential Lab STAT 05/17/2025 10:04 AM [facility] Work Phone: [phone] W Auto Differential panel - BloodCBC auto differential Lab STAT 05/30/2025 9:15 AM [facility] Work Phone: CBC W Auto Differential panel - BloodCBC auto differential Lab STAT 06/07/2025 10:13 AM [facility] Work Phone: CBC W Auto Differential panel - BloodCBC auto differential Lab Routine 06/20/2025 8:15 AM [facility] Work Phone: CBC W Auto Differential panel - BloodCBC auto differential Lab STAT 07/05/2025 10:07 AM [facility] Work Phone: CBC W Auto Differential panel - BloodCBC auto differential Lab STAT 07/12/2025 8:06 AM [facility] Work Phone: CBC W Auto Differential panel - BloodCBC auto differential Lab STAT 07/19/2025 9:45 AM [facility] Work Phone: CBC W Auto Differential panel - BloodCBC auto differential Lab Routine 08/02/2025 10:00 AM [facility] Work Phone: CBC W Auto Differential panel - BloodCBC auto differential Lab STAT 08/09/2025 8:25 AM [facility] Work Phone: CBC W Auto Differential panel - BloodCBC auto differential Lab STAT 08/16/2025 8:14 AM [facility] Work Phone: Ceruloplasmin [Mass/volume] in Serum or Plasma [facility] HospitalCeruloplasmin [Mass/volume] in Serum or Plasma [facility] HospitalCholesterol.total/Cholesterol in HDL [Mass Ratio] in Serum or PlasmaSalem City HospitalComprehensive metabolic 1999 panel - Serum or [facility] Work Phone: Comprehensive metabolic 1999 panel - Serum or Plasma [facility] HospitalComprehensive metabolic 1999 panel - Serum or [facility] HospitalCom[facility] metabolic 1999 panel - Serum or [facility] HospitalComprehensive metabolic 1999 panel - Serum or [facility] HospitalComprehensive metabolic 1999 panel - Serum or [facility] HospitalComprehensive metabolic 1999 panel - Serum or [facility] Comprehensive metabolic 1999 panel - Serum or [facility] HospitalComprehensive metabolic 1999 panel - Serum or [facility] HospitalComprehensive metabolic 1999 panel - Serum or [facility] HospitalComprehensive metabolic 1999 panel - Serum or Plasma [facility] End: 86-02-9671Ytkkzuomzwxji metabolic 1999 panel - Serum or [facility] Work Phone: End: 45-45-9512Kjhovhhekinpi metabolic 1999 panel - Serum or PlasmaComprehensive Metabolic Panel Lab Routine Multiple myeloma not having achieved remission (CMS/HCC) Every visit for 99 Occurrences starting 11/17/2023 until 11/17/2024, 1 [facility] Work Phone: Comment on above:Every visit for 99 Occurrences starting 11/17/2023 until 11/17/2024, 1 completedComprehensive metabolic 1999 panel - Serum or [facility] HospitalComprehensive metabolic 1999 panel - Serum or [facility] HospitalComprehensive metabolic 1999 panel - Serum or [facility] Comprehensive metabolic 1999 panel - Serum or [facility] HospitalComprehensive metabolic 1999 panel - Serum or PlasmaComprehensive metabolic panel Lab STAT 12/29/2024 9:45 AM [facility] Work Phone: Comprehensive metabolic 1999 panel - Serum or Plasma [facility] HospitalComprehensive metabolic 1999 panel - Serum or [facility] HospitalComprehensive metabolic 1999 panel - Serum or [facility] HospitalComprehensive metabolic 1999 panel - Serum or [facility] HospitalComprehensive metabolic 1999 panel - Serum or [facility] HospitalComprehensive metabolic 1999 panel - Serum or [facility] Comprehensive metabolic 1999 panel - Serum or [facility] HospitalComprehensive metabolic 1999 panel - Serum or [facility] HospitalComprehensive metabolic 1999 panel - Serum or PlasmaSalem City HospitalComprehensive metabolic 1999 panel - Serum or Plasma Comprehensive metabolic panel Lab Routine 08/02/2025 10:00 AM [facility] [employer] Work Phone: Comprehensive metabolic 1999 panel - Serum or Plasma [facility] HospitalComprehensive metabolic 1999 panel - Serum or PlasmaSalem City HospitalComputed tomography for radiotherapy planningCleveland Clinic [facility] Work Phone: Computed tomography for radiotherapy [facility] End: 96-83-7646Dsdpbog to Interventional RadiologyMESILLA VALLEY HOSPITAL Service Area Work Phone: Comment on above:Once for 1 Occurrences starting 11/29/[address] [facility] Copper measurementSalem City HospitalCreatinine [Mass/volume] in Serum or PlasmaCreatinine Lab STAT 01/30/2025 10:23 AM [facility] [employer] Work Phone: CT Chest W contrast [facility] End: 50-05-8986LJ Guidance for ablation of tissue of LiverMESILLA VALLEY HOSPITAL Service Area Work Phone: comment on above:Once for 1 Occurrences starting 01/05/2025 until 5CT Sinuses WO contrastSalem City HospitalCT Sinuses WO contrastSalem City HospitalECG COMPLETE [facility] Work Phone: Comment on above:Ordered: 07/18/2024 End: 49-21-2958QdetvyrysnaetebwBATV Cardiology Routine Nonrheumatic aortic valve stenosis Aneurysm of ascending aorta without rupture (HCC) 1 Occurrences starting 07/18/2024 until 5Cleveland ClinicComment on above:1 Occurrences starting 07/18/2024 until 07/18/2025Electrocardiogram, 12-lead PRN ACS symptomsMESILLA VALLEY HOSPITAL Service Area Work Phone: Electrocardiogram, 12-lead PRN ACS symptoms Electrocardiogram, 12-lead PRN ACS symptoms ECG Routine As needed until discontinued starting 11/18/2023[facility] Work Phone: comment on above:As needed until discontinued starting 11/18/2023Eosinophils/100 leukocytes in Blood by Automated [facility] HospitalEosinophils/100 leukocytes in Blood by Automated count [facility] HospitalEosinophils/100 leukocytes in Blood by Automated [facility] HospitalEosinophils/100 leukocytes in Blood by Automated [facility] HospitalErythrocyte distribution width [Ratio] by Automated [facility] Erythrocyte distribution width [Ratio] by Automated [facility] HospitalErythrocyte distribution width [Ratio] by Automated [facility]ittman HospitalErythrocytes [#/volume] in BloodSalem City HospitalErythrocytes [#/volume] in [facility] Erythrocytes [#/volume] in [facility] End: 60-07-3123Sqkiy Urine [facility] Work Phone: End: 09-00-1401Hdykndrk [Mass/volume] in Serum or [facility]Med[facility] Work Phone: Ferritin [Mass/volume] in Serum or PlasmaFerritin Lab Routine Morning draw (Lab) until discontinued starting 11/20/2023, 6 completed [facility] Work Phone: Comment on above:Morning draw (Lab) until discontinued starting 11/20/2023, 6 completed End: 93-00-3407Obopapesja [Mass/volume] in Platelet poor plasma by Coagulation assayK[facility]tering Health [facility] Work Phone: Fibrinogen [Mass/volume] in Platelet poor plasma by Coagulation assayFibrinogen Lab Routine Morning draw (Lab) until discontinued starting 11/20/2023, 6 [facility] Work Phone: Comment on above:Morning draw (Lab) until discontinued starting 11/20/2023, 6 completedFREE K+L LT CHAINS, QN, SFREE K+L LT CHAINS, QN, S Lab Routine 06/07/2025 10:13 AM [facility] Work Phone: Globulin [Mass/volume] in [facility] CenterGlobulin [Mass/volume] in [facility] Glomerular filtration rate [Volume Rate/Area] in Serum, Plasma or Blood by CreatinineSalem City HospitalGlomerular filtration rate [Volume Rate/Area] in Serum, Plasma or Blood by [facility] End: 30-04-8340Xlxegvs [Mass/volume] in Serum or [facility] Work Phone: End: 28-13-0197Bfpsdbj [Mass/volume] in Serum or [facility] Work Phone: Glucose [Mass/volume] in Serum or PlasmaPOCT Glucose Point of Care Testing - Docked Device Routine As needed (Lab) until discontinued starting 11/18/2023[facility] Work Phone: Comment on above:As needed (Lab) until discontinued starting 11/18/2023Hematocrit [Volume Fraction] of [facility]Hematocrit [Volume Fraction] of [facility]ronHematocrit [Volume Fraction] of [facility] Hemoglobin [Mass/volume] in [facility]Hemoglobin [Mass/volume] in [facility]ronHemoglobin [Mass/volume] in [facility] End: 09-23-5793Cquiurc function 2000 panel - Serum or [facility] Work Phone: Homocysteine [Moles/volume] in Serum or Plasma [facility] HospitalIgA [Mass/volume] in Serum or [facility] HospitalIgA [Mass/volume] in Serum or [facility] HospitalIgG [Mass/volume] in Serum or [facility] HospitalIgG [Mass/volume] in Serum or [facility] HospitalIgM [Mass/volume] in Serum or [facility] HospitalIgM [Mass/volume] in Serum or [facility] End: 37-49-6291Txtzdakwwiipln light chains.free panel - SerumKappa/Lambda Free Light Chain, Serum Lab Routine Multiple myeloma not having achieved remission (CMS/HCC) Monthly for 99 Occurrences starting 11/17/2023 until 11/17/2024 [facility] Work Phone: Comment on above:Monthly for 99 Occurrences starting 11/17/2023 until 11/17/2024Immunoglobulin light chains.free panel - Serum [place]/Lambda Free Light Chain, Serum Lab Routine Multiple myeloma not having achieved remission (CMS/HCC) 11/17/2023 9:51 AM [facility] Work Phone: End: 93-37-8002Tnmvtbcbymfjkva (IgG, IgA, IgM)Immunoglobulins (IgG, IgA, IgM) Lab Routine Multiple myeloma not having achieved remission (CMS/HCC) Monthly for 99 Occurrences starting 11/17/2023 until 11/17/2024, 1 [facility] Work Phone: Comment on above:Monthly for 99 Occurrences starting 11/17/2023 until 11/17/2024, 1 completedINR in Platelet poor plasma by Coagulation assaySalem City HospitalIron and Iron binding capacity panel - Serum or PlasmaIron and TIBC Lab STAT 12/29/2024 11:10 AM ESTNOMS HealthcareIron and Iron binding capacity panel - Serum or PlasmaIron and TIBC Lab STAT 01/30/2025 10:23 AM EDTNOMS HealthcareIron and Iron binding capacity panel - Serum or PlasmaIron and TIBC Lab Routine 08/02/2025 10:00 AM EDTNOMS HealthcareIron and Iron binding capacity panel - Serum or PlasmaIron and TIBC Lab STAT 08/16/2025 8:14 AM EDTNOMS HealthcareIron binding capacity [Mass/volume] in Serum or [facility] HospitalIron binding capacity [Mass/volume] in Serum or [facility] HospitalIron saturation [Mass Fraction] in Serum or [facility] Iron saturation [Mass Fraction] in Serum or [facility] HospitalKappa light chains.free [Mass/volume] in SerumSalem City HospitalKaa light chains.free/Lambda light chains.free [Mass Ratio] in Serum [facility] End: 18-06-6097Libbuvh dehydrogenase [Enzymatic activity/volume] in Serum or Plasma by Lactate to pyruvate reactionKettering Health Preble Work Phone: End: 43-67-9227Xkzcqgq dehydrogenase [Enzymatic activity/volume] in Serum or Plasma by Lactate to pyruvate reactionLactate dehydrogenase Lab Routine Multiple myeloma not having achieved remission (CMS/HCC) Monthly for 99 Occurrences starting 11/17/2023 until 11/17/2024, 1 [facility] Work Phone: Comment on above:Monthly for 99 Occurrences starting 11/17/2023 until 11/17/2024, 1 completed End: 28-74-1351Dmzjmav dehydrogenase [Enzymatic activity/volume] in Serum or Plasma by Lactate to pyruvate reactionLactate Dehydrogenase Lab Routine Morning draw (Lab) for 99 Days starting 11/19/2023 until 02/25/2024, 7 completed [facility] Work Phone: Comment on above:Morning draw (Lab) for 99 Days starting 11/19/2023 until 02/25/2024, 7 completedLambda light chains.free [Mass/volume] in Serum or PlasmaSalem City HospitalLeukocytes [#/volume] corrected for nucleated erythrocytes in Blood by Automated [facility] HospitalLeukocytes [#/volume] corrected for nucleated erythrocytes in Blood by Automated [facility] Leukocytes [#/volume] corrected for nucleated erythrocytes in Blood by Automated [facility] CenterLeukocytes [#/volume] in BloodSalem City HospitalLeukocytes [#/volume] in BloodSalem City HospitalLeukocytes [#/volume] in [facility]Lymphocytes [#/volume] in Blood by Automated [facility] Lymphocytes [#/volume] in Blood by Automated countSalem City HospitalLymphocytes [#/volume] in Blood by Automated countSalem City HospitalLymphocytes [#/volume] in Blood by Automated countSalem City HospitalLymphocytes/100 leukocytes in Blood by Automated count [facility] HospitalLymphocytes/100 leukocytes in Blood by Automated countSalem City HospitalLymphocytes/100 leukocytes in Blood by Automated [facility]itt[facility] HospitalLymphocytes/100 leukocytes in Blood by Automated [facility] End: 08-89-9086Gxqubukjq [Mass/volume] in Serum or PlasmaK[facility]tering Health [facility] Work Phone: End: 29-13-5950Waknvqvkk [Mass/volume] in Serum or PlasmaK[facility]tering Health [facility] Work Phone: Magnesium [Mass/volume] in Serum or PlasmaMagnesium Lab Routine Morning draw (Lab) until discontinued starting 11/19/2023, 7 [facility] Work Phone: Comment on above:Morning draw (Lab) until discontinued starting 11/19/2023, 7 completedMagnesium [Mass/volume] in Serum or Plasma Magnesium Lab STAT 12/29/2024 11:10 AM [facility] Work Phone: MCH [Entitic mass] by Automated [facility]itt[facility] HospitalMCH [Entitic mass] by Automated [facility]itt[facility] HospitalMCH [Entitic mass] by Automated [facility]itt[facility] HospitalMCHC [Mass/volume] by Automated [facility]itt[facility] HospitalMCHC [Mass/volume] by Automated [facility]itt[facility] HospitalMCHC [Mass/volume] by Automated [facility]itt[facility] HospitalMCV [Entitic volume] by Automated [facility]itt[facility] HospitalMCV [Entitic volume] by Automated [facility]itt[facility] HospitalMCV [Entitic volume] by Automated [facility]itt[facility] HospitalMethylmalonate [Moles/volume] in Serum or PlasmaSalem City HospitalMicroalbumin/Creatinine [Mass Ratio] in UrineSalem City HospitalMonocytes [#/volume] in Blood by Automated countSalem City HospitalMonocytes [#/volume] in Blood by Automated countSalem City HospitalMonocytes [#/volume] in Blood by Automated [facility]itt[facility] HospitalMonocytes [#/volume] in Blood by Automated [facility]itt[facility] HospitalMonocytes/100 leukocytes in Blood by Automated [facility] Monocytes/100 leukocytes in Blood by Automated [facility]itt[facility] HospitalMonocytes/100 leukocytes in Blood by Automated [facility]itt[facility] HospitalMonocytes/100 leukocytes in Blood by Automated [facility]itt[facility] HospitalMR Abdomen WO and W contrast [facility] HospitalMR Abdomen WO and W contrast [facility] Neutrophils [#/volume] in Blood by Automated [facility] HospitalNeutrophils [#/volume] in Blood by Automated [facility] HospitalNeutrophils [#/volume] in Blood by Automated [facility] HospitalNeutrophils [#/volume] in Blood by Automated count [facility] HospitalNeutrophils/100 leukocytes in Blood by Automated [facility] HospitalNeutrophils/100 leukocytes in Blood by Automated [facility]itt[facility] HospitalNeutrophils/100 leukocytes in Blood by Automated [facility] Neutrophils/100 leukocytes in Blood by Automated [facility]itt[facility] HospitalNucleated erythrocytes [Presence] in Blood by Automated [facility]itt[facility] HospitalNucleated erythrocytes [Presence] in Blood by Automated [facility]ittman HospitalNucleated erythrocytes [Presence] in Blood by Automated [facility]ittman HospitalNucleated erythrocytes [Presence] in Blood by Automated [facility] HospitalPatient [facility] Work Phone: Patient referralWyandot Memorial [facility] Work Phone: End: 24-45-5828Eclbolfra [Mass/volume] in Serum or PlasmaKettering Health [facility] Work Phone: Platelet mean volume [Entitic volume] in Blood by Automated [facility]ittman HospitalPlatelet mean volume [Entitic volume] in Blood by Automated [facility]ittman HospitalPlatelet mean volume [Entitic volume] in Blood by Automated [facility]ittman HospitalPlatelet morphology finding [Identifier] in [facility]ronPlatelets [#/volume] in [facility]ronPlatelets [#/volume] in [facility]ronPlatelets [#/volume] in [facility] End: 63-92-8130Ehcxqlf electrophoresis panel - Serum or PlasmaSerum Protein Electrophoresis Lab Routine Multiple myeloma not having achieved remission (CMS/HCC) Monthly for 99 Occurrences starting 11/17/2023 until 11/17/2024 [facility] Work Phone: Comment on above:Monthly for 99 Occurrences starting 11/17/2023 until 11/17/2024Protein electrophoresis panel - Serum or PlasmaSerum Protein Electrophoresis Lab Routine Multiple myeloma not having achieved remission (CMS/HCC) 11/17/2023 9:51 AM [facility] Work Phone: Prothrombin time (PT)[facility] PT Whole bodySalem City Hospital End: 15-90-6181Kzoyk oximetry, continuousPulse oximetry, continuous Respiratory Care STAT Multiple myeloma not having achieved remission (CMS/HCC) Continuous until discontinued starting 11/18/2023[facility] Work Phone: comment on above:Continuous until discontinued starting 11/18/2023 End: 37-46-7351Rfymq function 2000 panel - Serum or [facility] Work Phone: Renal function 2000 panel - Serum or PlasmaRenal Function Panel Lab Routine Morning draw (Lab) until discontinued starting 11/19/2023, 6 [facility] Work Phone: Comment on above:Morning draw (Lab) until discontinued starting 11/19/2023, 6 completedSCAN AND CBCSCAN AND CBC Lab Routine 01/30/2025 10:23 AM [facility] Work Phone: End: 22-93-5463Wfxez [Mass/volume] in Serum or PlasmaMESILLA VALLEY HOSPITAL Service [facility] Work Phone: End: 56-34-0433Tcmui [Mass/volume] in Serum or [facility] Work Phone: End: 71-64-1682Hufbe [Mass/volume] in Serum or PlasmaUric acid Lab Routine Multiple myeloma not having achieved remission (CMS/HCC) Monthly for 99 Occurr ences starting 11/17/2023 until 11/17/2024, 1 [facility] Work Phone: Comment on above:Monthly for 99 Occurrences starting 11/17/2023 until 11/17/2024, 1 completedUrate [Mass/volume] in Serum or Plasma Uric Acid Lab Routine Morning draw (Lab) until discontinued starting 11/19/2023, 7 [facility] Work Phone: Comment on above:Morning draw (Lab) until discontinued starting 11/19/2023, 7 completed End: 17-31-2935Lamdlcqryl complete W Reflex Culture panel - UrineKettering Health Preble Work Phone: End: 17-52-1847EH Guidance for ablation of tissue of LiverMESILLA VALLEY HOSPITAL Service Area Work Phone: comaprh on above:Once for 1 Occurrences starting 01/05/2025 until 01/05/2025 End: 28-08-2108VL Guidance for biopsy of LiverUS guided needle liver biopsy Imaging Routine Liver cell carcinoma (Multi) Once for 1 Occurrences starting 01/05/2025 until 01/05/2025[facility] Service Area Work Phone: comabkr on above:Once for 1 Occurrences starting 01/05/2025 until 01/05/2025US Heart TransthoracicWyandot [facility] Work Phone: US [facility] CenterVLDL cholesterol measurementMercy Health West Hospital [facility] Work Phone: [facility] Immunizations Immunization DateImmunizationNotesCare YucnpaptSbiwcmsj55-28-9033pvhrnuzum, high dose seasonal, preservative-freeBrian Lopez MD Work Phone: [facility] HospitalYkelfxnsuu74-90-6908BMO, recombinant, protein subunit RSVpreF, adjuvant reconstitu, 120mcg/0.5mL, PF (Arexvy)Yinka Lopez MD Work Phone: noWright Memorial HospitalYffrczqhvf18-95-4305wzusnlygd virus vaccine, unspecified formulationDahoward Pedersen DO Work Phone: noWright Memorial HospitalVrhswpivxp23-06-2890agrkykrzk, injectable, quadrivalent, preservative [facility] Work Phone: [phone]hnulen virus vaccine, unspecified formulationSGlenbeigh Hospital Work Phone: [phone]k, injectable, quadrivalent, preservative [facility] Work Phone: [phone]dwbwye polysaccharide vaccine, 23 valSum[facility] Health Work Phone: [phone]z influenza, intradermal, preservative [facility] Work Phone: [phone]rn, seasonal, injectable[facility] Work Phone: [phone]ngfkdrkmh conjugate vaccine, 13 [facility] Work Phone: NEGATED: Highlighted row has not occurred!05-21-2023 Pneumococcal Conjugate PCV 20Amy Warchol [employer] Work Phone: Liberty HospitalComment on above:Deferred: Patient Refused Payers DatePayer CategoryPayerPolicy [id number] [id number] 2013Medicaid [id number] 2008Medicare [id number] [id number] [id number] [id number] 2..1.414794.3.57[id number] 2..1.183925.3.57[id number] 2..1.006243.3.57[id number] 2..1.022432.3.57[id number] 2..1.014867.3.57[id number] 2..1.795454.3.57[id number] 2.0.1.518025.3.57[id number] 2.0.1.295172.3.57[id number] 2.16.840.1.162717.3.579.2.301[id number] 2.16840.1.754114.3.579.2.984789-42-8216Yzgesso66420035 2.16840.1.249826.3.579.2.893138-87-7596Kcunkls55902395 2.840.1.846510.3.579.2.921845-79-8408Eusivth59202468 2.840.1.726411.3.579.2.059163-38-9796Ivyngvo24413564 2.0.1.940533.3.579.2.628960-10-3910Cynwuey18131060 2.0.1.581610.3.579.2.400979-83-1836Iqrndzv75855757 2.0.1.679941.3.579.2.896112-26-7062Yaunrhn72433621 2.0.1.128190.3.579.2.780588-97-6208Ujzgcso84365443 2.840.1.405712.3.579.2.800432-38-6138Wqcnqtf20330387 2.0.1.424358.3.579.2.896951-79-5928Mfedjla31581836 2.0.1.708935.3.579.2.654721-40-2380Yhqmltf69885379 2.840.1.031738.3.579.2.134877-27-5047Zxdwlzw77528667 2.840.1.893602.3.579.2.363557-25-3540Hyovsrg90290847 2.16.840.1.432559.3.579.2.576900-60-4381Lizcdci69462361 2.16.840.1.288677.3.579.2.550746-76-5131Ckluwgd30349679 2.16.840.1.183991.3.579.2.568288-85-0542Bmihqkr86432332 2.16.840.1.508735.3.579.2.182427-07-1673Qapghcr07323280 2.16.840.1.426390.3.579.2.605387-88-4346Syllzba37793804 2.840.1.045389.3.579.2.525667-37-5858Ilpyrer26616308 2.840.1.667194.3.579.2.363180-47-5709Ijcdkpy97653765 2.840.1.362406.3.579.2.461636-33-8976Zbwympi76695014 2.840.1.481218.3.579.2.135708-23-8530Ixlotke72472300 2..840.1.390450.3.579.2.193842-28-5165Emewoss53266220 2.840.1.490153.3.579.2.329477-70-0884Eabxcqd55573999 2.16.840.1.011192.3.579.2.316164-50-3974Jqpwhzb43404569 2.840.1.907569.3.579.2.099697-28-7180Xdvdkgl12115383 2.16.840.1.421602.3.579.2.772050-97-4457Qtpgmyp13077908 2.16840.1.690957.3.579.2.714424-33-7252Ovusgni55088599 2.16.840.1.175474.3.579.2.719260-62-2823Dlbfbhf89540522 2.16.840.1.902677.3.579.2.851294-98-5187Fjkrsnj66315378 2.16.840.1.891868.3.579.2.919496-97-2958Wcogfro41592036 2.16.840.1.142376.3.579.2.52666-24-7323Kbybkwb01848960 2.16.840.1.803484.3.579.2.63866-93-0053Byovxob07239241 2.16.840.1.479052.3.579.2.53614-72-6135Rifzvcd47731892 2.16.840.1.091559.3.579.2.505821-52-2680Ksbmdwz51301021 2.16.840.1.755065.3.579.2.409326-35-6008Zkhvutn20872584 2.16.840.1.382651.3.579.2.638825-18-5563Vehqgzg99494449 2.16.840.1.274990.3.579.2.495014-23-5059Oguqtks07381377 2.16.840.1.539930.3.579.2.197525-89-8710Dmdilxh10736210 2.16.840.1.273195.3.579.2.04156-28-5686Wlzcksl49721643 2.16.840.1.771471.3.579.2.89127-14-9924Prakikq90259617 2.16.840.1.145761.3.579.2.107720-57-7182Enwxvlo96610531 2.16.840.1.681397.3.579.2.068097-44-4752Etuqcpx31928122 2.16.840.1.221937.3.579.2.840572-95-4070Pbbpozd19172600 2.840.1.763124.3.579.2.582417-97-1386Sncyzxr4720781 2.0.1.871526.3.579.2.738698-84-6389Szutoud0696143 2..1.326334.3.579.2.717114-50-9946Dvwamfs2503738 2.0.1.695354.3.579.2.959364-73-4510Umuheic6746966 2.0.1.008859.3.579.2.226367-79-4382Ajlrspa5451008 2.0.1.898944.3.579.2.153555-40-8646Bwisabl8557785 2.0.1.991700.3.579.2.116709-59-5387Adxtkqb9747540 2.840.1.776141.3.579.2.7344Ekfpnwq03024460 2.0.1.369252.3.579.2.531 Ylplpcu99252175 2.16.840.1.008516.3.579.2.685Xgqhbbw89635288 2.840.1.114858.3.579.2.759Dtygnxd80154931 2.840.1.435386.3.579.2.531 Zrkqkua78222985 2.840.1.228691.3.579.2.629Qgikqnf08017282 2.16.840.1.424035.3.579.2.851Wdbfonh16067831 2.16.840.1.364981.3.579.2.531 Jkqkfjo37567222 2.16.840.1.193931.3.579.2.012Dlrwhrj51691208 2.16.840.1.907361.3.579.2.998Uoxcolq53984327 2.16.840.1.963730.3.579.2.531 Ifuugza06344613 2.16.840.1.015741.3.579.2.483Lqqmijw35515998 2.16.840.1.866617.3.579.2.149Naazsaq48859357 2.16.840.1.696834.3.579.2.531 Zeqxpdr15989159 2.16.840.1.110455.3.579.2.604Arzvgin64303343 2.16.840.1.919482.3.579.2.300Laewkbo35418642 2.16.840.1.170087.3.579.2.531 Kylnibg61181541 2.16.840.1.293953.3.579.2.531 Social History DateTypeDetailFacilityStart: 07-10-2022 End: 00-55-5064Kzizoyg smoking status NHISEx-smoker (finding)[facility]etart: 08-03-2023 End: 83-49-8158Twbwdfm of tobacco useC[facility] Work Phone: Start: 13-01-6157Wcl Assigned At BirthFeAvita Health Systemtart: 11-02-1976 End: 68-98-8276Jsbfkfm of tobacco useCurrent smokerOhioHealth Dublin Methodist Hospitaltart: 11-02-1976 End: 30-69-6252Recwqmn of tobacco useCigarette SmokerOhioHealth Dublin Methodist Hospitaltart: 06-01-2013 End: 85-48-9232Rsyxmasiji smoked current (pack per day) - Krbalrhu7Tldvecfxi ClinicStart: 06-01-2013 End: 04-42-2845Puwogzm use and exposureSmokeless tobacco non-userOhioHealth Dublin Methodist Hospitaltart: 34-89-0391Nlcphur intakeCurrent non-drinker of alcohol (finding) [facility] Hospitaltart: 91-13-5371Wqz Assigned At BirthNot on fileBarneveld ClinicStart: 07-22-2023 End: 41-50-5058Iahbzvg smoking status NHISNever smoked tobacco (finding) [facility] HospitalHow often to you have a drink containing alcohol?Never[facility] Work Phone: Start: 09-26-2022 End: 00-00-9307Etm many standard drinks containing alcohol do you have on a typical day?[facility] Work Phone: Start: 07-24-2023 End: 78-64-6589Ztjpscmx to SARS-CoV-2 (event)Not sureK[facility]tering Health [facility] Work Phone: History of tobacco usePassive smokerK[facility]tering Health [facility] Work Phone: Start: 09-08-2023 End: 27-17-6682Uolbcrj intakeEx-drinker (finding)[facility] Work Phone: How hard is it for you to pay for the very basics like food, housing, medical care, and heatingNot very hardKettering Health PrebleIn the past 12 months, was there a time when you were not able to pay the mortgage or rent on time?NoK[facility] Health [facility] Work Phone: Start: 06-46-8391Rnjvwek use and exposureFormer smokeless tobacco userNOMS HealthcareStart: 05-30-2024 End: 20-95-2716Uuxwmwbwv beverage intakeLifetime non-drinker (finding)[facility] HealthcareStart: 38-71-0244Vuvdvkg Commentcafffeine intake: 1-2 cups per dayNOPR HealthcareStart: 09-14-2024 End: 14-35-9167ZlzFbosaa (finding)[facility] Instituteexual OrientationExecutive [facility] start: 22-90-1879Ksasko orientationHeterosexual (finding)[facility] Medical Equipment Procedure CodeEquipment CodeEquipment Original TextEquipment IdentifierDates [id number]: each [id number]: 05-30-2024 End: 09-07-2024 Goals DatePatient GoalDesired Activity/StatePersonal health goalPersonal health goal Functional Status BkzhLjdlssazydVachatJxkyvyxa18-10-5485Zaazadpa - suicide severity rating scale screener - recent [C-SSRS][facility] Work Phone: [phone]) 307-735208046882-39-7839Zwvge score [AUDIT-C]0 06/15/2025 8:51 AM EDT Negar Carlos LPNNOMS Wubhrusjrx85-15-5160Nygqwns Health Questionnaire 2 item (PHQ-2) [Reported][facility] HospitalGnygqeinrv78-63-4450Knlmlvq Health Questionnaire 2 item (PHQ-2) [Reported][facility] HospitalKdgcpnydcf33-65-4102Ijknv score [AUDIT-C]0 05/15/2025 10:09 AM EDT Negar Carlos MANHermann Area District HospitalUdilezvocy18-39-3625Cwcbi score [AUDIT-C]0 04/10/2025 9:53 AM EDT Negar Carlos MANOMS Yrjkkbdzia42-92-2506 Patient Health Questionnaire 2 item (PHQ-2) [Reported][facility] HospitalLbjdcxvqen57-19-1615 Patient Health Questionnaire 2 item (PHQ-2) [Reported][facility] HospitalOtdwbpgtjb45-33-0826 Total score [AUDIT-C]0 03/01/2025 1:28 PM EDT Negar Carlos MANH[facility] Hospital 71-64-1887Orsktfteui statusPatient at BaselineWyandot [facility] Work Phone: 1([phone] 911-536403633311-88-7070Wygtmkdlgj statusPatient at Baseline [facility] Work Phone: 1(211) [phone]sd you deaf, or do you have serious difficulty hearingNo 04/27/2019 3:12 PM EDT Edilberto Hernandes RN [facility] CenterYdwlea63-39-6862Gws you blind, or do you have serious difficulty seeing, even when wearing glassesNo 04/27/2019 3:12 PM EDT Edilberto Hernandes RN [facility]06-26-2019Do you have serious difficulty walking or climbing stairsNo 04/27/2019 3:12 PM EDT Edilberto Hernandes RN [facility]06-26-2019Do you have difficulty dressing or bathingNo 04/27/2019 3:12 PM EDT Edilberto Hernandes RN [facility] CenterKoocfe34-60-3231Wmlkoyy of a physical, mental, or emotional condition, do you have difficulty doing errands alone such as visiting a physician's office or shoppingNo 04/27/2019 3:12 PM EDT Edilberto Hernandes RN [facility] Mental Status IdtjVprmaofpdcDihgmeYattdusr78-40-5156Erxqnqeij functionPatient at Baseline [facility] Work Phone: [phone]bnspkmr functionPatient at Baseline [facility] Work Phone: [phone] 415-473206741796-86-2053Unyzypb of a physical, mental, or emotional condition, do you have serious difficulty concentrating, remembering, or making decisionsNo 04/27/2019 3:12 PM EDT Edilberto Hernandes RN [facility] Clinical Notes 11-24-2017 to 08-24-2025 Note Date & IlyvDmhmZychhxoc64-72-8177 Telephone encounter Note* Telephone Encounter - Yeni Pedersen - 08/24/2025 8:36 AM EDT Patient called in a had some questions about visit she was seen for in office this week... with results from lab and whether it is contagious.. patient would like a call to discuss at your earliest convenience. [facility] HospitalCcpjigeaot93-19-5738 Miscellaneous Notes* Telephone Encounter - Yeni Nuvia - 08/24/2025 8:36 AM EDT Patient called in a had some questions about visit she was seen for in office this week... with results from lab and whether it is contagious.. patient would like a call to discuss at your earliest convenience. documented in this encounterLiberty HospitalLkpxlfbnio05-54-8228 History of Present illness Narrative* Emely Pedersen, - 08/22/2025 2:20 PM EDT Images from the original note were not included. FAMILY MEDICINE NOTE Chief Complaint: Cough, URI, and Pain With Breathing HPI: URI: Historian of HPI: patient Mojgan Pérez is a 69 y.o. female who presents [...] % 98 % 98 % Temp 97.7 F 98 F 98.2 F Resp 20 20 20 Height (in) 5' [...] 1 tablet (40 mg) by mouth Daily EGIRTFY-VCOHEUNHQJR-WNRRXPQQOH (BREZTRI AEROSPHERE) 160-9-4.8 MCG/ACT AEROSOL Inhale 2 [...] minor errors or omissions may be present. Emely Pedersen DO [1] Past Medical History: Diagnosis Date [...] Hives, Rash and Unknown documented in this encounterLiberty HospitalSfzxuekzsb43-96-4215 NoteHNO ID: [id number] Author: EVER LEDESMA MA Service: ? Author Type: Ski Guide Type: Progress Notes Filed: 08/17/2025 16:38 Note Text: Utility Clerk present: [facility]maW[facility] Note HNO ID: [id number] Author: JUAN J MENDEZ MD Service: ? Author Type: Physician Type: Progress Notes Filed: 08/17/2025 16:38 Note Text: SUBJECTIVE: Mojgan Pérez is a 69 year old female. Patient presents with: Cardiology Follow Up Mojgan Pérez was referred by Self HPI: The patient is a pleasant, 69-year-old female, who underwent extensive evaluation at the [facility], April 2019, after presenting with chest discomfort. Testing included a CTA of the ascending aorta which revealed a maximum dimension of 4.1 cm. Stress PET Testing revealed reversible ischemic territory, followed by heart catheterization, which revealed mild diffuse disease of all 3 coronaries, which was treated medically. Echocardiogram, June 2020, revealed a maximum ascending aorta dimension of 4.3 cm, in the setting of a trileaflet aortic valve, with a trace [...] Yes, Claudication:No CONDITIONS: Hypertension: Yes, Heart failure:No, [place] Heart Association Functional Classification: Class II, Atrial fibrillation:No, History of myocardial infarction/angina: Yes, History of CABG/PCI:No, Valvular heart disease: No, Cardiomyopathy: No, Aortic diseases: Yes, Peripheral vascular disease: No, History of cerebrovascular accident: No, History of pulmonary embolism No, History of DVT No. History of rheumatic fever: No, History of transient ischemic [...] file Gets together: Not on file Attends roman catholic service: Not on file Active member of club or organization: Not on file Attends meetings of clubs or organizations: Not on file Relationship status: Not on file Intimate partner violence: Fear of current or ex partner: Not on file Emotionally abused: Not on file Physically abused: Not on file Forced sexu (more content not included)...[facility]09-02-2025 NotePatient Education Custom Cystoscopy ??? Voiding after the procedure: there may be some pain, burning, urgency, frequency and blood tinged urine following the procedure. These symptoms usually resolve within 2-5 days. Drink the amount of fluid it takes to keep the urine pink to yellow or clear in color. Drinking enough water and fluids will help to ease any discomfort after your procedure. ??? If you are having problems that seem out of the ordinary, please call. ??? If unable to contact your physician and you feel it is an emergency, go to the nearest emergency room or call 911 ??? Diet ??? you may resume your normal diet. ??? Activity ??? you may resume your normal activities ??? Call if you have a fever over 100 degrees.[facility] 07-04-2025 NoteHistory and Physical Patient: MOJGAN PÉREZ Age: 69 years Sex: Female : 1955 Associated Diagnoses: None Author: Marlon VALENZUELA MD Preoperative Information Indication for surgery: Gross hematuria, Personal history of kidney stones. Accompanied by: No one. Source of history: Self. Chief Complaint Gross hematuria, Personal history of kidney stones Review of Systems Constitutional: Negative. Eye: Negative. Ear/Nose/Mouth/Throat: Negative. Respiratory: No shortness of breath. Cardiovascular: No palpitations. Genitourinary: Gross hematuria, Personal history of kidney stones. Endocrine: Negative. Musculoskeletal: Negative. Neurologic: Alert and oriented X4. Health Status Allergies: Allergic Reactions (Selected) Severity Not Documented Avelox- Unknown. Vibramycin- Unknown. Voltaren- Unknown. Current medications: Home Medications (16) Active acyclovir 400 mg Tab 400 mg = 1 tab(s) Advair 250 mcg-50 mcg Powder , Inhalation, BID albuterol 0.083% Inh [place] 3 mL 2.5 mg = 3 mL, NEB, As Directed carvedilol 12.5 mg Tab 12.5 mg = 1 tab(s), Oral, BID Cymbalta 60 mg, Oral, Daily fluticasone propionate 50 mcg, Inhalation Keflex 500 mg Cap 500 mg = 1 cap(s), Oral, Daily Lipitor 80 mg Tab 80 mg = 1 tab(s), Oral, Daily metformin 500 mg, Oral, BID morphine 15 mg/8 hr oral tablet, extended release 15 mg = 1 tab(s) omeprazole 40 mg, Oral, Daily oxycodone 10 mg, Oral semaglutide 2 mg/3 mL (0.25 mg or 0.5 mg dose) subcutaneous solution (Ozempic) spironolactone 50 mg Tab 50 mg = 1 tab(s) sulfamethoxazole-trimethoprim 800 mg-160 mg Tab See Instructions Vitamin D 50,000 International_Unit, Oral, Daily Problem list: All Problems Anemia / SNOMED CT 929822048 / Confirmed Multiple myeloma / SNOMED CT 766729985 / Confirmed Chronic obstructive pulmonary disease / SNOMED CT 64647601 / Confirmed Depression / SNOMED CT 56355866 / Confirmed Diabetes / SNOMED CT 491033701 / Confirmed Headache / SNOMED CT 59624752 / Confirmed Hypertension / SNOMED CT 7137445058 / Confirmed Hyperlipidemia / SNOMED CT 28576471 / Confirmed Disease of liver / SNOMED CT 112826129 / Confirmed History of kidney stones / SNOMED CT 8606972476 / Confirmed Gross hematuria / SNOMED CT 589154141 / Confirmed Histories Family History: Asthma Sister Hypertension Father Mother Congenital heart disease Mother Mitral valve disorder Brother Arthritis Father Mother Sister Alcoholism Father Hyperlipidemia Sister Cancer Father Mother Brother Sister Procedure history: Colonoscopy (829946234) on 05/01/2015 at 59 Years. Appendectomy (549537324). Tubal ligation (166397688). Cholecystectomy (02300121). Hemorrhoidectomy (30395539). Abdominal hysterectomy (675444507). Carpal tunnel release (953691364). Repair of single tendon (288142162). History of hernia repair (6951452200). Arthroscopic knee procedure (5560662965). Comments: 12/25/2020 10:45 [address] Arthroscopy of knee (259694311). Comments: 12/25/2020 10:46 Jacquelyn Gregory Rt. History of operative procedure on elbow (8391078204). Procedure on wrist (179598801). Social History Social & Psychosocial Habits Alcohol 06/12/2025 Risk Assessment: Denies Alcohol Use Tobacco 06/12/2025 Tobacco Use: Former smoker, quit more Smokeless tobacco use: Never Type: Cigarettes . Physical Examination General: Alert and oriented, No acute distress. HENT: Normocephalic. Neck: Supple. Respiratory: Respirations are non-labored, Symmetrical chest wall expansion. Cardiovascular: Normal peripheral perfusion. Gastrointestinal: Soft. Genitourinary: Gross hematuria, Personal history of kidney stones. Musculoskeletal Normal strength. Integumentary: Warm, Dry, [place]. Neurologic: Alert, Oriented. Psychiatric: Cooperative, Appropriate mood & affect. Impression and Plan Diagnosis Gross hematuria (HQN53-CE R31.0, Working, Medical). Personal history of kidney stones (FXD12-CM Z87.442, Working, Medical). Condition: Stable. Counseled: Patient, Regarding diagnosis, Regarding treatment.[facility] CenterComment on above:Result Comment: Electronically Signed By: MIGUEL ANGEL JASSO, Marlon Gil\Date and Time Signed: 07/04/25 07:58 GHV70-65-6557 Evaluation note* Pre-Procedure Note - Дмитрий Flores MD - 06/22/2025 7:30 AM EDT Interventional Radiology Preprocedure Note Indication for procedure: The encounter diagnosis was Liver cell carcinoma. Patient with history ofcirrhosis and HCC. Previous ablation of a posterior right hepatic lobe lesion. New MRI shows no local recurrence. There is a new arterially enhancing lesion with portal venous washout and pseudocapsule in segment 6. This lesion is targeted for ablation. Relevant review of systems: NA Relevant Labs: Lab Results Component Value Date CREATININE 0.93 06/22/2025 EGFR 68 06/22/2025 INR 1.3 (H) 06/22/2025 PROTIME 14.3 (H) 06/22/2025 Planned Sedation/Anesthesia: General anesthesia Airway assessment: Per anesthesia Directed physical examination: Awake and alert, oriented No acute distress Regular rate, rhythm Breathing non-labored Mallampati: Per anesthesia ASA Score: ASA 3 - Patient with moderate systemic disease with functional limitations Benefits, risks and alternatives of procedure and planned sedation have been discussed with the patient and/or their premium service representative. All questions answered and they agree to proceed. [facility] Work Phone: 1(771) 222-246408-21-2025 Miscellaneous Notes* Post-Procedure Note - Дмитрий Flores MD - 06/22/2025 7:30 AM EDT Interventional Radiology Brief Postprocedure Note Attending: Дмитрий Flores MD Machine Tester: none Diagnosis: 1. Liver cell carcinoma CT guided RF ablation liver CT guided RF ablation liver Description of procedure: Ultrasound and CT guided microwave ablation of a 1.9 cm segment 6 HCC. Anesthesia: General Complications: None Estimated Blood Loss: minimal Medications (Filter: Administrations occurring from 0731 to 0859 on 06/22/25) As of 06/22/25 0859 lidocaine PF (Xylocaine) 10 mg/mL (1 %) injection (mL) Total volume: 7 mL Date/Time Rate/Dose/Volume Action 06/22/25 0829 7 mL Given bupivacaine PF (Marcaine) 0.5 % (5 mg/mL) injection (mL) Total volume: 10 mL Date/Time Rate/Dose/Volume Action 06/22/25 0840 10 mL Given No specimens collected See detailed result report with images in PACS. The patient tolerated the procedure well without incident or complication and is in stable condition. * Pre-Procedure Note - Дмитрий Flores MD - 06/22/2025 7:30 AM EDT Interventional Radiology Preprocedure Note Indication for procedure: The encounter diagnosis was Liver cell carcinoma. Patient with history ofcirrhosis and HCC. Previous ablation of a posterior right hepatic lobe lesion. New MRI shows no local recurrence. There is a new arterially enhancing lesion with portal venous washout and pseudocapsule in segment 6. This lesion is targeted for ablation. Relevant review of systems: NA Relevant Labs: Lab Results Component Value Date CREATININE 0.93 06/22/2025 EGFR 68 06/22/2025 INR 1.3 (H) 06/22/2025 PROTIME 14.3 (H) 06/22/2025 Planned Sedation/Anesthesia: General anesthesia Airway assessment: Per anesthesia Directed physical examination: Awake and alert, oriented No acute distress Regular rate, rhythm Breathing non-labored Mallampati: Per anesthesia ASA Score: ASA 3 - Patient with moderate systemic disease with functional limitations Benefits, risks and alternatives of procedure and planned sedation have been discussed with the patient and/or their premium service representative. All questions answered and they agree to proceed. documented in this [facility] Work Phone: 1(999) 478-992708-21-2025 Surgery Postoperative evaluation and management note* Post-Procedure Note - Дмитрий Flores MD - 06/22/2025 7:30 AM EDT Interventional Radiology Brief Postprocedure Note Attending: Дмитрий Flores MD Machine Tester: none Diagnosis: 1. Liver cell carcinoma CT guided RF ablation liver CT guided RF ablation liver Description of procedure: Ultrasound and CT guided microwave ablation of a 1.9 cm segment 6 HCC. Anesthesia: General Complications: None Estimated Blood Loss: minimal Medications (Filter: Administrations occurring from 0731 to 0859 on 06/22/25) As of 06/22/25 0859 lidocaine PF (Xylocaine) 10 mg/mL (1 %) injection (mL) Total volume: 7 mL Date/Time Rate/Dose/Volume Action 06/22/25 0829 7 mL Given bupivacaine PF (Marcaine) 0.5 % (5 mg/mL) injection (mL) Total volume: 10 mL Date/Time Rate/Dose/Volume Action 06/22/25 0840 10 mL Given No specimens collected See detailed result report with images in PACS. The patient tolerated the procedure well without incident or complication and is in stable condition. [facility] Work Phone: 1(298) 445-541708-14-2025 History of Present illness Narrative* Emely Pedersen, - 06/15/2025 8:40 AM EDT Images from the original note were not included. FAMILY MEDICINE NOTE Chief Complaint: Pre op clearance HPI: Patient presents today for a pre-surgical evaluation. Pt will be undergoing ablation on liver with [facility] on 06-22-2025. Patient has had surgery in the past. without any significant adverse effects of anesthesia. Pt denies hx of CVA, TIA, CA, CHF, DVT or PE. Pt has been diagnosed with DM and is not on insulin currently. Patient lives at home with son. Pt is able to perform all ADLs independently. Allergies: see list below Anticoagulants: currently is not on anticoagulants. Patient denies hx of clotting or bleeding disorders Pt currently denies chest pain or dyspnea. SUBJECTIVE: PROBLEM LIST SURGICAL/SOCIAL ALLERGIES: Patient Active Problem List Diagnosis Chronic obstructive pulmonary disease (HCC) Depression DM2 (diabetes mellitus, type 2) (HCC) Essential hypertension Fibromyalgia Hyperlipidemia, group D Hypogammaglobulinemia (HCC) Vitamin D deficiency Thoracic aortic aneurysm without rupture Primary localized osteoarthrosis of ankle and foot Multiple myeloma not having achieved remission (HCC) Morbid obesity (CMS-HCC) Hemorrhoids, complicated Familial hyperchylomicronemia GERD (gastroesophageal reflux disease) Immunodeficiency disorder (HCC) Constipation 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) (HCC) History of tobacco abuse Paroxysmal atrial fibrillation (HCC) Abnormal CXR (chest x-ray) Spontaneous bacterial peritonitis (HCC) Bleeding hemorrhoids Lymphopenia Thrombocytopenia Abnormal liver ultrasound Hepatocellular carcinoma (HCC) Liver lesion Past Surgical History: Procedure Laterality [...] Rash Moxifloxacin Hives, Rash and Unknown OBJECTIVE: 06/15/2025 8:47 AM 05/15/2025 10:02 AM 04/10/2025 9:54 AM Vitals BMI 34.01 kg/m2 35.25 kg/m2 34.01 kg/m2 BSA (m2) 1.97 m2 2 m2 1.97 m2 Systolic 118 112 118 Diastolic 78 60 72 Heart Rate 81 84 91 SpO2 98 % 98 % 98 % Temp 98 F 98.2 F 98.2 F Resp 20 20 20 Height (in) 5' 3 5' 3 5' 3 Weight (lb) 192 199 192 Visit Report Report Physical Exam Constitutional: Appearance: Normal [...] is no abdominal tenderness. There is no guarding. Musculoskeletal: General: Normal range of motion. Skin: General: Skin is warm. Neurological: General: No focal deficit present. Mental Status: She is alert. Mental status is at baseline. Psychiatric: Mood and Affect: Mood normal. Behavior: Behavior normal. ASSESSMENT AND PLAN: Assessment & Plan Preoperative clearance -Patient's mediations and medical history reviewed. -Functional status: good -Patient understands risks and potential complications of the surgical procedure, and was also encouraged to discuss these with the surgeon if more questions or concerns remain. -Ramos Score: 2.2% -Patient is deemed to be medically optimized and at LOW risk for surgery. -Patient was advised to refrain from use of NSAIDs starting 3 days prior to surgery. Patient was also advised to hold aspirin/Plavix at least 7 days prior to the procedure and hold metformin 2 days prior to the procedure. -Pt advised to refrain from smoking at least 48 hours prior to sx. -Pt also advised to hold any OTC natural or herbal medications (such as garlic, ginseng, Tununak'sWort, etc.) at least 7-10 days prior to surgery. -Pt advised to skip ozempic dose the week before the surgery -A copy of this progress note will be forwarded to [facility] today Patient's Medications New Prescriptions No medications on file Previous Medications ACYCLOVIR (ZOVIRAX) 400 MG TABLET Take 400 mg by mouth in the morning and 400 mg before bedtime. ALBUTEROL (2.5 MG/3ML) 0.083% NEBULIZER SOLUTION Take 3 mL (2.5 mg) by nebulization every 6 (six) hours if needed for wheezing ATORVASTATIN (LIPITOR) 40 MG TABLET Take 1 tablet (40 mg) by mouth Daily NSREAOY-IXHBJYOGFON-ECZBPLVUBK (BREZTRI AEROSPHERE) 160-9-4.8 MCG/ACT AEROSOL Inhale 2 puffs in themorning and 2 puffs before bedtime. CARVEDILOL (COREG) 12.5 MG TABLET Take 1 tablet (12.5 mg) by mouth in the morning and 1 tablet (12.5 mg) in the evening. Take with meals. CEFPODOXIME (VANTIN) 100 MG TABLET TAKE 1 TABLET BY MOUTH TWICE A DAY WITH MEAL/FOOD CETIRIZINE (ZYRTEC) 10 MG TABLET Take 1 [...] the morning and 2 sprays before bedtime. FOSFOMYCIN (MONUROL) 3 G PACKET MIX 1 [...] 4 TIMES PER DAY NEEDED FOR HEMORRHOIDS LANSOPRAZOLE (PREVACID) [address] CAPSULE Take 1 capsule (30 mg) by mouth Daily Do not crush or chew. MAGNESIUM OXIDE (MAG-OX) 400 (240 MG) MG [...] mouth in the morning. RESPIRATORY THERAPY SUPPLIES (NEBULIZER/TUBING/MOUTHPIECE) KIT 1 kit [...] Medications No medications on file Discontinued Medications No medications on file Follow up in about 3 months (around 09/15/2025) for chronic recheck. Emely Pedersen DO documented in this [facility]08-14-2025 Instructions* Patient Instructions* Emely Pedersen DO - 06/15/2025 8:40 AM EDT -Refrain from use of NSAIDs starting 3 days prior to surgery. Hold aspirin/Plavix at least 7 days prior to the procedure and Hold metformin 2 days prior to the procedure. -Refrain from smoking at least 48 hours prior to sx. -Pt also advised to hold any OTC natural or herbal medications (such as garlic, ginseng, Tununak'sWort, etc.) at least 7-10 days prior to surgery. -Skip ozempic dose the week before the surgery documented in this [facility]08-11-2025 Hospital Discharge instructions Patient Education 06/12/2025 10:52:35 Cystoscopy Cystoscopy Cystoscopy is a procedure that is used to help diagnose and sometimes treat conditions that affect the lower urinary tract. The lower urinary tract includes the bladder and the urethra. The urethra is the tube that drains urine from the bladder. Cystoscopy is done using a thin, tube-shaped instrument with a light and camera at the end (cystoscope). The cystoscope may be hard or flexible, depending on the goal of the procedure. The cystoscope is inserted through the urethra, into the bladder. Cystoscopy may be recommended if you have: Urinary tract infections that keep coming back. Blood in the urine (hematuria). An inability to control when you urinate (urinary incontinence) or an overactive bladder. Unusual cells found in a urine sample. A blockage in the urethra, such as a urinary stone. Painful urination. An abnormality in the bladder found during an intravenous pyelogram (IVP) or CT scan. Cystoscopy may also be done to remove a sample of tissue to be examined under a microscope (biopsy). Tell a health care provider about: Any allergies you have. All medicines you are taking, including vitamins, herbs, eye drops, creams, and wlxh-mnt-ctdyigc medicines. Any problems you or family members have had with anesthetic medicines. Any blood disorders you have. Any surgeries you have had. Any medical conditions you have. Whether you are or may be . What are the risks? Generally, this is a safe procedure. However, problems may occur, including: Infection. Bleeding. Allergic reactions to medicines. Damage to other structures or organs. What happens before the procedure? Medicines Ask your health care provider about: Changing or stopping your regular medicines. This is especially important if you are taking diabetes medicines or blood thinners. Taking medicines such as aspirin and ibuprofen. These medicines can thin your blood. Do not take these medicines unless your health care provider tells you to take them. Taking ktff-iox-oxcxrpu medicines, vitamins, herbs, and supplements. Tests You may have an exam or testing, such as: X-rays of the bladder, urethra, or kidneys. CT scan of the abdomen or pelvis. Urine tests to check for signs of infection. General instructions Follow instructions from your health care provider about eating or drinking restrictions. Ask your health care provider what steps will be taken to help prevent infection. These steps may include: ?Washing skin with a germ-killing soap. ?Taking antibiotic medicine. Plan to have a responsible adult take you home from the hospital or clinic. What happens during the procedure? You will be given one or more of the following: ?A medicine to help you relax (sedative). ?A medicine to numb the area (local anesthetic). The area around the opening of your urethra will be cleaned. The cystoscope will be passed through your urethra into your bladder. Germ-free (sterile) fluid will flow through the cystoscope to fill your bladder. The fluid will stretch your bladder so that your health care provider can clearly examine your bladder diaz. Your doctor will look at the urethra and bladder. Your doctor may take a biopsy or remove stones. The cystoscope will be removed, and your bladder will be emptied. The procedure may vary among health care providers and hospitals. What can I expect after the procedure? After the procedure, it is common to have: Some soreness or pain in your abdomen and urethra. Urinary symptoms. These include: ?Mild pain or burning when you urinate. Pain should stop within a few minutes after you urinate. This may last for up to 1 week. ?A small amount of blood in your urine for several days. ?Feeling like you need to urinate but producing only a small amount of urine. Follow these instructions at home: Medicines Take ajya-rxb-zxrvgxy and prescription medicines only as told by your health care provider. If you were prescribed an antibiotic medicine, take it as told by your health care provider. Do notstop taking the antibiotic even if you start to feel better. General instructions Return to your normal activities as told by your health care provider. Ask your health care provider what activities are safe for you. If you were given a sedative during the procedure, it can affect you for several hours. Do not drive or operate machinery until your health care provider says that it is safe. Watch for any blood in your urine. If the amount of blood in your urine increases, call your healthcare provider. Follow instructions from your health care provider about eating or drinking restrictions. If a tissue sample was removed for testing (biopsy) during your procedure, it is up to you to get your test results. Ask your health care provider, or the department that is doing the test, when yourresults will be ready. Drink enough fluid to keep your urine pale yellow. Keep all follow-up visits. This is important. Contact a health care provider if: You have pain that gets worse or does not get better with medicine, especially pain when you urinate. You have trouble urinating. You have more blood in your urine. Get help right away if: You have blood clots in your urine. You have abdominal pain. You have a fever or chills. You are unable to urinate. Summary Cystoscopy is a procedure that is used to help diagnose and sometimes treat conditions that affect the lower urinary tract. Cystoscopy is done using a thin, tube-shaped instrument with a light and camera at the end. After the procedure, it is common to have some soreness or pain in your abdomen and urethra. Watch for any blood in your urine. If the amount of blood in your urine increases, call your healthcare provider. If you were prescribed an antibiotic medicine, take it as told by your health care provider. Do notstop taking the antibiotic even if you start to feel better. This information is not intended to replace advice given to you by your health care provider. Make sure you discuss any questions you have with your health care provider. Document Revised: 07/02/2022 Document Reviewed: 05/31/2021 [employer] Patient Education 2023 [employer]. 06/12/2025 10:52:32 Hematuria, Adult Hematuria, Adult Hematuria is blood in the urine. Blood may be visible in the urine, or it may be identified with a test. This condition can be caused by infections of the bladder, urethra, kidney, or prostate. Otherpossible causes include: Kidney stones. Cancer of the urinary tract. Too much calcium in the urine. Conditions that are passed from parent to child (inherited conditions). Exercise that requires a lot of energy. Infections can usually be treated with medicine, and a kidney stone usually will pass through your urine. If neither of these is the cause of your hematuria, more tests may be needed to identify the cause of your symptoms. It is very important to tell your health care provider about any blood in your urine, even if it ispainless or the blood stops without treatment. Blood in the urine, when it happens and then stops and then happens again, can be a symptom of a very serious condition, including cancer. There is no pain in the initial stages of many urinary cancers. Follow these instructions at home: Medicines Take rwvl-bpc-ckbqhvb and prescription medicines only as told by your health care provider. If you were prescribed an antibiotic medicine, take it as told by your health care provider. Do notstop taking the antibiotic even if you start to feel better. Eating and drinking Drink enough fluid to keep your urine pale yellow. It is recommended that you drink 3 4 quarts (2.83.8 L) a day. If you have been diagnosed with an infection, drinking cranberry juice in addition tolarge amounts of water is recommended. Avoid caffeine, tea, and carbonated beverages. These tend to irritate the bladder. Avoid alcohol because it may irritate the prostate (in males). General instructions If you have been diagnosed with a kidney stone, follow your health care provider's instructions about straining your urine to catch the stone. Empty your bladder often. Avoid holding urine for long periods of time. If you are female: ?After a bowel movement, wipe from front to back and use each piece of toilet paper only once. ?Empty your bladder before and after sex. Pay attention to any changes in your symptoms. Tell your health care provider about any changes or any new symptoms. It is up to you to get the results of any tests. Ask your health care provider, or the department that is doing the test, when your results will be ready. Keep all follow-up visits. This is important. Contact a health care provider if: You develop back pain. You have a fever or chills. You have nausea or vomiting. Your symptoms do not improve after 3 days. Your symptoms get worse. Get help right away if: You develop severe vomiting and are unable to take medicine without vomiting. You develop severe pain in your back or abdomen even though you are taking medicine. You pass a large amount of blood in your urine. You pass blood clots in your urine. You feel very weak or like you might faint. You faint. Summary Hematuria is blood in the urine. It has many possible causes. It is very important that you tell your health care provider about any blood in your urine, even ifit is painless or the blood stops without treatment. Take cmrw-lzr-wqjbqnl and prescription medicines only as told by your health care provider. Drink enough fluid to keep your urine pale yellow. This information is not intended to replace advice given to you by your health care provider. Make sure you discuss any questions you have with your health care provider. Document Revised: 06/19/2021 Document Reviewed: 06/19/2021 [employer] Patient Education 2023 [employer]. Follow Up Care 06/05/2025 09:27:58 With:MIGUEL ANGEL JASSO, Marlon Rangel, URL Address: [address] [place] [id number] When: Unknown [facility] 08-11-2025 NotePatient Education Urology Cystoscopy Cystoscopy is a procedure that is used to help diagnose and sometimes treat conditions that affect the lower urinary tract. The lower urinary tract includes the bladder and the urethra. The urethra is the tube that drains urine from the bladder. Cystoscopy is done using a thin, tube-shaped instrument with a light and camera at the end (cystoscope). The cystoscope may be hard or flexible, depending on the goal of the procedure. The cystoscope is inserted through the urethra, into the bladder. Cystoscopy may be recommended if you have: ??? Urinary tract infections that keep coming back. ??? Blood in the urine (hematuria). ??? An inability to control when you urinate (urinary incontinence) or an overactive bladder. ??? Unusual cells found in a urine sample. ??? A blockage in the urethra, such as a urinary stone. ??? Painful urination. ??? An abnormality in the bladder found during an intravenous pyelogram (IVP) or CT scan. Cystoscopy may also be done to remove a sample of tissue to be examined under a microscope (biopsy). Tell a health care provider about: ??? Any allergies you have. ??? All medicines you are taking, including vitamins, herbs, eye drops, creams, and abbs-zci-pdfpqdh medicines. ??? Any problems you or family members have had with anesthetic medicines. ??? Any blood disorders you have. ??? Any surgeries you have had. ??? Any medical conditions you have. ??? Whether you are or may be . What are the risks? Generally, this is a safe procedure. However, problems may occur, including: ??? Infection. ??? Bleeding. ??? Allergic reactions to medicines. ??? Damage to other structures or organs. What happens before the procedure? Medicines Ask your health care provider about: ??? Changing or stopping your regular medicines. This is especially important if you are taking diabetes medicines or blood thinners. ??? Taking medicines such as aspirin and ibuprofen. These medicines can thin your blood. Do not take these medicines unless your health care provider tells you to take them. ??? Taking djgn-qjl-hzhpxpr medicines, vitamins, herbs, and supplements. Tests You may have an exam or testing, such as: ??? X-rays of the bladder, urethra, or kidneys. ??? CT scan of the abdomen or pelvis. ??? Urine tests to check for signs of infection. General instructions ??? Follow instructions from your health care provider about eating or drinking restrictions. ??? Ask your health care provider what steps will be taken to help prevent infection. These steps may include: ? Washing skin with a germ-killing soap. ? Taking antibiotic medicine. ??? Plan to have a responsible adult take you home from the hospital or clinic. What happens during the procedure? You will be given one or more of the following: ? A medicine to help you relax (sedative). ? A medicine to numb the area (local anesthetic). ??? The area around the opening of your urethra will be cleaned. ??? The cystoscope will be passed through your urethra into your bladder. ??? Germ-free (sterile) fluid will flow through the cystoscope to fill your bladder. The fluid willstretch your bladder so that your health care provider can clearly examine your bladder diaz. ??? Your doctor will look at the urethra and bladder. Your doctor may take a biopsy or remove stones. ??? The cystoscope will be removed, and your bladder will be emptied. The procedure may vary among health care providers and hospitals. What can I expect after the procedure? After the procedure, it is common to have: ??? Some soreness or pain in your abdomen and urethra. ??? Urinary symptoms. These include: ? Mild pain or burning when you urinate. Pain should stop within a few minutes after you urinate. This may last for up to 1 week. ? A small amount of blood in your urine for several days. ? Feeling like you need to urinate but producing only a small amount of urine. Follow these instructions at home: Medicines ??? Take hgzu-yud-iezvkww and prescription medicines only as told by your health care provider. ??? If you were prescribed an antibiotic medicine, take it as told by your health care provider. Donot stop taking the antibiotic even if you start to feel better. General instructions ??? Return to your normal activities as told by your health care provider. Ask your health care provider what activities are safe for you. ??? If you were given a sedative during the procedure, it can affect you for several hours. Do not drive or operate machinery until your health care provider says that it is safe. ??? Watch for any blood in your urine. If the amount of blood in your urine increases, call your health care provider. ??? Follow instructions from your health care provider about eating or drinking restrictions. ??? If a tissue sample was removed for testing (biopsy) during your (more content not included)...[facility]07-28-2025 Evaluation note* Diagnosis Onset Date Resolution Status Admit Date Hepatocellular carcinoma acuteJuly 2024 1:58pm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)chronicJuly 2024 1:58pmCancer associated painacuteAugust 2024 8:12amHepatocellular carcinomaacuteAugust 2024 8:12amMultiple myelomaacuteAugust 2024 8:12amNauseaacuteAugust 2024 8:12amBilateral leg painacuteAugust 2024 9:29amHemorrhoids, complicatedacuteAugust 2024 9:29amHepatocellular carcinomaacuteAugust 2024 9:29amIron deficiency anemiaacuteAugust 2024 9:29amBone marrow hypocellularitychronicAugust 2024 9:29amCancer-related painchronicAugust 2024 9:29amEncounter for antineoplastic immunotherapychronicAugust 2024 9:29amEncounter for coordination of complex carechronicAugust 2024 9:29am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chronicAugust 2024 9:29am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)chronicAugust 2024 9:29amMultiple myelomachronicAugust 2024 9:29amThrombocytopenia [...] multiple myelomachronicSeptember 2024 10:25am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)chronic July 27, 2025 10:25amMultiple myelomachronicSeptember [...] 7:59amIron deficiencychronicOctober 2024 7:59am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)chronicOctober 2024 7:59amMultiple myelomachronicOctober 2024 7:59amNeutropenia, unspecifiedchronicOctober 2024 7:59amObesitychronicOctober 2024 7:59am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chronicOctober 2024 7:59amFrontal sinusitisresolvedOctober 2024 7:59amDiabetes mellitusinactiveOct2024 7:59amFibromyalgia inactiveAugust 16, 2025 7: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 Can she reach out to her hematology Oncology doctor to get their viewpoint on this before I give full clearance for the surgery? [id number] Miscellaneous Notes* Telephone Encounter - Emely Pedersen DO - 05/19/2025 8:32 AM EDT Can you please reach out to patient and let her know that her labs, EKG and chest x-ray came back everything was normal except her blood count was lower than usual? Can she reach out to her hematology Oncology doctor to get their viewpoint on this before I give full clearance for the surgery? documented in this encounterLiberty [id number] Evaluation note* Diagnosis Onset Date Resolution Status Admit Date Cancer associated pain acuteJuly 2024 7:54amHepatocellular carcinomaacuteJuly 2024 7:54am Multiple myelomaacuteJuly 2024 7:54amHepatocellular carcinomaacuteJuly 2024 1:58pm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)chronicJuly 2024 1:58pmCancer associated painacuteAugust 14th, 2025 8:12amHepatocellular carcinomaacuteAugust 2024 8:12amMultiple myelomaacuteAugust 2024 8:12amNauseaacuteAugust 2024 8:12amBilateral leg painacuteAugust 2024 9:29amHemorrhoids, complicatedacuteAugust 2024 9:29amHepatocellular carcinomaacuteAugust 2024 9:29amIron deficiency anemiaacuteAugust 2024 9:29amBone marrow hypocellularitychronicAugust 2024 9:29amCancer-related painchronicAugust 2024 9:29amEncounter for antineoplastic immunotherapychronicAugust 2024 9:29amEncounter for coordination of complex carechronicAugust 2024 9:29am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chronicAugust 2024 9:29am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)chronicAugust 2024 9:29amMultiple myelomachronicAugust 2024 9:29am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 chronicAugust 2024 9:29amAcute right hip painacuteSeptember 2024 9:14amHematuriaacuteSeptember 2024 9:14amAcute thoracic back painchronic July 19, 2025 9:14amBone marrow hypocellularitychronicSeptember 2024 9:14amCancer-related painchronicSeptember 2024 9:14amChemotherapy- induced neutropeniachronicSeptember 2024 9:14amChronic copper deficiency chronicSeptember 2024 9:14amDegenerative cervical spinal stenosischronic July 19, 2025 9:14amEncounter for antineoplastic immunotherapychronic July 19, 2025 9:14amEncounter for chemotherapy managementchronicSeptember 2024 9:14amEncounter for coordination of complex carechronicSeptember 2024 9:14amHistory of 2019 novel coronavirus disease (COVID-19)chronic July 19, 2025 9:14am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chronic July 19, 2025 9:14amIron deficiencychronicSeptember 2024 9:14am 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)chronicSeptember 2024 9:14amMultiple myelomachronicSeptember 2024 9:14amNeutropenia, unspecifiedchronicSeptember 2024 9:14amObesitychronicSeptember 2024 9:14am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chronicSeptember 2024 9:14am Frontal sinusitisresolvedSeptember 2024 9:14amDiabetes mellitusinactive July 19, 2025 9:14amFibromyalgiainactiveSeptember 2024 9:14am Smoldering multiple myeloma (SMM)inactiveSeptember 2024 9:14amCancer associated painacuteSeptember 2024 9:55amHepatocellular carcinomaacute July 19, 2025 9:55amNauseaacuteSeptember 2024 9:55am [facility] Work Phone: 1(964) 337-725707-17-2025 Evaluation note* Diagnosis Onset Date Resolution Status Admit Date Cancer associated pain acuteJuly 2024 7:54amHepatocellular carcinomaacuteJuly 2024 7:54am Multiple myelomaacuteJuly 2024 7:54amHepatocellular carcinomaacuteJuly 2024 1:58pm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)chronicJuly 2024 1:58pmCancer associated painacuteAugust 2024 8:12amHepatocellular carcinomaacuteAugust 2024 8:12amMultiple myelomaacuteAugust 2024 8:12amNauseaacuteAugust 2024 8:12amBilateral leg painacuteAugust 2024 9:29amHemorrhoids, complicatedacuteAugust 2024 9:29amHepatocellular carcinomaacuteAugust 2024 9:29amIron deficiency anemiaacuteAugust 2024 9:29amBone marrow hypocellularitychronicAugust 2024 9:29amCancer-related painchronicAugust 2024 9:29amEncounter for antineoplastic immunotherapychronicAugust 2024 9:29amEncounter for coordination of complex carechronicAugust 2024 9:29am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chronicAugust 2024 9:29am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)chronicAugust 2024 9:29amMultiple myelomachronicAugust 2024 9:29am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 chronicAugust 2024 9:29amCancer associated painacuteSeptember 2024 9:55amHepatocellular carcinomaacuteSeptember 2024 9:55amNauseaacute July 19, 2025 9:55amAcute right hip painacuteSeptember 2024 10:26am HematuriaacuteSeptember 2024 10:26amAcute thoracic back painchronic July 27, 2025 10:26amBone marrow hypocellularitychronicSeptember 2024 10:26amCancer-related painchronicSeptember 2024 10:26amChemotherapy- induced neutropeniachronicSeptember 2024 10:26amChronic copper deficiency chronicSeptember 2024 10:26amDegenerative cervical spinal stenosischronic July 27, 2025 10:26amEncounter for antineoplastic immunotherapychronic July 27, 2025 10:26amEncounter for chemotherapy managementchronic July 27, 2025 10:26amEncounter for coordination of complex carechronic July 27, 2025 10:26amHistory of 2019 novel coronavirus disease (COVID-19) chronicSeptember 2024 10:26am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 chronicSeptember 2024 10:26amIron deficiencychronicSeptember 2024 10:26am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)chronic July 27, 2025 10:26amMultiple myelomachronicSept2024 10:26am Neutropenia, unspecifiedchronicSept2024 10:26amObesitychronic July 27, 2025 10:26am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chronic July 27, 2025 10:26amFrontal sinusitisresolvedSept2024 10:26amDiabetes mellitusinactiveSept2024 10:26amFibromyalgiainactive July 27, 2025 10:26amSmoldering multiple myeloma (SMM)inactiveSept2024 10:26am [facility] Work Phone: 1(643) 100-188507-17-2025 Evaluation note* Diagnosis Onset Date Resolution Status Admit Date Cancer associated pain acuteJuly 2024 7:54amHepatocellular carcinomaacuteJuly 2024 7:54am Multiple myelomaacuteJuly 2024 7:54amHepatocellular carcinomaacuteJuly 2024 1:58pm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)chronicJuly 2024 1:58pmCancer associated painacuteAugust 2024 8:12amHepatocellular carcinomaacuteAugust 2024 8:12amMultiple myelomaacuteAugust 2024 8:12amNauseaacuteAugust 2024 8:12amBilateral leg painacuteAugust 2024 9:29amHemorrhoids, complicatedacuteAugust 2024 9:29amHepatocellular carcinomaacuteAugust 2024 9:29amIron deficiency anemiaacuteAugust 2024 9:29amBone marrow hypocellularitychronicAugust 2024 9:29amCancer-related painchronicAugust 2024 9:29amEncounter for antineoplastic immunotherapychronicAugust 2024 9:29amEncounter for coordination of complex carechronicAugust 2024 9:29am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chronicAugust 2024 9:29am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)chronicAugust 2024 9:29amMultiple myelomachronicAugust 2024 9:29amThrombocytopenia [...] multiple myelomachronicSeptember 2024 10:25am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)chronic July 27, 2025 10:25amMultiple myelomachronicSeptember 2024 10:25am 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chronicSeptember 2024 10:25amAcute right hip painacuteOctober 2024 8:17amHematuriaacuteOctober 2024 8:17amAcute thoracic back painchronicOctober 2024 8:17amBone marrow hypocellularitychronicOctober 2024 8:17amCancer-related painchronicOctober 2024 8:17amChemotherapy-induced neutropeniachronicOctober 2024 8:17am Chronic copper deficiencychronicOctober 2024 8:17amDegenerative cervical spinal stenosischronicOctober 2024 8:17amEncounter for antineoplastic immunotherapychronicOctober 2024 8:17amEncounter for chemotherapy managementchronicOctober 2024 8:17amEncounter for coordination of complex carechronicOctober 2024 8:17amHistory of 2019 novel coronavirus disease (COVID-19)chronicOctober 2024 8:17am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chronicOctober 2024 8:17amIron deficiencychronicOctober 2024 8:17am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)chronic August 09, 2025 8:17amMultiple myelomachronicOctober 2024 8:17am Neutropenia, unspecifiedchronicOctober 2024 8:17amObesitychronicOctober 2024 8:17am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chronicOctober 2024 8:17amFrontal sinusitisresolvedOctober 2024 8:17amDiabetes mellitusinactive August 09, 2025 8:17amFibromyalgiainactiveOctober 2024 8:17amSmoldering multiple myeloma (SMM)inactiveOctober 2024 8:17am [facility] Work Phone: 1(599) 553-996507-14-2025 History of Present illness Narrative* Emely Pedersen, DO - 05/15/2025 10:00 AM EDT Images from the original note were not included. FAMILY MEDICINE NOTE Chief Complaint: Presurgery consult HPI: Patient presents today for a pre-surgical evaluation. Pt will be undergoing liver ablation with on June 01. Patient has had surgery in the past. without any significant adverse effects of anesthesia. Pt denies hx of CVA, TIA, CA, CHF, DVT or PE. Pt has been diagnosed with DM and is not on insulin currently. Is on Ozempic. Patient lives at home with son. Pt is able to perform all ADLs independently. Allergies: see list Anticoagulants: currently is not on anticoagulants. Patient denies hx of clotting or bleeding disorders. Pt currently denies chest pain or dyspnea. Skin Lesion on Arm Recent skin lesion on arm after trauma, initially small but began bleeding and worsened after removal of a bandage, resulting in loss of skin and significant pain and redness. Treated at home with sterile pads and topical antibiotic. Lesion was deep red, sore, and tender, but redness and pain have improved. No fever or chills reported. Skin remains fragile and prone to bruising and breakdown withminor trauma. SUBJECTIVE: PROBLEM LIST SURGICAL/SOCIAL ALLERGIES: Patient Active Problem List Diagnosis Chronic obstructive pulmonary disease (HCC) Depression DM2 (diabetes mellitus, type 2) (HCC) Essential hypertension Fibromyalgia Hyperlipidemia, group D Hypogammaglobulinemia (HCC) Vitamin D deficiency Thoracic aortic aneurysm without rupture Primary localized osteoarthrosis of ankle and foot Multiple myeloma not having achieved remission (HCC) Morbid obesity (CMS-HCC) Hemorrhoids, complicated Familial hyperchylomicronemia GERD (gastroesophageal reflux disease) Immunodeficiency disorder (HCC) Constipation 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) (HCC) History of tobacco abuse Paroxysmal atrial fibrillation (HCC) Abnormal CXR (chest x-ray) Spontaneous bacterial peritonitis (HCC) Bleeding hemorrhoids Lymphopenia Thrombocytopenia Abnormal liver ultrasound Hepatocellular carcinoma (HCC) Liver lesion Past Surgical History: Procedure Laterality [...] Rash Moxifloxacin Hives, Rash and Unknown OBJECTIVE: 05/15/2025 10:02 AM 04/10/2025 9:54 AM 03/29/2025 3:40 PM Vitals BMI 35.25 kg/m2 34.01 kg/m2 33.3 kg/m2 BSA (m2) 2 m2 1.97 m2 1.95 m2 Systolic 112 118 128 Diastolic 60 72 72 Heart Rate 84 91 89 SpO2 98 % 98 % 94 % Temp 98.2 F 98.2 F 98.1 F Resp 20 20 20 Height (in) 5' 3 5' 3 5' 3 Weight (lb) 199 192 188 Visit Report Report Report Physical Exam Constitutional: Appearance: [...] is no abdominal tenderness. There is no guarding. Musculoskeletal: General: Normal range of motion. Skin: General: Skin is warm. Findings: Erythema and wound present. Comments: Laceration with scab in marked area, pt had pen marking previous area of erythema and today erythema is less than the marked area, no drainage Neurological: General: No focal deficit present. Mental Status: She is alert. Mental status is at baseline. Psychiatric: Mood and Affect: Mood normal. Behavior: Behavior normal. ASSESSMENT AND PLAN: Assessment & Plan Preoperative clearance -Patient's mediations and medical history reviewed. -Functional status: Independent -Patient understands risks and potential complications of the surgical procedure, and was also encouraged to discuss these with the surgeon if more questions or concerns remain. -Ramos Score: approximately 0.3% -Patient is deemed to be medically optimized and at LOW risk for surgery. -Patient was advised to refrain from use of NSAIDs starting 3 days prior to surgery. Patient was also advised to hold aspirin/Plavix at least 7 days prior to the procedure and hold metformin 2 days prior to the procedure. Advised to reach out to surgeon's office on when they would like her to hold ozempic, I recommended likely skipping her doses on the and but they may only require the 28th dose to be skipped -Pt also advised to hold any OTC natural or herbal medications (such as garlic, ginseng, Melissa'sWort, etc.) at least 7-10 days prior to surgery. -A copy of this progress note will be forwarded to Dr. Aguila office by end of week when results are received for CXR, EKG and labwork that was ordered per pre-op paperwork request (see media) Arm wound, left, initial encounter Erythema is improving. No abx at this point. Continue to monitor closely and advise us of changes or worsening of symptoms and then could consider abx trial Patient's Medications New Prescriptions No medications on file Previous Medications ACYCLOVIR (ZOVIRAX) 400 MG TABLET [...] BY MOUTH EVERY DAY FOR 90 DAYS [id number] (BREZTRI AEROSPHERE) 160-9-4.8 MCG/ACT AEROSOL Inhale 2 [...] 4 TIMES PER DAY NEEDED FOR HEMORRHOIDS LANSOPRAZOLE (PREVACID) [address] CAPSULE Take 1 capsule (30 mg) by mouth Daily Do not crush or chew. MAGNESIUM OXIDE (MAG-OX) 400 (240 MG) MG [...] 10 mEq by mouth in the morning. SEMAGLUTIDE,0.25 OR 0.5MG/DOS, (OZEMPIC, 0.25 OR 0.5 [...] Medications No medications on file Discontinued Medications AZITHROMYCIN (ZITHROMAX Z-EMILIANO) 250 MG TABLET Take as directed MAGNESIUM OXIDE (MAG-OX) 400 MG TABLET Take 1 tablet by mouth Daily Follow up in about 6 weeks (around 06/26/2025) for DM f/u. Emely Pedersen DO documented in this encounterLiberty [id number] Telephone encounter Note* Telephone Encounter - Tesha Epps - 04/26/2025 11:19 AM EDT Called and spoke with patient 04/26/25 at 1117AM Patient ECHO has been scheduled for the same day as visit with Dr. Mendez on 08/17/25 Patient is aware [facility]06-25-2025 Miscellaneous Notes* Telephone Encounter - Tesha Epps - 04/26/2025 11:19 AM EDT Called and spoke with patient 04/26/25 at 1117AM Patient ECHO has been scheduled for the same day as visit with Dr. Mendez on 08/17/25 Patient is aware * Telephone Encounter - Blair Masters - 04/24/2025 11:01 AM EDT Mojgan is calling Juan J Mendez MD today Patient did not know she had an appt today. Patient was rescheduled for the next opening but will need a new order for ECHO as it will before the nextopening. Please advise and call the patient back once ECHO has been placed. Orders Patient has been identified by name and birthdate. Duration of symptoms: N/A Person calling: self Call patient at: at home [phone] (home) [phone] (cell) Was an appointment scheduled: No Closing statement: Results or non-symptom based questions: Thank you for calling [facility], your call will be returned within the next business day. Blair Masters [facility] Telephone encounter Note * Telephone Encounter - Blair Masters - 04/24/2025 11:01 AM EDT Mojgan is calling Juan J Mendez MD today Patient did not know she had an appt today. Patient was rescheduled for the next opening but will need a new order for ECHO as it will before the nextopening. Please advise and call the patient back once ECHO has been placed. Orders Patient has been identified by name and birthdate. Duration of symptoms: N/A Person calling: self Call patient at: at home [phone] (home) [phone] (cell) Was an appointment scheduled: No Closing statement: Results or non-symptom based questions: Thank you for calling [facility], your call will be returned within the next business day. Blair Masters [facility]06-19-2025 Evaluation note* Diagnosis Onset Date Resolution Status Admit Date Cancer associated pain acuteJune 2024 8:27amHepatocellular carcinomaacuteJune 2024 8:27am Multiple myelomaacuteJune 2024 8:27amBilateral leg painacuteJune 2024 8:35amHemorrhoids, complicatedacuteJune 2024 8:35amHepatocellular carcinomaacuteJune 2024 8:35amIron deficiency anemiaacuteJune 2024 8:35amBone marrow hypocellularitychronicJune 2024 8:35amCancer-related painchronicJune 2024 8:35amEncounter for antineoplastic immunotherapy chronicJune 2024 8:35amEncounter for coordination of complex carechronic Kim 2024 8:35am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chronicJune 2024 8:35am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)chronicJune 2024 8:35amMultiple myelomachronicJune 2024 8:35am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chronicJune 2024 8:35am Cancer associated painacuteJuly 2024 7:54amHepatocellular carcinomaacute Divya 2024 7:54amMultiple myelomaacuteJuly 2024 7:54amHepatocellular carcinomaacuteJuly 2024 1:58pm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)chronicJuly 2024 1:58pmCancer associated painacuteAugust 2024 8:12amMultiple myelomaacuteAugust 14th, 2025 8:12am NauseaacuteAugust 2024 8:12amBilateral leg painacuteAugust 2024 9:29amHemorrhoids, complicatedacuteAugust 2024 9:29amHepatocellular carcinomaacuteAugust 2024 9:29amIron deficiency anemiaacuteAugust 2024 9:29amBone marrow hypocellularitychronicAugust 2024 9:29amCancer- related painchronicAugust 2024 9:29amEncounter for antineoplastic immunotherapychronicAugu2024 9:29amEncounter for coordination of complex carechronicAugust 2024 9:29am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chronicAugust 2024 9:29am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)chronicAugust 2024 9:29amMultiple myeloma chronicAugust 2024 9:29am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chronic June 15, 2025 9:29amAcute right hip painacuteAugust 2024 9:58am HematuriaacuteAugust 2024 9:58amAcute thoracic back painchronicAugust 2024 9:58amBone marrow hypocellularitychronicAugust 2024 9:58am Cancer-related painchronicAugust 2024 9:58amChemotherapy-induced neutropeniachronicAugu2024 9:58amChronic copper deficiencychronicAugust 2024 9:58amDegenerative cervical spinal stenosischronicAugust 2024 9:58amEncounter for antineoplastic immunotherapychronicAugu2024 9:58am Encounter for chemotherapy managementchronicA2024 9:58amEncounter for coordination of complex carechronicAugust 2024 9:58amHistory of 2019 novel coronavirus disease (COVID-19)chronicAugust 2024 9:58am 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chronicAugu2024 9:58amIron deficiencychronicAugust 2024 9:58am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)chronicAugust 2024 9:58amMultiple myeloma chronicAugust 2024 9:58amNeutropenia, unspecifiedchronicAugust 2024 9:58amObesitychronicAugust 2024 9:58am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chronicAugust 2024 9:58amFrontal sinusitisresolvedAugust 2024 9:58amDiabetes mellitusinactiveAugust 2024 9:58amFibromyalgia inactiveAugust 2024 9:58amSmoldering multiple myeloma (SMM)inactiveAugust 2024 9:58am [facility] Work Phone: 1(465) 548-133406-19-2025 Evaluation note* Diagnosis Onset Date Resolution Status Admit Date Cancer associated pain acuteJune 2024 8:27amHepatocellular carcinomaacuteJune 2024 8:27am Multiple myelomaacuteJune 2024 8:27amBilateral leg painacuteJune 2024 8:35amHemorrhoids, complicatedacuteJune 2024 8:35amHepatocellular carcinomaacuteJune 2024 8:35amIron deficiency anemiaacuteJune 2024 8:35amBone marrow hypocellularitychronicJune 2024 8:35amCancer-related painchronicJune 2024 8:35amEncounter for antineoplastic immunotherapy chronicJune 2024 8:35amEncounter for coordination of complex carechronic Kim 2024 8:35am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chronicJune 2024 8:35am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)chronicJune 2024 8:35amMultiple myelomachronicJune 2024 8:35am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chronicJune 2024 8:35am Cancer associated painacuteJuly 2024 7:54amHepatocellular carcinomaacute Divya 2024 7:54amMultiple myelomaacuteJuly 2024 7:54amHepatocellular carcinomaacuteJuly 2024 1:58pm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)chronicJuly 2024 1:58pmCancer associated painacuteAugust 2024 8:12amMultiple myelomaacuteAugust 2024 8:12am NauseaacuteAugust 2024 8:12amBilateral leg painacuteAugust 2024 9:29amHemorrhoids, complicatedacuteAugust 2024 9:29amHepatocellular carcinomaacuteAugust 2024 9:29amIron deficiency anemiaacuteAugust 2024 9:29amBone marrow hypocellularitychronicAugust 2024 9:29amCancer- related painchronicAugust 2024 9:29amEncounter for antineoplastic immunotherapychronicAugust 2024 9:29amEncounter for coordination of complex carechronicAugust 2024 9:29am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chronicAugust 2024 9:29am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)chronicAugust 2024 9:29amMultiple myeloma chronicAugust 2024 9:29am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chronic June 15, 2025 9:29amAcute right hip painacuteAugust 2024 10:00am HematuriaacuteAugust 2024 10:00amAcute thoracic back painchronicAugust 2024 10:00amBone marrow hypocellularitychronicAugust 2024 10:00am Cancer-related painchronicAugust 2024 10:00amChemotherapy-induced neutropeniachronicAugust 2024 10:00amChronic copper deficiencychronic June 15, 2025 10:00amDegenerative cervical spinal stenosischronicAugust 2024 10:00amEncounter for antineoplastic immunotherapychronicAugust 2024 10:00amEncounter for chemotherapy managementchronicAugust 2024 10:00amEncounter for coordination of complex carechronicAugu2024 10:00amHistory of 2019 novel coronavirus disease (COVID-19)chronicAugust 2024 10:00am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chronicAugu2024 10:00amIron deficiencychronicAugust 2024 10:00am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)chronicAugust 2024 10:00am Multiple myelomachronicAugust 2024 10:00amNeutropenia, unspecifiedchronic June 15, 2025 10:00amObesitychronicAugust 2024 10:00am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chronicAugu2024 10:00amFrontal sinusitisresolved June 15, 2025 10:00amDiabetes mellitusinactiveAugust 2024 10:00am FibromyalgiainactiveAugust 2024 10:00amSmoldering multiple myeloma (SMM) inactiveAugust 2024 10:00am [facility] Work Phone: 1(982) 732-427806-19-2025 Evaluation note* Diagnosis Onset Date Resolution Status Admit Date Cancer associated pain acuteJune 2024 8:27amHepatocellular carcinomaacuteJune 2024 8:27am Multiple myelomaacuteJune 2024 8:27amBilateral leg painacuteJune 2024 8:35amHemorrhoids, complicatedacuteJune 2024 8:35amHepatocellular carcinomaacuteJune 2024 8:35amIron deficiency anemiaacuteJune 2024 8:35amBone marrow hypocellularitychronicJune 2024 8:35amCancer-related painchronicJune 2024 8:35amEncounter for antineoplastic immunotherapy chronicJune 2024 8:35amEncounter for coordination of complex carechronic Kim 2024 8:35am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chronicJune 2024 8:35am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)chronicJune 2024 8:35amMultiple myelomachronicJune 2024 8:35am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chronicJune 2024 8:35am Cancer associated painacuteJuly 2024 7:54amHepatocellular carcinomaacute Divya 2024 7:54amMultiple myelomaacuteJuly 2024 7:54amHepatocellular carcinomaacuteJuly 2024 1:58pm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)chronicJuly 2024 1:58pmCancer associated painacuteAugust 2024 8:12amHepatocellular carcinomaacuteAugust 2024 8:12amMultiple myelomaacuteAugust 2024 8:12amNauseaacuteAugust 2024 8:12amBilateral leg painacuteAugust 2024 9:29amHemorrhoids, complicated acuteAugust 2024 9:29amHepatocellular carcinomaacuteAugust 2024 9:29amIron deficiency anemiaacuteAugust 2024 9:29amBone marrow hypocellularitychronicAugust 2024 9:29amCancer-related painchronicAugust 2024 9:29amEncounter for antineoplastic immunotherapychronicAugust 2024 9:29amEncounter for coordination of complex carechronicAugust 2024 9:29am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chronicAugust 2024 9:29am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)chronic George 2024 9:29amMultiple myelomachronicAugust 2024 9:29am 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chronicAugust 2024 9:29amAcute right hip painacuteSeptember 2024 9:14amHematuriaacuteSeptember 2024 9:14amAcute thoracic back painchronicSeptember 2024 9:14amBone marrow hypocellularitychronicSeptember 2024 9:14amCancer-related painchronic July 19, 2025 9:14amChemotherapy-induced neutropeniachronicSeptember 2024 9:14amChronic copper deficiencychronicSeptember 2024 9:14am Degenerative cervical spinal stenosischronicSeptember 2024 9:14amEncounter for antineoplastic immunotherapychronicSeptember 2024 9:14amEncounter for chemotherapy managementchronicSeptember 2024 9:14amEncounter for coordination of complex carechronicSeptember 2024 9:14amHistory of 2019 novel coronavirus disease (COVID-19)chronicSeptember 2024 9:14am 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chronicSeptember 2024 9:14am Iron deficiencychronicSeptember 2024 9:14am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)chronicSeptember 2024 9:14amMultiple myelomachronicSeptember 2024 9:14amNeutropenia, unspecifiedchronic July 19, 2025 9:14amObesitychronicSeptember 2024 9:14am 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chronicSeptember 2024 9:14amFrontal sinusitisresolvedSeptember 2024 9:14amDiabetes mellitusinactiveSeptember 2024 9:14amFibromyalgiainactiveSeptember 2024 9:14amSmoldering multiple myeloma (SMM)inactiveSeptember 2024 9:14amCancer associated pain acuteSeptember 2024 9:55amHepatocellular carcinomaacuteSeptember 2024 9:55amNauseaacuteSeptember 2024 9:55am [facility] Work Phone: 1(139) 860-797106-09-2025 History of Present illness Narrative* Emely Pedersen, - 04/10/2025 10:20 AM EDT Images from the original note were not included. FAMILY MEDICINE NOTE Chief Complaint: ER Follow up HPI: Chart Review: Flowsheet Row Patient Outreach from 04/03/2025 in [facility] with Sima Paul RN Hospital Information ED, Hospital or [facility] Facility Discharge? ED Patient has been contacted within 2 days of being seen in the ED Yes Diagnosis chest wall pain Discharge Date 04/02/25 Discharged To: Home Setting Discharge Hospital [facility] Engagement Admission Date 04/02/25 Medications Discharge medications reviewed and reconciled from hospital? Yes Is the patient having any side effects they believe may be caused by any medication additions or changes? No Does the patient have all medications ordered at discharge? Yes Prescription Comments Lidocaine Patch- not covered by insurance bought the 4% OTC Is the patient taking all medications as directed (includes completed medication regime)? Yes Appointments Does the patient have a primary care provider? Yes Nursing Interventions Verified appointment date/time/provider Does the patient have any upcoming specialty appointments? Yes Self Management Patient Teaching Does the patient have access to their discharge instructions? Yes Nursing Interventions Reviewed instructions with patient What is the patient's perception of their health status since discharge? Same Wrap Up Wrap Up Additional Comments pt had a fall at home, out of bed. Hit her chest wall area, went to ER for evaluation. CXR revealed no acute fx.Given prescription for Lidoderm patch. Interval History: Fall and Rib Injury Rolled out of bed and hit the floor, injuring ribs and leg on a metal hospital stand. Experienced significant pain in the ribs, but imaging showed no fractures or cracks. Pain management included iceapplication to reduce inflammation. Still having some left sided rib pain managed okay with liodcaine patch and ice. COPD Exacerbation Experiences occasional wheezing and breathing difficulties, particularly when the cough flares up. Uses a nebulizer machine every four hours during flare-ups. Oxygen saturation was previously noted to be 98%.Developed a cough, producing yellow and green sputum. The cough is more frequent in the evening or with activity. No recent use of steroids or antibiotics specifically for the cough, but has a history of using antibiotics for a urinary tract infection. Patient denies any other acute complaints or concerns at this time. SUBJECTIVE: Past Medical History SURGICAL/SOCIAL ALLERGIES: Past Medical History: Diagnosis Date Acid reflux Acute right-sided low back pain with right-sided sciatica Aneurysm of ascending aorta (CMS/HCC) Anxiety Appendicitis Arthritis Atherosclerosis of abdominal aorta (CMS/HCC) Chicken pox Cholelithiasis Cirrhosis (CMS/HCC) nonalcoholic COPD (chronic obstructive pulmonary disease) (CMS/HCC) COPD exacerbation CTS (carpal tunnel syndrome) Depression (CMS/HCC) Diabetes (CMS/HCC) Endometriosis Family history of cancer Family history of colon cancer Fibromyalgia Hematoma Hemorrhoids History of being hospitalized 04/2019 [facility] 4.1 CM, CIRRHOSIS OF THE LIVER History of smoking Hyperlipidemia (CMS/HCC) Hypertension (CMS/HCC) Leukopenia Moderate persistent asthma with exacerbation (CMS/HCC) Morbid obesity (CMS/HCC) Myeloma (CMS/HCC) with thrombocytopenia Neuropathy Osteoarthrosis Rectal bleeding Rectal fissure Rectal pain Thoracic aortic aneurysm (CMS/HCC) Thrombocytopenia (CMS/HCC) UTI (urinary tract infection) 12/2022 Visual loss w/ corrective lenses Past Surgical History: Procedure Laterality Date APPENDECTOMY [...] Rash Moxifloxacin Hives, Rash and Unknown OBJECTIVE: 04/10/2025 9:54 AM 03/29/2025 3:40 PM 03/13/2025 11:57 AM Vitals BMI 34.01 kg/m2 33.3 kg/m2 32.56 kg/m2 BSA (m2) 1.97 m2 1.95 m2 1.93 m2 Systolic 118 128 122 Diastolic 72 72 78 Heart Rate 91 89 83 SpO2 98 % 94 % 95 % Temp 98.2 F 98.1 F 97.8 F Resp 20 20 Height (in) 5' 3 5' 3 Weight (lb) 192 188 183.8 Visit Report Report Report Report Physical Exam Constitutional: Appearance: Normal appearance. HENT: Nose: Comments: Erythematous nasal mucosa b/l Mouth/Throat: Pharynx: Uvula midline. Posterior oropharyngeal erythema and postnasal drip present. Cardiovascular: Rate and Rhythm: Normal rate and regular rhythm. Heart sounds: No murmur heard. No friction rub. No gallop. Pulmonary: Breath sounds: Wheezing and rhonchi present. No rales. Chest: Chest wall: Tenderness present. Abdominal: General: Abdomen is flat. Bowel sounds are normal. There is no distension. Palpations: Abdomen is soft. There is no mass. Tenderness: There is no abdominal tenderness. There is no guarding. Musculoskeletal: General: Normal range of motion. Skin: General: Skin is warm. Neurological: General: No focal deficit present. Mental Status: She is alert. Mental status is at baseline. Psychiatric: Mood and Affect: Mood normal. Behavior: Behavior normal. ASSESSMENT AND PLAN: Assessment & Plan Contusion of rib on left side, subsequent encounter - Rib contusion from a fall, no fractures detected on ER XR. - Continue using ice to manage inflammation and pain. Use lidocaine patches as needed. Cough, unspecified type COPD with acute exacerbation ([facility]) - COPD exacerbation indicated by increased wheezing and productive cough. Negative in office COVID test. - Start antibiotics and steroids today and complete the course over the next 5 days. Use nebulizer every 4 hours during flare-ups. Monitor for worsening symptoms. - Risks and side effects: Monitor for severe dyspnea, fevers, chills, inability to eat or drink, orworsening chest pain. Seek emergency care if these occur. Orders: POCT COVID ANTIGEN azithromycin (Zithromax Z-Emiliano) 250 MG tablet; Take as directed predniSONE (Deltasone) 20 MG tablet; Take 1 tablet (20 mg) by mouth in the morning and 1 tablet (20mg) before bedtime. Do all this for 5 days. benzonatate (Tessalon) 200 MG capsule; Take 1 capsule (200 mg) by mouth 3 (three) times a day as needed for cough for up to 7 days Do not crush or chew. Patient's Medications New Prescriptions AZITHROMYCIN (ZITHROMAX Z-EMILIANO) 250 MG TABLET Take as directed BENZONATATE (TESSALON) 200 MG CAPSULE Take 1 capsule (200 mg) by mouth 3 (three) times a day as needed for cough for up to 7 days Do not crush or chew. PREDNISONE (DELTASONE) 20 MG TABLET Take 1 tablet (20 [...] BY MOUTH EVERY DAY FOR 90 DAYS [id number] (BREZTRI AEROSPHERE) 160-9-4.8 MCG/ACT AEROSOL Inhale 2 [...] 4 TIMES PER DAY NEEDED FOR HEMORRHOIDS LANSOPRAZOLE (PREVACID) [address] CAPSULE Take 1 capsule (30 mg) by mouth Daily Do not crush or chew. MAGNESIUM OXIDE (MAG-OX) 400 (240 MG) MG [...] Medications No medications on file Discontinued Medications NITROFURANTOIN, MACROCRYSTAL-MONOHYDRATE, (MACROBID) 100 MG CAPSULE Take 1 capsule (100 mg) by mouth in the morning and 1 capsule (100 mg) before bedtime. Do all this for 5 days. Follow up in about 6 weeks (around 05/22/2025) for chronic recheck. Emely Pedersen DO documented in this encounterLiberty [id number] History of Present illness Narrative* Emely Pedersen DO - 03/29/2025 3:20 PM EDTAssociated Problem(s): [...] Daily Do not crush or chew. * Emely Pedersen DO - 03/29/2025 3:20 PM EDT Images [...] disorder (CMS/HCC) Constipation 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) (CMS/HCC) BMI 30.0-30.9,adult Acute alteration [...] % 95 % 97 % Temp 98.1 F 97.8 F 97.7 F Resp 20 20 Height (in) 5' 3 [...] BY MOUTH EVERY DAY FOR 90 DAYS [id number] (BREZTRI AEROSPHERE) 160-9-4.8 MCG/ACT AEROSOL Inhale 2 [...] if symptoms worsen or fail to improve. Emely Pedersen DO documented in this [facility]05-15-2025 Evaluation note* Diagnosis Onset Date Resolution Status Admit Date Bilateral leg pain acuteMay 2024 9:18amHemorrhoids, complicatedacuteMay 2024 9:18am Hepatocellular carcinomaacuteMay 2024 9:18amIron deficiency anemiaacuteMay 2024 9:18amBone marrow hypocellularitychronicMay 2024 9:18amCancer- related painchronicMay 2024 9:18amEncounter for antineoplastic immunotherapychronicMay 2024 9:18amEncounter for coordination of complex carechronicMay 2024 9:18am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 chronicMay 2024 9:18am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)chronicMay 2024 9:18amMultiple myelomachronicMay 2024 9:18am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chronicMay 2024 9:18am Cancer associated painacuteJune 2024 8:27amHepatocellular carcinomaacute Kim 2024 8:27amMultiple myelomaacuteJune 2024 8:27amBilateral leg painacuteJune 2024 8:35amHemorrhoids, complicatedacuteJune 2024 8:35amHepatocellular carcinomaacuteJune 2024 8:35amIron deficiency anemia acuteJune 2024 8:35amBone marrow hypocellularitychronicJune 2024 8:35amCancer-related painchronicJune 2024 8:35amEncounter for antineoplastic immunotherapychronicJune 2024 8:35amEncounter for coordination of complex carechronicJune 2024 8:35am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chronicJune 2024 8:35am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)chronicJune 2024 8:35amMultiple myelomachronicJune 2024 8:35am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chronic Kim 2024 8:35amAcute right hip painacuteJuly 2024 9:46amHematuria acuteJuly 2024 9:46amAcute thoracic back painchronicJuly 2024 9:46am Bone marrow hypocellularitychronicJuly 2024 9:46amCancer-related pain chronicJuly 2024 9:46amChemotherapy-induced neutropeniachronicJuly 2024 9:46amChronic copper deficiencychronicJuly 2024 9:46amDegenerative cervical spinal stenosischronicJuly 2024 9:46amEncounter for antineoplastic immunotherapychronicJuly 2024 9:46amEncounter for chemotherapy managementchronicJuly 2024 9:46amEncounter for coordination of complex carechronicJuly 2024 9:46amHistory of 2019 novel coronavirus disease (COVID-19)chronicJuly 2024 9:46am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chronicJuly 2024 9:46amIron deficiencychronicJuly 2024 9:46am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) chronicJuly 2024 9:46amMultiple myelomachronicJuly 2024 9:46am Neutropenia, unspecifiedchronicJuly 2024 9:46amObesitychronicJuly 2024 9:46am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chronicJuly 2024 9:46am Frontal sinusitisresolvedJuly 2024 9:46amDiabetes mellitusinactiveJuly 2024 9:46amFibromyalgiainactiveJuly 2024 9:46amSmoldering multiple myeloma (SMM)inactiveJuly 2024 9:46am [facility] Work Phone: 1(917) 241-232405-15-2025 Evaluation note* Diagnosis Onset Date Resolution Status Admit Date Bilateral leg pain acuteMay 2024 9:18amHemorrhoids, complicatedacuteMay 2024 9:18am Hepatocellular carcinomaacuteMay 2024 9:18amIron deficiency anemiaacuteMay 2024 9:18amBone marrow hypocellularitychronicMay 2024 9:18amCancer- related painchronicMay 2024 9:18amEncounter for antineoplastic immunotherapychronicMay 2024 9:18amEncounter for coordination of complex carechronicMay 2024 9:18am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 chronicMay 2024 9:18am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)chronicMay 2024 9:18amMultiple myelomachronicMay 2024 9:18am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chronicMay 2024 9:18am Cancer associated painacuteJune 2024 8:27amHepatocellular carcinomaacute Kim 2024 8:27amMultiple myelomaacuteJune 2024 8:27amBilateral leg painacuteJune 2024 8:35amHemorrhoids, complicatedacuteJune 2024 8:35amHepatocellular carcinomaacuteJune 2024 8:35amIron deficiency anemia acuteJune 2024 8:35amBone marrow hypocellularitychronicJune 2024 8:35amCancer-related painchronicJune 2024 8:35amEncounter for antineoplastic immunotherapychronicJune 2024 8:35amEncounter for coordination of complex carechronicJune 2024 8:35am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chronicJune 2024 8:35am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)chronicJune 2024 8:35amMultiple myelomachronicJune 2024 8:35am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chronic April 20, 2025 8:35amCancer associated painacuteJuly 2024 7:54am Hepatocellular carcinomaacuteJuly 2024 7:54amAcute right hip painacuteJuly 2024 2:30pmHematuriaacuteJuly 2024 2:30pmAcute thoracic back pain chronicJuly 2024 2:30pmBone marrow hypocellularitychronicJuly 2024 2:30pmCancer-related painchronicJuly 2024 2:30pmChemotherapy-induced neutropeniachronicJuly 2024 2:30pmChronic copper deficiencychronicJuly 2024 2:30pmDegenerative cervical spinal stenosischronicJuly 2024 2:30pmEncounter for antineoplastic immunotherapychronicJuly 2024 2:30pm Encounter for chemotherapy managementchronicJuly 2024 2:30pmEncounter for coordination of complex carechronicJuly 2024 2:30pmHistory of 2019 novel coronavirus disease (COVID-19)chronicJuly 2024 2:30pm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chronicJuly 2024 2:30pmIron deficiencychronicJuly 2024 2:30pm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)chronicJuly 2024 2:30pmMultiple myelomachronicJuly 2024 2:30pmNeutropenia, unspecifiedchronicJuly 2024 2:30pmObesitychronic Divya 2024 2:30pm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chronicJuly 2024 2:30pmFrontal sinusitisresolvedJuly 2024 2:30pmDiabetes mellitus inactiveJuly 2024 2:30pmFibromyalgiainactiveJuly 2024 2:30pm Smoldering multiple myeloma (SMM)inactiveJuly 2024 2:30pm [facility] Work Phone: 1(643) 209-174705-15-2025 Evaluation note* Diagnosis Onset Date Resolution Status Admit Date Bilateral leg pain acuteMay 2024 9:18amHemorrhoids, complicatedacuteMay 2024 9:18am Hepatocellular carcinomaacuteMay 2024 9:18amIron deficiency anemiaacuteMay 2024 9:18amBone marrow hypocellularitychronicMay 2024 9:18amCancer- related painchronicMay 2024 9:18amEncounter for antineoplastic immunotherapychronicMay 2024 9:18amEncounter for coordination of complex carechronicMay 2024 9:18am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 chronicMay 2024 9:18am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)chronicMay 2024 9:18amMultiple myelomachronicMay 2024 9:18am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chronicMay 2024 9:18am Cancer associated painacuteJune 2024 8:27amHepatocellular carcinomaacute Kim 2024 8:27amMultiple myelomaacuteJune 2024 8:27amBilateral leg painacuteJune 2024 8:35amHemorrhoids, complicatedacuteJune 2024 8:35amHepatocellular carcinomaacuteJune 2024 8:35amIron deficiency anemia acuteJune 2024 8:35amBone marrow hypocellularitychronicJune 2024 8:35amCancer-related painchronicJune 2024 8:35amEncounter for antineoplastic immunotherapychronicJune 2024 8:35amEncounter for coordination of complex carechronicJune 2024 8:35am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chronicJune 2024 8:35am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)chronicJune 2024 8:35amMultiple myelomachronicJune 2024 8:35am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chronic April 20, 2025 8:35amCancer associated painacuteJuly 2024 7:54am Hepatocellular carcinomaacuteJuly 2024 7:54amMultiple myelomaacuteJuly 2024 7:54amAcute right hip painacuteJuly 2024 2:30pmHematuriaacute May 18, 2025 2:30pmAcute thoracic back painchronicJuly 2024 2:30pmBone marrow hypocellularitychronicJuly 2024 2:30pmCancer-related painchronic May 18, 2025 2:30pmChemotherapy-induced neutropeniachronicJuly 2024 2:30pmChronic copper deficiencychronicJuly 2024 2:30pmDegenerative cervical spinal stenosischronicJuly 2024 2:30pmEncounter for antineoplastic immunotherapychronicJuly 2024 2:30pmEncounter for chemotherapy managementchronicJuly 2024 2:30pmEncounter for coordination of complex carechronicJuly 2024 2:30pmHistory of 2019 novel coronavirus disease (COVID-19)chronicJuly 2024 2:30pm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chronicJuly 2024 2:30pmIron deficiencychronicJuly 2024 2:30pm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) chronicJuly 2024 2:30pmMultiple myelomachronicJuly 2024 2:30pm Neutropenia, unspecifiedchronicJuly 2024 2:30pmObesitychronicJuly 2024 2:30pm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chronicJuly 2024 2:30pm Frontal sinusitisresolvedJuly 2024 2:30pmDiabetes mellitusinactiveJuly 2024 2:30pmFibromyalgiainactiveJuly 2024 2:30pmSmoldering multiple myeloma (SMM)inactiveJuly 2024 2:30pm [facility] Work Phone: 1(459) 936-347005-15-2025 Evaluation note* Diagnosis Onset Date Resolution Status Admit Date Bilateral leg pain acuteMay 2024 9:18amHemorrhoids, complicatedacuteMay 2024 9:18am Hepatocellular carcinomaacuteMay 2024 9:18amIron deficiency anemiaacuteMay 2024 9:18amBone marrow hypocellularitychronicMay 2024 9:18amCancer- related painchronicMay 2024 9:18amEncounter for antineoplastic immunotherapychronicMay 2024 9:18amEncounter for coordination of complex carechronicMay 2024 9:18am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 chronicMay 2024 9:18am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)chronicMay 2024 9:18amMultiple myelomachronicMay 2024 9:18am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chronicMay 2024 9:18am Cancer associated painacuteJune 2024 8:27amHepatocellular carcinomaacute Kim 2024 8:27amMultiple myelomaacuteJune 2024 8:27amBilateral leg painacuteJune 2024 8:35amHemorrhoids, complicatedacuteJune 2024 8:35amHepatocellular carcinomaacuteJune 2024 8:35amIron deficiency anemia acuteJune 2024 8:35amBone marrow hypocellularitychronicJune 2024 8:35amCancer-related painchronicJune 2024 8:35amEncounter for antineoplastic immunotherapychronicJune 2024 8:35amEncounter for coordination of complex carechronicJune 2024 8:35am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chronicJune 2024 8:35am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)chronicJune 2024 8:35amMultiple myelomachronicJune 2024 8:35am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chronic Kim 2024 8:35amCancer associated painacuteJuly 2024 7:54am Hepatocellular carcinomaacuteJuly 2024 7:54amMultiple myelomaacuteJuly 2024 7:54amHepatocellular carcinomaacuteJuly 2024 1:58pm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)chronicJuly 2024 1:58pmAcute right hip painacuteJuly 2024 9:02amHematuriaacuteJuly 2024 9:02amAcute thoracic back painchronicJuly 2024 9:02amBone marrow hypocellularitychronicJuly 2024 9:02amCancer-related painchronicJuly 2024 9:02amChemotherapy-induced neutropeniachronicJuly 2024 9:02amChronic copper deficiencychronicJuly 2024 9:02amDegenerative cervical spinal stenosischronicJuly 2024 9:02amEncounter for antineoplastic immunotherapy chronicJuly 2024 9:02amEncounter for chemotherapy managementchronicJuly 2024 9:02amEncounter for coordination of complex carechronicJuly 2024 9:02amHistory of 2019 novel coronavirus disease (COVID-19)chronicJuly 2024 9:02am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chronicJuly 2024 9:02amIron deficiencychronicJuly 2024 9:02am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)chronicJuly 2024 9:02amMultiple myeloma chronicJuly 2024 9:02amNeutropenia, unspecifiedchronicJuly 2024 9:02amObesitychronicJuly 2024 9:02am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 chronicJuly 2024 9:02amFrontal sinusitisresolvedJuly 2024 9:02am Diabetes mellitusinactiveJuly 2024 9:02amFibromyalgiainactiveJuly 2024 9:02amSmoldering multiple myeloma (SMM)inactiveJuly 2024 9:02am [facility] Work Phone: 1(999) 777-107305-13-2025 Telephone encounter Note* Telephone Encounter - Joaquina Greer NP - 03/14/2025 11:11 AM EDT Urine pos for Klebsiella bacteria. Finish macrobid. Check on pt and follow up with PCP. [facility] [id number] Miscellaneous Notes* Telephone Encounter - Joaquina Greer NP - 03/14/2025 11:11 AM EDT Urine pos for Klebsiella bacteria. Finish macrobid. Check on pt and follow up with PCP. documented in this encounterLiberty [id number] History of Present illness Narrative* Joaquina Greer NP - 03/13/2025 11:50 AM EDT Images from the original note were not included. [address] , [address] [facility], [address] P: [phone] F: [phone] HPI Historian of [facility]: patient Mojgan Pérez is a 69 y.o. female who presents today to the Urgent Care with the following complaints and denials which have been present for 2 day(s) C/O Denies Symptom Comments [x] [] Dysuria [] [x] hematuria [x] [] Urinary frequency [] [x] Urinary incontinence [x] [] Urinary urgency [] [x] Genital itching [] [x] Genital discharge [x] [] Back pain [] [x] Abd pain Additional Comments: pt has not taken any OTC medications IH Testing: An In-House UA has been obtained ROS A complete system ROS was performed and negative aside from the pertinent positives noted in the HPI and PE. PHYSICAL EXAM Examination General Examination: General Examination: alert, oriented, normal affect, well-appearing, in no acute distress, well developed, well nourished Head: normocephalic, atraumatic Heart: S1, S2 normal, regular rate and rhythm, no S3, S4, no murmurs, rubs, gallops. Lungs: clear anteriorly and posteriorly, clear to auscultation bilaterally, good air movement, no wheezes, rales, rhonchi Chest: normal shape and expansion, normal anteroposterior (AP) diameter Abdomen: soft, nondistended, abd nontender. No CVS tenderness bilat, no guarding or rigidity, no hepatosplenomegaly, no masses palpable, no organomegaly, no rebound tenderness Extremities: no edema, no cyanosis Psych: alert, oriented, cooperative with exam TREATMENT PLAN 1. Acute cystitis with hematuria (Primary) UA obtained; send for culture. Due to drug allergies, will start pt on macrobid- see rx. Discussed informing oncology of new medication use. Immediate eval if new, worsening sx otherwise follow up andfurther recommendations pending cx results. 2. Dysuria See 1 - URINALYSIS ANALYZER TEST - URINARY TRACT INFECTION (HTRX) - nitrofurantoin, macrocrystal-monohydrate, (Macrobid) 100 MG capsule; Take 1 capsule (100 mg) by mouth in the morning and 1 capsule (100 mg) in the evening. Take with meals. Do all this for 7 days. Dispense: 14 capsule; Refill: 0 documented in this encounterLiberty [id number] History of Present illness Narrative* Emely Pedersen, - 03/01/2025 1:40 PM EDTAssociated Problem(s): Chronic obstructive pulmonary disease (CMS/HCC) Lungs around baseline on PE today, continue current tx regimen, refill albuterol nebulizer solution Orders: albuterol (2.5 MG/3ML) 0.083% nebulizer solution; Take 3 mL (2.5 mg) by nebulization every 6 (six) hours if needed for wheezing * Emely Pedersen DO - 03/01/2025 1:40 PM EDT Images from the original note were not included. FAMILY MEDICINE NOTE Chief Complaint: Sinus Infection/Medicare Wellness HPI: Acute complaints/concerns today: Yes, describe: Patient states 3 days ago her nasal congestion started with green phlegm. Patient also coughing up hard green mucus . Patient's care team was updated in EMR today: Yes Patient had a colonoscopy done at [facility] 3 years ago Patient had mammo done 09/2024 Patient had Dexa scan years ago, but states she normally has CT scans done Preventive Screenings: Screening Type Up-to-date Ordered Declined Not Indicated Colon Cancer Screening (Age 45-75) [x] [] [] [] Breast Cancer Screening (Age 40-74) [x] [] [] [] Lung Cancer Screening (Age 50-80 with >=20 pack-year smoking history, currently smoking or quit <15 years) [] [] [x] [] Cervical Cancer Screening (Age 21-65) [] [] [] [x] Osteoporosis Screening (>=65 or younger if high risk) [x] [] [] [] Annual Labs (CBC, CMP, lipids, A1c, etc.) [x] [] [] [] -Dental: Up to date. Advised patient that we recommend seeing a dentist at least every 6 months. -Vision: Needs to make appt. Goes yearly. 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 -Mincog 03/06 today Sinus Issues Experiencing facial swelling and persistent cold symptoms, possibly related to COPD. Reports blowing nose with green discharge, sometimes dark green and hard, especially in the mornings. Has been feeling stuffed up for about the last three days. Previously prescribed an antibiotic before a trip to [place], which was ineffective. Uses Breztri, nasal spray, and a breathing machine at home. Has seen an ear, nose, and throat doctor following a hospital visit. Medicare Wellness Over the past 2 weeks, how often have you been bothered by any of the following problems? Little interest or pleasure in doing things: Not at all Feeling down, depressed, or hopeless: Not at all Patient Health Questionnaire-2 Score: 0 Feng Fall Risk History of Falling, Immediate or Within 3 Months: No Ambulatory Aid: Crutches/cane/walker Health Risk Assessment Form Do you need help eating, bathing, using the toilet, dressing, or getting around your home?: No Can you prepare your own meals?: Yes Can you do your own housework without help?: Yes Can you shop for groceries or clothes without help?: Yes Do you exercise for about 20 minutes 3 or more days a week?: No How confident are you that you can control and manage most of your health problems?: Very confident Can you mange your money, credit cards and accounts, pay bills and taxes?: Yes Cognitive Screening Clock Drawing: Normal Clock - 2 Three Word Recall: All 3 words correct - 3 Total Score (0-5 Points): 5 Pain Assessment Pain Score: 5 - Moderate pain Advance Care Planning Do you have a living will?: No Do you have a medical power of estate planning attorney?: No SUBJECTIVE: PROBLEM LIST SURGICAL/SOCIAL ALLERGIES: Patient Active Problem List Diagnosis Chronic obstructive pulmonary disease ([facility]/HCC) Depression ([facility]) DM2 (diabetes mellitus, type 2) ([facility]) Essential hypertension ([facility]/HCC) Fibromyalgia Hyperlipidemia, group D ([facility]/HCC) Hypogammaglobulinemia ([facility]/HCC) Vitamin D deficiency Thoracic aortic aneurysm without rupture ([facility]/HCC) Primary localized osteoarthrosis of ankle and foot Multiple myeloma not having achieved remission ([facility]/HCC) Morbid obesity ([facility]CC) Hemorrhoids, complicated Familial hyperchylomicronemia (CMS/HCC) GERD (gastroesophageal reflux disease) Immunodeficiency disorder ([facility]/HCC) Constipation 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) ([facility]) BMI 30.0-30.9,adult Acute alteration in mental status [...] Rash Moxifloxacin Hives, Rash and Unknown OBJECTIVE: 03/01/2025 1:51 PM 12/20/2024 1:48 PM 08/25/2024 2:49 PM Vitals BMI 31.89 kg/m2 32.17 kg/m2 34.39 kg/m2 BSA (m2) 1.9 m2 1.91 m2 1.93 m2 Systolic 102 105 Diastolic 70 60 Heart Rate 87 81 SpO2 97 % 97 % Temp 97.7 F 98.2 F Resp 20 20 Height (in) 5' 3 5' 3 5' 2 Weight (lb) 180 181.6 188 Visit Report Report Physical Exam Constitutional: Appearance: Normal appearance. HENT: Nose: Congestion present. Comments: Erythematous nasal mucosa bilaterally, tenderness to palpation of bilateral maxillary sinuses Mouth/Throat: Pharynx: Uvula midline. Posterior oropharyngeal erythema and postnasal drip present. Cardiovascular: Rate and Rhythm: Normal rate and regular rhythm. Heart sounds: No murmur heard. No friction rub. No gallop. Pulmonary: Breath sounds: Wheezing present. No rhonchi or rales. Abdominal: General: Abdomen is flat. Bowel sounds are normal. There is no distension. Palpations: Abdomen is soft. There is no mass. Tenderness: There is no abdominal tenderness. There is no guarding. Musculoskeletal: General: Normal range of motion. Skin: General: Skin is warm. Neurological: General: No focal deficit present. Mental Status: She is alert. Mental status is at baseline. Psychiatric: Mood and Affect: Mood normal. Behavior: Behavior normal. ASSESSMENT AND PLAN: Assessment & Plan Medicare annual wellness visit, subsequent - Pt UTD on preventive screenings other than eye which he will schedule, see above - Otherwise MWV grossly wnl - Pt confirmed FULL CODE status today - No living will or medical power of estate planning attorney in place. - Provided paperwork for living will and power of estate planning attorney to review with family. Chronic obstructive pulmonary disease, unspecified COPD type (CMS/HCC) Lungs around baseline on PE today, continue current tx regimen, refill albuterol nebulizer solution Orders: albuterol (2.5 MG/3ML) 0.083% nebulizer solution; Take 3 mL (2.5 mg) by nebulization every 6 (six) hours if needed for wheezing Seasonal allergic rhinitis due to pollen See above, increase flonase to 2 puffs in each nostril BID Orders: fluticasone (Flonase) 50 MCG/ACT nasal spray; Administer 2 sprays into each nostril in the morning and 2 sprays before bedtime. Acute recurrent maxillary sinusitis - Sinusitis with erythematous nasal mucosa and tenderness to palpation of bilateral maxillary sinuses. Not currently indicated for antibiotics. - Prescribe a course of steroids. Increase Flonase to two puffs on each side. Recommend nasal saline rinses before Flonase for better absorption and mucus clearance. Monitor for recurrent infections;consider referral to an ENT provider if infections persist. Orders: predniSONE (Deltasone) 20 MG tablet; Take 1 tablet (20 mg) by mouth in the morning and 1 tablet (20mg) before bedtime. Do all this for 5 days. Patient's Medications New Prescriptions PREDNISONE (DELTASONE) 20 MG TABLET Take 1 tablet (20 mg) by mouth in the morning and 1 tablet (20 mg) before bedtime. Do all this for 5 days. Previous Medications ACYCLOVIR (ZOVIRAX) 400 MG TABLET Take 400 mg by mouth in the morning and 400 mg before bedtime. ATORVASTATIN (LIPITOR) 40 MG TABLET Take 1 tablet (40 mg) by mouth Daily TAKE 1 TABLET BY MOUTH EVERY DAY FOR 90 DAYS YZYPRHR-FVRPZYYNDCC-DYUPERTVVM (BREZTRI AEROSPHERE) 160-9-4.8 MCG/ACT AEROSOL Inhale 2 [...] for allergic reaction and then call 911 FREEMediklyYLE LANCETS USE 1 LANCET EVERY DAY *E11.9* FUROSEMIDE (LASIX) 20 MG TABLET Take 1 tablet (20 mg) by mouth Daily GABAPENTIN (NEURONTIN) 400 MG CAPSULE 2 (two) times a day GLUCOSE BLOOD (SmartFocus LITE) TEST STRIP Use as instructed HYDROCORTISONE [...] FOUR TIMES A DAY NEEDED PANTOPRAZOLE (PROTONIX) 20 MG EC TABLET Take 1 tablet (20 mg) by mouth in the morning and 1 tablet (20 mg) before bedtime. Do not crush, chew, or split.. POTASSIUM CHLORIDE ER (MICRO-K) 10 MEQ ER [...] THURSDAY TECLISTAMAB-CQYV 30 MG/3ML SOLUTION Modified Medications Modified Medication Previous Medication ALBUTEROL (2.5 MG/3ML) 0.083% NEBULIZER SOLUTION albuterol (2.5 MG/3ML) 0.083% nebulizer solution Take 3 mL (2.5 mg) by nebulization every 6 (six) hours if needed for wheezing Take 3 mL (2.5 mg) bynebulization every 6 (six) hours if needed for wheezing FLUTICASONE (FLONASE) 50 MCG/ACT NASAL SPRAY fluticasone (Flonase) 50 MCG/ACT nasal spray Administer 2 sprays into each nostril in the morning and 2 sprays before bedtime. Administer 1 spray into each nostril 1 (one) time each day at the same time Discontinued Medications CYCLOBENZAPRINE (FLEXERIL) 5 MG TABLET 1 (one) time each day at the same time. Follow up in about 3 months (around 05/31/2025) for chronic recheck. Emely Pedersen DO documented in this [facility]03-24-2025 Telephone encounter Note* Telephone Encounter - Kalen Palomares - 01/23/2025 10:31 AM EDT 01/23/25 Called to schedule MAW & A1c pt asking for [id number] Miscellaneous Notes* Telephone Encounter - Kalen Palomares - 01/23/2025 10:31 AM EDT 01/23/25 Called to schedule MAW & A1c pt asking for Flonase refill be sent to [facility] * Telephone Encounter - Lisette Melissa - 01/20/2025 10:30 PM EDT Medicare Wellness past due. Also due A1c. Please call and schedule documented in this [facility] [id number] Telephone encounter Note* Telephone Encounter - Lisette Melissa - 01/20/2025 10:30 PM EDT Medicare Wellness past due. Also due A1c. Please call and schedule [id number] Evaluation note* Pre-Procedure Note - Abel Ramirez MD - 01/05/2025 7:30 AM EST INTERVENTIONAL RADIOLOGY PRE-PROCEDURE NOTE Mojgan Pérez is a 69 y.o. female with PMHx of hcc who presents to the interventional radiology department for ablation of right hepatic hcc. Procedure: ablation of right hepatic hcc Indication for procedure: The encounter diagnosis was Liver cell carcinoma (Multi). Past Medical History: Diagnosis Date Aortic aneurysm (CMS-HCC) Aortic stenosis COPD (chronic obstructive pulmonary disease) (Multi) Diabetes mellitus (Multi) Fibromyalgia GERD (gastroesophageal reflux disease) HLD (hyperlipidemia) Hypertension Iron deficiency Liver disease KAPADIA (nonalcoholic steatohepatitis) Neuropathy Past Surgical History: Procedure Laterality Date APPENDECTOMY CARPAL TUNNEL RELEASE Bilateral CHOLECYSTECTOMY ELBOW SURGERY Bilateral HERNIA REPAIR HYSTERECTOMY KNEE ARTHROSCOPY W/ MENISCAL REPAIR Bilateral Relevant Labs: Lab Results Component Value Date CREATININE 0.90 01/05/2025 EGFR 70 01/05/2025 INR 1.3 (H) 01/05/2025 PROTIME 13.9 (H) 01/05/2025 Planned Sedation/Anesthesia: Anesthesia Directed physical examination: General: Normal appearance, behavior, cognition and NAD Heart: Heart regular rate and rhythm Lungs: No increased work of breathing Abdomen: soft and nontender Psych: oriented to time, place and person Current Outpatient Medications: acyclovir (Zovirax) 400 mg tablet, Take 1 tablet (400 mg) by mouth 2 times a day., Disp: 180 tablet, Rfl: 1 albuterol 90 mcg/actuation inhaler, Inhale 2 puffs every 4 hours if needed for shortness of breath or wheezing., Disp: , Rfl: atorvastatin (Lipitor) 80 mg tablet, Take 1 tablet (80 mg) by mouth once daily., Disp: , Rfl: bivqtuwhlx-odlrtdwv-ieaiaeszjb (Breztri Aerosphere) 160-9-4.8 mcg/actuation HFA aerosol inhaler, Inhale 2 puffs 2 times a day., Disp: , Rfl: carvedilol (Coreg) 12.5 mg tablet, Take 1 tablet (12.5 mg) by mouth 2 times daily (morning and lateafternoon)., Disp: , Rfl: cholecalciferol (Vitamin D-3) 125 MCG (5000 UT) capsule, Take 1 capsule (125 mcg) by mouth once daily., Disp: , Rfl: cyanocobalamin, vitamin B-12, 1,000 mcg tablet, sublingual, Place 1 tablet (1,000 mcg) under the tongue once daily., Disp: , Rfl: DULoxetine (Cymbalta) [address] capsule, Take 1 capsule (60 mg) by mouth once daily., Disp: 30 capsule, Rfl: 0 fluticasone (Flonase) 50 mcg/actuation nasal spray, Administer 1 spray into each nostril once dailyas needed for rhinitis. Shake gently. Before first use, prime pump. After use, clean tip and replace cap., Disp: , Rfl: furosemide (Lasix) 20 mg tablet, Take 1 tablet (20 mg) by mouth early in the morning.., Disp: , Rfl: gabapentin (Neurontin) 400 mg capsule, TAKE 1 CAPSULE ORALLY THREE TIMES DAILY FOR PAIN FOR 30 DAYS, Disp: , Rfl: hydrocortisone (Anusol-HC) 2.5 % rectal cream, APPLY RECTALLY 2 TO 4 TIMES PER DAY NEEDED FOR HEMORRHOIDS, Disp: , Rfl: melatonin 1 mg tablet, Take 2 tablets (2 mg) by mouth once daily at bedtime., Disp: , Rfl: metFORMIN (Glucophage) 500 mg tablet, Take 1 tablet (500 mg) by mouth 1 time., Disp: , Rfl: omeprazole (PriLOSEC) [address] capsule, Take 1 capsule (40 mg) by mouth once daily. Do not crush orchew., Disp: , Rfl: oxyCODONE (Roxicodone) 10 mg immediate release tablet, Take 1 tablet (10 mg) by mouth 4 times a dayas needed for severe pain (7 - 10)., Disp: , Rfl: Ozempic 0.25 mg or 0.5 mg (2 mg/3 mL) pen injector, Inject 0.5 mg under the skin 1 (one) time per week., Disp: , Rfl: potassium chloride ER (Micro-K) 10 mEq ER capsule, Take 1 capsule (10 mEq) by mouth once daily., Disp: , Rfl: spironolactone (Aldactone) 50 mg tablet, Take 1 tablet (50 mg) by mouth early in the morning.., Disp: , Rfl: sulfamethoxazole-trimethoprim (Bactrim DS) 800-160 mg tablet, Take 1 tablet by mouth once a day on Thursday, Thursday, and Thursday., Disp: 12 tablet, Rfl: 1 EPINEPHrine 0.3 mg/0.3 mL injection syringe, , Disp: , Rfl: naloxone (Narcan) 4 mg/0.1 mL nasal spray, Administer 1 spray (4 mg) into affected nostril(s) if needed for opioid reversal. May repeat every 2-3 minutes if needed, alternating nostrils, until medical assistance becomes available., Disp: 2 each, Rfl: 0 ondansetron ODT (Zofran-ODT) 8 mg disintegrating tablet, Dissolve 1 tablet (8 mg) in the mouth every 8 hours if needed for vomiting or nausea., Disp: , Rfl: No current facility-administered medications for this encounter. Facility-Administered Medications Ordered in Other Encounters: ceFAZolin (Ancef) in dextrose (iso) IV, , intravenous, PRN, JEAN-PAUL Reveles, 2 g at 01/05/25 0815 fentaNYL PF (Sublimaze) injection, , intravenous, PRN, JEAN-PAUL Reveles, 25 mcg at 01/05/25 0903 lactated Ringer's bolus, , intravenous, Continuous PRN, JEAN-PAUL Reveles, New Bag at 01/05/25 0810 lidocaine (cardiac) (Xylocaine) injection, , intravenous, PRN, JEAN-PAUL Reveles, 100 mg at 01/05/25 0810 midazolam (Versed) injection, , intravenous, PRN, JEAN-PAUL Reveles, 2 mg at 01/05/25 0810 ondansetron (Zofran) injection, , intravenous, PRN, JEAN-PAUL Reveles, 4 mg at 01/05/25 0914 propofol (Diprivan) infusion, , intravenous, PRN, JEAN-PAUL Reveles, 75 mcg/kg/min at 01/05/25 0908 rocuronium (Zemuron) injection, , intravenous, PRN, JEAN-PAUL Reveles, 20 mg at 01/05/25 0859 sugammadex (Bridion) injection, , intravenous, PRN, JEAN-PAUL Reveles, 200 mg at 01/05/25 0917 Mallampati: III (soft and hard palate and base of uvula visible) ASA Score: ASA 3 - Patient with moderate systemic disease with functional limitations Benefits, risks and alternatives of procedure and planned sedation have been discussed with the patient and/or their premium service representative. All questions answered and they agree to proceed. Abel Ramirez MD, PGY-6 Vascular & Interventional Radiology IR pager: [phone] NON-Urgent missionary coordinator weekends and after hours weekdays (5pm - 5am) IR pager: [phone] Urgent & emergent missionary coordinator weekends and after hours weekdays (5pm-7am) IR pager: [phone] [facility] Work Phone: [phone] 127-791303-06-2025 Evaluation note* Pre-Procedure Note - Дмитрий Flores MD - 01/05/2025 7:30 AM EST Interventional Radiology Preprocedure Note Indication for procedure: The encounter diagnosis was Liver cell carcinoma (Multi). Patient presents for MWA of the lesion, segment 7. Relevant review of systems: NA Relevant Labs: Lab Results Component Value Date CREATININE 0.90 01/05/2025 EGFR 70 01/05/2025 INR 1.3 (H) 01/05/2025 PROTIME 13.9 (H) 01/05/2025 Planned Sedation/Anesthesia: General Airway assessment: normal Directed physical examination: Awake and alert, oriented No acute distress Regular rate, rhythm Breathing non-labored Mallampati: Per anesthesia ASA Score: ASA 3 - Patient with moderate systemic disease with functional limitations Benefits, risks and alternatives of procedure and planned sedation have been discussed with the patient and/or their premium service representative. All questions answered and they agree to proceed. [facility] Work Phone: [phone]) 317-881603-06-2025 Miscellaneous Notes* Post-Procedure Note - Abel Ramirez MD - 01/05/2025 7:30 AM EST Interventional Radiology Post-Procedure Note Microwave Ablation of Right Hepatic HCC Procedure Details: Technically successful and uncomplicated microwave ablation of right hepatic HCC. Please see PACS for full procedural details. Patient Tolerance: good Complications: None Indication for procedure: The encounter diagnosis was Liver cell carcinoma (Multi). Pre-Procedure Verification and Time Out: Procedure Location procedure area [facility] - Pre-procedure Verification completed TIME OUT - Final Verification completed immediately prior to procedure start DEBRIEF completed General Information: Date/Time of Procedure: 01/05/25 at 10:03 AM Indication(s): HCC Findings: See PACS Procedure performed by: Abel Ramirez MD Machine Tester(s): Dr. Дмитрий Flores MD Estimated Blood Loss (mL): minimal Specimen: No Informed Consent: written consent obtained Prep: Ultrasound Guided Insertion: Yes Large Drape, Hand Hygiene, Surgical Cap, Surgical Mask, Sterile Gown, Sterile Gloves, Glasses, and Scrubs Patient Position: Supine Site Prep: chlorhexidine, draped, usual sterile procedure followed Anesthesia/Medications: Procedural Sedation: Please See Anesthesia Flowsheet Abel Ramirez MD, PGY-6 Interventional Radiology IR pager: [phone] NON-Urgent missionary coordinator weekends and after hours weekdays (5pm - 5am) IR pager: [phone] Urgent & emergent missionary coordinator weekends and after hours weekdays (5pm-7am) IR pager: [phone] * Pre-Procedure Note - Abel Ramirez MD - 01/05/2025 7:30 AM EST INTERVENTIONAL RADIOLOGY PRE-PROCEDURE NOTE Mojgan Pérez is a 69 y.o. female with PMHx of hcc who presents to the interventional radiology department for ablation of right hepatic hcc. Procedure: ablation of right hepatic hcc Indication for procedure: The encounter diagnosis was Liver cell carcinoma (Multi). Past Medical History: Diagnosis Date Aortic aneurysm (CMS-HCC) Aortic stenosis COPD (chronic obstructive pulmonary disease) (Multi) Diabetes mellitus (Multi) Fibromyalgia GERD (gastroesophageal reflux disease) HLD (hyperlipidemia) Hypertension Iron deficiency Liver disease KAPADIA (nonalcoholic steatohepatitis) Neuropathy Past Surgical History: Procedure Laterality Date APPENDECTOMY CARPAL TUNNEL RELEASE Bilateral CHOLECYSTECTOMY ELBOW SURGERY Bilateral HERNIA REPAIR HYSTERECTOMY KNEE ARTHROSCOPY W/ MENISCAL REPAIR Bilateral Relevant Labs: Lab Results Component Value Date CREATININE 0.90 01/05/2025 EGFR 70 01/05/2025 INR 1.3 (H) 01/05/2025 PROTIME 13.9 (H) 01/05/2025 Planned Sedation/Anesthesia: Anesthesia Directed physical examination: General: Normal appearance, behavior, cognition and NAD Heart: Heart regular rate and rhythm Lungs: No increased work of breathing Abdomen: soft and nontender Psych: oriented to time, place and person Current Outpatient Medications: acyclovir (Zovirax) 400 mg tablet, Take 1 tablet (400 mg) by mouth 2 times a day., Disp: 180 tablet, Rfl: 1 albuterol 90 mcg/actuation inhaler, Inhale 2 puffs every 4 hours if needed for shortness of breath or wheezing., Disp: , Rfl: atorvastatin (Lipitor) 80 mg tablet, Take 1 tablet (80 mg) by mouth once daily., Disp: , Rfl: yrlwcdgfft-kncgontn-xexrlzcmga (Breztri Aerosphere) 160-9-4.8 mcg/actuation HFA aerosol inhaler, Inhale 2 puffs 2 times a day., Disp: , Rfl: carvedilol (Coreg) 12.5 mg tablet, Take 1 tablet (12.5 mg) by mouth 2 times daily (morning and lateafternoon)., Disp: , Rfl: cholecalciferol (Vitamin D-3) 125 MCG (5000 UT) capsule, Take 1 capsule (125 mcg) by mouth once daily., Disp: , Rfl: cyanocobalamin, vitamin B-12, 1,000 mcg tablet, sublingual, Place 1 tablet (1,000 mcg) under the tongue once daily., Disp: , Rfl: DULoxetine (Cymbalta) [address] capsule, Take 1 capsule (60 mg) by mouth once daily., Disp: 30 capsule, Rfl: 0 fluticasone (Flonase) 50 mcg/actuation nasal spray, Administer 1 spray into each nostril once dailyas needed for rhinitis. Shake gently. Before first use, prime pump. After use, clean tip and replace cap., Disp: , Rfl: furosemide (Lasix) 20 mg tablet, Take 1 tablet (20 mg) by mouth early in the morning.., Disp: , Rfl: gabapentin (Neurontin) 400 mg capsule, TAKE 1 CAPSULE ORALLY THREE TIMES DAILY FOR PAIN FOR 30 DAYS, Disp: , Rfl: hydrocortisone (Anusol-HC) 2.5 % rectal cream, APPLY RECTALLY 2 TO 4 TIMES PER DAY NEEDED FOR HEMORRHOIDS, Disp: , Rfl: melatonin 1 mg tablet, Take 2 tablets (2 mg) by mouth once daily at bedtime., Disp: , Rfl: metFORMIN (Glucophage) 500 mg tablet, Take 1 tablet (500 mg) by mouth 1 time., Disp: , Rfl: omeprazole (PriLOSEC) [address] capsule, Take 1 capsule (40 mg) by mouth once daily. Do not crush orchew., Disp: , Rfl: oxyCODONE (Roxicodone) 10 mg immediate release tablet, Take 1 tablet (10 mg) by mouth 4 times a dayas needed for severe pain (7 - 10)., Disp: , Rfl: Ozempic 0.25 mg or 0.5 mg (2 mg/3 mL) pen injector, Inject 0.5 mg under the skin 1 (one) time per week., Disp: , Rfl: potassium chloride ER (Micro-K) 10 mEq ER capsule, Take 1 capsule (10 mEq) by mouth once daily., Disp: , Rfl: spironolactone (Aldactone) 50 mg tablet, Take 1 tablet (50 mg) by mouth early in the morning.., Disp: , Rfl: sulfamethoxazole-trimethoprim (Bactrim DS) 800-160 mg tablet, Take 1 tablet by mouth once a day on Thursday, Thursday, and Thursday., Disp: 12 tablet, Rfl: 1 EPINEPHrine 0.3 mg/0.3 mL injection syringe, , Disp: , Rfl: naloxone (Narcan) 4 mg/0.1 mL nasal spray, Administer 1 spray (4 mg) into affected nostril(s) if needed for opioid reversal. May repeat every 2-3 minutes if needed, alternating nostrils, until medical assistance becomes available., Disp: 2 each, Rfl: 0 ondansetron ODT (Zofran-ODT) 8 mg disintegrating tablet, Dissolve 1 tablet (8 mg) in the mouth every 8 hours if needed for vomiting or nausea., Disp: , Rfl: No current facility-administered medications for this encounter. Facility-Administered Medications Ordered in Other Encounters: ceFAZolin (Ancef) in dextrose (iso) IV, , intravenous, PRN, JEAN-PAUL Reveles, 2 g at 01/05/25 0815 fentaNYL PF (Sublimaze) injection, , intravenous, PRN, JEAN-PAUL Reveles, 25 mcg at 01/05/25 0903 lactated Ringer's bolus, , intravenous, Continuous PRN, JEAN-PAUL Reveles, New Bag at 01/05/25 0810 lidocaine (cardiac) (Xylocaine) injection, , intravenous, PRN, JEAN-PAUL Reveles, 100 mg at 01/05/25 0810 midazolam (Versed) injection, , intravenous, PRN, JEAN-PAUL Reveles, 2 mg at 01/05/25 0810 ondansetron (Zofran) injection, , intravenous, PRN, JEAN-PAUL Reveles, 4 mg at 01/05/25 0914 propofol (Diprivan) infusion, , intravenous, PRN, JEAN-PAUL Reveles, 75 mcg/kg/min at 01/05/25 0908 rocuronium (Zemuron) injection, , intravenous, PRN, JEAN-PAUL Reveles, 20 mg at 01/05/25 0859 sugammadex (Bridion) injection, , intravenous, PRN, Abel Holguin CAA, 200 mg at 01/05/25 0917 Mallampati: III (soft and hard palate and base of uvula visible) ASA Score: ASA 3 - Patient with moderate systemic disease with functional limitations Benefits, risks and alternatives of procedure and planned sedation have been discussed with the patient and/or their premium service representative. All questions answered and they agree to proceed. Abel Ramirez MD, PGY-6 Vascular & Interventional Radiology IR pager: [phone] NON-Urgent missionary coordinator weekends and after hours weekdays (5pm - 5am) IR pager: [phone] Urgent & emergent missionary coordinator weekends and after hours weekdays (5pm-7am) IR pager: [phone] [facility] Work Phone: 1([phone]) 838-223803-06-2025 Miscellaneous Notes* Pre-Procedure Note - Дмитрий Flores MD - 01/05/2025 7:30 AM EST Interventional Radiology Preprocedure Note Indication for procedure: The encounter diagnosis was Liver cell carcinoma (Multi). Patient presents for MWA of the lesion, segment 7. Relevant review of systems: NA Relevant Labs: Lab Results Component Value Date CREATININE 0.90 01/05/2025 EGFR 70 01/05/2025 INR 1.3 (H) 01/05/2025 PROTIME 13.9 (H) 01/05/2025 Planned Sedation/Anesthesia: General Airway assessment: normal Directed physical examination: Awake and alert, oriented No acute distress Regular rate, rhythm Breathing non-labored Mallampati: Per anesthesia ASA Score: ASA 3 - Patient with moderate systemic disease with functional limitations Benefits, risks and alternatives of procedure and planned sedation have been discussed with the patient and/or their premium service representative. All questions answered and they agree to proceed. documented in this encounterUnCenterville Work Phone: 1(104) 983-768503-06-2025 Surgery Postoperative evaluation and management note* Post-Procedure Note - Abel Ramirez MD - 01/05/2025 7:30 AM EST Interventional Radiology Post-Procedure Note Microwave Ablation of Right Hepatic HCC Procedure Details: Technically successful and uncomplicated microwave ablation of right hepatic HCC. Please see PACS for full procedural details. Patient Tolerance: good Complications: None Indication for procedure: The encounter diagnosis was Liver cell carcinoma (Multi). Pre-Procedure Verification and Time Out: Procedure Location procedure area [facility] - Pre-procedure Verification completed TIME OUT - Final Verification completed immediately prior to procedure start DEBRIEF completed General Information: Date/Time of Procedure: 01/05/25 at 10:03 AM Indication(s): HCC Findings: See PACS Procedure performed by: Abel Ramirez MD Machine Tester(s): Dr. Дмитрий Flores MD Estimated Blood Loss (mL): minimal Specimen: No Informed Consent: written consent obtained Prep: Ultrasound Guided Insertion: Yes Large Drape, Hand Hygiene, Surgical Cap, Surgical Mask, Sterile Gown, Sterile Gloves, Glasses, and Scrubs Patient Position: Supine Site Prep: chlorhexidine, draped, usual sterile procedure followed Anesthesia/Medications: Procedural Sedation: Please See Anesthesia Flowsheet Abel Ramirez MD, PGY-6 Interventional Radiology IR pager: [phone] NON-Urgent missionary coordinator weekends and after hours weekdays (5pm - 5am) IR pager: [phone] Urgent & emergent missionary coordinator weekends and after hours weekdays (5pm-7am) IR pager: [phone] [facility] Work Phone: [phone] 868-842502-27-2025 Evaluation note* Diagnosis Onset Date Resolution Status Admit Date Bilateral leg pain acuteFebruary 2024 10:04amHemorrhoids, complicatedacuteFebruary 2024 10:04amHepatocellular carcinomaacuteFebruary 2024 10:04amHypomagnesemia acuteFebruary 2024 10:04amIron deficiency anemiaacuteFebruary 2024 10:04amRefractory chronic coughacuteFebruary 2024 10:04amBone marrow hypocellularitychronicFebruary 2024 10:04amCancer-related painchronic December 29, 2024 10:04amEncounter for antineoplastic immunotherapychronic December 29, 2024 10:04amEncounter for coordination of complex carechronic December 29, 2024 10: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 December 29, 2024 10:04am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)chronicFebruary 2024 10:04amMultiple myelomachronic December 29, 2024 10:04am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chronicFebruary 2024 10:04amBilateral leg painacuteApril 2024 10:32amHemorrhoids, complicatedacuteApril 2024 10:32amHepatocellular carcinomaacuteApril 2024 10:32amIron deficiency anemiaacuteApril 2024 10:32amBone marrow hypocellularitychronicApril 2024 10:32amCancer-related painchronicApril 2024 10:32amEncounter for antineoplastic immunotherapychronicApril 2024 10:32amEncounter for coordination of complex carechronicApril 2024 10:32am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chronicApril 2024 10:32am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)chronic February 03, 2025 10:32amMultiple myelomachronicApril 2024 10:32am 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chronicApril 2024 10:32amCancer associated painacuteApril 2024 2:11pmHepatocellular carcinomaacuteApril 2024 2:11pmNauseaacuteApril 2024 2:11pmCancer associated painacute May 2024 7:47amMultiple myelomaacuteMay 2024 7:47amNauseaacuteMay 2024 7:47amBilateral leg painacuteMay 2024 9:18amHemorrhoids, complicatedacuteMay 2024 9:18amHepatocellular carcinomaacuteMay 2024 9:18amIron deficiency anemiaacuteMay 2024 9:18amBone marrow hypocellularitychronicMay 2024 9:18amCancer-related painchronicMay 2024 9:18amEncounter for antineoplastic immunotherapychronicMay 2024 9:18amEncounter for coordination of complex carechronicMay 2024 9:18am 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chronicMay 2024 9:18am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)chronicMay 2024 9:18amMultiple myelomachronicMay 2024 9:18am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chronicMay 2024 9:18amAcute right hip painacuteMay 2024 9:22amHematuriaacuteMay 2024 9:22amAcute thoracic back painchronicMay 2024 9:22amBone marrow hypocellularitychronicMay 2024 9:22amCancer- related painchronicMay 2024 9:22amChemotherapy-induced neutropeniachronic May 2024 9:22amChronic copper deficiencychronicMay 2024 9:22am Degenerative cervical spinal stenosischronicMay 2024 9:22amEncounter for antineoplastic immunotherapychronicMay 2024 9:22amEncounter for chemotherapy managementchronicy 2024 9:22amEncounter for coordination of complex carechronicMay 2024 9:22amHistory of 2019 novel coronavirus disease (COVID-19)chronicMay 2024 9:22am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chronicMay 2024 9:22amIron deficiencychronicMay 2024 9:22am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)chronic May 2024 9:22amMultiple myelomachronicMay 2024 9:22amNeutropenia, unspecifiedchronicMay 2024 9:22amObesitychronicMay 2024 9:22am 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chronicMay 2024 9:22amFrontal sinusitisresolvedMay 2024 9:22amDiabetes mellitusinactiveMay 2024 9:22amFibromyalgiainactiveMay 2024 9:22amSmoldering multiple myeloma (SMM) inactiveMay 2024 9:22am [facility] Work Phone: [phone] History of Present illness Narrative* Yinka Lopez MD - 12/20/2024 2:00 PM EST SUBJECTIVE Wet cough, no other concerns History of Present Illness The patient presents for preoperative evaluation for a liver lesion. She is scheduled for a liver ablation on 01/05/2025, necessitating preoperative testing. She has been experiencing persistent nausea and a cough that has lasted for approximately one year. She reports no chest pain or shortness of breath but does have a cough. She has a history of an aneurysm, which was reported as stable during her last evaluation. She undergoes regular monitoring of her aneurysm every 6 months to a year by Dr. Mendez. She has a diagnosis of multiple myeloma, which has been present for over four years. She receives monthly lab work and injections every three weeks. She reports no history of osteoporosis. Her diabetes is well-managed. She reports no neck swelling, back pain,or knee issues. She does not experience shortness of breath when lying flat. She has been diagnosed with borderline COPD and experiences discomfort when anything is placed overher face. She has completed her course of Zithromax and is not currently on oxygen therapy. Her current medications include vitamin D, B12, pain medication, Bactrim three times a week, Ozempic 0.5 weekly, Flonase as needed, potassium, Zyrtec, carvedilol, melatonin as needed for sleep, Breztri inhaler, gabapentin twice daily, albuterol aerosols as needed, Protonix twice daily, furosemide, a torvastatin, acyclovir twice daily, spironolactone, metformin, duloxetine, and nausea medication asneeded. She has discontinued prednisone and cough medicine. She does not take sumatriptan. SOCIAL HISTORY She has not smoked in 20 years. She does not consume alcohol. FAMILY HISTORY Her mother, Dang Delgado, of cancer at age 83, which started in the colon and then affected the kidneys. Her father, Viraj Delgado, of prostate cancer at age 74. Her sister, Kavya Tovar, of breast cancer around age 49. Her brother, Johnathan, of lung cancer around age 60. MEDICATIONS Current: Vitamin D, B12, Bactrim, Ozempic, Flonase, potassium, Zyrtec, carvedilol, melatonin, Breztri inhaler, gabapentin, albuterol aerosols, Protonix, furosemide, atorvastatin, acyclovir, spironolactone, metformin, duloxetine. Discontinued: Prednisone, Zithromax. CURRENT MEDICATIONS Current Outpatient Medications: acyclovir (Zovirax) 400 MG tablet, Take 400 mg by mouth in the morning and 400 mg before bedtime., Disp: , Rfl: atorvastatin (Lipitor) 40 MG tablet, Take 1 tablet (40 mg) by mouth Daily TAKE 1 TABLET BY MOUTH EVERY DAY FOR 90 DAYS, Disp: 90 tablet, Rfl: 2 Cqqbnoj-Ogynjxlbnat-Cukxrnpxxy (Breztri Aerosphere) 160-9-4.8 MCG/ACT aerosol, Inhale 2 puffs in the morning and 2 puffs before bedtime., Disp: , Rfl: carvedilol (Coreg) 12.5 MG tablet, Take 1 tablet (12.5 mg) by mouth in the morning and 1 tablet (12.5 mg) in the evening. Take with meals., Disp: 60 tablet, Rfl: 11 cetirizine (ZyrTEC) 10 MG tablet, Take 1 tablet (10 mg) by mouth at bedtime, Disp: 90 tablet, Rfl: 3 cholecalciferol (Vitamin D-3) 125 MCG (5000 UT) capsule, TAKE 1 CAPSULE BY MOUTH EVERY DAY FOR 90 DAYS, Disp: , Rfl: Cyanocobalamin (Vitamin B-12) 1000 MCG sublingual tablet, DISSOLVE 1 TABLET UNDER THE TONGUE ONCE ADAY, Disp: , Rfl: cyclobenzaprine (Flexeril) 5 MG tablet, 1 (one) time each day at the same time., Disp: , Rfl: DULoxetine (Cymbalta) [address] capsule, Take 1 capsule (60 mg) by mouth Daily Do not crush or chew., Disp: 90 capsule, Rfl: 3 FreeStyle lancets, USE 1 LANCET EVERY DAY *E11.9*, Disp: , Rfl: furosemide (Lasix) 20 MG tablet, Take 1 tablet (20 mg) by mouth Daily, Disp: 90 tablet, Rfl: 3 gabapentin (Neurontin) 400 MG capsule, 2 (two) times a day, Disp: , Rfl: glucose blood (FREESTYLE LITE) test strip, Use as instructed, Disp: 100 each, Rfl: 3 melatonin tablet, Take 2 mg by mouth at bedtime, Disp: , Rfl: metFORMIN XR (Glucophage-XR) 500 MG 24 hr tablet, Take 1 tablet (500 mg) by mouth Daily, Disp: 90 tablet, Rfl: 3 naloxone (Narcan) 4 mg/0.1 mL nasal spray, Administer 4 mg into affected nostril(s), Disp: , Rfl: ondansetron ODT (Zofran-ODT) 8 MG disintegrating tablet, Take 8 mg by mouth every 8 (eight) hours if needed for nausea or vomiting., Disp: , Rfl: oxyCODONE (Roxicodone) 10 MG immediate release tablet, TAKE 1 TABLET BY MOUTH FOUR TIMES A DAY NEEDED, Disp: , Rfl: pantoprazole (Protonix) 20 MG EC tablet, Take 1 tablet (20 mg) by mouth in the morning and 1 tablet(20 mg) before bedtime. Do not crush, chew, or split.., Disp: 180 tablet, Rfl: 1 potassium chloride ER (Micro-K) 10 MEQ ER capsule, Take 10 mEq by mouth in the morning., Disp: , Rfl: Semaglutide,0.25 or 0.5MG/DOS, (Ozempic, 0.25 or 0.5 MG/DOSE,) 2 MG/3ML solution pen-injector, Inject 0.5 mg under the skin 1 (one) time per week, Disp: 9 mL, Rfl: 0 spironolactone (Aldactone) 50 MG tablet, Take 1 tablet (50 mg) by mouth Daily, Disp: 90 tablet, Rfl: 3 sulfamethoxazole-trimethoprim (Bactrim DS) 800-160 MG per tablet, TAKE 1 TABLET BY MOUTH EVERY THURSDAY, THURSDAY AND THURSDAY, Disp: , Rfl: Teclistamab-cqyv 30 MG/3ML solution, , Disp: , Rfl: albuterol (2.5 MG/3ML) 0.083% nebulizer solution, Take 3 mL (2.5 mg) by nebulization every 6 (six) hours if needed for wheezing, Disp: 75 mL, Rfl: 2 EPINEPHrine (Epipen) 0.3 MG/0.3ML injection syringe, Inject 0.3 mL (0.3 mg) as directed 1 (one) time for 1 dose use as directed for allergic reaction and then call 911, Disp: 0.3 mL, Rfl: 1 fluticasone (Flonase) 50 MCG/ACT nasal spray, Administer 1 spray into each nostril 1 (one) time each day at the same time, Disp: , Rfl: RECENT VITAL SIGNS 03/31/2024 2:16 PM 04/28/2024 1:47 PM 05/30/2024 11:19 AM 06/20/2024 2:56 PM 08/23/2024 1:59 PM 08/25/2024 2:49 PM 12/20/2024 1:48 PM Vitals BMI 30.43 kg/m2 31.83 kg/m2 28.5 kg/m2 28.72 kg/m2 33.29 kg/m2 34.39 kg/m2 32.17 kg/m2 BSA (m2) 1.82 m2 1.86 m2 1.76 m2 1.76 m2 1.9 m2 1.93 m2 1.91 m2 Systolic 120 112 130 118 100 105 Diastolic 68 70 60 62 58 60 Heart Rate 80 78 78 98 73 81 SpO2 96 % 97 % 99 % 98 % 98 % 97 % Temp 98.4 F 97.3 F 98.3 F 97.2 F 98.1 F 98.2 F Resp 16 16 16 20 Height (in) 5' 2 5' 2 5' 2 5' 2 5' 2 5' 2 5' 3 Weight (lb) 166.4 174 155.8 157 182 188 181.6 Visit Report Report Report Report Report Report RECENT LABS Recent Results (from the past 6 weeks) CBC auto differential Collection Time: 12/07/24 10:10 AM Result Value Ref Range WBC 1.9 (L) 3.8 - 11.6 10*3/uL UNCORRECTED WHITE BLOOD COUNT 1.9 (L) 3.8 - 11.6 10*3/uL RBC 3.38 (L) 3.60 - 5.00 10*6/uL HEMOGLOBIN 9.2 (L) 11.8 - 15.4 g/dL HEMATOCRIT 27.9 (L) 34.0 - 46.4 % MCV 82.6 80 - 100 fL MCH 27.2 24.7 - 34.3 pg MCHC 33.0 32.0 - 35.0 g/dL RED CELL DISTRIBUTION WIDTH, RDW 20.3 (H) 11.9 - 15.3 % PLATELET COUNT 45 (L) 150 - 450 10*3/uL MEAN PLATELET VOLUME, MPV 7.7 6.3 - 10.7 fL Comprehensive metabolic panel Collection Time: 12/07/24 10:10 AM Result Value Ref Range Glucose 82 70 - 100 mg/dL BUN 22 7 - 25 mg/dL CREATININE 0.95 0.60 - 1.20 mg/dL ESTIMATED GFR >60.0 mL/Min Sodium 140 136 - 145 mmol/L Potassium, Bld 3.8 3.5 - 5.1 mmol/L Chloride 107 98 - 107 mmol/L Carbon Dioxide 28.8 21.0 - 31.0 mmol/L Anion Gap 8.0 6.0 - 15.0 meq/L Calcium 8.8 8.6 - 10.3 mg/dL TOTAL PROTEIN 5.5 (L) 6.4 - 8.9 g/dL ALBUMIN LEVEL 3.7 3.5 - 5.7 g/dL GLOBULIN 1.8 g/dL ALBUMIN/GLOBULIN RATIO 2.1 BILIRUBIN,TOTAL 0.7 0.3 - 1.0 mg/dL ASPARTATE AMINO TRANSFERASE 35 13 - 39 U/L ALANINE AMINOTRANSFERASE 29 7 - 52 U/L ALKALINE PHOSPHATASE 80 34 - 104 U/L CREATININE CLR [facility] 57.06 SCAN AND CBC Collection Time: 12/07/24 10:10 AM Result Value Ref Range WBC 1.9 (L) 3.8 - 11.6 10*3/uL UNCORRECTED WHITE BLOOD COUNT 1.9 (L) 3.8 - 11.6 10*3/uL RBC 3.38 (L) 3.60 - 5.00 10*6/uL HEMOGLOBIN 9.2 (L) 11.8 - 15.4 g/dL HEMATOCRIT 27.9 (L) 34.0 - 46.4 % MCV 82.6 80 - 100 fL MCH 27.2 24.7 - 34.3 pg MCHC 33.0 32.0 - 35.0 g/dL RED CELL DISTRIBUTION WIDTH, RDW 20.3 (H) 11.9 - 15.3 % PLATELET COUNT 45 (L) 150 - 450 10*3/uL MEAN PLATELET VOLUME, MPV 7.7 6.3 - 10.7 fL NEUTROPHILS, % 56.4 . % LYMPHOCYTES, % 20.5 . % MONOCYTE/MACROPHAGE, % 22.6 . % EOSINOPHILS, % 0.2 . % BASOPHILS, % 0.3 . % NRBC 0.0 0 - 0.5 /100[WBC] NEUTROPHILS 1.1 (L) 1.8 - 7.7 10*3/uL LYMPHOCYTES 0.4 (L) 1.00 - 4.8 10*3/uL MONOCYTES 0.4 0.0 - 0.8 10*3/uL EOSINOPHILS 0.0 0.0 - 0.45 10*3/uL BASOPHILS 0.0 0.0 - 0.2 10*3/uL POLYCHROMASIA Slight HYPOCHROMASIA Slight POIKILOCYTOSIS Slight ANISOCYTOSIS Moderate OVALOCYTES Slight TOXIC GRANULATION Moderate PLATELET ESTIMATE Decreased Normal PLATELET MORPHOLOGY Normal Normal POCT glycosylated hemoglobin (Hb A1C) docked device Collection Time: 12/20/24 2:47 PM Result Value Ref Range Hemoglobin A1C 5.6 OBJECTIVE Physical Exam Physical Exam The patient is a well-nourished, well-developed, white female who is in no acute distress. Head is normocephalic and atraumatic. Ears are clear bilaterally. Nose is clear. Mouth has denturesin the upper portion and no teeth on the bottom, but the denture is not present. Neck is supple and somewhat full. Lungs are clear to auscultation and percussion. Heart has a regular rate without murmur, gallop, or displaced PMI. Abdomen is soft, nontender, and nondistended. There is a lot of pannus formation in the lower abdomen region. Right lower extremity has slight 1+ pitting edema, but pulses are good bilaterally. Left leg is within normal limits with good pulses in the dorsalis pedis and posterior tibialis. Upper extremities are doing well. Lower extremities are well with good flexion and extension. No crepitus in the knees o r the back. Skin is warm and dry without any other problems. The patient is alert and oriented x3. Cranial nerves II through XII are intact. No focal deficits. Vital Signs Blood pressure is 105/60. ASSESSMENT/PLAN Problem List Items Addressed This Visit Respiratory Chronic obstructive pulmonary disease ([facility]/HCC) Discussed the possible complications of COPD, including the risk of respiratory failure, hospitalization and . Encouraged the patient to maintain a healthy weight with a BMI of less than 26, obtain regular periods of exercise, take medications as perscribed, and to avoid enviroments with smokeexposure. 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 The specific goals of treatment, to include keeping the HbA1C less than 7.0 and the blood pressure less than 140/90, were reviewed. The blood pressure and most recent HbA1C were provided. Continue the current plan of eating a proper diabetic diet, exercising regularly, and taking prescribed medications. The patient was instructed to call the office if any problems arise. Relevant Orders POCT glycosylated hemoglobin (Hb A1C) docked device (Completed) Vitamin D deficiency Take medication as directed. Encouraged to obtain 20 minutes of direct sunlight daily during peak hours of sunlight. Consume food sources high in Vitamin D. Repeat labs as instructed. I recommend thevitamin d level between 40-60. Other Visit Diagnoses Liver lesion - Primary All of the presurgical data were reviewed with pt . No obvious contradictions are note and thus medical clearance is granted for procedure. Aware to report any last minute changes in health such as fever, diarrhea, urinary symptoms etc. Patient verbalized understanding. Copy of this note sent via fax to surgeon. Relevant Orders Type and screen TSH Protime-INR Class 1 obesity due to excess calories with serious comorbidity and body mass index (BMI) of 33.0 to 33.9 in adult Your BMI is currently in the overweight or obese range. Low calorie or reduced carbohydrate diet isencouraged. It is recommend to journal food intake and exercise performance either using a simple paper/calendar system or downloading the [employer] application to track calorie consumption, food intake, exercise performance. You can also investigate Weight Watchers as a possible diet plan. Start with at least 150 minutes of exercise weekly and increase to a goal of 60 minutes per day. It isimportant to identify barriers to the following treatment plan. Seasonal allergic rhinitis due to pollen Patient is currently suffering from allergic rhinitis (seasonal allergies). There are common uyir-esl-somljum and prescription medications used in the treatment of allergic rhinitis. This was discussed during today's visit. Sinus irrigation encouraged to help rinse the allergens from the sinus cavities. Encouraged to keep the air moving in bedrooms. Identify possible triggers of allergies and remove them from daily activities. Medication management discussed and plan of care initiated. Nasal saline spray may be used for comfort. Follow- up if symptoms do not improve. Other pancytopenia (CMS/HCC) Stable Inhalant abuse, in remission (CMS/HCC) Stable Pre-op testing All of the presurgical data were reviewed with pt . No obvious contradictions are note and thus medical clearance is granted for procedure. Aware to report any last minute changes in health such as fever, diarrhea, urinary symptoms etc. Patient verbalized understanding. Copy of this note sent via fax to surgeon. Relevant Orders ECG 12 lead (Completed) Assessment & Plan 1. Preoperative evaluation for liver lesion. She is scheduled for a liver ablation on 01/05/2025. Preoperative testing will include a urine test, CBC, BMP, PT, INR, PTT, and ABG at home. An EKG will be performed today. She is not on oxygen and has borderline COPD. 2. Chronic cough. She has had a persistent cough for almost a year. Inhalers help alleviate the symptoms. No chest pain or shortness of breath reported. 3. Multiple myeloma. She has a history of multiple myeloma for over four years. She receives regular lab work and injections every three weeks. Her white count, hemoglobin, and platelets are monitored monthly. 4. Borderline COPD. She is on the borderline of COPD and can not tolerate anything over her face. She uses inhalers as needed. 5. Diabetes Mellitus. She takes Ozempic 0.5 mg weekly. Her diabetes is well-controlled. A hemoglobin A1c test will be conducted today. 6. Hypertension. She is on carvedilol. Blood pressure is currently low at 105/60 mmHg. 7. Pancytopenia. She has low white count, hemoglobin, and platelets. Regular monitoring is in place. 8. Cirrhotic liver. Partially visualized cirrhotic liver with some splenomegaly noted on imaging. 9. Aneurysm. She has an aneurysm that is monitored every 6 months to a year. Last check was stable. 10. Medication management. She takes multiple medications including vitamin D, B12, pain medication, Bactrim three times a week, Flonase as needed, potassium, Zyrtec, carvedilol, melatonin as needed, Breztri inhaler, gabapentin twice a day, albuterol aerosol as needed, Protonix twice a day, furosemide, atorvastatin, acyclovir twice a day, spironolactone, metformin, duloxetine, and nausea medication as needed. FOLLOW-UP No follow-ups on file. documented in this [facility]02-05-2025 Telephone encounter Note* Telephone Encounter - Fabiola Palumbo NP - 12/07/2024 6:46 AM EST [id number] Miscellaneous Notes* Telephone Encounter - Fabiola Palumbo NP - 12/07/2024 6:46 AM EST Sent documented in this [facility]01-30-2025 History of Present illness Narrative* Fabiola Palumbo NP - 12/01/2024 3:00 PM EST SUBJECTIVE Mojgan Pérez is a 69 y.o. female who presents for a telemedicine visit with complaints of chest congestion, productive cough with green/yellow sputum for a 3 days. Denies fever, body aches, chills, N/V/D. Denies use of OTC medications. Denies use of home rapid COVID test. Declining viral respiratory testing at this time. Declining CXR at this time. CURRENT MEDICATIONS Current Outpatient Medications: acyclovir (Zovirax) 400 MG tablet, Take 400 mg by mouth in the morning and 400 mg before bedtime., Disp: , Rfl: albuterol (2.5 MG/3ML) 0.083% nebulizer solution, Take 3 mL (2.5 mg) by nebulization every 6 (six) hours if needed for wheezing, Disp: 75 mL, Rfl: 2 atorvastatin (Lipitor) 40 MG tablet, Take 1 tablet (40 mg) by mouth Daily TAKE 1 TABLET BY MOUTH EVERY DAY FOR 90 DAYS, Disp: 90 tablet, Rfl: 2 azithromycin (Zithromax) 250 MG tablet, Take two tablets on day 1, and one tablet on days 2-5, Disp: 6 tablet, Rfl: 0 Bogoyqa-Putkrgsoblj-Ylemqhpttl (Breztri Aerosphere) 160-9-4.8 MCG/ACT aerosol, Inhale 2 puffs in the morning and 2 puffs before bedtime., Disp: , Rfl: carvedilol (Coreg) 12.5 MG tablet, Take 1 tablet (12.5 mg) by mouth in the morning and 1 tablet (12.5 mg) in the evening. Take with meals., Disp: 60 tablet, Rfl: 11 cetirizine (ZyrTEC) 10 MG tablet, Take 1 tablet (10 mg) by mouth at bedtime, Disp: 90 tablet, Rfl: 3 cholecalciferol (Vitamin D-3) 125 MCG (5000 UT) capsule, TAKE 1 CAPSULE BY MOUTH EVERY DAY FOR 90 DAYS, Disp: , Rfl: Cyanocobalamin (Vitamin B-12) 1000 MCG sublingual tablet, DISSOLVE 1 TABLET UNDER THE TONGUE ONCE ADAY, Disp: , Rfl: cyclobenzaprine (Flexeril) 5 MG tablet, 1 (one) time each day at the same time., Disp: , Rfl: Dextromethorphan-Pyrilamine ([place] DM) 7.5-7.5 MG/5ML liquid, Take 5 mL by mouth every 6 (six) hours if needed (cough) for up to 7 days, Disp: 140 mL, Rfl: 0 DULoxetine (Cymbalta) [address] capsule, Take 1 capsule (60 mg) by mouth Daily Do not crush or chew., Disp: 90 capsule, Rfl: 3 EPINEPHrine (Epipen) 0.3 MG/0.3ML injection syringe, Inject 0.3 mL (0.3 mg) as directed 1 (one) time for 1 dose use as directed for allergic reaction and then call 911, Disp: 0.3 mL, Rfl: 1 fluticasone (Flonase) 50 MCG/ACT nasal spray, Administer 1 spray into each nostril 1 (one) time each day at the same time, Disp: , Rfl: FreeStyle lancets, USE 1 LANCET EVERY DAY *E11.9*, Disp: , Rfl: furosemide (Lasix) 20 MG tablet, TAKE 1 TABLET BY MOUTH EVERY DAY, Disp: 90 tablet, Rfl: 1 gabapentin (Neurontin) 400 MG capsule, 2 (two) times a day, Disp: , Rfl: glucose blood (FREESTYLE LITE) test strip, Use as instructed, Disp: 100 each, Rfl: 3 melatonin tablet, Take 2 mg by mouth at bedtime, Disp: , Rfl: metFORMIN XR (Glucophage-XR) 500 MG 24 hr tablet, Take 1 tablet (500 mg) by mouth Daily, Disp: 90 tablet, Rfl: 3 naloxone (Narcan) 4 mg/0.1 mL nasal spray, Administer 4 mg into affected nostril(s), Disp: , Rfl: ondansetron ODT (Zofran-ODT) 8 MG disintegrating tablet, Take 8 mg by mouth every 8 (eight) hours if needed for nausea or vomiting., Disp: , Rfl: oxyCODONE (Roxicodone) 10 MG immediate release tablet, TAKE 1 TABLET BY MOUTH FOUR TIMES A DAY NEEDED, Disp: , Rfl: pantoprazole (Protonix) 20 MG EC tablet, Take 1 tablet (20 mg) by mouth in the morning and 1 tablet(20 mg) before bedtime. Do not crush, chew, or split.., Disp: 180 tablet, Rfl: 1 potassium chloride ER (Micro-K) 10 MEQ ER capsule, Take 10 mEq by mouth in the morning., Disp: , Rfl: predniSONE (Deltasone) 20 MG tablet, Take two tablets (40 mg) daily for five days, then take one tablet (20 mg) daily for five days. Take with food., Disp: 15 tablet, Rfl: 0 Semaglutide,0.25 or 0.5MG/DOS, (Ozempic, 0.25 or 0.5 MG/DOSE,) 2 MG/3ML solution pen-injector, Inject 0.5 mg under the skin 1 (one) time per week, Disp: 3 mL, Rfl: 2 spironolactone (Aldactone) 50 MG tablet, TAKE 1 TABLET BY MOUTH EVERY DAY, Disp: 90 tablet, Rfl: 1 sulfamethoxazole-trimethoprim (Bactrim DS) 800-160 MG per tablet, TAKE 1 TABLET BY MOUTH EVERY THURSDAY, THURSDAY AND THURSDAY, Disp: , Rfl: SUMAtriptan (Imitrex) 50 MG tablet, Take 50 mg by mouth 1 (one) time if needed., Disp: , Rfl: Teclistamab-cqyv 30 MG/3ML solution, , Disp: , Rfl: RECENT VITAL SIGNS 03/11/2024 2:22 PM 03/31/2024 2:16 PM 04/28/2024 1:47 PM 05/30/2024 11:19 AM 06/20/2024 2:56 PM 08/23/2024 1:59 PM 08/25/2024 2:49 PM Vitals BMI 31.83 kg/m2 30.43 kg/m2 31.83 kg/m2 28.5 kg/m2 28.72 kg/m2 33.29 kg/m2 34.39 kg/m2 BSA (m2) 1.86 m2 1.82 m2 1.86 m2 1.76 m2 1.76 m2 1.9 m2 1.93 m2 Systolic 120 112 130 118 100 Diastolic 68 70 60 62 58 Heart Rate 80 78 78 98 73 SpO2 96 % 97 % 99 % 98 % 98 % Temp 98.4 F 97.3 F 98.3 F 97.2 F 98.1 F Resp 16 16 16 Height (in) 5' 2 5' 2 5' 2 5' 2 5' 2 5' 2 5' 2 Weight (lb) 174 166.4 174 155.8 157 182 188 Visit Report Report Report Report Report Report Report RECENT LABS Recent Results (from the past 6 weeks) CBC auto differential Collection Time: 10/27/24 8:40 AM Result Value Ref Range WBC 2.2 (L) 3.8 - 11.6 10*3/uL UNCORRECTED WHITE BLOOD COUNT 2.2 (L) 3.8 - 11.6 10*3/uL RBC 3.59 (L) 3.60 - 5.00 10*6/uL HEMOGLOBIN 9.3 (L) 11.8 - 15.4 g/dL HEMATOCRIT 29.0 (L) 34.0 - 46.4 % MCV 81.0 80 - 100 fL MCH 26.0 24.7 - 34.3 pg MCHC 32.1 32.0 - 35.0 g/dL RED CELL DISTRIBUTION WIDTH, RDW 18.6 (H) 11.9 - 15.3 % PLATELET COUNT 49 (L) 150 - 450 10*3/uL MEAN PLATELET VOLUME, MPV 8.3 6.3 - 10.7 fL SCAN AND CBC Collection Time: 10/27/24 8:40 AM Result Value Ref Range WBC 2.2 (L) 3.8 - 11.6 10*3/uL UNCORRECTED WHITE BLOOD COUNT 2.2 (L) 3.8 - 11.6 10*3/uL RBC 3.59 (L) 3.60 - 5.00 10*6/uL HEMOGLOBIN 9.3 (L) 11.8 - 15.4 g/dL HEMATOCRIT 29.0 (L) 34.0 - 46.4 % MCV 81.0 80 - 100 fL MCH 26.0 24.7 - 34.3 pg MCHC 32.1 32.0 - 35.0 g/dL RED CELL DISTRIBUTION WIDTH, RDW 18.6 (H) 11.9 - 15.3 % PLATELET COUNT 49 (L) 150 - 450 10*3/uL MEAN PLATELET VOLUME, MPV 8.3 6.3 - 10.7 fL NEUTROPHILS, % 34.5 . % LYMPHOCYTES, % 23.1 . % MONOCYTE/MACROPHAGE, % 20.8 . % EOSINOPHILS, % 21.2 . % BASOPHILS, % 0.4 . % NRBC 0.1 0 - 0.5 /100[WBC] NEUTROPHILS 0.8 (L) 1.8 - 7.7 10*3/uL LYMPHOCYTES 0.5 (L) 1.00 - 4.8 10*3/uL MONOCYTES 0.5 0.0 - 0.8 10*3/uL EOSINOPHILS 0.5 (H) 0.0 - 0.45 10*3/uL BASOPHILS 0.0 0.0 - 0.2 10*3/uL HYPOCHROMASIA Slight POIKILOCYTOSIS Slight ANISOCYTOSIS Moderate MICROCYTOSIS Slight OVALOCYTES Slight PLATELET ESTIMATE Decreased Normal PLATELET MORPHOLOGY Normal Normal Comprehensive metabolic panel Collection Time: 10/27/24 8:40 AM Result Value Ref Range Glucose 117 (H) 70 - 100 mg/dL BUN 16 7 - 25 mg/dL CREATININE 1.12 0.60 - 1.20 mg/dL ESTIMATED GFR 53.896 mL/Min Sodium 141 136 - 145 mmol/L Potassium, Bld 4.1 3.5 - 5.1 mmol/L Chloride 105 98 - 107 mmol/L Carbon Dioxide 28.5 21.0 - 31.0 mmol/L Anion Gap 11.6 6.0 - 15.0 meq/L Calcium 8.7 8.6 - 10.3 mg/dL TOTAL PROTEIN 5.5 (L) 6.4 - 8.9 g/dL ALBUMIN LEVEL 3.6 3.5 - 5.7 g/dL GLOBULIN 1.9 g/dL ALBUMIN/GLOBULIN RATIO 1.9 BILIRUBIN,TOTAL 0.8 0.3 - 1.0 mg/dL ASPARTATE AMINO TRANSFERASE 26 13 - 39 U/L ALANINE AMINOTRANSFERASE 12 7 - 52 U/L ALKALINE PHOSPHATASE 84 34 - 104 U/L CREATININE CLR [facility] 48.40 CBC auto differential Collection Time: 11/16/24 9:50 AM Result Value Ref Range WBC 2.2 (L) 3.8 - 11.6 10*3/uL UNCORRECTED WHITE BLOOD COUNT 2.2 (L) 3.8 - 11.6 10*3/uL RBC 3.62 3.60 - 5.00 10*6/uL HEMOGLOBIN 9.7 (L) 11.8 - 15.4 g/dL HEMATOCRIT 29.5 (L) 34.0 - 46.4 % MCV 81.3 80 - 100 fL MCH 26.8 24.7 - 34.3 pg MCHC 33.0 32.0 - 35.0 g/dL RED CELL DISTRIBUTION WIDTH, RDW 19.4 (H) 11.9 - 15.3 % PLATELET COUNT 51 (L) 150 - 450 10*3/uL MEAN PLATELET VOLUME, MPV 8.3 6.3 - 10.7 fL Comprehensive metabolic panel Collection Time: 11/16/24 9:50 AM Result Value Ref Range Glucose 115 (H) 70 - 100 mg/dL BUN 16 7 - 25 mg/dL CREATININE 1.08 0.60 - 1.20 mg/dL ESTIMATED GFR 56.300 mL/Min Sodium 137 136 - 145 mmol/L Potassium, Bld 4.2 3.5 - 5.1 mmol/L Chloride 102 98 - 107 mmol/L Carbon Dioxide 29.2 21.0 - 31.0 mmol/L Anion Gap 10.0 6.0 - 15.0 meq/L Calcium 8.9 8.6 - 10.3 mg/dL TOTAL PROTEIN 5.7 (L) 6.4 - 8.9 g/dL ALBUMIN LEVEL 3.7 3.5 - 5.7 g/dL GLOBULIN 2.0 g/dL ALBUMIN/GLOBULIN RATIO 1.9 BILIRUBIN,TOTAL 0.9 0.3 - 1.0 mg/dL ASPARTATE AMINO TRANSFERASE 27 13 - 39 U/L ALANINE AMINOTRANSFERASE 12 7 - 52 U/L ALKALINE PHOSPHATASE 81 34 - 104 U/L CREATININE CLR [facility] 50.05 SCAN AND CBC Collection Time: 11/16/24 9:50 AM Result Value Ref Range WBC 2.2 (L) 3.8 - 11.6 10*3/uL UNCORRECTED WHITE BLOOD COUNT 2.2 (L) 3.8 - 11.6 10*3/uL RBC 3.62 3.60 - 5.00 10*6/uL HEMOGLOBIN 9.7 (L) 11.8 - 15.4 g/dL HEMATOCRIT 29.5 (L) 34.0 - 46.4 % MCV 81.3 80 - 100 fL MCH 26.8 24.7 - 34.3 pg MCHC 33.0 32.0 - 35.0 g/dL RED CELL DISTRIBUTION WIDTH, RDW 19.4 (H) 11.9 - 15.3 % PLATELET COUNT 51 (L) 150 - 450 10*3/uL MEAN PLATELET VOLUME, MPV 8.3 6.3 - 10.7 fL NEUTROPHILS, % 25.4 . % LYMPHOCYTES, % 22.6 . % MONOCYTE/MACROPHAGE, % 22.9 . % EOSINOPHILS, % 28.6 . % BASOPHILS, % 0.5 . % NRBC 0.0 0 - 0.5 /100[WBC] NEUTROPHILS 0.6 (L) 1.8 - 7.7 10*3/uL LYMPHOCYTES 0.5 (L) 1.00 - 4.8 10*3/uL MONOCYTES 0.5 0.0 - 0.8 10*3/uL EOSINOPHILS 0.6 (H) 0.0 - 0.45 10*3/uL BASOPHILS 0.0 0.0 - 0.2 10*3/uL POIKILOCYTOSIS Slight ANISOCYTOSIS Moderate OVALOCYTES Slight PLATELET ESTIMATE Decreased Normal PLATELET MORPHOLOGY Normal Normal IMMUNOGLOBULINS A/G/M, QN, SER Collection Time: 11/16/24 9:50 AM Result Value Ref Range IMMUNOGLOBULIN G 430 (L) 586 - 1,602 mg/dL IMMUNOGLOBULIN A, SERUM <5 (L) 87 - 352 mg/dL IMMUNOGLOBULIN M, SERUM 5 (L) 26 - 217 mg/dL OBJECTIVE Physical Exam Constitutional: Appearance: She is ill-appearing. HENT: Head: Normocephalic and atraumatic. Nose: Congestion and rhinorrhea present. Pulmonary: Effort: Pulmonary effort is normal. Comments: Intermittent congested cough noted. Neurological: General: No focal deficit present. Mental Status: She is alert and oriented to person, place, and time. Psychiatric: Mood and Affect: Mood normal. ASSESSMENT/PLAN Diagnoses and all orders for this visit: Upper respiratory tract infection, unspecified type - predniSONE (Deltasone) 20 MG tablet; Take two tablets (40 mg) daily for five days, then take one tablet (20 mg) daily for five days. Take with food. - azithromycin (Zithromax) 250 MG tablet; Take two tablets on day 1, and one tablet on days 2-5 - Dextromethorphan-Pyrilamine ([place] DM) 7.5-7.5 MG/5ML liquid; Take 5 mL by mouth every 6 (six) hours if needed (cough) for up to 7 days Type 2 diabetes mellitus with diabetic chronic kidney disease (CMS/HCC) Chronic kidney disease, stage 3a (HCC) (CMS/HCC) Multiple myeloma not having achieved remission (CMS/HCC) Paroxysmal atrial fibrillation (CMS/HCC) Unspecified cirrhosis of liver (CMS/HCC) Chronic obstructive pulmonary disease, unspecified (CMS/HCC) Gastroesophageal reflux disease without esophagitis - pantoprazole (Protonix) 20 MG EC tablet; Take 1 tablet (20 mg) by mouth in the morning and 1 tablet (20 mg) before bedtime. Do not crush, chew, or split.. FOLLOW-UP Follow up in about 3 days (around 12/04/2024) for Recheck: if s/s do not improve . documented in this encounterLiberty [id number] Instructions* Patient Instructions* Fabiola Palumbo NP - 12/01/2024 3:00 PM EST PATIENT EDUCATION: documented in this encounterLiberty [id number] History and physical note * Дмитрий Flores MD - 11/29/2024 3:00 PM EST This consultation was provided via telemedicine using two-way, real-time interactive telecommunication technology between the patient and the physician. The interactive telecommunication technology included audio only. The patient was offered telemedicine as an option for care delivery and consented to this option. Patient location: Home Provider location: [facility] Other participants present with provider, with patients verbal consent: none Other participants present with patient: none Total time of telemedicine visit: 45 minutes >50% of which was spent on patient counseling and coordination of patient care. History Of Present Illness Mojgan Pérez is a 69 y.o. female presenting with hepatocellular carcinoma with MRI findings of HCCinvolving the posterior right hepatic lobe. No current symptoms related to the HCC. KAPADIA cirrhosis,followed by Dr. Sanchez at [facility] and had screening ultrasound in September of 2024 showing a suspicious 2.6 cm right hepatic lobe mass, follow up MRI confirms the finding. Past Medical History Past Medical History: Diagnosis Date Aortic aneurysm (CMS-HCC) Aortic stenosis COPD (chronic obstructive pulmonary disease) (Multi) Diabetes mellitus (Multi) Fibromyalgia GERD (gastroesophageal reflux disease) HLD (hyperlipidemia) Hypertension Iron deficiency Liver disease KAPADIA (nonalcoholic steatohepatitis) Neuropathy Surgical History Past Surgical History: Procedure Laterality Date APPENDECTOMY CARPAL TUNNEL RELEASE Bilateral CHOLECYSTECTOMY ELBOW SURGERY Bilateral HERNIA REPAIR HYSTERECTOMY KNEE ARTHROSCOPY W/ MENISCAL REPAIR Bilateral Social History She reports that she quit smoking about 21 years ago. Her smoking use included cigarettes. She started smoking about 48 years ago. She has a 80.2 pack-year smoking history. She has been exposed to tobacco smoke. She has never used smokeless tobacco. She reports that she does not currently use alcohol. She reports that she does not use drugs. Family History Family History Problem Relation Name Age of Onset Cancer Mother Coronary artery disease Father Cancer Father Breast cancer Sister Lung cancer Brother Leukemia Maternal Grandmother Cancer Paternal Grandmother Allergies Latex, Tetracyclines, Adhesive, Amoxicillin, Antazoline, Avelox [moxifloxacin], Diclofenac, and Erythromycin Allergies Allergen Reactions Latex Hives and Rash Tetracyclines Hives and Rash Adhesive Other Amoxicillin Swelling and Rash Antazoline Itching Avelox [Moxifloxacin] Rash Diclofenac Hives Erythromycin Hives PHYSICAL EXAM: Constitutional: In no acute distress, pleasant and cooperative, conversive Psychiatric: Appropriate mood and behavior Respiratory: No conversational dyspnea. No audible expiratory wheeze Exam limited due to telemedicine visit Last Recorded Vitals There were no vitals taken for this visit. Relevant Results Latest Reference Range & Units 09/06/24 13:29 SODIUM 136 - 145 mmol/L 140 POTASSIUM 3.5 - 5.3 mmol/L 4.2 CHLORIDE 98 - 107 mmol/L 104 Bicarbonate 21 - 32 mmol/L 31 Anion Gap 10 - 20 mmol/L 9 (L) Blood Urea Nitrogen 6 - 23 mg/dL 19 Creatinine 0.50 - 1.05 mg/dL 0.96 EGFR >60 mL/min/1.73m*2 65 Calcium 8.6 - 10.3 mg/dL 8.5 (L) Albumin 3.4 - 5.0 g/dL 3.8 Alkaline Phosphatase 33 - 136 U/L 108 ALT 7 - 45 U/L 16 AST 9 - 39 U/L 31 Bilirubin Total 0.0 - 1.2 mg/dL 0.6 Total Protein 6.4 - 8.2 g/dL 6.4 - 8.2 g/dL 5.3 (L) 5.5 (L) (L): Data is abnormally low Imaging as described in the HPI. I independently reviewed the studies. Assessment/Plan Assessment & Plan Monoclonal gammopathy Liver cell carcinoma (Multi) 69 year old woman with monocolonal gammopathy followed by Dr. Marinelli at [facility]. Also known to have KAPADIA cirrhosis and Dr. Sanchez follows this [facility] hepatology [facility]. Has had screening imaging showing a liver lesion and MRI confirms the presence of a 2.6 cm HCC in the right hepatic lobe. 09/06/24labs show preserved liver function. She does have thrombocytopenia. 50 K is the platelet cut off according to SIR guidelines. I discussed the microwave ablation and biopsy procedures with the patient. This included a discussion of the reason for this procedure in the setting of a solitary HCC less than 3 cm, the benefits ofpercutaneous microwave ablation and its use as an alternative to surgical treatment or chemotherapyalone. I also discussed the risks of microwave ablation in the liver. This included, but was not limited to, the risk of infection, bleeding, bile duct injury, liver functional issues, damage to surrounding structures, and the risk of . I discussed the expected course of the treatment as an outpatient procedure but with the potential for admission to the hospital as needed. This will be done under general anesthesia. I spent 45 minutes in the professional and overall care of this patient. Дмитрий Flores MD [facility] Work Phone: [phone] 847-303101-28-2025 History and physical note* Дмитрий Flores MD - 11/29/2024 3:00 PM EST This consultation was provided via telemedicine using two-way, real-time interactive telecommunication technology between the patient and the physician. The interactive telecommunication technology included audio only. The patient was offered telemedicine as an option for care delivery and consented to this option. Patient location: Home Provider location: [facility] Other participants present with provider, with patients verbal consent: none Other participants present with patient: none Total time of telemedicine visit: 45 minutes >50% of which was spent on patient counseling and coordination of patient care. History Of Present Illness Mojgan Pérez is a 69 y.o. female presenting with hepatocellular carcinoma with MRI findings of HCCinvolving the posterior right hepatic lobe. No current symptoms related to the HCC. KAPADIA cirrhosis,followed by Dr. Sanchez at [facility] and had screening ultrasound in September of 2024 showing a suspicious 2.6 cm right hepatic lobe mass, follow up MRI confirms the finding. Past Medical History Past Medical History: Diagnosis Date Aortic aneurysm (CMS-HCC) Aortic stenosis COPD (chronic obstructive pulmonary disease) (Multi) Diabetes mellitus (Multi) Fibromyalgia GERD (gastroesophageal reflux disease) HLD (hyperlipidemia) Hypertension Iron deficiency Liver disease KAPADIA (nonalcoholic steatohepatitis) Neuropathy Surgical History Past Surgical History: Procedure Laterality Date APPENDECTOMY CARPAL TUNNEL RELEASE Bilateral CHOLECYSTECTOMY ELBOW SURGERY Bilateral HERNIA REPAIR HYSTERECTOMY KNEE ARTHROSCOPY W/ MENISCAL REPAIR Bilateral Social History She reports that she quit smoking about 21 years ago. Her smoking use included cigarettes. She started smoking about 48 years ago. She has a 80.2 pack-year smoking history. She has been exposed to tobacco smoke. She has never used smokeless tobacco. She reports that she does not currently use alcohol. She reports that she does not use drugs. Family History Family History Problem Relation Name Age of Onset Cancer Mother Coronary artery disease Father Cancer Father Breast cancer Sister Lung cancer Brother Leukemia Maternal Grandmother Cancer Paternal Grandmother Allergies Latex, Tetracyclines, Adhesive, Amoxicillin, Antazoline, Avelox [moxifloxacin], Diclofenac, and Erythromycin Allergies Allergen Reactions Latex Hives and Rash Tetracyclines Hives and Rash Adhesive Other Amoxicillin Swelling and Rash Antazoline Itching Avelox [Moxifloxacin] Rash Diclofenac Hives Erythromycin Hives PHYSICAL EXAM: Constitutional: In no acute distress, pleasant and cooperative, conversive Psychiatric: Appropriate mood and behavior Respiratory: No conversational dyspnea. No audible expiratory wheeze Exam limited due to telemedicine visit Last Recorded Vitals There were no vitals taken for this visit. Relevant Results Latest Reference Range & Units 09/06/24 13:29 SODIUM 136 - 145 mmol/L 140 POTASSIUM 3.5 - 5.3 mmol/L 4.2 CHLORIDE 98 - 107 mmol/L 104 Bicarbonate 21 - 32 mmol/L 31 Anion Gap 10 - 20 mmol/L 9 (L) Blood Urea Nitrogen 6 - 23 mg/dL 19 Creatinine 0.50 - 1.05 mg/dL 0.96 EGFR >60 mL/min/1.73m*2 65 Calcium 8.6 - 10.3 mg/dL 8.5 (L) Albumin 3.4 - 5.0 g/dL 3.8 Alkaline Phosphatase 33 - 136 U/L 108 ALT 7 - 45 U/L 16 AST 9 - 39 U/L 31 Bilirubin Total 0.0 - 1.2 mg/dL 0.6 Total Protein 6.4 - 8.2 g/dL 6.4 - 8.2 g/dL 5.3 (L) 5.5 (L) (L): Data is abnormally low Imaging as described in the HPI. I independently reviewed the studies. Assessment/Plan Assessment & Plan Monoclonal gammopathy Liver cell carcinoma (Multi) 69 year old woman with monocolonal gammopathy followed by Dr. Marinelli at [facility]. Also known to have KAPADIA cirrhosis and Dr. Sanchez follows this from hepatology at [facility]. Has had screening imaging showing a liver lesion and MRI confirms the presence of a 2.6 cm HCC in the right hepatic lobe. 09/06/24labs show preserved liver function. She does have thrombocytopenia. 50 K is the platelet cut off according to SIR guidelines. I discussed the microwave ablation and biopsy procedures with the patient. This included a discussion of the reason for this procedure in the setting of a solitary HCC less than 3 cm, the benefits ofpercutaneous microwave ablation and its use as an alternative to surgical treatment or chemotherapyalone. I also discussed the risks of microwave ablation in the liver. This included, but was not limited to, the risk of infection, bleeding, bile duct injury, liver functional issues, damage to surrounding structures, and the risk of . I discussed the expected course of the treatment as an outpatient procedure but with the potential for admission to the hospital as needed. This will be done under general anesthesia. I spent 45 minutes in the professional and overall care of this patient. Дмитрий Flores MD documented in this [facility] Work Phone: [phone] 731-965001-27-2025 History of Present illness Narrative* Kapil Mortensen, [employer]IS[employer] REPRESENTATIVE - 11/28/2024 10:20 AM ESTAssociated Order(s): Anoscopy History Of Present Illness Mojgan Pérez is a 69 y.o. female who has Myeloma and being treated who is presenting with hemorrhoidal pain and bleeding. Platelet and WBC counts are very low Chemotherapy 1/month injection She has been having anal pain and bleeding off and on for the past year. The pain is more of an achy and burning pain to the anus. The blood is only on the tissue. She will have a soft BM every day to every other day. She takes 2 Colace daily (over the past 5 months) and that works in keeping her stools soft. Prior, she would have a BM every other day. She can feel the external hemorrhoids. No c/o any accidents or leakage of stool. Colonoscopy 4 years ago and had a polyp removed-negative per pt. NO hx of any perianal surgeries. Past Medical History She has a past medical history of Aortic aneurysm (CMS-HCC), Aortic stenosis, COPD (chronic obstructive pulmonary disease) (Multi), Diabetes mellitus (Multi), Fibromyalgia, GERD (gastroesophageal reflux disease), HLD (hyperlipidemia), Hypertension, Iron deficiency, Liver disease, KAPADIA (nonalcoholic steatohepatitis), and Neuropathy. Surgical History She has a past surgical history that includes Appendectomy; Cholecystectomy; Hysterectomy; Hernia repair; Carpal tunnel release (Bilateral); Elbow surgery (Bilateral); and Knee arthroscopy w/ meniscal repair (Bilateral). Social History She reports that she quit smoking about 21 years ago. Her smoking use included cigarettes. She started smoking about 48 years ago. She has a 80.2 pack-year smoking history. She has been exposed to tobacco smoke. She has never used smokeless tobacco. She reports that she does not currently use alcohol. She reports that she does not use drugs. Family History Family History Problem Relation Name Age of Onset Cancer Mother Coronary artery disease Father Cancer Father Breast cancer Sister Lung cancer Brother Leukemia Maternal Grandmother Cancer Paternal Grandmother Allergies Latex, Tetracyclines, Adhesive, Amoxicillin, Antazoline, Avelox [moxifloxacin], Diclofenac, and Erythromycin Review of Systems Gastrointestinal: Positive for anal bleeding and rectal pain. All other systems reviewed and are negative. Physical Exam Exam conducted with a malt roaster present. Constitutional: Appearance: Normal appearance. HENT: Head: Normocephalic and atraumatic. Pulmonary: Effort: Pulmonary effort is normal. Musculoskeletal: General: Normal range of motion. Skin: General: Skin is warm and dry. Neurological: General: No focal deficit present. Mental Status: She is alert and oriented to person, place, and time. Psychiatric: Mood and Affect: Mood normal. Behavior: Behavior normal. Anoscopy Date/Time: 11/28/2024 1:22 PM Performed by: MATT Dao Authorized by: MATT Dao Consent: Consent obtained: Verbal Consent given by: Patient Risks, benefits, and alternatives were discussed: yes [place] protocol: Procedure explained and questions answered to patient or proxy's satisfaction: yes Patient identity confirmed: Verbally with patient Post-procedure details: Procedure completion: Tolerated Comments: E has small circumferential external hemorrhoids that are tender. No active bleeding. Limited LYLA, d/t pain but you can feel the enlarged internal hemorrhoids. Last Recorded Vitals BP 82/52 Pulse 73 Temp 36.4 C (97.5 F) (Temporal) Wt 80.3 kg (177 lb) Assessment/Plan Mojgan has anal pain and will start using Hydrocortisone suppositories BID for 2 weeks. She will start taking Benefiber daily to keep her stools more soft. She will continue to increase her fiber and water intake as well. She will call with any issues and will follow up in 6 weeks if not better. 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 November 16, 2024 10:10am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)chronicJanuary 2024 10:10amMultiple myelomachronicJanuary 2024 10:10am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chronicJanuary 2024 10:10amBilateral leg painacuteFebruary 2024 10:04amHemorrhoids, complicatedacuteFebruary 2024 10:04amHepatocellular carcinomaacuteFebruary 2024 10:04amHypomagnesemiaacuteFebruary 2024 10:04amIron deficiency anemiaacuteFebruary 2024 10:04amRefractory chronic coughacuteFebruary 2024 10:04amBone marrow hypocellularitychronicFebruary 2024 10:04am Cancer-related painchronicFebruary 2024 10:04amEncounter for antineoplastic immunotherapychronicFebruary 2024 10:04amEncounter for coordination of complex carechronicFebruary 2024 10:04am 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chronicFebruary 2024 10:04am 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)chronicFebruary 2024 10:04amMultiple myelomachronicFebruary 2024 10:04am 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chronicFebruary 2024 10:04amAcute right hip painacuteApril 2024 7:44amHematuriaacuteApril 2024 7:44am Acute thoracic back painchronicApril 2024 7:44amBone marrow hypocellularity chronicApril 2024 7:44amCancer-related painchronicApril 2024 7:44am Chemotherapy-induced neutropeniachronicApr2024 7:44amChronic copper deficiencychronicApril 2024 7:44amDegenerative cervical spinal stenosis chronicApril 2024 7:44amEncounter for antineoplastic immunotherapychronic Nancy 2024 7:44amEncounter for chemotherapy managementchronicApril 2024 7:44amEncounter for coordination of complex carechronicApril 2024 7:44amHistory of 2019 novel coronavirus disease (COVID-19)chronicApril 2024 7:44am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chronicApril 2024 7:44amIron deficiencychronicApril 2024 7:44am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)chronicApril 2024 7:44amMultiple myeloma chronicApril 2024 7:44amNeutropenia, unspecifiedchronicApril 2024 7:44amObesitychronicApril 2024 7:44am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 chronicApril 2024 7:44amFrontal sinusitisresolvedApril 2024 7:44am Diabetes mellitusinactiveApril 2024 7:44amFibromyalgiainactiveApril 2024 7:44amSmoldering multiple myeloma (SMM)inactiveApril 2024 7:44am [facility] Work Phone: 1(319) 576-726001-15-2025 Evaluation note* Diagnosis Onset Date Resolution Status Admit Date Hemorrhoids, complicated acuteJanuary 2024 10:10amHepatocellular carcinomaacuteJanuary 2024 10:10amRefractory chronic coughacuteJanuary 2024 10:10amBone marrow hypocellularitychronicJanuary 2024 10:10amCancer-related painchronic November 16, 2024 10:10amEncounter for antineoplastic immunotherapychronic November 16, 2024 10:10amEncounter for coordination of complex carechronic November 16, 2024 10: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 November 16, 2024 10:10am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)chronicJanuary 2024 10:10amMultiple myelomachronicJanuary 2024 10:10am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chronicJanuary 2024 10:10amBilateral leg painacuteFebruary 2024 10:04amHemorrhoids, complicatedacuteFebruary 2024 10:04amHepatocellular carcinomaacuteFebruary 2024 10:04amHypomagnesemiaacuteFebruary 2024 10:04amIron deficiency anemiaacuteFebruary 2024 10:04amRefractory chronic coughacuteFebruary 2024 10:04amBone marrow hypocellularitychronicFebruary 2024 10:04am Cancer-related painchronicFebruary 2024 10:04amEncounter for antineoplastic immunotherapychronicFebruary 2024 10:04amEncounter for coordination of complex carechronicFebruary 2024 10:04am 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chronicFebruary 2024 10:04am 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)chronicFebruary 2024 10:04amMultiple myelomachronicFebruary 2024 10:04am 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chronicFebruary 2024 10:04amAcute right hip painacuteApril 2024 7:44amHematuriaacuteApril 2024 7:44am Acute thoracic back painchronicApril 2024 7:44amBone marrow hypocellularity chronicApril 2024 7:44amCancer-related painchronicApril 2024 7:44am Chemotherapy-induced neutropeniachronicApril 2024 7:44amChronic copper deficiencychronicApril 2024 7:44amDegenerative cervical spinal stenosis chronicApril 2024 7:44amEncounter for antineoplastic immunotherapychronic January 31, 2025 7:44amEncounter for chemotherapy managementchronicApril 2024 7:44amEncounter for coordination of complex carechronicApril 2024 7:44amHistory of 2019 novel coronavirus disease (COVID-19)chronicApril 2024 7:44am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chronicApril 2024 7:44amIron deficiencychronicApril 2024 7:44am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)chronicApril 2024 7:44amMultiple myeloma chronicApril 2024 7:44amNeutropenia, unspecifiedchronicApril 2024 7:44amObesitychronicApril 2024 7:44am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 chronicApril 2024 7:44amFrontal sinusitisresolvedApril 2024 7:44am Diabetes mellitusinactiveApril 2024 7:44amFibromyalgiainactiveApril 2024 7:44amSmoldering multiple myeloma (SMM)inactiveApril 2024 7:44am Bilateral leg painacuteApril 2024 10:32amHemorrhoids, complicatedacuteApril 2024 10:32amHepatocellular carcinomaacuteApril 2024 10:32amIron deficiency anemiaacuteApril 2024 10:32amBone marrow hypocellularitychronic February 03, 2025 10:32amCancer-related painchronicApril 2024 10:32am Encounter for antineoplastic immunotherapychronicApril 2024 10:32am Encounter for coordination of complex carechronicApril 2024 10:32am 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chronicApril 2024 10:32am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)chronicApril 2024 10:32amMultiple myelomachronicApril 2024 10:32am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chronicApril 2024 10:32amCancer associated painacuteApril 2024 2:11pmHepatocellular carcinomaacuteApril 2024 2:11pmNauseaacute February 14, 2025 2:11pm [facility] Work Phone: 1(369) 331-876501-15-2025 Telephone encounter Note* Telephone Encounter - Fabiola Palumbo NP - 11/16/2024 11:34 AM EST Sent [facility] [id number] Miscellaneous Notes* Telephone Encounter - Fabiola Palumbo NP - 11/16/2024 11:34 AM EST Sent documented in this encounterLiberty [id number] Evaluation note* Diagnosis Onset Date Resolution Status Admit Date Abnormal liver ultrasound acuteDecember 2023 2:50pmRefractory chronic coughacuteDecember 2023 2:50pmBone marrow hypocellularitychronicDecember 2023 2:50pmCancer-related painchronicDecember 2023 2:50pmEncounter for antineoplastic immunotherapy chronicDecember 2023 2:50pmEncounter for coordination of complex care chronicDecember 2023 2:50pm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 chronicDecember 2023 2:50pm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)chronicDecember 2023 2:50pmMultiple myelomachronicDecember 2023 2:50pm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chronicDecember 2023 2:50pmChronic pain syndromeacuteDecember 2023 10:23amMultiple myelomaacute Federico 2023 10:23amHemorrhoids, complicatedacuteJanuary 2024 10:10amHepatocellular carcinomaacuteJanuary 2024 10:10amRefractory chronic coughacuteJanuary 2024 10:10amBone marrow hypocellularitychronicJanuary 2024 10:10amCancer-related painchronicJanuary 2024 10:10amEncounter for antineoplastic immunotherapychronicJanuary 2024 10:10amEncounter for coordination of complex carechronicJanuary 2024 10:10am 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 2024 10:10am 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)chronicJanuary 2024 10:10amMultiple myelomachronicJanuary 2024 10:10am 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chronicJanuary 2024 10:10amAcute right hip painacuteFebruary 2024 1:54pmHematuriaacuteFebruary 2024 1:54pmAcute thoracic back painchronicFebruary 2024 1:54pmBone marrow hypocellularitychronicFebruary 2024 1:54pmCancer-related painchronic February 2024 1:54pmChemotherapy-induced neutropeniachronicFebruary 2024 1:54pmChronic copper deficiencychronicFebruary 2024 1:54pmDegenerative cervical spinal stenosischronicFebruary 2024 1:54pmEncounter for antineoplastic immunotherapychronicFebruary 2024 1:54pmEncounter for chemotherapy managementchronicFebruary 2024 1:54pmEncounter for coordination of complex carechronicFebruary 2024 1:54pmHistory of 2019 novel coronavirus disease (COVID-19)chronicFebruary 2024 1:54pm 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chronicFebruary 2024 1:54pm Iron deficiencychronicFebruary 2024 1:54pm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)chronicFebruary 2024 1:54pmMultiple myeloma chronicFebruary 2024 1:54pmNeutropenia, unspecifiedchronicFebruary 2024 1:54pmObesitychronicFebruary 2024 1:54pm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chronicFebruary 2024 1:54pmFrontal sinusitisresolvedFebruary 2024 1:54pmDiabetes mellitusinactiveFebruary 2024 1:54pmFibromyalgia inactiveFebruary 2024 1:54pmSmoldering multiple myeloma (SMM)inactive February 2024 1:54pm [facility] Work Phone: 1(302) 190-502012-04-2024 Evaluation note* Diagnosis Onset Date Resolution Status Admit Date Abnormal liver ultrasound acuteDecember 2023 2:50pmRefractory chronic coughacuteDecember 2023 2:50pmBone marrow hypocellularitychronicDecember 2023 2:50pmCancer-related painchronicDecember 2023 2:50pmEncounter for antineoplastic immunotherapy chronicDecember 2023 2:50pmEncounter for coordination of complex care chronicDecember 2023 2:50pm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 chronicDecember 2023 2:50pm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)chronicDecember 2023 2:50pmMultiple myelomachronicDecember 2023 2:50pm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chronicDecember 2023 2:50pmChronic pain syndromeacuteDecemb2023 10:23amMultiple myelomaacute October 21, 2024 10:23amHemorrhoids, complicatedacuteJanuary 2024 10:10amHepatocellular carcinomaacuteJanuary 2024 10:10amRefractory chronic coughacuteJanuary 2024 10:10amBone marrow hypocellularitychronicJanuary 2024 10:10amCancer-related painchronicJanuary 2024 10:10amEncounter for antineoplastic immunotherapychronicJanuary 2024 10:10amEncounter for coordination of complex carechronicJanuary 2024 10:10am 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 2024 10:10am 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)chronicJanuary 2024 10:10amMultiple myelomachronicJanuary 2024 10:10am 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chronicNovuary 2024 10:10am Hemorrhoids, complicatedacuteFebruary 2024 10:04amHepatocellular carcinoma acuteFebruary 2024 10:04amRefractory chronic coughacuteFebruary 2024 10:04amBone marrow hypocellularitychronicFebruary 2024 10:04amCancer- related painchronicFebruary 2024 10:04amEncounter for antineoplastic immunotherapychronicFebruary 2024 10:04amEncounter for coordination of complex carechronicFebruary 2024 10: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 2024 10:04am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)chronicFebruary 2024 10:04amMultiple myelomachronicFebruary 2024 10:04am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 chronicFebruary 2024 10:04amAcute right hip painacuteFebruary 2024 11:13amHematuriaacuteFebruary 2024 11:13amAcute thoracic back painchronic February 2024 11:13amBone marrow hypocellularitychronicFebruary 2024 11:13amCancer-related painchronicFebruary 2024 11:13amChemotherapy- induced neutropeniachronicFebruary 2024 11:13amChronic copper deficiency chronicFebruary 2024 11:13amDegenerative cervical spinal stenosischronic December 29, 2024 11:13amEncounter for antineoplastic immunotherapychronic December 29, 2024 11:13amEncounter for chemotherapy managementchronicFebruary 2024 11:13amEncounter for coordination of complex carechronicFebruary 2024 11:13amHistory of 2019 novel coronavirus disease (COVID-19)chronic December 29, 2024 11:13am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chronic December 29, 2024 11:13amIron deficiencychronicFebruary 2024 11:13am 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)chronicFebruary 2024 11:13amMultiple myelomachronicFebruary 2024 11:13amNeutropenia, unspecifiedchronicFebruary 2024 11:13amObesitychronicFebruary 2024 11:13am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chronicFebruary 2024 11:13am Frontal sinusitisresolvedFebruary 2024 11:13amDiabetes mellitusinactive December 29, 2024 11:13amFibromyalgiainactiveFebruary 2024 11:13am Smoldering multiple myeloma (SMM)inactiveFebruary 2024 11:13am [facility] Work Phone: 1(173) 474-419811-18-2024 [facility] History of Present illness Narrative* Lisette Perkins APRN-TONYA - 09/06/2024 1:00 PM EST Patient ID: Mojgan Pérez is a 68 y.o. female. Referring Physician: ONC Dr Prater Primary Care Provider: Fabiola Marinelli MD Assessment/Plan 09/06/24 No new complaints. Cough unchanged. Myeloma restaging labs suppressed light chains, immunoglobulins. No M-protein. Overall, platelets improved. C9 D21. Teclistimab q3w. IgG level <400. Duefor IVIG next visit. Recommend seasonal influenza, updated Covid and RSV vaccines. Anticipate treatment transition to [facility] with Dr Marinelli. Oncology History Overview Note Referral from Dr. Marinelli at [facility]. MGUS since 2005 Followed at [facility] by Dr. Kumari, and [...] both hips 800 cGy 04/10/2020 Velcade dex Jennifer 07/31/2021 Radiation to soff tissue area of hip 3000 cGray 08/30/2021 Jennifer Rev 12/2021 Not a candidate for transplant (pancytopenia/liver cirrhosis) 12/2021 Jennifer Pomalidomide ->marrow suppression 07/2022 carfilzomib cyclophosphamide -> marrow suppression 05/24 Bmbx small percentage of plasma cells; hypocellular. Since the marrow was obtained in what waspossibly radiation field this may not be entirely premium service representative. Also clonal evolution in the marrow with the most recent marrow showing additional cytogenetic abnormalities. 07/23/23 Restaging labs: free lambda light chain 35.95 mg/dL (up from 5.65 mg/dL in December 2022) and free-lambda M-spike of 0.1 g/dL Myeloma responding (lambda chains <0.17) Teclistamab ramp-up (08/04-08/06-08/09/23): complicated grade-I CRS (fevers) and ICANS (suzanna ICE score 8/10) C2D1 teclistamab weekly (08/17/23, 08/25/23, 09/01/23, 09/08/23). Changed threshold notification forplt <35. 09/08/23 K/L ratio 0.01; IgG 338. SPEP pending. C3D1 teclisitimab weekly beginning 09/15/23- held due to Covid. 09/08/23 SPEP -no M protein 09/29/23 K/L chain ratio unable to calculate 11/17/23 IgG 526, IgA <7, IgM <5. SPEP and K/L chain ratio suppressed 2nd teclistamab ramp up C1D1 started on 11/18/23; then 11/20/23 and 11/22/23. C2D1 11/27/23 C2D8 12/08/23 (delayed 10 days to resume appt on Tuesdays) C2D15 12/15/23 C2D22 and 28; C3D1 held due to Covid. C3D8 01/12/24 C3D15 01/19/24 C3D22 and D28 held due to persistent cough. C4D1 Restart. 02/2024 restart teclistamab after long interrupton for COVID 02/23/24 excellent response - move to every other week. 05/24/24 Ongoing response myeloma restaging labs; transition to every 3 weeks Multiple myeloma Multiple myeloma not having achieved remission (Multi) PMH Aortic aneurysm Aortic stenosis COPD Diabetes Fibromalgia GERD HLD HTN Iron deficiency KAPADIA/liver disease Neuropathy PSH Appendectomy Carpel tunnel Cholecystectomy Elbow surgery Hernia repair Hysterectomy Arthroscopic knee Infection prophylaxis VZV: Acyclovir 400 mg PO BID PJP: Trimethoprim-sulfamethoxazole 800-160 mg PO 3x weekly Hypogammaglobulinemia IVIG given 09/22/23, 10/29/23 ([facility]) 12/08/23 01/12/24 02/09/24 03/08/24 04/05/24 05/24/34. Cont monthlyprn IgG <400. Not needed in July and August. 09/06 IgG 312. Plan to give IVIG with next appt. Recent infections 09/12/23 COVID 12/2023 COVID 04/11/24 (Admission locally) Abdominal pain, A-fib and low BP, found to have sepsis + fluid overloadand treated with antibiotics and diuretics. 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 Neuropathy Cont gabapentin and Cymbalta. Health maintenance Cont to follow with PCP. Recommend seasonal influenza, updated Covid and RSV vaccines. Subjective History of Present Illness: Mrs Pérez presents to the c[facility]linic today with her daughter. No new complaints. Energy level so-so. Appetite better. 188-> 181. Varies some. 08/25 Appt with surgeon re hemorrhoids. Told surgery not an option and to cont current management. Hemorrhoid discomfort varies. Ongoing stable bothersome chronic cough. Occas greenish sputum with chunks . Cont with inhalers asper pulmonology. Review of Systems Constitutional: Positive for fatigue. HENT: Negative. Eyes: Negative. Respiratory: Positive for cough. Cardiovascular: Negative. Gastrointestinal: Positive for constipation (Sometimes) and nausea (Occas.). Endocrine: Negative. Genitourinary: Negative. Musculoskeletal: Negative. Legs and L hip. Skin: Negative. Neurological: Positive for numbness (Feet and hands, stable.). Hematological: Bruises/bleeds easily. Psychiatric/Behavioral: Negative. Objective Physical Exam HENT: Head: Normocephalic and atraumatic. Mouth/Throat: Mouth: Mucous membranes are moist. Eyes: Pupils: Pupils are equal, round, and reactive to light. Cardiovascular: Rate and Rhythm: Normal rate and regular rhythm. Pulmonary: Effort: Pulmonary effort is normal. Breath sounds: Normal breath sounds. Abdominal: General: Abdomen is flat. Bowel sounds are normal. Palpations: Abdomen is soft. Musculoskeletal: General: Normal range of motion. Cervical back: Normal range of motion. Skin: General: Skin is warm and dry. Comments: Mediport site clean. Neurological: General: No focal deficit present. Mental Status: She is alert and oriented to person, place, and time. Psychiatric: Mood and Affect: Mood normal. RTC 09/[address] Lindquist documented in this [facility] Work Phone: 1(270) 543-790610-25-2024 Evaluation note* Diagnosis Onset Date Resolution Status Admit Date Cancer-related pain chronicOctober 2023 11:19amMultiple myelomachronicOctober 2023 11:19am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)chronic September 14, 2024 9:39amRefractory chronic coughacuteNovember 2023 9:52amBone marrow hypocellularitychronicNovember 2023 9:52amCancer-related painchronicNovember 2023 9:52amChronic copper deficiencychronicNovember 2023 9:52amEncounter for antineoplastic immunotherapychronicNovember 2023 9:52amEncounter for coordination of complex carechronicNovember 2023 9: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 2023 9:52am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)chronic November 2023 9:52amMultiple myelomachronicNovember 2023 9:52am 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chronicNovember 2023 9:52amAbnormal liver ultrasoundacuteDecember 2023 2:50pmRefractory chronic coughacute October 05, 2024 2:50pmBone marrow hypocellularitychronicDecember 2023 2:50pmCancer-related painchronicDecember 2023 2:50pmEncounter for antineoplastic immunotherapychronicDecember 2023 2:50pmEncounter for coordination of complex carechronicDecember 2023 2:50pm 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chronicDecember 2023 2:50pm 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)chronicDecember 2023 2:50pmMultiple myelomachronicDecember 2023 2:50pm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chronicDecember 2023 2:50pmChronic pain syndromeacute October 21, 2024 10:23amMultiple myelomaacuteDecember 2023 10:23amAcute right hip painacuteJanuary 2024 9:16amHematuriaacuteJanuary 2024 9:16amAcute thoracic back painchronicJanuary 2024 9:16amBone marrow hypocellularitychronicJanuary 2024 9:16amCancer-related painchronicJanuary 2024 9:16amChemotherapy-induced neutropeniachronicJanuary 2024 9:16amChronic copper deficiencychronicJanuary 2024 9:16amDegenerative cervical spinal stenosischronicJanuary 2024 9:16amEncounter for antineoplastic immunotherapychronicJanuary 2024 9:16amEncounter for chemotherapy managementchronicJanuary 2024 9:16amEncounter for coordination of complex carechronicJanuary 2024 9:16amHistory of 2019 novel coronavirus disease (COVID-19)chronicJanuary 2024 9:16am 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 2024 9:16am Iron deficiencychronicJanuary 2024 9:16am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)chronicJanuary 2024 9:16amMultiple myeloma chronicJanuary 2024 9:16amNeutropenia, unspecifiedchronicJanuary 2024 9:16amObesitychronicJanuary 2024 9:16am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chronicJanuary 2024 9:16amFrontal sinusitisresolvedJanuary 2024 9:16amDiabetes mellitusinactiveJanuary 2024 9:16amFibromyalgia inactiveJanuary 2024 9:16amSmoldering multiple myeloma (SMM)inactive November 16, 2024 9:16amAbnormal liver ultrasoundacuteJanuary 2024 10:10amRefractory chronic coughacuteJanuary 2024 10:10amBone marrow hypocellularitychronicJanuary 2024 10:10amCancer-related painchronic November 16, 2024 10:10amEncounter for antineoplastic immunotherapychronic November 16, 2024 10:10amEncounter for coordination of complex carechronic November 16, 2024 10: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 November 16, 2024 10:10am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)chronicJanuary 2024 10:10amMultiple myelomachronicJanuary 2024 10:10am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chronicJanuary 2024 10:10am [facility] Work Phone: 1(123) 568-326410-24-2024 History of Present illness Narrative* Sheila Tovar Hernandoaric, - 08/25/2024 3:00 PM EDT Images from the original note were not included. Mojgan Pérez 1955 Mojgan Pérez is a 68 y.o. female presents with chief complaint of Consult for painful hemorrhoids HPI: HPI Mojgan states she has clusters of hemorrhoids. She has multiple myeloma and takes percocet which causes constipation. She takes stool softeners and Metamucil but has had a horrible cough which puts pressure on her hemorrhoids and makes them hurt. The hemorrhoids sometimes bleed, and hurt. She does run low platelets (70K) and her WBC is around 2. SUBJECTIVE: MEDICATIONS: ALLERGIES Current Outpatient Medications Medication Instructions acyclovir (ZOVIRAX) 400 mg, 2 times daily albuterol 2.5 mg, Nebulization, Every 6 hours PRN atorvastatin (LIPITOR) 40 mg, Oral, Daily, TAKE 1 TABLET BY MOUTH EVERY DAY FOR 90 DAYS Ttphwbj-Gbqujnmjqkr-Bjlgqcmmwm (Breztri Aerosphere) 160-9-4.8 MCG/ACT aerosol 2 puffs, 2 times daily carvedilol (COREG) 12.5 mg, Oral, 2 times daily with meals cetirizine (ZYRTEC) 10 mg, Oral, Nightly cholecalciferol (Vitamin D-3) 125 MCG (5000 UT) capsule TAKE 1 CAPSULE BY MOUTH EVERY DAY FOR 90 DAYS Cyanocobalamin (Vitamin B-12) 1000 MCG sublingual tablet DISSOLVE 1 TABLET UNDER THE TONGUE ONCE A DAY cyclobenzaprine (Flexeril) 5 MG tablet Every 24 hours DULoxetine (CYMBALTA) 60 mg, Oral, Daily, Do not crush or chew. EPINEPHrine (EPIPEN) 0.3 mg, Injection, Once, use as directed for allergic reaction and then call 911 fluticasone (Flonase) 50 MCG/ACT nasal spray 1 spray, Each Nostril, Every 24 hours furosemide (LASIX) 20 mg, Oral, Daily gabapentin (Neurontin) 400 MG capsule 2 times daily glucose blood (FREESTYLE LITE) test strip Use as instructed Lancets 33G misc 1 each, Does not apply, Daily melatonin 2 mg, Nightly metFORMIN XR (GLUCOPHAGE-XR) 500 mg, Oral, Daily naloxone (NARCAN) 4 mg OLANZapine (ZYPREXA) 2.5 mg, Nightly ondansetron ODT (ZOFRAN-ODT) 8 mg, Every 8 hours PRN oxyCODONE (Roxicodone) 10 MG immediate release tablet TAKE 1 TABLET BY MOUTH FOUR TIMES A DAY NEEDED [START ON 09/05/2024] Ozempic (0.25 or 0.5 MG/DOSE) 0.5 mg, Subcutaneous, Weekly Ozempic (0.25 or 0.5 MG/DOSE) 0.25 mg, Subcutaneous, Weekly pantoprazole (PROTONIX) 20 mg, Oral, 2 times daily, Do not crush, chew, or split. potassium chloride ER (Micro-K) 10 MEQ ER capsule 10 mEq, Daily spironolactone (ALDACTONE) 50 mg, Oral, Daily sulfamethoxazole-trimethoprim (Bactrim DS) 800-160 MG per tablet TAKE 1 TABLET BY MOUTH EVERY THURSDAY, THURSDAY AND THURSDAY SUMAtriptan (IMITREX) 50 mg, Once as needed Teclistamab-cqyv 30 MG/3ML solution Allergies Allergen Reactions Latex Unknown, Hives and Rash Tetracycline Unknown, Hives and Rash Antazoline Itching Other Reaction(s): Unknown Diclofenac Unknown and Hives Diclofenac Sodium Hives Doxycycline Unknown and Swelling Erythromycin Hives Erythromycin Base Hives Other Dizziness Other Reaction(s): dizziness Quinolones Hives Other Reaction(s): Hives, Unknown Reaction Other Reaction(s): Unknown Reaction Wound Dressing Adhesive Unknown Amoxicillin Swelling and Rash Moxifloxacin Hives, Rash and Unknown PAST MEDICAL HISTORY: SOCIAL HISTORY SURGICAL HISTORY: Past Medical History: Diagnosis Date Acid reflux Acute right-sided low back pain with right-sided sciatica Aneurysm of ascending aorta (CMS/HCC) Anxiety Appendicitis Arthritis Atherosclerosis of abdominal aorta (CMS/HCC) Chicken pox Cholelithiasis Cirrhosis (CMS/HCC) nonalcoholic COPD (chronic obstructive pulmonary disease) (CMS/HCC) COPD exacerbation CTS (carpal tunnel syndrome) Depression (CMS/HCC) Diabetes (CMS/HCC) Endometriosis Family history of cancer Family history of colon cancer Fibromyalgia Hematoma Hemorrhoids History of being hospitalized 04/2019 [facility] 4.1 CM, CIRRHOSIS OF THE LIVER History of smoking Hyperlipidemia (CMS/HCC) Hypertension (CMS/HCC) Leukopenia Moderate persistent asthma with exacerbation (CMS/HCC) Morbid obesity (CMS/HCC) Myeloma (CMS/HCC) with thrombocytopenia Neuropathy Osteoarthrosis Rectal bleeding Rectal fissure Rectal pain Thoracic aortic aneurysm (CMS/HCC) Thrombocytopenia (CMS/HCC) UTI (urinary tract infection) 12/2022 Visual loss w/ corrective lenses Social History Tobacco Use Smoking status: Former Types: Cigarettes Smokeless tobacco: Former Substance Use Topics Alcohol use: Never Comment: cafffeine intake: 1-2 cups per day Drug use: Never Past Surgical History: Procedure Laterality Date APPENDECTOMY BONE MARROW BIOPSY several CARPAL TUNNEL RELEASE CHOLECYSTECTOMY COLONOSCOPY 05/01/2015, completed by Dr. Cody 09/15/2018 ELBOW SURGERY HERNIA REPAIR HYSTERECTOMY KNEE SURGERY Bilateral knee arthroscopy TENDON REPAIR WRIST SURGERY FAMILY HISTORY Family History Problem Relation Name Age of Onset Hypertension Mother Heart disease Mother Cancer Mother Hypertension Father Heart disease Father Cancer Father Hypertension Son No Known Problems Daughter Cancer Sibling REVIEW OF SYMPTOMS: Review of Systems Constitutional: Negative for diaphoresis and unexpected weight change. HENT: Negative for hearing loss, tinnitus and voice change. Respiratory: Positive for shortness of breath (COPD). Cardiovascular: Negative for chest pain and palpitations. Gastrointestinal: Positive for nausea. Musculoskeletal: Positive for arthralgias. Neurological: Negative for dizziness, seizures and headaches. All other systems reviewed and are negative. Hematological: Negative for adenopathy. Bruises/bleeds easily. OBJECTIVE: Visit Vitals Ht 5' 2 Wt 188 lb LMP (LMP Unknown) BMI 34.39 kg/m OB Status Postmenopausal Smoking Status Former BSA 1.93 m Physical Exam HENT: Head: Normocephalic. Cardiovascular: Rate and Rhythm: Normal rate and regular rhythm. Pulmonary: Effort: Pulmonary effort is normal. Breath sounds: Normal breath sounds. Abdominal: General: Abdomen is flat. Bowel sounds are normal. Palpations: Abdomen is soft. Genitourinary: Comments: She has circumferential anal skin tags, she has pain on digital exam with good sphincter tone and no masses palpable. I chose not to scope her due to the rectal discomfort. No obvious bleeding noted. Skin: General: Skin is warm and dry. Neurological: Mental Status: She is alert. ASSESSMENT AND PLAN: Assessment/Plan Problem List Items Addressed This Visit Chronic obstructive pulmonary disease (CMS/HCC) - Primary Multiple myeloma not having achieved remission (CMS/HCC) 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) (CMS/HCC) Bleeding hemorrhoids Lymphopenia Thrombocytopenia (CMS/HCC) Due to her leukopenia and thrombocytopenia as well as COPD she is not a candidate for an elective hemorrhoidectomy. We discussed conservative measure for treatment, and I'll see her PRN. documented in this [facility]10-22-2024 Telephone encounter Note* Telephone Encounter - Fabiola Palumbo NP - 08/23/2024 2:31 PM EDT Labs? [facility] [place] ; [id number] Miscellaneous Notes* Telephone Encounter - Fabiola Palumbo NP - 08/23/2024 2:31 PM EDT Labs? [facility] ; sent documented in this [facility]10-22-2024 History of Present illness Narrative* Fabiola Palumbo NP - 08/23/2024 1:40 PM EDT SUBJECTIVE Mojgan Pérez is a 68 y.o. female who presents for a chronic illness management visit. Patient isconcerned about her chronic cough and states that her father had TB. She would like to be tested for this. CURRENT MEDICATIONS Current Outpatient Medications: acyclovir (Zovirax) 400 MG tablet, Take 400 mg by mouth in the morning and 400 mg before bedtime., Disp: , Rfl: albuterol (2.5 MG/3ML) 0.083% nebulizer solution, Take 3 mL (2.5 mg) by nebulization every 6 (six) hours if needed for wheezing, Disp: 75 mL, Rfl: 2 atorvastatin (Lipitor) 40 MG tablet, Take 1 tablet (40 mg) by mouth Daily TAKE 1 TABLET BY MOUTH EVERY DAY FOR 90 DAYS, Disp: 90 tablet, Rfl: 3 Xohynmc-Cdodepkvyjl-Sgzanufknz (Breztri Aerosphere) 160-9-4.8 MCG/ACT aerosol, Inhale 2 puffs in the morning and 2 puffs before bedtime., Disp: , Rfl: carvedilol (Coreg) 12.5 MG tablet, Take 1 tablet (12.5 mg) by mouth in the morning and 1 tablet (12.5 mg) in the evening. Take with meals., Disp: 60 tablet, Rfl: 11 cetirizine (ZyrTEC) 10 MG tablet, Take 1 tablet (10 mg) by mouth at bedtime, Disp: 30 tablet, Rfl: 1 cholecalciferol (Vitamin D-3) 125 MCG (5000 UT) capsule, TAKE 1 CAPSULE BY MOUTH EVERY DAY FOR 90 DAYS, Disp: , Rfl: Cyanocobalamin (Vitamin B-12) 1000 MCG sublingual tablet, DISSOLVE 1 TABLET UNDER THE TONGUE ONCE ADAY, Disp: , Rfl: cyclobenzaprine (Flexeril) 5 MG tablet, 1 (one) time each day at the same time., Disp: , Rfl: DULoxetine (Cymbalta) [address] capsule, Take 1 capsule (60 mg) by mouth Daily Do not crush or chew., Disp: 90 capsule, Rfl: 3 EPINEPHrine (Epipen) 0.3 MG/0.3ML injection syringe, Inject 0.3 mL (0.3 mg) as directed 1 (one) time for 1 dose use as directed for allergic reaction and then call 911, Disp: 0.3 mL, Rfl: 1 fluticasone (Flonase) 50 MCG/ACT nasal spray, Administer 1 spray into each nostril 1 (one) time each day at the same time, Disp: , Rfl: furosemide (Lasix) 20 MG tablet, TAKE 1 TABLET BY MOUTH EVERY DAY, Disp: 90 tablet, Rfl: 1 gabapentin (Neurontin) 400 MG capsule, 2 (two) times a day, Disp: , Rfl: glucose blood (FREESTYLE LITE) test strip, Use as instructed, Disp: 100 each, Rfl: 3 Lancets 33G misc, 1 each Daily, Disp: 100 each, Rfl: 3 melatonin tablet, Take 2 mg by mouth at bedtime, Disp: , Rfl: metFORMIN XR (Glucophage-XR) 500 MG 24 hr tablet, Take 1 tablet (500 mg) by mouth Daily, Disp: 90 tablet, Rfl: 3 naloxone (Narcan) 4 mg/0.1 mL nasal spray, Administer 4 mg into affected nostril(s), Disp: , Rfl: OLANZapine (ZyPREXA) 2.5 MG tablet, Take 2.5 mg by mouth at bedtime, Disp: , Rfl: ondansetron ODT (Zofran-ODT) 8 MG disintegrating tablet, Take 8 mg by mouth every 8 (eight) hours if needed for nausea or vomiting., Disp: , Rfl: oxyCODONE (Roxicodone) 10 MG immediate release tablet, TAKE 1 TABLET BY MOUTH FOUR TIMES A DAY NEEDED, Disp: , Rfl: potassium chloride ER (Micro-K) 10 MEQ ER capsule, Take 10 mEq by mouth in the morning., Disp: , Rfl: spironolactone (Aldactone) 50 MG tablet, TAKE 1 TABLET BY MOUTH EVERY DAY, Disp: 90 tablet, Rfl: 1 sulfamethoxazole-trimethoprim (Bactrim DS) 800-160 MG per tablet, TAKE 1 TABLET BY MOUTH EVERY THURSDAY, THURSDAY AND THURSDAY, Disp: , Rfl: SUMAtriptan (Imitrex) 50 MG tablet, Take 50 mg by mouth 1 (one) time if needed., Disp: , Rfl: Teclistamab-cqyv 30 MG/3ML solution, , Disp: , Rfl: pantoprazole (Protonix) 20 MG EC tablet, Take 1 tablet (20 mg) by mouth in the morning and 1 tablet(20 mg) before bedtime. Do not crush, chew, or split.., Disp: 180 tablet, Rfl: 1 [START ON 09/05/2024] Semaglutide,0.25 or 0.5MG/DOS, (Ozempic, 0.25 or 0.5 MG/DOSE,) 2 MG/3ML solution pen-injector, Inject 0.5 mg under the skin 1 (one) time per week Do not start before September 05, 2024., Disp: 3 mL, Rfl: 0 Semaglutide,0.25 or 0.5MG/DOS, (Ozempic, 0.25 or 0.5 MG/DOSE,) 2 MG/3ML solution pen-injector, Inject 0.25 mg under the skin 1 (one) time per week for 14 days, Disp: 3 mL, Rfl: 0 RECENT VITAL SIGNS 02/22/2024 10:03 AM 03/11/2024 2:22 PM 03/31/2024 2:16 PM 04/28/2024 1:47 PM 05/30/2024 11:19 AM 06/20/2024 2:56 PM 08/23/2024 1:59 PM Vitals BMI 31.9 kg/m2 31.83 kg/m2 30.43 kg/m2 31.83 kg/m2 28.5 kg/m2 28.72 kg/m2 33.29 kg/m2 BSA (m2) 1.86 m2 1.86 m2 1.82 m2 1.86 m2 1.76 m2 1.76 m2 1.9 m2 Systolic 124 120 112 130 118 100 Diastolic 76 68 70 60 62 58 Heart Rate 88 80 78 78 98 73 SpO2 92 % 96 % 97 % 99 % 98 % 98 % Temp 97.8 F 98.4 F 97.3 F 98.3 F 97.2 F 98.1 F Resp 18 16 16 16 Height (in) 5' 2 5' 2 5' 2 5' 2 5' 2 5' 2 5' 2 Weight (lb) 174.4 174 166.4 174 155.8 157 182 Visit Report Report Report Report Report Report Report Report RECENT LABS Recent Results (from the past 6 weeks) PROTEIN ELECTROPHORESIS, SERUM Collection Time: 07/26/24 2:11 PM Result Value Ref Range Albumin 3.3 (L) 3.4 - 5.0 g/dL Alpha 1 Globulin 0.3 0.2 - 0.6 g/dL Alpha 2 Globulin 0.7 0.4 - 1.1 g/dL Beta Globulin 0.7 0.5 - 1.2 g/dL Gamma 0.5 0.5 - 1.4 g/dL Protein Electrophoresis Comment Hypoalbuminemia. Path Review - Serum Protein Electrophoresis Reviewed and approved by CASS FREEDMAN on 07/28/24 at 9:40 AM. [facility] KAPPA/LAMBDA FREE LIGHT CHAIN,S Collection Time: 07/26/24 2:11 PM Result Value Ref Range [place] Free Light Chains QNT <0.08 (L) 0.33 - 1.94 mg/dL Lambda Free Light Chains QNT <0.17 (L) 0.57 - 2.63 mg/dL KAPPA/LAMBDA FLC RATIO COMPREHENSIVE METABOLIC PANEL Collection Time: 07/26/24 2:11 PM Result Value Ref Range Glucose 96 74 - 99 mg/dL Sodium 137 136 - 145 mmol/L POTASSIUM, SERUM 4.2 3.5 - 5.3 mmol/L Chloride 104 98 - 107 mmol/L CO2 26 21 - 32 mmol/L Anion Gap 11 10 - 20 mmol/L Urea Nitrogen 23 6 - 23 mg/dL Creatinine 0.82 0.50 - 1.05 mg/dL eGFR 79 >60 mL/min/1.73m*2 Calcium 8.8 8.6 - 10.3 mg/dL Albumin 3.5 3.4 - 5.0 g/dL Alk phos 106 33 - 136 U/L Total Protein 5.6 (L) 6.4 - 8.2 g/dL AST 43 (H) 9 - 39 U/L Total Bilirubin 0.7 0.0 - 1.2 mg/dL ALT 26 7 - 45 U/L CBC (INCLUDES DIFF/PLT) Collection Time: 07/26/24 2:11 PM Result Value Ref Range WBC 2.9 (L) 4.4 - 11.3 x10*3/uL NUCLEATED RBCS 0.0 0.0 - 0.0 /100 WBCs RBC 3.29 (L) 4.00 - 5.20 x10*6/uL Hemoglobin 8.9 (L) 12.0 - 16.0 g/dL Hematocrit 28.6 (L) 36.0 - 46.0 % MCV 87 80 - 100 fL MCH 27.1 26.0 - 34.0 pg MCHC 31.1 (L) 32.0 - 36.0 g/dL RDW 17.5 (H) 11.5 - 14.5 % Platelets 78 (L) 150 - 450 x10*3/uL Neut% 48.4 40.0 - 80.0 % IMMATURE GRANULOCYTES 0.3 0.0 - 0.9 % Lymph% 25.9 13.0 - 44.0 % % MONOCYTES 20.3 2.0 - 10.0 % % EOSINOPHILS 4.8 0.0 - 6.0 % BASOS 0.3 0.0 - 2.0 % ABSOLUTE BAND NEUTROPHILS 1.40 1.20 - 7.70 x10*3/uL IMMATURE GRANULOCYTES 0.01 0.00 - 0.70 x10*3/uL LYMPHS (ABSOLUTE) 0.75 (L) 1.20 - 4.80 x10*3/uL MONOCYTES(ABSOLUTE) 0.59 0.10 - 1.00 x10*3/uL External Eosinophil Absolute 0.14 0.00 - 0.70 x10*3/uL BASO (ABSOLUTE) 0.01 0.00 - 0.10 x10*3/uL Respiratory panel Collection Time: 08/08/24 1:28 PM Specimen: Nasopharyngeal Result Value Ref Range ADENOVIRUS Not detected BORDETELLA PARAPERTUSSIS Not detected CHLAMYDIA PNEUMONIAE Not detected CORONAVIRUS 229E Not detected CORONAVIRUS HKU1 Not detected CORONAVIRUS NL63 Not detected CORONAVIRUS OC43 Not detected INFLUENZA A Not detected INFLUENZA B Not detected HUMAN METAPNEUMOVIRUS Not detected MYCOPLASMA PNEUMONIAE Not detected PARAINFLUENZA VIRUS 1 Not detected PARAINFLUENZA VIRUS 2 Not detected PARAINFLUENZA VIRUS 3 Not detected PARAINFLUENZA VIRUS 4 Not detected BORDETELLA PERTUSSIS-PTXP Not detected HUMAN RHINO/ENTEROVIRUS Not detected RESP. SYNCYTIAL VIRUS Not detected COVID-19 DETECTED/NOT DETECTED Not detected BLANK SPACE FLUA TEST INCLUDES Influenza A tests for the following clinically FLUA TEST INCLUDES significant subtypes: FLUA TEST INCLUDES - Influenza A FLUA TEST INCLUDES - Influenza A H1 FLUA TEST INCLUDES - Influenza A H1 2008 FLUA TEST INCLUDES - Influenza A H3 BLANK SPACE COVID-19 PCR ([facility] [place]) Collection Time: 08/08/24 1:28 PM Result Value Ref Range BIOFIRE NOT DETECTED Not Detected Not Detecte COMPREHENSIVE METABOLIC PANEL Collection Time: 08/16/24 9:42 AM Result Value Ref Range Glucose 107 (H) 74 - 99 mg/dL Sodium 139 136 - 145 mmol/L POTASSIUM, SERUM 4.5 3.5 - 5.3 mmol/L Chloride 105 98 - 107 mmol/L CO2 28 21 - 32 mmol/L Anion Gap 11 10 - 20 mmol/L Urea Nitrogen 23 6 - 23 mg/dL Creatinine 0.77 0.50 - 1.05 mg/dL eGFR 85 >60 mL/min/1.73m*2 Calcium 8.5 (L) 8.6 - 10.3 mg/dL Albumin 3.5 3.4 - 5.0 g/dL Alk phos 102 33 - 136 U/L Total Protein 5.4 (L) 6.4 - 8.2 g/dL AST 32 9 - 39 U/L Total Bilirubin 0.7 0.0 - 1.2 mg/dL ALT 18 7 - 45 U/L CBC (INCLUDES DIFF/PLT) Collection Time: 08/16/24 9:42 AM Result Value Ref Range WBC 2.5 (L) 4.4 - 11.3 x10*3/uL NUCLEATED RBCS 0 0.0 - 0.0 /100 WBCs RBC 3.15 (L) 4.00 - 5.20 x10*6/uL Hemoglobin 8.5 (L) 12.0 - 16.0 g/dL Hematocrit 27.5 (L) 36.0 - 46.0 % MCV 87 80 - 100 fL MCH 27 26.0 - 34.0 pg MCHC 30.9 (L) 32.0 - 36.0 g/dL RDW 17.3 (H) 11.5 - 14.5 % Platelets 72 (L) 150 - 450 x10*3/uL Neut% 37.6 40.0 - 80.0 % IMMATURE GRANULOCYTES 0.4 0.0 - 0.9 % Lymph% 25.7 13.0 - 44.0 % % MONOCYTES 22.4 2.0 - 10.0 % % EOSINOPHILS 13.5 0.0 - 6.0 % BASOS 0.4 0.0 - 2.0 % ABSOLUTE BAND NEUTROPHILS 0.92 (L) 1.20 - 7.70 x10*3/uL IMMATURE GRANULOCYTES 0.01 0.00 - 0.70 x10*3/uL LYMPHS (ABSOLUTE) 0.63 (L) 1.20 - 4.80 x10*3/uL MONOCYTES(ABSOLUTE) 0.55 0.10 - 1.00 x10*3/uL External Eosinophil Absolute 0.33 0.00 - 0.70 x10*3/uL BASO (ABSOLUTE) 0.01 0.00 - 0.10 x10*3/uL MORPHOLOGY Collection Time: 08/16/24 9:42 AM Result Value Ref Range RBC Morphology See Below Hypochromasia Mild RBC Fragments Few Ovalocyte Few OBJECTIVE Physical Exam Vitals and nursing note reviewed. Constitutional: Appearance: Normal appearance. She is normal weight. HENT: Head: Normocephalic and atraumatic. Right Ear: Tympanic membrane, ear canal and external ear normal. Left Ear: Tympanic membrane, ear canal and external ear normal. Nose: Nose normal. Mouth/Throat: Mouth: Mucous membranes are moist. Eyes: Pupils: Pupils are equal, round, and reactive to light. Cardiovascular: Rate and Rhythm: Normal rate and regular rhythm. Pulses: Normal pulses. Heart sounds: Normal heart sounds. Pulmonary: Effort: Pulmonary effort is normal. Breath sounds: Normal breath sounds. Abdominal: General: Bowel sounds are normal. Palpations: Abdomen is soft. Musculoskeletal: General: Normal range of motion. Cervical back: Normal range of motion. Skin: General: Skin is warm and dry. Capillary Refill: Capillary refill takes less than 2 seconds. Neurological: General: No focal deficit present. Mental Status: She is alert and oriented to person, place, and time. Psychiatric: Mood and Affect: Mood normal. ASSESSMENT/PLAN Diagnoses and all orders for this visit: History of exposure to tuberculosis - T SPOT TB TEST; Future Gastroesophageal reflux disease without esophagitis - pantoprazole (Protonix) 20 MG EC tablet; Take 1 tablet (20 mg) by mouth in the morning and 1 tablet (20 mg) before bedtime. Do not crush, chew, or split.. Chronic cough - T SPOT TB TEST; Future Type 2 diabetes mellitus with other specified complication, without long-term current use of insulin ([facility]) - Semaglutide,0.25 or 0.5MG/DOS, (Ozempic, 0.25 or 0.5 MG/DOSE,) 2 MG/3ML solution pen-injector; Inject 0.5 mg under the skin 1 (one) time per week Do not start before September 05, 2024. - Semaglutide,0.25 or 0.5MG/DOS, (Ozempic, 0.25 or 0.5 MG/DOSE,) 2 MG/3ML solution pen-injector; Inject 0.25 mg under the skin 1 (one) time per week for 14 days Class 1 obesity due to excess calories with serious comorbidity and body mass index (BMI) of 33.0 to 33.9 in adult - Semaglutide,0.25 or 0.5MG/DOS, (Ozempic, 0.25 or 0.5 MG/DOSE,) 2 MG/3ML solution pen-injector; Inject 0.5 mg under the skin 1 (one) time per week Do not start before September 05, 2024. - Semaglutide,0.25 or 0.5MG/DOS, (Ozempic, 0.25 or 0.5 MG/DOSE,) 2 MG/3ML solution pen-injector; Inject 0.25 mg under the skin 1 (one) time per week for 14 days FOLLOW-UP Follow up in about 6 weeks (around 10/04/2024). documented in this encounterLiberty [id number] Instructions* Patient Instructions* Fabiola Palumbo NP - 08/23/2024 1:40 PM EDT PATIENT EDUCATION: GERD Discussed life-style modifications to reduce acid reflux. Avoid eating 2-3 hours prior to bed time,avoid spicy, greasy, high fat foods. Elevate head of bed when possible or elevate head on multiple pillows. Continue with current drug therapy, if symptoms begin to break through, call office for GI referral. Patient encouraged to also use ProBiotics for any bowel changes. DM Prior to your visit today, our team reviewed your chart and outlined testing and treatment needed for your care. Possible complications of diabetes include possible loss of vision, increased risks ofheart attack and stroke, and kidney failure. Your goals for your diabetic management are to keep your HgbA1c less than 7.0, your BP less than 130/80, and to maintain a healthy weight with a BMI of less than 26. We are working together to achieve these goals with the following plan of healthier diet, increased physical activity level, and medication understanding and compliance. Barriers to these goals have been discussed. Wt mng Your BMI is currently in the overweight or obese range. Low calorie or reduced carbohydrate diet isencouraged. It is recommend to journal food intake and exercise performance either using a simple paper/calendar system or downloading the [employer] application to track calorie consumption, food intake, exercise performance. You can also investigate Weight Watchers as a possible diet plan. Start with at least 150 minutes of exercise weekly and increase to a goal of 60 minutes per day. It isimportant to identify barriers to the following treatment plan. documented in this encounterLiberty [id number] History of Present illness Narrative* Supa Lindquist MD PhD - 08/16/2024 8:30 AM EDT Patient ID: Mojgan Pérez is a 68 y.o. female. Referring Physician: Supa Lindquist MD PhD [id number] [place] [address] Primary Care Provider: Fabiola Marinelli MD Assessment/Plan 08/16/24 Still coughing. And congested - on [facility] Myeloma restaging labs suppressed light chains, immunoglobulins. No M-protein. Overall, platelets improved. Teclistimab q3w. IVIG today. Today labs pending Oncology History Overview Note Referral from Dr. Marinelli at [facility]. MGUS since 2005 Followed at [facility] by Dr. Kumari, and then Dr. Cummings. 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 05/2023 Bmbx1q+, 4p-, 13q/-13, 14q- and 16q- Observation 2016->2020 Treatment 2020 Palliative XRT both hips 800 cGy 04/10/2020 Velcade dex Jennifer 07/31/2021 Radiation to soff tissue area of hip 3000 cGray 08/30/2021 Jennifer Rev 12/2021 Not a candidate for transplant (pancytopenia/liver cirrhosis) 12/2021 Jennifer Pomalidomide ->marrow suppression 07/2022 carfilzomib cyclophosphamide -> marrow suppression 05/24 Bmbx small percentage of plasma cells; hypocellular. Since the marrow was obtained in what waspossibly radiation field this may not be entirely premium service representative. Also clonal evolution in the marrow with the most recent marrow showing additional cytogenetic abnormalities. 07/23/23 Restaging labs: free lambda light chain 35.95 mg/dL (up from 5.65 mg/dL in December 2022) and free-lambda M-spike of 0.1 g/dL Myeloma responding (lambda chains <0.17) Teclistamab ramp-up (08/04-08/06-08/09/23): complicated grade-I CRS (fevers) and ICANS (suzanna ICE score 8/10) C2D1 teclistamab weekly (08/17/23, 08/25/23, 09/01/23, 09/08/23). Changed threshold notification forplt <35. 09/08/23 K/L ratio 0.01; IgG 338. SPEP pending. C3D1 teclisitimab weekly beginning 09/15/23- held due to Covid. 09/08/23 SPEP -no M protein 09/29/23 K/L chain ratio unable to calculate 11/17/23 IgG 526, IgA <7, IgM <5. SPEP and K/L chain ratio suppressed 2nd teclistamab ramp up C1D1 started on 11/18/23; then 11/20/23 and 11/22/23. C2D1 11/27/23 C2D8 12/08/23 (delayed 10 days to resume appt on Tuesdays) C2D15 12/15/23 C2D22 and 28; C3D1 held due to Covid. C3D8 01/12/24 C3D15 01/19/24 C3D22 and D28 held due to persistent cough. C4D1 Restart. 02/2024 restart teclistamab after long interrupton for COVID 02/23/24 excellent response - move to every other week. 05/24/24 Ongoing response myeloma restaging labs; transition to every 3 weeks Multiple myeloma Multiple myeloma not having achieved remission (Multi) PMH Aortic aneurysm Aortic stenosis COPD Diabetes Fibromalgia GERD HLD HTN Iron deficiency KAPADIA/liver disease Neuropathy PSH Appendectomy Carpel tunnel Cholecystectomy Elbow surgery Hernia repair Hysterectomy Arthroscopic knee Infection prophylaxis VZV: Acyclovir 400 mg PO BID PJP: Trimethoprim-sulfamethoxazole 800-160 mg PO 3x weekly Hypogammaglobulinemia IVIG given 09/22/23, 10/29/23 ([facility]) 12/08/23 01/12/24 02/09/24 03/08/24 04/05/24 05/24/34. Cont monthlyprn IgG <400. Not needed in July and Recent infections 09/12/23 COVID 12/2023 COVID 04/11/24 (Admission locally) Abdominal pain, A-fib and low BP, found to have sepsis + fluid overloadand treated with antibiotics and diuretics. 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 07/26 improving somewhat Subjective History of Present Illness: Here with daughter Overall doing well Still with chronic cough Review of Systems Constitutional: Negative. HENT: Negative. Eyes: Negative. Respiratory: Positive for cough. Negative for shortness of breath ([place]). Cardiovascular: Negative for chest pain (Gas on stomach this am.). Gastrointestinal: Negative for nausea (Occas. Takes Zofran prn.). Endocrine: Negative. Genitourinary: Negative. Musculoskeletal: Negative. Legs and stomach. Coughing causes muscle soreness. Skin: Negative. Resoling redness to lower legs. Neurological: Negative. Hematological: Negative. Psychiatric/Behavioral: Negative for sleep disturbance (Sleeping ok for the most part. Takes melatonin prn.). Objective Physical Exam Vitals reviewed. Constitutional: Appearance: Normal appearance. HENT: Head: Normocephalic and atraumatic. Nose: Nose normal. Mouth/Throat: Mouth: Mucous membranes are moist. Eyes: Pupils: Pupils are equal, round, and reactive to light. Cardiovascular: Rate and Rhythm: Normal rate and regular rhythm. Pulses: Normal pulses. Heart sounds: Normal heart sounds. Pulmonary: Effort: Pulmonary effort is normal. Breath sounds: Normal breath sounds. Abdominal: General: Abdomen is flat. Bowel sounds are normal. Palpations: Abdomen is soft. Musculoskeletal: General: Normal range of motion. Skin: General: Skin is warm and dry. Comments: Port site clean. Neurological: General: No focal deficit present. Mental Status: She is alert and oriented to person, place, and time. Psychiatric: Mood and Affect: Mood normal. documented in this [facility] Work Phone: [phone] History of Present illness Narrative* Lisette Perkins, VISUAL MERCH[employer]IS[employer]SALES DEVELOPMENT REPRESENTATIVE - 07/26/2024 1:00 PM EDT Patient ID: Mojgan Pérez is a 68 y.o. female. Referring Physician: Local oncologist Dr Marinelli [facility] main Dr Lindquist Primary Care Provider: Fabiola Marinelli MD Assessment/Plan 07/26/24 Myeloma restaging labs suppressed light chains, immunoglobulins. No M- protein. Overall, platelets improved (78k). Teclistimab q3w. Plans to see surgeon about aggravated hemorrhoids. Aware to let us know recommendations. Oncology History Overview Note Referral from Dr. Marinelli at [facility]. MGUS since 2005 Followed at [facility] by Dr. Kumari, and [...] both hips 800 cGy 04/10/2020 Velcade dex Jennifer 07/31/2021 Radiation to soff tissue area of hip 3000 cGray 08/30/2021 Jennifer Rev 12/2021 Not a candidate for transplant (pancytopenia/liver cirrhosis) 12/2021 Jennifer Pomalidomide ->marrow suppression 07/2022 carfilzomib cyclophosphamide -> marrow suppression 05/24 Bmbx small percentage of plasma cells; hypocellular. Since the marrow was obtained in what waspossibly radiation field this may not be entirely premium service representative. Also clonal evolution in the marrow with the most recent marrow showing additional cytogenetic abnormalities. 07/23/23 Restaging labs: free lambda light chain 35.95 mg/dL (up from 5.65 mg/dL in December 2022) and free-lambda M-spike of 0.1 g/dL Myeloma responding (lambda chains <0.17) Teclistamab ramp-up (08/04-08/06-08/09/23): complicated grade-I CRS (fevers) and ICANS (suzanna ICE score 8/10) C2D1 teclistamab weekly (08/17/23, 08/25/23, 09/01/23, 09/08/23). Changed threshold notification forplt <35. 09/08/23 K/L ratio 0.01; IgG 338. SPEP pending. C3D1 teclisitimab weekly beginning 09/15/23- held due to Covid. 09/08/23 SPEP -no M protein 09/29/23 K/L chain ratio unable to calculate 11/17/23 IgG 526, IgA <7, IgM <5. SPEP and K/L chain ratio suppressed 2nd teclistamab ramp up C1D1 started on 11/18/23; then 11/20/23 and 11/22/23. C2D1 11/27/23 C2D8 12/08/23 (delayed 10 days to resume appt on Tuesdays) C2D15 12/15/23 C2D22 and 28; C3D1 held due to Covid. C3D8 01/12/24 C3D15 01/19/24 C3D22 and D28 held due to persistent cough. C4D1 Restart. 02/2024 restart teclistamab after long interrupton for COVID 02/23/24 excellent response - move to every other week. 05/24/24 Ongoing response myeloma restaging labs; transition to every 3 weeks Multiple myeloma (Multi) Multiple myeloma not having achieved remission (Multi) PMH Aortic aneurysm Aortic stenosis COPD Diabetes Fibromalgia GERD HLD HTN Iron deficiency KAPADIA/liver disease Neuropathy PSH Appendectomy Carpel tunnel Cholecystectomy Elbow surgery Hernia repair Hysterectomy Arthroscopic knee Infection prophylaxis VZV: Acyclovir 400 mg PO BID PJP: Trimethoprim-sulfamethoxazole 800-160 mg PO 3x weekly Hypogammaglobulinemia IVIG given 09/22/23, 10/29/23 ([facility]) 12/08/23 01/12/24 02/09/24 03/08/24 04/05/24 05/24/34. Cont monthlyprn IgG <400. 07/26 IgG 529. Recent infections 09/12/23 COVID 12/2023 COVID 04/11/24 (Admission locally) Abdominal pain, A-fib and low BP, found to have sepsis + fluid overloadand treated with antibiotics and diuretics. 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 Subjective History of Present Illness: Mrs Pérez presents to the clinic today with her daughter. Painful hemorrhoids with BM and activity. Hemorrhoids aggravated for about 6m. Bleed at times. Using witch jossy; wipes, sitz baths, Moseley hemorrhoid cream. Denies constipation. Has seen PCP for management. Scheduled with surgeon on 08/08 locally. Cough (dry->green yellow sputum) varies. Takes Claritin/Zyrtec. Sinus infection 2 weeks ago. Zpack and prednisone. Inhaler by hotel maintenance technician. Dr Marinelli ordered a PET/CT. Needs to reschedule. Energy low. 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 Vacuum.) Appetite good; gained 10#. PCP rec ECHO. Review of Systems Constitutional: Positive for fatigue. HENT: Negative. Eyes: Negative. Respiratory: Positive for cough, shortness of breath (Occas) and wheezing (Sometimes). Cardiovascular: Positive for leg swelling (R ankles swells periodically). Gastrointestinal: Positive for nausea (Takes antiemetic.). Endocrine: Negative. Genitourinary: Negative. Musculoskeletal: Negative. Neuropathic pain in legs Skin: Negative. Neurological: Positive for headaches (Couple) and numbness. Hematological: Negative. Psychiatric/Behavioral: Positive for depression (Medicine helps.) and sleep disturbance (Melatonin helps). Objective Physical Exam Vitals reviewed. Constitutional: Appearance: Normal appearance. HENT: Head: Normocephalic and atraumatic. Nose: Nose normal. Mouth/Throat: Mouth: Mucous membranes are moist. Eyes: Pupils: Pupils are equal, round, and reactive to light. Cardiovascular: Rate and Rhythm: Normal rate and regular rhythm. Pulses: Normal pulses. Heart sounds: Normal heart sounds. Pulmonary: Effort: Pulmonary effort is normal. Breath sounds: Normal breath sounds. Abdominal: General: Abdomen is flat. Bowel sounds are normal. Palpations: Abdomen is soft. Musculoskeletal: General: Normal range of motion. Cervical back: Normal range of motion. Skin: General: Skin is warm and dry. Comments: Mediport site clean. Neurological: General: No focal deficit present. Mental Status: She is alert and oriented to person, place, and time. Psychiatric: Mood and Affect: Mood normal. documented in this [facility] Work Phone: [phone] 281-162909-18-2024 History of Present illness Narrative* Letty Newsome, PAMELLA - 07/20/2024 10:40 AM EDT Family Medicine Note Subjective: Chief Complaint: cough HPI: Mojgan Pérez presents via telehealth visit with complaints of a cough. The patient reports that she has had a cough for some time with minimal relief. She is currently a patient of Loyd Raymundo, who currently has her on [facility]. She has had imaging completed in the recent past as well which did not demonstrate any abnormalities. She has recently been prescribed antibiotics and steroids as well. She denies any sick contacts. She is also taking medication to treat GERD on a daily basis. Due toher cough, the patient reports that she has been having significant pain and bleeding from hemorrhoids. She has had hemorrhoids for some time, however she has never been evaluated by general surgery for treatment in the past. Current Outpatient Medications: acyclovir (Zovirax) 400 MG tablet, Take 400 mg by mouth in the morning and 400 mg before bedtime., Disp: , Rfl: acyclovir (Zovirax) 400 MG tablet, Take 1 tablet (400 mg) by mouth in the morning and 1 tablet (400mg) before bedtime., Disp: 180 tablet, Rfl: 1 albuterol (2.5 MG/3ML) 0.083% nebulizer solution, Take 3 mL (2.5 mg) by nebulization every 6 (six) hours if needed for wheezing, Disp: 75 mL, Rfl: 2 Ascorbic Acid (vitamin C) 1000 MG tablet, 1 (one) time each day at the same time., Disp: , Rfl: atorvastatin (Lipitor) 40 MG tablet, Take 1 tablet (40 mg) by mouth Daily TAKE 1 TABLET BY MOUTH EVERY DAY FOR 90 DAYS, Disp: 90 tablet, Rfl: 3 azithromycin (Zithromax) 250 MG tablet, Take two tablets on day 1, and one tablet on days 2-5, Disp: 6 tablet, Rfl: 0 Tppmhsq-Lprmmrxcgrt-Rqmhhewybe (Breztri Aerosphere) 160-9-4.8 MCG/ACT aerosol, Inhale 2 puffs in the morning and 2 puffs before bedtime., Disp: , Rfl: carvedilol (Coreg) 12.5 MG tablet, Take 1 tablet (12.5 mg) by mouth in the morning and 1 tablet (12.5 mg) in the evening. Take with meals., Disp: 60 tablet, Rfl: 11 cetirizine (ZyrTEC) 10 MG tablet, Take 1 tablet (10 mg) by mouth at bedtime, Disp: 30 tablet, Rfl: 1 cholecalciferol (Vitamin D-3) 125 MCG (5000 UT) capsule, TAKE 1 CAPSULE BY MOUTH EVERY DAY FOR 90 DAYS, Disp: , Rfl: Cyanocobalamin (Vitamin B-12) 1000 MCG sublingual tablet, DISSOLVE 1 TABLET UNDER THE TONGUE ONCE ADAY, Disp: , Rfl: cyclobenzaprine (Flexeril) 5 MG tablet, 1 (one) time each day at the same time., Disp: , Rfl: DULoxetine (Cymbalta) [address] capsule, Take 1 capsule (60 mg) by mouth Daily Do not crush or chew., Disp: 90 capsule, Rfl: 3 EPINEPHrine (Epipen) 0.3 MG/0.3ML injection syringe, Inject 0.3 mL (0.3 mg) as directed 1 (one) time for 1 dose use as directed for allergic reaction and then call 911, Disp: 0.3 mL, Rfl: 1 famotidine (Pepcid) 20 MG tablet, Take 1 tablet (20 mg) by mouth in the morning and 1 tablet (20 mg) before bedtime., Disp: 60 tablet, Rfl: 0 fluticasone (Flonase) 50 MCG/ACT nasal spray, Administer 1 spray into each nostril 1 (one) time each day at the same time, Disp: , Rfl: furosemide (Lasix) 20 MG tablet, TAKE 1 TABLET BY MOUTH EVERY DAY, Disp: 90 tablet, Rfl: 1 gabapentin (Neurontin) 400 MG capsule, 2 (two) times a day, Disp: , Rfl: glucose blood (FREESTYLE LITE) test strip, Use as instructed, Disp: 100 each, Rfl: 3 Lancets 33G [facility], 1 each Daily, Disp: 100 each, Rfl: 3 lisinopril 5 MG tablet, Take 5 mg by mouth Daily, Disp: , Rfl: melatonin tablet, Take 2 mg by mouth at bedtime, Disp: , Rfl: metFORMIN XR (Glucophage-XR) 500 MG 24 hr tablet, Take 1 tablet (500 mg) by mouth Daily, Disp: 90 tablet, Rfl: 3 naloxone (Narcan) 4 mg/0.1 mL nasal spray, Administer 4 mg into affected nostril(s), Disp: , Rfl: OLANZapine (ZyPREXA) 2.5 MG tablet, Take 2.5 mg by mouth at bedtime, Disp: , Rfl: ondansetron ODT (Zofran-ODT) 8 MG disintegrating tablet, Take 8 mg by mouth every 8 (eight) hours if needed for nausea or vomiting., Disp: , Rfl: oxyCODONE (Roxicodone) 10 MG immediate release tablet, TAKE 1 TABLET BY MOUTH FOUR TIMES A DAY NEEDED, Disp: , Rfl: pantoprazole (Protonix) 20 MG EC tablet, Take 1 tablet (20 mg) by mouth in the morning and 1 tablet(20 mg) before bedtime. Do not crush, chew, or split.., Disp: , Rfl: potassium chloride ER (Micro-K) 10 MEQ ER capsule, Take 10 mEq by mouth in the morning., Disp: , Rfl: predniSONE (Deltasone) 10 MG tablet, Take 1 tablet (10 mg) by mouth Daily for 5 days, Disp: 5 tablet, Rfl: 0 spironolactone (Aldactone) 50 MG tablet, TAKE 1 TABLET BY MOUTH EVERY DAY, Disp: 90 tablet, Rfl: 1 sulfamethoxazole-trimethoprim (Bactrim DS) 800-160 MG per tablet, TAKE 1 TABLET BY MOUTH EVERY THURSDAY, THURSDAY AND THURSDAY, Disp: , Rfl: SUMAtriptan (Imitrex) 50 MG tablet, Take 50 mg by mouth 1 (one) time if needed., Disp: , Rfl: Teclistamab-cqyv 30 MG/3ML solution, , Disp: , Rfl: Medical History: Past Medical History: Diagnosis Date Acid reflux Acute right-sided low back pain with right-sided sciatica Aneurysm of ascending aorta (CMS/HCC) Anxiety Appendicitis Arthritis Atherosclerosis of abdominal aorta (CMS/HCC) Chicken pox Cholelithiasis Cirrhosis (CMS/HCC) nonalcoholic COPD (chronic obstructive pulmonary disease) (CMS/HCC) COPD exacerbation CTS (carpal tunnel syndrome) Depression (CMS/HCC) Diabetes (CMS/HCC) Endometriosis Family history of cancer Family history of colon cancer Fibromyalgia Hematoma Hemorrhoids History of being hospitalized 04/2019 [facility] 4.1 CM, CIRRHOSIS OF THE LIVER History of smoking Hyperlipidemia (CMS/HCC) Hypertension (CMS/HCC) Leukopenia Moderate persistent asthma with exacerbation (CMS/HCC) Morbid obesity (CMS/HCC) Myeloma (CMS/HCC) with thrombocytopenia Neuropathy Osteoarthrosis Rectal bleeding Rectal fissure Rectal pain Thoracic aortic aneurysm (CMS/HCC) Thrombocytopenia (CMS/HCC) UTI (urinary tract infection) 12/2022 Visual loss w/ corrective lenses Allergies: Allergies Allergen Reactions Latex Unknown, Hives and Rash Tetracycline Unknown, Hives and Rash Antazoline Itching Other Reaction(s): Unknown Diclofenac Unknown and Hives Diclofenac Sodium Hives Doxycycline Unknown and Swelling Erythromycin Hives Erythromycin Base Hives Other Dizziness Other Reaction(s): dizziness Quinolones Other Reaction(s): Hives, Unknown Reaction Wound Dressing Adhesive Unknown Amoxicillin Swelling and Rash Moxifloxacin Hives, Rash and Unknown Social History: Tobacco Use: Tobacco Use: Medium Risk (05/30/2024) Patient History Smoking Tobacco Use: Former Smokeless Tobacco Use: Former Passive Exposure: Not on file Objective: There were no vitals filed for this visit. (Telehealth visit) Physical Exam HENT: Nose: Congestion present. Pulmonary: Comments: Intermittent cough noted Assessment: Assess/Plan Problem List Items Addressed This Visit Chronic obstructive pulmonary disease (CMS/HCC) Relevant Orders Polysomnography Essential hypertension (CMS/HCC) Relevant Orders Polysomnography Paroxysmal atrial fibrillation (CMS/HCC) Relevant Orders Polysomnography Other Visit Diagnoses Bleeding hemorrhoids - Primary Relevant Orders Ambulatory referral to General Surgery She does have complaints of bleed hemorrhoids via telephone encounter today. She reports that this is due to her continued cough. She states that she is unsure that she is able to have intervention completed, however she has not been evaluated by general surgery. I will send a referral to general surgery today. Cough in adult Relevant Medications predniSONE (Deltasone) 10 MG tablet Other Relevant Orders Polysomnography Chronic cough Relevant Orders Polysomnography She does have continued complaints of a cough via telehealth visit today. She reports that she is able to expectorate yellow/clear mucus. She does currently follow with Dr. Raymundo who has her on Breztri. The patient reports that she is not sure this is actually assisting with her symptoms. Chest CT in December of this year did not demonstrate any abnormalities. She did have an echocardiogram completein 2022 which did show normal RVSP, however she does have some documented tricuspid malfunction. She reports that she does have a history of ELVIRA, however has not been compliant with CPAP for some time. I do question whether or not her cough could be related to untreated sleep apnea. We did discuss her completing a repeat sleep study which will be ordered today. She is also taking medication to treat GERD. Hypersomnolence Relevant Orders Polysomnography Follow-up: Follow up in about 2 weeks (around 08/03/2024), or if symptoms worsen or fail to improve. documented in this [facility]09-17-2024 Telephone encounter Note* Telephone Encounter - Fabiola Palumbo NP - 07/19/2024 2:06 PM EDT [id number] Miscellaneous Notes* Telephone Encounter - Fabiola Palumbo NP - 07/19/2024 2:06 PM EDT Send * Telephone Encounter - Fabiola Palumbo NP - 07/19/2024 2:05 PM EDT Patient has URI, requesting ATB documented in this [facility]09-17-2024 Telephone encounter Note* Telephone Encounter - Fabiola Palumbo NP - 07/19/2024 2:05 PM EDT Patient has URI, requesting ATB [id number] Instructions* Patient Instructions* Juan J Mendez MD - 07/18/2024 10:28 AM EDT [facility] next visit [facility] History of Present illness Narrative* Juan J Mendez MD - 07/18/2024 9:54 AM EDT SUBJECTIVE: Mojgan Pérez is a 68 year old female. Patient presents with: Cardiology Follow Up Mojgan Pérez was referred by Self HPI: The patient is a pleasant, 68-year-old female, who underwent extensive evaluation at the [facility], April 2019, after presenting with chest discomfort. [...] valve demonstrating a trace aortic valve regurgitation. CARDIAC HISTORY: SYMPTOMS: Chest pain/discomfort: Yes, Palpitations:No, Arrhythmia: No Dyspnea: Yes, Dyspnea at rest: No, Nocturnal dyspnea: Yes Orthopnea: No, Diaphoresis: No, Dizziness: No, Syncope: No, Edema: No, Nocturia: Yes, Impaired exercise tolerance: Yes, Claudication:No CONDITIONS: Hypertension: Yes, Heart failure:No, [place] Heart Association Functional Classification: Class II, Atrial [...] file Gets together: Not on file Attends roman catholic service: Not on file Active member of [...] negative or non-contributory. OBJECTIVE: VITALS: Blood pressure 100/60, pulse 76, height 157.5 cm (5' 2 ), weight 80.3 kg (177 lb 0.5 oz). PHYSICAL EXAMINATION: Physical examination was unchanged [...] pacemaker/ICD:No, Median sternotomy scar:No, Sternal instability:No CARDIAC: [place] beat not localized, Cardiac thrill:No, Heart rate [...] Instructed on chest pain. ASSESSMENT/PLAN/RECOMMENDATIONS: The patient continues to do well at today's visit, no symptomatic or clinical suggestion of aortic valve deterioration. After reviewing her current medication regimen, I see no reason to make any changes. The patient will follow in the office in April 2025 and a repeat echocardiogram will be obtained. Portions of the encounter note have been copied from a previous note, dated 04/13/2023, which has been updated where appropriate and reflects my current medical decision making from today. I spent a total of 35 minutes on the date of the service which included preparing to see the patient, [id number] patient care, completing clinical documentation, performing a medically appropriate examination, counseling and educating the patient/family/caregiver and ordering medications, tests or procedures. Nonrheumatic aortic valve stenosis (primary encounter diagnosis) Aneurysm of ascending aorta without rupture (hcc) Juan J Mendez MD documented in this [facility] History of Present illness Narrative* Supa Lindquist MD PhD - 07/05/2024 8:50 AM EDT Patient ID: Mojgan Pérez is a 68 y.o. female. Referring Physician: Supa Lindquist MD PhD [id number] [place] [address] Primary Care Provider: aFbiola Marinelli MD Assessment/Plan 07/05/24 Still coughing. And congested - on zyrtec Myeloma restaging labs suppressed light chains, immunoglobulins. No M-protein. Overall, platelets improved. Teclistimab q3w. IVIG today. Oncology History Overview Note Referral from Dr. Marinelli at [facility]. MGUS since 2005 Followed at [facility] by Dr. Kumari, and [...] both hips 800 cGy 04/10/2020 Velcade dex Jennifer 07/31/2021 Radiation to soff tissue area of hip 3000 cGray 08/30/2021 Jennifer Rev 12/2021 Not a candidate for transplant (pancytopenia/liver cirrhosis) 12/2021 Jennifer Pomalidomide ->marrow suppression 07/2022 carfilzomib cyclophosphamide -> marrow suppression 05/24 Bmbx small percentage of plasma cells; hypocellular. Since the marrow was obtained in what waspossibly radiation field this may not be entirely premium service representative. Also clonal evolution in the marrow with the most recent marrow showing additional cytogenetic abnormalities. 07/23/23 Restaging labs: free lambda light chain 35.95 mg/dL (up from 5.65 mg/dL in December 2022) and free-lambda M-spike of 0.1 g/dL Myeloma responding (lambda chains <0.17) Teclistamab ramp-up (08/04-08/06-08/09/23): complicated grade-I CRS (fevers) and ICANS (suzanna ICE score 8/10) C2D1 teclistamab weekly (08/17/23, 08/25/23, 09/01/23, 09/08/23). Changed threshold notification forplt <35. 09/08/23 K/L ratio 0.01; IgG 338. SPEP pending. C3D1 teclisitimab weekly beginning 09/15/23- held due to Covid. 09/08/23 SPEP -no M protein 09/29/23 K/L chain ratio unable to calculate 11/17/23 IgG 526, IgA <7, IgM <5. SPEP and K/L chain ratio suppressed 2nd teclistamab ramp up C1D1 started on 11/18/23; then 11/20/23 and 11/22/23. C2D1 11/27/23 C2D8 12/08/23 (delayed 10 days to resume appt on Tuesdays) C2D15 12/15/23 C2D22 and 28; C3D1 held due to Covid. C3D8 01/12/24 C3D15 01/19/24 C3D22 and D28 held due to persistent cough. C4D1 Restart. 02/2024 restart teclistamab after long interrupton for COVID 02/23/24 excellent response - move to every other week. 05/24/24 Ongoing response myeloma restaging labs; transition to every 3 weeks Multiple myeloma (Multi) Multiple myeloma not having achieved remission (Multi) PMH Aortic aneurysm Aortic stenosis COPD Diabetes Fibromalgia GERD HLD HTN Iron deficiency KAPADIA/liver disease Neuropathy PSH Appendectomy Carpel tunnel Cholecystectomy Elbow surgery Hernia repair Hysterectomy Arthroscopic knee Infection prophylaxis VZV: Acyclovir 400 mg PO BID PJP: Trimethoprim-sulfamethoxazole 800-160 mg PO 3x weekly Hypogammaglobulinemia IVIG given 09/22/23, 10/29/23 ([facility]) 12/08/23 01/12/24 02/09/24 03/08/24 04/05/24 05/24/34. Cont monthlyprn IgG <400. Recent infections 09/12/23 COVID 12/2023 COVID 04/11/24 (Admission locally) Abdominal pain, A-fib and low BP, found to have sepsis + fluid overloadand treated with antibiotics and diuretics. 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 Subjective History of Present Illness: Mrs Pérez presents to the clinic today with her daughter. Good days and bad days. Bad day is one with coughing, hacking, legs hurt. Taking gabapentin and Percocet for neuropathy. Eating better. Stopped Ozempic. Hemorrhoids, better. Bleeding some. Took stool softeners and feels better. Back on lisinopril; wonders if contributing to cough. Cough with greenish secretions. Sometimes blood streaks. Using inhaler. Upcoming appt with hotel maintenance technician in June. Has can inspector at [facility]. Missed appt due to hospital stay. Rescheduled for July. Follows with liver doctor too. Review of Systems Constitutional: Negative. HENT: Negative. Eyes: Negative. Respiratory: Positive for cough and shortness of breath (ROTHMAN). Cardiovascular: Positive for chest pain (Gas on stomach this am.). Gastrointestinal: Positive for nausea (Occas. Takes Zofran prn.). Endocrine: Negative. Genitourinary: Negative. Musculoskeletal: Negative. Legs and stomach. Coughing causes muscle soreness. Skin: Negative. Resoling redness to lower legs. Neurological: Negative. Hematological: Negative. Psychiatric/Behavioral: Positive for sleep disturbance (Sleeping ok for the most part. Takes melatonin prn.). Objective Physical Exam Vitals reviewed. Constitutional: Appearance: Normal appearance. HENT: Head: Normocephalic and atraumatic. Nose: Nose normal. Mouth/Throat: Mouth: Mucous membranes are moist. Eyes: Pupils: Pupils are equal, round, and reactive to light. Cardiovascular: Rate and Rhythm: Normal rate and regular rhythm. Pulses: Normal pulses. Heart sounds: Normal heart sounds. Pulmonary: Effort: Pulmonary effort is normal. Breath sounds: Normal breath sounds. Abdominal: General: Abdomen is flat. Bowel sounds are normal. Palpations: Abdomen is soft. Musculoskeletal: General: Normal range of motion. Skin: General: Skin is warm and dry. Comments: Port site clean. Neurological: General: No focal deficit present. Mental Status: She is alert and oriented to person, place, and time. Psychiatric: Mood and Affect: Mood normal. [facility] Work Phone: 1(272) 166-932708-26-2024 Telephone encounter Note* Telephone Encounter - Fabiola Palumbo NP - 06/27/2024 2:28 PM EDT Sent in another encounter [id number] Miscellaneous Notes* Telephone Encounter - Fabiola Palumbo NP - 06/27/2024 2:28 PM EDT Sent in another encounter * Telephone Encounter - Tiffanie Acevedo MA - 06/27/2024 1:54 PM EDT Pt left msg requesting refill of Acyclovir. She stated another doctor gave her this but she would like to start seeing Fabiola again. Please send if appropriate. documented in this encounterLiberty [id number] Telephone encounter Note* Telephone Encounter - Fabiola Palumbo NP - 06/27/2024 2:26 PM EDT Sent [place] [id number] Miscellaneous Notes* Telephone Encounter - Fabiola Palumbo NP - 06/27/2024 2:26 PM EDT Sent documented in this encounterLiberty [id number] Telephone encounter Note* Telephone Encounter - Tiffanie Acevedo MA - 06/27/2024 1:54 PM EDT Pt left msg requesting refill of Acyclovir. She stated another doctor gave her this but she would like to start seeing Fabiola again. Please send if appropriate. [facility] [id number] Evaluation note* Diagnosis Onset Date Resolution Status Admit Date Abnormal CXR (chest x-ray) acuteAugust 2023 9:59amCOPD (chronic obstructive pulmonary disease)acute June 27, 2024 9:57ktMX2 (diabetes mellitus, type 2)acuteAugust 2023 9:59amHistory of COVID-19acuteAugust 2023 9:59amHistory of tobacco abuse acuteAugust 2023 9:59amMaxillary sinusitis, chronicacuteAugust 2023 9:59am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inactiveAugus2023 9:59amMultiple myelomaacuteAugust 2023 9:11amCancer-related painchronic June 28, 2024 9:11amAcute right hip painacuteAugust 2023 6:48am HematuriaacuteAugust 2023 6:48amAcute thoracic back painchronicAugust 2023 6:48amBone marrow hypocellularitychronicAugust 2023 6:48am Cancer-related painchronicAugust 2023 6:48amChemotherapy-induced neutropeniachronicAugu2023 6:48amChronic copper deficiencychronicAugust 2023 6:48amDegenerative cervical spinal stenosischronicAugu2023 6:48amEncounter for antineoplastic immunotherapychron2023 6:48am Encounter for chemotherapy managementchronicA2023 6:48amEncounter for coordination of complex carechronDowney [facility] Medical Centerugu2023 6:48amHistory of 2019 novel coronavirus disease (COVID-19)chronicAugust 2023 6:48amIron deficiencychronicAugu2023 6:48am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)chronicAugus2023 6:48amMultiple myeloma chronicAugus2023 6:48amNeutropenia, unspecifiedchron2023 6:48amObesitychronicAugu2023 6:48am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chron2023 6:48amFrontal sinusitisresolvedAugus2023 6:48amDiabetes mellitusinactiveAugus2023 6:48amFibromyalgia inactiveAugus2023 6:48am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 inactiveAugus2023 6: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 6:48amRefractory chronic coughacuteAugus2023 9:18amBone marrow hypocellularitychronicAugu2023 9:18amCancer-related painchronic George 2023 9:18amChronic copper deficiencychronicAugu2023 9:18am Encounter for coordination of complex carechronDowney Regional Medical Centerugu2023 9:18am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)chronicAugust 2023 9:18amMultiple myelomachronicAugu2023 9:18am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chronicA2023 9:18am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inactiveAugust 2023 9:18amCancer-related painchronic August 26, 2024 11:19amMultiple myelomachronicOctober 2023 11:19am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)chronicNovember 2023 9:39am [facility] Work Phone: 1(871) 288-526408-26-2024 Evaluation note* Diagnosis Onset Date Resolution Status Admit Date Abnormal CXR (chest x-ray) acuteAugust 2023 9:59amCOPD (chronic obstructive pulmonary disease)acute June 27, 2024 9:20bpTV0 (diabetes mellitus, type 2)acuteAugust 2023 9:59amHistory of COVID-19acuteAugust 2023 9:59amHistory of tobacco abuse acuteAugust 2023 9:59amMaxillary sinusitis, chronicacuteAugust 2023 9:59am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inactiveAugust 2023 9:59amMultiple myelomaacuteAugust 2023 9:11amCancer-related painchronic June 28, 2024 9:11amRefractory chronic coughacuteAugust 2023 9:18am Bone marrow hypocellularitychronicAugust 2023 9:18amCancer-related pain chronicAugust 2023 9:18amChronic copper deficiencychronicAugu2023 9:18amEncounter for coordination of complex carechronicAugu2023 9:18am 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)chronicAugust 2023 9:18amMultiple myelomachronicAugust 2023 9:18am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chronicAugu2023 9:18am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inactiveAugust 2023 9:18amCancer-related painchronic August 26, 2024 11:19amMultiple myelomachronicOctober 2023 11:19am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)chronicNovember 2023 9:39amRefractory chronic coughacuteNovember 2023 9:52amBone marrow hypocellularitychronicNov2023 9:52amCancer-related painchronic September 15, 2024 9:52amChronic copper deficiencychronicNovember 2023 9:52amEncounter for coordination of complex carechronicNovember 2023 9:52am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)chronic September 15, 2024 9:52amMultiple myelomachronicNovember 2023 9:52am 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chronicNov2023 9:52am 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inactiveNov2023 9:52am Acute right hip painacuteNovember 2023 9:54amHematuriaacuteNovember 2023 9:54amAcute thoracic back painchronicNovember 2023 9:54amBone marrow hypocellularitychronicNov2023 9:54amCancer-related painchronic September 15, 2024 9:54amChemotherapy-induced neutropeniachronicNov2023 9:54amChronic copper deficiencychronicNov2023 9:54am Degenerative cervical spinal stenosischronicNov2023 9:54amEncounter for antineoplastic immunotherapychronicNov2023 9:54amEncounter for chemotherapy managementchronicNov2023 9:54amEncounter for coordination of complex carechronicNov2023 9:54amHistory of 2019 novel coronavirus disease (COVID-19)chronicNovember 2023 9:54amIron deficiencychronicNov2023 9:54am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)chronicNovember 2023 9:54amMultiple myeloma chronicNovember 2023 9:54amNeutropenia, unspecifiedchronicNov2023 9:54amObesitychronicNov2023 9:54am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chronicNov2023 9:54amFrontal sinusitisresolvedSeptember 15, 2024 9:54amDiabetes mellitusinactiveSeptember 15, 2024 9:54amFibromyalgia inactiveSeptember 15, 2024 9:54am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 inactiveSeptember 15, 2024 9:54amSmoldering multiple myeloma (SMM)inactive September 15, 2024 9:54am [facility] Work Phone: 1(911) 752-942808-26-2024 Evaluation note* Diagnosis Onset Date Resolution Status Admit Date Abnormal CXR (chest x-ray) acuteAugus2023 9:59amCOPD (chronic obstructive pulmonary disease)acute June 27, 2024 9:00dxXW1 (diabetes mellitus, type 2)acuteAugust 2023 9:59amHistory of COVID-19acuteAugust 2023 9:59amHistory of tobacco abuse acuteAugust 2023 9:59amMaxillary sinusitis, chronicacuteAugust 2023 9:59am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inactiveAugust 2023 9:59amMultiple myelomaacuteAugust 2023 9:11amCancer-related painchronic June 28, 2024 9:11amRefractory chronic coughacuteAugust 2023 9:18am Bone marrow hypocellularitychronicAugu2023 9:18amCancer-related pain chronicAugust 2023 9:18amChronic copper deficiencychronicAugu2023 9:18amEncounter for coordination of complex carechron2023 9:18am 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)chronicAugus2023 9:18amMultiple myelomachronicAugust 2023 9:18am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chronicA2023 9:18am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inactiveAugust 2023 9:18amCancer-related painchronic August 26, 2024 11:19amMultiple myelomachronicOctober 2023 11:19am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)chronicNovember 2023 9:39amRefractory chronic coughacuteNovember 2023 9:52amBone marrow hypocellularitychronicNovember 2023 9:52amCancer-related painchronic September 15, 2024 9:52amChronic copper deficiencychronicNovember 2023 9:52amEncounter for antineoplastic immunotherapychronicNovember 2023 9:52amEncounter for coordination of complex carechronicNovember 2023 9:52am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)chronic September 15, 2024 9:52amMultiple myelomachronicNovember 2023 9:52am 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chronicNovember 2023 9:52am 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inactiveNov2023 9:52am Acute right hip painacuteNovember 2023 9:54amHematuriaacuteNovember 2023 9:54amAcute thoracic back painchronicNov2023 9:54amBone marrow hypocellularitychronicNovember 2023 9:54amCancer-related painchronic September 15, 2024 9:54amChemotherapy-induced neutropeniachronicNovember 2023 9:54amChronic copper deficiencychronicNovember 2023 9:54am Degenerative cervical spinal stenosischronicNovember 2023 9:54amEncounter for antineoplastic immunotherapychronicNov2023 9:54amEncounter for chemotherapy managementchronicNov2023 9:54amEncounter for coordination of complex carechronicNovember 2023 9:54amHistory of 2019 novel coronavirus disease (COVID-19)chronicNovember 2023 9:54amIron deficiencychronicNovember 2023 9:54am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)chronicNovember 2023 9:54amMultiple myeloma chronicNov2023 9:54amNeutropenia, unspecifiedchronicSeptember 15, 2024 9:54amObesitychronicNov2023 9:54am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chronicSeptember 15, 2024 9:54amFrontal sinusitisresolvedSeptember 15, 2024 9:54amDiabetes mellitusinactiveSeptember 15, 2024 9:54amFibromyalgia inactiveSeptember 15, 2024 9:54am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 inactiveSeptember 15, 2024 9:54amSmoldering multiple myeloma (SMM)inactive September 15, 2024 9:54am [facility] Work Phone: 1(204) 416-863008-26-2024 Evaluation note* Diagnosis Onset Date Resolution Status Admit Date Abnormal CXR (chest x-ray) acuteAugust 2023 9:59amCOPD (chronic obstructive pulmonary disease)acute June 27, 2024 9:15ykEE0 (diabetes mellitus, type 2)acuteAugust 2023 9:59amHistory of COVID-19acuteAugust 2023 9:59amHistory of tobacco abuse acuteAugust 2023 9:59amMaxillary sinusitis, chronicacuteAugust 2023 9:59am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chronicAugu2023 9:59amMultiple myelomaacuteAugust 2023 9:11amCancer-related painchronic June 28, 2024 9:11amRefractory chronic coughacuteAugust 2023 9:18am Bone marrow hypocellularitychronicAugust 2023 9:18amCancer-related pain chronicAugust 2023 9:18amChronic copper deficiencychronicAugu2023 9:18amEncounter for coordination of complex carechronicAugu2023 9:18am 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chronicAugu2023 9:18am 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)chronicAugust 2023 9:18amMultiple myelomachronicAugust 2023 9:18am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chronicAugust 2023 9:18amCancer-related painchronic August 26, 2024 11:19amMultiple myelomachronicOctober 2023 11:19am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)chronicNovember 2023 9:39amRefractory chronic coughacuteNovember 2023 9:52amBone marrow hypocellularitychronicNovember 2023 9:52amCancer-related painchronic September 15, 2024 9:52amChronic copper deficiencychronicNovember 2023 9:52amEncounter for antineoplastic immunotherapychronicNovember 2023 9:52amEncounter for coordination of complex carechronicNovember 2023 9: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 2023 9:52am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)chronic September 15, 2024 9:52amMultiple myelomachronicNovember 2023 9:52am 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chronicNovember 2023 9:52amAcute right hip painacuteNovember 2023 9:54amHematuriaacuteNovember 2023 9:54amAcute thoracic back painchronicNovember 2023 9:54amBone marrow hypocellularitychronicNovember 2023 9:54amCancer-related painchronic September 15, 2024 9:54amChemotherapy-induced neutropeniachronicNovember 2023 9:54amChronic copper deficiencychronicNovember 2023 9:54am Degenerative cervical spinal stenosischronicNovember 2023 9:54amEncounter for antineoplastic immunotherapychronicNovember 2023 9:54amEncounter for chemotherapy managementchronicNovember 2023 9:54amEncounter for coordination of complex carechronicNovember 2023 9:54amHistory of 2019 novel coronavirus disease (COVID-19)[facility]:54am 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ch[facility] 9:54am Iron [facility]chronU[facility] 2023 9:54am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)[facility]ronic[facility] 2023 9:54amMultiple myelomachronicOwens[facility] 2023 9:54amNeutropenia, unspecifiedchronicOwensboro Health [facility] 2023 9:54amObesitychronicOwensboro [facility] 2023 9:54am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chronU[facility] 2023 9:54amFrontal sinusitisresolvedOwensboro [facility] 2023 9:54amDiabetes mellitusinactiveOwens[facility] 2023 9:54am FibromyalgiainactiveOwens[facility] 2023 9:54amSmoldering multiple myeloma (SMM) inactiveOwensboro [facility] 2023 9:54am [facility] Work Phone: 1(601) 960-728908-19-2024 History of Present illness Narrative* Fabiola Palumbo, [employer]PER[employer]OR - 06/20/2024 3:00 PM EDT SUBJECTIVE Mojgan Pérez is a 68 y.o. female who presents for a chronic illness management visit. Patient is having complaints of a chronic cough since her last illness. She states the cough sometimes keeps her awake at night. She is requesting a cough medication to stop the cough and help her sleep. CURRENT MEDICATIONS Current Outpatient Medications: acyclovir (Zovirax) 400 MG tablet, Take 400 mg by mouth in the morning and 400 mg before bedtime., Disp: , Rfl: albuterol (2.5 MG/3ML) 0.083% nebulizer solution, Take 3 mL (2.5 mg) by nebulization every 6 (six) hours if needed for wheezing, Disp: 75 mL, Rfl: 2 Ascorbic Acid (vitamin C) 1000 MG tablet, 1 (one) time each day at the same time., Disp: , Rfl: atorvastatin (Lipitor) 40 MG tablet, Take 1 tablet (40 mg) by mouth Daily TAKE 1 TABLET BY MOUTH EVERY DAY FOR 90 DAYS, Disp: 90 tablet, Rfl: 3 Pfjdxea-Gfymugsduef-Jljvwlhrbr (Breztri Aerosphere) 160-9-4.8 MCG/ACT aerosol, Inhale 2 puffs in the morning and 2 puffs before bedtime., Disp: , Rfl: cetirizine (ZyrTEC) 10 MG tablet, Take 1 tablet (10 mg) by mouth at bedtime, Disp: 30 tablet, Rfl: 1 cholecalciferol (Vitamin D-3) 125 MCG (5000 UT) capsule, TAKE 1 CAPSULE BY MOUTH EVERY DAY FOR 90 DAYS, Disp: , Rfl: Cyanocobalamin (Vitamin B-12) 1000 MCG sublingual tablet, DISSOLVE 1 TABLET UNDER THE TONGUE ONCE ADAY, Disp: , Rfl: cyclobenzaprine (Flexeril) 5 MG tablet, 1 (one) time each day at the same time., Disp: , Rfl: DULoxetine (Cymbalta) [address] capsule, Take 1 capsule (60 mg) by mouth Daily Do not crush or chew., Disp: 90 capsule, Rfl: 3 EPINEPHrine (Epipen) 0.3 MG/0.3ML injection syringe, Inject 0.3 mL (0.3 mg) as directed 1 (one) time for 1 dose use as directed for allergic reaction and then call 911, Disp: 0.3 mL, Rfl: 1 famotidine (Pepcid) 20 MG tablet, Take 1 tablet (20 mg) by mouth in the morning and 1 tablet (20 mg) before bedtime., Disp: 60 tablet, Rfl: 0 fluticasone (Flonase) 50 MCG/ACT nasal spray, Administer 1 spray into each nostril 1 (one) time each day at the same time, Disp: , Rfl: furosemide (Lasix) 20 MG tablet, Take 1 tablet (20 mg) by mouth Daily, Disp: 30 tablet, Rfl: 1 gabapentin (Neurontin) 400 MG capsule, 2 (two) times a day, Disp: , Rfl: glucose blood (FREESTYLE LITE) test strip, Use as instructed, Disp: 100 each, Rfl: 3 Lancets 33G misc, 1 each Daily, Disp: 100 each, Rfl: 3 lisinopril 5 MG tablet, Take 5 mg by mouth Daily, Disp: , Rfl: melatonin tablet, Take 2 mg by mouth at bedtime, Disp: , Rfl: metFORMIN XR (Glucophage-XR) 500 MG 24 hr tablet, Take 1 tablet (500 mg) by mouth Daily, Disp: 90 tablet, Rfl: 3 naloxone (Narcan) 4 mg/0.1 mL nasal spray, Administer 4 mg into affected nostril(s), Disp: , Rfl: nystatin (Mycostatin) 811035 UNIT/ML suspension, Take 5 mL (500,000 Units) by mouth in the morning and 5 mL (500,000 Units) at noon and 5 mL (500,000 Units) in the evening and 5 mL (500,000 Units) before bedtime. Do all this for 14 days., Disp: 280 mL, Rfl: 0 OLANZapine (ZyPREXA) 2.5 MG tablet, Take 2.5 mg by mouth at bedtime, Disp: , Rfl: ondansetron ODT (Zofran-ODT) 8 MG disintegrating tablet, Take 8 mg by mouth every 8 (eight) hours if needed for nausea or vomiting., Disp: , Rfl: oxyCODONE (Roxicodone) 10 MG immediate release tablet, TAKE 1 TABLET BY MOUTH FOUR TIMES A DAY NEEDED, Disp: , Rfl: pantoprazole (Protonix) 20 MG EC tablet, Take 1 tablet (20 mg) by mouth in the morning and 1 tablet(20 mg) before bedtime. Do not crush, chew, or split.., Disp: , Rfl: potassium chloride ER (Micro-K) 10 MEQ ER capsule, Take 10 mEq by mouth in the morning., Disp: , Rfl: spironolactone (Aldactone) 50 MG tablet, Take 1 tablet (50 mg) by mouth Daily, Disp: 30 tablet, Rfl: 1 sulfamethoxazole-trimethoprim (Bactrim DS) 800-160 MG per tablet, TAKE 1 TABLET BY MOUTH EVERY THURSDAY, THURSDAY AND THURSDAY, Disp: , Rfl: SUMAtriptan (Imitrex) 50 MG tablet, Take 50 mg by mouth 1 (one) time if needed., Disp: , Rfl: Teclistamab-cqyv 30 MG/3ML solution, , Disp: , Rfl: carvedilol (Coreg) 12.5 MG tablet, Take 1 tablet (12.5 mg) by mouth in the morning and 1 tablet (12.5 mg) in the evening. Take with meals., Disp: 60 tablet, Rfl: 11 promethazine-dextromethorphan (Phenergan-DM) 6.25-15 MG/5ML syrup, Take 5 mL by mouth every 4 (four) hours if needed for cough for up to 7 days, Disp: 118 mL, Rfl: 0 RECENT VITAL SIGNS 11/30/2023 9:19 AM 02/22/2024 10:03 AM 03/11/2024 2:22 PM 03/31/2024 2:16 PM 04/28/2024 1:47 PM 05/30/2024 11:19 AM 06/20/2024 2:56 PM Vitals BMI 32.92 kg/m2 31.9 kg/m2 31.83 kg/m2 30.43 kg/m2 31.83 kg/m2 28.5 kg/m2 28.72 kg/m2 BSA (m2) 1.89 m2 1.86 m2 1.86 m2 1.82 m2 1.86 m2 1.76 m2 1.76 m2 Systolic 132 124 120 112 130 118 Diastolic 70 76 68 70 60 62 Heart Rate 87 88 80 78 78 98 SpO2 97 % 92 % 96 % 97 % 99 % 98 % Temp 96.5 F 97.8 F 98.4 F 97.3 F 98.3 F 97.2 F Resp 16 18 16 16 16 Height (in) 5' 2 5' 2 5' 2 5' 2 5' 2 5' 2 Weight (lb) 180 174.4 174 166.4 174 155.8 157 Visit Report Report Report Report Report Report Report Report RECENT LABS Recent Results (from the past 1008 hour(s)) CBC (INCLUDES DIFF/PLT) Collection Time: 05/10/24 2:20 PM Result Value Ref Range WBC 2.2 (L) 4.4 - 11.3 x10*3/uL NUCLEATED RBCS 0.0 0.0 - 0.0 /100 WBCs RBC 3.16 (L) 4.00 - 5.20 x10*6/uL Hemoglobin 8.7 (L) 12.0 - 16.0 g/dL Hematocrit 27.6 (L) 36.0 - 46.0 % MCV 87 80 - 100 fL MCH 27.5 26.0 - 34.0 pg MCHC 31.5 (L) 32.0 - 36.0 g/dL RDW 22.5 (H) 11.5 - 14.5 % Platelets 59 (L) 150 - 450 x10*3/uL Neut% 46.0 40.0 - 80.0 % IMMATURE GRANULOCYTES 0.5 0.0 - 0.9 % Lymph% 31.7 13.0 - 44.0 % % MONOCYTES 17.2 2.0 - 10.0 % % EOSINOPHILS 4.1 0.0 - 6.0 % BASOS 0.5 0.0 - 2.0 % ABSOLUTE BAND NEUTROPHILS 1.02 (L) 1.20 - 7.70 x10*3/uL IMMATURE GRANULOCYTES 0.01 0.00 - 0.70 x10*3/uL LYMPHS (ABSOLUTE) 0.70 (L) 1.20 - 4.80 x10*3/uL MONOCYTES(ABSOLUTE) 0.38 0.10 - 1.00 x10*3/uL External Eosinophil Absolute 0.09 0.00 - 0.70 x10*3/uL BASO (ABSOLUTE) 0.01 0.00 - 0.10 x10*3/uL COMPREHENSIVE METABOLIC PANEL Collection Time: 05/10/24 2:20 PM Result Value Ref Range Glucose 86 74 - 99 mg/dL Sodium 140 136 - 145 mmol/L POTASSIUM, SERUM 4.1 3.5 - 5.3 mmol/L Chloride 105 98 - 107 mmol/L CO2 28 21 - 32 mmol/L Anion Gap 11 10 - 20 mmol/L Urea Nitrogen 15 6 - 23 mg/dL Creatinine 0.66 0.50 - 1.05 mg/dL eGFR >90 >60 mL/min/1.73m*2 Calcium 8.7 8.6 - 10.3 mg/dL Albumin 3.6 3.4 - 5.0 g/dL Alk phos 158 (H) 33 - 136 U/L Total Protein 5.4 (L) 6.4 - 8.2 g/dL AST 26 9 - 39 U/L Total Bilirubin 1.0 0.0 - 1.2 mg/dL ALT 16 7 - 45 U/L LD Collection Time: 05/10/24 2:20 PM Result Value Ref Range LD 208 84 - 246 U/L MORPHOLOGY Collection Time: 05/10/24 2:20 PM Result Value Ref Range RBC Morphology See Below Hypochromasia Mild RBC Fragments Few Ovalocyte Few Tear Drop Few Giant Platelets Few CBC (INCLUDES DIFF/PLT) Collection Time: 05/24/24 2:39 PM Result Value Ref Range WBC 2.7 (L) 4.4 - 11.3 x10*3/uL NUCLEATED RBCS 0.0 0.0 - 0.0 /100 WBCs RBC 3.21 (L) 4.00 - 5.20 x10*6/uL Hemoglobin 8.9 (L) 12.0 - 16.0 g/dL Hematocrit 27.8 (L) 36.0 - 46.0 % MCV 87 80 - 100 fL MCH 27.7 26.0 - 34.0 pg MCHC 32.0 32.0 - 36.0 g/dL RDW 19.7 (H) 11.5 - 14.5 % Platelets 57 (L) 150 - 450 x10*3/uL IMMATURE GRANULOCYTES 10.8 (H) 0.0 - 0.9 % IMMATURE GRANULOCYTES 0.29 0.00 - 0.70 x10*3/uL COMPREHENSIVE METABOLIC PANEL Collection Time: 05/24/24 2:39 PM Result Value Ref Range Glucose 103 (H) 74 - 99 mg/dL Sodium 135 (L) 136 - 145 mmol/L POTASSIUM, SERUM 4.0 3.5 - 5.3 mmol/L Chloride 101 98 - 107 mmol/L CO2 25 21 - 32 mmol/L Anion Gap 13 10 - 20 mmol/L Urea Nitrogen 12 6 - 23 mg/dL Creatinine 0.68 0.50 - 1.05 mg/dL eGFR >90 >60 mL/min/1.73m*2 Calcium 8.1 (L) 8.6 - 10.3 mg/dL Albumin 3.6 3.4 - 5.0 g/dL Alk phos 137 (H) 33 - 136 U/L Total Protein 5.4 (L) 6.4 - 8.2 g/dL AST 27 9 - 39 U/L Total Bilirubin 1.2 0.0 - 1.2 mg/dL ALT 16 7 - 45 U/L CBC (INCLUDES DIFF/PLT) Collection Time: 06/14/24 2:48 PM Result Value Ref Range WBC 4.0 (L) 4.4 - 11.3 x10*3/uL NUCLEATED RBCS 0.0 0.0 - 0.0 /100 WBCs RBC 3.29 (L) 4.00 - 5.20 x10*6/uL Hemoglobin 9.0 (L) 12.0 - 16.0 g/dL Hematocrit 28.4 (L) 36.0 - 46.0 % MCV 86 80 - 100 fL MCH 27.4 26.0 - 34.0 pg MCHC 31.7 (L) 32.0 - 36.0 g/dL RDW 19.5 (H) 11.5 - 14.5 % Platelets 63 (L) 150 - 450 x10*3/uL Neut% 54.9 40.0 - 80.0 % IMMATURE GRANULOCYTES 0.3 0.0 - 0.9 % Lymph% 25.4 13.0 - 44.0 % % MONOCYTES 15.8 2.0 - 10.0 % % EOSINOPHILS 3.3 0.0 - 6.0 % BASOS 0.3 0.0 - 2.0 % ABSOLUTE BAND NEUTROPHILS 2.19 1.20 - 7.70 x10*3/uL IMMATURE GRANULOCYTES 0.01 0.00 - 0.70 x10*3/uL LYMPHS (ABSOLUTE) 1.01 (L) 1.20 - 4.80 x10*3/uL MONOCYTES(ABSOLUTE) 0.63 0.10 - 1.00 x10*3/uL External Eosinophil Absolute 0.13 0.00 - 0.70 x10*3/uL BASO (ABSOLUTE) 0.01 0.00 - 0.10 x10*3/uL URIC ACID Collection Time: 06/14/24 3:19 PM Result Value Ref Range Uric Acid 6.1 2.3 - 6.7 mg/dL LD Collection Time: 06/14/24 3:19 PM Result Value Ref Range LD 236 84 - 246 U/L COMPREHENSIVE METABOLIC PANEL Collection Time: 06/14/24 3:19 PM Result Value Ref Range Glucose 136 (H) 74 - 99 mg/dL Sodium 134 (L) 136 - 145 mmol/L POTASSIUM, SERUM 4.4 3.5 - 5.3 mmol/L Chloride 101 98 - 107 mmol/L CO2 27 21 - 32 mmol/L Anion Gap 10 10 - 20 mmol/L Urea Nitrogen 23 6 - 23 mg/dL Creatinine 0.90 0.50 - 1.05 mg/dL eGFR 71 >60 mL/min/1.73m*2 Calcium 8.4 (L) 8.6 - 10.6 mg/dL Albumin 3.3 (L) 3.4 - 5.0 g/dL Alk phos 108 33 - 136 U/L Total Protein 5.3 (L) 6.4 - 8.2 g/dL AST 34 9 - 39 U/L Total Bilirubin 0.9 0.0 - 1.2 mg/dL ALT 26 7 - 45 U/L PROTEIN ELECTROPHORESIS, SERUM Collection Time: 06/14/24 3:19 PM Result Value Ref Range Albumin 3.1 (L) 3.4 - 5.0 g/dL Alpha 1 Globulin 0.3 0.2 - 0.6 g/dL Alpha 2 Globulin 0.6 0.4 - 1.1 g/dL Beta Globulin 0.6 0.5 - 1.2 g/dL Gamma 0.4 (L) 0.5 - 1.4 g/dL Protein Electrophoresis Comment Hypoalbuminemia. Decrease in polyclonal gamma globulins. Path Review - Serum Protein Electrophoresis Reviewed and approved by TIFFANIE TOWNSEND on 06/15/24 at 9:36 PM. POCT glycosylated hemoglobin (Hb A1C) docked device Collection Time: 06/20/24 3:12 PM Result Value Ref Range Hemoglobin A1C 5.7 OBJECTIVE Physical Exam Vitals and nursing note reviewed. Constitutional: Appearance: Normal appearance. She is normal weight. HENT: Head: Normocephalic and atraumatic. Right Ear: Tympanic membrane, ear canal and external ear normal. Left Ear: Tympanic membrane, ear canal and external ear normal. Nose: Nose normal. Mouth/Throat: Mouth: Mucous membranes are moist. Eyes: Pupils: Pupils are equal, round, and reactive to light. Cardiovascular: Rate and Rhythm: Normal rate and regular rhythm. Pulses: Normal pulses. Heart sounds: Normal heart sounds. Pulmonary: Effort: Pulmonary effort is normal. Breath sounds: Normal breath sounds. Abdominal: General: Bowel sounds are normal. Palpations: Abdomen is soft. Musculoskeletal: General: Normal range of motion. Cervical back: Normal range of motion. Skin: General: Skin is warm and dry. Capillary Refill: Capillary refill takes less than 2 seconds. Neurological: General: No focal deficit present. Mental Status: She is alert and oriented to person, place, and time. Psychiatric: Mood and Affect: Mood normal. ASSESSMENT/PLAN Diagnoses and all orders for this visit: Type 2 diabetes mellitus with other specified complication, unspecified whether penitentiary insulin use ([facility]) - POCT glycosylated hemoglobin (Hb A1C) docked device BMI 28.0-28.9,adult Viral upper respiratory tract infection - promethazine-dextromethorphan (Phenergan-DM) 6.25-15 MG/5ML syrup; Take 5 mL by mouth every 4 (four) hours if needed for cough for up to 7 days Hypertension, unspecified type (CMS/HCC) - carvedilol (Coreg) 12.5 MG tablet; Take 1 tablet (12.5 mg) by mouth in the morning and 1 tablet (12.5 mg) in the evening. Take with meals. FOLLOW-UP Follow up in about 6 months (around 12/21/2024) for Next scheduled follow-up: CIM . documented in this [facility]08-19-2024 Instructions* Patient Instructions* Fabiola Palumbo NP - 06/20/2024 3:00 PM EDT PATIENT EDUCATION: DM Prior to your visit today, our team reviewed your chart and outlined testing and treatment needed for your care. Possible complications of diabetes include possible loss of vision, increased risks ofheart attack and stroke, and kidney failure. Your goals for your diabetic management are to keep your HgbA1c less than 7.0, your BP less than 130/80, and to maintain a healthy weight with a BMI of less than 26. We are working together to achieve these goals with the following plan of healthier diet, increased physical activity level, and medication understanding and compliance. Barriers to these goals have been discussed. HTN Possible complications of uncontrolled hypertension include stroke, congestive heart failure, heartattack, loss of vision, and kidney failure. Please complete labs as directed and call our office inone week if you have not received your lab results. Patient is encouraged to reduce salt in diet and to exercise at least 150 minutes per week. Avoid tobacco use and alcohol consumption. Please take all medications as prescribed. documented in this [facility]07-09-2024 History of Present illness Narrative* Rachel Jolley MD - 05/10/2024 2:00 PM EDT HEMATOLOGY/ONCOLOGY CLINIC NOTE HPI: Recent admission in [facility] on 04/11 for abdominal pain, A-fib and low BP, found to have sepsis + fluid overload and treated with antibiotics and diuretics. Since discharge, she has been doing ok, improving slowly. No other new concerns, tolerating the teclistamab well. No skin rash, no bleeding or bruising, no nausea or vomiting. No new fevers, night sweats, bone aches/pains, decreased appetite or weight loss.On acyclovir and bactrim for ID ppx. Rest ROS negative. Oncology History and Treatment synopsis Oncology History Overview Note Referral from Dr. Marinelli at [facility]. MGUS since 2005 Followed at [facility] by Dr. Kumari, and [...] both hips 800 cGy 04/10/2020 Velcade dex Jennifer 07/31/2021 Radiation to soff tissue area of hip 3000 cGray 08/30/2021 Jennifer Rev 12/2021 Not a candidate for transplant (pancytopenia/liver cirrhosis) 12/2021 Jennifer Pomalidomide ->marrow suppression 07/2022 carfilzomib cyclophosphamide -> marrow suppression 05/24 Bmbx small percentage of plasma cells; hypocellular. Since the marrow was obtained in what waspossibly radiation field this may not be entirely premium service representative. Also clonal evolution in the marrow with the most recent marrow showing additional cytogenetic abnormalities. 07/23/23 Restaging labs: free lambda light chain 35.95 mg/dL (up from 5.65 mg/dL in December 2022) and free-lambda M-spike of 0.1 g/dL Myeloma responding (lambda chains <0.17) 07/23/23 Restaging labs: free lambda light chain 35.95 mg/dL (up from 5.65 mg/dL in December 2022) and free-lambda M-spike of 0.1 g/dL Teclistamab ramp-up (08/04-08/06-08/09/23): complicated grade-I CRS (fevers) and ICANS (suzanna ICE score 8/10) C2D1 teclistamab weekly (08/17/23, 08/25/23, 09/01/23, 09/08/23). Changed threshold notification forplt <35. 09/08/23 K/L ratio 0.01; IgG 338. SPEP pending. C3D1 teclisitimab weekly beginning 09/15/23- held due to Covid. 09/08/23 SPEP -no M protein 09/29/23 K/L chain ratio unable to calculate 11/17/23 IgG 526, IgA <7, IgM <5. SPEP and K/L chain ratio pending February 2024 restart teclistamab after long interrupton for COVID February 22 - b/o excellent response - move to every other week. Multiple myeloma (Multi) 08/03/2023 Initial Diagnosis Multiple myeloma (CMS/HCC) 08/04/2023 - 09/08/2023 Chemotherapy Teclistamab ramp-up (08/04-08/06-08/09/23): complicated grade-I CRS (fevers) and ICANS (suzanna ICE score 8/10) C2D1 teclistamab weekly (08/17/23, 08/25/23, 09/01/23, 09/08/23). Changed threshold notification for plt <35. 09/08/23 K/L ratio 0.01; IgG 338. SPEP pending. C3D1 teclisitimab weekly beginning 09/15/23. (Held 09/15, 09/22 09/29 10/06 due Covid + on 09/12/23. Treated with Paxlovid in [place] Plan to reassess and proceed with C3D1 with ongoing resolution of sx. Teclistamab (Weekly), 28 Day Cycles 11/18/2023 - 03/08/2024 Chemotherapy -2nd teclistamab ramp up C1D1 started on 11/18/23; then 11/20/23 and 11/22/23. C2D1 11/27/23 C2D8 12/08/23 (delayed 10 days to resume appt on Tuesdays) C2D15 12/15/23 C2D22 and 28; C3D1 held due to Covid. C3D8 01/12/24 C3D15 01/19/24 C3D22 and D28 held due to persistent cough. C4D1 Restart. Teclistamab (Weekly), 28 Day Cycles 03/22/2024 - Chemotherapy Teclistamab (Weekly), 28 Day Cycles Multiple myeloma not having achieved remission (Multi) 10/20/2023 Initial Diagnosis Multiple myeloma not having achieved remission (CMS/HCC) PMH: Past Medical History: Diagnosis Date Aortic aneurysm (CMS-HCC) Aortic stenosis COPD (chronic obstructive pulmonary disease) (Multi) Diabetes mellitus (Multi) Fibromyalgia GERD (gastroesophageal reflux disease) HLD (hyperlipidemia) Hypertension Iron deficiency Liver disease KAPADIA (nonalcoholic steatohepatitis) Neuropathy PSH: Past Surgical History: Procedure Laterality Date APPENDECTOMY CARPAL TUNNEL RELEASE Bilateral CHOLECYSTECTOMY ELBOW SURGERY Bilateral HERNIA REPAIR HYSTERECTOMY KNEE ARTHROSCOPY W/ MENISCAL REPAIR Bilateral SH: Social History Tobacco Use Smoking status: Former Current packs/day: 0.00 Average packs/day: 3.0 packs/day for 26.7 years (80.2 ttl pk-yrs) Types: Cigarettes Start date: 11/02/1976 Quit date: 08/02/2003 Years since quittin.7 Passive exposure: Past Smokeless tobacco: Never Substance Use Topics Alcohol use: Not Currently reports no history of drug use. CURRENT MEDS: Current Outpatient Medications on File Prior to Visit Medication Sig Dispense Refill acyclovir (Zovirax) 400 mg tablet Take 1 tablet (400 mg) by mouth 2 times a day. 180 tablet 1 albuterol 90 mcg/actuation inhaler Inhale 2 puffs every 4 hours if needed for shortness of breath or wheezing. atorvastatin (Lipitor) 80 mg tablet Take 1 tablet (80 mg) by mouth once daily. emzrqwfuac-ylvwcgqt-nlcbzqzkgr (Breztri Aerosphere) 160-9-4.8 mcg/actuation HFA aerosol inhaler Inhale 2 puffs 2 times a day. carvedilol (Coreg) 12.5 mg tablet Take 1 tablet (12.5 mg) by mouth 2 times daily (morning and late afternoon). cholecalciferol (Vitamin D-3) 125 MCG (5000 UT) capsule Take 1 capsule (125 mcg) by mouth once daily. cyanocobalamin, vitamin B-12, 1,000 mcg tablet, sublingual Place 1 tablet (1,000 mcg) under the tongue once daily. EPINEPHrine 0.3 mg/0.3 mL injection syringe fluticasone (Flonase) 50 mcg/actuation nasal spray Administer 1 spray into each nostril once daily as needed for rhinitis. Shake gently. Before first use, prime pump. After use, clean tip and replacecap. gabapentin (Neurontin) 400 mg capsule TAKE 1 CAPSULE ORALLY THREE TIMES DAILY FOR PAIN FOR 30 DAYS lisinopril 5 mg tablet Take 1 tablet (5 mg) by mouth once daily. melatonin 1 mg tablet Take 2 tablets (2 mg) by mouth once daily at bedtime. metFORMIN (Glucophage) 500 mg tablet Take 1 tablet (500 mg) by mouth 1 time. naloxone (Narcan) 4 mg/0.1 mL nasal spray Administer 1 spray (4 mg) into affected nostril(s) if needed for opioid reversal. May repeat every 2-3 minutes if needed, alternating nostrils, until medicalassistance becomes available. 2 each 0 OLANZapine (ZyPREXA) 2.5 mg tablet Take 1 tablet (2.5 mg) by mouth once daily at bedtime. omeprazole (PriLOSEC) [address] capsule Take 1 capsule (40 mg) by mouth once daily. Do not crush or chew. ondansetron ODT (Zofran-ODT) 8 mg disintegrating tablet Take 1 tablet (8 mg) by mouth every 8 hoursif needed for vomiting or nausea. oxyCODONE (Roxicodone) 10 mg immediate release tablet Take 1 tablet (10 mg) by mouth 4 times a day as needed for severe pain (7 - 10). potassium chloride ER (Micro-K) 10 mEq ER capsule Take 1 capsule (10 mEq) by mouth once daily. predniSONE (Deltasone) 20 mg tablet sulfamethoxazole-trimethoprim (Bactrim DS) 800-160 mg tablet Take 1 tablet by mouth once a day on Thursday, Thursday, and Thursday. 12 tablet 0 SUMAtriptan (Imitrex) 50 mg tablet Take 1 tablet (50 mg) by mouth 1 time if needed for migraine. May repeat dose once in 2 hours if no relief. Do not exceed 2 doses in 24 hours. 4 tablet 0 DULoxetine (Cymbalta) [address] capsule Take 1 capsule (60 mg) by mouth once daily. 30 capsule 0 semaglutide (Ozempic) 0.25 mg or 0.5 mg (2 mg/3 mL) pen injector Inject 0.5 mg under the skin 1 (one) time per week. On Fridays No current facility-administered medications on file prior to visit. PHYSICAL EXAM: BP 96/50 (BP Location: Left arm, Patient Position: Sitting, BP Cuff Size: Large adult) Pulse 69 Temp 35.3 C (95.5 F) (Skin) Resp 16 Wt 74 kg (163 lb 3.2 oz) SpO2 97% BMI 30.38 kg/m KPS: 80 Physical Exam Constitutional: Appearance: Normal appearance. She is normal weight. HENT: Head: Normocephalic and atraumatic. Nose: No congestion. Mouth/Throat: Mouth: Mucous membranes are dry. Pharynx: Oropharynx is clear. Eyes: Extraocular Movements: Extraocular movements intact. Conjunctiva/sclera: Conjunctivae normal. Pupils: Pupils are equal, round, and reactive to light. Cardiovascular: Rate and Rhythm: Normal rate and regular rhythm. Pulmonary: Effort: Pulmonary effort is normal. No respiratory distress. Breath sounds: Normal breath sounds. Musculoskeletal: Cervical back: Normal range of motion and neck supple. Skin: General: Skin is warm and dry. Neurological: Mental Status: She is alert. Psychiatric: Mood and Affect: Mood normal. Behavior: Behavior normal. LAB DATA: No components found for: CBC Lab Results Component Value Date WBC 2.2 (L) 05/10/2024 WBC 3.6 (L) 04/05/2024 WBC 2.5 (L) 03/22/2024 WBC 2.6 (L) 03/08/2024 WBC 1.9 (L) 02/23/2024 Lab Results Component Value Date HGB 8.7 (L) 05/10/2024 HGB 8.0 (L) 04/05/2024 HGB 8.0 (L) 03/22/2024 HGB 8.1 (L) 03/08/2024 HGB 8.4 (L) 02/23/2024 Lab Results Component Value Date PLT 59 (L) 05/10/2024 PLT 65 (L) 04/05/2024 PLT 38 (LL) 03/22/2024 PLT 39 (LL) 03/08/2024 PLT 45 (L) 02/23/2024 Lab Results Component Value Date GLUCOSE 86 05/10/2024 CALCIUM 8.7 05/10/2024 NA 140 05/10/2024 K 4.1 05/10/2024 CO2 28 05/10/2024 CL 105 05/10/2024 BUN 15 05/10/2024 CREATININE 0.66 05/10/2024 Lab Results Component Value Date CREATININE 0.66 05/10/2024 CREATININE 0.48 (L) 04/05/2024 CREATININE 0.43 (L) 03/22/2024 CREATININE 0.46 (L) 03/08/2024 CREATININE 0.50 02/23/2024 Lab Results Component Value Date ALT 16 05/10/2024 AST 26 05/10/2024 ALKPHOS 158 (H) 05/10/2024 BILITOT 1.0 05/10/2024 Myeloma Labs Lab Results Component Value Date IGG 398 (L) 05/10/2024 IGG 508 (L) 04/05/2024 IGG 678 (L) 02/16/2024 IGG 461 (L) 12/29/2023 IGG 526 (L) 11/17/2023 Lab Results Component Value Date IGA <7 (L) 05/10/2024 IGA <7 (L) 04/05/2024 IGA <7 (L) 02/16/2024 IGA <7 (L) 12/29/2023 IGA <7 (L) 11/17/2023 Lab Results Component Value Date IGM <5 (L) 05/10/2024 IGM <5 (L) 04/05/2024 IGM <5 (L) 02/16/2024 IGM <5 (L) 12/29/2023 IGM <5 (L) 11/17/2023 Lab Results Component Value Date KAPPA <0.08 (L) 04/05/2024 KAPPA <0.08 (L) 02/16/2024 KAPPA <0.08 (L) 12/29/2023 KAPPA <0.08 (L) 11/17/2023 KAPPA <0.08 (L) 09/08/2023 Lab Results Component Value Date LAMBDA <0.17 (L) 04/05/2024 LAMBDA <0.17 (L) 02/16/2024 LAMBDA <0.17 (L) 12/29/2023 LAMBDA <0.17 (L) 11/17/2023 LAMBDA <0.17 (L) 09/08/2023 Lab Results Component Value Date [facility] 04/05/2024 Comment: One or more analytes used in this calculation is outside of the analytical measurement range. Calculation cannot be performed. [facility] 02/16/2024 Comment: One or more analytes used in this calculation is outside of the analytical measurement range. Calculation cannot be performed. [facility] 12/29/2023 Comment: One or more analytes used in this calculation is outside of the analytical measurement range. Calculation cannot be performed. [facility] 11/17/2023 Comment: One or more analytes used in this calculation is outside of the analytical measurement range. Calculation cannot be performed. [facility] 09/08/2023 Comment: One or more analytes used in this calculation is outside of the analytical measurement range. Calculation cannot be performed. ASSESSMENT AND PLAN 68 y/o heavily pretreated MM patient presents in follow up after several infections. Her teclistamab has been held due to the infections a couple of times. She was recently admitted with concerns forsepsis 2 weeks ago. Her myeloma labs from today are pending, but labs from last month continue to show good remission. We discussed moving the teclistamab to every 3 weeks given good response and increased risk of immunosuppression and infections with the medication. We will continue 2 weekly this cycle and change toevery 3 weeks from next cycle. Multiple Myeloma Multiply relapsed. Started treatment with teclistamab on 08/03/23 Well tolerated Held in the past b/o covid and subsequently sinusitis Lambda has declined to <0.17 Restarted in February 2024 Has excellent ongoing response Switch to teclistamab [id number] from next cycle 2. 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 3. COVID - September 2023- resolved. But with multiple recurrences in late winter and spring ID Supportive care Will continue Acyclovir and Bactrim - continue IVIG for IGG<400, did not get today, will make sure she gets it with next infusion appt. Duration of Visit This is a Established visit. I spent 40 minutes in the care of this patient, including preparing, chart and results review, face time and charting. Patient seen and discussed with Dr Carolina MD Fellow Bone Marrow Transplant [facility] Associated attestation - Supa Lindquist MD PhD - 05/11/2024 9:47 PM EDT I saw and evaluated the patient. I personally obtained the salazar and critical portions of the historyand physical exam or was physically present for salazar and critical portions performed by the resident/fellow. I reviewed the resident/fellow's documentation and discussed the patient with the resident/f pao. I agree with the resident/fellow's medical decision making as documented in the note. documented [facility] Work Phone: [phone] Discharge summary Author Hortensia Clinton [facility] April 19, 2024 1:23pmNote Date/TimeJune 2023 1:[place] [address] Discharge Summary Signed Patient: Mojgan Pérez MR#: [id number] : 1955 Acct:[id number] Age/Sex: 68 / F Adm Date: 4 Loc: Room: [address] [place] [address]: Hortensia Clinton MD Copies to: MD Hortensia Amezquita MD~ Providers Date of Discharge: 04/19/24 Discharging Provider: Hortensia Clinton Primary Care Provider: Yinka Lopez Consults: 04/11/24 03:52 Consult to Gastroenterology Routine Comment: Consulting Provider: [facility] - Gastroenterology Reason For Exam: SBP Has Provider Been Notified: Yes Date of Notification: 04/11/24 Time of Notification: 08:25 04/11/24 07:15 Consult to Infectious Diseases Routine Comment: Consulting Provider: Lakeisha Miller Reason For Exam: bacteremia, SBP Has Provider Been Notified: Yes Date of Notification: 04/11/24 Time of Notification: 08:30 04/11/24 12:08 Consult to Pulmonology Routine Comment: Consulting Provider: Ritchie Mcmillan Reason For Exam: CC management Has Provider Been Notified: Yes Date of Notification: 04/11/24 Time of Notification: 12:15 04/13/24 07:16 Consult to Cardiology Routine Comment: Consulting Provider: [facility] - Cardiology Reason For Exam: Afib with RVR Has Provider Been Notified: Yes Date of Notification: 04/13/24 Time of Notification: 08:11 04/15/24 09:27 Consult to Occupational Therapy Routine Comment: Physician Instructions: Consult to OT for:: Evaluation and Treat Consult to Physical Therapy Routine Comment: Physician Instructions: Consult to PT for:: Evaluation and Treat Discharge Diagnosis (1) Acute alteration in mental status: (2) Bacteremia: (3) Spontaneous bacterial peritonitis: (4) Paroxysmal atrial fibrillation: (5) Acute metabolic encephalopathy: (6) Septic shock: (7) Rhinovirus infection: (8) Maxillary sinusitis, chronic: (9) DM2 (diabetes mellitus, type 2): (10) History of tobacco abuse: (11) Pancytopenia: (12) Immunosuppression: (13) Multiple myeloma: Final Diagnosis Final Discharge Diagnosis: As listed above and others that are not listed Summary Hospital Course Hospital course: This is Pérez is a 68-year-old female with a known diagnosis of nonalcoholic liver cirrhosis and multiple myeloma for which she is receiving chemotherapy by an oncologist at the [facility]. Patient is known to have immunosuppressive state. Patient came in and was found to have sepsis, septic s hock and bacteremia. Blood cultures positive for Enterobacter. Ascitic fluid analysis came back also consistent with Enterobacter infection. She was startedon intravenous antibiotic. She is recommended to continue cefepime and intravenously for 2 more weeks by ID team. Patient was stabilized and transferred out of the intensive care unit. Electrolytes abnormalities which were repleted Paroxysmal A-fib converted back to sinus rhythm. Industrial Paramedic discontinued amiodarone. He did not recommend the patient to be on anticoagulation due to her severe thrombocytopenia. The patient is to follow-up with him in the outpatient setting for further cardiovascular disease management. Diabetes, fair control. Liver cirrhosis with ascites and edema. Venous studies negative for DVT. Patient is to follow-up with her refinisher. Multiple myeloma. Currently patient is receiving care by [facility] oncologist. Patient is tofollow-up with him. Hypertension, stable Pancytopenia secondary to multiple myeloma and chemotherapy. Patient is to hold chemotherapy until after completion of IV antibiotic. Patient has multiple complex medical issues as listed above and others that are not listed. All appear to be stable. I do not have any clear or strong clinical justification to extend inpatient hospitalization. Patient however will require close and frequent monitoring as well as additional work-up, investigation and therapeutic intervention that could take place from this pointon post discharge. That is to prevent relapse, decompensation, rehospitalization and other medical implications. I instructed patient to ask her primary care doctor to obtain [facility] record entirely to address abnormalities seen on labs and imagingthat I have and have not addressed during this hospitalization, follow- up on pending blood work, imaging and pathology is if available and to follow-up on needed medical care in the outpatient setting. Time Spent with Patient Time spent providing/coordinating discharge services (# min): 60 Discharge Plan Discharge Plan Patient Disposition: Home Health [facility] Activity: Ambulate as Tolerated Diet: Diabetic Additional Instructions: Home health to manage care: - Full code BMP and CBC to be drawn by home health care nurse every Thursday and for 3 weeks and the result is to be communicated to PCP for medications adjustment. I may not have addressed or treated all of your medical illnesses or the abnormal blood work or imaging studies during this hospitalization. Please ask your primary care provider to obtain [facility] records entirely to follow up on all of the abnormal physical, laboratory, and imaging findings thatI have not addressed. Please return back to the emergency room or seek medical attention if your symptoms worsen or return. Check your blood sugar 3 times a day before meals. Document these numbers on a blood glucose log and bring them with you to your follow-up appointmentwith your primary care doctor. Communicate with your primary care doctor or clinical safety specialist if your blood sugar is under 100 or above 300 on 2 consecutive checks. Communicate with your primary care doctor or clinical safety specialist if you have anyquestions about your diabetes medications. Signs of a low blood sugar include sweating, racing heart, dizziness and/or weakness. Check your blood sugar if you have any of the symptoms. Discharging you from [facility] does not mean that your medical care ends here and now. You may still need additional monitoring, work up, investigation, and treatment plan to be handled from this point on by out patient providers including your primary care provider and specialists. For any medication question, please contact your retail pharmacist or your primary care provider. Please follow-up with your liver specialist. Please follow-up with your multiple myeloma specialist. Thank you. Instructions: Know your Meds Prescriptions: New cefepime 2 gram Recon Soln 2 g IV Q8H 14 Days Qty: 112 0RF spironolactone 50 mg Tablet 50 mg PO DAILY Qty: 30 1RF furosemide 20 mg Tablet 20 mg PO DAILY.8A Qty: 30 1RF magnesium oxide 420 mg tablet 420 mg PO DAILY Qty: 30 1RF Continued potassium chloride 10 mEq capsule, extended release See Rx Instructions .ROUTE .COMPLEX Qty: 90 1RF Dose Instruction: TAKE 1 CAPSULE BY MOUTH EVERY DAY Rx Instructions: TAKE 1 CAPSULE BY MOUTH EVERY DAY carvedilol 12.5 mg tablet 12.5 mg PO BID Patient Comments: TAKE 1 TABLET BY MOUTH EVERY DAY duloxetine 60 mg capsule,delayed release(DR/EC) 60 mg PO DAILY Patient Comments: albuterol sulfate 90 mcg/actuation Hfa Aerosol Inhaler 2 puff INHALATION Q4H PRN (Reason: Shortness Of Breath) acyclovir 400 mg Tablet 400 mg PO BID 90 Days Qty: 180 3RF sulfamethoxazole-trimethoprim 800-160 mg Tablet 1 tab PO QMWF 90 Days Qty: 36 3RF cyanocobalamin (vitamin B-12) 1,000 mcg tablet, sublingual 1,000 mcg sublingual DAILY Patient Comments: DISSOLVE 1 TABLET UNDER THE TONGUE ONCE A DAY fluticasone propionate 50 mcg/actuation [place],Suspension 1 spray INTRANASAL DAILY PRN (Reason: Allergy Symptoms) Rx Instructions: administer into each nostril cholecalciferol (vitamin D3) 125 mcg (5,000 unit) capsule 125 mcg PO DAILY Rx Instructions: FreeTextSig: as directed Orally 2 capsules 4 days a week, 3 capsules 3 days aweek.; Note: Source Status: Not-Taking\PRN; Provider: Gallo Wilson ( ) epinephrine 0.3 mg/0.3 mL auto-injector 0.3 mg IM ONCE PRN (Reason: anaphylaxis) lisinopril 5 mg tablet 5 mg PO DAILY omeprazole 40 mg capsule,delayed release(DR/EC) 40 mg PO DAILY Rx Instructions: FreeTextSi capsule Orally Once a day; Note: Source Status: Taking; Provider: Gallo Wilson ( ) oxycodone 10 mg tablet 10 mg PO QID PRN (Reason: Pain) sumatriptan succinate 50 mg tablet See Rx Instructions PO .COMPLEX Rx Instructions: take 1 tab at onset of headache; if no relief may repeat 1 tab after at least2 hrs; max = 4 tabs/24hr PO naloxone 4 mg/actuation spray,non-aerosol 1 spray intranasal Q2-3M PRN (Reason: opioid overdose) Rx Instructions: spray 1 dose into ONE nostril; alternate nostrils w each dose until help arrives melatonin 1 mg tablet 2 mg PO QHS albuterol sulfate 2.5 mg /3 mL (0.083 %) solution for nebulization 2.5 mg inhalation Q6HR Changed atorvastatin 80 mg tablet 40 mg PO DAILY Qty: 1 0RF Patient Comments: TAKE 1 TABLET BY MOUTH EVERY DAY FOR 90 DAYS metformin 500 mg Tablet Extended Release 24 Hr 500 mg PO DAILY Qty: 1 0RF gabapentin 400 mg capsule 400 mg PO BID 30 Days Qty: 90 2RF Held Tecvayli 10 mg/mL solution subcut Hold Instructions: Resume on 05/06/24. Hold until recommended to be resumed by your primary care doctor and your multiple myeloma specialist Rx Instructions: patient is unsure of dose at this time Discontinued Ozempic 0.25 mg or 0.5 mg(2 mg/1.5 mL) Pen Injector 1 mg SUBCUT QWEEK ondansetron HCl 8 mg tablet 8 mg PO Q8H PRN (Reason: nausea and vomiting) Rx Instructions: FreeTextSig: TAKE 1 TABLET BY MOUTH 3 TIMES A DAY NEEDED FOR NAUSEA Oral; Note: Source Status: Taking; Refills: 3; Qty: 30 Unspecified; Provider: YVES HICKS Other Ambulatory Orders: Initiate Home Health (Routine) Timeframe: 1 Day Location: Determined by Patient Ordered By: Modesto Aquino Follow Up: João Belcher MD [Active Staff] - 05/30/24 1:00 pm Fabiola Palumbo NP-C [Referring] - 04/21/24 2:00 pm (Post hospital appointment. Please call to reschedule if needed.) Exam Physical Exam Vital Signs: Temp Pulse Resp BP Pulse Ox O2 Del Method O2 Flow Rate 98.4 F 73 20 134/79 97 Room Air 2 04/19/24 04:46 04/19/24 13:16 04/19/24 13:16 04/19/24 08:34 04/19/24 08:34 04/19/24 08:34 04/18/24 04:00 Narrative: [pt is awake and alert. oriented to place, time and person HEENT: Pale conjunctiva and NL buccal mucosa Neck: Supple, no tenderness Endocrine: No Thyromegaly. Vascular: No JVD or carotid bruit. Lymphatic: No cervical lymphadenopathy. Chest: CTA no DTP. Heart RRR, no extra sound or murmur. Abd: Soft, diffuse mild tenderness. No guarding, no rebound LE: No cyanosis or clubbing, no varices. +1 pitting edema with calf tenderness Neuro: A A O. Nl speech, comprehension and attention. Nl and symetrical motor and tone examination through out. []] Diagnostic Studies Completed and Pending Studies Pending studies at discharge: 04/20/24 05:00 Basic Metabolic Panel [CHEM] IN AM Magnesium [CHEM] IN AM 04/20/24 09:00 Complete Blood Count Auto Diff DAILY 04/21/24 05:00 Basic Metabolic Panel [CHEM] IN AM Magnesium [CHEM] IN AM Labs on day of discharge: 04/19/24 07:00: Corrected WBC 3.4 L, Uncorrected WBC Count 3.4 L, RBC 3.38 L, Hgb 8.8 L, Hct 26.9 L, MCV 79.6 L, MCH 26.1, MCHC 32.8, RDW 22.1 H, Plt Count 42 L, MPV 8.9, Neut % (Auto) 61.5, Lymph % (Auto) 18.3, Hodgeman % (Auto) 15.9, Eos % (Auto) 4.1, Baso % (Auto) 0.2, Nucleat RBC Rel Count 0.1, Neut # (Auto) 2.1, Lymph # (Auto) 0.6 L, Hodgeman # (Auto) 0.5, Eos # (Auto) 0.1, Baso # (Auto) 0.0, Platelet Estimate Decreased, Plt Morphology Comment Normal, RBC Morphology N/A, Polychromasia Slight, Hypochromasia Moderate, Poikilocytosis Slight, Anisocytosis Moderate, Microcytosis Slight, Ovalocytes Slight, PHA Creatinine Clear 70.22, Sodium 140, Potassium 3.3 L, Chloride 105, Carbon Dioxide 28.7, Ani on Gap 9.6, BUN 18, Creatinine 0.51 L, Est GFR (CKD-EPI) > 60.0, Glucose 118 H, Calcium 8.8, Phosphorus 2.6, Magnesium 1.8 L, Total Bilirubin 2.1 H, Direct Bilirubin 0.70 H, Indirect Bilirubin 1.4, AST 30, ALT 12, Alkaline Phosphatase 151 H, Total Protein 5.4 L D, Albumin 3.9, Globulin 1.5, Albumin/Globulin Ratio 2.6 04/18/24 20:00: Potassium 3.6 04/18/24 11:10: Hepatitis A IgM Ab Negative, Hep Bs Antigen Negative, Hep B Core IgM Ab Negative, Hepatitis C Ab (EIA) Non reactive, HCV RNA (PCR) IU/mL N/A, HCV RNA PCR copy cutter log10 N/A, Hepatitis C Interp Documented By: Hortensia Clinton MD 04/19/24 1319 Signed By: <Electronically signed by Hortensia Clinton MD> 04/19/24 1323 [facility] Work Phone: [phone] 120-750706-18-2024 Progress note Author Lakeisha Miller [facility] April 19, 2024 9:45amNote Date/TimeJune 2023 9:45[place] [address] Infect. Disease Progress Note Signed Patient: Mojgan Pérez MR#: [id number] : 1955 Acct:[id number] Age/Sex: 68 / F Adm Date: 4 Loc: Room: [address] [place] [address] Type: ADM IN Attending Dr: Hortensia Clinton MD Copies to: ~ Date of Service: 04/19/2024 Subjective Interval history: Patient states the Lasix significantly helped her edema from her lower legs yesterday. Denies any new complaints today. Exam Physical Exam Vital Signs: Temp Pulse Resp BP Pulse Ox O2 Del Method O2 Flow Rate 98.4 F 75 20 134/79 97 Room Air 2 04/19/24 04:46 04/19/24 08:34 04/19/24 08:34 04/19/24 08:34 04/19/24 08:34 04/19/24 08:34 04/18/24 04:00 Narrative: General: Alert, awake, oriented X3. Slow speech noted. Skin: No rash or lesions noted. HEENT: head atraumatic, face symmetrical. No lymphadenopathy. Pulm: Clear to auscultation bilaterally. Normal respiratory effort. No wheezing, rhonchi, or crackles noted on exam. Chest wall port on right accessed; non tender Cardio: Regular rate and rhythm Abdomen: Normal visual inspection. Soft. Bowel sounds normal. Still has tenderness with palpation. Musculoskeletal: Moves all extremities, normal strength all extremities. Neuro: Pt alert, oriented x3. CN's II-XII intact bilaterally. normal sensation. Objective Labs CBC/BMP: CBC, BMP 04/18/24 04/18/24 04/19/24 11:10 20:00 07:00 Corrected WBC 3.8 3.4 L Uncorrected WBC Count 3.8 3.4 L RBC 3.53 L 3.38 L Hgb 9.0 L 8.8 L Hct 27.9 L 26.9 L Plt Count 42 L 42 L Sodium 140 Potassium 3.6 3.3 L Chloride 105 Carbon Dioxide 28.7 Anion Gap 9.6 BUN 18 Creatinine 0.51 L Calcium 8.8 Labs: 04/19/24 07:00 BUN 18 Creatinine 0.51 L Microbiology Microbiology: Microbiology - Results from entire visit 04/11/24 11:45 Blood - Port Blood Culture - Final NO GROWTH 5 DAYS 04/11/24 10:33 Blood - Right Antecubital Blood Culture - Final NO GROWTH 5 DAYS 04/11/24 03:30 Ascites Fluid Aerobic Culture - Final Enterobacter cloacae complex 04/11/24 03:30 Ascites Fluid Anaerobic Culture - Final No Anaerobes Isolated 3 Days 04/11/24 03:30 Ascites Fluid Gram Stain - Final 04/10/24 17:20 Blood - Other Blood Culture - Final Enterobacter cloacae complex 04/10/24 17:20 Blood - Other Bacterial ID (NA Multiplex Assay) - Final 04/11/24 03:36 Sputum - Expectorated Aerobic Culture - Final Moderate Normal Respiratory Alysha 2 Days 04/11/24 03:36 Sputum - Expectorated Gram Stain - Final 04/11/24 03:55 Nasopharyngeal Respiratory Panel (PCR) - Final Allergies and Medications Allergies and Active Meds Allergies diclofenac [From Voltaren] Allergy (Unknown, Verified 04/10/24 17:08) Hives doxycycline [From Vibramycin] Allergy (Unknown, Verified 04/10/24 17:08) Hives moxifloxacin [From Avelox] Allergy (Unknown, Verified 04/10/24 17:08) Hives erythromycin base [From E-Mycin] Allergy (Verified 04/10/24 17:08) Hives latex Allergy (Verified 04/10/24 17:08) Unknown Reaction Quinolones Allergy (Verified 04/10/24 17:08) Unknown Reaction tetracycline Allergy (Verified 04/10/24 17:08) Unknown Reaction Active Medications Acyclovir (Acyclovir 400 Mg Tablet) 400 mg PO BID [facility] Last Admin: 04/19/24 08:37 Dose: 400 mg Albuterol (Albuterol Hfa 60 Puff/8 Gram Inhaler) 2 puff INHALATION Q4H PRN PRN Reason: Shortness Of Breath Stop: 04/10/25 23:14 Albuterol (Albuterol Neb 2.5 Mg/3 Ml Vial.Neb) 2.5 mg INHALATION Q6HR [facility] Stop: 04/11/25 00:00 Last Admin: 04/19/24 06:16 Dose: 2.5 mg Atorvastatin Calcium (Atorvastatin 80 Mg Tablet) 80 mg PO DAILY [facility] Stop: 04/11/25 08:59 Last Admin: 04/18/24 08:16 Dose: 80 mg Benzonatate (Benzonatate 100 Mg Capsule) 100 mg PO TID PRN PRN Reason: Cough Stop: 04/13/25 17:24 Last Admin: 04/19/24 08:37 Dose: 100 mg Carvedilol (Carvedilol 12.5 Mg Tablet) 12.5 mg PO BID.WITH.MEALS [facility] Stop: 04/11/25 07:59 Last Admin: 04/19/24 08:37 Dose: 12.5 mg Cyanocobalamin (Cyanocobalamin 1,000 Mcg Tablet) 1,000 mcg PO DAILY [facility] Stop: 04/11/25 08:59 Last Admin: 04/19/24 08:37 Dose: 1,000 mcg Cyclobenzaprine HCl (Cyclobenzaprine 5 Mg Tablet) 5 mg PO Q8HR PRN PRN Reason: Muscle Spasm Stop: 04/12/25 13:36 Last Admin: 04/19/24 08:36 Dose: 5 mg Epinephrine HCl (Epinephrine/Pf 1 Mg/Ml Ampul) 0.3 mg IM ONCE PRN PRN Reason: anaphylaxis Fluticasone Propionate (Fluticasone Propionate Park 120 Park/16 Gm Bottle) 1 spray INTRANASAL DAILY PRN PRN Reason: Allergy Symptoms Stop: 04/10/25 23:14 Furosemide (Furosemide 20 Mg Tablet) 20 mg PO DAILY.8A [facility] Stop: 04/18/25 07:59 Last Admin: 04/19/24 08:37 Dose: 20 mg Gabapentin (Gabapentin 400 Mg Capsule) 400 mg PO TID [facility] Stop: 04/11/25 08:59 Hydromorphone HCl (Hydromorphone 0.5 Mg/0.5 Ml Syringe) 0.5 mg IV-PUSH Q2H PRN PRN Reason: Pain Last Admin: 04/17/24 12:40 Dose: 0.5 mg Cefepime HCl (Maxipime) 2 gm in 50 mls @ 12.5 mls/hr IV Q8H [facility] Last Admin: 04/19/24 06:55 Dose: 12.5 mls/hr Ipratropium [place] (Ipratropium [place] 0.5 Mg/2.5 Ml Vial.Neb) 0.5 mg INHALATION Q4H PRN PRN Reason: Shortness Of Breath Or Wheezing Stop: 04/14/25 14:33 Lactulose (Lactulose 20 Gm/30 Ml Udc) 20 gm PO TID [facility] Stop: 04/14/25 13:59 Last Admin: 04/19/24 08:36 Dose: 10 gm Melatonin (Melatonin 3 Mg Tablet) 3 mg PO QHS [facility] Stop: 04/11/25 21:59 Last Admin: 04/18/24 21:46 Dose: 3 mg Multi-Ingredient Mouthwash/Gargle (Magic Mouthwash With Lidocaine) 5 ml PO Q6H PRN PRN Reason: Mouth Sore Pain Stop: 04/15/25 20:13 Last Admin: 04/15/24 22:28 Dose: 5 ml Naloxone HCl (Naloxone Hcl 2 Mg/2 Ml Syringe) 2 mg INHALATION Q2M PRN PRN Reason: opioid overdose Stop: 04/10/25 23:14 Oxycodone HCl (Oxycodone Ir 5 Mg Tablet) 10 mg PO Q6HR PRN PRN Reason: Pain Stop: 04/10/25 23:14 Last Admin: 04/19/24 04:28 Dose: 10 mg Pantoprazole Sodium (Pantoprazole 40 Mg Tablet.Dr) 40 mg PO BID [facility] Stop: 04/11/25 08:59 Last Admin: 04/19/24 08:37 Dose: 40 mg Potassium Chloride (Potassium Chloride Er 10 Meq Capsule.Er) 10 meq PO DAILY [facility] Stop: 04/11/25 08:59 Last Admin: 04/19/24 08:37 Dose: 10 meq Prochlorperazine Edisylate (Prochlorperazine Edisylate 10 Mg/2 Ml Vial) 5 mg IV- PUSH Q4H PRN PRN Reason: Nausea And Vomiting Stop: 04/11/25 14:30 Last Admin: 04/18/24 11:51 Dose: 5 mg Sodium Chloride (Sodium Chloride 0.9 % 10 Ml Syringe) 0 ml IV-PUSH PRN PRN PRN Reason: Flush Stop: 04/10/25 17:05 Last Admin: 04/18/24 08:00 Dose: 5 ml Spironolactone (Spironolactone 50 Mg Tablet) 50 mg PO DAILY [facility] Stop: 04/17/25 08:59 Last Admin: 04/19/24 08:37 Dose: 50 mg A&P - Infectious Disease Assessment/Plan (1) Acute alteration in mental status: (2) Bacteremia: (3) Spontaneous bacterial peritonitis: Plan Patient continues on cefepime 2 g Q8. Planning a 2-week treatment course. Patient has a chest wall port that we are using this at this time and we will plan to use this even upon discharge. Patient tells me she plans on going home. She is on a every 8 hour drug at this time which may make frequencyof this antibiotic and home use more difficult. Other option that we have is to transition to ertapenem which would just be therefore once daily. In the meantime while she remains here in the hospital as I am not sure when her discharge date is will continue cefepime tentative stop date of antibiotic treatment will be 04/25. Patient also therefore may need secondary prophylaxis for peritonitis given this episode. Documented By: Lakeisha Miller MD 04/19/2443 Signed By: <Electronically signed by MD Lakeisha Miller> 04/19/2441 [facility] Work Phone: 1(744) 527-110606-17-2024 Progress note Author Lakeisha Miller [facility] April 18, 2024 9:53amNote Date/TimeJune 2023 9:[address] [address] Infect. Disease Progress Note Signed Patient: Mojgan Pérez MR#: [id number] : 1955 Acct:[id number] Age/Sex: 68 / F Adm Date: 4 Loc: 3T Room: 4K9248-6 Type: ADM IN Attending Dr: Hortensia Clinton MD Copies to: ~ Date of Service: 04/18/2024 Subjective Interval history: Patient is doing okay and is now on 3T. Still states she has lower abdominal pain from a hernia that is chronic but also has abdominal pain from time to timein the upper area from her ascites/peritonitis. Patient has multiple family members in the room today. Patient has been tolerating cefepime without difficulty. Exam Physical Exam Vital Signs: Temp Pulse Resp BP Pulse Ox O2 Del Method O2 Flow Rate 97.8 F 83 20 125/71 96 Room Air 2 04/18/24 04:00 04/18/24 08:03 04/18/24 08:03 04/18/24 08:03 04/18/24 08:03 04/18/24 08:03 04/18/24 04:00 Narrative: General: Alert, awake, oriented X3. Slow speech noted. Skin: No rash or lesions noted. HEENT: head atraumatic, face symmetrical. No lymphadenopathy. Pulm: Clear to auscultation bilaterally. Normal respiratory effort. No wheezing, rhonchi, or crackles noted on exam. Chest wall port on right accessed; non tender Cardio: Regular rate and rhythm Abdomen: Normal visual inspection. Soft. Bowel sounds normal. Still has tenderness with palpation. Musculoskeletal: Moves all extremities, normal strength all extremities. Neuro: Pt alert, oriented x3. CN's II-XII intact bilaterally. normal sensation. Objective Labs CBC/BMP: CBC, BMP 04/17/24 04/18/24 08:38 06:30 Corrected WBC 3.7 L Uncorrected WBC Count 3.7 L RBC 3.65 Hgb 9.5 L Hct 29.3 L Plt Count 45 L Sodium 138 Potassium 2.9 L* Chloride 117 H Carbon Dioxide 23.3 Anion Gap 0.6 L BUN 17 Creatinine 0.86 Calcium 7.7 L Labs: 04/18/24 06:30 BUN 17 Creatinine 0.86 Microbiology Microbiology: Microbiology - Results from entire visit 04/11/24 11:45 Blood - Port Blood Culture - Final NO GROWTH 5 DAYS 04/11/24 10:33 Blood - Right Antecubital Blood Culture - Final NO GROWTH 5 DAYS 04/11/24 03:30 Ascites Fluid Aerobic Culture - Final Enterobacter cloacae complex 04/11/24 03:30 Ascites Fluid Anaerobic Culture - Final No Anaerobes Isolated 3 Days 04/11/24 03:30 Ascites Fluid Gram Stain - Final 04/10/24 17:20 Blood - Other Blood Culture - Final Enterobacter cloacae complex 04/10/24 17:20 Blood - Other Bacterial ID (NA Multiplex Assay) - Final 04/11/24 03:36 Sputum - Expectorated Aerobic Culture - Final Moderate Normal Respiratory Alysha 2 Days 04/11/24 03:36 Sputum - Expectorated Gram Stain - Final 04/11/24 03:55 Nasopharyngeal Respiratory Panel (PCR) - Final Allergies and Medications Allergies and Active Meds Allergies diclofenac [From Voltaren] Allergy (Unknown, Verified 04/10/24 17:08) Hives doxycycline [From Vibramycin] Allergy (Unknown, Verified 04/10/24 17:08) Hives moxifloxacin [From Avelox] Allergy (Unknown, Verified 04/10/24 17:08) Hives erythromycin base [From E-Mycin] Allergy (Verified 04/10/24 17:08) Hives latex Allergy (Verified 04/10/24 17:08) Unknown Reaction Quinolones Allergy (Verified 04/10/24 17:08) Unknown Reaction tetracycline Allergy (Verified 04/10/24 17:08) Unknown Reaction Active Medications Acyclovir (Acyclovir 400 Mg Tablet) 400 mg PO BID [facility] Last Admin: 04/18/24 08:16 Dose: 400 mg Albuterol (Albuterol Hfa 60 Puff/8 Gram Inhaler) 2 puff INHALATION Q4H PRN PRN Reason: Shortness Of Breath Stop: 04/10/25 23:14 Albuterol (Albuterol Neb 2.5 Mg/3 Ml Vial.Neb) 2.5 mg INHALATION Q6HR [facility] Stop: 04/11/25 00:00 Last Admin: 04/18/24 05:50 Dose: 2.5 mg Atorvastatin Calcium (Atorvastatin 80 Mg Tablet) 80 mg PO DAILY [facility] Stop: 04/11/25 08:59 Last Admin: 04/18/24 08:16 Dose: 80 mg Benzonatate (Benzonatate 100 Mg Capsule) 100 mg PO TID PRN PRN Reason: Cough Stop: 04/13/25 17:24 Last Admin: 04/18/24 08:16 Dose: 100 mg Carvedilol (Carvedilol 12.5 Mg Tablet) 12.5 mg PO BID.WITH.MEALS [facility] Stop: 04/11/25 07:59 Last Admin: 04/18/24 08:16 Dose: 12.5 mg Cyanocobalamin (Cyanocobalamin 1,000 Mcg Tablet) 1,000 mcg PO DAILY [facility] Stop: 04/11/25 08:59 Last Admin: 04/18/24 08:16 Dose: 1,000 mcg Cyclobenzaprine HCl (Cyclobenzaprine 5 Mg Tablet) 5 mg PO Q8HR PRN PRN Reason: Muscle Spasm Stop: 04/12/25 13:36 Epinephrine HCl (Epinephrine/Pf 1 Mg/Ml Ampul) 0.3 mg IM ONCE PRN PRN Reason: anaphylaxis Fluticasone Propionate (Fluticasone Propionate Park 120 Park/16 Gm Bottle) 1 spray INTRANASAL DAILY PRN PRN Reason: Allergy Symptoms Stop: 04/10/25 23:14 Furosemide (Furosemide 20 Mg Tablet) 20 mg PO DAILY.8A [facility] Stop: 04/18/25 07:59 Last Admin: 04/18/24 08:15 Dose: 20 mg Gabapentin (Gabapentin 400 Mg Capsule) 400 mg PO TID [facility] Stop: 04/11/25 08:59 Hydromorphone HCl (Hydromorphone 0.5 Mg/0.5 Ml Syringe) 0.5 mg IV-PUSH Q2H PRN PRN Reason: Pain Last Admin: 04/17/24 12:40 Dose: 0.5 mg Cefepime HCl (Maxipime) 2 gm in 50 mls @ 12.5 mls/hr IV Q8H [facility] Last Admin: 04/18/24 02:45 Dose: 12.5 mls/hr Magnesium Sulfate (Magnesium Sulf 4 Gm-*Swfi*) 4 gm in 100 mls @ 25 mls/hr IV ONCE ONE Stop: 04/18/24 12:54 Potassium Chloride 20 meq/ (Sodium Chloride) 260 mls @ 130 mls/hr IV ONCE ONE Stop: 04/18/24 10:54 Ipratropium [place] (Ipratropium [place] 0.5 Mg/2.5 Ml Vial.Neb) 0.5 mg INHALATION Q4H PRN PRN Reason: Shortness Of Breath Or Wheezing Stop: 04/14/25 14:33 Lactulose (Lactulose 20 Gm/30 Ml Udc) 20 gm PO TID [facility] Stop: 04/14/25 13:59 Last Admin: 04/18/24 08:15 Dose: 20 gm Melatonin (Melatonin 3 Mg Tablet) 3 mg PO QHS [facility] Stop: 04/11/25 21:59 Last Admin: 04/17/24 21:49 Dose: 3 mg Multi-Ingredient Mouthwash/Gargle (Magic Mouthwash With Lidocaine) 5 ml PO Q6H PRN PRN Reason: Mouth Sore Pain Stop: 04/15/25 20:13 Last Admin: 04/15/24 22:28 Dose: 5 ml Naloxone HCl (Naloxone Hcl 2 Mg/2 Ml Syringe) 2 mg INHALATION Q2M PRN PRN Reason: opioid overdose Stop: 04/10/25 23:14 Oxycodone HCl (Oxycodone Ir 5 Mg Tablet) 10 mg PO Q6HR PRN PRN Reason: Pain Stop: 04/10/25 23:14 Last Admin: 04/18/24 05:00 Dose: 10 mg Pantoprazole Sodium (Pantoprazole 40 Mg Tablet.Dr) 40 mg PO BID [facility] Stop: 04/11/25 08:59 Last Admin: 04/18/24 08:16 Dose: 40 mg Potassium Chloride (Potassium Chloride Er 10 Meq Capsule.Er) 10 meq PO DAILY [facility] Stop: 04/11/25 08:59 Last Admin: 04/18/24 08:16 Dose: 10 meq Prochlorperazine Edisylate (Prochlorperazine Edisylate 10 Mg/2 Ml Vial) 5 mg IV- PUSH Q4H PRN PRN Reason: Nausea And Vomiting Stop: 04/11/25 14:30 Last Admin: 04/18/24 08:00 Dose: 5 mg Sodium Chloride (Sodium Chloride 0.9 % 10 Ml Syringe) 0 ml IV-PUSH PRN PRN PRN Reason: Flush Stop: 04/10/25 17:05 Last Admin: 04/18/24 08:00 Dose: 5 ml Spironolactone (Spironolactone 50 Mg Tablet) 50 mg PO DAILY [facility] Stop: 04/17/25 08:59 Last Admin: 04/18/24 08:16 Dose: 50 mg A&P - Infectious Disease Assessment/Plan (1) Acute alteration in mental status: (2) Bacteremia: (3) Spontaneous bacterial peritonitis: Plan Patient continues on cefepime 2 g Q8. Ending a 2-week treatment course. Patient has a chest wall port that we are using this at this time and we will plan to use this even upon discharge. Patient tells me she plans on going home. She is on a every 8 hour drug at this time which may make frequency of this antibiotic and home use more difficult. Other option that we have is to transition to ertapenem which would just be therefore once daily. In the meantime while she remains here in the hospital as I am not sure when her discharge date is will continue cefepime tentative stop date of antibiotictreatment will be 624. Patient also therefore may need secondary prophylaxis for peritonitis given this episode. Documented By: Lakeisha Miller MD 04/18/2449 Signed By: <Electronically signed by MD Lakeisha Miller> 04/18/2453 [facility] Work Phone: [phone]) 651-105306-17-2024 Progress note Author Hortensia Clinton [facility] April 18, 2024 9:10amNote Date/TimeJune 2023 9[place] [address] Hospitalist Progress Note Signed Patient: Mojgan Pérez MR#: [id number] : 1955 Acct:[id number] Age/Sex: 68 / F Adm Date: 4 Loc: Room: [address] [place] [address] Type: ADM IN Attending Dr: Hortensia Clinton MD Copies to: ~ Date of Service: 04/18/2024 Subjective Subjective Narrative: Patient was seen and evaluated at bedside. Remained afebrile here, no further episodes of A-fib with RVR, remained in sinus with controlled rate, she is out of bed to chair. Overall still not feelingwell, BP slightly elevated today, H/Hstable, WBC stable, PLT stable and improving. Still has cough due to her viral illness. She still has leg swelling today. Given IV Lasix yesterday. Will giveanother IV Lasix [address] her on Lasix and spironolactone given herliver cirrhosis with decompensation since now she is having ascites and evidenceof fluid overload. Titrate to optimize volumestatus. Having regular bowel movements, no diarrhea. remained on IV cefepime, arrangement has been made for outpatient IV infusion via her port to complete course of treatment. 04/18: Following up on the patient. Patient is feeling well. No chest pain or palpitation. No abdominal pain, nausea or vomiting. Exam Physical Exam Vital Signs: Temp Pulse Resp BP Pulse Ox O2 Del Method O2 Flow Rate 97.8 F 83 20 125/71 96 Room Air 2 04/18/24 04:00 04/18/24 08:03 04/18/24 08:03 04/18/24 08:03 04/18/24 08:03 04/18/24 08:03 04/18/24 04:00 Narrative: [pt is awake and alert. oriented to place, time and person HEENT: Pale conjunctiva and NL buccal mucosa Neck: Supple, no tenderness Endocrine: No Thyromegaly. Vascular: No JVD or carotid bruit. Lymphatic: No cervical lymphadenopathy. Chest: CTA no DTP. Heart RRR, no extra sound or murmur. Abd: Soft, diffuse mild tenderness. No guarding, no rebound LE: No cyanosis or clubbing, no varices. +1 pitting edema with calf tenderness Neuro: A A O. Nl speech, comprehension and attention. Nl and symetrical motor and tone examination through out. []] Objective Lab Results 04/17/24 08:38 04/18/24 06:30 Meds Allergies and Active Meds Allergies diclofenac [From Voltaren] Allergy (Unknown, Verified 04/10/24 17:08) Hives doxycycline [From Vibramycin] Allergy (Unknown, Verified 04/10/24 17:08) Hives moxifloxacin [From Avelox] Allergy (Unknown, Verified 04/10/24 17:08) Hives erythromycin base [From E-Mycin] Allergy (Verified 04/10/24 17:08) Hives latex Allergy (Verified 04/10/24 17:08) Unknown Reaction Quinolones Allergy (Verified 04/10/24 17:08) Unknown Reaction tetracycline Allergy (Verified 04/10/24 17:08) Unknown Reaction Active Meds: Active Medications Generic Name Dose Route Start Last Admin Trade Name Freq PRN Reason Stop Dose Admin Acyclovir 400 mg 04/11/24 09:00 04/18/24 08:16 Acyclovir 400 Mg Tablet PO 400 mg BID [facility] Administration Albuterol 2 puff 04/10/24 23:15 Albuterol Hfa 60 Puff/8 Gram Inhaler INHALATION 04/10/25 23:14 Q4H PRN Shortness Of Breath Albuterol 2.5 mg 04/11/24 00:00 04/18/24 05:50 Albuterol Neb 2.5 Mg/3 Ml Vial.Neb INHALATION 04/11/25 00:00 2.5 mg Q6HR [facility] Administration Atorvastatin Calcium 80 mg 04/11/24 09:00 04/18/24 08:16 Atorvastatin 80 Mg Tablet PO 04/11/25 08:59 80 mg DAILY [facility] Administration Benzonatate 100 mg 04/13/24 17:25 04/18/24 08:16 Benzonatate 100 Mg Capsule PO 04/13/25 17:24 100 mg TID PRN Administration Cough Carvedilol 12.5 mg 04/11/24 08:00 04/18/24 08:16 Carvedilol 12.5 Mg Tablet PO 04/11/25 07:59 12.5 mg BID.WITH.MEALS [facility] Administration Cyanocobalamin 1,000 mcg 04/11/24 09:00 04/18/24 08:16 Cyanocobalamin 1,000 Mcg Tablet PO 04/11/25 08:59 1,000 mcg DAILY [facility] Administration Cyclobenzaprine HCl 5 mg 04/18/24 09:00 Cyclobenzaprine 5 Mg Tablet PO 04/12/25 13:36 Q8HR PRN Muscle Spasm Epinephrine HCl 0.3 mg 04/10/24 23:15 Epinephrine/Pf 1 Mg/Ml Ampul IM ONCE PRN anaphylaxis Fluticasone Propionate 1 spray 04/10/24 23:15 Fluticasone Propionate Park 120 Park/16 Gm Bottle INTRANASAL 04/10/25 23:14 DAILY PRN Allergy Symptoms Furosemide 20 mg 04/18/24 08:00 04/18/24 08:15 Furosemide 20 Mg Tablet PO 04/18/25 07:59 20 mg DAILY.8A [facility] Administration Gabapentin 400 mg 04/11/24 09:00 Gabapentin 400 Mg Capsule PO 04/11/25 08:59 TID [facility] Hydromorphone HCl 0.5 mg 04/11/24 03:54 04/17/24 12:40 Hydromorphone 0.5 Mg/0.5 Ml Syringe IV-PUSH 0.5 mg Q2H PRN Administration Pain Cefepime HCl 2 gm in 50 mls @ 12.5 mls/hr 04/14/24 10:00 04/18/24 02:45 Maxipime IV 12.5 mls/hr Q8H [facility] Administration Magnesium Sulfate 4 gm in 100 mls @ 25 mls/hr 04/18/24 08:55 Magnesium Sulf 4 Gm-*Swfi* IV 04/18/24 12:54 ONCE ONE Potassium Chloride 20 meq/ 260 mls @ 130 mls/hr 04/18/24 08:55 Sodium Chloride IV 04/18/24 10:54 ONCE ONE Albumin Human 25 gm in 100 mls @ 200 mls/hr 04/18/24 08:59 Albuminar-25 IV 04/18/24 09:28 ONCE ONE Ipratropium [place] 0.5 mg 04/14/24 14:34 Ipratropium [place] 0.5 Mg/2.5 Ml Vial.Neb INHALATION 04/14/25 14:33 Q4H PRN Shortness Of Breath Or Wheezing Lactulose 20 gm 04/14/24 14:00 04/18/24 08:15 Lactulose 20 Gm/30 Ml Udc PO 04/14/25 13:59 20 gm TID [facility] Administration Melatonin 3 mg 04/11/24 22:00 04/17/24 21:49 Melatonin 3 Mg Tablet PO 04/11/25 21:59 3 mg QHS [facility] Administration Multi-Ingredient Mouthwash/Gargle 5 ml 04/15/24 20:14 04/15/24 22:28 Magic Mouthwash With Lidocaine PO 04/15/25 20:13 5 ml Q6H PRN Administration Mouth Sore Pain Naloxone HCl 2 mg 04/10/24 23:15 Naloxone Hcl 2 Mg/2 Ml Syringe INHALATION 04/10/25 23:14 Q2M PRN opioid overdose Oxycodone HCl 10 mg 04/10/24 23:15 04/18/24 05:00 Oxycodone Ir 5 Mg Tablet PO 04/10/25 23:14 10 mg Q6HR PRN Administration Pain Pantoprazole Sodium 40 mg 04/11/24 09:00 04/18/24 08:16 Pantoprazole 40 Mg Tablet.Dr PO 04/11/25 08:59 40 mg BID [facility] Administration Potassium Chloride 10 meq 04/11/24 09:00 04/18/24 08:16 Potassium Chloride Er 10 Meq Capsule.Er PO 04/11/25 08:59 10 meq DAILY [facility] Administration Potassium Chloride 40 meq 04/18/24 08:55 Potassium Chloride Er 20 Meq Tab.Er.Prt PO 04/18/24 08:56 ONCE ONE Prochlorperazine Edisylate 5 mg 04/11/24 14:31 04/18/24 08:00 Prochlorperazine Edisylate 10 Mg/2 Ml Vial IV-PUSH 04/11/25 14:30 5 mg Q4H PRN Administration Nausea And Vomiting Sodium Chloride 0 ml 04/10/24 17:06 04/18/24 08:00 Sodium Chloride 0.9 % 10 Ml Syringe IV-PUSH 04/10/25 17:05 5 ml PRN PRN Administration Flush Spironolactone 50 mg 04/17/24 09:00 04/18/24 08:16 Spironolactone 50 Mg Tablet PO 04/17/25 08:59 50 mg DAILY [facility] Administration A&P - Hospitalist Assessment/Plan (1) Acute metabolic encephalopathy: (2) Septic shock: (3) Spontaneous bacterial peritonitis: (4) Bacteremia: (5) Acute alteration in mental status: (6) DM2 (diabetes mellitus, type 2): (7) COPD (chronic obstructive pulmonary disease): (8) 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 -Continue AB to IV Cefepime dosing per pharmacy -ID consulted. Input appreciated. Repeat blood cultures negative to date. Likelybacteremia due to SBP -Pulmonary consulted for CC management. Input appreciated. -GI consulted. Input appreciated. -Continue supportive care -Required ICU stay, now on medical floor stable so far. Chemo related Pancytopenia 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- with moderate ascites Decompensated liver cirrhosis, evidence of fluid overload Anasarca Multiple myeloma -Pancytopenia still there, stable -Start IV Lasix 40 mg IV x 2 doses today, start Lasix 20 mg daily and Spironolactone 50 mg daily, titrate as tolerate to optimize volume status. -Continue to monitor. Acute kidney injury in the setting of sepsis and volume depletion - resolved -Cr improved back to normal -Will try to keep appropriate fluid balance with IV fluids and diuretics, treating underlying sepsis -Monitor kidney function New Afib with RVR- converted to NSR- rate controlled -Likely driven by sepsis and possibly volume depletion -Optimize electrolytes -Rate control as needed -Cardiac monitoring -Received amiodarone drip which has been discontinued. -Cardiology consulted. input appreciated. -Restarted her home Coreg, monitor for any Afib with RVR. Acute on chronic anemia Symptomatic anemia -Given 1 unit of blood while here with improvement in hemodynamics. Will transfuse as needed. -No signs of over GI bleed -Monitor H/H Constipation -resolved DVT ppx: SCDs, avoiding AP/AC due to thrombocytopenia and risk of bleed Diet: as directed Discussed with pt at bedside, all questions answered. In agreement with above plan. PT/OT following Added Lasix and spironolactone today to optimize volume status, IV diuresis today, might require more. Reassess in am. Will need to follow up with liver clinic as outpatient. 04/18: The aforementioned paragraph was documented by my colleague. Lower extremities edema. Calf tenderness, ultrasound rule out DVT Continue diuresis. Added albumin infusion. Hypokalemia, hypomagnesemia. Potassium and magnesium supplementation. Check phosphorus level. Enterobacter bacteremia and peritonitis. Continue cefepime. Duration of antibiotic is to be addressed by ID team 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. Check viral hepatitis panel. Multiple myeloma. Patient is to follow-up with her oncology team in [place]. Multiple other medical issues not listed above. Documented By: Hortensia Clinton MD 04/18/24906 Signed By: <Electronically signed by Hortensia Clinton MD> 04/18/24 0910 [facility] Work Phone: 1(299) 958-177006-16-2024 Progress note Author Modesto Aquino [facility] April 17, 2024 9:53amNote Date/TimeJune 2023 9:[address] [address] Hospitalist Progress Note Signed Patient: Mojgan Pérez MR#: [id number] : 1955 Acct:[id number] Age/Sex: 68 / F Adm Date: 4 Loc: Room: [address] [place] [address] Type: ADM IN Attending Dr: Modesto Aquino MD Copies to: ~ Date of Service: 04/17/2024 Subjective Subjective Narrative: Patient was seen and evaluated at bedside. Remained afebrile here, no further episodes of A-fib with RVR, remained in sinus with controlled rate, she is out of bed to chair. Overall still not feelingwell, BP slightly elevated today, H/Hstable, WBC stable, PLT stable and improving. Still has cough due to her viral illness. She still has leg swelling today. Given IV Lasix yesterday. Will giveanother IV Lasix [address] her on Lasix and spironolactone given herliver cirrhosis with decompensation since now she is having ascites and evidenceof fluid overload. Titrate to optimize volumestatus. Having regular bowel movements, no diarrhea. remained on IV cefepime, arrangement has been made for outpatient IV infusion via her port to complete course of treatment. Exam Physical Exam Vital Signs: Temp Pulse Resp BP Pulse Ox O2 Del Method O2 Flow Rate 97.7 F 88 20 163/80 H 98 Room Air 2 04/17/24 08:14 04/17/24 08:14 04/17/24 08:14 04/17/24 08:14 04/17/24 08:14 04/17/24 08:14 04/17/24 00:00 Narrative: Const General: comfortable HEENT Normal oropharyngeal mucosa without any ulcers or exudates Eyes: Conjunctiva normal Pulmonary Auscultation: diminished breath sounds on lung bases , mild crackles on lung bases, no wheezes R chest port Cardiovascular Rate: normal Rhythm: regular rhythm Heart Sounds: S1 normal, S2 normal and no murmurs GI Inspection: non-distended Palpation: soft, nontender. No rigidity or rebound. Deferred Neuro General: alert, awake and oriented x3. No obvious new focal deficit Musculoskeletal: normal range of motion Extrem General: no cyanosis, + pedal edema Psych Appearance: calm Objective Lab Results 04/17/24 08:38 04/17/24 08:38 Microbiology Results Microbiology 04/11/24 11:45 Blood - Port Blood Culture - Final NO GROWTH 5 DAYS 04/11/24 10:33 Blood - Right Antecubital Blood Culture - Final NO GROWTH 5 DAYS Meds Allergies and Active Meds Allergies diclofenac [From Voltaren] Allergy (Unknown, Verified 04/10/24 17:08) Hives doxycycline [From Vibramycin] Allergy (Unknown, Verified 04/10/24 17:08) Hives moxifloxacin [From Avelox] Allergy (Unknown, Verified 04/10/24 17:08) Hives erythromycin base [From E-Mycin] Allergy (Verified 04/10/24 17:08) Hives latex Allergy (Verified 04/10/24 17:08) Unknown Reaction Quinolones Allergy (Verified 04/10/24 17:08) Unknown Reaction tetracycline Allergy (Verified 04/10/24 17:08) Unknown Reaction Active Meds: Active Medications Generic Name Dose Route Start Last Admin Trade Name Freq PRN Reason Stop Dose Admin Acyclovir 400 mg 04/11/24 09:00 04/17/24 08:20 Acyclovir 400 Mg Tablet PO 400 mg BID WALLACE Administration Albuterol 2 puff 04/10/24 23:15 Albuterol Hfa 60 Puff/8 Gram Inhaler INHALATION 04/10/25 23:14 Q4H PRN Shortness Of Breath Albuterol 2.5 mg 04/11/24 00:00 04/17/24 06:01 Albuterol Neb 2.5 Mg/3 Ml Vial.Neb INHALATION 04/11/25 00:00 2.5 mg Q6HR WALLACE Administration Atorvastatin Calcium 80 mg 04/11/24 09:00 04/17/24 08:20 Atorvastatin 80 Mg Tablet PO 04/11/25 08:59 80 mg DAILY WALLACE Administration Benzonatate 100 mg 04/13/24 17:25 04/16/24 15:21 Benzonatate 100 Mg Capsule PO 04/13/25 17:24 100 mg TID PRN Administration Cough Carvedilol 12.5 mg 04/11/24 08:00 04/17/24 08:20 Carvedilol 12.5 Mg Tablet PO 04/11/25 07:59 12.5 mg BID.WITH.MEALS WALLACE Administration Cyanocobalamin 1,000 mcg 04/11/24 09:00 04/17/24 08:20 Cyanocobalamin 1,000 Mcg Tablet PO 04/11/25 08:59 1,000 mcg DAILY WALLACE Administration Cyclobenzaprine HCl 10 mg 04/12/24 13:37 04/16/24 21:25 Cyclobenzaprine 10 Mg Tablet PO 04/12/25 13:36 10 mg Q8HR PRN Administration Muscle Spasm Epinephrine HCl 0.3 mg 04/10/24 23:15 Epinephrine/Pf 1 Mg/Ml Ampul IM ONCE PRN anaphylaxis Fluticasone Propionate 1 spray 04/10/24 23:15 Fluticasone Propionate Park 120 Park/16 Gm Bottle INTRANASAL 04/10/25 23:14 DAILY PRN Allergy Symptoms Furosemide 20 mg 04/18/24 08:00 Furosemide 20 Mg Tablet PO 04/18/25 07:59 DAILY.8A WALLACE Gabapentin 400 mg 04/11/24 09:00 Gabapentin 400 Mg Capsule PO 04/11/25 08:59 TID WALLACE Hydromorphone HCl 0.5 mg 04/11/24 03:54 04/13/24 00:13 Hydromorphone 0.5 Mg/0.5 Ml Syringe IV-PUSH 0.5 mg Q2H PRN Administration Pain Cefepime HCl 2 gm in 50 mls @ 12.5 mls/hr 04/14/24 10:00 04/17/24 01:44 Maxipime IV 12.5 mls/hr Q8H WALLACE Administration Sodium Chloride 1,000 mls @ 20 mls/hr 04/16/24 03:45 04/17/24 08:18 0.9% Sodium Chloride 1,000 Ml IV 04/16/25 03:44 Not Given .Q24H WALLACE Ipratropium [place] 0.5 mg 04/14/24 14:34 Ipratropium [place] 0.5 Mg/2.5 Ml Vial.Neb INHALATION 04/14/25 14:33 Q4H PRN Shortness Of Breath Or Wheezing Lactulose 20 gm 04/14/24 14:00 04/17/24 08:20 Lactulose 20 Gm/30 Ml Udc PO 04/14/25 13:59 Not Given TID WALLACE Melatonin 3 mg 04/11/24 22:00 04/16/24 21:25 Melatonin 3 Mg Tablet PO 04/11/25 21:59 3 mg QHS WALLACE Administration Multi-Ingredient Mouthwash/Gargle 5 ml 04/15/24 20:14 04/15/24 22:28 Magic Mouthwash With Lidocaine PO 04/15/25 20:13 5 ml Q6H PRN Administration Mouth Sore Pain Naloxone HCl 2 mg 04/10/24 23:15 Naloxone Hcl 2 Mg/2 Ml Syringe INHALATION 04/10/25 23:14 Q2M PRN opioid overdose Oxycodone HCl 10 mg 04/10/24 23:15 04/17/24 06:42 Oxycodone Ir 5 Mg Tablet PO 04/10/25 23:14 10 mg Q6HR PRN Administration Pain Pantoprazole Sodium 40 mg 04/11/24 09:00 04/17/24 08:20 Pantoprazole 40 Mg Tablet. PO 04/11/25 08:59 40 mg BID WALLACE Administration Potassium Chloride 10 meq 04/11/24 09:00 04/17/24 08:20 Potassium Chloride Er 10 Meq Capsule.Er PO 04/11/25 08:59 10 meq DAILY WALLACE Administration Prochlorperazine Edisylate 5 mg 04/11/24 14:31 04/17/24 06:21 Prochlorperazine Edisylate 10 Mg/2 Ml Vial IV-PUSH 04/11/25 14:30 5 mg Q4H PRN Administration Nausea And Vomiting Sodium Chloride 0 ml 04/10/24 17:06 04/16/24 02:21 Sodium Chloride 0.9 % 10 Ml Syringe IV-PUSH 04/10/25 17:05 10 ml PRN PRN Administration Flush Spironolactone 50 mg 04/17/24 09:00 04/17/24 08:34 Spironolactone 50 Mg Tablet PO 04/17/25 08:59 50 mg DAILY WALLACE Administration A&P - Hospitalist Assessment/Plan (1) Acute metabolic encephalopathy: (2) Septic shock: (3) Spontaneous bacterial peritonitis: (4) Bacteremia: (5) Acute alteration in mental status: (6) DM2 (diabetes mellitus, type 2): (7) COPD (chronic obstructive pulmonary disease): (8) 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 -Continue AB to IV Cefepime dosing per pharmacy -ID consulted. Input appreciated. Repeat blood cultures negative to date. Likelybacteremia due to SBP -Pulmonary consulted for CC management. Input appreciated. -GI consulted. Input appreciated. -Continue supportive care -Required ICU stay, now on medical floor stable so far. Chemo related Pancytopenia 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- with moderate ascites Decompensated liver cirrhosis, evidence of fluid overload Anasarca Multiple myeloma -Pancytopenia still there, stable -Start IV Lasix 40 mg IV x 2 doses today, start Lasix 20 mg daily and Spironolactone 50 mg daily, titrate as tolerate to optimize volume status. -Continue to monitor. Acute kidney injury in the setting of sepsis and volume depletion - resolved -Cr improved back to normal -Will try to keep appropriate fluid balance with IV fluids and diuretics, treating underlying sepsis -Monitor kidney function New Afib with RVR- converted to NSR- rate controlled -Likely driven by sepsis and possibly volume depletion -Optimize electrolytes -Rate control as needed -Cardiac monitoring -Received amiodarone drip which has been discontinued. -Cardiology consulted. input appreciated. -Restarted her home Coreg, monitor for any Afib with RVR. Acute on chronic anemia Symptomatic anemia -Given 1 unit of blood while here with improvement in hemodynamics. Will transfuse as needed. -No signs of over GI bleed -Monitor H/H Constipation -resolved DVT ppx: SCDs, avoiding AP/AC due to thrombocytopenia and risk of bleed Diet: as directed Discussed with pt at bedside, all questions answered. In agreement with above plan. PT/OT following Added Lasix and spironolactone today to optimize volume status, IV diuresis today, might require more. Reassess in am. Will need to follow up with liver clinic as outpatient. Documented By: Modesto Aquino MD 04/17/24 09 41 Signed By: <Electronically signed by Modesto Aquino MD> 04/17/24 0953 [facility] Work Phone: [phone]) 189-245706-15-2024 Progress note Author Modesto Aquino [facility] April 16, 2024 11:15amNote Date/TimeJune 2023 10:58[place] [address] Hospitalist Progress Note Signed Patient: Mojgan Pérez MR#: [id number] : 1955 Acct:[id number] Age/Sex: 68 / F Adm Date: 4 Loc: Room: [address] [place] [address] Type: ADM IN Attending Dr: Modesto Aquino MD Copies to: ~ Date of Service: 04/16/2024 Subjective Subjective Narrative: Patient was seen and evaluated at bedside. Remained afebrile overnight. WBC up to 2.6. HB around 8.7 . Pt seems hemodynamically stable. Denies nausea, vomiting. She did have BMs with lactulose. Appears overall stable and improving.She has occasional cough due to her viral pneumonia being treated with supportive care. Overnight had brief episode of Afib with RVR which quickly converted to NSR witha dose of Cardizem. Restarted her Coreg this am since BP has improved. Exam Physical Exam Vital Signs: Temp Pulse Resp BP Pulse Ox O2 Del Method O2 Flow Rate 98.2 F 84 18 160/90 H 94 L Room Air 2 04/16/24 00:42 04/16/24 06:22 04/16/24 06:22 04/16/24 03:20 04/16/24 03:20 04/16/24 03:20 04/14/24 23:40 Narrative: Const General: more comfortable HEENT Normal oropharyngeal mucosa without any ulcers or exudates Eyes: Conjunctiva normal Pulmonary Auscultation: diminished breath sounds on lung bases , no crackles, no wheezes R chest port Cardiovascular Rate: normal Rhythm: regular rhythm Heart Sounds: S1 normal, S2 normal and no murmurs GI Inspection: non-distended Palpation: soft, nontender. No rigidity or rebound. Deferred Neuro General: alert, awake and oriented x3. No obvious new focal deficit Musculoskeletal: normal range of motion Extrem General: no cyanosis, trace pedal edema Psych Appearance: calm Objective Lab Results 04/16/24 05:00 04/16/24 05:00 Microbiology Results Microbiology 04/11/24 10:33 Blood - Right Antecubital Blood Culture - Final NO GROWTH 5 DAYS 04/11/24 11:45 Blood - Port Blood Culture - Preliminary No Growth 4 Days Meds Allergies and Active Meds Allergies diclofenac [From Voltaren] Allergy (Unknown, Verified 04/10/24 17:08) Hives doxycycline [From Vibramycin] Allergy (Unknown, Verified 04/10/24 17:08) Hives moxifloxacin [From Avelox] Allergy (Unknown, Verified 04/10/24 17:08) Hives erythromycin base [From E-Mycin] Allergy (Verified 04/10/24 17:08) Hives latex Allergy (Verified 04/10/24 17:08) Unknown Reaction Quinolones Allergy (Verified 04/10/24 17:08) Unknown Reaction tetracycline Allergy (Verified 04/10/24 17:08) Unknown Reaction Active Meds: Active Medications Generic Name Dose Route Start Last Admin Trade Name Freq PRN Reason Stop Dose Admin Acyclovir 400 mg 04/11/24 09:00 04/16/24 08:13 Acyclovir 400 Mg Tablet PO 400 mg BID WALLACE Administration Albuterol 2 puff 04/10/24 23:15 Albuterol Hfa 60 Puff/8 Gram Inhaler INHALATION 04/10/25 23:14 Q4H PRN Shortness Of Breath Albuterol 2.5 mg 04/11/24 00:00 04/16/24 06:14 Albuterol Neb 2.5 Mg/3 Ml Vial.Neb INHALATION 04/11/25 00:00 2.5 mg Q6HR WALLACE Administration Atorvastatin Calcium 80 mg 04/11/24 09:00 04/16/24 08:13 Atorvastatin 80 Mg Tablet PO 04/11/25 08:59 80 mg DAILY WALLACE Administration Benzonatate 100 mg 04/13/24 17:25 04/15/24 21:02 Benzonatate 100 Mg Capsule PO 04/13/25 17:24 100 mg TID PRN Administration Cough Carvedilol 12.5 mg 04/11/24 08:00 04/16/24 08:13 Carvedilol 12.5 Mg Tablet PO 04/11/25 07:59 12.5 mg BID.WITH.MEALS WALLACE Administration Cyanocobalamin 1,000 mcg 04/11/24 09:00 04/16/24 08:13 Cyanocobalamin 1,000 Mcg Tablet PO 04/11/25 08:59 1,000 mcg DAILY WALLACE Administration Cyclobenzaprine HCl 10 mg 04/12/24 13:37 04/14/24 20:39 Cyclobenzaprine 10 Mg Tablet PO 04/12/25 13:36 10 mg Q8HR PRN Administration Muscle Spasm Epinephrine HCl 0.3 mg 04/10/24 23:15 Epinephrine/Pf 1 Mg/Ml Ampul IM ONCE PRN anaphylaxis Fluticasone Propionate 1 spray 04/10/24 23:15 Fluticasone Propionate Park 120 Park/16 Gm Bottle INTRANASAL 04/10/25 23:14 DAILY PRN Allergy Symptoms Gabapentin 400 mg 04/11/24 09:00 Gabapentin 400 Mg Capsule PO 04/11/25 08:59 TID WALLACE Hydromorphone HCl 0.5 mg 04/11/24 03:54 04/13/24 00:13 Hydromorphone 0.5 Mg/0.5 Ml Syringe IV-PUSH 0.5 mg Q2H PRN Administration Pain Cefepime HCl 2 gm in 50 mls @ 12.5 mls/hr 04/14/24 10:00 04/16/24 10:32 Maxipime IV 12.5 mls/hr Q8H WALLACE Administration Diltiazem HCl 100 mg in 100 mls @ 10 mls/hr 04/16/24 03:45 04/16/24 10:31 Cardizem IV 04/16/25 03:44 Not Given .Q10H WALLACE Protocol 10 MG/HR Sodium Chloride 1,000 mls @ 20 mls/hr 04/16/24 03:45 04/16/24 10:30 0.9% Sodium Chloride 1,000 Ml IV 04/16/25 03:44 Not Given .Q24H WALLACE Ipratropium [place] 0.5 mg 04/14/24 14:34 Ipratropium [place] 0.5 Mg/2.5 Ml Vial.Neb INHALATION 04/14/25 14:33 Q4H PRN Shortness Of Breath Or Wheezing Lactulose 20 gm 04/14/24 14:00 04/16/24 08:13 Lactulose 20 Gm/30 Ml Udc PO 04/14/25 13:59 20 gm TID WALLACE Administration Melatonin 3 mg 04/11/24 22:00 04/15/24 21:02 Melatonin 3 Mg Tablet PO 04/11/25 21:59 3 mg QHS WALLACE Administration Multi-Ingredient Mouthwash/Gargle 5 ml 04/15/24 20:14 04/15/24 22:28 Magic Mouthwash With Lidocaine PO 04/15/25 20:13 5 ml Q6H PRN Administration Mouth Sore Pain Naloxone HCl 2 mg 04/10/24 23:15 Naloxone Hcl 2 Mg/2 Ml Syringe INHALATION 04/10/25 23:14 Q2M PRN opioid overdose Oxycodone HCl 10 mg 04/10/24 23:15 04/15/24 23:59 Oxycodone Ir 5 Mg Tablet PO 04/10/25 23:14 10 mg Q6HR PRN Administration Pain Pantoprazole Sodium 40 mg 04/11/24 09:00 04/16/24 08:13 Pantoprazole 40 Mg Tablet. PO 04/11/25 08:59 40 mg BID WALLACE Administration Potassium Chloride 10 meq 04/11/24 09:00 04/16/24 08:13 Potassium Chloride Er 10 Meq Capsule.Er PO 04/11/25 08:59 10 meq DAILY WALLACE Administration Prochlorperazine Edisylate 5 mg 04/11/24 14:31 04/15/24 16:36 Prochlorperazine Edisylate 10 Mg/2 Ml Vial IV-PUSH 04/11/25 14:30 5 mg Q4H PRN Administration Nausea And Vomiting Sodium Chloride 0 ml 04/10/24 17:06 04/16/24 02:21 Sodium Chloride 0.9 % 10 Ml Syringe IV-PUSH 04/10/25 17:05 10 ml PRN PRN Administration Flush A&P - Hospitalist Assessment/Plan (1) Acute metabolic encephalopathy: (2) Septic shock: (3) Spontaneous bacterial peritonitis: (4) Bacteremia: (5) Acute alteration in mental status: (6) DM2 (diabetes mellitus, type 2): (7) COPD (chronic obstructive pulmonary disease): (8) 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 -Continue AB to IV Cefepime dosing per pharmacy -ID consulted. Input appreciated. Repeat blood cultures negative to date. Likelybacteremia due to SBP -Pulmonary consulted for CC management. Input appreciated. -GI consulted. Input appreciated. -Continue supportive care Chemo related Pancytopenia 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- with moderate ascites Anasarca Multiple myeloma -Pancytopenia more evidence today due to her underlying liver cirrhosis however hemodynamics stable. -Continue to monitor. Acute kidney injury in the setting of sepsis and volume depletion - resolved -Cr improved back to normal -Will try to keep appropriate fluid balance with IV fluids and diuretics, treating underlying sepsis -Monitor kidney function New Afib with RVR- converted to NSR- rate controlled -Likely driven by sepsis and possibly volume depletion -Optimize electrolytes -Rate control as needed -Cardiac monitoring -Received amiodarone drip which has been discontinued. -Cardiology consulted. input appreciated. -Restarted her home Coreg, monitor for any Afib with RVR. Acute on chronic anemia Symptomatic anemia -Given 1 unit of blood while here with improvement in hemodynamics. Will transfuse as needed. -No signs of over GI bleed -Monitor H/H Constipation -resolved DVT ppx: SCDs, avoiding AP/AC due to thrombocytopenia and risk of bleed Diet: as directed Discussed with pt at bedside, all questions answered. PT/OT following If remains stable, discharge planning tomorrow Documented By: Modesto Aquino MD 04/16/24 10 56 Signed By: <Electronically signed by Modesto Aquino MD> 04/16/24 1115 [facility] Work Phone: [phone]) 246-502306-14-2024 Progress note Author Modesto Aquino [facility] April 15, 2024 4:37pmNote Date/TimeJune 2023 4:37[place] [address] Hospitalist Progress Note Signed Patient: Mojgan Pérez MR#: [id number] : 1955 Acct:[id number] Age/Sex: 68 / F Adm Date: 4 Loc: Room: [address] [place] [address] Type: ADM IN Attending Dr: Modesto Aquino MD Copies to: ~ Date of Service: 04/15/2024 Subjective Subjective Narrative: Patient was seen and evaluated at bedside. Remained afebrile overnight. WBC downtrended to 1.0. HB around 7.7 but seems hemodynamically stable. Denies nausea, vomiting. She did have BMs with our bowel regimen yesterday. Appears overall stable and improving. She has occasional cough due to her viralpneumonia being treated with supportive care. Exam Physical Exam Vital Signs: Temp Pulse Resp BP Pulse Ox O2 Del Method O2 Flow Rate 97.6 F 75 18 133/72 96 Room Air 2 04/15/24 12:00 04/15/24 16:03 04/15/24 16:03 04/15/24 12:00 04/15/24 16:03 04/15/24 16:03 04/14/24 23:40 Narrative: Const General: more comfortable HEENT Normal oropharyngeal mucosa without any ulcers or exudates Eyes: Conjunctiva normal Pulmonary Auscultation: diminished breath sounds on lung bases , no crackles, no wheezes R chest port Cardiovascular Rate: normal Rhythm: regular rhythm Heart Sounds: S1 normal, S2 normal and no murmurs GI Inspection: non-distended Palpation: soft, nontender. No rigidity or rebound. Deferred Neuro General: alert, awake and oriented x3. No obvious new focal deficit Musculoskeletal: normal range of motion Extrem General: no cyanosis, trace pedal edema Psych Appearance: calm Objective Lab Results 04/15/24 05:43 04/15/24 05:43 Microbiology Results Microbiology 04/11/24 11:45 Blood - Port Blood Culture - Preliminary No Growth 4 Days 04/11/24 10:33 Blood - Right Antecubital Blood Culture - Preliminary No Growth 4 Days Meds Allergies and Active Meds Allergies diclofenac [From Voltaren] Allergy (Unknown, Verified 04/10/24 17:08) Hives doxycycline [From Vibramycin] Allergy (Unknown, Verified 04/10/24 17:08) Hives moxifloxacin [From Avelox] Allergy (Unknown, Verified 04/10/24 17:08) Hives erythromycin base [From E-Mycin] Allergy (Verified 04/10/24 17:08) Hives latex Allergy (Verified 04/10/24 17:08) Unknown Reaction Quinolones Allergy (Verified 04/10/24 17:08) Unknown Reaction tetracycline Allergy (Verified 04/10/24 17:08) Unknown Reaction Active Meds: Active Medications Generic Name Dose Route Start Last Admin Trade Name Freq PRN Reason Stop Dose Admin Acyclovir 400 mg 04/11/24 09:00 04/15/24 08:29 Acyclovir 400 Mg Tablet PO 400 mg BID WALLACE Administration Albuterol 2 puff 04/10/24 23:15 Albuterol Hfa 60 Puff/8 Gram Inhaler INHALATION 04/10/25 23:14 Q4H PRN Shortness Of Breath Albuterol 2.5 mg 04/11/24 00:00 04/15/24 16:03 Albuterol Neb 2.5 Mg/3 Ml Vial.Neb INHALATION 04/11/25 00:00 2.5 mg Q6HR WALLACE Administration Atorvastatin Calcium 80 mg 04/11/24 09:00 04/15/24 08:29 Atorvastatin 80 Mg Tablet PO 04/11/25 08:59 80 mg DAILY WALLACE Administration Benzonatate 100 mg 04/13/24 17:25 04/15/24 13:30 Benzonatate 100 Mg Capsule PO 04/13/25 17:24 100 mg TID PRN Administration Cough Carvedilol 12.5 mg 04/11/24 08:00 Carvedilol 12.5 Mg Tablet PO 04/11/25 07:59 BID.WITH.MEALS WALLACE Cyanocobalamin 1,000 mcg 04/11/24 09:00 04/15/24 08:29 Cyanocobalamin 1,000 Mcg Tablet PO 04/11/25 08:59 1,000 mcg DAILY WALLACE Administration Cyclobenzaprine HCl 10 mg 04/12/24 13:37 04/14/24 20:39 Cyclobenzaprine 10 Mg Tablet PO 04/12/25 13:36 10 mg Q8HR PRN Administration Muscle Spasm Epinephrine HCl 0.3 mg 04/10/24 23:15 Epinephrine/Pf 1 Mg/Ml Ampul IM ONCE PRN anaphylaxis Fluticasone Propionate 1 spray 04/10/24 23:15 Fluticasone Propionate Park 120 Park/16 Gm Bottle INTRANASAL 04/10/25 23:14 DAILY PRN Allergy Symptoms Gabapentin 400 mg 04/11/24 09:00 Gabapentin 400 Mg Capsule PO 04/11/25 08:59 TID WALLACE Hydromorphone HCl 0.5 mg 04/11/24 03:54 04/13/24 00:13 Hydromorphone 0.5 Mg/0.5 Ml Syringe IV-PUSH 0.5 mg Q2H PRN Administration Pain Cefepime HCl 2 gm in 50 mls @ 12.5 mls/hr 04/14/24 10:00 04/15/24 15:08 Maxipime IV Infused Q8H WALLACE Infusion Ipratropium [place] 0.5 mg 04/14/24 14:34 Ipratropium [place] 0.5 Mg/2.5 Ml Vial.Neb INHALATION 04/14/25 14:33 Q4H PRN Shortness Of Breath Or Wheezing Lactulose 20 gm 04/14/24 14:00 04/15/24 13:30 Lactulose 20 Gm/30 Ml Udc PO 04/14/25 13:59 20 gm TID WALLACE Administration Melatonin 3 mg 04/11/24 22:00 04/14/24 21:52 Melatonin 3 Mg Tablet PO 04/11/25 21:59 3 mg QHS WALLACE Administration Naloxone HCl 2 mg 04/10/24 23:15 Naloxone Hcl 2 Mg/2 Ml Syringe INHALATION 04/10/25 23:14 Q2M PRN opioid overdose Oxycodone HCl 10 mg 04/10/24 23:15 04/14/24 21:52 Oxycodone Ir 5 Mg Tablet PO 04/10/25 23:14 10 mg Q6HR PRN Administration Pain Pantoprazole Sodium 40 mg 04/11/24 09:00 04/15/24 08:29 Pantoprazole 40 Mg Tablet.Dr PO 04/11/25 08:59 40 mg BID WALLACE Administration Potassium Chloride 10 meq 04/11/24 09:00 04/15/24 08:29 Potassium Chloride Er 10 Meq Capsule.Er PO 04/11/25 08:59 10 meq DAILY WALLACE Administration Prochlorperazine Edisylate 5 mg 04/11/24 14:31 04/14/24 16:30 Prochlorperazine Edisylate 10 Mg/2 Ml Vial IV-PUSH 04/11/25 14:30 5 mg Q4H PRN Administration Nausea And Vomiting Sodium Chloride 0 ml 04/10/24 17:06 04/14/24 12:44 Sodium Chloride 0.9 % 10 Ml Syringe IV-PUSH 04/10/25 17:05 10 ml PRN PRN Administration Flush A&P - Hospitalist Assessment/Plan (1) Acute metabolic encephalopathy: (2) Septic shock: (3) Spontaneous bacterial peritonitis: (4) Bacteremia: (5) Acute alteration in mental status: (6) DM2 (diabetes mellitus, type 2): (7) COPD (chronic obstructive pulmonary disease): (8) 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 -Continue AB to IV Cefepime dosing per pharmacy -ID consulted. Input appreciated. Repeat blood cultures negative to date. Likelybacteremia due to SBP -Pulmonary consulted for CC management. Input appreciated. -GI consulted. Input appreciated. -Continue supportive care Chemo related Pancytopenia 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- with moderate ascites Anasarca Multiple myeloma -Pancytopenia more evidence today due to her underlying liver cirrhosis however hemodynamics stable. -Continue to monitor. Acute kidney injury in the setting of sepsis and volume depletion -Cr improved back to normal -Will try to keep appropriate fluid balance with IV fluids and diuretics, treating underlying sepsis -Hold ACEI -Monitor kidney function New Afib with RVR- converted to NSR- rate controlled -Likely driven by sepsis and possibly volume depletion -Optimize electrolytes -Rate control as needed -Cardiac monitoring -Received amiodarone drip which has been discontinued. -Cardiology consulted. input appreciated. Acute on chronic anemia Symptomatic anemia -Given 1 unit of blood while here with improvement in hemodynamics. Will transfuse as needed. -No signs of over GI bleed -Monitor H/H Constipation -resolved DVT ppx: SCDs, avoiding AP/AC due to thrombocytopenia and risk of bleed Diet: as directed Discussed with pt at bedside, all questions answered. Stable to be transferred out of ICU. Documented By: Modesto Aquino MD 04/15/24 16 32 Signed By: <Electronically signed by Modesto Aquino MD> 04/15/[address] [place] [address] Work Phone: 1(361) 295-214106-14-2024 Progress note Author Lakeisha Miller [facility] April 15, 2024 12:37pmNote Date/TimeJune 2023 10:45[place] [address] Infect. Disease Progress Note Signed Patient: Mojgan Pérez MR#: [id number] : 1955 Acct:[id number] Age/Sex: 68 / F Adm Date: 4 Loc: Room: [address] [place] [address] Type: ADM IN Attending Dr: Modesto Aquino MD Copies to: ~ Date of Service: 04/15/2024 Subjective Interval history: Ms. Pérez is a 68 year old female admitted for AMS and spontaneous bacterial peritonitis. Patient was seen and examined at bedside today. Patient reports improvement in the abdominal pain, but continues to have mild tenderness to touch. She states that she continues to have a productive cough. She reports having two bowel movements this morning. States that they were normal. Denies any dysuria, fever, chills, N/V, chest pain, dysuria, lightheadedness, or dizziness. Vitals stable at the time of exam. Afebrile. WBC at 1.9 today. Currently on cefepime 2gm Q8H. No growth on repeat blood cultures. Exam Physical Exam Vital Signs: Temp Pulse Resp BP Pulse Ox O2 Del Method O2 Flow Rate 98.1 F 77 20 135/71 94 L Room Air 2 04/15/24 02:00 04/15/24 02:00 04/15/24 02:00 04/15/24 02:00 04/15/24 02:00 04/15/24 08:00 04/14/24 23:40 Narrative: General: Alert, awake, oriented X3. Slow speech noted. Skin: No rash or lesions noted. HEENT: head atraumatic, face symmetrical. No lymphadenopathy. Pulm: Clear to auscultation bilaterally. Normal respiratory effort. No wheezing, rhonchi, or crackles noted on exam. Cardio: Regular rate and rhythm Abdomen: Normal visual inspection. Soft. Bowel sounds normal. Mild tenderness to light touch diffusely across the abdomen. Musculoskeletal: Moves all extremities, normal strength all extremities. Neuro: Pt alert, oriented x3. CN's II-XII intact bilaterally. normal sensation. Objective Labs CBC/BMP: CBC, BMP 04/15/24 05:43 Corrected WBC 1.9 L Uncorrected WBC Count 1.9 L RBC 3.01 L Hgb 7.7 L Hct 23.9 L Plt Count 23 L* Sodium 142 Potassium 3.1 L Chloride 113 H Carbon Dioxide 23.2 Anion Gap 8.9 BUN 17 Creatinine 0.69 Calcium 8.5 L Labs: 04/15/24 05:43 BUN 17 Creatinine 0.69 Microbiology Microbiology: Microbiology - Results from entire visit 04/11/24 11:45 Blood - Port Blood Culture - Preliminary No Growth 3 Days 04/11/24 10:33 Blood - Right Antecubital Blood Culture - Preliminary No Growth 3 Days 04/11/24 03:30 Ascites Fluid Aerobic Culture - Final Enterobacter cloacae complex 04/11/24 03:30 Ascites Fluid Anaerobic Culture - Final No Anaerobes Isolated 3 Days 04/11/24 03:30 Ascites Fluid Gram Stain - Final 04/10/24 17:20 Blood - Other Blood Culture - Final Enterobacter cloacae complex 04/10/24 17:20 Blood - Other Bacterial ID (NA Multiplex Assay) - Final 04/11/24 03:36 Sputum - Expectorated Aerobic Culture - Final Moderate Normal Respiratory Alysha 2 Days 04/11/24 03:36 Sputum - Expectorated Gram Stain - Final 04/11/24 03:55 Nasopharyngeal Respiratory Panel (PCR) - Final Allergies and Medications Allergies and Active Meds Allergies diclofenac [From Voltaren] Allergy (Unknown, Verified 04/10/24 17:08) Hives doxycycline [From Vibramycin] Allergy (Unknown, Verified 04/10/24 17:08) Hives moxifloxacin [From Avelox] Allergy (Unknown, Verified 04/10/24 17:08) Hives erythromycin base [From E-Mycin] Allergy (Verified 04/10/24 17:08) Hives latex Allergy (Verified 04/10/24 17:08) Unknown Reaction Quinolones Allergy (Verified 04/10/24 17:08) Unknown Reaction tetracycline Allergy (Verified 04/10/24 17:08) Unknown Reaction Active Medications Acyclovir (Acyclovir 400 Mg Tablet) 400 mg PO BID [facility] Last Admin: 04/15/24 08:29 Dose: 400 mg Albuterol (Albuterol Hfa 60 Puff/8 Gram Inhaler) 2 puff INHALATION Q4H PRN PRN Reason: Shortness Of Breath Stop: 04/10/25 23:14 Albuterol (Albuterol Neb 2.5 Mg/3 Ml Vial.Neb) 2.5 mg INHALATION Q6HR [facility] Stop: 04/11/25 00:00 Last Admin: 04/15/24 04:53 Dose: Not Given Atorvastatin Calcium (Atorvastatin 80 Mg Tablet) 80 mg PO DAILY [facility] Stop: 04/11/25 08:59 Last Admin: 04/15/24 08:29 Dose: 80 mg Benzonatate (Benzonatate 100 Mg Capsule) 100 mg PO TID PRN PRN Reason: Cough Stop: 04/13/25 17:24 Last Admin: 04/14/24 20:39 Dose: 100 mg Carvedilol (Carvedilol 12.5 Mg Tablet) 12.5 mg PO BID.WITH.MEALS [facility] Stop: 04/11/25 07:59 Cyanocobalamin (Cyanocobalamin 1,000 Mcg Tablet) 1,000 mcg PO DAILY [facility] Stop: 04/11/25 08:59 Last Admin: 04/15/24 08:29 Dose: 1,000 mcg Cyclobenzaprine HCl (Cyclobenzaprine 10 Mg Tablet) 10 mg PO Q8HR PRN PRN Reason: Muscle Spasm Stop: 04/12/25 13:36 Last Admin: 04/14/24 20:39 Dose: 10 mg Epinephrine HCl (Epinephrine/Pf 1 Mg/Ml Ampul) 0.3 mg IM ONCE PRN PRN Reason: anaphylaxis Fluticasone Propionate (Fluticasone Propionate Park 120 Park/16 Gm Bottle) 1 spray INTRANASAL DAILY PRN PRN Reason: Allergy Symptoms Stop: 04/10/25 23:14 Gabapentin (Gabapentin 400 Mg Capsule) 400 mg PO TID [facility] Stop: 04/11/25 08:59 Hydromorphone HCl (Hydromorphone 0.5 Mg/0.5 Ml Syringe) 0.5 mg IV-PUSH Q2H PRN PRN Reason: Pain Last Admin: 04/13/24 00:13 Dose: 0.5 mg Cefepime HCl (Maxipime) 2 gm in 50 mls @ 12.5 mls/hr IV Q8H [facility] Last Admin: 04/15/24 02:22 Dose: 12.5 mls/hr Ipratropium [place] (Ipratropium [place] 0.5 Mg/2.5 Ml Vial.Neb) 0.5 mg INHALATION Q4H PRN PRN Reason: Shortness Of Breath Or Wheezing Stop: 04/14/25 14:33 Lactulose (Lactulose 20 Gm/30 Ml Udc) 20 gm PO TID [facility] Stop: 04/14/25 13:59 Last Admin: 04/15/24 08:29 Dose: 20 gm Melatonin (Melatonin 3 Mg Tablet) 3 mg PO QHS [facility] Stop: 04/11/25 21:59 Last Admin: 04/14/24 21:52 Dose: 3 mg Naloxone HCl (Naloxone Hcl 2 Mg/2 Ml Syringe) 2 mg INHALATION Q2M PRN PRN Reason: opioid overdose Stop: 04/10/25 23:14 Oxycodone HCl (Oxycodone Ir 5 Mg Tablet) 10 mg PO Q6HR PRN PRN Reason: Pain Stop: 04/10/25 23:14 Last Admin: 04/14/24 21:52 Dose: 10 mg Pantoprazole Sodium (Pantoprazole 40 Mg Tablet.Dr) 40 mg PO BID [facility] Stop: 04/11/25 08:59 Last Admin: 04/15/24 08:29 Dose: 40 mg Potassium Chloride (Potassium Chloride Er 10 Meq Capsule.Er) 10 meq PO DAILY [facility] Stop: 04/11/25 08:59 Last Admin: 04/15/24 08:29 Dose: 10 meq Prochlorperazine Edisylate (Prochlorperazine Edisylate 10 Mg/2 Ml Vial) 5 mg IV- PUSH Q4H PRN PRN Reason: Nausea And Vomiting Stop: 04/11/25 14:30 Last Admin: 04/14/24 16:30 Dose: 5 mg Sodium Chloride (Sodium Chloride 0.9 % 10 Ml Syringe) 0 ml IV-PUSH PRN PRN PRN Reason: Flush Stop: 04/10/25 17:05 Last Admin: 04/14/24 12:44 Dose: 10 ml A&P - Infectious Disease Assessment/Plan (1) Acute alteration in mental status: (2) Bacteremia: (3) Spontaneous bacterial peritonitis: Plan Patient was seen and examined at bedside today. Currently being treated with Cefepime 2gm q8. Patient reports improvement in the abdominal pain. She does report that she continues to have a cough today. Patient denies any fever, chills, N/V, chest pain, dysuria, lightheadedness, or dizziness. Ascitic fluid and blood cultures with 1 in the same organism. Planning 2 to 3 weeks of treatment. She hasa port in right chest wall so antibiotics can be given through this. Documented By: Lakeisha Miller MD 04/15/24 1041 Signed By: <Electronically signed by MD Lakeisha Miller> 04/15/24 1237 <Electronically signed by MD MARISEL Hughes> 04/15/24 1051 [facility] Work Phone: 1(444) 717-930506-13-2024 Progress note Author Ricthie Mcmillan [facility] April 14, 2024 6:28pmNote Date/TimeJune 2023 6:[place] [address] Progress Note Signed Patient: Mojgan Pérez MR#: [id number] : 1955 Acct:[id number] Age/Sex: 68 / F Adm Date: 4 Loc: Room: [address] [place] [address] Type: ADM IN Attending Dr: Modesto Aquino MD Copies to: ~ Date of Service: 04/14/2024 Progress Narrative Note PROGRESS NOTE Progress Note: Patient has been weaned off pressors and continues on cefepime for spontaneous bacterial peritonitis with Enterobacter cloacae with positive blood culture x 1 with subsequent negative cultures. Patient is stable for transfer out of the ICU from a pulmonary/critical care medicine perspective. Pulmonary/critical care medicine will sign off. Please call if we can be of further assistance. Documented By: Ritchie Mcmillan MD 1826 Signed By: <Electronically signed by MD Ritchie Mcmillan> 04/14/241827 [facility] Work Phone: 1(191) 462-174806-13-2024 Progress note Author Modesto Aquino [facility] April 14, 2024 2:34pmNote Date/TimeJune 2023 2:20[place] [address] Hospitalist Progress Note Signed Patient: Mojgan Pérez MR#: [id number] : 1955 Acct:[id number] Age/Sex: 68 / F Adm Date: 4 Loc: Room: [address] [place] [address] Type: ADM IN Attending Dr: Modesto Aquino MD Copies to: ~ Date of Service: 04/14/2024 Subjective Subjective Narrative: Patient was seen and evaluated at bedside. Remained afebrile overnight. WBC stable. HB improved to 8. Given blood transfusion yesterday. BP is better today , stable off pressors. She did improve withIV fluids. maintaining sinus rhythm with controlled rate. Exam Physical Exam Vital Signs: Temp Pulse Resp BP Pulse Ox O2 Del Method O2 Flow Rate 98.0 F 78 18 119/67 97 Nasal Cannula 2 04/14/24 10:00 04/14/24 12:00 04/14/24 12:00 04/14/24 12:00 04/14/24 12:00 04/14/24 12:00 04/14/24 12:00 Narrative: Const General: more comfortable HEENT Normal oropharyngeal mucosa without any ulcers or exudates Eyes: Conjunctiva normal Pulmonary Auscultation: diminished breath sounds on lung bases , no crackles, no wheezes R chest port Cardiovascular Rate: normal Rhythm: regular rhythm Heart Sounds: S1 normal, S2 normal and no murmurs GI Inspection: non-distended Palpation: soft, nontender. No rigidity or rebound. Deferred Neuro General: alert, awake and oriented x3. No obvious new focal deficit Musculoskeletal: normal range of motion Extrem General: no cyanosis, trace pedal edema Psych Appearance: calm Objective Lab Results 04/14/24 05:58 04/14/24 05:58 Microbiology Results Microbiology 04/11/24 11:45 Blood - Port Blood Culture - Preliminary No Growth 3 Days 04/11/24 10:33 Blood - Right Antecubital Blood Culture - Preliminary No Growth 3 Days 04/11/24 03:30 Ascites Fluid Aerobic Culture - Final Enterobacter cloacae complex 04/11/24 03:30 Ascites Fluid Anaerobic Culture - Final No Anaerobes Isolated 3 Days 04/11/24 03:30 Ascites Fluid Gram Stain - Final 04/10/24 17:20 Blood - Other Blood Culture - Final Enterobacter cloacae complex 04/10/24 17:20 Blood - Other Bacterial ID (NA Multiplex Assay) - Final 04/11/24 03:36 Sputum - Expectorated Aerobic Culture - Final Moderate Normal Respiratory Alysha 2 Days 04/11/24 03:36 Sputum - Expectorated Gram Stain - Final Meds Allergies and Active Meds Allergies diclofenac [From Voltaren] Allergy (Unknown, Verified 04/10/24 17:08) Hives doxycycline [From Vibramycin] Allergy (Unknown, Verified 04/10/24 17:08) Hives moxifloxacin [From Avelox] Allergy (Unknown, Verified 04/10/24 17:08) Hives erythromycin base [From E-Mycin] Allergy (Verified 04/10/24 17:08) Hives latex Allergy (Verified 04/10/24 17:08) Unknown Reaction Quinolones Allergy (Verified 04/10/24 17:08) Unknown Reaction tetracycline Allergy (Verified 04/10/24 17:08) Unknown Reaction Active Meds: Active Medications Generic Name Dose Route Start Last Admin Trade Name Freq PRN Reason Stop Dose Admin Acyclovir 400 mg 04/11/24 09:00 04/14/24 08:11 Acyclovir 400 Mg Tablet PO 400 mg BID [facility] Administration Albuterol 2 puff 04/10/24 23:15 Albuterol Hfa 60 Puff/8 Gram Inhaler INHALATION 04/10/25 23:14 Q4H PRN Shortness Of Breath Albuterol 2.5 mg 04/11/24 00:00 04/14/24 11:40 Albuterol Neb 2.5 Mg/3 Ml Vial.Neb INHALATION 04/11/25 00:00 2.5 mg Q6HR [facility] Administration Atorvastatin Calcium 80 mg 04/11/24 09:00 04/14/24 08:11 Atorvastatin 80 Mg Tablet PO 04/11/25 08:59 80 mg DAILY [facility] Administration Benzonatate 100 mg 04/13/24 17:25 04/14/24 10:09 Benzonatate 100 Mg Capsule PO 04/13/25 17:24 100 mg TID PRN Administration Cough Carvedilol 12.5 mg 04/11/24 08:00 Carvedilol 12.5 Mg Tablet PO 04/11/25 07:59 BID.WITH.MEALS [facility] Cyanocobalamin 1,000 mcg 04/11/24 09:00 04/14/24 08:11 Cyanocobalamin 1,000 Mcg Tablet PO 04/11/25 08:59 1,000 mcg DAILY [facility] Administration Cyclobenzaprine HCl 10 mg 04/12/24 13:37 Cyclobenzaprine 10 Mg Tablet PO 04/12/25 13:36 Q8HR PRN Muscle Spasm Epinephrine HCl 0.3 mg 04/10/24 23:15 Epinephrine/Pf 1 Mg/Ml Ampul IM ONCE PRN anaphylaxis Fluticasone Propionate 1 spray 04/10/24 23:15 Fluticasone Propionate Park 120 Park/16 Gm Bottle INTRANASAL 04/10/25 23:14 DAILY PRN Allergy Symptoms Gabapentin 400 mg 04/11/24 09:00 Gabapentin 400 Mg Capsule PO 04/11/25 08:59 TID [facility] Hydromorphone HCl 0.5 mg 04/11/24 03:54 04/13/24 00:13 Hydromorphone 0.5 Mg/0.5 Ml Syringe IV-PUSH 0.5 mg Q2H PRN Administration Pain Albumin Human 25 gm in 100 mls @ 200 mls/hr 04/12/24 16:00 04/14/24 08:26 Albuminar-25 IV 04/12/25 15:59 200 mls/hr Q8H [facility] Administration Cefepime HCl 2 gm in 50 mls @ 12.5 mls/hr 04/14/24 10:00 04/14/24 10:09 Maxipime IV 12.5 mls/hr Q8H [facility] Administration Lactulose 20 gm 04/14/24 14:00 Lactulose 20 Gm/30 Ml Udc PO 04/14/25 13:59 TID [facility] Melatonin 3 mg 04/11/24 22:00 04/13/24 22:03 Melatonin 3 Mg Tablet PO 04/11/25 21:59 3 mg QHS [facility] Administration Naloxone HCl 2 mg 04/10/24 23:15 Naloxone Hcl 2 Mg/2 Ml Syringe INHALATION 04/10/25 23:14 Q2M PRN opioid overdose Oxycodone HCl 10 mg 04/10/24 23:15 04/14/24 12:53 Oxycodone Ir 5 Mg Tablet PO 04/10/25 23:14 10 mg Q6HR PRN Administration Pain Pantoprazole Sodium 40 mg 04/11/24 09:00 04/14/24 08:11 Pantoprazole 40 Mg Tablet.Dr PO 04/11/25 08:59 40 mg BID [facility] Administration Potassium Chloride 10 meq 04/11/24 09:00 04/14/24 08:11 Potassium Chloride Er 10 Meq Capsule.Er PO 04/11/25 08:59 10 meq DAILY [facility] Administration Prochlorperazine Edisylate 5 mg 04/11/24 14:31 04/14/24 12:43 Prochlorperazine Edisylate 10 Mg/2 Ml Vial IV-PUSH 04/11/25 14:30 5 mg Q4H PRN Administration Nausea And Vomiting Sodium Chloride 0 ml 04/10/24 17:06 04/14/24 12:44 Sodium Chloride 0.9 % 10 Ml Syringe IV-PUSH 04/10/25 17:05 10 ml PRN PRN Administration Flush A&P - Hospitalist Assessment/Plan (1) Acute metabolic encephalopathy: (2) Septic shock: (3) Spontaneous bacterial peritonitis: (4) Bacteremia: (5) Acute alteration in mental status: (6) DM2 (diabetes mellitus, type 2): (7) COPD (chronic obstructive pulmonary disease): (8) 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 Given IV albumin> BP improved. -Continue AB to IV Cefepime dosing per pharmacy -ID consulted. Input appreciated. Repeat blood cultures negative to date. Likelybacteremia due to SBP -Pulmonary consulted for CC management. Input appreciated. -GI consulted. Input appreciated. -Continue supportive care Chemo related Pancytopenia 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- with moderate ascites Anasarca Multiple myeloma -H/H stable so far. WBC stable. PLT count stable. No signs of bleeding so far. Acute kidney injury in the setting of sepsis and volume depletion -Cr improved back to normal -Will try to keep appropriate fluid balance with IV fluids and diuretics, treating underlying sepsis -Hold ACEI -Monitor kidney function New Afib with RVR- converted to NSR- rate controlled -Likely driven by sepsis and possibly volume depletion -Optimize electrolytes -Rate control as needed -Cardiac monitoring -Placed on amiodarone drip. plan to stop today per cardio -Cardiology consulted. input appreciated. Acute on chronic anemia Symptomatic anemia -Hb 8.0 today. -Given 1 unit of blood with improvement in hemodynamics. -No signs of over GI bleed -Monitor H/H Constipation -Increased Lactulose, added Dulcolax DVT ppx: SCDs, avoiding AP/AC due to thrombocytopenia and risk of bleed Diet: as directed Discussed with pt and family at bedside, all questions answered. Documented By: Modesto Aquino MD 04/14/24 14 17 Signed By: <Electronically signed by Modesto Aquino MD> 04/14/24 9743 [facility] Work Phone: 1(577) 498-186306-13-2024 Progress note Author João Belcher [facility] April 14, 2024 11:49amNote Date/TimeJun2023 11:[address] [address] Cardiology Progress Note Signed with Addenda Patient: Mojgan Pérez MR#: [id number] : 1955 Acct:[id number] Age/Sex: 68 / F Adm Date: 4 Loc: Room: [address] [place] [address] Type: ADM IN Attending Dr: Modesto Aquino MD Copies to: ~ ADDENDUM1 Addendum: - Discussed with primary team Dr. Aquino. She is stable from cardiac standpointand leaving the ICU. - Will see as needed. - She will f/u with me in 6 weeks. We will discuss OAC at that point if Plt count has recovered. She may continue other home meds as seen fit at discharge by primary service. Addendum Documented By: João Belcher MD 04/14/24 1149 Addendum Signed By: <Electronically signed by João Belcher MD> 04/14/24 1149 Date of Service: 04/14/2024 Subjective Principal diagnosis: AFib Interval history: Improving. Back in NSR. Denies chest pain, palpitations, SOB. Exam Physical Exam Vital Signs: Temp Pulse Resp BP Pulse Ox O2 Del Method O2 Flow Rate 97.8 F 78 18 128/79 97 Nasal Cannula 2 04/14/24 08:00 04/14/24 08:00 04/14/24 08:00 04/14/24 08:00 04/14/24 08:00 04/14/24 08:00 04/14/24 08:00 Narrative: Physical Exam: General: NAD, A&Ox3, Cooperative Head, Eyes: NC/AT, EOMI Lungs: Good air entry; No crackles or wheezes Heart: S1S2 normal, Regular rhythm, No murmurs/rubs/gallop, No JVD Extremities: No edema. Abdomen: Soft, non-tender, non-distended. Neuro: CN grossly intact, No focal deficits. Psych: Normal mood & affect. Objective Labs 04/14/24 05:58 04/14/24 05:58 Labs: Laboratory Results - last 24 hr 04/11/24 04/14/24 16:36 05:58 Corrected WBC 4.0 Uncorrected WBC Count 4.0 RBC 3.16 L Hgb 8.0 L Hct 24.9 L MCV 79.0 L MCH 25.4 MCHC 32.2 RDW 20.9 H Plt Count 27 L* MPV 8.5 Neut % (Auto) 76.2 Lymph % (Auto) 7.2 Hodgeman % (Auto) 15.0 Eos % (Auto) 1.1 Baso % (Auto) 0.5 Nucleat RBC Rel Count 0.1 Neut # (Auto) 3.1 Lymph # (Auto) 0.3 L Hodgeman # (Auto) 0.6 Eos # (Auto) 0.0 Baso # (Auto) 0.0 Dohle Bodies Slight Platelet Estimate Decreased Plt Morphology Comment Normal RBC Morphology N/A Polychromasia Slight Hypochromasia Moderate Poikilocytosis Slight Anisocytosis Moderate Microcytosis Moderate PT 16.0 H INR 1.4 APTT 34.2 PHA Creatinine Clear 68.25 Sodium 138 Potassium 3.5 Chloride 110 H Carbon Dioxide 20.5 L Anion Gap 11.0 BUN 22 Creatinine 0.78 Est GFR (CKD-EPI) > 60.0 Glucose 131 H Calcium 8.0 L Magnesium 2.0 Total Bilirubin 3.1 H AST 24 ALT 11 Alkaline Phosphatase 84 Total Protein 5.4 L Albumin 3.8 Globulin 1.6 Albumin/Globulin Ratio 2.4 Crossmatch (AHG) See Detail A&P - Cardiology (1) Septic shock: Code(s): A41.9 - Sepsis, unspecified organism; R65.21 - Severe sepsis with septic shock (2) Acute metabolic encephalopathy: Code(s): G93.41 - Metabolic encephalopathy (3) Spontaneous bacterial peritonitis: Code(s): K65.2 - Spontaneous bacterial peritonitis (4) Acute alteration in mental status: Code(s): R41.82 - Altered mental status, unspecified (5) Paroxysmal atrial fibrillation: Code(s): I48.0 - Paroxysmal atrial fibrillation Plan # Multiple acute problems: Infected right chest chemo port, Enterobacter bacteremia, SBP, rhinovirus positive, sepsis with septic shock, acute metabolic encephalopathy, RAQUEL # Multiple chronic problems: Multiple myeloma on chemotherapy with resultant pancytopenia, liver cirrhosis 2/2 KAPADIA with moderate ascites # Newly diagnosed AFib - Was likely secondary AFib due to acute issues above. Check TSH in future. Echo 11/06/22 - EF 55-60%, normal LV size and thickness, G1DD, trace AR and TR, Aortic root 4.2cm. - She is back in NSR now. Stop amiodarone. Monitor for any further afib. - Holding home coreg and lisinopril given septic shock this admission. - Avoid OAC for now. High bleeding risk. Will consider as outpatient. - Continue to treat underlying acute issues: infection, volume status, pain, etc. Documented By: João Belcher MD 04/02 Signed By: <Electronically signed by João Belcher MD> 04/14/[address] [place] [address] Work Phone: 1(480) 212-220606-13-2024 Progress note Author Lakeisha Miller [facility] April 14, 2024 10:28amNote Date/TimeJune 2023 10:00[place] [address] Infect. Disease Progress Note Signed Patient: Mojgan Pérez MR#: [id number] : 1955 Acct:[id number] Age/Sex: 68 / F Adm Date: 4 Loc: Room: [address] [place] [address] Type: ADM IN Attending Dr: Modesto Aquino MD Copies to: ~ Date of Service: 04/14/2024 Subjective Interval history: Ms. Pérez is a 68 year old female admitted for AMS and spontaneous bacterial peritonitis. Patient was seen and examined at bedside today. Patient reports improvement in the abdominal pain, but continues to have pain. She states that she continues to have a productive cough. She denies any bowel movements. Deniesany dysuria, fever, chills, N/V, chest pain, dysuria, lightheadedness, or dizziness. Vitals stable at the time of exam. Afebrile. WBC at 9.7 today. Exam Physical Exam Vital Signs: Temp Pulse Resp BP Pulse Ox O2 Del Method O2 Flow Rate 97.8 F 78 18 128/79 97 Nasal Cannula 2 04/14/24 08:00 04/14/24 08:00 04/14/24 08:00 04/14/24 08:00 04/14/24 08:00 04/14/24 08:00 04/14/24 08:00 Narrative: General: Alert, awake, oriented X3. Slow speech noted. Skin: No rash or lesions noted. HEENT: head atraumatic, face symmetrical. No lymphadenopathy. Pulm: Clear to auscultation bilaterally. Normal respiratory effort. No wheezing, rhonchi, or crackles noted on exam. Cardio: Regular rate and rhythm Abdomen: Normal visual inspection. Soft. Bowel sounds normal. Mild tenderness to light touch diffusely across the abdomen. Musculoskeletal: Moves all extremities, normal strength all extremities. Neuro: Pt alert, oriented x3. CN's II-XII intact bilaterally. normal sensation. Objective Labs CBC/BMP: CBC, BMP 04/14/24 05:58 Corrected WBC 4.0 Uncorrected WBC Count 4.0 RBC 3.16 L Hgb 8.0 L Hct 24.9 L Plt Count 27 L* Sodium 138 Potassium 3.5 Chloride 110 H Carbon Dioxide 20.5 L Anion Gap 11.0 BUN 22 Creatinine 0.78 Calcium 8.0 L Labs: 04/14/24 05:58 BUN 22 Creatinine 0.78 Microbiology Microbiology: Microbiology - Results from entire visit 04/11/24 03:30 Ascites Fluid Aerobic Culture - Final Enterobacter cloacae complex 04/11/24 03:30 Ascites Fluid Anaerobic Culture - Final No Anaerobes Isolated 3 Days 04/11/24 03:30 Ascites Fluid Gram Stain - Final 04/10/24 17:20 Blood - Other Blood Culture - Final Enterobacter cloacae complex 04/10/24 17:20 Blood - Other Bacterial ID (NA Multiplex Assay) - Final 04/11/24 03:36 Sputum - Expectorated Aerobic Culture - Final Moderate Normal Respiratory Alysha 2 Days 04/11/24 03:36 Sputum - Expectorated Gram Stain - Final 04/11/24 11:45 Blood - Port Blood Culture - Preliminary No Growth 2 Days 04/11/24 10:33 Blood - Right Antecubital Blood Culture - Preliminary No Growth 2 Days 04/11/24 03:55 Nasopharyngeal Respiratory Panel (PCR) - Final Allergies and Medications Allergies and Active Meds Allergies diclofenac [From Voltaren] Allergy (Unknown, Verified 04/10/24 17:08) Hives doxycycline [From Vibramycin] Allergy (Unknown, Verified 04/10/24 17:08) Hives moxifloxacin [From Avelox] Allergy (Unknown, Verified 04/10/24 17:08) Hives erythromycin base [From E-Mycin] Allergy (Verified 04/10/24 17:08) Hives latex Allergy (Verified 04/10/24 17:08) Unknown Reaction Quinolones Allergy (Verified 04/10/24 17:08) Unknown Reaction tetracycline Allergy (Verified 04/10/24 17:08) Unknown Reaction Active Medications Acyclovir (Acyclovir 400 Mg Tablet) 400 mg PO BID [facility] Last Admin: 04/14/24 08:11 Dose: 400 mg Albuterol (Albuterol Hfa 60 Puff/8 Gram Inhaler) 2 puff INHALATION Q4H PRN PRN Reason: Shortness Of Breath Stop: 04/10/25 23:14 Albuterol (Albuterol Neb 2.5 Mg/3 Ml Vial.Neb) 2.5 mg INHALATION Q6HR [facility] Stop: 04/11/25 00:00 Last Admin: 04/14/24 05:50 Dose: 2.5 mg Atorvastatin Calcium (Atorvastatin 80 Mg Tablet) 80 mg PO DAILY [facility] Stop: 04/11/25 08:59 Last Admin: 04/14/24 08:11 Dose: 80 mg Benzonatate (Benzonatate 100 Mg Capsule) 100 mg PO TID PRN PRN Reason: Cough Stop: 04/13/25 17:24 Last Admin: 04/13/24 17:36 Dose: 100 mg Carvedilol (Carvedilol 12.5 Mg Tablet) 12.5 mg PO BID.WITH.MEALS [facility] Stop: 04/11/25 07:59 Cyanocobalamin (Cyanocobalamin 1,000 Mcg Tablet) 1,000 mcg PO DAILY [facility] Stop: 04/11/25 08:59 Last Admin: 04/14/24 08:11 Dose: 1,000 mcg Cyclobenzaprine HCl (Cyclobenzaprine 10 Mg Tablet) 10 mg PO Q8HR PRN PRN Reason: Muscle Spasm Stop: 04/12/25 13:36 Epinephrine HCl (Epinephrine/Pf 1 Mg/Ml Ampul) 0.3 mg IM ONCE PRN PRN Reason: anaphylaxis Fluticasone Propionate (Fluticasone Propionate Park 120 Park/16 Gm Bottle) 1 spray INTRANASAL DAILY PRN PRN Reason: Allergy Symptoms Stop: 04/10/25 23:14 Gabapentin (Gabapentin 400 Mg Capsule) 400 mg PO TID [facility] Stop: 04/11/25 08:59 Hydromorphone HCl (Hydromorphone 0.5 Mg/0.5 Ml Syringe) 0.5 mg IV-PUSH Q2H PRN PRN Reason: Pain Last Admin: 04/13/24 00:13 Dose: 0.5 mg Albumin Human (Albuminar-25) 25 gm in 100 mls @ 200 mls/hr IV Q8H [facility] Stop: 04/12/25 15:59 Last Admin: 04/14/24 08:26 Dose: 200 mls/hr Cefepime HCl (Maxipime) 2 gm in 50 mls @ 12.5 mls/hr IV Q8H [facility] Lactulose (Lactulose 20 Gm/30 Ml Udc) 20 gm PO TID [facility] Stop: 04/14/25 13:59 Melatonin (Melatonin 3 Mg Tablet) 3 mg PO QHS [facility] Stop: 04/11/25 21:59 Last Admin: 04/13/24 22:03 Dose: 3 mg Naloxone HCl (Naloxone Hcl 2 Mg/2 Ml Syringe) 2 mg INHALATION Q2M PRN PRN Reason: opioid overdose Stop: 04/10/25 23:14 Oxycodone HCl (Oxycodone Ir 5 Mg Tablet) 10 mg PO Q6HR PRN PRN Reason: Pain Stop: 04/10/25 23:14 Last Admin: 04/13/24 19:33 Dose: 10 mg Pantoprazole Sodium (Pantoprazole 40 Mg Tablet.Dr) 40 mg PO BID [facility] Stop: 04/11/25 08:59 Last Admin: 04/14/24 08:11 Dose: 40 mg Potassium Chloride (Potassium Chloride Er 10 Meq Capsule.Er) 10 meq PO DAILY [facility] Stop: 04/11/25 08:59 Last Admin: 04/14/24 08:11 Dose: 10 meq Prochlorperazine Edisylate (Prochlorperazine Edisylate 10 Mg/2 Ml Vial) 5 mg IV- PUSH Q4H PRN PRN Reason: Nausea And Vomiting Stop: 04/11/25 14:30 Last Admin: 04/14/24 08:26 Dose: 5 mg Sodium Chloride (Sodium Chloride 0.9 % 10 Ml Syringe) 0 ml IV-PUSH PRN PRN PRN Reason: Flush Stop: 04/10/25 17:05 A&P - Infectious Disease Assessment/Plan (1) Acute alteration in mental status: (2) Bacteremia: (3) Spontaneous bacterial peritonitis: Plan Patient was seen and examined at bedside today. Currently being treated with Cefepime 2gm q8. Patient reports improvement in the abdominal pain. She does report that she continues to have a cough today. Patient denies any fever, chills, N/V, chest pain, dysuria, lightheadedness, or dizziness. Denies any BM today. Ascitic fluid and blood cultures with 1 in the same organism. Planning 2 to 3 weeks of treatment. She has a port in right chest wall so antibiotics can be given through this. Will see on an as-needed basis. Documented By: Lakeisha Miller MD 04/14/24 0954 Signed By: <Electronically signed by MD Lakeisha Miller> 04/14/24 1028 <Electronically signed by MD MARISEL Hughes> 04/14/24 1000 [facility] Work Phone: 1(880) 993-362806-12-2024 Consult note Author João Belcher [facility] April 13, 2024 3:26pmNote Date/TimeJune 2023 11:57[place] [address] Cardiology Consult Note Signed Patient: Mojgan Pérez MR#: [id number] : 1955 Acct:[id number] Age/Sex: 68 / F Adm Date: 4 Loc: Room: [address] [place] [address] Type: ADM IN Attending Dr: Modesto Aquino MD Copies to: MD João Amezquita MD Obaydah M Daromar, MD~ Cardiology HPI History of Present Illness Consult Date: 04/13/24 HPI: Ms. Pérez is a 68-year-old female with a past medical history below who is admitted to [facility] since 04/10/2024 due to septic shocksecondary to spontaneous bacterial peritonitis thought to be due to infection ofright chest chemotherapy port catheter. The patient was also ence phalopathic likely due to sepsis and was found to have Enterobacter bacteremia and rhinovirus positive. She has liver cirrhosis secondary to Kapadia with moderate ascites and anasarca and has been on treatment for multiple myeloma with chemotherapy and is pancytopenic. During these acute events the patient also hadAKI. Yesterday, 04/12/2024, she was noted to go into A-fib rhythm, thus cardiology was consulted. She has made some improvement on antibiotic therapy. Pressor requirements have decreased and encephalopathy has improved. She is dehydrated, with decreased urine output, and has been receiving IVF. Review of Systems Review of Systems All other systems reviewed & are negative unless noted below or in HPI [facility] Medical History DM2 (diabetes mellitus, type 2) Smoldering multiple myeloma (SMM) Neuropathy Hypertension Multiple myeloma Temporary low platelet count COPD (chronic obstructive pulmonary disease) PFT: 02/24/2024 -FEV1/FVC: 70% -FEV1: 87% -FVC: 95% -ZXQ74-74%: 60% -Bronchodilator response: None -RV: 118% -T% -DLCO: 71% -Flow-volume loop: Mild obstruction Smoldering myeloma Fibromyalgia Neutropenia Diabetes Iron deficiency Smoldering multiple myeloma (SMM) GERD (gastroesophageal reflux disease) Aortic aneurysm monitoring Surgical History H/O knee surgery 2006 History of appendectomy H/O: hysterectomy 1994 History of cholecystectomy 1989 Family History Brother Cancer lung Hypertension COPD (chronic obstructive pulmonary disease) Alcoholic Father Cancer Legacy FamHx Problem: Diagnosed with Cancer Asthma Emphysema lung Hypertension Alcoholic Family/Other Legacy FamHx Problem: 3 brothers :2 sisters Grandparent Diabetes Legacy FamHx Relation: Maternal Grand Mother Mother Cancer colon Heart disease Hypertension Sister Cancer Legacy FamHx Problem: Diagnosed with Cancer Social History Smoking Status: Former smoker Tobacco Type: cigarettes Substance Use Type: None Substance Abuse Comment: Denies alcohol use Social History Comments: Lives with son Meds Medications and Allergies Allergies diclofenac [From Voltaren] Allergy (Unknown, Verified 04/10/24 17:08) Hives doxycycline [From Vibramycin] Allergy (Unknown, Verified 04/10/24 17:08) Hives moxifloxacin [From Avelox] Allergy (Unknown, Verified 04/10/24 17:08) Hives erythromycin base [From E-Mycin] Allergy (Verified 04/10/24 17:08) Hives latex Allergy (Verified 04/10/24 17:08) Unknown Reaction Quinolones Allergy (Verified 04/10/24 17:08) Unknown Reaction tetracycline Allergy (Verified 04/10/24 17:08) Unknown Reaction Home Medications carvedilol 12.5 mg tablet 12.5 mg PO BID 11/20/17 [History Confirmed 04/10/24] duloxetine 60 mg capsule,delayed release 60 mg PO DAILY 11/20/17 [History Confirmed 04/10/24] albuterol sulfate 90 mcg/actuation aerosol inhaler 2 puff inhalation Q4H PRN Shortness Of Breath 11/24/17 [History Confirmed 04/10/24] metformin 500 mg tablet,extended release 24 hr 500 mg PO BID 03/05/20 [History Confirmed 04/10/24] semaglutide 0.25 mg or 0.5 mg (2 mg/1.5 mL) subcutaneous pen injector (Ozempic) 1 mg subcut QWEEK 09/24/20 [History Confirmed 04/10/24] acyclovir 400 mg tablet 400 mg PO BID 90 days #180 tabs 09/24/22 [Rx Confirmed 04/10/24] atorvastatin 80 mg tablet 80 mg PO DAILY 01/28/23 [History Confirmed 04/10/24] cyanocobalamin (vitamin B-12) 1,000 mcg sublingual tablet 1,000 mcg sublingual DAILY 01/28/23 [History Confirmed 04/10/24] fluticasone propionate 50 mcg/actuation nasal spray,suspension 1 spray intranasal DAILY PRN AllergySymptoms 01/28/23 [History Confirmed 04/10/24] sulfamethoxazole 800 mg-trimethoprim 160 mg tablet 1 tab PO QMWF 90 days #36 tabs 10/21/23 [Rx Confirmed 04/10/24] potassium chloride 10 mEq capsule,extended release See Rx Instructions .Route .COMPLEX #90 caps 02/05/24 [Rx Confirmed 04/10/24] gabapentin 400 mg capsule 400 mg PO TID pain 30 days #90 caps 02/11/24 [Rx Confirmed 04/10/24] albuterol sulfate 2.5 mg/3 mL (0.083 %) solution for nebulization 2.5 mg inhalation Q6HR 03/21/24 [History Confirmed 04/10/24] melatonin 1 mg tablet 2 mg PO QHS 03/21/24 [History Confirmed 04/10/24] naloxone 4 mg/actuation nasal spray 1 spray intranasal Q2-3M PRN opioid gxyfwsal17/20/24 [History Confirmed 04/10/24] sumatriptan succinate 50 mg tablet See Rx Instructions PO .COMPLEX 03/21/24 [History Confirmed 04/10/24] teclistamab-cqyv 10 mg/mL subcutaneous solution (Tecvayli) subcut 03/21/24 [History Confirmed 03/24/24] cholecalciferol (vitamin D3) 125 mcg (5,000 unit) capsule 125 mcg PO DAILY 04/10/24 [History Confirmed 04/10/24] epinephrine 0.3 mg/0.3 mL injection, auto-injector 0.3 mg IM ONCE PRN anaphylaxis 04/10/24 [HistoryConfirmed 04/10/24] lisinopril 5 mg tablet 5 mg PO DAILY 04/10/24 [History Confirmed 04/10/24] omeprazole 40 mg capsule,delayed release 40 mg PO DAILY 04/10/24 [History Confirmed 04/10/24] ondansetron HCl 8 mg tablet 8 mg PO Q8H PRN nausea and vomiting 04/10/24 [History Confirmed 04/10/24] oxycodone 10 mg tablet 10 mg PO QID PRN Pain 04/10/24 [History Confirmed 04/10/24] Exam Physical Exam Vital Signs: Temp Pulse Resp BP Pulse Ox O2 Del Method O2 Flow Rate 97.1 F L 75 18 110/67 97 Nasal Cannula 2 04/13/24 11:13 04/13/24 11:13 04/13/24 11:13 04/13/24 11:13 04/13/24 11:13 04/13/24 11:00 04/13/24 11:00 Narrative: Physical Exam: General: NAD, A&Ox3, Cooperative Head, Eyes: NC/AT, EOMI Lungs: Good air entry; No crackles or wheezes Heart: S1S2 normal, Regular rhythm, No murmurs/rubs/gallop, No JVD Extremities: No edema. Abdomen: Soft, non-tender, non-distended. Neuro: CN grossly intact, No focal deficits. Psych: Normal mood & affect. Results - Cardiology Labs 04/13/24 05:23 04/13/24 05:23 Lab results: Cardiac Enzymes 04/13/24 Range/Units 05:23 AST 26 (13-39) U/L CBC 04/13/24 Range/Units 05:23 RBC 3.02 L (3.60-5.00) X10E6/uL Hgb 7.7 L (11.8-15.4) g/dL Hct 24.1 L (34.0-46.4) % Plt Count 40 L (150-450) x10E3/uL Neut # (Auto) 7.4 (1.8-7.7) x10E3/uL Lymph # (Auto) 0.4 L (1.00-4.8) x10E3/uL Hodgeman # (Auto) 0.7 (0.0-0.8) x10E3/uL Eos # (Auto) 0.1 (0.0-0.45) x10E3/uL Baso # (Auto) 0.0 (0.0-0.2) x10E3/uL Comprehensive Metabolic Panel 04/13/24 Range/Units 05:23 Sodium 137 (136-145) mmol/L Potassium 3.8 (3.5-5.1) mmol/L Chloride 109 H (98-107) mmol/L Carbon Dioxide 20.9 L (21.0-31.0) mmol/L BUN 30 H (7-25) mg/dL Creatinine 1.00 (0.60-1.20) mg/dL Glucose 143 H (70-100) mg/dL Calcium 7.3 L (8.6-10.3) mg/dL AST 26 (13-39) U/L ALT 13 (7-52) U/L Alkaline Phosphatase 72 (34-104) U/L Total Protein 4.6 L (6.4-8.9) gm/dL Albumin 3.2 L (3.5-5.7) gm/dL Intake and Output 04/12/24 04/13/24 04/13/24 22:59 06:59 14:59 Intake Total 150 / 1740 1340 / 1740 Balance 150 / 1740 1340 / 1740 Intake: IV 150 / 1500 1100 / 1500 Albumin Human 25% 25 gm In 100 100 / 200 100 / 200 ml @ 200 mls/hr IV Q8H [facility] Rx#: [id number] Cefepime 2Gm-*Ns* 2 gm In 50 ml 50 / 50 @ 12.5 mls/hr IV Q12H [facility] Rx#: [id number] Sodium Chloride 0.9% 1,000 ml 1 1000 / 1000 ,000 ml @ 100 mls/hr IV .Q10H [facility] Rx#:[id number] Oral 240 / 240 Other: Total Intake (Blood Product) Cumulative Amt Irradiated Leuko Red Rbc Unit 0 [id number] # Unmeasured Voids 1 3 Date of Last Bowel Movement 04/11/24 Lab 04/10/24 04/11/24 04/12/24 17:20 08:05 04:42 PT 16.9 H 22.1 H 28.3 H INR 1.5 1.9 2.5 APTT 110.2 H* 35.8 35.3 04/13/24 05:23 PT 18.3 H INR 1.6 APTT 34.1 A&P - Cardiology (1) Septic shock: Code(s): A41.9 - Sepsis, unspecified organism; R65.21 - Severe sepsis with septic shock (2) Acute metabolic encephalopathy: Code(s): G93.41 - Metabolic encephalopathy (3) Spontaneous bacterial peritonitis: Code(s): K65.2 - Spontaneous bacterial peritonitis (4) Acute alteration in mental status: Code(s): R41.82 - Altered mental status, unspecified (5) Paroxysmal atrial fibrillation: Code(s): I48.0 - Paroxysmal atrial fibrillation Plan # Multiple acute problems: Infected right chest chemo port, Enterobacter bacteremia, SBP, rhinovirus positive, sepsis with septic shock, acute metabolic encephalopathy, RAQUEL # Multiple chronic problems: Multiple myeloma on chemotherapy with resultant pancytopenia, liver cirrhosis 2/2 KAPADIA with moderate ascites # Newly diagnosed AFib Echo 11/06/22 - EF 55-60%, normal LV size and thickness, G1DD, trace AR and TR, Aortic root 4.2cm. - Avoid OAC for now. High bleeding risk. May consider after the acute stage. - Avoid rate controlling agents for now given sepsis and shock. Holding home coreg and lisinopril. Check TSH in future. - Treat underlying acute issues: infection, volume status, pain, etc. - No need to rpt echo. Agree with amiodarone use for rate control. Documented By: João Belcher MD 04/02 12/26 1155 Signed By: <Electronically signed by João Belcher MD> 04/13/24 1526 [facility] Work Phone: 1(670) 335-567306-12-2024 Progress note Author Modesto Aquino [facility] April 13, 2024 3:19pmNote Date/TimeJune 2023 3:[place] [address] Hospitalist Progress Note Signed Patient: Mojgan Pérez MR#: [id number] : 1955 Acct:[id number] Age/Sex: 68 / F Adm Date: 4 Loc: Room: [address] [place] [address] Type: ADM IN Attending Dr: Modesto Aquino MD Copies to: ~ Date of Service: 04/13/2024 Subjective Subjective Narrative: Patient was seen and evaluated at bedside. Remained afebrile overnight. WBC stable. HB slightly decreased to 7.7. BP borderline this am on low dose pressors. She did improve with IV fluids. overnightwent again in Afib and was started on Amiodarone drip. Converted to sinus by the morning. Pt out ofbed to chair, overall improving. Exam Physical Exam Vital Signs: Temp Pulse Resp BP Pulse Ox O2 Del Method O2 Flow Rate 98.0 F 78 18 128/74 98 Nasal Cannula 2 04/13/24 14:35 04/13/24 14:35 04/13/24 14:35 04/13/24 14:35 04/13/24 14:35 04/13/24 14:00 04/13/24 14:00 Narrative: Const General: more comfortable HEENT Normal oropharyngeal mucosa without any ulcers or exudates Eyes: Conjunctiva normal Pulmonary Auscultation: diminished breath sounds on lung bases , no crackles, no wheezes R chest port Cardiovascular Rate: normal Rhythm: regular rhythm Heart Sounds: S1 normal, S2 normal and no murmurs GI Inspection: non-distended Palpation: soft, nontender. No rigidity or rebound. Deferred Neuro General: alert, awake and oriented x3. No obvious new focal deficit Musculoskeletal: normal range of motion Extrem General: no cyanosis, trace pedal edema Psych Appearance: calm Objective Lab Results 04/13/24 05:23 04/13/24 05:23 Microbiology Results Microbiology 04/11/24 03:36 Sputum - Expectorated Aerobic Culture - Final Moderate Normal Respiratory Alysha 2 Days 04/11/24 03:36 Sputum - Expectorated Gram Stain - Final 04/11/24 11:45 Blood - Port Blood Culture - Preliminary No Growth 2 Days 04/11/24 10:33 Blood - Right Antecubital Blood Culture - Preliminary No Growth 2 Days 04/11/24 03:30 Ascites Fluid Aerobic Culture - Final Enterobacter cloacae complex 04/11/24 03:30 Ascites Fluid Anaerobic Culture - Preliminary No Anaerobes Isolated 2 Days 04/11/24 03:30 Ascites Fluid Gram Stain - Final 04/10/24 17:20 Blood - Other Blood Culture - Preliminary Enterobacter cloacae complex 04/10/24 17:20 Blood - Other Bacterial ID (NA Multiplex Assay) - Final Meds Allergies and Active Meds Allergies diclofenac [From Voltaren] Allergy (Unknown, Verified 04/10/24 17:08) Hives doxycycline [From Vibramycin] Allergy (Unknown, Verified 04/10/24 17:08) Hives moxifloxacin [From Avelox] Allergy (Unknown, Verified 04/10/24 17:08) Hives erythromycin base [From E-Mycin] Allergy (Verified 04/10/24 17:08) Hives latex Allergy (Verified 04/10/24 17:08) Unknown Reaction Quinolones Allergy (Verified 04/10/24 17:08) Unknown Reaction tetracycline Allergy (Verified 04/10/24 17:08) Unknown Reaction Active Meds: Active Medications Generic Name Dose Route Start Last Admin Trade Name Freq PRN Reason Stop Dose Admin Acyclovir 400 mg 04/11/24 09:00 04/13/24 08:17 Acyclovir 400 Mg Tablet PO 400 mg BID [facility] Administration Albuterol 2 puff 04/10/24 23:15 Albuterol Hfa 60 Puff/8 Gram Inhaler INHALATION 04/10/25 23:14 Q4H PRN Shortness Of Breath Albuterol 2.5 mg 04/11/24 00:00 04/13/24 13:05 Albuterol Neb 2.5 Mg/3 Ml Vial.Neb INHALATION 04/11/25 00:00 2.5 mg Q6HR [facility] Administration Atorvastatin Calcium 80 mg 04/11/24 09:00 04/13/24 08:17 Atorvastatin 80 Mg Tablet PO 04/11/25 08:59 80 mg DAILY [facility] Administration Carvedilol 12.5 mg 04/11/24 08:00 Carvedilol 12.5 Mg Tablet PO 04/11/25 07:59 BID.WITH.MEALS [facility] Cyanocobalamin 1,000 mcg 04/11/24 09:00 04/13/24 08:18 Cyanocobalamin 1,000 Mcg Tablet PO 04/11/25 08:59 1,000 mcg DAILY [facility] Administration Cyclobenzaprine HCl 10 mg 04/12/24 13:37 Cyclobenzaprine 10 Mg Tablet PO 04/12/25 13:36 Q8HR PRN Muscle Spasm Epinephrine HCl 0.3 mg 04/10/24 23:15 Epinephrine/Pf 1 Mg/Ml Ampul IM ONCE PRN anaphylaxis Fluticasone Propionate 1 spray 04/10/24 23:15 Fluticasone Propionate Park 120 Park/16 Gm Bottle INTRANASAL 04/10/25 23:14 DAILY PRN Allergy Symptoms Gabapentin 400 mg 04/11/24 09:00 Gabapentin 400 Mg Capsule PO 04/11/25 08:59 TID [facility] Hydromorphone HCl 0.5 mg 04/11/24 03:54 04/13/24 00:13 Hydromorphone 0.5 Mg/0.5 Ml Syringe IV-PUSH 0.5 mg Q2H PRN Administration Pain Norepinephrine Bitartrate 16 mg in 250 mls @ 1.875 mls/hr 04/11/24 08:15 04/13/24 12:37 Levophed IV 04/11/25 08:14 Not Given .Q24H [facility] Protocol 2 MCG/MIN Cefepime HCl 2 gm in 50 mls @ 12.5 mls/hr 04/12/24 13:00 04/13/24 12:38 Maxipime IV 12.5 mls/hr Q12H [facility] Administration Albumin Human 25 gm in 100 mls @ 200 mls/hr 04/12/24 16:00 04/13/24 08:17 Albuminar-25 IV 04/12/25 15:59 200 mls/hr Q8H [facility] Administration Amiodarone HCl 450 mg/ 250 mls @ 33.333 mls/hr 04/13/24 03:00 04/13/24 12:37 Dextrose IV 04/14/24 02:59 0.5 mg/min .Q7H30M [facility] 16.67 mls/hr Administration Protocol 1 MG/MIN Sodium Chloride 500 mls @ 20 mls/hr 04/13/24 08:53 0.9 % Sodium Chloride IV 04/14/24 08:52 PROTOCOL PRN BLOOD TRANSFUSION Sodium Chloride 500 mls @ 20 mls/hr 04/13/24 09:00 0.9 % Sodium Chloride IV 04/14/24 08:59 PROTOCOL PRN BLOOD TRANSFUSION Lactulose 10 gm 04/11/24 01:20 04/13/24 13:16 Lactulose 20 Gm/30 Ml Udc PO 04/11/25 01:19 10 gm TID [facility] Administration Melatonin 3 mg 04/11/24 22:00 04/12/24 22:33 Melatonin 3 Mg Tablet PO 04/11/25 21:59 Not Given QHS [facility] Naloxone HCl 2 mg 04/10/24 23:15 Naloxone Hcl 2 Mg/2 Ml Syringe INHALATION 04/10/25 23:14 Q2M PRN opioid overdose Oxycodone HCl 10 mg 04/10/24 23:15 04/13/24 13:16 Oxycodone Ir 5 Mg Tablet PO 04/10/25 23:14 10 mg Q6HR PRN Administration Pain Pantoprazole Sodium 40 mg 04/11/24 09:00 04/13/24 08:18 Pantoprazole 40 Mg Tablet. PO 04/11/25 08:59 40 mg BID [facility] Administration Potassium Chloride 10 meq 04/11/24 09:00 04/13/24 08:18 Potassium Chloride Er 10 Meq Capsule.Er PO 04/11/25 08:59 10 meq DAILY [facility] Administration Prochlorperazine Edisylate 5 mg 04/11/24 14:31 04/13/24 11:09 Prochlorperazine Edisylate 10 Mg/2 Ml Vial IV-PUSH 04/11/25 14:30 5 mg Q4H PRN Administration Nausea And Vomiting Sodium Chloride 0 ml 04/10/24 17:06 Sodium Chloride 0.9 % 10 Ml Syringe IV-PUSH 04/10/25 17:05 PRN PRN Flush A&P - Hospitalist Assessment/Plan (1) Acute metabolic encephalopathy: (2) Septic shock: (3) Spontaneous bacterial peritonitis: (4) Bacteremia: (5) Acute alteration in mental status: (6) DM2 (diabetes mellitus, type 2): (7) COPD (chronic obstructive pulmonary disease): (8) 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 Given IV albumin. -Continue AB to IV Cefepime dosing per pharmacy -ID consulted. Input appreciated. Repeat blood cultures negative to date. Likelybacteremia due to SBP -Pulmonary consulted for CC management. Input appreciated. -GI consulted. Input appreciated. -Continue supportive care Chemo related Pancytopenia 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- with moderate ascites Anasarca Multiple myeloma -H/H stable so far. WBC stable. PLT count stable. No signs of bleeding so far. Acute kidney injury in the setting of sepsis and volume depletion -Cr improved back to normal -Will try to keep appropriate fluid balance with IV fluids and diuretics, treating underlying sepsis -Hold ACEI -Monitor kidney function New Afib with RVR -Likely driven by sepsis and possibly volume depletion -Optimize electrolytes -Rate control as needed -Cardiac monitoring -Placed on amiodarone drip. -Cardiology consulted. input appreciated. Acute on chronic anemia Symptomatic anemia -Hb 7.7. today. -Given 1 unit of blood today with improvement in hemodynamics. -No signs of over GI bleed -Monitor H/H DVT ppx: SCDs, avoiding AP/AC due to thrombocytopenia and risk of bleed Diet: as directed Discussed with pt at bedside, all questions answered. Documented By: Modesto Aquino MD 04/13/24 15 02 Signed By: <Electronically signed by Modesto Aquino MD> 04/13/24 1519 [facility] Work Phone: 1(750) 258-420906-12-2024 Progress note Author Ritchie Mcmillan [facility] April 13, 2024 2:57pmNote Date/TimeJune 2023 9:02[place] [address] Pulmonology Progress Note Signed Patient: Mojgan Pérez MR#: [id number] : 1955 Acct:[id number] Age/Sex: 68 / F Adm Date: 4 Loc: Room: [address] [place] [address] Type: ADM IN Attending Dr: Modesto Aquino MD Copies to: ~ Date of Service: 04/13/2024 Subjective Subjective Narrative: Patient is sitting in chair and is comfortable and appropriately conversant at the time of my visit. There were no issues overnight per nursing staff. Exam Physical Exam Vital Signs: Temp Pulse Resp BP Pulse Ox O2 Del Method O2 Flow Rate 98.1 F 76 20 122/56 L 98 Nasal Cannula 2 04/13/24 08:00 04/13/24 08:10 04/13/24 08:00 04/13/24 08:10 04/13/24 08:00 04/13/24 08:00 04/13/24 08:00 Const General: cooperative Nutritional Appearance: average body habitus Orientation: alert and awake HEENT Head: normal to inspection Ears: hearing grossly normal bilaterally and external ears normal Nose: external nose normal Face and sinus: normal facial exam Teeth and gingiva: edentulous Eyes Eyelids: eyelids normal Sclera: sclerae normal Neck Neck: normal visual inspection Chest Chest palpation & inspection: normal inspection of the chest Resp Effort & Inspection: normal respiratory effort Auscultation: clear to auscultation bilaterally, no rales, no rhonchi and no wheezes Cardio Rate: regular rate Rhythm: regular rhythm Heart Sounds: S1 normal, S2 normal and no murmurs GI Inspection: normal to inspection Palpation: soft and nontender General: deferred Skin General: no rashes or lesions noted (Warm and dry) Extrem General: no pedal edema Objective Intake and Output I&O - Last 24 Hours: Intake & Output 04/12/24 04/13/24 04/13/24 23:59 07:59 15:59 Intake Total 150 / 580 1340 / 1340 Balance 150 / 580 1340 / 1340 Labs 04/13/24 05:23 04/13/24 05:23 Microbiology Micro: Microbiology 3 04/11/24 11:45 Blood Culture - Preliminary Blood - Port No Growth 1 Day 04/11/24 10:33 Blood Culture - Preliminary Blood - Right Antecubital No Growth 1 Day 04/11/24 03:30 Aerobic Culture - Preliminary Ascites Fluid Enterobacter cloacae complex Anaerobic Culture - Preliminary No Anaerobes Isolated 1 Day Gram Stain - Final 04/11/24 03:36 Aerobic Culture - Preliminary Sputum - Expectorated Light Normal Respiratory Alysha 1 Day Gram Stain - Final 04/10/24 17:20 Blood Culture - Preliminary Blood - Other Enterobacter cloacae complex Bacterial ID (NA Multiplex Assay) - Final Assessment/Plan Assessment/Plan (1) Spontaneous bacterial peritonitis: (2) Bacteremia: (3) 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): (4) Rhinovirus infection: Plan Hospital day #3 for patient with history of multiple myeloma and cirrhosis due to nonalcoholic steatohepatitis admitted with abdominal pain with concerns for spontaneous bacterial peritonitis but also with findings of Enterobacter bacteremia with patient having a chronic port. Patient continues with low-dose pressor requirements and will transfuse another unit of packed red blood cells to hopefully increase intravascular volume and be able to wean her off her pressors. Patient continues on cefepime as per infectious disease. I have no new recommendations. Documented By: Ritchie Mcmillan MD 4 0900 Signed By: <Electronically signed by MD Ritchie Mcmillan> 04/13/24 1458 [facility] Work Phone: 1(823) 973-768406-12-2024 Progress note Author Garcia Sanchez [facility] April 13, 2024 2:54pmNote Date/TimeJune 2023 2:52[place] [address] Gastroenterology PN Signed Patient: Mojgan Pérez MR#: [id number] : 1955 Acct:[id number] Age/Sex: 68 / F Adm Date: 4 Loc: Room: [address] [place] [address] Type: ADM IN Attending Dr: Modesto Aquino MD Copies to: MD Garcia Amezquita, DO Modesto Aquino MD~ Date of Service: 04/13/2024 Subjective Subjective Narrative: Ms. Pérez is a 68 year old female with past medical history significant for multiple myeloma on biweekly chemo and monthly IVIG, MASH cirrhosis, COPD, diabetes mellitus, fibromyalgia, GERD who presented to the ED with altered mental status and abdominal pain. Per daughter at patient's bedside she did note that patient has been very fatigued in the last week. She also notes intermittent night sweats. Severe diffuse abdominal pain which started on the day of presentation. No fevers at home. Denies any nausea, vomiting, shortnessof breath, chest pain, palpitations, diarrhea, constipation, signs of bleeding, anorexia, abnormal weight loss. She denies any history of ascites previously. ED course, labs, imaging reviewed. Labs remarkable for sodium of 137, potassium3.4, chloride 104, CO2 22.7, BUN 14, creatinine 0.63, glucose 123, white count 2.3, hemoglobin 10.1, platelets 62, lactate 3.4, ammonia 38, T. bili of 1.9, AST37, ALT 18, alk phos of 70, UA largely unremarkable. Blood cultures sent. Imaging reviewed. Pt started empirically on antibiotics in the ED. admitted for furthermanagement. Diagnostic paracentesis done consistent with +SBP. Ptscontinued to have low grade fevers, tachycardia, hypotension despite, aggressivefluid resuscitation, IV albumin, midodrine overnight so was transferred to ICU for further management. ID following. Updated history: Patient seen and examined. No acute overnight events. Patient received 1 unit of PRBCs today. No overt signs of bleeding. Has been weaned off pressors. Notes abdominal pain improved although she justreceived pain meds. Tolerating diet but eating very little. No fevers, chills, nausea, vomiting. Exam Physical Exam Vital Signs: Temp Pulse Resp BP Pulse Ox O2 Del Method O2 Flow Rate 97.7 F 78 20 126/76 98 Nasal Cannula 2 04/13/24 12:00 04/13/24 14:00 04/13/24 14:00 04/13/24 14:00 04/13/24 14:00 04/13/24 14:00 04/13/24 14:00 Narrative: General appearance: Pleasant, cooperative, A&Ox3, NAD Skin: No jaundice, no rash or lesions Head: NC/AT Eyes: Anicteric, EOMI Neck: Supple, nontender Heart: normal S1 and S2 Lungs: Normal respiratory effort, no use of accessory muscles Abdomen: Soft, +distended, diffuse TTP on exam, bs present, no r/r/g Neuro: normal gait, sensation grossly intact, no focal deficits Ext: no edema or tenderness. Objective Allergies and Medications Allergies/Adverse Reactions: Allergies Allergy/AdvReac Type Severity Reaction Status Date / Time diclofenac [From Voltaren] Allergy Unknown Hives Verified 04/10/24 17:08 doxycycline [From Vibramycin] Allergy Unknown Hives Verified 04/10/24 17:08 moxifloxacin [From Avelox] Allergy Unknown Hives Verified 04/10/24 17:08 erythromycin base Allergy Hives Verified 04/10/24 17:08 [From E-Mycin] latex Allergy Unknown Verified 04/10/24 17:08 Reaction Quinolones Allergy Unknown Verified 04/10/24 17:08 Reaction tetracycline Allergy Unknown Verified 04/10/24 17:08 Reaction Active Meds: Active Medications Generic Name Dose Route Start Last Admin Trade Name Freq PRN Reason Stop Dose Admin Acyclovir 400 mg 04/11/24 09:00 04/13/24 08:17 Acyclovir 400 Mg Tablet PO 400 mg BID [facility] Administration Albuterol 2 puff 04/10/24 23:15 Albuterol Hfa 60 Puff/8 Gram Inhaler INHALATION 04/10/25 23:14 Q4H PRN Shortness Of Breath Albuterol 2.5 mg 04/11/24 00:00 04/13/24 13:05 Albuterol Neb 2.5 Mg/3 Ml Vial.Neb INHALATION 04/11/25 00:00 2.5 mg Q6HR [facility] Administration Atorvastatin Calcium 80 mg 04/11/24 09:00 04/13/24 08:17 Atorvastatin 80 Mg Tablet PO 04/11/25 08:59 80 mg DAILY [facility] Administration Carvedilol 12.5 mg 04/11/24 08:00 Carvedilol 12.5 Mg Tablet PO 04/11/25 07:59 BID.WITH.MEALS [facility] Cyanocobalamin 1,000 mcg 04/11/24 09:00 04/13/24 08:18 Cyanocobalamin 1,000 Mcg Tablet PO 04/11/25 08:59 1,000 mcg DAILY [facility] Administration Cyclobenzaprine HCl 10 mg 04/12/24 13:37 Cyclobenzaprine 10 Mg Tablet PO 04/12/25 13:36 Q8HR PRN Muscle Spasm Epinephrine HCl 0.3 mg 04/10/24 23:15 Epinephrine/Pf 1 Mg/Ml Ampul IM ONCE PRN anaphylaxis Fluticasone Propionate 1 spray 04/10/24 23:15 Fluticasone Propionate Park 120 Park/16 Gm Bottle INTRANASAL 04/10/25 23:14 DAILY PRN Allergy Symptoms Gabapentin 400 mg 04/11/24 09:00 Gabapentin 400 Mg Capsule PO 04/11/25 08:59 TID [facility] Hydromorphone HCl 0.5 mg 04/11/24 03:54 04/13/24 00:13 Hydromorphone 0.5 Mg/0.5 Ml Syringe IV-PUSH 0.5 mg Q2H PRN Administration Pain Norepinephrine Bitartrate 16 mg in 250 mls @ 1.875 mls/hr 04/11/24 08:15 04/13/24 12:37 Levophed IV 04/11/25 08:14 Not Given .Q24H [facility] Protocol 2 MCG/MIN Cefepime HCl 2 gm in 50 mls @ 12.5 mls/hr 04/12/24 13:00 04/13/24 12:38 Maxipime IV 12.5 mls/hr Q12H [facility] Administration Albumin Human 25 gm in 100 mls @ 200 mls/hr 04/12/24 16:00 04/13/24 08:17 Albuminar-25 IV 04/12/25 15:59 200 mls/hr Q8H [facility] Administration Amiodarone HCl 450 mg/ 250 mls @ 33.333 mls/hr 04/13/24 03:00 04/13/24 12:37 Dextrose IV 04/14/24 02:59 0.5 mg/min .Q7H30M [facility] 16.67 mls/hr Administration Protocol 1 MG/MIN Sodium Chloride 500 mls @ 20 mls/hr 04/13/24 08:53 0.9 % Sodium Chloride IV 04/14/24 08:52 PROTOCOL PRN BLOOD TRANSFUSION Sodium Chloride 500 mls @ 20 mls/hr 04/13/24 09:00 0.9 % Sodium Chloride IV 04/14/24 08:59 PROTOCOL PRN BLOOD TRANSFUSION Lactulose 10 gm 04/11/24 01:20 04/13/24 13:16 Lactulose 20 Gm/30 Ml Udc PO 04/11/25 01:19 10 gm TID [facility] Administration Melatonin 3 mg 04/11/24 22:00 04/12/24 22:33 Melatonin 3 Mg Tablet PO 04/11/25 21:59 Not Given QHS [facility] Naloxone HCl 2 mg 04/10/24 23:15 Naloxone Hcl 2 Mg/2 Ml Syringe INHALATION 04/10/25 23:14 Q2M PRN opioid overdose Oxycodone HCl 10 mg 04/10/24 23:15 04/13/24 13:16 Oxycodone Ir 5 Mg Tablet PO 04/10/25 23:14 10 mg Q6HR PRN Administration Pain Pantoprazole Sodium 40 mg 04/11/24 09:00 04/13/24 08:18 Pantoprazole 40 Mg Tablet.Dr PO 04/11/25 08:59 40 mg BID [facility] Administration Potassium Chloride 10 meq 04/11/24 09:00 04/13/24 08:18 Potassium Chloride Er 10 Meq Capsule.Er PO 04/11/25 08:59 10 meq DAILY [facility] Administration Prochlorperazine Edisylate 5 mg 04/11/24 14:31 04/13/24 11:09 Prochlorperazine Edisylate 10 Mg/2 Ml Vial IV-PUSH 04/11/25 14:30 5 mg Q4H PRN Administration Nausea And Vomiting Sodium Chloride 0 ml 04/10/24 17:06 Sodium Chloride 0.9 % 10 Ml Syringe IV-PUSH 04/10/25 17:05 PRN PRN Flush A&P - Gastroenterology Assessment/Plan (1) 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): (2) Spontaneous bacterial peritonitis: (3) Bacteremia: (4) Immunosuppression: Plan -continue antibiotics per ID-on cefepime -monitor labs and cultures -IV albumin 25 gm q8 x 3 days-today is day 3. -supportive care per ICU PT/INR Results Results HEM.RESPTINR: PT 18.3 Seconds (9.0-12.9) H INR 1.6 CBC Results Results HEM.RESCBC: WBC 2.9 x10E3/uL (4.5-11.0) L 11/19/20 09:55 RBC 3.02 X10E6/uL (3.60-5.00) L 04/13/24 05:23 Hgb 7.7 g/dL (11.8-15.4) L 04/13/24 05:23 Hct 24.1 % (34.0-46.4) L 04/13/24 05:23 MCV 79.8 fl (80-100) L 04/13/24 05:23 MCH 25.6 pg (24.7-34.3) 04/13/24 05:23 MCHC 32.0 g/dL (32.0-35.0) 04/13/24 05:23 RDW 20.9 % (11.9-15.3) H 04/13/24 05:23 Plt Count 40 x10E3/uL (150-450) L 04/13/24 05:23 MPV 10.0 fl (6.3-10.7) 04/13/24 05:23 Neut % (Auto) 86.3 % (.) 04/13/24 05:23 Neut # (Auto) 7.4 x10E3/uL (1.8-7.7) 04/13/24 05:23 Lymph % (Auto) 4.8 % (.) 04/13/24 05:23 Hodgeman % (Auto) 8.2 % (.) 04/13/24 05:23 Eos % (Auto) 0.6 % (.) 04/13/24 05:23 Baso % (Auto) 0.1 % (.) 04/13/24 05:23 Results - Gastroenterology Labs Labs: Laboratory Results - last 24 hr 04/11/24 04/13/24 04/13/24 16:36 05:23 05:23 Corrected WBC 8.6 Uncorrected WBC Count 8.6 RBC 3.02 L Hgb 7.7 L Hct 24.1 L MCV 79.8 L MCH 25.6 MCHC 32.0 RDW 20.9 H Plt Count 40 L MPV 10.0 Neut % (Auto) 86.3 Lymph % (Auto) 4.8 Hodgeman % (Auto) 8.2 Eos % (Auto) 0.6 Baso % (Auto) 0.1 Nucleat RBC Rel Count 0.1 Neut # (Auto) 7.4 Lymph # (Auto) 0.4 L Hodgeman # (Auto) 0.7 Eos # (Auto) 0.1 Baso # (Auto) 0.0 Toxic Vacuolation Slight Dohle Bodies Moderate Platelet Estimate Decreased Plt Morphology Comment Normal RBC Morphology N/A Polychromasia Slight Hypochromasia Slight Poikilocytosis Moderate Anisocytosis Marked Microcytosis Moderate Tear Drop Cells Slight Ovalocytes Slight Crenated Cell Slight Acanthocytes (Spur) Slight PT 18.3 H INR 1.6 APTT 34.1 PHA Creatinine Clear 54.60 Sodium 137 Potassium 3.8 Chloride 109 H Carbon Dioxide 20.9 L Anion Gap 10.9 BUN 30 H Creatinine 1.00 Est GFR (CKD-EPI) > 60.0 Glucose 143 H Calcium 7.3 L Magnesium 2.1 Cancelled Total Bilirubin 2.3 H AST 26 ALT 13 Alkaline Phosphatase 72 Total Protein 4.6 L Albumin 3.2 L Globulin 1.4 Albumin/Globulin Ratio 2.3 Blood Type A Positive Antibody Screen Negative Crossmatch (AHG) See Detail Documented By: Garcia Sanchez DO 04/13/24 1450 Signed By: <Electronically signed by Garcia Sanchez DO> 04/13/24 1454 [facility] Work Phone: [phone]) 663-976806-12-2024 Progress note Author Lakeisha Miller [facility] April 13, 2024 9:20amNote Date/TimeJune 2023 9:19[place] [address] Infect. Disease Progress Note Signed Patient: Mojgan Pérez MR#: [id number] : 1955 Acct:[id number] Age/Sex: 68 / F Adm Date: 4 Loc: Room: [address] [place] [address] Type: ADM IN Attending Dr: Modesto Aquino MD Copies to: ~ Date of Service: 04/13/2024 Subjective Interval history: Patient is doing okay sitting up in a chair eating her breakfast. States she still having some abdominal pain. Afebrile overnight. Exam Physical Exam Vital Signs: Vital Signs Temp Pulse Resp BP Pulse Ox O2 Del Method O2 Flow Rate 04/13/24 08:10 76 122/56 L 04/13/24 08:00 98.1 F 73 20 115/66 98 Nasal Cannula 2 04/13/24 07:00 74 22 122/56 L 99 Nasal Cannula 2 04/13/24 06:30 98 22 04/13/24 06:00 77 22 107/60 97 Nasal Cannula 2 04/13/24 05:00 80 22 120/68 98 Nasal Cannula 2 04/13/24 04:00 78 18 88/52 L 97 Nasal Cannula 2 04/13/24 03:00 84 75/47 L 04/13/24 03:00 84 18 75/47 L 92 L Nasal Cannula 2 04/13/24 03:00 84 75/47 L 04/13/24 02:50 120 H 94/51 L 04/13/24 02:00 120 H 18 89/55 L 93 L Nasal Cannula 2 04/13/24 01:00 110 H 18 95/51 L 92 L Nasal Cannula 2 04/13/24 00:00 Nasal Cannula 2 04/13/24 00:00 Nasal Cannula 2 04/13/24 00:00 98.2 F 99 18 110/64 94 L Nasal Cannula 2 04/12/24 22:00 93 20 93/50 L 96 Nasal Cannula 2 04/12/24 21:00 92 12 96/51 L 97 Nasal Cannula 2 04/12/24 20:00 97.9 F 90 18 115/54 L 96 Nasal Cannula 2 04/12/24 19:00 98 24 117/70 96 Nasal Cannula 2 04/12/24 18:48 Nasal Cannula 2 04/12/24 18:48 91 24 04/12/24 18:00 84 19 95/53 L 97 Nasal Cannula 2 04/12/24 17:00 87 20 92/52 L 96 Nasal Cannula 2 04/12/24 16:00 97.9 F 92 18 93/54 L 96 Nasal Cannula 2 04/12/24 15:00 119 H 12 101/63 95 Nasal Cannula 2 04/12/24 14:00 117 H 20 102/58 L 95 Nasal Cannula 2 04/12/24 13:29 127 H 91/63 L 04/12/24 13:29 127 H 91/63 L 04/12/24 13:00 126 H 22 86/55 L 95 Nasal Cannula 2 04/12/24 12:09 116 H 22 04/12/24 12:00 98.8 F 82 24 92/59 L 96 Nasal Cannula 2 04/12/24 11:00 82 18 80/50 L 96 Nasal Cannula 2 04/12/24 10:00 82 20 96/53 L 98 Nasal Cannula 2 Intake and Output 04/12/24 04/13/24 04/13/24 23:59 07:59 15:59 Intake Total 150 / 580 1340 / 1340 Balance 150 / 580 1340 / 1340 Intake: IV 150 / 400 1100 / 1100 Albumin Human 25% 25 gm In 100 100 / 100 100 / 100 ml @ 200 mls/hr IV Q8H [facility] Rx#: [id number] Cefepime 2Gm-*Ns* 2 gm In 50 ml 50 / 50 @ 12.5 mls/hr IV Q12H [facility] Rx#: [id number] Sodium Chloride 0.9% 1,000 ml 1 1000 / 1000 ,000 ml @ 100 mls/hr IV .Q10H [facility] Rx#:[id number] Oral 240 / 240 Other: # Unmeasured Voids 1 3 Date of Last Bowel Movement 04/11/24 Narrative: General: Alert, awake, oriented X3. Slow speech noted. Skin: No rash or lesions noted. HEENT: head atraumatic, face symmetrical. No lymphadenopathy. Pulm: Clear to auscultation bilaterally. Normal respiratory effort. No wheezing, rhonchi, or crackles noted on exam. Chest wall port on right accessed; non tender Cardio: Regular rate and rhythm Abdomen: Normal visual inspection. Soft. Bowel sounds normal. Still has tenderness with palpation. Musculoskeletal: Moves all extremities, normal strength all extremities. Neuro: Pt alert, oriented x3. CN's II-XII intact bilaterally. normal sensation. Objective Labs CBC/BMP: CBC, BMP 04/13/24 05:23 Corrected WBC 8.6 Uncorrected WBC Count 8.6 RBC 3.02 L Hgb 7.7 L Hct 24.1 L Plt Count 40 L Sodium 137 Potassium 3.8 Chloride 109 H Carbon Dioxide 20.9 L Anion Gap 10.9 BUN 30 H Creatinine 1.00 Calcium 7.3 L Labs: 04/13/24 05:23 BUN 30 H Creatinine 1.00 Microbiology Microbiology: Microbiology - Results from entire visit 04/10/24 17:20 Blood - Other Blood Culture - Preliminary Enterobacter cloacae complex 04/10/24 17:20 Blood - Other Bacterial ID (NA Multiplex Assay) - Final 04/11/24 11:45 Blood - Port Blood Culture - Preliminary No Growth 1 Day 04/11/24 10:33 Blood - Right Antecubital Blood Culture - Preliminary No Growth 1 Day 04/11/24 03:30 Ascites Fluid Aerobic Culture - Preliminary Enterobacter cloacae complex 04/11/24 03:30 Ascites Fluid Anaerobic Culture - Preliminary No Anaerobes Isolated 1 Day 04/11/24 03:30 Ascites Fluid Gram Stain - Final 04/11/24 03:36 Sputum - Expectorated Aerobic Culture - Preliminary Light Normal Respiratory Alysha 1 Day 04/11/24 03:36 Sputum - Expectorated Gram Stain - Final 04/11/24 03:55 Nasopharyngeal Respiratory Panel (PCR) - Final Allergies and Medications Allergies and Active Meds Allergies diclofenac [From Voltaren] Allergy (Unknown, Verified 04/10/24 17:08) Hives doxycycline [From Vibramycin] Allergy (Unknown, Verified 04/10/24 17:08) Hives moxifloxacin [From Avelox] Allergy (Unknown, Verified 04/10/24 17:08) Hives erythromycin base [From E-Mycin] Allergy (Verified 04/10/24 17:08) Hives latex Allergy (Verified 04/10/24 17:08) Unknown Reaction Quinolones Allergy (Verified 04/10/24 17:08) Unknown Reaction tetracycline Allergy (Verified 04/10/24 17:08) Unknown Reaction Active Medications Acyclovir (Acyclovir 400 Mg Tablet) 400 mg PO BID [facility] Last Admin: 04/13/24 08:17 Dose: 400 mg Albuterol (Albuterol Hfa 60 Puff/8 Gram Inhaler) 2 puff INHALATION Q4H PRN PRN Reason: Shortness Of Breath Stop: 04/10/25 23:14 Albuterol (Albuterol Neb 2.5 Mg/3 Ml Vial.Neb) 2.5 mg INHALATION Q6HR [facility] Stop: 04/11/25 00:00 Last Admin: 04/13/24 06:30 Dose: 2.5 mg Atorvastatin Calcium (Atorvastatin 80 Mg Tablet) 80 mg PO DAILY [facility] Stop: 04/11/25 08:59 Last Admin: 04/13/24 08:17 Dose: 80 mg Carvedilol (Carvedilol 12.5 Mg Tablet) 12.5 mg PO BID.WITH.MEALS [facility] Stop: 04/11/25 07:59 Cyanocobalamin (Cyanocobalamin 1,000 Mcg Tablet) 1,000 mcg PO DAILY [facility] Stop: 04/11/25 08:59 Last Admin: 04/13/24 08:18 Dose: 1,000 mcg Cyclobenzaprine HCl (Cyclobenzaprine 10 Mg Tablet) 10 mg PO Q8HR PRN PRN Reason: Muscle Spasm Stop: 04/12/25 13:36 Epinephrine HCl (Epinephrine/Pf 1 Mg/Ml Ampul) 0.3 mg IM ONCE PRN PRN Reason: anaphylaxis Fluticasone Propionate (Fluticasone Propionate Park 120 Park/16 Gm Bottle) 1 spray INTRANASAL DAILY PRN PRN Reason: Allergy Symptoms Stop: 04/10/25 23:14 Gabapentin (Gabapentin 400 Mg Capsule) 400 mg PO TID [facility] Stop: 04/11/25 08:59 Hydromorphone HCl (Hydromorphone 0.5 Mg/0.5 Ml Syringe) 0.5 mg IV-PUSH Q2H PRN PRN Reason: Pain Last Admin: 04/13/24 00:13 Dose: 0.5 mg Norepinephrine Bitartrate (Levophed) 16 mg in 250 mls @ 1.875 mls/hr IV .Q24H [facility]; Protocol Stop: 04/11/25 08:14 Last Titration: 04/13/24 08:10 Dose: 3 mcg/min, 2.81 mls/hr Cefepime HCl (Maxipime) 2 gm in 50 mls @ 12.5 mls/hr IV Q12H [facility] Last Admin: 04/13/24 00:12 Dose: 12.5 mls/hr Albumin Human (Albuminar-25) 25 gm in 100 mls @ 200 mls/hr IV Q8H [facility] Stop: 04/12/25 15:59 Last Admin: 04/13/24 08:17 Dose: 200 mls/hr Amiodarone HCl 450 mg/ (Dextrose) 250 mls @ 33.333 mls/hr IV .Q7H30M [facility]; Protocol Stop: 04/14/24 02:59 Last Admin: 04/13/24 03:00 Dose: 1 mg/min, 33.33 mls/hr Sodium Chloride (0.9 % Sodium Chloride) 500 mls @ 20 mls/hr IV PROTOCOL PRN PRN Reason: BLOOD TRANSFUSION Stop: 04/14/24 08:52 Sodium Chloride (0.9 % Sodium Chloride) 500 mls @ 20 mls/hr IV PROTOCOL PRN PRN Reason: BLOOD TRANSFUSION Stop: 04/14/24 08:59 Lactulose (Lactulose 20 Gm/30 Ml Udc) 10 gm PO TID [facility] Stop: 04/11/25 01:19 Last Admin: 04/13/24 08:17 Dose: 10 gm Melatonin (Melatonin 3 Mg Tablet) 3 mg PO QHS [facility] Stop: 04/11/25 21:59 Last Admin: 04/12/24 22:33 Dose: Not Given Naloxone HCl (Naloxone Hcl 2 Mg/2 Ml Syringe) 2 mg INHALATION Q2M PRN PRN Reason: opioid overdose Stop: 04/10/25 23:14 Oxycodone HCl (Oxycodone Ir 5 Mg Tablet) 10 mg PO Q6HR PRN PRN Reason: Pain Stop: 04/10/25 23:14 Last Admin: 04/12/24 20:04 Dose: 10 mg Pantoprazole Sodium (Pantoprazole 40 Mg Tablet.Dr) 40 mg PO BID [facility] Stop: 04/11/25 08:59 Last Admin: 04/13/24 08:18 Dose: 40 mg Potassium Chloride (Potassium Chloride Er 10 Meq Capsule.Er) 10 meq PO DAILY [facility] Stop: 04/11/25 08:59 Last Admin: 04/13/24 08:18 Dose: 10 meq Prochlorperazine Edisylate (Prochlorperazine Edisylate 10 Mg/2 Ml Vial) 5 mg IV- PUSH Q4H PRN PRN Reason: Nausea And Vomiting Stop: 04/11/25 14:30 Last Admin: 04/12/24 12:28 Dose: 5 mg Sodium Chloride (Sodium Chloride 0.9 % 10 Ml Syringe) 0 ml IV-PUSH PRN PRN PRN Reason: Flush Stop: 04/10/25 17:05 A&P - Infectious Disease Assessment/Plan (1) Acute alteration in mental status: (2) Bacteremia: (3) Spontaneous bacterial peritonitis: Plan Ascitic fluid culture does match blood culture. Follow-up blood cultures at this time remain negative. Continuing cefepime for peritonitis. Planning 2-3 weeks of treatment. Documented By: Lakeisha Miller MD 04/13/24914 Signed By: <Electronically signed by MD Lakeisha Miller> 04/13/24919 [facility] Work Phone: 1(275) 402-649106-11-2024 Progress note Author Ritchie Mcmillan [facility] April 12, 2024 8:30pmNote Date/TimeJune 2023 8:54am[place] [address] Pulmonology Progress Note Signed Patient: Mojgan Pérez MR#: [id number] : 1955 Acct:[id number] Age/Sex: 68 / F Adm Date: 4 Loc: Room: [address] [place] [address] Type: ADM IN Attending Dr: Modesto Aquino MD Copies to: ~ Date of Service: 04/12/2024 Subjective Subjective Narrative: Patient is clinically stable though she remains on norepinephrine at 4 mcg/min. She has no respiratory complaints and does note that she recently was changed toBreztri for her respiratory status. Exam Physical Exam Vital Signs: Temp Pulse Resp BP Pulse Ox O2 Del Method O2 Flow Rate 97.8 F 85 18 92/52 L 96 Nasal Cannula 2 04/12/24 04:00 04/12/24 06:29 04/12/24 06:00 04/12/24 06:29 04/12/24 06:00 04/12/24 06:00 04/12/24 06:00 Const General: cooperative Nutritional Appearance: average body habitus Orientation: alert and awake HEENT Head: normal to inspection Ears: hearing grossly normal bilaterally and external ears normal Nose: external nose normal Face and sinus: normal facial exam Teeth and gingiva: edentulous Eyes Eyelids: eyelids normal Sclera: sclerae normal Neck Neck: normal visual inspection Chest Chest palpation & inspection: normal inspection of the chest Resp Effort & Inspection: normal respiratory effort Auscultation: clear to auscultation bilaterally, no rales, no rhonchi and no wheezes Cardio Rate: regular rate Rhythm: regular rhythm Heart Sounds: S1 normal, S2 normal and no murmurs GI Inspection: normal to inspection Palpation: soft and nontender General: deferred Skin General: no rashes or lesions noted (Warm and dry) Extrem General: no pedal edema Objective Intake and Output I&O - Last 24 Hours: Intake & Output 04/11/24 04/12/24 04/12/24 23:59 07:59 15:59 Intake Total 50 / 100 180 / 180 Balance 50 / 100 180 / 180 Labs 04/12/24 04:42 04/12/24 04:42 Microbiology Micro: Microbiology 3 04/10/24 17:20 Blood Culture - Preliminary Blood - Other Enterobacter cloacae complex Bacterial ID (NA Multiplex Assay) - Final 04/11/24 03:36 Gram Stain - Final Sputum - Expectorated 04/11/24 03:30 Gram Stain - Final Ascites Fluid 04/11/24 03:55 Respiratory Panel (PCR) - Final Nasopharyngeal Assessment/Plan Assessment/Plan (1) Spontaneous bacterial peritonitis: (2) Bacteremia: (3) 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): (4) Rhinovirus infection: Plan Hospital day #1 for patient with history of multiple myeloma and cirrhosis due to nonalcoholic steatohepatitis admitted with abdominal pain with concerns for spontaneous bacterial peritonitis but also with findings of Enterobacter bacteremia with patient having a chronic port. Patient remains on cefepime and remains on pressors though slightly decreased compared to yesterday. We will add scheduled short acting beta agonist and anticholinergic for her respiratory status. Continue antibiotics andmay need to consider use of midodrine. Documented By: Ritchie Mcmillan MD [id number] Signed By: <Electronically signed by MD Ritchie Mcmillan> 04/12/242029 [facility] Work Phone: 1(259) 398-582806-11-2024 Progress note Author Garcia Sanchez [facility] April 12, 2024 3:11pmNote Date/TimeJune 2023 3:05pmFI[place] [id number] Gastroenterology PN Signed Patient: Mojgan Pérez MR#: [id number] : 1955 Acct:[id number] Age/Sex: 68 / F Adm Date: 4 Loc: Room: 8Q5267-6 Type: ADM IN Attending Dr: Modesto Aquino MD Copies to: MD Garcia Amezquita, DO Modesto Aquino MD~ Date of Service: 04/12/2024 Subjective Subjective Narrative: Ms. Pérez is a 68 year old female with past medical history significant for multiple myeloma on biweekly chemo and monthly IVIG, MASH cirrhosis, COPD, diabetes mellitus, fibromyalgia, GERD who presented to the ED with altered mental status and abdominal pain. Per daughter at patient's bedside she did note that patient has been very fatigued in the last week. She also notes intermittent night sweats. Severe diffuse abdominal pain which started on the day of presentation. No fevers at home. Denies any nausea, vomiting, shortnessof breath, chest pain, palpitations, diarrhea, constipation, signs of bleeding, anorexia, abnormal weight loss. She denies any history of ascites previously. ED course, labs, imaging reviewed. Labs remarkable for sodium of 137, potassium3.4, chloride 104, CO2 22.7, BUN 14, creatinine 0.63, glucose 123, white count 2.3, hemoglobin 10.1, platelets 62, lactate 3.4, ammonia 38, T. bili of 1.9, AST37, ALT 18, alk phos of 70, UA largely unremarkable. Blood cultures sent. Imaging reviewed. Pt started empirically on antibiotics in the ED. admitted for furthermanagement. Diagnostic paracentesis done consistent with +SBP. Ptscontinued to have low grade fevers, tachycardia, hypotension despite, aggressivefluid resuscitation, IV albumin, midodrine overnight so was transferred to ICU for further management. ID following. Updated history: Patient seen and examined at the bedside. Patient went into A-fib with RVR overnight. Reports stillwith abdominal pain but slightly improved. No fevers. Denies any nausea vomiting, diarrhea, signs of bleeding. Notes passing small amount of stool only. Did receive 1 unit of blood overnight with good response in her hemoglobin. Levophed weaned down. No additional complaints otherwise. Exam Physical Exam Vital Signs: Temp Pulse Resp BP Pulse Ox O2 Del Method O2 Flow Rate 98.8 F 117 H 20 102/58 L 95 Nasal Cannula 2 04/12/24 12:00 04/12/24 14:00 04/12/24 14:00 04/12/24 14:00 04/12/24 14:00 04/12/24 14:00 04/12/24 14:00 Narrative: General appearance: Pleasant, cooperative, A&Ox3, NAD Skin: No jaundice, no rash or lesions Head: NC/AT Eyes: Anicteric, EOMI Neck: Supple, nontender Heart: normal S1 and S2 Lungs: Normal respiratory effort, no use of accessory muscles Abdomen: Soft, +distended, diffuse TTP on exam, bs present, no r/r/g Neuro: normal gait, sensation grossly intact, no focal deficits Ext: no edema or tenderness. Objective Allergies and Medications Allergies/Adverse Reactions: Allergies Allergy/AdvReac Type Severity Reaction Status Date / Time diclofenac [From Voltaren] Allergy Unknown Hives Verified 04/10/24 17:08 doxycycline [From Vibramycin] Allergy Unknown Hives Verified 04/10/24 17:08 moxifloxacin [From Avelox] Allergy Unknown Hives Verified 04/10/24 17:08 erythromycin base Allergy Hives Verified 04/10/24 17:08 [From E-Mycin] latex Allergy Unknown Verified 04/10/24 17:08 Reaction Quinolones Allergy Unknown Verified 04/10/24 17:08 Reaction tetracycline Allergy Unknown Verified 04/10/24 17:08 Reaction Active Meds: Active Medications Generic Name Dose Route Start Last Admin Trade Name Freq PRN Reason Stop Dose Admin Acyclovir 400 mg 04/11/24 09:00 04/12/24 08:44 Acyclovir 400 Mg Tablet PO 400 mg BID [facility] Administration Albuterol 2 puff 04/10/24 23:15 Albuterol Hfa 60 Puff/8 Gram Inhaler INHALATION 04/10/25 23:14 Q4H PRN Shortness Of Breath Albuterol 2.5 mg 04/11/24 00:00 04/12/24 12:09 Albuterol Neb 2.5 Mg/3 Ml Vial.Neb INHALATION 04/11/25 00:00 2.5 mg Q6HR [facility] Administration Atorvastatin Calcium 80 mg 04/11/24 09:00 04/12/24 08:44 Atorvastatin 80 Mg Tablet PO 04/11/25 08:59 80 mg DAILY [facility] Administration Carvedilol 12.5 mg 04/11/24 08:00 Carvedilol 12.5 Mg Tablet PO 04/11/25 07:59 BID.WITH.MEALS [facility] Cyanocobalamin 1,000 mcg 04/11/24 09:00 04/12/24 08:44 Cyanocobalamin 1,000 Mcg Tablet PO 04/11/25 08:59 1,000 mcg DAILY [facility] Administration Cyclobenzaprine HCl 10 mg 04/12/24 13:37 Cyclobenzaprine 10 Mg Tablet PO 04/12/25 13:36 Q8HR PRN Muscle Spasm Epinephrine HCl 0.3 mg 04/10/24 23:15 Epinephrine/Pf 1 Mg/Ml Ampul IM ONCE PRN anaphylaxis Fluticasone Propionate 1 spray 04/10/24 23:15 Fluticasone Propionate Park 120 Park/16 Gm Bottle INTRANASAL 04/10/25 23:14 DAILY PRN Allergy Symptoms Gabapentin 400 mg 04/11/24 09:00 Gabapentin 400 Mg Capsule PO 04/11/25 08:59 TID [facility] Hydromorphone HCl 0.5 mg 04/11/24 03:54 04/11/24 12:41 Hydromorphone 0.5 Mg/0.5 Ml Syringe IV-PUSH 0.5 mg Q2H PRN Administration Pain Norepinephrine Bitartrate 16 mg in 250 mls @ 1.875 mls/hr 04/11/24 08:15 04/12/24 13:29 Levophed IV 04/11/25 08:14 2 mcg/min .Q24H [facility] 1.88 mls/hr Administration Protocol 2 MCG/MIN Sodium Chloride 500 mls @ 20 mls/hr 04/11/24 16:17 0.9 % Sodium Chloride IV 04/12/24 16:16 PROTOCOL PRN BLOOD TRANSFUSION Cefepime HCl 2 gm in 50 mls @ 12.5 mls/hr 04/12/24 13:00 04/12/24 12:28 Maxipime IV 12.5 mls/hr Q12H [facility] Administration Sodium Chloride 1,000 mls @ 100 mls/hr 04/12/24 13:15 04/12/24 14:02 0.9% Sodium Chloride 1,000 Ml IV 04/12/25 13:14 100 mls/hr .Q10H [facility] Administration Magnesium Sulfate 4 gm in 100 mls @ 25 mls/hr 04/12/24 15:00 Magnesium Sulf 4 Gm-*Swfi* IV 04/12/24 18:59 ONCE ONE Lactulose 10 gm 04/11/24 01:20 04/12/24 14:02 Lactulose 20 Gm/30 Ml Udc PO 04/11/25 01:19 10 gm TID [facility] Administration Melatonin 3 mg 04/11/24 22:00 04/11/24 21:03 Melatonin 3 Mg Tablet PO 04/11/25 21:59 3 mg QHS [facility] Administration Naloxone HCl 2 mg 04/10/24 23:15 Naloxone Hcl 2 Mg/2 Ml Syringe INHALATION 04/10/25 23:14 Q2M PRN opioid overdose Oxycodone HCl 10 mg 04/10/24 23:15 04/12/24 04:49 Oxycodone Ir 5 Mg Tablet PO 04/10/25 23:14 10 mg Q6HR PRN Administration Pain Pantoprazole Sodium 40 mg 04/11/24 09:00 04/12/24 08:44 Pantoprazole 40 Mg Tablet.Dr PO 04/11/25 08:59 40 mg BID [facility] Administration Potassium Chloride 10 meq 04/11/24 09:00 04/12/24 08:44 Potassium Chloride Er 10 Meq Capsule.Er PO 04/11/25 08:59 10 meq DAILY [facility] Administration Prochlorperazine Edisylate 5 mg 04/11/24 14:31 04/12/24 12:28 Prochlorperazine Edisylate 10 Mg/2 Ml Vial IV-PUSH 04/11/25 14:30 5 mg Q4H PRN Administration Nausea And Vomiting Sodium Chloride 0 ml 04/10/24 17:06 Sodium Chloride 0.9 % 10 Ml Syringe IV-PUSH 04/10/25 17:05 PRN PRN Flush A&P - Gastroenterology Assessment/Plan (1) 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): (2) Spontaneous bacterial peritonitis: (3) Bacteremia: (4) Immunosuppression: Plan -continue antibiotics per ID-on cefepime -monitor labs and cultures -IV albumin 25 gm q8 x 3 days-today is day 2. -supportive care per ICU -will follow along Documented By: Garcia Sanchez DO 04/12/24 1503 Signed By: <Electronically signed by Garcia Sanchez DO> 04/12/24 1511 [facility] Work Phone: 1(619) 833-147306-11-2024 Progress note Author Modesto Aquino [facility] April 12, 2024 1:46pmNote Date/TimeJune 2023 1:36[place] [address] Hospitalist Progress Note Signed Patient: Mojgan Pérez MR#: [id number] : 1955 Acct:[id number] Age/Sex: 68 / F Adm Date: 4 Loc: Room: [address] [place] [address] Type: ADM IN Attending Dr: Modesto Aquino MD Copies to: ~ Date of Service: 04/12/2024 Subjective Subjective Narrative: Patient was seen and evaluated at bedside. Remained afebrile overnight. WBC stable/ Lactate downtrended. Pressors requirement has decreased. Pt alert, awake, oriented x 3. Out of bed to chair. deniesnausea, vomiting. She does report some r sided flank pain mostly on her back started feeling it after she woke up this morning improved with pain meds. Noted to develop Afib in the afternoon. Pt withpoor oral intake and decreased urine output. Will add IV fluids. Exam Physical Exam Vital Signs: Temp Pulse Resp BP Pulse Ox O2 Del Method O2 Flow Rate 98.1 F 127 H 22 91/63 L 98 Nasal Cannula 2 04/12/24 08:00 04/12/24 13:29 04/12/24 12:09 04/12/24 13:29 04/12/24 10:00 04/12/24 10:00 04/12/24 10:00 Narrative: Const General: more comfortable but still tired appearing HEENT dry oropharyngeal mucosa without any ulcers or exudates Eyes: Conjunctiva normal Pulmonary Auscultation: diminished breath sounds on lung bases , no crackles, no wheezes R chest port Cardiovascular Rate: tachycardic Rhythm: irregular rhythm Heart Sounds: S1 normal, S2 normal and no murmurs GI Inspection: non-distended Palpation: soft, mild R sided tenderness. No rigidity or rebound. Deferred Neuro General: alert, awake and oriented x3. No obvious new focal deficit Musculoskeletal: normal range of motion Extrem General: no cyanosis, no pedal edema Psych Appearance: calm Objective Lab Results 04/12/24 04:42 04/12/24 04:42 Microbiology Results Microbiology 04/11/24 11:45 Blood - Port Blood Culture - Preliminary No Growth 1 Day 04/11/24 10:33 Blood - Right Antecubital Blood Culture - Preliminary No Growth 1 Day 04/11/24 03:30 Ascites Fluid Aerobic Culture - Preliminary Enterobacter cloacae complex 04/11/24 03:30 Ascites Fluid Anaerobic Culture - Preliminary No Anaerobes Isolated 1 Day 04/11/24 03:30 Ascites Fluid Gram Stain - Final 04/11/24 03:36 Sputum - Expectorated Aerobic Culture - Preliminary Light Normal Respiratory Alysha 1 Day 04/11/24 03:36 Sputum - Expectorated Gram Stain - Final 04/10/24 17:20 Blood - Other Blood Culture - Preliminary Enterobacter cloacae complex 04/10/24 17:20 Blood - Other Bacterial ID (NA Multiplex Assay) - Final Meds Allergies and Active Meds Allergies diclofenac [From Voltaren] Allergy (Unknown, Verified 04/10/24 17:08) Hives doxycycline [From Vibramycin] Allergy (Unknown, Verified 04/10/24 17:08) Hives moxifloxacin [From Avelox] Allergy (Unknown, Verified 04/10/24 17:08) Hives erythromycin base [From E-Mycin] Allergy (Verified 04/10/24 17:08) Hives latex Allergy (Verified 04/10/24 17:08) Unknown Reaction Quinolones Allergy (Verified 04/10/24 17:08) Unknown Reaction tetracycline Allergy (Verified 04/10/24 17:08) Unknown Reaction Active Meds: Active Medications Generic Name Dose Route Start Last Admin Trade Name Freq PRN Reason Stop Dose Admin Acyclovir 400 mg 04/11/24 09:00 04/12/24 08:44 Acyclovir 400 Mg Tablet PO 400 mg BID [facility] Administration Albuterol 2 puff 04/10/24 23:15 Albuterol Hfa 60 Puff/8 Gram Inhaler INHALATION 04/10/25 23:14 Q4H PRN Shortness Of Breath Albuterol 2.5 mg 04/11/24 00:00 04/12/24 12:09 Albuterol Neb 2.5 Mg/3 Ml Vial.Neb INHALATION 04/11/25 00:00 2.5 mg Q6HR [facility] Administration Atorvastatin Calcium 80 mg 04/11/24 09:00 04/12/24 08:44 Atorvastatin 80 Mg Tablet PO 04/11/25 08:59 80 mg DAILY [facility] Administration Carvedilol 12.5 mg 04/11/24 08:00 Carvedilol 12.5 Mg Tablet PO 04/11/25 07:59 BID.WITH.MEALS [facility] Cyanocobalamin 1,000 mcg 04/11/24 09:00 04/12/24 08:44 Cyanocobalamin 1,000 Mcg Tablet PO 04/11/25 08:59 1,000 mcg DAILY [facility] Administration Epinephrine HCl 0.3 mg 04/10/24 23:15 Epinephrine/Pf 1 Mg/Ml Ampul IM ONCE PRN anaphylaxis Fluticasone Propionate 1 spray 04/10/24 23:15 Fluticasone Propionate Park 120 Park/16 Gm Bottle INTRANASAL 04/10/25 23:14 DAILY PRN Allergy Symptoms Gabapentin 400 mg 04/11/24 09:00 Gabapentin 400 Mg Capsule PO 04/11/25 08:59 TID [facility] Hydromorphone HCl 0.5 mg 04/11/24 03:54 04/11/24 12:41 Hydromorphone 0.5 Mg/0.5 Ml Syringe IV-PUSH 0.5 mg Q2H PRN Administration Pain Norepinephrine Bitartrate 16 mg in 250 mls @ 1.875 mls/hr 04/11/24 08:15 04/12/24 13:29 Levophed IV 04/11/25 08:14 2 mcg/min .Q24H [facility] 1.88 mls/hr Administration Protocol 2 MCG/MIN Sodium Chloride 500 mls @ 20 mls/hr 04/11/24 16:17 0.9 % Sodium Chloride IV 04/12/24 16:16 PROTOCOL PRN BLOOD TRANSFUSION Cefepime HCl 2 gm in 50 mls @ 12.5 mls/hr 04/12/24 13:00 04/12/24 12:28 Maxipime IV 12.5 mls/hr Q12H [facility] Administration Sodium Chloride 1,000 mls @ 100 mls/hr 04/12/24 13:15 0.9% Sodium Chloride 1,000 Ml IV 04/12/25 13:14 .Q10H [facility] Lactulose 10 gm 04/11/24 01:20 04/12/24 08:44 Lactulose 20 Gm/30 Ml Udc PO 04/11/25 01:19 10 gm TID [facility]ACE Administration Melatonin 3 mg 04/11/24 22:00 04/11/24 21:03 Melatonin 3 Mg Tablet PO 04/11/25 21:59 3 mg QHS [facility] Administration Naloxone HCl 2 mg 04/10/24 23:15 Naloxone Hcl 2 Mg/2 Ml Syringe INHALATION 04/10/25 23:14 Q2M PRN opioid overdose Oxycodone HCl 10 mg 04/10/24 23:15 04/12/24 04:49 Oxycodone Ir 5 Mg Tablet PO 04/10/25 23:14 10 mg Q6HR PRN Administration Pain Pantoprazole Sodium 40 mg 04/11/24 09:00 04/12/24 08:44 Pantoprazole 40 Mg Tablet.Dr PO 04/11/25 08:59 40 mg BID [facility]ACE Administration Potassium Chloride 10 meq 04/11/24 09:00 04/12/24 08:44 Potassium Chloride Er 10 Meq Capsule.Er PO 04/11/25 08:59 10 meq DAILY [facility] Administration Prochlorperazine Edisylate 5 mg 04/11/24 14:31 04/12/24 12:28 Prochlorperazine Edisylate 10 Mg/2 Ml Vial IV-PUSH 04/11/25 14:30 5 mg Q4H PRN Administration Nausea And Vomiting Sodium Chloride 0 ml 04/10/24 17:06 Sodium Chloride 0.9 % 10 Ml Syringe IV-PUSH 04/10/25 17:05 PRN PRN Flush A&P - Hospitalist Assessment/Plan (1) Acute metabolic encephalopathy: (2) Septic shock: (3) Spontaneous bacterial peritonitis: (4) Bacteremia: (5) Acute alteration in mental status: (6) DM2 (diabetes mellitus, type 2): (7) COPD (chronic obstructive pulmonary disease): (8) 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 Given IV albumin. -Continue AB to IV Cefepime dosing per pharmacy -Continue Levophed to achieve MAP >65. Titrate as needed. -ID consulted. Input appreciated. Repeat blood cultures negative at 1 day. Likely bacteremia due toSBP -Pulmonary consulted for CC management. Input appreciated. -GI consulted. Input appreciated. -Continue supportive care Chemo related Pancytopenia 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- with moderate ascites Anasarca Multiple myeloma -H/H stable so far. WBC stable. PLT count stable. No signs of bleeding so far. Acute kidney injury in the setting of sepsis -Cr up to 1.38. baseline normal -Will try to keep appropriate fluid balance with IV fluids and diuretics, treating underlying sepsis -Hold ACEI -Monitor kidney function New Afib -Will provide IV hydration. Continue to treat sepsis -Likely driven by sepsis and possibly volume depletion -Optimize electrolytes -Rate control as needed -Cardiac monitoring -If remains in afib with consult cardio DVT ppx: SCDs, avoiding AP/AC due to thrombocytopenia and risk of bleed Diet: as directed Discussed with pt at bedside, all questions answered. Documented By: Modesto Aquino MD 04/12/24 13 35 Signed By: <Electronically signed by Modesto Aquino MD> 04/12/24 [facility] Work Phone: 1([phone]) 164-482406-11-2024 Progress note Author Lakeisha Miller [facility] April 12, 2024 10:08amNote Date/TimeJune 2023 9:39[place] [address] Infect. Disease Progress Note Signed Patient: Mojgan Pérez MR#: [id number] : 1955 Acct:[id number] Age/Sex: 68 / F Adm Date: 4 Loc: Room: 2H5242-2 Type: ADM IN Attending Dr: Modesto Aquino MD Copies to: ~ Date of Service: 04/12/2024 Subjective Interval history: Ms. Pérez is a 68 year old female with a PMH of multiple myeloma on biweekly chemo and monthly IVIG, immunosuppressed, KAPADIA in cirrhosis, chronic thrombocytopenia, diabetes type 2, and COPD admitted for AMS and diffuse abdominal pain. Infectious disease consulted for bacteremia and SBP. Patient wasseen and examined at bedside today. Patient reports improvement in the abdominalpain. She states that she woke up last night with some abdominal tenderness but it resolved by this morning. She does report that she continues to have a cough today. Patient denies any fever, chills, N/V, chest pain, dys uria, lightheadedness, or dizziness. Denies any BM today. Patient is hypotensive at 92/52, otherwise vitals are stable at the time of exam. Patient is afebrile. Continues on Cefepime. Pending repeat blood cultures. Culture of ascites fluid positive for gram negative bacilli. WBC at 9.7 today. Exam Physical Exam Vital Signs: Temp Pulse Resp BP Pulse Ox O2 Del Method O2 Flow Rate 97.8 F 85 18 92/52 L 96 Nasal Cannula 2 04/12/24 04:00 04/12/24 06:29 04/12/24 06:00 04/12/24 06:29 04/12/24 06:00 04/12/24 06:00 04/12/24 06:00 Narrative: General: Alert, awake, oriented X3. Slow speech noted. Skin: No rash or lesions noted. HEENT: head atraumatic, face symmetrical. No lymphadenopathy. Pulm: Clear to auscultation bilaterally. Normal respiratory effort. No wheezing, rhonchi, or crackles noted on exam. Cardio: Regular rate and rhythm Abdomen: Normal visual inspection. Soft. Bowel sounds normal. Mild tenderness to light touch diffusely across the abdomen. Musculoskeletal: Moves all extremities, normal strength all extremities. Neuro: Pt alert, oriented x3. CN's II-XII intact bilaterally. normal sensation. Objective Labs CBC/BMP: CBC, BMP 04/12/24 04:42 Corrected WBC 9.7 Uncorrected WBC Count 9.7 RBC 3.35 L Hgb 8.6 L Hct 26.6 L Plt Count 52 L Sodium 134 L Potassium 3.4 L Chloride 105 Carbon Dioxide 21.5 Anion Gap 10.9 BUN 28 H Creatinine 1.38 H Calcium 7.3 L Labs: 04/12/24 04:42 BUN 28 H Creatinine 1.38 H Microbiology Microbiology: Microbiology - Results from entire visit 04/11/24 03:30 Ascites Fluid Aerobic Culture - Preliminary Gram Negative Bacilli 04/11/24 03:30 Ascites Fluid Anaerobic Culture - Preliminary No Anaerobes Isolated 1 Day 04/11/24 03:30 Ascites Fluid Gram Stain - Final 04/11/24 03:36 Sputum - Expectorated Aerobic Culture - Preliminary Light Normal Respiratory Alysha 1 Day 04/11/24 03:36 Sputum - Expectorated Gram Stain - Final 04/10/24 17:20 Blood - Other Blood Culture - Preliminary Enterobacter cloacae complex 04/10/24 17:20 Blood - Other Bacterial ID (NA Multiplex Assay) - Final 04/11/24 03:55 Nasopharyngeal Respiratory Panel (PCR) - Final Allergies and Medications Allergies and Active Meds Allergies diclofenac [From Voltaren] Allergy (Unknown, Verified 04/10/24 17:08) Hives doxycycline [From Vibramycin] Allergy (Unknown, Verified 04/10/24 17:08) Hives moxifloxacin [From Avelox] Allergy (Unknown, Verified 04/10/24 17:08) Hives erythromycin base [From E-Mycin] Allergy (Verified 04/10/24 17:08) Hives latex Allergy (Verified 04/10/24 17:08) Unknown Reaction Quinolones Allergy (Verified 04/10/24 17:08) Unknown Reaction tetracycline Allergy (Verified 04/10/24 17:08) Unknown Reaction Active Medications Acyclovir (Acyclovir 400 Mg Tablet) 400 mg PO BID [facility] Last Admin: 04/12/24 08:44 Dose: 400 mg Albuterol (Albuterol Hfa 60 Puff/8 Gram Inhaler) 2 puff INHALATION Q4H PRN PRN Reason: Shortness Of Breath Stop: 04/10/25 23:14 Albuterol (Albuterol Neb 2.5 Mg/3 Ml Vial.Neb) 2.5 mg INHALATION Q6HR [facility] Stop: 04/11/25 00:00 Last Admin: 04/12/24 05:24 Dose: Not Given Atorvastatin Calcium (Atorvastatin 80 Mg Tablet) 80 mg PO DAILY [facility] Stop: 04/11/25 08:59 Last Admin: 04/12/24 08:44 Dose: 80 mg Carvedilol (Carvedilol 12.5 Mg Tablet) 12.5 mg PO BID.WITH.MEALS [facility] Stop: 04/11/25 07:59 Cyanocobalamin (Cyanocobalamin 1,000 Mcg Tablet) 1,000 mcg PO DAILY [facility] Stop: 04/11/25 08:59 Last Admin: 04/12/24 08:44 Dose: 1,000 mcg Epinephrine HCl (Epinephrine/Pf 1 Mg/Ml Ampul) 0.3 mg IM ONCE PRN PRN Reason: anaphylaxis Fluticasone Propionate (Fluticasone Propionate Park 120 Park/16 Gm Bottle) 1 spray INTRANASAL DAILY PRN PRN Reason: Allergy Symptoms Stop: 04/10/25 23:14 Gabapentin (Gabapentin 400 Mg Capsule) 400 mg PO TID [facility] Stop: 04/11/25 08:59 Hydromorphone HCl (Hydromorphone 0.5 Mg/0.5 Ml Syringe) 0.5 mg IV-PUSH Q2H PRN PRN Reason: Pain Last Admin: 04/11/24 12:41 Dose: 0.5 mg Norepinephrine Bitartrate (Levophed) 16 mg in 250 mls @ 1.875 mls/hr IV .Q24H [facility]ACE; Protocol Stop: 04/11/25 08:14 Last Titration: 04/12/24 06:29 Dose: 2 mcg/min, 1.88 mls/hr Sodium Chloride (0.9 % Sodium Chloride) 500 mls @ 20 mls/hr IV PROTOCOL PRN PRN Reason: BLOOD TRANSFUSION Stop: 04/12/24 16:16 Cefepime HCl (Maxipime) 2 gm in 50 mls @ 12.5 mls/hr IV Q12H [facility] Lactulose (Lactulose 20 Gm/30 Ml Udc) 10 gm PO TID [facility] Stop: 04/11/25 01:19 Last Admin: 04/12/24 08:44 Dose: 10 gm Melatonin (Melatonin 3 Mg Tablet) 3 mg PO QHS [facility] Stop: 04/11/25 21:59 Last Admin: 04/11/24 21:03 Dose: 3 mg Naloxone HCl (Naloxone Hcl 2 Mg/2 Ml Syringe) 2 mg INHALATION Q2M PRN PRN Reason: opioid overdose Stop: 04/10/25 23:14 Oxycodone HCl (Oxycodone Ir 5 Mg Tablet) 10 mg PO Q6HR PRN PRN Reason: Pain Stop: 04/10/25 23:14 Last Admin: 04/12/24 04:49 Dose: 10 mg Pantoprazole Sodium (Pantoprazole 40 Mg Tablet.Dr) 40 mg PO BID [facility] Stop: 04/11/25 08:59 Last Admin: 04/12/24 08:44 Dose: 40 mg Potassium Chloride (Potassium Chloride Er 10 Meq Capsule.Er) 10 meq PO DAILY [facility] Stop: 04/11/25 08:59 Last Admin: 04/12/24 08:44 Dose: 10 meq Prochlorperazine Edisylate (Prochlorperazine Edisylate 10 Mg/2 Ml Vial) 5 mg IV- PUSH Q4H PRN PRN Reason: Nausea And Vomiting Stop: 04/11/25 14:30 Last Admin: 04/11/24 15:29 Dose: 5 mg Sodium Chloride (Sodium Chloride 0.9 % 10 Ml Syringe) 0 ml IV-PUSH PRN PRN PRN Reason: Flush Stop: 04/10/25 17:05 A&P - Infectious Disease Assessment/Plan (1) Acute alteration in mental status: (2) Bacteremia: (3) Spontaneous bacterial peritonitis: Plan Currently being treated with Cefepime 2gm Q12H. Patient reports improvement in the abdominal pain. She does report that she continues to have a cough today. Patient denies any fever, chills, N/V, chest pain, dysuria, lightheadedness, ordizziness. Denies any BM today. Patient is hypotensive at 92/52, otherwise vitals are stable at the time of exam. Patient is afebrile. Culture of the ascites fluidpositive for gram negative bacilli. Will wait to see if this matches her original blood culture of the Enterobacter. Pending repeat blood cultures. WBC at 9.7 today. Will continue cefepime for now. Documented By: Lakeisha Miller MD 04/12/2430 Signed By: <Electronically signed by MD Lakeisha Miller> 04/12/24 1008 <Electronically signed by MD MARISEL Hughes> 04/12/24 0939 [facility] Work Phone: 1(499) 809-509506-11-2024 Telephone encounter Note* Telephone Encounter - Ro Cruz RN - 04/12/2024 10:35 AM EDT No sooner appointments. [facility]06-11-2024 Miscellaneous Notes* Telephone Encounter - Ro Cruz RN - 04/12/2024 10:35 AM EDT No sooner appointments. * Telephone Encounter - Melisa Colvin - 04/11/2024 10:02 AM EDT Mojgan's Sister is calling Juan J Mendez MD today to reschedule patient's appointment with Dr. Mendez due to patient being in the hospital. Patient was rescheduled to July but was hoping to be seen sooner. Please advise. Patient has been identified by name and birthdate. Duration of symptoms: N/A Person calling: Self Call patient at: at home [phone] (home) [phone] (cell) Was an appointment scheduled: No Closing statement: Results or non-symptom based questions: Thank you for calling [facility], your call will be returned within the next business day. Melisa Colvin documented in this encounterReg[facility] Consult note Author Ritchie Mcmillan [facility] April 11, 2024 4:59pmNote Date/TimeJun2023 4:16pm[place] [address] Pulmonology Consult Note Signed Patient: Mojgan Pérez MR#: [id number] : 1955 Acct:[id number] Age/Sex: 68 / F Adm Date: 4 Loc: Room: 1C9785-0 Type: ADM IN Attending Dr: Modesto Aquino MD Copies to: MD Ritchie Amezquita MD Obaydah M Daromar, MD~ HPI Date/Time of Consultation: Date of Service: 04/11/2024 Time of Service: 16:10 Consulting Provider: Ritchie Mcmillan Requesting Provider: Modesto Aqiuno History of Present Illness History of present illness: Ms. Pérez is a 68 year old female seen at the request of the hospitalist servicefor critical care medicine management. Patient has a history of multiple myeloma treated with chemotherapy and intravenous immunoglobulin in addition to cirrhosis related to nonalcoholic steatohepatitis with chronic thrombocytopenia. Patient was brought to the emergency department with concerns for altered mental status and reported increased abdominal pain with patient normally on gabapentin and Percocet. Upon presentation emergency department patient was noted to have diffuse abdominal pain with radiation of theback with reported fatigue and malaise. Workup did include a paracentesis with evidence of asciteswith 5008 and 41 white blood cells with 81% neutrophils with a total protein of less than 3.0 and albumin of less than 1.5. Patient was given ceftriaxone 2 g IV daily for spontaneous bacterial peritonitis. Overnight while on the floor patient continued to have low-grade fevers with tachycardia and hypotension despite aggressive volume resuscitation with patient given IV albumin and midodrine and transferred to the ICU. Blood culture x 1 from port has revealed Enterobacter cloacae complex with ceftriaxone changed to cefepime. Note is madeof upper respiratory panel that was positive for rhinovirus/enterovirus with patient not having significant respiratory issues. Review of Systems Review of Systems All other systems reviewed & are negative unless noted below or in HPI [facility] Medical History DM2 (diabetes mellitus, type 2) Smoldering multiple myeloma (SMM) Neuropathy Hypertension Multiple myeloma Temporary low platelet count COPD (chronic obstructive pulmonary disease) PFT: 02/24/2024 -FEV1/FVC: 70% -FEV1: 87% -FVC: 95% -ZFN51-80%: 60% -Bronchodilator response: None -RV: 118% -T% -DLCO: 71% -Flow-volume loop: Mild obstruction Smoldering myeloma Fibromyalgia Neutropenia Diabetes Iron deficiency Smoldering multiple myeloma (SMM) GERD (gastroesophageal reflux disease) Aortic aneurysm monitoring Surgical History H/O knee surgery 2006 History of appendectomy H/O: hysterectomy 1994 History of cholecystectomy 1989 Family History Brother Cancer lung Hypertension COPD (chronic obstructive pulmonary disease) Alcoholic Father Cancer Legacy FamHx Problem: Diagnosed with Cancer Asthma Emphysema lung Hypertension Alcoholic Family/Other Legacy FamHx Problem: 3 brothers :2 sisters Grandparent Diabetes Legacy FamHx Relation: Maternal Grand Mother Mother Cancer colon Heart disease Hypertension Sister Cancer Legacy FamHx Problem: Diagnosed with Cancer Social History Smoking Status: Former smoker Tobacco Type: cigarettes Substance Use Type: None Substance Abuse Comment: Denies alcohol use Social History Comments: Lives with son Meds Medications and Allergies Allergies diclofenac [From Voltaren] Allergy (Unknown, Verified 04/10/24 17:08) Hives doxycycline [From Vibramycin] Allergy (Unknown, Verified 04/10/24 17:08) Hives moxifloxacin [From Avelox] Allergy (Unknown, Verified 04/10/24 17:08) Hives erythromycin base [From E-Mycin] Allergy (Verified 04/10/24 17:08) Hives latex Allergy (Verified 04/10/24 17:08) Unknown Reaction Quinolones Allergy (Verified 04/10/24 17:08) Unknown Reaction tetracycline Allergy (Verified 04/10/24 17:08) Unknown Reaction Home Medications carvedilol 12.5 mg tablet 12.5 mg PO BID 11/20/17 [History Confirmed 04/10/24] duloxetine 60 mg capsule,delayed release 60 mg PO DAILY 11/20/17 [History Confirmed 04/10/24] albuterol sulfate 90 mcg/actuation aerosol inhaler 2 puff inhalation Q4H PRN Shortness Of Breath 11/24/17 [History Confirmed 04/10/24] metformin 500 mg tablet,extended release 24 hr 500 mg PO BID 03/05/20 [History Confirmed 04/10/24] semaglutide 0.25 mg or 0.5 mg (2 mg/1.5 mL) subcutaneous pen injector (Ozempic) 1 mg subcut QWEEK 09/24/20 [History Confirmed 04/10/24] acyclovir 400 mg tablet 400 mg PO BID 90 days #180 tabs 09/24/22 [Rx Confirmed 04/10/24] atorvastatin 80 mg tablet 80 mg PO DAILY 01/28/23 [History Confirmed 04/10/24] cyanocobalamin (vitamin B-12) 1,000 mcg sublingual tablet 1,000 mcg sublingual DAILY 01/28/23 [History Confirmed 04/10/24] fluticasone propionate 50 mcg/actuation nasal spray,suspension 1 spray intranasal DAILY PRN AllergySymptoms 01/28/23 [History Confirmed 04/10/24] sulfamethoxazole 800 mg-trimethoprim 160 mg tablet 1 tab PO QMWF 90 days #36 tabs 10/21/23 [Rx Confirmed 04/10/24] potassium chloride 10 mEq capsule,extended release See Rx Instructions .Route .COMPLEX #90 caps 02/05/24 [Rx Confirmed 04/10/24] gabapentin 400 mg capsule 400 mg PO TID pain 30 days #90 caps 02/11/24 [Rx Confirmed 04/10/24] albuterol sulfate 2.5 mg/3 mL (0.083 %) solution for nebulization 2.5 mg inhalation Q6HR 03/21/24 [History Confirmed 04/10/24] melatonin 1 mg tablet 2 mg PO QHS 03/21/24 [History Confirmed 04/10/24] naloxone 4 mg/actuation nasal spray 1 spray intranasal Q2-3M PRN opioid arhbilzq64/20/24 [History Confirmed 04/10/24] sumatriptan succinate 50 mg tablet See Rx Instructions PO .COMPLEX 03/21/24 [History Confirmed 04/10/24] teclistamab-cqyv 10 mg/mL subcutaneous solution (Tecvayli) subcut 03/21/24 [History Confirmed 03/24/24] cholecalciferol (vitamin D3) 125 mcg (5,000 unit) capsule 125 mcg PO DAILY 04/10/24 [History Confirmed 04/10/24] epinephrine 0.3 mg/0.3 mL injection, auto-injector 0.3 mg IM ONCE PRN anaphylaxis 04/10/24 [HistoryConfirmed 04/10/24] lisinopril 5 mg tablet 5 mg PO DAILY 04/10/24 [History Confirmed 04/10/24] omeprazole 40 mg capsule,delayed release 40 mg PO DAILY 04/10/24 [History Confirmed 04/10/24] ondansetron HCl 8 mg tablet 8 mg PO Q8H PRN nausea and vomiting 04/10/24 [History Confirmed 04/10/24] oxycodone 10 mg tablet 10 mg PO QID PRN Pain 04/10/24 [History Confirmed 04/10/24] Exam Physical Exam Vital Signs: Temp Pulse Resp BP Pulse Ox O2 Del Method O2 Flow Rate 98.2 F 91 20 89/55 L 94 L Nasal Cannula 2 04/11/24 08:00 04/11/24 13:14 04/11/24 13:14 04/11/24 10:00 04/11/24 10:00 04/11/24 13:14 04/11/24 13:14 Const General: cooperative Nutritional Appearance: average body habitus Orientation: alert and awake HEENT Head: normal to inspection Ears: hearing grossly normal bilaterally and external ears normal Nose: external nose normal Face and sinus: normal facial exam Teeth and gingiva: edentulous Eyes Eyelids: eyelids normal Sclera: sclerae normal Neck Neck: normal visual inspection Chest Chest palpation & inspection: normal inspection of the chest Resp Effort & Inspection: normal respiratory effort Auscultation: clear to auscultation bilaterally, no rales, no rhonchi and no wheezes Cardio Rate: regular rate Rhythm: regular rhythm Heart Sounds: S1 normal, S2 normal and no murmurs GI Inspection: normal to inspection Palpation: soft and nontender General: deferred Skin General: no rashes or lesions noted (Warm and dry) Extrem General: no pedal edema Results - Pulmonology Intake and Output I&O - Last 24 Hours: Intake & Output 04/11/24 04/11/24 04/11/24 07:59 15:59 23:59 Intake Total 50 / 50 Balance 50 / 50 Weight 178 lb 12.718 oz Labs 04/11/24 08:05 04/11/24 08:05 Microbiology Micro: 04/11/24 03:36 Aerobic Culture - Pending Sputum - Expectorated Gram Stain - Final 04/11/24 11:45 Blood Culture - Pending Blood - Port 04/11/24 10:33 Blood Culture - Pending Blood - Right Antecubital 04/10/24 17:20 Blood Culture - Preliminary Blood - Other Enterobacter cloacae complex Bacterial ID (NA Multiplex Assay) - Final 04/11/24 03:30 Aerobic Culture - Pending Ascites Fluid Anaerobic Culture - Pending Gram Stain - Final 04/11/24 03:55 Respiratory Panel (PCR) - Final Nasopharyngeal Imaging and Cardiology Chest x-ray: Status: image reviewed by me Additional comments: Date of Service: 04/10/24 XR/XR chest 1V portable: ABDOMINAL PAIN Plain film chest Single view HISTORY: Body pain COMPARISON: 01/21/24 FINDINGS: SUPPORT DEVICES: None POSTSURGICAL CHANGES: Kozipe-s-Kyiv unchanged HEART: Within normal limits PULMONARY LICHA: Within normal limits MEDIASTINUM: Unremarkable LUNGS AND PLEURA: Developing basilar consolidation lung bases. Consider atelectasis/pneumonitis. BONY STRUCTURES: Intact ADDITIONAL FINDINGS None XR/XR chest 1V portable IMPRESSION: Developing bands of basilar consolidation suggesting atelectasis/pneumonitis. 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 Patient is admitted to the ICU for hypotension and remains on norepinephrine infusion. Patient has received albumin and will give 1 unit of packed red blood cells to try and improve intravascular volume in patient who is hypotensive/septic. We may ultimately need to proceed with central line if peripheral IV cannot be obtained and patient already has a port which potentially may need to be removed. Patient isalso noted to have rhinovirus but has no cough nor significant respiratory symptoms. Patient remains on cefepime with infectious disease involved. We will address IV access issues and if central line is placedcan transduce central venous pressure. Continue supportive care. Documented By: Ritchie Mcmillan MD 4 [id number] Signed By: <Electronically signed by MD Ritchie Mcmillan> 04/11/24 2363 [facility] Work Phone: 1(601) 303-627206-10-2024 Consult note Author Garcia Sanchez [facility] April 11, 2024 2:34pmNote Date/TimeJune 2023 12:49pm[place] [address] Gastroenterology Consult Note Signed Patient: Mojgan Pérez MR#: [id number] : 1955 Acct:[id number] Age/Sex: 68 / F Adm Date: 4 Loc: Room: [address] [place] [address] Type: ADM IN Attending Dr: Modesto Aquino MD Copies to: MD aGrcia Amezquita, DO Modesto Aquino MD~ HPI Data of Consult Date of Consultation: 04/11/24 Requesting Physician: Modesto Aquino MD Consult Narrative Reason for consult: History of MASH cirrhosis, SBP History of present illness: Ms. Pérez is a 68 year old female with past medical history significant for multiple myeloma on biweekly chemo and monthly IVIG, MASH cirrhosis, COPD, diabetes mellitus, fibromyalgia, GERD who presented to the ED with altered mental status and abdominal pain. Per daughter at patient's bedside she did note that patient has been very fatigued in the last week. She also notes intermittent night sweats. Severe diffuse abdominal pain which started on the day of presentation. No fevers at home. Denies any nausea, vomiting, shortnessof breath, chest pain, palpitations, diarrhea, constipation, signs of bleeding, anorexia, abnormal weight loss. She denies any history of ascites previously. ED course, labs, imaging reviewed. Labs remarkable for sodium of 137, potassium3.4, chloride 104, CO2 22.7, BUN 14, creatinine 0.63, glucose 123, white count 2.3, hemoglobin 10.1, platelets 62, lactate 3.4, ammonia 38, T. bili of 1.9, AST37, ALT 18, alk phos of 70, UA largely unremarkable. Blood cultures sent. Imaging reviewed. Pt started empirically on antibiotics in the ED. admitted for furthermanagement. Diagnostic paracentesis done consistent with +SBP. Ptscontinued to have low grade fevers, tachycardia, hypotension despite, aggressivefluid resusciation, IV albumin, midodrine overnight so was transferred to ICU for further management. ID following. cc:: CC: Modesto Aquino MD Review of Systems Review of Systems Review of systems: Pertinent positives per HPI. All others reviewed and negative. General: +fevers, chills and nightsweats. Eyes: Denies irritation, discharge. Ears/Nose/Throat: Denies earache, ear discharge, tinnitus. Cardiovascular: Denies palpitations, dyspnea on exertion. Respiratory: Denies dyspnea. +cough Gastrointestinal: As per HPI Genitourinary: Denies hematuria, discharge. Musculoskeletal: Denies joint pain, joint swelling. Skin: Denies rash, itching. Neurologic: Denies weakness, paresthesias, seizures. Endocrine: Denies polydipsia, polyphagia. Heme/Lymphatic: Denies abnormal bruising, bleeding. Allergic/Immunologic: Denies urticaria, hay fever. [facility] Medical History DM2 (diabetes mellitus, type 2) Smoldering multiple myeloma (SMM) Neuropathy Hypertension Multiple myeloma Temporary low platelet count COPD (chronic obstructive pulmonary disease) PFT: 02/24/2024 -FEV1/FVC: 70% -FEV1: 87% -FVC: 95% -IIQ05-70%: 60% -Bronchodilator response: None -RV: 118% -T% -DLCO: 71% -Flow-volume loop: Mild obstruction Smoldering myeloma Fibromyalgia Neutropenia Diabetes Iron deficiency Smoldering multiple myeloma (SMM) GERD (gastroesophageal reflux disease) Aortic aneurysm monitoring Surgical History H/O knee surgery 2006 History of appendectomy H/O: hysterectomy 1994 History of cholecystectomy 1989 Family History Brother Cancer lung Hypertension COPD (chronic obstructive pulmonary disease) Alcoholic Father Cancer Legacy FamHx Problem: Diagnosed with Cancer Asthma Emphysema lung Hypertension Alcoholic Family/Other Legacy FamHx Problem: 3 brothers :2 sisters Grandparent Diabetes Legacy FamHx Relation: Maternal Grand Mother Mother Cancer colon Heart disease Hypertension Sister Cancer Legacy FamHx Problem: Diagnosed with Cancer Social History Smoking Status: Former smoker Tobacco Type: cigarettes Substance Use Type: None Substance Abuse Comment: Denies alcohol use Social History Comments: Lives with son Meds Medications and Allergies Allergies diclofenac [From Voltaren] Allergy (Unknown, Verified 04/10/24 17:08) Hives doxycycline [From Vibramycin] Allergy (Unknown, Verified 04/10/24 17:08) Hives moxifloxacin [From Avelox] Allergy (Unknown, Verified 04/10/24 17:08) Hives erythromycin base [From E-Mycin] Allergy (Verified 04/10/24 17:08) Hives latex Allergy (Verified 04/10/24 17:08) Unknown Reaction Quinolones Allergy (Verified 04/10/24 17:08) Unknown Reaction tetracycline Allergy (Verified 04/10/24 17:08) Unknown Reaction Home Medications carvedilol 12.5 mg tablet 12.5 mg PO BID 11/20/17 [History Confirmed 04/10/24] duloxetine 60 mg capsule,delayed release 60 mg PO DAILY 11/20/17 [History Confirmed 04/10/24] albuterol sulfate 90 mcg/actuation aerosol inhaler 2 puff inhalation Q4H PRN Shortness Of Breath 11/24/17 [History Confirmed 04/10/24] metformin 500 mg tablet,extended release 24 hr 500 mg PO BID 03/05/20 [History Confirmed 04/10/24] semaglutide 0.25 mg or 0.5 mg (2 mg/1.5 mL) subcutaneous pen injector (Ozempic) 1 mg subcut QWEEK 09/24/20 [History Confirmed 04/10/24] acyclovir 400 mg tablet 400 mg PO BID 90 days #180 tabs 09/24/22 [Rx Confirmed 04/10/24] atorvastatin 80 mg tablet 80 mg PO DAILY 01/28/23 [History Confirmed 04/10/24] cyanocobalamin (vitamin B-12) 1,000 mcg sublingual tablet 1,000 mcg sublingual DAILY 01/28/23 [History Confirmed 04/10/24] fluticasone propionate 50 mcg/actuation nasal spray,suspension 1 spray intranasal DAILY PRN AllergySymptoms 01/28/23 [History Confirmed 04/10/24] sulfamethoxazole 800 mg-trimethoprim 160 mg tablet 1 tab PO QMWF 90 days #36 tabs 10/21/23 [Rx Confirmed 04/10/24] potassium chloride 10 mEq capsule,extended release See Rx Instructions .Route .COMPLEX #90 caps 02/05/24 [Rx Confirmed 04/10/24] gabapentin 400 mg capsule 400 mg PO TID pain 30 days #90 caps 02/11/24 [Rx Confirmed 04/10/24] albuterol sulfate 2.5 mg/3 mL (0.083 %) solution for nebulization 2.5 mg inhalation Q6HR 03/21/24 [History Confirmed 04/10/24] melatonin 1 mg tablet 2 mg PO QHS 03/21/24 [History Confirmed 04/10/24] naloxone 4 mg/actuation nasal spray 1 spray intranasal Q2-3M PRN opioid cvyaaaps75/20/24 [History Confirmed 04/10/24] sumatriptan succinate 50 mg tablet See Rx Instructions PO .COMPLEX 03/21/24 [History Confirmed 04/10/24] teclistamab-cqyv 10 mg/mL subcutaneous solution (Tecvayli) subcut 03/21/24 [History Confirmed 03/24/24] cholecalciferol (vitamin D3) 125 mcg (5,000 unit) capsule 125 mcg PO DAILY 04/10/24 [History Confirmed 04/10/24] epinephrine 0.3 mg/0.3 mL injection, auto-injector 0.3 mg IM ONCE PRN anaphylaxis 04/10/24 [HistoryConfirmed 04/10/24] lisinopril 5 mg tablet 5 mg PO DAILY 04/10/24 [History Confirmed 04/10/24] omeprazole 40 mg capsule,delayed release 40 mg PO DAILY 04/10/24 [History Confirmed 04/10/24] ondansetron HCl 8 mg tablet 8 mg PO Q8H PRN nausea and vomiting 04/10/24 [History Confirmed 04/10/24] oxycodone 10 mg tablet 10 mg PO QID PRN Pain 04/10/24 [History Confirmed 04/10/24] Exam Physical Exam Vital Signs: Temp Pulse Resp BP Pulse Ox O2 Del Method O2 Flow Rate 98.2 F 94 25 H 89/55 L 94 L Nasal Cannula 2 04/11/24 08:00 04/11/24 10:00 04/11/24 10:00 04/11/24 10:00 04/11/24 10:00 04/11/24 10:00 04/11/24 10:00 Narrative: General appearance: Pleasant, cooperative, A&Ox3, NAD Skin: No jaundice, no rash or lesions Head: NC/AT Eyes: Anicteric, EOMI Neck: Supple, nontender Heart: normal S1 and S2 Lungs: Normal respiratory effort, no use of accessory muscles Abdomen: Soft, +distended, diffuse TTP on exam, bs present, no r/r/g Neuro: normal gait, sensation grossly intact, no focal deficits Ext: no edema or tenderness. Results - Gastroenterology Labs Labs: Laboratory Results - last 24 hr 04/10/24 04/10/24 04/10/24 17:20 20:36 21:11 Corrected WBC 2.3 L Uncorrected WBC Count 2.3 L RBC 4.02 Hgb 10.1 L Hct 31.6 L MCV 78.5 L MCH 25.1 MCHC 32.0 RDW 20.2 H Plt Count 62 L MPV 8.8 Neut % (Auto) N/A Lymph % (Auto) N/A Hodgeman % (Auto) N/A Eos % (Auto) N/A Baso % (Auto) N/A Nucleat RBC Rel Count N/A Neut # (Auto) N/A Lymph # (Auto) N/A Hodgeman # (Auto) N/A Eos # (Auto) N/A Baso # (Auto) N/A Band Neutrophils % 9 H Lymphocytes % 10 L Monocytes % 0 L Eosinophils % 2 Segmented Neutrophils 79 H Monocyte Dist Width Test not performed Nucleated RBCs/100 WBC 2 H Toxic Vacuolation Slight Dohle Bodies Platelet Estimate Decreased Giant Platelets 4 Plt Morphology Comment Normal RBC Morphology N/A Polychromasia Slight Hypochromasia Slight Poikilocytosis Moderate Anisocytosis Moderate Microcytosis Moderate Tear Drop Cells Slight Ovalocytes Schistocytes Slight PT 16.9 H INR 1.5 APTT 110.2 H* PHA Creatinine Clear 66.46 Sodium 137 Potassium 3.4 L Chloride 104 Carbon Dioxide 22.7 Anion Gap 13.7 BUN 14 Creatinine 0.63 Est GFR (CKD-EPI) > 60.0 Glucose 123 H POC Glucose Lactic Acid 3.4 H* 3.6 H* Calcium 8.2 L Total Bilirubin 2.2 H Direct Bilirubin 0.90 H Indirect Bilirubin 1.3 AST 40 H ALT 19 Alkaline Phosphatase 126 H Ammonia 38 H Total Creatine Kinase 32 Troponin I High Sens 16.4 H Total Protein 5.4 L Albumin 3.1 L Globulin 2.3 Albumin/Globulin Ratio 1.3 Amylase 48 Lipase 31.0 Urine Color Yellow Urine Appearance Clear Urine pH 5.5 Ur Specific [place] 1.023 Urine Protein 20 H Urine Glucose (UA) Normal Urine Ketones Negative Urine Occult Blood Negative Urine Nitrite Negative Urine Bilirubin Negative Urine Urobilinogen 4 H Ur Leukocyte Esterase Negative Urine RBC 1-2 Urine WBC 1-2 Ur Squamous Epith Cells N/A Urine Bacteria Rare Hyaline Casts 0-8 Urine Mucus Rare Fluid Color Fluid Appearance Fld Supernatant Color Fluid RBC Fld Tot Nucleated Cell Fluid Neutrophils % Fluid Lymphocytes % Fluid Eosinophils Fl Monocyt/Macrophag % Fluid Total Protein Fluid Albumin COVID-19 Clin Com 04/11/24 04/11/24 04/11/24 00:37 03:30 03:55 Corrected WBC Uncorrected WBC Count RBC Hgb Hct MCV MCH MCHC RDW Plt Count MPV Neut % (Auto) Lymph % (Auto) Hodgeman % (Auto) Eos % (Auto) Baso % (Auto) Nucleat RBC Rel Count Neut # (Auto) Lymph # (Auto) Hodgeman # (Auto) Eos # (Auto) Baso # (Auto) Band Neutrophils % Lymphocytes % Monocytes % Eosinophils % Segmented Neutrophils Monocyte Dist Width Nucleated RBCs/100 WBC Toxic Vacuolation Dohle Bodies Platelet Estimate Giant Platelets Plt Morphology Comment RBC Morphology Polychromasia Hypochromasia Poikilocytosis Anisocytosis Microcytosis Tear Drop Cells Ovalocytes Schistocytes PT INR APTT PHA Creatinine Clear Sodium Potassium Chloride Carbon Dioxide Anion Gap BUN Creatinine Est GFR (CKD-EPI) Glucose POC Glucose 126 Lactic Acid Calcium Total Bilirubin Direct Bilirubin Indirect Bilirubin AST ALT Alkaline Phosphatase Ammonia Total Creatine Kinase Troponin I High Sens Total Protein Albumin Globulin Albumin/Globulin Ratio Amylase Lipase Urine Color Urine Appearance Urine pH Ur Specific [place] Urine Protein Urine Glucose (UA) Urine Ketones Urine Occult Blood Urine Nitrite Urine Bilirubin Urine Urobilinogen Ur Leukocyte Esterase Urine RBC Urine WBC Ur Squamous Epith Cells Urine Bacteria Hyaline Casts Urine Mucus Fluid Color Yellow Fluid Appearance Cloudy Fld Supernatant Color Yellow Fluid RBC 7347 Fld Tot Nucleated Cell 5841 Fluid Neutrophils % 81 Fluid Lymphocytes % 2 Fluid Eosinophils 1 Fl Monocyt/Macrophag % 16 Fluid Total Protein < 3.0 Fluid Albumin < 1.5 COVID-19 Clin Com Not detected 04/11/24 04/11/24 06:46 08:05 Corrected WBC 5.6 Uncorrected WBC Count 5.6 RBC 3.12 L Hgb 7.7 L Hct 24.6 L MCV 79.0 L MCH 24.7 MCHC 31.3 L RDW 20.0 H Plt Count 41 L D MPV 9.0 Neut % (Auto) N/A Lymph % (Auto) N/A Hodgeman % (Auto) N/A Eos % (Auto) N/A Baso % (Auto) N/A Nucleat RBC Rel Count N/A Neut # (Auto) N/A Lymph # (Auto) N/A Hodgeman # (Auto) N/A Eos # (Auto) N/A Baso # (Auto) N/A Band Neutrophils % 15 H Lymphocytes % 6 L Monocytes % 7 Eosinophils % Segmented Neutrophils 71 H Monocyte Dist Width Nucleated RBCs/100 WBC Toxic Vacuolation Slight Dohle Bodies Slight Platelet Estimate Decreased Giant Platelets Plt Morphology Comment Normal RBC Morphology N/A Polychromasia Slight Hypochromasia Slight Poikilocytosis Moderate Anisocytosis Marked Microcytosis Slight Tear Drop Cells Slight Ovalocytes Slight Schistocytes Slight PT 22.1 H INR 1.9 APTT 35.8 PHA Creatinine Clear 39.28 Sodium 134 L Potassium 3.5 Chloride 104 Carbon Dioxide 21.6 Anion Gap 11.9 BUN 19 Creatinine 1.39 H D Est GFR (CKD-EPI) 41.851 Glucose 94 POC Glucose 100 Lactic Acid 3.5 H* Calcium 7.3 L Total Bilirubin 1.9 H Direct Bilirubin Indirect Bilirubin AST 37 ALT 18 Alkaline Phosphatase 70 Ammonia Total Creatine Kinase Troponin I High Sens Total Protein 4.5 L Albumin 2.8 L Globulin 1.7 Albumin/Globulin Ratio 1.6 Amylase Lipase Urine Color Urine Appearance Urine pH Ur Specific [place] Urine Protein Urine Glucose (UA) Urine Ketones Urine Occult Blood Urine Nitrite Urine Bilirubin Urine Urobilinogen Ur Leukocyte Esterase Urine RBC Urine WBC Ur Squamous Epith Cells Urine Bacteria Hyaline Casts Urine Mucus Fluid Color Fluid Appearance Fld Supernatant Color Fluid RBC Fld Tot Nucleated Cell Fluid Neutrophils % Fluid Lymphocytes % Fluid Eosinophils Fl Monocyt/Macrophag % Fluid Total Protein Fluid Albumin COVID-19 Clin Com A&P - Gastroenterology Assessment/Plan (1) 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): (2) Spontaneous bacterial peritonitis: (3) Bacteremia: (4) Immunosuppression: Plan -continue antibiotics per ID-on cefepime -monitor labs and cultures -IV albumin 25 gm q8 x 3 days -supportive care per ICU -will follow along Documented By: Garcia Sanchez DO 04/11/24 1248 Signed By: <Electronically signed by Garcia Sanchez DO> 04/11/24 1434 [facility] Work Phone: 1(571) 694-297606-10-2024 Progress note Author Modesto Aquino [facility] April 11, 2024 12:25pmNote Date/TimeJune 2023 12:24pm[place] [address] Hospitalist Progress Note Signed Patient: Mojgan Pérez MR#: [id number] : 1955 Acct:[id number] Age/Sex: 68 / F Adm Date: 4 Loc: Room: [address] [place] [address] Type: ADM IN Attending Dr: Modesto Aquino MD Copies to: ~ Date of Service: 04/11/2024 Subjective Subjective Narrative: Patient was seen and evaluated at bedside. Had low grade fevers overnight, more hypotensive overnight and this am despite 2 L of IV fluids and IV Rocephin and midodrine dose. patient appeared ill this am. still complaining of abdominal pain. Lactic acid uptrended from initial one. Blood cx came back positive for Enterobacter. Upgraded to ICU level of care for closer monitoring and need for pressors. Exam Physical Exam Vital Signs: Temp Pulse Resp BP Pulse Ox O2 Del Method O2 Flow Rate 98.2 F 94 25 H 89/55 L 94 L Nasal Cannula 2 04/11/24 08:00 04/11/24 10:04/11/24 10:04/11/24 10:04/11/24 10:04/11/24 10:04/11/24 10:00 Narrative: Const General: ill appearing HEENT Normal oropharyngeal mucosa without any ulcers or exudates Eyes: Conjunctiva normal Pulmonary Auscultation: diminished breath sounds on lung bases , no crackles, no wheezes R chest port Cardiovascular Rate: normal rate Rhythm: regular rhythm Heart Sounds: S1 normal, S2 normal and no murmurs GI Inspection: non-distended Palpation: soft, not firm and nontender. No rigidity or rebound. Deferred Neuro General: alert, awake and oriented x3, ill appearing. No obvious new focal deficit Musculoskeletal: normal range of motion Extrem General: no cyanosis, no pedal edema Psych Appearance: ill appearing, calm Objective Lab Results 04/11/24 08:05 04/11/24 08:05 Microbiology Results Microbiology 04/10/24 17:20 Blood - Other Blood Culture - Preliminary Enterobacter cloacae complex 04/10/24 17:20 Blood - Other Bacterial ID (NA Multiplex Assay) - Final 04/11/24 03:30 Ascites Fluid Gram Stain - Final 04/11/24 03:55 Nasopharyngeal Respiratory Panel (PCR) - Final Meds Allergies and Active Meds Allergies diclofenac [From Voltaren] Allergy (Unknown, Verified 04/10/24 17:08) Hives doxycycline [From Vibramycin] Allergy (Unknown, Verified 04/10/24 17:08) Hives moxifloxacin [From Avelox] Allergy (Unknown, Verified 04/10/24 17:08) Hives erythromycin base [From E-Mycin] Allergy (Verified 04/10/24 17:08) Hives latex Allergy (Verified 04/10/24 17:08) Unknown Reaction Quinolones Allergy (Verified 04/10/24 17:08) Unknown Reaction tetracycline Allergy (Verified 04/10/24 17:08) Unknown Reaction Active Meds: Active Medications Generic Name Dose Route Start Last Admin Trade Name Freq PRN Reason Stop Dose Admin Acyclovir 400 mg 04/11/24 09:00 04/11/24 09:18 Acyclovir 400 Mg Tablet PO 400 mg BID WALLACE Administration Albuterol 2 puff 04/10/24 23:15 Albuterol Hfa 60 Puff/8 Gram Inhaler INHALATION 04/10/25 23:14 Q4H PRN Shortness Of Breath Albuterol 2.5 mg 04/11/24 00:00 04/11/24 05:25 Albuterol Neb 2.5 Mg/3 Ml Vial.Neb INHALATION 04/11/25 00:00 2.5 mg Q6HR WALLACE Administration Atorvastatin Calcium 80 mg 04/11/24 09:00 04/11/24 09:07 Atorvastatin 80 Mg Tablet PO 04/11/25 08:59 80 mg DAILY WALLACE Administration Carvedilol 12.5 mg 04/11/24 08:00 Carvedilol 12.5 Mg Tablet PO 04/11/25 07:59 BID.WITH.MEALS WALLACE Cyanocobalamin 1,000 mcg 04/11/24 09:00 04/11/24 09:06 Cyanocobalamin 1,000 Mcg Tablet PO 04/11/25 08:59 1,000 mcg DAILY WALLACE Administration Epinephrine HCl 0.3 mg 04/10/24 23:15 Epinephrine/Pf 1 Mg/Ml Ampul IM ONCE PRN anaphylaxis Fluticasone Propionate 1 spray 04/10/24 23:15 Fluticasone Propionate Park 120 Park/16 Gm Bottle INTRANASAL 04/10/25 23:14 DAILY PRN Allergy Symptoms Gabapentin 400 mg 04/11/24 09:00 Gabapentin 400 Mg Capsule PO 04/11/25 08:59 TID WALLACE Hydromorphone HCl 0.5 mg 04/11/24 03:54 04/11/24 05:11 Hydromorphone 0.5 Mg/0.5 Ml Syringe IV-PUSH 0.5 mg Q2H PRN Administration Pain Cefepime HCl 2 gm in 50 mls @ 12.5 mls/hr 04/11/24 16:00 Maxipime IV Q8H WALLACE Norepinephrine Bitartrate 16 mg in 250 mls @ 1.875 mls/hr 04/11/24 08:15 04/11/24 09:05 Levophed IV 04/11/25 08:14 10 mcg/min .Q24H WALLACE 9.38 mls/hr Administration Protocol 2 MCG/MIN Lactulose 10 gm 04/11/24 01:20 04/11/24 09:06 Lactulose 20 Gm/30 Ml Udc PO 04/11/25 01:19 10 gm TID WALLACE Administration Melatonin 3 mg 04/11/24 22:00 Melatonin 3 Mg Tablet PO 04/11/25 21:59 QHS WALLACE Naloxone HCl 2 mg 04/10/24 23:15 Naloxone Hcl 2 Mg/2 Ml Syringe INHALATION 04/10/25 23:14 Q2M PRN opioid overdose Ondansetron HCl 8 mg 04/10/24 23:15 04/11/24 09:05 Ondansetron Odt 4 Mg Tab.Rapdis PO 8 mg Q8H PRN Administration nausea and vomiting Oxycodone HCl 10 mg 04/10/24 23:15 04/11/24 09:32 Oxycodone Ir 5 Mg Tablet PO 04/10/25 23:14 10 mg Q6HR PRN Administration Pain Pantoprazole Sodium 40 mg 04/11/24 09:00 04/11/24 09:07 Pantoprazole 40 Mg Tablet.Dr PO 04/11/25 08:59 40 mg BID WALLACE Administration Potassium Chloride 10 meq 04/11/24 09:00 04/11/24 09:06 Potassium Chloride Er 10 Meq Capsule.Er PO 04/11/25 08:59 10 meq DAILY WALLACE Administration Sodium Chloride 0 ml 04/10/24 17:06 Sodium Chloride 0.9 % 10 Ml Syringe IV-PUSH 04/10/25 17:05 PRN PRN Flush A&P - Hospitalist Assessment/Plan (1) Acute metabolic encephalopathy: (2) Septic shock: (3) Spontaneous bacterial peritonitis: (4) Bacteremia: (5) Acute alteration in mental status: (6) DM2 (diabetes mellitus, type 2): (7) COPD (chronic obstructive pulmonary disease): (8) 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: (9) 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): (10) Fibromyalgia: (11) GERD (gastroesophageal reflux disease): (12) Chemotherapy-induced neutropenia: (13) Rhinovirus infection: Plan Septic shock likely secondary to SBP, concern for infected catheter (pt has chemo port on R chest) Acute metabolic encephalopathy due to sepsis Enterobacter bacteremia SBP, moderate ascites Rhinovirus positive -Low grade fevers here, leukopenia, lactic acidosis, change in mentation (which was the main reasonto come to ER), hypotension fluids unresponsive -Continue to maintain adequate IV hydration -Switched AB to IV Cefepime dosing per pharmacy -Upgraded to ICU level given developing septic shock unresponsive to fluids. Started Levophed to maintain MAP >65. -ID consulted. Input appreciated. plan to repeat blood cultures. Concern for infected port vs SBP as source of sepsis and bacteremia -Pulmonary consult for CC management -GI consult placed -Continue supportive care Chemo related Pancytopenia 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- with moderate ascites Anasarca Multiple myeloma -H/H stable so far. WBC stable. PLT count stable. No signs of bleeding so far. Acute kidney injury in the setting of sepsis -Cr up to 1.39. baseline normal -Will try to keep appropriate fluid balance with IV fluids and diuretics, treating underlying sepsis -Hold ACEI -Monitor kidney function DVT ppx: SCDs, avoiding AP/AC due to thrombocytopenia and risk of bleed Diet: as directed Discussed with pt at bedside, all questions answered. Documented By: Modesto Aquino MD 04/11/24 12 11 Signed By: <Electronically signed by Modesto Aquino MD> 04/11/24 1225 [facility] Work Phone: 1(209) 249-861806-10-2024 Consult note Author Lakeisha Miller [facility] April 11, 2024 9:53amNote Date/TimeJun2023 9:[place] [address] Infect. Disease Consult Note Signed Patient: Mojgan Pérez MR#: [id number] : 1955 Acct:[id number] Age/Sex: 68 / F Adm Date: 4 Loc: Room: [address] [place] [address] Type: ADM IN Attending Dr: Modesto Aquino MD Copies to: MD Lakeisha Amezquita MD Obaydah M Daromar, MD Rame Yousif, MD, RES~ HPI Data of Consult Consult date: 04/11/24 Requesting Physician: Modesto Aquino MD Primary Care Provider: Yinka Lopez MD Consult Narrative Reason for consult: bacteremia, SBP History of present illness: Ms. Pérez is a 68 year old female with a PMH of multiple myeloma on biweekly chemo and monthly IVIG, immunosuppressed, KAPADIA in cirrhosis, chronic thrombocytopenia, diabetes type 2, and COPD admitted for AMS and diffuse abdominal pain. Infectious disease consulted for bacteremia and SBP. At the time of presentation in the ED, she was found to be hypotensive, tachycardic andfebrile. Patient was having diffuse abdominal pain that worsened throughout the day. She was unable to recall the code to her safe with her medications and wasn't able to take her gabapentin or Percocet. WBC of 2.3, HGB 10.1, lactic acid 3.4, no electrolyte imbalances. Urinalysis unremarkable. CT abdomen revealed ascites. Patient was treated with vancomycin and ceftriaxone in the emergency room, as well as IV fluids. Aspiration of ascites fluid was collectedfor culture. Results are pending. Patient currently on ceftriaxone 2 g every 24 hours. Blood cultures were positive for enterobacter cloacae complex. Patientstarted on Cefepime as well this morning. At the time of exam, patient reports continued diffuse abdominal pain. She also reports having chills and night sweats overnight. States that these symptoms began around Thursday but worsened by Thursday. Her family reported that she was also confused, not walking straight, and not being herself. Shedenies any N/V, chest pain, dysuria, diarrhea, or constipation. She states her appetite is normal. Patient also reports having a cough for >1 week now. Pt denies any othercomplaints. Afebrile. Hypotensive but otherwise vitals are stable. Patient currently being treated with ceftriaxone and cefepime. GI consulted as well. CC: Modesto Aquino MD Review of Systems Review of Systems All other systems reviewed & are negative unless noted below or in HPI [facility] Medical History DM2 (diabetes mellitus, type 2) Smoldering multiple myeloma (SMM) Neuropathy Hypertension Multiple myeloma Temporary low platelet count COPD (chronic obstructive pulmonary disease) Smoldering myeloma Fibromyalgia Neutropenia Diabetes Iron deficiency Smoldering multiple myeloma (SMM) GERD (gastroesophageal reflux disease) Aortic aneurysm Surgical History H/O knee surgery History of appendectomy H/O: hysterectomy History of cholecystectomy Family History Brother Cancer lung Hypertension COPD (chronic obstructive pulmonary disease) Alcoholic Father Cancer Legacy FamHx Problem: Diagnosed with Cancer Asthma Emphysema lung Hypertension Alcoholic Family/Other Legacy FamHx Problem: 3 brothers :2 sisters Grandparent Diabetes Legacy FamHx Relation: Maternal Grand Mother Mother Cancer colon Heart disease Hypertension Sister Cancer Legacy FamHx Problem: Diagnosed with Cancer Social History Smoking Status: Former smoker Tobacco Type: cigarettes Substance Use Type: None Substance Abuse Comment: Denies alcohol use Social History Comments: Lives with son Allergies and Medications Allergies and Active Meds Allergies diclofenac [From Voltaren] Allergy (Unknown, Verified 04/10/24 17:08) Hives doxycycline [From Vibramycin] Allergy (Unknown, Verified 04/10/24 17:08) Hives moxifloxacin [From Avelox] Allergy (Unknown, Verified 04/10/24 17:08) Hives erythromycin base [From E-Mycin] Allergy (Verified 04/10/24 17:08) Hives latex Allergy (Verified 04/10/24 17:08) Unknown Reaction Quinolones Allergy (Verified 04/10/24 17:08) Unknown Reaction tetracycline Allergy (Verified 04/10/24 17:08) Unknown Reaction Active Medications Acyclovir (Acyclovir 400 Mg Tablet) 400 mg PO BID [facility] Albuterol (Albuterol Hfa 60 Puff/8 Gram Inhaler) 2 puff INHALATION Q4H PRN PRN Reason: Shortness Of Breath Stop: 04/10/25 23:14 Albuterol (Albuterol Neb 2.5 Mg/3 Ml Vial.Neb) 2.5 mg INHALATION Q6HR WALLACE Stop: 04/11/25 00:00 Last Admin: 04/11/24 05:25 Dose: 2.5 mg Atorvastatin Calcium (Atorvastatin 80 Mg Tablet) 80 mg PO DAILY WALLACE Stop: 04/11/25 08:59 Carvedilol (Carvedilol 12.5 Mg Tablet) 12.5 mg PO BID.WITH.MEALS WALLACE Stop: 04/11/25 07:59 Cyanocobalamin (Cyanocobalamin 1,000 Mcg Tablet) 1,000 mcg PO DAILY WALLACE Stop: 04/11/25 08:59 Epinephrine HCl (Epinephrine/Pf 1 Mg/Ml Ampul) 0.3 mg IM ONCE PRN PRN Reason: anaphylaxis Fluticasone Propionate (Fluticasone Propionate Park 120 Park/16 Gm Bottle) 1 spray INTRANASAL DAILY PRN PRN Reason: Allergy Symptoms Stop: 04/10/25 23:14 Gabapentin (Gabapentin 400 Mg Capsule) 400 mg PO TID WALLACE Stop: 04/11/25 08:59 Hydromorphone HCl (Hydromorphone 0.5 Mg/0.5 Ml Syringe) 0.5 mg IV-PUSH Q2H PRN PRN Reason: Pain Last Admin: 04/11/24 05:11 Dose: 0.5 mg Cefepime HCl (Maxipime) 2 gm in 50 mls @ 12.5 mls/hr IV Q8H WALLACE Norepinephrine Bitartrate (Levophed) 16 mg in 250 mls @ 1.875 mls/hr IV .Q24H [facility]; Protocol Stop: 04/11/25 08:14 Lactulose (Lactulose 20 Gm/30 Ml Udc) 10 gm PO TID [facility] Stop: 04/11/25 01:19 Last Admin: 04/11/24 01:48 Dose: 10 gm Melatonin (Melatonin 3 Mg Tablet) 3 mg PO QHS [facility] Stop: 04/11/25 21:59 Naloxone HCl (Naloxone Hcl 2 Mg/2 Ml Syringe) 2 mg INHALATION Q2M PRN PRN Reason: opioid overdose Stop: 04/10/25 23:14 Ondansetron HCl (Ondansetron Odt 4 Mg Tab.Rapdis) 8 mg PO Q8H PRN PRN Reason: nausea and vomiting Oxycodone HCl (Oxycodone Ir 5 Mg Tablet) 10 mg PO Q6HR PRN PRN Reason: Pain Stop: 04/10/25 23:14 Last Admin: 04/11/24 01:48 Dose: 10 mg Pantoprazole Sodium (Pantoprazole 40 Mg Tablet.Dr) 40 mg PO BID [facility] Stop: 04/11/25 08:59 Potassium Chloride (Potassium Chloride Er 10 Meq Capsule.Er) 10 meq PO DAILY [facility] Stop: 04/11/25 08:59 Sodium Chloride (Sodium Chloride 0.9 % 10 Ml Syringe) 0 ml IV-PUSH PRN PRN PRN Reason: Flush Stop: 04/10/25 17:05 Exam Physical Exam Vital Signs: Temp Pulse Resp BP Pulse Ox O2 Del Method O2 Flow Rate 98.2 F 99 24 86/52 L 96 Nasal Cannula 2 04/11/24 08:00 04/11/24 08:00 04/11/24 08:00 04/11/24 08:00 04/11/24 08:00 04/11/24 08:00 04/11/24 08:00 Narrative: General: Alert, awake, oriented X3. Slow speech noted. Skin: No rash or lesions noted. HEENT: head atraumatic, face symmetrical. No lymphadenopathy. Pulm: Clear to auscultation bilaterally. Normal respiratory effort. No wheezing, rhonchi, or crackles noted on exam. Chest wall port on right accessed; non tender Cardio: Regular rate and rhythm Abdomen: Normal visual inspection. Soft. Bowel sounds normal. Tenderness to light touch diffusely across the abdomen. Musculoskeletal: Moves all extremities, normal strength all extremities. Neuro: Pt alert, oriented x3. CN's II-XII intact bilaterally. normal sensation. Results - Infectious Disease Labs 04/11/24 08:05 04/11/24 08:05 Labs: 04/10/24 17:20: Corrected WBC 2.3 L, Uncorrected WBC Count 2.3 L, BUN 14, Creatinine 0.63 04/11/24 08:05: Corrected WBC 5.6, Uncorrected WBC Count 5.6 Laboratory Tests 04/11/24 03:30 Fluid RBC 7347 Fld Tot Nucleated Cell 5841 Fluid Neutrophils % 81 Microbiology Results Microbiology Narrative: 04/10/24 17:20 Blood Culture - Preliminary Blood - Other Enterobacter cloacae complex Bacterial ID (NA Multiplex Assay) - Final 04/11/24 03:30 Aerobic Culture - Pending Ascites Fluid Anaerobic Culture - Pending Gram Stain - Final 04/11/24 03:55 Respiratory Panel (PCR) - Respiratory (Upper) Panel, PCR Final 04/11/24-0515 Adenovirus Not Detected Coronavirus 229E Not Detected Coronavirus HKU1 Not Detected Coronavirus NL63 Not Detected Coronavirus OC43 Not Detected Coronavirus SARS-CoV-2 Not Detected Human Metapneumovirus Not Detected Human Rhino/Enterovirus Detected Influenza A Not Detected Influenza A tests for the following clinically significant subtypes: - Influenza A - Influenza A H1 - Influenza A H1 2009 - Influenza A H3 Influenza B Not Detected Parainfluenza Virus 1 Not Detected Parainfluenza Virus 2 Not Detected Parainfluenza Virus 3 Not Detected Parainfluenza Virus 4 Not Detected Resp. Syncytial Virus Not Detected Bordetella parapertussis Not Detected Bordetella pertussis-ptxP Not Detected Chlamydia pneumoniae Not Detected Mycoplasma pneumoniae Not DetectedFinal Nasopharyngeal 04/11/24 03:36 Aerobic Culture - Pending Sputum - Expectorated Gram Stain - Pending Additional Results Additional Results Comment: ABD CT: IMPRESSION: Developing moderate ascites, mesenteric edema and anasarca. Liver cirrhosis. Basilar parenchymal densities suggesting atelectasis with potential pneumonitis/infiltrate. A&P - Infectious Disease (1) Acute alteration in mental status: (2) Bacteremia: (3) Spontaneous bacterial peritonitis: (4) Rhinovirus infection: Plan 1. Altered mental status 2. Bacteremia 3. Spontaneous bacterial peritonitis vs PORT infection Patient currently being treated with cefepime. Continues to have diffuse abdominal pain. Afebrile. Patient has leukopenia and thrombocytopenia. Patienthas known multiple myeloma. Only blood culture taken was from the port and thisis the one that is positive. Source of the bacteremia could be from the port and or the GI tract i.e. peritonitis. Appropriately continuing on cefepime for now. Will repeat blood cultures from the port and if we can get a peripheral blood culture we will. Await culturefrom the peritoneal fluid however the Gramstain only has WBCs at this time. Of note her upper respiratory panel had a target positive for human rhino enterovirus. She does notreally complain of shortness of breath or respiratoryissues so not sure if this is playing a role in her current illness. She statesshe did have a cough yesterday but obviously this would not cause the abdominal pain overall. Documented By: Lakeisha Miller MD 04/11/24 0851 Signed By: <Electronically signed by MD Lakeisha Miller> 04/11/24 0953 <Electronically signed by MD MARISEL Hughes> 04/11/24 0945 [facility] Work Phone: 1(160) 123-313706-10-2024 Telephone encounter Note* Telephone Encounter - Melisa Colvin - 04/11/2024 10:02 AM EDT oMjgan's Sister is calling Juan J Mendez MD today to reschedule patient's appointment with Dr. Mendez due to patient being in the hospital. Patient was rescheduled to July but was hoping to be seen sooner. Please advise. Patient has been identified by name and birthdate. Duration of symptoms: N/A Person calling: Self Call patient at: at home [phone] (home) [phone] (cell) Was an appointment scheduled: No Closing statement: Results or non-symptom based questions: Thank you for calling [facility], your call will be returned within the next business day. Melisa Colvin [facility]06-10-2024 History and physical note Author Vicente Linton [facility] April 11, 2024 5:53amNote Date/TimeJune 2023 11:27pm[place] [address] Hospitalist H&P Signed with Addenda Patient: Mojgan Pérez MR#: [id number] : 1955 Acct:[id number] Age/Sex: 68 / F Adm Date: 4 Loc: Room: [address] [place] [address] Type: ADM IN Attending Dr: Vicente Linton DO Copies to: MD Juan J Amezquita MD, RES Vicente Linton DO~ ADDENDUM1 Please add SBP to assessment based on paracentesis results. Total nucleated [id number]. Currently on Ceftriaxone 2 g daily. Addendum Documented By: MD MARISEL Brown 04/11/24521 Addendum Signed By: <Electronically signed by MD MARISEL Brown> 04/11/24 05 <Electronically signed by Vicente Linton DO> 04/11/24 0553 HPI DATE OF EXAMINATION: 04/10/24 CHIEF COMPLAINT: Abd pain HISTORY OF PRESENT ILLNESS: Ms. Mojgan Pérez is a 68-year-old female presents to ED with acutely altered mental status improved on IVF, Rocephin. Past medical history of multiple myeloma immunosuppressed compliant with biweekly chemo and monthly IVIG in [place], KAPADIA in cirrhosis, chronic thrombocytopenia, patient examined bedsideresting uncomfortably in cart with sister and daughter present. Now alert, oriented x 4 complaining of diffuse abdominal pain, with radiation to back, chronic worsening back pain, fatigue, malaise, anorexia, increased thirst. Patient states she also has a chronic cough productive yellow scant sputum for months. Patient former smoker 20 years ago, nondrinker. Patient also has chronic hemorrhoids with occasional bright red hematochezia, last episode withinthe last 7 days. Patient is on pain meds for cancer-related pain and asks for continuation/better coverage of pain while inpatient. Appetite is Zofran dependent. PDMP reviewed patient takes oxycodone 10 mg 4 times daily, gabapentin 4 mg 3 times daily. Review of Systems Review of Systems All other systems reviewed & are negative unless noted below or in HPI Constitutional Constitutional: Reports anorexia, Denies body ache(s), Denies chills, Reports difficulty sleeping, Reports excessive sweating, Reports fatigue, Denies fever(s), Reports poor appetite, Reports lethargy, Reports malaise, Reports night sweats and Reports weakness Eyes Eyes: Denies blurry vision, Denies change in vision, Denies diplopia and Denies loss of vision ENT Ears, Nose, Mouth, and Throat: Denies disequilibrium, Denies dizziness, Denies dysphagia, Denies headache(s) and Denies vertigo Cardiovascular Cardiovascular: Denies chest pain, Denies edema, Denies leg edema, Denies leg ulcers, Denies lightheadedness, Reports pedal edema, Reports rapid heart rate and Denies syncope Respiratory Respiratory: Reports cough (Scant yellow sputum), Reports dyspnea, Denies dyspnea on exertion, Denies excessive phlegm production and Reports wheezing Gastrointestinal Gastrointestinal: Denies change in stool character, Denies dysphagia, Denies loose stools, Denies nausea, Denies odynophagia and Denies vomiting Genitourinary Genitourinary: Reports amenorrhea Musculoskeletal Musculoskeletal: Reports arthralgias, Reports back pain, Reports muscle weaknessand Reports myalgias Integumentary/Breasts Skin/Breast: Denies change in pigmentation, Denies lesions, Denies new lesions and Denies non-healing lesions Neurologic Neurologic: Denies abnormal movements, Denies abnormal speech, Denies behavioralchanges, Reports confusion, Denies dizziness, Denies localized weakness, Denies headache(s), Denies loss of vision, Reports radicular pain (Abdominal radiating to back), Denies sensory deficit and Denies vertigo Psychiatric Psychiatric: Reports confusion Endocrine Endocrine: Denies cold intolerance, Denies excessive sweating, Reports fatigue, Denies heat intolerance, Reports polydipsia, Denies polyphagia and Denies polyuria Hematologic/Lymphatic Hematologic/Lymphatic: Reports easy bleeding (Per rectum) and Reports easy bruising Allergic/Immunologic Allergic/Immunologic: Reports wheezing [facility] Medical History DM2 (diabetes mellitus, type 2) Smoldering multiple myeloma (SMM) Neuropathy Hypertension Multiple myeloma Temporary low platelet count COPD (chronic obstructive pulmonary disease) Smoldering myeloma Fibromyalgia Neutropenia Diabetes Iron deficiency Smoldering multiple myeloma (SMM) GERD (gastroesophageal reflux disease) Aortic aneurysm Surgical History H/O knee surgery History of appendectomy H/O: hysterectomy History of cholecystectomy Family History Brother Cancer lung Hypertension COPD (chronic obstructive pulmonary disease) Alcoholic Father Cancer Legacy FamHx Problem: Diagnosed with Cancer Asthma Emphysema lung Hypertension Alcoholic Family/Other Legacy FamHx Problem: 3 brothers :2 sisters Grandparent Diabetes Legacy FamHx Relation: Maternal Grand Mother Mother Cancer colon Heart disease Hypertension Sister Cancer Legacy FamHx Problem: Diagnosed with Cancer Social History Smoking Status: Former smoker Tobacco Type: cigarettes Substance Use Type: None Social History Comments: Lives with son a grandaughter Meds Medications and Allergies Allergies diclofenac [From Voltaren] Allergy (Unknown, Verified 04/10/24 17:08) Hives doxycycline [From Vibramycin] Allergy (Unknown, Verified 04/10/24 17:08) Hives moxifloxacin [From Avelox] Allergy (Unknown, Verified 04/10/24 17:08) Hives erythromycin base [From E-Mycin] Allergy (Verified 04/10/24 17:08) Hives latex Allergy (Verified 04/10/24 17:08) Unknown Reaction Quinolones Allergy (Verified 04/10/24 17:08) Unknown Reaction tetracycline Allergy (Verified 04/10/24 17:08) Unknown Reaction Home Medications carvedilol 12.5 mg tablet 12.5 mg PO BID 11/20/17 [History Confirmed 04/10/24] duloxetine 60 mg capsule,delayed release 60 mg PO DAILY 11/20/17 [History Confirmed 04/10/24] albuterol sulfate 90 mcg/actuation aerosol inhaler 2 puff inhalation Q4H PRN Shortness Of Breath 11/24/17 [History Confirmed 04/10/24] metformin 500 mg tablet,extended release 24 hr 500 mg PO BID 03/05/20 [History Confirmed 04/10/24] semaglutide 0.25 mg or 0.5 mg (2 mg/1.5 mL) subcutaneous pen injector (Ozempic) 1 mg subcut QWEEK 09/24/20 [History Confirmed 04/10/24] acyclovir 400 mg tablet 400 mg PO BID 90 days #180 tabs 09/24/22 [Rx Confirmed 04/10/24] atorvastatin 80 mg tablet 80 mg PO DAILY 01/28/23 [History Confirmed 04/10/24] cyanocobalamin (vitamin B-12) 1,000 mcg sublingual tablet 1,000 mcg sublingual DAILY 01/28/23 [History Confirmed 04/10/24] fluticasone propionate 50 mcg/actuation nasal spray,suspension 1 spray intranasal DAILY PRN AllergySymptoms 01/28/23 [History Confirmed 04/10/24] sulfamethoxazole 800 mg-trimethoprim 160 mg tablet 1 tab PO QMWF 90 days #36 tabs 10/21/23 [Rx Confirmed 04/10/24] potassium chloride 10 mEq capsule,extended release See Rx Instructions .Route .COMPLEX #90 caps 02/05/24 [Rx Confirmed 04/10/24] gabapentin 400 mg capsule 400 mg PO TID pain 30 days #90 caps 02/11/24 [Rx Confirmed 04/10/24] albuterol sulfate 2.5 mg/3 mL (0.083 %) solution for nebulization 2.5 mg inhalation Q6HR 03/21/24 [History Confirmed 04/10/24] melatonin 1 mg tablet 2 mg PO QHS 03/21/24 [History Confirmed 04/10/24] naloxone 4 mg/actuation nasal spray 1 spray intranasal Q2-3M PRN opioid blnmpfwu27/20/24 [History Confirmed 04/10/24] sumatriptan succinate 50 mg tablet See Rx Instructions PO .COMPLEX 03/21/24 [History Confirmed 04/10/24] teclistamab-cqyv 10 mg/mL subcutaneous solution (Tecvayli) subcut 03/21/24 [History Confirmed 03/24/24] cholecalciferol (vitamin D3) 125 mcg (5,000 unit) capsule 125 mcg PO DAILY 04/10/24 [History Confirmed 04/10/24] epinephrine 0.3 mg/0.3 mL injection, auto-injector 0.3 mg IM ONCE PRN anaphylaxis 04/10/24 [HistoryConfirmed 04/10/24] lisinopril 5 mg tablet 5 mg PO DAILY 04/10/24 [History Confirmed 04/10/24] omeprazole 40 mg capsule,delayed release 40 mg PO DAILY 04/10/24 [History Confirmed 04/10/24] ondansetron HCl 8 mg tablet 8 mg PO Q8H PRN nausea and vomiting 04/10/24 [History Confirmed 04/10/24] oxycodone 10 mg tablet 10 mg PO QID PRN Pain 04/10/24 [History Confirmed 04/10/24] Exam Physical Exam Vital Signs: Temp Pulse Resp BP Pulse Ox O2 Del Method O2 Flow Rate 99.4 F H 109 H 20 102/58 L 95 Nasal Cannula 2 04/10/24 20:44 04/10/24 22:18 04/10/24 22:18 04/10/24 22:18 04/10/24 22:18 04/10/24 22:18 04/10/24 22:18 Narrative: General: Awake alert, uncomfortable, ill-appearing HEENT: head atraumatic, normocephalic, moist mucous membranes, poor dentition Neck: No JVD, supple no masses, no lymphadenopathy CVS: Tachycardic in sinus rhythm, no murmurs or gallops Respiratory: Coarse sounds to auscultation bilaterally, with transmitted upper airway sounds, faintwheezing as well with good symmetric expansion GI: soft, distended, tender to light palpation with rebound, reduced bowel sounds Extremity: moves all extremities, no restrictions of movements, no calf tenderness, trace pedal edema Neuro: AOx4, CN II-VII intact. No focal deficits Skin: dry, intact no rashes or lesions Results - Hospitalist H&P Lab Results Labs: Laboratory Last Values Corrected WBC 2.3 X10E3/uL (3.8-11.6) L 04/10/24 17:20 Uncorrected WBC Count 2.3 x10E3/uL (3.8-11.6) L 04/10/24 17:20 RBC 4.02 X10E6/uL (3.60-5.00) 04/10/24 17:20 Hgb 10.1 g/dL (11.8-15.4) L 04/10/24 17:20 Hct 31.6 % (34.0-46.4) L 04/10/24 17:20 MCV 78.5 fl (80-100) L 04/10/24 17:20 MCH 25.1 pg (24.7-34.3) 04/10/24 17:20 MCHC 32.0 g/dL (32.0-35.0) 04/10/24 17:20 RDW 20.2 % (11.9-15.3) H 04/10/24 17:20 Plt Count 62 x10E3/uL (150-450) L 04/10/24 17:20 MPV 8.8 fl (6.3-10.7) 04/10/24 17:20 Neut % (Auto) N/A 04/10/24 17:20 Lymph % (Auto) N/A 04/10/24 17:20 Hodgeman % (Auto) N/A 04/10/24 17:20 Eos % (Auto) N/A 04/10/24 17:20 Baso % (Auto) N/A 04/10/24 17:20 Nucleat RBC Rel Count N/A 04/10/24 17:20 Neut # (Auto) N/A 04/10/24 17:20 Lymph # (Auto) N/A 04/10/24 17:20 Hodgeman # (Auto) N/A 04/10/24 17:20 Eos # (Auto) N/A 04/10/24 17:20 Baso # (Auto) N/A 04/10/24 17:20 Band Neutrophils % 9 % (0-5) H 04/10/24 17:20 Lymphocytes % 10 % (18-42) L 04/10/24 17:20 Monocytes % 0 % (2-11) L 04/10/24 17:20 Eosinophils % 2 % (1-3) 04/10/24 17:20 Segmented Neutrophils 79 % (50-70) H 04/10/24 17:20 Monocyte Dist Width Test not performed % (0.00-20.00) 04/10/24 17:20 Nucleated RBCs/100 WBC 2 /100 WBC (0-0) H 04/10/24 17:20 Toxic Vacuolation Slight 04/10/24 17:20 Platelet Estimate Decreased (Normal) 04/10/24 17:20 Giant Platelets 4 /100 WBC 04/10/24 17:20 Plt Morphology Comment Normal (Normal) 04/10/24 17:20 RBC Morphology N/A 04/10/24 17:20 Polychromasia Slight 04/10/24 17:20 Hypochromasia Slight 04/10/24 17:20 Poikilocytosis Moderate 04/10/24 17:20 Anisocytosis Moderate 04/10/24 17:20 Microcytosis Moderate 04/10/24 17:20 Tear Drop Cells Slight 04/10/24 17:20 Schistocytes Slight 04/10/24 17:20 PT 16.9 Seconds (9.0-12.9) H 04/10/24 17:20 INR 1.5 04/10/24 17:20 APTT 110.2 Seconds (25.1-36.5) H* 04/10/24 17:20 PHA Creatinine Clear 66.46 04/10/24 17:20 Sodium 137 mmol/L (136-145) 04/10/24 17:20 Potassium 3.4 mmol/L (3.5-5.1) L 04/10/24 17:20 Chloride 104 mmol/L (98-107) 04/10/24 17:20 Carbon Dioxide 22.7 mmol/L (21.0-31.0) 04/10/24 17:20 Anion Gap 13.7 mEq/L (6.0-15.0) 04/10/24 17:20 BUN 14 mg/dL (7-25) 04/10/24 17:20 Creatinine 0.63 mg/dL (0.60-1.20) 04/10/24 17:20 Est GFR (CKD-EPI) > 60.0 mL/Min 04/10/24 17:20 Glucose 123 mg/dL (70-100) H 04/10/24 17:20 Lactic Acid 3.6 mmol/L (0.5-2.2) H* 04/10/24 21:11 Calcium 8.2 mg/dL (8.6-10.3) L 04/10/24 17:20 Total Bilirubin 2.2 mg/dl (0.3-1.0) H 04/10/24 17:20 Direct Bilirubin 0.90 mg/dL (0.03-0.18) H 04/10/24 17:20 Indirect Bilirubin 1.3 mg/dL 04/10/24 17:20 AST 40 U/L (13-39) H 04/10/24 17:20 ALT 19 U/L (7-52) 04/10/24 17:20 Alkaline Phosphatase 126 U/L (34-104) H 04/10/24 17:20 Ammonia 38 umol/L (11-35) H 04/10/24 21:11 Total Creatine Kinase 32 U/L (30-223) 04/10/24 17:20 Troponin I High Sens 16.4 pg/mL (0.0-15.0) H 04/10/24 17:20 Total Protein 5.4 gm/dL (6.4-8.9) L 04/10/24 17:20 Albumin 3.1 gm/dL (3.5-5.7) L 04/10/24 17:20 Globulin 2.3 gm/dL 04/10/24 17:20 Albumin/Globulin Ratio 1.3 04/10/24 17:20 Amylase 48 U/L (29-103) 04/10/24 17:20 Lipase 31.0 U/L (11.0-82.0) 04/10/24 17:20 Urine Color Yellow (Yellow) 04/10/24 20:36 Urine Appearance Clear (Clear) 04/10/24 20:36 Urine pH 5.5 (5.0-9.0) 04/10/24 20:36 Ur Specific [place] 1.023 (1.001-1.030) 04/10/24 20:36 Urine Protein 20 mg/dL (Negative) H 04/10/24 20:36 Urine Glucose (UA) Normal mg/dL (Normal) 04/10/24 20:36 Urine Ketones Negative (Negative) 04/10/24 20:36 Urine Occult Blood Negative (Negative) 04/10/24 20:36 Urine Nitrite Negative (Negative) 04/10/24 20:36 Urine Bilirubin Negative (Negative) 04/10/24 20:36 Urine Urobilinogen 4 mg/dL (Normal) H 04/10/24 20:36 Ur Leukocyte Esterase Negative (Negative) 04/10/24 20:36 Urine RBC 1-2 /HPF (0-4) 04/10/24 20:36 Urine WBC 1-2 /HPF (0-4) 04/10/24 20:36 Ur Squamous Epith Cells N/A 04/10/24 20:36 Urine Bacteria Rare /HPF (None Seen) 04/10/24 20:36 Hyaline Casts 0-8 /LPF (0-8) 04/10/24 20:36 Urine Mucus Rare /LPF 04/10/24 20:36 Assessment & Plan Assessment/Plan (1) Acute alteration in mental status: (2) DM2 (diabetes mellitus, type 2): (3) COPD (chronic obstructive pulmonary disease): (4) 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 Thisis concerning given patient is immunosuppressed/neutropenic on chemotherapy. Acute sepsis cannot be ruled out at this time. Patient is also in chronic liverfailure now with ascites on CT, peritonitis may be concern as she is acutely diffusely tender. WBCs 2.3 with left shift, hemoglobin 10.1, hematocrit 31.6 APTT 110 INR 1.5 potassium 3.4, lactic acid 3.4-3.6, calcium 8.2, T. bili 2.2D bili 0.9 AST 40 ALT 19, alk phosphatase 126 ammonia 38 troponin 16.4 total protein 5.4 albumin 3.1. Noninfectious UA. Admit patient to medical floor on telemetry, oximetry, vital signs every 4 hours, Zofran pretreatment for carb consistent diet Ceftriaxone 2 g every 24 hours, status post 1gm plus 1.5 g vanco She received a 1 L bolus of NS lactate upon arrival to the floor Check CBC, CMP, recheck LA Blood, sputum cultures Respiratory panel Hold home metformin, lisinopril, Ozempic, Bactrim MWF, duloxetine given cirrhosis Continue home acyclovir, Coreg, abuterol inh/nebs Pain control per home oxycodone 10 mg every 6h as needed consider palliative consult DVT prophylaxis?SCDs Status full code I personally saw this patient on the day of the encounter, reviewed the history,performed the salazar elements of the exam, formulated the plan of care and confirmed the Resident's assessment and plan. Patient arrived to the hospital for an appeared alert and oriented however she was in mild distress with diffuseabdominal pain that radiates to her back, she did have a warm abdomen to the touch, on exam there is a positive fluid wave and horseshoe dullness. She did receive vancomycin and ceftriaxoneemergency room as mentioned above, I did perform an aspirate of her sinus fluid, I did not perform perform paracentesis. Please see procedure note. This will be sent to the lab for culture, cell darryn sis, and albumin and protein levels. She will be maintained on ceftriaxone2 g every 24 hours. Do not believe she is in liver failure but I did calculate her MELD score to be 14. Will trend daily MELDscore labs. She continues to behypotensive, will give 25 g of Albumin Tonight. Will consult gastroenterology for further assistance. - Vicente Linton DO IP vs OBS Justification Based on differential dx, clinical care plan, and risk of adverse events, if untreated, in my clinical judgement this patient requires an acute care setting as: INPATIENT because of an expectation ofan over 2 midnight stay. Estimated length of stay (# of days): 3 Documented By: Vicente Linton DO 04/10/24 2241 Signed By: <Electronically signed by Vicente Linton DO> 04/11/24 0352 <Electronically signed by MD MARISEL Brown> 04/11/24 0127 [facility] Work Phone: 1(866) 367-631306-10-2024 [facility] History of Present illness Narrative* Supa Lindquist MD PhD - 03/22/2024 1:00 PM EDT HEMATOLOGY/ONCOLOGY CLINIC NOTE HPI: Continues to do well. Cough improved with cessation of lisinopril and inhaler treatment. Oncology History and Treatment synopsis Oncology History Overview Note Referral from Dr. Marinelli at [facility]. MGUS since 2005 Followed at [facility] by Dr. Kumari, and then Dr. Cummings. 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 05/2023 Bmbx1q+, 4p-, 13q/-13, 14q- and 16q- Observation 2016->2019 Treatment 2019 Palliative XRT both hips 800 cGy 04/10/2020 Velcade dex Jennifer 07/31/2021 Radiation to soff tissue area of hip 3000 cGray 08/30/2021 Jenniefr Rev 12/2021 Not a candidate for transplant (pancytopenia/liver cirrhosis) 12/2021 Jennifer Pomalidomide ->marrow suppression 07/2022 carfilzomib cyclophosphamide -> marrow suppression 05/24 Bmbx small percentage of plasma cells; hypocellular. Since the marrow was obtained in what waspossibly radiation field this may not be entirely premium service representative. Also clonal evolution in the marrow with the most recent marrow showing additional cytogenetic abnormalities. 07/23/23 Restaging labs: free lambda light chain 35.95 mg/dL (up from 5.65 mg/dL in December 2022) and free-lambda M-spike of 0.1 g/dL Myeloma responding (lambda chains <0.17) 07/23/23 Restaging labs: free lambda light chain 35.95 mg/dL (up from 5.65 mg/dL in December 2022) and free-lambda M-spike of 0.1 g/dL Teclistamab ramp-up (08/04-08/06-08/09/23): complicated grade-I CRS (fevers) and ICANS (suzanna ICE score 8/10) C2D1 teclistamab weekly (08/17/23, 08/25/23, 09/01/23, 09/08/23). Changed threshold notification forplt <35. 09/08/23 K/L ratio 0.01; IgG 338. SPEP pending. C3D1 teclisitimab weekly beginning 09/15/23- held due to Covid. 09/08/23 SPEP -no M protein 09/29/23 K/L chain ratio unable to calculate 11/17/23 IgG 526, IgA <7, IgM <5. SPEP and K/L chain ratio pending February 2024 restart teclistamab after long interrupton for COVID February 22 - b/o excellent response - move to every other week. Multiple myeloma (Multi) 08/03/2023 Initial Diagnosis Multiple myeloma (CMS/HCC) 08/04/2023 - 09/08/2023 Chemotherapy Teclistamab ramp-up (08/04-08/06-08/09/23): complicated grade-I CRS (fevers) and ICANS (suzanna ICE score 8/10) C2D1 teclistamab weekly (08/17/23, 08/25/23, 09/01/23, 09/08/23). Changed threshold notification for plt <35. 09/08/23 K/L ratio 0.01; IgG 338. SPEP pending. C3D1 teclisitimab weekly beginning 09/15/23. (Held 09/15, 09/22 09/29 10/06 due Covid + on 09/12/23. Treated with Paxlovid in [place] Plan to reassess and proceed with C3D1 with ongoing resolution of sx. Teclistamab (Weekly), 28 Day Cycles 11/18/2023 - 03/08/2024 Chemotherapy -2nd teclistamab ramp up C1D1 started on 11/18/23; then 11/20/23 and 11/22/23. C2D1 11/27/23 C2D8 12/08/23 (delayed 10 days to resume appt on Tuesdays) C2D15 12/15/23 C2D22 and 28; C3D1 held due to Covid. C3D8 01/12/24 C3D15 01/19/24 C3D22 and D28 held due to persistent cough. C4D1 Restart. Teclistamab (Weekly), 28 Day Cycles 03/22/2024 - Chemotherapy Teclistamab (Weekly), 28 Day Cycles Multiple myeloma not having achieved remission (Multi) 10/20/2023 Initial Diagnosis Multiple myeloma not having achieved remission (CMS/HCC) PMH: Past Medical History: Diagnosis Date Aortic aneurysm (CMS-HCC) Aortic stenosis COPD (chronic obstructive pulmonary disease) (Multi) Diabetes mellitus (Multi) Fibromyalgia GERD (gastroesophageal reflux disease) HLD (hyperlipidemia) Hypertension Iron deficiency Liver disease KAPADIA (nonalcoholic steatohepatitis) Neuropathy PSH: Past Surgical History: Procedure Laterality Date APPENDECTOMY CARPAL TUNNEL RELEASE Bilateral CHOLECYSTECTOMY ELBOW SURGERY Bilateral HERNIA REPAIR HYSTERECTOMY KNEE ARTHROSCOPY W/ MENISCAL REPAIR Bilateral SH: Social History Tobacco Use Smoking status: Former Current packs/day: 0.00 Average packs/day: 3.0 packs/day for 26.7 years (80.2 ttl pk-yrs) Types: Cigarettes Start date: 11/02/1976 Quit date: 08/02/2003 Years since quittin.6 Passive exposure: Past Smokeless tobacco: Never Substance Use Topics Alcohol use: Not Currently reports no history of drug use. CURRENT MEDS: Current Outpatient Medications on File Prior to Visit Medication Sig Dispense Refill atorvastatin (Lipitor) 80 mg tablet Take 1 tablet (80 mg) by mouth once daily. wykcrrinsj-uczpcohn-cwtxplntmc (Breztri Aerosphere) 160-9-4.8 mcg/actuation HFA aerosol inhaler Inhale 2 puffs 2 times a day. carvedilol (Coreg) 12.5 mg tablet Take 1 tablet (12.5 mg) by mouth 2 times daily (morning and late afternoon). cholecalciferol (Vitamin D-3) 125 MCG (5000 UT) capsule Take 1 capsule (125 mcg) by mouth once daily. cyanocobalamin, vitamin B-12, 1,000 mcg tablet, sublingual Place 1 tablet (1,000 mcg) under the tongue once daily. EPINEPHrine 0.3 mg/0.3 mL injection syringe fluticasone (Flonase) 50 mcg/actuation nasal spray Administer 1 spray into each nostril once daily as needed for rhinitis. Shake gently. Before first use, prime pump. After use, clean tip and replacecap. gabapentin (Neurontin) 400 mg capsule TAKE 1 CAPSULE ORALLY THREE TIMES DAILY FOR PAIN FOR 30 DAYS melatonin 1 mg tablet Take 2 tablets (2 mg) by mouth once daily at bedtime. metFORMIN (Glucophage) 500 mg tablet Take 1 tablet (500 mg) by mouth 2 times daily (morning and late afternoon). naloxone (Narcan) 4 mg/0.1 mL nasal spray Administer 1 spray (4 mg) into affected nostril(s) if needed for opioid reversal. May repeat every 2-3 minutes if needed, alternating nostrils, until medicalassistance becomes available. 2 each 0 OLANZapine (ZyPREXA) 2.5 mg tablet Take 1 tablet (2.5 mg) by mouth once daily at bedtime. omeprazole (PriLOSEC) [address] capsule Take 1 capsule (40 mg) by mouth once daily. Do not crush or chew. ondansetron ODT (Zofran-ODT) 8 mg disintegrating tablet Take 1 tablet (8 mg) by mouth every 8 hoursif needed for vomiting or nausea. oxyCODONE (Roxicodone) 10 mg immediate release tablet Take 1 tablet (10 mg) by mouth 4 times a day as needed for severe pain (7 - 10). potassium chloride ER (Micro-K) 10 mEq ER capsule Take 1 capsule (10 mEq) by mouth once daily. predniSONE (Deltasone) 20 mg tablet semaglutide (Ozempic) 0.25 mg or 0.5 mg (2 mg/3 mL) pen injector Inject 0.5 mg under the skin 1 (one) time per week. On Fridays SUMAtriptan (Imitrex) 50 mg tablet Take 1 tablet (50 mg) by mouth 1 time if needed for migraine. May repeat dose once in 2 hours if no relief. Do not exceed 2 doses in 24 hours. 4 tablet 0 albuterol 90 mcg/actuation inhaler Inhale 2 puffs every 4 hours if needed for shortness of breath or wheezing. DULoxetine (Cymbalta) [address] capsule Take 1 capsule (60 mg) by mouth once daily. 30 capsule 0 lisinopril 5 mg tablet Take 1 tablet (5 mg) by mouth once daily. sulfamethoxazole-trimethoprim (Bactrim DS) 800-160 mg tablet Take 1 tablet by mouth once a day on Thursday, Thursday, and Thursday. 12 tablet 0 No current facility-administered medications on file prior to visit. PHYSICAL EXAM: BP 109/60 (BP Location: Left arm, Patient Position: Sitting, BP Cuff Size: Adult) Pulse 84 Temp36 C (96.8 F) (Skin) Resp 16 Wt 75.6 kg (166 lb 11.2 oz) SpO2 97% BMI 31.03 kg/m KPS: 80 Physical Exam Constitutional: Appearance: Normal appearance. She is normal weight. HENT: Head: Normocephalic and atraumatic. Nose: No congestion. Mouth/Throat: Mouth: Mucous membranes are dry. Pharynx: Oropharynx is clear. Eyes: Extraocular Movements: Extraocular movements intact. Conjunctiva/sclera: Conjunctivae normal. Pupils: Pupils are equal, round, and reactive to light. Cardiovascular: Rate and Rhythm: Normal rate and regular rhythm. Pulmonary: Effort: Pulmonary effort is normal. No respiratory distress. Breath sounds: Normal breath sounds. Musculoskeletal: Cervical back: Normal range of motion and neck supple. Skin: General: Skin is warm and dry. Neurological: Mental Status: She is alert. Psychiatric: Mood and Affect: Mood normal. Behavior: Behavior normal. No sinus tenderness LAB DATA: No components found for: CBC Lab Results Component Value Date WBC 2.6 (L) 03/08/2024 WBC 1.9 (L) 02/23/2024 WBC 1.9 (L) 02/16/2024 WBC 2.1 (L) 02/09/2024 WBC 3.4 (L) 01/19/2024 Lab Results Component Value Date HGB 8.1 (L) 03/08/2024 HGB 8.4 (L) 02/23/2024 HGB 8.4 (L) 02/16/2024 HGB 8.4 (L) 02/09/2024 HGB 9.4 (L) 01/19/2024 Lab Results Component Value Date PLT 39 (LL) 03/08/2024 PLT 45 (L) 02/23/2024 PLT 44 (L) 02/16/2024 PLT 43 (L) 02/09/2024 PLT 50 (L) 01/19/2024 Lab Results Component Value Date GLUCOSE 97 03/08/2024 CALCIUM 7.7 (L) 03/08/2024 NA 140 03/08/2024 K 3.9 03/08/2024 CO2 26 03/08/2024 CL 108 (H) 03/08/2024 BUN 11 03/08/2024 CREATININE 0.46 (L) 03/08/2024 Lab Results Component Value Date CREATININE 0.46 (L) 03/08/2024 CREATININE 0.50 02/23/2024 CREATININE 0.50 02/16/2024 CREATININE 0.58 12/29/2023 CREATININE 0.58 12/15/2023 Lab Results Component Value Date ALT 27 03/08/2024 AST 38 03/08/2024 ALKPHOS 98 03/08/2024 BILITOT 1.0 03/08/2024 Myeloma Labs Lab Results Component Value Date IGG 678 (L) 02/16/2024 IGG 461 (L) 12/29/2023 IGG 526 (L) 11/17/2023 IGG 406 (L) 10/20/2023 IGG 338 (L) 09/08/2023 Lab Results Component Value Date IGA <7 (L) 02/16/2024 IGA <7 (L) 12/29/2023 IGA <7 (L) 11/17/2023 IGA <7 (L) 10/20/2023 IGA <7 (L) 09/08/2023 Lab Results Component Value Date IGM <5 (L) 02/16/2024 IGM <5 (L) 12/29/2023 IGM <5 (L) 11/17/2023 IGM <5 (L) 10/20/2023 IGM 6 (L) 09/08/2023 Lab Results Component Value Date KAPPA <0.08 (L) 02/16/2024 KAPPA <0.08 (L) 12/29/2023 KAPPA <0.08 (L) 11/17/2023 KAPPA <0.08 (L) 09/08/2023 KAPPA 0.10 (L) 08/17/2023 Lab Results Component Value Date LAMBDA <0.17 (L) 02/16/2024 LAMBDA <0.17 (L) 12/29/2023 LAMBDA <0.17 (L) 11/17/2023 LAMBDA <0.17 (L) 09/08/2023 LAMBDA 6.99 (H) 08/17/2023 Lab Results Component Value Date KAP 02/16/2024 Comment: One or more analytes used in this calculation is outside of the analytical measurement range. Calculation cannot be performed. [facility] 12/29/2023 Comment: One or more analytes used in this calculation is outside of the analytical measurement range. Calculation cannot be performed. [facility] 11/17/2023 Comment: One or more analytes used in this calculation is outside of the analytical measurement range. Calculation cannot be performed. [facility] 09/08/2023 Comment: One or more analytes used in this calculation is outside of the analytical measurement range. Calculation cannot be performed. KAPLS 0.01 (L) 08/17/2023 ASSESSMENT AND PLAN 68 y/o heavily pretreated MM patient presents in follow up after several infections. Her teclistamab has been held in this context. She just finished a z pack for upper respiratory infection. We willplan to restart teclistmamb with ramp up inpatient dosing in about two weeks. We will check CBC andIgs today and give IVIG if needed. , Multiple Myeloma Multiply relapsed.. Started treatment with teclistamab on 08/03/23 Well tolerated Held for the past weeks b/o covid and subsequently sinusitis Lambda has declined to <0.17 Restarted in February 2024 Has excellent ongoing response Switch to teclistamab every other week. 03/2024 ongoing ressponse. 2. 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 3. COVID - September 24- resolved. But with multiple recurrences in late winter and spring Supportive care Acyclovir Bactrim Duration of Visit This is a Established visit. I spent 40 minutes in the care of this patient, including preparing, chart and results review, face time and charting. [email or web address] documented in this [facility] Work Phone: 1(330) 770-498304-23-2024 History of Present illness Narrative* Supa Lindquist MD PhD - 02/23/2024 9:10 AM EDT HEMATOLOGY/ONCOLOGY CLINIC NOTE HPI: Has recently restarted teclistamab after long interrruption for covid and other pneumonia. Feels well, except for persistent cough Oncology History and Treatment synopsis Oncology History Overview Note Referral from Dr. Marinelli at [facility]. MGUS since 2005 Followed at [facility] by Dr. Kumari, and [...] both hips 800 cGy 04/10/2020 Velcade dex Jennifer 07/31/2021 Radiation to soff tissue area of hip 3000 cGray 08/30/2021 Jennifer Rev 12/2021 Not a candidate for transplant (pancytopenia/liver cirrhosis) 12/2021 Jennifer Pomalidomide ->marrow suppression 07/2022 carfilzomib cyclophosphamide -> marrow suppression 05/24 Bmbx small percentage of plasma cells; hypocellular. Since the marrow was obtained in what waspossibly radiation field this may not be entirely premium service representative. Also clonal evolution in the marrow with the most recent marrow showing additional cytogenetic abnormalities. 07/23/23 Restaging labs: free lambda light chain 35.95 mg/dL (up from 5.65 mg/dL in December 2022) and free-lambda M-spike of 0.1 g/dL Myeloma responding (lambda chains <0.17) 07/23/23 Restaging labs: free lambda light chain 35.95 mg/dL (up from 5.65 mg/dL in December 2022) and free-lambda M-spike of 0.1 g/dL Teclistamab ramp-up (08/04-08/06-08/09/23): complicated grade-I CRS (fevers) and ICANS (suzanna ICE score 8/10) C2D1 teclistamab weekly (08/17/23, 08/25/23, 09/01/23, 09/08/23). Changed threshold notification forplt <35. 09/08/23 K/L ratio 0.01; IgG 338. SPEP pending. C3D1 teclisitimab weekly beginning 09/15/23- held due to Covid. 09/08/23 SPEP -no M protein 09/29/23 K/L chain ratio unable to calculate 11/17/23 IgG 526, IgA <7, IgM <5. SPEP and K/L chain ratio pending February 2024 restart teclistamab after long interrupton for COVID February 22 - b/o excellent response - move to every other week. Multiple myeloma (Multi) 08/03/2023 Initial Diagnosis Multiple myeloma (CMS/HCC) 08/04/2023 - 09/08/2023 Chemotherapy Teclistamab ramp-up (08/04-08/06-08/09/23): complicated grade-I CRS (fevers) and ICANS (suzanna ICE score 8/10) C2D1 teclistamab weekly (08/17/23, 08/25/23, 09/01/23, 09/08/23). Changed threshold notification for plt <35. 09/08/23 K/L ratio 0.01; IgG 338. SPEP pending. C3D1 teclisitimab weekly beginning 09/15/23. (Held 09/15, 09/22 09/29 10/06 due Covid + on 09/12/23. Treated with Paxlovid in [place] Plan to reassess and proceed with C3D1 with ongoing resolution of sx. Teclistamab (Weekly), 28 Day Cycles 11/18/2023 - Chemotherapy -2nd teclistamab ramp up C1D1 started on 11/18/23; then 11/20/23 and 11/22/23. C2D1 11/27/23 C2D8 12/08/23 (delayed 10 days to resume appt on Tuesdays) C2D15 12/15/23 C2D22 and 28; C3D1 held due to Covid. C3D8 01/12/24 C3D15 01/19/24 C3D22 and D28 held due to persistent cough. C4D1 Restart. Teclistamab (Weekly), 28 Day Cycles Multiple myeloma not having achieved remission (Multi) 10/20/2023 Initial Diagnosis Multiple myeloma not having achieved remission (CMS/HCC) PMH: Past Medical History: Diagnosis Date Aortic aneurysm (CMS-HCC) Aortic stenosis COPD (chronic obstructive pulmonary disease) (Multi) Diabetes mellitus (Multi) Fibromyalgia GERD (gastroesophageal reflux disease) HLD (hyperlipidemia) Hypertension Iron deficiency Liver disease KAPADIA (nonalcoholic steatohepatitis) Neuropathy PSH: Past Surgical History: Procedure Laterality Date APPENDECTOMY CARPAL TUNNEL RELEASE Bilateral CHOLECYSTECTOMY ELBOW SURGERY Bilateral HERNIA REPAIR HYSTERECTOMY KNEE ARTHROSCOPY W/ MENISCAL REPAIR Bilateral SH: Social History Tobacco Use Smoking status: Former Current packs/day: 0.00 Average packs/day: 3.0 packs/day for 26.7 years (80.2 ttl pk-yrs) Types: Cigarettes Start date: 11/02/1976 Quit date: 08/02/2003 Years since quittin.5 Passive exposure: Past Smokeless tobacco: Never Substance Use Topics Alcohol use: Not Currently reports no history of drug use. CURRENT MEDS: Current Outpatient Medications on File Prior to Visit Medication Sig Dispense Refill acyclovir (Zovirax) 400 mg tablet Take 1 tablet (400 mg) by mouth 2 times a day. 180 tablet 0 albuterol 90 mcg/actuation inhaler Inhale 2 puffs every 4 hours if needed for shortness of breath or wheezing. atorvastatin (Lipitor) 80 mg tablet Take 1 tablet (80 mg) by mouth once daily. carvedilol (Coreg) 12.5 mg tablet Take 1 tablet (12.5 mg) by mouth 2 times a day with meals. cholecalciferol (Vitamin D-3) 125 MCG (5000 UT) capsule Take 1 capsule (125 mcg) by mouth once daily. cyanocobalamin, vitamin B-12, 1,000 mcg tablet, sublingual Place 1 tablet (1,000 mcg) under the tongue once daily. EPINEPHrine 0.3 mg/0.3 mL injection syringe fluticasone (Flonase) 50 mcg/actuation nasal spray Administer 1 spray into each nostril once daily as needed for rhinitis. Shake gently. Before first use, prime pump. After use, clean tip and replacecap. gabapentin (Neurontin) 400 mg capsule TAKE 1 CAPSULE ORALLY THREE TIMES DAILY FOR PAIN FOR 30 DAYS levoFLOXacin (Levaquin) 750 mg tablet Take 1 tablet (750 mg) by mouth once daily. lisinopril 5 mg tablet Take 1 tablet (5 mg) by mouth once daily. melatonin 1 mg tablet Take 2 tablets (2 mg) by mouth once daily at bedtime. metFORMIN (Glucophage) 500 mg tablet Take 1 tablet (500 mg) by mouth 2 times a day with meals. naloxone (Narcan) 4 mg/0.1 mL nasal spray Administer 1 spray (4 mg) into affected nostril(s) if needed for opioid reversal. May repeat every 2-3 minutes if needed, alternating nostrils, until medicalassistance becomes available. 2 each 0 OLANZapine (ZyPREXA) 2.5 mg tablet Take 1 tablet (2.5 mg) by mouth once daily at bedtime. omeprazole (PriLOSEC) [address] capsule Take 1 capsule (40 mg) by mouth once daily. Do not crush or chew. ondansetron ODT (Zofran-ODT) 8 mg disintegrating tablet Take 1 tablet (8 mg) by mouth every 8 hoursif needed for vomiting or nausea. oxyCODONE (Roxicodone) 10 mg immediate release tablet Take 1 tablet (10 mg) by mouth 4 times a day as needed for severe pain (7 - 10). potassium chloride ER (Micro-K) 10 mEq ER capsule Take 1 capsule (10 mEq) by mouth once daily. predniSONE (Deltasone) 20 mg tablet semaglutide (Ozempic) 0.25 mg or 0.5 mg (2 mg/3 mL) pen injector Inject 0.5 mg under the skin 1 (one) time per week. On Fridays SUMAtriptan (Imitrex) 50 mg tablet Take 1 tablet (50 mg) by mouth 1 time if needed for migraine. May repeat dose once in 2 hours if no relief. Do not exceed 2 doses in 24 hours. 4 tablet 0 DULoxetine (Cymbalta) [address] capsule Take 1 capsule (60 mg) by mouth once daily. 30 capsule 0 [] hydrocodone-homatropine (Hycodan) 5-1.5 mg/5 mL syrup Take 5 mL by mouth every 6 hours ifneeded for cough for up to 5 days. 100 mL 0 sulfamethoxazole-trimethoprim (Bactrim DS) 800-160 mg tablet Take 1 tablet by mouth once a day on Thursday, Thursday, and Thursday. 12 tablet 0 [DISCONTINUED] gabapentin (Neurontin) 100 mg capsule Take 1-2 capsules (100-200 mg) by mouth 2 times a day. No current facility-administered medications on file prior to visit. PHYSICAL EXAM: BP 125/71 (BP Location: Left arm, Patient Position: Sitting) Pulse 90 Temp 36.5 C (97.7 F) Resp 18 Wt 77.2 kg (170 lb 3.1 oz) SpO2 99% BMI 31.68 kg/m KPS: 80 Physical Exam Constitutional: Appearance: Normal appearance. She is normal weight. HENT: Head: Normocephalic and atraumatic. Nose: No congestion. Mouth/Throat: Mouth: Mucous membranes are dry. Pharynx: Oropharynx is clear. Eyes: Extraocular Movements: Extraocular movements intact. Conjunctiva/sclera: Conjunctivae normal. Pupils: Pupils are equal, round, and reactive to light. Cardiovascular: Rate and Rhythm: Normal rate and regular rhythm. Pulmonary: Effort: Pulmonary effort is normal. No respiratory distress. Breath sounds: Normal breath sounds. Musculoskeletal: Cervical back: Normal range of motion and neck supple. Skin: General: Skin is warm and dry. Neurological: Mental Status: She is alert. Psychiatric: Mood and Affect: Mood normal. Behavior: Behavior normal. No sinus tenderness LAB DATA: No components found for: CBC Lab Results Component Value Date WBC 1.9 (L) 02/23/2024 WBC 1.9 (L) 02/16/2024 WBC 2.1 (L) 02/09/2024 WBC 3.4 (L) 01/19/2024 WBC 3.5 (L) 01/12/2024 Lab Results Component Value Date HGB 8.4 (L) 02/23/2024 HGB 8.4 (L) 02/16/2024 HGB 8.4 (L) 02/09/2024 HGB 9.4 (L) 01/19/2024 HGB 9.2 (L) 01/12/2024 Lab Results Component Value Date PLT 45 (L) 02/23/2024 PLT 44 (L) 02/16/2024 PLT 43 (L) 02/09/2024 PLT 50 (L) 01/19/2024 PLT 53 (L) 01/12/2024 Lab Results Component Value Date GLUCOSE 116 (H) 02/23/2024 CALCIUM 8.5 (L) 02/23/2024 NA 141 02/23/2024 K 3.8 02/23/2024 CO2 25 02/23/2024 CL 108 (H) 02/23/2024 BUN 11 02/23/2024 CREATININE 0.50 02/23/2024 Lab Results Component Value Date CREATININE 0.50 02/23/2024 CREATININE 0.50 02/16/2024 CREATININE 0.58 12/29/2023 CREATININE 0.58 12/15/2023 CREATININE 0.65 12/08/2023 Lab Results Component Value Date ALT 17 02/23/2024 AST 29 02/23/2024 ALKPHOS 102 02/23/2024 BILITOT 0.9 02/23/2024 Myeloma Labs Lab Results Component Value Date IGG 678 (L) 02/16/2024 IGG 461 (L) 12/29/2023 IGG 526 (L) 11/17/2023 IGG 406 (L) 10/20/2023 IGG 338 (L) 09/08/2023 Lab Results Component Value Date IGA <7 (L) 02/16/2024 IGA <7 (L) 12/29/2023 IGA <7 (L) 11/17/2023 IGA <7 (L) 10/20/2023 IGA <7 (L) 09/08/2023 Lab Results Component Value Date IGM <5 (L) 02/16/2024 IGM <5 (L) 12/29/2023 IGM <5 (L) 11/17/2023 IGM <5 (L) 10/20/2023 IGM 6 (L) 09/08/2023 Lab Results Component Value Date KAPPA <0.08 (L) 02/16/2024 KAPPA <0.08 (L) 12/29/2023 KAPPA <0.08 (L) 11/17/2023 KAPPA <0.08 (L) 09/08/2023 KAPPA 0.10 (L) 08/17/2023 Lab Results Component Value Date LAMBDA <0.17 (L) 02/16/2024 LAMBDA <0.17 (L) 12/29/2023 LAMBDA <0.17 (L) 11/17/2023 LAMBDA <0.17 (L) 09/08/2023 LAMBDA 6.99 (H) 08/17/2023 Lab Results Component Value Date KAPLS 02/16/2024 Comment: One or more analytes used in this calculation is outside of the analytical measurement range. Calculation cannot be performed. KAPLS 12/29/2023 Comment: One or more analytes used in this calculation is outside of the analytical measurement range. Calculation cannot be performed. KAPLS 11/17/2023 Comment: One or more analytes used in this calculation is outside of the analytical measurement range. Calculation cannot be performed. KAPLS 09/08/2023 Comment: One or more analytes used in this calculation is outside of the analytical measurement range. Calculation cannot be performed. KAPLS 0.01 (L) 08/17/2023 ASSESSMENT AND PLAN 68 y/o heavily pretreated MM patient presents in follow up after several infections. Her teclistamab has been held in this context. She just finished a z pack for upper respiratory infection. We willplan to restart teclistmamb with ramp up inpatient dosing in about two weeks. We will check CBC andIgs today and give IVIG if needed. , Multiple Myeloma Multiply relapsed.. Started treatment with teclistamab on 08/03/23 Well tolerated Held for the past weeks b/o covid and subsequently sinusitis K/l ratio has declined from 32 --> 6.99 indicating response Lambda has declined to <0.17 Restarted in February 2024 Has excellent ongoing response Switch to teclistamab every other week. 2. 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 3. COVID - September 24- resolved. But with multiple recurrences in late winter and spring Duration of Visit This is a Established visit. I spent 40 minutes in the care of this patient, including preparing, chart and results review, face time and charting. @KEEGANATURE@ documented [facility] this [facility] Work Phone: [phone] Evaluation + Plan note* Assessment & Plan Note - MATT Mendosa - 02/14/2024 6:23 PM EDTAssociated Problem(s): Immunodeficiency disorder (Multi) Infection prophylaxis VZV: Acyclovir 400 mg PO BID PJP: Trimethoprim-sulfamethoxazole 800-160 mg PO 3x weekly Hypogammaglobulinemia IVIG given 09/22/23, 10/29/23 ([facility]) 12/08/23 01/12/24 02/12/24. Cont monthly. [facility] Work Phone: [phone] Miscellaneous Notes* Assessment & Plan Note - MATT Mendosa - 02/14/2024 6:23 PM EDTAssociated Problem(s): Immunodeficiency disorder (Multi) Infection prophylaxis VZV: Acyclovir 400 mg PO BID PJP: Trimethoprim-sulfamethoxazole 800-160 mg PO 3x weekly Hypogammaglobulinemia IVIG given 09/22/23, 10/29/23 ([facility]) 12/08/23 01/12/24 02/12/24. Cont monthly. documented in this [facility] Work Phone: [phone]) 712-170604-09-2024 History of Present illness Narrative* MATT Mendosa - 02/09/2024 10:00 AM EDT Patient ID: Mojgan Pérez is a 68 y.o. female. Referring Physician: ONC Dr Lindquist Primary Care Provider: Fabiola Marinelli MD Assessment/Plan 02/09/24 Cough/URI improved with Hycodan and Cefdinir. Pulmonary appt 02/11. Resume teclistimab. Requested myeloma restaging labs for 02/16/24. Monthly IVIG today. RLL swelling. Doppler ultrasound r/o DVT. Consider allergy testing to confirm antibiotic allergies. Interested in transitioning [facility] with DR Marinelli. Oncology History Overview Note Referral from Dr. Marinelli at [facility]. MGUS since 2005 Followed at [facility] by Dr. Kumari, and [...] both hips 800 cGy 04/10/2020 Velcade dex Jennifer 07/31/2021 Radiation to soff tissue area of hip 3000 cGray 08/30/2021 Jennifer Rev 12/2021 Not a candidate for transplant (pancytopenia/liver cirrhosis) 12/2021 Jennifer Pomalidomide ->marrow suppression 07/2022 carfilzomib cyclophosphamide -> marrow suppression 05/24 Bmbx small percentage of plasma cells; hypocellular. Since the marrow was obtained in what waspossibly radiation field this may not be entirely premium service representative. Also clonal evolution in the marrow with the most recent marrow showing additional cytogenetic abnormalities. 07/23/23 Restaging labs: free lambda light chain 35.95 mg/dL (up from 5.65 mg/dL in December 2022) and free-lambda M-spike of 0.1 g/dL Myeloma responding (lambda chains <0.17) 07/23/23 Restaging labs: free lambda light chain 35.95 mg/dL (up from 5.65 mg/dL in December 2022) and free-lambda M-spike of 0.1 g/dL Teclistamab ramp-up (08/04-08/06-08/09/23): complicated grade-I CRS (fevers) and ICANS (suzanna ICE score 8/10) C2D1 teclistamab weekly (08/17/23, 08/25/23, 09/01/23, 09/08/23). Changed threshold notification forplt <35. 09/08/23 K/L ratio 0.01; IgG 338. SPEP pending. C3D1 teclisitimab weekly beginning 09/15/23- held due to Covid. 09/08/23 SPEP -no M protein 09/29/23 K/L chain ratio unable to calculate 11/17/23 IgG 526, IgA <7, IgM <5. SPEP and K/L chain ratio pending Multiple myeloma (Multi) 08/03/2023 Initial Diagnosis Multiple myeloma ([facility]) 08/04/2023 - 09/08/2023 Chemotherapy Teclistamab ramp-up (08/04-08/06-08/09/23): complicated grade-I CRS (fevers) and ICANS (suzanna ICE score 8/10) C2D1 teclistamab weekly (08/17/23, 08/25/23, 09/01/23, 09/08/23). Changed threshold notification for plt <35. 09/08/23 K/L ratio 0.01; IgG 338. SPEP pending. C3D1 teclisitimab weekly beginning 09/15/23. (Held 09/15, 09/22 09/29 12 due Covid + on 09/12/23. Treated with Paxlovid in [place] Plan to reassess and proceed with C3D1 with ongoing resolution of sx. Teclistamab (Weekly), 28 Day Cycles 11/18/2023 - Chemotherapy -2nd teclistamab ramp up C1D1 started on 11/18/23; then 11/20/23 and 11/22/23. C2D1 11/27/23 C2D8 12/08/23 (delayed 10 days to resume appt on Tuesdays) C2D15 12/15/23 C2D22 and 28; C3D1 held due to Covid. C3D8 01/12/24 C3D15 01/19/24 C3D22 and D28 held due to persistent cough. C4D1 Restart. Teclistamab (Weekly), 28 Day Cycles Multiple myeloma not having achieved remission (Multi) 10/20/2023 Initial Diagnosis Multiple myeloma not having achieved remission (CMS/HCC) Problem List Items Addressed This Visit ICD-10-CM Hypertension I10 Hyperlipidemia E78.5 Type 2 diabetes mellitus (Multi) E11.9 Peripheral neuropathy G62.9 Fibromyalgia M79.7 Immunodeficiency disorder (Multi) D84.9 Infection prophylaxis VZV: Acyclovir 400 mg PO BID PJP: Trimethoprim-sulfamethoxazole 800-160 mg PO 3x weekly Hypogammaglobulinemia IVIG given 09/22/23, 10/29/23 ([facility]) 12/08/23 01/12/24 02/12/24. Cont monthly. 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) (Multi) K75.81, K74.60 Multiple myeloma not having achieved remission (Multi) - Primary C90.00 Relevant Orders Vascular US lower extremity venous duplex right CBC and Auto Differential Comprehensive Metabolic Panel Serum Protein Electrophoresis [place]/Lambda Free Light Chain, Serum Immunoglobulins (IgG, IgA, IgM) Subjective History of Present Illness: Mrs Pérez presents to the clinic today with her daughter. Feels well enough to restart weekly teclistimab. When will I be able to transition treatment to [facility]? Cough better. Yellowish sputum. Resolved chunky green orange. No fever. No SOB. More tired walking.Hernia seems bigger with coughing. Sign Wirer on Thursday. R Leg swollen new for 3 days. No pain. Neuropathy stable. Appetite better. Gaining weight. Review of Systems Constitutional: Positive for fatigue. HENT: Negative. Eyes: Negative. Respiratory: Positive for cough. Cardiovascular: Positive for leg swelling (R). Gastrointestinal: Positive for nausea (Periodically,). Endocrine: Negative. Genitourinary: Negative. Musculoskeletal: Negative. Neuropathic pain in hands and legs. Skin: Negative. Neurological: Negative. Hematological: Bruises/bleeds easily. Psychiatric/Behavioral: Negative. Objective Physical Exam Vitals reviewed. Constitutional: Appearance: Normal appearance. HENT: Head: Normocephalic and atraumatic. Nose: Nose normal. Mouth/Throat: Mouth: Mucous membranes are moist. Eyes: Pupils: Pupils are equal, round, and reactive to light. Cardiovascular: Rate and Rhythm: Normal rate and regular rhythm. Pulses: Normal pulses. Heart sounds: Normal heart sounds. Pulmonary: Effort: Pulmonary effort is normal. Breath sounds: Normal breath sounds. Abdominal: General: Abdomen is flat. Bowel sounds are normal. Palpations: Abdomen is soft. Musculoskeletal: General: Normal range of motion. Cervical back: Normal range of motion. Right lower leg: Edema (1+) present. Skin: General: Skin is warm and dry. Neurological: General: No focal deficit present. Mental Status: She is alert and oriented to person, place, and time. Psychiatric: Mood and Affect: Mood normal. RTC 02/15 02/22 Dr Lindquist 03/01 03/08 03/15 03/22 Dr Lindquist (Weekly through 07/05/24) documented in this [facility] Work Phone: [phone]) [phone] Evaluation note* Author Julissa Ramos [facility] HospitalAuthoredPrem[facility] 2023 11:03amThe above note written by Julissa Ramos MA acting as human recorder, note dictated by Katie Holder APRN, [employer]OR-[employer] [facility] Work Phone: [phone]) [phone] History of Present illness Narrative* MATT Mendosa - 01/12/2024 1:30 PM EDT Patient ID: Mojgan Pérez is a 68 y.o. female. Referring Physician: ONC Dr Lindquist Primary Care Provider: Fabiola Marinelli MD Assessment/Plan 01/12/24 Recovered from 2nd Covid infection. Residual cough. 4 weeks from last teclistamab dose. Resume today. Monthly IVIG today too. Oncology History Overview Note Referral from Dr. Marinelli at [facility]. MGUS since 2005 Followed at [facility] by Dr. Kumari, and then Dr. Cummings. [...] both hips 800 cGy 04/10/2020 Velcade dex Jennifer 07/31/2021 Radiation to soff tissue area of hip 3000 cGray 08/30/2021 Jennifer Rev 12/2021 Not a candidate for transplant (pancytopenia/liver cirrhosis) 12/2021 Jennifer Pomalidomide ->marrow suppression 07/2022 carfilzomib cyclophosphamide -> marrow suppression 05/24 Bmbx small percentage of plasma cells; hypocellular. Since the marrow was obtained in what waspossibly radiation field this may not be entirely premium service representative. Also clonal evolution in the marrow with the most recent marrow showing additional cytogenetic abnormalities. 07/23/23 Restaging labs: free lambda light chain 35.95 mg/dL (up from 5.65 mg/dL in December 2022) and free-lambda M-spike of 0.1 g/dL Myeloma responding (lambda chains <0.17) 07/23/23 Restaging labs: free lambda light chain 35.95 mg/dL (up from 5.65 mg/dL in December 2022) and free-lambda M-spike of 0.1 g/dL Teclistamab ramp-up (08/04-08/06-08/09/23): complicated grade-I CRS (fevers) and ICANS (suzanna ICE score 8/10) C2D1 teclistamab weekly (08/17/23, 08/25/23, 09/01/23, 09/08/23). Changed threshold notification forplt <35. 09/08/23 K/L ratio 0.01; IgG 338. SPEP pending. C3D1 teclisitimab weekly beginning 09/15/23- held due to Covid. 09/08/23 SPEP -no M protein 09/29/23 K/L chain ratio unable to calculate 11/17/23 IgG 526, IgA <7, IgM <5. SPEP and K/L chain ratio pending Multiple myeloma (CMS/HCC) 08/03/2023 Initial Diagnosis Multiple myeloma ([facility]) 08/04/2023 - 09/08/2023 Chemotherapy Teclistamab ramp-up (08/04-08/06-08/09/23): complicated grade-I CRS (fevers) and ICANS (suzanna ICE score 8/10) C2D1 teclistamab weekly (08/17/23, 08/25/23, 09/01/23, 09/08/23). Changed threshold notification for plt <35. 09/08/23 K/L ratio 0.01; IgG 338. SPEP pending. C3D1 teclisitimab weekly beginning 09/15/23. (Held 09/15, 09/22 09/29 10/06 due Covid + on 09/12/23. Treated with Paxlovid in [place] Plan to reassess and proceed with C3D1 with ongoing resolution of sx. Teclistamab (Weekly), 28 Day Cycles 11/18/2023 - Chemotherapy -2nd teclistamab ramp up C1D1 started on 11/18/23; then 11/20/23 and 11/22/23. C2D1 11/27/23 C2D8 12/08/23 (delayed 10 days to resume appt on Tuesdays) C2D15 12/15/23 C2D22 and 28; C3D1 held due to Covid. C3D8 01/12/24 Teclistamab (Weekly), 28 Day Cycles Multiple myeloma not having achieved remission (CMS/HCC) 10/20/2023 Initial Diagnosis Multiple myeloma not having achieved remission ([facility]) Problem List Items Addressed This Visit ICD-10-CM Peripheral neuropathy G62.9 Depression F32.A Relevant Medications DULoxetine (Cymbalta) [address] capsule Immunodeficiency disorder (CMS/HCC) D84.9 Infection prophylaxis VZV: Acyclovir 400 mg PO BID PJP: Trimethoprim-sulfamethoxazole 800-160 mg PO 3x weekly Hypogammaglobulinemia IVIG given 09/22/23, 10/29/23 ([facility]) and 12/08/23. Plan next today 01/12/24. 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) (CMS/HCC) - Primary K75.81, K74.60 Subjective History of Present Illness: Mrs Pérez presents to the clinic today with her son. Covid again on 12/17. Overall, feels much better. (Not prescribed paxlovid) Pulmicort, azithromycin and prednisone supportive care for Covid symptoms. Occas cough/better. Yellow phlegm. No SOB. Appetite and energy low. Able to do some things around the house. No falls. Diarrhea x2 days yesterday. Took Imodium x1. Melatonin effective sleep aide. More leg pain, R>L. Hx of XRT. Review of Systems Constitutional: Positive for appetite change and fatigue. HENT: Negative. Eyes: Negative. Respiratory: Positive for cough. Cardiovascular: Negative. Gastrointestinal: Negative. Endocrine: Negative. Genitourinary: Negative. Musculoskeletal: Negative. Skin: Negative. Neurological: Negative. Hematological: Negative. Psychiatric/Behavioral: Negative. Objective Physical Exam Vitals reviewed. Constitutional: Appearance: Normal appearance. HENT: Head: Normocephalic and atraumatic. Nose: Nose normal. Mouth/Throat: Mouth: Mucous membranes are moist. Eyes: Pupils: Pupils are equal, round, and reactive to light. Cardiovascular: Rate and Rhythm: Normal rate and regular rhythm. Pulses: Normal pulses. Heart sounds: Normal heart sounds. Pulmonary: Effort: Pulmonary effort is normal. Breath sounds: Normal breath sounds. Abdominal: General: Abdomen is flat. Bowel sounds are normal. Palpations: Abdomen is soft. Musculoskeletal: General: Normal range of motion. Cervical back: Normal range of motion. Skin: General: Skin is warm and dry. Comments: Mediport site clean. Neurological: General: No focal deficit present. Mental Status: She is alert and oriented to person, place, and time. Psychiatric: Mood and Affect: Mood normal. Scheduled weekly on Tuesdays through May. documented in this [facility]Un[facility] Work Phone: [phone]) [phone] Evaluation + Plan note* Assessment & Plan Note - MATT Mendosa - 01/11/2024 6:18 PM EDTAssociated Problem(s): Immunodeficiency disorder (CMS/HCC) Infection prophylaxis VZV: Acyclovir 400 mg PO BID PJP: Trimethoprim-sulfamethoxazole 800-160 mg PO 3x weekly Hypogammaglobulinemia IVIG given 09/22/23, 10/29/23 ([facility]) and 12/08/23. Plan next today 01/12/24. [facility] Work Phone: [phone] Miscellaneous Notes* Assessment & Plan Note - MATT Mendosa - 01/11/2024 6:18 PM EDTAssociated Problem(s): Immunodeficiency disorder (CMS/HCC) Infection prophylaxis VZV: Acyclovir 400 mg PO BID PJP: Trimethoprim-sulfamethoxazole 800-160 mg PO 3x weekly Hypogammaglobulinemia IVIG given 09/22/23, 10/29/23 ([facility]) and 12/08/23. Plan next today 01/12/24. documented in this [facility]Un[facility] Work Phone: [phone] Evaluation + Plan note* Assessment & Plan Note - MATT Mendosa - 01/03/2024 11:33 AM ESTAssociated Problem(s): Immunodeficiency disorder (CMS/HCC) Infection prophylaxis VZV: Acyclovir 400 mg PO BID PJP: Trimethoprim-sulfamethoxazole 800-160 mg PO 3x weekly Hypogammaglobulinemia IVIG given 09/22/23, 10/29/23 ([facility]) and 12/08/23. Plan next dose 01/05/24. [facility] Work Phone: [phone] Miscellaneous Notes* Assessment & Plan Note - MATT Mendosa - 01/03/2024 11:33 AM ESTAssociated Problem(s): Immunodeficiency disorder ([facility]) Infection prophylaxis VZV: Acyclovir 400 mg PO BID PJP: Trimethoprim-sulfamethoxazole 800-160 mg PO 3x weekly Hypogammaglobulinemia IVIG given 09/22/23, 10/29/23 ([facility]) and 12/08/23. Plan next dose 01/05/24. documented in this [facility] Work Phone: [phone] History of Present illness Narrative* MATT Mendosa - 12/29/2023 2:00 PM EST Patient ID: Mojgan Pérez is a 68 y.o. female. Referring Physician: Supa Lindquist MD PhD [id number] [place] [address] Primary Care Provider: Fabiola Marinelli MD Assessment/Plan 12/29/23 Covid again. Coughing. Ok to try OTC cold medicine. Hold treatment today. Myeloma labs remain stable. Platelet count improving. RTC next week for IVIG +/- teclistamab. Oncology History Overview Note Referral from Dr. Marinelli at [facility]. MGUS since 2005 Followed at [facility] by Dr. Kumari, and [...] both hips 800 cGy 04/10/2020 Velcade dex Jennifer 07/31/2021 Radiation to soff tissue area of hip 3000 cGray 08/30/2021 Jennifer Rev 12/2021 Not a candidate for transplant (pancytopenia/liver cirrhosis) 12/2021 Jennifer Pomalidomide ->marrow suppression 07/2022 carfilzomib cyclophosphamide -> marrow suppression 05/24 Bmbx small percentage of plasma cells; hypocellular. Since the marrow was obtained in what waspossibly radiation field this may not be entirely premium service representative. Also clonal evolution in the marrow with the most recent marrow showing additional cytogenetic abnormalities. 07/23/23 Restaging labs: free lambda light chain 35.95 mg/dL (up from 5.65 mg/dL in December 2022) and free-lambda M-spike of 0.1 g/dL Myeloma responding (lambda chains <0.17) 07/23/23 Restaging labs: free lambda light chain 35.95 mg/dL (up from 5.65 mg/dL in December 2022) and free-lambda M-spike of 0.1 g/dL Teclistamab ramp-up (08/04-08/06-08/09/23): complicated grade-I CRS (fevers) and ICANS (suzanna ICE score 8/10) C2D1 teclistamab weekly (08/17/23, 08/25/23, 09/01/23, 09/08/23). Changed threshold notification forplt <35. 09/08/23 K/L ratio 0.01; IgG 338. SPEP pending. C3D1 teclisitimab weekly beginning 09/15/23- held due to Covid. 09/08/23 SPEP -no M protein 09/29/23 K/L chain ratio unable to calculate 11/17/23 IgG 526, IgA <7, IgM <5. SPEP and K/L chain ratio pending Multiple myeloma (CMS/HCC) 08/03/2023 Initial Diagnosis Multiple myeloma (CMS/HCC) 08/04/2023 - 09/08/2023 Chemotherapy Teclistamab ramp-up (08/04-08/06-08/09/23): complicated grade-I CRS (fevers) and ICANS (suzanna ICE score 8/10) C2D1 teclistamab weekly (08/17/23, 08/25/23, 09/01/23, 09/08/23). Changed threshold notification for plt <35. 09/08/23 K/L ratio 0.01; IgG 338. SPEP pending. C3D1 teclisitimab weekly beginning 09/15/23. (Held 09/15, 09/22 09/29 10/06 due Covid + on 09/12/23. Treated with Paxlovid in [place] Plan to reassess and proceed with C3D1 with ongoing resolution of sx. Teclistamab (Weekly), 28 Day Cycles 11/18/2023 - Chemotherapy -2nd teclistamab ramp up C1D1 started on 11/18/23; then 11/20/23 and 11/22/23. C2D1 11/27/23 C2D8 12/08/23 (delayed 10 days to resume appt on Tuesdays) Teclistamab (Weekly), 28 Day Cycles Multiple myeloma not having achieved remission (CMS/HCC) 10/20/2023 Initial Diagnosis Multiple myeloma not having achieved remission (CMS/HCC) Problem List Items Addressed This Visit ICD-10-CM Immunodeficiency disorder (CMS/HCC) D84.9 Infection prophylaxis VZV: Acyclovir 400 mg PO BID PJP: Trimethoprim-sulfamethoxazole 800-160 mg PO 3x weekly Hypogammaglobulinemia IVIG given 09/22/23, 10/29/23 ([facility]) and 12/08/23. Plan next dose 01/05/24. 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) (CMS/HCC) - Primary K75.81, K74.60 Multiple myeloma not having achieved remission (CMS/HCC) C90.00 Relevant Orders CBC and Auto Differential (Completed) Comprehensive Metabolic Panel (Completed) [place]/Lambda Free Light Chain, Serum (Completed) Serum Protein Electrophoresis (Completed) Immunoglobulins (IgG, IgA, IgM) (Completed) Infusion Appointment Request [facility] Subjective History of Present Illness: Mrs Pérez presents to the clinic today with her daughter. Covid again on 12/17. Fever. Congestion Cough. SOB. No Paxlovid. Ongoing cough. Better, still persistent. Using albuterol and tessalon. No other family sick. More leg pain, R>L. Hx of XRT. Not eating well. Drinking well. More tired. Anticipates follow up CXR tomorrow. Review of Systems Constitutional: Positive for fatigue. HENT: Negative. Eyes: Negative. Respiratory: Positive for cough and shortness of breath (With exertion.). Cardiovascular: Negative. Gastrointestinal: Negative. Endocrine: Negative. Genitourinary: Negative. Musculoskeletal: Positive for arthralgias and myalgias. Skin: Negative. Neurological: Negative. Hematological: Negative. Psychiatric/Behavioral: Negative. Objective Physical Exam Vitals reviewed. Constitutional: Appearance: Normal appearance. Comments: Tired appearing. HENT: Head: Normocephalic and atraumatic. Nose: Nose normal. Mouth/Throat: Mouth: Mucous membranes are moist. Eyes: Pupils: Pupils are equal, round, and reactive to light. Cardiovascular: Rate and Rhythm: Normal rate and regular rhythm. Pulses: Normal pulses. Heart sounds: Normal heart sounds. Pulmonary: Effort: Pulmonary effort is normal. Breath sounds: Normal breath sounds. Abdominal: General: Abdomen is flat. Bowel sounds are normal. Palpations: Abdomen is soft. Musculoskeletal: General: Normal range of motion. Skin: General: Skin is warm and dry. Neurological: General: No focal deficit present. Mental Status: She is alert and oriented to person, place, and time. Psychiatric: Mood and Affect: Mood normal. RTC 01/04 with IVIG 01/11, March, April, May teclistamab appt scheduled. 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 female. Referring Physician: ONC (main) Dr Lindquist Primary Care Provider: Local Oncologist Fabiola Marinelli MD Assessment/Plan 11/27/23 Admitted for 2nd ramp up teclistimab on 11/17/23. C2D1 today. RTC 12/08 and resume weekly appts on Tuesdays. Oncology History Overview Note Referral from Dr. Marinelli at [facility]. MGUS since 2005 Followed at [facility] by Dr. Kumari, and then Dr. Cummings. [...] both hips 800 cGy 04/10/2020 Velcade dex Jennifer 07/31/2021 Radiation to soff tissue area of hip 3000 cGray 08/30/2021 Jennifer Rev 12/2021 Not a candidate for transplant (pancytopenia/liver cirrhosis) 12/2021 Jennifer Pomalidomide ->marrow suppression 07/2022 carfilzomib cyclophosphamide -> marrow suppression 05/24 Bmbx small percentage of plasma cells; hypocellular. Since the marrow was obtained in what waspossibly radiation field this may not be entirely premium service representative. Also clonal evolution in the marrow with the most recent marrow showing additional cytogenetic abnormalities. 07/23/23 Restaging labs: free lambda light chain 35.95 mg/dL (up from 5.65 mg/dL in December 2022) and free-lambda M-spike of 0.1 g/dL Myeloma responding (lambda chains <0.17) 07/23/23 Restaging labs: free lambda light chain 35.95 mg/dL (up from 5.65 mg/dL in December 2022) and free-lambda M-spike of 0.1 g/dL Teclistamab ramp-up (08/04-08/06-08/09/23): complicated grade-I CRS (fevers) and ICANS (suzanna ICE score 8/10) C2D1 teclistamab weekly (08/17/23, 08/25/23, 09/01/23, 09/08/23). Changed threshold notification forplt <35. 09/08/23 K/L ratio 0.01; IgG 338. SPEP pending. C3D1 teclisitimab weekly beginning 09/15/23- held due to Covid. 09/08/23 SPEP -no M protein 09/29/23 K/L chain ratio unable to calculate 11/17/23 IgG 526, IgA <7, IgM <5. SPEP and K/L chain ratio pending Multiple myeloma ([facility]) 08/03/2023 Initial Diagnosis Multiple myeloma ([facility]) 08/04/2023 - 09/08/2023 Chemotherapy Teclistamab ramp-up (08/04-08/06-08/09/23): complicated grade-I CRS (fevers) and ICANS (suzanna ICE score 8/10) C2D1 teclistamab weekly (08/17/23, 08/25/23, 09/01/23, 09/08/23). Changed threshold notification for plt <35. 09/08/23 K/L ratio 0.01; IgG 338. SPEP pending. C3D1 teclisitimab weekly beginning 09/15/23. (Held 09/15, 09/22 09/29 12 due Covid + on 09/12/23. Treated with Paxlovid in [place] Plan to reassess and proceed with C3D1 with ongoing resolution of sx. Teclistamab (Weekly), 28 Day Cycles 11/18/2023 - Chemotherapy -2nd teclistamab ramp up C1D1 started on 11/18/23; then 11/20/23 and 11/22/23. C2D1 11/27/23 C2D8 12/08/23 (delayed 10 days to resume appt on Tuesdays) Teclistamab (Weekly), 28 Day Cycles Multiple myeloma not having achieved remission ([facility]) 10/20/2023 Initial Diagnosis Multiple myeloma not having achieved remission ([facility]) Problem List Items Addressed This Visit ICD-10-CM Immunodeficiency disorder ([facility]) - Primary D84.9 Infection prophylaxis VZV: Acyclovir 400 mg PO BID PJP: Trimethoprim-sulfamethoxazole 800-160 mg PO 3x weekly Hypogammaglobulinemia IVIG given 09/22/23 and 10/29/23 ([facility]) Plan next dose 12/08/23 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) (CMS/HCC) K75.81, K74.60 Thrombocytopenia (CMS/HCC) D69.6 Multiple myeloma not having achieved remission (CMS/HCC) C90.00 Relevant Orders Treatment Conditions (Completed) Subjective History of Present Illness: Mrs Pérez presents to the clinic with her granddaughters. Denies new problems, concerns. Energy level pretty good. Appetite ok. Gained 5 pounds. Takes Zofran for nausea 2x day. Mild residual cough with oocas clear to yellow phlegm. Denies KRISHNA, confusion, word-finding difficulty, change in vision. Review of Systems Constitutional: Negative. HENT: Negative. Eyes: Negative. Respiratory: Negative. Cardiovascular: Negative. Gastrointestinal: Negative. Endocrine: Negative. Genitourinary: Negative. Musculoskeletal: Negative. Normal pain in legs, back and hands (neuropathy) Skin: Negative. Neurological: Negative. Hematological: Negative. Psychiatric/Behavioral: Positive for sleep disturbance (Melatonin helps.). Objective Physical Exam Vitals reviewed. Constitutional: Appearance: Normal appearance. HENT: Head: Normocephalic and atraumatic. Nose: Nose normal. Mouth/Throat: Mouth: Mucous membranes are moist. Eyes: Pupils: Pupils are equal, round, and reactive to light. Cardiovascular: Rate and Rhythm: Normal rate and regular rhythm. Pulses: Normal pulses. Heart sounds: Normal heart sounds. Pulmonary: Effort: Pulmonary effort is normal. Breath sounds: Normal breath sounds. Abdominal: General: Abdomen is flat. Bowel sounds are normal. Palpations: Abdomen is soft. Musculoskeletal: General: Normal range of motion. Cervical back: Normal range of motion. Skin: General: Skin is warm and dry. Comments: Mediport site clean. Neurological: General: No focal deficit present. Mental Status: She is alert and oriented to person, place, and time. Psychiatric: Mood and Affect: Mood normal. documented in this [facility] Work Phone: 1(328) 339-784701-26-2024 Evaluation + Plan note* Assessment & Plan Note - MATT Mendosa - 11/27/2023 10:27 AM ESTAssociated Problem(s): Immunodeficiency disorder (CMS/HCC) Infection prophylaxis VZV: Acyclovir 400 mg PO BID PJP: Trimethoprim-sulfamethoxazole 800-160 mg PO 3x weekly Hypogammaglobulinemia IVIG given 09/22/23 and 10/29/23 ([facility]) Plan next dose 12/08/23 [facility] Work Phone: [phone]) 567-166601-26-2024 Miscellaneous Notes* Assessment & Plan Note - MATT Mendosa - 11/27/2023 10:27 AM ESTAssociated Problem(s): Immunodeficiency disorder (CMS/HCC) Infection prophylaxis VZV: Acyclovir 400 mg PO BID PJP: Trimethoprim-sulfamethoxazole 800-160 mg PO 3x weekly Hypogammaglobulinemia IVIG given 09/22/23 and 10/29/23 ([facility]) Plan next dose 12/08/23 documented in this [facility] Work Phone: 1([phone]) 331-295801-24-2024 Hospital Discharge instructions* Discharge Instructions* MATT Starr - 11/25/2023 8:29 AM EST Following chemotherapy there may be a drop in your white blood cell count which makes you more susceptible to the bacteria and other germs. These exposures can cause you to have neutropenic fevers (fevers that may happen after chemotherapy from your immune system being low). Tylenol can mask fevers and we recommend that you do not take Tylenol once you go home for pain. You may take it if you develop a fever >100.4 F but please call your oncologist and go to the nearest emergency room. Youmay require intravenous antibiotics depending on your blood counts. Please also avoid enemas/suppositories, flossing and shaving with a razor following chemo because this can expose you to harmful bacteria. Meticulous hand and oral hygiene are the best ways to prevent infections during this time. You should avoid alcohol based mouth washes at this can cause break down in your mouth as well. A salt and baking soda mouthwash is good for keeping the mouth clean. Please also avoid anyone who is sick or large crowds of people if possible. If traveling in large crowds, please wear a mask for your own protection. documented in this [facility] Work Phone: 1(882) 885-812001-24-2024 Plan of care note* Care Plan - Clementina Benito RN - 11/25/2023 6:32 AM EST ICE score 10/10. Vitals stable, afebrile. Patient denied N/V/D overnight. [facility] Work Phone: [phone]) 554-835001-24-2024 Miscellaneous Notes* Care Plan - Clementina Benito RN - 11/25/2023 6:32 AM EST ICE score 10/10. Vitals stable, afebrile. Patient denied N/V/D overnight. * Significant Event - Joaquina Cordon RN - 11/22/2023 3:43 PM EST 11/22/23 1542 Prechemo Checklist Has the patient been in the hospital, ED, or urgent care since last date of service N/A Chemo/Immuno Consent Signed Yes Protocol/Indications Verified Yes Confirmed to previous date/time of medication Yes Compared to previous dose Yes All medications are dated accurately Yes Test Negative Not applicable Parameters Met (!) No (per Dr. Juan Antonio duarte to give regardles of counts) Provider Notified Yes Provider Name Mariah Romano MD Is Patient Proceeding With Treatment? Yes BSA/Weight-Height Verified Yes Dose Calculations Verified Yes * Care Plan - Stella Wall RN - 11/21/2023 3:36 PM EST The clinical goals for the shift include patient will remain HDS this shift Patient with stable VS. Took 1 dose of pain meds later in shift for back pain. No nausea. Up ad kelly. No SOB. Patient remained safe this shift. Stella Wall RN * Care Plan - Clementina Benito RN - 11/21/2023 6:34 AM EST Problem: Pain Goal: Takes deep breaths with improved pain control throughout the shift Outcome: Progressing Goal: Turns in bed with improved pain control throughout the shift Outcome: Progressing Goal: Walks with improved pain control throughout the shift Outcome: Progressing Goal: Performs ADL's with improved pain control throughout shift Outcome: Progressing Goal: Participates in PT with improved pain control throughout the shift Outcome: Progressing Goal: Free from opioid side effects throughout the shift Outcome: Progressing Goal: Free from acute confusion related to pain meds throughout the shift Outcome: Progressing * Significant Event - Johny Carter RN - 11/20/2023 9:56 AM EST 11/20/23 0906 Prechemo Checklist Has the patient been in the hospital, ED, or urgent care since last date of service N/A Chemo/Immuno Consent Signed Yes Protocol/Indications Verified Yes Confirmed to previous date/time of medication Yes Compared to previous dose Yes All medications are dated accurately Yes Test Negative Not applicable Parameters Met (!) No (per Dr. Romano ok to give with low platelet count) Provider Notified Yes Provider Name Dr. Juan Antonio MD Is Patient Proceeding With Treatment? Yes BSA/Weight-Height Verified Yes Dose Calculations Verified Yes * Care Plan - Clementina Benito RN - 11/20/2023 6:14 AM EST Problem: Pain Goal: Takes deep breaths with improved pain control throughout the shift Outcome: Progressing Goal: Turns in bed with improved pain control throughout the shift Outcome: Progressing Goal: Walks with improved pain control throughout the shift Outcome: Progressing Goal: Performs ADL's with improved pain control throughout shift Outcome: Progressing Goal: Participates in PT with improved pain control throughout the shift Outcome: Progressing Goal: Free from opioid side effects throughout the shift Outcome: Progressing Goal: Free from acute confusion related to pain meds throughout the shift Outcome: Progressing The patient's goals for the shift include * Care Plan - Natalee Rascon RN - 11/18/2023 7:46 PM EST Patient afebrile. Vitals stable. Labs drawn. Parameters not met. Doctors okay with going ahead withchemo. Will continue to monitor * Hospital Course - MATT Starr - 11/18/2023 6:29 PM EST Mojgan Pérez is a 68 y.o. female with PMH of HTN, DMII, HLD, fibromyalgia, neuropathy, GERD, COPD,aortic stenosis, aortic aneurysm, KAPADIA, liver cirrhosis, and refractory MM s/p multiple lines of therapy who is a direct admit for 2nd ramp up of Teclistamab due to treatment hold duration. Hospital course uncomplicated. Patient discharged to home. Ppx: ACV, bactrim Access: R mediport Follow up: - 11/27/23: follow up with Lisette Perkins + infusion appt Patient was due to receive IVIG in [place] with Dr. Fabiola Marinelli however Dr. Cotton discussed delaying treatment at this time and patient verbalized understanding Med Rec reviewed with pharmD at discharge M2B delivered documented in this [facility] Work Phone: 1([phone]) 295-896401-23-2024 History of Present illness Narrative* Megan Acacia Borrego, VISUAL [employer]CH[employer]-SALES DEVELOPMENT REPRESENTATIVE - 11/24/2023 10:49 AM EST Mojgan Pérez is a 68 y.o. female on day 6 of admission presenting with Multiple myeloma not havingachieved remission (CMS/HCC). Subjective Afebrile. Essentially no complaints other than mild nausea this AM that did not require anti-emeticand resolved on its own. Denies CP SOB palpitations KRISHNA vision changes abdominal pain no current NVDC voiding clear yellow urine. Ambulating in halls no bleeding noted, appetite stable, eager for discharge ROS otherwise unremarkable Objective Physical Exam Constitutional: General: She is not in acute distress. Appearance: She is not ill-appearing. HENT: Nose: Nose normal. Mouth/Throat: Mouth: Mucous membranes are moist. Pharynx: Oropharynx is clear. Eyes: Extraocular Movements: Extraocular movements intact. Pupils: Pupils are equal, round, and reactive to light. Cardiovascular: Rate and Rhythm: Normal rate and regular rhythm. Pulmonary: Effort: Pulmonary effort is normal. No respiratory distress. Breath sounds: Normal breath sounds. Abdominal: General: Bowel sounds are normal. Palpations: Abdomen is soft. Tenderness: There is no abdominal tenderness. Musculoskeletal: General: Normal range of motion. Cervical back: Normal range of motion. Skin: General: Skin is warm and dry. Capillary Refill: Capillary refill takes less than 2 seconds. Comments: Skin tear medial lower abdomen, covered with mepilex, almost closed Neurological: General: No focal deficit present. Mental Status: She is alert and oriented to person, place, and time. Psychiatric: Mood and Affect: Mood normal. Behavior: Behavior normal. Last Recorded Vitals Blood pressure 148/82, pulse 83, temperature 36.7 C (98.1 F), temperature source Temporal, resp. rate 18, height 1.561 m (5' 1.46 ), weight 76.3 kg (168 lb 3.4 oz), SpO2 99 %. Intake/Output last 3 Shifts: I/O last 3 completed shifts: In: 50 (0.7 mL/kg) [I.V.:50 (0.7 mL/kg)] Out: - (0 mL/kg) Weight: 76.3 kg Relevant Results Scheduled medications acyclovir, 400 mg, oral, BID atorvastatin, 80 mg, oral, Daily carvedilol, 12.5 mg, oral, BID with meals cyanocobalamin, 1,000 mcg, oral, Daily diphenhydrAMINE, 50 mg, oral, Once DULoxetine, 60 mg, oral, Daily gabapentin, 100 mg, oral, BID insulin lispro, 0-5 Units, subcutaneous, Before meals & nightly lisinopril, 5 mg, oral, Daily metFORMIN, 500 mg, oral, BID with meals pantoprazole, 40 mg, oral, Daily before breakfast potassium chloride, 40 mEq, intravenous, Once potassium chloride CR, 10 mEq, oral, Daily sulfamethoxazole-trimethoprim, 1 tablet, oral, Every Mon/Thu/Thu Continuous medications PRN medications PRN medications: albuterol, albuterol, alteplase, dextrose 10 % in water (D10W), dextrose, dextrose, diphenhydrAMINE, EPINEPHrine HCl, famotidine, fluticasone, gabapentin, glucagon, methylPREDNISolone sodium succinate (PF), ondansetron ODT, oxyCODONE, polyethylene glycol, prochlorperazine, prochlorperazine, sennosides- docusate sodium, sodium chloride Assessment/Plan Principal Problem: Multiple myeloma not having achieved remission (CMS/HCC) Mojgan Pérez is a 68 y.o. female with PMH of HTN, DMII, HLD, fibromyalgia, neuropathy, GERD, COPD,aortic stenosis, aortic aneurysm, KAPADIA, liver cirrhosis, and refractory MM s/p multiple lines of therapy who is now a direct admit for 2nd ramp up of Teclistamab due to treatment hold duration. D7 Teclistamab 2nd Ramp-up (started 11/18) ONC: #High risk multiple myeloma light chain disease with complex karyotype, multiple relapsed -[id number] Observation -2019 Palliative XRT both hips 800 cGy -04/10/2020 Velcade dex jennifer -Marrow 2020 gain 1q and deletion 13q. -07/31/2021 Radiation to soff tissue area of hip 3000 cGray -08/30/2021 Jennifer rev -12/2021 considered not a candidate for transplant (pancytopenia - liver cirrhosis) -12/2021 Jennifer/Pomalidomide -marrow suppression -07/2022 carfilzomib - cyclophosphamide marrow suppression -Marrow 05/2023: 1q+, 4p-, 13q/-13, 14q- and 16q- -07/23/23: IgG 522, IgM 36, IgA 36, KFLC 1.34, LFLC 35.95 -s/p Teclistamab ramp up C1D1 on 08/04/23; complicated by grade-I CRS (fevers) and ICANS (suzanna ICE score 8/10) -C2D1 teclistamab weekly (08/17/23, 08/25/23, 09/01/23, 09/08/23) -09/08/23 K/L ratio 0.01; IgG 338. -C3D1 teclisitimab weekly beginning 09/15/23, never started due to Covid + on 09/12/23, subsequent sinusitis -11/17/23 Teclistimab held since September (09/12/23) due to Covid with prolonged recovery. Ready foradmission to resume teclistimab. Requires 2nd ramp up due to treatment hold duration. -11/17/23 IgG 526, IgA <7, IgM <5. K<0.08, L<0.17. SPEP WNL. -2nd teclistamab ramp up C1D1 started on 11/18/23 at 2100 - patients Plt count is not at goal per order-set, discussed with Attending and ok to proceed with dosing without plt transfusion #CRS Monitoring Lab Results Component Value Date FERRITIN 24 11/24/2023 FERRITIN 29 11/23/2023 FERRITIN 33 11/22/2023 Lab Results Component Value Date CRP 0.12 11/24/2023 CRP 0.12 11/23/2023 CRP 0.14 11/22/2023 Lab Results Component Value Date FIBRINOGEN 281 11/24/2023 FIBRINOGEN 163 (L) 11/23/2023 FIBRINOGEN 170 (L) 11/22/2023 ICE Total Score: 10 last 24 hours. HEME: #Pancytopenia, secondary to disease, treatment, hypersplenism -Transfuse to keep hgb>7, plt> 10 -No signs of bleeding or DIC on admission #chronic BLE swelling, R>L -No h/o DVT -Swelling is a chronic issue r/t R knee surgery, R fibula fracture and chronic R hip pain. FEN/GI -Admission weight: 77.7 kg -Low pathogen diet -cont home potassium 10mEq daily -Additional KCL 40 IV (11/24) -Home Omeprazole continued as Protonix #opioid induced constipation - miralax prn, anusha-colace prn #h/o KAPADIA, liver cirrhosis -LFTs stable on admission -LFT monitoring per protocol ID -Ppx: Acyclovir 400mg BID, Bactrim MWF -Afebrile on admit #hx recent COVID infxn (Sep 2023) s/p paxlovid CARDS -ECHO (11/2022): LVEF 55-60%. Doppler measurements with impaired left ventricular relaxation. #h/o Aortic aneurysm -Follows with cardiology outpatient #HTN -Cont home Carvedilol 12.5mg BID -Cont home Lisinopril 5mg qd #HLD -Cont home Atorvastatin ENDO #DMII -Continue home Metfomin -Start mild SSI on admit MISC #Neoplasm Related Pain -Cont home Oxycodone IR 10mg q6hr PRN #Peripheral Neuropathy -Continue home Gabapentin 100mg 1 to 2 capsules PO BID (ordered as 100mg BID and 100mg BID prn) confirmed with pharmD -Continue Duloxetine 60mg qd DISPO Full code, confirmed on admit Oncologist: Dr. Lindquist Access: Pilo Fernandez Patient seen discussed and examined with Dr. Theresa Borrego, KEITH-SALES DEVELOPMENT REPRESENTATIVE Associated attestation - Theresa Romano MD PhD - 11/24/2023 9:39 PM EST This is a shared visit. I have reviewed the Advanced Practice Provider's encounter note, approve the Advanced Practice Provider's documentation, and provide the following additional information from my personal encounter. 68 yo F with [employer] MM, not a transplant candidate due to liver cirrhosis. Admitted for teclistamab restart up after holding tx for COVID infection. VS, labs, medications reviewed. PE remarkable for overweight, elderly woman in NAD. RRR, CTAB, softabdomen, euvolemic. No CRS or ICANS to date. Discharge 48h after day 5 pending clinical status. PLAN: - Day 5 teclistamab - ACV, Bactrim ppx - Follow up with Dr. KAN after d/c * Garima Clemons PA-C - 11/23/2023 8:35 AM EST Mojgan Pérez is a 68 y.o. female on day 5 of admission presenting with Multiple myeloma not havingachieved remission (CMS/HCC). Subjective Afebrile. No complaints. Denies any new pain, endorsed baseline bilateral leg pain. Appetite stable. Denies CP SOB palpitations KRISHNA vision changes abdominal pain NVDC. No bleeding noted. ROS otherwiseunremarkable Objective Physical Exam Constitutional: General: She is not in acute distress. Appearance: She is not ill-appearing. HENT: Nose: Nose normal. Mouth/Throat: Mouth: Mucous membranes are moist. Pharynx: Oropharynx is clear. Eyes: Extraocular Movements: Extraocular movements intact. Pupils: Pupils are equal, round, and reactive to light. Cardiovascular: Rate and Rhythm: Normal rate and regular rhythm. Pulmonary: Effort: Pulmonary effort is normal. No respiratory distress. Breath sounds: Normal breath sounds. Abdominal: General: Bowel sounds are normal. Palpations: Abdomen is soft. Tenderness: There is no abdominal tenderness. Musculoskeletal: General: Normal range of motion. Cervical back: Normal range of motion. Skin: General: Skin is warm and dry. Capillary Refill: Capillary refill takes less than 2 seconds. Comments: Skin tear medial lower abdomen, covered with mepilex, almost closed Neurological: General: No focal deficit present. Mental Status: She is alert and oriented to person, place, and time. Psychiatric: Mood and Affect: Mood normal. Behavior: Behavior normal. Last Recorded Vitals Blood pressure 145/76, pulse 81, temperature 36.2 C (97.2 F), temperature source Temporal, resp. rate 16, height 1.561 m (5' 1.46 ), weight 76.3 kg (168 lb 3.4 oz), SpO2 95 %. Intake/Output last 3 Shifts: I/O last 3 completed shifts: In: 120 (1.6 mL/kg) [P.O.:120] Out: - (0 mL/kg) Weight: 76.3 kg Relevant Results Scheduled medications acyclovir, 400 mg, oral, BID atorvastatin, 80 mg, oral, Daily carvedilol, 12.5 mg, oral, BID with meals cyanocobalamin, 1,000 mcg, oral, Daily diphenhydrAMINE, 50 mg, oral, Once DULoxetine, 60 mg, oral, Daily gabapentin, 100 mg, oral, BID insulin lispro, 0-5 Units, subcutaneous, Before meals & nightly lisinopril, 5 mg, oral, Daily metFORMIN, 500 mg, oral, BID with meals pantoprazole, 40 mg, oral, Daily before breakfast potassium chloride CR, 10 mEq, oral, Daily sulfamethoxazole-trimethoprim, 1 tablet, oral, Every Mon/Thu/Fri Continuous medications PRN medications PRN medications: albuterol, albuterol, alteplase, dextrose 10 % in water (D10W), dextrose, dextrose, diphenhydrAMINE, EPINEPHrine HCl, famotidine, fluticasone, gabapentin, glucagon, methylPREDNISolone sodium succinate (PF), ondansetron ODT, oxyCODONE, polyethylene glycol, prochlorperazine, prochlorperazine, sennosides- docusate sodium, sodium chloride Assessment/Plan Principal Problem: Multiple myeloma not having achieved remission (CMS/HCC) Mojgan Pérez is a 68 y.o. female with PMH of HTN, DMII, HLD, fibromyalgia, neuropathy, GERD, COPD,aortic stenosis, aortic aneurysm, KAPADIA, liver cirrhosis, and refractory MM s/p multiple lines of therapy who is now a direct admit for 2nd ramp up of Teclistamab due to treatment hold duration. D6 Teclistamab 2nd Ramp-up (started 11/18) ONC: #High risk multiple myeloma light chain disease with complex karyotype, multiple relapsed -[id number] Observation -2019 Palliative XRT both hips 800 cGy -04/10/2020 Velcade dex jennifer -Marrow 2020 gain 1q and deletion 13q. -07/31/2021 Radiation to soff tissue area of hip 3000 cGray -08/30/2021 Jennifer rev -12/2021 considered not a candidate for transplant (pancytopenia - liver cirrhosis) -12/2021 Jennifer/Pomalidomide -marrow suppression -07/2022 carfilzomib - cyclophosphamide marrow suppression -Marrow 05/2023: 1q+, 4p-, 13q/-13, 14q- and 16q- -07/23/23: IgG 522, IgM 36, IgA 36, KFLC 1.34, LFLC 35.95 -s/p Teclistamab ramp up C1D1 on 08/04/23; complicated by grade-I CRS (fevers) and ICANS (suzanna ICE score 8/10) -C2D1 teclistamab weekly (08/17/23, 08/25/23, 09/01/23, 09/08/23) -09/08/23 K/L ratio 0.01; IgG 338. -C3D1 teclisitimab weekly beginning 09/15/23, never started due to Covid + on 09/12/23, subsequent sinusitis -11/17/23 Teclistimab held since September (09/12/23) due to Covid with prolonged recovery. Ready foradmission to resume teclistimab. Requires 2nd ramp up due to treatment hold duration. -11/17/23 IgG 526, IgA <7, IgM <5. K<0.08, L<0.17. SPEP WNL. -2nd teclistamab ramp up C1D1 started on 11/18/23 at 2100 - patients Plt count is not at goal per order-set, discussed with Attending and ok to proceed with dosing without plt transfusion #CRS Monitoring Lab Results Component Value Date FERRITIN 29 11/23/2023 FERRITIN 33 11/22/2023 FERRITIN 32 11/21/2023 Lab Results Component Value Date CRP 0.12 11/23/2023 CRP 0.14 11/22/2023 CRP 0.17 11/21/2023 Lab Results Component Value Date FIBRINOGEN 163 (L) 11/23/2023 FIBRINOGEN 170 (L) 11/22/2023 FIBRINOGEN 196 (L) 11/21/2023 ICE Total Score: 10 last 24 hours. HEME: #Pancytopenia, secondary to disease, treatment, hypersplenism -Transfuse to keep hgb>7, plt> 10 -No signs of bleeding or DIC on admission #chronic BLE swelling, R>L -No h/o DVT -Swelling is a chronic issue r/t R knee surgery, R fibula fracture and chronic R hip pain. FEN/GI -Admission weight: 77.7 kg -Low pathogen diet -cont home potassium 10mEq daily -Home Omeprazole continued as Protonix #opioid induced constipation - miralax prn, anusha-colace prn #h/o KAPADIA, liver cirrhosis -LFTs stable on admission -Daily LFT monitoring ID -Ppx: Acyclovir 400mg BID, Bactrim MWF -Afebrile on admit #hx recent COVID infxn (Sep 2023) s/p paxlovid CARDS -ECHO (11/2022): LVEF 55-60%. Doppler measurements with impaired left ventricular relaxation. #h/o Aortic aneurysm -Follows with cardiology outpatient #HTN -Cont home Carvedilol 12.5mg BID -Cont home Lisinopril 5mg qd #HLD -Cont home Atorvastatin ENDO #DMII -Continue home Metfomin -Start mild SSI on admit MISC #Neoplasm Related Pain -Cont home Oxycodone IR 10mg q6hr PRN #Peripheral Neuropathy -Continue home Gabapentin 100mg 1 to 2 capsules PO BID (ordered as 100mg BID and 100mg BID prn) confirmed with pharmD -Continue Duloxetine 60mg qd DISPO Full code, confirmed on admit Oncologist: Dr. Lindquist Access: Pilo Fernandez Patient seen discussed and examined with Dr. Theresa Clemons PA-C Associated attestation - Threesa Romano MD PhD - 11/24/2023 9:39 PM EST This is a shared visit. I have reviewed the Advanced Practice Provider's encounter note, approve the Advanced Practice Provider's documentation, and provide the following additional information from my personal encounter. 68 yo F with [facility] [employer] MM, not a transplant candidate due to liver cirrhosis. Admitted for teclistamab restart up after holding tx for COVID infection. VS, labs, medications reviewed. PE remarkable for overweight, elderly woman in NAD. RRR, CTAB, softabdomen, euvolemic. No CRS or ICANS to date. Discharge 48h after day 5 pending clinical status. PLAN: - Day 5 teclistamab - ACV, Bactrim ppx - Follow up with Dr. KAN after d/c * Garima Clemons PA-C - 11/22/2023 7:33 AM EST Mojgan Pérez is a 68 y.o. female on day 4 of admission presenting with Multiple myeloma not havingachieved remission (CMS/HCC). Subjective Afebrile. Denies any new pain, endorsed baseline bilateral leg pain. Appetite stable. Endorses a slight cough and congestion, states she thinks it is from being cold after her shower. No coughing on exam. Denies CP SOB palpitations KRISHNA vision changes abdominal pain NVDC. No bleeding noted. ROS otherwise unremarkable Objective Physical Exam Constitutional: General: She is not in acute distress. Appearance: She is not ill-appearing. HENT: Nose: Nose normal. Mouth/Throat: Mouth: Mucous membranes are moist. Pharynx: Oropharynx is clear. Eyes: Extraocular Movements: Extraocular movements intact. Pupils: Pupils are equal, round, and reactive to light. Cardiovascular: Rate and Rhythm: Normal rate and regular rhythm. Pulmonary: Effort: Pulmonary effort is normal. No respiratory distress. Breath sounds: Normal breath sounds. Abdominal: General: Bowel sounds are normal. Palpations: Abdomen is soft. Tenderness: There is no abdominal tenderness. Musculoskeletal: General: Normal range of motion. Cervical back: Normal range of motion. Skin: General: Skin is warm and dry. Capillary Refill: Capillary refill takes less than 2 seconds. Comments: Skin tear medial lower abdomen covered with mepilex Neurological: General: No focal deficit present. Mental Status: She is alert and oriented to person, place, and time. Psychiatric: Mood and Affect: Mood normal. Behavior: Behavior normal. Last Recorded Vitals Blood pressure 134/83, pulse 75, temperature 36 C (96.8 F), temperature source Temporal, resp. rate18, height 1.561 m (5' 1.46 ), weight 76.3 kg (168 lb 3.4 oz), SpO2 97 %. Intake/Output last 3 Shifts: I/O last 3 completed shifts: In: 360 (4.7 mL/kg) [P.O.:360] Out: 4 (0.1 mL/kg) [Urine:4 (0 mL/kg/hr)] Weight: 76.3 kg Relevant Results Scheduled medications acyclovir, 400 mg, oral, BID atorvastatin, 80 mg, oral, Daily carvedilol, 12.5 mg, oral, BID with meals cyanocobalamin, 1,000 mcg, oral, Daily diphenhydrAMINE, 50 mg, oral, Once DULoxetine, 60 mg, oral, Daily gabapentin, 100 mg, oral, BID insulin lispro, 0-5 Units, subcutaneous, Before meals & nightly lisinopril, 5 mg, oral, Daily metFORMIN, 500 mg, oral, BID with meals pantoprazole, 40 mg, oral, Daily before breakfast potassium chloride CR, 10 mEq, oral, Daily sulfamethoxazole-trimethoprim, 1 tablet, oral, Every Mon/Thu/Fri Continuous medications PRN medications PRN medications: albuterol, albuterol, alteplase, dextrose 10 % in water (D10W), dextrose, dextrose, diphenhydrAMINE, EPINEPHrine HCl, famotidine, fluticasone, gabapentin, glucagon, methylPREDNISolone sodium succinate (PF), ondansetron ODT, oxyCODONE, polyethylene glycol, prochlorperazine, prochlorperazine, sennosides- docusate sodium, sodium chloride Assessment/Plan Principal Problem: Multiple myeloma not having achieved remission (CMS/HCC) Mojgan Pérez is a 68 y.o. female with PMH of HTN, DMII, HLD, fibromyalgia, neuropathy, GERD, COPD,aortic stenosis, aortic aneurysm, KAPADIA, liver cirrhosis, and refractory MM s/p multiple lines of therapy who is now a direct admit for 2nd ramp up of Teclistamab due to treatment hold duration. D5 Teclistamab 2nd Ramp-up (started 11/18) ONC: #High risk multiple myeloma light chain disease with complex karyotype, multiple relapsed -[id number] Observation -2019 Palliative XRT both hips 800 cGy -04/10/2020 Velcade dex jennifer -Marrow 2020 gain 1q and deletion 13q. -07/31/2021 Radiation to soff tissue area of hip 3000 cGray -08/30/2021 Jennifer rev -12/2021 considered not a candidate for transplant (pancytopenia - liver cirrhosis) -12/2021 Jennifer/Pomalidomide -marrow suppression -07/2022 carfilzomib - cyclophosphamide marrow suppression -Marrow 05/2023: 1q+, 4p-, 13q/-13, 14q- and 16q- -07/23/23: IgG 522, IgM 36, IgA 36, KFLC 1.34, LFLC 35.95 -s/p Teclistamab ramp up C1D1 on 08/04/23; complicated by grade-I CRS (fevers) and ICANS (suzanna ICE score 8/10) -C2D1 teclistamab weekly (08/17/23, 08/25/23, 09/01/23, 09/08/23) -09/08/23 K/L ratio 0.01; IgG 338. -C3D1 teclisitimab weekly beginning 09/15/23, never started due to Covid + on 09/12/23, subsequent sinusitis -11/17/23 Teclistimab held since September (09/12/23) due to Covid with prolonged recovery. Ready foradmission to resume teclistimab. Requires 2nd ramp up due to treatment hold duration. -11/17/23 IgG 526, IgA <7, IgM <5. K<0.08, L<0.17. SPEP WNL. -2nd teclistamab ramp up C1D1 started on 11/18/23 at 2100 - patients Plt count is not at goal per order-set, discussed with Attending and ok to proceed with dosing without plt transfusion #CRS Monitoring Lab Results Component Value Date FERRITIN 33 11/22/2023 FERRITIN 32 11/21/2023 FERRITIN 35 11/20/2023 Lab Results Component Value Date CRP 0.14 11/22/2023 CRP 0.17 11/21/2023 CRP 0.26 11/20/2023 Lab Results Component Value Date FIBRINOGEN 170 (L) 11/22/2023 FIBRINOGEN 196 (L) 11/21/2023 FIBRINOGEN 192 (L) 11/20/2023 ICE Total Score: 10 last 24 hours. HEME: #Pancytopenia, secondary to disease, treatment, hypersplenism -Transfuse to keep hgb>7, plt> 10 -No signs of bleeding or DIC on admission #chronic BLE swelling, R>L -No h/o DVT -Swelling is a chronic issue r/t R knee surgery, R fibula fracture and chronic R hip pain. FEN/GI -Admission weight: 77.7 kg -Low pathogen diet -cont home potassium 10mEq daily -Home Omeprazole continued as Protonix #opioid induced constipation - miralax prn, anusha-colace prn #h/o KAPADIA, liver cirrhosis -LFTs stable on admission -Daily LFT monitoring ID -Ppx: Acyclovir 400mg BID, Bactrim MWF -Afebrile on admit #hx recent COVID infxn (Sep 2023) s/p paxlovid CARDS -ECHO (11/2022): LVEF 55-60%. Doppler measurements with impaired left ventricular relaxation. #h/o Aortic aneurysm -Follows with cardiology outpatient #HTN -Cont home Carvedilol 12.5mg BID -Cont home Lisinopril 5mg qd #HLD -Cont home Atorvastatin ENDO #DMII -Continue home Metfomin -Start mild SSI on admit MISC #Neoplasm Related Pain -Cont home Oxycodone IR 10mg q6hr PRN #Peripheral Neuropathy -Continue home Gabapentin 100mg 1 to 2 capsules PO BID (ordered as 100mg BID and 100mg BID prn) confirmed with pharmD -Continue Duloxetine 60mg qd DISPO Full code, confirmed on admit Oncologist: Dr. Lindquist Access: Pilo Fernandez Patient seen discussed and examined with Dr. Theresa Clemons PA-C Associated attestation - Theresa Romano MD PhD - 11/22/2023 4:17 PM EST This is a shared visit. I have reviewed the Advanced Practice Provider's encounter note, approve the Advanced Practice Provider's documentation, and provide the following additional information from my personal encounter. 68 yo F with [employer] MM, not a transplant candidate due to liver cirrhosis. Admitted for teclistamab restart up after holding tx for COVID infection. VS, labs, medications reviewed. PE remarkable for overweight, elderly woman in NAD. RRR, CTAB, softabdomen, euvolemic. No CRS or ICANS to date. Discharge 48h after day 5 pending clinical status. PLAN: - Day 5 teclistamab - ACV, Bactrim ppx - Follow up with Dr. KAN after d/c * Garima Clemons PA-C - 11/21/2023 8:46 AM EST Mojgan Pérez is a 68 y.o. female on day 3 of admission presenting with Multiple myeloma not havingachieved remission (CMS/HCC). Subjective Afebrile. Denies any new pain, endorsed baseline bilateral leg pain. Appetite better today, stomachhasn't been upset like it usually is, ate the best cheeseburger she has ever had. Denies CP SOB palpitations KRISHNA vision changes abdominal pain NVDC. Ambulating in halls. No bleeding noted. ROS otherwise unremarkable Objective Physical Exam Constitutional: General: She is not in acute distress. Appearance: She is not ill-appearing. HENT: Nose: Nose normal. Mouth/Throat: Mouth: Mucous membranes are moist. Pharynx: Oropharynx is clear. Eyes: Extraocular Movements: Extraocular movements intact. Pupils: Pupils are equal, round, and reactive to light. Cardiovascular: Rate and Rhythm: Normal rate and regular rhythm. Pulmonary: Effort: Pulmonary effort is normal. No respiratory distress. Breath sounds: Normal breath sounds. Abdominal: General: Bowel sounds are normal. Palpations: Abdomen is soft. Tenderness: There is no abdominal tenderness. Musculoskeletal: General: Normal range of motion. Cervical back: Normal range of motion. Skin: General: Skin is warm and dry. Capillary Refill: Capillary refill takes less than 2 seconds. Comments: Skin tear medial lower abdomen covered with mepilex Neurological: General: No focal deficit present. Mental Status: She is alert and oriented to person, place, and time. Psychiatric: Mood and Affect: Mood normal. Behavior: Behavior normal. Last Recorded Vitals Blood pressure 124/72, pulse 87, temperature 36.7 C (98.1 F), temperature source Temporal, resp. rate 16, height 1.561 m (5' 1.46 ), weight 76.3 kg (168 lb 3.4 oz), SpO2 96 %. Intake/Output last 3 Shifts: No intake/output data recorded. Relevant Results Scheduled medications acyclovir, 400 mg, oral, BID atorvastatin, 80 mg, oral, Daily carvedilol, 12.5 mg, oral, BID with meals cyanocobalamin, 1,000 mcg, oral, Daily diphenhydrAMINE, 50 mg, oral, Once DULoxetine, 60 mg, oral, Daily gabapentin, 100 mg, oral, BID insulin lispro, 0-5 Units, subcutaneous, Before meals & nightly lisinopril, 5 mg, oral, Daily metFORMIN, 500 mg, oral, BID with meals pantoprazole, 40 mg, oral, Daily before breakfast potassium chloride CR, 10 mEq, oral, Daily sulfamethoxazole-trimethoprim, 1 tablet, oral, Every Mon/Thu/Thu Continuous medications PRN medications PRN medications: albuterol, albuterol, alteplase, dextrose 10 % in water (D10W), dextrose, dextrose, diphenhydrAMINE, EPINEPHrine HCl, famotidine, fluticasone, gabapentin, glucagon, methylPREDNISolone sodium succinate (PF), ondansetron ODT, oxyCODONE, polyethylene glycol, prochlorperazine, prochlorperazine, sennosides- docusate sodium, sodium chloride Assessment/Plan Principal Problem: Multiple myeloma not having achieved remission (CMS/HCC) Mojgan Pérez is a 68 y.o. female with PMH of HTN, DMII, HLD, fibromyalgia, neuropathy, GERD, COPD,aortic stenosis, aortic aneurysm, KAPADIA, liver cirrhosis, and refractory MM s/p multiple lines of therapy who is now a direct admit for 2nd ramp up of Teclistamab due to treatment hold duration. Teclistamab 2nd Ramp-up: step up dose 1 (11/18), step up dose 2 (11/20), plan first treatment dose tomorrow 11/22 ONC: #High risk multiple myeloma light chain disease with complex karyotype, multiple relapsed -[id number] Observation -2019 Palliative XRT both hips 800 cGy -04/10/2020 Velcade dex jennifer -Marrow 2020 gain 1q and deletion 13q. -07/31/2021 Radiation to soff tissue area of hip 3000 cGray -08/30/2021 Jennifer rev -12/2021 considered not a candidate for transplant (pancytopenia - liver cirrhosis) -12/2021 Jennifer/Pomalidomide -marrow suppression -07/2022 carfilzomib - cyclophosphamide marrow suppression -Marrow 05/2023: 1q+, 4p-, 13q/-13, 14q- and 16q- -07/23/23: IgG 522, IgM 36, IgA 36, KFLC 1.34, LFLC 35.95 -s/p Teclistamab ramp up C1D1 on 08/04/23; complicated by grade-I CRS (fevers) and ICANS (suzanna ICE score 8/10) -C2D1 teclistamab weekly (08/17/23, 08/25/23, 09/01/23, 09/08/23) -09/08/23 K/L ratio 0.01; IgG 338. -C3D1 teclisitimab weekly beginning 09/15/23, never started due to Covid + on 09/12/23, subsequent sinusitis -11/17/23 Teclistimab held since September (09/12/23) due to Covid with prolonged recovery. Ready foradmission to resume teclistimab. Requires 2nd ramp up due to treatment hold duration. -11/17/23 IgG 526, IgA <7, IgM <5. K<0.08, L<0.17. SPEP WNL. -2nd teclistamab ramp up C1D1 started on 11/18/23 at 2100 - patients Plt count is not at goal per order-set, discussed with Attending and ok to proceed with dosing without plt transfusion #CRS Monitoring Lab Results Component Value Date FERRITIN 32 11/21/2023 FERRITIN 35 11/20/2023 FERRITIN 35 11/19/2023 Lab Results Component Value Date CRP 0.17 11/21/2023 CRP 0.26 11/20/2023 CRP 0.38 11/19/2023 Lab Results Component Value Date FIBRINOGEN 196 (L) 11/21/2023 FIBRINOGEN 192 (L) 11/20/2023 FIBRINOGEN 221 11/19/2023 last 24 hours. HEME: #Pancytopenia, secondary to disease, treatment, hypersplenism -Transfuse to keep hgb>7, plt> 10 -No signs of bleeding or DIC on admission #chronic BLE swelling, R>L -No h/o DVT -Swelling is a chronic issue r/t R knee surgery, R fibula fracture and chronic R hip pain. FEN/GI -Admission weight: 77.7 kg -Low pathogen diet -cont home potassium 10mEq daily -Home Omeprazole continued as Protonix #opioid induced constipation - miralax prn, anusha-colace prn #h/o KAPADIA, liver cirrhosis -LFTs stable on admission -Daily LFT monitoring ID -Ppx: Acyclovir 400mg BID, Bactrim MWF -Afebrile on admit #hx recent COVID infxn (Sep 2023) s/p paxlovid CARDS -ECHO (11/2022): LVEF 55-60%. Doppler measurements with impaired left ventricular relaxation. #h/o Aortic aneurysm -Follows with cardiology outpatient #HTN -Cont home Carvedilol 12.5mg BID -Cont home Lisinopril 5mg qd #HLD -Cont home Atorvastatin ENDO #DMII -Continue home Metfomin -Start mild SSI on admit MISC #Neoplasm Related Pain -Cont home Oxycodone IR 10mg q6hr PRN #Peripheral Neuropathy -Continue home Gabapentin 100mg 1 to 2 capsules PO BID (ordered as 100mg BID and 100mg BID prn) confirmed with pharmD -Continue Duloxetine 60mg qd DISPO Full code, confirmed on admit Oncologist: Dr. Lindquist Access: Pilo Fernandez Patient seen discussed and examined with Dr. Theresa Clemons PA-C Associated attestation - Theresa Romano MD PhD - 11/22/2023 4:17 PM EST This is a shared visit. I have reviewed the Advanced Practice Provider's encounter note, approve the Advanced Practice Provider's documentation, and provide the following additional information from my personal encounter. 68 yo F with [employer] MM, not a transplant candidate due to liver cirrhosis. Admitted for teclistamab restart up after holding tx for COVID infection. VS, labs, medications reviewed. PE remarkable for overweight, elderly woman in NAD. RRR, CTAB, softabdomen, euvolemic. No CRS or ICANS to date. Discharge 48h after day 5 pending clinical status. PLAN: - Day 4 teclistamab - ACV, Bactrim ppx - Follow up with Dr. KAN after d/c * Yesenia Palencia RN - 11/20/2023 4:37 PM EST Images from the original note were not included. Wound Care Progress Note Visit Date: 11/20/2023 Patient Name: Mojgan Pérez Reason for Visit: skin tear medial lower abdomen Wound Assessment: Wound 11/20/23 Pelvis Medial (Active) Date First Assessed/Time First Assessed: 11/20/23 1236 Present on Original Admission: No Location: Pelvis Wound Location Orientation: Medial Assessments 11/20/2023 4:37 PM Wound Length (cm) 0.4 cm Wound Width (cm) 0.6 cm Wound Surface Area (cm^2) 0.24 cm^2 Active Orders Date Order Priority Status Authorizing Provider 11/20/23 1240 Inpatient Consult to Wound and Ostomy Nurse Routine Active Theresa Romano MD PhD - Reason for Consult?: Wound Wound 11/20/23 Pelvis Medial (Active) Date First Assessed/Time First Assessed: 11/20/23 1236 Present on Original Admission: No Location: Pelvis Wound Location Orientation: Medial Number of days: 0 Wound 11/20/23 Pelvis Medial (Active) Wound Image 11/20/23 1237 Wound Length (cm) 0.4 cm 11/20/23 1637 Wound Width (cm) 0.6 cm 11/20/23 1637 Wound Surface Area (cm^2) 0.24 cm^2 11/20/23 1637 Wound care recommendation by location Medial abdomen: DAILY Keep clean and dry Irrigate with normal saline or wound cleanser Apply Medihoney to wound bed ([employer] order # [id number]) Cover with small piece of Aquacel rope Cover with Mepilex lite ([employer] order #[id number]) Wound Team Plan: Primary provider, please review recommendation. If you agree with recommendation please enter as wound orders in EMR. Thank you. Yesenia Palencia RN, CWON 11/20/2023 4:37 PM * Megan Borrego APRN-TONYA - 11/20/2023 12:03 PM EST Mojgan Pérez is a 68 y.o. female on day 2 of admission presenting with Multiple myeloma not havingachieved remission (CMS/HCC). Subjective Afebrile. Denies any new pain, endorsed baseline bilateral leg pain. Denies CP SOB palpitations KRISHNA vision changes abdominal pain NVDC ambulating in halls. No bleeding noted. Appetite fair ROS otherwise unremarkable Objective Physical Exam Constitutional: General: She is not in acute distress. Appearance: She is not ill-appearing or toxic-appearing. HENT: Nose: Nose normal. Mouth/Throat: Mouth: Mucous membranes are moist. Pharynx: No oropharyngeal exudate or posterior oropharyngeal erythema. Eyes: Pupils: Pupils are equal, round, and reactive to light. Cardiovascular: Rate and Rhythm: Normal rate and regular rhythm. Heart sounds: No murmur heard. Pulmonary: Effort: Pulmonary effort is normal. Breath sounds: Examination of the right-lower field reveals decreased breath sounds. Examination ofthe left-lower field reveals decreased breath sounds. Decreased breath sounds present. Abdominal: General: Bowel sounds are normal. Palpations: Abdomen is soft. Musculoskeletal: General: Normal range of motion. Cervical back: Normal range of motion and neck supple. No rigidity or tenderness. Skin: General: Skin is warm and dry. Capillary Refill: Capillary refill takes less than 2 seconds. Coloration: Skin is not jaundiced. Findings: No bruising. Neurological: Mental Status: She is alert and oriented to person, place, and time. Last Recorded Vitals Blood pressure 146/82, pulse 77, temperature 37 C (98.6 F), temperature source Temporal, resp. rate18, height 1.561 m (5' 1.46 ), weight 76.9 kg (169 lb 8.5 oz), SpO2 98 %. Intake/Output last 3 Shifts: No intake/output data recorded. Relevant Results Scheduled medications acetaminophen, 650 mg, oral, Once acyclovir, 400 mg, oral, BID atorvastatin, 80 mg, oral, Daily carvedilol, 12.5 mg, oral, BID with meals cyanocobalamin, 1,000 mcg, oral, Daily dexAMETHasone, 16 mg, oral, Once diphenhydrAMINE, 50 mg, oral, Once DULoxetine, 60 mg, oral, Daily gabapentin, 100 mg, oral, BID insulin lispro, 0-5 Units, subcutaneous, Before meals & nightly lisinopril, 5 mg, oral, Daily metFORMIN, 500 mg, oral, BID with meals pantoprazole, 40 mg, oral, Daily before breakfast potassium chloride CR, 10 mEq, oral, Daily sulfamethoxazole-trimethoprim, 1 tablet, oral, Every Mon/Wed/Fri teclistamab-cqyv, 0.3 mg/kg (Treatment Plan Recorded), subcutaneous, Once Continuous medications PRN medications PRN medications: albuterol, albuterol, alteplase, dextrose 10 % in water (D10W), dextrose, dextrose, diphenhydrAMINE, EPINEPHrine HCl, famotidine, fluticasone, gabapentin, glucagon, methylPREDNISolone sodium succinate (PF), ondansetron ODT, oxyCODONE, polyethylene glycol, prochlorperazine, prochlorperazine, sennosides- docusate sodium, sodium chloride Assessment/Plan Principal Problem: Multiple myeloma not having achieved remission (CMS/HCC) Mojgan Pérez is a 68 y.o. female with PMH of HTN, DMII, HLD, fibromyalgia, neuropathy, GERD, COPD,aortic stenosis, aortic aneurysm, KAPADIA, liver cirrhosis, and refractory MM s/p multiple lines of therapy who is now a direct admit for 2nd ramp up of Teclistamab due to treatment hold duration. Teclistamab 2nd Ramp-up 11/20 @ 2100 ONC: #High risk multiple myeloma light chain disease with complex karyotype, multiple relapsed -9920-1505 Observation -2019 Palliative XRT both hips 800 cGy -04/10/2020 Velcade dex jennifer -Marrow 2020 gain 1q and deletion 13q. -07/31/2021 Radiation to soff tissue area of hip 3000 cGray -08/30/2021 Jennifer rev -12/2021 considered not a candidate for transplant (pancytopenia - liver cirrhosis) -12/2021 Jennifer/Pomalidomide -marrow suppression -07/2022 carfilzomib - cyclophosphamide marrow suppression -Marrow 05/2023: 1q+, 4p-, 13q/-13, 14q- and 16q- -07/23/23: IgG 522, IgM 36, IgA 36, KFLC 1.34, LFLC 35.95 -s/p Teclistamab ramp up C1D1 on 08/04/23; complicated by grade-I CRS (fevers) and ICANS (suzanna ICE score 8/10) -C2D1 teclistamab weekly (08/17/23, 08/25/23, 09/01/23, 09/08/23) -09/08/23 K/L ratio 0.01; IgG 338. -C3D1 teclisitimab weekly beginning 09/15/23, never started due to Covid + on 09/12/23, subsequent sinusitis -11/17/23 Teclistimab held since September (09/12/23) due to Covid with prolonged recovery. Ready foradmission to resume teclistimab. Requires 2nd ramp up due to treatment hold duration. -11/17/23 IgG 526, IgA <7, IgM <5. K<0.08, L<0.17. SPEP WNL. -2nd teclistamab ramp up C1D1 started on 11/18/23 at 2100 - patients Plt count is not at goal per order-set, discussed with Attending and ok to proceed with dosing without plt transfusion CRS Monitoring: -Ferritin: 35 (11/20) -CRP: 0.26 (11/20) -Fibrinogen: 192 (11/20) -ICE Score: 10/10 (11/20) HEME: #Pancytopenia, secondary to disease, treatment, hypersplenism -Transfuse to keep hgb>7, plt> 10 -No signs of bleeding or DIC on admission #chronic BLE swelling, R>L -No h/o DVT -Swelling is a chronic issue r/t R knee surgery, R fibula fracture and chronic R hip pain. FEN/GI -Admission weight: 77.7 kg -Low pathogen diet -cont home potassium 10mEq daily -Home Omeprazole continued as Protonix #opioid induced constipation - miralax prn, anusha-colace prn #h/o KAPADIA, liver cirrhosis -LFTs stable on admission -Daily LFT monitoring ID -Ppx: Acyclovir 400mg BID, Bactrim MWF -Afebrile on admit #hx recent COVID infxn (Sep 2023) s/p paxlovid CARDS -ECHO (11/2022): LVEF 55-60%. Doppler measurements with impaired left ventricular relaxation. #h/o Aortic aneurysm -Follows with cardiology outpatient #HTN -Cont home Carvedilol 12.5mg BID -Cont home Lisinopril 5mg qd #HLD -Cont home Atorvastatin ENDO #DMII -Continue home Metfomin -Start mild SSI on admit MISC #Neoplasm Related Pain -Cont home Oxycodone IR 10mg q6hr PRN #Peripheral Neuropathy -Continue home Gabapentin 100mg 1 to 2 capsules PO BID (ordered as 100mg BID and 100mg BID prn) confirmed with pharmD -Continue Duloxetine 60mg qd DISPO Full code, confirmed on admit Oncologist: Dr. Lindquist Access[facility] seen discussed and examined with Dr. Theresa Borrego, [employer]IS[employer]ELOPMENT REPRESENTATIVE Associated attestation - Theresa Romano MD PhD - 11/22/2023 4:16 PM EST This is a shared visit. I have reviewed the Advanced Practice Provider's encounter note, approve the Advanced Practice Provider's documentation, and provide the following additional information from my personal encounter. 68 yo F with [employer] MM, not a transplant candidate due to liver cirrhosis. Admitted for teclistamab restart up after holding tx for COVID infection. VS, labs, medications reviewed. PE remarkable for overweight, elderly woman in NAD. RRR, CTAB, softabdomen, euvolemic. PLAN: - Day 3 teclistamab - ACV, Bactrim ppx - Follow up with Dr. KAN after d/c * Garima Clemons PA-C - 11/19/2023 5:48 PM EST Mojgan Pérez is a 68 y.o. female on day 1 of admission presenting with Multiple myeloma not havingachieved remission (CMS/HCC). Subjective Patient overall feeling well, no new complaints. Slept well. Last BM on , good one. Endorses chronic leg pain c/w prior. Denies F/C, KRISHNA, CP, SOB, abd pain, N/V/D/C. Objective Physical Exam Constitutional: General: She is not in acute distress. HENT: Head: Normocephalic and atraumatic. Nose: Nose normal. Mouth/Throat: Mouth: Mucous membranes are moist. Pharynx: Oropharynx is clear. Eyes: Extraocular Movements: Extraocular movements intact. Pupils: Pupils are equal, round, and reactive to light. Cardiovascular: Rate and Rhythm: Normal rate and regular rhythm. Pulmonary: Effort: Pulmonary effort is normal. No respiratory distress. Breath sounds: Normal breath sounds. Abdominal: General: Bowel sounds are normal. Palpations: Abdomen is soft. Tenderness: There is no abdominal tenderness. Hernia: A hernia (abdominal, hypogastric region) is present. Musculoskeletal: General: Normal range of motion. Skin: General: Skin is warm and dry. Neurological: General: No focal deficit present. Mental Status: She is alert and oriented to person, place, and time. Psychiatric: Mood and Affect: Mood normal. Behavior: Behavior normal. Last Recorded Vitals Blood pressure 118/77, pulse 97, temperature 36.5 C (97.7 F), temperature source Temporal, resp. rate 18, height 1.561 m (5' 1.46 ), weight 76.9 kg (169 lb 8.5 oz), SpO2 98 %. Intake/Output last 3 Shifts: No intake/output data recorded. Assessment/Plan Principal Problem: Multiple myeloma not having achieved remission (CMS/HCC) Mojgan Pérez is a 68 y.o. female with PMH of HTN, DMII, HLD, fibromyalgia, neuropathy, GERD, COPD,aortic stenosis, aortic aneurysm, KAPADIA, liver cirrhosis, and refractory MM s/p multiple lines of therapy who is now a direct admit for 2nd ramp up of Teclistamab due to treatment hold duration. ONC: #High risk multiple myeloma light chain disease with complex karyotype, multiple relapsed -[id number] Observation -2019 Palliative XRT both hips 800 cGy -04/10/2020 Velcade dex jennifer -Marrow 2020 gain 1q and deletion 13q. -07/31/2021 Radiation to soff tissue area of hip 3000 cGray -08/30/2021 Jennifer rev -12/2021 considered not a candidate for transplant (pancytopenia - liver cirrhosis) -12/2021 Jennifer/Pomalidomide -marrow suppression -07/2022 carfilzomib - cyclophosphamide marrow suppression -Marrow 05/2023: 1q+, 4p-, 13q/-13, 14q- and 16q- -07/23/23: IgG 522, IgM 36, IgA 36, KFLC 1.34, LFLC 35.95 -s/p Teclistamab ramp up C1D1 on 08/04/23; complicated by grade-I CRS (fevers) and ICANS (suzanna ICE score 8/10) -C2D1 teclistamab weekly (08/17/23, 08/25/23, 09/01/23, 09/08/23) -09/08/23 K/L ratio 0.01; IgG 338. -C3D1 teclisitimab weekly beginning 09/15/23, never started due to Covid + on 09/12/23, subsequent sinusitis -11/17/23 Teclistimab held since September (09/12/23) due to Covid with prolonged recovery. Ready foradmission to resume teclistimab. Requires 2nd ramp up due to treatment hold duration. -11/17/23 IgG 526, IgA <7, IgM <5. K<0.08, L<0.17. SPEP WNL. -2nd teclistamab ramp up C1D1 started on 11/18/23 at 2100 CRS Monitoring: -Ferritin: 35 (11/19) -CRP: 0.38 (11/19) -Fibrinogen: 221 (11/19) -ICE Score: 10/10 (11/19) HEME: #Pancytopenia, secondary to disease, treatment, hypersplenism -Transfuse to keep hgb>7, plt> 10 -No signs of bleeding or DIC on admission #chronic BLE swelling, R>L -No h/o DVT -Swelling is a chronic issue r/t R knee surgery, R fibula fracture and chronic R hip pain. FEN/GI -Admission weight: 77.7 kg -Low pathogen diet -cont home potassium 10mEq daily -Home Omeprazole continued as Protonix #opioid induced constipation - miralax prn, anusha-colace prn #h/o KAPADIA, liver cirrhosis -LFTs stable on admission -Daily LFT monitoring ID -Ppx: Acyclovir 400mg BID, Bactrim MWF -Afebrile on admit #hx recent COVID infxn (Sep 2023) s/p paxlovid CARDS -ECHO (11/2022): LVEF 55-60%. Doppler measurements with impaired left ventricular relaxation. #h/o Aortic aneurysm -Follows with cardiology outpatient #HTN -Cont home Carvedilol 12.5mg BID -Cont home Lisinopril 5mg qd #HLD -Cont home Atorvastatin ENDO #DMII -Continue home Metfomin -Start mild SSI on admit MISC #Neoplasm Related Pain -Cont home Oxycodone IR 10mg q6hr PRN #Peripheral Neuropathy -Continue home Gabapentin 100mg 1 to 2 capsules PO BID (ordered as 100mg BID and 100mg BID prn) confirmed with pharmD -Continue Duloxetine 60mg qd DISPO Full code, confirmed on admit Oncologist: Dr. Lindquist Access: Pilo Fernandez Patient seen, examined, discussed with Dr. Juan Antonio Clemons PA-C Associated attestation - Theresa Romano MD PhD - 11/22/2023 4:13 PM EST This is a shared visit. I have reviewed the Advanced Practice Provider's encounter note, approve the Advanced Practice Provider's documentation, and provide the following additional information from my personal encounter. 68 yo F with [employer] MM, not a transplant candidate due to liver cirrhosis. Admitted for teclistamab restart up after holding tx for COVID infection. VS, labs, medications reviewed. PE remarkable for overweight, elderly woman in NAD. RRR, CTAB, softabdomen, euvolemic. PLAN: - Day 2 teclistamab - ACV, Bactrim ppx - Follow up with Dr. KAN after d/x * Jessica Grove RN - 11/19/2023 4:03 PM EST 11/19/23 1603 Discharge Planning Living Arrangements Children Support Systems Children;Family members Assistance Needed none Home or Post Acute Services None Patient expects to be discharged to: home Does the patient need discharge transport arranged? No Financial Resource Strain How hard is it for you to pay for the very basics like food, housing, medical care, and heating? Not very Housing Stability In the last 12 months, was there a time when you were not able to pay the mortgage or rent on time?N In the last 12 months, how many places have you lived? 1 In the last 12 months, was there a time when you did not have a steady place to sleep or slept in ashelter (including now)? N Transportation Needs In the past 12 months, has lack of transportation kept you from medical appointments or from getting medications? no In the past 12 months, has lack of transportation kept you from meetings, work, or from getting things needed for daily living? No Pt with Multiple Myeloma was admitted for cycle #2 of Teclistamab. She will return to home with mat, Juan J, who she lives with. She has a supportive family. She already has all needed DME at home-cane, walker, shower chair. Her bathroom is within close proximity to her bedroom. She mentioned receiving a bill for $400 from and thought her Medicaid should have covered that. She was instructed to call the financial assistance number on her bill to get that straightened out. She has a mediport. MD is Supa Lindquist. Will continue to follow for any home going needs. * Sandy Bhardwaj PharmD - 11/19/2023 11:57 AM EST Pharmacy Medication History Review Mojgan Pérez is a 68 y.o. female admitted for Multiple myeloma not having achieved remission ([facility]). Pharmacy reviewed the patient's [id number] medications and allergies for accuracy. The list below reflects the updated [employer] list. Comments regarding how patient may be taking medications differently can be found in the Admit Orders Activity Prior to Admission Medications Prescriptions Last Dose Informant Patient Reported? Taking? DULoxetine (Cymbalta) [address] capsule 11/18/2023 Self Yes Yes Sig: Take 1 capsule (60 mg) by mouth once daily. SUMAtriptan (Imitrex) 50 mg tablet Self No PRN Sig: Take 1 tablet (50 mg) by mouth 1 time if needed for migraine. May repeat dose once in 2 hours if no relief. Do not exceed 2 doses in 24 hours. acyclovir (Zovirax) 400 mg tablet 11/18/2023 Self No Yes Sig: Take 1 tablet (400 mg) by mouth 2 times a day. albuterol 90 mcg/actuation inhaler Unknown Self Yes PRN Sig: Inhale 2 puffs every 4 hours if needed for shortness of breath or wheezing. atorvastatin (Lipitor) 80 mg tablet 11/18/2023 Self Yes Yes Sig: Take 1 tablet (80 mg) by mouth once daily. carvedilol (Coreg) 12.5 mg tablet 11/18/2023 Self Yes Yes Sig: Take 1 tablet (12.5 mg) by mouth 2 times a day with meals. cholecalciferol (Vitamin D-3) 125 MCG (5000 UT) capsule 11/18/2023 Self Yes Yes Sig: Take 1 capsule (125 mcg) by mouth once daily. cyanocobalamin, vitamin B-12, 1,000 mcg tablet, sublingual 11/18/2023 Self Yes Yes Sig: Place 1 tablet (1,000 mcg) under the tongue once daily. fluticasone (Flonase) 50 mcg/actuation nasal spray Unknown Self Yes PRN Sig: Administer 1 spray into each nostril once daily as needed for rhinitis. Shake gently. Before first use, prime pump. After use, clean tip and replace cap. gabapentin (Neurontin) 100 mg capsule 11/18/2023 Self Yes Yes Sig: Take 1-2 capsules (100-200 mg) by mouth 2 times a day. OARRS last dispensed 10/22/2023 for 30 day supply lisinopril 5 mg tablet 11/18/2023 Self Yes Yes Sig: Take 1 tablet (5 mg) by mouth once daily. melatonin 1 mg tablet Past Week Self Yes Yes Sig: Take 2 tablets (2 mg) by mouth once daily at bedtime. metFORMIN (Glucophage) 500 mg tablet 11/18/2023 Self Yes Yes Sig: Take 1 tablet (500 mg) by mouth 2 times a day with meals. omeprazole (PriLOSEC) [address] capsule 11/18/2023 Self Yes Yes Sig: Take 1 capsule (40 mg) by mouth once daily. Do not crush or chew. ondansetron ODT (Zofran-ODT) 8 mg disintegrating tablet 11/18/2023 Self Yes PRN Sig: Take 1 tablet (8 mg) by mouth every 8 hours if needed for vomiting or nausea. oxyCODONE (Roxicodone) 10 mg immediate release tablet 11/18/2023 Self Yes PRN Sig: Take 1 tablet (10 mg) by mouth 4 times a day as needed for severe pain (7 - 10). OARRS last dispensed 11/05/2023 for 30 day supply potassium chloride ER (Micro-K) 10 mEq ER capsule 11/18/2023 Self Yes Yes Sig: Take 1 capsule (10 mEq) by mouth once daily. semaglutide (Ozempic) 0.25 mg or 0.5 mg (2 mg/3 mL) pen injector 11/12/2023 Self Yes Yes Sig: Inject 0.5 mg under the skin 1 (one) time per week. On Fridays sulfamethoxazole-trimethoprim (Bactrim DS) 800-160 mg tablet 11/18/2023 Self No Yes Sig: Take 1 tablet by mouth once a day on Thursday, Thursday, and Thursday. Facility-Administered Medications: None The list below reflects the updated allergy list. Please review each documented allergy for additional clarification and justification. Allergies Reviewed by Sandy Bhardwaj PharmD on 11/19/2023 Severity Reactions Comments Latex Medium Hives, Rash Tetracyclines Medium Hives, Rash Adhesive Not Specified Other Antazoline Not Specified Itching Diclofenac Not Specified Hives Erythromycin Not Specified Hives Amoxicillin Low Swelling, Rash Avelox [moxifloxacin] Low Rash Patient declines M2B at discharge. Pharmacy has been updated to [id number] ([place], [place]). Sources used to complete the med history include the outpatient dispense report, OARRS, 11/17 HemOncvisit note, 11/03 [facility] Family Medicine Healthcare Summary, and patient interview (good historian, hadmedication list and was able to confirm medications she is no longer taking and clarify directions). Below are additional concerns with the patient's [employer] list. -Patient stated she also has Levemir 100unit/mL at home and is instructed to use 20-22 units nightly if blood glucose is >150 mg/dL. Patient reports she has not used this in >4 months. Sandy Bhardwaj PharmD [facility] PGY1 At Risk Specialist [facility] Please reach out via [employer] Secure Chat for questions, or if no response call [email or web address] or [employer] documented in this [facility] Work Phone: 1(365) 154-501301-23-2024 Nurse Note* Tawnya Fernandez, RN - 11/24/2023 6:53 AM EST V/s stable overnight. Denied any pain. Her ICE score was 10/10. She was up and ambulating in the hallways during the evening and has been steady on ambulation to the bathroom overnight. [facility]01-23-2024 Nurse Note* Tawnya Fernandez RN - 11/24/2023 6:53 AM EST V/s stable overnight. Denied any pain. Her ICE score was 10/10. She was up and ambulating in the hallways during the evening and has been steady on ambulation to the bathroom overnight. * Tawnya Fernandez RN - 11/23/2023 6:55 AM EST V/s stable overnight. Denied any pain. She received her 3rd dose of teclistamab without difficulty.Her ICE score was 10/10. She has been steady on ambulation to the bathroom and walking in the room.She is currently receiving 2gm of Magnesium for a Mag level of 1.78. * Tawnya Fernandez RN - 11/22/2023 6:42 AM EST V/s stable overnight. She did have some back and leg pain which was relieved by oxycodone earlier in the shift. Her ICE score was 10/10. She should receive her 3rd dose of teclistamab today. She has been steady on ambulation to the bathroom. * Clementina Benito RN - 11/18/2023 9:00 PM EST Late Entry Patient received dose #1 teclistamab subcutaneous 11/18/23 at 2100. Dose and order double checked with second RN. Baseline ICE score 10/10. Patient premedicated with tylenol, benadryl, and decadron PO. Patient tolerated well documented in this [facility] Work Phone: 1([phone] 110-304801-22-2024 Nurse Note* Tawnya Fernandez RN - 11/23/2023 6:55 AM EST V/s stable overnight. Denied any pain. She received her 3rd dose of teclistamab without difficulty.Her ICE score was 10/10. She has been steady on ambulation to the bathroom and walking in the room.She is currently receiving 2gm of Magnesium for a Mag level of 1.78. [facility] Work Phone: 1([phone] 620-815301-21-2024 Note* Significant Event - Joaquina Cordon RN - 11/22/2023 3:43 PM EST 11/22/23 1542 Prechemo Checklist Has the patient been in the hospital, ED, or urgent care since last date of service N/A Chemo/Immuno Consent Signed Yes Protocol/Indications Verified Yes Confirmed to previous date/time of medication Yes Compared to previous dose Yes All medications are dated accurately Yes Test Negative Not applicable Parameters Met (!) No (per Dr. Romano okay to give regardles of counts) Provider Notified Yes Provider Name Mariah Romano MD Is Patient Proceeding With Treatment? Yes BSA/Weight-Height Verified Yes Dose Calculations Verified Yes [facility]01-21-2024 Nurse Note* Tawnya Fernandez RN - 11/22/2023 6:42 AM EST V/s stable overnight. She did have some back and leg pain which was relieved by oxycodone earlier in the shift. Her ICE score was 10/10. She should receive her 3rd dose of teclistamab today. She has been steady on ambulation to the bathroom. [facility] Work Phone: 1(372) 234-668601-20-2024 Plan of care note* Care Plan - Stella Wall RN - 11/21/2023 3:36 PM EST The clinical goals for the shift include patient will remain HDS this shift Patient with stable VS. Took 1 dose of pain meds later in shift for back pain. No nausea. Up ad kelly. No SOB. Patient remained safe this shift. Stella Wall RN [facility]-20-2024 Plan of care note* Care Plan - Clementina Benito RN - 11/21/2023 6:34 AM EST Problem: Pain Goal: Takes deep breaths with improved pain control throughout the shift Outcome: Progressing Goal: Turns in bed with improved pain control throughout the shift Outcome: Progressing Goal: Walks with improved pain control throughout the shift Outcome: Progressing Goal: Performs ADL's with improved pain control throughout shift Outcome: Progressing Goal: Participates in PT with improved pain control throughout the shift Outcome: Progressing Goal: Free from opioid side effects throughout the shift Outcome: Progressing Goal: Free from acute confusion related to pain meds throughout the shift Outcome: Progressing [facility] Work Phone: [phone]) 952-792201-19-2024 Note* Significant Event - Johny Carter RN - 11/20/2023 9:56 AM EST 11/20/23 0906 Prechemo Checklist Has the patient been in the hospital, ED, or urgent care since last date of service N/A Chemo/Immuno Consent Signed Yes Protocol/Indications Verified Yes Confirmed to previous date/time of medication Yes Compared to previous dose Yes All medications are dated accurately Yes Test Negative Not applicable Parameters Met (!) No (per Dr. Romano ok to give with low platelet count) Provider Notified Yes Provider Name Dr. Juan Antonio MD Is Patient Proceeding With Treatment? Yes BSA/Weight-Height Verified Yes Dose Calculations Verified Yes [facility]01-19-2024 Plan of care note* Care Plan - Clementina Benito RN - 11/20/2023 6:14 AM EST Problem: Pain Goal: Takes deep breaths with improved pain control throughout the shift Outcome: Progressing Goal: Turns in bed with improved pain control throughout the shift Outcome: Progressing Goal: Walks with improved pain control throughout the shift Outcome: Progressing Goal: Performs ADL's with improved pain control throughout shift Outcome: Progressing Goal: Participates in PT with improved pain control throughout the shift Outcome: Progressing Goal: Free from opioid side effects throughout the shift Outcome: Progressing Goal: Free from acute confusion related to pain meds throughout the shift Outcome: Progressing The patient's goals for the shift include [facility] Work Phone: [phone] 774-997401-17-2024 Nurse Note* Clementina Benito RN - 11/18/2023 9:00 PM EST Late Entry Patient received dose #1 teclistamab subcutaneous 11/18/23 at 2100. Dose and order double checked with second RN. Baseline ICE score 10/10. Patient premedicated with tylenol, benadryl, and decadron PO. Patient tolerated well [facility]-17-2024 Plan of care note* Care Plan - Natalee Rascon RN - 11/18/2023 7:46 PM EST Patient afebrile. Vitals stable. Labs drawn. Parameters not met. Doctors okay with going ahead withchemo. Will continue to monitor [facility] Work Phone: [phone] 821-148501-17-2024 Hospital Note* Hospital Course - MATT Starr - 11/18/2023 6:29 PM EST Mojgan Pérez is a 68 y.o. female with PMH of HTN, DMII, HLD, fibromyalgia, neuropathy, GERD, COPD,aortic stenosis, aortic aneurysm, KAPADIA, liver cirrhosis, and refractory MM s/p multiple lines of therapy who is a direct admit for 2nd ramp up of Teclistamab due to treatment hold duration. Hospital course uncomplicated. Patient discharged to home. Ppx: ACV, bactrim Access: R mediport Follow up: - 11/27/23: follow up with Lisette Perkins + infusion appt Patient was due to receive IVIG in [place] with Dr. Fabiola Marinelli however Dr. Cotton discussed delaying treatment at this time and patient verbalized understanding Med Rec reviewed with pharmD at discharge M2B delivered [facility] Work Phone: [phone] 981-374101-17-2024 History and physical note* Garima Clemons PA-C - 11/18/2023 2:24 PM EST History Of Present Illness Mojgan Pérez is a 68 y.o. female with PMH of HTN, DMII, HLD, fibromyalgia, neuropathy, GERD, COPD,aortic stenosis, aortic aneurysm, KAPADIA, liver cirrhosis, and refractory MM s/p multiple lines of therapy who is now a direct admit for 2nd ramp up of Teclistamab due to treatment hold duration. Patient overall feeling well, no new complaints. Endorses chronic leg pain c/w prior. Endorses someopioid induced constipation, c/w prior. Appetite fine, takes zofran 2-3x/day to prevent nausea, no vomiting. No KRISHNA recently, last KRISHNA in September and sumatriptan worked well to relieve it. Reports minimal residual cough with occasional clear to yellow phlegm. Gait intact at baseline. Denies F/C, CP,SOB, abd pain, sick contacts, rashes, bleeding. Past Medical History She has a past medical history of Aortic aneurysm (CMS/HCC), Aortic stenosis, COPD (chronic obstructive pulmonary disease) (CMS/HCC), Diabetes mellitus (CMS/HCC), Fibromyalgia, GERD (gastroesophagealreflux disease), HLD (hyperlipidemia), Hypertension, Iron deficiency, Liver disease, KAPADIA (nonalcoho lic steatohepatitis), and Neuropathy. Surgical History She has a past surgical history that includes Appendectomy; Cholecystectomy; Hysterectomy; Hernia repair; Carpal tunnel release (Bilateral); Elbow surgery (Bilateral); and Knee arthroscopy w/ meniscal repair (Bilateral). Oncology History Overview Note Referral from Dr. Marinelli at [facility]. MGUS since 2005 Followed at [facility] by Dr. Kumari, and then Dr. Cummings. [...] both hips 800 cGy 04/10/2020 Velcade dex Jennifer 07/31/2021 Radiation to soff tissue area of hip 3000 cGray 08/30/2021 Jennifer Rev 12/2021 Not a candidate for transplant (pancytopenia/liver cirrhosis) 12/2021 Jennifer Pomalidomide ->marrow suppression 07/2022 carfilzomib cyclophosphamide -> marrow suppression 05/24 Bmbx small percentage of plasma cells; hypocellular. Since the marrow was obtained in what waspossibly radiation field this may not be entirely premium service representative. Also clonal evolution in the marrow with the most recent marrow showing additional cytogenetic abnormalities. 07/23/23 Restaging labs: free lambda light chain 35.95 mg/dL (up from 5.65 mg/dL in December 2022) and free-lambda M-spike of 0.1 g/dL Myeloma responding (lambda chains <0.17) 07/23/23 Restaging labs: free lambda light chain 35.95 mg/dL (up from 5.65 mg/dL in December 2022) and free-lambda M-spike of 0.1 g/dL Teclistamab ramp-up (08/04-08/06-08/09/23): complicated grade-I CRS (fevers) and ICANS (suzanna ICE score 8/10) C2D1 teclistamab weekly (08/17/23, 08/25/23, 09/01/23, 09/08/23). Changed threshold notification forplt <35. 09/08/23 K/L ratio 0.01; IgG 338. SPEP pending. C3D1 teclisitimab weekly beginning 09/15/23- held due to Covid. 09/08/23 SPEP -no M protein 09/29/23 K/L chain ratio unable to calculate 11/17/23 IgG 526, IgA <7, IgM <5. SPEP and K/L chain ratio pending Multiple myeloma ([facility]/HCC) 08/03/2023 Initial Diagnosis Multiple myeloma ([facility]) 08/04/2023 - 09/08/2023 Chemotherapy Teclistamab ramp-up (08/04-08/06-08/09/23): complicated grade-I CRS (fevers) and ICANS (suzanna ICE score 8/10) C2D1 teclistamab weekly (08/17/23, 08/25/23, 09/01/23, 09/08/23). Changed threshold notification for plt <35. 09/08/23 K/L ratio 0.01; IgG 338. SPEP pending. C3D1 teclisitimab weekly beginning 09/15/23. (Held 09/15, 09/22 09/29 12 due Covid + on 09/12/23. Treated with Paxlovid in [place] Plan to reassess and proceed with C3D1 with ongoing resolution of sx. Teclistamab (Weekly), 28 Day Cycles 11/18/2023 - Chemotherapy Teclistamab (Weekly), 28 Day Cycles Multiple myeloma not having achieved remission (CMS/HCC) 10/20/2023 Initial Diagnosis Multiple myeloma not having achieved remission ([facility]) Family History Mom - cancer Dad - CAD, cancer Pat grandma - cancer Mat grandma - leukemia Sister - breast cancer Brother - lung cancer Social History She reports that she quit smoking about 20 years ago. Her smoking use included cigarettes. She started smoking about 47 years ago. She has a 78.00 pack-year smoking history. She has been exposed to tobacco smoke. She has never used smokeless tobacco. She reports that she does not currently use alcohol. She reports that she does not use drugs. Allergies Latex, Tetracyclines, Adhesive, Amoxicillin, Antazoline, Diclofenac, Erythromycin, and Avelox [moxifloxacin] Physical Exam Constitutional: General: She is not in acute distress. HENT: Head: Normocephalic and atraumatic. Nose: Nose normal. Mouth/Throat: Mouth: Mucous membranes are moist. Pharynx: Oropharynx is clear. Eyes: Extraocular Movements: Extraocular movements intact. Pupils: Pupils are equal, round, and reactive to light. Cardiovascular: Rate and Rhythm: Normal rate and regular rhythm. Pulmonary: Effort: Pulmonary effort is normal. No respiratory distress. Breath sounds: Normal breath sounds. Abdominal: General: Bowel sounds are normal. Palpations: Abdomen is soft. Tenderness: There is no abdominal tenderness. Hernia: A hernia (abdominal, hypogastric region) is present. Musculoskeletal: General: Normal range of motion. Cervical back: Normal range of motion. Skin: General: Skin is warm and dry. Neurological: General: No focal deficit present. Mental Status: She is alert and oriented to person, place, and time. Psychiatric: Mood and Affect: Mood normal. Behavior: Behavior normal. Last Recorded Vitals Blood pressure 135/82, pulse 80, temperature 36.8 C (98.2 F), temperature source Temporal, resp. rate 18, height 1.561 m (5' 1.46 ), weight 77.7 kg (171 lb 4.8 oz), SpO2 98 %. Assessment/Plan Principal Problem: Multiple myeloma not having achieved remission (CMS/HCC) Mojgan Pérez is a 68 y.o. female with PMH of HTN, DMII, HLD, fibromyalgia, neuropathy, GERD, COPD,aortic stenosis, aortic aneurysm, KAPADIA, liver cirrhosis, and refractory MM s/p multiple lines of therapy who is now a direct admit for 2nd ramp up of Teclistamab due to treatment hold duration. ONC: #High risk multiple myeloma light chain disease with complex karyotype, multiple relapsed -[id number] Observation -2019 Palliative XRT both hips 800 cGy -04/10/2020 Velcade dex jennifer -Marrow 2020 gain 1q and deletion 13q. -07/31/2021 Radiation to soff tissue area of hip 3000 cGray -08/30/2021 Jennifer rev -12/2021 considered not a candidate for transplant (pancytopenia - liver cirrhosis) -12/2021 Jennifer/Pomalidomide -marrow suppression -07/2022 carfilzomib - cyclophosphamide marrow suppression -Marrow 05/2023: 1q+, 4p-, 13q/-13, 14q- and 16q- -07/23/23: IgG 522, IgM 36, IgA 36, KFLC 1.34, LFLC 35.95 -s/p Teclistamab ramp up C1D1 on 08/04/23; complicated by grade-I CRS (fevers) and ICANS (suzanna ICE score 8/10) -C2D1 teclistamab weekly (08/17/23, 08/25/23, 09/01/23, 09/08/23) -09/08/23 K/L ratio 0.01; IgG 338. -C3D1 teclisitimab weekly beginning 09/15/23, never started due to Covid + on 09/12/23, subsequent sinusitis -11/17/23 Teclistimab held since September (09/12/23) due to Covid with prolonged recovery. Ready foradmission to resume teclistimab. Requires 2nd ramp up due to treatment hold duration. -11/17/23 IgG 526, IgA <7, IgM <5. K<0.08, L<0.17. SPEP pending -2nd teclistamab ramp up C1D1 on 11/18/23 CRS Monitoring: -Ferritin: -CRP: -Fibrinogen: -ICE Score: HEME: #Pancytopenia, secondary to disease, treatment, hypersplenism -Transfuse to keep hgb>7, plt> 10 -No signs of bleeding or DIC on admission #chronic BLE swelling, R>L -No h/o DVT -Swelling is a chronic issue r/t R knee surgery, R fibula fracture and chronic R hip pain. FEN/GI -Admission weight: 77.7 kg -Low pathogen diet -cont home potassium 10mEq daily -Home Omeprazole continued as Protonix #opioid induced constipation - miralax prn, anusha-colace prn #h/o KAPADIA, liver cirrhosis -LFTs stable on admission -Daily LFT monitoring ID -Ppx: Acyclovir 400mg BID, Bactrim MWF -Afebrile on admit #hx recent COVID infxn (Sep 2023) s/p paxlovid CARDS -ECHO (11/2022): LVEF 55-60%. Doppler measurements with impaired left ventricular relaxation. #h/o Aortic aneurysm -Follows with cardiology outpatient #HTN -Cont home Carvedilol 12.5mg BID -Cont home Lisinopril 5mg qd #HLD -Cont home Atorvastatin ENDO #DMII -Continue home Metfomin -Start mild SSI on admit MISC #Neoplasm Related Pain -Cont home Oxycodone IR 10mg q6hr PRN #Peripheral Neuropathy -Continue home Gabapentin 100mg BID PRN + 200mg qHS -Continue Duloxetine 60mg qd DISPO Full code, confirmed on admit Oncologist: Dr. Lindquist Access: Pilo Fernandez Patient seen, examined, discussed with Dr. Juan Antonio Clemons PA-C [facility] Work Phone: [phone] 764-605601-17-2024 History and physical note* Garima Clemons PA-C - 11/18/2023 2:24 PM EST History Of Present Illness Mojgan Pérez is a 68 y.o. female with PMH of HTN, DMII, HLD, fibromyalgia, neuropathy, GERD, COPD,aortic stenosis, aortic aneurysm, KAPADIA, liver cirrhosis, and refractory MM s/p multiple lines of therapy who is now a direct admit for 2nd ramp up of Teclistamab due to treatment hold duration. Patient overall feeling well, no new complaints. Endorses chronic leg pain c/w prior. Endorses someopioid induced constipation, c/w prior. Appetite fine, takes zofran 2-3x/day to prevent nausea, no vomiting. No KRISHNA recently, last KRISHNA in September and sumatriptan worked well to relieve it. Reports minimal residual cough with occasional clear to yellow phlegm. Gait intact at baseline. Denies F/C, CP,SOB, abd pain, sick contacts, rashes, bleeding. Past Medical History She has a past medical history of Aortic aneurysm (CMS/HCC), Aortic stenosis, COPD (chronic obstructive pulmonary disease) (CMS/HCC), Diabetes mellitus (CMS/HCC), Fibromyalgia, GERD (gastroesophagealreflux disease), HLD (hyperlipidemia), Hypertension, Iron deficiency, Liver disease, KAPADIA (nonalcoho lic steatohepatitis), and Neuropathy. Surgical History She has a past surgical history that includes Appendectomy; Cholecystectomy; Hysterectomy; Hernia repair; Carpal tunnel release (Bilateral); Elbow surgery (Bilateral); and Knee arthroscopy w/ meniscal repair (Bilateral). Oncology History Overview Note Referral from Dr. Marinelli at [facility]. MGUS since 2005 Followed at [facility] by Dr. Kumari, and [...] both hips 800 cGy 04/10/2020 Velcade dex Jennifer 07/31/2021 Radiation to soff tissue area of hip 3000 cGray 08/30/2021 Jennifer Rev 12/2021 Not a candidate for transplant (pancytopenia/liver cirrhosis) 12/2021 Jennifer Pomalidomide ->marrow suppression 07/2022 carfilzomib cyclophosphamide -> marrow suppression 05/24 Bmbx small percentage of plasma cells; hypocellular. Since the marrow was obtained in what waspossibly radiation field this may not be entirely premium service representative. Also clonal evolution in the marrow with the most recent marrow showing additional cytogenetic abnormalities. 07/23/23 Restaging labs: free lambda light chain 35.95 mg/dL (up from 5.65 mg/dL in December 2022) and free-lambda M-spike of 0.1 g/dL Myeloma responding (lambda chains <0.17) 07/23/23 Restaging labs: free lambda light chain 35.95 mg/dL (up from 5.65 mg/dL in December 2022) and free-lambda M-spike of 0.1 g/dL Teclistamab ramp-up (08/04-08/06-08/09/23): complicated grade-I CRS (fevers) and ICANS (uszanna ICE score 8/10) C2D1 teclistamab weekly (08/17/23, 08/25/23, 09/01/23, 09/08/23). Changed threshold notification forplt <35. 09/08/23 K/L ratio 0.01; IgG 338. SPEP pending. C3D1 teclisitimab weekly beginning 09/15/23- held due to Covid. 09/08/23 SPEP -no M protein 09/29/23 K/L chain ratio unable to calculate 11/17/23 IgG 526, IgA <7, IgM <5. SPEP and K/L chain ratio pending Multiple myeloma ([facility]/HCC) 08/03/2023 Initial Diagnosis Multiple myeloma ([facility]) 08/04/2023 - 09/08/2023 Chemotherapy Teclistamab ramp-up (08/04-08/06-08/09/23): complicated grade-I CRS (fevers) and ICANS (suzanna ICE score 8/10) C2D1 teclistamab weekly (08/17/23, 08/25/23, 09/01/23, 09/08/23). Changed threshold notification for plt <35. 09/08/23 K/L ratio 0.01; IgG 338. SPEP pending. C3D1 teclisitimab weekly beginning 09/15/23. (Held 09/15, 09/22 09/29 12 due Covid + on 09/12/23. Treated with Paxlovid in [place] Plan to reassess and proceed with C3D1 with ongoing resolution of sx. Teclistamab (Weekly), 28 Day Cycles 11/18/2023 - Chemotherapy Teclistamab (Weekly), 28 Day Cycles Multiple myeloma not having achieved remission ([facility]/HCC) 10/20/2023 Initial Diagnosis Multiple myeloma not having achieved remission ([facility]) Family History Mom - cancer Dad - CAD, cancer Pat grandma - cancer Mat grandma - leukemia Sister - breast cancer Brother - lung cancer Social History She reports that she quit smoking about 20 years ago. Her smoking use included cigarettes. She started smoking about 47 years ago. She has a 78.00 pack-year smoking history. She has been exposed to tobacco smoke. She has never used smokeless tobacco. She reports that she does not currently use alcohol. She reports that she does not use drugs. Allergies Latex, Tetracyclines, Adhesive, Amoxicillin, Antazoline, Diclofenac, Erythromycin, and Avelox [moxifloxacin] Physical Exam Constitutional: General: She is not in acute distress. HENT: Head: Normocephalic and atraumatic. Nose: Nose normal. Mouth/Throat: Mouth: Mucous membranes are moist. Pharynx: Oropharynx is clear. Eyes: Extraocular Movements: Extraocular movements intact. Pupils: Pupils are equal, round, and reactive to light. Cardiovascular: Rate and Rhythm: Normal rate and regular rhythm. Pulmonary: Effort: Pulmonary effort is normal. No respiratory distress. Breath sounds: Normal breath sounds. Abdominal: General: Bowel sounds are normal. Palpations: Abdomen is soft. Tenderness: There is no abdominal tenderness. Hernia: A hernia (abdominal, hypogastric region) is present. Musculoskeletal: General: Normal range of motion. Cervical back: Normal range of motion. Skin: General: Skin is warm and dry. Neurological: General: No focal deficit present. Mental Status: She is alert and oriented to person, place, and time. Psychiatric: Mood and Affect: Mood normal. Behavior: Behavior normal. Last Recorded Vitals Blood pressure 135/82, pulse 80, temperature 36.8 C (98.2 F), temperature source Temporal, resp. rate 18, height 1.561 m (5' 1.46 ), weight 77.7 kg (171 lb 4.8 oz), SpO2 98 %. Assessment/Plan Principal Problem: Multiple myeloma not having achieved remission (CMS/HCC) Mojgan Pérez is a 68 y.o. female with PMH of HTN, DMII, HLD, fibromyalgia, neuropathy, GERD, COPD,aortic stenosis, aortic aneurysm, KAPADIA, liver cirrhosis, and refractory MM s/p multiple lines of therapy who is now a direct admit for 2nd ramp up of Teclistamab due to treatment hold duration. ONC: #High risk multiple myeloma light chain disease with complex karyotype, multiple relapsed -[id number] Observation -2019 Palliative XRT both hips 800 cGy -04/10/2020 Velcade dex jennifer -Marrow 2020 gain 1q and deletion 13q. -07/31/2021 Radiation to soff tissue area of hip 3000 cGray -08/30/2021 Jennifer rev -12/2021 considered not a candidate for transplant (pancytopenia - liver cirrhosis) -12/2021 Jennifer/Pomalidomide -marrow suppression -07/2022 carfilzomib - cyclophosphamide marrow suppression -Marrow 05/2023: 1q+, 4p-, 13q/-13, 14q- and 16q- -07/23/23: IgG 522, IgM 36, IgA 36, KFLC 1.34, LFLC 35.95 -s/p Teclistamab ramp up C1D1 on 08/04/23; complicated by grade-I CRS (fevers) and ICANS (suzanna ICE score 8/10) -C2D1 teclistamab weekly (08/17/23, 08/25/23, 09/01/23, 09/08/23) -09/08/23 K/L ratio 0.01; IgG 338. -C3D1 teclisitimab weekly beginning 09/15/23, never started due to Covid + on 09/12/23, subsequent sinusitis -11/17/23 Teclistimab held since September (09/12/23) due to Covid with prolonged recovery. Ready foradmission to resume teclistimab. Requires 2nd ramp up due to treatment hold duration. -11/17/23 IgG 526, IgA <7, IgM <5. K<0.08, L<0.17. SPEP pending -2nd teclistamab ramp up C1D1 on 11/18/23 CRS Monitoring: -Ferritin: -CRP: -Fibrinogen: -ICE Score: HEME: #Pancytopenia, secondary to disease, treatment, hypersplenism -Transfuse to keep hgb>7, plt> 10 -No signs of bleeding or DIC on admission #chronic BLE swelling, R>L -No h/o DVT -Swelling is a chronic issue r/t R knee surgery, R fibula fracture and chronic R hip pain. FEN/GI -Admission weight: 77.7 kg -Low pathogen diet -cont home potassium 10mEq daily -Home Omeprazole continued as Protonix #opioid induced constipation - miralax prn, anusha-colace prn #h/o KAPADIA, liver cirrhosis -LFTs stable on admission -Daily LFT monitoring ID -Ppx: Acyclovir 400mg BID, Bactrim MWF -Afebrile on admit #hx recent COVID infxn (Sep 2023) s/p paxlovid CARDS -ECHO (11/2022): LVEF 55-60%. Doppler measurements with impaired left ventricular relaxation. #h/o Aortic aneurysm -Follows with cardiology outpatient #HTN -Cont home Carvedilol 12.5mg BID -Cont home Lisinopril 5mg qd #HLD -Cont home Atorvastatin ENDO #DMII -Continue home Metfomin -Start mild SSI on admit MISC #Neoplasm Related Pain -Cont home Oxycodone IR 10mg q6hr PRN #Peripheral Neuropathy -Continue home Gabapentin 100mg BID PRN + 200mg qHS -Continue Duloxetine 60mg qd DISPO Full code, confirmed on admit Oncologist: Dr. Lindquist Access: Pilo Fernandez Patient seen, examined, discussed with BRENDA FormanC [facility] Work Phone: [phone] 512-154301-16-2024 Evaluation + Plan note* Assessment & Plan Note - MATT Mendosa - 11/17/2023 10:00 AM ESTAssociated Problem(s): Immunosuppressed status (CMS/HCC) Infection prophylaxis VZV: Continue acyclovir 400 mg PO BID PJP: Continue trimethoprim-sulfamethoxazole 800-160 mg PO 3x weekly Hypogammaglobulinemia IVIG given 09/22/23 and 10/29/23 ([facility]) [facility] Work Phone: [phone] Miscellaneous Notes* Assessment & Plan Note - MATT Mendosa - 11/17/2023 10:00 AM ESTAssociated Problem(s): Immunosuppressed status (CMS/HCC) Infection prophylaxis VZV: Continue acyclovir 400 mg PO BID PJP: Continue trimethoprim-sulfamethoxazole 800-160 mg PO 3x weekly Hypogammaglobulinemia IVIG given 09/22/23 and 10/29/23 ([facility]) documented in this [facility] Work Phone: [phone]) 863-763201-16-2024 History of Present illness Narrative* MATT Mendosa - 11/17/2023 8:30 AM EST Patient ID: Mojgan Pérez is a 68 y.o. female. Referring Physician: ONC Dr Lindquist Primary Care Provider: Fabiola Marinelli MD Assessment/Plan 11/17/23 Teclistimab held since September (09/12/23) due to Covid with prolonged recovery. Ready for admission to resume teclistimab. Requires 2nd ramp up due to treatment hold duration. Oncology History Overview Note Referral from Dr. Marinelli at [facility]. MGUS since 2005 Followed at [facility] by Dr. Kmuari, and then Dr. Cummings. 2005 Initial bone [...] both hips 800 cGy 04/10/2020 Velcade dex Jennifer 07/31/2021 Radiation to soff tissue area of hip 3000 cGray 08/30/2021 Jennifer Rev 12/2021 Not a candidate for transplant (pancytopenia/liver cirrhosis) 12/2021 Jennifer Pomalidomide ->marrow suppression 07/2022 carfilzomib cyclophosphamide -> marrow suppression 05/24 Bmbx small percentage of plasma cells; hypocellular. Since the marrow was obtained in what waspossibly radiation field this may not be entirely premium service representative. Also clonal evolution in the marrow with the most recent marrow showing additional cytogenetic abnormalities. 07/23/23 Restaging labs: free lambda light chain 35.95 mg/dL (up from 5.65 mg/dL in December 2022) and free-lambda M-spike of 0.1 g/dL Myeloma responding (lambda chains <0.17) 07/23/23 Restaging labs: free lambda light chain 35.95 mg/dL (up from 5.65 mg/dL in December 2022) and free-lambda M-spike of 0.1 g/dL Teclistamab ramp-up (08/04-08/06-08/09/23): complicated grade-I CRS (fevers) and ICANS (suzanna ICE score 8/10) C2D1 teclistamab weekly (08/17/23, 08/25/23, 09/01/23, 09/08/23). Changed threshold notification forplt <35. 09/08/23 K/L ratio 0.01; IgG 338. SPEP pending. C3D1 teclisitimab weekly beginning 09/15/23- held due to Covid. 09/08/23 SPEP -no M protein 09/29/23 K/L chain ratio unable to calculate 11/17/23 IgG 526, IgA <7, IgM <5. SPEP and K/L chain ratio pending Multiple myeloma ([facility]) 08/03/2023 Initial Diagnosis Multiple myeloma ([facility]) 08/04/2023 - Chemotherapy Teclistamab ramp-up (08/04-08/06-08/09/23): complicated grade-I CRS (fevers) and ICANS (suzanna ICE score 8/10) C2D1 teclistamab weekly (08/17/23, 08/25/23, 09/01/23, 09/08/23). Changed threshold notification for plt <35. 09/08/23 K/L ratio 0.01; IgG 338. SPEP pending. C3D1 teclisitimab weekly beginning 09/15/23. (Held 09/15, 09/22 09/29 12 due Covid + on 09/12/23. Treated with Paxlovid in [place] Plan to reassess and proceed with C3D1 with ongoing resolution of sx. Teclistamab (Weekly), 28 Day Cycles 11/18/2023 - Chemotherapy Teclistamab (Weekly), 28 Day Cycles Multiple myeloma not having achieved remission ([facility]) 10/20/2023 Initial Diagnosis Multiple myeloma not having achieved remission ([facility]) Problem List Items Addressed This Visit ICD-10-CM Immunosuppressed status ([facility]) D84.9 Infection prophylaxis VZV: Continue acyclovir 400 mg PO BID PJP: Continue trimethoprim-sulfamethoxazole 800-160 mg PO 3x weekly Hypogammaglobulinemia IVIG given 09/22/23 and 10/29/23 ([facility]) Multiple myeloma not having achieved remission ([facility]) - Primary C90.00 Relevant Orders CBC and Auto Differential Comprehensive Metabolic Panel [place]/Lambda Free Light Chain, Serum Serum Protein Electrophoresis Immunoglobulins (IgG, IgA, IgM) Lactate dehydrogenase Uric acid Subjective History of Present Illness: Mrs Pérez presents to the clinic with her daughters, Tana. Ready to restart treatment. Energy level fair. Better energy level with treatment. Appetite ok. Takes Zofran benoit nausea 2x day. Mild residual cough with oocas clear to yellow phlegm. KRISHNA med helps. Only taken 1 time. Review of Systems Constitutional: Positive for fatigue. HENT: Negative. Eyes: Negative. Respiratory: Positive for cough. Cardiovascular: Negative. Gastrointestinal: Negative. Endocrine: Negative. Genitourinary: Negative. Musculoskeletal: Negative. Chronic leg pain. Skin: Negative. Neurological: Negative. Hematological: Bruises/bleeds easily. Psychiatric/Behavioral: Positive for sleep disturbance. Objective Physical Exam Vitals reviewed. Constitutional: Appearance: Normal appearance. HENT: Head: Normocephalic and atraumatic. Nose: Nose normal. Mouth/Throat: Mouth: Mucous membranes are moist. Eyes: Pupils: Pupils are equal, round, and reactive to light. Cardiovascular: Rate and Rhythm: Normal rate and regular rhythm. Pulses: Normal pulses. Heart sounds: Normal heart sounds. Pulmonary: Effort: Pulmonary effort is normal. Breath sounds: Normal breath sounds. Abdominal: General: Abdomen is flat. Bowel sounds are normal. Palpations: Abdomen is soft. Musculoskeletal: General: Normal range of motion. Cervical back: Normal range of motion. Skin: General: Skin is warm and dry. Comments: R sided Mediport Neurological: General: No focal deficit present. Mental Status: She is alert and oriented to person, place, and time. Psychiatric: Mood and Affect: Mood normal. [facility] Work Phone: [phone]) [phone] Evaluation note* Encounter Date Diagnosis Assessment Notes Treatment Notes Treatment Clinical Notes Nov, Cancer associated pain (ICD-10 - G89.3) OARRS reviewed, consistent with Rx [employer] Other 12-06-2023 Evaluation note* Encounter Date Diagnosis Assessment Notes Treatment Notes Treatment Clinical Notes Oct, Cancer associated pain (ICD-10 - G89.3) OARRS reviewed, consistent with Rx. [facility] [employer] Other 12-05-2023 History of Present illness Narrative* Supa Lindquist MD PhD - 10/06/2023 10:30 AM EST HEMATOLOGY/ONCOLOGY CLINIC NOTE HPI: Had COVID in September 2023 Clinically nearly resolved. Still with mild cough Energy good Oncology History and Treatment synopsis Oncology History Overview Note Referral from Dr. Marinelli at [facility]. MGUS since 2005 Followed at [facility] by Dr. Kumari, and then Dr. Cummings. 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 05/2023 Bmbx1q+, 4p-, 13q/-13, 14q- and 16q- Observation 2016->2019 Treatment 2020 Palliative XRT both hips 800 cGy 04/10/2020 Velcade dex Jennifer 07/31/2021 Radiation to soff tissue area of hip 3000 cGray 08/30/2021 Jennifer Rev 12/2021 Not a candidate for transplant (pancytopenia/liver cirrhosis) 12/2021 Jennifer Pomalidomide ->marrow suppression 07/2022 carfilzomib cyclophosphamide -> marrow suppression 05/24 Bmbx small percentage of plasma cells; hypocellular. Since the marrow was obtained in what waspossibly radiation field this may not be entirely premium service representative. Also clonal evolution in the marrow with the most recent marrow showing additional cytogenetic abnormalities. 07/23/23 Restaging labs: free lambda light chain 35.95 mg/dL (up from 5.65 mg/dL in December 2022) and free-lambda M-spike of 0.1 g/dL Myeloma responding (lambda chains <0.17) Multiple myeloma (CMS/HCC) 08/03/2023 Initial Diagnosis Multiple myeloma (CMS/HCC) 08/04/2023 - Chemotherapy Teclistamab ramp-up (08/04-08/06-08/09/23): complicated grade-I CRS (fevers) and ICANS (suzanna ICE score 8/10) C2D1 teclistamab weekly (08/17/23, 08/25/23, 09/01/23, 09/08/23). Changed threshold notification forplt <35. 09/08/23 K/L ratio 0.01; IgG 338. SPEP pending. C3D1 teclisitimab weekly beginning 09/15/23. (Held 09/15, 09/22 and 09/29 due to Covid + on 09/12/23. Treated with paxlovid in [place] Plan to reassess and proceed with C3D1 with ongoing resolution of sx. IgG level <400. 1st dose IVIG given 09/22/23. Chest tightness during infusion resolved with rescue meds. 10/07 Covid Resolved. Teclistamab (Weekly), 28 Day Cycles SH: Social History Tobacco Use Smoking status: Former Packs/day: 3.00 Years: 15.00 Additional pack years: 0.00 Total pack years: 45.00 Types: Cigarettes Start date: 11/02/1976 Quit date: 08/02/2003 Years since quittin.1 Passive exposure: Past Smokeless tobacco: Never Substance Use Topics Alcohol use: Not Currently reports no history of drug use. CURRENT MEDS: Current Outpatient Medications on File Prior to Visit Medication Sig Dispense Refill acyclovir (Zovirax) 400 mg tablet Take 1 tablet (400 mg) by mouth 2 times a day. 180 tablet 0 albuterol 90 mcg/actuation inhaler Inhale 2 puffs every 6 hours if needed for shortness of breath or wheezing. atorvastatin (Lipitor) 80 mg tablet Take 1 tablet (80 mg) by mouth once daily. carvedilol (Coreg) 12.5 mg tablet Take 1 tablet (12.5 mg) by mouth 2 times a day with meals. cyanocobalamin, vitamin B-12, 1,000 mcg tablet, sublingual Place 1 tablet (1,000 mcg) under the tongue once daily. fluticasone (Flonase) 50 mcg/actuation nasal spray Administer 1 spray into each nostril once daily as needed for rhinitis. Shake gently. Before first use, prime pump. After use, clean tip and replacecap. gabapentin (Neurontin) 100 mg capsule Take 4 capsules (400 mg) by mouth 3 times a day as needed (Neuropathy). lisinopril 5 mg tablet Take 1 tablet (5 mg) by mouth once daily. metFORMIN (Glucophage) 500 mg tablet Take 1 tablet (500 mg) by mouth 2 times a day with meals. omeprazole (PriLOSEC) [address] capsule Take 1 capsule (40 mg) by mouth once daily. Do not crush or chew. ondansetron ODT (Zofran-ODT) 8 mg disintegrating tablet Take 1 tablet (8 mg) by mouth every 8 hoursif needed for vomiting or nausea. oxyCODONE (Roxicodone) 10 mg immediate release tablet Take 1 tablet (10 mg) by mouth 4 times a day as needed for severe pain (7 - 10). potassium chloride ER (Micro-K) 10 mEq ER capsule Take 1 capsule (10 mEq) by mouth once daily. semaglutide (Ozempic) 0.25 mg or 0.5 mg (2 mg/3 mL) pen injector Inject 0.5 mg under the skin 1 (one) time per week. On Thursday sulfamethoxazole-trimethoprim (Bactrim DS) 800-160 mg tablet Take 1 tablet by mouth once a day on Thursday, Thursday, and Thursday. 12 tablet 0 SUMAtriptan (Imitrex) 50 mg tablet Take 1 tablet (50 mg) by mouth 1 time if needed for migraine. May repeat dose once in 2 hours if no relief. Do not exceed 2 doses in 24 hours. 4 tablet 0 [] benzonatate (Tessalon) 200 mg capsule Take 1 capsule (200 mg) by mouth 3 times a day as needed for cough for up to 7 days. Do not crush or chew. 20 capsule 0 DULoxetine (Cymbalta) [address] capsule Take 1 capsule (60 mg) by mouth once daily. No current facility-administered medications on file prior to visit. PHYSICAL EXAM: BP 119/61 (BP Location: Left arm, Patient Position: Sitting, BP Cuff Size: Large adult) Pulse 81 Temp 37.1 C (98.8 F) (Temporal) Resp 20 Wt 77.7 kg (171 lb 4.4 oz) SpO2 99% BMI 31.96 kg/m KPS: 90 Physical Exam LAB DATA: No components found for: CBC Lab Results Component Value Date WBC 2.1 (L) 09/22/2023 WBC 1.8 (L) 09/08/2023 WBC 1.6 (L) 09/01/2023 WBC 1.7 (L) 08/25/2023 WBC 1.5 (L) 08/20/2023 Lab Results Component Value Date HGB 10.3 (L) 09/22/2023 HGB 10.0 (L) 09/08/2023 HGB 9.8 (L) 09/01/2023 HGB 9.0 (L) 08/25/2023 HGB 8.4 (L) 08/20/2023 Lab Results Component Value Date PLT 40 (LL) 09/22/2023 PLT 38 (LL) 09/08/2023 PLT 42 (L) 09/01/2023 PLT 44 (L) 08/25/2023 PLT 31 (LL) 08/20/2023 Lab Results Component Value Date GLUCOSE 138 (H) 09/22/2023 CALCIUM 8.7 09/22/2023 NA 141 09/22/2023 K 3.4 (L) 09/22/2023 CO2 26 09/22/2023 CL 106 09/22/2023 BUN 16 09/22/2023 CREATININE 0.64 09/22/2023 Lab Results Component Value Date CREATININE 0.64 09/22/2023 CREATININE 0.48 (L) 09/08/2023 CREATININE 0.56 08/20/2023 CREATININE 0.50 08/17/2023 CREATININE 0.47 (L) 08/14/2023 Lab Results Component Value Date ALT 20 09/22/2023 AST 25 09/22/2023 ALKPHOS 111 09/22/2023 BILITOT 0.8 09/22/2023 Myeloma Labs Lab Results Component Value Date IGG 338 (L) 09/08/2023 IGG 402 (L) 08/17/2023 IGG 522 (L) 07/23/2023 IGG 360 (L) 01/01/2023 IGG 625 (L) 11/21/2021 Lab Results Component Value Date IGA <7 (L) 09/08/2023 IGA 13 (L) 08/17/2023 IGA 36 (L) 07/23/2023 IGA 21 (L) 01/01/2023 IGA 67 (L) 11/21/2021 Lab Results Component Value Date IGM 6 (L) 09/08/2023 IGM 14 (L) 08/17/2023 IGM 36 (L) 07/23/2023 IGM 10 (L) 01/01/2023 IGM 24 (L) 11/21/2021 Lab Results Component Value Date KAPPA <0.08 (L) 09/08/2023 KAPPA 0.10 (L) 08/17/2023 KAPPA 1.34 07/23/2023 KAPPA 0.55 01/01/2023 KAPPA 1.01 11/21/2021 Lab Results Component Value Date LAMBDA <0.17 (L) 09/08/2023 LAMBDA 6.99 (H) 08/17/2023 LAMBDA 35.95 (H) 07/23/2023 LAMBDA 5.65 (H) 01/01/2023 LAMBDA 8.81 (H) 11/21/2021 Lab Results Component Value Date KAPLS 09/08/2023 Comment: One or more analytes used in this calculation is outside of the analytical measurement range. Calculation cannot be performed. KAPLS 0.01 (L) 08/17/2023 ASSESSMENT AND PLAN 1, Multiple Myeloma Multiply relapsed.. Started treatment with teclistamab on 08/03/23 Well tolerated Held for the past weeks b/o covid K/l ratio has declined from 32 --> 6.99 indicating response Lambda has declined to <0.17 Will restart next week 10/13 2. 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 3. COVID - November - resolved. Duration of Visit This is a Established visit. I spent 40 minutes in the care of this patient, including preparing, chart and results review, face time and charting. Supa Lindquist MD, PhD documented in this [facility] Work Phone: 1(325) 281-512911-20-2023 Evaluation note* Encounter Date Diagnosis Assessment Notes Treatment Notes Treatment Clinical Notes Sep, Cancer associated pain (ICD-10 - G89.3) OARRS reviewed, consistent with Rx Sep,Neuropathy (ICD-10 - G62.9) [employer] Other 11-07-2023 History of Present illness Narrative* Lisette Hayden Gregorio, VISUAL MERCH[employer]IS[employer]ALES DEVELOPMENT REPRESENTATIVE - 09/08/2023 10:30 AM EST HEMATOLOGY/ONCOLOGY CLINIC NOTE HPI: Mrs Pérez presents to the clinic with her daughters, Tana and Sima. Overall, she states that she is tolerating treatment well. She reports history of migraine KRISHNA, currently getting KRISHNA 2x week and wonders about taking Nurtec? She is having trouble sleeping at night. She has melatonin at home, but she has not tried it yet. Review of Systems Constitutional: Negative. Energy level better. Steady on feet. Appetite varies. Lost a few pounds. HENT: Negative. Eyes: Negative. Respiratory: Negative. Cardiovascular: Negative. Gastrointestinal: Positive for nausea. Started taking Zofran ac yesterday. Endocrine: Negative. Genitourinary: Negative. Musculoskeletal: Negative. Legs and hands (cancer, arthritis, neuropathy) Skin: Negative. L leg swells on occasion. Irritation L lutheran. Neurological: Positive for headaches. Migraines 2x week. Hematological: Bruises/bleeds easily. Psychiatric/Behavioral: Positive for sleep disturbance. Oncology History and Treatment synopsis Oncology History Overview Note Referral from Dr. Marinelli at [facility]. MGUS since 2005 Followed at [facility] by Dr. Kumari, and [...] both hips 800 cGy 04/10/2020 Velcade dex Jennifer 07/31/2021 Radiation to soff tissue area of hip 3000 cGray 08/30/2021 Jennifer Rev 12/2021 Not a candidate for transplant (pancytopenia/liver cirrhosis) 12/2021 Jennifer Pomalidomide ->marrow suppression 07/2022 carfilzomib cyclophosphamide -> marrow suppression 05/24 Bmbx small percentage of plasma cells; hypocellular. Since the marrow was obtained in what waspossibly radiation field this may not be entirely premium service representative. Also clonal evolution in the [...] SPEP pending. C3D1 teclisitimab weekly beginning 09/15/23. Consider IVIG for IgG level <400. Multiple myeloma ([facility]) 08/03/2023 Initial Diagnosis Multiple myeloma ([facility]) 08/04/2023 - Chemotherapy Teclistamab (Weekly), 28 Day Cycles CURRENT MEDS: Current Outpatient Medications on File Prior to Visit Medication Sig Dispense Refill acyclovir (Zovirax) 400 mg tablet Take 1 tablet (400 mg) by mouth 2 times a day. 180 tablet 0 albuterol 90 mcg/actuation inhaler Inhale 2 puffs every 6 hours if needed for shortness of breath or wheezing. atorvastatin (Lipitor) 80 mg tablet Take 1 tablet (80 mg) by mouth once daily. carvedilol (Coreg) 12.5 mg tablet Take 1 tablet (12.5 mg) by mouth 2 times a day with meals. cyanocobalamin, vitamin B-12, 1,000 mcg tablet, sublingual Place 1 tablet (1,000 mcg) under the tongue once daily. DULoxetine (Cymbalta) [address] capsule Take 1 capsule (60 mg) by mouth once daily. fluticasone (Flonase) 50 mcg/actuation nasal spray Administer 1 spray into each nostril once daily as needed for rhinitis. Shake gently. Before first use, prime pump. After use, clean tip and replacecap. gabapentin (Neurontin) 100 mg capsule Take 4 capsules (400 mg) by mouth 3 times a day as needed (Neuropathy). lisinopril 5 mg tablet Take 1 tablet (5 mg) by mouth once daily. metFORMIN (Glucophage) 500 mg tablet Take 1 tablet (500 mg) by mouth 2 times a day with meals. omeprazole (PriLOSEC) [address] capsule Take 1 capsule (40 mg) by mouth once daily. Do not crush or chew. ondansetron ODT (Zofran-ODT) 8 mg disintegrating tablet Take 1 tablet (8 mg) by mouth every 8 hoursif needed for vomiting or nausea. oxyCODONE (Roxicodone) 10 mg immediate release tablet Take 1 tablet (10 mg) by mouth 4 times a day as needed for severe pain (7 - 10). potassium chloride ER (Micro-K) 10 mEq ER capsule Take 1 capsule (10 mEq) by mouth once daily. semaglutide (Ozempic) 0.25 mg or 0.5 mg (2 mg/3 mL) pen injector Inject 0.5 mg under the skin 1 (one) time per week. On Thursday [DISCONTINUED] fluconazole (Diflucan) 100 mg tablet Take 2 tablets (200 mg) by mouth once daily. 60tablet 0 [DISCONTINUED] sulfamethoxazole-trimethoprim (Bactrim DS) 800-160 mg tablet Take 1 tablet by mouth once a day on Thursday, Thursday, and Thursday. 12 tablet 0 Current Facility-Administered Medications on File Prior to Visit Medication Dose Route Frequency Provider Last Rate Last Admin [DISCONTINUED] heparin flush 100 unit/mL injection 500 Units 500 Units intra- catheter PRN Supa Lindquist MD PhD 500 Units at 09/08/23 1334 Physical Exam Vitals reviewed. Constitutional: Appearance: Normal appearance. HENT: Head: Normocephalic and atraumatic. Nose: Nose normal. Mouth/Throat: Mouth: Mucous membranes are moist. Comments: Upper dentures Eyes: Pupils: Pupils are equal, round, and reactive to light. Cardiovascular: Rate and Rhythm: Normal rate and regular rhythm. Pulses: Normal pulses. Heart sounds: Normal heart sounds. Pulmonary: Effort: Pulmonary effort is normal. Breath sounds: Normal breath sounds. Abdominal: General: Abdomen is flat. Bowel sounds are normal. Palpations: Abdomen is soft. Musculoskeletal: General: Normal range of motion. Skin: General: Skin is warm and dry. Neurological: General: No focal deficit present. Mental Status: She is alert and oriented to person, place, and time. Psychiatric: Mood and Affect: Mood normal. ASSESSMENT AND PLAN Multiple Myeloma Multiple lines of therapy Started treatment with teclistamab on 08/03/23. So far well tolerated. Restaging labs: improvement in Hgb (8->10), Plt (10s->40s). 07/23/23 [facility] 35.95; 08/17/23 6.99. Anticipate transition back to Dr Marinelli after the first of the year. 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 Infection prophylaxis Bactrim Acyclovir Insomnia Try melatonin prn Nausea Zofran before meals prn KRISHNA/migraine Pharmacist recommendation: Imitrex 50mg onset of symptoms; may repeat in 2 hours if symptoms persist. Neuropathy Cont duloxetine, gabapentin Takes oxycodone bid Cirrhosis Avoid hepatotoxic meds RTC Weekly. documented in this [facility] Work Phone: [phone] History of Present illness Narrative* Tk Camp PA-C - 08/17/2023 10:00 AM EDT Patient ID: Mojgan Pérez is a 67 y.o. female. Diagnosis: [Associated problem not found], No matching staging information was found for the patient., Treatment: Oncology History Overview Note he has been referred from Dr. Marinelli at [facility]. 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 Kumari, and then Dr. Cummings. 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 Marrow 05/2023 1q+, 4p-, 13q/-13, 14q- and 16q- [id number] Observation 2019 Palliative XRT both hips 800 cGy 04/10/2020 Velcade dex jennifer 07/31/2021 Radiation to soff tissue area of hip 3000 cGray 08/30/2021 Jennifer rev 12/2021 not a candidate for transplant (pancytopenia - liver cirrhosisO 12/2021 Jennifer/ Pomalidomide -marrow suppression 07/2022 carfilzomib - cyclophosphamide marrow suppression Per Dr. Lindquist, [r]ecent marrow [presumably May 2023] shows only a small percentage of plasmacells in hypocellular marrow. Since the marrow was obtained in what was possibly radiation field this may not be entirely premium service representative. There is also clonal evolution in the marrow with the most recent marrow showing additional cytogenetic abnormalities. Most recent myeloma labs (07/23/23) show free lambda light chains of 35.95 mg/dL, up from 5.65 mg/dLin December 2022 free-lambda M-spike of 0.1 g/dL - Teclistamab ramp-up (08/04-08/06-08/09/23): complicated grade-I CRS (fevers) and ICANS (suzanan ICE score 8/10) - C2 teclistamab (08/17/23), planned Multiple myeloma (CMS/HCC) 08/03/2023 Initial Diagnosis Multiple myeloma (CMS/HCC) 08/04/2023 - Chemotherapy Teclistamab (Weekly), 28 Day Cycles Response: Past Medical History: No past medical history on file. Surgical History: No past surgical history on file. Family History: No family history on file. Social History: Social History Tobacco Use Smoking status: Former Packs/day: 3.00 Years: 15.00 Additional pack years: 0.00 Total pack years: 45.00 Types: Cigarettes Start date: 11/02/1976 Quit date: 08/02/2003 Years since quittin.0 Smokeless tobacco: Never Subjective HPI The patient presents to the clinic today for post-hospital follow-up; overall, she is doing fine. She was recently admitted (08/04/23-08/13/23) for C1 Teclistamab, D1 (08/04/23) 4.9 mg, D3 (08/06/23) 24.5 mg, D3 (08/08/23) 120 mg. Hospital course complicated by grade-I CRS (fevers) and neurotoxicity,managed w/ IV antibiotics and monitoring for which symptoms resolved. Her energy level has been okay, but she can do everything she needs. She's eating and drinking well. She has had some nausea, but ondansetron helps. No vomiting. She's drinking plenty of water. No fevers or chills. No headaches, no visual changes. She denies changes in thought, and her son agrees. No difficulties with fine-motor tasks. Her balance has been fine - no falls. She's doing okay with breathing. No chest pain or dyspnea. No cough or productive cough. No diarrhea or constipation. No hematuria, dysuria, melena, or hematochezia. No swelling in arms or legs. No rashes. Review of Systems All other systems reviewed and are negative. Objective BSA: There is no height or weight on file to calculate BSA. There were no vitals taken for this visit. Physical Exam HENT: Mouth/Throat: Mouth: Mucous membranes are moist. Pharynx: No posterior oropharyngeal erythema. Eyes: General: No scleral icterus. Extraocular Movements: Extraocular movements intact. Pupils: Pupils are equal, round, and reactive to light. Cardiovascular: Rate and Rhythm: Normal rate and regular rhythm. Heart sounds: No murmur heard. No friction rub. No gallop. Pulmonary: Effort: No respiratory distress. Breath sounds: No stridor. No wheezing, rhonchi or rales. Abdominal: General: There is no distension. Palpations: There is no mass. Tenderness: There is no abdominal tenderness. There is no guarding or rebound. Musculoskeletal: General: No swelling or deformity. Right lower leg: No edema. Left lower leg: No edema. Lymphadenopathy: Cervical: No cervical adenopathy. Skin: Findings: No lesion or rash. Comments: R PICC chest MediPort site is clean/dry/intact without erythema, edema, tenderness or discharge Neurological: Mental Status: She is alert. Cranial Nerves: No cranial nerve deficit. Motor: No weakness. Psychiatric: Mood and Affect: Mood normal. Behavior: Behavior normal. Performance Status: Symptomatic; fully ambulatory Assessment/Plan Problem List Items Addressed This Visit ICD-10-CM Multiple myeloma ([facility]) - Primary C90.00 Currently in relapse - Workup and treatment as above - No current s/s of CRS or ICANS today (08/17/23) - Ferritin, CRP, fibrinogen from today (08/17/23) will take many hours to result -- will not make patient wait, as these have been fine - C2 teclistamab (D1: 08/17/23), planned - Will be due for myeloma markers around 08/17 -- pending today Immunosuppressed status (CMS/[facility]) D84.9 - VZV: Continue acyclovir 400 mg PO BID - PJP: Continue trimethoprim-sulfamethoxazole 800-160 mg PO 3x weekly Pancytopenia (CMS/HCC) D61.818 Due to disease and chemotherapy Transfuse for Hgb < 7 g/dL and platelets < 10 k/uL or bleeding RTC: - 08/20/23: Dr. Lindquist Requested, pending: - 08/24/23: C2D8 teclistamab - 08/31/23: C15 teclistamab - 09/07/23: C2D22 teclistamab [facility] documented in this [facility] Work Phone: [phone] 727-550810-16-2023 Evaluation + Plan note* Assessment & Plan Note - Tk Camp PA-C - 08/17/2023 7:42 AM EDTAssociated Problem(s): Immunosuppressed status (CMS/HCC) - VZV: Continue acyclovir 400 mg PO BID - PJP: Continue trimethoprim-sulfamethoxazole 800-160 mg PO 3x weekly [facility] Work Phone: [phone] Evaluation + Plan note* Assessment & Plan Note - Tk Camp PA-C - 08/17/2023 7:42 AM EDTAssociated Problem(s): Pancytopenia (CMS/HCC) Due to disease and chemotherapy Transfuse for Hgb < 7 g/dL and platelets < 10 k/uL or bleeding [facility] Work Phone: [phone] Miscellaneous Notes* Assessment & Plan Note - Tk Camp PA-C - 08/17/2023 7:42 AM EDTAssociated Problem(s): Immunosuppressed status (CMS/HCC) - VZV: Continue acyclovir 400 mg PO BID - PJP: Continue trimethoprim-sulfamethoxazole 800-160 mg PO 3x weekly * Assessment & Plan Note - Tk Camp PA-C - 08/17/2023 7:42 AM EDT Associated Problem(s): Pancytopenia (CMS/HCC) Due to disease and chemotherapy Transfuse for Hgb < 7 g/dL and platelets < 10 k/uL or bleeding * Assessment & Plan Note - Tk Camp PA-C - 08/17/2023 7:41 AM EDT Associated Problem(s): Multiple myeloma (CMS/HCC) Currently in relapse - Workup and treatment as above - No current s/s of CRS or ICANS today (08/17/23) - Ferritin, CRP, fibrinogen from today (08/17/23) will take many hours to result -- will not make patient wait, as these have been fine - C2 teclistamab (D1: 08/17/23), planned - Will be due for myeloma markers around 08/17 -- pending today documented in this [facility] Work Phone: [phone] Evaluation + Plan note* Assessment & Plan Note - Tk Camp PA-C - 08/17/2023 7:41 AM EDTAssociated Problem(s): Multiple myeloma (CMS/HCC) Currently in relapse - Workup and treatment as above - No current s/s of CRS or ICANS today (08/17/23) - Ferritin, CRP, fibrinogen from today (08/17/23) will take many hours to result -- will not make patient wait, as these have been fine - C2 teclistamab (D1: 08/17/23), planned - Will be due for myeloma markers around 08/17 -- pending today [facility] Work Phone: [phone] 334-418910-13-2023 Evaluation + Plan note* Assessment & Plan Note - Lakeisha Kevin PA-C - 08/14/2023 11:06 AM EDTAssociated Problem(s): Multiple myeloma (CMS/HCC) :: Currently in relapse - Workup and [...] Plan, so I will enter these outside [facility] Work Phone: [phone] Miscellaneous Notes* Assessment & Plan Note - Lakeisha Kevin PA-C - 08/14/2023 11:06 AM EDTAssociated Problem(s): Multiple myeloma (CMS/HCC) :: Currently in relapse - Workup and [...] Plan, so I will enter these outside * Assessment & Plan Note - Lakeisha Kevin PA-C - 08/14/2023 11:02 AM EDTAssociated Problem(s): Pancytopenia (CMS/HCC) :: Due to disease and chemotherapy - Transfuse for Hgb < 7 g/dL and platelets < 10 k/uL or bleeding * Assessment & Plan Note - Lakeisha Kevin PA-C - 08/14/2023 10:20 AM EDTAssociated Problem(s): Immunosuppressed status (CMS/HCC) - VZV: Continue acyclovir 400 mg PO BID - PJP: Continue trimethoprim-sulfamethoxazole 800-160 mg PO 3x weekly [facility]: [phone] Evaluation + Plan note* Assessment & Plan Note - Lakeisha Kevin PA-C - 08/14/2023 11:02 AM EDTAssociated Problem(s): Pancytopenia (CMS/HCC) :: Due to disease and chemotherapy - Transfuse for Hgb < 7 g/dL and platelets < 10 k/uL or bleeding [facility] Work Phone: [phone] Evaluation + Plan note* Assessment & Plan Note - Lakeisha Kevin PA-C - 08/14/2023 10:20 AM EDTAssociated Problem(s): Immunosuppressed status (CMS/HCC) - VZV: Continue acyclovir 400 mg PO BID - PJP: Continue trimethoprim-sulfamethoxazole 800-160 mg PO 3x weekly [facility] Work Phone: [phone] History of Present illness Narrative* Lakeisha Kevin PA-C - 08/14/2023 10:00 AM EDT Patient ID: Mojgan Pérez is a 67 y.o. female. Diagnosis: [Associated problem not found], No matching staging information was found for the patient., Treatment: Oncology History Overview Note he has been referred from Dr. Marinelli at [facility]. 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 Kumari, and then Dr. Cummings. 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 Marrow 05/2023 1q+, 4p-, 13q/-13, 14q- and 16q- [id number] Observation 2019 Palliative XRT both hips 800 cGy 04/10/2020 Velcade dex jennifer 07/31/2021 Radiation to soff tissue area of hip 3000 cGray 08/30/2021 Jennifer rev 12/2021 not a candidate for transplant (pancytopenia - liver cirrhosisO 12/2021 Jennifer/ Pomalidomide -marrow suppression 07/2022 carfilzomib - cyclophosphamide marrow suppression Per Dr. Lindquist, [r]ecent marrow [presumably May 2023] shows only a small percentage of plasmacells in hypocellular marrow. Since the marrow was obtained in what was possibly radiation field this may not be entirely premium service representative. There is also clonal evolution in the marrow with the most recent marrow showing additional cytogenetic abnormalities. Most recent myeloma labs (07/23/23) show free lambda light chains of 35.95 mg/dL, up from 5.65 mg/dLin December 2022 free-lambda M-spike of 0.1 g/dL - Teclistamab ramp-up (08/04-08/06-08/09/23): complicated grade-I CRS (fevers) and ICANS (suzanna ICE score 8/10) - C2 teclistamab (08/17/23), planned Multiple myeloma ([facility]) 08/03/2023 Initial Diagnosis Multiple myeloma ([facility]) 08/04/2023 - Chemotherapy Teclistamab (Weekly), 28 Day Cycles Response: Past Medical History: No past medical history on file. Surgical History: No past surgical history on file. Family History: No family history on file. Social History: Social History Tobacco Use Smoking status: Former Packs/day: 3.00 Years: 15.00 Additional pack years: 0.00 Total pack years: 45.00 Types: Cigarettes Start date: 11/02/1976 Quit date: 08/02/2003 Years since quittin.0 Smokeless tobacco: Never Subjective HPI The patient presents to the clinic today for post-hospital follow-up; overall, she is doing fine. She was recently admitted (08/04/23-08/13/23) for C1 Teclistamab, D1 (08/04/23) 4.9 mg, D3 (08/06/23) 24.5 mg, D3 (08/08/23) 120 mg. Hospital course complicated by grade-I CRS (fevers) and neurotoxicity,managed w/ IV antibiotics and monitoring for which symptoms resolved. Her energy level has been okay, but she can do everything she needs. She's eating and drinking well. She has had some nausea, but ondansetron helps. No vomiting. She's drinking plenty of water. No fevers or chills. No headaches, no visual changes. She denies changes in thought, and her son agrees. No difficulties with fine-motor tasks. Her balance has been fine - no falls. She's doing okay with breathing. No chest pain or dyspnea. No cough or productive cough. No diarrhea or constipation. No hematuria, dysuria, melena, or hematochezia. No swelling in arms or legs. No rashes. Review of Systems All other systems reviewed and are negative. Objective BSA: There is no height or weight on file to calculate BSA. There were no vitals taken for this visit. Physical Exam HENT: Mouth/Throat: Mouth: Mucous membranes are moist. Pharynx: No posterior oropharyngeal erythema. Eyes: General: No scleral icterus. Extraocular Movements: Extraocular movements intact. Pupils: Pupils are equal, round, and reactive to light. Cardiovascular: Rate and Rhythm: Normal rate and regular rhythm. Heart sounds: No murmur heard. No friction rub. No gallop. Pulmonary: Effort: No respiratory distress. Breath sounds: No stridor. No wheezing, rhonchi or rales. Abdominal: General: There is no distension. Palpations: There is no mass. Tenderness: There is no abdominal tenderness. There is no guarding or rebound. Musculoskeletal: General: No swelling or deformity. Right lower leg: No edema. Left lower leg: No edema. Lymphadenopathy: Cervical: No cervical adenopathy. Skin: Findings: No lesion or rash. Comments: R PICC chest MediPort site is clean/dry/intact without erythema, edema, tenderness or discharge Neurological: Mental Status: She is alert. Cranial Nerves: No cranial nerve deficit. Motor: No weakness. Psychiatric: Mood and Affect: Mood normal. Behavior: Behavior normal. Performance Status: Symptomatic; fully ambulatory Assessment/Plan Problem List Items Addressed This Visit ICD-10-CM Malignant Neoplasms Pancytopenia (CMS/HCC) D61.818 :: Due to disease and chemotherapy - Transfuse for Hgb < 7 g/dL and platelets < 10 k/uL or bleeding Multiple myeloma (CMS/HCC) - Primary C90.00 :: Currently in relapse - Workup and [...] Plan, so I will enter these outside Relevant Orders Serum Protein Electrophoresis + Immunofixation [place]/Lambda Free Light Chain, Serum Beta 2 Microglobuin Lactate Dehydrogenase Immunoglobulins (IgG, IgA, IgM) Other Immunosuppressed status (CMS/[facility]) D84.9 - VZV: Continue acyclovir 400 mg PO BID - PJP: Continue trimethoprim-sulfamethoxazole 800-160 mg PO 3x weekly RTC: - 08/17/23: C2D1 teclistamab, [facility] - 08/20/23: Dr. Lindquist Requested, pending: - 08/24/23: C2D8 teclistamab - 08/31/23: C15 teclistamab - 09/07/23: C2D22 teclistamab [facility] documented in this [facility] Work Phone: 1(659) 386-890110-11-2023 Miscellaneous Notes* Care Plan - Ro Fontanez RN - 08/12/2023 5:41 PM EDT VSS, afebrile, denies N/V/D. Chronic leg pain under control. ICE score 10, iv abx discontinued. Remains free from injury. * Care Plan - Meg Woods-PT - 08/12/2023 10:39 AM EDT Problem: Mobility Goal: STG - Patient will ambulate >/= 200 ft. independently with LRAD Outcome: Progressing Problem: Transfers Goal: STG - Patient will perform bed mobility independently Outcome: Progressing Goal: STG - Patient will transfer sit to and from stand independently Outcome: Progressing * Care Plan - Joaquina Cordon RN - 08/12/2023 5:34 AM EDT ICE score 1010, vss, afebrile, no complaints N/V/D this shift. Pt remained safe and free of falls/injury. No pain reported this shift. Will continue to monitor. * Care Plan - Ro Fontanez RN - 08/11/2023 2:57 PM EDT Pt. Ortho positive this afternoon, denies lightheadedness just c/o feeling clammy, blood glucose 90and team ordered 500cc bolus. Continues iv abx, ice score 10/10. Remains free from injury. * Significant Event - Ro Fontanez RN - 08/11/2023 1:55 PM EDT Standing vs orthos- notified carolyn kayce of positive orthostatics, denies feeling dizzy/lightheaded only endorses feeling clammy. Blood glucose 90. 500cc bolus ordered * Significant Event - Ro Fontanez RN - 08/11/2023 1:54 PM EDT Sitting vs orthos * Significant Event - Ro Fontanez RN - 08/11/2023 1:53 PM EDT Lying vs orthos * Care Plan - Joaquina Cordon RN - 08/11/2023 5:35 AM EDT vss, no complaints N/V/D this shift. Pt remained safe and free of falls/injury. No pain reported this shift. Pt febrile, cultures ordered and drawn, ice score 8/10, team notified, no new orders received this shift. Pt remai * Care Plan - Katie Marrero RN - 08/10/2023 7:21 PM EDT The patient's goals for the shift include The clinical goals for the shift include Pt. will remain afebrile throughout shift VSS. Afebrile. No complaints of V/D throughout shift. Pt reported nausea - received 8mg ODT Zofran.Pt reported leg pain - received 10mg PO Oxycodone. No IVF infusing. Mediport needle changed. Pt remained safe throughout shift. * Care Plan - Fletcher Rahman RN - 08/10/2023 6:34 AM EDT VSS, afebrile, no complaints of NVD. Complaints of pain - PRN meds given per DEC. Pt. remained freefrom falls and injury. Problem: Safety - Adult Goal: Free from fall injury 08/10/2023 06 by Fletcher Rahman RN Outcome: Progressing 08/09/20231931 by Fletcher Rahman RN Outcome: Progressing Problem: Pain Goal: Takes deep breaths with improved pain control throughout the shift 08/10/2023633 by Fletcher Rahman RN Outcome: Progressing 08/09/20231931 by Fletcher Rahman RN Outcome: Progressing * Care Plan - Ro Fontanez RN - 08/09/2023 6:34 PM EDT VSS, afebrile, denies N/V/D/pain. Received 3rd dose of tecvayli, tolerated well without incident. Continues IV abx, remains free from injury. * Significant Event - Ro Fontanez RN - 08/09/2023 11:20 AM EDT 08/09/23 1116 Prechemo Checklist Has the patient been in the hospital, ED, or urgent care since last date of service No Chemo/Immuno Consent Signed Yes Protocol/Indications Verified Yes Confirmed to previous date/time of medication Yes Compared to previous dose Yes All medications are dated accurately Yes Test Negative Not applicable Parameters Met Yes BSA/Weight-Height Verified Yes Dose Calculations Verified Yes * Care Plan - Rosario Deras RN - 08/09/2023 5:43 AM EDT The clinical goals for the shift include Patient will remain hemodynamically stable, afebrile, and neurologically intact. VSS, afebrile, no complaints N/V/D this shift. Pt remained safe and free of falls/injury. Pt received PRN tylenol x1 for a KRISHNA overnight. ICE score 10/10, CRS 0. No new issues. * Care Plan - Ro Fontanez RN - 08/08/2023 5:45 PM EDT Vss, afebrile this shift, denies n/v/d. C/o headache- received tylenol x1 and oxycodone x1. Teclistamab dose delayed today d/t fever in the past 24h. Continues iv abx, remains free from injury. * Care Plan - Rosario Deras RN - 08/08/2023 5:51 AM EDT The clinical goals for the shift include Patient will remain neurologically intact and hemodynamically stable throughout shift. VSS, no complaints N/V/D this shift. Pt remained safe and free of falls/injury. Patient received PRN tylenol x1 for a KRISHNA overnight. Patient febrile overnight and infectious workup ordered and started. * Care Plan - Stella Wall RN - 08/07/2023 5:39 PM EDT The patient's goals for the shift include decrease in pain and no chemo side effects. The clinical goals for the shift include patient will have adequate pain control with medications Patient BP elevated. Having hip pain, but refused meds so far this shift. Had emesis this evening and received zofran. Had 1 bout of coughing up blood and a clot. Madhu NOBLE notified. Patient showered today. Remained safe this shift. Stella Wall RN * Care Plan - Rosario Deras RN - 08/07/2023 6:50 AM EDT vss, afebrile, no complaints N/V/D this shift. Pt remained safe and free of falls/injury. No pain reported this shift. * Care Plan - Christi Arriola RN - 08/06/2023 6:21 PM EDT Vitals remain stable, pt afebrile throughout shift. C/o headache; Tylenol administered with effective results. No c/o N/V/D. Family at bedside often throughout shift. Second dose of Teclistamab administered this evening, pt tolerated admin well. Pt resting comfortably in bed at this time. * Significant Event - Christi Arriola RN - 08/06/2023 11:06 AM EDT 08/06/23 1104 Prechemo Checklist Has the patient been in the hospital, ED, or urgent care since last date of service No Chemo/Immuno Consent Signed Yes Protocol/Indications Verified Yes Confirmed to previous date/time of medication Yes Compared to previous dose Yes All medications are dated accurately Yes Test Negative Not applicable Parameters Met Yes BSA/Weight-Height Verified Yes Dose Calculations Verified Yes ICE score remains 10/10, no s/s CRS noted. * Care Plan - Fabiola Gorman RN - 08/06/2023 6:52 AM EDT Problem: Pain - Adult Goal: Verbalizes/displays adequate comfort level or baseline comfort level Outcome: Progressing Problem: Safety - Adult Goal: Free from fall injury Outcome: Progressing Problem: Pain Goal: Takes deep breaths with improved pain control throughout the shift Outcome: Progressing Goal: Turns in bed with improved pain control throughout the shift Outcome: Progressing Goal: Walks with improved pain control throughout the shift Outcome: Progressing Goal: Performs ADL's with improved pain control throughout shift Outcome: Progressing Goal: Participates in PT with improved pain control throughout the shift Outcome: Progressing Goal: Free from opioid side effects throughout the shift Outcome: Progressing Goal: Free from acute confusion related to pain meds throughout the shift Outcome: Progressing Problem: Fall/Injury Goal: Not fall by end of shift Outcome: Progressing Goal: Be free from injury by end of the shift Outcome: Progressing Goal: Verbalize understanding of personal risk factors for fall in the hospital Outcome: Progressing Goal: Verbalize understanding of risk factor reduction measures to prevent injury from fall in the home Outcome: Progressing Goal: Use assistive devices by end of the shift Outcome: Progressing Goal: Pace activities to prevent fatigue by end of the shift Outcome: Progressing The patient's goals for the shift include The clinical goals for the shift include remain free from fall/injury, adequate rest VSS, RA, reporting chronic hip pain, administered PRN pain medication with relief. Pt resting on and off throughout night. Remains free from fall/injury. * Care Plan - Jayesh Sandoval RN - 08/05/2023 11:57 AM EDT The patient's goals for the shift include The clinical goals for the shift include patient will remain free from falls through the end of shift Problem: Fall/Injury Goal: Verbalize understanding of personal risk factors for fall in the hospital Outcome: Progressing Problem: Fall/Injury Goal: Pace activities to prevent fatigue by end of the shift Outcome: Progressing * Care Plan - Fletcher Rahman RN - 08/05/2023 6:28 AM EDT VSS, afebrile, no complaints of NVD or pain. Pt. complaints of shakiness and night sweating, attributed to higher than usual blood sugar - symptoms subsided with time. Pt. remained free from falls orinjury. Problem: Pain - Adult Goal: Verbalizes/displays adequate comfort level or baseline comfort level Outcome: Progressing Problem: Safety - Adult Goal: Free from fall injury Outcome: Progressing Problem: Pain Goal: Takes deep breaths with improved pain control throughout the shift Outcome: Progressing Goal: Turns in bed with improved pain control throughout the shift Outcome: Progressing Goal: Walks with improved pain control throughout the shift Outcome: Progressing Goal: Performs ADL's with improved pain control throughout shift Outcome: Progressing Goal: Participates in PT with improved pain control throughout the shift Outcome: Progressing Goal: Free from opioid side effects throughout the shift Outcome: Progressing Goal: Free from acute confusion related to pain meds throughout the shift Outcome: Progressing Problem: Fall/Injury Goal: Not fall by end of shift Outcome: Progressing Goal: Be free from injury by end of the shift Outcome: Progressing Goal: Verbalize understanding of personal risk factors for fall in the hospital Outcome: Progressing Goal: Verbalize understanding of risk factor reduction measures to prevent injury from fall in the home Outcome: Progressing Goal: Use assistive devices by end of the shift Outcome: Progressing Goal: Pace activities to prevent fatigue by end of the shift Outcome: Progressing * Significant Event - Fletcher Rahman RN - 08/05/2023 2:17 AM EDT 08/05/23 0214 Prechemo Checklist Has the patient been in the hospital, ED, or urgent care since last date of service No Chemo/Immuno Consent Signed Yes Protocol/Indications Verified Yes Confirmed to previous date/time of medication Yes Compared to previous dose Yes All medications are dated accurately Yes Test Negative Not applicable Parameters Met Yes BSA/Weight-Height Verified Yes Dose Calculations Verified Yes * Care Plan - Ro Fontanez RN - 08/04/2023 6:21 PM EDT VSS, afebrile, denies N/V/D. Receiving scheduled gabapentin for chronic hip/leg pain. Received dose#1 tecvayli subcutaneous, premedicated with tylenol, benadryl and dexamethasone. Tolerated well. Remains free from injury. * Hospital Course - Nancy Robles PA-C - 08/04/2023 4:11 PM EDT 67 year old female with PMH of HTN, DMII, HLD, aortic stenosis, liver cirrhosis and refractory MM. S/p Multiple lines of therapy admitted 08/04/23 for C1 Teclistamab, D1 (08/04/23) 4.9 mg, D3 (08/06/23)24.5 mg, D3 (08/08/23) 120 mg. Patient was monitored for CRS and Neurotoxicity (ICANS) during admission plus 48 hours after dose #3 on D3. Hospital course complicated by fevers and neurotoxicity, managed w/ IV antibiotics and monitoring for which symptoms resolved. Fever on 08/08, 08/10, cultures negative. Most likely due to CRS. Patient treated with zosyn (08/08-08/10, 08/11-08/12). Neurotoxicity with ICE score 8/10 with fevers and resolved when fevers resolved. ICE score on 08/13is 08/11. Medications reviewed with PharmD Anti-infectives upon discharge: acyclovir, bactrim Dispo: Home Access: R [facility] Apts: Malignant hematology provider visit with count check prior 08/14 at 9:45am. FUV with Dr. Lindquist 08/20/23 at 3:20pm * Significant Event - Ro Fontanez RN - 08/04/2023 9:55 AM EDT 08/04/23 0952 Prechemo Checklist Has the patient been in the hospital, ED, or urgent care since last date of service No Chemo/Immuno Consent Signed Yes Protocol/Indications Verified Yes Confirmed to previous date/time of medication Yes Compared to previous dose N/A All medications are dated accurately Yes Test Negative Not applicable Parameters Met Yes BSA/Weight-Height Verified Yes Dose Calculations Verified Yes * Care Plan - Fletcher Rahman RN - 08/04/2023 6:17 AM EDT Pt. admitted to [facility] overnight for planned teclistamab treatment. VSS, afebrile, no complaints of NVD. Complaints of pain - oxycodone given x1. Pt. rested peacefully overnight - no acute events. Pt. remained free from falls and injury. Problem: Pain - Adult Goal: Verbalizes/displays adequate comfort level or baseline comfort level 08/04/2023 0616 by Fletcher Rahman, RN Outcome: Progressing 08/04/2023 0350 by Fletcher Rahman, RN Outcome: Progressing 08/04/2023 0349 by Fletcher Rahman, RN Outcome: Progressing 08/04/2023 0348 by Fletcher Rahman, RN Outcome: Progressing 08/03/2023 232 by Fletcher Rahman, RN Outcome: Progressing Problem: Safety - Adult Goal: Free from fall injury 08/04/2023 06 by Fletcher Rahman, RN Outcome: Progressing 08/04/2023 0350 by Fletcher Rahman, RN Outcome: Progressing 08/04/2023 0349 by Fletcher Rahman, RN Outcome: Progressing 08/04/2023 0348 by Fletcher Rahman, RN Outcome: Progressing 08/03/2023 232 by lFetcher Rahman, RN Outcome: Progressing Problem: Pain Goal: Takes deep breaths with improved pain control throughout the shift 08/04/2023 0616 by Fletcher Rahman, RN Outcome: Progressing 08/04/2023 0350 by Fletcher Rahman, RN Outcome: Progressing 08/04/2023 0349 by Fletcher Rahman, RN Outcome: Progressing 08/04/2023 0348 by Fletcher Rahman, RN Outcome: Progressing 08/03/2023 232 by Fletcher Rahman, RN Outcome: Progressing Goal: Turns in bed with improved pain control throughout the shift 08/04/2023 0616 by Fletcher Rahman, RN Outcome: Progressing 08/04/2023 0350 by Fletcher Rahman, RN Outcome: Progressing 08/04/2023 0349 by Fletcher Rahman, RN Outcome: Progressing 08/04/2023 0348 by Fletcher Rahman, RN Outcome: Progressing 08/03/2023 232 by Fletcher Rahman, RN Outcome: Progressing Goal: Walks with improved pain control throughout the shift 08/04/2023 0616 by Fletcher Rahman, RN Outcome: Progressing 08/04/2023 0350 by Fletcher Rahman, RN Outcome: Progressing 08/04/2023 0349 by Fletcher Rahman, RN Outcome: Progressing 08/04/2023 0348 by Fletcher Rahman, RN Outcome: Progressing 08/03/2023 232 by Fletcher Rahman, RN Outcome: Progressing Goal: Performs ADL's with improved pain control throughout shift 08/04/2023 0616 by Fletcher Rahman, RN Outcome: Progressing 08/04/2023 0350 by Fletcher Rahman, RN Outcome: Progressing 08/04/2023 0349 by Fletcher Rahman, RN Outcome: Progressing 08/04/2023 0348 by Fletcher Rahman, RN Outcome: Progressing 08/03/2023 232 by Fletcher Rahman, RN Outcome: Progressing Goal: Participates in PT with improved pain control throughout the shift 08/04/2023 0616 by Fletcher Rahman, RN Outcome: Progressing 08/04/2023 0350 by Fletcher Rahman, RN Outcome: Progressing 08/04/2023 0349 by Fletcher Rahman, RN Outcome: Progressing 08/04/2023 0348 by Fletcher Rahman, RN Outcome: Progressing 08/03/2023 232 by Fletcher Rahman, RN Outcome: Progressing Goal: Free from opioid side effects throughout the shift 08/04/2023 0616 by Fletcher Rahman, RN Outcome: Progressing 08/04/2023 0350 by Fletcher Rahman, RN Outcome: Progressing 08/04/2023 0349 by Fletcher Rahman, RN Outcome: Progressing 08/04/2023 0348 by Fletcher Rahman, RN Outcome: Progressing 08/03/2023 232 by Fletcher Rahman, RN Outcome: Progressing Goal: Free from acute confusion related to pain meds throughout the shift 08/04/2023 0616 by Fletcher Rahman, RN Outcome: Progressing 08/04/2023 0350 by Fletcher Rahman, RN Outcome: Progressing 08/04/2023 0349 by Fletcher Rahman, RN Outcome: Progressing 08/04/2023 0348 by Fletcher Rahman, RN Outcome: Progressing 08/03/2023 232 by Fletcher Rahman, RN Outcome: Progressing Problem: Fall/Injury Goal: Not fall by end of shift 08/04/2023 0616 by Fletcher Rahman, RN Outcome: Progressing 08/04/2023 0350 by Fletcher Rahman, RN Outcome: Progressing 08/04/2023 0349 by Fletcher Rahman, RN Outcome: Progressing 08/04/2023 0348 by Fletcher Rahman, RN Outcome: Progressing 08/03/2023 2325 by Fletcher Rahman, RN Outcome: Progressing Goal: Be free from injury by end of the shift 08/04/2023 0616 by Fletcher Rahman, RN Outcome: Progressing 08/04/2023 0350 by Fletcher Rahman, RN Outcome: Progressing 08/04/2023 0349 by Fletcher Rahman, RN Outcome: Progressing 08/04/2023 0348 by Fletcher Rahman, RN Outcome: Progressing 08/03/2023 2325 by Fletcher Rahman, RN Outcome: Progressing Goal: Verbalize understanding of personal risk factors for fall in the hospital 08/04/2023 0616 by Fletcher Rahman, RN Outcome: Progressing 08/04/2023 0350 by Fletcher Rahman, RN Outcome: Progressing 08/04/2023 0349 by Fletcher Rahman, RN Outcome: Progressing 08/04/2023 0348 by Fletcher Rahman, RN Outcome: Progressing 08/03/2023 2325 by Fletcher Rahman, RN Outcome: Progressing Goal: Verbalize understanding of risk factor reduction measures to prevent injury from fall in the home 08/04/2023 0616 by Fletcher Rahman, RN Outcome: Progressing 08/04/2023 0350 by Fletcher Rahman, RN Outcome: Progressing 08/04/2023 0349 by Fletcher Rahman, RN Outcome: Progressing 08/04/2023 0348 by Fletcher Rahman, RN Outcome: Progressing 08/03/2023 2325 by Fletcher Rahman, RN Outcome: Progressing Goal: Use assistive devices by end of the shift 08/04/2023 0616 by Fletcher Rahman, RN Outcome: Progressing 08/04/2023 0350 by Fletcher Rahman, RN Outcome: Progressing 08/04/2023 0349 by Fletcher Rahman, RN Outcome: Progressing 08/04/2023 0348 by Fletcher Rahman RN Outcome: Progressing 08/03/2023 2325 by Fletcher Rahman RN Outcome: Progressing Goal: Pace activities to prevent fatigue by end of the shift 08/04/2023 0616 by Fletcher Rahman RN Outcome: Progressing 08/04/2023 0350 by Fletcher Rahman RN Outcome: Progressing 08/04/2023 0349 by Fletcher Rahman RN Outcome: Progressing 08/04/2023 0348 by Fletcher Rahman RN Outcome: Progressing 08/03/2023 2325 by Fletcher Rahman RN Outcome: Progressing * Significant Event - Fletcher Rahman RN - 08/04/2023 4:22 AM EDT 08/04/23 0300 Prechemo Checklist Has the patient been in the hospital, ED, or urgent care since last date of service No Chemo/Immuno Consent Signed Yes (Paper consent placed in pt. chart folder) Protocol/Indications Verified Yes Confirmed to previous date/time of medication Yes Compared to previous dose Yes All medications are dated accurately Yes Test Negative Not applicable (Pt. age 67) Parameters Met Yes BSA/Weight-Height Verified Yes Dose Calculations Verified Yes Teclistamab: Tx plan: 0.06 mg/kg x 81 kg = 4.9 mg Actual 08/03: 0.06 mg/kg x 80.1 kg = 4.8 mg Difference: 4.9 - 4.8 = 0.1 / 4.9 = 0.02 x100 = 2% difference = WDL documented in this [facility] Work Phone: 1(925) 983-396110-11-2023 History of Present illness Narrative* Lisa Cruz PA-C - 08/12/2023 3:03 PM EDT Mojgan Pérez is a 67 y.o. female on day 9 of admission presenting with Multiple myeloma, remissionstatus unspecified (CMS/HCC). Subjective Patient feel well today, eager to be discharged home. States she has a mild frontal headache (neuroexam wnl). Nausea yesterday resolved. LBM this morning, semi-formed. Denies KRISHNA, dizziness, CP, SOB,N/V/D/C. All other ROS otherwise negative. Objective Physical Exam Constitutional: General: She is not in acute distress. Appearance: Normal appearance. She is not ill-appearing. HENT: Head: Normocephalic and atraumatic. Mouth/Throat: Mouth: Mucous membranes are moist. Eyes: General: No scleral icterus. Extraocular Movements: Extraocular movements intact. Conjunctiva/sclera: Conjunctivae normal. Pupils: Pupils are equal, round, and reactive to light. Cardiovascular: Rate and Rhythm: Normal rate and regular rhythm. Pulses: Normal pulses. Heart sounds: Normal heart sounds. No murmur heard. Pulmonary: Effort: Pulmonary effort is normal. No respiratory distress. Breath sounds: Normal breath sounds. No wheezing, rhonchi or rales. Abdominal: General: Abdomen is flat. Bowel sounds are normal. There is no distension. Palpations: Abdomen is soft. There is no mass. Tenderness: There is no abdominal tenderness. There is no guarding. Musculoskeletal: General: No swelling, deformity or signs of injury. Normal range of motion. Cervical back: Normal range of motion. Right lower leg: No edema. Left lower leg: No edema. Skin: General: Skin is warm and dry. Findings: No bruising or erythema. Neurological: General: No focal deficit present. Mental Status: She is alert and oriented to person, place, and time. Cranial Nerves: No cranial nerve deficit. Sensory: No sensory deficit. Psychiatric: Mood and Affect: Mood normal. Behavior: Behavior normal. Comments: Fluent speech, cooperative Last Recorded Vitals Blood pressure 111/73, pulse 84, temperature 35.7 C (96.3 F), temperature source Temporal, resp. rate 18, height 1.574 m (5' 1.97 ), weight 80.6 kg (177 lb 11.1 oz), SpO2 97 %. Intake/Output last 3 Shifts: I/O last 3 completed shifts: In: 600 (7.6 mL/kg) [IV Piggyback:600] Out: 1000 (12.6 mL/kg) [Urine:1000 (0.4 mL/kg/hr)] Weight: 79.1 kg Relevant Results Scheduled medications acyclovir, 400 mg, oral, BID atorvastatin, 80 mg, oral, Daily carvedilol, 12.5 mg, oral, BID with meals cholecalciferol, 125 mcg, oral, Daily cyanocobalamin, 1,000 mcg, oral, Daily DULoxetine, 60 mg, oral, Daily gabapentin, 400 mg, oral, TID insulin lispro, 0-10 Units, subcutaneous, TID with meals lisinopril, 5 mg, oral, Daily pantoprazole, 40 mg, oral, Daily before breakfast potassium chloride CR, 10 mEq, oral, Daily Continuous medications PRN medications PRN medications: acetaminophen, albuterol, albuterol, albuterol, dextrose 10 % in water (D10W), dextrose, dextrose, diphenhydrAMINE, EPINEPHrine, famotidine, glucagon, methylPREDNISolone sodium succinate (PF), ondansetron ODT, oxyCODONE, polyethylene glycol, prochlorperazine, prochlorperazine, sennosides, sodium chloride Results for orders placed or performed during the hospital encounter of 08/03/23 (from the past 24 hour(s)) POCT GLUCOSE Result Value Ref Range POCT Glucose 131 (H) 74 - 99 mg/dL Ferritin Result Value Ref Range Ferritin 98 8 - 150 ng/mL C-reactive protein Result Value Ref Range C-Reactive Protein 7.01 (H) <1.00 mg/dL Fibrinogen Result Value Ref Range Fibrinogen 224 200 - 400 mg/dL Lactate dehydrogenase Result Value Ref Range LDH 159 84 - 246 U/L CBC and Auto Differential Result Value Ref Range WBC 0.9 (LL) 4.4 - 11.3 x10*3/uL nRBC 0.0 0.0 - 0.0 /100 WBCs RBC 2.53 (L) 4.00 - 5.20 x10*6/uL Hemoglobin 8.0 (L) 12.0 - 16.0 g/dL Hematocrit 24.8 (L) 36.0 - 46.0 % MCV 98 80 - 100 fL MCH 31.6 26.0 - 34.0 pg MCHC 32.3 32.0 - 36.0 g/dL RDW 15.6 (H) 11.5 - 14.5 % Platelets 13 (LL) 150 - 450 x10*3/uL MPV 11.9 (H) 7.5 - 11.5 fL Immature Granulocytes %, Automated 2.3 (H) 0.0 - 0.9 % Immature Granulocytes Absolute, Automated 0.02 0.00 - 0.70 x10*3/uL Comprehensive Metabolic Panel Result Value Ref Range Glucose 145 (H) 74 - 99 mg/dL Sodium 141 136 - 145 mmol/L Potassium 3.6 3.5 - 5.3 mmol/L Chloride 108 (H) 98 - 107 mmol/L Bicarbonate 26 21 - 32 mmol/L Anion Gap 11 10 - 20 mmol/L Urea Nitrogen 15 6 - 23 mg/dL Creatinine 0.70 0.50 - 1.05 mg/dL eGFR >90 >60 mL/min/1.73m*2 Calcium 7.8 (L) 8.6 - 10.6 mg/dL Albumin 2.7 (L) 3.4 - 5.0 g/dL Alkaline Phosphatase 68 33 - 136 U/L Total Protein 4.3 (L) 6.4 - 8.2 g/dL AST 14 9 - 39 U/L Bilirubin, Total 1.4 (H) 0.0 - 1.2 mg/dL ALT 19 7 - 45 U/L Uric Acid Result Value Ref Range Uric Acid 2.2 (L) 2.3 - 6.7 mg/dL Magnesium Result Value Ref Range Magnesium 1.80 1.60 - 2.40 mg/dL Phosphorus Result Value Ref Range Phosphorus 3.3 2.5 - 4.9 mg/dL Manual Differential Result Value Ref Range Neutrophils %, Manual 73.3 40.0 - 80.0 % Lymphocytes %, Manual 7.8 13.0 - 44.0 % Monocytes %, Manual 6.0 2.0 - 10.0 % Eosinophils %, Manual 12.9 0.0 - 6.0 % Basophils %, Manual 0.0 0.0 - 2.0 % Seg Neutrophils Absolute, Manual 0.66 (L) 1.20 - 7.00 x10*3/uL Lymphocytes Absolute, Manual 0.07 (L) 1.20 - 4.80 x10*3/uL Monocytes Absolute, Manual 0.05 (L) 0.10 - 1.00 x10*3/uL Eosinophils Absolute, Manual 0.12 0.00 - 0.70 x10*3/uL Basophils Absolute, Manual 0.00 0.00 - 0.10 x10*3/uL Total Cells Counted 116 RBC Morphology See Below Ovalocytes Few POCT GLUCOSE Result Value Ref Range POCT Glucose 89 74 - 99 mg/dL Assessment/Plan Active Problems: Multiple myeloma (CMS/HCC) Type 2 diabetes mellitus (CMS/HCC) Peripheral neuropathy Active Problems: Multiple myeloma (CMS/HCC) Type 2 diabetes mellitus (CMS/HCC) Peripheral neuropathy Principal Problem: Multiple myeloma, remission status unspecified (CMS/HCC) Mojgan Pérez is a 67 y.o. female with PMH of Htn, DMII, HLD, aortic stenosis, liver cirrhosis, andrefractory MM s/p multiple lines of therapy who is now a direct admit for C1 Teclistamab. 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 -Marrow 05/2023 1q+, 4p-, 13q/-13, 14q- and 16q- - 07/23/23: IgG 522, IgM 36, IgA 36, KFLC 1.34, LFLC 35.95 Treatment: [id number] Observation 2019 Palliative XRT both hips 800 cGy 04/10/2020 Velcade dex jennifer 07/31/2021 Radiation to soff tissue area of hip 3000 cGray 08/30/2021 Jennifer rev 12/2021 considered not a candidate for transplant (pancytopenia - liver cirrhosis) 12/2021 Jennifer/ Pomalidomide -marrow suppression 07/2022 carfilzomib - cyclophosphamide marrow suppression Admitted for C1 Teclistamab, C1D1 on 08/04/23 (08/08) 3rd dose Teclistamab held d/t fever overnight (c/w CRS grade 1). (08/09) Afebrile. Received 3rd dose Teclistamab. CRS Monitoring: - Ferritin 107-->98 (08/12), CRP 8.19-->7.01 (08/12), Fibrinogen 266-->224 (08/12) - ICE Score 06/11 (08/11/23 AM), resolved to 08/11 (08/11/23) w/ resolution of fever HEME: #Pancytopenia, secondary to disease -Transfuse to keep hgb>7, plt> 10 -No signs of bleeding, or DIC on admission #BLE swelling, R>L -No h/o DVT -Swelling is a chronic issue r/t R knee surgery, R fibula fracture and chronic R hip pain. FEN/GI -Admission weight: 80.1kg, current wt: 80.6kg (08/12) -Low pathogen diet -Hypophosphatemia. Repleted last 08/10/23. -Home Omeprazole continued as Protonix -Constipation. Resolved. Stopped Senokot (08/09). #h/o KAPADIA -LFTs stable on admission -Daily LFT monitoring ID # Febrile (08/08, 08/10).- - Bld cxs neg to date. CXR neg. Stopped Zosyn on 08/10. - Recultured 08/11 AM, restarted zosyn (08/11--> 08/12) - Covid & MRSA negative on admit Ppx: Acyclovir 400mg BID #Recent UTI -Finished 7 days of Macrobid prior to admission -Denies urinary symptoms on admission CARDS ECHO (11/2022): LVEF 55-60%. Doppler measurements with impaired left ventricular relaxation. #h/o Aortic aneurysm -Follows with cardiology outpatient #HTN -Cont home Carvedilol 12.5mg BID -Cont home Lisinopril 5mg qd #HLD -Cont home Atorvastatin #Ortho positive (08/11), s/p IVF bolus -Orthostatic negative 08/12 ENDO #DMII -Hold home Metfomin on admit -Hold home Ozempic -Start mild SSI MISC #Neoplasm Related Pain -Cont home Oxycodone IR 10mg q4hr PRN #Peripheral Neuropathy -Continue home Gabapentin 400mg TID PRN -Continue Duloxetine 60mg qd DISPO Full code, confirmed on admit Blood consent signed on admit Oncologist: Dr. Lindquist Access: Pilo Fernandez Plan discharge 08/13 Patient seen, examined, and discussed with Dr. Ginger Cruz, PA-C Associated attestation - Marcus Miles MD - 08/13/2023 7:53 AM EDT This is a shared visit. I have reviewed the Advanced Practice Provider's encounter note, approve the Advanced Practice Provider's documentation, and provide the following additional information from my personal encounter. Multiple Myeloma,complex karyotype and gain 1q: admitted for Teclistamab. 3rd dose given on 08/09. Fever on 08/11. Cont monitor. On Zosyn.-> discontinue in AM Pancytopenia due to disease and treatment. Cont ppx antibiotics Dischage planning-> home in AM if remains afebrile. * Juan Samaniego, Meg-PT - 08/12/2023 10:42 AM EDT Physical Therapy Physical Therapy Evaluation Patient Name: Mojgan Pérez Today's Date: 08/12/2023 Start Time: 9:16 Stop Time: 9:32 Total time: 16 Assessment/Plan PT Assessment PT Assessment Results: Decreased endurance, Impaired balance, Decreased mobility, Pain Rehab Prognosis: Good Evaluation/Treatment Tolerance: Patient tolerated treatment well Medical Staff Made Aware: Yes End of Session Communication: Bedside nurse End of Session Patient Position: (Sitting EOB) IP OR SWING BED PT PLAN Inpatient or Swing Bed: Inpatient PT Plan Treatment/Interventions: Bed mobility, Transfer training, Gait training, Balance training, Neuromuscular re-education, Strengthening, Endurance training, Therapeutic exercise, Therapeutic activity, Home exercise program, Positioning, Postural re-education PT Plan: Skilled PT PT Frequency: 2 times per week PT Discharge Recommendations: Low intensity level of continued care PT - OK to Discharge: Yes (See discharge recommendations) Subjective General Visit Information: General Reason for Referral: admit for C1 Teclistamab Past Medical History Relevant to Rehab: Aortic aneurysm KAPADIA: at some point she has been listed on liver transplant list COPD DM Fibromyalgia GERD HTN Iron deficiency Family/Caregiver Present: No Prior to Session Communication: Bedside nurse Patient Position Received: (Sitting up at EOB) Preferred Learning Style: verbal General Comment: Exhibited calm and pleasant demeanor upon arrival. Cooperative with PT. Home Living: Home Living Type of Home: Apartment Lives With: (adult son) Home Adaptive Equipment: (rollator for community amb.) Home Layout: (single level suite) Home Access: No concerns Bathroom Shower/Tub: Tub/shower unit Bathroom Toilet: Standard Bathroom Equipment: Grab bars in shower Prior Level of Function: Prior Function Per Pt/Caregiver Report Level of [place]: Independent with ADLs and functional transfers ADL Assistance: Independent Ambulatory Assistance: Independent Precautions: Precautions Medical Precautions: (Protective precautions) Vital Signs: Vital Signs BP: (Sittin/64. Stand 1: 95/60. Sitting 2:104/67 (post amb.)) BP Location: Left arm BP Method: Automatic Objective Pain: Pain Assessment Pain Assessment: 0-10 Pain Score: 4 Pain Location: (Head and back) Cognition: Cognition Overall Cognitive Status: Within Functional Limits General Assessments: Sensation Sensation Comment: (reports neuropathy in UE and LE) Static Sitting Balance Static Sitting-Balance Support: No upper extremity supported Static Sitting-Level of Assistance: Close supervision Dynamic Sitting Balance Dynamic Sitting-Balance Support: No upper extremity supported Static Standing Balance Static Standing-Balance Support: No upper extremity supported Static Standing-Level of Assistance: Close supervision Dynamic Standing Balance Dynamic Standing-Balance Support: No upper extremity supported Functional Assessments: Transfers Transfer: Yes Transfer 1 Transfer From 1: Sit to Transfer to 1: Stand Technique 1: Sit to stand Transfer Level of Assistance 1: Close supervision, Minimal verbal cues Trials/Comments 1: VC for wide ROBIN and upright posture Transfers 2 Transfer From 2: Stand to Transfer to 2: Sit Technique 2: Stand to sit Transfer Level of Assistance 2: Close supervision, Minimal verbal cues Trials/Comments 2: VC for posterior aspect of knees to bed before descent Ambulation/Gait Training Ambulation/Gait Training Performed: Yes Ambulation/Gait Training 1 Surface 1: Level tile Device 1: IV Pole Assistance 1: Minimum assistance, Minimal verbal cues (CGA amb. with Min A x 1 at trunk to recover lateral LOB due to stepping incorrectly returning to bed. VC for upright posture and increased ROBIN) Quality of Gait 1: (Narrow ROBIN, decreased step and stride length, forward posture) Comments/Distance (ft) 1: (150 ft.) Extremity/Trunk Assessments: RUE RUE : Within Functional Limits LUE LUE: Within Functional Limits RLE RLE : (BLE grossly observed >/= 3+/5) LLE LLE : (BLE grossly observed >/= 3+/5) Outcome Measures: [facility] Basic Mobility Turning from your back to your side while in a flat bed without using bedrails: None Moving from lying on your back to sitting on the side of a flat bed without using bedrails: None Moving to and from bed to chair (including a wheelchair): None Standing up from a chair using your arms (e.g. wheelchair or bedside chair): None To walk in hospital room: None Climbing 3-5 steps with railing: A little Basic Mobility - Total Score: 23 Encounter Problems Encounter Problems (Active) Mobility STG - Patient will ambulate >/= 200 ft. independently with LRAD (Progressing) Start: 08/12/23 Expected End: 08/26/23 Pain - Adult Transfers STG - Patient will perform bed mobility independently (Progressing) Start: 08/12/23 Expected End: 08/26/23 STG - Patient will transfer sit to and from stand independently (Progressing) Start: 08/12/23 Expected End: 08/26/23 Education Documentation Precautions, taught by SAYRA Woods at 08/12/2023 10:41 AM. Learner: Patient Readiness: Acceptance Method: Explanation Response: Verbalizes Understanding Comment: bed mobility, transfers, ambulation, insight into potential for functional deficits with decreased mobility and importance of self-assessment for safety with activity Mobility Training, taught by SAYRA Woods at 08/12/2023 10:41 AM. Learner: Patient Readiness: Acceptance Method: Explanation Response: Verbalizes Understanding Comment: bed mobility, transfers, ambulation, insight into potential for functional deficits with decreased mobility and importance of self-assessment for safety with activity Education Comments No comments found. * Carolyn Rob PA-C - 08/11/2023 7:12 AM EDT Mojgan Pérez is a 67 y.o. female on day 8 of admission presenting with Multiple myeloma, remissionstatus unspecified (CMS/HCC). Subjective She reports feeling fatigued today, fever overnight w/ Tmax 38.7 HR 110s, ICE Score 8/10 during fever (points off for counting and handwriting), now resolved in AM. Reports some dizziness w/ standing, +orthostatic VS. Denies headache, vision changes, CP, SOB, cough, abdominal pain, n/v/c/d, bleeding, brusiing,r doug. Objective Physical Exam Constitutional: Appearance: Normal appearance. HENT: Head: Normocephalic and atraumatic. Mouth/Throat: Mouth: Mucous membranes are dry. Eyes: Extraocular Movements: Extraocular movements intact. Conjunctiva/sclera: Conjunctivae normal. Pupils: Pupils are equal, round, and reactive to light. Cardiovascular: Rate and Rhythm: Normal rate and regular rhythm. Pulses: Normal pulses. Heart sounds: Normal heart sounds. Abdominal: General: Abdomen is flat. Bowel sounds are normal. Palpations: Abdomen is soft. Musculoskeletal: General: Normal range of motion. Cervical back: Normal range of motion. Skin: General: Skin is warm and dry. Neurological: General: No focal deficit present. Mental Status: She is alert and oriented to person, place, and time. Psychiatric: Mood and Affect: Mood normal. Behavior: Behavior normal. Last Recorded Vitals Blood pressure 112/73, pulse 78, temperature 37.2 C (99 F), resp. rate 20, height 1.574 m (5' 1.97 ), weight 79.1 kg (174 lb 6.1 oz), SpO2 96 %. Intake/Output last 3 Shifts: I/O last 3 completed shifts: In: 50 (0.6 mL/kg) [IV Piggyback:50] Out: 1000 (12.6 mL/kg) [Urine:1000 (0.4 mL/kg/hr)] Weight: 79.1 kg Relevant Results Scheduled medications acyclovir, 400 mg, oral, BID atorvastatin, 80 mg, oral, Daily carvedilol, 12.5 mg, oral, BID with meals cholecalciferol, 125 mcg, oral, Daily cyanocobalamin, 1,000 mcg, oral, Daily DULoxetine, 60 mg, oral, Daily gabapentin, 400 mg, oral, TID insulin lispro, 0-10 Units, subcutaneous, TID with meals lisinopril, 5 mg, oral, Daily pantoprazole, 40 mg, oral, Daily before breakfast piperacillin-tazobactam, 3.375 g, intravenous, q6h potassium chloride CR, 10 mEq, oral, Daily Continuous medications PRN medications PRN medications: acetaminophen, albuterol, albuterol, albuterol, dextrose 10 % in water (D10W), dextrose, dextrose, diphenhydrAMINE, EPINEPHrine, famotidine, glucagon, methylPREDNISolone sodium succinate (PF), ondansetron ODT, oxyCODONE, polyethylene glycol, prochlorperazine, prochlorperazine, sennosides, sodium chloride Results for orders placed or performed during the hospital encounter of 08/03/23 (from the past 24 hour(s)) Blood Culture Specimen: Peripheral Venipuncture; Blood culture Result Value Ref Range Blood Culture Loaded on Instrument - Culture in progress Blood Culture Specimen: Central Line/Catheter (Specify below); Blood culture Result Value Ref Range Blood Culture Loaded on Instrument - Culture in progress Ferritin Result Value Ref Range Ferritin 100 8 - 150 ng/mL C-reactive protein Result Value Ref Range C-Reactive Protein 4.57 (H) <1.00 mg/dL Fibrinogen Result Value Ref Range Fibrinogen 240 200 - 400 mg/dL Lactate dehydrogenase Result Value Ref Range LDH 175 84 - 246 U/L CBC and Auto Differential Result Value Ref Range WBC 1.1 (L) 4.4 - 11.3 x10*3/uL nRBC 0.0 0.0 - 0.0 /100 WBCs RBC 2.54 (L) 4.00 - 5.20 x10*6/uL Hemoglobin 8.3 (L) 12.0 - 16.0 g/dL Hematocrit 26.1 (L) 36.0 - 46.0 % MCV 103 (H) 80 - 100 fL MCH 32.7 26.0 - 34.0 pg MCHC 31.8 (L) 32.0 - 36.0 g/dL RDW 15.2 (H) 11.5 - 14.5 % Platelets 17 (LL) 150 - 450 x10*3/uL MPV 11.3 7.5 - 11.5 fL Neutrophils % 69.9 40.0 - 80.0 % Immature Granulocytes %, Automated 0.9 0.0 - 0.9 % Lymphocytes % 6.6 13.0 - 44.0 % Monocytes % 15.1 2.0 - 10.0 % Eosinophils % 7.5 0.0 - 6.0 % Basophils % 0.0 0.0 - 2.0 % Neutrophils Absolute 0.74 (L) 1.20 - 7.70 x10*3/uL Immature Granulocytes Absolute, Automated 0.01 0.00 - 0.70 x10*3/uL Lymphocytes Absolute 0.07 (L) 1.20 - 4.80 x10*3/uL Monocytes Absolute 0.16 0.10 - 1.00 x10*3/uL Eosinophils Absolute 0.08 0.00 - 0.70 x10*3/uL Basophils Absolute 0.00 0.00 - 0.10 x10*3/uL Comprehensive Metabolic Panel Result Value Ref Range Glucose 135 (H) 74 - 99 mg/dL Sodium 138 136 - 145 mmol/L Potassium 3.6 3.5 - 5.3 mmol/L Chloride 106 98 - 107 mmol/L Bicarbonate 23 21 - 32 mmol/L Anion Gap 13 10 - 20 mmol/L Urea Nitrogen 17 6 - 23 mg/dL Creatinine 0.58 0.50 - 1.05 mg/dL eGFR >90 >60 mL/min/1.73m*2 Calcium 8.1 (L) 8.6 - 10.6 mg/dL Albumin 2.8 (L) 3.4 - 5.0 g/dL Alkaline Phosphatase 70 33 - 136 U/L Total Protein 4.3 (L) 6.4 - 8.2 g/dL AST 18 9 - 39 U/L Bilirubin, Total 1.8 (H) 0.0 - 1.2 mg/dL ALT 21 7 - 45 U/L Uric Acid Result Value Ref Range Uric Acid 2.1 (L) 2.3 - 6.7 mg/dL Magnesium Result Value Ref Range Magnesium 1.47 (L) 1.60 - 2.40 mg/dL Phosphorus Result Value Ref Range Phosphorus 3.4 2.5 - 4.9 mg/dL Morphology Result Value Ref Range RBC Morphology See Below Ovalocytes Few Urinalysis with Reflex Microscopic Result Value Ref Range Color, Urine Straw Straw, Yellow Appearance, Urine Clear Clear Specific [place], Urine 1.004 (N) 1.005 - 1.035 pH, Urine 6.0 5.0, 5.5, 6.0, 6.5, 7.0, 7.5, 8.0 Protein, Urine NEGATIVE NEGATIVE mg/dL Glucose, Urine NEGATIVE NEGATIVE mg/dL Blood, Urine NEGATIVE NEGATIVE Ketones, Urine NEGATIVE NEGATIVE mg/dL Bilirubin, Urine NEGATIVE NEGATIVE Urobilinogen, Urine <2.0 <2.0 mg/dL Nitrite, Urine NEGATIVE NEGATIVE Leukocyte Esterase, Urine NEGATIVE NEGATIVE POCT GLUCOSE Result Value Ref Range POCT Glucose 90 74 - 99 mg/dL Assessment/Plan Active Problems: Multiple myeloma (CMS/HCC) Type 2 diabetes mellitus (CMS/HCC) Peripheral neuropathy Active Problems: Multiple myeloma (CMS/HCC) Type 2 diabetes mellitus (CMS/HCC) Peripheral neuropathy Principal Problem: Multiple myeloma, remission status unspecified (CMS/HCC) Mojgan Pérez is a 67 y.o. female with PMH of Htn, DMII, HLD, aortic stenosis, liver cirrhosis, andrefractory MM s/p multiple lines of therapy who is now a direct admit for C1 Teclistamab. 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 -Marrow 05/2023 1q+, 4p-, 13q/-13, 14q- and 16q- - 07/23/23: IgG 522, IgM 36, IgA 36, KFLC 1.34, LFLC 35.95 Treatment: [id number] Observation 2019 Palliative XRT both hips 800 cGy 04/10/2020 Velcade dex jennifer 07/31/2021 Radiation to soff tissue area of hip 3000 cGray 08/30/2021 Jennifer rev 12/2021 considered not a candidate for transplant (pancytopenia - liver cirrhosis) 12/2021 Jennifer/ Pomalidomide -marrow suppression 07/2022 carfilzomib - cyclophosphamide marrow suppression Admitted for C1 Teclistamab, C1D1 on 08/04/23 (08/08) 3rd dose Teclistamab held d/t fever overnight (c/w CRS grade 1). (08/09) Afebrile. Received 3rd dose Teclistamab. CRS Monitoring: - Ferritin 107-->100 (08/11), CRP 8.19-->4.57 (08/11), Fibrinogen 266-->240 (08/11) - ICE Score 06/11 (08/11/23 AM), resolved to 08/11 (08/11/23) w/ resolution of fever HEME: #Pancytopenia, secondary to disease -Transfuse to keep hgb>7, plt> 10 -No signs of bleeding, or DIC on admission #BLE swelling, R>L -No h/o DVT -Swelling is a chronic issue r/t R knee surgery, R fibula fracture and chronic R hip pain. FEN/GI -Admission weight: 80.1kg, current wt: 79.1 kg (08/10) -Low pathogen diet -Hypophosphatemia. Repleted last 08/10/23. -Home Omeprazole continued as Protonix -Constipation. Resolved. Stopped Senokot (08/09). #h/o KAPADIA -LFTs stable on admission -Daily LFT monitoring ID # Febrile (08/08, 08/11 AM). - - Bld cxs neg to date. CXR neg. Stopped Zosyn on 08/10. - Recultured 08/11 AM, restarted zosyn (08/11--> present) - Covid & MRSA negative on admit Ppx: Acyclovir 400mg BID #Recent UTI -Finished 7 days of Macrobid prior to admission -Denies urinary symptoms on admission CARDS ECHO (11/2022): LVEF 55-60%. Doppler measurements with impaired left ventricular relaxation. #h/o Aortic aneurysm -Follows with cardiology outpatient #HTN -Cont home Carvedilol 12.5mg BID -Cont home Lisinopril 5mg qd #HLD -Cont home Atorvastatin ENDO #DMII -Hold home Metfomin on admit -Hold home Ozempic -Start mild SSI MISC #Neoplasm Related Pain -Cont home Oxycodone IR 10mg q4hr PRN #Peripheral Neuropathy -Continue home Gabapentin 400mg TID PRN -Continue Duloxetine 60mg qd DISPO Full code, confirmed on admit Blood consent signed on admit Oncologist: Dr. Lindquist Access: R. Mediport Tentative discharge tomorrow Carolyn Rob PA-C Associated attestation - Marcus Miles MD - 08/12/2023 5:57 AM EDT This is a shared visit. I have reviewed the Advanced Practice Provider's encounter note, approve the Advanced Practice Provider's documentation, and provide the following additional information from my personal encounter. Multiple Myeloma,complex karyotype and gain 1q: admitted for Teclistamab. 3rd dose given on 08/09. Fever on 08/11. Cont monitor. On Zosyn. Pancytopenia due to disease and treatment. Cont ppx antibiotics Dischage planning * Elvia Santana PA-C - 08/10/2023 8:24 PM EDT Mojgan Pérez is a 67 y.o. female with Multiple Myeloma, s/p multiple treatments. Admitted for Teclistimab ramp-up starting on 08/04/23. Subjective Afebrile. Has chronic hip pain otherwise no new complaints. No bowel movement today. Ambulating without difficulty. Denies SOB, N/V/C/D, or bleeding issues. ROS otherwise unremarkable. Objective Physical Exam Constitutional: Appearance: Normal appearance. HENT: Head: Normocephalic and atraumatic. Nose: Nose normal. Mouth/Throat: Mouth: Mucous membranes are moist. Eyes: Extraocular Movements: Extraocular movements intact. Pupils: Pupils are equal, round, and reactive to light. Cardiovascular: Rate and Rhythm: Normal rate and regular rhythm. Pulses: Normal pulses. Heart sounds: Normal heart sounds. Pulmonary: Effort: Pulmonary effort is normal. Breath sounds: Normal breath sounds. Comments: Clear to auscultation bilterally Abdominal: General: Abdomen is flat. Bowel sounds are normal. Palpations: Abdomen is soft. Musculoskeletal: General: No swelling. Normal range of motion. Cervical back: Normal range of motion and neck supple. Skin: General: Skin is warm and dry. Comments: No lesions or rashes. Neurological: General: No focal deficit present. Mental Status: She is alert and oriented to person, place, and time. Psychiatric: Mood and Affect: Mood normal. Behavior: Behavior normal. Last Recorded Vitals Blood pressure 149/72, pulse 95, temperature 37.5 C (99.5 F), temperature source Temporal, resp. rate 20, height 1.574 m (5' 1.97 ), weight 79.1 kg (174 lb 6.1 oz), SpO2 95 %. Intake/Output last 3 Shifts: I/O last 3 completed shifts: In: 100 (1.3 mL/kg) [IV Piggyback:100] Out: - (0 mL/kg) Weight: 79.1 kg Relevant Results Scheduled medications acyclovir, 400 mg, oral, BID atorvastatin, 80 mg, oral, Daily carvedilol, 12.5 mg, oral, BID with meals cholecalciferol, 125 mcg, oral, Daily cyanocobalamin, 1,000 mcg, oral, Daily DULoxetine, 60 mg, oral, Daily gabapentin, 400 mg, oral, TID insulin lispro, 0-10 Units, subcutaneous, TID with meals lisinopril, 5 mg, oral, Daily pantoprazole, 40 mg, oral, Daily before breakfast potassium chloride CR, 10 mEq, oral, Daily potassium, sodium phosphates, 1 packet, oral, BID Continuous medications PRN medications PRN medications: acetaminophen, albuterol, albuterol, albuterol, dextrose 10 % in water (D10W), dextrose, dextrose, diphenhydrAMINE, EPINEPHrine, famotidine, glucagon, methylPREDNISolone sodium succinate (PF), ondansetron ODT, oxyCODONE, polyethylene glycol, prochlorperazine, prochlorperazine, sennosides, sodium chloride Results for orders placed or performed during the hospital encounter of 08/03/23 (from the past 24 hour(s)) Ferritin Result Value Ref Range Ferritin 107 8 - 150 ng/mL C-reactive protein Result Value Ref Range C-Reactive Protein 8.19 (H) <1.00 mg/dL Fibrinogen Result Value Ref Range Fibrinogen 266 200 - 400 mg/dL Lactate dehydrogenase Result Value Ref Range LDH 189 84 - 246 U/L CBC and Auto Differential Result Value Ref Range WBC 0.8 (LL) 4.4 - 11.3 x10*3/uL nRBC 0.0 0.0 - 0.0 /100 WBCs RBC 2.78 (L) 4.00 - 5.20 x10*6/uL Hemoglobin 9.2 (L) 12.0 - 16.0 g/dL Hematocrit 28.3 (L) 36.0 - 46.0 % MCV 102 (H) 80 - 100 fL MCH 33.1 26.0 - 34.0 pg MCHC 32.5 32.0 - 36.0 g/dL RDW 15.0 (H) 11.5 - 14.5 % Platelets 22 (LL) 150 - 450 x10*3/uL MPV 12.8 (H) 7.5 - 11.5 fL Immature Granulocytes %, Automated 1.2 (H) 0.0 - 0.9 % Immature Granulocytes Absolute, Automated 0.01 0.00 - 0.70 x10*3/uL Comprehensive Metabolic Panel Result Value Ref Range Glucose 295 (H) 74 - 99 mg/dL Sodium 138 136 - 145 mmol/L Potassium 4.1 3.5 - 5.3 mmol/L Chloride 107 98 - 107 mmol/L Bicarbonate 25 21 - 32 mmol/L Anion Gap 10 10 - 20 mmol/L Urea Nitrogen 16 6 - 23 mg/dL Creatinine 0.54 0.50 - 1.05 mg/dL eGFR >90 >60 mL/min/1.73m*2 Calcium 8.4 (L) 8.6 - 10.6 mg/dL Albumin 3.3 (L) 3.4 - 5.0 g/dL Alkaline Phosphatase 83 33 - 136 U/L Total Protein 5.0 (L) 6.4 - 8.2 g/dL AST 21 9 - 39 U/L Bilirubin, Total 1.2 0.0 - 1.2 mg/dL ALT 28 7 - 45 U/L Uric Acid Result Value Ref Range Uric Acid 1.9 (L) 2.3 - 6.7 mg/dL Magnesium Result Value Ref Range Magnesium 1.94 1.60 - 2.40 mg/dL Phosphorus Result Value Ref Range Phosphorus 2.4 (L) 2.5 - 4.9 mg/dL Manual Differential Result Value Ref Range Neutrophils %, Manual 88.7 40.0 - 80.0 % Lymphocytes %, Manual 4.4 13.0 - 44.0 % Monocytes %, Manual 4.3 2.0 - 10.0 % Eosinophils %, Manual 2.6 0.0 - 6.0 % Basophils %, Manual 0.0 0.0 - 2.0 % Seg Neutrophils Absolute, Manual 0.71 (L) 1.20 - 7.00 x10*3/uL Lymphocytes Absolute, Manual 0.04 (L) 1.20 - 4.80 x10*3/uL Monocytes Absolute, Manual 0.03 (L) 0.10 - 1.00 x10*3/uL Eosinophils Absolute, Manual 0.02 0.00 - 0.70 x10*3/uL Basophils Absolute, Manual 0.00 0.00 - 0.10 x10*3/uL Total Cells Counted 115 RBC Morphology See Below Ovalocytes Few POCT GLUCOSE Result Value Ref Range POCT Glucose 159 (H) 74 - 99 mg/dL POCT GLUCOSE Result Value Ref Range POCT Glucose 126 (H) 74 - 99 mg/dL Assessment/Plan Active Problems: Multiple myeloma (CMS/HCC) Type 2 diabetes mellitus (CMS/HCC) Peripheral neuropathy Principal Problem: Multiple myeloma, remission status unspecified (CMS/HCC) Mojgan Pérez is a 67 y.o. female with PMH of Htn, DMII, HLD, aortic stenosis, liver cirrhosis, andrefractory MM s/p multiple lines of therapy who is now a direct admit for C1 Teclistamab. 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 -Marrow 05/2023 1q+, 4p-, 13q/-13, 14q- and 16q- - 07/23/23: IgG 522, IgM 36, IgA 36, KFLC 1.34, LFLC 35.95 Treatment: [id number] Observation 2019 Palliative XRT both hips 800 cGy 04/10/2020 Velcade dex jennifer 07/31/2021 Radiation to soff tissue area of hip 3000 cGray 08/30/2021 Jennifer rev 12/2021 considered not a candidate for transplant (pancytopenia - liver cirrhosis) 12/2021 Jennifer/ Pomalidomide -marrow suppression 07/2022 carfilzomib - cyclophosphamide marrow suppression Admitted for C1 Teclistamab, C1D1 on 08/04/23 (08/08) 3rd dose Teclistamab held d/t fever overnight (c/w CRS grade 1). (08/09) Afebrile. Received 3rd dose Teclistamab. (08/10) Ferritin 107, CRP 8.19, Fibrinogen 266 HEME: #Pancytopenia, secondary to disease -Transfuse to keep hgb>7, plt> 10 -No signs of bleeding, or DIC on admission #BLE swelling, R>L -No h/o DVT -Swelling is a chronic issue r/t R knee surgery, R fibula fracture and chronic R hip pain. FEN/GI Admission weight: 80.1kg, current wt: 79.1 kg (08/10) Low pathogen diet Hypophosphatemia. Repleted last 08/10/23. Home Omeprazole continued as Protonix Constipation. Resolved. Stopped Senokot (08/09). #h/o KAPADIA -LFTs stable on admission -Daily LFT monitoring ID -Febrile (08/08). Bld cxs neg to date. CXR neg. Stopped Zosyn on 08/10. -Covid & MRSA negative on admit Ppx: Acyclovir 400mg BID #Recent UTI -Finished 7 days of Macrobid prior to admission -Denies urinary symptoms on admission CARDS ECHO (11/2022): LVEF 55-60%. Doppler measurements with impaired left ventricular relaxation. #h/o Aortic aneurysm -Follows with cardiology outpatient #HTN -Cont home Carvedilol 12.5mg BID -Cont home Lisinopril 5mg qd #HLD -Cont home Atorvastatin ENDO #DMII -Hold home Metfomin on admit -Hold home Ozempic -Start mild SSI MISC #Neoplasm Related Pain -Cont home Oxycodone IR 10mg q4hr PRN #Peripheral Neuropathy -Continue home Gabapentin 400mg TID PRN -Continue Duloxetine 60mg qd DISPO Full code, confirmed on admit Blood consent signed on admit Oncologist: Dr. Lindquist Access: Pilo Fernandez Tentative discharge tomorrow I spent 30 minutes in the professional and overall care of this patient. Elvia Santana PA-C Associated attestation - Marcus Miles MD - 08/11/2023 6:08 AM EDT This is a shared visit. I have reviewed the Advanced Practice Provider's encounter note, approve the Advanced Practice Provider's documentation, and provide the following additional information from my personal encounter. Multiple Myeloma,complex karyotype and gain 1q: admitted for Teclistamab. 3rd dose given on 08/09. Cont to observe for 48 hours. Pancytopenia due to disease and treatment. Cont ppx antibiotics Dischage planning * Elvia Santana PA-C - 08/09/2023 6:39 PM EDT Mojgan Pérez is a 67 y.o. female with Multiple Myeloma, s/p multiple treatments. Admitted for Teclistimab ramp-up starting on 08/04/23. Subjective Afebrile. Has chronic hip pain otherwise no new complaints. Had 3 bowel movements overnight. Ambulating without difficulty. Urinating okay. Denies SOB, N/V/C/D, or bleeding issues. ROS otherwise unremarkable. Objective Physical Exam Constitutional: Appearance: Normal appearance. HENT: Head: Normocephalic and atraumatic. Nose: Nose normal. Mouth/Throat: Mouth: Mucous membranes are moist. Eyes: Extraocular Movements: Extraocular movements intact. Pupils: Pupils are equal, round, and reactive to light. Cardiovascular: Rate and Rhythm: Normal rate and regular rhythm. Pulses: Normal pulses. Heart sounds: Normal heart sounds. Pulmonary: Effort: Pulmonary effort is normal. Breath sounds: Normal breath sounds. Comments: Clear to auscultation bilterally Abdominal: General: Abdomen is flat. Bowel sounds are normal. Palpations: Abdomen is soft. Musculoskeletal: General: No swelling. Normal range of motion. Cervical back: Normal range of motion and neck supple. Skin: General: Skin is warm and dry. Comments: No lesions or rashes. Neurological: General: No focal deficit present. Mental Status: She is alert and oriented to person, place, and time. Psychiatric: Mood and Affect: Mood normal. Behavior: Behavior normal. Last Recorded Vitals Blood pressure 107/69, pulse 78, temperature 36.7 C (98.1 F), temperature source Temporal, resp. rate 18, height 1.574 m (5' 1.97 ), weight 78.2 kg (172 lb 6.4 oz), SpO2 98 %. Intake/Output last 3 Shifts: I/O last 3 completed shifts: In: 300 (3.7 mL/kg) [I.V.:100 (1.2 mL/kg); IV Piggyback:200] Out: - (0 mL/kg) Weight: 80.8 kg Relevant Results Scheduled medications acyclovir, 400 mg, oral, BID atorvastatin, 80 mg, oral, Daily carvedilol, 12.5 mg, oral, BID with meals cholecalciferol, 125 mcg, oral, Daily cyanocobalamin, 1,000 mcg, oral, Daily DULoxetine, 60 mg, oral, Daily gabapentin, 400 mg, oral, TID insulin lispro, 0-10 Units, subcutaneous, TID with meals lisinopril, 5 mg, oral, Daily pantoprazole, 40 mg, oral, Daily before breakfast piperacillin-tazobactam, 3.375 g, intravenous, q6h potassium chloride CR, 10 mEq, oral, Daily Continuous medications PRN medications PRN medications: acetaminophen, albuterol, albuterol, albuterol, dextrose 10 % in water (D10W), dextrose, dextrose, diphenhydrAMINE, EPINEPHrine, famotidine, glucagon, methylPREDNISolone sodium succinate (PF), ondansetron ODT, oxyCODONE, polyethylene glycol, prochlorperazine, prochlorperazine, sennosides, sodium chloride Results for orders placed or performed during the hospital encounter of 08/03/23 (from the past 24 hour(s)) Ferritin Result Value Ref Range Ferritin 107 8 - 150 ng/mL C-reactive protein Result Value Ref Range C-Reactive Protein 7.39 (H) <1.00 mg/dL Fibrinogen Result Value Ref Range Fibrinogen 252 200 - 400 mg/dL Lactate dehydrogenase Result Value Ref Range LDH 187 84 - 246 U/L CBC and Auto Differential Result Value Ref Range WBC 0.9 (LL) 4.4 - 11.3 x10*3/uL nRBC 0.0 0.0 - 0.0 /100 WBCs RBC 2.69 (L) 4.00 - 5.20 x10*6/uL Hemoglobin 8.7 (L) 12.0 - 16.0 g/dL Hematocrit 27.3 (L) 36.0 - 46.0 % MCV 102 (H) 80 - 100 fL MCH 32.3 26.0 - 34.0 pg MCHC 31.9 (L) 32.0 - 36.0 g/dL RDW 15.7 (H) 11.5 - 14.5 % Platelets 22 (LL) 150 - 450 x10*3/uL MPV 12.1 (H) 7.5 - 11.5 fL Immature Granulocytes %, Automated 1.2 (H) 0.0 - 0.9 % Immature Granulocytes Absolute, Automated 0.01 0.00 - 0.70 x10*3/uL Comprehensive Metabolic Panel Result Value Ref Range Glucose 99 74 - 99 mg/dL Sodium 142 136 - 145 mmol/L Potassium 3.7 3.5 - 5.3 mmol/L Chloride 108 (H) 98 - 107 mmol/L Bicarbonate 26 21 - 32 mmol/L Anion Gap 12 10 - 20 mmol/L Urea Nitrogen 15 6 - 23 mg/dL Creatinine 0.59 0.50 - 1.05 mg/dL eGFR >90 >60 mL/min/1.73m*2 Calcium 7.7 (L) 8.6 - 10.6 mg/dL Albumin 2.9 (L) 3.4 - 5.0 g/dL Alkaline Phosphatase 73 33 - 136 U/L Total Protein 4.3 (L) 6.4 - 8.2 g/dL AST 31 9 - 39 U/L Bilirubin, Total 1.7 (H) 0.0 - 1.2 mg/dL ALT 27 7 - 45 U/L Manual Differential Result Value Ref Range Neutrophils %, Manual 72.6 40.0 - 80.0 % Bands %, Manual 5.1 0.0 - 5.0 % Lymphocytes %, Manual 4.3 13.0 - 44.0 % Monocytes %, Manual 3.4 2.0 - 10.0 % Eosinophils %, Manual 12.0 0.0 - 6.0 % Basophils %, Manual 0.9 0.0 - 2.0 % Atypical Lymphocytes %, Manual 1.7 0.0 - 2.0 % Seg Neutrophils Absolute, Manual 0.65 (L) 1.20 - 7.00 x10*3/uL Bands Absolute, Manual 0.05 0.00 - 0.70 x10*3/uL Lymphocytes Absolute, Manual 0.04 (L) 1.20 - 4.80 x10*3/uL Monocytes Absolute, Manual 0.03 (L) 0.10 - 1.00 x10*3/uL Eosinophils Absolute, Manual 0.11 0.00 - 0.70 x10*3/uL Basophils Absolute, Manual 0.01 0.00 - 0.10 x10*3/uL Atypical Lymphs Absolute, Manual 0.02 0.00 - 0.50 x10*3/uL Total Cells Counted 117 Neutrophils Absolute, Manual 0.70 (L) 1.20 - 7.70 x10*3/uL RBC Morphology See Below Ovalocytes Few Magnesium Result Value Ref Range Magnesium 2.25 1.60 - 2.40 mg/dL Phosphorus Result Value Ref Range Phosphorus 3.6 2.5 - 4.9 mg/dL POCT GLUCOSE Result Value Ref Range POCT Glucose 72 (L) 74 - 99 mg/dL POCT GLUCOSE Result Value Ref Range POCT Glucose 72 (L) 74 - 99 mg/dL POCT GLUCOSE Result Value Ref Range POCT Glucose 218 (H) 74 - 99 mg/dL Assessment/Plan Active Problems: Multiple myeloma (CMS/HCC) Type 2 diabetes mellitus (CMS/HCC) Peripheral neuropathy Principal Problem: Multiple myeloma, remission status unspecified (CMS/HCC) Mojgan Pérez is a 67 y.o. female with PMH of Htn, DMII, HLD, aortic stenosis, liver cirrhosis, andrefractory MM s/p multiple lines of therapy who is now a direct admit for C1 Teclistamab. 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 -Marrow 05/2023 1q+, 4p-, 13q/-13, 14q- and 16q- - 07/23/23: IgG 522, IgM 36, IgA 36, KFLC 1.34, LFLC 35.95 Treatment: [id number] Observation 2019 Palliative XRT both hips 800 cGy 04/10/2020 Velcade dex jennifer 07/31/2021 Radiation to soff tissue area of hip 3000 cGray 08/30/2021 Jennifer rev 12/2021 considered not a candidate for transplant (pancytopenia - liver cirrhosis) 12/2021 Jennifer/ Pomalidomide -marrow suppression 07/2022 carfilzomib - cyclophosphamide marrow suppression Admitted for C1 Teclistamab, C1D1 on 08/04/23 (08/08) 3rd dose Teclistamab held d/t fever overnight (c/w CRS grade 1). (08/09) Afebrile today. Will proceed with 3rd dose Teclistamab. (08/09) Ferritin 107, CRP 7.39 HEME: #Pancytopenia, secondary to disease -Transfuse to keep hgb>7, plt> 10 -No signs of bleeding, or DIC on admission #BLE swelling, R>L -No h/o DVT -Swelling is a chronic issue r/t R knee surgery, R fibula fracture and chronic R hip pain. FEN/GI Admission weight: 80.1kg, current wt: 78.2 kg (08/09) Low pathogen diet Hypokalemia. Repleted last 08/09/23. Home Omeprazole continued as Protonix Constipation. Resolved. Stopped Senokot (08/09). #h/o KAPADIA -LFTs stable on admission -Daily LFT monitoring ID -Febrile (08/08). Bld cxs neg to date. CXR neg. Started Zosyn. -Covid & MRSA negative on admit Ppx: Acyclovir 400mg BID #Recent UTI -Finished 7 days of Macrobid prior to admission -Denies urinary symptoms on admission CARDS ECHO (11/2022): LVEF 55-60%. Doppler measurements with impaired left ventricular relaxation. #h/o Aortic aneurysm -Follows with cardiology outpatient #HTN -Cont home Carvedilol 12.5mg BID -Cont home Lisinopril 5mg qd #HLD -Cont home Atorvastatin ENDO #DMII -Hold home Metfomin on admit -Hold home Ozempic -Start mild SSI MISC #Neoplasm Related Pain -Cont home Oxycodone IR 10mg q4hr PRN #Peripheral Neuropathy -Continue home Gabapentin 400mg TID PRN -Continue Duloxetine 60mg qd DISPO Full code, confirmed on admit Blood consent signed on admit Oncologist: Dr. Lindquist Access: Pilo Fernandez Plan to discharge 48 hrs after 3rd dosing of Sarah Will have to come to main campus for first few Sarah doses (wkly) I spent 30 minutes in the professional and overall care of this patient. BRENDA GarciaC Associated attestation - Sarath Gamez MD - 08/10/2023 12:26 AM EDT This is a shared visit. I saw and evaluated the patient. I personally obtained the salazar and criticalportions of the history and physical exam or was physically present for salazar and critical portions performed by the physician assistant city attorney (PA). I reviewed the PA's documentation and discussed the patient with the PA. I agree with the PA's medical decision making as documented in the PA's note with the exception/addition of the followin-year-old woman with refractory lambda light chain myeloma (originally diagnosed with MGUS in , progressed to myeloma in 2020 and is now status post treatment with bortezomib, daratumumab, lenalidomide, pomalidomide and carfilzomib with concern for progression, with lambda light chains increasing from 5 to 35 from December to July 2023, as well as progressive pancytopenia. Admitted for monitoring for cytokine release syndrome and early neurotoxicity from teclistamab for initial 3 doses. Was febrile overnight on 08/07, but vital signs were stable overnight on 08/08 Subjective: Reports back to feeling quite well, does still have a little bit of fatigue, but no subjective fevers, no ongoing significant night sweats. Denies other infectious symptoms full dose teclistamab Objective: No longer febrile blood pressure normotensive to occasionally borderline hypertensive, afebrile, normal SPO2, heart rate normal. Lying in bed in no acute distress, no oral lesions, lungs are clear to auscultation, heart sounds are regular, abdomen is nondistended, nontender, no lower extremity edema, skin without lesions Labs: Chemistries with hypomagnesemia, repleting otherwise doing well. CBC with hemoglobin running 9-10, leukopenic, thrombocytopenia with platelets 10s-20s Imaging: Chest x-ray: No acute process Assessment and plan: Lambda light chain multiple myeloma: Initiating teclistamab with inpatient monitoring, 3 dose ramp-up every 48 hours, followed by monitoring. Fever overnight would be consistent with a grade 1 CRS, but has not recurred in 24 hours and so would seem to be resolution of this toxicity. Should be able to proceed to full dose, does need readministration of dexamethasone, this is ordered -To be administered today 08/09/2023 -Supportive transfusions as indicated antimicrobial prophylaxis -Observe after final dose remain on home medications for her cardiac, endocrine comorbid conditions of high blood pressure, and diabetes * Elvia Santana PA-C - 08/08/2023 7:06 PM EDT Mojgan Pérez is a 67 y.o. female with Multiple Myeloma, s/p multiple treatments. Admitted for Teclistimab ramp-up starting on 08/04/23. Subjective Developed fever of 38.7 overnight c/w grade 1 CRS. Pancultured. CXR negative. Started Zosyn. Had small headache this morning. Reports having small bowel movement yesterday. Also reports Rt side of lower back aches. Urinating frequently. Nausea last evening resolved with as needed antiemetic. Denies dizziness or SOB. ROS otherwise unremarkable. Objective Physical Exam Constitutional: Appearance: Normal appearance. HENT: Head: Normocephalic and atraumatic. Nose: Nose normal. Mouth/Throat: Mouth: Mucous membranes are moist. Eyes: Extraocular Movements: Extraocular movements intact. Pupils: Pupils are equal, round, and reactive to light. Cardiovascular: Rate and Rhythm: Normal rate and regular rhythm. Pulses: Normal pulses. Heart sounds: Normal heart sounds. Pulmonary: Effort: Pulmonary effort is normal. Breath sounds: Normal breath sounds. Comments: Clear to auscultation bilterally Abdominal: General: Abdomen is flat. Bowel sounds are normal. Palpations: Abdomen is soft. Tenderness: There is no right CVA tenderness or left CVA tenderness. Musculoskeletal: General: No swelling. Normal range of motion. Cervical back: Normal range of motion and neck supple. Right lower leg: Edema present. Skin: General: Skin is warm and dry. Comments: No lesions or rashes. Neurological: General: No focal deficit present. Mental Status: She is alert and oriented to person, place, and time. Psychiatric: Mood and Affect: Mood normal. Behavior: Behavior normal. Last Recorded Vitals Blood pressure 102/60, pulse 82, temperature 36.9 C (98.4 F), temperature source Temporal, resp. rate 18, height 1.574 m (5' 1.97 ), weight 80.8 kg (178 lb 2.1 oz), SpO2 93 %. Intake/Output last 3 Shifts: I/O last 3 completed shifts: In: 580 (7.2 mL/kg) [I.V.:480 (5.9 mL/kg); IV Piggyback:100] Out: - (0 mL/kg) Weight: 80.8 kg Relevant Results Scheduled medications acyclovir, 400 mg, oral, BID atorvastatin, 80 mg, oral, Daily carvedilol, 12.5 mg, oral, BID with meals cholecalciferol, 125 mcg, oral, Daily cyanocobalamin, 1,000 mcg, oral, Daily DULoxetine, 60 mg, oral, Daily gabapentin, 400 mg, oral, TID insulin lispro, 0-10 Units, subcutaneous, TID with meals lisinopril, 5 mg, oral, Daily pantoprazole, 40 mg, oral, Daily before breakfast piperacillin-tazobactam, 3.375 g, intravenous, q6h potassium chloride CR, 10 mEq, oral, Daily Continuous medications PRN medications PRN medications: acetaminophen, albuterol, albuterol, albuterol, dextrose 10 % in water (D10W), dextrose, dextrose, diphenhydrAMINE, EPINEPHrine, famotidine, glucagon, methylPREDNISolone sodium succinate (PF), ondansetron ODT, oxyCODONE, polyethylene glycol, prochlorperazine, prochlorperazine, sennosides, sodium chloride Results for orders placed or performed during the hospital encounter of 08/03/23 (from the past 24 hour(s)) POCT GLUCOSE Result Value Ref Range POCT Glucose 114 (H) 74 - 99 mg/dL Ferritin Result Value Ref Range Ferritin 85 8 - 150 ng/mL C-reactive protein Result Value Ref Range C-Reactive Protein 1.49 (H) <1.00 mg/dL Fibrinogen Result Value Ref Range Fibrinogen 214 200 - 400 mg/dL Lactate dehydrogenase Result Value Ref Range LDH 210 84 - 246 U/L CBC and Auto Differential Result Value Ref Range WBC 1.1 (L) 4.4 - 11.3 x10*3/uL nRBC 0.0 0.0 - 0.0 /100 WBCs RBC 2.67 (L) 4.00 - 5.20 x10*6/uL Hemoglobin 8.5 (L) 12.0 - 16.0 g/dL Hematocrit 26.3 (L) 36.0 - 46.0 % MCV 99 80 - 100 fL MCH 31.8 26.0 - 34.0 pg MCHC 32.3 32.0 - 36.0 g/dL RDW 15.1 (H) 11.5 - 14.5 % Platelets 19 (LL) 150 - 450 x10*3/uL MPV 12.2 (H) 7.5 - 11.5 fL Immature Granulocytes %, Automated 1.9 (H) 0.0 - 0.9 % Immature Granulocytes Absolute, Automated 0.02 0.00 - 0.70 x10*3/uL Comprehensive Metabolic Panel Result Value Ref Range Glucose 112 (H) 74 - 99 mg/dL Sodium 137 136 - 145 mmol/L Potassium 3.5 3.5 - 5.3 mmol/L Chloride 106 98 - 107 mmol/L Bicarbonate 22 21 - 32 mmol/L Anion Gap 13 10 - 20 mmol/L Urea Nitrogen 14 6 - 23 mg/dL Creatinine 0.44 (L) 0.50 - 1.05 mg/dL eGFR >90 >60 mL/min/1.73m*2 Calcium 7.4 (L) 8.6 - 10.6 mg/dL Albumin 3.0 (L) 3.4 - 5.0 g/dL Alkaline Phosphatase 70 33 - 136 U/L Total Protein 4.5 (L) 6.4 - 8.2 g/dL AST 31 9 - 39 U/L Bilirubin, Total 1.1 0.0 - 1.2 mg/dL ALT 29 7 - 45 U/L Blood Culture Specimen: Central Line/Catheter (Specify below); Blood culture Result Value Ref Range Blood Culture Loaded on Instrument - Culture in progress Blood Culture Specimen: Peripheral Venipuncture; Blood culture Result Value Ref Range Blood Culture Loaded on Instrument - Culture in progress Lactate Result Value Ref Range Lactate 1.1 0.4 - 2.0 mmol/L Manual Differential Result Value Ref Range Neutrophils %, Manual 63.9 40.0 - 80.0 % Bands %, Manual 16.9 0.0 - 5.0 % Lymphocytes %, Manual 6.0 13.0 - 44.0 % Monocytes %, Manual 9.6 2.0 - 10.0 % Eosinophils %, Manual 3.6 0.0 - 6.0 % Basophils %, Manual 0.0 0.0 - 2.0 % Seg Neutrophils Absolute, Manual 0.70 (L) 1.20 - 7.00 x10*3/uL Bands Absolute, Manual 0.19 0.00 - 0.70 x10*3/uL Lymphocytes Absolute, Manual 0.07 (L) 1.20 - 4.80 x10*3/uL Monocytes Absolute, Manual 0.11 0.10 - 1.00 x10*3/uL Eosinophils Absolute, Manual 0.04 0.00 - 0.70 x10*3/uL Basophils Absolute, Manual 0.00 0.00 - 0.10 x10*3/uL Total Cells Counted 83 Neutrophils Absolute, Manual 0.89 (L) 1.20 - 7.70 x10*3/uL RBC Morphology See Below Ovalocytes Few Magnesium Result Value Ref Range Magnesium 1.36 (L) 1.60 - 2.40 mg/dL Urinalysis with Reflex Microscopic and Culture Result Value Ref Range Color, Urine Yellow Straw, Yellow Appearance, Urine Clear Clear Specific [place], Urine 1.008 1.005 - 1.035 pH, Urine 7.0 5.0, 5.5, 6.0, 6.5, 7.0, 7.5, 8.0 Protein, Urine NEGATIVE NEGATIVE mg/dL Glucose, Urine NEGATIVE NEGATIVE mg/dL Blood, Urine NEGATIVE NEGATIVE Ketones, Urine NEGATIVE NEGATIVE mg/dL Bilirubin, Urine NEGATIVE NEGATIVE Urobilinogen, Urine 4.0 (N) <2.0 mg/dL Nitrite, Urine NEGATIVE NEGATIVE Leukocyte Esterase, Urine NEGATIVE NEGATIVE POCT GLUCOSE Result Value Ref Range POCT Glucose 99 74 - 99 mg/dL POCT GLUCOSE Result Value Ref Range POCT Glucose 97 74 - 99 mg/dL POCT GLUCOSE Result Value Ref Range POCT Glucose 139 (H) 74 - 99 mg/dL Assessment/Plan Active Problems: Multiple myeloma (CMS/HCC) Type 2 diabetes mellitus (CMS/HCC) Peripheral neuropathy Principal Problem: Multiple myeloma, remission status unspecified (CMS/[facility]) Mojgan Pérez is a 67 y.o. female with PMH of Htn, DMII, HLD, aortic stenosis, liver cirrhosis, andrefractory MM s/p multiple lines of therapy who is now a direct admit for C1 Teclistamab. 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 -Marrow 05/2023 1q+, 4p-, 13q/-13, 14q- and 16q- - 07/23/23: IgG 522, IgM 36, IgA 36, KFLC 1.34, LFLC 35.95 Treatment: [id number] Observation 2019 Palliative XRT both hips 800 cGy 04/10/2020 Velcade dex jennifer 07/31/2021 Radiation to soff tissue area of hip 3000 cGray 08/30/2021 Jennifer rev 12/2021 considered not a candidate for transplant (pancytopenia - liver cirrhosis) 12/2021 Jennifer/ Pomalidomide -marrow suppression 07/2022 carfilzomib - cyclophosphamide marrow suppression Admitted for C1 Teclistamab, C1D1 on 08/04/23 (08/08) 3rd dose Teclistamab on hold d/t fever overnight (c/w CRS grade 1). If patient remains afebrile x 24 hrs, will give last dose on 08/09. HEME: #Pancytopenia, secondary to disease -Transfuse to keep hgb>7, plt> 10 -No signs of bleeding, or DIC on admission #BLE swelling, R>L -No h/o DVT -Swelling is a chronic issue r/t R knee surgery, R fibula fracture and chronic R hip pain. FEN/GI Admission weight: 80.1kg, current wt: 80.8 kg (08/08) Low pathogen diet Hypokalemia/hypomagnesemia. Repleted last 08/08/23 Home Omeprazole continued as Protonix Constipation. Added Senokot. #h/o KAPADIA -LFTs stable on admission -Daily LFT monitoring ID -Febrile (08/08). Pancultured. CXR neg. Started Zosyn. -Covid & MRSA negative on admit Ppx: Acyclovir 400mg BID #Recent UTI -Finished 7 days of Macrobid prior to admission -Denies urinary symptoms on admission CARDS ECHO (11/2022): LVEF 55-60%. Doppler measurements with impaired left ventricular relaxation. #h/o Aortic aneurysm -Follows with cardiology outpatient #HTN -Cont home Carvedilol 12.5mg BID -Cont home Lisinopril 5mg qd #HLD -Cont home Atorvastatin ENDO #DMII -Hold home Metfomin on admit -Hold home Ozempic -Start mild SSI MISC #Neoplasm Related Pain -Cont home Oxycodone IR 10mg q4hr PRN #Peripheral Neuropathy -Continue home Gabapentin 400mg TID PRN -Continue Duloxetine 60mg qd DISPO Full code, confirmed on admit Blood consent signed on admit Oncologist: Dr. Lindquist Access: Pilo Fernandez Plan to discharge 48 hrs after D5 dosing of Sarah (08/10/10) Will have to come [facility] [place] for first few Sarah doses (wkly) I spent 30 minutes in the professional and overall care of this patient. BRENDA GarciaC Associated attestation - Sarath Gamez MD - 08/09/2023 4:45 PM EDT This is a shared visit. I saw and evaluated the patient. I personally obtained the salazar and criticalportions of the history and physical exam or was physically present for salazar and critical portions performed by the physician assistant city attorney (PA). I reviewed the PA's documentation and discussed the patient with the PA. I agree with the PA's medical decision making as documented in the PA's note with the exception/addition of the followin-year-old woman with refractory lambda light chain myeloma (originally diagnosed with MGUS in , progressed to myeloma in 2019 and is now status post treatment with bortezomib, daratumumab, lenalidomide, pomalidomide and carfilzomib with concern for progression, with lambda light chains increasing from 5 to 35 from December to July 2023, as well as progressive pancytopenia. Admitted for monitoring for cytokine release syndrome and early neurotoxicity from teclistamab for initial 3 doses. Was febrile overnight on 08/07. Subjective: A little fatigued, but other than the overnight fever she reports no other symptoms. She has no infectious symptoms including rhinorrhea, sore throat, shortness of breath, abdominal pain,diarrhea. Objective: No longer febrile blood pressure normotensive to occasionally borderline hypertensive, afebrile, normal SPO2, heart rate normal. Lying in bed in no acute distress, no oral lesions, lungs are clear to auscultation, heart sounds are regular, abdomen is nondistended, nontender, no lower extremity edema, skin without lesions Labs: Chemistries with hypomagnesemia, repleting otherwise doing well. CBC with hemoglobin running 9-10, leukopenic, thrombocytopenia with platelets 19 Imaging: Chest x-ray: No acute process Assessment and plan: Lambda light chain multiple myeloma: Initiating teclistamab with inpatient monitoring, 3 dose ramp-up every 48 hours, followed by monitoring. Fever overnight would be consistent with a grade 1 CRS, may already be resolved, would like to ensure remains resolved prior to continuing therapy. We will need to repeat premedication dosing (her current treatment plan administers dexamethasone prior to each dose, so this will happen regardless) -Hold planned 08/08/2023 dose to ensure fevers remain resolved for minimum of 24 hours -Supportive transfusions as indicated antimicrobial prophylaxis -Reconsider last dose tomorrow remain on home medications for her cardiac, endocrine comorbid conditions of high blood pressure, and diabetes * Marita Ng PA-C - 08/07/2023 11:23 AM EDT Mojgan Pérez is a 67 y.o. female with Multiple Myeloma, s/p multiple treatments. Admitted for Teclistimab ramp-up starting on 08/04/23. Subjective Afebrile. No acute issues overnight. Tolerated first two doses of Teclistimab without complications, no neurotoxicity noted. Denies KRISHNA, visual changes, dizziness, CP, SOB, abd pain, N/V/D or bleeding. Appetite good, ambulating freely in room. ROS otherwise unremarkable. Objective Physical Exam Constitutional: Appearance: Normal appearance. HENT: Head: Normocephalic and atraumatic. Nose: Nose normal. Mouth/Throat: Mouth: Mucous membranes are moist. Eyes: Extraocular Movements: Extraocular movements intact. Pupils: Pupils are equal, round, and reactive to light. Cardiovascular: Rate and Rhythm: Normal rate and regular rhythm. Pulses: Normal pulses. Heart sounds: Normal heart sounds. Pulmonary: Effort: Pulmonary effort is normal. Breath sounds: Normal breath sounds. Comments: Clear to auscultation bilterally Abdominal: General: Abdomen is flat. Bowel sounds are normal. Palpations: Abdomen is soft. Musculoskeletal: General: No swelling. Normal range of motion. Cervical back: Normal range of motion and neck supple. Right lower leg: Edema present. Skin: General: Skin is warm and dry. Comments: No lesions or rashes. Neurological: General: No focal deficit present. Mental Status: She is alert and oriented to person, place, and time. Psychiatric: Mood and Affect: Mood normal. Behavior: Behavior normal. Last Recorded Vitals Blood pressure 148/89, pulse 82, temperature 36.7 C (98.1 F), temperature source Temporal, resp. rate 18, height 1.574 m (5' 1.97 ), weight 79.2 kg (174 lb 9.7 oz), SpO2 97 %. Intake/Output last 3 Shifts: I/O last 3 completed shifts: In: 750 (9.5 mL/kg) [P.O.:750] Out: - (0 mL/kg) Weight: 79.2 kg Relevant Results Scheduled medications acyclovir, 400 mg, oral, BID atorvastatin, 80 mg, oral, Daily carvedilol, 12.5 mg, oral, BID with meals cholecalciferol, 125 mcg, oral, Daily cyanocobalamin, 1,000 mcg, oral, Daily DULoxetine, 60 mg, oral, Daily gabapentin, 400 mg, oral, TID insulin lispro, 0-10 Units, subcutaneous, TID with meals lisinopril, 5 mg, oral, Daily pantoprazole, 40 mg, oral, Daily before breakfast potassium chloride CR, 10 mEq, oral, Daily Continuous medications PRN medications PRN medications: acetaminophen, albuterol, albuterol, albuterol, dextrose 10 % in water (D10W), dextrose, dextrose, diphenhydrAMINE, EPINEPHrine, famotidine, glucagon, methylPREDNISolone sodium succinate (PF), ondansetron ODT, oxyCODONE, polyethylene glycol, prochlorperazine, prochlorperazine, sennosides, sodium chloride Results for orders placed or performed during the hospital encounter of 08/03/23 (from the past 24 hour(s)) POCT GLUCOSE Result Value Ref Range POCT Glucose 129 (H) 74 - 99 mg/dL POCT GLUCOSE Result Value Ref Range POCT Glucose 121 (H) 74 - 99 mg/dL CBC and Auto Differential Result Value Ref Range WBC 1.1 (L) 4.4 - 11.3 x10*3/uL nRBC 0.0 0.0 - 0.0 /100 WBCs RBC 3.02 (L) 4.00 - 5.20 x10*6/uL Hemoglobin 9.6 (L) 12.0 - 16.0 g/dL Hematocrit 29.8 (L) 36.0 - 46.0 % MCV 99 80 - 100 fL MCH 31.8 26.0 - 34.0 pg MCHC 32.2 32.0 - 36.0 g/dL RDW 15.1 (H) 11.5 - 14.5 % Platelets 22 (LL) 150 - 450 x10*3/uL MPV 10.0 7.5 - 11.5 fL Immature Granulocytes %, Automated 0.9 0.0 - 0.9 % Immature Granulocytes Absolute, Automated 0.01 0.00 - 0.70 x10*3/uL Magnesium Result Value Ref Range Magnesium 1.88 1.60 - 2.40 mg/dL Renal function panel Result Value Ref Range Glucose 132 (H) 74 - 99 mg/dL Sodium 141 136 - 145 mmol/L Potassium 3.8 3.5 - 5.3 mmol/L Chloride 109 (H) 98 - 107 mmol/L Bicarbonate 24 21 - 32 mmol/L Anion Gap 12 10 - 20 mmol/L Urea Nitrogen 15 6 - 23 mg/dL Creatinine 0.27 (L) 0.50 - 1.05 mg/dL eGFR >90 >60 mL/min/1.73m*2 Calcium 8.2 (L) 8.6 - 10.6 mg/dL Phosphorus 2.3 (L) 2.5 - 4.9 mg/dL Albumin 3.4 3.4 - 5.0 g/dL Ferritin Result Value Ref Range Ferritin 94 8 - 150 ng/mL C-reactive protein Result Value Ref Range C-Reactive Protein 2.53 (H) <1.00 mg/dL Lactate dehydrogenase Result Value Ref Range LDH 214 84 - 246 U/L Manual Differential Result Value Ref Range Neutrophils %, Manual 90.4 40.0 - 80.0 % Lymphocytes %, Manual 5.2 13.0 - 44.0 % Monocytes %, Manual 2.6 2.0 - 10.0 % Eosinophils %, Manual 1.8 0.0 - 6.0 % Basophils %, Manual 0.0 0.0 - 2.0 % Seg Neutrophils Absolute, Manual 0.99 (L) 1.20 - 7.00 x10*3/uL Lymphocytes Absolute, Manual 0.06 (L) 1.20 - 4.80 x10*3/uL Monocytes Absolute, Manual 0.03 (L) 0.10 - 1.00 x10*3/uL Eosinophils Absolute, Manual 0.02 0.00 - 0.70 x10*3/uL Basophils Absolute, Manual 0.00 0.00 - 0.10 x10*3/uL Total Cells Counted 115 RBC Morphology See Below Ovalocytes Few Fibrinogen Result Value Ref Range Fibrinogen 250 200 - 400 mg/dL POCT GLUCOSE Result Value Ref Range POCT Glucose 130 (H) 74 - 99 mg/dL Assessment/Plan Active Problems: Multiple myeloma (CMS/HCC) Type 2 diabetes mellitus (CMS/HCC) Peripheral neuropathy Principal Problem: Multiple myeloma, remission status unspecified (CMS/HCC) Mojgan Pérez is a 67 y.o. female with PMH of Htn, DMII, HLD, aortic stenosis, liver cirrhosis, andrefractory MM s/p multiple lines of therapy who is now a direct admit for C1 Teclistamab. 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 -Marrow 05/2023 1q+, 4p-, 13q/-13, 14q- and 16q- - 07/23/23: IgG 522, IgM 36, IgA 36, KFLC 1.34, LFLC 35.95 Treatment: [id number] Observation 2019 Palliative XRT both hips 800 cGy 04/10/2020 Velcade dex jennifer 07/31/2021 Radiation to soff tissue area of hip 3000 cGray 08/30/2021 Jennifer rev 12/2021 considered not a candidate for transplant (pancytopenia - liver cirrhosis) 12/2021 Jennifer/ Pomalidomide -marrow suppression 07/2022 carfilzomib - cyclophosphamide marrow suppression Admitted for C1 Teclistamab, C1D1 on 08/04/23 HEME: #Pancytopenia, secondary to disease -Transfuse to keep hgb>7, plt> 10 -No signs of bleeding, or DIC on admission #BLE swelling, R>L -No h/o DVT -Swelling is a chronic issue r/t R knee surgery, R fibula fracture and chronic R hip pain. FEN/GI Admission weight: 80.1kg, current wt: 79.2 kg (08/06) Low pathogen diet Hypokalemia/hypomagnesemia. Repleted last 08/06/23 Home Omeprazole continued as Protonix #h/o KAPADIA -LFTs stable on admission -Daily LFT monitoring ID -Afebrile on admit, no signs of infx -Covid & MRSA negative on admit Ppx: Acyclovir 400mg BID #Recent UTI -Finished 7 days of Macrobid prior to admission -Denies urinary symptoms on admission CARDS ECHO (11/2022): LVEF 55-60%. Doppler measurements with impaired left ventricular relaxation. #h/o Aortic aneurysm -Follows with cardiology outpatient #HTN -Cont home Carvedilol 12.5mg BID -Cont home Lisinopril 5mg qd #HLD -Cont home Atorvastatin ENDO #DMII -Hold home Metfomin on admit -Hold home Ozempic -Start mild SSI MISC #Neoplasm Related Pain -Cont home Oxycodone IR 10mg q4hr PRN #Peripheral Neuropathy -Continue home Gabapentin 400mg TID PRN -Continue Duloxetine 60mg qd DISPO Full code, confirmed on admit Blood consent signed on admit Oncologist: Dr. Lindquist Access: Pilo Fernandez Plan to discharge 48 hrs after D5 dosing of Sarah (08/10/10) Will have to come to main campus for first few Sarah doses (wkly) I spent 30 minutes in the professional and overall care of this patient. Marita Ng PA-C Associated attestation - Sarath Gamez MD - 08/08/2023 9:34 AM EDT This is a shared visit. I saw and evaluated the patient. I personally obtained the salazar and criticalportions of the history and physical exam or was physically present for salazar and critical portions performed by the physician assistant city attorney (PA). I reviewed the PA's documentation and discussed the patient with the PA. I agree with the PA's medical decision making as documented in the PA's note with theexception/addition of the followin-year-old woman with refractory lambda light chain myeloma (originally diagnosed with MGUS in , progressed to myeloma in 2019 and is now status post treatment with bortezomib, daratumumab, lenalidomide, pomalidomide and carfilzomib with concern for progression, with lambda light chains increasing from 5 to 35 from December to July 2023, as well as progressive pancytopenia. Admitted for monitoring for cytokine release syndrome and early neurotoxicity from teclistamab for initial 3 doses. Subjective: No issues at all with the first dose of therapy, second dose today Objective: Blood pressure normotensive to occasionally borderline hypertensive, afebrile, normal SPO2, heart rate normal. Lying in bed in no acute distress, no oral lesions, lungs are clear to auscultation, heart sounds are regular, abdomen is nondistended, nontender, no lower extremity edema, skinwithout lesions, mood is normal Labs: Chemistries largely unremarkable, CBC with hemoglobin running 9-10, leukopenic, thrombocytopenia with platelets in the 20s Imaging: No interval Assessment and plan: Lambda light chain multiple myeloma: Initiating teclistamab with inpatient monitoring, 3 dose ramp-up every 48 hours, followed by 2 days of monitoring. So far no evidence of any toxicity from medication assuming no cytokine release syndrome or other toxicity anticipate discharge early next week (approximately 8 days total) -Supportive transfusions as indicated antimicrobial prophylaxis -Last dose tomorrow remain on home medications for her cardiac, endocrine comorbid conditions of high blood pressure, and diabetes * Marita Ng PA-C - 08/06/2023 4:07 PM EDT Mojgan Pérez is a 67 y.o. female with Multiple Myeloma, s/p multiple treatments. Admitted for Teclistimab ramp-up starting on 08/04/23. Subjective Afebrile. No acute issues overnight. Tolerated first dose of Teclistimab without complications, duefor second dose today. Reports KRISHNA this morning, relieved with Tylenol. Denies visual changes, dizziness, CP, SOB, abd pain, N/V/D or bleeding. Appetite good, ambulating freely in room. ROS otherwise unremarkable. Objective Physical Exam Constitutional: Appearance: Normal appearance. HENT: Head: Normocephalic and atraumatic. Nose: Nose normal. Mouth/Throat: Mouth: Mucous membranes are moist. Eyes: Extraocular Movements: Extraocular movements intact. Pupils: Pupils are equal, round, and reactive to light. Cardiovascular: Rate and Rhythm: Normal rate and regular rhythm. Pulses: Normal pulses. Heart sounds: Normal heart sounds. Pulmonary: Effort: Pulmonary effort is normal. Breath sounds: Normal breath sounds. Comments: Clear to auscultation bilterally Abdominal: General: Abdomen is flat. Bowel sounds are normal. Palpations: Abdomen is soft. Musculoskeletal: General: No swelling. Normal range of motion. Cervical back: Normal range of motion and neck supple. Right lower leg: Edema present. Skin: General: Skin is warm and dry. Comments: No lesions or rashes. Neurological: General: No focal deficit present. Mental Status: She is alert and oriented to person, place, and time. Psychiatric: Mood and Affect: Mood normal. Behavior: Behavior normal. Last Recorded Vitals Blood pressure 111/69, pulse 83, temperature 36.8 C (98.2 F), temperature source Temporal, resp. rate 18, height 1.574 m (5' 1.97 ), weight 79.2 kg (174 lb 9.7 oz), SpO2 96 %. Intake/Output last 3 Shifts: I/O last 3 completed shifts: In: 1600 (20.2 mL/kg) [P.O.:1600] Out: - (0 mL/kg) Weight: 79.2 kg Relevant Results Scheduled medications acyclovir, 400 mg, oral, BID atorvastatin, 80 mg, oral, Daily carvedilol, 12.5 mg, oral, BID with meals cholecalciferol, 125 mcg, oral, Daily cyanocobalamin, 1,000 mcg, oral, Daily DULoxetine, 60 mg, oral, Daily gabapentin, 400 mg, oral, TID insulin lispro, 0-10 Units, subcutaneous, TID with meals lisinopril, 5 mg, oral, Daily pantoprazole, 40 mg, oral, Daily before breakfast potassium chloride CR, 10 mEq, oral, Daily teclistamab-cqyv, 0.3 mg/kg (Order-Specific), subcutaneous, Once Continuous medications PRN medications PRN medications: acetaminophen, albuterol, albuterol, albuterol, dextrose 10 % in water (D10W), dextrose, dextrose, diphenhydrAMINE, EPINEPHrine, famotidine, glucagon, methylPREDNISolone sodium succinate (PF), ondansetron ODT, oxyCODONE, polyethylene glycol, prochlorperazine, prochlorperazine, sennosides, sodium chloride Results for orders placed or performed during the hospital encounter of 08/03/23 (from the past 24 hour(s)) POCT GLUCOSE Result Value Ref Range POCT Glucose 77 74 - 99 mg/dL POCT GLUCOSE Result Value Ref Range POCT Glucose 89 74 - 99 mg/dL CBC and Auto Differential Result Value Ref Range WBC 1.3 (L) 4.4 - 11.3 x10*3/uL nRBC 0.0 0.0 - 0.0 /100 WBCs RBC 2.79 (L) 4.00 - 5.20 x10*6/uL Hemoglobin 9.4 (L) 12.0 - 16.0 g/dL Hematocrit 27.4 (L) 36.0 - 46.0 % MCV 98 80 - 100 fL MCH 33.7 26.0 - 34.0 pg MCHC 34.3 32.0 - 36.0 g/dL RDW 15.5 (H) 11.5 - 14.5 % Platelets 23 (LL) 150 - 450 x10*3/uL MPV 9.9 7.5 - 11.5 fL Immature Granulocytes %, Automated 1.5 (H) 0.0 - 0.9 % Immature Granulocytes Absolute, Automated 0.02 0.00 - 0.70 x10*3/uL Magnesium Result Value Ref Range Magnesium 1.57 (L) 1.60 - 2.40 mg/dL Renal function panel Result Value Ref Range Glucose 103 (H) 74 - 99 mg/dL Sodium 141 136 - 145 mmol/L Potassium 3.4 (L) 3.5 - 5.3 mmol/L Chloride 106 98 - 107 mmol/L Bicarbonate 26 21 - 32 mmol/L Anion Gap 12 10 - 20 mmol/L Urea Nitrogen 19 6 - 23 mg/dL Creatinine 0.42 (L) 0.50 - 1.05 mg/dL eGFR >90 >60 mL/min/1.73m*2 Calcium 8.3 (L) 8.6 - 10.6 mg/dL Phosphorus 3.2 2.5 - 4.9 mg/dL Albumin 3.4 3.4 - 5.0 g/dL Ferritin Result Value Ref Range Ferritin 78 8 - 150 ng/mL C-reactive protein Result Value Ref Range C-Reactive Protein 0.85 <1.00 mg/dL Fibrinogen Result Value Ref Range Fibrinogen 216 200 - 400 mg/dL Lactate dehydrogenase Result Value Ref Range LDH 197 84 - 246 U/L Manual Differential Result Value Ref Range Neutrophils %, Manual 91.2 40.0 - 80.0 % Lymphocytes %, Manual 6.2 13.0 - 44.0 % Monocytes %, Manual 2.6 2.0 - 10.0 % Eosinophils %, Manual 0.0 0.0 - 6.0 % Basophils %, Manual 0.0 0.0 - 2.0 % Seg Neutrophils Absolute, Manual 1.19 (L) 1.20 - 7.00 x10*3/uL Lymphocytes Absolute, Manual 0.08 (L) 1.20 - 4.80 x10*3/uL Monocytes Absolute, Manual 0.03 (L) 0.10 - 1.00 x10*3/uL Eosinophils Absolute, Manual 0.00 0.00 - 0.70 x10*3/uL Basophils Absolute, Manual 0.00 0.00 - 0.10 x10*3/uL Total Cells Counted 114 RBC Morphology No significant RBC morphology present POCT GLUCOSE Result Value Ref Range POCT Glucose 81 74 - 99 mg/dL POCT GLUCOSE Result Value Ref Range POCT Glucose 129 (H) 74 - 99 mg/dL Assessment/Plan Active Problems: Multiple myeloma (CMS/HCC) Type 2 diabetes mellitus (CMS/[facility]) Peripheral neuropathy Principal Problem: Multiple myeloma, remission status unspecified (CMS/HCC) Mojgan Pérez is a 67 y.o. female with PMH of Htn, DMII, HLD, aortic stenosis, liver cirrhosis, andrefractory MM s/p multiple lines of therapy who is now a direct admit for C1 Teclistamab. 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 -Marrow 05/2023 1q+, 4p-, 13q/-13, 14q- and 16q- - 07/23/23: IgG 522, IgM 36, IgA 36, KFLC 1.34, LFLC 35.95 Treatment: [id number] Observation 2019 Palliative XRT both hips 800 cGy 04/10/2020 Velcade dex jennifer 07/31/2021 Radiation to soff tissue area of hip 3000 cGray 08/30/2021 Jennifer rev 12/2021 considered not a candidate for transplant (pancytopenia - liver cirrhosis) 12/2021 Jennifer/ Pomalidomide -marrow suppression 07/2022 carfilzomib - cyclophosphamide marrow suppression Admitted for C1 Teclistamab, C1D1 on 08/04/23 HEME: #Pancytopenia, secondary to disease -Transfuse to keep hgb>7, plt> 10 -No signs of bleeding, or DIC on admission #LE swelling, R>L -No h/o DVT -Swelling is a chronic issue r/t R knee surgery, R fibula fracture and chronic R hip pain. FEN/GI Admission weight: 80.1kg, current wt: 78.2 kg (08/06) Low pathogen diet Hypokalemia/hypomagnesemia. Repleted last 08/06/23 Home Omeprazole continued as Protonix #h/o KAPADIA -LFTs stable on admission -Daily LFT monitoring ID -Afebrile on admit, no signs of infx -Covid & MRSA negative on admit Ppx: Acyclovir 400mg BID #Recent UTI -Finished 7 days of Macrobid on Thursday -Denies urinary symptoms on admission CARDS ECHO (11/2022): LVEF 55-60%. Doppler measurements with impaired left ventricular relaxation. #h/o Aortic aneurysm -Follows with cardiology outpatient #HTN -Cont home Carvedilol 12.5mg BID -Cont home Lisinopril 5mg qd #HLD -Cont home Atorvastatin ENDO #DMII -Hold home Metfomin on admit -Hold home Ozempic -Start mild SSI MISC #Neoplasm Related Pain -Cont home Oxycodone IR 10mg q4hr PRN #Peripheral Neuropathy -Continue home Gabapentin 400mg TID PRN -Continue Duloxetine 60mg qd DISPO Full code, confirmed on admit Blood consent signed on admit Oncologist: Dr. Lindquist Access: Pilo Fernandez Plan to discharge 48 hrs after D5 dosing of Sarah Will have to come to main [place] for first few Sarah doses (wkly) I spent 30 minutes in the professional and overall care of this patient. Marita Ng PA-C Associated attestation - Sarath Gamez MD - 08/08/2023 9:33 AM EDT This is a shared visit. I saw and evaluated the patient. I personally obtained the salazar and criticalportions of the history and physical exam or was physically present for salazar and critical portions performed by the physician assistant city attorney (PA). I reviewed the PA's documentation and discussed the patient with the PA. I agree with the PA's medical decision making as documented in the PA's note with theexception/addition of the followin-year-old woman with refractory lambda light chain myeloma (originally diagnosed with MGUS in , progressed to myeloma in 2020 and is now status post treatment with bortezomib, daratumumab, lenalidomide, pomalidomide and carfilzomib with concern for progression, with lambda light chains increasing from 5 to 35 from December to July 2023, as well as progressive pancytopenia. Admitted for monitoring for cytokine release syndrome and early neurotoxicity from teclistamab for initial 3 doses. Subjective: No issues at all with the first dose of therapy, second dose today Objective: Blood pressure normotensive to occasionally borderline hypertensive, afebrile, normal SPO2, heart rate normal. Lying in bed in no acute distress, no oral lesions, lungs are clear to auscultation, heart sounds are regular, abdomen is nondistended, nontender, no lower extremity edema, skinwithout lesions, mood is normal Labs: Chemistries largely unremarkable, CBC with hemoglobin running 9-10, leukopenic, thrombocytopenia with platelets in the 20s Imaging: No interval Assessment and plan: Lambda light chain multiple myeloma: Initiating teclistamab with inpatient monitoring, 3 dose ramp-up every 48 hours, followed by 2 days of monitoring. So far no evidence of any toxicity from medication assuming no cytokine release syndrome or other toxicity anticipate discharge early next week (approximately 8 days total) -Supportive transfusions as indicated antimicrobial prophylaxis remain on home medications for her cardiac, endocrine comorbid conditions of high blood pressure, and diabetes * Emmie Puri LCSW - 08/05/2023 6:11 PM EDT 08/05/23 1505 Discharge Planning Living Arrangements Children (son Juan J) Support Systems Children;Family members Assistance Needed none Type of Residence Private residence Home or Post Acute Services None Patient expects to be discharged to: home Does the patient need discharge transport arranged? No Pt admitted for C1 Teclistamab. Pt follows with Dr. Lindquist for dx of Multiple Myeloma and has amediport. Pt is independent with ADLs and reports having a supportive family to assist as needed. * Marita Ng PA-C - 08/05/2023 10:26 AM EDT Mojgan Pérez is a 67 y.o. female with Multiple Myeloma, s/p multiple treatments. Admitted for Teclistimab ramp-up starting on 08/04/23. Subjective Afebrile. No acute issues overnight. Tolerated first dose of Teclistimab without complications. Reports some cold sweats overnight d/t hyperglycemia. Denies KRISHNA, dizziness, CP, SOB, abd pain, N/V/D orbleeding. Appetite good, ambulating freely in room. ROS otherwise unremarkable. Objective Physical Exam Constitutional: Appearance: Normal appearance. HENT: Head: Normocephalic and atraumatic. Nose: Nose normal. Mouth/Throat: Mouth: Mucous membranes are moist. Eyes: Extraocular Movements: Extraocular movements intact. Pupils: Pupils are equal, round, and reactive to light. Cardiovascular: Rate and Rhythm: Normal rate and regular rhythm. Pulses: Normal pulses. Heart sounds: Normal heart sounds. Pulmonary: Effort: Pulmonary effort is normal. Breath sounds: Normal breath sounds. Comments: Clear to auscultation bilterally Abdominal: General: Abdomen is flat. Bowel sounds are normal. Palpations: Abdomen is soft. Musculoskeletal: General: No swelling. Normal range of motion. Cervical back: Normal range of motion and neck supple. Right lower leg: Edema present. Skin: General: Skin is warm and dry. Comments: No lesions or rashes. Neurological: General: No focal deficit present. Mental Status: She is alert and oriented to person, place, and time. Psychiatric: Mood and Affect: Mood normal. Behavior: Behavior normal. Last Recorded Vitals Blood pressure 146/84, pulse 80, temperature 36.4 C (97.5 F), resp. rate 18, height 1.574 m (5' 1.97 ), weight 78.9 kg (173 lb 15.1 oz), SpO2 97 %. Intake/Output last 3 Shifts: I/O last 3 completed shifts: In: 100 (1.3 mL/kg) [I.V.:100 (1.3 mL/kg)] Out: - (0 mL/kg) Weight: 78.9 kg Relevant Results Scheduled medications acyclovir, 400 mg, oral, BID atorvastatin, 80 mg, oral, Daily carvedilol, 12.5 mg, oral, BID with meals cholecalciferol, 125 mcg, oral, Daily cyanocobalamin, 1,000 mcg, oral, Daily DULoxetine, 60 mg, oral, Daily gabapentin, 400 mg, oral, TID insulin lispro, 0-10 Units, subcutaneous, TID with meals lisinopril, 5 mg, oral, Daily pantoprazole, 40 mg, oral, Daily before breakfast potassium chloride CR, 10 mEq, oral, Daily Continuous medications PRN medications PRN medications: albuterol, albuterol, albuterol, dextrose 10 % in water (D10W), dextrose, dextrose, diphenhydrAMINE, EPINEPHrine, famotidine, glucagon, methylPREDNISolone sodium succinate (PF), ondansetron ODT, oxyCODONE, polyethylene glycol, prochlorperazine, prochlorperazine, sennosides, sodium c hloride Results for orders placed or performed during the hospital encounter of 08/03/23 (from the past 24 hour(s)) POCT GLUCOSE Result Value Ref Range POCT Glucose 173 (H) 74 - 99 mg/dL POCT GLUCOSE Result Value Ref Range POCT Glucose 159 (H) 74 - 99 mg/dL CBC and Auto Differential Result Value Ref Range WBC 1.7 (L) 4.4 - 11.3 x10*3/uL nRBC 0.0 0.0 - 0.0 /100 WBCs RBC 3.21 (L) 4.00 - 5.20 x10*6/uL Hemoglobin 10.4 (L) 12.0 - 16.0 g/dL Hematocrit 32.4 (L) 36.0 - 46.0 % MCV 101 (H) 80 - 100 fL MCH 32.4 26.0 - 34.0 pg MCHC 32.1 32.0 - 36.0 g/dL RDW 15.0 (H) 11.5 - 14.5 % Platelets 29 (LL) 150 - 450 x10*3/uL MPV 10.6 7.5 - 11.5 fL Neutrophils % 72.9 40.0 - 80.0 % Immature Granulocytes %, Automated 1.2 (H) 0.0 - 0.9 % Lymphocytes % 21.2 13.0 - 44.0 % Monocytes % 4.7 2.0 - 10.0 % Eosinophils % 0.0 0.0 - 6.0 % Basophils % 0.0 0.0 - 2.0 % Neutrophils Absolute 1.24 1.20 - 7.70 x10*3/uL Immature Granulocytes Absolute, Automated 0.02 0.00 - 0.70 x10*3/uL Lymphocytes Absolute 0.36 (L) 1.20 - 4.80 x10*3/uL Monocytes Absolute 0.08 (L) 0.10 - 1.00 x10*3/uL Eosinophils Absolute 0.00 0.00 - 0.70 x10*3/uL Basophils Absolute 0.00 0.00 - 0.10 x10*3/uL Magnesium Result Value Ref Range Magnesium 1.85 1.60 - 2.40 mg/dL Renal function panel Result Value Ref Range Glucose 125 (H) 74 - 99 mg/dL Sodium 144 136 - 145 mmol/L Potassium 3.8 3.5 - 5.3 mmol/L Chloride 109 (H) 98 - 107 mmol/L Bicarbonate 29 21 - 32 mmol/L Anion Gap 10 10 - 20 mmol/L Urea Nitrogen 15 6 - 23 mg/dL Creatinine 0.37 (L) 0.50 - 1.05 mg/dL eGFR >90 >60 mL/min/1.73m*2 Calcium 8.9 8.6 - 10.6 mg/dL Phosphorus 2.7 2.5 - 4.9 mg/dL Albumin 3.5 3.4 - 5.0 g/dL Morphology Result Value Ref Range RBC Morphology See Below RBC Fragments Few Ovalocytes Few Teardrop Cells Few POCT GLUCOSE Result Value Ref Range POCT Glucose 124 (H) 74 - 99 mg/dL POCT GLUCOSE Result Value Ref Range POCT Glucose 112 (H) 74 - 99 mg/dL Assessment/Plan Active Problems: Multiple myeloma (CMS/HCC) Type 2 diabetes mellitus (CMS/HCC) Peripheral neuropathy Principal Problem: Multiple myeloma, remission status unspecified (CMS/HCC) Mojgan Pérez is a 67 y.o. female with PMH of Htn, DMII, HLD, aortic stenosis, liver cirrhosis, andrefractory MM s/p multiple lines of therapy who is now a direct admit for C1 Teclistamab. 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 -Marrow 05/2023 1q+, 4p-, 13q/-13, 14q- and 16q- - 07/23/23: IgG 522, IgM 36, IgA 36, KFLC 1.34, LFLC 35.95 Treatment: [id number] Observation 2019 Palliative XRT both hips 800 cGy 04/10/2020 Velcade dex jennifer 07/31/2021 Radiation to soff tissue area of hip 3000 cGray 08/30/2021 Jennifer rev 12/2021 considered not a candidate for transplant (pancytopenia - liver cirrhosis) 12/2021 Jennifer/ Pomalidomide -marrow suppression 07/2022 carfilzomib - cyclophosphamide marrow suppression Admitted for C1 Teclistamab, C1D1 on 08/04/23 HEME: #Pancytopenia, secondary to disease -Transfuse to keep hgb>7, plt> 10 -No signs of bleeding, or DIC on admission #LE swelling, R>L -No h/o DVT -Swelling is a chronic issue r/t R knee surgery, R fibula fracture and chronic R hip pain. FEN/GI Admission weight: 80.1kg, current wt: 78.9kg (08/05) Low pathogen diet Hypokalemia/hypomagnesemia. Repleted last 08/04/23 Home Omeprazole continued as Protonix #h/o KAPADIA -LFTs stable on admission -Daily LFT monitoring ID -Afebrile on admit, no signs of infx -Covid & MRSA negative on admit Ppx: Acyclovir 400mg BID #Recent UTI -Finished 7 days of Macrobid on Thursday -Denies urinary symptoms on admission CARDS ECHO (11/2022): LVEF 55-60%. Doppler measurements with impaired left ventricular relaxation. #h/o Aortic aneurysm -Follows with cardiology outpatient #HTN -Cont home Carvedilol 12.5mg BID -Cont home Lisinopril 5mg qd #HLD -Cont home Atorvastatin ENDO #DMII -Hold home Metfomin on admit -Hold home Ozempic -Start mild SSI MISC #Neoplasm Related Pain -Cont home Oxycodone IR 10mg q4hr PRN #Peripheral Neuropathy -Continue home Gabapentin 400mg TID PRN -Continue Duloxetine 60mg qd DISPO Full code, confirmed on admit Blood consent signed on admit Oncologist: Dr. Lindquist Access: Pilo Fernandez Plan to discharge 48 hrs after D5 dosing of Sarah Will have to come to main campus for first few Sarah doses (wkly) I spent 30 minutes in the professional and overall care of this patient. Marita Ng PA-C Associated attestation - Sarath Gamez MD - 08/08/2023 9:32 AM EDT This is a shared visit. I saw and evaluated the patient. I personally obtained the salazar and criticalportions of the history and physical exam or was physically present for salazar and critical portions performed by the physician assistant city attorney (PA). I reviewed the PA's documentation and discussed the patient with the PA. I agree with the PA's medical decision making as documented in the PA's note with the exception/addition of the followin-year-old woman with refractory lambda light chain myeloma (originally diagnosed with MGUS in , progressed to myeloma in 2019 and is now status post treatment with bortezomib, daratumumab, lenalidomide, pomalidomide and carfilzomib with concern for progression, with lambda light chains increasing from 5 to 35 from December to July 2023, as well as progressive pancytopenia. Admitted for monitoring for cytokine release syndrome and early neurotoxicity from teclistamab for initial 3 doses. Subjective: Reports no issues with initial dose today, overall feeling well Objective: Blood pressure normotensive to occasionally borderline hypertensive, afebrile, normal SPO2, heart rate normal. Lying in bed in no acute distress, no oral lesions, lungs are clear to auscultation, heart sounds are regular, abdomen is nondistended, nontender, no lower extremity edema, skinwithout lesions, mood is normal Labs: Chemistries largely unremarkable, CBC with hemoglobin around 10, leukopenic, thrombocytopeniawith platelets of 29 Imaging: No interval Assessment and plan: Lambda light chain multiple myeloma: Initiating teclistamab with inpatient monitoring, 3 dose ramp-up every 48 hours, followed by 2 days of monitoring. Assuming no cytokine release syndrome or other toxicity anticipate discharge early next week (approximately 8 days) -Supportive transfusions as indicated antimicrobial prophylaxis remain on home medications for her cardiac, endocrine comorbid conditions of high blood pressure, and diabetes * MATT Camp - 08/04/2023 1:12 PM EDT Mojgan Pérez is a 67 y.o. female on day 1 of admission presenting with Multiple myeloma, remissionstatus unspecified (CMS/HCC). Subjective Feels well. Has R ankle swelling that is chronic. Same leg that had a fibula fracture, R knee replacement and R hip chronic pain issues. ROS otherwise unremarkable. Objective Physical Exam Constitutional: Appearance: Normal appearance. HENT: Head: Normocephalic and atraumatic. Nose: Nose normal. Mouth/Throat: Mouth: Mucous membranes are moist. Eyes: Extraocular Movements: Extraocular movements intact. Pupils: Pupils are equal, round, and reactive to light. Cardiovascular: Rate and Rhythm: Normal rate and regular rhythm. Pulses: Normal pulses. Heart sounds: Normal heart sounds. Pulmonary: Effort: Pulmonary effort is normal. Breath sounds: Normal breath sounds. Abdominal: General: There is distension. Palpations: Abdomen is soft. Musculoskeletal: General: No swelling. Normal range of motion. Cervical back: Normal range of motion and neck supple. Right lower leg: Edema present. Skin: General: Skin is warm and dry. Capillary Refill: Capillary refill takes more than 3 seconds. Neurological: General: No focal deficit present. Mental Status: She is alert and oriented to person, place, and time. Psychiatric: Mood and Affect: Mood normal. Behavior: Behavior normal. Last Recorded Vitals Blood pressure 130/79, pulse 72, temperature 36.6 C (97.9 F), resp. rate 16, height 1.574 m (5' 1.97 ), weight 80.1 kg (176 lb 9.4 oz), SpO2 95 %. Intake/Output last 3 Shifts: No intake/output data recorded. Relevant Results Scheduled medications acyclovir, 400 mg, oral, BID atorvastatin, 80 mg, oral, Daily carvedilol, 12.5 mg, oral, BID with meals cholecalciferol, 125 mcg, oral, Daily cyanocobalamin, 1,000 mcg, oral, Daily DULoxetine, 60 mg, oral, Daily gabapentin, 400 mg, oral, TID insulin lispro, 0-10 Units, subcutaneous, TID with meals lisinopril, 5 mg, oral, Daily magnesium sulfate, 4 g, intravenous, Once pantoprazole, 40 mg, oral, Daily before breakfast potassium chloride CR, 20 mEq, oral, BID potassium chloride CR, 10 mEq, oral, Daily teclistamab-cqyv, 0.06 mg/kg (Order-Specific), subcutaneous, Once Continuous medications PRN medications PRN medications: albuterol, albuterol, albuterol, dextrose, dextrose, dextrose, diphenhydrAMINE, EPINEPHrine, famotidine, glucagon, methylPREDNISolone sodium succinate (PF), ondansetron ODT, oxyCODONE, polyethylene glycol, prochlorperazine, prochlorperazine, sennosides, sodium chloride Results for orders placed or performed during the hospital encounter of 08/03/23 (from the past 24 hour(s)) SARS-CoV-2 RT PCR Result Value Ref Range Coronavirus 2018, PCR Not Detected Not Detected CBC and Auto Differential Result Value Ref Range WBC 1.6 (L) 4.4 - 11.3 x10*3/uL nRBC 0.0 0.0 - 0.0 /100 WBCs RBC 3.01 (L) 4.00 - 5.20 x10*6/uL Hemoglobin 9.5 (L) 12.0 - 16.0 g/dL Hematocrit 30.1 (L) 36.0 - 46.0 % MCV 100 80 - 100 fL MCH 31.6 26.0 - 34.0 pg MCHC 31.6 (L) 32.0 - 36.0 g/dL RDW 15.5 (H) 11.5 - 14.5 % Platelets 30 (LL) 150 - 450 x10*3/uL MPV 10.1 7.5 - 11.5 fL Immature Granulocytes %, Automated 0.0 0.0 - 0.9 % Immature Granulocytes Absolute, Automated 0.00 0.00 - 0.70 x10*3/uL Magnesium Result Value Ref Range Magnesium 1.66 1.60 - 2.40 mg/dL Uric Acid Result Value Ref Range Uric Acid 4.2 2.3 - 6.7 mg/dL Hepatic Function Panel Result Value Ref Range Albumin 3.6 3.4 - 5.0 g/dL Bilirubin, Total 0.9 0.0 - 1.2 mg/dL Bilirubin, Direct 0.3 0.0 - 0.3 mg/dL Alkaline Phosphatase 83 33 - 136 U/L ALT 16 7 - 45 U/L AST 21 9 - 39 U/L Total Protein 5.2 (L) 6.4 - 8.2 g/dL Lactate Dehydrogenase Result Value Ref Range LDH 194 84 - 246 U/L Coagulation Screen Result Value Ref Range Protime 15.1 (H) 9.8 - 12.8 seconds INR 1.3 (H) 0.9 - 1.1 aPTT 139 (HH) 27 - 38 seconds Type And Screen Result Value Ref Range ABO TYPE A Rh TYPE POS ANTIBODY SCREEN NEG Phosphorus Result Value Ref Range Phosphorus 4.1 2.5 - 4.9 mg/dL Basic Metabolic Panel Result Value Ref Range Glucose 110 (H) 74 - 99 mg/dL Sodium 144 136 - 145 mmol/L Potassium 3.5 3.5 - 5.3 mmol/L Chloride 108 (H) 98 - 107 mmol/L Bicarbonate 28 21 - 32 mmol/L Anion Gap 12 10 - 20 mmol/L Urea Nitrogen 13 6 - 23 mg/dL Creatinine 0.46 (L) 0.50 - 1.05 mg/dL eGFR >90 >60 mL/min/1.73m*2 Calcium 9.3 8.6 - 10.6 mg/dL Manual Differential Result Value Ref Range Neutrophils %, Manual 56.5 40.0 - 80.0 % Lymphocytes %, Manual 34.3 13.0 - 44.0 % Monocytes %, Manual 4.6 2.0 - 10.0 % Eosinophils %, Manual 4.6 0.0 - 6.0 % Basophils %, Manual 0.0 0.0 - 2.0 % Seg Neutrophils Absolute, Manual 0.90 (L) 1.20 - 7.00 x10*3/uL Lymphocytes Absolute, Manual 0.55 (L) 1.20 - 4.80 x10*3/uL Monocytes Absolute, Manual 0.07 (L) 0.10 - 1.00 x10*3/uL Eosinophils Absolute, Manual 0.07 0.00 - 0.70 x10*3/uL Basophils Absolute, Manual 0.00 0.00 - 0.10 x10*3/uL Total Cells Counted 108 RBC Morphology No significant RBC morphology present Hemoglobin A1C Result Value Ref Range Hemoglobin A1C 4.9 see below % Estimated Average Glucose 94 Not Established mg/dL Coagulation Screen Result Value Ref Range Protime 14.5 (H) 9.8 - 12.8 seconds INR 1.3 (H) 0.9 - 1.1 aPTT 36 27 - 38 seconds Fibrinogen Result Value Ref Range Fibrinogen 213 200 - 400 mg/dL POCT GLUCOSE Result Value Ref Range POCT Glucose 100 (H) 74 - 99 mg/dL Assessment/Plan Principal Problem: Multiple myeloma, remission status unspecified (CMS/HCC) Principal Problem: Multiple myeloma, remission status unspecified (CMS/HCC) Mojgan Pérez is a 67 y.o. female with PMH of Htn, DMII, HLD, aortic stenosis, liver cirrhosis, andrefractory MM s/p multiple lines of therapy who is now a direct admit for C1 Teclistamab. 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 -Marrow 05/2023 1q+, 4p-, 13q/-13, 14q- and 16q- - 07/23/23: IgG 522, IgM 36, IgA 36, KFLC 1.34, LFLC 35.95 Treatment: [id number] Observation 2019 Palliative XRT both hips 800 cGy 04/10/2020 Velcade dex jennifer 07/31/2021 Radiation to soff tissue area of hip 3000 cGray 08/30/2021 Jennifer rev 12/2021 considered not a candidate for transplant (pancytopenia - liver cirrhosis) 12/2021 Jennifer/ Pomalidomide -marrow suppression 07/2022 carfilzomib - cyclophosphamide marrow suppression Now admitted for C1 Teclistamab, C1D1 on 08/04/23 HEME: #Pancytopenia, secondary to disease -Transfuse to keep hgb>7, plt> 10 -No signs of bleeding, or DIC on admission #LE swelling, R>L -No h/o DVT -Swelling is a chronic issue r/t R knee surgery, R fibula fracture and chronic R hip pain. No need for ultrasound FEN/GI Admission weight: 80.1kg Low pathogen diet Hypokalemia/hypomagnesemia. Repleted last 08/04/23 Home Omeprazole continued as Protonix #h/o KAPADIA -LFTs stable on admission -Daily LFT monitoring ID -Afebrile on admit, no signs of infx -Covid & MRSA negative on admit Ppx: Acyclovir 400mg BID #Recent UTI -Finished 7 days of Macrobid on Thursday -Denies urinary symptoms on admission CARDS ECHO (11/2022): LVEF 55-60%. Doppler measurements with impaired left ventricular relaxation. #h/o Aortic aneurysm -Follows with cardiology outpatient #HTN -Cont home Carvedilol 12.5mg BID -Cont home Lisinopril 5mg qd #HLD -Cont home Atorvastatin ENDO #DMII -Hold home Metfomin on admit -Hold home Ozempic -Start mild SSI MISC #Neoplasm Related Pain -Cont home Oxycodone IR 10mg q4hr PRN #Peripheral Neuropathy -Continue home Gabapentin 400mg TID PRN -Continue Duloxetine 60mg qd DISPO Full code, confirmed on admit Blood consent signed on admit Oncologist: Dr. Lindquist Access: Pilo Fernandez Plan to discharge 48 hrs after D5 dosing of Sarah Will have to come to main campus for first few Sarah doses (wkly) I spent 30 minutes in the professional and overall care of this patient. Antonella Pickens APRN-SALES DEVELOPMENT REPRESENTATIVE Associated attestation - Sarath Gamez MD - 08/05/2023 6:42 AM EDT This is a shared visit. I saw and evaluated the patient. I personally obtained the salazar and criticalportions of the history and physical exam or was physically present for salazar and critical portions performed by the certified nurse practitioner (SALES DEVELOPMENT REPRESENTATIVE). I reviewed the SALES DEVELOPMENT REPRESENTATIVE's documentation and discussedthe patient with the SALES DEVELOPMENT REPRESENTATIVE. I agree with the SALES DEVELOPMENT REPRESENTATIVE's medical decision making as documented in the SALES DEVELOPMENT REPRESENTATIVE'snote with the exception/addition of the following: Patient is a 67-year-old woman with a long history of lambda light chain multiple myeloma first identified as a MGUS in 2005, developing active myeloma in 2020, and now status post several lines of therapy inclusive of bortezomib, daratumumab, lenalidomide, pomalidomide, carfilzomib. She will now be receiving teclistamab therapy and is admitted for the week of inpatient observation to monitor forimmune effector side effects. Subjective: Reports in a good mood, ready to get therapy started denies any active infection symptoms, no abdominal issues Objective: Well-appearing middle-aged elderly woman lying in bed, no acute distress. Anicteric sclera, oral mucosa without lesions, normal respiratory rate, normal heart rate, abdomen nondistended, no lower extremity swelling Medications reviewed, in addition to your chemotherapy continuing several of her outpatient medications for chronic conditions Assessment and plan for the day: Lambda light chain multiple myeloma: Start teclistamab today, discussed the dose ramp-up with patient and her telephone mechanic's today as well as the salazar side effects we will be monitoring for her includingcytokine release syndrome and immune effector associated neurotoxicity, reviewed the long-term planfor weekly dosing. Otherwise patient will continue with her medications for her chronic conditions including hypertension, hyperlipidemia, type 2 diabetes, peripheral neuropathy documented in this [facility] Work Phone: 1(570) 588-232710-10-2023 Nurse Note* Bhavani Chris RN - 08/11/2023 8:14 PM EDT ICE score 10/10 * Joaquina Cordon RN - 08/10/2023 9:00 PM EDT ICE score 8/10. Pt unable to count backwards from 100 and handwriting is off from baseline. Team aware * Ro Fontanez RN - 08/09/2023 3:37 PM EDT CHEMO NOTE Pt. Received dose #3 subcutaneous tecvayli 121.5mg into right lower abdomen. Chemo dose independently verified against protocol at bedside with Sandra Boyce RN, all parameters WNL. ICE scores remain 10/10. No complaints at this time. Ro Fontanez RN * Ro Fontanez RN - 08/04/2023 4:00 PM EDT Chemo Note Pt. Received dose #1 teclistamab 4.9mg subcutaneously into left lower abdomen. Premedicated with 650mg tylenol, 50mg PO benadryl and 16mg PO dexamethasone. ICE score 10/10 prior to administration. Medication verified at bedside with Tracee Whitaker RN. Pt. Tolerated well without incident. documented in this [facility] Work Phone: 1(350) 904-272510-03-2023 Emergency department Note* Raina Ramirez, PjD - 08/04/2023 10:23 AM EDT Pharmacy Medication History Review Mojgan Pérez is a 67 y.o. female admitted for Multiple myeloma, remission status unspecified ([facility]). Pharmacy reviewed the patient's [id number] medications and allergies for accuracy. The list below reflectives the updated [employer] list. Please review each medication in order reconciliation for additional clarification and justification. Medications Prior to Admission Medication Sig Dispense Refill Last Dose acyclovir (Zovirax) 400 mg tablet Take 1 tablet (400 mg) by mouth 2 times a day. 08/04/2023 albuterol 2.5 mg /3 mL (0.083 %) nebulizer solution Take 3 mL (2.5 mg) by nebulization every 4 hours if needed for shortness of breath or wheezing. More than a month albuterol 90 mcg/actuation inhaler Inhale 2 puffs every 6 hours if needed for shortness of breath or wheezing. Past Week atorvastatin (Lipitor) 80 mg tablet Take 1 tablet (80 mg) by mouth once daily. 08/03/2023 carvedilol (Coreg) 12.5 mg tablet Take 1 tablet (12.5 mg) by mouth 2 times a day with meals. 08/04/2023 cholecalciferol (Vitamin D-3) 125 MCG (5000 UT) capsule Take 1 capsule (125 mcg) by mouth once daily. 08/03/2023 DULoxetine (Cymbalta) [address] capsule Take 1 capsule (60 mg) by mouth once daily. 08/04/2023 gabapentin (Neurontin) 100 mg capsule Take 1 to 2 capsules by mouth twice daily 08/04/2023 ondansetron ODT (Zofran-ODT) 8 mg disintegrating tablet Take 1 tablet (8 mg) by mouth every 8 hoursif needed for vomiting or nausea. Past Week oxyCODONE (Roxicodone) 10 mg immediate release tablet Take 1 tablet (10 mg) by mouth 4 times a day as needed for severe pain (7 - 10). 08/04/2023 potassium chloride ER (Micro-K) 10 mEq ER capsule Take 1 capsule (10 mEq) by mouth once daily. 08/03/2023 cyanocobalamin, vitamin B-12, 1,000 mcg tablet, sublingual Place 1 tablet (1,000 mcg) under the tongue once daily. 08/03/2023 fluticasone (Flonase) 50 mcg/actuation nasal spray Administer 1 spray into each nostril once daily as needed for rhinitis. Shake gently. Before first use, prime pump. After use, clean tip and replacecap. Past Week lisinopril 5 mg tablet Take 1 tablet (5 mg) by mouth once daily. 08/04/2023 metFORMIN (Glucophage) 500 mg tablet Take 1 tablet (500 mg) by mouth 2 times a day with meals. 08/03/2023 omeprazole (PriLOSEC) [address] capsule Take 1 capsule (40 mg) by mouth once daily. Do not crush or chew. 08/03/2023 semaglutide (Ozempic) 0.25 mg or 0.5 mg (2 mg/3 mL) pen injector Inject 0.5 mg under the skin 1 (one) time per week. 08/01/2023 The list below reflectives the updated allergy list. Please review each documented allergy for additional clarification and justification. Allergies Reviewed by Raina Ramirez, PharmD on 08/04/2023 Severity Reactions Comments Latex Medium Hives, Rash Tetracyclines Medium Hives, Rash Avelox [moxifloxacin] Low Rash Sources: Patient interview, [facility], [facility] heme onc clinic note 07/23/23, O[facility] Additional Comments: Patient previously on Tudorza, Advair, and Levemir per heme onc clinic note 07/23/23. Per patient, she no longer uses a maintenance inhaler at home and only uses albuterol as needed. Patient also states she is not currently using insulin (only Ozempic and metformin). Per [employer], patient has not filled albuterol nebulizer since 11/02/22 Per OARRS and [employer], patient most recently filled gabapentin 100 mg capsules (04/14/23) with directions take 1-2 capsules twice daily Raina Ramirez PharmD [facility] PGY-1 [facility] At Risk Specialist Medication reconciliation complete Please reach out via [employer] Chat for questions, or if no response call [phone] or [employer] [facility] documented in this [facility] Work Phone: [phone]) 936-245910-03-2023 History and physical note* Kevin Machado PA-C - 08/04/2023 2:30 AM EDT History Of Present Illness Mojgan Pérez is a 67 y.o. female with PMH of Htn, DMII, HLD, aortic stenosis, liver cirrhosis, andrefractory MM s/p multiple lines of therapy who is now a direct admit for C1 Teclistamab. Off note, patient was initially supposed to be admitted on 07/30 but admission was postponed secondary to patient being treated for a UTI. She had presented to the ED on 07/22 for episode of back pain that resolved shortly after but was incidentally found to have a UTI for which she finished a 7 day course of Macrobid on Thursday. On admission, patient reports feeling well overall. She denies fever, chills, headaches, vision changes, CP, SOB, N/V/D/C. Appetite is fine . Reports chronic hip pain secondary to her myeloma. Gait intact at baseline. Stable neuropathy in lower extremities. Denies recent falls or any sick contacts. Denies rashes or bleeding. Cancer History (per EMR review): Treatment Synopsis: She has been referred from Dr. Marinelli at [facility]. 2006 MGUS since 2005 for which she was followed at [facility] by Dr. Kumari, and then Dr. Cummings. 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 Marrow 05/2023 1q+, 4p-, 13q/-13, 14q- and 16q- [id number] Observation 2019 Palliative XRT both hips 800 cGy 04/10/2020 Velcade dex jennifer 07/31/2021 Radiation to soff tissue area of hip 3000 cGray 08/30/2021 Jennifer rev 12/2021 not a candidate for transplant (pancytopenia - liver cirrhosisO 12/2021 Jennifer/ Pomalidomide -marrow suppression 07/2022 carfilzomib - cyclophosphamide marrow suppression PMH: Aortic aneurysm KAPADIA: at some point she has been listed on liver transplant list COPD DM Fibromyalgia GERD HTN Iron deficiency Surgical hx: Hysterectomy appendectomy cholecystectomy Social Hx: Former smoker, quit 15 years ago. Denies alcohol or drug use Allergies: tetracyclines, latex, and moxifloxacin Review of Systems Constitutional: Negative for activity change, appetite change, chills and fever. HENT: Negative for congestion, rhinorrhea, sore throat and trouble swallowing. Eyes: Negative for visual disturbance. Respiratory: Negative for cough, shortness of breath and wheezing. Cardiovascular: Positive for leg swelling. Negative for chest pain and palpitations. LE edema, R>L Gastrointestinal: Negative for abdominal distention, abdominal pain, blood in stool, constipation, nausea and vomiting. Endocrine: Negative for polyuria. Genitourinary: Negative for decreased urine volume, dysuria, flank pain, frequency, hematuria, pelvic pain and urgency. Musculoskeletal: Positive for back pain and myalgias. Negative for arthralgias. Hip pain, chronic Skin: Negative for color change and rash. Neurological: Negative for dizziness, weakness, light-headedness and headaches. Physical Exam Constitutional: Appearance: Normal appearance. HENT: Head: Normocephalic and atraumatic. Mouth/Throat: Mouth: Mucous membranes are moist. Eyes: Extraocular Movements: Extraocular movements intact. Conjunctiva/sclera: Conjunctivae normal. Pupils: Pupils are equal, round, and reactive to light. Cardiovascular: Rate and Rhythm: Normal rate and regular rhythm. Pulses: Normal pulses. Heart sounds: No murmur heard. No friction rub. No gallop. Pulmonary: Effort: Pulmonary effort is normal. No respiratory distress. Breath sounds: Normal breath sounds. No stridor. No wheezing, rhonchi or rales. Abdominal: General: Abdomen is flat. Bowel sounds are normal. There is no distension. Palpations: Abdomen is soft. Tenderness: There is no abdominal tenderness. Hernia: A hernia is present. Musculoskeletal: General: Swelling present. Normal range of motion. Cervical back: Normal range of motion. Right lower leg: Edema present. Skin: General: Skin is warm and dry. Neurological: General: No focal deficit present. Mental Status: She is alert and oriented to person, place, and time. Psychiatric: Mood and Affect: Mood normal. Last Recorded Vitals Blood pressure 152/84, pulse 87, temperature 36.4 C (97.5 F), temperature source Temporal, resp. rate 18, height 1.574 m (5' 1.97 ), weight 80.1 kg (176 lb 9.4 oz), SpO2 95 %. Relevant Results Scheduled medications acyclovir, 400 mg, oral, BID atorvastatin, 80 mg, oral, Daily carvedilol, 12.5 mg, oral, BID with meals cholecalciferol, 125 mcg, oral, Daily DULoxetine, 60 mg, oral, Daily gabapentin, 400 mg, oral, TID insulin lispro, 0-10 Units, subcutaneous, TID with meals pantoprazole, 40 mg, oral, Daily before breakfast potassium chloride CR, 10 mEq, oral, Daily Continuous medications PRN medications PRN medications: albuterol, albuterol, dextrose, dextrose, glucagon, ondansetron ODT, oxyCODONE, polyethylene glycol Results for orders placed or performed during the hospital encounter of 08/03/23 (from the past 24 hour(s)) CBC and Auto Differential Result Value Ref Range WBC 1.6 (L) 4.4 - 11.3 x10*3/uL nRBC 0.0 0.0 - 0.0 /100 WBCs RBC 3.01 (L) 4.00 - 5.20 x10*6/uL Hemoglobin 9.5 (L) 12.0 - 16.0 g/dL Hematocrit 30.1 (L) 36.0 - 46.0 % MCV 100 80 - 100 fL MCH 31.6 26.0 - 34.0 pg MCHC 31.6 (L) 32.0 - 36.0 g/dL RDW 15.5 (H) 11.5 - 14.5 % Platelets 30 (LL) 150 - 450 x10*3/uL MPV 10.1 7.5 - 11.5 fL Immature Granulocytes %, Automated 0.0 0.0 - 0.9 % Immature Granulocytes Absolute, Automated 0.00 0.00 - 0.70 x10*3/uL Magnesium Result Value Ref Range Magnesium 1.66 1.60 - 2.40 mg/dL Uric Acid Result Value Ref Range Uric Acid 4.2 2.3 - 6.7 mg/dL Hepatic Function Panel Result Value Ref Range Albumin 3.6 3.4 - 5.0 g/dL Bilirubin, Total 0.9 0.0 - 1.2 mg/dL Bilirubin, Direct 0.3 0.0 - 0.3 mg/dL Alkaline Phosphatase 83 33 - 136 U/L ALT 16 7 - 45 U/L AST 21 9 - 39 U/L Total Protein 5.2 (L) 6.4 - 8.2 g/dL Lactate Dehydrogenase Result Value Ref Range LDH 194 84 - 246 U/L Coagulation Screen Result Value Ref Range Protime 15.1 (H) 9.8 - 12.8 seconds INR 1.3 (H) 0.9 - 1.1 aPTT 139 (HH) 27 - 38 seconds Phosphorus Result Value Ref Range Phosphorus 4.1 2.5 - 4.9 mg/dL Basic Metabolic Panel Result Value Ref Range Glucose 110 (H) 74 - 99 mg/dL Sodium 144 136 - 145 mmol/L Potassium 3.5 3.5 - 5.3 mmol/L Chloride 108 (H) 98 - 107 mmol/L Bicarbonate 28 21 - 32 mmol/L Anion Gap 12 10 - 20 mmol/L Urea Nitrogen 13 6 - 23 mg/dL Creatinine 0.46 (L) 0.50 - 1.05 mg/dL eGFR >90 >60 mL/min/1.73m*2 Calcium 9.3 8.6 - 10.6 mg/dL Manual Differential Result Value Ref Range Neutrophils %, Manual 56.5 40.0 - 80.0 % Lymphocytes %, Manual 34.3 13.0 - 44.0 % Monocytes %, Manual 4.6 2.0 - 10.0 % Eosinophils %, Manual 4.6 0.0 - 6.0 % Basophils %, Manual 0.0 0.0 - 2.0 % Seg Neutrophils Absolute, Manual 0.90 (L) 1.20 - 7.00 x10*3/uL Lymphocytes Absolute, Manual 0.55 (L) 1.20 - 4.80 x10*3/uL Monocytes Absolute, Manual 0.07 (L) 0.10 - 1.00 x10*3/uL Eosinophils Absolute, Manual 0.07 0.00 - 0.70 x10*3/uL Basophils Absolute, Manual 0.00 0.00 - 0.10 x10*3/uL Total Cells Counted 108 RBC Morphology No significant RBC morphology present Assessment/Plan Principal Problem: Multiple myeloma, remission status unspecified (CMS/HCC) Mojgan Pérez is a 67 y.o. female with PMH of Htn, DMII, HLD, aortic stenosis, liver cirrhosis, andrefractory MM s/p multiple lines of therapy who is now a direct admit for C1 Teclistamab. 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 -Marrow 05/2023 1q+, 4p-, 13q/-13, 14q- and 16q- - 07/23/23: IgG 522, IgM 36, IgA 36, KFLC 1.34, LFLC 35.95 Treatment: [id number] Observation 2019 Palliative XRT both hips 800 cGy 04/10/2020 Velcade dex jennifer 07/31/2021 Radiation to soff tissue area of hip 3000 cGray 08/30/2021 Jennifer rev 12/2021 considered not a candidate for transplant (pancytopenia - liver cirrhosis) 12/2021 Jennifer/ Pomalidomide -marrow suppression 07/2022 carfilzomib - cyclophosphamide marrow suppression Now admitted for C1 Teclistamab, C1D1 on 08/04 HEME: #Pancytopenia, secondary to disease -Transfuse to keep hgb>7, plt> 10 -No signs of bleeding, or DIC on admission #LE swelling, R>L -No h/o DVT -DVT U/S ordered, pending FEN/GI Admission weight: 80.1kg Low pathogen diet Replete electrolytes PRN Home Omeprazole continued as Protonix #h/o KAPADIA -LFTs stable on admission -Daily LFT monitoring ID -Afebrile on admit, no signs of infx -Covid, MRSA pending Ppx: Acyclovir 400mg BID #Recent UTI -Finished 7 days of Macrobid on Thursday -Denies urinary symptoms on admission CARDS ECHO (11/2022): LVEF 55-60%. Doppler measurements with impaired left ventricular relaxation. #h/o Aortic aneurysm -Follows with cardiology outpatient #HTN -Cont home Carvedilol 12.5mg BID -Cont home Lisinopril 5mg qd #HLD -Cont home atorvastatin ENDO #DMII -Hold home Metfomin on admit -Hold home Ozempic -Start mild SSI MISC #Neoplasm Related Pain -Cont home Oxycodone IR 10mg q4hr PRN #Peripheral Neuropathy -Continue home Gabapentin 400mg TID PRN -Continue Duloxetine 60mg qd DISPO Full code, confirmed on admit Blood consent signed on admit Oncologist: Dr. Lindquist Access: Pilo fernandez I spent 60 minutes in the professional and overall care of this patient. Kevin Machado PA-C [facility] Work Phone: [phone]) [phone] Evaluation note* Encounter Date Diagnosis Assessment Notes Treatment Notes Treatment Clinical Notes Jul, Multiple myeloma (ICD-10 - C90.0 0) Currently off treatment; has appointment with myeloma specialist 07/23ancer associated pain (ICD-10 - G89.3)OARRS reviewed, consistent with Rx. Mojgan reports some increase in pain, but has been able to maintain use of oxycodone at 30-40 mg/day (MME 50-60 mg/day). Continue Oxycodone 10 mg QID PRN (reminder set for refill when due) F/U here 3 months - treatment options pending meeting with Dr. Noble Jul,dvanced care planning/counseling discussion (ICD-10 - Z71.89)10' minute discussion regarding HCPOA and DNR order and options. Choices booklet given to Mojgan for further consideration and discussion with her family. [employer] Other 09-06-2023 Progress note Author Fabiola Marinelli [facility] July 08, 2023 1:34pmNote Date/TimeSept2022 10:53[facility] [place] [id number] Hem/Onc Follow Up Note - OP Signed Patient: Mojgan Pérez MR#: [id number] : 1955 Acct:[id number] Age/Sex: 67 / F Type: REG RCR Copies to: MD Yinka Downey MD Dr. Koen van Besien~ Subjective Date/Time of Service: Date of Service: 07/08/2023 Time of Service: 10:53 Chief Complaint: Patient is here for a 1 month follow up visit follow up visit for multiple myelomaand go over labs HPI: 07/08/2023: Mojgan had her virtual consultation with Dr. Lindquist of [facility] malignant[facility]ology on 06/26/2023. He had discussed treatment optionswith her given her worsening cytopenias and generalized pain and fatigue. Possible by specific monoclonal antibody therapy versus CAR-T therapy. He also remarked that her prior bone marrow biopsy may have underestimated the degree ofher myeloma since it may have been performed at the site of prior radiation. [facility]23 to evaluate her in person and potentially consent her for 1 of these therapy options. I did informthe patient that she may require repeat bone marrow biopsy at that time. We arecontinuing to hold her active therapy with Kyprolis and Cytoxan due to persistent cytopenias, most recently her white blood cell count is 1600, absolute neutrophil count 800, platelet count 26,000. Although she does have extremity bruising she does not have any concerning bleeding from any orif ice and has not had any active infection. She will follow-up with me tentatively in3 months with CBC, CMP, and myeloma labs transfer her care to Dr. Lindquist forfurther therapy at [facility]. It is possible that if she tolerates antibody treatment well that we may be able to transfer her therapy her low 35- minute follow-up for coordination of care with [facility]. 06/10/2023: Mojgan is unaccompanied today--scheduled to see Dr. Lindquist tomorrow but she noted a family emergency and feels she cannot travel there tomorrow. I contacted him and he agrees to changeto a virtual visit. Increased bruising but no epistaxis, mucosal bleeding, or bright red blood per rectum. No worsening of bone pain or baseline neuropathy. Platelets remain low30,000 to high 20,000 range. WBC 1700 with ANC about 1000. Uptrending lambda light chain now to 241. I asked Dr. Lindquist to evaluate for potential bispecific antibody therapy or CAR-T option for myeloma. I will continueto hold therapy for another month (last Kyprolis/Cytoxan given 6 months ago) and will f/u around 4-6 weeks to review recommendations from Dr. Lindquist and f/u myeloma labs. Moderate complexity 30 minute f/u. 03/11/2023: Mojgan is here for follow-up of bone marrow aspiration and biopsy performed in interventional radiology on 02/24/2023 as well as follow-up F-18 PET/CT. She has continued right hip pain andsaw nurse practitioner Pearl Holder the day after her bone marrow biopsy. She started oxycodone 10 mg 4 times daily as needed with continued gabapentin 400 mg on an as-needed basis. She previously received radiation to the right hip in July-August 2021 over 15 elapsed days--I am reluctant to repeat radiation to this area unless pain is refractory to oral medications. The PET/CT from 03/09/2023 showed relatively patchy abnormal radiotracer accumulation in the skeletal structures that similarto prior exam consistent with her multiple myeloma but no new areasof radiotracer accumulation. Theright hip uptake looks relatively stable from prior PET/CT in March 2022. The bone marrow aspirate and biopsy showed low cellularity for age about 10% with 4% clonal plasma cells by immuno chemistry and 0.7% of lambda mononuclear plasma cells on flow cytometry with a population of atypical CD10 positive B cells. She had presence of stainable iron stores 1+and no evidence of amyloid deposition. Her peripheral blood platelet count is now 28,000 and she does not have any active bleeding. She did have extensive bruising after her bone marrow biopsy. She has not had any recent infections and received 1 treatment with IVIG in early January. -- At this time I recommend holding active therapy for her myeloma given her cytopenias and plasma cells less than 10%. We will continue to follow CBC every2 weeks for her platelet count this month and if relatively stable continue CBC monthly. I will also send vitamin B12, folate, copper, ceruloplasmin, and iron panel to see if we can optimize her from a nutritional standpoint to improve herthrombocytopenia. This may also be due to her hepatic steatosis. Her next follow-up with me with myelomalabs to include quantitative immunoglobulins and kappa/lambda light chain analysis will be in 3 months or sooner as needed. Thisis a high complexity visit over 45 minutes for review of bone marrow biopsy and imaging results, discussion of continuing to hold further therapy (Kyprolis/Cytoxan last given December 2022), and plan nutritional labs with follow-up phone call with results. 02/18/2023: One month followup--still off active therapy with Kyprolis/Cytoxan past 2 1/2 months dueto persistent thrombocytopenia and initiation of IVIG for admission for urosepsis 01/28/2023. Despite off therapy, she has persistent low platelets 35,000 without bleeding. Uptrending kappa light chain to 60s. Notes recurrent right hip pain--I recommended repeating F-18 PET/CT to determine if bony progression with right hip/pelvis/femur film. Will also set up IR guided bone marrow biopsy--review results in 3 weeks and decide whether to resume active therapy. If lytic lesion at hip/acetabulum/femur concerning for potential fracture, will refer to orthopedics for possible prophylactic kenton. Stillno contact from Dr. Benavidez for bispecific antibody therapy. Moderate complexity 35 minute followup. 01/09/2023: Here for followup after consult with Dr. Benavidez last week. Progress note is still pending, but we communicated by secure text regarding her evaluation. Myeloma labs are stable with mild increase of serum kappa from 40s to 60s range. Platelet count now to 68 and ANC 900 since holding Kyprol is/Cytoxan since 12/05/2022 for cytopenias. We decided to hold 2 more weeksthen resume Kyprolis at same dose 20mg/m2 and further decrease Cytoxan to 40% dose overall when we resume dose. Next line of therapy at progression may be CD3/BCMA myeloma bispecific antibody Teclistamab (needs to be hospitalized firstweek due to risk of cytokine release syndrome). Plan to resume likely in 2 weeks if adequate blood counts and no infection. F/u with myeloma labs (CBC, CMP, quant immunoglobulins and kappa/lambda light chains) in 2 months, sooner prn. Moderate complexity 30 minute followup. 12/26/2022: Mojgan continues to have nasal drainage sinus congestion and pain despite completing 2 weeks of amoxicillin and no air-fluid level on CT Sinuses 11/30/2022. We gave last dose of Kyprolis/Cytoxan (60% dose) on 12/05/2022. Peripheral neuropathy is stable, no diarrhea, no skin rashes. We reviewed her labs with ANC 900, platelets 37,000 and she notes easy bruising but no nasal/oral mucosal, GI or bleeding. I will again hold Kyprolis/Cytoxan another 2 weeks and give 2 weeks of Augmentin 875/125mg bid for her persistent sinus infection and Diflucan 100mg daily for vaginal candidiasis. Will formallyrefer back to Dr. Benavidez to see if she is a candidate for the CD3/BCMA myeloma bispecificantibody therapy which she would need to receive at [facility]. F/u with me in 2 weeks--if persistent cytopenias we may need torepeat her bone marrow biopsy (if now performed by Dr. Benavidez). She agrees with this plan over this 35 min moderate complexity followup visit. 11/26/2022: Mojgan is here for monthly followup on modified CYKLONE therapy. Notes increased frontal headaches over the past with with nasal congestion--sending for sinus CT and 2 week course of Augmentin bid. Platelet count recently dropped as low as 25-31,000 without bleeding (currently 40,000), WBC to 1300 with ANC 700. No current fever, chills or symptoms of infection. Prior dose reductions of Kyprolis to 20mg/m2 weekly with cyclophosphamide 240mg/m2 weekly). Echo with normal EF 55-60%. We will further dose reduce cyclophosphamide to 180mg/m2 (overall 40% dose reduction) and maintain Kyprolis at 20mg/m2. She has ongoing decline of lambda light chains over the past 6 months indicating response. I discussed her case with Dr. iPter Benavidez who notedtherapy could be held if worsening cytopenias. For now continue monthly followup with myeloma labs (quant immunoglobulins and kappa/lambda light chains). Bleeding precautions and f/u sooner if new symptoms arise. Moderate complexity 35-minute visit for review of complex labs and adjustment of chemotherapy regimen. 10/29/2022: I asked Mojgan to return today due to cytopenias on labs and discussion of either dosereduction or changing therapy. She notes that over the last 2 weeks she has had cough, body aches, worsening fatigue, but no fever. She was diagnosed with a non-COVID viral syndrome. Her symptoms arestarting to get better but she has more significant cytopenias with absolute neutrophil count of only 400 with total white blood cell count 1000. In addition her platelet count is 31,000 she has not had any active bleeding issues. We were unable to contact her to tell her not to come in for chemo but I decided to see her today since she was last evaluated by nurse practitioner last 2 visits. Hermyeloma labs show relatively stable lambda light chains which appear to have responded since start oftherapy in July. She is due for her echocardiogram and due to her cytopenias we will hold therapy today and plan 1 level dose reductions of both cyclophosphamide (from 300 to 240 mg/m2 IV weekly)with Kyprolis dose reduction (from 27 to 20mg/m2 IV weekly). She has been off therapy past 2 weeks due to cytopenias. If she is unable to resume therapy we may consider an alternate therapy such as [place]. She is otherwise in agreement with current plan of care. Moderate complexity 35-minute visitfor review of complex labs and adjustment of chemotherapy regimen. 10/15/2022: Mojgan is here for follow-up for her multiple myeloma on modified CYKLONE therapy. Shecontinues to do well and remains active at home. She deniesshortness of breath, chest pain, nausea,vomiting, diarrhea or constipation. Sheis eating and drinking well. No fevers, chills, sweats, bleed ing or rash. She does note mild tongue soreness and on exam it appears she may be developing thrush, very mild currently on the tongue only. We will prescribe nystatin for this. Labs are reviewed andstable overall, ok for treatment. She will follow-upin 4wks with Dr. Marinelli with repeat labs and treatment. 09/17/2022: Mojgan is here for follow-up on modified CYKLONE therapy for her multiple myeloma. Shecontinues with fatigue, but otherwise no new complaints. She has no s/s of infection, no shortness of breath, chest pain, n/v/d or other concerns. In review of her labs, her WBC are 1.4, ANC 0.6 and platelets 43,000. Per Dr. Marinelli, given no s/s of infection and she otherwise feels well, she is okfor treatment. We discussed signs to report related to infection such as fever, chills, etc. and she will call with any concerns. We will follow-up in 3wks withrepeat labs. 08/20/2022: Mojgan is here for 3-week follow-up on modified CYKLONE therapy (cyclophosphamide 300 mg/m2 IV weekly, dexamethasone 20 mg IV weekly, and carfilzomib now 56 mg/m2 IV weekly). Baseline echocardiogram 07/18/2022 showed normal ejection fraction 60 to 65%. I discussed her case with Dr. Benavidez who advised that despite her significant thrombocytopenia she should be treated withfull dose cyclophosphamide/carfilzomib and may support with transfusions as needed. The patient's lowest platelet counts were in the 30,000's after her first week of therapy but now is up to 56,000. She has not hadany clinical bleeding. She also has persistent leukopenia 1900 today with absolute neutrophil countnow 1000. At this point as long as she does not have any significantsymptoms of therapy or signs ofinfection or active bleeding we will continue her current dosing. She otherwise notes mild fatigue but no other toxicities. Prior skin rash on Pomalyst has resolved. She will follow-up in 3 weeks fortoxicity check with nurse practitioner and we will order her restaging myeloma labs with serum protein electrophoresis with immunofixation, quantitative immunoglobulins, and kappa/lambda light chain ratio. She may return sooner if new issues arise. Moderate complexity follow-up over 30 minutes to ad dress cytopenias on CYKLONE therapy. 07/10/2022: Mojgan is here for 2-month follow-up of myeloma labs. No changes in medical history and platelet count remains in the 40-50,000 range without bleeding. We held her Pomalyst (as well as daratumumab) this week due to absolute neutrophil count of 300 without any recent infections. She previously held it for 1 week due to neutropenia, took 1 tablet, then had to hold a second week due to neutropenia. We reviewed her kappa/lambda light chain ratio which continues to progress in the wrong direction (total lambda light chains now increased from 109 to 125.7 with ratio from 0.11 to 0.08). Her progressive cytopenias and worsening light chains likely reflects progression of myeloma. Wecouldrepeat her bone marrow biopsy but her most recent bone marrow biopsy on 10/09/2021 showed hypercellular bone marrow (30%) with slight megakaryocytic and granulocytic hyperplasia and only 1.5% plasma cells (Lambda restricted by flow cytometry). This likely would not change her current management and I discussedher case with Dr. Benavidez of malignant hematology who recommended considering carfilzomib (Kyprolis) with cyclophosphamide. I will contact patient to coordinate baseline echocardiogram forKyprolis and likely she will require dosereductions for her underlying hepatic dysfunction and chronic cytopenias. AfterI reviewed dosing with Dr. Benavidez and pharmacy and review her echocardiogram, wewill coordinate follow-up for change in therapy and chemotherapy consent. For now we will continue daratumumab with altered dose of Pomalyst to 2 mg twice weekly ( and Mondays) until change in therapy. I will not likely send dose reduction of Pomalyst due to planned change in therapy. Moderate complexity 35 minutes for coordination of care. 05/07/2022: Improved rash on 2 mg of Pomalyst, now mild pruritus. Platelet count is 48,000 without bleeding issues. Continues weekly prednisone. Daratumumab isnow monthly since early April. Repeat kappa/lambda light chain ratio slightly higher (106 to 109) But the upward trend is starting to flatten out. F-18 Axumin PET/CT shows no new lesions, relatively stable from 1 year ago. For now given her stable symptoms and pronounced cytopenias, we will continue her current dosing daratumumab/Pomalyst/dexamethasone. Next follow-up with me in 2 months. She will return sooner for issues arise. Moderate complexity visit over 35 minutes. 04/09/2022: Mojgan continues every 2-week durvalumab with Pomalyst now 2 mg daily (dose reduced due to diffuse rash). She is now day 14 of the cycle and isnoted to have platelet count of 40,000 (no associated mucosal bleeding, bright red blood per rectum, or hematuria). No recurrent rash on this dose. She continues her weekly prednisone. I recommended changing her schedule of Pomalyst to 2 mg daily for days 1 through 14, off days 15 through 28 cycle and continuing daratumumab. Her most recent immunoglobulins have shown a steady trend upward for lambda light chain and decrease of kappa/lambda light chain ratio, however since she is now stabilizing her dosing of daratumumab/Pomalyst/dexamethasone I recommend continuing her current dosing for1 more cycle with repeat kappa/lambda light chain ratio in another month. In addition I will set her up for F-18 Axumin PET/CT to compare to PET/CT from 1 year ago (her skeletal survey showed no lesions 6 months ago). She denies any current bone pain.She will proceed with daratumumab dose as previously orderedtoday. 03/19/2022: Mojgan is here for follow-up after adverse cutaneous reaction to her first cycle of Pomalyst. She noted that after starting her first dose of Pomalyst 3 mg daily on 03/05/2022 that about 1 week later on 03/13/2022 she had a diffuse rash all over that was pruritic with increased erythema. She did not have nausea, vomiting, constipation, diarrhea, dyspnea, or any other adverse reactions. She did have a decline of platelet count to 41,000 this week which may be due to her Pomalyst. She called the pharmacy and was instructed to discontinue Pomalyst on 03/13/2022. Her rash has mostly resolved with no furtherpruritus but she still has a few macular lesions over the legs. She has been using Benadryl and topical cortisone cream with improvement of the rash. Otherwise her laboratories are stable. She does have an increased kappa/lambda light chain ratio from 03/05/2022 but this was her first day of therapy. I recommended resuming Pomalyst at next dose level 2 mg daily as soon as new medic ation arrives for 3 weeks on 1 week off. If she has recurrent rash she will again stop and we will consider further dose adjustment. Due to her thrombocytopenia we will hold her daratumumab today andconsume with first day of Pomalyst next week. She may follow-up in about 3 to 4 weeks, possibly with virologist covering at that time. Patient expressed understanding. 02/19/2022: Mojgan is here for follow-up--no new symptoms but her platelet countdropped to 48,000 last week and we are again holding her Revlimid. She has not had any bleeding or infection recently, but she has had uptrending lambda light chains and we discussed changing her therapy from lenalidomide to pomalidomide and continuing her daratumumab which is currently every other week. Her only other concern is constipation which is likely related to her pain medications. ANC was 800 today. --Today we reviewed chemotherapy counseling for lenalidomide in combination withdaratumumab/dexamethasone (stopping Revlimid). Common toxicities were reviewed to include allergic reactions, myelosuppression, thrombosis, fatigue, nausea, vomiting, constipation, diarrhea, mouth sores, and risk of secondary malignancies. Other toxicities may include pneumonitis, neurologic, hepatic andrenal toxicities. The patient signed informed consent and will follow-up as directed. Planning a trip to [place] on March 06, therefore we will hold Revlimid until arrival of her pomalidomide, then have oral chemotherapy visit. We are starting pomalidomide at 3 mg daily days 1 through 21 every 28 days due to baseline liver dysfunction. Follow-up cycle 1 week 2. We will recheck her baseline myeloma labs on start day of pomalidomide with daratumumab. 01/22/2022: Mojgan has no new complaints. She was seen by Dr. Benavidez at for evaluation for transplant and CAR-T options but given her profound thrombocytopenia, neither of these options are felt tuyet optimal for her. She has had gradual worsening of her lambda light chains without any change of r enalfunction or hypercalcemia. Her chronic thrombocytopenia has remained in the 40-50,000 range which is lower than her prior baseline. I reviewed her options with Dr. Benavidez and it is difficult to assess best options due to her chronic thrombocytopenia but standard of care at this point would be tocontinue her daratumumab and transition from the lenalidomide to pomalidomide. We will follow closely with weekly CBCs to determine if thrombocytopenia worsens on thisregimen. I will defer changing her regimen for 1 month since she is starting a new cycle of lenalidomide and has had slow progression of her lambda light chains. She will return in 1 month and will discuss pomalidomide and signed inf ormed consent. Patient is in agreement with this plan. 12/18/2021: Mojgan is here for 3-month follow-up. She has not had any significant changes in medical history other than testing positive for coronavirus infection in early November 2021. She has not been immunized for coronavirus. She notes persistent fatigue but no bone pain. No other recent infections or bleeding episodes. She recently changed from weekly to now every 2 weeks daratumumab 16 mg/kg and remains on low-dose lenalidomide 5 mg daily for2 weeks on 1 week off due to prior thrombocytopenia worsening. October 2021 skeletal survey showed no osteolytic lesions suggestive of myeloma. Initially she had improvement of her platelets to 70-100,000 but today platelets are down to 54,000. She also had some improvement of leukopenia but this is again down to 2800 with ANC 1300 today. Urinerandom M spike is not observed, but she has had progressive increase of her lambda light chains from 30 in December 2020 to 60.2 in October 2021. [place] lambda ratio has also started to decline to 0.21 in October 2021. For now I'm continuing her daratumumab with Revlimid at current dosing, but I contacted Dr. Benavidez at [facility] for CAR-T cell eligibility. If he has recommendations to change her therapy, I will let her know. Otherwise I will have her follow-up with me in 1 month (she will have repeat myeloma labs 1 week prior to visit). 09/20/2021: After telephone consultation with Dr. Benavidez at , we resumed repeat loading doses of weekly daratumumab 16mg/kg and changed to low dose lenalidomide 5mg daily. She has had 2 courses of antibiotics for sinus infection over the past month and was noted to have neutropenia with ANC 900, platelets 44,000 week 2 of Revlimid, therefore this was held for one week and resumed Thursday after ANC returned to 1000. Platelet counts have persisted at 40-50,000 range without active bleeding. Otherwise tolerating therapy well. Still improved hip pain and ambulation after recent course of palliative radiation therapy. For now we will continue Daratumumab with Revlimid and Dexamethasone as ordered with weekly CBC. Gradually increasing lambda light chains--pending evaluation at for CAR-T celltherapy eligibility (has not yetbeen contacted for appointment). 4 week f/u with me with CBC, CMP, and myeloma labs (follow quant immunoglobulins and [place]/Lambda light chain ratio with skeletal survey in 2 weeks so results available for appointment). 08/30/2021: Mojgan is here for 2-week follow-up for completion of her palliative radiation therapywith significant improvement of pain in her right hip and pelvis. We sent her for echocardiogram performed 08/23/2021 at [facility] [place] as baseline for possible Kyprolis therapy. This returned with ejection fraction 60% which is normal with grade 1 left ventricular diastolic dysfunction and 1+ tricuspid valve regurgitation and trace to 1+ aortic valve regurgitation.Otherwise unremarkable. I discussed her case with Dr. Benavidez of malignant hematology at [facility]. He advised against Kyprolis therapy given her underlying liver dysfunction and recommended repeating loading doses of daratumumab weekly as well as low-dose lenalidomide which we will start at 5 mg daily since she has chronic thrombocytopenia. We will send for CAR-T therapy as a possible therapeutic option. The patient agreed with changing daratumumab to weekly and we will haveher sign consent next week for change to low-dose lenalidomide therapy. Next follow-up with me will be in about 2 weeks for week 2 lenalidomide with daratumumab. 08/16/2021: One month followup, she recently completed palliative radiation therapy to right hip and pelvis. Platelet count still in 50,000 range with increased bruising but no bleeding. Still has some pain in right hip but slowlyimproving after radiation therapy. Slowly worsening lambda light chain --she is scheduled for ECHO next week. We discussed possibly changing therapy from Daratumumab, Velcade, Dexamethasone to Kyprolis, low dose lenalidomide, dexamethasone if adequate cardiac function. I will discuss this with Dr. Benavidez for dosing and determine if CAR-T therapy is another possible option (although we may be limited due to chronic thrombocytopenia and liver disease). Followup 2-3 weeks to review results and possible consent for change in therapy. 07/17/2021: 2-month follow-up on multiple myeloma. She reports that Thursday she developed severe painin the right leg that started proximal to the knee creating it to the hip. She had increased pain with weightbearing on the right and has been using a walker at home secondary to this. She did not feel a pop or shift in ambulation, but has been using her Percocet for pain control at home. In reviewing her laboratories platelet count remains in the 52,000 range and she is otherwisPe tolerating daratumumab well. I recommended sending for right hip, femur, and knee plain film imaging that did not show any fracture. She does have a gradually rising lambda light chain but no other significant changes in her labs. I reviewed her case with Dr. Cheng of orthopedic surgery who also reviewed her prior PET/CT showing uptake in this area. We will obtain a right hip MRI, keep her completely nonweightbearing on the right leg with walker for transfers and she has an urgent orthopedic follow-up following her MRI. I will follow-up with her in 1 month to review management and we will determine if she requires prophylactic kenton for stability of the hip based on herMRI. 05/24/2021: Here to followup 05/03/2021 bone marrow biopsy--noted to have decreased cellularity 25%, flow cytometry with 0.2% plasma cells and a 1.5% monoclonal B- cell population. FISH showed 13q and 1qabnormalities but normal cytogenetics. No myelodysplasia seen. I reassured her that recent thrombocytopenia is more likely related to splenic sequestration from liver disease and not worsening myeloma. For now continue current regimen. Will alsorecheck B12, folate, and iron profile with next labs--followup in 2 months with myeloma labs, sooner prn. 04/24/2021: 1 month followup to review PET/CT. Over the past 2 days, she notes episodes of sharp left sided neck pain over sternocleidomastoid muscle and mastoid area. No radiculopathy down left upperextremity. No new side effects of Daratumumab. F18 PET/CT shows largely unchanged diffuse uptake through multiple bony sites in axial and articular skeleton. Lambda light chains risingover past 2 month and decline of platelet count to 57,000 without bleeding. MRIof thoracic spine did not show significant thoracic canal stenosis. Due to worsening neck pain with extensive uptake on F18 PET/CT--we will send for cervical MRI. Palliative medicine has increased Percocet to tid. We will repeat bone marrow biopsy due to rising lambda light chain and falling platelet count to determine if progression of myeloma noted. This will be scheduled in the next 1-2 weeks. 03/28/2021: 2 month followup for multiple myeloma. More recently notes neck andleft shoulder pain. Fatigue and constipation stable. Labs show stable anemia and thrombocytopenia. Serum M-spike now asymmetric gamma (no quantifiable spike). Slowly improving IgG to near normal. [place]/lambda light chain ratio normal with mildly increased lambda light chains. MRI of thoracic spine for evaluation of increasing left shoulder pain. For now we will continue current dosing of Daratumumab and recheck F18 PET/CT for response in late April 2021. 01/21/2021: Mojgan is accompanied by her daughter for 2 month followup--now Daratumumab maintenance. She notes persistent fatigue and recently added as needed laxatives to stool softener for management of constipation. Persistent left hand pain--correlates to an area of bone uptake on PET/CT. Overall F18 PET/CT appears stable with no new areas if FDG avidity (still extensive bone FDGuptake). We reviewed prior plain xrays of left hand from November--she agrees toevaluation by orthopedic surgery (determine if biopsy or steroid injections). M-spike and kappa/lambda light chains pending. CBC (platelets 60-70,000); CMP stable. Will followup in 2 months with exam and labs. 11/26/2020: Mojgan is accompanied by her daughter for 2 month followup--now Daratumumab maintenance. Stable leukopenia/low platelet 70,000. Notes 3 days of hematuria and mild dysuria. Sending UA and possible culture. Otherwise no new bone pain. Blood sugars stable. M-spike and kappa/lambda light chain ratiostable. Next f/u 2 months after one year f/u PET/CT to determine response to therapy. 09/24/2020: Mojgan presents (accompanied by her daughter) for cycle 8, week 2 followup [id number] mg/kg IV weekly, Dexamethasone 20mg weekly, and Velcade 0.7 mg/m? now sq once weekly for every 3-week cycle (21 days). She notes neuropathy symptoms are stable. Tolerating therapy well without fatigue. No bleeding and thrombocytopenia stable in 60-70,0000 range. On 10/02 she will be due for maintenance therapy with Daratumumab alone once per month. I will f/u with her in 2 months with myeloma labs, sooner as needed. Velcade and Dexamethasone will be stopped after 8 cycles. 08/13/2020: Mojgan is here for cycle 6, week 2 (day 14) daratumumab 16 mg/kg weekly, Velcade 0.7 mg/m? now sq once weekly for every 3-week cycle (21 days), and dexamethasone 20 mg weekly. No new symptoms--improving thrombocytopenia to 79,000 and improved leukopenia. 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 Still has improvement of M-spike, IgA normal and decreased lambda light chain and K/L ratio. We discussed that week 25 in Oct she will change to monthly daratumumab with weekly Velcade (1mg/m2) and Dexamethasone. Continue to follow every 6-8 weeks until maintenance schedule. 06/18/2020: Mojgan is here for cycle 3 week 3 (day 21) daratumumab 16 mg/kg weekly, Velcade 0.7 mg/m? now sq once weekly for every 5-week cycle (35 days), and dexamethasone 20 mg weekly. Tolerating well with stable leukopenia and thrombocytopenia. Mild increased symptoms of hand and foot neuropathy, but no limitation in activity. Now following with diabetes management clinic with variable glucosecontrol. We reviewed lower IgA (now M-spike IgG kappa after Daratumumab--previously IgA lambda). Lambda light chain has decreased from 516 to 41.3 to now 18.5 with normalization of K/L ratio. Continue followup myeloma labs in 6 weeks, visit in 8 weeks. 05/21/2020: Mojgan is here for cycle 2 (week 7 overall) daratumumab 16 mg/kg weekly, Velcade 0.7 mg/m? now sq once weekly for every 5-week cycle (35 days), and dexamethasone 20 mg weekly. Tolerating well with stable leukopenia and thrombocytopenia. No significant neuropathy. Noted to have improvement in lambda light chains. No further daratumumab infusion reactions. No infections,stable constipation, pain control improved. No other complaints. Continue monthly f/u with myeloma labs. --Diabetes management--added insulin on dexamethasone days. Hyperglycemia improving. 01/18/2020 (phone followup)--The patient's son was available by phone and her daughter was contactedin a separate phone call as patient presented unaccompanied due to COVID-19 precautions in our clinic during the current epidemic. Bone marrow biopsy results were reviewed as follows from procedure pe rformed 01/26/2020: --Bone marrow biopsy was suboptimal for evaluation. --Increased lambda light chain restricted monoclonal plasma cells (1.9% by flow cytometry, approximately 6% and aspirate count, but 50% by immunohistochemical stains [id number]). Sideroblastic iron present, negative for ring sideroblasts. Peripheral blood smear with mild red blood cell anisocytosis and polychromasia, leukopenia with absolute neutropenia (1000) and thrombocytopenia (54,000) consistent with prior baseline. Note: I discussed the results with Dr. Crook 01/26/2020. Preliminary findings were also discussed with Dr. Cummings 01/27/2020. Morphologic findings, immunohistochemical stains, flow cytometry, and ancillary studies may under represent the extent and severity of disease. The results of FISH myeloma panel with prognostic markers and cytogenetic analysis are pending. --Given the patient's hip pain and presence of lytic lesions, she meets clinicalcriteria for activemyeloma. Given her hip pain and lytic lesions in weightbearing areas she was offered radiation therapy. She had a limited course of hypofractionated palliative therapy to bilateral proximal femurs 02/07/[address] Ahn[address] We discussed that given the COVID-19 epidemic and absence of other significant changes other than bony lesions (normal renal function, normal calcium, stable cytopenias), I would defer active therapy for myeloma for 4 to 6 weeks. Since she has significant history of liver disease I will discuss her case with Dr. Piter Benavidez at [facility] malignant hematology for optimal regimen. The patient is not a transplant candidate given hernonalcoholic steatohepatitis and chronic thrombocytopenia but may be a candidate for either doublettherapy (Revlimid/dexamethasone) or triplet therapy with either Velcade/Revlimid/dexamethasone or daratumumab/Revlimid/dexamethasone. --02/03/2020: Mojgan presented unaccompanied for follow-up of bone marrow aspiration and biopsy performed by Dr. 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 The patient had been noting increased left hip pain over the past several months andplain films of the pelvis and bilateral femurs did show subtle lucencies in the bilateral proximal femurs corresponding to PET/CT findings but no other additional sclerotic lesions identified. No pathologic fractures were seen. --03/05/2020: Mojgan notes improvement of bilateral hip pain since radiation. No other changes in medical history in the past month--no infections, normal renal function, no hypercalcemia. Stable platelet counts without bleeding. Shewas given written literature regarding Dexamethasone, Velcade (thatwould be dose reduced to 0.7mg/m2 twice weekly), weekly Daratumumab and Revlimid, but I will defer decision of which regimen to use until discussion in malignant hematology tumor board. Also referring for infusion port placement prior to initiating therapy. Sign informed consent prior to initiating therapy. --Discussed with Dr. Benavidez who favors Daratumumab combination--will request prior liver biopsy and records from [facility] liver clinic. The patient and her son (by telephone) expressed understanding and will follow- up as directed in 2 weeks for consent and likely start of therapy. --04/02/2020: Mojgan presents after infusion port placement at [facility] by interventional radiology due to platelet count 40,000--she had increased bruising at site post procedure, but this has completely resolved. Her hip painis well controlled since completion of palliative radiation and no newareas of pain. She has previously reviewed information regarding Daratumumab (first dosesplit 8mg/kg IV D1,D2, then if well tolerated 16mg/kg IV weekly), Velcade at about 50% dose (for liver dysfunction) 0.7mg/m2 D1,D4,D8, D11, and [id number] IV weekly--repeat for every 3 week cycles 1st 3 cycles. She will take chemo class and likely start therapy within 2 weeks with toxicity visit in 3 weeks. Today we reviewed chemotherapy counseling for Daratumumab, Velcade, and Dexamethasone. Common toxicities were reviewed to include infusion reaction including rash/dyspnea/wheezing, myelosuppression, fatigue, nausea, vomiting, constipation, diarrhea, mouth sores, and alopecia. Other toxicities may in cludepneumonitis, neurologic, thromboembolism, hyperglycemia, hepatic and renal toxicities. The patient signed informed consent and will follow-up as directed. --04/19/2020: Mojgan is here for cycle 1 week 2 daratumumab 16 mg/kg weekly, Velcade 0.7 mg/m? twice weekly for first 2 weeks of every 3-week cycle, and dexamethasone 20 mg weekly. She did have an infusion reaction with first daratumumab with dyspnea and flushing but this improved after first dose and shehas not had recurrent infusion reactions. We have continued Velcade despite platelet counts in the 40,000 range without bleeding as we know that her baseline platelet counts remain in this range and she has not had any significant change from her baseline. Dexamethasone has caused hyperglycemia with blood sugars up to 400 and we are referring to diabetes management clinic. Otherwise she denies any significant nausea, emesis, fever, chills, night sweats, constipation, diarrhea, rash, mouthsores, or alopecia. She has not had any change of baseline neuropathy. Liver function tests remain stable. She notes that her hip pain is well controlled since prior palliative radiation and she saw radiation oncology earlier this week with no new recommendations. I will send her myeloma labs including serum and urine protein electrophoresis, quantitative immunoglobulins, and serum kappa/lambda light chains in 2 weeks andfollow-up with her in 3 weeks. She may be seen sooner if new issues arise. This is a 67-year-old lady on chronic disability has a history of arthritis, diabetes mellitus, hypertension, COPD, GERD, and fibromyalgia [facility]. She states that she was followed with Dr. Kumari prior to his senior care and was told that she had an elevated protein level as well as thrombocytopenia but never had clinical bleeding. She is 4 para4 without complicationsand was never told that she was thrombocytopenic while . She is had multiple prior surgicalprocedures without any clinical bleeding. She had been recommended for a pain procedure with Dr. Wilson but he declined to do the procedure because her platelet count was less than 100,000. For this reason she received 2 platelet transfusions, with little improvement of her platelet count and her second transfusion resulted in throat tightening due to allergy to platelets . She has never beentreated with steroids and has never been told that she has immune thrombocytopenia. She has mild leukopenia with relative neutropenia, absolute neutrophil count of 400-800 and mild lymphocytosis. Hemoglobin is normal. She has not had any bright red blood per rectum or epistaxis. She has no history ofbleeding within the family however does have a mother and sister diagnosed with colon cancer, a brother diagnosed with lung cancer, and another sister diagnosedwith breast cancer. She had prior pain in the right hand mainly at the first MCP joint with some associated swelling and right foot pain and was evaluated by podiatry. She was told that her blood tests were negative forgout. She had screening with MALLORY, CCP, and rheumatoid factor all of which were negative. She says that she previously saw Dr. Petersen for cirrhosis but did not know of any specific therapy. We reviewed these findings from her liver ultrasound ordered by Dr. Benavidez Summer 2016. Initial consultation with me March 16, 2017. --The patient has been followed by me for some time for diagnosis of smoldering myeloma with a prior bone marrow biopsy May 2017 showing 15% plasma cells but the patient remained asymptomatic without bone pain or other CRAB criteria for therapy. She is also noted to have an ascending aortic aneurysm and has chronicliver disease with cirrhosis secondary to nonalcoholic steatohepatitis. She haschronic thrombocytopenia without bleeding ranging from 50-100,000 this is felt to be due to sequestration from her nonalcoholic steatohepatitis. She was previously on a liver transplant list but was recently notified that she is no longer a candidate for liver transplant. She has had chronic pain from f ibromyalgia but noted increasing bilateral hip and upper thigh pain over the last 6 months. She also is followed for EGD/colonoscopy with last documented procedure 09/21/2018: 1. Normal EGD, 2. Mild sigmoid diverticulosis, 3. Internal hemorrhoids, grade 2, 4. Anal fissure with active bleeding cauterized by bipolar cautery Bone osseous survey in June 2019 showed osteopenia and degenerative changes but no lytic or blastic lesion. Patient had an F-18 PET scan 01/02/2020 which showed multiple areas of involvementof bones with increased SUV activity. She was contacted with these results by phone and I recommended bone marrow aspirate and biopsy for assessment and analysis. Her prior labs were reviewed. Her SPEP does not show anymonoclonal gammopathy. On VAHID there appears to be a trace of monoclonal gammopathy. Free light chain ratio is less than 100. There is no evidence of renal sufficiency. Patient is not anemic. She doeshave some abnormal areas on bone scan. - Summary of Therapies Summary of Therapies: 1. 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 2. She underwent a single dose of palliative radiation therapy to bilateral hips, receiving 800 cGyto right and left hip in 1 fraction in separate vaz (with a single isocenter). The treatments were given with AP/PA vaz [id number] MV photons and MLC blocks. 3. Deferred active therapy for myeloma 2 months given COVID-19 epidemic with increased risk of myelosuppression and viral transmission of contacts. --Follow-up 03/05/2020 I discussed her case with Dr. Piter Benavidez at malignant hematology. --Given her significant hepatic dysfunction, I presented her case at malignant hematology tumor board to discuss optimal therapy. 4. Cycle 1 day 1 04/10/2020: Dose reduced Velcade 0.7 mg/m? twice weekly (day 1,day 4, day 8, day 11)every 3 weeks with dexamethasone 20 mg weekly and daratumumab 16 mg/kg weekly of each 21-day cycle.After first week, Velcade decreased to 0.7mg sq weekly due to thrombocytopenia. --We will need to watch liver function, platelet count, and neuropathy closely on Velcade. 5. Cycle 9 day 1 10/02/2020: Daratumumab 16mg/kg once monthly maintenance therapy until progression. 6. 07/31/2021: Palliative radiation therapy to right supra chondral/soft tissuearea of hip which is PET positive. She received a dose of 3000 cGy in 10 fractions from 07/31/2021 to 08/15/2021 over 15 elapsed days 7. 08/30/2021: Right hip pain improved after radiation. Due to disease progression with persistent cytopenias, changed to repeat loading doses of daratumumab 16 mg/kg weekly for cycles 1 through 3 with Revlimid 5 mg daily for 3 weeks on 1 week off. Held Revlimid second week due to neutropenia with sinus infection, resumed 3 days ago (09/17/2021). Referred for CAR-T therapy evaluation. 8. 12/18/2021: Daratumumab is now 16 mg/kg every 2 weeks with Revlimid 5 mg daily for 2 weeks on 2 weeks off due to neutropenia and thrombocytopenia. Still pending evaluation for CAR-T therapy. 9. 01/22/2022: Patient is not deemed a candidate for stem cell transplant or CAR- T therapy at this time. Discussed changing from current Revlimid to pomalidomide with continued daratumumab 16 mg/kg every 2 weeks. Plan change in therapy in 1 month. 10. 02/19/2022: Continue daratumumab 16 mg/kg IV every 2 weeks and changed to pomalidomide now 3 mg daily days 1 through 21 of each 28-day cycle (lower dose due to baseline liver dysfunction) -- 03/19/2022: Patient was noted to tolerate Pomalyst only 1 week (03/05- 03/13/2022)due to grade 3 rash. This resolved after stopping medication 1 week later. 1 dose level reduction Pomalyst to 2 mg daily days 1 through 21 of each 28-day cycle. Also holding daratumumab daily for platelet count of 41,000 and will resume at full dose with first dose of Pomalyst. -- 04/09/2022: Platelet 40,000 without bleeding. Will continue monthly Daratumumab with change of Pomalyst to 2mg D1-14 each 28 day cycle (off 2 weeks due to low platelets). Rising lambda light chains,unable to tolerate Pomalyst due to cytopenias, stopped mid 07/2022. 11. 07/18/2022: carfilzomib (dose 20mg/m2 day one then 27mg/m2 D8, D15) with cyclophosphamide 300mg IV weekly and weekly dexamethasone. Baseline echocardiogram EF 60-65%. We will follow closely for her chronic cytopenias andliver dysfunction. -- 10/29/2022: Regimen on hold for past 2 weeks due to cytopenias. Today with ANC 400, holding another week and will reduce dose of carfilzomib to 20mg/m2 IV weekly with cyclophosphamide 300-->240mg/m2 IV weekly, continue weekly dexamethasone. -- 11/26/2022: ANC 700, Platelets 40,000. Continue carfilzomib 20mg/m2 IV weekly with cyclophosphamide 300-->240-->180mg/m2 IV weekly, continue weekly dexamethasone. -- Carfilzomib/cyclophosphamide on hold since 12/04/2022 due to cytopenias, pending evaluation by for bispecific antibody therapy. --01/09/2023: Improving cytopenias ANC 900, platelets 68,000. --02/18/2023: Still on hold since 12/04/2022 (if resumed will give carfilzomib 20mg/m2 IV weekly with cyclophosphamide 300-->120mg/m2 IV weekly. 02/24/2023 bone marrow with 4% plasma cells, hypocellular 10%. Continue to hold active therapy for myeloma 03/2023 and 06/2023 visits. --Virtual visit 06/26/2023: Second opinion with Dr. Lindquist at --in person visit scheduled 07/23/2023 for possible by specific antibody therapy versus CAR-Teligibility. ROS Details: All systems reviewed & no additional complaints except as documented Subjective/ROS - Narrative: No change in review of systems from last visit 06/10/2023. Constitutional: No Chills, No Diaphoresis, mild worsening fatigue, No Fever, NoMalaise, No Night Sweats, No Weakness, No Weight Gain, No Weight Loss Gastrointestinal: No Abdominal Pain, No Black Stool, No Bloating, No Bloody Stool, positive for constipation, No Diarrhea, No Dysphagia, No Hematemesis, No Nausea, No Postprandial Pain, No Rectal Bleeding, No Rectal Pain, No Vomiting, Other (chronic gastroesophageal reflux stable) --No jaundice or ascites but patient has longstanding nonalcoholic steatohepatitis with cirrhosis, previously followed by [facility] gastroenterology. Cardiovascular: No Chest Pain, No Edema, No Palpitations, No Syncope Genitourinary: No Discharge, No Dysuria, No Flank Pain, Frequency (chronic andunchanged), Resolved Hematuria, No Incontinence, No Nocturia, No Urgency, No Urinary Retention Musculoskeletal: + left shoulder and neck pain as per HPI (no thoracic cord compression). Recent worsening right hip/thigh pain; positive for intermittent lumbar back pain, No Chest Wall Tenderness, Improvement of prior Joint Pain, Muscle Stiffness, Myalgia (history of fibromyalgia), --unremarkable skeletal survey June 2019. 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 12/2020: F-18 PET/CT stable. 04/2021 F-18 PET/CT stable. Right hip pain mildly improved after palliative radiation. 04/30/2022 repeat Axumin F-18 PET/CT stablefrom 1 year ago. HEENT: + frontal headache and sinus tenderness/congestion--improved. No Blurred Vision, No Discharge, No Ear Pain, No Epistaxis, No Sore Throat --patient was seen in emergency department November 2019 with persistent epistaxis. She was treated with nasal clip and packing and was advised to continue Afrin. No recurrent bleeding. 2 courses of antibiotics in Aug-Sep 2021 for recurrent sinusitis. 11/30/2022: Polyp only on CT (no air-fluid level). 12/26/22: Augmentin 2 week course and hold chemo. Respiratory: No Cough, No Hemoptysis, mild Shortness of Breath (chronic and unchanged due to COPD),No Sputum, No Wheezing--shortness of breath with daratumumab reaction dose 1 04/10/2020 (given a split dose over 2 days). No recurrent reaction since first dose. Neurological: No Dizziness, Stable Numbness/Tingling (reports long-standing bilateral foot numbness--unchanged since starting low-dose Velcade 04/10/2020), NoPre-existing Deficit (no history of stroke or seizure), intermittent headache Hematologic/Lymphatic: No significant bleeding thrombocytopenia from sequestration/myeloma disease,Bruises Easily, No Enlarged Lymph Nodes, Other (reports allergy to prior platelet transfusion) Endocrine: Excessive Sweating (hot flashes, postmenopausal) Flushing, No Intolerance to Cold, Intolerance to Heat Psychiatric: No Depressed Mood, No Insomnia Integumentary: No Jaundice, No Lesions, positive for diffuse rash on Pomalyst 3mg daily as per HPI.1 level dose reduction to 2 mg daily with only mild rash/pruritus. Due to cytopenias Pomalyst reduced to 2 mg twice weekly on Mondays and . Stopped Pomalyst in Jul 2022--no recurrent rash. Allergic/Immunology: Previous pruritus with Pomalyst rash resolved off Pomalyst. PMFSH - History Attestation statement: The following information was validated with the patient. Source: Old Records Reviewed - Medical History Medical History: Medical History (Last Reviewed 07/08/23 @ 13:00 by Fabiola Marinelli MD) Aortic aneurysm COPD (chronic obstructive pulmonary disease) Diabetes Fibromyalgia GERD (gastroesophageal reflux disease) Hypertension Iron deficiency Multiple myeloma Neutropenia Smoldering multiple myeloma (SMM) Smoldering myeloma Temporary low platelet count - Surgical History Surgical History: Surgical History (Last Reviewed 07/08/23 @ 13:01 by Fabiola Marinelli MD) H/O: hysterectomy History of appendectomy History of cholecystectomy - Family History Family History: Family History (Last Reviewed 07/08/23 @ 13:01 by Fabiola Marinelli MD) Other COPD (chronic obstructive pulmonary disease) - Social History Smoking Status: Former smoker Tobacco Type: cigarettes Substance Use Type: None Social History Comments: Lives with son a [facility] Home Medications & Allergies Allergies diclofenac [From Voltaren] Allergy (Verified 07/08/23 10:42) Hives doxycycline [From Vibramycin] Allergy (Verified 07/08/23 10:42) Hives erythromycin base [From E-Mycin] Allergy (Verified 07/08/23 10:42) Hives latex Allergy (Verified 07/08/23 10:42) Unknown Reaction moxifloxacin [From Avelox] Allergy (Verified 07/08/23 10:42) Hives Quinolones Allergy (Verified 07/08/23 10:42) Unknown Reaction tetracycline Allergy (Verified 07/08/23 10:42) Unknown Reaction Home Medications carvedilol 12.5 mg tablet 12.5 mg PO BID 11/20/17 [History Confirmed 07/08/23] duloxetine 60 mg capsule,delayed release 60 mg PO DAILY 11/20/17 [History Confirmed 07/08/23] insulin detemir U-100 100 unit/mL (3 mL) subcutaneous pen 22 units subcut DAILY PRN Hyperglycemia 11/20/17 [History Confirmed 07/08/23] oxycodone 10 mg tablet 10 mg PO BID PRN Pain 11/20/17 [History Confirmed 07/08/23] albuterol sulfate 90 mcg/actuation aerosol inhaler 2 puff inhalation Q6H PRN Shortness Of Breath 11/24/17 [History Confirmed 07/08/23] omeprazole magnesium 20 mg tablet,delayed release (Prilosec OTC) 40 mg PO DAILY 11/24/17 [History Confirmed 07/08/23] metformin 500 mg tablet,extended release 24 hr 500 mg PO BID 03/05/20 [History Confirmed 07/08/23] semaglutide 0.25 mg or 0.5 mg (2 mg/1.5 mL) subcutaneous pen injector (Ozempic) 1 mg subcut QWEEK 09/24/20 [History Confirmed 07/08/23] vitamin B12 0.5 mg-folic acid 1 mg tablet 1 tab PO DAILY 03/28/21 [History Confirmed 07/08/23] lactulose 20 gram/30 mL oral solution 20 g (30 mL) PO BID PRN Constipation #600 mL 04/09/22 [Rx Confirmed 07/08/23] acyclovir 400 mg tablet 400 mg PO BID 90 days #180 tabs 09/24/22 [Rx Confirmed 07/08/23] loratadine 10 mg tablet (Claritin) 10 mg PO DAILY 12/26/22 [History Confirmed 07/08/23] atorvastatin 80 mg tablet 80 mg PO DAILY 01/28/23 [History Confirmed 07/08/23] cyanocobalamin (vitamin B-12) 1,000 mcg sublingual tablet 1,000 mcg sublingual DAILY 01/28/23 [History Confirmed 07/08/23] dexamethasone 4 mg tablet 20 mg PO DIRECTED PRN Systemic Signs And Symptoms 01/28/23 [History Confirmed 07/08/23] fluticasone propionate 50 mcg/actuation nasal spray,suspension 1 spray intranasal DAILY PRN AllergySymptoms 01/28/23 [History Confirmed 07/08/23] insulin aspart U-100 100 unit/mL (3 mL) subcutaneous pen (Novolog FlexPen U-100 Insulin aspart) 25 unit subcut DAILY PRN Hyperglycemia 01/28/23 [History Confirmed 07/08/23] lisinopril 5 mg tablet 5 mg PO DAILY 01/28/23 [History Confirmed 07/08/23] gabapentin 400 mg capsule 400 mg PO TID pain 02/24/23 [History Confirmed 07/08/23] potassium chloride 10 mEq capsule,extended release 10 meq PO DAILY #30 caps 05/18/23 [Rx Confirmed 07/08/23] ondansetron 8 mg disintegrating tablet 8 mg PO TID PRN Nausea #30 tabs 07/08/23 [Rx] Objective - Height/Weight Height/Weight: Height 5 ft 2.99 in Weight 81.647 kg BSA for Today's Weight 1.93 - Vital Signs Vital Signs: 07/08/23 10:43 Temperature 97.7 F Pulse Rate [Left Brachial] 83 Respiratory Rate 16 Blood Pressure [Right Arm] 132/78 02 Sat by Pulse Oximetry 96 Oxygen Delivery Method Room Air - Pain Generalized Pain Intensity: 3 Bilateral Hip Pain Intensity: 5 Left Hip Pain Intensity: 4 Lower Back Pain Intensity: 7 Left Neck Pain Intensity: 4 Back Pain Intensity: 0 Right Thigh Pain Intensity: 3 Bilateral Leg Pain Intensity: 5 Generalized Head Pain Intensity: 4 Bilateral Shoulder Pain Intensity: 6 Left index finger Pain Intensity: 4 - Distress Screening Distress Screen Results: RN Distress Screening Start: 02/07/20 10:17 Freq: Status: Complete Protocol: Document 05/01/20 09:33 DB (Rec: 05/01/20 09:33 DB [id number]) Distress Screening Distress Score: 0 No worry/distress Distress Screening Total 0 RN Distress Screening Start: 07/26/21 12:37 Freq: Status: Active Protocol: Document 02/18/23 10:19 LB (Rec: 02/18/23 10:20 LB [id number]) Distress Screening Distress Score: 8 Physical Concerns Pain,Trouble Sleeping Emotional Concerns How my body looks,Feeling uncertain about the future Comments defer to patient navigator Distress Screening Total 8 Distress score of 4 or more discussed No with patient? Physical Exam Narrative: Patient is alert and oriented x3. HEAD / FACE: Normocephalic. No tenderness to palpation over scalp, no sinus tenderness to palpation. EYES: Pupils are equal and reactive to light. Conjunctivae and lids are benign in appearance. Ocular movement intact. EARS: Hearing grossly intact. NOSE / MOUTH / THROAT: No frontal/maxillary sinus tenderness. No oral thrush oraphthous ulcerations. NECK / THYROID: No cervical adenopathy on exam. Thyroid is symmetrical, withoutthyromegaly, masses or palpable nodules. RESPIRATORY: Normal inspection. Lungs clear to auscultation and percussion. No wheezing, rales, rhonchi or rubs. Normal effort. CARDIOVASCULAR: Regular rate and rhythm. No murmurs, gallops, or rubs. ABDOMEN: Bowel sounds normoactive. Soft, nontender and non-distended. No hepatosplenomegaly. No masses. INTEGUMENTARY: No suspicious lesions or rash. Scattered arm bruising--large bruise proximal left arm. No petechiae noted. MUSCULOSKELETAL: Normal musculature, normal ROM upper and lower extremities, no crepitus. EXTREMITIES: No leg edema. No cyanosis or clubbing. NEUROLOGICAL: Alert and oriented. Cranial nerves intact. No gross motor or sensory deficits, patient ambulates unassisted. PSYCHIATRIC: No anxiety or evidence of depression. - ECOG Performance Status ECOG Score: 1 Results - Labs Labs: Diagram of Most Recent CBC and CMP 07/01/23 09:50 07/01/23 09:50 Labs - Last 7 Days 07/01/23 09:50: IgG 535 L, IgA 38 L, IgM 33, Free [place] LC, Quant 11.1, Free Lambda LC, Quant 306.6H, Free [place]/Lambda Ratio 0.04 L 07/01/23 09:50: Corrected WBC 1.6 L, Uncorrected WBC Count 1.6 L, RBC 3.18 L, Hgb 10.5 L, Hct 31.0 L, MCV 97.5, MCH 33.0, MCHC 33.8, RDW 16.2 H, Plt Count 26 L*, MPV 8.0, Neut % (Auto) 52.0, Lymph % (Auto) 31.1, Hod[place]eman % (Auto) 10.9, Eos % (Auto) 5.8, Baso % (Auto) 0.2, Nucleat RBC Rel Count 0.3, Neut # (Auto) 0.8 L, Lymph # (Auto) 0.5 L, [place] # (Auto) 0.2, Eos # (Auto) 0.1, Baso # (Auto) 0.0, Platelet Estimate Decreased, Plt Morphology Comment Normal, RBC Morphology N/A, Polychromasia Slight, Poikilocytosis Slight, Anisocytosis Slight, Ovalocytes Slight - Impressions No recent imaging for review. Last PET/CT (F-18 bone) was performed 03/09/2023 with no new areas of abnormal radiotracer uptake, diffuse marrow infiltrative process noted. 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 She has high risk cytogenetics and I [facility] Her persistent thrombocytopenia made her ineligible for any clinical trials, and preventedher from receiving local pain procedures given her chronic low back pain. --05/2017 PET/CT images and reports performed for staging to exclude bone involvement with myeloma. 2 indeterminate areas of uptake thought to be degenerative arthritis vs early bone findings of myeloma (right parietooccipitalarea and upper sternum). She has remained asymptomatic [...] showed no lytic lesions and she has stableshoulder, hand, and right SI joint pain (although likely due to fibromyalgia. --Prior osseous survey 07/01/2019 showed osteopenia but no compression fractures or lytic lesions were identified. She had no significant change in myeloma labs(mild increase of urine M-spike, kappa/lambda ratio, and normal serum M- spike and quant immunoglobulins). Urine protein still undetectable, therefore will continue surveillance every 6 months with the same labs--no hypercalcemia, renaldysfunction (or proteinuria), anemia, or new bone symptoms. --------- - --Due to COVID-19 epidemic, her 6-month follow-up [...] proteins with urine M spike 43.1 but totalprotein 34.4, with no reported urine creatinine. --We deferred immunosuppressive chemotherapy for about 1 month due to control ofsymptoms after palliative radiation and concern of potential peak of COVID-19 inlate January early March. --She presented for follow-up 03/05/2020 and we discussed potential therapy options (with son available by phone). --I discussed her case with Dr. Piter Benavidez of malignant hematology, possibly presenting the patient in hematology tumor board at [facility]. --Infusion port placed 03/22/2020 at [facility] due to low platelets. No complications. --03/12/2020: Myeloma labs with no serum M-spike, + urine M spike 22.2mg/24h (14%). Immunofixation IgA lambda specificity. IgA normal 227, Serum kappa 20.6, serum lambda 516.7, Free kappa/lambda ratio0.04. Normal renal function and calcium. Lower ANC 600 and platelets 40,000 --04/10/2020: Started cycle 1 day 1 of weekly dexamethasone 20 mg IV (careful to watch blood sugars with diabetes and known hepatic dysfunction), decreased dose of bortezomib 0.7 mg/m? twice weekly for2 weeks on 1 week off (due to known liver disease and thrombocytopenia), and daratumumab 8mg/kg D1,D2 IV first week,then 16 mg/kg IV weekly and we may consider Revlimid as a 4th medication if needed (deferred for worsening neutropenia and thrombocytopenia--I am reluctant to add this therapy initially). --------- --01/21/2021: One year f/u F18 PET/CT with stable FDG avidity, monoclonal labs (SPEP, Quant Igs, kappa/lambda ratio) all pending. Stable CBC and CMP. Persistent pain left hand 2nd MCP joint--increaseduptake on PET/CT but no lesion on left hand xray from 11/2020. Sending for ortho evaluation. For nowcontinue once monthly Daratumumab. F/u with myeloma labs and exam in 2 months, sooner prn. --05/24/2021: Bone marrow biopsy does not show significant progression although poor prognosis mutation 1q with 13q on FISH. Hypocellular with recent worseningplatelets without bleeding--will recheck B12, folate, and ferritin. [...] sent for plain films of the hip femurand knee showing degenerative changes but no acute [...] progression although she still has slow rise inlambda light chain and platelet count remains in [...] check. She will sign Revlimid consent Thursday. Sheis in agreement with this plan. --09/20/2021: Started daratumumab loading doses weekly with Revlimid on 09/04/2021. Held therapy forANC 900 and platelet 42,000 with sinus infection, now resolved and resumed Revlimid 5mg daily on 09/17. Will continue therapy as prescribed with weekly CBC and hold Revlimid as needed for cytopenias.Evaluation for CAR[facility]T therapy at [facility]. Send myeloma labs and skeletal survey [...] current cycle of Revlimid with change to pomalidomide4 mg daily, follow weekly CBCs after change in therapy and determine optimal dose based on symptomsand cytopenias. Patient is in agreement with this plan. Next follow-up with me in 1 month and we will defer next light chain analysis until 1 month after change in therapy. --02/19/2022: Continued rise in lambda light chains and worsening thrombocytopenia. Today we reviewed informed consent for adding pomalidomide 3 mg daily days 1 through 21 every 28 cycle 2 every otherweek daratumumab. We are dropping Revlimid due to [...] initial cycle was only given 03/05-03/13/2022. Now thatradha has complete resolution of symptoms she may resume pomalidomide at 1 dose level reduction 2 mg daily for days 1 through 21 of each 28-day cycle. We are also holding her daratumumab today due to declining her platelet count 41,000 without bleeding. Repeat kappa/lambda light chain ratio was increased 80 on 5 4but this was her first dose of pomalidomide. Plan anticipate arrival of pomalidomide within the next 1 to 2 weeks and she may resume daratumumab on day1 of therapy. Her next follow-up will be [...] for following myeloma show normal mild increase herfree lambda from 87 to 106, kappa/lambda ratio decreased 0.10-0.09. I will give her 1 more month ofpomalidomide with daratumumab and dexamethasone. The pomalidomide dose will be changed to 2 mg p.o.days 1 through 14, off days 15 through [...] bony lesions. Her kappa/lambda light chain ratio remainsrelatively stable since early March (0.09-0.11) with free lambda light chainsnow relatively stable (106-109). I advised continuing her current regimen and reevaluating with kappa/lambda light chain ratio in 2 months. Continue current dosing and close observation due to platelet count 48,000. No signs or symptomsof infection. Patient is in agreement with this plan. --07/10/2022: Mojgan has no new symptoms, but continued cytopenias with 2 weeks of pomalidomide helddue to recurrent neutropenia and persistent thrombocytopenia (40-50,000). Continued uptrending lambda light chains consistent with progression of myeloma. We did discuss bone marrow biopsy, but this would not policy change clerk, therefore we will give Pomalyst (now decreasedto 2mg Thursday and only) with last dose Daratumumab tomorrow. 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 --09/17/2022: Mojgan is here for cycle 3 of modified CYKLONE regimen. She continues to do ok with only mild fatigue, no other new complaints or s/s of infection. She is ok to treat per discussion with Dr. Marinelli despite low WBC, ANCand platelets. She will follow-up in 3 weeks [...] CBC, CMP, SPEP, VAHID, immunoglobulins, and FLC. Sheis in agreement with this plan and has no questions. --10/29/2022: Stable symptoms on current therapy. Recent viral infection with worsening cytopenias.She has been off weekly therapy for the last 2 weeks due to cytopenias, therefore we will hold 1 further week and if her blood counts meet parameters, she will have dose reduced Carfilzomib 27-->20mg/m2 IV weekly, Cyclophosphamide 300-->240mg/m2 IV weekly, and Dexamethasone 20mg IV/po weekly. She is overdue for echo which was ordered today and we will check results beforeresuming therapy. Next follow-up with me in 6 weeks or sooner as needed. [place]/lambda light chains were reviewed and doshow partial response over the last 3 months. We will continue to follow at least every 2 to 3 months while ontherapy. . No longer a candidate for Blenrep--access removed by FDA for limitedefficacy. Moderate complexity 35 minute followup visit. --11/26/2022: No new symptoms with ongoing response of lambda light chains but persistent cytopenias. In absence of new symptoms of infection or bleeding, we will continue therapy with further dose reduction of cyclophosphamide to 180mg/m2 IV weekly with stable dose Kyprolis 20mg/m2 IV weekly and Dex amethasone. Discussed with Dr. Benavidez at --he would support holding therapyand observation if persistent cytopenias and consider bone marrow biopsy. For now will continue monthly followup and myeloma labs every 1-2 months. She may be a candidate for bispecific antibody in the future if refractory or intolerantof current therapy. Echo stable cardiac function EF [...] persistent cytopenias and sinusitis. She now has [id number] and platelets 37,000 without bleeding. Relatively stable lambda light chains in 40s range. I will hold therapy another 2 weeks, give Augmentin 875mg bid x 2 weeks for persistent sinusitis (no airfluid levels on CT scan), and send referral to Dr. Benavidez for possible CD3/BCMA bispecific antibody therapy (risk of cytokine release syndromewith first dose, requires inpatient observation at a [...] first week due to risk of cytokine releasesyndrome). Nextfollowup with myeloma labs in 2 months, sooner prn. 30 minute moderate complexity followup. --02/18/2023: No active therapy since 12/04/2022--platelets have not improved. Continued uptrending kappa light chains (now 60s range). 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 Worsening right hip/leg pain--repeat PET/CT to determine if bony progression (plain film without obviouslytic lesion right hip/femur). Will set up IR guided bone marrow biopsy to evalwhether persistent cytopenias due to progression vs. therapy related MDS. Hold Kyprolis/Cytoxan and if no progression or MDS on bone marrow biopsy, we will resume lower dose Cyclophosphamide 120mg/m2 IV weekly,Kyprolis 20mg/m2 IV weekly, and Dexamethasone 20mg weekly. [...] cells in addition to a 12% atypical clonalB-cell population on flow cytometry. Given her hypocellularity and low percentage of plasma cells despite increasing lambda light chains onperipheral blood, we will continue to hold her [...] CBC monthly and follow-up with her in 3months with CBC, CMP, quantitative immunoglobulins and kappa/lambda light chains. She may return sooner if new issues arise. High complexity 45-minute visit for review of bone marrow biopsy, imaging,complex medical testing,discussion of plan. --06/10/2023: Stable right hip pain and neuropathy. Off active therapy with cyclophosphamide, Kyprolis, and dexamethasone since 12/2022. Platelet count still 28,000 without active bleeding. Hemoglobin stable at 10 but worsening [id number] with ANC 1000. Rising lambda light chains [...] leukopenia over the last 3 months with nowabsolute neutropenia ANC 800 without any recent infections. Platelet count is now down to 26,000 without active bleeding but marked bruising of the extremities. Hemoglobin is stable at 10.5 with normal renal function and calcium. She has a scheduled in person follow-up with Dr. Supa Lindquist on 07/23/2023 where she will review potential eligibility for these novel therapies that are not available at [facility]. We did discuss potential risk of cytokine release syndrome with by specific antibody therapy that would require a short hospital admission at [facility]. For now we set up afollow-up visit in 3 months with myeloma laboratories, sooner if requested byDr. Lindquist. Patient is in agreement with this plan over this 35-minute moderate complexity visit for coordination of care with [facility]. (2) Bone marrow hypocellularity Hypocellular for age with 10% cellularity. Nutritional work-up as noted above. No vitamine deficiencies noted. Dr. Supa Lindquist may plan to repeat bone marrow biopsy prior to further active therapy for known light chain myeloma. -- Of note patient had prior testing for ceruloplasmin that returned low at 17.5and she was placed on oral copper therapy 2 mg daily since March 2023. I am repeating her serum copper and ceruloplasmin levels with labs today and we will contact her with results. We will increase her oral supplemental copper based on these results due to persistent pancytopenia. (3) Chronic copper deficiency As noted above patient was placed on supplemental copper therapy due to low ceruloplasmin noted 03/11/2023 labs. Repeating these labs today and will titratecopper therapy either orally or IV dependingon levels today. 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 I previously reviewed her outpatient records from [facility] [place], including review of notes, laboratories, and prior bone marrow biopsy 13 years ago. 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 Most recent platelet count is relatively stable at 54,000 but no clinical bleeding. She waspreviously referred to weight reduction clinic and may have slow improvement of steatohepatitis with lifestyle modification. Unless she has active bleeding or planned surgery, we will continue observation during treatment of active myelomato commence next month as noted above. --Agree with recommendation for EGD surveillance for varices (last was 09/2018--negative). This will be deferred during current COVID-19 epidemic. --Prior vitamin B12 and folic acid are normal, for known history of neuropathy. As noted above, I reviewed the negative M spike on serum protein electrophoresiswith immunofixation, but positive for Bence Murray protein on urine protein electrophoresis. Her Quantitative immunoglobulins IgG, IgA, and I gM were all within normal limits, however her serum kappa lambda light chain analysis showeda predominance of lambda light chains. --Previous labs for lupus anticoagulant with DRVVT, hexagonal phase phospholipid, anti-cardiolipin IgG and IgA, and beta 2 glycoprotein IgG and IgA were within normal limits. --Evaluated in ED November 2019 for epistaxis which resolved. Platelet count wasstable at 12/28/2019 follow-up. She continues surveillance with liver clinic at [facility] and I will continue to follow her every 6 months, sooner if newbleeding issues arise. --04/02/2020: We reviewed informed consent for Daratumumab/Velcade/Dexamethasone for active myeloma therapy. I requested prior liver biopsy results and notes from liver clinic at [facility]. Platelet count in 40,000 range but patient has had no active bleeding following infusion port placement 03/22/2020. --08/13/2020: Cycle 6 week 2 toxicity check with improved thrombocytopenia 79,000 range with no bleeding. We will continue current dosing with Velcade 0.7mg/m2 sq (now once weekly), dexamethasone 20 mg weekly, and full dose daratumumab with close follow-up of liver function and platelet counts. --09/24/2020, 01/21/2021, 03/28/2021: Platelets stable 60-70,000 with no new toxicities, started Daratumumab maintenance 10/02/2020. --04/24/2021: Platelets now down to 57,000 with rising lambda light chains. Will eval with repeat bone marrow biopsy due to nonsecretory myeloma. --05/24/2021: Bone marrow hypocellular without significant myeloma progression. Normal B12/folate stores, continue Daratumumab maintenance. --08/16/2021: Persistent thrombocytopenia in 50,000 range, consider change in therapy due to risinglambda light chains. Will check echo and review case withDrErna Benavidez at to discuss next line of therapy. --08/30/2021: Stable platelets--decision to resume weekly Daratumumab 16mg first 3 cycles and change to Revlimid 5mg daily 1-21 each 28 day cycle--titrate as tolerated --09/20/2021: Platelets have declined to 40-50,000 range without mucosal bleeding. Held Revlimid atplatelets 42,000 during sinus infection, resumed after one week off. Will follow weekly CBCs on Daratumumab/Revlimid. --12/18/2021, 01/22/2022: Platelets still in the 50,000 range without mucosal bleeding. Current dosing of daratumumab every 2 weeks and Revlimid 5 mg daily 2weeks on 2 weeks off--plan to change to pomalidomide 3 mg daily next cycle. -- 02/19/2022: Last week platelets were 48,000 and we held Revlimid. This week platelets 58,000 but continuing to hold Revlimid due to change to daratumumab 16mg/kg IV every 2 weeks with pomalidomide 3 mg daily days 1 through 21 every 28-day cycle -- 03/19/2022: Platelets were down to 41,000 and we held daratumumab as well as Pomalyst for rash asnoted above. Resume Pomalyst at 2 mg days 1 through 21 every 28 days. Continue daratumumab 16 mg/kgevery 2 weeks. -- 04/09/2022: Platelets down to 40,000. Okay to give daratumumab 16 mg/kg IV every 2 weeks but Pomalyst dose will be changed to 2 mg days 1 through 14 every 28 days. Follow-up 1 month. -- 05/07/2022: Platelets 48,000. Continue monthly daratumumab 16mg/kg IV with same Pomalyst dose 2mg daily D1-14 every 28 days. Extend next follow-up with kappa/lambda light chain ratio to 2 months. --07/10/2022: Platelets 53,000 with ANC now 600 (held Pomalyst one week for ANC 300). May have one dose Pomalyst today, then hold for change in therapy. Will have platelet transfusion as needed for change in therapy to Kyprolis/Cytoxan/Deamethasone. --08/20/2022: Platelets declined to mid 30,000 range about 4 weeks ago--now up to 56,000 and WBC 1600 and ANC 1000 on Kyprolis/Cytoxan/Deamethasone. No activebleeding. Continue current dosing and f/uin 3 weeks. --09/17/2022: Platelets at 43,000 without recent transfusion. WBC and ANC at 1.4and 600 respectively. Will continue with treatment. --10/15/2022: Platelets at 49,000. No s/s of bleeding. Ok for treatment. --10/29/2022: Platelets at 31,000 with ANC 400. Dose reductions recommended asnoted above. No active bleeding. Follow-up 6 weeks. --11/26/2022: Platelets at 40,000 with ANC 700. Dose reduction cyclophosphamideonly as noted above. No active bleeding. Follow-up 4 weeks. --No chemo since 12/04/2022. Platelets 37,000-->68,000. --02/18/2023: Platelets still 35,000. Sending for IR guided bone marrow biopsy. Will continue to hold chemotherapy until bone marrow biopsy review in 3 week. We may resume with cytoxan dose reduction if no progression or MDS. She may be a future candidate for bispecific antibodies for multiple myeloma. Still has nobleeding. -- 03/11/2023: Platelets have now declined to 28,000. She had increased bruisingaround the site of her bone marrow biopsy [...] Dr. Supa Lindquist for further therapy at [facility] as noted above. (5) Cancer-related pain Improved symptoms after palliative radiation to bilateral hips--one dose 02/07/2020, radiation to right hip . Will continue to follow on myelomachemotherapy. Extensive, but stable bone involvement on F-18 PET/CT 12/2020 and 04/2021. Recent increased left neck and shoulder pain. Increased oxyco done dosing to three times daily, no unusual right hip pain is noted above--followed by palliative medicine. -Completed right hip radiation with persistent but improved pain--no new pain issues with follow-upvisit with radiation in early March 2022, follow-up [...] therapy. No change in symptoms at 07/08/2023 followup. 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 [facility]ref[facility] to attempt weight reduction through diet and exercise that may prevent further fatty infiltration that may further impairher liver function. [facility] hepatology discussed liver transplant but sheis likely no longer a candidate for this given active myeloma. We chose least hepatotoxic regimen for treatment of her active myeloma with 50% dose reduction of Velcade. Liver function remained stable since start of therapy 04/10/2020. --Requested prior liver biopsy and [facility] liver clinic records. Dose reduction 20% Kyprolis due to KAPADIA with cirrhosis (normal bilirubin and transaminases). Stable LFTs on Kyprolis/Cytoxan/Dexamethasone therapy (on hold since 12/04/2022). (7) Encounter for coordination of complex care Initial Daratumumab maintenance tolerated well without significant toxicities. Bone marrow biopsy did not reveal indication for change in therapy. --09/04/2021: Repeat loading with weekly Daratumumab 16mg first 3 cycles and changed to Revlimid 5mgdaily 1-21 each 28 day cycle--02/19/2022 reviewed informed consent to change to pomalidomide next cycle. --03/19/2022. Pomalyst was stopped after 1 week of therapy on 03/13/2022. Daratumumab held 03/19/2022 due to platelet count 41,000. We resumed both medications on arrival of dose reduce Pomalyst 2 mg days 1 through 21 every 28- day cycle. -- 04/09/2022: Daratumumab is monthly maintenance. Mid July: last dose Pomalyst 2mg today with ANC 600. -- 07/30/2022: Changed chemo to Kyprolis/Cytoxan, normal baseline Echo. -- 10/29/2022: Dose reductions for cytopenias Carfilzomib 27-->20mg/m2 IV weekly, Cyclophosphamide 300--240mg/m2 IV weekly, and Dexamethasone 20mg IV/po weekly. Will continue every 3 week therapy until progression or intolerable toxicity. --11/26/2022: Platelets at 31,000 with ANC 400. Dose reductions Carfilzomib 27-->20mg/m2 IV weekly, Cyclophosphamide 300--240-->180mg/m2 IV weekly, and Dexamethasone 20mg IV/po weekly. Therapy on hold since 12/04/2022 for cytopenias and sinusitis. Continue to hold 02/18/2023 pending bone marrow biopsy. -- January 2023: 1 dose IVIG 0.4 mg/kg due to recurrent sinusitis. No improvementof platelet count. -- 03/11/2023: Bone marrow biopsy with 10% cellularity, 4% plasma cells. Decision to continue to hold carfilzomib/cyclophosphamide/dexamethasone and work-up for nutritional etiologies. --06/10/2023: Continue observation off chemotherapy x 6 months. Second opinion with Dr. Lindquist [facility] (virtual consult 06/26/2023; In person consult 07/23/2023 for possible by specific antibody or CAR-T therapy.). - Chemo Plan Chemo Plan (Dose, Rate, Freq): Active chemotherapy on hold since 12/05/2022 due to persistent leukopenia and thrombocytopenia. Goal of Treatment: Palliative - Time with Patient Time Spent with Patient (Follow Up Visit): 35 minutes - Moderate complexity--review symptoms and labs, continue to hold therapy, second opinion virtual visit [facility] Coordination of Care & Counseling Time: Greater than 50% of time spent with patient was for coordination of care (as documented) and [id number] counseling of patient and/or family. Dictated By: Fabiola Marinelli MD DD/ [id number] Signed By: <Electronically signed by MD Fabiola Marinelli> 07/08/23 [address] [facility] Work Phone: [phone]) 315-341108-30-2023 Evaluation note* Encounter Date Diagnosis Assessment Notes Treatment Notes Treatment Clinical Notes Jun, Cancer associated pain (ICD-10 - G89.3) OARRS reviewed, consistent with Rx [employer] Other 08-09-2023 Progress note Author Fabiola Marinelli [facility] June 10, 2023 7:36pmNote Date/TimeAugust 2022 1:37pm[facility] [place] [id number] Hem/Onc Follow Up Note - OP Signed Patient: Mojgan Pérez MR#: [id number] : 1955 Acct:[id number] Age/Sex: 67 / F Type: REG RCR Copies to: MD Yinka Downey MD Katherine M McGraw, VISUAL MERCHANDISER~ Subjective Date/Time of Service: Date of Service: 06/10/2023 Time of Service: 13:35 Chief Complaint: Patient is here today for a 3 month follow up and go over labs HPI: 06/10/2023: Mojgan is unaccompanied today--scheduled to see Dr. Lindquist tomorrow but she noted a family emergency and feels she cannot travel there tomorrow. I contacted him and he agrees to changeto a virtual visit. Increased bruising but no epistaxis, mucosal bleeding, or bright red blood per rectum. No worsening of bone pain or baseline neuropathy. Platelets remain low30,000 to high 20,000 range. WBC 1700 with ANC about 1000. Uptrending lambda light chain now to 241. I asked Dr. Lindquist to evaluate for potential biphenotypic antibody therapy or CAR-T option for myeloma. I will continue to hold therapy for another month (last Kyprolis/Cytoxan given 6 months ago) and will f/u around 4-6 weeks to review recommendations from Dr. Lindquist and f/u myeloma labs. Moderate complexity 30minute f/u. 03/11/2023: Mojgan is here for follow-up of bone marrow aspiration and biopsy performed in interventional radiology on 02/24/2023 as well as follow-up F-18 PET/CT. She has continued right hip pain andsaw nurse practitioner Pearl Holder the day after her bone marrow biopsy. She started oxycodone 10 mg 4 times daily as needed with continued gabapentin 400 mg on an as-needed basis. She previously received radiation to the right hip in July-August 2021 over 15 elapsed days--I am reluctant to repeat radiation to this area unless pain is refractory to oral medications. The PET/CT from 03/09/2023 showed relatively patchy abnormal radiotracer accumulation in the skeletal structures that similarto prior exam consistent with her multiple myeloma but no new areasof radiotracer accumulation. Theright hip uptake looks relatively stable from prior PET/CT in March 2022. The bone marrow aspirate and biopsy showed low cellularity for age about 10% with 4% clonal plasma cells by immuno chemistry and 0.7% of lambda mononuclear plasma cells on flow cytometry with a population of atypical CD10 positive B cells. She had presence of stainable iron stores 1+and no evidence of amyloid deposition. Her peripheral blood platelet count is now 28,000 and she does not have any active bleeding. She did have extensive bruising after her bone marrow biopsy. She has not had any recent infections and received 1 treatment with IVIG in early January. -- At this time I recommend holding active therapy for her myeloma given her cytopenias and plasma cells less than 10%. We will continue to follow CBC every2 weeks for her platelet count this month and if relatively stable continue CBC monthly. I will also send vitamin B12, folate, copper, ceruloplasmin, and iron panel to see if we can optimize her from a nutritional standpoint to improve herthrombocytopenia. This may also be due to her hepatic steatosis. Her next follow-up with me with myelomalabs to include quantitative immunoglobulins and kappa/lambda light chain analysis will be in 3 months or sooner as needed. Thisis a high complexity visit over 45 minutes for review of bone marrow biopsy and imaging results, discussion of continuing to hold further therapy (Kyprolis/Cytoxan last given December 2022), and plan nutritional labs with follow-up phone call with results. 02/18/2023: One month followup--still off active therapy with Kyprolis/Cytoxan past 2 1/2 months dueto persistent thrombocytopenia and initiation of IVIG for admission for urosepsis 01/28/2023. Despite off therapy, she has persistent low platelets 35,000 without bleeding. Uptrending kappa light chain to 60s. Notes recurrent right hip pain--I recommended repeating F-18 PET/CT to determine if bony progression with right hip/pelvis/femur film. Will also set up IR guided bone marrow biopsy--review results in 3 weeks and decide whether to resume activetherapy. If lytic lesion at hip/acetabulum/femur concerning for potential fracture, will refer to orthopedics for possible prophylactic kenton. Still no contact from Dr. Benvaidez for bispecific antibody therapy. Moderate complexity 35 minute followup. 01/09/2023: Here for followup after consult with Dr. Benavidez last week. Progress note is still pending, but we communicated by secure text regarding her evaluation. Myeloma labs are stable with mild increase of serum kappa from 40s to 60s range. Platelet count now to 68 and ANC 900 since holding Kyprol is/Cytoxan since 12/05/2022 for cytopenias. We decided to hold 2 more weeksthen resume Kyprolis at same dose 20mg/m2 and further decrease Cytoxan to 40% dose overall when we resume dose. Next line of therapy at progression may be CD3/BCMA myeloma bispecific antibody Teclistamab (needs to be hospitalized firstweek due to risk of cytokine release syndrome). Plan to resume likely in 2 weeks if adequate blood counts and no infection. F/u with myeloma labs (CBC, CMP, quant immunoglobulins and kappa/lambda light chains) in 2 months, sooner prn. Moderate complexity 30 minute followup. 12/26/2022: Mojgan continues to have nasal drainage sinus congestion and pain despite completing 2 weeks of amoxicillin and no air-fluid level on CT Sinuses 11/30/2022. We gave last dose of Kyprolis/Cytoxan (60% dose) on 12/05/2022. Peripheral neuropathy is stable, no diarrhea, no skin rashes. We reviewed her labs with ANC 900, platelets 37,000 and she notes easy bruising but no nasal/oral mucosal, GI or bleeding. I will again hold Kyprolis/Cytoxan another 2 weeks and give 2 weeks of Augmentin 875/125mg bid for her persistent sinus infection and Diflucan 100mg daily for vaginal candidiasis. Will formallyrefer back to Dr. Benavidez to see if she is a candidate for the CD3/BCMA myeloma bispecificantibody therapy which she would need to receive at [facility]. F/u with me in 2 weeks--if persistent cytopenias we may need torepeat her bone marrow biopsy (if now performed by Dr. Benavidez). She agrees with this plan over this 35 min moderate complexity followup visit. 11/26/2022: Mojgan is here for monthly followup on modified CYKLONE therapy. Notes increased frontal headaches over the past with with nasal congestion--sending for sinus CT and 2 week course of Augmentin bid. Platelet count recently dropped as low as 25-31,000 without bleeding (currently 40,000), WBC to 1300 with ANC 700. No current fever, chills or symptoms of infection. Prior dose reductions of Kyprolis to 20mg/m2 weekly with cyclophosphamide 240mg/m2 weekly). Echo with normal EF 55-60%. We will further dose reduce cyclophosphamide to 180mg/m2 (overall 40% dose reduction) and maintain Kyprolis at 20mg/m2. She has ongoing decline of lambda light chains over the past 6 months indicating response. I discussed her case with Dr. Piter Benavidez who notedtherapy could be held if worsening cytopenias. For now continue monthly followup with myeloma labs (quant immunoglobulins and kappa/lambda light chains). Bleeding precautions and f/u sooner if new symptoms arise. Moderate complexity 35-minute visit for review of complex labs and adjustment of chemotherapy regimen. 10/29/2022: I asked Mojgan to return today due to cytopenias on labs and discussion of either dosereduction or changing therapy. She notes that over the last 2 weeks she has had cough, body aches, worsening fatigue, but no fever. She was diagnosed with a non-COVID viral syndrome. Her symptoms arestarting to get better but she has more significant cytopenias with absolute neutrophil count of only 400 with total white blood cell count 1000. In addition her platelet count is 31,000 she has not had any active bleeding issues. We were unable to contact her to tell her not to come in for chemo but I decided to see her today since she was last evaluated by nurse practitioner last 2 visits. Hermyeloma labs show relatively stable lambda light chains which appear to have responded since start oftherapy in July. She is due for her echocardiogram and due to her cytopenias we will hold therapy today and plan 1 level dose reductions of both cyclophosphamide (from 300 to 240 mg/m2 IV weekly)with Kyprolis dose reduction (from 27 to 20mg/m2 IV weekly). She has been off therapy past 2 weeks due to cytopenias. If she is unable to resume therapy we may consider an alternate therapy such as Blenrep. She is otherwise in agreement with current plan of care. Moderate complexity 35-minute visitfor review of complex labs and adjustment of chemotherapy regimen. 10/15/2022: Mojgan is here for follow-up for her multiple myeloma on modified CYKLONE therapy. Shecontinues to do well and remains active at home. She deniesshortness of breath, chest pain, nausea,vomiting, diarrhea or constipation. Sheis eating and drinking well. No fevers, chills, sweats, bleed ing or rash. She does note mild tongue soreness and on exam it appears she may be developing thrush, very mild currently on the tongue only. We will prescribe nystatin for this. Labs are reviewed andstable overall, ok for treatment. She will follow-upin 4wks with Dr. Marinelli with repeat labs and treatment. 09/17/2022: Mojgan is here for follow-up on modified CYKLONE therapy for her multiple myeloma. Shecontinues with fatigue, but otherwise no new complaints. She has no s/s of infection, no shortness of breath, chest pain, n/v/d or other concerns. In review of her labs, her WBC are 1.4, ANC 0.6 and platelets 43,000. Per Dr. Marinelli, given no s/s of infection and she otherwise feels well, she is okfor treatment. We discussed signs to report related to infection such as fever, chills, etc. and she will call with any concerns. We will follow-up in 3wks withrepeat labs. 08/20/2022: Mojgan is here for 3-week follow-up on modified CYKLONE therapy (cyclophosphamide 300 mg/m2 IV weekly, dexamethasone 20 mg IV weekly, and carfilzomib now 56 mg/m2 IV weekly). Baseline echocardiogram 07/18/2022 showed normalejection fraction 60 to 65%. I discussed her case with Dr. Mason advised that despite her significant thrombocytopenia she should be treated with full dose cyclophosphamide/carfilzomib and may support with transfusions as needed. The patient's lowest platelet counts were in the 30,000's after her first week of therapy but now is up to 56,000. She has not hadany clinical bleeding. Nancy has persistent leukopenia 1900 today with absolute neutrophil count now 1000. At this point as long as she does not have any significant symptoms of therapy or signs ofinfection or active bleeding we will continue her current dosing. She otherwise notes mild fatigue but no other toxicities. Prior skin rash on Pomalyst has resolved. She will follow-up in 3 weeks fortoxicity checkwith nurse practitioner and we will order her restaging myeloma labs with serum protein electrophoresis with immunofixation, quantitative immunoglobulins, and kappa/lambda light chain ratio. She may return sooner if new issues arise. Moderate complexity follow-up over 30 minutes to address cytopenias on CYKLONE therapy. 07/10/2022: Mojgan is here for 2-month follow-up of myeloma labs. No changes in medical history and platelet count remains in the 40-50,000 range without bleeding. We held her Pomalyst (as well as daratumumab) this week due to absolute neutrophil count of 300 without any recent infections. She previously held it for 1 week due to neutropenia, took 1 tablet, then had to hold a second week due to neutropenia. We reviewed her kappa/lambda light chain ratio which continues to progress in the wrong direction (total lambda light chains now increased from 109 to 125.7 with ratio from 0.11 to 0.08). Her progressive cytopenias and worsening light chains likely reflects progression of myeloma. We could repeat her bone marrow biopsy but her most recent bone marrow biopsy on10/09/2021 showed hypercellular bone marrow (30%) with slight megakaryocytic and granulocytic hyperplasia and only 1.5% plasma cells (Lambda restricted by flow cytometry). This likely would not change her current management and I discussedher case with Dr. Benavidez of malignant hematology who recommended considering carfilzomib (Kyprolis) with cyclophosphamide. I will contact patient to coordinate baseline echocardiogram forKyprolis and likely she will require dosereductions for her underlying hepatic dysfunction and chronic cytopenias. AfterI reviewed dosing with Dr. Benavidez and pharmacy and review her echocardiogram, jayne coordinate follow-up for change in therapy and chemotherapy consent. For now we will continue daratumumab with altered dose of Pomalyst to 2 mg twice weekly ( and Mondays) until change in therapy. I will not likely send dose reduction of Pomalyst due to planned change in therapy. Moderate complexity 35 minutes for coordination of care. 05/07/2022: Improved rash on 2 mg of Pomalyst, now mild pruritus. Platelet count is 48,000 without bleeding issues. Continues weekly prednisone. Daratumumab isnow monthly since early April. Repeat kappa/lambda light chain ratio slightly higher (106 to 109) But the upward trend is starting to flatten out. F-18 Axumin PET/CT shows no new lesions, relatively stable from 1 year ago. For now given her stable symptoms and pronounced cytopenias, we will continue her current dosing daratumumab/Pomalyst/dexamethasone. Next follow-up with me in 2 months. She will return sooner for issues arise. Moderate complexity visit over 35 minutes. 04/09/2022: Mojgan continues every 2-week durvalumab with Pomalyst now 2 mg daily (dose reduced due to diffuse rash). She is now day 14 of the cycle and isnoted to have platelet count of 40,000 (no associated mucosal bleeding, bright red blood per rectum, or hematuria). No recurrent rash on this dose. She continues her weekly prednisone. I recommended changing her schedule of Pomalyst to 2 mg daily for days 1 through 14, off days 15 through 28 cycle and continuing daratumumab. Her most recent immunoglobulins have shown a steady trend upward for lambda light chain and decrease of kappa/lambda light chain ratio, however since she is now stabilizing her dosing of daratumumab/Pomalyst/dexamethasone I recommend continuing her current dosing for1 more cycle with repeat kappa/lambda light chain ratio in another month. In addition I will set her up for F-18 Axumin PET/CT to compare to PET/CT from 1 year ago (her skeletal survey showed no lesions 6 months ago). She denies any current bone pain.She will proceed with daratumumab dose as previously orderedtoday. 03/19/2022: Mojgan is here for follow-up after adverse cutaneous reaction to her first cycle of Pomalyst. She noted that after starting her first dose of Pomalyst 3 mg daily on 03/05/2022 that about 1 week later on 03/13/2022 she had a diffuse rash all over that was pruritic with increased erythema. She did not have nausea, vomiting, constipation, diarrhea, dyspnea, or any other adverse reactions. She did have a decline of platelet count to 41,000 this week which may be due to her Pomalyst. She called the pharmacy and was instructed to discontinue Pomalyst on 03/13/2022. Her rash has mostly resolved with no furtherpruritus but she still has a few macular lesions over the legs. She has been using Benadryl and topical cortisone cream with improvement of the rash. Otherwise her laboratories are stable. She does have an increased kappa/lambda light chain ratio from 03/05/2022 but this was her first day of therapy. I recommended resuming Pomalyst at next dose level 2 mg daily as soon as new medic ation arrives for 3 weeks on 1 week off. If she has recurrent rash she will again stop and we will consider further dose adjustment. Due to her thrombocytopenia we will hold her daratumumab today andconsume with first day of Pomalyst next week. She may follow-up in about 3 to 4 weeks, possibly with virologist covering at that time. Patient expressed understanding. 02/19/2022: Mojgan is here for follow-up--no new symptoms but her platelet countdropped to 48,000 last week and we are again holding her Revlimid. She has not had any bleeding or infection recently, but she has had uptrending lambda light chains and we discussed changing her therapy from lenalidomide to pomalidomide and continuing her daratumumab which is currently every other week. Her only other concern is constipation which is likely related to her pain medications. ANC was 800 today. --Today we reviewed chemotherapy counseling for lenalidomide in combination withdaratumumab/dexamethasone (stopping Revlimid). Common toxicities were reviewed to include allergic reactions, myelosuppression, thrombosis, fatigue, nausea, vomiting, constipation, diarrhea, mouth sores, and risk of secondary malignancies. Other toxicities may include pneumonitis, neurologic, hepatic and renal toxicities. The patient signed informed consent and will follow-up as directed. Planning a trip to [place] on March 06, therefore we will hold Revlimid until arrival of her pomalidomide, then have oral chemotherapy visit. We are starting pomalidomide at 3 mg daily days 1 through 21 every 28 days due to baseline liver dysfunction. Follow-up cycle 1 week 2. We will recheck her baseline myeloma labs on start day of pomalidomide with daratumumab. 01/22/2022: Mojgan has no new complaints. She was seen by Dr. Benavidez at for evaluation for transplant and CAR-T options but given her profound thrombocytopenia, neither of these options are felt tuyet optimal for her. She has had gradual worsening of her lambda light chains without any change of r enalfunction or hypercalcemia. Her chronic thrombocytopenia has remained in the 40-50,000 range which is lower than her prior baseline. I reviewed her options with Dr. Benavidez and it is difficult to assess best options due to her chronic thrombocytopenia but standard of care at this point would be tocontinue her daratumumab and transition from the lenalidomide to pomalidomide. We will follow closely with weekly CBCs to determine if thrombocytopenia worsens on thisregimen. I will defer changing her regimen for 1 month since she is starting a new cycle of lenalidomide and has had slow progression of her lambda light chains. She will return in 1 month and will discuss pomalidomide and signed inf ormed consent. Patient is in agreement with this plan. 12/18/2021: Mojgan is here for 3-month follow-up. She has not had any significant changes in medical history other than testing positive for coronavirus infection in early November 2021. She has not been immunized for coronavirus. She notes persistent fatigue but no bone pain. No other recent infections or bleeding episodes. She recently changed from weekly to now every 2 weeks daratumumab 16 mg/kg and remains on low-dose lenalidomide 5 mg daily for 2 weekson 1 week off due to prior thrombocytopenia worsening. October 2021 skeletal survey showed no osteolytic lesions suggestive of myeloma. Initially she had improvement of her platelets to 70-100,000 but today platelets are down to 54,000. She also had some improvement of leukopenia but this is again down to 2800 with ANC 1300 today. Urinerandom M spike is not observed, but she has hadprogressive increase of her lambda light chains from30 in December 2020 to 60.2 inDecember 2021. [place] lambda ratio has also started to decline to 0.21 in October 2021. For now I'm continuing her daratumumab with Revlimid at current dosing, but I contacted Dr. Benavidez at [facility] for CAR-T cell eligibility. If he has recommendations to change her therapy, I will let her know. Otherwise I will have her follow-up with me in 1 month (she willhave repeat myeloma labs 1 week prior to visit). 09/20/2021: After telephone consultation with Dr. Benavidez at , we resumed repeat loading doses of weekly daratumumab 16mg/kg and changed to low dose lenalidomide 5mg daily. She has had 2 courses of antibiotics for sinus infection over the past month and was noted to have neutropenia with ANC 900, platelets 44,000 week 2 of Revlimid, therefore this was held for one week and resumed Thursday after ANC returned to 1000. Platelet counts have persisted at 40-50,000 range without active bleeding. Otherwise tolerating therapy well. Still improved hip pain and ambulation after recent course of palliative radiation therapy. For now we will continue Daratumumab with Revlimid and Dexamethasone as ordered with weekly CBC. Gradually increasing lambda light chains--pending evaluation at for CAR-T celltherapy eligibility (has not yet been contacted for appointment). 4 week f/u with me with CBC, CMP,and myeloma labs (follow quant immunoglobulins and [place]/Lambda light chain ratio with skeletal survey in 2 weeks so results available for appointment). 08/30/2021: Mojgan is here for 2-week follow-up for completion of her palliative radiation therapywith significant improvement of pain in her right hip and pelvis. We sent her for echocardiogram performed 08/23/2021 at [facility] [place] as baseline for possible Kyprolis therapy. This returned with ejection fraction 60% which is normal with grade 1 left ventricular diastolic dysfunction and 1+ tricuspid valve regurgitation and traceto 1+ aortic valve regurgitation. Otherwise unremarkable. I discussed her casewith Dr. Benavidez of malignant hematology at [facility]. He advised against Kyprolis therapy given her underlying liver dysfunction and recommended repeating loading doses of daratumumab weekly as well as low-dose lenalidomide which we will start at5 mg daily since she has chronic thrombocytopenia. We will send for CAR-T therapy as a possible therapeutic option. The patient agreed with changing daratumumab to weekly and we will have her sign consent next week for change to low-dose lenalidomide therapy. Next follow-up with me will be in about 2 weeks for week 2 lenalidomide with daratumumab. 08/16/2021: One month followup, she recently completed palliative radiation therapy to right hip and pelvis. Platelet count still in 50,000 range with increased bruising but no bleeding. Still has some pain in right hip but slowlyimproving after radiation therapy. Slowly worsening lambda light chain --she is scheduled for ECHO next week. We discussed possibly changing therapy from Daratumumab, Velcade, Dexamethasone to Kyprolis, low dose lenalidomide, dexamethasone if adequate cardiac function. I will discuss this with Dr. Benavidez for dosing and determine if CAR-T therapy is another possible option (although we may be limited due to chronic thrombocytopenia and liver disease). Followup 2-3 weeks to review results and possible consent for change in therapy. 07/17/2021: 2-month follow-up on multiple myeloma. She reports that Thursday she developed severe painin the right leg that started proximal to the knee creating it to the hip. She had increased pain with weightbearing on the right and has been using a walker at home secondary to this. She did not feel a pop or shift in ambulation, but has been using her Percocet for pain control at home. In reviewing her laboratories platelet count remains in the 52,000 range and she is otherwisPe tolerating daratumumab well. I recommended sending for right hip, femur, and knee plain film imaging that did not show any fracture. She does have a gradually rising lambda light chain but no other significant changes in her labs. I reviewed her case with Dr. Cheng of orthopedic surgery who also reviewed her prior PET/CT showing uptake in this area. We will obtain a right hip MRI, keep her completely nonweightbearing on the right leg with walker for transfers and she has an urgent orthopedic follow-up following her MRI. I will follow-up with her in 1 month to review management and we will determine if she requires prophylactic kenton for stability of the hip based on her MRI. 05/24/2021: Here to followup 05/03/2021 bone marrow biopsy--noted to have decreased cellularity 25%, flow cytometry with 0.2% plasma cells and a 1.5% monoclonal B- cell population. FISH showed 13q and 1qabnormalities but normal cytogenetics. No myelodysplasia seen. I reassured her that recent thrombocytopenia is more likely related to splenic sequestration from liver disease and not worsening myeloma. For now continue current regimen. Will alsorecheck B12, folate, and iron profile with next labs--followup in 2 months with myeloma labs, sooner prn. 04/24/2021: 1 month followup to review PET/CT. Over the past 2 days, she notes episodes of sharp left sided neck pain over sternocleidomastoid muscle and mastoid area. No radiculopathy down left upperextremity. No new side effects of Daratumumab. F18 PET/CT shows largely unchanged diffuse uptake through multiple bony sites in axial and articular skeleton. Lambda light chains risingover past 2 month and decline of platelet count to 57,000 without bleeding. MRIof thoracic spine did not show significant thoracic canal stenosis. Due to worsening neck pain with extensive uptake on F18 PET/CT--we will send for cervical MRI. Palliative medicine has increased Percocet to tid. We will repeat bone marrow biopsy due to rising lambda light chain and falling platelet count to determine if progression of myeloma noted. This will be scheduled in the next 1-2 weeks. 03/28/2021: 2 month followup for multiple myeloma. More recently notes neck andleft shoulder pain. Fatigue and constipation stable. Labs show stable anemia and thrombocytopenia. Serum M-spike now asymmetric gamma (no quantifiable spike). Slowly improving IgG to near normal. [place]/lambda light chain ratio normal with mildly increased lambda light chains. MRI of thoracic spine for evaluation of increasing left shoulder pain. For now we will continue current dosing of Daratumumab and recheck F18 PET/CT for response in late April 2021. 01/21/2021: Mojgan is accompanied by her daughter for 2 month followup--now Daratumumab maintenance. She notes persistent fatigue and recently added as needed laxatives to stool softener for management of constipation. Persistent left hand pain--correlates to an area of bone uptake on PET/CT. Overall F18 PET/CT appears stable with no new areas if FDG avidity (still extensive bone FDGuptake). We reviewed prior plain xrays of left hand from November--she agrees toevaluation by orthopedic surgery (determine if biopsy or steroid injections). M-spike and kappa/lambda light chains pending. CBC (platelets 60-70,000); CMP stable. Will followup in 2 months with exam and labs. 11/26/2020: Mojgan is accompanied by her daughter for 2 month followup--now Daratumumab maintenance. Stable leukopenia/low platelet 70,000. Notes 3 days of hematuria and mild dysuria. Sending UA and possible culture. Otherwise no new bone pain. Blood sugars stable. M-spike and kappa/lambda light chain ratiostable. Next f/u 2 months after one year f/u PET/CT to determine response to therapy. 09/24/2020: Mojgan presents (accompanied by her daughter) for cycle 8, week 2 followup [id number] mg/kg IV weekly, Dexamethasone 20mg weekly, and Velcade 0.7 mg/m? now sq once weekly for every 3-week cycle (21 days). She notes neuropathy symptoms are stable. Tolerating therapy well without fatigue. No bleeding and thrombocytopenia stable in 60-70,0000 range. On 10/02 she will be due for maintenance therapy with Daratumumab alone once per month. I will f/u with her in 2 months with myeloma labs, sooner as needed. Velcade and Dexamethasone will be stopped after 8 cycles. 08/13/2020: Mojgan is here for cycle 6, week 2 (day 14) daratumumab 16 mg/kg weekly, Velcade 0.7 mg/m? now sq once weekly for every 3-week cycle (21 days), and dexamethasone 20 mg weekly. No new symptoms--improving thrombocytopenia to 79,000 and improved leukopenia. 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 Still has improvement of M-spike, IgA normal and decreased lambda light chain and K/L ratio. We discussed that week 25 in Oct she will change to monthly daratumumab with weekly Velcade (1mg/m2) and Dexamethasone. Continue to follow every 6-8 weeks until maintenance schedule. 06/18/2020: Mojgan is here for cycle 3 week 3 (day 21) daratumumab 16 mg/kg weekly, Velcade 0.7 mg/m? now sq once weekly for every 5-week cycle (35 days), and dexamethasone 20 mg weekly. Tolerating well with stable leukopenia and thrombocytopenia. Mild increased symptoms of hand and foot neuropathy, but no limitation in activity. Now following with diabetes management clinic with variable glucosecontrol. We reviewed lower IgA (now M-spike IgG kappa after Daratumumab--previously IgA lambda). Lambda light chain has decreased from 516 to 41.3 to now 18.5 with normalization of K/L ratio. Continue followup myeloma labs in 6 weeks, visit in 8 weeks. 05/21/2020: Mojgan is here for cycle 2 (week 7 overall) daratumumab 16 mg/kg weekly, Velcade 0.7 mg/m? now sq once weekly for every 5-week cycle (35 days), and dexamethasone 20 mg weekly. Tolerating well with stable leukopenia and thrombocytopenia. No significant neuropathy. Noted to have improvement in lambda light chains. No further daratumumab infusion reactions. No infections,stable constipation, pain control improved. No other complaints. Continue monthly f/u with myeloma labs. --Diabetes management--added insulin on dexamethasone days. Hyperglycemia improving. -- -------- 01/18/2020 (phone followup)--The patient's son was available by phone and her daughter was contactedin a separate phone call as patient presented unaccompanied due to COVID-19 precautions in our clinic during the current epidemic. Bone marrow biopsy results were reviewed as follows from procedure pe rformed 01/26/2020: --Bone marrow biopsy was suboptimal for evaluation. --Increased lambda light chain restricted monoclonal plasma cells (1.9% by flow cytometry, approximately 6% and aspirate count, but 50% by immunohistochemical stains [id number]). Sideroblastic iron present, negative for ring sideroblasts. Peripheral blood smear with mild red blood cell anisocytosis and polychromasia, leukopenia with absolute neutropenia (1000) and thrombocytopenia (54,000) consistent with prior baseline. Note: I discussed the results with Dr. Crook 01/26/2020. Preliminary findings were also discussed with Dr. Cummings 01/27/2020. Morphologic findings, immunohistochemical stains, flow cytometry, and ancillary studies may under represent the extent and severity of disease. The results of FISH myeloma panelwith prognostic markers and cytogenetic analysis are pending. --Given the patient's hip pain and presence of lytic lesions, she meets clinicalcriteria for activemyeloma. Given her hip pain and lytic lesions in weightbearing areas she was offered radiation therapy. She had a limited courseof hypofractionated palliative therapy to bilateral proximal femurs [address] Ahn. We discussed that given the COVID-19 epidemic and absence of othersignificant changes other than bony lesions (normal renal function, normal calcium, stable cytopenias), I would defer active therapy for myeloma for 4 to 6 weeks. Since she has significant history ofliver disease I will discuss her case with Dr. Piter Benavidez at [facility] malignant hematology for optimal regimen. The patient is not a transplant candidate given her nonalcoholic steatohepatitis and chronic thrombocytopenia but may be a candidate for either doublet therapy (Revlimid/dexamethasone) or triplet therapy with either Velcade/Revlimid/dexamethasone or daratumumab/Revlimid/dexamethasone. --02/03/2020: Mojgan presented unaccompanied for follow-up of bone marrow aspiration and biopsy performed by Dr. 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 The patient had been noting increased left hip pain over the past several months andplain films of the pelvis and bilateral femurs did show subtle lucencies in the bilateral proximal femurs corresponding to PET/CT findings but no other additional sclerotic lesions identified. No pathologic fractures were seen. --03/05/2020: Mojgan notes improvement of bilateral hip pain since radiation. No other changes in medical history in the past month--no infections, normal renal function, no hypercalcemia. Stable platelet counts without bleeding. Shewas given written literature regarding Dexamethasone, Velcade (thatwould be dose reduced to 0.7mg/m2 twice weekly), weekly Daratumumab and Revlimid, but I will defer decision of which regimen to use until discussion in malignant hematology tumor board. Also referring for infusion port placement prior to initiating therapy. Sign informed consent prior to initiating therapy. --Discussed with Dr. Benavidez who favors Daratumumab combination--will request prior liver biopsy and records from [facility] liver clinic. The patient and her son (by telephone) expressed understanding and will follow- up as directed in 2 weeks for consent and likely start of therapy. --04/02/2020: Mojgan presents after infusion port placement at [facility] by interventional radiology due to platelet count 40,000--she had increased bruising at site post procedure, but this has completely resolved. Her hip painis well controlled since completion of palliative radiation and no newareas of pain. She has previously reviewed information regarding Daratumumab (first dosesplit 8mg/kg IV D1,D2, then if well tolerated 16mg/kg IV weekly), Velcade at about 50% dose (for liver dysfunction) 0.7mg/m2 D1,D4,D8, D11, and [id number] IV weekly--repeat for every 3 week cycles 1st 3 cycles. She will take chemo class and likely start therapy within 2 weeks with toxicity visit in 3 weeks. Today we reviewed chemotherapy counseling for Daratumumab, Velcade, and Dexamethasone. Common toxicities were reviewed to include infusion reaction including rash/dyspnea/wheezing, myelosuppression, fatigue, nausea, vomiting, constipation, diarrhea, mouth sores, and alopecia. Other toxicities may in cludepneumonitis, neurologic, thromboembolism, hyperglycemia, hepatic and renal toxicities. The patient signed informed consent and will follow-up as directed. --04/19/2020: Mojgan is here for cycle 1 week 2 daratumumab 16 mg/kg weekly, Velcade 0.7 mg/m? twice weekly for first 2 weeks of every 3-week cycle, and dexamethasone 20 mg weekly. She did have an infusion reaction with first daratumumab with dyspnea and flushing but this improved after first dose and shehas not had recurrent infusion reactions. We have continued Velcade despite platelet counts in the 40,000 range without bleeding as we know that her baseline platelet counts remain in this range and she has not had any significant change from her baseline. Dexamethasone has caused hyperglycemia with blood sugars up to 400 and we are referring to diabetes management clinic. Otherwise she denies any significant nausea, emesis, fever, chills, night sweats, constipation, diarrhea, rash, mouthsores, or alopecia. She has not hadany change of baseline neuropathy. Liver function tests remain stable. She notes that her hip pain is well controlled since prior palliative radiation and she saw radiation oncology earlier this week with no new recommendations. I will send her myeloma labs including serum and urine protein electrophoresis, quantitative immunoglobulins, and serum kappa/lambda light chains in 2 weeks andfollow-up with her in 3 weeks. She may be seen sooner if new issues arise. This is a 67-year-old lady on chronic disability has a history of arthritis, diabetes mellitus, hypertension, COPD, GERD, and fibromyalgia who was previouslyfollowed [facility] for chronic mild to moderate thrombocytopenia. She states that she was followed with Dr. Kumari prior to his senior care and was told that she had an elevated protein level as well asthrombocytopenia but never had clinical bleeding. She is 4 para 4 without complicationsand was never told that she was thrombocytopenicwhile . She is had multiple prior surgical procedures without any clinical bleeding. She had been recommended for a pain procedure with Dr. Wilsonbut he declined to do the procedure because her platelet count was less than 100,000. For this reason she received 2 platelet transfusions, with little improvement of her platelet count and her second transfusion resulted in throat tightening due to allergy to platelets . She has never been treated with steroids and has never been told that she has immune thrombocytopenia. She has mild leukopenia with relative neutropenia, absolute neutrophil count of 400-800 and mild lymphocytosis. Hemoglobin is normal. She has not had any bright red blood per rectum or epistaxis. She has no history of bleeding within the familyhowever does have a mother and sister diagnosed with colon cancer, a brother diagnosed with lung cancer, and another sister diagnosed with breast cancer. She had prior pain in the right hand mainly at the first MCP joint with some associated swelling and right foot pain and was evaluated by podiatry. She was told that her blood tests were negative forgout. She had screening with MALLORY, CCP, and rheumatoid factor all of which were negative. She says that she previously saw Dr. Petersen for cirrhosis but did not know of any specific therapy. We reviewed these findings from her liver ultrasound ordered by Dr. Benavidez Summer 2016. Initial consultation with me March 16, 2017. --The patient has been followed by me for some time for diagnosis of smoldering myeloma with a prior bone marrow biopsy May 2017 showing 15% plasma cells but the patient remained asymptomatic without bone pain or other CRAB criteria for therapy. She is also noted to have an ascending aortic aneurysm and has chronicliver disease with cirrhosis secondary to nonalcoholic steatohepatitis. She haschronic thrombocytopenia without bleeding ranging from 50-100,000 this is felt to be due to sequestration from her nonalcoholic steatohepatitis. She was previously on a liver transplant list but was recently notified that she is no longer a candidate for liver transplant. She has had chronic pain from f ibromyalgia but noted increasing bilateral hip and upper thigh pain over the last 6 months. She also is followed for EGD/colonoscopy with last documented procedure 09/21/2018: 1. Normal EGD, 2. Mild sigmoid diverticulosis, 3. Internal hemorrhoids, grade 2, 4. Anal fissure with active bleeding cauterized by bipolar cautery Bone osseous survey in June 2019 showed osteopenia and degenerative changes but no lytic or blastic lesion. Patient had an F-18 PET scan 01/02/2020 which showed multiple areas of involvementof bones with increased SUV activity. She was contacted with these results by phone and I recommended bone marrow aspirate and biopsy for assessment and analysis. Her prior labs were reviewed. Her SPEP does not show anymonoclonal gammopathy. On VAHID there appears to be a trace of monoclonal gammopathy. Free light chain ratio is less than 100. There is no evidence of renal sufficiency. Patient is not anemic. She doeshave some abnormal areas on bone scan. - Summary of Therapies Summary of Therapies: 1. 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 2. She underwent a single dose of palliative radiation therapy to bilateral hips, receiving 800 cGyto right and left hip in 1 fraction in separate vaz (with a single isocenter). The treatments were given with AP/PA vaz [id number] MV photons and MLC blocks. 3. Deferred active therapy for myeloma 2 months given COVID-19 epidemic with increased risk of myelosuppression and viral transmission of contacts. --Follow-up 03/05/2020 I discussed her case with Dr. Piter Benavidez at malignant hematology. --Given her significant hepatic dysfunction, I presented her case at malignant hematology tumor board to discuss optimal therapy. 4. Cycle 1 day 1 04/10/2020: Dose reduced Velcade 0.7 mg/m? twice weekly (day 1,day 4, day 8, day 11)every 3 weeks with dexamethasone 20 mg weekly and daratumumab 16 mg/kg weekly of each 21-day cycle.After first week, Velcade decreased to 0.7mg sq weekly due to thrombocytopenia. --We will need to watch liver function, platelet count, and neuropathy closely on Velcade. 5. Cycle 9 day 1 10/02/2020: Daratumumab 16mg/kg once monthly maintenance therapy until progression. 6. 07/31/2021: Palliative radiation therapy to right supra chondral/soft tissuearea of hip which is PET positive. She received a dose of 3000 cGy in 10 fractions from 07/31/2021 to 08/15/2021 over 15 elapsed days 7. 08/30/2021: Right hip pain improved after radiation. Due to disease progression with persistent cytopenias, changed to repeat loading doses of daratumumab 16 mg/kg weekly for cycles 1 through 3 with Revlimid 5 mg daily for 3 weeks on 1 week off. Held Revlimid second week due to neutropenia with sinus infection, resumed 3 days ago (09/17/2021). Referred for CAR-T therapy evaluation. 8. 12/18/2021: Daratumumab is now 16 mg/kg every 2 weeks with Revlimid 5 mg daily for 2 weeks on 2 weeks off due to neutropenia and thrombocytopenia. Stillpending evaluation for CAR-T therapy. 9. 01/22/2022: Patient is not deemed a candidate for stem cell transplant or CAR- T therapy at this time. Discussed changing from current Revlimid to pomalidomide with continued daratumumab 16 mg/kg every 2 weeks. Plan change in therapy in 1 month. 10. 02/19/2022: Continue daratumumab 16 mg/kg IV every 2 weeks and changed to pomalidomide now 3 mg daily days 1 through 21 of each 28-day cycle (lower dose due to baseline liver dysfunction) -- 03/19/2022: Patient was noted to tolerate Pomalyst only 1 week (03/05- 03/13/2022)due to grade 3 rash. This resolved after stopping medication 1 week later. 1 dose level reduction Pomalyst to 2 mg daily days 1 through 21 of each 28-day cycle. Also holding daratumumab daily for platelet count of 41,000 and will resume at full dose with first dose of Pomalyst. -- 04/09/2022: Platelet 40,000 without bleeding. Will continue monthly Daratumumab with change of Pomalyst to 2mg D1-14 each 28 day cycle (off 2 weeks due to low platelets). Rising lambda light chains,unable to tolerate Pomalyst due to cytopenias, stopped mid 07/2022. 11. 07/18/2022: carfilzomib (dose 20mg/m2 day one then 27mg/m2 D8, D15) with cyclophosphamide 300mg IV weekly and weekly dexamethasone. Baseline echocardiogram EF 60-65%. We will follow closely for her chronic cytopenias andliver dysfunction. -- 10/29/2022: Regimen on hold for past 2 weeks due to cytopenias. Today with ANC 400, holding another week and will reduce dose of carfilzomib to 20mg/m2 IV weekly with cyclophosphamide 300-->240mg/m2 IV weekly, continue weekly dexamethasone. -- 11/26/2022: ANC 700, Platelets 40,000. Continue carfilzomib 20mg/m2 IV weekly with cyclophosphamide 300-->240-->180mg/m2 IV weekly, continue weekly dexamethasone. -- Carfilzomib/cyclophosphamide on hold since 12/04/2022 due to cytopenias, pending evaluation by for bispecific antibody therapy. --01/09/2023: Improving cytopenias ANC 900, platelets 68,000. --02/18/2023: Still on hold since 12/04/2022 (if resumed will give carfilzomib 20mg/m2 IV weekly with cyclophosphamide 300-->120mg/m2 IV weekly. 02/24/2023 bone marrow with 4% plasma cells, hypocellular 10%. Continue to hold active therapy for myeloma 03/2023 and 06/2023 visits. Second opinion with Dr. Lindquist at . ROS Details: All systems reviewed & no additional complaints except as documented Subjective/ROS - Narrative: Constitutional: No Chills, No Diaphoresis, Stable Fatigue, No Fever, No Malaise, No Night Sweats, No Weakness, No Weight Gain, No Weight Loss Gastrointestinal: No Abdominal Pain, No Black Stool, No Bloating, No Bloody Stool, positive for constipation, No Diarrhea, No Dysphagia, No Hematemesis, No Nausea, No Postprandial Pain, No Rectal Bleeding, No Rectal Pain, No Vomiting, Other (chronic gastroesophageal reflux stable) --No jaundice or ascites but patient has longstanding nonalcoholic steatohepatitis with cirrhosis, previously followed by [facility] gastroenterology. Cardiovascular: No Chest Pain, No Edema, No Palpitations, No Syncope Genitourinary: No Discharge, No Dysuria, No Flank Pain, Frequency (chronic andunchanged), Resolved Hematuria, No Incontinence, No Nocturia, No Urgency, No Urinary Retention Musculoskeletal: + left shoulder and neck pain as per HPI (no thoracic cord compression). Recent worsening right hip/thigh pain; positive for intermittent lumbar back pain, No Chest Wall Tenderness, Improvement of prior Joint Pain, Muscle Stiffness, Myalgia (history of fibromyalgia), --unremarkable skeletal survey June 2019. 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 12/2020: F-18 PET/CT stable. 04/2021 F-18 PET/CT stable. Right hip pain mildly improved after palliative radiation. 04/30/2022 repeat Axumin F-18 PET/CT stablefrom 1 year ago. HEENT: + frontal headache and sinus tenderness/congestion--improved. No Blurred Vision, No Discharge, No Ear Pain, No Epistaxis, No Sore Throat --patient was seen in emergency department November 2019 with persistent epistaxis. She was treated with nasal clip and packing and was advised to continue Afrin. No recurrent bleeding. 2 courses of antibiotics in Aug-Sep 2021 for recurrent sinusitis. 11/30/2022: Polyp only on CT (no air-fluid level). 12/26/22: Augmentin 2 week course and hold chemo. Respiratory: No Cough, No Hemoptysis, mild Shortness of Breath (chronic and unchanged due to COPD),No Sputum, No Wheezing--shortness of breath with daratumumab reaction dose 1 04/10/2020 (given a split dose over 2 days). No recurrent reaction since first dose. Neurological: No Dizziness, Stable Numbness/Tingling (reports long-standing bilateral foot numbness--unchanged since starting low-dose Velcade 04/10/2020), NoPre-existing Deficit (no history of stroke or seizure), intermittent headache Hematologic/Lymphatic: No significant bleeding thrombocytopenia from sequestration/myeloma disease,Bruises Easily, No Enlarged Lymph Nodes, Other (reports allergy to prior platelet transfusion) Endocrine: Excessive Sweating (hot flashes, postmenopausal) Flushing, No Intolerance to Cold, Intolerance to Heat Psychiatric: No Depressed Mood, No Insomnia Integumentary: No Jaundice, No Lesions, positive for diffuse rash on Pomalyst 3mg daily as per HPI.1 level dose reduction to 2 mg daily with only mild rash/pruritus. Due to cytopenias Pomalyst is reduced to 2 mg twice weekly on Mondays and . Stopped Pomalyst in Jul 2022--no recurrent rash. Allergic/Immunology: Previous pruritus with Pomalyst rash resolved off Pomalyst. PMFSH - History Attestation statement: The following information was validated with the patient. Source: Old Records Reviewed - Medical History Medical History: Medical History (Last Reviewed 06/10/23 @ 19:20 by Fabiola Marinelli MD) Aortic aneurysm COPD (chronic obstructive pulmonary disease) Diabetes Fibromyalgia GERD (gastroesophageal reflux disease) Hypertension Iron deficiency Multiple myeloma Neutropenia Smoldering multiple myeloma (SMM) Smoldering myeloma Temporary low platelet count - Surgical History Surgical History: Surgical History (Last Reviewed 06/10/23 @ 19:20 by Fabiola Marinelli MD) H/O: hysterectomy History of appendectomy History of cholecystectomy - Family History Family History: Family History (Last Reviewed 06/10/23 @ 19:20 by Fabiola Marinelli MD) Other COPD (chronic obstructive pulmonary disease) - Social History Smoking Status: Former smoker Tobacco Type: cigarettes Substance Use Type: None Social History Comments: Lives with son a juli Home Medications & Allergies Allergies diclofenac [From Voltaren] Allergy (Verified 06/10/23 13:18) Hives doxycycline [From Vibramycin] Allergy (Verified 06/10/23 13:18) Hives erythromycin base [From E-Mycin] Allergy (Verified 06/10/23 13:18) Hives latex Allergy (Verified 06/10/23 13:18) Unknown Reaction moxifloxacin [From Avelox] Allergy (Verified 06/10/23 13:18) Hives Quinolones Allergy (Verified 06/10/23 13:18) Unknown Reaction tetracycline Allergy (Verified 06/10/23 13:18) Unknown Reaction Home Medications carvedilol 12.5 mg tablet 12.5 mg PO BID 11/20/17 [History Confirmed 06/10/23] duloxetine 60 mg capsule,delayed release 60 mg PO DAILY 11/20/17 [History Confirmed 06/10/23] insulin detemir U-100 100 unit/mL (3 mL) subcutaneous pen 22 units subcut DAILY PRN Hyperglycemia 11/20/17 [History Confirmed 06/10/23] oxycodone 10 mg tablet 10 mg PO BID PRN Pain 11/20/17 [History Confirmed 06/10/23] albuterol sulfate 90 mcg/actuation aerosol inhaler 2 puff inhalation Q6H PRN Shortness Of Breath 11/24/17 [History Confirmed 06/10/23] omeprazole magnesium 20 mg tablet,delayed release (Prilosec OTC) 40 mg PO DAILY 11/24/17 [History Confirmed 06/10/23] metformin 500 mg tablet,extended release 24 hr 500 mg PO BID 03/05/20 [History Confirmed 06/10/23] semaglutide 0.25 mg or 0.5 mg (2 mg/1.5 mL) subcutaneous pen injector (Ozempic) 1 mg subcut QWEEK 09/24/20 [History Confirmed 06/10/23] vitamin B12 0.5 mg-folic acid 1 mg tablet 1 tab PO DAILY 03/28/21 [History Confirmed 06/10/23] lactulose 20 gram/30 mL oral solution 20 g (30 mL) PO BID PRN Constipation #600 mL 04/09/22 [Rx Confirmed 06/10/23] acyclovir 400 mg tablet 400 mg PO BID 90 days #180 tabs 09/24/22 [Rx Confirmed 06/10/23] loratadine 10 mg tablet (Claritin) 10 mg PO DAILY 12/26/22 [History Confirmed 06/10/23] atorvastatin 80 mg tablet 80 mg PO DAILY 01/28/23 [History Confirmed 06/10/23] cyanocobalamin (vitamin B-12) 1,000 mcg sublingual tablet 1,000 mcg sublingual DAILY 01/28/23 [History Confirmed 06/10/23] dexamethasone 4 mg tablet 20 mg PO DIRECTED PRN Systemic Signs And Symptoms 01/28/23 [History Confirmed 06/10/23] fluticasone propionate 50 mcg/actuation nasal spray,suspension 1 spray intranasal DAILY PRN AllergySymptoms 01/28/23 [History Confirmed 06/10/23] insulin aspart U-100 100 unit/mL (3 mL) subcutaneous pen (Novolog FlexPen U-100 Insulin aspart) 25 unit subcut DAILY PRN Hyperglycemia 01/28/23 [History Confirmed 06/10/23] lisinopril 5 mg tablet 5 mg PO DAILY 01/28/23 [History Confirmed 06/10/23] ondansetron 8 mg disintegrating tablet 8 mg PO TID PRN Nausea #30 tabs 02/10/23 [Rx Confirmed 06/10/23] gabapentin 400 mg capsule 400 mg PO TID pain 02/24/23 [History Confirmed 06/10/23] potassium chloride 10 mEq capsule,extended release 10 meq PO DAILY #30 caps 05/18/23 [Rx Confirmed 06/10/23] Objective - Height/Weight Height/Weight: Height 5 ft 2.99 in Weight 81.647 kg BSA for Today's Weight 1.93 - Vital Signs Vital Signs: 06/10/23 13:23 Temperature 97.8 F Pulse Rate [Left Brachial] 77 Respiratory Rate 16 Blood Pressure [Right Arm] 110/63 02 Sat by Pulse Oximetry 98 Oxygen Delivery Method Room Air - Pain Generalized Pain Intensity: 3 Bilateral Hip Pain Intensity: 5 Left Hip Pain Intensity: 4 Lower Back Pain Intensity: 7 Left Neck Pain Intensity: 4 Back Pain Intensity: 0 Right Thigh Pain Intensity: 3 Bilateral Leg Pain Intensity: 5 Generalized Head Pain Intensity: 4 Bilateral Shoulder Pain Intensity: 6 Left index finger Pain Intensity: 4 - Distress Screening Distress Screen Results: RN Distress Screening Start: 02/07/20 10:17 Freq: Status: Complete Protocol: Document 05/01/20 09:33 DB (Rec: 05/01/20 09:33 DB [id number]) Distress Screening Distress Score: 0 No worry/distress Distress Screening Total 0 RN Distress Screening Start: 07/26/21 12:37 Freq: Status: Active Protocol: Document 02/18/23 10:19 LB (Rec: 02/18/23 10:20 LB [id number]) Distress Screening Distress Score: 8 Physical Concerns Pain,Trouble Sleeping Emotional Concerns How my body looks,Feeling uncertain about the future Comments defer to patient navigator Distress Screening Total 8 Distress score of 4 or more discussed No with patient? Physical Exam Narrative: Patient is alert and oriented x3. HEAD / FACE: Normocephalic. No tenderness to palpation over scalp, no sinus tenderness to palpation. EYES: Pupils are equal and reactive to light. Conjunctivae and lids are benign in appearance. Ocular movement intact. EARS: Hearing grossly intact. NOSE / MOUTH / THROAT: No frontal/maxillary sinus tenderness. No oral thrush oraphthous ulcerations. NECK / THYROID: No cervical adenopathy on exam. Thyroid is symmetrical, withoutthyromegaly, masses or palpable nodules. RESPIRATORY: Normal inspection. Lungs clear to auscultation and percussion. No wheezing, rales, rhonchi or rubs. Normal effort. CARDIOVASCULAR: Regular rate and rhythm. No murmurs, gallops, or rubs. ABDOMEN: Bowel sounds normoactive. Soft, nontender and non-distended. No hepatosplenomegaly. No masses. INTEGUMENTARY: The skin is unremarkable. No suspicious lesions or rash. Scattered arm bruising. No petechiae noted. MUSCULOSKELETAL: Normal musculature, normal ROM upper and lower extremities, no crepitus. EXTREMITIES: No leg edema. No cyanosis or clubbing. NEUROLOGICAL: Alert and oriented. Cranial nerves intact. No gross motor or sensory deficits, patient ambulates unassisted. PSYCHIATRIC: No anxiety or evidence of depression. - ECOG Performance Status ECOG Score: 1 Results - Labs Labs: Diagram of Most Recent CBC and CMP 06/03/23 10:36 06/03/23 10:36 Labs - Last 7 Days 06/03/23 10:36: IgG 525 L, IgA 38 L, IgM 32, Free [place] LC, Quant 13.9, Free Lambda LC, Quant 241.0H, Free [place]/Lambda Ratio 0.06 L - Impressions PET f-18 bone subq (nopr) 03/09/2023 12:42 PM SIGNS AND SYMPTOMS: History of multiple myeloma PROTOCOL: PET images were obtained after intravenous radiotracer administration from the top of theskull through the feet. Low-dose CT of the same anatomy was performed. After attenuation correctionof PET imaging, fused PET CT images weregenerated and reconstructed in axial, sagittal, and coronalplanes. COMPARISON: 03/30/2022 RADIOPHARMACEUTICAL: 10.31 mCi of intravenous fluorine 18 sodium fluoride FINDINGS: There is diffuse abnormal increased radiotracer accumulation throughout the calvarium, spine, sternum, clavicles, shoulders, distal humerus, proximal radiusand ulna, pelvis, femurs, left tibia, and bilateral [...] prior exam and consistent with diffuse marrow infiltrativeprocess/history of multiple myeloma. No new areas of abnormal radiotracer accumulation are appreciated. Impression dictated by: Juan J Frazier M.D.03/09/2023 3:22 PM Assessment and Plan - TNM Staging Staging: Stage IIIA Multiple Myeloma (Durie Boring criteria) (1) Multiple myeloma Qualifiers: Multiple myeloma remission status: not in remission Qualified Code(s): C90.00 - Multiple myeloma not having achieved remission Mojgan 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 She has high risk cytogenetics and I [facility]. Her persistent thrombocytopenia made her ineligible for any clinical trials, and preventedher from receiving local pain procedures given her chronic low back pain. --05/2017 PET/CT images and reports performed for staging to exclude bone involvement with myeloma. 2 indeterminate areas of uptake thought to be degenerative arthritis vs early bone findings of myeloma (right parietooccipital areaand upper sternum). She has remained asymptomatic in [...] showed no lytic lesions and she has stableshoulder, hand, and right SI joint pain (although likely due to fibromyalgia. --Prior osseous survey 07/01/2019 showed osteopenia but no compression fractures or lytic lesions were identified. She had no significant change in myeloma labs(mild increase of urine M-spike, kappa/lambda ratio, and normal serum M- spike and quant immunoglobulins). Urine protein still undetectable, therefore will continue surveillance every 6 months with the same labs--no hypercalcemia, renaldysfunction (or proteinuria), anemia, or new bone symptoms. [...] proteins with urine M spike 43.1 but totalprotein 34.4, with no reported urine creatinine. --We deferred immunosuppressive chemotherapy for about 1 month due to control ofsymptoms after palliative radiation and concern of potential peak of COVID-19 inlate January early March. --She presented for follow-up 03/05/2020 and we discussed potential therapy options (with son available by phone). --I discussed her case with Dr. Piter Benavidez of malignant hematology, possibly presenting the patient in hematology tumor board at [facility]. --Infusion port placed 03/22/2020 at [facility] due to low platelets. No complications. --03/12/2020: Myeloma labs with no serum M-spike, + urine M spike 22.2mg/24h (14%). Immunofixation IgA lambda specificity. IgA normal 227, Serum kappa 20.6, serum lambda 516.7, Free kappa/lambda ratio0.04. Normal renal function and calcium. Lower ANC 600 and platelets 40,000 --04/10/2020: Started cycle 1 day 1 of weekly dexamethasone 20 mg IV (careful to watch blood sugars with diabetes and known hepatic dysfunction), decreased dose of bortezomib 0.7 mg/m? twice weekly for2 weeks on 1 week off (due to known liver disease and thrombocytopenia), and daratumumab 8mg/kg D1,D2 IV first week,then 16 mg/kg IV weekly and we may consider Revlimid as a 4th medication if needed (deferred for worsening neutropenia and thrombocytopenia--I am reluctant to add this therapy initially). --------- --01/21/2021: One year f/u F18 PET/CT with stable FDG avidity, monoclonal labs (SPEP, Quant Igs, kappa/lambda ratio) all pending. Stable CBC and CMP. Persistent pain left hand 2nd MCP joint--increaseduptake on PET/CT but no lesion on left hand xray from 11/2020. Sending for ortho evaluation. For nowcontinue once monthly Daratumumab. F/u with myeloma labs and exam in 2 months, sooner prn. --05/24/2021: Bone marrow biopsy does not show significant progression although poor prognosis mutation 1q with 13q on FISH. Hypocellular with recent worseningplatelets without bleeding--will recheck B12, folate, and ferritin. [...] sent for plain films of the hip femurand knee showing degenerative changes but no acute [...] progression although she still has slow rise inlambda light chain and platelet count remains in [...] Benavidez who advised against Kyprolis due to herknown liver disease. He recommended repeating loading doses of weekly daratumumab with low dose Revlimid (I will start with 5mg daily D 1-21 each 28 day cycle due to her thrombocytopenia). F/u 2 weeks for toxicity check. She will sign Revlimid consent Thursday. She is in agreement with this plan. --09/20/2021: Started daratumumab loading doses weekly with Revlimid on 09/04/2021. Held therapy forANC 900 and platelet 42,000 with sinus infection, now resolved and resumed Revlimid 5mg daily on 09/17. Will continue therapy as prescribed with weekly CBC and hold Revlimid as needed for cytopenias.Evaluation for [facility]T therapy at [facility]. Send myeloma labs and skeletal survey [...] current cycle of Revlimid with change to pomalidomide4 mg daily, follow weekly CBCs after change in therapy and determine optimal dose based on symptomsand cytopenias. Patient is in agreement with this plan. Next follow-up with me in 1 month and we will defer next light chain analysis until 1 month after change in therapy. --02/19/2022: Continued rise in lambda light chains and worsening thrombocytopenia. Today we reviewed informed consent for adding pomalidomide 3 mg daily days 1 through 21 every 28 cycle 2 every otherweek daratumumab. We are dropping Revlimid due to [...] initial cycle was only given 03/05-03/13/2022. Now yamile has complete resolution of symptoms she may resume pomalidomide at 1 dose level reduction 2 mg daily for days 1 through 21 of each 28-day cycle. We are also holding her daratumumab today due to declining her platelet count 41,000 without bleeding. Repeat kappa/lambda light chain ratio was increased 80 on 5 4but this was her first dose of pomalidomide. Plan anticipate arrival of pomalidomide within the next 1 to 2 weeks and she may resume daratumumab on day1 of therapy. Her next follow-up will be [...] for following myeloma show normal mild increase herfree lambda from 87 to 106, kappa/lambda ratio decreased 0.10-0.09. I will give her 1 more month ofpomalidomide with daratumumab and dexamethasone. The pomalidomide dose will be changed to 2 mg p.o.days 1 through 14, off days 15 through [...] bony lesions. Her kappa/lambda light chain ratio remainsrelatively stable since early March (0.09-0.11) with free lambda light chainsnow relatively stable (106-109). I advised continuing her current regimen and reevaluating with kappa/lambda light chain ratio in 2 months. Continue current dosing and close observation due to platelet count 48,000. No signs or symptomsof infection. Patient is in agreement with this plan. --07/10/2022: Mojgan has no new symptoms, but continued cytopenias with 2 weeks of pomalidomide helddue to recurrent neutropenia and persistent thrombocytopenia (40-50,000). Continued uptrending lambda light chains consistent with progression of myeloma. We did discuss bone marrow biopsy, but this would not policy change clerk, therefore we will give Pomalyst (now decreasedto 2mg Thursday and only) with last dose Daratumumab tomorrow. 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 --09/17/2022: Mojgan is here for cycle 3 of modified CYKLONE regimen. She continues to do ok with only mild fatigue, no other new complaints or s/s of infection. She is ok to treat per discussion with Dr. Marinelli despite low WBC, ANCand platelets. She will follow-up in 3 weeks [...] CBC, CMP, SPEP, VAHID, immunoglobulins, and FLC. Sheis in agreement with this plan and has no questions. --10/29/2022: Stable symptoms on current therapy. Recent viral infection with worsening cytopenias.She has been off weekly therapy for the last 2 weeks due to cytopenias, therefore we will hold 1 further week and if her blood counts meet parameters, she will have dose reduced Carfilzomib 27-->20mg/m2 IV weekly, Cyclophosphamide 300-->240mg/m2 IV weekly, and Dexamethasone 20mg IV/po weekly. She is overdue for echo which was ordered today and we will check results beforeresuming therapy. Next follow-up with me in 6 weeks or sooner as needed. [place]/lambda light chains were reviewed and doshow partial response over the last 3 months. We will continue to follow at least every 2 to 3 months while ontherapy. . No longer a candidate for Blenrep--access removed by FDA for limitedefficacy. Moderate complexity 35 minute followup visit. --11/26/2022: No new symptoms with ongoing response of lambda light chains but persistent cytopenias. In absence of new symptoms of infection or bleeding, we will continue therapy with further dose reduction of cyclophosphamide to 180mg/m2 IV weekly with stable dose Kyprolis 20mg/m2 IV weekly and Dex amethasone. Discussed with Dr. Benavidez at --he would support holding therapy and observation if persistent cytopenias and consider bone marrow biopsy. For now will continue monthly followup and myeloma labs every 1-2 months. She may be a candidate for bispecific antibody in the future if refractoryor intolerant of current therapy. Echo stable cardiac function EF 55-60%. She agrees with this plan. Covered with Amoxicillin bid x [address] for recurrent headaches given her neutropenia.Will call with results and ENT consult if air fluid level on sinus CT. Moderate complexity 35 minute followup visit. --12/26/2022: Cyclophosphamide 180mg/m2 IV weekly, Kyprolis 20mg/m2 IV weekly, and Dexamethasone 20mg weekly on hold with last dose 12/04/2022 due to persistent cytopenias and sinusitis. She now has [id number] and platelets 37,000 without bleeding. Relatively stable lambda light chains in 40s range. I will hold therapy another 2 weeks, give Augmentin 875mg bid x 2 weeks for persistent sinusitis (no airfluid levels on CT scan), and send referral to Dr. Benavidez for possible CD3/BCMA bispecific antibody therapy (risk of cytokine release syndromewith first dose, requires inpatient observation at a [...] first week due to risk of cytokine releasesyndrome). Nextfollowup with myeloma labs in 2 months, sooner prn. 30 minute moderate complexity followup. --02/18/2023: No active therapy since 12/04/2022--platelets have not improved. Continued uptrending kappa light chains (now 60s range). 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 Worsening right hip/leg pain--repeat PET/CT to determine if bony progression (plain film without obviouslytic lesion right hip/femur). Will set up IR guided bone marrow biopsy to evalwhether persistent cytopenias due to progression vs. therapy related MDS. Hold Kyprolis/Cytoxan and if no progression or MDS on bone marrow biopsy, we will resume lower dose Cyclophosphamide 120mg/m2 IV weekly,Kyprolis 20mg/m2 IV weekly, and Dexamethasone 20mg weekly. [...] cells in addition to a 12% atypical clonalB-cell population on flow cytometry. Given her hypocellularity and low percentage of plasma cells despite increasing lambda light chains onperipheral blood, we will continue to hold her cyclophosphamide, Kyprolis, and dexamethasone. She did receive 1 infusion of IVIG in early January mainly due to recurrent sinusitis but has not required any active antibiotics. This also did not improve her platelet count which is still 28,000. Due to hypocellular marrow wewill send methylmalonic acid and homocystine to assess [...] if new issues arise. High complexity 45-minute visit for review of bone marrow biopsy, imaging, complex medical testing, discussion of plan. --06/10/2023: Stable right hip pain and neuropathy. Off active therapy with cyclophosphamide, Kyprolis, and dexamethasone since 12/2022. Platelet count still 28,000 without active bleeding. Hemoglobin stable at 10 but worsening [id number] with ANC 1000. Rising lambda light chains [...] 3 months. Moderate complexity 35 minute followup. (2) Bone marrow hypocellularity Hypocellular for age with 10% cellularity. Nutritional work-up as noted above. No vitamine deficiencies noted. We will try to defer repeat bone marrow biopsies as long as we can given her light chainmyeloma. 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 I previously reviewed her outpatient records from [facility], including review of notes, laboratories, and prior bone marrow biopsy 13 years ago. 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 Most recent platelet count is relatively stable at 54,000 but no clinical bleeding. She waspreviously referred to weight reduction clinic and may have slow improvement of steatohepatitis with lifestyle modification. Unless she has active bleeding or planned surgery, we will continue observation during treatment of active myelomato commence next month as noted above. --Agree with recommendation for EGD surveillance for varices (last was 09/2018--negative). This will be deferred during current COVID-19 epidemic. --Prior vitamin B12 and folic acid are normal, for known history of neuropathy. As noted above, I reviewed the negative M spike on serum protein electrophoresiswith immunofixation, but positive for Bence Murray protein on urine protein electrophoresis. Her Quantitative immunoglobulins IgG, IgA, and I gM were all within normal limits, however her serum kappa lambda light chain analysis showeda predominance of lambda light chains. --Previous labs for lupus anticoagulant with DRVVT, hexagonal phase phospholipid, anti-cardiolipin IgG and IgA, and beta 2 glycoprotein IgG and IgA were within normal limits. --Evaluated in ED November 2019 for epistaxis which resolved. Platelet count wasstable at 12/28/2019 follow-up. She continues surveillance with liver clinic at [facility] and I will continue to follow her every 6 months, sooner if newbleeding issues arise. --04/02/2020: We reviewed informed consent for Daratumumab/Velcade/Dexamethasone for active myeloma therapy. I requested prior liver biopsy results and notes from liver clinic at [facility]. Platelet count in 40,000 range but patient has had no active bleeding following infusion port placement 03/22/2020. --08/13/2020: Cycle 6 week 2 toxicity check with improved thrombocytopenia 79,000 range with no bleeding. We will continue current dosing with Velcade 0.7mg/m2 sq (now once weekly), dexamethasone 20 mg weekly, and full dose daratumumab with close follow-up of liver function and platelet counts. --09/24/2020, 01/21/2021, 03/28/2021: Platelets stable 60-70,000 with no new toxicities, started Daratumumab maintenance 10/02/2020. --04/24/2021: Platelets now down to 57,000 with rising lambda light chains. Will eval with repeat bone marrow biopsy due to nonsecretory myeloma. --05/24/2021: Bone marrow hypocellular without significant myeloma progression. Normal B12/folate stores, continue Daratumumab maintenance. --08/16/2021: Persistent thrombocytopenia in 50,000 range, consider change in therapy due to risinglambda light chains. Will check echo and review case withErna Benavidez at to discuss next line of therapy. --08/30/2021: Stable platelets--decision to resume weekly Daratumumab 16mg first 3 cycles and change to Revlimid 5mg daily 1-21 each 28 day cycle--titrate as tolerated --09/20/2021: Platelets have declined to 40-50,000 range without mucosal bleeding. Held Revlimid atplatelets 42,000 during sinus infection, resumed after one week off. Will follow weekly CBCs on Daratumumab/Revlimid. --12/18/2021, 01/22/2022: Platelets still in the 50,000 range without mucosal bleeding. Current dosing of daratumumab every 2 weeks and Revlimid 5 mg daily 2weeks on 2 weeks off--plan to change to pomalidomide 3 mg daily next cycle. -- 02/19/2022: Last week platelets were 48,000 and we held Revlimid. This week platelets 58,000 but continuing to hold Revlimid due to change to daratumumab 16mg/kg IV every 2 weeks with pomalidomide 3 mg daily days 1 through 21 every 28-day cycle -- 03/19/2022: Platelets were down to 41,000 and we held daratumumab as well as Pomalyst for rash asnoted above. Resume Pomalyst at 2 mg days 1 through 21 every 28 days. Continue daratumumab 16 mg/kgevery 2 weeks. -- 04/09/2022: Platelets down to 40,000. Okay to give daratumumab 16 mg/kg IV every 2 weeks but Pomalyst dose will be changed to 2 mg days 1 through 14 every 28 days. Follow-up 1 month. -- 05/07/2022: Platelets 48,000. Continue monthly daratumumab 16mg/kg IV with same Pomalyst dose 2mg daily D1-14 every 28 days. Extend next follow-up with kappa/lambda light chain ratio to 2 months. --07/10/2022: Platelets 53,000 with ANC now 600 (held Pomalyst one week for ANC 300). May have one dose Pomalyst today, then hold for change in therapy. Will have platelet transfusion as needed for change in therapy to Kyprolis/Cytoxan/Deamethasone. --08/20/2022: Platelets declined to mid 30,000 range about 4 weeks ago--now up to 56,000 and WBC 1600 and ANC 1000 on Kyprolis/Cytoxan/Deamethasone. No activebleeding. Continue current dosing and f/uin 3 weeks. --09/17/2022: Platelets at 43,000 without recent transfusion. WBC and ANC at 1.4and 600 respectively. Will continue with treatment. --10/15/2022: Platelets at 49,000. No s/s of bleeding. Ok for treatment. --10/29/2022: Platelets at 31,000 with ANC 400. Dose reductions recommended asnoted above. No active bleeding. Follow-up 6 weeks. --11/26/2022: Platelets at 40,000 with ANC 700. Dose reduction cyclophosphamideonly as noted above. No active bleeding. Follow-up 4 weeks. --No chemo since 12/04/2022. Platelets 37,000-->68,000. --02/18/2023: Platelets still 35,000. Sending for IR guided bone marrow biopsy. Will continue to hold chemotherapy until bone marrow biopsy review in 3 week. We may resume with cytoxan dose reduction if no progression or MDS. She may be a future candidate for bispecific antibodies for multiple myeloma. Still has nobleeding. -- 03/11/2023: Platelets have now declined to 28,000. She had increased bruisingaround the site of her bone marrow biopsy [...] above--await second opinion from Dr. Lindquist tomorrow. (4) Cancer-related pain Improved symptoms after palliative radiation to bilateral hips--one dose 02/07/2020, radiation to right hip . Will continue to follow on myelomachemotherapy. Extensive, but stable bone involvement on F-18 PET/CT 12/2020 and 04/2021. Recent increased left neck and shoulder pain. Increased oxyco done dosing to three times daily, no unusual right hip pain is noted above--followed by palliative medicine. -Completed right hip radiation with persistent but improved pain--no new pain issues with follow-upvisit with radiation in early March 2022, follow-up as needed. Will continue to follow with palliative medicine. --02/18/2023: Worsening right hip pain--pending PET/CT for restaging as noted above, f/u 3 weeks. -- 03/11/2023: No change in uptake in the right hip on PET/CT. Following with palliative medicine. No indication for reirradiation to right hip unless refractory to medication therapy. No change in symptoms at 06/10/2023 followup. 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 She [facility]ref[facility] to [facility] to attempt weight reduction through diet and exercise that may prevent further fatty infiltration that may further impairher liver function. [facility] [facility] hepatology discussed liver transplant but sheis likely no longer a candidate for this given active myeloma. We chose least hepatotoxic regimen for treatment of her active myeloma with 50% dose reduction of Velcade. Liver function remained stable since start of therapy 04/10/2020. --Requested prior liver biopsy and [facility] liver clinic records. Dose reduction 20% Kyprolis due to KAPADIA with cirrhosis (normal bilirubin and transaminases). Stable LFTs on current Kyprolis/Cytoxan/Dexamethasone therapy (on hold since 12/04/2022). (6) Encounter for coordination of complex care Initial Daratumumab maintenance tolerated well without significant toxicities. Bone marrow biopsy did not reveal indication for change in therapy. --09/04/2021: Repeat loading with weekly Daratumumab 16mg first 3 cycles and changed to Revlimid 5mgdaily 1-21 each 28 day cycle--02/19/2022 reviewed informed consent to change to pomalidomide next cycle. --03/19/2022. Pomalyst was stopped after 1 week of therapy on 03/13/2022. Daratumumab held 03/19/2022 due to platelet count 41,000. We resumed both medications on arrival of dose reduce Pomalyst 2 mg days 1 through 21 every 28- day cycle. -- 04/09/2022: Daratumumab is monthly maintenance. Mid July: last dose Pomalyst 2mg today with ANC 600. -- 07/30/2022: Changed chemo to Kyprolis/Cytoxan, normal baseline Echo. -- 10/29/2022: Dose reductions for cytopenias Carfilzomib 27-->20mg/m2 IV weekly, Cyclophosphamide 300--240mg/m2 IV weekly, and Dexamethasone 20mg IV/po weekly. Will continue every 3 week therapy until progression or intolerable toxicity. --11/26/2022: Platelets at 31,000 with ANC 400. Dose reductions Carfilzomib 27-->20mg/m2 IV weekly, Cyclophosphamide 300--240-->180mg/m2 IV weekly, and Dexamethasone 20mg IV/po weekly. Therapy on hold since 12/04/2022 for cytopenias and sinusitis. Continue to hold 02/18/2023 pending bone marrow biopsy. -- January 2023: 1 dose IVIG 0.4 mg/kg due to recurrent sinusitis. No improvementof platelet count. -- 03/11/2023: Bone marrow biopsy with 10% cellularity, 4% plasma cells. Decision to continue to hold carfilzomib/cyclophosphamide/dexamethasone and work-up for nutritional etiologies. --06/10/2023: Continue observation off chemotherapy x 6 months. Second opinion with Dr. Lindquist at (virtual consult tomorrow). - Chemo Plan Chemo Plan (Dose, Rate, Freq): Active chemotherapy on hold since 12/05/2022 due to persistent thrombocytopenia. Goal of Treatment: Palliative - Time with Patient Time Spent with Patient (Follow Up Visit): 35 minutes - Moderate complexity--review symptoms and labs, continue to hold therapy, second opinion virtual visit [facility] Coordination of Care & Counseling Time: Greater than 50% of time spent with patient was for coordination of care (as documented) and [id number] counseling of patient and/or family. Dictated By: Fabiola Marinelli MD DD/ [id number] Signed By: <Electronically signed by MD Fabiola Marinelli> 06/10/23 [address] [facility] Work Phone: [phone]) 288-134608-02-2023 Evaluation note* Encounter Date Diagnosis Assessment Notes Treatment Notes Treatment Clinical Notes Jun, Cancer associated pain (ICD-10 - G89.3) OARRS reviewed, consistent with Rx [employer] Other 06-29-2023 Evaluation note* Encounter Date Diagnosis Assessment Notes Treatment Notes Treatment Clinical Notes Apr, Cancer associated pain (ICD-10 - G89.3) OARRS reviewed, consistent with Rx [employer] Other 06-15-2023 Evaluation note* Encounter Date Diagnosis Assessment Notes Treatment Notes Treatment Clinical Notes Apr, Multiple myeloma (ICD-10 - C90.0 0) On a treatment break with close lab monitoring Apr,ancer associated pain (ICD-10 - G89.3)OARRS reviewed, consistent with Rx. MME 30-45 mg/day. Brigitte reports improvement in pain control with Gabapentin at bedtime and oxycodone PRN. Continue Oxycodone 10 mg q4-6h PRN without change Continue Gabapentin at HS [employer] Other 06-01-2023 Evaluation note* Encounter Date Diagnosis Assessment Notes Treatment Notes Treatment Clinical Notes Apr, Cancer associated pain (ICD-10 - G89.3) OARRS reviewed, consistent with Rx [employer] Other 05-10-2023 Progress note Author Fabiola Marinelli [facility] March 11, 2023 9:43amNote Date/TimeMay 2022 9:04[facility] at [address] [address] Hem/Onc Follow Up Note - OP Signed Patient: Mojgan Pérez MR#: [id number] : 1955 Acct:[id number] Age/Sex: 67 / F Type: REG RCR Copies to: MD Yinka Downey MD Ehsan Malek, MD Katherine M McGraw, VISUAL MERCHANDIS[employer]~ Subjective Date/Time of Service: Date of Service: 03/11/2023 Time of Service: 09:04 Chief Complaint: Patient is here today fora a 3 week follow up visit and go overbone marrow biopsy,pet scan, x-rays and labs HPI: 03/11/2023: Mojgan is here for follow-up of bone marrow aspiration and biopsy performed in interventional radiology on 02/24/2023 as well as follow-up F-18 PET/CT. She has continued right hip pain andsaw nurse practitioner Pearl Holder the day after her bone marrow biopsy. She started oxycodone 10 mg 4 times daily as needed with continued gabapentin 400 mg on an as-needed basis. She previously received radiation to the right hip in July-August 2021 over 15elapsed days--I am reluctant to repeat radiation to this area unless pain is refractory to oral medications. The PET/CT from 03/09/2023showed relatively patchy abnormal radiotracer accumulation in the skeletal structures that similarto prior exam consistent with her multiple myeloma but no new areas of radiotracer accumulation. The right hip uptake looks relatively stable from prior PET/CT in March 2022. The bone marrow aspirate andbiopsy showed low cellularity for age about 10% with 4% clonal plasma cells by immuno chemistry and0.7% of lambda mononuclear plasma cells on flow cytometry with a population of atypical CD10 positive B cells. She had presence of stainable iron stores 1+and no evidence of amyloid deposition. Her peripheral blood platelet count is now 28,000 and she does not have any active bleeding. She did haveextensive bruising after her bone marrow biopsy. She has not had any recent infections and received1 treatment with IVIG in early January. -- At this time I recommend holding active therapy for her myeloma given her cytopenias and plasma cells less than 10%. We will continue to follow CBC every2 weeks for her platelet count this month and if relatively stable continue CBC monthly. I will also send vitamin B12, folate, copper, ceruloplasmin, and iron panel to see if we can optimize her from a nutritional standpoint to improve herthrombocytopenia. This may also be due to her hepatic steatosis. Her next follow-up with me with myelomalabs to include quantitative immunoglobulins and kappa/lambda light chain analysis will be in 3 months or sooner as needed. Thisis a high complexity visit over 45 minutes for review of bone marrow biopsy and imaging results, discussion of continuing to hold further therapy (Kyprolis/Cytoxan last given December 2022), and plan nutritional labs with follow-up phone call with results. 02/18/2023: One month followup--still off active therapy with Kyprolis/Cytoxan past 2 1/2 months dueto persistent thrombocytopenia and initiation of IVIG for admission for urosepsis 01/28/2023. Despite off therapy, she has persistent low platelets 35,000 without bleeding. Uptrending kappa light chain to 60s. Notes recurrent right hip pain--I recommended repeating F-18 PET/CT to determine if bony progression with right hip/pelvis/femur film. Will also set up IR guided bone marrow biopsy--review results in 3 weeks and decide whether to resume active therapy. If lytic lesion at hip/acetabulum/femur concerning for potential fracture, will refer to orthopedics for possible prophylactic kenton. Mak contact from Dr. Benavidez for bispecific antibody therapy. Moderate complexity 35 minute followup. 01/09/2023: Here for followup after consult with Dr. Benavidez last week. Progress note is still pending, but we communicated by secure text regarding her evaluation. Myeloma labs are stable with mild increase of serum kappa from 40s to 60s range. Platelet count now to 68 and ANC 900 since holding Kyprol is/Cytoxan since 12/05/2022 for cytopenias. We decided to hold 2 more weeksthen resume Kyprolis at same dose 20mg/m2 and further decrease Cytoxan to 40% dose overall when we resume dose. Next line of therapy at progression may be CD3/BCMA myeloma bispecific antibody Teclistamab (needs to be hospitalized firstweek due to risk of cytokine release syndrome). Plan to resume likely in 2 weeks if adequate blood counts and no infection. F/u with myeloma labs (CBC, CMP, quant immunoglobulins and kappa/lambda light chains) in 2 months, sooner prn. Moderate complexity 30 minute followup. 12/26/2022: Mojgan continues to have nasal drainage sinus congestion and pain despite completing 2 weeks of amoxicillin and no air-fluid level on CT Sinuses 11/30/2022. We gave last dose of Kyprolis/Cytoxan (60% dose) on 12/05/2022. Peripheral neuropathy is stable, no diarrhea, no skin rashes. We reviewed her labs with ANC 900, platelets 37,000 and she notes easy bruising but no nasal/oral mucosal, GI or bleeding. I will again hold Kyprolis/Cytoxan another 2 weeks and give 2 weeks of Augmentin 875/125mg bid for her persistent sinus infection and Diflucan 100mg daily for vaginal candidiasis. Will formallyrefer back to Dr. Benavidez to see if she is a candidate for the CD3/BCMA myeloma bispecificantibody therapy which she would need to receive at [facility]. F/u with me in 2 weeks--if persistent cytopenias we may need torepeat her bone marrow biopsy (if now performed by Dr. Benavidez). She agrees with this plan over this 35 min moderate complexity followup visit. 11/26/2022: Mojgan is here for monthly followup on modified CYKLONE therapy. Notes increased frontal headaches over the past with with nasal congestion--sending for sinus CT and 2 week course of Augmentin bid. Platelet count recently dropped as low as 25-31,000 without bleeding (currently 40,000), WBC to 1300 with ANC 700. No current fever, chills or symptoms of infection. Prior dose reductions of Kyprolis to 20mg/m2 weekly with cyclophosphamide 240mg/m2 weekly). Echo with normal EF 55-60%. We will further dose reduce cyclophosphamide to 180mg/m2 (overall 40% dose reduction) and maintain Kyprolis at 20mg/m2. She has ongoing decline of lambda light chains over the past 6 months indicating response. I discussed her case with Dr. Piter Benavidez who noted therapy could be held if worsening cytopenias. For now continue monthly followup with myeloma labs (quant immunoglobulins and kappa/lambda light chains). Bleeding precautions and f/u sooner if new symptoms arise. Moderate complexity 35-minute visit for review of complex labs and adjustment of chemotherapy regimen. 10/29/2022: I asked Mojgan to return today due to cytopenias on labs and discussion of either dosereduction or changing therapy. She notes that over the last 2 weeks she has had cough, body aches, worsening fatigue, but no fever. She was diagnosed with a non-COVID viral syndrome. Her symptoms arestarting toget better but she has more significant cytopenias with absolute neutrophil count of only 400 with total white blood cell count 1000. In addition her platelet count is 31,000 she has not had any active bleeding issues. We were unable to contact her to tell her not to come in for chemo but I decided to see her today since she was last evaluated by nurse practitioner last 2 visits. Hermyeloma labs show relatively stable lambda light chains which appear to have responded since start of therapy in July. She is due for her echocardiogram and due to her cytopenias we will hold therapy today and plan 1 level dose reductions of both cyclophosphamide (from 300 to 240 mg/m2 IV weekly)with Kyprolis dose reduction (from 27 to 20mg/m2 IV weekly). She has been off therapy past 2 weeks due to cytopenias. If she is unable to resume therapy we may consider an alternate therapy such as Blenrep. She is otherwise in agreement with current plan of care. Moderate complexity 35-minute visit for review of complex labs and adjustment of chemotherapy regimen. 10/15/2022: Mojgan is here for follow-up for her multiple myeloma on modified CYKLONE therapy. Shecontinues to do well and remains active at home. She deniesshortness of breath, chest pain, nausea,vomiting, diarrhea or constipation. Sheis eating and drinking well. No fevers, chills, sweats, bleed ing or rash. She does note mild tongue soreness and on exam it appears she may be developing thrush, very mild currently on the tongue only. We will prescribe nystatin for this. Labs are reviewed andstable overall, ok for treatment. She will follow-upin 4wks with Dr. Marinelli with repeat labs and treatment. 09/17/2022: Mojgan is here for follow-up on modified CYKLONE therapy for her multiple myeloma. Shecontinues with fatigue, but otherwise no new complaints. She has no s/s of infection, no shortness of breath, chest pain, n/v/d or other concerns. In review of her labs, her WBC are 1.4, ANC 0.6 and platelets 43,000. Per Dr. Marinelli, given no s/s of infection and she otherwise feels well, she is okfor treatment. We discussed signs to report related to infection such as fever, chills, etc. and she will call with any concerns. We will follow-up in 3wks withrepeat labs. 08/20/2022: Mojgan is here for 3-week follow-up on modified CYKLONE therapy (cyclophosphamide 300 mg/m2 IV weekly, dexamethasone 20 mg IV weekly, and carfilzomib now 56 mg/m2 IV weekly). Baseline echocardiogram 07/18/2022 showed normal ejection fraction 60 to 65%. I discussed her case with Dr. Benavidez who advised that despite her significant thrombocytopenia she should be treated withfull dose cyclophosphamide/carfilzomib and may support with transfusions as needed. The patient's lowest platelet counts were in the 30,000's after her first week of therapy but now is up to 56,000. She has not hadany clinical bleeding. She also has persistent leukopenia 1900 today with absolute neutrophil countnow 1000. At this point as long as she does not have any significant symptoms of therapy or signs of infection or active bleeding we willcontinue her current dosing. She otherwise notes mild fatigue but no other toxicities. Prior skin rash on Pomalyst has resolved. She will follow-up in 3 weeks fortoxicity check with nurse practitioner and we will order her restagingmyeloma labs with serum protein electrophoresis with immunofixation, quantitative immunoglobulins, and kappa/lambda light chain ratio. She may return sooner if new issues arise. Moderate complexity follow-up over 30 minutes to address cytopenias on CYKLONE therapy. 07/10/2022: Mojgan is here for 2-month follow-up of myeloma labs. No changes in medical history and platelet count remains in the 40-50,000 range without bleeding. We held her Pomalyst (as well as daratumumab) this week due to absolute neutrophil count of 300 without any recent infections. She previously held it for 1 week due to neutropenia, took 1 tablet, then had to hold a second week due to neutropenia. We reviewed her kappa/lambda light chain ratio which continues to progress in the wrong direction (total lambda light chains now increased from 109 to 125.7 with ratio from 0.11 to 0.08). Her progressive cytopenias and worsening light chains likely reflects progression of myeloma. We could repeat her bone marrow biopsy but her most recent bone marrow biopsy on10/09/2021 showed hypercellular bone marrow (30%) with slight megakaryocytic and granulocytic hyperplasia and only 1.5% plasma cells (Lambda restricted by flow cytometry). This likely would not change her current management and I discussedher case with Dr. Benavidez of malignant hematology who recommended considering carfilzomib (Kyprolis) with cyclophosphamide. I will contact patient to coordinate baseline echocardiogram forKyprolis and likely she will require dosereductions for her underlying hepatic dysfunction and chronic cytopenias. AfterI reviewed dosing with Dr. Benavidez and pharmacy and review her echocardiogram, jayne coordinate follow-up for change in therapy and chemotherapy consent. For now we will continue daratumumab with altered dose of Pomalyst to 2 mg twice weekly ( and Mondays) until change in therapy. I will not likely send dose reduction of Pomalyst due to planned change in therapy. Moderate complexity 35 minutes for coordination of care. 05/07/2022: Improved rash on 2 mg of Pomalyst, now mild pruritus. Platelet count is 48,000 without bleeding issues. Continues weekly prednisone. Daratumumab isnow monthly since early April. Repeat kappa/lambda light chain ratio slightly higher (106 to 109) But the upward trend is starting to flatten out. F-18 Axumin PET/CT shows no new lesions, relatively stable from 1 year ago. For now given her stable symptoms and pronounced cytopenias, we will continue her current dosing daratumumab/Pomalyst/dexamethasone. Next follow-up with me in 2 months. She will return sooner for issues arise. Moderate complexity visit over 35 minutes. 04/09/2022: Mojgan continues every 2-week durvalumab with Pomalyst now 2 mg daily (dose reduced due to diffuse rash). She is now day 14 of the cycle and isnoted to have platelet count of 40,000 (no associated mucosal bleeding, bright red blood per rectum, or hematuria). No recurrent rash on this dose. She continues her weekly prednisone. I recommended changing her schedule of Pomalyst to 2 mg daily for days 1 through 14, off days 15 through 28 cycle and continuing daratumumab. Her most recent immunoglobulins have shown a steady trend upward for lambda light chain and decrease of kappa/lambda light chain ratio, however since she is now stabilizing her dosing of daratumumab/Pomalyst/dexamethasone I recommend continuing her current dosing for1 more cycle with repeat kappa/lambda light chain ratio in another month. In addition I will set her up for F-18 Axumin PET/CT to compare to PET/CT from 1 year ago (her skeletal survey showed no lesions 6 months ago). She denies any current bone pain.She will proceed with daratumumab dose as previously orderedtoday. 03/19/2022: Mojgan is here for follow-up after adverse cutaneous reaction to her first cycle of Pomalyst. She noted that after starting her first dose of Pomalyst 3 mg daily on 03/05/2022 that about 1 week later on 03/13/2022 she had a diffuse rash all over that was pruritic with increased erythema. She did not have nausea, vomiting, constipation, diarrhea, dyspnea, or any other adverse reactions. She did have a decline of platelet count to 41,000 this week which may be due to her Pomalyst. She called the pharmacy and was instructed to discontinue Pomalyst on 03/13/2022. Her rash has mostly resolved with no furtherpruritus but she still has a few macular lesions over the legs. She has been using Benadryl and topical cortisone cream with improvement of the rash. Otherwise her laboratories are stable. She does have an increased kappa/lambda light chain ratio from 03/05/2022 but this was her first day of therapy. I recommended resuming Pomalyst at next dose level 2 mg daily as soon as new medic ation arrives for 3 weeks on 1 week off. If she has recurrent rash she will again stop and we will consider further dose adjustment. Due to her thrombocytopenia we will hold her daratumumab today andconsume with first day of Pomalyst next week. She may follow-up in about 3 to 4 weeks, possibly with virologist covering at that time. Patient expressed understanding. 02/19/2022: Mojgan is here for follow-up--no new symptoms but her platelet countdropped to 48,000 last week and we are again holding her Revlimid. She has not had any bleeding or infection recently, but she has had uptrending lambda light chains and we discussed changing her therapy from lenalidomide to pomalidomide and continuing her daratumumab which is currently every other week. Her only other concern is constipation which is likely related to her pain medications. ANC was 800 today. --Today we reviewed chemotherapy counseling for lenalidomide in combination withdaratumumab/dexamethasone (stopping Revlimid). Common toxicities were reviewed to include allergic reactions, myelosuppression, thrombosis, fatigue, nausea, vomiting, constipation, diarrhea, mouth sores, and risk of secondary malignancies. Other toxicities may include pneumonitis, neurologic, hepatic andrenal toxicities. The patient signed informed consent and will follow-up as directed. Planning a trip to [place] on March 06, therefore we will hold Revlimid until arrival of her pomalidomide, then have oral chemotherapy visit. We are starting pomalidomide at 3 mg daily days 1 through 21 every 28 days due to baseline liver dysfunction. Follow-up cycle 1 week 2. We will recheck her baseline myeloma labs on start day of pomalidomide with daratumumab. 01/22/2022: Mogjan has no new complaints. She was seen by Dr. Benavidez at for evaluation for transplant and CAR-T options but given her profound thrombocytopenia, neither of these options are felt tuyet optimal for her. She has had gradual worsening of her lambda light chains without any change of r enalfunction or hypercalcemia. Her chronic thrombocytopenia has remained in the 40-50,000 range which is lower than her prior baseline. I reviewed her options with Dr. Benavidez and it is difficult to assess best options due to her chronic thrombocytopenia but standard of care at this point would be tocontinue her daratumumab and transition from the lenalidomide to pomalidomide. We will follow closely with weekly CBCs to determine if thrombocytopenia worsens on thisregimen. I will defer changing her regimen for 1 month since she is starting a new cycle of lenalidomide and has had slow progression of her lambda light chains. She will return in 1 month and will discuss pomalidomide and signed inf ormed consent. Patient is in agreement with this plan. 12/18/2021: Mojgan is here for 3-month follow-up. She has not had any significant changes in medical history other than testing positive for coronavirus infection in early November 2021. She has not been immunized for coronavirus. She notes persistent fatigue but no bone pain. No other recent infections or bleeding episodes. She recently changed from weekly to now every 2 weeks daratumumab 16 mg/kg and remains on low-dose lenalidomide 5 mg daily for2 weeks on 1 week off due to prior thrombocytopenia worsening. October 2021 skeletal survey showed no osteolytic lesions suggestive of myeloma. Initially she had improvement of her platelets to 70-100,000 but today platelets are down to 54,000. She also had some improvement of leukopenia but this is again down to 2800 with ANC 1300 today. Urinerandom M spike is not observed, but she has had progressive increase of her lambda light chains from 30 in December 2020 to 60.2 in October 2021. [place] lambda ratio has also started to decline to 0.21 in October 2021. For now I'm continuing her daratumumab with Revlimid at current dosing, but I contacted Dr. Benavidez at [facility] for CAR-T celleligibility. If he has recommendations to change her therapy, I will let her know. Otherwise I will have her follow-up with me in 1 month (she will have repeat myeloma labs 1 week prior to visit). 09/20/2021: After telephone consultation with Dr. Benavidez at , we resumed repeat loading doses of weekly daratumumab 16mg/kg and changed to low dose lenalidomide 5mg daily. She has had 2 courses of antibiotics for sinus infection over the past month and was noted to have neutropenia with ANC 900, platelets 44,000 week 2 of Revlimid, therefore this was held for one week and resumed Thursday after ANC returned to 1000. Platelet counts have persisted at 40-50,000 range without active bleeding. Otherwise tolerating therapy well. Still improved hip pain and ambulation after recent course of palliative radiation therapy. For now we will continue Daratumumab with Revlimid and Dexamethasone as ordered with weekly CBC. Gradually increasing lambda light chains--pending evaluation at for CAR-T celltherapy eligibility (has not yetbeen contacted for appointment). 4 week f/u with me with CBC, CMP, and myeloma labs (follow quant immunoglobulins and [place]/Lambda light chain ratio with skeletal survey in 2 weeks so results available for appointment). 08/30/2021: Mojgan is here for 2-week follow-up for completion of her palliative radiation therapywith significant improvement of pain in her right hip and pelvis. We sent her for echocardiogram performed 08/23/2021 at [facility] [place] as baseline for possible Kyprolis therapy. This returned with ejection fraction 60% which is normal with grade 1 left ventricular diastolic dysfunction and 1+ tricuspid valve regurgitation and trace to 1+ aortic valve regurgitation.Otherwise unremarkable. I discussed her case with Dr. Benavidez of malignant hematology at [facility]. He advised against Kyprolis therapy given her underlying liver dysfunction and recommended repeating loading doses of daratumumab weekly as well as low-dose lenalidomide which we will start at 5 mg daily since she has chronic thrombocytopenia. We will send for CAR-T therapy as a possible therapeutic option. The patient agreed with changing daratumumab to weekly and we will haveher sign consent next week for change to low-dose lenalidomide therapy. Next follow-up with me will be in about 2 weeks for week 2 lenalidomide with daratumumab. 08/16/2021: One month followup, she recently completed palliative radiation therapy to right hip and pelvis. Platelet count still in 50,000 range with increased bruising but no bleeding. Still has some pain in right hip but slowlyimproving after radiation therapy. Slowly worsening lambda light chain --she is scheduled for ECHO next week. We discussed possibly changing therapy from Daratumumab, Velcade, Dexamethasone to Kyprolis, low dose lenalidomide, dexamethasone if adequate cardiac function. I will discuss this with Dr. Benavidez for dosing and determine if CAR-T therapy is another possible option (although we may be limited due to chronic thrombocytopenia and liver disease). Followup 2-3 weeks to review results and possible consent for change in therapy. 07/17/2021: 2-month follow-up on multiple myeloma. She reports that Thursday she developed severe painin the right leg that started proximal to the knee creating it to the hip. She had increased pain with weightbearing on the right and has been using a walker at home secondary to this. She did not feel a pop or shift in ambulation, but has been using her Percocet for pain control at home. In reviewing her laboratories platelet count remains in the 52,000 range and she is otherwisPe tolerating daratumumab well. I recommended sending for right hip, femur, and knee plain film imaging that did not show any fracture. She does have a gradually rising lambda light chain but no other significant changes in her labs. I reviewed her case with Dr. Cheng of orthopedic surgery who also reviewed her prior PET/CT showing uptake in this area. We will obtain a right hip MRI, keep her completely nonweightbearing on the right leg with walker for transfers and she has an urgent orthopedic follow-up following her MRI. I will follow-up with her in 1 month to review management and we will determine if she requires prophylactic kenton for stability of the hip based on herMRI. 05/24/2021: Here to followup 05/03/2021 bone marrow biopsy--noted to have decreased cellularity 25%, flow cytometry with 0.2% plasma cells and a 1.5% monoclonal B- cell population. FISH showed 13q and 1qabnormalities but normal cytogenetics. No myelodysplasia seen. I reassured her that recent thrombocytopenia is more likely related to splenic sequestration from liver disease and not worsening myeloma. For now continue current regimen. Will alsorecheck B12, folate, and iron profile with next labs--followup in 2 months with myeloma labs, sooner prn. 04/24/2021: 1 month followup to review PET/CT. Over the past 2 days, she notes episodes of sharp left sided neck pain over sternocleidomastoid muscle and mastoid area. No radiculopathy down left upperextremity. No new side effects of Daratumumab. F18 PET/CT shows largely unchanged diffuse uptake through multiple bony sites in axial and articular skeleton. Lambda light chains risingover past 2 month and decline of platelet count to 57,000 without bleeding. MRIof thoracic spine did not show significant thoracic canal stenosis. Due to worsening neck pain with extensive uptake on F18 PET/CT--we will send for cervical MRI. Palliative medicine has increased Percocet to tid. We will repeat bone marrow biopsy due to rising lambda light chain and falling platelet count to determine if progression of myeloma noted. This will be scheduled in the next 1-2 weeks. 03/28/2021: 2 month followup for multiple myeloma. More recently notes neck andleft shoulder pain. Fatigue and constipation stable. Labs show stable anemia and thrombocytopenia. Serum M-spike now asymmetric gamma (no quantifiable spike). Slowly improving IgG to near normal. [place]/lambda light chain ratio normal with mildly increased lambda light chains. MRI of thoracic spine for evaluation of increasing left shoulder pain. For now we will continue current dosing of Daratumumab and recheck F18 PET/CT for response in late April 2021. 01/21/2021: Mojgan is accompanied by her daughter for 2 month followup--now Daratumumab maintenance. She notes persistent fatigue and recently added as needed laxatives to stool softener for management of constipation. Persistent left hand pain--correlates to an area of bone uptake on PET/CT. Overall F18 PET/CT appears stable with no new areas if FDG avidity (still extensive bone FDGuptake). We reviewed prior plain xrays of left hand from November--she agrees toevaluation by orthopedic surgery (determine if biopsy or steroid injections). M-spike and kappa/lambda light chains pending. CBC (platelets 60-70,000); CMP stable. Will followup in 2 months with exam and labs. 11/26/2020: Mojgan is accompanied by her daughter for 2 month followup--now Daratumumab maintenance. Stable leukopenia/low platelet 70,000. Notes 3 days of hematuria and mild dysuria. Sending UA and possible culture. Otherwise no new bone pain. Blood sugars stable. M-spike and kappa/lambda light chain ratiostable. Next f/u 2 months after one year f/u PET/CT to determine response to therapy. 09/24/2020: Mojgan presents (accompanied by her daughter) for cycle 8, week 2 followup mg/kg IV weekly, Dexamethasone 20mg weekly, and Velcade 0.7 mg/m? now sq once weekly for every 3-week cycle (21 days). She notes neuropathy symptoms are stable. Tolerating therapy well without fatigue. No bleeding and thrombocytopenia stable in 60-70,0000 range. On 10/02 she will be due for maintenance therapy with Daratumumab alone once per month. I will f/u with her in 2 months with myeloma labs, sooner as needed. Velcade and Dexamethasone will be stopped after 8 cycles. 08/13/2020: Mojgan is here for cycle 6, week 2 (day 14) daratumumab 16 mg/kg weekly, Velcade 0.7 mg/m? now sq once weekly for every 3-week cycle (21 days), and dexamethasone 20 mg weekly. No new symptoms--improving thrombocytopenia to 79,000 and improved leukopenia. 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 Still has improvement of M-spike, IgA normal and decreased lambda light chain and K/L ratio. We discussed that week 25 in Oct she will change to monthly daratumumab with weekly Velcade (1mg/m2) and Dexamethasone. Continue to follow every 6-8 weeks until maintenance schedule. 06/18/2020: Mojgan is here for cycle 3 week 3 (day 21) daratumumab 16 mg/kg weekly, Velcade 0.7 mg/m? now sq once weekly for every 5-week cycle (35 days), and dexamethasone 20 mg weekly. Tolerating well with stable leukopenia and thrombocytopenia. Mild increased symptoms of hand and foot neuropathy, but no limitation in activity. Now following with diabetes management clinic with variable glucosecontrol. We reviewed lower IgA (now M-spike IgG kappa after Daratumumab--previously IgA lambda). Lambda light chain has decreased from 516 to 41.3 to now 18.5 with normalization of K/L ratio. Continue followup myeloma labs in 6 weeks, visit in 8 weeks. 05/21/2020: Mojgan is here for cycle 2 (week 7 overall) daratumumab 16 mg/kg weekly, Velcade 0.7 mg/m? now sq once weekly for every 5-week cycle (35 days), and dexamethasone 20 mg weekly. Tolerating well with stable leukopenia and thrombocytopenia. No significant neuropathy. Noted to have improvement in lambda light chains. No further daratumumab infusion reactions. No infections,stable constipation, pain control improved. No other complaints. Continue monthly f/u with myeloma labs. --Diabetes management--added insulin on dexamethasone days. Hyperglycemia improving. 01/18/2020 (phone followup)--The patient's son was available by phone and her daughter was contactedin a separate phone call as patient presented unaccompanied due to COVID-19 precautions in our clinic during the current epidemic. Bone marrow biopsy results were reviewed as follows from procedure pe rformed 01/26/2020: --Bone marrow biopsy was suboptimal for evaluation. --Increased lambda light chain restricted monoclonal plasma cells (1.9% by flow cytometry, approximately 6% and aspirate count, but 50% by immunohistochemical stains [id number]). Sideroblastic iron present, negative for ring sideroblasts. Peripheral blood smear with mild red blood cell anisocytosis and polychromasia, leukopenia with absolute neutropenia (1000) and thrombocytopenia (54,000) consistent with prior baseline. Note: I discussed the results with Dr. Crook 01/26/2020. Preliminary findings were also discussed with Dr. Cummings 01/27/2020. Morphologic findings, immunohistochemical stains, flow cytometry, and ancillary studies may under represent the extent and severity of disease. The results of FISH myeloma panelwith prognostic markers and cytogenetic analysis are pending. --Given the patient's hip pain and presence of lytic lesions, she meets clinicalcriteria for activemyeloma. Given her hip pain and lytic lesions in weightbearing areas she was offered radiation therapy. She had a limited courseof hypofractionated palliative therapy to bilateral proximal femurs [address] Ahn. We discussed that given the COVID-19 epidemic and absence of othersignificant changes other than bony lesions (normal renal function, normal calcium, stable cytopenias), I would defer active therapy for myeloma for 4 to 6 weeks. Since she has significant history ofliver disease I will discuss her case with Dr. Piter Benavidez at [facility] malignant hematology for optimal regimen. The patient is not a transplant candidate given her nonalcoholic steatohepatitis and chronic thrombocytopenia but may be a candidate for either doublet therapy (Revlimid/dexamethasone) or triplet therapy with either Velcade/Revlimid/dexamethasone or daratumumab/Revlimid/dexamethasone. --02/03/2020: Mojgan presented unaccompanied for follow-up of bone marrow aspiration and biopsy performed by Dr. 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 The patient had been noting increased left hip pain over the past several months andplain films of the pelvis and bilateral femurs did show subtle lucencies in the bilateral proximal femurs corresponding to PET/CT findings but no other additional sclerotic lesions identified. No pathologic fractures were seen. --03/05/2020: Mojgan notes improvement of bilateral hip pain since radiation. No other changes in medical history in the past month--no infections, normal renal function, no hypercalcemia. Stable platelet counts without bleeding. Shewas given written literature regarding Dexamethasone, Velcade (thatwould be dose reduced to 0.7mg/m2 twice weekly), weekly Daratumumab and Revlimid, but I will defer decision of which regimen to use until discussion in malignant hematology tumor board. Also referring for infusion port placement prior to initiating therapy. Sign informed consent prior to initiating therapy. --Discussed with Dr. Benavidez who favors Daratumumab combination--will request prior liver biopsy and records from [facility] liver clinic. The patient and her son (by telephone) expressed understanding and will follow- up as directed in 2 weeks for consent and likely start of therapy. --04/02/2020: Mojgan presents after infusion port placement at [facility] by interventional radiology due to platelet count 40,000--she had increased bruising at site post procedure, but this has completely resolved. Her hip painis well controlled since completion of palliative radiation and no newareas of pain. She has previously reviewed information regarding Daratumumab (first dosesplit 8mg/kg IV D1,D2, then if well tolerated 16mg/kg IV weekly), Velcade at about 50% dose (for liver dysfunction) 0.7mg/m2 D1,D4,D8, D11, and [id number] IV weekly--repeat for every 3 week cycles 1st 3 cycles. She will take chemo class and likely start therapy within 2 weeks with toxicity visit in 3 weeks. Today we reviewed chemotherapy counseling for Daratumumab, Velcade, and Dexamethasone. Common toxicities were reviewed to include infusion reaction including rash/dyspnea/wheezing, myelosuppression, fatigue, nausea, vomiting, constipation, diarrhea, mouth sores, and alopecia. Other toxicities may in cludepneumonitis, neurologic, thromboembolism, hyperglycemia, hepatic and renal toxicities. The patient signed informed consent and will follow-up as directed. --04/19/2020: Mojgan is here for cycle 1 week 2 daratumumab 16 mg/kg weekly, Velcade 0.7 mg/m? twice weekly for first 2 weeks of every 3-week cycle, and dexamethasone 20 mg weekly. She did have an infusion reaction with first daratumumab with dyspnea and flushing but this improved after first dose and shehas not had recurrent infusion reactions. We have continued Velcade despite platelet counts in the 40,000 range without bleeding as we know that her baseline platelet counts remain in this range and she has not had any significant change from her baseline. Dexamethasone has caused hyperglycemia with blood sugars up to 400 and we are referring to diabetes management clinic. Otherwise she denies any significant nausea, emesis, fever, chills, night sweats, constipation, diarrhea, rash, mouthsores, or alopecia. She has not hadany change of baseline neuropathy. Liver function tests remain stable. She notes that her hip pain is well controlled since prior palliative radiation and she saw radiation oncology earlier this week with no new recommendations. I will send her myeloma labs including serum and urine protein electrophoresis, quantitative immunoglobulins, and serum kappa/lambda light chains in 2 weeks andfollow-up with her in 3 weeks. She may be seen sooner if new issues arise. This is a 67-year-old lady on chronic disability has a history of arthritis, diabetes mellitus, hypertension, COPD, GERD, and fibromyalgia who was [facility] [place] for chronic mild to moderate thrombocytopenia. She states that she was followed with Dr. Kumari prior to his senior care and was told that she had an elevated protein level as well as thrombocytopenia but never had clinical bleeding. She is 4 para4 without complicationsand was never told that she was thrombocytopenic while . She is had multiple prior surgicalprocedures without any clinical bleeding. She had been recommended for a pain procedure with Dr. Wilson but he declined to do the procedure because her platelet count was less than 100,000. For this reason she received 2 platelet transfusions, with little improvement of her platelet count and her second transfusion resulted in throat tightening due to allergy to platelets . She has never beentreated with steroids and has never been told that she has immune thrombocytopenia. She has mild leukopenia with relative neutropenia, absolute neutrophil count of 400-800 and mild lymphocytosis. Hemoglobin is normal. She has not had any bright red blood per rectum or epistaxis. She has no history ofbleeding within the family however does have a mother and sister diagnosed with colon cancer, a brother diagnosed with lung cancer, and another sister diagnosedwith breast cancer. She had prior pain in the right hand mainly at the first MCP joint with some associated swelling and right foot pain and was evaluated by podiatry. She was told that her blood tests were negative forgout. She had screening with MALLORY, CCP, and rheumatoid factor all of which were negative. She says that she previously saw Dr. Petersen for cirrhosis but did not know of any specific therapy. We reviewed these findings from her liver ultrasound ordered by Dr. Benavidez Summer 2016. Initial consultation with me March 16, 2017. --The patient has been followed by me for some time for diagnosis of smoldering myeloma with a prior bone marrow biopsy May 2017 showing 15% plasma cells but the patient remained asymptomatic without bone pain or other CRAB criteria for therapy. She is also noted to have an ascending aortic aneurysm and has chronicliver disease with cirrhosis secondary to nonalcoholic steatohepatitis. She haschronic thrombocytopenia without bleeding ranging from 50-100,000 this is felt to be due to sequestration from her nonalcoholic steatohepatitis. She was previously on a liver transplant list but was recently notified that she is no longer a candidate for liver transplant. She has had chronic pain from f ibromyalgia but noted increasing bilateral hip and upper thigh pain over the last 6 months. She also is followed for EGD/colonoscopy with last documented procedure 09/21/2018: 1. Normal EGD, 2. Mild sigmoid diverticulosis, 3. Internal hemorrhoids, grade 2, 4. Anal fissure with active bleeding cauterized by bipolar cautery Bone osseous survey in June 2019 showed osteopenia and degenerative changes but no lytic or blastic lesion. Patient had an F-18 PET scan 01/02/2020 which showed multiple areas of involvementof bones with increased SUV activity. She was contacted with these results by phone and I recommended bone marrow aspirate and biopsy for assessment and analysis. Her prior labs were reviewed. Her SPEP does not show anymonoclonal gammopathy. On VAHID there appears to be a trace of monoclonal gammopathy. Free light chain ratio is less than 100. There is no evidence of renal sufficiency. Patient is not anemic. She doeshave some abnormal areas on bone scan. - Summary of Therapies Summary of Therapies: 1. 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 2. She underwent a single dose of palliative radiation therapy to bilateral hips, receiving 800 cGyto right and left hip in 1 fraction in separate vaz (with a single isocenter). The treatments were given with AP/PA vaz [id number] MV photons and MLC blocks. 3. Deferred active therapy for myeloma 2 months given COVID-19 epidemic with increased risk of myelosuppression and viral transmission of contacts. --Follow-up 03/05/2020 I discussed her case with Dr. Piter Benavidez at malignant hematology. --Given her significant hepatic dysfunction, I presented her case at malignant hematology tumor board to discuss optimal therapy. 4. Cycle 1 day 1 04/10/2020: Dose reduced Velcade 0.7 mg/m? twice weekly (day 1,day 4, day 8, day 11)every 3 weeks with dexamethasone 20 mg weekly and daratumumab 16 mg/kg weekly of each 21-day cycle.After first week, Velcade decreased to 0.7mg sq weekly due to thrombocytopenia. --We will need to watch liver function, platelet count, and neuropathy closely on Velcade. 5. Cycle 9 day 1 10/02/2020: Daratumumab 16mg/kg once monthly maintenance therapy until progression. 6. 07/31/2021: Palliative radiation therapy to right supra chondral/soft tissuearea of hip which is PET positive. She received a dose of 3000 cGy in 10 fractions from 07/31/2021 to 08/15/2021 over 15 elapsed days 7. 08/30/2021: Right hip pain improved after radiation. Due to disease progression with persistent cytopenias, changed to repeat loading doses of daratumumab 16 mg/kg weekly for cycles 1 through 3 with Revlimid 5 mg daily for 3 weeks on 1 week off. Held Revlimid second week due to neutropenia with sinus infection, resumed 3 days ago (09/17/2021). Referred for CAR-T therapy evaluation. 8. 12/18/2021: Daratumumab is now 16 mg/kg every 2 weeks with Revlimid 5 mg daily for 2 weeks on 2 weeks off due to neutropenia and thrombocytopenia. Stillpending evaluation for CAR-T therapy. 9. 01/22/2022: Patient is not deemed a candidate for stem cell transplant or CAR- T therapy at this time. Discussed changing from current Revlimid to pomalidomide with continued daratumumab 16 mg/kg every 2 weeks. Plan change in therapy in 1 month. 10. 02/19/2022: Continue daratumumab 16 mg/kg IV every 2 weeks and changed to pomalidomide now 3 mg daily days 1 through 21 of each 28-day cycle (lower dose due to baseline liver dysfunction) -- 03/19/2022: Patient was noted to tolerate Pomalyst only 1 week (03/05- 03/13/2022)due to grade 3 rash. This resolved after stopping medication 1 week later. 1 dose level reduction Pomalyst to 2 mg daily days 1 through 21 of each 28-day cycle. Also holding daratumumab daily for platelet count of 41,000 and will resume at full dose with first dose of Pomalyst. -- 04/09/2022: Platelet 40,000 without bleeding. Will continue monthly Daratumumab with change of Pomalyst to 2mg D1-14 each 28 day cycle (off 2 weeks due to low platelets). Rising lambda light chains,unable to tolerate Pomalyst due to cytopenias, stopped mid 07/2022. 11. 07/18/2022: carfilzomib (dose 20mg/m2 day one then 27mg/m2 D8, D15) with cyclophosphamide 300mg IV weekly and weekly dexamethasone. Baseline echocardiogram EF 60-65%. We will follow closely for her chronic cytopenias andliver dysfunction. -- 10/29/2022: Regimen on hold for past 2 weeks due to cytopenias. Today with ANC 400, holding another week and will reduce dose of carfilzomib to 20mg/m2 IV weekly with cyclophosphamide 300-->240mg/m2 IV weekly, continue weekly dexamethasone. -- 11/26/2022: ANC 700, Platelets 40,000. Continue carfilzomib 20mg/m2 IV weekly with cyclophosphamide 300-->240-->180mg/m2 IV weekly, continue weekly dexamethasone. -- Carfilzomib/cyclophosphamide on hold since 12/04/2022 due to cytopenias, pending evaluation by for bispecific antibody therapy. --01/09/2023: Improving cytopenias ANC 900, platelets 68,000. --02/18/2023: Still on hold since 12/04/2022 (if resumed will give carfilzomib 20mg/m2 IV weekly with cyclophosphamide 300-->120mg/m2 IV weekly. 02/24/2023 bone marrow with 4% plasma cells, hypocellular 10%. Continue to hold active therapy for myeloma. ROS Details: All systems reviewed & no additional complaints except as documented Subjective/ROS - Narrative: No change in review of systems from last visit 02/18/2023. Constitutional: No Chills, No Diaphoresis, Stable Fatigue, No Fever, No Malaise, No Night Sweats, No Weakness, No Weight Gain, No Weight Loss Gastrointestinal: No Abdominal Pain, No Black Stool, No Bloating, No Bloody Stool, positive for constipation, No Diarrhea, No Dysphagia, No Hematemesis, No Nausea, No Postprandial Pain, No Rectal Bleeding, No Rectal Pain, No Vomiting, Other (chronic gastroesophageal reflux stable) --No jaundice or ascites but patient has longstanding nonalcoholic steatohepatitis with cirrhosis, previously followed by [facility] gastroenterology. Cardiovascular: No Chest Pain, No Edema, No Palpitations, No Syncope Genitourinary: No Discharge, No Dysuria, No Flank Pain, Frequency (chronic andunchanged), Resolved Hematuria, No Incontinence, No Nocturia, No Urgency, No Urinary Retention Musculoskeletal: + left shoulder and neck pain as per HPI (no thoracic cord compression). Recent worsening right hip/thigh pain; positive for intermittent lumbar back pain, No Chest Wall Tenderness, Improvement of prior Joint Pain, Muscle Stiffness, Myalgia (history of fibromyalgia), --unremarkable skeletal survey June 2019. 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 12/2020: F-18 PET/CT stable. 04/2021 F-18 PET/CT stable. Right hip pain mildly improved after palliative radiation. 04/30/2022 repeat Axumin F-18 PET/CT stablefrom 1 year ago. HEENT: + frontal headache and sinus tenderness/congestion--improved. No Blurred Vision, No Discharge, No Ear Pain, No Epistaxis, No Sore Throat --patient was seen in emergency department November 2019 with persistent epistaxis. She was treated with nasal clip and packing and was advised to continue Afrin. No recurrent bleeding. 2 courses of antibiotics in Aug-Sep 2021 forrecurrent sinusitis. 11/30/2022: Polyp only on CT (no air-fluid level). 12/26/22: Augmentin 2 week course and hold chemo. Respiratory: No Cough, No Hemoptysis, mild Shortness of Breath (chronic and unchanged due to COPD),No Sputum, No Wheezing--shortness of breath with daratumumab reaction dose 1 04/10/2020 (given a split dose over 2 days). No recurrent reaction since first dose. Neurological: No Dizziness, Stable Numbness/Tingling (reports long-standing bilateral foot numbness--unchanged since starting low-dose Velcade 04/10/2020), NoPre-existing Deficit (no history of stroke or seizure), intermittent headache Hematologic/Lymphatic: No significant bleeding thrombocytopenia from sequestration/myeloma disease,Bruises Easily, No Enlarged Lymph Nodes, Other (reports allergy to prior platelet transfusion) Endocrine: Excessive Sweating (hot flashes, postmenopausal) Flushing, No Intolerance to Cold, Intolerance to Heat Psychiatric: No Depressed Mood, No Insomnia Integumentary: No Jaundice, No Lesions, positive for diffuse rash on Pomalyst 3mg daily as per HPI.1 level dose reduction to 2 mg daily with only mild rash/pruritus. Due to cytopenias Pomalyst is reduced to 2 mg twice weekly on Mondays and . Stopped Pomalyst in Jul 2022--no recurrent rash. Allergic/Immunology: Previous pruritus with Pomalyst rash resolved off Pomalyst. PMFSH - History Attestation statement: The following information was validated with the patient. Source: Old Records Reviewed - Medical History Medical History: Medical History (Last Reviewed 03/11/23 @ 09:32 by Fabiola Marinelli MD) Aortic aneurysm COPD (chronic obstructive pulmonary disease) Diabetes Fibromyalgia GERD (gastroesophageal reflux disease) Hypertension Iron deficiency Multiple myeloma Neutropenia Smoldering multiple myeloma (SMM) Smoldering myeloma Temporary low platelet count - Surgical History Surgical History: Surgical History (Last Reviewed 03/11/23 @ 09:32 by Fabiola Marinelli MD) H/O: hysterectomy History of appendectomy History of cholecystectomy - Family History Family History: Family History (Last Reviewed 03/11/23 @ 09:32 by Fabiola Marinelli MD) Other COPD (chronic obstructive pulmonary disease) - Social History Smoking Status: Former smoker Tobacco Type: cigarettes Substance Use Type: None Social History Comments: Lives with son a grandaughter Home Medications & Allergies Allergies diclofenac [From Voltaren] Allergy (Verified 03/11/23 08:56) Hives doxycycline [From Vibramycin] Allergy (Verified 03/11/23 08:56) Hives erythromycin base [From E-Mycin] Allergy (Verified 03/11/23 08:56) Hives latex Allergy (Verified 03/11/23 08:56) Unknown Reaction moxifloxacin [From Avelox] Allergy (Verified 03/11/23 08:56) Hives Quinolones Allergy (Verified 03/11/23 08:56) Unknown Reaction tetracycline Allergy (Verified 03/11/23 08:56) Unknown Reaction Home Medications carvedilol 12.5 mg tablet 12.5 mg PO BID 11/20/17 [History Confirmed 03/11/23] duloxetine 60 mg capsule,delayed release 60 mg PO DAILY 11/20/17 [History Confirmed 03/11/23] insulin detemir U-100 100 unit/mL (3 mL) subcutaneous pen 22 units subcut DAILY PRN Hyperglycemia 11/20/17 [History Confirmed 03/11/23] oxycodone 10 mg tablet 10 mg PO BID PRN Pain 11/20/17 [History Confirmed 03/11/23] albuterol sulfate 90 mcg/actuation aerosol inhaler 2 puff inhalation Q6H PRN Shortness Of Breath 11/24/17 [History Confirmed 03/11/23] omeprazole magnesium 20 mg tablet,delayed release (Prilosec OTC) 40 mg PO DAILY 11/24/17 [History Confirmed 03/11/23] metformin 500 mg tablet,extended release 24 hr 500 mg PO BID 03/05/20 [History Confirmed 03/11/23] semaglutide 0.25 mg or 0.5 mg (2 mg/1.5 mL) subcutaneous pen injector (Ozempic) 1 mg subcut QWEEK 09/24/20 [History Confirmed 03/11/23] vitamin B12 0.5 mg-folic acid 1 mg tablet 1 tab PO DAILY 03/28/21 [History Confirmed 03/11/23] lactulose 20 gram/30 mL oral solution 20 g (30 mL) PO BID PRN Constipation #600 mL 04/09/22 [Rx Confirmed 03/11/23] acyclovir 400 mg tablet 400 mg PO BID 90 days #180 tabs 09/24/22 [Rx Confirmed 03/11/23] potassium chloride 10 mEq capsule,extended release 10 meq PO DAILY #30 caps 11/18/22 [Rx Confirmed 03/11/23] loratadine 10 mg tablet (Claritin) 10 mg PO DAILY 12/26/22 [History Confirmed 03/11/23] atorvastatin 80 mg tablet 80 mg PO DAILY 01/28/23 [History Confirmed 03/11/23] cyanocobalamin (vitamin B-12) 1,000 mcg sublingual tablet 1,000 mcg sublingual DAILY 01/28/23 [History Confirmed 03/11/23] dexamethasone 4 mg tablet 20 mg PO DIRECTED PRN Systemic Signs And Symptoms 01/28/23 [History Confirmed 03/11/23] fluticasone propionate 50 mcg/actuation nasal spray,suspension 1 spray intranasal DAILY PRN AllergySymptoms 01/28/23 [History Confirmed 03/11/23] insulin aspart U-100 100 unit/mL (3 mL) subcutaneous pen (Novolog FlexPen U-100 Insulin aspart) 25 unit subcut DAILY PRN Hyperglycemia 01/28/23 [History Confirmed 03/11/23] lisinopril 5 mg tablet 5 mg PO DAILY 01/28/23 [History Confirmed 03/11/23] ondansetron 8 mg disintegrating tablet 8 mg PO TID PRN Nausea #30 tabs 02/10/23 [Rx Confirmed 03/11/23] gabapentin 400 mg capsule 400 mg PO TID pain 02/24/23 [History Confirmed 03/11/23] Objective - Height/Weight Height/Weight: Height 5 ft 2.99 in Weight 82.554 kg BSA for Today's Weight 1.93 - Vital Signs Vital Signs: 03/11/23 08:56 Temperature 97.0 F L Pulse Rate [Left Brachial] 80 Respiratory Rate 16 Blood Pressure [Right Arm] 130/84 02 Sat by Pulse Oximetry 98 Oxygen Delivery Method Room Air - Pain Generalized Pain Intensity: 3 Bilateral Hip Pain Intensity: 5 Left Hip Pain Intensity: 4 Lower Back Pain Intensity: 7 Left Neck Pain Intensity: 4 Back Pain Intensity: 0 Right Thigh Pain Intensity: 3 Bilateral Leg Pain Intensity: 5 Generalized Head Pain Intensity: 4 Bilateral Shoulder Pain Intensity: 6 Left index finger Pain Intensity: 4 - Distress Screening Distress Screen Results: RN Distress Screening Start: 02/07/20 10:17 Freq: Status: Complete Protocol: Document 05/01/20 09:33 DB (Rec: 05/01/20 09:33 DB [id number]) Distress Screening Distress Score: 0 No worry/distress Distress Screening Total 0 RN Distress Screening Start: 07/26/21 12:37 Freq: Status: Active Protocol: Document 02/18/23 10:19 LB (Rec: 02/18/23 10:20 LB [id number]) Distress Screening Distress Score: 8 Physical Concerns Pain,Trouble Sleeping Emotional Concerns How my body looks,Feeling uncertain about the future Comments defer to patient navigator Distress Screening Total 8 Distress score of 4 or more discussed No with patient? Physical Exam Narrative: Patient is alert and oriented x3. HEAD / FACE: Normocephalic. No tenderness to palpation over scalp, no sinus tenderness to palpation. EYES: Pupils are equal and reactive to light. Conjunctivae and lids are benign in appearance. Ocular movement intact. EARS: Hearing grossly intact. NEUROLOGICAL: Alert and oriented. Cranial nerves intact. No gross motor or sensory deficits, patient ambulates unassisted. PSYCHIATRIC: No anxiety or evidence of depression. Full exam deferred, see last exam from 02/18/2023. NOSE / MOUTH / THROAT: No frontal/maxillary sinus tenderness. No oral thrush oraphthous ulcerations. NECK / THYROID: No cervical adenopathy on exam. Thyroid is symmetrical, withoutthyromegaly, masses or palpable nodules. RESPIRATORY: Normal inspection. Lungs clear to auscultation and percussion. No wheezing, rales, rhonchi or rubs. Normal effort. CARDIOVASCULAR: Regular rate and rhythm. No murmurs, gallops, or rubs. ABDOMEN: Bowel sounds normoactive. Soft, nontender and non-distended. No hepatosplenomegaly. No masses. INTEGUMENTARY: The skin is unremarkable. No suspicious lesions or rash. No bruising or petechiae noted. MUSCULOSKELETAL: Normal musculature, normal ROM upper and lower extremities, no crepitus. EXTREMITIES: No leg edema. No cyanosis or clubbing. - ECOG Performance Status ECOG Score: 2 Results - Labs Labs: Diagram of Most Recent CBC and CMP 03/09/23 12:25 03/09/23 12:25 Labs - Last 7 Days 03/09/23 12:25: IgG 596, IgA 26 L, IgM 27, Free [place] LC, Quant 9.6, Free LambdaLC, Quant 128.9 H, Free [place]/Lambda Ratio 0.07 L 03/09/23 12:25: PHA Creatinine Clear 69.82, Sodium 142, Potassium 3.7, Chloride 105, Carbon Eleibog00.8, Anion Gap 12.9, BUN 17, Creatinine 0.54 L, Est GFR (CKD-EPI) > 60.0, Glucose 100, Calcium 8.7, Total Bilirubin 1.3 H, AST 25, ALT 23, Alkaline Phosphatase 89, Total Protein 5.2 L, Albumin 3.6, Globulin 1.6, Albumin/Globulin Ratio 2.3 03/09/23 12:25: Corrected WBC 2.4 L, Uncorrected WBC Count 2.4 L, RBC 3.35 L, Hgb 11.1 L, Hct 33.1 L, MCV 98.8, MCH 33.0, MCHC 33.4, RDW 15.4 H, Plt Count 28 L*, MPV 8.3, Neut % (Auto) 56.5, Lymph % (Auto) 30.2, Hodgeman % (Auto) 11.1, Eos % (Auto) 2.1, Baso % (Auto) 0.1, Nucleat RBC Rel Count 0.0, Neut # (Auto) 1.4 L, Lymph # (Auto) 0.7 L, Hodgeman # (Auto) 0.3, Eos # (Auto) 0.1, Baso # (Auto) 0.0, Platelet Estimate Decreased, Large Platelets Slight, Plt Morphology Comment N/A,RBC Morphology N/A, Polychromasia Slight, Anisocytosis Slight, Tear Drop Cells Slight - Impressions PET f-18 bone subq (nopr) 03/09/2023 12:42 PM SIGNS AND SYMPTOMS: History of multiple myeloma PROTOCOL: PET images were obtained after intravenous radiotracer administration from the top of theskull through the feet. Low-dose CT of the same anatomy was performed. After attenuation correctionof PET imaging, fused PET CT images weregenerated and reconstructed in axial, sagittal, and coronalplanes. COMPARISON: 03/30/2022 RADIOPHARMACEUTICAL: 10.31 mCi of intravenous fluorine 18 sodium fluoride FINDINGS: There is diffuse abnormal increased radiotracer accumulation throughout the calvarium, spine, sternum, clavicles, shoulders, distal humerus, proximal radiusand ulna, pelvis, femurs, left tibia, and bilateral [...] prior exam and consistent with diffuse marrow infiltrativeprocess/history of multiple myeloma. No new areas of abnormal radiotracer accumulation are appreciated. Impression dictated by: Juan J Frazier M.D.03/09/2023 3:22 PM Assessment and Plan - TNM Staging Staging: Stage IIIA Multiple Myeloma (Durie Boring criteria) (1) Multiple myeloma Qualifiers: Multiple myeloma remission status: not in remission Qualified Code(s): C90.00 - Multiple myeloma not having achieved remission Mojgan 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 She has high risk cytogenetics and I [facility] Her persistent thrombocytopenia made her ineligible for any clinical trials, and preventedher from receiving local pain procedures given her chronic low back pain. --05/2017 PET/CT images and reports performed for staging to exclude bone involvement with myeloma. 2 indeterminate areas of uptake thought to be degenerative arthritis vs early bone findings of myeloma (right parietooccipitalarea and upper sternum). She has remained asymptomatic [...] showed no lytic lesions and she has stableshoulder, hand, and right SI joint pain (although likely due to fibromyalgia. --Prior osseous survey 07/01/2019 showed osteopenia but no compression fractures or lytic lesions were identified. She had no significant change in myeloma labs(mild increase of urine M-spike, kappa/lambda ratio, and normal serum M- spike and quant immunoglobulins). Urine protein still undetectable, therefore will continue surveillance every 6 months with the same labs--no hypercalcemia, renaldysfunction (or proteinuria), anemia, or new bone symptoms. --Due to COVID- epidemic, her 6-month follow-up was performed by [...] 1) on 02/07/2020 to minimize exposures during COVID- epidemic. --The patient's myeloma labs (December 2019) do show normal quantitative immunoglobulins with IgA lambda monoclonal protein by immunofixation (serum IgA is 272). Her kappa/lambda ratio shows a predominance of free lambda 479 with elevated free kappa 23.6 and abnormal free kappa/lambda ratio of 0.05. Urine immunofixation also shows lambda type Bence-Murray proteins with urine M spike 43.1 but totalprotein 34.4, with no reported urine creatinine. --We deferred immunosuppressive chemotherapy for about 1 month due to control ofsymptoms after palliative radiation and concern of potential peak of COVID-19 inlate January early March. --She presented for follow-up 03/05/2020 and we discussed potential therapy options (with son available by phone). --I discussed her case with Dr. Ptier Benavidez of malignant hematology, possibly presenting the patient in hematology tumor board at [facility]. --Infusion port placed 03/22/2020 at [facility] due to low platelets. No complications. --03/12/2020: Myeloma labs with no serum M-spike, + urine M spike 22.2mg/24h (14%). Immunofixation IgA lambda specificity. IgA normal 227, Serum kappa 20.6, serum lambda 516.7, Free kappa/lambda ratio0.04. Normal renal function and calcium. Lower ANC 600 and platelets 40,000 --04/10/2020: Started cycle 1 day 1 of weekly dexamethasone 20 mg IV (careful to watch blood sugars with diabetes and known hepatic dysfunction), decreased dose of bortezomib 0.7 mg/m? twice weekly for2 weeks on 1 week off (due to known liver disease and thrombocytopenia), and daratumumab 8mg/kg D1,D2 IV first week,then 16 mg/kg IV weekly and we may consider Revlimid as a 4th medication if needed (deferred for worsening neutropenia and thrombocytopenia--I am reluctant to add this therapy initially). --------- --01/21/2021: One year f/u F18 PET/CT with stable FDG avidity, monoclonal labs (SPEP, Quant Igs, kappa/lambda ratio) all pending. Stable CBC and CMP. Persistent pain left hand 2nd MCP joint--increaseduptake on PET/CT but no lesion on left hand xray from 11/2020. Sending for ortho evaluation. For nowcontinue once monthly Daratumumab. F/u with myeloma labs and exam in 2 months, sooner prn. --05/24/2021: Bone marrow biopsy does not show significant progression although poor prognosis mutation 1q with 13q on FISH. Hypocellular with recent worseningplatelets without bleeding--will recheck B12, folate, and ferritin. [...] sent for plain films of the hip femurand knee showing degenerative changes but no acute [...] progression although she still has slow rise inlambda light chain and platelet count remains in [...] check. She will sign Revlimid consent Thursday. Sheis in agreement with this plan. --09/20/2021: Started daratumumab loading doses weekly with Revlimid on 09/04/2021. Held therapy forANC 900 and platelet 42,000 with sinus infection, now resolved and resumed Revlimid 5mg daily on 09/17. Will continue therapy as prescribed with weekly CBC and hold Revlimid as needed for cytopenias.Evaluation for [facility]T [facility] at [facility]. Send myeloma labs and skeletal survey [...] current cycle of Revlimid with change to pomalidomide4 mg daily, follow weekly CBCs after change in therapy and determine optimal dose based on symptomsand cytopenias. Patient is in agreement with this plan. Next follow-up with me in 1 month and we will defer next light chain analysis until 1 month after change in therapy. --02/19/2022: Continued rise in lambda light chains and worsening thrombocytopenia. Today we reviewed informed consent for adding pomalidomide 3 mg daily days 1 through 21 every 28 cycle 2 every otherweek daratumumab. We are dropping Revlimid due to [...] initial cycle was only given 03/05-03/13/2022. Now thatradha has complete resolution of symptoms she may resume pomalidomide at 1 dose level reduction 2 mg daily for days 1 through 21 of each 28-day cycle. We are also holding her daratumumab today due to declining her platelet count 41,000 without bleeding. Repeat kappa/lambda light chain ratio was increased 80 on 5 4but this was her first dose of pomalidomide. Plan anticipate arrival of pomalidomide within the next 1 to 2 weeks and she may resume daratumumab on day1 of therapy. Her next follow-up will be [...] for following myeloma show normal mild increase herfree lambda from 87 to 106, kappa/lambda ratio decreased 0.10-0.09. I will give her 1 more month ofpomalidomide with daratumumab and dexamethasone. The pomalidomide dose will be changed to 2 mg p.o.days 1 through 14, off days 15 through [...] bony lesions. Her kappa/lambda light chain ratio remainsrelatively stable since early March (0.09-0.11) with free lambda light chainsnow relatively stable (106-109). I advised continuing her current regimen and reevaluating with kappa/lambda light chain ratio in 2 months. Continue current dosing and close observation due to platelet count 48,000. No signs or symptomsof infection. Patient is in agreement with this plan. --07/10/2022: Mojgan has no new symptoms, but continued cytopenias with 2 weeks of pomalidomide helddue to recurrent neutropenia and persistent thrombocytopenia (40-50,000). Continued uptrending lambda light chains consistent with progression of myeloma. We did discuss bone marrow biopsy, but this would not policy change clerk, therefore we will give Pomalyst (now decreasedto 2mg Thursday and only) with last dose Daratumumab tomorrow. 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 --09/17/2022: Mojgan is here for cycle 3 of modified CYKLONE regimen. She continues to do ok with only mild fatigue, no other new complaints or s/s of infection. She is ok to treat per discussion with Dr. Marinelli despite low WBC, ANCand platelets. She will follow-up in 3 weeks [...] CBC, CMP, SPEP, VAHID, immunoglobulins, and FLC. Sheis in agreement with this plan and has no questions. --10/29/2022: Stable symptoms on current therapy. Recent viral infection with worsening cytopenias.She has been off weekly therapy for the last 2 weeks due to cytopenias, therefore we will hold 1 further week and if her blood counts meet parameters, she will have dose reduced Carfilzomib 27-->20mg/m2 IV weekly, Cyclophosphamide 300-->240mg/m2 IV weekly, and Dexamethasone 20mg IV/po weekly. She is overdue for echo which was ordered today and we will check results beforeresuming therapy. Next follow-up with me in 6 weeks or sooner as needed. [place]/lambda light chains were reviewed and doshow partial response over the last 3 months. We will continue to follow at least every 2 to 3 months while ontherapy. . No longer a candidate for Blenrep--access removed by FDA for limitedefficacy. Moderate complexity 35 minute followup visit. --11/26/2022: No new symptoms with ongoing response of lambda light chains but persistent cytopenias. In absence of new symptoms of infection or bleeding, we will continue therapy with further dose reduction of cyclophosphamide to 180mg/m2 IV weekly with stable dose Kyprolis 20mg/m2 IV weekly and Dex amethasone. Discussed with Dr. Benavidez at --he would support holding therapy and observationif persistent cytopenias and consider bone marrow biopsy. For now will continuemonthly followup and myelomalabs every 1-2 months. She may be a [...] persistent cytopenias and sinusitis. She now has LON269 and platelets 37,000 without bleeding. Relatively stable lambda light chains in 40s range. I will hold therapy another 2 weeks, give Augmentin 875mg bid x 2 weeks for persistent sinusitis (no airfluid levels on CT scan), and send referral to Dr. Benavidez for possible CD3/BCMA bispecific antibody therapy (risk of cytokine release syndromewith first dose, requires inpatient observation at a [...] first week due to risk of cytokine releasesyndrome). Nextfollowup with myeloma labs in 2 months, sooner prn. 30 minute moderate complexity followup. --02/18/2023: No active therapy since 12/04/2022--platelets have not improved. Continued uptrending kappa light chains (now 60s range). 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 Worsening right hip/leg pain--repeat PET/CT to determine if bony progression (plain film without obviouslytic lesion right hip/femur). Will set up IR guided bone marrow biopsy to evalwhether persistent cytopenias due to progression vs. therapy related MDS. Hold Kyprolis/Cytoxan and if no progression or MDS on bone marrow biopsy, we will resume lower dose Cyclophosphamide 120mg/m2 IV weekly,Kyprolis 20mg/m2 IV weekly, and Dexamethasone 20mg weekly. [...] cells in addition to a 12% atypical clonalB-cell population on flow cytometry. Given her hypocellularity and low percentage of plasma cells despite increasing lambda light chains onperipheral blood, we will continue to hold her [...] CBC monthly and follow-up with her in 3months with CBC, CMP, quantitative immunoglobulins and kappa/lambda light chains. She may return sooner if new issues arise. High complexity 45-minute visit for review of bone marrow biopsy, imaging,complex medical testing, discussion of plan. (2) Bone marrow hypocellularity Hypocellular for age with 10% cellularity. Nutritional work-up as noted above. We will contact her with results and replete deficiencies as needed. We will try to defer repeat bone marrow biopsies aslong as we can given her light chainmyeloma. 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 I previously reviewed her outpatient records from [facility], including review of notes, laboratories, and prior bone marrow biopsy 13 years ago. 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 Most recent platelet count is relatively stable at 54,000 but no clinical bleeding. She waspreviously referred to weight reduction clinic and may have slow improvement of steatohepatitis with lifestyle modification. Unless she has active bleeding or planned surgery, we will continue observation during treatment of active myelomato commence next month as noted above. --Agree with recommendation for EGD surveillance for varices (last was 09/2018--negative). This will be deferred during current COVID-19 epidemic. --Prior vitamin B12 and folic acid are normal, for known history of neuropathy. As noted above, I reviewed the negative M spike on serum protein electrophoresiswith immunofixation, but positive for Bence Murray protein on urine protein electrophoresis. Her Quantitative immunoglobulins IgG, IgA, and I gM were all within normal limits, however her serum kappa lambda light chain analysis showeda predominance of lambda light chains. --Previous labs for lupus anticoagulant with DRVVT, hexagonal phase phospholipid, anti-cardiolipin IgG and IgA, and beta 2 glycoprotein IgG and IgA were within normal limits. --Evaluated in ED November 2019 for epistaxis which resolved. Platelet count wasstable at 12/28/2019 follow-up. She continues surveillance with liver clinic at [facility] and I will continue to follow her every 6 months, sooner if newbleeding issues arise. --04/02/2020: We reviewed informed consent for Daratumumab/Velcade/Dexamethasone for active myeloma therapy. I requested prior liver biopsy results and notes from liver clinic at [facility]. Platelet count in 40,000 range but patient has had no active bleeding following infusion port placement 03/22/2020. --08/13/2020: Cycle 6 week 2 toxicity check with improved thrombocytopenia 79,000 range with no bleeding. We will continue current dosing with Velcade 0.7mg/m2 sq (now once weekly), dexamethasone 20 mg weekly, and full dose daratumumab with close follow-up of liver function and platelet counts. --09/24/2020, 01/21/2021, 03/28/2021: Platelets stable 60-70,000 with no new toxicities, started Daratumumab maintenance 10/02/2020. --04/24/2021: Platelets now down to 57,000 with rising lambda light chains. Will eval with repeat bone marrow biopsy due to nonsecretory myeloma. --05/24/2021: Bone marrow hypocellular without significant myeloma progression. Normal B12/folate stores, continue Daratumumab maintenance. --08/16/2021: Persistent thrombocytopenia in 50,000 range, consider change in therapy due to risinglambda light chains. Will check echo and review case withDr. Benavidez at to discuss next line of therapy. --08/30/2021: Stable platelets--decision to resume weekly Daratumumab 16mg first 3 cycles and change to Revlimid 5mg daily 1-21 each 28 day cycle--titrate as tolerated --09/20/2021: Platelets have declined to 40-50,000 range without mucosal bleeding. Held Revlimid atplatelets 42,000 during sinus infection, resumed after one week off. Will follow weekly CBCs on Daratumumab/Revlimid. --12/18/2021, 01/22/2022: Platelets still in the 50,000 range without mucosal bleeding. Current dosing of daratumumab every 2 weeks and Revlimid 5 mg daily 2weeks on 2 weeks off--plan to change to pomalidomide 3 mg daily next cycle. -- 02/19/2022: Last week platelets were 48,000 and we held Revlimid. This week platelets 58,000 but continuing to hold Revlimid due to change to daratumumab 16mg/kg IV every 2 weeks with pomalidomide 3 mg daily days 1 through 21 every 28-day cycle -- 03/19/2022: Platelets were down to 41,000 and we held daratumumab as well as Pomalyst for rash asnoted above. Resume Pomalyst at 2 mg days 1 through 21 every 28 days. Continue daratumumab 16 mg/kgevery 2 weeks. -- 04/09/2022: Platelets down to 40,000. Okay to give daratumumab 16 mg/kg IV every 2 weeks but Pomalyst dose will be changed to 2 mg days 1 through 14 every 28 days. Follow-up 1 month. -- 05/07/2022: Platelets 48,000. Continue monthly daratumumab 16mg/kg IV with same Pomalyst dose 2mg daily D1-14 every 28 days. Extend next follow-up with kappa/lambda light chain ratio to 2 months. --07/10/2022: Platelets 53,000 with ANC now 600 (held Pomalyst one week for ANC 300). May have one dose Pomalyst today, then hold for change in therapy. Will have platelet transfusion as needed for change in therapy to Kyprolis/Cytoxan/Deamethasone. --08/20/2022: Platelets declined to mid 30,000 range about 4 weeks ago--now up to 56,000 and WBC 1600 and ANC 1000 on Kyprolis/Cytoxan/Deamethasone. No activebleeding. Continue current dosing and f/uin 3 weeks. --09/17/2022: Platelets at 43,000 without recent transfusion. WBC and ANC at 1.4and 600 respectively. Will continue with treatment. --10/15/2022: Platelets at 49,000. No s/s of bleeding. Ok for treatment. --10/29/2022: Platelets at 31,000 with ANC 400. Dose reductions recommended asnoted above. No active bleeding. Follow-up 6 weeks. --11/26/2022: Platelets at 40,000 with ANC 700. Dose reduction cyclophosphamideonly as noted above. No active bleeding. Follow-up 4 weeks. --No chemo since 12/04/2022. Platelets 37,000-->68,000. --02/18/2023: Platelets still 35,000. Sending for IR guided bone marrow biopsy. Will continue to hold chemotherapy until bone marrow biopsy review in 3 week. We may resume with cytoxan dose reduction if no progression or MDS. She may be a future candidate for bispecific antibodies for multiple myeloma. Still has nobleeding. -- 03/11/2023: Platelets have now declined to 28,000. She had increased bruisingaround the site of her bone marrow biopsy but no other bleeding. We are continuing to hold her chemotherapy for bone marrow cellularity and assess B12, folate, and copper stores. No indication for active treatment of myeloma at this time given plasma cells 4%. We will continue to follow closely with CBC twice this month then if stable once monthly. (4) Cancer-related pain Improved symptoms after palliative radiation to bilateral hips--one dose 02/07/2020, radiation to right hip . Will continue to follow on myelomachemotherapy. Extensive, but stable bone involvement on F-18 PET/CT 12/2020 and 04/2021. Recent increased left neck and shoulder pain. Increased oxyco done dosing to three times daily, no unusual right hip pain is noted above--followed by palliative medicine. -Completed right hip radiation with persistent but improved pain--no new pain issues with follow-upvisit with radiation in early March 2022, follow-up as needed. Will continue to follow with palliative medicine. --02/18/2023: Worsening right hip pain--pending PET/CT for restaging as noted above, f/u 3 weeks. -- 03/11/2023: No change in uptake in the right hip on PET/CT. Following with palliative medicine. No indication for reirradiation to right hip unless refractory to medication therapy. 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 [facility] to attempt weight reduction through diet and exercise that may prevent further fatty infiltration that may further impairher liver function. [facility] hepatology discussed liver transplant but sheis likely no longer a candidate for this given active myeloma. We chose least hepatotoxic regimen for treatment of her active myeloma with 50% dose reduction of Velcade. Liver function remained stable since start of therapy 04/10/2020. --Requested prior liver biopsy and [facility] liver clinic records. Dose reduction 20% Kyprolis due to KAPADIA with cirrhosis (normal bilirubin and transaminases). Stable LFTs on current Kyprolis/Cytoxan/Dexamethasone therapy (on hold since 12/04/2022). (6) Encounter for coordination of complex care Initial Daratumumab maintenance tolerated well without significant toxicities. Bone marrow biopsy did not reveal indication for change in therapy. --09/04/2021: Repeat loading with weekly Daratumumab 16mg first 3 cycles and changed to Revlimid 5mgdaily 1-21 each 28 day cycle--02/19/2022 reviewed informed consent to change to pomalidomide next cycle. --03/19/2022. Pomalyst was stopped after 1 week of therapy on 03/13/2022. Daratumumab held 03/19/2022 due to platelet count 41,000. We resumed both medications on arrival of dose reduce Pomalyst 2 mg days 1 through 21 every 28- day cycle. -- 04/09/2022: Daratumumab is monthly maintenance. Mid July: last dose Pomalyst 2mg today with ANC 600. -- 07/30/2022: Changed chemo to Kyprolis/Cytoxan, normal baseline Echo. -- 10/29/2022: Dose reductions for cytopenias Carfilzomib 27-->20mg/m2 IV weekly, Cyclophosphamide 300--240mg/m2 IV weekly, and Dexamethasone 20mg IV/po weekly. Will continue every 3 week therapy until progression or intolerable toxicity. --11/26/2022: Platelets at 31,000 with ANC 400. Dose reductions Carfilzomib 27-->20mg/m2 IV weekly, Cyclophosphamide 300--240-->180mg/m2 IV weekly, and Dexamethasone 20mg IV/po weekly. Therapy on hold since 12/04/2022 for cytopenias and sinusitis. Continue to hold 02/18/2023 pending bone marrow biopsy. -- January 2023: 1 dose IVIG 0.4 mg/kg due to recurrent sinusitis. No improvementof platelet count. -- 03/11/2023: Bone marrow biopsy with 10% cellularity, 4% plasma cells. Decision to continue to hold carfilzomib/cyclophosphamide/dexamethasone and work-up for nutritional etiologies. - Chemo Plan Chemo Plan (Dose, Rate, Freq): Active chemotherapy on hold since 12/05/2022 due to persistent thrombocytopenia. Goal of Treatment: Palliative - Time with Patient Time Spent with Patient (Follow Up Visit): 45 minutes or more - High complexity--review results of PET/CT and IR bone marrow biopsy, discussion with patient and daughter to continue to hold therapy, nutrition evaluation for cytopenias Coordination of Care & Counseling Time: Greater than 50% of time spent with patient was for coordination of care (as documented) and [id number] counseling of patient and/or family. 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 [employer] Other 04-26-2023 Evaluation note* Encounter Date Diagnosis Assessment Notes Treatment Notes Treatment Clinical Notes Jan, Multiple myeloma (ICD-10 - C90.0 0) Follows with Dr. Marinelli with long history of treatment lines, most current therapy with carfilzomib with cyclophosphamide on hold due to persistent thrombocytopeniaRepeat bone marrow biopsy yesterday (02/24/2023) Jan, ancer associated pain (ICD-10 - G89.3)OARRS reviewed: PCP Dr. Lopez & his sweeping compound blender have been prescribing oxycodone 10 mg tabs & gabapentin 400 mg tabs Johana agrees to follow with palliative care provider for pain & symptom management; Opioid Informed Consent and Agreement reviewed and signed today. Johana reports good effect with oxycodone 10 mg dose but pain is not adequately controlled with BID dosing of short-acting opioid. Somedays she needs 3 tabs and some days when pain is more bothersome, she may need 4 tabs. Will continue same dosage and increase frequency to 4x/day as needed and reassess pain/symptoms in 3-4 weeks. Increase Oxycodone 10 mg to QID PRN using current supply with Rx refill sent to pharmacy on March 02. F/U here 3 weeks Jan,Encounter for palliative care (ICD-10 - Z51.5)Initiating palliative care to assist with symptom management, goals of care/advance care planning and additional support Jan,Neuropathy (ICD-10 - G62.9)Continue Gabapentin PRN for now, may consider a lower dose more routinely in the future. Patient will think about this. Jan,onstipated (ICD-10 - K59.00)Management of constipation hand out provided to patient [employer] Other 04-19-2023 Progress note Author Fabiola Marinelli [facility] February 18, 2023 8:07pmNote Date/TimeApril 2022 9:54[facility] [place] [address] Hem/Onc Follow Up Note - OP Signed Patient: Mojgan Pérez MR#: [id number] : 1955 Acct:[id number] Age/Sex: 67 / F Type: REG RCR Copies to: MD Yinka Downey MD Katherine M McGraw, [employer]~ Subjective Date/Time of Service: Date of Service: 02/18/2023 Time of Service: 09:35 Chief Complaint: Patient is here today for a follow up visit and go over recent labs HPI: 02/18/2023: One month followup--still off active therapy with Kyprolis/Cytoxan past 2 1/2 months dueto persistent thrombocytopenia and initiation of IVIG for admission for urosepsis 01/28/2023. Despite off therapy, she has persistent low platelets 35,000 without bleeding. Uptrending kappa light chain to 60s. Notes recurrent right hip pain--I recommended repeating F-18 PET/CT to determine if bony progression with right hip/pelvis/femur film. Will also set up IR guided bone marrow biopsy--review results in 3 weeks and decide whether to resume active therapy. If lytic lesion at hip/acetabulum/femur concerning for potential fracture, will refer to orthopedics for possible prophylactic kenton. Stillno contact from Dr. Benavidez for bispecific antibody therapy. Moderate complexity 35 minute followup. 01/09/2023: Here for followup after consult with Dr. Benavidez last week. Progress note is still pending, but we communicated by secure text regarding her evaluation. Myeloma labs are stable with mild increase of serum kappa from 40s to 60s range. Platelet count now to 68 and ANC 900 since holding Kyprol is/Cytoxan since 12/05/2022 for cytopenias. We decided to hold 2 more weeks then resume Kyprolis at same dose 20mg/m2 and further decrease Cytoxan to 40% dose overall when we resume dose. Next line of therapy at progression may be CD3/BCMA myeloma bispecific antibody Teclistamab (needs to be hospitalized first week dueto risk of cytokine release syndrome). Plan to resume likely in 2 weeks if adequate blood counts and no infection. F/u with myeloma labs (CBC, CMP, quant immunoglobulins and kappa/lambda light chains) in 2 months, sooner prn. Moderate complexity 30 minute followup. 12/26/2022: Mojgan continues to have nasal drainage sinus congestion and pain despite completing 2 weeks of amoxicillin and no air-fluid level on CT Sinuses 11/30/2022. We gave last dose of Kyprolis/Cytoxan (60% dose) on 12/05/2022. Peripheral neuropathy is stable, no diarrhea, no skin rashes. We reviewed her labs with ANC 900, platelets 37,000 and she notes easy bruising but no nasal/oral mucosal, GI or bleeding. I will again hold Kyprolis/Cytoxan another 2 weeks and give 2 weeks of Augmentin 875/125mg bid for her persistent sinus infection and Diflucan 100mg daily for vaginal candidiasis. Will formallyrefer back to Dr. Benavidez to see if she is a candidate for the CD3/BCMA myeloma bispecificantibody therapy which she would need to receive at [facility]. F/u with me in 2 weeks--if persistent cytopenias we may need torepeat her bone marrow biopsy (if now performed by Dr. Benavidez). She agrees with this plan over this 35 min moderate complexity followup visit. 11/26/2022: Mojgan is here for monthly followup on modified CYKLONE therapy. Notes increased frontal headaches over the past with with nasal congestion--sending for sinus CT and 2 week course of Augmentin bid. Platelet count recently dropped as low as 25-31,000 without bleeding (currently 40,000), WBC to 1300 with ANC 700. No current fever, chills or symptoms of infection. Prior dose reductions of Kyprolis to 20mg/m2 weekly with cyclophosphamide 240mg/m2 weekly). Echo with normal EF 55-60%. We will further dose reduce cyclophosphamide to 180mg/m2 (overall 40% dose reduction) and maintain Kyprolis at 20mg/m2. She has ongoing decline of lambda light chains over the past 6 months indicating response. I discussed her case with Dr. Piter Benavidez who notedtherapy could be held if worsening cytopenias. For now continue monthly followup with myeloma labs (quant immunoglobulins and kappa/lambda light chains). Bleeding precautions and f/u sooner if new symptoms arise. Moderate complexity 35-minute visit for review of complex labs and adjustment of chemotherapy regimen. 10/29/2022: I asked Mojgan to return today due to cytopenias on labs and discussion of either dosereduction or changing therapy. She notes that over the last 2 weeks she has had cough, body aches, worsening fatigue, but no fever. She was diagnosed with a non-COVID viral syndrome. Her symptoms arestarting to get better but she has more significant cytopenias with absolute neutrophil count of only 400 with total white blood cell count 1000. In addition her platelet count is 31,000 she has not had any active bleeding issues. We were unable to contact her to tell her not to come in for chemo but I decided to see her today since she was last evaluated by nurse practitioner last 2 visits. Hermyeloma labs show relatively stable lambda light chains which appear to have responded since start oftherapy in July. She is due for her echocardiogram and due to her cytopenias we will hold therapy today and plan 1 level dose reductions of both cyclophosphamide (from 300 to 240 mg/m2 IV weekly)with Kyprolis dose reduction (from 27 to 20mg/m2 IV weekly). She has been off therapy past 2 weeks due to cytopenias. If she is unable to resume therapy we may consider an alternate therapy such as Blenrep. She is otherwise in agreement with current plan of care. Moderate complexity 35-minute visitfor review of complex labs and adjustment of chemotherapy regimen. 10/15/2022: Mojgan is here for follow-up for her multiple myeloma on modified CYKLONE therapy. Shecontinues to do well and remains active at home. She deniesshortness of breath, chest pain, nausea,vomiting, diarrhea or constipation. Sheis eating and drinking well. No fevers, chills, sweats, bleed ing or rash. She does note mild tongue soreness and on exam it appears she may be developing thrush, very mild currently on the tongue only. We will prescribe nystatin for this. Labs are reviewed andstable overall, ok for treatment. She will follow-upin 4wks with Dr. Marinelli with repeat labs and treatment. 09/17/2022: Mojgan is here for follow-up on modified CYKLONE therapy for her multiple myeloma. Shecontinues with fatigue, but otherwise no new complaints. She has no s/s of infection, no shortness of breath, chest pain, n/v/d or other concerns. In review of her labs, her WBC are 1.4, ANC 0.6 and platelets 43,000. Per Dr. Marinelli, given no s/s of infection and she otherwise feels well, she is okfor treatment. We discussed signs to report related to infection such as fever, chills, etc. and she will call with any concerns. We will follow-up in 3wks withrepeat labs. 08/20/2022: Mojgan is here for 3-week follow-up on modified CYKLONE therapy (cyclophosphamide 300 mg/m2 IV weekly, dexamethasone 20 mg IV weekly, and carfilzomib now 56 mg/m2 IV weekly). Baseline echocardiogram 07/18/2022 showed normal ejection fraction 60 to 65%. I discussed her case with Dr. Benavidez who advised that despite her significant thrombocytopenia she should be treated withfull dose cyclophosphamide/carfilzomib and may support with transfusions as needed. The patient's lowest platelet counts were in the 30,000's after her first week of therapy but now is up to 56,000. She has not hadany clinical bleeding. She also has persistent leukopenia 1900 today with absolute neutrophil countnow 1000. At this point as long as she does not have any significant symptoms of therapy or signs of infection or active bleeding we will continue her current dosing. She otherwise notes mild fatiguebut no other toxicities. Prior skin rash on Pomalyst has resolved. She will follow-up in 3 weeks for toxicity check with nurse practitioner and we will order her restagingmyeloma labs with serum protein electrophoresis with immunofixation, quantitative immunoglobulins, and kappa/lambda light chain ratio. She may return sooner if new issues arise. Moderate complexity follow-up over 30 minutes to address cytopenias on CYKLONE therapy. 07/10/2022: Mojgan is here for 2-month follow-up of myeloma labs. No changes in medical history and platelet count remains in the 40-50,000 range without bleeding. We held her Pomalyst (as well as daratumumab) this week due to absolute neutrophil count of 300 without any recent infections. She previously held it for 1 week due to neutropenia, took 1 tablet, then had to hold a second week due to neutropenia. We reviewed her kappa/lambda light chain ratio which continues to progress in the wrong direction (total lambda light chains now increased from 109 to 125.7 with ratio from 0.11 to 0.08). Her progressive cytopenias and worsening light chains likely reflects progression of myeloma. We could repeat her bone marrow biopsy but her most recent bone marrow biopsy on10/09/2021 showed hypercellular bone marrow (30%) with slight megakaryocytic and granulocytic hyperplasia and only 1.5% plasma cells (Lambda restricted by flow cytometry). This likely would not change her current management and I discussedher case with Dr. Benavidez of malignant hematology who recommended considering carfilzomib (Kyprolis) with cyclophosphamide. I will contact patient to coordinate baseline echocardiogram forKyprolis and likely she will require dosereductions for her underlying hepatic dysfunction and chronic cytopenias. AfterI reviewed dosing with Dr. Benavidez and pharmacy and review her echocardiogram, goldll coordinate follow-up for change in therapy and chemotherapy consent. For now we will continue daratumumab with altered dose of Pomalyst to 2 mg twice weekly ( and Mondays) until change in therapy. I will not likely send dose reduction of Pomalyst due to planned change in therapy. Moderate complexity 35 minutes for coordination of care. 05/07/2022: Improved rash on 2 mg of Pomalyst, now mild pruritus. Platelet count is 48,000 without bleeding issues. Continues weekly prednisone. Daratumumab isnow monthly since early April. Repeat kappa/lambda light chain ratio slightly higher (106 to 109) But the upward trend is starting to flatten out. F-18 Axumin PET/CT shows no new lesions, relatively stable from 1 year ago. For now given her stable symptoms and pronounced cytopenias, we will continue her current dosing daratumumab/Pomalyst/dexamethasone. Next follow-up with me in 2 months. She will return sooner for issues arise. Moderate complexity visit over 35 minutes. 04/09/2022: Mojgan continues every 2-week durvalumab with Pomalyst now 2 mg daily (dose reduced due to diffuse rash). She is now day 14 of the cycle and isnoted to have platelet count of 40,000 (no associated mucosal bleeding, bright red blood per rectum, or hematuria). No recurrent rash on this dose. She continues her weekly prednisone. I recommended changing her schedule of Pomalyst to 2 mg daily for days 1 through 14, off days 15 through 28 cycle and continuing daratumumab. Her most recent immunoglobulins have shown a steady trend upward for lambda light chain and decrease of kappa/lambda light chain ratio, however since she is now stabilizing her dosing of daratumumab/Pomalyst/dexamethasone I recommend continuing her current dosing for1 more cycle with repeat kappa/lambda light chain ratio in another month. In addition I will set her up for F-18 Axumin PET/CT to compare to PET/CT from 1 year ago (her skeletal survey showed no lesions 6 months ago). She denies any current bone pain.She will proceed with daratumumab dose as previously orderedtoday. 03/19/2022: Mojgan is here for follow-up after adverse cutaneous reaction to her first cycle of Pomalyst. She noted that after starting her first dose of Pomalyst 3 mg daily on 03/05/2022 that about 1 week later on 03/13/2022 she had a diffuse rash all over that was pruritic with increased erythema. She did not have nausea, vomiting, constipation, diarrhea, dyspnea, or any other adverse reactions. She did have a decline of platelet count to 41,000 this week which may be due to her Pomalyst. She called the pharmacy and was instructed to discontinue Pomalyst on 03/13/2022. Her rash has mostly resolved with no furtherpruritus but she still has a few macular lesions over the legs. She has been using Benadryl and topical cortisone cream with improvement of the rash. Otherwise her laboratories are stable. She does have an increased kappa/lambda light chain ratio from 03/05/2022 but this was her first day of therapy. I recommended resuming Pomalyst at next dose level 2 mg daily as soon as new medic ation arrives for 3 weeks on 1 week off. If she has recurrent rash she will again stop and we will consider further dose adjustment. Due to her thrombocytopenia we will hold her daratumumab today andconsume with first day of Pomalyst next week. She may follow-up in about 3 to 4 weeks, possibly with virologist covering at that time. Patient expressed understanding. 02/19/2022: Mojgan is here for follow-up--no new symptoms but her platelet countdropped to 48,000 last week and we are again holding her Revlimid. She has not had any bleeding or infection recently, but she has had uptrending lambda light chains and we discussed changing her therapy from lenalidomide to pomalidomide and continuing her daratumumab which is currently every other week. Her only other concern is constipation which is likely related to her pain medications. ANC was 800 today. --Today we reviewed chemotherapy counseling for lenalidomide in combination withdaratumumab/dexamethasone (stopping Revlimid). Common toxicities were reviewed to include allergic reactions, myelosuppression, thrombosis, fatigue, nausea, vomiting, constipation, diarrhea, mouth sores, and risk of secondary malignancies. Other toxicities may include pneumonitis, neurologic, hepatic andrenal toxicities. The patient signed informed consent and will follow-up as directed. Planning a trip to [place] on March 06, therefore we will hold Revlimid until arrival of her pomalidomide, then have oral chemotherapy visit. We are starting pomalidomide at 3 mg daily days 1 through 21 every 28 days due to baseline liver dysfunction. Follow-up cycle 1 week 2. We will recheck her baseline myeloma labs on start day of pomalidomide with daratumumab. 01/22/2022: Mojgan has no new complaints. She was seen by Dr. Benavidez at for evaluation for transplant and CAR-T options but given her profound thrombocytopenia, neither of these options are felt tuyet optimal for her. She has had gradual worsening of her lambda light chains without any change of renal function or hypercalcemia. Her chronic thrombocytopenia has remained in the 40- 50,000 range which is lower than her prior baseline. I reviewed her options with Dr. Benavidez and it is difficult to assess best options due to her chronic thrombocytopenia but standard of care at this point would be to continue her daratumumab and transition from the lenalidomide to pomalidomide. We will follow closely with weekly CBCs to determine if thrombocytopenia worsens on thisregimen. I will defer changing her regimen for 1 month since she is starting a new cycle of lenalidomide and has had slow progression of her lambda light chains. She will return in 1 month and will discuss pomalidomide and signed in formed consent. Patient is in agreement with this plan. 12/18/2021: Mojgan is here for 3-month follow-up. She has not had any significant changes in medical history other than testing positive for coronavirus infection in early November 2021. She has not been immunized for coronavirus. She notes persistent fatigue but no bone pain. No other recent infections or bleeding episodes. She recently changed from weekly to now every 2 weeks daratumumab 16 mg/kg and remains on low-dose lenalidomide 5 mg daily for2 weeks on 1 week off due to prior thrombocytopenia worsening. October 2021 skeletal survey showed no osteolytic lesions suggestive of myeloma. Initially she had improvement of her platelets to 70-100,000 but today platelets are down to 54,000. She also had some improvement of leukopenia but this is again down to 2800 with ANC 1300 today. Urinerandom M spike is not observed, but she has had progressive increase of her lambda light chains from 30 in December 2020 to 60.2 in October 2021. [place] lambda ratio has also started to decline to 0.21 in October 2021. For now I'm continuing her daratumumab with Revlimid at current dosing, but I contacted Dr. Benavidez at [facility] for CAR-T celleligibility. If he has recommendations to change her therapy, I will let her know. Otherwise I will have her follow-up with me in 1 month (she will have repeat myeloma labs 1 week prior to visit). 09/20/2021: After telephone consultation with Dr. Benavidez at , we resumed repeat loading doses of weekly daratumumab 16mg/kg and changed to low dose lenalidomide 5mg daily. She has had 2 courses of antibiotics for sinus infection over the past month and was noted to have neutropenia with ANC 900, platelets 44,000 week 2 of Revlimid, therefore this was held for one week and resumed Thursday after ANC returned to 1000. Platelet counts have persisted at 40-50,000 range without active bleeding. Otherwise tolerating therapy well. Still improved hip pain and ambulation after recent course of palliative radiation therapy. For now we will continue Daratumumab with Revlimid and Dexamethasone as ordered with weekly CBC. Gradually increasing lambda light chains--pending evaluation at for CAR-T celltherapy eligibility (has not yetbeen contacted for appointment). 4 week f/u with me with CBC, CMP, and myeloma labs (follow quant immunoglobulins and [place]/Lambda light chain ratio with skeletal survey in 2 weeks so results available for appointment). 08/30/2021: Mojgan is here for 2-week follow-up for completion of her palliative radiation therapywith significant improvement of pain in her right hip and pelvis. We sent her for echocardiogram performed 08/23/2021 at [facility] [place] as baseline for possible Kyprolis therapy. This returned with ejection fraction 60% which is normal with grade 1 left ventricular diastolic dysfunction and 1+ tricuspid valve regurgitation and trace to 1+ aortic valve regurgitation.Otherwise unremarkable. I discussed her case with Dr. Benavidez of malignant hematology at [facility]. He advised against Kyprolis therapy given her underlying liver dysfunction and recommended repeating loading doses of daratumumab weekly as well as low-dose lenalidomide which we will start at 5 mg daily since she has chronic thrombocytopenia. We will send for CAR-T therapy as a possible therapeutic option. The patient agreed with changing daratumumab to weekly and we will haveher sign consent next week for change to low-dose lenalidomide therapy. Next follow-up with me will be in about 2 weeks for week 2 lenalidomide with daratumumab. 08/16/2021: One month followup, she recently completed palliative radiation therapy to right hip and pelvis. Platelet count still in 50,000 range with increased bruising but no bleeding. Still has some pain in right hip but slowlyimproving after radiation therapy. Slowly worsening lambda light chain --she is scheduled for ECHO next week. We discussed possibly changing therapy from Daratumumab, Velcade, Dexamethasone to Kyprolis, low dose lenalidomide, dexamethasone if adequate cardiac function. I will discuss this with Dr. Benavidez for dosing and determine if CAR-T therapy is another possible option (although we may be limited due to chronic thrombocytopenia and liver disease). Followup 2-3 weeks to review results and possible consent for change in therapy. 07/17/2021: 2-month follow-up on multiple myeloma. She reports that Thursday she developed severe painin the right leg that started proximal to the knee creating it to the hip. She had increased pain with weightbearing on the right and has been using a walker at home secondary to this. She did not feel a pop or shift in ambulation, but has been using her Percocet for pain control at home. In reviewing her laboratories platelet count remains in the 52,000 range and she is otherwisPe tolerating daratumumab well. I recommended sending for right hip, femur, and knee plain film imaging that did not show any fracture. She does have a gradually rising lambda light chain but no other significant changes in her labs. I reviewed her case with Dr. Cheng of orthopedic surgery who also reviewed her prior PET/CT showing uptake in this area. We will obtain a right hip MRI, keep her completely nonweightbearing on the right leg with walker for transfers and she has an urgent orthopedic follow-up following her MRI. I will follow-up with her in 1 month to review management and we will determine if she requires prophylactic kenton for stability of the hip based on herMRI. 05/24/2021: Here to followup 05/03/2021 bone marrow biopsy--noted to have decreased cellularity 25%, flow cytometry with 0.2% plasma cells and a 1.5% monoclonal B- cell population. FISH showed 13q and 1qabnormalities but normal cytogenetics. No myelodysplasia seen. I reassured her that recent thrombocytopenia is more likely related to splenic sequestration from liver disease and not worsening myeloma. For now continue current regimen. Will also recheck B12, folate, and iron profile with next labs--followup in 2 months with myeloma labs, sooner prn. 04/24/2021: 1 month followup to review PET/CT. Over the past 2 days, she notes episodes of sharp left sided neck pain over sternocleidomastoid muscle and mastoid area. No radiculopathy down left upperextremity. No new side effects of Daratumumab. F18 PET/CT shows largely unchanged diffuse uptake through multiple bony sites in axial and articular skeleton. Lambda light chains risingover past 2 month and decline of platelet count to 57,000 without bleeding. MRIof thoracic spine did not show significant thoracic canal stenosis. Due to worsening neck pain with extensive uptake on F18 PET/CT--we will send for cervical MRI. Palliative medicine has increased Percocet to tid. We will repeat bone marrow biopsy due to rising lambda light chain and falling platelet count to determine if progression of myeloma noted. This will be scheduled in the next 1-2 weeks. 03/28/2021: 2 month followup for multiple myeloma. More recently notes neck andleft shoulder pain. Fatigue and constipation stable. Labs show stable anemia and thrombocytopenia. Serum M-spike now asymmetric gamma (no quantifiable spike). Slowly improving IgG to near normal. [place]/lambda light chain ratio normal with mildly increased lambda light chains. MRI of thoracic spine for evaluation of increasing left shoulder pain. For now we will continue current dosing of Daratumumab and recheck F18 PET/CT for response in late April 2021. 01/21/2021: Mojgan is accompanied by her daughter for 2 month followup--now Daratumumab maintenance. She notes persistent fatigue and recently added as needed laxatives to stool softener for management of constipation. Persistent left hand pain--correlates to an area of bone uptake on PET/CT. Overall F18 PET/CT appears stable with no new areas if FDG avidity (still extensive bone FDGuptake). We reviewed prior plain xrays of left hand from November--she agrees toevaluation by orthopedic surgery (determine if biopsy or steroid injections). M-spike and kappa/lambda light chains pending. CBC (platelets 60-70,000); CMP stable. Will followup in 2 months with exam and labs. 11/26/2020: Mojgan is accompanied by her daughter for 2 month followup--now Daratumumab maintenance. Stable leukopenia/low platelet 70,000. Notes 3 days of hematuria and mild dysuria. Sending UA and possible culture. Otherwise no new bone pain. Blood sugars stable. M-spike and kappa/lambda light chain ratiostable. Next f/u 2 months after one year f/u PET/CT to determine response to therapy. 09/24/2020: Mojgan presents (accompanied by her daughter) for cycle 8, week 2 followup [id number] mg/kg IV weekly, Dexamethasone 20mg weekly, and Velcade 0.7 mg/m? now sq once weekly for every 3-week cycle (21 days). She notes neuropathy symptoms are stable. Tolerating therapy well without fatigue. No bleeding and thrombocytopenia stable in 60-70,0000 range. On 10/02 she will be due for maintenance therapy with Daratumumab alone once per month. I will f/u with her in 2 months with myeloma labs, sooner as needed. Velcade and Dexamethasone will be stopped after 8 cycles. 08/13/2020: Mojgan is here for cycle 6, week 2 (day 14) daratumumab 16 mg/kg weekly, Velcade 0.7 mg/m? now sq once weekly for every 3-week cycle (21 days), and dexamethasone 20 mg weekly. No new symptoms--improving thrombocytopenia to 79,000 and improved leukopenia. 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 Still has improvement of M-spike, IgA normal and decreased lambda light chain and K/L ratio. We discussed that week 25 in Oct she will change to monthly daratumumab with weekly Velcade (1mg/m2) and Dexamethasone. Continue to follow every 6-8 weeks until maintenance schedule. 06/18/2020: Mojgan is here for cycle 3 week 3 (day 21) daratumumab 16 mg/kg weekly, Velcade 0.7 mg/m? now sq once weekly for every 5-week cycle (35 days), and dexamethasone 20 mg weekly. Tolerating well with stable leukopenia and thrombocytopenia. Mild increased symptoms of hand and foot neuropathy, but no limitation in activity. Now following with diabetes management clinic with variable glucosecontrol. We reviewed lower IgA (now M-spike IgG kappa after Daratumumab--previously IgA lambda). Lambda light chain has decreased from 516 to 41.3 to now 18.5 with normalization of K/L ratio. Continue followup myeloma labs in 6 weeks, visit in 8 weeks. 05/21/2020: Mojgan is here for cycle 2 (week 7 overall) daratumumab 16 mg/kg weekly, Velcade 0.7 mg/m? now sq once weekly for every 5-week cycle (35 days), anddexamethasone 20 mg weekly. Tolerating well with stable leukopenia and thrombocytopenia. No significant neuropathy. Noted to have improvement in lambda light chains. No further daratumumab infusion reactions. No infections,stable constipation, pain control improved. No other complaints. Continue monthly f/u with myeloma labs. --Diabetes management--added insulin on dexamethasone days. Hyperglycemia improving. 01/18/2020 (phone followup)--The patient's son was available by phone and her daughter was contactedin a separate phone call as patient presented unaccompanied due to COVID-19 precautions in our clinic during the current epidemic. Bone marrow biopsy results were reviewed as follows from procedure pe rformed 01/26/2020: --Bone marrow biopsy was suboptimal for evaluation. --Increased lambda light chain restricted monoclonal plasma cells (1.9% by flow cytometry, approximately 6% and aspirate count, but 50% by immunohistochemical stains [id number]). Sideroblastic iron present, negative for ring sideroblasts. Peripheral blood smear with mild red blood cell anisocytosis and polychromasia, leukopenia with absolute neutropenia (1000) and thrombocytopenia (54,000) consistent with prior baseline. Note: I discussed the results with Dr. Crook 01/26/2020. Preliminary findings were also discussed with Dr. Cummings 01/27/2020. Morphologic findings, immunohistochemical stains, flow cytometry, and ancillary studies may under represent the extent and severity of disease. The results of FISH myeloma panelwith prognostic markers and cytogenetic analysis are pending. --Given the patient's hip pain and presence of lytic lesions, she meets clinicalcriteria for activemyeloma. Given her hip pain and lytic lesions in weightbearing areas she was offered radiation therapy. She had a limited courseof hypofractionated palliative therapy to bilateral proximal femurs [address] Ahn. We discussed that given the COVID-19 epidemic and absence of othersignificant changes other than bony lesions (normal renal function, normal calcium, stable cytopenias), I would defer active therapy for myeloma for 4 to 6 weeks. Since she has significant history ofliver disease I will discuss her case with Dr. Piter Benavidez at [facility] malignant hematology for optimal regimen. The patient is not a transplant candidate given her nonalcoholic steatohepatitis and chronic thrombocytopenia but may be a candidate for either doublet therapy (Revlimid/dexamethasone) or triplet therapy with either Velcade/Revlimid/dexamethasone or daratumumab/Revlimid/dexamethasone. --02/03/2020: Mojgan presented unaccompanied for follow-up of bone marrow aspiration and biopsy performed by Dr. 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 The patient had been noting increased left hip pain over the past several months andplain films of the pelvis and bilateral femurs did show subtle lucencies in the bilateral proximal femurs corresponding to PET/CT findings but no other additional sclerotic lesions identified. No pathologic fractures were seen. --03/05/2020: Mojgan notes improvement of bilateral hip pain since radiation. No other changes in medical history in the past month--no infections, normal renal function, no hypercalcemia. Stable platelet counts without bleeding. She was given written literature regarding Dexamethasone, Velcade (that would be dose reduced to 0.7mg/m2 twice weekly), weekly Daratumumab and Revlimid, but I will deferdecision of which regimen to use until discussion in malignant hematology tumor board. Also referring for infusion port placement prior to initiating therapy. Sign informed consent prior to initiating therapy. --Discussed with Dr. Benavidez who favors Daratumumab combination--will request prior liver biopsy and records from [facility] liver clinic. The patient and her son (by telephone) expressed understanding and will follow- up as directed in 2 weeks for consent and likely start of therapy. --04/02/2020: Mojgan presents after infusion port placement at [facility] by interventional radiology due to platelet count 40,000--she had increased bruising at site post procedure, but this has completely resolved. Her hip painis well controlled since completion of palliative radiation and no newareas of pain. She has previously reviewed information regarding Daratumumab (first dosesplit 8mg/kg IV D1,D2, then if well tolerated 16mg/kg IV weekly), Velcade at about 50% dose (for liver dysfunction) 0.7mg/m2 D1,D4,D8, D11, and [id number] IV weekly--repeat for every 3 week cycles 1st 3 cycles. She will take chemo class and likely start therapy within 2 weeks with toxicity visit in 3 weeks. Today we reviewed chemotherapy counseling for Daratumumab, Velcade, and Dexamethasone. Common toxicities were reviewed to include infusion reaction including rash/dyspnea/wheezing, myelosuppression, fatigue, nausea, vomiting, constipation, diarrhea, mouth sores, and alopecia. Other toxicities may in cludepneumonitis, neurologic, thromboembolism, hyperglycemia, hepatic and renal toxicities. The patient signed informed consent and will follow-up as directed. --04/19/2020: Mojgan is here for cycle 1 week 2 daratumumab 16 mg/kg weekly, Velcade 0.7 mg/m? twice weekly for first 2 weeks of every 3-week cycle, and dexamethasone 20 mg weekly. She did have an infusion reaction with first daratumumab with dyspnea and flushing but this improved after first dose and shehas not had recurrent infusion reactions. We have continued Velcade despite platelet counts in the 40,000 range without bleeding as we know that her baseline platelet counts remain in this range and she has not had any significant change from her baseline. Dexamethasone has caused hyperglycemia with blood sugars up to 400 and we are referring to diabetes management clinic. Otherwise she denies any significant nausea, emesis, fever, chills, night sweats, constipation, diarrhea, rash, mouthsores, or alopecia. She has not hadany change of baseline neuropathy. Liver function tests remain stable. She notes that her hip pain is well controlled since prior palliative radiation and she saw radiation oncology earlier this week with no new recommendations. I will send her myeloma labs including serum and urine protein electrophoresis, quantitative immunoglobulins, and serum kappa/lambda light chains in 2 weeks andfollow-up with her in 3 weeks. She may be seen sooner if new issues arise. This is a 67-year-old lady on chronic disability has a history of arthritis, diabetes mellitus, hypertension, COPD, GERD, and fibromyalgia who was previouslyfollowed [facility] for chronic mild to moderate thrombocytopenia. She states that she was followed with Dr. Kumari prior to his senior care and was told that she had an elevated protein level as well as thrombocytopenia but never had clinical bleeding. She is 4 para4 without complicationsand was never told that she was thrombocytopenic while . She is had multiple prior surgicalprocedures without any clinical bleeding. She had been recommended for a pain procedure with Dr. Hiram ibarra he declined to do the procedure because her platelet count was less than 100,000. For this reason she received 2 platelet transfusions, with little improvement of her platelet count and her second transfusion resulted in throat tightening due to allergy to platelets . She has never been treated with steroids and has never been told that she has immune thrombocytopenia. She has mild leukopenia with relative neutropenia, absolute neutrophil count of 400-800 and mild lymphocytosis. Hemoglobin is normal. She has not had any bright red blood per rectum or epistaxis. She has no history of bleeding within the familyhowever does have a mother and sister diagnosed with colon cancer, a brotherdiagnosed with lung cancer, and another sister diagnosed with breast cancer. She had prior pain in the right hand mainly at the first MCP joint with some associated swelling and right foot pain and was evaluated by podiatry. She was told that her blood tests were negative forgout. She had screening with MALLORY, CCP, and rheumatoid factor all of which were negative. She says that she previously saw Dr. Petersen for cirrhosis but did not know of any specific therapy. We reviewed these findings from her liver ultrasound ordered by Dr. Benavidez Summer 2016. Initial consultation with me March 16, 2017. --The patient has been followed by me for some time for diagnosis of smoldering myeloma with a prior bone marrow biopsy May 2017 showing 15% plasma cells but the patient remained asymptomatic without bone pain or other CRAB criteria for therapy. She is also noted to have an ascending aortic aneurysm and has chronicliver disease with cirrhosis secondary to nonalcoholic steatohepatitis. She haschronic thrombocytopenia without bleeding ranging from 50-100,000 this is felt to be due to sequestration from her nonalcoholic steatohepatitis. She was previously on a liver transplant list but was recently notified that she is no longer a candidate for liver transplant. She has had chronic pain from f ibromyalgia but noted increasing bilateral hip and upper thigh pain over the last 6 months. She also is followed for EGD/colonoscopy with last documented procedure 09/21/2018: 1. Normal EGD, 2. Mild sigmoid diverticulosis, 3. Internal hemorrhoids, grade 2, 4. Anal fissure with active bleeding cauterized by bipolar cautery Bone osseous survey in June 2019 showed osteopenia and degenerative changes but no lytic or blastic lesion. Patient had an F-18 PET scan 01/02/2020 which showed multiple areas of involvementof bones with increased SUV activity. She was contacted with these results by phone and I recommended bone marrow aspirate and biopsy for assessment and analysis. Her prior labs were reviewed. Her SPEP does not show anymonoclonal gammopathy. On VAHID there appears to be a trace of monoclonal gammopathy. Free light chain ratio is less than 100. There is no evidence of renal sufficiency. Patient is not anemic. She doeshave some abnormal areas on bone scan. - Summary of Therapies Summary of Therapies: 1. 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 2. She underwent a single dose of palliative radiation therapy to bilateral hips, receiving 800 cGyto right and left hip in 1 fraction in separate vaz (with a single isocenter). The treatments were given with AP/PA vaz [id number] MV photons and MLC blocks. 3. Deferred active therapy for myeloma 2 months given COVID-19 epidemic with increased risk of myelosuppression and viral transmission of contacts. --Follow-up 03/05/2020 I discussed her case with Dr. Piter Benavidez at malignant hematology. --Given her significant hepatic dysfunction, I presented her case at malignant hematology tumor board to discuss optimal therapy. 4. Cycle 1 day 1 04/10/2020: Dose reduced Velcade 0.7 mg/m? twice weekly (day 1,day 4, day 8, day 11)every 3 weeks with dexamethasone 20 mg weekly and daratumumab 16 mg/kg weekly of each 21-day cycle.After first week, Velcade decreased to 0.7mg sq weekly due to thrombocytopenia. --We will need to watch liver function, platelet count, and neuropathy closely on Velcade. 5. Cycle 9 day 1 10/02/2020: Daratumumab 16mg/kg once monthly maintenance therapy until progression. 6. 07/31/2021: Palliative radiation therapy to right supra chondral/soft tissuearea of hip which is PET positive. She received a dose of 3000 cGy in 10 fractions from 07/31/2021 to 08/15/2021 over 15 elapsed days 7. 08/30/2021: Right hip pain improved after radiation. Due to disease progression with persistent cytopenias, changed to repeat loading doses of daratumumab 16 mg/kg weekly for cycles 1 through 3 with Revlimid 5 mg daily for 3 weeks on 1 week off. Held Revlimid second week due to neutropenia with sinus infection, resumed 3 days ago (09/17/2021). Referred for CAR-T therapy evaluation. 8. 12/18/2021: Daratumumab is now 16 mg/kg every 2 weeks with Revlimid 5 mg daily for 2 weeks on 2 weeks off due to neutropenia and thrombocytopenia. Stillpending evaluation for CAR-T therapy. 9. 01/22/2022: Patient is not deemed a candidate for stem cell transplant or CAR- T therapy at this time. Discussed changing from current Revlimid to pomalidomide with continued daratumumab 16 mg/kg every 2 weeks. Plan change in therapy in 1 month. 10. 02/19/2022: Continue daratumumab 16 mg/kg IV every 2 weeks and changed to pomalidomide now 3 mg daily days 1 through 21 of each 28-day cycle (lower dose due to baseline liver dysfunction) -- 03/19/2022: Patient was noted to tolerate Pomalyst only 1 week (03/05- 03/13/2022)due to grade 3 rash. This resolved after stopping medication 1 week later. 1 dose level reduction Pomalyst to 2 mg daily days 1 through 21 of each 28-day cycle. Also holding daratumumab daily for platelet count of 41,000 and will resume at full dose with first dose of Pomalyst. -- 04/09/2022: Platelet 40,000 without bleeding. Will continue monthly Daratumumab with change of Pomalyst to 2mg D1-14 each 28 day cycle (off 2 weeks due to low platelets). Rising lambda light chains,unable to tolerate Pomalyst due to cytopenias, stopped mid 07/2022. 11. 07/18/2022: carfilzomib (dose 20mg/m2 day one then 27mg/m2 D8, D15) with cyclophosphamide 300mg IV weekly and weekly dexamethasone. Baseline echocardiogram EF 60-65%. We will follow closely for her chronic cytopenias andliver dysfunction. -- 10/29/2022: Regimen on hold for past 2 weeks due to cytopenias. Today with ANC 400, holding another week and will reduce dose of carfilzomib to 20mg/m2 IV weekly with cyclophosphamide 300-->240mg/m2 IV weekly, continue weekly dexamethasone. -- 11/26/2022: ANC 700, Platelets 40,000. Continue carfilzomib 20mg/m2 IV weekly with cyclophosphamide 300-->240-->180mg/m2 IV weekly, continue weekly dexamethasone. -- Carfilzomib/cyclophosphamide on hold since 12/04/2022 due to cytopenias, pending evaluation by for bispecific antibody therapy. --01/09/2023: Improving cytopenias ANC 900, platelets 68,000. --02/18/2023: Still on hold since 12/04/2022 (if resumed will give carfilzomib 20mg/m2 IV weekly with cyclophosphamide 300-->120mg/m2 IV weekly ROS Details: All systems reviewed & no additional complaints except as documented Subjective/ROS - Narrative: Constitutional: No Chills, No Diaphoresis, Stable Fatigue, No Fever, No Malaise, No Night Sweats, No Weakness, No Weight Gain, No Weight Loss Gastrointestinal: No Abdominal Pain, No Black Stool, No Bloating, No Bloody Stool, positive for constipation, No Diarrhea, No Dysphagia, No Hematemesis, No Nausea, No Postprandial Pain, No Rectal Bleeding, No Rectal Pain, No Vomiting, Other (chronic gastroesophageal reflux stable) --No jaundice or ascites but patient has longstanding nonalcoholic steatohepatitis with cirrhosis, previously followed by [facility] gastroenterology. Cardiovascular: No Chest Pain, No Edema, No Palpitations, No Syncope Genitourinary: No Discharge, No Dysuria, No Flank Pain, Frequency (chronic andunchanged), Resolved Hematuria, No Incontinence, No Nocturia, No Urgency, No Urinary Retention Musculoskeletal: + left shoulder and neck pain as per HPI (no thoracic cord compression). Recent worsening right hip/thigh pain; positive for intermittent lumbar back pain, No Chest Wall Tenderness, Improvement of prior Joint Pain, Muscle Stiffness, Myalgia (history of fibromyalgia), --unremarkable skeletal survey June 2019. 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 12/2020: F-18 PET/CT stable. 04/2021 F-18 PET/CT stable. Right hip pain mildly improved after palliative radiation. 04/30/2022 repeat Axumin F-18 PET/CT stablefrom 1 year ago. HEENT: + frontal headache and sinus tenderness/congestion--improved. No Blurred Vision, No Discharge, No Ear Pain, No Epistaxis, No Sore Throat --patient was seen in emergency department November 2019 with persistent epistaxis. She was treated with nasal clip and packing and was advised to continue Afrin. No recurrent bleeding. 2 courses of antibiotics in Aug-Sep 2021 for recurrent sinusitis. 11/30/2022: Polyp only on CT (no air-fluid level). 12/26/22: Augmentin 2 week course and hold chemo. Respiratory: No Cough, No Hemoptysis, mild Shortness of Breath (chronic and unchanged due to COPD),No Sputum, No Wheezing--shortness of breath with daratumumab reaction dose 1 04/10/2020 (given a split dose over 2 days). No recurrent reaction since first dose. Neurological: No Dizziness, Stable Numbness/Tingling (reports long-standing bilateral foot numbness--unchanged since starting low-dose Velcade 04/10/2020), NoPre-existing Deficit (no history of stroke or seizure), intermittent headache Hematologic/Lymphatic: No significant bleeding thrombocytopenia from sequestration/myeloma disease,Bruises Easily, No Enlarged Lymph Nodes, Other (reports allergy to prior platelet transfusion) Endocrine: Excessive Sweating (hot flashes, postmenopausal) Flushing, No Intolerance to Cold, Intolerance to Heat Psychiatric: No Depressed Mood, No Insomnia Integumentary: No Jaundice, No Lesions, positive for diffuse rash on Pomalyst 3mg daily as per HPI.1 level dose reduction to 2 mg daily with only mild rash/pruritus. Due to cytopenias Pomalyst is reduced to 2 mg twice weekly on Mondays and . Stopped Pomalyst in Jul 2022--no recurrent rash. Allergic/Immunology: Previous pruritus with Pomalyst rash resolved off Pomalyst. PMFSH - History Attestation statement: The following information was validated with the patient. Source: Old Records Reviewed - Medical History Medical History: Medical History (Last Reviewed 02/18/23 @ 19:32 by Fabiola Marinelli MD) Aortic aneurysm COPD (chronic obstructive pulmonary disease) Diabetes Fibromyalgia GERD (gastroesophageal reflux disease) Hypertension Iron deficiency Multiple myeloma Neutropenia Smoldering multiple myeloma (SMM) Smoldering myeloma Temporary low platelet count - Surgical History Surgical History: Surgical History (Last Reviewed 02/18/23 @ 19:32 by Fabiola Marinelli MD) H/O: hysterectomy History of appendectomy History of cholecystectomy - Family History Family History: Family History (Last Reviewed 02/18/23 @ 19:32 by Fabiola Marinelli MD) Other COPD (chronic obstructive pulmonary disease) - Social History Smoking Status: Former smoker Tobacco Type: cigarettes Substance Use Type: None Social History Comments: Lives with son a juli Home Medications & Allergies Allergies erythromycin base [From E-Mycin] Allergy (Verified 02/18/23 09:32) Hives latex Allergy (Verified 02/18/23 09:32) Unknown Reaction moxifloxacin [From Avelox] Allergy (Verified 02/18/23 09:32) Hives Quinolones Allergy (Verified 02/18/23 09:32) Unknown Reaction tetracycline Allergy (Verified 02/18/23 09:32) Unknown Reaction Home Medications carvedilol 12.5 mg tablet 12.5 mg PO BID 11/20/17 [History Confirmed 02/18/23] duloxetine 60 mg capsule,delayed release 60 mg PO DAILY 11/20/17 [History Confirmed 02/18/23] insulin detemir U-100 100 unit/mL (3 mL) subcutaneous pen 22 units subcut DAILY PRN Hyperglycemia 11/20/17 [History Confirmed 02/18/23] oxycodone 10 mg tablet 10 mg PO BID PRN Pain 11/20/17 [History Confirmed 02/18/23] albuterol sulfate 90 mcg/actuation aerosol inhaler 2 puff inhalation Q6H PRN Shortness Of Breath 11/24/17 [History Confirmed 02/18/23] omeprazole magnesium 20 mg tablet,delayed release (Prilosec OTC) 40 mg PO DAILY 11/24/17 [History Confirmed 02/18/23] metformin 500 mg tablet,extended release 24 hr 500 mg PO BID 03/05/20 [History Confirmed 02/18/23] semaglutide 0.25 mg or 0.5 mg (2 mg/1.5 mL) subcutaneous pen injector (Ozempic) 1 mg subcut QWEEK 09/24/20 [History Confirmed 02/18/23] vitamin B12 0.5 mg-folic acid 1 mg tablet 1 tab PO DAILY 03/28/21 [History Confirmed 02/18/23] lactulose 20 gram/30 mL oral solution 20 g (30 mL) PO BID PRN Constipation #600 mL 04/09/22 [Rx Confirmed 02/18/23] acyclovir 400 mg tablet 400 mg PO BID 90 days #180 tabs 09/24/22 [Rx Confirmed 02/18/23] potassium chloride 10 mEq capsule,extended release 10 meq PO DAILY #30 caps 11/18/22 [Rx Confirmed 02/18/23] loratadine 10 mg tablet (Claritin) 10 mg PO DAILY 12/26/22 [History Confirmed 02/18/23] atorvastatin 80 mg tablet 80 mg PO DAILY 01/28/23 [History Confirmed 02/18/23] cyanocobalamin (vitamin B-12) 1,000 mcg sublingual tablet 1,000 mcg sublingual DAILY 01/28/23 [History Confirmed 02/18/23] dexamethasone 4 mg tablet 20 mg PO DIRECTED PRN Systemic Signs And Symptoms 01/28/23 [History Confirmed 02/18/23] fluticasone propionate 50 mcg/actuation nasal spray,suspension 1 spray intranasal DAILY PRN AllergySymptoms 01/28/23 [History Confirmed 02/18/23] insulin aspart U-100 100 unit/mL (3 mL) subcutaneous pen (Novolog FlexPen U-100 Insulin aspart) 25 unit subcut DAILY PRN Hyperglycemia 01/28/23 [History Confirmed 02/18/23] lisinopril 5 mg tablet 5 mg PO DAILY 01/28/23 [History Confirmed 02/18/23] phenazopyridine 100 mg tablet 200 mg PO TID PRN Pain #30 tabs 01/29/23 [Rx Confirmed 02/18/23] ondansetron 8 mg disintegrating tablet 8 mg PO TID PRN Nausea #30 tabs 02/10/23 [Rx Confirmed 02/18/23] Objective - Height/Weight Height/Weight: Height 5 ft 2.99 in Weight 82.554 kg BSA for Today's Weight 1.93 - Vital Signs Vital Signs: 02/18/23 09:33 Temperature 97.8 F Pulse Rate [Left Brachial] 82 Respiratory Rate 16 Blood Pressure [Right Arm] 127/80 02 Sat by Pulse Oximetry 98 Oxygen Delivery Method Room Air - Pain Generalized Pain Intensity: 3 Bilateral Hip Pain Intensity: 5 Left Hip Pain Intensity: 4 Lower Back Pain Intensity: 7 Left Neck Pain Intensity: 4 Back Pain Intensity: 0 Right Thigh Pain Intensity: 3 Bilateral Leg Pain Intensity: 5 Generalized Head Pain Intensity: 4 Bilateral Shoulder Pain Intensity: 6 Left index finger Pain Intensity: 4 - Distress Screening Distress Screen Results: RN Distress Screening Start: 02/07/20 10:17 Freq: Status: Complete Protocol: Document 05/01/20 09:33 DB (Rec: 05/01/20 09:33 DB [id number]) Distress Screening Distress Score: 0 No worry/distress Distress Screening Total 0 RN Distress Screening Start: 07/26/21 12:37 Freq: Status: Active Protocol: Document 12/26/22 09:44 LB (Rec: 12/26/22 09:44 LB [id number]) Distress Screening Distress Score: 7 Physical Concerns Feeling tired or a lack of energy,Trouble Sleeping Emotional Concerns Loss of interest in usual activities Distress Screening Total 7 Distress score of 4 or more discussed No with patient? Distress screening follow up: defer to patient navigator Physical Exam Narrative: Patient is alert and oriented x3. HEAD / FACE: Normocephalic. No tenderness to palpation over scalp, no sinus tenderness to palpation. EYES: Pupils are equal and reactive to light. Conjunctivae and lids are benign in appearance. Ocular movement intact. EARS: Hearing grossly intact. NOSE / MOUTH / THROAT: No frontal/maxillary sinus tenderness. No oral thrush oraphthous ulcerations. NECK / THYROID: No cervical adenopathy on exam. Thyroid is symmetrical, withoutthyromegaly, masses or palpable nodules. RESPIRATORY: Normal inspection. Lungs clear to auscultation and percussion. No wheezing, rales, rhonchi or rubs. Normal effort. CARDIOVASCULAR: Regular rate and rhythm. No murmurs, gallops, or rubs. ABDOMEN: Bowel sounds normoactive. Soft, nontender and non-distended. No hepatosplenomegaly. No masses. INTEGUMENTARY: The skin is unremarkable. No suspicious lesions or rash. No bruising or petechiae noted. MUSCULOSKELETAL: Normal musculature, normal ROM upper and lower extremities, no crepitus. EXTREMITIES: No leg edema. No cyanosis or clubbing. NEUROLOGICAL: Alert and oriented. Cranial nerves intact. No gross motor or sensory deficits, patient ambulates unassisted. PSYCHIATRIC: No anxiety or evidence of depression. - ECOG Performance Status ECOG Score: 1 Results - Labs Labs: Diagram of Most Recent CBC and CMP 02/17/23 10:20 02/17/23 10:20 Labs - Last 7 Days 02/17/23 10:20: PHA Creatinine Clear 70.06, Sodium 140, Potassium 3.7, Chloride 106, Carbon Vfjcszk03.9, Anion Gap 8.8, BUN 13, Creatinine 0.45 L, Est GFR (CKD- EPI) > 60.0, Glucose 113 H, Calcium8.7, Total Bilirubin 1.2 H, AST 24, ALT17, Alkaline Phosphatase 88, Total Protein 5.7 L, Albumin 3.6, Globulin 2.1, Albumin/Globulin Ratio 1.7 02/17/23 10:20: Corrected WBC 1.7 L, Uncorrected WBC Count 1.7 L, RBC 3.36 L, Hgb 11.3 L, Hct 33.1 L, MCV 98.4, MCH 33.5, MCHC 34.1, RDW 14.6, Plt Count 35 L*, MPV 7.9, Neut % (Auto) N/A, Lymph % (Auto) N/A, Hodgeman % (Auto) N/A, Eos % (Auto) N/A, Baso % (Auto) N/A, Nucleat RBC Rel Count N/A, Neut # (Auto) N/A, Lymph # (Auto) N/A, Hodgeman # (Auto) N/A, Eos # (Auto) N/A, Baso # (Auto) N/A, Lymphocytes %20, Monocytes % 4, Eosinophils % 4 H, Segmented Neutrophils 66, Other Cell Type 7 H, Platelet Estimate Decreased, Plt Morphology Comment Normal,RBC Morphology N/A, Polychromasia Slight, Poikilocytosis Slight, Ovalocytes Slight 02/11/23 09:20: PHA Creatinine Clear 70.06, Sodium 141, Potassium 3.8, Chloride 105, Carbon Sxcrdmq04.8, Anion Gap 10.0, BUN 14, Creatinine 0.45 L, Est GFR (CKD-EPI) > 60.0, Glucose 130 H, Calcium 8.9, Total Bilirubin 1.1 H, AST 28, ALT20, Alkaline Phosphatase 105 H, Total Protein 5.5 L, Albumin 3.4 L, Globulin 2.1, Albumin/Globulin Ratio 1.6 02/11/23 09:20: Corrected WBC 1.2 L, Uncorrected WBC Count 1.2 L, RBC 3.14 L, Hgb 10.6 L, Hct 31.0 L, MCV 98.9, MCH 33.7, MCHC 34.1, RDW 14.3, Plt Count 29 L*, MPV 9.1, Neut % (Auto) 53.5, Lymph % (Auto) 30.6, Hodgeman % (Auto) 11.2, Eos % (Auto) 4.4, Baso % (Auto) 0.3, Nucleat RBC Rel Count 0.0, Neut # (Auto) 0.6 L, Lymph # (Auto) 0.4 L, Hodgeman # (Auto) 0.1, Eos # (Auto) 0.1, Baso # (Auto) 0.0, Platelet Estimate Decreased, Plt Morphology Comment Normal, RBC Morphology N/A, Polychromasia Slight, Hypochromasia Slight, Poikilocytosis Slight, Anisocytosis Slight, Tear Drop Cells Slight, Ovalocytes Slight - Impressions RIGHT HIP - 2 views: Right femur [...] SWELLING... Impression dictated by: Carroll Sparrow Jr., D.OErna02/18/2023 4:33 PM F-18 PET/CT pending to evaluate for progression Assessment and Plan - TNM Staging Staging: Stage IIIA Multiple Myeloma (Durie Boring criteria) (1) Multiple myeloma Qualifiers: Multiple myeloma remission status: not in remission Qualified Code(s): C90.00 - Multiple myeloma not having achieved remission Mojgan 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 She has high risk cytogenetics and I [facility]. Her persistent thrombocytopenia made her ineligible for any clinical trials, and preventedher from receiving local pain procedures given her chronic low back pain. --05/2017 PET/CT images and reports performed for staging to exclude bone involvement with myeloma. 2 indeterminate areas of uptake thought to be degenerativearthritis vs early bone findings of myeloma (right [...] showed no lytic lesions and she has stableshoulder, hand, and right SI joint pain (although likely due to fibromyalgia. --Prior osseous survey 07/01/2019 showed osteopenia but no compression fractures or lytic lesions were identified. She had no significant change in myeloma labs(mild increase of urine M-spike, kappa/lambda ratio, and normal serum M- spike and quant immunoglobulins). Urine protein still undetectable, therefore will continue surveillance every 6 months with the same labs--no hypercalcemia, renaldysfunction (or proteinuria), anemia, or new bone symptoms. [...] proteins with urine M spike 43.1 but totalprotein 34.4, with no reported urine creatinine. --We deferred immunosuppressive chemotherapy for about 1 month due to control ofsymptoms after palliative radiation and concern of potential peak of COVID-19 inlate January early March. --She presented for follow-up 03/05/2020 and we discussed potential therapy options (with son available by phone). --I discussed her case with Dr. Piter Benavidez of malignant hematology, possibly presenting the patient in hematology tumor board at [facility]. --Infusion port placed 03/22/2020 at [facility] due to low platelets. No complications. --03/12/2020: Myeloma labs with no serum M-spike, + urine M spike 22.2mg/24h (14%). Immunofixation IgA lambda specificity. IgA normal 227, Serum kappa 20.6, serum lambda 516.7, Free kappa/lambda ratio0.04. Normal renal function and calcium. Lower ANC 600 and platelets 40,000 --04/10/2020: Started cycle 1 day 1 of weekly dexamethasone 20 mg IV (careful to watch blood sugars with diabetes and known hepatic dysfunction), decreased dose of bortezomib 0.7 mg/m? twice weekly for2 weeks on 1 week off (due to known liver disease and thrombocytopenia), and daratumumab 8mg/kg D1,D2 IV first week,then 16 mg/kg IV weekly and we may consider Revlimid as a 4th medication if needed (deferred for worsening neutropenia and thrombocytopenia--I am reluctant to add this therapy initially). --------- --01/21/2021: One year f/u F18 PET/CT with stable FDG avidity, monoclonal labs (SPEP, Quant Igs, kappa/lambda ratio) all pending. Stable CBC and CMP. Persistent pain left hand 2nd MCP joint--increaseduptake on PET/CT but no lesion on left hand xray from 11/2020. Sending for ortho evaluation. For nowcontinue once monthly Daratumumab. F/u with myeloma labs and exam in 2 months, sooner prn. --05/24/2021: Bone marrow biopsy does not show significant progression although poor prognosis mutation 1q with 13q on FISH. Hypocellular with recent worseningplatelets without bleeding--will recheck B12, folate, and ferritin. [...] sent for plain films of the hip femurand knee showing degenerative changes but no acute [...] progression although she still has slow rise inlambda light chain and platelet count remains in [...] check. She will sign Revlimid consent Thursday. Sheis in agreement with this plan. --09/20/2021: Started daratumumab loading doses weekly with Revlimid on 09/04/2021. Held therapy forANC 900 and platelet 42,000 with sinus infection, now resolved and resumed Revlimid 5mg daily on 09/17. Will continue therapy as prescribed with weekly CBC and hold Revlimid as needed for cytopenias.Evaluation for CAR[facility]T therapy at [facility]. Send myeloma labs and skeletal survey [...] current cycle of Revlimid with change to pomalidomide4 mg daily, follow weekly CBCs after change in therapy and determine optimal dose based on symptomsand cytopenias. Patient is in agreement with this plan. Next follow-up with me in 1 month and we will defer next light chain analysis until 1month after change in therapy. --02/19/2022: Continued rise in lambda light chains and worsening thrombocytopenia. Today we reviewed informed consent for adding pomalidomide 3 mg daily days 1 through 21 every 28 cycle 2 every otherweek daratumumab. We are dropping Revlimid due to [...] initial cycle was only given 03/05-03/13/2022. Now yamile has complete resolution of symptoms she may resume pomalidomide at 1 dose level reduction 2 mg daily for days 1 through 21 of each 28-day cycle. We are also holding her daratumumab today due to declining her platelet count 41,000 without bleeding. Repeat kappa/lambda light chain ratio was increased 80 on 4but this was her first dose of pomalidomide. Plan anticipate arrival of pomalidomide within the next 1 to 2 weeks and she may resume daratumumab on day1 of therapy. Her next follow-up will be [...] for following myeloma show normal mild increase herfree lambda from 87 to 106, kappa/lambda ratio decreased 0.10-0.09. I will give her 1 more month ofpomalidomide with daratumumab and dexamethasone. The pomalidomide dose will be changed to 2 mg p.o.days 1 through 14, off days 15 through [...] bony lesions. Her kappa/lambda light chain ratio remainsrelatively stable since early March (0.09-0.11) with free lambda light chainsnow relatively stable (106-109). I advised continuing her current regimen and reevaluating with kappa/lambda light chain ratio in 2 months. Continue current dosing and close observation due to platelet count 48,000. No signs or symptomsof infection. Patient is in agreement with this plan. --07/10/2022: Mojgan has no new symptoms, but continued cytopenias with 2 weeks of pomalidomide helddue to recurrent neutropenia and persistent thrombocytopenia (40-50,000). Continued uptrending lambda light chains consistent with progression of myeloma. We did discuss bone marrow biopsy, but this would not policy change clerk, therefore we will give Pomalyst (now decreasedto 2mg Thursday and only) with last dose Daratumumab tomorrow. 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 --09/17/2022: Mojgan is here for cycle 3 of modified CYKLONE regimen. She continues to do ok with only mild fatigue, no other new complaints or s/s of infection. She is ok to treat per discussion with Dr. Marinelli despite low WBC, ANCand platelets. She will follow-up in 3 weeks [...] CBC, CMP, SPEP, VAHID, immunoglobulins, and FLC. Sheis in agreement with this plan and has no questions. --10/29/2022: Stable symptoms on current therapy. Recent viral infection with worsening cytopenias.She has been off weekly therapy for the last 2 weeks due to cytopenias, therefore we will hold 1 further week and if her blood counts meet parameters, she will have dose reduced Carfilzomib 27-->20mg/m2 IV weekly, Cyclophosphamide 300-->240mg/m2 IV weekly, and Dexamethasone 20mg IV/po weekly. She is overdue for echo which was ordered today and we will check results beforeresuming therapy. Next follow-up with me in 6 weeks or sooner as needed. [place]/lambda light chains were reviewed and doshow partial response over the last 3 months. We will continue to follow at least every 2 to 3 months while ontherapy. . No longer a candidate for Blenrep--access removed by FDA for limitedefficacy. Moderate complexity 35 minute followup visit. --11/26/2022: No new symptoms with ongoing response of lambda light chains but persistent cytopenias. In absence of new symptoms of infection or bleeding, we will continue therapy with further dose reduction of cyclophosphamide to 180mg/m2 IV weekly with stable dose Kyprolis 20mg/m2 IV weekly and Dex amethasone. Discussed with Dr. Benavidez at --he would support holding therapy and observationif persistent cytopenias and consider bone marrow biopsy. For now will continuemonthly followup and myelomalabs every 1-2 months. She may be a [...] persistent cytopenias and sinusitis. She now has [id number] and platelets 37,000 without bleeding. Relatively stable lambda light chains in 40s range. I will hold therapy another 2 weeks, give Augmentin 875mg bid x 2 weeks for persistent sinusitis (no airfluid levels on CT scan), and send referral to Dr. Benavidez for possible CD3/BCMA bispecific antibody therapy (risk of cytokine release syndromewith first dose, requires inpatient observation at a [...] first week due to risk of cytokine releasesyndrome). Nextfollowup with myeloma labs in 2 months, sooner prn. 30 minute moderate complexity followup. --02/18/2023: No active therapy since 12/04/2022--platelets have not improved. Continued uptrending kappa light chains (now 60s range). 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 Worsening right hip/leg pain--repeat PET/CT to determine if bony progression (plain film without obviouslytic lesion right hip/femur). Will set up IR guided bone marrow biopsy to evalwhether persistent cytopenias due to progression vs. therapy related MDS. Hold Kyprolis/Cytoxan and if no progression or MDS on bone marrow biopsy, we will resume lower dose Cyclophosphamide 120mg/m2 IV weekly,Kyprolis 20mg/m2 IV weekly, and Dexamethasone 20mg weekly. Moderate complexity 35 min. (2) Chemotherapy-induced neutropenia ANC 700. Previously held therapy one week and resumed Kyprolis and cyclophosphamide at 20% DR as noted above. At 11/26/2022 followup, maintained current Kyprolis dose and dose reduce cyclophosphamide another 20% to 180mg/m2 weekly. --Chemo remains on hold since 12/04/2022 (last dose) due to sinusitis with recurrent neutropenia. Plan to resume with cytoxan dose reduction (defer until after bone marrow biopsy). Had IVIG due to hospitalization for urosepsis--current ANC 600 without signs/symptoms of infection. 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 I previously reviewed her outpatient records from [facility], including review of notes, laboratories, and prior bone marrow biopsy 13 years ago. 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 Most recent platelet count is relatively stable at 54,000 but no clinical bleeding. She waspreviously referred to weight reduction clinic and may have slow improvement of steatohepatitis with lifestyle modification. Unless she has active bleeding or planned surgery, we will continue observation during treatment of active myelomato commence next month as noted above. --Agree with recommendation for EGD surveillance for varices (last was 09/2018--negative). This will be deferred during current COVID-19 epidemic. --Prior vitamin B12 and folic acid are normal, for known history of neuropathy. As noted above, I reviewed the negative M spike on serum protein electrophoresiswith immunofixation, but positive for Bence Murray protein on urine protein electrophoresis. Her Quantitative immunoglobulins IgG, IgA, and I gM were all within normal limits, however her serum kappa lambda light chain analysis showeda predominance of lambda light chains. --Previous labs for lupus anticoagulant with DRVVT, hexagonal phase phospholipid, anti-cardiolipin IgG and IgA, and beta 2 glycoprotein IgG and IgA were within normal limits. --Evaluated in ED November 2019 for epistaxis which resolved. Platelet count wasstable at 12/28/2019 follow-up. She continues surveillance with liver clinic at [facility] and I will continue to follow her every 6 months, sooner if newbleeding issues arise. --04/02/2020: We reviewed informed consent for Daratumumab/Velcade/Dexamethasone for active myeloma therapy. I requested prior liver biopsy results and notes from liver clinic at [facility]. Platelet count in 40,000 range but patient has had no active bleeding following infusion port placement 03/22/2020. --08/13/2020: Cycle 6 week 2 toxicity check with improved thrombocytopenia 79,000 range with no bleeding. We will continue current dosing with Velcade 0.7mg/m2 sq (now once weekly), dexamethasone 20 mg weekly, and full dose daratumumab with close follow-up of liver function and platelet counts. --09/24/2020, 01/21/2021, 03/28/2021: Platelets stable 60-70,000 with no new toxicities, started Daratumumab maintenance 10/02/2020. --04/24/2021: Platelets now down to 57,000 with rising lambda light chains. Will eval with repeat bone marrow biopsy due to nonsecretory myeloma. --05/24/2021: Bone marrow hypocellular without significant myeloma progression. Normal B12/folate stores, continue Daratumumab maintenance. --08/16/2021: Persistent thrombocytopenia in 50,000 range, consider change in therapy due to risinglambda light chains. Will check echo and review case withDr. Benavidez at to discuss next line of therapy. --08/30/2021: Stable platelets--decision to resume weekly Daratumumab 16mg first 3 cycles and change to Revlimid 5mg daily 1-21 each 28 day cycle--titrate as tolerated --09/20/2021: Platelets have declined to 40-50,000 range without mucosal bleeding. Held Revlimid atplatelets 42,000 during sinus infection, resumed after one week off. Will follow weekly CBCs on Daratumumab/Revlimid. --12/18/2021, 01/22/2022: Platelets still in the 50,000 range without mucosal bleeding. Current dosing of daratumumab every 2 weeks and Revlimid 5 mg daily 2weeks on 2 weeks off--plan to change to pomalidomide 3 mg daily next cycle. -- 02/19/2022: Last week platelets were 48,000 and we held Revlimid. This week platelets 58,000 but continuing to hold Revlimid due to change to daratumumab 16mg/kg IV every 2 weeks with pomalidomide 3 mg daily days 1 through 21 every 28-day cycle -- 03/19/2022: Platelets were down to 41,000 and we held daratumumab as well as Pomalyst for rash asnoted above. Resume Pomalyst at 2 mg days 1 through 21 every 28 days. Continue daratumumab 16 mg/kgevery 2 weeks. -- 04/09/2022: Platelets down to 40,000. Okay to give daratumumab 16 mg/kg IV every 2 weeks but Pomalyst dose will be changed to 2 mg days 1 through 14 every 28 days. Follow-up 1 month. -- 05/07/2022: Platelets 48,000. Continue monthly daratumumab 16mg/kg IV with same Pomalyst dose 2mg daily D1-14 every 28 days. Extend next follow-up with kappa/lambda light chain ratio to 2 months. --07/10/2022: Platelets 53,000 with ANC now 600 (held Pomalyst one week for ANC 300). May have one dose Pomalyst today, then hold for change in therapy. Will have platelet transfusion as needed for change in therapy to Kyprolis/Cytoxan/Deamethasone. --08/20/2022: Platelets declined to mid 30,000 range about 4 weeks ago--now up to 56,000 and WBC 1600 and ANC 1000 on Kyprolis/Cytoxan/Deamethasone. No activebleeding. Continue current dosing and f/uin 3 weeks. --09/17/2022: Platelets at 43,000 without recent transfusion. WBC and ANC at 1.4and 600 respectively. Will continue with treatment. --10/15/2022: Platelets at 49,000. No s/s of bleeding. Ok for treatment. --10/29/2022: Platelets at 31,000 with ANC 400. Dose reductions recommended asnoted above. No active bleeding. Follow-up 6 weeks. --11/26/2022: Platelets at 40,000 with ANC 700. Dose reduction cyclophosphamideonly as noted above. No active bleeding. Follow-up 4 weeks. --No chemo since 12/04/2022. Platelets 37,000-->68,000. --02/18/2023: Platelets still 35,000. Sending for IR guided bone marrow biopsy. Will continue to hold chemotherapy until bone marrow biopsy review in 3 week. We may resume with cytoxan dose reduction if no progression or MDS. She may be a future candidate for bispecific antibodies for multiple myeloma. Still has nobleeding. (4) Cancer-related pain Improved symptoms after palliative radiation to bilateral hips--one dose 02/07/2020. Will continue tofollow on myeloma chemotherapy. Extensive, but stable bone involvement on F-18 PET/CT 12/2020 and 04/2021. Recent increased leftneck and shoulder pain. Increased oxycodone dosing to three times daily, no unusual right hip pain is noted above--followed by palliative medicine. -Completed right hip radiation with persistent but improved pain--no new pain issues with follow-upvisit with radiation in early March 2022, follow-up as needed. Will continue to follow with palliative medicine. --02/18/2023: Worsening right hip pain--pending PET/CT for restaging as noted above, f/u 3 weeks. 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 She wasref[facility] to [facility] to attempt weight reduction through diet and exercise that may prevent further fatty infiltration that may further impairher liver function. [facility] hepatology discussed liver transplant but sheis likely no longer a candidate for this given active myeloma. We chose least hepatotoxic regimen for treatment of her active myeloma with 50% dose reduction of Velcade. Liver function remained stable since start of therapy 04/10/2020. --Requested prior liver biopsy and [facility] liver clinic records. Dose reduction 20% Kyprolis due to KAPADIA with cirrhosis (normal bilirubin and transaminases). Stable LFTs on current Kyprolis/Cytoxan/Dexamethasone therapy (on hold since 12/04/2022). (6) Encounter for chemotherapy management Initial Daratumumab maintenance tolerated well without significant toxicities. Bone marrow biopsy did not reveal indication for change in therapy. --09/04/2021: Repeat loading with weekly Daratumumab 16mg first 3 cycles and changed to Revlimid 5mgdaily 1-21 each 28 day cycle--02/19/2022 reviewed informed consent to change to pomalidomide next cycle. --03/19/2022. Pomalyst was stopped after 1 week of therapy on 03/13/2022. Daratumumab held 03/19/2022 due to platelet count 41,000. We resumed both medications on arrival of dose reduce Pomalyst 2 mg days 1 through 21 every 28- day cycle. -- 04/09/2022: Daratumumab is monthly maintenance. Mid July: last dose Pomalyst 2mg today with ANC 600. -- 07/30/2022: Changed chemo to Kyprolis/Cytoxan, normal baseline Echo. -- 10/29/2022: Dose reductions for cytopenias Carfilzomib 27-->20mg/m2 IV weekly, Cyclophosphamide 300--240mg/m2 IV weekly, and Dexamethasone 20mg IV/po weekly. Will continue every 3 week therapy until progression or intolerable toxicity. --11/26/2022: Platelets at 31,000 with ANC 400. Dose reductions Carfilzomib 27-->20mg/m2 IV weekly, Cyclophosphamide 300--240-->180mg/m2 IV weekly, and Dexamethasone 20mg IV/po weekly. Therapy on hold since 12/04/2022 for cytopenias and sinusitis. Continue to hold 02/18/2023 pending bone marrow biopsy. - Chemo Plan Chemo Plan (Dose, Rate, Freq): Carfilzomib 27-->20mg/m2 IV weekly, Cyclophosphamide 300--240-->180mg/m2 IV weekly, and Dexamethasone 20mg IV/po weekly. On hold since 12/04/2022. 02/18/2023: Continue to hold chemotherapy due to cytopenias: if resumed will reduce cyclophosphamideto 120mg/m2 with carfilzomib 20mg/m2 and dexamethasone 20mg IV/po weekly Goal of Treatment: Palliative - Time with Patient Time Spent with Patient (Follow Up Visit): 35 minutes - Mod complexity--PET/CT for restaging and coordinate IR bone marrow biopsy Coordination of Care & Counseling Time: Greater than 50% of time spent with patient was for coordination of care (as documented) and [id number] counseling of patient and/or family. Dictated By: Fabiola Marinelli MD DD/ [id number] Signed By: <Electronically signed by MD Fabiola Marinelli> 02/18/232006 [facility] Work Phone: [phone]) [phone] Consult note Author Fabiola Marinelli [facility] January 28, 2023 3:19pmNote Date/TimeMarch 2022 9:58[place] [address] Hem/Onc Consult Note - IP Signed with Addenda Patient: Mojgan Pérez MR#: [id number] : 1955 Acct:[id number] Age/Sex: 67 / F Adm Date: 3 Loc: Room: [address] [place] [address] Type: ADM IN Attending Dr: Vicente Linton DO Copies to: MD Yinka Downey MD Mary K Demboske, KEITH Linton DO~ ADDENDUM1 I personally interviewed and examined patient and agree with assessment by TONYA Gallagher below. Addendum Documented By: MD Fabiola Marinelli 01/28/231518 Addendum Signed By: <Electronically signed by MD Fabiola Marinelli> 01/28/23 1519 HPI Consult Date: 01/28/2023 Requesting Provider: Vicente Linton DO Reason for Consult: thrombocytopenia History of Present Illness: Johana is a 67 year old female well known to our clinic as she follows with Dr. Marinelli for her multiplemyeloma. Her Kyprolis and Cytoxan have been held since the beginning of December d/t her cytopenias. Most recent outpatient notes documented below. She notes a new onset or suprapubic pain and dysuria last night as well as some hematuria so presented to the ER overnight. She was diagnosed with a UTI, initiated on IV Rocephin and admitted for further management. Labs reveal continued cytopenias with platelets back down to 35,000 but improved hemoglobin at 11.1 and wbc 3.0. She denies fevers, chills, sweats. She recently had been diagnosed with sinusitis and has been on aZ-emiliano for this, still with some greenish mucous. Shereports previous diarrhea a few days ago that has since resolved. Otherwise no new complaints. Most recent outpatient visits: 01/09/2023: Here for followup after consult with Dr. Benavidez last week. Progress note is still pending, but we communicated by secure text regarding her evaluation. Myeloma labs are stable with mild increase of serum kappa from 40s to 60s range. Platelet count now to 68 and ANC 900 since holding Kyprol is/Cytoxan since 12/05/2022 for cytopenias. We decided to hold 2 more weeksthen resume Kyprolis at same dose 20mg/m2 and further decrease Cytoxan to 40% dose overall when we resume dose. Next line of therapy at progression may be CD3/BCMA myeloma bispecific antibody Teclistamab (needs to be hospitalized firstweek due to risk of cytokine release syndrome). Plan to resume likely in 2 weeks if adequate blood counts and no infection. F/u with myeloma labs (CBC, CMP, quant immunoglobulins and kappa/lambda light chains) in 2 months, sooner prn. Moderate complexity 30 minute followup. 12/26/2022: Mojgan continues to have nasal drainage sinus congestion and pain despite completing 2 weeks of amoxicillin and no air-fluid level on CT Sinuses 11/30/2022. We gave last dose of Kyprolis/Cytoxan (60% dose) on 12/05/2022. Peripheral neuropathy is stable, no diarrhea, no skin rashes. We reviewed her labs with ANC 900, platelets 37,000 and she notes easy bruising but no nasal/oral mucosal, GI or bleeding. I will again hold Kyprolis/Cytoxan another 2 weeks and give 2 weeks of Augmentin 875/125mg bid for her persistent sinus infection and Diflucan 100mg daily for vaginal candidiasis. Will formallyrefer back to Dr. Benavidez to see if she is a candidate for the CD3/BCMA myeloma bispecificantibody therapy which she would need to receive at [facility]. F/u with me in 2 weeks--if persistent cytopenias we may need torepeat her bone marrow biopsy (if now performed by Dr. Benavidez). She agrees with this plan over this 35 min moderate complexity followup visit. 11/26/2022: Mojgan is here for monthly followup on modified CYKLONE therapy. Notes increased frontal headaches over the past with with nasal congestion--sending for sinus CT and 2 week course of Augmentin bid. Platelet count recently dropped as low as 25-31,000 without bleeding (currently 40,000), WBC to 1300 with ANC 700. No current fever, chills or symptoms of infection. Prior dose reductions of Kyprolis to 20mg/m2 weekly with cyclophosphamide 240mg/m2 weekly). Echo with normal EF 55-60%. We will further dose reduce cyclophosphamide to 180mg/m2 (overall 40% dose reduction) and maintain Kyprolis at 20mg/m2. She has ongoing decline of lambda light chains over the past 6 months indicating response. I discussed her case with Dr. Piter Benavidez who notedtherapy could be held if worsening cytopenias. For now continue monthly followup with myeloma labs (quant immunoglobulins and kappa/lambda light chains). Bleeding precautions and f/u sooner if new symptoms arise. Moderate complexity 35-minute visit for review of complex labs and adjustment of chemotherapy regimen. MEDICAL ONCOLOGY PHYSICIAN NOTE 01/28/2023: Mojgan is well-known to me from follow-up for multiple myeloma and pancytopenia which is known to be due to nonalcoholic steatohepatitis with cirrhosis and has been present for many years. She has had limited options for myeloma therapy given her chronic thrombocytopenia. Until recentlyradha had not had frequent infections, however she has been seen as an outpatient with treatment for recurrent sinusitis, vaginal candidiasis, and she called the after-hours line last night noting sudden onset of dysuria. She presented to the emergency department and had hematuria with dysuria and urine appeared consistent with UTI. Urine and blood cultures are pending at this time and she is covered with Rocephin. As noted above she has not had active therapy for hermyeloma due to her recent cytopenias and sinus infections. 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 Today we discussed treating her with outpatient IV immunoglobulin due to her more frequentinfections. Patients who have myeloma typically do have a concern with hyperviscosity utilizing IVIG, however this patient has nonsecretory myeloma andshould not have risk of hyperviscosity. We will continue to follow her as an inpatient and hold her chemotherapy that is scheduled this Thursday for 1more week. We will send prior authorization for outpatient IVIG and potentially resume her chemotherapy the following Thursday if infection is improved. -- Today we reviewed informed consent for IVIG. We discussed risks of infection, allergic/infusion reactions, anemia, skin rashes, myalgias, respiratory issues, swelling. She signed informed consent and will receive thisas an outpatient. PMFSH - Medical History Medical History: Medical History (Last Reviewed 01/28/23 @ 05:43 by Sherif Ravi DO) Aortic aneurysm COPD (chronic obstructive pulmonary disease) Diabetes Fibromyalgia GERD (gastroesophageal reflux disease) Hypertension Iron deficiency Multiple myeloma Neutropenia Smoldering multiple myeloma (SMM) Smoldering myeloma Temporary low platelet count - Surgical History Surgical History: Surgical History (Last Reviewed 01/28/23 @ 05:43 by Sherif Ravi DO) H/O: hysterectomy History of appendectomy History of cholecystectomy - Family History Family History: Family History (Last Updated 01/28/23 @ 05:43 by Sherif Ravi DO) Other COPD (chronic obstructive pulmonary disease) - Social History Smoking Status: Former smoker Tobacco Type: cigarettes Substance Use Type: None Social History Comments: Lives with son a juli Allergies & Medications Allergies erythromycin base [From E-Mycin] Allergy (Verified 01/28/23 06:28) Hives latex Allergy (Verified 01/28/23 00:22) Unknown Reaction moxifloxacin [From Avelox] Allergy (Verified 01/28/23 00:22) Hives Quinolones Allergy (Verified 01/28/23 00:22) Unknown Reaction tetracycline Allergy (Verified 01/28/23 00:22) Unknown Reaction Home Medications carvedilol 12.5 mg tablet 12.5 mg PO BID 11/20/17 [History Confirmed 01/28/23] duloxetine 60 mg capsule,delayed release 60 mg PO DAILY 11/20/17 [History Confirmed 01/28/23] insulin detemir U-100 100 unit/mL (3 mL) subcutaneous pen 22 units subcut DAILY PRN Hyperglycemia 11/20/17 [History Confirmed 01/28/23] oxycodone 10 mg tablet 10 mg PO BID PRN Pain 11/20/17 [History Confirmed 01/28/23] albuterol sulfate 90 mcg/actuation aerosol inhaler 2 puff inhalation Q6H PRN Shortness Of Breath 11/24/17 [History Confirmed 01/28/23] omeprazole magnesium 20 mg tablet,delayed release (Prilosec OTC) 40 mg PO DAILY 11/24/17 [History Confirmed 01/28/23] metformin 500 mg tablet,extended release 24 hr 500 mg PO BID 03/05/20 [History Confirmed 01/28/23] semaglutide 0.25 mg or 0.5 mg (2 mg/1.5 mL) subcutaneous pen injector (Ozempic) 1 mg subcut QWEEK 09/24/20 [History Confirmed 01/28/23] vitamin B12 0.5 mg-folic acid 1 mg tablet 1 tab PO DAILY 03/28/21 [History Confirmed 01/28/23] lactulose 20 gram/30 mL oral solution 20 g (30 mL) PO BID PRN Constipation #600 mL 04/09/22 [Rx Confirmed 01/28/23] acyclovir 400 mg tablet 400 mg PO BID 90 days #180 tabs 09/24/22 [Rx Confirmed 01/28/23] potassium chloride 10 mEq capsule,extended release 10 meq PO DAILY #30 caps 11/18/22 [Rx Confirmed 01/28/23] loratadine 10 mg tablet (Claritin) 10 mg PO DAILY 12/26/22 [History Confirmed 01/28/23] azithromycin 250 mg tablet (Zithromax Z-Emiliano) 0 mg PO .COMPLEX #6 tabs 01/26/23 [Rx Confirmed 01/28/23] cyanocobalamin (vitamin B-12) 1,000 mcg sublingual tablet 1,000 mcg sublingual DAILY 01/28/23 [History Confirmed 01/28/23] dexamethasone 4 mg tablet 20 mg PO DIRECTED PRN Systemic Signs And Symptoms 01/28/23 [History Confirmed 01/28/23] fluticasone propionate 50 mcg/actuation nasal spray,suspension 1 spray intranasal DAILY PRN AllergySymptoms 01/28/23 [History Confirmed 01/28/23] insulin aspart U-100 100 unit/mL (3 mL) subcutaneous pen (Novolog FlexPen U-100 Insulin aspart) 25 unit subcut DAILY PRN Hyperglycemia 01/28/23 [History Confirmed 01/28/23] lisinopril 5 mg tablet 5 mg PO DAILY 01/28/23 [History Confirmed 01/28/23] ondansetron 8 mg disintegrating tablet 8 mg PO TID PRN Nausea 01/28/23 [History Confirmed 01/28/23] Physical Exam - Physical Exam Vital signs: Temp Pulse Resp BP Pulse Ox O2 Del Method 98.2 F 81 16 151/88 H 95 Room Air 01/28/23 08:00 01/28/23 08:00 01/28/23 08:00 01/28/23 08:00 01/28/23 08:00 01/28/23 08:40 CONSTITUTIONAL: The patient is in no acute distress. HEAD / FACE: Normocephalic. EYES: Pupils are equal and reactive to light. Conjunctivae and lids are benign in appearance. Ocular movement intact. EARS: Hearing grossly intact. NOSE / MOUTH / THROAT: Nose, mouth, tongue and oropharynx are benign in appearance. No signs of inflammation. NECK / THYROID: Neck is supple. Thyroid is symmetrical, without thyromegaly, masses or palpable nodules. RESPIRATORY: Normal to inspection. Lungs clear to auscultation and percussion. No wheezing, rales, rhonchi or rubs. Normal effort. CARDIOVASCULAR: Regular rate and rhythm. No murmurs, gallops, or rubs. ABDOMEN: Bowel sounds normoactive. Soft, non-distended. No splenomegaly. No palpable masses. INTEGUMENTARY: The skin is unremarkable. No rashes. No suspicious lesions MUSCULOSKELETAL: Normal musculature, no joint deformities or abnormalities, normal range of motion for all four extremities. EXTREMITIES: No cyanosis or clubbing. NEUROLOGICAL: Alert and oriented. Cranial nerves intact. No gross motor or sensory deficits. PSYCHIATRIC: No anxiety or evidence of depression. Results - Labs Lab Results: 01/28/23 01:10: Slides for Path Review Cancelled 01/28/23 01:10: PHA Creatinine Clear 69.42, Sodium 139, Potassium 3.4 L, Chloride 105, Carbon Dioxide 28.8, Anion Gap 8.6, BUN 12, Creatinine 0.39 L, EstGFR (CKD-EPI) > 60.0, Glucose 105 H, Calcium 8.7 01/28/23 01:10: Corrected WBC 3.0 L, Uncorrected WBC Count 3.0 L, RBC 3.24 L, Hgb 11.1 L, Hct 32.2 L, MCV 99.5, MCH 34.2, MCHC 34.3, RDW 14.7, Plt Count 35 L*, MPV 9.3, Neut % (Auto) 64.8, Lymph % (Auto) 20.4, Hodgeman % (Auto) 12.3, Eos % (Auto) 2.4, Baso % (Auto) 0.1, Nucleat RBC Rel Count 0.4, Neut # (Auto) 1.9, Lymph # (Auto) 0.6 L, Hodgeman # (Auto) 0.4, Eos # (Auto) 0.1, Baso # (Auto) 0.0, MonocyteDist Width 19.52, Platelet Estimate Decreased, Plt Morphology Comment Normal, RBC Morphology N/A, Poikilocytosis Moderate, Tear Drop Cells Slight, Ovalocytes Moderate 01/28/23 00:29: Urine Color Dark yellow A, Urine Appearance Turbid A, Urine pH 5.5, Ur Specific [place] 1.023, Urine Protein >=1000 H, Urine Glucose (UA) Normal, Urine Ketones Trace H, Urine Occult Blood 3+ H, Urine Nitrite Negative, Urine Bilirubin Negative, Urine Urobilinogen Normal, Ur Leukocyte Esterase 3+ H,Urine RBC 50-100 H, Urine WBC Innumerable H, Ur Squamous Epith Cells 3-4 H, Other Crystals None seen, Urine Bacteria 3+ H, Hyaline Casts 0-8 Assessment & Plan (1) Hypogammaglobulinemia She has had hypogammaglobulinemia for the last year, but has not had prior IVIG as she has not had previous admissions for infections. Recently, she has had recurrent sinusitis at least 3 times and now is admitted with a UTI. She is low risk for hyperviscosity. Her recent IgG was 311 on 01/01/23. We will plan for IVIG starting in the outpatient setting next week. (2) UTI (urinary tract infection) She presented to the ER overnight with new suprapubic pain, dysuria and hematuria. UA was positive for UTI and she was initiated on IV Rocephin -- continue treatment per hospitalist team (3) Multiple myeloma Qualifiers: Multiple myeloma remission status: not in remission Qualified Code(s): C90.00 - Multiple myeloma not having achieved remission Originally diagnosed 2019 after observation for smoldering myeloma and moderate thrombocytopenia (due to splenic sequestration from KAPADIA cirrhosis) summer 2016- 02/03/2020. She underwent a single dose of palliative radiation therapy to bilateral hips. Then deferred active therapy for myeloma 2 months given COVID- 19. She initiated on Velcade, Dex and Daratumumab at that time for initial therapy. She progressed on this and received multiple subsequent lines of therapy. More recently, she did not tolerate Pomalyst and was initiated on Kyprolis/Cytoxan/Dex in July 2022, which she has remained on until recently. Kyprolis/Cytoxan have been held since early December d/t cytopenias. The plan will be to resume therapy next week, 02/06/2023, if her counts improve and plannedreduced dose of Cytoxan. Dr. Benavidez is in agreement with her plan from most recent communication with Dr. Marinelli. She may be a future candidatefor bispecific antibody Teclistamab (needs to be hospitalized first week due to riskof cytokine release syndrome). 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 Platelets 37,000-->68,000. Plan to resume 02/06 with cytoxan dose reduction if improving cytopenias. She may be a future candidate for bispecific antibodies for multiple myeloma. Still has no active bleeding beyond the small amount of hematuria d/t UTI. No significant bruising. - Time Spent with Patient Greater than 50% of time spent with patient was for coordination of care (as documented) and [id number] counseling of patient and/or family. Documented By: Shannon Gallagher APRN 01/28/23 09 57 Signed By: <Electronically signed by KEITH Gallagher> 01/28/23 1413 <Electronically signed by MD Fabiola Marinelli> 01/28/23 3714 [facility] Work Phone: 1(824) 992-396703-29-2023 Progress note Author Vicente Linton [facility] January 29, 2023 6:23pmNote Date/TimeMarch 2022 2:[place] [address] Hospitalist Progress Note Signed with Addenda Patient: Mojgan Pérez MR#: [id number] : 1955 Acct:[id number] Age/Sex: 67 / F Adm Date: 3 Loc: 3T Room: [address] [place] [address] Type: DIS IN Attending Dr: Vicente Linton DO Copies to: ~ ADDENDUM1 General: Awake alert, friend at bedside HEENT: head atraumatic, normocephalic, moist mucous membranes, normal nose and ears, no throat lesions, normal conjunctiva Neck: supple no masses, no lymphadenopathy CVS: regular rate and rhythm, no murmurs or gallops Respiratory: clear to auscultation bilaterally, no wheezing or crackles, symmetric expansion GI: soft, nondistended, nontender, positive bowel sounds with no organomegaly. suprapubic tenderness to palpation. Extremity: moves all extremities, no restrictions of movements, no calf tenderness, no edema Neuro: AOx3, CN II-VII intact. Moves all extremities in all planes of motion. Skin: dry, intact no rashes or lesions Addendum Documented By: Vicente Linton DO 01/29/231822 Addendum Signed By: <Electronically signed by Vicente Linton DO> 01/29/231822 Date of Service: 01/28/2023 Subjective Subjective Narrative: Seen evaluated bedside, family present at bedside as well. Patient states she is feeling better, the pain with urination is decreasing from yesterday. Exam Physical Exam Vital Signs: Temp Pulse Resp BP Pulse Ox O2 Del Method 98.2 F 83 16 145/79 H 96 Room Air 01/28/23 08:00 01/28/23 12:00 01/28/23 12:00 01/28/23 12:00 01/28/23 12:00 01/28/23 12:00 Objective Lab Results 01/28/23 01:10 01/28/23 01:10 Meds Allergies and Active Meds Allergies erythromycin base [From E-Mycin] Allergy (Verified 01/28/23 06:28) Hives latex Allergy (Verified 01/28/23 00:22) Unknown Reaction moxifloxacin [From Avelox] Allergy (Verified 01/28/23 00:22) Hives Quinolones Allergy (Verified 01/28/23 00:22) Unknown Reaction tetracycline Allergy (Verified 01/28/23 00:22) Unknown Reaction Active Meds: Active Medications Generic Name Dose Route Start Last Admin Trade Name Muna PRN Reason Stop Dose Admin Acetaminophen 650 mg 01/28/23 05:52 01/28/23 06:56 Acetaminophen 325 Mg Tablet PO 01/28/24 05:51 650 mg Q6HR PRN Administration Pain Scale 1 - 3 or fever Acyclovir 400 mg 01/28/23 09:00 01/28/23 08:55 Acyclovir 400 Mg Tablet PO 400 mg BID WALLACE Administration Alteplase, Recombinant 2 mg 01/28/23 11:28 Alteplase 2 Mg Vial INTRACATH ONCE PRN Occlusion Azithromycin 250 mg 01/28/23 09:00 01/28/23 08:55 Azithromycin 250 Mg Tablet PO 01/31/23 08:59 250 mg DAILY WALLACE Administration Carvedilol 12.5 mg 01/28/23 09:00 01/28/23 08:55 Carvedilol 12.5 Mg Tablet PO 01/28/24 08:59 12.5 mg BID.WITH.MEALS WALLACE Administration Ceftriaxone Sodium 1 gm in 50 mls @ 100 mls/hr 01/29/23 04:00 Rocephin IV Q24H WALLACE Lactulose 20 gm 01/28/23 08:29 Lactulose 20 Gm/30 Ml Udc PO 01/28/24 08:28 BID PRN Constipation Pantoprazole Sodium 40 mg 01/28/23 09:00 01/28/23 09:26 Pantoprazole 40 Mg Tablet. PO 01/28/24 08:59 40 mg BID WALLACE Administration Phenazopyridine HCl 200 mg 01/28/23 05:52 Phenazopyridine 100 Mg Tablet PO TID PRN Pain Potassium Chloride 20 meq 01/28/23 05:52 01/28/23 08:55 Potassium Chloride Er 20 Meq Tab.Er.Prt PO 01/28/24 05:51 20 meq DAILY PRN Administration Hypokalemia Potassium Chloride 40 meq 01/28/23 05:52 Potassium Chloride Er 20 Meq Tab.Er.Prt PO 01/28/24 05:51 DAILY PRN Hypokalemia Potassium Chloride 10 meq 01/28/23 09:00 01/28/23 09:26 Potassium Chloride Er 10 Meq Capsule.Er PO 01/28/24 08:59 10 meq DAILY WALLACE Administration Sodium Chloride 0 ml 01/28/23 00:22 01/28/23 01:07 Sodium Chloride 0.9 % 10 Ml Syringe IV-PUSH 01/28/24 00:21 10 ml PRN PRN Administration Flush Sodium Chloride 0 ml 01/28/23 06:00 01/28/23 08:55 Sodium Chloride 0.9 % 10 Ml Syringe IV-PUSH 01/28/24 05:59 10 ml QSHIFT WALLACE Administration Sterile Water 2.2 ml 01/28/23 11:28 Water For Injection,Sterile 10 Ml Vial INJECTION 01/28/24 11:27 PRN PRN To Dilute Cathflo A&P - Hospitalist Assessment/Plan (1) UTI (urinary tract infection): (2) Hematuria: (3) Diabetes mellitus: (4) Fibromyalgia: (5) 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 This is a medically critical situation because she is on treatment for multiple myelomaand has pancytopenia and thrombocytopenia at baseline anyway. She also has a history of cirrhosis and KAPADIA. For this reason inpatient status is necessary. She will receive IV Rocephin. She is at highrisk for bacteremia. She will need to be monitored for resolution of hematuria and awaiting the urine culture and sensitivity results. Plan: Admit to the hospital. Inpatient status. Continue IV Rocephin. Check labs daily. Consult hematology/oncology regarding her thrombocytopenia. Her thrombocytopenia is stable Monitor urine output for resolution of hematuria Cultures pending so far, blood and urine Documented By: Vicente Linton DO 01/28/23 144 Signed By: <Electronically signed by Vicente Linton DO> 01/28/23 1445 [facility] Work Phone: 1(266) 454-531303-29-2023 History and physical note Author Sherif Ravi [facility] January 28, 2023 5:51amNote Date/TimeMarch 2022 5:45[place] [address] Hospitalist H&P Signed Patient: Mojgan Pérez MR#: [id number] : 1955 Acct:[id number] Age/Sex: 67 / F Adm Date: 3 Loc: Room: [address] [place] [address] Type: ADM INOo Attending Dr: Sherif Ravi DO Copies to: MD Sherif Amezquita, ~ HPI DATE OF EXAMINATION: 01/28/23 CHIEF COMPLAINT: pain and bleeding with urination. HISTORY OF PRESENT ILLNESS: This is a 67-year-old woman who present emergency room today with rather sudden onset of extremely painful urination accompanied with some hematuria. She describes seeing little streaks of blood on the toilet paper and tiny little blood clots. She only rarely gets urinary tract infections. With this current episode she noticed a significant amount of suprapubic pain. In the emergency room a urinary tract infection was diagnosed and she was placed on Rocephin. 2 days ago she got started on azithromycin 5-day treatment pack due to a sinus infection, which she describes coughing up greenish phlegm that is now turned yellow. She also says that for about 3 to 4 days she was having yellow-greenish diarrhea but that did seem to get better over the last day or 2. 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 Her white blood count has risen from its baseline of about 1.7 up to 3.0 today. Her hemoglobin remained stable. In the past it was 10.8 and today it is 11.1. Her platelets recently reached a peak of 68k but are much lower today at only 35,000. Oncology is using Kyprolis/Cytoxan but the patient reports that she hasbeen on a break from that for the last couple weeks it would be due to take her next dose on Thursday 2 days from now. She denies any sudden myalgias or arthralgias. She denies any sudden fevers or chills or shaking chills. She denies any rashes on her skin. In the emergency room they did give her Rocephin and then Pyridium. She notices that her urine is already turning orange. She has a past medical history of diabetes, tension, chronic struct of pulm disease, gastroesophageal reflux disease, fibromyalgia, chronic thrombocytopenia, chronic liver disease from KAPADIA, and has an ascending aortic aneurysm which is being monitored. Review of Systems Review of Systems Review of systems: 10 systems are reviewed and are negative except as mentioned elsewhere in the documentation. PMFSH Vaccinated for COVID-19?: Yes Medical History Aortic aneurysm COPD (chronic obstructive pulmonary disease) Diabetes Fibromyalgia GERD (gastroesophageal reflux disease) Hypertension Iron deficiency Multiple myeloma Neutropenia Smoldering multiple myeloma (SMM) Smoldering myeloma Temporary low platelet count Surgical History H/O: hysterectomy History of appendectomy History of cholecystectomy Family History (Updated 01/28/23 @ 05:43 by Sherif Ravi DO) Other COPD (chronic obstructive pulmonary disease) Social History Smoking Status: Former smoker Tobacco Type: cigarettes Substance Use Type: None Social History Comments[facility] Medications and Allergies Allergies erythromycin base [From E-Mycin] Allergy (Verified 01/28/23 00:22) Hives latex Allergy (Verified 01/28/23 00:22) Unknown Reaction moxifloxacin [From Avelox] Allergy (Verified 01/28/23 00:22) Hives Quinolones Allergy (Verified 01/28/23 00:22) Unknown Reaction tetracycline Allergy (Verified 01/28/23 00:22) Unknown Reaction Home Medications carvedilol 12.5 mg tablet 12.5 mg PO BID 11/20/17 [History Confirmed 01/09/23] duloxetine 60 mg capsule,delayed release 60 mg PO DAILY 11/20/17 [History Confirmed 01/09/23] insulin detemir U-100 100 unit/mL (3 mL) subcutaneous pen 26 units subcut QHS 11/20/17 [History Confirmed 01/09/23] oxycodone 10 mg tablet 10 mg PO TID PRN Pain 11/20/17 [History Confirmed 01/09/23] albuterol sulfate 90 mcg/actuation aerosol inhaler 2 puff inhalation Q6H PRN Shortness Of Breath 11/24/17 [History Confirmed 01/09/23] fluticasone 250 mcg-salmeterol 50 mcg/dose blistr powdr for inhalation (Advair Diskus) 1 inh inhalation Q12H PRN Shortness Of Breath 11/24/17 [History Confirmed 01/09/23] omeprazole magnesium 20 mg tablet,delayed release (Prilosec OTC) 40 mg PO DAILY 11/24/17 [History Confirmed 01/09/23] cholecalciferol (vitamin D3) 25 mcg (1,000 unit) capsule (Vitamin D3) 1,000 unitPO DAILY 04/13/19 [History Confirmed 01/09/23] metformin 500 mg tablet,extended release 24 hr 500 mg PO BID 03/05/20 [History Confirmed 01/09/23] ondansetron HCl 8 mg tablet (Zofran) 8 mg PO TID PRN Nausea #30 tabs 04/02/20 [Rx Confirmed 01/09/23] insulin NPH isoph U-100 human 100 unit/mL subcutaneous suspension (Novolin N NPHU-100 Insulin isophane) 20 unit subcut DIRECTED 05/21/20 [History Confirmed 01/09/23] semaglutide 0.25 mg or 0.5 mg (2 mg/1.5 mL) subcutaneous pen injector (Ozempic) 0.5 mg subcut QWEEK09/24/20 [History Confirmed 01/09/23] cyanocobalamin (vitamin B-12) 5,000 mcg capsule 5,000 mcg PO QWEEK 10/29/20 [History Confirmed 01/09/23] vitamin B12 0.5 mg-folic acid 1 mg tablet 1 tab PO DAILY 03/28/21 [History Confirmed 01/09/23] diazepam 5 mg tablet (Valium) 5 mg PO DIRECTED 1 day #2 tabs 07/17/21 [Rx Confirmed 01/09/23] gabapentin 300 mg tablet 600 mg PO TID 07/26/21 [History Confirmed 01/09/23] dexamethasone 4 mg tablet 20 mg PO ONCE 90 days #60 tabs 03/26/22 [Rx Confirmed 01/09/23] lactulose 20 gram/30 mL oral solution 20 g (30 mL) PO BID PRN Constipation #600 mL 04/09/22 [Rx Confirmed 01/09/23] ondansetron 8 mg disintegrating tablet 8 mg PO Q8H PRN Nausea #30 tabs 06/04/22 [Rx Confirmed 01/09/23] dexamethasone 4 mg tablet 40 mg PO ONCE #40 tabs 07/14/22 [Rx Confirmed 01/09/23] acyclovir 400 mg tablet 400 mg PO BID 90 days #180 tabs 09/24/22 [Rx Confirmed 01/09/23] potassium chloride 10 mEq capsule,extended release 10 meq PO DAILY #30 caps 11/18/22 [Rx Confirmed 01/09/23] amoxicillin 875 mg-potassium clavulanate 125 mg tablet 1 tab PO BID 14 days #28 tabs 12/26/22 [Rx Confirmed 01/09/23] fluconazole 100 mg tablet (Diflucan) 100 mg PO DAILY #14 tabs 12/26/22 [Rx Confirmed 01/09/23] loratadine 10 mg tablet (Claritin) 10 mg PO DAILY 12/26/22 [History Confirmed 01/09/23] azithromycin 250 mg tablet (Zithromax Z-Emiliano) 0 mg PO .COMPLEX #6 tabs 01/26/23 [Rx] Exam Physical Exam Vital Signs: Temp Pulse Resp BP Pulse Ox O2 Del Method 98.8 F 84 20 180/88 H 96 Room Air 01/28/23 00:23 01/28/23 04:18 01/28/23 04:18 01/28/23 04:18 01/28/23 04:18 01/28/23 04:18 Narrative: GEN: Awake, alert, lying on the ER cot she looks moderately toxic, and older than stated age Head: Normal Cephalic, Atraumatic. Eyes: Conjunctiva and sclera clear bilaterally. Nose: External nose and nares normal bilaterally. Mouth: Lips and tongue normal. Neck: No JVD. No thyromegaly. No lymphadenopathy. Lungs: Clear to auscultation bilaterally, no wheezing, no crackles. Heart: Regular rate and rhythm, no murmurs, rubs, or gallops. Abdomen: Soft, normal bowel sounds, no rigidity, guarding, or acute peritoneal signs. Extremities: No swelling or cords in the calves bilaterally, no edema in the ankles bilaterally. Skin: No systemic rashes or lesions. Psychiatric: Calm. Conversant. Cooperative. Neuro: Awake, Alert, and Oriented x 3. No focal or lateralizing deficits. Results Lab Results Labs: Laboratory Last Values Corrected WBC 3.0 X10E3/uL (3.8-11.6) L 01/28/23 01:10 Uncorrected WBC Count 3.0 x10E3/uL (3.8-11.6) L 01/28/23 01:10 RBC 3.24 X10E6/uL (3.60-5.00) L 01/28/23 01:10 Hgb 11.1 g/dL (11.8-15.4) L 01/28/23 01:10 Hct 32.2 % (34.0-46.4) L 01/28/23 01:10 MCV 99.5 fl (80-100) 01/28/23 01:10 MCH 34.2 pg (24.7-34.3) 01/28/23 01:10 MCHC 34.3 g/dL (32.0-35.0) 01/28/23 01:10 RDW 14.7 % (11.9-15.3) 01/28/23 01:10 Plt Count 35 x10E3/uL (150-450) L* 01/28/23 01:10 MPV 9.3 fl (6.3-10.7) 01/28/23 01:10 Neut % (Auto) 64.8 % (.) 01/28/23 01:10 Lymph % (Auto) 20.4 % (.) 01/28/23 01:10 Hodgeman % (Auto) 12.3 % (.) 01/28/23 01:10 Eos % (Auto) 2.4 % (.) 01/28/23 01:10 Baso % (Auto) 0.1 % (.) 01/28/23 01:10 Nucleat RBC Rel Count 0.4 /100 WBC (0-0.5) 01/28/23 01:10 Neut # (Auto) 1.9 x10E3/uL (1.8-7.7) 01/28/23 01:10 Lymph # (Auto) 0.6 x10E3/uL (1.00-4.8) L 01/28/23 01:10 Hodgeman # (Auto) 0.4 x10E3/uL (0.0-0.8) 01/28/23 01:10 Eos # (Auto) 0.1 x10E3/uL (0.0-0.45) 01/28/23 01:10 Baso # (Auto) 0.0 x10E3/uL (0.0-0.2) 01/28/23 01:10 Monocyte Dist Width 19.52 % (0.00-20.00) 01/28/23 01:10 Platelet Estimate Decreased (Normal) 01/28/23 01:10 Plt Morphology Comment Normal (Normal) 01/28/23 01:10 RBC Morphology N/A 01/28/23 01:10 Poikilocytosis Moderate 01/28/23 01:10 Tear Drop Cells Slight 01/28/23 01:10 Ovalocytes Moderate 01/28/23 01:10 PHA Creatinine Clear 69.42 01/28/23 01:10 Sodium 139 mmol/L (136-145) 01/28/23 01:10 Potassium 3.4 mmol/L (3.5-5.1) L 01/28/23 01:10 Chloride 105 mmol/L (98-107) 01/28/23 01:10 Carbon Dioxide 28.8 mmol/L (21.0-31.0) 01/28/23 01:10 Anion Gap 8.6 mEq/L (6.0-15.0) 01/28/23 01:10 BUN 12 mg/dL (7-25) 01/28/23 01:10 Creatinine 0.39 mg/dL (0.60-1.20) L 01/28/23 01:10 Est GFR (CKD-EPI) > 60.0 01/28/23 01:10 Glucose 105 mg/dL (70-100) H 01/28/23 01:10 Calcium 8.7 mg/dL (8.6-10.3) 01/28/23 01:10 Urine Color Dark yellow (Yellow) A 01/28/23 00:29 Urine Appearance Turbid (Clear) A 01/28/23 00:29 Urine pH 5.5 (5.0-9.0) 01/28/23 00:29 Ur Specific [place] 1.023 (1.001-1.030) 01/28/23 00:29 Urine Protein >=1000 mg/dL (Negative) H 01/28/23 00:29 Urine Glucose (UA) Normal mg/dL (Normal) 01/28/23 00:29 Urine Ketones Trace (Negative) H 01/28/23 00:29 Urine Occult Blood 3+ (Negative) H 01/28/23 00:29 Urine Nitrite Negative (Negative) 01/28/23 00:29 Urine Bilirubin Negative (Negative) 01/28/23 00:29 Urine Urobilinogen Normal mg/dL (Normal) 01/28/23 00:29 Ur Leukocyte Esterase 3+ (Negative) H 01/28/23 00:29 Urine RBC 50-100 /HPF (0-4) H 01/28/23 00:29 Urine WBC Innumerable /HPF (0-4) H 01/28/23 00:29 Ur Squamous Epith Cells 3-4 /HPF (0-2) H 01/28/23 00:29 Other Crystals None seen /HPF 01/28/23 00:29 Urine Bacteria 3+ (None Seen) H 01/28/23 00:29 Hyaline Casts 0-8 /LPF (0-8) 01/28/23 00:29 Slides for Path Review Cancelled 01/28/23 01:10 A&P - Hospitalist Assessment/Plan (1) UTI (urinary tract infection): (2) Hematuria: (3) Diabetes mellitus: (4) Fibromyalgia: (5) 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 This is a medically critical situation because she is on treatment for multiple myelomaand has pancytopenia and thrombocytopenia at baseline anyway. She also has a history of cirrhosis and KAPADIA. For this reason inpatient status is necessary. She will receive IV Rocephin. She is at highrisk for bacteremia. She will need to be monitored for resolution of hematuria and awaiting the urine culture and sensitivity results. Plan: Admit to the hospital. Inpatient status. Continue IV Rocephin. Check labs daily. Consult hematology/oncology regarding her thrombocytopenia. Documented By: Sherif Ravi DO [id number] Signed By: <Electronically signed by Sherif Ravi DO> 01/28/23 0551 [facility] Work Phone: 1(580) 915-964303-10-2023 Progress note Author Fabiola Marinelli [facility] January 09, 2023 9:59pmNote Date/TimeMar2022 11:00[facility] [place] [address] Hem/Onc Follow Up Note - OP Signed Patient: Mojgan Pérez MR#: [id number] : 1955 Acct:[id number] Age/Sex: 67 / F Type: REG RCR Copies to: MD Yinka Downey MD Ehsan Malek, MD~ Subjective Date/Time of Service: Date of Service: 01/09/2023 Time of Service: 10:59 Chief Complaint: Patient is here today for a 2 week follow up visit and go labs.She still has sinius pressure and headaches HPI: 01/09/2023: Here for followup after consult with Dr. Benavidez last week. Progress note is still pending, but we communicated by secure text regarding her evaluation. Myeloma labs are stable with mild increase of serum kappa from 40s to 60s range. Platelet count now to 68 and ANC 900 since holding Kyprol is/Cytoxan since 12/05/2022 for cytopenias. We decided to hold 2 more weeksthen resume Kyprolis at same dose 20mg/m2 and further decrease Cytoxan to 40% dose overall when we resume dose. Next line of therapy at progression may be CD3/BCMA myeloma bispecific antibody Teclistamab (needs to be hospitalized firstweek due to risk of cytokine release syndrome). Plan to resume likely in 2 weeks if adequate blood counts and no infection. F/u with myeloma labs (CBC, CMP, quant immunoglobulins and kappa/lambda light chains) in 2 months, sooner prn. Moderate complexity 30 minute followup. 12/26/2022: Mojgan continues to have nasal drainage sinus congestion and pain despite completing 2 weeks of amoxicillin and no air-fluid level on CT Sinuses 11/30/2022. We gave last dose of Kyprolis/Cytoxan (60% dose) on 12/05/2022. Peripheral neuropathy is stable, no diarrhea, no skin rashes. We reviewed her labs with ANC 900, platelets 37,000 and she notes easy bruising but no nasal/oral mucosal, GI or bleeding. I will again hold Kyprolis/Cytoxan another 2 weeks and give 2 weeks of Augmentin 875/125mg bid for her persistent sinus infection and Diflucan 100mg daily for vaginal candidiasis. Will formallyrefer back to Dr. Benavidez to see if she is a candidate for the CD3/BCMA myeloma bispecificantibody therapy which she would need to receive at [facility]. F/u with me in 2 weeks--if persistent cytopenias we may need torepeat her bone marrow biopsy (if now performed by Dr. Benavidez). She agrees with this plan over this 35 min moderate complexity followup visit. 11/26/2022: Mojgan is here for monthly followup on modified CYKLONE therapy. Notes increased frontal headaches over the past with with nasal congestion--sending for sinus CT and 2 week course of Augmentin bid. Platelet count recently dropped as low as 25-31,000 without bleeding (currently 40,000), WBC to 1300 with ANC 700. No current fever, chills or symptoms of infection. Prior dose reductions of Kyprolis to 20mg/m2 weekly with cyclophosphamide 240mg/m2 weekly). Echo with normal EF 55-60%. We will further dose reduce cyclophosphamide to 180mg/m2 (overall 40% dose reduction) and maintain Kyprolis at 20mg/m2. She has ongoing decline of lambda light chains over the past 6 months indicating response. I discussed her case with Dr. Piter Benavidez who notedtherapy could be held if worsening cytopenias. For now continue monthly followup with myeloma labs (quant immunoglobulins and kappa/lambda light chains). Bleeding precautions and f/u sooner if new symptoms arise. Moderate complexity 35-minute visit for review of complex labs and adjustment of chemotherapy regimen. 10/29/2022: I asked Mojgan to return today due to cytopenias on labs and discussion of either dosereduction or changing therapy. She notes that over the last 2 weeks she has had cough, body aches, worsening fatigue, but no fever. She was diagnosed with a non-COVID viral syndrome. Her symptoms arestarting to get better but she has more significant cytopenias with absolute neutrophil count of only 400 with total white blood cell count 1000. In addition her platelet count is 31,000 she has not had any active bleeding issues. We were unable to contact her to tell her not to come in for chemo but I decided to see her today since she was last evaluated by nurse practitioner last 2 visits. Hermyeloma labs show relatively stable lambda light chains which appear to have responded since start oftherapy in July. She is due for her echocardiogram and due to her cytopenias we will hold therapy today and plan 1 level dose reductions of both cyclophosphamide (from 300 to 240 mg/m2 IV weekly)with Kyprolis dose reduction (from 27 to 20mg/m2 IV weekly). She has been off therapy past 2 weeks due to cytopenias. If she is unable to resume therapy we may consider an alternate therapy such as Blenrep. She is otherwise in agreement with current plan of care. Moderate complexity 35-minute visitfor review of complex labs and adjustment of chemotherapy regimen. 10/15/2022: Mojgan is here for follow-up for her multiple myeloma on modified CYKLONE therapy. Shecontinues to do well and remains active at home. She deniesshortness of breath, chest pain, nausea,vomiting, diarrhea or constipation. Sheis eating and drinking well. No fevers, chills, sweats, bleed ing or rash. She does note mild tongue soreness and on exam it appears she may be developing thrush, very mild currently on the tongue only. We will prescribe nystatin for this. Labs are reviewed andstable overall, ok for treatment. She will follow-upin 4wks with Dr. Marinelli with repeat labs and treatment. 09/17/2022: Mojgan is here for follow-up on modified CYKLONE therapy for her multiple myeloma. Shecontinues with fatigue, but otherwise no new complaints. She has no s/s of infection, no shortness of breath, chest pain, n/v/d or other concerns. In review of her labs, her WBC are 1.4, ANC 0.6 and platelets 43,000. Per Dr. Marinelli, given no s/s of infection and she otherwise feels well, she is okfor treatment. We discussed signs to report related to infection such as fever, chills, etc. and she will call with any concerns. We will follow-up in 3wks withrepeat labs. 08/20/2022: Mojgan is here for 3-week follow-up on modified CYKLONE therapy (cyclophosphamide 300 mg/m2 IV weekly, dexamethasone 20 mg IV weekly, and carfilzomib now 56 mg/m2 IV weekly). Baseline echocardiogram 07/18/2022 showed normal ejection fraction 60 to 65%. I discussed her case with Dr. Benavidez who advised that despite her significant thrombocytopenia she should be treated withfull dose cyclophosphamide/carfilzomib and may support with transfusions as needed. The patient's lowest platelet counts were in the 30,000's after her first week of therapy but now is up to 56,000. She has not hadany clinical bleeding. She also has persistent leukopenia 1900 today with absolute neutrophil countnow 1000. At this point as long as she does not have any significant symptoms of therapy or signs of infection or active bleeding we willcontinue her current dosing. She otherwise notes mild fatigue but no other toxicities. Prior skin rash on Pomalyst has resolved. She will follow-up in 3 weeks fortoxicity check with nurse practitioner and we will order her restagingmyeloma labs with serum protein electrophoresis with immunofixation, quantitative immunoglobulins, and kappa/lambda light chain ratio. She may return sooner if new issues arise. Moderate complexity follow-up over 30 minutes to address cytopenias on CYKLONE therapy. 07/10/2022: Mojgan is here for 2-month follow-up of myeloma labs. No changes in medical history and platelet count remains in the 40-50,000 range without bleeding. We held her Pomalyst (as well as daratumumab) this week due to absolute neutrophil count of 300 without any recent infections. She previously held it for 1 week due to neutropenia, took 1 tablet, then had to hold a second week due to neutropenia. We reviewed her kappa/lambda light chain ratio which continues to progress in the wrong direction (total lambda light chains now increased from 109 to 125.7 with ratio from 0.11 to 0.08). Her progressive cytopenias and worsening light chains likely reflects progression of myeloma. We could repeat her bone marrow biopsy but her most recent bone marrow biopsy on10/09/2021 showed hypercellular bone marrow (30%) with slight megakaryocytic and granulocytic hyperplasia and only 1.5% plasma cells (Lambda restricted by flow cytometry). This likely would not change her current management and I discussedher case with Dr. Benavidez of malignant hematology who recommended considering carfilzomib (Kyprolis) with cyclophosphamide. I will contact patient to coordinate baseline echocardiogram forKyprolis and likely she will require dosereductions for her underlying hepatic dysfunction and chronic cytopenias. AfterI reviewed dosing with Dr. Benavidez and pharmacy and review her echocardiogram, jayne coordinate follow-up for change in therapy and chemotherapy consent. For now we will continue daratumumab with altered dose of Pomalyst to 2 mg twice weekly ( and Mondays) until change in therapy. I will not likely send dose reduction of Pomalyst due to planned change in therapy. Moderate complexity 35 minutes for coordination of care. 05/07/2022: Improved rash on 2 mg of Pomalyst, now mild pruritus. Platelet count is 48,000 without bleeding issues. Continues weekly prednisone. Daratumumab isnow monthly since early April. Repeat kappa/lambda light chain ratio slightly higher (106 to 109) But the upward trend is starting to flatten out. F-18 Axumin PET/CT shows no new lesions, relatively stable from 1 year ago. For now given her stable symptoms and pronounced cytopenias, we will continue her current dosing daratumumab/Pomalyst/dexamethasone. Next follow-up with me in 2 months. She will return sooner for issues arise. Moderate complexity visit over 35 minutes. 04/09/2022: Mojgan continues every 2-week durvalumab with Pomalyst now 2 mg daily (dose reduced due to diffuse rash). She is now day 14 of the cycle and isnoted to have platelet count of 40,000 (no associated mucosal bleeding, bright red blood per rectum, or hematuria). No recurrent rash on this dose. She continues her weekly prednisone. I recommended changing her schedule of Pomalyst to 2 mg daily for days 1 through 14, off days 15 through 28 cycle and continuing daratumumab. Her most recent immunoglobulins have shown a steady trend upward for lambda light chain and decrease of kappa/lambda light chain ratio, however since she is now stabilizing her dosing of daratumumab/Pomalyst/dexamethasone I recommend continuing her current dosing for1 more cycle with repeat kappa/lambda light chain ratio in another month. In addition I will set her up for F-18 Axumin PET/CT to compare to PET/CT from 1 year ago (her skeletal survey showed no lesions 6 months ago). She denies any current bone pain.She will proceed with daratumumab dose as previously orderedtoday. 03/19/2022: Mojgan is here for follow-up after adverse cutaneous reaction to her first cycle of Pomalyst. She noted that after starting her first dose of Pomalyst 3 mg daily on 03/05/2022 that about 1 week later on 03/13/2022 she had a diffuse rash all over that was pruritic with increased erythema. She did not have nausea, vomiting, constipation, diarrhea, dyspnea, or any other adverse reactions. She did have a decline of platelet count to 41,000 this week which may be due to her Pomalyst. She called the pharmacy and was instructed to discontinue Pomalyst on 03/13/2022. Her rash has mostly resolved with no furtherpruritus but she still has a few macular lesions over the legs. She has been using Benadryl and topical cortisone cream with improvement of the rash. Otherwise her laboratories are stable. She does have an increased kappa/lambda light chain ratio from 03/05/2022 but this was her first day of therapy. I recommended resuming Pomalyst at next dose level 2 mg daily as soon as new medic ation arrives for 3 weeks on 1 week off. If she has recurrent rash she will again stop and we will consider further dose adjustment. Due to her thrombocytopenia we will hold her daratumumab today andconsume with first day of Pomalyst next week. She may follow-up in about 3 to 4 weeks, possibly with virologist covering at that time. Patient expressed understanding. 02/19/2022: Mojgan is here for follow-up--no new symptoms but her platelet countdropped to 48,000 last week and we are again holding her Revlimid. She has not had any bleeding or infection recently, but she has had uptrending lambda light chains and we discussed changing her therapy from lenalidomide to pomalidomide and continuing her daratumumab which is currently every other week. Her only other concern is constipation which is likely related to her pain medications. ANC was 800 today. --Today we reviewed chemotherapy counseling for lenalidomide in combination withdaratumumab/dexamethasone (stopping Revlimid). Common toxicities were reviewed to include allergic reactions, myelosuppression, thrombosis, fatigue, nausea, vomiting, constipation, diarrhea, mouth sores, and risk of secondary malignancies. Other toxicities may include pneumonitis, neurologic, hepatic andrenal toxicities. The patient signed informed consent and will follow-up as directed. Planning a trip to [place] on March 06, therefore we will hold Revlimid until arrival of her pomalidomide, then have oral chemotherapy visit. We are starting pomalidomide at 3 mg daily days 1 through 21 every 28 days due to baseline liver dysfunction. Follow-up cycle 1 week 2. We will recheck her baseline myeloma labs on start day of pomalidomide with daratumumab. 01/22/2022: Mojgan has no new complaints. She was seen by Dr. Benavidez at for evaluation for transplant and CAR-T options but given her profound thrombocytopenia, neither of these options are felt tuyet optimal for her. She has had gradual worsening of her lambda light chains without any change of renal function or hypercalcemia. Her chronic thrombocytopenia has remained in the 40- 50,000 range which is lower than her prior baseline. I reviewed her options with Dr. Benavidez and it is difficult to assess best options due to her chronic thrombocytopenia but standard of care at this point would be to continue her daratumumab and transition from the lenalidomide to pomalidomide. We will follow closely with weekly CBCs to determine if thrombocytopenia worsens on thisregimen. I will defer changing her regimen for 1 month since she is starting a new cycle of lenalidomide and has had slow progression of her lambda light chains. She will return in 1 month and will discuss pomalidomide and signed in formed consent. Patient is in agreement with this plan. 12/18/2021: Mojgan is here for 3-month follow-up. She has not had any significant changes in medical history other than testing positive for coronavirus infection in early November 2021. She has not been immunized for coronavirus. She notes persistent fatigue but no bone pain. No other recent infections or bleeding episodes. She recently changed from weekly to now every 2 weeks daratumumab 16 mg/kg and remains on low-dose lenalidomide 5 mg daily for2 weeks on 1 week off due to prior thrombocytopenia worsening. October 2021 skeletal survey showed no osteolytic lesions suggestive of myeloma. Initially she had improvement of her platelets to 70-100,000 but today platelets are down to 54,000. She also had some improvement of leukopenia but this is again down to 2800 with ANC 1300 today. Urinerandom M spike is not observed, but she has had progressive increase of her lambda light chains from 30 in December 2020 to 60.2 in October 2021. [place] lambda ratio has also started to decline to 0.21 in October 2021. For now I'm continuing her daratumumab with Revlimid at current dosing, but I contacted Dr. Benavidez at [facility] for CAR-T celleligibility. If he has recommendations to change her therapy, I will let her know. Otherwise I will have her follow-up with me in 1 month (she will have repeat myeloma labs 1 week prior to visit). 09/20/2021: After telephone consultation with Dr. Benavidez at , we resumed repeat loading doses of weekly daratumumab 16mg/kg and changed to low dose lenalidomide 5mg daily. She has had 2 courses of antibiotics for sinus infection over the past month and was noted to have neutropenia with ANC 900, platelets 44,000 week 2 of Revlimid, therefore this was held for one week and resumed Thursday after ANC returned to 1000. Platelet counts have persisted at 40-50,000 range without active bleeding. Otherwise tolerating therapy well. Still improved hip pain and ambulation after recent course of palliative radiation therapy. For now we will continue Daratumumab with Revlimid and Dexamethasone as ordered with weekly CBC. Gradually increasing lambda light chains--pending evaluation at for CAR-T celltherapy eligibility (has not yetbeen contacted for appointment). 4 week f/u with me with CBC, CMP, and myeloma labs (follow quant immunoglobulins and [place]/Lambda light chain ratio with skeletal survey in 2 weeks so results available for appointment). 08/30/2021: Mojgan is here for 2-week follow-up for completion of her palliative radiation therapywith significant improvement of pain in her right hip and pelvis. We sent her for echocardiogram performed 08/23/2021 at [facility] [place] as baseline for possible Kyprolis therapy. This returned with ejection fraction 60% which is normal with grade 1 left ventricular diastolic dysfunction and 1+ tricuspid valve regurgitation and trace to 1+ aortic valve regurgitation.Otherwise unremarkable. I discussed her case with Dr. Benavidez of malignant hematology at [facility]. He advised against Kyprolis therapy given her underlying liver dysfunction and recommended repeating loading doses of daratumumab weekly as well as low-dose lenalidomide which we will start at 5 mg daily since she has chronic thrombocytopenia. We will send for CAR-T therapy as a possible therapeutic option. The patient agreed with changing daratumumab to weekly and we will haveher sign consent next week for change to low-dose lenalidomide therapy. Next follow-up with me will be in about 2 weeks for week 2 lenalidomide with daratumumab. 08/16/2021: One month followup, she recently completed palliative radiation therapy to right hip and pelvis. Platelet count still in 50,000 range with increased bruising but no bleeding. Still has some pain in right hip but slowlyimproving after radiation therapy. Slowly worsening lambda light chain --she is scheduled for ECHO next week. We discussed possibly changing therapy from Daratumumab, Velcade, Dexamethasone to Kyprolis, low dose lenalidomide, dexamethasone if adequate cardiac function. I will discuss this with Dr. Benavidez for dosing and determine if CAR-T therapy is another possible option (although we may be limited due to chronic thrombocytopenia and liver disease). Followup 2-3 weeks to review results and possible consent for change in therapy. 07/17/2021: 2-month follow-up on multiple myeloma. She reports that Thursday she developed severe painin the right leg that started proximal to the knee creating it to the hip. She had increased pain with weightbearing on the right and has been using a walker at home secondary to this. She did not feel a pop or shift in ambulation, but has been using her Percocet for pain control at home. In reviewing her laboratories platelet count remains in the 52,000 range and she is otherwisPe tolerating daratumumab well. I recommended sending for right hip, femur, and knee plain film imaging that did not show any fracture. She does have a gradually rising lambda light chain but no other significant changes in her labs. I reviewed her case with Dr. Cheng of orthopedic surgery who also reviewed her prior PET/CT showing uptake in this area. We will obtain a right hip MRI, keep her completely nonweightbearing on the right leg with walker for transfers and she has an urgent orthopedic follow-up following her MRI. I will follow-up with her in 1 month to review management and we will determine if she requires prophylactic kenton for stability of the hip based on herMRI. 05/24/2021: Here to followup 05/03/2021 bone marrow biopsy--noted to have decreased cellularity 25%, flow cytometry with 0.2% plasma cells and a 1.5% monoclonal B- cell population. FISH showed 13q and 1qabnormalities but normal cytogenetics. No myelodysplasia seen. I reassured her that recent thrombocytopenia is more likely related to splenic sequestration from liver disease and not worsening myeloma. For now continue current regimen. Will also recheck B12, folate, and iron profile with next labs--followup in 2 months with myeloma labs, sooner prn. 04/24/2021: 1 month followup to review PET/CT. Over the past 2 days, she notes episodes of sharp left sided neck pain over sternocleidomastoid muscle and mastoid area. No radiculopathy down left upperextremity. No new side effects of Daratumumab. F18 PET/CT shows largely unchanged diffuse uptake through multiple bony sites in axial and articular skeleton. Lambda light chains risingover past 2 month and decline of platelet count to 57,000 without bleeding. MRIof thoracic spine did not show significant thoracic canal stenosis. Due to worsening neck pain with extensive uptake on F18 PET/CT--we will send for cervical MRI. Palliative medicine has increased Percocet to tid. We will repeat bone marrow biopsy due to rising lambda light chain and falling platelet count to determine if progression of myeloma noted. This will be scheduled in the next 1-2 weeks. 03/28/2021: 2 month followup for multiple myeloma. More recently notes neck andleft shoulder pain. Fatigue and constipation stable. Labs show stable anemia and thrombocytopenia. Serum M-spike now asymmetric gamma (no quantifiable spike). Slowly improving IgG to near normal. [place]/lambda light chain ratio normal with mildly increased lambda light chains. MRI of thoracic spine for evaluation of increasing left shoulder pain. For now we will continue current dosing of Daratumumab and recheck F18 PET/CT for response in late April 2021. 01/21/2021: Mojgan is accompanied by her daughter for 2 month followup--now Daratumumab maintenance. She notes persistent fatigue and recently added as needed laxatives to stool softener for management of constipation. Persistent left hand pain--correlates to an area of bone uptake on PET/CT. Overall F18 PET/CT appears stable with no new areas if FDG avidity (still extensive bone FDGuptake). We reviewed prior plain xrays of left hand from November--she agrees toevaluation by orthopedic surgery (determine if biopsy or steroid injections). M-spike and kappa/lambda light chains pending. CBC (platelets 60-70,000); CMP stable. Will followup in 2 months with exam and labs. 11/26/2020: Mojgan is accompanied by her daughter for 2 month followup--now Daratumumab maintenance. Stable leukopenia/low platelet 70,000. Notes 3 days of hematuria and mild dysuria. Sending UA and possible culture. Otherwise no new bone pain. Blood sugars stable. M-spike and kappa/lambda light chain ratiostable. Next f/u 2 months after one year f/u PET/CT to determine response to therapy. 09/24/2020: Mojgan presents (accompanied by her daughter) for cycle 8, week 2 followup [id number] mg/kg IV weekly, Dexamethasone 20mg weekly, and Velcade 0.7 mg/m? now sq once weekly for every 3-week cycle (21 days). She notes neuropathy symptoms are stable. Tolerating therapy well without fatigue. No bleeding and thrombocytopenia stable in 60-70,0000 range. On 10/02 she will be due for maintenance therapy with Daratumumab alone once per month. I will f/u with her in 2 months with myeloma labs, sooner as needed. Velcade and Dexamethasone will be stopped after 8 cycles. 08/13/2020: Mojgan is here for cycle 6, week 2 (day 14) daratumumab 16 mg/kg weekly, Velcade 0.7 mg/m? now sq once weekly for every 3-week cycle (21 days), and dexamethasone 20 mg weekly. No new symptoms--improving thrombocytopenia to 79,000 and improved leukopenia. 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 Still has improvement of M-spike, IgA normal and decreased lambda light chain and K/L ratio. We discussed that week 25 in Oct she will change to monthly daratumumab with weekly Velcade (1mg/m2) and Dexamethasone. Continue to follow every 6-8 weeks until maintenance schedule. 06/18/2020: Mojgan is here for cycle 3 week 3 (day 21) daratumumab 16 mg/kg weekly, Velcade 0.7 mg/m? now sq once weekly for every 5-week cycle (35 days), and dexamethasone 20 mg weekly. Tolerating well with stable leukopenia and thrombocytopenia. Mild increased symptoms of hand and foot neuropathy, but no limitation in activity. Now following with diabetes management clinic with variable glucosecontrol. We reviewed lower IgA (now M-spike IgG kappa after Daratumumab--previously IgA lambda). Lambda light chain has decreased from 516 to 41.3 to now 18.5 with normalization of K/L ratio. Continue followup myeloma labs in 6 weeks, visit in 8 weeks. 05/21/2020: Mojgan is here for cycle 2 (week 7 overall) daratumumab 16 mg/kg weekly, Velcade 0.7 mg/m? now sq once weekly for every 5-week cycle (35 days), and dexamethasone 20 mg weekly. Tolerating well with stable leukopenia and thrombocytopenia. No significant neuropathy. Noted to have improvement in lambda light chains. No further daratumumab infusion reactions. No infections,stable constipation, pain control improved. No other complaints. Continue monthly f/u with myeloma labs. --Diabetes management--added insulin on dexamethasone days. Hyperglycemia improving. 01/18/2020 (phone followup)--The patient's son was available by phone and her daughter was contactedin a separate phone call as patient presented unaccompanied due to COVID-19 precautions in our clinic during the current epidemic. Bone marrow biopsy results were reviewed as follows from procedure pe rformed 01/26/2020: --Bone marrow biopsy was suboptimal for evaluation. --Increased lambda light chain restricted monoclonal plasma cells (1.9% by flow cytometry, approximately 6% and aspirate count, but 50% by immunohistochemical stains [id number]). Sideroblastic iron present, negative for ring sideroblasts. Peripheral blood smear with mild red blood cell anisocytosis and polychromasia, leukopenia with absolute neutropenia (1000) and thrombocytopenia (54,000) consistent with prior baseline. Note: I discussed the results with Dr. Crook 01/26/2020. Preliminary findings were also discussed with Dr. Cummings 01/27/2020. Morphologic findings, immunohistochemical stains, flow cytometry, and ancillary studies may under represent the extent and severity of disease. The results of FISH myeloma panelwith prognostic markers and cytogenetic analysis are pending. --Given the patient's hip pain and presence of lytic lesions, she meets clinicalcriteria for activemyeloma. Given her hip pain and lytic lesions in weightbearing areas she was offered radiation therapy. She had a limited courseof hypofractionated palliative therapy to bilateral proximal femurs [address] Ahn. We discussed that given the COVID-19 epidemic and absence of othersignificant changes other than bony lesions (normal renal function, normal calcium, stable cytopenias), I would defer active therapy for myeloma for 4 to 6 weeks. Since she has significant history ofliver disease I will discuss her case with Dr. Piter Benavidez at [facility] malignant hematology for optimal regimen. The patient is not a transplant candidate given her nonalcoholic steatohepatitis and chronic thrombocytopenia but may be a candidate for either doublet therapy (Revlimid/dexamethasone) or triplet therapy with either Velcade/Revlimid/dexamethasone or daratumumab/Revlimid/dexamethasone. --02/03/2020: Mojgan presented unaccompanied for follow-up of bone marrow aspiration and biopsy performed by Dr. 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 The patient had been noting increased left hip pain over the past several months andplain films of the pelvis and bilateral femurs did show subtle lucencies in the bilateral proximal femurs corresponding to PET/CT findings but no other additional sclerotic lesions identified. No pathologic fractures were seen. --03/05/2020: Mojgan notes improvement of bilateral hip pain since radiation. No other changes in medical history in the past month--no infections, normal renal function, no hypercalcemia. Stable platelet counts without bleeding. She was given written literature regarding Dexamethasone, Velcade (that would be dose reduced to 0.7mg/m2 twice weekly), weekly Daratumumab and Revlimid, but I will deferdecision of which regimen to use until discussion in malignant hematology tumor board. Also referring for infusion port placement prior to initiating therapy. Sign informed consent prior to initiating therapy. --Discussed with Dr. Benavidez who favors Daratumumab combination--will request prior liver biopsy and records from [facility] liver clinic. The patient and her son (by telephone) expressed understanding and will follow- up as directed in 2 weeks for consent and likely start of therapy. --04/02/2020: Mojgan presents after infusion port placement at [facility] by interventional radiology due to platelet count 40,000--she had increased bruising at site post procedure, but this has completely resolved. Her hip painis well controlled since completion of palliative radiation and no newareas of pain. She has previously reviewed information regarding Daratumumab (first dosesplit 8mg/kg IV D1,D2, then if well tolerated 16mg/kg IV weekly), Velcade at about 50% dose (for liver dysfunction) 0.7mg/m2 D1,D4,D8, D11, and [id number] IV weekly--repeat for every 3 week cycles 1st 3 cycles. She will take chemo class and likely start therapy within 2 weeks with toxicity visit in 3 weeks. Today we reviewed chemotherapy counseling for Daratumumab, Velcade, and Dexamethasone. Common toxicities were reviewed to include infusion reaction including rash/dyspnea/wheezing, myelosuppression, fatigue, nausea, vomiting, constipation, diarrhea, mouth sores, and alopecia. Other toxicities may in cludepneumonitis, neurologic, thromboembolism, hyperglycemia, hepatic and renal toxicities. The patient signed informed consent and will follow-up as directed. --04/19/2020: Mojgna is here for cycle 1 week 2 daratumumab 16 mg/kg weekly, Velcade 0.7 mg/m? twice weekly for first 2 weeks of every 3-week cycle, and dexamethasone 20 mg weekly. She did have an infusion reaction with first daratumumab with dyspnea and flushing but this improved after first dose and shehas not had recurrent infusion reactions. We have continued Velcade despite platelet counts in the 40,000 range without bleeding as we know that her baseline platelet counts remain in this range and she has not had any significant change from her baseline. Dexamethasone has caused hyperglycemia with blood sugars up to 400 and we are referring to diabetes management clinic. Otherwise she denies any significant nausea, emesis, fever, chills, night sweats, constipation, diarrhea, rash, mouthsores, or alopecia. She has not hadany change of baseline neuropathy. Liver function tests remain stable. She notes that her hip pain is well controlled since prior palliative radiation and she saw radiation oncology earlier this week with no new recommendations. I will send her myeloma labs including serum and urine protein electrophoresis, quantitative immunoglobulins, and serum kappa/lambda light chains in 2 weeks andfollow-up with her in 3 weeks. She may be seen sooner if new issues arise. - This is a 67-year-old lady on chronic disability has a history of arthritis, diabetes mellitus, hypertension, COPD, GERD, and fibromyalgia who was previouslyfollowed [facility] for chronic mild to moderate thrombocytopenia. She states that she was followed with Dr. Kumari prior to his senior care and was told that she had an elevated protein level as well as thrombocytopenia but never had clinical bleeding. She is 4 para4 without complicationsand was never told that she was thrombocytopenic while . She is had multiple prior surgicalprocedures without any clinical bleeding. She had been recommended for a pain procedure with Dr. Wilson but he declined to do the procedure because her platelet count was less than 100,000. For this reason she received 2 platelet transfusions, with little improvement of her platelet count and her second transfusion resultedin throat tightening due to allergy to platelets . She has never been treated with steroids and has never been told that she has immune thrombocytopenia. Shehas mild leukopenia with relative neutropenia, absolute neutrophil count of 400-800 and mild lymphocytosis. Hemoglobin is normal. She has not had any bright red blood per rectum or epistaxis. She has no history of bleeding within the family however does have a mother and sister diagnosed with colon cancer, a brother diagnosed with lung cancer, and another sister diagnosed with breast cancer. She had prior pain in the right hand mainly at the first MCP joint with some associated swelling and right foot pain and was evaluated by podiatry. She was told that her blood tests were negative forgout. She had screening with MALLORY, CCP, and rheumatoid factor all of which were negative. She says that she previously saw Dr. Petersen for cirrhosis but did not know of any specific therapy. We reviewed these findings from her liver ultrasound ordered by Dr. Benavidez Summer 2016. Initial consultation with me March 16, 2017. --The patient has been followed by me for some time for diagnosis of smoldering myeloma with a prior bone marrow biopsy May 2017 showing 15% plasma cells but the patient remained asymptomatic without bone pain or other CRAB criteria for therapy. She is also noted to have an ascending aortic aneurysm and has chronicliver disease with cirrhosis secondary to nonalcoholic steatohepatitis. She haschronic thrombocytopenia without bleeding ranging from 50-100,000 this is felt to be due to sequestration from her nonalcoholic steatohepatitis. She was previously on a liver transplant list but was recently notified that she is no longer a candidate for liver transplant. She has had chronic pain from f ibromyalgia but noted increasing bilateral hip and upper thigh pain over the last 6 months. She also is followed for EGD/colonoscopy with last documented procedure 09/21/2018: 1. Normal EGD, 2. Mild sigmoid diverticulosis, 3. Internal hemorrhoids, grade 2, 4. Anal fissure with active bleeding cauterized by bipolar cautery Bone osseous survey in June 2019 showed osteopenia and degenerative changes but no lytic or blastic lesion. Patient had an F-18 PET scan 01/02/2020 which showed multiple areas of involvementof bones with increased SUV activity. She was contacted with these results by phone and I recommended bone marrow aspirate and biopsy for assessment and analysis. Her prior labs were reviewed. Her SPEP does not show anymonoclonal gammopathy. On VAHID there appears to be a trace of monoclonal gammopathy. Free light chain ratio is less than 100. There is no evidence of renal sufficiency. Patient is not anemic. She doeshave some abnormal areas on bone scan. - Summary of Therapies Summary of Therapies: 1. 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 2. She underwent a single dose of palliative radiation therapy to bilateral hips, receiving 800 cGyto right and left hip in 1 fraction in separate vaz (with a single isocenter). The treatments were given with AP/PA vaz [id number] MV photons and MLC blocks. 3. Deferred active therapy for myeloma 2 months given COVID-19 epidemic with increased risk of myelosuppression and viral transmission of contacts. --Follow-up 03/05/2020 I discussed her case with Dr. Piter Benavidez at malignant hematology. --Given her significant hepatic dysfunction, I presented her case at malignant hematology tumor board to discuss optimal therapy. 4. Cycle 1 day 1 04/10/2020: Dose reduced Velcade 0.7 mg/m? twice weekly (day 1,day 4, day 8, day 11)every 3 weeks with dexamethasone 20 mg weekly and daratumumab 16 mg/kg weekly of each 21-day cycle.After first week, Velcade decreased to 0.7mg sq weekly due to thrombocytopenia. --We will need to watch liver function, platelet count, and neuropathy closely on Velcade. 5. Cycle 9 day 1 10/02/2020: Daratumumab 16mg/kg once monthly maintenance therapy until progression. 6. 07/31/2021: Palliative radiation therapy to right supra chondral/soft tissuearea of hip which is PET positive. She received a dose of 3000 cGy in 10 fractions from 07/31/2021 to 08/15/2021 over 15 elapsed days 7. 08/30/2021: Right hip pain improved after radiation. Due to disease progression with persistent cytopenias, changed to repeat loading doses of daratumumab 16 mg/kg weekly for cycles 1 through 3 with Revlimid 5 mg daily for 3 weeks on 1 week off. Held Revlimid second week due to neutropenia with sinus infection, resumed 3 days ago (09/17/2021). Referred for CAR-T therapy evaluation. 8. 12/18/2021: Daratumumab is now 16 mg/kg every 2 weeks with Revlimid 5 mg daily for 2 weeks on 2 weeks off due to neutropenia and thrombocytopenia. Stillpending evaluation for CAR-T therapy. 9. 01/22/2022: Patient is not deemed a candidate for stem cell transplant or CAR- T therapy at this time. Discussed changing from current Revlimid to pomalidomide with continued daratumumab 16 mg/kg every 2 weeks. Plan change in therapy in 1 month. 10. 02/19/2022: Continue daratumumab 16 mg/kg IV every 2 weeks and changed to pomalidomide now 3 mg daily days 1 through 21 of each 28-day cycle (lower dose due to baseline liver dysfunction) -- 03/19/2022: Patient was noted to tolerate Pomalyst only 1 week (03/05- 03/13/2022)due to grade 3 rash. This resolved after stopping medication 1 week later. 1 dose level reduction Pomalyst to 2 mg daily days 1 through 21 of each 28-day cycle. Also holding daratumumab daily for platelet count of 41,000 and will resume at full dose with first dose of Pomalyst. -- 04/09/2022: Platelet 40,000 without bleeding. Will continue monthly Daratumumab with change of Pomalyst to 2mg D1-14 each 28 day cycle (off 2 weeks due to low platelets). Rising lambda light chains,unable to tolerate Pomalyst due to cytopenias, stopped mid 07/2022. 11. 07/18/2022: carfilzomib (dose 20mg/m2 day one then 27mg/m2 D8, D15) with cyclophosphamide 300mg IV weekly and weekly dexamethasone. Baseline echocardiogram EF 60-65%. We will follow closely for her chronic cytopenias andliver dysfunction. -- 10/29/2022: Regimen on hold for past 2 weeks due to cytopenias. Today with ANC 400, holding another week and will reduce dose of carfilzomib to 20mg/m2 IV weekly with cyclophosphamide 300-->240mg/m2 IV weekly, continue weekly dexamethasone. -- 11/26/2022: ANC 700, Platelets 40,000. Continue carfilzomib 20mg/m2 IV weekly with cyclophosphamide 300-->240-->180mg/m2 IV weekly, continue weekly dexamethasone. -- Carfilzomib/cyclophosphamide on hold since 12/04/2022 due to cytopenias, pending evaluation by for bispecific antibody therapy. --01/09/2023: Improving cytopenias ANC 900, platelets 68,000. Hold 2 more weeks, then resume carfilzomib 20mg/m2 IV weekly with cyclophosphamide 300-->120mg/m2 IV weekly ROS Details: All systems reviewed & no additional complaints except as documented Subjective/ROS - Narrative: No change in review of systems from 12/26/2022. Constitutional: No Chills, No Diaphoresis, Stable Fatigue, No Fever, No Malaise, No Night Sweats, No Weakness, No Weight Gain, No Weight Loss Gastrointestinal: No Abdominal Pain, No Black Stool, No Bloating, No Bloody Stool, positive for constipation, No Diarrhea, No Dysphagia, No Hematemesis, No Nausea, No Postprandial Pain, No Rectal Bleeding, No Rectal Pain, No Vomiting, Other (chronic gastroesophageal reflux stable) --No jaundice or ascites but patient has longstanding nonalcoholic steatohepatitis with cirrhosis, previously followed by [facility] gastroenterology. Cardiovascular: No Chest Pain, No Edema, No Palpitations, No Syncope Genitourinary: No Discharge, No Dysuria, No Flank Pain, Frequency (chronic andunchanged), Resolved Hematuria, No Incontinence, No Nocturia, No Urgency, No Urinary Retention Musculoskeletal: + left shoulder and neck pain as per HPI (no thoracic cord compression). Improvement of prior bilateral hip/thigh pain since radiation; positive for intermittent lumbar back pain, NoChest Wall Tenderness, Improvement of prior Joint Pain, Muscle Stiffness, Myalgia (history of fibromyalgia), --unremarkable skeletal survey June 2019. 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 12/2020: F-18 PET/CT stable. 04/2021 F-18 PET/CT stable. Right hip pain mildly improved after palliative radiation. 04/30/2022 repeat Axumin F-18 PET/CT stablefrom 1 year ago. HEENT: + frontal headache and sinus tenderness/congestion--persistent since late Nov 2022. No Blurred Vision, No Discharge, No Ear Pain, No Epistaxis, No Sore Throat --patient was seen in emergency department November 2019 with persistent epistaxis. She was treated with nasal clip and packing and was advised to continue Afrin. No recurrent bleeding. 2 courses of antibiotics in Aug-Sep 2021 for recurrent sinusitis. 11/30/2022: Polyp only on CT (no air-fluid level). 12/26/22: Augmentin 2 week course and hold chemo. Respiratory: No Cough, No Hemoptysis, mild Shortness of Breath (chronic and unchanged due to COPD),No Sputum, No Wheezing--shortness of breath with daratumumab reaction dose 1 04/10/2020 (given a split dose over 2 days). No recurrent reaction since first dose. Neurological: No Dizziness, Stable Numbness/Tingling (reports long-standing bilateral foot numbness--unchanged since starting low-dose Velcade 04/10/2020), NoPre-existing Deficit (no history of stroke or seizure), intermittent headache Hematologic/Lymphatic: No significant bleeding thrombocytopenia from sequestration/myeloma disease,Bruises Easily, No Enlarged Lymph Nodes, Other (reports allergy to prior platelet transfusion) Endocrine: Excessive Sweating (hot flashes, postmenopausal) Flushing, No Intolerance to Cold, Intolerance to Heat Psychiatric: No Depressed Mood, No Insomnia Integumentary: No Jaundice, No Lesions, positive for diffuse rash on Pomalyst 3mg daily as per HPI.1 level dose reduction to 2 mg daily with only mild rash/pruritus. Due to cytopenias Pomalyst is reduced to 2 mg twice weekly on Mondays and . Stopped Pomalyst in Jul 2022--no recurrent rash. Allergic/Immunology: Previous pruritus with Pomalyst rash resolved off Pomalyst. PMFSH - History Attestation statement: The following information was validated with the patient. Source: Old Records Reviewed - Medical History Medical History: Medical History (Last Reviewed 01/09/23 @ 21:44 by Fabiola Marinelli MD) Aortic aneurysm COPD (chronic obstructive pulmonary disease) Diabetes Fibromyalgia GERD (gastroesophageal reflux disease) Hypertension Iron deficiency Multiple myeloma Neutropenia Smoldering multiple myeloma (SMM) Smoldering myeloma Temporary low platelet count - Surgical History Surgical History: Surgical History (Last Reviewed 01/09/23 @ 21:44 by Fabiola Marinelli MD) H/O: hysterectomy History of appendectomy History of cholecystectomy - Social History Smoking Status: Former smoker Tobacco Type: cigarettes Substance Use Type: None Social History Comments: Lives with son a juli Home Medications & Allergies Allergies erythromycin base [From E-Mycin] Allergy (Verified 01/09/23 10:42) Hives latex Allergy (Verified 01/09/23 10:42) Unknown Reaction moxifloxacin [From Avelox] Allergy (Verified 01/09/23 10:42) Hives Quinolones Allergy (Verified 01/09/23 10:42) Unknown Reaction tetracycline Allergy (Verified 01/09/23 10:42) Unknown Reaction Home Medications carvedilol 12.5 mg tablet 12.5 mg PO BID 11/20/17 [History Confirmed 01/09/23] duloxetine 60 mg capsule,delayed release 60 mg PO DAILY 11/20/17 [History Confirmed 01/09/23] insulin detemir U-100 100 unit/mL (3 mL) subcutaneous pen 26 units subcut QHS 11/20/17 [History Confirmed 01/09/23] oxycodone 10 mg tablet 10 mg PO TID PRN Pain 11/20/17 [History Confirmed 01/09/23] albuterol sulfate 90 mcg/actuation aerosol inhaler 2 puff inhalation Q6H PRN Shortness Of Breath 11/24/17 [History Confirmed 01/09/23] fluticasone 250 mcg-salmeterol 50 mcg/dose blistr powdr for inhalation (Advair Diskus) 1 inh inhalation Q12H PRN Shortness Of Breath 11/24/17 [History Confirmed 01/09/23] omeprazole magnesium 20 mg tablet,delayed release (Prilosec OTC) 40 mg PO DAILY 11/24/17 [History Confirmed 01/09/23] cholecalciferol (vitamin D3) 25 mcg (1,000 unit) capsule (Vitamin D3) 1,000 unitPO DAILY 04/13/19 [History Confirmed 01/09/23] metformin 500 mg tablet,extended release 24 hr 500 mg PO BID 03/05/20 [History Confirmed 01/09/23] ondansetron HCl 8 mg tablet (Zofran) 8 mg PO TID PRN Nausea #30 tabs 04/02/20 [Rx Confirmed 01/09/23] insulin NPH isoph U-100 human 100 unit/mL subcutaneous suspension (Novolin N NPHU-100 Insulin isophane) 20 unit subcut DIRECTED 05/21/20 [History Confirmed 01/09/23] semaglutide 0.25 mg or 0.5 mg (2 mg/1.5 mL) subcutaneous pen injector (Ozempic) 0.5 mg subcut QWEEK09/24/20 [History Confirmed 01/09/23] cyanocobalamin (vitamin B-12) 5,000 mcg capsule 5,000 mcg PO QWEEK 10/29/20 [History Confirmed 01/09/23] vitamin B12 0.5 mg-folic acid 1 mg tablet 1 tab PO DAILY 03/28/21 [History Confirmed 01/09/23] diazepam 5 mg tablet (Valium) 5 mg PO DIRECTED 1 day #2 tabs 07/17/21 [Rx Confirmed 01/09/23] gabapentin 300 mg tablet 600 mg PO TID 07/26/21 [History Confirmed 01/09/23] dexamethasone 4 mg tablet 20 mg PO ONCE 90 days #60 tabs 03/26/22 [Rx Confirmed 01/09/23] lactulose 20 gram/30 mL oral solution 20 g (30 mL) PO BID PRN Constipation #600 mL 04/09/22 [Rx Confirmed 01/09/23] ondansetron 8 mg disintegrating tablet 8 mg PO Q8H PRN Nausea #30 tabs 06/04/22 [Rx Confirmed 01/09/23] dexamethasone 4 mg tablet 40 mg PO ONCE #40 tabs 07/14/22 [Rx Confirmed 01/09/23] acyclovir 400 mg tablet 400 mg PO BID 90 days #180 tabs 09/24/22 [Rx Confirmed 01/09/23] potassium chloride 10 mEq capsule,extended release 10 meq PO DAILY #30 caps 11/18/22 [Rx Confirmed 01/09/23] amoxicillin 875 mg-potassium clavulanate 125 mg tablet 1 tab PO BID 14 days #28 tabs 12/26/22 [Rx Confirmed 01/09/23] fluconazole 100 mg tablet (Diflucan) 100 mg PO DAILY #14 tabs 12/26/22 [Rx Confirmed 01/09/23] loratadine 10 mg tablet (Claritin) 10 mg PO DAILY 12/26/22 [History Confirmed 01/09/23] Objective - Height/Weight Height/Weight: Height 5 ft 2.99 in Weight 85.2 kg BSA for Today's Weight 1.93 - Vital Signs Vital Signs: 01/09/23 10:43 Temperature 97.8 F Pulse Rate [Left Brachial] 87 Respiratory Rate 16 Blood Pressure [Right Arm] 131/83 02 Sat by Pulse Oximetry 98 Oxygen Delivery Method Room Air - Pain Generalized Pain Intensity: 3 Bilateral Hip Pain Intensity: 5 Left Hip Pain Intensity: 4 Lower Back Pain Intensity: 7 Left Neck Pain Intensity: 4 Back Pain Intensity: 0 Right Thigh Pain Intensity: 3 Bilateral Leg Pain Intensity: 5 Generalized Head Pain Intensity: 4 Bilateral Shoulder Pain Intensity: 6 Left index finger Pain Intensity: 4 - Distress Screening Distress Screen Results: RN Distress Screening Start: 02/07/20 10:17 Freq: Status: Complete Protocol: Document 05/01/20 09:33 DB (Rec: 05/01/20 09:33 DB [id number]) Distress Screening Distress Score: 0 No worry/distress Distress Screening Total 0 RN Distress Screening Start: 07/26/21 12:37 Freq: Status: Active Protocol: Document 12/26/22 09:44 LB (Rec: 12/26/22 09:44 LB [id number]) Distress Screening Distress Score: 7 Physical Concerns Feeling tired or a lack of energy,Trouble Sleeping Emotional Concerns Loss of interest in usual activities Distress Screening Total 7 Distress score of 4 or more discussed No with patient? Distress screening follow up: defer to patient navigator Physical Exam Narrative: Patient is alert and oriented x3. Exam deferred--see exam below from 12/26/2022 HEAD / FACE: Normocephalic. No tenderness to palpation over scalp, no sinus tenderness to palpation. EYES: Pupils are equal and reactive to light. Conjunctivae and lids are benign in appearance. Ocular movement intact. EARS: Hearing grossly intact. NOSE / MOUTH / THROAT: + frontal/maxillary sinus tenderness--no improvement after amoxicillin. No oral thrush or aphthous ulcerations. NECK / THYROID: No cervical adenopathy on exam. Thyroid is symmetrical, withoutthyromegaly, masses or palpable nodules. RESPIRATORY: Normal inspection. Lungs clear to auscultation and percussion. No wheezing, rales, rhonchi or rubs. Normal effort. CARDIOVASCULAR: Regular rate and rhythm. No murmurs, gallops, or rubs. ABDOMEN: Bowel sounds normoactive. Soft, nontender and non-distended. No hepatosplenomegaly. No masses. INTEGUMENTARY: The skin is unremarkable. No suspicious lesions or rash. No bruising or petechiae noted. MUSCULOSKELETAL: Normal musculature, normal ROM upper and lower extremities, no crepitus. EXTREMITIES: Trace bilateral leg edema. No cyanosis or clubbing. NEUROLOGICAL: Alert and oriented. Cranial nerves intact. No gross motor or sensory deficits, patient ambulates unassisted. PSYCHIATRIC: No anxiety or evidence of depression. - ECOG Performance Status ECOG Score: 1 Results - Labs Labs: Diagram of Most Recent CBC and CMP 01/08/23 10:10 01/08/23 10:10 Labs - Last 7 Days 01/08/23 10:10: PHA Creatinine Clear 70.94, Sodium 140, Potassium 4.1, Chloride 106, Carbon Vfblsxt90.9, Anion Gap 8.2, BUN 13, Creatinine 0.44 L, Est GFR (CKD- EPI) > 60.0, Glucose 114 H, Calcium9.2, Total Bilirubin 0.9, AST 30, ALT 23, Alkaline Phosphatase 92, Total Protein 5.2 L, Albumin 3.5, Globulin 1.7, Albumin/Globulin Ratio 2.1 01/08/23 10:10: Corrected WBC 1.7 L, Uncorrected WBC Count 1.7 L, RBC 3.06 L, Hgb 10.7 L, Hct 30.8 L, MCV 100.8 H, MCH 35.0 H, MCHC 34.7, RDW 15.8 H, Plt Count 68 L, MPV 10.4, Neut % (Auto) 52.5, Lymph % (Auto) 29.7, Hod[place]eman % (Auto) 14.0, Eos % (Auto) 3.6, Baso % (Auto) 0.2, Nucleat RBC Rel Count 0.1, Neut # (Auto) 0.9 L, Lymph # (Auto) 0.5 L, Hodgeman # (Auto) 0.2, Eos # (Auto) 0.1, Baso # (Auto) 0.0,Platelet Estimate Decreased, Plt Morphology Comment Normal, RBC Morphology N/A, Anisocytosis Slight, Macrocytosis Slight, Tear Drop Cells Slight, Ovalocytes Slight 01/01/23 09:50: Free [place] LC, Quant 6.3, Free Lambda LC, Quant 61.3 H, Free [place]/Lambda Ratio 0.10 L - Impressions 12/29/2022: DEXA --AP Spine T-score + 0.1, normal --Left Femoral Neck -1.0, normal --Right Femoral Neck -1.8, osteopenia Assessment and Plan - TNM Staging Staging: Stage IIIA Multiple Myeloma (Durie Boring criteria) (1) Multiple myeloma Qualifiers: Multiple myeloma remission status: not in remission Qualified Code(s): C90.00 - Multiple myeloma not having achieved remission Mojgan 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 She has high risk cytogenetics and I [facility] Her persistent thrombocytopenia made her ineligible for any clinical trials, and preventedher from receiving local pain procedures given her chronic low back pain. --05/2017 PET/CT images and reports performed for staging to exclude bone involvement with myeloma. 2 indeterminate areas of uptake thought to be degenerative arthritis vs early bone findings of myeloma (right parietooccipital area and upper sternum). She has remained asymptomatic in these areas andwe arranged repeat PET/CT at 6 months with CBC, CMP, SPEP and UPEP with immunofixation, serum kappa/lambda light chain analysis, and quantitative immunoglobulins. --No lytic lesion seen on f/u PET/CT 11/2017 and all labs stable. Also had head CT to evaluate for mastoiditis in 03/2018 unremarkable. 05/2018 skeletal survey showed no lytic lesions and she has stableshoulder, hand, and right SI joint pain (although likely due to fibromyalgia. --Prior osseous survey 07/01/2019 showed osteopenia but no compression fractures or lytic lesions were identified. She had no significant change in myeloma labs(mild increase of urine M-spike, kappa/lambda ratio, and normal serum M- spike and quant immunoglobulins). Urine protein still undetectable, therefore will continue surveillance every 6 months with the same labs--no hypercalcemia, renaldysfunction (or proteinuria), anemia, or new bone symptoms. --Due to COVID- epidemic, her 6-month follow-up was performed by [...] 1) on 02/07/2020 to minimize exposures during COVID- epidemic. --The patient's myeloma labs (December 2019) do show normal quantitative immunoglobulins with IgA lambda monoclonal protein by immunofixation (serum IgA is 272). Her kappa/lambda ratio shows a predominance of free lambda 479 with elevated free kappa 23.6 and abnormal free kappa/lambda ratio of 0.05. Urine immunofixation also shows lambda type Bence-Murray proteins with urine M spike 43.1 but totalprotein 34.4, with no reported urine creatinine. --We deferred immunosuppressive chemotherapy for about 1 month due to control ofsymptoms after palliative radiation and concern of potential peak of COVID-19 inlate January early March. --She presented for follow-up 03/05/2020 and we discussed potential therapy options (with son available by phone). --I discussed her case with Dr. Piter Benavidez of malignant hematology, possibly presenting the patient in hematology tumor board at [facility]. --Infusion port placed 03/22/2020 at [facility] due to low platelets. No complications. --03/12/2020: Myeloma labs with no serum M-spike, + urine M spike 22.2mg/24h (14%). Immunofixation IgA lambda specificity. IgA normal 227, Serum kappa 20.6, serum lambda 516.7, Free kappa/lambda ratio0.04. Normal renal function and calcium. Lower ANC 600 and platelets 40,000 --04/10/2020: Started cycle 1 day 1 of weekly dexamethasone 20 mg IV (careful to watch blood sugars with diabetes and known hepatic dysfunction), decreased dose of bortezomib 0.7 mg/m? twice weekly for2 weeks on 1 week off (due to known liver disease and thrombocytopenia), and daratumumab 8mg/kg D1,D2 IV first week,then 16 mg/kg IV weekly and we may consider Revlimid as a 4th medication if needed (deferred for worsening neutropenia and thrombocytopenia--I am reluctant to add this therapy initially). --------- --01/21/2021: One year f/u F18 PET/CT with stable FDG avidity, monoclonal labs (SPEP, Quant Igs, kappa/lambda ratio) all pending. Stable CBC and CMP. Persistent pain left hand 2nd MCP joint--increaseduptake on PET/CT but no lesion on left hand xray from 11/2020. Sending for ortho evaluation. For nowcontinue once monthly Daratumumab. F/u with myeloma labs and exam in 2 months, sooner prn. --05/24/2021: Bone marrow biopsy does not show significant progression although poor prognosis mutation 1q with 13q on FISH. Hypocellular with recent worseningplatelets without bleeding--will recheck B12, folate, and ferritin. [...] sent for plain films of the hip femurand knee showing degenerative changes but no acute [...] progression although she still has slow rise inlambda light chain and platelet count remains in [...] check. She will sign Revlimid consent Thursday. Sheis in agreement with this plan. --09/20/2021: Started daratumumab loading doses weekly with Revlimid on 09/04/2021. Held therapy forANC 900 and platelet 42,000 with sinus infection, now resolved and resumed Revlimid 5mg daily on 09/17. Will continue therapy as prescribed with weekly CBC and hold Revlimid as needed for cytopenias.Evaluation for [facility]T therapy at [facility]. Send myeloma labs and skeletal survey [...] current cycle of Revlimid with change to pomalidomide4 mg daily, follow weekly CBCs after change in therapy and determine optimal dose based on symptomsand cytopenias. Patient is in agreement with this plan. Next follow-up with me in 1 month and we will defer next light chain analysis until 1 month after change in therapy. --02/19/2022: Continued rise in lambda light chains and worsening thrombocytopenia. Today we reviewed informed consent for adding pomalidomide 3 mg dailydays 1 through 21 every 28 cycle 2 [...] ANC 800, platelet count 58,000. Pomalidomide is dosereduced due to baseline liver dysfunction. -- 03/19/2022: Mojgan was only able to tolerate 5 days of pomalidomide 3 mg daily because she developed a diffuse rash with erythema and pruritus (grade 3). Therapy was stopped after initial cycle was only given 03/05-03/13/2022. Now thatradha has complete resolution of symptoms she may resume pomalidomide at 1 dose level reduction 2 mg daily for days 1 through 21 of each 28-day cycle. We are also holding her daratumumab today due to declining her platelet count 41,000 without bleeding. Repeat kappa/lambda light chain ratio was increased 80 on 4but this was her first dose of pomalidomide. Plan anticipate arrival of pomalidomide within the next 1 to 2 weeks and she may resume daratumumab on day1 of therapy. Her next follow-up will be [...] for following myeloma show normal mild increase herfree lambda from 87 to 106, kappa/lambda ratio decreased 0.10-0.09. I will give her 1 more month ofpomalidomide with daratumumab and dexamethasone. The pomalidomide dose will be changed to 2 mg p.o.days 1 through 14, off days 15 through [...] bony lesions. Her kappa/lambda light chain ratio remainsrelatively stable since early March (0.09-0.11) with free lambda light chainsnow relatively stable (106-109). I advised continuing her current regimen and reevaluating with kappa/lambda light chain ratio in 2 months. Continue current dosing and close observation due to platelet count 48,000. No signs or symptomsof infection. Patient is in agreement with this plan. --07/10/2022: Mojgan has no new symptoms, but continued cytopenias with 2 weeks of pomalidomide helddue to recurrent neutropenia and persistent thrombocytopenia (40-50,000). Continued uptrending lambda light chains consistent with progression of myeloma. We did discuss bone marrow biopsy, but this would not policy change clerk, therefore we will give Pomalyst (now decreasedto 2mg Thursday and only) with last dose Daratumumab tomorrow. 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 --09/17/2022: Mojgan is here for cycle 3 of modified CYKLONE regimen. She continues to do ok with only mild fatigue, no other new complaints or s/s of infection. She is ok to treat per discussion with Dr. Marinelli despite low WBC, ANCand platelets. She will follow-up in 3 weeks [...] CBC, CMP, SPEP, VAHID, immunoglobulins, and FLC. Sheis in agreement with this plan and has no questions. --10/29/2022: Stable symptoms on current therapy. Recent viral infection with worsening cytopenias.She has been off weekly therapy for the last 2 weeks due to cytopenias, therefore we will hold 1 further week and if her blood counts meet parameters, she will have dose reduced Carfilzomib 27-->20mg/m2 IV weekly, Cyclophosphamide 300-->240mg/m2 IV weekly, and Dexamethasone 20mg IV/po weekly. She is overdue for echo which was ordered today and we will check results beforeresuming therapy. Next follow-up with me in 6 weeks or sooner as needed. [place]/lambda light chains were reviewed and doshow partial response over the last 3 months. We will continue to follow at least every 2 to 3 months while ontherapy. . No longer a candidate for Blenrep--access removed by FDA for limitedefficacy. Moderate complexity 35 minute followup visit. --11/26/2022: No new symptoms with ongoing response of lambda light chains but persistent cytopenias. In absence of new symptoms of infection or bleeding, we will continue therapy with further dose reduction of cyclophosphamide to 180mg/m2 IV weekly with stable dose Kyprolis 20mg/m2 IV weekly and Dex amethasone. Discussed with Dr. Benavidez at --he would support holding therapy and observationif persistent cytopenias and consider bone marrow biopsy. For now will continuemonthly followup and myelomalabs every 1-2 months. She may be a [...] persistent cytopenias and sinusitis. She now has LVS877 and platelets 37,000 without bleeding. Relatively stable lambda light chains in 40s range. I will hold therapy another 2 weeks, give Augmentin 875mg bid x 2 weeks for persistent sinusitis (no airfluid levels on CT scan), and send referral to Dr. Benavidez for possible CD3/BCMA bispecific antibody therapy (risk of cytokine release syndromewith first dose, requires inpatient observation at a [...] first week due to risk of cytokine releasesyndrome). Nextfollowup with myeloma labs in 2 months, sooner prn. 30 minute moderate complexity followup. (2) Frontal sinusitis Qualifiers: Chronicity: chronic Qualified Code(s): J32.1 - Chronic frontal sinusitis Sinus CT showed no air fluid levels, and no improvement after Amoxicillin x 2 weeks. Will hold chemo as noted above and give another Augmentin 875mg/m2 bid x2 weeks due to headaches, neutropenia and h/o recurrent sinusitis. Improving symptoms with ANC 900 and platelets 68,000 at 01/09/2023. Resume chemo in 2 weeks. (3) Chemotherapy-induced neutropenia ANC 700. Previously held therapy one week and resumed Kyprolis and cyclophosphamide at 20% DR as noted above. At 11/26/2022 followup, maintained current Kyprolis dose and dose reduce cyclophosphamide another 20% to 180mg/m2 weekly. --Chemo remains on hold since 12/04/2022 (last dose) due to sinusitis with recurrent neutropenia. Plan to resume with cytoxan dose reduction 01/23 due to improving cytopenias. 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 I previously reviewed her outpatient records from [facility] [place], including review of notes, laboratories, and prior bone marrow biopsy 13 years ago. 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 Most recent platelet count is relatively stable at 54,000 but no clinical bleeding. She waspreviously referred to weight reduction clinic and may have slow improvement of steatohepatitis with lifestyle modification. Unless she has active bleeding or planned surgery, we will continue observation during treatment of active myelomato commence next month as noted above. --Agree with recommendation for EGD surveillance for varices (last was 09/2018--negative). This will be deferred during current COVID-19 epidemic. --Prior vitamin B12 and folic acid are normal, for known history of neuropathy. As noted above, I reviewed the negative M spike on serum protein electrophoresiswith immunofixation, but positive for Bence Murray protein on urine protein electrophoresis. Her Quantitative immunoglobulins IgG, IgA, and I gM were all within normal limits, however her serum kappa lambda light chain analysis showeda predominance of lambda light chains. --Previous labs for lupus anticoagulant with DRVVT, hexagonal phase phospholipid, anti-cardiolipin IgG and IgA, and beta 2 glycoprotein IgG and IgA were within normal limits. --Evaluated in ED November 2019 for epistaxis which resolved. Platelet count wasstable at 12/28/2019 follow-up. She continues surveillance with liver clinic at [facility] and I will continue to follow her every 6 months, sooner if newbleeding issues arise. --04/02/2020: We reviewed informed consent for Daratumumab/Velcade/Dexamethasone for active myeloma therapy. I requested prior liver biopsy results and notes from liver clinic at [facility]. Platelet count in 40,000 range but patient has had no active bleeding following infusion port placement 03/22/2020. --08/13/2020: Cycle 6 week 2 toxicity check with improved thrombocytopenia 79,000 range with no bleeding. We will continue current dosing with Velcade 0.7mg/m2 sq (now once weekly), dexamethasone 20 mg weekly, and full dose daratumumab with close follow-up of liver function and platelet counts. --09/24/2020, 01/21/2021, 03/28/2021: Platelets stable 60-70,000 with no new toxicities, started Daratumumab maintenance 10/02/2020. --04/24/2021: Platelets now down to 57,000 with rising lambda light chains. Will eval with repeat bone marrow biopsy due to nonsecretory myeloma. --05/24/2021: Bone marrow hypocellular without significant myeloma progression. Normal B12/folate stores, continue Daratumumab maintenance. --08/16/2021: Persistent thrombocytopenia in 50,000 range, consider change in therapy due to risinglambda light chains. Will check echo and review case withDrErna Caylacatracho at to discuss next line of therapy. --08/30/2021: Stable platelets--decision to resume weekly Daratumumab 16mg first 3 cycles and change to Revlimid 5mg daily 1-21 each 28 day cycle--titrate as tolerated --09/20/2021: Platelets have declined to 40-50,000 range without mucosal bleeding. Held Revlimid atplatelets 42,000 during sinus infection, resumed after one week off. Will follow weekly CBCs on Daratumumab/Revlimid. --12/18/2021, 01/22/2022: Platelets still in the 50,000 range without mucosal bleeding. Current dosing of daratumumab every 2 weeks and Revlimid 5 mg daily 2weeks on 2 weeks off--plan to change to pomalidomide 3 mg daily next cycle. -- 02/19/2022: Last week platelets were 48,000 and we held Revlimid. This week platelets 58,000 but continuing to hold Revlimid due to change to daratumumab 16mg/kg IV every 2 weeks with pomalidomide 3 mg daily days 1 through 21 every 28-day cycle -- 03/19/2022: Platelets were down to 41,000 and we held daratumumab as well as Pomalyst for rash asnoted above. Resume Pomalyst at 2 mg days 1 through 21 every 28 days. Continue daratumumab 16 mg/kgevery 2 weeks. -- 04/09/2022: Platelets down to 40,000. Okay to give daratumumab 16 mg/kg IV every 2 weeks but Pomalyst dose will be changed to 2 mg days 1 through 14 every 28 days. Follow-up 1 month. -- 05/07/2022: Platelets 48,000. Continue monthly daratumumab 16mg/kg IV with same Pomalyst dose 2mg daily D1-14 every 28 days. Extend next follow-up with kappa/lambda light chain ratio to 2 months. --07/10/2022: Platelets 53,000 with ANC now 600 (held Pomalyst one week for ANC 300). May have one dose Pomalyst today, then hold for change in therapy. Will have platelet transfusion as needed for change in therapy to Kyprolis/Cytoxan/Deamethasone. --08/20/2022: Platelets declined to mid 30,000 range about 4 weeks ago--now up to 56,000 and WBC 1600 and ANC 1000 on Kyprolis/Cytoxan/Deamethasone. No activebleeding. Continue current dosing and f/uin 3 weeks. --09/17/2022: Platelets at 43,000 without recent transfusion. WBC and ANC at 1.4and 600 respectively. Will continue with treatment. --10/15/2022: Platelets at 49,000. No s/s of bleeding. Ok for treatment. --10/29/2022: Platelets at 31,000 with ANC 400. Dose reductions recommended asnoted above. No active bleeding. Follow-up 6 weeks. --11/26/2022: Platelets at 40,000 with ANC 700. Dose reduction cyclophosphamideonly as noted above. No active bleeding. Follow-up 4 weeks. --No chemo since 12/04/2022. Platelets 37,000-->68,000. Plan to resume 01/23 withcytoxan dose reduction due to improving cytopenias. She may be a future candidate for bispecific antibodies for multiple myeloma. Still has no bleeding, f/u 2 months. (5) Cancer-related pain Improved symptoms after palliative radiation to bilateral hips--one dose 02/07/2020. Will continue tofollow on myeloma chemotherapy. Extensive, but stable bone involvement on F-18 PET/CT 12/2020 and 04/2021. Recent increased leftneck and shoulder pain. Increased oxycodone dosing to three times daily, no unusual right hip pain is noted above--followed by palliative medicine. -Completed right hip radiation with persistent but improved pain--no new pain issues with follow-upvisit with radiation in early March 2022, follow-up as needed. Will continue to follow with palliative medicine. --12/26/2022: she continues to deny any pain (6) 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) We previously discussed referral to hepatology for management of KAPADIA, but that there are no medications that will likely reverse her thrombocytopenia. She [facility]ref[facility] to attempt weight reduction through diet and exercise that may prevent further fatty infiltration that may further impairher liver function. [facility] hepatology discussed liver transplant but sheis likely no longer a candidate for this given active myeloma. We chose least hepatotoxic regimen for treatment of her active myeloma with 50% dose reduction of Velcade. Liver function remained stable since start of therapy 04/10/2020. --Requested prior liver biopsy and [facility] liver clinic records. Dose reduction 20% Kyprolis due to KAPADIA with cirrhosis (normal bilirubin and transaminases). Stable LFTs on current Kyprolis/Cytoxan/Dexamethasone therapy. (7) Encounter for chemotherapy management Initial Daratumumab maintenance tolerated well without significant toxicities. Bone marrow biopsy did not reveal indication for change in therapy. --09/04/2021: Repeat loading with weekly Daratumumab 16mg first 3 cycles and changed to Revlimid 5mgdaily 1-21 each 28 day cycle--02/19/2022 reviewed informed consent to change to pomalidomide next cycle. --03/19/2022. Pomalyst was stopped after 1 week of therapy on 03/13/2022. Daratumumab held 03/19/2022 due to platelet count 41,000. We resumed both medications on arrival of dose reduce Pomalyst 2 mg days 1 through 21 every 28- day cycle. -- 04/09/2022: Daratumumab is monthly maintenance. Mid July: last dose Pomalyst 2mg today with ANC 600. -- 07/30/2022: Changed chemo to Kyprolis/Cytoxan, normal baseline Echo. -- 10/29/2022: Dose reductions for cytopenias Carfilzomib 27-->20mg/m2 IV weekly, Cyclophosphamide 300--240mg/m2 IV weekly, and Dexamethasone 20mg IV/po weekly. Will continue every 3 week therapy until progression or intolerable toxicity. --11/26/2022: Platelets at 31,000 with ANC 400. Dose reductions Carfilzomib 27-->20mg/m2 IV weekly, Cyclophosphamide 300--240-->180mg/m2 IV weekly, and Dexamethasone 20mg IV/po weekly. Therapy on hold since 12/04/2022 for cytopenias and sinusitis. Plan to resume 01/23 due to improving cytopenias. - Chemo Plan Chemo Plan (Dose, Rate, Freq): Carfilzomib 27-->20mg/m2 IV weekly, Cyclophosphamide 300--240-->180mg/m2 IV weekly, and Dexamethasone 20mg IV/po weekly. On hold since 12/04/2022. Plan to resume 01/23 due to improving cytopenias with cyclophosphamide 120mg/m2 with carfilzomib 20mg/m2 and dexamethasone 20mg IV/po weekly Goal of Treatment: Palliative - Time with Patient Time Spent with Patient (Follow Up Visit): 35 minutes - Mod complexity--resume chemo in 2 weeks forimproving cytopenias and sinusitis, review tertiary hematology referral Coordination of Care & Counseling Time: Greater than 50% of time spent with patient was for coordination of care (as documented) and [id number] counseling of patient and/or family. Dictated By: Fabiola Marinelli MD DD/ 105 Signed By: <Electronically signed by MD Fabiola Marinelli> 01/09/23 [id number] [facility] Work Phone: [phone]) 420-879402-25-2023 Progress note Author Fabiola Marinelli [facility] December 27, 2022 9:59amNote Date/TimeFebruary 2022 9:41[facility] [place] [address] Hem/Onc Follow Up Note - OP Signed Patient: Mojgan Pérez MR#: [id number] : 1955 Acct:[id number] Age/Sex: 67 / F Type: REG RCR Copies to: MD Yinka Downey MD Ehsan Malek, MD Katherine M McGraw, VISUAL MERCHANDISER~ Subjective Date/Time of Service: Date of Service: 12/26/2022 Time of Service: 09:40 Chief Complaint: Patient is here today for one month follow up visit and go overlabs. HPI: 12/26/2022: Mojgan continues to have nasal drainage sinus congestion and pain despite completing 2 weeks of amoxicillin and no air-fluid level on CT Sinuses 11/30/2022. We gave last dose of Kyprolis/Cytoxan (60% dose) on 12/05/2022. Peripheral neuropathy is stable, no diarrhea, no skin rashes. We reviewed her labs with ANC 900, platelets 37,000 and she notes easy bruising but no nasal/oral mucosal, GI or bleeding. I will again hold Kyprolis/Cytoxan another 2 weeks and give 2 weeks of Augmentin 875/125mg bid for her persistent sinus infection and Diflucan 100mg daily for vaginal candidiasis. Will formallyrefer back to Dr. Benavidez to see if she is a candidate for the CD3/BCMA myeloma bispecificantibody therapy which she would need to receive at [facility]. F/u with me in 2 weeks--if persistent cytopenias we may need to repeat her bone marrow biopsy (if now performed by ). She agrees with this plan over this 35 min moderate complexity followup visit. 11/26/2022: Mojgan is here for monthly followup on modified CYKLONE therapy. Notes increased frontal headaches over the past with with nasal congestion--sending for sinus CT and 2 week course of Augmentin bid. Platelet count recently dropped as low as 25-31,000 without bleeding (currently 40,000), WBC [id number] with ANC 700. No current fever, chills or symptoms of infection. Prior dose reductions ofKyprolis to 20mg/m2 weekly with cyclophosphamide 240mg/m2 weekly). Echo with normal EF 55-60%. We will further dose reduce cyclophosphamide to 180mg/m2 (overall 40% dose reduction) and maintain Kyprolis at 20mg/m2. She has ongoing decline of lambda light chains over the past 6 months indicating response. I discussed her case with Dr. Piter Benavidez who notedtherapy could be held if worsening cytopenias. For now continue monthly followup with myeloma labs (quant immunoglobulins and kappa/lambda light chains). Bleeding precautions and f/u sooner if new symptoms arise. Moderate complexity 35-minutevisit for review of complex labs and adjustment of chemotherapy regimen. 10/29/2022: I asked Mojgan to return today due to cytopenias on labs and discussion of either dosereduction or changing therapy. She notes that over the last 2 weeks she has had cough, body aches, worsening fatigue, but no fever. She was diagnosed with a non-COVID viral syndrome. Her symptoms arestarting to get better but she has more significant cytopenias with absolute neutrophil count of only 400 with total white blood cell count 1000. In addition her platelet count is 31,000 she has not had any active bleeding issues. We were unable to contact her to tell her not to come in for chemo but I decided to see her today since she was last evaluated by nurse practitioner last 2 visits. Hermyeloma labs show relatively stable lambda light chains which appear to have responded since start oftherapy in July. She is due for her echocardiogram and due to her cytopenias we will hold therapy today and plan 1 level dose reductions of both cyclophosphamide (from 300 to 240 mg/m2 IV weekly)with Kyprolis dose reduction (from 27 to 20mg/m2 IV weekly). She has been off therapy past 2 weeks due to cytopenias. If she is unable to resume therapy we may consider an alternate therapy such as Blenrep. She is otherwise in agreement with current plan of care. Moderate complexity 35-minute visitfor review of complex labs and adjustment of chemotherapy regimen. 10/15/2022: Mojgan is here for follow-up for her multiple myeloma on modified CYKLONE therapy. Shecontinues to do well and remains active at home. She deniesshortness of breath, chest pain, nausea,vomiting, diarrhea or constipation. Sheis eating and drinking well. No fevers, chills, sweats, bleed ing or rash. She does note mild tongue soreness and on exam it appears she may be developing thrush, very mild currently on the tongue only. We will prescribe nystatin for this. Labs are reviewed andstable overall, ok for treatment. She will follow-upin 4wks with Dr. Marinelli with repeat labs and treatment. 09/17/2022: Mojgan is here for follow-up on modified CYKLONE therapy for her multiple myeloma. Shecontinues with fatigue, but otherwise no new complaints. She has no s/s of infection, no shortness of breath, chest pain, n/v/d or other concerns. In review of her labs, her WBC are 1.4, ANC 0.6 and platelets 43,000. Per Dr. Marinelli, given no s/s of infection and she otherwise feels well, she is okfor treatment. We discussed signs to report related to infection such as fever, chills, etc. and she will call with any concerns. We will follow-up in 3wks witheat labs. 08/20/2022: Mojgan is here for 3-week follow-up on modified CYKLONE therapy (cyclophosphamide 300 mg/m2 IV weekly, dexamethasone 20 mg IV weekly, and carfilzomib now 56 mg/m2 IV weekly). Baseline echocardiogram 07/18/2022 showed normal ejection fraction 60 to 65%. I discussed her case with Dr. Benavidez who advised that despite her significant thrombocytopenia she should be treated withfull dose cyclophosphamide/carfilzomib and may support with transfusions as needed. The patient's lowest platelet counts were in the 30,000's after her first week of therapy but now is up to 56,000. She has not hadany clinical bleeding. She also has persistent leukopenia 1900 today with absolute neutrophil countnow 1000. At this point as long as she does not have any significant symptoms of therapy or signs of infection or active bleeding we willcontinue her current dosing. She otherwise notes mild fatigue but no other toxicities. Prior skin rash on Pomalyst has resolved. She will follow-up in 3 weeks fortoxicity check with nurse practitioner and we will order her restagingmyeloma labs with serum protein electrophoresis with immunofixation, quantitative immunoglobulins, and kappa/lambda light chain ratio. She may return sooner if new issues arise. Moderate complexity follow-up over 30 minutes to address cytopenias on CYKLONE therapy. 07/10/2022: Mojgan is here for 2-month follow-up of myeloma labs. No changes in medical history and platelet count remains in the 40-50,000 range without bleeding. We held her Pomalyst (as well as daratumumab) this week due to absolute neutrophil count of 300 without any recent infections. She previously held it for 1 week due to neutropenia, took 1 tablet, then had to hold a second week due to neutropenia. We reviewed her kappa/lambda light chain ratio which continues to progress in the wrong direction (total lambda light chains now increased from 109 to 125.7 with ratio from 0.11 to 0.08). Her progressive cytopenias and worsening light chains likely reflects progression of myeloma. We could repeat her bone marrow biopsy but her most recent bone marrow biopsy on10/09/2021 showed hypercellular bone marrow (30%) with slight megakaryocytic and granulocytic hyperplasia and only 1.5% plasma cells (Lambda restricted by flow cytometry). This likely would not change her current management and I discussedher case with Dr. Benavidez of malignant hematology who recommended considering carfilzomib (Kyprolis) with cyclophosphamide. I will contact patient to coordinate baseline echocardiogram forKyprolis and likely she will require dosereductions for her underlying hepatic dysfunction and chronic cytopenias. AfterI reviewed dosing with Dr. Benavidez and pharmacy and review her echocardiogram, wewill coordinate follow-up for change in therapy and chemotherapy consent. For now we will continue daratumumab with altered dose of Pomalyst to 2 mg twice weekly ( and Mondays) until change in therapy. I will not likely send dose reduction of Pomalyst due to planned change in therapy. Moderate complexity 35 minutes for coordination of care. 05/07/2022: Improved rash on 2 mg of Pomalyst, now mild pruritus. Platelet count is 48,000 without bleeding issues. Continues weekly prednisone. Daratumumab isnow monthly since early April. Repeat kappa/lambda light chain ratio slightly higher (106 to 109) But the upward trend is starting to flatten out. F-18 Axumin PET/CT shows no new lesions, relatively stable from 1 year ago. For now given her stable symptoms and pronounced cytopenias, we will continue her current dosing daratumumab/Pomalyst/dexamethasone. Next follow-up with me in 2 months. She will return sooner for issues arise. Moderate complexity visit over 35 minutes. 04/09/2022: Mojgan continues every 2-week durvalumab with Pomalyst now 2 mg daily (dose reduced due to diffuse rash). She is now day 14 of the cycle and isnoted to have platelet count of 40,000 (no associated mucosal bleeding, bright red blood per rectum, or hematuria). No recurrent rash on this dose. She continues her weekly prednisone. I recommended changing her schedule of Pomalyst to 2 mg daily for days 1 through 14, off days 15 through 28 cycle and continuing daratumumab. Her most recent immunoglobulins have shown a steady trend upward for lambda light chain and decrease of kappa/lambda light chain ratio, however since she is now stabilizing her dosing of daratumumab/Pomalyst/dexamethasone I recommend continuing her current dosing for1 more cycle with repeat kappa/lambda light chain ratio in another month. In addition I will set her up for F-18 Axumin PET/CT to compare to PET/CT from 1 year ago (her skeletal survey showed no lesions 6 months ago). She denies any current bone pain.She will proceed with daratumumab dose as previously orderedtoday. 03/19/2022: Mojgan is here for follow-up after adverse cutaneous reaction to her first cycle of Pomalyst. She noted that after starting her first dose of Pomalyst 3 mg daily on 03/05/2022 that about 1 week later on 03/13/2022 she had a diffuse rash all over that was pruritic with increased erythema. She did not have nausea, vomiting, constipation, diarrhea, dyspnea, or any other adverse reactions. She did have a decline of platelet count to 41,000 this week which may be due to her Pomalyst. She called the pharmacy and was instructed to discontinue Pomalyst on 03/13/2022. Her rash has mostly resolved with no furtherpruritus but she still has a few macular lesions over the legs. She has been using Benadryl and topical cortisone cream with improvement of the rash. Otherwise her laboratories are stable. She does have an increased kappa/lambda light chain ratio from 03/05/2022 but this was her first day of therapy. I recommended resuming Pomalyst at next dose level 2 mg daily as soon as new medic ation arrives for 3 weeks on 1 week off. If she has recurrent rash she will again stop and we will consider further dose adjustment. Due to her thrombocytopenia we will hold her daratumumab today andconsume with first day of Pomalyst next week. She may follow-up in about 3 to 4 weeks, possibly with virologist covering at that time. Patient expressed understanding. 02/19/2022: Mojgan is here for follow-up--no new symptoms but her platelet countdropped to 48,000 last week and we are again holding her Revlimid. She has not had any bleeding or infection recently, but she has had uptrending lambda light chains and we discussed changing her therapy from lenalidomide to pomalidomide and continuing her daratumumab which is currently every other week. Her only other concern is constipation which is likely related to her pain medications. ANC was 800 today. --Today we reviewed chemotherapy counseling for lenalidomide in combination withdaratumumab/dexamethasone (stopping Revlimid). Common toxicities were reviewed to include allergic reactions, myelosuppression, thrombosis, fatigue, nausea, vomiting, constipation, diarrhea, mouth sores, and risk of secondary malignancies. Other toxicities may include pneumonitis, neurologic, hepatic andrenal toxicities. The patient signed informed consent and will follow-up as directed. Planning a trip to [place] on March 06, therefore we will hold Revlimid until arrival of her pomalidomide, then have oral chemotherapy visit. We are starting pomalidomide at 3 mg daily days 1 through 21 every 28 days due to baseline liver dysfunction. Follow-up cycle 1 week 2. We will recheck her baseline myeloma labs on start day of pomalidomide with daratumumab. 01/22/2022: Mojgan has no new complaints. She was seen by Dr. Benavidez at for evaluation for transplant and CAR-T options but given her profound thrombocytopenia, neither of these options are felt tuyet optimal for her. She has had gradual worsening of her lambda light chains without any change of r enalfunction or hypercalcemia. Her chronic thrombocytopenia has remained in the 40-50,000 range which is lower than her prior baseline. I reviewed her options with Dr. Benavidez and it is difficult to assess best options due to her chronic thrombocytopenia but standard of care at this point would be tocontinue her daratumumab and transition from the lenalidomide to pomalidomide. We will follow closely with weekly CBCs to determine if thrombocytopenia worsens on thisregimen. I will defer changing her regimen for 1 month since she is starting a new cycle of lenalidomide and has had slow progression of her lambda light chains. She will return in 1 month and will discuss pomalidomide and signed inf ormed consent. Patient is in agreement with this plan. 12/18/2021: Mojgan is here for 3-month follow-up. She has not had any significant changes in medical history other than testing positive for coronavirus infection in early November 2021. She has not been immunized for coronavirus. She notes persistent fatigue but no bone pain. No other recent infections or bleeding episodes. She recently changed from weekly to now every 2 weeks daratumumab 16 mg/kg and remains on low-dose lenalidomide 5 mg daily for2 weeks on 1 week off due to prior thrombocytopenia worsening. October 2021 skeletal survey showed no osteolytic lesions suggestive of myeloma. Initially she had improvement of her platelets to 70-100,000 but today platelets are down to 54,000. She also had some improvement of leukopenia but this is again down to 2800 with ANC 1300 today. Urinerandom M spike is not observed, but she has had progressive increase of her lambda light chains from 30 in December 2020 to 60.2 in October 2021. [place] lambda ratio has also started to decline to 0.21 in October 2021. For now I'm continuing her daratumumab with Revlimid at current dosing, but I contacted Dr. Benavidez at [facility] for CAR-T celleligibility. If he has recommendations to change her therapy, I will let her know. Otherwise I will have her follow-up with me in 1 month (she will have repeat myeloma labs 1 week prior to visit). 09/20/2021: After telephone consultation with Dr. Benavidez at , we resumed repeat loading doses of weekly daratumumab 16mg/kg and changed to low dose lenalidomide 5mg daily. She has had 2 courses of antibiotics for sinus infection over the past month and was noted to have neutropenia with ANC 900, platelets 44,000 week 2 of Revlimid, therefore this was held for one week and resumed Thursday after ANC returned to 1000. Platelet counts have persisted at 40-50,000 range without active bleeding. Otherwise tolerating therapy well. Still improved hip pain and ambulation after recent course of palliative radiation therapy. For now we will continue Daratumumab with Revlimid and Dexamethasone as ordered with weekly CBC. Gradually increasing lambda light chains--pending evaluation at for CAR-T celltherapy eligibility (has not yetbeen contacted for appointment). 4 week f/u with me with CBC, CMP, and myeloma labs (follow quant immunoglobulins and [place]/Lambda light chain ratio with skeletal survey in 2 weeks so results available for appointment). 08/30/2021: Mojgan is here for 2-week follow-up for completion of her palliative radiation therapywith significant improvement of pain in her right hip and pelvis. We sent her for echocardiogram performed 08/23/2021 at [facility] [place] as baseline for possible Kyprolis therapy. This returned with ejection fraction 60% which is normal with grade 1 left ventricular diastolic dysfunction and 1+ tricuspid valve regurgitation and trace to 1+ aortic valve regurgitation.Otherwise unremarkable. I discussed her case with Dr. Benavidez of malignant hematology at [facility]. He advised against Kyprolis therapy given her underlying liver dysfunction and recommended repeating loading doses of daratumumab weekly as well as low-dose lenalidomide which we will start at 5 mg daily since she has chronic thrombocytopenia. We will send for CAR-T therapy as a possible therapeutic option. The patient agreed with changing daratumumab to weekly and we will have hersign consent next week for change to low-dose lenalidomide therapy. Next follow-up with me will be in about 2 weeks for week 2 lenalidomide with daratumumab. 08/16/2021: One month followup, she recently completed palliative radiation therapy to right hip and pelvis. Platelet count still in 50,000 range with increased bruising but no bleeding. Still has some pain in right hip but slowlyimproving after radiation therapy. Slowly worsening lambda light chain --she is scheduled for ECHO next week. We discussed possibly changing therapy from Daratumumab, Velcade, Dexamethasone to Kyprolis, low dose lenalidomide, dexamethasone if adequate cardiac function. I will discuss this with Dr. Benavidez for dosing and determine if CAR-T therapy is another possible option (although we may be limited due to chronic thrombocytopenia and liver disease). Followup 2-3 weeks to review results and possible consent for change in therapy. 07/17/2021: 2-month follow-up on multiple myeloma. She reports that Thursday she developed severe painin the right leg that started proximal to the knee creating it to the hip. She had increased pain with weightbearing on the right and has been using a walker at home secondary to this. She did not feel a pop or shift in ambulation, but has been using her Percocet for pain control at home. In reviewing her laboratories platelet count remains in the 52,000 range and she is otherwisPe tolerating daratumumab well. I recommended sending for right hip, femur, and knee plain film imaging that did not show any fracture. She does have a gradually rising lambda light chain but no other significant changes in her labs. I reviewed her case with Dr. Cheng of orthopedic surgery who also reviewed her prior PET/CT showing uptake in this area. We will obtain a right hip MRI, keep her completely nonweightbearing on the right leg with walker for transfers and she has an urgent orthopedic follow-up following her MRI. I will follow-up with her in 1 month to review management and we will determine if she requires prophylactic kenton for stability of the hip based on herMRI. 05/24/2021: Here to followup 05/03/2021 bone marrow biopsy--noted to have decreased cellularity 25%, flow cytometry with 0.2% plasma cells and a 1.5% monoclonal B- cell population. FISH showed 13q and 1qabnormalities but normal cytogenetics. No myelodysplasia seen. I reassured her that recent thrombocytopenia is more likely related to splenic sequestration from liver disease and not worsening myeloma. For now continue current regimen. Will alsorecheck B12, folate, and iron profile with next labs--followup in 2 months with myeloma labs, sooner prn. 04/24/2021: 1 month followup to review PET/CT. Over the past 2 days, she notes episodes of sharp left sided neck pain over sternocleidomastoid muscle and mastoid area. No radiculopathy down left upperextremity. No new side effects of Daratumumab. F18 PET/CT shows largely unchanged diffuse uptake through multiple bony sites in axial and articular skeleton. Lambda light chains risingover past 2 month and decline of platelet count to 57,000 without bleeding. MRIof thoracic spine did not show significant thoracic canal stenosis. Due to worsening neck pain with extensive uptake on F18 PET/CT--we will send for cervical MRI. Palliative medicine has increased Percocet to tid. We will repeat bone marrow biopsy due to rising lambda light chain and falling platelet count to determine if progression of myeloma noted. This will be scheduled in the next 1-2 weeks. 03/28/2021: 2 month followup for multiple myeloma. More recently notes neck andleft shoulder pain. Fatigue and constipation stable. Labs show stable anemia and thrombocytopenia. Serum M-spike now asymmetric gamma (no quantifiable spike). Slowly improving IgG to near normal. [place]/lambda light chain ratio normal with mildly increased lambda light chains. MRI of thoracic spine for evaluation of increasing left shoulder pain. For now we will continue current dosing of Daratumumab and recheck F18 PET/CT for response in late April 2021. 01/21/2021: Mojgan is accompanied by her daughter for 2 month followup--now Daratumumab maintenance. She notes persistent fatigue and recently added as needed laxatives to stool softener for management of constipation. Persistent left hand pain--correlates to an area of bone uptake on PET/CT. Overall F18 PET/CT appears stable with no new areas if FDG avidity (still extensive bone FDGuptake). We reviewed prior plain xrays of left hand from November--she agrees toevaluation by orthopedic surgery (determine if biopsy or steroid injections). M-spike and kappa/lambda light chains pending. CBC (platelets 60-70,000); CMP stable. Will followup in 2 months with exam and labs. 11/26/2020: Mojgan is accompanied by her daughter for 2 month followup--now Daratumumab maintenance. Stable leukopenia/low platelet 70,000. Notes 3 days of hematuria and mild dysuria. Sending UA and possible culture. Otherwise no new bone pain. Blood sugars stable. M-spike and kappa/lambda light chain ratiostable. Next f/u 2 months after one year f/u PET/CT to determine response to therapy. 09/24/2020: Mojgan presents (accompanied by her daughter) for cycle 8, week 2 followup [id number] mg/kg IV weekly, Dexamethasone 20mg weekly, and Velcade 0.7 mg/m? now sq once weekly for every 3-week cycle (21 days). She notes neuropathy symptoms are stable. Tolerating therapy well without fatigue. No bleeding and thrombocytopenia stable in 60-70,0000 range. On 10/02 she will be due for maintenance therapy with Daratumumab alone once per month. I will f/u with her in 2 months with myeloma labs, sooner as needed. Velcade and Dexamethasone will be stopped after 8 cycles. 08/13/2020: Mojgan is here for cycle 6, week 2 (day 14) daratumumab 16 mg/kg weekly, Velcade 0.7 mg/m? now sq once weekly for every 3-week cycle (21 days), and dexamethasone 20 mg weekly. No new symptoms--improving thrombocytopenia to 79,000 and improved leukopenia. 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 Still has improvement of M-spike, IgA normal and decreased lambda light chain and K/L ratio. We discussed that week 25 in Oct she will change to monthly daratumumab with weekly Velcade (1mg/m2) and Dexamethasone. Continue to follow every 6-8 weeks until maintenance schedule. 06/18/2020: Mojgan is here for cycle 3 week 3 (day 21) daratumumab 16 mg/kg weekly, Velcade 0.7 mg/m? now sq once weekly for every 5-week cycle (35 days), and dexamethasone 20 mg weekly. Tolerating well with stable leukopenia and thrombocytopenia. Mild increased symptoms of hand and foot neuropathy, but no limitation in activity. Now following with diabetes management clinic with variable glucosecontrol. We reviewed lower IgA (now M-spike IgG kappa after Daratumumab--previously IgA lambda). Lambda light chain has decreased from 516 to 41.3 to now 18.5 with normalization of K/L ratio. Continue followup myeloma labs in 6 weeks, visit in 8 weeks. 05/21/2020: Mojgan is here for cycle 2 (week 7 overall) daratumumab 16 mg/kg weekly, Velcade 0.7 mg/m? now sq once weekly for every 5-week cycle (35 days), and dexamethasone 20 mg weekly. Tolerating well with stable leukopenia and thrombocytopenia. No significant neuropathy. Noted to have improvement in lambda light chains. No further daratumumab infusion reactions. No infections, stable constipation, pain control improved. No other complaints. Continue monthly f/u with myeloma labs. --Diabetes management--added insulin on dexamethasone days. Hyperglycemia improving. 01/18/2020 (phone followup)--The patient's son was available by phone and her daughter was contactedin a separate phone call as patient presented unaccompanied due to COVID-19 precautions in our clinic during the current epidemic. Bone marrow biopsy results were reviewed as follows from procedure pe rformed 01/26/2020: --Bone marrow biopsy was suboptimal for evaluation. --Increased lambda light chain restricted monoclonal plasma cells (1.9% by flow cytometry, approximately 6% and aspirate count, but 50% by immunohistochemical stains [id number]). Sideroblastic iron present, negative for ring sideroblasts. Peripheral blood smear with mild red blood cell anisocytosis and polychromasia, leukopenia with absolute neutropenia (1000) and thrombocytopenia (54,000) consistent with prior baseline. Note: I discussed the results with Dr. Crook 01/26/2020. Preliminary findings were also discussed with Dr. Cummings 01/27/2020. Morphologic findings, immunohistochemical stains, flow cytometry, and ancillary studies may under represent the extent and severity of disease. The results of FISH myeloma panelwith prognostic markers and cytogenetic analysis are pending. --Given the patient's hip pain and presence of lytic lesions, she meets clinicalcriteria for activemyeloma. Given her hip pain and lytic lesions in weightbearing areas she was offered radiation therapy. She had a limited courseof hypofractionated palliative therapy to bilateral proximal femurs [address] Ahn. We discussed that given the COVID-19 epidemic and absence of othersignificant changes other than bony lesions (normal renal function, normal calcium, stable cytopenias), I would defer active therapy for myeloma for 4 to 6 weeks. Since she has significant history ofliver disease I will discuss her case with Dr. Piter Benavidez at [facility] malignant hematology for optimal regimen. The patient is not a transplant candidate given her nonalcoholic steatohepatitis and chronic thrombocytopenia but may be a candidate for either doublet therapy (Revlimid/dexamethasone) or triplet therapy with either Velcade/Revlimid/dexamethasone or daratumumab/Revlimid/dexamethasone. --02/03/2020: Mojgan presented unaccompanied for follow-up of bone marrow aspiration and biopsy performed by Dr. 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 The patient had been noting increased left hip pain over the past several months andplain films of the pelvis and bilateral femurs did show subtle lucencies in the bilateral proximal femurs corresponding to PET/CT findings but no other additional sclerotic lesions identified. No pathologic fractures were seen. --03/05/2020: Mojgan notes improvement of bilateral hip pain since radiation. No other changes in medical history in the past month--no infections, normal renal function, no hypercalcemia. Stable platelet counts without bleeding. Shewas given written literature regarding Dexamethasone, Velcade (thatwould be dose reduced to 0.7mg/m2 twice weekly), weekly Daratumumab and Revlimid, but I will defer decision of which regimen to use until discussion in malignant hematology tumor board. Also referring for infusion port placement prior to initiating therapy. Sign informed consent prior to initiating therapy. --Discussed with Dr. Benavidez who favors Daratumumab combination--will request prior liver biopsy and records from [facility] liver clinic. The patient and her son (by telephone) expressed understanding and will follow- up as directed in 2 weeks for consent and likely start of therapy. --04/02/2020: Mojgan presents after infusion port placement at [facility] by interventional radiology due to platelet count 40,000--she had increased bruising at site post procedure, but this has completely resolved. Her hip painis well controlled since completion of palliative radiation and no newareas of pain. She has previously reviewed information regarding Daratumumab (first dosesplit 8mg/kg IV D1,D2, then if well tolerated 16mg/kg IV weekly), Velcade at about 50% dose (for liver dysfunction) 0.7mg/m2 D1,D4,D8, D11, and [id number] IV weekly--repeat for every 3 week cycles 1st 3 cycles. She will take chemo class and likely start therapy within 2 weeks with toxicity visit in 3 weeks. Today we reviewed chemotherapy counseling for Daratumumab, Velcade, and Dexamethasone. Common toxicities were reviewed to include infusion reaction including rash/dyspnea/wheezing, myelosuppression, fatigue, nausea, vomiting, constipation, diarrhea, mouth sores, and alopecia. Other toxicities may in cludepneumonitis, neurologic, thromboembolism, hyperglycemia, hepatic and renal toxicities. The patient signed informed consent and will follow-up as directed. --04/19/2020: Mojgan is here for cycle 1 week 2 daratumumab 16 mg/kg weekly, Velcade 0.7 mg/m? twice weekly for first 2 weeks of every 3-week cycle, and dexamethasone 20 mg weekly. She did have an infusion reaction with first daratumumab with dyspnea and flushing but this improved after first dose and shehas not had recurrent infusion reactions. We have continued Velcade despite platelet counts in the 40,000 range without bleeding as we know that her baseline platelet counts remain in this range and she has not had any significant change from her baseline. Dexamethasone has caused hyperglycemia with blood sugars up to 400 and we are referring to diabetes management clinic. Otherwise she denies any significant nausea, emesis, fever, chills, night sweats, constipation, diarrhea, rash, mouthsores, or alopecia. She has not hadany change of baseline neuropathy. Liver function tests remain stable. She notes that her hip pain is well controlled since prior palliative radiation and she saw radiation oncology earlier this week with no new recommendations. I will send her myeloma labs including serum and urine protein electrophoresis, quantitative immunoglobulins, and serum kappa/lambda light chains in 2 weeks andfollow-up with her in 3 weeks. She may be seen sooner if new issues arise. This is a 67-year-old lady on chronic disability has a history of arthritis, diabetes mellitus, hypertension, COPD, GERD, and fibromyalgia who [facility] for chronic mild to moderate thrombocytopenia. She states that she was followed with Dr. Kumari prior to his senior care and was told that she had an elevated protein level as well as thrombocytopenia but never had clinical bleeding. She is 4 para4 without complicationsand was never told that she was thrombocytopenic while . She is had multiple prior surgicalprocedures without any clinical bleeding. She had been recommended for a pain procedure with Dr. Wilson but he declined to do the procedure because her platelet count was less than 100,000. For this reason she received 2 platelet transfusions, with little improvement of her platelet count and her second transfusion resulted in throat tightening due to allergy to platelets . She has never beentreated with steroids and has never been told that she has immune thrombocytopenia. She has mild leukopenia with relative neutropenia, absolute neutrophil count of 400-800 and mild lymphocytosis. Hemoglobin is normal. She has not hadany bright red blood per rectum or epistaxis. She has no history of bleeding within the family however does have a mother and sister diagnosed with colon cancer, a brother diagnosed with lung cancer, and another sister diagnosed with breast cancer. She had prior pain in the right hand mainly at the first MCP joint with some associated swelling and right foot pain and was evaluated by podiatry. She was told that her blood tests were negative forgout. She had screening with MALLORY, CCP, and rheumatoid factor all of which were negative. She says that she previously saw Dr. Petersen for cirrhosis but did not know of any specific therapy. We reviewed these findings from her liver ultrasound ordered by Dr. Benavidez Summer 2016. Initial consultation with me March 16, 2017. --The patient has been followed by me for some time for diagnosis of smoldering myeloma with a prior bone marrow biopsy May 2017 showing 15% plasma cells but the patient remained asymptomatic without bone pain or other CRAB criteria for therapy. She is also noted to have an ascending aortic aneurysm and has chronicliver disease with cirrhosis secondary to nonalcoholic steatohepatitis. She haschronic thrombocytopenia without bleeding ranging from 50-100,000 this is felt to be due to sequestration from her nonalcoholic steatohepatitis. She was previously on a liver transplant list but was recently notified that she is no longer a candidate for liver transplant. She has had chronic pain from f ibromyalgia but noted increasing bilateral hip and upper thigh pain over the last 6 months. She also is followed for EGD/colonoscopy with last documented procedure 09/21/2018: 1. Normal EGD, 2. Mild sigmoid diverticulosis, 3. Internal hemorrhoids, grade 2, 4. Anal fissure with active bleeding cauterized by bipolar cautery Bone osseous survey in June 2019 showed osteopenia and degenerative changes but no lytic or blastic lesion. Patient had an F-18 PET scan 01/02/2020 which showed multiple areas of involvementof bones with increased SUV activity. She was contacted with these results by phone and I recommended bone marrow aspirate and biopsy for assessment and analysis. Her prior labs were reviewed. Her SPEP does not show anymonoclonal gammopathy. On VAHID there appears to be a trace of monoclonal gammopathy. Free light chain ratio is less than 100. There is no evidence of renal sufficiency. Patient is not anemic. She doeshave some abnormal areas on bone scan. - Summary of Therapies Summary of Therapies: 1. 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 2. She underwent a single dose of palliative radiation therapy to bilateral hips, receiving 800 cGyto right and left hip in 1 fraction in separate vaz (with a single isocenter). The treatments were given with AP/PA vaz [id number] MV photons and MLC blocks. 3. Deferred active therapy for myeloma 2 months given COVID-19 epidemic with increased risk of myelosuppression and viral transmission of contacts. --Follow-up 03/05/2020 I discussed her case with Dr. Piter Benavidez at malignant hematology. --Given her significant hepatic dysfunction, I presented her case at malignant hematology tumor board to discuss optimal therapy. 4. Cycle 1 day 1 04/10/2020: Dose reduced Velcade 0.7 mg/m? twice weekly (day 1,day 4, day 8, day 11)every 3 weeks with dexamethasone 20 mg weekly and daratumumab 16 mg/kg weekly of each 21-day cycle.After first week, Velcade decreased to 0.7mg sq weekly due to thrombocytopenia. --We will need to watch liver function, platelet count, and neuropathy closely on Velcade. 5. Cycle 9 day 1 10/02/2020: Daratumumab 16mg/kg once monthly maintenance therapy until progression. 6. 07/31/2021: Palliative radiation therapy to right supra chondral/soft tissuearea of hip which is PET positive. She received a dose of 3000 cGy in 10 fractions from 07/31/2021 to 08/15/2021 over 15 elapsed days 7. 08/30/2021: Right hip pain improved after radiation. Due to disease progression with persistent cytopenias, changed to repeat loading doses of daratumumab 16 mg/kg weekly for cycles 1 through 3 with Revlimid 5 mg daily for 3 weeks on 1 week off. Held Revlimid second week due to neutropenia with sinus infection, resumed 3 days ago (09/17/2021). Referred for CAR-T therapy evaluation. 8. 12/18/2021: Daratumumab is now 16 mg/kg every 2 weeks with Revlimid 5 mg daily for 2 weeks on 2 weeks off due to neutropenia and thrombocytopenia. Stillpending evaluation for CAR-T therapy. 9. 01/22/2022: Patient is not deemed a candidate for stem cell transplant or CAR- T therapy at this time. Discussed changing from current Revlimid to pomalidomide with continued daratumumab 16 mg/kg every 2 weeks. Plan change in therapy in 1 month. 10. 02/19/2022: Continue daratumumab 16 mg/kg IV every 2 weeks and changed to pomalidomide now 3 mg daily days 1 through 21 of each 28-day cycle (lower dose due to baseline liver dysfunction) -- 03/19/2022: Patient was noted to tolerate Pomalyst only 1 week (03/05- 03/13/2022)due to grade 3 rash. This resolved after stopping medication 1 week later. 1 dose level reduction Pomalyst to 2 mg daily days 1 through 21 of each 28-day cycle. Also holding daratumumab daily for platelet count of 41,000 and will resume at full dose with first dose of Pomalyst. -- 04/09/2022: Platelet 40,000 without bleeding. Will continue monthly Daratumumab with change of Pomalyst to 2mg D1-14 each 28 day cycle (off 2 weeks due to low platelets). Rising lambda light chains,unable to tolerate Pomalyst due to cytopenias, stopped mid 07/2022. 11. 07/18/2022: carfilzomib (dose 20mg/m2 day one then 27mg/m2 D8, D15) with cyclophosphamide 300mg IV weekly and weekly dexamethasone. Baseline echocardiogram EF 60-65%. We will follow closely for her chronic cytopenias andliver dysfunction. -- 10/29/2022: Regimen on hold for past 2 weeks due to cytopenias. Today with ANC 400, holding another week and will reduce dose of carfilzomib to 20mg/m2 IV weekly with cyclophosphamide 300-->240mg/m2 IV weekly, continue weekly dexamethasone. -- 11/26/2022: ANC 700, Platelets 40,000. Continue carfilzomib 20mg/m2 IV weekly with cyclophosphamide 300-->240-->180mg/m2 IV weekly, continue weekly dexamethasone. -- Carfilzomib/cyclophosphamide on hold since 12/04/2022 due to cytopenias, pending evaluation by for bispecific antibody therapy. ROS Details: All systems reviewed & no additional complaints except as documented Subjective/ROS - Narrative: Constitutional: No Chills, No Diaphoresis, Stable Fatigue, No Fever, No Malaise, No Night Sweats, No Weakness, No Weight Gain, No Weight Loss Gastrointestinal: No Abdominal Pain, No Black Stool, No Bloating, No Bloody Stool, positive for constipation, No Diarrhea, No Dysphagia, No Hematemesis, No Nausea, No Postprandial Pain, No Rectal Bleeding, No Rectal Pain, No Vomiting, Other (chronic gastroesophageal reflux stable) --No jaundice or ascites but patient has longstanding nonalcoholic steatohepatitis with cirrhosis, previously followed by [facility]. Cardiovascular: No Chest Pain, No Edema, No Palpitations, No Syncope Genitourinary: No Discharge, No Dysuria, No Flank Pain, Frequency (chronic andunchanged), Resolved Hematuria, No Incontinence, No Nocturia, No Urgency, No Urinary Retention Musculoskeletal: + left shoulder and neck pain as per HPI (no thoracic cord compression). Improvement of prior bilateral hip/thigh pain since radiation; positive for intermittent lumbar back pain, NoChest Wall Tenderness, Improvement of prior Joint Pain, Muscle Stiffness, Myalgia (history of fibromyalgia), --unremarkable skeletal survey June 2019. 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 12/2020: F-18 PET/CT stable. 04/2021 F-18 PET/CT stable. Right hip pain mildly improved after palliative radiation. 04/30/2022 repeat Axumin F-18 PET/CT stablefrom 1 year ago. HEENT: + frontal headache and sinus tenderness/congestion--persistent since late Nov 2022. No Blurred Vision, No Discharge, No Ear Pain, No Epistaxis, No Sore Throat --patient was seen in emergency department November 2019 with persistent epistaxis. She was treated with nasal clip and packing and was advised to continue Afrin. No recurrent bleeding. 2 courses of antibiotics in Aug-Sep 2021 for recurrent sinusitis. 11/30/2022: Polyp only on CT (no air-fluid level). 12/26/22: Augmentin 2 week course and hold chemo. Respiratory: No Cough, No Hemoptysis, mild Shortness of Breath (chronic and unchanged due to COPD),No Sputum, No Wheezing--shortness of breath with daratumumab reaction dose 1 04/10/2020 (given a split dose over 2 days). No recurrent reaction since first dose. Neurological: No Dizziness, Stable Numbness/Tingling (reports long-standing bilateral foot numbness--unchanged since starting low-dose Velcade 04/10/2020), NoPre-existing Deficit (no history of stroke or seizure), intermittent headache Hematologic/Lymphatic: No significant bleeding thrombocytopenia from sequestration/myeloma disease,Bruises Easily, No Enlarged Lymph Nodes, Other (reports allergy to prior platelet transfusion) Endocrine: Excessive Sweating (hot flashes, postmenopausal) Flushing, No Intolerance to Cold, Intolerance to Heat Psychiatric: No Depressed Mood, No Insomnia Integumentary: No Jaundice, No Lesions, positive for diffuse rash on Pomalyst 3mg daily as per HPI.1 level dose reduction to 2 mg daily with only mild rash/pruritus. Due to cytopenias Pomalyst is reduced to 2 mg twice weekly on Mondays and . Stopped Pomalyst in Jul 2022--no recurrent rash. Allergic/Immunology: Previous pruritus with Pomalyst rash resolved off Pomalyst. PMFSH - History Attestation statement: The following information was validated with the patient. Source: Old Records Reviewed - Medical History Medical History: Medical History (Last Reviewed 12/27/22 @ 08:03 by Fabiola Marinelli MD) Aortic aneurysm COPD (chronic obstructive pulmonary disease) Diabetes Fibromyalgia GERD (gastroesophageal reflux disease) Hypertension Iron deficiency Multiple myeloma Neutropenia Smoldering multiple myeloma (SMM) Smoldering myeloma Temporary low platelet count - Surgical History Surgical History: Surgical History (Last Reviewed 12/27/22 @ 08:04 by Fabiola Marinelli MD) H/O: hysterectomy History of appendectomy History of cholecystectomy - Social History Smoking Status: Former smoker Tobacco Type: cigarettes Substance Use Type: None Social History Comments: Lives with son a juli Home Medications & Allergies Allergies erythromycin base [From E-Mycin] Allergy (Verified 12/26/22 09:36) Hives latex Allergy (Verified 12/26/22 09:36) Unknown Reaction moxifloxacin [From Avelox] Allergy (Verified 12/26/22 09:36) Hives Quinolones Allergy (Verified 12/26/22 09:36) Unknown Reaction tetracycline Allergy (Verified 12/26/22 09:36) Unknown Reaction Home Medications carvedilol 12.5 mg tablet 12.5 mg PO BID 11/20/17 [History Confirmed 12/26/22] duloxetine 60 mg capsule,delayed release 60 mg PO DAILY 11/20/17 [History Confirmed 12/26/22] insulin detemir U-100 100 unit/mL (3 mL) subcutaneous pen 26 units subcut QHS 11/20/17 [History Confirmed 12/26/22] oxycodone 10 mg tablet 10 mg PO TID PRN Pain 11/20/17 [History Confirmed 12/26/22] albuterol sulfate 90 mcg/actuation aerosol inhaler 2 puff inhalation Q6H PRN Shortness Of Breath 11/24/17 [History Confirmed 12/26/22] fluticasone 250 mcg-salmeterol 50 mcg/dose blistr powdr for inhalation (Advair Diskus) 1 inh inhalation Q12H PRN Shortness Of Breath 11/24/17 [History Confirmed 12/26/22] omeprazole magnesium 20 mg tablet,delayed release (Prilosec OTC) 40 mg PO DAILY 11/24/17 [History Confirmed 12/26/22] cholecalciferol (vitamin D3) 25 mcg (1,000 unit) capsule (Vitamin D3) 1,000 unitPO DAILY 04/13/19 [History Confirmed 12/26/22] metformin 500 mg tablet,extended release 24 hr 500 mg PO BID 03/05/20 [History Confirmed 12/26/22] ondansetron HCl 8 mg tablet (Zofran) 8 mg PO TID PRN Nausea #30 tabs 04/02/20 [Rx Confirmed 12/26/22] insulin NPH isoph U-100 human 100 unit/mL subcutaneous suspension (Novolin N NPHU-100 Insulin isophane) 20 unit subcut DIRECTED 05/21/20 [History Confirmed 12/26/22] semaglutide 0.25 mg or 0.5 mg (2 mg/1.5 mL) subcutaneous pen injector (Ozempic) 0.5 mg subcut QWEEK09/24/20 [History Confirmed 12/26/22] cyanocobalamin (vitamin B-12) 5,000 mcg capsule 5,000 mcg PO QWEEK 10/29/20 [History Confirmed 12/26/22] vitamin B12 0.5 mg-folic acid 1 mg tablet 1 tab PO DAILY 03/28/21 [History Confirmed 12/26/22] diazepam 5 mg tablet (Valium) 5 mg PO DIRECTED 1 day #2 tabs 07/17/21 [Rx Confirmed 12/26/22] gabapentin 300 mg tablet 600 mg PO TID 07/26/21 [History Confirmed 12/26/22] dexamethasone 4 mg tablet 20 mg PO ONCE 90 days #60 tabs 03/26/22 [Rx Confirmed 12/26/22] lactulose 20 gram/30 mL oral solution 20 g (30 mL) PO BID PRN Constipation #600 mL 04/09/22 [Rx Confirmed 12/26/22] ondansetron 8 mg disintegrating tablet 8 mg PO Q8H PRN Nausea #30 tabs 06/04/22 [Rx Confirmed 12/26/22] dexamethasone 4 mg tablet 40 mg PO ONCE #40 tabs 07/14/22 [Rx Confirmed 12/26/22] dexamethasone 4 mg tablet 40 mg PO ONCE #40 tabs 08/15/22 [Rx Confirmed 12/26/22] acyclovir 400 mg tablet 400 mg PO BID 90 days #180 tabs 09/24/22 [Rx Confirmed 12/26/22] potassium chloride 10 mEq capsule,extended release 10 meq PO DAILY #30 caps 11/18/22 [Rx Confirmed 12/26/22] amoxicillin 875 mg-potassium clavulanate 125 mg tablet 1 tab PO BID 14 days #28 tabs 12/26/22 [Rx] fluconazole 100 mg tablet (Diflucan) 100 mg PO DAILY #14 tabs 12/26/22 [Rx] loratadine 10 mg tablet (Claritin) 10 mg PO DAILY 12/26/22 [History Confirmed 12/26/22] Objective - Height/Weight Height/Weight: Height 5 ft 2.99 in Weight 85.1 kg BSA for Today's Weight 1.93 - Vital Signs Vital Signs: 12/26/22 09:37 Temperature 97.8 F Pulse Rate [Left Brachial] 89 Respiratory Rate 16 Blood Pressure [Right Arm] 141/81 H 02 Sat by Pulse Oximetry 100 Oxygen Delivery Method Room Air - Pain Generalized Pain Intensity: 3 Bilateral Hip Pain Intensity: 5 Left Hip Pain Intensity: 4 Lower Back Pain Intensity: 7 Left Neck Pain Intensity: 4 Back Pain Intensity: 0 Right Thigh Pain Intensity: 3 Bilateral Leg Pain Intensity: 5 Generalized Head Pain Intensity: 4 Bilateral Shoulder Pain Intensity: 6 Left index finger Pain Intensity: 4 - Distress Screening Distress Screen Results: RN Distress Screening Start: 02/07/20 10:17 Freq: Status: Complete Protocol: Document 05/01/20 09:33 DB (Rec: 05/01/20 09:33 DB [facility]-[id number]) Distress Screening Distress Score: 0 No worry/distress Distress Screening Total 0 RN Distress Screening Start: 07/26/21 12:37 Freq: Status: Active Protocol: Document 07/26/21 13:20 DB (Rec: 07/26/21 13:20 DB -[id number]) Distress Screening Distress Score: 2 Physical Concerns Pain Distress Screening Total 2 Physical Exam Narrative: Patient is alert and oriented x3. HEAD / FACE: Normocephalic. No tenderness to palpation over scalp, no sinus tenderness to palpation. EYES: Pupils are equal and reactive to light. Conjunctivae and lids are benign in appearance. Ocular movement intact. EARS: Hearing grossly intact. NOSE / MOUTH / THROAT: + frontal/maxillary sinus tenderness--no improvement after amoxicillin. No oral thrush or aphthous ulcerations. NECK / THYROID: No cervical adenopathy on exam. Thyroid is symmetrical, withoutthyromegaly, masses or palpable nodules. RESPIRATORY: Normal inspection. Lungs clear to auscultation and percussion. No wheezing, rales, rhonchi or rubs. Normal effort. CARDIOVASCULAR: Regular rate and rhythm. No murmurs, gallops, or rubs. ABDOMEN: Bowel sounds normoactive. Soft, nontender and non-distended. No hepatosplenomegaly. No masses. INTEGUMENTARY: The skin is unremarkable. No suspicious lesions or rash. No bruising or petechiae noted. MUSCULOSKELETAL: Normal musculature, normal ROM upper and lower extremities, no crepitus. EXTREMITIES: Trace bilateral leg edema. No cyanosis or clubbing. NEUROLOGICAL: Alert and oriented. Cranial nerves intact. No gross motor or sensory deficits, patient ambulates unassisted. PSYCHIATRIC: No anxiety or evidence of depression. - ECOG Performance Status ECOG Score: 2 - fatigue and persistent sinusitis Results - Labs Labs: Diagram of Most Recent CBC and CMP 12/25/22 10:44 12/25/22 10:44 Labs - Last 7 Days 12/25/22 10:44: PHA Creatinine Clear 70.50, Sodium 138, Potassium 3.6, Chloride 106, Carbon Shvhkkf22.9, Anion Gap 8.7, BUN 8 L, Creatinine 0.42 L, Est GFR ( Amer) > 60, Est GFR (Non-Af Amer) > 60, Glucose 108 H, Calcium 8.4, Total Bilirubin 1.1, AST 29, ALT 28, Alkaline Phosphatase 96 H, Total Protein 5.0 L, Albumin 3.1 L, Globulin 1.9, Albumin/Globulin Ratio 1.6 12/25/22 10:44: Corrected WBC 1.7 L, Uncorrected WBC Count 1.7 L, RBC 3.17 L, Hgb 11.0 L, Hct 32.5 L, MCV 102.5 H, MCH 34.6 H, MCHC 33.7, RDW 16.4 H, Plt Count 37 L*, MPV 8.4, Neut % (Auto) 51.7, Lymph % (Auto) 28.3, Hodgeman % (Auto) 15.7, Eos % (Auto) 4.0, Baso % (Auto) 0.3, Nucleat RBC Rel Count 0.1, Neut # (Auto) 0.9 L, Lymph # (Auto) 0.5 L, Hodgeman # (Auto) 0.3, Eos # (Auto) 0.1, Baso # (Auto) 0.0,Platelet Estimate Decreased, Plt Morphology Comment Normal, RBC Morphology N/A, Polychromasia Slight, Poikilocytosis Slight, Anisocytosis Slight, Microcytosis Slight, Ovalocytes Slight 12/18/22 14:15: Free [place] LC, Quant 5.8, Free Lambda LC, Quant 41.7 H, Free [place]/Lambda Ratio 0.14 L - Impressions CT sinus wo con 12/01/2022 10:52 AM SIGN AND SYMPTOMS: Headaches, facial pressure and puffiness TECHNIQUE: Multidetector CT axial slices of the sinuses were obtained without IVcontrast. Coronal reformats were generated and reviewed to further define anatomy and possible pathology. CT was performed with one or more of the following dose reduction techniques: Automated exposure control, adjustment of the mA and/or kV according to patient size, or use of iterative reconstruction technique. COMPARISON: None. Turbinates: There is adriana bullosa of the right middle nasal turbinate with a peritonsillar targetalong the anterior left middle nasal turbinate. Septum: [...] the right middle nasal turbinate with a peritonsillartarget along the anterior left middle nasal turbinate. There is 5 mm of rightward shift of the nasal septum. 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 The left ventricular size, thickness and function are normal The left ventricular wall motion is normal. A variety of Doppler measurements indicate impaired left ventricular relaxation, which is associated with grade I/IV or mild diastolic dysfunction. Trace aortic regurgitation. There is trace tricuspid regurgitation. The aortic root is 4.2 cm Compared to prior study, there is no significant change. Procedure/Quality: A two-dimensional transthoracic echocardiogram with color flow and Doppler was performed. Left Ventricle: The left ventricular size, thickness and function are normal. Ejection Fraction = 55-60%. A variety of Doppler measurements indicate impaired left ventricular relaxation, which is associated with grade I/IV or mild diastolic dysfunction. The left ventricular wall motion is normal. Left Atrium: The left atrium appears normal in size. Right Atrium: The right atrium appears normal in size. Right Ventricle: The right ventricular size, thickness and function are normal. Aortic Valve: The aortic valve is normal in structure and function. Trace aortic regurgitation. Mitral Valve: The mitral valve is normal in structure and function. There is no mitral regurgitation noted. Tricuspid Valve: The tricuspid valve is normal in structure and function. There is trace tricuspid regurgitation. Right ventricular systolic pressure is normal. Pulmonic Valve: The pulmonic valve is normal in structure and function. Trace pulmonic valvular regurgitation. Arteries: Mild aortic root dilatation. The aortic root is 4.2 cm. Pericardium/Pleura: No pericardial effusion seen. There is no pleural effusion. IVC/Hepatic Viens: The inferior vena cava is normal in size, with a normal collapsibility index. 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 She has high risk cytogenetics and I [facility]. Her persistent thrombocytopenia made her ineligible for any clinical trials, and preventedher from receiving local pain procedures given her chronic low back pain. --05/2017 PET/CT images and reports performed for staging to exclude bone involvement with myeloma. 2 indeterminate areas of uptake thought to be degenerative arthritis vs early bone findings of myeloma (right parietooccipitalarea and upper sternum). She has remained asymptomatic [...] showed no lytic lesions and she has stableshoulder, hand, and right SI joint pain (although likely due to fibromyalgia. --Prior osseous survey 07/01/2019 showed osteopenia but no compression fractures or lytic lesions were identified. She had no significant change in myeloma labs(mild increase of urine M-spike, kappa/lambda ratio, and normal serum M- spike and quant immunoglobulins). Urine protein still undetectable, therefore will continue surveillance every 6 months with the same labs--no hypercalcemia, renaldysfunction (or proteinuria), anemia, or new bone symptoms. [...] proteins with urine M spike 43.1 but totalprotein 34.4, with no reported urine creatinine. --We deferred immunosuppressive chemotherapy for about 1 month due to control ofsymptoms after palliative radiation and concern of potential peak of COVID-19 inlate January early March. --She presented for follow-up 03/05/2020 and we discussed potential therapy options (with son available by phone). --I discussed her case with Dr. Piter Benavidez of malignant hematology, possibly presenting the patient in hematology tumor board at [facility]. --Infusion port placed 03/22/2020 at [facility] due to low platelets. No complications. --03/12/2020: Myeloma labs with no serum M-spike, + urine M spike 22.2mg/24h (14%). Immunofixation IgA lambda specificity. IgA normal 227, Serum kappa 20.6, serum lambda 516.7, Free kappa/lambda ratio0.04. Normal renal function and calcium. Lower ANC 600 and platelets 40,000 --04/10/2020: Started cycle 1 day 1 of weekly dexamethasone 20 mg IV (careful to watch blood sugars with diabetes and known hepatic dysfunction), decreased dose of bortezomib 0.7 mg/m? twice weekly for2 weeks on 1 week off (due to known liver disease and thrombocytopenia), and daratumumab 8mg/kg D1,D2 IV first week,then 16 mg/kg IV weekly and we may consider Revlimid as a 4th medication if needed (deferred for worsening neutropenia and thrombocytopenia--I am reluctant to add this therapy initially). --------- --01/21/2021: One year f/u F18 PET/CT with stable FDG avidity, monoclonal labs (SPEP, Quant Igs, kappa/lambda ratio) all pending. Stable CBC and CMP. Persistent pain left hand 2nd MCP joint--increaseduptake on PET/CT but no lesion on left hand xray from 11/2020. Sending for ortho evaluation. For nowcontinue once monthly Daratumumab. F/u with myeloma labs and exam in 2 months, sooner prn. --05/24/2021: Bone marrow biopsy does not show significant progression although poor prognosis mutation 1q with 13q on FISH. Hypocellular with recent worseningplatelets without bleeding--will recheck B12, folate, and ferritin. [...] sent for plain films of the hip femurand knee showing degenerative changes but no acute [...] progression although she still has slow rise inlambda light chain and platelet count remains in [...] check. She will sign Revlimid consent Thursday. Sheis in agreement with this plan. --09/20/2021: Started daratumumab loading doses weekly with Revlimid on 09/04/2021. Held therapy forANC 900 and platelet 42,000 with sinus infection, now resolved and resumed Revlimid 5mg daily on 09/17. Will continue therapy as prescribed with weekly CBC and hold Revlimid as needed for cytopenias.Evaluation for [facility]T therapy at [facility]. Send myeloma labs and skeletal survey [...] current cycle of Revlimid with change to pomalidomide4 mg daily, follow weekly CBCs after change in therapy and determine optimal dose based on symptomsand cytopenias. Patient is in agreement with this plan. Next follow-up with me in 1 month and we will defer next light chain analysis until 1 month after change in therapy. --02/19/2022: Continued rise in lambda light chains and worsening thrombocytopenia. Today we reviewed informed consent for adding pomalidomide 3 mg daily days 1 through 21 every 28 cycle 2 every otherweek daratumumab. We are dropping Revlimid due to [...] initial cycle was only given 03/05-03/13/2022. Now yamile has complete resolution of symptoms she may resume pomalidomide at 1 dose level reduction 2 mg daily for days 1 through 21 of each 28-day cycle. We are also holding her daratumumab today due to declining her platelet count 41,000 without bleeding. Repeat kappa/lambda light chain ratio was increased 80 on 5 4but this was her first dose of pomalidomide. Plan anticipate arrival of pomalidomide within the next 1 to 2 weeks and she may resume daratumumab on day1 of therapy. Her next follow-up will be [...] for following myeloma show normal mild increase herfree lambda from 87 to 106, kappa/lambda ratio decreased 0.10-0.09. I will give her 1 more month ofpomalidomide with daratumumab and dexamethasone. The pomalidomide dose will be changed to 2 mg p.o.days 1 through 14, off days 15 through [...] bony lesions. Her kappa/lambda light chain ratio remainsrelatively stable since early March (0.09-0.11) with free lambda light chainsnow relatively stable (106-109). I advised continuing her current regimen and reevaluating with kappa/lambda light chain ratio in 2 months. Continue current dosing and close observation due to platelet count 48,000. No signs or symptomsof infection. Patient is in agreement with this plan. --07/10/2022: Mojgan has no new symptoms, but continued cytopenias with 2 weeks of pomalidomide helddue to recurrent neutropenia and persistent thrombocytopenia (40-50,000). Continued uptrending lambda light chains consistent with progression of myeloma. We did discuss bone marrow biopsy, but this would not policy change clerk, therefore we will give Pomalyst (now decreasedto 2mg Thursday and only) with last dose Daratumumab tomorrow. 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 --09/17/2022: Mojgan is here for cycle 3 of modified CYKLONE regimen. She continues to do ok with only mild fatigue, no other new complaints or s/s of infection. She is ok to treat per discussion with Dr. Marinelli despite low WBC, ANCand platelets. She will follow-up in 3 weeks [...] treatment. She will follow-up in 4wks with for treatment and with repeat CBC, CMP, SPEP, VAHID, immunoglobulins, and FLC. She is in agreement with this plan and has no questions. --10/29/2022: Stable symptoms on current therapy. Recent viral infection with worsening cytopenias.She has been off weekly therapy for the last 2 weeks due to cytopenias, therefore we will hold 1 further week and if her blood counts meet parameters, she will have dose reduced Carfilzomib 27-->20mg/m2 IV weekly, Cyclophosphamide 300-->240mg/m2 IV weekly, and Dexamethasone 20mg IV/po weekly. She is overdue for echo which was ordered today and we will check results beforeresuming therapy. Next follow-up with me in 6 weeks or sooner as needed. [place]/lambda light chains were reviewed and doshow partial response over the last 3 months. We will continue to follow at least every 2 to 3 months while ontherapy. . No longer a candidate for Blenrep--access removed by FDA for limitedefficacy. Moderate complexity 35 minute followup visit. --11/26/2022: No new symptoms with ongoing response of lambda light chains but persistent cytopenias. In absence of new symptoms of infection or bleeding, we will continue therapy with further dose reduction of cyclophosphamide to 180mg/m2 IV weekly with stable dose Kyprolis 20mg/m2 IV weekly and Dex amethasone. Discussed with Dr. Benavidez at --he would support holding therapyand observation if persistent cytopenias and consider bone marrow biopsy. For now will continue monthly followup and myeloma labs every 1-2 months. She may be a candidate for bispecific antibody in the future if refractory or intolerantof current therapy. Echo stable cardiac function EF [...] persistent cytopenias and sinusitis. She now has NPO308 and platelets 37,000 without bleeding. Relatively stable lambda light chains in 40s range. I will hold therapy another 2 weeks, give Augmentin 875mg bid x 2 weeks for persistent sinusitis (no airfluid levels on CT scan), and send referral to Dr. Benavidez for possible CD3/BCMA bispecific antibody therapy (risk of cytokine release syndromewith first dose, requires inpatient observation at a tertiary center). If consult is delayed and persistent cytopenias at 2 week followup, I may consider repeat bone marrow biopsy at that time. Moderate complexity 35 minute followup visit. (2) Frontal sinusitis Qualifiers: Chronicity: chronic Qualified Code(s): J32.1 - Chronic frontal sinusitis Sinus CT showed no air fluid levels, and no improvement after Amoxicillin x 2 weeks. Will hold chemo as noted above and give another Augmentin 875mg/m2 bid x2 weeks due to headaches, neutropenia and h/o recurrent sinusitis. Consider ENTevaluation for nasopharyngoscopy if persistent symptoms at 2 week followup. (3) Chemotherapy-induced neutropenia ANC 700. Previously held therapy one week and resumed Kyprolis and cyclophosphamide at 20% DR as noted above. At 11/26/2022 followup, maintained current Kyprolis dose and dose reduce cyclophosphamide another 20% to 180mg/m2 weekly. --Chemo remains on hold since 12/04/2022 (last dose) due to sinusitis with recurrent neutropenia. 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 I previously reviewed her outpatient records from [facility], including review of notes, laboratories, and prior bone marrow biopsy 13 years ago. 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 Most recent platelet count is relatively stable at 54,000 but no clinical bleeding. She waspreviously referred to weight reduction clinic and may have slow improvement of steatohepatitis with lifestyle modification. Unless she has active bleeding or planned surgery, we will continue observation during treatment of active myelomato commence next month as noted above. --Agree with recommendation for EGD surveillance for varices (last was 09/2018--negative). This will be deferred during current COVID-19 epidemic. --Prior vitamin B12 and folic acid are normal, for known history of neuropathy. As noted above, I reviewed the negative M spike on serum protein electrophoresiswith immunofixation, but positive for Bence Murray protein on urine protein electrophoresis. Her Quantitative immunoglobulins IgG, IgA, and I gM were all within normal limits, however her serum kappa lambda light chain analysis showeda predominance of lambda light chains. --Previous labs for lupus anticoagulant with DRVVT, hexagonal phase phospholipid, anti-cardiolipin IgG and IgA, and beta 2 glycoprotein IgG and IgA were within normal limits. --Evaluated in ED November 2019 for epistaxis which resolved. Platelet count wasstable at 12/28/2019 follow-up. She continues surveillance with liver clinic at [facility] and I will continue to follow her every 6 months, sooner if newbleeding issues arise. --04/02/2020: We reviewed informed consent for Daratumumab/Velcade/Dexamethasone for active myeloma therapy. I requested prior liver biopsy results and notes from liver clinic at [facility]. Platelet count in 40,000 range but patient has had no active bleeding following infusion port placement 03/22/2020. --08/13/2020: Cycle 6 week 2 toxicity check with improved thrombocytopenia 79,000 range with no bleeding. We will continue current dosing with Velcade 0.7mg/m2 sq (now once weekly), dexamethasone 20 mg weekly, and full dose daratumumab with close follow-up of liver function and platelet counts. --09/24/2020, 01/21/2021, 03/28/2021: Platelets stable 60-70,000 with no new toxicities, started Daratumumab maintenance 10/02/2020. --04/24/2021: Platelets now down to 57,000 with rising lambda light chains. Will eval with repeat bone marrow biopsy due to nonsecretory myeloma. --05/24/2021: Bone marrow hypocellular without significant myeloma progression. Normal B12/folate stores, continue Daratumumab maintenance. --08/16/2021: Persistent thrombocytopenia in 50,000 range, consider change in therapy due to risinglambda light chains. Will check echo and review case withDrErna Reema at to discuss next line of therapy. --08/30/2021: Stable platelets--decision to resume weekly Daratumumab 16mg first 3 cycles and change to Revlimid 5mg daily 1-21 each 28 day cycle--titrate as tolerated --09/20/2021: Platelets have declined to 40-50,000 range without mucosal bleeding. Held Revlimid atplatelets 42,000 during sinus infection, resumed after one week off. Will follow weekly CBCs on Daratumumab/Revlimid. --12/18/2021, 01/22/2022: Platelets still in the 50,000 range without mucosal bleeding. Current dosing of daratumumab every 2 weeks and Revlimid 5 mg daily 2weeks on 2 weeks off--plan to change to pomalidomide 3 mg daily next cycle. -- 02/19/2022: Last week platelets were 48,000 and we held Revlimid. This week platelets 58,000 but continuing to hold Revlimid due to change to daratumumab 16mg/kg IV every 2 weeks with pomalidomide 3 mg daily days 1 through 21 every 28-day cycle -- 03/19/2022: Platelets were down to 41,000 and we held daratumumab as well as Pomalyst for rash asnoted above. Resume Pomalyst at 2 mg days 1 through 21 every 28 days. Continue daratumumab 16 mg/kgevery 2 weeks. -- 04/09/2022: Platelets down to 40,000. Okay to give daratumumab 16 mg/kg IV every 2 weeks but Pomalyst dose will be changed to 2 mg days 1 through 14 every 28 days. Follow-up 1 month. -- 05/07/2022: Platelets 48,000. Continue monthly daratumumab 16mg/kg IV with same Pomalyst dose 2mg daily D1-14 every 28 days. Extend next follow-up with kappa/lambda light chain ratio to 2 months. --07/10/2022: Platelets 53,000 with ANC now 600 (held Pomalyst one week for ANC 300). May have one dose Pomalyst today, then hold for change in therapy. Will have platelet transfusion as needed for change in therapy to Kyprolis/Cytoxan/Deamethasone. --08/20/2022: Platelets declined to mid 30,000 range about 4 weeks ago--now up to 56,000 and WBC 1600 and ANC 1000 on Kyprolis/Cytoxan/Deamethasone. No activebleeding. Continue current dosing and f/uin 3 weeks. --09/17/2022: Platelets at 43,000 without recent transfusion. WBC and ANC at 1.4and 600 respectively. Will continue with treatment. --10/15/2022: Platelets at 49,000. No s/s of bleeding. Ok for treatment. --10/29/2022: Platelets at 31,000 with ANC 400. Dose reductions recommended asnoted above. No active bleeding. Follow-up 6 weeks. --11/26/2022: Platelets at 40,000 with ANC 700. Dose reduction cyclophosphamideonly as noted above. No active bleeding. Follow-up 4 weeks. --No chemo since 12/04/2022. Platelets now 37,000. Referring for eval for bispecific antibodies for multiple myeloma. Still has no bleeding, f/u 2 weeks. (5) Cancer-related pain Improved symptoms after palliative radiation to bilateral hips--one dose 02/07/2020. Will continue tofollow on myeloma chemotherapy. Extensive, but stable bone involvement on F-18 PET/CT 12/2020 and 04/2021. Recent increased leftneck and shoulder pain. Increased oxycodone dosing to three times daily, no unusual right hip pain is noted above--followed by palliative medicine. -Completed right hip radiation with persistent but improved pain--no new pain issues with follow-upvisit with radiation in early March 2022, follow-up as needed. Will continue to follow with palliative medicine. 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 She [facility]ref[facility] to attempt weight reduction through diet and exercise that may prevent further fatty infiltration that may further impairher liver function. [facility] hepatology discussed liver transplant but sheis likely no longer a candidate for this given active myeloma. We chose least hepatotoxic regimen for treatment of her active myeloma with 50% dose reduction of Velcade. Liver function remained stable since start of therapy 04/10/2020. --Requested prior liver biopsy and [facility] liver clinic records. Dose reduction 20% Kyprolis due to KAPADIA with cirrhosis (normal bilirubin and transaminases). Stable LFTs on current Kyprolis/Cytoxan/Deamethasone therapy. (7) Encounter for chemotherapy management Initial Daratumumab maintenance tolerated well without significant toxicities. Bone marrow biopsy did not reveal indication for change in therapy. --09/04/2021: Repeat loading with weekly Daratumumab 16mg first 3 cycles and changed to Revlimid 5mgdaily 1-21 each 28 day cycle--02/19/2022 reviewed informed consent to change to pomalidomide next cycle. --03/19/2022. Pomalyst was stopped after 1 week of therapy on 03/13/2022. Daratumumab held 03/19/2022 due to platelet count 41,000. We resumed both medications on arrival of dose reduce Pomalyst 2 mg days 1 through 21 every 28- day cycle. -- 04/09/2022: Daratumumab is monthly maintenance. Mid July: last dose Pomalyst 2mg today with ANC 600. -- 07/30/2022: Changed chemo to Kyprolis/Cytoxan, normal baseline Echo. -- 10/29/2022: Dose reductions for cytopenias Carfilzomib 27-->20mg/m2 IV weekly, Cyclophosphamide 300--240mg/m2 IV weekly, and Dexamethasone 20mg IV/po weekly. Will continue every 3 week therapy until progression or intolerable toxicity. --11/26/2022: Platelets at 31,000 with ANC 400. Dose reductions Carfilzomib 27-->20mg/m2 IV weekly, Cyclophosphamide 300--240-->180mg/m2 IV weekly, and Dexamethasone 20mg IV/po weekly. Therapy on hold since 12/04/2022 for cytopenias and sinusitis. - Chemo Plan Chemo Plan (Dose, Rate, Freq): Carfilzomib 27-->20mg/m2 IV weekly, Cyclophosphamide 300--240-->180mg/m2 IV weekly, and Dexamethasone 20mg IV/po weekly. On hold since 12/04/2022. Goal of Treatment: Palliative - Time with Patient Time Spent with Patient (Follow Up Visit): 35 minutes - Mod complexity--hold therapy for recurrent cytopenias and persistent sinusitis, tertiary referral forpossible bispecific antibody therapy. Coordination of Care & Counseling Time: Greater than 50% of time spent with patient was for coordination of care (as documented) and [id number] counseling of patient and/or family. Dictated By: Fabiola Marinelli MD DD/ [id number] Signed By: <Electronically signed by MD Fabiola Marinelli> 12/27/22 [address] [facility] Work Phone: [phone] 801-212701-25-2023 Progress note Author Fabiola Marinelli [facility] November 26, 2022 6:57pmNote Date/TimeJan2022 10:53[facility] at [address] [address] Hem/Onc Follow Up Note - OP Signed Patient: Mojgan Pérez MR#: [id number] : 1955 Acct:[id number] Age/Sex: 67 / F Type: REG RCR Copies to: MD Yinka Downey MD Ehsan Malek, MD~ Subjective Date/Time of Service: Date of Service: 11/26/2022 Time of Service: 10:51 Chief Complaint: Patient is here today for a 1 month follow up visit for multiple myeloma and go over labs and echo HPI: 11/26/2022: Mojgan is here for monthly followup on modified CYKLONE therapy. Notes increased frontal headaches over the past with with nasal congestion--sending for sinus CT and 2 week course of Augmentin bid. Platelet count recently dropped as low as 25-31,000 without bleeding (currently 40,000), WBC to 1300 with ANC 700. No current fever, chills or symptoms of infection. Prior dose reductions of Kyprolis to 20mg/m2 weekly with cyclophosphamide 240mg/m2 weekly). Echo with normal EF 55-60%. We will further dose reduce cyclophosphamide to 180mg/m2 (overall 40% dose reduction) and maintain Kyprolis at 20mg/m2. She has ongoing decline of lambda light chains over the past 6 months indicating response. I discussed her case with Dr. Piter Benavidez who notedtherapy could be held if worsening cytopenias. For now continue monthly followup with myeloma labs (quant immunoglobulins and kappa/lambda light chains). Bleeding precautions and f/u sooner if new symptoms arise. Moderate complexity 35-minute visit for review of complex labs and adjustment of chemotherapy regimen. 10/29/2022: I asked Mojgan to return today due to cytopenias on labs and discussion of either dosereduction or changing therapy. She notes that over the last 2 weeks she has had cough, body aches, worsening fatigue, but no fever. She was diagnosed with a non-COVID viral syndrome. Her symptoms arestarting to get better but she has more significant cytopenias with absolute neutrophil count of only 400 with total white blood cell count 1000. In addition her platelet count is 31,000 she has not had any active bleeding issues. We were unable to contact her to tell her not to come in for chemo but I decided to see her today since she was last evaluated by nurse practitioner last 2 visits. Hermyeloma labs show relatively stable lambda light chains which appear to have responded since start oftherapy in July. She is due for her echocardiogram and due to her cytopenias we will hold therapy today and plan 1 level dose reductions of both cyclophosphamide (from 300 to 240 mg/m2 IV weekly) with Kyprolis dose reduction (from 27 to 20mg/m2 IV weekly). She has been off therapy past 2 weeksdue to cytopenias. If she is unable to resume therapy we may consider an alternate therapy such as Blenrep. She is otherwise in agreement with current plan of care. Moderate complexity 35-minute visit for review of complex labs and adjustment of chemotherapy regimen. 10/15/2022: Mojgan is here for follow-up for her multiple myeloma on modified CYKLONE therapy. Shecontinues to do well and remains active at home. She deniesshortness of breath, chest pain, nausea,vomiting, diarrhea or constipation. Sheis eating and drinking well. No fevers, chills, sweats, bleed ing or rash. She does note mild tongue soreness and on exam it appears she may be developing thrush, very mild currently on the tongue only. We will prescribe nystatin for this. Labs are reviewed andstable overall, ok for treatment. She will follow-upin 4wks with Dr. Marinelli with repeat labs and treatment. 09/17/2022: Mojgan is here for follow-up on modified CYKLONE therapy for her multiple myeloma. Shecontinues with fatigue, but otherwise no new complaints. She has no s/s of infection, no shortness of breath, chest pain, n/v/d or other concerns. In review of her labs, her WBC are 1.4, ANC 0.6 and platelets 43,000. Per Dr. Marinelli, given no s/s of infection and she otherwise feels well, she is okfor treatment. We discussed signs to report related to infection such as fever, chills, etc. and she will call with any concerns. We will follow-up in 3wks withrepeat labs. 08/20/2022: Mojgan is here for 3-week follow-up on modified CYKLONE therapy (cyclophosphamide 300 mg/m2 IV weekly, dexamethasone 20 mg IV weekly, and carfilzomib now 56 mg/m2 IV weekly). Baseline echocardiogram 07/18/2022 showed normal ejection fraction 60 to 65%. I discussed her case with Dr. Benavidez who advised that despite her significant thrombocytopenia she should be treated withfull dose cyclophosphamide/carfilzomib and may support with transfusions as needed. The patient's lowest platelet counts were in the 30,000's after her first week of therapy but now is up to 56,000. She has not hadany clinical bleeding. She also has persistent leukopenia 1900 today with absolute neutrophilcount now 1000. At this point as long as she does not have any significant symptoms of therapy or signs ofinfection or active bleeding we will continue her current dosing. She otherwise notes mild fatigue but no other toxicities. Prior skin rash on Pomalyst has resolved. She will follow-up in 3 weeks fortoxicity check with nurse practitioner and we will order her restaging myeloma labs with serum protein electrophoresis with immunofixation, quantitative immunoglobulins, and kappa/lambda light chain ratio. She may return sooner if new issues arise. Moderate complexity follow-up over 30 minutes to ad dress cytopenias on CYKLONE therapy. 07/10/2022: Mojgan is here for 2-month follow-up of myeloma labs. No changes in medical history and platelet count remains in the 40-50,000 range without bleeding. We held her Pomalyst (as well as daratumumab) this week due to absolute neutrophil count of 300 without any recent infections. She previously held it for 1 week due to neutropenia, took 1 tablet, then had to hold a second week due to neutropenia. We reviewed her kappa/lambda light chain ratio which continues to progress in the wrong direction (total lambda light chains now increased from 109 to 125.7 with ratio from 0.11 to 0.08). Her progressive cytopenias and worsening light chains likely reflects progression of myeloma. We could repeat her bone marrow biopsy but her most recent bone marrow biopsy on10/09/2021 showed hypercellular bone marrow (30%) with slight megakaryocytic and granulocytic hyperplasia and only 1.5% plasma cells (Lambda restricted by flow cytometry). This likely would not change her current management and I discussedher case with Dr. Benavidez of malignant hematology who recommended considering carfilzomib (Kyprolis) with cyclophosphamide. I will contact patient to coordinate baseline echocardiogram forKyprolis and likely she will require dosereductions for her underlying hepatic dysfunction and chronic cytopenias. AfterI reviewed dosing with Dr. Benavidez and pharmacy and review her echocardiogram, jayne coordinate follow-up for change in therapy and chemotherapy consent. For now we will continue daratumumab with altered dose of Pomalyst to 2 mg twice weekly ( and Mondays) until change in therapy. I will not likely send dose reduction of Pomalyst due to planned change in therapy. Moderate complexity 35 minutes for coordination of care. 05/07/2022: Improved rash on 2 mg of Pomalyst, now mild pruritus. Platelet count is 48,000 without bleeding issues. Continues weekly prednisone. Daratumumab isnow monthly since early April. Repeat kappa/lambda light chain ratio slightly higher (106 to 109) But the upward trend is starting to flatten out. F-18 Axumin PET/CT shows no new lesions, relatively stable from 1 year ago. For now given her stable symptoms and pronounced cytopenias, we will continue her current dosing daratumumab/Pomalyst/dexamethasone. Next follow-up with me in 2 months. She will return sooner for issues arise. Moderate complexity visit over 35 minutes. 04/09/2022: Mojgan continues every 2-week durvalumab with Pomalyst now 2 mg daily (dose reduced due to diffuse rash). She is now day 14 of the cycle and isnoted to have platelet count of 40,000 (no associated mucosal bleeding, bright red blood per rectum, or hematuria). No recurrent rash on this dose. She continues her weekly prednisone. I recommended changing her schedule of Pomalyst to 2 mg daily for days 1 through 14, off days 15 through 28 cycle and continuing daratumumab. Her most recent immunoglobulins have shown a steady trend upward for lambda light chain and decrease of kappa/lambda light chain ratio, however since she is now stabilizing her dosing of daratumumab/Pomalyst/dexamethasone I recommend continuing her current dosing for 1 more cycle with repeat kappa/lambda light chain ratio in another month. In addition I will set her up for F-18 Axumin PET/CT to compare to PET/CT from 1 year ago (her skeletal survey showed no lesions 6 months ago). She denies any current bone pain. She will proceed with daratumumab dose as previously ordered today. 03/19/2022: Mojgan is here for follow-up after adverse cutaneous reaction to her first cycle of Pomalyst. She noted that after starting her first dose of Pomalyst 3 mg daily on 03/05/2022 that about 1 week later on 03/13/2022 she had a diffuse rash all over that was pruritic with increased erythema. She did not have nausea, vomiting, constipation, diarrhea, dyspnea, or any other adverse reactions. She did have a decline of platelet count to 41,000 this week which may be due to her Pomalyst. She called the pharmacy and was instructed to discontinue Pomalyst on 03/13/2022. Her rash has mostly resolved with no furtherpruritus but she still has a few macular lesions over the legs. She has been using Benadryl and topical cortisone cream with improvement of the rash. Otherwise her laboratories are stable. She does have an increased kappa/lambda light chain ratio from 03/05/2022 but this was her first day of therapy. I recommended resuming Pomalyst at next dose level 2 mg daily as soon as new medic ation arrives for 3 weeks on 1 week off. If she has recurrent rash she will again stop and we will consider further dose adjustment. Due to her thrombocytopenia we will hold her daratumumab today andconsume with first day of Pomalyst next week. She may follow-up in about 3 to 4 weeks, possibly with virologist covering at that time. Patient expressed understanding. 02/19/2022: Mojgan is here for follow-up--no new symptoms but her platelet countdropped to 48,000 last week and we are again holding her Revlimid. She has not had any bleeding or infection recently, but she has had uptrending lambda light chains and we discussed changing her therapy from lenalidomide to pomalidomide and continuing her daratumumab which is currently every other week. Her only other concern is constipation which is likely related to her pain medications. ANC was 800 today. --Today we reviewed chemotherapy counseling for lenalidomide in combination withdaratumumab/dexamethasone (stopping Revlimid). Common toxicities were reviewed to include allergic reactions, myelosuppression, thrombosis, fatigue, nausea, vomiting, constipation, diarrhea, mouth sores, and risk of secondary malignancies. Other toxicities may include pneumonitis, neurologic, hepatic andrenal toxicities. The patient signed informed consent and will follow-up as directed. Planning a trip to [place] on March 06, therefore we will hold Revlimid until arrival of her pomalidomide, then have oral chemotherapy visit. We are starting pomalidomide at 3 mg daily days 1 through 21 every 28 days due to baseline liver dysfunction. Follow-up cycle 1 week 2. We will recheck her baseline myeloma labs on start day of pomalidomide with daratumumab. 01/22/2022: Mojgan has no new complaints. She was seen by Dr. Benavidez at for evaluation for transplant and CAR-T options but given her profound thrombocytopenia, neither of these options are felt tuyet optimal for her. She has had gradual worsening of her lambda light chains without any change of r enalfunction or hypercalcemia. Her chronic thrombocytopenia has remained in the 40-50,000 range which is lower than her prior baseline. I reviewed her options with Dr. Benavidez and it is difficult to assess best options due to her chronic thrombocytopenia but standard of care at this point would be tocontinue her daratumumab and transition from the lenalidomide to pomalidomide. We will follow closely with weekly CBCs to determine if thrombocytopenia worsens on thisregimen. I will defer changing her regimen for 1 month since she is starting a new cycle of lenalidomide and has had slow progression of her lambda light chains. She will return in 1 month and will discuss pomalidomide and signed inf ormed consent. Patient is in agreement with this plan. 12/18/2021: Mojgan is here for 3-month follow-up. She has not had any significant changes in medical history other than testing positive for coronavirus infection in early November 2021. She has not been immunized for coronavirus. She notes persistent fatigue but no bone pain. No other recent infections or bleeding episodes. She recently changed from weekly to now every 2 weeks daratumumab 16 mg/kg and remains on low-dose lenalidomide 5 mg daily for2 weeks on 1 week off due to prior thrombocytopenia worsening. October 2021 skeletal survey showed no osteolytic lesions suggestive of myeloma. Initially she had improvement of her platelets to 70-100,000 but today platelets are down to 54,000. She also had some improvement of leukopenia but this is again down to 2800 with ANC 1300 today. Urinerandom M spike is not observed, but she has had progressive increase of her lambda light chains from 30 in December 2020 to 60.2 in October 2021. [place] lambda ratio has also started to decline to 0.21 in October 2021. For now I'm continuing her daratumumab with Revlimid at current dosing, but I contacted Dr. Benavidez at [facility] for CAR-T celleligibility. If he has recommendations to change her therapy, I will let her know. Otherwise I will have her follow-up with me in 1 month (she will have repeat myeloma labs 1 week prior to visit). 09/20/2021: After telephone consultation with Dr. Benavidez at , we resumed repeat loading doses of weekly daratumumab 16mg/kg and changed to low dose lenalidomide 5mg daily. She has had 2 courses of antibiotics for sinus infection over the past month and was noted to have neutropenia with ANC 900, platelets 44,000 week 2 of Revlimid, therefore this was held for one week and resumed Thursday after ANC returned to 1000. Platelet counts have persisted at 40-50,000 range without active bleeding. Otherwise tolerating therapy well. Still improved hip pain and ambulation after recent course of palliative radiation therapy. For now we will continue Daratumumab with Revlimid and Dexamethasone as ordered with weekly CBC. Gradually increasing lambda light chains--pending evaluation at for CAR-T celltherapy eligibility (has not yetbeen contacted for appointment). 4 week f/u with me with CBC, CMP, and myeloma labs (follow quant immunoglobulins and [place]/Lambda light chain ratio with skeletal survey in 2 weeks so results available for appointment). 08/30/2021: Mojgan is here for 2-week follow-up for completion of her palliative radiation therapywith significant improvement of pain in her right hip and pelvis. We sent her for echocardiogram performed 08/23/2021 at [facility] [place] as baseline for possible Kyprolis therapy. This returned with ejection fraction 60% which is normal with grade 1 left ventricular diastolic dysfunction and 1+ tricuspid valve regurgitation and trace to 1+ aortic valve regurgitation.Otherwise unremarkable. I discussed her case with Dr. Benavidez of malignant hematology at [facility]. He advised against Kyprolis therapy given her underlying liver dysfunction and recommended repeating loading doses of daratumumab weekly as well as low-dose lenalidomide which we will start at 5 mg daily since she has chronic thrombocytopenia. We will send for CAR-T therapy as a possible therapeutic option. The patient agreed with changing daratumumab to weekly and we will haveher sign consent next week for change to low-dose lenalidomide therapy. Next follow-up with me will be in about 2 weeks for week 2 lenalidomide with daratumumab. 08/16/2021: One month followup, she recently completed palliative radiation therapy to right hip and pelvis. Platelet count still in 50,000 range with increased bruising but no bleeding. Still has some pain in right hip but slowlyimproving after radiation therapy. Slowly worsening lambda light chain --she is scheduled for ECHO next week. We discussed possibly changing therapy from Daratumumab, Velcade, Dexamethasone to Kyprolis, low dose lenalidomide, dexamethasone if adequate cardiac function. I will discuss this with Dr. Benavidez for dosing and determine if CAR-T therapy is another possible option (although we may be limited due to chronic thrombocytopenia and liver disease). Followup 2-3 weeks to review results and possible consent for change in therapy. 07/17/2021: 2-month follow-up on multiple myeloma. She reports that Thursday she developed severe painin the right leg that started proximal to the knee creating it to the hip. She had increased pain with weightbearing on the right and has been using a walker at home secondary to this. She did not feel a pop or shift in ambulation, but has been using her Percocet for pain control at home. In reviewing her laboratories platelet count remains in the 52,000 range and sheis otherwisPe tolerating daratumumab well. I recommended sending for right hip,femur, and knee plain film imaging that did not show any fracture. She does have a gradually rising lambda light chain but no other significant changes in her labs. I reviewed her case with Dr. Cheng of orthopedic surgery who also reviewed her priorPET/CT showing uptake in this area. We will obtain a right hip MRI, keep her completely nonweightbearing on the right leg with walker for transfers and she has an urgent orthopedic follow-up following her MRI. I will follow-up with her in 1 month to review management and we will determine if she requires prophylactic kenton for stability of the hip based on her MRI. 05/24/2021: Here to followup 05/03/2021 bone marrow biopsy--noted to have decreased cellularity 25%, flow cytometry with 0.2% plasma cells and a 1.5% monoclonal B- cell population. FISH showed 13q and 1qabnormalities but normal cytogenetics. No myelodysplasia seen. I reassured her that recent thrombocytopenia is more likely related to splenic sequestration from liver disease and not worsening myeloma. For now continue current regimen. Will alsorecheck B12, folate, and iron profile with next labs--followup in 2 months with myeloma labs, sooner prn. 04/24/2021: 1 month followup to review PET/CT. Over the past 2 days, she notes episodes of sharp left sided neck pain over sternocleidomastoid muscle and mastoid area. No radiculopathy down left upperextremity. No new side effects of Daratumumab. F18 PET/CT shows largely unchanged diffuse uptake through multiple bony sites in axial and articular skeleton. Lambda light chains risingover past 2 month and decline of platelet count to 57,000 without bleeding. MRIof thoracic spine did not show significant thoracic canal stenosis. Due to worsening neck pain with extensive uptake on F18 PET/CT--we will send for cervical MRI. Palliative medicine has increased Percocet to tid. We will repeat bone marrow biopsy due to rising lambda light chain and falling platelet count to determine if progression of myeloma noted. This will be scheduled in the next 1-2 weeks. 03/28/2021: 2 month followup for multiple myeloma. More recently notes neck andleft shoulder pain. Fatigue and constipation stable. Labs show stable anemia and thrombocytopenia. Serum M-spike now asymmetric gamma (no quantifiable spike). Slowly improving IgG to near normal. [place]/lambda light chain ratio normal with mildly increased lambda light chains. MRI of thoracic spine for evaluation of increasing left shoulder pain. For now we will continue current dosing of Daratumumab and recheck F18 PET/CT for response in late April 2021. 01/21/2021: Mojgan is accompanied by her daughter for 2 month followup--now Daratumumab maintenance. She notes persistent fatigue and recently added as needed laxatives to stool softener for management of constipation. Persistent left hand pain--correlates to an area of bone uptake on PET/CT. Overall F18 PET/CT appears stable with no new areas if FDG avidity (still extensive bone FDGuptake). We reviewed prior plain xrays of left hand from November--she agrees toevaluation by orthopedic surgery (determine if biopsy or steroid injections). M-spike and kappa/lambda light chains pending. CBC (platelets 60-70,000); CMP stable. Will followup in 2 months with exam and labs. 11/26/2020: Mojgan is accompanied by her daughter for 2 month followup--now Daratumumab maintenance. Stable leukopenia/low platelet 70,000. Notes 3 days of hematuria and mild dysuria. Sending UA and possible culture. Otherwise no new bone pain. Blood sugars stable. M-spike and kappa/lambda light chain ratiostable. Next f/u 2 months after one year f/u PET/CT to determine response to therapy. 09/24/2020: Mojgan presents (accompanied by her daughter) for cycle 8, week 2 followup [id number] mg/kg IV weekly, Dexamethasone 20mg weekly, and Velcade 0.7 mg/m? now sq once weekly for every 3-week cycle (21 days). She notes neuropathy symptoms are stable. Tolerating therapy well without fatigue. No bleeding and thrombocytopenia stable in 60-70,0000 range. On 10/02 she will be due for maintenance therapy with Daratumumab alone once per month. I will f/u with her in 2 months with myeloma labs, sooner as needed. Velcade and Dexamethasone will be stopped after 8 cycles. 08/13/2020: Mojgan is here for cycle 6, week 2 (day 14) daratumumab 16 mg/kg weekly, Velcade 0.7 mg/m? now sq once weekly for every 3-week cycle (21 days), and dexamethasone 20 mg weekly. No new symptoms--improving thrombocytopenia to 79,000 and improved leukopenia. 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 Still has improvement of M-spike, IgA normal and decreased lambda light chain and K/L ratio. We discussed that week 25 in Oct she will change to monthly daratumumab with weekly Velcade (1mg/m2) and Dexamethasone. Continue to follow every 6-8 weeks until maintenance schedule. 06/18/2020: Mojgan is here for cycle 3 week 3 (day 21) daratumumab 16 mg/kg weekly, Velcade 0.7 mg/m? now sq once weekly for every 5-week cycle (35 days), and dexamethasone 20 mg weekly. Tolerating well with stable leukopenia and thrombocytopenia. Mild increased symptoms of hand and foot neuropathy, but no limitation in activity. Now following with diabetes management clinic with variable glucosecontrol. We reviewed lower IgA (now M-spike IgG kappa after Daratumumab--previously IgA lambda). Lambda light chain has decreased from 516 to 41.3 to now 18.5 with normalization of K/L ratio. Continue followup myeloma labs in 6 weeks, visit in 8 weeks. 05/21/2020: Mojgan is here for cycle 2 (week 7 overall) daratumumab 16 mg/kg weekly, Velcade 0.7 mg/m? now sq once weekly for every 5-week cycle (35 days), and dexamethasone 20 mg weekly. Tolerating well with stable leukopenia and thrombocytopenia. No significant neuropathy. Noted to have improvement in lambda light chains. No further daratumumab infusion reactions. No infections,stable constipation, pain control improved. No other complaints. Continue monthly f/u with myeloma labs. --Diabetes management--added insulin on dexamethasone days. Hyperglycemia improving. 01/18/2020 (phone followup)--The patient's son was available by phone and her daughter was contactedin a separate phone call as patient presented unaccompanied due to COVID-19 precautions in our clinic during the current epidemic. Bone marrow biopsy results were reviewed as follows from procedure pe rformed 01/26/2020: --Bone marrow biopsy was suboptimal for evaluation. --Increased lambda light chain restricted monoclonal plasma cells (1.9% by flow cytometry, approximately 6% and aspirate count, but 50% by immunohistochemical stains [id number]). Sideroblastic iron present, negative for ring sideroblasts. Peripheral blood smear with mild red blood cell anisocytosis and polychromasia, leukopenia with absolute neutropenia (1000) and thrombocytopenia (54,000) consistent with prior baseline. Note: I discussed the results with Dr. Crook 01/26/2020. Preliminary findings were also discussed with Dr. Cummings 01/27/2020. Morphologic findings, immunohistochemical stains, flow cytometry, and ancillary studies may under represent the extent and severity of disease. The results of FISH myeloma panelwith prognostic markers and cytogenetic analysis are pending. --Given the patient's hip pain and presence of lytic lesions, she meets clinicalcriteria for activemyeloma. Given her hip pain and lytic lesions in weightbearing areas she was offered radiation therapy. She had a limited courseof hypofractionated palliative therapy to bilateral proximal femurs [address] Ahn[address] We discussed that given the COVID-19 epidemic and absence of othersignificant changes other than bony lesions (normal renal function, normal calcium, stable cytopenias), I would defer active therapy for myeloma for 4 to 6 weeks. Since she has significant history ofliver disease I will discuss her case with Dr. Piter Benavidez at [facility] malignant hematology for optimal regimen. The patient is not a transplant candidate given her nonalcoholic steatohepatitis and chronic thrombocytopenia but may be a candidate for either doublet therapy (Revlimid/dexamethasone) or triplet therapy with either Velcade/Revlimid/dexamethasone or daratumumab/Revlimid/dexamethasone. --02/03/2020: Mojgan presented unaccompanied for follow-up of bone marrow aspiration and biopsy performed by Dr. 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 The patient had been noting increased left hip pain over the past several months andplain films of the pelvis and bilateral femurs did show subtle lucencies in the bilateral proximal femurs corresponding to PET/CT findings but no other additional sclerotic lesions identified. No pathologic fractures were seen. --03/05/2020: Mojgan notes improvement of bilateral hip pain since radiation. No other changes in medical history in the past month--no infections, normal renal function, no hypercalcemia. Stable platelet counts without bleeding. Shewas given written literature regarding Dexamethasone, Velcade (thatwould be dose reduced to 0.7mg/m2 twice weekly), weekly Daratumumab and Revlimid, but I will defer decision of which regimen to use until discussion in malignant hematology tumor board. Also referring for infusion port placement prior to initiating therapy. Sign informed consent prior to initiating therapy. --Discussed with Dr. Benavidez who favors Daratumumab combination--will request prior liver biopsy and records from [facility] liver clinic. The patient and her son (by telephone) expressed understanding and will follow- up as directed in 2 weeks for consent and likely start of therapy. --04/02/2020: Mojgan presents after infusion port placement at [facility] by interventional radiology due to platelet count 40,000--she had increased bruising at site post procedure, but this has completely resolved. Her hip painis well controlled since completion of palliative radiation and no newareas of pain. She has previously reviewed information regarding Daratumumab (first dosesplit 8mg/kg IV D1,D2, then if well tolerated 16mg/kg IV weekly), Velcade at about 50% dose (for liver dysfunction) 0.7mg/m2 D1,D4,D8, D11, and [id number] IV weekly--repeat for every 3 week cycles 1st 3 cycles. She will take chemo class and likely start therapy within 2 weeks with toxicity visit in 3 weeks. Today we reviewed chemotherapy counseling for Daratumumab, Velcade, and Dexamethasone. Common toxicities were reviewed to include infusion reaction including rash/dyspnea/wheezing, myelosuppression, fatigue, nausea, vomiting, constipation, diarrhea, mouth sores, and alopecia. Other toxicities may in cludepneumonitis, neurologic, thromboembolism, hyperglycemia, hepatic and renal toxicities. The patient signed informed consent and will follow-up as directed. --04/19/2020: Mojgan is here for cycle 1 week 2 daratumumab 16 mg/kg weekly, Velcade 0.7 mg/m? twice weekly for first 2 weeks of every 3-week cycle, and dexamethasone 20 mg weekly. She did have an infusion reaction with first daratumumab with dyspnea and flushing but this improved after first dose and shehas not had recurrent infusion reactions. We have continued Velcade despite platelet counts in the 40,000 range without bleeding as we know that her baseline platelet counts remain in this range and she has not had any significant change from her baseline. Dexamethasone has caused hyperglycemia with blood sugars up to 400 and we are referring to diabetes management clinic. Otherwise she denies any significant nausea, emesis, fever, chills, night sweats, constipation, diarrhea, rash, mouthsores, or alopecia. She has not had any change of baseline neuropathy. Liver function tests remain stable. She notes that her hip pain is well controlled since prior palliative radiation and she saw radiation oncology earlier this week with no new recommendations. I will send her myeloma labs including serum and urine protein electrophoresis, quantitative immunoglobulins, and serum kappa/lambda light chains in 2 weeks and follow-up with her in 3 weeks. She may be seen sooner if new issues arise. This is a 66-year-old lady on chronic disability has a history of arthritis, diabetes mellitus, hypertension, COPD, GERD, and fibromyalgia who [facility] for chronic mild to moderate thrombocytopenia. She states that she was followed with Dr. Kumari prior to his senior care and was told that she had an elevated protein level as well as thrombocytopenia but never had clinical bleeding. She is 4 para4 without complicationsand was never told that she was thrombocytopenic while . She is had multiple prior surgicalprocedures without any clinical bleeding. She had been recommended for a pain procedure with Dr. Wilson but he declined to do the procedure because her platelet count was less than 100,000. For this reason she received 2 platelet transfusions, with little improvement of her platelet count and her second transfusion resulted in throat tightening due to allergy to platelets . She has never beentreated with steroids and has never been told that she has immune thrombocytopenia. She has mild leukopenia with relative neutropenia, absolute neutrophil count of 400-800 and mild lymphocytosis. Hemoglobin is normal. She has not had any bright red blood per rectum or epistaxis. She has no history ofbleeding within the family however does have a mother and sister diagnosed with colon cancer, a brother diagnosed with lung cancer, and another sister diagnosedwith breast cancer. She had prior pain in the right hand mainly at the first MCP joint with some associated swelling and right foot pain and was evaluated by podiatry. She was told that her blood tests were negative forgout. She had screening with MALLORY, CCP, and rheumatoid factor all of which were negative. She says that she previously saw Dr. Petersen for cirrhosis but did not know of any specific therapy. We reviewed these findings from her liver ultrasound ordered by Dr. Benavidez Summer 2016. Initial consultation with me March 16, 2017. --The patient has been followed by me for some time for diagnosis of smoldering myeloma with a prior bone marrow biopsy May 2017 showing 15% plasma cells but the patient remained asymptomatic without bone pain or other CRAB criteria for therapy. She is also noted to have an ascending aortic aneurysm and has chronicliver disease with cirrhosis secondary to nonalcoholic steatohepatitis. She haschronic thrombocytopenia without bleeding ranging from 50-100,000 this is felt to be due to sequestration from her nonalcoholic steatohepatitis. She was previously on a liver transplant list but was recently notified that she is no longer a candidate for liver transplant. She has had chronic pain from f ibromyalgia but noted increasing bilateral hip and upper thigh pain over the last 6 months. She also is followed for EGD/colonoscopy with last documented procedure 09/21/2018: 1. Normal EGD, 2. Mild sigmoid diverticulosis, 3. Internal hemorrhoids, grade 2, 4. Anal fissure with active bleeding cauterized by bipolar cautery Bone osseous survey in June 2019 showed osteopenia and degenerative changes but no lytic or blastic lesion. Patient had an F-18 PET scan 01/02/2020 which showed multiple areas of involvementof bones with increased SUV activity. She was contacted with these results by phone and I recommended bone marrow aspirate and biopsy for assessment and analysis. Her prior labs were reviewed. Her SPEP does not show anymonoclonal gammopathy. On VAHID there appears to be a trace of monoclonal gammopathy. Free light chain ratio is less than 100. There is no evidence of renal sufficiency. Patient is not anemic. She doeshave some abnormal areas on bone scan. - Summary of Therapies Summary of Therapies: 1. 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 2. She underwent a single dose of palliative radiation therapy to bilateral hips, receiving 800 cGyto right and left hip in 1 fraction in separate vaz (with a single isocenter). The treatments were given with AP/PA vaz [id number] MV photons and MLC blocks. 3. Deferred active therapy for myeloma 2 months given COVID-19 epidemic with increased risk of myelosuppression and viral transmission of contacts. --Follow-up 03/05/2020 I discussed her case with Dr. Piter Benavidez at malignant hematology. --Given her significant hepatic dysfunction, I presented her case at malignant hematology tumor board to discuss optimal therapy. 4. Cycle 1 day 1 04/10/2020: Dose reduced Velcade 0.7 mg/m? twice weekly (day 1,day 4, day 8, day 11)every 3 weeks with dexamethasone 20 mg weekly and daratumumab 16 mg/kg weekly of each 21-day cycle.After first week, Velcade decreased to 0.7mg sq weekly due to thrombocytopenia. --We will need to watch liver function, platelet count, and neuropathy closely on Velcade. 5. Cycle 9 day 1 10/02/2020: Daratumumab 16mg/kg once monthly maintenance therapy until progression. 6. 07/31/2021: Palliative radiation therapy to right supra chondral/soft tissuearea of hip which is PET positive. She received a dose of 3000 cGy in 10 fractions from 07/31/2021 to 08/15/2021 over 15 elapsed days 7. 08/30/2021: Right hip pain improved after radiation. Due to disease progression with persistent cytopenias, changed to repeat loading doses of daratumumab 16 mg/kg weekly for cycles 1 through 3 with Revlimid 5 mg daily for 3 weeks on 1 week off. Held Revlimid second week due to neutropenia with sinus infection, resumed 3 days ago (09/17/2021). Referred for CAR-T therapy evaluation. 8. 12/18/2021: Daratumumab is now 16 mg/kg every 2 weeks with Revlimid 5 mg daily for 2 weeks on 2 weeks off due to neutropenia and thrombocytopenia. Stillpending evaluation for CAR-T therapy. 9. 01/22/2022: Patient is not deemed a candidate for stem cell transplant or CAR- T therapy at this time. Discussed changing from current Revlimid to pomalidomide with continued daratumumab 16 mg/kg every 2 weeks. Plan change in therapy in 1 month. 10. 02/19/2022: Continue daratumumab 16 mg/kg IV every 2 weeks and changed to pomalidomide now 3 mg daily days 1 through 21 of each 28-day cycle (lower dose due to baseline liver dysfunction) -- 03/19/2022: Patient was noted to tolerate Pomalyst only 1 week (03/05- 03/13/2022)due to grade 3 rash. This resolved after stopping medication 1 week later. 1 dose level reduction Pomalyst to 2 mg daily days 1 through 21 of each 28-day cycle. Also holding daratumumab daily for platelet count of 41,000 and will resume at full dose with first dose of Pomalyst. -- 04/09/2022: Platelet 40,000 without bleeding. Will continue monthly Daratumumab with change of Pomalyst to 2mg D1-14 each 28 day cycle (off 2 weeks due to low platelets). Rising lambda light chains,unable to tolerate Pomalyst due to cytopenias, stopped mid 07/2022. 11. 07/18/2022: carfilzomib (dose 20mg/m2 day one then 27mg/m2 D8, D15) with cyclophosphamide 300mg IV weekly and weekly dexamethasone. Baseline echocardiogram EF 60-65%. We will follow closely for her chronic cytopenias andliver dysfunction. -- 10/29/2022: Regimen on hold for past 2 weeks due to cytopenias. Today with ANC 400, holding another week and will reduce dose of carfilzomib to 20mg/m2 IV weekly with cyclophosphamide 300-->240mg/m2 IV weekly, continue weekly dexamethasone. -- 11/26/2022: ANC 700, Platelets 40,000. Continue carfilzomib 20mg/m2 IV weekly with cyclophosphamide 300-->240-->180mg/m2 IV weekly, continue weekly dexamethasone. ROS Details: All systems reviewed & no additional complaints except as documented Subjective/ROS - Narrative: Constitutional: No Chills, No Diaphoresis, Stable Fatigue, No Fever, No Malaise, No Night Sweats, No Weakness, No Weight Gain, No Weight Loss Gastrointestinal: No Abdominal Pain, No Black Stool, No Bloating, No Bloody Stool, positive for constipation, No Diarrhea, No Dysphagia, No Hematemesis, No Nausea, No Postprandial Pain, No Rectal Bleeding, No Rectal Pain, No Vomiting, Other (chronic gastroesophageal reflux stable) --No jaundice or ascites but patient has longstanding nonalcoholic steatohepatitis with cirrhosis, previously followed by [facility]. Cardiovascular: No Chest Pain, No Edema, No Palpitations, No Syncope Genitourinary: No Discharge, No Dysuria, No Flank Pain, Frequency (chronic andunchanged), Resolved Hematuria, No Incontinence, No Nocturia, No Urgency, No Urinary Retention Musculoskeletal: + left shoulder and neck pain as per HPI (no thoracic cord compression). Improvement of prior bilateral hip/thigh pain since radiation; positive for intermittent lumbar back pain, NoChest Wall Tenderness, Improvement of prior Joint Pain, Muscle Stiffness, Myalgia (history of fibromyalgia), --unremarkable skeletal survey June 2019. 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 12/2020: F-18 PET/CT stable. 04/2021 F-18 PET/CT stable. Right hip pain mildly improved after palliative radiation. 04/30/2022 repeat Axumin F-18 PET/CT stablefrom 1 year ago. HEENT: + frontal headache and sinus tenderness/congestion. No Blurred Vision, No Discharge, No Ear Pain, No Epistaxis, No Rhinorrhea, No Sore Throat--patient was seen in emergency department November 2019 with persistent epistaxis. She was treated with nasal clip and packing and was advised to continue Afrin. No recurrent bleeding. 2 courses of antibiotics in Aug-Sep 2021 for recurrent sinusitis Respiratory: No Cough, No Hemoptysis, mild Shortness of Breath (chronic and unchanged due to COPD),No Sputum, No Wheezing--shortness of breath with daratumumab reaction dose 1 04/10/2020 (given a split dose over 2 days). No recurrent reaction since first dose. Neurological: No Dizziness, Stable Numbness/Tingling (reports long-standing bilateral foot numbness--unchanged since starting low-dose Velcade 04/10/2020), NoPre-existing Deficit (no history of stroke or seizure), intermittent headache Hematologic/Lymphatic: No significant bleeding thrombocytopenia from sequestration/myeloma disease,Bruises Easily, No Enlarged Lymph Nodes, Other (reports allergy to prior platelet transfusion) Endocrine: Excessive Sweating (hot flashes, postmenopausal) Flushing, No Intolerance to Cold, Intolerance to Heat Psychiatric: No Depressed Mood, No Insomnia Integumentary: No Jaundice, No Lesions, positive for diffuse rash on Pomalyst 3mg daily as per HPI.1 level dose reduction to 2 mg daily with only mild rash/pruritus. Due to cytopenias Pomalyst is reduced to 2 mg twice weekly on Mondays and . Stopped Pomalyst in Jul 2022--no recurrent rash. Allergic/Immunology: Previous pruritus with Pomalyst rash resolved off Pomalyst. PMFSH - History Attestation statement: The following information was validated with the patient. Source: Old Records Reviewed - Medical History Medical History: Medical History (Last Reviewed 11/26/22 @ 18:33 by Fabiola Marinelli MD) Aortic aneurysm COPD (chronic obstructive pulmonary disease) Diabetes Fibromyalgia GERD (gastroesophageal reflux disease) Hypertension Iron deficiency Multiple myeloma Neutropenia Smoldering multiple myeloma (SMM) Smoldering myeloma Temporary low platelet count - Surgical History Surgical History: Surgical History (Last Reviewed 11/26/22 @ 18:33 by Fabiola Marinelli MD) H/O: hysterectomy History of appendectomy History of cholecystectomy - Social History Smoking Status: Former smoker Tobacco Type: cigarettes Substance Use Type: None Social History Comments: [facility] Home Medications & Allergies Allergies erythromycin base [From E-Mycin] Allergy (Verified 11/26/22 10:48) Hives latex Allergy (Verified 11/26/22 10:48) Unknown Reaction moxifloxacin [From Avelox] Allergy (Verified 11/26/22 10:48) Hives Quinolones Allergy (Verified 11/26/22 10:48) Unknown Reaction tetracycline Allergy (Verified 11/26/22 10:48) Unknown Reaction Home Medications carvedilol 12.5 mg tablet 12.5 mg PO BID 11/20/17 [History Confirmed 11/26/22] duloxetine 60 mg capsule,delayed release 60 mg PO DAILY 11/20/17 [History Confirmed 11/26/22] insulin detemir U-100 100 unit/mL (3 mL) subcutaneous pen 26 units subcut QHS 11/20/17 [History Confirmed 11/26/22] oxycodone 10 mg tablet 10 mg PO TID PRN Pain 11/20/17 [History Confirmed 11/26/22] albuterol sulfate 90 mcg/actuation aerosol inhaler 2 puff inhalation Q6H PRN Shortness Of Breath 11/24/17 [History Confirmed 11/26/22] fluticasone 250 mcg-salmeterol 50 mcg/dose blistr powdr for inhalation (Advair Diskus) 1 inh inhalation Q12H PRN Shortness Of Breath 11/24/17 [History Confirmed 11/26/22] omeprazole magnesium 20 mg tablet,delayed release (Prilosec OTC) 40 mg PO DAILY 11/24/17 [History Confirmed 11/26/22] cholecalciferol (vitamin D3) 25 mcg (1,000 unit) capsule (Vitamin D3) 1,000 unitPO DAILY 04/13/19 [History Confirmed 11/26/22] metformin 500 mg tablet,extended release 24 hr 500 mg PO BID 03/05/20 [History Confirmed 11/26/22] ondansetron HCl 8 mg tablet (Zofran) 8 mg PO TID PRN Nausea #30 tabs 04/02/20 [Rx Confirmed 11/26/22] insulin NPH isoph U-100 human 100 unit/mL subcutaneous suspension (Novolin N NPHU-100 Insulin isophane) 20 unit subcut DIRECTED 05/21/20 [History Confirmed 11/26/22] semaglutide 0.25 mg or 0.5 mg (2 mg/1.5 mL) subcutaneous pen injector (Ozempic) 0.5 mg subcut QWEEK09/24/20 [History Confirmed 11/26/22] cyanocobalamin (vitamin B-12) 5,000 mcg capsule 5,000 mcg PO QWEEK 10/29/20 [History Confirmed 11/26/22] vitamin B12 0.5 mg-folic acid 1 mg tablet 1 tab PO DAILY 03/28/21 [History Confirmed 11/26/22] diazepam 5 mg tablet (Valium) 5 mg PO DIRECTED 1 day #2 tabs 07/17/21 [Rx Confirmed 11/26/22] gabapentin 300 mg tablet 600 mg PO TID 07/26/21 [History Confirmed 11/26/22] dexamethasone 4 mg tablet 20 mg PO ONCE 90 days #60 tabs 03/26/22 [Rx Confirmed 11/26/22] lactulose 20 gram/30 mL oral solution 20 g (30 mL) PO BID PRN Constipation #600 mL 04/09/22 [Rx Confirmed 11/26/22] ondansetron 8 mg disintegrating tablet 8 mg PO Q8H PRN Nausea #30 tabs 06/04/22 [Rx Confirmed 11/26/22] dexamethasone 4 mg tablet 40 mg PO ONCE #40 tabs 07/14/22 [Rx Confirmed 11/26/22] dexamethasone 4 mg tablet 40 mg PO ONCE #40 tabs 08/15/22 [Rx Confirmed 11/26/22] acyclovir 400 mg tablet 400 mg PO BID 90 days #180 tabs 09/24/22 [Rx Confirmed 11/26/22] potassium chloride 10 mEq capsule,extended release 10 meq PO DAILY #30 caps 11/18/22 [Rx Confirmed 11/26/22] amoxicillin 875 mg-potassium clavulanate 125 mg tablet 1 tab PO BID 14 days #28 tabs 11/26/22 [Rx] Objective - Height/Weight Height/Weight: Height 5 ft 2.99 in Weight 84.7 kg BSA for Today's Weight 1.92 - Vital Signs Vital Signs: 11/26/22 10:48 Temperature 97.8 F Pulse Rate [Left Brachial] 84 Respiratory Rate 16 Blood Pressure [Right Arm] 135/85 02 Sat by Pulse Oximetry 98 Oxygen Delivery Method Room Air - Pain Generalized Pain Intensity: 3 Bilateral Hip Pain Intensity: 5 Left Hip Pain Intensity: 4 Lower Back Pain Intensity: 7 Left Neck Pain Intensity: 4 Back Pain Intensity: 0 Right Thigh Pain Intensity: 3 Bilateral Leg Pain Intensity: 5 Generalized Head Pain Intensity: 4 Bilateral Shoulder Pain Intensity: 6 Left index finger Pain Intensity: 4 - Distress Screening Distress Screen Results: RN Distress Screening Start: 02/07/20 10:17 Freq: Status: Complete Protocol: Document 05/01/20 09:33 DB (Rec: 05/01/20 09:33 DB [id number]) Distress Screening Distress Score: 0 No worry/distress Distress Screening Total 0 RN Distress Screening Start: 07/26/21 12:37 Freq: Status: Active Protocol: Document 07/26/21 13:20 DB (Rec: 07/26/21 13:20 DB [id number]) Distress Screening Distress Score: 2 Physical Concerns Pain Distress Screening Total 2 Physical Exam Narrative: Patient is alert and oriented x3. HEAD / FACE: Normocephalic. No tenderness to palpation over scalp, no sinus tenderness to palpation. EYES: Pupils are equal and reactive to light. Conjunctivae and lids are benign in appearance. Ocular movement intact. EARS: Hearing grossly intact. NOSE / MOUTH / THROAT: + frontal/maxillary sinus tenderness. No oral thrush or aphthous ulcerations. Mild erythema to tongue as well, no swelling. NECK / THYROID: No cervical adenopathy on exam. Thyroid is symmetrical, withoutthyromegaly, masses or palpable nodules. RESPIRATORY: Normal inspection. Lungs clear to auscultation and percussion. No wheezing, rales, rhonchi or rubs. Normal effort. CARDIOVASCULAR: Regular rate and rhythm. No murmurs, gallops, or rubs. ABDOMEN: Bowel sounds normoactive. Soft, nontender and non-distended. No hepatosplenomegaly. No masses. INTEGUMENTARY: The skin is unremarkable. No suspicious lesions or rash. No bruising or petechiae noted. MUSCULOSKELETAL: Normal musculature, normal ROM upper and lower extremities, no crepitus. EXTREMITIES: Trace bilateral leg edema. No cyanosis or clubbing. NEUROLOGICAL: Alert and oriented. Cranial nerves intact. No gross motor or sensory deficits, patient ambulates unassisted. PSYCHIATRIC: No anxiety or evidence of depression. - ECOG Performance Status ECOG Score: 1 Results - Labs Labs: Diagram of Most Recent CBC and CMP 11/25/22 09:00 11/25/22 09:00 Labs - Last 7 Days 11/25/22 09:00: PHA Creatinine Clear 69.88, Sodium 139, Potassium 3.8, Chloride 106, Carbon Tdfykeg15.2, Anion Gap 10.6, BUN 9, Creatinine 0.41 L, Est GFR ( Amer) > 60, Est GFR (Non-Af Amer) > 60, Glucose 107 H, Calcium 8.7, Total Bilirubin 1.2, AST 28, ALT 26, Alkaline Phosphatase 92, Total Protein 4.9 L, Albumin 3.1 L, Globulin 1.8, Albumin/Globulin Ratio 1.7 11/25/22 09:00: Corrected WBC 1.3 L, Uncorrected WBC Count 1.3 L, RBC 3.07 L, Hgb 10.6 L, Hct 31.3 L, MCV 102.1 H, MCH 34.5 H, MCHC 33.8, RDW 17.5 H, Plt Count 40 L, MPV 8.8, Neut % (Auto) N/A, Lymph% (Auto) N/A, Hodgeman % (Auto) N/A, Eos % (Auto) N/A, Baso % (Auto) N/A, Nucleat RBC Rel Count N/A, Neut # (Auto) N/A, Lymph # (Auto) N/A, Hodgeman # (Auto) N/A, Eos # (Auto) N/A, Baso # (Auto) N/A,Lymphocytes % 37, Monocytes % 7, Eosinophils % 2, Segmented Neutrophils 54, Platelet Estimate Decreased, Giant Platelets 4, Plt Morphology Comment Normal, RBC Morphology N/A, Polychromasia Slight, Anisocytosis Slight, Tear Drop Cells Slight, Ovalocytes Slight Labs 07/04/2022 09/12/2022 11/13/2022 IgG 463 323 321 IgA 44 20 20 IgM 17 8 11 kappa 10.6 6.5 5.7 lambda 125.7 44.3 38.7 K/L ratio 0.08 0.15 0.15 - Impressions No imaging for review. - Other Results Results/Comments: Date of Service: 11/06/2203/24/731 [facility] echo transthoracic: penitentiary drug therapy Copies to: MD Phil Downey MD~ BSA: 1.9 m2 BP: 116/74 mmHg HR: 81 Reason For Study: penitentiary drug therapy History: No known cardaic history Interpretation Summary Ejection Fraction = 55-60%. The left ventricular size, thickness and function are normal The left ventricular wall motion is normal. A variety of Doppler measurements indicate impaired left ventricular relaxation, which is associated with grade I/IV or mild diastolic dysfunction. Trace aortic regurgitation. There is trace tricuspid regurgitation. The aortic root is 4.2 cm Compared to prior study, there is no significant change. Procedure/Quality: A two-dimensional transthoracic echocardiogram with color flow and Doppler was performed. Left Ventricle: The left ventricular size, thickness and function are normal. Ejection Fraction = 55-60%. A variety of Doppler measurements indicate impaired left ventricular relaxation, which is associated with grade I/IV or mild diastolic dysfunction. The left ventricular wall motion is normal. Left Atrium: The left atrium appears normal in size. Right Atrium: The right atrium appears normal in size. Right Ventricle: The right ventricular size, thickness and function are normal. Aortic Valve: The aortic valve is normal in structure and function. Trace aortic regurgitation. Mitral Valve: The mitral valve is normal in structure and function. There is no mitral regurgitation noted. Tricuspid Valve: The tricuspid valve is normal in structure and function. There is trace tricuspid regurgitation. Right ventricular systolic pressure is normal. Pulmonic Valve: The pulmonic valve is normal in structure and function. Trace pulmonic valvular regurgitation. Arteries: Mild aortic root dilatation. The aortic root is 4.2 cm. Pericardium/Pleura: No pericardial effusion seen. There is no pleural effusion. IVC/Hepatic Viens: The inferior vena cava is normal in size, with a normal collapsibility index. 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 She has high risk cytogenetics and I [facility] Her persistent thrombocytopenia made her ineligible for any clinical trials, and preventedher from receiving local pain procedures given her chronic low back pain. --05/2017 PET/CT images and reports performed for staging to exclude bone involvement with myeloma. 2 indeterminate areas of uptake thought to be degenerative arthritis vs early bone findings of myeloma (right parietooccipitalarea and upper sternum). She has remained asymptomatic [...] showed no lytic lesions and she has stableshoulder, hand, and right SI joint pain (although likely due to fibromyalgia. --Prior osseous survey 07/01/2019 showed osteopenia but no compression fractures or lytic lesions were identified. She had no significant change in myeloma labs(mild increase of urine M-spike, kappa/lambda ratio, and normal serum M- spike and quant immunoglobulins). Urine protein still undetectable, therefore will continue surveillance every 6 months with the same labs--no hypercalcemia, renaldysfunction (or proteinuria), anemia, or new bone symptoms. --Due to COVID- epidemic, her 6-month follow-up was performed by [...] 1) on 02/07/2020 to minimize exposures during COVID- epidemic. --The patient's myeloma labs (December 2019) do show normal quantitative immunoglobulins with IgA lambda monoclonal protein by immunofixation (serum IgA is 272). Her kappa/lambda ratio shows a predominance of free lambda 479 with elevated free kappa 23.6 and abnormal free kappa/lambda ratio of 0.05. Urine immunofixation also shows lambda type Bence-Murray proteins with urine M spike 43.1 but totalprotein 34.4, with no reported urine creatinine. --We deferred immunosuppressive chemotherapy for about 1 month due to control ofsymptoms after palliative radiation and concern of potential peak of COVID-19 inlate January early March. --She presented for follow-up 03/05/2020 and we discussed potential therapy options (with son available by phone). --I discussed her case with Dr. Piter Benavidez of malignant hematology, possibly presenting the patient in hematology tumor board at [facility]. --Infusion port placed 03/22/2020 at [facility] due to low platelets. No complications. --03/12/2020: Myeloma labs with no serum M-spike, + urine M spike 22.2mg/24h (14%). Immunofixation IgA lambda specificity. IgA normal 227, Serum kappa 20.6, serum lambda 516.7, Free kappa/lambda ratio0.04. Normal renal function and calcium. Lower ANC 600 and platelets 40,000 --04/10/2020: Started cycle 1 day 1 of weekly dexamethasone 20 mg IV (careful to watch blood sugars with diabetes and known hepatic dysfunction), decreased dose of bortezomib 0.7 mg/m? twice weekly for2 weeks on 1 week off (due to known liver disease and thrombocytopenia), and daratumumab 8mg/kg D1,D2 IV first week,then 16 mg/kg IV weekly and we may consider Revlimid as a 4th medication if needed (deferred for worsening neutropenia and thrombocytopenia--I am reluctant to add this therapy initially). --------- --01/21/2021: One year f/u F18 PET/CT with stable FDG avidity, monoclonal labs (SPEP, Quant Igs, kappa/lambda ratio) all pending. Stable CBC and CMP. Persistent pain left hand 2nd MCP joint--increaseduptake on PET/CT but no lesion on left hand xray from 11/2020. Sending for ortho evaluation. For nowcontinue once monthly Daratumumab. F/u with myeloma labs and exam in 2 months, sooner prn. --05/24/2021: Bone marrow biopsy does not show significant progression although poor prognosis mutation 1q with 13q on FISH. Hypocellular with recent worseningplatelets without bleeding--will recheck B12, folate, and ferritin. [...] sent for plain films of the hip femurand knee showing degenerative changes but no acute [...] progression although she still has slow rise inlambda light chain and platelet count remains in [...] check. She will sign Revlimid consent Thursday. Sheis in agreement with this plan. --09/20/2021: Started daratumumab loading doses weekly with Revlimid on 09/04/2021. Held therapy forANC 900 and platelet 42,000 with sinus infection, now resolved and resumed Revlimid 5mg daily on 09/17. Will continue therapy as prescribed with weekly CBC and hold Revlimid as needed for cytopenias.Evaluation for [facility]T therapy at [facility]. Send myeloma labs and skeletal survey [...] current cycle of Revlimid with change to pomalidomide4 mg daily, follow weekly CBCs after change in therapy and determine optimal dose based on symptomsand cytopenias. Patient is in agreement with this plan. Next follow-up with me in 1 month and we will defer next light chain analysis until 1 month after change in therapy. --02/19/2022: Continued rise in lambda light chains and worsening thrombocytopenia. Today we reviewed informed consent for adding pomalidomide 3 mg daily days 1 through 21 every 28 cycle 2 every otherweek daratumumab. We are dropping Revlimid due to [...] initial cycle was only given 03/05-03/13/2022. Now thatradha has complete resolution of symptoms she may resume pomalidomide at 1 dose level reduction 2 mg daily for days 1 through 21 of each 28-day cycle. We are also holding her daratumumab today due to declining her platelet count 41,000 without bleeding. Repeat kappa/lambda light chain ratio was increased 80 on 5 4but this was her first dose of pomalidomide. Plan anticipate arrival of pomalidomide within the next 1 to 2 weeks and she may resume daratumumab on day1 of therapy. Her next follow-up will be [...] for following myeloma show normal mild increase herfree lambda from 87 to 106, kappa/lambda ratio decreased 0.10-0.09. I will give her 1 more month ofpomalidomide with daratumumab and dexamethasone. The pomalidomide dose will be changed to 2 mg p.o.days 1 through 14, off days 15 through [...] bony lesions. Her kappa/lambda light chain ratio remainsrelatively stable since early March (0.09-0.11) with free lambda light chainsnow relatively stable (106-109). I advised continuing her current regimen and reevaluating with kappa/lambda light chain ratio in 2 months. Continue current dosing and close observation due to platelet count 48,000. No signs or symptomsof infection. Patient is in agreement with this plan. --07/10/2022: Mojgan has no new symptoms, but continued cytopenias with 2 weeks of pomalidomide helddue to recurrent neutropenia and persistent thrombocytopenia (40-50,000). Continued uptrending lambda light chains consistent with progression of myeloma. We did discuss bone marrow biopsy, but this would not policy change clerk, therefore we will give Pomalyst (now decreasedto 2mg Thursday and only) with last dose Daratumumab tomorrow. 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 --09/17/2022: Mojgan is here for cycle 3 of modified CYKLONE regimen. She continues to do ok with only mild fatigue, no other new complaints or s/s of infection. She is ok to treat per discussion with Dr. Marinelli despite low WBC, ANCand platelets. She will follow-up in 3 weeks [...] CBC, CMP, SPEP, VAHID, immunoglobulins, and FLC. Sheis in agreement with this plan and has no questions. --10/29/2022: Stable symptoms on current therapy. Recent viral infection with worsening cytopenias.She has been off weekly therapy for the last 2 weeks due to cytopenias, therefore we will hold 1 further week and if her blood counts meet parameters, she will have dose reduced Carfilzomib 27-->20mg/m2 IV weekly, Cyclophosphamide 300-->240mg/m2 IV weekly, and Dexamethasone 20mg IV/po weekly. She is overdue for echo which was ordered today and we will check results beforeresuming therapy. Next follow-up with me in 6 weeks or sooner as needed. [place]/lambda light chains were reviewed and doshow partial response over the last 3 months. We will continue to follow at least every 2 to 3 months while ontherapy. If she does not tolerate further therapy due to cytopenias we may consider Blenrep. Moderate complexity 35 minute followup visit. --11/26/2022: No new symptoms with ongoing response of lambda light chains but persistent cytopenias. In absence of new symptoms of infection or bleeding, we will continue therapy with further dose reduction of cyclophosphamide to 180mg/m2 IV weekly with stable dose Kyprolis 20mg/m2 IV weekly and Dex amethasone. Discussed with Dr. Benavidez at --he would support holding therapy and observation if persistent cytopenias and consider bone marrow biopsy. For now will continue monthly followup and myeloma labs every 1-2 months. She may be a candidate for bispecific antibody in the future if refractoryor intolerant of current therapy. Echo stable cardiac function EF 55-60%. She agrees with this plan. Covering with Augmentin 875mg bid x [address] for recurrent headaches given her neutropenia. Will call with results and ENT consult if air fluid level on sinus CT. Moderate complexity 35 minute followup visit. (2) Frontal sinusitis Qualifiers: Chronicity: unspecified Qualified Code(s): J32.1 - Chronic frontal sinusitis Sinus CT and Augmentin 875mg/m2 bid x 2 weeks due to headaches, neutropenia and h/o recurrent sinusitis. Will call with results and symptoms followup. (3) Chemotherapy-induced neutropenia ANC 700. Previously held therapy one week and resumed Kyprolis and cyclophosphamide at 20% DR as noted above. At 11/26/2022 followup, will maintaincurrent Kyprolis dose and dose reduce cyclophosphamide another 20% to 180mg/m2 weekly. 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 I previously reviewed her outpatient records from [facility], including review of notes, laboratories, and prior bone marrow biopsy 13 years ago. 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 Most recent platelet count is relatively stable at 54,000 but no clinical bleeding. She waspreviously referred to weight reduction clinic and may have slow improvement of steatohepatitis with lifestyle modification. Unless she has active bleeding or planned surgery, we will continue observation during treatment of active myelomato commence next month as noted above. --Agree with recommendation for EGD surveillance for varices (last was 09/2018--negative). This will be deferred during current COVID-19 epidemic. --Prior vitamin B12 and folic acid are normal, for known history of neuropathy. As noted above, I reviewed the negative M spike on serum protein electrophoresiswith immunofixation, but positive for Bence Murray protein on urine protein electrophoresis. Her Quantitative immunoglobulins IgG, IgA, and I gM were all within normal limits, however her serum kappa lambda light chain analysis showeda predominance of lambda light chains. --Previous labs for lupus anticoagulant with DRVVT, hexagonal phase phospholipid, anti-cardiolipin IgG and IgA, and beta 2 glycoprotein IgG and IgA were within normal limits. --Evaluated in ED November 2019 for epistaxis which resolved. Platelet count wasstable at 12/28/2019 follow-up. She continues surveillance with liver clinic at [facility] and I will continue to follow her every 6 months, sooner if newbleeding issues arise. --04/02/2020: We reviewed informed consent for Daratumumab/Velcade/Dexamethasone for active myeloma therapy. I requested prior liver biopsy results and notes from liver clinic at [facility]. Platelet count in 40,000 range but patient has had no active bleeding following infusion port placement 03/22/2020. --08/13/2020: Cycle 6 week 2 toxicity check with improved thrombocytopenia 79,000 range with no bleeding. We will continue current dosing with Velcade 0.7mg/m2 sq (now once weekly), dexamethasone 20 mg weekly, and full dose daratumumab with close follow-up of liver function and platelet counts. --09/24/2020, 01/21/2021, 03/28/2021: Platelets stable 60-70,000 with no new toxicities, started Daratumumab maintenance 10/02/2020. --04/24/2021: Platelets now down to 57,000 with rising lambda light chains. Will eval with repeat bone marrow biopsy due to nonsecretory myeloma. --05/24/2021: Bone marrow hypocellular without significant myeloma progression. Normal B12/folate stores, continue Daratumumab maintenance. --08/16/2021: Persistent thrombocytopenia in 50,000 range, consider change in therapy due to risinglambda light chains. Will check echo and review case with Reema at to discuss next line of therapy. --08/30/2021: Stable platelets--decision to resume weekly Daratumumab 16mg first 3 cycles and change to Revlimid 5mg daily 1-21 each 28 day cycle--titrate as tolerated --09/20/2021: Platelets have declined to 40-50,000 range without mucosal bleeding. Held Revlimid atplatelets 42,000 during sinus infection, resumed after one week off. Will follow weekly CBCs on Daratumumab/Revlimid. --12/18/2021, 01/22/2022: Platelets still in the 50,000 range without mucosal bleeding. Current dosing of daratumumab every 2 weeks and Revlimid 5 mg daily 2weeks on 2 weeks off--plan to change to pomalidomide 3 mg daily next cycle. -- 02/19/2022: Last week platelets were 48,000 and we held Revlimid. This week platelets 58,000 but continuing to hold Revlimid due to change to daratumumab 16mg/kg IV every 2 weeks with pomalidomide 3 mg daily days 1 through 21 every 28-day cycle -- 03/19/2022: Platelets were down to 41,000 and we held daratumumab as well as Pomalyst for rash asnoted above. Resume Pomalyst at 2 mg days 1 through 21 every 28 days. Continue daratumumab 16 mg/kgevery 2 weeks. -- 04/09/2022: Platelets down to 40,000. Okay to give daratumumab 16 mg/kg IV every 2 weeks but Pomalyst dose will be changed to 2 mg days 1 through 14 every 28 days. Follow-up 1 month. -- 05/07/2022: Platelets 48,000. Continue monthly daratumumab 16mg/kg IV with same Pomalyst dose 2mg daily D1-14 every 28 days. Extend next follow-up with kappa/lambda light chain ratio to 2 months. --07/10/2022: Platelets 53,000 with ANC now 600 (held Pomalyst one week for ANC 300). May have one dose Pomalyst today, then hold for change in therapy. Will have platelet transfusion as needed for change in therapy to Kyprolis/Cytoxan/Deamethasone. --08/20/2022: Platelets declined to mid 30,000 range about 4 weeks ago--now up to 56,000 and WBC 1600 and ANC 1000 on Kyprolis/Cytoxan/Deamethasone. No activebleeding. Continue current dosing and f/uin 3 weeks. --09/17/2022: Platelets at 43,000 without recent transfusion. WBC and ANC at 1.4and 600 respectively. Will continue with treatment. --10/15/2022: Platelets at 49,000. No s/s of bleeding. Ok for treatment. --10/29/2022: Platelets at 31,000 with ANC 400. Dose reductions recommended asnoted above. No active bleeding. Follow-up 6 weeks. --11/26/2022: Platelets at 40,000 with ANC 700. Dose reduction cyclophosphamideonly as noted above. No active bleeding. Follow-up 4 weeks. (5) Cancer-related pain Improved symptoms after palliative radiation to bilateral hips--one dose 02/07/2020. Will continue tofollow on myeloma chemotherapy. Extensive, but stable bone involvement on F-18 PET/CT 12/2020 and 04/2021. Recent increased leftneck and shoulder pain. Increased oxycodone dosing to three times daily, no unusual right hip pain is noted above--followed by palliative medicine. -Completed right hip radiation with persistent but improved pain--no new pain issues with follow-upvisit with radiation in early March 2022, follow-up as needed. Will continue to follow with palliative medicine. 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 She [facility]ref[facility] to attempt weight reduction through diet and exercise that may prevent further fatty infiltration that may further impairher liver function. [facility] hepatology discussed liver transplant but sheis likely no longer a candidate for this given active myeloma. We chose least hepatotoxic regimen for treatment of her active myeloma with 50% dose reduction of Velcade. Liver function remained stable since start of therapy 04/10/2020. --Requested prior liver biopsy and [facility] liver [facility] records. Dose reduction 20% Kyprolis due to KAPADIA with cirrhosis (normal bilirubin and transaminases). Stable LFTs on current Kyprolis/Cytoxan/Deamethasone therapy. (7) Encounter for chemotherapy management Initial Daratumumab maintenance tolerated well without significant toxicities. Bone marrow biopsy did not reveal indication for change in therapy. --09/04/2021: Repeat loading with weekly Daratumumab 16mg first 3 cycles and changed to Revlimid 5mgdaily 1-21 each 28 day cycle--02/19/2022 reviewed informed consent to change to pomalidomide next cycle. --03/19/2022. Pomalyst was stopped after 1 week of therapy on 03/13/2022. Daratumumab held 03/19/2022 due to platelet count 41,000. We resumed both medications on arrival of dose reduce Pomalyst 2 mg days 1 through 21 every 28- day cycle. -- 04/09/2022: Daratumumab is monthly maintenance. Mid July: last dose Pomalyst 2mg today with ANC 600. -- 07/30/2022: Changed chemo to Kyprolis/Cytoxan, normal baseline Echo. -- 10/29/2022: Dose reductions for cytopenias Carfilzomib 27-->20mg/m2 IV weekly, Cyclophosphamide 300--240mg/m2 IV weekly, and Dexamethasone 20mg IV/po weekly. Will continue every 3 week therapy until progression or intolerable toxicity. --11/26/2022: Platelets at 31,000 with ANC 400. Dose reductions Carfilzomib 27-->20mg/m2 IV weekly, Cyclophosphamide 300--240-->180mg/m2 IV weekly, and Dexamethasone 20mg IV/po weekly. - Chemo Plan Chemo Plan (Dose, Rate, Freq): Carfilzomib 27-->20mg/m2 IV weekly, Cyclophosphamide 300--240-->180mg/m2 IV weekly, and Dexamethasone 20mg IV/po weekly. Goal of Treatment: Palliative - Time with Patient Time Spent with Patient (Follow Up Visit): 35 minutes - Moderate complexity 35 min to review Echo, toxicities, and cytopenias on carfilzomib/cytoxan/dexamethasone--dose reductions as noted Coordination of Care & Counseling Time: Greater than 50% of time spent with patient was for coordination of care (as documented) and [id number] counseling of patient and/or family. Dictated By: Fabiola Marinelli MD DD/ [id number] Signed By: <Electronically signed by MD Fabiola Marinelli> 11/26/22 [address] [facility] Work Phone: [phone]) 527-796612-28-2022 Progress note Author Fabiola Marinelli [facility] October 29, 2022 1:17pmNote Date/TimeDecemb2021 11:59[facility] [place] [address] Hem/Onc Follow Up Note - OP Signed Patient: Mojgan Pérez MR#: [id number] : 1955 Acct:[id number] Age/Sex: 67 / F Type: REG RCR Copies to: MD Yinka Downey MD~ Subjective Date/Time of Service: Date of Service: 10/29/2022 Time of Service: 11:00 Chief Complaint: Patient is here today to go over labs. HPI: 10/29/2022: I asked Mojgan to return today due to cytopenias on labs and discussion of either dosereduction or changing therapy. She notes that over the last 2 weeks she has had cough, body aches, worsening fatigue, but no fever. She was diagnosed with a non-COVID viral syndrome. Her symptoms arestarting to get better but she has more significant cytopenias with absolute neutrophil count of only 400 with total white blood cell count 1000. In addition her platelet count is 31,000 she has not had any active bleeding issues. We were unable to contact her to tell her not to come in for chemo but I decided to see her today since she was last evaluated by nurse practitioner last 2 visits. Hermyeloma labs show relatively stable lambda light chains which appear to have responded since start oftherapy in July. She is due for her echocardiogram and due to her cytopenias we will hold therapy today and plan 1 level dose reductions of both cyclophosphamide (from 300 to 240 mg/m2 IV weekly)with Kyprolis dose reduction (from 27 to 20mg/m2 IV weekly). She has been off therapy past 2 weeks due to cytopenias. If she is unable to resume therapy we may consider an alternate therapy such as Blenrep. She is otherwise in agreement with current plan of care. Moderate complexity 35-minute visitfor review of complex labs and adjustment of chemotherapy regimen. 10/15/2022: Mojgan is here for follow-up for her multiple myeloma on modified CYKLONE therapy. Shecontinues to do well and remains active at home. She deniesshortness of breath, chest pain, nausea,vomiting, diarrhea or constipation. Sheis eating and drinking well. No fevers, chills, sweats, bleed ing or rash. She does note mild tongue soreness and on exam it appears she may be developing thrush, very mild currently on the tongue only. We will prescribe nystatin for this. Labs are reviewed andstable overall, ok for treatment. She will follow-upin 4wks with Dr. Marinelli with repeat labs and treatment. 09/17/2022: Mojgan is here for follow-up on modified CYKLONE therapy for her multiple myeloma. Shecontinues with fatigue, but otherwise no new complaints. She has no s/s of infection, no shortness of breath, chest pain, n/v/d or other concerns. In review of her labs, her WBC are 1.4, ANC 0.6 and platelets 43,000. Per Dr. Marinelli, given no s/s of infection and she otherwise feels well, she is okfor treatment. We discussed signs to report related to infection such as fever, chills, etc. and she will call with any concerns. We will follow-up in 3wks withrepeat labs. 08/20/2022: Mojgan is here for 3-week follow-up on modified CYKLONE therapy (cyclophosphamide 300 mg/m2 IV weekly, dexamethasone 20 mg IV weekly, and carfilzomib now 56 mg/m2 IV weekly). Baseline echocardiogram 07/18/2022 showed normal ejection fraction 60 to 65%. I discussed her case with Dr. Beanvidez who advised that despite her significant thrombocytopenia she should be treated with full dose cyclophosphamide/carfilzomib and may support with transfusions as needed. The patient's lowest plateletcounts were in the 30,000's after her first week of therapy but now is up to 56,000. She has not had any clinical bleeding. She also has persistent leukopenia 1900 today with absolute neutrophil count now 1000. At this point as long as she does not have any significant symptoms of therapy or signs of infection or active bleeding we willcontinue her current dosing. She otherwise notes mild fatiguebut no other toxicities. Prior skin rash on Pomalyst has resolved. She will follow-up in 3 weeks for toxicity check with nurse practitioner and we will order her restagingmyeloma labs with serum prote in electrophoresis with immunofixation, quantitative immunoglobulins, and kappa/lambda light chain ratio. She may return sooner if new issues arise. Moderate complexity follow-up over 30 minutes to address cytopenias on CYKLONE therapy. 07/10/2022: Mojgan is here for 2-month follow-up of myeloma labs. No changes in medical history and platelet count remains in the 40-50,000 range without bleeding. We held her Pomalyst (as well as daratumumab) this week due to absolute neutrophil count of 300 without any recent infections. She previously held it for 1 week due to neutropenia, took 1 tablet, then had to hold a second week due to neutropenia. We reviewed her kappa/lambda light chain ratio which continues to progress in the wrong direction (total lambda light chains now increased from 109 to 125.7 with ratio from 0.11 to 0.08). Her progressive cytopenias and worsening light chains likely reflects progression of myeloma. We could repeat her bone marrow biopsy but her most recent bone marrow biopsy on10/09/2021 showed hypercellular bone marrow (30%) with slight megakaryocytic and granulocytic hyperplasia and only 1.5% plasma cells (Lambda restricted by flow cytometry). This likely would not change her current management and I discussedher case with Dr. Benavidez of malignant hematology who recommended considering carfilzomib (Kyprolis) with cyclophosphamide. I will contact patient to coordinate baseline echocardiogram forKyprolis and likely she will require dosereductions for her underlying hepatic dysfunction and chronic cytopenias. AfterI reviewed dosing with Dr. Benavidez and pharmacy and review her echocardiogram, paulwill coordinate follow-up for change in therapy and chemotherapy consent. For now we will continue daratumumab with altered dose of Pomalyst to 2 mg twice weekly ( and Mondays) until change in therapy. I will not likely send dose reduction of Pomalyst due to planned change in therapy. Moderate complexity 35 minutes for coordination of care. 05/07/2022: Improved rash on 2 mg of Pomalyst, now mild pruritus. Platelet count is 48,000 without bleeding issues. Continues weekly prednisone. Daratumumab isnow monthly since early April. Repeat kappa/lambda light chain ratio slightly higher (106 to 109) But the upward trend is starting to flatten out. F-18 AxuminPET/CT shows no new lesions, relatively stable from 1 year ago. For now given her stable symptoms and pronounced cytopenias, we will continue her current dosing daratumumab/Pomalyst/dexamethasone. Next follow-up with me in 2 months. She will return sooner for issues arise. Moderate complexity visit over 35 minutes. 04/09/2022: Mojgan continues every 2-week durvalumab with Pomalyst now 2 mg daily (dose reduced due to diffuse rash). She is now day 14 of the cycle and isnoted to have platelet count of 40,000 (no associated mucosal bleeding, bright red blood per rectum, or hematuria). No recurrent rash on this dose. She continues her weekly prednisone. I recommended changing her schedule of Pomalyst to 2 mg daily for days 1 through 14, off days 15 through 28 cycle and continuing daratumumab. Her most recent immunoglobulins have shown a steady trend upward for lambda light chain and decrease of kappa/lambda light chain ratio, however since she is now stabilizing her dosing of daratumumab/Pomalyst/dexamethasone I recommend continuing her current dosing for1 more cycle with repeat kappa/lambda light chain ratio in another month. In addition I will set her up for F-18 Axumin PET/CT to compare to PET/CT from 1 year ago (her skeletal survey showed no lesions 6 months ago). She denies any current bone pain.She will proceed with daratumumab dose as previously orderedtoday. 03/19/2022: Mojgan is here for follow-up after adverse cutaneous reaction to her first cycle of Pomalyst. She noted that after starting her first dose of Pomalyst 3 mg daily on 03/05/2022 that about 1 week later on 03/13/2022 she had a diffuse rash all over that was pruritic with increased erythema. She did not have nausea, vomiting, constipation, diarrhea, dyspnea, or any other adverse reactions. She did have a decline of platelet count to 41,000 this week which may be due to her Pomalyst. She called the pharmacy and was instructed to discontinue Pomalyst on 03/13/2022. Her rash has mostly resolved with no furtherpruritus but she still has a few macular lesions over the legs. She has been using Benadryl and topical cortisone cream with improvement of the rash. Otherwise her laboratories are stable. She does have an increased kappa/lambda light chain ratio from 03/05/2022 but this was her first day of therapy. I recommended resuming Pomalyst at next dose level 2 mg daily as soon as new medic ation arrives for 3 weeks on 1 week off. If she has recurrent rash she will again stop and we will consider further dose adjustment. Due to her thrombocytopenia we will hold her daratumumab today andconsume with first day of Pomalyst next week. She may follow-up in about 3 to 4 weeks, possibly with virologist covering at that time. Patient expressed understanding. 02/19/2022: Mojgan is here for follow-up--no new symptoms but her platelet countdropped to 48,000 last week and we are again holding her Revlimid. She has not had any bleeding or infection recently, but she has had uptrending lambda light chains and we discussed changing her therapy from lenalidomide to pomalidomide and continuing her daratumumab which is currently every other week. Her only other concern is constipation which is likely related to her pain medications. ANC was 800 today. --Today we reviewed chemotherapy counseling for lenalidomide in combination withdaratumumab/dexamethasone (stopping Revlimid). Common toxicities were reviewed to include allergic reactions, myelosuppression, thrombosis, fatigue, nausea, vomiting, constipation, diarrhea, mouth sores, and risk of secondary malignancies. Other toxicities may include pneumonitis, neurologic, hepatic andrenal toxicities. The patient signed informed consent and will follow-up as directed. Planning a trip to [place] on March 06, therefore we will hold Revlimid until arrival of her pomalidomide, then have oral chemotherapy visit. We are starting pomalidomide at 3 mg daily days 1 through 21 every 28 days due to baseline liver dysfunction. Follow-up cycle 1 week 2. We will recheck her baseline myeloma labs on start day of pomalidomide with daratumumab. 01/22/2022: Mojgan has no new complaints. She was seen by Dr. Benavidez at for evaluation for transplant and CAR-T options but given her profound thrombocytopenia, neither of these options are felt tuyet optimal for her. She has had gradual worsening of her lambda light chains without any change of r enalfunction or hypercalcemia. Her chronic thrombocytopenia has remained in the 40-50,000 range which is lower than her prior baseline. I reviewed her options with Dr. Benavidez and it is difficult to assess best options due to her chronic thrombocytopenia but standard of care at this point would be tocontinue her daratumumab and transition from the lenalidomide to pomalidomide. We will follow closely with weekly CBCs to determine if thrombocytopenia worsens on thisregimen. I will defer changing her regimen for 1 month since she is starting a new cycle of lenalidomide and has had slow progression of her lambda light chains. She will return in 1 month and will discuss pomalidomide and signed inf ormed consent. Patient is in agreement with this plan. 12/18/2021: Mojgan is here for 3-month follow-up. She has not had any significant changes in medical history other than testing positive for coronavirus infection in early November 2021. She has not been immunized for coronavirus. She notes persistent fatigue but no bone pain. No other recent infections or bleeding episodes. She recently changed from weekly to now every 2 weeks daratumumab 16 mg/kg and remains on low-dose lenalidomide 5 mg daily for2 weeks on 1 week off due to prior thrombocytopenia worsening. October 2021 skeletal survey showed no osteolytic lesions suggestive of myeloma. Initially she had improvement of her platelets to 70-100,000 but today platelets are down to 54,000. She also had some improvement of leukopenia but this is again down to 2800 with ANC 1300 today. Urinerandom M spike is not observed, but she has had progressive increase of her lambda light chains from 30 in December 2020 to 60.2 in October 2021. [place] lambda ratio has also started to decline to 0.21 in October 2021. For now I'm continuing her daratumumab with Revlimid at current dosing, but I contacted Dr. Benavidez at [facility] for CAR-T celleligibility. If he has recommendations to change her therapy, I will let her know. Otherwise I will have her follow-up with me in 1 month (she will have repeat myeloma labs 1 week prior to visit). 09/20/2021: After telephone consultation with Dr. Benavidez at , we resumed repeat loading doses of weekly daratumumab 16mg/kg and changed to low dose lenalidomide 5mg daily. She has had 2 courses of antibiotics for sinus infection over the past month and was noted to have neutropenia with ANC 900, platelets 44,000 week 2 of Revlimid, therefore this was held for one week and resumed Thursday after ANC returned to 1000. Platelet counts have persisted at 40-50,000 range without active bleeding. Otherwise tolerating therapy well. Still improved hip pain and ambulation after recent course of palliative radiation therapy. For now we will continue Daratumumab with Revlimid and Dexamethasone as ordered with weekly CBC. Gradually increasing lambda light chains--pending evaluation at for CAR-T celltherapy eligibility (has not yetbeen contacted for appointment). 4 week f/u with me with CBC, CMP, and myeloma labs (follow quant immunoglobulins and [place]/Lambda light chain ratio with skeletal survey in 2 weeks so results available for appointment). 08/30/2021: Mojgan is here for 2-week follow-up for completion of her palliative radiation therapywith significant improvement of pain in her right hip and pelvis. We sent her for echocardiogram performed 08/23/2021 at [facility] [place] as baseline for possible Kyprolis therapy. This returned with ejection fraction 60% which is normal with grade 1 left ventricular diastolic dysfunction and 1+ tricuspid valve regurgitation and trace to 1+ aortic valve regurgitation.Otherwise unremarkable. I discussed her case with Dr. Benavidez of malignant hematology at [facility]. He advised against Kyprolis therapy given her underlying liver dysfunction and recommended repeating loading doses of daratumumab weekly as well as low-dose lenalidomide which we will start at 5 mg daily since she has chronic thrombocytopenia. We will send for CAR-T therapy as a possible therapeutic option. The patient agreed with changing daratumumab to weekly and we will haveher sign consent next week for change to low-dose lenalidomide therapy. Next follow-up with me will be in about 2 weeks for week 2 lenalidomide with daratumumab. 08/16/2021: One month followup, she recently completed palliative radiation therapy to right hip and pelvis. Platelet count still in 50,000 range with increased bruising but no bleeding. Still has some pain in right hip but slowlyimproving after radiation therapy. Slowly worsening lambda light chain --she is scheduled for ECHO next week. We discussed possibly changing therapy from Daratumumab, Velcade, Dexamethasone to Kyprolis, low dose lenalidomide, dexamethasone if adequate cardiac function. I will discuss this with Dr. Benavidez for dosing and determine if CAR-T therapy is another possible option (although we may be limited due to chronic thrombocytopenia and liver disease). Followup 2-3 weeks to review results and possible consent for change in therapy. 07/17/2021: 2-month follow-up on multiple myeloma. She reports that Thursday she developed severe painin the right leg that started proximal to the knee creating it to the hip. She had increased pain with weightbearing on the right and has been using a walker at home secondary to this. She did not feel a pop or shift in ambulation, but has been using her Percocet for pain control at home. In reviewing her laboratories platelet count remains in the 52,000 range and she is otherwisPe tolerating daratumumab well. I recommended sending for right hip, femur, and knee plain film imaging that did not show any fracture. She does have a gradually rising lambda light chain but no other significant changes in her labs. I reviewed her case with Dr. Cheng of orthopedic surgery who also reviewed her prior PET/CT showing uptake in this area. We will obtain a right hip MRI, keep her completely nonweightbearing on the right leg with walker for transfers and she has an urgent orthopedic follow-up following her MRI. I will follow-up with her in 1 month to review management and we will determine if she requires prophylactic kenton for stability of the hip based on herMRI. 05/24/2021: Here to followup 05/03/2021 bone marrow biopsy--noted to have decreased cellularity 25%, flow cytometry with 0.2% plasma cells and a 1.5% monoclonal B- cell population. FISH showed 13q and 1qabnormalities but normal cytogenetics. No myelodysplasia seen. I reassured her that recent thrombocytopenia is more likely related to splenic sequestration from liver disease and not worsening myeloma. For now continue current regimen. Will alsorecheck B12, folate, and iron profile with next labs--followup in 2 months with myeloma labs, sooner prn. 04/24/2021: 1 month followup to review PET/CT. Over the past 2 days, she notes episodes of sharp left sided neck pain over sternocleidomastoid muscle and mastoid area. No radiculopathy down left upperextremity. No new side effects of Daratumumab. F18 PET/CT shows largely unchanged diffuse uptake through multiplebony sites in axial and articular skeleton. Lambda light chains rising over past 2 month and decline of platelet count to 57,000 without bleeding. MRI of thoracic spine did not show significant thoracic canal stenosis. Due to worsening neck pain with extensive uptake on F18 PET/CT--we will send for cervical MRI. Palliative medicine has increased Percocet to tid. We will repeat bone marrow biopsy due to rising lambda light chain and falling platelet count to determine if progressionof myeloma noted. This will be scheduled in the next 1-2 weeks. 03/28/2021: 2 month followup for multiple myeloma. More recently notes neck andleft shoulder pain. Fatigue and constipation stable. Labs show stable anemia and thrombocytopenia. Serum M-spike now asymmetric gamma (no quantifiable spike). Slowly improving IgG to near normal. [place]/lambda light chain ratio normal with mildly increased lambda light chains. MRI of thoracic spine for evaluation of increasing left shoulder pain. For now we will continue current dosing of Daratumumab and recheck F18 PET/CT for response in late April 2021. 01/21/2021: Mojgan is accompanied by her daughter for 2 month followup--now Daratumumab maintenance. She notes persistent fatigue and recently added as needed laxatives to stool softener for management of constipation. Persistent left hand pain--correlates to an area of bone uptake on PET/CT. Overall F18 PET/CT appears stable with no new areas if FDG avidity (still extensive bone FDGuptake). We reviewed prior plain xrays of left hand from November--she agrees toevaluation by orthopedic surgery (determine if biopsy or steroid injections). M-spike and kappa/lambda light chains pending. CBC (platelets 60-70,000); CMP stable. Will followup in 2 months with exam and labs. 11/26/2020: Mojgan is accompanied by her daughter for 2 month followup--now Daratumumab maintenance. Stable leukopenia/low platelet 70,000. Notes 3 days of hematuria and mild dysuria. Sending UA and possible culture. Otherwise no new bone pain. Blood sugars stable. M-spike and kappa/lambda light chain ratio stable. Next f/u 2 months after one year f/u PET/CT to determine response to therapy. 09/24/2020: Mojgan presents (accompanied by her daughter) for cycle 8, week 2 followup [id number] mg/kg IV weekly, Dexamethasone 20mg weekly, and Velcade 0.7 mg/m? now sq once weekly for every 3-week cycle (21 days). She notes neuropathy symptoms are stable. Tolerating therapy well without fatigue. No bleeding and thrombocytopenia stable in 60-70,0000 range. On 10/02 she will be due for maintenance therapy with Daratumumab alone once per month. I will f/u with her in 2 months with myeloma labs, sooner as needed. Velcade and Dexamethasone will be stopped after 8 cycles. 08/13/2020: Mojgan is here for cycle 6, week 2 (day 14) daratumumab 16 mg/kg weekly, Velcade 0.7 mg/m? now sq once weekly for every 3-week cycle (21 days), and dexamethasone 20 mg weekly. No new symptoms--improving thrombocytopenia to 79,000 and improved leukopenia. 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 Still has improvement of M-spike, IgA normal and decreased lambda light chain and K/L ratio. We discussed that week 25 in Oct she will change to monthly daratumumab with weekly Velcade (1mg/m2) and Dexamethasone. Continue to follow every 6-8 weeks until maintenance schedule. 06/18/2020: Mojgan is here for cycle 3 week 3 (day 21) daratumumab 16 mg/kg weekly, Velcade 0.7 mg/m? now sq once weekly for every 5-week cycle (35 days), and dexamethasone 20 mg weekly. Tolerating well with stable leukopenia and thrombocytopenia. Mild increased symptoms of hand and foot neuropathy, but no limitation in activity. Now following with diabetes management clinic with variable glucosecontrol. We reviewed lower IgA (now M-spike IgG kappa after Daratumumab--previously IgA lambda). Lambda light chain has decreased from 516 to 41.3 to now 18.5 with normalization of K/L ratio. Continue followup myeloma labs in 6 weeks, visit in 8 weeks. 05/21/2020: Mojgan is here for cycle 2 (week 7 overall) daratumumab 16 mg/kg weekly, Velcade 0.7 mg/m? now sq once weekly for every 5-week cycle (35 days), and dexamethasone 20 mg weekly. Tolerating well with stable leukopenia and thrombocytopenia. No significant neuropathy. Noted to have improvement in lambda light chains. No further daratumumab infusion reactions. No infections,stable constipation, pain control improved. No other complaints. Continue monthly f/u with myeloma labs. --Diabetes management--added insulin on dexamethasone days. Hyperglycemia improving. 01/18/2020 (phone followup)--The patient's son was available by phone and her daughter was contactedin a separate phone call as patient presented unaccompanied due to COVID-19 precautions in our clinic during the current epidemic. Bone marrow biopsy results were reviewed as follows from procedure pe rformed 01/26/2020: --Bone marrow biopsy was suboptimal for evaluation. --Increased lambda light chain restricted monoclonal plasma cells (1.9% by flow cytometry, approximately 6% and aspirate count, but 50% by immunohistochemical stains [id number]). Sideroblastic iron present, negative for ring sideroblasts. Peripheral blood smear with mild red blood cell anisocytosis and polychromasia, leukopenia with absolute neutropenia (1000) and thrombocytopenia (54,000) consistent with prior baseline. Note: I discussed the results with Dr. Crook 01/26/2020. Preliminary findings were also discussed with Dr. Cummings 01/27/2020. Morphologic findings, immunohistochemical stains, flow cytometry, and ancillary studies may under represent the extent and severity of disease. The results of FISH myeloma panelwith prognostic markers and cytogenetic analysis are pending. --Given the patient's hip pain and presence of lytic lesions, she meets clinicalcriteria for activemyeloma. Given her hip pain and lytic lesions in weightbearing areas she was offered radiation therapy. She had a limited courseof hypofractionated palliative therapy to bilateral proximal femurs [address] Ahn. We discussed that given the COVID-19 epidemic and absence of othersignificant changes other than bony lesions (normal renal function, normal calcium, stable cytopenias), I would defer active therapy for myeloma for 4 to 6 weeks. Since she has significant history ofliver disease I will discuss her case with Dr. Piter Benavidez at [facility] malignant hematology for optimal regimen. The patient is not a transplant candidate given her nonalcoholic steatohepatitis and chronic thrombocytopenia but may be a candidate for either doublet therapy (Revlimid/dexamethasone) or triplet therapy with either Velcade/Revlimid/dexamethasone or daratumumab/Revlimid/dexamethasone. --02/03/2020: Mojgan presented unaccompanied for follow-up of bone marrow aspiration and biopsy performed by Dr. 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 The patient had been noting increased left hip pain over the past several months andplain films of the pelvis and bilateral femurs did show subtle lucencies in the bilateral proximal femurs corresponding to PET/CT findings but no other additional sclerotic lesions identified. No pathologic fractures were seen. --03/05/2020: Mojgan notes improvement of bilateral hip pain since radiation. No other changes in medical history in the past month--no infections, normal renal function, no hypercalcemia. Stable platelet counts without bleeding. Shewas given written literature regarding Dexamethasone, Velcade (thatwould be dose reduced to 0.7mg/m2 twice weekly), weekly Daratumumab and Revlimid, but I will defer decision of which regimen to use until discussion in malignant hematology tumor board. Also referring for infusion port placement prior to initiating therapy. Sign informed consent prior to initiating therapy. --Discussed with Dr. Benavidez who favors Daratumumab combination--will request prior liver biopsy and records from [facility] liver clinic. The patient and her son (by telephone) expressed understanding and will follow- up as directed in 2 weeks for consent and likely start of therapy. --04/02/2020: Mojgan presents after infusion port placement at [facility] by interventional radiology due to platelet count 40,000--she had increased bruising at site post procedure, but this has completely resolved. Her hip painis well controlled since completion of palliative radiation and no newareas of pain. She has previously reviewed information regarding Daratumumab (first dosesplit 8mg/kg IV D1,D2, then if well tolerated 16mg/kg IV weekly), Velcade at about 50% dose (for liver dysfunction) 0.7mg/m2 D1,D4,D8, D11, and [id number] IV weekly--repeat for every 3 week cycles 1st 3 cycles. She will take chemo class and likely start therapy within 2 weeks with toxicity visit in 3 weeks. Today we reviewed chemotherapy counseling for Daratumumab, Velcade, and Dexamethasone. Common toxicities were reviewed to include infusion reaction including rash/dyspnea/wheezing, myelosuppression, fatigue, nausea, vomiting, constipation, diarrhea, mouth sores, and alopecia. Other toxicities may in cludepneumonitis, neurologic, thromboembolism, hyperglycemia, hepatic and renal toxicities. The patient signed informed consent and will follow-up as directed. --04/19/2020: Mojgan is here for cycle 1 week 2 daratumumab 16 mg/kg weekly, Velcade 0.7 mg/m? twice weekly for first 2 weeks of every 3-week cycle, and dexamethasone 20 mg weekly. She did have an infusion reaction with first daratumumab with dyspnea and flushing but this improved after first dose and shehas not had recurrent infusion reactions. We have continued Velcade despite platelet counts in the 40,000 range without bleeding as we know that her baseline platelet counts remain in this range and she has not had any significant change from her baseline. Dexamethasone has caused hyperglycemia with blood sugars up to 400 and we are referring to diabetes management clinic. Otherwise she denies any significant nausea, emesis, fever, chills, night sweats, constipation, diarrhea, rash, mouthsores, or alopecia. She has not hadany change of baseline neuropathy. Liver function tests remain stable. She notes that her hip pain is well controlled since prior palliative radiation and she saw radiation oncology earlier this week with no new recommendations. I will send her myeloma labs including serum and urine protein electrophoresis, quantitative immunoglobulins, and serum kappa/lambda light chains in 2 weeks andfollow-up with her in 3 weeks. She may be seen sooner if new issues arise. This is a 66-year-old lady on chronic disability has a history of arthritis, diabetes mellitus, hypertension, COPD, GERD, and fibromyalgia who was previouslyfollow[facility] for chronic mild to moderate thrombocytopenia. She states that she was followed with Dr. Kumari prior to his senior care and was told that she had an elevated protein level as well as thrombocytopenia but never had clinical bleeding. She is 4 para4 without complicationsand was never told that she was thrombocytopenic while . She is had multiple prior surgicalprocedures without any clinical bleeding. She had been recommended for a pain procedure with Dr. Wilson but he declined to do the procedure because her platelet count was less than 100,000. For this reason she received 2 platelet transfusions, with little improvement of her platelet count and her second transfusion resulted in throat tightening due to allergy to platelets . She has never beentreated with steroids and has never been told that she has immune thrombocytopenia. She has mild leukopenia with relative neutropenia, absolute neutrophil count of 400-800 and mild lymphocytosis. Hemoglobin is normal. She has not had any bright red blood per rectum or epistaxis. She has no history ofbleeding within the family however does have a mother and sister diagnosed with colon cancer, a brother diagnosed with lung cancer, and another sister diagnosedwith breast cancer. She had prior pain in the right hand mainly at the first MCP joint with some associated swelling and right foot pain and was evaluated by podiatry. She was told that her blood tests were negative forgout. She had screening with MALLORY, CCP, and rheumatoid factor all of which were negative. She says that she previously saw Dr. Petersen for cirrhosis but did not know of any specific therapy. We reviewed these findings from her liver ultrasound ordered by Dr. Benavidez Summer 2016. Initial consultation with me March 16, 2017. --The patient has been followed by me for some time for diagnosis of smoldering myeloma with a prior bone marrow biopsy May 2017 showing 15% plasma cells but the patient remained asymptomatic without bone pain or other CRAB criteria for therapy. She is also noted to have an ascending aortic aneurysm and has chronicliver disease with cirrhosis secondary to nonalcoholic steatohepatitis. She haschronic thrombocytopenia without bleeding ranging from 50-100,000 this is felt to be due to sequestration from her nonalcoholic steatohepatitis. She was previously on a liver transplant list but was recently notified that she is no longer a candidate for liver transplant. She has had chronic pain from f ibromyalgia but noted increasing bilateral hip and upper thigh pain over the last 6 months. She also is followed for EGD/colonoscopy with last documented procedure 09/21/2018: 1. Normal EGD, 2. Mild sigmoid diverticulosis, 3. Internal hemorrhoids, grade 2, 4. Anal fissure with active bleeding cauterized by bipolar cautery Bone osseous survey in June 2019 showed osteopenia and degenerative changes but no lytic or blastic lesion. Patient had an F-18 PET scan 01/02/2020 which showed multiple areas of involvementof bones with increased SUV activity. She was contacted with these results by phone and I recommended bone marrow aspirate and biopsy for assessment and analysis. Her prior labs were reviewed. Her SPEP does not show anymonoclonal gammopathy. On VAHID there appears to be a trace of monoclonal gammopathy. Free light chain ratio is less than 100. There is no evidence of renal sufficiency. Patient is not anemic. She doeshave some abnormal areas on bone scan. - Summary of Therapies Summary of Therapies: 1. 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 2. She underwent a single dose of palliative radiation therapy to bilateral hips, receiving 800 cGyto right and left hip in 1 fraction in separate vaz (with a single isocenter). The treatments were given with AP/PA vaz [id number] MV photons and MLC blocks. 3. Deferred active therapy for myeloma 2 months given COVID-19 epidemic with increased risk of myelosuppression and viral transmission of contacts. --Follow-up 03/05/2020 I discussed her case with Dr. Piter Benavidez at malignant hematology. --Given her significant hepatic dysfunction, I presented her case at malignant hematology tumor board to discuss optimal therapy. 4. Cycle 1 day 1 04/10/2020: Dose reduced Velcade 0.7 mg/m? twice weekly (day 1,day 4, day 8, day 11)every 3 weeks with dexamethasone 20 mg weekly and daratumumab 16 mg/kg weekly of each 21-day cycle.After first week, Velcade decreased to 0.7mg sq weekly due to thrombocytopenia. --We will need to watch liver function, platelet count, and neuropathy closely on Velcade. 5. Cycle 9 day 1 10/02/2020: Daratumumab 16mg/kg once monthly maintenance therapy until progression. 6. 07/31/2021: Palliative radiation therapy to right supra chondral/soft tissuearea of hip which is PET positive. She received a dose of 3000 cGy in 10 fractions from 07/31/2021 to 08/15/2021 over 15 elapsed days 7. 08/30/2021: Right hip pain improved after radiation. Due to disease progression with persistent cytopenias, changed to repeat loading doses of daratumumab 16 mg/kg weekly for cycles 1 through 3 with Revlimid 5 mg daily for 3 weeks on 1 week off. Held Revlimid second week due to neutropenia with sinus infection, resumed 3 days ago (09/17/2021). Referred for CAR-T therapy evaluation. 8. 12/18/2021: Daratumumab is now 16 mg/kg every 2 weeks with Revlimid 5 mg daily for 2 weeks on 2 weeks off due to neutropenia and thrombocytopenia. Stillpending evaluation for CAR-T therapy. 9. 01/22/2022: Patient is not deemed a candidate for stem cell transplant or CAR- T therapy at this time. Discussed changing from current Revlimid to pomalidomide with continued daratumumab 16 mg/kg every 2 weeks. Plan change in therapy in 1 month. 10. 02/19/2022: Continue daratumumab 16 mg/kg IV every 2 weeks and changed to pomalidomide now 3 mg daily days 1 through 21 of each 28-day cycle (lower dose due to baseline liver dysfunction) -- 03/19/2022: Patient was noted to tolerate Pomalyst only 1 week (03/05- 03/13/2022)due to grade 3 rash. This resolved after stopping medication 1 week later. 1 dose level reduction Pomalyst to 2 mg daily days 1 through 21 of each 28-day cycle. Also holding daratumumab daily for platelet count of 41,000 and will resume at full dose with first dose of Pomalyst. -- 04/09/2022: Platelet 40,000 without bleeding. Will continue monthly Daratumumab with change of Pomalyst to 2mg D1-14 each 28 day cycle (off 2 weeks due to low platelets). Rising lambda light chains,unable to tolerate Pomalyst due to cytopenias, stopped mid 07/2022. 11. 07/18/2022: carfilzomib (dose 20mg/m2 day one then 27mg/m2 D8, D15) with cyclophosphamide 300mg IV weekly and weekly dexamethasone. Baseline echocardiogram EF 60-65%. We will follow closely for her chronic cytopenias andliver dysfunction. -- 10/29/2022: Regimen on hold for past 2 weeks due to cytopenias. Today with ANC 400, holding another week and will reduce dose of carfilzomib to 20mg/m2 IV weekly with cyclophosphamide 300-->240mg/m2 IV weekly, continue weekly dexamethasone. ROS Details: All systems reviewed & no additional complaints except as documented Subjective/ROS - Narrative: Constitutional: No Chills, No Diaphoresis, Stable Fatigue, No Fever, No Malaise, No Night Sweats, No Weakness, No Weight Gain, No Weight Loss Gastrointestinal: No Abdominal Pain, No Black Stool, No Bloating, No Bloody Stool, positive for constipation, No Diarrhea, No Dysphagia, No Hematemesis, No Nausea, No Postprandial Pain, No Rectal Bleeding, No Rectal Pain, No Vomiting, Other (chronic gastroesophageal reflux stable) --No jaundice or ascites but patient has longstanding nonalcoholic steatohepatitis with cirrhosis, previously followed by [facility] gastroenterology. Cardiovascular: No Chest Pain, No Edema, No Palpitations, No Syncope Genitourinary: No Discharge, No Dysuria, No Flank Pain, Frequency (chronic andunchanged), Resolved Hematuria, No Incontinence, No Nocturia, No Urgency, No Urinary Retention Musculoskeletal: + left shoulder and neck pain as per HPI (no thoracic cord compression). Improvement of prior bilateral hip/thigh pain since radiation; positive for intermittent lumbar back pain, NoChest Wall Tenderness, Improvement of prior Joint Pain, Muscle Stiffness, Myalgia (history of fibromyalgia), --unremarkable skeletal survey June 2019. 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 12/2020: F-18 PET/CT stable. 04/2021 F-18 PET/CT stable. Right hip pain mildly improved after palliative radiation. 04/30/2022 repeat Axumin F-18 PET/CT stablefrom 1 year ago. HEENT: No Blurred Vision, No Discharge, No Ear Pain, No Epistaxis, No Rhinorrhea, No Sore Throat--patient was seen in emergency department November 2019 with persistent epistaxis. She was treated withnasal clip and packing andwas advised to continue Afrin. No recurrent bleeding. 2 courses of antibio ticsin Aug-Sep 2021 for recurrent sinusitis Respiratory: No Cough, No Hemoptysis, mild Shortness of Breath (chronic and unchanged due to COPD),No Sputum, No Wheezing--shortness of breath with daratumumab reaction dose 1 04/10/2020 (given a split dose over 2 days). No recurrent reaction since first dose. Neurological: No Dizziness, Stable Numbness/Tingling (reports long-standing bilateral foot numbness--unchanged since starting low-dose Velcade 04/10/2020), NoPre-existing Deficit (no history of stroke or seizure), intermittent headache Hematologic/Lymphatic: No significant bleeding thrombocytopenia from sequestration/myeloma disease,Bruises Easily, No Enlarged Lymph Nodes, Other (reports allergy to prior platelet transfusion) Endocrine: Excessive Sweating (hot flashes, postmenopausal) Flushing, No Intolerance to Cold, Intolerance to Heat Psychiatric: No Depressed Mood, No Insomnia Integumentary: No Jaundice, No Lesions, positive for diffuse rash on Pomalyst 3mg daily as per HPI.1 level dose reduction to 2 mg daily with only mild rash/pruritus. Due to cytopenias Pomalyst is reduced to 2 mg twice weekly on Mondays and . Stopped Pomalyst in Jul 2022--no recurrent rash. Allergic/Immunology: Previous pruritus with Pomalyst rash resolved off Pomalyst. PMF - History Attestation statement: The following information was validated with the patient. Source: Old Records Reviewed - Medical History Medical History: Medical History (Last Reviewed 10/29/22 @ 13:01 by Fabiola Marinelli MD) Aortic aneurysm COPD (chronic obstructive pulmonary disease) Diabetes Fibromyalgia GERD (gastroesophageal reflux disease) Hypertension Iron deficiency Multiple myeloma Neutropenia Smoldering multiple myeloma (SMM) Smoldering myeloma Temporary low platelet count - Surgical History Surgical History: Surgical History (Last Reviewed 10/29/22 @ 13:01 by Fabiola Marinelli MD) H/O: hysterectomy History of appendectomy History of cholecystectomy - Social History Smoking Status: Former smoker Tobacco Type: cigarettes Substance Use Type: None Social History Comments: Lives with son a grandaughter Home Medications & Allergies Allergies erythromycin base [From E-Mycin] Allergy (Verified 10/29/22 11:00) Hives latex Allergy (Verified 10/29/22 11:00) Unknown Reaction moxifloxacin [From Avelox] Allergy (Verified 10/29/22 11:00) Hives Quinolones Allergy (Verified 10/29/22 11:00) Unknown Reaction tetracycline Allergy (Verified 10/29/22 11:00) Unknown Reaction Home Medications carvedilol 12.5 mg tablet 12.5 mg PO BID 11/20/17 [History Confirmed 10/29/22] duloxetine 60 mg capsule,delayed release 60 mg PO DAILY 11/20/17 [History Confirmed 10/29/22] insulin detemir U-100 100 unit/mL (3 mL) subcutaneous pen 26 units subcut QHS 11/20/17 [History Confirmed 10/29/22] oxycodone 10 mg tablet 10 mg PO TID PRN Pain 11/20/17 [History Confirmed 10/29/22] albuterol sulfate 90 mcg/actuation aerosol inhaler 2 puff inhalation Q6H PRN Shortness Of Breath 11/24/17 [History Confirmed 10/29/22] fluticasone 250 mcg-salmeterol 50 mcg/dose blistr powdr for inhalation (Advair Diskus) 1 inh inhalation Q12H PRN Shortness Of Breath 11/24/17 [History Confirmed 10/29/22] omeprazole magnesium 20 mg tablet,delayed release (Prilosec OTC) 40 mg PO DAILY 11/24/17 [History Confirmed 10/29/22] cholecalciferol (vitamin D3) 25 mcg (1,000 unit) capsule (Vitamin D3) 1,000 unitPO DAILY 04/13/19 [History Confirmed 10/29/22] metformin 500 mg tablet,extended release 24 hr 500 mg PO BID 03/05/20 [History Confirmed 10/29/22] ondansetron HCl 8 mg tablet (Zofran) 8 mg PO TID PRN Nausea #30 tabs 04/02/20 [Rx Confirmed 10/29/22] insulin NPH isoph U-100 human 100 unit/mL subcutaneous suspension (Novolin N NPHU-100 Insulin isophane) 20 unit subcut DIRECTED 05/21/20 [History Confirmed 10/29/22] nystatin 100,000 unit/mL oral suspension 100,000 unit buccal DAILY oral pain 90 days #500 mL 06/18/20 [Rx Confirmed 10/29/22] semaglutide 0.25 mg or 0.5 mg (2 mg/1.5 mL) subcutaneous pen injector (Ozempic) 0.5 mg subcut QWEEK09/24/20 [History Confirmed 10/29/22] cyanocobalamin (vitamin B-12) 5,000 mcg capsule 5,000 mcg PO QWEEK 10/29/20 [History Confirmed 10/29/22] vitamin B12 0.5 mg-folic acid 1 mg tablet 1 tab PO DAILY 03/28/21 [History Confirmed 10/29/22] diazepam 5 mg tablet (Valium) 5 mg PO DIRECTED 1 day #2 tabs 07/17/21 [Rx Confirmed 10/29/22] gabapentin 300 mg tablet 600 mg PO TID 07/26/21 [History Confirmed 10/29/22] dexamethasone 4 mg tablet 20 mg PO ONCE 90 days #60 tabs 03/26/22 [Rx Confirmed 10/29/22] lactulose 20 gram/30 mL oral solution 20 g (30 mL) PO BID PRN Constipation #600 mL 04/09/22 [Rx Confirmed 10/29/22] ondansetron 8 mg disintegrating tablet 8 mg PO Q8H PRN Nausea #30 tabs 06/04/22 [Rx Confirmed 10/29/22] dexamethasone 4 mg tablet 40 mg PO ONCE #40 tabs 07/14/22 [Rx Confirmed 10/29/22] dexamethasone 4 mg tablet 40 mg PO ONCE #40 tabs 08/15/22 [Rx Confirmed 10/29/22] potassium chloride 10 mEq capsule,extended release 10 meq PO DAILY #30 caps 08/18/22 [Rx Confirmed 10/29/22] acyclovir 400 mg tablet 400 mg PO BID 90 days #180 tabs 09/24/22 [Rx Confirmed 10/29/22] nystatin 100,000 unit/mL oral suspension 4 ml PO QID #200 mL 10/15/22 [Rx Confirmed 10/29/22] Objective - Height/Weight Height/Weight: Height 5 ft 2.99 in Weight 83.3 kg BSA for Today's Weight 1.93 - Vital Signs Vital Signs: 10/29/22 11:01 Temperature 97.8 F Pulse Rate [Left Brachial] 83 Respiratory Rate 16 Blood Pressure [Right Arm] 142/86 H 02 Sat by Pulse Oximetry 97 Oxygen Delivery Method Room Air - Pain Generalized Pain Intensity: 3 Bilateral Hip Pain Intensity: 5 Left Hip Pain Intensity: 4 Lower Back Pain Intensity: 7 Left Neck Pain Intensity: 4 Back Pain Intensity: 0 Right Thigh Pain Intensity: 3 Bilateral Leg Pain Intensity: 5 Generalized Head Pain Intensity: 4 Bilateral Shoulder Pain Intensity: 6 Left index finger Pain Intensity: 4 - Distress Screening Distress Screen Results: RN Distress Screening Start: 02/07/20 10:17 Freq: Status: Complete Protocol: Document 05/01/20 09:33 DB (Rec: 05/01/20 09:33 DB [id number]) Distress Screening Distress Score: 0 No worry/distress Distress Screening Total 0 RN Distress Screening Start: 07/26/21 12:37 Freq: Status: Active Protocol: Document 07/26/21 13:20 DB (Rec: 07/26/21 13:20 DB [id number]) Distress Screening Distress Score: 2 Physical Concerns Pain Distress Screening Total 2 Physical Exam Narrative: Patient is alert and oriented x3. HEAD / FACE: Normocephalic. No tenderness to palpation over scalp, no sinus tenderness to palpation. EYES: Pupils are equal and reactive to light. Conjunctivae and lids are benign in appearance. Ocular movement intact. EARS: Hearing grossly intact. NOSE / MOUTH / THROAT: No oral thrush or aphthous ulcerations. Mild erythema to tongue as well, no swelling. NECK / THYROID: No cervical adenopathy on exam. Thyroid is symmetrical, withoutthyromegaly, masses or palpable nodules. RESPIRATORY: Normal inspection. Lungs clear to auscultation and percussion. No wheezing, rales, rhonchi or rubs. Normal effort. CARDIOVASCULAR: Regular rate and rhythm. No murmurs, gallops, or rubs. ABDOMEN: Bowel sounds normoactive. Soft, nontender and non-distended. No hepatosplenomegaly. No masses. INTEGUMENTARY: The skin is unremarkable. No suspicious lesions or rash. No bruising or petechiae noted. MUSCULOSKELETAL: Normal musculature, normal ROM upper and lower extremities, no crepitus. EXTREMITIES: Trace bilateral leg edema. No cyanosis or clubbing. NEUROLOGICAL: Alert and oriented. Cranial nerves intact. No gross motor or sensory deficits, patient ambulates unassisted. PSYCHIATRIC: No anxiety or evidence of depression. - ECOG Performance Status ECOG Score: 1 Results - Labs Labs: Diagram of Most Recent CBC and CMP 10/28/22 12:38 10/14/22 09:35 Labs - Last 7 Days 10/28/22 12:38: Corrected WBC 1.0 L, Uncorrected WBC Count 1.0 L, RBC 2.93 L, Hgb 10.3 L, Hct 30.1 L, MCV 102.8 H, MCH 35.2 H, MCHC 34.2, RDW 16.1 H, Plt Count31 L*, MPV 9.4, Neut % (Auto) 42.1, Lymph % (Auto) 42.1, Hodgeman % (Auto) 10.9, Eos% (Auto) 4.6, Baso % (Auto) 0.3, Nucleat RBC Rel Count 0.4, Neut # (Auto) 0.4 L,Lymph # (Auto) 0.4 L, Hodgeman # (Auto) 0.1, Eos # (Auto) 0.0, Baso # (Auto) 0.0, Platelet Estimate Decreased, Large Platelets Slight, Plt Morphology Comment N/A,RBC Morphology N/A, Macrocytosis Slight, Tear Drop Cells Slight - Impressions No new imaging for review. 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 She has high risk cytogenetics and I [facility] Her persistent thrombocytopenia made her ineligible for any clinical trials, and preventedher from receiving local pain procedures given her chronic low back pain. --05/2017 PET/CT images and reports performed for staging to exclude bone involvement with myeloma. 2 indeterminate areas of uptake thought to be degenerative arthritis vs early bone findings of myeloma (right parietooccipitalarea and upper sternum). She has remained asymptomatic [...] showed no lytic lesions and she has stableshoulder, hand, and right SI joint pain (although likely due to fibromyalgia. --Prior osseous survey 07/01/2019 showed osteopenia but no compression fractures or lytic lesions were identified. She had no significant change in myeloma labs(mild increase of urine M-spike, kappa/lambda ratio, and normal serum M- spike and quant immunoglobulins). Urine protein still undetectable, therefore will continue surveillance every 6 months with the same labs--no hypercalcemia, renaldysfunction (or proteinuria), anemia, or new bone symptoms. [...] proteins with urine M spike 43.1 but totalprotein 34.4, with no reported urine creatinine. --We deferred immunosuppressive chemotherapy for about 1 month due to control ofsymptoms after palliative radiation and concern of potential peak of COVID-19 inlate January early March. --She presented for follow-up 03/05/2020 and we discussed potential therapy options (with son available by phone). --I discussed her case with Dr. Piter Benavidez of malignant hematology, possibly presenting the patient in hematology tumor board at [facility]. --Infusion port placed 03/22/2020 at [facility] due to low platelets. No complications. --03/12/2020: Myeloma labs with no serum M-spike, + urine M spike 22.2mg/24h (14%). Immunofixation IgA lambda specificity. IgA normal 227, Serum kappa 20.6, serum lambda 516.7, Free kappa/lambda ratio0.04. Normal renal function and calcium. Lower ANC 600 and platelets 40,000 --04/10/2020: Started cycle 1 day 1 of weekly dexamethasone 20 mg IV (careful to watch blood sugars with diabetes and known hepatic dysfunction), decreased dose of bortezomib 0.7 mg/m? twice weekly for2 weeks on 1 week off (due to known liver disease and thrombocytopenia), and daratumumab 8mg/kg D1,D2 IV first week,then 16 mg/kg IV weekly and we may consider Revlimid as a 4th medication if needed (deferred for worsening neutropenia and thrombocytopenia--I am reluctant to add this therapy initially). --------- --01/21/2021: One year f/u F18 PET/CT with stable FDG avidity, monoclonal labs (SPEP, Quant Igs, kappa/lambda ratio) all pending. Stable CBC and CMP. Persistent pain left hand 2nd MCP joint--increaseduptake on PET/CT but no lesion on left hand xray from 11/2020. Sending for ortho evaluation. For nowcontinue once monthly Daratumumab. F/u with myeloma labs and exam in 2 months, sooner prn. --05/24/2021: Bone marrow biopsy does not show significant progression although poor prognosis mutation 1q with 13q on FISH. Hypocellular with recent worseningplatelets without bleeding--will recheck B12, folate, and ferritin. [...] sent for plain films of the hip femurand knee showing degenerative changes but no acute [...] progression although she still has slow rise inlambda light chain and platelet count remains in [...] check. She will sign Revlimid consent Thursday. Sheis in agreement with this plan. --09/20/2021: Started daratumumab loading doses weekly with Revlimid on 09/04/2021. Held therapy forANC 900 and platelet 42,000 with sinus infection, now resolved and resumed Revlimid 5mg daily on 09/17. Will continue therapy as prescribed with weekly CBC and hold Revlimid as needed for cytopenias.Evaluation for [facility]T [facility] at [facility]. Send myeloma labs and skeletal survey [...] current cycle of Revlimid with change to pomalidomide4 mg daily, follow weekly CBCs after change in therapy and determine optimal dose based on symptomsand cytopenias. Patient is in agreement with this plan. Next follow-up with me in 1 month and we will defer next light chain analysis until 1 month after change in therapy. --02/19/2022: Continued rise in lambda light chains and worsening thrombocytopenia. Today we reviewed informed consent for adding pomalidomide 3 mg daily days 1 through 21 every 28 cycle 2 every otherweek daratumumab. We are dropping Revlimid due to [...] initial cycle was only given 03/05-03/13/2022. Now thatradha has complete resolution of symptoms she may resume pomalidomide at 1 dose level reduction 2 mg daily for days 1 through 21 of each 28-day cycle. We are also holding her daratumumab today due to declining her platelet count 41,000 without bleeding. Repeat kappa/lambda light chain ratio was increased 80 on 5 4but this was her first dose of pomalidomide. Plan anticipate arrival of pomalidomide within the next 1 to 2 weeks and she may resume daratumumab on day1 of therapy. Her next follow-up will be [...] for following myeloma show normal mild increase herfree lambda from 87 to 106, kappa/lambda ratio decreased 0.10-0.09. I will give her 1 more month ofpomalidomide with daratumumab and dexamethasone. The pomalidomide dose will be changed to 2 mg p.o.days 1 through 14, off days 15 through [...] ratio remains relatively stable since early March (0.09-0.11) with free lambda light chains now relatively stable (106-109). I advised continuing her current regimen and reevaluating with kappa/lambda light chain ratio in 2 months. Continue current dosing and close observation due to platelet count 48,000. No signs or symptomsof infection. Patient is in agreement with this plan. --07/10/2022: Mojgan has no new symptoms, but continued cytopenias with 2 weeks of pomalidomide helddue to recurrent neutropenia and persistent thrombocytopenia (40-50,000). Continued uptrending lambda light chains consistent with progression of myeloma. We did discuss bone marrow biopsy, but this would not policy change clerk, therefore we will give Pomalyst (now decreasedto 2mg Thursday and only) with last dose Daratumumab tomorrow. 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 --09/17/2022: Mojgan is here for cycle 3 of modified CYKLONE regimen. She continues to do ok with only mild fatigue, no other new complaints or s/s of infection. She is ok to treat per discussion with Dr. Marinelli despite low WBC, ANCand platelets. She will follow-up in 3 weeks [...] CBC, CMP, SPEP, VAHID, immunoglobulins, and FLC. Sheis in agreement with this plan and has no questions. --10/29/2022: Stable symptoms on current therapy. Recent viral infection with worsening cytopenias.She has been off weekly therapy for the last 2 weeks due to cytopenias, therefore we will hold 1 further week and if her blood counts meet parameters, she will have dose reduced Carfilzomib 27-->20mg/m2 IV weekly, Cyclophosphamide 300-->240mg/m2 IV weekly, and Dexamethasone 20mg IV/po weekly. She is overdue for echo which was ordered today and we will check results beforeresuming therapy. Next follow-up with me in 6 weeks or sooner as needed. [place]/lambda light chains were reviewed and doshow partial response over the last 3months. We will continue to follow at least every 2 to 3 months while on therapy. If she does not tolerate further therapy due to cytopenias we may consider Blenrep. Moderate complexity 35 minute followup visit. (2) Chemotherapy-induced neutropenia ANC 400. Hold therapy one week and resume Kyprolis and cyclophosphamide at 20% DR as noted above. 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 I previously reviewed her outpatient records from [facility] [place], including review of notes, laboratories, and prior bone marrow biopsy 13 years ago. 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 Most recent platelet count is relatively stable at 54,000 but no clinical bleeding. She waspreviously referred to weight reduction clinic and may have slow improvement of steatohepatitis with lifestyle modification. Unless she has active bleeding or planned surgery, we will continue observation during treatment of active myelomato commence next month as noted above. --Agree with recommendation for EGD surveillance for varices (last was 09/2018--negative). This will be deferred during current COVID-19 epidemic. --Prior vitamin B12 and folic acid are normal, for known history of neuropathy. As noted above, I reviewed the negative M spike on serum protein electrophoresiswith immunofixation, but positive for Bence Murray protein on urine protein electrophoresis. Her Quantitative immunoglobulins IgG, IgA, and I gM were all within normal limits, however her serum kappa lambda light chain analysis showeda predominance of lambda light chains. --Previous labs for lupus anticoagulant with DRVVT, hexagonal phase phospholipid, anti-cardiolipin IgG and IgA, and beta 2 glycoprotein IgG and IgA were within normal limits. --Evaluated in ED November 2019 for epistaxis which resolved. Platelet count wasstable at 12/28/2019 follow-up. She continues surveillance with liver clinic at [facility] and I will continue to follow her every 6 months, sooner if newbleeding issues arise. --04/02/2020: We reviewed informed consent for Daratumumab/Velcade/Dexamethasone for active myeloma therapy. I requested prior liver biopsy results and notes from liver clinic at [facility]. Platelet count in 40,000 range but patient has had no active bleeding following infusion port placement 03/22/2020. --08/13/2020: Cycle 6 week 2 toxicity check with improved thrombocytopenia 79,000 range with no bleeding. We will continue current dosing with Velcade 0.7mg/m2 sq (now once weekly), dexamethasone 20 mg weekly, and full dose daratumumab with close follow-up of liver function and platelet counts. --09/24/2020, 01/21/2021, 03/28/2021: Platelets stable 60-70,000 with no new toxicities, started Daratumumab maintenance 10/02/2020. --04/24/2021: Platelets now down to 57,000 with rising lambda light chains. Will eval with repeat bone marrow biopsy due to nonsecretory myeloma. --05/24/2021: Bone marrow hypocellular without significant myeloma progression. Normal B12/folate stores, continue Daratumumab maintenance. --08/16/2021: Persistent thrombocytopenia in 50,000 range, consider change in therapy due to risinglambda light chains. Will check echo and review case withDr. Benavidez at to discuss next line of therapy. --08/30/2021: Stable platelets--decision to resume weekly Daratumumab 16mg first 3 cycles and change to Revlimid 5mg daily 1-21 each 28 day cycle--titrate as tolerated --09/20/2021: Platelets have declined to 40-50,000 range without mucosal bleeding. Held Revlimid atplatelets 42,000 during sinus infection, resumed after one week off. Will follow weekly CBCs on Daratumumab/Revlimid. --12/18/2021, 01/22/2022: Platelets still in the 50,000 range without mucosal bleeding. Current dosing of daratumumab every 2 weeks and Revlimid 5 mg daily 2weeks on 2 weeks off--plan to change to pomalidomide 3 mg daily next cycle. -- 02/19/2022: Last week platelets were 48,000 and we held Revlimid. This week platelets 58,000 but continuing to hold Revlimid due to change to daratumumab 16mg/kg IV every 2 weeks with pomalidomide 3 mg daily days 1 through 21 every 28-day cycle -- 03/19/2022: Platelets were down to 41,000 and we held daratumumab as well as Pomalyst for rash asnoted above. Resume Pomalyst at 2 mg days 1 through 21 every 28 days. Continue daratumumab 16 mg/kgevery 2 weeks. -- 04/09/2022: Platelets down to 40,000. Okay to give daratumumab 16 mg/kg IV every 2 weeks but Pomalyst dose will be changed to 2 mg days 1 through 14 every 28 days. Follow-up 1 month. -- 05/07/2022: Platelets 48,000. Continue monthly daratumumab 16mg/kg IV with same Pomalyst dose 2mg daily D1-14 every 28 days. Extend next follow-up with kappa/lambda light chain ratio to 2 months. --07/10/2022: Platelets 53,000 with ANC now 600 (held Pomalyst one week for ANC 300). May have one dose Pomalyst today, then hold for change in therapy. Will have platelet transfusion as needed for change in therapy to Kyprolis/Cytoxan/Deamethasone. --08/20/2022: Platelets declined to mid 30,000 range about 4 weeks ago--now up to 56,000 and WBC 1600 and ANC 1000 on Kyprolis/Cytoxan/Deamethasone. No activebleeding. Continue current dosing and f/uin 3 weeks. --09/17/2022: Platelets at 43,000 without recent transfusion. WBC and ANC at 1.4and 600 respectively. Will continue with treatment. --10/15/2022: Platelets at 49,000. No s/s of bleeding. Ok for treatment. --10/29/2022: Platelets at 31,000 with ANC 400. Dose reductions recommended asnoted above. No active bleeding. Follow-up 6 weeks. (4) Cancer-related pain Improved symptoms after palliative radiation to bilateral hips--one dose 02/07/2020. Will continue tofollow on myeloma chemotherapy. Extensive, but stable bone involvement on F-18 PET/CT 12/2020 and 04/2021. Recent increased left neck and shoulder pain. Increased oxycodone dosing to three times daily,no unusual right hip pain is noted above--followed by palliative medicine. -Completed right hip radiation with persistent but improved pain--no new pain issues with follow-upvisit with radiation in early March 2022, follow-up as needed. Will continue to follow with palliative medicine. 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 She wasreferred to [facility] to attempt weight reduction through diet and exercise that may prevent further fatty infiltration that may further impairher liver function. [facility] hepatology discussed liver transplant but sheis likely no longer a candidate for this given active myeloma. We chose least hepatotoxic regimen for treatment of her active myeloma with 50% dose reduction of Velcade. Liver function remained stable since start of therapy 04/10/2020. --Requested prior liver biopsy and [facility] liver clinic records. Dose reduction 20% Kyprolis due to KAPADIA with cirrhosis (normal bilirubin and transaminases). Stable LFTs on current Kyprolis/Cytoxan/Deamethasone therapy. (6) Encounter for chemotherapy management Initial Daratumumab maintenance tolerated well without significant toxicities. Bone marrow biopsy did not reveal indication for change in therapy. --09/04/2021: Repeat loading with weekly Daratumumab 16mg first 3 cycles and changed to Revlimid 5mgdaily 1-21 each 28 day cycle--02/19/2022 reviewed informed consent to change to pomalidomide next cycle. --03/19/2022. Pomalyst was stopped after 1 week of therapy on 03/13/2022. Daratumumab held 03/19/2022 due to platelet count 41,000. We resumed both medications on arrival of dose reduce Pomalyst 2 mg days 1 through 21 every 28- day cycle. -- 04/09/2022: Daratumumab is monthly maintenance. Mid July: last dose Pomalyst 2mg today with ANC 600. -- 07/30/2022: Changed chemo to Kyprolis/Cytoxan, normal baseline Echo. -- 10/29/2022: Dose reductions for cytopenias Carfilzomib 27-->20mg/m2 IV weekly, Cyclophosphamide 300--240mg/m2 IV weekly, and Dexamethasone 20mg IV/po weekly. Will continue every 3 week therapy until progression or intolerable toxicity. (7) History of 2019 novel coronavirus disease (COVID-19) Patient had coronavirus infection encouraged her to complete vaccinations with booster. When she iscompleted all coronavirus vaccination with booster, she may be eligible for antivirals Evasheld (tixagevimab IM and cilgavimab IM) for passive immunity of coronavirus 19 infection. - Chemo Plan Chemo Plan (Dose, Rate, Freq): Palliative radiation to 02/07/2020, deferred active therapy for myeloma for 8 weeks due to current COVID-19 epidemic. Discussed at [facility] early May to determine optimal regimen given her comorbidities. --04/10/2020: cycle 1, day 1 weekly dexamethasone 20 mg IV (careful to watch bloodsugars with diabetes and known hepatic dysfunction), decreased dose of bortezomib 0.7 mg/m? twice weekly for 2 weeks on1 week off (decreased to once weekly after first cycle due to known liver disease and thrombocytopenia), and daratumumab 8mg/kg D1,D2 IV first week, then 16 mg/kg IV weekly --10/02/2020: Started Daratumumab monthly maintenance 16mg/kg IV (stopped Velcade and Dexamethasone) --Palliative radiation 07/31/2021 right hip --09/04/2021: Start weekly Daratumumab 16mg/kg first 3 cycles and change to Revlimid 5mg daily 1-21 each 28 day cycle--now 5mg daily D1-14 every 28 days--titrate as tolerated. --02/19/2022: Continue daratumumab 16 mg/kg every other week and changed Revlimidto pomalidomide 3 mg daily days 1 through 21 each 28-day cycle. --Pomalyst was stopped after 1 week of therapy on 03/13/2022. Daratumumab held 03/19/2022 due to platelet count 41,000. We will resume both medications on arrival of dose reduce Pomalyst 2 mg days 1 through 21 every 28-day cycle. -- 04/01/2022: Now has thrombocytopenia with platelet count 40,000. Proceeding with daratumumab 16 mg/kg IV every 2 weeks and will hold Pomalyst and change dosing to 2 mg days 1 through 14 every 28-day cycle for presumed medication related myelosuppression. Daratumumab to monthly dosing since early April had nochange in Pomalyst 2 mg days 1 through 14 every 28-day cycle. --07/10/2022: Held Pomalyst 2mg daily with held dosing 2 weeks due to worsening neutropenia. Today discussed change in therapy. --07/30/2022: Changed to Pomalyst (week 1 test dose 20mg/m2 IV, then 56mg/m2 IV weekly--dose reduction for liver dysfunction due to nonalcoholic steatohepatitis) with Cytoxan 300mg/m2 IV weekly, Dexamethasone 20mg weekly. --10/29/2022: 20% dose reductions: Carfilzomib 27-->20mg/m2 IV weekly, Cyclophosphamide 300--240mg/m2 IV weekly, and Dexamethasone 20mg IV/po weekly. Goal of Treatment: Palliative - Time with Patient Time Spent with Patient (Follow Up Visit): 35 minutes - Moderate complexity 35 min to review toxicities and cytopenias on carfilzomib/cytoxan/dexamethasone--dose reductions as noted Coordination of Care & Counseling Time: Greater than 50% of time spent with patient was for coordination of care (as documented) and tnal-ca-yhcp counseling of patient and/or family. Dictated By: Fabiola Marinelli MD DD/ [id number] Signed By: <Electronically signed by MD Fabiola Marinelli> 10/29/22 [address] [facility] Work Phone: [phone] 856-142512-14-2022 Progress note Author Shannon Gallagher [facility] October 15, 2022 11:04amNote Date/TimeDecember 2021 10:48[facility] [place] [id number] Hem/Onc Follow Up Note - OP Signed Patient: Mojgan Pérez MR#: [id number] : 1955 Acct:[id number] Age/Sex: 67 / F Type: REG RCR Copies to: MD Yinka Downey MD~ Subjective Date/Time of Service: Date of Service: 10/15/2022 Time of Service: 10:48 Chief Complaint: Patient is here for a one month follow up with labs for review,prior to treatment today. HPI: 10/15/2022: Mojgan is here for follow-up for her multiple myeloma on modified CYKLONE therapy. Shecontinues to do well and remains active at home. She deniesshortness of breath, chest pain, nausea,vomiting, diarrhea or constipation. Sheis eating and drinking well. No fevers, chills, sweats, bleed ing or rash. She does note mild tongue soreness and on exam it appears she may be developing thrush, very mild currently on the tongue only. We will prescribe nystatin for this. Labs are reviewed andstable overall, ok for treatment. She will follow-upin 4wks with Dr. Marinelli with repeat labs and treatment. 09/17/2022: Mojgan is here for follow-up on modified CYKLONE therapy for her multiple myeloma. Shecontinues with fatigue, but otherwise no new complaints. She has no s/s of infection, no shortness of breath, chest pain, n/v/d or other concerns. In review of her labs, her WBC are 1.4, ANC 0.6 and platelets 43,000. Per Dr. Marinelli, given no s/s of infection and she otherwise feels well, she is okfor treatment. We discussed signs to report related to infection such as fever, chills, etc. and she will call with any concerns. We will follow-up in 3wks withrepeat labs. 08/20/2022: Mojgan is here for 3-week follow-up on modified CYKLONE therapy (cyclophosphamide 300 mg/m2 IV weekly, dexamethasone 20 mg IV weekly, and carfilzomib now 56 mg/m2 IV weekly). Baseline echocardiogram 07/18/2022 showed normal ejection fraction 60 to 65%. I discussed her case with Dr. Benavidez who advised that despite her significant thrombocytopenia she should be treated withfull dose cyclophosphamide/carfilzomib and may support with transfusions as needed. The patient's lowest platelet counts were in the 30,000's after her first week of therapy but now is up to 56,000. She has not hadany clinical bleeding. She also has persistent leukopenia 1900 today with absolute neutrophil countnow 1000. At this point as long as she does not have any significant symptoms of therapy or signs of infection or active bleeding we willcontinue her current dosing. She otherwise notes mild fatigue but no other toxicities. Prior skin rash on Pomalyst has resolved. She will follow-up in 3 weeks fortoxicity check with nurse practitioner and we will order her restagingmyeloma labs with serum protein electrophoresis with immunofixation, quantitative immunoglobulins, and kappa/lambda light chain ratio. She may return sooner ifnew issues arise. Moderate complexity follow-up over 30 minutes to address cytopenias on CYKLONE therapy. 07/10/2022: Mojgan is here for 2-month follow-up of myeloma labs. No changes in medical history and platelet count remains in the 40-50,000 range without bleeding. We held her Pomalyst (as well as daratumumab) this week due to absolute neutrophil count of 300 without any recent infections. She previously held it for 1 week due to neutropenia, took 1 tablet, then had to hold a second week due to neutropenia. We reviewed her kappa/lambda light chain ratio which continues to progress in the wrong direction (total lambda light chains now increased from 109 to 125.7 with ratio from 0.11 to 0.08). Her progressive cytopenias and worsening light chains likely reflects progression of myeloma. We could repeat her bone marrow biopsy but her most recent bone marrow biopsy on10/09/2021 showed hypercellular bone marrow (30%) with slight megakaryocytic and granulocytic hyperplasia and only 1.5% plasma cells (Lambda restricted by flow cytometry). This likely would not change her current management and I discussedher case with Dr. Benavidez of malignant hematology who recommended considering carfilzomib (Kyprolis) with cyclophosphamide. I will contact patient to coordinate baseline echocardiogram forKyprolis and likely she will require dosereductions for her underlying hepatic dysfunction and chronic cytopenias. AfterI reviewed dosing with Dr. Benavidez and pharmacy and review her echocardiogram, jayne coordinate follow-up for change in therapy and chemotherapy consent. For now we will continue daratumumab with altered dose of Pomalyst to 2 mg twice weekly ( and Mondays) until change in therapy. I will not likely send dose reduction of Pomalyst due to planned change in therapy. Moderate complexity 35 minutes for coordination of care. 05/07/2022: Improved rash on 2 mg of Pomalyst, now mild pruritus. Platelet count is 48,000 without bleeding issues. Continues weekly prednisone. Daratumumab isnow monthly since early April. Repeat kappa/lambda light chain ratio slightly higher (106 to 109) But the upward trend is starting to flatten out. F-18 Axumin PET/CT shows no new lesions, relatively stable from 1 year ago. For now given her stable symptoms and pronounced cytopenias, we will continue her current dosing daratumumab/Pomalyst/dexamethasone. Next follow-up with me in 2 months. She will return sooner for issues arise. Moderate complexity visit over 35 minutes. 04/09/2022: Mojgan continues every 2-week durvalumab with Pomalyst now 2 mg daily (dose reduced due to diffuse rash). She is now day 14 of the cycle and isnoted to have platelet count of 40,000 (no associated mucosal bleeding, bright red blood per rectum, or hematuria). No recurrent rash on this dose. She continues her weekly prednisone. I recommended changing her schedule of Pomalyst to 2 mg daily for days 1 through 14, off days 15 through 28 cycle and continuing daratumumab. Her most recent immunoglobulins have shown a steady trend upward for lambda light chain and decrease of kappa/lambda light chain ratio, however since she is now stabilizing her dosing of daratumumab/Pomalyst/dexamethasone I recommend continuing her current dosing for1 more cycle with repeat kappa/lambda light chain ratio in another month. In addition I will set her up for F-18 Axumin PET/CT to compare to PET/CT from 1 year ago (her skeletal survey showed no lesions 6 months ago). She denies any current bone pain.She will proceed with daratumumab dose as previously orderedtoday. 03/19/2022: Mojgan is here for follow-up after adverse cutaneous reaction to her first cycle of Pomalyst. She noted that after starting her first dose of Pomalyst 3 mg daily on 03/05/2022 that about 1 week later on 03/13/2022 she had a diffuse rash all over that was pruritic with increased erythema. She did not have nausea, vomiting, constipation, diarrhea, dyspnea, or any other adverse reactions. She did have a decline of platelet count to 41,000 this week which may be due to her Pomalyst. She called the pharmacy and was instructed to discontinue Pomalyst on 03/13/2022. Her rash has mostly resolved with no furtherpruritus but she still has a few macular lesions over the legs. She has been using Benadryl and topical cortisone cream with improvement of the rash. Otherwise her laboratories are stable. She does have an increased kappa/lambda light chain ratio from 03/05/2022 but this was her first day of therapy. I recommended resuming Pomalyst at next dose level 2 mg daily as soon as new medic ation arrives for 3 weeks on 1 week off. If she has recurrent rash she will again stop and we will consider further dose adjustment. Due to her thrombocytopenia we will hold her daratumumab today andconsume with first day of Pomalyst next week. She may follow-up in about 3 to 4 weeks, possibly with virologist covering at that time. Patient expressed understanding. 02/19/2022: Mojgan is here for follow-up--no new symptoms but her platelet countdropped to 48,000 last week and we are again holding her Revlimid. She has not had any bleeding or infection recently, but she has had uptrending lambda light chains and we discussed changing her therapy from lenalidomide to pomalidomide and continuing her daratumumab which is currently every other week. Her only other concern is constipation which is likely related to her pain medications. ANC was 800 today. --Today we reviewed chemotherapy counseling for lenalidomide in combination withdaratumumab/dexamethasone (stopping Revlimid). Common toxicities were reviewed to include allergic reactions, myelosuppression, thrombosis, fatigue, nausea, vomiting, constipation, diarrhea, mouth sores, and risk of secondary malignancies. Other toxicities may include pneumonitis, neurologic, hepatic and renaltoxicities. The patient signed informed consent and will follow-up as directed. Planning a trip to [place] on March 06, therefore we will hold Revlimid until arrival of her pomalidomide, then have oral chemotherapy visit. We are startingpomalidomide at 3 mg daily days 1 through 21 every 28 days due to baselineliverdysfunction. Follow-up cycle 1 week 2. We will recheck her baseline myeloma labs on start day of pomalidomide with daratumumab. 01/22/2022: Mojgan has no new complaints. She was seen by Dr. Benavidez at for evaluation for transplant and CAR-T options but given her profound thrombocytopenia, neither of these options are felt tuyet optimal for her. She has had gradual worsening of her lambda light chains without any change of r enalfunction or hypercalcemia. Her chronic thrombocytopenia has remained in the 40-50,000 range which is lower than her prior baseline. I reviewed her options with Dr. Benavidez and it is difficult to assess best options due to her chronic thrombocytopenia but standard of care at this point would be tocontinue her daratumumab and transition from the lenalidomide to pomalidomide. We will follow closely with weekly CBCs to determine if thrombocytopenia worsens on thisregimen. I will defer changing her regimen for 1 month since she is starting a new cycle of lenalidomide and has had slow progression of her lambda light chains. She will return in 1 month and will discuss pomalidomide and signed inf ormed consent. Patient is in agreement with this plan. 12/18/2021: Mojgan is here for 3-month follow-up. She has not had any significant changes in medical history other than testing positive for coronavirus infection in early November 2021. She has not been immunized for coronavirus. She notes persistent fatigue but no bone pain. No other recent infections or bleeding episodes. She recently changed from weekly to now every 2 weeks daratumumab 16 mg/kg and remains on low-dose lenalidomide 5 mg daily for2 weeks on 1 week off due to prior thrombocytopenia worsening. October 2021 skeletal survey showed no osteolytic lesions suggestive of myeloma. Initially she had improvement of her platelets to 70-100,000 but today platelets are down to 54,000. She also had some improvement of leukopenia but this is again down to 2800 with ANC 1300 today. Urinerandom M spike is not observed, but she has had progressive increase of her lambda light chains from 30 in December 2020 to 60.2 in October 2021. [place] lambda ratio has also started to decline to 0.21 in October 2021. For now I'm continuing her daratumumab with Revlimid at current dosing, but I contacted Dr. Benavidez at [facility] for CAR-T celleligibility. If he has recommendations to change her therapy, I will let her know. Otherwise I will have her follow-up with me in 1 month (she will have repeat myeloma labs 1 week prior to visit). 09/20/2021: After telephone consultation with Dr. Benavidez at , we resumed repeat loading doses of weekly daratumumab 16mg/kg and changed to low dose lenalidomide 5mg daily. She has had 2 courses of antibiotics for sinus infection over the past month and was noted to have neutropenia with ANC 900, platelets 44,000 week 2 of Revlimid, therefore this was held for one week and resumed Thursday after ANC returned to 1000. Platelet counts have persisted at 40-50,000 range without active bleeding. Otherwise tolerating therapy well. Still improved hip pain and ambulation after recent course of palliative radiation therapy. For now we will continue Daratumumab with Revlimid and Dexamethasone as ordered with weekly CBC. Gradually increasing lambda light chains--pending evaluation at for CAR-T celltherapy eligibility (has not yetbeen contacted for appointment). 4 week f/u with me with CBC, CMP, and myeloma labs (follow quant immunoglobulins and [place]/Lambda light chain ratio with skeletal survey in 2 weeks so results available for appointment). 08/30/2021: Mojgan is here for 2-week follow-up for completion of her palliative radiation therapywith significant improvement of pain in her right hip and pelvis. [facility] for possible Kyprolistherapy. This returned with ejection fraction 60% which is normal with grade 1 left ventricular diastolic dysfunction and 1+ tricuspid valve regurgitation and traceto 1+ aortic valve regurgitation. Otherwise unremarkable. I discussed her casewith Dr. Benavidez of malignant hematology at [facility]. He advised against Kyprolis therapy given her underlying liver dysfunction and recommended repeating loading doses of daratumumab weekly as well as low-dose lenalidomide which we will start at 5 mg daily since she has chronic thrombocytopenia. We will send for CAR-T therapy as a possible therapeutic option. The patient agreed with changing daratumumab to weekly and we will have her sign consent next week for change to low-dose lenalidomide therapy. Next follow-up with me will be in about 2 weeks for week 2 lenalidomide with daratumumab. 08/16/2021: One month followup, she recently completed palliative radiation therapy to right hip and pelvis. Platelet count still in 50,000 range with increased bruising but no bleeding. Still has some pain in right hip but slowlyimproving after radiation therapy. Slowly worsening lambda light chain --she is scheduled for ECHO next week. We discussed possibly changing therapy from Daratumumab, Velcade, Dexamethasone to Kyprolis, low dose lenalidomide, dexamethasoneif adequate cardiac function. Iwill discuss this with Dr. Benavidez for dosing anddetermine if CAR-T therapy is another possible option (although we may be limited due to chronic thrombocytopenia and liver disease). Followup 2-3 weeksto review results and possible consent for change in therapy. 07/17/2021: 2-month follow-up on multiple myeloma. She reports that Thursday she developed severe painin the right leg that started proximal to the knee creating it to the hip. She had increased pain with weightbearing on the right and has been using a walker at home secondary to this. She did not feel a pop or shift in ambulation, but has been using her Percocet for pain control at home. In reviewing her laboratories platelet count remains in the 52,000 range and she is otherwisPe tolerating daratumumab well. I recommended sending for right hip, femur, and knee plain film imaging that did not show any fracture. She does have a gradually rising lambda light chain but no other significant changes in her labs. I reviewed her case with Dr. Cheng of orthopedic surgery who also reviewed her prior PET/CT showing uptake in this area. We will obtain a right hip MRI, keep her completely nonweightbearing on the right leg with walker for transfers and she has an urgent orthopedic follow-up following her MRI. I will follow-up with her in 1 month to review management and we will determine if she requires prophylactic kenton for stability of the hip based on herMRI. 05/24/2021: Here to followup 05/03/2021 bone marrow biopsy--noted to have decreased cellularity 25%, flow cytometry with 0.2% plasma cells and a 1.5% monoclonal B- cell population. FISH showed 13q and 1qabnormalities but normal cytogenetics. No myelodysplasia seen. I reassured her that recent thrombocytopenia is more likely related to splenic sequestration from liver disease and not worsening myeloma. For now continue current regimen. Will alsorecheck B12, folate, and iron profile with next labs--followup in 2 months with myeloma labs, sooner prn. 04/24/2021: 1 month followup to review PET/CT. Over the past 2 days, she notes episodes of sharp left sided neck pain over sternocleidomastoid muscle and mastoid area. No radiculopathy down left upperextremity. No new side effects of Daratumumab. F18 PET/CT shows largely unchanged diffuse uptake through multiple bony sites in axial and articular skeleton. Lambda light chains rising over past 2 month and decline of platelet count to 57,000 without bleeding. MRIof thoracic spine did not show significant thoracic canal stenosis. Due to worsening neck pain with extensive uptake on F18 PET/CT--we will send for cervical MRI. Palliative medicine has increased Percocet to tid. We will repeat bone marrow biopsy due to rising lambda light chain and falling platelet count to determine if progressionof myeloma noted. This will be scheduled in the next 1-2 weeks. 03/28/2021: 2 month followup for multiple myeloma. More recently notes neck andleft shoulder pain. Fatigue and constipation stable. Labs show stable anemia and thrombocytopenia. Serum M-spike now asymmetric gamma (no quantifiable spike). Slowly improving IgG to near normal. [place]/lambda light chain ratio normal with mildly increased lambda light chains. MRI of thoracic spine for evaluation of increasing left shoulder pain. For now we will continue current dosing of Daratumumab and recheck F18 PET/CT for response in late April 2021. 01/21/2021: Mojgan is accompanied by her daughter for 2 month followup--now Daratumumab maintenance. She notes persistent fatigue and recently added as needed laxatives to stool softener for management of constipation. Persistent left hand pain--correlates to an area of bone uptake on PET/CT. Overall F18 PET/CT appears stable with no new areas if FDG avidity (still extensive bone FDGuptake). We reviewed prior plain xrays of left hand from November--she agrees toevaluation by orthopedic surgery (determine if biopsy or steroid injections). M-spike and kappa/lambda light chains pending. CBC (platelets 60-70,000); CMP stable. Will followup in 2 months with exam and labs. 11/26/2020: Mojgan is accompanied by her daughter for 2 month followup--now Daratumumab maintenance. Stable leukopenia/low platelet 70,000. Notes 3 days of hematuria and mild dysuria. Sending UA and possible culture. Otherwise no new bone pain. Blood sugars stable. M-spike and kappa/lambda light chain ratiostable. Next f/u 2 months after one year f/u PET/CT to determine response to therapy. 09/24/2020: Mojgan presents (accompanied by her daughter) for cycle 8, week 2 followup [id number] mg/kg IV weekly, Dexamethasone 20mg weekly, and Velcade 0.7 mg/m? now sq once weekly for every 3-week cycle (21 days). She notes neuropathy symptoms are stable. Tolerating therapy well without fatigue. No bleeding and thrombocytopenia stable in 60-70,0000 range. On 10/02 she will be due for maintenance therapy with Daratumumab alone once per month. I will f/u with her in 2 months with myeloma labs, sooner as needed. Velcade and Dexamethasone will be stopped after 8 cycles. 08/13/2020: Mojgan is here for cycle 6, week 2 (day 14) daratumumab 16 mg/kg weekly, Velcade 0.7 mg/m? now sq once weekly for every 3-week cycle (21 days), and dexamethasone 20 mg weekly. No new symptoms--improving thrombocytopenia to 79,000 and improved leukopenia. 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 Still has improvement of M-spike, IgA normal and decreased lambda light chain and K/L ratio. We discussed that week 25 in Dec she will change to monthly daratumumab with weekly Velcade (1mg/m2) and Dexamethasone. Continue to follow every 6-8 weeks until maintenance schedule. 06/18/2020: Mojgan is here for cycle 3 week 3 (day 21) daratumumab 16 mg/kg weekly, Velcade 0.7 mg/m? now sq once weekly for every 5-week cycle (35 days), and dexamethasone 20 mg weekly. Tolerating well with stable leukopenia and thrombocytopenia. Mild increased symptoms of hand and foot neuropathy, but no limitation in activity. Now following with diabetes management clinic with variable glucosecontrol. We reviewed lower IgA (now M-spike IgG kappa after Daratumumab--previously IgA lambda). Lambda light chain has decreased from 516 to 41.3 to now 18.5 with normalization of K/L ratio. Continue followup myeloma labs in 6 weeks, visit in 8 weeks. 05/21/2020: Mojgan is here for cycle 2 (week 7 overall) daratumumab 16 mg/kg weekly, Velcade 0.7 mg/m? now sq once weekly for every 5-week cycle (35 days), and dexamethasone 20 mg weekly. Tolerating well with stable leukopenia and thrombocytopenia. No significant neuropathy. Noted to have improvement in lambda light chains. No further daratumumab infusion reactions. No infections,stable constipation, pain control improved. No other complaints. Continue monthly f/u with myeloma labs. --Diabetes management--added insulin on dexamethasone days. Hyperglycemia improving. ------ ---- 01/18/2020 (phone followup)--The patient's son was available by phone and her daughter was contactedin a separate phone call as patient presented unaccompanied due to COVID-19 precautions in our clinic during the current epidemic. Bone marrow biopsy results were reviewed as follows from procedure pe rformed 01/26/2020: --Bone marrow biopsy was suboptimal for evaluation. --Increased lambda light chain restricted monoclonal plasma cells (1.9% by flow cytometry, approximately 6% and aspirate count, but 50% by immunohistochemical stains [id number]). Sideroblastic iron present, negative for ring sideroblasts. Peripheral blood smear with mild red blood cell anisocytosis and polychromasia, leukopenia with absolute neutropenia (1000) and thrombocytopenia (54,000) consistent with prior baseline. Note: I discussed the results with Dr. Crook 01/26/2020. Preliminary findings were also discussed with Dr. Cummings 01/27/2020. Morphologic findings, immunohistochemical stains, flow cytometry, and ancillary studies may under represent the extent and severity of disease. The results of FISH myeloma panelwith prognostic markers and cytogenetic analysis are pending. --Given the patient's hip pain and presence of lytic lesions, she meets clinicalcriteria for activemyeloma. Given her hip pain and lytic lesions in weightbearing areas she was offered radiation therapy. She had a limited courseof hypofractionated palliative therapy to bilateral proximal femurs [address] Ahn. We discussed that given the COVID-19 epidemic and absence of othersignificant changes other than bony lesions (normal renal function, normal calcium, stable cytopenias), I would defer active therapy for myeloma for 4 to 6 weeks. Since she has significant history ofliver disease I will discuss her case with Dr. Piter Benavidez at [facility] malignant hematology for optimal regimen. The patient is not a transplant candidate given her nonalcoholic steatohepatitis and chronic thrombocytopenia but may be a candidate for either doublet therapy (Revlimid/dexamethasone) or triplet therapy with either Velcade/Revlimid/dexamethasone or daratumumab/Revlimid/dexamethasone. --02/03/2020: Mojgan presented unaccompanied for follow-up of bone marrow aspiration and biopsy performed by Dr. 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 The patient had been noting increased left hip pain over the past several months andplain films of the pelvis and bilateral femurs did show subtle lucencies in the bilateral proximal femurs corresponding to PET/CT findings but no other additional sclerotic lesions identified. No pathologic fractures were seen. --03/05/2020: Mojgan notes improvement of bilateral hip pain since radiation. No other changes in medical history in the past month--no infections, normal renal function, no hypercalcemia. Stable platelet counts without bleeding. Shewas given written literature regarding Dexamethasone, Velcade (thatwould be dose reduced to 0.7mg/m2 twice weekly), weekly Daratumumab and Revlimid, but I will defer decision of which regimen to use until discussion in malignant hematology tumor board. Also referring for infusion port placement prior to initiating therapy. Sign informed consent prior to initiating therapy. --Discussed with Dr. Benavidez who favors Daratumumab combination--will request prior liver biopsy and records from [facility] liver clinic. The patient and her son (by telephone) expressed understanding and will follow- up as directed in 2 weeks for consent and likely start of therapy. --04/02/2020: Mojgan presents after infusion port placement at [facility] by interventional radiology due to platelet count 40,000--she had increased bruising at site post procedure, but this has completely resolved. Her hip painis well controlled since completion of palliative radiation and no newareas of pain. She has previously reviewed information regarding Daratumumab (first dosesplit 8mg/kg IV D1,D2, then if well tolerated 16mg/kg IV weekly), Velcade at about 50% dose (for liver dysfunction) 0.7mg/m2 D1,D4,D8, D11, and [id number] IV weekly--repeat for every 3 week cycles 1st 3 cycles. She will take chemo class and likely start therapy within 2 weeks with toxicity visit in 3 weeks. Today we reviewed chemotherapy counseling for Daratumumab, Velcade, and Dexamethasone. Common toxicities were reviewed to include infusion reaction including rash/dyspnea/wheezing, myelosuppression, fatigue, nausea, vomiting, constipation, diarrhea, mouth sores, and alopecia. Other toxicities may in cludepneumonitis, neurologic, thromboembolism, hyperglycemia, hepatic and renal toxicities. The patient signed informed consent and will follow-up as directed. --04/19/2020: Mojgan is here for cycle 1 week 2 daratumumab 16 mg/kg weekly, Velcade 0.7 mg/m? twice weekly for first 2 weeks of every 3-week cycle, and dexamethasone 20 mg weekly. She did have an infusion reaction with first daratumumab with dyspnea and flushing but this improved after first dose and shehas not had recurrent infusion reactions. We have continued Velcade despite platelet counts in the 40,000 range without bleeding as we know that her baseline platelet counts remain in this range and she has not had any significant change from her baseline. Dexamethasone has caused hyperglycemia with blood sugars up to 400 and we are referring to diabetes management clinic. Otherwise she denies any significant nausea, emesis, fever, chills, night sweats, constipation, diarrhea, rash, mouthsores, or alopecia. She has not hadany change of baseline neuropathy. Liver function tests remain stable. She notes that her hip pain is well controlled since prior palliative radiation and she saw radiation oncology earlier this week with no new recommendations. I will send her myeloma labs including serum and urine protein electrophoresis, quantitative immunoglobulins, and serum kappa/lambda light chains in 2 weeks andfollow-up with her in 3 weeks. She may be seen sooner if new issues arise. This is a 66-year-old lady on chronic disability has a history of arthritis, diabetes mellitus, hypertension, COPD, GERD, and fibromyalgia [facility]. She states that she was followed with Dr. Kumari prior to his senior care and was told that she had an elevated protein level as well as thrombocytopenia but never had clinical bleeding. She is 4 para4 without complicationsand was never told that she was thrombocytopenic while . She is had multiple prior surgicalprocedures without any clinical bleeding. She had been recommended for a pain procedure with Dr. Wilson but he declined to do the procedure because her platelet count was less than 100,000. For this reason she received 2 platelet transfusions, with little improvement of her platelet count and her second transfusion resulted in throat tightening due to allergy to platelets . She has never beentreated with steroids and has never been told that she has immune thrombocytopenia. She has mild leukopenia with relative neutropenia, absolute neutrophil count of 400-800 and mild lymphocytosis. Hemoglobin is normal. She has not had any bright red blood per rectum or epistaxis. She has no history ofbleeding within the family however does have a mother and sister diagnosed with colon cancer, a brother diagnosed with lung cancer, and another sister diagnosedwith breast cancer. She had prior pain in the right hand mainly at the first MCP joint with some associated swelling and right foot pain and was evaluated by podiatry. She was told that her blood tests were negative forgout. She had screening with MALLORY, CCP, and rheumatoid factor all of which were negative. She says that she previously saw Dr. Petersen for cirrhosis but did not know of any specific therapy. We reviewed these findings from her liver ultrasound ordered by Dr. Benavidez Summer 2016. Initial consultation with me March 16, 2017. --The patient has been followed by me for some time for diagnosis of smoldering myeloma with a prior bone marrow biopsy May 2017 showing 15% plasma cells but the patient remained asymptomatic without bone pain or other CRAB criteria for therapy. She is also noted to have an ascending aortic aneurysm and has chronicliver disease with cirrhosis secondary to nonalcoholic steatohepatitis. She haschronic thrombocytopenia without bleeding ranging from 50-100,000 this is felt to be due to sequestration from her nonalcoholic steatohepatitis. She was previously on a liver transplant list but was recently notified that she is no longer a candidate for liver transplant. She has had chronic pain from f ibromyalgia but noted increasing bilateral hip and upper thigh pain over the last 6 months. She also is followed for EGD/colonoscopy with last documented procedure 09/21/2018: 1. Normal EGD, 2. Mild sigmoid diverticulosis, 3. Internal hemorrhoids, grade 2, 4. Anal fissure with active bleeding cauterized by bipolar cautery Bone osseous survey in June 2019 showed osteopenia and degenerative changes but no lytic or blastic lesion. Patient had an F-18 PET scan 01/02/2020 which showed multiple areas of involvementof bones with increased SUV activity. She was contacted with these results by phone and I recommended bone marrow aspirate and biopsy for assessment and analysis. Her prior labs were reviewed. Her SPEP does not show anymonoclonal gammopathy. On VAHID there appears to be a trace of monoclonal gammopathy. Free light chain ratio is less than 100. There is no evidence of renal sufficiency. Patient is not anemic. She doeshave some abnormal areas on bone scan. - Summary of Therapies Summary of Therapies: 1. 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 2. She underwent a single dose of palliative radiation therapy to bilateral hips, receiving 800 cGyto right and left hip in 1 fraction in separate vaz (with a single isocenter). The treatments were given with AP/PA vaz MV photons and MLC blocks. 3. Deferred active therapy for myeloma 2 months given COVID-19 epidemic with increased risk of myelosuppression and viral transmission of contacts. --Follow-up 03/05/2020 I discussed her case with Dr. Piter Benavidez at malignant hematology. --Given her significant hepatic dysfunction, I presented her case at malignant hematology tumor board to discuss optimal therapy. 4. Cycle 1 day 1 04/10/2020: Dose reduced Velcade 0.7 mg/m? twice weekly (day 1,day 4, day 8, day 11)every 3 weeks with dexamethasone 20 mg weekly and daratumumab 16 mg/kg weekly of each 21-day cycle.After first week, Velcade decreased to 0.7mg sq weekly due to thrombocytopenia. --We will need to watch liver function, platelet count, and neuropathy closely on Velcade. 5. Cycle 9 day 1 10/02/2020: Daratumumab 16mg/kg once monthly maintenance therapy until progression. 6. 07/31/2021: Palliative radiation therapy to right supra chondral/soft tissuearea of hip which is PET positive. She received a dose of 3000 cGy in 10 fractions from 07/31/2021 to 08/15/2021 over 15 elapsed days 7. 08/30/2021: Right hip pain improved after radiation. Due to disease progression with persistent cytopenias, changed to repeat loading doses of daratumumab 16 mg/kg weekly for cycles 1 through 3 with Revlimid 5 mg daily for 3 weeks on 1 week off. Held Revlimid second week due to neutropenia with sinus infection, resumed 3 days ago (09/17/2021). Referred for CAR-T therapy evaluation. 8. 12/18/2021: Daratumumab is now 16 mg/kg every 2 weeks with Revlimid 5 mg daily for 2 weeks on 2 weeks off due to neutropenia and thrombocytopenia. Stillpending evaluation for CAR-T therapy. 9. 01/22/2022: Patient is not deemed a candidate for stem cell transplant or CAR- T therapy at this time. Discussed changing from current Revlimid to pomalidomide with continued daratumumab 16 mg/kg every 2 weeks. Plan change in therapy in 1 month. 10. 02/19/2022: Continue daratumumab 16 mg/kg IV every 2 weeks and changed to pomalidomide now 3 mg daily days 1 through 21 of each 28-day cycle (lower dose due to baseline liver dysfunction) -- 03/19/2022: Patient was noted to tolerate Pomalyst only 1 week (03/05- 03/13/2022)due to grade 3 rash. This resolved after stopping medication 1 week later. 1 dose level reduction Pomalyst to 2 mg daily days 1 through 21 of each 28-day cycle. Also holding daratumumab daily for platelet count of 41,000 and will resume at full dose with first dose of Pomalyst. -- 04/09/2022: Platelet 40,000 without bleeding. Will continue monthly Daratumumab with change of Pomalyst to 2mg D1-14 each 28 day cycle (off 2 weeks due to low platelets). Rising lambda light chains,unable to tolerate Pomalyst due to cytopenias, stopped mid 07/2022. 11. 07/18/2022: carfilzomib (dose 20mg/m2 day one then 56mg/m2 D8, D15) with cyclophosphamide 300mg IV weekly and weekly dexamethasone. Baseline echocardiogram EF 60-65%. We will follow closely for her chronic cytopenias and liver dysfunction. ROS Details: All systems reviewed & no additional complaints except as documented PMFSH - Medical History Medical History: Medical History (Last Reviewed 08/20/22 @ 10:58 by Fabiola Marinelli MD) Aortic aneurysm COPD (chronic obstructive pulmonary disease) Diabetes Fibromyalgia GERD (gastroesophageal reflux disease) Hypertension Iron deficiency Multiple myeloma Neutropenia Smoldering multiple myeloma (SMM) Smoldering myeloma Temporary low platelet count - Surgical History Surgical History: Surgical History (Last Reviewed 08/20/22 @ 10:58 by Fabiola Marinelli MD) H/O: hysterectomy History of appendectomy History of cholecystectomy - Social History Smoking Status: Former smoker Tobacco Type: cigarettes Substance Use Type: None Social History Comments: Lives with son sharonda bustos Home Medications & Allergies Allergies erythromycin base [From E-Mycin] Allergy (Verified 08/20/22 10:47) Hives latex Allergy (Verified 08/20/22 10:47) Unknown Reaction moxifloxacin [From Avelox] Allergy (Verified 08/20/22 10:47) Hives Quinolones Allergy (Verified 08/20/22 10:47) Unknown Reaction tetracycline Allergy (Verified 08/20/22 10:47) Unknown Reaction Home Medications carvedilol 12.5 mg tablet 12.5 mg PO BID 11/20/17 [History Confirmed 08/20/22] duloxetine 60 mg capsule,delayed release 60 mg PO DAILY 11/20/17 [History Confirmed 08/20/22] insulin detemir U-100 100 unit/mL (3 mL) subcutaneous pen 26 units subcut QHS 11/20/17 [History Confirmed 08/20/22] oxycodone 10 mg tablet 10 mg PO TID PRN Pain 11/20/17 [History Confirmed 08/20/22] albuterol sulfate 90 mcg/actuation aerosol inhaler 2 puff inhalation Q6H PRN Shortness Of Breath 11/24/17 [History Confirmed 08/20/22] fluticasone 250 mcg-salmeterol 50 mcg/dose blistr powdr for inhalation (Advair Diskus) 1 inh inhalation Q12H PRN Shortness Of Breath 11/24/17 [History Confirmed 08/20/22] omeprazole magnesium 20 mg tablet,delayed release (Prilosec OTC) 40 mg PO DAILY 11/24/17 [History Confirmed 08/20/22] cholecalciferol (vitamin D3) 25 mcg (1,000 unit) capsule (Vitamin D3) 1,000 unitPO DAILY 04/13/19 [History Confirmed 08/20/22] metformin 500 mg tablet,extended release 24 hr 500 mg PO BID 03/05/20 [History Confirmed 08/20/22] ondansetron HCl 8 mg tablet (Zofran) 8 mg PO TID PRN Nausea #30 tabs 04/02/20 [Rx Confirmed 08/20/22] insulin NPH isoph U-100 human 100 unit/mL subcutaneous suspension (Novolin N NPHU-100 Insulin isophane) 20 unit subcut DIRECTED 05/21/20 [History Confirmed 08/20/22] nystatin 100,000 unit/mL oral suspension 100,000 unit buccal DAILY oral pain 90 days #500 mL 06/18/20 [Rx Confirmed 08/20/22] semaglutide 0.25 mg or 0.5 mg (2 mg/1.5 mL) subcutaneous pen injector (Ozempic) 0.5 mg subcut QWEEK09/24/20 [History Confirmed 08/20/22] cyanocobalamin (vitamin B-12) 5,000 mcg capsule 5,000 mcg PO QWEEK 10/29/20 [History Confirmed 08/20/22] vitamin B12 0.5 mg-folic acid 1 mg tablet 1 tab PO DAILY 03/28/21 [History Confirmed 08/20/22] diazepam 5 mg tablet (Valium) 5 mg PO DIRECTED 1 day #2 tabs 07/17/21 [Rx Confirmed 08/20/22] gabapentin 300 mg tablet 600 mg PO TID 07/26/21 [History Confirmed 08/20/22] dexamethasone 4 mg tablet 20 mg PO ONCE 90 days #60 tabs 03/26/22 [Rx Confirmed 08/20/22] lactulose 20 gram/30 mL oral solution 20 g (30 mL) PO BID PRN Constipation #600 mL 04/09/22 [Rx Confirmed 08/20/22] ondansetron 8 mg disintegrating tablet 8 mg PO Q8H PRN Nausea #30 tabs 06/04/22 [Rx Confirmed 08/20/22] dexamethasone 4 mg tablet 40 mg PO ONCE #40 tabs 07/14/22 [Rx Confirmed 08/20/22] dexamethasone 4 mg tablet 40 mg PO ONCE #40 tabs 08/15/22 [Rx Confirmed 08/20/22] potassium chloride 10 mEq capsule,extended release 10 meq PO DAILY #30 caps 08/18/22 [Rx Confirmed 08/20/22] acyclovir 400 mg tablet 400 mg PO BID 90 days #180 tabs 09/24/22 [Rx] nystatin 100,000 unit/mL oral suspension 4 ml PO QID #200 mL 10/15/22 [Rx] Objective - Height/Weight Height/Weight: Height 5 ft 2.99 in Weight 83.9 kg BSA for Today's Weight 1.91 - Vital Signs Vital Signs: 10/15/22 10:29 Temperature 98.1 F Pulse Rate [Left Brachial] 84 Respiratory Rate 18 Blood Pressure [Right Arm] 142/88 H 02 Sat by Pulse Oximetry 98 Oxygen Delivery Method Room Air - Pain Generalized Pain Intensity: 3 Bilateral Hip Pain Intensity: 5 Left Hip Pain Intensity: 4 Lower Back Pain Intensity: 7 Left Neck Pain Intensity: 4 Back Pain Intensity: 0 Right Thigh Pain Intensity: 3 Bilateral Leg Pain Intensity: 5 Generalized Head Pain Intensity: 4 Bilateral Shoulder Pain Intensity: 6 Left index finger Pain Intensity: 4 - Distress Screening Distress Screen Results: RN Distress Screening Start: 02/07/20 10:17 Freq: Status: Complete Protocol: Document 05/01/20 09:33 DB (Rec: 05/01/20 09:33 DB [facility]-[id number]) Distress Screening Distress Score: 0 No worry/distress Distress Screening Total 0 RN Distress Screening Start: 07/26/21 12:37 Freq: Status: Active Protocol: Document 07/26/21 13:20 DB (Rec: 07/26/21 13:20 DB -[id number]) Distress Screening Distress Score: 2 Physical Concerns Pain Distress Screening Total 2 Physical Exam Narrative: Patient is alert and oriented x3. HEAD / FACE: Normocephalic. No tenderness to palpation over scalp, no sinus tenderness to palpation. EYES: Pupils are equal and reactive to light. Conjunctivae and lids are benign in appearance. Ocular movement intact. EARS: Hearing grossly intact. NOSE / MOUTH / THROAT: Tongue with trace amt of white coating to sides of tongue, none in the throat or cheeks. Mild erythema to tongue as well, no swelling. NECK / THYROID: No cervical adenopathy on exam. Thyroid is symmetrical, withoutthyromegaly, masses or palpable nodules. RESPIRATORY: Normal inspection. Lungs clear to auscultation and percussion. No wheezing, rales, rhonchi or rubs. Normal effort. CARDIOVASCULAR: Regular rate and rhythm. No murmurs, gallops, or rubs. ABDOMEN: Bowel sounds normoactive. Soft, nontender and non-distended. No hepatosplenomegaly. No masses. INTEGUMENTARY: The skin is unremarkable. No suspicious lesions or rash. No bruising or petechiae noted. MUSCULOSKELETAL: Normal musculature, normal ROM upper and lower extremities, no crepitus. EXTREMITIES: Trace bilateral leg edema. No cyanosis or clubbing. NEUROLOGICAL: Alert and oriented. Cranial nerves intact. No gross motor or sensory deficits, patient ambulates unassisted. PSYCHIATRIC: No anxiety or evidence of depression. Results - Labs Labs: Diagram of Most Recent CBC and CMP 10/14/22 09:35 10/14/22 09:35 Labs - Last 7 Days 10/14/22 09:35: PHA Creatinine Clear 69.70, Sodium 140, Potassium 3.4 L, Chloride 102, Carbon Dioxide 28.8, Anion Gap 12.6, BUN 12, Creatinine 0.43 L, Est GFR ( Amer) > 60, Est GFR (Non-Af Amer) > 60, Glucose 132 H, Calcium 8.8, Total Bilirubin 1.4 H, AST 35, ALT 37, Alkaline Phosphatase 94 H, Total Protein 5.0 L, Albumin 3.0 L, Globulin 2.0, Albumin/Globulin Ratio 1.5 10/14/22 09:35: Corrected WBC 1.9 L, Uncorrected WBC Count 1.9 L, RBC 2.98 L, Hgb 10.5 L, Hct 31.3 L, MCV 104.9 H, MCH 35.3 H, MCHC 33.6, RDW 16.9 H, Plt Count 49 L, MPV 9.3, Neut % (Auto) 55.1, Lymph % (Auto) 23.7, Hodgeman % (Auto) 17.3, Eos % (Auto) 3.6, Baso % (Auto) 0.3, Nucleat RBC Rel Count 0.1,Neut # (Auto) 1.0 L, Lymph # (Auto) 0.4 L, Hodgeman # (Auto) 0.3, Eos # (Auto) 0.1, Baso # (Auto) 0.0, Platelet Estimate Decreased, Plt Morphology Comment Normal, RBC Morphology N/A, Polychromasia Slight, Poikilocytosis Slight, Anisocytosis Slight, Tear Drop Cells Slight Assessment and Plan - TNM Staging Staging: Stage IIIA Multiple Myeloma (Durie Boring criteria) (1) Multiple myeloma Qualifiers: Multiple myeloma remission status: not in remission Qualified Code(s): C90.00 - Multiple myeloma not having achieved remission Mojgan 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 She has high risk cytogenetics and I [facility] Her persistent thrombocytopenia made her ineligible for any clinical trials, and preventedher from receiving local pain procedures given her chronic low back pain. --05/2017 PET/CT images and reports performed for staging to exclude bone involvement with myeloma. 2 indeterminate areas of uptake thought to be degenerative arthritis vs early bone findings of myeloma (right parietooccipitalarea and upper sternum). She has remained asymptomatic [...] showed no lytic lesions and she has stableshoulder, hand, and right SI joint pain (although likely due to fibromyalgia. --Prior osseous survey 07/01/2019 showed osteopenia but no compression fractures or lytic lesions were identified. She had no significant change in myeloma labs(mild increase of urine M-spike, kappa/lambda ratio, and normal serum M- spike and quant immunoglobulins). Urine protein still undetectable, therefore will continue surveillance every 6 months with the same labs--no hypercalcemia, renaldysfunction (or proteinuria), anemia, or new bone symptoms. [...] proteins with urine M spike 43.1 but totalprotein 34.4, with no reported urine creatinine. --We deferred immunosuppressive chemotherapy for about 1 month due to control ofsymptoms after palliative radiation and concern of potential peak of COVID-19 inlate January early March. --She presented for follow-up 03/05/2020 and we discussed potential therapy options (with son available by phone). --I discussed her case with Dr. Piter Benavidez of malignant hematology, possibly presenting the patient in hematology tumor board at [facility]. --Infusion port placed 03/22/2020 at [facility] due to low platelets. No complications. --03/12/2020: Myeloma labs with no serum M-spike, + urine M spike 22.2mg/24h (14%). Immunofixation IgA lambda specificity. IgA normal 227, Serum kappa 20.6, serum lambda 516.7, Free kappa/lambda ratio0.04. Normal renal function and calcium. Lower ANC 600 and platelets 40,000 --04/10/2020: Started cycle 1 day 1 of weekly dexamethasone 20 mg IV (careful to watch blood sugars with diabetes and known hepatic dysfunction), decreased dose of bortezomib 0.7 mg/m? twice weekly for2 weeks on 1 week off (due to known liver disease and thrombocytopenia), and daratumumab 8mg/kg D1,D2 IV first week,then 16 mg/kg IV weekly and we may consider Revlimid as a 4th medication if needed (deferred for worsening neutropenia and thrombocytopenia--I am reluctant to add this therapy initially). --------- --01/21/2021: One year f/u F18 PET/CT with stable FDG avidity, monoclonal labs (SPEP, Quant Igs, kappa/lambda ratio) all pending. Stable CBC and CMP. Persistent pain left hand 2nd MCP joint--increaseduptake on PET/CT but no lesion on left hand xray from 11/2020. Sending for ortho evaluation. For nowcontinue once monthly Daratumumab. F/u with myeloma labs and exam in 2 months, sooner prn. --05/24/2021: Bone marrow biopsy does not show significant progression although poor prognosis mutation 1q with 13q on FISH. Hypocellular with recent worseningplatelets without bleeding--will recheck B12, folate, and ferritin. [...] sent for plain films of the hip femurand knee showing degenerative changes but no acute [...] progression although she still has slow rise inlambda light chain and platelet count remains in [...] check. She will sign Revlimid consent Thursday. Sheis in agreement with this plan. --09/20/2021: Started daratumumab loading doses weekly with Revlimid on 09/04/2021. Held therapy forANC 900 and platelet 42,000 with sinus infection, now resolved and resumed Revlimid 5mg daily on 09/17. Will continue therapy as prescribed with weekly CBC and hold Revlimid as needed for cytopenias.Evaluation for [facility]T therapy at [facility]. Send myeloma labs and skeletal survey [...] current cycle of Revlimid with change to pomalidomide4 mg daily, follow weekly CBCs after change in therapy and determine optimal dose based on symptomsand cytopenias. Patient is in agreement with this plan. Next follow-up with me in 1 month and we will defer next light chain analysis until 1 month after change in therapy. --02/19/2022: Continued rise in lambda light chains and worsening thrombocytopenia. Today we reviewed informed consent for adding pomalidomide 3 mg daily days 1 through 21 every 28 cycle 2 every otherweek daratumumab. We are dropping Revlimid due to [...] initial cycle was only given 03/05-03/13/2022. Now thatradha has complete resolution of symptoms she may resume pomalidomide at 1 dose level reduction 2 mg daily for days 1 through 21 of each 28-day cycle. We are also holding her daratumumab today due to declining her platelet count 41,000 without bleeding. Repeat kappa/lambda light chain ratio was increased 80 on 5 4but this was her first dose of pomalidomide. Plan anticipate arrival of pomalidomide within the next 1 to 2 weeks and she may resume daratumumab on day1 of therapy. Her next follow-up will be in about 3 to 4 weeks to review toxicities. She is instructed that if she has recurrent intolerable rash she may contact us and let us know. At her 4-week follow-up we will reorder her serumkappa/lambda light chain analysis with SPEP and immunofixation to assess initialresponse to therapy. Moderate complexity visit over 25 minutes to review chemotherapy toxicity. --04/09/2022: Mojgan has not had any recurrent rash with lower dose of pomalidomide 2 mg daily. She is now day 14 and has platelet count 40,000 without bleeding. Otherwise she is tolerating therapy well without adverse effects. Her most recent labs for following myeloma show normal mild increase herfree lambda from 87 to 106, kappa/lambda ratio decreased 0.10-0.09. I will give her 1 more month ofpomalidomide with daratumumab and dexamethasone. The pomalidomide dose will be changed to 2 mg p.o.days 1 through 14, off days 15 through [...] bony lesions. Her kappa/lambda light chain ratio remainsrelatively stable since early March (0.09-0.11) with free lambda light chainsnow relatively stable (106-109). I advised continuing her current regimen and reevaluating with kappa/lambda light chain ratio in 2 months. Continue current dosing and close observation due to platelet count 48,000. No signs or symptomsof infection. Patient is in agreement with this plan. --07/10/2022: Mojgan has no new symptoms, but continued cytopenias with 2 weeks of pomalidomide helddue to recurrent neutropenia and persistent thrombocytopenia (40-50,000). Continued uptrending lambda light chains consistent with progression of myeloma. We did discuss bone marrow biopsy, but this would not policy change clerk, therefore we will give Pomalyst (now decreasedto 2mg Thursday and only) with last dose Daratumumab tomorrow. 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 Will f/u ECHO and consent for therapy tomorrow. Plan discussed with Dr. Benavidez Malignant Hematology--recommends no dose reduction of Cytoxan, but transfusion support as needed since cytopenias may be due to progression of malignancy. --08/20/2022: Mojgan is here for cycle 2 day 1 of Carfilzomib 56mg/m2 IV weekly, Cyclophosphamide 300mg/m2 IV weekly, and Dexamethasone 20mg IV/po weekly. Tolerating well without new side effects. Stable fatigue, no bleeding. Mild improvement of platelets without active bleeding, stable WBC with ANC 1000. 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 --09/17/2022: Mojgan is here for cycle 3 of modified CYKLONE regimen. She continues to do ok with only mild fatigue, no other new complaints or s/s of infection. She is ok to treat per discussion with Dr. Marinelli despite low WBC, ANCand platelets. She will follow-up in 3 weeks [...] CBC, CMP, SPEP, VAHID, immunoglobulins, and FLC. Sheis in agreement with this plan and has no questions. 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 I previously reviewed her outpatient records from [facility], including review of notes, laboratories, and prior bone marrow biopsy 13 years ago. 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 Most recent platelet count is relatively stable at 54,000 but no clinical bleeding. She waspreviously referred to weight reduction clinic and may have slow improvement of steatohepatitis with lifestyle modification. Unless she has active bleeding or planned surgery, we will continue observation during treatment of active myelomato commence next month as noted above. --Agree with recommendation for EGD surveillance for varices (last was 09/2018--negative). This will be deferred during current COVID-19 epidemic. --Prior vitamin B12 and folic acid are normal, for known history of neuropathy. As noted above, I reviewed the negative M spike on serum protein electrophoresiswith immunofixation, but positive for Bence Murray protein on urine protein electrophoresis. Her Quantitative immunoglobulins IgG, IgA, and I gM were all within normal limits, however her serum kappa lambda light chain analysis showeda predominance of lambda light chains. --Previous labs for lupus anticoagulant with DRVVT, hexagonal phase phospholipid, anti-cardiolipin IgG and IgA, and beta 2 glycoprotein IgG and IgA were within normal limits. --Evaluated in ED November 2019 for epistaxis which resolved. Platelet count wasstable at 12/28/2019 follow-up. She continues surveillance with liver clinic at [facility] and I will continue to follow her every 6 months, sooner if newbleeding issues arise. --04/02/2020: We reviewed informed consent for Daratumumab/Velcade/Dexamethasone for active myeloma therapy. I requested prior liver biopsy results and notes from liver clinic at [facility]. Platelet count in 40,000 range but patient has had no active bleeding following infusion port placement 03/22/2020. --08/13/2020: Cycle 6 week 2 toxicity check with improved thrombocytopenia 79,000 range with no bleeding. We will continue current dosing with Velcade 0.7mg/m2 sq (now once weekly), dexamethasone 20 mg weekly, and full dose daratumumab with close follow-up of liver function and platelet counts. --09/24/2020, 01/21/2021, 03/28/2021: Platelets stable 60-70,000 with no new toxicities, started Daratumumab maintenance 10/02/2020. --04/24/2021: Platelets now down to 57,000 with rising lambda light chains. Will eval with repeat bone marrow biopsy due to nonsecretory myeloma. --05/24/2021: Bone marrow hypocellular without significant myeloma progression. Normal B12/folate stores, continue Daratumumab maintenance. --08/16/2021: Persistent thrombocytopenia in 50,000 range, consider change in therapy due to risinglambda light chains. Will check echo and review case withDr. Benavidez at to discuss next line of therapy. --08/30/2021: Stable platelets--decision to resume weekly Daratumumab 16mg first 3 cycles and change to Revlimid 5mg daily 1-21 each 28 day cycle--titrate as tolerated --09/20/2021: Platelets have declined to 40-50,000 range without mucosal bleeding. Held Revlimid atplatelets 42,000 during sinus infection, resumed after one week off. Will follow weekly CBCs on Daratumumab/Revlimid. --12/18/2021, 01/22/2022: Platelets still in the 50,000 range without mucosal bleeding. Current dosing of daratumumab every 2 weeks and Revlimid 5 mg daily 2weeks on 2 weeks off--plan to change to pomalidomide 3 mg daily next cycle. -- 02/19/2022: Last week platelets were 48,000 and we held Revlimid. This week platelets 58,000 but continuing to hold Revlimid due to change to daratumumab 16mg/kg IV every 2 weeks with pomalidomide 3 mg daily days 1 through 21 every 28-day cycle -- 03/19/2022: Platelets were down to 41,000 and we held daratumumab as well as Pomalyst for rash asnoted above. Resume Pomalyst at 2 mg days 1 through 21 every 28 days. Continue daratumumab 16 mg/kgevery 2 weeks. -- 04/09/2022: Platelets down to 40,000. Okay to give daratumumab 16 mg/kg IV every 2 weeks but Pomalyst dose will be changed to 2 mg days 1 through 14 every 28 days. Follow-up 1 month. -- 05/07/2022: Platelets 48,000. Continue monthly daratumumab 16mg/kg IV with same Pomalyst dose 2mg daily D1-14 every 28 days. Extend next follow-up with kappa/lambda light chain ratio to 2 months. --07/10/2022: Platelets 53,000 with ANC now 600 (held Pomalyst one week for ANC 300). May have one dose Pomalyst today, then hold for change in therapy. Will have platelet transfusion as needed for change in therapy to Kyprolis/Cytoxan/Deamethasone. --08/20/2022: Platelets declined to mid 30,000 range about 4 weeks ago--now up to 56,000 and WBC 1600 and ANC 1000 on Kyprolis/Cytoxan/Deamethasone. No activebleeding. Continue current dosing and f/uin 3 weeks. --09/17/2022: Platelets at 43,000 without recent transfusion. WBC and ANC at 1.4and 600 respectively. Will continue with treatment. --10/15/2022: Platelets at 49,000. No s/s of bleeding. Ok for treatment. (3) Cancer-related pain Improved symptoms after palliative radiation to bilateral hips--one dose 02/07/2020. Will continue tofollow on myeloma chemotherapy. Extensive, but stable bone involvement on F-18 PET/CT 12/2020 and 04/2021. Recent increased leftneck and shoulder pain. Increased oxycodone dosing to three times daily, no unusual right hip pain is noted above--followed by palliative medicine. -Completed right hip radiation with persistent but improved pain--no new pain issues with follow-upvisit with radiation in early March 2022, follow-up as needed. Will continue to follow with palliative medicine. 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 She wasreferred to [facility] to attempt weight reduction through diet and exercise that may prevent further fatty infiltration that may further impairher liver function. [facility] hepatology discussed liver transplant but sheis likely no longer a candidate for this given active myeloma. We chose least hepatotoxic regimen for treatment of her active myeloma with 50% dose reduction of Velcade. Liver function remained stable since start of therapy 04/10/2020. --Requested prior liver biopsy and [facility] liver clinic records. Dose reduction 20% Kyprolis due to KAPADIA with cirrhosis (normal bilirubin and transaminases). Stable LFTs on current Kyprolis/Cytoxan/Deamethasone therapy. (5) Encounter for chemotherapy management Initial Daratumumab maintenance tolerated well without significant toxicities. Bone marrow biopsy did not reveal indication for change in therapy. --09/04/2021: Repeat loading with weekly Daratumumab 16mg first 3 cycles and changed to Revlimid 5mgdaily 1-21 each 28 day cycle--02/19/2022 reviewed informed consent to change to pomalidomide next cycle. --03/19/2022. Pomalyst was stopped after 1 week of therapy on 03/13/2022. Daratumumab held 03/19/2022 due to platelet count 41,000. We resumed both medications on arrival of dose reduce Pomalyst 2 mg days 1 through 21 every 28- day cycle. -- 04/09/2022: Daratumumab is monthly maintenance. Mid July: last dose Pomalyst 2mg today with ANC 600. -- 07/30/2022: Changed chemo to Kyprolis/Cytoxan, normal baseline Echo. Will continue every 3 week therapy until progression or intolerable toxicity. (6) History of 2019 novel coronavirus disease (COVID-19) - Chemo Plan Chemo Plan (Dose, Rate, Freq): Palliative radiation to 02/07/2020, deferred active therapy for myeloma for 8 weeks due to current COVID-19 epidemic. Discussed at Malignant Hematology Tumor Board early March to determine optimal regimen given her comorbidities. --04/10/2020: cycle 1, day 1 weekly dexamethasone 20 mg IV (careful to watch bloodsugars with diabetes and known hepatic dysfunction), decreased dose of bortezomib 0.7 mg/m? twice weekly for 2 weeks on1 week off (decreased to once weekly after first cycle due to known liver disease and thrombocytopenia), and daratumumab 8mg/kg D1,D2 IV first week, then 16 mg/kg IV weekly --10/02/2020: Started Daratumumab monthly maintenance 16mg/kg IV (stopped Velcade and Dexamethasone) --Palliative radiation 07/31/2021 right hip --09/04/2021: Start weekly Daratumumab 16mg/kg first 3 cycles and change to Revlimid 5mg daily 1-21 each 28 day cycle--now 5mg daily D1-14 every 28 days--titrate as tolerated. --02/19/2022: Continue daratumumab 16 mg/kg every other week and changed Revlimidto pomalidomide 3 mg daily days 1 through 21 each 28-day cycle. --Pomalyst was stopped after 1 week of therapy on 03/13/2022. Daratumumab held 03/19/2022 due to platelet count 41,000. We will resume both medications on arrival of dose reduce Pomalyst 2 mg days 1 through 21 every 28-day cycle. -- 04/01/2022: Now has thrombocytopenia with platelet count 40,000. Proceeding with daratumumab 16 mg/kg IV every 2 weeks and will hold Pomalyst and change dosing to 2 mg days 1 through 14 every 28-day cycle for presumed medication related myelosuppression. Daratumumab to monthly dosing since early April had nochange in Pomalyst 2 mg days 1 through 14 every 28-day cycle. --07/10/2022: Held Pomalyst 2mg daily with held dosing 2 weeks due to worsening neutropenia. Today discussed change in therapy. --07/30/2022: Changed to Pomalyst (week 1 test dose 20mg/m2 IV, then 56mg/m2 IV weekly--dose reduction for liver dysfunction due to nonalcoholic steatohepatitis) with Cytoxan 300mg/m2 IV weekly, Dexamethasone 20mg weekly. Goal of Treatment: Palliative - Time with Patient Time Spent with Patient (Follow Up Visit): 35 minutes - Moderate complexity 35 min to review toxicities and cytopenias on carfilzomib/cytoxan/dexamethasone Coordination of Care & Counseling Time: Greater than 50% of time spent with patient was for coordination of care (as documented) and [id number] counseling of patient and/or family. Dictated By: Shannon Gallagher APRN DD/ [id number] Signed By: <Electronically signed by KEITH Gallagher> 10/15/22 2611 [facility] Work Phone: [phone] 203-163712-12-2022 History of Present illness Narrative* Juan J Mendez MD - 10/13/2022 4:03 PM EST SUBJECTIVE: Mojgan Pérez is a 67 year old female. Patient presents with: Cardiology Follow Up Mojgan Pérez was referred by Self HPI: The patient is a pleasant, 67-year-old female, who underwent extensive evaluation at the [facility], April 2019, after presenting with chest discomfort. [...] which confirmed an ejection fraction of 60-65%. CARDIAC HISTORY: SYMPTOMS: Chest pain/discomfort: Yes, Palpitations:No, Arrhythmia: No Dyspnea: Yes, Dyspnea at rest: No, Nocturnal dyspnea: Yes Orthopnea: No, Diaphoresis: No, Dizziness: No, Syncope: No, Edema: No, Nocturia: Yes, Impaired exercise tolerance: Yes, Claudication:No CONDITIONS: Hypertension: Yes, Heart failure:No, [place] Heart Association Functional Classification: Class II, Atrial [...] file Gets together: Not on file Attends roman catholic service: Not on file Active member of [...] negative or non-contributory. OBJECTIVE: VITALS: Blood pressure 130/78, pulse 84, height 157.5 cm (5' 2 ), weight 83 kg (183 lb). PHYSICAL EXAMINATION: Physical examination was unchanged from [...] pacemaker/ICD:No, Median sternotomy scar:No, Sternal instability:No CARDIAC: [place] beat not localized, Cardiac thrill:No, Heart rate normal:Yes, Heart rhythm normal:Yes, S1 normal:Yes, S2 normal:Yes, S3 ausculated:No, S4 ausculated:No, Gallop ausculated:No, Heart murmur:No, Prosthetic valve click:No, Pericardial friction rub:No ABDOMINAL:Abdomen [...] discussed. Instructed on chest pain. ASSESSMENT/PLAN/RECOMMENDATIONS: The outside echocardiographic findings were reviewed in detail with the patient and her colleague and all questions answered. The patient will follow with me as scheduled in April 2022, at which visit a repeat echo will be performed. Portions of the encounter note have been copied from a previous note, dated 04/28/2022, which has been updated where appropriate and reflects my current medical decision making from today. Encounter Diagnosis ICD-10-CM 1. Atypical chest pain R07.89 2. Thoracic ascending aortic aneurysm (HCC) I71.2 3. Abnormal stress test R94.39 4. Coronary artery disease involving kiana coronary artery of kiana heart without angina [id number] Juan J Mendez MD [facility]Reg[facility] Miscellaneous Notes* Telephone Encounter - Cheyenne Guerrero MA - 10/13/2022 3:35 PM EST Received records (ECHO report, US, CXR, etc) from [facility]. Pt has appt today at [address] Mendez to review these. Copy sent for scanning. documented in this encounterReg[facility]11-20-2022 Progress note Author Shannon Gallagher [facility] September 21, 2022 7:35pmNote Date/TimeNovember 2021 10:18[facility] [place] [address] Hem/Onc Follow Up Note - OP Signed Patient: Mojgan Pérez MR#: [id number] : 1955 Acct:[id number] Age/Sex: 67 / F Type: REG RCR Copies to: MD Yinka Downey MD~ Subjective Date/Time of Service: Date of Service: 09/17/2022 Time of Service: 10:18 Chief Complaint: Patient is here for a one month follow up with labs for review,prior to treatment today. Patient reports headaches. No other concerns voiced. HPI: 09/17/2022: Mojgan is here for follow-up on modified CYKLONE therapy for her multiple myeloma. Shecontinues with fatigue, but otherwise no new complaints. She has no s/s of infection, no shortness of breath, chest pain, n/v/d or other concerns. In review of her labs, her WBC are 1.4, ANC 0.6 and platelets 43,000. Per Dr. Marinelli, given no s/s of infection and she otherwise feels well, she is okfor treatment. We discussed signs to report related to infection such as fever, chills, etc. and she will call with any concerns. We will follow-up in 3wks withrepeat labs. 08/20/2022: Mojgan is here for 3-week follow-up on modified CYKLONE therapy (cyclophosphamide 300 mg/m2 IV weekly, dexamethasone 20 mg IV weekly, and carfilzomib now 56 mg/m2 IV weekly). Baseline echocardiogram 07/18/2022 showed normal ejection fraction 60 to 65%. I discussed her case with Dr. Benavidez who advised that despite her significant thrombocytopenia she should be treated withfull dose cyclophosphamide/carfilzomib and may support with transfusions as needed. The patient's lowest platelet counts were in the 30,000's after her first week of therapy but now is up to 56,000. She has not hadany clinical bleeding. She also has persistent leukopenia 1900 today with absolute neutrophil countnow 1000. At this point as long as she does not have any significant symptoms of therapy or signs of infection or active bleeding we willcontinue her current dosing. She otherwise notes mild fatigue but no other toxicities. Prior skin rash on Pomalyst has resolved. She will follow-up in 3 weeks fortoxicity check with nurse practitioner and we will order her restagingmyeloma labs with serum protein electrophoresis with immunofixation, quantitative immunoglobulins, and kappa/lambda light chain ratio. She may return sooner if new issues arise. Moderate complexity follow-up over 30 minutes to address cytopenias on CYKLONE therapy. 07/10/2022: oMjgan is here for 2-month follow-up of myeloma labs. No changes in medical history and platelet count remains in the 40-50,000 range without bleeding. We held her Pomalyst (as well as daratumumab) this week due to absolute neutrophil count of 300 without any recent infections. She previously held it for 1 week due to neutropenia, took 1 tablet, then had to hold a second week due to neutropenia. We reviewed her kappa/lambda light chain ratio which continues to progress in the wrong direction (total lambda light chains now increased from 109 to 125.7 with ratio from 0.11 to 0.08). Her progressive cytopenias and worsening light chains likely reflects progression of myeloma. We could repeat her bone marrow biopsy but her most recent bone marrow biopsy on10/09/2021 showed hypercellular bone marrow (30%) with slight megakaryocytic and granulocytic hyperplasia and only 1.5% plasma cells (Lambda restricted by flow cytometry). This likely would not change her current management and I discussedher case with Dr. Benavidez of malignant hematology who recommended considering carfilzomib (Kyprolis) with cyclophosphamide. I will contact patient to coordinate baseline echocardiogram forKyprolis and likely she will require dosereductions for her underlying hepatic dysfunction and chronic cytopenias. AfterI reviewed dosing with Dr. Benavidez and pharmacy and review her echocardiogram, jayne coordinate follow-up for change in therapy and chemotherapy consent. For now we will continue daratumumab with altered dose of Pomalyst to 2 mg twice weekly ( and Mondays) until change in therapy. I will not likely send dose reduction of Pomalyst due to planned change in therapy. Moderate complexity 35 minutes for coordination of care. 05/07/2022: Improved rash on 2 mg of Pomalyst, now mild pruritus. Platelet count is 48,000 without bleeding issues. Continues weekly prednisone. Daratumumab isnow monthly since early April. Repeat kappa/lambda light chain ratio slightly higher (106 to 109) But the upward trend is starting to flatten out. F-18 Axumin PET/CT shows no new lesions, relatively stable from 1 year ago. For now given her stable symptoms and pronounced cytopenias, we will continue her current dosing daratumumab/Pomalyst/dexamethasone. Next follow-up with me in 2 months. She will return sooner for issues arise. Moderate complexity visit over 35 minutes. 04/09/2022: Mojgan continues every 2-week durvalumab with Pomalyst now 2 mg daily (dose reduced due to diffuse rash). She is now day 14 of the cycle and isnoted to have platelet count of 40,000 (no associated mucosal bleeding, bright red blood per rectum, or hematuria). No recurrent rash on this dose. She continues her weekly prednisone. I recommended changing her schedule of Pomalyst to 2 mg daily for days 1 through 14, off days 15 through 28 cycle and continuing daratumumab. Her most recent immunoglobulins have shown a steady trend upward for lambda light chain and decrease of kappa/lambda light chain ratio, however since she is now stabilizing her dosing of daratumumab/Pomalyst/dexamethasone I recommend continuing her current dosing for1 more cycle with repeat kappa/lambda light chain ratio in another month. In addition I will set her up for F-18 Axumin PET/CT to compare to PET/CT from 1 year ago (her skeletal survey showed no lesions 6 months ago). She denies any current bone pain.She will proceed with daratumumab dose as previously orderedtoday. 03/19/2022: Mojgan is here for follow-up after adverse cutaneous reaction to her first cycle of Pomalyst. She noted that after starting her first dose of Pomalyst 3 mg daily on 03/05/2022 that about 1 week later on 03/13/2022 she had a diffuse rash all over that was pruritic with increased erythema. She did not have nausea, vomiting, constipation, diarrhea, dyspnea, or any other adverse reactions. She did have a decline of platelet count to 41,000 this week which may be due to her Pomalyst. She called the pharmacy and was instructed to discontinue Pomalyst on 03/13/2022. Her rash has mostly resolved with no furtherpruritus but she still has a few macular lesions over the legs. She has been using Benadryl and topical cortisone cream with improvement of the rash. Otherwise her laboratories are stable. She does have an increased kappa/lambda light chain ratio from 03/05/2022 but this was her first day of therapy. I recommended resuming Pomalyst at next dose level 2 mg daily as soon as new medic ation arrives for 3 weeks on 1 week off. If she has recurrent rash she will again stop and we will consider further dose adjustment. Due to her thrombocytopenia we will hold her daratumumab today andconsume with first day of Pomalyst next week. She may follow-up in about 3 to 4 weeks, possibly with virologist covering at that time. Patient expressed understanding. 02/19/2022: Mojgan is here for follow-up--no new symptoms but her platelet countdropped to 48,000 last week and we are again holding her Revlimid. She has not had any bleeding or infection recently, but she has had uptrending lambda light chains and we discussed changing her therapy from lenalidomide to pomalidomide and continuing her daratumumab which is currently every other week. Her only other concern is constipation which is likely related to her pain medications. ANC was 800 today. --Today we reviewed chemotherapy counseling for lenalidomide in combination withdaratumumab/dexamethasone (stopping Revlimid). Common toxicities were reviewed to include allergic reactions, myelosuppression, thrombosis, fatigue, nausea, vomiting, constipation, diarrhea, mouth sores, and risk of secondary malignancies. Other toxicities may include pneumonitis, neurologic, hepatic andrenal toxicities. The patient signed informed consent and will follow-up as directed. Planning a trip to [place] on March 06, therefore we will hold Revlimid until arrival of her pomalidomide, then have oral chemotherapy visit. We are starting pomalidomide at 3 mg daily days 1 through 21 every 28 days due to baseline liver dysfunction. Follow-up cycle 1 week 2. We will recheck her baseline myeloma labs on start day of pomalidomide with daratumumab. 01/22/2022: Mojgan has no new complaints. She was seen by Dr. Benavidez at for evaluation for transplant and CAR-T options but given her profound thrombocytopenia, neither of these options are felt tuyet optimal for her. She has had gradual worsening of her lambda light chains without any change of r enalfunction or hypercalcemia. Her chronic thrombocytopenia has remained in the 40-50,000 range which is lower than her prior baseline. I reviewed her options with Dr. Benavidez and it is difficult to assess best options due to her chronic thrombocytopenia but standard of care at this point would be tocontinue her daratumumab and transition from the lenalidomide to pomalidomide. We will follow closely with weekly CBCs to determine if thrombocytopenia worsens on thisregimen. I will defer changing her regimen for 1 month since she is starting a new cycle of lenalidomide and has had slow progression of her lambda light chains. She will return in 1 month and will discuss pomalidomide and signed inf ormed consent. Patient is in agreement with this plan. 12/18/2021: Mojgan is here for 3-month follow-up. She has not had any significant changes in medical history other than testing positive for coronavirus infection in early November 2021. She has not been immunized for coronavirus. She notes persistent fatigue but no bone pain. No other recent infections or bleeding episodes. She recently changed from weekly to now every 2 weeks daratumumab 16 mg/kg and remains on low-dose lenalidomide 5 mg daily for2 weeks on 1 week off due to prior thrombocytopenia worsening. October 2021 skeletal survey showed no osteolytic lesions suggestive of myeloma. Initially shehad improvement of her platelets to 70-100,000 but today platelets are down to 54,000. She also had some improvement of leukopenia but this is again down to 2800 with ANC 1300 today. Urine random M spike is not observed, but she has hadprogressive increase of her lambda light chains from 30 in December 2020 to 60.2 inDecember 2020. [place] lambda ratio has also started to decline to 0.21 in 2020. For now I'm continuing her daratumumab with Revlimid at current dosing, but I contacted Dr. Benavidez at [facility] for CAR-T cell eligibility. If he has recommendations to changeher therapy, I will let her know. Otherwise I will have her follow-up with me in 1 month (she will have repeat myeloma labs 1 week prior to visit). 09/20/2021: After telephone consultation with Dr. Benavidez at , we resumed repeat loading doses of weekly daratumumab 16mg/kg and changed to low dose lenalidomide 5mg daily. She has had 2 courses of antibiotics for sinus infection over the past month and was noted to have neutropenia with ANC 900, platelets 44,000 week 2 of Revlimid, therefore this was held for one week and resumed Thursday after ANC returned to 1000. Platelet counts have persisted at 40-50,000 range without active bleeding. Otherwise tolerating therapy well. Still improved hip pain and ambulation after recent course of palliative radiation therapy. For now we will continue Daratumumab with Revlimid and Dexamethasone as ordered with weekly CBC. Gradually increasing lambda light chains--pending evaluation at for CAR-T celltherapy eligibility (has not yetbeen contacted for appointment). 4 week f/u with me with CBC, CMP, and myeloma labs (follow quant immunoglobulins and [place]/Lambda light chain ratio with skeletal survey in 2 weeks so results available for appointment). 08/30/2021: Mojgan is here for 2-week follow-up for completion of her palliative radiation therapywith significant improvement of pain in her right hip and pelvis. We sent her for echocardiogram performed 08/23/2021 at [facility] [place] as baseline for possible Kyprolis therapy. This returned with ejection fraction 60% which is normal with grade 1 left ventricular diastolic dysfunction and 1+ tricuspid valve regurgitation and trace to 1+ aortic valve regurgitation.Otherwise unremarkable. I discussed her case with Dr. Benavidez of malignant hematology at [facility]. He advised against Kyprolis therapy given her underlying liver dysfunction and recommended repeating loading doses of daratumumab weekly as well as low-dose lenalidomide which we will start at 5 mg daily since she has chronic thrombocytopenia. We will send for CAR-T therapy as a possible therapeutic option. The patient agreed with changing daratumumab to weekly and we will haveher sign consent next week for change to low-dose lenalidomide therapy. Next follow-up with me will be in about 2 weeks for week 2 lenalidomide with daratumumab. 08/16/2021: One month followup, she recently completed palliative radiation therapy to right hip and pelvis. Platelet count still in 50,000 range with increased bruising but no bleeding. Still has some pain in right hip but slowlyimproving after radiation therapy. Slowly worsening lambda light chain --she is scheduled for ECHO next week. We discussed possibly changing therapy from Daratumumab, Velcade, Dexamethasone to Kyprolis, low dose lenalidomide, dexamethasone if adequate cardiac function. I will discuss this with Dr. Benavidez for dosing and determine if CAR-T therapy is another possible option (although we may be limited due to chronic thrombocytopenia and liver disease). Followup 2-3 weeks to review results and possible consent for change in therapy. 07/17/2021: 2-month follow-up on multiple myeloma. She reports that Thursday she developed severe painin the right leg that started proximal to the knee creatingit to the hip. She had increased pain with weightbearing on the right and has been using a walker at home secondary to this. She did not feel a pop or shift in ambulation, but has been using her Percocet for pain control at home. In reviewing her laboratories platelet count remains in the 52,000 range and she isotherwisPe tolerating daratumumab well. I recommended sending for right hip, femur, and knee plain film imaging that did not show any fracture. She does have a gradually rising lambda light chain but no other significant changes in her labs. I reviewed her case with Dr. Cheng of orthopedic surgery who also reviewed her priorPET/CT showing uptake in this area. We will obtain a right hip MRI, keep her completely nonweightbearing on the right leg with walker for transfers and she has an urgent orthopedic follow-up following her MRI. I will follow-up with her in 1 month to review management and we will determine if she requires prophylactic kenton for stability of the hip based on her MRI. 05/24/2021: Here to followup 05/03/2021 bone marrow biopsy--noted to have decreased cellularity 25%, flow cytometry with 0.2% plasma cells and a 1.5% monoclonalB- cell population. FISH showed 13q and 1q abnormalities but normal cytogenetics. No myelodysplasia seen. I reassured her that recent thrombocytopenia is more likely related to splenic sequestration from liver disease and not worsening myeloma. For now continue current regimen. Will alsorecheck B12, folate, and iron profile with next labs--followup in 2 months with myeloma labs, sooner prn. 04/24/2021: 1 month followup to review PET/CT. Over the past 2 days, she notes episodes of sharp left sided neck pain over sternocleidomastoid muscle and mastoid area. No radiculopathy down left upperextremity. No new side effects of Daratumumab. F18 PET/CT shows largely unchanged diffuse uptake through multiple bony sites in axial and articular skeleton. Lambda light chains risingover past 2 month and decline of platelet count to 57,000 without bleeding. MRIof thoracic spine did not show significant thoracic canal stenosis. Due to worsening neck pain with extensive uptake on F18 PET/CT--we will send for cervical MRI. Palliative medicine has increased Percocet to tid. We will repeat bone marrow biopsy due to rising lambda light chain and falling platelet count to determine if progression of myeloma noted. This will be scheduled in the next 1-2 weeks. 03/28/2021: 2 month followup for multiple myeloma. More recently notes neck andleft shoulder pain. Fatigue and constipation stable. Labs show stable anemia and thrombocytopenia. Serum M-spike now asymmetric gamma (no quantifiable spike). Slowly improving IgG to near normal. [place]/lambda light chain ratio normal with mildly increased lambda light chains. MRI of thoracic spine for evaluation of increasing left shoulder pain. For now we will continue current dosing of Daratumumab and recheck F18 PET/CT for response in late April 2021. 01/21/2021: Mojgan is accompanied by her daughter for 2 month followup--now Daratumumab maintenance. She notes persistent fatigue and recently added as needed laxatives to stool softener for management of constipation. Persistent left hand pain--correlates to an area of bone uptake on PET/CT. Overall F18 PET/CT appears stable with no new areas if FDG avidity (still extensive bone FDGuptake). We reviewed prior plain xrays of left hand from November--she agrees toevaluation by orthopedic surgery (determine if biopsy or steroid injections). M-spike and kappa/lambda light chains pending. CBC (platelets 60-70,000); CMP stable. Will followup in 2 months with exam and labs. 11/26/2020: Mojgan is accompanied by her daughter for 2 month followup--now Daratumumab maintenance. Stable leukopenia/low platelet 70,000. Notes 3 days of hematuria and mild dysuria. Sending UA and possible culture. Otherwise no new bone pain. Blood sugars stable. M-spike and kappa/lambda light chain ratiostable. Next f/u 2 months after one year f/u PET/CT to determine response to therapy. 09/24/2020: Mojgan presents (accompanied by her daughter) for cycle 8, week 2 followup [id number] mg/kg IV weekly, Dexamethasone 20mg weekly, and Velcade 0.7 mg/m? now sq once weekly for every 3-week cycle (21 days). She notes neuropathy symptoms are stable. Tolerating therapy well without fatigue. No bleeding and thrombocytopenia stable in 60-70,0000 range. On 10/02 she will be due for maintenance therapy with Daratumumab alone once per month. I will f/u with her in 2 months with myeloma labs, sooner as needed. Velcade and Dexamethasone will be stopped after 8 cycles. 08/13/2020: Mojgan is here for cycle 6, week 2 (day 14) daratumumab 16 mg/kg weekly, Velcade 0.7 mg/m? now sq once weekly for every 3-week cycle (21 days), and dexamethasone 20 mg weekly. No new symptoms--improving thrombocytopenia to 79,000 and improved leukopenia. 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 Still has improvement of M-spike, IgA normal and decreased lambda light chain and K/L ratio. We discussed that week 25 in Oct she will change to monthly daratumumab with weekly Velcade (1mg/m2) and Dexamethasone. Continue to follow every 6-8 weeks until maintenance schedule. 06/18/2020: Mojgan is here for cycle 3 week 3 (day 21) daratumumab 16 mg/kg weekly, Velcade 0.7 mg/m? now sq once weekly for every 5-week cycle (35 days), and dexamethasone 20 mg weekly. Tolerating well with stable leukopenia and thrombocytopenia. Mild increased symptoms of hand and foot neuropathy, but no limitation in activity. Now following with diabetes management clinic with variable glucosecontrol. We reviewed lower IgA (now M-spike IgG kappa after Daratumumab--previously IgA lambda). Lambda light chain has decreased from 516 to 41.3 to now 18.5 with normalization of K/L ratio. Continue followup myeloma labs in 6 weeks, visit in 8 weeks. 05/21/2020: Mojgan is here for cycle 2 (week 7 overall) daratumumab 16 mg/kg weekly, Velcade 0.7 mg/m? now sq once weekly for every 5-week cycle (35 days), and dexamethasone 20 mg weekly. Tolerating well with stable leukopenia and thrombocytopenia. No significant neuropathy. Noted to have improvement in lambda light chains. No further daratumumab infusion reactions. No infections,stable constipation, pain control improved. No other complaints. Continue monthly f/u with myeloma labs. --Diabetes management--added insulin on dexamethasone days. Hyperglycemia improving. 01/18/2020 (phone followup)--The patient's son was available by phone and her daughter was contactedin a separate phone call as patient presented unaccompanied due to COVID-19 precautions in our clinic during the current epidemic. Bone marrow biopsy results were reviewed as follows from procedure pe rformed 01/26/2020: --Bone marrow biopsy was suboptimal for evaluation. --Increased lambda light chain restricted monoclonal plasma cells (1.9% by flow cytometry, approximately 6% and aspirate count, but 50% by immunohistochemical stains [id number]). Sideroblastic iron present, negative for ring sideroblasts. Peripheral blood smear with mild red blood cell anisocytosis and polychromasia, leukopenia with absolute neutropenia (1000) and thrombocytopenia (54,000) consistent with prior baseline. Note: I discussed the results with Dr. Crook 01/26/2020. Preliminary findings were also discussed with Dr. Cummings 01/27/2020. Morphologic findings, immunohistochemical stains, flow cytometry, and ancillary studies may under represent the extent and severity of disease. The results of FISH myeloma panelwith prognostic markers and cytogenetic analysis are pending. --Given the patient's hip pain and presence of lytic lesions, she meets clinicalcriteria for activemyeloma. Given her hip pain and lytic lesions in weightbearing areas she was offered radiation therapy. She had a limited courseof hypofractionated palliative therapy to bilateral proximal femurs [address] Ahn. We discussed that given the COVID-19 epidemic and absence of othersignificant changes other than bony lesions (normal renal function, normal calcium, stable cytopenias), I would defer active therapy for myeloma for 4 to 6 weeks. Since she has significant history ofliver disease I will discuss her case with Dr. Piter Benavidez at [facility] malignant hematology for optimal regimen. The patient is not a transplant candidate given her nonalcoholic steatohepatitis and chronic thrombocytopenia but may be a candidate for either doublet therapy (Revlimid/dexamethasone) or triplet therapy with either Velcade/Revlimid/dexamethasone or daratumumab/Revlimid/dexamethasone. --02/03/2020: Mojgan presented unaccompanied for follow-up of bone marrow aspiration and biopsy performed by Dr. 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 The patient had been noting increased left hip pain over the past several months andplain films of the pelvis and bilateral femurs did show subtle lucencies in the bilateral proximal femurs corresponding to PET/CT findings but no other additional sclerotic lesions identified. No pathologic fractures were seen. --03/05/2020: Mojgan notes improvement of bilateral hip pain since radiation. No other changes in medical history in the past month--no infections, normal renal function, no hypercalcemia. Stable platelet counts without bleeding. Shewas given written literature regarding Dexamethasone, Velcade (thatwould be dose reduced to 0.7mg/m2 twice weekly), weekly Daratumumab and Revlimid, but I will defer decision of which regimen to use until discussion in malignant hematology tumor board. Also referring for infusion port placement prior to initiating therapy. Sign informed consent prior to initiating therapy. --Discussed with Dr. Benavidez who favors Daratumumab combination--will request prior liver biopsy and records from [facility] liver clinic. The patient and her son (by telephone) expressed understanding and will follow- up as directed in 2 weeks for consent and likely start of therapy. --04/02/2020: Mojgan presents after infusion port placement at [facility] by interventional radiology due to platelet count 40,000--she had increased bruising at site post procedure, but this has completely resolved. Her hip painis well controlled since completion of palliative radiation and no newareas of pain. She has previously reviewed information regarding Daratumumab (first dosesplit 8mg/kg IV D1,D2, then if well tolerated 16mg/kg IV weekly), Velcade at about 50% dose (for liver dysfunction) 0.7mg/m2 D1,D4,D8, D11, and [id number] IV weekly--repeat for every 3 week cycles 1st 3 cycles. She will take chemo class and likely start therapy within 2 weeks with toxicity visit in 3 weeks. Today we reviewed chemotherapy counseling for Daratumumab, Velcade, and Dexamethasone. Common toxicities were reviewed to include infusion reaction including rash/dyspnea/wheezing, myelosuppression, fatigue, nausea, vomiting, constipation, diarrhea, mouth sores, and alopecia. Other toxicities may in cludepneumonitis, neurologic, thromboembolism, hyperglycemia, hepatic and renal toxicities. The patient signed informed consent and will follow-up as directed. --04/19/2020: Mojgan is here for cycle 1 week 2 daratumumab 16 mg/kg weekly, Velcade 0.7 mg/m? twice weekly for first 2 weeks of every 3-week cycle, and dexamethasone 20 mg weekly. She did have an infusion reaction with first daratumumab with dyspnea and flushing but this improved after first dose and shehas not had recurrent infusion reactions. We have continued Velcade despite platelet counts in the 40,000 range without bleeding as we know that her baseline platelet counts remain in this range and she has not had any significant change from her baseline. Dexamethasone has caused hyperglycemia with blood sugars up to 400 and we are referring to diabetes management clinic. Otherwise she denies any significant nausea, emesis, fever, chills, night sweats, constipation, diarrhea, rash, mouthsores, or alopecia. She has not hadany change of baseline neuropathy. Liver function tests remain stable. She notes that her hip pain is well controlled since prior palliative radiation and she saw radiation oncology earlier this week with no new recommendations. I will send her myeloma labs including serum and urine protein electrophoresis, quantitative immunoglobulins, and serum kappa/lambda light chains in 2 weeks andfollow-up with her in 3 weeks. She may be seen sooner if new issues arise. This is a 66-year-old lady on chronic disability has a history of arthritis, diabetes mellitus, hypertension, COPD, GERD, and fibromyalgia who was previouslyfollowed [facility] for chronic mild to moderate thrombocytopenia. She states that she was followed with Dr. Kumari prior to his senior care and was told that she had an elevated protein level as well as thrombocytopenia but never had clinical bleeding. She is 4 para4 without complicationsand was never told that she was thrombocytopenic while . She is had multiple prior surgicalprocedures without any clinical bleeding. She had been recommended for a pain procedure with Dr. Wilson but he declined to do the procedure because her platelet count was less than 100,000. For this reason she received 2 platelet transfusions, with little improvement of her platelet count and her second transfusion resulted in throat tightening due to allergy to platelets . She has never been treated with steroids and has never been told that she has immune thrombocytopenia. She has mild leukopenia with relative neutropenia, absolute neutrophil count of 400-800 and mild lymphocytosis. Hemoglobin is normal. She has not had any bright red blood per rectum or epistaxis. She has no history ofbleeding within the family however does have a mother and sister diagnosed with colon cancer, a brother diagnosed with lung cancer, and another sister diagnosedwith breast cancer. She had prior pain in the right hand mainly at the first MCP joint with some associated swelling and right foot pain and was evaluated by podiatry. She was told that her blood tests were negative forgout. She had screening with MALLORY, CCP, and rheumatoid factor all of which were negative. She says that she previously saw Dr. Petersen for cirrhosis but did not know of any specific therapy. We reviewed these findings from her liver ultrasound ordered by Dr. Benavidez Summer 2016. Initial consultation with me March 16, 2017. --The patient has been followed by me for some time for diagnosis of smoldering myeloma with a prior bone marrow biopsy May 2017 showing 15% plasma cells but the patient remained asymptomatic without bone pain or other CRAB criteria for therapy. She is also noted to have an ascending aortic aneurysm and has chronicliver disease with cirrhosis secondary to nonalcoholic steatohepatitis. She haschronic thrombocytopenia without bleeding ranging from 50-100,000 this is felt to be due to sequestration from her nonalcoholic steatohepatitis. She was previously on a liver transplant list but was recently notified that she is no longer a candidate for liver transplant. She has had chronic pain from f ibromyalgia but noted increasing bilateral hip and upper thigh pain over the last 6 months. She also is followed for EGD/colonoscopy with last documented procedure 09/21/2018: 1. Normal EGD, 2. Mild sigmoid diverticulosis, 3. Internal hemorrhoids, grade 2, 4. Anal fissure with active bleeding cauterized by bipolar cautery Bone osseous survey in June 2019 showed osteopenia and degenerative changes but no lytic or blastic lesion. Patient had an F-18 PET scan 01/02/2020 which showed multiple areas of involvementof bones with increased SUV activity. She was contacted with these results by phone and I recommended bone marrow aspirate and biopsy for assessment and analysis. Her prior labs were reviewed. Her SPEP does not show anymonoclonal gammopathy. On VAHID there appears to be a trace of monoclonal gammopathy. Free light chain ratio is less than 100. There is no evidence of renal sufficiency. Patient is not anemic. She doeshave some abnormal areas on bone scan. - Summary of Therapies Summary of Therapies: 1. 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 2. She underwent a single dose of palliative radiation therapy to bilateral hips, receiving 800 cGyto right and left hip in 1 fraction in separate vaz (with a single isocenter). The treatments were given with AP/PA vaz [id number] MV photons and MLC blocks. 3. Deferred active therapy for myeloma 2 months given COVID-19 epidemic with increased risk of myelosuppression and viral transmission of contacts. --Follow-up 03/05/2020 I discussed her case with Dr. Piter Benavidez at malignant hematology. --Given her significant hepatic dysfunction, I presented her case at malignant hematology tumor board to discuss optimal therapy. 4. Cycle 1 day 1 04/10/2020: Dose reduced Velcade 0.7 mg/m? twice weekly (day 1,day 4, day 8, day 11)every 3 weeks with dexamethasone 20 mg weekly and daratumumab 16 mg/kg weekly of each 21-day cycle.After first week, Velcade decreased to 0.7mg sq weekly due to thrombocytopenia. --We will need to watch liver function, platelet count, and neuropathy closely on Velcade. 5. Cycle 9 day 1 10/02/2020: Daratumumab 16mg/kg once monthly maintenance therapy until progression. 6. 07/31/2021: Palliative radiation therapy to right supra chondral/soft tissuearea of hip which is PET positive. She received a dose of 3000 cGy in 10 fractions from 07/31/2021 to 08/15/2021 over 15 elapsed days 7. 08/30/2021: Right hip pain improved after radiation. Due to disease progression with persistent cytopenias, changed to repeat loading doses of daratumumab 16 mg/kg weekly for cycles 1 through 3 with Revlimid 5 mg daily for 3 weeks on 1 week off. Held Revlimid second week due to neutropenia with sinus infection, resumed 3 days ago (09/17/2021). Referred for CAR-T therapy evaluation. 8. 12/18/2021: Daratumumab is now 16 mg/kg every 2 weeks with Revlimid 5 mg daily for 2 weeks on 2 weeks off due to neutropenia and thrombocytopenia. Stillpending evaluation for CAR-T therapy. 9. 01/22/2022: Patient is not deemed a candidate for stem cell transplant or CAR- T therapy at this time. Discussed changing from current Revlimid to pomalidomide with continued daratumumab 16 mg/kg every 2 weeks. Plan change in therapy in 1 month. 10. 02/19/2022: Continue daratumumab 16 mg/kg IV every 2 weeks and changed to pomalidomide now 3 mg daily days 1 through 21 of each 28-day cycle (lower dose due to baseline liver dysfunction) -- 03/19/2022: Patient was noted to tolerate Pomalyst only 1 week (03/05- 03/13/2022)due to grade 3 rash. This resolved after stopping medication 1 week later. 1 dose level reduction Pomalyst to 2 mg daily days 1 through 21 of each 28-day cycle. Also holding daratumumab daily for platelet count of 41,000 and will resume at full dose with first dose of Pomalyst. -- 04/09/2022: Platelet 40,000 without bleeding. Will continue monthly Daratumumab with change of Pomalyst to 2mg D1-14 each 28 day cycle (off 2 weeks due to low platelets). Rising lambda light chains,unable to tolerate Pomalyst due to cytopenias, stopped mid 07/2022. 11. 07/18/2022: carfilzomib (dose 20mg/m2 day one then 56mg/m2 D8, D15) with cyclophosphamide 300mg IV weekly and weekly dexamethasone. Baseline echocardiogram EF 60-65%. We will follow closely for her chronic cytopenias andliver dysfunction. ROS Details: All systems reviewed & no additional complaints except as documented PMFSH - Medical History Medical History: Medical History (Last Reviewed 08/20/22 @ 10:58 by Fabiola Marinelli MD) Aortic aneurysm COPD (chronic obstructive pulmonary disease) Diabetes Fibromyalgia GERD (gastroesophageal reflux disease) Hypertension Iron deficiency Multiple myeloma Neutropenia Smoldering multiple myeloma (SMM) Smoldering myeloma Temporary low platelet count - Surgical History Surgical History: Surgical History (Last Reviewed 08/20/22 @ 10:58 by Fabiola Marinelli MD) H/O: hysterectomy History of appendectomy History of cholecystectomy - Social History Smoking Status: Former smoker Tobacco Type: cigarettes Substance Use Type: None Social History Comments: Lives with son sharonda bustos Home Medications & Allergies Allergies erythromycin base [From E-Mycin] Allergy (Verified 08/20/22 10:47) Hives latex Allergy (Verified 08/20/22 10:47) Unknown Reaction moxifloxacin [From Avelox] Allergy (Verified 08/20/22 10:47) Hives Quinolones Allergy (Verified 08/20/22 10:47) Unknown Reaction tetracycline Allergy (Verified 08/20/22 10:47) Unknown Reaction Home Medications carvedilol 12.5 mg tablet 12.5 mg PO BID 11/20/17 [History Confirmed 08/20/22] duloxetine 60 mg capsule,delayed release 60 mg PO DAILY 11/20/17 [History Confirmed 08/20/22] insulin detemir U-100 100 unit/mL (3 mL) subcutaneous pen 26 units subcut QHS 11/20/17 [History Confirmed 08/20/22] oxycodone 10 mg tablet 10 mg PO TID PRN Pain 11/20/17 [History Confirmed 08/20/22] albuterol sulfate 90 mcg/actuation aerosol inhaler 2 puff inhalation Q6H PRN Shortness Of Breath 11/24/17 [History Confirmed 08/20/22] fluticasone 250 mcg-salmeterol 50 mcg/dose blistr powdr for inhalation (Advair Diskus) 1 inh inhalation Q12H PRN Shortness Of Breath 11/24/17 [History Confirmed 08/20/22] omeprazole magnesium 20 mg tablet,delayed release (Prilosec OTC) 40 mg PO DAILY 11/24/17 [History Confirmed 08/20/22] cholecalciferol (vitamin D3) 25 mcg (1,000 unit) capsule (Vitamin D3) 1,000 unitPO DAILY 04/13/19 [History Confirmed 08/20/22] metformin 500 mg tablet,extended release 24 hr 500 mg PO BID 03/05/20 [History Confirmed 08/20/22] ondansetron HCl 8 mg tablet (Zofran) 8 mg PO TID PRN Nausea #30 tabs 04/02/20 [Rx Confirmed 08/20/22] insulin NPH isoph U-100 human 100 unit/mL subcutaneous suspension (Novolin N NPHU-100 Insulin isophane) 20 unit subcut DIRECTED 05/21/20 [History Confirmed 08/20/22] nystatin 100,000 unit/mL oral suspension 100,000 unit buccal DAILY oral pain 90 days #500 mL 06/18/20 [Rx Confirmed 08/20/22] semaglutide 0.25 mg or 0.5 mg (2 mg/1.5 mL) subcutaneous pen injector (Ozempic) 0.5 mg subcut QWEEK09/24/20 [History Confirmed 08/20/22] cyanocobalamin (vitamin B-12) 5,000 mcg capsule 5,000 mcg PO QWEEK 10/29/20 [History Confirmed 08/20/22] vitamin B12 0.5 mg-folic acid 1 mg tablet 1 tab PO DAILY 03/28/21 [History Confirmed 08/20/22] diazepam 5 mg tablet (Valium) 5 mg PO DIRECTED 1 day #2 tabs 07/17/21 [Rx Confirmed 08/20/22] gabapentin 300 mg tablet 600 mg PO TID 07/26/21 [History Confirmed 08/20/22] acyclovir 400 mg tablet 400 mg PO BID 90 days #180 tabs 12/24/21 [Rx Confirmed 08/20/22] dexamethasone 4 mg tablet 20 mg PO ONCE 90 days #60 tabs 03/26/22 [Rx Confirmed 08/20/22] lactulose 20 gram/30 mL oral solution 20 g (30 mL) PO BID PRN Constipation #600 mL 04/09/22 [Rx Confirmed 08/20/22] ondansetron 8 mg disintegrating tablet 8 mg PO Q8H PRN Nausea #30 tabs 06/04/22 [Rx Confirmed 08/20/22] pomalidomide 2 mg capsule (Pomalyst) 2 mg PO DAILY 28 days #14 caps 06/24/22 [Rx Confirmed 08/20/22] dexamethasone 4 mg tablet 40 mg PO ONCE #40 tabs 07/14/22 [Rx Confirmed 08/20/22] dexamethasone 4 mg tablet 40 mg PO ONCE #40 tabs 08/15/22 [Rx Confirmed 08/20/22] potassium chloride 10 mEq capsule,extended release 10 meq PO DAILY #30 caps 08/18/22 [Rx Confirmed 08/20/22] Objective - Height/Weight Height/Weight: Height 5 ft 2.99 in Weight 83.8 kg BSA for Today's Weight 1.92 - Vital Signs Vital Signs: 09/17/22 09:57 Temperature 98 F Pulse Rate [Left Brachial] 86 Respiratory Rate 20 Blood Pressure [Right Arm] 137/90 02 Sat by Pulse Oximetry 100 Oxygen Delivery Method Room Air - Pain Generalized Pain Intensity: 3 Bilateral Hip Pain Intensity: 5 Left Hip Pain Intensity: 4 Lower Back Pain Intensity: 7 Left Neck Pain Intensity: 4 Back Pain Intensity: 0 Right Thigh Pain Intensity: 3 Bilateral Leg Pain Intensity: 5 Generalized Head Pain Intensity: 4 Bilateral Shoulder Pain Intensity: 6 Left index finger Pain Intensity: 4 - Distress Screening Distress Screen Results: RN Distress Screening Start: 02/07/20 10:17 Freq: Status: Complete Protocol: Document 05/01/20 09:33 DB (Rec: 05/01/20 09:33 DB [facility]-[id number]) Distress Screening Distress Score: 0 No worry/distress Distress Screening Total 0 RN Distress Screening Start: 07/26/21 12:37 Freq: Status: Active Protocol: Document 07/26/21 13:20 DB (Rec: 07/26/21 13:20 DB -[id number]) Distress Screening Distress Score: 2 Physical Concerns Pain Distress Screening Total 2 Physical Exam Narrative: Patient is alert and oriented x3. HEAD / FACE: Normocephalic. No tenderness to palpation over scalp, no sinus tenderness to palpation. EYES: Pupils are equal and reactive to light. Conjunctivae and lids are benign in appearance. Ocular movement intact. EARS: Hearing grossly intact. NOSE / MOUTH / THROAT: Nose, mouth, tongue and oropharynx exam without visible lesion. NECK / THYROID: No cervical adenopathy on exam. Thyroid is symmetrical, withoutthyromegaly, masses or palpable nodules. LYMPHATIC: No palpable cervical, supraclavicular, axillary, or inguinal adenopathy. RESPIRATORY: Normal inspection. Lungs clear to auscultation and percussion. No wheezing, rales, rhonchi or rubs. Normal effort. Right chest wall infusion portwithout erythema. CARDIOVASCULAR: Regular rate and rhythm. No murmurs, gallops, or rubs. ABDOMEN: Bowel sounds normoactive. Soft, nontender and non-distended. No hepatosplenomegaly. No masses. INTEGUMENTARY: The skin is unremarkable. Resolved lower extremity macular rash.No suspicious lesions. No bruising or petechiae noted. MUSCULOSKELETAL: Normal musculature, normal ROM upper and lower extremities, no crepitus. EXTREMITIES: Trace bilateral leg edema. No cyanosis or clubbing. NEUROLOGICAL: Alert and oriented. Cranial nerves intact. No gross motor or sensory deficits, patient ambulates unassisted. PSYCHIATRIC: No anxiety or evidence of depression. Results - Labs Labs: Diagram of Most Recent CBC and CMP 09/16/22 10:12 09/16/22 10:12 Labs - Last 7 Days 09/16/22 10:12: PHA Creatinine Clear 69.98, Sodium 137, Potassium 3.6, Chloride 105, Carbon Lmtmvmm58.8, Anion Gap 8.8, BUN 12, Creatinine 0.43 L, Est GFR ( Amer) > 60, Est GFR (Non-Af Amer) > 60, Glucose 102 H, Calcium 8.4, Total Bilirubin 1.0, AST 32, ALT 29, Alkaline Phosphatase 97H, Total Protein 4.8 L, Albumin 3.0 L, Globulin 1.8, Albumin/Globulin Ratio 1.7 09/16/22 10:12: Corrected WBC 1.4 L, Uncorrected WBC Count 1.4 L, RBC 3.04 L, Hgb 10.4 L, Hct 31.3 L, MCV 103.3 H, MCH 34.4 H, MCHC 33.3, RDW 17.8 H, Plt Count 43 L, MPV 8.4, Neut % (Auto) 45.3, Lymph % (Auto) 35.7, [place]eman % (Auto) 16.8, Eos % (Auto) 2.0, Baso % (Auto) 0.2, Neut # (Auto) 0.6 L, Lymph# (Auto) 0.5 L, [place] # (Auto) 0.2, Eos # (Auto) 0.0, Baso # (Auto) 0.0, Nucleated RBC % (auto) 0.1,Platelet Estimate Decreased L, Plt Morphology Comment Normal, RBC Morphology N/A, Polychromasia Slight, Anisocytosis Slight, Macrocytosis Slight 09/12/22 14:00: PHA Creatinine Clear 69.98, Sodium 138, Potassium 3.9, Chloride 105, Carbon Fnnebve80.8, Anion Gap 10.1, BUN 13, Creatinine 0.50, Est GFR ( Amer) > 60, Est GFR (Non-Af Amer) > 60, Glucose 107 H, Calcium 8.6, Total Bilirubin 1.2, AST 27, ALT 27, Alkaline Phosphatase 94 H, Total Protein 4.7 L, Albumin 3.0 L, Globulin 1.7, Albumin/Globulin Ratio 1.8 09/12/22 14:00: Corrected WBC 1.2 L, Uncorrected WBC Count 1.2 L, RBC 3.03 L, Hgb 10.4 L, Hct 31.4 L, MCV 103.6 H, MCH 34.4 H, MCHC 33.2, RDW 18.2 H, Plt Count 41 L, MPV 8.6, Neut % (Auto) N/A, Lymph% (Auto) N/A, Hodgeman % (Auto) N/A, Eos % (Auto) N/A, Baso % (Auto) N/A, Neut # (Auto) N/A, Lymph # (Auto) N/A, Hodgeman# (Auto) N/A, Eos # (Auto) N/A, Baso # (Auto) N/A, Nucleated RBC % (auto) 0.1, Band Neutrophils % 1, Lymphocytes % 43 H, Monocytes % 13 H, Eosinophils % 1, Metamyelocytes % 1 H, Segmented Neutrophils 38 L, Reactive Lymphocytes 3, Platelet Estimate Decreased, Large Platelets Slight, PltMorphology Comment N/A,RBC Morphology N/A, Anisocytosis S, Macrocytosis Slight, Ovalocytes Slight, Schistocytes Slight 09/12/22 14:00: IgG 323 L, IgA 20 L, IgM 8 L, Free [place] LC, Quant 6.5, Free Lambda LC, Quant 44.3 H, Free [place]/Lambda Ratio 0.15 L 09/09/22 14:05: IgG 333 L, IgA 20 L, IgM 9 L, Free [place] LC, Quant 6.9, Free Lambda LC, Quant 40.2 H, Free [place]/Lambda Ratio 0.17 L Assessment and Plan - TNM Staging Staging: Stage IIIA Multiple Myeloma (Durie Boring criteria) (1) Multiple myeloma Qualifiers: Multiple myeloma remission status: not in remission Qualified Code(s): C90.00 - Multiple myeloma not having achieved remission Mojgan 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 She has high risk cytogenetics and I [facility] Her persistent thrombocytopenia made her ineligible for any clinical trials, and preventedher from receiving local pain procedures given her chronic low back pain. --05/2017 PET/CT images and reports performed for staging to exclude bone involvement with myeloma. 2 indeterminate areas of uptake thought to be degenerative arthritis vs early bone findings of myeloma (right parietooccipitalarea and upper sternum). She has remained asymptomatic [...] showed no lytic lesions and she has stableshoulder, hand, and right SI joint pain (although likely due to fibromyalgia. --Prior osseous survey 07/01/2019 showed osteopenia but no compression fractures or lytic lesions were identified. She had no significant change in myeloma labs(mild increase of urine M-spike, kappa/lambda ratio, and normal serum M- spike and quant immunoglobulins). Urine protein still undetectable, therefore will continue surveillance every 6 months with the same labs--no hypercalcemia, renaldysfunction (or proteinuria), anemia, or new bone symptoms. [...] proteins with urine M spike 43.1 but totalprotein 34.4, with no reported urine creatinine. --We deferred immunosuppressive chemotherapy for about 1 month due to control ofsymptoms after palliative radiation and concern of potential peak of COVID-19 inlate January early March. --She presented for follow-up 03/05/2020 and we discussed potential therapy options (with son available by phone). --I discussed her case with Dr. Piter Benavidez of malignant hematology, possibly presenting the patient in hematology tumor board at [facility]. --Infusion port placed 03/22/2020 at [facility] due to low platelets. No complications. --03/12/2020: Myeloma labs with no serum M-spike, + urine M spike 22.2mg/24h (14%). Immunofixation IgA lambda specificity. IgA normal 227, Serum kappa 20.6, serum lambda 516.7, Free kappa/lambda ratio0.04. Normal renal function and calcium. Lower ANC 600 and platelets 40,000 --04/10/2020: Started cycle 1 day 1 of weekly dexamethasone 20 mg IV (careful to watch blood sugars with diabetes and known hepatic dysfunction), decreased dose of bortezomib 0.7 mg/m? twice weekly for2 weeks on 1 week off (due to known liver disease and thrombocytopenia), and daratumumab 8mg/kg D1,D2 IV first week,then 16 mg/kg IV weekly and we may consider Revlimid as a 4th medication if needed (deferred for worsening neutropenia and thrombocytopenia--I am reluctant to add this therapy initially). --------- --01/21/2021: One year f/u F18 PET/CT with stable FDG avidity, monoclonal labs (SPEP, Quant Igs, kappa/lambda ratio) all pending. Stable CBC and CMP. Persistent pain left hand 2nd MCP joint--increaseduptake on PET/CT but no lesion on left hand xray from 11/2020. Sending for ortho evaluation. For nowcontinue once monthly Daratumumab. F/u with myeloma labs and exam in 2 months, sooner prn. --05/24/2021: Bone marrow biopsy does not show significant progression although poor prognosis mutation 1q with 13q on FISH. Hypocellular with recent worseningplatelets without bleeding--will recheck B12, folate, and ferritin. [...] sent for plain films of the hip femurand knee showing degenerative changes but no acute [...] progression although she still has slow rise inlambda light chain and platelet count remains in [...] check. She will sign Revlimid consent Thursday. Sheis in agreement with this plan. --09/20/2021: Started daratumumab loading doses weekly with Revlimid on 09/04/2021. Held therapy forANC 900 and platelet 42,000 with sinus infection, now resolved and resumed Revlimid 5mg daily on 09/17. Will continue therapy as prescribed with weekly CBC and hold Revlimid as needed for cytopenias.Evaluation for [facility]T therapy at [facility]. Send myeloma labs and skeletal survey [...] current cycle of Revlimid with change to pomalidomide4 mg daily, follow weekly CBCs after change in therapy and determine optimal dose based on symptomsand cytopenias. Patient is in agreement with this plan. Next follow-up with me in 1 month and we will defer next light chain analysis until 1 month after change in therapy. --02/19/2022: Continued rise in lambda light chains and worsening thrombocytopenia. Today we reviewed informed consent for adding pomalidomide 3 mg daily days 1 through 21 every 28 cycle 2 every otherweek daratumumab. We are dropping Revlimid due to [...] initial cycle was only given 03/05-03/13/2022. Now thatradha has complete resolution of symptoms she may resume pomalidomide at 1 dose level reduction 2 mg daily for days 1 through 21 of each 28-day cycle. We are also holding her daratumumab today due to declining her platelet count 41,000 without bleeding. Repeat kappa/lambda light chain ratio was increased 80 on 5 4but this was her first dose of pomalidomide. Plan anticipate arrival of pomalidomide within the next 1 to 2 weeks and she may resume daratumumab on day1 of therapy. Her next follow-up will be [...] for following myeloma show normal mild increase herfree lambda from 87 to 106, kappa/lambda ratio decreased 0.10-0.09. I will give her 1 more month ofpomalidomide with daratumumab and dexamethasone. The pomalidomide dose will be changed to 2 mg p.o.days 1 through 14, off days 15 through 28. Repeat her myeloma labs in 1 month with kappa/lambda light chain ratio. If worsening we may consider change in therapy (discussed with Avery Rivera, oncology pharmacy to potentially choose regimen with least probable thrombocytopenia). --05/07/2022: Mojagn is tolerating low-dose pomalidomide with now monthly daratumumab and weekly dexamethasone well. 1 year follow-up PET/CT from 04/30/2022 shows no new bony lesions. Her kappa/lambda light chain ratio remainsrelatively stable since early March (0.09-0.11) with free lambda light chainsnow relatively stable (106-109). I advised continuing her current regimen and reevaluating with kappa/lambda light chain ratio in 2 months. Continue current dosing and close observation due to platelet count 48,000. No signs or symptomsof infection. Patient is in agreement with this plan. --07/10/2022: Mojgan has no new symptoms, but continued cytopenias with 2 weeks of pomalidomide helddue to recurrent neutropenia and persistent thrombocytopenia (40-50,000). Continued uptrending lambda light chains consistent with progression of myeloma. We did discuss bone marrow biopsy, but this would not policy change clerk, therefore we will give Pomalyst (now decreasedto 2mg Thursday and only) with last dose Daratumumab tomorrow. 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 Will f/u ECHO and consent for therapy tomorrow. Plan discussed with Dr. Benavidez Malignant Hematology--recommends no dose reduction of Cytoxan, but transfusion support as needed since cytopenias may be due to progression of malignancy. --08/20/2022: Mojgan is here for cycle 2 day 1 of Carfilzomib 56mg/m2 IV weekly, Cyclophosphamide 300mg/m2 IV weekly, and Dexamethasone 20mg IV/po weekly. Tolerating well without new side effects. Stable fatigue, no bleeding. Mild improvement of platelets without active bleeding, stable WBC with ANC 1000. 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 --09/17/2022: Mojgan is here for cycle 3 of modified CYKLONE regimen. She continues to do ok with only mild fatigue, no other new complaints or s/s of infection. She is ok to treat per discussion with Dr. Marinelli despite low WBC, ANCand platelets. She will follow-up in 3 weeks with next cycle, sooner as needed. 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 I previously reviewed her outpatient records from [facility] [place], including review of notes, laboratories, and prior bone marrow biopsy 13 years ago. 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 Most recent platelet count is relatively stable at 54,000 but no clinical bleeding. She waspreviously referred to weight reduction clinic and may have slow improvement of steatohepatitis with lifestyle modification. Unless she has active bleeding or planned surgery, we will continue observation during treatment of active myelomato commence next month as noted above. --Agree with recommendation for EGD surveillance for varices (last was 09/2018--negative). This will be deferred during current COVID-19 epidemic. --Prior vitamin B12 and folic acid are normal, for known history of neuropathy. As noted above, I reviewed the negative M spike on serum protein electrophoresiswith immunofixation, but positive for Bence Murray protein on urine protein electrophoresis. Her Quantitative immunoglobulins IgG, IgA, and I gM were all within normal limits, however her serum kappa lambda light chain analysis showeda predominance of lambda light chains. --Previous labs for lupus anticoagulant with DRVVT, hexagonal phase phospholipid, anti-cardiolipin IgG and IgA, and beta 2 glycoprotein IgG and IgA were within normal limits. --Evaluated in ED November 2019 for epistaxis which resolved. Platelet count wasstable at 12/28/2019 follow-up. She continues surveillance with liver clinic at [facility] and I will continue to follow her every 6 months, sooner if newbleeding issues arise. --04/02/2020: We reviewed informed consent for Daratumumab/Velcade/Dexamethasone for active myeloma therapy. I requested prior liver biopsy results and notes from liver clinic at [facility]. Platelet count in 40,000 range but patient has had no active bleeding following infusion port placement 03/22/2020. --08/13/2020: Cycle 6 week 2 toxicity check with improved thrombocytopenia 79,000 range with no bleeding. We will continue current dosing with Velcade 0.7mg/m2 sq (now once weekly), dexamethasone 20 mg weekly, and full dose daratumumab with close follow-up of liver function and platelet counts. --09/24/2020, 01/21/2021, 03/28/2021: Platelets stable 60-70,000 with no new toxicities, started Daratumumab maintenance 10/02/2020. --04/24/2021: Platelets now down to 57,000 with rising lambda light chains. Will eval with repeat bone marrow biopsy due to nonsecretory myeloma. --05/24/2021: Bone marrow hypocellular without significant myeloma progression. Normal B12/folate stores, continue Daratumumab maintenance. --08/16/2021: Persistent thrombocytopenia in 50,000 range, consider change in therapy due to risinglambda light chains. Will check echo and review case withDr. Benavidez at to discuss next line of therapy. --08/30/2021: Stable platelets--decision to resume weekly Daratumumab 16mg first 3 cycles and change to Revlimid 5mg daily 1-21 each 28 day cycle--titrate as tolerated --09/20/2021: Platelets have declined to 40-50,000 range without mucosal bleeding. Held Revlimid atplatelets 42,000 during sinus infection, resumed after one week off. Will follow weekly CBCs on Daratumumab/Revlimid. --12/18/2021, 01/22/2022: Platelets still in the 50,000 range without mucosal bleeding. Current dosing of daratumumab every 2 weeks and Revlimid 5 mg daily 2weeks on 2 weeks off--plan to change to pomalidomide 3 mg daily next cycle. -- 02/19/2022: Last week platelets were 48,000 and we held Revlimid. This week platelets 58,000 but continuing to hold Revlimid due to change to daratumumab 16mg/kg IV every 2 weeks with pomalidomide 3 mg daily days 1 through 21 every 28-day cycle -- 03/19/2022: Platelets were down to 41,000 and we held daratumumab as well as Pomalyst for rash asnoted above. Resume Pomalyst at 2 mg days 1 through 21 every 28 days. Continue daratumumab 16 mg/kgevery 2 weeks. -- 04/09/2022: Platelets down to 40,000. Okay to give daratumumab 16 mg/kg IV every 2 weeks but Pomalyst dose will be changed to 2 mg days 1 through 14 every 28 days. Follow-up 1 month. -- 05/07/2022: Platelets 48,000. Continue monthly daratumumab 16mg/kg IV with same Pomalyst dose 2mg daily D1-14 every 28 days. Extend next follow-up with kappa/lambda light chain ratio to 2 months. --07/10/2022: Platelets 53,000 with ANC now 600 (held Pomalyst one week for ANC 300). May have one dose Pomalyst today, then hold for change in therapy. Will have platelet transfusion as needed for change in therapy to Kyprolis/Cytoxan/Deamethasone. --08/20/2022: Platelets declined to mid 30,000 range about 4 weeks ago--now up to 56,000 and WBC 1600 and ANC 1000 on Kyprolis/Cytoxan/Deamethasone. No activebleeding. Continue current dosing and f/uin 3 weeks. --09/17/2022: Platelets at 43,000 without recent transfusion. WBC and ANC at 1.4and 600 respectively. Will continue with treatment. (3) Cancer-related pain Improved symptoms after palliative radiation to bilateral hips--one dose 02/07/2020. Will continue tofollow on myeloma chemotherapy. Extensive, but stable boneinvolvement on F-18 PET/CT 12/2020 and 04/2021. Recent increased left neck and shoulder pain. Increased oxycodone dosing to three times daily, no unusual right hip pain is noted above--followed by palliative medicine. -Completed right hip radiation with persistent but improved pain--no new pain issues with follow-upvisit with radiation in early March 2022, follow-up as needed. Will continue to follow with palliative medicine. 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 She wasreferred to [facility] to attempt weight reduction through diet and exercise that may prevent further fatty infiltration that may further impairher liver function. [facility] hepatology discussed liver transplant but sheis likely no longer a candidate for this given active myeloma. We chose least hepatotoxic regimen for treatment of her active myeloma with 50% dose reduction of Velcade. Liver function remained stable since start of therapy 04/10/2020. --Requested prior liver biopsy and [facility] liver clinic records. Dose reduction 20% Kyprolis due to KAPADIA with cirrhosis (normal bilirubin and transaminases). Stable LFTs on current Kyprolis/Cytoxan/Deamethasone therapy. (5) Encounter for chemotherapy management Initial Daratumumab maintenance tolerated well without significant toxicities. Bone marrow biopsy did not reveal indication for change in therapy. --09/04/2021: Repeat loading with weekly Daratumumab 16mg first 3 cycles and changed to Revlimid 5mgdaily 1-21 each 28 day cycle--02/19/2022 reviewed informed consent to change to pomalidomide next cycle. --03/19/2022. Pomalyst was stopped after 1 week of therapy on 03/13/2022. Daratumumab held 03/19/2022 due to platelet count 41,000. We resumed both medications on arrival of dose reduce Pomalyst 2 mg days 1 through 21 every 28- day cycle. -- 04/09/2022: Daratumumab is monthly maintenance. Mid July: last dose Pomalyst 2mg today with ANC 600. -- 07/30/2022: Changed chemo to Kyprolis/Cytoxan, normal baseline Echo. Will continue every 3 week therapy until progression or intolerable toxicity. (6) History of 2018 novel coronavirus disease (COVID-19) Patient had coronavirus infection encouraged her to complete vaccinations with booster. When she iscompleted all coronavirus vaccination with booster, she may be eligible for antivirals Evasheld (tixagevimab IM and cilgavimab IM) for passive immunity of coronavirus 19 infection. - Chemo Plan Chemo Plan (Dose, Rate, Freq): Palliative radiation to 02/07/2020, deferred active therapy for myeloma for 8 weeks due to current COVID-19 epidemic. Discussed at Malignant Hematology Tumor Board early March to determine optimal regimen given her comorbidities. --04/10/2020: cycle 1, day 1 weekly dexamethasone 20 mg IV (careful to watch bloodsugars with diabetes and known hepatic dysfunction), decreased dose of bortezomib 0.7 mg/m? twice weekly for 2 weeks on1 week off (decreased to once weekly after first cycle due to known liver disease and thrombocytopenia), and daratumumab 8mg/kg D1,D2 IV first week, then 16 mg/kg IV weekly --10/02/2020: Started Daratumumab monthly maintenance 16mg/kg IV (stopped Velcade and Dexamethasone) --Palliative radiation 07/31/2021 right hip --09/04/2021: Start weekly Daratumumab 16mg/kg first 3 cycles and change to Revlimid 5mg daily 1-21 each 28 day cycle--now 5mg daily D1-14 every 28 days--titrate as tolerated. --02/19/2022: Continue daratumumab 16 mg/kg every other week and changed Revlimidto pomalidomide 3 mg daily days 1 through 21 each 28-day cycle. --Pomalyst was stopped after 1 week of therapy on 03/13/2022. Daratumumab held 03/19/2022 due to platelet count 41,000. We will resume both medications on arrival of dose reduce Pomalyst 2 mg days 1 through 21 every 28-day cycle. -- 04/01/2022: Now has thrombocytopenia with platelet count 40,000. Proceeding with daratumumab 16 mg/kg IV every 2 weeks and will hold Pomalyst and change dosing to 2 mg days 1 through 14 every 28-day cycle for presumed medication related myelosuppression. Daratumumab to monthly dosing since early April had nochange in Pomalyst 2 mg days 1 through 14 every 28-day cycle. --07/10/2022: Held Pomalyst 2mg daily with held dosing 2 weeks due to worsening neutropenia. Today discussed change in therapy. --07/30/2022: Changed to Pomalyst (week 1 test dose 20mg/m2 IV, then 56mg/m2 IV weekly--dose reduction for liver dysfunction due to nonalcoholic steatohepatitis) with Cytoxan 300mg/m2 IV weekly, Dexamethasone 20mg weekly. Goal of Treatment: Palliative - Time with Patient Time Spent with Patient (Follow Up Visit): 35 minutes - Moderate complexity 35 min to review toxicities and cytopenias on carfilzomib/cytoxan/dexamethasone Coordination of Care & Counseling Time: Greater than 50% of time spent with patient was for coordination of care (as documented) and [id number] counseling of patient and/or family. Dictated By: Shannon Gallagher APRN DD/ [id number] Signed By: <Electronically signed by KEITH Gallagher> 09/21/221934 [facility] Work Phone: [phone]) 989-689611-16-2022 Progress note Author Shannon Gallagher [facility] September 21, 2022 7:35pmNote Date/TimeNovember 2021 10:18[facility] [place] [id number] Hem/Onc Follow Up Note - OP Signed Patient: Mojgan Pérez MR#: [id number] : 1955 Acct:[id number] Age/Sex: 67 / F Type: REG RCR Copies to: MD Yinka Downey MD~ Subjective Date/Time of Service: Date of Service: 09/17/2022 Time of Service: 10:18 Chief Complaint: Patient is here for a one month follow up with labs for review,prior to treatment today. Patient reports headaches. No other concerns voiced. HPI: 09/17/2022: Mojgan is here for follow-up on modified CYKLONE therapy for her multiple myeloma. Shecontinues with fatigue, but otherwise no new complaints. She has no s/s of infection, no shortness of breath, chest pain, n/v/d or other concerns. In review of her labs, her WBC are 1.4, ANC 0.6 and platelets 43,000. Per Dr. Marinelli, given no s/s of infection and she otherwise feels well, she is okfor treatment. We discussed signs to report related to infection such as fever, chills, etc. and she will call with any concerns. We will follow-up in 3wks withrepeat labs. 08/20/2022: Mojgan is here for 3-week follow-up on modified CYKLONE therapy (cyclophosphamide 300 mg/m2 IV weekly, dexamethasone 20 mg IV weekly, and carfilzomib now 56 mg/m2 IV weekly). Baseline echocardiogram 07/18/2022 showed normal ejection fraction 60 to 65%. I discussed her case with Dr. Benavidez who advised that despite her significant thrombocytopenia she should be treated withfull dose cyclophosphamide/carfilzomib and may support with transfusions as needed. The patient's lowest platelet counts were in the 30,000's after her first week of therapy but now is up to 56,000. She has not hadany clinical bleeding. She also has persistent leukopenia 1900 today with absolute neutrophil countnow 1000. At this point as long as she does not have any significant symptoms of therapy or signs of infection or active bleeding we willcontinue her current dosing. She otherwise notes mild fatigue but no other toxicities. Prior skin rash on Pomalyst has resolved. She will follow-up in 3 weeks fortoxicity check with nurse practitioner and we will order her restagingmyeloma labs with serum protein electrophoresis with immunofixation, quantitative immunoglobulins, and kappa/lambda light chain ratio. She may return sooner if new issues arise. Moderate complexity follow-up over 30 minutes to address cytopenias on CYKLONE therapy. 07/10/2022: Mojgan is here for 2-month follow-up of myeloma labs. No changes in medical history and platelet count remains in the 40-50,000 range without bleeding. We held her Pomalyst (as well as daratumumab) this week due to absolute neutrophil count of 300 without any recent infections. She previously held it for 1 week due to neutropenia, took 1 tablet, then had to hold a second week due to neutropenia. We reviewed her kappa/lambda light chain ratio which continues to progress in the wrong direction (total lambda light chains now increased from 109 to 125.7 with ratio from 0.11 to 0.08). Her progressive cytopenias and worsening light chains likely reflects progression of myeloma. We could repeat her bone marrow biopsy but her most recent bone marrow biopsy on10/09/2021 showed hypercellular bone marrow (30%) with slight megakaryocytic and granulocytic hyperplasia and only 1.5% plasma cells (Lambda restricted by flow cytometry). This likely would not change her current management and I discussedher case with Dr. Benavidez of malignant hematology who recommended considering carfilzomib (Kyprolis) with cyclophosphamide. I will contact patient to coordinate baseline echocardiogram forKyprolis and likely she will require dosereductions for her underlying hepatic dysfunction and chronic cytopenias. AfterI reviewed dosing with Dr. Benavidez and pharmacy and review her echocardiogram, jayne coordinate follow-up for change in therapy and chemotherapy consent. For now we will continue daratumumab with altered dose of Pomalyst to 2 mg twice weekly ( and Mondays) until change in therapy. I will not likely send dose reduction of Pomalyst due to planned change in therapy. Moderate complexity 35 minutes for coordination of care. 05/07/2022: Improved rash on 2 mg of Pomalyst, now mild pruritus. Platelet count is 48,000 without bleeding issues. Continues weekly prednisone. Daratumumab isnow monthly since early April. Repeat kappa/lambda light chain ratio slightly higher (106 to 109) But the upward trend is starting to flatten out. F-18 Axumin PET/CT shows no new lesions, relatively stable from 1 year ago. For now given her stable symptoms and pronounced cytopenias, we will continue her current dosing daratumumab/Pomalyst/dexamethasone. Next follow-up with me in 2 months. She will return sooner for issues arise. Moderate complexity visit over 35 minutes. 04/09/2022: Mojgan continues every 2-week durvalumab with Pomalyst now 2 mg daily (dose reduced due to diffuse rash). She is now day 14 of the cycle and isnoted to have platelet count of 40,000 (no associated mucosal bleeding, bright red blood per rectum, or hematuria). No recurrent rash on this dose. She continues her weekly prednisone. I recommended changing her schedule of Pomalyst to 2 mg daily for days 1 through 14, off days 15 through 28 cycle and continuing daratumumab. Her most recent immunoglobulins have shown a steady trend upward for lambda light chain and decrease of kappa/lambda light chain ratio, however since she is now stabilizing her dosing of daratumumab/Pomalyst/dexamethasone I recommend continuing her current dosing for1 more cycle with repeat kappa/lambda light chain ratio in another month. In addition I will set her up for F-18 Axumin PET/CT to compare to PET/CT from 1 year ago (her skeletal survey showed no lesions 6 months ago). She denies any current bone pain.She will proceed with daratumumab dose as previously orderedtoday. 03/19/2022: Mojgan is here for follow-up after adverse cutaneous reaction to her first cycle of Pomalyst. She noted that after starting her first dose of Pomalyst 3 mg daily on 03/05/2022 that about 1 week later on 03/13/2022 she had a diffuse rash all over that was pruritic with increased erythema. She did not have nausea, vomiting, constipation, diarrhea, dyspnea, or any other adverse reactions. She did have a decline of platelet count to 41,000 this week which may be due to her Pomalyst. She called the pharmacy and was instructed to discontinue Pomalyst on 03/13/2022. Her rash has mostly resolved with no furtherpruritus but she still has a few macular lesions over the legs. She has been using Benadryl and topical cortisone cream with improvement of the rash. Otherwise her laboratories are stable. She does have an increased kappa/lambda light chain ratio from 03/05/2022 but this was her first day of therapy. I recommended resuming Pomalyst at next dose level 2 mg daily as soon as new medic ation arrives for 3 weeks on 1 week off. If she has recurrent rash she will again stop and we will consider further dose adjustment. Due to her thrombocytopenia we will hold her daratumumab today andconsume with first day of Pomalyst next week. She may follow-up in about 3 to 4 weeks, possibly with virologist covering at that time. Patient expressed understanding. 02/19/2022: Mojgan is here for follow-up--no new symptoms but her platelet countdropped to 48,000 last week and we are again holding her Revlimid. She has not had any bleeding or infection recently, but she has had uptrending lambda light chains and we discussed changing her therapy from lenalidomide to pomalidomide and continuing her daratumumab which is currently every other week. Her only other concern is constipation which is likely related to her pain medications. ANC was 800 today. --Today we reviewed chemotherapy counseling for lenalidomide in combination withdaratumumab/dexamethasone (stopping Revlimid). Common toxicities were reviewed to include allergic reactions, myelosuppression, thrombosis, fatigue, nausea, vomiting, constipation, diarrhea, mouth sores, and risk of secondary malignancies. Other toxicities may include pneumonitis, neurologic, hepatic andrenal toxicities. The patient signed informed consent and will follow-up as directed. Planning a trip to [place] on March 06, therefore we will hold Revlimid until arrival of her pomalidomide, then have oral chemotherapy visit. We are starting pomalidomide at 3 mg daily days 1 through 21 every 28 days due to baseline liver dysfunction. Follow-up cycle 1 week 2. We will recheck her baseline myeloma labs on start day of pomalidomide with daratumumab. 01/22/2022: Mojgan has no new complaints. She was seen by Dr. Benavidez at for evaluation for transplant and CAR-T options but given her profound thrombocytopenia, neither of these options are felt tuyet optimal for her. She has had gradual worsening of her lambda light chains without any change of r enalfunction or hypercalcemia. Her chronic thrombocytopenia has remained in the 40-50,000 range which is lower than her prior baseline. I reviewed her options with Dr. Benavidez and it is difficult to assess best options due to her chronic thrombocytopenia but standard of care at this point would be tocontinue her daratumumab and transition from the lenalidomide to pomalidomide. We will follow closely with weekly CBCs to determine if thrombocytopenia worsens on thisregimen. I will defer changing her regimen for 1 month since she is starting a new cycle of lenalidomide and has had slow progression of her lambda light chains. She will return in 1 month and will discuss pomalidomide and signed inf ormed consent. Patient is in agreement with this plan. 12/18/2021: Mojgan is here for 3-month follow-up. She has not had any significant changes in medical history other than testing positive for coronavirus infection in early November 2021. She has not been immunized for coronavirus. She notes persistent fatigue but no bone pain. No other recent infections or bleeding episodes. She recently changed from weekly to now every 2 weeks daratumumab 16 mg/kg and remains on low-dose lenalidomide 5 mg daily for2 weeks on 1 week off due to prior thrombocytopenia worsening. October 2021 skeletal survey showed no osteolytic lesions suggestive of myeloma. Initially shehad improvement of her platelets to 70-100,000 but today platelets are down to 54,000. She also had some improvement of leukopenia but this is again down to 2800 with ANC 1300 today. Urine random M spike is not observed, but she has hadprogressive increase of her lambda light chains from 30 in December 2020 to 60.2 inDecember 2020. [place] lambda ratio has also started to decline to 0.21 in D ec2020. For now I'm continuing her daratumumab with Revlimid at current dosing, but I contacted Dr. Benavidez at [facility] for CAR-T cell eligibility. If he has recommendations to changeher therapy, I will let her know. Otherwise I will have her follow-up with me in 1 month (she will have repeat myeloma labs 1 week prior to visit). 09/20/2021: After telephone consultation with Dr. Benavidez at , we resumed repeat loading doses of weekly daratumumab 16mg/kg and changed to low dose lenalidomide 5mg daily. She has had 2 courses of antibiotics for sinus infection over the past month and was noted to have neutropenia with ANC 900, platelets 44,000 week 2 of Revlimid, therefore this was held for one week and resumed Thursday after ANC returned to 1000. Platelet counts have persisted at 40-50,000 range without active bleeding. Otherwise tolerating therapy well. Still improved hip pain and ambulation after recent course of palliative radiation therapy. For now we will continue Daratumumab with Revlimid and Dexamethasone as ordered with weekly CBC. Gradually increasing lambda light chains--pending evaluation at for CAR-T celltherapy eligibility (has not yetbeen contacted for appointment). 4 week f/u with me with CBC, CMP, and myeloma labs (follow quant immunoglobulins and [place]/Lambda light chain ratio with skeletal survey in 2 weeks so results available for appointment). 08/30/2021: Mojgan is here for 2-week follow-up for completion of her palliative radiation therapywith significant improvement of pain in her right hip and pelvis. We sent her for echocardiogram performed 08/23/2021 at [facility] [place] as baseline for possible Kyprolis therapy. This returned with ejection fraction 60% which is normal with grade 1 left ventricular diastolic dysfunction and 1+ tricuspid valve regurgitation and trace to 1+ aortic valve regurgitation.Otherwise unremarkable. I discussed her case with Dr. Benavidez of malignant hematology at [facility]. He advised against Kyprolis therapy given her underlying liver dysfunction and recommended repeating loading doses of daratumumab weekly as well as low-dose lenalidomide which we will start at 5 mg daily since she has chronic thrombocytopenia. We will send for CAR-T therapy as a possible therapeutic option. The patient agreed with changing daratumumab to weekly and we will haveher sign consent next week for change to low-dose lenalidomide therapy. Next follow-up with me will be in about 2 weeks for week 2 lenalidomide with daratumumab. 08/16/2021: One month followup, she recently completed palliative radiation therapy to right hip and pelvis. Platelet count still in 50,000 range with increased bruising but no bleeding. Still has some pain in right hip but slowlyimproving after radiation therapy. Slowly worsening lambda light chain --she is scheduled for ECHO next week. We discussed possibly changing therapy from Daratumumab, Velcade, Dexamethasone to Kyprolis, low dose lenalidomide, dexamethasone if adequate cardiac function. I will discuss this with Dr. Benavidez for dosing and determine if CAR-T therapy is another possible option (although we may be limited due to chronic thrombocytopenia and liver disease). Followup 2-3 weeks to review results and possible consent for change in therapy. 07/17/2021: 2-month follow-up on multiple myeloma. She reports that Thursday she developed severe painin the right leg that started proximal to the knee creatingit to the hip. She had increased pain with weightbearing on the right and has been using a walker at home secondary to this. She did not feel a pop or shift in ambulation, but has been using her Percocet for pain control at home. In reviewing her laboratories platelet count remains in the 52,000 range and she isotherwisPe tolerating daratumumab well. I recommended sending for right hip, femur, and knee plain film imaging that did not show any fracture. She does have a gradually rising lambda light chain but no other significant changes in her labs. I reviewed her case with Dr. Cheng of orthopedic surgery who also reviewed her priorPET/CT showing uptake in this area. We will obtain a right hip MRI, keep her completely nonweightbearing on the right leg with walker for transfers and she has an urgent orthopedic follow-up following her MRI. I will follow-up with her in 1 month to review management and we will determine if she requires prophylactic kenton for stability of the hip based on her MRI. 05/24/2021: Here to followup 05/03/2021 bone marrow biopsy--noted to have decreased cellularity 25%, flow cytometry with 0.2% plasma cells and a 1.5% monoclonalB- cell population. FISH showed 13q and 1q abnormalities but normal cytogenetics. No myelodysplasia seen. I reassured her that recent thrombocytopenia is more likely related to splenic sequestration from liver disease and not worsening myeloma. For now continue current regimen. Will alsorecheck B12, folate, and iron profile with next labs--followup in 2 months with myeloma labs, sooner prn. 04/24/2021: 1 month followup to review PET/CT. Over the past 2 days, she notes episodes of sharp left sided neck pain over sternocleidomastoid muscle and mastoid area. No radiculopathy down left upperextremity. No new side effects of Daratumumab. F18 PET/CT shows largely unchanged diffuse uptake through multiple bony sites in axial and articular skeleton. Lambda light chains risingover past 2 month and decline of platelet count to 57,000 without bleeding. MRIof thoracic spine did not show significant thoracic canal stenosis. Due to worsening neck pain with extensive uptake on F18 PET/CT--we will send for cervical MRI. Palliative medicine has increased Percocet to tid. We will repeat bone marrow biopsy due to rising lambda light chain and falling platelet count to determine if progression of myeloma noted. This will be scheduled in the next 1-2 weeks. 03/28/2021: 2 month followup for multiple myeloma. More recently notes neck andleft shoulder pain. Fatigue and constipation stable. Labs show stable anemia and thrombocytopenia. Serum M-spike now asymmetric gamma (no quantifiable spike). Slowly improving IgG to near normal. [place]/lambda light chain ratio normal with mildly increased lambda light chains. MRI of thoracic spine for evaluation of increasing left shoulder pain. For now we will continue current dosing of Daratumumab and recheck F18 PET/CT for response in late April 2021. 01/21/2021: Mojgan is accompanied by her daughter for 2 month followup--now Daratumumab maintenance. She notes persistent fatigue and recently added as needed laxatives to stool softener for management of constipation. Persistent left hand pain--correlates to an area of bone uptake on PET/CT. Overall F18 PET/CT appears stable with no new areas if FDG avidity (still extensive bone FDGuptake). We reviewed prior plain xrays of left hand from November--she agrees toevaluation by orthopedic surgery (determine if biopsy or steroid injections). M-spike and kappa/lambda light chains pending. CBC (platelets 60-70,000); CMP stable. Will followup in 2 months with exam and labs. 11/26/2020: Mojgan is accompanied by her daughter for 2 month followup--now Daratumumab maintenance. Stable leukopenia/low platelet 70,000. Notes 3 days of hematuria and mild dysuria. Sending UA and possible culture. Otherwise no new bone pain. Blood sugars stable. M-spike and kappa/lambda light chain ratiostable. Next f/u 2 months after one year f/u PET/CT to determine response to therapy. 09/24/2020: Mojgan presents (accompanied by her daughter) for cycle 8, week 2 followup [id number] mg/kg IV weekly, Dexamethasone 20mg weekly, and Velcade 0.7 mg/m? now sq once weekly for every 3-week cycle (21 days). She notes neuropathy symptoms are stable. Tolerating therapy well without fatigue. No bleeding and thrombocytopenia stable in 60-70,0000 range. On 10/02 she will be due for maintenance therapy with Daratumumab alone once per month. I will f/u with her in 2 months with myeloma labs, sooner as needed. Velcade and Dexamethasone will be stopped after 8 cycles. 08/13/2020: Mojgan is here for cycle 6, week 2 (day 14) daratumumab 16 mg/kg weekly, Velcade 0.7 mg/m? now sq once weekly for every 3-week cycle (21 days), and dexamethasone 20 mg weekly. No new symptoms--improving thrombocytopenia to 79,000 and improved leukopenia. 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 Still has improvement of M-spike, IgA normal and decreased lambda light chain and K/L ratio. We discussed that week 25 in Oct she will change to monthly daratumumab with weekly Velcade (1mg/m2) and Dexamethasone. Continue to follow every 6-8 weeks until maintenance schedule. 06/18/2020: Mojgan is here for cycle 3 week 3 (day 21) daratumumab 16 mg/kg weekly, Velcade 0.7 mg/m? now sq once weekly for every 5-week cycle (35 days), and dexamethasone 20 mg weekly. Tolerating well with stable leukopenia and thrombocytopenia. Mild increased symptoms of hand and foot neuropathy, but no limitation in activity. Now following with diabetes management clinic with variable glucosecontrol. We reviewed lower IgA (now M-spike IgG kappa after Daratumumab--previously IgA lambda). Lambda light chain has decreased from 516 to 41.3 to now 18.5 with normalization of K/L ratio. Continue followup myeloma labs in 6 weeks, visit in 8 weeks. 05/21/2020: Mojgan is here for cycle 2 (week 7 overall) daratumumab 16 mg/kg weekly, Velcade 0.7 mg/m? now sq once weekly for every 5-week cycle (35 days), and dexamethasone 20 mg weekly. Tolerating well with stable leukopenia and thrombocytopenia. No significant neuropathy. Noted to have improvement in lambda light chains. No further daratumumab infusion reactions. No infections,stable constipation, pain control improved. No other complaints. Continue monthly f/u with myeloma labs. --Diabetes management--added insulin on dexamethasone days. Hyperglycemia improving. 01/18/2020 (phone followup)--The patient's son was available by phone and her daughter was contactedin a separate phone call as patient presented unaccompanied due to COVID-19 precautions in our clinic during the current epidemic. Bone marrow biopsy results were reviewed as follows from procedure pe rformed 01/26/2020: --Bone marrow biopsy was suboptimal for evaluation. --Increased lambda light chain restricted monoclonal plasma cells (1.9% by flow cytometry, approximately 6% and aspirate count, but 50% by immunohistochemical stains [id number]). Sideroblastic iron present, negative for ring sideroblasts. Peripheral blood smear with mild red blood cell anisocytosis and polychromasia, leukopenia with absolute neutropenia (1000) and thrombocytopenia (54,000) consistent with prior baseline. Note: I discussed the results with Dr. Crook 01/26/2020. Preliminary findings were also discussed with Dr. Cummings 01/27/2020. Morphologic findings, immunohistochemical stains, flow cytometry, and ancillary studies may under represent the extent and severity of disease. The results of FISH myeloma panelwith prognostic markers and cytogenetic analysis are pending. --Given the patient's hip pain and presence of lytic lesions, she meets clinicalcriteria for activemyeloma. Given her hip pain and lytic lesions in weightbearing areas she was offered radiation therapy. She had a limited courseof hypofractionated palliative therapy to bilateral proximal femurs [address] Ahn. We discussed that given the COVID-19 epidemic and absence of othersignificant changes other than bony lesions (normal renal function, normal calcium, stable cytopenias), I would defer active therapy for myeloma for 4 to 6 weeks. Since she has significant history ofliver disease I will discuss her case with Dr. Piter Benavidez at [facility] malignant hematology for optimal regimen. The patient is not a transplant candidate given her nonalcoholic steatohepatitis and chronic thrombocytopenia but may be a candidate for either doublet therapy (Revlimid/dexamethasone) or triplet therapy with either Velcade/Revlimid/dexamethasone or daratumumab/Revlimid/dexamethasone. --02/03/2020: Mojgan presented unaccompanied for follow-up of bone marrow aspiration and biopsy performed by Dr. 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 The patient had been noting increased left hip pain over the past several months andplain films of the pelvis and bilateral femurs did show subtle lucencies in the bilateral proximal femurs corresponding to PET/CT findings but no other additional sclerotic lesions identified. No pathologic fractures were seen. --03/05/2020: Mojgan notes improvement of bilateral hip pain since radiation. No other changes in medical history in the past month--no infections, normal renal function, no hypercalcemia. Stable platelet counts without bleeding. Shewas given written literature regarding Dexamethasone, Velcade (thatwould be dose reduced to 0.7mg/m2 twice weekly), weekly Daratumumab and Revlimid, but I will defer decision of which regimen to use until discussion in malignant hematology tumor board. Also referring for infusion port placement prior to initiating therapy. Sign informed consent prior to initiating therapy. --Discussed with Dr. Benavidez who favors Daratumumab combination--will request prior liver biopsy and records from [facility] liver clinic. The patient and her son (by telephone) expressed understanding and will follow- up as directed in 2 weeks for consent and likely start of therapy. --04/02/2020: Mojgan presents after infusion port placement at [facility] by interventional radiology due to platelet count 40,000--she had increased bruising at site post procedure, but this has completely resolved. Her hip painis well controlled since completion of palliative radiation and no newareas of pain. She has previously reviewed information regarding Daratumumab (first dosesplit 8mg/kg IV D1,D2, then if well tolerated 16mg/kg IV weekly), Velcade at about 50% dose (for liver dysfunction) 0.7mg/m2 D1,D4,D8, D11, and [id number] IV weekly--repeat for every 3 week cycles 1st 3 cycles. She will take chemo class and likely start therapy within 2 weeks with toxicity visit in 3 weeks. Today we reviewed chemotherapy counseling for Daratumumab, Velcade, and Dexamethasone. Common toxicities were reviewed to include infusion reaction including rash/dyspnea/wheezing, myelosuppression, fatigue, nausea, vomiting, constipation, diarrhea, mouth sores, and alopecia. Other toxicities may in cludepneumonitis, neurologic, thromboembolism, hyperglycemia, hepatic and renal toxicities. The patient signed informed consent and will follow-up as directed. --04/19/2020: Mojgan is here for cycle 1 week 2 daratumumab 16 mg/kg weekly, Velcade 0.7 mg/m? twice weekly for first 2 weeks of every 3-week cycle, and dexamethasone 20 mg weekly. She did have an infusion reaction with first daratumumab with dyspnea and flushing but this improved after first dose and shehas not had recurrent infusion reactions. We have continued Velcade despite platelet counts in the 40,000 range without bleeding as we know that her baseline platelet counts remain in this range and she has not had any significant change from her baseline. Dexamethasone has caused hyperglycemia with blood sugars up to 400 and we are referring to diabetes management clinic. Otherwise she denies any significant nausea, emesis, fever, chills, night sweats, constipation, diarrhea, rash, mouthsores, or alopecia. She has not hadany change of baseline neuropathy. Liver function tests remain stable. She notes that her hip pain is well controlled since prior palliative radiation and she saw radiation oncology earlier this week with no new recommendations. I will send her myeloma labs including serum and urine protein electrophoresis, quantitative immunoglobulins, and serum kappa/lambda light chains in 2 weeks andfollow-up with her in 3 weeks. She may be seen sooner if new issues arise. This is a 66-year-old lady on chronic disability has a history of arthritis, diabetes mellitus, hypertension, COPD, GERD, and fibromyalgia who was previouslyfollowed [facility] for chronic mild to moderate thrombocytopenia. She states that she was followed with Dr. Kumari prior to his senior care and was told that she had an elevated protein level as well as thrombocytopenia but never had clinical bleeding. She is 4 para4 without complicationsand was never told that she was thrombocytopenic while . She is had multiple prior surgicalprocedures without any clinical bleeding. She had been recommended for a pain procedure with Dr. Wilson but he declined to do the procedure because her platelet count was less than 100,000. For this reason she received 2 platelet transfusions, with little improvement of her platelet count and her second transfusion resulted in throat tightening due to allergy to platelets . She has never been treated with steroids and has never been told that she has immune thrombocytopenia. She has mild leukopenia with relative neutropenia, absolute neutrophil count of 400-800 and mild lymphocytosis. Hemoglobin is normal. She has not had any bright red blood per rectum or epistaxis. She has no history ofbleeding within the family however does have a mother and sister diagnosed with colon cancer, a brother diagnosed with lung cancer, and another sister diagnosedwith breast cancer. She had prior pain in the right hand mainly at the first MCP joint with some associated swelling and right foot pain and was evaluated by podiatry. She was told that her blood tests were negative forgout. She had screening with MALLORY, CCP, and rheumatoid factor all of which were negative. She says that she previously saw Dr. Petersen for cirrhosis but did not know of any specific therapy. We reviewed these findings from her liver ultrasound ordered by Dr. Benavidez Summer 2016. Initial consultation with me March 16, 2017. --The patient has been followed by me for some time for diagnosis of smoldering myeloma with a prior bone marrow biopsy May 2017 showing 15% plasma cells but the patient remained asymptomatic without bone pain or other CRAB criteria for therapy. She is also noted to have an ascending aortic aneurysm and has chronicliver disease with cirrhosis secondary to nonalcoholic steatohepatitis. She haschronic thrombocytopenia without bleeding ranging from 50-100,000 this is felt to be due to sequestration from her nonalcoholic steatohepatitis. She was previously on a liver transplant list but was recently notified that she is no longer a candidate for liver transplant. She has had chronic pain from f ibromyalgia but noted increasing bilateral hip and upper thigh pain over the last 6 months. She also is followed for EGD/colonoscopy with last documented procedure 09/21/2018: 1. Normal EGD, 2. Mild sigmoid diverticulosis, 3. Internal hemorrhoids, grade 2, 4. Anal fissure with active bleeding cauterized by bipolar cautery Bone osseous survey in June 2019 showed osteopenia and degenerative changes but no lytic or blastic lesion. Patient had an F-18 PET scan 01/02/2020 which showed multiple areas of involvementof bones with increased SUV activity. She was contacted with these results by phone and I recommended bone marrow aspirate and biopsy for assessment and analysis. Her prior labs were reviewed. Her SPEP does not show anymonoclonal gammopathy. On VAHID there appears to be a trace of monoclonal gammopathy. Free light chain ratio is less than 100. There is no evidence of renal sufficiency. Patient is not anemic. She doeshave some abnormal areas on bone scan. - Summary of Therapies Summary of Therapies: 1. 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 2. She underwent a single dose of palliative radiation therapy to bilateral hips, receiving 800 cGyto right and left hip in 1 fraction in separate vaz (with a single isocenter). The treatments were given with AP/PA vaz [id number] MV photons and MLC blocks. 3. Deferred active therapy for myeloma 2 months given COVID-19 epidemic with increased risk of myelosuppression and viral transmission of contacts. --Follow-up 03/05/2020 I discussed her case with Dr. Piter Benavidez at malignant hematology. --Given her significant hepatic dysfunction, I presented her case at malignant hematology tumor board to discuss optimal therapy. 4. Cycle 1 day 1 04/10/2020: Dose reduced Velcade 0.7 mg/m? twice weekly (day 1,day 4, day 8, day 11)every 3 weeks with dexamethasone 20 mg weekly and daratumumab 16 mg/kg weekly of each 21-day cycle.After first week, Velcade decreased to 0.7mg sq weekly due to thrombocytopenia. --We will need to watch liver function, platelet count, and neuropathy closely on Velcade. 5. Cycle 9 day 1 10/02/2020: Daratumumab 16mg/kg once monthly maintenance therapy until progression. 6. 07/31/2021: Palliative radiation therapy to right supra chondral/soft tissuearea of hip which is PET positive. She received a dose of 3000 cGy in 10 fractions from 07/31/2021 to 08/15/2021 over 15 elapsed days 7. 08/30/2021: Right hip pain improved after radiation. Due to disease progression with persistent cytopenias, changed to repeat loading doses of daratumumab 16 mg/kg weekly for cycles 1 through 3 with Revlimid 5 mg daily for 3 weeks on 1 week off. Held Revlimid second week due to neutropenia with sinus infection, resumed 3 days ago (09/17/2021). Referred for CAR-T therapy evaluation. 8. 12/18/2021: Daratumumab is now 16 mg/kg every 2 weeks with Revlimid 5 mg daily for 2 weeks on 2 weeks off due to neutropenia and thrombocytopenia. Stillpending evaluation for CAR-T therapy. 9. 01/22/2022: Patient is not deemed a candidate for stem cell transplant or CAR- T therapy at this time. Discussed changing from current Revlimid to pomalidomide with continued daratumumab 16 mg/kg every 2 weeks. Plan change in therapy in 1 month. 10. 02/19/2022: Continue daratumumab 16 mg/kg IV every 2 weeks and changed to pomalidomide now 3 mg daily days 1 through 21 of each 28-day cycle (lower dose due to baseline liver dysfunction) -- 03/19/2022: Patient was noted to tolerate Pomalyst only 1 week (03/05- 03/13/2022)due to grade 3 rash. This resolved after stopping medication 1 week later. 1 dose level reduction Pomalyst to 2 mg daily days 1 through 21 of each 28-day cycle. Also holding daratumumab daily for platelet count of 41,000 and will resume at full dose with first dose of Pomalyst. -- 04/09/2022: Platelet 40,000 without bleeding. Will continue monthly Daratumumab with change of Pomalyst to 2mg D1-14 each 28 day cycle (off 2 weeks due to low platelets). Rising lambda light chains,unable to tolerate Pomalyst due to cytopenias, stopped mid 07/2022. 11. 07/18/2022: carfilzomib (dose 20mg/m2 day one then 56mg/m2 D8, D15) with cyclophosphamide 300mg IV weekly and weekly dexamethasone. Baseline echocardiogram EF 60-65%. We will follow closely for her chronic cytopenias andliver dysfunction. ROS Details: All systems reviewed & no additional complaints except as documented PMFSH - Medical History Medical History: Medical History (Last Reviewed 08/20/22 @ 10:58 by Fabiola Marinelli MD) Aortic aneurysm COPD (chronic obstructive pulmonary disease) Diabetes Fibromyalgia GERD (gastroesophageal reflux disease) Hypertension Iron deficiency Multiple myeloma Neutropenia Smoldering multiple myeloma (SMM) Smoldering myeloma Temporary low platelet count - Surgical History Surgical History: Surgical History (Last Reviewed 08/20/22 @ 10:58 by Fabiola Marinelli MD) H/O: hysterectomy History of appendectomy History of cholecystectomy - Social History Smoking Status: Former smoker Tobacco Type: cigarettes Substance Use Type: None Social History Comments: Lives with son a [facility] Home Medications & Allergies Allergies erythromycin base [From E-Mycin] Allergy (Verified 08/20/22 10:47) Hives latex Allergy (Verified 08/20/22 10:47) Unknown Reaction moxifloxacin [From Avelox] Allergy (Verified 08/20/22 10:47) Hives Quinolones Allergy (Verified 08/20/22 10:47) Unknown Reaction tetracycline Allergy (Verified 08/20/22 10:47) Unknown Reaction Home Medications carvedilol 12.5 mg tablet 12.5 mg PO BID 11/20/17 [History Confirmed 08/20/22] duloxetine 60 mg capsule,delayed release 60 mg PO DAILY 11/20/17 [History Confirmed 08/20/22] insulin detemir U-100 100 unit/mL (3 mL) subcutaneous pen 26 units subcut QHS 11/20/17 [History Confirmed 08/20/22] oxycodone 10 mg tablet 10 mg PO TID PRN Pain 11/20/17 [History Confirmed 08/20/22] albuterol sulfate 90 mcg/actuation aerosol inhaler 2 puff inhalation Q6H PRN Shortness Of Breath 11/24/17 [History Confirmed 08/20/22] fluticasone 250 mcg-salmeterol 50 mcg/dose blistr powdr for inhalation (Advair Diskus) 1 inh inhalation Q12H PRN Shortness Of Breath 11/24/17 [History Confirmed 08/20/22] omeprazole magnesium 20 mg tablet,delayed release (Prilosec OTC) 40 mg PO DAILY 11/24/17 [History Confirmed 08/20/22] cholecalciferol (vitamin D3) 25 mcg (1,000 unit) capsule (Vitamin D3) 1,000 unitPO DAILY 04/13/19 [History Confirmed 08/20/22] metformin 500 mg tablet,extended release 24 hr 500 mg PO BID 03/05/20 [History Confirmed 08/20/22] ondansetron HCl 8 mg tablet (Zofran) 8 mg PO TID PRN Nausea #30 tabs 04/02/20 [Rx Confirmed 08/20/22] insulin NPH isoph U-100 human 100 unit/mL subcutaneous suspension (Novolin N NPHU-100 Insulin isophane) 20 unit subcut DIRECTED 05/21/20 [History Confirmed 08/20/22] nystatin 100,000 unit/mL oral suspension 100,000 unit buccal DAILY oral pain 90 days #500 mL 06/18/20 [Rx Confirmed 08/20/22] semaglutide 0.25 mg or 0.5 mg (2 mg/1.5 mL) subcutaneous pen injector (Ozempic) 0.5 mg subcut QWEEK09/24/20 [History Confirmed 08/20/22] cyanocobalamin (vitamin B-12) 5,000 mcg capsule 5,000 mcg PO QWEEK 10/29/20 [History Confirmed 08/20/22] vitamin B12 0.5 mg-folic acid 1 mg tablet 1 tab PO DAILY 03/28/21 [History Confirmed 08/20/22] diazepam 5 mg tablet (Valium) 5 mg PO DIRECTED 1 day #2 tabs 07/17/21 [Rx Confirmed 08/20/22] gabapentin 300 mg tablet 600 mg PO TID 07/26/21 [History Confirmed 08/20/22] acyclovir 400 mg tablet 400 mg PO BID 90 days #180 tabs 12/24/21 [Rx Confirmed 08/20/22] dexamethasone 4 mg tablet 20 mg PO ONCE 90 days #60 tabs 03/26/22 [Rx Confirmed 08/20/22] lactulose 20 gram/30 mL oral solution 20 g (30 mL) PO BID PRN Constipation #600 mL 04/09/22 [Rx Confirmed 08/20/22] ondansetron 8 mg disintegrating tablet 8 mg PO Q8H PRN Nausea #30 tabs 06/04/22 [Rx Confirmed 08/20/22] pomalidomide 2 mg capsule (Pomalyst) 2 mg PO DAILY 28 days #14 caps 06/24/22 [Rx Confirmed 08/20/22] dexamethasone 4 mg tablet 40 mg PO ONCE #40 tabs 07/14/22 [Rx Confirmed 08/20/22] dexamethasone 4 mg tablet 40 mg PO ONCE #40 tabs 08/15/22 [Rx Confirmed 08/20/22] potassium chloride 10 mEq capsule,extended release 10 meq PO DAILY #30 caps 08/18/22 [Rx Confirmed 08/20/22] Objective - Height/Weight Height/Weight: Height 5 ft 2.99 in Weight 83.8 kg BSA for Today's Weight 1.92 - Vital Signs Vital Signs: 09/17/22 09:57 Temperature 98 F Pulse Rate [Left Brachial] 86 Respiratory Rate 20 Blood Pressure [Right Arm] 137/90 02 Sat by Pulse Oximetry 100 Oxygen Delivery Method Room Air - Pain Generalized Pain Intensity: 3 Bilateral Hip Pain Intensity: 5 Left Hip Pain Intensity: 4 Lower Back Pain Intensity: 7 Left Neck Pain Intensity: 4 Back Pain Intensity: 0 Right Thigh Pain Intensity: 3 Bilateral Leg Pain Intensity: 5 Generalized Head Pain Intensity: 4 Bilateral Shoulder Pain Intensity: 6 Left index finger Pain Intensity: 4 - Distress Screening Distress Screen Results: RN Distress Screening Start: 02/07/20 10:17 Freq: Status: Complete Protocol: Document 05/01/20 09:33 DB (Rec: 05/01/20 09:33 DB [id number]) Distress Screening Distress Score: 0 No worry/distress Distress Screening Total 0 RN Distress Screening Start: 07/26/21 12:37 Freq: Status: Active Protocol: Document 07/26/21 13:20 DB (Rec: 07/26/21 13:20 DB [id number]) Distress Screening Distress Score: 2 Physical Concerns Pain Distress Screening Total 2 Physical Exam Narrative: Patient is alert and oriented x3. HEAD / FACE: Normocephalic. No tenderness to palpation over scalp, no sinus tenderness to palpation. EYES: Pupils are equal and reactive to light. Conjunctivae and lids are benign in appearance. Ocular movement intact. EARS: Hearing grossly intact. NOSE / MOUTH / THROAT: Nose, mouth, tongue and oropharynx exam without visible lesion. NECK / THYROID: No cervical adenopathy on exam. Thyroid is symmetrical, withoutthyromegaly, masses or palpable nodules. LYMPHATIC: No palpable cervical, supraclavicular, axillary, or inguinal adenopathy. RESPIRATORY: Normal inspection. Lungs clear to auscultation and percussion. No wheezing, rales, rhonchi or rubs. Normal effort. Right chest wall infusion portwithout erythema. CARDIOVASCULAR: Regular rate and rhythm. No murmurs, gallops, or rubs. ABDOMEN: Bowel sounds normoactive. Soft, nontender and non-distended. No hepatosplenomegaly. No masses. INTEGUMENTARY: The skin is unremarkable. Resolved lower extremity macular rash.No suspicious lesions. No bruising or petechiae noted. MUSCULOSKELETAL: Normal musculature, normal ROM upper and lower extremities, no crepitus. EXTREMITIES: Trace bilateral leg edema. No cyanosis or clubbing. NEUROLOGICAL: Alert and oriented. Cranial nerves intact. No gross motor or sensory deficits, patient ambulates unassisted. PSYCHIATRIC: No anxiety or evidence of depression. Results - Labs Labs: Diagram of Most Recent CBC and CMP 09/16/22 10:12 09/16/22 10:12 Labs - Last 7 Days 09/16/22 10:12: PHA Creatinine Clear 69.98, Sodium 137, Potassium 3.6, Chloride 105, Carbon [id number], Anion Gap 8.8, BUN 12, Creatinine 0.43 L, Est GFR ( Amer) > 60, Est GFR (Non-Af Amer) > 60, Glucose 102 H, Calcium 8.4, Total Bilirubin 1.0, AST 32, ALT 29, Alkaline Phosphatase 97H, Total Protein 4.8 L, Albumin 3.0 L, Globulin 1.8, Albumin/Globulin Ratio 1.7 09/16/22 10:12: Corrected WBC 1.4 L, Uncorrected WBC Count 1.4 L, RBC 3.04 L, Hgb 10.4 L, Hct 31.3 L, MCV 103.3 H, MCH 34.4 H, MCHC 33.3, RDW 17.8 H, Plt Count 43 L, MPV 8.4, Neut % (Auto) 45.3, Lymph % (Auto) 35.7, Hodgeman % (Auto) 16.8, Eos % (Auto) 2.0, Baso % (Auto) 0.2, Neut # (Auto) 0.6 L, Lymph# (Auto) 0.5 L, [place] # (Auto) 0.2, Eos # (Auto) 0.0, Baso # (Auto) 0.0, Nucleated RBC % (auto) 0.1,Platelet Estimate Decreased L, Plt Morphology Comment Normal, RBC Morphology N/A, Polychromasia Slight, Anisocytosis Slight, Macrocytosis Slight 09/12/22 14:00: PHA Creatinine Clear 69.98, Sodium 138, Potassium 3.9, Chloride 105, Carbon [id number], Anion Gap 10.1, BUN 13, Creatinine 0.50, Est GFR ( Amer) > 60, Est GFR (Non-Af Amer) > 60, Glucose 107 H, Calcium 8.6, Total Bilirubin 1.2, AST 27, ALT 27, Alkaline Phosphatase 94 H, Total Protein 4.7 L, Albumin 3.0 L, Globulin 1.7, Albumin/Globulin Ratio 1.8 09/12/22 14:00: Corrected WBC 1.2 L, Uncorrected WBC Count 1.2 L, RBC 3.03 L, Hgb 10.4 L, Hct 31.4 L, MCV 103.6 H, MCH 34.4 H, MCHC 33.2, RDW 18.2 H, Plt Count 41 L, MPV 8.6, Neut % (Auto) N/A, Lymph% (Auto) N/A, Hodgeman % (Auto) N/A, Eos % (Auto) N/A, Baso % (Auto) N/A, Neut # (Auto) N/A, Lymph # (Auto) N/A, Hodgeman# (Auto) N/A, Eos # (Auto) N/A, Baso # (Auto) N/A, Nucleated RBC % (auto) 0.1, Band Neutrophils % 1, Lymphocytes % 43 H, Monocytes % 13 H, Eosinophils % 1, Metamyelocytes % 1 H, Segmented Neutrophils 38 L, Reactive Lymphocytes 3, Platelet Estimate Decreased, Large Platelets Slight, PltMorphology Comment N/A,RBC Morphology N/A, Anisocytosis S, Macrocytosis Slight, Ovalocytes Slight, Schistocytes Slight 09/12/22 14:00: IgG 323 L, IgA 20 L, IgM 8 L, Free [place] LC, Quant 6.5, Free Lambda LC, Quant 44.3 H, Free [place]/Lambda Ratio 0.15 L 09/09/22 14:05: IgG 333 L, IgA 20 L, IgM 9 L, Free [place] LC, Quant 6.9, Free Lambda LC, Quant 40.2 H, Free [place]/Lambda Ratio 0.17 L Assessment and Plan - TNM Staging Staging: Stage IIIA Multiple Myeloma (Durie Boring criteria) (1) Multiple myeloma Qualifiers: Multiple myeloma remission status: not in remission Qualified Code(s): C90.00 - Multiple myeloma not having achieved remission Mojgan 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 She has high risk cytogenetics and I [facility]. Her persistent thrombocytopenia made her ineligible for any clinical trials, and preventedher from receiving local pain procedures given her chronic low back pain. --05/2017 PET/CT images and reports performed for staging to exclude bone involvement with myeloma. 2 indeterminate areas of uptake thought to be degenerative arthritis vs early bone findings of myeloma (right parietooccipitalarea and upper sternum). She has remained asymptomatic [...] showed no lytic lesions and she has stableshoulder, hand, and right SI joint pain (although likely due to fibromyalgia. --Prior osseous survey 07/01/2019 showed osteopenia but no compression fractures or lytic lesions were identified. She had no significant change in myeloma labs(mild increase of urine M-spike, kappa/lambda ratio, and normal serum M- spike and quant immunoglobulins). Urine protein still undetectable, therefore will continue surveillance every 6 months with the same labs--no hypercalcemia, renaldysfunction (or proteinuria), anemia, or new bone symptoms. [...] proteins with urine M spike 43.1 but totalprotein 34.4, with no reported urine creatinine. --We deferred immunosuppressive chemotherapy for about 1 month due to control ofsymptoms after palliative radiation and concern of potential peak of COVID-19 inlate January early March. --She presented for follow-up 03/05/2020 and we discussed potential therapy options (with son available by phone). --I discussed her case with Dr. Piter Benavidez of malignant hematology, possibly presenting the patient in hematology tumor board at [facility]. --Infusion port placed 03/22/2020 at [facility] due to low platelets. No complications. --03/12/2020: Myeloma labs with no serum M-spike, + urine M spike 22.2mg/24h (14%). Immunofixation IgA lambda specificity. IgA normal 227, Serum kappa 20.6, serum lambda 516.7, Free kappa/lambda ratio0.04. Normal renal function and calcium. Lower ANC 600 and platelets 40,000 --04/10/2020: Started cycle 1 day 1 of weekly dexamethasone 20 mg IV (careful to watch blood sugars with diabetes and known hepatic dysfunction), decreased dose of bortezomib 0.7 mg/m? twice weekly for2 weeks on 1 week off (due to known liver disease and thrombocytopenia), and daratumumab 8mg/kg D1,D2 IV first week,then 16 mg/kg IV weekly and we may consider Revlimid as a 4th medication if needed (deferred for worsening neutropenia and thrombocytopenia--I am reluctant to add this therapy initially). --------- --01/21/2021: One year f/u F18 PET/CT with stable FDG avidity, monoclonal labs (SPEP, Quant Igs, kappa/lambda ratio) all pending. Stable CBC and CMP. Persistent pain left hand 2nd MCP joint--increaseduptake on PET/CT but no lesion on left hand xray from 11/2020. Sending for ortho evaluation. For nowcontinue once monthly Daratumumab. F/u with myeloma labs and exam in 2 months, sooner prn. --05/24/2021: Bone marrow biopsy does not show significant progression although poor prognosis mutation 1q with 13q on FISH. Hypocellular with recent worseningplatelets without bleeding--will recheck B12, folate, and ferritin. [...] sent for plain films of the hip femurand knee showing degenerative changes but no acute [...] progression although she still has slow rise inlambda light chain and platelet count remains in [...] check. She will sign Revlimid consent Thursday. Sheis in agreement with this plan. --09/20/2021: Started daratumumab loading doses weekly with Revlimid on 09/04/2021. Held therapy forANC 900 and platelet 42,000 with sinus infection, now resolved and resumed Revlimid 5mg daily on 09/17. Will continue therapy as prescribed with weekly CBC and hold Revlimid as needed for cytopenias.Evaluation for CAR[facility]T therapy at [facility]. Send myeloma labs and skeletal survey [...] current cycle of Revlimid with change to pomalidomide4 mg daily, follow weekly CBCs after change in therapy and determine optimal dose based on symptomsand cytopenias. Patient is in agreement with this plan. Next follow-up with me in 1 month and we will defer next light chain analysis until 1 month after change in therapy. --02/19/2022: Continued rise in lambda light chains and worsening thrombocytopenia. Today we reviewed informed consent for adding pomalidomide 3 mg daily days 1 through 21 every 28 cycle 2 every otherweek daratumumab. We are dropping Revlimid due to [...] initial cycle was only given 03/05-03/13/2022. Now yamile has complete resolution of symptoms she may resume pomalidomide at 1 dose level reduction 2 mg daily for days 1 through 21 of each 28-day cycle. We are also holding her daratumumab today due to declining her platelet count 41,000 without bleeding. Repeat kappa/lambda light chain ratio was increased 80 on 5 4but this was her first dose of pomalidomide. Plan anticipate arrival of pomalidomide within the next 1 to 2 weeks and she may resume daratumumab on day1 of therapy. Her next follow-up will be [...] for following myeloma show normal mild increase herfree lambda from 87 to 106, kappa/lambda ratio decreased 0.10-0.09. I will give her 1 more month ofpomalidomide with daratumumab and dexamethasone. The pomalidomide dose will be changed to 2 mg p.o.days 1 through 14, off days 15 through [...] bony lesions. Her kappa/lambda light chain ratio remainsrelatively stable since early March (0.09-0.11) with free lambda light chainsnow relatively stable (106-109). I advised continuing her current regimen and reevaluating with kappa/lambda light chain ratio in 2 months. Continue current dosing and close observation due to platelet count 48,000. No signs or symptomsof infection. Patient is in agreement with this plan. --07/10/2022: Mojgan has no new symptoms, but continued cytopenias with 2 weeks of pomalidomide helddue to recurrent neutropenia and persistent thrombocytopenia (40-50,000). Continued uptrending lambda light chains consistent with progression of myeloma. We did discuss bone marrow biopsy, but this would not policy change clerk, therefore we will give Pomalyst (now decreasedto 2mg Thursday and only) with last dose Daratumumab tomorrow. 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 Will f/u ECHO and consent for therapy tomorrow. Plan discussed with Dr. Benavidez Malignant Hematology--recommends no dose reduction of Cytoxan, but transfusion support as needed since cytopenias may be due to progression of malignancy. --08/20/2022: Mojgan is here for cycle 2 day 1 of Carfilzomib 56mg/m2 IV weekly, Cyclophosphamide 300mg/m2 IV weekly, and Dexamethasone 20mg IV/po weekly. Tolerating well without new side effects. Stable fatigue, no bleeding. Mild improvement of platelets without active bleeding, stable WBC with ANC 1000. 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 --09/17/2022: Mojgan is here for cycle 3 of modified CYKLONE regimen. She continues to do ok with only mild fatigue, no other new complaints or s/s of infection. She is ok to treat per discussion with Dr. Marinelli despite low WBC, ANCand platelets. She will follow-up in 3 weeks with next cycle, sooner as needed. 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 I previously reviewed her outpatient records from [facility], including review of notes, laboratories, and prior bone marrow biopsy 13 years ago. 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 Most recent platelet count is relatively stable at 54,000 but no clinical bleeding. She waspreviously referred to weight reduction clinic and may have slow improvement of steatohepatitis with lifestyle modification. Unless she has active bleeding or planned surgery, we will continue observation during treatment of active myelomato commence next month as noted above. --Agree with recommendation for EGD surveillance for varices (last was 09/2018--negative). This will be deferred during current COVID-19 epidemic. --Prior vitamin B12 and folic acid are normal, for known history of neuropathy. As noted above, I reviewed the negative M spike on serum protein electrophoresiswith immunofixation, but positive for Bence Murray protein on urine protein electrophoresis. Her Quantitative immunoglobulins IgG, IgA, and I gM were all within normal limits, however her serum kappa lambda light chain analysis showeda predominance of lambda light chains. --Previous labs for lupus anticoagulant with DRVVT, hexagonal phase phospholipid, anti-cardiolipin IgG and IgA, and beta 2 glycoprotein IgG and IgA were within normal limits. --Evaluated in ED November 2019 for epistaxis which resolved. Platelet count wasstable at 12/28/2019 follow-up. She continues surveillance with liver clinic at [facility] and I will continue to follow her every 6 months, sooner if newbleeding issues arise. --04/02/2020: We reviewed informed consent for Daratumumab/Velcade/Dexamethasone for active myeloma therapy. I requested prior liver biopsy results and notes from liver clinic at [facility]. Platelet count in 40,000 range but patient has had no active bleeding following infusion port placement 03/22/2020. --08/13/2020: Cycle 6 week 2 toxicity check with improved thrombocytopenia 79,000 range with no bleeding. We will continue current dosing with Velcade 0.7mg/m2 sq (now once weekly), dexamethasone 20 mg weekly, and full dose daratumumab with close follow-up of liver function and platelet counts. --09/24/2020, 01/21/2021, 03/28/2021: Platelets stable 60-70,000 with no new toxicities, started Daratumumab maintenance 10/02/2020. --04/24/2021: Platelets now down to 57,000 with rising lambda light chains. Will eval with repeat bone marrow biopsy due to nonsecretory myeloma. --05/24/2021: Bone marrow hypocellular without significant myeloma progression. Normal B12/folate stores, continue Daratumumab maintenance. --08/16/2021: Persistent thrombocytopenia in 50,000 range, consider change in therapy due to risinglambda light chains. Will check echo and review case withDr. Benavidez at to discuss next line of therapy. --08/30/2021: Stable platelets--decision to resume weekly Daratumumab 16mg first 3 cycles and change to Revlimid 5mg daily 1-21 each 28 day cycle--titrate as tolerated --09/20/2021: Platelets have declined to 40-50,000 range without mucosal bleeding. Held Revlimid atplatelets 42,000 during sinus infection, resumed after one week off. Will follow weekly CBCs on Daratumumab/Revlimid. --12/18/2021, 01/22/2022: Platelets still in the 50,000 range without mucosal bleeding. Current dosing of daratumumab every 2 weeks and Revlimid 5 mg daily 2weeks on 2 weeks off--plan to change to pomalidomide 3 mg daily next cycle. -- 02/19/2022: Last week platelets were 48,000 and we held Revlimid. This week platelets 58,000 but continuing to hold Revlimid due to change to daratumumab 16mg/kg IV every 2 weeks with pomalidomide 3 mg daily days 1 through 21 every 28-day cycle -- 03/19/2022: Platelets were down to 41,000 and we held daratumumab as well as Pomalyst for rash asnoted above. Resume Pomalyst at 2 mg days 1 through 21 every 28 days. Continue daratumumab 16 mg/kgevery 2 weeks. -- 04/09/2022: Platelets down to 40,000. Okay to give daratumumab 16 mg/kg IV every 2 weeks but Pomalyst dose will be changed to 2 mg days 1 through 14 every 28 days. Follow-up 1 month. -- 05/07/2022: Platelets 48,000. Continue monthly daratumumab 16mg/kg IV with same Pomalyst dose 2mg daily D1-14 every 28 days. Extend next follow-up with kappa/lambda light chain ratio to 2 months. --07/10/2022: Platelets 53,000 with ANC now 600 (held Pomalyst one week for ANC 300). May have one dose Pomalyst today, then hold for change in therapy. Will have platelet transfusion as needed for change in therapy to Kyprolis/Cytoxan/Deamethasone. --08/20/2022: Platelets declined to mid 30,000 range about 4 weeks ago--now up to 56,000 and WBC 1600 and ANC 1000 on Kyprolis/Cytoxan/Deamethasone. No activebleeding. Continue current dosing and f/uin 3 weeks. --09/17/2022: Platelets at 43,000 without recent transfusion. WBC and ANC at 1.4and 600 respectively. Will continue with treatment. (3) Cancer-related pain Improved symptoms after palliative radiation to bilateral hips--one dose 02/07/2020. Will continue tofollow on myeloma chemotherapy. Extensive, but stable boneinvolvement on F-18 PET/CT 12/2020 and 04/2021. Recent increased left neck and shoulder pain. Increased oxycodone dosing to three times daily, no unusual right hip pain is noted above--followed by palliative medicine. -Completed right hip radiation with persistent but improved pain--no new pain issues with follow-upvisit with radiation in early March 2022, follow-up as needed. Will continue to follow with palliative medicine. 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 [facility] through diet and exercise that may prevent further fatty infiltration that may further impairher liver function. [facility] hepatology discussed liver transplant but sheis likely no longer a candidate for this given active myeloma. We chose least hepatotoxic regimen for treatment of her active myeloma with 50% dose reduction of Velcade. Liver function remained stable since start of therapy 04/10/2020. --Requested prior liver biopsy and [facility] liver clinic records. Dose reduction 20% Kyprolis due to KAPADIA with cirrhosis (normal bilirubin and transaminases). Stable LFTs on current Kyprolis/Cytoxan/Deamethasone therapy. (5) Encounter for chemotherapy management Initial Daratumumab maintenance tolerated well without significant toxicities. Bone marrow biopsy did not reveal indication for change in therapy. --09/04/2021: Repeat loading with weekly Daratumumab 16mg first 3 cycles and changed to Revlimid 5mgdaily 1-21 each 28 day cycle--02/19/2022 reviewed informed consent to change to pomalidomide next cycle. --03/19/2022. Pomalyst was stopped after 1 week of therapy on 03/13/2022. Daratumumab held 03/19/2022 due to platelet count 41,000. We resumed both medications on arrival of dose reduce Pomalyst 2 mg days 1 through 21 every 28- day cycle. -- 04/09/2022: Daratumumab is monthly maintenance. Mid July: last dose Pomalyst 2mg today with ANC 600. -- 07/30/2022: Changed chemo to Kyprolis/Cytoxan, normal baseline Echo. Will continue every 3 week therapy until progression or intolerable toxicity. (6) History of 2019 novel coronavirus disease (COVID-19) Patient had coronavirus infection encouraged her to complete vaccinations with booster. When she iscompleted all coronavirus vaccination with booster, she may be eligible for antivirals Evasheld (tixagevimab IM and cilgavimab IM) for passive immunity of coronavirus 19 infection. - Chemo Plan Chemo Plan (Dose, Rate, Freq): Palliative radiation to 02/07/2020, deferred active therapy for myeloma for 8 weeks due to current COVID-19 epidemic. Discussed at [facility] early March to determine optimal regimen given her comorbidities. --04/10/2020: cycle 1, day 1 weekly dexamethasone 20 mg IV (careful to watch bloodsugars with diabetes and known hepatic dysfunction), decreased dose of bortezomib 0.7 mg/m? twice weekly for 2 weeks on1 week off (decreased to once weekly after first cycle due to known liver disease and thrombocytopenia), and daratumumab 8mg/kg D1,D2 IV first week, then 16 mg/kg IV weekly --10/02/2020: Started Daratumumab monthly maintenance 16mg/kg IV (stopped Velcade and Dexamethasone) --Palliative radiation 07/31/2021 right hip --09/04/2021: Start weekly Daratumumab 16mg/kg first 3 cycles and change to Revlimid 5mg daily 1-21 each 28 day cycle--now 5mg daily D1-14 every 28 days--titrate as tolerated. --02/19/2022: Continue daratumumab 16 mg/kg every other week and changed Revlimidto pomalidomide 3 mg daily days 1 through 21 each 28-day cycle. --Pomalyst was stopped after 1 week of therapy on 03/13/2022. Daratumumab held 03/19/2022 due to platelet count 41,000. We will resume both medications on arrival of dose reduce Pomalyst 2 mg days 1 through 21 every 28-day cycle. -- 04/01/2022: Now has thrombocytopenia with platelet count 40,000. Proceeding with daratumumab 16 mg/kg IV every 2 weeks and will hold Pomalyst and change dosing to 2 mg days 1 through 14 every 28-day cycle for presumed medication related myelosuppression. Daratumumab to monthly dosing since early April had nochange in Pomalyst 2 mg days 1 through 14 every 28-day cycle. --07/10/2022: Held Pomalyst 2mg daily with held dosing 2 weeks due to worsening neutropenia. Today discussed change in therapy. --07/30/2022: Changed to Pomalyst (week 1 test dose 20mg/m2 IV, then 56mg/m2 IV weekly--dose reduction for liver dysfunction due to nonalcoholic steatohepatitis) with Cytoxan 300mg/m2 IV weekly, Dexamethasone 20mg weekly. Goal of Treatment: Palliative - Time with Patient Time Spent with Patient (Follow Up Visit): 35 minutes - Moderate complexity 35 min to review toxicities and cytopenias on carfilzomib/cytoxan/dexamethasone Coordination of Care & Counseling Time: Greater than 50% of time spent with patient was for coordination of care (as documented) and [id number] counseling of patient and/or family. Dictated By: Shannon Gallagher APRN DD/ [id number] Signed By: <Electronically signed by KEITH Gallagher> 11/1932 [facility] Work Phone: [phone]) 674-509710-19-2022 Progress note Author Fabiola Marinelli [facility] August 20, 2022 5:31pmNote Date/TimeOct2021 10:55[facility] at [address] [address] Hem/Onc Follow Up Note - OP Signed Patient: Mojgan Pérez MR#: [id number] : 1955 Acct:[id number] Age/Sex: 66 / F Type: REG RCR Copies to: MD Yinka Downey MD~ Subjective Date/Time of Service: Date of Service: 08/20/2022 Time of Service: 10:55 Chief Complaint: Patient is here today for for 6 week follow up visit for multiple myeloma and go over labs and echo HPI: 08/20/2022: Mojgan is here for 3-week follow-up on modified CYKLONE therapy (cyclophosphamide 300 mg/m2 IV weekly, dexamethasone 20 mg IV weekly, and carfilzomib now 56 mg/m2 IV weekly). Baseline echocardiogram 07/18/2022 showed normal ejection fraction 60 to 65%. I discussed her case with Dr. Benavidez who advised that despite her significant thrombocytopenia she should be treated withfull dose cyclophosphamide/carfilzomib and may support with transfusions as needed. The patient's lowest platelet counts were in the 30,000's after her first week of therapy but now is up to 56,000. She has not hadany clinical bleeding. She also has persistent leukopenia 1900 today with absolute neutrophil countnow 1000. At this point as long as she does not have any significant symptoms of therapy or signs of infection or active bleeding we willcontinue her current dosing. She otherwise notes mild fatigue but no other toxicities. Prior skin rash on Pomalyst has resolved. She will follow-up in 3 weeks fortoxicity check with nurse practitioner and we will order her restagingmyeloma labs with serum protein electrophoresis with immunofixation, quantitative immunoglobulins, and kappa/lambda light chain ratio. She may return sooner if new issues arise. Moderate complexity follow-up over 30 minutes to address cytopenias on CYKLONE therapy. 07/10/2022: Mojgan is here for 2-month follow-up of myeloma labs. No changes in medical history and platelet count remains in the 40-50,000 range without bleeding. We held her Pomalyst (as well as daratumumab) this week due to absolute neutrophil count of 300 without any recent infections. She previously held it for 1 week due to neutropenia, took 1 tablet, then had to hold a second week due to neutropenia. We reviewed her kappa/lambda light chain ratio which continues to progress in the wrong direction (total lambda light chains now increased from 109 to 125.7 with ratio from 0.11 to 0.08). Her progressive cytopenias and worsening light chains likely reflects progression of myeloma. We could repeat her bone marrow biopsy but her most recent bone marrow biopsy on10/09/2021 showed hypercellular bone marrow (30%) with slight megakaryocytic and granulocytic hyperplasia and only 1.5% plasma cells (Lambda restricted by flow cytometry). This likely would not change her current management and I discussedher case with Dr. Benavidez of malignant hematology who recommended considering carfilzomib (Kyprolis) with cyclophosphamide. I will contact patient to coordinate baseline echocardiogram forKyprolis and likely she will require dosereductions for her underlying hepatic dysfunction and chronic cytopenias. AfterI reviewed dosing with Dr. Benavidez and pharmacy and review her echocardiogram, paulwill coordinate follow-up for change in therapy and chemotherapy consent. For now we will continue daratumumab with altered dose of Pomalyst to 2 mg twice weekly ( and Mondays) until change in therapy. I will not likely send dose reduction of Pomalyst due to planned change in therapy. Moderate complexity 35 minutes for coordination of care. 05/07/2022: Improved rash on 2 mg of Pomalyst, now mild pruritus. Platelet count is 48,000 without bleeding issues. Continues weekly prednisone. Daratumumab isnow monthly since early April. Repeat kappa/lambda light chain ratio slightly higher (106 to 109) But the upward trend is starting to flatten out. F-18 Axumin PET/CT shows no new lesions, relatively stable from 1 year ago. For now given her stable symptoms and pronounced cytopenias, we will continue her current dosing daratumumab/Pomalyst/dexamethasone. Next follow-up with me in 2 months. She will return sooner for issues arise. Moderate complexity visit over 35 minutes. 04/09/2022: Mojgan continues every 2-week durvalumab with Pomalyst now 2 mg daily (dose reduced due to diffuse rash). She is now day 14 of the cycle and isnoted to have platelet count of 40,000 (no associated mucosal bleeding, bright red blood per rectum, or hematuria). No recurrent rash on this dose. She continues her weekly prednisone. I recommended changing her schedule of Pomalyst to 2 mg daily for days 1 through 14, off days 15 through 28 cycle and continuing daratumumab. Her most recent immunoglobulins have shown a steady trend upward for lambda light chain and decrease of kappa/lambda light chain ratio, however since she is now stabilizing her dosing of daratumumab/Pomalyst/dexamethasone I recommend continuing her current dosing for1 more cycle with repeat kappa/lambda light chain ratio in another month. In addition I will set her up for F-18 Axumin PET/CT to compare to PET/CT from 1 year ago (her skeletal survey showed no lesions 6 months ago). She denies any current bone pain.She will proceed with daratumumab dose as previously orderedtoday. 03/19/2022: Mojgan is here for follow-up after adverse cutaneous reaction to her first cycle of Pomalyst. She noted that after starting her first dose of Pomalyst 3 mg daily on 03/05/2022 that about 1 week later on 03/13/2022 she had a diffuse rash all over that was pruritic with increased erythema. She did not have nausea, vomiting, constipation, diarrhea, dyspnea, or any other adverse reactions. She did have a decline of platelet count to 41,000 this week which may be due to her Pomalyst. She called the pharmacy and was instructed to discontinue Pomalyst on 03/13/2022. Her rash has mostly resolved with no further pruritus but she still has a few macular lesions over the legs. She has been using Benadryl and topical cortisone cream with improvement of the rash. Otherwise her laboratories arestable. She does have an increased kappa/lambda light chain ratio from 03/05/2022 but this was her first day of therapy. I recommended resuming Pomalyst at next dose level 2 mg daily as soon as new medi cation arrives for 3 weeks on 1 week off. If she has recurrent rash she will again stop and we willconsider further dose adjustment. Due to her thrombocytopenia we will hold her daratumumab today and consume with first day of Pomalyst next week. She may follow-up in about 3 to 4 weeks, possibly with virologist covering at that time. Patient expressed understanding. 02/19/2022: Mojgan is here for follow-up--no new symptoms but her platelet countdropped to 48,000 last week and we are again holding her Revlimid. She has not had any bleeding or infection recently, but she has had uptrending lambda light chains and we discussed changing her therapy from lenalidomide to pomalidomide and continuing her daratumumab which is currently every other week. Her only other concern is constipation which is likely related to her pain medications. ANC was 800 today. --Today we reviewed chemotherapy counseling for lenalidomide in combination withdaratumumab/dexamethasone (stopping Revlimid). Common toxicities were reviewed to include allergic reactions, myelosuppression, thrombosis, fatigue, nausea, vomiting, constipation, diarrhea, mouth sores, and risk of secondary malignancies. Other toxicities may include pneumonitis, neurologic, hepatic andrenal toxicities. The patient signed informed consent and will follow-up as directed. Planning a trip to [place] on March 06, therefore we will hold Revlimid until arrival of her pomalidomide, then have oral chemotherapy visit. We are starting pomalidomide at 3 mg daily days 1 through 21 every 28 days due to baseline liver dysfunction. Follow-up cycle 1 week 2. We will recheck her baseline myeloma labs on start day of pomalidomide with daratumumab. 01/22/2022: Mojgan has no new complaints. She was seen by Dr. Benavidez at for evaluation for transplant and CAR-T options but given her profound thrombocytopenia, neither of these options are felt tuyet optimal for her. She has had gradual worsening of her lambda light chains without any change of r enalfunction or hypercalcemia. Her chronic thrombocytopenia has remained in the 40-50,000 range which is lower than her prior baseline. I reviewed her options with Dr. Benavidez and it is difficult to assess best options due to her chronic thrombocytopenia but standard of care at this point would be tocontinue her daratumumab and transition from the lenalidomide to pomalidomide. We will follow closely with weekly CBCs to determine if thrombocytopenia worsens on thisregimen. I will defer changing her regimen for 1 month since she is starting a new cycle of lenalidomide and has had slow progression of her lambda light chains. She will return in 1 month and will discuss pomalidomide and signed inf ormed consent. Patient is in agreement with this plan. 12/18/2021: Mojgan is here for 3-month follow-up. She has not had any significant changes in medical history other than testing positive for coronavirus infection in early November 2021. She has not been immunized for coronavirus. She notes persistent fatigue but no bone pain. No other recent infections or bleeding episodes. She recently changed from weekly to now every 2 weeks daratumumab 16 mg/kg and remains on low-dose lenalidomide 5 mg daily for 2 weekson 1 week off due to prior thrombocytopenia worsening. October 2021 skeletal survey showed no osteolytic lesions suggestive of myeloma. Initially she had improvement of her platelets to 70-100,000 but today platelets are down to 54,000. She also had some improvement of leukopenia but this is again down to 2800 with ANC 1300 today. Urinerandom M spike is not observed, but she has hadprogressive increase of her lambda light chains from30 in December 2020 to 60.2 inDecember 2020. [place] lambda ratio has also started to decline to 0.21 in October 2021. For now I'm continuing her daratumumab with Revlimid at current dosing, but I contacted Dr. Benavidez at [facility] for CAR-T cell eligibility. If he has recommendations to change her therapy, I will let her know. Otherwise I will have her follow-up with me in 1 month (she willhave repeat myeloma labs 1 week prior to visit). 09/20/2021: After telephone consultation with Dr. Benavidez at , we resumed repeat loading doses of weekly daratumumab 16mg/kg and changed to low dose lenalidomide 5mg daily. She has had 2 courses of antibiotics for sinus infection over the past month and was noted to have neutropenia with ANC 900, platelets 44,000 week 2 of Revlimid, therefore this was held for one week and resumed Thursday after ANC returned to 1000. Platelet counts have persisted at 40-50,000 range without active bleeding. Otherwise tolerating therapy well. Still improved hip pain and ambulation after recent course of palliative radiation therapy. For now we will continue Daratumumab with Revlimid and Dexamethasone as ordered with weekly CBC. Gradually increasing lambda light chains--pending evaluation at for CAR-T celltherapy eligibility (has not yetbeen contacted for appointment). 4 week f/u with me with CBC, CMP, and myeloma labs (follow quant immunoglobulins and [place]/Lambda light chain ratio with skeletal survey in 2 weeks so results available for appointment). 08/30/2021: Mojgan is here for 2-week follow-up for completion of her palliative radiation therapywith significant improvement of pain in her right hip and pelvis. We sent her for echocardiogram performed 08/23/2021 at [facility] [place] as baseline for possible Kyprolis therapy. This returned with ejection fraction 60% which is normal with grade 1 left ventricular diastolic dysfunction and 1+ tricuspid valve regurgitation and trace to 1+ aortic valve regurgitation.Otherwise unremarkable. I discussed her case with Dr. Benavidez of malignant hematology at [facility]. He advised against Kyprolis therapy given her underlying liver dysfunction and recommended repeating loading doses of daratumumab weekly as well as low-dose lenalidomide which we will start at 5 mg daily since she has chronic thrombocytopenia. We will send for CAR-T therapy as a possible therapeutic option. The patient agreed with changing daratumumab to weekly and we will haveher sign consent next week for change to low-dose lenalidomide therapy. Next follow-up with me will be in about 2 weeks for week 2 lenalidomide with daratumumab. 08/16/2021: One month followup, she recently completed palliative radiation therapy to right hip and pelvis. Platelet count still in 50,000 range with increased bruising but no bleeding. Still has some pain in right hip but slowlyimproving after radiation therapy. Slowly worsening lambda light chain --she is scheduled for ECHO next week. We discussed possibly changing therapy from Daratumumab, Velcade, Dexamethasone to Kyprolis, low dose lenalidomide, dexamethasone if adequate cardiac function. I will discuss this with Dr. Benavidez for dosing and determine if CAR-T therapy is another possible option (although we may be limited due to chronic thrombocytopenia and liver disease). Followup 2-3 weeks to review results and possible consent for change in therapy. 07/17/2021: 2-month follow-up on multiple myeloma. She reports that Thursday she developed severe painin the right leg that started proximal to the knee creating it to the hip. She had increased pain with weightbearing on the right and has been using a walker at home secondary to this. She did not feel a pop or shift in ambulation, but has been using her Percocet for pain control at home. In reviewing her laboratories platelet count remains in the 52,000 range and she is otherwisPe tolerating daratumumab well. I recommended sending for right hip, femur, and knee plain film imaging that did not show any fracture. She does have a gradually rising lambda light chain but no other significant changes in her labs. I reviewed her case with Dr. Cheng of orthopedic surgery who also reviewed her prior PET/CT showing uptake in this area. We will obtain a right hip MRI, keep her completely nonweightbearing on the right leg with walker for transfers and she has an urgent orthopedic follow-up following her MRI. I will follow-up with her in 1 month to review management and we will determine if she requires prophylactic kenton for stability of the hip based on herMRI. 05/24/2021: Here to followup 05/03/2021 bone marrow biopsy--noted to have decreased cellularity 25%, flow cytometry with 0.2% plasma cells and a 1.5% monoclonal B- cell population. FISH showed 13q and 1qabnormalities but normal cytogenetics. No myelodysplasia seen. I reassured her that recent thrombocytopenia is more likely related to splenic sequestration from liver disease and not worsening myeloma. For now continue current regimen. Will alsorecheck B12, folate, and iron profile with next labs--followup in 2 months with myeloma labs, sooner prn. 04/24/2021: 1 month followup to review PET/CT. Over the past 2 days, she notes episodes of sharp left sided neck pain over sternocleidomastoid muscle and mastoid area. No radiculopathy down left upperextremity. No new side effects of Daratumumab. F18 PET/CT shows largely unchanged diffuse uptake through multiple bony sites in axial and articular skeleton. Lambda light chains risingover past 2 month and decline of platelet count to 57,000 without bleeding. MRIof thoracic spine did not show significant thoracic canal stenosis. Due to worsening neck pain with extensive uptake on F18 PET/CT--we will send for cervical MRI. Palliative medicine has increased Percocet to tid. We will repeat bone marrow biopsy due to rising lambda light chain and falling platelet count to determine if progression of myeloma noted. This will be scheduled in the next 1-2 weeks. 03/28/2021: 2 month followup for multiple myeloma. More recently notes neck andleft shoulder pain. Fatigue and constipation stable. Labs show stable anemia and thrombocytopenia. Serum M-spike now asymmetric gamma (no quantifiable spike). Slowly improving IgG to near normal. [place]/lambda light chain ratio normal with mildly increased lambda light chains. MRI of thoracic spine for evaluation of increasing left shoulder pain. For now we will continue current dosing of Daratumumab and recheck F18 PET/CT for response in late April 2021. 01/21/2021: Mojgan is accompanied by her daughter for 2 month followup--now Daratumumab maintenance. She notes persistent fatigue and recently added as needed laxatives to stool softener for management of constipation. Persistent left hand pain--correlates to an area of bone uptake on PET/CT. Overall F18 PET/CT appears stable with no new areas if FDG avidity (still extensive bone FDGuptake). We reviewed prior plain xrays of left hand from November--she agrees toevaluation by orthopedic surgery (determine if biopsy or steroid injections). M-spike and kappa/lambda light chains pending. CBC (platelets 60-70,000); CMP stable. Will followup in 2 months with exam and labs. 11/26/2020: Mojgan is accompanied by her daughter for 2 month followup--now Daratumumab maintenance. Stable leukopenia/low platelet 70,000. Notes 3 days of hematuria and mild dysuria. Sending UA and possible culture. Otherwise no new bone pain. Blood sugars stable. M-spike and kappa/lambda light chain ratiostable. Next f/u 2 months after one year f/u PET/CT to determine response to therapy. 09/24/2020: Mojgan presents (accompanied by her daughter) for cycle 8, week 2 followup [id number] mg/kg IV weekly, Dexamethasone 20mg weekly, and Velcade 0.7 mg/m? now sq once weekly for every 3-week cycle (21 days). She notes neuropathy symptoms are stable. Tolerating therapy well without fatigue. No bleeding and thrombocytopenia stable in 60-70,0000 range. On 10/02 she will be due for maintenance therapy with Daratumumab alone once per month. I will f/u with her in 2 months with myeloma labs, sooner as needed. Velcade and Dexamethasone will be stopped after 8 cycles. 08/13/2020: Mojgan is here for cycle 6, week 2 (day 14) daratumumab 16 mg/kg weekly, Velcade 0.7 mg/m? now sq once weekly for every 3-week cycle (21 days), and dexamethasone 20 mg weekly. No new symptoms--improving thrombocytopenia to 79,000 and improved leukopenia. 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 Still has improvement of M-spike, IgA normal and decreased lambda light chain and K/L ratio. We discussed that week 25 in Oct she will change to monthly daratumumab with weekly Velcade (1mg/m2) and Dexamethasone. Continue to follow every 6-8 weeks until maintenance schedule. 06/18/2020: Mojgan is here for cycle 3 week 3 (day 21) daratumumab 16 mg/kg weekly, Velcade 0.7 mg/m? now sq once weekly for every 5-week cycle (35 days), and dexamethasone 20 mg weekly. Tolerating well with stable leukopenia and thrombocytopenia. Mild increased symptoms of hand and foot neuropathy, but no limitation in activity. Now following with diabetes management clinic with variable glucosecontrol. We reviewed lower IgA (now M-spike IgG kappa after Daratumumab--previously IgA lambda). Lambda light chain has decreased from 516 to 41.3 to now 18.5 with normalization of K/L ratio. Continue followup myeloma labs in 6 weeks, visit in 8 weeks. 05/21/2020: Mojgan is here for cycle 2 (week 7 overall) daratumumab 16 mg/kg weekly, Velcade 0.7 mg/m? now sq once weekly for every 5-week cycle (35 days), and dexamethasone 20 mg weekly. Tolerating well with stable leukopenia and thrombocytopenia. No significant neuropathy. Noted to have improvement in lambda light chains. No further daratumumab infusion reactions. No infections,stable constipation, pain control improved. No other complaints. Continue monthly f/u with myeloma labs. --Diabetes management--added insulin on dexamethasone days. Hyperglycemia improving. 01/18/2020 (phone followup)--The patient's son was available by phone and her daughter was contactedin a separate phone call as patient presented unaccompanied due to COVID-19 precautions in our clinic during the current epidemic. Bone marrow biopsy results were reviewed as follows from procedure pe rformed 01/26/2020: --Bone marrow biopsy was suboptimal for evaluation. --Increased lambda light chain restricted monoclonal plasma cells (1.9% by flow cytometry, approximately 6% and aspirate count, but 50% by immunohistochemical stains [id number]). Sideroblastic iron present, negative for ring sideroblasts. Peripheral blood smear with mild red blood cell anisocytosis and polychromasia, leukopenia with absolute neutropenia (1000) and thrombocytopenia (54,000) consistent with prior baseline. Note: I discussed the results with Dr. Crook 01/26/2020. Preliminary findings were also discussed with Dr. Cummings 01/27/2020. Morphologic findings, immunohistochemical stains, flow cytometry, and ancillary studies may under represent the extent and severity of disease. The results of FISH myeloma panelwith prognostic markers and cytogenetic analysis are pending. --Given the patient's hip pain and presence of lytic lesions, she meets clinicalcriteria for activemyeloma. Given her hip pain and lytic lesions in weightbearing areas she was offered radiation therapy. She had a limited courseof hypofractionated palliative therapy to bilateral proximal femurs [address] Ahn. We discussed that given the COVID-19 epidemic and absence of othersignificant changes other than bony lesions (normal renal function, normal calcium, stable cytopenias), I would defer active therapy for myeloma for 4 to 6 weeks. Since she has significant history ofliver disease I will discuss her case with Dr. Piter Benavidez at [facility] malignant hematology for optimal regimen. The patient is not a transplant candidate given her nonalcoholic steatohepatitis and chronic thrombocytopenia but may be a candidate for either doublet therapy (Revlimid/dexamethasone) or triplet therapy with either Velcade/Revlimid/dexamethasone or daratumumab/Revlimid/dexamethasone. --02/03/2020: Mojgan presented unaccompanied for follow-up of bone marrow aspiration and biopsy performed by Dr. 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 The patient had been noting increased left hip pain over the past several months andplain films of the pelvis and bilateral femurs did show subtle lucencies in the bilateral proximal femurs corresponding to PET/CT findings but no other additional sclerotic lesions identified. No pathologic fractures were seen. --03/05/2020: Mojgan notes improvement of bilateral hip pain since radiation. No other changes in medical history in the past month--no infections, normal renal function, no hypercalcemia. Stable platelet counts without bleeding. Shewas given written literature regarding Dexamethasone, Velcade (thatwould be dose reduced to 0.7mg/m2 twice weekly), weekly Daratumumab and Revlimid, but I will defer decision of which regimen to use until discussion in malignant hematology tumor board. Also referring for infusion port placement prior to initiating therapy. Sign informed consent prior to initiating therapy. --Discussed with Dr. Benavidez who favors Daratumumab combination--will request prior liver biopsy and records from [facility] liver clinic. The patient and her son (by telephone) expressed understanding and will follow- up as directed in 2 weeks for consent and likely start of therapy. --04/02/2020: Mojgan presents after infusion port placement at [facility] by interventional radiology due to platelet count 40,000--she had increased bruising at site post procedure, but this has completely resolved. Her hip painis well controlled since completion of palliative radiation and no newareas of pain. She has previously reviewed information regarding Daratumumab (first dosesplit 8mg/kg IV D1,D2, then if well tolerated 16mg/kg IV weekly), Velcade at about 50% dose (for liver dysfunction) 0.7mg/m2 D1,D4,D8, D11, and [id number] IV weekly--repeat for every 3 week cycles 1st 3 cycles. She will take chemo class and likely start therapy within 2 weeks with toxicity visit in 3 weeks. Today we reviewed chemotherapy counseling for Daratumumab, Velcade, and Dexamethasone. Common toxicities were reviewed to include infusion reaction including rash/dyspnea/wheezing, myelosuppression, fatigue, nausea, vomiting, constipation, diarrhea, mouth sores, and alopecia. Other toxicities may in cludepneumonitis, neurologic, thromboembolism, hyperglycemia, hepatic and renal toxicities. The patient signed informed consent and will follow-up as directed. --04/19/2020: Mojgan is here for cycle 1 week 2 daratumumab 16 mg/kg weekly, Velcade 0.7 mg/m? twice weekly for first 2 weeks of every 3-week cycle, and dexamethasone 20 mg weekly. She did have an infusion reaction with first daratumumab with dyspnea and flushing but this improved after first dose and shehas not had recurrent infusion reactions. We have continued Velcade despite platelet counts in the 40,000 range without bleeding as we know that her baseline platelet counts remain in this range and she has not had any significant change from her baseline. Dexamethasone has caused hyperglycemia with blood sugars up to 400 and we are referring to diabetes management clinic. Otherwise she denies any significant nausea, emesis, fever, chills, night sweats, constipation, diarrhea, rash, mouthsores, or alopecia. She has not hadany change of baseline neuropathy. Liver function tests remain stable. She notes that her hip pain is well controlled since prior palliative radiation and she saw radiation oncology earlier this week with no new recommendations. I will send her myeloma labs including serum and urine protein electrophoresis, quantitative immunoglobulins, and serum kappa/lambda light chains in 2 weeks andfollow-up with her in 3 weeks. She may be seen sooner if new issues arise. This is a 66-year-old lady on chronic disability has a history of arthritis, diabetes mellitus, hypertension, COPD, GERD, and fibromyalgia [facility]. She states that she was followed with Dr. Kmuari prior to his senior care and was told that she had an elevated protein level as well as thrombocytopenia but never had clinical bleeding. She is 4 para4 without complicationsand was never told that she was thrombocytopenic while . She is had multiple prior surgicalprocedures without any clinical bleeding. She had been recommended for a pain procedure with Dr. Wilson but he declined to do the procedure because her platelet count was less than 100,000. For this reason she received 2 platelet transfusions, with little improvement of her platelet count and her second transfusion resulted in throat tightening due to allergy to platelets . She has never beentreated with steroids and has never been told that she has immune thrombocytopenia. She has mild leukopenia with relative neutropenia, absolute neutrophil count of 400-800 and mild lymphocytosis. Hemoglobin is normal. She has not had any bright red blood per rectum or epistaxis. She has no history ofbleeding within the family however does have a mother and sister diagnosed with colon cancer, a brother diagnosed with lung cancer, and another sister diagnosedwith breast cancer. She had prior pain in the right hand mainly at the first MCP joint with some associated swelling and right foot pain and was evaluated by podiatry. She was told that her blood tests were negative forgout. She had screening with MALLORY, CCP, and rheumatoid factor all of which were negative. She says that she previously saw Dr. Petersen for cirrhosis but did not know of any specific therapy. We reviewed these findings from her liver ultrasound ordered by Dr. Benavidez Summer 2016. Initial consultation with me March 16, 2017. --The patient has been followed by me for some time for diagnosis of smoldering myeloma with a prior bone marrow biopsy May 2017 showing 15% plasma cells but the patient remained asymptomatic without bone pain or other CRAB criteria for therapy. She is also noted to have an ascending aortic aneurysm and has chronicliver disease with cirrhosis secondary to nonalcoholic steatohepatitis. She haschronic thrombocytopenia without bleeding ranging from 50-100,000 this is felt to be due to sequestration from her nonalcoholic steatohepatitis. She was previously on a liver transplant list but was recently notified that she is no longer a candidate for liver transplant. She has had chronic pain from f ibromyalgia but noted increasing bilateral hip and upper thigh pain over the last 6 months. She also is followed for EGD/colonoscopy with last documented procedure 09/21/2018: 1. Normal EGD, 2. Mild sigmoid diverticulosis, 3. Internal hemorrhoids, grade 2, 4. Anal fissure with active bleeding cauterized by bipolar cautery Bone osseous survey in June 2019 showed osteopenia and degenerative changes but no lytic or blastic lesion. Patient had an F-18 PET scan 01/02/2020 which showed multiple areas of involvementof bones with increased SUV activity. She was contacted with these results by phone and I recommended bone marrow aspirate and biopsy for assessment and analysis. Her prior labs were reviewed. Her SPEP does not show anymonoclonal gammopathy. On VAHID there appears to be a trace of monoclonal gammopathy. Free light chain ratio is less than 100. There is no evidence of renal sufficiency. Patient is not anemic. She doeshave some abnormal areas on bone scan. - Summary of Therapies Summary of Therapies: 1. 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 2. She underwent a single dose of palliative radiation therapy to bilateral hips, receiving 800 cGyto right and left hip in 1 fraction in separate vaz (with a single isocenter). The treatments were given with AP/PA vaz [id number] MV photons and MLC blocks. 3. Deferred active therapy for myeloma 2 months given COVID-19 epidemic with increased risk of myelosuppression and viral transmission of contacts. --Follow-up 03/05/2020 I discussed her case with Dr. Piter Benavidez at malignant hematology. --Given her significant hepatic dysfunction, I presented her case at malignant hematology tumor board to discuss optimal therapy. 4. Cycle 1 day 1 04/10/2020: Dose reduced Velcade 0.7 mg/m? twice weekly (day 1,day 4, day 8, day 11)every 3 weeks with dexamethasone 20 mg weekly and daratumumab 16 mg/kg weekly of each 21-day cycle.After first week, Velcade decreased to 0.7mg sq weekly due to thrombocytopenia. --We will need to watch liver function, platelet count, and neuropathy closely on Velcade. 5. Cycle 9 day 1 10/02/2020: Daratumumab 16mg/kg once monthly maintenance therapy until progression. 6. 07/31/2021: Palliative radiation therapy to right supra chondral/soft tissuearea of hip which is PET positive. She received a dose of 3000 cGy in 10 fractions from 07/31/2021 to 08/15/2021 over 15 elapsed days 7. 08/30/2021: Right hip pain improved after radiation. Due to disease progression with persistent cytopenias, changed to repeat loading doses of daratumumab 16 mg/kg weekly for cycles 1 through 3 with Revlimid 5 mg daily for 3 weeks on 1 week off. Held Revlimid second week due to neutropenia with sinus infection, resumed 3 days ago (09/17/2021). Referred for CAR-T therapy evaluation. 8. 12/18/2021: Daratumumab is now 16 mg/kg every 2 weeks with Revlimid 5 mg daily for 2 weeks on 2 weeks off due to neutropenia and thrombocytopenia. Stillpending evaluation for CAR-T therapy. 9. 01/22/2022: Patient is not deemed a candidate for stem cell transplant or CAR- T therapy at this time. Discussed changing from current Revlimid to pomalidomide with continued daratumumab 16 mg/kg every 2 weeks. Plan change in therapy in 1 month. 10. 02/19/2022: Continue daratumumab 16 mg/kg IV every 2 weeks and changed to pomalidomide now 3 mg daily days 1 through 21 of each 28-day cycle (lower dose due to baseline liver dysfunction) -- 03/19/2022: Patient was noted to tolerate Pomalyst only 1 week (03/05- 03/13/2022)due to grade 3 rash. This resolved after stopping medication 1 week later. 1 dose level reduction Pomalyst to 2 mg daily days 1 through 21 of each 28-day cycle. Also holding daratumumab daily for platelet count of 41,000 and will resume at full dose with first dose of Pomalyst. -- 04/09/2022: Platelet 40,000 without bleeding. Will continue monthly Daratumumab with change of Pomalyst to 2mg D1-14 each 28 day cycle (off 2 weeks due to low platelets). Rising lambda light chains,unable to tolerate Pomalyst due to cytopenias, stopped mid 07/2022. 11. 07/18/2022: carfilzomib (dose 20mg/m2 day one then 56mg/m2 D8, D15) with cyclophosphamide 300mg IV weekly and weekly dexamethasone. Baseline echocardiogram EF 60-65%. We will follow closely for her chronic cytopenias andliver dysfunction. ROS Details: All systems reviewed & no additional complaints except as documented Subjective/ROS - Narrative: Constitutional: No Chills, No Diaphoresis, Stable Fatigue, No Fever, No Malaise, No Night Sweats, No Weakness, No Weight Gain, No Weight Loss Gastrointestinal: No Abdominal Pain, No Black Stool, No Bloating, No Bloody Stool, positive for constipation, No Diarrhea, No Dysphagia, No Hematemesis, No Nausea, No Postprandial Pain, No Rectal Bleeding, No Rectal Pain, No Vomiting, Other (chronic gastroesophageal reflux stable) --No jaundice or ascites but patient has longstanding nonalcoholic steatohepatitis with cirrhosis, previously followed by [facility] gastroenterology. Cardiovascular: No Chest Pain, No Edema, No Palpitations, No Syncope Genitourinary: No Discharge, No Dysuria, No Flank Pain, Frequency (chronic andunchanged), Resolved Hematuria, No Incontinence, No Nocturia, No Urgency, No Urinary Retention Musculoskeletal: + left shoulder and neck pain as per HPI (no thoracic cord compression). Improvement of prior bilateral hip/thigh pain since radiation; positive for intermittent lumbar back pain, NoChest Wall Tenderness, Improvement of prior Joint Pain, Muscle Stiffness, Myalgia (history of fibromyalgia), --unremarkable skeletal survey June 2019. 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 12/2020: F-18 PET/CT stable. 04/2021 F-18 PET/CT stable. Right hip pain mildly improved after palliative radiation. 04/30/2022 repeat Axumin F-18 PET/CT stablefrom 1 year ago. HEENT: No Blurred Vision, No Discharge, No Ear Pain, No Epistaxis, No Rhinorrhea, No Sore Throat--patient was seen in emergency department November 2019 with persistent epistaxis. She was treated withnasal clip and packing andwas advised to continue Afrin. No recurrent bleeding. 2 courses of antibio ticsin Aug-Sep 2021 for recurrent sinusitis Respiratory: No Cough, No Hemoptysis, mild Shortness of Breath (chronic and unchanged due to COPD),No Sputum, No Wheezing--shortness of breath with daratumumab reaction dose 1 04/10/2020 (given a split dose over 2 days). No recurrent reaction since first dose. Neurological: No Dizziness, Stable Numbness/Tingling (reports long-standing bilateral foot numbness--unchanged since starting low-dose Velcade 04/10/2020), NoPre-existing Deficit (no history of stroke or seizure), intermittent headache Hematologic/Lymphatic: No significant bleeding thrombocytopenia from sequestration/myeloma disease,Bruises Easily, No Enlarged Lymph Nodes, Other (reports allergy to prior platelet transfusion) Endocrine: Excessive Sweating (hot flashes, postmenopausal) Flushing, No Intolerance to Cold, Intolerance to Heat Psychiatric: No Depressed Mood, No Insomnia Integumentary: No Jaundice, No Lesions, positive for diffuse rash on Pomalyst 3mg daily as per HPI.1 level dose reduction to 2 mg daily with only mild rash/pruritus. Due to cytopenias Pomalyst is reduced to 2 mg twice weekly on Mondays and . Stopped Pomalyst in Jul 2022--no recurrent rash. Allergic/Immunology: Previous pruritus with Pomalyst rash resolved off Pomalyst. PMFSH - History Attestation statement: The following information was validated with the patient. Source: Old Records Reviewed - Medical History Medical History: Medical History (Last Reviewed 08/20/22 @ 10:58 by Fabiola Marinelli MD) Aortic aneurysm COPD (chronic obstructive pulmonary disease) Diabetes Fibromyalgia GERD (gastroesophageal reflux disease) Hypertension Iron deficiency Multiple myeloma Neutropenia Smoldering multiple myeloma (SMM) Smoldering myeloma Temporary low platelet count - Surgical History Surgical History: Surgical History (Last Reviewed 08/20/22 @ 10:58 by Fabiola Marinelli MD) H/O: hysterectomy History of appendectomy History of cholecystectomy - Social History Smoking Status: Former smoker Tobacco Type: cigarettes Substance Use Type: None Social History Comments: Lives with son a juli Home Medications & Allergies Allergies erythromycin base [From E-Mycin] Allergy (Verified 08/20/22 10:47) Hives latex Allergy (Verified 08/20/22 10:47) Unknown Reaction moxifloxacin [From Avelox] Allergy (Verified 08/20/22 10:47) Hives Quinolones Allergy (Verified 08/20/22 10:47) Unknown Reaction tetracycline Allergy (Verified 08/20/22 10:47) Unknown Reaction Home Medications carvedilol 12.5 mg tablet 12.5 mg PO BID 11/20/17 [History Confirmed 08/20/22] duloxetine 60 mg capsule,delayed release 60 mg PO DAILY 11/20/17 [History Confirmed 08/20/22] insulin detemir U-100 100 unit/mL (3 mL) subcutaneous pen 26 units subcut QHS 11/20/17 [History Confirmed 08/20/22] oxycodone 10 mg tablet 10 mg PO TID PRN Pain 11/20/17 [History Confirmed 08/20/22] albuterol sulfate 90 mcg/actuation aerosol inhaler 2 puff inhalation Q6H PRN Shortness Of Breath 11/24/17 [History Confirmed 08/20/22] fluticasone 250 mcg-salmeterol 50 mcg/dose blistr powdr for inhalation (Advair Diskus) 1 inh inhalation Q12H PRN Shortness Of Breath 11/24/17 [History Confirmed 08/20/22] omeprazole magnesium 20 mg tablet,delayed release (Prilosec OTC) 40 mg PO DAILY 11/24/17 [History Confirmed 08/20/22] cholecalciferol (vitamin D3) 25 mcg (1,000 unit) capsule (Vitamin D3) 1,000 unitPO DAILY 04/13/19 [History Confirmed 08/20/22] metformin 500 mg tablet,extended release 24 hr 500 mg PO BID 03/05/20 [History Confirmed 08/20/22] ondansetron HCl 8 mg tablet (Zofran) 8 mg PO TID PRN Nausea #30 tabs 04/02/20 [Rx Confirmed 08/20/22] insulin NPH isoph U-100 human 100 unit/mL subcutaneous suspension (Novolin N NPHU-100 Insulin isophane) 20 unit subcut DIRECTED 05/21/20 [History Confirmed 08/20/22] nystatin 100,000 unit/mL oral suspension 100,000 unit buccal DAILY oral pain 90 days #500 mL 06/18/20 [Rx Confirmed 08/20/22] semaglutide 0.25 mg or 0.5 mg (2 mg/1.5 mL) subcutaneous pen injector (Ozempic) 0.5 mg subcut QWEEK09/24/20 [History Confirmed 08/20/22] cyanocobalamin (vitamin B-12) 5,000 mcg capsule 5,000 mcg PO QWEEK 10/29/20 [History Confirmed 08/20/22] vitamin B12 0.5 mg-folic acid 1 mg tablet 1 tab PO DAILY 03/28/21 [History Confirmed 08/20/22] diazepam 5 mg tablet (Valium) 5 mg PO DIRECTED 1 day #2 tabs 07/17/21 [Rx Confirmed 08/20/22] gabapentin 300 mg tablet 600 mg PO TID 07/26/21 [History Confirmed 08/20/22] acyclovir 400 mg tablet 400 mg PO BID 90 days #180 tabs 12/24/21 [Rx Confirmed 08/20/22] dexamethasone 4 mg tablet 20 mg PO ONCE 90 days #60 tabs 03/26/22 [Rx Confirmed 08/20/22] lactulose 20 gram/30 mL oral solution 20 g (30 mL) PO BID PRN Constipation #600 mL 04/09/22 [Rx Confirmed 08/20/22] ondansetron 8 mg disintegrating tablet 8 mg PO Q8H PRN Nausea #30 tabs 06/04/22 [Rx Confirmed 08/20/22] pomalidomide 2 mg capsule (Pomalyst) 2 mg PO DAILY 28 days #14 caps 06/24/22 [Rx Confirmed 08/20/22] dexamethasone 4 mg tablet 40 mg PO ONCE #40 tabs 07/14/22 [Rx Confirmed 08/20/22] dexamethasone 4 mg tablet 40 mg PO ONCE #40 tabs 08/15/22 [Rx Confirmed 08/20/22] potassium chloride 10 mEq capsule,extended release 10 meq PO DAILY #30 caps 08/18/22 [Rx Confirmed 08/20/22] Objective - Height/Weight Height/Weight: Height 5 ft 2.99 in Weight 80.286 kg BSA for Today's Weight 1.94 - Vital Signs Vital Signs: 08/20/22 10:48 Temperature 97.8 F Pulse Rate [Left Brachial] 89 Respiratory Rate 16 Blood Pressure [Right Arm] 125/83 02 Sat by Pulse Oximetry 99 Oxygen Delivery Method Room Air - Pain Generalized Pain Intensity: 3 Bilateral Hip Pain Intensity: 5 Left Hip Pain Intensity: 4 Lower Back Pain Intensity: 7 Left Neck Pain Intensity: 4 Back Pain Intensity: 0 Right Thigh Pain Intensity: 3 Bilateral Leg Pain Intensity: 5 Bilateral Shoulder Pain Intensity: 6 Left index finger Pain Intensity: 4 - Distress Screening Distress Screen Results: RN Distress Screening Start: 02/07/20 10:17 Freq: Status: Complete Protocol: Document 05/01/20 09:33 DB (Rec: 05/01/20 09:33 DB [facility]-[id number]) Distress Screening Distress Score: 0 No worry/distress Distress Screening Total 0 RN Distress Screening Start: 07/26/21 12:37 Freq: Status: Active Protocol: Document 07/26/21 13:20 DB (Rec: 07/26/21 13:20 DB -[id number]) Distress Screening Distress Score: 2 Physical Concerns Pain Distress Screening Total 2 Physical Exam Narrative: Patient is alert and oriented x3. HEAD / FACE: Normocephalic. No tenderness to palpation over scalp, no sinus tenderness to palpation. EYES: Pupils are equal and reactive to light. Conjunctivae and lids are benign in appearance. Ocular movement intact. EARS: Hearing grossly intact. NOSE / MOUTH / THROAT: Nose, mouth, tongue and oropharynx exam without visible lesion. NECK / THYROID: Neck moderate limitation of range of motion--currently no significant tenderness over left sternocleidomastoid and mastoid bone. No cervical adenopathy on exam. Thyroid is symmetrical, without thyromegaly, masses or palpable nodules. LYMPHATIC: No palpable cervical, supraclavicular, axillary, or inguinal adenopathy. RESPIRATORY: Normal inspection. Lungs clear to auscultation and percussion. No wheezing, rales, rhonchi or rubs. Normal effort. Right chest wall infusion portwithout erythema. CARDIOVASCULAR: Regular rate and rhythm. No murmurs, gallops, or rubs. VASCULAR: Carotid, radial, femoral and pedal pulses present bilaterally. No bruits. ABDOMEN: Bowel sounds normoactive. Soft, nontender and non-distended. No hepatosplenomegaly. No masses. GENITOURINARY: No CVA tenderness. No suprapubic fullness or tenderness. No groinadenopathy. No evidence of hernias. INTEGUMENTARY: The skin is unremarkable. Resolved lower extremity macular rash.No suspicious lesions. No bruising or petechiae noted. BACK / SPINE: Mild tenderness cervical/upper thoracic spine without step off deformity. No lumbar tenderness. MUSCULOSKELETAL: Normal musculature, normal ROM upper and lower extremities, no crepitus. EXTREMITIES: Trace bilateral leg edema--improving. No cyanosis or clubbing. No Destini sign. NEUROLOGICAL: Alert and oriented. Cranial nerves intact. No gross motor or sensory deficits, patient ambulates unassisted. PSYCHIATRIC: No anxiety or evidence of depression. - ECOG Performance Status ECOG Score: 1 Results - Labs Labs: Diagram of Most Recent CBC and CMP 08/19/22 14:45 08/19/22 14:45 Labs - Last 7 Days 08/19/22 14:45: PHA Creatinine Clear 124.92, Sodium 138, Potassium 3.7, [id number], Carbon Xsoymom63.6, Anion Gap 10.1, BUN 14, Creatinine 0.46, Est GFR ( Amer) > 60, Est GFR (Non-Af Amer) > 60, Glucose 141 H, Calcium 9.3, Total Bilirubin 1.1, AST 25, ALT 28, Alkaline Phosphatase 107H, Total Protein 5.0 L, Albumin 3.0 L, Globulin 2.0, Albumin/Globulin Ratio 1.5 08/19/22 14:45: Corrected WBC 1.9 L, Uncorrected WBC Count 1.9 L, RBC 3.34 L, Hgb 11.1 L, Hct 33.7 L, MCV 101.0 H, MCH 33.3, MCHC 33.0, RDW 17.6 H, Plt Count 56 L, MPV 9.5, Neut % (Auto) 50.4, Lymph % (Auto) 34.8, Hodgeman % (Auto) 12.9, Eos % (Auto) 1.7, Baso % (Auto) 0.2, Neut # (Auto) 1.0 L, Lymph #(Auto) 0.7 L, Hodgeman# (Auto) 0.2, Eos # (Auto) 0.0, Baso # (Auto) 0.0, Nucleated RBC % (auto) 0.3 08/15/22 14:45: Corrected WBC 1.3 L, Uncorrected WBC Count 1.3 L, RBC 3.14 L, Hgb 10.7 L, Hct 31.8 L, MCV 101.3 H, MCH 34.1, MCHC 33.7, RDW 17.8 H, Plt Count 43 L, MPV 9.1, Neut % (Auto) 34.9, Lymph % (Auto) 44.9, Hodgeman % (Auto) 18.3, Eos % (Auto) 1.7, Baso % (Auto) 0.2, Neut # (Auto) 0.5 L, Lymph #(Auto) 0.6 L, Hodgeman# (Auto) 0.2, Eos # (Auto) 0.0, Baso # (Auto) 0.0, Nucleated RBC % (auto) 0.0, Camilla telet Estimate Decreased L, Plt Morphology Comment Normal, RBC Morphology N/A, Poikilocytosis Slight, Anisocytosis Slight, Macrocytosis Moderate - Impressions Chest 2 views CLINICAL HISTORY: High risk medication use. COMPARISON: Chest 02/05/2022 FINDINGS: Right-sided port is identified within the SVC. Heart and mediastinal structures appear unchanged. Lungs are clear. No free air. XR/XR chest 2V* IMPRESSION: NO ACUTE CARDIOPULMONARY ABNORMALITY. Impression dictated by: Carroll Sparrow Jr., D.OErna08/12/2022 3:54 PM - Other Results Results/Comments: Date of Service: 07/18/22 ECH/ECH echo transthoracic: Routine monitoring for cardiotoxic chemotherapy Copies to: MD Phil Downey MD~ BSA: 1.8 m2 BP: 111/82 mmHg HR: 75 Reason For Study: Routine monitoring for cardiotoxic chemotherapy--baseline History: HTN, DM, former smoker, family history of CAD, thoracic aortic aneursym Interpretation Summary The left ventricular size, thickness and function are normal The left ventricular wall motion is normal. Ejection Fraction = 60-65%. A variety of Doppler measurements indicate impaired left ventricular relaxation, which is associated with grade I/IV or mild diastolic dysfunction. There is mild tricuspid regurgitation. There is no comparison study available. Procedure/Quality: A two-dimensional transthoracic echocardiogram with color flow and Doppler was performed. The study was technically good in quality. Left Ventricle: The left ventricular size, thickness and function are normal. Ejection Fraction = 60-65%. A variety of Doppler measurements indicate impaired left ventricular relaxation, which is associated with grade I/IV or mild diastolic dysfunction. The left ventricular wall motion is normal. Left Atrium: The left atrium appears normal in size. Right Atrium: The right atrium appears normal in size. Right Ventricle: The right ventricular size, thickness and function are normal. Aortic Valve: The aortic valve is normal in structure and function. No aortic regurgitation is present. Mitral Valve: The mitral valve is normal in structure and function. There is no mitral regurgitation noted. Tricuspid Valve: The tricuspid valve is normal in structure and function. There is mild tricuspid regurgitation. Right ventricular systolic pressure is normal. Pulmonic Valve: The pulmonic valve is normal in structure and function. Arteries: The aortic root is normal size. Pericardium/Pleura: No pericardial effusion seen. There is no pleuraleffusion. IVC/Hepatic Viens: The inferior vena cava is normal in size, with a normal collapsibility index. 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 She has high risk cytogenetics and I [facility]. Her persistent thrombocytopenia made her ineligible for any clinical trials, and preventedher from receiving local pain procedures given her chronic low back pain. --05/2017 PET/CT images and reports performed for staging to exclude bone involvement with myeloma. 2 indeterminate areas of uptake thought to be degenerative arthritis vs early bone findings of myeloma (right parietooccipital area and upper sternum). She has remained asymptomatic in these areas andwe arranged repeat PET/CT at 6 months with CBC, CMP, SPEP and UPEP with immunofixation, serum kappa/lambda light chain analysis, and quantitative immunoglobulins. --No lytic lesion seen on f/u PET/CT 11/2017 and all labs stable. Also had head CT to evaluate for mastoiditis in 03/2018 unremarkable. 05/2018 skeletal survey showed no lytic lesions and she has stableshoulder, hand, and right SI joint pain (although likely due to fibromyalgia. --Prior osseous survey 07/01/2019 showed osteopenia but no compression fractures or lytic lesions were identified. She had no significant change in myeloma labs(mild increase of urine M-spike, kappa/lambda ratio, and normal serum M- spike and quant immunoglobulins). Urine protein still undetectable, therefore will continue surveillance every 6 months with the same labs--no hypercalcemia, renaldysfunction (or proteinuria), anemia, or new bone symptoms. [...] proteins with urine M spike 43.1 but totalprotein 34.4, with no reported urine creatinine. --We deferred immunosuppressive chemotherapy for about 1 month due to control ofsymptoms after palliative radiation and concern of potential peak of COVID-19 inlate January early March. --She presented for follow-up 03/05/2020 and we discussed potential therapy options (with son available by phone). --I discussed her case with Dr. Piter Benavidez of malignant hematology, possibly presenting the patient in hematology tumor board at [facility]. --Infusion port placed 03/22/2020 at [facility] due to low platelets. No complications. --03/12/2020: Myeloma labs with no serum M-spike, + urine M spike 22.2mg/24h (14%). Immunofixation IgA lambda specificity. IgA normal 227, Serum kappa 20.6, serum lambda 516.7, Free kappa/lambda ratio0.04. Normal renal function and calcium. Lower ANC 600 and platelets 40,000 --04/10/2020: Started cycle 1 day 1 of weekly dexamethasone 20 mg IV (careful to watch blood sugars with diabetes and known hepatic dysfunction), decreased dose of bortezomib 0.7 mg/m? twice weekly for2 weeks on 1 week off (due to known liver disease and thrombocytopenia), and daratumumab 8mg/kg D1,D2 IV first week, then 16 mg/kg IV weekly and we may consider Revlimid as a 4th medication if needed(deferred for worsening neutropenia and thrombocytopenia--I am reluctant to add this therapy initially). ------ --- --01/21/2021: One year f/u F18 PET/CT with stable FDG avidity, monoclonal labs (SPEP, Quant Igs, kappa/lambda ratio) all pending. Stable CBC and CMP. Persistent pain left hand 2nd MCP joint--increaseduptake on PET/CT but no lesion on left hand xray from 11/2020. Sending for ortho evaluation. For nowcontinue once monthly Daratumumab. F/u with myeloma labs and exam in 2 months, sooner prn. --05/24/2021: Bone marrow biopsy does not show significant progression although poor prognosis mutation 1q with 13q on FISH. Hypocellular with recent worseningplatelets without bleeding--will recheck B12, folate, and ferritin. [...] sent for plain films of the hip femurand knee showing degenerative changes but no acute [...] progression although she still has slow rise inlambda light chain and platelet count remains in the 50,000 range. She has increased bruising but no bleeding. For now we will continuedaratumumab and follow closely in 6 weeks with monoclonal gammopathy labs and toreview recommendations from orthopedic surgery. --08/30/2021: Improvement of prior right hip pain after radiation therapy. Echo with normal ejection fraction and platelets stable at 52,000 without bleeding. I discussed her case with Dr. Benavidez who advised against Kyprolis due toher known liver disease. He recommended repeating loading doses of weekly daratumumab with low dose Revlimid (I will start with 5mg daily D 1-21 each 28 day cycle due to her thrombocytopenia). F/u 2 weeks for toxicity check. She will sign Revlimid consent Thursday. She is in agreement with this plan. --09/20/2021: Started daratumumab loading doses weekly with Revlimid on 09/04/2021. Held therapy forANC 900 and platelet 42,000 with sinus infection, now resolved and resumed Revlimid 5mg daily on 09/17. Will continue therapy as prescribed with weekly CBC and hold Revlimid as needed for cytopenias.Evaluation for [facility] at [facility]. Send myeloma labs and skeletal survey [...] current cycle of Revlimid with change to pomalidomide4 mg daily, follow weekly CBCs after change in therapy and determine optimal dose based on symptomsand cytopenias. Patient is in agreement with this plan. Next follow-up with me in 1 month and we will defer next light chain analysis until 1 month after change in therapy. --02/19/2022: Continued rise in lambda light chains and worsening thrombocytopenia. Today we reviewed informed consent for adding pomalidomide 3 mg daily days 1 through 21 every 28 cycle 2 every otherweek daratumumab. We are dropping Revlimid due to [...] initial cycle was only given 03/05-03/13/2022. Now thatradha has complete resolution of symptoms she may resume pomalidomide at 1 dose level reduction 2 mg daily for days 1 through 21 of each 28-day cycle. We are also holding her daratumumab today due to declining her platelet count 41,000 without bleeding. Repeat kappa/lambda light chain ratio was increased 80 on 4but this was her first dose of pomalidomide. Plan anticipate arrival of pomalidomide within the next 1 to 2 weeks and she may resume daratumumab on day1 of therapy. Her next follow-up will be [...] for following myeloma show normal mild increase herfree lambda from 87 to 106, kappa/lambda ratio decreased 0.10-0.09. I will give her 1 more month ofpomalidomide with daratumumab and dexamethasone. The pomalidomide dose will be changed to 2 mg p.o.days 1 through 14, off days 15 through [...] bony lesions. Her kappa/lambda light chain ratio remainsrelatively stable since early March (0.09-0.11) with free lambda light chainsnow relatively stable (106-109). I advised continuing her current regimen and reevaluating with kappa/lambda light chain ratio in 2 months. Continue current dosing and close observation due to platelet count 48,000. No signs or symptomsof infection. Patient is in agreement with this plan. --07/10/2022: Mojgan has no new symptoms, but continued cytopenias with 2 weeks of pomalidomide helddue to recurrent neutropenia and persistent thrombocytopenia (40-50,000). Continued uptrending lambda light chains consistent with progression of myeloma. We did discuss bone marrow biopsy, but this would not policy change clerk, therefore we will give Pomalyst (now decreasedto 2mg Thursday and only) with last dose Daratumumab tomorrow. 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 Will f/u ECHO and consent for therapy tomorrow. Plan discussed with Dr. Benavidez Malignant Hematology--recommends no dose reduction of Cytoxan, but transfusion support as needed since cytopenias may be due to progression of malignancy. --08/20/2022: Mojgan is here for cycle 2 day 1 of Carfilzomib 56mg/m2 IV weekly, Cyclophosphamide 300mg/m2 IV weekly, and Dexamethasone 20mg IV/po weekly. Tolerating well without new side effects. Stable fatigue, no bleeding. Mild improvement of platelets without active bleeding, stable WBC with ANC 1000. 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 This is a moderate complexity visit over 35 minutes for review of symptoms, cytopenias, echo results, and tolerance of Carfilzomib, Cyclophosphamide, and Dexamethasone. 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 I previously reviewed her outpatient records from [facility], including review of notes, laboratories, and prior bone marrow biopsy 13 years ago. 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 Most recent platelet count is relatively stable at 54,000 but no clinical bleeding. She waspreviously referred to weight reduction clinic and may have slow improvement of steatohepatitis with lifestyle modification. Unless she has active bleeding or planned surgery, we will continue observation during treatment of active myelomato commence next month as noted above. --Agree with recommendation for EGD surveillance for varices (last was 09/2018--negative). This will be deferred during current COVID-19 epidemic. --Prior vitamin B12 and folic acid are normal, for known history of neuropathy. As noted above, I reviewed the negative M spike on serum protein electrophoresiswith immunofixation, but positive for Bence Murray protein on urine protein electrophoresis. Her Quantitative immunoglobulins IgG, IgA, and I gM were all within normal limits, however her serum kappa lambda light chain analysis showeda predominance of lambda light chains. --Previous labs for lupus anticoagulant with DRVVT, hexagonal phase phospholipid, anti-cardiolipin IgG and IgA, and beta 2 glycoprotein IgG and IgA were within normal limits. --Evaluated in ED November 2019 for epistaxis which resolved. Platelet count wasstable at 12/28/2019 follow-up. She continues surveillance with liver clinic at [facility] and I will continue to follow her every 6 months, sooner if newbleeding issues arise. --04/02/2020: We reviewed informed consent for Daratumumab/Velcade/Dexamethasone for active myeloma therapy. I requested prior liver biopsy results and notes from liver clinic at [facility]. Platelet count in 40,000 range but patient has had no active bleeding following infusion port placement 03/22/2020. --08/13/2020: Cycle 6 week 2 toxicity check with improved thrombocytopenia 79,000 range with no bleeding. We will continue current dosing with Velcade 0.7mg/m2 sq (now once weekly), dexamethasone 20 mg weekly, and full dose daratumumab with close follow-up of liver function and platelet counts. --09/24/2020, 01/21/2021, 03/28/2021: Platelets stable 60-70,000 with no new toxicities, started Daratumumab maintenance 10/02/2020. --04/24/2021: Platelets now down to 57,000 with rising lambda light chains. Will eval with repeat bone marrow biopsy due to nonsecretory myeloma. --05/24/2021: Bone marrow hypocellular without significant myeloma progression. Normal B12/folate stores, continue Daratumumab maintenance. --08/16/2021: Persistent thrombocytopenia in 50,000 range, consider change in therapy due to risinglambda light chains. Will check echo and review case withDr. Benavidez at to discuss next line of therapy. --08/30/2021: Stable platelets--decision to resume weekly Daratumumab 16mg first 3 cycles and change to Revlimid 5mg daily 1-21 each 28 day cycle--titrate as tolerated --09/20/2021: Platelets have declined to 40-50,000 range without mucosal bleeding. Held Revlimid atplatelets 42,000 during sinus infection, resumed after one week off. Will follow weekly CBCs on Daratumumab/Revlimid. --12/18/2021, 01/22/2022: Platelets still in the 50,000 range without mucosal bleeding. Current dosing of daratumumab every 2 weeks and Revlimid 5 mg daily 2weeks on 2 weeks off--plan to change to pomalidomide 3 mg daily next cycle. -- 02/19/2022: Last week platelets were 48,000 and we held Revlimid. This week platelets 58,000 but continuing to hold Revlimid due to change to daratumumab 16mg/kg IV every 2 weeks with pomalidomide 3 mg daily days 1 through 21 every 28-day cycle -- 03/19/2022: Platelets were down to 41,000 and we held daratumumab as well as Pomalyst for rash asnoted above. Resume Pomalyst at 2 mg days 1 through 21 every 28 days. Continue daratumumab 16 mg/kgevery 2 weeks. -- 04/09/2022: Platelets down to 40,000. Okay to give daratumumab 16 mg/kg IV every 2 weeks but Pomalyst dose will be changed to 2 mg days 1 through 14 every 28 days. Follow-up 1 month. -- 05/07/2022: Platelets 48,000. Continue monthly daratumumab 16mg/kg IV with same Pomalyst dose 2mg daily D1-14 every 28 days. Extend next follow-up with kappa/lambda light chain ratio to 2 months. --07/10/2022: Platelets 53,000 with ANC now 600 (held Pomalyst one week for ANC 300). May have one dose Pomalyst today, then hold for change in therapy. Will have platelet transfusion as needed for change in therapy to Kyprolis/Cytoxan/Deamethasone. --08/20/2022: Platelets declined to mid 30,000 range about 4 weeks ago--now up to 56,000 and WBC 1600 and ANC 1000 on Kyprolis/Cytoxan/Deamethasone. No activebleeding. Continue current dosing and f/uin 3 weeks. (3) Cancer-related pain Improved symptoms after palliative radiation to bilateral hips--one dose 02/07/2020. Will continue tofollow on myeloma chemotherapy. Extensive, but stable bone involvement on F-18 PET/CT 12/2020 and 04/2021. Recent increased leftneck and shoulder pain. Increased oxycodone dosing to three times daily, no unusual right hip pain is noted above--followed by palliative medicine. -Completed right hip radiation with persistent but improved pain--no new pain issues with follow-upvisit with radiation in early March 2022, follow-up as needed. Will continue to follow with palliative medicine. 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 She wasreferred to [facility] to attempt weight reduction through diet and exercise that may prevent further fatty infiltration that may further impairher liver function. [facility] hepatology discussed liver transplant but sheis likely no longer a candidate for this given active myeloma. We chose least hepatotoxic regimen for treatment of her active myeloma with 50% dose reduction of Velcade. Liver function remained stable since start of therapy 04/10/2020. --Requested prior liver biopsy and [facility] liver clinic records. Dose reduction 20% Kyprolis due to KAPADIA with cirrhosis (normal bilirubin and transaminases). Stable LFTs on current Kyprolis/Cytoxan/Deamethasone therapy. (5) Encounter for chemotherapy management Initial Daratumumab maintenance tolerated well without significant toxicities. Bone marrow biopsy did not reveal indication for change in therapy. --09/04/2021: Repeat loading with weekly Daratumumab 16mg first 3 cycles and changed to Revlimid 5mgdaily 1-21 each 28 day cycle--02/19/2022 reviewed informed consent to change to pomalidomide next cycle. --03/19/2022. Pomalyst was stopped after 1 week of therapy on 03/13/2022. Daratumumab held 03/19/2022 due to platelet count 41,000. We resumed both medications on arrival of dose reduce Pomalyst 2 mg days 1 through 21 every 28- day cycle. -- 04/09/2022: Daratumumab is monthly maintenance. Mid July: last dose Pomalyst 2mg today with ANC 600. -- 07/30/2022: Changed chemo to Kyprolis/Cytoxan, normal baseline Echo. Will continue every 3 week therapy until progression or intolerable toxicity. (6) History of 2019 novel coronavirus disease (COVID-19) Patient had coronavirus infection encouraged her to complete vaccinations with booster. When she iscompleted all coronavirus vaccination with booster, she may be eligible for antivirals Evasheld (tixagevimab IM and cilgavimab IM) for passive immunity of coronavirus 19 infection. - Chemo Plan Chemo Plan (Dose, Rate, Freq): Palliative radiation to 02/07/2020, deferred active therapy for myeloma for 8 weeks due to current COVID-19 epidemic. Discussed at Malignant Hematology Tumor Board early March to determine optimal regimen given her comorbidities. --04/10/2020: cycle 1, day 1 weekly dexamethasone 20 mg IV (careful to watch bloodsugars with diabetes and known hepatic dysfunction), decreased dose of bortezomib 0.7 mg/m? twice weekly for 2 weeks on1 week off (decreased to once weekly after first cycle due to known liver disease and thrombocytopenia), and daratumumab 8mg/kg D1,D2 IV first week, then 16 mg/kg IV weekly --10/02/2020: Started Daratumumab monthly maintenance 16mg/kg IV (stopped Velcade and Dexamethasone) --Palliative radiation 07/31/2021 right hip --09/04/2021: Start weekly Daratumumab 16mg/kg first 3 cycles and change to Revlimid 5mg daily 1-21 each 28 day cycle--now 5mg daily D1-14 every 28 days--titrate as tolerated. --02/19/2022: Continue daratumumab 16 mg/kg every other week and changed Revlimidto pomalidomide 3 mg daily days 1 through 21 each 28-day cycle. --Pomalyst was stopped after 1 week of therapy on 03/13/2022. Daratumumab held 03/19/2022 due to platelet count 41,000. We will resume both medications on arrival of dose reduce Pomalyst 2 mg days 1 through 21 every 28-day cycle. -- 04/01/2022: Now has thrombocytopenia with platelet count 40,000. Proceeding with daratumumab 16 mg/kg IV every 2 weeks and will hold Pomalyst and change dosing to 2 mg days 1 through 14 every 28-day cycle for presumed medication related myelosuppression. Daratumumab to monthly dosing since early April had nochange in Pomalyst 2 mg days 1 through 14 every 28-day cycle. --07/10/2022: Held Pomalyst 2mg daily with held dosing 2 weeks due to worsening neutropenia. Today discussed change in therapy. --07/30/2022: Changed to Pomalyst (week 1 test dose 20mg/m2 IV, then 56mg/m2 IV weekly--dose reduction for liver dysfunction due to nonalcoholic steatohepatitis) with Cytoxan 300mg/m2 IV weekly, Dexamethasone 20mg weekly. Goal of Treatment: Palliative - Time with Patient Time Spent with Patient (Follow Up Visit): 35 minutes - Moderate complexity 35 min to review toxicities and cytopenias on carfilzomib/cytoxan/dexamethasone Coordination of Care & Counseling Time: Greater than 50% of time spent with patient was for coordination of care (as documented) and [id number] counseling of patient and/or family. Dictated By: Fabiola Marinelli MD DD/ [id number] Signed By: <Electronically signed by MD Fabiola Marinelli> 08/20/22 2[address] [facility] Work Phone: [phone] 113-332809-08-2022 Progress note Author Fabiola Marinelli [facility] July 10, 2022 5:15pmNote Date/TimeSept2021 10:07[facility] at [address] [address] Hem/Onc Follow Up Note - OP Signed Patient: Mojgan Pérez MR#: [id number] : 1955 Acct:[id number] Age/Sex: 66 / F Type: REG RCR Copies to: MD Yinka Downey MD Ehsan Malek, MD~ Subjective Date/Time of Service: Date of Service: 07/10/2022 Time of Service: 10:06 Chief Complaint: Patient is here today for a 2 month follow up visit for multiple myeloma. HPI: 07/10/2022: Mojgan is here for 2-month follow-up of myeloma labs. No changes in medical history and platelet count remains in the 40-50,000 range without bleeding. We held her Pomalyst (as well as daratumumab) this week due to absolute neutrophil count of 300 without any recent infections. She previously held it for 1 week due to neutropenia, took 1 tablet, then had to hold a second week due to neutropenia. We reviewed her kappa/lambda light chain ratio which continues to progress in the wrong direction (total lambda light chains now increased from 109 to 125.7 with ratio from 0.11 to 0.08). Her progressive cytopenias and worsening light chains likely reflects progression of myeloma. We could repeat her bone marrow biopsy but her most recent bone marrow biopsy on10/09/2021 showed hypercellular bone marrow (30%) with slight megakaryocytic and granulocytic hyperplasia and only 1.5% plasma cells (Lambda restricted by flow cytometry). This likely would not change her current management and I discussedher case with Dr. Benavidez of malignant hematology who recommended considering carfilzomib (Kyprolis) with cyclophosphamide. I will contact patient to coordinate baseline echocardiogram forKyprolis and likely she will require dosereductions for her underlying hepatic dysfunction and chronic cytopenias. AfterI reviewed dosing with Dr. Benavidez and pharmacy and review her echocardiogram, wewill coordinate follow-up for change in therapy and chemotherapy consent. For now we will continue daratumumab with altered dose of Pomalyst to 2 mg twice weekly ( and Mondays) until change in therapy. I will not likely send dose reduction of Pomalyst due to planned change in therapy. Moderate complexity 35 minutes for coordination of care. 05/07/2022: Improved rash on 2 mg of Pomalyst, now mild pruritus. Platelet count is 48,000 without bleeding issues. Continues weekly prednisone. Daratumumab isnow monthly since early April. Repeat kappa/lambda light chain ratio slightly higher (106 to 109) But the upward trend is starting to flatten out. F-18 Axumin PET/CT shows no new lesions, relatively stable from 1 year ago. For now given her stable symptoms and pronounced cytopenias, we will continue her current dosing daratumumab/Pomalyst/dexamethasone. Next follow-up with me in 2 months. She will return sooner for issues arise. Moderate complexity visit over 35 minutes. 04/09/2022: Mojgan continues every 2-week durvalumab with Pomalyst now 2 mg daily (dose reduced due to diffuse rash). She is now day 14 of the cycle and isnoted to have platelet count of 40,000 (no associated mucosal bleeding, bright red blood per rectum, or hematuria). No recurrent rash on this dose. She continues her weekly prednisone. I recommended changing her schedule of Pomalyst to 2 mg daily for days 1 through 14, off days 15 through 28 cycle and continuing daratumumab. Her most recent immunoglobulins have shown a steady trend upward for lambda light chain and decrease of kappa/lambda light chain ratio, however since she is now stabilizing her dosing of daratumumab/Pomalyst/dexamethasone I recommend continuing her current dosing for1 more cycle with repeat kappa/lambda light chain ratio in another month. In addition I will set her up for F-18 Axumin PET/CT to compare to PET/CT from 1 year ago (her skeletal survey showed no lesions 6 months ago). She denies any current bone pain.She will proceed with daratumumab dose as previously orderedtoday. 03/19/2022: Mojgan is here for follow-up after adverse cutaneous reaction to her first cycle of Pomalyst. She noted that after starting her first dose of Pomalyst 3 mg daily on 03/05/2022 that about 1 week later on 03/13/2022 she had a diffuse rash all over that was pruritic with increased erythema. She did not have nausea, vomiting, constipation, diarrhea, dyspnea, or any other adverse reactions. She did have a decline of platelet count to 41,000 this week which may be due to her Pomalyst. She called the pharmacy and was instructed to discontinue Pomalyst on 03/13/2022. Her rash has mostly resolved with no furtherpruritus but she still has a few macular lesions over the legs. She has been using Benadryl and topical cortisone cream with improvement of the rash. Otherwise her laboratories are stable. She does have an increased kappa/lambda light chain ratio from 03/05/2022 but this was her first day of therapy. I recommended resuming Pomalyst at next dose level 2 mg daily as soon as new medic ation arrives for 3 weeks on 1 week off. If she has recurrent rash she will again stop and we will consider further dose adjustment. Due to her thrombocytopenia we will hold her daratumumab today andconsume with first day of Pomalyst next week. She may follow-up in about 3 to 4 weeks, possibly with virologist covering at that time. Patient expressed understanding. 02/19/2022: Mojgan is here for follow-up--no new symptoms but her platelet countdropped to 48,000 last week and we are again holding her Revlimid. She has not had any bleeding or infection recently, but she has had uptrending lambda light chains and we discussed changing her therapy from lenalidomide to pomalidomide and continuing her daratumumab which is currently every other week. Her only other concern is constipation which is likely related to her pain medications. ANC was 800 today. --Today we reviewed chemotherapy counseling for lenalidomide in combination withdaratumumab/dexamethasone (stopping Revlimid). Common toxicities were reviewed to include allergic reactions, myelosuppression, thrombosis, fatigue, nausea, vomiting, constipation, diarrhea, mouth sores, and risk of secondary malignancies. Other toxicities may include pneumonitis, neurologic, hepatic andrenal toxicities. The patient signed informed consent and will follow-up as directed. Planning a trip to [place] on March 06, therefore we will hold Revlimid until arrival of her pomalidomide, then have oral chemotherapy visit. We are starting pomalidomide at 3 mg daily days 1 through 21 every 28 days due to baseline liver dysfunction. Follow-up cycle 1 week 2. We will recheck her baseline myeloma labs on start day of pomalidomide with daratumumab. 01/22/2022: Mojgan has no new complaints. She was seen by Dr. Benavidez at for evaluation for transplant and CAR-T options but given her profound thrombocytopenia, neither of these options are felt tuyet optimal for her. She has had gradual worsening of her lambda light chains without any change of renal function or hypercalcemia. Her chronic thrombocytopenia has remained in the 40- 50,000 range which is lower than her prior baseline. I reviewed her options with Dr. Benavidez and it is difficult to assess best options due to her chronic thrombocytopenia but standard of care at this point would be to continue her daratumumab and transition from the lenalidomide to pomalidomide. We will follow closely with weekly CBCs to determine if thrombocytopenia worsens on thisregimen. I will defer changing her regimen for 1 month since she is starting a new cycle of lenalidomide and has had slow progression of her lambda light chains. She will return in 1 month and will discuss pomalidomide and signed in formed consent. Patient is in agreement with this plan. 12/18/2021: Mojgan is here for 3-month follow-up. She has not had any significant changes in medical history other than testing positive for coronavirus infection in early November 2021. She has not been immunized for coronavirus. She notes persistent fatigue but no bone pain. No other recent infections or bleeding episodes. She recently changed from weekly to now every 2 weeks daratumumab 16 mg/kg and remains on low-dose lenalidomide 5 mg daily for2 weeks on 1 week off due to prior thrombocytopenia worsening. October 2021 skeletal survey showed no osteolytic lesions suggestive of myeloma. Initially she had improvement of her platelets to 70-100,000 but today platelets are down to 54,000. She also had some improvement of leukopenia but this is again down to 2800 with ANC 1300 today. Urinerandom M spike is not observed, but she has had progressive increase of her lambda light chains from 30 in December 2020 to 60.2 in October 2021. [place] lambda ratio has also started to decline to 0.21 in October 2021. For now I'm continuing her daratumumab with Revlimid at current dosing, but I contacted Dr. Benavidez at [facility] for CAR-T celleligibility. If he has recommendations to change her therapy, I will let her know. Otherwise I will have her follow-up with me in 1 month (she will have repeat myeloma labs 1 week prior to visit). 09/20/2021: After telephone consultation with Dr. Benavidez at , we resumed repeat loading doses of weekly daratumumab 16mg/kg and changed to low dose lenalidomide 5mg daily. She has had 2 courses of antibiotics for sinus infection over the past month and was noted to have neutropenia with ANC 900, platelets 44,000 week 2 of Revlimid, therefore this was held for one week and resumed Thursday after ANC returned to 1000. Platelet counts have persisted at 40-50,000 range without active bleeding. Otherwise tolerating therapy well. Still improved hip pain and ambulation after recent course of palliative radiation therapy. For now we will continue Daratumumab with Revlimid and Dexamethasone as ordered with weekly CBC. Gradually increasing lambda light chains--pending evaluation at for CAR-T celltherapy eligibility (has not yetbeen contacted for appointment). 4 week f/u with me with CBC, CMP, and myeloma labs (follow quant immunoglobulins and [place]/Lambda light chain ratio with skeletal survey in 2 weeks so results available for appointment). 08/30/2021: Mojgan is here for 2-week follow-up for completion of her palliative radiation therapywith significant improvement of pain in her right hip and pelvis. We sent her for echocardiogram performed 08/23/2021 at [facility] [place] as baseline for possible Kyprolis therapy. This returned with ejection fraction 60% which is normal with grade 1 left ventricular diastolic dysfunction and 1+ tricuspid valve regurgitation and trace to 1+ aortic valve regurgitation.Otherwise unremarkable. I discussed her case with Dr. Benavidez of malignant hematology at [facility]. He advised against Kyprolis therapy given her underlying liver dysfunction and recommended repeating loading doses of daratumumab weekly as well as low-dose lenalidomide which we will start at 5 mg daily since she has chronic thrombocytopenia. We will send for CAR-T therapy as a possible therapeutic option. The patient agreed with changing daratumumab to weekly and we will haveher sign consent next week for change to low-dose lenalidomide therapy. Next follow-up with me will be in about 2 weeks for week 2 lenalidomide with daratumumab. 08/16/2021: One month followup, she recently completed palliative radiation therapy to right hip and pelvis. Platelet count still in 50,000 range with increased bruising but no bleeding. Still has some pain in right hip but slowlyimproving after radiation therapy. Slowly worsening lambda light chain --she is scheduled for ECHO next week. We discussed possibly changing therapy from Daratumumab, Velcade, Dexamethasone to Kyprolis, low dose lenalidomide, dexamethasone if adequate cardiac function. I will discuss this with Dr. Benavidez for dosing and determine if CAR-T therapy is another possible option (although we may be limited due to chronic thrombocytopenia and liver disease). Followup 2-3 weeks to review results and possible consent for change in therapy. 07/17/2021: 2-month follow-up on multiple myeloma. She reports that Thursday she developed severe painin the right leg that started proximal to the knee creating it to the hip. She had increased pain with weightbearing on the right and has been using a walker at home secondary to this. She did not feel a pop or shift in ambulation, but has been using her Percocet for pain control at home. In reviewing her laboratories platelet count remains in the 52,000 range and she is otherwisPe tolerating daratumumab well. I recommended sending for right hip, femur, and knee plain film imaging that did not show any fracture. She does have a gradually rising lambda light chain but no other significant changes in her labs. I reviewed her case with Dr. Cheng of orthopedic surgery who also reviewed her prior PET/CT showing uptake in this area. We will obtain a right hip MRI, keep her completely nonweightbearing on the right leg with walker for transfers and she has an urgent orthopedic follow-up following her MRI. I will follow-up with her in 1 month to review management and we will determine if she requires prophylactic kenton for stability of the hip based on herMRI. 05/24/2021: Here to followup 05/03/2021 bone marrow biopsy--noted to have decreased cellularity 25%, flow cytometry with 0.2% plasma cells and a 1.5% monoclonal B- cell population. FISH showed 13q and 1qabnormalities but normal cytogenetics. No myelodysplasia seen. I reassured her that recent thrombocytopenia is more likely related to splenic sequestration from liver disease and not worsening myeloma. For now continue current regimen. Will also recheck B12, folate, and iron profile with next labs--followup in 2 months with myeloma labs, sooner prn. 04/24/2021: 1 month followup to review PET/CT. Over the past 2 days, she notes episodes of sharp left sided neck pain over sternocleidomastoid muscle and mastoid area. No radiculopathy down left upperextremity. No new side effects of Daratumumab. F18 PET/CT shows largely unchanged diffuse uptake through multiple bony sites in axial and articular skeleton. Lambda light chains risingover past 2 month and decline of platelet count to 57,000 without bleeding. MRIof thoracic spine did not show significant thoracic canal stenosis. Due to worsening neck pain with extensive uptake on F18 PET/CT--we will send for cervical MRI. Palliative medicine has increased Percocet to tid. We will repeat bone marrow biopsy due to rising lambda light chain and falling platelet count to determine if progression of myeloma noted. This will be scheduled in the next 1-2 weeks. 03/28/2021: 2 month followup for multiple myeloma. More recently notes neck andleft shoulder pain. Fatigue and constipation stable. Labs show stable anemia and thrombocytopenia. Serum M-spike now asymmetric gamma (no quantifiable spike). Slowly improving IgG to near normal. [place]/lambda light chain ratio normal with mildly increased lambda light chains. MRI of thoracic spine for evaluation of increasing left shoulder pain. For now we will continue current dosing of Daratumumab and recheck F18 PET/CT for response in late April 2021. 01/21/2021: Mojgan is accompanied by her daughter for 2 month followup--now Daratumumab maintenance. She notes persistent fatigue and recently added as needed laxatives to stool softener for management of constipation. Persistent left hand pain--correlates to an area of bone uptake on PET/CT. Overall F18 PET/CT appears stable with no new areas if FDG avidity (still extensive bone FDGuptake). We reviewed prior plain xrays of left hand from November--she agrees toevaluation by orthopedic surgery (determine if biopsy or steroid injections). M-spike and kappa/lambda light chains pending. CBC (platelets 60-70,000); CMP stable. Will followup in 2 months with exam and labs. 11/26/2020: Mojgan is accompanied by her daughter for 2 month followup--now Daratumumab maintenance. Stable leukopenia/low platelet 70,000. Notes 3 days of hematuria and mild dysuria. Sending UA and possible culture. Otherwise no new bone pain. Blood sugars stable. M-spike and kappa/lambda light chain ratiostable. Next f/u 2 months after one year f/u PET/CT to determine response to therapy. 09/24/2020: Mojgan presents (accompanied by her daughter) for cycle 8, week 2 followup mg/kg IV weekly, Dexamethasone 20mg weekly, and Velcade 0.7 mg/m? now sq once weekly for every 3-week cycle (21 days). She notes neuropathy symptoms are stable. Tolerating therapy well without fatigue. No bleeding and thrombocytopenia stable in 60-70,0000 range. On 10/02 she will be due for maintenance therapy with Daratumumab alone once per month. I will f/u with her in 2 months with myeloma labs, sooner as needed. Velcade and Dexamethasone will be stopped after 8 cycles. 08/13/2020: Mojgan is here for cycle 6, week 2 (day 14) daratumumab 16 mg/kg weekly, Velcade 0.7 mg/m? now sq once weekly for every 3-week cycle (21 days), and dexamethasone 20 mg weekly. No new symptoms--improving thrombocytopenia to 79,000 and improved leukopenia. 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 Still has improvement of M-spike, IgA normal and decreased lambda light chain and K/L ratio. We discussed that week 25 in Oct she will change to monthly daratumumab with weekly Velcade (1mg/m2) and Dexamethasone. Continue to follow every 6-8 weeks until maintenance schedule. 06/18/2020: Mojgan is here for cycle 3 week 3 (day 21) daratumumab 16 mg/kg weekly, Velcade 0.7 mg/m? now sq once weekly for every 5-week cycle (35 days), and dexamethasone 20 mg weekly. Tolerating well with stable leukopenia and thrombocytopenia. Mild increased symptoms of hand and foot neuropathy, but no limitation in activity. Now following with diabetes management clinic with variable glucosecontrol. We reviewed lower IgA (now M-spike IgG kappa after Daratumumab--previously IgA lambda). Lambda light chain has decreased from 516 to 41.3 to now 18.5 with normalization of K/L ratio. Continue followup myeloma labs in 6 weeks, visit in 8 weeks. 05/21/2020: Mojgan is here for cycle 2 (week 7 overall) daratumumab 16 mg/kg weekly, Velcade 0.7 mg/m? now sq once weekly for every 5-week cycle (35 days), anddexamethasone 20 mg weekly. Tolerating well with stable leukopenia and thrombocytopenia. No significant neuropathy. Noted to have improvement in lambda light chains. No further daratumumab infusion reactions. No infections,stable constipation, pain control improved. No other complaints. Continue monthly f/u with myeloma labs. --Diabetes management--added insulin on dexamethasone days. Hyperglycemia improving. 01/18/2020 (phone followup)--The patient's son was available by phone and her daughter was contactedin a separate phone call as patient presented unaccompanied due to COVID-19 precautions in our clinic during the current epidemic. Bone marrow biopsy results were reviewed as follows from procedure pe rformed 01/26/2020: --Bone marrow biopsy was suboptimal for evaluation. --Increased lambda light chain restricted monoclonal plasma cells (1.9% by flow cytometry, approximately 6% and aspirate count, but 50% by immunohistochemical stains [id number]). Sideroblastic iron present, negative for ring sideroblasts. Peripheral blood smear with mild red blood cell anisocytosis and polychromasia, leukopenia with absolute neutropenia (1000) and thrombocytopenia (54,000) consistent with prior baseline. Note: I discussed the results with Dr. Crook 01/26/2020. Preliminary findings were also discussed with Dr. Cummings 01/27/2020. Morphologic findings, immunohistochemical stains, flow cytometry, and ancillary studies may under represent the extent and severity of disease. The results of FISH myeloma panelwith prognostic markers and cytogenetic analysis are pending. --Given the patient's hip pain and presence of lytic lesions, she meets clinicalcriteria for activemyeloma. Given her hip pain and lytic lesions in weightbearing areas she was offered radiation therapy. She had a limited courseof hypofractionated palliative therapy to bilateral proximal femurs [address] Ahn. We discussed that given the COVID-19 epidemic and absence of othersignificant changes other than bony lesions (normal renal function, normal calcium, stable cytopenias), I would defer active therapy for myeloma for 4 to 6 weeks. Since she has significant history ofliver disease I will discuss her case with Dr. Piter Benavidez at [facility] malignant hematology for optimal regimen. The patient is not a transplant candidate given her nonalcoholic steatohepatitis and chronic thrombocytopenia but may be a candidate for either doublet therapy (Revlimid/dexamethasone) or triplet therapy with either Velcade/Revlimid/dexamethasone or daratumumab/Revlimid/dexamethasone. --02/03/2020: Mojgan presented unaccompanied for follow-up of bone marrow aspiration and biopsy performed by Dr. 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 The patient had been noting increased left hip pain over the past several months andplain films of the pelvis and bilateral femurs did show subtle lucencies in the bilateral proximal femurs corresponding to PET/CT findings but no other additional sclerotic lesions identified. No pathologic fractures were seen. --03/05/2020: Mojgan notes improvement of bilateral hip pain since radiation. No other changes in medical history in the past month--no infections, normal renal function, no hypercalcemia. Stable platelet counts without bleeding. She was given written literature regarding Dexamethasone, Velcade (that would be dose reduced to 0.7mg/m2 twice weekly), weekly Daratumumab and Revlimid, but I will deferdecision of which regimen to use until discussion in malignant hematology tumor board. Also referring for infusion port placement prior to initiating therapy. Sign informed consent prior to initiating therapy. --Discussed with Dr. Benavidez who favors Daratumumab combination--will request prior liver biopsy and records from [facility] liver clinic. The patient and her son (by telephone) expressed understanding and will follow- up as directed in 2 weeks for consent and likely start of therapy. --04/02/2020: Mojgan presents after infusion port placement at [facility] by interventional radiology due to platelet count 40,000--she had increased bruising at site post procedure, but this has completely resolved. Her hip painis well controlled since completion of palliative radiation and no newareas of pain. She has previously reviewed information regarding Daratumumab (first dosesplit 8mg/kg IV D1,D2, then if well tolerated 16mg/kg IV weekly), Velcade at about 50% dose (for liver dysfunction) 0.7mg/m2 D1,D4,D8, D11, and [id number] IV weekly--repeat for every 3 week cycles 1st 3 cycles. She will take chemo class and likely start therapy within 2 weeks with toxicity visit in 3 weeks. Today we reviewed chemotherapy counseling for Daratumumab, Velcade, and Dexamethasone. Common toxicities were reviewed to include infusion reaction including rash/dyspnea/wheezing, myelosuppression, fatigue, nausea, vomiting, constipation, diarrhea, mouth sores, and alopecia. Other toxicities may in cludepneumonitis, neurologic, thromboembolism, hyperglycemia, hepatic and renal toxicities. The patient signed informed consent and will follow-up as directed. --04/19/2020: Mojgan is here for cycle 1 week 2 daratumumab 16 mg/kg weekly, Velcade 0.7 mg/m? twice weekly for first 2 weeks of every 3-week cycle, and dexamethasone 20 mg weekly. She did have an infusion reaction with first daratumumab with dyspnea and flushing but this improved after first dose and shehas not had recurrent infusion reactions. We have continued Velcade despite platelet counts in the 40,000 range without bleeding as we know that her baseline platelet counts remain in this range and she has not had any significant change from her baseline. Dexamethasone has caused hyperglycemia with blood sugars up to 400 and we are referring to diabetes management clinic. Otherwise she denies any significant nausea, emesis, fever, chills, night sweats, constipation, diarrhea, rash, mouthsores, or alopecia. She has not hadany change of baseline neuropathy. Liver function tests remain stable. She notes that her hip pain is well controlled since prior palliative radiation and she saw radiation oncology earlier this week with no new recommendations. I will send her myeloma labs including serum and urine protein electrophoresis, quantitative immunoglobulins, and serum kappa/lambda light chains in 2 weeks andfollow-up with her in 3 weeks. She may be seen sooner if new issues arise. This is a 66-year-old lady on chronic disability has a history of arthritis, diabetes mellitus, hypertension, COPD, GERD, and fibromyalgia who was previouslyfollowed [facility] for chronic mild to moderate thrombocytopenia. She states that she was followed with Dr. Kumari prior to his senior care and was told that she had an elevated protein level as well as thrombocytopenia but never had clinical bleeding. She is 4 para4 without complicationsand was never told that she was thrombocytopenic while . She is had multiple prior surgicalprocedures without any clinical bleeding. She had been recommended for a pain procedure with Dr. Hiram ibarra he declined to do the procedure because her platelet count was less than 100,000. For this reason she received 2 platelet transfusions, with little improvement of her platelet count and her second transfusion resulted in throat tightening due to allergy to platelets . She has never been treated with steroids and has never been told that she has immune thrombocytopenia. She has mild leukopenia with relative neutropenia, absolute neutrophil count of 400-800 and mild lymphocytosis. Hemoglobin is normal. She has not had any bright red blood per rectum or epistaxis. She has no history of bleeding within the familyhowever does have a mother and sister diagnosed with colon cancer, a brotherdiagnosed with lung cancer, and another sister diagnosed with breast cancer. She had prior pain in the right hand mainly at the first MCP joint with some associated swelling and right foot pain and was evaluated by podiatry. She was told that her blood tests were negative forgout. She had screening with MALLORY, CCP, and rheumatoid factor all of which were negative. She says that she previously saw Dr. Petersen for cirrhosis but did not know of any specific therapy. We reviewed these findings from her liver ultrasound ordered by Dr. Benavidez Summer 2016. Initial consultation with me March 16, 2017. --The patient has been followed by me for some time for diagnosis of smoldering myeloma with a prior bone marrow biopsy May 2017 showing 15% plasma cells but the patient remained asymptomatic without bone pain or other CRAB criteria for therapy. She is also noted to have an ascending aortic aneurysm and has chronicliver disease with cirrhosis secondary to nonalcoholic steatohepatitis. She haschronic thrombocytopenia without bleeding ranging from 50-100,000 this is felt to be due to sequestration from her nonalcoholic steatohepatitis. She was previously on a liver transplant list but was recently notified that she is no longer a candidate for liver transplant. She has had chronic pain from f ibromyalgia but noted increasing bilateral hip and upper thigh pain over the last 6 months. She also is followed for EGD/colonoscopy with last documented procedure 09/21/2018: 1. Normal EGD, 2. Mild sigmoid diverticulosis, 3. Internal hemorrhoids, grade 2, 4. Anal fissure with active bleeding cauterized by bipolar cautery Bone osseous survey in June 2019 showed osteopenia and degenerative changes but no lytic or blastic lesion. Patient had an F-18 PET scan 01/02/2020 which showed multiple areas of involvementof bones with increased SUV activity. She was contacted with these results by phone and I recommended bone marrow aspirate and biopsy for assessment and analysis. Her prior labs were reviewed. Her SPEP does not show anymonoclonal gammopathy. On VAHID there appears to be a trace of monoclonal gammopathy. Free light chain ratio is less than 100. There is no evidence of renal sufficiency. Patient is not anemic. She doeshave some abnormal areas on bone scan. - Summary of Therapies Summary of Therapies: 1. 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 2. She underwent a single dose of palliative radiation therapy to bilateral hips, receiving 800 cGyto right and left hip in 1 fraction in separate vaz (with a single isocenter). The treatments were given with AP/PA vaz [id number] MV photons and MLC blocks. 3. Deferred active therapy for myeloma 2 months given COVID-19 epidemic with increased risk of myelosuppression and viral transmission of contacts. --Follow-up 03/05/2020 I discussed her case with Dr. Piter Benavidez at malignant hematology. --Given her significant hepatic dysfunction, I presented her case at malignant hematology tumor board to discuss optimal therapy. 4. Cycle 1 day 1 04/10/2020: Dose reduced Velcade 0.7 mg/m? twice weekly (day 1,day 4, day 8, day 11)every 3 weeks with dexamethasone 20 mg weekly and daratumumab 16 mg/kg weekly of each 21-day cycle.After first week, Velcade decreased to 0.7mg sq weekly due to thrombocytopenia. --We will need to watch liver function, platelet count, and neuropathy closely on Velcade. 5. Cycle 9 day 1 10/02/2020: Daratumumab 16mg/kg once monthly maintenance therapy until progression. 6. 07/31/2021: Palliative radiation therapy to right supra chondral/soft tissuearea of hip which is PET positive. She received a dose of 3000 cGy in 10 fractions from 07/31/2021 to 08/15/2021 over 15 elapsed days 7. 08/30/2021: Right hip pain improved after radiation. Due to disease progression with persistent cytopenias, changed to repeat loading doses of daratumumab 16 mg/kg weekly for cycles 1 through 3 with Revlimid 5 mg daily for 3 weeks on 1 week off. Held Revlimid second week due to neutropenia with sinus infection, resumed 3 days ago (09/17/2021). Referred for CAR-T therapy evaluation. 8. 12/18/2021: Daratumumab is now 16 mg/kg every 2 weeks with Revlimid 5 mg daily for 2 weeks on 2 weeks off due to neutropenia and thrombocytopenia. Stillpending evaluation for CAR-T therapy. 9. 01/22/2022: Patient is not deemed a candidate for stem cell transplant or CAR- T therapy at this time. Discussed changing from current Revlimid to pomalidomide with continued daratumumab 16 mg/kg every 2 weeks. Plan change in therapy in 1 month. 10. 02/19/2022: Continue daratumumab 16 mg/kg IV every 2 weeks and changed to pomalidomide now 3 mg daily days 1 through 21 of each 28-day cycle (lower dose due to baseline liver dysfunction) -- 03/19/2022: Patient was noted to tolerate Pomalyst only 1 week (03/05- 03/13/2022)due to grade 3 rash. This resolved after stopping medication 1 week later. 1 dose level reduction Pomalyst to 2 mg daily days 1 through 21 of each 28-day cycle. Also holding daratumumab daily for platelet count of 41,000 and will resume at full dose with first dose of Pomalyst. -- 04/09/2022: Platelet 40,000 without bleeding. Will continue now monthly Daratumumab with change ofPomalyst to 2mg D1-14 each 28 day cycle (off 2 weeks due to low platelets). 11. Patient has ongoing cytopenias with rising lambda light chains. Since she has been unable to tolerate Pomalyst due to cytopenias, I am evaluating her for carfilzomib (dose 20mg/m2 day one then 56mg/m2 D8, D15) with cyclophosphamide 300mg IV weekly and weekly dexamethasone. Baseline echocardiogram is ordered and we will follow closely for her chronic cytopenias and liver dysfunction. She will return for consent and dosing after baseline studies and discussion with pharmacy. ROS Details: All systems reviewed & no additional complaints except as documented Subjective/ROS - Narrative: Constitutional: No Chills, No Diaphoresis, Stable Fatigue, No Fever, No Malaise, No Night Sweats, No Weakness, No Weight Gain, No Weight Loss Gastrointestinal: No Abdominal Pain, No Black Stool, No Bloating, No Bloody Stool, positive for constipation, No Diarrhea, No Dysphagia, No Hematemesis, No Nausea, No Postprandial Pain, No Rectal Bleeding, No Rectal Pain, No Vomiting, Other (chronic gastroesophageal reflux stable) --No jaundice or ascites but patient has longstanding nonalcoholic steatohepatitis with cirrhosis, previously followed by [facility] gastroenterology. Cardiovascular: No Chest Pain, No Edema, No Palpitations, No Syncope Genitourinary: No Discharge, No Dysuria, No Flank Pain, Frequency (chronic andunchanged), Resolved Hematuria, No Incontinence, No Nocturia, No Urgency, No Urinary Retention Musculoskeletal: + left shoulder and neck pain as per HPI (no thoracic cord compression). Improvement of prior bilateral hip/thigh pain since radiation; positive for intermittent lumbar back pain, NoChest Wall Tenderness, Improvement of prior Joint Pain, Muscle Stiffness, Myalgia (history of fibromyalgia), --unremarkable skeletal survey June 2019. 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 12/2020: F-18 PET/CT stable. 04/2021 F-18 PET/CT stable. Right hip pain mildly improved after palliative radiation. 04/30/2022 repeat Axumin F-18 PET/CT stablefrom 1 year ago. HEENT: No Blurred Vision, No Discharge, No Ear Pain, No Epistaxis, No Rhinorrhea, No Sore Throat--patient was seen in emergency department November 2019 with persistent epistaxis. She was treated withnasal clip and packing andwas advised to continue Afrin. No recurrent bleeding. 2 courses of antibio ticsin Aug-Sep 2021 for recurrent sinusitis Respiratory: No Cough, No Hemoptysis, mild Shortness of Breath (chronic and unchanged due to COPD),No Sputum, No Wheezing--shortness of breath with daratumumab reaction dose 1 04/10/2020 (given a split dose over 2 days). No recurrent reaction since first dose. Neurological: No Dizziness, Stable Numbness/Tingling (reports long-standing bilateral foot numbness--unchanged since starting low-dose Velcade 04/10/2020), NoPre-existing Deficit (no history of stroke or seizure), intermittent headache Hematologic/Lymphatic: No significant bleeding thrombocytopenia from sequestration/myeloma disease,Bruises Easily, No Enlarged Lymph Nodes, Other (reports allergy to prior platelet transfusion) Endocrine: Excessive Sweating (hot flashes, postmenopausal) Flushing, No Intolerance to Cold, Intolerance to Heat Psychiatric: No Depressed Mood, No Insomnia Integumentary: No Jaundice, No Lesions, positive for diffuse rash on Pomalyst 3mg daily as per HPI.1 level dose reduction to 2 mg daily with only mild rash/pruritus. Now due to cytopenias Pomalyst is reduced to 2 mg twice weekly on Mondays and . Allergic/Immunology: Previous pruritus with Pomalyst rash improved. PMFSH - History Attestation statement: The following information was validated with the patient. Source: Old Records Reviewed - Medical History Medical History: Medical History (Last Reviewed 07/10/22 @ 15:43 by Fabiola Marinelli MD) Aortic aneurysm COPD (chronic obstructive pulmonary disease) Diabetes Fibromyalgia GERD (gastroesophageal reflux disease) Hypertension Iron deficiency Multiple myeloma Neutropenia Smoldering multiple myeloma (SMM) Smoldering myeloma Temporary low platelet count - Surgical History Surgical History: Surgical History (Last Reviewed 07/10/22 @ 15:43 by Fabiola Marinelli MD) H/O: hysterectomy History of appendectomy History of cholecystectomy - Social History Smoking Status: Former smoker Tobacco Type: cigarettes Substance Use Type: None Social History Comments: [facility] Home Medications & Allergies Allergies erythromycin base [From E-Mycin] Allergy (Verified 07/10/22 09:57) Hives latex Allergy (Verified 07/10/22 09:57) Unknown Reaction moxifloxacin [From Avelox] Allergy (Verified 07/10/22 09:57) Hives Quinolones Allergy (Verified 07/10/22 09:57) Unknown Reaction tetracycline Allergy (Verified 07/10/22 09:57) Unknown Reaction Home Medications carvedilol 12.5 mg tablet 12.5 mg PO BID 11/20/17 [History Confirmed 07/10/22] duloxetine 60 mg capsule,delayed release 60 mg PO DAILY 11/20/17 [History Confirmed 07/10/22] insulin detemir U-100 100 unit/mL (3 mL) subcutaneous pen 26 units subcut QHS 11/20/17 [History Confirmed 07/10/22] oxycodone 10 mg tablet 10 mg PO TID PRN Pain 11/20/17 [History Confirmed 07/10/22] albuterol sulfate 90 mcg/actuation aerosol inhaler 2 puff inhalation Q6H PRN Shortness Of Breath 11/24/17 [History Confirmed 07/10/22] fluticasone 250 mcg-salmeterol 50 mcg/dose blistr powdr for inhalation (Advair Diskus) 1 inh inhalation Q12H PRN Shortness Of Breath 11/24/17 [History Confirmed 07/10/22] omeprazole magnesium 20 mg tablet,delayed release (Prilosec OTC) 40 mg PO DAILY 11/24/17 [History Confirmed 07/10/22] cholecalciferol (vitamin D3) 25 mcg (1,000 unit) capsule (Vitamin D3) 1,000 unitPO DAILY 04/13/19 [History Confirmed 07/10/22] metformin 500 mg tablet,extended release 24 hr 500 mg PO BID 03/05/20 [History Confirmed 07/10/22] ondansetron HCl 8 mg tablet (Zofran) 8 mg PO TID PRN Nausea #30 tabs 04/02/20 [Rx Confirmed 07/10/22] insulin NPH isoph U-100 human 100 unit/mL subcutaneous suspension (Novolin N NPHU-100 Insulin isophane) 20 unit subcut DIRECTED 05/21/20 [History Confirmed 07/10/22] nystatin 100,000 unit/mL oral suspension 100,000 unit buccal DAILY oral pain 90 days #500 mL 06/18/20 [Rx Confirmed 07/10/22] semaglutide (Ozempic) 0.5 mg subcut QWEEK 09/24/20 [History Confirmed 07/10/22] cyanocobalamin (vitamin B-12) 5,000 mcg capsule 5,000 mcg PO QWEEK 10/29/20 [History Confirmed 07/10/22] vitamin B12 0.5 mg-folic acid 1 mg tablet 1 tab PO DAILY 03/28/21 [History Confirmed 07/10/22] diazepam 5 mg tablet (Valium) 5 mg PO DIRECTED 1 day #2 tabs 07/17/21 [Rx Confirmed 07/10/22] gabapentin 300 mg tablet 600 mg PO TID 07/26/21 [History Confirmed 07/10/22] acyclovir 400 mg tablet 400 mg PO BID 90 days #180 tabs 12/24/21 [Rx Confirmed 07/10/22] dexamethasone 4 mg tablet 20 mg PO ONCE 90 days #60 tabs 03/26/22 [Rx Confirmed 07/10/22] lactulose 20 gram/30 mL oral solution 20 g (30 mL) PO BID PRN Constipation #600 mL 04/09/22 [Rx Confirmed 07/10/22] potassium chloride 10 mEq capsule,extended release 10 meq PO DAILY #30 caps 05/22/22 [Rx Confirmed 07/10/22] ondansetron 8 mg disintegrating tablet 8 mg PO Q8H PRN Nausea #30 tabs 06/04/22 [Rx Confirmed 07/10/22] pomalidomide 2 mg capsule (Pomalyst) 2 mg PO DAILY 28 days #14 caps 06/24/22 [Rx Confirmed 07/10/22] Objective - Height/Weight Height/Weight: Height 5 ft 2.99 in Weight 80.104 kg BSA for Today's Weight 1.88 - Vital Signs Vital Signs: 07/10/22 09:57 Temperature 98.0 F Respiratory Rate 16 Blood Pressure [Right Arm] 130/82 02 Sat by Pulse Oximetry 98 Oxygen Delivery Method Room Air - Pain Generalized Pain Intensity: 3 Bilateral Hip Pain Intensity: 5 Left Hip Pain Intensity: 4 Lower Back Pain Intensity: 7 Left Neck Pain Intensity: 4 Back Pain Intensity: 0 Right Thigh Pain Intensity: 3 Bilateral Leg Pain Intensity: 5 Bilateral Shoulder Pain Intensity: 6 Left index finger Pain Intensity: 4 - Distress Screening Distress Screen Results: RN Distress Screening Start: 02/07/20 10:17 Freq: Status: Complete Protocol: Document 05/01/20 09:33 DB (Rec: 05/01/20 09:33 DB [facility]-[id number]) Distress Screening Distress Score: 0 No worry/distress Distress Screening Total 0 RN Distress Screening Start: 07/26/21 12:37 Freq: Status: Active Protocol: Document 07/26/21 13:20 DB (Rec: 07/26/21 13:20 DB [id number]) Distress Screening Distress Score: 2 Physical Concerns Pain Distress Screening Total 2 Physical Exam Narrative: Patient is alert and oriented x3. HEAD / FACE: Normocephalic. No tenderness to palpation over scalp, no sinus tenderness to palpation. EYES: Pupils are equal and reactive to light. Conjunctivae and lids are benign in appearance. Ocular movement intact. EARS: Hearing grossly intact. NOSE / MOUTH / THROAT: Nose, mouth, tongue and oropharynx exam without visible lesion. NECK / THYROID: Neck moderate limitation of range of motion--currently no significant tenderness over left sternocleidomastoid and mastoid bone. No cervical adenopathy on exam. Thyroid is symmetrical, without thyromegaly, masses or palpable nodules. LYMPHATIC: No palpable cervical, supraclavicular, axillary, or inguinal adenopathy. RESPIRATORY: Normal inspection. Lungs clear to auscultation and percussion. No wheezing, rales, rhonchi or rubs. Normal effort. Right chest wall infusion portwithout erythema. CARDIOVASCULAR: Regular rate and rhythm. No murmurs, gallops, or rubs. VASCULAR: Carotid, radial, femoral and pedal pulses present bilaterally. No bruits. ABDOMEN: Bowel sounds normoactive. Soft, nontender and non-distended. No hepatosplenomegaly. No masses. GENITOURINARY: No CVA tenderness. No suprapubic fullness or tenderness. No groinadenopathy. No evidence of hernias. INTEGUMENTARY: The skin is unremarkable. Bilateral lower extremity mild macularrash which is resolved from prior diffuse rash as per HPI. No suspicious lesions. No bruising or petechiae noted. BACK / SPINE: Mild tenderness cervical/upper thoracic spine without step off deformity. No lumbar tenderness. MUSCULOSKELETAL: Normal musculature, normal ROM upper and lower extremities, no crepitus. EXTREMITIES: Trace bilateral leg edema--improving. No cyanosis or clubbing. No Destini sign. NEUROLOGICAL: Alert and oriented. Cranial nerves intact. No gross motor or sensory deficits, patient ambulates unassisted. PSYCHIATRIC: No anxiety or evidence of depression. - ECOG Performance Status ECOG Score: 1 Results - Labs Labs: Diagram of Most Recent CBC and CMP 07/10/22 09:15 07/10/22 09:15 Labs - Last 7 Days 07/10/22 09:15: PHA Creatinine Clear 108.74, Sodium 139, Potassium 3.7, Mkaxbysr630, Carbon Jeyfhsw11.4, Anion Gap 11.3, BUN 8 L, Creatinine 0.51, Est GFR ( Amer) > 60, Est GFR (Non-Af Amer) > 60, Glucose 116 H, Calcium 8.8, Total Bilirubin 0.9, AST 28, ALT 24, Alkaline Phosphatase 100 H, Total Protein 5.1 L, Albumin 3.1 L, Globulin 2.0, Albumin/Globulin Ratio 1.6 07/10/22 09:15: Corrected WBC 2.1 L, Uncorrected WBC Count 2.1 L, RBC 3.54 L, Hgb 11.9, Hct 35.3, MCV 99.7, MCH 33.6, MCHC 33.7, RDW 16.0 H, Plt Count 53 L, MPV 8.6, Nucleated RBC % (auto) 0.1 07/04/22 10:20: PHA Creatinine Clear 120.42, Sodium 142, Potassium 3.7, Vctozclx171, Carbon Nqkokzw34.0, Anion Gap 14.7, BUN 8 L, Creatinine 0.47, Est GFR ( Amer) > 60, Est GFR (Non-Af Amer) > 60, Glucose 117 H, Calcium 9.1, Total Bilirubin 1.1, AST 31, ALT 24, Alkaline Phosphatase 94H, Total Protein 5.1 L, Albumin 3.1 L, Globulin 2.0, Albumin/Globulin Ratio 1.6 07/04/22 10:20: Corrected WBC 1.9 L, Uncorrected WBC Count 1.9 L, RBC 3.52 L, Hgb 11.8, Hct 34.9, MCV 98.9, MCH 33.5, MCHC 33.8, RDW 16.4 H, Plt Count 56 L, MPV 8.2, Neut % (Auto) 13.0, Lymph % (Auto) 61.7, Hodgeman % (Auto) 17.6, Eos % (Auto) 7.1, Baso % (Auto) 0.6, Neut # (Auto) 0.3 L, Lymph # (Auto)1.2, [place]eman # (Auto) 0.3, Eos # (Auto) 0.1, Baso # (Auto) 0.0, Nucleated RBC % (auto) 0.1, Platelet Estimate Decreased L, Plt Morphology Comment Normal, RBC Morphology Normal 07/04/22 10:20: IgG 463 L, IgA 44 L, IgM 17 L, Free [place] LC, Quant 10.6, Free Lambda LC, Quant 125.7 H, Free [place]/Lambda Ratio 0.08 L - Impressions No new imaging for review, baseline Echo for carfilzomib ordered. 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 She has high risk cytogenetics and I [facility] Her persistent thrombocytopenia made her ineligible forany clinical trials, and prevented her from receiving local pain procedures given her chronic low back pain. --05/2017 PET/CT images and reports performed for staging to exclude bone involvement with myeloma. 2 indeterminate areas of uptake thought to be degenerative arthritis vs early bone findings of myeloma (right parietooccipitalarea and upper sternum). She has remained asymptomatic [...] showed no lytic lesions and she has stableshoulder, hand, and right SI joint pain (although likely due to fibromyalgia. --Prior osseous survey 07/01/2019 showed osteopenia but no compression fractures or lytic lesions were identified. She had no significant change in myeloma labs(mild increase of urine M-spike, kappa/lambda ratio, and normal serum M- spike and quant immunoglobulins). Urine protein still undetectable, therefore will continue surveillance every 6 months with the same labs--no hypercalcemia, renaldysfunction (or proteinuria), anemia, or new bone symptoms. ------- --- --Due to COVID-19 epidemic, her 6-month follow-up [...] proteins with urine M spike 43.1 but totalprotein 34.4, with no reported urine creatinine. --We deferred immunosuppressive chemotherapy for about 1 month due to control ofsymptoms after palliative radiation and concern of potential peak of COVID-19 inlate January early March. --She presented for follow-up 03/05/2020 and we discussed potential therapy options (with son available by phone). --I discussed her case with Dr. Piter Benavidez of malignant hematology, possibly presenting the patient in hematology tumor board at [facility]. --Infusion port placed 03/22/2020 at [facility] due to low platelets. No complications. --03/12/2020: Myeloma labs with no serum M-spike, + urine M spike 22.2mg/24h (14%). Immunofixation IgA lambda specificity. IgA normal 227, Serum kappa 20.6, serum lambda 516.7, Free kappa/lambda ratio0.04. Normal renal function and calcium. Lower ANC 600 and platelets 40,000 --04/10/2020: Started cycle 1 day 1 of weekly dexamethasone 20 mg IV (careful to watch blood sugars with diabetes and known hepatic dysfunction), decreased dose of bortezomib 0.7 mg/m? twice weekly for2 weeks on 1 week off (due to known liver disease and thrombocytopenia), and daratumumab 8mg/kg D1,D2 IV first week,then 16 mg/kg IV weekly and we may consider Revlimid as a 4th medication if needed (deferred for worsening neutropenia and thrombocytopenia--I am reluctant to add this therapy initially). --------- --01/21/2021: One year f/u F18 PET/CT with stable FDG avidity, monoclonal labs (SPEP, Quant Igs, kappa/lambda ratio) all pending. Stable CBC and CMP. Persistent pain left hand 2nd MCP joint--increaseduptake on PET/CT but no lesion on left hand xray from 11/2020. Sending for ortho evaluation. For nowcontinue once monthly Daratumumab. F/u with myeloma labs and exam in 2 months, sooner prn. --05/24/2021: Bone marrow biopsy does not show significant progression although poor prognosis mutation 1q with 13q on FISH. Hypocellular with recent worseningplatelets without bleeding--will recheck B12, folate, and ferritin. [...] sent for plain films of the hip femurand knee showing degenerative changes but no acute [...] progression although she still has slow rise inlambda light chain and platelet count remains in [...] check. She will sign Revlimid consent Thursday. Sheis in agreement with this plan. --09/20/2021: Started daratumumab loading doses weekly with Revlimid on 09/04/2021. Held therapy forANC 900 and platelet 42,000 with sinus infection, now resolved and resumed Revlimid 5mg daily on 09/17. Will continue therapy as prescribed with weekly CBC and hold Revlimid as needed for cytopenias.Evaluation for CAR-T therapy at [facility]. Send myeloma labs and skeletal survey [...] current cycle of Revlimid with change to pomalidomide4 mg daily, follow weekly CBCs after change in therapy and determine optimal dose based on symptomsand cytopenias. Patient is in agreement with this plan. Next follow-up with me in 1 month and we will defer next light chain analysis until 1 month after change in therapy. --02/19/2022: Continued rise in lambda light chains and worsening thrombocytopenia. Today we reviewed informed consent for adding pomalidomide 3 mg daily days 1 through 21 every 28 cycle 2 every otherweek daratumumab. We are dropping Revlimid due to [...] initial cycle was only given 03/05-03/13/2022. Now thatradha has complete resolution of symptoms she may resume pomalidomide at 1 dose level reduction 2 mg daily for days 1 through 21 of each 28-day cycle. We are also holding her daratumumab today due to declining her platelet count 41,000 without bleeding. Repeat kappa/lambda light chain ratio was increased 80 on 5 4but this was her first dose of pomalidomide. Plan anticipate arrival of pomalidomide within the next 1 to 2 weeks and she may resume daratumumab on day1 of therapy. Her next follow-up will be [...] for following myeloma show normal mild increase herfree lambda from 87 to 106, kappa/lambda ratio decreased 0.10-0.09. I will give her 1 more month ofpomalidomide with daratumumab and dexamethasone. The pomalidomide dose will be changed to 2 mg p.o.days 1 through 14, off days 15 through [...] bony lesions. Her kappa/lambda light chain ratio remainsrelatively stable since early March (0.09-0.11) with free lambda light chainsnow relatively stable (106-109). I advised continuing her current regimen and reevaluating with kappa/lambda light chain ratio in 2 months. Continue current dosing and close observation due to platelet count 48,000. No signs or symptomsof infection. Patient is in agreement with this plan. --07/10/2022: Mojgan has no new symptoms, but continued cytopenias with 2 weeks of pomalidomide helddue to recurrent neutropenia and persistent thrombocytopenia (40-50,000). Continued uptrending lambda light chains consistent with progression of myeloma. We did discuss bone marrow biopsy, but this would not policy change clerk, therefore we will give Pomalyst (now decreasedto 2mg Thursday and only) with last dose Daratumumab tomorrow. 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 Will f/u ECHO and consent for therapy tomorrow. Plan discussed with Dr. Benavidez Malignant Hematology--recommends no dose reduction of Cytoxan, but transfusion support as needed since cytopenias may be due to progression of malignancy. This is a moderate complexity visit over 35 minutes for review of symptoms, cytopenias, myeloma labs, and adjusting dose of pomalidomide for neutropenia with same dose daratumumab. Coordination of care with Dr. Benavidez to discuss change in therapy. 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 I previously reviewed her outpatient records from [facility], including review of notes, laboratories, and prior bone marrow biopsy 13 years ago. 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 Most recent platelet count is relatively stable at 54,000 but no clinical bleeding. She waspreviously referred to weight reduction clinic and may have slow improvement of steatohepatitis with lifestyle modification. Unless she has active bleeding or planned surgery, we will continue observation during treatment of active myelomato commence next month as noted above. --Agree with recommendation for EGD surveillance for varices (last was 09/2018--negative). This will be deferred during current COVID-19 epidemic. --Prior vitamin B12 and folic acid are normal, for known history of neuropathy. As noted above, I reviewed the negative M spike on serum protein electrophoresiswith immunofixation, but positive for Bence Murray protein on urine protein electrophoresis. Her Quantitative immunoglobulins IgG, IgA, and I gM were all within normal limits, however her serum kappa lambda light chain analysis showeda predominance of lambda light chains. --Previous labs for lupus anticoagulant with DRVVT, hexagonal phase phospholipid, anti-cardiolipin IgG and IgA, and beta 2 glycoprotein IgG and IgA werewithin normal limits. --Evaluated in ED November 2019 for epistaxis which resolved. Platelet count wasstable at 12/28/2019 follow-up. She continues surveillance with liver clinic at [facility] and I will continue to follow her every 6 months, sooner if newbleeding issues arise. --04/02/2020: We reviewed informed consent for Daratumumab/Velcade/Dexamethasone for active myeloma therapy. I requested prior liver biopsy results and notes from liver clinic at [facility]. Platelet count in 40,000 range but patient has had no active bleeding following infusion port placement 03/22/2020. --08/13/2020: Cycle 6 week 2 toxicity check with improved thrombocytopenia 79,000 range with no bleeding. We will continue current dosing with Velcade 0.7mg/m2 sq (now once weekly), dexamethasone 20 mg weekly, and full dose daratumumab with close follow-up of liver function and platelet counts. --09/24/2020, 01/21/2021, 03/28/2021: Platelets stable 60-70,000 with no new toxicities, started Daratumumab maintenance 10/02/2020. --04/24/2021: Platelets now down to 57,000 with rising lambda light chains. Will eval with repeat bone marrow biopsy due to nonsecretory myeloma. --05/24/2021: Bone marrow hypocellular without significant myeloma progression. Normal B12/folate stores, continue Daratumumab maintenance. --08/16/2021: Persistent thrombocytopenia in 50,000 range, consider change in therapy due to risinglambda light chains. Will check echo and review case withDr. Benavidez at to discuss next line of therapy. --08/30/2021: Stable platelets--decision to resume weekly Daratumumab 16mg first 3 cycles and change to Revlimid 5mg daily 1-21 each 28 day cycle--titrate as tolerated --09/20/2021: Platelets have declined to 40-50,000 range without mucosal bleeding. Held Revlimid atplatelets 42,000 during sinus infection, resumed after one week off. Will follow weekly CBCs on Daratumumab/Revlimid. --12/18/2021, 01/22/2022: Platelets still in the 50,000 range without mucosal bleeding. Current dosing of daratumumab every 2 weeks and Revlimid 5 mg daily 2weeks on 2 weeks off--plan to change to pomalidomide 3 mg daily next cycle. -- 02/19/2022: Last week platelets were 48,000 and we held Revlimid. This week platelets 58,000 but continuing to hold Revlimid due to change to daratumumab 16mg/kg IV every 2 weeks with pomalidomide 3 mg daily days 1 through 21 every 28-day cycle -- 03/19/2022: Platelets were down to 41,000 and we held daratumumab as well as Pomalyst for rash asnoted above. Resume Pomalyst at 2 mg days 1 through 21 every 28 days. Continue daratumumab 16 mg/kgevery 2 weeks. -- 04/09/2022: Platelets down to 40,000. Okay to give daratumumab 16 mg/kg IV every 2 weeks but Pomalyst dose will be changed to 2 mg days 1 through 14 every 28 days. Follow-up 1 month. -- 05/07/2022: Platelets 48,000. Continue monthly daratumumab 16mg/kg IV with same Pomalyst dose 2mg daily D1-14 every 28 days. Extend next follow-up with kappa/lambda light chain ratio to 2 months. --07/10/2022: Platelets 53,000 with ANC now 600 (held Pomalyst one week for ANC 300). May have one dose Pomalyst today, then hold for change in therapy. Will have platelet transfusion as needed for change in therapy to Kyprolis/Cytoxan/Deamethasone. (3) Cancer-related pain Improved symptoms after palliative radiation to bilateral hips--one dose 02/07/2020. Will continue tofollow on myeloma chemotherapy. Extensive, but stable bone involvement on F-18 PET/CT 12/2020 and 04/2021. Recent increased leftneck and shoulder pain. Increased oxycodone dosing to three times daily, no unusual right hip pain is noted above--followed by palliative medicine. -Completed right hip radiation with persistent but improved pain--no new pain issues with follow-upvisit with radiation in early March 2022, follow-up as needed. Will continue to follow with palliative medicine. 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 She wasreferred to [facility] to attempt weight reduction through diet and exercise that may prevent further fatty infiltration that may further impairher liver function. [facility] hepatology discussed liver transplant but sheis likely no longer a candidate for this given active myeloma. We chose least hepatotoxic regimen for treatment of her active myeloma with 50% dose reduction of Velcade. Liver function remained stable since start of therapy 04/10/2020. --Requested prior liver biopsy and [facility] liver clinic records. Dose reduction 20% Kyprolis due to KAPADIA with cirrhosis (normal bilirubin and transaminases). (5) Encounter for antineoplastic immunotherapy Tolerating Daratumumab maintenance well without significant toxicities. Bone marrow biopsy did not reveal indication for change in therapy. She may require additional palliative radiation if no clearetiology found by orthopedic surgeryfor her increased right hip/femur pain. --09/04/2021: Repeat loading with weekly Daratumumab 16mg first 3 cycles and changed to Revlimid 5mgdaily 1-21 each 28 day cycle--02/19/2022 reviewed informed consent to change to pomalidomide next cycle. --03/19/2022. Pomalyst was stopped after 1 week of therapy on 03/13/2022. Daratumumab held 03/19/2022 due to platelet count 41,000. We resumed both medications on arrival of dose reduce Pomalyst 2 mg days 1 through 21 every 28- day cycle. -- 04/09/2022: Daratumumab is now monthly maintenance. Last dose Pomalyst 2mg today with ANC 600. Nowchanging chemo to Kyprolis/Cytoxan pending Echo results. (6) History of 2019 novel coronavirus disease (COVID-19) Patient had coronavirus infection encouraged her to complete vaccinations with booster. When she iscompleted all coronavirus vaccination with booster, she may be eligible for antivirals Evasheld (tixagevimab IM and cilgavimab IM) for passive immunity of coronavirus 19 infection. - Chemo Plan Chemo Plan (Dose, Rate, Freq): Palliative radiation to 02/07/2020, deferred active therapy for myeloma for 8 weeks due to current COVID-19 epidemic. Discussed at Malignant Hematology Tumor Board early March to determine optimal regimen given her comorbidities. --04/10/2020: cycle 1, day 1 weekly dexamethasone 20 mg IV (careful to watch bloodsugars with diabetes and known hepatic dysfunction), decreased dose of bortezomib 0.7 mg/m? twice weekly for 2 weeks on1 week off (decreased to once weekly after first cycle due to known liver disease and thrombocytopenia), and daratumumab 8mg/kg D1,D2 IV first week, then 16 mg/kg IV weekly --10/02/2020: Started Daratumumab monthly maintenance 16mg/kg IV (stopped Velcade and Dexamethasone) --Palliative radiation 07/31/2021 right hip --09/04/2021: Start weekly Daratumumab 16mg/kg first 3 cycles and change to Revlimid 5mg daily 1-21 each 28 day cycle--now 5mg daily D1-14 every 28 days--titrate as tolerated. --02/19/2022: Continue daratumumab 16 mg/kg every other week and changed Revlimidto pomalidomide 3 mg daily days 1 through 21 each 28-day cycle. --Pomalyst was stopped after 1 week of therapy on 03/13/2022. Daratumumab held 03/19/2022 due to platelet count 41,000. We will resume both medications on arrival of dose reduce Pomalyst 2 mg days 1 through 21 every 28-day cycle. -- 04/01/2022: Now has thrombocytopenia with platelet count 40,000. Proceeding with daratumumab 16 mg/kg IV every 2 weeks and will hold Pomalyst and change dosing to 2 mg days 1 through 14 every 28-day cycle for presumed medication related myelosuppression. Daratumumab to monthly dosing since early April had nochange in Pomalyst 2 mg days 1 through 14 every 28-day cycle. --07/10/2022: Held Pomalyst 2mg daily with held dosing 2 weeks due to worsening neutropenia. Today discussed change in therapy. Will send for baseline Echo for possible change to Pomalyst (week 1 test dose 20mg/m2 IV, then 56mg/m2 IV weekly--dose reduction for liver dysfunction due to nonalcoholic steatohepatitis) with Cytoxan 300mg/m2 IV weekly, Dexamethasone 20mg weekly. Goal of Treatment: Palliative - Time with Patient Time Spent with Patient (Follow Up Visit): 35 minutes - Moderate complexity to review potential change in therapy from daratumumab/pomalidomide to carfilzomib/cytoxan Coordination of Care & Counseling Time: Greater than 50% of time spent with patient was for coordination of care (as documented) and [id number] counseling of patient and/or family. Dictated By: Fabiola Marinelli MD DD/ [id number] Signed By: <Electronically signed by MD Fabiola Marinelli> 07/10/22 [address] [facility] Work Phone: [phone]) 558-799607-06-2022 Progress note Author Fabiola Marinelli [facility] May 07, 2022 3:43pmNote Date/TimeJuly 2021 9:43[facility] at [address] [address] Hem/Onc Follow Up Note - OP Signed Patient: Mojgan Pérez MR#: [id number] : 1955 Acct:[id number] Age/Sex: 66 / F Type: REG RCR Copies to: MD Yinka Downey MD Katherine M McGraw, KEITH~ Subjective Date/Time of Service: Date of Service: 05/07/2022 Time of Service: 09:42 Chief Complaint: Patient is here today for 1 month follow up visit and go over labs and Pet scan. HPI: 05/07/2022: Improved rash on 2 mg of Pomalyst, now mild pruritus. Platelet count is 48,000 without bleeding issues. Continues weekly prednisone. Daratumumab isnow monthly since early April. Repeat kappa/lambda light chain ratio slightly higher (106 to 109) But the upward trend is starting to flatten out. F-18 Axumin PET/CT shows no new lesions, relatively stable from 1 year ago. For now given her stable symptoms and pronounced cytopenias, we will continue her current dosing daratumumab/Pomalyst/dexamethasone. Next follow-up with me in 2 months. She will return sooner for issues arise. Moderate complexity visit over 35 minutes. 04/09/2022: Mojgan continues every 2-week durvalumab with Pomalyst now 2 mg daily (dose reduced due to diffuse rash). She is now day 14 of the cycle and isnoted to have platelet count of 40,000 (no associated mucosal bleeding, bright red blood per rectum, or hematuria). No recurrent rash on this dose. She continues her weekly prednisone. I recommended changing her schedule of Pomalyst to 2 mg daily for days 1 through 14, off days 15 through 28 cycle and continuing daratumumab. Her most recent immunoglobulins have shown a steady trend upward for lambda light chain and decrease of kappa/lambda light chain ratio, however since she is now stabilizing her dosing of daratumumab/Pomalyst/dexamethasone I recommend continuing her current dosing for1 more cycle with repeat kappa/lambda light chain ratio in another month. In addition I will set her up for F-18 Axumin PET/CT to compare to PET/CT from 1 year ago (her skeletal survey showed no lesions 6 months ago). She denies any current bone pain.She will proceed with daratumumab dose as previously orderedtoday. 03/19/2022: Mojgan is here for follow-up after adverse cutaneous reaction to her first cycle of Pomalyst. She noted that after starting her first dose of Pomalyst 3 mg daily on 03/05/2022 that about 1 week later on 03/13/2022 she had a diffuse rash all over that was pruritic with increased erythema. She did not have nausea, vomiting, constipation, diarrhea, dyspnea, or any other adverse reactions. She did have a decline of platelet count to 41,000 this week which may be due to her Pomalyst. She called the pharmacy and was instructed to discontinue Pomalyst on 03/13/2022. Her rash has mostly resolved with no furtherpruritus but she still has a few macular lesions over the legs. She has been using Benadryl and topical cortisone cream with improvement of the rash. Otherwise her laboratories are stable. She does have an increased kappa/lambda light chain ratio from 03/05/2022 but this was her first day of therapy. I recommended resuming Pomalyst at next dose level 2 mg daily as soon as new medic ation arrives for 3 weeks on 1 week off. If she has recurrent rash she will again stop and we will consider further dose adjustment. Due to her thrombocytopenia we will hold her daratumumab today andconsume with first day of Pomalyst next week. She may follow-up in about 3 to 4 weeks, possibly with virologist covering at that time. Patient expressed understanding. 02/19/2022: Mojgan is here for follow-up--no new symptoms but her platelet countdropped to 48,000 last week and we are again holding her Revlimid. She has not had any bleeding or infection recently, but she has had uptrending lambda light chains and we discussed changing her therapy from lenalidomide to pomalidomide and continuing her daratumumab which is currently every other week. Her only other concern is constipation which is likely related to her pain medications. ANC was 800 today. --Today we reviewed chemotherapy counseling for lenalidomide in combination withdaratumumab/dexamethasone (stopping Revlimid). Common toxicities were reviewed to include allergic reactions, myelosuppression, thrombosis, fatigue, nausea, vomiting, constipation, diarrhea, mouth sores, and risk of secondary malignancies. Other toxicities may include pneumonitis, neurologic, hepatic andrenal toxicities. The patient signed informed consent and will follow-up as directed. Planning a trip to [place] on March 06, therefore we will hold Revlimid until arrival of her pomalidomide, then have oral chemotherapy visit. We are starting pomalidomide at 3 mg daily days 1 through 21 every 28 days due to baseline liver dysfunction. Follow-up cycle 1 week 2. We will recheck her baseline myeloma labs on start day of pomalidomide with daratumumab. 01/22/2022: oMjgan has no new complaints. She was seen by Dr. Benavidez at for evaluation for transplant and CAR-T options but given her profound thrombocytopenia, neither of these options are felt tuyet optimal for her. She has had gradual worsening of her lambda light chains without any change of r enalfunction or hypercalcemia. Her chronic thrombocytopenia has remained in the 40-50,000 range which is lower than her prior baseline. I reviewed her options with Dr. Benavidez and it is difficult to assess best options due to her chronic thrombocytopenia but standard of care at this point would be tocontinue her daratumumab and transition from the lenalidomide to pomalidomide. We will follow closely with weekly CBCs to determine if thrombocytopenia worsens on thisregimen. I will defer changing her regimen for 1 month since she is starting a new cycle of lenalidomide and has had slow progression of her lambda light chains. She will return in 1 month and will discuss pomalidomide and signed inf ormed consent. Patient is in agreement with this plan. 12/18/2021: Mojgan is here for 3-month follow-up. She has not had any significant changes in medical history other than testing positive for coronavirus infection in early November 2021. She has not been immunized for coronavirus. She notes persistent fatigue but no bone pain. No other recent infections or bleeding episodes. She recently changed from weekly to now every 2 weeks daratumumab 16 mg/kg and remains on low-dose lenalidomide 5 mg daily for2 weeks on 1 week off due to prior thrombocytopenia worsening. October 2021 skeletal survey showed no osteolytic lesions suggestive of myeloma. Initially she had improvement of her platelets to 70-100,000 but today platelets are down to 54,000. She also had some improvement of leukopenia but this is again down to 2800 with ANC 1300 today. Urinerandom M spike is not observed, but she has had progressive increase of her lambda light chains from 30 in December 2020 to 60.2 in October 2021. [place] lambda ratio has also started to decline to 0.21 in October 2021. For now I'm continuing her daratumumab with Revlimid at current dosing, but I contacted Dr. Benavidez at [facility] for CAR-T celleligibility. If he has recommendations to change her therapy, I will let her know. Otherwise I will have her follow-up with me in 1 month (she will have repeat myeloma labs 1 week prior to visit). 09/20/2021: After telephone consultation with Dr. Benavidez at , we resumed repeat loading doses of weekly daratumumab 16mg/kg and changed to low dose lenalidomide 5mg daily. She has had 2 courses of antibiotics for sinus infection over the past month and was noted to have neutropenia with ANC 900, platelets 44,000 week 2 of Revlimid, therefore this was held for one week and resumed Thursday after ANC returned to 1000. Platelet counts have persisted at 40-50,000 range without active bleeding. Otherwise tolerating therapy well. Still improved hip pain and ambulation after recent course of palliative radiation therapy. For now we will continue Daratumumab with Revlimid and Dexamethasone as ordered with weekly CBC. Gradually increasing lambda light chains--pending evaluation at for CAR-T celltherapy eligibility (has not yetbeen contacted for appointment). 4 week f/u with me with CBC, CMP, and myeloma labs (follow quant immunoglobulins and [place]/Lambda light chain ratio with skeletal survey in 2 weeks so results available for appointment). 08/30/2021: Mojgan is here for 2-week follow-up for completion of her palliative radiation therapywith significant improvement of pain in her right hip and pelvis. We sent her for echocardiogram performed 08/23/2021 at [facility] [place] as baseline for possible Kyprolis therapy. This returned with ejection fraction 60% which is normal with grade 1 left ventricular diastolic dysfunction and 1+ tricuspid valve regurgitation and trace to 1+ aortic valve regurgitation.Otherwise unremarkable. I discussed her case with Dr. Benavidez of malignant hematology at [facility]. He advised against Kyprolis therapy given her underlying liver dysfunction and recommended repeating loading doses of daratumumab weekly as well as low-dose lenalidomide which we will start at 5 mg daily since she has chronic thrombocytopenia. We will send for CAR-T therapy as a possible therapeutic option. The patient agreed with changing daratumumab to weekly and we will haveher sign consent next week for change to low-dose lenalidomide therapy. Next follow-up with me will be in about 2 weeks for week 2 lenalidomide with daratumumab. 08/16/2021: One month followup, she recently completed palliative radiation therapy to right hip and pelvis. Platelet count still in 50,000 range with increased bruising but no bleeding. Still has some pain in right hip but slowlyimproving after radiation therapy. Slowly worsening lambda light chain --she is scheduled for ECHO next week. We discussed possibly changing therapy from Daratumumab, Velcade, Dexamethasone to Kyprolis, low dose lenalidomide, dexamethasone if adequate cardiac function. I will discuss this with Dr. Benavidez for dosing and determine if CAR-T therapy is another possible option (although we may be limited due to chronic thrombocytopenia and liver disease). Followup 2-3 weeks to review results and possible consent for change in therapy. 07/17/2021: 2-month follow-up on multiple myeloma. She reports that Thursday she developed severe painin the right leg that started proximal to the knee creating it to the hip. She had increased pain with weightbearing on the right and has been using a walker at home secondary to this. She did not feel a pop or shift in ambulation, but has been using her Percocet for pain control at home. In reviewing her laboratories platelet count remains in the 52,000 range and she is otherwisPe tolerating daratumumab well. I recommended sending for right hip, femur, and knee plain film imaging that did not show any fracture. She does have a gradually rising lambda light chain but no other significant changes in her labs. I reviewed her case with Dr. Cheng of orthopedic surgery who also reviewed her prior PET/CT showing uptake in this area. We will obtain a right hip MRI, keep her completely nonweightbearing on the right leg with walker for transfers and she has an urgent orthopedic follow-up following her MRI. I will follow-up with her in 1 month to review management and we will determine if she requires prophylactic kenton for stability of the hip based on herMRI. 05/24/2021: Here to followup 05/03/2021 bone marrow biopsy--noted to have decreased cellularity 25%, flow cytometry with 0.2% plasma cells and a 1.5% monoclonal B- cell population. FISH showed 13q and 1qabnormalities but normal cytogenetics. No myelodysplasia seen. I reassured her that recent thrombocytopenia is more likely related to splenic sequestration from liver disease and not worsening myeloma. For now continue current regimen. Will also recheck B12, folate, and iron profile with next labs--followup in 2 months with myeloma labs, sooner prn. 04/24/2021: 1 month followup to review PET/CT. Over the past 2 days, she notes episodes of sharp left sided neck pain over sternocleidomastoid muscle and mastoid area. No radiculopathy down left upperextremity. No new side effects of Daratumumab. F18 PET/CT shows largely unchanged diffuse uptake through multiple bony sites in axial and articular skeleton. Lambda light chains risingover past 2 month and decline of platelet count to 57,000 without bleeding. MRIof thoracic spine did not show significant thoracic canal stenosis. Due to worsening neck pain with extensive uptake on F18 PET/CT--we will send for cervical MRI. Palliative medicine has increased Percocet to tid. We will repeat bone marrow biopsy due to rising lambda light chain and falling platelet count to determine if progression of myeloma noted. This will be scheduled in the next 1-2 weeks. 03/28/2021: 2 month followup for multiple myeloma. More recently notes neck andleft shoulder pain. Fatigue and constipation stable. Labs show stable anemia and thrombocytopenia. Serum M-spike now asymmetric gamma (no quantifiable spike). Slowly improving IgG to near normal. [place]/lambda light chain ratio normal with mildly increased lambda light chains. MRI of thoracic spine for evaluation of increasing left shoulder pain. For now we will continue current dosing of Daratumumab and recheck F18 PET/CT for response in late April 2021. 01/21/2021: Mojgan is accompanied by her daughter for 2 month followup--now Daratumumab maintenance. She notes persistent fatigue and recently added as needed laxatives to stool softener for management of constipation. Persistent left hand pain--correlates to an area of bone uptake on PET/CT. Overall F18 PET/CT appears stable with no new areas if FDG avidity (still extensive bone FDGuptake). We reviewed prior plain xrays of left hand from November--she agrees toevaluation by orthopedic surgery (determine if biopsy or steroid injections). M-spike and kappa/lambda light chains pending. CBC (platelets 60-70,000); CMP stable. Will followup in 2 months with exam and labs. 11/26/2020: Mojgan is accompanied by her daughter for 2 month followup--now Daratumumab maintenance. Stable leukopenia/low platelet 70,000. Notes 3 days of hematuria and mild dysuria. Sending UA and possible culture. Otherwise no new bone pain. Blood sugars stable. M-spike and kappa/lambda light chain ratiostable. Next f/u 2 months after one year f/u PET/CT to determine response to therapy. 09/24/2020: Mojgan presents (accompanied by her daughter) for cycle 8, week 2 followup [id number] mg/kg IV weekly, Dexamethasone 20mg weekly, and Velcade 0.7 mg/m? now sq once weekly for every 3-week cycle (21 days). She notes neuropathy symptoms are stable. Tolerating therapy well without fatigue. No bleeding and thrombocytopenia stable in 60-70,0000 range. On 10/02 she will be due for maintenance therapy with Daratumumab alone once per month. I will f/u with her in 2 months with myeloma labs, sooner as needed. Velcade and Dexamethasone will be stopped after 8 cycles. 08/13/2020: Mojgan is here for cycle 6, week 2 (day 14) daratumumab 16 mg/kg weekly, Velcade 0.7 mg/m? now sq once weekly for every 3-week cycle (21 days), and dexamethasone 20 mg weekly. No new symptoms--improving thrombocytopenia to 79,000 and improved leukopenia. 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 Still has improvement of M-spike, IgA normal and decreased lambda light chain and K/L ratio. We discussed that week 25 in Oct she will change to monthly daratumumab with weekly Velcade (1mg/m2) and Dexamethasone. Continue to follow every 6-8 weeks until maintenance schedule. 06/18/2020: Mojgan is here for cycle 3 week 3 (day 21) daratumumab 16 mg/kg weekly, Velcade 0.7 mg/m? now sq once weekly for every 5-week cycle (35 days), and dexamethasone 20 mg weekly. Tolerating well with stable leukopenia and thrombocytopenia. Mild increased symptoms of hand and foot neuropathy, but no limitation in activity. Now following with diabetes management clinic with variable glucosecontrol. We reviewed lower IgA (now M-spike IgG kappa after Daratumumab--previously IgA lambda). Lambda light chain has decreased from 516 to 41.3 to now 18.5 with normalization of K/L ratio. Continue followup myeloma labs in 6 weeks, visit in 8 weeks. 05/21/2020: Mojgan is here for cycle 2 (week 7 overall) daratumumab 16 mg/kg weekly, Velcade 0.7 mg/m? now sq once weekly for every 5-week cycle (35 days), and dexamethasone 20 mg weekly. Tolerating well with stable leukopenia and thrombocytopenia. No significant neuropathy. Noted to have improvement in lambda light chains. No further daratumumab infusion reactions. No infections,stable constipation, pain control improved. No other complaints. Continue monthly f/u with myeloma labs. --Diabetes management--added insulin on dexamethasone days. Hyperglycemia improving. 01/18/2020 (phone followup)--The patient's son was available by phone and her daughter was contactedin a separate phone call as patient presented unaccompanied due to COVID-19 precautions in our clinic during the current epidemic. Bone marrow biopsy results were reviewed as follows from procedure pe rformed 01/26/2020: --Bone marrow biopsy was suboptimal for evaluation. --Increased lambda light chain restricted monoclonal plasma cells (1.9% by flow cytometry, approximately 6% and aspirate count, but 50% by immunohistochemical stains [id number]). Sideroblastic iron present, negative for ring sideroblasts. Peripheral blood smear with mild red blood cell anisocytosis and polychromasia, leukopenia with absolute neutropenia (1000) and thrombocytopenia (54,000) consistent with prior baseline. Note: I discussed the results with Dr. Crook 01/26/2020. Preliminary findings were also discussed with Dr. Cummings 01/27/2020. Morphologic findings, immunohistochemical stains, flow cytometry, and ancillary studies may under represent the extent and severity of disease. The results of FISH myeloma panelwith prognostic markers and cytogenetic analysis are pending. --Given the patient's hip pain and presence of lytic lesions, she meets clinicalcriteria for activemyeloma. Given her hip pain and lytic lesions in weightbearing areas she was offered radiation therapy. She had a limited courseof hypofractionated palliative therapy to bilateral proximal femurs [address] Ahn. We discussed that given the COVID-19 epidemic and absence of othersignificant changes other than bony lesions (normal renal function, normal calcium, stable cytopenias), I would defer active therapy for myeloma for 4 to 6 weeks. Since she has significant history ofliver disease I will discuss her case with Dr. Piter Benavidez at [facility] malignant hematology for optimal regimen. The patient is not a transplant candidate given her nonalcoholic steatohepatitis and chronic thrombocytopenia but may be a candidate for either doublet therapy (Revlimid/dexamethasone) or triplet therapy with either Velcade/Revlimid/dexamethasone or daratumumab/Revlimid/dexamethasone. --02/03/2020: Mojgan presented unaccompanied for follow-up of bone marrow aspiration and biopsy performed by Dr. 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 The patient had been noting increased left hip pain over the past several months andplain films of the pelvis and bilateral femurs did show subtle lucencies in the bilateral proximal femurs corresponding to PET/CT findings but no other additional sclerotic lesions identified. No pathologic fractures were seen. --03/05/2020: Mojgan notes improvement of bilateral hip pain since radiation. No other changes in medical history in the past month--no infections, normal renal function, no hypercalcemia. Stable platelet counts without bleeding. Shewas given written literature regarding Dexamethasone, Velcade (thatwould be dose reduced to 0.7mg/m2 twice weekly), weekly Daratumumab and Revlimid, but I will defer decision of which regimen to use until discussion in malignant hematology tumor board. Also referring for infusion port placement prior to initiating therapy. Sign informed consent prior to initiating therapy. --Discussed with Dr. Benavidez who favors Daratumumab combination--will request prior liver biopsy and records from [facility] liver clinic. The patient and her son (by telephone) expressed understanding and will follow- up as directed in 2 weeks for consent and likely start of therapy. --04/02/2020: Mojgan presents after infusion port placement at [facility] by interventional radiology due to platelet count 40,000--she had increased bruising at site post procedure, but this has completely resolved. Her hip painis well controlled since completion of palliative radiation and no newareas of pain. She has previously reviewed information regarding Daratumumab (first dosesplit 8mg/kg IV D1,D2, then if well tolerated 16mg/kg IV weekly), Velcade at about 50% dose (for liver dysfunction) 0.7mg/m2 D1,D4,D8, D11, and [id number] IV weekly--repeat for every 3 week cycles 1st 3 cycles. She will take chemo class and likely start therapy within 2 weeks with toxicity visit in 3 weeks. Today we reviewed chemotherapy counseling for Daratumumab, Velcade, and Dexamethasone. Common toxicities were reviewed to include infusion reaction including rash/dyspnea/wheezing, myelosuppression, fatigue, nausea, vomiting, constipation, diarrhea, mouth sores, and alopecia. Other toxicities may in cludepneumonitis, neurologic, thromboembolism, hyperglycemia, hepatic and renal toxicities. The patient signed informed consent and will follow-up as directed. --04/19/2020: Mojgan is here for cycle 1 week 2 daratumumab 16 mg/kg weekly, Velcade 0.7 mg/m? twice weekly for first 2 weeks of every 3-week cycle, and dexamethasone 20 mg weekly. She did have an infusion reaction with first daratumumab with dyspnea and flushing but this improved after first dose and shehas not had recurrent infusion reactions. We have continued Velcade despite platelet counts in the 40,000 range without bleeding as we know that her baseline platelet counts remain in this range and she has not had any significant change from her baseline. Dexamethasone has caused hyperglycemia with blood sugars up to 400 and we are referring to diabetes management clinic. Otherwise she denies any significant nausea, emesis, fever, chills, night sweats, constipation, diarrhea, rash, mouthsores, or alopecia. She has not had any change of baseline neuropathy. Liver function tests remain stable. She notes that her hip pain is well controlled since prior palliative radiation and she saw radiation oncology earlier this week with no new recommendations. I will send her myeloma labs including serum and urine protein electrophoresis, quantitative immunoglobulins, and serum kappa/lambda light chains in 2 weeks andfollow-up with her in 3 weeks. She may be seen sooner if new issues arise. This is a 66-year-old lady on chronic disability has a history of arthritis, diabetes mellitus, hypertension, COPD, GERD, and fibromyalgia [facility]. She states that she was followed with Dr. Kumari prior to his senior care and was told that she had an elevated protein level as well as thrombocytopenia but never had clinical bleeding. She is 4 para4 without complicationsand was never told that she was thrombocytopenic while . She is had multiple prior surgicalprocedures without any clinical bleeding. She had been recommended for a pain procedure with Dr. Wilson but he declined to do the procedure because her platelet count was less than 100,000. For this reason she received 2 platelet transfusions, with little improvement of her platelet count and her second transfusion resulted in throat tightening due to allergy to platelets . She has never beentreated with steroids and has never been told that she has immune thrombocytopenia. She has mild leukopenia with relative neutropenia, absolute neutrophil count of 400-800 and mild lymphocytosis. Hemoglobin is normal. She has not had any bright red blood per rectum or epistaxis. She has no history ofbleeding within the family however does have a mother and sister diagnosed with colon cancer, a brother diagnosed with lung cancer, and another sister diagnosedwith breast cancer. She had prior pain in the right hand mainly at the first MCP joint with some associated swelling and right foot pain and was evaluated by podiatry. She was told that her blood tests were negative forgout. She had screening with MALLORY, CCP, and rheumatoid factor all of which were negative. She says that she previously saw Dr. Petersen for cirrhosis but did not know of any specific therapy. We reviewed these findings from her liver ultrasound ordered by Dr. Benavidez . Initial consultation with me March 16, 2017. --The patient has been followed by me for some time for diagnosis of smoldering myeloma with a prior bone marrow biopsy May 2017 showing 15% plasma cells but the patient remained asymptomatic without bone pain or other CRAB criteria for therapy. She is also noted to have an ascending aortic aneurysm and has chronicliver disease with cirrhosis secondary to nonalcoholic steatohepatitis. She haschronic thrombocytopenia without bleeding ranging from 50-100,000 this is felt to be due to sequestration from her nonalcoholic steatohepatitis. She was previously on a liver transplant list but was recently notified that she is no longer a candidate for liver transplant. She has had chronic pain from f ibromyalgia but noted increasing bilateral hip and upper thigh pain over the last 6 months. She also is followed for EGD/colonoscopy with last documented procedure 09/21/2018: 1. Normal EGD, 2. Mild sigmoid diverticulosis, 3. Internal hemorrhoids, grade 2, 4. Anal fissure with active bleeding cauterized by bipolar cautery Bone osseous survey in June 2019 showed osteopenia and degenerative changes but no lytic or blastic lesion. Patient had an F-18 PET scan 01/02/2020 which showed multiple areas of involvementof bones with increased SUV activity. She was contacted with these results by phone and I recommended bone marrow aspirate and biopsy for assessment and analysis. Her prior labs were reviewed. Her SPEP does not show anymonoclonal gammopathy. On VAHID there appears to be a trace of monoclonal gammopathy. Free light chain ratio is less than 100. There is no evidence of renal sufficiency. Patient is not anemic. She doeshave some abnormal areas on bone scan. - Summary of Therapies Summary of Therapies: 1. 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 2. She underwent a single dose of palliative radiation therapy to bilateral hips, receiving 800 cGyto right and left hip in 1 fraction in separate vaz (with a single isocenter). The treatments were given with AP/PA vaz [id number] MV photons and MLC blocks. 3. Deferred active therapy for myeloma 2 months given COVID-19 epidemic with increased risk of myelosuppression and viral transmission of contacts. --Follow-up 03/05/2020 I discussed her case with Dr. Piter Benavidez at malignant hematology. --Given her significant hepatic dysfunction, I presented her case at malignant hematology tumor board to discuss optimal therapy. 4. Cycle 1 day 1 04/10/2020: Dose reduced Velcade 0.7 mg/m? twice weekly (day 1,day 4, day 8, day 11)every 3 weeks with dexamethasone 20 mg weekly and daratumumab 16 mg/kg weekly of each 21-day cycle.After first week, Velcade decreased to 0.7mg sq weekly due to thrombocytopenia. --We will need to watch liver function, platelet count, and neuropathy closely on Velcade. 5. Cycle 9 day 1 10/02/2020: Daratumumab 16mg/kg once monthly maintenance therapy until progression. 6. 07/31/2021: Palliative radiation therapy to right supra chondral/soft tissuearea of hip which is PET positive. She received a dose of 3000 cGy in 10 fractions from 07/31/2021 to 08/15/2021 over 15 elapsed days 7. 08/30/2021: Right hip pain improved after radiation. Due to disease progression with persistent cytopenias, changed to repeat loading doses of daratumumab 16 mg/kg weekly for cycles 1 through 3 with Revlimid 5 mg daily for 3 weeks on 1 week off. Held Revlimid second week due to neutropenia with sinus infection, resumed 3 days ago (09/17/2021). Referred for CAR-T therapy evaluation. 8. 12/18/2021: Daratumumab is now 16 mg/kg every 2 weeks with Revlimid 5 mg daily for 2 weeks on 2 weeks off due to neutropenia and thrombocytopenia. Stillpending evaluation for CAR-T therapy. 9. 01/22/2022: Patient is not deemed a candidate for stem cell transplant or CAR- T therapy at this time. Discussed changing from current Revlimid to pomalidomide with continued daratumumab 16 mg/kg every 2 weeks. Plan change in therapy in 1 month. 10. 02/19/2022: Continue daratumumab 16 mg/kg IV every 2 weeks and changed to pomalidomide now 3 mg daily days 1 through 21 of each 28-day cycle (lower dose due to baseline liver dysfunction) -- 03/19/2022: Patient was noted to tolerate Pomalyst only 1 week (03/05- 03/13/2022)due to grade 3 rash. This resolved after stopping medication 1 week later. 1 dose level reduction Pomalyst to 2 mg daily days 1 through 21 of each 28-day cycle. Also holding daratumumab daily for platelet count of 41,000 and will resume at full dose with first dose of Pomalyst. -- 04/09/2022: Platelet 40,000 without bleeding. Will continue now monthly Daratumumab with change ofPomalyst to 2mg D1-14 each 28 day cycle (off 2 weeks due to low platelets). ROS Details: All systems reviewed & no additional complaints except as documented Subjective/ROS - Narrative: Constitutional: No Chills, No Diaphoresis, Stable Fatigue, No Fever, No Malaise, No Night Sweats, No Weakness, No Weight Gain, No Weight Loss Gastrointestinal: No Abdominal Pain, No Black Stool, No Bloating, No Bloody Stool, positive for constipation, No Diarrhea, No Dysphagia, No Hematemesis, No Nausea, No Postprandial Pain, No Rectal Bleeding, No Rectal Pain, No Vomiting, Other (chronic gastroesophageal reflux stable) --No jaundice or ascites but patient has longstanding nonalcoholic steatohepatitis with cirrhosis, previously followed by [facility] gastroenterology. Cardiovascular: No Chest Pain, No Edema, No Palpitations, No Syncope Genitourinary: No Discharge, No Dysuria, No Flank Pain, Frequency (chronic andunchanged), Resolved Hematuria, No Incontinence, No Nocturia, No Urgency, No Urinary Retention Musculoskeletal: + left shoulder and neck pain as per HPI (no thoracic cord compression). Improvement of prior bilateral hip/thigh pain since radiation; positive for intermittent lumbar back pain, NoChest Wall Tenderness, Improvement of prior Joint Pain, Muscle Stiffness, Myalgia (history of fibromyalgia), --unremarkable skeletal survey June 2019. 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 12/2020: F-18 PET/CT stable. 04/2021 F-18 PET/CT stable. Right hip pain mildly improved after palliative radiation. 04/30/2022 repeat Axumin F-18 PET/CT stablefrom 1 year ago. HEENT: No Blurred Vision, No Discharge, No Ear Pain, No Epistaxis, No Rhinorrhea, No Sore Throat--patient was seen in emergency department November 2019 with persistent epistaxis. She was treated withnasal clip and packing andwas advised to continue Afrin. No recurrent bleeding. 2 courses of antibio ticsin Aug-Sep 2021 for recurrent sinusitis Respiratory: No Cough, No Hemoptysis, mild Shortness of Breath (chronic and unchanged due to COPD),No Sputum, No Wheezing--shortness of breath with daratumumab reaction dose 1 04/10/2020 (given a split dose over 2 days). No recurrent reaction since first dose. Neurological: No Dizziness, Stable Numbness/Tingling (reports long-standing bilateral foot numbness--unchanged since starting low-dose Velcade 04/10/2020), NoPre-existing Deficit (no history of stroke or seizure), intermittent headache Hematologic/Lymphatic: No significant bleeding thrombocytopenia from sequestration/myeloma disease,Bruises Easily, No Enlarged Lymph Nodes, Other (reports allergy to prior platelet transfusion) Endocrine: Excessive Sweating (hot flashes, postmenopausal) Flushing, No Intolerance to Cold, Intolerance to Heat Psychiatric: No Depressed Mood, No Insomnia Integumentary: No Jaundice, No Lesions, positive for diffuse rash on Pomalyst 3mg daily as per HPI.1 level dose reduction to 2 mg daily with only mild rash/pruritus. Allergic/Immunology: Previous pruritus with Pomalyst rash improved. PMFSH - History Attestation statement: The following information was validated with the patient. Source: Old Records Reviewed - Medical History Medical History: Medical History (Last Reviewed 05/07/22 @ 15:33 by Fabiola Marinelli MD) Aortic aneurysm COPD (chronic obstructive pulmonary disease) Diabetes Fibromyalgia GERD (gastroesophageal reflux disease) Hypertension Iron deficiency Multiple myeloma Neutropenia Smoldering multiple myeloma (SMM) Smoldering myeloma Temporary low platelet count - Surgical History Surgical History: Surgical History (Last Reviewed 05/07/22 @ 15:33 by Fabiola Marinelli MD) H/O: hysterectomy History of appendectomy History of cholecystectomy - Social History Smoking Status: Former smoker Tobacco Type: cigarettes Substance Use Type: None Social History Comments: Lives with son a [facility] Home Medications & Allergies Allergies erythromycin base [From E-Mycin] Allergy (Verified 05/07/22 09:30) Hives latex Allergy (Verified 05/07/22 09:30) Unknown Reaction moxifloxacin [From Avelox] Allergy (Verified 05/07/22 09:30) Hives Quinolones Allergy (Verified 05/07/22 09:30) Unknown Reaction tetracycline Allergy (Verified 05/07/22 09:30) Unknown Reaction Home Medications carvedilol 12.5 mg tablet 12.5 mg PO BID 11/20/17 [History Confirmed 05/07/22] duloxetine 60 mg capsule,delayed release 60 mg PO DAILY 11/20/17 [History Confirmed 05/07/22] insulin detemir U-100 100 unit/mL (3 mL) subcutaneous pen 26 units SUB-Q QHS 11/20/17 [History Confirmed 05/07/22] oxycodone 10 mg tablet 10 mg PO TID PRN 11/20/17 [History Confirmed 05/07/22] albuterol sulfate 90 mcg/actuation aerosol inhaler 2 puff INHALATION Q6H PRN 11/24/17 [History Confirmed 05/07/22] fluticasone 250 mcg-salmeterol 50 mcg/dose blistr powdr for inhalation (Advair Diskus) 1 inh INHALATION Q12H PRN 11/24/17 [History Confirmed 05/07/22] omeprazole magnesium 20 mg tablet,delayed release (Prilosec OTC) 40 mg PO DAILY 11/24/17 [History Confirmed 05/07/22] cholecalciferol (vitamin D3) 25 mcg (1,000 unit) capsule (Vitamin D3) 1,000 unitPO DAILY 04/13/19 [History Confirmed 05/07/22] metformin 500 mg tablet,extended release 24 hr 500 mg PO BID 03/05/20 [History Confirmed 05/07/22] ondansetron HCl 8 mg tablet (Zofran) 8 mg PO TID PRN #30 tab 04/02/20 [Rx Confirmed 05/07/22] insulin NPH isoph U-100 human 100 unit/mL subcutaneous suspension (Novolin N NPHU-100 Insulin isophane) 20 unit SUBCUT DIRECTED 05/21/20 [History Confirmed 05/07/22] nystatin 100,000 unit/mL oral suspension 100,000 unit BUCCAL DAILY 90 Days #500 ml 06/18/20 [Rx Confirmed 05/07/22] semaglutide (Ozempic) 0.5 mg SUBCUT QWEEK 09/24/20 [History Confirmed 05/07/22] cyanocobalamin (vitamin B-12) 5,000 mcg capsule 5,000 mcg PO QWEEK 10/29/20 [History Confirmed 05/07/22] vitamin B12 0.5 mg-folic acid 1 mg tablet 1 tab PO DAILY 03/28/21 [History Confirmed 05/07/22] diazepam 5 mg tablet (Valium) 5 mg PO DIRECTED 1 Days #2 tab 07/17/21 [Rx Confirmed 05/07/22] gabapentin 300 mg tablet 600 mg PO TID 07/26/21 [History Confirmed 05/07/22] ondansetron 8 mg disintegrating tablet 8 mg PO Q8H PRN #30 tab 10/22/21 [Rx Confirmed 05/07/22] acyclovir 400 mg tablet 400 mg PO BID 90 Days #180 tab 12/24/21 [Rx Confirmed 05/07/22] potassium chloride 10 mEq capsule,extended release 10 meq PO DAILY #30 cap 02/24/22 [Rx Confirmed 05/07/22] dexamethasone 4 mg tablet 20 mg PO ONCE 90 Days #60 tab 03/26/22 [Rx Confirmed 05/07/22] lactulose 20 gram/30 mL oral solution 20 g (30 mL) PO BID PRN #600 ml 04/09/22 [Rx Confirmed 05/07/22] pomalidomide 2 mg capsule (Pomalyst) 2 mg PO DAILY 28 Days #14 cap 04/29/22 [Rx Confirmed 05/07/22] Objective - Height/Weight Height/Weight: Height 5 ft 2.99 in Weight 82.1 kg BSA for Today's Weight 1.92 - Vital Signs Vital Signs: 05/07/22 09:31 Temperature 97.7 F Pulse Rate [Left Brachial] 81 Respiratory Rate 16 Blood Pressure [Right Arm] 130/84 02 Sat by Pulse Oximetry 97 - Pain Generalized Pain Intensity: 3 Bilateral Hip Pain Intensity: 5 Left Hip Pain Intensity: 4 Lower Back Pain Intensity: 7 Left Neck Pain Intensity: 4 Back Pain Intensity: 0 Right Thigh Pain Intensity: 3 Bilateral Leg Pain Intensity: 5 Bilateral Shoulder Pain Intensity: 6 Left index finger Pain Intensity: 4 - Distress Screening Distress Screen Results: RN Distress Screening Start: 02/07/20 10:17 Freq: Status: Complete Protocol: Document 05/01/20 09:33 DB (Rec: 05/01/20 09:33 DB [facility]-[id number]) Distress Screening Distress Score: 0 No worry/distress Distress Screening Total 0 RN Distress Screening Start: 07/26/21 12:37 Freq: Status: Active Protocol: Document 07/26/21 13:20 DB (Rec: 07/26/21 13:20 DB -[id number]) Distress Screening Distress Score: 2 Physical Concerns Pain Distress Screening Total 2 Physical Exam Narrative: Patient is alert and oriented x3. HEAD / FACE: Normocephalic. No tenderness to palpation over scalp, no sinus tenderness to palpation. EYES: Pupils are equal and reactive to light. Conjunctivae and lids are benign in appearance. Ocular movement intact. EARS: Hearing grossly intact. NOSE / MOUTH / THROAT: Nose, mouth, tongue and oropharynx exam without visible lesion. NECK / THYROID: Neck moderate limitation of range of motion--currently no significant tenderness over left sternocleidomastoid and mastoid bone. No cervical adenopathy on exam. Thyroid is symmetrical, without thyromegaly, masses or palpable nodules. LYMPHATIC: No palpable cervical, supraclavicular, axillary, or inguinal adenopathy. RESPIRATORY: Normal inspection. Lungs clear to auscultation and percussion. No wheezing, rales, rhonchi or rubs. Normal effort. Right chest wall infusion portwithout erythema. CARDIOVASCULAR: Regular rate and rhythm. No murmurs, gallops, or rubs. VASCULAR: Carotid, radial, femoral and pedal pulses present bilaterally. No bruits. ABDOMEN: Bowel sounds normoactive. Soft, nontender and non-distended. No hepatosplenomegaly. No masses. GENITOURINARY: No CVA tenderness. No suprapubic fullness or tenderness. No groinadenopathy. No evidence of hernias. INTEGUMENTARY: The skin is unremarkable. Bilateral lower extremity mild macularrash which is resolved from prior diffuse rash as per HPI. No suspicious lesions. No bruising or petechiae noted. BACK / SPINE: Mild tenderness cervical/upper thoracic spine without step off deformity. No lumbar tenderness. MUSCULOSKELETAL: Normal musculature, normal ROM upper and lower extremities, no crepitus. EXTREMITIES: Trace bilateral leg edema--improving. No cyanosis or clubbing. No Destini sign. NEUROLOGICAL: Alert and oriented. Cranial nerves intact. No gross motor or sensory deficits, patient ambulates unassisted. PSYCHIATRIC: No anxiety or evidence of depression. - ECOG Performance Status ECOG Score: 1 Results - Labs Labs: Diagram of Most Recent CBC and CMP 05/07/22 08:20 05/07/22 08:20 Labs - Last 7 Days 05/07/22 08:20: PHA Creatinine Clear 126.14, Sodium 141, Potassium 3.8, Wourxplg663, Carbon Sbjrdkk37.5, BUN 9, Creatinine 0.45, Est GFR ( Amer) > 60, Est GFR (Non-Af Amer) > 60, Glucose 130 H, Calcium 8.9, Total Bilirubin 1.0, AST26, ALT 21, Alkaline Phosphatase 98 H, Total Protein 5.0 L, Albumin 3.1 L, Globulin 1.9, Albumin/Globulin Ratio 1.6 05/07/22 08:20: Corrected WBC 2.9 L, Uncorrected WBC Count 2.9 L, RBC 3.56 L, Hgb 11.6 L, Hct 34.8,MCV 97.8, MCH 32.6, MCHC 33.4, RDW 16.8 H, Plt Count 48 L,MPV 8.4, Neut % (Auto) 42.6, Lymph % (Auto) 39.1, Hodgeman % (Auto) 13.5, Eos % (Auto) 4.5, Baso % (Auto) 0.3, Neut # (Auto) 1.2 L, Lymph # (Auto) 1.1, Hodgeman # (Auto) 0.4, Eos # (Auto) 0.1, Baso # (Auto) 0.0, Nucleated RBC % (auto) 0.2, Platelet Estimate Decreased L, Plt Morphology Comment Normal, RBC Morphology Normal 04/30/22 12:20: Free [place] LC, Quant 11.8, Free Lambda LC, Quant 109.3 H, Free [place]/Lambda Ratio 0.11 L 04/30/22 12:20: PHA Creatinine Clear 126.14, Sodium 140, Potassium 3.8, Bypscssc693, Carbon Zykypcc11.1, BUN 10, Creatinine 0.45, Est GFR ( Amer) > 60, Est GFR (Non-Af Amer) > 60, Glucose 125 H, Calcium 9.1, Total Bilirubin 0.9, AST28, ALT 24, Alkaline Phosphatase 95 H, Total Protein 4.8 L, Albumin 3.2, Globulin 1.6, Albumin/Globulin Ratio 2.0 04/30/22 12:20: Corrected WBC 1.9 L, Uncorrected WBC Count 1.9 L, RBC 3.75, Hgb 12.3, Hct 36.6, MCV97.6, MCH 32.7, MCHC 33.5, RDW 17.2 H, Plt Count 55 L, MPV 9.0, Neut % (Auto) 41.0, Lymph % (Auto) 46.3, Hodgeman % (Auto) 6.1, Eos % (Auto) 6.2, Baso % (Auto) 0.4, Neut # (Auto) 0.8 L, Lymph # (Auto) 0.9 L, Hodgeman # (Auto)0.1, Eos # (Auto) 0.1, Baso # (Auto) 0.0, Nucleated RBC % (auto) 0.1, Platelet Estimate Decreased L, Plt Morphology Comment Normal, RBC Morphology N/A, Anisocytosis Slight - Impressions PET F-[address] FUSION CLINICAL DATA: Multiple myeloma COMPARISON: 04/22/2021 Following the intravenous administration of 9.3 mCi of F-18 imaging was performed from the top of the head to the feet. Spiral unenhanced CT was also performed for anatomic localization. The PET and CT images were fused. This CTexam was performed using one or more following [...] dictated by: Tracey Bah M.D.04/30/2022 4:51 PM Assessment and Plan - TNM Staging Staging: Stage IIIA Multiple Myeloma (Durie Boring criteria) (1) Multiple myeloma Qualifiers: Multiple myeloma remission status: not in remission Qualified Code(s): C90.00 - Multiple myeloma not having achieved remission Mojgan 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 She has high risk cytogenetics and I [facility] Her persistent thrombocytopenia made her ineligible for any clinical trials, and preventedher from receiving local pain procedures given her chronic low back pain. --05/2017 PET/CT images and reports performed for staging to exclude bone involvement with myeloma. 2 indeterminate areas of uptake thought to be degenerative arthritis vs early bone findings of myeloma (right parietooccipitalarea and upper sternum). She has remained asymptomatic [...] showed no lytic lesions and she has stableshoulder, hand, and right SI joint pain (although likely due to fibromyalgia. --Prior osseous survey 07/01/2019 showed osteopenia but no compression fractures or lytic lesions were identified. She had no significant change in myeloma labs(mild increase of urine M-spike, kappa/lambda ratio, and normal serum M- spike and quant immunoglobulins). Urine protein still undetectable, therefore will continue surveillance every 6 months with the same labs--no hypercalcemia, renaldysfunction (or proteinuria), anemia, or new bone symptoms. [...] proteins with urine M spike 43.1 but totalprotein 34.4, with no reported urine creatinine. --We deferred immunosuppressive chemotherapy for about 1 month due to control ofsymptoms after palliative radiation and concern of potential peak of COVID-19 inlate January early March. --She presented for follow-up 03/05/2020 and we discussed potential therapy options (with son available by phone). --I discussed her case with Dr. Piter Benavidez of malignant hematology, possibly presenting the patient in hematology tumor board at [facility]. --Infusion port placed 03/22/2020 at [facility] due to low platelets. No complications. --03/12/2020: Myeloma labs with no serum M-spike, + urine M spike 22.2mg/24h (14%). Immunofixation IgA lambda specificity. IgA normal 227, Serum kappa 20.6, serum lambda 516.7, Free kappa/lambda ratio0.04. Normal renal function and calcium. Lower ANC 600 and platelets 40,000 --04/10/2020: Started cycle 1 day 1 of weekly dexamethasone 20 mg IV (careful to watch blood sugars with diabetes and known hepatic dysfunction), decreased dose of bortezomib 0.7 mg/m? twice weekly for2 weeks on 1 week off (due to known liver disease and thrombocytopenia), and daratumumab 8mg/kg D1,D2 IV first week,then 16 mg/kg IV weekly and we may consider Revlimid as a 4th medication if needed (deferred for worsening neutropenia and thrombocytopenia--I am reluctant to add this therapy initially). - -------- --01/21/2021: One year f/u F18 PET/CT with stable FDG avidity, monoclonal labs (SPEP, Quant Igs, kappa/lambda ratio) all pending. Stable CBC and CMP. Persistent pain left hand 2nd MCP joint--increaseduptake on PET/CT but no lesion on left hand xray from 11/2020. Sending for ortho evaluation. For nowcontinue once monthly Daratumumab. F/u with myeloma labs and exam in 2 months, sooner prn. --05/24/2021: Bone marrow biopsy does not show significant progression although poor prognosis mutation 1q with 13q on FISH. Hypocellular with recent worseningplatelets without bleeding--will recheck B12, folate, and ferritin. [...] sent for plain films of the hip femurand knee showing degenerative changes but no acute [...] progression although she still has slow rise inlambda light chain and platelet count remains in [...] check. She will sign Revlimid consent Thursday. Sheis in agreement with this plan. --09/20/2021: Started daratumumab loading doses weekly with Revlimid on 09/04/2021. Held therapy forANC 900 and platelet 42,000 with sinus infection, now resolved and resumed Revlimid 5mg daily on 09/17. Will continue therapy as prescribed with weekly CBC and hold Revlimid as needed for cytopenias.Evaluation for [facility]T therapy at [facility]. Send myeloma labs and skeletal survey [...] current cycle of Revlimid with change to pomalidomide4 mg daily, follow weekly CBCs after change in therapy and determine optimal dose based on symptomsand cytopenias. Patient is in agreement with this plan. Next follow-up with me in 1 month and we will defer next light chain analysis until 1 month after change in therapy. --02/19/2022: Continued rise in lambda light chains and worsening thrombocytopenia. Today we reviewed informed consent for adding pomalidomide 3 mg daily days 1 through 21 every 28 cycle 2 every otherweek daratumumab. We are dropping Revlimid due to [...] initial cycle was only given 03/05-03/13/2022. Now thatradha has complete resolution of symptoms she may resume pomalidomide at 1 dose level reduction 2 mg daily for days 1 through 21 of each 28-day cycle. We are also holding her daratumumab today due to declining her platelet count 41,000 without bleeding. Repeat kappa/lambda light chain ratio was increased 80 on 4but this was her first dose of pomalidomide. Plan anticipate arrival of pomalidomide within the next 1 to 2 weeks and she may resume daratumumab on day1 of therapy. Her next follow-up will be [...] for following myeloma show normal mild increase herfree lambda from 87 to 106, kappa/lambda ratio decreased 0.10-0.09. I will give her 1 more month ofpomalidomide with daratumumab and dexamethasone. The pomalidomide dose will be changed to 2 mg p.o.days 1 through 14, off days 15 through [...] bony lesions. Her kappa/lambda light chain ratio remainsrelatively stable since early March (0.09-0.11) with free lambda light chainsnow relatively stable (106-109). I advised continuing her current regimen and reevaluating with kappa/lambda light chain ratio in 2 months. Continue current dosing and close observation due to platelet count 48,000. No signs or symptomsof infection. Patient is in agreement with this plan. This is a moderate complexity visit over 35 minutes for review of symptoms, cytopenias, myeloma labs, and adjusting dose of pomalidomide for thrombocytopenia with same dose daratumumab now monthly. 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 I previously reviewed her outpatient records from [facility] [place], including review of notes, laboratories, and prior bone marrow biopsy 13 years ago. 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 Most recent platelet count is relatively stable at 54,000 but no clinical bleeding. She waspreviously referred to weight reduction clinic and may have slow improvement of steatohepatitis with lifestyle modification. Unless she has active bleeding or planned surgery, we will continue observation during treatment of active myelomato commence next month as noted above. --Agree with recommendation for EGD surveillance for varices (last was 09/2018--negative). This will be deferred during current COVID-19 epidemic. --Prior vitamin B12 and folic acid are normal, for known history of neuropathy. As noted above, I reviewed the negative M spike on serum protein electrophoresiswith immunofixation, but positive for Bence Murray protein on urine protein electrophoresis. Her Quantitative immunoglobulins IgG, IgA, and I gM were all within normal limits, however her serum kappa lambda light chain analysis showeda predominance of lambda light chains. --Previous labs for lupus anticoagulant with DRVVT, hexagonal phase phospholipid, anti-cardiolipin IgG and IgA, and beta 2 glycoprotein IgG and IgA were within normal limits. --Evaluated in ED November 2019 for epistaxis which resolved. Platelet count wasstable at 12/28/2019 follow-up. She continues surveillance with liver clinic at [facility] and I will continue to follow her every 6 months, sooner if newbleeding issues arise. --04/02/2020: We reviewed informed consent for Daratumumab/Velcade/Dexamethasone for active myeloma therapy. I requested prior liver biopsy results and notes from liver clinic at [facility]. Platelet count in 40,000 range but patient has had no active bleeding following infusion port placement 03/22/2020. --08/13/2020: Cycle 6 week 2 toxicity check with improved thrombocytopenia 79,000 range with no bleeding. We will continue current dosing with Velcade 0.7mg/m2 sq (now once weekly), dexamethasone 20 mg weekly, and full dose daratumumab with close follow-up of liver function and platelet counts. --09/24/2020, 01/21/2021, 03/28/2021: Platelets stable 60-70,000 with no new toxicities, started Daratumumab maintenance 10/02/2020. --04/24/2021: Platelets now down to 57,000 with rising lambda light chains. Will eval with repeat bone marrow biopsy due to nonsecretory myeloma. --05/24/2021: Bone marrow hypocellular without significant myeloma progression. Normal B12/folate stores, continue Daratumumab maintenance. --08/16/2021: Persistent thrombocytopenia in 50,000 range, consider change in therapy due to risinglambda light chains. Will check echo and review case withErna Benavidez at to discuss next line of therapy. --08/30/2021: Stable platelets--decision to resume weekly Daratumumab 16mg first 3 cycles and change to Revlimid 5mg daily 1-21 each 28 day cycle--titrate as tolerated --09/20/2021: Platelets have declined to 40-50,000 range without mucosal bleeding. Held Revlimid atplatelets 42,000 during sinus infection, resumed after one week off. Will follow weekly CBCs on Daratumumab/Revlimid. --12/18/2021, 01/22/2022: Platelets still in the 50,000 range without mucosal bleeding. Current dosing of daratumumab every 2 weeks and Revlimid 5 mg daily 2weeks on 2 weeks off--plan to change to pomalidomide 3 mg daily next cycle. -- 02/19/2022: Last week platelets were 48,000 and we held Revlimid. This week platelets 58,000 but continuing to hold Revlimid due to change to daratumumab 16mg/kg IV every 2 weeks with pomalidomide 3 mg daily days 1 through 21 every 28-day cycle -- 03/19/2022: Platelets were down to 41,000 and we held daratumumab as well as Pomalyst for rash asnoted above. Resume Pomalyst at 2 mg days 1 through 21 every 28 days. Continue daratumumab 16 mg/kgevery 2 weeks. -- 04/09/2022: Platelets down to 40,000. Okay to give daratumumab 16 mg/kg IV every 2 weeks but Pomalyst dose will be changed to 2 mg days 1 through 14 every 28 days. Follow-up 1 month. -- 05/07/2022: Platelets 48,000. Continue monthly daratumumab 16mg/kg IV with same Pomalyst dose 2mg daily D1-14 every 28 days. Extend next follow-up with kappa/lambda light chain ratio to 2 months. (3) Cancer-related pain Improved symptoms after palliative radiation to bilateral hips--one dose 02/07/2020. Will continue tofollow on myeloma chemotherapy. Extensive, but stable bone involvement on F-18 PET/CT 12/2020 and 04/2021. Recent increased leftneck and shoulder pain. Increased oxycodone dosing to three times daily, no unusual right hip pain is noted above--followed by palliative medicine. -Completed right hip radiation with persistent but improved pain--no new pain issues with follow-upvisit with radiation in early March 2022, follow-up as needed. Will continue to follow with palliative medicine. 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 She wasreferred to [facility] to attempt weight reduction through diet and exercise that may prevent further fatty infiltration that may further impairher liver function. [facility] hepatology discussed liver transplant but sheis likely no longer a candidate for this given active myeloma. We chose least hepatotoxic regimen for treatment of her active myeloma with 50% dose reduction of Velcade. Liver function remained stable since start of therapy 04/10/2020. --Requested prior liver biopsy and [facility] liver clinic records. (5) Encounter for antineoplastic immunotherapy Tolerating Daratumumab maintenance well without significant toxicities. Bone marrow biopsy did not reveal indication for change in therapy. She may require additional palliative radiation if no clearetiology found by orthopedic surgeryfor her increased right hip/femur pain. --09/04/2021: Repeat loading with weekly Daratumumab 16mg first 3 cycles and changed to Revlimid 5mgdaily 1-21 each 28 day cycle--02/19/2022 reviewed informed consent to change to pomalidomide next cycle. --03/19/2022. Pomalyst was stopped after 1 week of therapy on 03/13/2022. Daratumumab held 03/19/2022 due to platelet count 41,000. We resumed both medications on arrival of dose reduce Pomalyst 2 mg days 1 through 21 every 28- day cycle. -- 04/09/2022: Daratumumab is now monthly maintenance (6) History of 2019 novel coronavirus disease (COVID-19) Patient had coronavirus infection encouraged her to complete vaccinations with booster. When she iscompleted all coronavirus vaccination with booster, she may be eligible for antivirals Evasheld (tixagevimab IM and cilgavimab IM) for passive immunity of coronavirus 19 infection. - Chemo Plan Chemo Plan (Dose, Rate, Freq): Palliative radiation to 02/07/2020, deferred active therapy for myeloma for 8 weeks due to current COVID-19 epidemic. Discussed at Malignant Hematology Tumor Board early March to determine optimal regimen given her comorbidities. --04/10/2020: cycle 1, day 1 weekly dexamethasone 20 mg IV (careful to watch bloodsugars with diabetes and known hepatic dysfunction), decreased dose of bortezomib 0.7 mg/m? twice weekly for 2 weeks on1 week off (decreased to once weekly after first cycle due to known liver disease and thrombocytopenia), and daratumumab 8mg/kg D1,D2 IV first week, then 16 mg/kg IV weekly --10/02/2020: Started Daratumumab monthly maintenance 16mg/kg IV (stopped Velcade and Dexamethasone) --Palliative radiation 07/31/2021 right hip --09/04/2021: Start weekly Daratumumab 16mg/kg first 3 cycles and change to Revlimid 5mg daily 1-21 each 28 day cycle--now 5mg daily D1-14 every 28 days--titrate as tolerated. --02/19/2022: Continue daratumumab 16 mg/kg every other week and changed Revlimidto pomalidomide 3 mg daily days 1 through 21 each 28-day cycle. --Pomalyst was stopped after 1 week of therapy on 03/13/2022. Daratumumab held 03/19/2022 due to platelet count 41,000. We will resume both medications on arrival of dose reduce Pomalyst 2 mg days 1 through 21 every 28-day cycle. -- 04/01/2022: Now has thrombocytopenia with platelet count 40,000. Proceeding with daratumumab 16 mg/kg IV every 2 weeks and will hold Pomalyst and change dosing to 2 mg days 1 through 14 every 28-day cycle for presumed medication related myelosuppression. Daratumumab to monthly dosing since early April had nochange in Pomalyst 2 mg days 1 through 14 every 28-day cycle. Goal of Treatment: Palliative - Time with Patient Time Spent with Patient (Follow Up Visit): 35 minutes - Moderate complexity to review toxicities ondaratumumab/pomalidomide (prior dose reductions from rash, change to 2 weeks on 2 weeks off schedule due to thrombocytopenia) Coordination of Care & Counseling Time: Greater than 50% of time spent with patient was for coordination of care (as documented) and [id number] counseling of patient and/or family. Dictated By: Fabiola Marinelli MD DD/ [id number] Signed By: <Electronically signed by MD Fabiola Marinelli> 05/07/22 1543 [facility] Work Phone: [phone]) 206-368906-08-2022 Progress note Author Fabiola Marinelli [facility] April 09, 2022 4:53pmNote Date/TimeJune 2021 11:31[facility] at [address] [address] Hem/Onc Follow Up Note - OP Signed Patient: Mojgan Pérez MR#: [id number] : 1955 Acct:[id number] Age/Sex: 66 / F Type: REG RCR Copies to: MD Yinka Downey MD~ Subjective Date/Time of Service: Date of Service: 04/09/2022 Time of Service: 11:30 Chief Complaint: Patient is here today for a 3 week follow up visit and go over labs. HPI: 04/09/2022: Mojgan continues every 2-week durvalumab with Pomalyst now 2 mg daily (dose reduced due to diffuse rash). She is now day 14 of the cycle and isnoted to have platelet count of 40,000 (no associated mucosal bleeding, bright red blood per rectum, or hematuria). No recurrent rash on this dose. She continues her weekly prednisone. I recommended changing her schedule of Pomalyst to 2 mg daily for days 1 through 14, off days 15 through 28 cycle and continuing daratumumab. Her most recent immunoglobulins have shown a steady trend upward for lambda light chain and decrease of kappa/lambda light chain ratio, however since she is now stabilizing her dosing of daratumumab/Pomalyst/dexamethasone I recommend continuing her current dosing for1 more cycle with repeat kappa/lambda light chain ratio in another month. In addition I will set her up for F-18 Axumin PET/CT to compare to PET/CT from 1 year ago (her skeletal survey showed no lesions 6 months ago). She denies any current bone pain.She will proceed with daratumumab dose as previously orderedtoday. 03/19/2022: Mojgan is here for follow-up after adverse cutaneous reaction to her first cycle of Pomalyst. She noted that after starting her first dose of Pomalyst 3 mg daily on 03/05/2022 that about 1 week later on 03/13/2022 she had a diffuse rash all over that was pruritic with increased erythema. She did not have nausea, vomiting, constipation, diarrhea, dyspnea, or any other adverse reactions. She did have a decline of platelet count to 41,000 this week which may be due to her Pomalyst. She called the pharmacy and was instructed to discontinue Pomalyst on 03/13/2022. Her rash has mostly resolved with no furtherpruritus but she still has a few macular lesions over the legs. She has been using Benadryl and topical cortisone cream with improvement of the rash. Otherwise her laboratories are stable. She does have an increased kappa/lambda light chain ratio from 03/05/2022 but this was her first day of therapy. I recommended resuming Pomalyst at next dose level 2 mg daily as soon as new medic ation arrives for 3 weeks on 1 week off. If she has recurrent rash she will again stop and we will consider further dose adjustment. Due to her thrombocytopenia we will hold her daratumumab today andconsume with first day of Pomalyst next week. She may follow-up in about 3 to 4 weeks, possibly with virologist covering at that time. Patient expressed understanding. 02/19/2022: Mojgan is here for follow-up--no new symptoms but her platelet countdropped to 48,000 last week and we are again holding her Revlimid. She has not had any bleeding or infection recently, but she has had uptrending lambda light chains and we discussed changing her therapy from lenalidomide to pomalidomide and continuing her daratumumab which is currently every other week. Her only other concern is constipation which is likely related to her pain medications. ANC was 800 today. --Today we reviewed chemotherapy counseling for lenalidomide in combination withdaratumumab/dexamethasone (stopping Revlimid). Common toxicities were reviewed to include allergic reactions, myelosuppression, thrombosis, fatigue, nausea, vomiting, constipation, diarrhea, mouth sores, and risk of secondary malignancies. Other toxicities may include pneumonitis, neurologic, hepatic andrenal toxicities. The patient signed informed consent and will follow-up as directed. Planning a trip to [place] on March 06, therefore we will hold Revlimid until arrival of her pomalidomide, then have oral chemotherapy visit. We are starting pomalidomide at 3 mg daily days 1 through 21 every 28 days due to baseline liver dysfunction. Follow-up cycle 1 week 2. We will recheck her baseline myeloma labs on start day of pomalidomide with daratumumab. 01/22/2022: Mojgan has no new complaints. She was seen by Dr. Benavidez at for evaluation for transplant and CAR-T options but given her profound thrombocytopenia, neither of these options are felt tuyet optimal for her. She has had gradual worsening of her lambda light chains without any change of r enalfunction or hypercalcemia. Her chronic thrombocytopenia has remained in the 40-50,000 range which is lower than her prior baseline. I reviewed her options with Dr. Benavidez and it is difficult to assess best options due to her chronic thrombocytopenia but standard of care at this point would be tocontinue her daratumumab and transition from the lenalidomide to pomalidomide. We will follow closely with weekly CBCs to determine if thrombocytopenia worsens on thisregimen. I will defer changing her regimen for 1 month since she is starting a new cycle of lenalidomide and has had slow progression of her lambda light chains. She will return in 1 month and will discuss pomalidomide and signed inf ormedconsent. Patient is in agreement with this plan. 12/18/2021: Mojgan is here for 3-month follow-up. She has not had any significant changes in medical history other than testing positive for coronavirus infection in early November 2021. She has not been immunized for coronavirus. She notes persistent fatigue but no bone pain. No other recent infections or bleeding episodes. She recently changed from weekly to now every 2 weeks daratumumab 16 mg/kg and remains on low-dose lenalidomide 5 mg daily for2 weeks on 1 week off due to prior thrombocytopenia worsening. October 2021 skeletal survey showed no osteolytic lesions suggestive of myeloma. Initially she had improvement of her platelets to 70-100,000 but today platelets are down to 54,000. She also had some improvement of leukopenia but this is again down to 2800 with ANC 1300 today. Urinerandom M spike is not observed, but she has had progressive increase of her lambda light chains from 30 in December 2020 to 60.2 in October 2021. [place] lambda ratio has also started to decline to 0.21 in October 2021. For now I'm continuing her daratumumab with Revlimid at current dosing, but I contacted Dr. Benavidez at [facility] for CAR-T celleligibility. If he has recommendations to change her therapy, I will let her know. Otherwise I will have her follow-up with me in 1 month (she will have repeat myeloma labs 1 week prior to visit). 09/20/2021: After telephone consultation with Dr. Benavidez at , we resumed repeat loading doses of weekly daratumumab 16mg/kg and changed to low dose lenalidomide 5mg daily. She has had 2 courses of antibiotics for sinus infection over the past month and was noted to have neutropenia with ANC 900, platelets 44,000 week 2 of Revlimid, therefore this was held for one week and resumed Thursday after ANC returned to 1000. Platelet counts have persisted at 40-50,000 range without active bleeding. Otherwise tolerating therapy well. Still improved hip pain and ambulation after recent course of palliative radiation therapy. For now we will continue Daratumumab with Revlimid and Dexamethasone as ordered with weekly CBC. Gradually increasing lambda light chains--pending evaluation at for CAR-T celltherapy eligibility (has not yet been contacted for appointment). 4 week f/u with me with CBC, CMP,and myeloma labs (follow quant immunoglobulins and [place]/Lambda light chain ratio with skeletal survey in2 weeks so results available for appointment). 08/30/2021: Mojgan is here for 2-week follow-up for completion of her palliative radiation therapywith significant improvement of pain in her right hip and pelvis. We sent her for echocardiogram performed 08/23/2021 at [facility] [place] as baseline for possible Kyprolis therapy. This returned with ejection fraction 60% which is normal with grade 1 left ventricular diastolic dysfunction and 1+ tricuspid valve regurgitation and trace to 1+ aortic valve regurgitation.Otherwise unremarkable. I discussed her case with Dr. Benavidez of malignant hematology at [facility]. He advised against Kyprolis therapy given her underlying liver dysfunction and recommended repeating loading doses of daratumumab weekly as well as low-dose lenalidomide which we will start at 5 mg daily since she has chronic thrombocytopenia. We will send for CAR-T therapy as a possible therapeutic option. The patient agreed with changing daratumumab to weekly and we will haveher sign consent next week for change to low-dose lenalidomide therapy. Next follow-up with me will be in about 2 weeks for week 2 lenalidomide with daratumumab. 08/16/2021: One month followup, she recently completed palliative radiation therapy to right hip and pelvis. Platelet count still in 50,000 range with increased bruising but no bleeding. Still has some pain in right hip but slowlyimproving after radiation therapy. Slowly worsening lambda light chain --she is scheduled for ECHO next week. We discussed possibly changing therapy from Daratumumab, Velcade, Dexamethasone to Kyprolis, low dose lenalidomide, dexamethasone if adequate cardiac function. I will discuss this with Dr. Benavidez for dosing and determine if CAR-T therapy is another possible option (although we may be limited due to chronic thrombocytopenia and liver disease). Followup 2-3 weeks to review results and possible consent for change in therapy. 07/17/2021: 2-month follow-up on multiple myeloma. She reports that Thursday she developed severe painin the right leg that started proximal to the knee creating it to the hip. She had increased pain with weightbearing on the right and has been using a walker at home secondary to this. She did not feel a pop or shift in ambulation, but has been using her Percocet for pain control at home. In reviewing her laboratories platelet count remains in the 52,000 range and she is otherwisPe tolerating daratumumab well. I recommended sending for right hip, femur, and knee plain film imaging that did not show any fracture. She does have a gradually rising lambda light chain but no other significant changes in her labs. I reviewed her case with Dr. Cheng of orthopedic surgery who also reviewed her prior PET/CT showing uptake in this area. We will obtain a right hip MRI, keep her completely nonweightbearing on the right leg with walker for transfers and she has an urgent orthopedic follow-up following her MRI. I will follow-up with her in 1 month to review management and we will determine if she requires prophylactic kenton for stability of the hip based on herMRI. 05/24/2021: Here to followup 05/03/2021 bone marrow biopsy--noted to have decreased cellularity 25%, flow cytometry with 0.2% plasma cells and a 1.5% monoclonalB- cell population. FISH showed 13q and 1q abnormalities but normal cytogenetics. No myelodysplasia seen. I reassured her that recent thrombocytopenia is more likely related to splenic sequestration from liver disease and not worsening myeloma. For now continue current regimen. Will alsorecheck B12, folate, and iron profile with next labs--followup in 2 months with myeloma labs, sooner prn. 04/24/2021: 1 month followup to review PET/CT. Over the past 2 days, she notes episodes of sharp left sided neck pain over sternocleidomastoid muscle and mastoid area. No radiculopathy down left upperextremity. No new side effects of Daratumumab. F18 PET/CT shows largely unchanged diffuse uptake through multiple bony sites in axial and articular skeleton. Lambda light chains risingover past 2 month and decline of platelet count to 57,000 without bleeding. MRIof thoracic spine did not show significant thoracic canal stenosis. Due to worsening neck pain with extensive uptake on F18 PET/CT--we will send for cervical MRI. Palliative medicine has increased Percocet to tid. We will repeat bone marrow biopsy due to rising lambda light chain and falling platelet count to determine if progression of myeloma noted. This will be scheduled in the next 1-2 weeks. 03/28/2021: 2 month followup for multiple myeloma. More recently notes neck andleft shoulder pain. Fatigue and constipation stable. Labs show stable anemia and thrombocytopenia. Serum M-spike now asymmetric gamma (no quantifiable spike). Slowly improving IgG to near normal. [place]/lambda light chain ratio normal with mildly increased lambda light chains. MRI of thoracic spine for evaluation of increasing left shoulder pain. For now we will continue current dosing of Daratumumab and recheck F18 PET/CT for response in late April 2021. 01/21/2021: Mojgan is accompanied by her daughter for 2 month followup--now Daratumumab maintenance. She notes persistent fatigue and recently added as needed laxatives to stool softener for management of constipation. Persistent left hand pain--correlates to an area of bone uptake on PET/CT. Overall F18 PET/CT appears stable with no new areas if FDG avidity (still extensive bone FDGuptake). We reviewed prior plain xrays of left hand from November--she agrees toevaluation by orthopedic surgery (determine if biopsy or steroid injections). M-spike and kappa/lambda light chains pending. CBC (platelets 60-70,000); CMP stable. Will followup in 2 months with exam and labs. 11/26/2020: Mojgan is accompanied by her daughter for 2 month followup--now Daratumumab maintenance. Stable leukopenia/low platelet 70,000. Notes 3 days of hematuria and mild dysuria. Sending UA and possible culture. Otherwise no new bone pain. Blood sugars stable. M-spike and kappa/lambda light chain ratiostable. Next f/u 2 months after one year f/u PET/CT to determine response to therapy. 09/24/2020: Mojgan presents (accompanied by her daughter) for cycle 8, week 2 followup [id number] mg/kg IV weekly, Dexamethasone 20mg weekly, and Velcade 0.7 mg/m? now sq once weekly for every 3-week cycle (21 days). She notes neuropathy symptoms are stable. Tolerating therapy well without fatigue. No bleeding and thrombocytopenia stable in 60-70,0000 range. On 10/02 she will be due for maintenance therapy with Daratumumab alone once per month. I will f/u with her in 2 months with myeloma labs, sooner as needed. Velcade and Dexamethasone will be stopped after 8 cycles. 08/13/2020: Mojgan is here for cycle 6, week 2 (day 14) daratumumab 16 mg/kg weekly, Velcade 0.7 mg/m? now sq once weekly for every 3-week cycle (21 days), and dexamethasone 20 mg weekly. No new symptoms--improving thrombocytopenia to 79,000 and improved leukopenia. 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 Still has improvement of M-spike, IgA normal and decreased lambda light chain and K/L ratio. We discussed that week 25 in Oct she will change to monthly daratumumab with weekly Velcade (1mg/m2) and Dexamethasone. Continue to follow every 6-8 weeks until maintenance schedule. 06/18/2020: Mojgan is here for cycle 3 week 3 (day 21) daratumumab 16 mg/kg weekly, Velcade 0.7 mg/m? now sq once weekly for every 5-week cycle (35 days), and dexamethasone 20 mg weekly. Tolerating well with stable leukopenia and thrombocytopenia. Mild increased symptoms of hand and foot neuropathy, but no limitation in activity. Now following with diabetes management clinic with variable glucosecontrol. We reviewed lower IgA (now M-spike IgG kappa after Daratumumab--previously IgA lambda). Lambda light chain has decreased from 516 to 41.3 to now 18.5 with normalization of K/L ratio. Continue followup myeloma labs in 6 weeks, visit in 8 weeks. 05/21/2020: Mojgan is here for cycle 2 (week 7 overall) daratumumab 16 mg/kg weekly, Velcade 0.7 mg/m? now sq once weekly for every 5-week cycle (35 days), and dexamethasone 20 mg weekly. Tolerating well with stable leukopenia and thrombocytopenia. No significant neuropathy. Noted to have improvement in lambda light chains. No further daratumumab infusion reactions. No infections,stable constipation, pain control improved. No other complaints. Continue monthly f/u with myeloma labs. --Diabetes management--added insulin on dexamethasone days. Hyperglycemia improving. 01/18/2020 (phone followup)--The patient's son was available by phone and her daughter was contactedin a separate phone call as patient presented unaccompanied due to COVID-19 precautions in our clinic during the current epidemic. Bone marrow biopsy results were reviewed as follows from procedure pe rformed 01/26/2020: --Bone marrow biopsy was suboptimal for evaluation. --Increased lambda light chain restricted monoclonal plasma cells (1.9% by flow cytometry, approximately 6% and aspirate count, but 50% by immunohistochemical stains [id number]). Sideroblastic iron present, negative for ring sideroblasts. Peripheral blood smear with mild red blood cell anisocytosis and polychromasia, leukopenia with absolute neutropenia (1000) and thrombocytopenia (54,000) consistent with prior baseline. Note: I discussed the results with Dr. Crook 01/26/2020. Preliminary findings were also discussed with Dr. Cummings 01/27/2020. Morphologic findings, immunohistochemical stains, flow cytometry, and ancillary studies may under represent the extent and severity of disease. The results of FISH myeloma panelwith prognostic markers and cytogenetic analysis are pending. --Given the patient's hip pain and presence of lytic lesions, she meets clinicalcriteria for activemyeloma. Given her hip pain and lytic lesions in weightbearing areas she was offered radiation therapy. She had a limited courseof hypofractionated palliative therapy to bilateral proximal femurs [address] Ahn. We discussed that given the COVID-19 epidemic and absence of othersignificant changes other than bony lesions (normal renal function, normal calcium, stable cytopenias), I would defer active therapy for myeloma for 4 to 6 weeks. Since she has significant history ofliver disease I will discuss her case with Dr. Piter Benavidez at [facility] malignant hematology for optimal regimen. The patient is not a transplant candidate given her nonalcoholic steatohepatitis and chronic thrombocytopenia but may be a candidate for either doublet therapy (Revlimid/dexamethasone) or triplet therapy with either Velcade/Revlimid/dexamethasone or daratumumab/Revlimid/dexamethasone. --02/03/2020: Mojgan presented unaccompanied for follow-up of bone marrow aspiration and biopsy performed by Dr. 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 The patient had been noting increased left hip pain over the past several months andplain films of the pelvis and bilateral femurs did show subtle lucencies in the bilateral proximal femurs corresponding to PET/CT findings but no other additional sclerotic lesions identified. No pathologic fractures were seen. --03/05/2020: Mojgan notes improvement of bilateral hip pain since radiation. No other changes in medical history in the past month--no infections, normal renal function, no hypercalcemia. Stable platelet counts without bleeding. Shewas given written literature regarding Dexamethasone, Velcade (thatwould be dose reduced to 0.7mg/m2 twice weekly), weekly Daratumumab and Revlimid, but I will defer decision of which regimen to use until discussion in malignant hematology tumor board. Also referring for infusion port placement prior to initiating therapy. Sign informed consent prior to initiating therapy. --Discussed with Dr. Benavidez who favors Daratumumab combination--will request prior liver biopsy and records from [facility] liver clinic. The patient and her son (by telephone) expressed understanding and will follow- up as directed in 2 weeks for consent and likely start of therapy. --04/02/2020: Mojgan presents after infusion port placement at [facility] by interventional radiology due to platelet count 40,000--she had increased bruising at site post procedure, but this has completely resolved. Her hip painis well controlled since completion of palliative radiation and no newareas of pain. She has previously reviewed information regarding Daratumumab (first dosesplit 8mg/kg IV D1,D2, then if well tolerated 16mg/kg IV weekly), Velcade at about 50% dose (for liver dysfunction) 0.7mg/m2 D1,D4,D8, D11, and Dexamethasone 20mg IV weekly--repeat for every 3 week cycles 1st 3 cycles. She will take chemo class and likely start therapy within 2 weeks with toxicity visit in 3 weeks. Today we reviewed chemotherapy counseling for Daratumumab, Velcade, and Dexamethasone. Common toxicities were reviewed to include infusion reaction including rash/dyspnea/wheezing, myelosuppression, fatigue, nausea, vomiting, constipation, diarrhea, mouth sores, and alopecia. Other toxicities may in cludepneumonitis, neurologic, thromboembolism, hyperglycemia, hepatic and renal toxicities. The patient signed informed consent and will follow-up as directed. --04/19/2020: Mojgan is here for cycle 1 week 2 daratumumab 16 mg/kg weekly, Velcade 0.7 mg/m? twice weekly for first 2 weeks of every 3-week cycle, and dexamethasone 20 mg weekly. She did have an infusion reaction with first daratumumab with dyspnea and flushing but this improved after first dose and shehas not had recurrent infusion reactions. We have continued Velcade despite platelet counts in the 40,000 range without bleeding as we know that her baseline platelet counts remain in this range and she has not had any significant change from her baseline. Dexamethasone has caused hyperglycemia with blood sugars up to 400 and we are referring to diabetes management clinic. Otherwise she denies any significant nausea, emesis, fever, chills, night sweats, constipation, diarrhea, rash, mouthsores, or alopecia. She has not hadany change of baseline neuropathy. Liver function tests remain stable. She notes that her hip pain is well controlled since prior palliative radiation and she saw radiation oncology earlier this week with no new recommendations. I will send her myeloma labs including serum and urine protein electrophoresis, quantitative immunoglobulins, and serum kappa/lambda light chains in 2 weeks andfollow-up with her in 3 weeks. She may be seen sooner if new issues arise. ------- This is a 66-year-old lady on chronic disability has a history of arthritis, diabetes mellitus, hypertension, COPD, GERD, and fibromyalgia [facility]. She states that she was followed with Dr. Kumari prior to his senior care and was told that she had an elevated protein level as well as thrombocytopenia but never had clinical bleeding. She is 4 para4 without complicationsand was never told that she was thrombocytopenic while . She is had multiple prior surgicalprocedures without any clinical bleeding. She had been recommended for a pain procedure with Dr. Wilson but he declined to do the procedure because her platelet count was less than 100,000. For this reason she received 2 platelet transfusions, with little improvement of her platelet count and her second transfusion resulted in throat tightening due to allergy to platelets . She has never beentreated with steroids and has never been told that she has immune thrombocytopenia. She has mild leukopenia with relative neutropenia, absolute neutrophil count of 400-800 and mild lymphocytosis. Hemoglobin is normal. She has not had any bright red blood per rectum or epistaxis. She has no history ofbleeding within the family however does have a mother and sister diagnosed with colon cancer, a brother diagnosed with lung cancer, and another sister diagnosedwith breast cancer. She had prior pain in the right hand mainly at the first MCP joint with some associated swelling and right foot pain and was evaluated by podiatry. She was told that her blood tests were negative forgout. She had screening with MALLORY, CCP, and rheumatoid factor all of which were negative. She says that she previously saw Dr. Petersen for cirrhosis but did not know of any specific therapy. We reviewed these findings from her liver ultrasound ordered by Dr. Benavidez Summer 2016. Initial consultation with me March 16, 2017. --The patient has been followed by me for some time for diagnosis of smoldering myeloma with a prior bone marrow biopsy May 2017 showing 15% plasma cells but the patient remained asymptomatic without bone pain or other CRAB criteria for therapy. She is also noted to have an ascending aortic aneurysm and has chronicliver disease with cirrhosis secondary to nonalcoholic steatohepatitis. She haschronic thrombocytopenia without bleeding ranging from 50-100,000 this is felt to be due to sequestration from her nonalcoholic steatohepatitis. She was previously on a liver transplant list but was recently notified that she is no longer a candidate for liver transplant. She has had chronic pain from f ibromyalgia but noted increasing bilateral hip and upper thigh pain over the last 6 months. She also is followed for EGD/colonoscopy with last documented procedure 09/21/2018: 1. Normal EGD, 2. Mild sigmoid diverticulosis, 3. Internal hemorrhoids, grade 2, 4. Anal fissure with active bleeding cauterized by bipolar cautery Bone osseous survey in June 2019 showed osteopenia and degenerative changes but no lytic or blastic lesion. Patient had an F-18 PET scan 01/02/2020 which showed multiple areas of involvementof bones with increased SUV activity. She was contacted with these results by phone and I recommended bone marrow aspirate and biopsy for assessment and analysis. Her prior labs were reviewed. Her SPEP does not show anymonoclonal gammopathy. On VAHID there appears to be a trace of monoclonal gammopathy. Free light chain ratio is less than 100. There is no evidence of renal sufficiency. Patient is not anemic. She doeshave some abnormal areas on bone scan. - Summary of Therapies Summary of Therapies: 1. 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 2. She underwent a single dose of palliative radiation therapy to bilateral hips, receiving 800 cGyto right and left hip in 1 fraction in separate vaz (with a single isocenter). The treatments were given with AP/PA vaz [id number] MV photons and MLC blocks. 3. Deferred active therapy for myeloma 2 months given COVID-19 epidemic with increased risk of myelosuppression and viral transmission of contacts. --Follow-up 03/05/2020 I discussed her case with Dr. Piter Benavidez at malignant hematology. --Given her significant hepatic dysfunction, I presented her case at malignant hematology tumor board to discuss optimal therapy. 4. Cycle 1 day 1 04/10/2020: Dose reduced Velcade 0.7 mg/m? twice weekly (day 1,day 4, day 8, day 11)every 3 weeks with dexamethasone 20 mg weekly and daratumumab 16 mg/kg weekly of each 21-day cycle.After first week, Velcade decreased to 0.7mg sq weekly due to thrombocytopenia. --We will need to watch liver function, platelet count, and neuropathy closely on Velcade. 5. Cycle 9 day 1 10/02/2020: Daratumumab 16mg/kg once monthly maintenance therapy until progression. 6. 07/31/2021: Palliative radiation therapy to right supra chondral/soft tissuearea of hip which is PET positive. She received a dose of 3000 cGy in 10 fractions from 07/31/2021 to 08/15/2021 over 15 elapsed days 7. 08/30/2021: Right hip pain improved after radiation. Due to disease progression with persistent cytopenias, changed to repeat loading doses of daratumumab 16 mg/kg weekly for cycles 1 through 3 with Revlimid 5 mg daily for 3 weeks on 1 week off. Held Revlimid second week due to neutropenia with sinus infection, resumed 3 days ago (09/17/2021). Referred for CAR-T therapy evaluation. 8. 12/18/2021: Daratumumab is now 16 mg/kg every 2 weeks with Revlimid 5 mg daily for 2 weeks on 2 weeks off due to neutropenia and thrombocytopenia. Stillpending evaluation for CAR-T therapy. 9. 01/22/2022: Patient is not deemed a candidate for stem cell transplant or CAR- T therapy at this time. Discussed changing from current Revlimid to pomalidomide with continued daratumumab 16 mg/kg every 2 weeks. Plan change in therapy in 1 month. 10. 02/19/2022: Continue daratumumab 16 mg/kg IV every 2 weeks and changed to pomalidomide now 3 mg daily days 1 through 21 of each 28-day cycle (lower dose due to baseline liver dysfunction) -- 03/19/2022: Patient was noted to tolerate Pomalyst only 1 week (03/05- 03/13/2022)due to grade 3 rash. This resolved after stopping medication 1 week later. 1 dose level reduction Pomalyst to 2 mg daily days 1 through 21 of each 28-day cycle. Also holding daratumumab daily for platelet count of 41,000 and will resume at full dose with first dose of Pomalyst. -- 04/09/2022: Platelet 40,000 without bleeding. Will continue every 2 week Daratumumab with change of Pomalyst to 2mg D1-14 each 28 day cycle (off 2 weeks due to low platelets). ROS Details: All systems reviewed & no additional complaints except as documented Subjective/ROS - Narrative: Constitutional: No Chills, No Diaphoresis, Stable Fatigue, No Fever, No Malaise, No Night Sweats, No Weakness, No Weight Gain, No Weight Loss Gastrointestinal: No Abdominal Pain, No Black Stool, No Bloating, No Bloody Stool, positive for constipation, No Diarrhea, No Dysphagia, No Hematemesis, No Nausea, No Postprandial Pain, No Rectal Bleeding, No Rectal Pain, No Vomiting, Other (chronic gastroesophageal reflux stable) --No jaundice or ascites but patient has longstanding nonalcoholic steatohepatitis with cirrhosis, previously followed by [facility] gastro[facility]ology. Cardiovascular: No Chest Pain, No Edema, No Palpitations, No Syncope Genitourinary: No Discharge, No Dysuria, No Flank Pain, Frequency (chronic andunchanged), Resolved Hematuria, No Incontinence, No Nocturia, No Urgency, No Urinary Retention Musculoskeletal: + left shoulder and neck pain as per HPI (no thoracic cord compression). Improvement of prior bilateral hip/thigh pain since radiation; positive for intermittent lumbar back pain, NoChest Wall Tenderness, Improvement of prior Joint Pain, Muscle Stiffness, Myalgia (history of fibromyalgia), --unremarkable skeletal survey June 2019. 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 12/2020: F-18 PET/CT stable. 04/2021 F-18 PET/CT stable. Right hip pain mildly improved after palliative radiation. Plan repeat F-18 PET/CT in late April/earlyly. HEENT: No Blurred Vision, No Discharge, No Ear Pain, No Epistaxis, No Rhinorrhea, No Sore Throat--patient was seen in emergency department November 2019 with persistent epistaxis. She was treated withnasal clip and packing andwas advised to continue Afrin. No recurrent bleeding. 2 courses of antibio ticsin Aug-Sep 2021 for recurrent sinusitis Respiratory: No Cough, No Hemoptysis, mild Shortness of Breath (chronic and unchanged due to COPD),No Sputum, No Wheezing--shortness of breath with daratumumab reaction dose 1 04/10/2020 (given a split dose over 2 days). No recurrent reaction since first dose. Neurological: No Dizziness, Stable Numbness/Tingling (reports long-standing bilateral foot numbness--unchanged since starting low-dose Velcade 04/10/2020), NoPre-existing Deficit (no history of stroke or seizure), intermittent headache Hematologic/Lymphatic: No significant bleeding thrombocytopenia from sequestration/myeloma disease,Bruises Easily, No Enlarged Lymph Nodes, Other (reports allergy to prior platelet transfusion) Endocrine: Excessive Sweating (hot flashes, postmenopausal) Flushing, No Intolerance to Cold, Intolerance to Heat Psychiatric: No Depressed Mood, No Insomnia Integumentary: No Jaundice, No Lesions, positive for diffuse rash on Pomalyst 3mg daily as per HPI.1 level dose reduction to 2 mg daily with no return of rash or pruritus. Allergic/Immunology: Previous pruritus with Pomalyst rash resolved. PMFSH - History Attestation statement: The following information was validated with the patient. Source: Old Records Reviewed - Medical History Medical History: Medical History (Last Reviewed 04/09/22 @ 14:09 by Fabiola Marinelli MD) Aortic aneurysm COPD (chronic obstructive pulmonary disease) Diabetes Fibromyalgia GERD (gastroesophageal reflux disease) Hypertension Iron deficiency Multiple myeloma Neutropenia Smoldering multiple myeloma (SMM) Smoldering myeloma Temporary low platelet count - Surgical History Surgical History: Surgical History (Last Reviewed 04/09/22 @ 14:09 by Fabiola Marinelli MD) H/O: hysterectomy History of appendectomy History of cholecystectomy - Social History Smoking Status: Former smoker Tobacco Type: cigarettes Substance Use Type: None Social History Comments: Lives with son a grandaughter Home Medications & Allergies Allergies erythromycin base [From E-Mycin] Allergy (Verified 04/09/22 11:21) Hives latex Allergy (Verified 04/09/22 11:21) Unknown Reaction moxifloxacin [From Avelox] Allergy (Verified 04/09/22 11:21) Hives Quinolones Allergy (Verified 04/09/22 11:21) Unknown Reaction tetracycline Allergy (Verified 04/09/22 11:21) Unknown Reaction Home Medications carvedilol 12.5 mg tablet 12.5 mg PO BID 11/20/17 [History Confirmed 04/09/22] duloxetine 60 mg capsule,delayed release 60 mg PO DAILY 11/20/17 [History Confirmed 04/09/22] insulin detemir U-100 100 unit/mL (3 mL) subcutaneous pen 26 units SUB-Q QHS 11/20/17 [History Confirmed 04/09/22] oxycodone 10 mg tablet 10 mg PO TID PRN 11/20/17 [History Confirmed 04/09/22] albuterol sulfate 90 mcg/actuation aerosol inhaler 2 puff INHALATION Q6H PRN 11/24/17 [History Confirmed 04/09/22] fluticasone 250 mcg-salmeterol 50 mcg/dose blistr powdr for inhalation (Advair Diskus) 1 inh INHALATION Q12H PRN 11/24/17 [History Confirmed 04/09/22] omeprazole magnesium 20 mg tablet,delayed release (Prilosec OTC) 40 mg PO DAILY 11/24/17 [History Confirmed 04/09/22] cholecalciferol (vitamin D3) 25 mcg (1,000 unit) capsule (Vitamin D3) 1,000 unitPO DAILY 04/13/19 [History Confirmed 04/09/22] metformin 500 mg tablet,extended release 24 hr 500 mg PO BID 03/05/20 [History Confirmed 04/09/22] ondansetron HCl 8 mg tablet (Zofran) 8 mg PO TID PRN #30 tab 04/02/20 [Rx Confirmed 04/09/22] insulin NPH isoph U-100 human 100 unit/mL subcutaneous suspension (Novolin N NPHU-100 Insulin isophane) 20 unit SUBCUT DIRECTED 05/21/20 [History Confirmed 04/09/22] nystatin 100,000 unit/mL oral suspension 100,000 unit BUCCAL DAILY 90 Days #500 ml 06/18/20 [Rx Confirmed 04/09/22] semaglutide (Ozempic) 0.5 mg SUBCUT QWEEK 09/24/20 [History Confirmed 04/09/22] cyanocobalamin (vitamin B-12) 5,000 mcg capsule 5,000 mcg PO QWEEK 10/29/20 [History Confirmed 04/09/22] vitamin B12 0.5 mg-folic acid 1 mg tablet 1 tab PO DAILY 03/28/21 [History Confirmed 04/09/22] diazepam 5 mg tablet (Valium) 5 mg PO DIRECTED 1 Days #2 tab 07/17/21 [Rx Confirmed 04/09/22] gabapentin 300 mg tablet 600 mg PO TID 07/26/21 [History Confirmed 04/09/22] ondansetron 8 mg disintegrating tablet 8 mg PO Q8H PRN #30 tab 10/22/21 [Rx Confirmed 04/09/22] acyclovir 400 mg tablet 400 mg PO BID 90 Days #180 tab 12/24/21 [Rx Confirmed 04/09/22] potassium chloride 10 mEq capsule,extended release 10 meq PO DAILY #30 cap 02/24/22 [Rx Confirmed 04/09/22] pomalidomide 2 mg capsule (Pomalyst) 2 mg PO DAILY 28 Days #21 cap 03/19/22 [Rx Confirmed 04/09/22] dexamethasone 4 mg tablet 20 mg PO ONCE 90 Days #60 tab 03/26/22 [Rx Confirmed 04/09/22] lactulose 20 gram/30 mL oral solution 20 g (30 mL) PO BID PRN #600 ml 04/09/22 [Rx] Objective - Height/Weight Height/Weight: Height 5 ft 2.99 in Weight 83.007 kg BSA for Today's Weight 1.92 - Vital Signs Vital Signs: 04/09/22 11:21 Temperature 97.8 F Pulse Rate [Left Brachial] 79 Respiratory Rate 16 Blood Pressure [Right Arm] 115/75 02 Sat by Pulse Oximetry 97 - Pain Generalized Pain Intensity: 3 Bilateral Hip Pain Intensity: 5 Left Hip Pain Intensity: 4 Lower Back Pain Intensity: 7 Left Neck Pain Intensity: 4 Back Pain Intensity: 0 Right Thigh Pain Intensity: 3 Bilateral Leg Pain Intensity: 5 Bilateral Shoulder Pain Intensity: 6 Left index finger Pain Intensity: 4 - Distress Screening Distress Screen Results: RN Distress Screening Start: 02/07/20 10:17 Freq: Status: Complete Protocol: Document 05/01/20 09:33 DB (Rec: 05/01/20 09:33 DB [id number]) Distress Screening Distress Score: 0 No worry/distress Distress Screening Total 0 RN Distress Screening Start: 07/26/21 12:37 Freq: Status: Active Protocol: Document 07/26/21 13:20 DB (Rec: 07/26/21 13:20 DB [id number]) Distress Screening Distress Score: 2 Physical Concerns Pain Distress Screening Total 2 Physical Exam Narrative: Patient is alert and oriented x3. HEAD / FACE: Normocephalic. No tenderness to palpation over scalp, no sinus tenderness to palpation. EYES: Pupils are equal and reactive to light. Conjunctivae and lids are benign in appearance. Ocular movement intact. EARS: Hearing grossly intact. NOSE / MOUTH / THROAT: Nose, mouth, tongue and oropharynx exam without visible lesion. NECK / THYROID: Neck moderate limitation of range of motion--currently no significant tenderness over left sternocleidomastoid and mastoid bone. No cervical adenopathy on exam. Thyroid is symmetrical, without thyromegaly, masses orpalpable nodules. LYMPHATIC: No palpable cervical, supraclavicular, axillary, or inguinal adenopathy. RESPIRATORY: Normal inspection. Lungs clear to auscultation and percussion. No wheezing, rales, rhonchi or rubs. Normal effort. Right chest wall infusion portwithout erythema. CARDIOVASCULAR: Regular rate and rhythm. No murmurs, gallops, or rubs. VASCULAR: Carotid, radial, femoral and pedal pulses present bilaterally. No bruits. ABDOMEN: Bowel sounds normoactive. Soft, nontender and non-distended. No hepatosplenomegaly. No masses. GENITOURINARY: No CVA tenderness. No suprapubic fullness or tenderness. No groinadenopathy. No evidence of hernias. INTEGUMENTARY: The skin is unremarkable. Bilateral lower extremity mild macularrash which is resolved from prior diffuse rash as per HPI. No suspicious lesions. No bruising or petechiae noted. BACK / SPINE: Mild tenderness cervical/upper thoracic spine without step off deformity. No lumbar tenderness. MUSCULOSKELETAL: Normal musculature, normal ROM upper and lower extremities, no crepitus. EXTREMITIES: Trace bilateral leg edema--improving. No cyanosis or clubbing. No Destini sign. NEUROLOGICAL: Alert and oriented. Cranial nerves intact. No gross motor or sensory deficits, patient ambulates unassisted. PSYCHIATRIC: No anxiety or evidence of depression. - ECOG Performance Status ECOG Score: 1 Results - Labs Labs: Diagram of Most Recent CBC and CMP 04/08/22 10:55 04/08/22 10:55 Labs - Last 7 Days 04/08/22 10:55: PHA Creatinine Clear 135.14, Sodium 138, Potassium 3.8, [id number], Carbon Evrdcwp18.7, BUN 11, Creatinine 0.42 L, Est GFR ( Amer) > 60, Est GFR (Non-Af Amer) > 60, Glucose 146 H, Calcium 8.7, Total Bilirubin 1.5 H, AST 25, ALT 25, Alkaline Phosphatase 105 H, Total Protein 4.9 L, Albumin 3.0 L, Globulin 1.9, Albumin/Globulin Ratio 1.6 04/08/22 10:55: Corrected WBC 2.9 L, Uncorrected WBC Count 2.9 L, RBC 3.78, Hgb 12.2, Hct 36.6, MCV96.8, MCH 32.2, MCHC 33.3, RDW 16.7 H, Plt Count 40 L, MPV 9.1, Neut % (Auto) 61.8, Lymph % (Auto) 29.3, Hodgeman % (Auto) 6.0, Eos % (Auto) 2.6, Baso % (Auto) 0.3, Neut # (Auto) 1.8, Lymph # (Auto) 0.9 L, Hodgeman # (Auto) 0.2, Eos # (Auto) 0.1, Baso # (Auto) 0.0, Nucleated RBC % (auto) 0.1, Platelet Estimate Decreased L, Plt Morphology Comment Normal, RBC Morphology N/A, Anisocytosis Slight - Impressions F-18 Axumin PET ordered prior to next visit in late April/early May. 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 She has high risk cytogenetics and I [facility] Her persistent thrombocytopenia made her ineligible for any clinical trials, and preventedher from receiving local pain procedures given her chronic low back pain. --05/2017 PET/CT images and reports performed for staging to exclude bone involvement with myeloma. 2 indeterminate areas of uptake thought to be degenerative arthritis vs early bone findings of myeloma (right parietooccipitalarea and upper sternum). She has remained asymptomatic [...] showed no lytic lesions and she has stableshoulder, hand, and right SI joint pain (although likely due to fibromyalgia. --Prior osseous survey 07/01/2019 showed osteopenia but no compression fractures or lytic lesions were identified. She had no significant change in myeloma labs(mild increase of urine M-spike, kappa/lambda ratio, and normal serum M- spike and quant immunoglobulins). Urine protein still undetectable, therefore will continue surveillance every 6 months with the same labs--no hypercalcemia, renaldysfunction (or proteinuria), anemia, or new bone symptoms. [...] proteins with urine M spike 43.1 but totalprotein 34.4, with no reported urine creatinine. --We deferred immunosuppressive chemotherapy for about 1 month due to control ofsymptoms after palliative radiation and concern of potential peak of COVID-19 inlate January early March. --She presented for follow-up 03/05/2020 and we discussed potential therapy options (with son available by phone). --I discussed her case with Dr. Piter Benavidez of malignant hematology, possibly presenting the patient in hematology tumor board at [facility]. --Infusion port placed 03/22/2020 at [facility] due to low platelets. No complications. --03/12/2020: Myeloma labs with no serum M-spike, + urine M spike 22.2mg/24h (14%). Immunofixation IgA lambda specificity. IgA normal 227, Serum kappa 20.6, serum lambda 516.7, Free kappa/lambda ratio0.04. Normal renal function and calcium. Lower ANC 600 and platelets 40,000 --04/10/2020: Started cycle 1 day 1 of weekly dexamethasone 20 mg IV (careful to watch blood sugars with diabetes and known hepatic dysfunction), decreased dose of bortezomib 0.7 mg/m? twice weekly for2 weeks on 1 week off (due to known liver disease and thrombocytopenia), and daratumumab 8mg/kg D1,D2 IV first week,then 16 mg/kg IV weekly and we may consider Revlimid as a 4th medication if needed (deferred for worsening neutropenia and thrombocytopenia--I am reluctant to add this therapy initially). --She has baseline cirrhosis with chronic thrombocytopenia and I am attempting to treat her with the least myelosuppressive regimen after 2 month deferral of therapy due to COVID-19 pandemic noted above. Patient does not have any currentsigns or symptoms of infection. On Acyclovir 400mg bid for VZV prophylaxis. --We requested prior liver biopsy from [facility] for review of the extentof her known liver dysfunction. It is doubtful she will be a high-dose chemotherapy/peripheral blood stem cell transplant candidate given her history of cirrhosis and chronic cytopenias. --04/19/2020 toxicity follow-up: Other than daratumumab reaction with cycle 1 day1 and hyperglycemiasecondary to dexamethasone, she has not had any other new toxicities of therapy thrombocytopenia remains in the 40,000 range without bleeding and we will continue treating with 50% dose Velcade as long as she doesnot have worsening hepatic function, thrombocytopenia, or neuropathy. I am sending [facility] for her hyperglycemia to adjust her insulin regimen (patient has previously discussed this with her primary physician who agrees). --05/21/2020: Tolerating weekly daratumumab, bortezomib, dexamethasone well. Diabetes management improving. Thrombocytopenia stable in 50,000 range without bleeding. --05/03/2020: Myeloma labs with no serum M-spike (not performed), + urine M spike now resolved. Immunofixation IgA lambda specificity. IgA normal 112, Serum kappa 7.8, serum lambda 41.3, Free kappa/lambda ratio 0.19 (improved). Normal renal function and calcium. Mildly improved ANC 900 and platelets 54,000 --06/18/2020: No new symptoms on weekly daratumumab, bortezomib, dexamethasone after dose reductionsof bortezomib for cytopenias and neuropathy. Myeloma labsshow lower IgA 72. M-spike IgG kappa afterDaratumumab--previously IgA lambda. Lambda light chain has decreased from 516 to 41.3 to now 18.5 with normalizationof K/L ratio. --08/13/2020: Improving thrombocytopenia (79,000) and decreasing M-spike, IgA and lambda light chain. Next myeloma f/u with labs in 6 weeks, sooner prn. --09/24/2020: Now completing cycle 8 Daratumumab/Velcade/Dexamethasone with decreased M-spike, low IgA and normalization of lambda light chain. Platelets stable at 60-70,000 without bleeding. With cycle 9 onward 10/02/2020, she will maintain once monthly Daratumumab only (stop Velcade and Dexamethasone). F/u every 2 months. --11/26/2020: Stable M-spike and K/L ratio on Daratumumab maintenance. Restaging F-18 PET/CT orderedfor 12/2020 and will review at next f/u. No signs/symptomsof infection rather than recent hematuria/dysuria--sending UA and Cx if indicated. Leukopenia and thrombocytopenia relatively stable on current therapy. --01/21/2021: One year f/u F18 PET/CT with stable FDG avidity, monoclonal labs (SPEP, Quant Igs, kappa/lambda ratio) all pending. Stable CBC and CMP. Persistent pain left hand 2nd MCP joint--increaseduptake on PET/CT but no lesion on left hand xray from 11/2020. Sending for ortho evaluation. For nowcontinue once monthly Daratumumab. F/u with myeloma labs and exam in 2 months, sooner prn. --03/28/2021: 2 month followup visit--worsening neck/upper back/shoulder pain. Ordered thoracic spine MRI and will contact patient with results. Otherwise stable CBC, CMP and slowly improved monoclonal gammopathy (rising IgG to now normal). Next PET/CT F18 scheduled late April and I will f/u at that time. --04/24/2021: 1 month followup--no spinal stenosis on thoracic MRI and stable PET/CT bony uptake. Now worsening left sternocleidomastoid pain. Sending for cervical MRI and setting up bone marrow biopsy in the next 1-2 weeks due to declining platelets and rising lambda light chains past 2 visits. 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 Hypocellular with recent worseningplatelets without bleeding--will recheck B12, folate, and ferritin. [...] sent for plain films of the hip femurand knee showing degenerative changes but no acute [...] progression although she still has slow rise inlambda light chain and platelet count remains in the 50,000 range. She has increased bruising but no bleeding. For now we will continue daratumumab and follow closely in 6 weeks with monoclonal gammopathy labsand to review recommendations from orthopedic surgery. --08/16/2021: Pain improved after radiation but she has persistent thrombocytopenia and rising lambda light chain. She will have Echo next week and we gave her information regarding Kyprolis therapy.She will return in 2 weeks to discuss possible start of Kyprolis, lenolidamide, dexamethasone therapy. She agrees with this plan. --08/30/2021: Improvement of prior right hip pain [...] check. She will sign Revlimid consent Thursday. Sheis in agreement with this plan. --09/20/2021: Started daratumumab loading doses weekly with Revlimid on 09/04/2021. Held therapy forANC 900 and platelet 42,000 with sinus infection, now resolved and resumed Revlimid 5mg daily on 09/17. Will continue therapy as prescribed with weekly CBC and hold Revlimid as needed for cytopenias.Evaluation for CAR-T therapy at [facility]. Send myeloma labs and skeletal survey in 2 weeks, f/u with me in 4 weeks. She agrees with this plan. --12/18/2020: Mojgan is now on every 2-week dosing of daratumumab with Revlimid 5 mg daily 2 weeks on 2 weeks off. No new symptoms but Dr. Benavidez at [facility] was updated to mild worsening leukopenia and thrombocytopenia (today 54,000) and gradual increase light chain analysis. We are continuing current dosing of daratumumab with Revlimid and awaiting CAR-T cell therapy. He will contactme if there is any patient change therapy. Next follow-up with me with myeloma labs in 1 month. --01/22/2022: No new symptoms but patient is not deemed a candidate for CAR-T therapy at this time. Gradual worsening lambda light chains reviewed with the patient. We will complete this cycle of daratumumab 16 mg/kg IV every 2 weeks and complete current cycle of Revlimid with change to pomalidomide4 mg daily, follow weekly CBCs after change in therapy and determine optimal dose based on symptomsand cytopenias. Patient is in agreement with this plan. Next follow-up with me in 1 month and we will defer next light chain analysis until 1 month after change in therapy. --02/19/2022: Continued rise in lambda light chains and worsening thrombocytopenia. Today we reviewed informed consent for adding pomalidomide 3 mg daily days 1 through 21 every 28 cycle 2 every otherweek daratumumab. We are dropping Revlimid due to [...] initial cycle was only given 03/05-03/13/2022. Now thatradha has complete resolution of symptoms she may resume pomalidomide at 1 dose level reduction 2 mg daily for days 1 through 21 of each 28-day cycle. We are also holding her daratumumab today due to declining her platelet count 41,000 without bleeding. Repeat kappa/lambda light chain ratio was increased 80 on 5 4but this was her first dose of pomalidomide. Plan anticipate arrival of pomalidomide within the next 1 to 2 weeks and she may resume daratumumab on day1 of therapy. Her next follow-up will be [...] for following myeloma show normal mild increase herfree lambda from 87 to 106, kappa/lambda ratio decreased 0.10-0.09. I will give her 1 more month ofpomalidomide with daratumumab and dexamethasone. The pomalidomide dose will be changed to 2 mg p.o.days 1 through 14, off days 15 through 28. Repeat her myeloma labs in 1 month with kappa/lambda light chain ratio. If worsening we may consider change in therapy (discussed with Avery Rivera, oncology pharmacy to potentially choose regimen with least probable thrombocytopenia). This is a moderate complexity visit over 35 minutes for review of symptoms, cytopenias, myeloma labs, and adjusting dose of pomalidomide for thrombocytopenia with same dose daratumumab. 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 I previously reviewed her outpatient records from [facility], including review of notes, laboratories, and prior bone marrow biopsy 13 years ago. 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 Most recent platelet count is relatively stable at 54,000 but no clinical bleeding. She waspreviously referred to weight reduction clinic and may have slow improvement of steatohepatitis with lifestyle modification. Unless she has active bleeding or planned surgery, we will continue observation during treatment of active myelomato commence next month as noted above. --Agree with recommendation for EGD surveillance for varices (last was 09/2018--negative). This will be deferred during current COVID-19 epidemic. --Prior vitamin B12 and folic acid are normal, for known history of neuropathy. As noted above, I reviewed the negative M spike on serum protein electrophoresiswith immunofixation, but positive for Bence Murray protein on urine protein electrophoresis. Her Quantitative immunoglobulins IgG, IgA, and I gM were all within normal limits, however her serum kappa lambda light chain analysis showeda predominance of lambda light chains. --Previous labs for lupus anticoagulant with DRVVT, hexagonal phase phospholipid, anti-cardiolipin IgG and IgA, and beta 2 glycoprotein IgG and IgA werewithin normal limits. --Evaluated in ED November 2019 for epistaxis which resolved. Platelet count wasstable at 12/28/2019 follow-up. She continues surveillance with liver clinic at [facility] and I will continue to follow her every 6 months, sooner if newbleeding issues arise. --04/02/2020: We reviewed informed consent for Daratumumab/Velcade/Dexamethasone for active myeloma therapy. I requested prior liver biopsy results and notes from liver clinic at [facility]. Platelet count in 40,000 range but patient has had no active bleeding following infusion port placement 03/22/2020. --08/13/2020: Cycle 6 week 2 toxicity check with improved thrombocytopenia 79,000 range with no bleeding. We will continue current dosing with Velcade 0.7mg/m2 sq (now once weekly), dexamethasone 20 mg weekly, and full dose daratumumab with close follow-up of liver function and platelet counts. --09/24/2020, 01/21/2021, 03/28/2021: Platelets stable 60-70,000 with no new toxicities, started Daratumumab maintenance 10/02/2020. --04/24/2021: Platelets now down to 57,000 with rising lambda light chains. Will eval with repeat bone marrow biopsy due to nonsecretory myeloma. --05/24/2021: Bone marrow hypocellular without significant myeloma progression. Normal B12/folate stores, continue Daratumumab maintenance. --08/16/2021: Persistent thrombocytopenia in 50,000 range, consider change in therapy due to risinglambda light chains. Will check echo and review case with Reema at to discuss next line of therapy. --08/30/2021: Stable platelets--decision to resume weekly Daratumumab 16mg first 3 cycles and change to Revlimid 5mg daily 1-21 each 28 day cycle--titrate as tolerated --09/20/2021: Platelets have declined to 40-50,000 range without mucosal bleeding. Held Revlimid atplatelets 42,000 during sinus infection, resumed after one week off. Will follow weekly CBCs on Daratumumab/Revlimid. --12/18/2021, 01/22/2022: Platelets still in the 50,000 range without mucosal bleeding. Current dosing of daratumumab every 2 weeks and Revlimid 5 mg daily 2weeks on 2 weeks off--plan to change to pomalidomide 3 mg daily next cycle. -- 02/19/2022: Last week platelets were 48,000 and we held Revlimid. This week platelets 58,000 but continuing to hold Revlimid due to change to daratumumab 16mg/kg IV every 2 weeks with pomalidomide 3 mg daily days 1 through 21 every 28-day cycle -- 03/19/2022: Platelets were down to 41,000 and we held daratumumab as well as Pomalyst for rash asnoted above. Resume Pomalyst at 2 mg days 1 through 21 every 28 days. Continue daratumumab 16 mg/kgevery 2 weeks. -- 04/09/2022: Platelets down to 40,000. Okay to give daratumumab 16 mg/kg IV every 2 weeks but Pomalyst dose will be changed to 2 mg days 1 through 14 every 28 days. Follow-up 1 month. (3) Cancer-related pain Improved symptoms after palliative radiation to bilateral hips--one dose 02/07/2020. Will continue tofollow on myeloma chemotherapy. Extensive, but stable bone involvement on F-18 PET/CT 12/2020 and 04/2021. Recent increased leftneck and shoulder pain. Increased oxycodone dosing to three times daily, no unusual right hip pain is noted above--followed by palliative medicine. -Completed right hip radiation with persistent but improved pain--no new pain issues with follow-upvisit with radiation recently. Will continue to follow with palliative medicine. 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 She wasreferred to [facility] to attempt weight reduction through diet and exercise that may prevent further fatty infiltration that may further impairher liver function. [facility] hepatology discussed liver transplant but sheis likely no longer a candidate for this given active myeloma. We chose least hepatotoxic regimen for treatment of her active myeloma with 50% dose reduction of Velcade. Liver function remained stable since start of therapy 04/10/2020. --Requested prior liver biopsy and [facility] liver clinic records. (5) Encounter for antineoplastic immunotherapy Tolerating Daratumumab maintenance well without significant toxicities. Bone marrow biopsy did not reveal indication for change in therapy. She may require additional palliative radiation if no clearetiology found by orthopedic surgeryfor her increased right hip/femur pain. --09/04/2021: Repeat loading with weekly Daratumumab 16mg first 3 cycles and changed to Revlimid 5mgdaily 1-21 each 28 day cycle--02/19/2022 reviewed informed consent to change to pomalidomide next cycle. --03/19/2022. Pomalyst was stopped after 1 week of therapy on 03/13/2022. Daratumumab held 03/19/2022 due to platelet count 41,000. We will resume both medications on arrival of dose reduce Pomalyst 2 mg days 1 through 21 every 28- day cycle. (6) History of 2019 novel coronavirus disease (COVID-19) Patient had coronavirus infection encouraged her to complete vaccinations with booster. When she iscompleted all coronavirus vaccination with booster, she may be eligible for antivirals Evasheld (tixagevimab IM and cilgavimab IM) for passive immunity of coronavirus 19 infection. - Chemo Plan Chemo Plan (Dose, Rate, Freq): Palliative radiation to 02/07/2020, deferred active therapy for myeloma for 8 weeks due to current COVID-19 epidemic. Discussed at [facility] early March to determine optimal regimen given her comorbidities. --04/10/2020: cycle 1, day 1 weekly dexamethasone 20 mg IV (careful to watch bloodsugars with diabetes and known hepatic dysfunction), decreased dose of bortezomib 0.7 mg/m? twice weekly for 2 weeks on1 week off (decreased to once weekly after first cycle due to known liver disease and thrombocytopenia), and daratumumab 8mg/kg D1,D2 IV first week, then 16 mg/kg IV weekly --10/02/2020: Started Daratumumab monthly maintenance 16mg/kg IV (stopped Velcade and Dexamethasone) --Palliative radiation 07/31/2021 right hip --09/04/2021: Start weekly Daratumumab 16mg/kg first 3 cycles and change to Revlimid 5mg daily 1-21 each 28 day cycle--now 5mg daily D1-14 every 28 days--titrate as tolerated. --02/19/2022: Continue daratumumab 16 mg/kg every other week and changed Revlimidto pomalidomide 3 mg daily days 1 through 21 each 28-day cycle. --Pomalyst was stopped after 1 week of therapy on 03/13/2022. Daratumumab held 03/19/2022 due to platelet count 41,000. We will resume both medications on arrival of dose reduce Pomalyst 2 mg days 1 through 21 every 28-day cycle. -- Most recent cycle started 04/01/2022: Now has thrombocytopenia with platelet count 40,000. Proceeding with daratumumab 16 mg/kg IV every 2 weeks and will hold Pomalyst and change dosing to 2 mg days 1 through 14 every 28-day cycle forpresumed medication related myelosuppression. Follow-up 1 month. Goal of Treatment: Palliative - Time with Patient Time Spent with Patient (Follow Up Visit): 35 minutes - Moderate complexity to review toxicities after change in therapy to daratumumab/pomalidomide (prior dose reductions from rash, change to 2 weeks on 2 weeks off schedule due to thrombocytopenia) Coordination of Care & Counseling Time: Greater than 50% of time spent with patient was for coordination of care (as documented) and [id number] counseling of patient and/or family. Dictated By: Fabiola Marinelli MD DD/ [id number] Signed By: <Electronically signed by MD Fabiola Marinelli> 04/09/22 74[address] [facility] Work Phone: [phone]) 434-886005-18-2022 Progress note Author Fabiola Marinelli [facility] March 19, 2022 1:28pmNote Date/TimeMay 2021 8:59[facility] [place] [address] Hem/Onc Follow Up Note - OP Signed Patient: Mojgan Pérez MR#: [id number] : 1955 Acct:[id number] Age/Sex: 66 / F Type: REG RCR Copies to: MD Yinka Downey MD Katherine M McGraw, [employer]IS[employer]~ Subjective Date/Time of Service: Date of Service: 03/19/2022 Time of Service: 08:58 Chief Complaint: Patient is here today for one month follow up visit for Multiple myeloma and go over labs. HPI: 03/19/2022: Mojgan is here for follow-up after adverse cutaneous reaction to her first cycle of Pomalyst. She noted that after starting her first dose of Pomalyst 3 mg daily on 03/05/2022 that about 1 week later on 03/13/2022 she had a diffuse rash all over that was pruritic with increased erythema. She did not have nausea, vomiting, constipation, diarrhea, dyspnea, or any other adverse reactions. She did have a decline of platelet count to 41,000 this week which may be due to her Pomalyst. She called the pharmacy and was instructed to discontinue Pomalyst on 03/13/2022. Her rash has mostly resolved with no furtherpruritus but she still has a few macular lesions over the legs. She has been using Benadryl and topical cortisone cream with improvement of the rash. Otherwise her laboratories are stable. She does have an increased kappa/lambda light chain ratio from 03/05/2022 but this was her first day of therapy. I recommended resuming Pomalyst at next dose level 2 mg daily as soon as new medic ation arrives for 3 weeks on 1 week off. If she has recurrent rash she will again stop and we will consider further dose adjustment. Due to her thrombocytopenia we will hold her daratumumab today andconsume with first day of Pomalyst next week. She may follow-up in about 3 to 4 weeks, possibly with virologist covering at that time. Patient expressed understanding. 02/19/2022: Mojgan is here for follow-up--no new symptoms but her platelet countdropped to 48,000 last week and we are again holding her Revlimid. She has not had any bleeding or infection recently, but she has had uptrending lambda light chains and we discussed changing her therapy from lenalidomide to pomalidomide and continuing her daratumumab which is currently every other week. Her only other concern is constipation which is likely related to her pain medications. ANC was 800 today. --Today we reviewed chemotherapy counseling for lenalidomide in combination withdaratumumab/dexamethasone (stopping Revlimid). Common toxicities were reviewed to include allergic reactions, myelosuppression, thrombosis, fatigue, nausea, vomiting, constipation, diarrhea, mouth sores, and risk of secondary malignancies. Other toxicities may include pneumonitis, neurologic, hepatic andrenal toxicities. The patient signed informed consent and will follow-up as directed. Planning a trip to [place] on March 06, therefore we will hold Revlimid until arrival of her pomalidomide, then have oral chemotherapy visit. We are starting pomalidomide at 3 mg daily days 1 through 21 every 28 days due to baseline liver dysfunction. Follow-up cycle 1 week 2. We will recheck her baseline myeloma labs on start day of pomalidomide with daratumumab. 01/22/2022: Mojgan has no new complaints. She was seen by Dr. Benavidez at for evaluation for transplant and CAR-T options but given her profound thrombocytopenia, neither of these options are felt tuyet optimal for her. She has had gradual worsening of her lambda light chains without any change of r enalfunction or hypercalcemia. Her chronic thrombocytopenia has remained in the 40-50,000 range which is lower than her prior baseline. I reviewed her options with Dr. Benavidez and it is difficult to assess best options due to her chronic thrombocytopenia but standard of care at this point would be tocontinue her daratumumab and transition from the lenalidomide to pomalidomide. We will follow closely with weekly CBCs to determine if thrombocytopenia worsens on thisregimen. I will defer changing her regimen for 1 month since she is starting a new cycle of lenalidomide and has had slow progression of her lambda light chains. She will return in 1 month and will discuss pomalidomide and signed inf ormed consent. Patient is in agreement with this plan. 12/18/2021: Mojgan is here for 3-month follow-up. She has not had any significant changes in medical history other than testing positive for coronavirus infection in early November 2021. She has not been immunized for coronavirus. She notes persistent fatigue but no bone pain. No other recent infections or bleeding episodes. She recently changed from weekly to now every 2 weeks daratumumab 16 mg/kg and remains on low-dose lenalidomide 5 mg daily for2 weeks on 1 week off due to prior thrombocytopenia worsening. October 2021 skeletal survey showed no osteolytic lesions suggestive of myeloma. Initially she had improvement of her platelets to 70-100,000 but today platelets are down to 54,000. She also had some improvement of leukopenia but this is again down to 2800 with ANC 1300 today. Urinerandom M spike is not observed, but she has had progressive increase of her lambda light chains from 30 in December 2020 to 60.2 in October 2021. [place] lambda ratio has also started to decline to 0.21 in October 2021. For now I'm continuing her daratumumab with Revlimid at current dosing, but I contacted Dr. Benavidez at [facility] for CAR-T celleligibility. If he has recommendations to change her therapy, I will let her know. Otherwise I will have her follow-up with me in 1 month (she will have repeat myeloma labs 1 week prior to visit). 09/20/2021: After telephone consultation with Dr. Benavidez at , we resumed repeat loading doses of weekly daratumumab 16mg/kg and changed to low dose lenalidomide 5mg daily. She has had 2 courses of antibiotics for sinus infection over the past month and was noted to have neutropenia with ANC 900, platelets 44,000 week 2 of Revlimid, therefore this was held for one week and resumed Thursday after ANC returned to 1000. Platelet counts have persisted at 40-50,000 range without active bleeding. Otherwise tolerating therapy well. Still improved hip pain and ambulation after recent course of palliative radiation therapy. For now we will continue Daratumumab with Revlimid and Dexamethasone as ordered with weekly CBC. Gradually increasing lambda light chains--pending evaluation at for CAR-T celltherapy eligibility (has not yetbeen contacted for appointment). 4 week f/u with me with CBC, CMP, and myeloma labs (follow quant immunoglobulins and [place]/Lambda light chain ratio with skeletal survey in 2 weeks so results available for appointment). 08/30/2021: Mojgan is here for 2-week follow-up for completion of her palliative radiation therapywith significant improvement of pain in her right hip and pelvis. We sent her for echocardiogram performed 08/23/2021 at [facility] heart and vascular [place] as baseline for possible Kyprolis therapy. This returned with ejection fraction 60% which is normal with grade 1 left ventricular diastolic dysfunction and 1+ tricuspid valve regurgitation and trace to 1+ aortic valve regurgitation.Otherwise unremarkable. I discussed her case with Dr. Benavidez of malignant hematology at [facility]. He advised against Kyprolis therapy given her underlying liver dysfunction and recommended repeating loading doses of daratumumab weekly as well as low-dose lenalidomide which we will start at 5 mg daily since she has chronic thrombocytopenia. We will send for CAR-T therapy as a possible therapeutic option. The patient agreed with changing daratumumab to weekly and we will haveher sign consent next week for change to low-dose lenalidomide therapy. Next follow-up with me will be in about 2 weeks for week 2 lenalidomide with daratumumab. 08/16/2021: One month followup, she recently completed palliative radiation therapy to right hip and pelvis. Platelet count still in 50,000 range with increased bruising but no bleeding. Still has some pain in right hip but slowlyimproving after radiation therapy. Slowly worsening lambda light chain --she is scheduled for ECHO next week. We discussed possibly changing therapy from Daratumumab, Velcade, Dexamethasone to Kyprolis, low dose lenalidomide, dexamethasone if adequate cardiac function. I will discuss this with Dr. Benavidez for dosing and determine if CAR-T therapy is another possible option (although we may be limited due to chronic thrombocytopenia and liver disease). Followup 2-3 weeks to review results and possible consent for change in therapy. 07/17/2021: 2-month follow-up on multiple myeloma. She reports that Thursday she developed severe painin the right leg that started proximal to the knee creating it to the hip. She had increased pain with weightbearing on the right and has been using a walker at home secondary to this. She did not feel a pop or shift in ambulation, but has been using her Percocet for pain control at home. In reviewing her laboratories platelet count remains in the 52,000 range and she is otherwisPe tolerating daratumumab well. I recommended sending for right hip, femur, and knee plain film imaging that did not show any fracture. She does have a gradually rising lambda light chain but no other significant changes in her labs. I reviewed her case with Dr. Cheng of orthopedic surgery who also reviewed her prior PET/CT showing uptake in this area. We will obtain a right hip MRI, keep her completely nonweightbearing on the right leg with walker for transfers and she has an urgent orthopedic follow-up following her MRI. I will follow-up with her in 1 month to review management and we will determine if she requires prophylactic [place] for stability of the hip based on herMRI. 05/24/2021: Here to followup 05/03/2021 bone marrow biopsy--noted to have decreased cellularity 25%, flow cytometry with 0.2% plasma cells and a 1.5% monoclonal B- cell population. FISH showed 13q and 1qabnormalities but normal cytogenetics. No myelodysplasia seen. I reassured her that recent thrombocytopenia is more likely related to splenic sequestration from liver disease and not worsening myeloma. For now continue current regimen. Will alsorecheck B12, folate, and iron profile with next labs--followup in 2 months with myeloma labs, sooner prn. 04/24/2021: 1 month followup to review PET/CT. Over the past 2 days, she notes episodes of sharp left sided neck pain over sternocleidomastoid muscle and mastoid area. No radiculopathy down left upperextremity. No new side effects of Daratumumab. F18 PET/CT shows largely unchanged diffuse uptake through multiple bony sites in axial and articular skeleton. Lambda light chains risingover past 2 month and decline of platelet count to 57,000 without bleeding. MRIof thoracic spine did not show significant thoracic canal stenosis. Due to worsening neck pain with extensive uptake on F18 PET/CT--we will send for cervical MRI. Palliative medicine has increased Percocet to tid. We will repeat bone marrow biopsy due to rising lambda light chain and falling platelet count to determine if progression of myeloma noted. This will be scheduled in the next 1-2 weeks. 03/28/2021: 2 month followup for multiple myeloma. More recently notes neck andleft shoulder pain. Fatigue and constipation stable. Labs show stable anemia and thrombocytopenia. Serum M-spike now asymmetric gamma (no quantifiable spike). Slowly improving IgG to near normal. [place]/lambda light chain ratio normal with mildly increased lambda light chains. MRI of thoracic spine for evaluation of increasing left shoulder pain. For now we will continue current dosing of Daratumumab and recheck F18 PET/CT for response in late April 2021. 01/21/2021: Mojgan is accompanied by her daughter for 2 month followup--now Daratumumab maintenance. She notes persistent fatigue and recently added as needed laxatives to stool softener for management of constipation. Persistent left hand pain--correlates to an area of bone uptake on PET/CT. Overall F18 PET/CT appears stable with no new areas if FDG avidity (still extensive bone FDGuptake). We reviewed prior plain xrays of left hand from November--she agrees toevaluation by orthopedic surgery (determine if biopsy or steroid injections). M-spike and kappa/lambda light chains pending. CBC (platelets 60-70,000); CMP stable. Will followup in 2 months with exam and labs. 11/26/2020: Mojgan is accompanied by her daughter for 2 month followup--now Daratumumab maintenance. Stable leukopenia/low platelet 70,000. Notes 3 days of hematuria and mild dysuria. Sending UA and possible culture. Otherwise no new bone pain. Blood sugars stable. M-spike and kappa/lambda light chain ratiostable. Next f/u 2 months after one year f/u PET/CT to determine response to therapy. 09/24/2020: Mojgan presents (accompanied by her daughter) for cycle 8, week 2 followup [id number] mg/kg IV weekly, Dexamethasone 20mg weekly, and Velcade 0.7 mg/m? now sq once weekly for every 3-week cycle (21 days). She notes neuropathy symptoms are stable. Tolerating therapy well without fatigue. No bleeding and thrombocytopenia stable in 60-70,0000 range. On 10/02 she will be due for maintenance therapy with Daratumumab alone once per month. I will f/u with her in 2 months with myeloma labs, sooner as needed. Velcade and Dexamethasone will be stopped after 8 cycles. 08/13/2020: Mojgan is here for cycle 6, week 2 (day 14) daratumumab 16 mg/kg weekly, Velcade 0.7 mg/m? now sq once weekly for every 3-week cycle (21 days), and dexamethasone 20 mg weekly. No new symptoms--improving thrombocytopenia to 79,000 and improved leukopenia. 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 Still has improvement of M-spike, IgA normal and decreased lambda light chain and K/L ratio. We discussed that week 25 in Oct she will change to monthly daratumumab with weekly Velcade (1mg/m2) and Dexamethasone. Continue to follow every 6-8 weeks until maintenance schedule. 06/18/2020: Mojgan is here for cycle 3 week 3 (day 21) daratumumab 16 mg/kg weekly, Velcade 0.7 mg/m? now sq once weekly for every 5-week cycle (35 days), and dexamethasone 20 mg weekly. Tolerating well with stable leukopenia and thrombocytopenia. Mild increased symptoms of hand and foot neuropathy, but no limitation in activity. Now following with diabetes management clinic with variable glucosecontrol. We reviewed lower IgA (now M-spike IgG kappa after Daratumumab--previously IgA lambda). Lambda light chain has decreased from 516 to 41.3 to now 18.5 with normalization of K/L ratio. Continue followup myeloma labs in 6 weeks, visit in 8 weeks. 05/21/2020: Mojgan is here for cycle 2 (week 7 overall) daratumumab 16 mg/kg weekly, Velcade 0.7 mg/m? now sq once weekly for every 5-week cycle (35 days), and dexamethasone 20 mg weekly. Tolerating well with stable leukopenia and thrombocytopenia. No significant neuropathy. Noted to have improvement in lambda light chains. No further daratumumab infusion reactions. No infections,stable constipation, pain control improved. No other complaints. Continue monthly f/u with myeloma labs. --Diabetes management--added insulin on dexamethasone days. Hyperglycemia improving. 01/18/2020 (phone followup)--The patient's son was available by phone and her daughter was contactedin a separate phone call as patient presented unaccompanied due to COVID-19 precautions in our clinic during the current epidemic. Bone marrow biopsy results were reviewed as follows from procedure pe rformed 01/26/2020: --Bone marrow biopsy was suboptimal for evaluation. --Increased lambda light chain restricted monoclonal plasma cells (1.9% by flow cytometry, approximately 6% and aspirate count, but 50% by immunohistochemical stains [id number]). Sideroblastic iron present, negative for ring sideroblasts. Peripheral blood smear with mild red blood cell anisocytosis and polychromasia, leukopenia with absolute neutropenia (1000) and thrombocytopenia (54,000) consistent with prior baseline. Note: I discussed the results with Dr. Crook 01/26/2020. Preliminary findings were also discussed with Dr. Cummings 01/27/2020. Morphologic findings, immunohistochemical stains, flow cytometry, and ancillary studies may under represent the extent and severity of disease. The results of FISH myeloma panelwith prognostic markers and cytogenetic analysis are pending. --Given the patient's hip pain and presence of lytic lesions, she meets clinicalcriteria for activemyeloma. Given her hip pain and lytic lesions in weightbearing areas she was offered radiation therapy. She had a limited course of hypofractionated palliative therapy to bilateral proximal femurs 02/07/[address] Ahn. We discussed that given the COVID-19 epidemic and absence of other significant changes other than bony lesions (normal renal function, normal calcium, stable cytopenias), I would defer active therapy for myeloma for 4 to 6 weeks. Since she has significant history of liver disease I will discuss her case with Dr. Piter Benavidez at [facility] malignant hematology for optimal regimen. The patient is not a transplant candidate given hernonalcoholic steatohepatitis and chronic thrombocytopenia but may be a candidate for either doublettherapy (Revlimid/dexamethasone) or triplet therapy with either Velcade/Revlimid/dexamethasone or daratumumab/Revlimid/dexamethasone. --02/03/2020: Mojgan presented unaccompanied for follow-up of bone marrow aspiration and biopsy performed by Dr. 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 The patient had been noting increased left hip pain over the past several months andplain films of the pelvis and bilateral femurs did show subtle lucencies in the bilateral proximal femurs corresponding to PET/CT findings but no other additional sclerotic lesions identified. No pathologic fractures were seen. --03/05/2020: Mojgan notes improvement of bilateral hip pain since radiation. No other changes in medical history in the past month--no infections, normal renal function, no hypercalcemia. Stable platelet counts without bleeding. Shewas given written literature regarding Dexamethasone, Velcade (thatwould be dose reduced to 0.7mg/m2 twice weekly), weekly Daratumumab and Revlimid, but I will defer decision of which regimen to use until discussion in malignant hematology tumor board. Also referring for infusion port placement prior to initiating therapy. Sign informed consent prior to initiating therapy. --Discussed with Dr. Benavidez who favors Daratumumab combination--will request prior liver biopsy and records from [facility] liver clinic. The patient and her son (by telephone) expressed understanding and will follow- up as directed in 2 weeks for consent and likely start of therapy. --04/02/2020: Mojgan presents after infusion port placement at [facility] by interventional radiology due to platelet count 40,000--she had increased bruising at site post procedure, but this has completely resolved. Her hip painis well controlled since completion of palliative radiation and no newareas of pain. She has previously reviewed information regarding Daratumumab (first dosesplit 8mg/kg IV D1,D2, then if well tolerated 16mg/kg IV weekly), Velcade at about 50% dose (for liver dysfunction) 0.7mg/m2 D1,D4,D8, D11, and [id number] IV weekly--repeat for every 3 week cycles 1st 3 cycles. She will take chemo class and likely start therapy within 2 weeks with toxicity visit in 3 weeks. Today we reviewed chemotherapy counseling for Daratumumab, Velcade, and Dexamethasone. Common toxicities were reviewed to include infusion reaction including rash/dyspnea/wheezing, myelosuppression, fatigue, nausea, vomiting, constipation, diarrhea, mouth sores, and alopecia. Other toxicities may in cludepneumonitis, neurologic, thromboembolism, hyperglycemia, hepatic and renal toxicities. The patient signed informed consent and will follow-up as directed. --04/19/2020: Mojgan is here for cycle 1 week 2 daratumumab 16 mg/kg weekly, Velcade 0.7 mg/m? twice weekly for first 2 weeks of every 3-week cycle, and dexamethasone 20 mg weekly. She did have an infusion reaction with first daratumumab with dyspnea and flushing but this improved after first dose and she has not had recurrent infusion reactions. We have continued Velcade despite platelet counts in the 40,000 range without bleeding as we know that her baseline platelet counts remain in this range and she has not had any significant change from her baseline. Dexamethasone has caused hyperglycemia with blood sugars up to 400 and we are referring to diabetes management clinic. Otherwise she denies any significant nausea, emesis, fever, chills, night sweats, constipation, diarrhea, rash, mouth sores, or alopecia. She has not hadany change of baseline neuropathy. Liver function tests remain stable. She notes that her hip pain is well controlled since prior palliative radiation and she saw radiation oncology earlier this week with no new recommendations. I will send her myeloma labs including serum and urine protein electrophoresis, quantitative immunoglobulins, and serum kappa/lambda light chains in 2 weeks andfollow-up with her in 3 weeks. She may be seen sooner if new issues arise. This is a 66-year-old lady on chronic disability has a history of arthritis, diabetes mellitus, hypertension, COPD, GERD, and fibromyalgia who was previouslyfollow[facility] for chronic mild to moderate thrombocytopenia. She states that she was followed with Dr. Kumari prior to his senior care and was told that she had an elevated protein level as well as thrombocytopenia but never had clinical bleeding. She is 4 para4 without complicationsand was never told that she was thrombocytopenic while . She is had multiple prior surgicalprocedures without any clinical bleeding. She had been recommended for a pain procedure with Dr. Wilson but he declined to do the procedure because her platelet count was less than 100,000. For this reason she received 2 platelet transfusions, with little improvement of her platelet count and her second transfusion resulted in throat tightening due to allergy to platelets . She has never beentreated with steroids and has never been told that she has immune thrombocytopenia. She has mild leukopenia with relative neutropenia, absolute neutrophil count of 400-800 and mild lymphocytosis. Hemoglobin is normal. She has not had any bright red blood per rectum or epistaxis. She has no history ofbleeding within the family however does have a mother and sister diagnosed with colon cancer, a brother diagnosed with lung cancer, and another sister diagnosedwith breast cancer. She had prior pain in the right hand mainly at the first MCP joint with some associated swelling and right foot pain and was evaluated by podiatry. She was told that her blood tests were negative forgout. She had screening with MALLORY, CCP, and rheumatoid factor all of which were negative. She says that she previously saw Dr. Petersen for cirrhosis but did not know of any specific therapy. We reviewed these findings from her liver ultrasound ordered by Dr. Benavidez Summer 2016. Initial consultation with me March 16, 2017. --The patient has been followed by me for some time for diagnosis of smoldering myeloma with a prior bone marrow biopsy May 2017 showing 15% plasma cells but the patient remained asymptomatic without bone pain or other CRAB criteria for therapy. She is also noted to have an ascending aortic aneurysm and has chronicliver disease with cirrhosis secondary to nonalcoholic steatohepatitis. She haschronic thrombocytopenia without bleeding ranging from 50-100,000 this is felt to be due to sequestration from her nonalcoholic steatohepatitis. She was previously on a liver transplant list but was recently notified that she is no longer a candidate for liver transplant. She has had chronic pain from f ibromyalgia but noted increasing bilateral hip and upper thigh pain over the last 6 months. She also is followed for EGD/colonoscopy with last documented procedure 09/21/2018: 1. Normal EGD, 2. Mild sigmoid diverticulosis, 3. Internal hemorrhoids, grade 2, 4. Anal fissure with active bleeding cauterized by bipolar cautery Bone osseous survey in June 2019 showed osteopenia and degenerative changes but no lytic or blastic lesion. Patient had an F-18 PET scan 01/02/2020 which showed multiple areas of involvementof bones with increased SUV activity. She was contacted with these results by phone and I recommended bone marrow aspirate and biopsy for assessment and analysis. Her prior labs were reviewed. Her SPEP does not show anymonoclonal gammopathy. On VAHID there appears to be a trace of monoclonal gammopathy. Free light chain ratio is less than 100. There is no evidence of renal sufficiency. Patient is not anemic. She doeshave some abnormal areas on bone scan. - Summary of Therapies Summary of Therapies: 1. 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 2. She underwent a single dose of palliative radiation therapy to bilateral hips, receiving 800 cGyto right and left hip in 1 fraction in separate vaz (with a single isocenter). The treatments were given with AP/PA vaz [id number] MV photons and MLC blocks. 3. Deferred active therapy for myeloma 2 months given COVID-19 epidemic with increased risk of myelosuppression and viral transmission of contacts. --Follow-up 03/05/2020 I discussed her case with Dr. Piter Benavidez at malignant hematology. --Given her significant hepatic dysfunction, I presented her case at malignant hematology tumor board to discuss optimal therapy. 4. Cycle 1 day 1 04/10/2020: Dose reduced Velcade 0.7 mg/m? twice weekly (day 1,day 4, day 8, day 11)every 3 weeks with dexamethasone 20 mg weekly and daratumumab 16 mg/kg weekly of each 21-day cycle.After first week, Velcade decreased to 0.7mg sq weekly due to thrombocytopenia. --We will need to watch liver function, platelet count, and neuropathy closely on Velcade. 5. Cycle 9 day 1 10/02/2020: Daratumumab 16mg/kg once monthly maintenance therapy until progression. 6. 07/31/2021: Palliative radiation therapy to right supra chondral/soft tissuearea of hip which is PET positive. She received a dose of 3000 cGy in 10 fractions from 07/31/2021 to 08/15/2021 over 15 elapsed days 7. 08/30/2021: Right hip pain improved after radiation. Due to disease progression with persistent cytopenias, changed to repeat loading doses of daratumumab 16 mg/kg weekly for cycles 1 through 3 with Revlimid 5 mg daily for 3 weeks on 1 week off. Held Revlimid second week due to neutropenia with sinus infection, resumed 3 days ago (09/17/2021). Referred for CAR-T therapy evaluation. 8. 12/18/2021: Daratumumab is now 16 mg/kg every 2 weeks with Revlimid 5 mg daily for 2 weeks on 2 weeks off due to neutropenia and thrombocytopenia. Stillpending evaluation for CAR-T therapy. 9. 01/22/2022: Patient is not deemed a candidate for stem cell transplant or CAR- T therapy at this time. Discussed changing from current Revlimid to pomalidomide with continued daratumumab 16 mg/kg every 2 weeks. Plan change in therapy in 1 month. 10. 02/19/2022: Continue daratumumab 16 mg/kg IV every 2 weeks and changed to pomalidomide now 3 mg daily days 1 through 21 of each 28-day cycle (lower dose due to baseline liver dysfunction) -- 03/19/2022: Patient was noted to tolerate Pomalyst only 1 week (03/05- 03/13/2022)due to grade 3 rash. This resolved after stopping medication 1 week later. 1 dose level reduction Pomalyst to 2 mg daily days 1 through 21 of each 28-day cycle. Also holding daratumumab daily for platelet count of 41,000 and will resume at full dose with first dose of Pomalyst. ROS Details: All systems reviewed & no additional complaints except as documented Subjective/ROS - Narrative: Constitutional: No Chills, No Diaphoresis, Stable Fatigue, No Fever, No Malaise, No Night Sweats, No Weakness, No Weight Gain, No Weight Loss Gastrointestinal: No Abdominal Pain, No Black Stool, No Bloating, No Bloody Stool, positive for constipation, No Diarrhea, No Dysphagia, No Hematemesis, No Nausea, No Postprandial Pain, No Rectal Bleeding, No Rectal Pain, No Vomiting, Other (chronic gastroesophageal reflux stable) --No jaundice or ascites but patient has longstanding nonalcoholic steatohepatitis with cirrhosis, previously followed by [facility] gastroenterology. Cardiovascular: No Chest Pain, No Edema, No Palpitations, No Syncope Genitourinary: No Discharge, No Dysuria, No Flank Pain, Frequency (chronic andunchanged), Resolved Hematuria, No Incontinence, No Nocturia, No Urgency, No Urinary Retention Musculoskeletal: + left shoulder and neck pain as per HPI (no thoracic cord compression). Improvement of prior bilateral hip/thigh pain since radiation; positive for intermittent lumbar back pain, NoChest Wall Tenderness, Improvement of prior Joint Pain, Muscle Stiffness, Myalgia (history of fibromyalgia), --unremarkable skeletal survey June 2019. 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 12/2020: F-18 PET/CT stable. 04/2021 F-18 PET/CT stable. Right hip pain mildly improved after palliative radiation. HEENT: No Blurred Vision, No Discharge, No Ear Pain, No Epistaxis, No Rhinorrhea, No Sore Throat--patient was seen in emergency department November 2019 with persistent epistaxis. She was treated withnasal clip and packing andwas advised to continue Afrin. No recurrent bleeding. 2 courses of antibio ticsin Aug-Sep 2021 for recurrent sinusitis Respiratory: No Cough, No Hemoptysis, mild Shortness of Breath (chronic and unchanged due to COPD),No Sputum, No Wheezing--shortness of breath with daratumumab reaction dose 1 04/10/2020 (given a split dose over 2 days). No recurrent reaction since first dose. Neurological: No Dizziness, Stable Numbness/Tingling (reports long-standing bilateral foot numbness--unchanged since starting low-dose Velcade 04/10/2020), NoPre-existing Deficit (no history of stroke or seizure), intermittent headache Hematologic/Lymphatic: No significant bleeding thrombocytopenia from sequestration/myeloma disease,Bruises Easily, No Enlarged Lymph Nodes, Other (reports allergy to prior platelet transfusion) Endocrine: Excessive Sweating (hot flashes, postmenopausal) Flushing, No Intolerance to Cold, Intolerance to Heat Psychiatric: No Depressed Mood, No Insomnia Integumentary: No Jaundice, No Lesions, positive for diffuse rash on Pomalyst 3mg daily as per HPI.1 level dose reduction. Allergic/Immunology: Previous pruritus with Pomalyst rash not resolved. PMFSH - History Attestation statement: The following information was validated with the patient. Source: Old Records Reviewed - Medical History Medical History: Medical History (Last Reviewed 03/19/22 @ 09:34 by Fabiola Marinelli MD) Aortic aneurysm COPD (chronic obstructive pulmonary disease) Diabetes Fibromyalgia GERD (gastroesophageal reflux disease) Hypertension Iron deficiency Multiple myeloma Neutropenia Smoldering multiple myeloma (SMM) Smoldering myeloma Temporary low platelet count - Surgical History Surgical History: Surgical History (Last Reviewed 03/19/22 @ 09:34 by Fabiola Marinelli MD) H/O: hysterectomy History of appendectomy History of cholecystectomy - Social History Smoking Status: Former smoker Tobacco Type: cigarettes Substance Use Type: None Social History Comments: Lives with son a grandaughter Home Medications & Allergies Allergies erythromycin base [From E-Mycin] Allergy (Verified 03/19/22 08:52) Hives latex Allergy (Verified 03/19/22 08:52) Unknown Reaction moxifloxacin [From Avelox] Allergy (Verified 03/19/22 08:52) Hives Quinolones Allergy (Verified 03/19/22 08:52) Unknown Reaction tetracycline Allergy (Verified 03/19/22 08:52) Unknown Reaction Home Medications carvedilol 12.5 mg tablet 12.5 mg PO BID 11/20/17 [History Confirmed 03/19/22] duloxetine 60 mg capsule,delayed release 60 mg PO DAILY 11/20/17 [History Confirmed 03/19/22] insulin detemir U-100 100 unit/mL (3 mL) subcutaneous pen 26 units SUB-Q QHS 11/20/17 [History Confirmed 03/19/22] oxycodone 10 mg tablet 10 mg PO TID PRN 11/20/17 [History Confirmed 03/19/22] albuterol sulfate 90 mcg/actuation aerosol inhaler 2 puff INHALATION Q6H PRN 11/24/17 [History Confirmed 03/19/22] fluticasone 250 mcg-salmeterol 50 mcg/dose blistr powdr for inhalation (Advair Diskus) 1 inh INHALATION Q12H PRN 11/24/17 [History Confirmed 03/19/22] omeprazole magnesium 20 mg tablet,delayed release (Prilosec OTC) 40 mg PO DAILY 11/24/17 [History Confirmed 03/19/22] cholecalciferol (vitamin D3) 25 mcg (1,000 unit) capsule (Vitamin D3) 1,000 unitPO DAILY 04/13/19 [History Confirmed 03/19/22] metformin 500 mg tablet,extended release 24 hr 500 mg PO BID 03/05/20 [History Confirmed 03/19/22] ondansetron HCl 8 mg tablet (Zofran) 8 mg PO TID PRN #30 tab 04/02/20 [Rx Confirmed 03/19/22] insulin NPH isoph U-100 human 100 unit/mL subcutaneous suspension (Novolin N NPHU-100 Insulin isophane) 20 unit SUBCUT DIRECTED 05/21/20 [History Confirmed 03/19/22] nystatin 100,000 unit/mL oral suspension 100,000 unit BUCCAL DAILY 90 Days #500 ml 06/18/20 [Rx Confirmed 03/19/22] semaglutide (Ozempic) 0.5 mg SUBCUT QWEEK 09/24/20 [History Confirmed 03/19/22] cyanocobalamin (vitamin B-12) 5,000 mcg capsule 5,000 mcg PO QWEEK 10/29/20 [History Confirmed 03/19/22] vitamin B12 0.5 mg-folic acid 1 mg tablet 1 tab PO DAILY 03/28/21 [History Confirmed 03/19/22] diazepam 5 mg tablet (Valium) 5 mg PO DIRECTED 1 Days #2 tab 07/17/21 [Rx Confirmed 03/19/22] gabapentin 300 mg tablet 600 mg PO TID 07/26/21 [History Confirmed 03/19/22] ondansetron 8 mg disintegrating tablet 8 mg PO Q8H PRN #30 tab 10/22/21 [Rx Confirmed 03/19/22] dexamethasone 4 mg tablet 20 mg PO ONCE 90 Days #60 tab 12/18/21 [Rx Confirmed 03/19/22] acyclovir 400 mg tablet 400 mg PO BID 90 Days #180 tab 12/24/21 [Rx Confirmed 03/19/22] potassium chloride 10 mEq capsule,extended release 10 meq PO DAILY #30 cap 02/24/22 [Rx Confirmed 03/19/22] pomalidomide 2 mg capsule (Pomalyst) 2 mg PO DAILY 28 Days #21 cap 03/19/22 [Rx] Objective - Height/Weight Height/Weight: Height 5 ft 2.99 in Weight 86.409 kg BSA for Today's Weight 1.98 - Vital Signs Vital Signs: 03/19/22 08:53 Temperature 96.6 F L Pulse Rate [Left Brachial] 84 Respiratory Rate 16 Blood Pressure [Right Arm] 130/84 02 Sat by Pulse Oximetry 98 - Pain Generalized Pain Intensity: 3 Bilateral Hip Pain Intensity: 5 Left Hip Pain Intensity: 4 Lower Back Pain Intensity: 7 Left Neck Pain Intensity: 4 Back Pain Intensity: 0 Right Thigh Pain Intensity: 3 Bilateral Leg Pain Intensity: 5 Bilateral Shoulder Pain Intensity: 6 Left index finger Pain Intensity: 4 - Distress Screening Distress Screen Results: RN Distress Screening Start: 02/07/20 10:17 Freq: Status: Complete Protocol: Document 05/01/20 09:33 DB (Rec: 05/01/20 09:33 DB [id number]) Distress Screening Distress Score: 0 No worry/distress Distress Screening Total 0 RN Distress Screening Start: 07/26/21 12:37 Freq: Status: Active Protocol: Document 07/26/21 13:20 DB (Rec: 07/26/21 13:20 DB [id number]) Distress Screening Distress Score: 2 Physical Concerns Pain Distress Screening Total 2 Physical Exam Narrative: Patient is alert and oriented x3. HEAD / FACE: Normocephalic. No tenderness to palpation over scalp, no sinus tenderness to palpation. EYES: Pupils are equal and reactive to light. Conjunctivae and lids are benign in appearance. Ocular movement intact. EARS: Hearing grossly intact. NOSE / MOUTH / THROAT: Nose, mouth, tongue and oropharynx exam without visible lesion. NECK / THYROID: Neck moderate limitation of range of motion--currently no significant tenderness over left sternocleidomastoid and mastoid bone. No cervical adenopathy on exam. Thyroid is symmetrical, without thyromegaly, masses or palpable nodules. LYMPHATIC: No palpable cervical, supraclavicular, axillary, or inguinal adenopathy. RESPIRATORY: Normal inspection. Lungs clear to auscultation and percussion. No wheezing, rales, rhonchi or rubs. Normal effort. Right chest wall infusion portwithout erythema. CARDIOVASCULAR: Regular rate and rhythm. No murmurs, gallops, or rubs. VASCULAR: Carotid, radial, femoral and pedal pulses present bilaterally. No bruits. ABDOMEN: Bowel sounds normoactive. Soft, nontender and non-distended. No hepatosplenomegaly. No masses. GENITOURINARY: No CVA tenderness. No suprapubic fullness or tenderness. No groinadenopathy. No evidence of hernias. INTEGUMENTARY: The skin is unremarkable. Bilateral lower extremity mild macularrash which is resolved from prior diffuse rash as per HPI. No suspicious lesions. No bruising or petechiae noted. BACK / SPINE: Mild tenderness cervical/upper thoracic spine without step off deformity. No lumbar tenderness. MUSCULOSKELETAL: Normal musculature, normal ROM upper and lower extremities, no crepitus. EXTREMITIES: Trace bilateral leg edema--improving. No cyanosis or clubbing. No Destini sign. NEUROLOGICAL: Alert and oriented. Cranial nerves intact. No gross motor or sensory deficits, patient ambulates unassisted. PSYCHIATRIC: No anxiety or evidence of depression. - ECOG Performance Status ECOG Score: 1 Results - Labs Labs: Diagram of Most Recent CBC and CMP 03/18/22 13:18 03/18/22 13:18 Labs - Last 7 Days 03/18/22 13:18: PHA Creatinine Clear 139.29, Sodium 139, Potassium 3.8, Hnkgffod700, Carbon Jfqwxxc84.5, BUN 8 L, Creatinine 0.42 L, Est GFR ( Amer) > 60, Est GFR (Non-Af Amer) > 60, Glucose 129 H, Calcium 8.9, Total Bilirubin 0.9,AST 28, ALT 29, Alkaline Phosphatase 97 H, Total Protein 5.1 L, Albumin 3.0 L, Globulin 2.1, Albumin/Globulin Ratio 1.4 03/18/22 13:18: Corrected WBC 3.0 L, Uncorrected WBC Count 3.0 L, RBC 3.71, Hgb 12.0, Hct 35.9, MCV96.6, MCH 32.4, MCHC 33.5, RDW 16.2 H, Plt Count 41 L, MPV 8.1, Neut % (Auto) 44.2, Lymph % (Auto) 38.2, Hodgeman % (Auto) 12.9, Eos % (Auto) 4.5, Baso % (Auto) 0.2, Neut # (Auto) 1.3 L, Lymph # (Auto) 1.1, Hodgeman # (Auto) 0.4, Eos # (Auto) 0.1, Baso # (Auto) 0.0, Nucleated RBC % (auto) 0.1, Platelet Estimate Decreased L, Plt Morphology Comment Normal, RBC Morphology Normal 03/05/2022: 03/05/2022: IgG 444, IgA 34, IgM 26, - Impressions No imaging for review Assessment and Plan - TNM Staging Staging: Stage IIIA Multiple Myeloma (Durie Boring criteria) (1) Multiple myeloma Qualifiers: Multiple myeloma remission status: not in remission Qualified Code(s): C90.00 - Multiple myeloma not having achieved remission Mojgan 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 She has high risk cytogenetics and I [facility] Her persistent thrombocytopenia made her ineligible for any clinical trials, and preventedher from receiving local pain procedures given her chronic low back pain. --05/2017 PET/CT images and reports performed for staging to exclude bone involvement with myeloma. 2 indeterminate areas of uptake thought to be degenerative arthritis vs early bone findings of myeloma (right parietooccipitalarea and upper sternum). She has remained asymptomatic [...] showed no lytic lesions and she has stableshoulder, hand, and right SI joint pain (although likely due to fibromyalgia. --Prior osseous survey 07/01/2019 showed osteopenia but no compression fractures or lytic lesions were identified. She had no significant change in myeloma labs(mild increase of urine M-spike, kappa/lambda ratio, and normal serum M- spike and quant immunoglobulins). Urine protein still undetectable, therefore will continue surveillance every 6 months with the same labs--no hypercalcemia, renaldysfunction (or proteinuria), anemia, or new bone symptoms. [...] proteins with urine M spike 43.1 but totalprotein 34.4, with no reported urine creatinine. --We deferred immunosuppressive chemotherapy for about 1 month due to control ofsymptoms after palliative radiation and concern of potential peak of COVID-19 inlate January early March. --She presented for follow-up 03/05/2020 and we discussed potential therapy options (with son available by phone). --I discussed her case with Dr. Piter Benavidez of malignant hematology, possibly presenting the patient in hematology tumor board at [facility]. --Infusion port placed 03/22/2020 at [facility] due to low platelets. No complications. --03/12/2020: Myeloma labs with no serum M-spike, + urine M spike 22.2mg/24h (14%). Immunofixation IgA lambda specificity. IgA normal 227, Serum kappa 20.6, serum lambda 516.7, Free kappa/lambda ratio0.04. Normal renal function and calcium. Lower ANC 600 and platelets 40,000 --04/10/2020: Started cycle 1 day 1 of weekly dexamethasone 20 mg IV (careful to watch blood sugars with diabetes and known hepatic dysfunction), decreased dose of bortezomib 0.7 mg/m? twice weekly for2 weeks on 1 week off (due to known liver disease and thrombocytopenia), and daratumumab 8mg/kg D1,D2 IV first week,then 16 mg/kg IV weekly and we may consider Revlimid as a 4th medication if needed (deferred for worsening neutropenia and thrombocytopenia--I am reluctant to add this therapy initially). --She has baseline cirrhosis with chronic thrombocytopenia and I am attempting to treat her with the least myelosuppressive regimen after 2 month deferral of therapy due to COVID-19 pandemic noted above. Patient does not have any currentsigns or symptoms of infection. On Acyclovir 400mg bid for VZV prophylaxis. --We requested prior liver biopsy from [facility] for review of the extentof her known liver dysfunction. It is doubtful she will be a high-dose chemotherapy/peripheral blood stem cell transplant candidate given her history of cirrhosis and chronic cytopenias. --04/19/2020 toxicity follow-up: Other than daratumumab reaction with cycle 1 day1 and hyperglycemiasecondary to dexamethasone, she has not had any other new toxicities of therapy thrombocytopenia remains in the 40,000 range without bleeding and we will continue treating with 50% dose Velcade as long as she doesnot have worsening hepatic function, thrombocytopenia, or neuropathy. I am sending herto diabetes management clinic for her hyperglycemia to adjust her insulin regimen (patient has previously discussed this with her primary physician who agrees). --05/21/2020: Tolerating weekly daratumumab, bortezomib, dexamethasone well. Diabetes management improving. Thrombocytopenia stable in 50,000 range without bleeding. --05/03/2020: Myeloma labs with no serum M-spike (not performed), + urine M spike now resolved. Immunofixation IgA lambda specificity. IgA normal 112, Serum kappa 7.8, serum lambda 41.3, Free kappa/lambda ratio 0.19 (improved). Normal renal function and calcium. Mildly improved ANC 900 and platelets 54,000 --06/18/2020: No new symptoms on weekly daratumumab, bortezomib, dexamethasone after dose reductionsof bortezomib for cytopenias and neuropathy. Myeloma labsshow lower IgA 72. M-spike IgG kappa afterDaratumumab--previously IgA lambda. Lambda light chain has decreased from 516 to 41.3 to now 18.5 with normalizationof K/L ratio. --08/13/2020: Improving thrombocytopenia (79,000) and decreasing M-spike, IgA and lambda light chain. Next myeloma f/u with labs in 6 weeks, sooner prn. --09/24/2020: Now completing cycle 8 Daratumumab/Velcade/Dexamethasone with decreased M-spike, low IgA and normalization of lambda light chain. Platelets stable at 60-70,000 without bleeding. With cycle 9 onward 10/02/2020, she will maintain once monthly Daratumumab only (stop Velcade and Dexamethasone). F/u every 2 months. --11/26/2020: Stable M-spike and K/L ratio on Daratumumab maintenance. Restaging F-18 PET/CT orderedfor 12/2020 and will review at next f/u. No signs/symptoms of infection rather than recent hematuria/dysuria--sending UA andCx if indicated. Leukopenia and thrombocytopenia relatively stable on current therapy. --01/21/2021: One year f/u F18 PET/CT with stable FDG avidity, monoclonal labs (SPEP, Quant Igs, kappa/lambda ratio) all pending. Stable CBC and CMP. Persistent pain left hand 2nd MCP joint--increaseduptake on PET/CT but no lesion on left hand xray from 11/2020. Sending for ortho evaluation. For nowcontinue once monthly Daratumumab. F/u with myeloma labs and exam in 2 months, sooner prn. --03/28/2021: 2 month followup visit--worsening neck/upper back/shoulder pain. Ordered thoracic spine MRI and will contact patient with results. Otherwise stable CBC, CMP and slowly improved monoclonal gammopathy (rising IgG to now normal). Next PET/CT F18 scheduled late April and I will f/u at that time. --04/24/2021: 1 month followup--no spinal stenosis on thoracic MRI and stable PET/CT bony uptake. Now worsening left sternocleidomastoid pain. Sending for cervical MRI and setting up bone marrow biopsy in the next 1-2 weeks due to declining platelets and rising lambda light chains past 2 visits. 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 Hypocellular with recent worseningplatelets without bleeding--will recheck B12, folate, and ferritin. [...] sent for plain films of the hip femurand knee showing degenerative changes but no acute [...] progression although she still has slow rise inlambda light chain and platelet count remains in the 50,000 range. She has increased bruising but no bleeding. For now we will continue daratumumab and follow closely in 6 weeks with monoclonal gammopathy labs and to review recommendations from orthopedic surgery. --08/16/2021: Pain improved after radiation but she has persistent thrombocytopenia and rising lambda light chain. She will have Echo next week and we gave her information regarding Kyprolis therapy.She will return in 2 weeks to discuss possible start of Kyprolis, lenolidamide, dexamethasone therapy. She agrees with this plan. --08/30/2021: Improvement of prior right hip pain [...] check. She will sign Revlimid consent Thursday. Sheis in agreement with this plan. --09/20/2021: Started daratumumab loading doses weekly with Revlimid on 09/04/2021. Held therapy forANC 900 and platelet 42,000 with sinus infection, now resolved and resumed Revlimid 5mg daily on 09/17. Will continue therapy as prescribed with weekly CBC and hold Revlimid as needed for cytopenias.Evaluation for CAR[facility]T therapy at [facility]. Send myeloma labs and skeletal survey in 2 weeks, f/u with me in 4 weeks. She agrees with this plan. --12/18/2020: Mojgan is now on every 2-week dosing of daratumumab with Revlimid 5 mg daily 2 weeks on 2 weeks off. No new symptoms but Dr. Benavidez at [facility] was updated to mild worsening leukopenia and thrombocytopenia (today 54,000) and gradual increase light chain analysis. We are continuing current dosing of daratumumab with Revlimid and awaiting CAR-T cell therapy. He will contactme if there is any patient change therapy. Next follow-up with me with myeloma labs in 1 month. --01/22/2022: No new symptoms but patient is not deemed a candidate for CAR-T therapy at this time. Gradual worsening lambda light chains reviewed with the patient. We will complete this cycle of daratumumab 16 mg/kg IV every 2 weeks and complete current cycle of Revlimid with change to pomalidomide4 mg daily, follow weekly CBCs after change in therapy and determine optimal dose based on symptomsand cytopenias. Patient is in agreement with this plan. Next follow-up with me in 1 month and we will defer next light chain analysis until 1month after change in therapy. --02/19/2022: Continued rise in lambda light chains and worsening thrombocytopenia. Today we reviewed informed consent for adding pomalidomide 3 mg daily days 1 through 21 every 28 cycle 2 every otherweek daratumumab. We are dropping Revlimid due to [...] initial cycle was only given 03/05-03/13/2022. Now thatradha has complete resolution of symptoms she may resume pomalidomide at 1 dose level reduction 2 mg daily for days 1 through 21 of each 28-day cycle. We are also holding her daratumumab today due to declining her platelet count 41,000 without bleeding. Repeat kappa/lambda light chain ratio was increased 80 on 4but this was her first dose of pomalidomide. Plan anticipate arrival of pomalidomide within the next 1 to 2 weeks and she may resume daratumumab on day1 of therapy. Her next follow-up will be [...] visit over 25 minutes to review chemotherapy toxicity This is a moderate complexity visit over 25 minutes for review of symptoms, cytopenias, and pomalidomide informed consent to add to daratumumab. 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 I previously reviewed her outpatient records from [facility] [place], including review of notes, laboratories, and prior bone marrow biopsy 13 years ago. 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 Most recent plateletcount is relatively stable at 54,000 but no clinical bleeding. She was previously referred to weight reduction clinic and may have slow improvement of steatohepatitis with lifestyle modification. Unless she has active bleeding or planned surgery, we will continue observation during treatment of active myelomato commence next month as noted above. --Agree with recommendation for EGD surveillance for varices (last was 09/2018--negative). This will be deferred during current COVID-19 epidemic. --Prior vitamin B12 and folic acid are normal, for known history of neuropathy. As noted above, I reviewed the negative M spike on serum protein electrophoresiswith immunofixation, but positive for Bence Murray protein on urine protein electrophoresis. Her Quantitative immunoglobulins IgG, IgA, and I gM were all within normal limits, however her serum kappa lambda light chain analysis showeda predominance of lambda light chains. --Previous labs for lupus anticoagulant with DRVVT, hexagonal phase phospholipid, anti-cardiolipin IgG and IgA, and beta 2 glycoprotein IgG and IgA were within normal limits. --Evaluated in ED November 2019 for epistaxis which resolved. Platelet count wasstable at 12/28/2019 follow-up. She continues surveillance with liver clinic at [facility] and I will continue to follow her every 6 months, sooner if newbleeding issues arise. --04/02/2020: We reviewed informed consent for Daratumumab/Velcade/Dexamethasone for active myeloma therapy. I requested prior liver biopsy results and notes from liver clinic at [facility]. Platelet count in 40,000 range but patient has had no active bleeding following infusion port placement 03/22/2020. --08/13/2020: Cycle 6 week 2 toxicity check with improved thrombocytopenia 79,000 range with no bleeding. We will continue current dosing with Velcade 0.7mg/m2 sq (now once weekly), dexamethasone 20 mg weekly, and full dose daratumumab with close follow-up of liver function and platelet counts. --09/24/2020, 01/21/2021, 03/28/2021: Platelets stable 60-70,000 with no new toxicities, started Daratumumab maintenance 10/02/2020. --04/24/2021: Platelets now down to 57,000 with rising lambda light chains. Will eval with repeat bone marrow biopsy due to nonsecretory myeloma. --05/24/2021: Bone marrow hypocellular without significant myeloma progression. Normal B12/folate stores, continue Daratumumab maintenance. --08/16/2021: Persistent thrombocytopenia in 50,000 range, consider change in therapy due to risinglambda light chains. Will check echo and review case withDr. Benavidez at to discuss next line of therapy. --08/30/2021: Stable platelets--decision to resume weekly Daratumumab 16mg first 3 cycles and change to Revlimid 5mg daily 1-21 each 28 day cycle--titrate as tolerated --09/20/2021: Platelets have declined to 40-50,000 range without mucosal bleeding. Held Revlimid atplatelets 42,000 during sinus infection, resumed after one week off. Will follow weekly CBCs on Daratumumab/Revlimid. --12/18/2021, 01/22/2022: Platelets still in the 50,000 range without mucosal bleeding. Current dosing of daratumumab every 2 weeks and Revlimid 5 mg daily 2weeks on 2 weeks off--plan to change to pomalidomide 3 mg daily next cycle. -- 02/19/2022: Last week platelets were 48,000 and we held Revlimid. This week platelets 58,000 but continuing to hold Revlimid due to change to daratumumab 16mg/kg IV every 2 weeks with pomalidomide 3 mg daily days 1 through 21 every 28-day cycle -- 03/19/2022: Platelets were down to 41,000 and we held daratumumab as well as Pomalyst for rash asnoted above. Resume Pomalyst at 2 mg days 1 through 21 every 28 days. Continue daratumumab 16 mg/kgevery 2 weeks. (3) Cancer-related pain Improved symptoms after palliative radiation to bilateral hips--one dose 02/07/2020. Will continue tofollow on myeloma chemotherapy. Extensive, but stable bone involvement on F-18 PET/CT 12/2020 and 04/2021. Recent increased leftneck and shoulder pain. Increased oxycodone dosing to three times daily, no unusual right hip pain is noted above--followed by palliative medicine. -Completed right hip radiation with persistent but improved pain--no new pain issues with follow-upvisit with radiation recently. Will continue to follow with palliative medicine. 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 She wasreferred to [facility] to attempt weight reduction through diet and exercise that may prevent further fatty infiltration that may further impairher liver function. [facility] hepatology discussed liver transplant but sheis likely no longer a candidate for this given active myeloma. We chose least hepatotoxic regimen for treatment of her active myeloma with 50% dose reduction of Velcade. Liver function remained stable since start of therapy 04/10/2020. --Requested prior liver biopsy and [facility] liver clinic records. (5) Encounter for antineoplastic immunotherapy Tolerating Daratumumab maintenance well without significant toxicities. Bone marrow biopsy did not reveal indication for change in therapy. She may require additional palliative radiation if no clearetiology found by orthopedic surgeryfor her increased right hip/femur pain. --09/04/2021: Repeat loading with weekly Daratumumab 16mg first 3 cycles and changed to Revlimid 5mgdaily 1-21 each 28 day cycle--02/19/2022 reviewed informed consent to change to pomalidomide next cycle. --03/19/2022. Pomalyst was stopped after 1 week of therapy on 03/13/2022. Daratumumab held 03/19/2022 due to platelet count 41,000. We will resume both medications on arrival of dose reduce Pomalyst 2 mg days 1 through 21 every 28- day cycle. (6) History of 2019 novel coronavirus disease (COVID-19) Patient had coronavirus infection encouraged her to complete vaccinations with booster. When she iscompleted all coronavirus vaccination with booster, she may be eligible for antivirals Evasheld (tixagevimab IM and cilgavimab IM) for passive immunity of coronavirus 19 infection. - Chemo Plan Chemo Plan (Dose, Rate, Freq): Palliative radiation to 02/07/2020, deferred active therapy for myeloma for 8 weeks due to current COVID-19 epidemic. Discussed at [facility] Tumor Board early March to determine optimal regimen given her comorbidities. --04/10/2020: cycle 1, day 1 weekly dexamethasone 20 mg IV (careful to watch bloodsugars with diabetes and known hepatic dysfunction), decreased dose of bortezomib 0.7 mg/m? twice weekly for 2 weeks on1 week off (decreased to once weekly after first cycle due to known liver disease and thrombocytopenia), and daratumumab 8mg/kg D1,D2 IV first week, then 16 mg/kg IV weekly --10/02/2020: Started Daratumumab monthly maintenance 16mg/kg IV (stopped Velcade and Dexamethasone) --Palliative radiation 07/31/2021 right hip --09/04/2021: Start weekly Daratumumab 16mg/kg first 3 cycles and change to Revlimid 5mg daily 1-21 each 28 day cycle--now 5mg daily D1-14 every 28 days--titrate as tolerated. --02/19/2022: Continue daratumumab 16 mg/kg every other week and changed Revlimidto pomalidomide 3 mg daily days 1 through 21 each 28-day cycle. --Pomalyst was stopped after 1 week of therapy on 03/13/2022. Daratumumab held 03/19/2022 due to platelet count 41,000. We will resume both medications on arrival of dose reduce Pomalyst 2 mg days 1 through 21 every 28-day cycle. Goal of Treatment: Palliative - Time with Patient Time Spent with Patient (Follow Up Visit): 25 minutes - Moderate complexity to review toxicities after change in therapy to daratumumab/pomalidomide (dropped Revlimid) Coordination of Care & Counseling Time: Greater than 50% of time spent with patient was for coordination of care (as documented) and [id number] counseling of patient and/or family. Dictated By: Fabiola Marinelli MD DD/ [id number] Signed By: <Electronically signed by MD Fabiola Marinelli> 03/19/22 [address] [facility] Work Phone: [phone]) 442-321705-04-2022 Progress note Author Meme George [facility] March 05, 2022 1:08pmNote Date/TimeMay 2021 11:53[facility] [place] [address] Rad Onc Follow Up Note - OP Signed Patient: Mojgan Pérez MR#: [id number] : 1955 Acct:[id number] Age/Sex: 66 / F Type: REG RCR Copies to: MD Yinka Downey MD~ Assessment & Plan # Mins Spent with Patient: Return to clinic as needed Assessment 66-year-old female with 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 Patient has received 2 prior courses of palliative radiation * February 2020 patient received 8 Cortez x1 to the bilateral hips and upper femurs * August 2021 patient completed a second radiation course,30 Cortez in 12 fractions to the right hipand femur due to recurrent pain in the area Both courses were completed under the care of Dr. Ahn Patient underwent a skeletal survey in October which was negative for any osseous metastatic disease. Today she is doing well with no additional sites ofmetastatic disease and no areas causing pain.Consequently we discussed that weare happy to see her back if there is a need for additional radiation or radiation related concern. 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 Patient has received 2 prior courses of palliative radiation * February 2020 patient received 8 Cortez x1 to the bilateral hips and upper femurs * August 2021 patient completed a second radiation course,30 Cortez in 12 fractions to the right hipand femur due to recurrent pain in the area Both courses were completed under the care of Dr. Ahn Patient underwent a skeletal survey in October which was negative for any osseous metastatic disease. Her Revlimid is currently on hold due to counts. Patient is seen in the chemoinfusion room today and is doing well. She denies any new areas of bonepain. She feels a second course of radiation helped considerably relieve her right hip pain. Physical Exam General: alert and oriented female in no acute distress HEENT: normocephalic, extra ocular movements intact Lungs: normal work of breathing on room air Abdomen: non acute MSK: extremities within normal limits Neuro: grossly intact Dictated By: Meme George MD DD/ [id number] Signed By: <Electronically signed by Meme George MD> 03/05/22 [address] [facility] Work Phone: [phone] 303-477204-20-2022 Progress note Author Fabiola Marinelli [facility] February 19, 2022 9:22amNote Date/TimeApril 2021 8:14am[facility] [address] [address] Hem/Onc Follow Up Note - OP Signed Patient: Mojgan Pérez MR#: [id number] : 1955 Acct:[id number] Age/Sex: 66 / F Type: REG RCR Copies to: MD Yinka Downey MD Katherine M McGraw, APRN~ Subjective Date/Time of Service: Date of Service: 02/19/2022 Time of Service: 08:09 Chief Complaint: Patient is here today for 4 week follow up for multiple myelomaand go over labs. No new concerns HPI: 02/19/2022: Mojgan is here for follow-up--no new symptoms but her platelet countdropped to 48,000 last week and we are again holding her Revlimid. She has not had any bleeding or infection recently, but she has had uptrending lambda light chains and we discussed changing her therapy from lenalidomide to pomalidomide and continuing her daratumumab which is currently every other week. Her only other concern is constipation which is likely related to her pain medications. ANC was 800 today. --Today we reviewed chemotherapy counseling for lenalidomide in combination withdaratumumab/dexamethasone (stopping Revlimid). Common toxicities were reviewed to include allergic reactions, myelosuppression, thrombosis, fatigue, nausea, vomiting, constipation, diarrhea, mouth sores, and risk of secondary malignancies. Other toxicities may include pneumonitis, neurologic, hepatic andrenal toxicities. The patient signed informed consent and will follow-up as directed. Planning a trip to [place] on March 06, therefore we will hold Revlimid until arrival of her pomalidomide, then have oral chemotherapy visit. We are starting pomalidomide at 3 mg daily days 1 through 21 every 28 days due to baseline liver dysfunction. Follow-up cycle 1 week 2. We will recheck her baseline myeloma labs on start day of pomalidomide with daratumumab. 01/22/2022: Mojgan has no new complaints. She was seen by Dr. Benavidez at for evaluation for transplant and CAR-T options but given her profound thrombocytopenia, neither of these options are felt tuyet optimal for her. She has had gradual worsening of her lambda light chains without any change of r enalfunction or hypercalcemia. Her chronic thrombocytopenia has remained in the 40-50,000 range which is lower than her prior baseline. I reviewed her options with Dr. Benavidez and it is difficult to assess best options due to her chronic thrombocytopenia but standard of care at this point would be tocontinue her daratumumab and transition from the lenalidomide to pomalidomide. We will follow closely with weekly CBCs to determine if thrombocytopenia worsens on this regimen. I will defer changing her regimen for 1 month since she is starting a new cycle of lenalidomide and has had slow progression of her lambda light chains. She will return in 1 month and will discuss pomalidomide and signed in formed consent. Patient is in agreement with this plan. 12/18/2021: Mojgan is here for 3-month follow-up. She has not had any significant changes in medical history other than testing positive for coronavirus infection in early November 2021. She has not been immunized for coronavirus. She notes persistent fatigue but no bone pain. No other recent infections or bleeding episodes. She recently changed from weekly to now every 2 weeks daratumumab 16 mg/kg and remains on low-dose lenalidomide 5 mg daily for2 weeks on 1 week off due to prior thrombocytopenia worsening. October 2021 skeletal survey showed no osteolytic lesions suggestive of myeloma. Initially she had improvement of her platelets to 70-100,000 but today platelets are down to 54,000. She also had some improvement of leukopenia but this is again down to 2800 with ANC 1300 today. Urinerandom M spike is not observed, but she has had progressive increase of her lambda light chains from 30 in December 2020 to 60.2 in October 2021. [place] lambda ratio has also started to decline to 0.21 in October 2021. For now I'm continuing her daratumumab with Revlimid at current dosing, but I contacted Dr. Benavidez at [facility] for CAR-T celleligibility. If he has recommendations to change her therapy, I will let her know. Otherwise I will have her follow-up with me in 1 month (she will have repeat myeloma labs 1 week prior to visit). 09/20/2021: After telephone consultation with Dr. Benavidez at , we resumed repeat loading doses of weekly daratumumab 16mg/kg and changed to low dose lenalidomide 5mg daily. She has had 2 courses of antibiotics for sinus infection over the past month and was noted to have neutropenia with ANC 900, platelets 44,000 week 2 of Revlimid, therefore this was held for one week and resumed Thursday after ANC returned to 1000. Platelet counts have persisted at 40-50,000 range without active bleeding. Otherwise tolerating therapy well. Still improved hip pain and ambulation after recent course of palliative radiation therapy. For now we will continue Daratumumab with Revlimid and Dexamethasone as ordered with weekly CBC. Gradually increasing lambda light chains--pending evaluation at for CAR-T celltherapy eligibility (has not yetbeen contacted for appointment). 4 week f/u with me with CBC, CMP, and myeloma labs (follow quant immunoglobulins and [place]/Lambda light chain ratio with skeletal survey in 2 weeks so results available for appointment). 08/30/2021: Mojgan is here for 2-week follow-up for completion of her palliative radiation therapywith significant improvement of pain in her right hip and pelvis. We sent her for echocardiogram performed 08/23/2021 at [facility] [place] as baseline for possible Kyprolis therapy. This returned with ejection fraction 60% which is normal with grade 1 left ventricular diastolic dysfunction and 1+ tricuspid valve regurgitation and trace to 1+ aortic valve regurgitation.Otherwise unremarkable. I discussed her case with Dr. Benavidez of malignant hematology at [facility]. He advised against Kyprolis therapy given her underlying liver dysfunction and recommended repeating loading doses of daratumumab weekly as well as low-dose lenalidomide which we will start at 5 mg daily since she has chronic thrombocytopenia. We will send for CAR-T therapy as a possible therapeutic option. The patient agreed with changing daratumumab to weekly and we will haveher sign consent next week for change to low-dose lenalidomide therapy. Next follow-up with me will be in about 2 weeks for week 2 lenalidomide with daratumumab. 08/16/2021: One month followup, she recently completed palliative radiation therapy to right hip and pelvis. Platelet count still in 50,000 range with increased bruising but no bleeding. Still has some pain in right hip but slowlyimproving after radiation therapy. Slowly worsening lambda light chain --she is scheduled for ECHO next week. We discussed possibly changing therapy from Daratumumab, Velcade, Dexamethasone to Kyprolis, low dose lenalidomide, dexamethasone if adequate cardiac function. I will discuss this with Dr. Benavidez for dosing and determine if CAR-T therapy is another possible option (although we may be limited due to chronic thrombocytopenia and liver disease). Followup 2-3 weeks to review results and possible consent for change in therapy. 07/17/2021: 2-month follow-up on multiple myeloma. She reports that Thursday she developed severe painin the right leg that started proximal to the knee creating it to the hip. She had increased pain with weightbearing on the right and has been using a walker at home secondary to this. She did not feel a pop or shift in ambulation, but has been using her Percocet for pain control at home. In reviewing her laboratories platelet count remains in the 52,000 range and she is otherwisPe tolerating daratumumab well. I recommended sending for right hip, femur, and knee plain film imaging that did not show any fracture. She does have a gradually rising lambda light chain but no other significant changes in her labs. I reviewed her case with Dr. Cheng of orthopedic surgery who also reviewed her prior PET/CT showing uptake in this area. We will obtain a right hip MRI, keep her completely nonweightbearing on the right leg with walker for transfers and she has an urgent orthopedic follow-up following her MRI. I will follow-up with her in 1 month to review management and we will determine if she requires prophylactic kenton for stability of the hip based on herMRI. 05/24/2021: Here to followup 05/03/2021 bone marrow biopsy--noted to have decreased cellularity 25%, flow cytometry with 0.2% plasma cells and a 1.5% monoclonal B- cell population. FISH showed 13q and 1qabnormalities but normal cytogenetics. No myelodysplasia seen. I reassured her that recent thrombocytopenia is more likely related to splenic sequestration from liver disease and not worsening myeloma. For now continue current regimen. Will alsorecheck B12, folate, and iron profile with next labs--followup in 2 months with myeloma labs, sooner prn. 04/24/2021: 1 month followup to review PET/CT. Over the past 2 days, she notes episodes of sharp left sided neck pain over sternocleidomastoid muscle and mastoid area. No radiculopathy down left upperextremity. No new side effects of Daratumumab. F18 PET/CT shows largely unchanged diffuse uptake through multiple bony sites in axial and articular skeleton. Lambda light chains risingover past 2 month and decline of platelet count to 57,000 without bleeding. MRIof thoracic spine did not show significant thoracic canal stenosis. Due to worsening neck pain with extensive uptake on F18 PET/CT--we will send for cervical MRI. Palliative medicine has increased Percocet to tid. We will repeat bone marrow biopsy due to rising lambda light chain and falling platelet count to determine if progression of myeloma noted. This will be scheduled in the next 1-2 weeks. 03/28/2021: 2 month followup for multiple myeloma. More recently notes neck andleft shoulder pain. Fatigue and constipation stable. Labs show stable anemia and thrombocytopenia. Serum M-spike now asymmetric gamma (no quantifiable spike). Slowly improving IgG to near normal. [place]/lambda light chain ratio normal with mildly increased lambda light chains. MRI of thoracic spine for evaluation of increasing left shoulder pain. For now we will continue current dosing of Daratumumab and recheck F18 PET/CT for response in late April 2021. 01/21/2021: Mojgan is accompanied by her daughter for 2 month followup--now Daratumumab maintenance. She notes persistent fatigue and recently added as needed laxatives to stool softener for management of constipation. Persistent left hand pain--correlates to an area of bone uptake on PET/CT. Overall F18 PET/CT appears stable with no new areas if FDG avidity (still extensive bone FDGuptake). We reviewed prior plain xrays of left hand from November--she agrees toevaluation by orthopedic surgery (determine if biopsy or steroid injections). M-spike and kappa/lambda light chains pending. CBC (platelets 60-70,000); CMP stable. Will followup in 2 months with exam and labs. 11/26/2020: Mojgan is accompanied by her daughter for 2 month followup--now Daratumumab maintenance. Stable leukopenia/low platelet 70,000. Notes 3 days of hematuria and mild dysuria. Sending UA and possible culture. Otherwise no new bone pain. Blood sugars stable. M-spike and kappa/lambda light chain ratiostable. Next f/u 2 months after one year f/u PET/CT to determine response to therapy. 09/24/2020: Mojgan presents (accompanied by her daughter) for cycle 8, week 2 followup [id number] mg/kg IV weekly, Dexamethasone 20mg weekly, and Velcade 0.7 mg/m? now sq once weekly for every 3-week cycle (21 days). She notes neuropathy symptoms are stable. Tolerating therapy well without fatigue. No bleeding and thrombocytopenia stable in 60-70,0000 range. On 10/02 she will be due for maintenance therapy with Daratumumab alone once per month. I will f/u with her in 2 months with myeloma labs, sooner as needed. Velcade and Dexamethasone will be stopped after 8 cycles. 08/13/2020: Mojgan is here for cycle 6, week 2 (day 14) daratumumab 16 mg/kg weekly, Velcade 0.7 mg/m? now sq once weekly for every 3-week cycle (21 days), and dexamethasone 20 mg weekly. No new symptoms--improving thrombocytopenia to 79,000 and improved leukopenia. 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 Still has improvement of M-spike, IgA normal and decreased lambda light chain and K/L ratio. We discussed that week 25 in Oct she will change to monthly daratumumab with weekly Velcade (1mg/m2) and Dexamethasone. Continue to follow every 6-8 weeks until maintenance schedule. 06/18/2020: Mojgan is here for cycle 3 week 3 (day 21) daratumumab 16 mg/kg weekly, Velcade 0.7 mg/m? now sq once weekly for every 5-week cycle (35 days), and dexamethasone 20 mg weekly. Tolerating well with stable leukopenia and thrombocytopenia. Mild increased symptoms of hand and foot neuropathy, but no limitation in activity. Now following with diabetes management clinic with variable glucosecontrol. We reviewed lower IgA (now M-spike IgG kappa after Daratumumab--previously IgA lambda). Lambda light chain has decreased from 516 to 41.3 to now 18.5 with normalization of K/L ratio. Continue followup myeloma labs in 6 weeks, visit in 8 weeks. 05/21/2020: Mojgan is here for cycle 2 (week 7 overall) daratumumab 16 mg/kg weekly, Velcade 0.7 mg/m? now sq once weekly for every 5-week cycle (35 days), and dexamethasone 20 mg weekly. Tolerating well with stable leukopenia and thrombocytopenia. No significant neuropathy. Noted to have improvement in lambda light chains. No further daratumumab infusion reactions. No infections,stable constipation, pain control improved. No other complaints. Continue monthly f/u with myeloma labs. --Diabetes management--added insulin on dexamethasone days. Hyperglycemia improving. 01/18/2020 (phone followup)--The patient's son was available by phone and her daughter was contactedin a separate phone call as patient presented unaccompanied due to COVID-19 precautions in our clinic during the current epidemic. Bone marrow biopsy results were reviewed as follows from procedure pe rformed 01/26/2020: --Bone marrow biopsy was suboptimal for evaluation. --Increased lambda light chain restricted monoclonal plasma cells (1.9% by flow cytometry, approximately 6% and aspirate count, but 50% by immunohistochemical stains [id number]). Sideroblastic iron present, negative for ring sideroblasts. Peripheral blood smear with mild red blood cell anisocytosis and polychromasia, leukopenia with absolute neutropenia (1000) and thrombocytopenia (54,000) consistent with prior baseline. Note: I discussed the results with Dr. Crook 01/26/2020. Preliminary findings were also discussed with Dr. Cummings 01/27/2020. Morphologic findings, immunohistochemical stains, flow cytometry, and ancillary studies may under represent the extent and severity of disease. The results of FISH myeloma panel with prognostic markers and cytogenetic analysis are pending. --Given the patient's hip pain and presence of lytic lesions, she meets clinicalcriteria for activemyeloma. Given her hip pain and lytic lesions in weightbearing areas she was offered radiation therapy. She had a limited course of hypofractionated palliative therapy to bilateral proximal femurs 02/07/[address] Ahn. We discussed that given the COVID-19 epidemic and absence of other significant changes other than bony lesions (normal renal function, normal calcium, stable cytopenias), I would defer active therapy for myeloma for 4 to 6 weeks. Since she has significant history of liver disease I will discuss her case with Dr. Piter Benavidez at [facility] malignant hematology for optimal regimen. The patient is not a transplant candidate given hernonalcoholic steatohepatitis and chronic thrombocytopenia but may be a candidate for either doublettherapy (Revlimid/dexamethasone) or triplet therapy with either Velcade/Revlimid/dexamethasone or daratumumab/Revlimid/dexamethasone. --02/03/2020: Mojgan presented unaccompanied for follow-up of bone marrow aspiration and biopsy performed by Dr. 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 The patient had been noting increased left hip pain over the past several months andplain films of the pelvis and bilateral femurs did show subtle lucencies in the bilateral proximal femurs corresponding to PET/CT findings but no other additional sclerotic lesions identified. No pathologic fractures were seen. --03/05/2020: Mojgan notes improvement of bilateral hip pain since radiation. No other changes in medical history in the past month--no infections, normal renal function, no hypercalcemia. Stable platelet counts without bleeding. Shewas given written literature regarding Dexamethasone, Velcade (thatwould be dose reduced to 0.7mg/m2 twice weekly), weekly Daratumumab and Revlimid, but I will defer decision of which regimen to use until discussion in malignant hematology tumor board. Also referring for infusion port placement prior to initiating therapy. Sign informed consent prior to initiating therapy. --Discussed with Dr. Benavidez who favors Daratumumab combination--will request prior liver biopsy and records from [facility] liver clinic. The patient and her son (by telephone) expressed understanding and will follow- up as directed in 2 weeks for consent and likely start of therapy. --04/02/2020: Mojgan presents after infusion port placement at [facility] by interventional radiology due to platelet count 40,000--she had increased bruising at site post procedure, but this has completely resolved. Her hip painis well controlled since completion of palliative radiation and no newareas of pain. She has previously reviewed information regarding Daratumumab (first dosesplit 8mg/kg IV D1,D2, then if well tolerated 16mg/kg IV weekly), Velcade at about 50% dose (for liver dysfunction) 0.7mg/m2 D1,D4,D8, D11, and [id number] IV weekly--repeat for every 3 week cycles 1st 3 cycles. She will take chemo class and likely start therapy within 2 weeks with toxicity visit in 3 weeks. Today we reviewed chemotherapy counseling for Daratumumab, Velcade, and Dexamethasone. Common toxicities were reviewed to include infusion reaction including rash/dyspnea/wheezing, myelosuppression, fatigue, nausea, vomiting, constipation, diarrhea, mouth sores, and alopecia. Other toxicities may in cludepneumonitis, neurologic, thromboembolism, hyperglycemia, hepatic and renal toxicities. The patient signed informed consent and will follow-up as directed. --04/19/2020: Mojgan is here for cycle 1 week 2 daratumumab 16 mg/kg weekly, Velcade 0.7 mg/m? twice weekly for first 2 weeks of every 3-week cycle, and dexamethasone 20 mg weekly. She did have an infusion reaction with first daratumumab with dyspnea and flushing but this improved after first dose and she has not had recurrent infusion reactions. We have continued Velcade despite platelet counts in the 40,000 range without bleeding as we know that her baseline platelet counts remain in this range and she has not had any significant change from her baseline. Dexamethasone has caused hyperglycemia with blood sugars up to 400 and we are referring to diabetes management clinic. Otherwise she denies any significant nausea, emesis, fever, chills, night sweats, constipation, diarrhea, rash, mouth sores, or alopecia. She has not hadany change of baseline neuropathy. Liver function tests remain stable. She notes that her hip pain is well controlled since prior palliative radiation and she saw radiation oncology earlier this week with no new recommendations. I will send her myeloma labs including serum and urine protein electrophoresis, quantitative immunoglobulins, and serum kappa/lambda light chains in 2 weeks andfollow-up with her in 3 weeks. She may be seen sooner if new issues arise. This is a 66-year-old lady on chronic disability has a history of arthritis, diabetes mellitus, hypertension, COPD, GERD, and fibromyalgia who was previouslyfollowed [facility] for chronic mild to moderate thrombocytopenia. She states that she was followed with Dr. Kumari prior to his senior care and was told that she had an elevated protein level as well as thrombocytopenia but never had clinical bleeding. She is 4 para4 without complicationsand was never told that she was thrombocytopenic while . She is had multiple prior surgicalprocedures without any clinical bleeding. She had been recommended for a pain procedure with Dr. Wilson but he declined to do the procedure because her platelet count was less than 100,000. For this reason she received 2 platelet transfusions, with little improvement of her platelet count and her second transfusion resulted in throat tightening due to allergy to platelets . She has never beentreated with steroids and has never been told that she has immune thrombocytopenia. She has mild leukopenia with relative neutropenia, absolute neutrophil count of 400-800 and mild lymphocytosis. Hemoglobin is normal. She has not had any bright red blood per rectum or epistaxis. She has no history ofbleeding within the family however does have a mother and sister diagnosed with colon cancer, a brother diagnosed with lung cancer, and another sister diagnosedwith breast cancer. She had prior pain in the right hand mainly at the first MCP joint with some associated swelling and right foot pain and was evaluated by podiatry. She was told that her blood tests were negative forgout. She had screening with MALLORY, CCP, and rheumatoid factor all of which were negative. She says that she previously saw Dr. Petersen for cirrhosis but did not know of any specific therapy. We reviewed these findings from her liver ultrasound ordered by Dr. Benavidez Summer 2016. Initial consultation with me March 16, 2017. --The patient has been followed by me for some time for diagnosis of smoldering myeloma with a prior bone marrow biopsy May 2017 showing 15% plasma cells but the patient remained asymptomatic without bone pain or other CRAB criteria for therapy. She is also noted to have an ascending aortic aneurysm and has chronicliver disease with cirrhosis secondary to nonalcoholic steatohepatitis. She haschronic thrombocytopenia without bleeding ranging from 50-100,000 this is felt to be due to sequestration from her nonalcoholic steatohepatitis. She was previously on a liver transplant list but was recently notified that she is no longer a candidate for liver transplant. She has had chronic pain from f ibromyalgia but noted increasing bilateral hip and upper thigh pain over the last 6 months. She also is followed for EGD/colonoscopy with last documented procedure 09/21/2018: 1. Normal EGD, 2. Mild sigmoid diverticulosis, 3. Internal hemorrhoids, grade 2, 4. Anal fissure with active bleeding cauterized by bipolar cautery Bone osseous survey in June 2019 showed osteopenia and degenerative changes but no lytic or blastic lesion. Patient had an F-18 PET scan 01/02/2020 which showed multiple areas of involvementof bones with increased SUV activity. She was contacted with these results by phone and I recommended bone marrow aspirate and biopsy for assessment and analysis. Her prior labs were reviewed. Her SPEP does not show anymonoclonal gammopathy. On VAHID there appears to be a trace of monoclonal gammopathy. Free light chain ratio is less than 100. There is no evidence of renal sufficiency. Patient is not anemic. She doeshave some abnormal areas on bone scan. - Summary of Therapies Summary of Therapies: 1. 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 2. She underwent a single dose of palliative radiation therapy to bilateral hips, receiving 800 cGyto right and left hip in 1 fraction in separate vaz (with a single isocenter). The treatments were given with AP/PA vaz [id number] MV photons and MLC blocks. 3. Deferred active therapy for myeloma 2 months given COVID-19 epidemic with increased risk of myelosuppression and viral transmission of contacts. --Follow-up 03/05/2020 I discussed her case with Dr. Piter Benavidez at malignant hematology. --Given her significant hepatic dysfunction, I presented her case at malignant hematology tumor board to discuss optimal therapy. 4. Cycle 1 day 1 04/10/2020: Dose reduced Velcade 0.7 mg/m? twice weekly (day 1,day 4, day 8, day 11)every 3 weeks with dexamethasone 20 mg weekly and daratumumab 16 mg/kg weekly of each 21-day cycle.After first week, Velcade decreased to 0.7mg sq weekly due to thrombocytopenia. --We will need to watch liver function, platelet count, and neuropathy closely on Velcade. 5. Cycle 9 day 1 10/02/2020: Daratumumab 16mg/kg once monthly maintenance therapy until progression. 6. 07/31/2021: Palliative radiation therapy to right supra chondral/soft tissuearea of hip which is PET positive. She received a dose of 3000 cGy in 10 fractions from 07/31/2021 to 08/15/2021 over 15 elapsed days 7. 08/30/2021: Right hip pain improved after radiation. Due to disease progression with persistent cytopenias, changed to repeat loading doses of daratumumab 16 mg/kg weekly for cycles 1 through 3 with Revlimid 5 mg daily for 3 weeks on 1 week off. Held Revlimid second week due to neutropenia with sinus infection, resumed 3 days ago (09/17/2021). Referred for CAR-T therapy evaluation. 8. 12/18/2021: Daratumumab is now 16 mg/kg every 2 weeks with Revlimid 5 mg daily for 2 weeks on 2 weeks off due to neutropenia and thrombocytopenia. Stillpending evaluation for CAR-T therapy. 9. 01/22/2022: Patient is not deemed a candidate for stem cell transplant or CAR- T therapy at this time. Discussed changing from current Revlimid to pomalidomide with continued daratumumab 16 mg/kg every 2 weeks. Plan change in therapy in 1 month. 10. 02/19/2022: Continue daratumumab 16 mg/kg IV every 2 weeks and changed to pomalidomide now 3 mg daily days 1 through 21 of each 28-day cycle (lower dose due to baseline liver dysfunction) ROS Details: All systems reviewed & no additional complaints except as documented Subjective/ROS - Narrative: Constitutional: No Chills, No Diaphoresis, Stable Fatigue, No Fever, No Malaise, No Night Sweats, No Weakness, No Weight Gain, No Weight Loss Gastrointestinal: No Abdominal Pain, No Black Stool, No Bloating, No Bloody Stool, positive for constipation, No Diarrhea, No Dysphagia, No Hematemesis, No Nausea, No Postprandial Pain, No Rectal Bleeding, No Rectal Pain, No Vomiting, Other (chronic gastroesophageal reflux stable) --No jaundice or ascites but patient has longstanding nonalcoholic steatohepatitis with cirrhosis, previously followed by [facility] gastroenterology. Cardiovascular: No Chest Pain, No Edema, No Palpitations, No Syncope Genitourinary: No Discharge, No Dysuria, No Flank Pain, Frequency (chronic andunchanged), Resolved Hematuria, No Incontinence, No Nocturia, No Urgency, No Urinary Retention Musculoskeletal: + left shoulder and neck pain as per HPI (no thoracic cord compression, but sending for cervical MRI). Improvement of prior bilateral hip/thigh pain since radiation; positive for intermittent lumbar back pain, No Chest Wall Tenderness, Improvement of prior Joint Pain, Muscle Stiffness, Myalgia (history of fibromyalgia), --unremarkable skeletal survey June 2019. 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 12/2020: F-18 PET/CT stable. 04/2021 F-18 PET/CT stable. Right hip pain mildly improved after palliative radiation. HEENT: No Blurred Vision, No Discharge, No Ear Pain, No Epistaxis, No Rhinorrhea, No Sore Throat--patient was seen in emergency department November 2019 with persistent epistaxis. She was treated withnasal clip and packing andwas advised to continue Afrin. No recurrent bleeding. 2 courses of antibio ticsin Aug-Sep 2021 for recurrent sinusitis Respiratory: No Cough, No Hemoptysis, mild Shortness of Breath (chronic and unchanged due to COPD),No Sputum, No Wheezing--shortness of breath with daratumumab reaction dose 1 04/10/2020 (given a split dose over 2 days). No recurrent reaction since first dose. Neurological: No Dizziness, Stable Numbness/Tingling (reports long-standing bilateral foot numbness--unchanged since starting low-dose Velcade 04/10/2020), NoPre-existing Deficit (no history of stroke or seizure), intermittent headache Hematologic/Lymphatic: No significant bleeding thrombocytopenia from sequestration/myeloma disease,Bruises Easily, No Enlarged Lymph Nodes, Other (reports allergy to prior platelet transfusion) Endocrine: Excessive Sweating (hot flashes, postmenopausal) Flushing, No Intolerance to Cold, Intolerance to Heat Psychiatric: No Depressed Mood, No Insomnia Integumentary: No Jaundice, No Lesions, No Rash Allergic/Immunology: No Pruritus PMFSH - History Attestation statement: The following information was validated with the patient. Source: Old Records Reviewed - Medical History Medical History: Medical History (Last Reviewed 02/19/22 @ 08:57 by Fabiola Marinelli MD) Aortic aneurysm COPD (chronic obstructive pulmonary disease) Diabetes Fibromyalgia GERD (gastroesophageal reflux disease) Hypertension Iron deficiency Multiple myeloma Neutropenia Smoldering multiple myeloma (SMM) Smoldering myeloma Temporary low platelet count - Surgical History Surgical History: Surgical History (Last Reviewed 02/19/22 @ 08:58 by Fabiola Marinelli MD) H/O: hysterectomy History of appendectomy History of cholecystectomy - Social History Smoking Status: Former smoker Tobacco Type: cigarettes Substance Use Type: None Social History Comments: [facility] Home Medications & Allergies Allergies erythromycin base [From E-Mycin] Allergy (Verified 02/19/22 08:04) Hives latex Allergy (Verified 02/19/22 08:04) Unknown Reaction moxifloxacin [From Avelox] Allergy (Verified 02/19/22 08:04) Hives Quinolones Allergy (Verified 02/19/22 08:04) Unknown Reaction tetracycline Allergy (Verified 02/19/22 08:04) Unknown Reaction Home Medications carvedilol 12.5 mg tablet 12.5 mg PO BID 11/20/17 [History Confirmed 02/19/22] duloxetine 60 mg capsule,delayed release 60 mg PO DAILY 11/20/17 [History Confirmed 02/19/22] insulin detemir U-100 100 unit/mL (3 mL) subcutaneous pen 26 units SUB-Q QHS 11/20/17 [History Confirmed 02/19/22] oxycodone 10 mg tablet 10 mg PO TID PRN 11/20/17 [History Confirmed 02/19/22] albuterol sulfate 90 mcg/actuation aerosol inhaler 2 puff INHALATION Q6H PRN 11/24/17 [History Confirmed 02/19/22] fluticasone 250 mcg-salmeterol 50 mcg/dose blistr powdr for inhalation (Advair Diskus) 1 inh INHALATION Q12H PRN 11/24/17 [History Confirmed 02/19/22] omeprazole magnesium 20 mg tablet,delayed release (Prilosec OTC) 40 mg PO DAILY 11/24/17 [History Confirmed 02/19/22] cholecalciferol (vitamin D3) 25 mcg (1,000 unit) capsule (Vitamin D3) 1,000 unitPO DAILY 04/13/19 [History Confirmed 02/19/22] metformin 500 mg tablet,extended release 24 hr 500 mg PO BID 03/05/20 [History Confirmed 02/19/22] ondansetron HCl 8 mg tablet (Zofran) 8 mg PO TID PRN #30 tab 04/02/20 [Rx Confirmed 02/19/22] insulin NPH isoph U-100 human 100 unit/mL subcutaneous suspension (Novolin N NPHU-100 Insulin isophane) 20 unit SUBCUT DIRECTED 05/21/20 [History Confirmed 02/19/22] nystatin 100,000 unit/mL oral suspension 100,000 unit BUCCAL DAILY 90 Days #500 ml 06/18/20 [Rx Confirmed 02/19/22] semaglutide (Ozempic) 0.5 mg SUBCUT QWEEK 09/24/20 [History Confirmed 02/19/22] cyanocobalamin (vitamin B-12) 5,000 mcg capsule 5,000 mcg PO QWEEK 10/29/20 [History Confirmed 02/19/22] vitamin B12 0.5 mg-folic acid 1 mg tablet 1 tab PO DAILY 03/28/21 [History Confirmed 02/19/22] diazepam 5 mg tablet (Valium) 5 mg PO DIRECTED 1 Days #2 tab 07/17/21 [Rx Confirmed 02/19/22] gabapentin 300 mg tablet 600 mg PO TID 07/26/21 [History Confirmed 02/19/22] ondansetron 8 mg disintegrating tablet 8 mg PO Q8H PRN #30 tab 10/22/21 [Rx Confirmed 02/19/22] potassium chloride 10 mEq capsule,extended release 10 meq PO DAILY #30 cap 11/27/21 [Rx Confirmed 02/19/22] dexamethasone 4 mg tablet 20 mg PO ONCE 90 Days #60 tab 12/18/21 [Rx Confirmed 02/19/22] acyclovir 400 mg tablet 400 mg PO BID 90 Days #180 tab 12/24/21 [Rx Confirmed 02/19/22] pomalidomide 3 mg capsule (Pomalyst) 3 mg PO DAILY #21 cap 02/19/22 [Rx] Objective - Height/Weight Height/Weight: Height 5 ft 2.99 in Weight 84.232 kg BSA for Today's Weight 1.95 - Vital Signs Vital Signs: 02/19/22 08:04 Temperature 98.0 F Pulse Rate [Left Brachial] 67 Respiratory Rate 16 Blood Pressure [Right Arm] 125/81 02 Sat by Pulse Oximetry 98 - Pain Generalized Pain Intensity: 3 Bilateral Hip Pain Intensity: 5 Left Hip Pain Intensity: 4 Lower Back Pain Intensity: 7 Left Neck Pain Intensity: 4 Back Pain Intensity: 0 Right Thigh Pain Intensity: 3 Bilateral Leg Pain Intensity: 5 Bilateral Shoulder Pain Intensity: 6 Left index finger Pain Intensity: 4 - Distress Screening Distress Screen Results: RN Distress Screening Start: 02/07/20 10:17 Freq: Status: Complete Protocol: Document 05/01/20 09:33 DB (Rec: 05/01/20 09:33 DB [facility]-[id number]) Distress Screening Distress Score: 0 No worry/distress Distress Screening Total 0 RN Distress Screening Start: 07/26/21 12:37 Freq: Status: Active Protocol: Document 07/26/21 13:20 DB (Rec: 07/26/21 13:20 DB -[id number]) Distress Screening Distress Score: 2 Physical Concerns Pain Distress Screening Total 2 Physical Exam Narrative: Patient is alert and oriented x3. HEAD / FACE: Normocephalic. No tenderness to palpation over scalp, no sinus tenderness to palpation. EYES: Pupils are equal and reactive to light. Conjunctivae and lids are benign in appearance. Ocular movement intact. EARS: Hearing grossly intact. NOSE / MOUTH / THROAT: Nose, mouth, tongue and oropharynx exam without visible lesion. NECK / THYROID: Neck moderate limitation of range of motion--currently no significant tenderness over left sternocleidomastoid and mastoid bone. No cervical adenopathy on exam. Thyroid is symmetrical, without thyromegaly, masses or palpable nodules. LYMPHATIC: No palpable cervical, supraclavicular, axillary, or inguinal adenopathy. RESPIRATORY: Normal inspection. Lungs clear to auscultation and percussion. No wheezing, rales, rhonchi or rubs. Normal effort. Right chest wall infusion portwithout erythema. CARDIOVASCULAR: Regular rate and rhythm. No murmurs, gallops, or rubs. VASCULAR: Carotid, radial, femoral and pedal pulses present bilaterally. No bruits. ABDOMEN: Bowel sounds normoactive. Soft, nontender and non-distended. No hepatosplenomegaly. No masses. GENITOURINARY: No CVA tenderness. No suprapubic fullness or tenderness. No groinadenopathy. No evidence of hernias. INTEGUMENTARY: The skin is unremarkable. No rashes. No suspicious lesions. No bruising or petechiaenoted. BACK / SPINE: Mild tenderness cervical/upper thoracic spine without step off deformity. No lumbar tenderness. MUSCULOSKELETAL: Normal musculature, normal ROM upper and lower extremities, no crepitus. EXTREMITIES: Trace bilateral leg edema--improving. No cyanosis or clubbing. No Destini sign. NEUROLOGICAL: Alert and oriented. Cranial nerves intact. No gross motor or sensory deficits, patient ambulates unassisted. PSYCHIATRIC: No anxiety or evidence of depression. - ECOG Performance Status ECOG Score: 1 Results - Labs Labs: Diagram of Most Recent CBC and CMP 02/18/22 09:55 02/18/22 09:55 Labs - Last 7 Days 02/18/22 09:55: Corrected WBC 2.3 L, Uncorrected WBC Count 2.3 L, RBC 3.83, Hgb 12.4, Hct 36.9, MCV96.2, MCH 32.4, MCHC 33.7, RDW 15.3, Plt Count 58 L, MPV 8.2, Neut % (Auto) 33.2, Lymph % (Auto) 49.0, Hodgeman % (Auto) 11.0, Eos % (Auto) 6.4, Baso % (Auto) 0.4, Neut # (Auto) 0.8 L, Lymph # (Auto) 1.1, Hodgeman # (Auto) 0.3, Eos # (Auto) 0.2, Baso # (Auto) 0.0, Nucleated RBC % (auto) 0.1, Platelet Estima te Decreased L, Plt Morphology Comment Normal, RBC Morphology Normal 02/18/22 09:55: PHA Creatinine Clear 122.85, Sodium 139, Potassium 3.7, Ewvvegyd620, Carbon Agzycdw45.7, BUN 9, Creatinine 0.47, Est GFR ( Amer) > 60, Est GFR (Non-Af Amer) > 60, Glucose 105 H, Calcium 8.9, Total Bilirubin 0.9, AST29, ALT 24, Alkaline Phosphatase 117 H, Total Protein 4.9 L, Albumin 2.9 L, Globulin 2.0, Albumin/Globulin Ratio 1.5 - Impressions SIGNS AND SYMPTOMS: increased SOB and congestion, fatigued PROTOCOL: Frontal and lateral radiograph of the chest COMPARISON: 11/07/2021 FINDINGS: The trachea is midline. There is a right-sided [id number] which is unchanged.Atherosclerotic changes are noted in the thoracic aorta. The heart and mediastinal structures are within normal limits.The lung parenchyma is clear. The bony thorax is intact. Degenerative changes are noted in the shoulders and thoracic spine. XR/XR chest 2V* IMPRESSION: No acute cardiopulmonary pathology. Chronic findings are redemonstrated, as above. Impression dictated by: Juan J Frazier M.D.02/05/2022 12:25 PM Assessment and Plan - TNM Staging Staging: Stage IIIA Multiple Myeloma (Durie Boring criteria) (1) Multiple myeloma Qualifiers: Multiple myeloma remission status: not in remission Qualified Code(s): C90.00 - Multiple myeloma not having achieved remission Mojgan 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 She has high risk cytogenetics and I [facility] Her persistent thrombocytopenia made her ineligible for any clinical trials, and preventedher from receiving local pain procedures given her chronic low back pain. --05/2017 PET/CT images and reports performed for staging to exclude bone involvement with myeloma. 2 indeterminate areas of uptake thought to be degenerative arthritis vs early bone findings of myeloma (right parietooccipitalarea and upper sternum). She has remained asymptomatic [...] showed no lytic lesions and she has stableshoulder, hand, and right SI joint pain (although likely due to fibromyalgia. --Prior osseous survey 07/01/2019 showed osteopenia but no compression fractures or lytic lesions were identified. She had no significant change in myeloma labs(mild increase of urine M-spike, kappa/lambda ratio, and normal serum M- spike and quant immunoglobulins). Urine protein still undetectable, therefore will continue surveillance every 6 months with the same labs--no hypercalcemia, renaldysfunction (or proteinuria), anemia, or new bone symptoms. -- -------- --Due to COVID-19 epidemic, her 6-month follow-up [...] proteins with urine M spike 43.1 but totalprotein 34.4, with no reported urine creatinine. --We deferred immunosuppressive chemotherapy for about 1 month due to control ofsymptoms after palliative radiation and concern of potential peak of COVID-19 inlate January early March. --She presented for follow-up 03/05/2020 and we discussed potential therapy options (with son available by phone). --I discussed her case with Dr. Piter Benavidez of malignant hematology, possibly presenting the patient in hematology tumor board at [facility]. --Infusion port placed 03/22/2020 at [facility] due to low platelets. No complications. --03/12/2020: Myeloma labs with no serum M-spike, + urine M spike 22.2mg/24h (14%). Immunofixation IgA lambda specificity. IgA normal 227, Serum kappa 20.6, serum lambda 516.7, Free kappa/lambda ratio0.04. Normal renal function and calcium. Lower ANC 600 and platelets 40,000 --04/10/2020: Started cycle 1 day 1 of weekly dexamethasone 20 mg IV (careful to watch blood sugars with diabetes and known hepatic dysfunction), decreased dose of bortezomib 0.7 mg/m? twice weekly for2 weeks on 1 week off (due to known liver disease and thrombocytopenia), and daratumumab 8mg/kg D1,D2 IV first week,then 16 mg/kg IV weekly and we may consider Revlimid as a 4th medication if needed (deferred for worsening neutropenia and thrombocytopenia--I am reluctant to add this therapy initially). --She has baseline cirrhosis with chronic thrombocytopenia and I am attempting to treat her with the least myelosuppressive regimen after 2 month deferral of therapy due to COVID-19 pandemic noted above. Patient does not have any currentsigns or symptoms of infection. On Acyclovir 400mg bid for VZV prophylaxis. --We requested prior liver biopsy from [facility] for review of the extentof her known liver dysfunction. It is doubtful she will be a high-dose chemotherapy/peripheral blood stem cell transplant candidate given her history of cirrhosis and chronic cytopenias. --04/19/2020 toxicity follow-up: Other than daratumumab reaction with cycle 1 day1 and hyperglycemiasecondary to dexamethasone, she has not had any other new toxicities of therapy thrombocytopenia remains in the 40,000 range without bleeding and we will continue treating with 50% dose Velcade as long as she doesnot have worsening hepatic function, thrombocytopenia, or neuropathy. I am sending herto diabetes management clinic for her hyperglycemia to adjust her insulin regimen (patient has previously discussed this with her primary physician who agrees). --05/21/2020: Tolerating weekly daratumumab, bortezomib, dexamethasone well. Diabetes management improving. Thrombocytopenia stable in 50,000 range without bleeding. --05/03/2020: Myeloma labs with no serum M-spike (not performed), + urine M spike now resolved. Immunofixation IgA lambda specificity. IgA normal 112, Serum kappa 7.8, serum lambda 41.3, Free kappa/lambda ratio 0.19 (improved). Normal renal function and calcium. Mildly improved ANC 900 and platelets 54,000 --06/18/2020: No new symptoms on weekly daratumumab, bortezomib, dexamethasone after dose reductionsof bortezomib for cytopenias and neuropathy. Myeloma labsshow lower IgA 72. M-spike IgG kappa afterDaratumumab--previously IgA lambda. Lambda light chain has decreased from 516 to 41.3 to now 18.5 with normalizationof K/L ratio. --08/13/2020: Improving thrombocytopenia (79,000) and decreasing M-spike, IgA and lambda light chain. Next myeloma f/u with labs in 6 weeks, sooner prn. --09/24/2020: Now completing cycle 8 Daratumumab/Velcade/Dexamethasone with decreased M-spike, low IgA and normalization of lambda light chain. Platelets stable at 60-70,000 without bleeding. With cycle 9 onward 10/02/2020, she will maintain once monthly Daratumumab only (stop Velcade and Dexamethasone). F/u every 2 months. --11/26/2020: Stable M-spike and K/L ratio on Daratumumab maintenance. Restaging F-18 PET/CT orderedfor 12/2020 and will review at next f/u. No signs/symptoms of infection rather than recent hematuria/dysuria--sending UA andCx if indicated. Leukopenia and thrombocytopenia relatively stable on current therapy. --01/21/2021: One year f/u F18 PET/CT with stable FDG avidity, monoclonal labs (SPEP, Quant Igs, kappa/lambda ratio) all pending. Stable CBC and CMP. Persistent pain left hand 2nd MCP joint--increaseduptake on PET/CT but no lesion on left hand xray from 11/2020. Sending for ortho evaluation. For nowcontinue once monthly Daratumumab. F/u with myeloma labs and exam in 2 months, sooner prn. --03/28/2021: 2 month followup visit--worsening neck/upper back/shoulder pain. Ordered thoracic spine MRI and will contact patient with results. Otherwise stable CBC, CMP and slowly improved monoclonal gammopathy (rising IgG to now normal). Next PET/CT F18 scheduled late April and I will f/u at that time. --04/24/2021: 1 month followup--no spinal stenosis on thoracic MRI and stable PET/CT bony uptake. Now worsening left sternocleidomastoid pain. Sending for cervical MRI and setting up bone marrow biopsy in the next 1-2 weeks due to declining platelets and rising lambda light chains past 2 visits. 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 Hypocellular with recent worseningplatelets without bleeding--will recheck B12, folate, and ferritin. [...] sent for plain films of the hip femurand knee showing degenerative changes but no acute [...] progression although she still has slow rise inlambda light chain and platelet count remains in the 50,000 range. She has increased bruising but no bleeding. For now we will continue daratumumab and follow closely in 6 weeks with monoclonal gammopathy labs and to review recommendations from orthopedic surgery. --08/16/2021: Pain improved after radiation but she has persistent thrombocytopenia and rising lambda light chain. She will have Echo next week and we gave her information regarding Kyprolis therapy.She will return in 2 weeks to discuss possible start of Kyprolis, lenolidamide, dexamethasone therapy. She agrees with this plan. --08/30/2021: Improvement of prior right hip pain [...] check. She will sign Revlimid consent Thursday. Sheis in agreement with this plan. --09/20/2021: Started daratumumab loading doses weekly with Revlimid on 09/04/2021. Held therapy forANC 900 and platelet 42,000 with sinus infection, now resolved and resumed Revlimid 5mg daily on 09/17. Will continue therapy as prescribed with weekly CBC and hold Revlimid as needed for cytopenias.Evaluation for CAR-T therapy at [facility]. Send myeloma labs and skeletal survey in 2 weeks, f/u with me in 4 weeks. She agrees with this plan. --12/18/2020: Mojgan is now on every 2-week dosing of daratumumab with Revlimid 5 mg daily 2 weeks on 2 weeks off. No new symptoms but Dr. Benavidez at [facility] was updated to mild worsening leukopenia and thrombocytopenia (today 54,000) and gradual increase light chain analysis. We are continuing current dosing of daratumumab with Revlimid and awaiting CAR-T cell therapy. He will contactme if there is any patient change therapy. Next follow-up with me with myeloma labs in 1 month. --01/22/2022: No new symptoms but patient is not deemed a candidate for CAR-T therapy at this time. Gradual worsening lambda light chains reviewed with the patient. We will complete this cycle of daratumumab 16 mg/kg IV every 2 weeks and complete current cycle of Revlimid with change to pomalidomide4 mg daily, follow weekly CBCs after change in therapy and determine optimal dose based on symptomsand cytopenias. Patient is in agreement with this plan. Next follow-up with me in 1 month and we will defer next light chain analysis until 1 month after change in therapy. --02/19/2022: Continued rise in lambda light chains and worsening thrombocytopenia. Today we reviewed informed consent for adding pomalidomide 3 mg daily days 1 through 21 every 28 cycle 2 every otherweek daratumumab. We are dropping Revlimid due to progression of disease and persistent thrombocytopenia. We are resending myeloma labs upon arrival of pomalidomide and continuing to hold Revlimid. Next follow-up will be cycle 1 week 3 of pomalidomide/daratumumab. No active bleeding with thrombocytopenia and okay to proceed with daratumumab with ANC 800, platelet count 58,000. Pomalidomide is dose reduced due to baseline liver dysfunction. This is a moderate complexity visit over 25 minutes for review of symptoms, cytopenias, and pomalidomide informed consent to add to daratumumab. 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 I previously reviewed her outpatient records from [facility], including review of notes, laboratories, and prior bone marrow biopsy 13 years ago. 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 Most recent platelet count is relatively stable at 54,000 but no clinical bleeding. She waspreviously referred to weight reduction clinic and may have slow improvement of steatohepatitis with lifestyle modification. Unless she has active bleeding or planned surgery, we will continue observation during treatment of active myelomato commence next month as noted above. --Agree with recommendation for EGD surveillance for varices (last was 09/2018--negative). This will be deferred during current COVID-19 epidemic. --Prior vitamin B12 and folic acid are normal, for known history of neuropathy. As noted above, I reviewed the negative M spike on serum protein electrophoresiswith immunofixation, but positive for Bence Murray protein on urine protein electrophoresis. Her Quantitative immunoglobulins IgG, IgA, and I gM were all within normal limits, however her serum kappa lambda light chain analysis showeda predominance of lambda light chains. --Previous labs for lupus anticoagulant with DRVVT, hexagonal phase phospholipid, anti-cardiolipin IgG and IgA, and beta 2 glycoprotein IgG and IgA were within normal limits. --Evaluated in ED November 2019 for epistaxis which resolved. Platelet count wasstable at 12/28/2019 follow-up. She continues surveillance with liver clinic at [facility] and I will continue to follow her every 6 months, sooner if newbleeding issues arise. --04/02/2020: We reviewed informed consent for Daratumumab/Velcade/Dexamethasone for active myeloma therapy. I requested prior liver biopsy results and notes from liver clinic at [facility]. Platelet count in 40,000 range but patient has had no active bleeding following infusion port placement 03/22/2020. --08/13/2020: Cycle 6 week 2 toxicity check with improved thrombocytopenia 79,000 range with no bleeding. We will continue current dosing with Velcade 0.7mg/m2 sq (now once weekly), dexamethasone 20 mg weekly, and full dose daratumumab with close follow-up of liver function and platelet counts. --09/24/2020, 01/21/2021, 03/28/2021: Platelets stable 60-70,000 with no new toxicities, started Daratumumab maintenance 10/02/2020. --04/24/2021: Platelets now down to 57,000 with rising lambda light chains. Will eval with repeat bone marrow biopsy due to nonsecretory myeloma. --05/24/2021: Bone marrow hypocellular without significant myeloma progression. Normal B12/folate stores, continue Daratumumab maintenance. --08/16/2021: Persistent thrombocytopenia in 50,000 range, consider change in therapy due to risinglambda light chains. Will check echo and review case with Caylacatracho at to discuss next line of therapy. --08/30/2021: Stable platelets--decision to resume weekly Daratumumab 16mg first 3 cycles and change to Revlimid 5mg daily 1-21 each 28 day cycle--titrate as tolerated --09/20/2021: Platelets have declined to 40-50,000 range without mucosal bleeding. Held Revlimid atplatelets 42,000 during sinus infection, resumed after one week off. Will follow weekly CBCs on Daratumumab/Revlimid. --12/18/2021, 01/22/2022: Platelets still in the 50,000 range without mucosal bleeding. Current dosing of daratumumab every 2 weeks and Revlimid 5 mg daily 2weeks on 2 weeks off--plan to change to pomalidomide 3 mg daily next cycle. -- 02/19/2022: Last week platelets were 48,000 and we held Revlimid. This week platelets 58,000 but continuing to hold Revlimid due to change to daratumumab 16mg/kg IV every 2 weeks with pomalidomide 3 mg daily days 1 through 21 every 28-day cycle (3) Cancer-related pain Improved symptoms after palliative radiation to bilateral hips--one dose 02/07/2020. Will continue tofollow on myeloma chemotherapy. Extensive, but stable bone involvement on F-18 PET/CT 12/2020 and 04/2021. Recent increased leftneck and shoulder pain. Increased oxycodone dosing to three times daily, no unusual right hip pain is noted above--followed by palliative medicine. -Now has completed right hip radiation with persistent but improved pain. Will continue to follow with palliative medicine. 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 She wasreferred to [facility] to attempt weight reduction through diet and exercise that may prevent further fatty infiltration that may further impairher liver function. [facility] hepatology discussed liver transplant but sheis likely no longer a candidate for this given active myeloma. We chose least hepatotoxic regimen for treatment of her active myeloma with 50% dose reduction of Velcade. Liver function remained stable since start of therapy 04/10/2020. --Requested prior liver biopsy and [facility] liver clinic records. (5) Encounter for antineoplastic immunotherapy Tolerating Daratumumab maintenance well without significant toxicities. Bone marrow biopsy did not reveal indication for change in therapy. She may require additional palliative radiation if no clearetiology found by orthopedic surgeryfor her increased right hip/femur pain. --09/04/2021: Repeat loading with weekly Daratumumab 16mg first 3 cycles and changed to Revlimid 5mgdaily 1-21 each 28 day cycle--02/19/2022 reviewed informed consent to change to pomalidomide next cycle. (6) History of 2019 novel coronavirus disease (COVID-19) Patient had coronavirus infection encouraged her to complete vaccinations with booster. When she iscompleted all coronavirus vaccination with booster, she may be eligible for antivirals Evasheld (tixagevimab IM and cilgavimab IM) for passive immunity of coronavirus 19 infection. - Chemo Plan Chemo Plan (Dose, Rate, Freq): Palliative radiation to 02/07/2020, deferred active therapy for myeloma for 8 weeks due to current COVID-19 epidemic. Discussed at [facility] early March to determine optimal regimen given her comorbidities. --04/10/2020: cycle 1, day 1 weekly dexamethasone 20 mg IV (careful to watch bloodsugars with diabetes and known hepatic dysfunction), decreased dose of bortezomib 0.7 mg/m? twice weekly for 2 weeks on1 week off (decreased to once weekly after first cycle due to known liver disease and thrombocytopenia), and daratumumab 8mg/kg D1,D2 IV first week, then 16 mg/kg IV weekly --10/02/2020: Started Daratumumab monthly maintenance 16mg/kg IV (stopped Velcade and Dexamethasone) --Palliative radiation 07/31/2021 right hip --09/04/2021: Start weekly Daratumumab 16mg/kg first 3 cycles and change to Revlimid 5mg daily 1-21 each 28 day cycle--now 5mg daily D1-14 every 28 days--titrate as tolerated. -- 02/19/2022: Continue daratumumab 16 mg/kg every other week and change Revlimidto pomalidomide 3 mg daily days 1 through 21 each 28-day cycle. Goal of Treatment: Palliative - Time with Patient Time Spent with Patient (Follow Up Visit): 25 minutes - Moderate complexity to review chemotherapy consent for change in therapy to daratumumab/pomalidomide (dropping Revlimid) Coordination of Care & Counseling Time: Greater than 50% of time spent with patient was for coordination of care (as documented) and [id number] counseling of patient and/or family. Dictated By: Fabiola Marinelli MD DD/ Signed By: <Electronically signed by MD Fabiola Marinelli> 02/19/22921 [facility] Work Phone: [phone]) 441-581603-23-2022 Progress note Author Fabiola Marinelli [facility] January 22, 2022 3:20pmNote Date/TimeMarch 2021 8:45[facility] [place] [address] Hem/Onc Follow Up Note - OP Signed Patient: Mojgan Pérez MR#: [id number] : 1955 Acct:[id number] Age/Sex: 66 / F Type: REG RCR Copies to: MD Yinka Downey MD Ehsan Malek, MD~ Subjective Date/Time of Service: Date of Service: 01/22/2022 Time of Service: 08:43 Chief Complaint: Patient is here today for 5 week follow up visit for multiple myeloma and go over labs. No new concerns HPI: 01/22/2022: Mojgan has no new complaints. She was seen by Dr. Benavidez at for evaluation for transplant and CAR-T options but given her profound thrombocytopenia, neither of these options are felt tuyet optimal for her. She has had gradual worsening of her lambda light chains without any change of r enalfunction or hypercalcemia. Her chronic thrombocytopenia has remained in the 40-50,000 range which is lower than her prior baseline. I reviewed her options with Dr. Benavidez and it is difficult to assess best options due to her chronic thrombocytopenia but standard of care at this point would be tocontinue her daratumumab and transition from the lenalidomide to pomalidomide. We will follow closely with weekly CBCs to determine if thrombocytopenia worsens on thisregimen. I will defer changing her regimen for 1 month since she is starting a new cycle of lenalidomide and has had slow progression of her lambda light chains. She will return in 1 month and will discuss pomalidomide and signed inf ormed consent. Patient is in agreement with this plan. 12/18/2021: Mojgan is here for 3-month follow-up. She has not had any significant changes in medical history other than testing positive for coronavirus infection in early November 2021. She has not been immunized for coronavirus. She notes persistent fatigue but no bone pain. No other recent infections or bleeding episodes. She recently changed from weekly to now every 2 weeks daratumumab 16 mg/kg and remains on low-dose lenalidomide 5 mg daily for 2 weekson 1 week off due to prior thrombocytopenia worsening. October 2021 skeletal survey showed no osteolytic lesions suggestive of myeloma. Initially she had improvement of her platelets to 70-100,000 but today platelets are down to 54,000. She also had some improvement of leukopenia but this is again down to 2800 with ANC 1300 today. Urinerandom M spike is not observed, but she has hadprogressive increase of her lambda light chains from30 in December 2020 to 60.2 inDecember 2020. [place] lambda ratio has also started to decline to 0.21 in October 2021. For now I'm continuing her daratumumab with Revlimid at current dosing, but I contacted Dr. Benavidez at [facility] for CAR-T cell eligibility. If he has recommendations to change her therapy, I will let her know. Otherwise I will have her follow-up with me in 1 month (she willhave repeat myeloma labs 1 week prior to visit). 09/20/2021: After telephone consultation with Dr. Benavidez at , we resumed repeat loading doses of weekly daratumumab 16mg/kg and changed to low dose lenalidomide 5mg daily. She has had 2 courses of antibiotics for sinus infection over the past month and was noted to have neutropenia with ANC 900, platelets 44,000 week 2 of Revlimid, therefore this was held for one week and resumed Thursday after ANC returned to 1000. Platelet counts have persisted at 40-50,000 range without active bleeding. Otherwise tolerating therapy well. Still improved hip pain and ambulation after recent course of palliative radiation therapy. For now we will continue Daratumumab with Revlimid and Dexamethasone as ordered with weekly CBC. Gradually increasing lambda light chains--pending evaluation at for CAR-T celltherapy eligibility (has not yetbeen contacted for appointment). 4 week f/u with me with CBC, CMP, and myeloma labs (follow quant immunoglobulins and [place]/Lambda light chain ratio with skeletal survey in 2 weeks so results available for appointment). 08/30/2021: Mojgan is here for 2-week follow-up for completion of her palliative radiation therapywith significant improvement of pain in her right hip and pelvis. We sent her for echocardiogram performed 08/23/2021 at [facility] heart and vascular [place] as baseline for possible Kyprolis therapy. This returned with ejection fraction 60% which is normal with grade 1 left ventricular diastolic dysfunction and 1+ tricuspid valve regurgitation and trace to 1+ aortic valve regurgitation.Otherwise unremarkable. I discussed her case with Dr. Benavidez of malignant hematology at [facility]. He advised against Kyprolis therapy given her underlying liver dysfunction and recommended repeating loading doses of daratumumab weekly as well as low-dose lenalidomide which we will start at 5 mg daily since she has chronic thrombocytopenia. We will send for CAR-T therapy as a possible therapeutic option. The patient agreed with changing daratumumab to weekly and we will haveher sign consent next week for change to low-dose lenalidomide therapy. Next follow-up with me will be in about 2 weeks for week 2 lenalidomide with daratumumab. 08/16/2021: One month followup, she recently completed palliative radiation therapy to right hip and pelvis. Platelet count still in 50,000 range with increased bruising but no bleeding. Still has some pain in right hip but slowlyimproving after radiation therapy. Slowly worsening lambda light chain --she is scheduled for ECHO next week. We discussed possibly changing therapy from Daratumumab, Velcade, Dexamethasone to Kyprolis, low dose lenalidomide, dexamethasone if adequate cardiac function. I will discuss this with Dr. Benavidez for dosing and determine if CAR-T therapy is another possible option (although we may be limited due to chronic thrombocytopenia and liver disease). Followup 2-3 weeks to review results and possible consent for change in therapy. 07/17/2021: 2-month follow-up on multiple myeloma. She reports that Thursday she developed severe painin the right leg that started proximal to the knee creating it to the hip. She had increased pain with weightbearing on the right and has been using a walker at home secondary to this. She did not feel a pop or shift in ambulation, but has been using her Percocet for pain control at home. In reviewing her laboratories platelet count remains in the 52,000 range and she is otherwisPe tolerating daratumumab well. I recommended sending for right hip, femur, and knee plain film imaging that did not show any fracture. She does have a gradually rising lambda light chain but no other significant changesin her labs. I reviewed her case with Dr. Cheng of orthopedic surgery who alsoreviewed her priorPET/CT showing uptake in this area. We will obtain a right hip MRI, keep her completely nonweightbearing on the right leg with walker for transfers and she has an urgent orthopedic follow-up following her MRI. I will follow-up with her in 1 month to review management and we will determine if she requires prophylactic kenton for stability of the hip based on her MRI. 05/24/2021: Here to followup 05/03/2021 bone marrow biopsy--noted to have decreased cellularity 25%, flow cytometry with 0.2% plasma cells and a 1.5% monoclonal B- cell population. FISH showed 13q and 1qabnormalities but normal cytogenetics. No myelodysplasia seen. I reassured her that recent thrombocytopenia is more likely related to splenic sequestration from liver disease and not worsening myeloma. For now continue current regimen. Will alsorecheck B12, folate, and iron profile with next labs--followup in 2 months with myeloma labs, sooner prn. 04/24/2021: 1 month followup to review PET/CT. Over the past 2 days, she notes episodes of sharp left sided neck pain over sternocleidomastoid muscle and mastoid area. No radiculopathy down left upperextremity. No new side effects of Daratumumab. F18 PET/CT shows largely unchanged diffuse uptake through multiple bony sites in axial and articular skeleton. Lambda light chains risingover past 2 month and decline of platelet count to 57,000 without bleeding. MRIof thoracic spine did not show significant thoracic canal stenosis. Due to worsening neck pain with extensive uptake on F18 PET/CT--we will send for cervical MRI. Palliative medicine has increased Percocet to tid. We will repeat bone marrow biopsy due to rising lambda light chain and falling platelet count to determine if progression of myeloma noted. This will be scheduled in the next 1-2 weeks. 03/28/2021: 2 month followup for multiple myeloma. More recently notes neck andleft shoulder pain. Fatigue and constipation stable. Labs show stable anemia and thrombocytopenia. Serum M-spike now asymmetric gamma (no quantifiable spike). Slowly improving IgG to near normal. [place]/lambda light chain ratio normal with mildly increased lambda light chains. MRI of thoracic spine for evaluation of increasing left shoulder pain. For now we will continue current dosing of Daratumumab and recheck F18 PET/CT for response in late April 2021. 01/21/2021: Mojgan is accompanied by her daughter for 2 month followup--now Daratumumab maintenance. She notes persistent fatigue and recently added as needed laxatives to stool softener for management of constipation. Persistent left hand pain--correlates to an area of bone uptake on PET/CT. Overall F18 PET/CT appears stable with no new areas if FDG avidity (still extensive bone FDGuptake). We reviewed prior plain xrays of left hand from November--she agrees toevaluation by orthopedic surgery (determine if biopsy or steroid injections). M-spike and kappa/lambda light chains pending. CBC (platelets 60-70,000); CMP stable. Will followup in 2 months with exam and labs. 11/26/2020: Mojgan is accompanied by her daughter for 2 month followup--now Daratumumab maintenance. Stable leukopenia/low platelet 70,000. Notes 3 days of hematuria and mild dysuria. Sending UA and possible culture. Otherwise no new bone pain. Blood sugars stable. M-spike and kappa/lambda light chain ratiostable. Next f/u 2 months after one year f/u PET/CT to determine response to therapy. 09/24/2020: Mojgan presents (accompanied by her daughter) for cycle 8, week 2 followup [id number] mg/kg IV weekly, Dexamethasone 20mg weekly, and Velcade 0.7 mg/m? now sq once weekly for every 3-week cycle (21 days). She notes neuropathy symptoms are stable. Tolerating therapy well without fatigue. No bleeding and thrombocytopenia stable in 60-70,0000 range. On 10/02 she will be due for maintenance therapy with Daratumumab alone once per month. I will f/u with her in 2 months with myeloma labs, sooner as needed. Velcade and Dexamethasone will be stopped after 8 cycles. 08/13/2020: Mojgan is here for cycle 6, week 2 (day 14) daratumumab 16 mg/kg weekly, Velcade 0.7 mg/m? now sq once weekly for every 3-week cycle (21 days), and dexamethasone 20 mg weekly. No new symptoms--improving thrombocytopenia to 79,000 and improved leukopenia. 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 Still has improvement of M-spike, IgA normal and decreased lambda light chain and K/L ratio. We discussed that week 25 in Oct she will change to monthly daratumumab with weekly Velcade (1mg/m2) and Dexamethasone. Continue to follow every 6-8 weeks until maintenance schedule. 06/18/2020: Mojgan is here for cycle 3 week 3 (day 21) daratumumab 16 mg/kg weekly, Velcade 0.7 mg/m? now sq once weekly for every 5-week cycle (35 days), and dexamethasone 20 mg weekly. Tolerating well with stable leukopenia and thrombocytopenia. Mild increased symptoms of hand and foot neuropathy, but no limitation in activity. Now following with diabetes management clinic with variable glucosecontrol. We reviewed lower IgA (now M-spike IgG kappa after Daratumumab--previously IgA lambda). Lambda light chain has decreased from 516 to 41.3 to now 18.5 with normalization of K/L ratio. Continue followup myeloma labs in 6 weeks, visit in 8 weeks. 05/21/2020: Mojgan is here for cycle 2 (week 7 overall) daratumumab 16 mg/kg weekly, Velcade 0.7 mg/m? now sq once weekly for every 5-week cycle (35 days), and dexamethasone 20 mg weekly. Tolerating well with stable leukopenia and thrombocytopenia. No significant neuropathy. Noted to have improvement in lambda light chains. No further daratumumab infusion reactions. No infections,stable constipation, pain control improved. No other complaints. Continue monthly f/u with myeloma labs. --Diabetes management--added insulin on dexamethasone days. Hyperglycemia improving. 01/18/2020 (phone followup)--The patient's son was available by phone and her daughter was contactedin a separate phone call as patient presented unaccompanied due to COVID-19 precautions in our clinic during the current epidemic. Bone marrow biopsy results were reviewed as follows from procedure pe rformed 01/26/2020: --Bone marrow biopsy was suboptimal for evaluation. --Increased lambda light chain restricted monoclonal plasma cells (1.9% by flow cytometry, approximately 6% and aspirate count, but 50% by immunohistochemical stains [id number]). Sideroblastic iron present, negative for ring sideroblasts. Peripheral blood smear with mild red blood cell anisocytosis and polychromasia, leukopenia with absolute neutropenia (1000) and thrombocytopenia (54,000) consistent with prior baseline. Note: I discussed the results with Dr. Crook 01/26/2020. Preliminary findings were also discussed with Dr. Cummings 01/27/2020. Morphologic findings, immunohistochemical stains, flow cytometry, and ancillary studies may under represent the extent and severity of disease. The results of FISH myeloma panelwith prognostic markers and cytogenetic analysis are pending. --Given the patient's hip pain and presence of lytic lesions, she meets clinicalcriteria for activemyeloma. Given her hip pain and lytic lesions in weightbearing areas she was offered radiation therapy. She had a limited courseof hypofractionated palliative therapy to bilateral proximal femurs [address] Ahn. We discussed that given the COVID-19 epidemic and absence of othersignificant changes other than bony lesions (normal renal function, normal calcium, stable cytopenias), I would defer active therapy for myeloma for 4 to 6 weeks. Since she has significant history ofliver disease I will discuss her case with Dr. Piter Benavidez at [facility] malignant hematology for optimal regimen. The patient is not a transplant candidate given her nonalcoholic steatohepatitis and chronic thrombocytopenia but may be a candidate for either doublet therapy (Revlimid/dexamethasone) or triplet therapy with either Velcade/Revlimid/dexamethasone or daratumumab/Revlimid/dexamethasone. --02/03/2020: Mojgan presented unaccompanied for follow-up of bone marrow aspiration and biopsy performed by Dr. 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 The patient had been noting increased left hip pain over the past several months andplain films of the pelvis and bilateral femurs did show subtle lucencies in the bilateral proximal femurs corresponding to PET/CT findings but no other additional sclerotic lesions identified. No pathologic fractures were seen. --03/05/2020: Mojgan notes improvement of bilateral hip pain since radiation. No other changes in medical history in the past month--no infections, normal renal function, no hypercalcemia. Stable platelet counts without bleeding. Shewas given written literature regarding Dexamethasone, Velcade (thatwould be dose reduced to 0.7mg/m2 twice weekly), weekly Daratumumab and Revlimid, but I will defer decision of which regimen to use until discussion in malignant hematology tumor board. Also referring for infusion port placement prior to initiating therapy. Sign informed consent prior to initiating therapy. --Discussed with Dr. Benavidez who favors Daratumumab combination--will request prior liver biopsy and records from [facility] liver clinic. The patient and her son (by telephone) expressed understanding and will follow- up as directed in 2 weeks for consent and likely start of therapy. --04/02/2020: Mojgan presents after infusion port placement at [facility] by interventional radiology due to platelet count 40,000--she had increased bruising at site post procedure, but this has completely resolved. Her hip painis well controlled since completion of palliative radiation and no newareas of pain. She has previously reviewed information regarding Daratumumab (first dosesplit 8mg/kg IV D1,D2, then if well tolerated 16mg/kg IV weekly), Velcade at about 50% dose (for liver dysfunction) 0.7mg/m2 D1,D4,D8, D11, and [id number] IV weekly--repeat for every 3 week cycles 1st 3 cycles. She will take chemo class and likely start therapy within 2 weeks with toxicity visit in 3 weeks. Today we reviewed chemotherapy counseling for Daratumumab, Velcade, and Dexamethasone. Common toxicities were reviewed to include infusion reaction including rash/dyspnea/wheezing, myelosuppression, fatigue, nausea, vomiting, constipation, diarrhea, mouth sores, and alopecia. Other toxicities may in cludepneumonitis, neurologic, thromboembolism, hyperglycemia, hepatic and renal toxicities. The patient signed informed consent and will follow-up as directed. --04/19/2020: Mojgan is here for cycle 1 week 2 daratumumab 16 mg/kg weekly, Velcade 0.7 mg/m? twice weekly for first 2 weeks of every 3-week cycle, and dexamethasone 20 mg weekly. She did have an infusion reaction with first daratumumab with dyspnea and flushing but this improved after first dose and shehas not had recurrent infusion reactions. We have continued Velcade despite platelet counts in the 40,000 range without bleeding as we know that her baseline platelet counts remain in this range and she has not had any significant change from her baseline. Dexamethasone has caused hyperglycemia with blood sugars up to 400 and we are referring to diabetes management clinic. Otherwise she denies any significant nausea, emesis, fever, chills, night sweats, constipation, diarrhea, rash, mouthsores, or alopecia. She has not hadany change of baseline neuropathy. Liver function tests remain stable. She notes that her hip pain is well controlled since prior palliative radiation and she saw radiation oncology earlier this week with no new recommendations. I will send her myeloma labs including serum and urine protein electrophoresis, quantitative immunoglobulins, and serum kappa/lambda light chains in 2 weeks andfollow-up with her in 3 weeks. She may be seen sooner if new issues arise. This is a 66-year-old lady on chronic disability has a history of arthritis, diabetes mellitus, hypertension, COPD, GERD, and fibromyalgia who was previouslyfollowed [facility] for chronic mild to moderate thrombocytopenia. She states that she was followed with Dr. Kumari prior to his senior care and was told that she had an elevated protein level as well as thrombocytopenia but never had clinical bleeding. She is 4 para4 without complicationsand was never told that she was thrombocytopenic while . She is had multiple prior surgicalprocedures without any clinical bleeding. She had been recommended for a pain procedure with Dr. Wilson but he declined to do the procedure because her platelet count was less than 100,000. For this reason she received 2 platelet transfusions, with little improvement of her platelet count and her second transfusion resulted in throat tightening due to allergy to platelets . She has never beentreated with steroids and has never been told that she has immune thrombocytopenia. She has mild leukopenia with relative neutropenia, absolute neutrophil count of 400-800 and mild lymphocytosis. Hemoglobin is normal. She has not had any bright red blood per rectum or epistaxis. She has no history ofbleeding within the family however does have a mother and sister diagnosed with colon cancer, a brother diagnosed with lung cancer, and another sister diagnosedwith breast cancer. She had prior pain in the right hand mainly at the first MCP joint with some associated swelling and right foot pain and was evaluated by podiatry. She was told that her blood tests were negative forgout. She had screening with MALLORY, CCP, and rheumatoid factor all of which were negative. She says that she previously saw Dr. Petersen for cirrhosis but did not know of any specific therapy. We reviewed these findings from her liver ultrasound ordered by Dr. Benavidez Summer 2016. Initial consultation with me March 16, 2017. --The patient has been followed by me for some time for diagnosis of smoldering myeloma with a prior bone marrow biopsy May 2017 showing 15% plasma cells but the patient remained asymptomatic without bone pain or other CRAB criteria for therapy. She is also noted to have an ascending aortic aneurysm and has chronicliver disease with cirrhosis secondary to nonalcoholic steatohepatitis. She haschronic thrombocytopenia without bleeding ranging from 50-100,000 this is felt to be due to sequestration from her nonalcoholic steatohepatitis. She was previously on a liver transplant list but was recently notified that she is no longer a candidate for liver transplant. She has had chronic pain from f ibromyalgia but noted increasing bilateral hip and upper thigh pain over the last 6 months. She also is followed for EGD/colonoscopy with last documented procedure 09/21/2018: 1. Normal EGD, 2. Mild sigmoid diverticulosis, 3. Internal hemorrhoids, grade 2, 4. Anal fissure with active bleeding cauterized by bipolar cautery Bone osseous survey in June 2019 showed osteopenia and degenerative changes but no lytic or blastic lesion. Patient had an F-18 PET scan 01/02/2020 which showed multiple areas of involvementof bones with increased SUV activity. She was contacted with these results by phone and I recommended bone marrow aspirate and biopsy for assessment and analysis. Her prior labs were reviewed. Her SPEP does not show anymonoclonal gammopathy. On VAHID there appears to be a trace of monoclonal gammopathy. Free light chain ratio is less than 100. There is no evidence of renal sufficiency. Patient is not anemic. She doeshave some abnormal areas on bone scan. - Summary of Therapies Summary of Therapies: 1. 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 2. She underwent a single dose of palliative radiation therapy to bilateral hips, receiving 800 cGyto right and left hip in 1 fraction in separate vaz (with a single isocenter). The treatments were given with AP/PA vaz [id number] MV photons and MLC blocks. 3. Deferred active therapy for myeloma 2 months given COVID-19 epidemic with increased risk of myelosuppression and viral transmission of contacts. --Follow-up 03/05/2020 I discussed her case with Dr. Piter Benavidez at malignant hematology. --Given her significant hepatic dysfunction, I presented her case at malignant hematology tumor board to discuss optimal therapy. 4. Cycle 1 day 1 04/10/2020: Dose reduced Velcade 0.7 mg/m? twice weekly (day 1,day 4, day 8, day 11)every 3 weeks with dexamethasone 20 mg weekly and daratumumab 16 mg/kg weekly of each 21-day cycle.After first week, Velcade decreased to 0.7mg sq weekly due to thrombocytopenia. --We will need to watch liver function, platelet count, and neuropathy closely on Velcade. 5. Cycle 9 day 1 10/02/2020: Daratumumab 16mg/kg once monthly maintenance therapy until progression. 6. 07/31/2021: Palliative radiation therapy to right supra chondral/soft tissuearea of hip which is PET positive. She received a dose of 3000 cGy in 10 fractions from 07/31/2021 to 08/15/2021 over 15 elapsed days 7. 08/30/2021: Right hip pain improved after radiation. Due to disease progression with persistent cytopenias, changed to repeat loading doses of daratumumab 16 mg/kg weekly for cycles 1 through 3 with Revlimid 5 mg daily for 3 weeks on 1 week off. Held Revlimid second week due to neutropenia with sinus infection, resumed 3 days ago (09/17/2021). Referred for CAR-T therapy evaluation. 8. 12/18/2021: Daratumumab is now 16 mg/kg every 2 weeks with Revlimid 5 mg daily for 2 weeks on 2 weeks off due to neutropenia and thrombocytopenia. Stillpending evaluation for CAR-T therapy. 9. 01/22/2022: Patient is not deemed a candidate for stem cell transplant or CAR- T therapy at this time. Discussed changing from current Revlimid to pomalidomide 4 mg daily 21 of 28-day cycle with continue daratumumab 16 mg/kg every 2 weeks. Likely change in therapy in about 1 month. ROS Details: All systems reviewed & no additional complaints except as documented Subjective/ROS - Narrative: Constitutional: No Chills, No Diaphoresis, Stable Fatigue, No Fever, No Malaise, No Night Sweats, No Weakness, No Weight Gain, No Weight Loss Gastrointestinal: No Abdominal Pain, No Black Stool, No Bloating, No Bloody Stool, No Constipation,No Diarrhea, No Dysphagia, No Hematemesis, No Nausea, NoPostprandial Pain, No Rectal Bleeding, No Rectal Pain, No Vomiting, Other (chronic gastroesophageal reflux stable) --No jaundice or ascites but patient has longstanding nonalcoholic steatohepatitis with cirrhosis, previously followed by [facility] gastroenterology. Cardiovascular: No Chest Pain, No Edema, No Palpitations, No Syncope Genitourinary: No Discharge, No Dysuria, No Flank Pain, Frequency (chronic andunchanged), Resolved Hematuria, No Incontinence, No Nocturia, No Urgency, No Urinary Retention Musculoskeletal: + left shoulder and neck pain as per HPI (no thoracic cord compression, but sending for cervical MRI). Improvement of prior bilateral hip/thigh pain since radiation; positive for intermittent lumbar back pain, No Chest Wall Tenderness, Improvement of prior Joint Pain, Muscle Stiffness, Myalgia (history of fibromyalgia), --unremarkable skeletal survey June 2019. 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 12/2020: F-18 PET/CT stable. 04/2021 F-18 PET/CT stable. Right hip pain mildly improved after palliative radiation. HEENT: No Blurred Vision, No Discharge, No Ear Pain, No Epistaxis, No Rhinorrhea, No Sore Throat--patient was seen in emergency department November 2019 with persistent epistaxis. She was treated withnasal clip and packing andwas advised to continue Afrin. No recurrent bleeding. 2 courses of antibio ticsin Aug-Sep 2021 for recurrent sinusitis Respiratory: No Cough, No Hemoptysis, mild Shortness of Breath (chronic and unchanged due to COPD),No Sputum, No Wheezing--shortness of breath with daratumumab reaction dose 1 04/10/2020 (given a split dose over 2 days). No recurrent reaction since first dose. Neurological: No Dizziness, Stable Numbness/Tingling (reports long-standing bilateral foot numbness--unchanged since starting low-dose Velcade 04/10/2020), NoPre-existing Deficit (no history of stroke or seizure), intermittent headache Hematologic/Lymphatic: No significant bleeding thrombocytopenia from sequestration/myeloma disease,Bruises Easily, No Enlarged Lymph Nodes, Other (reports allergy to prior platelet transfusion) Endocrine: Excessive Sweating (hot flashes, postmenopausal) Flushing, No Intolerance to Cold, Intolerance to Heat Psychiatric: No Depressed Mood, No Insomnia Integumentary: No Jaundice, No Lesions, No Rash Allergic/Immunology: No Pruritus PMFSH - History Attestation statement: The following information was validated with the patient. Source: Old Records Reviewed - Medical History Medical History: Medical History (Last Reviewed 01/22/22 @ 15:15 by Fabiola Marinelli MD) Aortic aneurysm COPD (chronic obstructive pulmonary disease) Diabetes Fibromyalgia GERD (gastroesophageal reflux disease) Hypertension Iron deficiency Multiple myeloma Neutropenia Smoldering multiple myeloma (SMM) Smoldering myeloma Temporary low platelet count - Surgical History Surgical History: Surgical History (Last Reviewed 01/22/22 @ 15:15 by Fabiola Marinelli MD) H/O: hysterectomy History of appendectomy History of cholecystectomy - Social History Smoking Status: Former smoker Tobacco Type: cigarettes Substance Use Type: None Social History Comments: Lives with son a [facility] Home Medications & Allergies Allergies erythromycin base [From E-Mycin] Allergy (Verified 01/22/22 08:39) Hives latex Allergy (Verified 01/22/22 08:39) Unknown Reaction moxifloxacin [From Avelox] Allergy (Verified 01/22/22 08:39) Hives Quinolones Allergy (Verified 01/22/22 08:39) Unknown Reaction tetracycline Allergy (Verified 01/22/22 08:39) Unknown Reaction Home Medications carvedilol 12.5 mg tablet 12.5 mg PO BID 11/20/17 [History Confirmed 12/18/21] duloxetine 60 mg capsule,delayed release 60 mg PO DAILY 11/20/17 [History Confirmed 12/18/21] insulin detemir U-100 100 unit/mL (3 mL) subcutaneous pen 26 units SUB-Q QHS 11/20/17 [History Confirmed 12/18/21] oxycodone 10 mg tablet 10 mg PO TID PRN 11/20/17 [History Confirmed 12/18/21] albuterol sulfate 90 mcg/actuation aerosol inhaler 2 puff INHALATION Q6H PRN 11/24/17 [History Confirmed 12/18/21] fluticasone 250 mcg-salmeterol 50 mcg/dose blistr powdr for inhalation (Advair Diskus) 1 inh INHALATION Q12H PRN 11/24/17 [History Confirmed 12/18/21] omeprazole magnesium 20 mg tablet,delayed release (Prilosec OTC) 40 mg PO DAILY 11/24/17 [History Confirmed 12/18/21] cholecalciferol (vitamin D3) 25 mcg (1,000 unit) capsule (Vitamin D3) 1,000 unitPO DAILY 04/13/19 [History Confirmed 12/18/21] metformin 500 mg tablet,extended release 24 hr 500 mg PO BID 03/05/20 [History Confirmed 12/18/21] ondansetron HCl 8 mg tablet (Zofran) 8 mg PO TID PRN #30 tab 04/02/20 [Rx Confirmed 12/18/21] insulin NPH isoph U-100 human 100 unit/mL subcutaneous suspension (Novolin N NPHU-100 Insulin isophane) 20 unit SUBCUT DIRECTED 05/21/20 [History Confirmed 12/18/21] nystatin 100,000 unit/mL oral suspension 100,000 unit BUCCAL DAILY 90 Days #500 ml 06/18/20 [Rx Confirmed 12/18/21] semaglutide (Ozempic) 0.5 mg SUBCUT QWEEK 09/24/20 [History Confirmed 12/18/21] cyanocobalamin (vitamin B-12) 5,000 mcg capsule 5,000 mcg PO QWEEK 10/29/20 [History Confirmed 12/18/21] vitamin B12 0.5 mg-folic acid 1 mg tablet 1 tab PO DAILY 03/28/21 [History Confirmed 12/18/21] diazepam 5 mg tablet (Valium) 5 mg PO DIRECTED 1 Days #2 tab 07/17/21 [Rx Confirmed 12/18/21] gabapentin 300 mg tablet 600 mg PO TID 07/26/21 [History Confirmed 12/18/21] ondansetron 8 mg disintegrating tablet 8 mg PO Q8H PRN #30 tab 10/22/21 [Rx Confirmed 12/18/21] potassium chloride 10 mEq capsule,extended release 10 meq PO DAILY #30 cap 11/27/21 [Rx Confirmed 12/18/21] dexamethasone 4 mg tablet 20 mg PO ONCE 90 Days #60 tab 12/18/21 [Rx] acyclovir 400 mg tablet 400 mg PO BID 90 Days #180 tab 12/24/21 [Rx] lenalidomide 5 mg capsule (Revlimid) 5 mg PO DAILY #14 cap 12/24/21 [Rx] Objective - Height/Weight Height/Weight: Height 5 ft 2.99 in Weight 85.729 kg BSA for Today's Weight 1.96 - Vital Signs Vital Signs: 01/22/22 08:40 Temperature 97.9 F Pulse Rate [Left Brachial] 82 Respiratory Rate 16 Blood Pressure [Right Arm] 131/79 02 Sat by Pulse Oximetry 97 - Pain Generalized Pain Intensity: 3 Bilateral Hip Pain Intensity: 5 Left Hip Pain Intensity: 4 Lower Back Pain Intensity: 7 Left Neck Pain Intensity: 4 Back Pain Intensity: 0 Right Thigh Pain Intensity: 3 Bilateral Leg Pain Intensity: 5 Bilateral Shoulder Pain Intensity: 6 Left index finger Pain Intensity: 4 - Distress Screening Distress Screen Results: RN Distress Screening Start: 02/07/20 10:17 Freq: Status: Complete Protocol: Document 05/01/20 09:33 DB (Rec: 05/01/20 09:33 DB [facility]-[id number]) Distress Screening Distress Score: 0 No worry/distress Distress Screening Total 0 RN Distress Screening Start: 07/26/21 12:37 Freq: Status: Active Protocol: Document 07/26/21 13:20 DB (Rec: 07/26/21 13:20 DB -[id number]) Distress Screening Distress Score: 2 Physical Concerns Pain Distress Screening Total 2 Physical Exam Narrative: Patient is alert and oriented x3. HEAD / FACE: Normocephalic. No tenderness to palpation over scalp, no sinus tenderness to palpation. EYES: Pupils are equal and reactive to light. Conjunctivae and lids are benign in appearance. Ocular movement intact. EARS: Hearing grossly intact. NOSE / MOUTH / THROAT: Nose, mouth, tongue and oropharynx exam without visible lesion. NECK / THYROID: Neck is with moderate limitation of range of motion--tenderness over left sternocleidomastoid and mastoid bone. No cervical adenopathy on exam. Thyroid is symmetrical, without thyromegaly, masses or palpable nodules. LYMPHATIC: No palpable cervical, supraclavicular, axillary, or inguinal adenopathy. RESPIRATORY: Normal inspection. Lungs clear to auscultation and percussion. No wheezing, rales, rhonchi or rubs. Normal effort. Right chest wall infusion portwithout erythema. CARDIOVASCULAR: Regular rate and rhythm. No murmurs, gallops, or rubs. VASCULAR: Carotid, radial, femoral and pedal pulses present bilaterally. No bruits. ABDOMEN: Bowel sounds normoactive. Soft, nontender and non-distended. No hepatosplenomegaly. No masses. GENITOURINARY: No CVA tenderness. No suprapubic fullness or tenderness. No groinadenopathy. No evidence of hernias. INTEGUMENTARY: The skin is unremarkable. No rashes. No suspicious lesions. No bruising or petechiaenoted. BACK / SPINE: Mild tenderness cervical/upper thoracic spine without step off deformity. No lumbar tenderness. MUSCULOSKELETAL: Normal musculature, normal ROM upper and lower extremities, no crepitus. EXTREMITIES: Trace bilateral leg edema--improving. No cyanosis or clubbing. No Destini sign. NEUROLOGICAL: Alert and oriented. Cranial nerves intact. No gross motor or sensory deficits, patient ambulates unassisted. PSYCHIATRIC: No anxiety or evidence of depression. - ECOG Performance Status ECOG Score: 1 Results - Labs Labs: Diagram of Most Recent CBC and CMP 01/21/22 13:50 01/21/22 13:50 Labs - Last 7 Days 01/21/22 13:50: PHA Creatinine Clear 115.74, Sodium 139, Potassium 3.7, [id number], Carbon Iskleeq70.4, BUN 7 L, Creatinine 0.50, Est GFR ( Amer) > 60,Est GFR (Non-Af Amer) > 60, Glucose 96, Calcium 8.7, Total Bilirubin 0.9, AST 26, ALT 22, Alkaline Phosphatase 85, Total Protein 5.0 L, Albumin 3.0 L, Globulin 2.0, Albumin/Globulin Ratio 1.5 01/21/22 13:50: Corrected WBC 3.0 L, Uncorrected WBC Count 3.0 L, RBC 3.75, Hgb 12.7, Hct 37.2, MCV99.0, MCH 33.7, MCHC 34.1, RDW 15.5 H, Plt Count 58 L, MPV 8.5, Neut % (Auto) 37.2, Lymph % (Auto) 45.9, Hodgeman % (Auto) 12.8, Eos % (Auto) 3.9, Baso % (Auto) 0.2, Neut # (Auto) 1.1 L, Lymph # (Auto) 1.4, Hodgeman # (Auto) 0.4, Eos # (Auto) 0.1, Baso # (Auto) 0.0, Nucleated RBC % (auto) 0.0 - Impressions No new imaging for review. 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 She has high risk cytogenetics and I [facility] Her persistent thrombocytopenia made her ineligible for any clinical trials, and preventedher from receiving local pain procedures given her chronic low back pain. --05/2017 PET/CT images and reports performed for staging to exclude bone involvement with myeloma. 2 indeterminate areas of uptake thought to be degenerative arthritis vs early bone findings of myeloma (right parietooccipitalarea and upper sternum). She has remained asymptomatic [...] showed no lytic lesions and she has stableshoulder, hand, and right SI joint pain (although likely due to fibromyalgia. --Prior osseous survey 07/01/2019 showed osteopenia but no compression fractures or lytic lesions were identified. She had no significant change in myeloma labs(mild increase of urine M-spike, kappa/lambda ratio, and normal serum M- spike and quant immunoglobulins). Urine protein still undetectable, therefore will continue surveillance every 6 months with the same labs--no hypercalcemia, renaldysfunction (or proteinuria), anemia, or new bone symptoms. --Due to COVID- epidemic, her 6-month follow-up was performed by [...] proteins with urine M spike 43.1 but totalprotein 34.4, with no reported urine creatinine. --We deferred immunosuppressive chemotherapy for about 1 month due to control ofsymptoms after palliative radiation and concern of potential peak of COVID-19 inlate January early March. --She presented for follow-up 03/05/2020 and we discussed potential therapy options (with son available by phone). --I discussed her case with Dr. Piter Benavidez of malignant hematology, possibly presenting the patient in hematology tumor board at [facility]. --Infusion port placed 03/22/2020 at [facility] due to low platelets. No complications. --03/12/2020: Myeloma labs with no serum M-spike, + urine M spike 22.2mg/24h (14%). Immunofixation IgA lambda specificity. IgA normal 227, Serum kappa 20.6, serum lambda 516.7, Free kappa/lambda ratio0.04. Normal renal function and calcium. Lower ANC 600 and platelets 40,000 --04/10/2020: Started cycle 1 day 1 of weekly dexamethasone 20 mg IV (careful to watch blood sugars with diabetes and known hepatic dysfunction), decreased dose of bortezomib 0.7 mg/m? twice weekly for2 weeks on 1 week off (due to known liver disease and thrombocytopenia), and daratumumab 8mg/kg D1,D2 IV first week,then 16 mg/kg IV weekly and we may consider Revlimid as a 4th medication if needed (deferred for worsening neutropenia and thrombocytopenia--I am reluctant to add this therapy initially). --She has baseline cirrhosis with chronic thrombocytopenia and I am attempting to treat her with the least myelosuppressive regimen after 2 month deferral of therapy due to COVID-19 pandemic noted above. Patient does not have any currentsigns or symptoms of infection. On Acyclovir 400mg bid for VZV prophylaxis. --We requested prior liver biopsy from [facility] for review of the extentof her known liver dysfunction. It is doubtful she will be a high-dose chemotherapy/peripheral blood stem cell transplant candidate given her history of cirrhosis and chronic cytopenias. --04/19/2020 toxicity follow-up: Other than daratumumab reaction with cycle 1 day1 and hyperglycemiasecondary to dexamethasone, she has not had any other new toxicities of therapy thrombocytopenia remains in the 40,000 range without bleeding and we will continue treating with 50% dose Velcade as long as she doesnot have worsening hepatic function, thrombocytopenia, or neuropathy. I am sending herto diabetes management clinic for her hyperglycemia to adjust her insulin regimen (patient has previously discussed this with her primary physician who agrees). --05/21/2020: Tolerating weekly daratumumab, bortezomib, dexamethasone well. Diabetes management improving. Thrombocytopenia stable in 50,000 range without bleeding. --05/03/2020: Myeloma labs with no serum M-spike (not performed), + urine M spike now resolved. Immunofixation IgA lambda specificity. IgA normal 112, Serum kappa 7.8, serum lambda 41.3, Free kappa/lambda ratio 0.19 (improved). Normal renal function and calcium. Mildly improved ANC 900 and platelets 54,000 --06/18/2020: No new symptoms on weekly daratumumab, bortezomib, dexamethasone after dose reductionsof bortezomib for cytopenias and neuropathy. Myeloma labsshow lower IgA 72. M-spike IgG kappa afterDaratumumab--previously IgA lambda. Lambda light chain has decreased from 516 to 41.3 to now 18.5 with normalizationof K/L ratio. --08/13/2020: Improving thrombocytopenia (79,000) and decreasing M-spike, IgA and lambda light chain. Next myeloma f/u with labs in 6 weeks, sooner prn. --09/24/2020: Now completing cycle 8 Daratumumab/Velcade/Dexamethasone with decreased M-spike, low IgA and normalization of lambda light chain. Platelets stable at 60-70,000 without bleeding. With cycle 9 onward 10/02/2020, she will maintain once monthly Daratumumab only (stop Velcade and Dexamethasone). F/u every 2 months. --11/26/2020: Stable M-spike and K/L ratio on Daratumumab maintenance. Restaging F-18 PET/CT orderedfor 12/2020 and will review at next f/u. No signs/symptoms of infection rather than recent hematuria/dysuria--sending UA andCx if indicated. Leukopenia and thrombocytopenia relatively stable on current therapy. --01/21/2021: One year f/u F18 PET/CT with stable FDG avidity, monoclonal labs (SPEP, Quant Igs, kappa/lambda ratio) all pending. Stable CBC and CMP. Persistent pain left hand 2nd MCP joint--increaseduptake on PET/CT but no lesion on left hand xray from 11/2020. Sending for ortho evaluation. For nowcontinue once monthly Daratumumab. F/u with myeloma labs and exam in 2 months, sooner prn. --03/28/2021: 2 month followup visit--worsening neck/upper back/shoulder pain. Ordered thoracic spine MRI and will contact patient with results. Otherwise stable CBC, CMP and slowly improved monoclonal gammopathy (rising IgG to now normal). Next PET/CT F18 scheduled late April and I will f/u at that time. --04/24/2021: 1 month followup--no spinal stenosis on thoracic MRI and stable PET/CT bony uptake. Now worsening left sternocleidomastoid pain. Sending for cervical MRI and setting up bone marrow biopsy in the next 1-2 weeks due to declining platelets and rising lambda light chains past 2 visits. 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 Hypocellular with recent worseningplatelets without bleeding--will recheck B12, folate, and ferritin. [...] sent for plain films of the hip femurand knee showing degenerative changes but no acute [...] progression although she still has slow rise inlambda light chain and platelet count remains in the 50,000 range. She has increased bruising but no bleeding. For now we will continuedaratumumab and follow closely in 6 weeks with monoclonal gammopathy labs and toreview recommendations from orthopedic surgery. --08/16/2021: Pain improved after radiation but she has persistent thrombocytopenia and rising lambda light chain. She will have Echo next week and we gave her information regarding Kyprolis therapy.She will return in 2 weeks to discuss possible start of Kyprolis, lenolidamide, dexamethasone therapy. She agrees with this plan. --08/30/2021: Improvement of prior right hip pain [...] check. She will sign Revlimid consent Thursday. Sheis in agreement with this plan. --09/20/2021: Started daratumumab loading doses weekly with Revlimid on 09/04/2021. Held therapy forANC 900 and platelet 42,000 with sinus infection, now resolved and resumed Revlimid 5mg daily on 09/17. Will continue therapy as prescribed with weekly CBC and hold Revlimid as needed for cytopenias.Evaluation for CAR[facility]T therapy at [facility]. Send myeloma labs and skeletal survey in 2 weeks, f/u with me in 4 weeks. She agrees with this plan. --12/18/2020: Mojgan is now on every 2-week dosing of daratumumab with Revlimid 5 mg daily 2 weeks on 2 weeks off. No new symptoms but Dr. Benavidez at [facility] was updated to mild worsening leukopenia and thrombocytopenia (today 54,000) and gradual increase light chain analysis. We are continuing current dosing of daratumumab with Revlimid and awaiting CAR-T cell therapy. He will contactme if there is any patient change therapy. Next follow-up with me with myeloma labs in 1 month. --01/22/2022: No new symptoms but patient is not deemed a candidate for CAR-T therapy at this time. Gradual worsening lambda light chains reviewed with the patient. We will complete this cycle of daratumumab 16 mg/kg IV every 2 weeks and complete current cycle of Revlimid with change to pomalidomide4 mg daily, follow weekly CBCs after change in therapy and determine optimal dose based on symptomsand cytopenias. Patient is in agreement with this plan. Next follow-up with me in 1 month and we will defer next light chain analysis until 1 month after change in therapy. This is a moderate complexity visit over 25 minutes for review of symptoms on current therapy, cytopenias, discussion of recent referral for CAR-T therapy evaluation. 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 I previously reviewed her outpatient records from [facility] [place], including review of notes, laboratories, and prior bone marrow biopsy 13 years ago. 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 Most recent platelet count is relatively stable at 54,000 but no clinical bleeding. She waspreviously referred to weight reduction clinic and may have slow improvement of steatohepatitis with lifestyle modification. Unless she has active bleeding or planned surgery, we will continue observation during treatment of active myelomato commence next month as noted above. --Agree with recommendation for EGD surveillance for varices (last was 09/2018--negative). This will be deferred during current COVID-19 epidemic. --Prior vitamin B12 and folic acid are normal, for known history of neuropathy. As noted above, I reviewed the negative M spike on serum protein electrophoresiswith immunofixation, but positive for Bence Murray protein on urine protein electrophoresis. Her Quantitative immunoglobulins IgG, IgA, and I gM were all within normal limits, however her serum kappa lambda light chain analysis showeda predominance of lambda light chains. --Previous labs for lupus anticoagulant with DRVVT, hexagonal phase phospholipid, anti-cardiolipin IgG and IgA, and beta 2 glycoprotein IgG and IgA were within normal limits. --Evaluated in ED November 2019 for epistaxis which resolved. Platelet count wasstable at 12/28/2019 follow-up. She continues surveillance with liver clinic at [facility] and I will continue to follow her every 6 months, sooner if newbleeding issues arise. --04/02/2020: We reviewed informed consent for Daratumumab/Velcade/Dexamethasone for active myeloma therapy. I requested prior liver biopsy results and notes from liver clinic at [facility]. Platelet count in 40,000 range but patient has had no active bleeding following infusion port placement 03/22/2020. --08/13/2020: Cycle 6 week 2 toxicity check with improved thrombocytopenia 79,000 range with no bleeding. We will continue current dosing with Velcade 0.7mg/m2 sq (now once weekly), dexamethasone 20 mg weekly, and full dose daratumumab with close follow-up of liver function and platelet counts. --09/24/2020, 01/21/2021, 03/28/2021: Platelets stable 60-70,000 with no new toxicities, started Daratumumab maintenance 10/02/2020. --04/24/2021: Platelets now down to 57,000 with rising lambda light chains. Will eval with repeat bone marrow biopsy due to nonsecretory myeloma. --05/24/2021: Bone marrow hypocellular without significant myeloma progression. Normal B12/folate stores, continue Daratumumab maintenance. --08/16/2021: Persistent thrombocytopenia in 50,000 range, consider change in therapy due to risinglambda light chains. Will check echo and review case with Caylacatracho at to discuss next line of therapy. --08/30/2021: Stable platelets--decision to resume weekly Daratumumab 16mg first 3 cycles and change to Revlimid 5mg daily 1-21 each 28 day cycle--titrate as tolerated --09/20/2021: Platelets have declined to 40-50,000 range without mucosal bleeding. Held Revlimid atplatelets 42,000 during sinus infection, resumed after one week off. Will follow weekly CBCs on Daratumumab/Revlimid. --12/18/2021, 01/22/2022: Platelets still in the 50,000 range without mucosal bleeding. Current dosing of daratumumab every 2 weeks and Revlimid 5 mg daily 2weeks on 2 weeks off--plan to change to pomalidomide 4 mg daily as noted above. Next f/u one month. (3) Cancer-related pain Improved symptoms after palliative radiation to bilateral hips--one dose 02/07/2020. Will continue tofollow on myeloma chemotherapy. Extensive, but stable bone involvement on F-18 PET/CT 12/2020 and 04/2021. Recent increased leftneck and shoulder pain. Increased oxycodone dosing to three times daily, no unusual right hip pain is noted above--followed by palliative medicine. -Now has completed right hip radiation with persistent but improved pain. Will continue to follow with palliative medicine. 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 She wasreferred to [facility] to attempt weight reduction through diet and exercise that may prevent further fatty infiltration that may further impairher liver function. [facility] hepatology discussed liver transplant but sheis likely no longer a candidate for this given active myeloma. We chose least hepatotoxic regimen for treatment of her active myeloma with 50% dose reduction of Velcade. Liver function remained stable since start of therapy 04/10/2020. --Requested prior liver biopsy and [facility] liver clinic records. (5) Encounter for antineoplastic immunotherapy Tolerating Daratumumab maintenance well without significant toxicities. Bone marrow biopsy did not reveal indication for change in therapy. She may require additional palliative radiation if no clearetiology found by orthopedic surgeryfor her increased right hip/femur pain. --09/04/2021: Repeat loading with weekly Daratumumab 16mg first 3 cycles and changed to Revlimid 5mgdaily 1-21 each 28 day cycle--plan to change to pomalidomide next cycle. (6) History of 2019 novel coronavirus disease (COVID-19) Patient had coronavirus infection encouraged her to complete vaccinations with booster. When she iscompleted all coronavirus vaccination with booster, she may be eligible for antivirals Evasheld (tixagevimab IM and cilgavimab IM) for passive immunity of coronavirus 19 infection. - Chemo Plan Chemo Plan (Dose, Rate, Freq): Palliative radiation to 02/07/2020, deferred active therapy for myeloma for 8 weeks due to current COVID-19 epidemic. Discussed at [facility] early March to determine optimal regimen given her comorbidities. --04/10/2020: cycle 1, day 1 weekly dexamethasone 20 mg IV (careful to watch bloodsugars with diabetes and known hepatic dysfunction), decreased dose of bortezomib 0.7 mg/m? twice weekly for 2 weeks on1 week off (decreased to once weekly after first cycle due to known liver disease and thrombocytopenia), and daratumumab 8mg/kg D1,D2 IV first week, then 16 mg/kg IV weekly --10/02/2020: Started Daratumumab monthly maintenance 16mg/kg IV (stopped Velcade and Dexamethasone) --Palliative radiation 07/31/2021 right hip --09/04/2021: Start weekly Daratumumab 16mg first 3 cycles and change to Revlimid 5mg daily 1-21 each 28 day cycle--now 5mg daily D1-14 every 28 days--titrate as tolerated, Goal of Treatment: Palliative - Time with Patient Time Spent with Patient (Follow Up Visit): 35 minutes - Moderate complexity to review symptoms after change in therapy to loading doses of daratumumab/Revlimid Coordination of Care & Counseling Time: Greater than 50% of time spent with patient was for coordination of care (as documented) and [id number] counseling of patient and/or family. Dictated By: Fabiola Marinelli MD DD/ [id number] Signed By: <Electronically signed by MD Fabiola Marinelli> 01/22/22 [facility] Work Phone: [phone]) 701-928902-16-2022 Progress note Author Fabiola Marinelli [facility] December 18, 2021 3:22pmNote Date/TimeFebruary 2021 8:49[facility] at [address] [address] Hem/Onc Follow Up Note - OP Signed Patient: Mojgan Pérez MR#: [id number] : 1955 Acct:[id number] Age/Sex: 66 / F Type: REG RCR Copies to: MD Yinka Downey MD Ehsan Malek, MD~ Subjective Date/Time of Service: Date of Service: 12/18/2021 Time of Service: 08:48 Chief Complaint: Patient is here today for follow up visit for multiple myeloma.She is here today to go over labs and bone osseous survey HPI: 12/18/2021: Mojgan is here for 3-month follow-up. She has not had any significant changes in medical history other than testing positive for coronavirus infection in early November 2021. She has not been immunized for coronavirus. She notes persistent fatigue but no bone pain. No other recent infections or bleeding episodes. She recently changed from weekly to now every 2 weeks daratumumab 16 mg/kg and remains on low-dose lenalidomide 5 mg daily for2 weeks on 1 week off due to prior thrombocytopenia worsening. October 2021 skeletal survey showed no osteolytic lesions suggestive of myeloma. Initially she had improvement of her platelets to 70-100,000 but today platelets are down to 54,000. She also had some improvement of leukopenia but this is again down to 2800 with ANC 1300 today. Urinerandom M spike is not observed, but she has had progressive increase of her lambda light chains from 30 in December 2020 to 60.2 in October 2021. [place] lambda ratio has also started to decline to 0.21 in October 2021. For now I'm continuing her daratumumab with Revlimid at current dosing, but I contacted Dr. Benavidez at [facility] for CAR-T celleligibility. If he has recommendations to change her therapy, I will let her know. Otherwise I will have her follow-up with me in 1 month (she will have repeat myeloma labs 1 week prior to visit). 09/20/2021: After telephone consultation with Dr. Benavidez at , we resumed repeat loading doses of weekly daratumumab 16mg/kg and changed to low dose lenalidomide 5mg daily. She has had 2 courses of antibiotics for sinus infection over the past month and was noted to have neutropenia with ANC 900, platelets 44,000 week 2 of Revlimid, therefore this was held for one week and resumed Thursday after ANC returned to 1000. Platelet counts have persisted at 40-50,000 range without active bleeding. Otherwise tolerating therapy well. Still improved hip pain and ambulation after recent course of palliative radiation therapy. For now we will continue Daratumumab with Revlimid and Dexamethasone as ordered with weekly CBC. Gradually increasing lambda light chains--pending evaluation at for CAR-T celltherapy eligibility (has not yetbeen contacted for appointment). 4 week f/u with me with CBC, CMP, and myeloma labs (follow quant immunoglobulins and [place]/Lambda light chain ratio with skeletal survey in 2 weeks so results available for appointment). 08/30/2021: Mojgan is here for 2-week follow-up for completion of her palliative radiation therapywith significant improvement of pain in her right hip and pelvis. We sent her for echocardiogram performed 08/23/2021 at [facility] [place] as baseline for possible Kyprolis therapy. This returned with ejection fraction 60% which is normal with grade 1 left ventricular diastolic dysfunction and 1+ tricuspid valve regurgitation and trace to 1+ aortic valve regurgitation.Otherwise unremarkable. I discussed her case with Dr. Benavidez of malignant hematology at [facility]. He advised against Kyprolis therapy given her underlying liver dysfunction and recommended repeating loading doses of daratumumab weekly as well as low-dose lenalidomide which we will start at 5 mg daily since she has chronic thrombocytopenia. We will send for CAR-T therapy as a possible therapeutic option. The patient agreed with changing daratumumab to weekly and we will haveher sign consent next week for change to low-dose lenalidomide therapy. Next follow-up with me will be in about 2 weeks for week 2 lenalidomide with daratumumab. 08/16/2021: One month followup, she recently completed palliative radiation therapy to right hip and pelvis. Platelet count still in 50,000 range with increased bruising but no bleeding. Still has some pain in right hip but slowlyimproving after radiation therapy. Slowly worsening lambda light chain --she is scheduled for ECHO next week. We discussed possibly changing therapy from Daratumumab, Velcade, Dexamethasone to Kyprolis, low dose lenalidomide, dexamethasone if adequate cardiac function. I will discuss this with Dr. Benavidez for dosing and determine if CAR-T therapy is another possible option (although we may be limited due to chronic thrombocytopenia and liver disease). Followup 2-3 weeks to review results and possible consent for change in therapy. 07/17/2021: 2-month follow-up on multiple myeloma. She reports that Thursday she developed severe painin the right leg that started proximal to the knee creating it to the hip. She had increased pain with weightbearing on the right and has been using a walker at home secondary to this. She did not feel a pop or shift in ambulation, but has been using her Percocet for pain control at home. In reviewing her laboratories platelet count remains in the 52,000 range and she is otherwisPe tolerating daratumumab well. I recommended sending for right hip, femur, and knee plain film imaging that did not show any fracture. She does have a gradually rising lambda light chain but no other significant changes in her labs. I reviewed her case with Dr. Chegn of orthopedic surgery who also reviewed her prior PET/CT showing uptake in this area. We will obtain a right hip MRI, keep her completely nonweightbearing on the right leg with walker for transfers and she has an urgent orthopedic follow-up following her MRI. I will follow-up with her in 1 month to review management and we will determine if she requires prophylactic kenton for stability of the hip based on herMRI. 05/24/2021: Here to followup 05/03/2021 bone marrow biopsy--noted to have decreased cellularity 25%, flow cytometry with 0.2% plasma cells and a 1.5% monoclonal B- cell population. FISH showed 13q and 1qabnormalities but normal cytogenetics. No myelodysplasia seen. I reassured her that recent thrombocytopenia is more likely related to splenic sequestration from liver disease and not worsening myeloma. For now continue current regimen. Will alsorecheck B12, folate, and iron profile with next labs--followup in 2 months with myeloma labs, sooner prn. 04/24/2021: 1 month followup to review PET/CT. Over the past 2 days, she notes episodes of sharp left sided neck pain over sternocleidomastoid muscle and mastoid area. No radiculopathy down left upperextremity. No new side effects of Daratumumab. F18 PET/CT shows largely unchanged diffuse uptake through multiple bony sites in axial and articular skeleton. Lambda light chains risingover past 2 month and decline of platelet count to 57,000 without bleeding. MRIof thoracic spine did not show significant thoracic canal stenosis. Due to worsening neck pain with extensive uptake on F18 PET/CT--we will send for cervical MRI. Palliative medicine has increased Percocet to tid. We will repeat bone marrow biopsy due to rising lambda light chain and falling platelet count to determine if progression of myeloma noted. This will be scheduled in the next 1-2 weeks. 03/28/2021: 2 month followup for multiple myeloma. More recently notes neck andleft shoulder pain. Fatigue and constipation stable. Labs show stable anemia and thrombocytopenia. Serum M-spike now asymmetric gamma (no quantifiable spike). Slowly improving IgG to near normal. [place]/lambda light chain ratio normal with mildly increased lambda light chains. MRI of thoracic spine for evaluation of increasing left shoulder pain. For now we will continue current dosing of Daratumumab and recheck F18 PET/CT for response in late April 2021. 01/21/2021: Mojgan is accompanied by her daughter for 2 month followup--now Daratumumab maintenance. She notes persistent fatigue and recently added as needed laxatives to stool softener for management of constipation. Persistent left hand pain--correlates to an area of bone uptake on PET/CT. Overall F18 PET/CT appears stable with no new areas if FDG avidity (still extensive bone FDGuptake). We reviewed prior plain xrays of left hand from November--she agrees toevaluation by orthopedic surgery (determine if biopsy or steroid injections). M-spike and kappa/lambda light chains pending. CBC (platelets 60-70,000); CMP stable. Will followup in 2 months with exam and labs. 11/26/2020: Mojgan is accompanied by her daughter for 2 month followup--now Daratumumab maintenance. Stable leukopenia/low platelet 70,000. Notes 3 days of hematuria and mild dysuria. Sending UA and possible culture. Otherwise no new bone pain. Blood sugars stable. M-spike and kappa/lambda light chain ratiostable. Next f/u 2 months after one year f/u PET/CT to determine response to therapy. 09/24/2020: Mojgan presents (accompanied by her daughter) for cycle 8, week 2 followup [id number] mg/kg IV weekly, Dexamethasone 20mg weekly, and Velcade 0.7 mg/m? now sq once weekly for every 3-week cycle (21 days). She notes neuropathy symptoms are stable. Tolerating therapy well without fatigue. No bleeding and thrombocytopenia stable in 60-70,0000 range. On 10/02 she will be due for maintenance therapy with Daratumumab alone once per month. I will f/u with her in 2 months with myeloma labs, sooner as needed. Velcade and Dexamethasone will be stopped after 8 cycles. 08/13/2020: Mojgan is here for cycle 6, week 2 (day 14) daratumumab 16 mg/kg weekly, Velcade 0.7 mg/m? now sq once weekly for every 3-week cycle (21 days), and dexamethasone 20 mg weekly. No new symptoms--improving thrombocytopenia to 79,000 and improved leukopenia. 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 Still has improvement of M-spike, IgA normal and decreased lambda light chain and K/L ratio. We discussed that week 25 in Oct she will change to monthly daratumumab with weekly Velcade (1mg/m2) and Dexamethasone. Continue to follow every 6-8 weeks until maintenance schedule. 06/18/2020: Mojgan is here for cycle 3 week 3 (day 21) daratumumab 16 mg/kg weekly, Velcade 0.7 mg/m? now sq once weekly for every 5-week cycle (35 days), and dexamethasone 20 mg weekly. Tolerating well with stable leukopenia and thrombocytopenia. Mild increased symptoms of hand and foot neuropathy, but no limitation in activity. Now following with diabetes management clinic with variable glucosecontrol. We reviewed lower IgA (now M-spike IgG kappa after Daratumumab--previously IgA lambda). Lambda light chain has decreased from 516 to 41.3 to now 18.5 with normalization of K/L ratio. Continue followup myeloma labs in 6 weeks, visit in 8 weeks. 05/21/2020: Mojgan is here for cycle 2 (week 7 overall) daratumumab 16 mg/kg weekly, Velcade 0.7 mg/m? now sq once weekly for every 5-week cycle (35 days), and dexamethasone 20 mg weekly. Tolerating well with stable leukopenia and thrombocytopenia. No significant neuropathy. Noted to have improvement in lambda light chains. No further daratumumab infusion reactions. No infections,stable constipation, pain control improved. No other complaints. Continue monthly f/u with myeloma labs. --Diabetes management--added insulin on dexamethasone days. Hyperglycemia improving. 01/18/2020 (phone followup)--The patient's son was available by phone and her daughter was contactedin a separate phone call as patient presented unaccompanied due to COVID-19 precautions in our clinic during the current epidemic. Bone marrow biopsy results were reviewed as follows from procedure pe rformed 01/26/2020: --Bone marrow biopsy was suboptimal for evaluation. --Increased lambda light chain restricted monoclonal plasma cells (1.9% by flow cytometry, approximately 6% and aspirate count, but 50% by immunohistochemical stains [id number]). Sideroblastic iron present, negative for ring sideroblasts. Peripheral blood smear with mild red blood cell anisocytosis and polychromasia, leukopenia with absolute neutropenia (1000) and thrombocytopenia (54,000) consistent with prior baseline. Note: I discussed the results with Dr. Crook 01/26/2020. Preliminary findings were also discussed with Dr. Cummings 01/27/2020. Morphologic findings, immunohistochemical stains, flow cytometry, and ancillary studies may under represent the extent and severity of disease. The results of FISH myeloma panelwith prognostic markers and cytogenetic analysis are pending. --Given the patient's hip pain and presence of lytic lesions, she meets clinicalcriteria for activemyeloma. Given her hip pain and lytic lesions in weightbearing areas she was offered radiation therapy. She had a limited courseof hypofractionated palliative therapy to bilateral proximal femurs [address] Ahn. We discussed that given the COVID-19 epidemic and absence of othersignificant changes other than bony lesions (normal renal function, normal calcium, stable cytopenias), I would defer active therapy for myeloma for 4 to 6 weeks. Since she has significant history ofliver disease I will discuss her case with Dr. Piter Benavidez at [facility] malignant hematology for optimal regimen. The patient is not a transplant candidate given her nonalcoholic steatohepatitis and chronic thrombocytopenia but may be a candidate for either doublet therapy (Revlimid/dexamethasone) or triplet therapy with either Velcade/Revlimid/dexamethasone or daratumumab/Revlimid/dexamethasone. --02/03/2020: Mojgan presented unaccompanied for follow-up of bone marrow aspiration and biopsy performed by Dr. 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 The patient had been noting increased left hip pain over the past several months andplain films of the pelvis and bilateral femurs did show subtle lucencies in the bilateral proximal femurs corresponding to PET/CT findings but no other additional sclerotic lesions identified. No pathologic fractures were seen. --03/05/2020: Mojgan notes improvement of bilateral hip pain since radiation. No other changes in medical history in the past month--no infections, normal renal function, no hypercalcemia. Stable platelet counts without bleeding. Shewas given written literature regarding Dexamethasone, Velcade (thatwould be dose reduced to 0.7mg/m2 twice weekly), weekly Daratumumab and Revlimid, but I will defer decision of which regimen to use until discussion in malignant hematology tumor board. Also referring for infusion port placement prior to initiating therapy. Sign informed consent prior to initiating therapy. --Discussed with Dr. Benavidez who favors Daratumumab combination--will request prior liver biopsy and records from [facility] liver clinic. The patient and her son (by telephone) expressed understanding and will follow- up as directed in 2 weeks for consent and likely start of therapy. --04/02/2020: Mojgan presents after infusion port placement at [facility] by interventional radiology due to platelet count 40,000--she had increased bruising at site post procedure, but this has completely resolved. Her hip painis well controlled since completion of palliative radiation and no newareas of pain. She has previously reviewed information regarding Daratumumab (first dosesplit 8mg/kg IV D1,D2, then if well tolerated 16mg/kg IV weekly), Velcade at about 50% dose (for liver dysfunction) 0.7mg/m2 D1,D4,D8, D11, and [id number] IV weekly--repeat for every 3 week cycles 1st 3 cycles. She will take chemo class and likely start therapy within 2 weeks with toxicity visit in 3 weeks. Today we reviewed chemotherapy counseling for Daratumumab, Velcade, and Dexamethasone. Common toxicities were reviewed to include infusion reaction including rash/dyspnea/wheezing, myelosuppression, fatigue, nausea, vomiting, constipation, diarrhea, mouth sores, and alopecia. Other toxicities may in cludepneumonitis, neurologic, thromboembolism, hyperglycemia, hepatic and renal toxicities. The patient signed informed consent and will follow-up as directed. --04/19/2020: Mojgan is here for cycle 1 week 2 daratumumab 16 mg/kg weekly, Velcade 0.7 mg/m? twice weekly for first 2 weeks of every 3-week cycle, and dexamethasone 20 mg weekly. She did have an infusion reaction with first daratumumab with dyspnea and flushing but this improved after first dose and shehas not had recurrent infusion reactions. We have continued Velcade despite platelet counts in the 40,000 range without bleeding as we know that her baseline platelet counts remain in this range and she has not had any significant change from her baseline. Dexamethasone has caused hyperglycemia with blood sugars up to 400 and we are referring to diabetes management clinic. Otherwise she denies any significant nausea, emesis, fever, chills, night sweats, constipation, diarrhea, rash, mouthsores, or alopecia. She has not hadany change of baseline neuropathy. Liver function tests remain stable. She notes that her hip pain is well controlled since prior palliative radiation and she saw radiation oncology earlier this week with no new recommendations. I will send her myeloma labs including serum and urine protein electrophoresis, quantitative immunoglobulins, and serum kappa/lambda light chains in 2 weeks andfollow-up with her in 3 weeks. She may be seen sooner if new issues arise. --- This is a 66-year-old lady on chronic disability has a history of arthritis, diabetes mellitus, hypertension, COPD, GERD, and fibromyalgia [facility]. She states that she was followed with Dr. Kumari prior to his senior care and was told that she had an elevated protein level as well as thrombocytopenia but never had clinical bleeding. She is 4 para4 without complicationsand was never told that she was thrombocytopenic while . She is had multiple prior surgicalprocedures without any clinical bleeding. She had been recommended for a pain procedure with Dr. Wilson but he declined to do the procedure because her platelet count was less than 100,000. For this reason she received 2 platelet transfusions, with little improvement of her platelet count and her second transfusion resulted in throat tightening due to allergy to platelets . She has never beentreated with steroids and has never been told that she has immune thrombocytopenia. She has mild leukopenia with relative neutropenia, absolute neutrophil count of 400-800 and mild lymphocytosis. Hemoglobin is normal. She has not had any bright red blood per rectum or epistaxis. She has no history ofbleeding within the family however does have a mother and sister diagnosed with colon cancer, a brother diagnosed with lung cancer, and another sister diagnosedwith breast cancer. She had prior pain in the right hand mainly at the first MCP joint with some associated swelling and right foot pain and was evaluated by podiatry. She was told that her blood tests were negative forgout. She had screening with MALLORY, CCP, and rheumatoid factor all of which were negative. She says that she previously saw Dr. Petersen for cirrhosis but did not know of any specific therapy. We reviewed these findings from her liver ultrasound ordered by Dr. Benavidez Summer 2016. Initial consultation with me March 16, 2017. --The patient has been followed by me for some time for diagnosis of smoldering myeloma with a prior bone marrow biopsy May 2017 showing 15% plasma cells but the patient remained asymptomatic without bone pain or other CRAB criteria for therapy. She is also noted to have an ascending aortic aneurysm and has chronicliver disease with cirrhosis secondary to nonalcoholic steatohepatitis. She haschronic thrombocytopenia without bleeding ranging from 50-100,000 this is felt to be due to sequestration from her nonalcoholic steatohepatitis. She was previously on a liver transplant list but was recently notified that she is no longer a candidate for liver transplant. She has had chronic pain from f ibromyalgia but noted increasing bilateral hip and upper thigh pain over the last 6 months. She also is followed for EGD/colonoscopy with last documented procedure 09/21/2018: 1. Normal EGD, 2. Mild sigmoid diverticulosis, 3. Internal hemorrhoids, grade 2, 4. Anal fissure with active bleeding cauterized by bipolar cautery Bone osseous survey in June 2019 showed osteopenia and degenerative changes but no lytic or blastic lesion. Patient had an F-18 PET scan 01/02/2020 which showed multiple areas of involvementof bones with increased SUV activity. She was contacted with these results by phone and I recommended bone marrow aspirate and biopsy for assessment and analysis. Her prior labs were reviewed. Her SPEP does not show anymonoclonal gammopathy. On VAHID there appears to be a trace of monoclonal gammopathy. Free light chain ratio is less than 100. There is no evidence of renal sufficiency. Patient is not anemic. She doeshave some abnormal areas on bone scan. - Summary of Therapies Summary of Therapies: 1. 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 2. She underwent a single dose of palliative radiation therapy to bilateral hips, receiving 800 cGyto right and left hip in 1 fraction in separate vaz (with a single isocenter). The treatments were given with AP/PA vaz [id number] MV photons and MLC blocks. 3. Deferred active therapy for myeloma 2 months given COVID-19 epidemic with increased risk of myelosuppression and viral transmission of contacts. --Follow-up 03/05/2020 I discussed her case with Dr. Piter Benavidez at malignant hematology. --Given her significant hepatic dysfunction, I presented her case at malignant hematology tumor board to discuss optimal therapy. 4. Cycle 1 day 1 04/10/2020: Dose reduced Velcade 0.7 mg/m? twice weekly (day 1,day 4, day 8, day 11)every 3 weeks with dexamethasone 20 mg weekly and daratumumab 16 mg/kg weekly of each 21-day cycle.After first week, Velcade decreased to 0.7mg sq weekly due to thrombocytopenia. --We will need to watch liver function, platelet count, and neuropathy closely on Velcade. 5. Cycle 9 day 1 10/02/2020: Daratumumab 16mg/kg once monthly maintenance therapy until progression. 6. 07/31/2021: Palliative radiation therapy to right supra chondral/soft tissuearea of hip which is PET positive. She received a dose of 3000 cGy in 10 fractions from 07/31/2021 to 08/15/2021 over 15 elapsed days 7. 08/30/2021: Right hip pain improved after radiation. Due to disease progression with persistent cytopenias, changed to repeat loading doses of daratumumab 16 mg/kg weekly for cycles 1 through 3 with Revlimid 5 mg daily for 3 weeks on 1 week off. Held Revlimid second week due to neutropenia with sinus infection, resumed 3 days ago (09/17/2021). Referred for CAR-T therapy evaluation. 8. 12/18/2021: Daratumumab is now 16 mg/kg every 2 weeks with Revlimid 5 mg daily for 2 weeks on 2 weeks off due to neutropenia and thrombocytopenia. Stillpending evaluation for CAR-T therapy. ROS Details: All systems reviewed & no additional complaints except as documented Subjective/ROS - Narrative: Constitutional: No Chills, No Diaphoresis, Stable Fatigue, No Fever, No Malaise, No Night Sweats, No Weakness, No Weight Gain, No Weight Loss Gastrointestinal: No Abdominal Pain, No Black Stool, No Bloating, No Bloody Stool, No Constipation,No Diarrhea, No Dysphagia, No Hematemesis, No Nausea, NoPostprandial Pain, No Rectal Bleeding, No Rectal Pain, No Vomiting, Other (chronic gastroesophageal reflux stable) --No jaundice or ascites but patient has longstanding nonalcoholic steatohepatitis with cirrhosis, previously followed by [facility] gastroenterology. Cardiovascular: No Chest Pain, No Edema, No Palpitations, No Syncope Genitourinary: No Discharge, No Dysuria, No Flank Pain, Frequency (chronic andunchanged), Resolved Hematuria, No Incontinence, No Nocturia, No Urgency, No Urinary Retention Musculoskeletal: + left shoulder and neck pain as per HPI (no thoracic cord compression, but sending for cervical MRI). Improvement of prior bilateral hip/thigh pain since radiation; positive for intermittent lumbar back pain, No Chest Wall Tenderness, Improvement of prior Joint Pain, Muscle Stiffness, Myalgia (history of fibromyalgia), --unremarkable skeletal survey June 2019. 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 12/2020: F-18 PET/CT stable. 04/2021 F-18 PET/CT stable. Right hip pain mildly improved after palliative radiation. HEENT: No Blurred Vision, No Discharge, No Ear Pain, No Epistaxis, No Rhinorrhea, No Sore Throat--patient was seen in emergency department November 2019 with persistent epistaxis. She was treated withnasal clip and packing andwas advised to continue Afrin. No recurrent bleeding. 2 courses of antibio ticsin Aug-Sep 2021 for recurrent sinusitis Respiratory: No Cough, No Hemoptysis, mild Shortness of Breath (chronic and unchanged due to COPD),No Sputum, No Wheezing--shortness of breath with daratumumab reaction dose 1 04/10/2020 (given a split dose over 2 days). No recurrent reaction since first dose. Neurological: No Dizziness, Stable Numbness/Tingling (reports long-standing bilateral foot numbness--unchanged since starting low-dose Velcade 04/10/2020), NoPre-existing Deficit (no history of stroke or seizure), intermittent headache Hematologic/Lymphatic: No significant bleeding thrombocytopenia from sequestration/myeloma disease,Bruises Easily, No Enlarged Lymph Nodes, Other (reports allergy to prior platelet transfusion) Endocrine: Excessive Sweating (hot flashes, postmenopausal) Flushing, No Intolerance to Cold, Intolerance to Heat Psychiatric: No Depressed Mood, No Insomnia Integumentary: No Jaundice, No Lesions, No Rash Allergic/Immunology: No Pruritus PMFSH - History Attestation statement: The following information was validated with the patient. Source: Old Records Reviewed - Medical History Medical History: Medical History (Last Reviewed 12/18/21 @ 14:49 by Fabiola Marinelli MD) Aortic aneurysm COPD (chronic obstructive pulmonary disease) Diabetes Fibromyalgia GERD (gastroesophageal reflux disease) Hypertension Iron deficiency Multiple myeloma Neutropenia Smoldering multiple myeloma (SMM) Smoldering myeloma Temporary low platelet count - Surgical History Surgical History: Surgical History (Last Reviewed 12/18/21 @ 14:49 by Fabiola Marinelli MD) H/O: hysterectomy History of appendectomy History of cholecystectomy - Social History Smoking Status: Former smoker Tobacco Type: cigarettes Substance Use Type: None Social History Comments: Lives with son sharonda bustos Home Medications & Allergies Allergies erythromycin base [From E-Mycin] Allergy (Verified 12/18/21 08:44) Hives latex Allergy (Verified 12/18/21 08:44) Unknown Reaction moxifloxacin [From Avelox] Allergy (Verified 12/18/21 08:44) Hives Quinolones Allergy (Verified 12/18/21 08:44) Unknown Reaction tetracycline Allergy (Verified 12/18/21 08:44) Unknown Reaction Home Medications carvedilol 12.5 mg tablet 12.5 mg PO BID 11/20/17 [History Confirmed 12/18/21] duloxetine 60 mg capsule,delayed release 60 mg PO DAILY 11/20/17 [History Confirmed 12/18/21] insulin detemir U-100 100 unit/mL (3 mL) subcutaneous pen 26 units SUB-Q QHS 11/20/17 [History Confirmed 12/18/21] oxycodone 10 mg tablet 10 mg PO TID PRN 11/20/17 [History Confirmed 12/18/21] albuterol sulfate 90 mcg/actuation aerosol inhaler 2 puff INHALATION Q6H PRN 11/24/17 [History Confirmed 12/18/21] fluticasone 250 mcg-salmeterol 50 mcg/dose blistr powdr for inhalation (Advair Diskus) 1 inh INHALATION Q12H PRN 11/24/17 [History Confirmed 12/18/21] omeprazole magnesium 20 mg tablet,delayed release (Prilosec OTC) 40 mg PO DAILY 11/24/17 [History Confirmed 12/18/21] cholecalciferol (vitamin D3) 25 mcg (1,000 unit) capsule (Vitamin D3) 1,000 unitPO DAILY 04/13/19 [History Confirmed 12/18/21] metformin 500 mg tablet,extended release 24 hr 500 mg PO BID 03/05/20 [History Confirmed 12/18/21] ondansetron HCl 8 mg tablet (Zofran) 8 mg PO TID PRN #30 tab 04/02/20 [Rx Confirmed 12/18/21] insulin NPH isoph U-100 human 100 unit/mL subcutaneous suspension (Novolin N NPHU-100 Insulin isophane) 20 unit SUBCUT DIRECTED 05/21/20 [History Confirmed 12/18/21] nystatin 100,000 unit/mL oral suspension 100,000 unit BUCCAL DAILY 90 Days #500 ml 06/18/20 [Rx Confirmed 12/18/21] semaglutide (Ozempic) 0.5 mg SUBCUT QWEEK 09/24/20 [History Confirmed 12/18/21] cyanocobalamin (vitamin B-12) 5,000 mcg capsule 5,000 mcg PO QWEEK 10/29/20 [History Confirmed 12/18/21] azithromycin 250 mg tablet (Zithromax Z-Emiliano) 250 mg PO DAILY 11/26/20 [History Confirmed 12/18/21] vitamin B12 0.5 mg-folic acid 1 mg tablet 1 tab PO DAILY 03/28/21 [History Confirmed 12/18/21] acyclovir 400 mg tablet 400 mg PO BID 90 Days #180 tab 07/03/21 [Rx Confirmed 12/18/21] diazepam 5 mg tablet (Valium) 5 mg PO DIRECTED 1 Days #2 tab 07/17/21 [Rx Confirmed 12/18/21] gabapentin 300 mg tablet 600 mg PO TID 07/26/21 [History Confirmed 12/18/21] ondansetron 8 mg disintegrating tablet 8 mg PO Q8H PRN #30 tab 10/22/21 [Rx Confirmed 12/18/21] lenalidomide 5 mg capsule (Revlimid) 5 mg PO DAILY #14 cap 11/20/21 [Rx Confirmed 12/18/21] potassium chloride 10 mEq capsule,extended release 10 meq PO DAILY #30 cap 11/27/21 [Rx Confirmed 12/18/21] dexamethasone 4 mg tablet 20 mg PO ONCE 90 Days #60 tab 12/18/21 [Rx] Objective - Height/Weight Height/Weight: Height 5 ft 2.99 in Weight 85.729 kg BSA for Today's Weight 1.96 - Vital Signs Vital Signs: 12/18/21 08:45 Temperature 98.0 F Pulse Rate [Left Brachial] 84 Respiratory Rate 20 Blood Pressure [Right Arm] 137/84 02 Sat by Pulse Oximetry 97 - Pain Generalized Pain Intensity: 3 Bilateral Hip Pain Intensity: 5 Left Hip Pain Intensity: 4 Lower Back Pain Intensity: 7 Left Neck Pain Intensity: 4 Back Pain Intensity: 0 Right Thigh Pain Intensity: 3 Bilateral Leg Pain Intensity: 5 Bilateral Shoulder Pain Intensity: 6 Left index finger Pain Intensity: 4 - Distress Screening Distress Screen Results: RN Distress Screening Start: 02/07/20 10:17 Freq: Status: Complete Protocol: Document 05/01/20 09:33 DB (Rec: 05/01/20 09:33 DB [id number]) Distress Screening Distress Score: 0 No worry/distress Distress Screening Total 0 RN Distress Screening Start: 07/26/21 12:37 Freq: Status: Active Protocol: Document 07/26/21 13:20 DB (Rec: 07/26/21 13:20 DB [id number]) Distress Screening Distress Score: 2 Physical Concerns Pain Distress Screening Total 2 Physical Exam Narrative: Patient is alert and oriented x3. HEAD / FACE: Normocephalic. No tenderness to palpation over scalp, no sinus tenderness to palpation. EYES: Pupils are equal and reactive to light. Conjunctivae and lids are benign in appearance. Ocular movement intact. EARS: Hearing grossly intact. NOSE / MOUTH / THROAT: Nose, mouth, tongue and oropharynx exam without visible lesion. NECK / THYROID: Neck is with moderate limitation of range of motion--tenderness over left sternocleidomastoid and mastoid bone. No cervical adenopathy on exam. Thyroid is symmetrical, without thyromegaly, masses or palpable nodules. LYMPHATIC: No palpable cervical, supraclavicular, axillary, or inguinal adenopathy. RESPIRATORY: Normal inspection. Lungs clear to auscultation and percussion. No wheezing, rales, rhonchi or rubs. Normal effort. Right chest wall infusion portwithout erythema. CARDIOVASCULAR: Regular rate and rhythm. No murmurs, gallops, or rubs. VASCULAR: Carotid, radial, femoral and pedal pulses present bilaterally. No bruits. ABDOMEN: Bowel sounds normoactive. Soft, nontender and non-distended. No hepatosplenomegaly. No masses. GENITOURINARY: No CVA tenderness. No suprapubic fullness or tenderness. No groinadenopathy. No evidence of hernias. INTEGUMENTARY: The skin is unremarkable. No rashes. No suspicious lesions. No bruising or petechiaenoted. BACK / SPINE: Mild tenderness cervical/upper thoracic spine without step off deformity. No lumbar tenderness. MUSCULOSKELETAL: Normal musculature, normal ROM upper and lower extremities, no crepitus. EXTREMITIES: Trace bilateral leg edema--improving. No cyanosis or clubbing. No Destini sign. NEUROLOGICAL: Alert and oriented. Cranial nerves intact. No gross motor or sensory deficits, patient ambulates unassisted. PSYCHIATRIC: No anxiety or evidence of depression. - ECOG Performance Status ECOG Score: 1 Results - Labs Labs: Diagram of Most Recent CBC and CMP 12/17/21 15:50 12/17/21 15:50 Labs - Last 7 Days 12/17/21 15:50: PHA Creatinine Clear 138.05, Sodium 139, Potassium 3.6, [id number], Carbon Iipdlbd74.9, BUN 8 L, Creatinine 0.42 L, Est GFR ( Amer) > 60, Est GFR (Non-Af Amer) > 60, Glucose 110 H, Calcium 8.9, Total Bilirubin 1.1,AST 24, ALT 21, Alkaline Phosphatase 89, Total Protein5.2 L, Albumin 3.2, Globulin 2.0, Albumin/Globulin Ratio 1.6 12/17/21 15:50: Corrected WBC 2.8 L, Uncorrected WBC Count 2.8 L, RBC 3.74, Hgb 12.6, Hct 37.0, MCV98.9, MCH 33.6, MCHC 34.0, RDW 17.0 H, Plt Count 54 L, MPV 8.2, Neut % (Auto) 44.3, Lymph % (Auto) 45.3, Hodgeman % (Auto) 6.6, Eos % (Auto) 3.6, Baso % (Auto) 0.2, Neut # (Auto) 1.3 L, Lymph # (Auto) 1.3, Hodgeman # (Auto) 0.2, Eos # (Auto) 0.1, Baso # (Auto) 0.0, Nucleated RBC % (auto) 0.4 - Impressions METASTATIC BONE SURVEY - 19 images COMPARISON: 07/01/2019 CLINICAL DATA: Restaging of multiple myeloma. Headache and neck pain. AP and lateral views of the skull and spine were obtained along with AP images of the ribs, pelvis and all 4 extremities. There is osteopenia. No developing lytic or blastic bone lesions are identified.No fractures or dislocation are seen. There are degenerative changes at the spine. In the cervical region, there is endplate spurring and facet hypertrophy.The thoracic spine shows slight dextroscoliotic curvature and en dplate spurring.The lumbar spine shows endplate spurring and facet hypertrophy. Degenerative changes are again noted at the knees, shoulders and inferior SI joints. Atherosclerotic disease is visualized. There are no acute intrathoracic or abdominal findings. Patient has a right-sided Hetfcv-v-Tnteqohxuing. XR/XR bone survey IMPRESSION: NO OSTEOLYTIC LESIONS SUGGESTIVE OF MULTIPLE MYELOMA. Impression dictated by: Tracey aBh M.D.10/04/2021 2:43 PM Date of Service: 11/07/21 XR/XR chest 2V*: cough;COPD exacerbation;COVID-19 Copies to: Yinka Lopez MD~ PA AND LATERAL CHEST: CLINICAL HISTORY: Covid posited with shortness of breath cough and fatigue. COMPARISON: Chest 04/18/2019 FINDINGS: Right-sided port is identified with its tip in the SVC. Heart is normal in size.Lungs are clear. Nofree air. Osseous structures demonstrate degenerative change. XR/XR chest 2V* IMPRESSION: NO ACUTE CARDIOPULMONARY ABNORMALITY. Impression dictated by: Carroll Sparrow Jr. D.OErna11/07/2021 2:46 PM Assessment and Plan - TNM Staging Staging: Stage IIIA Multiple Myeloma (Durie Boring criteria) (1) Multiple myeloma Qualifiers: Multiple myeloma remission status: not in remission Qualified Code(s): C90.00 - Multiple myeloma not having achieved remission Mojgan 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 She has high risk cytogenetics and I [facility] Her persistent thrombocytopenia made her ineligible for any clinical trials, and preventedher from receiving local pain procedures given her chronic low back pain. --05/2017 PET/CT images and reports performed for staging to exclude bone involvement with myeloma. 2 indeterminate areas of uptake thought to be degenerative arthritis vs early bone findings of myeloma (right parietooccipital area and upper sternum). She has remained asymptomatic in these areas andwe arranged repeat PET/CT at 6 months with CBC, CMP, SPEP and UPEP with immunofixation, serum kappa/lambda light chain analysis, and quantitative immunoglobulins. --No lytic lesion seen on f/u PET/CT 11/2017 and all labs stable. Also had head CT to evaluate for mastoiditis in 03/2018 unremarkable. 05/2018 skeletal survey showed no lytic lesions and she has stableshoulder, hand, and right SI joint pain (although likely due to fibromyalgia. --Prior osseous survey 07/01/2019 showed osteopenia but no compression fractures or lytic lesions were identified. She had no significant change in myeloma labs(mild increase of urine M-spike, kappa/lambda ratio, and normal serum M- spike and quant immunoglobulins). Urine protein still undetectable, therefore will continue surveillance every 6 months with the same labs--no hypercalcemia, renaldysfunction (or proteinuria), anemia, or new bone symptoms. [...] proteins with urine M spike 43.1 but totalprotein 34.4, with no reported urine creatinine. --We deferred immunosuppressive chemotherapy for about 1 month due to control ofsymptoms after palliative radiation and concern of potential peak of COVID-19 inlate January early March. --She presented for follow-up 03/05/2020 and we discussed potential therapy options (with son available by phone). --I discussed her case with Dr. Piter Benavidez of malignant hematology, possibly presenting the patient in hematology tumor board at [facility]. --Infusion port placed 03/22/2020 at [facility] due to low platelets. No complications. --03/12/2020: Myeloma labs with no serum M-spike, + urine M spike 22.2mg/24h (14%). Immunofixation IgA lambda specificity. IgA normal 227, Serum kappa 20.6, serum lambda 516.7, Free kappa/lambda ratio0.04. Normal renal function and calcium. Lower ANC 600 and platelets 40,000 --04/10/2020: Started cycle 1 day 1 of weekly dexamethasone 20 mg IV (careful to watch blood sugars with diabetes and known hepatic dysfunction), decreased dose of bortezomib 0.7 mg/m? twice weekly for2 weeks on 1 week off (due to known liver disease and thrombocytopenia), and daratumumab 8mg/kg D1,D2 IV first week, then 16 mg/kg IV weekly and we may consider Revlimid as a 4th medication if needed(deferred for worsening neutropenia and thrombocytopenia--I am reluctant to add this therapy initially). --She has baseline cirrhosis with chronic thrombocytopenia and I am attempting to treat her with the least myelosuppressive regimen after 2 month deferral of therapy due to COVID-19 pandemic noted above. Patient does not have any currentsigns or symptoms of infection. On Acyclovir 400mg bid for VZV prophylaxis. --We requested prior liver biopsy from [facility] for review of the extentof her known liver dysfunction. It is doubtful she will be a high-dose chemotherapy/peripheral blood stem cell transplant candidate given her history of cirrhosis and chronic cytopenias. --04/19/2020 toxicity follow-up: Other than daratumumab reaction with cycle 1 day1 and hyperglycemiasecondary to dexamethasone, she has not had any other new toxicities of therapy thrombocytopenia remains in the 40,000 range without bleeding and we will continue treating with 50% dose Velcade as long as she doesnot have worsening hepatic function, thrombocytopenia, or neuropathy. I am sending herto diabetes management clinic for her hyperglycemia to adjust her insulin regimen (patient has previously discussed this with her primary physician who agrees). --05/21/2020: Tolerating weekly daratumumab, bortezomib, dexamethasone well. Diabetes management improving. Thrombocytopenia stable in 50,000 range without bleeding. --05/03/2020: Myeloma labs with no serum M-spike (not performed), + urine M spike now resolved. Immunofixation IgA lambda specificity. IgA normal 112, Serum kappa 7.8, serum lambda 41.3, Free kappa/lambda ratio 0.19 (improved). Normal renal function and calcium. Mildly improved ANC 900 and platelets 54,000 --06/18/2020: No new symptoms on weekly daratumumab, bortezomib, dexamethasone after dose reductionsof bortezomib for cytopenias and neuropathy. Myeloma labs show lower IgA 72. M-spike IgG kappa after Daratumumab--previously IgA lambda. Lambda light chain has decreased from 516 to 41.3 to now 18.5 with normalizationof K/L ratio. --08/13/2020: Improving thrombocytopenia (79,000) and decreasing M-spike, IgA and lambda light chain. Next myeloma f/u with labs in 6 weeks, sooner prn. --09/24/2020: Now completing cycle 8 Daratumumab/Velcade/Dexamethasone with decreased M-spike, low IgA and normalization of lambda light chain. Platelets stable at 60-70,000 without bleeding. With cycle 9 onward 10/02/2020, she will maintain once monthly Daratumumab only (stop Velcade and Dexamethasone). F/u every 2 months. --11/26/2020: Stable M-spike and K/L ratio on Daratumumab maintenance. Restaging F-18 PET/CT orderedfor 12/2020 and will review at next f/u. No signs/symptoms of infection rather than recent hematuria/dysuria--sending UA andCx if indicated. Leukopenia and thrombocytopenia relatively stable on current therapy. --01/21/2021: One year f/u F18 PET/CT with stable FDG avidity, monoclonal labs (SPEP, Quant Igs, kappa/lambda ratio) all pending. Stable CBC and CMP. Persistent pain left hand 2nd MCP joint--increaseduptake on PET/CT but no lesion on left hand xray from 11/2020. Sending for ortho evaluation. For nowcontinue once monthly Daratumumab. F/u with myeloma labs and exam in 2 months, sooner prn. --03/28/2021: 2 month followup visit--worsening neck/upper back/shoulder pain. Ordered thoracic spine MRI and will contact patient with results. Otherwise stable CBC, CMP and slowly improved monoclonal gammopathy (rising IgG to now normal). Next PET/CT F18 scheduled late April and I will f/u at that time. --04/24/2021: 1 month followup--no spinal stenosis on thoracic MRI and stable PET/CT bony uptake. Now worsening left sternocleidomastoid pain. Sending for cervical MRI and setting up bone marrow biopsy in the next 1-2 weeks due to declining platelets and rising lambda light chains past 2 visits. 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 Hypocellular with recent worseningplatelets without bleeding--will recheck B12, folate, and ferritin. [...] sent for plain films of the hip femurand knee showing degenerative changes but no acute [...] progression although she still has slow rise inlambda light chain and platelet count remains in the 50,000 range. She has increased bruising but no bleeding. For now we will continue daratumumab and follow closely in 6 weeks with monoclonal gammopathy labs and to review recommendations from orthopedic surgery. --08/16/2021: Pain improved after radiation but she has persistent thrombocytopenia and rising lambda light chain. She will have Echo next week and we gave her information regarding Kyprolis therapy.She will return in 2 weeks to discuss possible start of Kyprolis, lenolidamide, dexamethasone therapy. She agrees with this plan. --08/30/2021: Improvement of prior right hip pain [...] check. She will sign Revlimid consent Thursday. Sheis in agreement with this plan. --09/20/2021: Started daratumumab loading doses weekly with Revlimid on 09/04/2021. Held therapy forANC 900 and platelet 42,000 with sinus infection, now resolved and resumed Revlimid 5mg daily on 09/17. Will continue therapy as prescribed with weekly CBC and hold Revlimid as needed for cytopenias.Evaluation for CAR-T therapy at [facility]. Send myeloma labs and skeletal survey in 2 weeks, f/u with me in 4 weeks. She agrees with this plan. --12/18/2020: Mojgan is now on every 2-week dosing of daratumumab with Revlimid 5 mg daily 2 weeks on 2 weeks off. No new symptoms but Dr. Ann at [facility] was updated to mild worsening leukopenia and thrombocytopenia (today 54,000) and gradual increase light chain analysis. We are continuing current dosing of daratumumab with Revlimid and awaiting CAR-T cell therapy. He will contactme if there is any patient change therapy. Next follow-up with me with myeloma labs in 1 month This is a moderate complexity visit over 35 minutes for review of symptoms afterchange in therapy, cytopenias, referral for CAR-T therapy evaluation. 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 I previously reviewed her outpatient records from [facility], including review of notes, laboratories, and prior bone marrow biopsy 13 years ago. 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 Most recent platelet count is relatively stable at 54,000 but no clinical bleeding. She waspreviously referred to weight reduction clinic and may have slow improvement of steatohepatitis with lifestyle modification. Unless she has active bleeding or planned surgery, we will continue observation during treatment of active myelomato commence next month as noted above. --Agree with recommendation for EGD surveillance for varices (last was 09/2018--negative). This will be deferred during current COVID-19 epidemic. --Prior vitamin B12 and folic acid are normal, for known history of neuropathy. As noted above, I reviewed the negative M spike on serum protein electrophoresiswith immunofixation, but positive for Bence Murray protein on urine protein electrophoresis. Her Quantitative immunoglobulins IgG, IgA, and I gM were all within normal limits, however her serum kappa lambda light chain analysis showeda predominance of lambda light chains. --Previous labs for lupus anticoagulant with DRVVT, hexagonal phase phospholipid, anti-cardiolipin IgG and IgA, and beta 2 glycoprotein IgG and IgA were within normal limits. --Evaluated in ED November 2019 for epistaxis which resolved. Platelet count wasstable at 12/28/2019 follow-up. She continues surveillance with liver clinic at [facility] and I will continue to follow her every 6 months, sooner if newbleeding issues arise. --04/02/2020: We reviewed informed consent for Daratumumab/Velcade/Dexamethasone for active myeloma therapy. I requested prior liver biopsy results and notes from liver clinic at [facility]. Platelet count in 40,000 range but patient has had no active bleeding following infusion port placement 03/22/2020. --08/13/2020: Cycle 6 week 2 toxicity check with improved thrombocytopenia 79,000 range with no bleeding. We will continue current dosing with Velcade 0.7mg/m2 sq (now once weekly), dexamethasone 20 mg weekly, and full dose daratumumab with close follow-up of liver function and platelet counts. --09/24/2020, 01/21/2021, 03/28/2021: Platelets stable 60-70,000 with no new toxicities, started Daratumumab maintenance 10/02/2020. --04/24/2021: Platelets now down to 57,000 with rising lambda light chains. Will eval with repeat bone marrow biopsy due to nonsecretory myeloma. --05/24/2021: Bone marrow hypocellular without significant myeloma progression. Normal B12/folate stores, continue Daratumumab maintenance. --08/16/2021: Persistent thrombocytopenia in 50,000 range, consider change in therapy due to risinglambda light chains. Will check echo and review case withDrErna Caylacatracho at to discuss next line of therapy. --08/30/2021: Stable platelets--decision to resume weekly Daratumumab 16mg first 3 cycles and change to Revlimid 5mg daily 1-21 each 28 day cycle--titrate as tolerated --09/20/2021: Platelets have declined to 40-50,000 range without mucosal bleeding. Held Revlimid atplatelets 42,000 during sinus infection, resumed after one week off. Will follow weekly CBCs on Daratumumab/Revlimid. --2021: Platelets still in the 50,000 range without mucosal bleeding. Current dosing of daratumumab every 2 weeks and Revlimid 5 mg daily 2 weeks on 2weeks off. Next f/u one month. (3) Cancer-related pain Improved symptoms after palliative radiation to bilateral hips--one dose 02/07/2020. Will continue tofollow on myeloma chemotherapy. Extensive, but stable bone involvement on F-18 PET/CT 12/2020 and 04/2021. Recent increased leftneck and shoulder pain. Increased oxycodone dosing to three times daily, no unusual right hip pain is noted above--followed by palliative medicine. -Now has completed right hip radiation with persistent but improved pain. Will continue to follow with palliative medicine. 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 She wasreferred to [facility] to attempt weight reduction through diet and exercise that may prevent further fatty infiltration that may further impairher liver function. [facility] hepatology discussed liver transplant but sheis likely no longer a candidate for this given active myeloma. We chose least hepatotoxic regimen for treatment of her active myeloma with 50% dose reduction of Velcade. Liver function remained stable since start of therapy 04/10/2020. --Requested prior liver biopsy and [facility] liver clinic records. (5) Encounter for antineoplastic immunotherapy Tolerating Daratumumab maintenance well without significant toxicities. Bone marrow biopsy did not reveal indication for change in therapy. She may require additional palliative radiation if no clearetiology found by orthopedic surgeryfor her increased right hip/femur pain. --: Repeat loading with weekly Daratumumab 16mg first 3 cycles and changed to Revlimid 5mgdaily 1-21 each 28 day cycle--titrate as tolerated, (6) History of 2019 novel coronavirus disease (COVID-19) Patient had coronavirus infection encouraged her to complete vaccinations with booster. When she iscompleted all coronavirus vaccination with booster, she may be eligible for antivirals Evasheld (tixagevimab IM and cilgavimab IM) for passive immunity of coronavirus 19 infection. - Chemo Plan Chemo Plan (Dose, Rate, Freq): Palliative radiation to 02/07/2020, deferred active therapy for myeloma for 8 weeks due to current COVID-19 epidemic. Discussed at Malignant Hematology Tumor Board early March to determine optimal regimen given her comorbidities. --04/10/2020: cycle 1, day 1 weekly dexamethasone 20 mg IV (careful to watch bloodsugars with diabetes and known hepatic dysfunction), decreased dose of bortezomib 0.7 mg/m? twice weekly for 2 weeks on1 week off (decreased to once weekly after first cycle due to known liver disease and thrombocytopenia), and daratumumab 8mg/kg D1,D2 IV first week, then 16 mg/kg IV weekly --10/02/2020: Started Daratumumab monthly maintenance 16mg/kg IV (stopped Velcade and Dexamethasone) --Palliative radiation 07/31/2021 right hip --09/04/2021: Start weekly Daratumumab 16mg first 3 cycles and change to Revlimid 5mg daily 1-21 each 28 day cycle--now 5mg daily D1-14 every 28 days--titrate as tolerated, Goal of Treatment: Palliative - Time with Patient Time Spent with Patient (Follow Up Visit): 35 minutes - Moderate complexity to review symptoms after change in therapy to loading doses of daratumumab/Revlimid Coordination of Care & Counseling Time: Greater than 50% of time spent with patient was for coordination of care (as documented) and [id number] counseling of patient and/or family. Dictated By: Fabiola Marinelli MD DD/ [id number] Signed By: <Electronically signed by MD Fabiola Marinelli> 12/18/21 [address] [facility] Work Phone: 1(350) 726-725711-20-2021 Progress note Author Fabiola Marinelli [facility] September 21, 2021 11:10amNote Date/TimeNov2020 7:15[facility] [place] [address] Hem/Onc Follow Up Note - OP Signed Patient: Mojgan Pérez MR#: [id number] : 1955 Acct:[id number] Age/Sex: 66 / F Type: REG RCR Copies to: MD Yinka Downey MD Ehsan Malek MD Katie M Gallo, KEITH~ Subjective Date/Time of Service: Date of Service: 09/20/2021 Time of Service: 11:15 Chief Complaint: 4 week follow up- continues with weekly Daratumumab and Lenalidomide- watching blood sugars HPI: 09/20/2021: After telephone consultation with Dr. Benavidez at , we resumed repeat loading doses of weekly daratumumab 16mg/kg and changed to low dose lenalidomide 5mg daily. She has had 2 courses of antibiotics for sinus infection over the past month and was noted to have neutropenia with ANC 900, platelets 44,000 week 2 of Revlimid, therefore this was held for one week and resumed Thursday after ANC returned to 1000. Platelet counts have persisted at 40-50,000 range without active bleeding. Otherwise tolerating therapy well. Still improved hip pain and ambulation after recent course of palliative radiation therapy. For now we will continue Daratumumab with Revlimid and Dexamethasone as ordered with weekly CBC. Gradually increasing lambda light chains--pending evaluation at for CAR-T celltherapy eligibility (has not yetbeen contacted for appointment). 4 week f/u with me with CBC, CMP, and myeloma labs (follow quant immunoglobulins and [place]/Lambda light chain ratio with skeletal survey in 2 weeks so results available for appointment). 08/30/2021: Mojgan is here for 2-week follow-up for completion of her palliative radiation therapywith significant improvement of pain in her right hip and pelvis. We sent her for echocardiogram performed 08/23/2021 at [facility] heart and vascular [place] as baseline for possible Kyprolis therapy. This returned with ejection fraction 60% which is normal with grade 1 left ventricular diastolic dysfunction and 1+ tricuspid valve regurgitation and trace to 1+ aortic valve regurgitation.Otherwise unremarkable. I discussed her case with Dr. Benavidez of malignant hematology at [facility]. He advised against Kyprolis therapy given her underlying liver dysfunction and recommended repeating loading doses of daratumumab weekly as well as low-dose lenalidomide which we will start at 5 mg daily since she has chronic thrombocytopenia. We will send for CAR-T therapy as a possible therapeutic option. The patient agreed with changing daratumumab to weekly and we will haveher sign consent next week for change to low-dose lenalidomide therapy. Next follow-up with me will be in about 2 weeks for week 2 lenalidomide with daratumumab. 08/16/2021: One month followup, she recently completed palliative radiation therapy to right hip and pelvis. Platelet count still in 50,000 range with increased bruising but no bleeding. Still has some pain in right hip but slowlyimproving after radiation therapy. Slowly worsening lambda light chain --she is scheduled for ECHO next week. We discussed possibly changing therapy from Daratumumab, Velcade, Dexamethasone to Kyprolis, low dose lenalidomide, dexamethasone if adequate cardiac function. I will discuss this with Dr. Benavidez for dosing and determine if CAR-T therapy is another possible option (although we may be limited due to chronic thrombocytopenia and liver disease). Followup 2-3 weeks to review results and possible consent for change in therapy. 07/17/2021: 2-month follow-up on multiple myeloma. She reports that Thursday she developed severe painin the right leg that started proximal to the knee creating it to the hip. She had increased pain with weightbearing on the right and has been using a walker at home secondary to this. She did not feel a pop or shift in ambulation, but has been using her Percocet for pain control at home. In reviewing her laboratories platelet count remains in the 52,000 range and she is otherwisPe tolerating daratumumab well. I recommended sending for right hip, femur, and knee plain film imaging that did not show any fracture. She does have a gradually rising lambda light chain but no other significant changes in her labs. I reviewed her case with Dr. Cheng of orthopedic surgery who also reviewed her prior PET/CT showing uptake in this area. We will obtain a right hip MRI, keep her completely nonweightbearing on the right leg with walker for transfers and she has an urgent orthopedic follow-up following her MRI. I will follow-up with her in 1 month to review management and we will determine if she requires prophylactic kenton for stability of the hip based on herMRI. 05/24/2021: Here to followup 05/03/2021 bone marrow biopsy--noted to have decreased cellularity 25%, flow cytometry with 0.2% plasma cells and a 1.5% monoclonal B- cell population. FISH showed 13q and 1qabnormalities but normal cytogenetics. No myelodysplasia seen. I reassured her that recent thrombocytopenia is more likely related to splenic sequestration from liver disease and not worsening myeloma. For now continue current regimen. Will alsorecheck B12, folate, and iron profile with next labs--followup in 2 months with myeloma labs, sooner prn. 04/24/2021: 1 month followup to review PET/CT. Over the past 2 days, she notes episodes of sharp left sided neck pain over sternocleidomastoid muscle and mastoid area. No radiculopathy down left upperextremity. No new side effects of Daratumumab. F18 PET/CT shows largely unchanged diffuse uptake through multiple bony sites in axial and articular skeleton. Lambda light chains risingover past 2 month and decline of platelet count to 57,000 without bleeding. MRIof thoracic spine did not show significant thoracic canal stenosis. Due to worsening neck pain with extensive uptake on F18 PET/CT--we will send for cervical MRI. Palliative medicine has increased Percocet to tid. We will repeat bone marrow biopsy due to rising lambda light chain and falling platelet count to determine if progression of myeloma noted. This will be scheduled in the next 1-2 weeks. 03/28/2021: 2 month followup for multiple myeloma. More recently notes neck andleft shoulder pain. Fatigue and constipation stable. Labs show stable anemia and thrombocytopenia. Serum M-spike now asymmetric gamma (no quantifiable spike). Slowly improving IgG to near normal. [place]/lambda light chain ratio normal with mildly increased lambda light chains. MRI of thoracic spine for evaluation of increasing left shoulder pain. For now we will continue current dosing of Daratumumab and recheck F18 PET/CT for response in late April 2021. 01/21/2021: Mojgan is accompanied by her daughter for 2 month followup--now Daratumumab maintenance. She notes persistent fatigue and recently added as needed laxatives to stool softener for management of constipation. Persistent left hand pain--correlates to an area of bone uptake on PET/CT. Overall F18 PET/CT appears stable with no new areas if FDG avidity (still extensive bone FDGuptake). We reviewed prior plain xrays of left hand from November--she agrees toevaluation by orthopedic surgery (determine if biopsy or steroid injections). M-spike and kappa/lambda light chains pending. CBC (platelets 60-70,000); CMP stable. Will followup in 2 months with exam and labs. 11/26/2020: Mojgan is accompanied by her daughter for 2 month followup--now Daratumumab maintenance. Stable leukopenia/low platelet 70,000. Notes 3 days of hematuria and mild dysuria. Sending UA and possible culture. Otherwise no new bone pain. Blood sugars stable. M-spike and kappa/lambda light chain ratiostable. Next f/u 2 months after one year f/u PET/CT to determine response to therapy. 09/24/2020: Mojgan presents (accompanied by her daughter) for cycle 8, week 2 followup [id number] mg/kg IV weekly, Dexamethasone 20mg weekly, and Velcade 0.7 mg/m? now sq once weekly for every 3-week cycle (21 days). She notes neuropathy symptoms are stable. Tolerating therapy well without fatigue. No bleeding and thrombocytopenia stable in 60-70,0000 range. On 10/02 she will be due for maintenance therapy with Daratumumab alone once per month. I will f/u with her in 2 months with myeloma labs, sooner as needed. Velcade and Dexamethasone will be stopped after 8 cycles. 08/13/2020: Mojgan is here for cycle 6, week 2 (day 14) daratumumab 16 mg/kg weekly, Velcade 0.7 mg/m? now sq once weekly for every 3-week cycle (21 days), and dexamethasone 20 mg weekly. No new symptoms--improving thrombocytopenia to 79,000 and improved leukopenia. 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 Still has improvement of M-spike, IgA normal and decreased lambda light chain and K/L ratio. We discussed that week 25 in Oct she will change to monthly daratumumab with weekly Velcade (1mg/m2) and Dexamethasone. Continue to follow every 6-8 weeks until maintenance schedule. 06/18/2020: Mojgan is here for cycle 3 week 3 (day 21) daratumumab 16 mg/kg weekly, Velcade 0.7 mg/m? now sq once weekly for every 5-week cycle (35 days), and dexamethasone 20 mg weekly. Tolerating well with stable leukopenia and thrombocytopenia. Mild increased symptoms of hand and foot neuropathy, but no limitation in activity. Now following with diabetes management clinic with variable glucosecontrol. We reviewed lower IgA (now M-spike IgG kappa after Daratumumab--previously IgA lambda). Lambda light chain has decreased from 516 to 41.3 to now 18.5 with normalization of K/L ratio. Continue followup myeloma labs in 6 weeks, visit in 8 weeks. 05/21/2020: Mojgan is here for cycle 2 (week 7 overall) daratumumab 16 mg/kg weekly, Velcade 0.7 mg/m? now sq once weekly for every 5-week cycle (35 days), and dexamethasone 20 mg weekly. Tolerating well with stable leukopenia and thrombocytopenia. No significant neuropathy. Noted to have improvement in lambda light chains. No further daratumumab infusion reactions. No infections,stable constipation, pain control improved. No other complaints. Continue monthly f/u with myeloma labs. --Diabetes management--added insulin on dexamethasone days. Hyperglycemia improving. 01/18/2020 (phone followup)--The patient's son was available by phone and her daughter was contactedin a separate phone call as patient presented unaccompanied due to COVID-19 precautions in our clinic during the current epidemic. Bone marrow biopsy results were reviewed as follows from procedure pe rformed 01/26/2020: --Bone marrow biopsy was suboptimal for evaluation. --Increased lambda light chain restricted monoclonal plasma cells (1.9% by flow cytometry, approximately 6% and aspirate count, but 50% by immunohistochemical stains [id number]). Sideroblastic iron present, negative for ring sideroblasts. Peripheral blood smear with mild red blood cell anisocytosis and polychromasia, leukopenia with absolute neutropenia (1000) and thrombocytopenia (54,000) consistent with prior baseline. Note: I discussed the results with Dr. Crook 01/26/2020. Preliminary findings were also discussed with Dr. Cummings 01/27/2020. Morphologic findings, immunohistochemical stains, flow cytometry, and ancillary studies may under represent the extent and severity of disease. The results of FISH myeloma panelwith prognostic markers and cytogenetic analysis are pending. --Given the patient's hip pain and presence of lytic lesions, she meets clinicalcriteria for activemyeloma. Given her hip pain and lytic lesions in weightbearing areas she was offered radiation therapy. She had a limited courseof hypofractionated palliative therapy to bilateral proximal femurs [address] Ahn. We discussed that given the COVID-19 epidemic and absence of othersignificant changes other than bony lesions (normal renal function, normal calcium, stable cytopenias), I would defer active therapy for myeloma for 4 to 6 weeks. Since she has significant history ofliver disease I will discuss her case with Dr. Piter Benavidez at [facility] malignant hematology for optimal regimen. The patient is not a transplant candidate given her nonalcoholic steatohepatitis and chronic thrombocytopenia but may be a candidate for either doublet therapy (Revlimid/dexamethasone) or triplet therapy with either Velcade/Revlimid/dexamethasone or daratumumab/Revlimid/dexamethasone. --02/03/2020: Mojgan presented unaccompanied for follow-up of bone marrow aspiration and biopsy performed by Dr. 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 The patient had been noting increased left hip pain over the past several months andplain films of the pelvis and bilateral femurs did show subtle lucencies in the bilateral proximal femurs corresponding to PET/CT findings but no other additional sclerotic lesions identified. No pathologic fractures were seen. --03/05/2020: Mojgan notes improvement of bilateral hip pain since radiation. No other changes in medical history in the past month--no infections, normal renal function, no hypercalcemia. Stable platelet counts without bleeding. Shewas given written literature regarding Dexamethasone, Velcade (thatwould be dose reduced to 0.7mg/m2 twice weekly), weekly Daratumumab and Revlimid, but I will defer decision of which regimen to use until discussion in malignant hematology tumor board. Also referring for infusion port placement prior to initiating therapy. Sign informed consent prior to initiating therapy. --Discussed with Dr. Benavidez who favors Daratumumab combination--will request prior liver biopsy and records from [facility] liver clinic. The patient and her son (by telephone) expressed understanding and will follow- up as directed in 2 weeks for consent and likely start of therapy. --04/02/2020: Mojgan presents after infusion port placement at [facility] by interventional radiology due to platelet count 40,000--she had increased bruising at site post procedure, but this has completely resolved. Her hip painis well controlled since completion of palliative radiation and no newareas of pain. She has previously reviewed information regarding Daratumumab (first dosesplit 8mg/kg IV D1,D2, then if well tolerated 16mg/kg IV weekly), Velcade at about 50% dose (for liver dysfunction) 0.7mg/m2 D1,D4,D8, D11, and Dexamethasone 20mg IV weekly--repeat for every 3 week cycles 1st 3 cycles. She will take chemo class and likely start therapy within 2 weeks with toxicity visit in 3 weeks. Today we reviewed chemotherapy counseling for Daratumumab, Velcade, and Dexamethasone. Common toxicities were reviewed to include infusion reaction including rash/dyspnea/wheezing, myelosuppression, fatigue, nausea, vomiting, constipation, diarrhea, mouth sores, and alopecia. Other toxicities may in cludepneumonitis, neurologic, thromboembolism, hyperglycemia, hepatic and renal toxicities. The patient signed informed consent and will follow-up as directed. --04/19/2020: Mojgan is here for cycle 1 week 2 daratumumab 16 mg/kg weekly, Velcade 0.7 mg/m? twice weekly for first 2 weeks of every 3-week cycle, and dexamethasone 20 mg weekly. She did have an infusion reaction with first daratumumab with dyspnea and flushing but this improved after first dose and shehas not had recurrent infusion reactions. We have continued Velcade despite platelet counts in the 40,000 range without bleeding as we know that her baseline platelet counts remain in this range and she has not had any significant change from her baseline. Dexamethasone has caused hyperglycemia with blood sugars up to 400 and we are referring to diabetes management clinic. Otherwise she denies any significant nausea, emesis, fever, chills, night sweats, constipation, diarrhea, rash, mouthsores, or alopecia. She has not hadany change of baseline neuropathy. Liver function tests remain stable. She notes that her hip pain is well controlled since prior palliative radiation and she saw radiation oncology earlier this week with no new recommendations. I will send her myeloma labs including serum and urine protein electrophoresis, quantitative immunoglobulins, and serum kappa/lambda light chains in 2 weeks andfollow-up with her in 3 weeks. She may be seen sooner if new issues arise. --------- This is a 66-year-old lady on chronic disability has a history of arthritis, diabetes mellitus, hypertension, COPD, GERD, and fibromyalgia [facility]. She states that she was followed with Dr. Kumari prior to his senior care and was told that she had an elevated protein level as well as thrombocytopenia but never had clinical bleeding. She is 4 para4 without complicationsand was never told that she was thrombocytopenic while . She is had multiple prior surgicalprocedures without any clinical bleeding. She had been recommended for a pain procedure with Dr. Wilson but he declined to do the procedure because her platelet count was less than 100,000. For this reason she received 2 platelet transfusions, with little improvement of her platelet count and her second transfusion resulted in throat tightening due to allergy to platelets . She has never beentreated with steroids and has never been told that she has immune thrombocytopenia. She has mild leukopenia with relative neutropenia, absolute neutrophil count of 400-800 and mild lymphocytosis. Hemoglobin is normal. She has not had any bright red blood per rectum or epistaxis. She has no history ofbleeding within the family however does have a mother and sister diagnosed with colon cancer, a brother diagnosed with lung cancer, and another sister diagnosedwith breast cancer. She had prior pain in the right hand mainly at the first MCP joint with some associated swelling and right foot pain and was evaluated by podiatry. She was told that her blood tests were negative forgout. She had screening with MALLORY, CCP, and rheumatoid factor all of which were negative. She says that she previously saw Dr. Petersen for cirrhosis but did not know of any specific therapy. We reviewed these findings from her liver ultrasound ordered by Dr. Benavidez Summer 2016. Initial consultation with me March 16, 2017. --The patient has been followed by me for some time for diagnosis of smoldering myeloma with a prior bone marrow biopsy May 2017 showing 15% plasma cells but the patient remained asymptomatic without bone pain or other CRAB criteria for therapy. She is also noted to have an ascending aortic aneurysm and has chronicliver disease with cirrhosis secondary to nonalcoholic steatohepatitis. She haschronic thrombocytopenia without bleeding ranging from 50-100,000 this is felt to be due to sequestration from her nonalcoholic steatohepatitis. She was previously on a liver transplant list but was recently notified that she is no longer a candidate for liver transplant. She has had chronic pain from f ibromyalgia but noted increasing bilateral hip and upper thigh pain over the last 6 months. She also is followed for EGD/colonoscopy with last documented procedure 09/21/2018: 1. Normal EGD, 2. Mild sigmoid diverticulosis, 3. Internal hemorrhoids, grade 2, 4. Anal fissure with active bleeding cauterized by bipolar cautery Bone osseous survey in June 2019 showed osteopenia and degenerative changes but no lytic or blastic lesion. Patient had an F-18 PET scan 01/02/2020 which showed multiple areas of involvementof bones with increased SUV activity. She was contacted with these results by phone and I recommended bone marrow aspirate and biopsy for assessment and analysis. Her prior labs were reviewed. Her SPEP does not show anymonoclonal gammopathy. On VAHID there appears to be a trace of monoclonal gammopathy. Free light chain ratio is less than 100. There is no evidence of renal sufficiency. Patient is not anemic. She doeshave some abnormal areas on bone scan. - Summary of Therapies Summary of Therapies: 1. 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 2. She underwent a single dose of palliative radiation therapy to bilateral hips, receiving 800 cGyto right and left hip in 1 fraction in separate vaz (with a single isocenter). The treatments were given with AP/PA vaz [id number] MV photons and MLC blocks. 3. Deferred active therapy for myeloma 2 months given COVID-19 epidemic with increased risk of myelosuppression and viral transmission of contacts. --Follow-up 03/05/2020 I discussed her case with Dr. Piter Benavidez at malignant hematology. --Given her significant hepatic dysfunction, I presented her case at malignant hematology tumor board to discuss optimal therapy. 4. Cycle 1 day 1 04/10/2020: Dose reduced Velcade 0.7 mg/m? twice weekly (day 1,day 4, day 8, day 11)every 3 weeks with dexamethasone 20 mg weekly and daratumumab 16 mg/kg weekly of each 21-day cycle.After first week, Velcade decreased to 0.7mg sq weekly due to thrombocytopenia. --We will need to watch liver function, platelet count, and neuropathy closely on Velcade. 5. Cycle 9 day 1 10/02/2020: Daratumumab 16mg/kg once monthly maintenance therapy until progression. 6. 07/31/2021: Palliative radiation therapy to right supra chondral/soft tissuearea of hip which is PET positive. She received a dose of 3000 cGy in 10 fractions from 07/31/2021 to 08/15/2021 over 15 elapsed days 7. 08/30/2021: Right hip pain improved after radiation. Due to disease progression with persistent cytopenias, changed to repeat loading doses of daratumumab 16 mg/kg weekly for cycles 1 through 3 with Revlimid 5 mg daily for 3 weeks on 1 week off. Held Revlimid second week due to neutropenia with sinus infection, resumed 3 days ago (09/17/2021). Referring for CAR-T therapy evaluation. ROS Details: All systems reviewed & no additional complaints except as documented Subjective/ROS - Narrative: Constitutional: No Chills, No Diaphoresis, Stable Fatigue, No Fever, No Malaise, No Night Sweats, No Weakness, No Weight Gain, No Weight Loss Gastrointestinal: No Abdominal Pain, No Black Stool, No Bloating, No Bloody Stool, No Constipation,No Diarrhea, No Dysphagia, No Hematemesis, No Nausea, NoPostprandial Pain, No Rectal Bleeding, No Rectal Pain, No Vomiting, Other (chronic gastroesophageal reflux stable) --No jaundice or ascites but patient has longstanding nonalcoholic steatohepatitis with cirrhosis, previously followed by [facility] gastroenterology. Cardiovascular: No Chest Pain, No Edema, No Palpitations, No Syncope Genitourinary: No Discharge, No Dysuria, No Flank Pain, Frequency (chronic andunchanged), Resolved Hematuria, No Incontinence, No Nocturia, No Urgency, No Urinary Retention Musculoskeletal: + left shoulder and neck pain as per HPI (no thoracic cord compression, but sending for cervical MRI). Improvement of prior bilateral hip/thigh pain since radiation; positive for intermittent lumbar back pain, No Chest Wall Tenderness, Improvement of prior Joint Pain, Muscle Stiffness, Myalgia (history of fibromyalgia), --unremarkable skeletal survey June 2019. 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 12/2020: F-18 PET/CT stable. 04/2021 F-18 PET/CT stable. Right hip pain mildly improved after palliative radiation. HEENT: No Blurred Vision, No Discharge, No Ear Pain, No Epistaxis, No Rhinorrhea, No Sore Throat--patient was seen in emergency department November 2019 with persistent epistaxis. She was treated withnasal clip and packing andwas advised to continue Afrin. No recurrent bleeding. 2 courses of antibio ticsin Aug-Sep 2021 for recurrent sinusitis Respiratory: No Cough, No Hemoptysis, mild Shortness of Breath (chronic and unchanged due to COPD),No Sputum, No Wheezing--shortness of breath with daratumumab reaction dose 1 04/10/2020 (given a split dose over 2 days). No recurrent reaction since first dose. Neurological: No Dizziness, Stable Numbness/Tingling (reports long-standing bilateral foot numbness--unchanged since starting low-dose Velcade 04/10/2020), No Pre-existing Deficit (no history of strokeor seizure), intermittent headache Hematologic/Lymphatic: No significant bleeding thrombocytopenia from sequestration, Bruises Easily,No Enlarged Lymph Nodes, Other (reports allergyto prior platelet transfusion) Endocrine: Excessive Sweating (hot flashes, postmenopausal) Flushing, No Intolerance to Cold, Intolerance to Heat Psychiatric: No Depressed Mood, No Insomnia Integumentary: No Jaundice, No Lesions, No Rash Allergic/Immunology: No Pruritus PMFSH - History Attestation statement: The following information was validated with the patient. Source: Old Records Reviewed - Medical History Medical History: Medical History (Last Reviewed 09/21/21 @ 10:47 by Fabiola Marinelli MD) Aortic aneurysm COPD (chronic obstructive pulmonary disease) Diabetes Fibromyalgia GERD (gastroesophageal reflux disease) Hypertension Iron deficiency Multiple myeloma Neutropenia Smoldering multiple myeloma (SMM) Smoldering myeloma Temporary low platelet count - Surgical History Surgical History: Surgical History (Last Reviewed 09/21/21 @ 10:47 by Fabiola Marinelli MD) H/O: hysterectomy History of appendectomy History of cholecystectomy - Social History Smoking Status: Former smoker Tobacco Type: cigarettes Substance Use Type: None Social History Comments: [facility] Home Medications & Allergies Allergies erythromycin base [From E-Mycin] Allergy (Verified 09/04/21 12:00) Hives latex Allergy (Verified 09/04/21 12:00) Unknown Reaction moxifloxacin [From Avelox] Allergy (Verified 09/04/21 12:00) Hives Quinolones Allergy (Verified 09/04/21 12:00) Unknown Reaction tetracycline Allergy (Verified 09/04/21 12:00) Unknown Reaction Home Medications carvedilol 12.5 mg tablet 12.5 mg PO BID 11/20/17 [History Confirmed 09/04/21] duloxetine 60 mg capsule,delayed release 60 mg PO DAILY 11/20/17 [History Confirmed 09/04/21] insulin detemir U-100 100 unit/mL (3 mL) subcutaneous pen 26 units SUB-Q QHS 11/20/17 [History Confirmed 09/04/21] oxycodone 10 mg tablet 10 mg PO TID PRN 11/20/17 [History Confirmed 09/04/21] albuterol sulfate 90 mcg/actuation aerosol inhaler 2 puff INHALATION Q6H PRN 11/24/17 [History Confirmed 09/04/21] fluticasone 250 mcg-salmeterol 50 mcg/dose blistr powdr for inhalation (Advair Diskus) 1 inh INHALATION Q12H PRN 11/24/17 [History Confirmed 09/04/21] omeprazole magnesium 20 mg tablet,delayed release (Prilosec OTC) 40 mg PO DAILY 11/24/17 [History Confirmed 09/04/21] cholecalciferol (vitamin D3) 25 mcg (1,000 unit) capsule (Vitamin D3) 1,000 unitPO DAILY 04/13/19 [History Confirmed 09/04/21] metformin 500 mg tablet,extended release 24 hr 500 mg PO BID 03/05/20 [History Confirmed 09/04/21] ondansetron HCl 8 mg tablet (Zofran) 8 mg PO TID PRN #30 tab 04/02/20 [Rx Confirmed 09/04/21] insulin NPH isoph U-100 human 100 unit/mL subcutaneous suspension (Novolin N NPHU-100 Insulin isophane) 20 unit SUBCUT DIRECTED 05/21/20 [History Confirmed 09/04/21] nystatin 100,000 unit/mL oral suspension 100,000 unit BUCCAL DAILY 90 Days #500 ml 06/18/20 [Rx Confirmed 09/04/21] semaglutide (Ozempic) 0.5 mg SUBCUT QWEEK 09/24/20 [History Confirmed 09/04/21] cyanocobalamin (vitamin B-12) 5,000 mcg capsule 5,000 mcg PO QWEEK 10/29/20 [History Confirmed 09/04/21] azithromycin 250 mg tablet (Zithromax Z-Emiliano) 250 mg PO DAILY 11/26/20 [History Confirmed 09/04/21] dexamethasone 4 mg tablet 20 mg PO ONCE 90 Days #60 tab 11/29/20 [Rx Confirmed 09/04/21] vitamin B12 0.5 mg-folic acid 1 mg tablet 1 tab PO DAILY 03/28/21 [History Confirmed 09/04/21] ondansetron 8 mg disintegrating tablet 8 mg PO Q8H PRN #30 tab 06/18/21 [Rx Confirmed 09/04/21] acyclovir 400 mg tablet 400 mg PO BID 90 Days #180 tab 07/03/21 [Rx Confirmed 09/04/21] diazepam 5 mg tablet (Valium) 5 mg PO DIRECTED 1 Days #2 tab 07/17/21 [Rx Confirmed 09/04/21] gabapentin 300 mg tablet 600 mg PO TID 07/26/21 [History Confirmed 09/04/21] lenalidomide 5 mg capsule (Revlimid) 5 mg PO DAILY #21 cap 08/30/21 [Rx Confirmed 09/04/21] lenalidomide 5 mg capsule (Revlimid) See Rx Instructions .ROUTE .COMPLEX 28 Days#21 cap 08/30/21 [Rx Confirmed 09/04/21] potassium chloride 10 mEq capsule,extended release 10 meq PO DAILY #30 cap 08/30/21 [Rx Confirmed 09/04/21] Objective - Height/Weight Height/Weight: Height 5 ft 2.99 in Weight 89.1 kg BSA for Today's Weight 1.97 - Vital Signs Vital Signs: Reviewed--normal temp, HR, BP - Pain Generalized Pain Intensity: 3 Bilateral Hip Pain Intensity: 5 Left Hip Pain Intensity: 4 Lower Back Pain Intensity: 7 Left Neck Pain Intensity: 4 Back Pain Intensity: 0 Right Thigh Pain Intensity: 3 Bilateral Leg Pain Intensity: 5 Bilateral Shoulder Pain Intensity: 6 Left index finger Pain Intensity: 4 - Distress Screening Distress Screen Results: RN Distress Screening Start: 02/07/20 10:17 Freq: Status: Active Protocol: Document 05/01/20 09:33 DB (Rec: 05/01/20 09:33 DB [facility]-[id number]) Distress Screening Distress Score: 0 No worry/distress Distress Screening Total 0 RN Distress Screening Start: 07/26/21 12:37 Freq: Status: Active Protocol: Document 07/26/21 13:20 DB (Rec: 07/26/21 13:20 DB -[id number]) Distress Screening Distress Score: 2 Physical Concerns Pain Distress Screening Total 2 Physical Exam Narrative: Patient is alert and oriented x3. HEAD / FACE: Normocephalic. No tenderness to palpation over scalp, no sinus tenderness to palpation. EYES: Pupils are equal and reactive to light. Conjunctivae and lids are benign in appearance. Ocular movement intact. EARS: Hearing grossly intact. NOSE / MOUTH / THROAT: Nose, mouth, tongue and oropharynx exam without visible lesion. NECK / THYROID: Neck is with moderate limitation of range of motion--tenderness over left sternocleidomastoid and mastoid bone. No cervical adenopathy on exam. Thyroid is symmetrical, without thyromegaly, masses or palpable nodules. LYMPHATIC: No palpable cervical, supraclavicular, axillary, or inguinal adenopathy. RESPIRATORY: Normal inspection. Lungs clear to auscultation and percussion. No wheezing, rales, rhonchi or rubs. Normal effort. Right chest wall infusion portwithout erythema. CARDIOVASCULAR: Regular rate and rhythm. No murmurs, gallops, or rubs. VASCULAR: Carotid, radial, femoral and pedal pulses present bilaterally. No bruits. ABDOMEN: Bowel sounds normoactive. Soft, nontender and non-distended. No hepatosplenomegaly. No masses. GENITOURINARY: No CVA tenderness. No suprapubic fullness or tenderness. No groinadenopathy. No evidence of hernias. INTEGUMENTARY: The skin is unremarkable. No rashes. No suspicious lesions. No bruising or petechiaenoted. BACK / SPINE: Mild tenderness cervical/upper thoracic spine without step off deformity. No lumbar tenderness. MUSCULOSKELETAL: Normal musculature, normal ROM upper and lower extremities, no crepitus. EXTREMITIES: Trace bilateral leg edema--improving. No cyanosis or clubbing. No Destini sign. NEUROLOGICAL: Alert and oriented. Cranial nerves intact. No gross motor or sensory deficits, patient ambulates unassisted. PSYCHIATRIC: No anxiety or evidence of depression. - ECOG Performance Status ECOG Score: 1 Results - Labs Labs: Diagram of Most Recent CBC and CMP 09/17/21 15:36 09/17/21 15:36 Labs - Last 7 Days 09/17/21 15:36: PHA Creatinine Clear 89.75, Sodium 138, Potassium 3.9, Chloride 104, Carbon Gpwmbxf22.9, BUN 13, Creatinine 0.66, Est GFR ( Amer) > 60, Est GFR (Non-Af Amer) > 60, Glucose 156 H, Calcium 8.5, Total Bilirubin 1.1, AST41, ALT 35, Alkaline Phosphatase 88, Total Protein 5.2 L, Albumin 3.3, Globulin 1.9, Albumin/Globulin Ratio 1.7 09/17/21 15:36: Corrected WBC 2.5 L, Uncorrected WBC Count 2.5 L, RBC 3.88, Hgb 12.7, Hct 38.2, MCV98.4, MCH 32.7, MCHC 33.3, RDW 15.1, Plt Count 46 L, MPV 9.0, Neut % (Auto) 72.1, Lymph % (Auto) 21.2, Hodgeman % (Auto) 6.1, Eos % (Auto) 0.4, Baso % (Auto) 0.2, Neut # (Auto) 1.8, Lymph # (Auto) 0.5 L,Hodgeman # (Auto) 0.2, Eos # (Auto) 0.0, Baso # (Auto) 0.0, Nucleated RBC % (auto) 0.3, Platelet Estimate Decreased L, Plt Morphology Comment Normal, RBC Morphology Normal - Impressions f/u skeletal survey ordered to evaluate bone integrity prior to CAR-T assessment Assessment and Plan - TNM Staging Staging: Stage IIIA Multiple Myeloma (Durie Boring criteria) (1) Multiple myeloma Qualifiers: Multiple myeloma remission status: not in remission Qualified Code(s): C90.00 - Multiple myeloma not having achieved remission Mojgan 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 She has high risk cytogenetics and I [facility] Her persistent thrombocytopenia made her ineligible for any clinical trials, and preventedher from receiving local pain procedures given her chronic low back pain. --05/2017 PET/CT images and reports performed for staging to exclude bone involvement with myeloma. 2 indeterminate areas of uptake thought to be degenerative arthritis vs early bone findings of myeloma (right parietooccipitalarea and upper sternum). She has remained asymptomatic [...] showed no lytic lesions and she has stableshoulder, hand, and right SI joint pain (although likely due to fibromyalgia. --Prior osseous survey 07/01/2019 showed osteopenia but no compression fractures or lytic lesions were identified. She had no significant change in myeloma labs(mild increase of urine M-spike, kappa/lambda ratio, and normal serum M- spike and quant immunoglobulins). Urine protein still undetectable, therefore will continue surveillance every 6 months with the same labs--no hypercalcemia, renaldysfunction (or proteinuria), anemia, or new bone symptoms. --Due to COVID-19 epidemic, her 6-month follow-up was performed by telephone encounter 01/18/2020. Due to recurrent headaches and left hip pain we performed a F-18 PET/CT on 01/02/2020 which showed skull, cervical/thoracic/lumbar, and proximal femur lesions. Since I was unavailable Dr. Abel Cummings performed bonemarrow biopsy which although showed a suboptimal specimen, [...] proteins with urine M spike 43.1 but totalprotein 34.4, with no reported urine creatinine. --We deferred immunosuppressive chemotherapy for about 1 month due to control ofsymptoms after palliative radiation and concern of potential peak of COVID-19 inlate January early March. --She presented for follow-up 03/05/2020 and we discussed potential therapy options (with son available by phone). --I discussed her case with Dr. Piter Benavidez of malignant hematology, possibly presenting the patient in hematology tumor board at [facility]. --Infusion port placed 03/22/2020 at [facility] due to low platelets. No complications. --03/12/2020: Myeloma labs with no serum M-spike, + urine M spike 22.2mg/24h (14%). Immunofixation IgA lambda specificity. IgA normal 227, Serum kappa 20.6, serum lambda 516.7, Free kappa/lambda ratio0.04. Normal renal function and calcium. Lower ANC 600 and platelets 40,000 --04/10/2020: Started cycle 1 day 1 of weekly dexamethasone 20 mg IV (careful to watch blood sugars with diabetes and known hepatic dysfunction), decreased dose of bortezomib 0.7 mg/m? twice weekly for2 weeks on 1 week off (due to known liver disease and thrombocytopenia), and daratumumab 8mg/kg D1,D2 IV first week,then 16 mg/kg IV weekly and we may consider Revlimid as a 4th medication if needed (deferred for worsening neutropenia and thrombocytopenia--I am reluctant to add this therapy initially). --She has baseline cirrhosis with chronic thrombocytopenia and I am attempting to treat her with the least myelosuppressive regimen after 2 month deferral of therapy due to COVID-19 pandemic noted above. Patient does not have any currentsigns or symptoms of infection. On Acyclovir 400mg bid for VZV prophylaxis. --We requested prior liver biopsy from [facility] for review of the extentof her known liver dysfunction. It is doubtful she will be a high-dose chemotherapy/peripheral blood stem cell transplant candidate given her history of cirrhosis and chronic cytopenias. --04/19/2020 toxicity follow-up: Other than daratumumab reaction with cycle 1 day1 and hyperglycemiasecondary to dexamethasone, she has not had any other new toxicities of therapy thrombocytopenia remains in the 40,000 range without bleeding and we will continue treating with 50% dose Velcade as long as she doesnot have worsening hepatic function, thrombocytopenia, or neuropathy. I am sending herto diabetes management clinic for her hyperglycemia to adjust her insulin regimen (patient has previously discussed this with her primary physician who agrees). --05/21/2020: Tolerating weekly daratumumab, bortezomib, dexamethasone well. Diabetes management improving. Thrombocytopenia stable in 50,000 range without bleeding. --05/03/2020: Myeloma labs with no serum M-spike (not performed), + urine M spike now resolved. Immunofixation IgA lambda specificity. IgA normal 112, Serum kappa 7.8, serum lambda 41.3, Free kappa/lambda ratio 0.19 (improved). Normal renal function and calcium. Mildly improved ANC 900 and platelets 54,000 --06/18/2020: No new symptoms on weekly daratumumab, bortezomib, dexamethasone after dose reductionsof bortezomib for cytopenias and neuropathy. Myeloma labsshow lower IgA 72. M-spike IgG kappa afterDaratumumab--previously IgA lambda. Lambda light chain has decreased from 516 to 41.3 to now 18.5 with normalizationof K/L ratio. --08/13/2020: Improving thrombocytopenia (79,000) and decreasing M-spike, IgA and lambda light chain. Next myeloma f/u with labs in 6 weeks, sooner prn. --09/24/2020: Now completing cycle 8 Daratumumab/Velcade/Dexamethasone with decreased M-spike, low IgA and normalization of lambda light chain. Platelets stable at 60-70,000 without bleeding. With cycle 9 onward 10/02/2020, she will maintain once monthly Daratumumab only (stop Velcade and Dexamethasone). F/u every 2 months. --11/26/2020: Stable M-spike and K/L ratio on Daratumumab maintenance. Restaging F-18 PET/CT orderedfor 12/2020 and will review at next f/u. No signs/symptoms of infection rather than recent hematuria/dysuria--sending UA andCx if indicated. Leukopenia and thrombocytopenia relatively stable on current therapy. --01/21/2021: One year f/u F18 PET/CT with stable FDG avidity, monoclonal labs (SPEP, Quant Igs, kappa/lambda ratio) all pending. Stable CBC and CMP. Persistent pain left hand 2nd MCP joint--increaseduptake on PET/CT but no lesion on left hand xray from 11/2020. Sending for ortho evaluation. For nowcontinue once monthly Daratumumab. F/u with myeloma labs and exam in 2 months, sooner prn. --03/28/2021: 2 month followup visit--worsening neck/upper back/shoulder pain. Ordered thoracic spine MRI and will contact patient with results. Otherwise stable CBC, CMP and slowly improved monoclonal gammopathy (rising IgG to now normal). Next PET/CT F18 scheduled late April and I will f/u at that time. --04/24/2021: 1 month followup--no spinal stenosis on thoracic MRI and stable PET/CT bony uptake. Now worsening left sternocleidomastoid pain. Sending for cervical MRI and setting up bone marrow biopsy in the next 1-2 weeks due to declining platelets and rising lambda light chains past 2 visits. 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 Hypocellular with recent worseningplatelets without bleeding--will recheck B12, folate, and ferritin. [...] sent for plain films of the hip femurand knee showing degenerative changes but no acute [...] progression although she still has slow rise inlambda light chain and platelet count remains in the 50,000 range. She has increased bruising but no bleeding. For now we will continue daratumumab and follow closely in 6 weeks with monoclonal gammopathy labs and to review recommendations from orthopedic surgery. --08/16/2021: Pain improved after radiation but she has persistent thrombocytopenia and rising lambda light chain. She will have Echo next week and we gave her information regarding Kyprolis therapy.She will return in 2 weeks to discuss possible start of Kyprolis, lenolidamide, dexamethasone therapy. She agrees with this plan. --08/30/2021: Improvement of prior right hip pain [...] check. She will sign Revlimid consent Thursday. Sheis in agreement with this plan. --09/20/2021: Started daratumumab loading doses weekly with Revlimid on 09/04/2021. Held therapy forANC 900 and platelet 42,000 with sinus infection, now resolved and resumed Revlimid 5mg daily on 09/17. Will continue therapy as prescribed with weekly CBC and hold Revlimid as needed for cytopenias.Evaluation for CAR[facility]T therapy at [facility]. Send myeloma labs and skeletal survey in 2 weeks, f/u with me in 4 weeks. She agrees with this plan. This is a moderate complexity visit over 35 minutes for review of symptoms afterchange in therapy, cytopenias, referral for CAR-T therapy evaluation. 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 I previously reviewed her outpatient records from [facility], including review of notes, laboratories, and prior bone marrow biopsy 13 years ago. 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 Most recent platelet count is relatively stable at 54,000 but no clinical bleeding. She was previously referred to weight reduction clinic and may have slow improvement of steatohepatitis with lifestyle modification. Unless she has active bleeding or planned surgery, we will continue observation during treatment of active myelomato commence next month as noted above. --Agree with recommendation for EGD surveillance for varices (last was 09/2018--negative). This will be deferred during current COVID-19 epidemic. --Prior vitamin B12 and folic acid are normal, for known history of neuropathy. As noted above, I reviewed the negative M spike on serum protein electrophoresiswith immunofixation, but positive for Bence Murray protein on urine protein electrophoresis. Her Quantitative immunoglobulins IgG, IgA, and I gM were all within normal limits, however her serum kappa lambda light chain analysis showeda predominance of lambda light chains. --Previous labs for lupus anticoagulant with DRVVT, hexagonal phase phospholipid, anti-cardiolipin IgG and IgA, and beta 2 glycoprotein IgG and IgA were within normal limits. --Evaluated in ED November 2019 for epistaxis which resolved. Platelet count wasstable at 12/28/2019 follow-up. She continues surveillance with liver clinic at [facility] and I will continue to follow her every 6 months, sooner if newbleeding issues arise. --04/02/2020: We reviewed informed consent for Daratumumab/Velcade/Dexamethasone for active myeloma therapy. I requested prior liver biopsy results and notes from liver clinic at [facility]. Platelet count in 40,000 range but patient has had no active bleeding following infusion port placement 03/22/2020. --08/13/2020: Cycle 6 week 2 toxicity check with improved thrombocytopenia 79,000 range with no bleeding. We will continue current dosing with Velcade 0.7mg/m2sq (now once weekly), dexamethasone 20 mg weekly, and full dose daratumumab withclose follow-up of liver function and platelet counts. --09/24/2020, 01/21/2021, 03/28/2021: Platelets stable 60-70,000 with no new toxicities, started Daratumumab maintenance 10/02/2020. --04/24/2021: Platelets now down to 57,000 with rising lambda light chains. Will eval with repeat bone marrow biopsy due to nonsecretory myeloma. --05/24/2021: Bone marrow hypocellular without significant myeloma progression. Normal B12/folate stores, continue Daratumumab maintenance. --08/16/2021: Persistent thrombocytopenia in 50,000 range, consider change in therapy due to risinglambda light chains. Will check echo and review case with Reema at to discuss next line of therapy. --08/30/2021: Stable platelets--decision to resume weekly Daratumumab 16mg first 3 cycles and change to Revlimid 5mg daily 1-21 each 28 day cycle--titrate as tolerated --09/20/2021: Platelets have declined to 40-50,000 range without mucosal bleeding. Held Revlimid atplatelets 42,000 during sinus infection, resumed after one week off. Will follow weekly CBCs on Daratumumab/Revlimid. Next f/u one month. (3) Cancer-related pain Improved symptoms after palliative radiation to bilateral hips--one dose 02/07/2020. Will continue tofollow on myeloma chemotherapy. Extensive, but stable bone involvement on F-18 PET/CT 12/2020 and 04/2021. Recent increased leftneck and shoulder pain. Increased oxycodone dosing to three times daily, no unusual right hip pain is noted above--followed by palliative medicine. -Now has completed right hip radiation with persistent but improved pain. Will continue to follow with palliative medicine. 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 She wasreferred to [facility] to attempt weight reduction through diet and exercise that may prevent further fatty infiltration that may further impairher liver function. [facility] hepatology discussed liver transplant but sheis likely no longer a candidate for this given active myeloma. We chose least hepatotoxic regimen for treatment of her active myeloma with 50% dose reduction of Velcade. Liver function remained stable since start of therapy 04/10/2020. --Requested prior liver biopsy and [facility] liver clinic records. (5) Encounter for antineoplastic immunotherapy Tolerating Daratumumab maintenance well without significant toxicities. Bone marrow biopsy did not reveal indication for change in therapy. She may require additional palliative radiation if no clearetiology found by orthopedic surgeryfor her increased right hip/femur pain. --: Repeat loading with weekly Daratumumab 16mg first 3 cycles and changed to Revlimid 5mgdaily 1-21 each 28 day cycle--titrate as tolerated, - Chemo Plan Chemo Plan (Dose, Rate, Freq): Palliative radiation to 02/07/2020, deferred active therapy for myeloma for 8 weeks due to current COVID-19 epidemic. Discussed at Malignant Hematology Tumor Board early March to determine optimal regimen given her comorbidities. --04/10/2020: cycle 1, day 1 weekly dexamethasone 20 mg IV (careful to watch bloodsugars with diabetes and known hepatic dysfunction), decreased dose of bortezomib 0.7 mg/m? twice weekly for 2 weeks on1 week off (decreased to once weekly after first cycle due to known liver disease and thrombocytopenia), and daratumumab 8mg/kg D1,D2 IV first week, then 16 mg/kg IV weekly --10/02/2020: Started Daratumumab monthly maintenance 16mg/kg IV (stopped Velcade and Dexamethasone) --Palliative radiation 07/31/2021 right hip --09/04/2021: Start weekly Daratumumab 16mg first 3 cycles and change to Revlimid 5mg daily 1-21 each 28 day cycle--titrate as tolerated, Goal of Treatment: Palliative - Time with Patient Time Spent with Patient (Follow Up Visit): 35 minutes - Moderate complexity to review symptoms after change in therapy to loading doses of daratumumab/Revlimid Coordination of Care & Counseling Time: Greater than 50% of time spent with patient was for coordination of care (as documented) and [id number] counseling of patient and/or family. Dictated By: Fabiola Marinelli MD DD/ [id number] Signed By: <Electronically signed by MD Fabiola Marinelli> 09/21/21 1110 [facility] Work Phone: [phone]) 707-777111-19-2021 Progress note Author Silvestre Ahn [facility] September 20, 2021 11:01amNote Date/TimeNovember 2020 10:53[facility] [place] [address] Rad Onc Follow Up Note - OP Signed Patient: Mojgan Pérez MR#: [id number] : 1955 Acct:[id number] Age/Sex: 66 / F Type: REG RCR Copies to: MD Yinka Downey MD~ Subjective - Service Date/Time Date: 09/20/21 Time: 10:52 - Diagnosis Multiple myeloma - Chief Complaint I have no pain in my right hip - History of Present Illness 66-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 Marinelli and she also has non-alcoholic steatohepatitis and pancytopenia (her platelets today are 54,000). She had been seen in the liver clinic and liver transplantation was considered but ultimately, it was felt that she is not a candidate for livertransplant. She was seen earlier this year by Dr. Marinelli after an episode of epistaxis which did notrecur. She did not have any evidence of gingival bleeding, hematuria or rectal bleeding. Patient complainedof deep aches in the left hip and low back pain which had become more pronouncedover last sev eral weeks. Her skeletal survey about 6 months ago had shown pronounced osteopenia and osteoarthritis but because of her increasing pains, Dr. Marinelli ordered a PET/CT scan which was done on 01/02/2020. The PET scan showedmultiple areas of abnormal radiotracer uptake including the calvarium, cervical spine, thoracic spine, lumbar spine and sacrum, there were also focal abnormal areas of radiotracer accumulation within the sternum, pelvis, proximal femurs and distal femoral shafts. Her main complaints were pain in bilateral hips and she received a single dose of 800 cGy to her right and left hip on 02/07/2020. Shehad remarkable improvement in pain and she has [facility] She has continued to receive her systemic therapy under Dr. Marinelli'scare and presented about 6weeks ago with 3 to 4 weeks history of right hip pain. Her PET CT scan in April 2021 had shown increased areas of uptake around the right femoral neck and greater trochanter area. She received additional palliative radiation to her right hip and upper femur areas she is seen today again at Dr. Marinelli's request for additional palliative radiation to her right hip and upper femur area for 2-1/2 weeksand her treatment was completed 1 monthago. She returned today for her first post radiotherapy follow-up and states that she has no pain in the right hip area and she is ambulating without any help. She has no complaints of fever, chills or night sweats, weight loss, headaches, nausea, peripheral lymphadenopathy, cough, hemoptysis, abdominal discomfort, urinary or bowel problems, vaginal bleedingor discharge, leg swelling, motor or sensory changes. She has no fever, chills or night sweats. I've closely reviewed the patient's oncologic, medical, surgical, social, and family history. Changes noted above. I also reviewed the patient's medicationsvia reconciliation, as per the nursing record. - Review of Systems ROS: As per HPI. Objective Height 5 ft 2.99 in Weight 89.1 kg Temp 98.8 F 09/20/21 10:23 Pulse 80 09/20/21 10:23 Resp 20 09/20/21 10:23 BP 102/72 09/20/21 10:23 Pulse Ox 96 09/20/21 10:23 Pain: 0/10 Distress Screen Results: RN Distress Screening Start: 02/07/20 10:17 Freq: Status: Active Protocol: Document 05/01/20 09:33 DB (Rec: 05/01/20 09:33 DB [id number]) Distress Screening Distress Score: 0 No worry/distress Distress Screening Total 0 RN Distress Screening Start: 07/26/21 12:37 Freq: Status: Active Protocol: Document 07/26/21 13:20 DB (Rec: 07/26/21 13:20 DB [id number]) Distress Screening Distress Score: 2 Physical Concerns Pain Distress Screening Total 2 Karnofsky Performance Scale: 90%: Can perform normal activity, minor signs of disease Physical Exam: On further examination today, she is an alert, oriented, pleasant female who is in no acute distress. HEENT examination revealed no cranial neuropathy. No palpable neck lymphadenopathy. Herbreasts were not examined today. Her lungs are clear to auscultation. Cardiac examination is unremarkable. She has no spinal or paraspinal tenderness. Her abdomen is soft and nontender and there is no palpable mass or organomegaly. Pelvic and rectal examination not done. Local examination of right hip area shows mild skin discoloration and dry discrimination within the area of treatment as expected and patient was advised to use Aquaphor ointment locally for additional 1 to 2 weeks or until herskin reaction is completely resolved. Mobility of the right hip has markedly improved and she is ambulating without any help. Left hip motion is normal. She has no leg edema. Her neurological examination including motor, sensory and cerebellar functions are within normal limits. Results CBC & Chem 7: 09/17/21 15:36 09/17/21 15:36 Plkh-7-Vwvxkhslbbmde 1.9 mg/L (0.6-2.4) 12/07/18 16:14 Midqu-7-Ljsvdfeqe 0.3 g/dL (0.0-0.4) 07/05/21 10:50 Vjdac-7-Hvqihnaev 0.6 g/dL (0.4-1.0) 07/05/21 10:50 Beta Globulins 0.8 g/dL (0.7-1.3) 07/05/21 10:50 Impression: Multiple myeloma Assessment & Plan (1) Smoldering multiple myeloma (SMM) Plan: Patient with longstanding history of smoldering multiple myeloma on systemic therapy under Dr. Marinelli's care had palliative treatment to bilateral hips in February 2020 and she received a single dose of 800 cGy to both hip and upper femoral with excellent palliation and relief of her symptoms. She had p resentedrecently with right hip pain and her PET CT scan had shown progression of disease. She received additional palliative radiation to her right hip and upper femur for 2-1/2 weeks and her treatment course completed 1 month ago. Shehad remarkably good response and she has been well palliated. She complains of no pain in the right hip area is ambulatory without any help. Patient is seeing today and will continue her systemic therapy under her care. I shall plan to see her back in 6 months or earlier if needed for additional palliative radiation treatments (on an as-needed basis). Total Time Spent with Patient: Less than 30 minutes I spent 15 minutes alsb-ov-ggpi time in this patient and more than 50% of time allotted to patient education, answering questions, and coordinating care. N.B: Voice-recognition software was used in the creation of this note. Efforts were made to detect and correct typographical and/or grammatical errors;please excuse them should you find any. Dictated By: Silvestre Ahn MD DD/ [id number] Signed By: <Electronically signed by Silvestre Ahn MD> 09/20/21 1101 [facility] Work Phone: [phone]) 192-540310-29-2021 Progress note Author Fabiola Marinelli [facility] August 30, 2021 8:18pmNote Date/TimeOct2020 10:[address] [place] [address] [place] [address] Hem/Onc Follow Up Note - OP Signed Patient: Mojgan Pérez MR#: [id number] : 1955 Acct:[id number] Age/Sex: 65 / F Type: REG RCR Copies to: MD Yinka Downey MD Ehsan Malek, MD Katherine M McGraw, VISUAL MERCHANDISER~ Subjective Date/Time of Service: Date of Service: 08/30/2021 Time of Service: 10:33 Chief Complaint: Patient is here for a 2 week follow up for multiple myeloma. Noconcerns voiced at this time. HPI: 08/30/2021: Mojgan is here for 2-week follow-up for completion of her palliative radiation therapywith significant improvement of pain in her right hip and pelvis. We sent her for echocardiogram performed 08/23/2021 at [facility] heart [facility] vascular [place] as baseline for possible Kyprolis therapy. This returned with ejection fraction 60% which is normal with grade 1 left ventricular diastolic dysfunction and 1+ tricuspid valve regurgitation and trace to 1+ aortic valve regurgitation.Otherwise unremarkable. I discussed her case with Dr. Benavidez of malignant hematology at [facility]. He advised against Kyprolis therapy given her underlying liver dysfunction and recommended repeating loading doses of daratumumab weekly as well as low-dose lenalidomide which we will start at 5 mg daily since she has chronic thrombocytopenia. We will send for CAR-T therapy as a possible therapeutic option. The patient agreed with changing daratumumab to weekly and we will have her sign consent next week for change to low-dose lenalidomide therapy. Next follow-up with me will be in about 2 weeks for week 2 lenalidomide with daratumumab. 08/16/2021: One month followup, she recently completed palliative radiation therapy to right hip and pelvis. Platelet count still in 50,000 range with increased bruising but no bleeding. Still has some pain in right hip but slowlyimproving after radiation therapy. Slowly worsening lambda light chain --she is scheduled for ECHO next week. We discussed possibly changing therapy from Daratumumab, Velcade, Dexamethasone to Kyprolis, low dose lenalidomide, dexamethasone if adequate cardiac function. I will discuss this with Dr. Benavidez for dosing and determine if CAR-T therapy is another possible option (although we may be limited due to chronic thrombocytopenia and liver disease). Followup 2-3 weeks to review results and possible consent for change in therapy. 07/17/2021: 2-month follow-up on multiple myeloma. She reports that Thursday she developed severe painin the right leg that started proximal to the knee creating it to the hip. She had increased pain with weightbearing on the right and has been using a walker at home secondary to this. She did not feel a pop or shift in ambulation, but has been using her Percocet for pain control at home. In reviewing her laboratories platelet count remains in the 52,000 range and she is otherwisPe tolerating daratumumab well. I recommended sending for right hip, femur, and knee plain film imaging that did not show any fracture. She does have a gradually rising lambda light chain but no other significant changes in her labs. I reviewed her case with Dr. Cheng of orthopedic surgery who also reviewed her prior PET/CT showing uptake in this area. We will obtain a right hip MRI, keep her completely nonweightbearing on the right leg with walker for transfers and she has an urgent orthopedic follow-up following her MRI. I will follow-up with her in 1 month to review management and we will determine if she requires prophylactic kenton for stability of the hip based on herMRI. 05/24/2021: Here to followup 05/03/2021 bone marrow biopsy--noted to have decreased cellularity 25%, flow cytometry with 0.2% plasma cells and a 1.5% monoclonal B- cell population. FISH showed 13q and 1qabnormalities but normal cytogenetics. No myelodysplasia seen. I reassured her that recent thrombocytopenia is more likely related to splenic sequestration from liver disease and not worsening myeloma. For now continue current regimen. Will alsorecheck B12, folate, and iron profile with next labs--followup in 2 months with myeloma labs, sooner prn. 04/24/2021: 1 month followup to review PET/CT. Over the past 2 days, she notes episodes of sharp left sided neck pain over sternocleidomastoid muscle and mastoid area. No radiculopathy down left upperextremity. No new side effects of Daratumumab. F18 PET/CT shows largely unchanged diffuse uptake through multiple bony sites in axial and articular skeleton. Lambda light chains risingover past 2 month and decline of platelet count to 57,000 without bleeding. MRIof thoracic spine did not show significant thoracic canal stenosis. Due to worsening neck pain with extensive uptake on F18 PET/CT--we will send for cervical MRI. Palliative medicine has increased Percocet to tid. We will repeat bone marrow biopsy due to rising lambda light chain and falling platelet count to determine if progression of myeloma noted. This will be scheduled in the next 1-2 weeks. 03/28/2021: 2 month followup for multiple myeloma. More recently notes neck andleft shoulder pain. Fatigue and constipation stable. Labs show stable anemia and thrombocytopenia. Serum M-spike now asymmetric gamma (no quantifiable spike). Slowly improving IgG to near normal. [place]/lambda light chain ratio normal with mildly increased lambda light chains. MRI of thoracic spine for evaluation of increasing left shoulder pain. For now we will continue current dosing of Daratumumab and recheck F18 PET/CT for response in late April 2021. 01/21/2021: Mojgan is accompanied by her daughter for 2 month followup--now Daratumumab maintenance. She notes persistent fatigue and recently added as needed laxatives to stool softener for management of constipation. Persistent left hand pain--correlates to an area of bone uptake on PET/CT. Overall F18 PET/CT appears stable with no new areas if FDG avidity (still extensive bone FDGuptake). We reviewed prior plain xrays of left hand from November--she agrees toevaluation by orthopedic surgery (determine if biopsy or steroid injections). M-spike and kappa/lambda light chains pending. CBC (platelets 60-70,000); CMP stable. Will followup in 2 months with exam and labs. 11/26/2020: Mojgan is accompanied by her daughter for 2 month followup--now Daratumumab maintenance. Stable leukopenia/low platelet 70,000. Notes 3 days of hematuria and mild dysuria. Sending UA and possible culture. Otherwise no new bone pain. Blood sugars stable. M-spike and kappa/lambda light chain ratiostable. Next f/u 2 months after one year f/u PET/CT to determine response to therapy. 09/24/2020: Mojgan presents (accompanied by her daughter) for cycle 8, week 2 followup suctjypvhpi15 mg/kg IV weekly, Dexamethasone 20mg weekly, and Velcade 0.7 mg/m? now sq once weekly for every 3-week cycle (21 days). She notes neuropathy symptoms are stable. Tolerating therapy well without fatigue. No bleeding and thrombocytopenia stable in 60-70,0000 range. On 10/02 she will be due for maintenance therapy with Daratumumab alone once per month. I will f/u with her in 2 months with myeloma labs, sooner as needed. Velcade and Dexamethasone will be stopped after 8 cycles. 08/13/2020: Mojgan is here for cycle 6, week 2 (day 14) daratumumab 16 mg/kg weekly, Velcade 0.7 mg/m? now sq once weekly for every 3-week cycle (21 days), and dexamethasone 20 mg weekly. No new symptoms--improving thrombocytopenia to 79,000 and improved leukopenia. 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 Still has improvement of M-spike, IgA normal and decreased lambda light chain and K/L ratio. We discussed that week 25 in Oct she will change to monthly daratumumab with weekly Velcade (1mg/m2) and Dexamethasone. Continue to follow every 6-8 weeks until maintenance schedule. 06/18/2020: Mojgan is here for cycle 3 week 3 (day 21) daratumumab 16 mg/kg weekly, Velcade 0.7 mg/m? now sq once weekly for every 5-week cycle (35 days), and dexamethasone 20 mg weekly. Tolerating well with stable leukopenia and thrombocytopenia. Mild increased symptoms of hand and foot neuropathy, but no limitation in activity. Now following with diabetes management clinic with variable glucosecontrol. We reviewed lower IgA (now M-spike IgG kappa after Daratumumab--previously IgA lambda). Lambda light chain has decreased from 516 to 41.3 to now 18.5 with normalization of K/L ratio. Continue followup myeloma labs in 6 weeks, visit in 8 weeks. 05/21/2020: Mojgan is here for cycle 2 (week 7 overall) daratumumab 16 mg/kg weekly, Velcade 0.7 mg/m? now sq once weekly for every 5-week cycle (35 days), and dexamethasone 20 mg weekly. Tolerating well with stable leukopenia and thrombocytopenia. No significant neuropathy. Noted to have improvement in lambda light chains. No further daratumumab infusion reactions. No infections,stable constipation, pain control improved. No other complaints. Continue monthly f/u with myeloma labs. --Diabetes management--added insulin on dexamethasone days. Hyperglycemia improving. 01/18/2020 (phone followup)--The patient's son was available by phone and her daughter was contactedin a separate phone call as patient presented unaccompanied due to COVID-19 precautions in our clinic during the current epidemic. Bone marrow biopsy results were reviewed as follows from procedure pe rformed 01/26/2020: --Bone marrow biopsy was suboptimal for evaluation. --Increased lambda light chain restricted monoclonal plasma cells (1.9% by flow cytometry, approximately 6% and aspirate count, but 50% by immunohistochemical stains [id number]). Sideroblastic iron present, negative for ring sideroblasts. Peripheral blood smear with mild red blood cell anisocytosis and polychromasia, leukopenia with absolute neutropenia (1000) and thrombocytopenia (54,000) consistent with prior baseline. Note: I discussed the results with Dr. Crook 01/26/2020. Preliminary findings were also discussed with Dr. Cummings 01/27/2020. Morphologic findings, immunohistochemical stains, flow cytometry, and ancillary studies may under represent the extent and severity of disease. The results of FISH myeloma panelwith prognostic markers and cytogenetic analysis are pending. --Given the patient's hip pain and presence of lytic lesions, she meets clinicalcriteria for activemyeloma. Given her hip pain and lytic lesions in weightbearing areas she was offered radiation therapy. She had a limited courseof hypofractionated palliative therapy to bilateral proximal femurs [address] Ahn. We discussed that given the COVID-19 epidemic and absence of othersignificant changes other than bony lesions (normal renal function, normal calcium, stable cytopenias), I would defer active therapy for myeloma for 4 to 6 weeks. Since she has significant history ofliver disease I will discuss her case with Dr. Piter Benavidez at [facility] malignant hematology for optimal regimen. The patient is not a transplant candidate given her nonalcoholic steatohepatitis and chronic thrombocytopenia but may be a candidate for either doublet therapy (Revlimid/dexamethasone) or triplet therapy with either Velcade/Revlimid/dexamethasone or daratumumab/Revlimid/dexamethasone. --02/03/2020: Mojgan presented unaccompanied for follow-up of bone marrow aspiration and biopsy performed by Dr. 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 The patient had been noting increased left hip pain over the past several months andplain films of the pelvis and bilateral femurs did show subtle lucencies in the bilateral proximal femurs corresponding to PET/CT findings but no other additional sclerotic lesions identified. No pathologic fractures were seen. --03/05/2020: Mojgan notes improvement of bilateral hip pain since radiation. No other changes in medical history in the past month--no infections, normal renal function, no hypercalcemia. Stable platelet counts without bleeding. Shewas given written literature regarding Dexamethasone, Velcade (thatwould be dose reduced to 0.7mg/m2 twice weekly), weekly Daratumumab and Revlimid, but I will defer decision of which regimen to use until discussion in malignant hematology tumor board. Also referring for infusion port placement prior to initiating therapy. Sign informed consent prior to initiating therapy. --Discussed with Dr. Benavidez who favors Daratumumab combination--will request prior liver biopsy and records from [facility] liver clinic. The patient and her son (by telephone) expressed understanding and will follow- up as directed in 2 weeks for consent and likely start of therapy. --04/02/2020: Mojgan presents after infusion port placement at [facility] by interventional radiology due to platelet count 40,000--she had increased bruising at site post procedure, but this has completely resolved. Her hip pain is well controlled since completion of palliative radiation and no new areas of pain. She has previously reviewed information regarding Daratumumab (first dosesplit 8mg/kg IV D1,D2, then if well tolerated 16mg/kg IV weekly), Velcade at about 50% dose (for liver dysfunction) 0.7mg/m2 D1,D4,D8, D11, and [id number] IV weekly--repeat for every 3 week cycles 1st 3 cycles. She will take chemo class and likely start therapy within 2 weeks with toxicity visit in 3 weeks. Today we reviewed chemotherapy counseling for Daratumumab, Velcade, and Dexamethasone. Common toxicities were reviewed to include infusion reaction including rash/dyspnea/wheezing, myelosuppression, fatigue, nausea, vomiting, constipation, diarrhea, mouth sores, and alopecia. Other toxicities may in cludepneumonitis, neurologic, thromboembolism, hyperglycemia, hepatic and renal toxicities. The patient signed informed consent and will follow-up as directed. --04/19/2020: Mojgan is here for cycle 1 week 2 daratumumab 16 mg/kg weekly, Velcade 0.7 mg/m? twice weekly for first 2 weeks of every 3-week cycle, and dexamethasone 20 mg weekly. She did have an infusion reaction with first daratumumab with dyspnea and flushing but this improved after first dose and shehas not had recurrent infusion reactions. We have continued Velcade despite platelet counts in the 40,000 range without bleeding as we know that her baseline platelet counts remain in this range and she has not had any significant change from her baseline. Dexamethasone has caused hyperglycemia with blood sugars up to 400 and we are referring to diabetes management clinic. Otherwise she denies any significant nausea, emesis, fever, chills, night sweats, constipation, diarrhea, rash, mouthsores, or alopecia. She has not hadany change of baseline neuropathy. Liver function tests remain stable. She notes that her hip pain is well controlled since prior palliative radiation and she saw radiation oncology earlier this week with no new recommendations. I will send her myeloma labs including serum and urine protein electrophoresis, quantitative immunoglobulins, and serum kappa/lambda light chains in 2 weeks and follow-up with her in 3 weeks. She may be seen sooner if new issues arise. This is a 65-year-old lady on chronic disability has a history of arthritis, diabetes mellitus, hypertension, COPD, GERD, and fibromyalgia who was previously[facility] for chronic mild to moderate thrombocytopenia. She states that she was followed with Dr. Kumari prior to his senior care and was told that she had an elevated protein level as well as thrombocytopenia but never had clinical bleeding. She is 4 para4 without complicationsand was never told that she was thrombocytopenic while . She is had multiple prior surgicalprocedures without any clinical bleeding. She had been recommended for a pain procedure with Dr. Wilson but he declined to do the procedure because her platelet count wasless than 100,000. For this reason she received 2 platelet transfusions, with little improvement of her platelet count and her second transfusion resulted in throat tightening due to allergy to platelets . She has never been treated with steroids and has never been told that she has immune thrombocytopenia. Shehas mild leukopenia with relative neutropenia, absolute neutrophil count of 400-800 and mild lymphocytosis. Hemoglobin is normal. She has not had any bright red blood per rectum or epistaxis. She has no history of bleeding within the family however does have a mother and sister diagnosed with colon cancer, a brother diagnosed with lung cancer, and another sister diagnosed with breast cancer. She had prior pain in the right hand mainly at the first MCP joint with some associated swelling and right foot pain and was evaluated by podiatry. She was told that her blood tests were negative forgout. She had screening with MALLORY, CCP, and rheumatoid factor all of which were negative. She says that she previously saw Dr. Petersen for cirrhosis but did not know of any specific therapy. We reviewed these findings from her liver ultrasound ordered by Dr. Benavidez Summer 2016. Initial consultation with me March 16, 2017. --The patient has been followed by me for some time for diagnosis of smoldering myeloma with a prior bone marrow biopsy May 2017 showing 15% plasma cells but the patient remained asymptomatic without bone pain or other CRAB criteria for therapy. She is also noted to have an ascending aortic aneurysm and has chronicliver disease with cirrhosis secondary to nonalcoholic steatohepatitis. She haschronic thrombocytopenia without bleeding ranging from 50-100,000 this is felt to be due to sequestration from her nonalcoholic steatohepatitis. She was previously on a liver transplant list but was recently notified that she is no longer a candidate for liver transplant. She has had chronic pain from f ibromyalgia but noted increasing bilateral hip and upper thigh pain over the last 6 months. She also is followed for EGD/colonoscopy with last documented procedure 09/21/2018: 1. Normal EGD, 2. Mild sigmoid diverticulosis, 3. Internal hemorrhoids, grade 2, 4. Anal fissure with active bleeding cauterized by bipolar cautery Bone osseous survey in June 2019 showed osteopenia and degenerative changes but no lytic or blastic lesion. Patient had an F-18 PET scan 01/02/2020 which showed multiple areas of involvementof bones with increased SUV activity. She was contacted with these results by phone and I recommended bone marrow aspirate and biopsy for assessment and analysis. Her prior labs were reviewed. Her SPEP does not show anymonoclonal gammopathy. On VAHID there appears to be a trace of monoclonal gammopathy. Free light chain ratio is less than 100. There is no evidence of renal sufficiency. Patient is not anemic. She doeshave some abnormal areas on bone scan. - Summary of Therapies Summary of Therapies: 1. 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 2. She underwent a single dose of palliative radiation therapy to bilateral hips, receiving 800 cGyto right and left hip in 1 fraction in separate vaz (with a single isocenter). The treatments were given with AP/PA vaz [id number] MV photons and MLC blocks. 3. Deferred active therapy for myeloma 2 months given COVID-19 epidemic with increased risk of myelosuppression and viral transmission of contacts. --Follow-up 03/05/2020 I discussed her case with Dr. Piter Benavidez at malignant hematology. --Given her significant hepatic dysfunction, I presented her case at malignant hematology tumor board to discuss optimal therapy. 4. Cycle 1 day 1 04/10/2020: Dose reduced Velcade 0.7 mg/m? twice weekly (day 1,day 4, day 8, day 11)every 3 weeks with dexamethasone 20 mg weekly and daratumumab 16 mg/kg weekly of each 21-day cycle.After first week, Velcade decreased to 0.7mg sq weekly due to thrombocytopenia. --We will need to watch liver function, platelet count, and neuropathy closely on Velcade. 5. Cycle 9 day 1 10/02/2020: Daratumumab 16mg/kg once monthly maintenance therapy until progression. 6. 07/31/2021: Palliative radiation therapy to right supra chondral/soft tissuearea of hip which is PET positive. She received a dose of 3000 cGy in 10 fractions from 07/31/2021 to 08/15/2021 over 15 elapsed days 7. 08/30/2021: Right hip pain improved after radiation. Due to disease progression with persistent cytopenias, changing to repeat loading doses of daratumumab 16 mg/kg weekly for cycles 1 through 3 with Revlimid 5 mg daily for 3 weeks on 1 week off. ROS Details: All systems reviewed & no additional complaints except as documented Subjective/ROS - Narrative: Constitutional: No Chills, No Diaphoresis, Stable Fatigue, No Fever, No Malaise, No Night Sweats, No Weakness, No Weight Gain, No Weight Loss Gastrointestinal: No Abdominal Pain, No Black Stool, No Bloating, No Bloody Stool, No Constipation,No Diarrhea, No Dysphagia, No Hematemesis, No Nausea, NoPostprandial Pain, No Rectal Bleeding, No Rectal Pain, No Vomiting, Other (chronic gastroesophageal reflux stable) --No jaundice or ascites but patient has longstanding nonalcoholic steatohepatitis with cirrhosis, previously followed by [facility] gastroenterology. Cardiovascular: No Chest Pain, No Edema, No Palpitations, No Syncope Genitourinary: No Discharge, No Dysuria, No Flank Pain, Frequency (chronic andunchanged), Resolved Hematuria, No Incontinence, No Nocturia, No Urgency, No Urinary Retention Musculoskeletal: + left shoulder and neck pain as per HPI (no thoracic cord compression, but sending for cervical MRI). Improvement of prior bilateral hip/thigh pain since radiation; positive for intermittent lumbar back pain, No Chest Wall Tenderness, Improvement of prior Joint Pain, Muscle Stiffness, Myalgia (history of fibromyalgia), --unremarkable skeletal survey June 2019. 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 12/2020: F-18 PET/CT stable. 04/2021 F-18 PET/CT stable. Right hip pain mildly improved after palliative radiation. HEENT: No Blurred Vision, No Discharge, No Ear Pain, No Epistaxis, No Rhinorrhea, No Sore Throat--patient was seen in emergency department November 2019 with persistent epistaxis. She was treated withnasal clip and packing andwas advised to continue Afrin. No recurrent bleeding. Respiratory: No Cough, No Hemoptysis, mild Shortness of Breath (chronic and unchanged due to COPD),No Sputum, No Wheezing--shortness of breath with daratumumab reaction dose 1 04/10/2020 (given a split dose over 2 days). No recurrentreaction since first dose. Neurological: No Dizziness, Stable Numbness/Tingling (reports long-standing bilateral foot numbness--unchanged since starting low-dose Velcade 04/10/2020), NoPre-existing Deficit (no history of stroke or seizure), intermittent headache Hematologic/Lymphatic: No significant bleeding thrombocytopenia from sequestration, Bruises Easily,No Enlarged Lymph Nodes, Other (reports allergyto prior platelet transfusion) Endocrine: Excessive Sweating (hot flashes, postmenopausal) Flushing, No Intolerance to Cold, Intolerance to Heat Psychiatric: No Depressed Mood, No Insomnia Integumentary: No Jaundice, No Lesions, No Rash Allergic/Immunology: No Pruritus PMFSH - History Attestation statement: The following information was validated with the patient. Source: Old Records Reviewed - Medical History Medical History: Medical History (Last Reviewed 08/30/21 @ 15:21 by Fabiola Marinelli MD) Aortic aneurysm COPD (chronic obstructive pulmonary disease) Diabetes Fibromyalgia GERD (gastroesophageal reflux disease) Hypertension Iron deficiency Multiple myeloma Neutropenia Smoldering multiple myeloma (SMM) Smoldering myeloma Temporary low platelet count - Surgical History Surgical History: Surgical History (Last Reviewed 08/30/21 @ 15:22 by Fabiola Marinelli MD) H/O: hysterectomy History of appendectomy History of cholecystectomy - Social History Smoking Status: Former smoker Tobacco Type: cigarettes Substance Use Type: None Social History Comments: Lives with son sharonda bustos Home Medications & Allergies Allergies erythromycin base [From E-Mycin] Allergy (Verified 08/30/21 10:02) Hives latex Allergy (Verified 08/30/21 10:02) Unknown Reaction moxifloxacin [From Avelox] Allergy (Verified 08/30/21 10:02) Hives Quinolones Allergy (Verified 08/30/21 10:02) Unknown Reaction tetracycline Allergy (Verified 08/30/21 10:02) Unknown Reaction Home Medications carvedilol 12.5 mg tablet 12.5 mg PO BID 11/20/17 [History Confirmed 08/30/21] duloxetine 60 mg capsule,delayed release 60 mg PO DAILY 11/20/17 [History Confirmed 08/30/21] insulin detemir U-100 100 unit/mL (3 mL) subcutaneous pen 26 units SUB-Q QHS 11/20/17 [History Confirmed 08/30/21] oxycodone 10 mg tablet 10 mg PO TID PRN 11/20/17 [History Confirmed 08/30/21] albuterol sulfate 90 mcg/actuation aerosol inhaler 2 puff INHALATION Q6H PRN 11/24/17 [History Confirmed 08/30/21] fluticasone 250 mcg-salmeterol 50 mcg/dose blistr powdr for inhalation (Advair Diskus) 1 inh INHALATION Q12H PRN 11/24/17 [History Confirmed 08/30/21] omeprazole magnesium 20 mg tablet,delayed release (Prilosec OTC) 40 mg PO DAILY 11/24/17 [History Confirmed 08/30/21] cholecalciferol (vitamin D3) 25 mcg (1,000 unit) capsule (Vitamin D3) 1,000 unitPO DAILY 04/13/19 [History Confirmed 08/30/21] metformin 500 mg tablet,extended release 24 hr 500 mg PO BID 03/05/20 [History Confirmed 08/30/21] ondansetron HCl 8 mg tablet (Zofran) 8 mg PO TID PRN #30 tab 04/02/20 [Rx Confirmed 08/30/21] insulin NPH isoph U-100 human 100 unit/mL subcutaneous suspension (Novolin N NPHU-100 Insulin isophane) 20 unit SUBCUT DIRECTED 05/21/20 [History Confirmed 08/30/21] nystatin 100,000 unit/mL oral suspension 100,000 unit BUCCAL DAILY 90 Days #500 ml 06/18/20 [Rx Confirmed 08/30/21] semaglutide (Ozempic) 0.5 mg SUBCUT QWEEK 09/24/20 [History Confirmed 08/30/21] cyanocobalamin (vitamin B-12) 5,000 mcg capsule 5,000 mcg PO QWEEK 10/29/20 [History Confirmed 08/30/21] azithromycin 250 mg tablet (Zithromax Z-Emiliano) 250 mg PO DAILY 11/26/20 [History Confirmed 08/30/21] dexamethasone 4 mg tablet 20 mg PO ONCE 90 Days #60 tab 11/29/20 [Rx Confirmed 08/30/21] vitamin B12 0.5 mg-folic acid 1 mg tablet 1 tab PO DAILY 03/28/21 [History Confirmed 08/30/21] ondansetron 8 mg disintegrating tablet 8 mg PO Q8H PRN #30 tab 06/18/21 [Rx Confirmed 08/30/21] acyclovir 400 mg tablet 400 mg PO BID 90 Days #180 tab 07/03/21 [Rx Confirmed 08/30/21] diazepam 5 mg tablet (Valium) 5 mg PO DIRECTED 1 Days #2 tab 07/17/21 [Rx Confirmed 08/30/21] gabapentin 300 mg tablet 600 mg PO TID 07/26/21 [History Confirmed 08/30/21] lenalidomide 5 mg capsule (Revlimid) 5 mg PO DAILY #21 cap 08/30/21 [Rx] lenalidomide 5 mg capsule (Revlimid) See Rx Instructions .ROUTE .COMPLEX 28 Days #21 cap 08/30/21 [Rx] potassium chloride 10 mEq capsule,extended release 10 meq PO DAILY #30 cap 08/30/21 [Rx] Objective - Height/Weight Height/Weight: Height 5 ft 2.99 in Weight 87.997 kg BSA for Today's Weight 2.01 - Vital Signs Vital Signs: 08/30/21 10:02 Temperature 97.8 F Pulse Rate [Left Brachial] 87 Respiratory Rate 20 Blood Pressure [Left Arm] 120/74 02 Sat by Pulse Oximetry 96 - Pain Generalized Pain Intensity: 3 Bilateral Hip Pain Intensity: 5 Left Hip Pain Intensity: 4 Lower Back Pain Intensity: 7 Left Neck Pain Intensity: 4 Back Pain Intensity: 0 Right Thigh Pain Intensity: 3 Bilateral Leg Pain Intensity: 5 Bilateral Shoulder Pain Intensity: 6 Left index finger Pain Intensity: 4 - Distress Screening Distress Screen Results: RN Distress Screening Start: 02/07/20 10:17 Freq: Status: Active Protocol: Document 05/01/20 09:33 DB (Rec: 05/01/20 09:33 DB [facility]-[id number]) Distress Screening Distress Score: 0 No worry/distress Distress Screening Total 0 RN Distress Screening Start: 07/26/21 12:37 Freq: Status: Active Protocol: Document 07/26/21 13:20 DB (Rec: 07/26/21 13:20 DB -[id number]) Distress Screening Distress Score: 2 Physical Concerns Pain Distress Screening Total 2 Physical Exam Narrative: Patient is alert and oriented x3. HEAD / FACE: Normocephalic. No tenderness to palpation over scalp, no sinus tenderness to palpation. EYES: Pupils are equal and reactive to light. Conjunctivae and lids are benign in appearance. Ocular movement intact. EARS: Hearing grossly intact. NOSE / MOUTH / THROAT: Nose, mouth, tongue and oropharynx exam without visible lesion. NECK / THYROID: Neck is with moderate limitation of range of motion--tenderness over left sternocleidomastoid and mastoid bone. No cervical adenopathy on exam. Thyroid is symmetrical, without thyromegaly, masses or palpable nodules. LYMPHATIC: No palpable cervical, supraclavicular, axillary, or inguinal adenopathy. RESPIRATORY: Normal inspection. Lungs clear to auscultation and percussion. No wheezing, rales, rhonchi or rubs. Normal effort. Right chest wall infusion portwithout erythema. CARDIOVASCULAR: Regular rate and rhythm. No murmurs, gallops, or rubs. VASCULAR: Carotid, radial, femoral and pedal pulses present bilaterally. No bruits. ABDOMEN: Bowel sounds normoactive. Soft, nontender and non-distended. No hepatosplenomegaly. No masses. GENITOURINARY: No CVA tenderness. No suprapubic fullness or tenderness. No groinadenopathy. No evidence of hernias. INTEGUMENTARY: The skin is unremarkable. No rashes. No suspicious lesions. No bruising or petechiaenoted. BACK / SPINE: Mild tenderness cervical/upper thoracic spine without step off deformity. No lumbar tenderness. MUSCULOSKELETAL: Normal musculature, normal ROM upper and lower extremities, no crepitus. EXTREMITIES: Trace bilateral leg edema--improving. No cyanosis or clubbing. No Destini sign. NEUROLOGICAL: Alert and oriented. Cranial nerves intact. No gross motor or sensory deficits, patient ambulates unassisted. PSYCHIATRIC: No anxiety or evidence of depression. - ECOG Performance Status ECOG Score: 1 Results - Labs Labs: Diagram of Most Recent CBC and CMP 08/06/21 13:50 08/06/21 13:50 - Impressions No new imaging for review. - Other Results Results/Comments: 08/23/2021: Echocardiogram at [facility] [place] as baseline for possible Kyprolis therapy with ejection fraction 60%. grade 1 left ventricular diastolic dysfunction, 1+ tricuspid valve regurgitation and trace to1+ aortic valve regurgitation. Otherwise unremarkable. 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 She has high risk cytogenetics and I [facility] Her persistent thrombocytopenia made her ineligible for any clinical trials, and preventedher from receiving local pain procedures given her chronic low back pain. --05/2017 PET/CT images and reports performed for staging to exclude bone involvement with myeloma. 2 indeterminate areas of uptake thought to be degenerative arthritis vs early bone findings of myeloma (right parietooccipitalarea and upper sternum). She has remained asymptomatic [...] showed no lytic lesions and she has stableshoulder, hand, and right SI joint pain (although likely due to fibromyalgia. --Prior osseous survey 07/01/2019 showed osteopenia but no compression fractures or lytic lesions were identified. She had no significant change in myeloma labs(mild increase of urine M-spike, kappa/lambda ratio, and normal serum M- spike and quant immunoglobulins). Urine protein still undetectable, therefore will continue surveillance every 6 months with the same labs--no hypercalcemia, renaldysfunction (or proteinuria), anemia, or new bone symptoms. [...] proteins with urine M spike 43.1 but totalprotein 34.4, with no reported urine creatinine. --We deferred immunosuppressive chemotherapy for about 1 month due to control ofsymptoms after palliative radiation and concern of potential peak of COVID-19 inlate January early March. --She presented for follow-up 03/05/2020 and we discussed potential therapy options (with son available by phone). --I discussed her case with Dr. Piter Benavidez of malignant hematology, possibly presenting the patient in hematology tumor board at [facility]. --Infusion port placed 03/22/2020 at [facility] due to low platelets. No complications. --03/12/2020: Myeloma labs with no serum M-spike, + urine M spike 22.2mg/24h (14%). Immunofixation IgA lambda specificity. IgA normal 227, Serum kappa 20.6, serum lambda 516.7, Free kappa/lambda ratio0.04. Normal renal function and calcium. Lower ANC 600 and platelets 40,000 --04/10/2020: Started cycle 1 day 1 of weekly dexamethasone 20 mg IV (careful to watch blood sugars with diabetes and known hepatic dysfunction), decreased dose of bortezomib 0.7 mg/m? twice weekly for2 weeks on 1 week off (due to known liver disease and thrombocytopenia), and daratumumab 8mg/kg D1,D2 IV first week,then 16 mg/kg IV weekly and we may consider Revlimid as a 4th medication if needed (deferred for worsening neutropenia and thrombocytopenia--I am reluctant to add this therapy initially). --She has baseline cirrhosis with chronic thrombocytopenia and I am attempting to treat her with the least myelosuppressive regimen after 2 month deferral of therapy due to COVID-19 pandemic noted above. Patient does not have any currentsigns or symptoms of infection. On Acyclovir 400mg bid for VZV prophylaxis. --We requested prior liver biopsy from [facility] for review of the extentof her known liver dysfunction. It is doubtful she will be a high-dose chemotherapy/peripheral blood stem cell transplant candidate given her history of cirrhosis and chronic cytopenias. --04/19/2020 toxicity follow-up: Other than daratumumab reaction with cycle 1 day1 and hyperglycemiasecondary to dexamethasone, she has not had any other new toxicities of therapy thrombocytopenia remains in the 40,000 range without bleeding and we will continue treating with 50% dose Velcade as long as she doesnot have worsening hepatic function, thrombocytopenia, or neuropathy. I am sending her diabetes management clinic for her hyperglycemia to adjust her insulin regimen (patient has previously discussed this with her primary physician who agrees). --05/21/2020: Tolerating weekly daratumumab, bortezomib, dexamethasone well. Diabetes management improving. Thrombocytopenia stable in 50,000 range without bleeding. --05/03/2020: Myeloma labs with no serum M-spike (not performed), + urine M spike now resolved. Immunofixation IgA lambda specificity. IgA normal 112, Serum kappa 7.8, serum lambda 41.3, Free kappa/lambda ratio 0.19 (improved). Normal renal function and calcium. Mildly improved ANC 900 and platelets 54,000 --06/18/2020: No new symptoms on weekly daratumumab, bortezomib, dexamethasone after dose reductionsof bortezomib for cytopenias and neuropathy. Myeloma labsshow lower IgA 72. M-spike IgG kappa afterDaratumumab--previously IgA lambda. Lambda light chain has decreased from 516 to 41.3 to now 18.5 with normalizationof K/L ratio. --08/13/2020: Improving thrombocytopenia (79,000) and decreasing M-spike, IgA and lambda light chain. Next myeloma f/u with labs in 6 weeks, sooner prn. --09/24/2020: Now completing cycle 8 Daratumumab/Velcade/Dexamethasone with decreased M-spike, low IgA and normalization of lambda light chain. Platelets stable at 60-70,000 without bleeding. With cycle 9 onward 10/02/2020, she will maintain once monthly Daratumumab only (stop Velcade and Dexamethasone). F/u every 2 months. --11/26/2020: Stable M-spike and K/L ratio on Daratumumab maintenance. Restaging F-18 PET/CT orderedfor 12/2020 and will review at next f/u. No signs/symptoms of infection rather than recent hematuria/dysuria--sending UA andCx if indicated. Leukopenia and thrombocytopenia relatively stable on current therapy. --01/21/2021: One year f/u F18 PET/CT with stable FDG avidity, monoclonal labs (SPEP, Quant Igs, kappa/lambda ratio) all pending. Stable CBC and CMP. Persistent pain left hand 2nd MCP joint--increaseduptake on PET/CT but no lesion on left hand xray from 11/2020. Sending for ortho evaluation. For nowcontinue once monthly Daratumumab. F/u with myeloma labs and exam in 2 months, sooner prn. --03/28/2021: 2 month followup visit--worsening neck/upper back/shoulder pain. Ordered thoracic spine MRI and will contact patient with results. Otherwise stable CBC, CMP and slowly improved monoclonal gammopathy (rising IgG to now normal). Next PET/CT F18 scheduled late April and I will f/u at that time. --04/24/2021: 1 month followup--no spinal stenosis on thoracic MRI and stable PET/CT bony uptake. Now worsening left sternocleidomastoid pain. Sending for cervical MRI and setting up bone marrow biopsy in the next 1-2 weeks due to declining platelets and rising lambda light chains past 2 visits. 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 Hypocellular with recent worseningplatelets without bleeding--will recheck B12, folate, and ferritin. [...] sent for plain films of the hip femurand knee showing degenerative changes but no acute [...] progression although she still has slow rise inlambda light chain and platelet count remains in the 50,000 range. She has increased bruising but no bleeding. For now we will continue daratumumab and follow closely in 6 weeks with monoclonal gammopathy labs and to review recommendations from orthopedic surgery. --08/16/2021: Pain improved after radiation but she has persistent thrombocytopenia and rising lambda light chain. She will have Echo next week and we gave her information regarding Kyprolis therapy.She will return in 2 weeks to discuss possible start of Kyprolis, lenolidamide, dexamethasone therapy. She agrees with this plan. --08/30/2021: Improvement of prior right hip pain [...] check. She will sign Revlimid consent Thursday. Sheis in agreement with this plan. This is a moderate complexity visit over 25 minutes for review of symptoms afterradiation, labs, Echo, and planned change in therapy. 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 I previously reviewed her outpatient records from [facility], including review of notes, laboratories, and prior bone marrow biopsy 13 years ago. 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 Most recent platelet count is relatively stable at 54,000 but no clinical bleeding. She waspreviously referred to weight reduction clinic and may have slow improvement of steatohepatitis with lifestyle modification. Unless she has active bleeding or planned surgery, we will continue observation during treatment of active myelomato commence next month as noted above. --Agree with recommendation for EGD surveillance for varices (last was 09/2018--negative). This will be deferred during current COVID-19 epidemic. --Prior vitamin B12 and folic acid are normal, for known history of neuropathy. As noted above, I reviewed the negative M spike on serum protein electrophoresiswith immunofixation, but positive for Bence Murray protein on urine protein electrophoresis. Her Quantitative immunoglobulins IgG, IgA, and I gM were all within normal limits, however her serum kappa lambda light chain analysis showeda predominance of lambda light chains. --Previous labs for lupus anticoagulant with DRVVT, hexagonal phase phospholipid, anti-cardiolipin IgG and IgA, and beta 2 glycoprotein IgG and IgA were within normal limits. --Evaluated in ED November 2019 for epistaxis which resolved. Platelet count wasstable at 12/28/2019 follow-up. She continues surveillance with liver clinic at [facility] and I will continue to follow her every 6 months, sooner if newbleeding issues arise. --04/02/2020: We reviewed informed consent for Daratumumab/Velcade/Dexamethasone for active myeloma therapy. I requested prior liver biopsy results and notes from liver clinic at [facility]. Platelet count in 40,000 range but patient has had no active bleeding following infusion port placement 03/22/2020. --08/13/2020: Cycle 6 week 2 toxicity check with improved thrombocytopenia 79,000 range with no bleeding. We will continue current dosing with Velcade 0.7mg/m2 sq (now once weekly), dexamethasone 20 mg weekly, and full dose daratumumab with close follow-up of liver function and platelet counts. --09/24/2020, 01/21/2021, 03/28/2021: Platelets stable 60-70,000 with no new toxicities, started Daratumumab maintenance 10/02/2020. --04/24/2021: Platelets now down to 57,000 with rising lambda light chains. Will eval with repeat bone marrow biopsy due to nonsecretory myeloma. --05/24/2021: Bone marrow hypocellular without significant myeloma progression. Normal B12/folate stores, continue Daratumumab maintenance. --08/16/2021: Persistent thrombocytopenia in 50,000 range, consider change in therapy due to risinglambda light chains. Will check echo and review case withDr. Benavidez at to discuss next line of therapy. --08/30/2021: Stable platelets--decision to resume weekly Daratumumab 16mg first 3 cycles and change to Revlimid 5mg daily 1-21 each 28 day cycle--titrate as tolerated, (3) Cancer-related pain Improved symptoms after palliative radiation to bilateral hips--one dose 02/07/2020. Will continue tofollow on myeloma chemotherapy. Extensive, but stable bone involvement on F-18 PET/CT 12/2020 and 04/2021. Recent increased leftneck and shoulder pain. Increased oxycodone dosing to three times daily, no unusual right hip pain is noted above--followed by palliative medicine. -Now has completed right hip radiation with persistent but improved pain. Will continue to follow with palliative medicine. 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 She wasreferred to [facility] to attempt weight reduction through diet and exercise that may prevent further fatty infiltration that may further impairher liver function. [facility] hepatology discussed liver transplant but sheis likely no longer a candidate for this given active myeloma. We chose least hepatotoxic regimen for treatment of her active myeloma with 50% dose reduction of Velcade. Liver function remained stable since start of therapy 04/10/2020. --Requested prior liver biopsy and [facility] liver clinic records. (5) Encounter for antineoplastic immunotherapy Tolerating Daratumumab maintenance well without significant toxicities. Bone marrow biopsy did not reveal indication for change in therapy. She may require additional palliative radiation if no clearetiology found by orthopedic surgeryfor her increased right hip/femur pain. --08/30/2021: weekly Daratumumab 16mg first 3 cycles and change to Revlimid 5mgdaily 1-21 each 28 day cycle--titrate as tolerated, - Chemo Plan Chemo Plan (Dose, Rate, Freq): Palliative radiation to 02/07/2020, deferred active therapy for myeloma for 8 weeks due to current COVID-19 epidemic. Discussed at Malignant Hematology Tumor Board early March to determine optimal regimen given her comorbidities. --04/10/2020: cycle 1, day 1 weekly dexamethasone 20 mg IV (careful to watch bloodsugars with diabetes and known hepatic dysfunction), decreased dose of bortezomib 0.7 mg/m? twice weekly for 2 weeks on1 week off (decreased to once weekly after first cycle due to known liver disease and thrombocytopenia), and daratumumab 8mg/kg D1,D2 IV first week, then 16 mg/kg IV weekly --10/02/2020: Started Daratumumab monthly maintenance 16mg/kg IV (stopped Velcade and Dexamethasone) --Palliative radiation 07/31/2021 right hip --09/05/2021: Start weekly Daratumumab 16mg first 3 cycles and change to Revlimid 5mg daily 1-21 each 28 day cycle--titrate as tolerated, Goal of Treatment: Palliative - Time with Patient Time Spent with Patient (Follow Up Visit): 25 minutes - Moderate complexity to review symptoms after radiation and discuss change in therapy to daratumumab/Revlimid Coordination of Care & Counseling Time: Greater than 50% of time spent with patient was for coordination of care (as documented) and [id number] counseling of patient and/or family. Dictated By: Fabiola Marinelli MD DD/ [id number] Signed By: <Electronically signed by MD Fabiola Marinelli> 08/30/212017 [facility] Work Phone: 1(120) 541-118010-16-2021 Progress note Author Fabiola Marinelli [facility] August 17, 2021 4:24pmNote Date/TimeOct2020 1:[address] [place] [address] [facility] [place] [id number] Hem/Onc Follow Up Note - OP Signed Patient: Mojgan Pérez MR#: [id number] : 1955 Acct:[id number] Age/Sex: 65 / F Type: REG RCR Copies to: MD Yinka Downey MD Ehsan Malek, MD Katherine M McGraw, VISUAL MERCHANDISER~ Subjective Date/Time of Service: Date of Service: 08/16/2021 Time of Service: 13:30 Chief Complaint: Patient is here today for 3 week follow up visit for multiple myeloma and to go over labs. Patient has upper right thigh painfor about 5-6 days HPI: 08/16/2021: One month followup, she recently completed palliative radiation therapy to right hip and pelvis. Platelet count still in 50,000 range with increased bruising but no bleeding. Still has some pain in right hip but slowlyimproving after radiation therapy. Slowly worsening lambda light chain --she is scheduled for ECHO next week. We discussed possibly changing therapy from Daratumumab, Velcade, Dexamethasone to Kyprolis, low dose lenalidomide, dexamethasone if adequate cardiac function. I will discuss this with Dr. Benavidez for dosing and determine if CAR-T therapy is another possible option (although we may be limited due to chronic thrombocytopenia and liver disease). Followup 2-3 weeks to review results and possible consent for change in therapy. 07/17/2021: 2-month follow-up on multiple myeloma. She reports that Thursday she developed severe painin the right leg that started proximal to the knee creating it to the hip. She had increased pain with weightbearing on the right and has been using a walker at home secondary to this. She did not feel a pop or shift in ambulation, but has been using her Percocet for pain control at home. In reviewing her laboratories platelet count remains in the 52,000 range and she is otherwisPe tolerating daratumumab well. I recommended sending for right hip, femur, and knee plain film imaging that did not show any fracture. She does have a gradually rising lambda light chain but no other significant changes in her labs. I reviewed her case with Dr. Cheng of orthopedic surgery who also reviewed her prior PET/CT showing uptake in this area. We will obtain a right hip MRI, keep her completely nonweightbearing on the right leg with walker for transfers and she has an urgent orthopedic follow-up following her MRI. I will follow-up with her in 1 month to review management and we will determine if she requires prophylactic kenton for stability of the hip based on herMRI. 05/24/2021: Here to followup 05/03/2021 bone marrow biopsy--noted to have decreased cellularity 25%, flow cytometry with 0.2% plasma cells and a 1.5% monoclonal B- cell population. FISH showed 13q and 1qabnormalities but normal cytogenetics. No myelodysplasia seen. I reassured her that recent thrombocytopenia is more likely related to splenic sequestration from liver disease and not worsening myeloma. For now continue current regimen. Will alsorecheck B12, folate, and iron profile with next labs--followup in 2 months with myeloma labs, sooner prn. 04/24/2021: 1 month followup to review PET/CT. Over the past 2 days, she notes episodes of sharp left sided neck pain over sternocleidomastoid muscle and mastoid area. No radiculopathy down left upperextremity. No new side effects of Daratumumab. F18 PET/CT shows largely unchanged diffuse uptake through multiple bony sites in axial and articular skeleton. Lambda light chains rising over past 2 month and decline of platelet count to 57,000 without bleeding. MRIof thoracic spine did not show significant thoracic canal stenosis. Due to worsening neck pain with extensive uptake on F18 PET/CT--we will send for cervical MRI. Palliative medicine has increased Percocet to tid. We will repeat bone marrow biopsy due to rising lambda light chain and falling platelet count to determine if progressionof myeloma noted. This will be scheduled in the next 1-2 weeks. 03/28/2021: 2 month followup for multiple myeloma. More recently notes neck andleft shoulder pain. Fatigue and constipation stable. Labs show stable anemia and thrombocytopenia. Serum M-spike now asymmetric gamma (no quantifiable spike). Slowly improving IgG to near normal. [place]/lambda light chain ratio normal with mildly increased lambda light chains. MRI of thoracic spine for evaluation of increasing left shoulder pain. For now we will continue current dosing of Daratumumab and recheck F18 PET/CT for response in late April 2021. 01/21/2021: Mojgan is accompanied by her daughter for 2 month followup--now Daratumumab maintenance. She notes persistent fatigue and recently added as needed laxatives to stool softener for management of constipation. Persistent left hand pain--correlates to an area of bone uptake on PET/CT. Overall F18 PET/CT appears stable with no new areas if FDG avidity (still extensive bone FDGuptake). We reviewed prior plain xrays of left hand from November--she agrees toevaluation by orthopedic surgery (determine if biopsy or steroid injections). M-spike and kappa/lambda light chains pending. CBC (platelets 60-70,000); CMP stable. Will followup in 2 months with exam and labs. 11/26/2020: Mojgan is accompanied by her daughter for 2 month followup--now Daratumumab maintenance. Stable leukopenia/low platelet 70,000. Notes 3 days of hematuria and mild dysuria. Sending UA and possible culture. Otherwise no new bone pain. Blood sugars stable. M-spike and kappa/lambda light chain ratiostable. Next f/u 2 months after one year f/u PET/CT to determine response to therapy. 09/24/2020: Mojgan presents (accompanied by her daughter) for cycle 8, week 2 followup [id number] mg/kg IV weekly, Dexamethasone 20mg weekly, and Velcade 0.7 mg/m? now sq once weekly for every 3-week cycle (21 days). She notes neuropathy symptoms are stable. Tolerating therapy well without fatigue. No bleeding and thrombocytopenia stable in 60-70,0000 range. On 10/02 she will be due for maintenance therapy with Daratumumab alone once per month. I will f/u with her in 2 months with myeloma labs, sooner as needed. Velcade and Dexamethasone will be stopped after 8 cycles. 08/13/2020: Mojgan is here for cycle 6, week 2 (day 14) daratumumab 16 mg/kg weekly, Velcade 0.7 mg/m? now sq once weekly for every 3-week cycle (21 days), and dexamethasone 20 mg weekly. No new symptoms--improving thrombocytopenia to 79,000 and improved leukopenia. 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 Still has improvement of M-spike, IgA normal and decreased lambda light chain and K/L ratio. We discussed that week 25 in Oct she will change to monthly daratumumab with weekly Velcade (1mg/m2) and Dexamethasone. Continue to follow every 6-8 weeks until maintenance schedule. 06/18/2020: Mojgan is here for cycle 3 week 3 (day 21) daratumumab 16 mg/kg weekly, Velcade 0.7 mg/m? now sq once weekly for every 5-week cycle (35 days), and dexamethasone 20 mg weekly. Tolerating well with stable leukopenia and thrombocytopenia. Mild increased symptoms of hand and foot neuropathy, but no limitation in activity. Now following with diabetes management clinic with variable glucosecontrol. We reviewed lower IgA (now M-spike IgG kappa after Daratumumab--previously IgA lambda). Lambda light chain has decreased from 516 to 41.3 to now 18.5 with normalization of K/L ratio. Continue followup myeloma labs in 6 weeks, visit in 8 weeks. 05/21/2020: Mojgan is here for cycle 2 (week 7 overall) daratumumab 16 mg/kg weekly, Velcade 0.7 mg/m? now sq once weekly for every 5-week cycle (35 days), and dexamethasone 20 mg weekly. Tolerating well with stable leukopenia and thrombocytopenia. No significant neuropathy. Noted to have improvement in lambda light chains. No further daratumumab infusion reactions. No infections,stable constipation, pain control improved. No other complaints. Continue monthly f/u with myeloma labs. --Diabetes management--added insulin on dexamethasone days. Hyperglycemia improving. 01/18/2020 (phone followup)--The patient's son was available by phone and her daughter was contactedin a separate phone call as patient presented unaccompanied due to COVID-19 precautions in our clinic during the current epidemic. Bone marrow biopsy results were reviewed as follows from procedure pe rformed 01/26/2020: --Bone marrow biopsy was suboptimal for evaluation. --Increased lambda light chain restricted monoclonal plasma cells (1.9% by flow cytometry, approximately 6% and aspirate count, but 50% by immunohistochemical stains [id number]). Sideroblastic iron present, negative for ring sideroblasts. Peripheral blood smear with mild red blood cell anisocytosis and polychromasia, leukopenia with absolute neutropenia (1000) and thrombocytopenia (54,000) consistent with prior baseline. Note: I discussed the results with Dr. Crook 01/26/2020. Preliminary findings were also discussed with Dr. Cummings 01/27/2020. Morphologic findings, immunohistochemical stains, flow cytometry, and ancillary studies may under represent the extent and severity of disease. The results of FISH myeloma panelwith prognostic markers and cytogenetic analysis are pending. --Given the patient's hip pain and presence of lytic lesions, she meets clinicalcriteria for activemyeloma. Given her hip pain and lytic lesions in weightbearing areas she was offered radiation therapy. She had a limited courseof hypofractionated palliative therapy to bilateral proximal femurs [address] Ahn. We discussed that given the COVID-19 epidemic and absence of othersignificant changes other than bony lesions (normal renal function, normal calcium, stable cytopenias), I would defer active therapy for myeloma for 4 to 6 weeks. Since she has significant history ofliver disease I will discuss her case with Dr. Piter Benavidez at [facility] malignant hematology for optimal regimen. The patient is not a transplant candidate given her nonalcoholic steatohepatitis and chronic thrombocytopenia but may be a candidate for either doublet therapy (Revlimid/dexamethasone) or triplet therapy with either Velcade/Revlimid/dexamethasone or daratumumab/Revlimid/dexamethasone. --02/03/2020: Mojgan presented unaccompanied for follow-up of bone marrow aspiration and biopsy performed by Dr. 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 The patient had been noting increased left hip pain over the past several months andplain films of the pelvis and bilateral femurs did show subtle lucencies in the bilateral proximal femurs corresponding to PET/CT findings but no other additional sclerotic lesions identified. No pathologic fractures were seen. --03/05/2020: Mojgan notes improvement of bilateral hip pain since radiation. No other changes in medical history in the past month--no infections, normal renal function, no hypercalcemia. Stable platelet counts without bleeding. Shewas given written literature regarding Dexamethasone, Velcade (thatwould be dose reduced to 0.7mg/m2 twice weekly), weekly Daratumumab and Revlimid, but I will defer decision of which regimen to use until discussion in malignant hematology tumor board. Also referring for infusion port placement prior to initiating therapy. Sign informed consent prior to initiating therapy. --Discussed with Dr. Benavidez who favors Daratumumab combination--will request prior liver biopsy and records from [facility] liver clinic. The patient and her son (by telephone) expressed understanding and will follow- up as directed in 2 weeks for consent and likely start of therapy. --04/02/2020: Mojgan presents after infusion port placement at [facility] by interventional radiology due to platelet count 40,000--she had increased bruising at site post procedure, but this has completely resolved. Her hip painis well controlled since completion of palliative radiation and no newareas of pain. She has previously reviewed information regarding Daratumumab (first dosesplit 8mg/kg IV D1,D2, then if well tolerated 16mg/kg IV weekly), Velcade at about 50% dose (for liver dysfunction) 0.7mg/m2 D1,D4,D8, D11, and [id number] IV weekly--repeat for every 3 week cycles 1st 3 cycles. She will take chemo class and likely start therapy within 2 weeks with toxicity visit in 3 weeks. Today we reviewed chemotherapy counseling for Daratumumab, Velcade, and Dexamethasone. Common toxicities were reviewed to include infusion reaction including rash/dyspnea/wheezing, myelosuppression, fatigue, nausea, vomiting, constipation, diarrhea, mouth sores, and alopecia. Other toxicities may in cludepneumonitis, neurologic, thromboembolism, hyperglycemia, hepatic and renal toxicities. The patient signed informed consent and will follow-up as directed. --04/19/2020: Mojgan is here for cycle 1 week 2 daratumumab 16 mg/kg weekly, Velcade 0.7 mg/m? twice weekly for first 2 weeks of every 3-week cycle, and dexamethasone 20 mg weekly. She did have an infusion reaction with first daratumumab with dyspnea and flushing but this improved after first dose and shehas not had recurrent infusion reactions. We have continued Velcade despite platelet counts in the 40,000 range without bleeding as we know that her baseline platelet counts remain in this range and she has not had any significant change from her baseline. Dexamethasone has caused hyperglycemia with blood sugars up to 400 and we are referring to diabetes management clinic. Otherwise she denies any significant nausea, emesis, fever, chills, night sweats, constipation, diarrhea, rash, mouthsores, or alopecia. She has not hadany change of baseline neuropathy. Liver function tests remain stable. She notes that her hip pain is well controlled since prior palliative radiation and she saw radiation oncology earlier this week with no new recommendations. I will send her myeloma labs including serum and urine protein electrophoresis, quantitative immunoglobulins, and serum kappa/lambda light chains in 2 weeks andfollow-up with her in 3 weeks. She may be seen sooner if new issues arise. This is a 65-year-old lady on chronic disability has a history of arthritis, diabetes mellitus, hypertension, COPD, GERD, and fibromyalgia who was previouslyfollow[facility] for chronic mild to moderate thrombocytopenia. She states that she was followed with Dr. Kumari prior to his senior care and was told that she had an elevated protein level as well as thrombocytopenia but never had clinical bleeding. She is 4 para4 without complicationsand was never told that she was thrombocytopenic while . She is had multiple prior surgicalprocedures without any clinical bleeding. She had been recommended for a pain procedure with Dr. Wilson but he declined to do the procedure because her platelet count was less than 100,000. For this reason she received 2 platelet transfusions, with little improvement of her platelet count and her second transfusion resulted in throat tightening due to allergy to platelets . She has never been treated with steroids and has never been told that she has immune thrombocytopenia. She has mild leukopenia with relative neutropenia, absolute neutrophil count of 400-800 and mild lymphocytosis. Hemoglobin is normal. She has not had any bright red blood per rectum or epistaxis. She has no history ofbleeding within the family however does have a mother and sister diagnosed with colon cancer, a brother diagnosed with lung cancer, and another sister diagnosedwith breast cancer. She had prior pain in the right hand mainly at the first MCP joint with some associated swelling and right foot pain and was evaluated by podiatry. She was told that her blood tests were negative forgout. She had screening with MALLORY, CCP, and rheumatoid factor all of which were negative. She says that she previously saw Dr. Petersen for cirrhosis but did not know of any specific therapy. We reviewed these findings from her liver ultrasound ordered by Dr. Benavidez Summer 2016. Initial consultation with me March 16, 2017. --The patient has been followed by me for some time for diagnosis of smoldering myeloma with a prior bone marrow biopsy May 2017 showing 15% plasma cells but the patient remained asymptomatic without bone pain or other CRAB criteria for therapy. She is also noted to have an ascending aortic aneurysm and has chronicliver disease with cirrhosis secondary to nonalcoholic steatohepatitis. She haschronic thrombocytopenia without bleeding ranging from 50-100,000 this is felt to be due to sequestration from her nonalcoholic steatohepatitis. She was previously on a liver transplant list but was recently notified that she is no longer a candidate for liver transplant. She has had chronic pain from f ibromyalgia but noted increasing bilateral hip and upper thigh pain over the last 6 months. She also is followed for EGD/colonoscopy with last documented ukugjrddo20/20/2018: 1. Normal EGD, 2. Mild sigmoid diverticulosis, 3. Internal hemorrhoids, grade 2, 4. Anal fissure with active bleeding cauterized by bipolar cautery Bone osseous survey in June 2019 showed osteopenia and degenerative changes but no lytic or blastic lesion. Patient had an F-18 PET scan 01/02/2020 which showed multiple areas of involvementof bones with increased SUV activity. She was contacted with these results by phone and I recommended bone marrow aspirate and biopsy for assessment and analysis. Her prior labs were reviewed. Her SPEP does not show anymonoclonal gammopathy. On VAHID there appears to be a trace of monoclonal gammopathy. Free light chain ratio is less than 100. There is no evidence of renal sufficiency. Patient is not anemic. She doeshave some abnormal areas on bone scan. - Summary of Therapies Summary of Therapies: 1. 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 2. She underwent a single dose of palliative radiation therapy to bilateral hips, receiving 800 cGyto right and left hip in 1 fraction in separate vaz (with a single isocenter). The treatments were given with AP/PA vaz [id number] MV photons and MLC blocks. 3. Deferred active therapy for myeloma 2 months given COVID-19 epidemic with increased risk of myelosuppression and viral transmission of contacts. --Follow-up 03/05/2020 I discussed her case with Dr. Piter Benavidez at malignant hematology. --Given her significant hepatic dysfunction, I presented her case at malignant hematology tumor board to discuss optimal therapy. 4. Cycle 1 day 1 04/10/2020: Dose reduced Velcade 0.7 mg/m? twice weekly (day 1,day 4, day 8, day 11)every 3 weeks with dexamethasone 20 mg weekly and daratumumab 16 mg/kg weekly of each 21-day cycle.After first week, Velcade decreased to 0.7mg sq weekly due to thrombocytopenia. --We will need to watch liver function, platelet count, and neuropathy closely on Velcade. 5. Cycle 9 day 1 10/02/2020: Daratumumab 16mg/kg once monthly maintenance therapy until progression. 6. 07/31/2021: Palliative radiation therapy to right supra chondral/soft tissuearea of hip which is PET positive. ROS Details: All systems reviewed & no additional complaints except as documented Subjective/ROS - Narrative: Constitutional: No Chills, No Diaphoresis, Stable Fatigue, No Fever, No Malaise, No Night Sweats, No Weakness, No Weight Gain, No Weight Loss Gastrointestinal: No Abdominal Pain, No Black Stool, No Bloating, No Bloody Stool, No Constipation,No Diarrhea, No Dysphagia, No Hematemesis, No Nausea, NoPostprandial Pain, No Rectal Bleeding, No Rectal Pain, No Vomiting, Other (chronic gastroesophageal reflux stable) --No jaundice or ascites but patient has longstanding nonalcoholic steatohepatitis with cirrhosis, previously followed by [facility] gastroenterology. Cardiovascular: No Chest Pain, No Edema, No Palpitations, No Syncope Genitourinary: No Discharge, No Dysuria, No Flank Pain, Frequency (chronic andunchanged), Resolved Hematuria, No Incontinence, No Nocturia, No Urgency, No Urinary Retention Musculoskeletal: + left shoulder and neck pain as per HPI (no thoracic cord compression, but sending for cervical MRI). Improvement of prior bilateral hip/thigh pain since radiation; positive for intermittent lumbar back pain, No Chest Wall Tenderness, Improvement of prior Joint Pain, Muscle Stiffness, Myalgia (history of fibromyalgia), --unremarkable skeletal survey June 2019. 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 12/2020: F-18 PET/CT stable. 04/2021 F-18 PET/CT stable. Right hip pain mildly improved after palliative radiation. HEENT: No Blurred Vision, No Discharge, No Ear Pain, No Epistaxis, No Rhinorrhea, No Sore Throat--patient was seen in emergency department November 2019 with persistent epistaxis. She was treated withnasal clip and packing andwas advised to continue Afrin. No recurrent bleeding. Respiratory: No Cough, No Hemoptysis, mild Shortness of Breath (chronic and unchanged due to COPD),No Sputum, No Wheezing--shortness of breath with daratumumab reaction dose 1 04/10/2020 (given a split dose over 2 days). No recurrent reaction since first dose. Neurological: No Dizziness, Stable Numbness/Tingling (reports long-standing bilateral foot numbness--unchanged since starting low-dose Velcade 04/10/2020), NoPre-existing Deficit (no history of stroke or seizure), intermittent headache Hematologic/Lymphatic: No significant bleeding thrombocytopenia from sequestration, Bruises Easily,No Enlarged Lymph Nodes, Other (reports allergyto prior platelet transfusion) Endocrine: Excessive Sweating (hot flashes, postmenopausal) Flushing, No Intolerance to Cold, Intolerance to Heat Psychiatric: No Depressed Mood, No Insomnia Integumentary: No Jaundice, No Lesions, No Rash Allergic/Immunology: No Pruritus PMFSH - History Attestation statement: The following information was validated with the patient. Source: Old Records Reviewed - Medical History Medical History: Medical History (Last Reviewed 08/17/21 @ 16:02 by Fabiola Marinelli MD) Aortic aneurysm COPD (chronic obstructive pulmonary disease) Diabetes Fibromyalgia GERD (gastroesophageal reflux disease) Hypertension Iron deficiency Multiple myeloma Neutropenia Smoldering multiple myeloma (SMM) Smoldering myeloma Temporary low platelet count - Surgical History Surgical History: Surgical History (Last Reviewed 08/17/21 @ 16:02 by Fabiola Marinelli MD) H/O: hysterectomy History of appendectomy History of cholecystectomy - Social History Smoking Status: Former smoker Tobacco Type: cigarettes Substance Use Type: None Social History Comments: [facility] Home Medications & Allergies Allergies erythromycin base [From E-Mycin] Allergy (Verified 08/16/21 13:26) Hives latex Allergy (Verified 08/16/21 13:26) Unknown Reaction moxifloxacin [From Avelox] Allergy (Verified 08/16/21 13:26) Hives Quinolones Allergy (Verified 08/16/21 13:26) Unknown Reaction tetracycline Allergy (Verified 08/16/21 13:26) Unknown Reaction Home Medications carvedilol 12.5 mg tablet 12.5 mg PO BID 11/20/17 [History Confirmed 08/16/21] duloxetine 60 mg capsule,delayed release 60 mg PO DAILY 11/20/17 [History Confirmed 08/16/21] insulin detemir U-100 100 unit/mL (3 mL) subcutaneous pen 26 units SUB-Q QHS 11/20/17 [History Confirmed 08/16/21] oxycodone 10 mg tablet 10 mg PO TID PRN 11/20/17 [History Confirmed 08/16/21] albuterol sulfate 90 mcg/actuation aerosol inhaler 2 puff INHALATION Q6H PRN 11/24/17 [History Confirmed 08/16/21] fluticasone 250 mcg-salmeterol 50 mcg/dose blistr powdr for inhalation (Advair Diskus) 1 inh INHALATION Q12H PRN 11/24/17 [History Confirmed 08/16/21] omeprazole magnesium 20 mg tablet,delayed release (Prilosec OTC) 40 mg PO DAILY 11/24/17 [History Confirmed 08/16/21] cholecalciferol (vitamin D3) 25 mcg (1,000 unit) capsule (Vitamin D3) 1,000 unitPO DAILY 04/13/19 [History Confirmed 08/16/21] metformin 500 mg tablet,extended release 24 hr 500 mg PO BID 03/05/20 [History Confirmed 08/16/21] ondansetron HCl 8 mg tablet (Zofran) 8 mg PO TID PRN #30 tab 04/02/20 [Rx Confirmed 08/16/21] insulin NPH isoph U-100 human 100 unit/mL subcutaneous suspension (Novolin N NPHU-100 Insulin isophane) 20 unit SUBCUT DIRECTED 05/21/20 [History Confirmed 08/16/21] nystatin 100,000 unit/mL oral suspension 100,000 unit BUCCAL DAILY 90 Days #500 ml 06/18/20 [Rx Confirmed 08/16/21] semaglutide (Ozempic) 0.5 mg SUBCUT QWEEK 09/24/20 [History Confirmed 08/16/21] cyanocobalamin (vitamin B-12) 5,000 mcg capsule 5,000 mcg PO QWEEK 10/29/20 [History Confirmed 08/16/21] azithromycin 250 mg tablet (Zithromax Z-Emiliano) 250 mg PO DAILY 11/26/20 [History Confirmed 08/16/21] dexamethasone 4 mg tablet 20 mg PO ONCE 90 Days #60 tab 11/29/20 [Rx Confirmed 08/16/21] vitamin B12 0.5 mg-folic acid 1 mg tablet 1 tab PO DAILY 03/28/21 [History Confirmed 08/16/21] potassium chloride 10 mEq capsule,extended release 10 meq PO DAILY #30 cap 06/05/21 [Rx Confirmed 08/16/21] ondansetron 8 mg disintegrating tablet 8 mg PO Q8H PRN #30 tab 06/18/21 [Rx Confirmed 08/16/21] acyclovir 400 mg tablet 400 mg PO BID 90 Days #180 tab 07/03/21 [Rx Confirmed 08/16/21] diazepam 5 mg tablet (Valium) 5 mg PO DIRECTED 1 Days #2 tab 07/17/21 [Rx Confirmed 08/16/21] gabapentin 300 mg tablet 600 mg PO TID 07/26/21 [History Confirmed 08/16/21] Objective - Height/Weight Height/Weight: Height 5 ft 2.99 in Weight 89.358 kg BSA for Today's Weight 2.01 - Vital Signs Vital Signs: 08/16/21 13:26 Temperature 98.0 F Pulse Rate [Left Brachial] 86 Respiratory Rate 20 Blood Pressure [Left Arm] 110/75 02 Sat by Pulse Oximetry 93 L - Pain Generalized Pain Intensity: 3 Bilateral Hip Pain Intensity: 5 Left Hip Pain Intensity: 4 Lower Back Pain Intensity: 7 Left Neck Pain Intensity: 4 Back Pain Intensity: 0 Right Thigh Pain Intensity: 4 Bilateral Leg Pain Intensity: 5 Bilateral Shoulder Pain Intensity: 6 Left index finger Pain Intensity: 4 - Emotional Needs Assessment Emotional Needs Assessment: Emotional Needs Identified? No Physical Exam Narrative: Patient is alert and oriented x3. HEAD / FACE: Normocephalic. No tenderness to palpation over scalp, no sinus tenderness to palpation. EYES: Pupils are equal and reactive to light. Conjunctivae and lids are benign in appearance. Ocular movement intact. EARS: Hearing grossly intact. NOSE / MOUTH / THROAT: Nose, mouth, tongue and oropharynx exam without visible lesion. NECK / THYROID: Neck is with moderate limitation of range of motion--tenderness over left sternocleidomastoid and mastoid bone. No cervical adenopathy on exam. Thyroid is symmetrical, without thyromegaly, masses or palpable nodules. LYMPHATIC: No palpable cervical, supraclavicular, axillary, or inguinal adenopathy. RESPIRATORY: Normal inspection. Lungs clear to auscultation and percussion. No wheezing, rales, rhonchi or rubs. Normal effort. Right chest wall infusion portwithout erythema. CARDIOVASCULAR: Regular rate and rhythm. No murmurs, gallops, or rubs. VASCULAR: Carotid, radial, femoral and pedal pulses present bilaterally. No bruits. ABDOMEN: Bowel sounds normoactive. Soft, nontender and non-distended. No hepatosplenomegaly. No masses. GENITOURINARY: No CVA tenderness. No suprapubic fullness or tenderness. No groinadenopathy. No evidence of hernias. INTEGUMENTARY: The skin is unremarkable. No rashes. No suspicious lesions. No bruising or petechiaenoted. BACK / SPINE: Mild tenderness cervical/upper thoracic spine without step off deformity. No lumbar tenderness. MUSCULOSKELETAL: Normal musculature, decreased ROM left hand grasp, swelling andTTP over left indexMTP joint, no crepitus. EXTREMITIES: 1+ bilateral leg edema. No cyanosis or clubbing. No Destini sign. NEUROLOGICAL: Alert and oriented. Cranial nerves intact. No gross motor or sensory deficits, patient ambulates unassisted. PSYCHIATRIC: No anxiety or evidence of depression. - ECOG Performance Status ECOG Score: 2 Results - Labs Labs: Diagram of Most Recent CBC and CMP 08/06/21 13:50 08/06/21 13:50 07/05/2021: IgG 537 03/18/2021: IgG 599 IgA 65 IgA 53 IgM 22 IgM 22 [place] 11.9 [place] 10.6 Lambda 42.1 Lambda 32.9 K/L ratio 0.28 K/L ratio 0.32 - Impressions MRI right femur 07/23/2021. CLINICAL DATA: Right thigh pain. Abnormal PET-CT. History of multiple myeloma. TECHNIQUE: MRI of the right femur was performed without and with intravenous contrast. COMPARISON: Plain radiographs right hip, right femur, and right knee 07/17/2021. PET-CT 04/22/2021. FINDINGS: Review of sodium fluoride PET-CT performed 04/22/2021 demonstrates increased uptake in thehead, neck, and greater trochanter of the proximal rightfemur. There are corresponding bony and adjacent soft tissue signal changes and enhancement in this location. Multiple myeloma is suspected. Prior PET-CT also demonstrated increased uptake in the supracondylar region of the distal right femur.No corresponding bony or soft tissue signal changes or enhancement are noted in this location. Noteis otherwise made of relatively mild degenerative changes at the right hip and at the right knee. No fracture is identified. Thereare no findings suspicious for avascular necrosis at the hip. No evidence of iliopsoas or trochanteric bursitis is seen. MR/MR femur RT wo/w con IMPRESSION: Bony and adjacent soft tissue signal changes and enhancement suspicious for multiple myeloma in the head, neck, and greater trochanter of theproximal right femur. Impression dictated by: Mansoor Vaca Jr., M.D.07/23/2021 7:26 PM Assessment and Plan - TNM Staging Staging: Stage IIIA Multiple Myeloma (Durie Boring criteria) (1) Multiple myeloma Qualifiers: Multiple myeloma remission status: not in remission Qualified Code(s): C90.00 - Multiple myeloma not having achieved remission Mojgan 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 She has high risk cytogenetics and I [facility] Her persistent thrombocytopenia made her ineligible for any clinical trials, and preventedher from receiving local pain procedures given her chronic low back pain. --05/2017 PET/CT images and reports performed for staging to exclude bone involvement with myeloma. 2 indeterminate areas of uptake thought to be degenerative arthritis vs early bone findings of myeloma (right parietooccipitalarea and upper sternum). She has remained asymptomatic [...] showed no lytic lesions and she has stableshoulder, hand, and right SI joint pain (although likely due to fibromyalgia. --Prior osseous survey 07/01/2019 showed osteopenia but no compression fractures or lytic lesions were identified. She had no significant change in myeloma labs(mild increase of urine M-spike, kappa/lambda ratio, and normal serum M- spike and quant immunoglobulins). Urine protein still undetectable, therefore will continue surveillance every 6 months with the same labs--no hypercalcemia, renaldysfunction (or proteinuria), anemia, or new bone symptoms. --Due to COVID- epidemic, her 6-month follow-up was performed by [...] proteins with urine M spike 43.1 but totalprotein 34.4, with no reported urine creatinine. --We deferred immunosuppressive chemotherapy for about 1 month due to control ofsymptoms after palliative radiation and concern of potential peak of COVID-19 inlate January early March. --She presented for follow-up 03/05/2020 and we discussed potential therapy options (with son available by phone). --I discussed her case with Dr. Piter Benavidez of malignant hematology, possibly presenting the patient in hematology tumor board at [facility]. --Infusion port placed 03/22/2020 at [facility] due to low platelets. No complications. --03/12/2020: Myeloma labs with no serum M-spike, + urine M spike 22.2mg/24h (14%). Immunofixation IgA lambda specificity. IgA normal 227, Serum kappa 20.6, serum lambda 516.7, Free kappa/lambda ratio0.04. Normal renal function and calcium. Lower ANC 600 and platelets 40,000 --04/10/2020: Started cycle 1 day 1 of weekly dexamethasone 20 mg IV (careful to watch blood sugars with diabetes and known hepatic dysfunction), decreased dose of bortezomib 0.7 mg/m? twice weekly for2 weeks on 1 week off (due to known liver disease and thrombocytopenia), and daratumumab 8mg/kg D1,D2 IV first week,then 16 mg/kg IV weekly and we may consider Revlimid as a 4th medication if needed (deferred for worsening neutropenia and thrombocytopenia--I am reluctant to add this therapy initially). --She has baseline cirrhosis with chronic thrombocytopenia and I am attempting to treat her with the least myelosuppressive regimen after 2 month deferral of therapy due to COVID-19 pandemic noted above. Patient does not have any currentsigns or symptoms of infection. On Acyclovir 400mg bid for VZV prophylaxis. --We requested prior liver biopsy from [facility] for review of the extentof her known liver dysfunction. It is doubtful she will be a high-dose chemotherapy/peripheral blood stem cell transplant candidate given her history of cirrhosis and chronic cytopenias. --04/19/2020 toxicity follow-up: Other than daratumumab reaction with cycle 1 day1 and hyperglycemiasecondary to dexamethasone, she has not had any other new toxicities of therapy thrombocytopenia remains in the 40,000 range without bleeding and we will continue treating with 50% dose Velcade as long as she doesnot have worsening hepatic function, thrombocytopenia, or neuropathy. I am sending herto diabetes management clinic for her hyperglycemia to adjust her insulin regimen (patient has previously discussed this with her primary physician who agrees). --05/21/2020: Tolerating weekly daratumumab, bortezomib, dexamethasone well. Diabetes management improving. Thrombocytopenia stable in 50,000 range without bleeding. --05/03/2020: Myeloma labs with no serum M-spike (not performed), + urine M spike now resolved. Immunofixation IgA lambda specificity. IgA normal 112, Serum kappa 7.8, serum lambda 41.3, Free kappa/lambda ratio 0.19 (improved). Normal renal function and calcium. Mildly improved ANC 900 and platelets 54,000 --06/18/2020: No new symptoms on weekly daratumumab, bortezomib, dexamethasone after dose reductionsof bortezomib for cytopenias and neuropathy. Myeloma labsshow lower IgA 72. M-spike IgG kappa afterDaratumumab--previously IgA lambda. Lambda light chain has decreased from 516 to 41.3 to now 18.5 with normalizationof K/L ratio. --08/13/2020: Improving thrombocytopenia (79,000) and decreasing M-spike, IgA and lambda light chain. Next myeloma f/u with labs in 6 weeks, sooner prn. --09/24/2020: Now completing cycle 8 Daratumumab/Velcade/Dexamethasone with decreased M-spike, low IgA and normalization of lambda light chain. Platelets stable at 60-70,000 without bleeding. With cycle 9 onward 10/02/2020, she will maintain once monthly Daratumumab only (stop Velcade and Dexamethasone). F/u every 2 months. --11/26/2020: Stable M-spike and K/L ratio on Daratumumab maintenance. Restaging F-18 PET/CT orderedfor 12/2020 and will review at next f/u. No signs/symptoms of infection rather than recent hematuria/dysuria--sending UA andCx if indicated. Leukopenia and thrombocytopenia relatively stable on current therapy. --01/21/2021: One year f/u F18 PET/CT with stable FDG avidity, monoclonal labs (SPEP, Quant Igs, kappa/lambda ratio) all pending. Stable CBC and CMP. Persistent pain left hand 2nd MCP joint--increaseduptake on PET/CT but no lesion on left hand xray from 11/2020. Sending for ortho evaluation. For nowcontinue once monthly Daratumumab. F/u with myeloma labs and exam in 2 months, sooner prn. --03/28/2021: 2 month followup visit--worsening neck/upper back/shoulder pain. Ordered thoracic spine MRI and will contact patient with results. Otherwise stable CBC, CMP and slowly improved monoclonal gammopathy (rising IgG to now normal). Next PET/CT F18 scheduled late April and I will f/u at that time. --04/24/2021: 1 month followup--no spinal stenosis on thoracic MRI and stable PET/CT bony uptake. Now worsening left sternocleidomastoid pain. Sending for cervical MRI and setting up bone marrow biopsy in the next 1-2 weeks due to declining platelets and rising lambda light chains past 2 visits. 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 Hypocellular with recent worseningplatelets without bleeding--will recheck B12, folate, and ferritin. [...] sent for plain films of the hip femurand knee showing degenerative changes but no acute [...] progression although she still has slow rise inlambda light chain and platelet count remains in the 50,000 range. She has increased bruising but no bleeding. For now we will continue daratumumab and follow closely in 6 weeks with monoclonal gammopathy labs and to review recommendations from orthopedic surgery. --08/16/2021: Pain improved after radiation but she has persistent thrombocytopenia and rising lambda light chain. She will have Echo next week and we gave her information regarding Kyprolis therapy.She will return in 2 weeks to discuss possible start of Kyprolis, lenolidamide, dexamethasone therapy. She agrees with this plan. This is a low complexity visit over 20 minutes for review of symptoms after radiation, labs, and possible change in therapy. 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 I previously reviewed her outpatient records from [facility], including review of notes, laboratories, and prior bone marrow biopsy 13 years ago. 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 Most recent platelet count is relatively stable at 54,000 but no clinical bleeding. She waspreviously referred to weight reduction clinic and may have slow improvement of steatohepatitis with lifestyle modification. Unless she has active bleeding or planned surgery, we will continue observation during treatment of active myelomato commence next month as noted above. --Agree with recommendation for EGD surveillance for varices (last was 09/2018--negative). This will be deferred during current COVID-19 epidemic. --Prior vitamin B12 and folic acid are normal, for known history of neuropathy. As noted above, I reviewed the negative M spike on serum protein electrophoresiswith immunofixation, but positive for Bence Murray protein on urine protein electrophoresis. Her Quantitative immunoglobulins IgG, IgA, and I gM were all within normal limits, however her serum kappa lambda light chain analysis showeda predominance of lambda light chains. --Previous labs for lupus anticoagulant with DRVVT, hexagonal phase phospholipid, anti-cardiolipin IgG and IgA, and beta 2 glycoprotein IgG and IgA were within normal limits. --Evaluated in ED November 2019 for epistaxis which resolved. Platelet count wasstable at 12/28/2019 follow-up. She continues surveillance with liver clinic at [facility] and I will continue to follow her every 6 months, sooner if newbleeding issues arise. --04/02/2020: We reviewed informed consent for Daratumumab/Velcade/Dexamethasone for active myeloma therapy. I requested prior liver biopsy results and notes from liver clinic at [facility]. Platelet count in 40,000 range but patient has had no active bleeding following infusion port placement 03/22/2020. --08/13/2020: Cycle 6 week 2 toxicity check with improved thrombocytopenia 79,000 range with no bleeding. We will continue current dosing with Velcade 0.7mg/m2 sq (now once weekly), dexamethasone 20 mg weekly, and full dose daratumumab with close follow-up of liver function and platelet counts. --09/24/2020, 01/21/2021, 03/28/2021: Platelets stable 60-70,000 with no new toxicities, started Daratumumab maintenance 10/02/2020. --04/24/2021: Platelets now down to 57,000 with rising lambda light chains. Will eval with repeat bone marrow biopsy due to nonsecretory myeloma. --05/24/2021: Bone marrow hypocellular without significant myeloma progression. Normal B12/folate stores, continue Daratumumab maintenance. --08/16/2021: Persistent thrombocytopenia in 50,000 range, consider change in therapy due to risinglambda light chains. Will check echo and review case [place] at to discuss next line of therapy. (3) Cancer-related pain Improved symptoms after palliative radiation to bilateral hips--one dose 02/07/2020. Will continue tofollow on myeloma chemotherapy. Extensive, but stable bone involvement on F-18 PET/CT 12/2020 and 04/2021. Recent increased leftneck and shoulder pain. Increased oxycodone dosing to three times daily, no unusual right hip pain is noted above--followed by palliative medicine. -Now has completed right hip radiation with persistent but improved pain. Will continue to follow with palliative medicine. 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 She wasreferred to [facility] to attempt weight reduction through diet and exercise that may prevent further fatty infiltration that may further impairher liver function. [facility] hepatology discussed liver transplant but sheis likely no longer a candidate for this given active myeloma. We chose least hepatotoxic regimen for treatment of her active myeloma with 50% dose reduction of Velcade. Liver function remained stable since start of therapy 04/10/2020. --Requested prior liver biopsy and [facility] liver clinic records. (5) Encounter for antineoplastic immunotherapy Tolerating Daratumumab maintenance well without significant toxicities. Bone marrow biopsy did not reveal indication for change in therapy. She may require additional palliative radiation if no clearetiology found by orthopedic surgeryfor her increased right hip/femur pain. --08/16/2021: Baseline Echo, consider change to Kyprolis with low dose lenalidomide. - Chemo Plan Chemo Plan (Dose, Rate, Freq): Palliative radiation to 02/07/2020, deferred active therapy for myeloma for 8 weeks due to current COVID-19 epidemic. Discussed at Malignant Hematology Tumor Board early May to determine optimal regimen given her comorbidities. --04/10/2020: cycle 1, day 1 weekly dexamethasone 20 mg IV (careful to watch bloodsugars with diabetes and known hepatic dysfunction), decreased dose of bortezomib 0.7 mg/m? twice weekly for 2 weeks on1 week off (decreased to once weekly after first cycle due to known liver disease and thrombocytopenia), and daratumumab 8mg/kg D1,D2 IV first week, then 16 mg/kg IV weekly --10/02/2020: Started Daratumumab monthly maintenance 16mg/kg IV (stopped Velcade and Dexamethasone) --Palliative radiation 07/31/2021 right hip Goal of Treatment: Palliative - Time with Patient Time Spent with Patient (Follow Up Visit): Less than 20 minutes - Low complexityto review symptoms and labs Coordination of Care & Counseling Time: Greater than 50% of time spent with patient was for coordination of care (as documented) and [id number] counseling of patient and/or family. Dictated By: Fabiola Marinelli MD DD/ 1330 Signed By: <Electronically signed by MD Fabiola Marinelli> 08/17/21 [address] [facility] Work Phone: [phone]) 516-874309-24-2021 Progress note Author Silvestre Ahn [facility] July 26, 2021 8:00pmNote Date/TimeSept2020 7:47pmTexas [facility] at [address] [address] Rad Onc Follow Up Note - OP Signed Patient: Mojgan Pérez MR#: [id number] : 1955 Acct:[id number] Age/Sex: 65 / F Type: REG RCR Copies to: MD Yinka Downey MD~ Subjective - Service Date/Time Date: 07/26/21 Time: 14:00 - Diagnosis Multiple myeloma - Chief Complaint I have pain in my right hip - History of Present Illness 65-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 Marinelli and she also has nonalcoholic steatohepatitis and pancytopenia (her platelets today are 54,000). She had been seen in the liver clinic and liver transplantation was considered but ultimately, it was felt that she is not a candidate for liver transplant. She was seen earlier this year by Dr. Marinelli after an episode of epistaxis which did not recur. She did not have any evidence of gingival bleeding, hematuria or rectal bleeding. Patient complainedof deep aches in the left hip and low back pain which had become more pronouncedover last several weeks. Her skeletal survey about 6 months ago had shown pronounced osteopenia and osteoarthritis but because of her increasing pains, Dr. Marinelli ordered a PET/CT scan which was done on 01/02/2020. The PET scan showedmultiple areas of abnormal radiotracer uptake including the calvarium, cervical spine, thoracic spine, lumbar spine and sacrum, there were also focal abnormal areas of radiotracer accumulation within the sternum, pelvis, proximal femurs and distal femoral shafts. Her main complaints were pain in bilateral hips and she received a single dose of 800 cGy to her right and left hip on02/07/2020. Shehad remarkable improvement in pain and she has been well palliated for last yearand a half. She continued to receive her systemic therapy under Dr. Marinelli's care no presents with 3 to 4-week history of right hip pain. Her PET CT scan inJ2020 had showed increased areas of uptake around the right femoral neck andgreater trochanter area. She is seen today again at Dr. Marinelli's requestfor additional palliative radiation to her right hip and upper femur area. She has difficulty in ambulation and she is currently on Percocets with moderate leaf ofher pain. She has no complaints of fever, chills or night sweats, weight loss, headaches, nausea, peripheral lymphadenopathy, cough, hemoptysis, abdominal discomfort, urinary or bowel problems, vaginal bleeding or discharge, leg swelling, motor or sensory changes. I've closely reviewed the patient's oncologic, medical, surgical, social, and family history. Changes noted above. I also reviewed the patient's medicationsvia reconciliation, as per the nursing record. - Review of Systems ROS: As per HPI. Objective Height 5 ft 2.99 in Weight 90.265 kg Temp 98 F 07/26/21 13:16 Pulse 80 07/26/21 13:16 Resp 20 07/26/21 13:16 BP 122/73 07/26/21 13:16 Pulse Ox 98 07/26/21 13:16 Pain: 0/10 Emotional Needs Assessment: Emotional Needs Identified? No Karnofsky Performance Scale: 60%: Requires assistance, but can meet most needs with assistance Physical Exam: On examination today, she is an alert, oriented, pleasant female who is in no acute distress. HEENT examination revealed no cranial neuropathy. No palpable neck lymphadenopathy. Her breastswere not examined today. Her lungs are clear to auscultation. Cardiac examination is unremarkable. She has no spinal or paraspinal tenderness. Her abdomen is soft and nontender and there isno palpable mass or organomegaly. Pelvic and rectal examination not done. Local examination of both hips did not reveal any significant skin changes from her prior radiation therapy treatments. Mobility of the right hip is restrictedand she is unable to lift her leg off the horizontal due to pain. Left hip motion is normal. She has no leg edema. Her neurological examination including motor, sensory and cerebellar functions are within normal limits. 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 Marinelli's care had palliative treatment to bilateral hips in February 2020 and she received a single dose of 800 cGy to both hip and upper femoral with excellent palliation and relief of her symptoms. She now presents with right hip pain and I personally reviewed her recent MRI study and x-rays ofthe femur as well as PET/CT scan from April 2021. She has significant restriction of mobility of the right hip and the pain is poorly controlled. I also reviewed her prior RT treatment records and she had received 800 cGy in single fraction to the right hip and upper femur. I plan additional radiation therapy treatments to a dose of 3000 cGy in 12 fractions again to the right hip and upper femoral area. She also had a supra condyle FDG uptake above her rightknee and the CT scan did not show any mass and shehas no symptoms in this area.She has diffuse bony disease and at this point and after discussion with Dr. Marinelli, I do not plan to treat her right supra chondral/soft tissue area which isPET positive.Pros and cons of repeat radiation therapy treatment to her right hip and upper femur area were discussed with the patient and she signed informedconsent. She will return for CT sedation on Thursday of next week with plans to initiate her palliative radiation soon thereafter. Postradiation, patient will be started on systemic therapy again by Dr. Marinelli. Total Time Spent with Patient: Greater than 30 minutes I spent 35 minutes [id number] time with this patient and more than 50% of timeallotted to patienteducation, answering questions, and coordinating care. N.B: Voice-recognition software was used in the creation of this note. Efforts were made to detect and correct typographical and/or grammatical errors;please excuse them should you find any. Dictated By: Silvestre Ahn MD DD/ 45 Signed By: <Electronically signed by Silvestre Ahn MD> 07/26/211999 [facility] Work Phone: [phone] Progress note Author Fabiola Marinelli [facility] July 17, 2021 4:42pmNote Date/TimeSept2020 9:50[facility] [place] [address] Hem/Onc Follow Up Note - OP Signed Patient: Mojgan Pérez MR#: [id number] : 1955 Acct:[id number] Age/Sex: 65 / F Type: REG RCR Copies to: MD Yinka Downey MD Colleen R Calvey, MD Katherine M McGraw, VISUAL MERCHANDISER~ Subjective Date/Time of Service: Date of Service: 07/17/2021 Time of Service: 09:49 Chief Complaint: Patient is here today for 8 week follow up visit for multiple myelom, thrombocytopenia and neutropenia. She is here to go over labs. She burises easy. She has severe right thigh painthat started Thursday HPI: 07/17/2021: 2-month follow-up on multiple myeloma. She reports that Thursday she developed severe painin the right leg that started proximal to the knee creating it to the hip. She had increased pain with weightbearing on the right and has been using a walker at home secondary to this. She did not feel a pop or shift in ambulation, but has been using her Percocet for pain control at home. In reviewing her laboratories platelet count remains in the 52,000 range and she is otherwise tolerating daratumumab well. I recommended sending for right hip, femur, and knee plain film imaging that did not show any fracture. She does have a gradually rising lambda light chain but no other significant changes in her labs. I reviewed her case with Dr. Cheng of orthopedic surgery who also reviewed her prior PET/CT showing uptake in this area. We will obtain a right hip MRI, keep her completely nonweightbearing on the right leg with walker for transfers and she has an urgent orthopedic follow-up following her MRI. I will follow-up with her in 1 month to review management and we will determine if she requires prophylactic kenton for stability of the hip based on herMRI. 05/24/2021: Here to followup 05/03/2021 bone marrow biopsy--noted to have decreased cellularity 25%, flow cytometry with 0.2% plasma cells and a 1.5% monoclonal B- cell population. FISH showed 13q and 1qabnormalities but normal cytogenetics. No myelodysplasia seen. I reassured her that recent thrombocytopenia is more likely related to splenic sequestration from liver disease and not worsening myeloma. For now continue current regimen. Will alsorecheck B12, folate, and iron profile with next labs--followup in 2 months with myeloma labs, sooner prn. 04/24/2021: 1 month followup to review PET/CT. Over the past 2 days, she notes episodes of sharp left sided neck pain over sternocleidomastoid muscle and mastoid area. No radiculopathy down left upperextremity. No new side effects of Daratumumab. F18 PET/CT shows largely unchanged diffuse uptake through multiple bony sites in axial and articular skeleton. Lambda light chains risingover past 2 month and decline of platelet count to 57,000 without bleeding. MRIof thoracic spine did not show significant thoracic canal stenosis. Due to worsening neck pain with extensive uptake on F18 PET/CT--we will send for cervical MRI. Palliative medicine has increased Percocet to tid. We will repeat bone marrow biopsy due to rising lambda light chain and falling platelet count to determine if progression of myeloma noted. This will be scheduled in the next 1-2 weeks. 03/28/2021: 2 month followup for multiple myeloma. More recently notes neck andleft shoulder pain. Fatigue and constipation stable. Labs show stable anemia and thrombocytopenia. Serum M-spike now asymmetric gamma (no quantifiable spike). Slowly improving IgG to near normal. [place]/lambda light chain ratio normal with mildly increased lambda light chains. MRI of thoracic spine for evaluation of increasing left shoulder pain. For now we will continue current dosing of Daratumumab and recheck F18 PET/CT for response in late April 2021. 01/21/2021: Mojgan is accompanied by her daughter for 2 month followup--now Daratumumab maintenance. She notes persistent fatigue and recently added as needed laxatives to stool softener for management of constipation. Persistent left hand pain--correlates to an area of bone uptake on PET/CT. Overall F18 PET/CT appears stable with no new areas if FDG avidity (still extensive bone FDGuptake). We reviewed prior plain xrays of left hand from November--she agrees toevaluation by orthopedic surgery (determine if biopsy or steroid injections). M-spike and kappa/lambda light chains pending. CBC (platelets 60-70,000); CMP stable. Will followup in 2 months with exam and labs. 11/26/2020: Mojgan is accompanied by her daughter for 2 month followup--now Daratumumab maintenance. Stable leukopenia/low platelet 70,000. Notes 3 days of hematuria and mild dysuria. Sending UA and possible culture. Otherwise no new bone pain. Blood sugars stable. M-spike and kappa/lambda light chain ratiostable. Next f/u 2 months after one year f/u PET/CT to determine response to therapy. 09/24/2020: Mojgan presents (accompanied by her daughter) for cycle 8, week 2 followup [id number] mg/kg IV weekly, Dexamethasone 20mg weekly, and Velcade 0.7 mg/m? now sq once weekly for every 3-week cycle (21 days). She notes neuropathy symptoms are stable. Tolerating therapy well without fatigue. No bleeding and thrombocytopenia stable in 60-70,0000 range. On 10/02 she will be due for maintenance therapy with Daratumumab alone once per month. I will f/u with her in 2 months with myeloma labs, sooner as needed. Velcade and Dexamethasone will be stopped after 8 cycles. 08/13/2020: Mojgan is here for cycle 6, week 2 (day 14) daratumumab 16 mg/kg weekly, Velcade 0.7 mg/m? now sq once weekly for every 3-week cycle (21 days), and dexamethasone 20 mg weekly. No new symptoms--improving thrombocytopenia to 79,000 and improved leukopenia. 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 Still has improvement of M-spike, IgA normal and decreased lambda light chain and K/L ratio. We discussed that week 25 in Oct she will change to monthly daratumumab with weekly Velcade (1mg/m2) and Dexamethasone. Continue to follow every 6-8 weeks until maintenance schedule. 06/18/2020: Mojgan is here for cycle 3 week 3 (day 21) daratumumab 16 mg/kg weekly, Velcade 0.7 mg/m? now sq once weekly for every 5-week cycle (35 days), and dexamethasone 20 mg weekly. Tolerating well with stable leukopenia and thrombocytopenia. Mild increased symptoms of hand and foot neuropathy, but no limitation in activity. Now following with diabetes management clinic with variable glucosecontrol. We reviewed lower IgA (now M-spike IgG kappa after Daratumumab--previously IgA lambda). Lambda light chain has decreased from 516 to 41.3 to now 18.5 with normalization of K/L ratio. Continue followup myeloma labs in 6 weeks, visit in 8 weeks. 05/21/2020: Mojgan is here for cycle 2 (week 7 overall) daratumumab 16 mg/kg weekly, Velcade 0.7 mg/m? now sq once weekly for every 5-week cycle (35 days), and dexamethasone 20 mg weekly. Tolerating well with stable leukopenia and thrombocytopenia. No significant neuropathy. Noted to have improvement in lambda light chains. No further daratumumab infusion reactions. No infections,stable constipation, pain control improved. No other complaints. Continue monthly f/u with myeloma labs. --Diabetes management--added insulin on dexamethasone days. Hyperglycemia improving. 01/18/2020 (phone followup)--The patient's son was available by phone and her daughter was contactedin a separate phone call as patient presented unaccompanied due to COVID-19 precautions in our clinic during the current epidemic. Bone marrow biopsy results were reviewed as follows from procedure pe rformed 01/26/2020: --Bone marrow biopsy was suboptimal for evaluation. --Increased lambda light chain restricted monoclonal plasma cells (1.9% by flow cytometry, approximately 6% and aspirate count, but 50% by immunohistochemical stains [id number]). Sideroblastic iron present, negative for ring sideroblasts. Peripheral blood smear with mild red blood cell anisocytosis and polychromasia, leukopenia with absolute neutropenia (1000) and thrombocytopenia (54,000) consistent with prior baseline. Note: I discussed the results with Dr. Crook 01/26/2020. Preliminary findings were also discussed with Dr. Cummings 01/27/2020. Morphologic findings, immunohistochemical stains, flow cytometry, and ancillary studies may under represent the extent and severity of disease. The results of FISH myeloma panelwith prognostic markers and cytogenetic analysis are pending. --Given the patient's hip pain and presence of lytic lesions, she meets clinicalcriteria for activemyeloma. Given her hip pain and lytic lesions in weightbearing areas she was offered radiation therapy. She had a limited course ofhypofractionated palliative therapy to bilateral proximal femurs 02/07/[address] Ahn[address] We discussed that given the COVID-19 epidemic and absence of othersignificant changes other than bony lesions (normal renal function, normal calcium, stable cytopenias), I would defer active therapy for myeloma for 4 to 6 weeks. Since she has significant history ofliver disease I will discuss her case with Dr. Piter Benavidez at [facility] malignant hematology for optimal regimen. The patient is not a transplant candidate given her nonalcoholic steatohepatitis and chronic thrombocytopenia but may be a candidate for either doublet therapy (Revlimid/dexamethasone) or triplet therapy with either Velcade/Revlimid/dexamethasone or daratumumab/Revlimid/dexamethasone. --02/03/2020: Mojgan presented unaccompanied for follow-up of bone marrow aspiration and biopsy performed by Dr. 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 The patient had been noting increased left hip pain over the past several months andplain films of the pelvis and bilateral femurs did show subtle lucencies in the bilateral proximal femurs corresponding to PET/CT findings but no other additional sclerotic lesions identified. No pathologic fractures were seen. --03/05/2020: Mojgan notes improvement of bilateral hip pain since radiation. No other changes in medical history in the past month--no infections, normal renal function, no hypercalcemia. Stable platelet counts without bleeding. Shewas given written literature regarding Dexamethasone, Velcade (thatwould be dose reduced to 0.7mg/m2 twice weekly), weekly Daratumumab and Revlimid, but I will defer decision of which regimen to use until discussion in malignant hematology tumor board. Also referring for infusion port placement prior to initiating therapy. Sign informed consent prior to initiating therapy. --Discussed with Dr. Benavidez who favors Daratumumab combination--will request prior liver biopsy and records from [facility] liver clinic. The patient and her son (by telephone) expressed understanding and will follow- up as directed in 2 weeks for consent and likely start of therapy. --04/02/2020: Mojgan presents after infusion port placement at [facility] by interventional radiology due to platelet count 40,000--she had increased bruising at site post procedure, but this has completely resolved. Her hip painis well controlled since completion of palliative radiation and no newareas of pain. She has previously reviewed information regarding Daratumumab (first dosesplit 8mg/kg IV D1,D2, then if well tolerated 16mg/kg IV weekly), Velcade at about 50% dose (for liver dysfunction) 0.7mg/m2 D1,D4,D8, D11, and [id number] IV weekly--repeat for every 3 week cycles 1st 3 cycles. She will take chemo class and likely start therapy within 2 weeks with toxicity visit in 3 weeks. Today we reviewed chemotherapy counseling for Daratumumab, Velcade, and Dexamethasone. Common toxicities were reviewed to include infusion reaction including rash/dyspnea/wheezing, myelosuppression, fatigue, nausea, vomiting, constipation, diarrhea, mouth sores, and alopecia. Other toxicities may in cludepneumonitis, neurologic, thromboembolism, hyperglycemia, hepatic and renal toxicities. The patient signed informed consent and will follow-up as directed. --04/19/2020: Mojgan is here for cycle 1 week 2 daratumumab 16 mg/kg weekly, Velcade 0.7 mg/m? twice weekly for first 2 weeks of every 3-week cycle, and dexamethasone 20 mg weekly. She did have an infusion reaction with first daratumumab with dyspnea and flushing but this improved after first dose and shehas not had recurrent infusion reactions. We have continued Velcade despite platelet counts in the 40,000 range without bleeding as we know that her baseline platelet counts remain in this range and she has not had any significant change from her baseline. Dexamethasone has caused hyperglycemia with blood sugars up to 400 and we are referring to diabetes management clinic. Otherwise she denies any significant nausea, emesis, fever, chills, night sweats, constipation, diarrhea, rash, mouthsores, or alopecia. She has not hadany change of baseline neuropathy. Liver function tests remain stable. She notes that her hip pain is well controlled since prior palliative radiation and she saw radiation oncology earlier this week with no new recommendations. I will send her myeloma labs including serum and urine protein electrophoresis, quantitative immunoglobulins, and serum kappa/lambda light chains in 2 weeks andfollow-up with her in 3 weeks. She may be seen sooner if new issues arise. This is a 65-year-old lady on chronic disability has a history of arthritis, diabetes mellitus, hypertension, COPD, GERD, and fibromyalgia who was previouslyfollowed [facility] for chronic mild to moderate thrombocytopenia. She states that she was followed with Dr. Kumari prior to his senior care and was told that she had an elevated protein level as well as thrombocytopenia but never had clinical bleeding. She is 4 para4 without complicationsand was never told that she was thrombocytopenic while . She is had multiple prior surgicalprocedures without any clinical bleeding. She had been recommended for a pain procedure with Dr. Wilson but he declined to do the procedure because her platelet count was less than 100,000. For this reason she received 2 platelet transfusions, with little improvement of her platelet count and her second transfusion resulted in throat tightening due to allergy to platelets . She has never beentreated with steroids and has never been told that she has immune thrombocytopenia. She has mild leukopenia with relative neutropenia, absolute neutrophil count of 400-800 and mild lymphocytosis. Hemoglobin is normal. She has not had any bright red blood per rectum or epistaxis. She has no history ofbleeding within the family however does have a mother and sister diagnosed with colon cancer, a brother diagnosed with lung cancer, and another sister diagnosedwith breast cancer. She had prior pain in the right hand mainly at the first MCP joint with some associated swelling and right foot pain and was evaluated by podiatry. She was told that her blood tests were negative forgout. She had screening with MALLORY, CCP, and rheumatoid factor all of which were negative. She says that she previously saw Dr. Petersen for cirrhosis but did not know of any specific therapy. We reviewed these findings from her liver ultrasound ordered by Dr. Benavidez Summer 2016. Initial consultation with me March 16, 2017. --The patient has been followed by me for some time for diagnosis of smoldering myeloma with a prior bone marrow biopsy May 2017 showing 15% plasma cells but the patient remained asymptomatic without bone pain or other CRAB criteria for therapy. She is also noted to have an ascending aortic aneurysm and has chronicliver disease with cirrhosis secondary to nonalcoholic steatohepatitis. She haschronic thrombocytopenia without bleeding ranging from 50-100,000 this is felt to be due to sequestration from her nonalcoholic steatohepatitis. She was previously on a liver transplant list but was recently notified that she is no longer a candidate for liver transplant. She has had chronic pain from f ibromyalgia but noted increasing bilateral hip and upper thigh pain over the last 6 months. She also is followed for EGD/colonoscopy with last documented procedure 09/21/2018: 1. Normal EGD, 2. Mild sigmoid diverticulosis, 3. Internal hemorrhoids, grade 2, 4. Anal fissure with active bleeding cauterized by bipolar cautery Bone osseous survey in June 2019 showed osteopenia and degenerative changes but no lytic or blastic lesion. Patient had an F-18 PET scan 01/02/2020 which showed multiple areas of involvementof bones with increased SUV activity. She was contacted with these results by phone and I recommended bone marrow aspirate and biopsy for assessment and analysis. Her prior labs were reviewed. Her SPEP does not show anymonoclonal gammopathy. On VAHID there appears to be a trace of monoclonal gammopathy. Free light chain ratio is less than 100. There is no evidence of renal sufficiency. Patient is not anemic. She doeshave some abnormal areas on bone scan. - Summary of Therapies Summary of Therapies: 1. 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 2. She underwent a single dose of palliative radiation therapy to bilateral hips, receiving 800 cGyto right and left hip in 1 fraction in separate vaz (with a single isocenter). The treatments were given with AP/PA vaz [id number] MV photons and MLC blocks. 3. Deferred active therapy for myeloma 2 months given COVID-19 epidemic with increased risk of myelosuppression and viral transmission of contacts. --Follow-up 03/05/2020 I discussed her case with Dr. Piter Benavidez at malignant hematology. --Given her significant hepatic dysfunction, I presented her case at malignant hematology tumor board to discuss optimal therapy. 4. Cycle 1 day 1 04/10/2020: Dose reduced Velcade 0.7 mg/m? twice weekly (day 1,day 4, day 8, day 11)every 3 weeks with dexamethasone 20 mg weekly and daratumumab 16 mg/kg weekly of each 21-day cycle.After first week, Velcade decreased to 0.7mg sq weekly due to thrombocytopenia. --We will need to watch liver function, platelet count, and neuropathy closely on Velcade. 5. Cycle 9 day 1 10/02/2020: Daratumumab 16mg/kg once monthly maintenance therapy until progression. ROS Details: All systems reviewed & no additional complaints except as documented Subjective/ROS - Narrative: Constitutional: No Chills, No Diaphoresis, Stable Fatigue, No Fever, No Malaise, No Night Sweats, No Weakness, No Weight Gain, No Weight Loss Gastrointestinal: No Abdominal Pain, No Black Stool, No Bloating, No Bloody Stool, No Constipation,No Diarrhea, No Dysphagia, No Hematemesis, No Nausea, NoPostprandial Pain, No Rectal Bleeding, No Rectal Pain, No Vomiting, Other (chronic gastroesophageal reflux stable) --No jaundice or ascites but patient has longstanding nonalcoholic steatohepatitis with cirrhosis, previously followed by [facility] gastroenterology. Cardiovascular: No Chest Pain, No Edema, No Palpitations, No Syncope Genitourinary: No Discharge, No Dysuria, No Flank Pain, Frequency (chronic andunchanged), Resolved Hematuria, No Incontinence, No Nocturia, No Urgency, No Urinary Retention Musculoskeletal: + left shoulder and neck pain as per HPI (no thoracic cord compression, but sending for cervical MRI). Improvement of prior bilateral hip/thigh pain since radiation; positive for intermittent lumbar back pain, No Chest Wall Tenderness, Improvement of prior Joint Pain, Muscle Stiffness, Myalgia (history of fibromyalgia), --unremarkable skeletal survey June 2019. 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 12/2020: F-18 PET/CT stable. 04/2021 F-18 PET/CT stable. HEENT: No Blurred Vision, No Discharge, No Ear Pain, No Epistaxis, No Rhinorrhea, No Sore Throat--patient was seen in emergency department November 2019 with persistent epistaxis. She was treated withnasal clip and packing andwas advised to continue Afrin. No recurrent bleeding. Respiratory: No Cough, No Hemoptysis, mild Shortness of Breath (chronic and unchanged due to COPD),No Sputum, No Wheezing--shortness of breath with daratumumab reaction dose 1 04/10/2020 (given a split dose over 2 days). No recurrent reaction since first dose. Neurological: No Dizziness, Stable Numbness/Tingling (reports long-standing bilateral foot numbness--unchanged since starting low-dose Velcade 04/10/2020), NoPre-existing Deficit (no history of stroke or seizure), intermittent headache Hematologic/Lymphatic: No significant bleeding thrombocytopenia from sequestration, Bruises Easily,No Enlarged Lymph Nodes, Other (reports allergyto prior platelet transfusion) Endocrine: Excessive Sweating (hot flashes, postmenopausal) Flushing, No Intolerance to Cold, Intolerance to Heat Psychiatric: No Depressed Mood, No Insomnia Integumentary: No Jaundice, No Lesions, No Rash Allergic/Immunology: No Pruritus PMFSH - Medical History Medical History: Medical History (Last Reviewed 05/24/21 @ 22:32 by Fabiola Marinelli MD) Aortic aneurysm COPD (chronic obstructive pulmonary disease) Diabetes Fibromyalgia GERD (gastroesophageal reflux disease) Iron deficiency Neutropenia Smoldering multiple myeloma (SMM) Smoldering myeloma Temporary low platelet count - Surgical History Surgical History: Surgical History (Last Reviewed 05/24/21 @ 22:32 by Fabiola Marinelli MD) H/O: hysterectomy History of appendectomy History of cholecystectomy - Social History Smoking Status: Former smoker Tobacco Type: cigarettes Substance Use Type: None Social History Comments: Lives with son a juli Home Medications & Allergies Allergies latex Allergy (Verified 07/17/21 09:42) Unknown Reaction moxifloxacin [From Avelox] Allergy (Verified 07/17/21 09:42) Hives Quinolones Allergy (Verified 07/17/21 09:42) Unknown Reaction tetracycline Allergy (Verified 07/17/21 09:42) Unknown Reaction Home Medications carvedilol 12.5 mg tablet 12.5 mg PO BID 11/20/17 [History Confirmed 07/17/21] duloxetine 60 mg capsule,delayed release 60 mg PO DAILY 11/20/17 [History Confirmed 07/17/21] insulin detemir U-100 100 unit/mL (3 mL) subcutaneous pen 26 units SUB-Q QHS 11/20/17 [History Confirmed 07/17/21] oxycodone 10 mg tablet 10 mg PO TID PRN 11/20/17 [History Confirmed 07/17/21] albuterol sulfate 90 mcg/actuation aerosol inhaler 2 puff INHALATION Q6H PRN 11/24/17 [History Confirmed 07/17/21] fluticasone 250 mcg-salmeterol 50 mcg/dose blistr powdr for inhalation (Advair Diskus) 1 inh INHALATION Q12H PRN 11/24/17 [History Confirmed 07/17/21] omeprazole magnesium 20 mg tablet,delayed release (Prilosec OTC) 40 mg PO DAILY 11/24/17 [History Confirmed 07/17/21] cholecalciferol (vitamin D3) 25 mcg (1,000 unit) capsule (Vitamin D3) 1,000 unitPO DAILY 04/13/19 [History Confirmed 07/17/21] metformin 500 mg tablet,extended release 24 hr 500 mg PO BID 03/05/20 [History Confirmed 07/17/21] ondansetron HCl 8 mg tablet (Zofran) 8 mg PO TID PRN #30 tab 04/02/20 [Rx Confirmed 07/17/21] insulin NPH isoph U-100 human 100 unit/mL subcutaneous suspension (Novolin N NPHU-100 Insulin isophane) 20 unit SUBCUT DIRECTED 05/21/20 [History Confirmed 07/17/21] nystatin 100,000 unit/mL oral suspension 100,000 unit BUCCAL DAILY 90 Days #500 ml 06/18/20 [Rx Confirmed 07/17/21] semaglutide (Ozempic) 0.5 mg SUBCUT QWEEK 09/24/20 [History Confirmed 07/17/21] cyanocobalamin (vitamin B-12) 5,000 mcg capsule 5,000 mcg PO QWEEK 10/29/20 [History Confirmed 07/17/21] azithromycin 250 mg tablet (Zithromax Z-Emiliano) 250 mg PO DAILY 11/26/20 [History Confirmed 07/17/21] dexamethasone 4 mg tablet 20 mg PO ONCE 90 Days #60 tab 11/29/20 [Rx Confirmed 07/17/21] vitamin B12 0.5 mg-folic acid 1 mg tablet 1 tab PO DAILY 03/28/21 [History Confirmed 07/17/21] potassium chloride 10 mEq capsule,extended release 10 meq PO DAILY #30 cap 06/05/21 [Rx Confirmed 07/17/21] ondansetron 8 mg disintegrating tablet 8 mg PO Q8H PRN #30 tab 06/18/21 [Rx Confirmed 07/17/21] acyclovir 400 mg tablet 400 mg PO BID 90 Days #180 tab 07/03/21 [Rx Confirmed 07/17/21] diazepam 5 mg tablet (Valium) 5 mg PO DIRECTED 1 Days #2 tab 07/17/21 [Rx] Objective - Height/Weight Height/Weight: Height 5 ft 2.99 in Weight 88.904 kg BSA for Today's Weight 2.00 - Vital Signs Vital Signs: 07/17/21 09:42 Temperature 98.0 F Pulse Rate [Left Brachial] 82 Respiratory Rate 20 Blood Pressure [Left Arm] 126/75 02 Sat by Pulse Oximetry 95 - Pain Generalized Pain Intensity: 3 Bilateral Hip Pain Intensity: 5 Left Hip Pain Intensity: 4 Lower Back Pain Intensity: 7 Left Neck Pain Intensity: 4 Back Pain Intensity: 0 Right Thigh Pain Intensity: 9 Bilateral Leg Pain Intensity: 5 Bilateral Shoulder Pain Intensity: 6 Left index finger Pain Intensity: 4 - Emotional Needs Assessment Emotional Needs Assessment: Emotional Needs Identified? No Results - Labs Labs: Diagram of Most Recent CBC and CMP 07/05/21 10:50 07/05/21 10:50 Labs - Last 7 Days 07/05/21 10:55: Ur Random Albumin 41.7, U Random Total Protein 14.0, U Bytzy-5-Tjwlygbt (%) 2.2, U Random u-3-Dsempupx % 18.1, U Random b-Globulin % 27.3, U Random Gamma Glob % 10.6, U Random M-Jaspal(%) Comment:, Urine Random PEP Note - Impressions Date of Service: 07/17/21 XR/XR knee RT 2V: multiple myeloma patient severe hippain ([id number]) XR/XR hip RT min 2V(w/wo pelvis)*: multiple myeloma patient severehip pain ([id number]) XR/XR femur RT 2V*: patient with Myeloma [...] dictated by: Jorge Duffy M.D.07/17/2021 1:29 PM Assessment and Plan - TNM Staging Staging: Stage IIIA Multiple Myeloma (Durie Boring criteria) (1) Multiple myeloma Qualifiers: Multiple myeloma remission status: not in remission Qualified Code(s): C90.00 - Multiple myeloma not having achieved remission Mojgan 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 She has high risk cytogenetics and I [facility]. Her persistent thrombocytopenia made her ineligible for any clinical trials, and preventedher from receiving local pain procedures given her chronic low back pain. --05/2017 PET/CT images and reports performed for staging to exclude bone involvement with myeloma. 2 indeterminate areas of uptake thought to be degenerative arthritis vs early bone findings of myeloma (right parietooccipitalarea and upper sternum). She has remained asymptomatic [...] showed no lytic lesions and she has stableshoulder, hand, and right SI joint pain (although likely due to fibromyalgia. --Prior osseous survey 07/01/2019 showed osteopenia but no compression fractures or lytic lesions were identified. She had no significant change in myeloma labs(mild increase of urine M-spike, kappa/lambda ratio, and normal serum M- spike and quant immunoglobulins). Urine protein still undetectable, therefore will continue surveillance every 6 months with the same labs--no hypercalcemia, renaldysfunction (or proteinuria), anemia, or new bone symptoms. [...] proteins with urine M spike 43.1 but totalprotein 34.4, with no reported urine creatinine. --We deferred immunosuppressive chemotherapy for about 1 month due to control ofsymptoms after palliative radiation and concern of potential peak of COVID-19 inlate January early March. --She presented for follow-up 03/05/2020 and we discussed potential therapy options (with son available by phone). --I discussed her case with Dr. Piter Benavidez of malignant hematology, possibly presenting the patient in hematology tumor board at [facility]. --Infusion port placed 03/22/2020 at [facility] due to low platelets. No complications. --03/12/2020: Myeloma labs with no serum M-spike, + urine M spike 22.2mg/24h (14%). Immunofixation IgA lambda specificity. IgA normal 227, Serum kappa 20.6, serum lambda 516.7, Free kappa/lambda ratio0.04. Normal renal function and calcium. Lower ANC 600 and platelets 40,000 --04/10/2020: Started cycle 1 day 1 of weekly dexamethasone 20 mg IV (careful to watch blood sugars with diabetes and known hepatic dysfunction), decreased dose of bortezomib 0.7 mg/m? twice weekly for2 weeks on 1 week off (due to known liver disease and thrombocytopenia), and daratumumab 8mg/kg D1,D2 IV first week, then 16 mg/kg IV weekly and we may consider Revlimid as a 4th medication if needed(deferred for worsening neutropenia and thrombocytopenia--I am reluctant to add this therapy initially). --She has baseline cirrhosis with chronic thrombocytopenia and I am attempting to treat her with the least myelosuppressive regimen after 2 month deferral of therapy due to COVID-19 pandemic noted above. Patient does not have any currentsigns or symptoms of infection. On Acyclovir 400mg bid for VZV prophylaxis. --We requested prior liver biopsy from [facility] for review of the extentof her known liver dysfunction. It is doubtful she will be a high-dose chemotherapy/peripheral blood stem cell transplant candidate given her history of cirrhosis and chronic cytopenias. --04/19/2020 toxicity follow-up: Other than daratumumab reaction with cycle 1 day1 and hyperglycemiasecondary to dexamethasone, she has not had any other new toxicities of therapy thrombocytopenia remains in the 40,000 range without bleeding and we will continue treating with 50% dose Velcade as long as she doesnot have worsening hepatic function, thrombocytopenia, or neuropathy. I am sending herto diabetes management clinic for her hyperglycemia to adjust her insulin regimen (patient has previously discussed this with her primary physician who agrees). --05/21/2020: Tolerating weekly daratumumab, bortezomib, dexamethasone well. Diabetes management improving. Thrombocytopenia stable in 50,000 range without bleeding. --05/03/2020: Myeloma labs with no serum M-spike (not performed), + urine M spike now resolved. Immunofixation IgA lambda specificity. IgA normal 112, Serum kappa 7.8, serum lambda 41.3, Free kappa/lambda ratio 0.19 (improved). Normal renal function and calcium. Mildly improved ANC 900 and platelets 54,000 --06/18/2020: No new symptoms on weekly daratumumab, bortezomib, dexamethasone after dose reductionsof bortezomib for cytopenias and neuropathy. Myeloma labsshow lower IgA 72. M-spike IgG kappa afterDaratumumab--previously IgA lambda. Lambda light chain has decreased from 516 to 41.3 to now 18.5 with normalizationof K/L ratio. --08/13/2020: Improving thrombocytopenia (79,000) and decreasing M-spike, IgA and lambda light chain. Next myeloma f/u with labs in 6 weeks, sooner prn. --09/24/2020: Now completing cycle 8 Daratumumab/Velcade/Dexamethasone with decreased M-spike, low IgA and normalization of lambda light chain. Platelets stable at 60-70,000 without bleeding. With cycle 9 onward 10/02/2020, she will maintain once monthly Daratumumab only (stop Velcade and Dexamethasone). F/u every 2 months. --11/26/2020: Stable M-spike and K/L ratio on Daratumumab maintenance. Restaging F-18 PET/CT orderedfor 12/2020 and will review at next f/u. No signs/symptoms of infection rather than recent hematuria/dysuria--sending UA andCx if indicated. Leukopenia and thrombocytopenia relatively stable on current therapy. --01/21/2021: One year f/u F18 PET/CT with stable FDG avidity, monoclonal labs (SPEP, Quant Igs, kappa/lambda ratio) all pending. Stable CBC and CMP. Persistent pain left hand 2nd MCP joint--increaseduptake on PET/CT but no lesion on left hand xray from 11/2020. Sending for ortho evaluation. For nowcontinue once monthly Daratumumab. F/u with myeloma labs and exam in 2 months, sooner prn. --03/28/2021: 2 month followup visit--worsening neck/upper back/shoulder pain. Ordered thoracic spine MRI and will contact patient with results. Otherwise stable CBC, CMP and slowly improved monoclonal gammopathy (rising IgG to now normal). Next PET/CT F18 scheduled late April and I will f/u at that time. --04/24/2021: 1 month followup--no spinal stenosis on thoracic MRI and stable PET/CT bony uptake. Now worsening left sternocleidomastoid pain. Sending for cervical MRI and setting up bone marrow biopsy in the next 1-2 weeks due to declining platelets and rising lambda light chains past 2 visits. 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 Hypocellular with recent worseningplatelets without bleeding--will recheck B12, folate, and ferritin. [...] sent for plain films of the hip femurand knee showing degenerative changes but no acute [...] progression although she still has slow rise inlambda light chain and platelet count remains in the 50,000 range. She has increased bruising but no bleeding. For now we will continue daratumumab and follow closely in 6 weeks with monoclonal gammopathy labs and to review recommendations from orthopedic surgery. This is a high complexity visit over 45 minutes for review of symptoms, labs, today's imaging and coordination of follow-up with orthopedic surgery. (2) Acute right hip pain Given her severe hip pain and known myeloma with uptake on PET/CT, she was sent for imaging that did not show acute fracture. She is nonweightbearing and will follow up with orthopedic surgery after right femur MRI as noted above. She maintains follow-up with palliative medicine for pain medicationand she will continue oxycodone which is effective. (3) Degenerative cervical spinal stenosis Pain in neck/upper thoracic pain and left shoulder pain. MRI thoracic spine with no spinal compression--she declined pain clinic referral for injection but sent for cervical MRI due to worsening leftneck pain--mild degenerative diseaseon MRI. Symptoms stable with no deficits on exam. Continue painmanagement with palliative medicine. 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 I previously reviewed her outpatient records from [facility] [place], including review of notes, laboratories, and prior bone marrow biopsy 13 years ago. 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 Most recent platelet count is relatively stable at 54,000 but no clinical bleeding. She waspreviously referred to weight reduction clinic and may have slow improvement of steatohepatitis with lifestyle modification. Unless she has active bleeding or planned surgery, we will continue observation during treatment of active myelomato commence next month as noted above. --Agree with recommendation for EGD surveillance for varices (last was 09/2018--negative). This will be deferred during current COVID-19 epidemic. --Prior vitamin B12 and folic acid are normal, for known history of neuropathy. As noted above, I reviewed the negative M spike on serum protein electrophoresiswith immunofixation, but positive for Bence Murray protein on urine protein electrophoresis. Her Quantitative immunoglobulins IgG, IgA, and I gM were all within normal limits, however her serum kappa lambda light chain analysis showeda predominance of lambda light chains. --Previous labs for lupus anticoagulant with DRVVT, hexagonal phase phospholipid, anti-cardiolipin IgG and IgA, and beta 2 glycoprotein IgG and IgA were within normal limits. --Evaluated in ED November 2019 for epistaxis which resolved. Platelet count wasstable at 12/28/2019 follow-up. She continues surveillance with liver clinic at [facility] and I will continue to follow her every 6 months, sooner if newbleeding issues arise. --04/02/2020: We reviewed informed consent for Daratumumab/Velcade/Dexamethasone for active myeloma therapy. I requested prior liver biopsy results and notes from liver clinic at [facility]. Platelet count in 40,000 range but patient has had no active bleeding following infusion port placement 03/22/2020. --08/13/2020: Cycle 6 week 2 toxicity check with improved thrombocytopenia 79,000 range with no bleeding. We will continue current dosing with Velcade 0.7mg/m2 sq (now once weekly), dexamethasone 20 mg weekly, and full dose daratumumab with close follow-up of liver function and platelet counts. --09/24/2020, 01/21/2021, 03/28/2021: Platelets stable 60-70,000 with no new toxicities, started Daratumumab maintenance 10/02/2020. --04/24/2021: Platelets now down to 57,000 with rising lambda light chains. Will eval with repeat bone marrow biopsy due to nonsecretory myeloma. --05/24/2021: Bone marrow hypocellular without significant myeloma progression. Will check B12/folate stores, continue Daratumumab maintenance. 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 She wasreferred to [facility] to attempt weight reduction through diet and exercise that may prevent further fatty infiltration that may further impairher liver function. [facility] hepatology discussed liver transplant but sheis likely no longer a candidate for this given active myeloma. We chose least hepatotoxic regimen for treatment of her active myeloma with 50% dose reduction of Velcade. Liver function remained stable since start of therapy 04/10/2020. --Requested prior liver biopsy and [facility] liver clinic records. (6) Neutropenia, unspecified Qualifiers: Neutropenia type: unspecified Qualified Code(s): D70.9 - Neutropenia, unspecified Previous worsening neutropenia without infection (prior WBC 2000, ANC 600)--thought to be related to new diagnosis of active myeloma and no nutritional deficiency. Treating with less myelosuppressiveregimen (Velcade rather than Revlimid) for myeloma. Of note no dysplastic changes were noted on bone marrow biopsy. Current white blood cell count was stable with absolute neutrophil count had improved to [id number]. We will continue to follow closely on current therapy and continue acyclovir prophylaxis. (7) Diabetes mellitus Qualifiers: Diabetes mellitus type: type 2 Diabetes mellitus complication status: without complication Suboptimal diabetes control with recent Hemoglobin A1c 8.4--notes recent adjustment in her diabetesregimen by her primary physician. --04/19/2020 follow-up: She notes that since starting weekly dexamethasone therapy at 20mg dose blood sugars were as high as 400. She agreed to consultation with diabetes management clinic and likely requires supplemental insulin doses on steroid days. --09/24/2020, 01/21/2021, 03/28/2021: Now improved diabetes control since following in diabetes management clinic. Should continue to improve off Dexamethasone weekly after 10/02/2020. Continue followupin diabetes management clinic. (8) Obesity Qualifiers: Body mass index: BMI 34.0-34.9 KAPADIA--continue f/u in weight reduction clinic. She is slowly losing weight overthe past 6 months. Defer to PCM. (9) Cancer-related pain Improved symptoms after palliative radiation to bilateral hips--one dose 02/07/2020. Will continue tofollow on myeloma chemotherapy. Extensive, but stable bone involvement on F-18 PET/CT 12/2020 and 04/2021. Recent increased leftneck and shoulder pain. Increased oxycodone dosing to three times daily, no unusual right hip pain is noted above--followed by palliative medicine. (10) Encounter for antineoplastic immunotherapy Tolerating Daratumumab maintenance well without significant toxicities. Bone marrow biopsy did not reveal indication for change in therapy. She may require additional palliative radiation if no clearetiology found by orthopedic surgeryfor her increased right hip/femur pain. - Chemo Plan Chemo Plan (Dose, Rate, Freq): Palliative radiation to 02/07/2020, deferred active therapy for myeloma for 8 weeks due to current COVID-19 epidemic. Discussed at [facility] Hematology Tumor Board early March to determine optimal regimen given her comorbidities. --04/10/2020: cycle 1, day 1 weekly dexamethasone 20 mg IV (careful to watch bloodsugars with diabetes and known hepatic dysfunction), decreased dose of bortezomib 0.7 mg/m? twice weekly for 2 weeks on1 week off (decreased to once weekly after first cycle due to known liver disease and thrombocytopenia), and daratumumab 8mg/kg D1,D2 IV first week, then 16 mg/kg IV weekly --10/02/2020: Started Daratumumab monthly maintenance 16mg/kg IV (stopped Velcade and Dexamethasone) Goal of Treatment: Palliative - Time with Patient Time Spent with Patient (Follow Up Visit): 45 minutes or more - High complexity for imaging, orthopedic consultation by phone today and coordinating follow-up care with MRI. Coordination of Care & Counseling Time: Greater than 50% of time spent with patient was for coordination of care (as documented) and [id number] counseling of patient and/or family. Dictated By: Fabiola Marinelli MD DD/ [id number] Signed By: <Electronically signed by MD Fabiola Marinelli> 07/17/21 1648 [facility] Work Phone: [phone]) 300-218807-24-2021 Progress note Author Fabiola Marinelli [facility] May 24, 2021 10:48pmNote Date/TimeJuly 2020 10:[address] [place] [address] [place] [address] Hem/Onc Follow Up Note - OP Signed Patient: Mojgan Pérez MR#: [id number] : 1955 Acct:[id number] Age/Sex: 65 / F Type: REG RCR Copies to: MD Yinka Downey MD Katherine M McGraw, VISUAL MERCHANDISER~ Subjective Date/Time of Service: Date of Service: 05/24/2021 Time of Service: 10:16 Chief Complaint: Patient is here for a 3 week follow up to review bone marrow biopsy results HPI: 05/24/2021: Here to followup 05/03/2021 bone marrow biopsy--noted to have decreased cellularity 25%, flow cytometry with 0.2% plasma cells and a 1.5% monoclonal B- cell population. FISH showed 13q and 1qabnormalities but normal cytogenetics. No myelodysplasia seen. I reassured her that recent thrombocytopenia is more likely related to splenic sequestration from liver disease and not worsening myeloma. For now continue current regimen. Will alsorecheck B12, folate, and iron profile with next labs--followup in 2 months with myeloma labs, sooner prn. 04/24/2021: 1 month followup to review PET/CT. Over the past 2 days, she notes episodes of sharp left sided neck pain over sternocleidomastoid muscle and mastoid area. No radiculopathy down left upperextremity. No new side effects of Daratumumab. F18 PET/CT shows largely unchanged diffuse uptake through multiple bony sites in axial and articular skeleton. Lambda light chains risingover past 2 month and decline of platelet count to 57,000 without bleeding. MRIof thoracic spine did not show significant thoracic canal stenosis. Due to worsening neck pain with extensive uptake on F18 PET/CT--we will send for cervical MRI. Palliative medicine has increased Percocet to tid. We will repeat bone marrow biopsy due to rising lambda light chain and falling platelet count to determine if progression of myeloma noted. This will be scheduled in the next 1-2 weeks. 03/28/2021: 2 month followup for multiple myeloma. More recently notes neck andleft shoulder pain. Fatigue and constipation stable. Labs show stable anemia and thrombocytopenia. Serum M-spike now asymmetric gamma (no quantifiable spike). Slowly improving IgG to near normal. [place]/lambda light chain ratio normal with mildly increased lambda light chains. MRI of thoracic spine for evaluation of increasing left shoulder pain. For now we will continue current dosing of Daratumumab and recheck F18 PET/CT for response in late April 2021. 01/21/2021: Mojgan is accompanied by her daughter for 2 month followup--now Daratumumab maintenance. She notes persistent fatigue and recently added as needed laxatives to stool softener for management of constipation. Persistent left hand pain--correlates to an area of bone uptake on PET/CT. Overall F18 PET/CT appears stable with no new areas if FDG avidity (still extensive bone FDGuptake). We reviewed prior plain xrays of left hand from November--she agrees toevaluation by orthopedic surgery (determine if biopsy or steroid injections). M-spike and kappa/lambda light chains pending. CBC (platelets 60-70,000); CMP stable. Will followup in 2 months with exam and labs. 11/26/2020: Mojgan is accompanied by her daughter for 2 month followup--now Daratumumab maintenance. Stable leukopenia/low platelet 70,000. Notes 3 days of hematuria and mild dysuria. Sending UA and possible culture. Otherwise no new bone pain. Blood sugars stable. M-spike and kappa/lambda light chain ratiostable. Next f/u 2 months after one year f/u PET/CT to determine response to therapy. 09/24/2020: Mojgan presents (accompanied by her daughter) for cycle 8, week 2 followup [id number] mg/kg IV weekly, Dexamethasone 20mg weekly, and Velcade 0.7 mg/m? now sq once weekly for every 3-week cycle (21 days). She notes neuropathy symptoms are stable. Tolerating therapy well without fatigue. No bleeding and thrombocytopenia stable in 60-70,0000 range. On 10/02 she will be due for maintenance therapy with Daratumumab alone once per month. I will f/u with her in 2 months with myeloma labs, sooner as needed. Velcade and Dexamethasone will be stopped after 8 cycles. 08/13/2020: Mojgan is here for cycle 6, week 2 (day 14) daratumumab 16 mg/kg weekly, Velcade 0.7 mg/m? now sq once weekly for every 3-week cycle (21 days), and dexamethasone 20 mg weekly. No new symptoms--improving thrombocytopenia to 79,000 and improved leukopenia. 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 Still has improvement of M-spike, IgA normal and decreased lambda light chain and K/L ratio. We discussed that week 25 in Oct she will change to monthly daratumumab with weekly Velcade (1mg/m2) and Dexamethasone. Continue to follow every 6-8 weeks until maintenance schedule. 06/18/2020: Mojgan is here for cycle 3 week 3 (day 21) daratumumab 16 mg/kg weekly, Velcade 0.7 mg/m? now sq once weekly for every 5-week cycle (35 days), and dexamethasone 20 mg weekly. Tolerating well with stable leukopenia and thrombocytopenia. Mild increased symptoms of hand and foot neuropathy, but no limitation in activity. Now following with diabetes management clinic with variable glucosecontrol. We reviewed lower IgA (now M-spike IgG kappa after Daratumumab--previously IgA lambda). Lambda light chain has decreased from 516 to 41.3 to now 18.5 with normalization of K/L ratio. Continue followup myeloma labs in 6 weeks, visit in 8 weeks. 05/21/2020: Mojgan is here for cycle 2 (week 7 overall) daratumumab 16 mg/kg weekly, Velcade 0.7 mg/m? now sq once weekly for every 5-week cycle (35 days), and dexamethasone 20 mg weekly. Tolerating well with stable leukopenia and thrombocytopenia. No significant neuropathy. Noted to have improvement in lambda light chains. No further daratumumab infusion reactions. No infections,stable constipation, pain control improved. No other complaints. Continue monthly f/u with myeloma labs. --Diabetes management--added insulin on dexamethasone days. Hyperglycemia improving. 01/18/2020 (phone followup)--The patient's son was available by phone and her daughter was contactedin a separate phone call as patient presented unaccompanied due to COVID-19 precautions in our clinic during the current epidemic. Bone marrow biopsy results were reviewed as follows from procedure pe rformed 01/26/2020: --Bone marrow biopsy was suboptimal for evaluation. --Increased lambda light chain restricted monoclonal plasma cells (1.9% by flow cytometry, approximately 6% and aspirate count, but 50% by immunohistochemical stains [id number]). Sideroblastic iron present, negative for ring sideroblasts. Peripheral blood smear with mild red blood cell anisocytosis and polychromasia, leukopenia with absolute neutropenia (1000) and thrombocytopenia (54,000) consistent with prior baseline. Note: I discussed the results with Dr. Crook 01/26/2020. Preliminary findings were also discussed with Dr. Cummings 01/27/2020. Morphologic findings, immunohistochemical stains, flow cytometry, and ancillary studies may under represent the extent and severity of disease. The results of FISH myeloma panelwith prognostic markers and cytogenetic analysis are pending. --Given the patient's hip pain and presence of lytic lesions, she meets clinicalcriteria for activemyeloma. Given her hip pain and lytic lesions in weightbearing areas she was offered radiation therapy. She had a limited courseof hypofractionated palliative therapy to bilateral proximal femurs [address] Ahn. We discussed that given the COVID-19 epidemic and absence of othersignificant changes other than bony lesions (normal renal function, normal calcium, stable cytopenias), I would defer active therapy for myeloma for 4 to 6 weeks. Since she has significant history ofliver disease I will discuss her case with Dr. Piter Benavidez at [facility] malignant hematology for optimal regimen. The patient is not a transplant candidate given her nonalcoholic steatohepatitis and chronic thrombocytopenia but may be a candidate for either doublet therapy (Revlimid/dexamethasone) or triplet therapy with either Velcade/Revlimid/dexamethasone or daratumumab/Revlimid/dexamethasone. --02/03/2020: Mojgan presented unaccompanied for follow-up of bone marrow aspiration and biopsy performed by Dr. 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 The patient had been noting increased left hip pain over the past several months andplain films of the pelvis and bilateral femurs did show subtle lucencies in the bilateral proximal femurs corresponding to PET/CT findings but no other additional sclerotic lesions identified. No pathologic fractures were seen. --03/05/2020: Mojgan notes improvement of bilateral hip pain since radiation. No other changes in medical history in the past month--no infections, normal renal function, no hypercalcemia. Stable platelet counts without bleeding. Shewas given written literature regarding Dexamethasone, Velcade (thatwould be dose reduced to 0.7mg/m2 twice weekly), weekly Daratumumab and Revlimid, but I will defer decision of which regimen to use until discussion in malignant hematology tumor board. Also referring for infusion port placement prior to initiating therapy. Sign informed consent prior to initiating therapy. --Discussed with Dr. Benavidez who favors Daratumumab combination--will request prior liver biopsy and records from [facility] liver clinic. The patient and her son (by telephone) expressed understanding and will follow- up as directed in 2 weeks for consent and likely start of therapy. --04/02/2020: Mojgan presents after infusion port placement at [facility] by interventional radiology due to platelet count 40,000--she had increased bruising at site post procedure, but this has completely resolved. Her hip painis well controlled since completion of palliative radiation and no newareas of pain. She has previously reviewed information regarding Daratumumab (first dosesplit 8mg/kg IV D1,D2, then if well tolerated 16mg/kg IV weekly), Velcade at about 50% dose (for liver dysfunction) 0.7mg/m2 D1,D4,D8, D11, and [id number] IV weekly--repeat for every 3 week cycles 1st 3 cycles. She will take chemo class and likely start therapy within 2 weeks with toxicity visit in 3 weeks. Today we reviewed chemotherapy counseling for Daratumumab, Velcade, and Dexamethasone. Common toxicities were reviewed to include infusion reaction including rash/dyspnea/wheezing, myelosuppression, fatigue, nausea, vomiting, constipation, diarrhea, mouth sores, and alopecia. Other toxicities may in cludepneumonitis, neurologic, thromboembolism, hyperglycemia, hepatic and renal toxicities. The patient signed informed consent and will follow-up as directed. --04/19/2020: Mojgan is here for cycle 1 week 2 daratumumab 16 mg/kg weekly, Velcade 0.7 mg/m? twice weekly for first 2 weeks of every 3-week cycle, and dexamethasone 20 mg weekly. She did have an infusion reaction with first daratumumab with dyspnea and flushing but this improved after first dose and shehas not had recurrent infusion reactions. We have continued Velcade despite platelet counts in the 40,000 range without bleeding as we know that her baseline platelet counts remain in this range and she has not had any significant change from her baseline. Dexamethasone has caused hyperglycemia with blood sugars up to 400 and we are referring to diabetes management clinic. Otherwise she denies any significant nausea, emesis, fever, chills, night sweats, constipation, diarrhea, rash, mouthsores, or alopecia. She has not hadany change of baseline neuropathy. Liver function tests remain stable. She notes that her hip pain is well controlled since prior palliative radiation and she saw radiation oncology earlier this week with no new recommendations. I will send her myeloma labs including serum and urine protein electrophoresis, quantitative immunoglobulins, and serum kappa/lambda light chains in 2 weeks andfollow-up with her in 3 weeks. She may be seen sooner if new issues arise. --- This is a 65-year-old lady on chronic disability has a history of arthritis, diabetes mellitus, hypertension, COPD, GERD, and fibromyalgia who was previouslyfollowed [facility] for chronic mild to moderate thrombocytopenia. She states that she was followed with Dr. Kumari prior to his senior care and was told that she had an elevated protein level as well as thrombocytopenia but never had clinical bleeding. She is 4 para4 without complicationsand was never told that she was thrombocytopenic while . She is had multiple prior surgicalprocedures without any clinical bleeding. She had been recommended for a pain procedure with Dr. Wilson but he declined to do the procedure because her platelet count was less than 100,000. For this reason she received 2 platelet transfusions, with little improvement of her platelet count and her second transfusion resulted in throat tightening due to allergy to platelets . She has never beentreated with steroids and has never been told that she has immune thrombocytopenia. She has mild leukopenia with relative neutropenia, absolute neutrophil count of 400-800 and mild lymphocytosis. Hemoglobin is normal. She has not had any bright red blood per rectum or epistaxis. She has no history ofbleeding within the family however does have a mother and sister diagnosed with colon cancer, a brother diagnosed with lung cancer, and another sister diagnosedwith breast cancer. She had prior pain in the right hand mainly at the first MCP joint with some associated swelling and right foot pain and was evaluated by podiatry. She was told that her blood tests were negative forgout. She had screening with MALLORY, CCP, and rheumatoid factor all of which were negative. She says that she previously saw Dr. Petersen for cirrhosis but did not know of any specific therapy. We reviewed these findings from her liver ultrasound ordered by Dr. Benavidez Summer 2016. Initial consultation with me March 16, 2017. --The patient has been followed by me for some time for diagnosis of smoldering myeloma with a prior bone marrow biopsy May 2017 showing 15% plasma cells but the patient remained asymptomatic without bone pain or other CRAB criteria for therapy. She is also noted to have an ascending aortic aneurysm and has chronicliver disease with cirrhosis secondary to nonalcoholic steatohepatitis. She haschronic thrombocytopenia without bleeding ranging from 50-100,000 this is felt to be due to sequestration from her nonalcoholic steatohepatitis. She was previously on a liver transplant list but was recently notified that she is no longer a candidate for liver transplant. She has had chronic pain from f ibromyalgia but noted increasing bilateral hip and upper thigh pain over the last 6 months. She also is followed for EGD/colonoscopy with last documented procedure 09/21/2018: 1. Normal EGD, 2. Mild sigmoid diverticulosis, 3. Internal hemorrhoids, grade 2, 4. Anal fissure with active bleeding cauterized by bipolar cautery Bone osseous survey in June 2019 showed osteopenia and degenerative changes but no lytic or blastic lesion. Patient had an F-18 PET scan 01/02/2020 which showed multiple areas of involvementof bones with increased SUV activity. She was contacted with these results by phone and I recommended bone marrow aspirate and biopsy for assessment and analysis. Her prior labs were reviewed. Her SPEP does not show anymonoclonal gammopathy. On VAHID there appears to be a trace of monoclonal gammopathy. Free light chain ratio is less than 100. There is no evidence of renal sufficiency. Patient is not anemic. She doeshave some abnormal areas on bone scan. - Summary of Therapies Summary of Therapies: 1. 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 2. She underwent a single dose of palliative radiation therapy to bilateral hips, receiving 800 cGyto right and left hip in 1 fraction in separate vaz (with a single isocenter). The treatments were given with AP/PA vaz [id number] MV photons and MLC blocks. 3. Deferred active therapy for myeloma 2 months given COVID-19 epidemic with increased risk of myelosuppression and viral transmission of contacts. --Follow-up 03/05/2020 I discussed her case with Dr. Piter Benavidez at malignant hematology. --Given her significant hepatic dysfunction, I presented her case at malignant hematology tumor board to discuss optimal therapy. 4. Cycle 1 day 1 04/10/2020: Dose reduced Velcade 0.7 mg/m? twice weekly (day 1,day 4, day 8, day 11)every 3 weeks with dexamethasone 20 mg weekly and daratumumab 16 mg/kg weekly of each 21-day cycle.After first week, Velcade decreased to 0.7mg sq weekly due to thrombocytopenia. --We will need to watch liver function, platelet count, and neuropathy closely on Velcade. 5. Cycle 9 day 1 10/02/2020: Daratumumab 16mg/kg once monthly maintenance therapy until progression. ROS Details: All systems reviewed & no additional complaints except as documented Subjective/ROS - Narrative: Constitutional: No Chills, No Diaphoresis, Stable Fatigue, No Fever, No Malaise, No Night Sweats, No Weakness, No Weight Gain, No Weight Loss Gastrointestinal: No Abdominal Pain, No Black Stool, No Bloating, No Bloody Stool, No Constipation,No Diarrhea, No Dysphagia, No Hematemesis, No Nausea, NoPostprandial Pain, No Rectal Bleeding, No Rectal Pain, No Vomiting, Other (chronic gastroesophageal reflux stable) --No jaundice or ascites but patient has longstanding nonalcoholic steatohepatitis with cirrhosis, previously followed by [facility] gastroenterology. Cardiovascular: No Chest Pain, No Edema, No Palpitations, No Syncope Genitourinary: No Discharge, No Dysuria, No Flank Pain, Frequency (chronic andunchanged), Resolved Hematuria, No Incontinence, No Nocturia, No Urgency, No Urinary Retention Musculoskeletal: + left shoulder and neck pain as per HPI (no thoracic cord compression, but sending for cervical MRI). Improvement of prior bilateral hip/thigh pain since radiation; positive for intermittent lumbar back pain, No Chest Wall Tenderness, Improvement of prior Joint Pain, Muscle Stiffness, Myalgia (history of fibromyalgia), --unremarkable skeletal survey June 2019. 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 12/2020: F-18 PET/CT stable. 04/2021 F-18 PET/CT stable. HEENT: No Blurred Vision, No Discharge, No Ear Pain, No Epistaxis, No Rhinorrhea, No Sore Throat--patient was seen in emergency department November 2019 with persistent epistaxis. She was treated withnasal clip and packing andwas advised to continue Afrin. No recurrent bleeding. Respiratory: No Cough, No Hemoptysis, mild Shortness of Breath (chronic and unchanged due to COPD),No Sputum, No Wheezing--shortness of breath with daratumumab reaction dose 1 04/10/2020 (given a split dose over 2 days). No recurrent reaction since first dose. Neurological: No Dizziness, Stable Numbness/Tingling (reports long-standing bilateral foot numbness--unchanged since starting low-dose Velcade 04/10/2020), NoPre-existing Deficit (no history of stroke or seizure), intermittent headache Hematologic/Lymphatic: No significant bleeding thrombocytopenia from sequestration, Bruises Easily,No Enlarged Lymph Nodes, Other (reports allergyto prior platelet transfusion) Endocrine: Excessive Sweating (hot flashes, postmenopausal) Flushing, No Intolerance to Cold, Intolerance to Heat Psychiatric: No Depressed Mood, No Insomnia Integumentary: No Jaundice, No Lesions, No Rash Allergic/Immunology: No Pruritus PMFSH - History Attestation statement: The following information was validated with the patient. Source: Old Records Reviewed - Medical History Medical History: Medical History (Last Reviewed 05/24/21 @ 22:32 by Fabiola Marinelli MD) Aortic aneurysm COPD (chronic obstructive pulmonary disease) Diabetes Fibromyalgia GERD (gastroesophageal reflux disease) Iron deficiency Neutropenia Smoldering multiple myeloma (SMM) Smoldering myeloma Temporary low platelet count - Surgical History Surgical History: Surgical History (Last Reviewed 05/24/21 @ 22:32 by Fabiola Marinelli MD) H/O: hysterectomy History of appendectomy History of cholecystectomy - Social History Smoking Status: Former smoker Tobacco Type: cigarettes Substance Use Type: None Social History Comments: Lives with son a juli Home Medications & Allergies Allergies latex Allergy (Verified 05/24/21 10:07) Unknown Reaction moxifloxacin [From Avelox] Allergy (Verified 05/24/21 10:07) Hives Quinolones Allergy (Verified 05/24/21 10:07) Unknown Reaction tetracycline Allergy (Verified 05/24/21 10:07) Unknown Reaction Home Medications carvedilol 12.5 mg tablet 12.5 mg PO BID 11/20/17 [History Confirmed 05/24/21] duloxetine 60 mg capsule,delayed release 60 mg PO DAILY 11/20/17 [History Confirmed 05/24/21] insulin detemir U-100 100 unit/mL (3 mL) subcutaneous pen 26 units SUB-Q QHS 11/20/17 [History Confirmed 05/24/21] oxycodone 10 mg tablet 10 mg PO TID PRN 11/20/17 [History Confirmed 05/24/21] albuterol sulfate 90 mcg/actuation aerosol inhaler 2 puff INHALATION Q6H PRN 11/24/17 [History Confirmed 05/24/21] fluticasone 250 mcg-salmeterol 50 mcg/dose blistr powdr for inhalation (Advair Diskus) 1 inh INHALATION Q12H PRN 11/24/17 [History Confirmed 05/24/21] omeprazole magnesium 20 mg tablet,delayed release (Prilosec OTC) 40 mg PO DAILY 11/24/17 [History Confirmed 05/24/21] cholecalciferol (vitamin D3) 25 mcg (1,000 unit) capsule (Vitamin D3) 1,000 unitPO DAILY 04/13/19 [History Confirmed 05/24/21] metformin 500 mg tablet,extended release 24 hr 500 mg PO BID 03/05/20 [History Confirmed 05/24/21] ondansetron HCl 8 mg tablet (Zofran) 8 mg PO TID PRN #30 tab 04/02/20 [Rx Confirmed 05/24/21] insulin NPH isoph U-100 human 100 unit/mL subcutaneous suspension (Novolin N NPHU-100 Insulin isophane) 20 unit SUBCUT DIRECTED 05/21/20 [History Confirmed 05/24/21] nystatin 100,000 unit/mL oral suspension 100,000 unit BUCCAL DAILY 90 Days #500 ml 06/18/20 [Rx Confirmed 05/24/21] semaglutide (Ozempic) 0.5 mg SUBCUT QWEEK 09/24/20 [History Confirmed 05/24/21] cyanocobalamin (vitamin B-12) 5,000 mcg capsule 5,000 mcg PO QWEEK 10/29/20 [History Confirmed 05/24/21] azithromycin 250 mg tablet (Zithromax Z-Emiliano) 250 mg PO DAILY 11/26/20 [History Confirmed 05/24/21] dexamethasone 4 mg tablet 20 mg PO ONCE 90 Days #60 tab 11/29/20 [Rx Confirmed 05/24/21] acyclovir 400 mg tablet 400 mg PO BID 90 Days #180 tab 01/10/21 [Rx Confirmed 05/24/21] potassium chloride 10 mEq capsule,extended release 10 meq PO DAILY #30 cap 03/11/21 [Rx Confirmed 05/24/21] vitamin B12 0.5 mg-folic acid 1 mg tablet 1 tab PO DAILY 03/28/21 [History Confirmed 05/24/21] diazepam 5 mg tablet (Valium) 5 mg PO DIRECTED 1 Days #2 tab 04/24/21 [Rx Confirmed 05/24/21] Objective - Height/Weight Height/Weight: Height 5 ft 2.99 in Weight 92.805 kg BSA for Today's Weight 2.03 - Vital Signs Vital Signs: 05/24/21 10:07 Temperature 98 F Pulse Rate [Left Brachial] 84 Respiratory Rate 20 Blood Pressure [Left Arm] 120/80 02 Sat by Pulse Oximetry 96 - Pain Generalized Pain Intensity: 3 Bilateral Hip Pain Intensity: 5 Left Hip Pain Intensity: 4 Lower Back Pain Intensity: 7 Left Neck Pain Intensity: 4 Back Pain Intensity: 5 Bilateral Leg Pain Intensity: 5 Bilateral Shoulder Pain Intensity: 6 Left index finger Pain Intensity: 4 - Emotional Needs Assessment Emotional Needs Assessment: Emotional Needs Identified? No Physical Exam Narrative: Patient is alert and oriented x3. HEAD / FACE: Normocephalic. No tenderness to palpation over scalp, no sinus tenderness to palpation. EYES: Pupils are equal and reactive to light. Conjunctivae and lids are benign in appearance. Ocular movement intact. EARS: Hearing grossly intact. NEUROLOGICAL: Alert and oriented. Cranial nerves intact. No gross motor or sensory deficits, patient ambulates unassisted. PSYCHIATRIC: No anxiety or evidence of depression. See exam from 04/24/2021 followup--here for bone marrow biopsy review only. NOSE / MOUTH / THROAT: Nose, mouth, tongue and oropharynx exam without visible lesion. NECK / THYROID: Neck is with moderate limitation of range of motion--tenderness over left sternocleidomastoid and mastoid bone. No cervical adenopathy on exam. Thyroid is symmetrical, without thyromegaly, masses or palpable nodules. LYMPHATIC: No palpable cervical, supraclavicular, axillary, or inguinal adenopathy. RESPIRATORY: Normal inspection. Lungs clear to auscultation and percussion. No wheezing, rales, rhonchi or rubs. Normal effort. Right chest wall infusion portwithout erythema. CARDIOVASCULAR: Regular rate and rhythm. No murmurs, gallops, or rubs. VASCULAR: Carotid, radial, femoral and pedal pulses present bilaterally. No bruits. ABDOMEN: Bowel sounds normoactive. Soft, nontender and non-distended. No hepatosplenomegaly. No masses. GENITOURINARY: No CVA tenderness. No suprapubic fullness or tenderness. No groinadenopathy. No evidence of hernias. INTEGUMENTARY: The skin is unremarkable. No rashes. No suspicious lesions. No bruising or petechiaenoted. BACK / SPINE: Mild tenderness cervical/upper thoracic spine without step off deformity. No lumbar tenderness. MUSCULOSKELETAL: Normal musculature, decreased ROM left hand grasp, swelling andTTP over left indexMTP joint, no crepitus. EXTREMITIES: 1+ bilateral leg edema. No cyanosis or clubbing. No Destini sign. - ECOG Performance Status ECOG Score: 1 Results - Labs Labs: Diagram of Most Recent CBC and CMP 05/13/21 14:19 05/13/21 14:19 - Impressions MRI cervical spine 04/26/2021. CLINICAL DATA: Neck [...] No other canal stenosis is seen. No spinalcord compression is visualized. No spinal cord signal abnormality or abnormal contrastenhancement is noted. No significant neural foraminal narrowing is identified on the right or left.No suspicious bony signal abnormality is seen. The paraspinal soft tissues appear unremarkable. MR/MR cervical spine wo/w con IMPRESSION: 1. Discovertebral degenerative changes and posterior disc bulging. 2. Mild central spinal canal stenosis at C5-C6. 3. No significant neural foraminal narrowing. Impression dictated by: Mansoor Vaca Jr., M.D.04/27/2021 9:23 AM Assessment and Plan - TNM Staging Staging: Stage IIIA Multiple Myeloma (Durie Boring criteria) (1) Multiple myeloma Qualifiers: Multiple myeloma remission status: not in remission Qualified Code(s): C90.00 - Multiple myeloma not having achieved remission Mojgan 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 She has high risk cytogenetics and I [facility] Her persistent thrombocytopenia made her ineligible for any clinical trials, and preventedher from receiving local pain procedures given her chronic low back pain. --05/2017 PET/CT images and reports performed for staging to exclude bone involvement with myeloma. 2 indeterminate areas of uptake thought to be degenerative arthritis vs early bone findings of myeloma (right parietooccipitalarea and upper sternum). She has remained asymptomatic [...] showed no lytic lesions and she has stableshoulder, hand, and right SI joint pain (although likely due to fibromyalgia. --Prior osseous survey 07/01/2019 showed osteopenia but no compression fractures or lytic lesions were identified. She had no significant change in myeloma labs(mild increase of urine M-spike, kappa/lambda ratio, and normal serum M- spike and quant immunoglobulins). Urine protein still undetectable, therefore will continue surveillance every 6 months with the same labs--no hypercalcemia, renaldysfunction (or proteinuria), anemia, or new bone symptoms. --Due to COVID- epidemic, her 6-month follow-up was performed by [...] proteins with urine M spike 43.1 but totalprotein 34.4, with no reported urine creatinine. --We deferred immunosuppressive chemotherapy for about 1 month due to control ofsymptoms after palliative radiation and concern of potential peak of COVID-19 inlate January early March. --She presented for follow-up 03/05/2020 and we discussed potential therapy options (with son available by phone). --I discussed her case with Dr. Piter Benavidez of malignant hematology, possibly presenting the patient in hematology tumor board at [facility]. --Infusion port placed 03/22/2020 at [facility] due to low platelets. No complications. --03/12/2020: Myeloma labs with no serum M-spike, + urine M spike 22.2mg/24h (14%). Immunofixation IgA lambda specificity. IgA normal 227, Serum kappa 20.6, serum lambda 516.7, Free kappa/lambda ratio0.04. Normal renal function and calcium. Lower ANC 600 and platelets 40,000 --04/10/2020: Started cycle 1 day 1 of weekly dexamethasone 20 mg IV (careful to watch blood sugars with diabetes and known hepatic dysfunction), decreased dose of bortezomib 0.7 mg/m? twice weekly for2 weeks on 1 week off (due to known liver disease and thrombocytopenia), and daratumumab 8mg/kg D1,D2 IV first week,then 16 mg/kg IV weekly and we may consider Revlimid as a 4th medication if needed (deferred for worsening neutropenia and thrombocytopenia--I am reluctant to add this therapy initially). --She has baseline cirrhosis with chronic thrombocytopenia and I am attempting to treat her with the least myelosuppressive regimen after 2 month deferral of therapy due to COVID-19 pandemic noted above. Patient does not have any currentsigns or symptoms of infection. On Acyclovir 400mg bid for VZV prophylaxis. --We requested prior liver biopsy from [facility] for review of the extentof her known liver dysfunction. It is doubtful she will be a high-dose chemotherapy/peripheral blood stem cell transplant candidate given her history of cirrhosis and chronic cytopenias. --04/19/2020 toxicity follow-up: Other than daratumumab reaction with cycle 1 day1 and hyperglycemiasecondary to dexamethasone, she has not had any other new toxicities of therapy thrombocytopenia remains in the 40,000 range without bleeding and we will continue treating with 50% dose Velcade as long as she doesnot have worsening hepatic function, thrombocytopenia, or neuropathy. I am sending herto diabetes management clinic for her hyperglycemia to adjust her insulin regimen (patient has previously discussed this with her primary physician who agrees). --05/21/2020: Tolerating weekly daratumumab, bortezomib, dexamethasone well. Diabetes management improving. Thrombocytopenia stable in 50,000 range without bleeding. --05/03/2020: Myeloma labs with no serum M-spike (not performed), + urine M spike now resolved. Immunofixation IgA lambda specificity. IgA normal 112, Serum kappa 7.8, serum lambda 41.3, Free kappa/lambda ratio 0.19 (improved). Normal renal function and calcium. Mildly improved ANC 900 and platelets 54,000 --06/18/2020: No new symptoms on weekly daratumumab, bortezomib, dexamethasone after dose reductionsof bortezomib for cytopenias and neuropathy. Myeloma labsshow lower IgA 72. M-spike IgG kappa afterDaratumumab--previously IgA lambda. Lambda light chain has decreased from 516 to 41.3 to now 18.5 with normalizationof K/L ratio. --08/13/2020: Improving thrombocytopenia (79,000) and decreasing M-spike, IgA and lambda light chain. Next myeloma f/u with labs in 6 weeks, soone r prn. --09/24/2020: Now completing cycle 8 Daratumumab/Velcade/Dexamethasone with decreased M-spike, low IgA and normalization of lambda light chain. Platelets stable at 60-70,000 without bleeding. With cycle 9 onward 10/02/2020, she will maintain once monthly Daratumumab only (stop Velcade and Dexamethasone). F/u every 2 months. --11/26/2020: Stable M-spike and K/L ratio on Daratumumab maintenance. Restaging F-18 PET/CT orderedfor 12/2020 and will review at next f/u. No signs/symptoms of infection rather than recent hematuria/dysuria--sending UA andCx if indicated. Leukopenia and thrombocytopenia relatively stable on current therapy. --01/21/2021: One year f/u F18 PET/CT with stable FDG avidity, monoclonal labs (SPEP, Quant Igs, kappa/lambda ratio) all pending. Stable CBC and CMP. Persistent pain left hand 2nd MCP joint--increaseduptake on PET/CT but no lesion on left hand xray from 11/2020. Sending for ortho evaluation. For nowcontinue once monthly Daratumumab. F/u with myeloma labs and exam in 2 months, sooner prn. --03/28/2021: 2 month followup visit--worsening neck/upper back/shoulder pain. Ordered thoracic spine MRI and will contact patient with results. Otherwise stable CBC, CMP and slowly improved monoclonal gammopathy (rising IgG to now normal). Next PET/CT F18 scheduled late April and I will f/u at that time. --04/24/2021: 1 month followup--no spinal stenosis on thoracic MRI and stable PET/CT bony uptake. Now worsening left sternocleidomastoid pain. Sending for cervical MRI and setting up bone marrow biopsy in the next 1-2 weeks due to declining platelets and rising lambda light chains past 2 visits. 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 Hypocellular with recent worseningplatelets without bleeding--will recheck B12, folate, and ferritin. Cervical MRI showed some spinal stenosis, but neck pain is improved. No bone lesions on PET and prior neuropathy stable to mildly improved. I recommend continuing Daratumumab alone with f/u myeloma labs and f/u in 2 months, sooner prn. This is a moderate complexity visit over 35 minutes for review of bone marrow biopsy and cervical MRI images and reports. (2) Degenerative cervical spinal stenosis Pain in neck/upper thoracic pain and left shoulder pain. MRI thoracic spine with no spinal compression--she declined pain clinic referral for injection but sent for cervical MRI due to worsening leftneck pain--mild degenerative diseaseon MRI. Symptoms stable with no deficits on exam. Continue painmanagement with palliative medicine. 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 I previously reviewed her outpatient records from [facility], including review of notes, laboratories, and prior bone marrow biopsy 13 years ago. 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 Most recent platelet count is relatively stable at 54,000 but no clinical bleeding. She waspreviously referred to weight reduction clinic and may have slow improvement of steatohepatitis with lifestyle modification. Unless she has active bleeding or planned surgery, we will continue observation during treatment of active myelomato commence next month as noted above. --Agree with recommendation for EGD surveillance for varices (last was 09/2018--negative). This will be deferred during current COVID-19 epidemic. --Prior vitamin B12 and folic acid are normal, for known history of neuropathy. As noted above, I reviewed the negative M spike on serum protein electrophoresiswith immunofixation, but positive for Bence Umrray protein on urine protein electrophoresis. Her Quantitative immunoglobulins IgG, IgA, and I gM were all within normal limits, however her serum kappa lambda light chain analysis showeda predominance of lambda light chains. --Previous labs for lupus anticoagulant with DRVVT, hexagonal phase phospholipid, anti-cardiolipin IgG and IgA, and beta 2 glycoprotein IgG and IgA were within normal limits. --Evaluated in ED November 2019 for epistaxis which resolved. Platelet count wasstable at 12/28/2019 follow-up. She continues surveillance with liver clinic at [facility] and I will continue to follow her every 6 months, sooner if newbleeding issues arise. --04/02/2020: We reviewed informed consent for Daratumumab/Velcade/Dexamethasone for active myeloma therapy. I requested prior liver biopsy results and notes from liver clinic at [facility]. Platelet count in 40,000 range but patient has had no active bleeding following infusion port placement 03/22/2020. --08/13/2020: Cycle 6 week 2 toxicity check with improved thrombocytopenia 79,000 range with no bleeding. We will continue current dosing with Velcade 0.7mg/m2 sq (now once weekly), dexamethasone 20 mg weekly, and full dose daratumumab with close follow-up of liver function and platelet counts. --09/24/2020, 01/21/2021, 03/28/2021: Platelets stable 60-70,000 with no new toxicities, started Daratumumab maintenance 10/02/2020. --04/24/2021: Platelets now down to 57,000 with rising lambda light chains. Will eval with repeat bone marrow biopsy due to nonsecretory myeloma. --05/24/2021: Bone marrow hypocellular without significant myeloma progression. Will check B12/folate stores, continue Daratumumab maintenance. 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 She wasreferred to [facility] Management Clinic to attempt weight reduction through diet and exercise that may prevent further fatty infiltration that may further impairher liver function. [facility] hepatology discussed liver transplant but sheis likely no longer a candidate for this given active myeloma. We chose least hepatotoxic regimen for treatment of her active myeloma with 50% dose reduction of Velcade. Liver function remained stable since start of therapy 04/10/2020. --Requested prior liver biopsy and [facility] liver clinic records. (5) Neutropenia, unspecified Qualifiers: Neutropenia type: unspecified Qualified Code(s): D70.9 - Neutropenia, unspecified Previous worsening neutropenia without infection (prior WBC 2000, ANC 600)--thought to be related to new diagnosis of active myeloma and no nutritional deficiency. Treating with less myelosuppressiveregimen (Velcade rather than Revlimid) for myeloma. Of note no dysplastic changes were noted on bone marrow biopsy. Current white blood cell count was stable with absolute neutrophil count had improved to 1205-2897. We will continue to follow closely on current therapy and continue acyclovir prophylaxis. (6) Diabetes mellitus Qualifiers: Diabetes mellitus type: type 2 Diabetes mellitus complication status: without complication Suboptimal diabetes control with recent Hemoglobin A1c 8.4--notes recent adjustment in her diabetesregimen by her primary physician. --04/19/2020 follow-up: She notes that since starting weekly dexamethasone therapy at 20mg dose blood sugars were as high as 400. She agreed to consultation with diabetes management clinic and likely requires supplemental insulin doses on steroid days. --09/24/2020, 01/21/2021, 03/28/2021: Now improved diabetes control since following in diabetes management clinic. Should continue to improve off Dexamethasone weekly after 10/02/2020. Continue followupin diabetes management clinic. (7) Obesity Qualifiers: Body mass index: BMI 36.0-36.9 KAPADIA--continue f/u in weight reduction clinic. She is slowly losing weight overthe past 6 months. Defer to PCM. (8) Cancer-related pain Improved symptoms after palliative radiation to bilateral hips--one dose 02/07/2020. Will continue tofollow on myeloma chemotherapy. Extensive, but stable bone involvement on F-18 PET/CT 12/2020 and 04/2021. Recent increased leftneck and shoulder pain. Increased Percocet dosing to three times daily, but recently improved--followed by palliative medicine. (9) Encounter for antineoplastic immunotherapy Tolerating Daratumumab maintenance well without significant toxicities. Bone marrow biopsy did not reveal indication for change in therapy. - Chemo Plan Chemo Plan (Dose, Rate, Freq): Palliative radiation to 02/07/2020, deferred active therapy for myeloma for 8 weeks due to current COVID-19 epidemic. Discussed at Malignant Hematology Tumor Board early March to determine optimal regimen given her comorbidities. --04/10/2020: cycle 1, day 1 weekly dexamethasone 20 mg IV (careful to watch bloodsugars with diabetes and known hepatic dysfunction), decreased dose of bortezomib 0.7 mg/m? twice weekly for 2 weeks on1 week off (decreased to once weekly after first cycle due to known liver disease and thrombocytopenia), and daratumumab 8mg/kg D1,D2 IV first week, then 16 mg/kg IV weekly --10/02/2020: Started Daratumumab monthly maintenance 16mg/kg IV (stopped Velcade and Dexamethasone) Goal of Treatment: Palliative - Time with Patient Time Spent with Patient (Follow Up Visit): 35 minutes Coordination of Care & Counseling Time: Greater than 50% of time spent with patient was for coordination of care (as documented) and [id number] counseling of patient and/or family. Dictated By: Fabiola Marinelli MD DD/ [id number] Signed By: <Electronically signed by MD Fabiola Marinelli> 05/24/21 [id number] [facility] Work Phone: [phone] 439-431807-02-2021 [facility] Progress note Author Fabiola Marinelli [facility] April 24, 2021 9:12pmNote Date/TimeJune 2020 3:34pm[facility] [place] [address] Hem/Onc Follow Up Note - OP Signed Patient: Mojgan Pérez MR#: [id number] : 1955 Acct:[id number] Age/Sex: 65 / F Type: REG RCR Copies to: MD Yinka Downey MD Katherine M McGraw, VISUAL MERCHANDISER~ Subjective Date/Time of Service: Date of Service: 04/24/2021 Time of Service: 15:34 Chief Complaint: Patient is here today for multiple myeloma, thrombocytopenia and neutropenia. She is here to go over labs, Pet scan and MRI of Thoracic spine. She states she has left sided neck painthat started Thursday. HPI: 04/24/2021: 1 month followup to review PET/CT. Over the past 2 days, she notes episodes of sharp left sided neck pain over sternocleidomastoid muscle and mastoid area. No radiculopathy down left upperextremity. No new side effects of Daratumumab. F18 PET/CT shows largely unchanged diffuse uptake through multiple bony sites in axial and articular skeleton. Lambda light chains risingover past 2 month and decline of platelet count to 57,000 without bleeding. MRIof thoracic spine did not show significant thoracic canal stenosis. Due to worsening neck pain with extensive uptake on F18 PET/CT--we will send for cervical MRI. Palliative medicine has increased Percocet to tid. We will repeat bone marrow biopsy due to rising lambda light chain and falling platelet count to determine if progression of myeloma noted. This will be scheduled in the next 1-2 weeks. 03/28/2021: 2 month followup for multiple myeloma. More recently notes neck andleft shoulder pain. Fatigue and constipation stable. Labs show stable anemia and thrombocytopenia. Serum M-spike now asymmetric gamma (no quantifiable spike). Slowly improving IgG to near normal. [place]/lambda light chain ratio normal with mildly increased lambda light chains. MRI of thoracic spine for evaluation of increasing left shoulder pain. For now we will continue current dosing of Daratumumab and recheck F18 PET/CT for response in late April 2021. 01/21/2021: Mojgan is accompanied by her daughter for 2 month followup--now Daratumumab maintenance. She notes persistent fatigue and recently added as needed laxatives to stool softener for management of constipation. Persistent left hand pain--correlates to an area of bone uptake on PET/CT. Overall F18 PET/CT appears stable with no new areas if FDG avidity (still extensive bone FDG uptake). We reviewed prior plain xrays of left hand from November--she agrees toevaluation by orthopedic surgery (determine if biopsy or steroid injections). M-spike and kappa/lambda light chains pending. CBC (platelets 60-70,000); CMP stable. Will followup in 2 months with exam and labs. 11/26/2020: Mojgan is accompanied by her daughter for 2 month followup--now Daratumumab maintenance. Stable leukopenia/low platelet 70,000. Notes 3 days of hematuria and mild dysuria. Sending UA and possible culture. Otherwise no new bone pain. Blood sugars stable. M-spike and kappa/lambda light chain ratiostable. Next f/u 2 months after one year f/u PET/CT to determine response to therapy. 09/24/2020: Mojgan presents (accompanied by her daughter) for cycle 8, week 2 followup [id number] mg/kg IV weekly, Dexamethasone 20mg weekly, and Velcade 0.7 mg/m? now sq once weekly for every 3-week cycle (21 days). She notes neuropathy symptoms are stable. Tolerating therapy well without fatigue. No bleeding and thrombocytopenia stable in 60-70,0000 range. On 10/02 she will be due for maintenance therapy with Daratumumab alone once per month. I will f/u with her in 2 months with myeloma labs, sooner as needed. Velcade and Dexamethasone will be stopped after 8 cycles. 08/13/2020: Mojgan is here for cycle 6, week 2 (day 14) daratumumab 16 mg/kg weekly, Velcade 0.7 mg/m? now sq once weekly for every 3-week cycle (21 days), and dexamethasone 20 mg weekly. No new symptoms--improving thrombocytopenia to 79,000 and improved leukopenia. 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 Still has improvement of M-spike, IgA normal and decreased lambda light chain and K/L ratio. We discussed that week 25 in Oct she will change to monthly daratumumab with weekly Velcade (1mg/m2) and Dexamethasone. Continue to follow every 6-8 weeks until maintenance schedule. 06/18/2020: Mojgan is here for cycle 3 week 3 (day 21) daratumumab 16 mg/kg weekly, Velcade 0.7 mg/m? now sq once weekly for every 5-week cycle (35 days), and dexamethasone 20 mg weekly. Tolerating well with stable leukopenia and thrombocytopenia. Mild increased symptoms of hand and foot neuropathy, but no limitation in activity. Now following with diabetes management clinic with variable glucosecontrol. We reviewed lower IgA (now M-spike IgG kappa after Daratumumab--previously IgA lambda). Lambda light chain has decreased from 516 to 41.3 to now 18.5 with normalization of K/L ratio. Continue followup myeloma labs in 6 weeks, visit in 8 weeks. 05/21/2020: Mojgan is here for cycle 2 (week 7 overall) daratumumab 16 mg/kg weekly, Velcade 0.7 mg/m? now sq once weekly for every 5-week cycle (35 days), and dexamethasone 20 mg weekly. Tolerating well with stable leukopenia and thrombocytopenia. No significant neuropathy. Noted to have improvement in lambda light chains. No further daratumumab infusion reactions. No infections,stable constipation, pain control improved. No other complaints. Continue monthly f/u with myeloma labs. --Diabetes management--added insulin on dexamethasone days. Hyperglycemia improving. 01/18/2020 (phone followup)--The patient's son was available by phone and her daughter was contactedin a separate phone call as patient presented unaccompanied due to COVID-19 precautions in our clinic during the current epidemic. Bone marrow biopsy results were reviewed as follows from procedure pe rformed 01/26/2020: --Bone marrow biopsy was suboptimal for evaluation. --Increased lambda light chain restricted monoclonal plasma cells (1.9% by flow cytometry, approximately 6% and aspirate count, but 50% by immunohistochemical stains [id number]). Sideroblastic iron present, negative for ring sideroblasts. Peripheral blood smear with mild red blood cell anisocytosis and polychromasia, leukopenia with absolute neutropenia (1000) and thrombocytopenia (54,000) consistent with prior baseline. Note: I discussed the results with Dr. Crook 01/26/2020. Preliminary findings were also discussed with Dr. Cummings 01/27/2020. Morphologic findings, immunohistochemical stains, flow cytometry, and ancillary studies may under represent the extent and severity of disease. The results of FISH myeloma panel with prognostic markers and cytogenetic analysis are pending. --Given the patient's hip pain and presence of lytic lesions, she meets clinicalcriteria for activemyeloma. Given her hip pain and lytic lesions in weightbearing areas she was offered radiation therapy. She had a limited course of hypofractionated palliative therapy to bilateral proximal femurs 02/07/[address] Ahn. We discussed that given the COVID-19 epidemic and absence of other significant changes other than bony lesions (normal renal function, normal calcium, stable cytopenias), I would defer active therapy for myeloma for 4 to 6 weeks. Since she has significant history of liver disease I will discuss her case with Dr. Piter Benavidez at [facility] malignant hematology for optimal regimen. The patient is not a transplant candidate given hernonalcoholic steatohepatitis and chronic thrombocytopenia but may be a candidate for either doublettherapy (Revlimid/dexamethasone) or triplet therapy with either Velcade/Revlimid/dexamethasone or daratumumab/Revlimid/dexamethasone. --02/03/2020: Mojgan presented unaccompanied for follow-up of bone marrow aspiration and biopsy performed by Dr. 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 The patient had been noting increased left hip pain over the past several months andplain films of the pelvis and bilateral femurs did show subtle lucencies in the bilateral proximal femurs corresponding to PET/CT findings but no other additional sclerotic lesions identified. No pathologic fractures were seen. --03/05/2020: Mojgan notes improvement of bilateral hip pain since radiation. No other changes in medical history in the past month--no infections, normal renal function, no hypercalcemia. Stable platelet counts without bleeding. Shewas given written literature regarding Dexamethasone, Velcade (thatwould be dose reduced to 0.7mg/m2 twice weekly), weekly Daratumumab and Revlimid, but I will defer decision of which regimen to use until discussion in malignant hematology tumor board. Also referring for infusion port placement prior to initiating therapy. Sign informed consent prior to initiating therapy. --Discussed with Dr. Benavidez who favors Daratumumab combination--will request prior liver biopsy and records from [facility] liver clinic. The patient and her son (by telephone) expressed understanding and will follow- up as directed in 2 weeks for consent and likely start of therapy. --04/02/2020: Mojgan presents after infusion port placement at [facility] by interventional radiology due to platelet count 40,000--she had increased bruising at site post procedure, but this has completely resolved. Her hip painis well controlled since completion of palliative radiation and no newareas of pain. She has previously reviewed information regarding Daratumumab (first dosesplit 8mg/kg IV D1,D2, then if well tolerated 16mg/kg IV weekly), Velcade at about 50% dose (for liver dysfunction) 0.7mg/m2 D1,D4,D8, D11, and [id number] IV weekly--repeat for every 3 week cycles 1st 3 cycles. She will take chemo class and likely start therapy within 2 weeks with toxicity visit in 3 weeks. Today we reviewed chemotherapy counseling for Daratumumab, Velcade, and Dexamethasone. Common toxicities were reviewed to include infusion reaction including rash/dyspnea/wheezing, myelosuppression, fatigue, nausea, vomiting, constipation, diarrhea, mouth sores, and alopecia. Other toxicities may in cludepneumonitis, neurologic, thromboembolism, hyperglycemia, hepatic and renal toxicities. The patient signed informed consent and will follow-up as directed. --04/19/2020: Mojgan is here for cycle 1 week 2 daratumumab 16 mg/kg weekly, Velcade 0.7 mg/m? twice weekly for first 2 weeks of every 3-week cycle, and dexamethasone 20 mg weekly. She did have an infusion reaction with first daratumumab with dyspnea and flushing but this improved after first dose and she has not had recurrent infusion reactions. We have continued Velcade despite platelet counts in the 40,000 range without bleeding as we know that her baseline platelet counts remain in this range and she has not had any significant change from her baseline. Dexamethasone has caused hyperglycemia with blood sugars up to 400 and we are referring to diabetes management clinic. Otherwise she denies any significant nausea, emesis, fever, chills, night sweats, constipation, diarrhea, rash, mouth sores, or alopecia. She has not hadany change of baseline neuropathy. Liver function tests remain stable. She notes that her hip pain is well controlled since prior palliative radiation and she saw radiation oncology earlier this week with no new recommendations. I will send her myeloma labs including serum and urine protein electrophoresis, quantitative immunoglobulins, and serum kappa/lambda light chains in 2 weeks andfollow-up with her in 3 weeks. She may be seen sooner if new issues arise. This is a 65-year-old lady on chronic disability has a history of arthritis, diabetes mellitus, hypertension, COPD, GERD, and fibromyalgia [facility]. She states that she was followed with Dr. Kmuari prior to his senior care and was told that she had an elevated protein level as well as thrombocytopenia but never had clinical bleeding. She is 4 para4 without complicationsand was never told that she was thrombocytopenic while . She is had multiple prior surgicalprocedures without any clinical bleeding. She had been recommended for a pain procedure with Dr. Wislon but he declined to do the procedure because her platelet count was less than 100,000. For this reason she received 2 platelet transfusions, with little improvement of her platelet count and her second transfusion resulted in throat tightening due to allergy to platelets . She has never beentreated with steroids and has never been told that she has immune thrombocytopenia. She has mild leukopenia with relative neutropenia, absolute neutrophil count of 400-800 and mild lymphocytosis. Hemoglobin is normal. She has not had any bright red blood per rectum or epistaxis. She has no history ofbleeding within the family however does have a mother and sister diagnosed with colon cancer, a brother diagnosed with lung cancer, and another sister diagnosedwith breast cancer. She had prior pain in the right hand mainly at the first MCP joint with some associated swelling and right foot pain and was evaluated by podiatry. She was told that her blood tests were negative forgout. She had screening with MALLORY, CCP, and rheumatoid factor all of which were negative. She says that she previously saw Dr. Petersen for cirrhosis but did not know of any specific therapy. We reviewed these findings from her liver ultrasound ordered by Dr. Benavidez Summer 2016. Initial consultation with me March 16, 2017. --The patient has been followed by me for some time for diagnosis of smoldering myeloma with a prior bone marrow biopsy May 2017 showing 15% plasma cells but the patient remained asymptomatic without bone pain or other CRAB criteria for therapy. She is also noted to have an ascending aortic aneurysm and has chronicliver disease with cirrhosis secondary to nonalcoholic steatohepatitis. She haschronic thrombocytopenia without bleeding ranging from 50-100,000 this is felt to be due to sequestration from her nonalcoholic steatohepatitis. She was previously on a liver transplant list but was recently notified that she is no longer a candidate for liver transplant. She has had chronic pain from f ibromyalgia but noted increasing bilateral hip and upper thigh pain over the last 6 months. She also is followed for EGD/colonoscopy with last documented procedure 09/21/2018: 1. Normal EGD, 2. Mild sigmoid diverticulosis, 3. Internal hemorrhoids, grade 2, 4. Anal fissure with active bleeding cauterized by bipolar cautery Bone osseous survey in June 2019 showed osteopenia and degenerative changes but no lytic or blastic lesion. Patient had an F-18 PET scan 01/02/2020 which showed multiple areas of involvementof bones with increased SUV activity. She was contacted with these results by phone and I recommended bone marrow aspirate and biopsy for assessment and analysis. Her prior labs were reviewed. Her SPEP does not show anymonoclonal gammopathy. On VAHID there appears to be a trace of monoclonal gammopathy. Free light chain ratio is less than 100. There is no evidence of renal sufficiency. Patient is not anemic. She doeshave some abnormal areas on bone scan. - Summary of Therapies Summary of Therapies: 1. 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 2. She underwent a single dose of palliative radiation therapy to bilateral hips, receiving 800 cGyto right and left hip in 1 fraction in separate vaz (with a single isocenter). The treatments were given with AP/PA vaz [id number] MV photons and MLC blocks. 3. Deferred active therapy for myeloma 2 months given COVID-19 epidemic with increased risk of myelosuppression and viral transmission of contacts. --Follow-up 03/05/2020 I discussed her case with Dr. Piter Benavidez at malignant hematology. --Given her significant hepatic dysfunction, I presented her case at malignant hematology tumor board to discuss optimal therapy. 4. Cycle 1 day 1 04/10/2020: Dose reduced Velcade 0.7 mg/m? twice weekly (day 1,day 4, day 8, day 11)every 3 weeks with dexamethasone 20 mg weekly and daratumumab 16 mg/kg weekly of each 21-day cycle.After first week, Velcade decreased to 0.7mg sq weekly due to thrombocytopenia. --We will need to watch liver function, platelet count, and neuropathy closely on Velcade. 5. Cycle 9 day 1 10/02/2020: Daratumumab 16mg/kg once monthly maintenance therapy until progression. ROS Details: All systems reviewed & no additional complaints except as documented Subjective/ROS - Narrative: Constitutional: No Chills, No Diaphoresis, Stable Fatigue, No Fever, No Malaise, No Night Sweats, No Weakness, No Weight Gain, No Weight Loss Gastrointestinal: No Abdominal Pain, No Black Stool, No Bloating, No Bloody Stool, No Constipation,No Diarrhea, No Dysphagia, No Hematemesis, No Nausea, NoPostprandial Pain, No Rectal Bleeding, No Rectal Pain, No Vomiting, Other (chronic gastroesophageal reflux stable) --No jaundice or ascites but patient has longstanding nonalcoholic steatohepatitis with cirrhosis, previously followed by [facility] gastroenterology. Cardiovascular: No Chest Pain, No Edema, No Palpitations, No Syncope Genitourinary: No Discharge, No Dysuria, No Flank Pain, Frequency (chronic andunchanged), Resolved Hematuria, No Incontinence, No Nocturia, No Urgency, No Urinary Retention Musculoskeletal: + left shoulder and neck pain as per HPI (no thoracic cord compression, but sending for cervical MRI). Improvement of prior bilateral hip/thigh pain since radiation; positive for intermittent lumbar back pain, No Chest Wall Tenderness, Improvement of prior Joint Pain, Muscle Stiffness, Myalgia (history of fibromyalgia), --unremarkable skeletal survey June 2019. 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 12/2020: F-18 PET/CT stable. 04/2021 F-18 PET/CT stable. HEENT: No Blurred Vision, No Discharge, No Ear Pain, No Epistaxis, No Rhinorrhea, No Sore Throat--patient was seen in emergency department November 2019 with persistent epistaxis. She was treated withnasal clip and packing andwas advised to continue Afrin. No recurrent bleeding. Respiratory: No Cough, No Hemoptysis, mild Shortness of Breath (chronic and unchanged due to COPD),No Sputum, No Wheezing--shortness of breath with daratumumab reaction dose 1 04/10/2020 (given a split dose over 2 days). No recurrent reaction since first dose. Neurological: No Dizziness, Stable Numbness/Tingling (reports long-standing bilateral foot numbness--unchanged since starting low-dose Velcade 04/10/2020), NoPre-existing Deficit (no history of stroke or seizure), intermittent headache Hematologic/Lymphatic: No significant bleeding thrombocytopenia from sequestration, Bruises Easily,No Enlarged Lymph Nodes, Other (reports allergyto prior platelet transfusion) Endocrine: Excessive Sweating (hot flashes, postmenopausal) Flushing, No Intolerance to Cold, Intolerance to Heat Psychiatric: No Depressed Mood, No Insomnia Integumentary: No Jaundice, No Lesions, No Rash Allergic/Immunology: No Pruritus PMFSH - History Attestation statement: The following information was validated with the patient. Source: Old Records Reviewed - Medical History Medical History: Medical History (Last Reviewed 04/24/21 @ 20:55 by Fabiola Marinelli MD) Aortic aneurysm COPD (chronic obstructive pulmonary disease) Diabetes Fibromyalgia GERD (gastroesophageal reflux disease) Iron deficiency Neutropenia Smoldering multiple myeloma (SMM) Smoldering myeloma Temporary low platelet count - Surgical History Surgical History: Surgical History (Last Reviewed 04/24/21 @ 20:55 by Fabiola Marinelli MD) H/O: hysterectomy History of appendectomy History of cholecystectomy - Social History Smoking Status: Former smoker Tobacco Type: cigarettes Substance Use Type: None Social History Comments: [facility] Home Medications & Allergies Allergies latex Allergy (Verified 04/24/21 15:17) Unknown Reaction moxifloxacin [From Avelox] Allergy (Verified 04/24/21 15:17) Hives Quinolones Allergy (Verified 04/24/21 15:17) Unknown Reaction tetracycline Allergy (Verified 04/24/21 15:17) Unknown Reaction Home Medications carvedilol 12.5 mg PO BID 11/20/17 [History Confirmed 04/24/21] duloxetine 60 mg PO DAILY 11/20/17 [History Confirmed 04/24/21] insulin detemir U-100 26 units SUB-Q QHS 11/20/17 [History Confirmed 04/24/21] oxycodone 10 mg PO TID PRN 11/20/17 [History Confirmed 04/24/21] albuterol sulfate 2 puff INHALATION Q6H PRN 11/24/17 [History Confirmed 04/24/21] fluticasone propion-salmeterol [Advair Diskus] 1 inh INHALATION Q12H PRN 11/24/17 [History Confirmed 04/24/21] omeprazole magnesium [Prilosec OTC] 40 mg PO DAILY 11/24/17 [History Confirmed 04/24/21] cholecalciferol (vitamin D3) [Vitamin D3] 1,000 unit PO DAILY 04/13/19 [History Confirmed 04/24/21] metformin 500 mg PO BID 03/05/20 [History Confirmed 04/24/21] ondansetron HCl [Zofran] 8 mg PO TID PRN #30 tab 04/02/20 [Rx Confirmed 04/24/21] insulin NPH isoph U-100 human [Novolin N NPH U-100 Insulin] 20 unit SUBCUT DIRECTED 05/21/20 [History Confirmed 04/24/21] nystatin 100,000 unit BUCCAL DAILY 90 Days #500 ml 06/18/20 [Rx Confirmed 04/24/21] semaglutide [Ozempic] 0.5 mg SUBCUT QWEEK 09/24/20 [History Confirmed 04/24/21] cyanocobalamin (vitamin B-12) 5,000 mcg PO QWEEK 10/29/20 [History Confirmed 04/24/21] azithromycin [Zithromax Z-Emiliano] 250 mg PO DAILY 11/26/20 [History Confirmed 04/24/21] dexamethasone 20 mg PO ONCE 90 Days #60 tab 11/29/20 [Rx Confirmed 04/24/21] acyclovir 400 mg PO BID 90 Days #180 tab 01/10/21 [Rx Confirmed 04/24/21] potassium chloride 10 meq PO DAILY #30 cap 03/11/21 [Rx Confirmed 04/24/21] vitamin [id number] acid 1 tab PO DAILY 03/28/21 [History Confirmed 04/24/21] diazepam [Valium] 5 mg PO DIRECTED 1 Days #2 tab 04/24/21 [Rx] Objective - Height/Weight Height/Weight: Height 5 ft 2 in Weight 92.986 kg BSA for Today's Weight 2.04 - Vital Signs Vital Signs: 04/24/21 15:18 Temperature 97.9 F Pulse Rate [Left Brachial] 83 Respiratory Rate 20 Blood Pressure [Left Arm] 129/80 02 Sat by Pulse Oximetry 97 - Pain Bilateral Leg Pain Intensity: 5 Bilateral Shoulder Pain Intensity: 6 Generalized Pain Intensity: 3 Bilateral Hip Pain Intensity: 5 Left Hip Pain Intensity: 4 Lower Back Pain Intensity: 7 Left Neck Pain Intensity: 4 Back Pain Intensity: 3 Left index finger Pain Intensity: 4 - Emotional Needs Assessment Emotional Needs Assessment: Emotional Needs Identified? No Physical Exam Narrative: Patient is alert and oriented x3. HEAD / FACE: Normocephalic. No tenderness to palpation over scalp, no sinus tenderness to palpation. EYES: Pupils are equal and reactive to light. Conjunctivae and lids are benign in appearance. Ocular movement intact. EARS: Hearing grossly intact. NOSE / MOUTH / THROAT: Nose, mouth, tongue and oropharynx exam without visible lesion. NECK / THYROID: Neck is with moderate limitation of range of motion--tenderness over left sternocleidomastoid and mastoid bone. No cervical adenopathy on exam. Thyroid is symmetrical, without thyromegaly, masses or palpable nodules. LYMPHATIC: No palpable cervical, supraclavicular, axillary, or inguinal adenopathy. RESPIRATORY: Normal inspection. Lungs clear to auscultation and percussion. No wheezing, rales, rhonchi or rubs. Normal effort. Right chest wall infusion portwithout erythema. CARDIOVASCULAR: Regular rate and rhythm. No murmurs, gallops, or rubs. VASCULAR: Carotid, radial, femoral and pedal pulses present bilaterally. No bruits. ABDOMEN: Bowel sounds normoactive. Soft, nontender and non-distended. No hepatosplenomegaly. No masses. GENITOURINARY: No CVA tenderness. No suprapubic fullness or tenderness. No groinadenopathy. No evidence of hernias. INTEGUMENTARY: The skin is unremarkable. No rashes. No suspicious lesions. No bruising or petechiaenoted. BACK / SPINE: Mild tenderness cervical/upper thoracic spine without step off deformity. No lumbar tenderness. MUSCULOSKELETAL: Normal musculature, decreased ROM left hand grasp, swelling andTTP over left indexMTP joint, no crepitus. EXTREMITIES: 1+ bilateral leg edema. No cyanosis or clubbing. No Destini sign. NEUROLOGICAL: Alert and oriented. Cranial nerves intact. No gross motor or sensory deficits, patient ambulates unassisted. PSYCHIATRIC: No anxiety or evidence of depression. - ECOG Performance Status ECOG Score: 2 Results - Labs Labs: Diagram of Most Recent CBC and CMP 04/15/21 13:15 04/15/21 13:15 - Impressions MRI thoracic spine 04/03/2021. CLINICAL DATA: Mid [...] bony signal abnormality or abnormal enhancement is seen.The paraspinal soft tissues appear unremarkable. MR/MR thoracic spine wo/w con IMPRESSION: 1. Mild thoracic spinal curvature. 2. Disc space narrowing, discovertebral degenerative changes, and mild posteriordisc bulging. 3. No significant thoracic spinal canal stenosis. 4. No suspicious bony signal abnormality or abnormal contrast enhancement. Impression dictated by: Mansoor Vaca Jr., M.D.04/04/2021 9:31 AM PET/CT FUSION IMAGING CLINICAL INFORMATION: Multiple myeloma smoldering COMPARISON : 01/14/21 TECHNIQUE: Noncontrasted CT scan from the base of the skull to the upper thigh followed by PET imaging. Multiplanar PET/CT fusion images. 9.45 mCi of F-18 sodium fluoride administered. FINDINGS: There is redemonstration of foci of increased uptake consistent with multiple myeloma in the skull,sternum, multiple levels of the cervical, thoracic and lumbar spine the pelvis and in the proximal femurs. This is not significantly changed. No new focus of increased uptake identified. Degenerativeuptake identified and multiple regions greatest in the RIGHT foot and ankle. Atherosclerosis noted.Cholecystectomy. Uterus is absent. Fat-containing supraumbilical ventral hernias. PET/PET f-18 bone subq (nopr) IMPRESSION: Stable findings. Impression dictated by: Jorge Duffy M.D.04/22/2021 2:23 PM Assessment and Plan - TNM Staging Staging: Stage IIIA Multiple Myeloma (Durie Boring criteria) (1) Multiple myeloma Qualifiers: Multiple myeloma remission status: not in remission Qualified Code(s): C90.00 - Multiple myeloma not having achieved remission Mojgan 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 She has high risk cytogenetics and I [facility] Her persistent thrombocytopenia made her ineligible for any clinical trials, and preventedher from receiving local pain procedures given her chronic low back pain. --05/2017 PET/CT images and reports performed for staging to exclude bone involvement with myeloma. 2 indeterminate areas of uptake thought to be degenerative arthritis vs early bone findings of myeloma (right parietooccipitalarea and upper sternum). She has remained asymptomatic [...] showed no lytic lesions and she has stableshoulder, hand, and right SI joint pain (although likely due to fibromyalgia. --Prior osseous survey 07/01/2019 showed osteopenia but no compression fractures or lytic lesions were identified. She had no significant change in myeloma labs(mild increase of urine M-spike, kappa/lambda ratio, and normal serum M- spike and quant immunoglobulins). Urine protein still undetectable, therefore will continue surveillance every 6 months with the same labs--no hypercalcemia, renaldysfunction (or proteinuria), anemia, or new bone symptoms. [...] proteins with urine M spike 43.1 but totalprotein 34.4, with no reported urine creatinine. --We deferred immunosuppressive chemotherapy for about 1 month due to control ofsymptoms after palliative radiation and concern of potential peak of COVID-19 inlate January early March. --She presented for follow-up 03/05/2020 and we discussed potential therapy options (with son available by phone). --I discussed her case with Dr. Piter Benavidez of malignant hematology, possibly presenting the patient in hematology tumor board at [facility]. --Infusion port placed 03/22/2020 at [facility] due to low platelets. No complications. --03/12/2020: Myeloma labs with no serum M-spike, + urine M spike 22.2mg/24h (14%). Immunofixation IgA lambda specificity. IgA normal 227, Serum kappa 20.6, serum lambda 516.7, Free kappa/lambda ratio0.04. Normal renal function and calcium. Lower ANC 600 and platelets 40,000 --04/10/2020: Started cycle 1 day 1 of weekly dexamethasone 20 mg IV (careful to watch blood sugars with diabetes and known hepatic dysfunction), decreased dose of bortezomib 0.7 mg/m? twice weekly for2 weeks on 1 week off (due to known liver disease and thrombocytopenia), and daratumumab 8mg/kg D1,D2 IV first week,then 16 mg/kg IV weekly and we may consider Revlimid as a 4th medication if needed (deferred for worsening neutropenia and thrombocytopenia--I am reluctant to add this therapy initially). --She has baseline cirrhosis with chronic thrombocytopenia and I am attempting to treat her with the least myelosuppressive regimen after 2 month deferral of therapy due to COVID-19 pandemic noted above. Patient does not have any currentsigns or symptoms of infection. On Acyclovir 400mg bid for VZV prophylaxis. --We requested prior liver biopsy from [facility] for review of the extentof her known liver dysfunction. It is doubtful she will be a high-dose chemotherapy/peripheral blood stem cell transplant candidate given her history of cirrhosis and chronic cytopenias. --04/19/2020 toxicity follow-up: Other than daratumumab reaction with cycle 1 day1 and hyperglycemiasecondary to dexamethasone, she has not had any other new toxicities of therapy thrombocytopenia remains in the 40,000 range without bleeding and we will continue treating with 50% dose Velcade as long as she doesnot have worsening hepatic function, thrombocytopenia, or neuropathy. I am sending herto diabetes management clinic for her hyperglycemia to adjust her insulin regimen (patient has previously discussed this with her primary physician who agrees). --05/21/2020: Tolerating weekly daratumumab, bortezomib, dexamethasone well. Diabetes management improving. Thrombocytopenia stable in 50,000 range without bleeding. --05/03/2020: Myeloma labs with no serum M-spike (not performed), + urine M spike now resolved. Immunofixation IgA lambda specificity. IgA normal 112, Serum kappa 7.8, serum lambda 41.3, Free kappa/lambda ratio 0.19 (improved). Normal renal function and calcium. Mildly improved ANC 900 and platelets 54,000 --06/18/2020: No new symptoms on weekly daratumumab, bortezomib, dexamethasone after dose reductionsof bortezomib for cytopenias and neuropathy. Myeloma labsshow lower IgA 72. M-spike IgG kappa afterDaratumumab--previously IgA lambda. Lambda light chain has decreased from 516 to 41.3 to now 18.5 with normalizationof K/L ratio. --08/13/2020: Improving thrombocytopenia (79,000) and decreasing M-spike, IgA and lambda light chain. Next myeloma f/u with labs in 6 weeks, soone r prn. --09/24/2020: Now completing cycle 8 Daratumumab/Velcade/Dexamethasone with decreased M-spike, low IgA and normalization of lambda light chain. Platelets stable at 60-70,000 without bleeding. With cycle 9 onward 10/02/2020, she will maintain once monthly Daratumumab only (stop Velcade and Dexamethasone). F/u every 2 months. --11/26/2020: Stable M-spike and K/L ratio on Daratumumab maintenance. Restaging F-18 PET/CT orderedfor 12/2020 and will review at next f/u. No signs/symptoms of infection rather than recent hematuria/dysuria--sending UA andCx if indicated. Leukopenia and thrombocytopenia relatively stable on current therapy. --01/21/2021: One year f/u F18 PET/CT with stable FDG avidity, monoclonal labs (SPEP, Quant Igs, kappa/lambda ratio) all pending. Stable CBC and CMP. Persistent pain left hand 2nd MCP joint--increaseduptake on PET/CT but no lesion on left hand xray from 11/2020. Sending for ortho evaluation. For nowcontinue once monthly Daratumumab. F/u with myeloma labs and exam in 2 months, sooner prn. --03/28/2021: 2 month followup visit--worsening neck/upper back/shoulder pain. Ordered thoracic spine MRI and will contact patient with results. Otherwise stable CBC, CMP and slowly improved monoclonal gammopathy (rising IgG to now normal). Next PET/CT F18 scheduled late April and I will f/u at that time. --04/24/2021: 1 month followup--no spinal stenosis on thoracic MRI and stable PET/CT bony uptake. Now worsening left sternocleidomastoid pain. Sending for cervical MRI and setting up bone marrow biopsy in the next 1-2 weeks due to declining platelets and rising lambda light chains past 2 visits. Percocet dosenow tid titrated by palliative medicine This is a high complexity visit over 45 minutes for review of toxicities and diabetes management, review monoclonal labs, and results of PET/CT and thoracic MRI images and reports. (2) Acute thoracic back pain Qualifiers: Back pain laterality: left Qualified Code(s): M54.6 - Pain in thoracic spine Pain in neck/upper thoracic pain and left shoulder pain. MRI thoracic spine with no spinal compression--she declines pain clinic referral for injection but we are now sending for cervical MRI due to worsening left neck pain over the past 2 days. 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 I previously reviewed her outpatient records from [facility], including review of notes, laboratories, and prior bone marrow biopsy 13 years ago. 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 Most recent platelet count is relatively stable at 54,000 but no clinical bleeding. She waspreviously referred to weight reduction clinic and may have slow improvement of steatohepatitis with lifestyle modification. Unless she has active bleeding or planned surgery, we will continue observation during treatment of active myelomato commence next month as noted above. --Agree with recommendation for EGD surveillance for varices (last was 09/2018--negative). This will be deferred during current COVID-19 epidemic. --Prior vitamin B12 and folic acid are normal, for known history of neuropathy. As noted above, I reviewed the negative M spike on serum protein electrophoresiswith immunofixation, but positive for Bence Murray protein on urine protein electrophoresis. Her Quantitative immunoglobulins IgG, IgA, and I gM were all within normal limits, however her serum kappa lambda light chain analysis showeda predominance of lambda light chains. --Previous labs for lupus anticoagulant with DRVVT, hexagonal phase phospholipid, anti-cardiolipin IgG and IgA, and beta 2 glycoprotein IgG and IgA were within normal limits. --Evaluated in ED November 2019 for epistaxis which resolved. Platelet count wasstable at 12/28/2019 follow-up. She continues surveillance with liver clinic at [facility] and I will continue to follow her every 6 months, sooner if newbleeding issues arise. --04/02/2020: We reviewed informed consent for Daratumumab/Velcade/Dexamethasone for active myeloma therapy. I requested prior liver biopsy results and notes from liver clinic at [facility]. Platelet count in 40,000 range but patient has had no active bleeding following infusion port placement 03/22/2020. --08/13/2020: Cycle 6 week 2 toxicity check with improved thrombocytopenia 79,000 range with no bleeding. We will continue current dosing with Velcade 0.7mg/m2 sq (now once weekly), dexamethasone 20 mg weekly, and full dose daratumumab with close follow-up of liver function and platelet counts. --09/24/2020, 01/21/2021, 03/28/2021: Platelets stable 60-70,000 with no new toxicities, started Daratumumab maintenance 10/02/2020. --04/24/2021: Platelets now down to 57,000 with rising lambda light chains. Will eval with repeat bone marrow biopsy due to nonsecretory myeloma. 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 She wasreferred to [facility] to attempt weight reduction through diet and exercise that may prevent further fatty infiltration that may further impairher liver function. [facility] hepatology discussed liver transplant but sheis likely no longer a candidate for this given active myeloma. We chose least hepatotoxic regimen for treatment of her active myeloma with 50% dose reduction of Velcade. Liver function remained stable since start of therapy 04/10/2020. --Requested prior liver biopsy and [facility] liver clinic records. (5) Neutropenia, unspecified Qualifiers: Neutropenia type: unspecified Qualified Code(s): D70.9 - Neutropenia, unspecified Previous worsening neutropenia without infection (prior WBC 2000, ANC 600)--thought to be related to new diagnosis of active myeloma and no nutritional deficiency. Treating with less myelosuppressiveregimen (Velcade rather than Revlimid) for myeloma. Of note no dysplastic changes were noted on bone marrow biopsy. Current white blood cell count was stable with absolute neutrophil count had improved to 8535-2077. We will continue to follow closely on current therapy and continue acyclovir prophylaxis. (6) Diabetes mellitus Qualifiers: Diabetes mellitus type: type 2 Diabetes mellitus complication status: without complication Suboptimal diabetes control with recent Hemoglobin A1c 8.4--notes recent adjustment in her diabetesregimen by her primary physician. --04/19/2020 follow-up: She notes that since starting weekly dexamethasone therapy at 20mg dose blood sugars were as high as 400. She agreed to consultation with diabetes management clinic and likely requires supplemental insulin doses on steroid days. --09/24/2020, 01/21/2021, 03/28/2021: Now improved diabetes control since following in diabetes management clinic. Should continue to improve off Dexamethasone weekly after 10/02/2020. Continue followupin diabetes management clinic. (7) Obesity Qualifiers: Body mass index: BMI 37.0-37.9 KAPADIA--continue f/u in weight reduction clinic. She is slowly losing weight overthe past 6 months. Defer to PCM. (8) Cancer-related pain Improved symptoms after palliative radiation to bilateral hips--one dose 02/07/2020. Will continue tofollow on myeloma chemotherapy. Extensive, but stable bone involvement on F-18 PET/CT 12/2020 and 04/2021. Recent increased leftneck and shoulder pain. Increased Percocet dosing past week--followed by palliative medicine. (9) Encounter for antineoplastic immunotherapy Tolerating Daratumumab maintenance well without significant toxicities. Bone marrow biopsy to determine if indication for change in therapy. - Chemo Plan Chemo Plan (Dose, Rate, Freq): Palliative radiation to 02/07/2020, deferred active therapy for myeloma for 8 weeks due to current COVID-19 epidemic. Discussed at Malignant Hematology Tumor Board early March to determine optimal regimen given her comorbidities. --04/10/2020: cycle 1, day 1 weekly dexamethasone 20 mg IV (careful to watch bloodsugars with diabetes and known hepatic dysfunction), decreased dose of bortezomib 0.7 mg/m? twice weekly for 2 weeks on1 week off (decreased to once weekly after first cycle due to known liver disease and thrombocytopenia), and daratumumab 8mg/kg D1,D2 IV first week, then 16 mg/kg IV weekly --10/02/2020: Started Daratumumab monthly maintenance 16mg/kg IV (stop Velcade and Dexamethasone) Goal of Treatment: Palliative - Time with Patient Time Spent with Patient (Follow Up Visit): 45 minutes or more Coordination of Care & Counseling Time: Greater than 50% of time spent with patient was for coordination of care (as documented) and [id number] counseling of patient and/or family. Dictated By: Fabiola Marinelli MD DD/ [id number] Signed By: <Electronically signed by MD Fabiola Marinelli> 04/24/212111 [facility] Work Phone: [phone]) 693-269705-28-2021 Progress note Author Fabiola Marinelli [facility] March 29, 2021 9:10pmNote Date/TimeMay 2020 1:36pmTexas [facility] [place] [address] Hem/Onc Follow Up Note - OP Signed Patient: Mojgan Pérez MR#: [id number] : 1955 Acct:[id number] Age/Sex: 65 / F Type: REG RCR Copies to: MD Yinka Downey MD~ Subjective Date/Time of Service: Date of Service: 03/28/2021 Time of Service: 13:15 Chief Complaint: Patient is here for 2 month follow up visit for multiple myeloma, thrombocytopeniaand neutropenia. She is here to go over labs. She has a spot that is on her upper right side of back that is painful and has a spot HPI: 03/28/2021: 2 month followup for multiple myeloma. More recently notes neck andleft shoulder pain. Fatigue and constipation stable. Labs show stable anemia and thrombocytopenia. Serum M-spike now asymmetric gamma (no quantifiable spike). Slowly improving IgG to near normal. [place]/lambda light chain ratio normal with mildly increased lambda light chains. MRI of thoracic spine for evaluation of increasing left shoulder pain. For now we will continue current dosing of Daratumumab and recheck F18 PET/CT for response in late April 2021. 01/21/2021: Mojgan is accompanied by her daughter for 2 month followup--now Daratumumab maintenance. She notes persistent fatigue and recently added as needed laxatives to stool softener for management of constipation. Persistent left hand pain--correlates to an area of bone uptake on PET/CT. Overall F18 PET/CT appears stable with no new areas if FDG avidity (still extensive bone FDGuptake). We reviewed prior plain xrays of left hand from November--she agrees toevaluation by orthopedic surgery (determine if biopsy or steroid injections). M-spike and kappa/lambda light chains pending. CBC (platelets 60-70,000); CMP stable. Will followup in 2 months with exam and labs. 11/26/2020: Mojgan is accompanied by her daughter for 2 month followup--now Daratumumab maintenance. Stable leukopenia/low platelet 70,000. Notes 3 days of hematuria and mild dysuria. Sending UA and possible culture. Otherwise no new bone pain. Blood sugars stable. M-spike and kappa/lambda light chain ratiostable. Next f/u 2 months after one year f/u PET/CT to determine response to therapy. 09/24/2020: Mojgan presents (accompanied by her daughter) for cycle 8, week 2 followup [id number] mg/kg IV weekly, Dexamethasone 20mg weekly, and Velcade 0.7 mg/m? now sq once weekly for every 3-week cycle (21 days). She notes neuropathy symptoms are stable. Tolerating therapy well without fatigue. No bleeding and thrombocytopenia stable in 60-70,0000 range. On 10/02 she will be due for maintenance therapy with Daratumumab alone once per month. I will f/u with her in 2 months with myeloma labs, sooner as needed. Velcade and Dexamethasone will be stopped after 8 cycles. 08/13/2020: Mojgan is here for cycle 6, week 2 (day 14) daratumumab 16 mg/kg weekly, Velcade 0.7 mg/m? now sq once weekly for every 3-week cycle (21 days), and dexamethasone 20 mg weekly. No new symptoms--improving thrombocytopenia to 79,000 and improved leukopenia. 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 Still has improvement of M-spike, IgA normal and decreased lambda light chain and K/L ratio. We discussed that week 25 in Oct she will change to monthly daratumumab with weekly Velcade (1mg/m2) and Dexamethasone. Continue to follow every 6-8 weeks until maintenance schedule. 06/18/2020: Mojgan is here for cycle 3 week 3 (day 21) daratumumab 16 mg/kg weekly, Velcade 0.7 mg/m? now sq once weekly for every 5-week cycle (35 days), and dexamethasone 20 mg weekly. Tolerating well with stable leukopenia and thrombocytopenia. Mild increased symptoms of hand and foot neuropathy, but no limitation in activity. Now following with diabetes management clinic with variable glucosecontrol. We reviewed lower IgA (now M-spike IgG kappa after Daratumumab--previously IgA lambda). Lambda light chain has decreased from 516 to 41.3 to now 18.5 with normalization of K/L ratio. Continue followup myeloma labs in 6 weeks, visit in 8 weeks. 05/21/2020: Mojgan is here for cycle 2 (week 7 overall) daratumumab 16 mg/kg weekly, Velcade 0.7 mg/m? now sq once weekly for every 5-week cycle (35 days), and dexamethasone 20 mg weekly. Tolerating well with stable leukopenia and thrombocytopenia. No significant neuropathy. Noted to have improvement in lambda light chains. No further daratumumab infusion reactions. No infections,stable constipation, pain control improved. No other complaints. Continue monthly f/u with myeloma labs. --Diabetes management--added insulin on dexamethasone days. Hyperglycemia improving. 01/18/2020 (phone followup)--The patient's son was available by phone and her daughter was contactedin a separate phone call as patient presented unaccompanied due to COVID-19 precautions in our clinic during the current epidemic. Bone marrow biopsy results were reviewed as follows from procedure pe rformed 01/26/2020: --Bone marrow biopsy was suboptimal for evaluation. --Increased lambda light chain restricted monoclonal plasma cells (1.9% by flow cytometry, approximately 6% and aspirate count, but 50% by immunohistochemical stains [id number]). Sideroblastic iron present, negative for ring sideroblasts. Peripheral blood smear with mild red blood cell anisocytosis and polychromasia, leukopenia with absolute neutropenia (1000) and thrombocytopenia (54,000) consistent with prior baseline. Note: I discussed the results with Dr. Crook 01/26/2020. Preliminary findings were also discussed with Dr. Cummings 01/27/2020. Morphologic findings, immunohistochemical stains, flow cytometry, and ancillary studies may under represent the extent and severity of disease. The results of FISH myeloma panelwith prognostic markers and cytogenetic analysis are pending. --Given the patient's hip pain and presence of lytic lesions, she meets clinicalcriteria for activemyeloma. Given her hip pain and lytic lesions in weightbearing areas she was offered radiation therapy. She had a limited courseof hypofractionated palliative therapy to bilateral proximal femurs [address] Ahn. We discussed that given the COVID-19 epidemic and absence of othersignificant changes other than bony lesions (normal renal function, normal calcium, stable cytopenias), I would defer active therapy for myeloma for 4 to 6 weeks. Since she has significant history ofliver disease I will discuss her case with Dr. Piter Benavidez at [facility] malignant hematology for optimal regimen. The patient is not a transplant candidate given her nonalcoholic steatohepatitis and chronic thrombocytopenia but may be a candidate for either doublet therapy (Revlimid/dexamethasone) or triplet therapy with either Velcade/Revlimid/dexamethasone or daratumumab/Revlimid/dexamethasone. --02/03/2020: Mojgan presented unaccompanied for follow-up of bone marrow aspiration and biopsy performed by Dr. 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 The patient had been noting increased left hip pain over the past several months andplain films of the pelvis and bilateral femurs did show subtle lucencies in the bilateral proximal femurs corresponding to PET/CT findings but no other additional sclerotic lesions identified. No pathologic fractures were seen. --03/05/2020: Mojgan notes improvement of bilateral hip pain since radiation. No other changes in medical history in the past month--no infections, normal renal function, no hypercalcemia. Stable platelet counts without bleeding. Shewas given written literature regarding Dexamethasone, Velcade (thatwould be dose reduced to 0.7mg/m2 twice weekly), weekly Daratumumab and Revlimid, but I will defer decision of which regimen to use until discussion in malignant hematology tumor board. Also referring for infusion port placement prior to initiating therapy. Sign informed consent prior to initiating therapy. --Discussed with Dr. Benavidez who favors Daratumumab combination--will request prior liver biopsy and records from [facility] liver clinic. The patient and her son (by telephone) expressed understanding and will follow- up as directed in 2 weeks for consent and likely start of therapy. --04/02/2020: Mojgan presents after infusion port placement at [facility] by interventional radiology due to platelet count 40,000--she had increased bruising at site post procedure, but this has completely resolved. Her hip painis well controlled since completion of palliative radiation and no newareas of pain. She has previously reviewed information regarding Daratumumab (first dosesplit 8mg/kg IV D1,D2, then if well tolerated 16mg/kg IV weekly), Velcade at about 50% dose (for liver dysfunction) 0.7mg/m2 D1,D4,D8, D11, and [id number] IV weekly--repeat for every 3 week cycles 1st 3 cycles. She will take chemo class and likely start therapy within 2 weeks with toxicity visit in 3 weeks. Today we reviewed chemotherapy counseling for Daratumumab, Velcade, and Dexamethasone. Common toxicities were reviewed to include infusion reaction including rash/dyspnea/wheezing, myelosuppression, fatigue, nausea, vomiting, constipation, diarrhea, mouth sores, and alopecia. Other toxicities may in cludepneumonitis, neurologic, thromboembolism, hyperglycemia, hepatic and renal toxicities. The patient signed informed consent and will follow-up as directed. --04/19/2020: Mojgan is here for cycle 1 week 2 daratumumab 16 mg/kg weekly, Velcade 0.7 mg/m? twice weekly for first 2 weeks of every 3-week cycle, and dexamethasone 20 mg weekly. She did have an infusion reaction with first daratumumab with dyspnea and flushing but this improved after first dose and shehas not had recurrent infusion reactions. We have continued Velcade despite platelet counts in the 40,000 range without bleeding as we know that her baseline platelet counts remain in this range and she has not had any significant change from her baseline. Dexamethasone has caused hyperglycemia with blood sugars up to 400 and we are referring to diabetes management clinic. Otherwise she denies any significant nausea, emesis, fever, chills, night sweats, constipation, diarrhea, rash, mouthsores, or alopecia. She has not hadany change of baseline neuropathy. Liver function tests remain stable. She notes that her hip pain is well controlled since prior palliative radiation and she saw radiation oncology earlier this week with no new recommendations. I will send her myeloma labs including serum and urine protein electrophoresis, quantitative immunoglobulins, and serum kappa/lambda light chains in 2 weeks andfollow-up with her in 3 weeks. She may be seen sooner if new issues arise. This is a 65-year-old lady on chronic disability has a history of arthritis, diabetes mellitus, hypertension, COPD, GERD, and fibromyalgia who was previously[facility] for chronic mild to moderate thrombocytopenia. She states that she was followed with Dr. Kumari prior to his senior care and was told that she had an elevated protein level as well as thrombocytopenia but never had clinical bleeding. She is 4 para4 without complicationsand was never told that she was thrombocytopenic while . She is had multiple prior surgicalprocedures without any clinical bleeding. She had been recommended for a pain procedure with Dr. Wilson but he declined to do the procedure because her platelet count was less than 100,000. For this reason she received 2 platelet transfusions, with little improvement of her platelet count and her second transfusion resulted in throat tightening due to allergy to platelets . She has never beentreated with steroids and has never been told that she has immune thrombocytopenia. She has mild leukopenia with relative neutropenia, absolute neutrophil count of 400-800 and mild lymphocytosis. Hemoglobin is normal. She has not had any bright red blood per rectum or epistaxis. She has no history ofbleeding within the family however does have a mother and sister diagnosed with colon cancer, a brother diagnosed with lung cancer, and another sister diagnosedwith breast cancer. She had prior pain in the right hand mainly at the first MCP joint with some associated swelling and right foot pain and was evaluated by podiatry. She was told that her blood tests were negative forgout. She had screening with MALLORY, CCP, and rheumatoid factor all of which were negative. She says that she previously saw Dr. Petersen for cirrhosis but did not know of any specific therapy. We reviewed these findings from her liver ultrasound ordered by Dr. Benavidez Summer 2016. Initial consultation with me March 16, 2017. --The patient has been followed by me for some time for diagnosis of smoldering myeloma with a prior bone marrow biopsy May 2017 showing 15% plasma cells but the patient remained asymptomatic without bone pain or other CRAB criteria for therapy. She is also noted to have an ascending aortic aneurysm and has chronicliver disease with cirrhosis secondary to nonalcoholic steatohepatitis. She haschronic thrombocytopenia without bleeding ranging from 50-100,000 this is felt to be due to sequestration from her nonalcoholic steatohepatitis. She was previously on a liver transplant list but was recently notified that she is no longer a candidate for liver transplant. She has had chronic pain from f ibromyalgia but noted increasing bilateral hip and upper thigh pain over the last 6 months. She also is followed for EGD/colonoscopy with last documented procedure 09/21/2018: 1. Normal EGD, 2. Mild sigmoid diverticulosis, 3. Internal hemorrhoids, grade 2, 4. Anal fissure with active bleeding cauterized by bipolar cautery Bone osseous survey in June 2019 showed osteopenia and degenerative changes but no lytic or blastic lesion. Patient had an F-18 PET scan 01/02/2020 which showed multiple areas of involvementof bones with increased SUV activity. She was contacted with these results by phone and I recommended bone marrow aspirate and biopsy for assessment and analysis. Her prior labs were reviewed. Her SPEP does not show anymonoclonal gammopathy. On VAHID there appears to be a trace of monoclonal gammopathy. Free light chain ratio is less than 100. There is no evidence of renal sufficiency. Patient is not anemic. She doeshave some abnormal areas on bone scan. - Summary of Therapies Summary of Therapies: 1. 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 2. She underwent a single dose of palliative radiation therapy to bilateral hips, receiving 800 cGyto right and left hip in 1 fraction in separate vaz (with a single isocenter). The treatments were given with AP/PA vaz [id number] MV photons and MLC blocks. 3. Deferred active therapy for myeloma 2 months given COVID-19 epidemic with increased risk of myelosuppression and viral transmission of contacts. --Follow-up 03/05/2020 I discussed her case with Dr. Piter Benavidez at malignant hematology. --Given her significant hepatic dysfunction, I presented her case at malignant hematology tumor board to discuss optimal therapy. 4. Cycle 1 day 1 04/10/2020: Dose reduced Velcade 0.7 mg/m? twice weekly (day 1,day 4, day 8, day 11)every 3 weeks with dexamethasone 20 mg weekly and daratumumab 16 mg/kg weekly of each 21-day cycle.After first week, Velcade decreased to 0.7mg sq weekly due to thrombocytopenia. --We will need to watch liver function, platelet count, and neuropathy closely on Velcade. 5. Cycle 9 day 1 10/02/2020: Daratumumab 16mg/kg once monthly maintenance therapy until progression. ROS Details: All systems reviewed & no additional complaints except as documented Subjective/ROS - Narrative: Constitutional: No Chills, No Diaphoresis, Stable Fatigue, No Fever, No Malaise, No Night Sweats, No Weakness, No Weight Gain, No Weight Loss Gastrointestinal: No Abdominal Pain, No Black Stool, No Bloating, No Bloody Stool, No Constipation,No Diarrhea, No Dysphagia, No Hematemesis, No Nausea, NoPostprandial Pain, No Rectal Bleeding, No Rectal Pain, No Vomiting, Other (chronic gastroesophageal reflux stable) --No jaundice or ascites but patient has longstanding nonalcoholic steatohepatitis with cirrhosis, previously followed by [facility] gastroenterology. Cardiovascular: No Chest Pain, No Edema, No Palpitations, No Syncope Genitourinary: No Discharge, No Dysuria, No Flank Pain, Frequency (chronic andunchanged), Resolved Hematuria, No Incontinence, No Nocturia, No Urgency, No Urinary Retention Musculoskeletal: + left shoulder and neck pain as per HPI. Improvement of priorbilateral hip/thigh pain since radiation; positive for intermittent lumbar back pain, No Chest Wall Tenderness, Improvement of prior Joint Pain, Muscle Stiffness, Myalgia (history of fibromyalgia), No Neck Pain (reports known cervical disc disease) --unremarkable skeletal survey June 2019. 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 12/2020: F-18 PET/CT stable. HEENT: No Blurred Vision, No Discharge, No Ear Pain, No Epistaxis, No Rhinorrhea, No Sore Throat--patient was seen in emergency department November 2019 with persistent epistaxis. She was treated withnasal clip and packing andwas advised to continue Afrin. No recurrent bleeding. Respiratory: No Cough, No Hemoptysis, mild Shortness of Breath (chronic and unchanged due to COPD),No Sputum, No Wheezing--shortness of breath with daratumumab reaction dose 1 04/10/2020 (given a split dose over 2 days). No recurrent reaction since first dose. Neurological: No Dizziness, Stable Numbness/Tingling (reports long-standing bilateral foot numbness--unchanged since starting low-dose Velcade 04/10/2020), NoPre-existing Deficit (no history of stroke or seizure), intermittent headache Hematologic/Lymphatic: No significant bleeding thrombocytopenia from sequestration, Bruises Easily,No Enlarged Lymph Nodes, Other (reports allergyto prior platelet transfusion) Endocrine: Excessive Sweating (hot flashes, postmenopausal) Flushing, No Intolerance to Cold, Intolerance to Heat Psychiatric: No Depressed Mood, No Insomnia Integumentary: No Jaundice, No Lesions, No Rash Allergic/Immunology: No Pruritus PMFSH - History Attestation statement: The following information was validated with the patient. Source: Old Records Reviewed - Medical History Medical History: Medical History (Last Reviewed 03/29/21 @ 20:43 by Fabiola Marinelli MD) Aortic aneurysm COPD (chronic obstructive pulmonary disease) Diabetes Fibromyalgia GERD (gastroesophageal reflux disease) Iron deficiency Neutropenia Smoldering multiple myeloma (SMM) Smoldering myeloma Temporary low platelet count - Surgical History Surgical History: Surgical History (Last Reviewed 03/29/21 @ 20:44 by Fabiola Marinelli MD) H/O: hysterectomy History of appendectomy History of cholecystectomy - Social History Smoking Status: Former smoker Tobacco Type: cigarettes Substance Use Type: None Social History Comments: Lives with son a grandaughter Home Medications & Allergies Allergies latex Allergy (Verified 03/28/21 13:18) Unknown Reaction moxifloxacin [From Avelox] Allergy (Verified 03/28/21 13:18) Hives Quinolones Allergy (Verified 03/28/21 13:18) Unknown Reaction tetracycline Allergy (Verified 03/28/21 13:18) Unknown Reaction Home Medications carvedilol 12.5 mg PO BID 11/20/17 [History Confirmed 01/21/21] duloxetine 60 mg PO DAILY 11/20/17 [History Confirmed 01/21/21] insulin detemir U-100 26 units SUB-Q QHS 11/20/17 [History Confirmed 01/21/21] oxycodone 10 mg PO TID PRN 11/20/17 [History Confirmed 01/21/21] albuterol sulfate 2 puff INHALATION Q6H PRN 11/24/17 [History Confirmed 01/21/21] fluticasone propion-salmeterol [Advair Diskus] 1 inh INHALATION Q12H PRN 11/24/17 [History Confirmed 01/21/21] omeprazole magnesium [Prilosec OTC] 40 mg PO DAILY 11/24/17 [History Confirmed 01/21/21] cholecalciferol (vitamin D3) [Vitamin D3] 1,000 unit PO DAILY 04/13/19 [History Confirmed 01/21/21] metformin 500 mg PO BID 03/05/20 [History Confirmed 01/21/21] ondansetron HCl [Zofran] 8 mg PO TID PRN #30 tab 04/02/20 [Rx Confirmed 01/21/21] insulin NPH isoph U-100 human [Novolin N NPH U-100 Insulin] 20 unit SUBCUT DIRECTED 05/21/20 [History Confirmed 01/21/21] nystatin 100,000 unit BUCCAL DAILY 90 Days #500 ml 06/18/20 [Rx Confirmed 01/21/21] semaglutide [Ozempic] 0.5 mg SUBCUT QWEEK 09/24/20 [History Confirmed 01/21/21] cyanocobalamin (vitamin B-12) 5,000 mcg PO QWEEK 10/29/20 [History Confirmed 01/21/21] azithromycin [Zithromax Z-Emiliano] 250 mg PO DAILY 11/26/20 [History Confirmed 01/21/21] dexamethasone 20 mg PO ONCE 90 Days #60 tab 11/29/20 [Rx Confirmed 01/21/21] acyclovir 400 mg PO BID 90 Days #180 tab 01/10/21 [Rx Confirmed 01/21/21] potassium chloride 10 meq PO DAILY #30 cap 03/11/21 [Rx] vitamin R54-mbalm acid 1 tab PO DAILY 03/28/21 [History Confirmed 03/28/21] diazepam [Valium] 5 mg PO DIRECTED 1 Days #2 tab 03/29/21 [Rx] Objective - Height/Weight Height/Weight: Height 5 ft 2 in Weight 94.801 kg BSA for Today's Weight 2.06 - Vital Signs Vital Signs: 03/28/21 13:19 Temperature 97.9 F Pulse Rate [Left Brachial] 86 Respiratory Rate 20 Blood Pressure [Left Arm] 100/60 02 Sat by Pulse Oximetry 95 - Pain Bilateral Leg Pain Intensity: 5 Bilateral Shoulder Pain Intensity: 6 Generalized Pain Intensity: 3 Bilateral Hip Pain Intensity: 5 Left Hip Pain Intensity: 4 Lower Back Pain Intensity: 7 Left Neck Pain Intensity: 4 Left index finger Pain Intensity: 4 - Emotional Needs Assessment Emotional Needs Assessment: Emotional Needs Identified? No Physical Exam Narrative: Patient is alert and oriented x3. HEAD / FACE: Normocephalic. No tenderness to palpation over scalp, no sinus tenderness to palpation. EYES: Pupils are equal and reactive to light. Conjunctivae and lids are benign in appearance. Ocular movement intact. EARS: Hearing grossly intact. NOSE / MOUTH / THROAT: Nose, mouth, tongue and oropharynx exam deferred due to coronavirus-19 pandemic (mask in place). NECK / THYROID: Neck is with mild limitation of range of motion. Thyroid is symmetrical, without thyromegaly, masses or palpable nodules. LYMPHATIC: No palpable cervical, supraclavicular, axillary, or inguinal adenopathy. RESPIRATORY: Normal inspection. Lungs clear to auscultation and percussion. No wheezing, rales, rhonchi or rubs. Normal effort. Right chest wall infusion portwithout erythema. CARDIOVASCULAR: Regular rate and rhythm. No murmurs, gallops, or rubs. VASCULAR: Carotid, radial, femoral and pedal pulses present bilaterally. No bruits. ABDOMEN: Bowel sounds normoactive. Soft, nontender and non-distended. No hepatosplenomegaly. No masses. GENITOURINARY: No CVA tenderness. No suprapubic fullness or tenderness. No groinadenopathy. No evidence of hernias. INTEGUMENTARY: The skin is unremarkable. No rashes. No suspicious lesions. No bruising or petechiaenoted. BACK / SPINE: Mild tenderness upper thoracic spine without step off deformity. No lumbar tenderness. MUSCULOSKELETAL: Normal musculature, decreased ROM left hand grasp, swelling andTTP over left indexMTP joint, no crepitus. EXTREMITIES: 1+ bilateral leg edema. No cyanosis or clubbing. No Destini sign. NEUROLOGICAL: Alert and oriented. Cranial nerves intact. No gross motor or sensory deficits, patient ambulates unassisted. PSYCHIATRIC: No anxiety or evidence of depression. - ECOG Performance Status ECOG Score: 1 Results - Labs Labs: Diagram of Most Recent CBC and CMP 03/18/21 13:08 05/17/21 13:08 - Impressions MRI thoracic spine ordered for neck pain evaluation. PET/CT F-18 to evaluate for response vs. progression late April 2021. 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 She has high risk cytogenetics and I [facility] Her persistent thrombocytopenia made her ineligible for any clinical trials, and preventedher from receiving local pain procedures given her chronic low back pain. --05/2017 PET/CT images and reports performed for staging to exclude bone involvement with myeloma. 2 indeterminate areas of uptake thought to be degenerative arthritis vs early bone findings of myeloma (right parietooccipitalarea and upper sternum). She has remained asymptomatic [...] showed no lytic lesions and she has stableshoulder, hand, and right SI joint pain (although likely due to fibromyalgia. --Prior osseous survey 07/01/2019 showed osteopenia but no compression fractures or lytic lesions were identified. She had no significant change in myeloma labs(mild increase of urine M-spike, kappa/lambda ratio, and normal serum M- spike and quant immunoglobulins). Urine protein still undetectable, therefore will continue surveillance every 6 months with the same labs--no hypercalcemia, renaldysfunction (or proteinuria), anemia, or new bone symptoms. [...] proteins with urine M spike 43.1 but totalprotein 34.4, with no reported urine creatinine. --We deferred immunosuppressive chemotherapy for about 1 month due to control ofsymptoms after palliative radiation and concern of potential peak of COVID-19 inlate January early March. --She presented for follow-up 03/05/2020 and we discussed potential therapy options (with son available by phone). --I discussed her case with Dr. Piter Benavidez of malignant hematology, possibly presenting the patient in hematology tumor board at [facility]. --Infusion port placed 03/22/2020 at [facility] due to low platelets. No complications. --03/12/2020: Myeloma labs with no serum M-spike, + urine M spike 22.2mg/24h (14%). Immunofixation IgA lambda specificity. IgA normal 227, Serum kappa 20.6, serum lambda 516.7, Free kappa/lambda ratio0.04. Normal renal function and calcium. Lower ANC 600 and platelets 40,000 --04/10/2020: Started cycle 1 day 1 of weekly dexamethasone 20 mg IV (careful to watch blood sugars with diabetes and known hepatic dysfunction), decreased dose of bortezomib 0.7 mg/m? twice weekly for2 weeks on 1 week off (due to known liver disease and thrombocytopenia), and daratumumab 8mg/kg D1,D2 IV first week,then 16 mg/kg IV weekly and we may consider Revlimid as a 4th medication if needed (deferred for worsening neutropenia and thrombocytopenia--I am reluctant to add this therapy initially). --She has baseline cirrhosis with chronic thrombocytopenia and I am attempting to treat her with the least myelosuppressive regimen after 2 month deferral of therapy due to COVID-19 pandemic noted above. Patient does not have any currentsigns or symptoms of infection. On Acyclovir 400mg bid for VZV prophylaxis. --We requested prior liver biopsy from [facility] for review of the extentof her known liver dysfunction. It is doubtful she will be a high-dose chemotherapy/peripheral blood stem cell transplant candidate given her history of cirrhosis and chronic cytopenias. --04/19/2020 toxicity follow-up: Other than daratumumab reaction with cycle 1 day1 and hyperglycemiasecondary to dexamethasone, she has not had any other new toxicities of therapy thrombocytopenia remains in the 40,000 range without bleeding and we will continue treating with 50% dose Velcade as long as she doesnot have worsening hepatic function, thrombocytopenia, or neuropathy. I am sending herto diabetes management clinic for her hyperglycemia to adjust her insulin regimen (patient has previously discussed this with her primary physician who agrees). --05/21/2020: Tolerating weekly daratumumab, bortezomib, dexamethasone well. Diabetes management improving. Thrombocytopenia stable in 50,000 range without bleeding. --05/03/2020: Myeloma labs with no serum M-spike (not performed), + urine M spike now resolved. Immunofixation IgA lambda specificity. IgA normal 112, Serum kappa 7.8, serum lambda 41.3, Free kappa/lambda ratio 0.19 (improved). Normal renal function and calcium. Mildly improved ANC 900 and platelets 54,000 --06/18/2020: No new symptoms on weekly daratumumab, bortezomib, dexamethasone after dose reductionsof bortezomib for cytopenias and neuropathy. Myeloma labsshow lower IgA 72. M-spike IgG kappa afterDaratumumab--previously IgA lambda. Lambda light chain has decreased from 516 to 41.3 to now 18.5 with normalizationof K/L ratio. --08/13/2020: Improving thrombocytopenia (79,000) and decreasing M-spike, IgA and lambda light chain. Next myeloma f/u with labs in 6 weeks, soone r prn. --09/24/2020: Now completing cycle 8 Daratumumab/Velcade/Dexamethasone with decreased M-spike, low IgA and normalization of lambda light chain. Platelets stable at 60-70,000 without bleeding. With cycle 9 onward 10/02/2020, she will maintain once monthly Daratumumab only (stop Velcade and Dexamethasone). F/u every 2 months. --11/26/2020: Stable M-spike and K/L ratio on Daratumumab maintenance. Restaging F-18 PET/CT orderedfor 12/2020 and will review at next f/u. No signs/symptoms of infection rather than recent hematuria/dysuria--sending UA andCx if indicated. Leukopenia and thrombocytopenia relatively stable on current therapy. --01/21/2021: One year f/u F18 PET/CT with stable FDG avidity, monoclonal labs (SPEP, Quant Igs, kappa/lambda ratio) all pending. Stable CBC and CMP. Persistent pain left hand 2nd MCP joint--increaseduptake on PET/CT but no lesion on left hand xray from 11/2020. Sending for ortho evaluation. For nowcontinue once monthly Daratumumab. F/u with myeloma labs and exam in 2 months, sooner prn. --03/28/2021: 2 month followup visit--worsening neck/upper back/shoulder pain. Ordered thoracic spine MRI and will contact patient with results. Otherwise stable CBC, CMP and slowly improved monoclonal gammopathy (rising IgG to now normal). Next PET/CT F18 scheduled late April and I will f/u at that time. This is a moderate complexity visit over 30 minutes for review of toxicities anddiabetes management, review monoclonal labs, and coordinate thoracic MRI. (2) Acute thoracic back pain Qualifiers: Back pain laterality: left Qualified Code(s): M54.6 - Pain in thoracic spine Pain in neck/upper thoracic pain and left shoulder pain. MRI thoracic spine ordered for further evaluation and potential referral to pain clinic. 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 I previously reviewed her outpatient records from [facility] [place], including review of notes, laboratories, and prior bone marrow biopsy 13 years ago. 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 Most recent platelet count is relatively stable at 54,000 but no clinical bleeding. She waspreviously referred to weight reduction clinic and may have slow improvement of steatohepatitis with lifestyle modification. Unless she has active bleeding or planned surgery, we will continue observation during treatment of active myelomato commence next month as noted above. --Agree with recommendation for EGD surveillance for varices (last was 09/2018--negative). This will be deferred during current COVID-19 epidemic. --Prior vitamin B12 and folic acid are normal, for known history of neuropathy. As noted above, I reviewed the negative M spike on serum protein electrophoresiswith immunofixation, but positive for Bence Murray protein on urine protein electrophoresis. Her Quantitative immunoglobulins IgG, IgA, and I gM were all within normal limits, however her serum kappa lambda light chain analysis showeda predominance of lambda light chains. --Previous labs for lupus anticoagulant with DRVVT, hexagonal phase phospholipid, anti-cardiolipin IgG and IgA, and beta 2 glycoprotein IgG and IgA were within normal limits. --Evaluated in ED November 2019 for epistaxis which resolved. Platelet count wasstable at 12/28/2019 follow-up. She continues surveillance with liver clinic at [facility] and I will continue to follow her every 6 months, sooner if newbleeding issues arise. --04/02/2020: We reviewed informed consent for Daratumumab/Velcade/Dexamethasone for active myeloma therapy. I requested prior liver biopsy results and notes from liver clinic at [facility]. Platelet count in 40,000 range but patient has had no active bleeding following infusion port placement 03/22/2020. --08/13/2020: Cycle 6 week 2 toxicity check with improved thrombocytopenia 79,000 range with no bleeding. We will continue current dosing with Velcade 0.7mg/m2 sq (now once weekly), dexamethasone 20 mg weekly, and full dose daratumumab with close follow-up of liver function and platelet counts. --09/24/2020, 01/21/2021, 03/28/2021: Platelets stable 60-70,000 with no new toxicities, started Daratumumab maintenance 10/02/2020. 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 She wasreferred to Weight Management Clinic to attempt weight reduction through diet and exercise that may prevent further fatty infiltration that may further impairher liver function. [facility] hepatology discussed liver transplant but sheis likely no longer a candidate for this given active myeloma. We chose least hepatotoxic regimen for treatment of her active myeloma with 50% dose reduction of Velcade. Liver function remained stable since start of therapy 04/10/2020. --Requested prior liver biopsy and [facility] liver clinic records. (5) Neutropenia, unspecified Qualifiers: Neutropenia type: unspecified Qualified Code(s): D70.9 - Neutropenia, unspecified Previous worsening neutropenia without infection (current WBC 2000, ANC 600)--thought to be relatedto new diagnosis of active myeloma and no nutritional deficiency. Treating with less myelosuppressive regimen (Velcade rather than Revlimid) for myeloma. Of note no dysplastic changes were noted on bone marrow biopsy. Current white blood cell count was stable with absolute neutrophil count had improved to now 1700. We will continue to follow closely on current therapy and continue acyclovir prophylaxis. (6) Diabetes mellitus Qualifiers: Diabetes mellitus type: type 2 Diabetes mellitus complication status: without complication Suboptimal diabetes control with recent Hemoglobin A1c 8.4--notes recent adjustment in her diabetesregimen by her primary physician. --04/19/2020 follow-up: She notes that since starting weekly dexamethasone therapy at 20mg dose blood sugars were as high as 400. She agreed to consultation with diabetes management clinic and likely requires supplemental insulin doses on steroid days. --09/24/2020, 01/21/2021, 03/28/2021: Now improved diabetes control since following in diabetes management clinic. Should continue to improve off Dexamethasone weekly after 10/02/2020. Continue followupin diabetes management clinic. (7) Obesity Qualifiers: Body mass index: BMI 38.0-38.9 KAPADIA--continue f/u in weight reduction clinic. She is slowly losing weight overthe past 6 months. Defer to PCM. (8) Cancer-related pain Improved symptoms after palliative radiation to bilateral hips--one dose 02/07/2020. Will continue tofollow on myeloma chemotherapy. Extensive, but stable bone involvement on F-18 PET/CT 12/2020. Persistent left index finger MTPpain, swelling, and decreased range of motion. Sending to orthopedic surgery todetermine if joint injection or biopsy indicated for myeloma involvement vs. degenerative joint disease. (9) Encounter for antineoplastic immunotherapy Tolerating Daratumumab maintenance well without significant toxicities. - Chemo Plan Chemo Plan (Dose, Rate, Freq): Palliative radiation to 02/07/2020, deferred active therapy for myeloma for 8 weeks due to current COVID-19 epidemic. Discussed at Malignant Hematology Tumor Board early March to determine optimal regimen given her comorbidities. --04/10/2020: cycle 1, day 1 weekly dexamethasone 20 mg IV (careful to watch bloodsugars with diabetes and known hepatic dysfunction), decreased dose of bortezomib 0.7 mg/m? twice weekly for 2 weeks on1 week off (decreased to once weekly after first cycle due to known liver disease and thrombocytopenia), and daratumumab 8mg/kg D1,D2 IV first week, then 16 mg/kg IV weekly --10/02/2020: Started Daratumumab monthly maintenance 16mg/kg IV (stop Velcade and Dexamethasone) Goal of Treatment: Palliative - Time with Patient Time Spent with Patient (Follow Up Visit): 35 minutes Coordination of Care & Counseling Time: Greater than 50% of time spent with patient was for coordination of care (as documented) and [id number] counseling of patient and/or family. Dictated By: Fabiola Marinelli MD DD/ [id number] Signed By: <Electronically signed by MD Fabiola Marinelli> 03/29/21 [address] [facility] Work Phone: [phone] Progress note Author Fabiola Marinelli [facility] January 21, 2021 7:54pmNote Date/TimeMarch 2020 11:12[facility] [place] [id number] Hem/Onc Follow Up Note - OP Signed Patient: Mojgan Pérez MR#: [id number] : 1955 Acct:[id number] Age/Sex: 65 / F Type: REG RCR Copies to: MD Yinka Downey MD~ Subjective Date/Time of Service: Date of Service: 01/21/2021 Time of Service: 11:11 Chief Complaint: Patient is here today for a 2 month follow up visit for multiple myeloma, thrombocytopenia and neutropenia. She is here to reveiw Pet Scan. She has been having problems with constipation HPI: 01/21/2021: Mojgan is accompanied by her daughter for 2 month followup--now Daratumumab maintenance. She notes persistent fatigue and recently added as needed laxatives to stool softener for management of constipation. Persistent left hand pain--correlates to an area of bone uptake on PET/CT. Overall F18 PET/CT appears stable with no new areas if FDG avidity (still extensive bone FDGuptake). We reviewed prior plain xrays of left hand from November--she agrees toevaluation by orthopedic surgery (determine if biopsy or steroid injections). M-spike and kappa/lambda light chains pending. CBC (platelets 60-70,000); CMP stable. Will followup in 2 months with exam and labs. 11/26/2020: Mojgan is accompanied by her daughter for 2 month followup--now Daratumumab maintenance. Stable leukopenia/low platelet 70,000. Notes 3 days of hematuria and mild dysuria. Sending UA and possible culture. Otherwise no new bone pain. Blood sugars stable. M-spike and kappa/lambda light chain ratiostable. Next f/u 2 months after one year f/u PET/CT to determine response to therapy. 09/24/2020: Mojgan presents (accompanied by her daughter) for cycle 8, week 2 followup [id number] mg/kg IV weekly, Dexamethasone 20mg weekly, and Velcade 0.7 mg/m? now sq once weekly for every 3-week cycle (21 days). She notes neuropathy symptoms are stable. Tolerating therapy well without fatigue. No bleeding and thrombocytopenia stable in 60-70,0000 range. On 10/02 she will be due for maintenance therapy with Daratumumab alone once per month. I will f/u with her in 2 months with myeloma labs, sooner as needed. Velcade and Dexamethasone will be stopped after 8 cycles. 08/13/2020: Mojgan is here for cycle 6, week 2 (day 14) daratumumab 16 mg/kg weekly, Velcade 0.7 mg/m? now sq once weekly for every 3-week cycle (21 days), and dexamethasone 20 mg weekly. No new symptoms--improving thrombocytopenia to 79,000 and improved leukopenia. 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 Still has improvement of M-spike, IgA normal and decreased lambda light chain and K/L ratio. We discussed that week 25 in Oct she will change to monthly daratumumab with weekly Velcade (1mg/m2) and Dexamethasone. Continue to follow every 6-8 weeks until maintenance schedule. 06/18/2020: Mojgan is here for cycle 3 week 3 (day 21) daratumumab 16 mg/kg weekly, Velcade 0.7 mg/m? now sq once weekly for every 5-week cycle (35 days), and dexamethasone 20 mg weekly. Tolerating well with stable leukopenia and thrombocytopenia. Mild increased symptoms of hand and foot neuropathy, but no limitation in activity. Now following with diabetes management clinic with variable glucosecontrol. We reviewed lower IgA (now M-spike IgG kappa after Daratumumab--previously IgA lambda). Lambda light chain has decreased from 516 to 41.3 to now 18.5 with normalization of K/L ratio. Continue followup myeloma labs in 6 weeks, visit in 8 weeks. 05/21/2020: Mojgan is here for cycle 2 (week 7 overall) daratumumab 16 mg/kg weekly, Velcade 0.7 mg/m? now sq once weekly for every 5-week cycle (35 days), and dexamethasone 20 mg weekly. Tolerating well with stable leukopenia and thrombocytopenia. No significant neuropathy. Noted to have improvement in lambda light chains. No further daratumumab infusion reactions. No infections,stable constipation, pain control improved. No other complaints. Continue monthly f/u with myeloma labs. --Diabetes management--added insulin on dexamethasone days. Hyperglycemia improving. 01/18/2020 (phone followup)--The patient's son was available by phone and her daughter was contactedin a separate phone call as patient presented unaccompanied due to COVID-19 precautions in our clinic during the current epidemic. Bone marrow biopsy results were reviewed as follows from procedure pe rformed 01/26/2020: --Bone marrow biopsy was suboptimal for evaluation. --Increased lambda light chain restricted monoclonal plasma cells (1.9% by flow cytometry, approximately 6% and aspirate count, but 50% by immunohistochemical stains [id number]). Sideroblastic iron present, negative for ring sideroblasts. Peripheral blood smear with mild red blood cell anisocytosis and polychromasia, leukopenia with absolute neutropenia (1000) and thrombocytopenia (54,000) consistent with prior baseline. Note: I discussed the results with Dr. Crook 01/26/2020. Preliminary findings were also discussed with Dr. Cummings 01/27/2020. Morphologic findings, immunohistochemical stains, flow cytometry, and ancillary studies may under represent the extent and severity of disease. The results of FISH myeloma panelwith prognostic markers and cytogenetic analysis are pending. --Given the patient's hip pain and presence of lytic lesions, she meets clinicalcriteria for activemyeloma. Given her hip pain and lytic lesions in weightbearing areas she was offered radiation therapy. She had a limited courseof hypofractionated palliative therapy to bilateral proximal femurs [address] Ahn. We discussed that given the COVID-19 epidemic and absence of othersignificant changes other than bony lesions (normal renal function, normal calcium, stable cytopenias), I would defer active therapy for myeloma for 4 to 6 weeks. Since she has significant history ofliver disease I will discuss her case with Dr. Piter Benavidez at [facility] malignant hematology for optimal regimen. The patient is not a transplant candidate given her nonalcoholic steatohepatitis and chronic thrombocytopenia but may be a candidate for either doublet therapy (Revlimid/dexamethasone) or triplet therapy with either Velcade/Revlimid/dexamethasone or daratumumab/Revlimid/dexamethasone. --02/03/2020: Mojgan presented unaccompanied for follow-up of bone marrow aspiration and biopsy performed by Dr. 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 The patient had been noting increased left hip pain over the past several months andplain films of the pelvis and bilateral femurs did show subtle lucencies in the bilateral proximal femurs corresponding to PET/CT findings but no other additional sclerotic lesions identified. No pathologic fractures were seen. --03/05/2020: Mojgan notes improvement of bilateral hip pain since radiation. No other changes in medical history in the past month--no infections, normal renal function, no hypercalcemia. Stable platelet counts without bleeding. Shewas given written literature regarding Dexamethasone, Velcade (thatwould be dose reduced to 0.7mg/m2 twice weekly), weekly Daratumumab and Revlimid, but I will defer decision of which regimen to use until discussion in malignant hematology tumor board. Also referring for infusion port placement prior to initiating therapy. Sign informed consent prior to initiating therapy. --Discussed with Dr. Benavidez who favors Daratumumab combination--will request prior liver biopsy and records from [facility] liver clinic. The patient and her son (by telephone) expressed understanding and will follow- up as directed in 2 weeks for consent and likely start of therapy. --04/02/2020: Mojgan presents after infusion port placement at [facility] by interventional radiology due to platelet count 40,000--she had increased bruising at site post procedure, but this has completely resolved. Her hip painis well controlled since completion of palliative radiation and no newareas of pain. She has previously reviewed information regarding Daratumumab (first dosesplit 8mg/kg IV D1,D2, then if well tolerated 16mg/kg IV weekly), Velcade at about 50% dose (for liver dysfunction) 0.7mg/m2 D1,D4,D8, D11, and [id number] IV weekly--repeat for every 3 week cycles 1st 3 cycles. She will take chemo class and likely start therapy within 2 weeks with toxicity visit in 3 weeks. Today we reviewed chemotherapy counseling for Daratumumab, Velcade, and Dexamethasone. Common toxicities were reviewed to include infusion reaction including rash/dyspnea/wheezing, myelosuppression, fatigue, nausea, vomiting, constipation, diarrhea, mouth sores, and alopecia. Other toxicities may in cludepneumonitis, neurologic, thromboembolism, hyperglycemia, hepatic and renal toxicities. The patient signed informed consent and will follow-up as directed. --04/19/2020: Mojgan is here for cycle 1 week 2 daratumumab 16 mg/kg weekly, Velcade 0.7 mg/m? twice weekly for first 2 weeks of every 3-week cycle, and dexamethasone 20 mg weekly. She did have an infusion reaction with first daratumumab with dyspnea and flushing but this improved after first dose and shehas not had recurrent infusion reactions. We have continued Velcade despite platelet counts in the 40,000 range without bleeding as we know that her baseline platelet counts remain in this range and she has not had any significant change from her baseline. Dexamethasone has caused hyperglycemia with blood sugars up to 400 and we are referring to diabetes management clinic. Otherwise she denies any significant nausea, emesis, fever, chills, night sweats, constipation, diarrhea, rash, mouthsores, or alopecia. She has not hadany change of baseline neuropathy. Liver function tests remain stable. She notes that her hip pain is well controlled since prior palliative radiation and she saw radiation oncology earlier this week with no new recommendations. I will send her myeloma labs including serum and urine protein electrophoresis, quantitative immunoglobulins, and serum kappa/lambda light chains in 2 weeks andfollow-up with her in 3 weeks. She may be seen sooner if new issues arise. This is a 65-year-old lady on chronic disability has a history of arthritis, diabetes mellitus, hypertension, COPD, GERD, and fibromyalgia [facility]. She states that she was followed with Dr. Kumari prior to his senior care and was told that she had an elevated protein level as well as thrombocytopenia but never had clinical bleeding. She is 4 para4 without complicationsand was never told that she was thrombocytopenic while . She is had multiple prior surgicalprocedures without any clinical bleeding. She had been recommended for a pain procedure with Dr. Wilson but he declined to do the procedure because her platelet count was less than 100,000. For this reason she received 2 platelet transfusions, with little improvement of her platelet count and her second transfusion resulted in throat tightening due to allergy to platelets . She has never beentreated with steroids and has never been told that she has immune thrombocytopenia. She has mild leukopenia with relative neutropenia, absolute neutrophil count of 400-800 and mild lymphocytosis. Hemoglobin is normal. She has not had any bright red blood per rectum or epistaxis. She has no history ofbleeding within the family however does have a mother and sister diagnosed with colon cancer, a brother diagnosed with lung cancer, and another sister diagnosedwith breast cancer. She had prior pain in the right hand mainly at the first MCP joint with some associated swelling and right foot pain and was evaluated by podiatry. She was told that her blood tests were negative forgout. She had screening with MALLORY, CCP, and rheumatoid factor all of which were negative. She says that she previously saw Dr. Petersen for cirrhosis but did not know of any specific therapy. We reviewed these findings from her liver ultrasound ordered by Dr. Benavidez Summer 2016. Initial consultation with me March 16, 2017. --The patient has been followed by me for some time for diagnosis of smoldering myeloma with a prior bone marrow biopsy May 2017 showing 15% plasma cells but the patient remained asymptomatic without bone pain or other CRAB criteria for therapy. She is also noted to have an ascending aortic aneurysm and has chronicliver disease with cirrhosis secondary to nonalcoholic steatohepatitis. She haschronic thrombocytopenia without bleeding ranging from 50-100,000 this is felt to be due to sequestration from her nonalcoholic steatohepatitis. She was previously on a liver transplant list but was recently notified that she is no longer a candidate for liver transplant. She has had chronic pain from f ibromyalgia but noted increasing bilateral hip and upper thigh pain over the last 6 months. She also is followed for EGD/colonoscopy with last documented procedure 09/21/2018: 1. Normal EGD, 2. Mild sigmoid diverticulosis, 3. Internal hemorrhoids, grade 2, 4. Anal fissure with active bleeding cauterized by bipolar cautery Bone osseous survey in June 2019 showed osteopenia and degenerative changes but no lytic or blastic lesion. Patient had an F-18 PET scan 01/02/2020 which showed multiple areas of involvementof bones with increased SUV activity. She was contacted with these results by phone and I recommended bone marrow aspirate and biopsy for assessment and analysis. Her prior labs were reviewed. Her SPEP does not show anymonoclonal gammopathy. On VAHID there appears to be a trace of monoclonal gammopathy. Free light chain ratio is less than 100. There is no evidence of renal sufficiency. Patient is not anemic. She doeshave some abnormal areas on bone scan. - Summary of Therapies Summary of Therapies: 1. 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 2. She underwent a single dose of palliative radiation therapy to bilateral hips, receiving 800 cGyto right and left hip in 1 fraction in separate vaz (with a single isocenter). The treatments were given with AP/PA vaz [id number] MV photons and MLC blocks. 3. Deferred active therapy for myeloma 2 months given COVID-19 epidemic with increased risk of myelosuppression and viral transmission of contacts. --Follow-up 03/05/2020 I discussed her case with Dr. Piter Benavidez at malignant hematology. --Given her significant hepatic dysfunction, I presented her case at malignant hematology tumor board to discuss optimal therapy. 4. Cycle 1 day 1 04/10/2020: Dose reduced Velcade 0.7 mg/m? twice weekly (day 1,day 4, day 8, day 11)every 3 weeks with dexamethasone 20 mg weekly and daratumumab 16 mg/kg weekly of each 21-day cycle.After first week, Velcade decreased to 0.7mg sq weekly due to thrombocytopenia. --We will need to watch liver function, platelet count, and neuropathy closely on Velcade. 5. Cycle 9 day 1 10/02/2020: Daratumumab 16mg/kg once monthly maintenance therapy until progression. ROS Details: All systems reviewed & no additional complaints except as documented Subjective/ROS - Narrative: Constitutional: No Chills, No Diaphoresis, Stable Fatigue, No Fever, No Malaise, No Night Sweats, No Weakness, No Weight Gain, No Weight Loss Gastrointestinal: No Abdominal Pain, No Black Stool, No Bloating, No Bloody Stool, No Constipation,No Diarrhea, No Dysphagia, No Hematemesis, No Nausea, NoPostprandial Pain, No Rectal Bleeding, No Rectal Pain, No Vomiting, Other (chronic gastroesophageal reflux stable) --No jaundice or ascites but patient has longstanding nonalcoholic steatohepatitis with cirrhosis, previously followed by [facility] gastroenterology. Cardiovascular: No Chest Pain, No Edema, No Palpitations, No Syncope Genitourinary: No Discharge, No Dysuria, No Flank Pain, Frequency (chronic andunchanged), Resolved Hematuria, No Incontinence, No Nocturia, No Urgency, No Urinary Retention Musculoskeletal: + Persistent left second MTP joint pain and swelling. Improvement of prior bilateral hip/thigh pain since radiation; positive for intermittent lumbar back pain, No Chest Wall Tenderness, Improvement of prior Joint Pain, Muscle Stiffness, Myalgia (history of fibromyalgia), No Neck Pain (reports known cervical disc disease) --unremarkable skeletal survey June 2019. 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 12/2020: F-18 PET/CT stable. HEENT: No Blurred Vision, No Discharge, No Ear Pain, No Epistaxis, No Rhinorrhea, No Sore Throat--patient was seen in emergency department November 2019 with persistent epistaxis. She was treated withnasal clip and packing andwas advised to continue Afrin. No recurrent bleeding. Respiratory: No Cough, No Hemoptysis, + Shortness of Breath (chronic and unchanged due to COPD), NoSputum, No Wheezing--shortness of breath with daratumumab reaction dose 1 04/10/2020 (given a split dose over 2 days). No recurrent reaction since first dose. Neurological: No Dizziness, Stable Numbness/Tingling (reports long-standing bilateral foot numbness--unchanged since starting low-dose Velcade 04/10/2020), NoPre-existing Deficit (no history of stroke or seizure), intermittent headache Hematologic/Lymphatic: No significant bleeding thrombocytopenia from sequestration, Bruises Easily,No Enlarged Lymph Nodes, Other (reports allergyto prior platelet transfusion) Endocrine: Excessive Sweating (hot flashes, postmenopausal) Flushing, No Intolerance to Cold, Intolerance to Heat Psychiatric: No Depressed Mood, No Insomnia Integumentary: No Jaundice, No Lesions, No Rash Allergic/Immunology: No Pruritus PMFSH - History Attestation statement: The following information was validated with the patient. Source: Old Records Reviewed - Medical History Medical History: Medical History (Last Reviewed 01/21/21 @ 19:24 by Fabiola Marinelli MD) Aortic aneurysm COPD (chronic obstructive pulmonary disease) Diabetes Fibromyalgia GERD (gastroesophageal reflux disease) Iron deficiency Neutropenia Smoldering multiple myeloma (SMM) Smoldering myeloma Temporary low platelet count - Surgical History Surgical History: Surgical History (Last Reviewed 01/21/21 @ 19:24 by Fabiola Marinelli MD) H/O: hysterectomy History of appendectomy History of cholecystectomy - Social History Smoking Status: Former smoker Tobacco Type: cigarettes Substance Use Type: None Social History Comments: Lives with son a grandaughter Home Medications & Allergies Allergies latex Allergy (Verified 01/21/21 11:02) Unknown Reaction moxifloxacin [From Avelox] Allergy (Verified 01/21/21 11:02) Hives Quinolones Allergy (Verified 01/21/21 11:02) Unknown Reaction tetracycline Allergy (Verified 01/21/21 11:02) Unknown Reaction Home Medications carvedilol 12.5 mg PO BID 11/20/17 [History Confirmed 01/21/21] duloxetine 60 mg PO DAILY 11/20/17 [History Confirmed 01/21/21] insulin detemir U-100 26 units SUB-Q QHS 11/20/17 [History Confirmed 01/21/21] oxycodone 10 mg PO TID PRN 11/20/17 [History Confirmed 01/21/21] albuterol sulfate 2 puff INHALATION Q6H PRN 11/24/17 [History Confirmed 01/21/21] fluticasone propion-salmeterol [Advair Diskus] 1 inh INHALATION Q12H PRN 11/24/17 [History Confirmed 01/21/21] omeprazole magnesium [Prilosec OTC] 40 mg PO DAILY 11/24/17 [History Confirmed 01/21/21] cholecalciferol (vitamin D3) [Vitamin D3] 1,000 unit PO DAILY 04/13/19 [History Confirmed 01/21/21] metformin 500 mg PO BID 03/05/20 [History Confirmed 01/21/21] ondansetron HCl [Zofran] 8 mg PO TID PRN #30 tab 04/02/20 [Rx Confirmed 01/21/21] diazepam [Valium] 5 mg PO DIRECTED 1 Days #2 tab 05/21/20 [Rx Confirmed 01/21/21] insulin NPH isoph U-100 human [Novolin N NPH U-100 Insulin] 20 unit SUBCUT DIRECTED 05/21/20 [History Confirmed 01/21/21] nystatin 100,000 unit BUCCAL DAILY 90 Days #500 ml 06/18/20 [Rx Confirmed 01/21/21] semaglutide [Ozempic] 0.5 mg SUBCUT QWEEK 09/24/20 [History Confirmed 01/21/21] cyanocobalamin (vitamin B-12) 5,000 mcg PO QWEEK 10/29/20 [History Confirmed 01/21/21] azithromycin [Zithromax Z-Emiliano] 250 mg PO DAILY 11/26/20 [History Confirmed 01/21/21] dexamethasone 20 mg PO ONCE 90 Days #60 tab 11/29/20 [Rx Confirmed 01/21/21] potassium chloride 10 meq PO DAILY #30 cap 12/17/20 [Rx Confirmed 01/21/21] acyclovir 400 mg PO BID 90 Days #180 tab 01/10/21 [Rx Confirmed 01/21/21] Objective - Height/Weight Height/Weight: Height 5 ft 2 in Weight 100.244 kg BSA for Today's Weight 2.10 - Vital Signs Vital Signs: 01/21/21 11:02 Temperature 97.6 F Pulse Rate [Left Brachial] 87 Respiratory Rate 20 Blood Pressure [Left Arm] 128/83 02 Sat by Pulse Oximetry 96 - Pain Bilateral Leg Pain Intensity: 5 Bilateral Shoulder Pain Intensity: 6 Generalized Pain Intensity: 3 Bilateral Hip Pain Intensity: 5 Left Hip Pain Intensity: 4 Lower Back Pain Intensity: 7 Left Neck Pain Intensity: 4 Left index finger Pain Intensity: 4 - Emotional Needs Assessment Emotional Needs Assessment: Emotional Needs Identified? No Physical Exam Narrative: Patient is alert and oriented x3. HEAD / FACE: Normocephalic. No tenderness to palpation over scalp, no sinus tenderness to palpation. EYES: Pupils are equal and reactive to light. Conjunctivae and lids are benign in appearance. Ocular movement intact. EARS: Hearing grossly intact. NOSE / MOUTH / THROAT: Nose, mouth, tongue and oropharynx exam deferred due to coronavirus-19 pandemic (mask in place). NECK / THYROID: Neck is supple. Thyroid is symmetrical, without thyromegaly, masses or palpable nodules. LYMPHATIC: No palpable cervical, supraclavicular, axillary, or inguinal adenopathy. RESPIRATORY: Normal inspection. Lungs clear to auscultation and percussion. No wheezing, rales, rhonchi or rubs. Normal effort. Right chest wall infusion portwithout erythema. CARDIOVASCULAR: Regular rate and rhythm. No murmurs, gallops, or rubs. VASCULAR: Carotid, radial, femoral and pedal pulses present bilaterally. No bruits. ABDOMEN: Bowel sounds normoactive. Soft, nontender and non-distended. No hepatosplenomegaly. No masses. GENITOURINARY: No CVA tenderness. No suprapubic fullness or tenderness. No groinadenopathy. No evidence of hernias. INTEGUMENTARY: The skin is unremarkable. No rashes. No suspicious lesions. No bruising or petechiaenoted. BACK / SPINE: The back is nontender to percussion over vertebral bodies or SI joints. No step off deformity. MUSCULOSKELETAL: Normal musculature, decreased ROM left hand grasp, swelling andTTP over left indexMTP joint, no crepitus. EXTREMITIES: 1+ bilateral leg edema. No cyanosis or clubbing. No Destini sign. NEUROLOGICAL: Alert and oriented. Cranial nerves intact. No gross motor or sensory deficits, patient ambulates unassisted. PSYCHIATRIC: No anxiety or evidence of depression. - ECOG Performance Status ECOG Score: 2 Results - Labs Labs: Diagram of Most Recent CBC and CMP 12/26/20 14:05 12/26/20 14:05 01/21/2021: WBC 3000, ANC 1100, Hg 11.1, Plt 66,000 Glu 83, Na 138, K 3.7, BUN 9, Creat 0.51, Ca 8.9, TB 0.9, ALT 26, AST 18, AP 82,TP 5.2, Alb 3.5 (SPEP, Quant Ig, kappa/lambda light chain ratio pending). - Impressions Date of Service: 01/14/21 PET/PET f-18 bone subq (nopr): restaging multiple myeloma Copies to: MD Yinka Downey MD Patterson, Richard D Jr, MD~ Whole body PET-CT 01/14/2021. CLINICAL DATA: Multiple myeloma. TECHNIQUE: Nondiagnostic CT of the whole body was performed for anatomic localization and attenuation correction. Positron emission tomography (PET) of the whole body was then performed 1 hour after the intravenous administration of10.2 mCi of F-18 sodium fluoride (Na-F). The [...] foot. Note is otherwise made of an Fnnnwj-m-Ltla on theright. Atherosclerotic disease is seen. The gallbladder is surgically absent. The uterus is also surgically absent. There is a suprapubic ventral hernia containing fat without acute complication. PET/PET f-18 bone subq (nopr) IMPRESSION: Relatively stable findings. Impression dictated by: Mansoor aVca Jr., M.D.01/14/2021 7:09 PM XR hand LT min 3V* COMPARISON: None [...] OF THE LEFT HAND, MORE PRONOUNCED AT THEFIRST CARPOMETACARPAL JOINT. Impression dictated by: Talha Dexter M.D.11/19/2020 11:19 AM Assessment and Plan - TNM Staging Staging: Stage IIIA Multiple Myeloma (Durie Boring criteria) (1) Multiple myeloma Qualifiers: Multiple myeloma remission status: not in remission Qualified Code(s): C90.00 - Multiple myeloma not having achieved remission Mojgan 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 She has high risk cytogenetics and I [facility] Her persistent thrombocytopenia made her ineligible for any clinical trials, and preventedher from receiving local pain procedures given her chronic low back pain. --05/2017 PET/CT images and reports performed for staging to exclude bone involvement with myeloma. 2 indeterminate areas of uptake thought to be degenerative arthritis vs early bone findings of myeloma (right parietooccipitalarea and upper sternum). She has remained asymptomatic [...] showed no lytic lesions and she has stableshoulder, hand, and right SI joint pain (although likely due to fibromyalgia. --Prior osseous survey 07/01/2019 showed osteopenia but no compression fractures or lytic lesions were identified. She had no significant change in myeloma labs(mild increase of urine M-spike, kappa/lambda ratio, and normal serum M- spike and quant immunoglobulins). Urine protein still undetectable, therefore will continue surveillance every 6 months with the same labs--no hypercalcemia, renaldysfunction (or proteinuria), anemia, or new bone symptoms. [...] proteins with urine M spike 43.1 but totalprotein 34.4, with no reported urine creatinine. --We deferred immunosuppressive chemotherapy for about 1 month due to control ofsymptoms after palliative radiation and concern of potential peak of COVID-19 inlate January early March. --She presented for follow-up 03/05/2020 and we discussed potential therapy options (with son available by phone). --I discussed her case with Dr. Piter Benavidez of malignant hematology, possibly presenting the patient in hematology tumor board at [facility]. --Infusion port placed 03/22/2020 at [facility] due to low platelets. No complications. --03/12/2020: Myeloma labs with no serum M-spike, + urine M spike 22.2mg/24h (14%). Immunofixation IgA lambda specificity. IgA normal 227, Serum kappa 20.6, serum lambda 516.7, Free kappa/lambda ratio0.04. Normal renal function and calcium. Lower ANC 600 and platelets 40,000 --04/10/2020: Started cycle 1 day 1 of weekly dexamethasone 20 mg IV (careful to watch blood sugars with diabetes and known hepatic dysfunction), decreased dose of bortezomib 0.7 mg/m? twice weekly for2 weeks on 1 week off (due to known liver disease and thrombocytopenia), and daratumumab 8mg/kg D1,D2 IV first week,then 16 mg/kg IV weekly and we may consider Revlimid as a 4th medication if needed (deferred for worsening neutropenia and thrombocytopenia--I am reluctant to add this therapy initially). --She has baseline cirrhosis with chronic thrombocytopenia and I am attempting to treat her with the least myelosuppressive regimen after 2 month deferral of therapy due to COVID-19 pandemic noted above. Patient does not have any currentsigns or symptoms of infection. On Acyclovir 400mg bid for VZV prophylaxis. --We requested prior liver biopsy from [facility] for review of the extentof her known liver dysfunction. It is doubtful she will be a high-dose chemotherapy/peripheral blood stem cell transplant candidate given her history of cirrhosis and chronic cytopenias. --04/19/2020 toxicity follow-up: Other than daratumumab reaction with cycle 1 day1 and hyperglycemiasecondary to dexamethasone, she has not had any other new toxicities of therapy thrombocytopenia remains in the 40,000 range without bleeding and we will continue treating with 50% dose Velcade as long as she doesnot have worsening hepatic function, thrombocytopenia, or neuropathy. I am sending herto diabetes management clinic for her hyperglycemia to adjust her insulin regimen (patient has previously discussed this with her primary physician who agrees). --05/21/2020: Tolerating weekly daratumumab, bortezomib, dexamethasone well. Diabetes management improving. Thrombocytopenia stable in 50,000 range without bleeding. --05/03/2020: Myeloma labs with no serum M-spike (not performed), + urine M spike now resolved. Immunofixation IgA lambda specificity. IgA normal 112, Serum kappa 7.8, serum lambda 41.3, Free kappa/lambda ratio 0.19 (improved). Normal renal function and calcium. Mildly improved ANC 900 and platelets 54,000 --06/18/2020: No new symptoms on weekly daratumumab, bortezomib, dexamethasone after dose reductionsof bortezomib for cytopenias and neuropathy. Myeloma labsshow lower IgA 72. M-spike IgG kappa afterDaratumumab--previously IgA lambda. Lambda light chain has decreased from 516 to 41.3 to now 18.5 with normalizationof K/L ratio. --08/13/2020: Improving thrombocytopenia (79,000) and decreasing M-spike, IgA and lambda light chain. Next myeloma f/u with labs in 6 weeks, sooner prn. --09/24/2020: Now completing cycle 8 Daratumumab/Velcade/Dexamethasone with decreased M-spike, low IgA and normalization of lambda light chain. Platelets stable at 60-70,000 without bleeding. With cycle 9 onward 10/02/2020, she will maintain once monthly Daratumumab only (stop Velcade and Dexamethasone). F/u every 2 months. --11/26/2020: Stable M-spike and K/L ratio on Daratumumab maintenance. Restaging F-18 PET/CT orderedfor 12/2020 and will review at next f/u. No signs/symptoms of infection rather than recent hematuria/dysuria--sending UA andCx if indicated. Leukopenia and thrombocytopenia relatively stable on current therapy. --01/21/2021: One year f/u F18 PET/CT with stable FDG avidity, monoclonal labs (SPEP, Quant Igs, kappa/lambda ratio) all pending. Stable CBC and CMP. Persistent pain left hand 2nd MCP joint--increaseduptake on PET/CT but no lesion on left hand xray from 11/2020. Sending for ortho evaluation. For nowcontinue once monthly Daratumumab. F/u with myeloma labs and exam in 2 months, sooner prn. This is a high complexity visit over 45 minutes for review of toxicities and diabetes management, images/reports of PET/CT, and coordinate orthopedic evaluation. I previously spoke with Dr. Benavidez regarding treatment options and coordinated [facility] malignant hematology tumor board presentation. 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 I previously reviewed her outpatient records from [facility], including review of notes, laboratories, and prior bone marrow biopsy 13 years ago. 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 Most recent platelet count is relatively stable at 54,000 but no clinical bleeding. She waspreviously referred to weight reduction clinic and may have slow improvement of steatohepatitis with lifestyle modification. Unless she has active bleeding or planned surgery, we will continue observation during treatment of active myelomato commence next month as noted above. --Agree with recommendation for EGD surveillance for varices (last was 09/2018--negative). This will be deferred during current COVID-19 epidemic. --Prior vitamin B12 and folic acid are normal, for known history of neuropathy. As noted above, I reviewed the negative M spike on serum protein electrophoresiswith immunofixation, but positive for Bence Murray protein on urine protein electrophoresis. Her Quantitative immunoglobulins IgG, IgA, and I gM were all within normal limits, however her serum kappa lambda light chain analysis showeda predominance of lambda light chains. --Previous labs for lupus anticoagulant with DRVVT, hexagonal phase phospholipid, anti-cardiolipin IgG and IgA, and beta 2 glycoprotein IgG and IgA were within normal limits. --Evaluated in ED November 2019 for epistaxis which resolved. Platelet count wasstable at 12/28/2019 follow-up. She continues surveillance with liver clinic at [facility] and I will continue to follow her every 6 months, sooner if newbleeding issues arise. --04/02/2020: We reviewed informed consent for Daratumumab/Velcade/Dexamethasone for active myeloma therapy. I requested prior liver biopsy results and notes from liver clinic at [facility]. Platelet count in 40,000 range but patient has had no active bleeding following infusion port placement 03/22/2020. --08/13/2020: Cycle 6 week 2 toxicity check with improved thrombocytopenia 79,000 range with no bleeding. We will continue current dosing with Velcade 0.7mg/m2 sq (now once weekly), dexamethasone 20 mg weekly, and full dose daratumumab with close follow-up of liver function and platelet counts. --09/24/2020, 01/21/2021: Platelets stable 60-70,000 with no new toxicities, started Daratumumab maintenance 10/02/2020. 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 She wasreferred to [facility] to attempt weight reduction through diet and exercise that may prevent further fatty infiltration that may further impairher liver function. [facility] hepatology discussed liver transplant but sheis likely no longer a candidate for this given active myeloma. We chose least hepatotoxic regimen for treatment of her active myeloma with 50% dose reduction of Velcade. Liver function remained stable since start of therapy 04/10/2020. --Requested prior liver biopsy and [facility] liver clinic records. (4) Neutropenia, unspecified Qualifiers: Neutropenia type: unspecified Qualified Code(s): D70.9 - Neutropenia, unspecified Previous worsening neutropenia without infection (current WBC 2000, ANC 600)--thought to be relatedto new diagnosis of active myeloma and no nutritional deficiency. Treating with less myelosuppressive regimen (Velcade rather than Revlimid) for myeloma. Of note no dysplastic changes were noted on bone marrow biopsy. Current white blood cell count was stable with absolute neutrophil count had improved to 1603-3468. We will continue to follow closely on current therapy and continue acyclovir prophylaxis. (5) Diabetes mellitus Qualifiers: Diabetes mellitus type: type 2 Diabetes mellitus complication status: without complication Suboptimal diabetes control with recent Hemoglobin A1c 8.4--notes recent adjustment in her diabetesregimen by her primary physician. --04/19/2020 follow-up: She notes that since starting weekly dexamethasone therapy at 20mg dose blood sugars were as high as 400. She agreed to consultation with diabetes management clinic and likely requires supplemental insulin doses on steroid days. --09/24/2020, 01/21/2021: Now improved diabetes control since following in diabetes management clinic. Should continue to improve off Dexamethasone weeklyafter 10/02/2020. Continue followup in diabetesmanagement clinic. (6) Obesity Qualifiers: Body mass index: BMI 40.0-44.9 KAPADIA--continue f/u in weight reduction clinic. Defer to PCM. (7) Cancer-related pain Improved symptoms after palliative radiation to bilateral hips--one dose 02/07/2020. Will continue tofollow on myeloma chemotherapy. Extensive, but stable bone involvement on F-18 PET/CT 12/2020. Persistent left index finger MTPpain, swelling, and decreased range of motion. Sending to orthopedic surgery todetermine if joint injection or biopsy indicated for myeloma involvement vs. degenerative joint disease. (8) Encounter for antineoplastic immunotherapy Tolerating Daratumumab maintenance well without significant toxicities. - Chemo Plan Chemo Plan (Dose, Rate, Freq): Palliative radiation to 02/07/2020, deferred active therapy for myeloma for 8 weeks due to current COVID-19 epidemic. Discussed at Malignant Hematology Tumor Board early March to determine optimal regimen given her comorbidities. --04/10/2020: cycle 1, day 1 weekly dexamethasone 20 mg IV (careful to watch bloodsugars with diabetes and known hepatic dysfunction), decreased dose of bortezomib 0.7 mg/m? twice weekly for 2 weeks on1 week off (decreased to once weekly after first cycle due to known liver disease and thrombocytopenia), and daratumumab 8mg/kg D1,D2 IV first week, then 16 mg/kg IV weekly --10/02/2020: Started Daratumumab monthly maintenance 16mg/kg IV (stop Velcade and Dexamethasone) Goal of Treatment: Palliative - Time with Patient Time Spent with Patient (Follow Up Visit): 45 minutes or more Coordination of Care & Counseling Time: Greater than 50% of time spent with patient was for coordination of care (as documented) and [id number] counseling of patient and/or family. Dictated By: Fabiola Marinelli MD DD/ 1111 Signed By: <Electronically signed by MD Fabiola Marinelli> 01/21/211953 [facility] Work Phone: [phone]) 170-671901-26-2021 Progress note Author Fabiola Marinelli [facility] November 27, 2020 9:17amNote Date/TimeJan2020 10:36[facility] [place] [address] Hem/Onc Follow Up Note - OP Signed Patient: Mojgan Pérez MR#: [id number] : 1955 Acct:[id number] Age/Sex: 65 / F Type: REG RCR Copies to: MD Yinka Downey MD~ Subjective Date/Time of Service: Date of Service: 11/26/2020 Time of Service: 10:35 Chief Complaint: Patient is here today for a 2 month follow up visit for multiple myelmoa, thrombocytopenia and neutropenia. She is here to go over labwork. She started yesterday having blood clots with urination. She also reports painful urination HPI: 11/26/2020: Mojgan is accompanied by her daughter for 2 month followup--now Daratumumab maintenance. Stable leukopenia/low platelet 70,000. Notes 3 days of hematuria and mild dysuria. Sending UA and possible culture. Otherwise no new bone pain. Blood sugars stable. M-spike and kappa/lambda light chain ratiostable. Next f/u 2 months after one year f/u PET/CT to determine response to therapy. 09/24/2020: Mojgan presents (accompanied by her daughter) for cycle 8, week 2 followup [id number] mg/kg IV weekly, Dexamethasone 20mg weekly, and Velcade 0.7 mg/m? now sq once weekly for every 3-week cycle (21 days). She notes neuropathy symptoms are stable. Tolerating therapy well without fatigue. No bleeding and thrombocytopenia stable in 60-70,0000 range. On 10/02 she will be due for maintenance therapy with Daratumumab alone once per month. I will f/u with her in 2 months with myeloma labs, sooner as needed. Velcade and Dexamethasone will be stopped after 8 cycles. 08/13/2020: Mojgan is here for cycle 6, week 2 (day 14) daratumumab 16 mg/kg weekly, Velcade 0.7 mg/m? now sq once weekly for every 3-week cycle (21 days), and dexamethasone 20 mg weekly. No new symptoms--improving thrombocytopenia to 79,000 and improved leukopenia. 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 Still has improvement of M-spike, IgA normal and decreased lambda light chain and K/L ratio. We discussed that week 25 in Oct she will change to monthly daratumumab with weekly Velcade (1mg/m2) and Dexamethasone. Continue to follow every 6-8 weeks until maintenance schedule. 06/18/2020: Mojgan is here for cycle 3 week 3 (day 21) daratumumab 16 mg/kg weekly, Velcade 0.7 mg/m? now sq once weekly for every 5-week cycle (35 days), and dexamethasone 20 mg weekly. Tolerating well with stable leukopenia and thrombocytopenia. Mild increased symptoms of hand and foot neuropathy, but no limitation in activity. Now following with diabetes management clinic with variable glucosecontrol. We reviewed lower IgA (now M-spike IgG kappa after Daratumumab--previously IgA lambda). Lambda light chain has decreased from 516 to 41.3 to now 18.5 with normalization of K/L ratio. Continue followup myeloma labs in 6 weeks, visit in 8 weeks. 05/21/2020: Mojgan is here for cycle 2 (week 7 overall) daratumumab 16 mg/kg weekly, Velcade 0.7 mg/m? now sq once weekly for every 5-week cycle (35 days), and dexamethasone 20 mg weekly. Tolerating well with stable leukopenia and thrombocytopenia. No significant neuropathy. Noted to have improvement in lambda light chains. No further daratumumab infusion reactions. No infections,stable constipation, pain control improved. No other complaints. Continue monthly f/u with myeloma labs. --Diabetes management--added insulin on dexamethasone days. Hyperglycemia improving. --- ------- 01/18/2020 (phone followup)--The patient's son was available by phone and her daughter was contactedin a separate phone call as patient presented unaccompanied due to COVID-19 precautions in our clinic during the current epidemic. Bone marrow biopsy results were reviewed as follows from procedure pe rformed 01/26/2020: --Bone marrow biopsy was suboptimal for evaluation. --Increased lambda light chain restricted monoclonal plasma cells (1.9% by flow cytometry, approximately 6% and aspirate count, but 50% by immunohistochemical stains [id number]). Sideroblastic iron present, negative for ring sideroblasts. Peripheral blood smear with mild red blood cell anisocytosis and polychromasia, leukopenia with absolute neutropenia (1000) and thrombocytopenia (54,000) consistent with prior baseline. Note: I discussed the results with Dr. Crook 01/26/2020. Preliminary findings were also discussed with Dr. Cummings 01/27/2020. Morphologic findings, immunohistochemical stains, flow cytometry, and ancillary studies may under represent the extent and severity of disease. The results of FISH myeloma panelwith prognostic markers and cytogenetic analysis are pending. --Given the patient's hip pain and presence of lytic lesions, she meets clinicalcriteria for activemyeloma. Given her hip pain and lytic lesions in weightbearing areas she was offered radiation therapy. She had a limited courseof hypofractionated palliative therapy to bilateral proximal femurs [address] Ahn. We discussed that given the COVID-19 epidemic and absence of othersignificant changes other than bony lesions (normal renal function, normal calcium, stable cytopenias), I would defer active therapy for myeloma for 4 to 6 weeks. Since she has significant history ofliver disease I will discuss her case with Dr. Piter Benavidez at [facility] malignant hematology for optimal regimen. The patient is not a transplant candidate given her nonalcoholic steatohepatitis and chronic thrombocytopenia but may be a candidate for either doublet therapy (Revlimid/dexamethasone) or triplet therapy with either Velcade/Revlimid/dexamethasone or daratumumab/Revlimid/dexamethasone. --02/03/2020: Mogjan presented unaccompanied for follow-up of bone marrow aspiration and biopsy performed by Dr. 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 The patient had been noting increased left hip pain over the past several months andplain films of the pelvis and bilateral femurs did show subtle lucencies in the bilateral proximal femurs corresponding to PET/CT findings but no other additional sclerotic lesions identified. No pathologic fractures were seen. --03/05/2020: Mojgan notes improvement of bilateral hip pain since radiation. No other changes in medical history in the past month--no infections, normal renal function, no hypercalcemia. Stable platelet counts without bleeding. Shewas given written literature regarding Dexamethasone, Velcade (thatwould be dose reduced to 0.7mg/m2 twice weekly), weekly Daratumumab and Revlimid, but I will defer decision of which regimen to use until discussion in malignant hematology tumor board. Also referring for infusion port placement prior to initiating therapy. Sign informed consent prior to initiating therapy. --Discussed with Dr. Benavidez who favors Daratumumab combination--will request prior liver biopsy and records from [facility] liver clinic. The patient and her son (by telephone) expressed understanding and will follow- up as directed in 2 weeks for consent and likely start of therapy. --04/02/2020: Mojgan presents after infusion port placement at [facility] by interventional radiology due to platelet count 40,000--she had increased bruising at site post procedure, but this has completely resolved. Her hip painis well controlled since completion of palliative radiation and no newareas of pain. She has previously reviewed information regarding Daratumumab (first dosesplit 8mg/kg IV D1,D2, then if well tolerated 16mg/kg IV weekly), Velcade at about 50% dose (for liver dysfunction) 0.7mg/m2 D1,D4,D8, D11, and [id number] IV weekly--repeat for every 3 week cycles 1st 3 cycles. She will take chemo class and likely start therapy within 2 weeks with toxicity visit in 3 weeks. Today we reviewed chemotherapy counseling for Daratumumab, Velcade, and Dexamethasone. Common toxicities were reviewed to include infusion reaction including rash/dyspnea/wheezing, myelosuppression, fatigue, nausea, vomiting, constipation, diarrhea, mouth sores, and alopecia. Other toxicities may in cludepneumonitis, neurologic, thromboembolism, hyperglycemia, hepatic and renal toxicities. The patient signed informed consent and will follow-up as directed. --04/19/2020: Mojgan is here for cycle 1 week 2 daratumumab 16 mg/kg weekly, Velcade 0.7 mg/m? twice weekly for first 2 weeks of every 3-week cycle, and dexamethasone 20 mg weekly. She did have an infusion reaction with first daratumumab with dyspnea and flushing but this improved after first dose and shehas not had recurrent infusion reactions. We have continued Velcade despite platelet counts in the 40,000 range without bleeding as we know that her baseline platelet counts remain in this range and she has not had any significant change from her baseline. Dexamethasone has caused hyperglycemia with blood sugars up to 400 and we are referring to diabetes management clinic. Otherwise she denies any significant nausea, emesis, fever, chills, night sweats, constipation, diarrhea, rash, mouthsores, or alopecia. She has not hadany change of baseline neuropathy. Liver function tests remain stable. She notes that her hip pain is well controlled since prior palliative radiation and she saw radiation oncology earlier this week with no new recommendations. I will send her myeloma labs including serum and urine protein electrophoresis, quantitative immunoglobulins, and serum kappa/lambda light chains in 2 weeks andfollow-up with her in 3 weeks. She may be seen sooner if new issues arise. --- This is a 65-year-old lady on chronic disability has a history of arthritis, diabetes mellitus, hypertension, COPD, GERD, and fibromyalgia who [facility] for chronic mild to moderate thrombocytopenia. She states that she was followed with Dr. Kumari prior to his senior care and was told that she had an elevated protein level as well as thrombocytopenia but never had clinical bleeding. She is 4 para4 without complicationsand was never told that she was thrombocytopenic while . She is had multiple prior surgicalprocedures without any clinical bleeding. She had been recommended for a pain procedure with Dr. Wilson but he declined to do the procedure because her platelet count was less than 100,000. For this reason she received 2 platelet transfusions, with little improvement of her platelet count and her second transfusion resulted in throat tightening due to allergy to platelets . She has never beentreated with steroids and has never been told that she has immune thrombocytopenia. She has mild leukopenia with relative neutropenia, absolute neutrophil count of 400-800 and mild lymphocytosis. Hemoglobin is normal. She has not had any bright red blood per rectum or epistaxis. She has no history ofbleeding within the family however does have a mother and sister diagnosed with colon cancer, a brother diagnosed with lung cancer, and another sister diagnosedwith breast cancer. She had prior pain in the right hand mainly at the first MCP joint with some associated swelling and right foot pain and was evaluated by podiatry. She was told that her blood tests were negative forgout. She had screening with MALLORY, CCP, and rheumatoid factor all of which were negative. She says that she previously saw Dr. Petersen for cirrhosis but did not know of any specific therapy. We reviewed these findings from her liver ultrasound ordered by Dr. Benavidez Summer 2016. Initial consultation with me March 16, 2017. --The patient has been followed by me for some time for diagnosis of smoldering myeloma with a prior bone marrow biopsy May 2017 showing 15% plasma cells but the patient remained asymptomatic without bone pain or other CRAB criteria for therapy. She is also noted to have an ascending aortic aneurysm and has chronicliver disease with cirrhosis secondary to nonalcoholic steatohepatitis. She haschronic thrombocytopenia without bleeding ranging from 50-100,000 this is felt to be due to sequestration from her nonalcoholic steatohepatitis. She was previously on a liver transplant list but was recently notified that she is no longer a candidate for liver transplant. She has had chronic pain from f ibromyalgia but noted increasing bilateral hip and upper thigh pain over the last 6 months. She also is followed for EGD/colonoscopy with last documented procedure 09/21/2018: 1. Normal EGD, 2. Mild sigmoid diverticulosis, 3. Internal hemorrhoids, grade 2, 4. Anal fissure with active bleeding cauterized by bipolar cautery Bone osseous survey in June 2019 showed osteopenia and degenerative changes but no lytic or blastic lesion. Patient had an F-18 PET scan 01/02/2020 which showed multiple areas of involvementof bones with increased SUV activity. She was contacted with these results by phone and I recommended bone marrow aspirate and biopsy for assessment and analysis. Her prior labs were reviewed. Her SPEP does not show anymonoclonal gammopathy. On VAHID there appears to be a trace of monoclonal gammopathy. Free light chain ratio is less than 100. There is no evidence of renal sufficiency. Patient is not anemic. She doeshave some abnormal areas on bone scan. - Summary of Therapies Summary of Therapies: 1. 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 2. She underwent a single dose of palliative radiation therapy to bilateral hips, receiving 800 cGyto right and left hip in 1 fraction in separate vaz (with a single isocenter). The treatments were given with AP/PA vaz [id number] MV photons and MLC blocks. 3. Deferred active therapy for myeloma 2 months given COVID-19 epidemic with increased risk of myelosuppression and viral transmission of contacts. --Follow-up 03/05/2020 I discussed her case with Dr. Piter Benavidez at malignant hematology. --Given her significant hepatic dysfunction, I presented her case at malignant hematology tumor board to discuss optimal therapy. 4. Cycle 1 day 1 04/10/2020: Dose reduced Velcade 0.7 mg/m? twice weekly (day 1,day 4, day 8, day 11)every 3 weeks with dexamethasone 20 mg weekly and daratumumab 16 mg/kg weekly of each 21-day cycle.After first week, Velcade decreased to 0.7mg sq weekly due to thrombocytopenia. --We will need to watch liver function, platelet count, and neuropathy closely on Velcade. 5. Cycle 9 day 1 scheduled 10/02/2020: Daratumumab 16mg/kg once monthly maintenance therapy until progression. ROS Details: All systems reviewed & no additional complaints except as documented Subjective/ROS - Narrative: Constitutional: No Chills, No Diaphoresis, Stable Fatigue, No Fever, No Malaise, No Night Sweats, No Weakness, No Weight Gain, No Weight Loss Gastrointestinal: No Abdominal Pain, No Black Stool, No Bloating, No Bloody Stool, No Constipation,No Diarrhea, No Dysphagia, No Hematemesis, No Nausea, NoPostprandial Pain, No Rectal Bleeding, No Rectal Pain, No Vomiting, Other (chronic gastroesophageal reflux stable) --No jaundice or ascites but patient has longstanding nonalcoholic steatohepatitis with cirrhosis, previously followed by [facility] gastroenterology. Cardiovascular: No Chest Pain, No Edema, No Palpitations, No Syncope Genitourinary: No Discharge, No Dysuria, No Flank Pain, Frequency (chronic andunchanged), + Hematuria past 3 days as per HPI, No Incontinence, No Nocturia, No Urgency, No Urinary Retention Musculoskeletal: S/p right chest infusion port placement. 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 HEENT: No Blurred Vision, No Discharge, No Ear Pain, No Epistaxis, No Rhinorrhea, No Sore Throat--patient was seen in emergency department November 2019 with persistent epistaxis. She was treated withnasal clip and packing andwas advised to continue Afrin. No recurrent bleeding. Respiratory: No Cough, No Hemoptysis, + Shortness of Breath (chronic and unchanged due to COPD), NoSputum, No Wheezing--shortness of breath with daratumumab reaction dose 1 04/10/2020 (given a split dose over 2 days). No recurrent reaction since first dose. Neurological: No Dizziness, Stable Numbness/Tingling (reports long-standing bilateral foot numbness--unchanged since starting low-dose Velcade 04/10/2020), NoPre-existing Deficit (no history of stroke or seizure), intermittent headache Hematologic/Lymphatic: No significant bleeding thrombocytopenia from sequestration, Bruises Easily,No Enlarged Lymph Nodes, Other (reports allergyto prior platelet transfusion) Endocrine: Excessive Sweating (hot flashes, postmenopausal) Flushing, No Intolerance to Cold, Intolerance to Heat Psychiatric: No Depressed Mood, No Insomnia Integumentary: No Jaundice, No Lesions, No Rash Allergic/Immunology: No Pruritus PMFSH - History Attestation statement: The following information was validated with the patient. Source: Old Records Reviewed - Medical History Medical History: Medical History (Last Reviewed 11/27/20 @ 08:54 by Fabiola Marinelli MD) Aortic aneurysm COPD (chronic obstructive pulmonary disease) Diabetes Fibromyalgia GERD (gastroesophageal reflux disease) Iron deficiency Neutropenia Smoldering multiple myeloma (SMM) Smoldering myeloma Temporary low platelet count - Surgical History Surgical History: Surgical History (Last Reviewed 11/27/20 @ 08:54 by Fabiola Marinelli MD) H/O: hysterectomy History of appendectomy History of cholecystectomy - Social History Smoking Status: Former smoker Tobacco Type: cigarettes Substance Use Type: None Social History Comments: Lives with son a grandaughter Home Medications & Allergies Allergies latex Allergy (Verified 11/26/20 10:23) Unknown Reaction moxifloxacin [From Avelox] Allergy (Verified 11/26/20 10:23) Hives Quinolones Allergy (Verified 11/26/20 10:23) Unknown Reaction tetracycline Allergy (Verified 11/26/20 10:23) Unknown Reaction Home Medications carvedilol 12.5 mg PO BID 11/20/17 [History Confirmed 11/26/20] duloxetine 60 mg PO DAILY 11/20/17 [History Confirmed 11/26/20] insulin detemir U-100 26 units SUB-Q QHS 11/20/17 [History Confirmed 11/26/20] oxycodone 10 mg PO TID PRN 11/20/17 [History Confirmed 11/26/20] albuterol sulfate 2 puff INHALATION Q6H PRN 11/24/17 [History Confirmed 11/26/20] fluticasone propion-salmeterol [Advair Diskus] 1 inh INHALATION Q12H PRN 11/24/17 [History Confirmed 11/26/20] omeprazole magnesium [Prilosec OTC] 40 mg PO DAILY 11/24/17 [History Confirmed 11/26/20] cholecalciferol (vitamin D3) [Vitamin D3] 1,000 unit PO DAILY 04/13/19 [History Confirmed 11/26/20] metformin 500 mg PO BID 03/05/20 [History Confirmed 11/26/20] dexamethasone 20 mg PO ONCE 90 Days #60 tab 04/02/20 [Rx Confirmed 11/26/20] ondansetron HCl [Zofran] 8 mg PO TID PRN #30 tab 04/02/20 [Rx Confirmed 11/26/20] diazepam [Valium] 5 mg PO DIRECTED 1 Days #2 tab 05/21/20 [Rx Confirmed 11/26/20] insulin NPH isoph U-100 human [Novolin N NPH U-100 Insulin] 20 unit SUBCUT DIRECTED 05/21/20 [History Confirmed 11/26/20] nystatin 100,000 unit BUCCAL DAILY 90 Days #500 ml 06/18/20 [Rx Confirmed 11/26/20] acyclovir 400 mg PO BID 90 Days #180 tab 07/23/20 [Rx Confirmed 11/26/20] potassium chloride 10 meq PO DAILY #30 cap 08/29/20 [Rx Confirmed 11/26/20] semaglutide [Ozempic] 0.5 mg SUBCUT QWEEK 09/24/20 [History Confirmed 11/26/20] cyanocobalamin (vitamin B-12) 5,000 mcg PO QWEEK 10/29/20 [History Confirmed 11/26/20] azithromycin [Zithromax Z-Emiliano] 250 mg PO DAILY 11/26/20 [History Confirmed 11/26/20] Objective - Height/Weight Height/Weight: Height 5 ft 2 in Weight 102.965 kg BSA for Today's Weight 2.14 - Vital Signs Vital Signs: 11/26/20 10:23 Temperature 97 F L Pulse Rate [Left Brachial] 102 H Respiratory Rate 20 Blood Pressure [Left Arm] 134/75 02 Sat by Pulse Oximetry 98 - Pain Bilateral Leg Pain Intensity: 5 Bilateral Shoulder Pain Intensity: 6 Generalized Pain Intensity: 3 Bilateral Hip Pain Intensity: 5 Left Hip Pain Intensity: 4 Lower Back Pain Intensity: 7 Left Neck Pain Intensity: 4 Left index finger Pain Intensity: 4 - Emotional Needs Assessment Emotional Needs Assessment: Emotional Needs Identified? No Distress Screening Total 0 Physical Exam Narrative: Patient is alert and oriented x3. HEAD / FACE: Normocephalic. No tenderness to palpation over scalp, no sinus tenderness to palpation. EYES: Pupils are equal and reactive to light. Conjunctivae and lids are benign in appearance. Ocular movement intact. EARS: Hearing grossly intact. NOSE / MOUTH / THROAT: Nose, mouth, tongue and oropharynx exam deferred due to coronavirus-19 pandemic (mask in place). NECK / THYROID: Neck is supple. Thyroid is symmetrical, without thyromegaly, masses or palpable nodules. LYMPHATIC: No palpable cervical, supraclavicular, axillary, or inguinal adenopathy. RESPIRATORY: Normal inspection. Lungs clear to auscultation and percussion. No wheezing, rales, rhonchi or rubs. Normal effort. Right chest wall infusion portwithout erythema. CARDIOVASCULAR: Regular rate and rhythm. No murmurs, gallops, or rubs. VASCULAR: Carotid, radial, femoral and pedal pulses present bilaterally. No bruits. ABDOMEN: Bowel sounds normoactive. Soft, nontender and non-distended. No hepatosplenomegaly. No masses. GENITOURINARY: No CVA tenderness. No suprapubic fullness or tenderness. No groinadenopathy. No evidence of hernias. INTEGUMENTARY: The skin is unremarkable. No rashes. No suspicious lesions. No bruising or petechiaenoted. BACK / SPINE: The back is nontender to percussion over vertebral bodies or SI joints. No step off deformity. MUSCULOSKELETAL: Normal musculature, no joint deformities or abnormalities, normal range of motion for all four extremities. EXTREMITIES: No edema, cyanosis or clubbing. No Destini sign. NEUROLOGICAL: Alert and oriented. Cranial nerves intact. No gross motor or sensory deficits, patient ambulates unassisted. PSYCHIATRIC: No anxiety or evidence of depression. - ECOG Performance Status ECOG Score: 1 Results - Labs Labs: Diagram of Most Recent CBC and CMP 11/19/20 09:55 11/19/20 09:55 Labs - Last 7 Days 11/19/20 10:00: Ur Random Albumin 43.2, U Random Total Protein 24.9, U Pahmc-5-Inhdpcmj (%) 3.4, U Random u-1-Vfvubhbd % 16.1, U Random b-Globulin % 25.4, U Random Gamma Glob % 11.9, U Random M-Jaspal(%) Comment:, Urine Random PEP Note 11/19/20 09:55: Serum Total Protein 5.4 L, Albumin (Send Out) 3.1, Globulin (PEP) 2.3, Albumin/Globulin (PEP) 1.3, Tjdyp-4-Ltzeudlmg 0.3, Adiek-4-Dsldoyoee 0.7, Beta Globulins 0.8, Gamma Globulins 0.4, M-Jaspal 0.1 H, PEP Note , IgG 551 L, IgA 52 L, IgM 22 L, Free [place] LC, Quant 9.5, Free Lambda LC, Quant 25.8, Free [place]/Lambda Ratio 0.37 - Impressions F-18 PET/CT (one year f/u) ordered for 12/2020 for response to therapy assessment. Will review next visit. 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 She has high risk cytogenetics and I [facility] Her persistent thrombocytopenia made her ineligible for any clinical trials, and preventedher from receiving local pain procedures given her chronic low back pain. --05/2017 PET/CT images and reports performed for staging to exclude bone involvement with myeloma. 2 indeterminate areas of uptake thought to be degenerative arthritis vs early bone findings of myeloma (right parietooccipital areaand upper sternum). She has remained asymptomatic in [...] showed no lytic lesions and she has stableshoulder, hand, and right SI joint pain (although likely due to fibromyalgia. --Prior osseous survey 07/01/2019 showed osteopenia but no compression fractures or lytic lesions were identified. She had no significant change in myeloma labs(mild increase of urine M-spike, kappa/lambda ratio, and normal serum M- spike and quant immunoglobulins). Urine protein still undetectable, therefore will continue surveillance every 6 months with the same labs--no hypercalcemia, renaldysfunction (or proteinuria), anemia, or new bone symptoms. [...] proteins with urine M spike 43.1 but totalprotein 34.4, with no reported urine creatinine. --We deferred immunosuppressive chemotherapy for about 1 month due to control ofsymptoms after palliative radiation and concern of potential peak of COVID-19 inlate January early March. --She presented for follow-up 03/05/2020 and we discussed potential therapy options (with son available by phone). --I discussed her case with Dr. Piter Benavidez of malignant hematology, possibly presenting the patient in hematology tumor board at [facility]. --Infusion port placed 03/22/2020 at [facility] due to low platelets. No complications. --03/12/2020: Myeloma labs with no serum M-spike, + urine M spike 22.2mg/24h (14%). Immunofixation IgA lambda specificity. IgA normal 227, Serum kappa 20.6, serum lambda 516.7, Free kappa/lambda ratio0.04. Normal renal function and calcium. Lower ANC 600 and platelets 40,000 --04/10/2020: Started cycle 1 day 1 of weekly dexamethasone 20 mg IV (careful to watch blood sugars with diabetes and known hepatic dysfunction), decreased dose of bortezomib 0.7 mg/m? twice weekly for2 weeks on 1 week off (due to known liver disease and thrombocytopenia), and daratumumab 8mg/kg D1,D2 IV first week,then 16 mg/kg IV weekly and we may consider Revlimid as a 4th medication if needed (deferred for worsening neutropenia and thrombocytopenia--I am reluctant to add this therapy initially). --She has baseline cirrhosis with chronic thrombocytopenia and I am attempting to treat her with the least myelosuppressive regimen after 2 month deferral of therapy due to COVID-19 pandemic noted above. Patient does not have any currentsigns or symptoms of infection. On Acyclovir 400mg bid for VZV prophylaxis. --We requested prior liver biopsy from [facility] for review of the extentof her known liver dysfunction. It is doubtful she will be a high-dose chemotherapy/peripheral blood stem cell transplant candidate given her history of cirrhosis and chronic cytopenias. --04/19/2020 toxicity follow-up: Other than daratumumab reaction with cycle 1 day1 and hyperglycemiasecondary to dexamethasone, she has not had any other new toxicities of therapy thrombocytopenia remains in the 40,000 range without bleeding and we will continue treating with 50% dose Velcade as long as she doesnot have worsening hepatic function, thrombocytopenia, or neuropathy. I am sending [facility] diabetes management clinic for her hyperglycemia to adjust her insulin regimen (patient has previously discussed this with her primary physician who agrees). --05/21/2020: Tolerating weekly daratumumab, bortezomib, dexamethasone well. Diabetes management improving. Thrombocytopenia stable in 50,000 range without bleeding. --05/03/2020: Myeloma labs with no serum M-spike (not performed), + urine M spike now resolved. Immunofixation IgA lambda specificity. IgA normal 112, Serum kappa 7.8, serum lambda 41.3, Free kappa/lambda ratio 0.19 (improved). Normal renal function and calcium. Mildly improved ANC 900 and platelets 54,000 --Restaging myeloma labs (CBC, CMP, SPEP and UPEP with immunofixation, serum kappa/lambda light chain analysis, and quantitative immunoglobulins) ordered in 1 month and I will follow-up with her in 5-6 weeks for toxicity review. --06/18/2020: No new symptoms on weekly daratumumab, bortezomib, dexamethasone after dose reductionsof bortezomib for cytopenias and neuropathy. Myeloma labsnow show lower IgA 72. Now M-spike IgG kappa after Daratumumab--previously IgA lambda. Lambda light chain has decreased from 516 to 41.3 to now 18.5 with normalization of K/L ratio. Continue followup myeloma labs in 6 weeks, visit in8 weeks. Leukopenia and thrombocytopenia relatively stable on current therapy. --08/13/2020: Improving thrombocytopenia (79,000) and decreasing M-spike, IgA and lambda light chain. Next myeloma f/u with labs in 6 weeks, sooner prn. --09/24/2020: Now completing cycle 8 Daratumumab/Velcade/Dexamethasone with decreased M-spike, low IgA and normalization of lambda light chain. Platelets stable at 60-70,000 without bleeding. With cycle 9 onward 10/02/2020, she will maintain once monthly Daratumumab only (stop Velcade and Dexamethasone). F/u every 2 months. --11/26/2020: Stable M-spike and K/L ratio on Daratumumab maintenance. Restaging F-18 PET/CT orderedfor 12/2020 and will review at next f/u. No signs/symptoms of infection rather than recent hematuria/dysuria--sending UA andCx if indicated. Leukopenia and thrombocytopenia relatively stable on current therapy. This is a moderate complexity visit over 30 minutes for review of toxicities anddiabetes management. I previously spoke with Dr. Benavidez regarding treatment options and coordinated [facility] hematology tumor board presentation. (2) Hematuria 3 days gross hematuria--r/o infection vs. stone. UA and culture ordered and will call with results. 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 I previously reviewed her outpatient records from [facility] [place], including review of notes, laboratories, and prior bone marrow biopsy 13 years ago. 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 Most recent platelet count is relatively stable at 54,000 but no clinical bleeding. She was previously referred to weight reduction clinic and may have slow improvement of steatohepatitis with lifestyle modification. Unless she has active bleeding or planned surgery, we will continue observation during treatment of active myelomato commence next month as noted above. --Agree with recommendation for EGD surveillance for varices (last was 09/2018--negative). This will be deferred during current COVID-19 epidemic. --Prior vitamin B12 and folic acid are normal, for known history of neuropathy. As noted above, I reviewed the negative M spike on serum protein electrophoresiswith immunofixation, but positive for Bence Murray protein on urine protein electrophoresis. Her Quantitative immunoglobulins IgG, IgA, and I gM were all within normal limits, however her serum kappa lambda light chain analysis showeda predominance of lambda light chains. --Previous labs for lupus anticoagulant with DRVVT, hexagonal phase phospholipid, anti-cardiolipin IgG and IgA, and beta 2 glycoprotein IgG and IgA were within normal limits. --Evaluated in ED November 2019 for epistaxis which resolved. Platelet count wasstable at 12/28/2019 follow-up. She continues surveillance with liver clinic at [facility] and I will continue to follow her every 6 months, sooner if newbleeding issues arise. --04/02/2020: We reviewed informed consent for Daratumumab/Velcade/Dexamethasone for active myeloma therapy. I requested prior liver biopsy results and notes from liver clinic at [facility]. Platelet count in 40,000 range but patient has had no active bleeding following infusion port placement 03/22/2020. --08/13/2020: Cycle 6 week 2 toxicity check with improved thrombocytopenia 79,000 range with no bleeding. We will continue current dosing with Velcade 0.7mg/m2 sq (now once weekly), dexamethasone 20 mg weekly, and full dose daratumumab with close follow-up of liver function and platelet counts. --09/24/2020, 11/26/2020: Platelets stable 60-70,000 with no new toxicities, started Daratumumab maintenance 10/02/2020. 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 She wasreferred to Weight Management Clinic to attempt weight reduction through diet and exercise that may prevent further fatty infiltration that may further impairher liver function. [facility] hepatology discussed liver transplant but sheis likely no longer a candidate for this given active myeloma. We chose least hepatotoxic regimen for treatment of her active myeloma with 50% dose reduction of Velcade. Liver function remained stable since start of therapy 04/10/2020. --Requested prior liver biopsy and [facility] liver clinic records. (5) Neutropenia, unspecified Qualifiers: Neutropenia type: unspecified Qualified Code(s): D70.9 - Neutropenia, unspecified Previous worsening neutropenia without infection (current WBC 2000, ANC 600)--thought to be relatedto new diagnosis of active myeloma and no nutritional deficiency. Treating with less myelosuppressive regimen (Velcade rather than Revlimid) for myeloma. Of note no dysplastic changes were noted on bone marrow biopsy. Current white blood cell count was stable with absolute neutrophil count had improved to [id number]. We will continue to follow closely on current therapy and continue acyclovir prophylaxis. (6) Diabetes mellitus Qualifiers: Diabetes mellitus type: type 2 Diabetes mellitus complication status: without complication Suboptimal diabetes control with recent Hemoglobin A1c 8.4--notes recent adjustment in her diabetesregimen by her primary physician. --04/19/2020 follow-up: She notes that since starting weekly dexamethasone therapy at 20mg dose blood sugars were as high as 400. She agreed to consultation with diabetes management clinic and likely requires supplemental insulin doses on steroid days. --09/24/2020, 11/26/2020: Now improved diabetes control since following in diabetes management clinic. Should continue to improve off Dexamethasone weeklyafter 10/02/2020. Continue followup in diabetesmanagement clinic. (7) Obesity Qualifiers: Body mass index: BMI 40.0-44.9 KAPADIA--continue f/u in weight reduction clinic. Defer to PCM. (8) Cancer-related pain Improved symptoms after palliative radiation to bilateral hips--one dose 02/07/2020. Will continue tofollow on myeloma chemotherapy. Next F-18 PET/CT 12/2020. (9) Encounter for antineoplastic immunotherapy Tolerating Daratumumab maintenance well without significant toxicities. - Chemo Plan Chemo Plan (Dose, Rate, Freq): Palliative radiation to 02/07/2020, deferred active therapy for myeloma for 8 weeks due to current COVID-19 epidemic. Discussed at Malignant Hematology Tumor Board early March to determine optimal regimen given her comorbidities. --04/10/2020: cycle 1, day 1 weekly dexamethasone 20 mg IV (careful to watch bloodsugars with diabetes and known hepatic dysfunction), decreased dose of bortezomib 0.7 mg/m? twice weekly for 2 weeks on1 week off (decreased to once weekly after first cycle due to known liver disease and thrombocytopenia), and daratumumab 8mg/kg D1,D2 IV first week, then 16 mg/kg IV weekly --10/02/2020: Start Daratumumab monthly maintenance 16mg/kg IV (stop Velcade andDexamethasone) Goal of Treatment: Palliative - Time with Patient Total Time Spent with Patient: 30 min Coordination of Care & Counseling Time: Greater than 50% of time spent with patient was for coordination of care (as documented) and [id number] counseling of patient and/or family. Dictated By: Fabiola Marinelli MD DD/ [id number] Signed By: <Electronically signed by MD Fabiola Marinelli> 11/27/20 0917 [facility] Work Phone: [phone] Progress note Author Silvestre Ahn [facility] October 29, 2020 2:30pmNote Date/TimeDecember 2019 2:26pm[facility] [place] [address] Rad Onc Follow Up Note - OP Signed Patient: Mojgan Pérez MR#: [id number] : 1955 Acct:[id number] Age/Sex: 65 / F Type: REG RCR Copies to: MD Yinka Downey MD~ Subjective - Service Date/Time Date: 10/29/20 Time: 14:26 - Diagnosis Multiple myeloma - Chief Complaint I have no pain in my hips - History of Present Illness 65-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 Marinelli and she also has nonalcoholic steatohepatitis and pancytopenia (her platelets today are 54,000). She had been seen in the liver clinic and liver transplantation was considered but ultimately, it was felt that she is not a candidate for liver transplant. She was seen earlier this year by Dr. Marinelli after an episode of epistaxis which did not recur. She did not have any evidence of gingival bleeding, hematuria or rectal bleeding. Patient complainedof deep aches in the left hip and low back pain which had become more pronouncedover last several weeks. Her skeletal survey about 6 months ago had shown pronounced osteopenia and osteoarthritis but because of her increasing pains, Dr. Marinelli ordered a PET/CT scan which was done on 01/02/2020. The PET scan showedmultiple areas of abnormal radiotracer uptake including the calvarium, cervical spine, thoracic spine, lumbar spine and sacrum, there were also focal abnormal areas of radiotracer accumulation within the sternum, pelvis, proximal femurs and distal femoral shafts. These were suspicious for diffuse marrow replacing process consistent with her history of multiple myeloma. Her main complaint remained the left hip pain which causes her difficulty in ambulation. After review of scans and discussion with Dr. Marinelli, patient was given a single dose of 800 cGy to both the right and left hips on 02/07/2020. She continues to receive her systemic therapy including Velcade and immunotherapy and she has excellent palliation with complete relief of her pain (she takes 1 or 2 Percocets a day). She returned today for her scheduled radiation oncology follow-up follow-up without any complaints of fever, chills or night sweats, weight loss, headaches, nausea, peripheral lymphadenopathy, cough, hemoptysis, abdominal discomfort, urinary or bowel problems, vaginal bleeding or discharge, leg swelling, motor or sensory changes. I've closely reviewed the patient's oncologic, medical, surgical, social, and family history. Changes noted above. I also reviewed the patient's medicationsvia reconciliation, as per the nursing record. - Review of Systems ROS: As per HPI. Objective Height 5 ft 2.99 in Weight 102.92 kg Temp 97.7 F 10/29/20 14:15 Pulse 81 10/29/20 14:15 Resp 20 10/29/20 14:15 BP 136/80 10/29/20 14:15 Pulse Ox 97 10/29/20 14:15 Pain: 0/10 Emotional Needs Assessment: Emotional Needs Identified? Yes Distress Screening Total 0 Support System Child/Children,Family Karnofsky Performance Scale: 90%: Can perform normal activity, minor signs of disease Physical Exam: Examination today, she is alert, oriented, pleasant female who is in no acute distress. HEENT examination revealed no cranial neuropathy. No palpable neck lymphadenopathy. Her breasts were not examined today. Her lungs are clear to auscultation. Cardiac examination is unremarkable. She has no spinal or paraspinal tenderness. Her abdomen is soft and nontender and there isno palpable massor organomegaly. Pelvic and rectal examination not done. Local examination of both hips did not reveal any significant skin changes from her recent radiation. Mobility at both hips is full and nontender. Straight leg raising test is negative bilaterally. She has no leg edema. Her neurological examination including motor, sensory and cerebellar functions are within normal limits. Results CBC & Chem 7: 10/29/20 12:49 10/29/20 12:49 Byxe-7-Qxlpprdfyyrog 1.9 mg/L (0.6-2.4) 12/07/18 16:14 Ivrwr-0-Dbanhocag 0.3 g/dL (0.0-0.4) 09/21/20 10:42 Ykhyz-1-Krwixbpcn 0.8 g/dL (0.4-1.0) 09/21/20 10:42 Beta Globulins 0.8 g/dL (0.7-1.3) 09/21/20 10:42 Impression: Multiple myeloma Assessment & Plan (1) Smoldering multiple myeloma (SMM) Plan: Patient's pain control remains excellent with 1-2 Percocets a day and she had excellent palliation of her hip pains. She is ambulatory without any help and she will continue her systemic treatments under Dr. Marinelli's care. At this point, I plan to discharge her from my clinic and see her in the future only on an as needed basis. Total Time Spent with Patient: Less than 30 minutes More than 50% of time allotted to patient education, answering questions, and coordinating care. N.B: Voice-recognition software was used in the creation of this note. Efforts were made to detect and correct typographical and/or grammatical errors;please excuse them should you find any. Dictated By: Silvestre Ahn MD DD/ 1426 Signed By: <Electronically signed by Silvestre Ahn MD> 10/29/20 1430 [facility] Work Phone: [phone] 768-609911-24-2020 Progress note Author Fabiola Marinelli [facility] September 25, 2020 6:48amNote Date/TimeNov2019 11:59[facility] [place] [address] Hem/Onc Follow Up Note - OP Signed Patient: Mojgan Pérez MR#: [id number] : 1955 Acct:[id number] Age/Sex: 65 / F Type: REG RCR Copies to: MD Yinka Downey MD~ Subjective Date/Time of Service: Date of Service: 09/24/2020 Time of Service: 11:59 Chief Complaint: Patient is here for routine follow up history of multiple myeloma with lab work for review. Cycle #9 of treatment due 10/02. Patient voicesno concerns. HPI: 09/24/2020: Mojgan presents (accompanied by her daughter) for cycle 8, week 2 followup [id number] mg/kg IV weekly, Dexamethasone 20mg weekly, and Velcade 0.7 mg/m? now sq once weekly for every 3-week cycle (21 days). She notes neuropathy symptoms are stable. Tolerating therapy well without fatigue. No bleeding and thrombocytopenia stable in 60-70,0000 range. On 10/02 she will be due for maintenance therapy with Daratumumab alone once per month. I will f/u with her in 2 months with myeloma labs, sooner as needed. Velcade and Dexamethasone will be stopped after 8 cycles. 08/13/2020: Mojgan is here for cycle 6, week 2 (day 14) daratumumab 16 mg/kg weekly, Velcade 0.7 mg/m? now sq once weekly for every 3-week cycle (21 days), and dexamethasone 20 mg weekly. No new symptoms--improving thrombocytopenia to 79,000 and improved leukopenia. 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 Still has improvement of M-spike, IgA normal and decreased lambda light chain and K/L ratio. We discussed that week 25 in Oct she will change to monthly daratumumab with weekly Velcade (1mg/m2) and Dexamethasone. Continue to follow every 6-8 weeks until maintenance schedule. 06/18/2020: Mojgan is here for cycle 3 week 3 (day 21) daratumumab 16 mg/kg weekly, Velcade 0.7 mg/m? now sq once weekly for every 5-week cycle (35 days), and dexamethasone 20 mg weekly. Tolerating well with stable leukopenia and thrombocytopenia. Mild increased symptoms of hand and foot neuropathy, but no limitation in activity. Now following with diabetes management clinic with variable glucosecontrol. We reviewed lower IgA (now M-spike IgG kappa after Daratumumab--previously IgA lambda). Lambda light chain has decreased from 516 to 41.3 to now 18.5 with normalization of K/L ratio. Continue followup myeloma labs in 6 weeks, visit in 8 weeks. 05/21/2020: Mojgan is here for cycle 2 (week 7 overall) daratumumab 16 mg/kg weekly, Velcade 0.7 mg/m? now sq once weekly for every 5-week cycle (35 days), and dexamethasone 20 mg weekly. Tolerating well with stable leukopenia and thrombocytopenia. No significant neuropathy. Noted to have improvement in lambda light chains. No further daratumumab infusion reactions. No infections,stable constipation, pain control improved. No other complaints. Continue monthly f/u with myeloma labs. --Diabetes management--added insulin on dexamethasone days. Hyperglycemia improving. 01/18/2020 (phone followup)--The patient's son was available by phone and her daughter was contactedin a separate phone call as patient presented unaccompanied due to COVID-19 precautions in our clinic during the current epidemic. Bone marrow biopsy results were reviewed as follows from procedure pe rformed 01/26/2020: --Bone marrow biopsy was suboptimal for evaluation. --Increased lambda light chain restricted monoclonal plasma cells (1.9% by flow cytometry, approximately 6% and aspirate count, but 50% by immunohistochemical stains CD138). Sideroblastic iron present, negative for ring sideroblasts. Peripheral blood smear with mild red blood cell anisocytosis and polychromasia, leukopenia with absolute neutropenia (1000) and thrombocytopenia (54,000) consistent with prior baseline. Note: I discussed the results with Dr. Crook 01/26/2020. Preliminary findings were also discussed with Dr. Cummings 01/27/2020. Morphologic findings, immunohistochemical stains, flow cytometry, and ancillary studies may under represent the extent and severity of disease. The results of FISH myeloma panelwith prognostic markers and cytogenetic analysis are pending. --Given the patient's hip pain and presence of lytic lesions, she meets clinicalcriteria for activemyeloma. Given her hip pain and lytic lesions in weightbearing areas she was offered radiation therapy. She had a limited courseof hypofractionated palliative therapy to bilateral proximal femurs [address] A[address]. We discussed that given the COVID-19 epidemic and absence of othersignificant changes other than bony lesions (normal renal function, normal calcium, stable cytopenias), I would defer active therapy for myeloma for 4 to 6 weeks. Since she has significant history ofliver disease I will discuss her case with Dr. Piter Benavidez at [facility] malignant hematology for optimal regimen. The patient is not a transplant candidate given her nonalcoholic steatohepatitis and chronic thrombocytopenia but may be a candidate for either doublet therapy (Revlimid/dexamethasone) or triplet therapy with either Velcade/Revlimid/dexamethasone or daratumumab/Revlimid/dexamethasone. --02/03/2020: Mojgan presented unaccompanied for follow-up of bone marrow aspiration and biopsy performed by Dr. 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 The patient had been noting increased left hip pain over the past several months andplain films of the pelvis and bilateral femurs did show subtle lucencies in the bilateral proximal femurs corresponding to PET/CT findings but no other additional sclerotic lesions identified. No pathologic fractures were seen. --03/05/2020: Mojgan notes improvement of bilateral hip pain since radiation. No other changes in medical history in the past month--no infections, normal renal function, no hypercalcemia. Stable platelet counts without bleeding. Shewas given written literature regarding Dexamethasone, Velcade (thatwould be dose reduced to 0.7mg/m2 twice weekly), weekly Daratumumab and Revlimid, but I will defer decision of which regimen to use until discussion in malignant hematology tumor board. Also referring for infusion port placement prior to initiating therapy. Sign informed consent prior to initiating therapy. --Discussed with Dr. Benavidez who favors Daratumumab combination--will request prior liver biopsy and records from [facility] liver clinic. The patient and her son (by telephone) expressed understanding and will follow- up as directed in 2 weeks for consent and likely start of therapy. --04/02/2020: Mojgan presents after infusion port placement at [facility] by interventional radiology due to platelet count 40,000--she had increased bruising at site post procedure, but this has completely resolved. Her hip painis well controlled since completion of palliative radiation and no newareas of pain. She has previously reviewed information regarding Daratumumab (first dosesplit 8mg/kg IV D1,D2, then if well tolerated 16mg/kg IV weekly), Velcade at about 50% dose (for liver dysfunction) 0.7mg/m2 D1,D4,D8, D11, and Gjnnxgzdmdktz32sj IV weekly--repeat for every 3 week cycles 1st 3 cycles. She will take chemo class and likely start therapy within 2 weeks with toxicity visit in 3 weeks. Today we reviewed chemotherapy counseling for Daratumumab, Velcade, and Dexamethasone. Common toxicities were reviewed to include infusion reaction including rash/dyspnea/wheezing, myelosuppression, fatigue, nausea, vomiting, constipation, diarrhea, mouth sores, and alopecia. Other toxicities may in cludepneumonitis, neurologic, thromboembolism, hyperglycemia, hepatic and renal toxicities. The patient signed informed consent and will follow-up as directed. --04/19/2020: Mojgan is here for cycle 1 week 2 daratumumab 16 mg/kg weekly, Velcade 0.7 mg/m? twice weekly for first 2 weeks of every 3-week cycle, and dexamethasone 20 mg weekly. She did have an infusion reaction with first daratumumab with dyspnea and flushing but this improved after first dose and shehas not had recurrent infusion reactions. We have continued Velcade despite platelet counts in the 40,000 range without bleeding as we know that her baseline platelet counts remain in this range and she has not had any significant change from her baseline. Dexamethasone has caused hyperglycemia with blood sugars up to 400 and we are referring to diabetes management clinic. Otherwise she denies any significant nausea, emesis, fever, chills, night sweats, constipation, diarrhea, rash, mouthsores, or alopecia. She has not hadany change of baseline neuropathy. Liver function tests remain stable. She notes that her hip pain is well controlled since prior palliative radiation and she saw radiation oncology earlier this week with no new recommendations. I will send her myeloma labs including serum and urine protein electrophoresis, quantitative immunoglobulins, and serum kappa/lambda light chains in 2 weeks andfollow-up with her in 3 weeks. She may be seen sooner if new issues arise. This is a 65-year-old lady on chronic disability has a history of arthritis, diabetes mellitus, hypertension, COPD, GERD, and fibromyalgia [facility]. She states that she was followed with Dr. Kumari prior to his senior care and was told that she had an elevated protein level as well as thrombocytopenia but never had clinical bleeding. She is 4 para4 without complicationsand was never told that she was thrombocytopenic while . She is had multiple prior surgicalprocedures without any clinical bleeding. She had been recommended for a pain procedure with Dr. Wilson but he declined to do the procedure because her platelet count was less than 100,000. For this reason she received 2 platelet transfusions, with little improvement of her platelet count and her second transfusion resulted in throat tightening due to allergy to platelets . She has never beentreated with steroids and has never been told that she has immune thrombocytopenia. She has mild leukopenia with relative neutropenia, absolute neutrophil count of 400-800 and mild lymphocytosis. Hemoglobin is normal. She has not had any bright red blood per rectum or epistaxis. She has no history ofbleeding within the family however does have a mother and sister diagnosed with colon cancer, a brother diagnosed with lung cancer, and another sister diagnosedwith breast cancer. She had prior pain in the right hand mainly at the first MCP joint with some associated swelling and right foot pain and was evaluated by podiatry. She was told that her blood tests were negative forgout. She had screening with MALLORY, CCP, and rheumatoid factor all of which were negative. She says that she previously saw Dr. Petersen for cirrhosis but did not know of any specific therapy. We reviewed these findings from her liver ultrasound ordered by Dr. Benavidez Summer 2016. Initial consultation with me March 16, 2017. --The patient has been followed by me for some time for diagnosis of smoldering myeloma with a prior bone marrow biopsy May 2017 showing 15% plasma cells but the patient remained asymptomatic without bone pain or other CRAB criteria for therapy. She is also noted to have an ascending aortic aneurysm and has chronicliver disease with cirrhosis secondary to nonalcoholic steatohepatitis. She haschronic thrombocytopenia without bleeding ranging from 50-100,000 this is felt to be due to sequestration from her nonalcoholic steatohepatitis. She was previously on a liver transplant list but was recently notified that she is no longer a candidate for liver transplant. She has had chronic pain from f ibromyalgia but noted increasing bilateral hip and upper thigh pain over the last 6 months. She also is followed for EGD/colonoscopy with last documented procedure 09/21/2018: 1. Normal EGD, 2. Mild sigmoid diverticulosis, 3. Internal hemorrhoids, grade 2, 4. Anal fissure with active bleeding cauterized by bipolar cautery Bone osseous survey in June 2019 showed osteopenia and degenerative changes but no lytic or blastic lesion. Patient had an F-18 PET scan 01/02/2020 which showed multiple areas of involvementof bones with increased SUV activity. She was contacted with these results by phone and I recommended bone marrow aspirate and biopsy for assessment and analysis. Her prior labs were reviewed. Her SPEP does not show anymonoclonal gammopathy. On VAHID there appears to be a trace of monoclonal gammopathy. Free light chain ratio is less than 100. There is no evidence of renal sufficiency. Patient is not anemic. She doeshave some abnormal areas on bone scan. - Summary of Therapies Summary of Therapies: 1. 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 2. She underwent a single dose of palliative radiation therapy to bilateral hips, receiving 800 cGyto right and left hip in 1 fraction in separate vaz (with a single isocenter). The treatments were given with AP/PA vaz [id number] MV photons and MLC blocks. 3. Deferred active therapy for myeloma 2 months given COVID-19 epidemic with increased risk of myelosuppression and viral transmission of contacts. --Follow-up 03/05/2020 I discussed her case with Dr. Piter Benavidez at malignant hematology. --Given her significant hepatic dysfunction, I presented her case at malignant hematology tumor board to discuss optimal therapy. 4. Cycle 1 day 1 04/10/2020: Dose reduced Velcade 0.7 mg/m? twice weekly (day 1,day 4, day 8, day 11)every 3 weeks with dexamethasone 20 mg weekly and daratumumab 16 mg/kg weekly of each 21-day cycle.After first week, Velcade decreased to 0.7mg sq weekly due to thrombocytopenia. --We will need to watch liver function, platelet count, and neuropathy closely on Velcade. 5. Cycle 9 day 1 scheduled 10/02/2020: Daratumumab 16mg/kg once monthly maintenance therapy until progression. ROS Details: All systems reviewed & no additional complaints except as documented Subjective/ROS - Narrative: Constitutional: No Chills, No Diaphoresis, Stable Fatigue, No Fever, No Malaise, No Night Sweats, No Weakness, No Weight Gain, No Weight Loss Gastrointestinal: No Abdominal Pain, No Black Stool, No Bloating, No Bloody Stool, No Constipation,No Diarrhea, No Dysphagia, No Hematemesis, No Nausea, NoPostprandial Pain, No Rectal Bleeding, No Rectal Pain, No Vomiting, Other (chronic gastroesophageal reflux stable) --No jaundice or ascites but patient has longstanding nonalcoholic steatohepatitis with cirrhosis, previously followed by [facility] gastroenterology. Cardiovascular: No Chest Pain, No Edema, No Palpitations, No Syncope Genitourinary: No Discharge, No Dysuria, No Flank Pain, Frequency (chronic andunchanged), No Hematuria, No Incontinence, No Nocturia, No Urgency, No Urinary Retention Musculoskeletal: S/p right chest infusion port placement. 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 HEENT: No Blurred Vision, No Discharge, No Ear Pain, No Epistaxis, No Rhinorrhea, No Sore Throat--patient was seen in emergency department November 2019 with persistent epistaxis. She was treated withnasal clip and packing andwas advised to continue Afrin. No recurrent bleeding. Respiratory: No Cough, No Hemoptysis, + Shortness of Breath (chronic and unchanged due to COPD), NoSputum, No Wheezing--shortness of breath with daratumumab reaction dose 1 04/10/2020 (given a split dose over 2 days). No recurrent reaction since first dose. Neurological: No Dizziness, Stable Numbness/Tingling (reports long-standing bilateral foot numbness--unchanged since starting low-dose Velcade 04/10/2020), NoPre-existing Deficit (no history of stroke or seizure), intermittent headache Hematologic/Lymphatic: No significant bleeding thrombocytopenia from sequestration, Bruises Easily,No Enlarged Lymph Nodes, Other (reports allergyto prior platelet transfusion) Endocrine: Excessive Sweating (hot flashes, postmenopausal) Flushing, No Intolerance to Cold, Intolerance to Heat Psychiatric: No Depressed Mood, No Insomnia Integumentary: No Jaundice, No Lesions, No Rash Allergic/Immunology: No Pruritus PMFSH - History Attestation statement: The following information was validated with the patient. Source: Old Records Reviewed - Medical History Medical History: Medical History (Last Reviewed 09/24/20 @ 21:28 by Fabiola Marinelli MD) Aortic aneurysm COPD (chronic obstructive pulmonary disease) Diabetes Fibromyalgia GERD (gastroesophageal reflux disease) Iron deficiency Neutropenia Smoldering multiple myeloma (SMM) Smoldering myeloma Temporary low platelet count - Surgical History Surgical History: Surgical History (Last Reviewed 09/24/20 @ 21:28 by Fabiola Marinelli MD) H/O: hysterectomy History of appendectomy History of cholecystectomy - Social History Smoking Status: Former smoker Tobacco Type: cigarettes Substance Use Type: None Social History Comments: Lives with son a juli Home Medications & Allergies Allergies latex Allergy (Verified 09/11/20 11:21) Unknown Reaction moxifloxacin [From Avelox] Allergy (Verified 09/11/20 11:21) Hives Quinolones Allergy (Verified 09/11/20 11:21) Unknown Reaction tetracycline Allergy (Verified 09/11/20 11:21) Unknown Reaction Home Medications carvedilol 12.5 mg PO BID 11/20/17 [History Confirmed 09/24/20] duloxetine 60 mg PO DAILY 11/20/17 [History Confirmed 09/24/20] insulin detemir U-100 22 units SUB-Q QHS 11/20/17 [History Confirmed 09/24/20] oxycodone 10 mg PO TID PRN 11/20/17 [History Confirmed 09/24/20] albuterol sulfate 2 puff INHALATION Q6H PRN 11/24/17 [History Confirmed 09/24/20] fluticasone propion-salmeterol [Advair Diskus] 1 inh INHALATION Q12H PRN 11/24/17 [History Confirmed 09/24/20] omeprazole magnesium [Prilosec OTC] 40 mg PO DAILY 11/24/17 [History Confirmed 09/24/20] cyanocobalamin (vitamin B-12) 1,000 mcg PO DAILY 09/15/18 [History Confirmed 09/24/20] cholecalciferol (vitamin D3) [Vitamin D3] 1,000 unit PO DAILY 04/13/19 [History Confirmed 09/24/20] metformin 500 mg PO BID 03/05/20 [History Confirmed 09/24/20] dexamethasone 20 mg PO ONCE 90 Days #60 tab 04/02/20 [Rx Confirmed 09/24/20] ondansetron HCl [Zofran] 8 mg PO TID PRN #30 tab 04/02/20 [Rx Confirmed 09/24/20] diazepam [Valium] 5 mg PO DIRECTED 1 Days #2 tab 05/21/20 [Rx Confirmed 09/24/20] insulin NPH isoph U-100 human [Novolin N NPH U-100 Insulin] 20 unit SUBCUT DIRECTED 05/21/20 [History Confirmed 09/24/20] nystatin 100,000 unit BUCCAL DAILY 90 Days #500 ml 06/18/20 [Rx Confirmed 09/24/20] acyclovir 400 mg PO BID 90 Days #180 tab 07/23/20 [Rx Confirmed 09/24/20] potassium chloride 10 meq PO DAILY #30 cap 08/29/20 [Rx Confirmed 09/24/20] semaglutide [Ozempic] 0.5 mg SUBCUT QWEEK 09/24/20 [History Confirmed 09/24/20] Objective - Height/Weight Height/Weight: Height 5 ft 2.99 in Weight 102.058 kg BSA for Today's Weight 2.14 - Vital Signs Vital Signs: 09/24/20 11:39 Temperature 97.5 F L Pulse Rate [Left Brachial] 85 Respiratory Rate 20 Blood Pressure [Left Arm] 144/87 H 02 Sat by Pulse Oximetry 97 - Pain Bilateral Leg Pain Intensity: 5 Bilateral Shoulder Pain Intensity: 6 Generalized Pain Intensity: 3 Bilateral Hip Pain Intensity: 5 Left Hip Pain Intensity: 4 Lower Back Pain Intensity: 7 Left Neck Pain Intensity: 4 - Emotional Needs Assessment Emotional Needs Assessment: Emotional Needs Identified? No Distress Screening Total 0 Support System Child/Children - ECOG Performance Status ECOG Score: 1 Physical Exam Narrative: Patient is alert and oriented x3. HEAD / FACE: Normocephalic. No tenderness to palpation over scalp, no sinus tenderness to palpation. EYES: Pupils are equal and reactive to light. Conjunctivae and lids are benign in appearance. Ocular movement intact. EARS: Hearing grossly intact. NOSE / MOUTH / THROAT: Nose, mouth, tongue and oropharynx exam deferred due to coronavirus-19 pandemic (mask in place). NECK / THYROID: Neck is supple. Thyroid is symmetrical, without thyromegaly, masses or palpable nodules. LYMPHATIC: No palpable cervical, supraclavicular, axillary, or inguinal adenopathy. RESPIRATORY: Normal inspection. Lungs clear to auscultation and percussion. No wheezing, rales, rhonchi or rubs. Normal effort. Right chest wall infusion portwithout erythema. CARDIOVASCULAR: Regular rate and rhythm. No murmurs, gallops, or rubs. VASCULAR: Carotid, radial, femoral and pedal pulses present bilaterally. No bruits. ABDOMEN: Bowel sounds normoactive. Soft, nontender and non-distended. No hepatosplenomegaly. No masses. GENITOURINARY: No CVA tenderness. No suprapubic fullness or tenderness. No groinadenopathy. No evidence of hernias. INTEGUMENTARY: The skin is unremarkable. No rashes. No suspicious lesions. No bruising or petechiaenoted. BACK / SPINE: The back is nontender to percussion over vertebral bodies or SI joints. No step off deformity. MUSCULOSKELETAL: Normal musculature, no joint deformities or abnormalities, normal range of motion for all four extremities. EXTREMITIES: No edema, cyanosis or clubbing. No Destini sign. NEUROLOGICAL: Alert and oriented. Cranial nerves intact. No gross motor or sensory deficits, patient ambulates unassisted. PSYCHIATRIC: No anxiety or evidence of depression. Results - Labs Labs: Diagram of Most Recent CBC and CMP 09/21/20 10:42 09/21/20 10:42 Labs - Last 7 Days 09/21/20 10:42: PHA Creatinine Clear 115.89, Sodium 137, Potassium 4.1, [id number], Carbon Rqc[place]21.9, BUN 16, Creatinine 0.56, Est GFR ( Amer) > 60, Est GFR (Non-Af Amer) > 60, Glucose 112 H, Calcium 9.0, Total Bilirubin 0.8, AST28, ALT 24, Alkaline Phosphatase 76, Total Protein 5.6 L, Albumin 3.2, Globulin 2.4, Albumin/Globulin Ratio 1.3 09/21/20 10:42: WBC 3.3 L, Corrected WBC 3.3 L, RBC 4.01, Hgb 11.0 L, Hct 33.6 L, MCV 83.7, MCH 27.5, MCHC 32.8, RDW 18.7 H, Plt Count 62 L, MPV 8.8, Neut % (Auto) 35.0, Lymph % (Auto) 52.3, Hodgeman % (Auto) 11.4, Eos % (Auto) 1.2, Baso % (Auto) 0.1, Neut # (Auto) 1.2 L, Lymph # (Auto) 1.7, Hodgeman # (Auto) 0.4, Eos # (Auto) 0.0, Baso # (Auto) 0.0, Nucleated RBC % (auto) 0.1 09/21/20 10:42: IgG 556 L 09/21/20 10:42: IgA 52 L, IgM 24 L, Free [place] LC, Quant 9.1, Free Lambda LC, Quant 18.3, Free [place]/Lambda Ratio 0.50 - Impressions No new imaging for review. Consider f/u F-18 PET/CT for restaging in 12/2020 Assessment and Plan (1) Multiple myeloma Qualifiers: Multiple myeloma remission status: not in remission Qualified Code(s): C90.00 - Multiple myeloma not having achieved remission Mojgan 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 She has high risk cytogenetics and I [facility] Her persistent thrombocytopenia made her ineligible for any clinical trials, and preventedher from receiving local pain procedures given her chronic low back pain. --05/2017 PET/CT images and reports performed for staging to exclude bone involvement with myeloma. 2 indeterminate areas of uptake thought to be degenerative arthritis vs early bone findings of myeloma (right parietooccipitalarea and upper sternum). She has remained asymptomatic [...] showed no lytic lesions and she has stableshoulder, hand, and right SI joint pain (although likely due to fibromyalgia. --Prior osseous survey 07/01/2019 showed osteopenia but no compression fractures or lytic lesions were identified. She had no significant change in myeloma labs(mild increase of urine M-spike, kappa/lambda ratio, and normal serum M- spike and quant immunoglobulins). Urine protein still undetectable, therefore will continue surveillance every 6 months with the same labs--no hypercalcemia, renaldysfunction (or proteinuria), anemia, or new bone symptoms. [...] proteins with urine M spike 43.1 but totalprotein 34.4, with no reported urine creatinine. --We deferred immunosuppressive chemotherapy for about 1 month due to control ofsymptoms after palliative radiation and concern of potential peak of COVID-19 inlate January early March. --She presented for follow-up 03/05/2020 and we discussed potential therapy options (with son available by phone). --I discussed her case with Dr. Piter Benavidez of malignant hematology, possibly presenting the patient in hematology tumor board at [facility]. --Infusion port placed 03/22/2020 at [facility] due to low platelets. No complications. --03/12/2020: Myeloma labs with no serum M-spike, + urine M spike 22.2mg/24h (14%). Immunofixation IgA lambda specificity. IgA normal 227, Serum kappa 20.6, serum lambda 516.7, Free kappa/lambda ratio0.04. Normal renal function and calcium. Lower ANC 600 and platelets 40,000 --04/10/2020: Started cycle 1 day 1 of weekly dexamethasone 20 mg IV (careful to watch blood sugars with diabetes and known hepatic dysfunction), decreased dose of bortezomib 0.7 mg/m? twice weekly for2 weeks on 1 week off (due to known liver disease and thrombocytopenia), and daratumumab 8mg/kg D1,D2 IV first week,then 16 mg/kg IV weekly and we may consider Revlimid as a 4th medication if needed (deferred for worsening neutropenia and thrombocytopenia--I am reluctant to add this therapy initially). --She has baseline cirrhosis with chronic thrombocytopenia and I am attempting to treat her with the least myelosuppressive regimen after 2 month deferral of therapy due to COVID-19 pandemic noted above. Patient does not have any currentsigns or symptoms of infection. On Acyclovir 400mg bid for VZV prophylaxis. --We requested prior liver biopsy from [facility] for review of the extentof her known liver dysfunction. It is doubtful she will be a high-dose chemotherapy/peripheral blood stem cell transplant candidate given her history of cirrhosis and chronic cytopenias. --04/19/2020 toxicity follow-up: Other than daratumumab reaction with cycle 1 day1 and hyperglycemiasecondary to dexamethasone, she has not had any other new toxicities of therapy thrombocytopenia remains in the 40,000 range without bleeding and we will continue treating with 50% dose Velcade as long as she doesnot have worsening hepatic function, thrombocytopenia, or neuropathy. I am sending herto diabetes management clinic for her hyperglycemia to adjust her insulin regimen (patient has previously discussed this with her primary physician who agrees). --05/21/2020: Tolerating weekly daratumumab, bortezomib, dexamethasone well. Diabetes management improving. Thrombocytopenia stable in 50,000 range without bleeding. --05/03/2020: Myeloma labs with no serum M-spike (not performed), + urine M spike now resolved. Immunofixation IgA lambda specificity. IgA normal 112, Serum kappa 7.8, serum lambda 41.3, Free kappa/lambda ratio 0.19 (improved). Normal renal function and calcium. Mildly improved ANC 900 and platelets 54,000 --Restaging myeloma labs (CBC, CMP, SPEP and UPEP with immunofixation, serum kappa/lambda light chain analysis, and quantitative immunoglobulins) ordered in 1 month and I will follow-up with her in 5-6 weeks for toxicity review. --06/18/2020: No new symptoms on weekly daratumumab, bortezomib, dexamethasone after dose reductionsof bortezomib for cytopenias and neuropathy. Myeloma labsnow show lower IgA 72. Now M-spike IgG kappa after Daratumumab--previously IgA lambda. Lambda light chain has decreased from 516 to 41.3 to now 18.5 with normalization of K/L ratio. Continue followup myeloma labs in 6 weeks, visit in8 weeks. Leukopenia and thrombocytopenia relatively stable on current therapy. --08/13/2020: Improving thrombocytopenia (79,000) and decreasing M-spike, IgA and lambda light chain. Next myeloma f/u with labs in 6 weeks, sooner prn. --09/24/2020: Now completing cycle 8 Daratumumab/Velcade/Dexamethasone with decreased M-spike, low IgA and normalization of lambda light chain. Platelets stable at 60-70,000 without bleeding. With cycle 9 onward 10/02/2020, she will maintain once monthly Daratumumab only (stop Velcade and Dexamethasone). F/u every 2 months. This is a moderate complexity visit over 30 minutes for review of toxicities anddiabetes management. I previously spoke with Dr. Benavidez regarding treatment options and coordinated [facility] hematology tumor board presentation. 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 I previously reviewed her outpatient records from [facility], including review of notes, laboratories, and prior bone marrow biopsy 13 years ago. 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 Most recent platelet count is relatively stable at 54,000 but no clinical bleeding. She waspreviously referred to weight reduction clinic and may have slow improvement of steatohepatitis with lifestyle modification. Unless she has active bleeding or planned surgery, we will continue observation during treatment of active myelomato commence next month as noted above. --Agree with recommendation for EGD surveillance for varices (last was 09/2018--negative). This will be deferred during current COVID-19 epidemic. --Prior vitamin B12 and folic acid are normal, for known history of neuropathy. As noted above, I reviewed the negative M spike on serum protein electrophoresiswith immunofixation, but positive for Bence Murray protein on urine protein electrophoresis. Her Quantitative immunoglobulins IgG, IgA, and I gM were all within normal limits, however her serum kappa lambda light chain analysis showeda predominance of lambda light chains. --Previous labs for lupus anticoagulant with DRVVT, hexagonal phase phospholipid, anti-cardiolipin IgG and IgA, and beta 2 glycoprotein IgG and IgA were within normal limits. --Evaluated in ED November 2019 for epistaxis which resolved. Platelet count wasstable at 12/28/2019 follow-up. She continues surveillance with liver clinic at [facility] and I will continue to follow her every 6 months, sooner if newbleeding issues arise. --04/02/2020: We reviewed informed consent for Daratumumab/Velcade/Dexamethasone for active myeloma therapy. I requested prior liver biopsy results and notes from liver clinic at [facility]. Platelet count in 40,000 range but patient has had no active bleeding following infusion port placement 03/22/2020. --08/13/2020: Cycle 6 week 2 toxicity check with improved thrombocytopenia 79,000 range with no bleeding. We will continue current dosing with Velcade 0.7mg/m2 sq (now once weekly), dexamethasone 20 mg weekly, and full dose daratumumab with close follow-up of liver function and platelet counts. --09/24/2020: Platelets stable 60-70,000 with no new toxicities, start Daratumumab maintenance 10/02/2020. 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 She wasreferred to Weight Management Clinic to attempt weight reduction through diet and exercise that may prevent further fatty infiltration that may further impairher liver function. [facility] hepatology discussed liver transplant but sheis likely no longer a candidate for this given active myeloma. We chose least hepatotoxic regimen for treatment of her active myeloma with 50% dose reduction of Velcade. Liver function remained stable since start of therapy 04/10/2020. --Requested prior liver biopsy and [facility] liver clinic records. (4) Neutropenia, unspecified Qualifiers: Neutropenia type: unspecified Qualified Code(s): D70.9 - Neutropenia, unspecified Previous worsening neutropenia without infection (current WBC 2000, ANC 600)--thought to be relatedto new diagnosis of active myeloma and no nutritional deficiency. Treating with less myelosuppressive regimen (Velcade rather than Revlimid) for myeloma. Of note no dysplastic changes were noted on bone marrow biopsy. Current white blood cell count was stable with absolute neutrophil count had improved to [id number]. We will continue to follow closely on current therapy and continue acyclovir prophylaxis. (5) Diabetes mellitus Qualifiers: Diabetes mellitus type: type 2 Diabetes mellitus complication status: without complication Suboptimal diabetes control with recent Hemoglobin A1c 8.4--notes recent adjustment in her diabetesregimen by her primary physician. --04/19/2020 follow-up: She notes that since starting weekly dexamethasone therapy at 20mg dose blood sugars were as high as 400. She agreed to consultation with diabetes management clinic and likely requires supplemental insulin doses on steroid days. --09/24/2020: Now improved diabetes control since following in diabetes management clinic. Should continue to improve off Dexamethasone weekly after 10/02/2020. Continue followup in diabetes management clinic. (6) Obesity Qualifiers: Body mass index: BMI 40.0-44.9 KAPADIA--continue f/u in weight reduction clinic. Defer to PCM. (7) Cancer-related pain Improved symptoms after palliative radiation to bilateral hips--one dose 02/07/2020. Will continue tofollow on myeloma chemotherapy. - Chemo Plan Chemo Plan (Dose, Rate, Freq): Palliative radiation to 02/07/2020, deferred active therapy for myeloma for 8 weeks due to current COVID-19 epidemic. Discussed at Malignant Hematology Tumor Board early March to determine optimal regimen given her comorbidities. --04/10/2020: cycle 1, day 1 weekly dexamethasone 20 mg IV (careful to watch bloodsugars with diabetes and known hepatic dysfunction), decreased dose of bortezomib 0.7 mg/m? twice weekly for 2 weeks on1 week off (decreased to once weekly after first cycle due to known liver disease and thrombocytopenia), and daratumumab 8mg/kg D1,D2 IV first week, then 16 mg/kg IV weekly --10/02/2020: Start Daratumumab monthly maintenance 16mg/kg IV (stop Velcade andDexamethasone) Goal of Treatment: Palliative - Time with Patient Total Time Spent with Patient: 30 min Coordination of Care & Counseling Time: Greater than 50% of time spent with patient was for coordination of care (as documented) and [id number] counseling of patient and/or family. Dictated By: Fabiola Marinelli MD DD/ [id number] Signed By: <Electronically signed by MD Fabiola Marinelli> 09/25/20 0648 [facility] Work Phone: [phone] 406-847710-12-2020 Progress note Author Fabiola Marinelli [facility] August 13, 2020 8:57pmNote Date/TimeOct2019 10:11[facility] [address] [address] Hem/Onc Follow Up Note - OP Signed Patient: Mojgan Pérez MR#: [id number] : 1955 Acct:[id number] Age/Sex: 64 / F Type: REG RCR Copies to: MD Yinka Downey MD~ Subjective Date/Time of Service: Date of Service: 08/13/2020 Time of Service: 10:10 Chief Complaint: Patient is here for routine two month follow up while on treamtment. Myeloma lab 07/30. Cycle #7 due 08/21. No concerns voiced. HPI: 08/13/2020: Mojgan is here for cycle 6, week 2 (day 14) daratumumab 16 mg/kg weekly, Velcade 0.7 mg/m? now sq once weekly for every 5-week cycle (35 days), and dexamethasone 20 mg weekly. No new symptoms--improving thrombocytopenia to 79,000 and improved leukopenia. 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 Still has improvement of M-spike, IgA normal and decreased lambda light chain and K/L ratio. We discussed that week 25 in Oct she will change to monthly daratumumab with weekly Velcade (1mg/m2) and Dexamethasone. Continue to follow monthly every 6 weeks until maintenance schedule. 06/18/2020: Mojgan is here for cycle 3 week 3 (day 21) daratumumab 16 mg/kg weekly, Velcade 0.7 mg/m? now sq once weekly for every 5-week cycle (35 days), and dexamethasone 20 mg weekly. Tolerating well with stable leukopenia and thrombocytopenia. Mild increased symptoms of hand and foot neuropathy, but no limitation in activity. Now following with diabetes management clinic with variable glucosecontrol. We reviewed lower IgA (now M-spike IgG kappa after Daratumumab--previously IgA lambda). Lambda light chain has decreased from 516 to 41.3 to now 18.5 with normalization of K/L ratio. Continue followup myeloma labs in 6 weeks, visit in 8 weeks. 05/21/2020: Mojgan is here for cycle 2 (week 7 overall) daratumumab 16 mg/kg weekly, Velcade 0.7 mg/m? now sq once weekly for every 5-week cycle (35 days), and dexamethasone 20 mg weekly. Tolerating well with stable leukopenia and thrombocytopenia. No significant neuropathy. Noted to have improvement in lambda light chains. No further daratumumab infusion reactions. No infections,stable constipation, pain control improved. No other complaints. Continue monthly f/u with myeloma labs. --Diabetes management--added insulin on dexamethasone days. Hyperglycemia improving. 01/18/2020 (phone followup)--The patient's son was available by phone and her daughter was contactedin a separate phone call as patient presented unaccompanied due to COVID-19 precautions in our clinic during the current epidemic. Bone marrow biopsy results were reviewed as follows from procedure pe rformed 01/26/2020: --Bone marrow biopsy was suboptimal for evaluation. --Increased lambda light chain restricted monoclonal plasma cells (1.9% by flow cytometry, approximately 6% and aspirate count, but 50% by immunohistochemical stains [id number]). Sideroblastic iron present, negative for ring sideroblasts. Peripheral blood smear with mild red blood cell anisocytosis and polychromasia, leukopenia with absolute neutropenia (1000) and thrombocytopenia (54,000) consistent with prior baseline. Note: I discussed the results with Dr. Crook 01/26/2020. Preliminary findings were also discussed with Dr. Cummings 01/27/2020. Morphologic findings, immunohistochemical stains, flow cytometry, and ancillary studies may under represent the extent and severity of disease. The results of FISH myeloma panelwith prognostic markers and cytogenetic analysis are pending. --Given the patient's hip pain and presence of lytic lesions, she meets clinicalcriteria for activemyeloma. Given her hip pain and lytic lesions in weightbearing areas she was offered radiation therapy. She had a limited courseof hypofractionated palliative therapy to bilateral proximal femurs [address] Ahn. We discussed that given the COVID-19 epidemic and absence of othersignificant changes other than bony lesions (normal renal function, normal calcium, stable cytopenias), I would defer active therapy for myeloma for 4 to 6 weeks. Since she has significant history ofliver disease I will discuss her case with Dr. Piter Benavidez at [facility] malignant hematology for optimal regimen. The patient is not a transplant candidate given her nonalcoholic steatohepatitis and chronic thrombocytopenia but may be a candidate for either doublet therapy (Revlimid/dexamethasone) or triplet therapy with either Velcade/Revlimid/dexamethasone or daratumumab/Revlimid/dexamethasone. --02/03/2020: Mojgan presented unaccompanied for follow-up of bone marrow aspiration and biopsy performed by Dr. 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 The patient had been noting increased left hip pain over the past several months andplain films of the pelvis and bilateral femurs did show subtle lucencies in the bilateral proximal femurs corresponding to PET/CT findings but no other additional sclerotic lesions identified. No pathologic fractures were seen. --03/05/2020: Mojgan notes improvement of bilateral hip pain since radiation. No other changes in medical history in the past month--no infections, normal renal function, no hypercalcemia. Stable platelet counts without bleeding. Shewas given written literature regarding Dexamethasone, Velcade (thatwould be dose reduced to 0.7mg/m2 twice weekly), weekly Daratumumab and Revlimid, but I will defer decision of which regimen to use until discussion in malignant hematology tumor board. Also referring for infusion port placement prior to initiating therapy. Sign informed consent prior to initiating therapy. --Discussed with Dr. Benavidez who favors Daratumumab combination--will request prior liver biopsy and records from [facility] liver clinic. The patient and her son (by telephone) expressed understanding and will follow- up as directed in 2 weeks for consent and likely start of therapy. --04/02/2020: Mojgan presents after infusion port placement at [facility] by interventional radiology due to platelet count 40,000--she had increased bruising at site post procedure, but this has completely resolved. Her hip pain is well controlled since completion of palliative radiation and no new areas of pain. She has previously reviewed information regarding Daratumumab (first dosesplit 8mg/kg IV D1,D2, then if well tolerated 16mg/kg IV weekly), Velcade at about 50% dose (for liver dysfunction) 0.7mg/m2 D1,D4,D8, D11, and [id number] IV weekly--repeat for every 3 week cycles 1st 3 cycles. She will take chemo class and likely start therapy within 2 weeks with toxicity visit in 3 weeks. Today we reviewed chemotherapy counseling for Daratumumab, Velcade, and Dexamethasone. Common toxicities were reviewed to include infusion reaction including rash/dyspnea/wheezing, myelosuppression, fatigue, nausea, vomiting, constipation, diarrhea, mouth sores, and alopecia. Other toxicities may in cludepneumonitis, neurologic, thromboembolism, hyperglycemia, hepatic and renal toxicities. The patient signed informed consent and will follow-up as directed. --04/19/2020: Mojgan is here for cycle 1 week 2 daratumumab 16 mg/kg weekly, Velcade 0.7 mg/m? twice weekly for first 2 weeks of every 3-week cycle, and dexamethasone 20 mg weekly. She did have an infusion reaction with first daratumumab with dyspnea and flushing but this improved after first dose and shehas not had recurrent infusion reactions. We have continued Velcade despite platelet counts in the 40,000 range without bleeding as we know that her baseline platelet counts remain in this range and she has not had any significant change from her baseline. Dexamethasone has caused hyperglycemia with blood sugars up to 400 and we are referring to diabetes management clinic. Otherwise she denies any significant nausea, emesis, fever, chills, night sweats, constipation, diarrhea, rash, mouthsores, or alopecia. She has not hadany change of baseline neuropathy. Liver function tests remain stable. She notes that her hip pain is well controlled since prior palliative radiation and she saw radiation oncology earlier this week with no new recommendations. I will send her myeloma labs including serum and urine protein electrophoresis, quantitative immunoglobulins, and serum kappa/lambda light chains in 2 weeks and follow-up with her in 3 weeks. She may be seen sooner if new issues arise. This is a 64-year-old lady on chronic disability has a history of arthritis, diabetes mellitus, hypertension, COPD, GERD, and fibromyalgia who [facility] mild to moderate thrombocytopenia. She states that she was followed with Dr. Kumari prior to his senior care and was told that she had an elevated protein level as well as thrombocytopenia but never had clinical bleeding. She is 4 para4 without complicationsand was never told that she was thrombocytopenic while . She is had multiple prior surgicalprocedures without any clinical bleeding. She had been recommended for a pain procedure with Dr. Wilson but he declined to do the procedure because her platelet count was less than 100,000. For this reason she received 2 platelet transfusions, with little improvement of her platelet count and her second transfusion resulted in throat tightening due to allergy to platelets . She has never beentreated with steroids and has never been told that she has immune thrombocytopenia. She has mild leukopenia with relative neutropenia, absolute neutrophil count of 400-800 and mild lymphocytosis. Hemoglobin is normal. She has not had any bright red blood per rectum or epistaxis. She has no history ofbleeding within the family however does have a mother and sister diagnosed with colon cancer, a brother diagnosed with lung cancer, and another sister diagnosedwith breast cancer. She had prior pain in the right hand mainly at the first MCP joint with some associated swelling and right foot pain and was evaluated by podiatry. She was told that her blood tests were negative forgout. She had screening with MALLORY, CCP, and rheumatoid factor all of which were negative. She says that she previously saw Dr. Petersen for cirrhosis but did not know of any specific therapy. We reviewed these findings from her liver ultrasound ordered by Dr. Benavidez Summer 2016. Initial consultation with me March 16, 2017. --The patient has been followed by me for some time for diagnosis of smoldering myeloma with a prior bone marrow biopsy May 2017 showing 15% plasma cells but the patient remained asymptomatic without bone pain or other CRAB criteria for therapy. She is also noted to have an ascending aortic aneurysm and has chronicliver disease with cirrhosis secondary to nonalcoholic steatohepatitis. She haschronic thrombocytopenia without bleeding ranging from 50-100,000 this is felt to be due to sequestration from her nonalcoholic steatohepatitis. She was previously on a liver transplant list but was recently notified that she is no longer a candidate for liver transplant. She has had chronic pain from f ibromyalgia but noted increasing bilateral hip and upper thigh pain over the last 6 months. She also is followed for EGD/colonoscopy with last documented procedure 09/21/2018: 1. Normal EGD, 2. Mild sigmoid diverticulosis, 3. Internal hemorrhoids, grade 2, 4. Anal fissure with active bleeding cauterized by bipolar cautery Bone osseous survey in June 2019 showed osteopenia and degenerative changes but no lytic or blastic lesion. Patient had an F-18 PET scan 01/02/2020 which showed multiple areas of involvementof bones with increased SUV activity. She was contacted with these results by phone and I recommended bone marrow aspirate and biopsy for assessment and analysis. Her prior labs were reviewed. Her SPEP does not show anymonoclonal gammopathy. On VAHID there appears to be a trace of monoclonal gammopathy. Free light chain ratio is less than 100. There is no evidence of renal sufficiency. Patient is not anemic. She doeshave some abnormal areas on bone scan. - Summary of Therapies Summary of Therapies: 1. 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 2. She underwent a single dose of palliative radiation therapy to bilateral hips, receiving 800 cGyto right and left hip in 1 fraction in separate vaz (with a single isocenter). The treatments were given with AP/PA vaz [id number] MV photons and MLC blocks. 3. Deferred active therapy for myeloma 2 months given COVID-19 epidemic with increased risk of myelosuppression and viral transmission of contacts. --Follow-up 03/05/2020 I discussed her case with Dr. Piter Benavidez at malignant hematology. --Given her significant hepatic dysfunction, I presented her case at malignant hematology tumor board to discuss optimal therapy. 4. Cycle 1 day 1 04/10/2020: Dose reduced Velcade 0.7 mg/m? twice weekly (day 1,day 4, day 8, day 11)every 3 weeks with dexamethasone 20 mg weekly and daratumumab 16 mg/kg weekly of each 21-day cycle.After first week, Velcade decreased to 0.7mg sq weekly due to thrombocytopenia. --We will need to watch liver function, platelet count, and neuropathy closely on Velcade. ROS Details: All systems reviewed & no additional complaints except as documented Subjective/ROS - Narrative: Constitutional: No Chills, No Diaphoresis, + stable Fatigue, No Fever, No Malaise, No Night Sweats,No Weakness, No Weight Gain, No Weight Loss Gastrointestinal: No Abdominal Pain, No Black Stool, No Bloating, No Bloody Stool, No Constipation,No Diarrhea, No Dysphagia, No Hematemesis, No Nausea, NoPostprandial Pain, No Rectal Bleeding, No Rectal Pain, No Vomiting, Other (chronic gastroesophageal reflux stable) --No jaundice or ascites but patient has longstanding nonalcoholic steatohepatitis with cirrhosis, previously followed by [facility] gastroenterology. Cardiovascular: No Chest Pain, No Edema, No Palpitations, No Syncope Genitourinary: No Discharge, No Dysuria, No Flank Pain, Frequency (chronic andunchanged), No Hematuria, No Incontinence, No Nocturia, No Urgency, No Urinary Retention Musculoskeletal: S/p right chest infusion port placement. 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 HEENT: No Blurred Vision, No Discharge, No Ear Pain, No Epistaxis, No Rhinorrhea, No Sore Throat--patient was seen in emergency department November 2019 with persistent epistaxis. She was treated withnasal clip and packing andwas advised to continue Afrin. No recurrent bleeding. Respiratory: No Cough, No Hemoptysis, + Shortness of Breath (chronic and unchanged due to COPD), NoSputum, No Wheezing--shortness of breath with daratumumab reaction dose 1 04/10/2020 (given a split dose over 2 days). No recurrent reaction since first dose. Neurological: No Dizziness, + stable Numbness/Tingling (reports long-standing bilateral foot numbness--unchanged since starting low-dose Velcade 04/10/2020), NoPre-existing Deficit (no history of stroke or seizure), intermittent headache Hematologic/Lymphatic: Positive for bleeding Easily due to known thrombocytopenia from sequestration, Bruises Easily, No Enlarged Lymph Nodes, Other (reports allergy to prior platelet transfusion) Endocrine: Excessive Sweating (hot flashes, postmenopausal) Flushing, No Intolerance to Cold, Intolerance to Heat Psychiatric: No Depressed Mood, No Insomnia Integumentary: No Jaundice, No Lesions, No Rash Allergic/Immunology: No Pruritus PMFSH - History Attestation statement: The following information was validated with the patient. - Medical History Medical History: Medical History (Last Reviewed 08/13/20 @ 20:45 by Fabiola Marinelli MD) Aortic aneurysm COPD (chronic obstructive pulmonary disease) Diabetes Fibromyalgia GERD (gastroesophageal reflux disease) Iron deficiency Neutropenia Smoldering multiple myeloma (SMM) Smoldering myeloma Temporary low platelet count - Surgical History Surgical History: Surgical History (Last Reviewed 08/13/20 @ 20:45 by Fabiola Marinelli MD) H/O: hysterectomy History of appendectomy History of cholecystectomy - Social History Smoking Status: Former smoker Tobacco Type: cigarettes Substance Use Type: None Social History Comments: Lives with son a grandaughter Home Medications & Allergies Allergies latex Allergy (Verified 04/18/19 11:57) Unknown Reaction moxifloxacin [From Avelox] Allergy (Verified 04/18/19 11:57) Hives Quinolones Allergy (Verified 04/18/19 11:57) Unknown Reaction tetracycline Allergy (Verified 04/18/19 11:57) Unknown Reaction Home Medications carvedilol 12.5 mg PO BID 11/20/17 [History Confirmed 08/13/20] duloxetine 60 mg PO DAILY 11/20/17 [History Confirmed 08/13/20] insulin detemir U-100 22 units SUB-Q QHS 11/20/17 [History Confirmed 08/13/20] oxycodone 10 mg PO TID PRN 11/20/17 [History Confirmed 08/13/20] albuterol sulfate 2 puff INHALATION Q6H PRN 11/24/17 [History Confirmed 08/13/20] fluticasone propion-salmeterol [Advair Diskus] 1 inh INHALATION Q12H PRN 11/24/17 [History Confirmed 08/13/20] omeprazole magnesium [Prilosec OTC] 40 mg PO DAILY 11/24/17 [History Confirmed 08/13/20] cyanocobalamin (vitamin B-12) 1,000 mcg PO DAILY 09/15/18 [History Confirmed 08/13/20] cholecalciferol (vitamin D3) [Vitamin D3] 1,000 unit PO DAILY 04/13/19 [History Confirmed 08/13/20] metformin 500 mg PO BID 03/05/20 [History Confirmed 08/13/20] dexamethasone 20 mg PO ONCE 90 Days #60 tab 04/02/20 [Rx Confirmed 08/13/20] ondansetron HCl [Zofran] 8 mg PO TID PRN #30 tab 04/02/20 [Rx Confirmed 08/13/20] diazepam [Valium] 5 mg PO DIRECTED 1 Days #2 tab 05/21/20 [Rx Confirmed 08/13/20] insulin NPH isoph U-100 human [Novolin N NPH U-100 Insulin] 20 unit SUBCUT DIRECTED 05/21/20 [History Confirmed 08/13/20] nystatin 100,000 unit BUCCAL DAILY 90 Days #500 ml 06/18/20 [Rx Confirmed 08/13/20] acyclovir 400 mg PO BID 90 Days #180 tab 07/23/20 [Rx Confirmed 08/13/20] Objective - Height/Weight Height/Weight: Height 5 ft 2.99 in Weight 104.1 kg BSA for Today's Weight 2.15 - Vital Signs Vital Signs: 08/13/20 09:55 Temperature 98.1 F Pulse Rate [Left Brachial] 88 Respiratory Rate 20 Blood Pressure [Left Arm] 130/83 02 Sat by Pulse Oximetry 96 - Pain Bilateral Leg Pain Intensity: 5 Bilateral Shoulder Pain Intensity: 6 Generalized Pain Intensity: 3 Bilateral Hip Pain Intensity: 5 Left Hip Pain Intensity: 4 Lower Back Pain Intensity: 7 Left Neck Pain Intensity: 4 - Emotional Needs Assessment Emotional Needs Assessment: Emotional Needs Identified? No Distress Screening Total 0 - ECOG Performance Status ECOG Score: 1 Physical Exam Narrative: Patient is alert and oriented x3. HEAD / FACE: Normocephalic. No tenderness to palpation over scalp, no sinus tenderness to palpation. EYES: Pupils are equal and reactive to light. Conjunctivae and lids are benign in appearance. Ocular movement intact. EARS: Hearing grossly intact. NOSE / MOUTH / THROAT: Nose, mouth, tongue and oropharynx are benign in appearance. No signs of inflammation. NECK / THYROID: Neck is supple. Thyroid is symmetrical, without thyromegaly, masses or palpable nodules. LYMPHATIC: No palpable cervical, supraclavicular, axillary, or inguinal adenopathy. RESPIRATORY: Normal inspection. Lungs clear to auscultation and percussion. No wheezing, rales, rhonchi or rubs. Normal effort. Right chest wall infusion portwithout erythema. CARDIOVASCULAR: Regular rate and rhythm. No murmurs, gallops, or rubs. VASCULAR: Carotid, radial, femoral and pedal pulses present bilaterally. No bruits. ABDOMEN: Bowel sounds normoactive. Soft, nontender and non-distended. No hepatosplenomegaly. No masses. GENITOURINARY: No CVA tenderness. No suprapubic fullness or tenderness. No groinadenopathy. No evidence of hernias. INTEGUMENTARY: The skin is unremarkable. No rashes. No suspicious lesions. No bruising or petechiaenoted. BACK / SPINE: The back is nontender to percussion over vertebral bodies or SI joints. No step off deformity. MUSCULOSKELETAL: Normal musculature, no joint deformities or abnormalities, normal range of motion for all four extremities. EXTREMITIES: No edema, cyanosis or clubbing. No Destini sign. NEUROLOGICAL: Alert and oriented. Cranial nerves intact. No gross motor or sensory deficits, patient ambulates unassisted. PSYCHIATRIC: No anxiety or evidence of depression. Results - Labs Labs: Diagram of Most Recent CBC and CMP 08/06/20 10:11 08/06/20 10:11 Labs - Last 7 Days 08/06/20 10:11: PHA Creatinine Clear 140.40, Sodium 140, Potassium 3.8, [id number], Carbon Ubypcwf84.0, BUN 12, Creatinine 0.48, Est GFR ( Amer) > 60, Est GFR (Non-Af Amer) > 60, Glucose 136 H, Calcium 9.0, Total Bilirubin 1.3 H, AST 33, ALT 23, Alkaline Phosphatase 94 H, Total Protein 5.8 L, Albumin 3.2, Globulin 2.6, Albumin/Globulin Ratio 1.2 08/06/20 10:11: WBC 3.9 L, Corrected WBC 3.9, RBC 4.21, Hgb 11.3 L, Hct 35.4, MCV 84.0, MCH 26.9, MCHC 32.1, RDW 17.3 H, Plt Count 79 L, MPV 8.3, Neut % (Auto) 35.7, Lymph % (Auto) 50.1, Hodgeman % (Auto) 8.8, Eos % (Auto) 5.3, Baso % (Auto) 0.1, Neut # (Auto) 1.4 L, Lymph # (Auto) 2.0, Hodgeman # (Auto) 0.3, Eos # (Auto) 0.2, Baso # (Auto) 0.0, Nucleated RBC % (auto) 0.1 - Impressions No new imaging for review. Assessment and Plan (1) Multiple myeloma Qualifiers: Multiple myeloma remission status: not in remission Qualified Code(s): C90.00 - Multiple myeloma not having achieved remission Mojgan 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 She has high risk cytogenetics and I [facility]. Her persistent thrombocytopenia made her ineligible for any clinical trials, and preventedher from receiving local pain procedures given her chronic low back pain. --05/2017 PET/CT images and reports performed for staging to exclude bone involvement with myeloma. 2 indeterminate areas of uptake thought to be degenerative arthritis vs early bone findings of myeloma (right parietooccipital area and upper sternum). She has remained asymptomatic in these areas andwe arranged repeat PET/CT at 6 months with CBC, CMP, SPEP and UPEP with immunofixation, serum kappa/lambda light chain analysis, and quantitative immunoglobulins. --No lytic lesion seen on f/u PET/CT 11/2017 and all labs stable. Also had head CT to evaluate for mastoiditis in 03/2018 unremarkable. 05/2018 skeletal survey showed no lytic lesions and she has stableshoulder, hand, and right SI joint pain (although likely due to fibromyalgia. --Prior osseous survey 07/01/2019 showed osteopenia but no compression fractures or lytic lesions were identified. She had no significant change in myeloma labs(mild increase of urine M-spike, kappa/lambda ratio, and normal serum M- spike and quant immunoglobulins). Urine protein still undetectable, therefore will continue surveillance every 6 months with the same labs--no hypercalcemia, renaldysfunction (or proteinuria), anemia, or new bone symptoms. [...] proteins with urine M spike 43.1 but totalprotein 34.4, with no reported urine creatinine. --We deferred immunosuppressive chemotherapy for about 1 month due to control ofsymptoms after palliative radiation and concern of potential peak of COVID-19 inlate January early March. --She presented for follow-up 03/05/2020 and we discussed potential therapy options (with son available by phone). --I discussed her case with Dr. Piter Benavidez of malignant hematology, possibly presenting the patient in hematology tumor board at [facility]. --Infusion port placed 03/22/2020 at [facility] due to low platelets. No complications. --03/12/2020: Myeloma labs with no serum M-spike, + urine M spike 22.2mg/24h (14%). Immunofixation IgA lambda specificity. IgA normal 227, Serum kappa 20.6, serum lambda 516.7, Free kappa/lambda ratio0.04. Normal renal function and calcium. Lower ANC 600 and platelets 40,000 --04/10/2020: Started cycle 1 day 1 of weekly dexamethasone 20 mg IV (careful to watch blood sugars with diabetes and known hepatic dysfunction), decreased dose of bortezomib 0.7 mg/m? twice weekly for2 weeks on 1 week off (due to known liver disease and thrombocytopenia), and daratumumab 8mg/kg D1,D2 IV first week,then 16 mg/kg IV weekly and we may consider Revlimid as a 4th medication if needed (deferred for worsening neutropenia and thrombocytopenia--I am reluctant to add this therapy initially). --She has baseline cirrhosis with chronic thrombocytopenia and I am attempting to treat her with the least myelosuppressive regimen after 2 month deferral of therapy due to COVID-19 pandemic noted above. Patient does not have any currentsigns or symptoms of infection. On Acyclovir 400mg bid for VZV prophylaxis. --We requested prior liver biopsy from [facility] for review of the extentof her known liver dysfunction. It is doubtful she will be a high-dose chemotherapy/peripheral blood stem cell transplant candidate given her history of cirrhosis and chronic cytopenias. --04/19/2020 toxicity follow-up: Other than daratumumab reaction with cycle 1 day1 and hyperglycemiasecondary to dexamethasone, she has not had any other new toxicities of therapy thrombocytopenia remains in the 40,000 range without bleeding and we will continue treating with 50% dose Velcade as long as she doesnot have worsening hepatic function, thrombocytopenia, or neuropathy. I am sending [facility] diabetes management clinic for her hyperglycemia to adjust her insulin regimen (patient has previously discussed this with her primary physician who agrees). --05/21/2020: Tolerating weekly daratumumab, bortezomib, dexamethasone well. Diabetes management improving. Thrombocytopenia stable in 50,000 range without bleeding. --05/03/2020: Myeloma labs with no serum M-spike (not performed), + urine M spike now resolved. Immunofixation IgA lambda specificity. IgA normal 112, Serum kappa 7.8, serum lambda 41.3, Free kappa/lambda ratio 0.19 (improved). Normal renal function and calcium. Mildly improved ANC 900 and platelets 54,000 --Restaging myeloma labs (CBC, CMP, SPEP and UPEP with immunofixation, serum kappa/lambda light chain analysis, and quantitative immunoglobulins) ordered in 1 month and I will follow-up with her in 5-6 weeks for toxicity review. --06/18/2020: No new symptoms on weekly daratumumab, bortezomib, dexamethasone after dose reductionsof bortezomib for cytopenias and neuropathy. Myeloma labs now show lower IgA 72. Now M-spike IgG kappa after Daratumumab--previously IgA lambda. Lambda light chain has decreased from 516 to 41.3 to now 18.5 with normalization of K/L ratio. Continue followup myeloma labs in 6 weeks, visit in8 weeks.Leukopenia and thrombocytopenia relatively stable on current therapy. --08/13/2020: Improving thrombocytopenia (79,000) and decreasing M-spike, IgA and lambda light chain. Next myeloma f/u with labs in 6 weeks, sooner prn. This is a moderate complexity visit over 30 minutes for review of toxicities anddiabetes management. I previously spoke with Dr. Benavidez regarding treatment options and coordinated [facility] hematology tumor board presentation. 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 I previously reviewed her outpatient records from [facility], including review of notes, laboratories, and prior bone marrow biopsy 13 years ago. 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 Most recent platelet count is relatively stable at 54,000 but no clinical bleeding. She waspreviously referred to weight reduction clinic and may have slow improvement of steatohepatitis with lifestyle modification. Unless she has active bleeding or planned surgery, we will continue observation during treatment of active myelomato commence next month as noted above. --Agree with recommendation for EGD surveillance for varices (last was 09/2018--negative). This will be deferred during current COVID-19 epidemic. --Prior vitamin B12 and folic acid are normal, for known history of neuropathy. As noted above, I reviewed the negative M spike on serum protein electrophoresiswith immunofixation, but positive for Bence Murray protein on urine protein electrophoresis. Her Quantitative immunoglobulins IgG, IgA, and I gM were all within normal limits, however her serum kappa lambda light chain analysis showeda predominance of lambda light chains. --Previous labs for lupus anticoagulant with DRVVT, hexagonal phase phospholipid, anti-cardiolipin IgG and IgA, and beta 2 glycoprotein IgG and IgA were within normal limits. --Evaluated in ED November 2019 for epistaxis which resolved. Platelet count wasstable at 12/28/2019 follow-up. She continues surveillance with liver clinic at [facility] and I will continue to follow her every 6 months, sooner if newbleeding issues arise. --04/02/2020: We reviewed informed consent for Daratumumab/Velcade/Dexamethasone for active myeloma therapy. I requested prior liver biopsy results and notes from liver clinic at [facility]. Platelet count in 40,000 range but patient has had no active bleeding following infusion port placement 03/22/2020. --08/13/2020: Cycle 6 week 2 toxicity check with improved thrombocytopenia 79,000 range with no bleeding. We will continue current dosing with Velcade 0.7mg/m2 sq (now once weekly), dexamethasone 20 mg weekly, and full dose daratumumab with close follow-up of liver function and platelet counts. 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 She wasreferred to Weight Management Clinic to attempt weight reduction through diet and exercise that may prevent further fatty infiltration that may further impairher liver function. [facility] hepatology discussed liver transplant but sheis likely no longer a candidate for this given active myeloma. We chose least hepatotoxic regimen for treatment of her active myeloma with 50% dose reduction of Velcade. Liver function remained stable since start of therapy 04/10/2020. --Requested prior liver biopsy and [facility] liver clinic records. (4) Neutropenia, unspecified Qualifiers: Neutropenia type: unspecified Qualified Code(s): D70.9 - Neutropenia, unspecified Previous worsening neutropenia without infection (current WBC 2000, ANC 600)--thought to be relatedto new diagnosis of active myeloma and no nutritional deficiency. Treating with less myelosuppressive regimen (Velcade rather than Revlimid) for myeloma. Of note no dysplastic changes were noted on bone marrow biopsy. Current white blood cell count was stable with absolute neutrophil count had improved to [id number]. We will continue to follow closely on current therapy and continue acyclovir prophylaxis. (5) Diabetes mellitus Qualifiers: Diabetes mellitus type: type 2 Diabetes mellitus complication status: without complication Suboptimal diabetes control with recent Hemoglobin A1c 8.4--notes recent adjustment in her diabetesregimen by her primary physician. --04/19/2020 follow-up: She notes that since starting weekly dexamethasone therapy at 20mg dose blood sugars were as high as 400. She agreed to consultation with diabetes management clinic and likely requires supplemental insulin doses on steroid days. --Continue followup in diabetes management clinic. (6) Obesity Qualifiers: Body mass index: BMI 40.0-44.9 KAPADIA--continue f/u in weight reduction clinic. Defer to PCM. (7) Cancer-related pain Improved symptoms after palliative radiation to bilateral hips--one dose 02/07/2020. Will continue tofollow on myeloma chemotherapy. - Chemo Plan Chemo Plan (Dose, Rate, Freq): Palliative radiation to 02/07/2020, deferred active therapy for myeloma for 8 weeks due to current COVID-19 epidemic. Discussed at Malignant Hematology Tumor Board early March to determine optimal regimen given her comorbidities. --04/10/2020: cycle 1, day 1 weekly dexamethasone 20 mg IV (careful to watch bloodsugars with diabetes and known hepatic dysfunction), decreased dose of bortezomib 0.7 mg/m? twice weekly for 2 weeks on1 week off (decreased to once weekly after first cycle due to known liver disease and thrombocytopenia), and daratumumab 8mg/kg D1,D2 IV first week, then 16 mg/kg IV weekly Goal of Treatment: Palliative - Time with Patient Total Time Spent with Patient: 30 min Coordination of Care & Counseling Time: Greater than 50% of time spent with patient was for coordination of care (as documented) and [id number] counseling of patient and/or family. Dictated By: Fabiola Marinelli MD DD/ [id number] Signed By: <Electronically signed by MD Fabiola Marinelli> 08/13/202056 [facility] Work Phone: [phone]) 492-606708-18-2020 Progress note Author Fabiola Marinelli [facility] June 19, 2020 9:53pmNote Date/TimeAugust 2019 2:11pm[facility] [place] [id number] Hem/Onc Follow Up Note - OP Signed Patient: Mojgan Pérez MR#: [id number] : 1955 Acct:[id number] Age/Sex: 64 / F Type: REG RCR Copies to: MD Yinka Downey MD~ Subjective Date/Time of Service: Date of Service: 06/18/2020 Time of Service: 14:11 Chief Complaint: Patient is here for follow up appointment before treatment tomorrow. Patient has MRI's for review. Patient complains of fatigue, slight neuropathy in bilt hands and feet. Patient also complains of sore red tongue. HPI: 06/18/2020: Mojgan is here for cycle 1 week 1 (06/19) daratumumab 16 mg/kg weekly, Velcade 0.7 mg/m?now sq once weekly for every 5-week cycle (35 days), and dexamethasone 20 mg weekly. Tolerating well with stable leukopenia and thrombocytopenia. Mild increased symptoms of hand and foot neuropathy, but no limitation in activity. Now following with diabetes management clinic with variable glucose control. We reviewed lower IgA (now M-spike IgG kappa after Daratumumab--previously IgA lambda). Lambda light chain has decreased from 516 to 41.3 to now 18.5 with normalization of K/L ratio. Continue followup myeloma labs in 6 weeks, visit in 8 weeks. 05/21/2020: Mojgan is here for cycle 2 week 4 daratumumab 16 mg/kg weekly, Velcade 0.7 mg/m? now sqonce weekly for every 5-week cycle (35 days), and dexamethasone 20 mg weekly. Tolerating well with stable leukopenia and thrombocytopenia. No significant neuropathy. Noted to have improvement in lambda light chains. No further daratumumab infusion reactions. No infections,stable constipation, pain control improved. No other complaints. Continue monthly f/u with myeloma labs. --Diabetes management--added insulin on dexamethasone days. Hyperglycemia improving. 04/19/2020: Mojgan is here for cycle 1 week 2 daratumumab 16 mg/kg weekly, Velcade 0.7 mg/m? twice weekly for first 2 weeks of every 3-week cycle, and dexamethasone 20 mg weekly. She did have an infusion reaction with first daratumumab with dyspnea and flushing but this improved after first dose and shehas not had recurrent infusion reactions. We have continued Velcade despite platelet counts in the 40,000 range without bleeding as we know that her baseline platelet counts remain in this range and she has not had any significant change from her baseline. Dexamethasone has caused hyperglycemiawith blood sugars up to 400 and we are referring to diabetes management clinic. Otherwise she denies any significant nausea, emesis, fever, chills, night sweats, constipation, diarrhea, rash, mouth sores, or alopecia. She has not hadany change of baseline neuropathy. Liver function tests remain stable. She notes that her hip pain is well controlled since prior palliative radiation and she saw radiation oncology earlier this week with no new recommendations. I will send her myeloma labs including serum and urine protein electrophoresis, quantitative immunoglobulins, and serum kappa/lambda light chains in 2 weeks andfollow-up with her in 3 weeks. She may be seen sooner if new issues arise. 04/02/2020: Mojgan presents [facility] by interventional radiologydue to platelet count 40,000--she had increased bruising at site post procedure, but this has completely resolved. Her hip pain iswell controlled since completion of palliative radiation and no new areas of pain. She has previously reviewed information regarding Daratumumab (first dosesplit 8mg/kg IV D1,D2, then if well tolerated 16mg/kg IV weekly), Velcade at about 50% dose (for liver dysfunction) 0.7mg/m2 D1,D4,D8, D11, and Qurbjxxpvbewb21pm IV weekly--repeat for every 3 week cycles 1st 3 cycles. She will take chemo class and likely start therapy within 2 weeks with toxicity visit in 3 weeks. Today we reviewed chemotherapy counseling for Daratumumab, Velcade, and Dexamethasone. Common toxicities were reviewed to include infusion reaction including rash/dyspnea/wheezing, myelosuppression, fatigue, nausea, vomiting, constipation, diarrhea, mouth sores, and alopecia. Other toxicities may in cludepneumonitis, neurologic, thromboembolism, hyperglycemia, hepatic and renal toxicities. The patient signed informed consent and will follow-up as directed. 01/18/2020 (phone followup)--The patient's son was available by phone and her daughter was contactedin a separate phone call as patient presented unaccompanied due to COVID-19 precautions in our clinic during the current epidemic. Bone marrow biopsy results were reviewed as follows from procedure pe rformed 01/26/2020: --Bone marrow biopsy was suboptimal for evaluation. --Increased lambda light chain restricted monoclonal plasma cells (1.9% by flow cytometry, approximately 6% and aspirate count, but 50% by immunohistochemical stains CD138). Sideroblastic iron present, negative for ring sideroblasts. Peripheral blood smear with mild red blood cell anisocytosis and polychromasia, leukopenia with absolute neutropenia (1000) and thrombocytopenia (54,000) consistent with prior baseline. Note: I discussed the results with Dr. Crook 01/26/2020. Preliminary findings were also discussed with Dr. Cummings 01/27/2020. Morphologic findings, immunohistochemical stains, flow cytometry, and ancillary studies may under represent the extent and severity of disease. The results of FISH myeloma panelwith prognostic markers and cytogenetic analysis are pending. --Given the patient's hip pain and presence of lytic lesions, she meets clinicalcriteria for activemyeloma. Given her hip pain and lytic lesions in weightbearing areas she was offered radiation therapy. She had a limited courseof hypofractionated palliative therapy to bilateral proximal femurs [address] Ahn. We discussed that given the COVID-19 epidemic and absence of othersignificant changes other than bony lesions (normal renal function, normal calcium, stable cytopenias), I would defer active therapy for myeloma for 4 to 6 weeks. Since she has significant history ofliver disease I will discuss her case with Dr. Piter Benavidez at [facility] malignant hematology for optimal regimen. The patient is not a transplant candidate given her nonalcoholic steatohepatitis and chronic thrombocytopenia but may be a candidate for either doublet therapy (Revlimid/dexamethasone) or triplet therapy with either Velcade/Revlimid/dexamethasone or daratumumab/Revlimid/dexamethasone. --02/03/2020: Mojgan presented unaccompanied for follow-up of bone marrow aspiration and biopsy performed by Dr. 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 The patient had been noting increased left hip pain over the past several months andplain films of the pelvis and bilateral femurs did show subtle lucencies in the bilateral proximal femurs corresponding to PET/CT findings but no other additional sclerotic lesions identified. No pathologic fractures were seen. --03/05/2020: Mojgan notes improvement of bilateral hip pain since radiation. No other changes in medical history in the past month--no infections, normal renal function, no hypercalcemia. Stable platelet counts without bleeding. Shewas given written literature regarding Dexamethasone, Velcade (thatwould be dose reduced to 0.7mg/m2 twice weekly), weekly Daratumumab and Revlimid, but I will defer decision of which regimen to use until discussion in malignant hematology tumor board. Also referring for infusion port placement prior to initiating therapy. Sign informed consent prior to initiating therapy. --Discussed with Dr. Benavidez who favors Daratumumab combination--will request prior liver biopsy and records from [facility] liver clinic. The patient and her son (by telephone) expressed understanding and will follow- up as directed in 2 weeks for consent and likely start of therapy. This is a 64-year-old lady on chronic disability has a history of arthritis, diabetes mellitus, hypertension, COPD, GERD, and fibromyalgia who was previously[facility] for chronic mild to moderate thrombocytopenia. She states that she was followed with Dr. Kumari prior to his senior care and was told that she had an elevated protein level as well as thrombocytopenia but never had clinical bleeding. She is 4 para4 without complicationsand was never told that she was thrombocytopenic while . She is had multiple prior surgicalprocedures without any clinical bleeding. She had been recommended for a pain procedure with Dr. Wilson but he declined to do the procedure because her platelet count was less than 100,000. For this reason she received 2 platelet transfusions, with little improvement of her platelet count and her second transfusion resulted in throat tightening due to allergy to platelets . She has never beentreated with steroids and has never been told that she has immune thrombocytopenia. She has mild leukopenia with relative neutropenia, absolute neutrophil count of 400-800 and mild lymphocytosis. Hemoglobin is normal. She has not had any bright red blood per rectum or epistaxis. She has no history ofbleeding within the family however does have a mother and sister diagnosed with colon cancer, a brother diagnosed with lung cancer, and another sister diagnosedwith breast cancer. She had prior pain in the right hand mainly at the first MCP joint with some associated swelling and right foot pain and was evaluated by podiatry. She was told that her blood tests were negative forgout. She had screening with MALLORY, CCP, and rheumatoid factor all of which were negative. She says that she previously saw Dr. Petersen for cirrhosis but did not know of any specific therapy. We reviewed these findings from her liver ultrasound ordered by Dr. Benavidez Summer 2016. Initial consultation with me March 16, 2017. --The patient has been followed by me for some time for diagnosis of smoldering myeloma with a prior bone marrow biopsy May 2017 showing 15% plasma cells but the patient remained asymptomatic without bone pain or other CRAB criteria for therapy. She is also noted to have an ascending aortic aneurysm and has chronicliver disease with cirrhosis secondary to nonalcoholic steatohepatitis. She haschronic thrombocytopenia without bleeding ranging from 50-100,000 this is felt to be due to sequestration from her nonalcoholic steatohepatitis. She was previously on a liver transplant list but was recently notified that she is no longer a candidate for liver transplant. She has had chronic pain from f ibromyalgia but noted increasing bilateral hip and upper thigh pain over the last 6 months. She also is followed for EGD/colonoscopy with last documented procedure 09/21/2018: 1. Normal EGD, 2. Mild sigmoid diverticulosis, 3. Internal hemorrhoids, grade 2, 4. Anal fissure with active bleeding cauterized by bipolar cautery Bone osseous survey in June 2019 showed osteopenia and degenerative changes but no lytic or blastic lesion. Patient had an F-18 PET scan 01/02/2020 which showed multiple areas of involvementof bones with increased SUV activity. She was contacted with these results by phone and I recommended bone marrow aspirate and biopsy for assessment and analysis. Her prior labs were reviewed. Her SPEP does not show anymonoclonal gammopathy. On VAHID there appears to be a trace of monoclonal gammopathy. Free light chain ratio is less than 100. There is no evidence of renal sufficiency. Patient is not anemic. She doeshave some abnormal areas on bone scan. - Summary of Therapies Summary of Therapies: 1. 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 2. She underwent a single dose of palliative radiation therapy to bilateral hips, receiving 800 cGyto right and left hip in 1 fraction in separate vaz (with a single isocenter). The treatments were given with AP/PA vaz [id number] MV photons and MLC blocks. 3. Deferred active therapy for myeloma 2 months given COVID-19 epidemic with increased risk of myelosuppression and viral transmission of contacts. --Follow-up 03/05/2020 I discussed her case with Dr. Piter Benavidez at malignant hematology. --Given her significant hepatic dysfunction, I presented her case at malignant hematology tumor board to discuss optimal therapy. 4. Cycle 1 day 1 04/10/2020: Dose reduced Velcade 0.7 mg/m? twice weekly (day 1,day 4, day 8, day 11)every 3 weeks with dexamethasone 20 mg weekly and daratumumab 16 mg/kg weekly of each 21-day cycle.After first week, Velcade decreased to 0.7mg sq weekly due to thrombocytopenia. --We will need to watch liver function, platelet count, and neuropathy closely on Velcade. ROS Details: All systems reviewed & no additional complaints except as documented Subjective/ROS - Narrative: Constitutional: No Chills, No Diaphoresis, + stable Fatigue, No Fever, No Malaise, No Night Sweats,No Weakness, No Weight Gain, No Weight Loss Gastrointestinal: No Abdominal Pain, No Black Stool, No Bloating, No Bloody Stool, No Constipation,No Diarrhea, No Dysphagia, No Hematemesis, No Nausea, NoPostprandial Pain, No Rectal Bleeding, No Rectal Pain, No Vomiting, Other (chronic gastroesophageal reflux stable) --No jaundice or ascites but patient has longstanding nonalcoholic steatohepatitis with cirrhosis, previously followed by [facility] gastroenterology. Cardiovascular: No Chest Pain, No Edema, No Palpitations, No Syncope Genitourinary: No Discharge, No Dysuria, No Flank Pain, Frequency (chronic andunchanged), No Hematuria, No Incontinence, No Nocturia, No Urgency, No Urinary Retention Musculoskeletal: S/p right chest infusion port placement. 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 HEENT: No Blurred Vision, No Discharge, No Ear Pain, No Epistaxis, No Rhinorrhea, No Sore Throat--patient was seen in emergency department November 2019 with persistent epistaxis. She was treated withnasal clip and packing andwas advised to continue Afrin. No recurrent bleeding. Respiratory: No Cough, No Hemoptysis, + Shortness of Breath (chronic and unchanged due to COPD), NoSputum, No Wheezing--shortness of breath with daratumumab reaction dose 1 04/10/2020 (given a split dose over 2 days). No recurrent reaction since first dose. Neurological: No Dizziness, + stable Numbness/Tingling (reports long-standing bilateral foot numbness--unchanged since starting low-dose Velcade 04/10/2020), NoPre-existing Deficit (no history of stroke or seizure), intermittent headache Hematologic/Lymphatic: Positive for bleeding Easily due to known thrombocytopenia from sequestration, Bruises Easily, No Enlarged Lymph Nodes, Other (reports allergy to prior platelet transfusion) Endocrine: Excessive Sweating (hot flashes, postmenopausal) Flushing, No Intolerance to Cold, Intolerance to Heat Psychiatric: No Depressed Mood, No Insomnia Integumentary: No Jaundice, No Lesions, No Rash Allergic/Immunology: No Pruritus PMFSH - History Attestation statement: The following information was validated with the patient. Source: Old Records Reviewed - Medical History Medical History: Medical History (Last Reviewed 06/19/20 @ 21:34 by Fabiola Marinelli MD) Aortic aneurysm COPD (chronic obstructive pulmonary disease) Diabetes Fibromyalgia GERD (gastroesophageal reflux disease) Iron deficiency Neutropenia Smoldering multiple myeloma (SMM) Smoldering myeloma Temporary low platelet count - Surgical History Surgical History: Surgical History (Last Reviewed 06/19/20 @ 21:34 by Fabiola Marinelli MD) H/O: hysterectomy History of appendectomy History of cholecystectomy - Social History Smoking Status: Former smoker Tobacco Type: cigarettes Substance Use Type: None Social History Comments: [facility] Home Medications & Allergies Allergies latex Allergy (Verified 04/18/19 11:57) Unknown Reaction moxifloxacin [From Avelox] Allergy (Verified 04/18/19 11:57) Hives Quinolones Allergy (Verified 04/18/19 11:57) Unknown Reaction tetracycline Allergy (Verified 04/18/19 11:57) Unknown Reaction Home Medications carvedilol 12.5 mg PO BID 11/20/17 [History Confirmed 06/18/20] duloxetine 60 mg PO DAILY 11/20/17 [History Confirmed 06/18/20] insulin detemir U-100 22 units SUB-Q QHS 11/20/17 [History Confirmed 06/18/20] oxycodone 10 mg PO TID PRN 11/20/17 [History Confirmed 06/18/20] albuterol sulfate 2 puff INHALATION Q6H PRN 11/24/17 [History Confirmed 06/18/20] fluticasone propion-salmeterol [Advair Diskus] 1 inh INHALATION Q12H PRN 11/24/17 [History Confirmed 06/18/20] omeprazole magnesium [Prilosec OTC] 40 mg PO DAILY 11/24/17 [History Confirmed 06/18/20] cyanocobalamin (vitamin B-12) 1,000 mcg PO DAILY 09/15/18 [History Confirmed 06/18/20] cholecalciferol (vitamin D3) [Vitamin D3] 1,000 unit PO DAILY 04/13/19 [History Confirmed 06/18/20] metformin 500 mg PO BID 03/05/20 [History Confirmed 06/18/20] acyclovir 400 mg PO BID 90 Days #180 tab 04/02/20 [Rx Confirmed 06/18/20] dexamethasone 20 mg PO ONCE 90 Days #60 tab 04/02/20 [Rx Confirmed 06/18/20] ondansetron HCl [Zofran] 8 mg PO TID PRN #30 tab 04/02/20 [Rx Confirmed 06/18/20] diazepam [Valium] 5 mg PO DIRECTED 1 Days #2 tab 05/21/20 [Rx Confirmed 06/18/20] insulin NPH isoph U-100 human [Novolin N NPH U-100 Insulin] 20 unit SUBCUT DIRECTED 05/21/20 [History Confirmed 06/18/20] nystatin 100,000 unit BUCCAL DAILY 90 Days #500 ml 06/18/20 [Rx] Objective - Height/Weight Height/Weight: Height 5 ft 2.99 in Weight 107.501 kg BSA for Today's Weight 2.19 - Vital Signs Vital Signs: 06/18/20 13:57 Temperature 97.3 F L Pulse Rate [Left Brachial] 75 Respiratory Rate 18 Blood Pressure [Left Arm] 165/82 H 02 Sat by Pulse Oximetry 98 - Pain Bilateral Leg Pain Intensity: 5 Bilateral Shoulder Pain Intensity: 6 Generalized Pain Intensity: 3 Bilateral Hip Pain Intensity: 5 Left Hip Pain Intensity: 4 Lower Back Pain Intensity: 7 Left Neck Pain Intensity: 4 - Emotional Needs Assessment Emotional Needs Assessment: Emotional Needs Identified? No Distress Screening Total 0 - ECOG Performance Status ECOG Score: 1 Physical Exam Narrative: Patient is alert and oriented x3. HEAD / FACE: Normocephalic. No tenderness to palpation over scalp, no sinus tenderness to palpation. EYES: Pupils are equal and reactive to light. Conjunctivae and lids are benign in appearance. Ocular movement intact. EARS: Hearing grossly intact. NOSE / MOUTH / THROAT: Nose, mouth, tongue and oropharynx are benign in appearance. No signs of inflammation. NECK / THYROID: Neck is supple. Thyroid is symmetrical, without thyromegaly, masses or palpable nodules. LYMPHATIC: No palpable cervical, supraclavicular, axillary, or inguinal adenopathy. RESPIRATORY: Normal inspection. Lungs clear to auscultation and percussion. No wheezing, rales, rhonchi or rubs. Normal effort. Right chest wall infusion portwithout erythema. CARDIOVASCULAR: Regular rate and rhythm. No murmurs, gallops, or rubs. VASCULAR: Carotid, radial, femoral and pedal pulses present bilaterally. No bruits. ABDOMEN: Bowel sounds normoactive. Soft, nontender and non-distended. No hepatosplenomegaly. No masses. GENITOURINARY: No CVA tenderness. No suprapubic fullness or tenderness. No groinadenopathy. No evidence of hernias. INTEGUMENTARY: The skin is unremarkable. No rashes. No suspicious lesions. No bruising or petechiaenoted. BACK / SPINE: The back is nontender to percussion over vertebral bodies or SI joints. No step off deformity. MUSCULOSKELETAL: Normal musculature, no joint deformities or abnormalities, normal range of motion for all four extremities. EXTREMITIES: No edema, cyanosis or clubbing. No Destini sign. NEUROLOGICAL: Alert and oriented. Cranial nerves intact. No gross motor or sensory deficits, patient ambulates unassisted. PSYCHIATRIC: No anxiety or evidence of depression. Results - Labs Labs: Diagram of Most Recent CBC and CMP 06/18/20 13:04 06/18/20 13:04 Labs - Last 7 Days 06/18/20 13:04: PHA Creatinine Clear 134.72, Sodium 134 L, Potassium 3.9, Chloride 99, Carbon Dioxide 25.7, BUN 11, Creatinine 0.50, Est GFR ( Amer) > 60, Est GFR (Non-Af Amer) > 60, Glucose 324 H, Calcium 8.7, Total Bilirubin 1.1, AST 31, ALT 33, Alkaline Phosphatase 81, Total Protein5.1 L, Albumin 2.9 L, Globulin 2.2, Albumin/Globulin Ratio 1.3 06/18/20 13:04: WBC 2.7 L, Corrected WBC 2.7 L, RBC 3.56 L, Hgb 10.3 L, Hct 31.1L, MCV 87.4, MCH 29.0, MCHC 33.2, RDW 17.3 H, Plt Count 50 L, MPV 8.8, Neut % (Auto) 35.1, Lymph % (Auto) 52.5, Hodgeman % (Auto) 10.0, Eos % (Auto) 2.3, Baso % (Auto) 0.1, Neut # (Auto) 1.0 L, Lymph # (Auto) 1.4, Hodgeman # (Auto) 0.3, Eos # (Auto) 0.1, Baso # (Auto) 0.0, Nucleated RBC % (auto) 0.4 06/11/20 10:02: Serum Total Protein 5.2 L, Albumin (Send Out) 3.0, Globulin (PEP) 2.2, Albumin/Globulin (PEP) 1.4, Hsjvd-5-Lktyhsvkz 0.3, Cjnzy-7-Fykycaeao 0.6, Beta Globulins 0.8, Gamma Globulins 0.5, M-Jaspal 0.2 H, PEP Note , IgG 644,IgA 72 L, IgM 33, Serum Immunofixation , Free [place] LC, Quant 8.9, Free Lambda LC, Quant 18.5, Free [place]/Lambda Ratio 0.48 - Impressions Date of Service: 05/31/20 MR/MR cervical spine wo con: myeloma with neck pain, r/o lytic lesion/unstable ([id number]) XR/XR pre/post mri xray: C90.00 Copies to: [...] spondylosis is present. Anterior endplate spurs identified. Mildposterior disc osteophyte complex identified. Central canal is [...] dictated by: Jorge Duffy M.D.05/31/2020 10:39 AM Assessment and Plan (1) Multiple myeloma Qualifiers: Multiple myeloma remission status: not in remission Qualified Code(s): C90.00 - Multiple myeloma not having achieved remission Mojgan 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 She has high risk cytogenetics and I [facility]. Her persistent thrombocytopenia made her ineligible for any clinical trials, and preventedher from receiving local pain procedures given her chronic low back pain. --05/2017 PET/CT images and reports performed for staging to exclude bone involvement with myeloma. 2 indeterminate areas of uptake thought to be degenerative arthritis vs early bone findings of myeloma (right parietooccipitalarea and upper sternum). She has remained asymptomatic [...] showed no lytic lesions and she has stableshoulder, hand, and right SI joint pain (although likely due to fibromyalgia. --Prior osseous survey 07/01/2019 showed osteopenia but no compression fractures or lytic lesions were identified. She had no significant change in myeloma labs(mild increase of urine M-spike, kappa/lambda ratio, and normal serum M- spike and quant immunoglobulins). Urine protein still undetectable, therefore will continue surveillance every 6 months with the same labs--no hypercalcemia, renaldysfunction (or proteinuria), anemia, or new bone symptoms. --Due to COVID- epidemic, her 6-month follow-up was performed by [...] 1) on 02/07/2020 to minimize exposures during COVID- epidemic. --The patient's myeloma labs (December 2019) do show normal quantitative immunoglobulins with IgA lambda monoclonal protein by immunofixation (serum IgA is 272). Her kappa/lambda ratio shows a predominance of free lambda 479 with elevated free kappa 23.6 and abnormal free kappa/lambda ratio of 0.05. Urine immunofixation also shows lambda type Bence-Murray proteins with urine M spike 43.1 but totalprotein 34.4, with no reported urine creatinine. --We deferred immunosuppressive chemotherapy for about 1 month due to control ofsymptoms after palliative radiation and concern of potential peak of COVID-19 inlate January early March. --She presented for follow-up 03/05/2020 and we discussed potential therapy options (with son available by phone). --I discussed her case with Dr. Piter Benavidez of malignant hematology, possibly presenting the patient in hematology tumor board at [facility]. --Infusion port placed 03/22/2020 at [facility] due to low platelets. No complications. --03/12/2020: Myeloma labs with no serum M-spike, + urine M spike 22.2mg/24h (14%). Immunofixation IgA lambda specificity. IgA normal 227, Serum kappa 20.6, serum lambda 516.7, Free kappa/lambda ratio0.04. Normal renal function and calcium. Lower ANC 600 and platelets 40,000 --04/10/2020: Started cycle 1 day 1 of weekly dexamethasone 20 mg IV (careful to watch blood sugars with diabetes and known hepatic dysfunction), decreased dose of bortezomib 0.7 mg/m? twice weekly for2 weeks on 1 week off (due to known liver disease and thrombocytopenia), and daratumumab 8mg/kg D1,D2 IV first week,then 16 mg/kg IV weekly and we may consider Revlimid as a 4th medication if needed (deferred for worsening neutropenia and thrombocytopenia--I am reluctant to add this therapy initially). --She has baseline cirrhosis with chronic thrombocytopenia and I am attempting to treat her with the least myelosuppressive regimen after 2 month deferral of therapy due to COVID-19 pandemic noted above. Patient does not have any currentsigns or symptoms of infection. On Acyclovir 400mg bid for VZV prophylaxis. --We requested prior liver biopsy from [facility] for review of the extentof her known liver dysfunction. It is doubtful she will be a high-dose chemotherapy/peripheral blood stem cell transplant candidate given her history of cirrhosis and chronic cytopenias. --04/19/2020 toxicity follow-up: Other than daratumumab reaction with cycle 1 day1 and hyperglycemiasecondary to dexamethasone, she has not had any other new toxicities of therapy thrombocytopenia remains in the 40,000 range without bleeding and we will continue treating with 50% dose Velcade as long as she doesnot have worsening hepatic function, thrombocytopenia, or neuropathy. I am sending herto diabetes management clinic for her hyperglycemia to adjust her insulin regimen (patient has previously discussed this with her primary physician who agrees). --05/21/2020: Tolerating weekly daratumumab, bortezomib, dexamethasone well. Diabetes management improving. Thrombocytopenia stable in 50,000 range without bleeding. --05/03/2020: Myeloma labs with no serum M-spike (not performed), + urine M spike now resolved. Immunofixation IgA lambda specificity. IgA normal 112, Serum kappa 7.8, serum lambda 41.3, Free kappa/lambda ratio 0.19 (improved). Normal renal function and calcium. Mildly improved ANC 900 and platelets 54,000 --Restaging myeloma labs (CBC, CMP, SPEP and UPEP with immunofixation, serum kappa/lambda light chain analysis, and quantitative immunoglobulins) ordered in 1 month and I will follow-up with her in 5-6 weeks for toxicity review. --06/18/2020: No new symptoms on weekly daratumumab, bortezomib, dexamethasone after dose reductionsof bortezomib for cytopenias and neuropathy. Myeloma labsnow show lower IgA 72. Now M-spike IgG kappa after Daratumumab--previously IgA lambda. Lambda light chain has decreased from 516 to 41.3 to now 18.5 with normalization of K/L ratio. Continue followup myeloma labs in 6 weeks, visit in8 weeks. Leukopenia and thrombocytopenia relatively stable on current therapy. This is a moderate complexity visit over 30 minutes for review of toxicities anddiabetes management. I previously spoke with Dr. Benavidez regarding treatment options and coordinated [facility] hematology tumor board presentation. 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 I previously reviewed her outpatient records from [facility], including review of notes, laboratories, and prior bone marrow biopsy 13 years ago. 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 Most recent platelet count is relatively stable at 54,000 but no clinical bleeding. She waspreviously referred to weight reduction clinic and may have slow improvement of steatohepatitis with lifestyle modification. Unless she has active bleeding or planned surgery, we will continue observation during treatment of active myelomato commence next month as noted above. --Agree with recommendation for EGD surveillance for varices (last was 09/2018--negative). This will be deferred during current COVID-19 epidemic. --Prior vitamin B12 and folic acid are normal, for known history of neuropathy. As noted above, I reviewed the negative M spike on serum protein electrophoresiswith immunofixation, but positive for Bence Murray protein on urine protein electrophoresis. Her Quantitative immunoglobulins IgG, IgA, and I gM were all within normal limits, however her serum kappa lambda light chain analysis showeda predominance of lambda light chains. --Previous labs for lupus anticoagulant with DRVVT, hexagonal phase phospholipid, anti-cardiolipin IgG and IgA, and beta 2 glycoprotein IgG and IgA were within normal limits. --Evaluated in ED November 2019 for epistaxis which resolved. Platelet count wasstable at 12/28/2019 follow-up. She continues surveillance with liver clinic at [facility] and I will continue to follow her every 6 months, sooner if newbleeding issues arise. --04/02/2020: We reviewed informed consent for Daratumumab/Velcade/Dexamethasone for active myeloma therapy. I requested prior liver biopsy results and notes from liver clinic at [facility]. Platelet count in 40,000 range but patient has had no active bleeding following infusion port placement 03/22/2020. --06/18/2020: Cycle 4 week 1 toxicity check with stable thrombocytopenia 40- 50,000 range with no bleeding. We will continue current dosing with Velcade 0.7mg/m2 sq (now once weekly), dexamethasone 20 mg weekly, and full dose daratumumab with close follow-up of liver function and platelet counts. 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 She wasreferred to Weight Management Clinic to attempt weight reduction through diet and exercise that may prevent further fatty infiltration that may further impairher liver function. [facility] hepatology discussed liver transplant but sheis likely no longer a candidate for this given active myeloma. We chose least hepatotoxic regimen for treatment of her active myeloma with 50% dose reduction of Velcade. Liver function remained stable since start of therapy 04/10/2020. --Requested prior liver biopsy and [facility] liver clinic records. (4) Neutropenia, unspecified Qualifiers: Neutropenia type: unspecified Qualified Code(s): D70.9 - Neutropenia, unspecified Previous worsening neutropenia without infection (current WBC 2000, ANC 600)--thought to be relatedto new diagnosis of active myeloma and no nutritional deficiency. Treating with less myelosuppressive regimen (Velcade rather than Revlimid) for myeloma. Of note no dysplastic changes were noted on bone marrow biopsy. Current white blood cell count was stable with absolute neutrophil count had improved to 900-1400. We will continue to follow closely on current therapy and continue acyclovir prophylaxis. (5) Diabetes mellitus Qualifiers: Diabetes mellitus type: type 2 Diabetes mellitus complication status: without complication Suboptimal diabetes control with recent Hemoglobin A1c 8.4--notes recent adjustment in her diabetesregimen by her primary physician. --04/19/2020 follow-up: She notes that since starting weekly dexamethasone therapy at 20mg dose blood sugars were as high as 400. She agreed to consultation with diabetes management clinic and likely requires supplemental insulin doses on steroid days. --Continue followup in diabetes management clinic. (6) Obesity Qualifiers: Body mass index: BMI 40.0-44.9 KAPADIA--continue f/u in weight reduction clinic. Defer to PCM. (7) Cancer-related pain Improved symptoms after palliative radiation to bilateral hips--one dose 02/07/2020. Will continue tofollow on myeloma chemotherapy. - Chemo Plan Chemo Plan (Dose, Rate, Freq): Palliative radiation to 02/07/2020, deferred active therapy for myeloma for 8 weeks due to current COVID-19 epidemic. Discussed at Malignant Hematology Tumor Board early March to determine optimal regimen given her comorbidities. --04/10/2020: cycle 1, day 1 weekly dexamethasone 20 mg IV (careful to watch bloodsugars with diabetes and known hepatic dysfunction), decreased dose of bortezomib 0.7 mg/m? twice weekly for 2 weeks on1 week off (decreased to once weekly after first cycle due to known liver disease and thrombocytopenia), and daratumumab 8mg/kg D1,D2 IV first week, then 16 mg/kg IV weekly Goal of Treatment: Palliative - Time with Patient Total Time Spent with Patient: 30 min Coordination of Care & Counseling Time: Greater than 50% of time spent with patient was for coordination of care (as documented) and [id number] counseling of patient and/or family. Dictated By: Fabiola Marinelli MD DD/ [id number] Signed By: <Electronically signed by MD Fabiola Marinelli> 06/19/20 [address] [facility] Work Phone: [phone]) 839-905007-21-2020 Progress note Author Fabiola Marinelli [facility] May 22, 2020 9:32pmNote Date/TimeJuly 2019 2:08pm[facility] [place] [address] Hem/Onc Follow Up Note - OP Signed Patient: Mojgan Pérez MR#: [id number] : 1955 Acct:[id number] Age/Sex: 64 / F Type: REG RCR Copies to: MD Yinka Downey MD~ Subjective Date/Time of Service: Date of Service: 05/21/2020 Time of Service: 14:07 Chief Complaint: Patient is here for follow up before treatment tomorrow, patient complains of new left neck pain. Patient has also seen diabetes management since last visit. HPI: 05/21/2020: Mojgan is here for cycle 2 week 4 daratumumab 16 mg/kg weekly, Velcade 0.7 mg/m? now sqonce weekly for every 5-week cycle (35 days), and dexamethasone 20 mg weekly. Tolerating well with stable leukopenia and thrombocytopenia. No significant neuropathy. Noted to have improvement in lambda light chains. No further daratumumab infusion reactions. No infections, stableconstipation, pain control improved. No other complaints. Continue monthly /[facility] myeloma labs. --Diabetes management--added insulin on dexamethasone days. Hyperglycemia improving. 04/19/2020: Mojgan is here for cycle 1 week 2 daratumumab 16 mg/kg weekly, Velcade 0.7 mg/m? twice weekly for first 2 weeks of every 3-week cycle, and dexamethasone 20 mg weekly. She did have an infusion reaction with first daratumumab with dyspnea and flushing but this improved after first dose and she has not had recurrent infusion reactions. We have continued Velcade despite platelet counts inthe 40,000 range without bleeding as we know that her baseline platelet counts remain in this rangeand she has not had any significant change from her baseline. Dexamethasone has caused hyperglycemia with blood sugars up to 400 and we are referring to diabetes management clinic. Otherwise she denies any significant nausea, emesis, fever, chills, night sweats, constipation, diarrhea, rash, mouth sores, or alopecia. She has not hadany change of baseline neuropathy. Liver function tests remain stable. She notes that her hip pain is well controlled since prior palliative radiation and she saw radiation oncology earlier this week with no new recommendations. I will send her myeloma labs including serum and urine protein electrophoresis, quantitative immunoglobulins, and serum kappa/lambda light chains in 2 weeks andfollow-up with her in 3 weeks. She may be seen sooner if new issues arise. 04/02/2020: Mojgan presents [facility] by interventional radiologydue to platelet count 40,000--she had increased bruising at site post procedure, but this has completely resolved. Her hip painis well controlled since completion of palliative radiation and no new areas of pain. She has previously reviewed information regarding Daratumumab (first dosesplit 8mg/kg IV D1,D2, then if well tolerated 16mg/kg IV weekly), Velcade at about 50% dose (for liver dysfunction) 0.7mg/m2 D1,D4,D8, D11, and [id number] IV weekly--repeat for every 3 week cycles 1st 3 cycles. She will take chemo class and likely start therapy within 2 weeks with toxicity visit in 3 weeks. Today we reviewed chemotherapy counseling for Daratumumab, Velcade, and Dexamethasone. Common toxicities were reviewed to include infusion reaction including rash/dyspnea/wheezing, myelosuppression, fatigue, nausea, vomiting, constipation, diarrhea, mouth sores, and alopecia. Other toxicities may in cludepneumonitis, neurologic, thromboembolism, hyperglycemia, hepatic and renal toxicities. The patient signed informed consent and will follow-up as directed. 01/18/2020 (phone followup)--The patient's son was available by phone and her daughter was contactedin a separate phone call as patient presented unaccompanied due to COVID-19 precautions in our clinic during the current epidemic. Bone marrow biopsy results were reviewed as follows from procedure pe rformed 01/26/2020: --Bone marrow biopsy was suboptimal for evaluation. --Increased lambda light chain restricted monoclonal plasma cells (1.9% by flow cytometry, approximately 6% and aspirate count, but 50% by immunohistochemical stains [id number]). Sideroblastic iron present, negative for ring sideroblasts. Peripheral blood smear with mild red blood cell anisocytosis and polychromasia, leukopenia with absolute neutropenia (1000) and thrombocytopenia (54,000) consistent with prior baseline. Note: I discussed the results with Dr. Crook 01/26/2020. Preliminary findings were also discussed with Dr. Cummings 01/27/2020. Morphologic findings, immunohistochemical stains, flow cytometry, and ancillary studies may under represent the extent and severity of disease. The results of FISH myeloma panelwith prognostic markers and cytogenetic analysis are pending. --Given the patient's hip pain and presence of lytic lesions, she meets clinicalcriteria for activemyeloma. Given her hip pain and lytic lesions in weightbearing areas she was offered radiation therapy. She had a limited course ofhypofractionated palliative therapy to bilateral proximal femurs 02/07/[address] Ahn[address] We discussed that given the COVID-19 epidemic and absence of othersignificant changes other than bony lesions (normal renal function, normal calcium, stable cytopenias), I would defer active therapy for myeloma for 4 to 6 weeks. Since she has significant history ofliver disease I will discuss her case with Dr. Piter Benavidez at [facility] malignant hematology for optimal regimen. The patient is not a transplant candidate given her nonalcoholic steatohepatitis and chronic thrombocytopenia but may be a candidate for either doublet therapy (Revlimid/dexamethasone) or triplet therapy with either Velcade/Revlimid/dexamethasone or daratumumab/Revlimid/dexamethasone. --02/03/2020: Mojgan presented unaccompanied for follow-up of bone marrow aspiration and biopsy performed by Dr. 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 The patient had been noting increased left hip pain over the past several months andplain films of the pelvis and bilateral femurs did show subtle lucencies in the bilateral proximal femurs corresponding to PET/CT findings but no other additional sclerotic lesions identified. No pathologic fractures were seen. --03/05/2020: Mojgan notes improvement of bilateral hip pain since radiation. No other changes in medical history in the past month--no infections, normal renal function, no hypercalcemia. Stable platelet counts without bleeding. Shewas given written literature regarding Dexamethasone, Velcade (thatwould be dose reduced to 0.7mg/m2 twice weekly), weekly Daratumumab and Revlimid, but I will defer decision of which regimen to use until discussion in malignant hematology tumor board. Also referring for infusion port placement prior to initiating therapy. Sign informed consent prior to initiating therapy. --Discussed with Dr. Benavidez who favors Daratumumab combination--will request prior liver biopsy and records from [facility] liver clinic. The patient and her son (by telephone) expressed understanding and will follow- up as directed in 2 weeks for consent and likely start of therapy. This is a 64-year-old lady on chronic disability has a history of arthritis, diabetes mellitus, hypertension, COPD, GERD, and fibromyalgia [facility]. She states that she was followed with Dr. Kumari prior to his senior care and was told that she had an elevated protein level as well as thrombocytopenia but never had clinical bleeding. She is 4 para4 without complicationsand was never told that she was thrombocytopenic while . She is had multiple prior surgicalprocedures without any clinical bleeding. She had been recommended for a pain procedure with Dr. Wilson but he declined to do the procedure because her platelet count was less than 100,000. For this reason she received 2 platelet transfusions, with little improvement of her platelet count and her second transfusion resulted in throat tightening due to allergy to platelets . She has never beentreated with steroids and has never been told that she has immune thrombocytopenia. She has mild leukopenia with relative neutropenia, absolute neutrophil count of 400-800 and mild lymphocytosis. Hemoglobin is normal. She has not had any bright red blood per rectum or epistaxis. She has no history ofbleeding within the family however does have a mother and sister diagnosed with colon cancer, a brother diagnosed with lung cancer, and another sister diagnosedwith breast cancer. She had prior pain in the right hand mainly at the first MCP joint with some associated swelling and right foot pain and was evaluated by podiatry. She was told that her blood tests were negative forgout. She had screening with MALLORY, CCP, and rheumatoid factor all of which were negative. She says that she previously saw Dr. Petersen for cirrhosis but did not know of any specific therapy. We reviewed these findings from her liver ultrasound ordered by Dr. Benavidez Summer 2016. Initial consultation with me March 16, 2017. --The patient has been followed by me for some time for diagnosis of smoldering myeloma with a prior bone marrow biopsy May 2017 showing 15% plasma cells but the patient remained asymptomatic without bone pain or other CRAB criteria for therapy. She is also noted to have an ascending aortic aneurysm and has chronicliver disease with cirrhosis secondary to nonalcoholic steatohepatitis. She haschronic thrombocytopenia without bleeding ranging from 50-100,000 this is felt to be due to sequestration from her nonalcoholic steatohepatitis. She was previously on a liver transplant list but was recently notified that she is no longer a candidate for liver transplant. She has had chronic pain from f ibromyalgia but noted increasing bilateral hip and upper thigh pain over the last 6 months. She also is followed for EGD/colonoscopy with last documented procedure 09/21/2018: 1. Normal EGD, 2. Mild sigmoid diverticulosis, 3. Internal hemorrhoids, grade 2, 4. Anal fissure with active bleeding cauterized by bipolar cautery Bone osseous survey in June 2019 showed osteopenia and degenerative changes but no lytic or blastic lesion. Patient had an F-18 PET scan 01/02/2020 which showed multiple areas of involvementof bones with increased SUV activity. She was contacted with these results by phone and I recommended bone marrow aspirate and biopsy for assessment and analysis. Her prior labs were reviewed. Her SPEP does not show anymonoclonal gammopathy. On VAHID there appears to be a trace of monoclonal gammopathy. Free light chain ratio is less than 100. There is no evidence of renal sufficiency. Patient is not anemic. She doeshave some abnormal areas on bone scan. - Summary of Therapies Summary of Therapies: 1. 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 2. She underwent a single dose of palliative radiation therapy to bilateral hips, receiving 800 cGyto right and left hip in 1 fraction in separate vaz (with a single isocenter). The treatments were given with AP/PA vaz [id number] MV photons and MLC blocks. 3. Deferred active therapy for myeloma 2 months given COVID-19 epidemic with increased risk of myelosuppression and viral transmission of contacts. --Follow-up 03/05/2020 I discussed her case with Dr. Piter Benavidez at malignant hematology. --Given her significant hepatic dysfunction, I presented her case at malignant hematology tumor board to discuss optimal therapy. 4. Cycle 1 day 1 04/10/2020: Dose reduced Velcade 0.7 mg/m? twice weekly (day 1,day 4, day 8, day 11)every 3 weeks with dexamethasone 20 mg weekly and daratumumab 16 mg/kg weekly of each 21-day cycle.After first week, Velcade decreased to 0.7mg sq weekly due to thrombocytopenia. --We will need to watch liver function, platelet count, and neuropathy closely on Velcade. ROS Details: All systems reviewed & no additional complaints except as documented Subjective/ROS - Narrative: Constitutional: No Chills, No Diaphoresis, + Fatigue, No Fever, No Malaise, No Night Sweats, No Weakness, No Weight Gain, No Weight Loss Gastrointestinal: No Abdominal Pain, No Black Stool, No Bloating, No Bloody Stool, No Constipation,No Diarrhea, No Dysphagia, No Hematemesis, No Nausea, NoPostprandial Pain, No Rectal Bleeding, No Rectal Pain, No Vomiting, Other (chronic gastroesophageal reflux stable) --No jaundice or ascites but patient has longstanding nonalcoholic steatohepatitis with cirrhosis, previously followed by [facility] gastroenterology. Cardiovascular: No Chest Pain, No Edema, No Palpitations, No Syncope Genitourinary: No Discharge, No Dysuria, No Flank Pain, Frequency (chronic andunchanged), No Hematuria, No Incontinence, No Nocturia, No Urgency, No Urinary Retention Musculoskeletal: S/p right chest infusion port placement. 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 HEENT: No Blurred Vision, No Discharge, No Ear Pain, No Epistaxis, No Rhinorrhea, No Sore Throat--patient was seen in emergency department November 2019 with persistent epistaxis. She was treated withnasal clip and packing andwas advised to continue Afrin. No recurrent bleeding. Respiratory: No Cough, No Hemoptysis, + Shortness of Breath (chronic and unchanged due to COPD), NoSputum, No Wheezing--shortness of breath with daratumumab reaction dose 1 04/10/2020 (given a split dose over 2 days). No recurrent reaction since first dose. Neurological: No Dizziness, + stable Numbness/Tingling (reports long-standing bilateral foot numbness--unchanged since starting low-dose Velcade 04/10/2020), NoPre-existing Deficit (no history of stroke or seizure), intermittent headache Hematologic/Lymphatic: Positive for bleeding Easily due to known thrombocytopenia from sequestration, Bruises Easily, No Enlarged Lymph Nodes, Other (reports allergy to prior platelet transfusion) Endocrine: Excessive Sweating (hot flashes, postmenopausal) Flushing, No Intolerance to Cold, Intolerance to Heat Psychiatric: No Depressed Mood, No Insomnia Integumentary: No Jaundice, No Lesions, No Rash Allergic/Immunology: No Pruritus PMFSH - History Attestation statement: The following information was validated with the patient. Source: Old Records Reviewed - Medical History Medical History: Medical History (Last Reviewed 05/22/20 @ 21:18 by Fabiola Marinelli MD) Aortic aneurysm COPD (chronic obstructive pulmonary disease) Diabetes Fibromyalgia GERD (gastroesophageal reflux disease) Iron deficiency Neutropenia Smoldering multiple myeloma (SMM) Smoldering myeloma Temporary low platelet count - Surgical History Surgical History: Surgical History (Last Reviewed 05/22/20 @ 21:18 by Fabiola Marinelli MD) H/O: hysterectomy History of appendectomy History of cholecystectomy - Social History Smoking Status: Former smoker Tobacco Type: cigarettes Substance Use Type: None Social History Comments: Lives with son a [facility] Home Medications & Allergies Allergies latex Allergy (Verified 04/18/19 11:57) Unknown Reaction moxifloxacin [From Avelox] Allergy (Verified 04/18/19 11:57) Hives Quinolones Allergy (Verified 04/18/19 11:57) Unknown Reaction tetracycline Allergy (Verified 04/18/19 11:57) Unknown Reaction Home Medications carvedilol 12.5 mg PO BID 11/20/17 [History Confirmed 05/21/20] duloxetine 60 mg PO DAILY 11/20/17 [History Confirmed 05/21/20] insulin detemir U-100 22 units SUB-Q QHS 11/20/17 [History Confirmed 05/21/20] oxycodone 10 mg PO TID PRN 11/20/17 [History Confirmed 05/21/20] albuterol sulfate 2 puff INHALATION Q6H PRN 11/24/17 [History Confirmed 05/21/20] fluticasone propion-salmeterol [Advair Diskus] 1 inh INHALATION Q12H PRN 11/24/17 [History Confirmed 05/21/20] omeprazole magnesium [Prilosec OTC] 40 mg PO DAILY 11/24/17 [History Confirmed 05/21/20] cyanocobalamin (vitamin B-12) 1,000 mcg PO DAILY 09/15/18 [History Confirmed 05/21/20] cholecalciferol (vitamin D3) [Vitamin D3] 1,000 unit PO DAILY 04/13/19 [History Confirmed 05/21/20] metformin 500 mg PO BID 03/05/20 [History Confirmed 05/21/20] acyclovir 400 mg PO BID 90 Days #180 tab 04/02/20 [Rx Confirmed 05/21/20] dexamethasone 20 mg PO ONCE 90 Days #60 tab 04/02/20 [Rx Confirmed 05/21/20] ondansetron HCl [Zofran] 8 mg PO TID PRN #30 tab 04/02/20 [Rx Confirmed 05/21/20] diazepam [Valium] 5 mg PO DIRECTED 1 Days #2 tab 05/21/20 [Rx] insulin NPH isoph U-100 human [Novolin N NPH U-100 Insulin] 20 unit SUBCUT DIRECTED 05/21/20 [History Confirmed 05/21/20] Objective - Height/Weight Height/Weight: Height 5 ft 2.99 in Weight 107.048 kg BSA for Today's Weight 2.18 - Vital Signs Vital Signs: 05/21/20 13:54 Temperature 98.8 F Pulse Rate [Left Brachial] 67 Respiratory Rate 18 Blood Pressure [Left Arm] 119/70 02 Sat by Pulse Oximetry 97 - Pain Bilateral Leg Pain Intensity: 3 Bilateral Shoulder Pain Intensity: 6 Generalized Pain Intensity: 3 Bilateral Hip Pain Intensity: 5 Left Hip Pain Intensity: 4 Lower Back Pain Intensity: 7 Left Neck Pain Intensity: 4 - Emotional Needs Assessment Emotional Needs Assessment: Emotional Needs Identified? No Distress Screening Total 0 - ECOG Performance Status ECOG Score: 1 Physical Exam Narrative: Patient is alert and oriented x3. HEAD / FACE: Normocephalic. No tenderness to palpation over scalp, no sinus tenderness to palpation. EYES: Pupils are equal and reactive to light. Conjunctivae and lids are benign in appearance. Ocular movement intact. EARS: Hearing grossly intact. NOSE / MOUTH / THROAT: Nose, mouth, tongue and oropharynx are benign in appearance. No signs of inflammation. NECK / THYROID: Neck is supple. Thyroid is symmetrical, without thyromegaly, masses or palpable nodules. LYMPHATIC: No palpable cervical, supraclavicular, axillary, or inguinal adenopathy. RESPIRATORY: Normal inspection. Lungs clear to auscultation and percussion. No wheezing, rales, rhonchi or rubs. Normal effort. Right chest wall infusion portwithout erythema. CARDIOVASCULAR: Regular rate and rhythm. No murmurs, gallops, or rubs. VASCULAR: Carotid, radial, femoral and pedal pulses present bilaterally. No bruits. ABDOMEN: Bowel sounds normoactive. Soft, nontender and non-distended. No hepatosplenomegaly. No masses. GENITOURINARY: No CVA tenderness. No suprapubic fullness or tenderness. No groinadenopathy. No evidence of hernias. INTEGUMENTARY: The skin is unremarkable. No rashes. No suspicious lesions. No bruising or petechiaenoted. BACK / SPINE: The back is nontender to percussion over vertebral bodies or SI joints. No step off deformity. MUSCULOSKELETAL: Normal musculature, no joint deformities or abnormalities, normal range of motion for all four extremities. EXTREMITIES: No edema, cyanosis or clubbing. No Destini sign. NEUROLOGICAL: Alert and oriented. Cranial nerves intact. No gross motor or sensory deficits, patient ambulates unassisted. PSYCHIATRIC: No anxiety or evidence of depression. Results - Labs Labs: Diagram of Most Recent CBC and CMP 05/21/20 13:10 05/21/20 13:10 Labs - Last 7 Days 05/21/20 13:10: PHA Creatinine Clear [id number], Sodium 135 L, Potassium 3.6, Chloride 102, Carbon Dioxide 25.7, BUN 14, Creatinine 0.53, Est GFR ( Amer) > 60, Est GFR (Non-Af Amer) > 60, Glucose 221 H, Calcium 8.4, Total Bilirubin 0.8, AST 26, ALT 27, Alkaline Phosphatase 76, Total Protein 5.2 L, Albumin 2.7 L, Globulin 2.5, Albumin/Globulin Ratio 1.1 05/21/20 13:10: WBC 2.4 L, Corrected WBC 2.4 L, RBC 3.42 L, Hgb 10.1 L, Hct 30.6L, MCV 89.5, MCH 29.6, MCHC 33.0, RDW 18.4 H, Plt Count 54 L, MPV 8.6, NucleatedRBC % (auto) 0.3 05/15/20 08:10: PHA Creatinine Clear [id number], Sodium 137, Potassium 3.6, Chloride 103, Carbon Dioxide 25.9, BUN 9, Creatinine 0.57, Est GFR ( Amer) > 60, Est GFR (Non-Af Amer) > 60, Glucose 211 H, Calcium 8.5, Total Bilirubin 0.9, AST 29, ALT 28, Alkaline Phosphatase 79, Total Protein 5.0 L, Albumin 2.8 L, Globulin 2.2, Albumin/Globulin Ratio 1.3 05/15/20 08:10: WBC 2.6 L, Corrected WBC 2.6 L, RBC 3.46 L, Hgb 10.4 L, Hct 30.8L, MCV 89.0, MCH 29.9, MCHC 33.6, RDW 18.4 H, Plt Count 50 L, MPV 7.8, Neut % (Auto) 36.5, Lymph % (Auto) 48.8, Hodgeman % (Auto) 11.7, Eos % (Auto) 2.9, Baso % (Auto) 0.1, Neut # (Auto) 1.0 L, Lymph # (Auto) 1.3, Hodgeman # (Auto) 0.3, Eos # (Auto) 0.1, Baso # (Auto) 0.0, Nucleated RBC % (auto) 0.1 - Impressions No new imaging for review. Assessment and Plan (1) Multiple myeloma Qualifiers: Multiple myeloma remission status: not in remission Qualified Code(s): C90.00 - Multiple myeloma not having achieved remission Mojgan 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 She has high risk cytogenetics and I [facility]. Her persistent thrombocytopenia made her ineligible for any clinical trials, and preventedher from receiving local pain procedures given her chronic low back pain. --05/2017 PET/CT images and reports performed for staging to exclude bone involvement with myeloma. 2 indeterminate areas of uptake thought to be degenerative arthritis vs early bone findings of myeloma (right parietooccipitalarea and upper sternum). She has remained asymptomatic [...] showed no lytic lesions and she has stableshoulder, hand, and right SI joint pain (although likely due to fibromyalgia. --Prior osseous survey 07/01/2019 showed osteopenia but no compression fractures or lytic lesions were identified. She had no significant change in myeloma labs(mild increase of urine M-spike, kappa/lambda ratio, and normal serum M- spike and quant immunoglobulins). Urine protein still undetectable, therefore will continue surveillance every 6 months with the same labs--no hypercalcemia, renaldysfunction (or proteinuria), anemia, or new bone symptoms. [...] proteins with urine M spike 43.1 but totalprotein 34.4, with no reported urine creatinine. --We deferred immunosuppressive chemotherapy for about 1 month due to control ofsymptoms after palliative radiation and concern of potential peak of COVID-19 inlate January early March. --She presented for follow-up 03/05/2020 and we discussed potential therapy options (with son available by phone). --I discussed her case with Dr. Piter Benavidez of malignant hematology, possibly presenting the patient in hematology tumor board at [facility]. --Infusion port placed 03/22/2020 at [facility] due to low platelets. No complications. --03/12/2020: Myeloma labs with no serum M-spike, + urine M spike 22.2mg/24h (14%). Immunofixation IgA lambda specificity. IgA normal 227, Serum kappa 20.6, serum lambda 516.7, Free kappa/lambda ratio0.04. Normal renal function and calcium. Lower ANC 600 and platelets 40,000 --04/10/2020: Started cycle 1 day 1 of weekly dexamethasone 20 mg IV (careful to watch blood sugars with diabetes and known hepatic dysfunction), decreased dose of bortezomib 0.7 mg/m? twice weekly for2 weeks on 1 week off (due to known liver disease and thrombocytopenia), and daratumumab 8mg/kg D1,D2 IV first week,then 16 mg/kg IV weekly and we may consider Revlimid as a 4th medication if needed (deferred for worsening neutropenia and thrombocytopenia--I am reluctant to add this therapy initially). --She has baseline cirrhosis with chronic thrombocytopenia and I am attempting to treat her with the least myelosuppressive regimen after 2 month deferral of therapy due to COVID-19 pandemic noted above. Patient does not have any currentsigns or symptoms of infection. On Acyclovir 400mg bid for VZV prophylaxis. --We requested prior liver biopsy from [facility] for review of the extentof her known liver dysfunction. It is doubtful she will be a high-dose chemotherapy/peripheral blood stem cell transplant candidate given her history of cirrhosis and chronic cytopenias. --04/19/2020 toxicity follow-up: Other than daratumumab reaction with cycle 1 day1 and hyperglycemiasecondary to dexamethasone, she has not had any other new toxicities of therapy thrombocytopenia remains in the 40,000 range without bleeding and we will continue treating with 50% dose Velcade as long as she doesnot have worsening hepatic function, thrombocytopenia, or neuropathy. I am sending herto diabetes management clinic for her hyperglycemia to adjust her insulin regimen (patient has previously discussed this with her primary physician who agrees). --05/21/2020: Tolerating weekly daratumumab, bortezomib, dexamethasone well. Diabetes management improving. Thrombocytopenia stable in 50,000 range without bleeding. --05/03/2020: Myeloma labs with no serum M-spike (not performed), + urine M spike now resolved. Immunofixation IgA lambda specificity. IgA normal 112, Serum kappa 7.8, serum lambda 41.3, Free kappa/lambda ratio 0.19 (improved). Normal renal function and calcium. Mildly improved ANC 900 and platelets 54,000 --Restaging myeloma labs (CBC, CMP, SPEP and UPEP with immunofixation, serum kappa/lambda light chain analysis, and quantitative immunoglobulins) ordered in 1 month and I will follow-up with her in 5-6 weeks for toxicity review. This is a moderate complexity visit over 30 minutes for review of toxicities anddiabetes management. I previously spoke with Dr. Benavidez regarding treatment options [facility]. 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 I previously reviewed her outpatient records from [facility], including review of notes, laboratories, and prior bone marrow biopsy 13 years ago. 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 Most recent platelet count is relatively stable at 54,000 but no clinical bleeding. She was previously referred to weight reduction clinic and may have slow improvement of steatohepatitis with lifestyle modification. Unless she has active bleeding or planned surgery, we will continue observation during treatment of active myelomato commence next month as noted above. --Agree with recommendation for EGD surveillance for varices (last was 09/2018--negative). This will be deferred during current COVID-19 epidemic. --Prior vitamin B12 and folic acid are normal, for known history of neuropathy. As noted above, I reviewed the negative M spike on serum protein electrophoresiswith immunofixation, but positive for Bence Murray protein on urine protein electrophoresis. Her Quantitative immunoglobulins IgG, IgA, and I gM were all within normal limits, however her serum kappa lambda light chain analysis showeda predominance of lambda light chains. --Previous labs for lupus anticoagulant with DRVVT, hexagonal phase phospholipid, anti-cardiolipin IgG and IgA, and beta 2 glycoprotein IgG and IgA were within normal limits. --Evaluated in ED November 2019 for epistaxis which resolved. Platelet count wasstable at 12/28/2019 follow-up. She continues surveillance with liver clinic at [facility] and I will continue to follow her every 6 months, sooner if newbleeding issues arise. --04/02/2020: We reviewed informed consent for Daratumumab/Velcade/Dexamethasone for active myeloma therapy. I requested prior liver biopsy results and notes from liver clinic at [facility]. Platelet count in 40,000 range but patient has had no active bleeding following infusion port placement 03/22/2020. --05/21/2020: Cycle 2 week 4 toxicity check with stable thrombocytopenia 40- 50,000 range with no bleeding. We will continue current dosing with 50% Velcade (now once weekly), dexamethasone 20 mg weekly, and full dose daratumumab with close follow-up of liver function and platelet counts. 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 She wasreferred to Weight Management Clinic to attempt weight reduction through diet and exercise that may prevent further fatty infiltration that may further impairher liver function. [facility] hepatology discussed liver transplant but sheis likely no longer a candidate for this given active myeloma. We chose least hepatotoxic regimen for treatment of her active myeloma with 50% dose reduction of Velcade. Liver function remained stable since start of therapy 04/10/2020. --Requested prior liver biopsy and [facility] liver clinic records. (4) Neutropenia, unspecified Qualifiers: Neutropenia type: unspecified Qualified Code(s): D70.9 - Neutropenia, unspecified Previous worsening neutropenia without infection (current WBC 2000, ANC 600)--thought to be relatedto new diagnosis of active myeloma and no nutritional deficiency. Treating with less myelosuppressive regimen (Velcade rather than Revlimid) for myeloma. Of note no dysplastic changes were noted on bone marrow biopsy. Current white blood cell count was stable with absolute neutrophil count had improved to 900-1400. We will continue to follow closely on current therapy and continue acyclovir prophylaxis. (5) Diabetes mellitus Qualifiers: Diabetes mellitus type: type 2 Diabetes mellitus complication status: without complication Suboptimal diabetes control with recent Hemoglobin A1c 8.4--notes recent adjustment in her diabetesregimen by her primary physician. --04/19/2020 follow-up: She notes that since starting weekly dexamethasone therapy at 20mg dose blood sugars were as high as 400. She agreed to consultation with diabetes management clinic and likely requires supplemental insulin doses on steroid days. --Improved diabetes management at chemotherapy toxicity followup visit 05/21/2020. (6) Obesity Qualifiers: Body mass index: BMI 40.0-44.9 KAPADIA--continue f/u in weight reduction clinic. Defer to PCM. (7) Cancer-related pain Improved symptoms after palliative radiation to bilateral hips--one dose 02/07/2020. Will continue tofollow on myeloma chemotherapy. - Chemo Plan Chemo Plan (Dose, Rate, Freq): Palliative radiation to 02/07/2020, deferred active therapy for myeloma for 8 weeks due to current COVID-19 epidemic. Discussed at Malignant Hematology Tumor Board early March to determine optimal regimen given her comorbidities. --04/10/2020: cycle 1, day 1 weekly dexamethasone 20 mg IV (careful to watch bloodsugars with diabetes and known hepatic dysfunction), decreased dose of bortezomib 0.7 mg/m? twice weekly for 2 weeks on1 week off (decreased to once weekly after first cycle due to known liver disease and thrombocytopenia), and daratumumab 8mg/kg D1,D2 IV first week, then 16 mg/kg IV weekly Goal of Treatment: Palliative - Time with Patient Total Time Spent with Patient: 30 min Coordination of Care & Counseling Time: Greater than 50% of time spent with patient was for coordination of care (as documented) and [id number] counseling of patient and/or family. Dictated By: Fabiola Marinelli MD DD/ [id number] Signed By: <Electronically signed by MD Fabiola Marinelli> 05/22/20 0817 [facility] Work Phone: [phone] Progress note Author Fabiola Marinelli [facility] April 19, 2020 12:38pmNote Date/TimeJun2019 8:37[facility] [place] [address] Hem/Onc Follow Up Note - OP Signed Patient: Mojgan Pérez MR#: [id number] : 1955 Acct:[id number] Age/Sex: 64 / F Type: REG RCR Copies to: MD Yinka Downey MD~ Subjective Date/Time of Service: Date of Service: 04/19/2020 Time of Service: 08:37 Chief Complaint: Patient is here for follow up before treatment tomorrow of Cycle 1 day 11 Jennifer/Velcade/Dex. Patient is doing well with no concerns. Patients glucose has increased with steroids. HPI: 04/19/2020: Mojgan is here for cycle 1 week 2 daratumumab 16 mg/kg weekly, Velcade 0.7 mg/m? twice weekly for first 2 weeks of every 3-week cycle, and dexamethasone 20 mg weekly. She did have an infusion reaction with first daratumumab with dyspnea and flushing but this improved after first dose and shehas not had recurrent infusion reactions. We have continued Velcade despite platelet counts in the 40,000 range without bleeding as we know that her baseline platelet counts remain in this range and she has not had any significant change from her baseline. Dexamethasone has caused hyperglycemiawith blood sugars up to 400 and we are referring to diabetes management clinic. Otherwise she denies any significant nausea, emesis, fever, chills, night sweats, constipation, diarrhea, rash, mouth sores, or alopecia. She has not hadany change of baseline neuropathy. Liver function tests remain stable. She notes that her hip pain is well controlled since prior palliative radiation and she saw radiation oncology earlier this week with no new recommendations. I will send her myeloma labs including serum and urine protein electrophoresis, quantitative immunoglobulins, and serum kappa/lambda light chains in 2 weeks andfollow-up with her in 3 weeks. She may be seen sooner if new issues arise. 04/02/2020: Mojgan presents [facility] by interventional radiologydue to platelet count 40,000--she had increased bruising at site post procedure, but this has completely resolved. Her hip painis well controlled since completion of palliative radiation and no new areas of pain. She has previously reviewed information regarding Daratumumab (first dosesplit 8mg/kg IV D1,D2, then if well tolerated 16mg/kg IV weekly), Velcade at about 50% dose (for liver dysfunction) 0.7mg/m2 D1,D4,D8, D11, and Dexamethasone 20mg IV weekly--repeat for every 3 week cycles 1st 3 cycles. She will take chemo class and likely start therapy within 2 weeks with toxicity visit in 3 weeks. Today we reviewed chemotherapy counseling for Daratumumab, Velcade, and Dexamethasone. Common toxicities were reviewed to include infusion reaction including rash/dyspnea/wheezing, myelosuppression, fatigue, nausea, vomiting, constipation, diarrhea, mouth sores, and alopecia. Other toxicities may in cludepneumonitis, neurologic, thromboembolism, hyperglycemia, hepatic and renal toxicities. The patient signed informed consent and will follow-up as directed. 01/18/2020 (phone followup)--The patient's son was available by phone and her daughter was contactedin a separate phone call as patient presented unaccompanied due to COVID-19 precautions in our clinic during the current epidemic. Bone marrow biopsy results were reviewed as follows from procedure pe rformed 01/26/2020: --Bone marrow biopsy was suboptimal for evaluation. --Increased lambda light chain restricted monoclonal plasma cells (1.9% by flow cytometry, approximately 6% and aspirate count, but 50% by immunohistochemical stains [id number]). Sideroblastic iron present, negative for ring sideroblasts. Peripheral blood smear with mild red blood cell anisocytosis and polychromasia, leukopenia with absolute neutropenia (1000) and thrombocytopenia (54,000) consistent with prior baseline. Note: I discussed the results with Dr. Crook 01/26/2020. Preliminary findings were also discussed with Dr. Cummings 01/27/2020. Morphologic findings, immunohistochemical stains, flow cytometry, and ancillary studies may under represent the extent and severity of disease. The results of FISH myeloma panelwith prognostic markers and cytogenetic analysis are pending. --Given the patient's hip pain and presence of lytic lesions, she meets clinicalcriteria for activemyeloma. Given her hip pain and lytic lesions in weightbearing areas she was offered radiation therapy. She had a limited courseof hypofractionated palliative therapy to bilateral proximal femurs [address] Ahn. We discussed that given the COVID-19 epidemic and absence of othersignificant changes other than bony lesions (normal renal function, normal calcium, stable cytopenias), I would defer active therapy for myeloma for 4 to 6 weeks. Since she has significant history ofliver disease I will discuss her case with Dr. Piter Benavidez at [facility] malignant hematology for optimal regimen. The patient is not a transplant candidate given her nonalcoholic steatohepatitis and chronic thrombocytopenia but may be a candidate for either doublet therapy (Revlimid/dexamethasone) or triplet therapy with either Velcade/Revlimid/dexamethasone or daratumumab/Revlimid/dexamethasone. --02/03/2020: Mojgan presented unaccompanied for follow-up of bone marrow aspiration and biopsy performed by Dr. 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 The patient had been noting increased left hip pain over the past several months andplain films of the pelvis and bilateral femurs did show subtle lucencies in the bilateral proximal femurs corresponding to PET/CT findings but no other additional sclerotic lesions identified. No pathologic fractures were seen. --03/05/2020: Mojgan notes improvement of bilateral hip pain since radiation. No other changes in medical history in the past month--no infections, normal renal function, no hypercalcemia. Stable platelet counts without bleeding. Shewas given written literature regarding Dexamethasone, Velcade (thatwould be dose reduced to 0.7mg/m2 twice weekly), weekly Daratumumab and Revlimid, but I will defer decision of which regimen to use until discussion in malignant hematology tumor board. Also referring for infusion port placement prior to initiating therapy. Sign informed consent prior to initiating therapy. --Discussed with Dr. Benavidez who favors Daratumumab combination--will request prior liver biopsy and records from [facility] liver clinic. The patient and her son (by telephone) expressed understanding and will follow- up as directed in 2 weeks for consent and likely start of therapy. This is a 64-year-old lady on chronic disability has a history of arthritis, diabetes mellitus, hypertension, COPD, GERD, and fibromyalgia [facility]. She states that she was followed with Dr. Kumari prior to his senior care and was told that she had an elevated protein level as well as thrombocytopenia but never had clinical bleeding. She is 4 para4 without complicationsand was never told that she was thrombocytopenic while . She is had multiple prior surgicalprocedures without any clinical bleeding. She had been recommended for a pain procedure with Dr. Wilson but he declined to do the procedure because her platelet count was less than 100,000. For this reason she received 2 platelet transfusions, with little improvement of her platelet count and her second transfusion resulted in throat tightening due to allergy to platelets . She has never beentreated with steroids and has never been told that she has immune thrombocytopenia. She has mild leukopenia with relative neutropenia, absolute neutrophil count of 400-800 and mild lymphocytosis. Hemoglobin is normal. She has not hadany bright red blood per rectum or epistaxis. She has no history of bleeding within the family however does have a mother and sister diagnosed with colon cancer, a brother diagnosed with lung cancer, and another sister diagnosed with breast cancer. She had prior pain in the right hand mainly at the first MCP joint with some associated swelling and right foot pain and was evaluated by podiatry. She was told that her blood tests were negative forgout. She had screening with MALLORY, CCP, and rheumatoid factor all of which were negative. She says that she previously saw Dr. Petersen for cirrhosis but did not know of any specific therapy. We reviewed these findings from her liver ultrasound ordered by Dr. Benavidez Summer 2016. Initial consultation with me March 16, 2017. --The patient has been followed by me for some time for diagnosis of smoldering myeloma with a prior bone marrow biopsy May 2017 showing 15% plasma cells but the patient remained asymptomatic without bone pain or other CRAB criteria for therapy. She is also noted to have an ascending aortic aneurysm and has chronicliver disease with cirrhosis secondary to nonalcoholic steatohepatitis. She haschronic thrombocytopenia without bleeding ranging from 50-100,000 this is felt to be due to sequestration from her nonalcoholic steatohepatitis. She was previously on a liver transplant list but was recently notified that she is no longer a candidate for liver transplant. She has had chronic pain from f ibromyalgia but noted increasing bilateral hip and upper thigh pain over the last 6 months. She also is followed for EGD/colonoscopy with last documented procedure 09/21/2018: 1. Normal EGD, 2. Mild sigmoid diverticulosis, 3. Internal hemorrhoids, grade 2, 4. Anal fissure with active bleeding cauterized by bipolar cautery Bone osseous survey in June 2019 showed osteopenia and degenerative changes but no lytic or blastic lesion. Patient had an F-18 PET scan 01/02/2020 which showed multiple areas of involvementof bones with increased SUV activity. She was contacted with these results by phone and I recommended bone marrow aspirate and biopsy for assessment and analysis. Her prior labs were reviewed. Her SPEP does not show anymonoclonal gammopathy. On VAHID there appears to be a trace of monoclonal gammopathy. Free light chain ratio is less than 100. There is no evidence of renal sufficiency. Patient is not anemic. She doeshave some abnormal areas on bone scan. - Summary of Therapies Summary of Therapies: 1. 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 2. She underwent a single dose of palliative radiation therapy to bilateral hips, receiving 800 cGyto right and left hip in 1 fraction in separate vaz (with a single isocenter). The treatments were given with AP/PA vaz [id number] MV photons and MLC blocks. 3. Deferred active therapy for myeloma 2 months given COVID-19 epidemic with increased risk of myelosuppression and viral transmission of contacts. --Follow-up 03/05/2020 I discussed her case with Dr. Piter Benavidez at malignant hematology. --Given her significant hepatic dysfunction, I presented her case at malignant hematology tumor board to discuss optimal therapy. 4. Cycle 1 day 1 04/10/2020: Dose reduced Velcade 0.7 mg/m? twice weekly (day 1,day 4, day 8, day 11)every 3 weeks with dexamethasone 20 mg weekly and daratumumab 16 mg/kg weekly of each 21-day cycle. --We will need to watch liver function, platelet count, and neuropathy closely on Velcade. ROS Details: All systems reviewed & no additional complaints except as documented Subjective/ROS - Narrative: Constitutional: No Chills, No Diaphoresis, + Fatigue, No Fever, No Malaise, No Night Sweats, No Weakness, No Weight Gain, No Weight Loss Gastrointestinal: No Abdominal Pain, No Black Stool, No Bloating, No Bloody Stool, No Constipation,No Diarrhea, No Dysphagia, No Hematemesis, No Nausea, NoPostprandial Pain, No Rectal Bleeding, No Rectal Pain, No Vomiting, Other (chronic gastroesophageal reflux stable) --No jaundice or ascites but patient has longstanding nonalcoholic steatohepatitis with cirrhosis, previously followed by [facility] gastroenterology. Cardiovascular: No Chest Pain, No Edema, No Palpitations, No Syncope Genitourinary: No Discharge, No Dysuria, No Flank Pain, Frequency (chronic andunchanged), No Hematuria, No Incontinence, No Nocturia, No Urgency, No Urinary Retention Musculoskeletal: S/p right chest infusion port placement--no hematoma. Improvement of prior bilateral hip/thigh pain since radiation--patient previously noted the pain was more pronounced over the last 6 months; positive for intermittent lumbar back pain (chronic with pain radiating everywhere per prior outpatient visits), No Chest Wall Tenderness, Improvement of prior Joint Pain, Muscle Stiffness, Myalgia (history of fibromyalgia), No Neck Pain (reportsknown cervical disc disease) --unremarkable skeletal survey June 2019, but evaluated with 01/02/2020: F-18 PET/CT showing progression of smoldering myeloma to active disease. HEENT: No Blurred Vision, No Discharge, No Ear Pain, No Epistaxis, No Rhinorrhea, No Sore Throat--patient was seen in emergency department November 2019 with persistent epistaxis. She was treated withnasal clip and packing andwas advised to continue Afrin. No recurrent bleeding. Respiratory: No Cough, No Hemoptysis, + Shortness of Breath (chronic and unchanged due to COPD), NoSputum, No Wheezing--shortness of breath with daratumumab reaction dose 1 04/10/2020 (given a split dose over 2 days). No recurrent reaction since first dose. Neurological: No Dizziness, + stable Numbness/Tingling (reports long-standing bilateral foot numbness--unchanged since starting low-dose Velcade 04/10/2020), NoPre-existing Deficit (no history of stroke or seizure), intermittent headache Hematologic/Lymphatic: Positive for bleeding Easily due to known thrombocytopenia from sequestration, Bruises Easily, No Enlarged Lymph Nodes, Other (reports allergy to prior platelet transfusion) Endocrine: Excessive Sweating (hot flashes, postmenopausal) Flushing, No Intolerance to Cold, Intolerance to Heat Psychiatric: No Depressed Mood, No Insomnia Integumentary: No Jaundice, No Lesions, No Rash Allergic/Immunology: No Pruritus PMFSH - History Attestation statement: The following information was validated with the patient. Source: Old Records Reviewed - Medical History Medical History: Medical History (Last Reviewed 04/19/20 @ 12:20 by Fabiola Marinelli MD) Aortic aneurysm COPD (chronic obstructive pulmonary disease) Diabetes Fibromyalgia GERD (gastroesophageal reflux disease) H/O: hysterectomy Iron deficiency Neutropenia Smoldering multiple myeloma (SMM) Smoldering myeloma Temporary low platelet count - Surgical History Surgical History: Surgical History (Last Reviewed 04/19/20 @ 12:20 by Fabiola Marinelli MD) History of appendectomy History of cholecystectomy - Social History Smoking Status: Former smoker Tobacco Type: cigarettes Substance Use Type: None Social History Comments: Lives with son a [facility] Home Medications & Allergies Allergies latex Allergy (Verified 04/18/19 11:57) Unknown Reaction moxifloxacin [From Avelox] Allergy (Verified 04/18/19 11:57) Hives Quinolones Allergy (Verified 04/18/19 11:57) Unknown Reaction tetracycline Allergy (Verified 04/18/19 11:57) Unknown Reaction Home Medications carvedilol 12.5 mg PO BID 11/20/17 [History Confirmed 04/19/20] duloxetine 60 mg PO DAILY 11/20/17 [History Confirmed 04/19/20] insulin detemir U-100 22 units SUB-Q QHS 11/20/17 [History Confirmed 04/19/20] oxycodone 10 mg PO TID PRN 11/20/17 [History Confirmed 04/19/20] albuterol sulfate 2 puff INHALATION Q6H PRN 11/24/17 [History Confirmed 04/19/20] fluticasone propion-salmeterol [Advair Diskus] 1 inh INHALATION Q12H PRN 11/24/17 [History Confirmed 04/19/20] omeprazole magnesium [Prilosec OTC] 40 mg PO DAILY 11/24/17 [History Confirmed 04/19/20] cyanocobalamin (vitamin B-12) 1,000 mcg PO DAILY 09/15/18 [History Confirmed 04/19/20] cholecalciferol (vitamin D3) [Vitamin D3] 1,000 unit PO DAILY 04/13/19 [History Confirmed 04/19/20] metformin 500 mg PO QPM 03/05/20 [History Confirmed 04/19/20] acyclovir 400 mg PO BID 90 Days #180 tab 04/02/20 [Rx Confirmed 04/19/20] dexamethasone 20 mg PO ONCE 90 Days #60 tab 04/02/20 [Rx Confirmed 04/19/20] ondansetron HCl [Zofran] 8 mg PO TID PRN #30 tab 04/02/20 [Rx Confirmed 04/19/20] Objective - Height/Weight Height/Weight: Height 5 ft 2.99 in Weight 107.955 kg BSA for Today's Weight 2.19 - Vital Signs Vital Signs: 04/19/20 08:32 Temperature 98.7 F Pulse Rate [Left Brachial] 78 Respiratory Rate 20 Blood Pressure [Left Arm] 148/80 H 02 Sat by Pulse Oximetry 96 - Pain Bilateral Leg Pain Intensity: 3 Bilateral Shoulder Pain Intensity: 6 Generalized Pain Intensity: 3 Bilateral Hip Pain Intensity: 5 Left Hip Pain Intensity: 4 Lower Back Pain Intensity: 7 - Emotional Needs Assessment Emotional Needs Assessment: Emotional Needs Identified? No Distress Screening Total 0 - ECOG Performance Status ECOG Score: 1 Physical Exam Narrative: Patient is alert and oriented x3. HEAD / FACE: Normocephalic. No tenderness to palpation over scalp, no sinus tenderness to palpation. EYES: Pupils are equal and reactive to light. Conjunctivae and lids are benign in appearance. Ocular movement intact. EARS: Hearing grossly intact. NOSE / MOUTH / THROAT: Nose, mouth, tongue and oropharynx are benign in appearance. No signs of inflammation. NECK / THYROID: Neck is supple. Thyroid is symmetrical, without thyromegaly, masses or palpable nodules. LYMPHATIC: No palpable cervical, supraclavicular, axillary, or inguinal adenopathy. RESPIRATORY: Normal inspection. Lungs clear to auscultation and percussion. No wheezing, rales, rhonchi or rubs. Normal effort. Right chest wall infusion portwithout ecchymosis. CARDIOVASCULAR: Regular rate and rhythm. No murmurs, gallops, or rubs. VASCULAR: Carotid, radial, femoral and pedal pulses present bilaterally. No bruits. ABDOMEN: Bowel sounds normoactive. Soft, nontender and non-distended. No hepatosplenomegaly. No masses. GENITOURINARY: No CVA tenderness. No suprapubic fullness or tenderness. No groinadenopathy. No evidence of hernias. INTEGUMENTARY: The skin is unremarkable. No rashes. No suspicious lesions. No bruising or petechiaenoted. BACK / SPINE: The back is nontender to percussion over vertebral bodies or SI joints. No step off deformity. MUSCULOSKELETAL: Normal musculature, no joint deformities or abnormalities, normal range of motion for all four extremities. EXTREMITIES: No edema, cyanosis or clubbing. No Destini sign. NEUROLOGICAL: Alert and oriented. Cranial nerves intact. No gross motor or sensory deficits, patient ambulates unassisted. PSYCHIATRIC: No anxiety or evidence of depression. Results - Labs Labs: Diagram of Most Recent CBC and CMP 04/17/20 08:14 04/17/20 08:14 Labs - Last 7 Days 04/17/20 08:14: PHA Creatinine Clear [id number], Sodium 137, Potassium 3.9, Chloride 103, Carbon Dioxide 26.8, BUN 12, Creatinine 0.52, Est GFR ( Amer) > 60, Est GFR (Non-Af Amer) > 60, Glucose 275 H, Calcium 8.9, Total Bilirubin 0.9, AST 29, ALT 26, Alkaline Phosphatase 86, Total Protein 5.3 L, Albumin 2.9 L, Globulin 2.4, Albumin/Globulin Ratio 1.2 04/17/20 08:14: WBC 2.6 L, Corrected WBC 2.6 L, RBC 3.63, Hgb 10.6 L, Hct 31.9 L, MCV 87.9, MCH 29.1, MCHC 33.1, RDW 19.1 H, Plt Count 43 L, MPV 8.4, Neut % (Auto) 53.0, Lymph % (Auto) 37.3, Hodgeman % (Auto) 5.4, Eos % (Auto) 4.2, Baso % (Auto) 0.1, Neut # (Auto) 1.4 L, Lymph # (Auto) 1.0, Hodgeman # (Auto) 0.1, Eos # (Auto) 0.1, Baso # (Auto) 0.0, Nucleated RBC % (auto) 0.0, Platelet Estimate DecreasedL, Plt Morphology Comment Normal, RBC Morphology N/A, Hypochromasia Slight, Anisocytosis Slight, Ovalocytes Slight Restaging myeloma labs will be scheduled in 2 weeks. - Impressions No new imaging for review. Assessment and Plan (1) Multiple myeloma Qualifiers: Multiple myeloma remission status: not in remission Qualified Code(s): C90.00 - Multiple myeloma not having achieved remission Mojgan 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 She has high risk cytogenetics and I [facility] Her persistent thrombocytopenia made her ineligible for any clinical trials, and preventedher from receiving local pain procedures given her chronic low back pain. --05/2017 PET/CT images and reports performed for staging to exclude bone involvement with myeloma. 2 indeterminate areas of uptake thought to be degenerative arthritis vs early bone findings of myeloma (right parietooccipital area and upper sternum). She has remained asymptomatic in these areas andwe arranged repeat PET/CT at 6 months with CBC, CMP, SPEP and UPEP with immunofixation, serum kappa/lambda light chain analysis, and quantitative immunoglobulins. --No lytic lesion seen on f/u PET/CT 11/2017 and all labs stable. Also had head CT to evaluate for mastoiditis in 03/2018 unremarkable. 05/2018 skeletal survey showed no lytic lesions and she has stableshoulder, hand, and right SI joint pain (although likely due to fibromyalgia. --Prior osseous survey 07/01/2019 showed osteopenia but no compression fractures or lytic lesions were identified. She had no significant change in myeloma labs(mild increase of urine M-spike, kappa/lambda ratio, and normal serum M- spike and quant immunoglobulins). Urine protein still undetectable, therefore will continue surveillance every 6 months with the same labs--no hypercalcemia, renaldysfunction (or proteinuria), anemia, or new bone symptoms. [...] proteins with urine M spike 43.1 but totalprotein 34.4, with no reported urine creatinine. --We deferred immunosuppressive chemotherapy for about 1 month due to control ofsymptoms after palliative radiation and concern of potential peak of COVID-19 inlate January early March. --She presented for follow-up 03/05/2020 and we discussed potential therapy options (with son available by phone). --I discussed her case with Dr. Piter Benavidez of malignant hematology, possibly presenting the patient in hematology tumor board at [facility]. --Infusion port placed 03/22/2020 at [facility] due to low platelets. No complications. --03/12/2020: Myeloma labs with no serum M-spike, + urine M spike 22.2mg/24h (14%). Immunofixation IgA lambda specificity. IgA normal 227, Serum kappa 20.6, serum lambda 516.7, Free kappa/lambda ratio0.04. Normal renal function and calcium. Lower ANC 600 and platelets 40,000 --04/10/2020: Started cycle 1 day 1 of weekly dexamethasone 20 mg IV (careful to watch blood sugars with diabetes and known hepatic dysfunction), decreased dose of bortezomib 0.7 mg/m? twice weekly for2 weeks on 1 week off (due to known liver disease and thrombocytopenia), and daratumumab 8mg/kg D1,D2 IV first week,then 16 mg/kg IV weekly and we may consider Revlimid as a 4th medication if needed (deferred for worsening neutropenia and thrombocytopenia--I am reluctant to add this therapy initially). --She has baseline cirrhosis with chronic thrombocytopenia and I am attempting to treat her with the least myelosuppressive regimen after 2 month deferral of therapy due to COVID-19 pandemic noted above. Patient does not have any currentsigns or symptoms of infection. On Acyclovir 400mg bid for VZV prophylaxis. --We requested prior liver biopsy from [facility] for review of the extentof her known liver dysfunction. It is doubtful she will be a high-dose chemotherapy/peripheral blood stem cell transplant candidate given her history of cirrhosis and chronic cytopenias. --04/19/2020 toxicity follow-up: Other than daratumumab reaction with cycle 1 day1 and hyperglycemiasecondary to dexamethasone, she has not had any other new toxicities of therapy thrombocytopenia remains in the 40,000 range without bleeding and we will continue treating with 50% dose Velcade as long as she doesnot have worsening hepatic function, thrombocytopenia, or neuropathy. I am sending herto diabetes management clinic for her hyperglycemia to adjust her insulin regimen (patient has previously discussed this with her primary physician who agrees). --Restaging myeloma labs (CBC, CMP, SPEP and UPEP with immunofixation, serum kappa/lambda light chain analysis, and quantitative immunoglobulins) ordered in 2 weeks and I will follow-up with her in 3weeks for toxicity review. This is a moderate complexity visit over 30 minutes for review of toxicities andcoordinating consultation with diabetes management clinic. I previously spoke with Dr. Benavidez regarding treatment options and coordinated [facility] malignant hematology tumor board presentation. 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 I previously reviewed her outpatient records from [facility] [place], including review of notes, laboratories, and prior bone marrow biopsy 13 years ago. 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 Most recent platelet count is relatively stable at 54,000 but no clinical bleeding. She waspreviously referred to weight reduction clinic and may have slow improvement of steatohepatitis with lifestyle modification. Unless she has active bleeding or planned surgery, we will continue observation during treatment of active myelomato commence next month as noted above. --Agree with recommendation for EGD surveillance for varices (last was 09/2018--negative). This will be deferred during current COVID-19 epidemic. --Prior vitamin B12 and folic acid are normal, for known history of neuropathy. As noted above, I reviewed the negative M spike on serum protein electrophoresiswith immunofixation, but positive for Bence Murray protein on urine protein electrophoresis. Her Quantitative immunoglobulins IgG, IgA, and I gM were all within normal limits, however her serum kappa lambda light chain analysis showeda predominance of lambda light chains. --Previous labs for lupus anticoagulant with DRVVT, hexagonal phase phospholipid, anti-cardiolipin IgG and IgA, and beta 2 glycoprotein IgG and IgA were within normal limits. --Evaluated in ED November 2019 for epistaxis which resolved. Platelet count wasstable at 12/28/2019 follow-up. She continues surveillance with liver clinic at [facility] and I will continue to follow her every 6 months, sooner if newbleeding issues arise. --04/02/2020: We reviewed informed consent for Daratumumab/Velcade/Dexamethasone for active myeloma therapy. I requested prior liver biopsy results and notes from liver clinic at [facility]. Platelet count in 40,000 range but patient has had no active bleeding following infusion port placement 03/22/2020. --04/19/2020: Cycle 1 day 11 toxicity check with stable thrombocytopenia 40- 50,000 range with no bleeding. We will continue current dosing with 50% Velcade, dexamethasone 20 mg weekly, and full dose daratumumab with close follow-up of liver function and platelet counts. 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 She wasreferred to Weight Management Clinic to attempt weight reduction through diet and exercise that may prevent further fatty infiltration that may further impairher liver function. [facility] hepatology discussed liver transplant but sheis likely no longer a candidate for this given active myeloma. We chose least hepatotoxic regimen for treatment of her active myeloma with 50% dose reduction of Velcade. Liver function remained stable since start of therapy 04/10/2020. --Requesting prior liver biopsy and [facility] liver clinic records. (4) Neutropenia, unspecified Qualifiers: Neutropenia type: unspecified Qualified Code(s): D70.9 - Neutropenia, unspecified Previous worsening neutropenia without infection (current WBC 2000, ANC 600)--thought to be relatedto new diagnosis of active myeloma and no nutritional deficiency. Treating with less myelosuppressive regimen (Velcade rather than Revlimid) for myeloma. Of note no dysplastic changes were noted on bone marrow biopsy. At 1 week follow-up her white blood cell count was stable but absolute neutrophilcount had improved to 1400. We will continue to follow closely on current therapy and continue acyclovir prophylaxis. (5) Diabetes mellitus Qualifiers: Diabetes mellitus type: type 2 Diabetes mellitus complication status: without complication Suboptimal diabetes control with recent Hemoglobin A1c 8.4--notes recent adjustment in her diabetesregimen by her primary physician. --04/19/2020 follow-up: She notes that since starting weekly dexamethasone therapy at 20mg dose blood sugars have been as high as 400. She agrees to consultation with diabetes management clinic and likely requires supplemental insulin doses on steroid days. Will readdress at next chemotherapy toxicity followup in about 3 weeks. (6) Obesity Qualifiers: Body mass index: BMI 40.0-44.9 KAPADIA--continue f/u in weight reduction clinic. Defer to PCM. (7) Cancer-related pain Improved symptoms after palliative radiation to bilateral hips--one dose 02/07/2020. Will continue tofollow on myeloma chemotherapy. - Chemo Plan Chemo Plan (Dose, Rate, Freq): Palliative radiation to 02/07/2020, deferred active therapy for myeloma for 8 weeks due to current COVID-19 epidemic. Discussed at Malignant Hematology Tumor Board early March to determine optimal regimen given her comorbidities. --04/10/2020: cycle 1, day 1 weekly dexamethasone 20 mg IV (careful to watch bloodsugars with diabetes and known hepatic dysfunction), decreased dose of bortezomib 0.7 mg/m? twice weekly for 2 weeks on1 week off (due to known liver disease and thrombocytopenia), and daratumumab 8mg/kg D1,D2 IV firstweek, then 16 mg/kg IV weekly Goal of Treatment: Palliative - Time with Patient Total Time Spent with Patient: 30 min Coordination of Care & Counseling Time: Greater than 50% of time spent with patient was for coordination of care (as documented) and [id number] counseling of patient and/or family. Dictated By: Fabiola Marinelli MD DD/ [id number] Signed By: <Electronically signed by MD Fabiola Marinelli> 04/19/20 1238 [facility] Work Phone: 1(336) 730-304206-12-2020 Progress note Author Silvestre Ahn [facility] April 13, 2020 5:44pmNote Date/TimeJun2019 3:03pm[facility] at [address] [address] Rad Onc Follow Up Note - OP Signed Patient: Mojgan Pérez MR#: [id number] : 1955 Acct:[id number] Age/Sex: 64 / F Type: REG RCR Copies to: MD Yinka Downey MD~ Subjective - Service Date/Time Date: 04/13/20 Time: 12:00 - Diagnosis Multiple myeloma - Chief Complaint I have no pain in my hips - History of Present Illness 69-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 Marinelli and she also has nonalcoholic steatohepatitis and pancytopenia (her platelets today are 54,000). She had been seen in the liver clinic and liver transplantation was considered but ultimately, it was felt that she is not a candidate for liver transplant. She was seen earlier this year by Dr. Marinelli after an episode of epistaxis which did not recur. She did not have any evidence of gingival bleeding, hematuria or rectal bleeding. Patient complainedof deep aches in the left hip and low back pain which had become more pronouncedover last several weeks. Her skeletal survey about 6 months ago had shown pronounced osteopenia and osteoarthritis but because of her increasing pains, Dr. Marinelli ordered a PET/CT scan which was done on 01/02/2020. The PET scan showedmultiple areas of abnormal radiotracer uptake including the calvarium, cervical spine, thoracic spine, lumbar spine and sacrum, there were also focal abnormal areas of radiotracer accumulation within the sternum, pelvis, proximal femurs and distal femoral shafts. These were suspicious for diffuse marrow replacing process consistent with her history of multiple myeloma. Her main complaint remained the left hip pain which causes her difficulty in ambulation. After review of scans and discussion with Dr. Marinelli, patient was given a single dose of 800 cGy to both the right and left hips on 02/07/2020. She has continued to receive her systemic therapy and she has excellent palliation with complete relief of her pain (she takes 1 or 2 Percocets a day). She returned today for scheduled radiation oncology follow-up follow-up without any complaints of fever, chills or night sweats,weight loss, headaches, nausea, peripheral lymphadenopathy, cough, hemoptysis, abdominal discomfort, urinary or bowel problems, vaginal bleeding or discharge, leg swelling, motor or sensory changes. I've closely reviewed the patient's oncologic, medical, surgical, social, and family history. Changes noted above. I also reviewed the patient's medicationsvia reconciliation, as per the nursing record. - Review of Systems ROS: As per HPI. Objective Height 5 ft 2.99 in Weight 111.5 kg Temp 98.5 F 04/13/20 11:14 Pulse 73 04/13/20 11:14 Resp 20 04/13/20 11:14 BP 145/87 H 04/13/20 11:14 Pulse Ox 97 04/13/20 11:14 Pain: 0/10 Emotional Needs Assessment: Emotional Needs Identified? No Distress Screening Total 0 Karnofsky Performance Scale: 90%: Can perform normal activity, minor signs of disease Physical Exam: Examination today, she is alert, oriented, pleasant female who is in no acute distress. HEENT examination revealed no cranial neuropathy. No palpable neck lymphadenopathy. Her breasts were not examined today. Her lungs are clear to auscultation. Cardiac examination is unremarkable. She has no spinal or paraspinal tenderness. Her abdomen is soft and nontender and there isno palpable massor organomegaly. Pelvic and rectal examination not done. Local examination of both hips did not reveal any significant skin changes from her recent radiation. Mobility at both hips is full and nontender. She has no leg edema. Her neurological examination including motor, sensory and cerebellarfunctions are within normal limits. Results CBC & Chem 7: 04/05/20 11:30 04/05/20 11:30 Frjt-9-Jjyjdkifiyemo 1.9 mg/L (0.6-2.4) 12/07/18 16:14 Pdjlq-4-Ikvbzkden 0.3 g/dL (0.0-0.4) 03/12/20 10:03 Kriuw-4-Lgdxfiyrq 0.5 g/dL (0.4-1.0) 03/12/20 10:03 Beta Globulins 1.0 g/dL (0.7-1.3) 03/12/20 10:03 Impression: Multiple myeloma Assessment & Plan (1) Smoldering multiple myeloma (SMM) Plan: Patient's pain control remains adequate with 1-2 Percocets a day and she had excellent palliation of her hip pains. She will continue her systemic treatments under Dr. Marinelli's care and I plan to see her back for her next scheduled radiation oncology follow-up in 6 months or earlier if needed. Total Time Spent with Patient: Less than 30 minutes More than 50% of time allotted to patient education, answering questions, and coordinating care. N.B: Voice-recognition software was used in the creation of this note. Efforts were made to detect and correct typographical and/or grammatical errors;please excuse them should you find any. Dictated By: Silvestre Ahn MD DD/ [id number] Signed By: <Electronically signed by Silvestre Ahn MD> 04/13/20 1744 [facility] Work Phone: [phone]) 947-542606-01-2020 Progress note Author Fabiola Marinelli [facility] April 02, 2020 8:51pmNote Date/TimeJun2019 1:44pmTexas [facility] [place] [address] Hem/Onc Follow Up Note - OP Signed Patient: Mojgan Pérez MR#: [id number] : 1955 Acct:[id number] Age/Sex: 64 / F Type: REG RCR Copies to: MD Yinka Downey MD~ Subjective Date/Time of Service: Date of Service: 04/02/2020 Time of Service: 13:44 Chief Complaint: Patient is here for follow up to consent for treatment after tumor board and port placement on March 22 in [place]. HPI: 04/02/2020: Mojgan presents after infusion port [facility] by interventional radiologydue to platelet count 40,000--she had increased bruising at site post procedure, but this has completely resolved. Her hip painis well controlled since completion of palliative radiation and no new areas of pain. She has previously reviewed information regarding Daratumumab (first dosesplit 8mg/kg IV D1,D2, then if well tolerated 16mg/kg IV weekly), Velcade at about 50% dose (for liver dysfunction) 0.7mg/m2 D1,D4,D8, D11, and Jiorognccvkck10di IV weekly--repeat for every 3 week cycles 1st 3 cycles. She will take chemo class and likely start therapy within 2 weeks with toxicity visit in 3 weeks. Today we reviewed chemotherapy counseling for Daratumumab, Velcade, and Dexamethasone. Common toxicities were reviewed to include infusion reaction including rash/dyspnea/wheezing, myelosuppression, fatigue, nausea, vomiting, constipation, diarrhea, mouth sores, and alopecia. Other toxicities may in cludepneumonitis, neurologic, thromboembolism, hyperglycemia, hepatic and renal toxicities. The patient signed informed consent and will follow-up as directed. 01/18/2020 (phone followup)--The patient's son was available by phone and her daughter was contactedin a separate phone call as patient presented unaccompanied due to COVID-19 precautions in our clinic during the current epidemic. Bone marrow biopsy results were reviewed as follows from procedure pe rformed 01/26/2020: --Bone marrow biopsy was suboptimal for evaluation. --Increased lambda light chain restricted monoclonal plasma cells (1.9% by flow cytometry, approximately 6% and aspirate count, but 50% by immunohistochemical stains CD138). Sideroblastic iron present, negative for ring sideroblasts. Peripheral blood smear with mild red blood cell anisocytosis and polychromasia, leukopenia with absolute neutropenia (1000) and thrombocytopenia (54,000) consistent with prior baseline. Note: I discussed the results with Dr. Crook 01/26/2020. Preliminary findings were also discussed with Dr. Cummings 01/27/2020. Morphologic findings, immunohistochemical stains, flow cytometry, and ancillary studies may under represent the extent and severity of disease. The results of FISH myeloma panelwith prognostic markers and cytogenetic analysis are pending. --Given the patient's hip pain and presence of lytic lesions, she meets clinicalcriteria for activemyeloma. Given her hip pain and lytic lesions in weightbearing areas she was offered radiation therapy. She had a limited courseof hypofractionated palliative therapy to bilateral proximal femurs [address] A[address]. We discussed that given the COVID-19 epidemic and absence of othersignificant changes other than bony lesions (normal renal function, normal calcium, stable cytopenias), I would defer active therapy for myeloma for 4 to 6 weeks. Since she has significant history ofliver disease I will discuss her case with Dr. Piter Benavidez at [facility] malignant hematology for optimal regimen. The patient is not a transplant candidate given her nonalcoholic steatohepatitis and chronic thrombocytopenia but may be a candidate for either doublet therapy (Revlimid/dexamethasone) or triplet therapy with either Velcade/Revlimid/dexamethasone or daratumumab/Revlimid/dexamethasone. --02/03/2020: Mojgan presented unaccompanied for follow-up of bone marrow aspiration and biopsy performed by Dr. 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 The patient had been noting increased left hip pain over the past several months andplain films of the pelvis and bilateral femurs did show subtle lucencies in the bilateral proximal femurs corresponding to PET/CT findings but no other additional sclerotic lesions identified. No pathologic fractures were seen. --03/05/2020: Mojgan notes improvement of bilateral hip pain since radiation. No other changes in medical history in the past month--no infections, normal renal function, no hypercalcemia. Stable platelet counts without bleeding. Shewas given written literature regarding Dexamethasone, Velcade (thatwould be dose reduced to 0.7mg/m2 twice weekly), weekly Daratumumab and Revlimid, but I will defer decision of which regimen to use until discussion in malignant hematology tumor board. Also referring for infusion port placement prior to initiating therapy. Sign informed consent prior to initiating therapy. --Discussed with Dr. Benavidez who favors Daratumumab combination--will request prior liver biopsy and records from [facility] liver clinic. The patient and her son (by telephone) expressed understanding and will follow- up as directed in 2 weeks for consent and likely start of therapy. This is a 64-year-old lady on chronic disability has a history of arthritis, diabetes mellitus, hypertension, COPD, GERD, and fibromyalgia who was previously followed by [facility] in [place] for chronic mild to moderate thrombocytopenia. She states that she was followed with Dr. Kumari prior to his senior care and was told that she had an elevated protein level as well as thrombocytopenia but never had clinical bleeding. She is 4 para4 without complications and was never told that she was thrombocytopenic while . She is had multiple prior surgical procedures without any clinical bleeding. She had been recommended for a pain procedure with Dr. Wilson but he declined to do the procedure because her platelet count was less than 100,000. For this reason she received 2 platelet transfusions, with little improvement of her platelet count and her second transfusion resulted in throat tightening due to allergy to platelets . She has never beentreated with steroids and has never been told that she has immune thrombocytopenia. She has mild leukopenia with relative neutropenia, absolute neutrophil count of 400-800 and mild lymphocytosis. Hemoglobin is normal. She has not had any bright red blood per rectum or epistaxis. She has no history ofbleeding within the family however does have a mother and sister diagnosed with colon cancer, a brother diagnosed with lung cancer, and another sister diagnosedwith breast cancer. She had prior pain in the right hand mainly at the first MCP joint with some associated swelling and right foot pain and was evaluated by podiatry. She was told that her blood tests were negative forgout. She had screening with MALLORY, CCP, and rheumatoid factor all of which were negative. She says that she previously saw Dr. Petersen for cirrhosis but did not know of any specific therapy. We reviewed these findings from her liver ultrasound ordered by Dr. Benavidez Summer 2016. Initial consultation with me March 16, 2017. --The patient has been followed by me for some time for diagnosis of smoldering myeloma with a prior bone marrow biopsy May 2017 showing 15% plasma cells but the patient remained asymptomatic without bone pain or other CRAB criteria for therapy. She is also noted to have an ascending aortic aneurysm and has chronicliver disease with cirrhosis secondary to nonalcoholic steatohepatitis. She haschronic thrombocytopenia without bleeding ranging from 50-100,000 this is felt to be due to sequestration from her nonalcoholic steatohepatitis. She was previously on a liver transplant list but was recently notified that she is no longera candidate for liver transplant. She has had chronic pain from fi bromyalgia but noted increasing bilateral hip and upper thigh pain over the last 6 months. She alsois followed for EGD/colonoscopy with last documented procedure 09/21/2018: 1. Normal EGD, 2. Mild sigmoid diverticulosis, 3. Internal hemorrhoids, grade 2, 4. Anal fissure with active bleeding cauterized by bipolar cautery Bone osseous survey in June 2019 showed osteopenia and degenerative changes but no lytic or blastic lesion. Patient had an F-18 PET scan 01/02/2020 which showed multiple areas of involvementof bones with increased SUV activity. She was contacted with these results by phone and I recommended bone marrow aspirate and biopsy for assessment and analysis. Her prior labs were reviewed. Her SPEP does not show anymonoclonal gammopathy. On VAHID there appears to be a trace of monoclonal gammopathy. Free light chain ratio is less than 100. There is no evidence of renal sufficiency. Patient is not anemic. She doeshave some abnormal areas on bone scan. - Summary of Therapies Summary of Therapies: 1. 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 2. She underwent a single dose of palliative radiation therapy to bilateral hips, receiving 800 cGyto right and left hip in 1 fraction in separate vaz (with a single isocenter). The treatments were given with AP/PA vaz [id number] MV photons and MLC blocks. 3. Deferred active therapy for myeloma 2 months given COVID-19 epidemic with increased risk of myelosuppression and viral transmission of contacts. --Follow-up 03/05/2020 I discussed her case with Dr. Piter Benavidez at malignant hematology. --Given her significant hepatic dysfunction, I presented her case at malignant hematology tumor board to discuss optimal therapy. --Dose reduced Velcade 0.7 mg/m? twice weekly (day 1, day 4, day 8, day 11) every 3 weeks with dexamethasone 20 mg weekly and either daratumumab 16 mg/kg weekly of each 21-day cycle. --Commence initial therapy in about 2 weeks. We will need to watch liver function, platelet count, and neuropathy closely on Velcade. ROS Details: All systems reviewed & no additional complaints except as documented Subjective/ROS - Narrative: Constitutional: No Chills, No Diaphoresis, + Fatigue, No Fever, No Malaise, No Night Sweats, No Weakness, No Weight Gain, No Weight Loss Gastrointestinal: No Abdominal Pain, No Black Stool, No Bloating, No Bloody Stool, No Constipation,No Diarrhea, No Dysphagia, No Hematemesis, No Nausea, NoPostprandial Pain, No Rectal Bleeding, No Rectal Pain, No Vomiting, Other (chronic gastroesophageal reflux stable) --No jaundice or ascites but patient has longstanding nonalcoholic steatohepatitis with cirrhosis, previously followed by [facility] gastroenterology. Cardiovascular: No Chest Pain, No Edema, No Palpitations, No Syncope Genitourinary: No Discharge, No Dysuria, No Flank Pain, Frequency (chronic andunchanged), No Hematuria, No Incontinence, No Nocturia, No Urgency, No Urinary Retention Musculoskeletal: S/p right chest infusion port placement--no hematoma. Improvement of prior bilateral hip/thigh pain since radiation--patient previously noted the pain was more pronounced over the last 6 months; positive for intermittent lumbar back pain (chronic with pain radiating everywhere per prior outpatient visits), No Chest Wall Tenderness, Improvement of prior Joint Pain, Muscle Stiffness, Myalgia (history of fibromyalgia), No Neck Pain (reportsknown cervical disc disease) HEENT: No Blurred Vision, No Discharge, No Ear Pain, No Epistaxis, No Rhinorrhea, No Sore Throat--patient was seen in emergency department November 2019 with persistent epistaxis. She was treated withnasal clip and packing and was advised to continue Afrin. No recurrent bleeding. Respiratory: No Cough, No Hemoptysis, + Shortness of Breath (chronic and unchanged due to COPD), NoSputum, No Wheezing Neurological: No Dizziness, + stable Numbness/Tingling (reports long-standing bilateral foot numbness), No Pre-existing Deficit (no history of stroke or seizure), intermittent headache--unremarkable skeletal survey June 2019, but evaluated with 01/02/2020: F-18 PET/CT showing progression of smoldering myeloma to active disease. Hematologic/Lymphatic: Positive for bleeding Easily due to known thrombocytopenia from sequestration, Bruises Easily, No Enlarged Lymph Nodes, Other (reports allergy to prior platelet transfusion) Endocrine: Excessive Sweating (hot flashes, postmenopausal) Flushing, No Intolerance to Cold, Intolerance to Heat Psychiatric: No Depressed Mood, No Insomnia Integumentary: No Jaundice, No Lesions, No Rash Allergic/Immunology: No Pruritus PMFSH - History Attestation statement: The following information was validated with the patient. Source: Old Records Reviewed - Medical History Medical History: Medical History (Last Reviewed 04/02/20 @ 20:18 by Fabiola Marinelli MD) Aortic aneurysm COPD (chronic obstructive pulmonary disease) Diabetes Fibromyalgia GERD (gastroesophageal reflux disease) H/O: hysterectomy Iron deficiency Neutropenia Smoldering multiple myeloma (SMM) Smoldering myeloma Temporary low platelet count - Surgical History Surgical History: Surgical History (Last Reviewed 04/02/20 @ 20:18 by Fabiola Marinelli MD) History of appendectomy History of cholecystectomy - Social History Smoking Status: Former smoker Tobacco Type: cigarettes Substance Use Type: None Social History Comments: [facility] Home Medications & Allergies Allergies latex Allergy (Verified 04/18/19 11:57) Unknown Reaction moxifloxacin [From Avelox] Allergy (Verified 04/18/19 11:57) Hives Quinolones Allergy (Verified 04/18/19 11:57) Unknown Reaction tetracycline Allergy (Verified 04/18/19 11:57) Unknown Reaction Home Medications carvedilol 12.5 mg PO BID 11/20/17 [History Confirmed 04/02/20] duloxetine 60 mg PO DAILY 11/20/17 [History Confirmed 04/02/20] insulin detemir U-100 22 units SUB-Q QHS 11/20/17 [History Confirmed 04/02/20] oxycodone 10 mg PO TID PRN 11/20/17 [History Confirmed 04/02/20] albuterol sulfate 2 puff INHALATION Q6H PRN 11/24/17 [History Confirmed 04/02/20] fluticasone propion-salmeterol [Advair Diskus] 1 inh INHALATION Q12H PRN 11/24/17 [History Confirmed 04/02/20] omeprazole magnesium [Prilosec OTC] 40 mg PO DAILY 11/24/17 [History Confirmed 04/02/20] cyanocobalamin (vitamin B-12) 1,000 mcg PO DAILY 09/15/18 [History Confirmed 04/02/20] cholecalciferol (vitamin D3) [Vitamin D3] 1,000 unit PO DAILY 04/13/19 [History Confirmed 04/02/20] metformin 500 mg PO QPM 03/05/20 [History Confirmed 04/02/20] acyclovir 400 mg PO BID 90 Days #180 tab 04/02/20 [Rx] dexamethasone 20 mg PO ONCE 90 Days #60 tab 04/02/20 [Rx] ondansetron HCl [Zofran] 8 mg PO TID PRN #30 tab 04/02/20 [Rx] Objective - Height/Weight Height/Weight: Height 5 ft 2.99 in Weight 107.048 kg - Vital Signs Vital Signs: 04/02/20 13:34 Temperature 98.9 F Pulse Rate [Left Brachial] 81 Respiratory Rate 18 Blood Pressure [Left Arm] 142/88 H 02 Sat by Pulse Oximetry 95 - Pain Generalized Pain Intensity: 6 Bilateral Hip Pain Intensity: 5 Left Hip Pain Intensity: 4 Lower Back Pain Intensity: 7 Bilateral Leg Pain Intensity: 3 Bilateral Shoulder Pain Intensity: 6 - Emotional Needs Assessment Emotional Needs Assessment: Emotional Needs Identified? No Distress Screening Total 0 - ECOG Performance Status ECOG Score: 1 Physical Exam Narrative: Patient is alert and oriented x3. HEAD / FACE: Normocephalic. No tenderness to palpation over scalp, no sinus tenderness to palpation. EYES: Pupils are equal and reactive to light. Conjunctivae and lids are benign in appearance. Ocular movement intact. EARS: Hearing grossly intact. NOSE / MOUTH / THROAT: Nose, mouth, tongue and oropharynx are benign in appearance. No signs of inflammation. NECK / THYROID: Neck is supple. Thyroid is symmetrical, without thyromegaly, masses or palpable nodules. LYMPHATIC: No palpable cervical, supraclavicular, axillary, or inguinal adenopathy. RESPIRATORY: Normal inspection. Lungs clear to auscultation and percussion. No wheezing, rales, rhonchi or rubs. Normal effort. Right chest wall infusion portwithout ecchymosis. CARDIOVASCULAR: Regular rate and rhythm. No murmurs, gallops, or rubs. VASCULAR: Carotid, radial, femoral and pedal pulses present bilaterally. No bruits. ABDOMEN: Bowel sounds normoactive. Soft, nontender and non-distended. No hepatosplenomegaly. No masses. GENITOURINARY: No CVA tenderness. No suprapubic fullness or tenderness. No groinadenopathy. No evidence of hernias. INTEGUMENTARY: The skin is unremarkable. No rashes. No suspicious lesions. No bruising or petechiaenoted. BACK / SPINE: The back is nontender to percussion over vertebral bodies or SI joints. No step off deformity. MUSCULOSKELETAL: Normal musculature, no joint deformities or abnormalities, normal range of motion for all four extremities. EXTREMITIES: No edema, cyanosis or clubbing. No Destini sign. NEUROLOGICAL: Alert and oriented. Cranial nerves intact. No gross motor or sensory deficits, patient ambulates unassisted. PSYCHIATRIC: No anxiety or evidence of depression. Results - Labs Labs: Diagram of Most Recent CBC and CMP 03/12/20 10:03 03/12/20 10:03 03/12/2020: Myeloma labs with no serum M-spike, + urine M spike 22.2mg/24h (14%). Immunofixation IgAlambda specificity. IgA normal 227, Serum kappa 20.6, serumlambda 516.7, Free kappa/lambda ratio 0.04. Normal renal function and calcium 8.5. Lower ANC 600 and platelets 40,000 - Impressions No new imaging for review. Assessment and Plan (1) Multiple myeloma Qualifiers: Multiple myeloma remission status: not in remission Qualified Code(s): C90.00 - Multiple myeloma not having achieved remission Mojgan 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 She has high risk cytogenetics and I [facility] Her persistent thrombocytopenia made her ineligible for any clinical trials, and preventedher from receiving local pain procedures given her chronic low back pain. --05/2017 PET/CT images and reports performed for staging to exclude bone involvement with myeloma. 2 indeterminate areas of uptake thought to be degenerative arthritis vs early bone findings of myeloma (right parietooccipitalarea and upper sternum). She has remained asymptomatic [...] showed no lytic lesions and she has stableshoulder, hand, and right SI joint pain (although likely due to fibromyalgia. --Prior osseous survey 07/01/2019 showed osteopenia but no compression fractures or lytic lesions were identified. She had no significant change in myeloma labs(mild increase of urine M-spike, kappa/lambda ratio, and normal serum M- spike and quant immunoglobulins). Urine protein still undetectable, therefore will continue surveillance every 6 months with the same labs--no hypercalcemia, renaldysfunction (or proteinuria), anemia, or new bone symptoms. [...] proteins with urine M spike 43.1 but totalprotein 34.4, with no reported urine creatinine. --We deferred immunosuppressive chemotherapy for about 1 month due to control ofsymptoms after palliative radiation and concern of potential peak of COVID-19 inlate January early March. --She presented for follow-up 03/05/2020 and we discussed potential therapy options (with son available by phone). --I discussed her case with Dr. Piter Benavidez of malignant hematology, possibly presenting the patient in hematology tumor board at [facility]. --Infusion port placed 03/22/2020 at [facility] due to low platelets. No complications. --03/12/2020: Myeloma labs with no serum M-spike, + urine M spike 22.2mg/24h (14%). Immunofixation IgA lambda specificity. IgA normal 227, Serum kappa 20.6, serum lambda 516.7, Free kappa/lambda ratio0.04. Normal renal function and calcium. Lower ANC 600 and platelets 40,000 --04/02/2020: Signed informed consent for weekly dexamethasone 20 mg IV (careful to watch blood sugars with diabetes and known hepatic dysfunction), decreased dose of bortezomib 0.7 mg/m? twice weekly for 2 weeks on 1 week off (due to known liver disease and thrombocytopenia), and daratumumab 8mg/kg D1,D2 IV firstweek, then 16 mg/kg IV weekly and we may consider Revlimid as a 4th medication if needed (deferred for worsening neutropenia and thrombocytopenia--I am reluctant to add this therapy initially). --She has baseline cirrhosis with chronic thrombocytopenia and I am attempting to treat her with the least myelosuppressive regimen, with 2 month deferral of therapy due to COVID-19 pandemic noted above. Patient does not have any currentsigns or symptoms of infection. I'm placing her on Acyclovir 400mg bid for VZV prophylaxis. --We requested prior liver biopsy from [facility] for review of the extentof her known liver dysfunction. It is doubtful she will be a transplant candidate given her history of cirrhosis and chronic cytopenias. --We will commence therapy within 2 weeks then she will be seen by me the following week for toxicity evaluation of Daratumumab, Velcade, Dexamethasone regimen. This is a high complexity visit over 45 minutes for discussion of results and consent for treatment. I also personally spoke with Dr. Benavidez regarding treatment options and coordinated [facility] malignant hematology tumor board presentation--reviewing recommendations today. 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 I previously reviewed her outpatient records from [facility], including review of notes, laboratories, and prior bone marrow biopsy 13 years ago. 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 Most recent platelet count is relatively stable at 54,000 but no clinical bleeding. She waspreviously referred to weight reduction clinic and may have slow improvement of steatohepatitis with lifestyle modification. Unless she has active bleeding or planned surgery, we will continue observation during treatment of active myelomato commence next month as noted above. --Agree with recommendation for EGD surveillance for varices (last was 09/2018--negative). This will be deferred during current COVID-19 epidemic. --Prior vitamin B12 and folic acid are normal, for known history of neuropathy. As noted above, I reviewed the negative M spike on serum protein electrophoresiswith immunofixation, but positive for Bence Murray protein on urine protein electrophoresis. Her Quantitative immunoglobulins IgG, IgA, and I gM were all within normal limits, however her serum kappa lambda light chain analysis showeda predominance of lambda light chains. --Previous labs for lupus anticoagulant with DRVVT, hexagonal phase phospholipid, anti-cardiolipin IgG and IgA, and beta 2 glycoprotein IgG and IgA were within normal limits. --Evaluated in ED November 2019 for epistaxis which resolved. Platelet count wasstable at 12/28/2019 follow-up. She continues surveillance with liver clinic at [facility] and I will continue to follow her every 6 months, sooner if newbleeding issues arise. --04/02/2020: As noted above we reviewed informed consent for Daratumumab/Velcade/Dexamethasone for active myeloma therapy. I requested priorliver biopsy results and notes from liver clinic at [facility]. Platelet count now is 40,000 but patient has had no active bleeding following infusion port placement 03/22/2020. 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 She wasreferred to [facility] to attempt weight reduction through diet and exercise that may prevent further fatty infiltration that may further impairher liver function. [facility] hepatology discussed liver transplant but sheis likely no longer a candidate for this given active myeloma. We will discuss least hepatotoxic regimen for treatment of her active myeloma. --Requesting prior liver biopsy and [facility] liver clinic records. (4) Neutropenia, unspecified Qualifiers: Neutropenia type: unspecified Qualified Code(s): D70.9 - Neutropenia, unspecified Moderate worsening neutropenia without infection (current WBC 2000, ANC 600)--may related to new diagnosis of active myeloma and no nutritional deficiency. Treating with less myelosuppressive regimen(Velcade rather than Revlimid) for myeloma. Of note no dysplastic changes were noted on bone marrow biopsy. (5) Diabetes mellitus Qualifiers: Diabetes mellitus type: type 2 Diabetes mellitus complication status: without complication Suboptimal diabetes control with recent Hemoglobin A1c 8.4--notes recent adjustment in her diabetesregimen by her primary physician. She will be treated with weekly dexamethasone therapy at 20mg dose and may require supplemental insulin doses once we commence therapy. Will address at time of chemotherapy toxicity followup in about 3 weeks. (6) Aneurysm of ascending aorta This has been present on prior exams, measured 4.1cm on most recent imaging (Chest CT 04/2019) and no indication for surgical management at this time. (7) Obesity Qualifiers: Body mass index: BMI 40.0-44.9 KAPADIA--continue f/u in weight reduction clinic. Defer to PCM. (8) Cancer-related pain Improved symptoms after palliative radiation to bilateral hips--one dose 02/07/2020. Will continue tofollow on myeloma chemotherapy. - Chemo Plan Chemo Plan (Dose, Rate, Freq): Palliative radiation to 02/07/2020, deferred active therapy for myeloma for 8 weeks due to current COVID-19 epidemic. Discussed at Malignant Hematology Tumor Board early March to determine optimal regimen given her comorbidities. --Mid April will begin weekly dexamethasone 20 mg IV (careful to watch blood sugars with diabetes and known hepatic dysfunction), decreased dose of bortezomib 0.7 mg/m? twice weekly for 2 weeks on 1 week off (due to known liver disease and thrombocytopenia), and daratumumab 8mg/kg D1,D2 IV first week, then 16 mg/kgIV weekly - Time with Patient Total Time Spent with Patient: 45 min Coordination of Care & Counseling Time: Greater than 50% of time spent with patient was for coordination of care (as documented) and [id number] counseling of patient and/or family. Dictated By: Fabiola Marinelli MD DD/ [id number] Signed By: <Electronically signed by MD Fabiola Marinelli> 04/02/202050 [facility] Work Phone: [phone]) 660-108105-04-2020 Progress note Author Fabiola Marinelli [facility] March 05, 2020 9:14pmNote Date/TimeMay 2019 12:04pmTexas [facility] [place] [address] Hem/Onc Follow Up Note - OP Signed Patient: Mojgan Pérez MR#: [id number] : 1955 Acct:[id number] Age/Sex: 64 / F Type: REG RCR Copies to: MD Yinka Downey MD~ Subjective Date/Time of Service: Date of Service: 03/05/2020 Time of Service: 11:04 Chief Complaint: Patient here for one month follow up appointment. Patient completed palliative radiation to hips and reports improvement with complaints of pain. HPI: Mojgan presents unaccompanied for follow-up of bone marrow aspiration and biopsy performed by Dr. 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 The patient had been noting increased left hip pain over the past several months and plain films of the pelvis and bilateral femurs did show subtle lucencies in the bilateral proximal femurs corresponding to PET/CT findings but no other additional sclerotic lesions identified. No pathologic fractures were seen. The patient has been followed by me for some time for diagnosis of smoldering myeloma with a prior bone marrow biopsy May 2017 showing 15% plasma cells but the patient remained asymptomatic without bone pain or other CRAB criteria for therapy. She is also noted to have an ascending aortic aneurysmand has chronicliver disease with cirrhosis secondary to nonalcoholic steatohepatitis. She haschronic thrombocytopenia without bleeding ranging from 50-100,000 this is felt to be due to sequestrationfrom her nonalcoholic steatohepatitis. She was previously on a liver transplant list but was recently notified that she is no longer a candidate for liver transplant. She has had chronic pain from fib romyalgia but noted increasing bilateral hip and upper thigh pain over the last 6 months. She also is followed for EGD/colonoscopy with last documented procedure 09/21/2018: 1. Normal EGD, 2. Mild sigmoid diverticulosis, 3. Internal hemorrhoids, grade 2, 4. Anal fissure with active bleeding cauterized by bipolar cautery Bone osseous survey in June 2019 showed osteopenia and degenerative changes but no lytic or blastic lesion. Patient had an F-18 PET scan 01/02/2020 which showed multiple areas of involvementof bones with increased SUV activity. She was contacted with these results by phone and I recommended bone marrow aspirate and biopsy for assessment and analysis. Her prior labs were reviewed. Her SPEP does not show anymonoclonal gammopathy. On VAHID there appears to be a trace of monoclonal gammopathy. Free light chain ratio is less than 100. There is no evidence of renal sufficiency. Patient is not anemic. She doeshave some abnormal areas on bone scan. --The patient's son was available by phone and her daughter was contacted in a separate phone call as patient presented unaccompanied due to COVID-19 precautions in our clinic during the current epidemic. Bone marrow biopsy results were reviewed as follows from procedure performed 01/26/2020: --Bone marrow biopsy was suboptimal for evaluation. --Increased lambda light chain restricted monoclonal plasma cells (1.9% by flow cytometry, approximately 6% and aspirate count, but 50% by immunohistochemical stains [id number]). Sideroblastic iron present, negative for ring sideroblasts. Peripheral blood smear with mild red blood cell anisocytosis and polychromasia, leukopenia with absolute neutropenia (1000) and thrombocytopenia (54,000) consistent with prior baseline. Note: I discussed the results with Dr. Crook 01/26/2020. Preliminary findings were also discussed with Dr. Cummings 01/27/2020. Morphologic findings, immunohistochemical stains, flow cytometry, and ancillary studies may under represent the extent and severity of disease. The results of FISH myeloma panelwith prognostic markers and cytogenetic analysis are pending. --Given the patient's hip pain and presence of lytic lesions, she meets clinicalcriteria for activemyeloma. Given her hip pain and lytic lesions in weightbearing areas she was offered radiation therapy. She had a limited courseof hypofractionated palliative therapy to bilateral proximal femurs [address] Ahn. We discussed that given the COVID-19 epidemic and absence of othersignificant changes other than bony lesions (normal renal function, normal calcium, stable cytopenias), I would defer active therapy for myeloma for 4 to 6 weeks. Since she has significant history ofliver disease I will discuss her case with Dr. Piter Benavidez at [facility] malignant hematology for optimal regimen. The patient is not a transplant candidate given her nonalcoholic steatohepatitis and chronic thrombocytopenia but may be a candidate for either doublet therapy (Revlimid/dexamethasone) or triplet therapy with either Velcade/Revlimid/dexamethasone or daratumumab/Revlimid/dexamethasone. --03/05/2020: Mojgan notes improvement of bilateral hip pain since radiation. No other changes in medical history in the past month--no infections, normal renal function, no hypercalcemia. Stable platelet counts without bleeding. Shewas given written literature regarding Dexamethasone, Velcade (thatwould be dose reduced to 0.7mg/m2 twice weekly), weekly Daratumumab and Revlimid, but I will defer decision of which regimen to use until discussion in malignant hematology tumor board. Also referring for infusion port placement prior to initiating therapy. Sign informed consent prior to initiating therapy. --Discussed with Dr. Benavidez who favors Daratumumab combination--will request prior liver biopsy and records from [facility] liver clinic. The patient and her son (by telephone) expressed understanding and will follow- up as directed in 2 weeks for consent and likely start of therapy. This is a 64-year-old lady on chronic disability has a history of arthritis, diabetes mellitus, hypertension, COPD, GERD, and fibromyalgia [facility]. She states that she was followed with Dr. Kumari prior to his senior care and was told that she had an elevated protein level as well as thrombocytopenia but never had clinical bleeding. She is 4 para4 without complicationsand was never told that she was thrombocytopenic while . She is had multiple prior surgicalprocedures without any clinical bleeding. She had been recommended for a pain procedure with Dr. Wilson but he declined to do the procedure because her platelet count was less than 100,000. For this reason she received 2 platelet transfusions, with little improvement of her platelet count and her second transfusion resulted in throat tightening due to allergy to platelets . She has never beentreated with steroids and has never been told that she has immune thrombocytopenia. She has mild leukopenia with relative neutropenia, absolute neutrophil count of 400-800 and mild lymphocytosis. Hemoglobin is normal. She has not had any bright red blood per rectum or epistaxis. She has no history ofbleeding within the family however does have a mother and sister diagnosed with colon cancer, a brother diagnosed with lung cancer, and another sister diagnosedwith breast cancer. She had prior pain in the right hand mainly at the first MCP joint with some associated swelling and right foot pain and was evaluated by podiatry. She was told that her blood tests were negative forgout. She had screening with MALLORY, CCP, and rheumatoid factor all of which were negative. She says that she previously saw Dr. Petersen for cirrhosis but did not know of any specific therapy. We reviewed these findings from her liver ultrasound ordered by Dr. Benavidez Summer 2016. Initial consultation with me March 16, 2017. - Summary of Therapies Summary of Therapies: 1. 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 2. She underwent a single dose of palliative radiation therapy to bilateral hips, receiving 800 cGyto right and left hip in 1 fraction in separate vaz (with a single isocenter). The treatments were given with AP/PA vaz [id number] MV photons and MLC blocks. 3. Deferred active therapy for myeloma at least 1 month given COVID-19 epidemicwith increased risk of myelosuppression and viral transmission of contacts. --Follow-up 03/05/2020 I discussed her case with Dr. Piter Benavidez at malignant hematology. Given her significant hepatic dysfunction, we discussed either giving dose reduced Velcade 0.7 mg/m? twice weekly (day 1, day 4, day 8, day 11)every 3 weeks with dexamethasone 20 mg weekly and either daratumumab 16 mg/kg weekly or Revlimid 15 mg daily days 1-14 of each 21-day cycle. I am obtaining her priorliver biopsy from [facility] for review as well as presenting her case at malignant hematology tumor board to discuss optimal therapy. I am referring for infusion port placement for potential Velcade and/or daratumumab therapy given poor venous access. --Likely commence initial therapy in about 2 weeks and we will consent the patient at that time. Wewill need to watch liver function, platelet count, andneuropathy closely on Velcade or if Revlimid given she may have more significantneutropenia. ROS Details: All systems reviewed & no additional complaints except as documented Subjective/ROS - Narrative: Constitutional: No Chills, No Diaphoresis, Fatigue (no change since last 04/14/2017), No Fever, No Malaise, No Night Sweats, No Weakness, No Weight Gain, No Weight Loss Gastrointestinal: No Abdominal Pain, No Black Stool, No Bloating, No Bloody Stool, No Constipation,No Diarrhea, No Dysphagia, No Hematemesis, No Nausea, NoPostprandial Pain, No Rectal Bleeding, No Rectal Pain, No Vomiting, Other (chronic gastroesophageal reflux stable) --No jaundice or ascites but patient has longstanding nonalcoholic steatohepatitis with cirrhosis, previously followed by [facility] gastroenterology. Cardiovascular: No Chest Pain, No Edema, No Palpitations, No Syncope Genitourinary: No Discharge, No Dysuria, No Flank Pain, Frequency (chronic andunchanged)No Hematuria, No Incontinence, No Nocturia, No Urgency, No Urinary Retention Musculoskeletal: Improvement of prior bilateral hip/thigh pain--patient previously noted the pain was more pronounced over the last 6 months; positive for intermittent lumbar back Pain (chronic with pain radiating everywhere per prior outpatient visits), No Chest Wall Tenderness, Improvement of prior Joint Pain (right index MCP joint as per HPI above, right > left shoulder, right SI joint) Joint Swelling (right index MCP joint), Muscle Stiffness, Myalgia (history of fibromyalgia), No Neck Pain (reports known cervical disc disease) --Hip and back pain has improved since palliative radiation 02/07/2020, ambulatingwithout assistance. HEENT: No Blurred Vision, No Discharge, No Ear Pain, No Epistaxis, No Rhinorrhea, No Sore Throat--patient was seen in emergency department November 2019 with persistent epistaxis. She was treated withnasal clip and packing andwas advised to continue Afrin. No recurrent bleeding. Respiratory: No Cough, No Hemoptysis, No Shortness of Breath (chronic and unchanged due to COPD), No Sputum, No Wheezing Neurological: No Dizziness, + stable Numbness/Tingling (reports long-standing bilateral foot numbness), No Pre-existing Deficit (no history of stroke or seizure), intermittent headache--unremarkable skeletal survey June 2019, but evaluated with F-18 PET/CT showing progression of smoldering myeloma to active disease. Hematologic/Lymphatic: Positive for bleeding Easily due to known thrombocytopenia from sequestration, Bruises Easily, No Enlarged Lymph Nodes, Other (reports allergy to prior platelet transfusion) Endocrine: Excessive Sweating (hot flashes, postmenopausal) Flushing, No Intolerance to Cold, Intolerance to Heat Psychiatric: No Depressed Mood, No Insomnia Integumentary: No Jaundice, No Lesions, No Rash Allergic/Immunology: No Pruritus PMFSH - History Attestation statement: The following information was validated with the patient. Source: Old Records Reviewed - Medical History Medical History: Medical History (Last Reviewed 03/05/20 @ 14:55 by Fabiola Marinelli MD) Aortic aneurysm COPD (chronic obstructive pulmonary disease) Diabetes Fibromyalgia GERD (gastroesophageal reflux disease) H/O: hysterectomy Iron deficiency Neutropenia Smoldering multiple myeloma (SMM) Smoldering myeloma Temporary low platelet count - Surgical History Surgical History: Surgical History (Last Reviewed 03/05/20 @ 14:55 by Fabiola Marinelli MD) History of appendectomy History of cholecystectomy - Social History Smoking Status: Former smoker Tobacco Type: cigarettes Substance Use Type: None Social History Comments: Lives with son sharonda bustos Home Medications & Allergies Allergies latex Allergy (Verified 04/18/19 11:57) Unknown Reaction moxifloxacin [From Avelox] Allergy (Verified 04/18/19 11:57) Hives Quinolones Allergy (Verified 04/18/19 11:57) Unknown Reaction tetracycline Allergy (Verified 04/18/19 11:57) Unknown Reaction Home Medications carvedilol 12.5 mg PO BID 11/20/17 [History Confirmed 03/05/20] duloxetine 60 mg PO DAILY 11/20/17 [History Confirmed 03/05/20] insulin detemir U-100 22 units SUB-Q QHS 11/20/17 [History Confirmed 03/05/20] oxycodone 10 mg PO TID PRN 11/20/17 [History Confirmed 03/05/20] Prilosec OTC 40 mg PO DAILY 11/24/17 [History Confirmed 03/05/20] albuterol sulfate 2 puff INHALATION Q6H PRN 11/24/17 [History Confirmed 03/05/20] fluticasone propion-salmeterol [Advair Diskus] 1 inh INHALATION Q12H PRN 11/24/17 [History Confirmed 03/05/20] cyanocobalamin (vitamin B-12) 1,000 mcg PO DAILY 09/15/18 [History Confirmed 03/05/20] cholecalciferol (vitamin D3) [Vitamin D3] 1,000 unit PO DAILY 04/13/19 [History Confirmed 03/05/20] metformin 500 mg PO QPM 03/05/20 [History Confirmed 03/05/20] Objective - Height/Weight Height/Weight: Height 5 ft 2.99 in Weight 106.73 kg - Vital Signs Vital Signs: 03/05/20 10:56 Temperature 97.4 F L Pulse Rate [Left Brachial] 78 Respiratory Rate 20 Blood Pressure [Left Arm] 132/67 02 Sat by Pulse Oximetry 95 - Pain Generalized Pain Intensity: 5 Bilateral Hip Pain Intensity: 5 Left Hip Pain Intensity: 4 Lower Back Pain Intensity: 7 Bilateral Leg Pain Intensity: 3 Bilateral Shoulder Pain Intensity: 6 - Emotional Needs Assessment Emotional Needs Assessment: Emotional Needs Identified? No Distress Screening Total 3 Support System Child/Children - ECOG Performance Status ECOG Score: 1 Physical Exam Narrative: Patient is alert and oriented x3. HEENT exam is atraumatic normocephalic. No thyromegaly noted. Cardiovascular/lungs exam deferred, please see exam from Dr. Abel Cummings 01/26/2020. Patient is inno respiratory distress with normal chest inspection. Abdominal exam is also deferred. Here for review of results only. Skin shows no evidence petechia or purpura. Neurological exam is unremarkable, patient ambulates unassisted. Psychiatric exam is unremarkable for anxiety or depression. Results - Labs Labs: Diagram of Most Recent CBC and CMP 01/26/20 11:03 12/20/19 11:21 Most recent labs 02/22/2020: White blood cells 2400, hemoglobin 11.5, platelet count 45,000, absolute neutrophil count 800 Sodium 139, potassium 4, BUN 8, creatinine 0.53, EGFR greater than 60, glucose 207, hemoglobin A1c 8.4, calcium 8.4 Total bilirubin 0.9 (previously 1.3), AST 38, ALT 24, alkaline phosphatase 101, total protein 5.7, albumin 3.1 12/20/2019 most recent serum protein electrophoresis with M spike not observed, serum immunofixationIgM monoclonal protein with kappa light chain specificity 02/22/2020 urine microalbumin increased 3.4, random creatinine 228.8, ratio 15 12/20/2019: Free kappa 23.6, free lambda 479.4, free kappa/lambda ratio 0.05 --we will repeat urine protein electrophoresis with spot urine protein/creatinine ratio and repeat kappa/lambda light chains with SPEP and quantitative immunoglobulins prior to starting chemotherapy mid-March. - Impressions PET tumor subq tx strat wb 01/02/2020 2:27 PM SIGNS AND SYMPTOMS: SMOLDERING MYELOMA, BONE PAIN PROTOCOL: Whole body syndrome fluorine head imaging was obtained after intravenous radiotracer administration. Low-dose CT whole body was also performed. After attenuation correction of PET images, fused PET CT images weregenerated and reconstructed in axial, sagittal, and coronal plane. COMPARISON: 11/16/2017 RADIOPHARMACEUTICAL: 10.15 mCi of NaF FINDINGS: There are multiple focal areas of increased radiotracer accumulation with the calvarium, greater inthe frontal bones and occipital bones. There are scattered focal areas of abnormal radiotracer accumulation throughout the cervical spine, thoracic spine, and lumbar spine. Multifocal radiotracer accumulation is noted within the sacrum, greatest at S1. There is increased radiotracer accumulation throughout the pelvis and hips. There are focal areas of increased radiotracer accumulation within thedistal femur at the level of the knee. Focal abnormal radiotracer accumulation is noted within the medial weightbearing joint spaces bilaterally. Degenerative in nature. There are areas of focal radiotracer accumulation throughout the ankles, feet, wrists, shoulders which are presumed to be degenerative in nature. PET/PET tumor subq tx strat wb IMPRESSION: Multiple focal areas of abnormal radiotracer accumulation throughout the calvarium, cervical spine,thoracic spine, lumbar spine, and sacrum. There are [...] be osteoarthritic in nature. Impression dictated by: Juan J Frazier M.D.01/02/2020 3:31 PM Date of Service: 01/31/20 XR/XR pelvis 1-2V: abnormal pet Copies to: MD Silvestre Downey MD~ Single view of the pelvis plain film HISTORY:Abnormal PET/CT. Small during multiple myeloma COMPARISON:None SI joints are maintained. No hip fracture or dislocation is present. No acute bony findings identified. No focal soft tissue abnormality seen. No sclerotic lesions identified. Subtle areas of lucency throughout the proximal femurs identified.Additional subtle lytic lesions throughout the pelvis identified. XR/XR pelvis 1-2V IMPRESSION:Subtle lytic lesions of the pelvis and proximal femurs corresponding with PET/CT findings. 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 Impression dictated by: Jorge Duffy M.D.01/31/2020 12:10 PM Assessment and Plan (1) Multiple myeloma Qualifiers: Multiple myeloma remission status: not in remission Qualified Code(s): C90.00 - Multiple myeloma not having achieved remission Mojgan previously had a diagnosis of monoclonal gammopathy of undetermined significance, but due to worsening of her thrombocytopenia without bleeding and chronic mild leukopenia without infection, further labs and bone marrow biopsy was performed in March 2017. --Diagnostic for smoldering myeloma (15% plasma cells by bone marrow biopsy 03/31/2017--[facility] review of this specimen notes 10% plasma cell involvement). She has high risk cytogenetics and I sent her for consultation with Dr. Piter Benavidez at [facility] in 2016. Her persistent thrombocytopenia made her ineligible for any clinical trials, and prevented her from receiving local pain procedures given her chronic low back pain. --05/2017 PET/CT images and reports performed for staging to exclude bone involvement with myeloma. 2 indeterminate areas of uptake thought to be degenerative arthritis vs early bone findings of myeloma (right parietooccipitalarea and upper sternum). She has remained asymptomatic [...] showed no lytic lesions and she has stableshoulder, hand, and right SI joint pain (although likely due to fibromyalgia. --Prior osseous survey 07/01/2019 showed osteopenia but no compression fractures or lytic lesions were identified. She had no significant change in myeloma labs(mild increase of urine M-spike, kappa/lambda ratio, and normal serum M- spike and quant immunoglobulins). Urine protein still undetectable, therefore will continue surveillance every 6 months with the same labs--no hypercalcemia, renaldysfunction (or proteinuria), anemia, or new bone symptoms. -------- --Due to COVID-19 epidemic, her 6-month follow-up [...] minimize exposures during COVID-19 epidemic. --The patient's most recent myeloma labs (December 2019) do show normal quantitative immunoglobulins with IgA lambda monoclonal protein by immunofixation (serum IgA is 272). Her kappa/lambda ratio shows a predominance of free lambda 479 with elevated free kappa 23.6 and abnormal free kappa/lambda ratio of 0.05. Urine immunofixation also shows lambda type Bence-Murray proteinswith urine M spike 43.1 but total protein 34.4, with no reported urine creatinine. --We deferred immunosuppressive chemotherapy for about 1 month due to control ofsymptoms after palliative radiation and concern of potential peak of COVID-19 inlate January early March. --She presents for follow-up 03/05/2020 and we discussed potential therapy options(with son availableby phone). --I discussed her case with Dr. Piter Benavidez of malignant hematology, possibly presenting the patient in hematology tumor board at [facility]. Options include weekly dexamethasone 20 mg orally (careful to watch blood sugarswith diabetes and known hepatic dysfunction), decreased dose of bortezomib 0.7 mg/m? twice weekly for 2 weeks on 1 week off (due to known liver disease and thrombocytopenia). He also recommends potential daratumumab 16 mg/m? IV weekly and we may consider Revlimid as an option, however given her baseline neutropenia I am reluctant to add this therapy initially. --She has baseline cirrhosis with chronic thrombocytopenia and I am attempting to treat her with the least myelosuppressive regimen, with deferral of therapy due to COVID-19 pandemic noted above. Patient does not have any current signs or symptoms of infection. We will obtain prior liver biopsy from [facility] for review of the extent of her known liver dysfunction. It is doubtful she will be a transplant candidate given her history of cirrhosis and chronic cytopenias. --Due to poor venous access we will refer for infusion port placement and I willfollow-up with her in approximately 2 weeks to discuss the recommendations of Dr. Ann and [facility] malignant hematology tumor board. We will commence therapy at that time and I will send serum and urine protein electrophoresis, urine protein and creatinine ratio, quantitative immunoglobulins and updated kappa/lambda light chain ratio. --She will be seen by me the following week for toxicity evaluation of what everregimen we decide at that point. This is a high complexity visit over 45 minutes for discussion of bone marrow biopsy, PET results, and potential treatment options. I also personally spoke with Dr. Benavidez regarding treatment options and coordinated 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 I previously reviewed her outpatient records from [facility], including review of notes, laboratories, and prior bone marrow biopsy 13 years ago. 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 Most recent platelet count is relatively stable at 54,000 but no clinical bleeding. She waspreviously referred to weight reduction clinic and may have slow improvement of steatohepatitis with lifestyle modification. Unless she has active bleeding or planned surgery, we will continue observation during treatment of active myelomato commence next month as noted above. --Agree with recommendation for EGD surveillance for varices (last was 09/2018--negative). This will be deferred during current COVID-19 epidemic. --Prior vitamin B12 and folic acid are normal, for known history of neuropathy. As noted above, I reviewed the negative M spike on serum protein electrophoresiswith immunofixation, but positive for Bence Murray protein on urine protein electrophoresis. Her Quantitative immunoglobulins IgG, IgA, and I gM were all within normal limits, however her serum kappa lambda light chain analysis showeda predominance of lambda light chains. --Previous labs for lupus anticoagulant with DRVVT, hexagonal phase phospholipid, anti-cardiolipin IgG and IgA, and beta 2 glycoprotein IgG and IgA were within normal limits. --Evaluated in ED November 2019 for epistaxis which resolved. Platelet count wasstable at 12/28/2019 follow-up. She continues surveillance with liver clinic at [facility] and I will continue to follow her every 6 months, sooner if newbleeding issues arise. --03/05/2020: As noted above we have been discussing potential regimens for activemyeloma therapy. I am requesting prior liver biopsy results and notes from liver clinic at [facility]. Platelet count now is 45,000 but patient has had no active bleeding. Although we had previously determined that her thrombocytopenia was secondary to sequestration, it could also be due to active myeloma and wewill have to observe closely with myelosuppressive therapy for myeloma. I will update the [facility] liver clinic to our plans for therapy. 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 She wasreferred to [facility] to attempt weight reduction through diet and exercise that may prevent further fatty infiltration that may further impairher liver function. [facility] hepatology discussed liver transplant but sheis likely no longer a candidate for this given active myeloma. We will discuss least hepatotoxic regimen for treatment of her active myeloma. --Requesting prior liver biopsy and [facility] liver clinic records prior to initiating therapy. (4) Neutropenia, unspecified Qualifiers: Neutropenia type: unspecified Qualified Code(s): D70.9 - Neutropenia, unspecified Stable mild neutropenia without infection (current ANC 800--mildly decreased from prior values)--unlikely related to new diagnosis of active myeloma and no nutritional deficiency. Consider less myelosuppressive regimen (Velcade rather than Revlimid) for myeloma. Of note no dysplastic changes were noted on bone marrow biopsy. (5) Diabetes mellitus Qualifiers: Diabetes mellitus type: type 2 Diabetes mellitus complication status: without complication Suboptimal diabetes control with recent Hemoglobin A1c 8.4--notes recent adjustment in her diabetesregimen by her primary physician. She will likely require dexamethasone therapy and may require supplemental insulin doses once wecommence therapy. Will address at time of chemotherapy counseling in 2 weeks. (6) Aneurysm of ascending aorta This has been present on prior exams, measured 4.1cm on most recent imaging (Chest CT 04/2019) and no indication for surgical management at this time. (7) Obesity Qualifiers: Body mass index: BMI 40.0-44.9 KAPADIA--continue f/u in weight reduction clinic. Defer to PCM. (8) Cancer-related pain Improved symptoms after palliative radiation to bilateral hips--one dose 02/07/2020. Will continue tofollow on myeloma chemotherapy. - Chemo Plan Chemo Plan (Dose, Rate, Freq): Palliative radiation to 02/07/2020, deferred active therapy for myeloma for 4 weeks due to current COVID-19 epidemic. Will discuss at Malignant HematologyTumor Board early March to determine optimal regimen given her comorbidities. - Time with Patient Total Time Spent with Patient: 45 min Coordination of Care & Counseling Time: Greater than 50% of time spent with patient was for coordination of care (as documented) and [id number] counseling of patient and/or family. Dictated By: Fabiola Marinelli MD DD/ [id number] Signed By: <Electronically signed by MD Fabiola Marinelli> 03/05/20 [address] [facility] Work Phone: [phone]) 786-907504-03-2020 Progress note Author Silvestre Ahn [facility] February 03, 2020 4:28pmNote Date/TimeApril 2019 4:19pm[facility] [place] [address] Rad Onc Follow Up Note - OP Signed Patient: Mojgan Pérez MR#: [id number] : 1955 Acct:[id number] Age/Sex: 64 / F Type: REG RCR Copies to: MD Yinka Downey MD~ Subjective - Service Date/Time Date: 02/03/20 Time: 11:50 - Diagnosis Multiple myeloma - Chief Complaint I have pain all over but my main pain is in my left hip - History of Present Illness 69-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 Marinelli and she also has nonalcoholic steatohepatitis and pancytopenia (her platelets today are 54,000). She had been seen in the liver clinic and liver transplantation was considered but ultimately, it was felt that she is not a candidate for liver transplant. She was seen earlier this year by Dr. Marinelli after an episode of epistaxis which did not recur. She did not have any evidence of gingival bleeding, hematuria or rectal bleeding. Patient complainedof deep aches in the left hip and low back pain which had become more pronouncedover last several weeks. Her skeletal survey about 6 months ago had shown pronounced osteopenia and osteoarthritis but because of her increasing pains, Dr. Marinelli ordered a PET/CT scan which was done on 01/02/2020. The PET scan showedmultiple areas of abnormal radiotracer uptake including the calvarium, cervical spine, thoracic spine, lumbar spine and sacrum, there are also focal abnormal areas of radiotracer accumulation within the sternum, pelvis, proximal femurs and distal femoral shafts. These are suspicious for diffuse marrow replacing process consistent with her history of multiple myeloma. Her main complaint remains the left hip pain which causes her difficulty in ambulation. She has nocomplaints of fever, chills or night sweats, weight loss, headaches, nausea, peripheral lymphadenopathy, cough, hemoptysis, abdominal discomfort, urinary or bowel problems, vaginal bleeding or discharge, leg swelling, motor or sensory changes. Patient has a history of aortic aneurysm which has not been repaired due to her decreased platelet count. I had ordered her local x-rays of pelvis and bilateral femoral and patient came in today for review of the reports and planning of local palliative radiation therapy to her hips. She is also seeing Dr. Marinelli today. I've closely reviewed the patient's oncologic, medical, surgical, social, and family history. Changes noted above. I also reviewed the patient's medicationsvia reconciliation, as per the nursing record. - Review of Systems ROS: As per HPI. Objective Height 5 ft 2.99 in Weight 107.048 kg Temp 99.2 F H 02/03/20 10:40 Pulse 77 02/03/20 10:40 Resp 16 02/03/20 10:40 BP 146/79 H 02/03/20 10:40 Pulse Ox 96 02/03/20 10:40 Pain: 0/10 Emotional Needs Assessment: Emotional Needs Identified? No Karnofsky Performance Scale: 90%: Can perform normal activity, minor signs of disease Physical Exam: I examined her last week and she did not have a physical examination done today. Results CBC & Chem 7: 01/26/20 11:03 12/20/19 11:21 Kwem-2-Nykhwrhnecshq 1.9 mg/L (0.6-2.4) 12/07/18 16:14 Greso-3-Orqwntnpj 0.3 g/dL (0.0-0.4) 12/20/19 11:21 Nmocq-1-Uvmfqaibq 0.6 g/dL (0.4-1.0) 12/20/19 11:21 Beta Globulins 1.0 g/dL (0.7-1.3) 12/20/19 11:21 Impression: Multiple myeloma with wide bony disease and symptom of left hip pain. Assessment & Plan (1) Smoldering multiple myeloma (SMM) Plan: Patient's pain control remains adequate with 1-2 Percocets a day. Her x-rays ofthe pelvis and bilateral hips again showed subtle areas of lucency throughout the proximal femurs and additional subtle lytic lesions throughout the pelvis. Patient was informed regarding the results and I discussed her treatment plan with Dr. Marinelli today. Patient be receiving a single dose of 800 cGy to bilateral hips(Covid-19 accommodation) and upper femora and she will have her CT simulation done today. Her treatment will be delivered on 02/07/2020. Pros and cons of each therapy were discussed with her and informed consent was signedtoday. She will continue to follow-up closely with Dr. Marinelli. Total Time Spent with Patient: Less than 30 minutes More than 50% of time allotted to patient education, answering questions, and coordinating care. N.B: Voice-recognition software was used in the creation of this note. Efforts were made to detect and correct typographical and/or grammatical errors;please excuse them should you find any. Dictated By: Silvestre Ahn MD DD/ [id number] Signed By: <Electronically signed by Silvestre Ahn MD> 02/03/20 1628 [facility] Work Phone: [phone]) 107-970004-03-2020 Progress note Author Fabiola Marinelli [facility] February 03, 2020 4:01pmNote Date/TimeApr2019 10:43[facility] [place] [address] Hem/Onc Follow Up Note - OP Signed Patient: Mojgan Pérez MR#: [id number] : 1955 Acct:[id number] Age/Sex: 64 / F Type: REG RCR Copies to: MD Yinka Downey MD~ Subjective Date/Time of Service: Date of Service: 02/03/2020 Time of Service: 10:43 Chief Complaint: Patient is here to follow up with both medical and radition oncology today. HPI: Mojgan presents unaccompanied for follow-up of bone marrow aspiration and biopsy performed by Dr. 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 The patient had been noting increased left hip pain over the past several months and plain films of the pelvis and bilateral femurs did show subtle lucencies in the bilateral proximal femurs corresponding to PET/CT findings but no other additional sclerotic lesions identified. No pathologic fractures were seen. The patient has been followed by me for some time for diagnosis of smoldering myeloma with a prior bone marrow biopsy May 2017 showing 15% plasma cells but the patient remained asymptomatic without bone pain or other CRAB criteria for therapy. She is also noted to have an ascending aortic aneurysmand has chronicliver disease with cirrhosis secondary to nonalcoholic steatohepatitis. She haschronic thrombocytopenia without bleeding ranging from 50-100,000 this is felt to be due to sequestrationfrom her nonalcoholic steatohepatitis. She was previously on a liver transplant list but was recently notified that she is no longer a candidate for liver transplant. She has had chronic pain from fib romyalgia but noted increasing bilateral hip and upper thigh pain over the last 6 months. She also is followed for EGD/colonoscopy with last documented procedure 09/21/2018: 1. Normal EGD, 2. Mild sigmoid diverticulosis, 3. Internal hemorrhoids, grade 2, 4. Anal fissure with active bleeding cauterized by bipolar cautery Bone osseous survey in June 2019 showed osteopenia and degenerative changes but no lytic or blastic lesion. Patient had an F-18 PET scan 01/02/2020 which showed multiple areas of involvementof bones with increased SUV activity. She was contacted with these results by phone and I recommended bone marrow aspirate and biopsy for assessment and analysis. Her prior labs were reviewed. Her SPEP does not show anymonoclonal gammopathy. On VAHID there appears to be a trace of monoclonal gammopathy. Free light chain ratio is less than 100. There is no evidence of renal sufficiency. Patient is not anemic. She doeshave some abnormal areas on bone scan. --The patient's son was available by phone and her daughter was contacted in a separate phone call as patient presented unaccompanied due to COVID-19 precautions in our clinic during the current epidemic. Bone marrow biopsy results were reviewed as follows from procedure performed 01/26/2020: --Bone marrow biopsy was suboptimal for evaluation. --Increased lambda light chain restricted monoclonal plasma cells (1.9% by flow cytometry, approximately 6% and aspirate count, but 50% by immunohistochemical stains CD138). Sideroblastic iron present, negative for ring sideroblasts. Peripheral blood smear with mild red blood cell anisocytosis and polychromasia, leukopenia with absolute neutropenia (1000) and thrombocytopenia (54,000) consistent with prior baseline. Note: I discussed the results with Dr. Crook 01/26/2020. Preliminary findings were also discussed with Dr. Cummings 01/27/2020. Morphologic findings, immunohistochemical stains, flow cytometry, and ancillary studies may under represent the extent and severity of disease. The results of FISH myeloma panelwith prognostic markers and cytogenetic analysis are pending. --Given the patient's hip pain and presence of lytic lesions, she meets clinicalcriteria for activemyeloma. At this time given her hip pain and lytic lesions in weightbearing areas she has been offered radiation therapy. She will have a limited course of hypofractionated palliative therapy to bilateral proximal femurs as prescribed by Dr. Ahn. We discussed that given the COVID-19 epidemic and absence of other significant changes other than bony lesions (normal renal function, normal calcium,stable cytopenias), I will defer active therapy for myeloma for 4 to 6 weeks. Since she has significant history of liver disease I will discuss her case with Dr. Piter Benavidez at [facility] malignant hematology for optimal regimen. The patient is not a transplant candidate given her nonalcoholic steatohepatitis andchronic thrombocytopenia but may be a candidate for either doublet therapy (Revlimid/prednisone) or triplet therapy with either Velcade/Revlimid/prednison eor daratumumab/Revlimid/prednisone. I would not give the patient daratumumab during the current COVID-19 epidemic as any respiratory symptoms may be mistakenfor viral infection. The patient and her family members expressed understanding and will follow-up asdirected in 1 monthunless progression of symptoms warrant treatment sooner. This is a 64-year-old lady on chronic disability has a history of arthritis, diabetes mellitus, hypertension, COPD, GERD, and fibromyalgia who [facility] chronic mild to moderate thrombocytopenia. She states that she was followed with Dr. Kumari prior to his senior care and was told that she had an elevated protein level as well as thrombocytopenia but never had clinical bleeding. She is 4 para4 without complicationsand was never told that she was thrombocytopenic while . She is had multiple prior surgicalprocedures without any clinical bleeding. She had been recommended for a pain procedure with Dr. Wilson but he declined to do the procedure because her platelet count was less than 100,000. For this reason she received 2 platelet transfusions, with little improvement of her platelet count and her second transfusion resulted in throat tightening due to allergy to platelets . She has never beentreated with steroids and has never been told that she has immune thrombocytopenia. She has mild leukopenia with relative neutropenia, absolute neutrophil count of 400-800 and mild lymphocytosis. Hemoglobin is normal. She has not had any bright red blood per rectum or epistaxis. She has no history ofbleeding within the family however does have a mother and sister diagnosed with colon cancer, a brother diagnosed with lung cancer, and another sister diagnosedwith breast cancer. She had prior pain in the right hand mainly at the first MCP joint with some associated swelling and right foot pain and was evaluated by podiatry. She was told that her blood tests were negative forgout. She had screening with MALLORY, CCP, and rheumatoid factor all of which were negative. She says that she previously saw Dr. Petersen for cirrhosis but did not know of any specific therapy. We reviewed these findings from her liver ultrasound ordered by Dr. Beanvidez Summer 2016. Initial consultation with me March 16, 2017. - Summary of Therapies Summary of Therapies: 1. 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 2. Referred for palliative radiation therapy to bilateral proximal femurs due to increased pain/lytic lesions. Diagnosis of active myeloma. 3. Deferring active therapy for myeloma at least 1 month given COVID-19 epidemic with increased risk of myelosuppression and viral transmission of contacts. ROS Details: All systems reviewed & no additional complaints except as documented Subjective/ROS - Narrative: Constitutional: No Chills, No Diaphoresis, Fatigue (no change since last 04/14/2017), No Fever, No Malaise, No Night Sweats, No Weakness, No Weight Gain, No Weight Loss Gastrointestinal: No Abdominal Pain, No Black Stool, No Bloating, No Bloody Stool, No Constipation,No Diarrhea, No Dysphagia, No Hematemesis, No Nausea, NoPostprandial Pain, No Rectal Bleeding, No Rectal Pain, No Vomiting, Other (chronic gastroesophageal reflux stable) Cardiovascular: No Chest Pain, No Edema, No Palpitations, No Syncope Genitourinary: No Discharge, No Dysuria, No Flank Pain, Frequency (chronic andunchanged)No Hematuria, No Incontinence, No Nocturia, No Urgency, No Urinary Retention Musculoskeletal: + for recent bilateral hip/thigh pain--patient feels these symptoms are more pronounced over the last 6 months; positive for intermittent lumbar back Pain (chronic with pain radiating everywhere per prior outpatient visits), No Chest Wall Tenderness, Improvement of prior Joint Pain (right index MCP joint as per HPI above, right > left shoulder, right SI joint) Joint Swelling(right index MCP joint), Muscle Stiffness, Myalgia (history of fibromyalgia), No Neck Pain (reportsknown cervical disc disease) HEENT: No Blurred Vision, No Discharge, No Ear Pain, No Epistaxis, No Rhinorrhea, No Sore Throat--patient was seen in emergency department November 2019 with persistent epistaxis. She was treated withnasal clip and packing andwas advised to continue Afrin. No recurrent bleeding. Respiratory: No Cough, No Hemoptysis, No Shortness of Breath (chronic and unchanged due to COPD), No Sputum, No Wheezing Neurological: No Dizziness, + stable Numbness/Tingling (reports long-standing bilateral foot numbness), No Pre-existing Deficit (no history of stroke or seizure), intermittent headache--unremarkable skeletal survey June 2019, but evaluated with F-18 PET/CT showing progression of smoldering myeloma to active disease. Hematologic/Lymphatic: Positive for bleeding Easily due to known thrombocytopenia from sequestration, Bruises Easily, No Enlarged Lymph Nodes, Other(reports allergy to prior platelet transfusion) Endocrine: Excessive Sweating (hot flashes, postmenopausal) Flushing, No Intolerance to Cold, Intolerance to Heat Psychiatric: No Depressed Mood, No Insomnia Integumentary: No Jaundice, No Lesions, No Rash Allergic/Immunology: No Pruritus PMFSH - History Attestation statement: The following information was validated with the patient. - Medical History Medical History: Medical History (Last Reviewed 02/03/20 @ 15:45 by Fabiola Marinelli MD) Aortic aneurysm COPD (chronic obstructive pulmonary disease) Diabetes Fibromyalgia GERD (gastroesophageal reflux disease) H/O: hysterectomy Iron deficiency Neutropenia Smoldering multiple myeloma (SMM) Smoldering myeloma Temporary low platelet count - Surgical History Surgical History: Surgical History (Last Reviewed 02/03/20 @ 15:45 by Fabiola Marinelli MD) History of appendectomy History of cholecystectomy - Social History Smoking Status: Former smoker Tobacco Type: cigarettes Substance Use Type: None Social History Comments: [place] and granddaughter Home Medications & Allergies Allergies latex Allergy (Verified 04/18/19 11:57) Unknown Reaction moxifloxacin [From Avelox] Allergy (Verified 04/18/19 11:57) Hives Quinolones Allergy (Verified 04/18/19 11:57) Unknown Reaction tetracycline Allergy (Verified 04/18/19 11:57) Unknown Reaction Home Medications carvedilol 12.5 mg PO BID 11/20/17 [History Confirmed 01/26/20] duloxetine 60 mg PO DAILY 11/20/17 [History Confirmed 01/26/20] insulin detemir U-100 22 units SUB-Q QHS 11/20/17 [History Confirmed 01/26/20] oxycodone 10 mg PO TID PRN 11/20/17 [History Confirmed 01/26/20] Prilosec OTC 40 mg PO DAILY 11/24/17 [History Confirmed 01/26/20] albuterol sulfate 2 puff INHALATION Q6H PRN 11/24/17 [History Confirmed 01/26/20] fluticasone propion-salmeterol [Advair Diskus] 1 inh INHALATION Q12H PRN 11/24/17 [History Confirmed 01/26/20] cyanocobalamin (vitamin B-12) 1,000 mcg PO DAILY 09/15/18 [History Confirmed 01/26/20] cholecalciferol (vitamin D3) [Vitamin D3] 1,000 unit PO DAILY 04/13/19 [History Confirmed 01/26/20] Objective - Height/Weight Height/Weight: Height 5 ft 2.99 in Weight 107.048 kg - Vital Signs Vital Signs: 02/03/20 10:40 Temperature 99.2 F H Pulse Rate [Left Brachial] 77 Respiratory Rate 16 Blood Pressure [Left Arm] 146/79 H 02 Sat by Pulse Oximetry 96 - Pain Generalized Pain Intensity: 5 Bilateral Hip Pain Intensity: 5 Left Hip Pain Intensity: 7 Lower Back Pain Intensity: 7 Bilateral Leg Pain Intensity: 5 Bilateral Shoulder Pain Intensity: 6 - Emotional Needs Assessment Emotional Needs Assessment: Emotional Needs Identified? No - ECOG Performance Status ECOG Score: 1 Physical Exam Narrative: Patient is alert and oriented x3. HEENT exam is atraumatic normocephalic. No thyromegaly noted. Cardiovascular/lungs exam deferred, please see exam from Dr. Abel Cummings 01/26/2020. Patient is inno respiratory distress with normal chest inspection. Abdominal exam is also deferred. Here for review of results only. Skin shows no evidence petechia or purpura. Neurological exam is unremarkable, patient ambulates unassisted. Psychiatric exam is unremarkable for anxiety or depression. Results - Labs Labs: Diagram of Most Recent CBC and CMP 01/26/20 11:03 12/20/19 11:21 - Impressions PET/PET tumor subq tx strat wb IMPRESSION: Multiple focal areas of abnormal radiotracer accumulation throughout the calvarium, cervical spine,thoracic spine, lumbar spine, and sacrum. There are [...] be osteoarthritic in nature. Impression dictated by: Juan J Frazier M.D.01/02/2020 3:31 PM XR/XR pelvis 1-2V IMPRESSION:Subtle lytic lesions of the pelvis and proximal femurs corresponding with PET/CT findings. 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 Impression dictated by: Jorge Duffy M.D.01/31/2020 12:10 PM Assessment and Plan (1) Multiple myeloma Qualifiers: Multiple myeloma remission status: not in remission Qualified Code(s): C90.00 - Multiple myeloma not having achieved remission Mojgan previously had a diagnosis of monoclonal gammopathy of undetermined significance, but due to worsening of her thrombocytopenia without bleeding and chronic mild leukopenia without infection, further labs and bone marrow biopsy was performed in March 2017. --Diagnostic for smoldering myeloma (15% plasma cells by bone marrow biopsy 03/31/2017--[facility] review of this specimen notes 10% plasma cell involvement). She has high risk cytogenetics and I sent her for consultation with Dr. Piter Benavidez at [facility] in 2016. Her persistent thrombocytopenia made her ineligible for any clinical trials, and prevented her from receiving local pain procedures given her chronic low back pain. --05/2017 PET/CT images and reports performed for staging to exclude bone involvement with myeloma. 2 indeterminate areas of uptake thought to be degenerative arthritis vs early bone findings of myeloma (right parietooccipitalarea and upper sternum). She has remained asymptomatic [...] showed no lytic lesions and she has stableshoulder, hand, and right SI joint pain (although likely due to fibromyalgia. --Prior osseous survey 07/01/2019 showed osteopenia but no compression fractures or lytic lesions were identified. She had no significant change in myeloma labs(mild increase of urine M-spike, kappa/lambda ratio, and normal serum M- spike and quant immunoglobulins). Urine protein still undetectable, therefore will continue surveillance every 6 months with the same labs--no hypercalcemia, renaldysfunction (or proteinuria), anemia, or new bone symptoms. [...] palliative radiation to the bilateral femurs. She will receive a hypofractionated abbreviated course of radiation to minimize exposures during ID- epidemic. --The patient's most recent myeloma labs do show normal quantitative immunoglobulins with IgA lambda monoclonal protein by immunofixation (serum IgA is 272). Her kappa/lambda ratio shows a predominance of free lambda 479 with elevated free kappa 23.6 and abnormal free kappa/lambda ratio of 0.05. Urine immunofixation also shows lambda type Bence-Murray proteins with urine M spike 43.1 but total protein 34.4, with no reported urine creatinine. --At this time we will defer immunosuppressive chemotherapy for about 1 month and I will discuss her case with Dr. Piter Benavidez of malignant hematology, possibly presenting the patient in hematology tumor board at [facility]. She has baseline cirrhosis with chronic thrombocytopenia and I am attempting to treat her with the least myelosuppressive regimen, with deferral of therapy due to ID- epidemic. Patient does not have any current signs or symptoms of infection. This is a high complexity visit over 45 minutes for separate contact of other family members and discussion of bone marrow biopsy and treatment options. 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 I previously reviewed her outpatient records from [facility] [place], including review of notes, laboratories, and prior bone marrow biopsy 13 years ago. 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 Most recent platelet count is relatively stable at 54,000 but no clinical bleeding. She waspreviously referred to weight reduction clinic and may have slow improvement of steatohepatitis with lifestyle modification. Unless she has active bleeding or planned surgery, we will continue observation during treatment of active myelomato commence next month as noted above. --Agree with recommendation for EGD surveillance for varices (last was 09/2018--negative). This will be deferred during current COVID-19 epidemic. --Prior vitamin B12 and folic acid are normal, for known history of neuropathy. As noted above, I reviewed the negative M spike on serum protein electrophoresiswith immunofixation, but positive for Bence Murray protein on urine protein electrophoresis. Her Quantitative immunoglobulins IgG, IgA, and I gM were all within normal limits, however her serum kappa lambda light chain analysis showeda predominance of lambda light chains. --Previous labs for lupus anticoagulant with DRVVT, hexagonal phase phospholipid, anti-cardiolipin IgG and IgA, and beta 2 glycoprotein IgG and IgA were within normal limits. --Evaluated in ED November 2019 for epistaxis which resolved. Platelet count is stable at 12/28/2019 follow-up. She continues surveillance with liver clinic at [facility] and I will continue to follow her every 6 months, sooner if newbleeding issues arise. 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 She wasreferred to [facility] to attempt weight reduction through diet and exercise that may prevent further fatty infiltration that may further impairher liver function. [facility] hepatology discussed liver transplant but sheis likely no longer a candidate for this given active myeloma. We will discuss least hepatotoxic regimen for treatment of her active myeloma. (4) Neutropenia, unspecified Qualifiers: Neutropenia type: unspecified Qualified Code(s): D70.9 - Neutropenia, unspecified Stable mild neutropenia without infection (current ANC 1000--stable from prior values)--unlikely related to new diagnosis of active myeloma and no nutritional deficiency. Will continue to follow on her therapy for myeloma. Of note no dysplastic changes were noted on bone marrow biopsy. (5) Aneurysm of ascending aorta This has been present on prior exams, measured 4.1cm on most recent imaging 04/2019 and no indication for surgical management at this time. (6) Obesity Qualifiers: Body mass index: BMI 40.0-44.9 KAPADIA--continue f/u in weight reduction clinic. Defer to PCM. (7) Diabetes mellitus Qualifiers: Diabetes mellitus type: type 2 Diabetes mellitus complication status: without complication Stable diabetes control. She will likely require dexamethasone therapy and may require supplementalinsulin doses once we commence therapy. Will address at time of chemotherapy counseling in 4 to 6 weeks. - Chemo Plan Chemo Plan (Dose, Rate, Freq): Palliative radiation to commence next week, deferring active therapy for myelomafor at least 4 to 6weeks due to current COVID-19 epidemic. - Time with Patient Total Time Spent with Patient: 45 min Coordination of Care & Counseling Time: Greater than 50% of time spent with patient was for coordination of care (as documented) and [id number] counseling of patient and/or family. Dictated By: Fabiola Marinelli MD DD/ [id number] Signed By: <Electronically signed by MD Fabiola Marinelli> 02/03/20 [address] [facility] Work Phone: [phone] [phone] Consult note Author Silvestre Ahn [facility] January 26, 2020 5:29pmNote Date/TimeMar2019 4:55pm[facility] [place] [address] Rad Onc Consult Note - OP Signed Patient: Mojgan Pérez MR#: [id number] : 1955 Acct:[id number] Age/Sex: 64 / F Type: REG RCR Copies to: MD Yinka Downey MD James E Fanning, MD~ HPI - Service Date/Time Date: 01/26/20 Time: 16:55 Diagnosis: Multiple myeloma Chief Complaint: I have pain all over but my main pain is in my left hip HPI: 69-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 Marinelli and she also has nonalcoholic steatohepatitis and pancytopenia (her platelets today are 54,000). She had been seen in the liver clinic and liver transplantation was considered but ultimately, it was felt that she is not a candidate for liver transplant. She was seen earlier this year by Dr. Marinelli after an episode of epistaxis which did not recur. She did not have any evidence of gingival bleeding, hematuria or rectal bleeding. Patient complainedof deep aches in the left hip and low back pain which had become more pronouncedover last several weeks. Her skeletal survey about 6 months ago had shown pronounced osteopenia and osteoarthritis but because of her increasing pains, Dr. Marinelli ordered a PET/CT scan which was done on 01/02/2020. The PET scan showedmultiple areas of abnormal radiotracer uptake including the calvarium, cervical spine, thoracic spine, lumbar spine and sacrum, there are also focal abnormal areas of radiotracer accumulation within the sternum, pelvis, proximal femurs and distal femoral shafts. These are suspicious for diffuse marrow replacing process consistent with her history of multiple myeloma. Her main complaint remains the left hip pain which causes her difficulty in ambulation. She has nocomplaints of fever, chills or night sweats, weight loss, headaches, nausea, peripheral lymphadenopathy, cough, hemoptysis, abdominal discomfort, urinary or bowel problems, vaginal bleeding or discharge, leg swelling, motor or sensory changes. Patient has a history of aortic aneurysm which has not been repaired due to her decreased platelet count. She is undergoing a repeat bone marrow biopsy today by Dr. Cummings. [facility] - Medical History Medical History: Medical History (Last Reviewed 01/26/20 @ 17:16 by Silvestre Ahn MD) Aortic aneurysm COPD (chronic obstructive pulmonary disease) Diabetes Fibromyalgia GERD (gastroesophageal reflux disease) H/O: hysterectomy Iron deficiency Neutropenia Smoldering multiple myeloma (SMM) Smoldering myeloma Temporary low platelet count - Surgical History Surgical History: Surgical History (Last Reviewed 01/26/20 @ 17:16 by Silvestre Ahn MD) History of appendectomy History of cholecystectomy - Social History Smoking Status: Former smoker Tobacco Type: cigarettes Substance Use Type: None Social History Comments: [place] and granddaughter Home Medications & Allergies Allergies latex Allergy (Verified 04/18/19 11:57) Unknown Reaction moxifloxacin [From Avelox] Allergy (Verified 04/18/19 11:57) Hives Quinolones Allergy (Verified 04/18/19 11:57) Unknown Reaction tetracycline Allergy (Verified 04/18/19 11:57) Unknown Reaction Home Medications carvedilol 12.5 mg PO BID 11/20/17 [History Confirmed 01/26/20] duloxetine 60 mg PO DAILY 11/20/17 [History Confirmed 01/26/20] insulin detemir U-100 22 units SUB-Q QHS 11/20/17 [History Confirmed 01/26/20] oxycodone 10 mg PO TID PRN 11/20/17 [History Confirmed 01/26/20] Prilosec OTC 40 mg PO DAILY 11/24/17 [History Confirmed 01/26/20] albuterol sulfate 2 puff INHALATION Q6H PRN 11/24/17 [History Confirmed 01/26/20] fluticasone propion-salmeterol [Advair Diskus] 1 inh INHALATION Q12H PRN 11/24/17 [History Confirmed 01/26/20] cyanocobalamin (vitamin B-12) 1,000 mcg PO DAILY 09/15/18 [History Confirmed 01/26/20] cholecalciferol (vitamin D3) [Vitamin D3] 1,000 unit PO DAILY 04/13/19 [History Confirmed 01/26/20] Subjective ROS: I reviewed the 12-point Review of Systems with the patient as per our standard questionnaire. Objective Height 5 ft 2.99 in Weight 108 kg Temp 98.7 F 01/26/20 11:51 Pulse 77 01/26/20 11:51 Resp 20 01/26/20 11:51 BP 120/76 01/26/20 11:51 Pulse Ox 97 01/26/20 11:51 Pain: 0/10 Emotional Needs Assessment: Emotional Needs Identified? No Distress Screening Total 3 Karnofsky Performance Scale: 90%: Can perform normal activity, minor signs of disease Physical Exam: On physical examination today, she is slightly overweight, alert, oriented, pleasant female who does not appear to be in any acute distress. HEENT examination revealed no cranial neuropathy. No palpable cervical, supraclavicular or axillary lymphadenopathy. Her breasts were not examined to day. Lungs are clear to auscultation. Card examination is unremarkable. Shehas spinal tenderness inthe lower lumbar area. Her abdomen is soft, nontender and there is no palpable mass or organomegaly. Pelvic and rectal exam showed not done. Straight leg raising test is negative bilaterally. She hasno leg edema. She remains neurologically stable including her motor, sensory and cerebellar functions. Results CBC & Chem 7: 01/26/20 11:03 12/20/19 11:21 Cnob-6-Ebfbbopsmktlk 1.9 mg/L (0.6-2.4) 12/07/18 16:14 Ggxka-0-Uplrkrlan 0.3 g/dL (0.0-0.4) 12/20/19 11:21 Efupe-8-Tgkhjjliu 0.6 g/dL (0.4-1.0) 12/20/19 11:21 Beta Globulins 1.0 g/dL (0.7-1.3) 12/20/19 11:21 Impression: Multiple myeloma with extensive bony metastases Assessment & Plan (1) Smoldering multiple myeloma (SMM) Plan: Patient with history of smoldering multiple myeloma for many years now presents with extensive bonydisease on the recent PET CT scan and her bone marrow biopsyis being repeated today. She would likely be receiving systemic therapy and at this point, her main complaint remains left hip pain. I personally reviewed herPET/CT scan and I shall order x-rays of her pelvis and bilateral hips and femorito ensure the extent of her disease and evaluate her regarding any surgical intervention by the orthopedics if the lesions in the femurs are at risk for pathological fractures. Patient will return to see Dr. Cummings and myself on Thursday of next week and at that time, we shall have pathological reports of her bone marrow biopsy as well as radiological reports of her x-rays of the pelvis, femurs etc.A final recommendation regarding her palliative external radiotherapy to 1 or both hips will be made at that time. Pros and cons of radiation have been discussed with her and an informed consent willbe signed prior to initiation of any radiation therapy treatments. Patient pain control remains adequate on oral oxycodone 10 mg 3 times daily on an as needed basis. Total Time Spent with Patient: Greater than 30 minutes More than 50% of time allotted to patient education, answering questions, and coordinating care. N.B: Voice-recognition software was used in the creation of this note. Efforts were made to detect and correct typographical and/or grammatical errors;please excuse them should you find any. Dictated By: Silvestre Ahn MD DD/ [id number] Signed By: <Electronically signed by Silvestre Ahn MD> 01/26/20 [id number] [facility] Work Phone: [phone]) 407-730403-26-2020 Progress note Author Abel Cummings [facility] January 26, 2020 11:53amNote Date/TimeMarch 2019 11:51[facility] [place] [address] Hem/Onc Follow Up Note - OP Signed Patient: Mojgan Pérez MR#: [id number] : 1955 Acct:[id number] Age/Sex: 64 / F Type: REG RCR Copies to: MD Yinka Downey MD~ Subjective Date/Time of Service: Date of Service: 01/26/2020 Time of Service: 11:49 Chief Complaint: Patient is here for bone marrow biopsy and new radiation visit. HPI: Patient has a history of smoldering myeloma. Patient had a recent PET scan which showed multiple areas of involvement of bones with increased SUV activity. She is presenting today for bone marrow aspirate and biopsy for assessment and analysis. Her labs are reviewed. Her SPEP does not show any monoclonal gammopathy. On VAHID there appears to be a trace of monoclonal gammopathy. Free light chain ratio is less than 100. There is no evidence of renal sufficiency. Patient is not anemic. She does havesome abnormal areas on bone scan. Indications, risks of the procedure were reviewed. Potential complications are understood. Informedconsent was obtained. We will proceed with bone marrow biopsy today. ROS Details: All systems reviewed & no additional complaints except as documented PMFSH - Medical History Medical History: Medical History (Last Reviewed 12/28/19 @ 11:11 by Fabiola Marinelli MD) Aortic aneurysm COPD (chronic obstructive pulmonary disease) Diabetes Fibromyalgia GERD (gastroesophageal reflux disease) H/O: hysterectomy Iron deficiency Neutropenia Smoldering multiple myeloma (SMM) Smoldering myeloma Temporary low platelet count - Surgical History Surgical History: Surgical History (Last Reviewed 12/28/19 @ 11:11 by Fabiola Marinelli MD) History of appendectomy History of cholecystectomy - Social History Smoking Status: Former smoker Tobacco Type: cigarettes Substance Use Type: None Social History Comments: lives [facility] with son and granddaughter Home Medications & Allergies Allergies latex Allergy (Verified 04/18/19 11:57) Unknown Reaction moxifloxacin [From Avelox] Allergy (Verified 04/18/19 11:57) Hives Quinolones Allergy (Verified 04/18/19 11:57) Unknown Reaction tetracycline Allergy (Verified 04/18/19 11:57) Unknown Reaction Home Medications carvedilol 12.5 mg PO BID 11/20/17 [History Confirmed 01/26/20] duloxetine 60 mg PO DAILY 11/20/17 [History Confirmed 01/26/20] insulin detemir U-100 22 units SUB-Q QHS 11/20/17 [History Confirmed 01/26/20] oxycodone 10 mg PO TID PRN 11/20/17 [History Confirmed 01/26/20] Prilosec OTC 40 mg PO DAILY 11/24/17 [History Confirmed 01/26/20] albuterol sulfate 2 puff INHALATION Q6H PRN 11/24/17 [History Confirmed 01/26/20] fluticasone propion-salmeterol [Advair Diskus] 1 inh INHALATION Q12H PRN 11/24/17 [History Confirmed 01/26/20] cyanocobalamin (vitamin B-12) 1,000 mcg PO DAILY 09/15/18 [History Confirmed 01/26/20] cholecalciferol (vitamin D3) [Vitamin D3] 1,000 unit PO DAILY 04/13/19 [History Confirmed 01/26/20] Objective - Height/Weight Height/Weight: Height 5 ft 2.99 in Weight 108 kg - Vital Signs Vital Signs: 01/26/20 11:09 Temperature 98.8 F Pulse Rate [Left Brachial] 80 Respiratory Rate 20 Blood Pressure [Left Arm] 118/72 02 Sat by Pulse Oximetry 95 - Pain Generalized Pain Intensity: 5 Bilateral Hip Pain Intensity: 5 Left Hip Pain Intensity: 7 Lower Back Pain Intensity: 7 Bilateral Leg Pain Intensity: 5 Bilateral Shoulder Pain Intensity: 6 - Emotional Needs Assessment Emotional Needs Assessment: Emotional Needs Identified? No Distress Screening Total 3 - ECOG Performance Status ECOG Score: 1 Physical Exam Narrative: Patient is alert and oriented x3. HEENT exam is atraumatic normocephalic. No JVD. No thyromegaly. Lungs with good air exchange. Endocrinologic exam is negative. Skin shows no evidence petechia or purpura. Neurological exam is negative. Psychiatric exam is negative. Results - Labs Labs: Diagram of Most Recent CBC and CMP 01/26/20 11:03 12/20/19 11:21 Labs - Last 7 Days 01/26/20 11:03: WBC 3.5 L, Corrected WBC 3.5 L, RBC 4.01, Hgb 11.8, Hct 35.3, MCV 88.1, MCH 29.4, MCHC 33.4, RDW 15.6 H, Plt Count 54 L, MPV 8.1, Neut % (Auto) 30.3, Lymph % (Auto) 55.7, Hodgeman % (Auto) 9.1, Eos % (Auto) 4.6, Baso % (Auto) 0.3, Neut # (Auto) 1.0 L, Lymph # (Auto) 1.9, Hodgeman # (Auto) 0.3, Eos # (Auto) 0.2, Baso # (Auto) 0.0, Nucleated RBC % (auto) 0.0 Assessment and Plan (1) Smoldering multiple myeloma (SMM) Indications and risk of bone marrow biopsy and aspirate are understood. The patient consents to bone marrow aspirate and biopsy. We will have her return in clinic next week for follow-up. 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 Dictated By: Abel Cummings MD DD/ [id number] Signed By: <Electronically signed by MD Abel Cummings> 01/26/20 1153 [facility] Work Phone: 1(802) 753-306103-26-2020 [facility] Procedure [facility]03-02-2020 Progress note Author Fabiola Marinelli [facility] January 02, 2020 3:53pmNote Date/TimeFebruary 2019 11:11[facility] [place] [address] Hem/Onc Follow Up Note - OP Signed with Addenda Patient: Mojgan Pérez MR#: [id number] : 1955 Acct:[id number] Age/Sex: 64 / F Type: REG RCR Copies to: Yinka Lopez MD~ ADDENDUM1 Patient was contacted with PET/CT from 01/02/2020 showing multiple areas of increased radio tracer accumulation with report noted below. I informed her this would be an indication to perform another bone marrow biopsy which we will set up in the next 3 weeks as I will be out of the area. I offered toset this up with my partner Dr. Subramanian but she would like to wait until I return. We will put her on the schedule for bone marrow biopsy and then discuss potential options for therapy. Increased level of complexity to high complexity due to follow-up phone call with results. Change diagnosis to multiple myeloma ICD-10 C90.00, cancer-related pain ICD-10 G89.3 PET/PET tumor subq tx strat wb IMPRESSION: Multiple focal areas of abnormal radiotracer accumulation throughout the calvarium, cervical spine,thoracic spine, lumbar spine, and sacrum. There are [...] be osteoarthritic in nature. Impression dictated by: Juan J Frazier M.D.01/02/2020 3:31 PM Addendum Dictated By: MD Fabiola Marinelli Addendum Signed By: 01/02/201552 Addendum Cosigned By: DD/ /22/1552 TD/TT: 01/02/2012/22/1552 Subjective Date/Time of Service: Date of Service: 12/28/2019 Time of Service: 11:10 Chief Complaint: Patient is here for six month follow up history of MGUS with lab work for review. Patient complains of generalized aches that feel deep. HPI: Here for 6 month followup of smoldering myeloma (15% plasma cells by bone marrowbiopsy 05/2017). Jakhadra she was seen at liver clinic and indications for liver transplantation were discussed and sheis not felt to require liver transplant at this time. She has stable pancytopenia related to her nonalcoholic steatohepatitis. She was seen about 1 month ago for persistent epistaxis but has not had any recurrent episodes since this time. We reviewed her counts and platelet count is 57,000 which isstable. No other sites of bleeding such as gingival bleeding bright red blood per rectum or hematuria. She does note that she has deep aches in the right greater than left hip and lowback that have se emed more pronounced over the last month. We reviewed her skeletal survey ordered 6 months ago which showed generalized osteopenia and osteoarthritis, however given her increased pain complaints I amrecommending F-18 PET/CT to evaluate for her recent increased pain and determine if bone biopsyis required to document any bony disease which would be concerning for progression to active myeloma. She will be contacted with results of F-18 PET/CT and determine if biopsy is required at that time. --If no evidence of recurrence on PET/CT, we will continue to follow with myeloma labs every 6 months. The patient is accompanied by her daughter who expressed understanding of this counseling. Previously seen at [facility]--noted to have ascending aortic aneurysm (this was discussed atprior visit, she does not recall). No indication for surgery or stent at this time. She was also advised to have EGD for potential banding of varices due to her cirrhosis. She was nervous to do this without my approval given her low platelets, but I reassured her that this will prevent serious bleeding in the future. No reported melena or BRBPR and no apparent worsening of known cirrhosis. Her physician at [facility] requested second pathology review there of bone marrow biopsy from 03/31/2017--consistent with prior diagnosis of smolderingmyeloma. No recent infections, bleeding orchange in chronic pain from fibromyalgia. Bilateral shoulder discomfort stable from baseline, but she does note recent daily headaches, bilateral hip and upper thigh pain, although no increase in pain medication or decreased ambulation or activities. Stable bilateral knee pain from osteoarthritis. Bowels stable, no abdominal pain, no change in appetite. Previous testing for lupus anticoagulant normal--no historyof thrombosis. Most recent EGD/Colonoscopy was 09/2018: 1. normal EGD, 2. mild sigmoid diverticulosis, 3. internalhemorrhoids, grade II, 4. anal fissure with activebleeding, cauterized with bipolar cautery This is a 64-year-old lady on chronic disability has a history of arthritis, diabetes mellitus, hypertension, COPD, GERD, and fibromyalgia [facility]. She states that she was followed with Dr. Kumari prior to his senior care and was told that she had an elevated protein level as well as thrombocytopenia but never had clinical bleeding. She is 4 para4 without complicationsand was never told that she was thrombocytopenic while . She is had multiple prior surgicalprocedures without any clinical bleeding. She had been recommended for a pain procedure with Dr. Wilson about one year ago and he declined to do the procedure because her platelet count was less than 100,000. For this reason she received 2 platelet transfusions, with little improvement of her platelet count and her second transfusion resulted in throat tightening due to allergy to platelets . Radhahas never been treated with steroids and has never been told that she has immunethrombocytopenia. She has mild leukopenia with relative neutropenia, absolute neutrophil count of 400-800 and mild lymphocytosis. Hemoglobin is normal. She has not had any bright red blood per rectum or epistaxis. She has no history ofbleeding within the family however does have a mother and sister diagnosed with colon cancer, a brother diagnosed with lung cancer, and another sister diagnosedwith breast cancer. She had prior pain in the right hand mainly at the first MCP joint with some associated swelling and right foot pain and was evaluated by podiatry. She was told that her blood tests were negative forgout. She had screening with MALLORY, CCP, and rheumatoid factor all of which were negative. She says that about 2 years ago she saw Dr. Petersen for cirrhosis but did not know of any specific therapy. Wereviewed these findings from her liver ultrasound ordered by Dr. Benavidez Summer 2016. Initial consultation with me March 16, 2017. 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 ROS Details: All systems reviewed & no additional complaints except as documented Subjective/ROS - Narrative: Constitutional: No Chills, No Diaphoresis, Fatigue (no change since last 04/14/2017), No Fever, No Malaise, No Night Sweats, No Weakness, No Weight Gain, No Weight Loss Gastrointestinal: No Abdominal Pain, No Black Stool, No Bloating, No Bloody Stool, No Constipation,No Diarrhea, No Dysphagia, No Hematemesis, No Nausea, NoPostprandial Pain, No Rectal Bleeding, No Rectal Pain, No Vomiting, Other (chronic gastroesophageal reflux stable) Cardiovascular: No Chest Pain, No Edema, No Palpitations, No Syncope Genitourinary: No Discharge, No Dysuria, No Flank Pain, Frequency (chronic andunchanged)No Hematuria, No Incontinence, No Nocturia, No Urgency, No Urinary Retention Musculoskeletal: + for recent bilateral hip/thigh pain--patient feels these symptoms are more pronounced over the last month; positive for intermittent lumbar back Pain (chronic with pain radiating everywhere per prior outpatient visits), No Chest Wall Tenderness, Improvement of prior Joint Pain (right index MCP joint as per HPI above, right > left shoulder, right SI joint) Joint Swelling (right index MCP joint), Muscle Stiffness, Myalgia (history of fibromyalgia), No Neck Pain (reports known cervical disc disease) HEENT: No Blurred Vision, No Discharge, No Ear Pain, No Epistaxis, No Rhinorrhea, No Sore Throat--patient was seen in emergency department November 20 with persistent epistaxis. She was treated with nasal clip and packing and was advised to continue Afrin. No recurrent bleeding in the past month. Respiratory: No Cough, No Hemoptysis, No Shortness of Breath (chronic and unchanged due to COPD), No Sputum, No Wheezing Neurological: No Dizziness, + stable Numbness/Tingling (reports long-standing bilateral foot numbness), No Pre-existing Deficit (no history of stroke or seizure), Recent daily headache--unremarkable skeletal survey June 2019, but will evaluate with F-18 PET/CT to exclude progression of smolderingmyeloma to active disease. If bone lesions identified she will require biopsy. Hematologic/Lymphatic: Positive for bleeding Easily due to known thrombocytopenia from sequestration, Bruises Easily, No Enlarged Lymph Nodes, Other (reports allergy to prior platelet transfusion) Endocrine: Excessive Sweating (hot flashes, postmenopausal) Flushing, No Intolerance to Cold, Intolerance to Heat Psychiatric: No Depressed Mood, No Insomnia Integumentary: No Jaundice, No Lesions, No Rash Allergic/Immunology: No Pruritus PMFSH - History Attestation statement: The following information was validated with the patient. Source: Old Records Reviewed - Medical History Medical History: Medical History (Last Reviewed 12/28/19 @ 11:11 by Fabiola Marinelli MD) Aortic aneurysm COPD (chronic obstructive pulmonary disease) Diabetes Fibromyalgia GERD (gastroesophageal reflux disease) H/O: hysterectomy Iron deficiency Neutropenia Smoldering multiple myeloma (SMM) Smoldering myeloma Temporary low platelet count - Surgical History Surgical History: Surgical History (Last Reviewed 12/28/19 @ 11:11 by Fabiola Marinelli MD) History of appendectomy History of cholecystectomy - Social History Smoking Status: Former smoker Tobacco Type: cigarettes Substance Use Type: None Social History Comments[place] Home Medications & Allergies Allergies latex Allergy (Verified 04/18/19 11:57) Unknown Reaction moxifloxacin [From Avelox] Allergy (Verified 04/18/19 11:57) Hives Quinolones Allergy (Verified 04/18/19 11:57) Unknown Reaction tetracycline Allergy (Verified 04/18/19 11:57) Unknown Reaction Home Medications carvedilol 12.5 mg PO BID 11/20/17 [History Confirmed 12/28/19] duloxetine 60 mg PO DAILY 11/20/17 [History Confirmed 12/28/19] insulin detemir U-100 22 units SUB-Q QHS 11/20/17 [History Confirmed 12/28/19] oxycodone 10 mg PO TID PRN 11/20/17 [History Confirmed 12/28/19] Prilosec OTC 40 mg PO DAILY 11/24/17 [History Confirmed 12/28/19] albuterol sulfate 2 puff INHALATION Q6H PRN 11/24/17 [History Confirmed 12/28/19] fluticasone propion-salmeterol [Advair Diskus] 1 inh INHALATION Q12H PRN 11/24/17 [History Confirmed 12/28/19] cyanocobalamin (vitamin B-12) 1,000 mcg PO DAILY 09/15/18 [History Confirmed 12/28/19] cholecalciferol (vitamin D3) [Vitamin D3] 1,000 unit PO DAILY 04/13/19 [History Confirmed 12/28/19] Objective - Height/Weight Height/Weight: Height 5 ft 2.99 in Weight 106.7 kg - Vital Signs Vital Signs: 12/28/19 11:05 Temperature 98.2 F Pulse Rate [Left Brachial] 77 Respiratory Rate 20 Blood Pressure [Left Arm] 135/79 02 Sat by Pulse Oximetry 97 - Pain Generalized Pain Intensity: 5 Bilateral Hip Pain Intensity: 5 Bilateral Leg Pain Intensity: 5 Bilateral Shoulder Pain Intensity: 6 - Emotional Needs Assessment Emotional Needs Assessment: Emotional Needs Identified? Yes Distress Screening Total 3 Expressed/Other Feelings worried about lab work Comment - ECOG Performance Status ECOG Score: 1 Physical Exam Narrative: CONSTITUTIONAL: The patient is in no acute distress. HEAD / FACE: Normocephalic. No tenderness to palpation over scalp, no sinus tenderness to palpation. EYES: Pupils are equal and reactive to light. Conjunctivae and lids are benign in appearance. Ocular movement intact. EARS: Hearing grossly intact. NOSE / MOUTH / THROAT: Nose, mouth, tongue and oropharynx are benign in appearance. No signs of inflammation. NECK / THYROID: Neck is supple. Thyroid is symmetrical, without thyromegaly, masses or palpable nodules. LYMPHATIC: No palpable cervical, supraclavicular, axillary, or inguinal adenopathy. RESPIRATORY: Normal to inspection. Lungs clear to auscultation and percussion. No wheezing, rales, rhonchi or rubs. Normal effort. CARDIOVASCULAR: Regular rate and rhythm. No murmurs, gallops, or rubs. VASCULAR: Carotid, radial, femoral and pedal pulses present bilaterally. No bruits. ABDOMEN: Bowel sounds normoactive. Soft, nontender and non-distended. No hepatosplenomegaly. No masses. GENITOURINARY: No CVA tenderness. No suprapubic fullness or tenderness. No groinadenopathy. No evidence of hernias. INTEGUMENTARY: The skin is unremarkable. No rashes. No suspicious lesions. No bruising or petechiaenoted. BACK / SPINE: The back is nontender to percussion over vertebral bodies or SI joints. No step off deformity. MUSCULOSKELETAL: Normal musculature, no joint deformities or abnormalities, normal range of motion for all four extremities. EXTREMITIES: No edema, cyanosis or clubbing. No Destini sign. NEUROLOGICAL: Alert and oriented. Cranial nerves intact. No gross motor or sensory deficits. PSYCHIATRIC: No anxiety or evidence of depression. Results - Labs Labs: Diagram of Most Recent CBC and CMP 12/20/19 11:21 12/20/19 11:21 Labs - Last 7 Days 12/20/19 11:25: Ur Random Albumin 20.1, U Random Total Protein 34.4, U Chtxh-3-Vgcpfsuj (%) 2.5, U Random s-5-Vhuvpwxg % 7.5, U Random b-Globulin % 19.2, U Random Gamma Glob % 50.7, U Random M-Jaspal (%) 43.1 H, Urine Random PEP Note , Urine Immunofixation 12/20/19 11:21: Serum Total Protein 6.1, Albumin (Send Out) 3.1, Globulin (PEP) 3.0, Albumin/Globulin (PEP) 1.0, Lpkeh-8-Cdiuedojk 0.3, Byozf-4-Htxsfbsoe 0.6, Beta Globulins 1.0, Gamma Globulins 1.1,M-Jaspal Not observed, PEP Note , IgG 1171, IgA 272, IgM 52, Serum Immunofixation , Free [place] LC, Quant 23.6 H, Free Lambda LC, Quant 479.4 H, Free [place]/Lambda Ratio 0.05 L - Impressions Date of Service: 07/01/19 XR/XR bone survey: [...] lesion identified. Moderate atherosclerosis is seen. No ac utecardiopulmonary findings are intra-abdominal abnormality seen. XR/XR bone survey IMPRESSION: Osteopenia and degenerative changes. No lytic or blastic lesion. Impression dictated by: Jorge Duffy M.D.07/01/2019 3:41 PM Assessment and Plan (1) Smoldering multiple myeloma (SMM) She previously had a diagnosis of monoclonal gammopathy of undetermined significance, but due to worsening of her thrombocytopenia without bleeding and chronic mild leukopenia without infection, further labs and bone marrow biopsy was performed in March 2017. --Diagnostic for smoldering myeloma (15% plasma cells by bone marrow biopsy 03/31/2017--[facility] review of this specimen notes 10% plasma cell involvement). She has high risk cytogenetics and I sent her for consultation with Dr. Piter Benavidez at [facility] in 2016. Her persistent thrombocytopenia made her ineligible for any clinical trials, and prevented her from receiving local pain procedures given her chronic low back pain. --05/2017 PET/CT images and reports performed for staging to exclude bone involvement with myeloma. 2 indeterminate areas of uptake thought to be degenerativearthritis vs early bone findings of myeloma (right [...] showed no lytic lesions and she has stableshoulder, hand, and right SI joint pain (although likely due to fibromyalgia. --Current myeloma labs show mild increase of urine M-spike, kappa/lambda ratio, and normal serum M-spike and quant immunoglobulins. Urine protein is still undetectable, therefore will continue surveillance every 6 months with the same labs--no hypercalcemia, renal dysfunction (or proteinuria), anemia, or new bone symptoms. --She was last seen in June 2019 and at that time reported recent headaches and hip/thigh pain--agrees to skeletal survey which showed only osteopenia and degenerative changes of the spine. She continues to have these complaints at 12/28/2019 follow-up. We will proceed with further evaluation withPET/CT F-18 for bony disease. If increased F-18 uptake is seen in areas correlating to her area of pain, this would be an indication for bone biopsy to determine if plasmacytoma present in those areas and repeat bone marrow biopsy and possible treatment for active myeloma. If she does not have any abnormalities of F-18 PET/CT, we will continue her follow-up at six-month intervals. She expressed un derstanding over this 30 minute f/u visit. She agrees to follow in 6 months with the same myeloma labs--Will return sooner for f/u if worsening/new chronic pain symptoms. 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 I previously reviewed her outpatient records from [facility] [place], including review of notes, laboratories, and prior bone marrow biopsy 13 years ago. 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 Most recent platelet count is relatively stable at 57,000 but no clinical bleeding. She waspreviously referred to weight reduction clinic and may have slow improvement of steatohepatitis with lifestyle modification. Unless she has active bleeding or planned surgery, we will continue observation with follow at every 6 month f/u visits. --Agree with recommendation for EGD surveillance for varices (last was 09/2018--negative). --Prior vitamin B12 and folic acid are normal, for known history of neuropathy. As noted above, I reviewed the negative M spike on serum protein electrophoresiswith immunofixation, but positive for Bence Murray protein on urine protein electrophoresis. Her Quantitative immunoglobulins IgG, IgA, and I gM were all within normal limits, however her serum kappa lambda light chain analysis showeda predominance of lambda light chains. --Previous labs for lupus anticoagulant with DRVVT, hexagonal phase phospholipid, anti-cardiolipin IgG and IgA, and beta 2 glycoprotein IgG and IgA were within normal limits. --Evaluated in ED November 2019 for epistaxis which resolved. Platelet count is stable at 12/28/2019 follow-up. She continues surveillance with liver clinic at [facility] and I will continue to follow her every 6 months, sooner if newbleeding issues arise. 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 She wasreferred to [facility] to attempt weight reduction through diet and exercise that may prevent further fatty infiltration that may further impairher liver function. [facility] hepatology discussed liver transplant but currently she does not have any indications for this. Continue to follow CMP at6 month f/u visit. (4) Neutropenia, unspecified Qualifiers: Neutropenia type: unspecified Qualified Code(s): D70.9 - Neutropenia, unspecified Stable mild neutropenia without infection (current ANC 900--stable from prior values)--unlikely related to smoldering myeloma and no nutritional deficiency. Will continue to follow with every 6 monthCBC. (5) Aneurysm of ascending aorta This has been present on prior exams, measured 4.1cm on most recent imaging 04/2019 and no indication for surgical management at this time. (6) Obesity Qualifiers: Body mass index: BMI 40.0-44.9 KAPADIA--continue f/u in weight reduction clinic. Defer to PCM. (7) Fibromyalgia Continue f/u with primary physician. New bilateral hip/thigh pain: prior negative skeletal survey 05/2018, ordered f/u skeletal survey today 06/21/2019 which showed osteopenia but no obvious lytic lesions. Arranging F-18 PET/CT as noted above and will contact with results. (8) Diabetes mellitus Qualifiers: Diabetes mellitus type: type 2 Diabetes mellitus complication status: without complication Stable diabetes control. Defer to PCM. - Chemo Plan Chemo Plan (Dose, Rate, Freq): observation of smoldering myeloma weight management clinic referral for nonalcoholic steatohepatitis ferrous sulfate for iron deficiency on bone marrow biopsy--stopped 11/2017. - Time with Patient Total Time Spent with Patient: 30 min Coordination of Care & Counseling Time: Greater than 50% of time spent with patient was for coordination of care (as documented) and [id number] counseling of patient and/or family. Dictated By: Fabiola Marinelli MD DD/ [id number] Signed By: <Electronically signed by MD Fabiola Marinelli> 12/28/19 1313 [facility] Work Phone: [phone]) 369-244811-10-2019 Progress note Author Vicente Linton [facility] January 29, 2023 6:23pmNote Date/TimeMarch 2022 2:[place] [address] Hospitalist Progress Note Signed with Addenda Patient: Mojgan Pérez MR#: [id number] : 1955 Acct:[id number] Age/Sex: 67 / F Adm Date: 3 Loc: Room: [address] [place] [address] Type: DIS IN Attending Dr: Vicente Linton DO Copies to: ~ ADDENDUM1 General: Awake alert, friend at bedside HEENT: head atraumatic, normocephalic, moist mucous membranes, normal nose and ears, no throat lesions, normal conjunctiva Neck: supple no masses, no lymphadenopathy CVS: regular rate and rhythm, no murmurs or gallops Respiratory: clear to auscultation bilaterally, no wheezing or crackles, symmetric expansion GI: soft, nondistended, nontender, positive bowel sounds with no organomegaly. suprapubic tenderness to palpation. Extremity: moves all extremities, no restrictions of movements, no calf tenderness, no edema Neuro: AOx3, CN II-VII intact. Moves all extremities in all planes of motion. Skin: dry, intact no rashes or lesions Addendum Documented By: Vicente Linton DO 01/29/231822 Addendum Signed By: <Electronically signed by Vicente Linton DO> 01/29/231822 Date of Service: 01/28/2023 Subjective Subjective Narrative: Seen evaluated bedside, family present at bedside as well. Patient states she is feeling better, the pain with urination is decreasing from yesterday. Exam Physical Exam Vital Signs: Temp Pulse Resp BP Pulse Ox O2 Del Method 98.2 F 83 16 145/79 H 96 Room Air 01/28/23 08:00 01/28/23 12:00 01/28/23 12:00 01/28/23 12:00 01/28/23 12:00 01/28/23 12:00 Objective Lab Results 01/28/23 01:10 01/28/23 01:10 Meds Allergies and Active Meds Allergies erythromycin base [From E-Mycin] Allergy (Verified 01/28/23 06:28) Hives latex Allergy (Verified 01/28/23 00:22) Unknown Reaction moxifloxacin [From Avelox] Allergy (Verified 01/28/23 00:22) Hives Quinolones Allergy (Verified 01/28/23 00:22) Unknown Reaction tetracycline Allergy (Verified 01/28/23 00:22) Unknown Reaction Active Meds: Active Medications Generic Name Dose Route Start Last Admin Trade Name Freq PRN Reason Stop Dose Admin Acetaminophen 650 mg 01/28/23 05:52 01/28/23 06:56 Acetaminophen 325 Mg Tablet PO 01/28/24 05:51 650 mg Q6HR PRN Administration Pain Scale 1 - 3 or fever Acyclovir 400 mg 01/28/23 09:00 01/28/23 08:55 Acyclovir 400 Mg Tablet PO 400 mg BID WALLACE Administration Alteplase, Recombinant 2 mg 01/28/23 11:28 Alteplase 2 Mg Vial INTRACATH ONCE PRN Occlusion Azithromycin 250 mg 01/28/23 09:00 01/28/23 08:55 Azithromycin 250 Mg Tablet PO 01/31/23 08:59 250 mg DAILY WALLACE Administration Carvedilol 12.5 mg 01/28/23 09:00 01/28/23 08:55 Carvedilol 12.5 Mg Tablet PO 01/28/24 08:59 12.5 mg BID.WITH.MEALS WALLACE Administration Ceftriaxone Sodium 1 gm in 50 mls @ 100 mls/hr 01/29/23 04:00 Rocephin IV Q24H WALLACE Lactulose 20 gm 01/28/23 08:29 Lactulose 20 Gm/30 Ml Udc PO 01/28/24 08:28 BID PRN Constipation Pantoprazole Sodium 40 mg 01/28/23 09:00 01/28/23 09:26 Pantoprazole 40 Mg Tablet.Dr PO 01/28/24 08:59 40 mg BID WALLACE Administration Phenazopyridine HCl 200 mg 01/28/23 05:52 Phenazopyridine 100 Mg Tablet PO TID PRN Pain Potassium Chloride 20 meq 01/28/23 05:52 01/28/23 08:55 Potassium Chloride Er 20 Meq Tab.Er.Prt PO 01/28/24 05:51 20 meq DAILY PRN Administration Hypokalemia Potassium Chloride 40 meq 01/28/23 05:52 Potassium Chloride Er 20 Meq Tab.Er.Prt PO 01/28/24 05:51 DAILY PRN Hypokalemia Potassium Chloride 10 meq 01/28/23 09:00 01/28/23 09:26 Potassium Chloride Er 10 Meq Capsule.Er PO 01/28/24 08:59 10 meq DAILY WALLACE Administration Sodium Chloride 0 ml 01/28/23 00:22 01/28/23 01:07 Sodium Chloride 0.9 % 10 Ml Syringe IV-PUSH 01/28/24 00:21 10 ml PRN PRN Administration Flush Sodium Chloride 0 ml 01/28/23 06:00 01/28/23 08:55 Sodium Chloride 0.9 % 10 Ml Syringe IV-PUSH 01/28/24 05:59 10 ml QSHIFT WALLACE Administration Sterile Water 2.2 ml 01/28/23 11:28 Water For Injection,Sterile 10 Ml Vial INJECTION 01/28/24 11:27 PRN PRN To Dilute Cathflo A&P - Hospitalist Assessment/Plan (1) UTI (urinary tract infection): (2) Hematuria: (3) Diabetes mellitus: (4) Fibromyalgia: (5) 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 This is a medically critical situation because she is on treatment for multiple myelomaand has pancytopenia and thrombocytopenia at baseline anyway. She also has a history of cirrhosis and KAPADIA. For this reason inpatient status is necessary. She will receive IV Rocephin. She is at highrisk for bacteremia. She will need to be monitored for resolution of hematuria and awaiting the urine culture and sensitivity results. Plan: Admit to the hospital. Inpatient status. Continue IV Rocephin. Check labs daily. Consult hematology/oncology regarding her thrombocytopenia. Her thrombocytopenia is stable Monitor urine output for resolution of hematuria Cultures pending so far, blood and urine Documented By: Vicente Linton DO 01/28/23 1441 Signed By: <Electronically signed by Vicente Linton, > 01/28/23 1445 [facility] Work Phone: [phone]) 171-521908-26-2019 Progress note Author Fabiola Marinelli [facility] June 27, 2019 7:18pmNote Date/TimeAugust 2018 11:24[facility] [place] [address] Hem/Onc Follow Up Note - OP Signed Patient: Mojgan Pérez MR#: [id number] : 1955 Acct:[id number] Age/Sex: 63 / F Type: REG RCR Copies to: Yinka Lopez MD~ Subjective Date/Time of Service: Date of Service: 06/27/2019 Time of Service: 11:23 Chief Complaint: Patient is here for six month follow up for smoldering myeloma lab work for review, patient has had aortic anerysm since last visit (not deemedcandidate for repair at this time). Patient is scheduled for EGD and wants to know Dr Marinelli's opinion. HPI: Here for 6 month followup of smoldering myeloma (15% plasma cells by bone marrowbiopsy 05/2017). Seen at [facility]--noted to have ascending aortic aneurysm (this was discussed at prior visit, she does not recall). No indication for surgery or stent at this time. She was also advised to have EGD for potential banding of varices due to her cirrhosis. She was nervous to do this without my approval given her low platelets, but I reassured her that this will prevent serious bleeding in the future. No reported melena or BRBPR and noapparent worsening of known cirrhosis. Her physician at [facility] requested second pathology review there of bone marrow biopsy from 03/31/2017--consistent with prior diagnosis of smolderingmyeloma. No recent infections, bleeding orchange in chronic pain from fibromyalgia. Bilateral shoulder discomfort stable from baseline, but she does note recent daily headaches, bilateral hip and upper thigh pain, although no increase in pain medication or decreased ambulation or activities. Stable bilateral knee pain from osteoarthritis. Bowels stable, no abdominal pain, no change in appetite. Previous testing for lupus anticoagulant normal--no historyof thrombosis. Most recent EGD/Colonoscopy was 09/2018: 1. normal EGD, 2. mild sigmoid diverticulosis, 3. internalhemorrhoids, grade II, 4. anal fissure with activebleeding, cauterized with bipolar cautery This is a 63-year-old lady on chronic disability has a history of arthritis, diabetes mellitus, hypertension, COPD, GERD, and fibromyalgia who was previouslyfollowed by [facility] for chronic mild to moderate thrombocytopenia. She states that she was followed with Dr. Kumari prior to his senior care and was told that she had an elevated protein level as well as thrombocytopenia but never had clinical bleeding. She is 4 para4 without complicationsand was never told that she was thrombocytopenic while . She is had multiple prior surgicalprocedures without any clinical bleeding. She had been recommended for a pain procedure with Dr. Wilson about one year ago and he declined to do the procedure because her platelet count was less than 100,000. For this reason she received 2 platelet transfusions, with little improvement of her platelet count and her second transfusion resulted in throat tightening due to allergy to platelets . Shehas never been treated with steroids and has never been told that she has immune thrombocytopenia. She has mild leukopenia with relative neutropenia, absolute neutrophil count of 400-800 and mild lymphocytosis. Hemoglobin is normal. She has not had any bright red blood per rectum or epistaxis. She has no history of bleeding within the family however does have a mother and sister diagnosed with colon cancer, a brother diagnosed with lung cancer, and another sister diagnosed with breast cancer. She had prior pain in the right hand mainly at the first MCP joint with some associated swelling and right foot pain and was evaluated by podiatry. She was told that her blood tests were negative forgout. She had screening with MALLORY, CCP, and rheumatoid factor all of which were negative. She says that about 2 years ago she saw Dr. Petersen for cirrhosis but did not know of any specific therapy. Wereviewed these findings from her liver ultrasound ordered by Dr. Benavidez Summer 2016. Initial consultation with me March 16, 2017. 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 ROS Details: All systems reviewed & no additional complaints except as documented Subjective/ROS - Narrative: Constitutional: No Chills, No Diaphoresis, Fatigue (no change since last 04/14/2017), No Fever, No Malaise, No Night Sweats, No Weakness, No Weight Gain, No Weight Loss Gastrointestinal: No Abdominal Pain, No Black Stool, No Bloating, No Bloody Stool, No Constipation,No Diarrhea, No Dysphagia, No Hematemesis, No Nausea, NoPostprandial Pain, No Rectal Bleeding, No Rectal Pain, No Vomiting, Other (chronic gastroesophageal reflux stable) Cardiovascular: No Chest Pain, No Edema, No Palpitations, No Syncope Genitourinary: No Discharge, No Dysuria, No Flank Pain, Frequency (chronic andunchanged)No Hematuria, No Incontinence, No Nocturia, No Urgency, No Urinary Retention Musculoskeletal: + for recent bilateral hip/thigh pain; No current Back Pain (chronic with pain radiating everywhere per prior outpatient visits), No ChestWall Tenderness, Improvement of prior Joint Pain (right index MCP joint as per HPI above, right > left shoulder, right SI joint) Joint Swelling (right index MCP joint), Muscle Stiffness, Myalgia (history of fibromyalgia), No Neck Pain (reports known cervical disc disease) HEENT: No Blurred Vision, No Discharge, No Ear Pain, No Epistaxis, No Rhinorrhea, No Sore Throat Respiratory: No Cough, No Hemoptysis, No Shortness of Breath (chronic and unchanged due to COPD), No Sputum, No Wheezing Neurological: No Dizziness, + stable Numbness/Tingling (reports long-standing bilateral foot numbness), No Pre-existing Deficit (no history of stroke or seizure), Recent daily headache--recommend skeletal survey Hematologic/Lymphatic: No Bleeds Easily, Bruises Easily, No Enlarged Lymph Nodes, Other (reports allergy to prior platelet transfusion) Endocrine: Excessive Sweating (hot flashes, postmenopausal) Flushing, No Intolerance to Cold, Intolerance to Heat Psychiatric: No Depressed Mood, No Insomnia Integumentary: No Jaundice, No Lesions, No Rash Allergic/Immunology: No Pruritus PMFSH - History Attestation statement: The following information was validated with the patient. Source: Old Records Reviewed - Medical History Medical History: Medical History (Last Reviewed 06/27/19 @ 19:02 by Fabiola Marinelli MD) Aortic aneurysm COPD (chronic obstructive pulmonary disease) Diabetes Fibromyalgia GERD (gastroesophageal reflux disease) Iron deficiency Neutropenia Smoldering multiple myeloma (SMM) Smoldering myeloma - Surgical History Surgical History: Surgical History (Last Reviewed 06/27/19 @ 19:02 by Fabiola Marinelli MD) H/O: hysterectomy History of appendectomy History of cholecystectomy - Social History Smoking Status: Former smoker Substance Use Type: None Social History Comments: [place] and granddaughter Home Medications & Allergies Allergies latex Allergy (Verified 04/18/19 11:57) Unknown Reaction moxifloxacin [From Avelox] Allergy (Verified 04/18/19 11:57) Hives Quinolones Allergy (Verified 04/18/19 11:57) Unknown Reaction tetracycline Allergy (Verified 04/18/19 11:57) Unknown Reaction Home Medications carvedilol 12.5 mg PO BID 11/20/17 [History Confirmed 06/27/19] duloxetine 60 mg PO DAILY 11/20/17 [History Confirmed 06/27/19] insulin detemir U-100 22 units SUB-Q QHS 11/20/17 [History Confirmed 06/27/19] oxycodone 10 mg PO TID PRN 11/20/17 [History Confirmed 06/27/19] Prilosec OTC 40 mg PO DAILY 11/24/17 [History Confirmed 06/27/19] albuterol sulfate 2 puff INHALATION Q6H PRN 11/24/17 [History Confirmed 06/27/19] fluticasone propion-salmeterol [Advair Diskus] 1 inh INHALATION Q12H PRN 11/24/17 [History Confirmed 06/27/19] cyanocobalamin (vitamin B-12) 1,000 mcg PO DAILY 09/15/18 [History Confirmed 06/27/19] cholecalciferol (vitamin D3) [Vitamin D3] 1,000 unit PO DAILY 04/13/19 [History Confirmed 06/27/19] Objective - Height/Weight Height/Weight: Height 5 ft 2.99 in Weight 105.687 kg - Vital Signs Vital Signs: 06/27/19 11:13 Temperature 97.5 F L Pulse Rate [Left Brachial] 77 Respiratory Rate 20 Blood Pressure [Left Arm] 130/79 02 Sat by Pulse Oximetry 95 - Pain Generalized Pain Intensity: 4 Bilateral Hip Pain Intensity: 5 Bilateral Leg Pain Intensity: 5 Bilateral Shoulder Pain Intensity: 6 - Emotional Needs Assessment Emotional Needs Assessment: Emotional Needs Identified? No Distress Screening Total 0 Support System Child/Children - ECOG Performance Status ECOG Score: 1 Physical Exam Narrative: CONSTITUTIONAL: The patient is in no acute distress. HEAD / FACE: Normocephalic. No tenderness to palpation over scalp, no sinus tenderness to palpation. EYES: Pupils are equal and reactive to light. Conjunctivae and lids are benign in appearance. Ocular movement intact. EARS: Hearing grossly intact. NOSE / MOUTH / THROAT: Nose, mouth, tongue and oropharynx are benign in appearance. No signs of inflammation. NECK / THYROID: Neck is supple. Thyroid is symmetrical, without thyromegaly, masses or palpable nodules. LYMPHATIC: No palpable cervical, supraclavicular, axillary, or inguinal adenopathy. RESPIRATORY: Normal to inspection. Lungs clear to auscultation and percussion. No wheezing, rales, rhonchi or rubs. Normal effort. CARDIOVASCULAR: Regular rate and rhythm. No murmurs, gallops, or rubs. VASCULAR: Carotid, radial, femoral and pedal pulses present bilaterally. No bruits. ABDOMEN: Bowel sounds normoactive. Soft, nontender and non-distended. No hepatosplenomegaly. No masses. GENITOURINARY: No CVA tenderness. No suprapubic fullness or tenderness. No groinadenopathy. No evidence of hernias. INTEGUMENTARY: The skin is unremarkable. No rashes. No suspicious lesions. No bruising or petechiaenoted. BACK / SPINE: The back is nontender. No step off deformity MUSCULOSKELETAL: Normal musculature, no joint deformities or abnormalities, normal range of motion for all four extremities. EXTREMITIES: No edema, cyanosis or clubbing. No Destini sign. NEUROLOGICAL: Alert and oriented. Cranial nerves intact. No gross motor or sensory deficits. PSYCHIATRIC: No anxiety or evidence of depression. Results - Labs Labs: Diagram of Most Recent CBC and CMP 06/13/19 14:10 06/13/19 14:10 06/13/2019: Serum protein electrophoresis: M spike not observed (no serum immunofixation reported) Urine protein electrophoresis: Urine random M spike 35.6 (previously M spike 38.1% percent), urine immunofixation Bence-Murray protein positive, lambda type Normal quantitative immunoglobulins with IgG 1221, IgA 284, IgM 57 06/13/2019: Serum free kappa light chain 27.1, serum free lambda light chain 317.4, kappa/lambda ratio 0.09 12/07/2018: Serum free kappa light chain 21.6, serum free lambda light chain 257.8, kappa/lambda ratio 0.08 - Impressions Date of Service: 04/18/19 CT/CT chest wo con: Chest Pain Copies to: Ferny Paulino DO~ CT CHEST WITHOUT CONTRAST COMPARISON: 11/16/2017 CLINICAL DATA: Mid sternal chest pain and shortness of breath. History of aortic aneurysm. Spiral images were obtained through the chest without contrast due to history ofmultiple myeloma. Images were reviewed using both narrow and wide window settings. This CT exam was performed using oneor more following dose reduction techniques: Automated exposure control, adjustment of the mA and/or kV accordingto patient size, or use of iterative reconstruction technique. The heart is top normal in size. No pericardial effusion is present. Coronary artery calcification and/or stents are visualized. Mild atherosclerotic plaque is seen at the aortic arch, descending aorta and proximal great vessels. There is mild aneurysmal dilatation of the ascending aorta with diameter of approximately 4.1 cm. This is similar to the comparison. Small prevascular, paratracheal, AP window and subcarinal lymph nodes are present. The licha are more difficult to assess without contrast however there are some calcified granulomas on the left. There is slight dextroscoliotic curvatureand endplate spurring. There is minor linear scarring or atelectasis at the bases. No additional consolidation, pleural effusion or discrete soft tissue nodules are seen. No pneumothorax is identified. Limited cuts through the upper abdomen show mild nodular contour to the liver. Patient is status post cholecystectomy. Splenic granulomas are seen. There aredistal paraesophageal and upper abdominal lymph nodes, largest in the periportalregion. CT/CT chest wo con IMPRESSION: MILD STABLE ANEURYSMAL DILATATION OF THE ASCENDING AORTA. MINOR SCARRING OR ATELECTASIS. GRANULOMATOUS CHANGES. UPPER ABDOMINAL FINDINGS SUGGESTIVE OF CIRRHOSIS. NO ACUTE FINDINGS. Impression dictated by: Tracey Bah M.D.04/18/2019 1:25 PM - Other Results Results/Comments: Prior bone marrow biopsy from 03/31/2017 was requested by [facility] for second review. Outside pathology report from 04/28/2019: Impression: Bone marrow aspirate involved by plasma cell neoplasm. Normocellular bone marrow (30%) with trilineage hematopoiesis and approximately 10% plasma cells. Stainable iron present. [place] red stain negative for amyloid. The morphologic findings and phenotypic studies described below demonstrated involvement by a lambda light chain restricted plasma cell neoplasm. Assessment and Plan (1) Smoldering multiple myeloma (SMM) She previously had a diagnosis of monoclonal gammopathy of undetermined significance, but due to worsening of her thrombocytopenia without bleeding and chronic mild leukopenia without infection, further labs and bone marrow biopsy was performed in March 2017. --Diagnostic for smoldering myeloma (15% plasma cells by bone marrow biopsy 03/31/2017--[facility] review of this specimen notes 10% plasma cell involvement). She has high risk cytogenetics and I sent her for consultation with Dr. Piter Benavidez at [facility] in 2016. Her persistent thrombocytopenia made her [...] She has remained asymptomatic in these areas andwe arranged repeat PET/CT at 6 months with CBC, CMP, SPEP and UPEP with immunofixation, serum kappa/lambda light chain analysis, and quantitative immunoglobulins. --No lytic lesion seen on f/u PET/CT 11/2017 and all labs stable. Also had head CT to evaluate for mastoiditis in 03/2018 unremarkable. 05/2018 skeletal survey showed no lytic lesions and she has stableshoulder, hand, and right SI joint pain (although likely due to fibromyalgia. --Current myeloma labs show mild increase of urine M-spike, kappa/lambda ratio, and normal serum M-spike and quant immunoglobulins. Urine protein is still undetectable, therefore will continue surveillance every 6 months with the same labs--no hypercalcemia, renal dysfunction (or proteinuria), anemia, or new bone symptoms. --She has recent headaches and hip/thigh pain--agrees to skeletal survey and I will contact her with results. If lytic lesions are seen, this would be an indication for repeat bone marrow biopsy and possible treatement for active myeloma. She expressed understanding over this 30 minute f/u visit. She agrees to follow in 6 months with the same myeloma labs--Will return sooner for f/u if worsening/new chronic pain symptoms. 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 I previously reviewed her outpatient records from [facility] [place], including review of notes, laboratories, and prior bone marrow biopsy 13 years ago. 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 Most recent platelet count is relatively stable at 57,000 but no clinical bleeding. She waspreviously referred to weight reduction clinic and may have slow improvement of steatohepatitis with lifestyle modification. Unless she has active bleeding or planned surgery, we will continue observation with follow at every 6 month f/u visits. --Agree with recommendation for EGD surveillance for varices (last was 09/2018--negative). --Prior vitamin B12 and folic acid are normal, for known history of neuropathy. As noted above, I reviewed the negative M spike on serum protein electrophoresiswith immunofixation, but positive for Bence Murray protein on urine protein electrophoresis. Her Quantitative immunoglobulins IgG, IgA, and I gM were all within normal limits, however her serum kappa lambda light chain analysis showeda predominance of lambda light chains. Previous labs for lupus anticoagulant with DRVVT, hexagonal phase phospholipid, anti-cardiolipin IgG and IgA, and beta 2 glycoprotein IgG and IgA were within normal limits. 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 She wasreferred to [facility] to attempt weight reduction through diet and exercise that may prevent further fatty infiltration that may further impairher liver function. Continue to follow CMP at 6 month f/u visit. (4) Neutropenia, unspecified Qualifiers: Neutropenia type: unspecified Qualified Code(s): D70.9 - Neutropenia, unspecified Stable mild neutropenia without infection (current ANC not reported--no differential but normal WBC)--unlikely related to smoldering myeloma and no nutritional deficiency. Will continue to follow with every 6 month CBC. (5) Aneurysm of ascending aorta This has been present on prior exams, measured 4.1cm on most recent imaging 04/2019 and no indication for surgical management at this time. (6) Obesity Qualifiers: Body mass index: BMI 40.0-44.9 KAPADIA--continue f/u in weight reduction clinic. Defer to PCM. (7) Fibromyalgia Continue f/u with primary physician. New bilateral hip/thigh pain: prior negative skeletal survey 05/2018, ordered f/u skeletal survey today to exclude lytic lesions. I will contact her with results and followup if necessary. (8) Diabetes mellitus Qualifiers: Diabetes mellitus type: type 2 Diabetes mellitus complication status: without complication Stable diabetes control. Defer to PCM. - Chemo Plan Chemo Plan (Dose, Rate, Freq): observation of smoldering myeloma weight management clinic referral for nonalcoholic steatohepatitis ferrous sulfate for iron deficiency on bone marrow biopsy--stopped 11/2017. - Time with Patient Total Time Spent with Patient: 30 min Coordination of Care & Counseling Time: Greater than 50% of time spent with patient was for coordination of care (as documented) and [id number] counseling of patient and/or family. Dictated By: Fabiola Marinelli MD DD/ [id number] Signed By: <Electronically signed by MD Fabiola Marinelli> 06/27/19 1918 [facility] Work Phone: [phone] Progress note Author Fabiola Marinelli [facility] December 27, 2018 8:40pmNote Date/TimeFebruary 2018 11:02[facility] [place] [address] Hem/Onc Follow Up Note - OP Signed Patient: Mojgan Pérez MR#: [id number] : 1955 Acct:[id number] Age/Sex: 63 / F Type: REG RCR Copies to: Yinka Lopez MD~ Subjective Date/Time of Service: Date of Service: 12/27/2018 Time of Service: 11:01 Chief Complaint: Patient is here for six month follow up history of [facility]US lab work for review, no concerns voiced. - Diagnosis DIAGNOSIS: 1. Chronic mild thrombocytopenia due to cirrhosis from hepatic steatosis (nonalcoholic steatohepatitis--KAPADIA), no masses on hepatic US performed this month. --Patient referred from [facility] nurse practitioner with Dr. Lopez for persistent thrombocytopenia with mild leukopenia. Previously followed at [facility] by Dr. Kumari then Dr. Cummings at [facility]. Prior angioedema with throat tightening after platelet transfusion about6-12 months ago. Requested second opinion regarding her cytopenias 11/06/2016. 2. Mild leukopenia with relative neutropenia without infections. Unremarkable white blood cell precursor morphology on bone marrow aspiration biopsy 03/31/2017. 3. I reviewed outside notes from [facility], patient was last seen in June 2016 there. She was reportedly under the care of Dr. Monroe 2005 with monoclonal gammopathy. Prior bone marrow biopsy performed in 2005 was normal cellular for age (40%) with trilineage hematopoiesis, and showed4% plasma cells at that time. Dysuria sites were unremarkable. Cytogenetic analysis showed no clonal numerical or structural abnormalities. 2 cells with random chromosomal changes felt to be of no clinical significance. The patient was unaware of this diagnosis. 4. Repeat bone marrow biopsy 03/31/2017 reviewed: diagnostic for plasma cell myeloma, lambda monoclonal, involving approximately 15% of normal cellular bone marrow for age (30-40%). No evidence of amyloid deposition. Virtually absent stainable iron stores. FISH study for myeloma revealed +1q+, 13q-,14q-, diminished IGH, and 16q-. Gain of 1q and loss of 16q are both associated with high risk disease and myeloma. Conventional cytogenetics revealed a normal female karyotype. This is consistent with smoldering myeloma. She was referredto Dr. Piter Benavidez on May 07, 2017 and she was not felt to be a clinical trial candidate due to her chronic thrombocytopenia from sequestration due to cirrhosis. PET/CT showed indeterminate lesions in the right parietal occipital area and sternum which were asymptomatic. No obvious bony lytic disease. No indications for therapy at this time. 5. 11/24/2017: PET/CT repeated due to indeterminate lesions of the right parietal occipital area andsternum which were asymptomatic--no evidence of abnormal FDG uptake. 05/25/2018 visit: bilateral shoulder pain, right hand pain and hip pain. Sending for skeletal surveyand physical therapy. No change in myeloma labs, but worse thrombocytopenia and leukopenia without bleeding or infection. 12/27/2017 visit: No new symptoms, mild increased urine protein, lower kappa/lambda ratio, random urine/creat ratio low, no CRAB criteria. Will continue observation q 6 months. Past Medical History 1. Anxiety and depression 2. Osteoarthritis 3. Diabetes mellitus, she states she's been on medication for approximately 1- 1/2 years 4. Hypertension 5. COPD, not requiring oxygen or chronic steroids she does not use inhalers daily 6. GERD 7. Fibromyalgia 8. 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 Prior oral contraceptives for8 years and prior hormone replacement therapy for 5 years. Patient cannot recall the year of her hysterectomy. Past Surgical History 1. Hysterectomy for endometriosis 2. Cholecystectomy 3. Appendectomy 4. Carpal tunnel surgery 5. Elbow surgery 6. Knee surgery 7. 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 She is unaccompanied today. Family History Mother of colon cancer at age of 79, father of heart disease and had ahistory of prostatecancer One sister was diagnosed with breast cancer and of this at the age of 52 Brother diagnosed with lung cancer and of this at the age of 65 Sister was diagnosed with colon cancer and is still living She has 3 other sisters who have no history of malignancy. And 2 brothers with no history of malignancy. She reports one daughter and 3 sons without history of malignancy or chronic medical problems HPI: Here for 6 month followup of smoldering myeloma (15% plasma cells by bone marrowbiopsy 05/2017). Recent bronchitis 3 weeks ago, now resolved. No other infections, bleeding or change in chronic pain from fibromyalgia. Bilateral shoulder discomfort improved from last visit in May 2018. No new bone pain with stable bilateral knee pain from osteoarthritis. No change in ambulation. Bowels stable, no abdominal pain, no change in appetite. Previous testing for lupus anticoagulant normal--no history ofthrombosis. ----- This is a 63-year-old lady on chronic disability has a history of arthritis, diabetes mellitus, hypertension, COPD, GERD, and fibromyalgia who [facility] for chronic mild to moderate thrombocytopenia. She states that she was followed with Dr. Kumari prior to his senior care and was told that she had an elevated protein level as well as thrombocytopenia but never had clinical bleeding. She is 4 para4 without complicationsand was never told that she was thrombocytopenic while . She is had multiple prior surgicalprocedures without any clinical bleeding. She had been recommended for a pain procedure with Dr. Wilson about one year ago and he declined to do the procedure because her platelet count was less than 100,000. For this reason she received 2 platelet transfusions, with little improvement of her platelet count and her second transfusion resulted in throat tightening due to allergy to platelets . Radhahas never been treated with steroids and has never been told that she has immune thrombocytopenia. She is also noted to have mild leukopenia with relative neutropenia, absolute neutrophil count of 400 and mild lymphocytosis. Hemoglobin is normal. She had a prior colonoscopy 2 1/2 years ago that wasunremarkable. She has not had any bright red blood per rectum or epistaxis. She has no history of bleeding within the family however does have a mother and sister diagnosed with colon cancer, a brother diagnosed with lung cancer, and another sister diagnosed with breast cancer. Her other recent complaints include pain in the right hand mainly at the first MCP joint with some associated swelling. She also had recent right foot pain and was evaluated by podiatry. She was toldthat her blood tests were negative for gout. She had screening with MALLORY, CCP, and rheumatoid factorall of which were negative. She says that about 2 years ago she saw Dr. Petersen for cirrhosis but did not know of any specific therapy. We reviewed these findings from her liver ultrasound ordered by Dr. Benavidez Summer 2016. No new areas of bone pain. Initial consultation with me March 16, 2017. 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 Subjective/ROS - Narrative: Constitutional: No Chills, No Diaphoresis, Fatigue (no change since last 04/14/2017), No Fever, No Malaise, No Night Sweats, No Weakness, No Weight Gain, No Weight Loss Gastrointestinal: No Abdominal Pain, No Black Stool, No Bloating, No Bloody Stool, No Constipation,No Diarrhea, No Dysphagia, No Hematemesis, No Nausea, NoPostprandial Pain, No Rectal Bleeding, No Rectal Pain, No Vomiting, Other (chronic gastroesophageal reflux stable) Cardiovascular: No Chest Pain, No Edema, No Palpitations, No Syncope Genitourinary: No Discharge, No Dysuria, No Flank Pain, Frequency (chronic andunchanged)No Hematuria, No Incontinence, No Nocturia, No Urgency, No Urinary Retention Musculoskeletal: No current Back Pain (chronic with pain radiating everywhere per prior outpatientvisits)No Chest Wall Tenderness, Improvement of prior JointPain (right index MCP joint as per HPI above, right > left shoulder, right SI joint) Joint Swelling (right index MCP joint), Muscle Stiffness, Myalgia (history of fibromyalgia), No Neck Pain (reports known cervical disc disease) HEENT: No Blurred Vision, No Discharge, No Ear Pain, No Epistaxis, No Rhinorrhea, No Sore Throat Respiratory: No Cough, No Hemoptysis, No Shortness of Breath (chronic and unchanged due to COPD), No Sputum, No Wheezing Neurological: No Dizziness, No Headache, Numbness (reports long-standing bilateral foot numbness)NoPre-existing Deficit (no history of stroke or seizure), Tingling Hematologic/Lymphatic: No Bleeds Easily, Bruises Easily, No Enlarged Lymph Nodes, Other (reports allergy to prior platelet transfusion) Endocrine: Excessive Sweating (hot flashes, postmenopausal) Flushing, No Intolerance to Cold, Intolerance to Heat Psychiatric: No Depressed Mood, No Insomnia Integumentary: No Jaundice, No Lesions, No Rash Allergic/Immunology: No Pruritus ROS Details: All systems reviewed & no additional complaints except as documented ONC PMFSH - General Attestation statement: The following information was validated with the patient. 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, Other - Smoldering multiple myeloma - Social History Tobacco Type: cigarettes Hx Recreational Drug Use?: No Home Medications & Allergies Allergies Allergy/AdvReac Type Severity Reaction Status Date / Time latex Allergy Unknown Verified 11/20/17 15:23 Reaction Quinolones Allergy Unknown Verified 11/20/17 15:23 Reaction tetracycline Allergy Unknown Verified 11/20/17 15:23 Reaction Home Medications Medication Instructions Recorded Confirmed Type carvedilol 1 tab PO DAILY 11/20/17 12/27/18 History duloxetine 1 tab PO DAILY 11/20/17 12/27/18 History insulin detemir U-100 22 units SUB-Q DAILY 11/20/17 12/27/18 History oxycodone 1 tab PO TID PRN 11/20/17 12/27/18 History rosuvastatin 1 tab PO DAILY 11/20/17 12/27/18 History albuterol sulfate 2 puff INHALATION Q6H 11/24/17 12/27/18 History albuterol sulfate [ProAir HFA] 1 puff INHALATION Q4-6H PRN 11/24/17 12/27/18 History fluticasone-salmeterol [Advair 1 inh INHALATION Q12H 11/24/17 12/27/18 History Diskus] omeprazole magnesium [Prilosec OTC] 40 mg PO DAILY 11/24/17 12/27/18 History cyanocobalamin (vitamin B-12) 1,000 mcg PO DAILY 09/15/18 12/27/18 History temazepam [Restoril] 30 mg PO QHS PRN 09/15/18 12/27/18 History cyclobenzaprine 10 mg PO TID PRN 12/27/18 12/27/18 History Objective - Resuscitation Status Resuscitation Status: Full Code - Height/Weight Height/Weight: Height 5 ft 2.5 in Weight 107.5 kg - Vital Signs Vital Signs: 12/27/18 10:51 Temperature 98.6 F Pulse Rate [Left Brachial] 79 Respiratory Rate 20 Blood Pressure [Left Arm] 135/86 02 Sat by Pulse Oximetry 96 - Pain Generalized Pain Intensity: 4 Bilateral Leg Pain Intensity: 4 Bilateral Shoulder Pain Intensity: 6 - Emotional Needs Assessment Emotional Needs Assessment: Emotional Needs Identified? No - ECOG Performance Status ECOG Score: 1 Physical Exam - Constitutional no acute distress, obese, no chronically ill appearing, cooperative, no somnolent, no obtunded - Routine HEENT Exam Head: normocephalic, atraumatic, no cushingoid faces Eye: EOMI, PERRL, normal accommodation, no conjunctival injection, no scleral icterus ENT: mucous membranes moist, oropharynx clear, dentition normal, nares patent, no sinus tenderness - Routine Neck Exam supple, full ROM, no lymphadenopathy, no thyromegaly, no tenderness - Routine Chest/Breast/Axilla Exam Chest wall: no tenderness, no mass Axillae: no lymphadenopathy, no mass - Routine Respiratory Exam no accessory muscle use, no decreased breath sounds, CTA bilaterally, no rales, no respiratory distress, no rhonchi, no wheezes - Routine Cardiovascular Exam RRR, no murmur, no gallop, no irregular rhythm - Routine Abdominal Exam soft, normoactive bowel sounds, no tenderness, no distended, no organomegaly, nomass - Routine Exam Groin: Absent: inguinal lymphadenopathy - Routine Extremities Exam Present: pulses intact, normal capillary refill, joint swelling. Absent: cyanosis, clubbing, edema,full ROM - pain and decreased ROM R> L shoulder, calf tenderness, tenderness - Routine Back/Spine/Pelvis Exam Back/Spine: Present: full ROM, paraspinal tenderness - Due to known fibromyalgia, stable. Absent: CVA tenderness, vertebral tenderness - Routine Skin Exam Present: intact, warm, normal turgor. Absent: cyanosis, erythema, petechiae, urticaria, lesions, jaundice, rash, ecchymosis - Routine Neurological Exam Present: alert, oriented X3, CN II-XII intact, normal reflexes, moving all extremities, normal speech. Absent: abnormal gait, tremors - Routine Psychiatric Exam Present: normal affect, normal thought process, cooperative. Absent: depressed,anxious Results - Labs Labs: Diagram of Most Recent CBC and CMP 12/07/18 16:14 12/07/18 16:14 LDH 205 (H), Serum protein 6.2, Alb 3.2, beta 2 MG 1.9 (normal), serum M-spike neg. B12 816, Folate>22.3 Urine M-spike 38.1%, Urine Protein <6, Urine Creat 37.2, Free [place] 21.6, Free Lambda 257.8, K/LRatio 0.08 - Impressions Any impression(s) listed above is documentation that was entered by the reading physician into a diagnostic report(s) for Mojganloly Hiltonu. I have reviewed the report(s) and am incorporating any findings in the treatment plan of this patient where applicable. No new imaging for review. Assessment and Plan (1) Smoldering multiple myeloma (SMM) Status: Chronic She previously had a diagnosis of monoclonal gammopathy of undetermined significance, but due to recent worsening of her thrombocytopenia without bleeding and chronic mild leukopenia without infection, further labs and bone marrow biopsy was performed. --Diagnostic for smoldering myeloma (15% plasma cells by bone marrow biopsy 03/31/2017). She also has high risk cytogenetics and I sent her for [facility]with [facility] Her persistent thrombocytopenia made her ineligible for any clinical trials, and prevented her from receiving local pain procedures given her chronic low back pain. --05/2017 PET/CT images and reports performed for staging to exclude bone involvement with myeloma. 2 indeterminate areas of uptake thought to be degenerative arthritis vs early bone findings of myeloma (right parietooccipitalarea and upper sternum). She has remained asymptomatic [...] showed no lytic lesions and she has stableshoulder, hand, and right SI joint pain (although likely due to fibromyalgia. --Current myeloma labs show mild increase of urine M-spike, kappa/lambda ratio, and normal serum M-spike and quant immunoglobulins. Urine protein is still undetectable, therefore will continue surveillance every 6 months with the same labs--no hypercalcemia, renal dysfunction (or proteinuria), anemia, or new bone symptoms. Will return sooner for f/u if new symptoms. She agrees to follow in 6 months with the same myeloma labs--will defer skeletalsurvey and/or repeat PET/CT to only if new lytic lesions seen or worsening/new chronic pain symptoms. 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 I previously reviewed her outpatient records from [facility], including review of notes, laboratories, and prior bone marrow biopsy 12 years ago. 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 Most recent platelet count is relatively stable at 70,000 but no clinical bleeding. She waspreviously referred to weight reduction clinic and may have slow improvement of steatohepatitis with lifestyle modification. Unless she has active bleeding or planned surgery, we will continue observation with follow at every 6 month f/u visits. --Repeat testing for vitamin B12 and folic acid are normal, for known history ofneuropathy. As noted above, I reviewed the negative M spike on serum protein electrophoresis with immunofixation, but positive for Bence Murray protein on urine protein electrophoresis. Her Quantitative immunoglobulins IgG, IgA, and IgM were all within normal limits, however her serum kappa lambda light chain analysis showed a predominance of lambda light chains. Screen for lupus anticoagulant with DRVVT, hexagonal phase phospholipid, anti-cardiolipin IgG andIgA, and beta 2 glycoprotein IgG and IgA was within normal limits. 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 She hasbeen [facility] to [facility] to attempt weight reduction through diet and exercise that may prevent further fatty infiltration that may further impair her liver function. Continue to follow CMP at 6 month f/u visit. (4) Neutropenia, unspecified Qualifiers: Neutropenia type: unspecified Qualified Code(s): D70.9 - Neutropenia, unspecified Status: Chronic Stable mild neutropenia without infection (current ANC 900)--unlikely related tosmoldering myeloma and no nutritional deficiency. Will continue to follow with every 6 month CBC. (5) Obesity Qualifiers: Body mass index: BMI 40.0-44.9 Status: Chronic KAPADIA--continue f/u in weight reduction clinic. Also may consider bariatric surgery referral if platelet count remains stable. Defer to PCM. (6) Fibromyalgia Status: Chronic Continue f/u with primary physician. New bilateral shoulder pain with negative skeletal survey 05/2018, ordered to exclude lytic lesions. Next skeletal survey if new symptoms or significant changes inlabs. (7) Diabetes mellitus Qualifiers: Diabetes mellitus type: type 2 Diabetes mellitus complication status: without complication Status: Chronic Stable diabetes control. Defer to PCM. - Chemo Plan Chemo Plan (Dose, Rate, Freq): observation of smoldering myeloma weight management clinic referral for nonalcoholic steatohepatitis ferrous sulfate for iron deficiency on bone marrow biopsy--stopped 11/2017. - Time with Patient Total Time Spent with Patient: 30 min Coordination of Care & Counseling Time: Greater than 50% of time spent with patient was for coordination of care (as documented) and [id number] counseling of patient and/or family. Dictated By: Fabiola Marinelli MD DD/ [id number] Signed By: <Electronically signed by MD Fabiola Marinelli> 12/27/182039 [facility] Work Phone: [phone] Progress note Author Fabiola Marinelli [facility] May 26, 2018 6:52amNote Date/TimeJuly 2017 1:25pm[facility] [place] [address] Hem/Onc Follow Up Note - OP Signed Patient: Mojgan Pérez MR#: [id number] : 1955 Acct:[id number] Age/Sex: 62 / F Type: REG RCR Copies to: Mc Petersen MD, MD~ Subjective Date/Time of Service: Date of Service: 05/25/2018 Time of Service: 13:25 Chief Complaint: Patient is here for routine follow up for smoldering myeloma. Patient has labs forreview. Complains of bilt shoulder pain right greater than left. - Diagnosis DIAGNOSIS: 1. Chronic mild thrombocytopenia due to cirrhosis from hepatic steatosis (nonalcoholic steatohepatitis--KAPADIA), no masses on hepatic US performed this month. --Patient referred from Barbara Lima nurse practitioner with Dr. Lopez for persistent thrombocytopenia with mild leukopenia. Previously followed at [facility] by Dr. Kumari then Dr. Cummings at [facility]. Prior angioedema with throat tightening after platelet transfusion about6-12 months ago. Requested second opinion regarding her cytopenias 11/06/2016. 2. Mild leukopenia with relative neutropenia without infections. Unremarkable white blood cell precursor morphology on bone marrow aspiration biopsy 03/31/2017. 3. I reviewed outside notes from [facility], patient was last seen in June 2016 there. She was reportedly under the care of Dr. Monroe 2005 with monoclonal gammopathy. Prior bone marrow biopsy performed in 2005 was normal cellular for age (40%) with trilineage hematopoiesis, and showed4% plasma cells at that time. Dysuria sites were unremarkable. Cytogenetic analysis showed no clonal numerical or structural abnormalities. 2 cells with random chromosomal changes felt to be of no clinical significance. The patient was unaware of this diagnosis. 4. Repeat bone marrow biopsy 03/31/2017 reviewed: diagnostic for plasma cell myeloma, lambda monoclonal, involving approximately 15% of normal cellular bone marrow for age (30-40%). No evidence of amyloid deposition. Virtually absent stainable iron stores. FISH study for myeloma revealed +1q+, 13q-,14q-, diminished IGH, and 16q-. Gain of 1q and loss of 16q are both associated with high risk disease and myeloma. Conventional cytogenetics revealed a normal female karyotype. This is consistent with smoldering myeloma. She was referredto Dr. Piter Benavidez on May 07, 2017 and she was not felt to be a clinical trial candidate due to her chronic thrombocytopenia from sequestration due to cirrhosis. PET/CT showed indeterminate lesions in the right parietal occipital area and sternum which were asymptomatic. No obvious bony lytic disease. No indications for therapy at this time. 5. 11/24/2017: PET/CT repeated due to indeterminate lesions of the right parietal occipital area andsternum which were asymptomatic--no evidence of abnormal FDG uptake. 05/25/2018 visit: bilateral shoulder pain, right hand pain and hip pain. Sending for skeletal surveyand physical therapy. No change in myeloma labs, but worse thrombocytopenia and leukopenia without bleeding or infection. Past Medical History 1. Anxiety and depression 2. Osteoarthritis 3. Diabetes mellitus, she states she's been on medication for approximately 1- 1/2 years 4. Hypertension 5. COPD, not requiring oxygen or chronic steroids she does not use inhalers daily 6. GERD 7. Fibromyalgia 8. 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 Prior oral contraceptives for8 years and prior hormone replacement therapy for 5 years. Patient cannot recall the year of her hysterectomy. Past Surgical History 1. Hysterectomy for endometriosis 2. Cholecystectomy 3. Appendectomy 4. Carpal tunnel surgery 5. Elbow surgery 6. Knee surgery 7. 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 She is unaccompanied today. Family History Mother of colon cancer at age of 79, father of heart disease and had ahistory of prostatecancer One sister was diagnosed with breast cancer and of this at the age of 52 Brother diagnosed with lung cancer and of this at the age of 65 Sister was diagnosed with colon cancer and is still living She has 3 other sisters who have no history of malignancy. And 2 brothers with no history of malignancy. She reports one daughter and 3 sons without history of malignancy or chronic medical problems HPI: Here for 6 month followup of smoldering myeloma (15% plasma cells by bone marrowbiopsy 05/2017). No infections, bleeding or change in chronic pain from fibromyalgia. Notes worsening bilateral shoulderpain with mild decrease in ROM. Takes Percocet about 3 times daily. Also right hand and right SI joint areapain. No change in ambulation. Bowels stable, no abdominal pain, no change in appetite. Previous testing for lupus anticoagulant normal 6 months ago--no history of thrombosis. This is a 62-year-old lady on chronic disability has a history of arthritis, diabetes mellitus, hypertension, COPD, GERD, and fibromyalgia who was [facility] for chronic mild to moderate thrombocytopenia. She states that she was followed with Dr. Kumari prior to his senior care and was told that she had an elevated protein level as well as thrombocytopenia but never had clinical bleeding. She is 4 para4 without complicationsand was never told that she was thrombocytopenic while . She is had multiple prior surgicalprocedures without any clinical bleeding. She had been recommended for a pain procedure with Dr. Wilson about one year ago and he declined to do the procedure because her platelet count was less than 100,000. For this reason she received 2 platelet transfusions, with little improvement of her platelet count and her second transfusion resulted in throat tightening due to allergy to platelets . Shehas never been treated with steroids and has never been told that she has immune thrombocytopenia. She is also noted to have mild leukopenia with relative neutropenia, absolute neutrophil count of 400 and mild lymphocytosis. Hemoglobin is normal. She had a prior colonoscopy 2 1/2 years ago that wasunremarkable. She has not had any bright red blood per rectum or epistaxis. She has no history of bleeding within the family however does have a mother and sister diagnosed with colon cancer, a brother diagnosed with lung cancer, and another sister diagnosed with breast cancer. Her other recent complaints include pain in the right hand mainly at the first MCP joint with some associated swelling. She also had recent right foot pain and was evaluated by podiatry. She was toldthat her blood tests were negative for gout. She had screening with MALLORY, CCP, and rheumatoid factorall of which were negative. She says that about 1 1/2 years ago she saw Dr. Petersen for cirrhosis but did not know of any specific therapy. We reviewed these findings from her liver ultrasound ordered by Dr. Benavidez Summer 2016. No new areas of bone pain. Initial consultation with me March 16, 2017. - Summary of Therapies Summary of Therapies: Observation for monoclonal gammopathy of undetermined significance and moderate thrombocytopenia (due to splenic sequestration from KAPADIA cirrhosis). Subjective/ROS - Narrative: Constitutional: No Chills, No Diaphoresis, Fatigue (no change since last 04/14/2017), No Fever, No Malaise, No Night Sweats, No Weakness, No Weight Gain, No Weight Loss Gastrointestinal: No Abdominal Pain, No Black Stool, No Bloating, No Bloody Stool, No Constipation,No Diarrhea, No Dysphagia, No Hematemesis, No Nausea, NoPostprandial Pain, No Rectal Bleeding, No Rectal Pain, No Vomiting, Other (chronic gastroesophageal reflux stable) Cardiovascular: No Chest Pain, No Edema, No Palpitations, No Syncope Genitourinary: No Discharge, No Dysuria, No Flank Pain, Frequency (chronic andunchanged)No Hematuria, No Incontinence, No Nocturia, No Urgency, No Urinary Retention Musculoskeletal: Back Pain (chronic with pain radiating everywhere per prioroutpatient visits)No Chest Wall Tenderness, Joint Pain (right index MCP joint as per HPI above, right > left shoulder,right SI joint) Joint Swelling (right index MCP joint), Muscle Stiffness, Myalgia (history of fibromyalgia), No Neck Pain (reports known cervical disc disease) HEENT: No Blurred Vision, No Discharge, No Ear Pain, No Epistaxis, No Rhinorrhea, No Sore Throat Respiratory: No Cough, No Hemoptysis, No Shortness of Breath (chronic and unchanged due to COPD), No Sputum, No Wheezing Neurological: No Dizziness, No Headache, Numbness (reports long-standing bilateral foot numbness)NoPre-existing Deficit (no history of stroke or seizure), Tingling Hematologic/Lymphatic: No Bleeds Easily, Bruises EasilyNo Enlarged Lymph Nodes, Other (reports allergy to prior platelet transfusion) Endocrine: Excessive Sweating (hot flashes, postmenopausal) FlushingNo Intolerance to Cold, Intolerance to Heat Psychiatric: No Depressed Mood, No Insomnia Integumentary: No Jaundice, No Lesions, No Rash Allergic/Immunology: No Pruritus ROS Details: All systems reviewed & no additional complaints except as documented Home Medications & Allergies Allergies Allergy/AdvReac Type Severity Reaction Status Date / Time latex Allergy Unknown Verified 11/20/17 15:23 Reaction Quinolones Allergy Unknown Verified 11/20/17 15:23 Reaction tetracycline Allergy Unknown Verified 11/20/17 15:23 Reaction Home Medications Medication Instructions Recorded Confirmed Type carvedilol 1 tab PO DAILY 11/20/17 05/25/18 History duloxetine 1 tab PO DAILY 11/20/17 05/25/18 History insulin detemir U-100 [Levemir 22 units SUB-Q DAILY 11/20/17 05/25/18 History FlexTouch] oxycodone 1 tab PO TID PRN 11/20/17 05/25/18 History rosuvastatin 1 tab PO DAILY 11/20/17 05/25/18 History albuterol sulfate 2 puff INHALATION Q6H 11/24/17 05/25/18 History albuterol sulfate [ProAir HFA] 1 puff INHALATION Q4-6H PRN 11/24/17 05/25/18 History fluticasone-salmeterol [Advair 1 inh INHALATION Q12H 11/24/17 05/25/18 History Diskus] omeprazole magnesium [Prilosec OTC] 40 mg PO DAILY 11/24/17 05/25/18 History Objective - Resuscitation Status Resuscitation Status: Full Code - Height/Weight Height/Weight: Height 5 ft 2.2 in Weight 109 kg - Vital Signs Vital Signs: Temp 98.3 F 05/25/18 13:09 Pulse 75 05/25/18 13:09 Resp 18 05/25/18 13:09 BP 129/85 05/25/18 13:09 Pulse Ox 95 05/25/18 13:09 - Pain Bilateral Leg Pain Intensity: 4 Bilateral Shoulder Pain Intensity: 6 - Emotional Needs Assessment Emotional Needs Assessment: Emotional Needs Identified? No Distress Screening Total 0 - ECOG Performance Status ECOG Score: 1 Physical Exam - Constitutional no acute distress, obese, no chronically ill appearing, cooperative, no somnolent, no obtunded - Routine HEENT Exam Head: normocephalic, atraumatic, no cushingoid faces Eye: EOMI, PERRL, normal accommodation, no conjunctival icterus, no scleral injection ENT: mucous membranes moist, oropharynx clear, dentition normal, nares patent, no sinus tenderness - Routine Neck Exam supple, full ROM, no lymphadenopathy, no thyromegaly, no tenderness - Routine Chest/Breast/Axilla Exam Chest wall: no tenderness, no mass Axillae: no lymphadenopathy, no mass - Routine Respiratory Exam no accessory muscle use, no decreased breath sounds, CTA bilaterally, no rales, no respiratory distress, no rhonchi, no wheezes - Routine Cardiovascular Exam RRR, no murmur, no gallop, no irregular rhythm - Routine Abdominal Exam soft, normoactive bowel sounds, no tenderness, no distended, no organomegaly, nomass - Routine Exam Groin: Absent: inguinal lymphadenopathy - Routine Extremities Exam Present: pulses intact, normal capillary refill, joint swelling. Absent: cyanosis, clubbing, edema,full ROM - pain and decreased ROM R> L shoulder, calftenderness, tenderness - Routine Back/Spine/Pelvis Exam Back/Spine: Present: full ROM, paraspinal tenderness - Due to known fibromyalgia, stable. Absent: CVA tenderness, vertebral tenderness - Routine Skin Exam Present: intact, warm, normal turgor, ecchymosis - few scattered. Absent: cyanosis, erythema, petechiae, urticaria, lesions, jaundice, rash - Routine Neurological Exam Present: alert, oriented X3, CN II-XII intact, normal reflexes, moving all extremities, normal speech. Absent: abnormal gait, tremors - Routine Psychiatric Exam Present: normal affect, normal thought process, cooperative. Absent: depressed,anxious Results - Labs CBC & Chem 7: 05/13/18 10:11 05/11/18 13:40 Labs: Laboratory Last Values WBC 2.8 x10E3/uL (4.5-11.0) L 05/13/18 10:11 Corrected WBC 2.8 X10E3/uL (3.8-11.6) L 05/13/18 10:11 RBC 4.24 x10E6/uL (3.60-5.00) 05/13/18 10:11 Hgb 13.2 g/dL (11.8-15.4) 05/13/18 10:11 Hct 39.1 % (34.0-46.4) 05/13/18 10:11 MCV 92.2 fl (80-100) 05/13/18 10:11 MCH 31.2 pg (24.7-34.3) 05/13/18 10:11 MCHC 33.8 g/dL (32.0-35.0) 05/13/18 10:11 RDW 14.7 % (11.9-15.3) 05/13/18 10:11 Plt Count 55 x10E3/uL (150-450) L 05/13/18 10:11 MPV 8.0 fl (6.3-10.7) 05/13/18 10:11 Neut % (Auto) 36.8 % (.) 05/13/18 10:11 Lymph % (Auto) 51.9 % (.) 05/13/18 10:11 Hodgeman % (Auto) 7.9 % (.) 05/13/18 10:11 Eos % (Auto) 3.1 % (.) 05/13/18 10:11 Baso % (Auto) 0.3 % (.) 05/13/18 10:11 Neut # (Auto) 1.0 x10E3/uL (1.8-7.7) L 05/13/18 10:11 Lymph # (Auto) 1.4 x10E3/uL (1.00-4.8) 05/13/18 10:11 Hodgeman # (Auto) 0.2 x10E3/uL (0.0-0.8) 05/13/18 10:11 Eos # (Auto) 0.1 x10E3/uL (0.0-0.45) 05/13/18 10:11 Baso # (Auto) 0.0 x10E3/uL (0.0-0.2) 05/13/18 10:11 PHA Creatinine Clear 78.8611 05/11/18 13:40 Sodium 135 mmol/L (136-146) L 05/11/18 13:40 Potassium 3.7 mmol/L (3.5-5.1) 05/11/18 13:40 Chloride 104 mmol/L (95-114) 05/11/18 13:40 Carbon Dioxide 23.7 mmol/L (22.0-30.0) 05/11/18 13:40 BUN 11 mg/dL (9-23) 05/11/18 13:40 Creatinine 0.60 mg/dL (0.44-1.03) 05/11/18 13:40 Est GFR ( Amer) > 60 05/11/18 13:40 Est GFR (Non-Af Amer) > 60 05/11/18 13:40 Glucose 208 mg/dL (70-100) H 05/11/18 13:40 POC Glucose 134 mg/dl 11/16/17 09:33 Estimat Average Glucose 180 mg/dL 11/16/17 09:55 Hemoglobin A1c 7.9 % (4.3-5.6) H 11/16/17 09:55 Calcium 8.7 mg/dL (8.2-10.2) 05/11/18 13:40 Iron 112 ug/dL (40-150) 11/16/17 11:39 TIBC 300 ug/dL (255-450) 11/16/17 09:55 Iron Saturation TNP 11/16/17 09:55 Transferrin 214 mg/dL (180-380) 11/16/17 09:55 Total Bilirubin 0.8 mg/dL (0.3-1.2) 05/11/18 13:40 AST 34 U/L (10-42) 05/11/18 13:40 ALT 29 U/L (10-60) 05/11/18 13:40 Alkaline Phosphatase 91 U/L (32-92) 05/11/18 13:40 Lactate Dehydrogenase 231 U/L (45-190) H 05/11/18 13:40 Serum Total Protein 7.0 g/dL (6.0-8.5) 05/11/18 13:40 Total Protein 6.8 gm/dL (6.1-7.9) 05/11/18 13:40 Albumin 3.5 gm/dL (3.2-5.5) 05/11/18 13:40 Albumin (Send Out) 3.6 g/dL (2.9-4.4) 05/11/18 13:40 Globulin 3.3 gm/dL 05/11/18 13:40 Globulin (PEP) 3.4 g/dL (2.2-3.9) 05/11/18 13:40 Albumin/Globulin Ratio 1.1 05/11/18 13:40 Albumin/Globulin (PEP) 1.1 (0.7-1.7) 05/11/18 13:40 Karuy-5-Jlglhbjco 0.3 g/dL (0.0-0.4) 05/11/18 13:40 Aaiju-4-Fcvogblsx 0.6 g/dL (0.4-1.0) 05/11/18 13:40 Beta Globulins 1.2 g/dL (0.7-1.3) 05/11/18 13:40 Gamma Globulins 1.2 g/dL (0.4-1.8) 05/11/18 13:40 M-Jaspal Not observed g/dL (Not Observed) 05/11/18 13:40 PEP Note (.) 05/11/18 13:40 Triglycerides 110 mg/dL (35-149) 11/16/17 09:55 Cholesterol 186 mg/dL (140-200) 11/16/17 09:55 LDL Cholesterol, Calc 120 mg/dL (0-100) H 11/16/17 09:55 VLDL Cholesterol 22 mg/dL 11/16/17 09:55 HDL Cholesterol 44 mg/dL (35-85) 11/16/17 09:55 Cholesterol/HDL Ratio 4.2 (<5.0) 11/16/17 09:55 25-OH Vitamin D Total 22 ng/mL (.) L 11/16/17 09:55 1,25 Dihydroxy Vit D2 12 ng/mL (.) 11/16/17 09:55 1,25 Dihydroxy Vit D3 10 ng/mL (.) 11/16/17 09:55 Ur Random Creatinine 48.7 mg/dl 05/11/18 13:42 Ur Random Albumin 40.7 % (.) 05/11/18 13:42 U Random Total Protein 19.3 mg/dL (Not Estab.) 05/11/18 13:42 U Owcpw-6-Uxcdyomr (%) 2.1 % (.) 05/11/18 13:42 U Random x-6-Anvfegnx % 7.2 % (.) 05/11/18 13:42 U Random b-Globulin % 16.0 % (.) 05/11/18 13:42 U Random Gamma Glob % 34.1 % (.) 05/11/18 13:42 U Random M-Jaspal (%) 17.1 % (Not Observed) H 05/11/18 13:42 Urine Random PEP Note (.) 05/11/18 13:42 IgG 1201 mg/dL (700-1600) 11/16/17 10:06 IgA 378 mg/dL (87-352) H 11/16/17 10:06 IgM 90 mg/dL (26-217) 11/16/17 10:06 Serum Immunofixation Comment: (.) 05/11/18 13:40 VAHID IgG 1174 mg/dL (700-1600) 05/11/18 13:40 VAHID IgA 336 mg/dL (87-352) 05/11/18 13:40 VAHID IgM 75 mg/dL (26-217) 05/11/18 13:40 Urine Immunofixation (.) 05/11/18 13:42 Free [place] LC, Quant 22.0 mg/L (3.3-19.4) H 05/11/18 13:40 Free Lambda LC, Quant 224.9 mg/L (5.7-26.3) H 05/11/18 13:40 Free [place]/Lambda Ratio 0.10 (0.26-1.65) L 05/11/18 13:40 - Other Results Results/Comments: Unenhanced head CT TECHNIQUE: Contiguous axial imaging of the head. 100 cc of Isovue-[address] exam was performed using one or more the following dose reduction techniques: Automated exposure control, adjustment of the MA and/or Kvaccording to patient size, or use of the iterative reconstruction technique. COMPARISON:None HISTORY: Left-sided neck pain with radiation into the head. Duration for couplemonths. FINDINGS: The ventricles are normal in size and position Adequate cortez-white matter differentiationidentified. No intracranial hemorrhage, mass effect or herniation is identified. No recent vasculardistribution infarction is seen. No abnormal extra-axial fluid collections identified. Sinuses, orbits and mastoid air cells are unremarkable. Bony structures are intact. No pathologic enhancement orenhancing mass identified. Atherosclerosis of carotid siphons identified. IMPRESSION: No acute intracranial findings. 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 --Diagnostic for smoldering myeloma (15% plasma cells by bone marrow biopsy 03/31/2017). She also has high risk cytogenetics and I sent her for consultationwith Dr. Piter [facility]ide[facility] at [facility]. Her persistent thrombocytopenia made her ineligible for any clinical trials, and prevented her from receiving local pain procedures given her chronic low back pain. --05/2017 PET/CT images and reports performed for staging to exclude bone involvement with myeloma. 2 indeterminate areas of uptake thought to be degenerative arthritis vs early bone findings of myeloma (right parietooccipitalarea and upper sternum). She has remained asymptomatic in these areas and we arranged repeat PET/CT at 6 months with CBC, CMP, SPEP and UPEP with immunofixation, serum kappa/lambda light chain analysis, and quantitative immunoglobulins. --No lytic lesion seen on f/u PET/CT 11/2017 and all labs stable. Also had head CT to evaluate for mastoiditis in 03/2018 unremarkable. --Current myeloma labs stable urine M-spike, kappa/lambda ratio, and quant immunoglobuline. Sendingskeletal survey due to shoulder, hand, and right SI joint pain (although likely due to fibromyalgia. Will call with results and sooner f/u if new lytic lesions. If negative, will send for PT/OT to improve painand ROM. For now will follow in 6 months with the same myeloma labs, annual skeletal survey and repeat PET/CT if new lytic lesions seen or worsening/new chronic painsymptoms. 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 I reviewed her outpatient records from [facility] [place], including review of notes, laboratories,and prior bone marrow biopsy 11 years ago. After extensive workup and mild splenomegaly, it is feltthat splenic sequestration due to non-alcoholic steatohepatitis is most likely etiology of thrombocytopenia. Most recent platelet count is worse at 55,000 but no clinical bleeding. She was previouslyreferred to weight reduction clinic and may have slow improvement of steatohepatitis with lifestyle modification. Unless she has active bleeding or planned surgery, we will continue observation with follow at every 6 month f/u visits. --We previously reviewed the results of testing for vitamin B12 and folic acid, both of which were normal, for known history of neuropathy. As noted above, I reviewed the negative M spike on serum protein electrophoresis with immunofixation, but positive for Bence Murray protein on urine protein elec trophoresis. Her Quantitative immunoglobulins IgG, IgA A, and IgM were all within normal limits, however her serum kappa lambda light chain analysis showeda predominance of lambda light chains. Screen for lupus anticoagulant with DRVVT, hexagonal phase phospholipid, anti-cardiolipin IgG and IgA, and beta 2 glycoprotein IgG and IgA was within normal limits. 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 She hasbeen referred to [facility] to attempt weight reduction through diet and exercise that may prevent further fatty infiltration that may further impair her liver function. Continue to follow CMP at 6 month f/u visit. (4) Iron deficiency Status: Chronic She was incidentally found to have iron deficiency based on bone marrow results and I added ferroussulfate 325 mg twice daily to her current medications to treat her chronic fatigue. Patient reducedher dose to once daily past 6 months due to constipation. Now normal hemoglobin--ok to stop supplemental iron and will recheck iron studies only if recurrent anemia. (5) Neutropenia, unspecified Qualifiers: Neutropenia type: unspecified Qualified Code(s): D70.9 - Neutropenia, unspecified Status: Chronic Stable mild neutropenia without infection (current ANC 1000)--unlikely related to smoldering myeloma and no nutritional deficiency. Will continue to follow with every 6 month CBC. (6) Obesity Qualifiers: Body mass index: BMI 40.0-44.9 Status: Chronic KAPADIA--continue f/u in weight reduction clinic. Also may consider bariatric surgery referral if platelet count remains stable. Defer to PCM. (7) Fibromyalgia Status: Chronic Continue f/u with primary physician. New bilateral shoulder pain pending skeletal survey to excludelytic lesions, will call with results. If negative, will start PT/OT and continue oxycodone prescribed by her primary physician. (8) Diabetes mellitus Qualifiers: Diabetes mellitus type: type 2 Diabetes mellitus complication status: without complication Status: Chronic Stable diabetes control. Defer to PCM. - Chemo Plan Chemo Plan (Dose, Rate, Freq): observation of smoldering myeloma weight management clinic referral for nonalcoholic steatohepatitis ferrous sulfate for iron deficiency on bone marrow biopsy--stopped 11/2017. - Time Spent with Patient Greater than 50% of time spent with patient was for coordination of care (as documented) and [id number] counseling of patient and/or family. 25 - 35 minutes Dictated By: Fabiola Marinelli MD DD/ [id number] Signed By: <Electronically signed by Fabiola Marinelli MD> 05/26/18 0652 [facility] Work Phone: [phone] Progress note Author Fabiola Marinelli [facility] November 24, 2017 9:11pmNote Date/TimeJan2017 1:57pm[facility] at [address] [address] Hem/Onc Follow Up Note - OP Signed Patient: Mojgan Pérez MR#: [id number] : 1955 Acct:[id number] Age/Sex: 62 / F Type: REG RCR Copies to: Yinka Lopez MD~ Subjective Date/Time of Service: Date of Service: 11/24/2017 Time of Service: 13:45 Chief Complaint: Patient is here for six month follow up to review test results. - Diagnosis DIAGNOSIS: 1. Chronic mild thrombocytopenia due to cirrhosis from hepatic steatosis (nonalcoholic steatohepatitis--KAPADIA), no masses on hepatic US performed this month. --Patient referred from Barbara Lima nurse practitioner with Dr. Lopez for persistent thrombocytopenia with mild leukopenia. Previously followed at [facility] by Dr. Kumari then Dr. Cummings at [facility]. Prior angioedema with throat tightening after platelet transfusion about6-12 months ago. Requested second opinion regarding her cytopenias 11/06/2016. 2. Mild leukopenia with relative neutropenia without infections. Unremarkable white blood cell precursor morphology on bone marrow aspiration biopsy 03/31/2017. 3. I reviewed outside notes from [facility], patient was last seen in June 2016 there. She was reportedly under the care of Dr. Monroe 2005 with monoclonal gammopathy. Prior bone marrow biopsy performed in 2005 was normal cellular for age (40%) with trilineage hematopoiesis, and showed4% plasma cells at that time. Dysuria sites were unremarkable. Cytogenetic analysis showed no clonal numerical or structural abnormalities. 2 cells with random chromosomal changes felt to be of no clinical significance. The patient was unaware of this diagnosis. 4. Repeat bone marrow biopsy 03/31/2017 reviewed at last visit. Diagnostic for plasma cell myeloma, lambda monoclonal, involving approximately 15% of normal cellular bone marrow for age (30-40%). No evidence of amyloid deposition. Virtually absent stainable iron stores. FISH study for myeloma revealed +1q+, 13q-, 14q-, diminished IGH, and 16q-. Gain of 1q and loss of 16q are both associated with high risk disease and myeloma. Conventional cytogenetics revealed a normal female karyotype. This is consistent with smoldering myeloma. She was referred to Dr. Piter Benavidez on May 07, 2017 and she was not felt to be a clinical trial candidate due to her chronic thrombocytopenia from sequestration dueto cirrhosis. PET/CT showed indeterminate lesions in the right parietal occipital area and sternum which were asymptomatic. No obvious bony lytic disease. No indications for therapy at this time. 5. Patient presents 11/24/2017 to follow-up on PET/CT due to indeterminate lesions of the right parietal occipital area and sternum which were asymptomatic. PET/CT showed no evidence of abnormal FDG uptake. No recent infections, bleeding, or any changes in her history since last visit in May 2017. Past Medical History 1. Anxiety and depression 2. Osteoarthritis 3. Diabetes mellitus, she states she's been on medication for approximately 1- 1/2 years 4. Hypertension 5. COPD, not requiring oxygen or chronic steroids she does not use inhalers daily 6. GERD 7. Fibromyalgia 8. 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 Prior oral contraceptives for8 years and prior hormone replacement therapy for 5 years. Patient cannot recall the year of her hysterectomy. Past Surgical History 1. Hysterectomy for endometriosis 2. Cholecystectomy 3. Appendectomy 4. Carpal tunnel surgery 5. Elbow surgery 6. Knee surgery 7. 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 She is unaccompanied today. Family History Mother of colon cancer at age of 79, father of heart disease and had ahistory of prostatecancer One sister was diagnosed with breast cancer and of this at the age of 52 Brother diagnosed with lung cancer and of this at the age of 65 Sister was diagnosed with colon cancer and is still living She has 3 other sisters who have no history of malignancy. And 2 brothers with no history of malignancy. She reports one daughter and 3 sons without history of malignancy or chronic medical problems HPI: Here for 6 month followup of smoldering myeloma (15% plasma cells by bone marrowbiopsy 05/2017). No infections, bleeding or change in chronic pain from fibromyalgia. Bowels stable, no abdominal pain, no change in appetite. No new complaints over the past 6 months. Testing for lupus anticoagulant return normal 6 months ago--no history of thrombosis. --- This is a 62-year-old lady on chronic disability has a history of arthritis, diabetes mellitus, hypertension, COPD, GERD, and fibromyalgia [facility]. She states that she was followed with Dr. Kumari prior to his senior care and was told that she had an elevated protein level as well as thrombocytopenia but never had clinical bleeding. She is 4 para4 without complicationsand was never told that she was thrombocytopenic while . She is had multiple prior surgicalprocedures without any clinical bleeding. She had been recommended for a pain procedure with Dr. Wilson about one year ago and he declined to do the procedure because her platelet count was less than 100,000. For this reason she received 2 platelet transfusions, with little improvement of her platelet count and her second transfusion resulted in throat tightening due to allergy to platelets . Shehas never been treated with steroids and has never been told that she has immune thrombocytopenia. She is also noted to have mild leukopenia with relative neutropenia, absolute neutrophil count of 400 and mild lymphocytosis. Hemoglobin is normal. She had a prior colonoscopy 2 1/2 years ago that wasunremarkable. She has not had any bright red blood per rectum or epistaxis. She has no history of bleeding within the family however does have a mother and sister diagnosed with colon cancer, a brother diagnosed with lung cancer, and another sister diagnosed with breast cancer. Her other recent complaints include pain in the right hand mainly at the first MCP joint with some associated swelling. She also had recent right foot pain and was evaluated by podiatry. She was toldthat her blood tests were negative for gout. She had screening with MALLORY, CCP, and rheumatoid factorall of which were negative. She says that about 1 1/2 years ago she saw Dr. Petersen for cirrhosis but did not know of any specific therapy. We reviewed these findings from her liver ultrasound ordered by Dr. Benavidez Summer 2016. No new areas of bone pain. She has had no new complaints since her initial consultation with me March 16, 2017. - Summary of Therapies Summary of Therapies: Observation for monoclonal gammopathy of undetermined significance and moderate thrombocytopenia (due to splenic sequestration from KAPADIA cirrhosis). Subjective/ROS - Narrative: Constitutional: No Chills, No Diaphoresis, Fatigue (no change in review of systems since last visit04/14/2017)No Fever, No Malaise, No Night Sweats, No Weakness, No Weight Gain, No Weight Loss (2 kg weight loss past 2 months) Gastrointestinal: No Abdominal Pain, No Black Stool, No Bloating, No Bloody Stool, No Constipation,No Diarrhea, No Dysphagia, No Hematemesis, No Nausea, NoPostprandial Pain, No Rectal Bleeding, No Rectal Pain, No Vomiting, Other (chronic gastroesophageal reflux stable) Cardiovascular: No Chest Pain, No Edema, No Palpitations, No Syncope Genitourinary: No Discharge, No Dysuria, No Flank Pain, Frequency (chronic andunchanged)No Hematuria, No Incontinence, No Nocturia, No Urgency, No Urinary Retention Musculoskeletal: Back Pain (chronic with pain radiating everywhere per prioroutpatient visits)No Chest Wall Tenderness, Joint Pain (right index MCP joint as per HPI above, right foot pain slowly improving due to recent bone spurs per podiatry) Joint Swelling (right index MCP joint) Muscle Stiffness Myalgia (history of fibromyalgia)No Neck Pain (reports known cervical disc disease) HEENT: No Blurred Vision, No Discharge, No Ear Pain, No Epistaxis, No Rhinorrhea, No Sore Throat Respiratory: No Cough, No Hemoptysis, No Shortness of Breath (chronic and unchanged due to COPD), No Sputum, No Wheezing Neurological: No Dizziness, No Headache, Numbness (reports long-standing bilateral foot numbness)NoPre-existing Deficit (no history of stroke or seizure), Tingling Hematologic/Lymphatic: No Bleeds Easily, Bruises EasilyNo Enlarged Lymph Nodes, Other (reports allergy to prior platelet transfusion) Endocrine: Excessive Sweating (hot flashes, postmenopausal) FlushingNo Intolerance to Cold, Intolerance to Heat Psychiatric: No Depressed Mood, No Insomnia Integumentary: No Jaundice, No Lesions, No Rash Allergic/Immunology: No Pruritus ROS Details: All systems reviewed & no additional complaints except as documented Home Medications & Allergies Allergies Allergy/AdvReac Type Severity Reaction Status Date / Time latex Allergy Unknown Verified 11/20/17 15:23 Reaction Quinolones Allergy Unknown Verified 11/20/17 15:23 Reaction tetracycline Allergy Unknown Verified 11/20/17 15:23 Reaction Home Medications Medication Instructions Recorded Confirmed Type carvedilol 1 tab PO DAILY 11/20/17 11/20/17 History duloxetine 1 tab PO DAILY 11/20/17 11/20/17 History insulin detemir [Levemir FlexTouch] 22 units SUB-Q DAILY 11/20/17 11/20/17 History oxycodone 1 tab PO TID PRN 11/20/17 11/20/17 History rosuvastatin 1 tab PO DAILY 11/20/17 11/20/17 History albuterol sulfate 2 puff INHALATION Q6H 11/24/17 11/24/17 History albuterol sulfate [ProAir HFA] 1 puff INHALATION Q4-6H PRN 11/24/17 11/24/17 History fluticasone-salmeterol [Advair 1 inh INHALATION Q12H 11/24/17 11/24/17 History Diskus] omeprazole magnesium [Prilosec OTC] 40 mg PO DAILY 11/24/17 11/24/17 History Objective - Resuscitation Status Resuscitation Status: Full Code - Height/Weight Height/Weight: Height 5 ft 2.2 in Weight 243 lb - Vital Signs Vital Signs: Last Vital Signs Temp 97.5 F L 11/24/17 13:35 Pulse 81 11/24/17 13:35 Resp 18 11/24/17 13:35 BP 146/89 H 11/24/17 13:35 Pulse Ox 98 11/24/17 13:35 - Pain Bilateral Leg Pain Intensity: 4 - Emotional Needs Assessment Emotional Needs Assessment: Emotional Needs Identified? No Distress Screening Total 0 - ECOG Performance Status ECOG Score: 1 Physical Exam - Constitutional no acute distress, obese, no chronically ill appearing, cooperative, no somnolent, no obtunded - Routine HEENT Exam Head: normocephalic, atraumatic, no cushingoid faces Eye: EOMI, PERRL, normal accommodation, no conjunctival icterus, no scleral injection ENT: mucous membranes moist, oropharynx clear, dentition normal, nares patent, no sinus tenderness - Routine Neck Exam supple, full ROM, no lymphadenopathy, no thyromegaly, no tenderness - Routine Chest/Breast/Axilla Exam Chest wall: no tenderness, no mass Axillae: no lymphadenopathy, no mass - Routine Respiratory Exam no accessory muscle use, no decreased breath sounds, CTA bilaterally, no rales, no respiratory distress, no rhonchi, no wheezes - Routine Cardiovascular Exam RRR, no murmur, no gallop, no irregular rhythm - Routine Abdominal Exam soft, normoactive bowel sounds, no tenderness, no distended, no organomegaly, nomass - Routine Exam Groin: Absent: inguinal lymphadenopathy - Routine Extremities Exam Present: full ROM, pulses intact, normal capillary refill. Absent: cyanosis, clubbing, edema, calf tenderness, tenderness - Routine Back/Spine/Pelvis Exam Back/Spine: Present: full ROM, paraspinal tenderness - Due to known fibromyalgia, stable. Absent: CVA tenderness, vertebral tenderness - Routine Skin Exam Present: intact, dry, warm, normal turgor. Absent: cyanosis, erythema, lesions,jaundice - Routine Neurological Exam Present: alert, oriented X3, CN II-XII intact, normal reflexes, moving all extremities, normal speech. Absent: abnormal gait - Routine Psychiatric Exam Present: normal affect, normal thought process, cooperative. Absent: depressed,anxious Results - Labs CBC & Chem 7: 11/16/17 10:06 11/16/17 11:39 Labs: Laboratory Last Values WBC 3.7 X10E3/uL (3.8-11.6) L 11/16/17 10:06 RBC 4.51 x10E6/uL (3.60-5.00) 11/16/17 10:06 Hgb 14.0 g/dL (11.8-15.4) 11/16/17 10:06 Hct 40.4 % (34.0-46.4) 11/16/17 10:06 MCV 89.6 fl (80-100) 11/16/17 10:06 MCH 31.0 pg (24.7-34.3) 11/16/17 10:06 MCHC 34.6 g/dL (32.0-35.0) 11/16/17 10:06 RDW 14.3 % (11.9-15.3) 11/16/17 10:06 Plt Count 90 x10E3/uL (150-450) L 11/16/17 10:06 MPV 8.8 fl (6.3-10.7) 11/16/17 10:06 Neut % (Auto) 35.4 % (.) 11/16/17 10:06 Lymph % (Auto) 52.9 % (.) 11/16/17 10:06 Hodgeman % (Auto) 6.5 % (.) 11/16/17 10:06 Eos % (Auto) 5.0 % (.) 11/16/17 10:06 Baso % (Auto) 0.2 % (.) 11/16/17 10:06 Neut # (Auto) 1.3 x10E3/uL (1.8-7.7) L 11/16/17 10:06 Lymph # (Auto) 1.9 x10E3/uL (1.00-4.8) 11/16/17 10:06 Hodgeman # (Auto) 0.2 x10E3/uL (0.0-0.8) 11/16/17 10:06 Eos # (Auto) 0.2 x10E3/uL (0.0-0.45) 11/16/17 10:06 Baso # (Auto) 0.0 x10E3/uL (0.0-0.2) 11/16/17 10:06 PHA Creatinine Clear N/A 11/16/17 09:55 Sodium 137 mmol/L (136-146) 11/16/17 09:55 Potassium 3.6 mmol/L (3.5-5.1) 11/16/17 11:39 Chloride 103 mmol/L (95-114) 11/16/17 09:55 Carbon Dioxide 27.9 mmol/L (22.0-30.0) 11/16/17 09:55 BUN 8 mg/dL (9-23) L 11/16/17 09:55 Creatinine 0.51 mg/dL (0.44-1.03) 11/16/17 09:55 Est GFR ( Amer) > 60 11/16/17 09:55 Est GFR (Non-Af Amer) > 60 11/16/17 09:55 Glucose 145 mg/dL (70-100) H 11/16/17 09:55 POC Glucose 134 mg/dl 11/16/17 09:33 Estimat Average Glucose 180 mg/dL 11/16/17 09:55 Hemoglobin A1c 7.9 % (4.3-5.6) H 11/16/17 09:55 Calcium 8.5 mg/dL (8.2-10.2) 11/16/17 09:55 Iron 112 ug/dL (40-150) 11/16/17 11:39 TIBC 300 ug/dL (255-450) 11/16/17 09:55 Iron Saturation TNP 11/16/17 09:55 Transferrin 214 mg/dL (180-380) 11/16/17 09:55 Total Bilirubin 0.9 mg/dL (0.3-1.2) 11/16/17 11:39 AST 33 U/L (10-42) 11/16/17 11:39 ALT 27 U/L (10-60) 11/16/17 11:39 Alkaline Phosphatase 92 U/L (32-92) 11/16/17 11:39 Serum Total Protein 6.9 g/dL (6.0-8.5) 11/16/17 10:06 Total Protein 6.2 gm/dL (6.1-7.9) 11/16/17 09:55 Albumin 3.4 gm/dL (3.2-5.5) 11/16/17 09:55 Albumin (Send Out) 3.4 g/dL (2.9-4.4) 11/16/17 10:06 Globulin 2.8 gm/dL 11/16/17 09:55 Globulin (PEP) 3.5 g/dL (2.2-3.9) 11/16/17 10:06 Albumin/Globulin Ratio 1.2 11/16/17 09:55 Albumin/Globulin (PEP) 1.0 (0.7-1.7) 11/16/17 10:06 Seidx-4-Mgqbvpihu 0.3 g/dL (0.0-0.4) 11/16/17 10:06 Uwlmh-9-Ebrluswcj 0.6 g/dL (0.4-1.0) 11/16/17 10:06 Beta Globulins 1.2 g/dL (0.7-1.3) 11/16/17 10:06 Gamma Globulins 1.3 g/dL (0.4-1.8) 11/16/17 10:06 M-Jaspal Not observed g/dL (Not Observed) 11/16/17 10:06 PEP Note (.) 11/16/17 10:06 Triglycerides 110 mg/dL (35-149) 11/16/17 09:55 Cholesterol 186 mg/dL (140-200) 11/16/17 09:55 LDL Cholesterol, Calc 120 mg/dL (0-100) H 11/16/17 09:55 VLDL Cholesterol 22 mg/dL 11/16/17 09:55 HDL Cholesterol 44 mg/dL (35-85) 11/16/17 09:55 Cholesterol/HDL Ratio 4.2 (<5.0) 11/16/17 09:55 25-OH Vitamin D Total 22 ng/mL (.) L 11/16/17 09:55 1,25 Dihydroxy Vit D2 12 ng/mL (.) 11/16/17 09:55 1,25 Dihydroxy Vit D3 10 ng/mL (.) 11/16/17 09:55 Ur Random Creatinine 63.8 mg/dl 11/16/17 10:06 Ur Random Albumin 33.7 % (.) 11/16/17 10:06 U Random Total Protein 7.9 mg/dL (Not Estab.) 11/16/17 10:06 U Hbnll-9-Sbcbexhn (%) 4.8 % (.) 11/16/17 10:06 U Random m-0-Paejesng % 9.0 % (.) 11/16/17 10:06 U Random b-Globulin % 36.5 % (.) 11/16/17 10:06 U Random Gamma Glob % 16.1 % (.) 11/16/17 10:06 U Random M-Jaspal (%) 7.4 % (Not Observed) H 11/16/17 10:06 Urine Random PEP Note (.) 11/16/17 10:06 IgG 1201 mg/dL (700-1600) 11/16/17 10:06 IgA 378 mg/dL (87-352) H 11/16/17 10:06 IgM 90 mg/dL (26-217) 11/16/17 10:06 Free [place] LC, Quant 30.1 mg/L (3.3-19.4) H 11/16/17 10:06 Free Lambda LC, Quant 222.8 mg/L (5.7-26.3) H 11/16/17 10:06 Free [place]/Lambda Ratio 0.14 (0.26-1.65) L 11/16/17 10:06 - Other Results Results/Comments: PET/CT FUSION IMAGING CLINICAL INFORMATION: Myeloma, restaging. [...] physiologic tracer uptake of the urinary tract isnoted. Moderate physiologic intestinal uptake is also demonstrated. 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 --Diagnostic for smoldering myeloma (15% plasma cells by bone marrow biopsy 03/31/2017). She also has high risk cytogenetics and I sent her for consultationwith Dr. Piter [facility] at [facility]. Her persistent thrombocytopenia made her ineligible for any clinical trials, and prevented her from receiving local pain procedures given her chronic low back pain. --05/2017 PET/CT images and reports performed for staging to exclude bone involvement with myeloma. 2 indeterminate areas of uptake thought to be degenerative arthritis vs early bone findings of myeloma (right parietooccipitalarea and upper sternum). She has remained asymptomatic in these areas and we arranged repeat PET/CT at 6 months with CBC, CMP, SPEP and UPEP with immunofixation, serum kappa/lambda light chain analysis, and quantitative immunoglobulins. --No lytic lesion seen on 6 month f/u PET/CT and all labs stable. For now will follow with the samemyeloma labs, annual skeletal survey and repeat PET/CT if new lytic lesions seen or worsening/new chronic pain symptoms. 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 I reviewed her outpatient records from [facility], including review of notes, laboratories,and prior bone marrow biopsy 11 years ago. After extensive workup and mild splenomegaly, it is feltthat splenic sequestration due to non-alcoholic steatohepatitis is most likely etiology of thrombocytopenia. Most recent platelet count is mildly improved at 90,000. She was previously referred to weight reduction clinic and may have slow improvement of steatohepatitis with lifestyle modification. Will continue to follow at every 6 month f/u visits. --We previously reviewed the results of testing for vitamin B12 and folic acid, both of which were normal, for known history of neuropathy. As noted above, I reviewed the negative M spike on serum protein electrophoresis with immunofixation, but positive for Bence Murray protein on urine protein elec trophoresis. Her Quantitative immunoglobulins IgG, IgA A, and IgM were all within normal limits, however her serum kappa lambda light chain analysis showeda predominance of lambda light chains. Screen for lupus anticoagulant with DRVVT, hexagonal phase phospholipid, anti-cardiolipin IgG and IgA, and beta 2 glycoprotein IgG and IgA was within normal limits. 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 She hasbeen referred to [facility] to attempt weight reduction through diet and exercise that may prevent further fatty infiltration that may further impair her liver function. Continue to follow CMP at 6 month f/u visit. (4) Iron deficiency Status: Chronic She was incidentally found to have iron deficiency based on bone marrow results and I added ferroussulfate 325 mg twice daily to her current medications to treat her chronic fatigue. Patient reducedher dose to once daily past 6 months due to constipation. Now normal hemoglobin--ok to stop supplemental iron and will recheck iron studies only if recurrent anemia. (5) Neutropenia, unspecified Qualifiers: Neutropenia type: unspecified Qualified Code(s): D70.9 - Neutropenia, unspecified Status: Chronic Stable mild neutropenia without infection--unlikely related to smoldering myeloma and no nutritional deficiency. Will continue to follow with every 6 month CBC. (6) Obesity Qualifiers: Body mass index: BMI 40.0-44.9 Status: Chronic KAPADIA--continue f/u in weight reduction clinic. Also may consider bariatric surgery referral if platelet count remains stable. Defer to PCM. (7) Fibromyalgia Status: Chronic Continue f/u with primary physician. Chronic pain without new symptoms and unremarkable PET/CT. (8) Diabetes mellitus Qualifiers: Diabetes mellitus type: type 2 Diabetes mellitus complication status: without complication Status: Chronic Stable diabetes control. Defer to PCM. - Chemo Plan Chemo Plan (Dose, Rate, Freq): observation of smoldering myeloma weight management clinic referral for nonalcoholic steatohepatitis ferrous sulfate for iron deficiency on bone marrow biopsy. - Time Spent with Patient Greater than 50% of time spent with patient was for coordination of care (as documented) and [id number] counseling of patient and/or family. 25 - 35 minutes Dictated By: Fabiola Marinelli MD DD/ [id number] Signed By: <Electronically signed by MD Faboila Marinelli> 11/24/[address] [facility] Work Phone: Consult note Author Fabiola Marinelli [facility] January 28, 2023 3:19pmNote Date/TimeMarch 2022 9:58[place] [address] Hem/Onc Consult Note - IP Signed with Addmaria teresa Patient: Mojgan Pérez MR#: [id number] : 1955 Acct:[id number] Age/Sex: 67 / F Adm Date: 3 Loc: Room: [address] [place] [address] Type: ADM IN Attending Dr: Vicente Linton DO Copies to: MD Yinka Downey MD Mary K Demboske, APRN Shawn J Warner, DO~ ADDENDUM1 I personally interviewed and examined patient and agree with assessment by TONYA Gallagher below. Addendum Documented By: MD Fabiola Marinelli 01/28/231518 Addendum Signed By: <Electronically signed by MD Fabiola Marinelli> 01/28/231518 HPI Consult Date: 01/28/2023 Requesting Provider: Vicente Linton DO Reason for Consult: thrombocytopenia History of Present Illness: Johana is a 67 year old female well known to our clinic as she follows with Dr. Marinelli for her multiplemyeloma. Her Kyprolis and Cytoxan have been held since the beginning of December d/t her cytopenias. Most recent outpatient notes documented below. She notes a new onset or suprapubic pain and dysuria last night as well as some hematuria so presented to the ER overnight. She was diagnosed with a UTI, initiated on IV Rocephin and admitted for further management. Labs reveal continued cytopenias with platelets back down to 35,000 but improved hemoglobin at 11.1 and wbc 3.0. She denies fevers, chills, sweats. She recently had been diagnosed with sinusitis and has been on aZ-emiliano for this, still with some greenish mucous. Shereports previous diarrhea a few days ago that has since resolved. Otherwise no new complaints. Most recent outpatient visits: 01/09/2023: Here for followup after consult with Dr. Benavidez last week. Progress note is still pending, but we communicated by secure text regarding her evaluation. Myeloma labs are stable with mild increase of serum kappa from 40s to 60s range. Platelet count now to 68 and ANC 900 since holding Kyprol is/Cytoxan since 12/05/2022 for cytopenias. We decided to hold 2 more weeksthen resume Kyprolis at same dose 20mg/m2 and further decrease Cytoxan to 40% dose overall when we resume dose. Next line of therapy at progression may be CD3/BCMA myeloma bispecific antibody Teclistamab (needs to be hospitalized firstweek due to risk of cytokine release syndrome). Plan to resume likely in 2 weeks if adequate blood counts and no infection. F/u with myeloma labs (CBC, CMP, quant immunoglobulins and kappa/lambda light chains) in 2 months, sooner prn. Moderate complexity 30 minute followup. 12/26/2022: Mojgan continues to have nasal drainage sinus congestion and pain despite completing 2 weeks of amoxicillin and no air-fluid level on CT Sinuses 11/30/2022. We gave last dose of Kyprolis/Cytoxan (60% dose) on 12/05/2022. Peripheral neuropathy is stable, no diarrhea, no skin rashes. We reviewed her labs with ANC 900, platelets 37,000 and she notes easy bruising but no nasal/oral mucosal, GI or bleeding. I will again hold Kyprolis/Cytoxan another 2 weeks and give 2 weeks of Augmentin 875/125mg bid for her persistent sinus infection and Diflucan 100mg daily for vaginal candidiasis. Will formallyrefer back to Dr. Benavidez to see if she is a candidate for the CD3/BCMA myeloma bispecificantibody therapy which she would need to receive at [facility] [facility] [place]. F/u with me in 2 weeks--if persistent cytopenias we may need torepeat her bone marrow biopsy (if now performed by Dr. Benavidez). She agrees with this plan over this 35 min moderate complexity followup visit. 11/26/2022: Mojgan is here for monthly followup on modified CYKLONE therapy. Notes increased frontal headaches over the past with with nasal congestion--sending for sinus CT and 2 week course of Augmentin bid. Platelet count recently dropped as low as 25-31,000 without bleeding (currently 40,000), WBC to 1300 with ANC 700. No current fever, chills or symptoms of infection. Prior dose reductions of Kyprolis to 20mg/m2 weekly with cyclophosphamide 240mg/m2 weekly). Echo with normal EF 55-60%. We will further dose reduce cyclophosphamide to 180mg/m2 (overall 40% dose reduction) and maintain Kyprolis at 20mg/m2. She has ongoing decline of lambda light chains over the past 6 months indicating response. I discussed her case with Dr. Piter Benavidez who notedtherapy could be held if worsening cytopenias. For now continue monthly followup with myeloma labs (quant immunoglobulins and kappa/lambda light chains). Bleeding precautions and f/u sooner if new symptoms arise. Moderate complexity 35-minute visit for review of complex labs and adjustment of chemotherapy regimen. MEDICAL ONCOLOGY PHYSICIAN NOTE 01/28/2023: Mojgan is well-known to me from follow-up for multiple myeloma and pancytopenia which is known to be due to nonalcoholic steatohepatitis with cirrhosis and has been present for many years. She has had limited options for myeloma therapy given her chronic thrombocytopenia. Until recentlyradha had not had frequent infections, however she has been seen as an outpatient with treatment for recurrent sinusitis, vaginal candidiasis, and she called the after-hours line last night noting sudden onset of dysuria. She presented to the emergency department and had hematuria with dysuria and urine appeared consistent with UTI. Urine and blood cultures are pending at this time and she is covered with Rocephin. As noted above she has not had active therapy for hermyeloma due to her recent cytopenias and sinus infections. 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 Today we discussed treating her with outpatient IV immunoglobulin due to her more frequentinfections. Patients who have myeloma typically do have a concern with hyperviscosity utilizing IVIG, however this patient has nonsecretory myeloma andshould not have risk of hyperviscosity. We will continue to follow her as an inpatient and hold her chemotherapy that is scheduled this Thursday for 1more week. We will send prior authorization for outpatient IVIG and potentially resume her chemotherapy the following Thursday if infection is improved. -- Today we reviewed informed consent for IVIG. We discussed risks of infection, allergic/infusion reactions, anemia, skin rashes, myalgias, respiratory issues, swelling. She signed informed consent and will receive thisas an outpatient. [facility] - Medical History Medical History: Medical History (Last Reviewed 01/28/23 @ 05:43 by Sherif Ravi DO) Aortic aneurysm COPD (chronic obstructive pulmonary disease) Diabetes Fibromyalgia GERD (gastroesophageal reflux disease) Hypertension Iron deficiency Multiple myeloma Neutropenia Smoldering multiple myeloma (SMM) Smoldering myeloma Temporary low platelet count - Surgical History Surgical History: Surgical History (Last Reviewed 01/28/23 @ 05:43 by Sherif Ravi DO) H/O: hysterectomy History of appendectomy History of cholecystectomy - Family History Family History: Family History (Last Updated 01/28/23 @ 05:43 by Sherif Ravi DO) Other COPD (chronic obstructive pulmonary disease) - Social History Smoking Status: Former smoker Tobacco Type: cigarettes Substance Use Type: None Social History Comments: Lives with son sharonda bustos Allergies & Medications Allergies erythromycin base [From E-Mycin] Allergy (Verified 01/28/23 06:28) Hives latex Allergy (Verified 01/28/23 00:22) Unknown Reaction moxifloxacin [From Avelox] Allergy (Verified 01/28/23 00:22) Hives Quinolones Allergy (Verified 01/28/23 00:22) Unknown Reaction tetracycline Allergy (Verified 01/28/23 00:22) Unknown Reaction Home Medications carvedilol 12.5 mg tablet 12.5 mg PO BID 11/20/17 [History Confirmed 01/28/23] duloxetine 60 mg capsule,delayed release 60 mg PO DAILY 11/20/17 [History Confirmed 01/28/23] insulin detemir U-100 100 unit/mL (3 mL) subcutaneous pen 22 units subcut DAILY PRN Hyperglycemia 11/20/17 [History Confirmed 01/28/23] oxycodone 10 mg tablet 10 mg PO BID PRN Pain 11/20/17 [History Confirmed 01/28/23] albuterol sulfate 90 mcg/actuation aerosol inhaler 2 puff inhalation Q6H PRN Shortness Of Breath 11/24/17 [History Confirmed 01/28/23] omeprazole magnesium 20 mg tablet,delayed release (Prilosec OTC) 40 mg PO DAILY 11/24/17 [History Confirmed 01/28/23] metformin 500 mg tablet,extended release 24 hr 500 mg PO BID 03/05/20 [History Confirmed 01/28/23] semaglutide 0.25 mg or 0.5 mg (2 mg/1.5 mL) subcutaneous pen injector (Ozempic) 1 mg subcut QWEEK 09/24/20 [History Confirmed 01/28/23] vitamin B12 0.5 mg-folic acid 1 mg tablet 1 tab PO DAILY 03/28/21 [History Confirmed 01/28/23] lactulose 20 gram/30 mL oral solution 20 g (30 mL) PO BID PRN Constipation #600 mL 04/09/22 [Rx Confirmed 01/28/23] acyclovir 400 mg tablet 400 mg PO BID 90 days #180 tabs 09/24/22 [Rx Confirmed 01/28/23] potassium chloride 10 mEq capsule,extended release 10 meq PO DAILY #30 caps 11/18/22 [Rx Confirmed 01/28/23] loratadine 10 mg tablet (Claritin) 10 mg PO DAILY 12/26/22 [History Confirmed 01/28/23] azithromycin 250 mg tablet (Zithromax Z-Emiliano) 0 mg PO .COMPLEX #6 tabs 01/26/23 [Rx Confirmed 01/28/23] cyanocobalamin (vitamin B-12) 1,000 mcg sublingual tablet 1,000 mcg sublingual DAILY 01/28/23 [History Confirmed 01/28/23] dexamethasone 4 mg tablet 20 mg PO DIRECTED PRN Systemic Signs And Symptoms 01/28/23 [History Confirmed 01/28/23] fluticasone propionate 50 mcg/actuation nasal spray,suspension 1 spray intranasal DAILY PRN AllergySymptoms 01/28/23 [History Confirmed 01/28/23] insulin aspart U-100 100 unit/mL (3 mL) subcutaneous pen (Novolog FlexPen U-100 Insulin aspart) 25 unit subcut DAILY PRN Hyperglycemia 01/28/23 [History Confirmed 01/28/23] lisinopril 5 mg tablet 5 mg PO DAILY 01/28/23 [History Confirmed 01/28/23] ondansetron 8 mg disintegrating tablet 8 mg PO TID PRN Nausea 01/28/23 [History Confirmed 01/28/23] Physical Exam - Physical Exam Vital signs: Temp Pulse Resp BP Pulse Ox O2 Del Method 98.2 F 81 16 151/88 H 95 Room Air 01/28/23 08:00 01/28/23 08:00 01/28/23 08:00 01/28/23 08:00 01/28/23 08:00 01/28/23 08:40 CONSTITUTIONAL: The patient is in no acute distress. HEAD / FACE: Normocephalic. EYES: Pupils are equal and reactive to light. Conjunctivae and lids are benign in appearance. Ocular movement intact. EARS: Hearing grossly intact. NOSE / MOUTH / THROAT: Nose, mouth, tongue and oropharynx are benign in appearance. No signs of inflammation. NECK / THYROID: Neck is supple. Thyroid is symmetrical, without thyromegaly, masses or palpable nodules. RESPIRATORY: Normal to inspection. Lungs clear to auscultation and percussion. No wheezing, rales, rhonchi or rubs. Normal effort. CARDIOVASCULAR: Regular rate and rhythm. No murmurs, gallops, or rubs. ABDOMEN: Bowel sounds normoactive. Soft, non-distended. No splenomegaly. No palpable masses. INTEGUMENTARY: The skin is unremarkable. No rashes. No suspicious lesions MUSCULOSKELETAL: Normal musculature, no joint deformities or abnormalities, normal range of motion for all four extremities. EXTREMITIES: No cyanosis or clubbing. NEUROLOGICAL: Alert and oriented. Cranial nerves intact. No gross motor or sensory deficits. PSYCHIATRIC: No anxiety or evidence of depression. Results - Labs Lab Results: 01/28/23 01:10: Slides for Path Review Cancelled 01/28/23 01:10: PHA Creatinine Clear 69.42, Sodium 139, Potassium 3.4 L, Chloride 105, Carbon Dioxide 28.8, Anion Gap 8.6, BUN 12, Creatinine 0.39 L, EstGFR (CKD-EPI) > 60.0, Glucose 105 H, Calcium 8.7 01/28/23 01:10: Corrected WBC 3.0 L, Uncorrected WBC Count 3.0 L, RBC 3.24 L, Hgb 11.1 L, Hct 32.2 L, MCV 99.5, MCH 34.2, MCHC 34.3, RDW 14.7, Plt Count 35 L*, MPV 9.3, Neut % (Auto) 64.8, Lymph % (Auto) 20.4, Hodgeman % (Auto) 12.3, Eos % (Auto) 2.4, Baso % (Auto) 0.1, Nucleat RBC Rel Count 0.4, Neut # (Auto) 1.9, Lymph # (Auto) 0.6 L, Hodgeman # (Auto) 0.4, Eos # (Auto) 0.1, Baso # (Auto) 0.0, MonocyteDist Width 19.52, Platelet Estimate Decreased, Plt Morphology Comment Normal, RBC Morphology N/A, Poikilocytosis Moderate, Tear Drop Cells Slight, Ovalocytes Moderate 01/28/23 00:29: Urine Color Dark yellow A, Urine Appearance Turbid A, Urine pH 5.5, Ur Specific [place] 1.023, Urine Protein >=1000 H, Urine Glucose (UA) Normal, Urine Ketones Trace H, Urine Occult Blood 3+ H, Urine Nitrite Negative, Urine Bilirubin Negative, Urine Urobilinogen Normal, Ur Leukocyte Esterase 3+ H,Urine RBC 50-100 H, Urine WBC Innumerable H, Ur Squamous Epith Cells 3-4 H, Other Crystals None seen, Urine Bacteria 3+ H, Hyaline Casts 0-8 Assessment & Plan (1) Hypogammaglobulinemia She has had hypogammaglobulinemia for the last year, but has not had prior IVIG as she has not had previous admissions for infections. Recently, she has had recurrent sinusitis at least 3 times and now is admitted with a UTI. She is low risk for hyperviscosity. Her recent IgG was 311 on 01/01/23. We will plan for IVIG starting in the outpatient setting next week. (2) UTI (urinary tract infection) She presented to the ER overnight with new suprapubic pain, dysuria and hematuria. UA was positive for UTI and she was initiated on IV Rocephin -- continue treatment per hospitalist team (3) Multiple myeloma Qualifiers: Multiple myeloma remission status: not in remission Qualified Code(s): C90.00 - Multiple myeloma not having achieved remission Originally diagnosed 2019 after observation for smoldering myeloma and moderate thrombocytopenia (due to splenic sequestration from KAPADIA cirrhosis) summer 2016- 02/03/2020. She underwent a single dose of palliative radiation therapy to bilateral hips. Then deferred active therapy for myeloma 2 months given COVID- 19. She initiated on Velcade, Dex and Daratumumab at that time for initial therapy. She progressed on this and received multiple subsequent lines of therapy. More recently, she did not tolerate Pomalyst and was initiated on Kyprolis/Cytoxan/Dex in July 2022, which she has remained on until recently. Kyprolis/Cytoxan have been held since early December d/t cytopenias. The plan will be to resume therapy next week, 02/06/2023, if her counts improve and plannedreduced dose of Cytoxan. Dr. Benavidez is in agreement with her plan from most recent communication with Dr. Marinelli. She may be a future candidatefor bispecific antibody Teclistamab (needs to be hospitalized first week due to riskof cytokine release syndrome). 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 Platelets 37,000-->68,000. Plan to resume 02/06 with cytoxan dose reduction if improving cytopenias. She may be a future candidate for bispecific antibodies for multiple myeloma. Still has no active bleeding beyond the small amount of hematuria d/t UTI. No significant bruising. - Time Spent with Patient Greater than 50% of time spent with patient was for coordination of care (as documented) and [id number] counseling of patient and/or family. Documented By: Shannon Gallagher APRN 01/28/23 09 57 Signed By: <Electronically signed by KEITH Gallagher> 01/28/23 1413 <Electronically signed by MD Fabiola Marinelli> 01/28/23 1456 [facility] Work Phone: Discharge summary Author Vicente Linton [facility] January 29, 2023 6:22pmNote Date/TimeMar2022 6:22[place] [address] Discharge Summary Signed Patient: Mojgan Pérez MR#: [id number] : 1955 Acct:[id number] Age/Sex: 67 / F Adm Date: 3 Loc: Room: [address] [place] [address]: Vicente Linton DO Copies to: MD Vicente Amezquita, DO~ Providers Date of Admission: 01/28/23 Date of Discharge: 01/29/23 Discharging Provider: Vicente Linton Primary Care Provider: Yinka Lopez Consults: 01/28/23 05:52 Consult to Oncology Routine Discharge Diagnosis (1) UTI (urinary tract infection): (2) Hypogammaglobulinemia: (3) Multiple myeloma: (4) 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 She described little streak of blood on the toilet paper, she subsequently cameto the hospital and in the ER was found to have UA suggestive of UTI. She also has chronic pancytopenia and leukopenia due to multiple myeloma and ongoing treatment. Due to her history of current treatment and the after mentioned lymphopenia and pancytopenia,she was admitted to hospital for IV antibiotics and was expected to stay more than 2 midnights for adequate treatment. The patient was started on ceftriaxone as well as Pyridium for treatment of her UTI as well as the painful sensation in her urethra she began feeling better, Oncology was consultedand recommended continuing current therapy, there is alsodiscussion about her her most myeloma treatment and utilizing IVIG in the outpatient setting here shortly. Due to the patient's improvement inher symptoms she was subsequently discharged the afternoon of January 29 and instructed to continue Ke flex 5 mg twice daily for 5 more days, she did receive 2 doses of IV ceftriaxone. She was at high risk for further acute deteriorationand/or sepsis secondary to the UTI if she were to be treated in the outpatient setting with oral antibiotics only. I did explain to her the need for IV antibiotics and now that she has adequate blood levels of the antibiotic, these can be maintained with oral antibiotics and that she will be on extended course due to her medical history. This was explained to her, patient understood the need for further antibiotics, her friend are at bedside as well. Patient was discharged safely after the January 29. Condition Condition at Discharge: Stable Time Spent with Patient Time spent providing/coordinating discharge services (# min): 35 Diagnostic Studies Completed and Pending Studies Pending studies at discharge: 01/28/23 00:29 Urine Culture Stat 01/28/23 09:50 Blood Culture Routine Preliminary micro results at discharge 01/28/23 09:50 Blood Culture - Preliminary Blood - Port No Growth 1 Day Bacterial ID (NA Multiplex Assay) - Pending 01/28/23 00:29 Urine Culture - Preliminary Urine - Clean-Voided Midstream Escherichia coli 01/28/23 06:52 Blood Culture - Preliminary Blood - Left Hand No Growth 1 Day Labs on day of discharge: 01/29/23 05:35: PHA Creatinine Clear 70.06, Sodium 143, Potassium 3.3 L, Chloride 108 H, Carbon Dioxide 31.2 H, Anion Gap 7.1, BUN 13, Creatinine 0.37 L,Est GFR (CKD-EPI) > 60.0, Glucose 93, Calcium 8.8 01/29/23 05:35: Corrected WBC 1.6 L, Uncorrected WBC Count 1.6 L, RBC 3.02 L, Hgb 10.4 L, Hct 30.2 L, MCV 100.0, MCH 34.4 H, MCHC 34.4, RDW 14.3, Plt Count 25L*, MPV 7.9, Neut % (Auto) 53.7, Lymph % (Auto) 30.8, Hodgeman % (Auto) 11.4, Eos % (Auto) 3.9, Baso % (Auto) 0.2, Nucleat RBC Rel Count 0.5, Neut # (Auto) 0.8 L, Lymph # (Auto) 0.5 L, Hodgeman # (Auto) 0.2, Eos # (Auto) 0.1, Baso # (Auto) 0.0, Platelet Estimate Decreased, Plt Morphology Comment Normal, RBC Morphology N/A, Polychromasia Slight, Anisocytosis Slight, Tear Drop Cells Slight, Ovalocytes Slight Exam Physical Exam Vital Signs: Temp Pulse Resp BP Pulse Ox O2 Del Method 98.5 F 86 18 137/82 96 Room Air 01/29/23 12:01/29/23 12:01/29/23 12:01/29/23 12:01/29/23 12:01/29/23 12:09 Narrative: General: Awake alert, friend at bedside HEENT: head atraumatic, normocephalic, moist mucous membranes, normal nose and ears, no throat lesions, normal conjunctiva Neck: supple no masses, no lymphadenopathy CVS: regular rate and rhythm, no murmurs or gallops Respiratory: clear to auscultation bilaterally, no wheezing or crackles, symmetric expansion GI: soft, nondistended, nontender, positive bowel sounds with no organomegaly. Very mild suprapubictenderness to palpation. Extremity: moves all extremities, no restrictions of movements, no calf tenderness, no edema Neuro: AOx3, CN II-VII intact. Moves all extremities in all planes of motion. Skin: dry, intact no rashes or lesions Discharge Plan Discharge Plan Patient Disposition: Home Activity: No Activity Restriction Diet: Diabetic Prescriptions: New phenazopyridine 100 mg Tablet 200 mg PO TID PRN (Reason: Pain) Qty: 30 0RF cephalexin 500 mg capsule 500 mg PO BID 5 Days Qty: 10 0RF Continued carvedilol 12.5 mg tablet 12.5 mg PO BID Patient Comments: TAKE 1 TABLET BY MOUTH EVERY DAY duloxetine 60 mg capsule,delayed release(DR/EC) 60 mg PO DAILY Patient Comments: insulin detemir U-100 100 unit/mL (3 mL) insulin pen 22 units Sub-Q DAILY PRN (Reason: Hyperglycemia) Rx Instructions: Inject 22 unites under the skin once daily only if blood sugar is greater than 140 oxycodone 10 mg tablet 10 mg PO BID PRN (Reason: Pain) Patient Comments: TAKE 1 TABLET BY MOUTH 3 TIMES A DAY NEEDED albuterol sulfate 90 mcg/actuation Hfa Aerosol Inhaler 2 puff INHALATION Q6H PRN (Reason: Shortness Of Breath) omeprazole magnesium [Prilosec OTC] 20 mg Tablet,Delayed Release (Dr/Ec) 40 mg PO DAILY metformin 500 mg Tablet Extended Release 24 Hr 500 mg PO BID Ozempic 0.25 mg or 0.5 mg(2 mg/1.5 mL) Pen Injector 1 mg SUBCUT QWEEK vitamin [id number] acid 0.5-1 mg Tablet 1 tab PO DAILY lactulose 20 gram/30 mL Solution 20 g PO BID PRN (Reason: Constipation) Qty: 600 0RF acyclovir 400 mg Tablet 400 mg PO BID 90 Days Qty: 180 3RF potassium chloride 10 mEq Capsule, Extended Release 10 meq PO DAILY Qty: 30 6RF loratadine [Claritin] 10 mg Tablet 10 mg PO DAILY azithromycin [Zithromax Z-Emiliano] 250 mg Tablet 0 mg PO .COMPLEX Qty: 6 0RF Rx Instructions: For 250 mg dose pack: take 500 mg today (day 1), then 250 mg for 4 days (days2-5) cyanocobalamin (vitamin B-12) 1,000 mcg tablet, sublingual 1,000 mcg sublingual DAILY Patient Comments: DISSOLVE 1 TABLET UNDER THE TONGUE ONCE A DAY dexamethasone 4 mg tablet 20 mg PO DIRECTED PRN (Reason: Systemic Signs And Symptoms) Rx Instructions: take 5 tablest by mouth at once when directed related to chemotherapy schedule fluticasone propionate 50 mcg/actuation [place],Suspension 1 spray INTRANASAL DAILY PRN (Reason: Allergy Symptoms) Rx Instructions: administer into each nostril lisinopril 5 mg tablet 5 mg PO DAILY Patient Comments: TAKE 1 TABLET BY MOUTH EVERY DAY FOR 90 DAYS insulin aspart U-100 [Novolog FlexPen U-100 Insulin] 100 unit/mL (3 mL) Insulin Pen 25 unit SUBCUT DAILY PRN (Reason: Hyperglycemia) Rx Instructions: INJECT 25 UNITS UNDER THE SKIN ON CHEMO DAYS AFTER CHEMO ondansetron 8 mg tablet,disintegrating 8 mg PO TID PRN (Reason: Nausea) atorvastatin 80 mg tablet 80 mg PO DAILY Patient Comments: TAKE 1 TABLET BY MOUTH EVERY DAY FOR 90 DAYS Follow Up: Yinka Lopez MD [Primary Care Provider] - 02/03/23 11:20 am (Post hospital follow up appointment. Please call and reschedule if needed. This appointment is scheduled with his Nurse Practitioner.) Fabiola Marinelli MD [Active Staff] - 02/04/23 11:45 am Documented By: Vicente Linton DO 01/29/23 181 Signed By: <Electronically signed by Vicente Linton DO> 01/29/23 1822 [facility] Work Phone: Evaluation + Plan note Future Appointments Appointment Date:06/30/2025 03:00:00 PM Scheduled Provider: Location:[facility] Appointment Type:Urology CALL PAT FT Appointment Date:07/04/2025 01:45:00 PM Scheduled Provider: Location:[facility] Appointment Type:Urology FT [facility] evaluation note* Diagnosis Onset Date Resolution Status Acute right hip pain acuteHematuriaacuteAcute thoracic back painchronicCancer-related painchronic Degenerative cervical spinal stenosischronicDiabetes mellituschronicEncounter for antineoplastic immunotherapychronicFibromyalgiachronicHistory of 2018 novel coronavirus disease (COVID-19)chronicIron deficiencychronic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)chronicMultiple myelomachronic Neutropenia, unspecifiedchronicObesitychronicSmoldering multiple myeloma (SMM) chronic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chronic [facility] Work Phone: Evaluation note* Diagnosis Onset Date Resolution Status Acute right hip pain acuteHematuriaacuteAcute thoracic back painchronicCancer-related painchronic Degenerative cervical spinal stenosischronicDiabetes mellituschronicEncounter for antineoplastic immunotherapychronicEncounter for chemotherapy management chronicFibromyalgiachronicHistory of 2018 novel coronavirus disease (COVID-19) chronicIron deficiencychronic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)chronicMultiple myelomachronicNeutropenia, unspecifiedchronic ObesitychronicSmoldering multiple myeloma (SMM)chronic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chronic [facility] Work Phone: Evaluation note* Diagnosis Obesity, Class III, BMI >= 40- Primary Morbid obesity Multiple myeloma, remission status unspecified (HCC) Mild dilation of ascending aorta (HCC) Thoracic aortic ectasia [facility] Diagnosis Onset Date Resolution Status Acute right hip pain acuteChemotherapy-induced neutropeniaacuteHematuriaacuteAcute thoracic back pain chronicCancer-related painchronicDegenerative cervical spinal stenosischronic Diabetes mellituschronicEncounter for antineoplastic immunotherapychronic Encounter for chemotherapy managementchronicFibromyalgiachronicHistory of 2019 novel coronavirus disease (COVID-19)chronicIron deficiencychronic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)chronicMultiple myelomachronic Neutropenia, unspecifiedchronicObesitychronicSmoldering multiple myeloma (SMM) chronic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chronPrem[facility] Work Phone: Evaluation note* Diagnosis Onset Date Resolution Status Acute right hip pain acuteFrontal sinusitisacuteHematuriaacuteAcute thoracic back painchronicCancer- related painchronicChemotherapy-induced neutropeniachronicDegenerative cervical spinal stenosischronicDiabetes mellituschronicEncounter for antineoplastic immunotherapychronicEncounter for chemotherapy managementchronicFibromyalgia chronicHistory of 2019 novel coronavirus disease (COVID-19)chronicIron deficiencychronic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)chronicMultiple myelomachronicNeutropenia, unspecifiedchronic ObesitychronicSmoldering multiple myeloma (SMM)chronic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chronic [facility] Work Phone: Evaluation note* Diagnosis Onset Date Resolution Status Acute right hip pain acuteHematuriaacuteAcute thoracic back painchronicCancer-related painchronic Chemotherapy-induced neutropeniachronicDegenerative cervical spinal stenosis chronicDiabetes mellituschronicEncounter for antineoplastic immunotherapychronic Encounter for chemotherapy managementchronicFibromyalgiachronicFrontal sinusitis chronicHistory of 2019 novel coronavirus disease (COVID-19)chronicIron deficiencychronic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)chronicMultiple myelomachronicNeutropenia, unspecifiedchronic ObesitychronicSmoldering multiple myeloma (SMM)chronic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chronic [facility] Work Phone: Evaluation note* Diagnosis Onset Date Resolution Status Acute right hip pain acuteHematuriaacuteAcute thoracic back painchronicCancer-related painchronic Chemotherapy-induced neutropeniachronicDegenerative cervical spinal stenosis chronicDiabetes mellituschronicEncounter for antineoplastic immunotherapychronic Encounter for chemotherapy managementchronicFibromyalgiachronicFrontal sinusitis chronicHistory of 2018 novel coronavirus disease (COVID-19)chronicIron deficiencychronic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)chronicMultiple myelomachronicNeutropenia, unspecifiedchronic ObesitychronicSmoldering multiple myeloma (SMM)chronic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chronicHematuriaacuteImmunosuppressionacutePancytopeniaacuteUTI (urinary tract infection)acuteDiabetes mellituschronicFibromyalgiachronic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)chronicMultiple myelomachronic [facility] Work Phone: Evaluation note* Diagnosis Onset Date Resolution Status Acute right hip pain acuteHematuriaacuteAcute thoracic back painchronicCancer-related painchronic Chemotherapy-induced neutropeniachronicDegenerative cervical spinal stenosis chronicDiabetes mellituschronicEncounter for antineoplastic immunotherapychronic Encounter for chemotherapy managementchronicFibromyalgiachronicFrontal sinusitis chronicHistory of 2019 novel coronavirus disease (COVID-19)chronicIron deficiencychronic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)chronicMultiple myelomachronicNeutropenia, unspecifiedchronic ObesitychronicSmoldering multiple myeloma (SMM)chronic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chronicHematuriaacuteHypogammaglobulinemiaacuteImmunosuppression acutePancytopeniaacuteUTI (urinary tract infection)acuteDiabetes mellituschronic Fibromyalgiachronic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)chronicMultiple myelomachronic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chronic [facility] Work Phone: Evaluation note* Diagnosis Onset Date Resolution Status Hematuria acuteHypogammaglobulinemiaacuteImmunosuppressionacutePancytopeniaacuteUTI (urinary tract infection)acuteDiabetes mellituschronicFibromyalgiachronic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)chronicMultiple myelomachronic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chronicAcute right hip pain acuteHematuriaacuteAcute thoracic back painchronicCancer-related painchronic Chemotherapy-induced neutropeniachronicDegenerative cervical spinal stenosis chronicDiabetes mellituschronicEncounter for antineoplastic immunotherapychronic Encounter for chemotherapy managementchronicFibromyalgiachronicHistory of 2018 novel coronavirus disease (COVID-19)chronicIron deficiencychronic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)chronicMultiple myelomachronic Neutropenia, unspecifiedchronicObesitychronicSmoldering multiple myeloma (SMM) chronic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chronicFrontal sinusitisresolved [facility] Work Phone: Evaluation note* Diagnosis Onset Date Resolution Status Hematuria acuteHypogammaglobulinemiaacuteImmunosuppressionacutePancytopeniaacuteUTI (urinary tract infection)acuteDiabetes mellituschronicFibromyalgiachronic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)chronicMultiple myelomachronic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chronicMultiple myeloma chronicAcute right hip painacuteHematuriaacuteAcute thoracic back painchronic Cancer-related painchronicChemotherapy-induced neutropeniachronicDegenerative cervical spinal stenosischronicDiabetes mellituschronicEncounter for antineoplastic immunotherapychronicEncounter for chemotherapy managementchronic FibromyalgiachronicHistory of 2018 novel coronavirus disease (COVID-19)chronic Iron deficiencychronic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)chronicMultiple myelomachronicNeutropenia, unspecifiedchronic ObesitychronicSmoldering multiple myeloma (SMM)chronic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chronicFrontal sinusitisMet[facility] Work [facility]: Evaluation note* Diagnosis Onset Date Resolution Status Acute right hip pain acuteBone marrow hypocellularityacuteHematuriaacuteAcute thoracic back pain chronicCancer-related painchronicChemotherapy-induced neutropeniachronic Degenerative cervical spinal stenosischronicDiabetes mellituschronicEncounter for antineoplastic immunotherapychronicEncounter for chemotherapy management chronicEncounter for coordination of complex carechronicFibromyalgiachronic History of 2019 novel coronavirus disease (COVID-19)chronicIron deficiency chronic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)chronic Multiple myelomachronicNeutropenia, unspecifiedchronicObesitychronicSmoldering multiple myeloma (SMM)chronic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chronicFrontal sinusitisMet[facility] Work Phone: Evaluation note* Diagnosis Onset Date Resolution Status Acute right hip pain acuteHematuriaacuteAcute thoracic back painchronicBone marrow hypocellularity chronicCancer-related painchronicChemotherapy-induced neutropeniachronic Degenerative cervical spinal stenosischronicDiabetes mellituschronicEncounter for antineoplastic immunotherapychronicEncounter for chemotherapy management chronicEncounter for coordination of complex carechronicFibromyalgiachronic History of 2019 novel coronavirus disease (COVID-19)chronicIron deficiency chronic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)chronic Multiple myelomachronicNeutropenia, unspecifiedchronicObesitychronicSmoldering multiple myeloma (SMM)chronic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chronicFrontal sinusitisMet[facility]Health [facility] Work Phone: Evaluation note* Diagnosis Onset Date Resolution Status Acute right hip pain acuteHematuriaacuteAcute thoracic back painchronicBone marrow hypocellularity chronicCancer-related painchronicChemotherapy-induced neutropeniachronicChronic copper deficiencychronicDegenerative cervical spinal stenosischronicDiabetes mellituschronicEncounter for antineoplastic immunotherapychronicEncounter for chemotherapy managementchronicEncounter for coordination of complex carechronic FibromyalgiachronicHistory of 2019 novel coronavirus disease (COVID-19)chronic Iron deficiencychronic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)chronicMultiple myelomachronicNeutropenia, unspecifiedchronic ObesitychronicSmoldering multiple myeloma (SMM)chronic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chronicFrontal sinusitisresolved [facility] Work Phone: Evaluation note* Diagnosis Multiple myeloma, remission status unspecified (CMS/HCC)- Primary Multiple myeloma, remission status unspecified (CMS/HCC) 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 Type 2 diabetes mellitus without complication, without long-term current use of insulin (CMS/HCC) Hyperlipidemia, unspecified hyperlipidemia type Secondary hypertension Other secondary hypertension, unspecified Multiple myeloma (CMS/HCC) Multiple myeloma, without mention of having achieved remission Type 2 diabetes mellitus (CMS/HCC) Peripheral neuropathy Unspecified hereditary and idiopathic peripheral neuropathy documented in this encounter [facility] Work Phone: Evaluation note* Diagnosis 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)- Primary Multiple myeloma, in relapse Immunosuppressed status (CMS/HCC) Pancytopenia (CMS/HCC) documented in this encounter [facility] Work Phone: Evaluation note* Diagnosis Multiple myeloma not having achieved remission (CMS/HCC)- Primary Pancytopenia (CMS/HCC) Immunosuppressed status (CMS/HCC) Multiple myeloma, remission status unspecified (CMS/HCC) documented in this encounter [facility] Work Phone: Evaluation note* Diagnosis Multiple myeloma, remission status unspecified (CMS/HCC) documented in this encounter [facility] Work Phone: Evaluation noteNo [facility] Other Evaluation note* Diagnosis Multiple myeloma not having achieved remission (CMS/HCC) documented in this encounter [facility] Work Phone: Evaluation note* Diagnosis Onset Date Resolution Status Acute right hip pain acuteHematuriaacuteAcute thoracic back painchronicBone marrow hypocellularity chronicCancer-related painchronicChemotherapy-induced neutropeniachronicChronic copper deficiencychronicDegenerative cervical spinal stenosischronicDiabetes mellituschronicEncounter for antineoplastic immunotherapychronicEncounter for chemotherapy managementchronicEncounter for coordination of complex carechronic FibromyalgiachronicHistory of 2019 novel coronavirus disease (COVID-19)chronic 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chronicIron deficiencychronic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)chronicMultiple myelomachronicNeutropenia, unspecifiedchronicObesitychronicSmoldering multiple myeloma (SMM)chronic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chronicFrontal sinusitisresolved [facility] Work Phone: Evaluation note* Diagnosis Multiple myeloma not having achieved remission (CMS/HCC)- Primary Immunosuppressed status (CMS/HCC) documented in this encounter [facility] Work Phone: Evaluation note* Diagnosis Multiple myeloma not having achieved remission (CMS/HCC)- Primary Multiple myeloma, remission status unspecified (CMS/HCC) Depression, unspecified depression type documented in this encounter [facility] Work Phone: Evaluation note* Diagnosis Immunodeficiency disorder (CMS/HCC)- Primary Unspecified immunity deficiency Multiple myeloma not having achieved remission (CMS/HCC) 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) (CMS/HCC) Thrombocytopenia (CMS/HCC) Unspecified thrombocytopenia documented in this encounter [facility] Work Phone: Evaluation note* Diagnosis 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) (CMS/HCC)- Primary Multiple myeloma not having achieved remission (CMS/HCC) Immunodeficiency disorder (CMS/HCC) Unspecified immunity deficiency documented in this encounter [facility] Work Phone: Evaluation note* Diagnosis 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) (CMS/HCC)- Primary Immunodeficiency disorder (CMS/HCC) Unspecified immunity deficiency 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 Depression, unspecified depression type documented in this encounter [facility] Work Phone: Evaluation note* Diagnosis Multiple myeloma not having achieved remission (CMS/HCC) documented in this encounter [facility] Work Phone: Evaluation note* Diagnosis Multiple myeloma not having achieved remission (Multi)- Primary 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) (Multi) Secondary hypertension Other secondary hypertension, unspecified Hyperlipidemia, unspecified hyperlipidemia type Type 2 diabetes mellitus without complication, without long-term current use of insulin (Multi) Immunodeficiency disorder (Multi) Unspecified immunity deficiency Fibromyalgia Unspecified myalgia and myositis 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 documented in this encounter [facility] Work Phone: Evaluation note* Diagnosis Multiple myeloma not having achieved remission (Multi) documented in this encounter [facility] Work Phone: Evaluation note* Diagnosis Multiple myeloma not having achieved remission (Multi) documented in this encounter [facility] Work Phone: Evaluation note* Diagnosis Onset Date Resolution Status BMI 30.0-30.9,adult acuteCOPD (chronic obstructive pulmonary disease)acuteDM2 (diabetes mellitus, type 2)acuteHistory of COVID-19acuteHistory of tobacco abuseacuteMaxillary sinusitis, chronicacuteObesitychronicNauseaacuteRefractory chronic coughacute Cancer-related painchronicMultiple myelomachronicAcute metabolic encephalopathy acuteBacteremiaacuteCOPD (chronic obstructive pulmonary disease)acuteDM2 (diabetes mellitus, type 2)acuteGERD (gastroesophageal reflux disease)acute ImmunosuppressionacuteParoxysmal atrial fibrillationacuteRhinovirus infection acuteSeptic shockacuteSpontaneous bacterial peritonitisacuteChemotherapy-induced neutropeniachronic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)chronicHemorrhoidsacute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)[facility] Work Phone: Evaluation note* Diagnosis Onset Date Resolution Status Acute metabolic encephalopathy acuteBacteremiaacuteCOPD (chronic obstructive pulmonary disease)acuteDM2 (diabetes mellitus, type 2)acuteGERD (gastroesophageal reflux disease)acute ImmunosuppressionacuteParoxysmal atrial fibrillationacuteRhinovirus infection acuteSeptic shockacuteSpontaneous bacterial peritonitisacuteChemotherapy-induced neutropeniachronic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)chronicHemorrhoidsacute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)chronicAbnormal CXR (chest x-ray)acuteCOPD (chronic obstructive pulmonary disease)acuteDM2 (diabetes mellitus, type 2)acute History of COVID-19acuteHistory of tobacco abuseacuteMaxillary sinusitis, chronicacute [facility] Work Phone: Evaluation note* Diagnosis Onset Date Resolution Status Acute metabolic encephalopathy acuteBacteremiaacuteCOPD (chronic obstructive pulmonary disease)acuteDM2 (diabetes mellitus, type 2)acuteGERD (gastroesophageal reflux disease)acute ImmunosuppressionacuteParoxysmal atrial fibrillationacuteRhinovirus infection acuteSeptic shockacuteSpontaneous bacterial peritonitisacuteChemotherapy-induced neutropeniachronic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)chronicHemorrhoidsacute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)chronicAbnormal CXR (chest x-ray)acuteCOPD (chronic obstructive pulmonary disease)acuteDM2 (diabetes mellitus, type 2)acute History of COVID-19acuteHistory of tobacco abuseacuteMaxillary sinusitis, chronicacuteMultiple myelomaacuteCancer-related painchronic [facility] Work Phone: Evaluation note* Diagnosis Onset Date Resolution Status Acute metabolic encephalopathy acuteBacteremiaacuteCOPD (chronic obstructive pulmonary disease)acuteDM2 (diabetes mellitus, type 2)acuteGERD (gastroesophageal reflux disease)acute ImmunosuppressionacuteParoxysmal atrial fibrillationacuteRhinovirus infection acuteSeptic shockacuteSpontaneous bacterial peritonitisacuteChemotherapy-induced neutropeniachronic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)chronicHemorrhoidsacute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)chronicAbnormal CXR (chest x-ray)acuteCOPD (chronic obstructive pulmonary disease)acuteDM2 (diabetes mellitus, type 2)acute History of COVID-19acuteHistory of tobacco abuseacuteMaxillary sinusitis, chronicacuteMultiple myelomaacuteCancer-related painchronicAcute right hip pain acuteHematuriaacuteAcute thoracic back painchronicBone marrow hypocellularity chronicCancer-related painchronicChemotherapy-induced neutropeniachronicChronic copper deficiencychronicDegenerative cervical spinal stenosischronicEncounter for antineoplastic immunotherapychronicEncounter for chemotherapy management chronicEncounter for coordination of complex carechronicHistory of 2019 novel coronavirus disease (COVID-19)chronicIron deficiencychronic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)chronicMultiple myelomachronic Neutropenia, unspecifiedchronicObesitychronic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chronicFrontal sinusitisresolvedRefractory chronic coughacuteBone marrow hypocellularitychronicCancer-related painchronicChronic copper deficiency chronicEncounter for coordination of complex carechronic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)chronicMultiple myelomachronic Thrombocytopenia due to [facility] Work Phone: Evaluation note* Diagnosis Nonrheumatic aortic valve stenosis- Primary Aortic valve disorders Aneurysm of ascending aorta without rupture (HCC) [facility] Diagnosis Onset Date Resolution Status Hemorrhoids acute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)chronic Abnormal CXR (chest x-ray)acuteCOPD (chronic obstructive pulmonary disease)acute DM2 (diabetes mellitus, type 2)acuteHistory of COVID-19acuteHistory of tobacco abuseacuteMaxillary sinusitis, chronicacuteMultiple myelomaacuteCancer-related painchronicAcute right hip painacuteHematuriaacuteAcute thoracic back pain chronicBone marrow hypocellularitychronicCancer-related painchronicChemotherapy- induced neutropeniachronicChronic copper deficiencychronicDegenerative cervical spinal stenosischronicEncounter for antineoplastic immunotherapychronicEncounter for chemotherapy managementchronicEncounter for coordination of complex care chronicHistory of 2019 novel coronavirus disease (COVID-19)chronicIron deficiencychronic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)chronicMultiple myelomachronicNeutropenia, unspecifiedchronic Obesitychronic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chronicFrontal sinusitis resolvedRefractory chronic coughacuteBone marrow hypocellularitychronicCancer- related painchronicChronic copper deficiencychronicEncounter for coordination of complex carechronic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)chronicMultiple myelomachronic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chronic [facility] Work Phone: Evaluation note* Diagnosis Multiple myeloma in relapse (Multi)- Primary Multiple myeloma, in relapse Immunosuppressed status Pancytopenia Multiple myeloma not having achieved remission (Multi)- Primary Pancytopenia Immunosuppressed status Multiple myeloma, remission status unspecified (Multi) Multiple myeloma not having achieved remission (Multi)- Primary Immunodeficiency disorder (Multi)- Primary Unspecified immunity deficiency Multiple myeloma not having achieved remission (Multi) 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) (Multi) Thrombocytopenia (CMS-HCC) Unspecified thrombocytopenia 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) (Multi)- Primary Multiple myeloma not having achieved remission (Multi) Immunodeficiency disorder (Multi) Unspecified immunity deficiency 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) (Multi)- Primary Immunodeficiency disorder (Multi) Unspecified immunity deficiency 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 Depression, unspecified depression type Immunodeficiency disorder (Multi)- Primary Unspecified immunity deficiency Chronic bronchitis, unspecified chronic bronchitis type (Multi) 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 Depression, unspecified depression type Multiple myeloma not having achieved remission (Multi) Multiple myeloma not having achieved remission (Multi)- Primary 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) (Multi) Secondary hypertension Other secondary hypertension, unspecified Hyperlipidemia, unspecified hyperlipidemia type Type 2 diabetes mellitus without complication, without long-term current use of insulin (Multi) Immunodeficiency disorder (Multi) Unspecified immunity deficiency Fibromyalgia Unspecified myalgia and myositis 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 Multiple myeloma not having achieved remission (Multi) documented in this encounter [facility] Work Phone: Evaluation note* Diagnosis Type 2 diabetes mellitus with other specified complication, without long-term current use of insulin (CMS/HCC)- Primary Gastroesophageal reflux disease without esophagitis Esophageal reflux History of exposure to tuberculosis Chronic cough Cough Class 1 obesity due to excess calories with serious comorbidity and body mass index (BMI) of 33.0 to 33.9 in adult documented in this encounter [facility] HealthcareEvaluation [facility]* Diagnosis Adult general medical examination- Primary Unspecified general medical examination Essential hypertension (CMS/HCC) Unspecified essential hypertension Type 2 diabetes mellitus with other specified complication, unspecified whether termite treater helper insulin use (CMS/HCC) Hyperlipidemia, group D (CMS/HCC) Hyperchylomicronemia Vitamin D deficiency Normocytic anemia Unspecified anemia documented in this encounter [facility] HealthcareEvaluation note* Diagnosis Chronic obstructive pulmonary disease, unspecified COPD type (CMS/HCC)- Primary Bleeding hemorrhoids Unspecified hemorrhoids with other complication Multiple myeloma not having achieved remission (CMS/HCC) 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) (CMS/HCC) Lymphopenia Lymphocytopenia Thrombocytopenia (CMS/HCC) Unspecified thrombocytopenia documented in this encounter [facility] HealthcareEvaluation note* Diagnosis Onset Date Resolution Status Hemorrhoids acute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)chronic Abnormal CXR (chest x-ray)acuteCOPD (chronic obstructive pulmonary disease)acute DM2 (diabetes mellitus, type 2)acuteHistory of COVID-19acuteHistory of tobacco abuseacuteMaxillary sinusitis, chronicacuteMultiple myelomaacuteCancer-related painchronicAcute right hip painacuteHematuriaacuteAcute thoracic back pain chronicBone marrow hypocellularitychronicCancer-related painchronicChemotherapy- induced neutropeniachronicChronic copper deficiencychronicDegenerative cervical spinal stenosischronicEncounter for antineoplastic immunotherapychronicEncounter for chemotherapy managementchronicEncounter for coordination of complex care chronicHistory of 2019 novel coronavirus disease (COVID-19)chronicIron deficiencychronic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)chronicMultiple myelomachronicNeutropenia, unspecifiedchronic Obesitychronic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chronicFrontal sinusitis resolvedRefractory chronic coughacuteBone marrow hypocellularitychronicCancer- related painchronicChronic copper deficiencychronicEncounter for coordination of complex carechronic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)chronicMultiple myelomachronic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chronicCancer-related painchronicMultiple myelomachronic [facility] Work Phone: Evaluation note* Diagnosis Multiple myeloma in relapse (Multi)- Primary Multiple myeloma, in relapse Immunosuppressed status Pancytopenia Multiple myeloma not having achieved remission (Multi)- Primary Pancytopenia Immunosuppressed status Multiple myeloma, remission status unspecified (Multi) Multiple myeloma not having achieved remission (Multi)- Primary Immunodeficiency disorder (Multi)- Primary Unspecified immunity deficiency Multiple myeloma not having achieved remission (Multi) 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) (Multi) Thrombocytopenia (CMS-HCC) Unspecified thrombocytopenia 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) (Multi)- Primary Multiple myeloma not having achieved remission (Multi) Immunodeficiency disorder (Multi) Unspecified immunity deficiency 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) (Multi)- Primary Immunodeficiency disorder (Multi) Unspecified immunity deficiency 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 Depression, unspecified depression type Immunodeficiency disorder (Multi)- Primary Unspecified immunity deficiency Chronic bronchitis, unspecified chronic bronchitis type (Multi) 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 Depression, unspecified depression type Multiple myeloma not having achieved remission (Multi) Multiple myeloma not having achieved remission (Multi)- Primary 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) (Multi) Secondary hypertension Other secondary hypertension, unspecified Hyperlipidemia, unspecified hyperlipidemia type Type 2 diabetes mellitus without complication, without long-term current use of insulin (Multi) Immunodeficiency disorder (Multi) Unspecified immunity deficiency Fibromyalgia Unspecified myalgia and myositis 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 Multiple myeloma not having achieved remission (Multi)- Primary documented in this encounter [facility] Work Phone: Evaluation note* Diagnosis Upper respiratory tract infection, unspecified type- Primary documented in this encounter [facility]Evaluation note* Diagnosis Bleeding hemorrhoids- Primary Unspecified hemorrhoids with other complication Cough in adult Chronic cough Cough Chronic obstructive pulmonary disease, unspecified COPD type (CMS/HCC) Essential hypertension (CMS/HCC) Unspecified essential hypertension Paroxysmal atrial fibrillation (CMS/HCC) Atrial fibrillation Hypersomnolence Hypersomnia, unspecified documented in this encounter [facility]* Diagnosis Multiple myeloma in relapse (Multi)- Primary Multiple myeloma, in relapse Immunosuppressed status (Multi) Pancytopenia (Multi) Multiple myeloma not having achieved remission (Multi)- Primary Pancytopenia (Multi) Immunosuppressed status (Multi) Multiple myeloma, remission status unspecified (Multi) Multiple myeloma not having achieved remission (Multi)- Primary Immunodeficiency disorder (Multi)- Primary Unspecified immunity deficiency Multiple myeloma not having achieved remission (Multi) Liver cirrhosis secondary to KAPADIA (nonalcoholic steatohepatitis) (Multi) Thrombocytopenia (CMS-HCC) Unspecified thrombocytopenia Liver cirrhosis secondary to [place]AD[place] (nonalcoholic steatohepatitis) (Multi)- Primary Multiple myeloma not having achieved remission (Multi) Immunodeficiency disorder (Multi) Unspecified immunity deficiency Liver cirrhosis secondary to [place]AD[place] (nonalcoholic steatohepatitis) (Multi)- Primary Immunodeficiency disorder (Multi) Unspecified immunity deficiency 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 Depression, unspecified depression type Immunodeficiency disorder (Multi)- Primary Unspecified immunity deficiency Chronic bronchitis, unspecified chronic bronchitis type (Multi) 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 Depression, unspecified depression type Multiple myeloma not having achieved remission (Multi) Multiple myeloma not having achieved remission (Multi)- Primary Liver cirrhosis secondary to [place] (nonalcoholic steatohepatitis) (Multi) Secondary hypertension Other secondary hypertension, unspecified Hyperlipidemia, unspecified hyperlipidemia type Type 2 diabetes mellitus without complication, without long-term current use of insulin (Multi) Immunodeficiency disorder (Multi) Unspecified immunity deficiency Fibromyalgia Unspecified myalgia and myositis 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 Multiple myeloma, remission status unspecified (Multi) documented in this encounter [facility] Work Phone: Evaluation note* Diagnosis Multiple myeloma in relapse (Multi)- Primary Multiple myeloma, in relapse Immunosuppressed status (Multi) Pancytopenia (Multi) Multiple myeloma not having achieved remission (Multi)- Primary Pancytopenia (Multi) Immunosuppressed status (Multi) Multiple myeloma, remission status unspecified (Multi) Multiple myeloma not having achieved remission (Multi)- Primary Immunodeficiency disorder (Multi)- Primary Unspecified immunity deficiency Multiple myeloma not having achieved remission (Multi) Liver cirrhosis secondary to [place] (nonalcoholic steatohepatitis) (Multi) Thrombocytopenia (CMS-HCC) Unspecified thrombocytopenia Liver cirrhosis secondary to [place] (nonalcoholic steatohepatitis) (Multi)- Primary Multiple myeloma not having achieved remission (Multi) Immunodeficiency disorder (Multi) Unspecified immunity deficiency Liver cirrhosis secondary to [place] (nonalcoholic steatohepatitis) (Multi)- Primary Immunodeficiency disorder (Multi) Unspecified immunity deficiency 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 Depression, unspecified depression type Immunodeficiency disorder (Multi)- Primary Unspecified immunity deficiency Chronic bronchitis, unspecified chronic bronchitis type (Multi) 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 Depression, unspecified depression type Multiple myeloma not having achieved remission (Multi) Multiple myeloma not having achieved remission (Multi)- Primary Liver cirrhosis secondary to [place] (nonalcoholic steatohepatitis) (Multi) Secondary hypertension Other secondary hypertension, unspecified Hyperlipidemia, unspecified hyperlipidemia type Type 2 diabetes mellitus without complication, without long-term current use of insulin (Multi) Immunodeficiency disorder (Multi) Unspecified immunity deficiency Fibromyalgia Unspecified myalgia and myositis 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 Multiple myeloma not having achieved remission (Multi) documented in this encounter [facility] Work Phone: Evaluation note* Diagnosis Multiple myeloma in relapse (Multi)- Primary Multiple myeloma, in relapse Immunosuppressed status Pancytopenia Multiple myeloma not having achieved remission (Multi)- Primary Pancytopenia Immunosuppressed status Multiple myeloma, remission status unspecified (Multi) Multiple myeloma not having achieved remission (Multi)- Primary Immunodeficiency disorder (Multi)- Primary Unspecified immunity deficiency Multiple myeloma not having achieved remission (Multi) Liver cirrhosis secondary to [place] (nonalcoholic steatohepatitis) (Multi) Thrombocytopenia (CMS-HCC) Unspecified thrombocytopenia Liver cirrhosis secondary to [place] (nonalcoholic steatohepatitis) (Multi)- Primary Multiple myeloma not having achieved remission (Multi) Immunodeficiency disorder (Multi) Unspecified immunity deficiency Liver cirrhosis secondary to [place] (nonalcoholic steatohepatitis) (Multi)- Primary Immunodeficiency disorder (Multi) Unspecified immunity deficiency 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 Depression, unspecified depression type Immunodeficiency disorder (Multi)- Primary Unspecified immunity deficiency Chronic bronchitis, unspecified chronic bronchitis type (Multi) 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 Depression, unspecified depression type Multiple myeloma not having achieved remission (Multi) Multiple myeloma not having achieved remission (Multi)- Primary Liver cirrhosis secondary to [place] (nonalcoholic steatohepatitis) (Multi) Secondary hypertension Other secondary hypertension, unspecified Hyperlipidemia, unspecified hyperlipidemia type Type 2 diabetes mellitus without complication, without long-term current use of insulin (Multi) Immunodeficiency disorder (Multi) Unspecified immunity deficiency Fibromyalgia Unspecified myalgia and myositis 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 Multiple myeloma, remission status unspecified (Multi)- Primary documented in this encounter [facility] Work Phone: Evaluation note* Diagnosis Type 2 diabetes mellitus with other specified complication, unspecified whether termite treater helper insulin use ([facility]/HCC)- Primary BMI 28.0-28.9,adult Viral upper respiratory tract infection Acute upper respiratory infections of unspecified site Hypertension, unspecified type ([facility]) documented in this encounter [facility]Evaluation note* Diagnosis Herpesviral infection- Primary documented in this encounter [facility] note* Diagnosis Seasonal allergic rhinitis due to pollen documented in this encounter [facility]* Diagnosis Multiple myeloma in relapse (Multi)- Primary Multiple myeloma, in relapse Immunosuppressed status Pancytopenia Multiple myeloma not having achieved remission (Multi)- Primary Pancytopenia Immunosuppressed status Multiple myeloma, remission status unspecified (Multi) Multiple myeloma not having achieved remission (Multi)- Primary Immunodeficiency disorder (Multi)- Primary Unspecified immunity deficiency Multiple myeloma not having achieved remission (Multi) Liver cirrhosis secondary to [place] (nonalcoholic steatohepatitis) (Multi) Thrombocytopenia (CMS-HCC) Unspecified thrombocytopenia Liver cirrhosis secondary to [place] (nonalcoholic steatohepatitis) (Multi)- Primary Multiple myeloma not having achieved remission (Multi) Immunodeficiency disorder (Multi) Unspecified immunity deficiency Liver cirrhosis secondary to [place] (nonalcoholic steatohepatitis) (Multi)- Primary Immunodeficiency disorder (Multi) Unspecified immunity deficiency 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 Depression, unspecified depression type Immunodeficiency disorder (Multi)- Primary Unspecified immunity deficiency Chronic bronchitis, unspecified chronic bronchitis type (Multi) 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 Depression, unspecified depression type Multiple myeloma not having achieved remission (Multi) Multiple myeloma not having achieved remission (Multi)- Primary Liver cirrhosis secondary to [place] (nonalcoholic steatohepatitis) (Multi) Secondary hypertension Other secondary hypertension, unspecified Hyperlipidemia, unspecified hyperlipidemia type Type 2 diabetes mellitus without complication, without long-term current use of insulin (Multi) Immunodeficiency disorder (Multi) Unspecified immunity deficiency Fibromyalgia Unspecified myalgia and myositis 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 Bleeding internal hemorrhoids- Primary Internal hemorrhoids with other complication Anal pain Anal or rectal pain documented in this encounter [facility] Work Phone: Evaluation note* Diagnosis Multiple myeloma in relapse (Multi)- Primary Multiple myeloma, in relapse Immunosuppressed status Pancytopenia Multiple myeloma not having achieved remission (Multi)- Primary Pancytopenia Immunosuppressed status Multiple myeloma, remission status unspecified (Multi) Multiple myeloma not having achieved remission (Multi)- Primary Immunodeficiency disorder (Multi)- Primary Unspecified immunity deficiency Multiple myeloma not having achieved remission (Multi) Liver cirrhosis secondary to [place] (nonalcoholic steatohepatitis) (Multi) Thrombocytopenia (CMS-HCC) Unspecified thrombocytopenia Liver cirrhosis secondary to [place] (nonalcoholic steatohepatitis) (Multi)- Primary Multiple myeloma not having achieved remission (Multi) Immunodeficiency disorder (Multi) Unspecified immunity deficiency Liver cirrhosis secondary to [place] (nonalcoholic steatohepatitis) (Multi)- Primary Immunodeficiency disorder (Multi) Unspecified immunity deficiency 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 Depression, unspecified depression type Immunodeficiency disorder (Multi)- Primary Unspecified immunity deficiency Chronic bronchitis, unspecified chronic bronchitis type (Multi) 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 Depression, unspecified depression type Multiple myeloma not having achieved remission (Multi) Multiple myeloma not having achieved remission (Multi)- Primary 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) (Multi) Secondary hypertension Other secondary hypertension, unspecified Hyperlipidemia, unspecified hyperlipidemia type Type 2 diabetes mellitus without complication, without long-term current use of insulin (Multi) Immunodeficiency disorder (Multi) Unspecified immunity deficiency Fibromyalgia Unspecified myalgia and myositis 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 Monoclonal gammopathy Monoclonal paraproteinemia Liver cell carcinoma (Multi) Malignant neoplasm of liver, primary documented in this encounter [facility] Work Phone: Evaluation note* Diagnosis Upper respiratory tract infection, unspecified type- Primary Type 2 diabetes mellitus with diabetic chronic kidney disease (CMS/HCC) Chronic kidney disease, stage 3a (HCC) (CMS/HCC) Multiple myeloma not having achieved remission (CMS/HCC) Paroxysmal atrial fibrillation (CMS/HCC) Atrial fibrillation Unspecified cirrhosis of liver (CMS/HCC) Chronic obstructive pulmonary disease, unspecified COPD type (CMS/HCC) [J44.9] Gastroesophageal reflux disease without esophagitis Esophageal reflux documented in this encounter [facility]* Diagnosis Multiple myeloma in relapse (Multi)- Primary Multiple myeloma, in relapse Immunosuppressed status Pancytopenia Multiple myeloma not having achieved remission (Multi)- Primary Pancytopenia Immunosuppressed status Multiple myeloma, remission status unspecified (Multi) Multiple myeloma not having achieved remission (Multi)- Primary Immunodeficiency disorder (Multi)- Primary Unspecified immunity deficiency Multiple myeloma not having achieved remission (Multi) 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) (Multi) Thrombocytopenia (CMS-HCC) Unspecified thrombocytopenia Liver cirrhosis secondary to [place] (nonalcoholic steatohepatitis) (Multi)- Primary Multiple myeloma not having achieved remission (Multi) Immunodeficiency disorder (Multi) Unspecified immunity deficiency Liver cirrhosis secondary to [place] (nonalcoholic steatohepatitis) (Multi)- Primary Immunodeficiency disorder (Multi) Unspecified immunity deficiency 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 Depression, unspecified depression type Immunodeficiency disorder (Multi)- Primary Unspecified immunity deficiency Chronic bronchitis, unspecified chronic bronchitis type (Multi) 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 Depression, unspecified depression type Multiple myeloma not having achieved remission (Multi) Multiple myeloma not having achieved remission (Multi)- Primary 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) (Multi) Secondary hypertension Other secondary hypertension, unspecified Hyperlipidemia, unspecified hyperlipidemia type Type 2 diabetes mellitus without complication, without long-term current use of insulin (Multi) Immunodeficiency disorder (Multi) Unspecified immunity deficiency Fibromyalgia Unspecified myalgia and myositis 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 Monoclonal gammopathy Monoclonal paraproteinemia Liver cell carcinoma (Multi) Malignant neoplasm of liver, primary documented in this encounter [facility] Work Phone: Evaluation note* Diagnosis Type 2 diabetes mellitus with other specified complication, without long-term current use of insulin (CMS/HCC) Class 1 obesity due to excess calories with serious comorbidity and body mass index (BMI) of 33.0 to 33.9 in adult documented in this encounter [facility] HealthcareEvaluation note* Diagnosis Liver lesion- Primary Other specified disorders of liver Type 2 diabetes mellitus with other specified complication, without long-term current use of insulin (CMS/HCC) Class 1 obesity due to excess calories with serious comorbidity and body mass index (BMI) of 33.0 to 33.9 in adult Seasonal allergic rhinitis due to pollen Chronic obstructive pulmonary disease, unspecified COPD type (CMS/HCC) Other pancytopenia (CMS/HCC) Other pancytopenia Inhalant abuse, in remission (CMS/HCC) Other, mixed, or unspecified nondependent drug abuse, in remission Vitamin D deficiency 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) (CMS/HCC) Pre-op testing Unspecified pre-operative examination documented in this encounter [facility] HealthcareEvaluation note* Diagnosis Multiple myeloma in relapse (Multi)- Primary Multiple myeloma, in relapse Immunosuppressed status Pancytopenia Multiple myeloma not having achieved remission (Multi)- Primary Pancytopenia Immunosuppressed status Multiple myeloma, remission status unspecified (Multi) Multiple myeloma not having achieved remission (Multi)- Primary Immunodeficiency disorder (Multi)- Primary Unspecified immunity deficiency Multiple myeloma not having achieved remission (Multi) 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) (Multi) Thrombocytopenia (CMS-HCC) Unspecified thrombocytopenia 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 steatohepatitis) (Multi)- Primary Multiple myeloma not having achieved remission (Multi) Immunodeficiency disorder (Multi) Unspecified immunity deficiency 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 steatohepatitis) (Multi)- Primary Immunodeficiency disorder (Multi) Unspecified immunity deficiency 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 Depression, unspecified depression type Immunodeficiency disorder (Multi)- Primary Unspecified immunity deficiency Chronic bronchitis, unspecified chronic bronchitis type (Multi) 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 Depression, unspecified depression type Multiple myeloma not having achieved remission (Multi) Multiple myeloma not having achieved remission (Multi)- Primary 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) (Multi) Secondary hypertension Other secondary hypertension, unspecified Hyperlipidemia, unspecified hyperlipidemia type Type 2 diabetes mellitus without complication, without long-term current use of insulin (Multi) Immunodeficiency disorder (Multi) Unspecified immunity deficiency Fibromyalgia Unspecified myalgia and myositis 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 Liver cell carcinoma (Multi) Malignant neoplasm of liver, primary documented in this encounter [facility] Work Phone: Evaluation note* Diagnosis Multiple myeloma in relapse (Multi)- Primary Multiple myeloma, in relapse Immunosuppressed status Pancytopenia Multiple myeloma not having achieved remission (Multi)- Primary Pancytopenia Immunosuppressed status Multiple myeloma, remission status unspecified (Multi) Multiple myeloma not having achieved remission (Multi)- Primary Immunodeficiency disorder (Multi)- Primary Unspecified immunity deficiency Multiple myeloma not having achieved remission (Multi) 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) (Multi) Thrombocytopenia (CMS-HCC) Unspecified thrombocytopenia 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[place] (nonalcoholic steatohepatitis) (Multi)- Primary Multiple myeloma not having achieved remission (Multi) Immunodeficiency disorder (Multi) Unspecified immunity deficiency 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[place] (nonalcoholic steatohepatitis) (Multi)- Primary Immunodeficiency disorder (Multi) Unspecified immunity deficiency 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 Depression, unspecified depression type Immunodeficiency disorder (Multi)- Primary Unspecified immunity deficiency Chronic bronchitis, unspecified chronic bronchitis type (Multi) 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 Depression, unspecified depression type Multiple myeloma not having achieved remission (Multi) Multiple myeloma not having achieved remission (Multi)- Primary 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) (Multi) Secondary hypertension Other secondary hypertension, unspecified Hyperlipidemia, unspecified hyperlipidemia type Type 2 diabetes mellitus without complication, without long-term current use of insulin (Multi) Immunodeficiency disorder (Multi) Unspecified immunity deficiency Fibromyalgia Unspecified myalgia and myositis 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 Liver cell carcinoma (Multi) Malignant neoplasm of liver, primary documented in this encounter [facility] Work Phone: Evaluation note* Diagnosis Multiple myeloma in relapse (Multi)- Primary Multiple myeloma, in relapse Immunosuppressed status Pancytopenia Multiple myeloma not having achieved remission (Multi)- Primary Pancytopenia Immunosuppressed status Multiple myeloma, remission status unspecified (Multi) Multiple myeloma not having achieved remission (Multi)- Primary Immunodeficiency disorder (Multi)- Primary Unspecified immunity deficiency Multiple myeloma not having achieved remission (Multi) 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) (Multi) Thrombocytopenia (CMS-HCC) Unspecified thrombocytopenia 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) (Multi)- Primary Multiple myeloma not having achieved remission (Multi) Immunodeficiency disorder (Multi) Unspecified immunity deficiency 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) (Multi)- Primary Immunodeficiency disorder (Multi) Unspecified immunity deficiency 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 Depression, unspecified depression type Immunodeficiency disorder (Multi)- Primary Unspecified immunity deficiency Chronic bronchitis, unspecified chronic bronchitis type (Multi) 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 Depression, unspecified depression type Multiple myeloma not having achieved remission (Multi) Multiple myeloma not having achieved remission (Multi)- Primary 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) (Multi) Secondary hypertension Other secondary hypertension, unspecified Hyperlipidemia, unspecified hyperlipidemia type Type 2 diabetes mellitus without complication, without long-term current use of insulin (Multi) Immunodeficiency disorder (Multi) Unspecified immunity deficiency Fibromyalgia Unspecified myalgia and myositis 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 Liver cell carcinoma (Multi) Malignant neoplasm of liver, primary documented in this encounter [facility] Work Phone: Evaluation note* Diagnosis Seasonal allergic rhinitis due to pollen documented in this encounter [facility]* Diagnosis Bronchitis- Primary Bronchitis, not specified as acute or chronic documented in this encounter [facility]* Diagnosis Medicare annual wellness visit, subsequent- Primary Chronic obstructive pulmonary disease, unspecified COPD type (CMS/HCC) Seasonal allergic rhinitis due to pollen Acute recurrent maxillary sinusitis documented in this encounter [facility]* Diagnosis Medicare annual wellness visit, subsequent- Primary Chronic obstructive pulmonary disease, unspecified COPD type (CMS/HCC) Seasonal allergic rhinitis due to pollen Acute recurrent maxillary sinusitis Acute cystitis with hematuria- Primary Dysuria documented in this encounter [facility]* Diagnosis Medicare annual wellness visit, subsequent- Primary Chronic obstructive pulmonary disease, unspecified COPD type (CMS/HCC) Seasonal allergic rhinitis due to pollen Acute recurrent maxillary sinusitis Acute cystitis without hematuria- Primary Gastroesophageal reflux disease without esophagitis Esophageal reflux Recurrent candidiasis of vagina documented in this encounter [facility]* Diagnosis Medicare annual wellness visit, subsequent- Primary Chronic obstructive pulmonary disease, unspecified COPD type (CMS/HCC) Seasonal allergic rhinitis due to pollen Acute recurrent maxillary sinusitis Acute cystitis without hematuria- Primary Gastroesophageal reflux disease without esophagitis Esophageal reflux Recurrent candidiasis of vagina Contusion of rib on left side, subsequent encounter- Primary Cough, unspecified type COPD with acute exacerbation (CMS/HCC) documented in this encounter [facility]* Diagnosis Medicare annual wellness visit, subsequent- Primary Chronic obstructive pulmonary disease, unspecified COPD type (HCC) Seasonal allergic rhinitis due to pollen Acute recurrent maxillary sinusitis Acute cystitis without hematuria- Primary Gastroesophageal reflux disease without esophagitis Esophageal reflux Recurrent candidiasis of vagina Preoperative clearance- Primary Unspecified pre-operative examination Arm wound, left, initial encounter [facility] this [facility] Diagnosis Medicare annual wellness visit, subsequent- Primary Chronic obstructive pulmonary disease, unspecified COPD type (HCC) Seasonal allergic rhinitis due to pollen Acute recurrent maxillary sinusitis Acute cystitis without hematuria- Primary Gastroesophageal reflux disease without esophagitis Esophageal reflux Recurrent candidiasis of vagina Diabetes mellitus without complication (HCC) Type II or unspecified type diabetes mellitus without mention of complication, not stated as uncontrolled Hypertension, unspecified type documented [facility] Diagnosis Medicare annual wellness visit, subsequent- Primary Chronic obstructive pulmonary disease, unspecified COPD type (HCC) Seasonal allergic rhinitis due to pollen Acute recurrent maxillary sinusitis Acute cystitis without hematuria- Primary Gastroesophageal reflux disease without esophagitis Esophageal reflux Recurrent 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 documented in this encounter [facility]* Diagnosis Medicare annual wellness visit, subsequent- Primary Chronic obstructive pulmonary disease, unspecified COPD type (HCC) Seasonal allergic rhinitis due to pollen Acute recurrent maxillary sinusitis Acute cystitis without hematuria- Primary Gastroesophageal reflux disease without esophagitis Esophageal reflux Recurrent candidiasis of vagina Preoperative clearance Unspecified pre-operative examination documented in this encounter [facility]* Diagnosis Multiple myeloma in relapse (Multi)- Primary Multiple myeloma, in relapse Immunosuppressed status Pancytopenia Multiple myeloma not having achieved remission (Multi)- Primary Pancytopenia Immunosuppressed status Multiple myeloma, remission status unspecified (Multi) Multiple myeloma not having achieved remission (Multi)- Primary Immunodeficiency disorder (Multi)- Primary Unspecified immunity deficiency Multiple myeloma not having achieved remission (Multi) Liver cirrhosis secondary to KAPADIA (nonalcoholic steatohepatitis) (Multi) Thrombocytopenia Unspecified thrombocytopenia Liver cirrhosis secondary to KAPADIA (nonalcoholic steatohepatitis) (Multi)- Primary Multiple myeloma not having achieved remission (Multi) Immunodeficiency disorder (Multi) Unspecified immunity deficiency Liver cirrhosis secondary to KAPADIA (nonalcoholic steatohepatitis) (Multi)- Primary Immunodeficiency disorder (Multi) Unspecified immunity deficiency 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 Depression, unspecified depression type Immunodeficiency disorder (Multi)- Primary Unspecified immunity deficiency Chronic bronchitis, unspecified chronic bronchitis type (Multi) 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 Depression, unspecified depression type Multiple myeloma not having achieved remission (Multi) Multiple myeloma not having achieved remission (Multi)- Primary Liver cirrhosis secondary to KAPADIA (nonalcoholic steatohepatitis) (Multi) Secondary hypertension Other secondary hypertension, unspecified Hyperlipidemia, unspecified hyperlipidemia type Type 2 diabetes mellitus without complication, without long-term current use of insulin Immunodeficiency disorder (Multi) Unspecified immunity deficiency Fibromyalgia Unspecified myalgia and myositis 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 Liver cell carcinoma Malignant neoplasm of liver, primary documented in this encounter [facility] Work Phone: Evaluation note* Diagnosis Multiple myeloma in relapse (Multi)- Primary Multiple myeloma, in relapse Immunosuppressed status Pancytopenia Multiple myeloma not having achieved remission (Multi)- Primary Pancytopenia Immunosuppressed status Multiple myeloma, remission status unspecified (Multi) Multiple myeloma not having achieved remission (Multi)- Primary Immunodeficiency disorder (Multi)- Primary Unspecified immunity deficiency Multiple myeloma not having achieved remission (Multi) Liver cirrhosis secondary to KAPADIA (nonalcoholic steatohepatitis) (Multi) Thrombocytopenia Unspecified thrombocytopenia Liver cirrhosis secondary to KAPADIA (nonalcoholic steatohepatitis) (Multi)- Primary Multiple myeloma not having achieved remission (Multi) Immunodeficiency disorder (Multi) Unspecified immunity deficiency Liver cirrhosis secondary to KAPADIA (nonalcoholic steatohepatitis) (Multi)- Primary Immunodeficiency disorder (Multi) Unspecified immunity deficiency 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 Depression, unspecified depression type Immunodeficiency disorder (Multi)- Primary Unspecified immunity deficiency Chronic bronchitis, unspecified chronic bronchitis type (Multi) 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 Depression, unspecified depression type Multiple myeloma not having achieved remission (Multi) Multiple myeloma not having achieved remission (Multi)- Primary 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 (nonalcoholic steatohepatitis) (Multi) Secondary hypertension Other secondary hypertension, unspecified Hyperlipidemia, unspecified hyperlipidemia type Type 2 diabetes mellitus without complication, without long-term current use of insulin Immunodeficiency disorder (Multi) Unspecified immunity deficiency Fibromyalgia Unspecified myalgia and myositis 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 Liver cell carcinoma Malignant neoplasm of liver, primary documented in this encounter [facility] Work Phone: Evaluation note* Diagnosis Medicare annual wellness visit, subsequent- Primary Chronic obstructive pulmonary disease, unspecified COPD type (HCC) Seasonal allergic rhinitis due to pollen Acute recurrent maxillary sinusitis Acute cystitis without hematuria- Primary Gastroesophageal reflux disease without esophagitis Esophageal reflux Recurrent candidiasis of vagina COPD with acute exacerbation (HCC)- Primary Pharyngitis, unspecified etiology documented in this encounter [facility] Author Sherif Ravi [facility] January 28, 2023 5:51amNote Date/TimeMarch 2022 5:[place] [address] Hospitalist H&P Signed Patient: Mojgan Pérez MR#: [id number] : 1955 Acct:[id number] Age/Sex: 67 / F Adm Date: 3 Loc: Room: [address] [place] [address] Type: ADM INOo Attending Dr: Sherif Ravi DO Copies to: MD Sherif Amezquita, ~ HPI DATE OF EXAMINATION: 01/28/23 CHIEF COMPLAINT: pain and bleeding with urination. HISTORY OF PRESENT ILLNESS: This is a 67-year-old woman who present emergency room today with rather sudden onset of extremely painful urination accompanied with some hematuria. She describes seeing little streaks of blood on the toilet paper and tiny little blood clots. She only rarely gets urinary tract infections. With this current episode she noticed a significant amount of suprapubic pain. In the emergency room a urinary tract infection was diagnosed and she was placed on Rocephin. 2 days ago she got started on azithromycin 5-day treatment pack due to a sinus infection, which she describes coughing up greenish phlegm that is now turned yellow. She also says that for about 3 to 4 days she was having yellow-greenish diarrhea but that did seem to get better over the last day or 2. 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 Her white blood count has risen from its baseline of about 1.7 up to 3.0 today. Her hemoglobin remained stable. In the past it was 10.8 and today it is 11.1. Her platelets recently reached a peak of 68k but are much lower today at only 35,000. Oncology is using Kyprolis/Cytoxan but the patient reports that she hasbeen on a break from that for the last couple weeks it would be due to take her next dose on Thursday 2 days from now. She denies any sudden myalgias or arthralgias. She denies any sudden fevers or chills or shaking chills. She denies any rashes on her skin. In the emergency room they did give her Rocephin and then Pyridium. She notices that her urine is already turning orange. She has a past medical history of diabetes, tension, chronic struct of pulm disease, gastroesophageal reflux disease, fibromyalgia, chronic thrombocytopenia, chronic liver disease from KAPADIA, and has an ascending aortic aneurysm which is being monitored. Review of Systems Review of Systems Review of systems: 10 systems are reviewed and are negative except as mentioned elsewhere in the documentation. PMFSH Vaccinated for COVID-19?: Yes Medical History Aortic aneurysm COPD (chronic obstructive pulmonary disease) Diabetes Fibromyalgia GERD (gastroesophageal reflux disease) Hypertension Iron deficiency Multiple myeloma Neutropenia Smoldering multiple myeloma (SMM) Smoldering myeloma Temporary low platelet count Surgical History H/O: hysterectomy History of appendectomy History of cholecystectomy Family History (Updated 01/28/23 @ 05:43 by Sherif Ravi DO) Other COPD (chronic obstructive pulmonary disease) Social History Smoking Status: Former smoker Tobacco Type: cigarettes Substance Use Type: None Social History Comments: Lives with son a juli [facility] Medications and Allergies Allergies erythromycin base [From E-Mycin] Allergy (Verified 01/28/23 00:22) Hives latex Allergy (Verified 01/28/23 00:22) Unknown Reaction moxifloxacin [From Avelox] Allergy (Verified 01/28/23 00:22) Hives Quinolones Allergy (Verified 01/28/23 00:22) Unknown Reaction tetracycline Allergy (Verified 01/28/23 00:22) Unknown Reaction Home Medications carvedilol 12.5 mg tablet 12.5 mg PO BID 11/20/17 [History Confirmed 01/09/23] duloxetine 60 mg capsule,delayed release 60 mg PO DAILY 11/20/17 [History Confirmed 01/09/23] insulin detemir U-100 100 unit/mL (3 mL) subcutaneous pen 26 units subcut QHS 11/20/17 [History Confirmed 01/09/23] oxycodone 10 mg tablet 10 mg PO TID PRN Pain 11/20/17 [History Confirmed 01/09/23] albuterol sulfate 90 mcg/actuation aerosol inhaler 2 puff inhalation Q6H PRN Shortness Of Breath 11/24/17 [History Confirmed 01/09/23] fluticasone 250 mcg-salmeterol 50 mcg/dose blistr powdr for inhalation (Advair Diskus) 1 inh inhalation Q12H PRN Shortness Of Breath 11/24/17 [History Confirmed 01/09/23] omeprazole magnesium 20 mg tablet,delayed release (Prilosec OTC) 40 mg PO DAILY 11/24/17 [History Confirmed 01/09/23] cholecalciferol (vitamin D3) 25 mcg (1,000 unit) capsule (Vitamin D3) 1,000 unitPO DAILY 04/13/19 [History Confirmed 01/09/23] metformin 500 mg tablet,extended release 24 hr 500 mg PO BID 03/05/20 [History Confirmed 01/09/23] ondansetron HCl 8 mg tablet (Zofran) 8 mg PO TID PRN Nausea #30 tabs 04/02/20 [Rx Confirmed 01/09/23] insulin NPH isoph U-100 human 100 unit/mL subcutaneous suspension (Novolin N NPHU-100 Insulin isophane) 20 unit subcut DIRECTED 05/21/20 [History Confirmed 01/09/23] semaglutide 0.25 mg or 0.5 mg (2 mg/1.5 mL) subcutaneous pen injector (Ozempic) 0.5 mg subcut QWEEK09/24/20 [History Confirmed 01/09/23] cyanocobalamin (vitamin B-12) 5,000 mcg capsule 5,000 mcg PO QWEEK 10/29/20 [History Confirmed 01/09/23] vitamin B12 0.5 mg-folic acid 1 mg tablet 1 tab PO DAILY 03/28/21 [History Confirmed 01/09/23] diazepam 5 mg tablet (Valium) 5 mg PO DIRECTED 1 day #2 tabs 07/17/21 [Rx Confirmed 01/09/23] gabapentin 300 mg tablet 600 mg PO TID 07/26/21 [History Confirmed 01/09/23] dexamethasone 4 mg tablet 20 mg PO ONCE 90 days #60 tabs 03/26/22 [Rx Confirmed 01/09/23] lactulose 20 gram/30 mL oral solution 20 g (30 mL) PO BID PRN Constipation #600 mL 04/09/22 [Rx Confirmed 01/09/23] ondansetron 8 mg disintegrating tablet 8 mg PO Q8H PRN Nausea #30 tabs 06/04/22 [Rx Confirmed 01/09/23] dexamethasone 4 mg tablet 40 mg PO ONCE #40 tabs 07/14/22 [Rx Confirmed 01/09/23] acyclovir 400 mg tablet 400 mg PO BID 90 days #180 tabs 09/24/22 [Rx Confirmed 01/09/23] potassium chloride 10 mEq capsule,extended release 10 meq PO DAILY #30 caps 11/18/22 [Rx Confirmed 01/09/23] amoxicillin 875 mg-potassium clavulanate 125 mg tablet 1 tab PO BID 14 days #28 tabs 12/26/22 [Rx Confirmed 01/09/23] fluconazole 100 mg tablet (Diflucan) 100 mg PO DAILY #14 tabs 12/26/22 [Rx Confirmed 01/09/23] loratadine 10 mg tablet (Claritin) 10 mg PO DAILY 12/26/22 [History Confirmed 01/09/23] azithromycin 250 mg tablet (Zithromax Z-Emiliano) 0 mg PO .COMPLEX #6 tabs 01/26/23 [Rx] Exam Physical Exam Vital Signs: Temp Pulse Resp BP Pulse Ox O2 Del Method 98.8 F 84 20 180/88 H 96 Room Air 01/28/23 00:23 01/28/23 04:18 01/28/23 04:18 01/28/23 04:18 01/28/23 04:18 01/28/23 04:18 Narrative: GEN: Awake, alert, lying on the ER cot she looks moderately toxic, and older than stated age Head: Normal Cephalic, Atraumatic. Eyes: Conjunctiva and sclera clear bilaterally. Nose: External nose and nares normal bilaterally. Mouth: Lips and tongue normal. Neck: No JVD. No thyromegaly. No lymphadenopathy. Lungs: Clear to auscultation bilaterally, no wheezing, no crackles. Heart: Regular rate and rhythm, no murmurs, rubs, or gallops. Abdomen: Soft, normal bowel sounds, no rigidity, guarding, or acute peritoneal signs. Extremities: No swelling or cords in the calves bilaterally, no edema in the ankles bilaterally. Skin: No systemic rashes or lesions. Psychiatric: Calm. Conversant. Cooperative. Neuro: Awake, Alert, and Oriented x 3. No focal or lateralizing deficits. Results Lab Results Labs: Laboratory Last Values Corrected WBC 3.0 X10E3/uL (3.8-11.6) L 01/28/23 01:10 Uncorrected WBC Count 3.0 x10E3/uL (3.8-11.6) L 01/28/23 01:10 RBC 3.24 X10E6/uL (3.60-5.00) L 01/28/23 01:10 Hgb 11.1 g/dL (11.8-15.4) L 01/28/23 01:10 Hct 32.2 % (34.0-46.4) L 01/28/23 01:10 MCV 99.5 fl (80-100) 01/28/23 01:10 MCH 34.2 pg (24.7-34.3) 01/28/23 01:10 MCHC 34.3 g/dL (32.0-35.0) 01/28/23 01:10 RDW 14.7 % (11.9-15.3) 01/28/23 01:10 Plt Count 35 x10E3/uL (150-450) L* 01/28/23 01:10 MPV 9.3 fl (6.3-10.7) 01/28/23 01:10 Neut % (Auto) 64.8 % (.) 01/28/23 01:10 Lymph % (Auto) 20.4 % (.) 01/28/23 01:10 Hodgeman % (Auto) 12.3 % (.) 01/28/23 01:10 Eos % (Auto) 2.4 % (.) 01/28/23 01:10 Baso % (Auto) 0.1 % (.) 01/28/23 01:10 Nucleat RBC Rel Count 0.4 /100 WBC (0-0.5) 01/28/23 01:10 Neut # (Auto) 1.9 x10E3/uL (1.8-7.7) 01/28/23 01:10 Lymph # (Auto) 0.6 x10E3/uL (1.00-4.8) L 01/28/23 01:10 Hodgeman # (Auto) 0.4 x10E3/uL (0.0-0.8) 01/28/23 01:10 Eos # (Auto) 0.1 x10E3/uL (0.0-0.45) 01/28/23 01:10 Baso # (Auto) 0.0 x10E3/uL (0.0-0.2) 01/28/23 01:10 Monocyte Dist Width 19.52 % (0.00-20.00) 01/28/23 01:10 Platelet Estimate Decreased (Normal) 01/28/23 01:10 Plt Morphology Comment Normal (Normal) 01/28/23 01:10 RBC Morphology N/A 01/28/23 01:10 Poikilocytosis Moderate 01/28/23 01:10 Tear Drop Cells Slight 01/28/23 01:10 Ovalocytes Moderate 01/28/23 01:10 PHA Creatinine Clear 69.42 01/28/23 01:10 Sodium 139 mmol/L (136-145) 01/28/23 01:10 Potassium 3.4 mmol/L (3.5-5.1) L 01/28/23 01:10 Chloride 105 mmol/L (98-107) 01/28/23 01:10 Carbon Dioxide 28.8 mmol/L (21.0-31.0) 01/28/23 01:10 Anion Gap 8.6 mEq/L (6.0-15.0) 01/28/23 01:10 BUN 12 mg/dL (7-25) 01/28/23 01:10 Creatinine 0.39 mg/dL (0.60-1.20) L 01/28/23 01:10 Est GFR (CKD-EPI) > 60.0 01/28/23 01:10 Glucose 105 mg/dL (70-100) H 01/28/23 01:10 Calcium 8.7 mg/dL (8.6-10.3) 01/28/23 01:10 Urine Color Dark yellow (Yellow) A 01/28/23 00: Urine Appearance Turbid (Clear) A 01/28/23 00: Urine pH 5.5 (5.0-9.0) 01/28/23 00: Ur Specific [place] 1.023 (1.001-1.030) 01/28/23 00: Urine Protein >=1000 mg/dL (Negative) H 01/28/23 00: Urine Glucose (UA) Normal mg/dL (Normal) 01/28/23: Urine Ketones Trace (Negative) H 01/28/23: Urine Occult Blood 3+ (Negative) H 01/28/23 00: Urine Nitrite Negative (Negative) 01/28/23: Urine Bilirubin Negative (Negative) 01/28/23 00: Urine Urobilinogen Normal mg/dL (Normal) 01/28/23 00: Ur Leukocyte Esterase 3+ (Negative) H 01/28/23 00: Urine RBC 50-100 /HPF (0-4) H 01/28/23 00:29 Urine WBC Innumerable /HPF (0-4) H 01/28/23 00:29 Ur Squamous Epith Cells 3-4 /HPF (0-2) H 01/28/23 00:29 Other Crystals None seen /HPF 01/28/23 00: Urine Bacteria 3+ (None Seen) H 01/28/23 00: Hyaline Casts 0-8 /LPF (0-8) 01/28/23 00:29 Slides for Path Review Cancelled 01/28/23 01:10 A&P - Hospitalist Assessment/Plan (1) UTI (urinary tract infection): (2) Hematuria: (3) Diabetes mellitus: (4) Fibromyalgia: (5) 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 This is a medically critical situation because she is on treatment for multiple myelomaand has pancytopenia and thrombocytopenia at baseline anyway. She also has a history of cirrhosis and KAPADIA. For this reason inpatient status is necessary. She will receive IV Rocephin. She is at highrisk for bacteremia. She will need to be monitored for resolution of hematuria and awaiting the urine culture and sensitivity results. Plan: Admit to the hospital. Inpatient status. Continue IV Rocephin. Check labs daily. Consult hematology/oncology regarding her thrombocytopenia. Documented By: Sherif Ravi, 0540 Signed By: <Electronically signed by Sherif Ravi, DO> 01/28/23 0551 [facility] Work Phone: History general Narrative - Reported* Type Description Date Medical History HTN Medical HistoryHyperlipidemiaMedical HistoryFibromyalgiaMedical HistoryDM II Medical HistoryNASHMedical HistoryThrombocytopeniaMedical HistorySmoldering myelomaMedical Historyaneurysm, aorticMedical Historykidney stonesMedical HistoryCOPDMedical HistoryGERDMedical HistoryMULTIPLE MYLOMAMedical HistoryIRON DEF ANEMIASurgical Historycarpal [id number] [id number] Surgical [id number] HistoryBilateral elbow ligament [id number] HistoryBilateral trigger thumb [id number] History Bilateral knee meniscus [id number] HistoryAppendectomySurgical History knee arthroscopySurgical Historybone marrow 02/24/23Hospitalization Historysee above [employer] Other Hospital course Narrative No data available for this section [facility] Hospital Discharge instructionsAmbulatory Orders* Proceed with Treatment Time Frame: 10/15/22, Location: Determined By Patient [facility] Work Phone: Hospital Discharge instructionsAmbulatory Orders* Imaging on Disk Time Frame: 1 Day, Location: Determined By Patient * Send Medical Records to: Time Frame: 1 Day, Location: Determined By Patient [facility] Work Phone: Hospital Discharge instructions Additional Instructions Tylenol if needed for pain or fever Use your albuterol inhaler at home as instructed Zyrtec or Claritin may be beneficial Humidifier may be beneficial Good handwashing Quarantine for total 5 days Follow-up with oncology if you have any problems persist or worsen with the left arm Please return here if you develop any chest pain, increased dyspnea or any other concerns.[facility] Work Phone: Hospital Discharge instructionsAmbulatory Orders* Referral to General Surgery Location: None Selected * Interventional Radiology Time Frame: 11/16/24, Location: None Selected [facility] Work Phone: Hospital Discharge instructions* Attachments The following attachments cannot be sent through Care Everywhere. * Cryoablation of Tumors (Pakistani) [facility] Progress note Author Shannon Elliott [facility] October 15, 2022 11:04amNote Date/TimeDecemb2021 10:48[facility] [place] [address] Hem/Onc Follow Up Note - OP Signed Patient: Mojgan Pérez MR#: [id number] : 1955 Acct:[id number] Age/Sex: 67 / F Type: REG RCR Copies to: MD Yinka Downey MD~ Subjective Date/Time of Service: Date of Service: 10/15/2022 Time of Service: 10:48 Chief Complaint: Patient is here for a one month follow up with labs for review,prior to treatment today. HPI: 10/15/2022: Mojgan is here for follow-up for her multiple myeloma on modified CYKLONE therapy. Shecontinues to do well and remains active at home. She deniesshortness of breath, chest pain, nausea,vomiting, diarrhea or constipation. Sheis eating and drinking well. No fevers, chills, sweats, bleed ing or rash. She does note mild tongue soreness and on exam it appears she may be developing thrush, very mild currently on the tongue only. We will prescribe nystatin for this. Labs are reviewed andstable overall, ok for treatment. She will follow-upin 4wks with Dr. Marinelli with repeat labs and treatment. 09/17/2022: Mojgan is here for follow-up on modified CYKLONE therapy for her multiple myeloma. Shecontinues with fatigue, but otherwise no new complaints. She has no s/s of infection, no shortness of breath, chest pain, n/v/d or other concerns. In review of her labs, her WBC are 1.4, ANC 0.6 and platelets 43,000. Per Dr. Marinelli, given no s/s of infection and she otherwise feels well, she is okfor treatment. We discussed signs to report related to infection such as fever, chills, etc. and she will call with any concerns. We will follow-up in 3wks withrepeat labs. 08/20/2022: Mojgan is here for 3-week follow-up on modified CYKLONE therapy (cyclophosphamide 300 mg/m2 IV weekly, dexamethasone 20 mg IV weekly, and carfilzomib now 56 mg/m2 IV weekly). Baseline echocardiogram 07/18/2022 showed normal ejection fraction 60 to 65%. I discussed her case with Dr. Benavidez who advised that despite her significant thrombocytopenia she should be treated withfull dose cyclophosphamide/carfilzomib and may support with transfusions as needed. The patient's lowest platelet counts were in the 30,000's after her first week of therapy but now is up to 56,000. She has not hadany clinical bleeding. She also has persistent leukopenia 1900 today with absolute neutrophil countnow 1000. At this point as long as she does not have any significant symptoms of therapy or signs of infection or active bleeding we willcontinue her current dosing. She otherwise notes mild fatigue but no other toxicities. Prior skin rash on Pomalyst has resolved. She will follow-up in 3 weeks fortoxicity check with nurse practitioner and we will order her restagingmyeloma labs with serum protein electrophoresis with immunofixation, quantitative immunoglobulins, and kappa/lambda light chain ratio. She may return sooner ifnew issues arise. Moderate complexity follow-up over 30 minutes to address cytopenias on CYKLONE therapy. 07/10/2022: Mojgan is here for 2-month follow-up of myeloma labs. No changes in medical history and platelet count remains in the 40-50,000 range without bleeding. We held her Pomalyst (as well as daratumumab) this week due to absolute neutrophil count of 300 without any recent infections. She previously held it for 1 week due to neutropenia, took 1 tablet, then had to hold a second week due to neutropenia. We reviewed her kappa/lambda light chain ratio which continues to progress in the wrong direction (total lambda light chains now increased from 109 to 125.7 with ratio from 0.11 to 0.08). Her progressive cytopenias and worsening light chains likely reflects progression of myeloma. We could repeat her bone marrow biopsy but her most recent bone marrow biopsy on10/09/2021 showed hypercellular bone marrow (30%) with slight megakaryocytic and granulocytic hyperplasia and only 1.5% plasma cells (Lambda restricted by flow cytometry). This likely would not change her current management and I discussedher case with Dr. Benavidez of malignant hematology who recommended considering carfilzomib (Kyprolis) with cyclophosphamide. I will contact patient to coordinate baseline echocardiogram forKyprolis and likely she will require dosereductions for her underlying hepatic dysfunction and chronic cytopenias. AfterI reviewed dosing with Dr. Benavidez and pharmacy and review her echocardiogram, goldll coordinate follow-up for change in therapy and chemotherapy consent. For now we will continue daratumumab with altered dose of Pomalyst to 2 mg twice weekly ( and Mondays) until change in therapy. I will not likely send dose reduction of Pomalyst due to planned change in therapy. Moderate complexity 35 minutes for coordination of care. 05/07/2022: Improved rash on 2 mg of Pomalyst, now mild pruritus. Platelet count is 48,000 without bleeding issues. Continues weekly prednisone. Daratumumab isnow monthly since early April. Repeat kappa/lambda light chain ratio slightly higher (106 to 109) But the upward trend is starting to flatten out. F-18 Axumin PET/CT shows no new lesions, relatively stable from 1 year ago. For now given her stable symptoms and pronounced cytopenias, we will continue her current dosing daratumumab/Pomalyst/dexamethasone. Next follow-up with me in 2 months. She will return sooner for issues arise. Moderate complexity visit over 35 minutes. 04/09/2022: Mojgan continues every 2-week durvalumab with Pomalyst now 2 mg daily (dose reduced due to diffuse rash). She is now day 14 of the cycle and isnoted to have platelet count of 40,000 (no associated mucosal bleeding, bright red blood per rectum, or hematuria). No recurrent rash on this dose. She continues her weekly prednisone. I recommended changing her schedule of Pomalyst to 2 mg daily for days 1 through 14, off days 15 through 28 cycle and continuing daratumumab. Her most recent immunoglobulins have shown a steady trend upward for lambda light chain and decrease of kappa/lambda light chain ratio, however since she is now stabilizing her dosing of daratumumab/Pomalyst/dexamethasone I recommend continuing her current dosing for1 more cycle with repeat kappa/lambda light chain ratio in another month. In addition I will set her up for F-18 Axumin PET/CT to compare to PET/CT from 1 year ago (her skeletal survey showed no lesions 6 months ago). She denies any current bone pain.She will proceed with daratumumab dose as previously orderedtoday. 03/19/2022: Mojgan is here for follow-up after adverse cutaneous reaction to her first cycle of Pomalyst. She noted that after starting her first dose of Pomalyst 3 mg daily on 03/05/2022 that about 1 week later on 03/13/2022 she had a diffuse rash all over that was pruritic with increased erythema. She did not have nausea, vomiting, constipation, diarrhea, dyspnea, or any other adverse reactions. She did have a decline of platelet count to 41,000 this week which may be due to her Pomalyst. She called the pharmacy and was instructed to discontinue Pomalyst on 03/13/2022. Her rash has mostly resolved with no furtherpruritus but she still has a few macular lesions over the legs. She has been using Benadryl and topical cortisone cream with improvement of the rash. Otherwise her laboratories are stable. She does have an increased kappa/lambda light chain ratio from 03/05/2022 but this was her first day of therapy. I recommended resuming Pomalyst at next dose level 2 mg daily as soon as new medic ation arrives for 3 weeks on 1 week off. If she has recurrent rash she will again stop and we will consider further dose adjustment. Due to her thrombocytopenia we will hold her daratumumab today andconsume with first day of Pomalyst next week. She may follow-up in about 3 to 4 weeks, possibly with virologist covering at that time. Patient expressed understanding. 02/19/2022: Mojgan is here for follow-up--no new symptoms but her platelet countdropped to 48,000 last week and we are again holding her Revlimid. She has not had any bleeding or infection recently, but she has had uptrending lambda light chains and we discussed changing her therapy from lenalidomide to pomalidomide and continuing her daratumumab which is currently every other week. Her only other concern is constipation which is likely related to her pain medications. ANC was 800 today. --Today we reviewed chemotherapy counseling for lenalidomide in combination withdaratumumab/dexamethasone (stopping Revlimid). Common toxicities were reviewed to include allergic reactions, myelosuppression, thrombosis, fatigue, nausea, vomiting, constipation, diarrhea, mouth sores, and risk of secondary malignancies. Other toxicities may include pneumonitis, neurologic, hepatic and renaltoxicities. The patient signed informed consent and will follow-up as directed. Planning a trip to [place] on March 06, therefore we will hold Revlimid until arrival of her pomalidomide, then have oral chemotherapy visit. We are startingpomalidomide at 3 mg daily days 1 through 21 every 28 days due to baselineliverdysfunction. Follow-up cycle 1 week 2. We will recheck her baseline myeloma labs on start day of pomalidomide with daratumumab. 01/22/2022: Mojgan has no new complaints. She was seen by Dr. Benavidez at for evaluation for transplant and CAR-T options but given her profound thrombocytopenia, neither of these options are felt tuyet optimal for her. She has had gradual worsening of her lambda light chains without any change of r enalfunction or hypercalcemia. Her chronic thrombocytopenia has remained in the 40-50,000 range which is lower than her prior baseline. I reviewed her options with Dr. Benavidez and it is difficult to assess best options due to her chronic thrombocytopenia but standard of care at this point would be tocontinue her daratumumab and transition from the lenalidomide to pomalidomide. We will follow closely with weekly CBCs to determine if thrombocytopenia worsens on thisregimen. I will defer changing her regimen for 1 month since she is starting a new cycle of lenalidomide and has had slow progression of her lambda light chains. She will return in 1 month and will discuss pomalidomide and signed inf ormed consent. Patient is in agreement with this plan. 12/18/2021: Mojgan is here for 3-month follow-up. She has not had any significant changes in medical history other than testing positive for coronavirus infection in early November 2021. She has not been immunized for coronavirus. She notes persistent fatigue but no bone pain. No other recent infections or bleeding episodes. She recently changed from weekly to now every 2 weeks daratumumab 16 mg/kg and remains on low-dose lenalidomide 5 mg daily for2 weeks on 1 week off due to prior thrombocytopenia worsening. October 2021 skeletal survey showed no osteolytic lesions suggestive of myeloma. Initially she had improvement of her platelets to 70-100,000 but today platelets are down to 54,000. She also had some improvement of leukopenia but this is again down to 2800 with ANC 1300 today. Urinerandom M spike is not observed, but she has had progressive increase of her lambda light chains from 30 in December 2020 to 60.2 in October 2021. [place] lambda ratio has also started to decline to 0.21 in October 2021. For now I'm continuing her daratumumab with Revlimid at current dosing, but I contacted Dr. Benavidez at [facility] for CAR-T celleligibility. If he has recommendations to change her therapy, I will let her know. Otherwise I will have her follow-up with me in 1 month (she will have repeat myeloma labs 1 week prior to visit). 09/20/2021: After telephone consultation with Dr. Benavidez at , we resumed repeat loading doses of weekly daratumumab 16mg/kg and changed to low dose lenalidomide 5mg daily. She has had 2 courses of antibiotics for sinus infection over the past month and was noted to have neutropenia with ANC 900, platelets 44,000 week 2 of Revlimid, therefore this was held for one week and resumed Thursday after ANC returned to 1000. Platelet counts have persisted at 40-50,000 range without active bleeding. Otherwise tolerating therapy well. Still improved hip pain and ambulation after recent course of palliative radiation therapy. For now we will continue Daratumumab with Revlimid and Dexamethasone as ordered with weekly CBC. Gradually increasing lambda light chains--pending evaluation at for CAR-T celltherapy eligibility (has not yetbeen contacted for appointment). 4 week f/u with me with CBC, CMP, and myeloma labs (follow quant immunoglobulins and [place]/Lambda light chain ratio with skeletal survey in 2 weeks so results available for appointment). 08/30/2021: Mojgan is here for 2-week follow-up for completion of her palliative radiation therapywith significant improvement of pain in her right hip and pelvis. [facility] [place] [facility] baseline for possible Kyprolistherapy. This returned with ejection fraction 60% which is normal with grade 1 left ventricular diastolic dysfunction and 1+ tricuspid valve regurgitation and traceto 1+ aortic valve regurgitation. Otherwise unremarkable. I discussed her casewith Dr. Benavidez of malignant hematology at [facility]. He advised against Kyprolis therapy given her underlying liver dysfunction and recommended repeating loading doses of daratumumab weekly as well as low-dose lenalidomide which we will start at 5 mg daily since she has chronic thrombocytopenia. We will send for CAR-T therapy as a possible therapeutic option. The patient agreed with changing daratumumab to weekly and we will have her sign consent next week for change to low-dose lenalidomide therapy. Next follow-up with me will be in about 2 weeks for week 2 lenalidomide with daratumumab. 08/16/2021: One month followup, she recently completed palliative radiation therapy to right hip and pelvis. Platelet count still in 50,000 range with increased bruising but no bleeding. Still has some pain in right hip but slowlyimproving after radiation therapy. Slowly worsening lambda light chain --she is scheduled for ECHO next week. We discussed possibly changing therapy from Daratumumab, Velcade, Dexamethasone to Kyprolis, low dose lenalidomide, dexamethasoneif adequate cardiac function. Iwill discuss this with Dr. Benavidez for dosing anddetermine if CAR-T therapy is another possible option (although we may be limited due to chronic thrombocytopenia and liver disease). Followup 2-3 weeksto review results and possible consent for change in therapy. 07/17/2021: 2-month follow-up on multiple myeloma. She reports that Thursday she developed severe painin the right leg that started proximal to the knee creating it to the hip. She had increased pain with weightbearing on the right and has been using a walker at home secondary to this. She did not feel a pop or shift in ambulation, but has been using her Percocet for pain control at home. In reviewing her laboratories platelet count remains in the 52,000 range and she is otherwisPe tolerating daratumumab well. I recommended sending for right hip, femur, and knee plain film imaging that did not show any fracture. She does have a gradually rising lambda light chain but no other significant changes in her labs. I reviewed her case with Dr. Cheng of orthopedic surgery who also reviewed her prior PET/CT showing uptake in this area. We will obtain a right hip MRI, keep her completely nonweightbearing on the right leg with walker for transfers and she has an urgent orthopedic follow-up following her MRI. I will follow-up with her in 1 month to review management and we will determine if she requires prophylactic kenton for stability of the hip based on herMRI. 05/24/2021: Here to followup 05/03/2021 bone marrow biopsy--noted to have decreased cellularity 25%, flow cytometry with 0.2% plasma cells and a 1.5% monoclonal B- cell population. FISH showed 13q and 1qabnormalities but normal cytogenetics. No myelodysplasia seen. I reassured her that recent thrombocytopenia is more likely related to splenic sequestration from liver disease and not worsening myeloma. For now continue current regimen. Will alsorecheck B12, folate, and iron profile with next labs--followup in 2 months with myeloma labs, sooner prn. 04/24/2021: 1 month followup to review PET/CT. Over the past 2 days, she notes episodes of sharp left sided neck pain over sternocleidomastoid muscle and mastoid area. No radiculopathy down left upperextremity. No new side effects of Daratumumab. F18 PET/CT shows largely unchanged diffuse uptake through multiple bony sites in axial and articular skeleton. Lambda light chains rising over past 2 month and decline of platelet count to 57,000 without bleeding. MRIof thoracic spine did not show significant thoracic canal stenosis. Due to worsening neck pain with extensive uptake on F18 PET/CT--we will send for cervical MRI. Palliative medicine has increased Percocet to tid. We will repeat bone marrow biopsy due to rising lambda light chain and falling platelet count to determine if progressionof myeloma noted. This will be scheduled in the next 1-2 weeks. 03/28/2021: 2 month followup for multiple myeloma. More recently notes neck andleft shoulder pain. Fatigue and constipation stable. Labs show stable anemia and thrombocytopenia. Serum M-spike now asymmetric gamma (no quantifiable spike). Slowly improving IgG to near normal. [place]/lambda light chain ratio normal with mildly increased lambda light chains. MRI of thoracic spine for evaluation of increasing left shoulder pain. For now we will continue current dosing of Daratumumab and recheck F18 PET/CT for response in late April 2021. 01/21/2021: Mojgan is accompanied by her daughter for 2 month followup--now Daratumumab maintenance. She notes persistent fatigue and recently added as needed laxatives to stool softener for management of constipation. Persistent left hand pain--correlates to an area of bone uptake on PET/CT. Overall F18 PET/CT appears stable with no new areas if FDG avidity (still extensive bone FDGuptake). We reviewed prior plain xrays of left hand from November--she agrees toevaluation by orthopedic surgery (determine if biopsy or steroid injections). M-spike and kappa/lambda light chains pending. CBC (platelets 60-70,000); CMP stable. Will followup in 2 months with exam and labs. 11/26/2020: Mojgan is accompanied by her daughter for 2 month followup--now Daratumumab maintenance. Stable leukopenia/low platelet 70,000. Notes 3 days of hematuria and mild dysuria. Sending UA and possible culture. Otherwise no new bone pain. Blood sugars stable. M-spike and kappa/lambda light chain ratiostable. Next f/u 2 months after one year f/u PET/CT to determine response to therapy. 09/24/2020: Mojgan presents (accompanied by her daughter) for cycle 8, week 2 followup [id number] mg/kg IV weekly, Dexamethasone 20mg weekly, and Velcade 0.7 mg/m? now sq once weekly for every 3-week cycle (21 days). She notes neuropathy symptoms are stable. Tolerating therapy well without fatigue. No bleeding and thrombocytopenia stable in 60-70,0000 range. On 10/02 she will be due for maintenance therapy with Daratumumab alone once per month. I will f/u with her in 2 months with myeloma labs, sooner as needed. Velcade and Dexamethasone will be stopped after 8 cycles. 08/13/2020: Mojgan is here for cycle 6, week 2 (day 14) daratumumab 16 mg/kg weekly, Velcade 0.7 mg/m? now sq once weekly for every 3-week cycle (21 days), and dexamethasone 20 mg weekly. No new symptoms--improving thrombocytopenia to 79,000 and improved leukopenia. 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 Still has improvement of M-spike, IgA normal and decreased lambda light chain and K/L ratio. We discussed that week 25 in Oct she will change to monthly daratumumab with weekly Velcade (1mg/m2) and Dexamethasone. Continue to follow every 6-8 weeks until maintenance schedule. 06/18/2020: Mojgan is here for cycle 3 week 3 (day 21) daratumumab 16 mg/kg weekly, Velcade 0.7 mg/m? now sq once weekly for every 5-week cycle (35 days), and dexamethasone 20 mg weekly. Tolerating well with stable leukopenia and thrombocytopenia. Mild increased symptoms of hand and foot neuropathy, but no limitation in activity. Now following with diabetes management clinic with variable glucosecontrol. We reviewed lower IgA (now M-spike IgG kappa after Daratumumab--previously IgA lambda). Lambda light chain has decreased from 516 to 41.3 to now 18.5 with normalization of K/L ratio. Continue followup myeloma labs in 6 weeks, visit in 8 weeks. 05/21/2020: Mojgan is here for cycle 2 (week 7 overall) daratumumab 16 mg/kg weekly, Velcade 0.7 mg/m? now sq once weekly for every 5-week cycle (35 days), and dexamethasone 20 mg weekly. Tolerating well with stable leukopenia and thrombocytopenia. No significant neuropathy. Noted to have improvement in lambda light chains. No further daratumumab infusion reactions. No infections,stable constipation, pain control improved. No other complaints. Continue monthly f/u with myeloma labs. --Diabetes management--added insulin on dexamethasone days. Hyperglycemia improving. ------ ---- 01/18/2020 (phone followup)--The patient's son was available by phone and her daughter was contactedin a separate phone call as patient presented unaccompanied due to COVID-19 precautions in our clinic during the current epidemic. Bone marrow biopsy results were reviewed as follows from procedure pe rformed 01/26/2020: --Bone marrow biopsy was suboptimal for evaluation. --Increased lambda light chain restricted monoclonal plasma cells (1.9% by flow cytometry, approximately 6% and aspirate count, but 50% by immunohistochemical stains [id number]). Sideroblastic iron present, negative for ring sideroblasts. Peripheral blood smear with mild red blood cell anisocytosis and polychromasia, leukopenia with absolute neutropenia (1000) and thrombocytopenia (54,000) consistent with prior baseline. Note: I discussed the results with Dr. Crook 01/26/2020. Preliminary findings were also discussed with Dr. Cummings 01/27/2020. Morphologic findings, immunohistochemical stains, flow cytometry, and ancillary studies may under represent the extent and severity of disease. The results of FISH myeloma panelwith prognostic markers and cytogenetic analysis are pending. --Given the patient's hip pain and presence of lytic lesions, she meets clinicalcriteria for activemyeloma. Given her hip pain and lytic lesions in weightbearing areas she was offered radiation therapy. She had a limited courseof hypofractionated palliative therapy to bilateral proximal femurs [address] Ahn. We discussed that given the COVID-19 epidemic and absence of othersignificant changes other than bony lesions (normal renal function, normal calcium, stable cytopenias), I would defer active therapy for myeloma for 4 to 6 weeks. Since she has significant history ofliver disease I will discuss her case with Dr. Piter Benavidez at [facility] malignant hematology for optimal regimen. The patient is not a transplant candidate given her nonalcoholic steatohepatitis and chronic thrombocytopenia but may be a candidate for either doublet therapy (Revlimid/dexamethasone) or triplet therapy with either Velcade/Revlimid/dexamethasone or daratumumab/Revlimid/dexamethasone. --02/03/2020: Mojgan presented unaccompanied for follow-up of bone marrow aspiration and biopsy performed by Dr. 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 The patient had been noting increased left hip pain over the past several months andplain films of the pelvis and bilateral femurs did show subtle lucencies in the bilateral proximal femurs corresponding to PET/CT findings but no other additional sclerotic lesions identified. No pathologic fractures were seen. --03/05/2020: Mojgan notes improvement of bilateral hip pain since radiation. No other changes in medical history in the past month--no infections, normal renal function, no hypercalcemia. Stable platelet counts without bleeding. Shewas given written literature regarding Dexamethasone, Velcade (thatwould be dose reduced to 0.7mg/m2 twice weekly), weekly Daratumumab and Revlimid, but I will defer decision of which regimen to use until discussion in malignant hematology tumor board. Also referring for infusion port placement prior to initiating therapy. Sign informed consent prior to initiating therapy. --Discussed with Dr. Benavidez who favors Daratumumab combination--will request prior liver biopsy and records from [facility] liver clinic. The patient and her son (by telephone) expressed understanding and will follow- up as directed in 2 weeks for consent and likely start of therapy. --04/02/2020: Mojgan presents after infusion port placement at [facility] by interventional radiology due to platelet count 40,000--she had increased bruising at site post procedure, but this has completely resolved. Her hip painis well controlled since completion of palliative radiation and no newareas of pain. She has previously reviewed information regarding Daratumumab (first dosesplit 8mg/kg IV D1,D2, then if well tolerated 16mg/kg IV weekly), Velcade at about 50% dose (for liver dysfunction) 0.7mg/m2 D1,D4,D8, D11, and [id number] IV weekly--repeat for every 3 week cycles 1st 3 cycles. She will take chemo class and likely start therapy within 2 weeks with toxicity visit in 3 weeks. Today we reviewed chemotherapy counseling for Daratumumab, Velcade, and Dexamethasone. Common toxicities were reviewed to include infusion reaction including rash/dyspnea/wheezing, myelosuppression, fatigue, nausea, vomiting, constipation, diarrhea, mouth sores, and alopecia. Other toxicities may in cludepneumonitis, neurologic, thromboembolism, hyperglycemia, hepatic and renal toxicities. The patient signed informed consent and will follow-up as directed. --04/19/2020: Mojgan is here for cycle 1 week 2 daratumumab 16 mg/kg weekly, Velcade 0.7 mg/m? twice weekly for first 2 weeks of every 3-week cycle, and dexamethasone 20 mg weekly. She did have an infusion reaction with first daratumumab with dyspnea and flushing but this improved after first dose and shehas not had recurrent infusion reactions. We have continued Velcade despite platelet counts in the 40,000 range without bleeding as we know that her baseline platelet counts remain in this range and she has not had any significant change from her baseline. Dexamethasone has caused hyperglycemia with blood sugars up to 400 and we are referring to diabetes management clinic. Otherwise she denies any significant nausea, emesis, fever, chills, night sweats, constipation, diarrhea, rash, mouthsores, or alopecia. She has not hadany change of baseline neuropathy. Liver function tests remain stable. She notes that her hip pain is well controlled since prior palliative radiation and she saw radiation oncology earlier this week with no new recommendations. I will send her myeloma labs including serum and urine protein electrophoresis, quantitative immunoglobulins, and serum kappa/lambda light chains in 2 weeks andfollow-up with her in 3 weeks. She may be seen sooner if new issues arise. This is a 66-year-old lady on chronic disability has a history of arthritis, diabetes mellitus, hypertension, COPD, GERD, and fibromyalgia [facility]. She states that she was followed with Dr. Kumari prior to his senior care and was told that she had an elevated protein level as well as thrombocytopenia but never had clinical bleeding. She is 4 para4 without complicationsand was never told that she was thrombocytopenic while . She is had multiple prior surgicalprocedures without any clinical bleeding. She had been recommended for a pain procedure with Dr. Wilson but he declined to do the procedure because her platelet count was less than 100,000. For this reason she received 2 platelet transfusions, with little improvement of her platelet count and her second transfusion resulted in throat tightening due to allergy to platelets . She has never beentreated with steroids and has never been told that she has immune thrombocytopenia. She has mild leukopenia with relative neutropenia, absolute neutrophil count of 400-800 and mild lymphocytosis. Hemoglobin is normal. She has not had any bright red blood per rectum or epistaxis. She has no history ofbleeding within the family however does have a mother and sister diagnosed with colon cancer, a brother diagnosed with lung cancer, and another sister diagnosedwith breast cancer. She had prior pain in the right hand mainly at the first MCP joint with some associated swelling and right foot pain and was evaluated by podiatry. She was told that her blood tests were negative forgout. She had screening with MALLORY, CCP, and rheumatoid factor all of which were negative. She says that she previously saw Dr. Petersen for cirrhosis but did not know of any specific therapy. We reviewed these findings from her liver ultrasound ordered by Dr. Benavidze Summer 2016. Initial consultation with me March 16, 2017. --The patient has been followed by me for some time for diagnosis of smoldering myeloma with a prior bone marrow biopsy May 2017 showing 15% plasma cells but the patient remained asymptomatic without bone pain or other CRAB criteria for therapy. She is also noted to have an ascending aortic aneurysm and has chronicliver disease with cirrhosis secondary to nonalcoholic steatohepatitis. She haschronic thrombocytopenia without bleeding ranging from 50-100,000 this is felt to be due to sequestration from her nonalcoholic steatohepatitis. She was previously on a liver transplant list but was recently notified that she is no longer a candidate for liver transplant. She has had chronic pain from f ibromyalgia but noted increasing bilateral hip and upper thigh pain over the last 6 months. She also is followed for EGD/colonoscopy with last documented procedure 09/21/2018: 1. Normal EGD, 2. Mild sigmoid diverticulosis, 3. Internal hemorrhoids, grade 2, 4. Anal fissure with active bleeding cauterized by bipolar cautery Bone osseous survey in June 2019 showed osteopenia and degenerative changes but no lytic or blastic lesion. Patient had an F-18 PET scan 01/02/2020 which showed multiple areas of involvementof bones with increased SUV activity. She was contacted with these results by phone and I recommended bone marrow aspirate and biopsy for assessment and analysis. Her prior labs were reviewed. Her SPEP does not show anymonoclonal gammopathy. On VAHID there appears to be a trace of monoclonal gammopathy. Free light chain ratio is less than 100. There is no evidence of renal sufficiency. Patient is not anemic. She doeshave some abnormal areas on bone scan. - Summary of Therapies Summary of Therapies: 1. 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 2. She underwent a single dose of palliative radiation therapy to bilateral hips, receiving 800 cGyto right and left hip in 1 fraction in separate vaz (with a single isocenter). The treatments were given with AP/PA vaz [id number] MV photons and MLC blocks. 3. Deferred active therapy for myeloma 2 months given COVID-19 epidemic with increased risk of myelosuppression and viral transmission of contacts. --Follow-up 03/05/2020 I discussed her case with Dr. Piter Benavidez at malignant hematology. --Given her significant hepatic dysfunction, I presented her case at malignant hematology tumor board to discuss optimal therapy. 4. Cycle 1 day 1 04/10/2020: Dose reduced Velcade 0.7 mg/m? twice weekly (day 1,day 4, day 8, day 11)every 3 weeks with dexamethasone 20 mg weekly and daratumumab 16 mg/kg weekly of each 21-day cycle.After first week, Velcade decreased to 0.7mg sq weekly due to thrombocytopenia. --We will need to watch liver function, platelet count, and neuropathy closely on Velcade. 5. Cycle 9 day 1 10/02/2020: Daratumumab 16mg/kg once monthly maintenance therapy until progression. 6. 07/31/2021: Palliative radiation therapy to right supra chondral/soft tissuearea of hip which is PET positive. She received a dose of 3000 cGy in 10 fractions from 07/31/2021 to 08/15/2021 over 15 elapsed days 7. 08/30/2021: Right hip pain improved after radiation. Due to disease progression with persistent cytopenias, changed to repeat loading doses of daratumumab 16 mg/kg weekly for cycles 1 through 3 with Revlimid 5 mg daily for 3 weeks on 1 week off. Held Revlimid second week due to neutropenia with sinus infection, resumed 3 days ago (09/17/2021). Referred for CAR-T therapy evaluation. 8. 12/18/2021: Daratumumab is now 16 mg/kg every 2 weeks with Revlimid 5 mg daily for 2 weeks on 2 weeks off due to neutropenia and thrombocytopenia. Stillpending evaluation for CAR-T therapy. 9. 01/22/2022: Patient is not deemed a candidate for stem cell transplant or CAR- T therapy at this time. Discussed changing from current Revlimid to pomalidomide with continued daratumumab 16 mg/kg every 2 weeks. Plan change in therapy in 1 month. 10. 02/19/2022: Continue daratumumab 16 mg/kg IV every 2 weeks and changed to pomalidomide now 3 mg daily days 1 through 21 of each 28-day cycle (lower dose due to baseline liver dysfunction) -- 03/19/2022: Patient was noted to tolerate Pomalyst only 1 week (03/05- 03/13/2022)due to grade 3 rash. This resolved after stopping medication 1 week later. 1 dose level reduction Pomalyst to 2 mg daily days 1 through 21 of each 28-day cycle. Also holding daratumumab daily for platelet count of 41,000 and will resume at full dose with first dose of Pomalyst. -- 04/09/2022: Platelet 40,000 without bleeding. Will continue monthly Daratumumab with change of Pomalyst to 2mg D1-14 each 28 day cycle (off 2 weeks due to low platelets). Rising lambda light chains,unable to tolerate Pomalyst due to cytopenias, stopped mid 07/2022. 11. 07/18/2022: carfilzomib (dose 20mg/m2 day one then 56mg/m2 D8, D15) with cyclophosphamide 300mg IV weekly and weekly dexamethasone. Baseline echocardiogram EF 60-65%. We will follow closely for her chronic cytopenias and liver dysfunction. ROS Details: All systems reviewed & no additional complaints except as documented PMF - Medical History Medical History: Medical History (Last Reviewed 08/20/22 @ 10:58 by Fabiola Marinelli MD) Aortic aneurysm COPD (chronic obstructive pulmonary disease) Diabetes Fibromyalgia GERD (gastroesophageal reflux disease) Hypertension Iron deficiency Multiple myeloma Neutropenia Smoldering multiple myeloma (SMM) Smoldering myeloma Temporary low platelet count - Surgical History Surgical History: Surgical History (Last Reviewed 08/20/22 @ 10:58 by Fabiola Marinelli MD) H/O: hysterectomy History of appendectomy History of cholecystectomy - Social History Smoking Status: Former smoker Tobacco Type: cigarettes Substance Use Type: None Social History Comments: Lives with son a [facility] Home Medications & Allergies Allergies erythromycin base [From E-Mycin] Allergy (Verified 08/20/22 10:47) Hives latex Allergy (Verified 08/20/22 10:47) Unknown Reaction moxifloxacin [From Avelox] Allergy (Verified 08/20/22 10:47) Hives Quinolones Allergy (Verified 08/20/22 10:47) Unknown Reaction tetracycline Allergy (Verified 08/20/22 10:47) Unknown Reaction Home Medications carvedilol 12.5 mg tablet 12.5 mg PO BID 11/20/17 [History Confirmed 08/20/22] duloxetine 60 mg capsule,delayed release 60 mg PO DAILY 11/20/17 [History Confirmed 08/20/22] insulin detemir U-100 100 unit/mL (3 mL) subcutaneous pen 26 units subcut QHS 11/20/17 [History Confirmed 08/20/22] oxycodone 10 mg tablet 10 mg PO TID PRN Pain 11/20/17 [History Confirmed 08/20/22] albuterol sulfate 90 mcg/actuation aerosol inhaler 2 puff inhalation Q6H PRN Shortness Of Breath 11/24/17 [History Confirmed 08/20/22] fluticasone 250 mcg-salmeterol 50 mcg/dose blistr powdr for inhalation (Advair Diskus) 1 inh inhalation Q12H PRN Shortness Of Breath 11/24/17 [History Confirmed 08/20/22] omeprazole magnesium 20 mg tablet,delayed release (Prilosec OTC) 40 mg PO DAILY 11/24/17 [History Confirmed 08/20/22] cholecalciferol (vitamin D3) 25 mcg (1,000 unit) capsule (Vitamin D3) 1,000 unitPO DAILY 04/13/19 [History Confirmed 08/20/22] metformin 500 mg tablet,extended release 24 hr 500 mg PO BID 03/05/20 [History Confirmed 08/20/22] ondansetron HCl 8 mg tablet (Zofran) 8 mg PO TID PRN Nausea #30 tabs 04/02/20 [Rx Confirmed 08/20/22] insulin NPH isoph U-100 human 100 unit/mL subcutaneous suspension (Novolin N NPHU-100 Insulin isophane) 20 unit subcut DIRECTED 05/21/20 [History Confirmed 08/20/22] nystatin 100,000 unit/mL oral suspension 100,000 unit buccal DAILY oral pain 90 days #500 mL 06/18/20 [Rx Confirmed 08/20/22] semaglutide 0.25 mg or 0.5 mg (2 mg/1.5 mL) subcutaneous pen injector (Ozempic) 0.5 mg subcut QWEEK09/24/20 [History Confirmed 08/20/22] cyanocobalamin (vitamin B-12) 5,000 mcg capsule 5,000 mcg PO QWEEK 10/29/20 [History Confirmed 08/20/22] vitamin B12 0.5 mg-folic acid 1 mg tablet 1 tab PO DAILY 03/28/21 [History Confirmed 08/20/22] diazepam 5 mg tablet (Valium) 5 mg PO DIRECTED 1 day #2 tabs 07/17/21 [Rx Confirmed 08/20/22] gabapentin 300 mg tablet 600 mg PO TID 07/26/21 [History Confirmed 08/20/22] dexamethasone 4 mg tablet 20 mg PO ONCE 90 days #60 tabs 03/26/22 [Rx Confirmed 08/20/22] lactulose 20 gram/30 mL oral solution 20 g (30 mL) PO BID PRN Constipation #600 mL 04/09/22 [Rx Confirmed 08/20/22] ondansetron 8 mg disintegrating tablet 8 mg PO Q8H PRN Nausea #30 tabs 06/04/22 [Rx Confirmed 08/20/22] dexamethasone 4 mg tablet 40 mg PO ONCE #40 tabs 07/14/22 [Rx Confirmed 08/20/22] dexamethasone 4 mg tablet 40 mg PO ONCE #40 tabs 08/15/22 [Rx Confirmed 08/20/22] potassium chloride 10 mEq capsule,extended release 10 meq PO DAILY #30 caps 08/18/22 [Rx Confirmed 08/20/22] acyclovir 400 mg tablet 400 mg PO BID 90 days #180 tabs 09/24/22 [Rx] nystatin 100,000 unit/mL oral suspension 4 ml PO QID #200 mL 10/15/22 [Rx] Objective - Height/Weight Height/Weight: Height 5 ft 2.99 in Weight 83.9 kg BSA for Today's Weight 1.91 - Vital Signs Vital Signs: 10/15/22 10:29 Temperature 98.1 F Pulse Rate [Left Brachial] 84 Respiratory Rate 18 Blood Pressure [Right Arm] 142/88 H 02 Sat by Pulse Oximetry 98 Oxygen Delivery Method Room Air - Pain Generalized Pain Intensity: 3 Bilateral Hip Pain Intensity: 5 Left Hip Pain Intensity: 4 Lower Back Pain Intensity: 7 Left Neck Pain Intensity: 4 Back Pain Intensity: 0 Right Thigh Pain Intensity: 3 Bilateral Leg Pain Intensity: 5 Generalized Head Pain Intensity: 4 Bilateral Shoulder Pain Intensity: 6 Left index finger Pain Intensity: 4 - Distress Screening Distress Screen Results: RN Distress Screening Start: 02/07/20 10:17 Freq: Status: Complete Protocol: Document 05/01/20 09:33 DB (Rec: 05/01/20 09:33 DB [id number]) Distress Screening Distress Score: 0 No worry/distress Distress Screening Total 0 RN Distress Screening Start: 07/26/21 12:37 Freq: Status: Active Protocol: Document 07/26/21 13:20 DB (Rec: 07/26/21 13:20 DB [id number]) Distress Screening Distress Score: 2 Physical Concerns Pain Distress Screening Total 2 Physical Exam Narrative: Patient is alert and oriented x3. HEAD / FACE: Normocephalic. No tenderness to palpation over scalp, no sinus tenderness to palpation. EYES: Pupils are equal and reactive to light. Conjunctivae and lids are benign in appearance. Ocular movement intact. EARS: Hearing grossly intact. NOSE / MOUTH / THROAT: Tongue with trace amt of white coating to sides of tongue, none in the throat or cheeks. Mild erythema to tongue as well, no swelling. NECK / THYROID: No cervical adenopathy on exam. Thyroid is symmetrical, withoutthyromegaly, masses or palpable nodules. RESPIRATORY: Normal inspection. Lungs clear to auscultation and percussion. No wheezing, rales, rhonchi or rubs. Normal effort. CARDIOVASCULAR: Regular rate and rhythm. No murmurs, gallops, or rubs. ABDOMEN: Bowel sounds normoactive. Soft, nontender and non-distended. No hepatosplenomegaly. No masses. INTEGUMENTARY: The skin is unremarkable. No suspicious lesions or rash. No bruising or petechiae noted. MUSCULOSKELETAL: Normal musculature, normal ROM upper and lower extremities, no crepitus. EXTREMITIES: Trace bilateral leg edema. No cyanosis or clubbing. NEUROLOGICAL: Alert and oriented. Cranial nerves intact. No gross motor or sensory deficits, patient ambulates unassisted. PSYCHIATRIC: No anxiety or evidence of depression. Results - Labs Labs: Diagram of Most Recent CBC and CMP 10/14/22 09:35 10/14/22 09:35 Labs - Last 7 Days 10/14/22 09:35: PHA Creatinine Clear 69.70, Sodium 140, Potassium 3.4 L, Chloride 102, Carbon Dioxide 28.8, Anion Gap 12.6, BUN 12, Creatinine 0.43 L, Est GFR ( Amer) > 60, Est GFR (Non-Af Amer) > 60, Glucose 132 H, Calcium 8.8, Total Bilirubin 1.4 H, AST 35, ALT 37, Alkaline Phosphatase 94 H, Total Protein 5.0 L, Albumin 3.0 L, Globulin 2.0, Albumin/Globulin Ratio 1.5 10/14/22 09:35: Corrected WBC 1.9 L, Uncorrected WBC Count 1.9 L, RBC 2.98 L, Hgb 10.5 L, Hct 31.3 L, MCV 104.9 H, MCH 35.3 H, MCHC 33.6, RDW 16.9 H, Plt Count 49 L, MPV 9.3, Neut % (Auto) 55.1, Lymph % (Auto) 23.7, Hodgeman % (Auto) 17.3, Eos % (Auto) 3.6, Baso % (Auto) 0.3, Nucleat RBC Rel Count 0.1,Neut # (Auto) 1.0 L, Lymph # (Auto) 0.4 L, Hodgeman # (Auto) 0.3, Eos # (Auto) 0.1, Baso # (Auto) 0.0, Platelet Estimate Decreased, Plt Morphology Comment Normal, RBC Morphology N/A, Polychromasia Slight, Poikilocytosis Slight, Anisocytosis Slight, Tear Drop Cells Slight Assessment and Plan - TNM Staging Staging: Stage IIIA Multiple Myeloma (Durie Boring criteria) (1) Multiple myeloma Qualifiers: Multiple myeloma remission status: not in remission Qualified Code(s): C90.00 - Multiple myeloma not having achieved remission Mojgan 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 She has high risk cytogenetics and I [facility]. Her persistent thrombocytopenia made her ineligible for any clinical trials, and preventedher from receiving local pain procedures given her chronic low back pain. --05/2017 PET/CT images and reports performed for staging to exclude bone involvement with myeloma. 2 indeterminate areas of uptake thought to be degenerative arthritis vs early bone findings of myeloma (right parietooccipitalarea and upper sternum). She has remained asymptomatic [...] showed no lytic lesions and she has stableshoulder, hand, and right SI joint pain (although likely due to fibromyalgia. --Prior osseous survey 07/01/2019 showed osteopenia but no compression fractures or lytic lesions were identified. She had no significant change in myeloma labs(mild increase of urine M-spike, kappa/lambda ratio, and normal serum M- spike and quant immunoglobulins). Urine protein still undetectable, therefore will continue surveillance every 6 months with the same labs--no hypercalcemia, renaldysfunction (or proteinuria), anemia, or new bone symptoms. [...] proteins with urine M spike 43.1 but totalprotein 34.4, with no reported urine creatinine. --We deferred immunosuppressive chemotherapy for about 1 month due to control ofsymptoms after palliative radiation and concern of potential peak of COVID-19 inlate January early March. --She presented for follow-up 03/05/2020 and we discussed potential therapy options (with son available by phone). --I discussed her case with Dr. Piter Benavidez of malignant hematology, possibly presenting the patient in hematology tumor board at [facility]. --Infusion port placed 03/22/2020 at [facility] due to low platelets. No complications. --03/12/2020: Myeloma labs with no serum M-spike, + urine M spike 22.2mg/24h (14%). Immunofixation IgA lambda specificity. IgA normal 227, Serum kappa 20.6, serum lambda 516.7, Free kappa/lambda ratio0.04. Normal renal function and calcium. Lower ANC 600 and platelets 40,000 --04/10/2020: Started cycle 1 day 1 of weekly dexamethasone 20 mg IV (careful to watch blood sugars with diabetes and known hepatic dysfunction), decreased dose of bortezomib 0.7 mg/m? twice weekly for2 weeks on 1 week off (due to known liver disease and thrombocytopenia), and daratumumab 8mg/kg D1,D2 IV first week,then 16 mg/kg IV weekly and we may consider Revlimid as a 4th medication if needed (deferred for worsening neutropenia and thrombocytopenia--I am reluctant to add this therapy initially). --------- --01/21/2021: One year f/u F18 PET/CT with stable FDG avidity, monoclonal labs (SPEP, Quant Igs, kappa/lambda ratio) all pending. Stable CBC and CMP. Persistent pain left hand 2nd MCP joint--increaseduptake on PET/CT but no lesion on left hand xray from 11/2020. Sending for ortho evaluation. For nowcontinue once monthly Daratumumab. F/u with myeloma labs and exam in 2 months, sooner prn. --05/24/2021: Bone marrow biopsy does not show significant progression although poor prognosis mutation 1q with 13q on FISH. Hypocellular with recent worseningplatelets without bleeding--will recheck B12, folate, and ferritin. [...] sent for plain films of the hip femurand knee showing degenerative changes but no acute [...] progression although she still has slow rise inlambda light chain and platelet count remains in [...] check. She will sign Revlimid consent Thursday. Sheis in agreement with this plan. --09/20/2021: Started daratumumab loading doses weekly with Revlimid on 09/04/2021. Held therapy forANC 900 and platelet 42,000 with sinus infection, now resolved and resumed Revlimid 5mg daily on 09/17. Will continue therapy as prescribed with weekly CBC and hold Revlimid as needed for cytopenias.Evaluation for CAR[facility]T therapy at [facility]. Send myeloma labs and skeletal survey [...] current cycle of Revlimid with change to pomalidomide4 mg daily, follow weekly CBCs after change in therapy and determine optimal dose based on symptomsand cytopenias. Patient is in agreement with this plan. Next follow-up with me in 1 month and we will defer next light chain analysis until 1 month after change in therapy. --02/19/2022: Continued rise in lambda light chains and worsening thrombocytopenia. Today we reviewed informed consent for adding pomalidomide 3 mg daily days 1 through 21 every 28 cycle 2 every otherweek daratumumab. We are dropping Revlimid due to [...] initial cycle was only given 03/05-03/13/2022. Now thatradha has complete resolution of symptoms she may resume pomalidomide at 1 dose level reduction 2 mg daily for days 1 through 21 of each 28-day cycle. We are also holding her daratumumab today due to declining her platelet count 41,000 without bleeding. Repeat kappa/lambda light chain ratio was increased 80 on 4but this was her first dose of pomalidomide. Plan anticipate arrival of pomalidomide within the next 1 to 2 weeks and she may resume daratumumab on day1 of therapy. Her next follow-up will be in about 3 to 4 weeks to review toxicities. She is instructed that if she has recurrent intolerable rash she may contact us and let us know. At her 4-week follow-up we will reorder her serumkappa/lambda light chain analysis with SPEP and immunofixation to assess initialresponse to therapy. Moderate complexity visit over 25 minutes to review chemotherapy toxicity. --04/09/2022: Mojgan has not had any recurrent rash with lower dose of pomalidomide 2 mg daily. She is now day 14 and has platelet count 40,000 without bleeding. Otherwise she is tolerating therapy well without adverse effects. Her most recent labs for following myeloma show normal mild increase herfree lambda from 87 to 106, kappa/lambda ratio decreased 0.10-0.09. I will give her 1 more month ofpomalidomide with daratumumab and dexamethasone. The pomalidomide dose will be changed to 2 mg p.o.days 1 through 14, off days 15 through [...] bony lesions. Her kappa/lambda light chain ratio remainsrelatively stable since early March (0.09-0.11) with free lambda light chainsnow relatively stable (106-109). I advised continuing her current regimen and reevaluating with kappa/lambda light chain ratio in 2 months. Continue current dosing and close observation due to platelet count 48,000. No signs or symptomsof infection. Patient is in agreement with this plan. --07/10/2022: Mojgan has no new symptoms, but continued cytopenias with 2 weeks of pomalidomide helddue to recurrent neutropenia and persistent thrombocytopenia (40-50,000). Continued uptrending lambda light chains consistent with progression of myeloma. We did discuss bone marrow biopsy, but this would not policy change clerk, therefore we will give Pomalyst (now decreasedto 2mg Thursday and only) with last dose Daratumumab tomorrow. 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 Will f/u ECHO and consent for therapy tomorrow. Plan discussed with Dr. Benavidez Malignant Hematology--recommends no dose reduction of Cytoxan, but transfusion support as needed since cytopenias may be due to progression of malignancy. --08/20/2022: Mojgan is here for cycle 2 day 1 of Carfilzomib 56mg/m2 IV weekly, Cyclophosphamide 300mg/m2 IV weekly, and Dexamethasone 20mg IV/po weekly. Tolerating well without new side effects. Stable fatigue, no bleeding. Mild improvement of platelets without active bleeding, stable WBC with ANC 1000. 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 --09/17/2022: Mojgan is here for cycle 3 of modified CYKLONE regimen. She continues to do ok with only mild fatigue, no other new complaints or s/s of infection. She is ok to treat per discussion with Dr. Marinelli despite low WBC, ANCand platelets. She will follow-up in 3 weeks [...] CBC, CMP, SPEP, VAHID, immunoglobulins, and FLC. Sheis in agreement with this plan and has no questions. 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 I previously reviewed her outpatient records from [facility], including review of notes, laboratories, and prior bone marrow biopsy 13 years ago. 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 Most recent platelet count is relatively stable at 54,000 but no clinical bleeding. She waspreviously referred to weight reduction clinic and may have slow improvement of steatohepatitis with lifestyle modification. Unless she has active bleeding or planned surgery, we will continue observation during treatment of active myelomato commence next month as noted above. --Agree with recommendation for EGD surveillance for varices (last was 09/2018--negative). This will be deferred during current COVID-19 epidemic. --Prior vitamin B12 and folic acid are normal, for known history of neuropathy. As noted above, I reviewed the negative M spike on serum protein electrophoresiswith immunofixation, but positive for Bence Murray protein on urine protein electrophoresis. Her Quantitative immunoglobulins IgG, IgA, and I gM were all within normal limits, however her serum kappa lambda light chain analysis showeda predominance of lambda light chains. --Previous labs for lupus anticoagulant with DRVVT, hexagonal phase phospholipid, anti-cardiolipin IgG and IgA, and beta 2 glycoprotein IgG and IgA were within normal limits. --Evaluated in ED November 2019 for epistaxis which resolved. Platelet count wasstable at 12/28/2019 follow-up. She continues surveillance with liver clinic at [facility] [facility] and I will continue to follow her every 6 months, sooner if newbleeding issues arise. --04/02/2020: We reviewed informed consent for Daratumumab/Velcade/Dexamethasone for active myeloma therapy. I requested prior liver biopsy results and notes from liver clinic at [facility]. Platelet count in 40,000 range but patient has had no active bleeding following infusion port placement 03/22/2020. --08/13/2020: Cycle 6 week 2 toxicity check with improved thrombocytopenia 79,000 range with no bleeding. We will continue current dosing with Velcade 0.7mg/m2 sq (now once weekly), dexamethasone 20 mg weekly, and full dose daratumumab with close follow-up of liver function and platelet counts. --09/24/2020, 01/21/2021, 03/28/2021: Platelets stable 60-70,000 with no new toxicities, started Daratumumab maintenance 10/02/2020. --04/24/2021: Platelets now down to 57,000 with rising lambda light chains. Will eval with repeat bone marrow biopsy due to nonsecretory myeloma. --05/24/2021: Bone marrow hypocellular without significant myeloma progression. Normal B12/folate stores, continue Daratumumab maintenance. --08/16/2021: Persistent thrombocytopenia in 50,000 range, consider change in therapy due to risinglambda light chains. Will check echo and review case with [place]racho at to discuss next line of therapy. --08/30/2021: Stable platelets--decision to resume weekly Daratumumab 16mg first 3 cycles and change to Revlimid 5mg daily 1-21 each 28 day cycle--titrate as tolerated --09/20/2021: Platelets have declined to 40-50,000 range without mucosal bleeding. Held Revlimid atplatelets 42,000 during sinus infection, resumed after one week off. Will follow weekly CBCs on Daratumumab/Revlimid. --12/18/2021, 01/22/2022: Platelets still in the 50,000 range without mucosal bleeding. Current dosing of daratumumab every 2 weeks and Revlimid 5 mg daily 2weeks on 2 weeks off--plan to change to pomalidomide 3 mg daily next cycle. -- 02/19/2022: Last week platelets were 48,000 and we held Revlimid. This week platelets 58,000 but continuing to hold Revlimid due to change to daratumumab 16mg/kg IV every 2 weeks with pomalidomide 3 mg daily days 1 through 21 every 28-day cycle -- 03/19/2022: Platelets were down to 41,000 and we held daratumumab as well as Pomalyst for rash asnoted above. Resume Pomalyst at 2 mg days 1 through 21 every 28 days. Continue daratumumab 16 mg/kgevery 2 weeks. -- 04/09/2022: Platelets down to 40,000. Okay to give daratumumab 16 mg/kg IV every 2 weeks but Pomalyst dose will be changed to 2 mg days 1 through 14 every 28 days. Follow-up 1 month. -- 05/07/2022: Platelets 48,000. Continue monthly daratumumab 16mg/kg IV with same Pomalyst dose 2mg daily D1-14 every 28 days. Extend next follow-up with kappa/lambda light chain ratio to 2 months. --07/10/2022: Platelets 53,000 with ANC now 600 (held Pomalyst one week for ANC 300). May have one dose Pomalyst today, then hold for change in therapy. Will have platelet transfusion as needed for change in therapy to Kyprolis/Cytoxan/Deamethasone. --08/20/2022: Platelets declined to mid 30,000 range about 4 weeks ago--now up to 56,000 and WBC 1600 and ANC 1000 on Kyprolis/Cytoxan/Deamethasone. No activebleeding. Continue current dosing and f/uin 3 weeks. --09/17/2022: Platelets at 43,000 without recent transfusion. WBC and ANC at 1.4and 600 respectively. Will continue with treatment. --10/15/2022: Platelets at 49,000. No s/s of bleeding. Ok for treatment. (3) Cancer-related pain Improved symptoms after palliative radiation to bilateral hips--one dose 02/07/2020. Will continue tofollow on myeloma chemotherapy. Extensive, but stable bone involvement on F-18 PET/CT 12/2020 and 04/2021. Recent increased leftneck and shoulder pain. Increased oxycodone dosing to three times daily, no unusual right hip pain is noted above--followed by palliative medicine. -Completed right hip radiation with persistent but improved pain--no new pain issues with follow-upvisit with radiation in early March 2022, follow-up as needed. Will continue to follow with palliative medicine. 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 [facility] weight reduction through diet and exercise that may prevent further fatty infiltration that may further impairher liver function. [facility] hepatology discussed liver transplant but sheis likely no longer a candidate for this given active myeloma. We chose least hepatotoxic regimen for treatment of her active myeloma with 50% dose reduction of Velcade. Liver function remained stable since start of therapy 04/10/2020. --Requested prior liver biopsy and [facility] liver clinic records. Dose reduction 20% Kyprolis due to KAPADIA with cirrhosis (normal bilirubin and transaminases). Stable LFTs on current Kyprolis/Cytoxan/Deamethasone therapy. (5) Encounter for chemotherapy management Initial Daratumumab maintenance tolerated well without significant toxicities. Bone marrow biopsy did not reveal indication for change in therapy. --09/04/2021: Repeat loading with weekly Daratumumab 16mg first 3 cycles and changed to Revlimid 5mgdaily 1-21 each 28 day cycle--02/19/2022 reviewed informed consent to change to pomalidomide next cycle. --03/19/2022. Pomalyst was stopped after 1 week of therapy on 03/13/2022. Daratumumab held 03/19/2022 due to platelet count 41,000. We resumed both medications on arrival of dose reduce Pomalyst 2 mg days 1 through 21 every 28- day cycle. -- 04/09/2022: Daratumumab is monthly maintenance. Mid July: last dose Pomalyst 2mg today with ANC 600. -- 07/30/2022: Changed chemo to Kyprolis/Cytoxan, normal baseline Echo. Will continue every 3 week therapy until progression or intolerable toxicity. (6) History of 2019 novel coronavirus disease (COVID-19) - Chemo Plan Chemo Plan (Dose, Rate, Freq): Palliative radiation to 02/07/2020, deferred active therapy for myeloma for 8 weeks due to current COVID-19 epidemic. Discussed at [facility] early March to determine optimal regimen given her comorbidities. --04/10/2020: cycle 1, day 1 weekly dexamethasone 20 mg IV (careful to watch bloodsugars with diabetes and known hepatic dysfunction), decreased dose of bortezomib 0.7 mg/m? twice weekly for 2 weeks on1 week off (decreased to once weekly after first cycle due to known liver disease and thrombocytopenia), and daratumumab 8mg/kg D1,D2 IV first week, then 16 mg/kg IV weekly --10/02/2020: Started Daratumumab monthly maintenance 16mg/kg IV (stopped Velcade and Dexamethasone) --Palliative radiation 07/31/2021 right hip --09/04/2021: Start weekly Daratumumab 16mg/kg first 3 cycles and change to Revlimid 5mg daily 1-21 each 28 day cycle--now 5mg daily D1-14 every 28 days--titrate as tolerated. --02/19/2022: Continue daratumumab 16 mg/kg every other week and changed Revlimidto pomalidomide 3 mg daily days 1 through 21 each 28-day cycle. --Pomalyst was stopped after 1 week of therapy on 03/13/2022. Daratumumab held 03/19/2022 due to platelet count 41,000. We will resume both medications on arrival of dose reduce Pomalyst 2 mg days 1 through 21 every 28-day cycle. -- 04/01/2022: Now has thrombocytopenia with platelet count 40,000. Proceeding with daratumumab 16 mg/kg IV every 2 weeks and will hold Pomalyst and change dosing to 2 mg days 1 through 14 every 28-day cycle for presumed medication related myelosuppression. Daratumumab to monthly dosing since early April had nochange in Pomalyst 2 mg days 1 through 14 every 28-day cycle. --07/10/2022: Held Pomalyst 2mg daily with held dosing 2 weeks due to worsening neutropenia. Today discussed change in therapy. --07/30/2022: Changed to Pomalyst (week 1 test dose 20mg/m2 IV, then 56mg/m2 IV weekly--dose reduction for liver dysfunction due to nonalcoholic steatohepatitis) with Cytoxan 300mg/m2 IV weekly, Dexamethasone 20mg weekly. Goal of Treatment: Palliative - Time with Patient Time Spent with Patient (Follow Up Visit): 35 minutes - Moderate complexity 35 min to review toxicities and cytopenias on carfilzomib/cytoxan/dexamethasone Coordination of Care & Counseling Time: Greater than 50% of time spent with patient was for coordination of care (as documented) and [id number] counseling of patient and/or family. Dictated By: Shannon Gallagher APRN DD/ [id number] Signed By: <Electronically signed by KEITH Gallagher> 10/15/22 1104 [facility] Work Phone: Progress note Author Fabiola Marinelli [facility] March 11, 2023 9:43amNote Date/TimeMay 2022 9:04[facility] [place] [address] Hem/Onc Follow Up Note - OP Signed Patient: Mojgan Pérez MR#: [id number] : 1955 Acct:[id number] Age/Sex: 67 / F Type: REG RCR Copies to: MD Yinka Downey MD Ehsan Malek, MD Katherine M McGraw, KEITH~ Subjective Date/Time of Service: Date of Service: 03/11/2023 Time of Service: 09:04 Chief Complaint: Patient is here today fora a 3 week follow up visit and go overbone marrow biopsy,pet scan, x-rays and labs HPI: 03/11/2023: Mojgan is here for follow-up of bone marrow aspiration and biopsy performed in interventional radiology on 02/24/2023 as well as follow-up F-18 PET/CT. She has continued right hip pain andsaw nurse practitioner Pearl Holder the day after her bone marrow biopsy. She started oxycodone 10 mg 4 times daily as needed with continued gabapentin 400 mg on an as-needed basis. She previously received radiation to the right hip in July-August 2021 over 15elapsed days--I am reluctant to repeat radiation to this area unless pain is refractory to oral medications. The PET/CT from 03/09/2023showed relatively patchy abnormal radiotracer accumulation in the skeletal structures that similarto prior exam consistent with her multiple myeloma but no new areas of radiotracer accumulation. The right hip uptake looks relatively stable from prior PET/CT in March 2022. The bone marrow aspirate andbiopsy showed low cellularity for age about 10% with 4% clonal plasma cells by immuno chemistry and0.7% of lambda mononuclear plasma cells on flow cytometry with a population of atypical CD10 positive B cells. She had presence of stainable iron stores 1+and no evidence of amyloid deposition. Her peripheral blood platelet count is now 28,000 and she does not have any active bleeding. She did haveextensive bruising after her bone marrow biopsy. She has not had any recent infections and received1 treatment with IVIG in early January. -- At this time I recommend holding active therapy for her myeloma given her cytopenias and plasma cells less than 10%. We will continue to follow CBC every2 weeks for her platelet count this month and if relatively stable continue CBC monthly. I will also send vitamin B12, folate, copper, ceruloplasmin, and iron panel to see if we can optimize her from a nutritional standpoint to improve herthrombocytopenia. This may also be due to her hepatic steatosis. Her next follow-up with me with myelomalabs to include quantitative immunoglobulins and kappa/lambda light chain analysis will be in 3 months or sooner as needed. Thisis a high complexity visit over 45 minutes for review of bone marrow biopsy and imaging results, discussion of continuing to hold further therapy (Kyprolis/Cytoxan last given December 2022), and plan nutritional labs with follow-up phone call with results. 02/18/2023: One month followup--still off active therapy with Kyprolis/Cytoxan past 2 1/2 months dueto persistent thrombocytopenia and initiation of IVIG for admission for urosepsis 01/28/2023. Despite off therapy, she has persistent low platelets 35,000 without bleeding. Uptrending kappa light chain to 60s. Notes recurrent right hip pain--I recommended repeating F-18 PET/CT to determine if bony progression with right hip/pelvis/femur film. Will also set up IR guided bone marrow biopsy--review results in 3 weeks and decide whether to resume active therapy. If lytic lesion at hip/acetabulum/femur concerning for potential fracture, will refer to orthopedics for possible prophylactic kenton. Mak contact from Dr. Benavidez for bispecific antibody therapy. Moderate complexity 35 minute followup. 01/09/2023: Here for followup after consult with Dr. Benavidez last week. Progress note is still pending, but we communicated by secure text regarding her evaluation. Myeloma labs are stable with mild increase of serum kappa from 40s to 60s range. Platelet count now to 68 and ANC 900 since holding Kyprol is/Cytoxan since 12/05/2022 for cytopenias. We decided to hold 2 more weeksthen resume Kyprolis at same dose 20mg/m2 and further decrease Cytoxan to 40% dose overall when we resume dose. Next line of therapy at progression may be CD3/BCMA myeloma bispecific antibody Teclistamab (needs to be hospitalized firstweek due to risk of cytokine release syndrome). Plan to resume likely in 2 weeks if adequate blood counts and no infection. F/u with myeloma labs (CBC, CMP, quant immunoglobulins and kappa/lambda light chains) in 2 months, sooner prn. Moderate complexity 30 minute followup. 12/26/2022: Mojgan continues to have nasal drainage sinus congestion and pain despite completing 2 weeks of amoxicillin and no air-fluid level on CT Sinuses 11/30/2022. We gave last dose of Kyprolis/Cytoxan (60% dose) on 12/05/2022. Peripheral neuropathy is stable, no diarrhea, no skin rashes. We reviewed her labs with ANC 900, platelets 37,000 and she notes easy bruising but no nasal/oral mucosal, GI or bleeding. I will again hold Kyprolis/Cytoxan another 2 weeks and give 2 weeks of Augmentin 875/125mg bid for her persistent sinus infection and Diflucan 100mg daily for vaginal candidiasis. Will formallyrefer back to Dr. Benavidez to see if she is a candidate for the CD3/BCMA myeloma bispecificantibody therapy which she would need to receive at [facility]. F/u with me in 2 weeks--if persistent cytopenias we may need torepeat her bone marrow biopsy (if now performed by Dr. Benavidez). She agrees with this plan over this 35 min moderate complexity followup visit. 11/26/2022: Mojgan is here for monthly followup on modified CYKLONE therapy. Notes increased frontal headaches over the past with with nasal congestion--sending for sinus CT and 2 week course of Augmentin bid. Platelet count recently dropped as low as 25-31,000 without bleeding (currently 40,000), WBC to 1300 with ANC 700. No current fever, chills or symptoms of infection. Prior dose reductions of Kyprolis to 20mg/m2 weekly with cyclophosphamide 240mg/m2 weekly). Echo with normal EF 55-60%. We will further dose reduce cyclophosphamide to 180mg/m2 (overall 40% dose reduction) and maintain Kyprolis at 20mg/m2. She has ongoing decline of lambda light chains over the past 6 months indicating response. I discussed her case with Dr. Piter Benavidez who noted therapy could be held if worsening cytopenias. For now continue monthly followup with myeloma labs (quant immunoglobulins and kappa/lambda light chains). Bleeding precautions and f/u sooner if new symptoms arise. Moderate complexity 35-minute visit for review of complex labs and adjustment of chemotherapy regimen. 10/29/2022: I asked Mojgan to return today due to cytopenias on labs and discussion of either dosereduction or changing therapy. She notes that over the last 2 weeks she has had cough, body aches, worsening fatigue, but no fever. She was diagnosed with a non-COVID viral syndrome. Her symptoms arestarting toget better but she has more significant cytopenias with absolute neutrophil count of only 400 with total white blood cell count 1000. In addition her platelet count is 31,000 she has not had any active bleeding issues. We were unable to contact her to tell her not to come in for chemo but I decided to see her today since she was last evaluated by nurse practitioner last 2 visits. Hermyeloma labs show relatively stable lambda light chains which appear to have responded since start of therapy in July. She is due for her echocardiogram and due to her cytopenias we will hold therapy today and plan 1 level dose reductions of both cyclophosphamide (from 300 to 240 mg/m2 IV weekly)with Kyprolis dose reduction (from 27 to 20mg/m2 IV weekly). She has been off therapy past 2 weeks due to cytopenias. If she is unable to resume therapy we may consider an alternate therapy such as Blenrep. She is otherwise in agreement with current plan of care. Moderate complexity 35-minute visit for review of complex labs and adjustment of chemotherapy regimen. 10/15/2022: Mojgan is here for follow-up for her multiple myeloma on modified CYKLONE therapy. Shecontinues to do well and remains active at home. She deniesshortness of breath, chest pain, nausea,vomiting, diarrhea or constipation. Sheis eating and drinking well. No fevers, chills, sweats, bleed ing or rash. She does note mild tongue soreness and on exam it appears she may be developing thrush, very mild currently on the tongue only. We will prescribe nystatin for this. Labs are reviewed andstable overall, ok for treatment. She will follow-upin 4wks with Dr. Marinelli with repeat labs and treatment. 09/17/2022: Mojgan is here for follow-up on modified CYKLONE therapy for her multiple myeloma. Shecontinues with fatigue, but otherwise no new complaints. She has no s/s of infection, no shortness of breath, chest pain, n/v/d or other concerns. In review of her labs, her WBC are 1.4, ANC 0.6 and platelets 43,000. Per Dr. Marinelli, given no s/s of infection and she otherwise feels well, she is okfor treatment. We discussed signs to report related to infection such as fever, chills, etc. and she will call with any concerns. We will follow-up in 3wks withrepeat labs. 08/20/2022: Mojgan is here for 3-week follow-up on modified CYKLONE therapy (cyclophosphamide 300 mg/m2 IV weekly, dexamethasone 20 mg IV weekly, and carfilzomib now 56 mg/m2 IV weekly). Baseline echocardiogram 07/18/2022 showed normal ejection fraction 60 to 65%. I discussed her case with Dr. Benavidez who advised that despite her significant thrombocytopenia she should be treated withfull dose cyclophosphamide/carfilzomib and may support with transfusions as needed. The patient's lowest platelet counts were in the 30,000's after her first week of therapy but now is up to 56,000. She has not hadany clinical bleeding. She also has persistent leukopenia 1900 today with absolute neutrophil countnow 1000. At this point as long as she does not have any significant symptoms of therapy or signs of infection or active bleeding we willcontinue her current dosing. She otherwise notes mild fatigue but no other toxicities. Prior skin rash on Pomalyst has resolved. She will follow-up in 3 weeks fortoxicity check with nurse practitioner and we will order her restagingmyeloma labs with serum protein electrophoresis with immunofixation, quantitative immunoglobulins, and kappa/lambda light chain ratio. She may return sooner if new issues arise. Moderate complexity follow-up over 30 minutes to address cytopenias on CYKLONE therapy. 07/10/2022: Mojgan is here for 2-month follow-up of myeloma labs. No changes in medical history and platelet count remains in the 40-50,000 range without bleeding. We held her Pomalyst (as well as daratumumab) this week due to absolute neutrophil count of 300 without any recent infections. She previously held it for 1 week due to neutropenia, took 1 tablet, then had to hold a second week due to neutropenia. We reviewed her kappa/lambda light chain ratio which continues to progress in the wrong direction (total lambda light chains now increased from 109 to 125.7 with ratio from 0.11 to 0.08). Her progressive cytopenias and worsening light chains likely reflects progression of myeloma. We could repeat her bone marrow biopsy but her most recent bone marrow biopsy on10/09/2021 showed hypercellular bone marrow (30%) with slight megakaryocytic and granulocytic hyperplasia and only 1.5% plasma cells (Lambda restricted by flow cytometry). This likely would not change her current management and I discussedher case with Dr. Benavidez of malignant hematology who recommended considering carfilzomib (Kyprolis) with cyclophosphamide. I will contact patient to coordinate baseline echocardiogram forKyprolis and likely she will require dosereductions for her underlying hepatic dysfunction and chronic cytopenias. AfterI reviewed dosing with Dr. Benavidez and pharmacy and review her echocardiogram, jayne coordinate follow-up for change in therapy and chemotherapy consent. For now we will continue daratumumab with altered dose of Pomalyst to 2 mg twice weekly ( and Mondays) until change in therapy. I will not likely send dose reduction of Pomalyst due to planned change in therapy. Moderate complexity 35 minutes for coordination of care. 05/07/2022: Improved rash on 2 mg of Pomalyst, now mild pruritus. Platelet count is 48,000 without bleeding issues. Continues weekly prednisone. Daratumumab isnow monthly since early April. Repeat kappa/lambda light chain ratio slightly higher (106 to 109) But the upward trend is starting to flatten out. F-18 Axumin PET/CT shows no new lesions, relatively stable from 1 year ago. For now given her stable symptoms and pronounced cytopenias, we will continue her current dosing daratumumab/Pomalyst/dexamethasone. Next follow-up with me in 2 months. She will return sooner for issues arise. Moderate complexity visit over 35 minutes. 04/09/2022: Mojgan continues every 2-week durvalumab with Pomalyst now 2 mg daily (dose reduced due to diffuse rash). She is now day 14 of the cycle and isnoted to have platelet count of 40,000 (no associated mucosal bleeding, bright red blood per rectum, or hematuria). No recurrent rash on this dose. She continues her weekly prednisone. I recommended changing her schedule of Pomalyst to 2 mg daily for days 1 through 14, off days 15 through 28 cycle and continuing daratumumab. Her most recent immunoglobulins have shown a steady trend upward for lambda light chain and decrease of kappa/lambda light chain ratio, however since she is now stabilizing her dosing of daratumumab/Pomalyst/dexamethasone I recommend continuing her current dosing for1 more cycle with repeat kappa/lambda light chain ratio in another month. In addition I will set her up for F-18 Axumin PET/CT to compare to PET/CT from 1 year ago (her skeletal survey showed no lesions 6 months ago). She denies any current bone pain.She will proceed with daratumumab dose as previously orderedtoday. 03/19/2022: Mojgan is here for follow-up after adverse cutaneous reaction to her first cycle of Pomalyst. She noted that after starting her first dose of Pomalyst 3 mg daily on 03/05/2022 that about 1 week later on 03/13/2022 she had a diffuse rash all over that was pruritic with increased erythema. She did not have nausea, vomiting, constipation, diarrhea, dyspnea, or any other adverse reactions. She did have a decline of platelet count to 41,000 this week which may be due to her Pomalyst. She called the pharmacy and was instructed to discontinue Pomalyst on 03/13/2022. Her rash has mostly resolved with no furtherpruritus but she still has a few macular lesions over the legs. She has been using Benadryl and topical cortisone cream with improvement of the rash. Otherwise her laboratories are stable. She does have an increased kappa/lambda light chain ratio from 03/05/2022 but this was her first day of therapy. I recommended resuming Pomalyst at next dose level 2 mg daily as soon as new medic ation arrives for 3 weeks on 1 week off. If she has recurrent rash she will again stop and we will consider further dose adjustment. Due to her thrombocytopenia we will hold her daratumumab today andconsume with first day of Pomalyst next week. She may follow-up in about 3 to 4 weeks, possibly with virologist covering at that time. Patient expressed understanding. 02/19/2022: Mojgan is here for follow-up--no new symptoms but her platelet countdropped to 48,000 last week and we are again holding her Revlimid. She has not had any bleeding or infection recently, but she has had uptrending lambda light chains and we discussed changing her therapy from lenalidomide to pomalidomide and continuing her daratumumab which is currently every other week. Her only other concern is constipation which is likely related to her pain medications. ANC was 800 today. --Today we reviewed chemotherapy counseling for lenalidomide in combination withdaratumumab/dexamethasone (stopping Revlimid). Common toxicities were reviewed to include allergic reactions, myelosuppression, thrombosis, fatigue, nausea, vomiting, constipation, diarrhea, mouth sores, and risk of secondary malignancies. Other toxicities may include pneumonitis, neurologic, hepatic andrenal toxicities. The patient signed informed consent and will follow-up as directed. Planning a trip to [place] on March 06, therefore we will hold Revlimid until arrival of her pomalidomide, then have oral chemotherapy visit. We are starting pomalidomide at 3 mg daily days 1 through 21 every 28 days due to baseline liver dysfunction. Follow-up cycle 1 week 2. We will recheck her baseline myeloma labs on start day of pomalidomide with daratumumab. 01/22/2022: Mojgan has no new complaints. She was seen by Dr. Benavidez at for evaluation for transplant and CAR-T options but given her profound thrombocytopenia, neither of these options are felt tuyet optimal for her. She has had gradual worsening of her lambda light chains without any change of r enalfunction or hypercalcemia. Her chronic thrombocytopenia has remained in the 40-50,000 range which is lower than her prior baseline. I reviewed her options with Dr. Benavidez and it is difficult to assess best options due to her chronic thrombocytopenia but standard of care at this point would be tocontinue her daratumumab and transition from the lenalidomide to pomalidomide. We will follow closely with weekly CBCs to determine if thrombocytopenia worsens on thisregimen. I will defer changing her regimen for 1 month since she is starting a new cycle of lenalidomide and has had slow progression of her lambda light chains. She will return in 1 month and will discuss pomalidomide and signed inf ormed consent. Patient is in agreement with this plan. 12/18/2021: Mojgan is here for 3-month follow-up. She has not had any significant changes in medical history other than testing positive for coronavirus infection in early November 2021. She has not been immunized for coronavirus. She notes persistent fatigue but no bone pain. No other recent infections or bleeding episodes. She recently changed from weekly to now every 2 weeks daratumumab 16 mg/kg and remains on low-dose lenalidomide 5 mg daily for2 weeks on 1 week off due to prior thrombocytopenia worsening. October 2021 skeletal survey showed no osteolytic lesions suggestive of myeloma. Initially she had improvement of her platelets to 70-100,000 but today platelets are down to 54,000. She also had some improvement of leukopenia but this is again down to 2800 with ANC 1300 today. Urinerandom M spike is not observed, but she has had progressive increase of her lambda light chains from 30 in December 2020 to 60.2 in October 2021. [place] lambda ratio has also started to decline to 0.21 in October 2021. For now I'm continuing her daratumumab with Revlimid at current dosing, but I contacted Dr. Benavidez at [facility] for CAR-T celleligibility. If he has recommendations to change her therapy, I will let her know. Otherwise I will have her follow-up with me in 1 month (she will have repeat myeloma labs 1 week prior to visit). 09/20/2021: After telephone consultation with Dr. Benavidez at , we resumed repeat loading doses of weekly daratumumab 16mg/kg and changed to low dose lenalidomide 5mg daily. She has had 2 courses of antibiotics for sinus infection over the past month and was noted to have neutropenia with ANC 900, platelets 44,000 week 2 of Revlimid, therefore this was held for one week and resumed Thursday after ANC returned to 1000. Platelet counts have persisted at 40-50,000 range without active bleeding. Otherwise tolerating therapy well. Still improved hip pain and ambulation after recent course of palliative radiation therapy. For now we will continue Daratumumab with Revlimid and Dexamethasone as ordered with weekly CBC. Gradually increasing lambda light chains--pending evaluation at for CAR-T celltherapy eligibility (has not yetbeen contacted for appointment). 4 week f/u with me with CBC, CMP, and myeloma labs (follow quant immunoglobulins and [place]/Lambda light chain ratio with skeletal survey in 2 weeks so results available for appointment). 08/30/2021: Mojgan is here for 2-week follow-up for completion of her palliative radiation therapywith significant improvement of pain in her right hip and pelvis. We sent her for echocardiogram performed 08/23/2021 at [facility] [place] as baseline for possible Kyprolis therapy. This returned with ejection fraction 60% which is normal with grade 1 left ventricular diastolic dysfunction and 1+ tricuspid valve regurgitation and trace to 1+ aortic valve regurgitation.Otherwise unremarkable. I discussed her case with Dr. Benavidez of malignant hematology at [facility]. He advised against Kyprolis therapy given her underlying liver dysfunction and recommended repeating loading doses of daratumumab weekly as well as low-dose lenalidomide which we will start at 5 mg daily since she has chronic thrombocytopenia. We will send for CAR-T therapy as a possible therapeutic option. The patient agreed with changing daratumumab to weekly and we will haveher sign consent next week for change to low-dose lenalidomide therapy. Next follow-up with me will be in about 2 weeks for week 2 lenalidomide with daratumumab. 08/16/2021: One month followup, she recently completed palliative radiation therapy to right hip and pelvis. Platelet count still in 50,000 range with increased bruising but no bleeding. Still has some pain in right hip but slowlyimproving after radiation therapy. Slowly worsening lambda light chain --she is scheduled for ECHO next week. We discussed possibly changing therapy from Daratumumab, Velcade, Dexamethasone to Kyprolis, low dose lenalidomide, dexamethasone if adequate cardiac function. I will discuss this with Dr. Benavidez for dosing and determine if CAR-T therapy is another possible option (although we may be limited due to chronic thrombocytopenia and liver disease). Followup 2-3 weeks to review results and possible consent for change in therapy. 07/17/2021: 2-month follow-up on multiple myeloma. She reports that Thursday she developed severe painin the right leg that started proximal to the knee creating it to the hip. She had increased pain with weightbearing on the right and has been using a walker at home secondary to this. She did not feel a pop or shift in ambulation, but has been using her Percocet for pain control at home. In reviewing her laboratories platelet count remains in the 52,000 range and she is otherwisPe tolerating daratumumab well. I recommended sending for right hip, femur, and knee plain film imaging that did not show any fracture. She does have a gradually rising lambda light chain but no other significant changes in her labs. I reviewed her case with Dr. Cheng of orthopedic surgery who also reviewed her prior PET/CT showing uptake in this area. We will obtain a right hip MRI, keep her completely nonweightbearing on the right leg with walker for transfers and she has an urgent orthopedic follow-up following her MRI. I will follow-up with her in 1 month to review management and we will determine if she requires prophylactic kenton for stability of the hip based on herMRI. 05/24/2021: Here to followup 05/03/2021 bone marrow biopsy--noted to have decreased cellularity 25%, flow cytometry with 0.2% plasma cells and a 1.5% monoclonal B- cell population. FISH showed 13q and 1qabnormalities but normal cytogenetics. No myelodysplasia seen. I reassured her that recent thrombocytopenia is more likely related to splenic sequestration from liver disease and not worsening myeloma. For now continue current regimen. Will alsorecheck B12, folate, and iron profile with next labs--followup in 2 months with myeloma labs, sooner prn. 04/24/2021: 1 month followup to review PET/CT. Over the past 2 days, she notes episodes of sharp left sided neck pain over sternocleidomastoid muscle and mastoid area. No radiculopathy down left upperextremity. No new side effects of Daratumumab. F18 PET/CT shows largely unchanged diffuse uptake through multiple bony sites in axial and articular skeleton. Lambda light chains risingover past 2 month and decline of platelet count to 57,000 without bleeding. MRIof thoracic spine did not show significant thoracic canal stenosis. Due to worsening neck pain with extensive uptake on F18 PET/CT--we will send for cervical MRI. Palliative medicine has increased Percocet to tid. We will repeat bone marrow biopsy due to rising lambda light chain and falling platelet count to determine if progression of myeloma noted. This will be scheduled in the next 1-2 weeks. 03/28/2021: 2 month followup for multiple myeloma. More recently notes neck andleft shoulder pain. Fatigue and constipation stable. Labs show stable anemia and thrombocytopenia. Serum M-spike now asymmetric gamma (no quantifiable spike). Slowly improving IgG to near normal. [place]/lambda light chain ratio normal with mildly increased lambda light chains. MRI of thoracic spine for evaluation of increasing left shoulder pain. For now we will continue current dosing of Daratumumab and recheck F18 PET/CT for response in late April 2021. 01/21/2021: Mojgan is accompanied by her daughter for 2 month followup--now Daratumumab maintenance. She notes persistent fatigue and recently added as needed laxatives to stool softener for management of constipation. Persistent left hand pain--correlates to an area of bone uptake on PET/CT. Overall F18 PET/CT appears stable with no new areas if FDG avidity (still extensive bone FDGuptake). We reviewed prior plain xrays of left hand from November--she agrees toevaluation by orthopedic surgery (determine if biopsy or steroid injections). M-spike and kappa/lambda light chains pending. CBC (platelets 60-70,000); CMP stable. Will followup in 2 months with exam and labs. 11/26/2020: Mojgan is accompanied by her daughter for 2 month followup--now Daratumumab maintenance. Stable leukopenia/low platelet 70,000. Notes 3 days of hematuria and mild dysuria. Sending UA and possible culture. Otherwise no new bone pain. Blood sugars stable. M-spike and kappa/lambda light chain ratiostable. Next f/u 2 months after one year f/u PET/CT to determine response to therapy. 09/24/2020: Mojgan presents (accompanied by her daughter) for cycle 8, week 2 followup [id number] mg/kg IV weekly, Dexamethasone 20mg weekly, and Velcade 0.7 mg/m? now sq once weekly for every 3-week cycle (21 days). She notes neuropathy symptoms are stable. Tolerating therapy well without fatigue. No bleeding and thrombocytopenia stable in 60-70,0000 range. On 10/02 she will be due for maintenance therapy with Daratumumab alone once per month. I will f/u with her in 2 months with myeloma labs, sooner as needed. Velcade and Dexamethasone will be stopped after 8 cycles. 08/13/2020: Mojgan is here for cycle 6, week 2 (day 14) daratumumab 16 mg/kg weekly, Velcade 0.7 mg/m? now sq once weekly for every 3-week cycle (21 days), and dexamethasone 20 mg weekly. No new symptoms--improving thrombocytopenia to 79,000 and improved leukopenia. 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 Still has improvement of M-spike, IgA normal and decreased lambda light chain and K/L ratio. We discussed that week 25 in Oct she will change to monthly daratumumab with weekly Velcade (1mg/m2) and Dexamethasone. Continue to follow every 6-8 weeks until maintenance schedule. 06/18/2020: Mojgan is here for cycle 3 week 3 (day 21) daratumumab 16 mg/kg weekly, Velcade 0.7 mg/m? now sq once weekly for every 5-week cycle (35 days), and dexamethasone 20 mg weekly. Tolerating well with stable leukopenia and thrombocytopenia. Mild increased symptoms of hand and foot neuropathy, but no limitation in activity. Now following with diabetes management clinic with variable glucosecontrol. We reviewed lower IgA (now M-spike IgG kappa after Daratumumab--previously IgA lambda). Lambda light chain has decreased from 516 to 41.3 to now 18.5 with normalization of K/L ratio. Continue followup myeloma labs in 6 weeks, visit in 8 weeks. 05/21/2020: Mojgan is here for cycle 2 (week 7 overall) daratumumab 16 mg/kg weekly, Velcade 0.7 mg/m? now sq once weekly for every 5-week cycle (35 days), and dexamethasone 20 mg weekly. Tolerating well with stable leukopenia and thrombocytopenia. No significant neuropathy. Noted to have improvement in lambda light chains. No further daratumumab infusion reactions. No infections,stable constipation, pain control improved. No other complaints. Continue monthly f/u with myeloma labs. --Diabetes management--added insulin on dexamethasone days. Hyperglycemia improving. 01/18/2020 (phone followup)--The patient's son was available by phone and her daughter was contactedin a separate phone call as patient presented unaccompanied due to COVID-19 precautions in our clinic during the current epidemic. Bone marrow biopsy results were reviewed as follows from procedure pe rformed 01/26/2020: --Bone marrow biopsy was suboptimal for evaluation. --Increased lambda light chain restricted monoclonal plasma cells (1.9% by flow cytometry, approximately 6% and aspirate count, but 50% by immunohistochemical stains [id number]). Sideroblastic iron present, negative for ring sideroblasts. Peripheral blood smear with mild red blood cell anisocytosis and polychromasia, leukopenia with absolute neutropenia (1000) and thrombocytopenia (54,000) consistent with prior baseline. Note: I discussed the results with Dr. Crook 01/26/2020. Preliminary findings were also discussed with Dr. Cummings 01/27/2020. Morphologic findings, immunohistochemical stains, flow cytometry, and ancillary studies may under represent the extent and severity of disease. The results of FISH myeloma panelwith prognostic markers and cytogenetic analysis are pending. --Given the patient's hip pain and presence of lytic lesions, she meets clinicalcriteria for activemyeloma. Given her hip pain and lytic lesions in weightbearing areas she was offered radiation therapy. She had a limited courseof hypofractionated palliative therapy to bilateral proximal femurs [address] Ahn. We discussed that given the COVID-19 epidemic and absence of othersignificant changes other than bony lesions (normal renal function, normal calcium, stable cytopenias), I would defer active therapy for myeloma for 4 to 6 weeks. Since she has significant history ofliver disease I will discuss her case with Dr. Piter Benavidez at [facility] malignant hematology for optimal regimen. The patient is not a transplant candidate given her nonalcoholic steatohepatitis and chronic thrombocytopenia but may be a candidate for either doublet therapy (Revlimid/dexamethasone) or triplet therapy with either Velcade/Revlimid/dexamethasone or daratumumab/Revlimid/dexamethasone. --02/03/2020: Mojgan presented unaccompanied for follow-up of bone marrow aspiration and biopsy performed by Dr. 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 The patient had been noting increased left hip pain over the past several months andplain films of the pelvis and bilateral femurs did show subtle lucencies in the bilateral proximal femurs corresponding to PET/CT findings but no other additional sclerotic lesions identified. No pathologic fractures were seen. --03/05/2020: Mojgan notes improvement of bilateral hip pain since radiation. No other changes in medical history in the past month--no infections, normal renal function, no hypercalcemia. Stable platelet counts without bleeding. Shewas given written literature regarding Dexamethasone, Velcade (thatwould be dose reduced to 0.7mg/m2 twice weekly), weekly Daratumumab and Revlimid, but I will defer decision of which regimen to use until discussion in malignant hematology tumor board. Also referring for infusion port placement prior to initiating therapy. Sign informed consent prior to initiating therapy. --Discussed with Dr. Benavidez who favors Daratumumab combination--will request prior liver biopsy and records from [facility] liver clinic. The patient and her son (by telephone) expressed understanding and will follow- up as directed in 2 weeks for consent and likely start of therapy. --04/02/2020: Mojgan presents after infusion port placement at [facility] by interventional radiology due to platelet count 40,000--she had increased bruising at site post procedure, but this has completely resolved. Her hip painis well controlled since completion of palliative radiation and no newareas of pain. She has previously reviewed information regarding Daratumumab (first dosesplit 8mg/kg IV D1,D2, then if well tolerated 16mg/kg IV weekly), Velcade at about 50% dose (for liver dysfunction) 0.7mg/m2 D1,D4,D8, D11, and [id number] IV weekly--repeat for every 3 week cycles 1st 3 cycles. She will take chemo class and likely start therapy within 2 weeks with toxicity visit in 3 weeks. Today we reviewed chemotherapy counseling for Daratumumab, Velcade, and Dexamethasone. Common toxicities were reviewed to include infusion reaction including rash/dyspnea/wheezing, myelosuppression, fatigue, nausea, vomiting, constipation, diarrhea, mouth sores, and alopecia. Other toxicities may in cludepneumonitis, neurologic, thromboembolism, hyperglycemia, hepatic and renal toxicities. The patient signed informed consent and will follow-up as directed. --04/19/2020: Mojgan is here for cycle 1 week 2 daratumumab 16 mg/kg weekly, Velcade 0.7 mg/m? twice weekly for first 2 weeks of every 3-week cycle, and dexamethasone 20 mg weekly. She did have an infusion reaction with first daratumumab with dyspnea and flushing but this improved after first dose and shehas not had recurrent infusion reactions. We have continued Velcade despite platelet counts in the 40,000 range without bleeding as we know that her baseline platelet counts remain in this range and she has not had any significant change from her baseline. Dexamethasone has caused hyperglycemia with blood sugars up to 400 and we are referring to diabetes management clinic. Otherwise she denies any significant nausea, emesis, fever, chills, night sweats, constipation, diarrhea, rash, mouthsores, or alopecia. She has not hadany change of baseline neuropathy. Liver function tests remain stable. She notes that her hip pain is well controlled since prior palliative radiation and she saw radiation oncology earlier this week with no new recommendations. I will send her myeloma labs including serum and urine protein electrophoresis, quantitative immunoglobulins, and serum kappa/lambda light chains in 2 weeks andfollow-up with her in 3 weeks. She may be seen sooner if new issues arise. This is a 67-year-old lady on chronic disability has a history of arthritis, diabetes mellitus, hypertension, COPD, GERD, and fibromyalgia [facility]. She states that she was followed with Dr. Kumari prior to his senior care and was told that she had an elevated protein level as well as thrombocytopenia but never had clinical bleeding. She is 4 para4 without complicationsand was never told that she was thrombocytopenic while . She is had multiple prior surgicalprocedures without any clinical bleeding. She had been recommended for a pain procedure with Dr. Wilson but he declined to do the procedure because her platelet count was less than 100,000. For this reason she received 2 platelet transfusions, with little improvement of her platelet count and her second transfusion resulted in throat tightening due to allergy to platelets . She has never beentreated with steroids and has never been told that she has immune thrombocytopenia. She has mild leukopenia with relative neutropenia, absolute neutrophil count of 400-800 and mild lymphocytosis. Hemoglobin is normal. She has not had any bright red blood per rectum or epistaxis. She has no history ofbleeding within the family however does have a mother and sister diagnosed with colon cancer, a brother diagnosed with lung cancer, and another sister diagnosedwith breast cancer. She had prior pain in the right hand mainly at the first MCP joint with some associated swelling and right foot pain and was evaluated by podiatry. She was told that her blood tests were negative forgout. She had screening with MALLORY, CCP, and rheumatoid factor all of which were negative. She says that she previously saw Dr. Petersen for cirrhosis but did not know of any specific therapy. We reviewed these findings from her liver ultrasound ordered by Dr. Benavidez Summer 2016. Initial consultation with me March 16, 2017. --The patient has been followed by me for some time for diagnosis of smoldering myeloma with a prior bone marrow biopsy May 2017 showing 15% plasma cells but the patient remained asymptomatic without bone pain or other CRAB criteria for therapy. She is also noted to have an ascending aortic aneurysm and has chronicliver disease with cirrhosis secondary to nonalcoholic steatohepatitis. She haschronic thrombocytopenia without bleeding ranging from 50-100,000 this is felt to be due to sequestration from her nonalcoholic steatohepatitis. She was previously on a liver transplant list but was recently notified that she is no longer a candidate for liver transplant. She has had chronic pain from f ibromyalgia but noted increasing bilateral hip and upper thigh pain over the last 6 months. She also is followed for EGD/colonoscopy with last documented procedure 09/21/2018: 1. Normal EGD, 2. Mild sigmoid diverticulosis, 3. Internal hemorrhoids, grade 2, 4. Anal fissure with active bleeding cauterized by bipolar cautery Bone osseous survey in June 2019 showed osteopenia and degenerative changes but no lytic or blastic lesion. Patient had an F-18 PET scan 01/02/2020 which showed multiple areas of involvementof bones with increased SUV activity. She was contacted with these results by phone and I recommended bone marrow aspirate and biopsy for assessment and analysis. Her prior labs were reviewed. Her SPEP does not show anymonoclonal gammopathy. On VAHID there appears to be a trace of monoclonal gammopathy. Free light chain ratio is less than 100. There is no evidence of renal sufficiency. Patient is not anemic. She doeshave some abnormal areas on bone scan. - Summary of Therapies Summary of Therapies: 1. 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 2. She underwent a single dose of palliative radiation therapy to bilateral hips, receiving 800 cGyto right and left hip in 1 fraction in separate vaz (with a single isocenter). The treatments were given with AP/PA vaz MV photons and MLC blocks. 3. Deferred active therapy for myeloma 2 months given COVID-19 epidemic with increased risk of myelosuppression and viral transmission of contacts. --Follow-up 03/05/2020 I discussed her case with Dr. Piter Benavidez at malignant hematology. --Given her significant hepatic dysfunction, I presented her case at malignant hematology tumor board to discuss optimal therapy. 4. Cycle 1 day 1 04/10/2020: Dose reduced Velcade 0.7 mg/m? twice weekly (day 1,day 4, day 8, day 11)every 3 weeks with dexamethasone 20 mg weekly and daratumumab 16 mg/kg weekly of each 21-day cycle.After first week, Velcade decreased to 0.7mg sq weekly due to thrombocytopenia. --We will need to watch liver function, platelet count, and neuropathy closely on Velcade. 5. Cycle 9 day 1 10/02/2020: Daratumumab 16mg/kg once monthly maintenance therapy until progression. 6. 07/31/2021: Palliative radiation therapy to right supra chondral/soft tissuearea of hip which is PET positive. She received a dose of 3000 cGy in 10 fractions from 07/31/2021 to 08/15/2021 over 15 elapsed days 7. 08/30/2021: Right hip pain improved after radiation. Due to disease progression with persistent cytopenias, changed to repeat loading doses of daratumumab 16 mg/kg weekly for cycles 1 through 3 with Revlimid 5 mg daily for 3 weeks on 1 week off. Held Revlimid second week due to neutropenia with sinus infection, resumed 3 days ago (09/17/2021). Referred for CAR-T therapy evaluation. 8. 12/18/2021: Daratumumab is now 16 mg/kg every 2 weeks with Revlimid 5 mg daily for 2 weeks on 2 weeks off due to neutropenia and thrombocytopenia. Stillpending evaluation for CAR-T therapy. 9. 01/22/2022: Patient is not deemed a candidate for stem cell transplant or CAR- T therapy at this time. Discussed changing from current Revlimid to pomalidomide with continued daratumumab 16 mg/kg every 2 weeks. Plan change in therapy in 1 month. 10. 02/19/2022: Continue daratumumab 16 mg/kg IV every 2 weeks and changed to pomalidomide now 3 mg daily days 1 through 21 of each 28-day cycle (lower dose due to baseline liver dysfunction) -- 03/19/2022: Patient was noted to tolerate Pomalyst only 1 week (03/05- 03/13/2022)due to grade 3 rash. This resolved after stopping medication 1 week later. 1 dose level reduction Pomalyst to 2 mg daily days 1 through 21 of each 28-day cycle. Also holding daratumumab daily for platelet count of 41,000 and will resume at full dose with first dose of Pomalyst. -- 04/09/2022: Platelet 40,000 without bleeding. Will continue monthly Daratumumab with change of Pomalyst to 2mg D1-14 each 28 day cycle (off 2 weeks due to low platelets). Rising lambda light chains,unable to tolerate Pomalyst due to cytopenias, stopped mid 07/2022. 11. 07/18/2022: carfilzomib (dose 20mg/m2 day one then 27mg/m2 D8, D15) with cyclophosphamide 300mg IV weekly and weekly dexamethasone. Baseline echocardiogram EF 60-65%. We will follow closely for her chronic cytopenias andliver dysfunction. -- 10/29/2022: Regimen on hold for past 2 weeks due to cytopenias. Today with ANC 400, holding another week and will reduce dose of carfilzomib to 20mg/m2 IV weekly with cyclophosphamide 300-->240mg/m2 IV weekly, continue weekly dexamethasone. -- 11/26/2022: ANC 700, Platelets 40,000. Continue carfilzomib 20mg/m2 IV weekly with cyclophosphamide 300-->240-->180mg/m2 IV weekly, continue weekly dexamethasone. -- Carfilzomib/cyclophosphamide on hold since 12/04/2022 due to cytopenias, pending evaluation by for bispecific antibody therapy. --01/09/2023: Improving cytopenias ANC 900, platelets 68,000. --02/18/2023: Still on hold since 12/04/2022 (if resumed will give carfilzomib 20mg/m2 IV weekly with cyclophosphamide 300-->120mg/m2 IV weekly. 02/24/2023 bone marrow with 4% plasma cells, hypocellular 10%. Continue to hold active therapy for myeloma. ROS Details: All systems reviewed & no additional complaints except as documented Subjective/ROS - Narrative: No change in review of systems from last visit 02/18/2023. Constitutional: No Chills, No Diaphoresis, Stable Fatigue, No Fever, No Malaise, No Night Sweats, No Weakness, No Weight Gain, No Weight Loss Gastrointestinal: No Abdominal Pain, No Black Stool, No Bloating, No Bloody Stool, positive for constipation, No Diarrhea, No Dysphagia, No Hematemesis, No Nausea, No Postprandial Pain, No Rectal Bleeding, No Rectal Pain, No Vomiting, Other (chronic gastroesophageal reflux stable) --No jaundice or ascites but patient has longstanding nonalcoholic steatohepatitis with cirrhosis, previously followed by [facility] gastroenterology. Cardiovascular: No Chest Pain, No Edema, No Palpitations, No Syncope Genitourinary: No Discharge, No Dysuria, No Flank Pain, Frequency (chronic andunchanged), Resolved Hematuria, No Incontinence, No Nocturia, No Urgency, No Urinary Retention Musculoskeletal: + left shoulder and neck pain as per HPI (no thoracic cord compression). Recent worsening right hip/thigh pain; positive for intermittent lumbar back pain, No Chest Wall Tenderness, Improvement of prior Joint Pain, Muscle Stiffness, Myalgia (history of fibromyalgia), --unremarkable skeletal survey June 2019. 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 12/2020: F-18 PET/CT stable. 04/2021 F-18 PET/CT stable. Right hip pain mildly improved after palliative radiation. 04/30/2022 repeat Axumin F-18 PET/CT stablefrom 1 year ago. HEENT: + frontal headache and sinus tenderness/congestion--improved. No Blurred Vision, No Discharge, No Ear Pain, No Epistaxis, No Sore Throat --patient was seen in emergency department November 2019 with persistent epistaxis. She was treated with nasal clip and packing and was advised to continue Afrin. No recurrent bleeding. 2 courses of antibiotics in Aug-Sep 2021 forrecurrent sinusitis. 11/30/2022: Polyp only on CT (no air-fluid level). 12/26/22: Augmentin 2 week course and hold chemo. Respiratory: No Cough, No Hemoptysis, mild Shortness of Breath (chronic and unchanged due to COPD),No Sputum, No Wheezing--shortness of breath with daratumumab reaction dose 1 04/10/2020 (given a split dose over 2 days). No recurrent reaction since first dose. Neurological: No Dizziness, Stable Numbness/Tingling (reports long-standing bilateral foot numbness--unchanged since starting low-dose Velcade 04/10/2020), NoPre-existing Deficit (no history of stroke or seizure), intermittent headache Hematologic/Lymphatic: No significant bleeding thrombocytopenia from sequestration/myeloma disease,Bruises Easily, No Enlarged Lymph Nodes, Other (reports allergy to prior platelet transfusion) Endocrine: Excessive Sweating (hot flashes, postmenopausal) Flushing, No Intolerance to Cold, Intolerance to Heat Psychiatric: No Depressed Mood, No Insomnia Integumentary: No Jaundice, No Lesions, positive for diffuse rash on Pomalyst 3mg daily as per HPI.1 level dose reduction to 2 mg daily with only mild rash/pruritus. Due to cytopenias Pomalyst is reduced to 2 mg twice weekly on Mondays and . Stopped Pomalyst in Jul 2022--no recurrent rash. Allergic/Immunology: Previous pruritus with Pomalyst rash resolved off Pomalyst. PMF - History Attestation statement: The following information was validated with the patient. Source: Old Records Reviewed - Medical History Medical History: Medical History (Last Reviewed 03/11/23 @ 09:32 by Fabiola Marinelli MD) Aortic aneurysm COPD (chronic obstructive pulmonary disease) Diabetes Fibromyalgia GERD (gastroesophageal reflux disease) Hypertension Iron deficiency Multiple myeloma Neutropenia Smoldering multiple myeloma (SMM) Smoldering myeloma Temporary low platelet count - Surgical History Surgical History: Surgical History (Last Reviewed 03/11/23 @ 09:32 by Fabiola Marinelli MD) H/O: hysterectomy History of appendectomy History of cholecystectomy - Family History Family History: Family History (Last Reviewed 03/11/23 @ 09:32 by Fabiola Marinelli MD) Other COPD (chronic obstructive pulmonary disease) - Social History Smoking Status: Former smoker Tobacco Type: cigarettes Substance Use Type: None Social History Comments: Lives with son a grandaughter Home Medications & Allergies Allergies diclofenac [From Voltaren] Allergy (Verified 03/11/23 08:56) Hives doxycycline [From Vibramycin] Allergy (Verified 03/11/23 08:56) Hives erythromycin base [From E-Mycin] Allergy (Verified 03/11/23 08:56) Hives latex Allergy (Verified 03/11/23 08:56) Unknown Reaction moxifloxacin [From Avelox] Allergy (Verified 03/11/23 08:56) Hives Quinolones Allergy (Verified 03/11/23 08:56) Unknown Reaction tetracycline Allergy (Verified 03/11/23 08:56) Unknown Reaction Home Medications carvedilol 12.5 mg tablet 12.5 mg PO BID 11/20/17 [History Confirmed 03/11/23] duloxetine 60 mg capsule,delayed release 60 mg PO DAILY 11/20/17 [History Confirmed 03/11/23] insulin detemir U-100 100 unit/mL (3 mL) subcutaneous pen 22 units subcut DAILY PRN Hyperglycemia 11/20/17 [History Confirmed 03/11/23] oxycodone 10 mg tablet 10 mg PO BID PRN Pain 11/20/17 [History Confirmed 03/11/23] albuterol sulfate 90 mcg/actuation aerosol inhaler 2 puff inhalation Q6H PRN Shortness Of Breath 11/24/17 [History Confirmed 03/11/23] omeprazole magnesium 20 mg tablet,delayed release (Prilosec OTC) 40 mg PO DAILY 11/24/17 [History Confirmed 03/11/23] metformin 500 mg tablet,extended release 24 hr 500 mg PO BID 03/05/20 [History Confirmed 03/11/23] semaglutide 0.25 mg or 0.5 mg (2 mg/1.5 mL) subcutaneous pen injector (Ozempic) 1 mg subcut QWEEK 09/24/20 [History Confirmed 03/11/23] vitamin B12 0.5 mg-folic acid 1 mg tablet 1 tab PO DAILY 03/28/21 [History Confirmed 03/11/23] lactulose 20 gram/30 mL oral solution 20 g (30 mL) PO BID PRN Constipation #600 mL 04/09/22 [Rx Confirmed 03/11/23] acyclovir 400 mg tablet 400 mg PO BID 90 days #180 tabs 09/24/22 [Rx Confirmed 03/11/23] potassium chloride 10 mEq capsule,extended release 10 meq PO DAILY #30 caps 11/18/22 [Rx Confirmed 03/11/23] loratadine 10 mg tablet (Claritin) 10 mg PO DAILY 12/26/22 [History Confirmed 03/11/23] atorvastatin 80 mg tablet 80 mg PO DAILY 01/28/23 [History Confirmed 03/11/23] cyanocobalamin (vitamin B-12) 1,000 mcg sublingual tablet 1,000 mcg sublingual DAILY 01/28/23 [History Confirmed 03/11/23] dexamethasone 4 mg tablet 20 mg PO DIRECTED PRN Systemic Signs And Symptoms 01/28/23 [History Confirmed 03/11/23] fluticasone propionate 50 mcg/actuation nasal spray,suspension 1 spray intranasal DAILY PRN AllergySymptoms 01/28/23 [History Confirmed 03/11/23] insulin aspart U-100 100 unit/mL (3 mL) subcutaneous pen (Novolog FlexPen U-100 Insulin aspart) 25 unit subcut DAILY PRN Hyperglycemia 01/28/23 [History Confirmed 03/11/23] lisinopril 5 mg tablet 5 mg PO DAILY 01/28/23 [History Confirmed 03/11/23] ondansetron 8 mg disintegrating tablet 8 mg PO TID PRN Nausea #30 tabs 02/10/23 [Rx Confirmed 03/11/23] gabapentin 400 mg capsule 400 mg PO TID pain 02/24/23 [History Confirmed 03/11/23] Objective - Height/Weight Height/Weight: Height 5 ft 2.99 in Weight 82.554 kg BSA for Today's Weight 1.93 - Vital Signs Vital Signs: 03/11/23 08:56 Temperature 97.0 F L Pulse Rate [Left Brachial] 80 Respiratory Rate 16 Blood Pressure [Right Arm] 130/84 02 Sat by Pulse Oximetry 98 Oxygen Delivery Method Room Air - Pain Generalized Pain Intensity: 3 Bilateral Hip Pain Intensity: 5 Left Hip Pain Intensity: 4 Lower Back Pain Intensity: 7 Left Neck Pain Intensity: 4 Back Pain Intensity: 0 Right Thigh Pain Intensity: 3 Bilateral Leg Pain Intensity: 5 Generalized Head Pain Intensity: 4 Bilateral Shoulder Pain Intensity: 6 Left index finger Pain Intensity: 4 - Distress Screening Distress Screen Results: RN Distress Screening Start: 02/07/20 10:17 Freq: Status: Complete Protocol: Document 05/01/20 09:33 DB (Rec: 05/01/20 09:33 DB [id number]) Distress Screening Distress Score: 0 No worry/distress Distress Screening Total 0 RN Distress Screening Start: 07/26/21 12:37 Freq: Status: Active Protocol: Document 02/18/23 10:19 LB (Rec: 02/18/23 10:20 LB [id number]) Distress Screening Distress Score: 8 Physical Concerns Pain,Trouble Sleeping Emotional Concerns How my body looks,Feeling uncertain about the future Comments defer to patient navigator Distress Screening Total 8 Distress score of 4 or more discussed No with patient? Physical Exam Narrative: Patient is alert and oriented x3. HEAD / FACE: Normocephalic. No tenderness to palpation over scalp, no sinus tenderness to palpation. EYES: Pupils are equal and reactive to light. Conjunctivae and lids are benign in appearance. Ocular movement intact. EARS: Hearing grossly intact. NEUROLOGICAL: Alert and oriented. Cranial nerves intact. No gross motor or sensory deficits, patient ambulates unassisted. PSYCHIATRIC: No anxiety or evidence of depression. Full exam deferred, see last exam from 02/18/2023. NOSE / MOUTH / THROAT: No frontal/maxillary sinus tenderness. No oral thrush oraphthous ulcerations. NECK / THYROID: No cervical adenopathy on exam. Thyroid is symmetrical, withoutthyromegaly, masses or palpable nodules. RESPIRATORY: Normal inspection. Lungs clear to auscultation and percussion. No wheezing, rales, rhonchi or rubs. Normal effort. CARDIOVASCULAR: Regular rate and rhythm. No murmurs, gallops, or rubs. ABDOMEN: Bowel sounds normoactive. Soft, nontender and non-distended. No hepatosplenomegaly. No masses. INTEGUMENTARY: The skin is unremarkable. No suspicious lesions or rash. No bruising or petechiae noted. MUSCULOSKELETAL: Normal musculature, normal ROM upper and lower extremities, no crepitus. EXTREMITIES: No leg edema. No cyanosis or clubbing. - ECOG Performance Status ECOG Score: 2 Results - Labs Labs: Diagram of Most Recent CBC and CMP 03/09/23 12:25 03/09/23 12:25 Labs - Last 7 Days 03/09/23 12:25: IgG 596, IgA 26 L, IgM 27, Free [place] LC, Quant 9.6, Free LambdaLC, Quant 128.9 H, Free [place]/Lambda Ratio 0.07 L 03/09/23 12:25: PHA Creatinine Clear 69.82, Sodium 142, Potassium 3.7, Chloride 105, Carbon [id number], Anion Gap 12.9, BUN 17, Creatinine 0.54 L, Est GFR (CKD-EPI) > 60.0, Glucose 100, Calcium 8.7, Total Bilirubin 1.3 H, AST 25, ALT 23, Alkaline Phosphatase 89, Total Protein 5.2 L, Albumin 3.6, Globulin 1.6, Albumin/Globulin Ratio 2.3 03/09/23 12:25: Corrected WBC 2.4 L, Uncorrected WBC Count 2.4 L, RBC 3.35 L, Hgb 11.1 L, Hct 33.1 L, MCV 98.8, MCH 33.0, MCHC 33.4, RDW 15.4 H, Plt Count 28 L*, MPV 8.3, Neut % (Auto) 56.5, Lymph % (Auto) 30.2, Hodgeman % (Auto) 11.1, Eos % (Auto) 2.1, Baso % (Auto) 0.1, Nucleat RBC Rel Count 0.0, Neut # (Auto) 1.4 L, Lymph # (Auto) 0.7 L, [place]eman # (Auto) 0.3, Eos # (Auto) 0.1, Baso # (Auto) 0.0, Platelet Estimate Decreased, Large Platelets Slight, Plt Morphology Comment N/A,RBC Morphology N/A, Polychromasia Slight, Anisocytosis Slight, Tear Drop Cells Slight - Impressions PET f-18 bone subq (nopr) 03/09/2023 12:42 PM SIGNS AND SYMPTOMS: History of multiple myeloma PROTOCOL: PET images were obtained after intravenous radiotracer administration from the top of theskull through the feet. Low-dose CT of the same anatomy was performed. After attenuation correctionof PET imaging, fused PET CT images weregenerated and reconstructed in axial, sagittal, and coronalplanes. COMPARISON: 03/30/2022 RADIOPHARMACEUTICAL: 10.31 mCi of intravenous fluorine 18 sodium fluoride FINDINGS: There is diffuse abnormal increased radiotracer accumulation throughout the calvarium, spine, sternum, clavicles, shoulders, distal humerus, proximal radiusand ulna, pelvis, femurs, left tibia, and bilateral [...] prior exam and consistent with diffuse marrow infiltrativeprocess/history of multiple myeloma. No new areas of abnormal radiotracer accumulation are appreciated. Impression dictated by: Juan J Frazier M.D.03/09/2023 3:22 PM Assessment and Plan - TNM Staging Staging: Stage IIIA Multiple Myeloma (Durie Boring criteria) (1) Multiple myeloma Qualifiers: Multiple myeloma remission status: not in remission Qualified Code(s): C90.00 - Multiple myeloma not having achieved remission Mojgan 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 She has high risk cytogenetics and I [facility] Her persistent thrombocytopenia made her ineligible for any clinical trials, and preventedher from receiving local pain procedures given her chronic low back pain. --05/2017 PET/CT images and reports performed for staging to exclude bone involvement with myeloma. 2 indeterminate areas of uptake thought to be degenerative arthritis vs early bone findings of myeloma (right parietooccipitalarea and upper sternum). She has remained asymptomatic [...] showed no lytic lesions and she has stableshoulder, hand, and right SI joint pain (although likely due to fibromyalgia. --Prior osseous survey 07/01/2019 showed osteopenia but no compression fractures or lytic lesions were identified. She had no significant change in myeloma labs(mild increase of urine M-spike, kappa/lambda ratio, and normal serum M- spike and quant immunoglobulins). Urine protein still undetectable, therefore will continue surveillance every 6 months with the same labs--no hypercalcemia, renaldysfunction (or proteinuria), anemia, or new bone symptoms. --Due to COVID- epidemic, her 6-month follow-up was performed by [...] 1) on 02/07/2020 to minimize exposures during COVID- epidemic. --The patient's myeloma labs (December 2019) do show normal quantitative immunoglobulins with IgA lambda monoclonal protein by immunofixation (serum IgA is 272). Her kappa/lambda ratio shows a predominance of free lambda 479 with elevated free kappa 23.6 and abnormal free kappa/lambda ratio of 0.05. Urine immunofixation also shows lambda type Bence-Murray proteins with urine M spike 43.1 but totalprotein 34.4, with no reported urine creatinine. --We deferred immunosuppressive chemotherapy for about 1 month due to control ofsymptoms after palliative radiation and concern of potential peak of COVID-19 inlate January early March. --She presented for follow-up 03/05/2020 and we discussed potential therapy options (with son available by phone). --I discussed her case with Dr. Piter Benavidez of malignant hematology, possibly presenting the patient in hematology tumor board at [facility]. --Infusion port placed 03/22/2020 at [facility] due to low platelets. No complications. --03/12/2020: Myeloma labs with no serum M-spike, + urine M spike 22.2mg/24h (14%). Immunofixation IgA lambda specificity. IgA normal 227, Serum kappa 20.6, serum lambda 516.7, Free kappa/lambda ratio0.04. Normal renal function and calcium. Lower ANC 600 and platelets 40,000 --04/10/2020: Started cycle 1 day 1 of weekly dexamethasone 20 mg IV (careful to watch blood sugars with diabetes and known hepatic dysfunction), decreased dose of bortezomib 0.7 mg/m? twice weekly for2 weeks on 1 week off (due to known liver disease and thrombocytopenia), and daratumumab 8mg/kg D1,D2 IV first week,then 16 mg/kg IV weekly and we may consider Revlimid as a 4th medication if needed (deferred for worsening neutropenia and thrombocytopenia--I am reluctant to add this therapy initially). --------- --01/21/2021: One year f/u F18 PET/CT with stable FDG avidity, monoclonal labs (SPEP, Quant Igs, kappa/lambda ratio) all pending. Stable CBC and CMP. Persistent pain left hand 2nd MCP joint--increaseduptake on PET/CT but no lesion on left hand xray from 11/2020. Sending for ortho evaluation. For nowcontinue once monthly Daratumumab. F/u with myeloma labs and exam in 2 months, sooner prn. --05/24/2021: Bone marrow biopsy does not show significant progression although poor prognosis mutation 1q with 13q on FISH. Hypocellular with recent worseningplatelets without bleeding--will recheck B12, folate, and ferritin. [...] sent for plain films of the hip femurand knee showing degenerative changes but no acute [...] progression although she still has slow rise inlambda light chain and platelet count remains in [...] toxicity check. She will sign Revlimid consent Jami. Sheis in agreement with this plan. --09/20/2021: Started daratumumab loading doses weekly with Revlimid on 09/04/2021. Held therapy forANC 900 and platelet 42,000 with sinus infection, now resolved and resumed Revlimid 5mg daily on 09/17. Will continue therapy as prescribed with weekly CBC and hold Revlimid as needed for cytopenias.Evaluation for CAR[facility]T therapy at [facility]. Send myeloma labs and skeletal survey [...] current cycle of Revlimid with change to pomalidomide4 mg daily, follow weekly CBCs after change in therapy and determine optimal dose based on symptomsand cytopenias. Patient is in agreement with this plan. Next follow-up with me in 1 month and we will defer next light chain analysis until 1 month after change in therapy. --02/19/2022: Continued rise in lambda light chains and worsening thrombocytopenia. Today we reviewed informed consent for adding pomalidomide 3 mg daily days 1 through 21 every 28 cycle 2 every otherweek daratumumab. We are dropping Revlimid due to [...] initial cycle was only given 03/05-03/13/2022. Now yamile has complete resolution of symptoms she may resume pomalidomide at 1 dose level reduction 2 mg daily for days 1 through 21 of each 28-day cycle. We are also holding her daratumumab today due to declining her platelet count 41,000 without bleeding. Repeat kappa/lambda light chain ratio was increased 80 on 5 4but this was her first dose of pomalidomide. Plan anticipate arrival of pomalidomide within the next 1 to 2 weeks and she may resume daratumumab on day1 of therapy. Her next follow-up will be [...] for following myeloma show normal mild increase herfree lambda from 87 to 106, kappa/lambda ratio decreased 0.10-0.09. I will give her 1 more month ofpomalidomide with daratumumab and dexamethasone. The pomalidomide dose will be changed to 2 mg p.o.days 1 through 14, off days 15 through [...] bony lesions. Her kappa/lambda light chain ratio remainsrelatively stable since early March (0.09-0.11) with free lambda light chainsnow relatively stable (106-109). I advised continuing her current regimen and reevaluating with kappa/lambda light chain ratio in 2 months. Continue current dosing and close observation due to platelet count 48,000. No signs or symptomsof infection. Patient is in agreement with this plan. --07/10/2022: Mojgan has no new symptoms, but continued cytopenias with 2 weeks of pomalidomide helddue to recurrent neutropenia and persistent thrombocytopenia (40-50,000). Continued uptrending lambda light chains consistent with progression of myeloma. We did discuss bone marrow biopsy, but this would not policy change clerk, therefore we will give Pomalyst (now decreasedto 2mg Thursday and only) with last dose Daratumumab tomorrow. 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 --09/17/2022: Mojgan is here for cycle 3 of modified CYKLONE regimen. She continues to do ok with only mild fatigue, no other new complaints or s/s of infection. She is ok to treat per discussion with Dr. Marinelli despite low WBC, ANCand platelets. She will follow-up in 3 weeks [...] CBC, CMP, SPEP, VAHID, immunoglobulins, and FLC. Sheis in agreement with this plan and has no questions. --10/29/2022: Stable symptoms on current therapy. Recent viral infection with worsening cytopenias.She has been off weekly therapy for the last 2 weeks due to cytopenias, therefore we will hold 1 further week and if her blood counts meet parameters, she will have dose reduced Carfilzomib 27-->20mg/m2 IV weekly, Cyclophosphamide 300-->240mg/m2 IV weekly, and Dexamethasone 20mg IV/po weekly. She is overdue for echo which was ordered today and we will check results beforeresuming therapy. Next follow-up with me in 6 weeks or sooner as needed. [place]/lambda light chains were reviewed and doshow partial response over the last 3 months. We will continue to follow at least every 2 to 3 months while ontherapy. . No longer a candidate for Blenrep--access removed by FDA for limitedefficacy. Moderate complexity 35 minute followup visit. --11/26/2022: No new symptoms with ongoing response of lambda light chains but persistent cytopenias. In absence of new symptoms of infection or bleeding, we will continue therapy with further dose reduction of cyclophosphamide to 180mg/m2 IV weekly with stable dose Kyprolis 20mg/m2 IV weekly and Dex amethasone. Discussed with Dr. Benavidez at --he would support holding therapy and observationif persistent cytopenias and consider bone marrow biopsy. For now will continuemonthly followup and myelomalabs every 1-2 months. She may be a [...] persistent cytopenias and sinusitis. She now has [id number] and platelets 37,000 without bleeding. Relatively stable lambda light chains in 40s range. I will hold therapy another 2 weeks, give Augmentin 875mg bid x 2 weeks for persistent sinusitis (no airfluid levels on CT scan), and send referral to Dr. Benavidez for possible CD3/BCMA bispecific antibody therapy (risk of cytokine release syndromewith first dose, requires inpatient observation at a [...] first week due to risk of cytokine releasesyndrome). Nextfollowup with myeloma labs in 2 months, sooner prn. 30 minute moderate complexity followup. --02/18/2023: No active therapy since 12/04/2022--platelets have not improved. Continued uptrending kappa light chains (now 60s range). 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 Worsening right hip/leg pain--repeat PET/CT to determine if bony progression (plain film without obviouslytic lesion right hip/femur). Will set up IR guided bone marrow biopsy to evalwhether persistent cytopenias due to progression vs. therapy related MDS. Hold Kyprolis/Cytoxan and if no progression or MDS on bone marrow biopsy, we will resume lower dose Cyclophosphamide 120mg/m2 IV weekly,Kyprolis 20mg/m2 IV weekly, and Dexamethasone 20mg weekly. [...] cells in addition to a 12% atypical clonalB-cell population on flow cytometry. Given her hypocellularity and low percentage of plasma cells despite increasing lambda light chains onperipheral blood, we will continue to hold her [...] CBC monthly and follow-up with her in 3months with CBC, CMP, quantitative immunoglobulins and kappa/lambda light chains. She may return sooner if new issues arise. High complexity 45-minute visit for review of bone marrow biopsy, imaging,complex medical testing, discussion of plan. (2) Bone marrow hypocellularity Hypocellular for age with 10% cellularity. Nutritional work-up as noted above. We will contact her with results and replete deficiencies as needed. We will try to defer repeat bone marrow biopsies aslong as we can given her light chainmyeloma. 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 I previously reviewed her outpatient records from [facility] [place], including review of notes, laboratories, and prior bone marrow biopsy 13 years ago. 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 Most recent platelet count is relatively stable at 54,000 but no clinical bleeding. She waspreviously referred to weight reduction clinic and may have slow improvement of steatohepatitis with lifestyle modification. Unless she has active bleeding or planned surgery, we will continue observation during treatment of active myelomato commence next month as noted above. --Agree with recommendation for EGD surveillance for varices (last was 09/2018--negative). This will be deferred during current COVID-19 epidemic. --Prior vitamin B12 and folic acid are normal, for known history of neuropathy. As noted above, I reviewed the negative M spike on serum protein electrophoresiswith immunofixation, but positive for Bence Murray protein on urine protein electrophoresis. Her Quantitative immunoglobulins IgG, IgA, and I gM were all within normal limits, however her serum kappa lambda light chain analysis showeda predominance of lambda light chains. --Previous labs for lupus anticoagulant with DRVVT, hexagonal phase phospholipid, anti-cardiolipin IgG and IgA, and beta 2 glycoprotein IgG and IgA were within normal limits. --Evaluated in ED November 2019 for epistaxis which resolved. Platelet count wasstable at 12/28/2019 follow-up. She continues surveillance with liver clinic at [facility] and I will continue to follow her every 6 months, sooner if newbleeding issues arise. --04/02/2020: We reviewed informed consent for Daratumumab/Velcade/Dexamethasone for active myeloma therapy. I requested prior liver biopsy results and notes from liver clinic at [facility]. Platelet count in 40,000 range but patient has had no active bleeding following infusion port placement 03/22/2020. --08/13/2020: Cycle 6 week 2 toxicity check with improved thrombocytopenia 79,000 range with no bleeding. We will continue current dosing with Velcade 0.7mg/m2 sq (now once weekly), dexamethasone 20 mg weekly, and full dose daratumumab with close follow-up of liver function and platelet counts. --09/24/2020, 01/21/2021, 03/28/2021: Platelets stable 60-70,000 with no new toxicities, started Daratumumab maintenance 10/02/2020. --04/24/2021: Platelets now down to 57,000 with rising lambda light chains. Will eval with repeat bone marrow biopsy due to nonsecretory myeloma. --05/24/2021: Bone marrow hypocellular without significant myeloma progression. Normal B12/folate stores, continue Daratumumab maintenance. --08/16/2021: Persistent thrombocytopenia in 50,000 range, consider change in therapy due to risinglambda light chains. Will check echo and review case withDr. Benavidez at to discuss next line of therapy. --08/30/2021: Stable platelets--decision to resume weekly Daratumumab 16mg first 3 cycles and change to Revlimid 5mg daily 1-21 each 28 day cycle--titrate as tolerated --09/20/2021: Platelets have declined to 40-50,000 range without mucosal bleeding. Held Revlimid atplatelets 42,000 during sinus infection, resumed after one week off. Will follow weekly CBCs on Daratumumab/Revlimid. --12/18/2021, 01/22/2022: Platelets still in the 50,000 range without mucosal bleeding. Current dosing of daratumumab every 2 weeks and Revlimid 5 mg daily 2weeks on 2 weeks off--plan to change to pomalidomide 3 mg daily next cycle. -- 02/19/2022: Last week platelets were 48,000 and we held Revlimid. This week platelets 58,000 but continuing to hold Revlimid due to change to daratumumab 16mg/kg IV every 2 weeks with pomalidomide 3 mg daily days 1 through 21 every 28-day cycle -- 03/19/2022: Platelets were down to 41,000 and we held daratumumab as well as Pomalyst for rash asnoted above. Resume Pomalyst at 2 mg days 1 through 21 every 28 days. Continue daratumumab 16 mg/kgevery 2 weeks. -- 04/09/2022: Platelets down to 40,000. Okay to give daratumumab 16 mg/kg IV every 2 weeks but Pomalyst dose will be changed to 2 mg days 1 through 14 every 28 days. Follow-up 1 month. -- 05/07/2022: Platelets 48,000. Continue monthly daratumumab 16mg/kg IV with same Pomalyst dose 2mg daily D1-14 every 28 days. Extend next follow-up with kappa/lambda light chain ratio to 2 months. --07/10/2022: Platelets 53,000 with ANC now 600 (held Pomalyst one week for ANC 300). May have one dose Pomalyst today, then hold for change in therapy. Will have platelet transfusion as needed for change in therapy to Kyprolis/Cytoxan/Deamethasone. --08/20/2022: Platelets declined to mid 30,000 range about 4 weeks ago--now up to 56,000 and WBC 1600 and ANC 1000 on Kyprolis/Cytoxan/Deamethasone. No activebleeding. Continue current dosing and f/uin 3 weeks. --09/17/2022: Platelets at 43,000 without recent transfusion. WBC and ANC at 1.4and 600 respectively. Will continue with treatment. --10/15/2022: Platelets at 49,000. No s/s of bleeding. Ok for treatment. --10/29/2022: Platelets at 31,000 with ANC 400. Dose reductions recommended asnoted above. No active bleeding. Follow-up 6 weeks. --11/26/2022: Platelets at 40,000 with ANC 700. Dose reduction cyclophosphamideonly as noted above. No active bleeding. Follow-up 4 weeks. --No chemo since 12/04/2022. Platelets 37,000-->68,000. --02/18/2023: Platelets still 35,000. Sending for IR guided bone marrow biopsy. Will continue to hold chemotherapy until bone marrow biopsy review in 3 week. We may resume with cytoxan dose reduction if no progression or MDS. She may be a future candidate for bispecific antibodies for multiple myeloma. Still has nobleeding. -- 03/11/2023: Platelets have now declined to 28,000. She had increased bruisingaround the site of her bone marrow biopsy but no other bleeding. We are continuing to hold her chemotherapy for bone marrow cellularity and assess B12, folate, and copper stores. No indication for active treatment of myeloma at this time given plasma cells 4%. We will continue to follow closely with CBC twice this month then if stable once monthly. (4) Cancer-related pain Improved symptoms after palliative radiation to bilateral hips--one dose 02/07/2020, radiation to right hip . Will continue to follow on myelomachemotherapy. Extensive, but stable bone involvement on F-18 PET/CT 12/2020 and 04/2021. Recent increased left neck and shoulder pain. Increased oxyco done dosing to three times daily, no unusual right hip pain is noted above--followed by palliative medicine. -Completed right hip radiation with persistent but improved pain--no new pain issues with follow-upvisit with radiation in early March 2022, follow-up as needed. Will continue to follow with palliative medicine. --02/18/2023: Worsening right hip pain--pending PET/CT for restaging as noted above, f/u 3 weeks. -- 03/11/2023: No change in uptake in the right hip on PET/CT. Following with palliative medicine. No indication for reirradiation to right hip unless refractory to medication therapy. 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 She wasref[facility] to [facility] to attempt weight reduction through diet and exercise that may prevent further fatty infiltration that may further impairher liver function. [facility] hepatology discussed liver transplant but sheis likely no longer a candidate for this given active myeloma. We chose least hepatotoxic regimen for treatment of her active myeloma with 50% dose reduction of Velcade. Liver function remained stable since start of therapy 04/10/2020. --Requested prior liver biopsy and [facility] liver clinic records. Dose reduction 20% Kyprolis due to KAPADIA with cirrhosis (normal bilirubin and transaminases). Stable LFTs on current Kyprolis/Cytoxan/Dexamethasone therapy (on hold since 12/04/2022). (6) Encounter for coordination of complex care Initial Daratumumab maintenance tolerated well without significant toxicities. Bone marrow biopsy did not reveal indication for change in therapy. --09/04/2021: Repeat loading with weekly Daratumumab 16mg first 3 cycles and changed to Revlimid 5mgdaily 1-21 each 28 day cycle--02/19/2022 reviewed informed consent to change to pomalidomide next cycle. --03/19/2022. Pomalyst was stopped after 1 week of therapy on 03/13/2022. Daratumumab held 03/19/2022 due to platelet count 41,000. We resumed both medications on arrival of dose reduce Pomalyst 2 mg days 1 through 21 every 28- day cycle. -- 04/09/2022: Daratumumab is monthly maintenance. Mid July: last dose Pomalyst 2mg today with ANC 600. -- 07/30/2022: Changed chemo to Kyprolis/Cytoxan, normal baseline Echo. -- 10/29/2022: Dose reductions for cytopenias Carfilzomib 27-->20mg/m2 IV weekly, Cyclophosphamide 300--240mg/m2 IV weekly, and Dexamethasone 20mg IV/po weekly. Will continue every 3 week therapy until progression or intolerable toxicity. --11/26/2022: Platelets at 31,000 with ANC 400. Dose reductions Carfilzomib 27-->20mg/m2 IV weekly, Cyclophosphamide 300--240-->180mg/m2 IV weekly, and Dexamethasone 20mg IV/po weekly. Therapy on hold since 12/04/2022 for cytopenias and sinusitis. Continue to hold 02/18/2023 pending bone marrow biopsy. -- January 2023: 1 dose IVIG 0.4 mg/kg due to recurrent sinusitis. No improvementof platelet count. -- 03/11/2023: Bone marrow biopsy with 10% cellularity, 4% plasma cells. Decision to continue to hold carfilzomib/cyclophosphamide/dexamethasone and work-up for nutritional etiologies. - Chemo Plan Chemo Plan (Dose, Rate, Freq): Active chemotherapy on hold since 12/05/2022 due to persistent thrombocytopenia. Goal of Treatment: Palliative - Time with Patient Time Spent with Patient (Follow Up Visit): 45 minutes or more - High complexity--review results of PET/CT and IR bone marrow biopsy, discussion with patient and daughter to continue to hold therapy, nutrition evaluation for cytopenias Coordination of Care & Counseling Time: Greater than 50% of time spent with patient was for coordination of care (as documented) and [id number] counseling of patient and/or family. Dictated By: Fabiola Marinelli MD DD/ 3 Signed By: <Electronically signed by MD Fabiola Marinelli> 03/11/2343 [facility] Work Phone: Progress note Author Fabiola Marinelli [facility] June 10, 2023 7:36pmNote Date/TimeAugust 2022 1:37pmTexas Health [facility] [place] [address] Hem/Onc Follow Up Note - OP Signed Patient: Mojgan Pérez MR#: [id number] : 1955 Acct:[id number] Age/Sex: 67 / F Type: REG RCR Copies to: MD Yinka Downey MD Katherine M McGraw, VISUAL [employer]CH[employer]IS[employer]~ Subjective Date/Time of Service: Date of Service: 06/10/2023 Time of Service: 13:35 Chief Complaint: Patient is here today for a 3 month follow up and go over labs HPI: 06/10/2023: Mojgan is unaccompanied today--scheduled to see Dr. Lindquist tomorrow but she noted a family emergency and feels she cannot travel there tomorrow. I contacted him and he agrees to changeto a virtual visit. Increased bruising but no epistaxis, mucosal bleeding, or bright red blood per rectum. No worsening of bone pain or baseline neuropathy. Platelets remain low30,000 to high 20,000 range. WBC 1700 with ANC about 1000. Uptrending lambda light chain now to 241. I asked Dr. Lindquist to evaluate for potential biphenotypic antibody therapy or CAR-T option for myeloma. I will continue to hold therapy for another month (last Kyprolis/Cytoxan given 6 months ago) and will f/u around 4-6 weeks to review recommendations from Dr. Lindquist and f/u myeloma labs. Moderate complexity 30minute f/u. 03/11/2023: Mojgan is here for follow-up of bone marrow aspiration and biopsy performed in interventional radiology on 02/24/2023 as well as follow-up F-18 PET/CT. She has continued right hip pain andsaw nurse practitioner Pearl Holder the day after her bone marrow biopsy. She started oxycodone 10 mg 4 times daily as needed with continued gabapentin 400 mg on an as-needed basis. She previously received radiation to the right hip in July-August 2021 over 15 elapsed days--I am reluctant to repeat radiation to this area unless pain is refractory to oral medications. The PET/CT from 03/09/2023 showed relatively patchy abnormal radiotracer accumulation in the skeletal structures that similarto prior exam consistent with her multiple myeloma but no new areasof radiotracer accumulation. Theright hip uptake looks relatively stable from prior PET/CT in March 2022. The bone marrow aspirate and biopsy showed low cellularity for age about 10% with 4% clonal plasma cells by immuno chemistry and 0.7% of lambda mononuclear plasma cells on flow cytometry with a population of atypical CD10 positive B cells. She had presence of stainable iron stores 1+and no evidence of amyloid deposition. Her peripheral blood platelet count is now 28,000 and she does not have any active bleeding. She did have extensive bruising after her bone marrow biopsy. She has not had any recent infections and received 1 treatment with IVIG in early January. -- At this time I recommend holding active therapy for her myeloma given her cytopenias and plasma cells less than 10%. We will continue to follow CBC every2 weeks for her platelet count this month and if relatively stable continue CBC monthly. I will also send vitamin B12, folate, copper, ceruloplasmin, and iron panel to see if we can optimize her from a nutritional standpoint to improve herthrombocytopenia. This may also be due to her hepatic steatosis. Her next follow-up with me with myelomalabs to include quantitative immunoglobulins and kappa/lambda light chain analysis will be in 3 months or sooner as needed. Thisis a high complexity visit over 45 minutes for review of bone marrow biopsy and imaging results, discussion of continuing to hold further therapy (Kyprolis/Cytoxan last given December 2022), and plan nutritional labs with follow-up phone call with results. 02/18/2023: One month followup--still off active therapy with Kyprolis/Cytoxan past 2 1/2 months dueto persistent thrombocytopenia and initiation of IVIG for admission for urosepsis 01/28/2023. Despite off therapy, she has persistent low platelets 35,000 without bleeding. Uptrending kappa light chain to 60s. Notes recurrent right hip pain--I recommended repeating F-18 PET/CT to determine if bony progression with right hip/pelvis/femur film. Will also set up IR guided bone marrow biopsy--review results in 3 weeks and decide whether to resume activetherapy. If lytic lesion at hip/acetabulum/femur concerning for potential fracture, will refer to orthopedics for possible prophylactic kenton. Still no contact from Dr. Benavidez for bispecific antibody therapy. Moderate complexity 35 minute followup. 01/09/2023: Here for followup after consult with Dr. Benavidez last week. Progress note is still pending, but we communicated by secure text regarding her evaluation. Myeloma labs are stable with mild increase of serum kappa from 40s to 60s range. Platelet count now to 68 and ANC 900 since holding Kyprol is/Cytoxan since 12/05/2022 for cytopenias. We decided to hold 2 more weeksthen resume Kyprolis at same dose 20mg/m2 and further decrease Cytoxan to 40% dose overall when we resume dose. Next line of therapy at progression may be CD3/BCMA myeloma bispecific antibody Teclistamab (needs to be hospitalized firstweek due to risk of cytokine release syndrome). Plan to resume likely in 2 weeks if adequate blood counts and no infection. F/u with myeloma labs (CBC, CMP, quant immunoglobulins and kappa/lambda light chains) in 2 months, sooner prn. Moderate complexity 30 minute followup. 12/26/2022: Mojgan continues to have nasal drainage sinus congestion and pain despite completing 2 weeks of amoxicillin and no air-fluid level on CT Sinuses 11/30/2022. We gave last dose of Kyprolis/Cytoxan (60% dose) on 12/05/2022. Peripheral neuropathy is stable, no diarrhea, no skin rashes. We reviewed her labs with ANC 900, platelets 37,000 and she notes easy bruising but no nasal/oral mucosal, GI or bleeding. I will again hold Kyprolis/Cytoxan another 2 weeks and give 2 weeks of Augmentin 875/125mg bid for her persistent sinus infection and Diflucan 100mg daily for vaginal candidiasis. Will formallyrefer back to Dr. Benavidez to see if she is a candidate for the CD3/BCMA myeloma bispecificantibody therapy which she would need to receive at [facility]. F/u with me in 2 weeks--if persistent cytopenias we may need torepeat her bone marrow biopsy (if now performed by Dr. Benavidez). She agrees with this plan over this 35 min moderate complexity followup visit. 11/26/2022: Mojgan is here for monthly followup on modified CYKLONE therapy. Notes increased frontal headaches over the past with with nasal congestion--sending for sinus CT and 2 week course of Augmentin bid. Platelet count recently dropped as low as 25-31,000 without bleeding (currently 40,000), WBC to 1300 with ANC 700. No current fever, chills or symptoms of infection. Prior dose reductions of Kyprolis to 20mg/m2 weekly with cyclophosphamide 240mg/m2 weekly). Echo with normal EF 55-60%. We will further dose reduce cyclophosphamide to 180mg/m2 (overall 40% dose reduction) and maintain Kyprolis at 20mg/m2. She has ongoing decline of lambda light chains over the past 6 months indicating response. I discussed her case with Dr. Piter Benavidez who notedtherapy could be held if worsening cytopenias. For now continue monthly followup with myeloma labs (quant immunoglobulins and kappa/lambda light chains). Bleeding precautions and f/u sooner if new symptoms arise. Moderate complexity 35-minute visit for review of complex labs and adjustment of chemotherapy regimen. 10/29/2022: I asked Mojgan to return today due to cytopenias on labs and discussion of either dosereduction or changing therapy. She notes that over the last 2 weeks she has had cough, body aches, worsening fatigue, but no fever. She was diagnosed with a non-COVID viral syndrome. Her symptoms arestarting to get better but she has more significant cytopenias with absolute neutrophil count of only 400 with total white blood cell count 1000. In addition her platelet count is 31,000 she has not had any active bleeding issues. We were unable to contact her to tell her not to come in for chemo but I decided to see her today since she was last evaluated by nurse practitioner last 2 visits. Hermyeloma labs show relatively stable lambda light chains which appear to have responded since start oftherapy in July. She is due for her echocardiogram and due to her cytopenias we will hold therapy today and plan 1 level dose reductions of both cyclophosphamide (from 300 to 240 mg/m2 IV weekly)with Kyprolis dose reduction (from 27 to 20mg/m2 IV weekly). She has been off therapy past 2 weeks due to cytopenias. If she is unable to resume therapy we may consider an alternate therapy such as Blenrep. She is otherwise in agreement with current plan of care. Moderate complexity 35-minute visitfor review of complex labs and adjustment of chemotherapy regimen. 10/15/2022: Mojgan is here for follow-up for her multiple myeloma on modified CYKLONE therapy. Shecontinues to do well and remains active at home. She deniesshortness of breath, chest pain, nausea,vomiting, diarrhea or constipation. Sheis eating and drinking well. No fevers, chills, sweats, bleed ing or rash. She does note mild tongue soreness and on exam it appears she may be developing thrush, very mild currently on the tongue only. We will prescribe nystatin for this. Labs are reviewed andstable overall, ok for treatment. She will follow-upin 4wks with Dr. Marinelli with repeat labs and treatment. 09/17/2022: Mojgan is here for follow-up on modified CYKLONE therapy for her multiple myeloma. Shecontinues with fatigue, but otherwise no new complaints. She has no s/s of infection, no shortness of breath, chest pain, n/v/d or other concerns. In review of her labs, her WBC are 1.4, ANC 0.6 and platelets 43,000. Per Dr. Marinelli, given no s/s of infection and she otherwise feels well, she is okfor treatment. We discussed signs to report related to infection such as fever, chills, etc. and she will call with any concerns. We will follow-up in 3wks withrepeat labs. 08/20/2022: Mojgan is here for 3-week follow-up on modified CYKLONE therapy (cyclophosphamide 300 mg/m2 IV weekly, dexamethasone 20 mg IV weekly, and carfilzomib now 56 mg/m2 IV weekly). Baseline echocardiogram 07/18/2022 showed normalejection fraction 60 to 65%. I discussed her case with Dr. Mason advised that despite her significant thrombocytopenia she should be treated with full dose cyclophosphamide/carfilzomib and may support with transfusions as needed. The patient's lowest platelet counts were in the 30,000's after her first week of therapy but now is up to 56,000. She has not hadany clinical bleeding. Nancy has persistent leukopenia 1900 today with absolute neutrophil count now 1000. At this point as long as she does not have any significant symptoms of therapy or signs ofinfection or active bleeding we will continue her current dosing. She otherwise notes mild fatigue but no other toxicities. Prior skin rash on Pomalyst has resolved. She will follow-up in 3 weeks fortoxicity checkwith nurse practitioner and we will order her restaging myeloma labs with serum protein electrophoresis with immunofixation, quantitative immunoglobulins, and kappa/lambda light chain ratio. She may return sooner if new issues arise. Moderate complexity follow-up over 30 minutes to address cytopenias on CYKLONE therapy. 07/10/2022: Mojgan is here for 2-month follow-up of myeloma labs. No changes in medical history and platelet count remains in the 40-50,000 range without bleeding. We held her Pomalyst (as well as daratumumab) this week due to absolute neutrophil count of 300 without any recent infections. She previously held it for 1 week due to neutropenia, took 1 tablet, then had to hold a second week due to neutropenia. We reviewed her kappa/lambda light chain ratio which continues to progress in the wrong direction (total lambda light chains now increased from 109 to 125.7 with ratio from 0.11 to 0.08). Her progressive cytopenias and worsening light chains likely reflects progression of myeloma. We could repeat her bone marrow biopsy but her most recent bone marrow biopsy on10/09/2021 showed hypercellular bone marrow (30%) with slight megakaryocytic and granulocytic hyperplasia and only 1.5% plasma cells (Lambda restricted by flow cytometry). This likely would not change her current management and I discussedher case with Dr. Benavidez of malignant hematology who recommended considering carfilzomib (Kyprolis) with cyclophosphamide. I will contact patient to coordinate baseline echocardiogram forKyprolis and likely she will require dosereductions for her underlying hepatic dysfunction and chronic cytopenias. AfterI reviewed dosing with Dr. Benavidez and pharmacy and review her echocardiogram, paulwill coordinate follow-up for change in therapy and chemotherapy consent. For now we will continue daratumumab with altered dose of Pomalyst to 2 mg twice weekly ( and Mondays) until change in therapy. I will not likely send dose reduction of Pomalyst due to planned change in therapy. Moderate complexity 35 minutes for coordination of care. 05/07/2022: Improved rash on 2 mg of Pomalyst, now mild pruritus. Platelet count is 48,000 without bleeding issues. Continues weekly prednisone. Daratumumab isnow monthly since early April. Repeat kappa/lambda light chain ratio slightly higher (106 to 109) But the upward trend is starting to flatten out. F-18 Axumin PET/CT shows no new lesions, relatively stable from 1 year ago. For now given her stable symptoms and pronounced cytopenias, we will continue her current dosing daratumumab/Pomalyst/dexamethasone. Next follow-up with me in 2 months. She will return sooner for issues arise. Moderate complexity visit over 35 minutes. 04/09/2022: Mojgan continues every 2-week durvalumab with Pomalyst now 2 mg daily (dose reduced due to diffuse rash). She is now day 14 of the cycle and isnoted to have platelet count of 40,000 (no associated mucosal bleeding, bright red blood per rectum, or hematuria). No recurrent rash on this dose. She continues her weekly prednisone. I recommended changing her schedule of Pomalyst to 2 mg daily for days 1 through 14, off days 15 through 28 cycle and continuing daratumumab. Her most recent immunoglobulins have shown a steady trend upward for lambda light chain and decrease of kappa/lambda light chain ratio, however since she is now stabilizing her dosing of daratumumab/Pomalyst/dexamethasone I recommend continuing her current dosing for1 more cycle with repeat kappa/lambda light chain ratio in another month. In addition I will set her up for F-18 Axumin PET/CT to compare to PET/CT from 1 year ago (her skeletal survey showed no lesions 6 months ago). She denies any current bone pain.She will proceed with daratumumab dose as previously orderedtoday. 03/19/2022: Mojgan is here for follow-up after adverse cutaneous reaction to her first cycle of Pomalyst. She noted that after starting her first dose of Pomalyst 3 mg daily on 03/05/2022 that about 1 week later on 03/13/2022 she had a diffuse rash all over that was pruritic with increased erythema. She did not have nausea, vomiting, constipation, diarrhea, dyspnea, or any other adverse reactions. She did have a decline of platelet count to 41,000 this week which may be due to her Pomalyst. She called the pharmacy and was instructed to discontinue Pomalyst on 03/13/2022. Her rash has mostly resolved with no furtherpruritus but she still has a few macular lesions over the legs. She has been using Benadryl and topical cortisone cream with improvement of the rash. Otherwise her laboratories are stable. She does have an increased kappa/lambda light chain ratio from 03/05/2022 but this was her first day of therapy. I recommended resuming Pomalyst at next dose level 2 mg daily as soon as new medic ation arrives for 3 weeks on 1 week off. If she has recurrent rash she will again stop and we will consider further dose adjustment. Due to her thrombocytopenia we will hold her daratumumab today andconsume with first day of Pomalyst next week. She may follow-up in about 3 to 4 weeks, possibly with virologist covering at that time. Patient expressed understanding. 02/19/2022: Mojgan is here for follow-up--no new symptoms but her platelet countdropped to 48,000 last week and we are again holding her Revlimid. She has not had any bleeding or infection recently, but she has had uptrending lambda light chains and we discussed changing her therapy from lenalidomide to pomalidomide and continuing her daratumumab which is currently every other week. Her only other concern is constipation which is likely related to her pain medications. ANC was 800 today. --Today we reviewed chemotherapy counseling for lenalidomide in combination withdaratumumab/dexamethasone (stopping Revlimid). Common toxicities were reviewed to include allergic reactions, myelosuppression, thrombosis, fatigue, nausea, vomiting, constipation, diarrhea, mouth sores, and risk of secondary malignancies. Other toxicities may include pneumonitis, neurologic, hepatic and renal toxicities. The patient signed informed consent and will follow-up as directed. Planning a trip to [place] on March 06, therefore we will hold Revlimid until arrival of her pomalidomide, then have oral chemotherapy visit. We are starting pomalidomide at 3 mg daily days 1 through 21 every 28 days due to baseline liver dysfunction. Follow-up cycle 1 week 2. We will recheck her baseline myeloma labs on start day of pomalidomide with daratumumab. 01/22/2022: Mojgan has no new complaints. She was seen by Dr. Benavidez at for evaluation for transplant and CAR-T options but given her profound thrombocytopenia, neither of these options are felt tuyet optimal for her. She has had gradual worsening of her lambda light chains without any change of r enalfunction or hypercalcemia. Her chronic thrombocytopenia has remained in the 40-50,000 range which is lower than her prior baseline. I reviewed her options with Dr. Benavidez and it is difficult to assess best options due to her chronic thrombocytopenia but standard of care at this point would be tocontinue her daratumumab and transition from the lenalidomide to pomalidomide. We will follow closely with weekly CBCs to determine if thrombocytopenia worsens on thisregimen. I will defer changing her regimen for 1 month since she is starting a new cycle of lenalidomide and has had slow progression of her lambda light chains. She will return in 1 month and will discuss pomalidomide and signed inf ormed consent. Patient is in agreement with this plan. 12/18/2021: Mojgan is here for 3-month follow-up. She has not had any significant changes in medical history other than testing positive for coronavirus infection in early November 2021. She has not been immunized for coronavirus. She notes persistent fatigue but no bone pain. No other recent infections or bleeding episodes. She recently changed from weekly to now every 2 weeks daratumumab 16 mg/kg and remains on low-dose lenalidomide 5 mg daily for 2 weekson 1 week off due to prior thrombocytopenia worsening. October 2021 skeletal survey showed no osteolytic lesions suggestive of myeloma. Initially she had improvement of her platelets to 70-100,000 but today platelets are down to 54,000. She also had some improvement of leukopenia but this is again down to 2800 with ANC 1300 today. Urinerandom M spike is not observed, but she has hadprogressive increase of her lambda light chains from30 in December 2020 to 60.2 inDecember 2020. [place] lambda ratio has also started to decline to 0.21 in October 2021. For now I'm continuing her daratumumab with Revlimid at current dosing, but I contacted Dr. Benavidez at [facility] for CAR-T cell eligibility. If he has recommendations to change her therapy, I will let her know. Otherwise I will have her follow-up with me in 1 month (she willhave repeat myeloma labs 1 week prior to visit). 09/20/2021: After telephone consultation with Dr. Benavidez at , we resumed repeat loading doses of weekly daratumumab 16mg/kg and changed to low dose lenalidomide 5mg daily. She has had 2 courses of antibiotics for sinus infection over the past month and was noted to have neutropenia with ANC 900, platelets 44,000 week 2 of Revlimid, therefore this was held for one week and resumed Thursday after ANC returned to 1000. Platelet counts have persisted at 40-50,000 range without active bleeding. Otherwise tolerating therapy well. Still improved hip pain and ambulation after recent course of palliative radiation therapy. For now we will continue Daratumumab with Revlimid and Dexamethasone as ordered with weekly CBC. Gradually increasing lambda light chains--pending evaluation at for CAR-T celltherapy eligibility (has not yet been contacted for appointment). 4 week f/u with me with CBC, CMP,and myeloma labs (follow quant immunoglobulins and [place]/Lambda light chain ratio with skeletal survey in 2 weeks so results available for appointment). 08/30/2021: Mojgan is here for 2-week follow-up for completion of her palliative radiation therapywith significant improvement of pain in her right hip and pelvis. We sent her for echocardiogram performed 08/23/2021 at [facility] [place] as baseline for possible Kyprolis therapy. This returned with ejection fraction 60% which is normal with grade 1 left ventricular diastolic dysfunction and 1+ tricuspid valve regurgitation and traceto 1+ aortic valve regurgitation. Otherwise unremarkable. I discussed her casewith Dr. Benavidez of malignant hematology at [facility]. He advised against Kyprolis therapy given her underlying liver dysfunction and recommended repeating loading doses of daratumumab weekly as well as low-dose lenalidomide which we will start at5 mg daily since she has chronic thrombocytopenia. We will send for CAR-T therapy as a possible therapeutic option. The patient agreed with changing daratumumab to weekly and we will have her sign consent next week for change to low-dose lenalidomide therapy. Next follow-up with me will be in about 2 weeks for week 2 lenalidomide with daratumumab. 08/16/2021: One month followup, she recently completed palliative radiation therapy to right hip and pelvis. Platelet count still in 50,000 range with increased bruising but no bleeding. Still has some pain in right hip but slowlyimproving after radiation therapy. Slowly worsening lambda light chain --she is scheduled for ECHO next week. We discussed possibly changing therapy from Daratumumab, Velcade, Dexamethasone to Kyprolis, low dose lenalidomide, dexamethasone if adequate cardiac function. I will discuss this with Dr. Benavidez for dosing and determine if CAR-T therapy is another possible option (although we may be limited due to chronic thrombocytopenia and liver disease). Followup 2-3 weeks to review results and possible consent for change in therapy. 07/17/2021: 2-month follow-up on multiple myeloma. She reports that Thursday she developed severe painin the right leg that started proximal to the knee creating it to the hip. She had increased pain with weightbearing on the right and has been using a walker at home secondary to this. She did not feel a pop or shift in ambulation, but has been using her Percocet for pain control at home. In reviewing her laboratories platelet count remains in the 52,000 range and she is otherwisPe tolerating daratumumab well. I recommended sending for right hip, femur, and knee plain film imaging that did not show any fracture. She does have a gradually rising lambda light chain but no other significant changes in her labs. I reviewed her case with Dr. Cheng of orthopedic surgery who also reviewed her prior PET/CT showing uptake in this area. We will obtain a right hip MRI, keep her completely nonweightbearing on the right leg with walker for transfers and she has an urgent orthopedic follow-up following her MRI. I will follow-up with her in 1 month to review management and we will determine if she requires prophylactic kenton for stability of the hip based on her MRI. 05/24/2021: Here to followup 05/03/2021 bone marrow biopsy--noted to have decreased cellularity 25%, flow cytometry with 0.2% plasma cells and a 1.5% monoclonal B- cell population. FISH showed 13q and 1qabnormalities but normal cytogenetics. No myelodysplasia seen. I reassured her that recent thrombocytopenia is more likely related to splenic sequestration from liver disease and not worsening myeloma. For now continue current regimen. Will alsorecheck B12, folate, and iron profile with next labs--followup in 2 months with myeloma labs, sooner prn. 04/24/2021: 1 month followup to review PET/CT. Over the past 2 days, she notes episodes of sharp left sided neck pain over sternocleidomastoid muscle and mastoid area. No radiculopathy down left upperextremity. No new side effects of Daratumumab. F18 PET/CT shows largely unchanged diffuse uptake through multiple bony sites in axial and articular skeleton. Lambda light chains risingover past 2 month and decline of platelet count to 57,000 without bleeding. MRIof thoracic spine did not show significant thoracic canal stenosis. Due to worsening neck pain with extensive uptake on F18 PET/CT--we will send for cervical MRI. Palliative medicine has increased Percocet to tid. We will repeat bone marrow biopsy due to rising lambda light chain and falling platelet count to determine if progression of myeloma noted. This will be scheduled in the next 1-2 weeks. 03/28/2021: 2 month followup for multiple myeloma. More recently notes neck andleft shoulder pain. Fatigue and constipation stable. Labs show stable anemia and thrombocytopenia. Serum M-spike now asymmetric gamma (no quantifiable spike). Slowly improving IgG to near normal. [place]/lambda light chain ratio normal with mildly increased lambda light chains. MRI of thoracic spine for evaluation of increasing left shoulder pain. For now we will continue current dosing of Daratumumab and recheck F18 PET/CT for response in late April 2021. 01/21/2021: Mojgan is accompanied by her daughter for 2 month followup--now Daratumumab maintenance. She notes persistent fatigue and recently added as needed laxatives to stool softener for management of constipation. Persistent left hand pain--correlates to an area of bone uptake on PET/CT. Overall F18 PET/CT appears stable with no new areas if FDG avidity (still extensive bone FDGuptake). We reviewed prior plain xrays of left hand from November--she agrees toevaluation by orthopedic surgery (determine if biopsy or steroid injections). M-spike and kappa/lambda light chains pending. CBC (platelets 60-70,000); CMP stable. Will followup in 2 months with exam and labs. 11/26/2020: Mojgan is accompanied by her daughter for 2 month followup--now Daratumumab maintenance. Stable leukopenia/low platelet 70,000. Notes 3 days of hematuria and mild dysuria. Sending UA and possible culture. Otherwise no new bone pain. Blood sugars stable. M-spike and kappa/lambda light chain ratiostable. Next f/u 2 months after one year f/u PET/CT to determine response to therapy. 09/24/2020: Mojgan presents (accompanied by her daughter) for cycle 8, week 2 followup [id number] mg/kg IV weekly, Dexamethasone 20mg weekly, and Velcade 0.7 mg/m? now sq once weekly for every 3-week cycle (21 days). She notes neuropathy symptoms are stable. Tolerating therapy well without fatigue. No bleeding and thrombocytopenia stable in 60-70,0000 range. On 10/02 she will be due for maintenance therapy with Daratumumab alone once per month. I will f/u with her in 2 months with myeloma labs, sooner as needed. Velcade and Dexamethasone will be stopped after 8 cycles. 08/13/2020: Mojgan is here for cycle 6, week 2 (day 14) daratumumab 16 mg/kg weekly, Velcade 0.7 mg/m? now sq once weekly for every 3-week cycle (21 days), and dexamethasone 20 mg weekly. No new symptoms--improving thrombocytopenia to 79,000 and improved leukopenia. 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 Still has improvement of M-spike, IgA normal and decreased lambda light chain and K/L ratio. We discussed that week 25 in Oct she will change to monthly daratumumab with weekly Velcade (1mg/m2) and Dexamethasone. Continue to follow every 6-8 weeks until maintenance schedule. 06/18/2020: Mojgan is here for cycle 3 week 3 (day 21) daratumumab 16 mg/kg weekly, Velcade 0.7 mg/m? now sq once weekly for every 5-week cycle (35 days), and dexamethasone 20 mg weekly. Tolerating well with stable leukopenia and thrombocytopenia. Mild increased symptoms of hand and foot neuropathy, but no limitation in activity. Now following with diabetes management clinic with variable glucosecontrol. We reviewed lower IgA (now M-spike IgG kappa after Daratumumab--previously IgA lambda). Lambda light chain has decreased from 516 to 41.3 to now 18.5 with normalization of K/L ratio. Continue followup myeloma labs in 6 weeks, visit in 8 weeks. 05/21/2020: Mojgan is here for cycle 2 (week 7 overall) daratumumab 16 mg/kg weekly, Velcade 0.7 mg/m? now sq once weekly for every 5-week cycle (35 days), and dexamethasone 20 mg weekly. Tolerating well with stable leukopenia and thrombocytopenia. No significant neuropathy. Noted to have improvement in lambda light chains. No further daratumumab infusion reactions. No infections,stable constipation, pain control improved. No other complaints. Continue monthly f/u with myeloma labs. --Diabetes management--added insulin on dexamethasone days. Hyperglycemia improving. -- -------- 01/18/2020 (phone followup)--The patient's son was available by phone and her daughter was contactedin a separate phone call as patient presented unaccompanied due to COVID-19 precautions in our clinic during the current epidemic. Bone marrow biopsy results were reviewed as follows from procedure pe rformed 01/26/2020: --Bone marrow biopsy was suboptimal for evaluation. --Increased lambda light chain restricted monoclonal plasma cells (1.9% by flow cytometry, approximately 6% and aspirate count, but 50% by immunohistochemical stains [id number]). Sideroblastic iron present, negative for ring sideroblasts. Peripheral blood smear with mild red blood cell anisocytosis and polychromasia, leukopenia with absolute neutropenia (1000) and thrombocytopenia (54,000) consistent with prior baseline. Note: I discussed the results with Dr. Crook 01/26/2020. Preliminary findings were also discussed with Dr. Cummings 01/27/2020. Morphologic findings, immunohistochemical stains, flow cytometry, and ancillary studies may under represent the extent and severity of disease. The results of FISH myeloma panelwith prognostic markers and cytogenetic analysis are pending. --Given the patient's hip pain and presence of lytic lesions, she meets clinicalcriteria for activemyeloma. Given her hip pain and lytic lesions in weightbearing areas she was offered radiation therapy. She had a limited courseof hypofractionated palliative therapy to bilateral proximal femurs [address] Ahn[address] We discussed that given the COVID-19 epidemic and absence of othersignificant changes other than bony lesions (normal renal function, normal calcium, stable cytopenias), I would defer active therapy for myeloma for 4 to 6 weeks. Since she has significant history ofliver disease I will discuss her case with Dr. Piter Benavidez at [facility] malignant hematology for optimal regimen. The patient is not a transplant candidate given her nonalcoholic steatohepatitis and chronic thrombocytopenia but may be a candidate for either doublet therapy (Revlimid/dexamethasone) or triplet therapy with either Velcade/Revlimid/dexamethasone or daratumumab/Revlimid/dexamethasone. --02/03/2020: Mojgan presented unaccompanied for follow-up of bone marrow aspiration and biopsy performed by Dr. 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 The patient had been noting increased left hip pain over the past several months andplain films of the pelvis and bilateral femurs did show subtle lucencies in the bilateral proximal femurs corresponding to PET/CT findings but no other additional sclerotic lesions identified. No pathologic fractures were seen. --03/05/2020: Mojgan notes improvement of bilateral hip pain since radiation. No other changes in medical history in the past month--no infections, normal renal function, no hypercalcemia. Stable platelet counts without bleeding. Shewas given written literature regarding Dexamethasone, Velcade (thatwould be dose reduced to 0.7mg/m2 twice weekly), weekly Daratumumab and Revlimid, but I will defer decision of which regimen to use until discussion in malignant hematology tumor board. Also referring for infusion port placement prior to initiating therapy. Sign informed consent prior to initiating therapy. --Discussed with Dr. Benavidez who favors Daratumumab combination--will request prior liver biopsy and records from [facility] liver clinic. The patient and her son (by telephone) expressed understanding and will follow- up as directed in 2 weeks for consent and likely start of therapy. --04/02/2020: Mojgan presents after infusion port placement at [facility] by interventional radiology due to platelet count 40,000--she had increased bruising at site post procedure, but this has completely resolved. Her hip painis well controlled since completion of palliative radiation and no newareas of pain. She has previously reviewed information regarding Daratumumab (first dosesplit 8mg/kg IV D1,D2, then if well tolerated 16mg/kg IV weekly), Velcade at about 50% dose (for liver dysfunction) 0.7mg/m2 D1,D4,D8, D11, and [id number] IV weekly--repeat for every 3 week cycles 1st 3 cycles. She will take chemo class and likely start therapy within 2 weeks with toxicity visit in 3 weeks. Today we reviewed chemotherapy counseling for Daratumumab, Velcade, and Dexamethasone. Common toxicities were reviewed to include infusion reaction including rash/dyspnea/wheezing, myelosuppression, fatigue, nausea, vomiting, constipation, diarrhea, mouth sores, and alopecia. Other toxicities may in cludepneumonitis, neurologic, thromboembolism, hyperglycemia, hepatic and renal toxicities. The patient signed informed consent and will follow-up as directed. --04/19/2020: Mojgan is here for cycle 1 week 2 daratumumab 16 mg/kg weekly, Velcade 0.7 mg/m? twice weekly for first 2 weeks of every 3-week cycle, and dexamethasone 20 mg weekly. She did have an infusion reaction with first daratumumab with dyspnea and flushing but this improved after first dose and shehas not had recurrent infusion reactions. We have continued Velcade despite platelet counts in the 40,000 range without bleeding as we know that her baseline platelet counts remain in this range and she has not had any significant change from her baseline. Dexamethasone has caused hyperglycemia with blood sugars up to 400 and we are referring to diabetes management clinic. Otherwise she denies any significant nausea, emesis, fever, chills, night sweats, constipation, diarrhea, rash, mouthsores, or alopecia. She has not hadany change of baseline neuropathy. Liver function tests remain stable. She notes that her hip pain is well controlled since prior palliative radiation and she saw radiation oncology earlier this week with no new recommendations. I will send her myeloma labs including serum and urine protein electrophoresis, quantitative immunoglobulins, and serum kappa/lambda light chains in 2 weeks andfollow-up with her in 3 weeks. She may be seen sooner if new issues arise. This is a 67-year-old lady on chronic disability has a history of arthritis, diabetes mellitus, hypertension, COPD, GERD, and fibromyalgia [facility]. She states that she was followed with Dr. Kumari prior to his senior care and was told that she had an elevated protein level as well asthrombocytopenia but never had clinical bleeding. She is 4 para 4 without complicationsand was never told that she was thrombocytopenicwhile . She is had multiple prior surgical procedures without any clinical bleeding. She had been recommended for a pain procedure with Dr. Wilsonbut he declined to do the procedure because her platelet count was less than 100,000. For this reason she received 2 platelet transfusions, with little improvement of her platelet count and her second transfusion resulted in throat tightening due to allergy to platelets . She has never been treated with steroids and has never been told that she has immune thrombocytopenia. She has mild leukopenia with relative neutropenia, absolute neutrophil count of 400-800 and mild lymphocytosis. Hemoglobin is normal. She has not had any bright red blood per rectum or epistaxis. She has no history of bleeding within the familyhowever does have a mother and sister diagnosed with colon cancer, a brother diagnosed with lung cancer, and another sister diagnosed with breast cancer. She had prior pain in the right hand mainly at the first MCP joint with some associated swelling and right foot pain and was evaluated by podiatry. She was told that her blood tests were negative forgout. She had screening with MALLORY, CCP, and rheumatoid factor all of which were negative. She says that she previously saw Dr. Petersen for cirrhosis but did not know of any specific therapy. We reviewed these findings from her liver ultrasound ordered by Dr. Benavidez Summer 2016. Initial consultation with me March 16, 2017. --The patient has been followed by me for some time for diagnosis of smoldering myeloma with a prior bone marrow biopsy May 2017 showing 15% plasma cells but the patient remained asymptomatic without bone pain or other CRAB criteria for therapy. She is also noted to have an ascending aortic aneurysm and has chronicliver disease with cirrhosis secondary to nonalcoholic steatohepatitis. She haschronic thrombocytopenia without bleeding ranging from 50-100,000 this is felt to be due to sequestration from her nonalcoholic steatohepatitis. She was previously on a liver transplant list but was recently notified that she is no longer a candidate for liver transplant. She has had chronic pain from f ibromyalgia but noted increasing bilateral hip and upper thigh pain over the last 6 months. She also is followed for EGD/colonoscopy with last documented procedure 09/21/2018: 1. Normal EGD, 2. Mild sigmoid diverticulosis, 3. Internal hemorrhoids, grade 2, 4. Anal fissure with active bleeding cauterized by bipolar cautery Bone osseous survey in June 2019 showed osteopenia and degenerative changes but no lytic or blastic lesion. Patient had an F-18 PET scan 01/02/2020 which showed multiple areas of involvementof bones with increased SUV activity. She was contacted with these results by phone and I recommended bone marrow aspirate and biopsy for assessment and analysis. Her prior labs were reviewed. Her SPEP does not show anymonoclonal gammopathy. On VAHID there appears to be a trace of monoclonal gammopathy. Free light chain ratio is less than 100. There is no evidence of renal sufficiency. Patient is not anemic. She doeshave some abnormal areas on bone scan. - Summary of Therapies Summary of Therapies: 1. 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 2. She underwent a single dose of palliative radiation therapy to bilateral hips, receiving 800 cGyto right and left hip in 1 fraction in separate vaz (with a single isocenter). The treatments were given with AP/PA vaz MV photons and MLC blocks. 3. Deferred active therapy for myeloma 2 months given COVID-19 epidemic with increased risk of myelosuppression and viral transmission of contacts. --Follow-up 03/05/2020 I discussed her case with Dr. Piter Benavidez at malignant hematology. --Given her significant hepatic dysfunction, I presented her case at malignant hematology tumor board to discuss optimal therapy. 4. Cycle 1 day 1 04/10/2020: Dose reduced Velcade 0.7 mg/m? twice weekly (day 1,day 4, day 8, day 11)every 3 weeks with dexamethasone 20 mg weekly and daratumumab 16 mg/kg weekly of each 21-day cycle.After first week, Velcade decreased to 0.7mg sq weekly due to thrombocytopenia. --We will need to watch liver function, platelet count, and neuropathy closely on Velcade. 5. Cycle 9 day 1 10/02/2020: Daratumumab 16mg/kg once monthly maintenance therapy until progression. 6. 07/31/2021: Palliative radiation therapy to right supra chondral/soft tissuearea of hip which is PET positive. She received a dose of 3000 cGy in 10 fractions from 07/31/2021 to 08/15/2021 over 15 elapsed days 7. 08/30/2021: Right hip pain improved after radiation. Due to disease progression with persistent cytopenias, changed to repeat loading doses of daratumumab 16 mg/kg weekly for cycles 1 through 3 with Revlimid 5 mg daily for 3 weeks on 1 week off. Held Revlimid second week due to neutropenia with sinus infection, resumed 3 days ago (09/17/2021). Referred for CAR-T therapy evaluation. 8. 12/18/2021: Daratumumab is now 16 mg/kg every 2 weeks with Revlimid 5 mg daily for 2 weeks on 2 weeks off due to neutropenia and thrombocytopenia. Stillpending evaluation for CAR-T therapy. 9. 01/22/2022: Patient is not deemed a candidate for stem cell transplant or CAR- T therapy at this time. Discussed changing from current Revlimid to pomalidomide with continued daratumumab 16 mg/kg every 2 weeks. Plan change in therapy in 1 month. 10. 02/19/2022: Continue daratumumab 16 mg/kg IV every 2 weeks and changed to pomalidomide now 3 mg daily days 1 through 21 of each 28-day cycle (lower dose due to baseline liver dysfunction) -- 03/19/2022: Patient was noted to tolerate Pomalyst only 1 week (03/05- 03/13/2022)due to grade 3 rash. This resolved after stopping medication 1 week later. 1 dose level reduction Pomalyst to 2 mg daily days 1 through 21 of each 28-day cycle. Also holding daratumumab daily for platelet count of 41,000 and will resume at full dose with first dose of Pomalyst. -- 04/09/2022: Platelet 40,000 without bleeding. Will continue monthly Daratumumab with change of Pomalyst to 2mg D1-14 each 28 day cycle (off 2 weeks due to low platelets). Rising lambda light chains,unable to tolerate Pomalyst due to cytopenias, stopped mid 07/2022. 11. 07/18/2022: carfilzomib (dose 20mg/m2 day one then 27mg/m2 D8, D15) with cyclophosphamide 300mg IV weekly and weekly dexamethasone. Baseline echocardiogram EF 60-65%. We will follow closely for her chronic cytopenias andliver dysfunction. -- 10/29/2022: Regimen on hold for past 2 weeks due to cytopenias. Today with ANC 400, holding another week and will reduce dose of carfilzomib to 20mg/m2 IV weekly with cyclophosphamide 300-->240mg/m2 IV weekly, continue weekly dexamethasone. -- 11/26/2022: ANC 700, Platelets 40,000. Continue carfilzomib 20mg/m2 IV weekly with cyclophosphamide 300-->240-->180mg/m2 IV weekly, continue weekly dexamethasone. -- Carfilzomib/cyclophosphamide on hold since 12/04/2022 due to cytopenias, pending evaluation by for bispecific antibody therapy. --01/09/2023: Improving cytopenias ANC 900, platelets 68,000. --02/18/2023: Still on hold since 12/04/2022 (if resumed will give carfilzomib 20mg/m2 IV weekly with cyclophosphamide 300-->120mg/m2 IV weekly. 02/24/2023 bone marrow with 4% plasma cells, hypocellular 10%. Continue to hold active therapy for myeloma 03/2023 and 06/2023 visits. Second opinion with Dr. Lindquist at . ROS Details: All systems reviewed & no additional complaints except as documented Subjective/ROS - Narrative: Constitutional: No Chills, No Diaphoresis, Stable Fatigue, No Fever, No Malaise, No Night Sweats, No Weakness, No Weight Gain, No Weight Loss Gastrointestinal: No Abdominal Pain, No Black Stool, No Bloating, No Bloody Stool, positive for constipation, No Diarrhea, No Dysphagia, No Hematemesis, No Nausea, No Postprandial Pain, No Rectal Bleeding, No Rectal Pain, No Vomiting, Other (chronic gastroesophageal reflux stable) --No jaundice or ascites but patient has longstanding nonalcoholic steatohepatitis with cirrhosis, previously followed by [facility] gastroenterology. Cardiovascular: No Chest Pain, No Edema, No Palpitations, No Syncope Genitourinary: No Discharge, No Dysuria, No Flank Pain, Frequency (chronic andunchanged), Resolved Hematuria, No Incontinence, No Nocturia, No Urgency, No Urinary Retention Musculoskeletal: + left shoulder and neck pain as per HPI (no thoracic cord compression). Recent worsening right hip/thigh pain; positive for intermittent lumbar back pain, No Chest Wall Tenderness, Improvement of prior Joint Pain, Muscle Stiffness, Myalgia (history of fibromyalgia), --unremarkable skeletal survey June 2019. 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 12/2020: F-18 PET/CT stable. 04/2021 F-18 PET/CT stable. Right hip pain mildly improved after palliative radiation. 04/30/2022 repeat Axumin F-18 PET/CT stablefrom 1 year ago. HEENT: + frontal headache and sinus tenderness/congestion--improved. No Blurred Vision, No Discharge, No Ear Pain, No Epistaxis, No Sore Throat --patient was seen in emergency department November 2019 with persistent epistaxis. She was treated with nasal clip and packing and was advised to continue Afrin. No recurrent bleeding. 2 courses of antibiotics in Aug-Sep 2021 for recurrent sinusitis. 11/30/2022: Polyp only on CT (no air-fluid level). 12/26/22: Augmentin 2 week course and hold chemo. Respiratory: No Cough, No Hemoptysis, mild Shortness of Breath (chronic and unchanged due to COPD),No Sputum, No Wheezing--shortness of breath with daratumumab reaction dose 1 04/10/2020 (given a split dose over 2 days). No recurrent reaction since first dose. Neurological: No Dizziness, Stable Numbness/Tingling (reports long-standing bilateral foot numbness--unchanged since starting low-dose Velcade 04/10/2020), NoPre-existing Deficit (no history of stroke or seizure), intermittent headache Hematologic/Lymphatic: No significant bleeding thrombocytopenia from sequestration/myeloma disease,Bruises Easily, No Enlarged Lymph Nodes, Other (reports allergy to prior platelet transfusion) Endocrine: Excessive Sweating (hot flashes, postmenopausal) Flushing, No Intolerance to Cold, Intolerance to Heat Psychiatric: No Depressed Mood, No Insomnia Integumentary: No Jaundice, No Lesions, positive for diffuse rash on Pomalyst 3mg daily as per HPI.1 level dose reduction to 2 mg daily with only mild rash/pruritus. Due to cytopenias Pomalyst is reduced to 2 mg twice weekly on Mondays and . Stopped Pomalyst in Jul 2022--no recurrent rash. Allergic/Immunology: Previous pruritus with Pomalyst rash resolved off Pomalyst. PMFSH - History Attestation statement: The following information was validated with the patient. Source: Old Records Reviewed - Medical History Medical History: Medical History (Last Reviewed 06/10/23 @ 19:20 by Fabiola Marinelli MD) Aortic aneurysm COPD (chronic obstructive pulmonary disease) Diabetes Fibromyalgia GERD (gastroesophageal reflux disease) Hypertension Iron deficiency Multiple myeloma Neutropenia Smoldering multiple myeloma (SMM) Smoldering myeloma Temporary low platelet count - Surgical History Surgical History: Surgical History (Last Reviewed 06/10/23 @ 19:20 by Fabiola Marinelli MD) H/O: hysterectomy History of appendectomy History of cholecystectomy - Family History Family History: Family History (Last Reviewed 06/10/23 @ 19:20 by Fabiola Marinelli MD) Other COPD (chronic obstructive pulmonary disease) - Social History Smoking Status: Former smoker Tobacco Type: cigarettes Substance Use Type: None Social History Comments: Lives with son a grandaughter Home Medications & Allergies Allergies diclofenac [From Voltaren] Allergy (Verified 06/10/23 13:18) Hives doxycycline [From Vibramycin] Allergy (Verified 06/10/23 13:18) Hives erythromycin base [From E-Mycin] Allergy (Verified 06/10/23 13:18) Hives latex Allergy (Verified 06/10/23 13:18) Unknown Reaction moxifloxacin [From Avelox] Allergy (Verified 06/10/23 13:18) Hives Quinolones Allergy (Verified 06/10/23 13:18) Unknown Reaction tetracycline Allergy (Verified 06/10/23 13:18) Unknown Reaction Home Medications carvedilol 12.5 mg tablet 12.5 mg PO BID 11/20/17 [History Confirmed 06/10/23] duloxetine 60 mg capsule,delayed release 60 mg PO DAILY 11/20/17 [History Confirmed 06/10/23] insulin detemir U-100 100 unit/mL (3 mL) subcutaneous pen 22 units subcut DAILY PRN Hyperglycemia 11/20/17 [History Confirmed 06/10/23] oxycodone 10 mg tablet 10 mg PO BID PRN Pain 11/20/17 [History Confirmed 06/10/23] albuterol sulfate 90 mcg/actuation aerosol inhaler 2 puff inhalation Q6H PRN Shortness Of Breath 11/24/17 [History Confirmed 06/10/23] omeprazole magnesium 20 mg tablet,delayed release (Prilosec OTC) 40 mg PO DAILY 11/24/17 [History Confirmed 06/10/23] metformin 500 mg tablet,extended release 24 hr 500 mg PO BID 03/05/20 [History Confirmed 06/10/23] semaglutide 0.25 mg or 0.5 mg (2 mg/1.5 mL) subcutaneous pen injector (Ozempic) 1 mg subcut QWEEK 09/24/20 [History Confirmed 06/10/23] vitamin B12 0.5 mg-folic acid 1 mg tablet 1 tab PO DAILY 03/28/21 [History Confirmed 06/10/23] lactulose 20 gram/30 mL oral solution 20 g (30 mL) PO BID PRN Constipation #600 mL 04/09/22 [Rx Confirmed 06/10/23] acyclovir 400 mg tablet 400 mg PO BID 90 days #180 tabs 09/24/22 [Rx Confirmed 06/10/23] loratadine 10 mg tablet (Claritin) 10 mg PO DAILY 12/26/22 [History Confirmed 06/10/23] atorvastatin 80 mg tablet 80 mg PO DAILY 01/28/23 [History Confirmed 06/10/23] cyanocobalamin (vitamin B-12) 1,000 mcg sublingual tablet 1,000 mcg sublingual DAILY 01/28/23 [History Confirmed 06/10/23] dexamethasone 4 mg tablet 20 mg PO DIRECTED PRN Systemic Signs And Symptoms 01/28/23 [History Confirmed 06/10/23] fluticasone propionate 50 mcg/actuation nasal spray,suspension 1 spray intranasal DAILY PRN AllergySymptoms 01/28/23 [History Confirmed 06/10/23] insulin aspart U-100 100 unit/mL (3 mL) subcutaneous pen (Novolog FlexPen U-100 Insulin aspart) 25 unit subcut DAILY PRN Hyperglycemia 01/28/23 [History Confirmed 06/10/23] lisinopril 5 mg tablet 5 mg PO DAILY 01/28/23 [History Confirmed 06/10/23] ondansetron 8 mg disintegrating tablet 8 mg PO TID PRN Nausea #30 tabs 02/10/23 [Rx Confirmed 06/10/23] gabapentin 400 mg capsule 400 mg PO TID pain 02/24/23 [History Confirmed 06/10/23] potassium chloride 10 mEq capsule,extended release 10 meq PO DAILY #30 caps 05/18/23 [Rx Confirmed 06/10/23] Objective - Height/Weight Height/Weight: Height 5 ft 2.99 in Weight 81.647 kg BSA for Today's Weight 1.93 - Vital Signs Vital Signs: 06/10/23 13:23 Temperature 97.8 F Pulse Rate [Left Brachial] 77 Respiratory Rate 16 Blood Pressure [Right Arm] 110/63 02 Sat by Pulse Oximetry 98 Oxygen Delivery Method Room Air - Pain Generalized Pain Intensity: 3 Bilateral Hip Pain Intensity: 5 Left Hip Pain Intensity: 4 Lower Back Pain Intensity: 7 Left Neck Pain Intensity: 4 Back Pain Intensity: 0 Right Thigh Pain Intensity: 3 Bilateral Leg Pain Intensity: 5 Generalized Head Pain Intensity: 4 Bilateral Shoulder Pain Intensity: 6 Left index finger Pain Intensity: 4 - Distress Screening Distress Screen Results: RN Distress Screening Start: 02/07/20 10:17 Freq: Status: Complete Protocol: Document 05/01/20 09:33 DB (Rec: 05/01/20 09:33 DB [id number]) Distress Screening Distress Score: 0 No worry/distress Distress Screening Total 0 RN Distress Screening Start: 07/26/21 12:37 Freq: Status: Active Protocol: Document 02/18/23 10:19 LB (Rec: 02/18/23 10:20 LB [id number]) Distress Screening Distress Score: 8 Physical Concerns Pain,Trouble Sleeping Emotional Concerns How my body looks,Feeling uncertain about the future Comments defer to patient navigator Distress Screening Total 8 Distress score of 4 or more discussed No with patient? Physical Exam Narrative: Patient is alert and oriented x3. HEAD / FACE: Normocephalic. No tenderness to palpation over scalp, no sinus tenderness to palpation. EYES: Pupils are equal and reactive to light. Conjunctivae and lids are benign in appearance. Ocular movement intact. EARS: Hearing grossly intact. NOSE / MOUTH / THROAT: No frontal/maxillary sinus tenderness. No oral thrush oraphthous ulcerations. NECK / THYROID: No cervical adenopathy on exam. Thyroid is symmetrical, withoutthyromegaly, masses or palpable nodules. RESPIRATORY: Normal inspection. Lungs clear to auscultation and percussion. No wheezing, rales, rhonchi or rubs. Normal effort. CARDIOVASCULAR: Regular rate and rhythm. No murmurs, gallops, or rubs. ABDOMEN: Bowel sounds normoactive. Soft, nontender and non-distended. No hepatosplenomegaly. No masses. INTEGUMENTARY: The skin is unremarkable. No suspicious lesions or rash. Scattered arm bruising. No petechiae noted. MUSCULOSKELETAL: Normal musculature, normal ROM upper and lower extremities, no crepitus. EXTREMITIES: No leg edema. No cyanosis or clubbing. NEUROLOGICAL: Alert and oriented. Cranial nerves intact. No gross motor or sensory deficits, patient ambulates unassisted. PSYCHIATRIC: No anxiety or evidence of depression. - ECOG Performance Status ECOG Score: 1 Results - Labs Labs: Diagram of Most Recent CBC and CMP 06/03/23 10:36 06/03/23 10:36 Labs - Last 7 Days 06/03/23 10:36: IgG 525 L, IgA 38 L, IgM 32, Free [place] LC, Quant 13.9, Free Lambda LC, Quant 241.0H, Free [place]/Lambda Ratio 0.06 L - Impressions PET f-18 bone subq (nopr) 03/09/2023 12:42 PM SIGNS AND SYMPTOMS: History of multiple myeloma PROTOCOL: PET images were obtained after intravenous radiotracer administration from the top of theskull through the feet. Low-dose CT of the same anatomy was performed. After attenuation correctionof PET imaging, fused PET CT images weregenerated and reconstructed in axial, sagittal, and coronalplanes. COMPARISON: 03/30/2022 RADIOPHARMACEUTICAL: 10.31 mCi of intravenous fluorine 18 sodium fluoride FINDINGS: There is diffuse abnormal increased radiotracer accumulation throughout the calvarium, spine, sternum, clavicles, shoulders, distal humerus, proximal radiusand ulna, pelvis, femurs, left tibia, and bilateral [...] prior exam and consistent with diffuse marrow infiltrativeprocess/history of multiple myeloma. No new areas of abnormal radiotracer accumulation are appreciated. Impression dictated by: Juan J Frazier M.D.03/09/2023 3:22 PM Assessment and Plan - TNM Staging Staging: Stage IIIA Multiple Myeloma (Durie Boring criteria) (1) Multiple myeloma Qualifiers: Multiple myeloma remission status: not in remission Qualified Code(s): C90.00 - Multiple myeloma not having achieved remission Mojgan 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 She has high risk cytogenetics and I [facility]. Her persistent thrombocytopenia made her ineligible for any clinical trials, and preventedher from receiving local pain procedures given her chronic low back pain. --05/2017 PET/CT images and reports performed for staging to exclude bone involvement with myeloma. 2 indeterminate areas of uptake thought to be degenerative arthritis vs early bone findings of myeloma (right parietooccipital areaand upper sternum). She has remained asymptomatic in [...] showed no lytic lesions and she has stableshoulder, hand, and right SI joint pain (although likely due to fibromyalgia. --Prior osseous survey 07/01/2019 showed osteopenia but no compression fractures or lytic lesions were identified. She had no significant change in myeloma labs(mild increase of urine M-spike, kappa/lambda ratio, and normal serum M- spike and quant immunoglobulins). Urine protein still undetectable, therefore will continue surveillance every 6 months with the same labs--no hypercalcemia, renaldysfunction (or proteinuria), anemia, or new bone symptoms. --Due to COVID- epidemic, her 6-month follow-up was performed by [...] proteins with urine M spike 43.1 but totalprotein 34.4, with no reported urine creatinine. --We deferred immunosuppressive chemotherapy for about 1 month due to control ofsymptoms after palliative radiation and concern of potential peak of COVID-19 inlate January early March. --She presented for follow-up 03/05/2020 and we discussed potential therapy options (with son available by phone). --I discussed her case with Dr. Piter Benavidez of malignant hematology, possibly presenting the patient in hematology tumor board at [facility]. --Infusion port placed 03/22/2020 at [facility] due to low platelets. No complications. --03/12/2020: Myeloma labs with no serum M-spike, + urine M spike 22.2mg/24h (14%). Immunofixation IgA lambda specificity. IgA normal 227, Serum kappa 20.6, serum lambda 516.7, Free kappa/lambda ratio0.04. Normal renal function and calcium. Lower ANC 600 and platelets 40,000 --04/10/2020: Started cycle 1 day 1 of weekly dexamethasone 20 mg IV (careful to watch blood sugars with diabetes and known hepatic dysfunction), decreased dose of bortezomib 0.7 mg/m? twice weekly for2 weeks on 1 week off (due to known liver disease and thrombocytopenia), and daratumumab 8mg/kg D1,D2 IV first week,then 16 mg/kg IV weekly and we may consider Revlimid as a 4th medication if needed (deferred for worsening neutropenia and thrombocytopenia--I am reluctant to add this therapy initially). --------- --01/21/2021: One year f/u F18 PET/CT with stable FDG avidity, monoclonal labs (SPEP, Quant Igs, kappa/lambda ratio) all pending. Stable CBC and CMP. Persistent pain left hand 2nd MCP joint--increaseduptake on PET/CT but no lesion on left hand xray from 11/2020. Sending for ortho evaluation. For nowcontinue once monthly Daratumumab. F/u with myeloma labs and exam in 2 months, sooner prn. --05/24/2021: Bone marrow biopsy does not show significant progression although poor prognosis mutation 1q with 13q on FISH. Hypocellular with recent worseningplatelets without bleeding--will recheck B12, folate, and ferritin. [...] sent for plain films of the hip femurand knee showing degenerative changes but no acute [...] progression although she still has slow rise inlambda light chain and platelet count remains in [...] Benavidez who advised against Kyprolis due to herknown liver disease. He recommended repeating loading doses of weekly daratumumab with low dose Revlimid (I will start with 5mg daily D 1-21 each 28 day cycle due to her thrombocytopenia). F/u 2 weeks for toxicity check. She will sign Revlimid consent Thursday. She is in agreement with this plan. --09/20/2021: Started daratumumab loading doses weekly with Revlimid on 09/04/2021. Held therapy forANC 900 and platelet 42,000 with sinus infection, now resolved and resumed Revlimid 5mg daily on 09/17. Will continue therapy as prescribed with weekly CBC and hold Revlimid as needed for cytopenias.Evaluation for CAR-T therapy at [facility]. Send myeloma labs and skeletal survey [...] current cycle of Revlimid with change to pomalidomide4 mg daily, follow weekly CBCs after change in therapy and determine optimal dose based on symptomsand cytopenias. Patient is in agreement with this plan. Next follow-up with me in 1 month and we will defer next light chain analysis until 1 month after change in therapy. --02/19/2022: Continued rise in lambda light chains and worsening thrombocytopenia. Today we reviewed informed consent for adding pomalidomide 3 mg daily days 1 through 21 every 28 cycle 2 every otherweek daratumumab. We are dropping Revlimid due to [...] initial cycle was only given 03/05-03/13/2022. Now thatradha has complete resolution of symptoms she may resume pomalidomide at 1 dose level reduction 2 mg daily for days 1 through 21 of each 28-day cycle. We are also holding her daratumumab today due to declining her platelet count 41,000 without bleeding. Repeat kappa/lambda light chain ratio was increased 80 on 5 4but this was her first dose of pomalidomide. Plan anticipate arrival of pomalidomide within the next 1 to 2 weeks and she may resume daratumumab on day1 of therapy. Her next follow-up will be [...] for following myeloma show normal mild increase herfree lambda from 87 to 106, kappa/lambda ratio decreased 0.10-0.09. I will give her 1 more month ofpomalidomide with daratumumab and dexamethasone. The pomalidomide dose will be changed to 2 mg p.o.days 1 through 14, off days 15 through [...] bony lesions. Her kappa/lambda light chain ratio remainsrelatively stable since early March (0.09-0.11) with free lambda light chainsnow relatively stable (106-109). I advised continuing her current regimen and reevaluating with kappa/lambda light chain ratio in 2 months. Continue current dosing and close observation due to platelet count 48,000. No signs or symptomsof infection. Patient is in agreement with this plan. --07/10/2022: Mojgan has no new symptoms, but continued cytopenias with 2 weeks of pomalidomide helddue to recurrent neutropenia and persistent thrombocytopenia (40-50,000). Continued uptrending lambda light chains consistent with progression of myeloma. We did discuss bone marrow biopsy, but this would not policy change clerk, therefore we will give Pomalyst (now decreasedto 2mg Thursday and only) with last dose Daratumumab tomorrow. 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 --09/17/2022: Mojgan is here for cycle 3 of modified CYKLONE regimen. She continues to do ok with only mild fatigue, no other new complaints or s/s of infection. She is ok to treat per discussion with Dr. Marinelli despite low WBC, ANCand platelets. She will follow-up in 3 weeks [...] She will follow-up in 4wks with Dr. Yves for treatment and with repeat CBC, CMP, SPEP, VAHID, immunoglobulins, and FLC. Sheis in agreement with this plan and has no questions. --10/29/2022: Stable symptoms on current therapy. Recent viral infection with worsening cytopenias.She has been off weekly therapy for the last 2 weeks due to cytopenias, therefore we will hold 1 further week and if her blood counts meet parameters, she will have dose reduced Carfilzomib 27-->20mg/m2 IV weekly, Cyclophosphamide 300-->240mg/m2 IV weekly, and Dexamethasone 20mg IV/po weekly. She is overdue for echo which was ordered today and we will check results beforeresuming therapy. Next follow-up with me in 6 weeks or sooner as needed. [place]/lambda light chains were reviewed and doshow partial response over the last 3 months. We will continue to follow at least every 2 to 3 months while ontherapy. . No longer a candidate for Blenrep--access removed by FDA for limitedefficacy. Moderate complexity 35 minute followup visit. --11/26/2022: No new symptoms with ongoing response of lambda light chains but persistent cytopenias. In absence of new symptoms of infection or bleeding, we will continue therapy with further dose reduction of cyclophosphamide to 180mg/m2 IV weekly with stable dose Kyprolis 20mg/m2 IV weekly and Dex amethasone. Discussed with Dr. Benavidez at --he would support holding therapy and observation if persistent cytopenias and consider bone marrow biopsy. For now will continue monthly followup and myeloma labs every 1-2 months. She may be a candidate for bispecific antibody in the future if refractoryor intolerant of current therapy. Echo stable cardiac function EF 55-60%. She agrees with this plan. Covered with Amoxicillin bid x [address] for recurrent headaches given her neutropenia.Will call with results and ENT consult if air fluid level on sinus CT. Moderate complexity 35 minute followup visit. --12/26/2022: Cyclophosphamide 180mg/m2 IV weekly, Kyprolis 20mg/m2 IV weekly, and Dexamethasone 20mg weekly on hold with last dose 12/04/2022 due to persistent cytopenias and sinusitis. She now has [id number] and platelets 37,000 without bleeding. Relatively stable lambda light chains in 40s range. I will hold therapy another 2 weeks, give Augmentin 875mg bid x 2 weeks for persistent sinusitis (no airfluid levels on CT scan), and send referral to Dr. Benavidez for possible CD3/BCMA bispecific antibody therapy (risk of cytokine release syndromewith first dose, requires inpatient observation at a [...] first week due to risk of cytokine releasesyndrome). Nextfollowup with myeloma labs in 2 months, sooner prn. 30 minute moderate complexity followup. --02/18/2023: No active therapy since 12/04/2022--platelets have not improved. Continued uptrending kappa light chains (now 60s range). 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 Worsening right hip/leg pain--repeat PET/CT to determine if bony progression (plain film without obviouslytic lesion right hip/femur). Will set up IR guided bone marrow biopsy to evalwhether persistent cytopenias due to progression vs. therapy related MDS. Hold Kyprolis/Cytoxan and if no progression or MDS on bone marrow biopsy, we will resume lower dose Cyclophosphamide 120mg/m2 IV weekly,Kyprolis 20mg/m2 IV weekly, and Dexamethasone 20mg weekly. [...] cells in addition to a 12% atypical clonalB-cell population on flow cytometry. Given her hypocellularity and low percentage of plasma cells despite increasing lambda light chains onperipheral blood, we will continue to hold her cyclophosphamide, Kyprolis, and dexamethasone. She did receive 1 infusion of IVIG in early January mainly due to recurrent sinusitis but has not required any active antibiotics. This also did not improve her platelet count which is still 28,000. Due to hypocellular marrow wewill send methylmalonic acid and homocystine to assess [...] if new issues arise. High complexity 45-minute visit for review of bone marrow biopsy, imaging, complex medical testing, discussion of plan. --06/10/2023: Stable right hip pain and neuropathy. Off active therapy with cyclophosphamide, Kyprolis, and dexamethasone since 12/2022. Platelet count still 28,000 without active bleeding. Hemoglobin stable at 10 but worsening [id number] with ANC 1000. Rising lambda light chains [...] 3 months. Moderate complexity 35 minute followup. (2) Bone marrow hypocellularity Hypocellular for age with 10% cellularity. Nutritional work-up as noted above. No vitamine deficiencies noted. We will try to defer repeat bone marrow biopsies as long as we can given her light chainmyeloma. 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 I previously reviewed her outpatient records from [facility] [place], including review of notes, laboratories, and prior bone marrow biopsy 13 years ago. 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 Most recent platelet count is relatively stable at 54,000 but no clinical bleeding. She waspreviously referred to weight reduction clinic and may have slow improvement of steatohepatitis with lifestyle modification. Unless she has active bleeding or planned surgery, we will continue observation during treatment of active myelomato commence next month as noted above. --Agree with recommendation for EGD surveillance for varices (last was 09/2018--negative). This will be deferred during current COVID-19 epidemic. --Prior vitamin B12 and folic acid are normal, for known history of neuropathy. As noted above, I reviewed the negative M spike on serum protein electrophoresiswith immunofixation, but positive for Bence Murray protein on urine protein electrophoresis. Her Quantitative immunoglobulins IgG, IgA, and I gM were all within normal limits, however her serum kappa lambda light chain analysis showeda predominance of lambda light chains. --Previous labs for lupus anticoagulant with DRVVT, hexagonal phase phospholipid, anti-cardiolipin IgG and IgA, and beta 2 glycoprotein IgG and IgA were within normal limits. --Evaluated in ED November 2019 for epistaxis which resolved. Platelet count wasstable at 12/28/2019 follow-up. She continues surveillance with liver clinic at [facility] and I will continue to follow her every 6 months, sooner if newbleeding issues arise. --04/02/2020: We reviewed informed consent for Daratumumab/Velcade/Dexamethasone for active myeloma therapy. I requested prior liver biopsy results and notes from liver clinic at [facility]. Platelet count in 40,000 range but patient has had no active bleeding following infusion port placement 03/22/2020. --08/13/2020: Cycle 6 week 2 toxicity check with improved thrombocytopenia 79,000 range with no bleeding. We will continue current dosing with Velcade 0.7mg/m2 sq (now once weekly), dexamethasone 20 mg weekly, and full dose daratumumab with close follow-up of liver function and platelet counts. --09/24/2020, 01/21/2021, 03/28/2021: Platelets stable 60-70,000 with no new toxicities, started Daratumumab maintenance 10/02/2020. --04/24/2021: Platelets now down to 57,000 with rising lambda light chains. Will eval with repeat bone marrow biopsy due to nonsecretory myeloma. --05/24/2021: Bone marrow hypocellular without significant myeloma progression. Normal B12/folate stores, continue Daratumumab maintenance. --08/16/2021: Persistent thrombocytopenia in 50,000 range, consider change in therapy due to risinglambda light chains. Will check echo and review case withErna Benavidez at to discuss next line of therapy. --08/30/2021: Stable platelets--decision to resume weekly Daratumumab 16mg first 3 cycles and change to Revlimid 5mg daily 1-21 each 28 day cycle--titrate as tolerated --09/20/2021: Platelets have declined to 40-50,000 range without mucosal bleeding. Held Revlimid atplatelets 42,000 during sinus infection, resumed after one week off. Will follow weekly CBCs on Daratumumab/Revlimid. --12/18/2021, 01/22/2022: Platelets still in the 50,000 range without mucosal bleeding. Current dosing of daratumumab every 2 weeks and Revlimid 5 mg daily 2weeks on 2 weeks off--plan to change to pomalidomide 3 mg daily next cycle. -- 02/19/2022: Last week platelets were 48,000 and we held Revlimid. This week platelets 58,000 but continuing to hold Revlimid due to change to daratumumab 16mg/kg IV every 2 weeks with pomalidomide 3 mg daily days 1 through 21 every 28-day cycle -- 03/19/2022: Platelets were down to 41,000 and we held daratumumab as well as Pomalyst for rash asnoted above. Resume Pomalyst at 2 mg days 1 through 21 every 28 days. Continue daratumumab 16 mg/kgevery 2 weeks. -- 04/09/2022: Platelets down to 40,000. Okay to give daratumumab 16 mg/kg IV every 2 weeks but Pomalyst dose will be changed to 2 mg days 1 through 14 every 28 days. Follow-up 1 month. -- 05/07/2022: Platelets 48,000. Continue monthly daratumumab 16mg/kg IV with same Pomalyst dose 2mg daily D1-14 every 28 days. Extend next follow-up with kappa/lambda light chain ratio to 2 months. --07/10/2022: Platelets 53,000 with ANC now 600 (held Pomalyst one week for ANC 300). May have one dose Pomalyst today, then hold for change in therapy. Will have platelet transfusion as needed for change in therapy to Kyprolis/Cytoxan/Deamethasone. --08/20/2022: Platelets declined to mid 30,000 range about 4 weeks ago--now up to 56,000 and WBC 1600 and ANC 1000 on Kyprolis/Cytoxan/Deamethasone. No activebleeding. Continue current dosing and f/uin 3 weeks. --09/17/2022: Platelets at 43,000 without recent transfusion. WBC and ANC at 1.4and 600 respectively. Will continue with treatment. --10/15/2022: Platelets at 49,000. No s/s of bleeding. Ok for treatment. --10/29/2022: Platelets at 31,000 with ANC 400. Dose reductions recommended asnoted above. No active bleeding. Follow-up 6 weeks. --11/26/2022: Platelets at 40,000 with ANC 700. Dose reduction cyclophosphamideonly as noted above. No active bleeding. Follow-up 4 weeks. --No chemo since 12/04/2022. Platelets 37,000-->68,000. --02/18/2023: Platelets still 35,000. Sending for IR guided bone marrow biopsy. Will continue to hold chemotherapy until bone marrow biopsy review in 3 week. We may resume with cytoxan dose reduction if no progression or MDS. She may be a future candidate for bispecific antibodies for multiple myeloma. Still has nobleeding. -- 03/11/2023: Platelets have now declined to 28,000. She had increased bruisingaround the site of her bone marrow biopsy [...] above--await second opinion from Dr. Lindquist tomorrow. (4) Cancer-related pain Improved symptoms after palliative radiation to bilateral hips--one dose 02/07/2020, radiation to right hip . Will continue to follow on myelomachemotherapy. Extensive, but stable bone involvement on F-18 PET/CT 12/2020 and 04/2021. Recent increased left neck and shoulder pain. Increased oxyco done dosing to three times daily, no unusual right hip pain is noted above--followed by palliative medicine. -Completed right hip radiation with persistent but improved pain--no new pain issues with follow-upvisit with radiation in early March 2022, follow-up as needed. Will continue to follow with palliative medicine. --02/18/2023: Worsening right hip pain--pending PET/CT for restaging as noted above, f/u 3 weeks. -- 03/11/2023: No change in uptake in the right hip on PET/CT. Following with palliative medicine. No indication for reirradiation to right hip unless refractory to medication therapy. No change in symptoms at 06/10/2023 followup. 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 She wasreferred to [facility] to attempt weight reduction through diet and exercise that may prevent further fatty infiltration that may further impairher liver function. [facility] hepatology discussed liver transplant but sheis likely no longer a candidate for this given active myeloma. We chose least hepatotoxic regimen for treatment of her active myeloma with 50% dose reduction of Velcade. Liver function remained stable since start of therapy 04/10/2020. --Requested prior liver biopsy and [facility] liver clinic records. Dose reduction 20% Kyprolis due to KAPADIA with cirrhosis (normal bilirubin and transaminases). Stable LFTs on current Kyprolis/Cytoxan/Dexamethasone therapy (on hold since 12/04/2022). (6) Encounter for coordination of complex care Initial Daratumumab maintenance tolerated well without significant toxicities. Bone marrow biopsy did not reveal indication for change in therapy. --09/04/2021: Repeat loading with weekly Daratumumab 16mg first 3 cycles and changed to Revlimid 5mgdaily 1-21 each 28 day cycle--02/19/2022 reviewed informed consent to change to pomalidomide next cycle. --03/19/2022. Pomalyst was stopped after 1 week of therapy on 03/13/2022. Daratumumab held 03/19/2022 due to platelet count 41,000. We resumed both medications on arrival of dose reduce Pomalyst 2 mg days 1 through 21 every 28- day cycle. -- 04/09/2022: Daratumumab is monthly maintenance. Mid July: last dose Pomalyst 2mg today with ANC 600. -- 07/30/2022: Changed chemo to Kyprolis/Cytoxan, normal baseline Echo. -- 10/29/2022: Dose reductions for cytopenias Carfilzomib 27-->20mg/m2 IV weekly, Cyclophosphamide 300--240mg/m2 IV weekly, and Dexamethasone 20mg IV/po weekly. Will continue every 3 week therapy until progression or intolerable toxicity. --11/26/2022: Platelets at 31,000 with ANC 400. Dose reductions Carfilzomib 27-->20mg/m2 IV weekly, Cyclophosphamide 300--240-->180mg/m2 IV weekly, and Dexamethasone 20mg IV/po weekly. Therapy on hold since 12/04/2022 for cytopenias and sinusitis. Continue to hold 02/18/2023 pending bone marrow biopsy. -- January 2023: 1 dose IVIG 0.4 mg/kg due to recurrent sinusitis. No improvementof platelet count. -- 03/11/2023: Bone marrow biopsy with 10% cellularity, 4% plasma cells. Decision to continue to hold carfilzomib/cyclophosphamide/dexamethasone and work-up for nutritional etiologies. --06/10/2023: Continue observation off chemotherapy x 6 months. Second opinion with Dr. Lindquist [facility] (virtual consult tomorrow). - Chemo Plan Chemo Plan (Dose, Rate, Freq): Active chemotherapy on hold since 12/05/2022 due to persistent thrombocytopenia. Goal of Treatment: Palliative - Time with Patient Time Spent with Patient (Follow Up Visit): 35 minutes - Moderate complexity--review symptoms and labs, continue to hold therapy, second opinion virtual visit [facility] Coordination of Care & Counseling Time: Greater than 50% of time spent with patient was for coordination of care (as documented) and [id number] counseling of patient and/or family. Dictated By: Fabiola Marinelli MD DD/ [id number] Signed By: <Electronically signed by MD Fabiola Marinelli> 06/10/231935 [facility] Work Phone: Progress note Author Fabiola Marinelli [facility] July 08, 2023 1:34pmNote Date/TimeSept2022 10:53[facility] [place] [address] Hem/Onc Follow Up Note - OP Signed Patient: Mojgan Pérez MR#: [id number] : 1955 Acct:[id number] Age/Sex: 67 / F Type: REG RCR Copies to: MD Yinka Downey MD Dr. Koen van Besien~ Subjective Date/Time of Service: Date of Service: 07/08/2023 Time of Service: 10:53 Chief Complaint: Patient is here for a 1 month follow up visit follow up visit for multiple myelomaand go over labs HPI: 07/08/2023: Mojgan had her virtual consultation with Dr. Lindquist of [facility] on 06/26/2023. He had discussed treatment optionswith her given her worsening cytopenias and generalized pain and fatigue. Possible by specific monoclonal antibody therapy versus CAR-T therapy. He also remarked that her prior bone marrow biopsy may have underestimated the degree ofher myeloma since it may have been performed at the site of prior radiation. [facility]will [facility] to evaluate her in person and potentially consent her for 1 of these therapy options. I did informthe patient that she may require repeat bone marrow biopsy at that time. W e arecontinuing to hold her active therapy with Kyprolis and Cytoxan due to persistent cytopenias, most recently her white blood cell count is 1600, absolute neutrophil count 800, platelet count 26,000. Although she does have extremity bruising she does not have any concerning bleeding from any orifice and has not had any active infection. She will follow-up with me tentatively in3 months with CBC, CMP, and myeloma labs transfer her care to Dr. Lindquist forfurther therapy at [facility]. It is possible that if she tolerates antibody treatment well that we may be able to transfer her therapy her low 35- minute follow-up for coordination of care with [facility]. 06/10/2023: Mojgan is unaccompanied today--scheduled to see Dr. Lindquist tomorrow but she noted a family emergency and feels she cannot travel there tomorrow. I contacted him and he agrees to changeto a virtual visit. Increased bruising but no epistaxis, mucosal bleeding, or bright red blood per rectum. No worsening of bone pain or baseline neuropathy. Platelets remain low30,000 to high 20,000 range. WBC 1700 with ANC about 1000. Uptrending lambda light chain now to 241. I asked Dr. Lindquist to evaluate for potential bispecific antibody therapy or CAR-T option for myeloma. I will continueto hold therapy for another month (last Kyprolis/Cytoxan given 6 months ago) and will f/u around 4-6 weeks to review recommendations from Dr. Lindquist and f/u myeloma labs. Moderate complexity 30 minute f/u. 03/11/2023: Mojgan is here for follow-up of bone marrow aspiration and biopsy performed in interventional radiology on 02/24/2023 as well as follow-up F-18 PET/CT. She has continued right hip pain andsaw nurse practitioner Pearl Holder the day after her bone marrow biopsy. She started oxycodone 10 mg 4 times daily as needed with continued gabapentin 400 mg on an as-needed basis. She previously received radiation to the right hip in July-August 2021 over 15 elapsed days--I am reluctant to repeat radiation to this area unless pain is refractory to oral medications. The PET/CT from 03/09/2023 showed relatively patchy abnormal radiotracer accumulation in the skeletal structures that similarto prior exam consistent with her multiple myeloma but no new areasof radiotracer accumulation. Theright hip uptake looks relatively stable from prior PET/CT in March 2022. The bone marrow aspirate and biopsy showed low cellularity for age about 10% with 4% clonal plasma cells by immuno chemistry and 0.7% of lambda mononuclear plasma cells on flow cytometry with a population of atypical CD10 positive B cells. She had presence of stainable iron stores 1+and no evidence of amyloid deposition. Her peripheral blood platelet count is now 28,000 and she does not have any active bleeding. She did have extensive bruising after her bone marrow biopsy. She has not had any recent infections and received 1 treatment with IVIG in early January. -- At this time I recommend holding active therapy for her myeloma given her cytopenias and plasma cells less than 10%. We will continue to follow CBC every2 weeks for her platelet count this month and if relatively stable continue CBC monthly. I will also send vitamin B12, folate, copper, ceruloplasmin, and iron panel to see if we can optimize her from a nutritional standpoint to improve herthrombocytopenia. This may also be due to her hepatic steatosis. Her next follow-up with me with myelomalabs to include quantitative immunoglobulins and kappa/lambda light chain analysis will be in 3 months or sooner as needed. Thisis a high complexity visit over 45 minutes for review of bone marrow biopsy and imaging results, discussion of continuing to hold further therapy (Kyprolis/Cytoxan last given December 2022), and plan nutritional labs with follow-up phone call with results. 02/18/2023: One month followup--still off active therapy with Kyprolis/Cytoxan past 2 1/2 months dueto persistent thrombocytopenia and initiation of IVIG for admission for urosepsis 01/28/2023. Despite off therapy, she has persistent low platelets 35,000 without bleeding. Uptrending kappa light chain to 60s. Notes recurrent right hip pain--I recommended repeating F-18 PET/CT to determine if bony progression with right hip/pelvis/femur film. Will also set up IR guided bone marrow biopsy--review results in 3 weeks and decide whether to resume active therapy. If lytic lesion at hip/acetabulum/femur concerning for potential fracture, will refer to orthopedics for possible prophylactic kenton. Mak contact from Dr. Benavidez for bispecific antibody therapy. Moderate complexity 35 minute followup. 01/09/2023: Here for followup after consult with Dr. Benavidez last week. Progress note is still pending, but we communicated by secure text regarding her evaluation. Myeloma labs are stable with mild increase of serum kappa from 40s to 60s range. Platelet count now to 68 and ANC 900 since holding Kyprol is/Cytoxan since 12/05/2022 for cytopenias. We decided to hold 2 more weeksthen resume Kyprolis at same dose 20mg/m2 and further decrease Cytoxan to 40% dose overall when we resume dose. Next line of therapy at progression may be CD3/BCMA myeloma bispecific antibody Teclistamab (needs to be hospitalized firstweek due to risk of cytokine release syndrome). Plan to resume likely in 2 weeks if adequate blood counts and no infection. F/u with myeloma labs (CBC, CMP, quant immunoglobulins and kappa/lambda light chains) in 2 months, sooner prn. Moderate complexity 30 minute followup. 12/26/2022: Mojgan continues to have nasal drainage sinus congestion and pain despite completing 2 weeks of amoxicillin and no air-fluid level on CT Sinuses 11/30/2022. We gave last dose of Kyprolis/Cytoxan (60% dose) on 12/05/2022. Peripheral neuropathy is stable, no diarrhea, no skin rashes. We reviewed her labs with ANC 900, platelets 37,000 and she notes easy bruising but no nasal/oral mucosal, GI or bleeding. I will again hold Kyprolis/Cytoxan another 2 weeks and give 2 weeks of Augmentin 875/125mg bid for her persistent sinus infection and Diflucan 100mg daily for vaginal candidiasis. Will formallyrefer back to Dr. Benavidez to see if she is a candidate for the CD3/BCMA myeloma bispecificantibody therapy which she would need to receive at [facility]. F/u with me in 2 weeks--if persistent cytopenias we may need torepeat her bone marrow biopsy (if now performed by Dr. Benavidez). She agrees with this plan over this 35 min moderate complexity followup visit. 11/26/2022: Mojgan is here for monthly followup on modified CYKLONE therapy. Notes increased frontal headaches over the past with with nasal congestion--sending for sinus CT and 2 week course of Augmentin bid. Platelet count recently dropped as low as 25-31,000 without bleeding (currently 40,000), WBC to 1300 with ANC 700. No current fever, chills or symptoms of infection. Prior dose reductions of Kyprolis to 20mg/m2 weekly with cyclophosphamide 240mg/m2 weekly). Echo with normal EF 55-60%. We will further dose reduce cyclophosphamide to 180mg/m2 (overall 40% dose reduction) and maintain Kyprolis at 20mg/m2. She has ongoing decline of lambda light chains over the past 6 months indicating response. I discussed her case with Dr. Piter Benavidez who notedtherapy could be held if worsening cytopenias. For now continue monthly followup with myeloma labs (quant immunoglobulins and kappa/lambda light chains). Bleeding precautions and f/u sooner if new symptoms arise. Moderate complexity 35-minute visit for review of complex labs and adjustment of chemotherapy regimen. 10/29/2022: I asked Mojgan to return today due to cytopenias on labs and discussion of either dosereduction or changing therapy. She notes that over the last 2 weeks she has had cough, body aches, worsening fatigue, but no fever. She was diagnosed with a non-COVID viral syndrome. Her symptoms arestarting to get better but she has more significant cytopenias with absolute neutrophil count of only 400 with total white blood cell count 1000. In addition her platelet count is 31,000 she has not had any active bleeding issues. We were unable to contact her to tell her not to come in for chemo but I decided to see her today since she was last evaluated by nurse practitioner last 2 visits. Hermyeloma labs show relatively stable lambda light chains which appear to have responded since start oftherapy in July. She is due for her echocardiogram and due to her cytopenias we will hold therapy today and plan 1 level dose reductions of both cyclophosphamide (from 300 to 240 mg/m2 IV weekly)with Kyprolis dose reduction (from 27 to 20mg/m2 IV weekly). She has been off therapy past 2 weeks due to cytopenias. If she is unable to resume therapy we may consider an alternate therapy such as Blenrep. She is otherwise in agreement with current plan of care. Moderate complexity 35-minute visitfor review of complex labs and adjustment of chemotherapy regimen. 10/15/2022: Mojgan is here for follow-up for her multiple myeloma on modified CYKLONE therapy. Shecontinues to do well and remains active at home. She deniesshortness of breath, chest pain, nausea,vomiting, diarrhea or constipation. Sheis eating and drinking well. No fevers, chills, sweats, bleed ing or rash. She does note mild tongue soreness and on exam it appears she may be developing thrush, very mild currently on the tongue only. We will prescribe nystatin for this. Labs are reviewed andstable overall, ok for treatment. She will follow-upin 4wks with Dr. Marinelli with repeat labs and treatment. 09/17/2022: Mojgan is here for follow-up on modified CYKLONE therapy for her multiple myeloma. Shecontinues with fatigue, but otherwise no new complaints. She has no s/s of infection, no shortness of breath, chest pain, n/v/d or other concerns. In review of her labs, her WBC are 1.4, ANC 0.6 and platelets 43,000. Per Dr. Marinelli, given no s/s of infection and she otherwise feels well, she is okfor treatment. We discussed signs to report related to infection such as fever, chills, etc. and she will call with any concerns. We will follow-up in 3wks withrepeat labs. 08/20/2022: Mojgan is here for 3-week follow-up on modified CYKLONE therapy (cyclophosphamide 300 mg/m2 IV weekly, dexamethasone 20 mg IV weekly, and carfilzomib now 56 mg/m2 IV weekly). Baseline echocardiogram 07/18/2022 showed normal ejection fraction 60 to 65%. I discussed her case with Dr. Benavidez who advised that despite her significant thrombocytopenia she should be treated withfull dose cyclophosphamide/carfilzomib and may support with transfusions as needed. The patient's lowest platelet counts were in the 30,000's after her first week of therapy but now is up to 56,000. She has not hadany clinical bleeding. She also has persistent leukopenia 1900 today with absolute neutrophil countnow 1000. At this point as long as she does not have any significantsymptoms of therapy or signs ofinfection or active bleeding we will continue her current dosing. She otherwise notes mild fatigue but no other toxicities. Prior skin rash on Pomalyst has resolved. She will follow-up in 3 weeks fortoxicity check with nurse practitioner and we will order her restaging myeloma labs with serum protein electrophoresis with immunofixation, quantitative immunoglobulins, and kappa/lambda light chain ratio. She may return sooner if new issues arise. Moderate complexity follow-up over 30 minutes to ad dress cytopenias on CYKLONE therapy. 07/10/2022: Mojgan is here for 2-month follow-up of myeloma labs. No changes in medical history and platelet count remains in the 40-50,000 range without bleeding. We held her Pomalyst (as well as daratumumab) this week due to absolute neutrophil count of 300 without any recent infections. She previously held it for 1 week due to neutropenia, took 1 tablet, then had to hold a second week due to neutropenia. We reviewed her kappa/lambda light chain ratio which continues to progress in the wrong direction (total lambda light chains now increased from 109 to 125.7 with ratio from 0.11 to 0.08). Her progressive cytopenias and worsening light chains likely reflects progression of myeloma. Wecouldrepeat her bone marrow biopsy but her most recent bone marrow biopsy on 10/09/2021 showed hypercellular bone marrow (30%) with slight megakaryocytic and granulocytic hyperplasia and only 1.5% plasma cells (Lambda restricted by flow cytometry). This likely would not change her current management and I discussedher case with Dr. Benavidez of malignant hematology who recommended considering carfilzomib (Kyprolis) with cyclophosphamide. I will contact patient to coordinate baseline echocardiogram forKyprolis and likely she will require dosereductions for her underlying hepatic dysfunction and chronic cytopenias. AfterI reviewed dosing with Dr. Benavidez and pharmacy and review her echocardiogram, jayne coordinate follow-up for change in therapy and chemotherapy consent. For now we will continue daratumumab with altered dose of Pomalyst to 2 mg twice weekly ( and Mondays) until change in therapy. I will not likely send dose reduction of Pomalyst due to planned change in therapy. Moderate complexity 35 minutes for coordination of care. 05/07/2022: Improved rash on 2 mg of Pomalyst, now mild pruritus. Platelet count is 48,000 without bleeding issues. Continues weekly prednisone. Daratumumab isnow monthly since early April. Repeat kappa/lambda light chain ratio slightly higher (106 to 109) But the upward trend is starting to flatten out. F-18 Axumin PET/CT shows no new lesions, relatively stable from 1 year ago. For now given her stable symptoms and pronounced cytopenias, we will continue her current dosing daratumumab/Pomalyst/dexamethasone. Next follow-up with me in 2 months. She will return sooner for issues arise. Moderate complexity visit over 35 minutes. 04/09/2022: Mojgan continues every 2-week durvalumab with Pomalyst now 2 mg daily (dose reduced due to diffuse rash). She is now day 14 of the cycle and isnoted to have platelet count of 40,000 (no associated mucosal bleeding, bright red blood per rectum, or hematuria). No recurrent rash on this dose. She continues her weekly prednisone. I recommended changing her schedule of Pomalyst to 2 mg daily for days 1 through 14, off days 15 through 28 cycle and continuing daratumumab. Her most recent immunoglobulins have shown a steady trend upward for lambda light chain and decrease of kappa/lambda light chain ratio, however since she is now stabilizing her dosing of daratumumab/Pomalyst/dexamethasone I recommend continuing her current dosing for1 more cycle with repeat kappa/lambda light chain ratio in another month. In addition I will set her up for F-18 Axumin PET/CT to compare to PET/CT from 1 year ago (her skeletal survey showed no lesions 6 months ago). She denies any current bone pain.She will proceed with daratumumab dose as previously orderedtoday. 03/19/2022: Mojgan is here for follow-up after adverse cutaneous reaction to her first cycle of Pomalyst. She noted that after starting her first dose of Pomalyst 3 mg daily on 03/05/2022 that about 1 week later on 03/13/2022 she had a diffuse rash all over that was pruritic with increased erythema. She did not have nausea, vomiting, constipation, diarrhea, dyspnea, or any other adverse reactions. She did have a decline of platelet count to 41,000 this week which may be due to her Pomalyst. She called the pharmacy and was instructed to discontinue Pomalyst on 03/13/2022. Her rash has mostly resolved with no furtherpruritus but she still has a few macular lesions over the legs. She has been using Benadryl and topical cortisone cream with improvement of the rash. Otherwise her laboratories are stable. She does have an increased kappa/lambda light chain ratio from 03/05/2022 but this was her first day of therapy. I recommended resuming Pomalyst at next dose level 2 mg daily as soon as new medic ation arrives for 3 weeks on 1 week off. If she has recurrent rash she will again stop and we will consider further dose adjustment. Due to her thrombocytopenia we will hold her daratumumab today andconsume with first day of Pomalyst next week. She may follow-up in about 3 to 4 weeks, possibly with juanito gonzalez covering at that time. Patient expressed understanding. 02/19/2022: Mojgan is here for follow-up--no new symptoms but her platelet countdropped to 48,000 last week and we are again holding her Revlimid. She has not had any bleeding or infection recently, but she has had uptrending lambda light chains and we discussed changing her therapy from lenalidomide to pomalidomide and continuing her daratumumab which is currently every other week. Her only other concern is constipation which is likely related to her pain medications. ANC was 800 today. --Today we reviewed chemotherapy counseling for lenalidomide in combination withdaratumumab/dexamethasone (stopping Revlimid). Common toxicities were reviewed to include allergic reactions, myelosuppression, thrombosis, fatigue, nausea, vomiting, constipation, diarrhea, mouth sores, and risk of secondary malignancies. Other toxicities may include pneumonitis, neurologic, hepatic andrenal toxicities. The patient signed informed consent and will follow-up as directed. Planning a trip to [place] on March 06, therefore we will hold Revlimid until arrival of her pomalidomide, then have oral chemotherapy visit. We are starting pomalidomide at 3 mg daily days 1 through 21 every 28 days due to baseline liver dysfunction. Follow-up cycle 1 week 2. We will recheck her baseline myeloma labs on start day of pomalidomide with daratumumab. 01/22/2022: Mojgan has no new complaints. She was seen by Dr. Benavidez at for evaluation for transplant and CAR-T options but given her profound thrombocytopenia, neither of these options are felt tuyet optimal for her. She has had gradual worsening of her lambda light chains without any change of r enalfunction or hypercalcemia. Her chronic thrombocytopenia has remained in the 40-50,000 range which is lower than her prior baseline. I reviewed her options with Dr. Benavidez and it is difficult to assess best options due to her chronic thrombocytopenia but standard of care at this point would be tocontinue her daratumumab and transition from the lenalidomide to pomalidomide. We will follow closely with weekly CBCs to determine if thrombocytopenia worsens on thisregimen. I will defer changing her regimen for 1 month since she is starting a new cycle of lenalidomide and has had slow progression of her lambda light chains. She will return in 1 month and will discuss pomalidomide and signed inf ormed consent. Patient is in agreement with this plan. 12/18/2021: Mojgan is here for 3-month follow-up. She has not had any significant changes in medical history other than testing positive for coronavirus infection in early November 2021. She has not been immunized for coronavirus. She notes persistent fatigue but no bone pain. No other recent infections or bleeding episodes. She recently changed from weekly to now every 2 weeks daratumumab 16 mg/kg and remains on low-dose lenalidomide 5 mg daily for2 weeks on 1 week off due to prior thrombocytopenia worsening. October 2021 skeletal survey showed no osteolytic lesions suggestive of myeloma. Initially she had improvement of her platelets to 70-100,000 but today platelets are down to 54,000. She also had some improvement of leukopenia but this is again down to 2800 with ANC 1300 today. Urinerandom M spike is not observed, but she has had progressive increase of her lambda light chains from 30 in December 2020 to 60.2 in October 2021. [place] lambda ratio has also started to decline to 0.21 in October 2021. For now I'm continuing her daratumumab with Revlimid at current dosing, but I contacted Dr. Benavidez at [facility] for CAR-T cell eligibility. If he has recommendations to change her therapy, I will let her know. Otherwise I will have her follow-up with me in 1 month (she will have repeat myeloma labs 1 week prior to visit). 09/20/2021: After telephone consultation with Dr. Benavidez at , we resumed repeat loading doses of weekly daratumumab 16mg/kg and changed to low dose lenalidomide 5mg daily. She has had 2 courses of antibiotics for sinus infection over the past month and was noted to have neutropenia with ANC 900, platelets 44,000 week 2 of Revlimid, therefore this was held for one week and resumed Thursday after ANC returned to 1000. Platelet counts have persisted at 40-50,000 range without active bleeding. Otherwise tolerating therapy well. Still improved hip pain and ambulation after recent course of palliative radiation therapy. For now we will continue Daratumumab with Revlimid and Dexamethasone as ordered with weekly CBC. Gradually increasing lambda light chains--pending evaluation at for CAR-T celltherapy eligibility (has not yetbeen contacted for appointment). 4 week f/u with me with CBC, CMP, and myeloma labs (follow quant immunoglobulins and [place]/Lambda light chain ratio with skeletal survey in 2 weeks so results available for appointment). 08/30/2021: Mojgan is here for 2-week follow-up for completion of her palliative radiation therapywith significant improvement of pain in her right hip and pelvis. We sent her for echocardiogram performed 08/23/2021 at [facility] [place] as baseline for possible Kyprolis therapy. This returned with ejection fraction 60% which is normal with grade 1 left ventricular diastolic dysfunction and 1+ tricuspid valve regurgitation and trace to 1+ aortic valve regurgitation.Otherwise unremarkable. I discussed her case with Dr. Benavidez of malignant hematology at [facility]. He advised against Kyprolis therapy given her underlying liver dysfunction and recommended repeating loading doses of daratumumab weekly as well as low-dose lenalidomide which we will start at 5 mg daily since she has chronic thrombocytopenia. We will send for CAR-T therapy as a possible therapeutic option. The patient agreed with changing daratumumab to weekly and we will haveher sign consent next week for change to low-dose lenalidomide therapy. Next follow-up with me will be in about 2 weeks for week 2 lenalidomide with daratumumab. 08/16/2021: One month followup, she recently completed palliative radiation therapy to right hip and pelvis. Platelet count still in 50,000 range with increased bruising but no bleeding. Still has some pain in right hip but slowlyimproving after radiation therapy. Slowly worsening lambda light chain --she is scheduled for ECHO next week. We discussed possibly changing therapy from Daratumumab, Velcade, Dexamethasone to Kyprolis, low dose lenalidomide, dexamethasone if adequate cardiac function. I will discuss this with Dr. Benavidez for dosing and determine if CAR-T therapy is another possible option (although we may be limited due to chronic thrombocytopenia and liver disease). Followup 2-3 weeks to review results and possible consent for change in therapy. 07/17/2021: 2-month follow-up on multiple myeloma. She reports that Thursday she developed severe painin the right leg that started proximal to the knee creating it to the hip. She had increased pain with weightbearing on the right and has been using a walker at home secondary to this. She did not feel a pop or shift in ambulation, but has been using her Percocet for pain control at home. In reviewing her laboratories platelet count remains in the 52,000 range and she is otherwisPe tolerating daratumumab well. I recommended sending for right hip, femur, and knee plain film imaging that did not show any fracture. She does have a gradually rising lambda light chain but no other significant changes in her labs. I reviewed her case with Dr. Cheng of orthopedic surgery who also reviewed her prior PET/CT showing uptake in this area. We will obtain a right hip MRI, keep her completely nonweightbearing on the right leg with walker for transfers and she has an urgent orthopedic follow-up following her MRI. I will follow-up with her in 1 month to review management and we will determine if she requires prophylactic kenton for stability of the hip based on herMRI. 05/24/2021: Here to followup 05/03/2021 bone marrow biopsy--noted to have decreased cellularity 25%, flow cytometry with 0.2% plasma cells and a 1.5% monoclonal B- cell population. FISH showed 13q and 1qabnormalities but normal cytogenetics. No myelodysplasia seen. I reassured her that recent thrombocytopenia is more likely related to splenic sequestration from liver disease and not worsening myeloma. For now continue current regimen. Will alsorecheck B12, folate, and iron profile with next labs--followup in 2 months with myeloma labs, sooner prn. 04/24/2021: 1 month followup to review PET/CT. Over the past 2 days, she notes episodes of sharp left sided neck pain over sternocleidomastoid muscle and mastoid area. No radiculopathy down left upperextremity. No new side effects of Daratumumab. F18 PET/CT shows largely unchanged diffuse uptake through multiple bony sites in axial and articular skeleton. Lambda light chains risingover past 2 month and decline of platelet count to 57,000 without bleeding. MRIof thoracic spine did not show significant thoracic canal stenosis. Due to worsening neck pain with extensive uptake on F18 PET/CT--we will send for cervical MRI. Palliative medicine has increased Percocet to tid. We will repeat bone marrow biopsy due to rising lambda light chain and falling platelet count to determine if progression of myeloma noted. This will be scheduled in the next 1-2 weeks. 03/28/2021: 2 month followup for multiple myeloma. More recently notes neck andleft shoulder pain. Fatigue and constipation stable. Labs show stable anemia and thrombocytopenia. Serum M-spike now asymmetric gamma (no quantifiable spike). Slowly improving IgG to near normal. [place]/lambda light chain ratio normal with mildly increased lambda light chains. MRI of thoracic spine for evaluation of increasing left shoulder pain. For now we will continue current dosing of Daratumumab and recheck F18 PET/CT for response in late April 2021. 01/21/2021: Mojgan is accompanied by her daughter for 2 month followup--now Daratumumab maintenance. She notes persistent fatigue and recently added as needed laxatives to stool softener for management of constipation. Persistent left hand pain--correlates to an area of bone uptake on PET/CT. Overall F18 PET/CT appears stable with no new areas if FDG avidity (still extensive bone FDGuptake). We reviewed prior plain xrays of left hand from November--she agrees toevaluation by orthopedic surgery (determine if biopsy or steroid injections). M-spike and kappa/lambda light chains pending. CBC (platelets 60-70,000); CMP stable. Will followup in 2 months with exam and labs. 11/26/2020: Mojgan is accompanied by her daughter for 2 month followup--now Daratumumab maintenance. Stable leukopenia/low platelet 70,000. Notes 3 days of hematuria and mild dysuria. Sending UA and possible culture. Otherwise no new bone pain. Blood sugars stable. M-spike and kappa/lambda light chain ratiostable. Next f/u 2 months after one year f/u PET/CT to determine response to therapy. 09/24/2020: Mojgan presents (accompanied by her daughter) for cycle 8, week 2 followup [id number] mg/kg IV weekly, Dexamethasone 20mg weekly, and Velcade 0.7 mg/m? now sq once weekly for every 3-week cycle (21 days). She notes neuropathy symptoms are stable. Tolerating therapy well without fatigue. No bleeding and thrombocytopenia stable in 60-70,0000 range. On 10/02 she will be due for maintenance therapy with Daratumumab alone once per month. I will f/u with her in 2 months with myeloma labs, sooner as needed. Velcade and Dexamethasone will be stopped after 8 cycles. 08/13/2020: Mojgan is here for cycle 6, week 2 (day 14) daratumumab 16 mg/kg weekly, Velcade 0.7 mg/m? now sq once weekly for every 3-week cycle (21 days), and dexamethasone 20 mg weekly. No new symptoms--improving thrombocytopenia to 79,000 and improved leukopenia. 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 Still has improvement of M-spike, IgA normal and decreased lambda light chain and K/L ratio. We discussed that week 25 in Oct she will change to monthly daratumumab with weekly Velcade (1mg/m2) and Dexamethasone. Continue to follow every 6-8 weeks until maintenance schedule. 06/18/2020: Mojgan is here for cycle 3 week 3 (day 21) daratumumab 16 mg/kg weekly, Velcade 0.7 mg/m? now sq once weekly for every 5-week cycle (35 days), and dexamethasone 20 mg weekly. Tolerating well with stable leukopenia and thrombocytopenia. Mild increased symptoms of hand and foot neuropathy, but no limitation in activity. Now following with diabetes management clinic with variable glucosecontrol. We reviewed lower IgA (now M-spike IgG kappa after Daratumumab--previously IgA lambda). Lambda light chain has decreased from 516 to 41.3 to now 18.5 with normalization of K/L ratio. Continue followup myeloma labs in 6 weeks, visit in 8 weeks. 05/21/2020: Mojgan is here for cycle 2 (week 7 overall) daratumumab 16 mg/kg weekly, Velcade 0.7 mg/m? now sq once weekly for every 5-week cycle (35 days), and dexamethasone 20 mg weekly. Tolerating well with stable leukopenia and thrombocytopenia. No significant neuropathy. Noted to have improvement in lambda light chains. No further daratumumab infusion reactions. No infections,stable constipation, pain control improved. No other complaints. Continue monthly f/u with myeloma labs. --Diabetes management--added insulin on dexamethasone days. Hyperglycemia improving. 01/18/2020 (phone followup)--The patient's son was available by phone and her daughter was contactedin a separate phone call as patient presented unaccompanied due to COVID-19 precautions in our clinic during the current epidemic. Bone marrow biopsy results were reviewed as follows from procedure pe rformed 01/26/2020: --Bone marrow biopsy was suboptimal for evaluation. --Increased lambda light chain restricted monoclonal plasma cells (1.9% by flow cytometry, approximately 6% and aspirate count, but 50% by immunohistochemical stains [id number]). Sideroblastic iron present, negative for ring sideroblasts. Peripheral blood smear with mild red blood cell anisocytosis and polychromasia, leukopenia with absolute neutropenia (1000) and thrombocytopenia (54,000) consistent with prior baseline. Note: I discussed the results with Dr. Crook 01/26/2020. Preliminary findings were also discussed with Dr. Cummings 01/27/2020. Morphologic findings, immunohistochemical stains, flow cytometry, and ancillary studies may under represent the extent and severity of disease. The results of FISH myeloma panel with prognostic markers and cytogenetic analysis are pending. --Given the patient's hip pain and presence of lytic lesions, she meets clinicalcriteria for activemyeloma. Given her hip pain and lytic lesions in weightbearing areas she was offered radiation therapy. She had a limited course of hypofractionated palliative therapy to bilateral proximal femurs 02/07/[address] Ahn. We discussed that given the COVID-19 epidemic and absence of other significant changes other than bony lesions (normal renal function, normal calcium, stable cytopenias), I would defer active therapy for myeloma for 4 to 6 weeks. Since she has significant history of liver disease I will discuss her case with Dr. Piter Benavidez at [facility] malignant hematology for optimal regimen. The patient is not a transplant candidate given hernonalcoholic steatohepatitis and chronic thrombocytopenia but may be a candidate for either doublettherapy (Revlimid/dexamethasone) or triplet therapy with either Velcade/Revlimid/dexamethasone or daratumumab/Revlimid/dexamethasone. --02/03/2020: Mojgan presented unaccompanied for follow-up of bone marrow aspiration and biopsy performed by Dr. 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 The patient had been noting increased left hip pain over the past several months andplain films of the pelvis and bilateral femurs did show subtle lucencies in the bilateral proximal femurs corresponding to PET/CT findings but no other additional sclerotic lesions identified. No pathologic fractures were seen. --03/05/2020: Mojgan notes improvement of bilateral hip pain since radiation. No other changes in medical history in the past month--no infections, normal renal function, no hypercalcemia. Stable platelet counts without bleeding. Shewas given written literature regarding Dexamethasone, Velcade (thatwould be dose reduced to 0.7mg/m2 twice weekly), weekly Daratumumab and Revlimid, but I will defer decision of which regimen to use until discussion in malignant hematology tumor board. Also referring for infusion port placement prior to initiating therapy. Sign informed consent prior to initiating therapy. --Discussed with Dr. Benavidez who favors Daratumumab combination--will request prior liver biopsy and records from [facility] liver clinic. The patient and her son (by telephone) expressed understanding and will follow- up as directed in 2 weeks for consent and likely start of therapy. --04/02/2020: Mojgan presents after infusion port placement at [facility] by interventional radiology due to platelet count 40,000--she had increased bruising at site post procedure, but this has completely resolved. Her hip painis well controlled since completion of palliative radiation and no newareas of pain. She has previously reviewed information regarding Daratumumab (first dosesplit 8mg/kg IV D1,D2, then if well tolerated 16mg/kg IV weekly), Velcade at about 50% dose (for liver dysfunction) 0.7mg/m2 D1,D4,D8, D11, and [id number] IV weekly--repeat for every 3 week cycles 1st 3 cycles. She will take chemo class and likely start therapy within 2 weeks with toxicity visit in 3 weeks. Today we reviewed chemotherapy counseling for Daratumumab, Velcade, and Dexamethasone. Common toxicities were reviewed to include infusion reaction including rash/dyspnea/wheezing, myelosuppression, fatigue, nausea, vomiting, constipation, diarrhea, mouth sores, and alopecia. Other toxicities may in cludepneumonitis, neurologic, thromboembolism, hyperglycemia, hepatic and renal toxicities. The patient signed informed consent and will follow-up as directed. --04/19/2020: Mojgan is here for cycle 1 week 2 daratumumab 16 mg/kg weekly, Velcade 0.7 mg/m? twice weekly for first 2 weeks of every 3-week cycle, and dexamethasone 20 mg weekly. She did have an infusion reaction with first daratumumab with dyspnea and flushing but this improved after first dose and shehas not had recurrent infusion reactions. We have continued Velcade despite platelet counts in the 40,000 range without bleeding as we know that her baseline platelet counts remain in this range and she has not had any significant change from her baseline. Dexamethasone has caused hyperglycemia with blood sugars up to 400 and we are referring to diabetes management clinic. Otherwise she denies any significant nausea, emesis, fever, chills, night sweats, constipation, diarrhea, rash, mouthsores, or alopecia. She has not had any change of baseline neuropathy. Liver function tests remain stable. She notes that her hip pain is well controlled since prior palliative radiation and she saw radiation oncology earlier this week with no new recommendations. I will send her myeloma labs including serum and urine protein electrophoresis, quantitative immunoglobulins, and serum kappa/lambda light chains in 2 weeks andfollow-up with her in 3 weeks. She may be seen sooner if new issues arise. This is a 67-year-old lady on chronic disability has a history of arthritis, diabetes mellitus, hypertension, COPD, GERD, and fibromyalgia [facility]. She states that she was followed with Dr. Kumari prior to his senior care and was told that she had an elevated protein level as well as thrombocytopenia but never had clinical bleeding. She is 4 para4 without complicationsand was never told that she was thrombocytopenic while . She is had multiple prior surgicalprocedures without any clinical bleeding. She had been recommended for a pain procedure with Dr. Wilson but he declined to do the procedure because her platelet count was less than 100,000. For this reason she received 2 platelet transfusions, with little improvement of her platelet count and her second transfusion resulted in throat tightening due to allergy to platelets . She has never beentreated with steroids and has never been told that she has immune thrombocytopenia. She has mild leukopenia with relative neutropenia, absolute neutrophil count of 400-800 and mild lymphocytosis. Hemoglobin is normal. She has not had any bright red blood per rectum or epistaxis. She has no history ofbleeding within the family however does have a mother and sister diagnosed with colon cancer, a brother diagnosed with lung cancer, and another sister diagnosedwith breast cancer. She had prior pain in the right hand mainly at the first MCP joint with some associated swelling and right foot pain and was evaluated by podiatry. She was told that her blood tests were negative forgout. She had screening with MALLORY, CCP, and rheumatoid factor all of which were negative. She says that she previously saw Dr. Petersen for cirrhosis but did not know of any specific therapy. We reviewed these findings from her liver ultrasound ordered by Dr. Benavidez Summer 2016. Initial consultation with me March 16, 2017. --The patient has been followed by me for some time for diagnosis of smoldering myeloma with a prior bone marrow biopsy May 2017 showing 15% plasma cells but the patient remained asymptomatic without bone pain or other CRAB criteria for therapy. She is also noted to have an ascending aortic aneurysm and has chronicliver disease with cirrhosis secondary to nonalcoholic steatohepatitis. She haschronic thrombocytopenia without bleeding ranging from 50-100,000 this is felt to be due to sequestration from her nonalcoholic steatohepatitis. She was previously on a liver transplant list but was recently notified that she is no longer a candidate for liver transplant. She has had chronic pain from f ibromyalgia but noted increasing bilateral hip and upper thigh pain over the last 6 months. She also is followed for EGD/colonoscopy with last documented procedure 09/21/2018: 1. Normal EGD, 2. Mild sigmoid diverticulosis, 3. Internal hemorrhoids, grade 2, 4. Anal fissure with active bleeding cauterized by bipolar cautery Bone osseous survey in June 2019 showed osteopenia and degenerative changes but no lytic or blastic lesion. Patient had an F-18 PET scan 01/02/2020 which showed multiple areas of involvementof bones with increased SUV activity. She was contacted with these results by phone and I recommended bone marrow aspirate and biopsy for assessment and analysis. Her prior labs were reviewed. Her SPEP does not show anymonoclonal gammopathy. On VAHID there appears to be a trace of monoclonal gammopathy. Free light chain ratio is less than 100. There is no evidence of renal sufficiency. Patient is not anemic. She doeshave some abnormal areas on bone scan. - Summary of Therapies Summary of Therapies: 1. 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 2. She underwent a single dose of palliative radiation therapy to bilateral hips, receiving 800 cGyto right and left hip in 1 fraction in separate vaz (with a single isocenter). The treatments were given with AP/PA vaz [id number] MV photons and MLC blocks. 3. Deferred active therapy for myeloma 2 months given COVID-19 epidemic with increased risk of myelosuppression and viral transmission of contacts. --Follow-up 03/05/2020 I discussed her case with Dr. Piter Benavidez at malignant hematology. --Given her significant hepatic dysfunction, I presented her case at malignant hematology tumor board to discuss optimal therapy. 4. Cycle 1 day 1 04/10/2020: Dose reduced Velcade 0.7 mg/m? twice weekly (day 1,day 4, day 8, day 11)every 3 weeks with dexamethasone 20 mg weekly and daratumumab 16 mg/kg weekly of each 21-day cycle.After first week, Velcade decreased to 0.7mg sq weekly due to thrombocytopenia. --We will need to watch liver function, platelet count, and neuropathy closely on Velcade. 5. Cycle 9 day 1 10/02/2020: Daratumumab 16mg/kg once monthly maintenance therapy until progression. 6. 07/31/2021: Palliative radiation therapy to right supra chondral/soft tissuearea of hip which is PET positive. She received a dose of 3000 cGy in 10 fractions from 07/31/2021 to 08/15/2021 over 15 elapsed days 7. 08/30/2021: Right hip pain improved after radiation. Due to disease progression with persistent cytopenias, changed to repeat loading doses of daratumumab 16 mg/kg weekly for cycles 1 through 3 with Revlimid 5 mg daily for 3 weeks on 1 week off. Held Revlimid second week due to neutropenia with sinus infection, resumed 3 days ago (09/17/2021). Referred for CAR-T therapy evaluation. 8. 12/18/2021: Daratumumab is now 16 mg/kg every 2 weeks with Revlimid 5 mg daily for 2 weeks on 2 weeks off due to neutropenia and thrombocytopenia. Still pending evaluation for CAR-T therapy. 9. 01/22/2022: Patient is not deemed a candidate for stem cell transplant or CAR- T therapy at this time. Discussed changing from current Revlimid to pomalidomide with continued daratumumab 16 mg/kg every 2 weeks. Plan change in therapy in 1 month. 10. 02/19/2022: Continue daratumumab 16 mg/kg IV every 2 weeks and changed to pomalidomide now 3 mg daily days 1 through 21 of each 28-day cycle (lower dose due to baseline liver dysfunction) -- 03/19/2022: Patient was noted to tolerate Pomalyst only 1 week (03/05- 03/13/2022)due to grade 3 rash. This resolved after stopping medication 1 week later. 1 dose level reduction Pomalyst to 2 mg daily days 1 through 21 of each 28-day cycle. Also holding daratumumab daily for platelet count of 41,000 and will resume at full dose with first dose of Pomalyst. -- 04/09/2022: Platelet 40,000 without bleeding. Will continue monthly Daratumumab with change of Pomalyst to 2mg D1-14 each 28 day cycle (off 2 weeks due to low platelets). Rising lambda light chains,unable to tolerate Pomalyst due to cytopenias, stopped mid 07/2022. 11. 07/18/2022: carfilzomib (dose 20mg/m2 day one then 27mg/m2 D8, D15) with cyclophosphamide 300mg IV weekly and weekly dexamethasone. Baseline echocardiogram EF 60-65%. We will follow closely for her chronic cytopenias andliver dysfunction. -- 10/29/2022: Regimen on hold for past 2 weeks due to cytopenias. Today with ANC 400, holding another week and will reduce dose of carfilzomib to 20mg/m2 IV weekly with cyclophosphamide 300-->240mg/m2 IV weekly, continue weekly dexamethasone. -- 11/26/2022: ANC 700, Platelets 40,000. Continue carfilzomib 20mg/m2 IV weekly with cyclophosphamide 300-->240-->180mg/m2 IV weekly, continue weekly dexamethasone. -- Carfilzomib/cyclophosphamide on hold since 12/04/2022 due to cytopenias, pending evaluation by for bispecific antibody therapy. --01/09/2023: Improving cytopenias ANC 900, platelets 68,000. --02/18/2023: Still on hold since 12/04/2022 (if resumed will give carfilzomib 20mg/m2 IV weekly with cyclophosphamide 300-->120mg/m2 IV weekly. 02/24/2023 bone marrow with 4% plasma cells, hypocellular 10%. Continue to hold active therapy for myeloma 03/2023 and 06/2023 visits. --Virtual visit 06/26/2023: Second opinion with Dr. Lindquist at --in person visit scheduled 07/23/2023 for possible by specific antibody therapy versus CAR-Teligibility. ROS Details: All systems reviewed & no additional complaints except as documented Subjective/ROS - Narrative: No change in review of systems from last visit 06/10/2023. Constitutional: No Chills, No Diaphoresis, mild worsening fatigue, No Fever, NoMalaise, No Night Sweats, No Weakness, No Weight Gain, No Weight Loss Gastrointestinal: No Abdominal Pain, No Black Stool, No Bloating, No Bloody Stool, positive for constipation, No Diarrhea, No Dysphagia, No Hematemesis, No Nausea, No Postprandial Pain, No Rectal Bleeding, No Rectal Pain, No Vomiting, Other (chronic gastroesophageal reflux stable) --No jaundice or ascites but patient has longstanding nonalcoholic steatohepatitis with cirrhosis, previously followed by [facility] gastroenterology. Cardiovascular: No Chest Pain, No Edema, No Palpitations, No Syncope Genitourinary: No Discharge, No Dysuria, No Flank Pain, Frequency (chronic andunchanged), Resolved Hematuria, No Incontinence, No Nocturia, No Urgency, No Urinary Retention Musculoskeletal: + left shoulder and neck pain as per HPI (no thoracic cord compression). Recent worsening right hip/thigh pain; positive for intermittent lumbar back pain, No Chest Wall Tenderness, Improvement of prior Joint Pain, Muscle Stiffness, Myalgia (history of fibromyalgia), --unremarkable skeletal survey June 2019. 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 12/2020: F-18 PET/CT stable. 04/2021 F-18 PET/CT stable. Right hip pain mildly improved after palliative radiation. 04/30/2022 repeat Axumin F-18 PET/CT stablefrom 1 year ago. HEENT: + frontal headache and sinus tenderness/congestion--improved. No Blurred Vision, No Discharge, No Ear Pain, No Epistaxis, No Sore Throat --patient was seen in emergency department November 2019 with persistent epistaxis. She was treated with nasal clip and packing and was advised to continue Afrin. No recurrent bleeding. 2 courses of antibiotics in Aug-Sep 2021 for recurrent sinusitis. 11/30/2022: Polyp only on CT (no air-fluid level). 12/26/22: Augmentin 2 week course and hold chemo. Respiratory: No Cough, No Hemoptysis, mild Shortness of Breath (chronic and unchanged due to COPD),No Sputum, No Wheezing--shortness of breath with daratumumab reaction dose 1 04/10/2020 (given a split dose over 2 days). No recurrent reaction since first dose. Neurological: No Dizziness, Stable Numbness/Tingling (reports long-standing bilateral foot numbness--unchanged since starting low-dose Velcade 04/10/2020), NoPre-existing Deficit (no history of stroke or seizure), intermittent headache Hematologic/Lymphatic: No significant bleeding thrombocytopenia from sequestration/myeloma disease,Bruises Easily, No Enlarged Lymph Nodes, Other (reports allergy to prior platelet transfusion) Endocrine: Excessive Sweating (hot flashes, postmenopausal) Flushing, No Intolerance to Cold, Intolerance to Heat Psychiatric: No Depressed Mood, No Insomnia Integumentary: No Jaundice, No Lesions, positive for diffuse rash on Pomalyst 3mg daily as per HPI.1 level dose reduction to 2 mg daily with only mild rash/pruritus. Due to cytopenias Pomalyst reduced to 2 mg twice weekly on Mondays and . Stopped Pomalyst in Jul 2022--no recurrent rash. Allergic/Immunology: Previous pruritus with Pomalyst rash resolved off Pomalyst. [facility] - History Attestation statement: The following information was validated with the patient. Source: Old Records Reviewed - Medical History Medical History: Medical History (Last Reviewed 07/08/23 @ 13:00 by Fabiola Marinelli MD) Aortic aneurysm COPD (chronic obstructive pulmonary disease) Diabetes Fibromyalgia GERD (gastroesophageal reflux disease) Hypertension Iron deficiency Multiple myeloma Neutropenia Smoldering multiple myeloma (SMM) Smoldering myeloma Temporary low platelet count - Surgical History Surgical History: Surgical History (Last Reviewed 07/08/23 @ 13:01 by Fabiola Marinelli MD) H/O: hysterectomy History of appendectomy History of cholecystectomy - Family History Family History: Family History (Last Reviewed 07/08/23 @ 13:01 by Fabiola Marinelli MD) Other COPD (chronic obstructive pulmonary disease) - Social History Smoking Status: Former smoker Tobacco Type: cigarettes Substance Use Type: None Social History Comments: Lives with son a grandaughter Home Medications & Allergies Allergies diclofenac [From Voltaren] Allergy (Verified 07/08/23 10:42) Hives doxycycline [From Vibramycin] Allergy (Verified 07/08/23 10:42) Hives erythromycin base [From E-Mycin] Allergy (Verified 07/08/23 10:42) Hives latex Allergy (Verified 07/08/23 10:42) Unknown Reaction moxifloxacin [From Avelox] Allergy (Verified 07/08/23 10:42) Hives Quinolones Allergy (Verified 07/08/23 10:42) Unknown Reaction tetracycline Allergy (Verified 07/08/23 10:42) Unknown Reaction Home Medications carvedilol 12.5 mg tablet 12.5 mg PO BID 11/20/17 [History Confirmed 07/08/23] duloxetine 60 mg capsule,delayed release 60 mg PO DAILY 11/20/17 [History Confirmed 07/08/23] insulin detemir U-100 100 unit/mL (3 mL) subcutaneous pen 22 units subcut DAILY PRN Hyperglycemia 11/20/17 [History Confirmed 07/08/23] oxycodone 10 mg tablet 10 mg PO BID PRN Pain 11/20/17 [History Confirmed 07/08/23] albuterol sulfate 90 mcg/actuation aerosol inhaler 2 puff inhalation Q6H PRN Shortness Of Breath 11/24/17 [History Confirmed 07/08/23] omeprazole magnesium 20 mg tablet,delayed release (Prilosec OTC) 40 mg PO DAILY 11/24/17 [History Confirmed 07/08/23] metformin 500 mg tablet,extended release 24 hr 500 mg PO BID 03/05/20 [History Confirmed 07/08/23] semaglutide 0.25 mg or 0.5 mg (2 mg/1.5 mL) subcutaneous pen injector (Ozempic) 1 mg subcut QWEEK 09/24/20 [History Confirmed 07/08/23] vitamin B12 0.5 mg-folic acid 1 mg tablet 1 tab PO DAILY 03/28/21 [History Confirmed 07/08/23] lactulose 20 gram/30 mL oral solution 20 g (30 mL) PO BID PRN Constipation #600 mL 04/09/22 [Rx Confirmed 07/08/23] acyclovir 400 mg tablet 400 mg PO BID 90 days #180 tabs 09/24/22 [Rx Confirmed 07/08/23] loratadine 10 mg tablet (Claritin) 10 mg PO DAILY 12/26/22 [History Confirmed 07/08/23] atorvastatin 80 mg tablet 80 mg PO DAILY 01/28/23 [History Confirmed 07/08/23] cyanocobalamin (vitamin B-12) 1,000 mcg sublingual tablet 1,000 mcg sublingual DAILY 01/28/23 [History Confirmed 07/08/23] dexamethasone 4 mg tablet 20 mg PO DIRECTED PRN Systemic Signs And Symptoms 01/28/23 [History Confirmed 07/08/23] fluticasone propionate 50 mcg/actuation nasal spray,suspension 1 spray intranasal DAILY PRN AllergySymptoms 01/28/23 [History Confirmed 07/08/23] insulin aspart U-100 100 unit/mL (3 mL) subcutaneous pen (Novolog FlexPen U-100 Insulin aspart) 25 unit subcut DAILY PRN Hyperglycemia 01/28/23 [History Confirmed 07/08/23] lisinopril 5 mg tablet 5 mg PO DAILY 01/28/23 [History Confirmed 07/08/23] gabapentin 400 mg capsule 400 mg PO TID pain 02/24/23 [History Confirmed 07/08/23] potassium chloride 10 mEq capsule,extended release 10 meq PO DAILY #30 caps 05/18/23 [Rx Confirmed 07/08/23] ondansetron 8 mg disintegrating tablet 8 mg PO TID PRN Nausea #30 tabs 07/08/23 [Rx] Objective - Height/Weight Height/Weight: Height 5 ft 2.99 in Weight 81.647 kg BSA for Today's Weight 1.93 - Vital Signs Vital Signs: 07/08/23 10:43 Temperature 97.7 F Pulse Rate [Left Brachial] 83 Respiratory Rate 16 Blood Pressure [Right Arm] 132/78 02 Sat by Pulse Oximetry 96 Oxygen Delivery Method Room Air - Pain Generalized Pain Intensity: 3 Bilateral Hip Pain Intensity: 5 Left Hip Pain Intensity: 4 Lower Back Pain Intensity: 7 Left Neck Pain Intensity: 4 Back Pain Intensity: 0 Right Thigh Pain Intensity: 3 Bilateral Leg Pain Intensity: 5 Generalized Head Pain Intensity: 4 Bilateral Shoulder Pain Intensity: 6 Left index finger Pain Intensity: 4 - Distress Screening Distress Screen Results: RN Distress Screening Start: 02/07/20 10:17 Freq: Status: Complete Protocol: Document 05/01/20 09:33 DB (Rec: 05/01/20 09:33 DB [id number]) Distress Screening Distress Score: 0 No worry/distress Distress Screening Total 0 RN Distress Screening Start: 07/26/21 12:37 Freq: Status: Active Protocol: Document 02/18/23 10:19 LB (Rec: 02/18/23 10:20 LB [id number]) Distress Screening Distress Score: 8 Physical Concerns Pain,Trouble Sleeping Emotional Concerns How my body looks,Feeling uncertain about the future Comments defer to patient navigator Distress Screening Total 8 Distress score of 4 or more discussed No with patient? Physical Exam Narrative: Patient is alert and oriented x3. HEAD / FACE: Normocephalic. No tenderness to palpation over scalp, no sinus tenderness to palpation. EYES: Pupils are equal and reactive to light. Conjunctivae and lids are benign in appearance. Ocular movement intact. EARS: Hearing grossly intact. NOSE / MOUTH / THROAT: No frontal/maxillary sinus tenderness. No oral thrush oraphthous ulcerations. NECK / THYROID: No cervical adenopathy on exam. Thyroid is symmetrical, withoutthyromegaly, masses or palpable nodules. RESPIRATORY: Normal inspection. Lungs clear to auscultation and percussion. No wheezing, rales, rhonchi or rubs. Normal effort. CARDIOVASCULAR: Regular rate and rhythm. No murmurs, gallops, or rubs. ABDOMEN: Bowel sounds normoactive. Soft, nontender and non-distended. No hepatosplenomegaly. No masses. INTEGUMENTARY: No suspicious lesions or rash. Scattered arm bruising--large bruise proximal left arm. No petechiae noted. MUSCULOSKELETAL: Normal musculature, normal ROM upper and lower extremities, no crepitus. EXTREMITIES: No leg edema. No cyanosis or clubbing. NEUROLOGICAL: Alert and oriented. Cranial nerves intact. No gross motor or sensory deficits, patient ambulates unassisted. PSYCHIATRIC: No anxiety or evidence of depression. - ECOG Performance Status ECOG Score: 1 Results - Labs Labs: Diagram of Most Recent CBC and CMP 07/01/23 09:50 07/01/23 09:50 Labs - Last 7 Days 07/01/23 09:50: IgG 535 L, IgA 38 L, IgM 33, Free [place] LC, Quant 11.1, Free Lambda LC, Quant 306.6H, Free [place]/Lambda Ratio 0.04 L 07/01/23 09:50: Corrected WBC 1.6 L, Uncorrected WBC Count 1.6 L, RBC 3.18 L, Hgb 10.5 L, Hct 31.0 L, MCV 97.5, MCH 33.0, MCHC 33.8, RDW 16.2 H, Plt Count 26 L*, MPV 8.0, Neut % (Auto) 52.0, Lymph % (Auto) 31.1, Hodgeman % (Auto) 10.9, Eos % (Auto) 5.8, Baso % (Auto) 0.2, Nucleat RBC Rel Count 0.3, Neut # (Auto) 0.8 L, Lymph # (Auto) 0.5 L, Hodgeman # (Auto) 0.2, Eos # (Auto) 0.1, Baso # (Auto) 0.0, Platelet Estimate Decreased, Plt Morphology Comment Normal, RBC Morphology N/A, Polychromasia Slight, Poikilocytosis Slight, Anisocytosis Slight, Ovalocytes Slight - Impressions No recent imaging for review. Last PET/CT (F-18 bone) was performed 03/09/2023 with no new areas of abnormal radiotracer uptake, diffuse marrow infiltrative process noted. 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 She has high risk cytogenetics and I [facility] Her persistent thrombocytopenia made her ineligible for any clinical trials, and preventedher from receiving local pain procedures given her chronic low back pain. --05/2017 PET/CT images and reports performed for staging to exclude bone involvement with myeloma. 2 indeterminate areas of uptake thought to be degenerative arthritis vs early bone findings of myeloma (right parietooccipitalarea and upper sternum). She has remained asymptomatic [...] showed no lytic lesions and she has stableshoulder, hand, and right SI joint pain (although likely due to fibromyalgia. --Prior osseous survey 07/01/2019 showed osteopenia but no compression fractures or lytic lesions were identified. She had no significant change in myeloma labs(mild increase of urine M-spike, kappa/lambda ratio, and normal serum M- spike and quant immunoglobulins). Urine protein still undetectable, therefore will continue surveillance every 6 months with the same labs--no hypercalcemia, renaldysfunction (or proteinuria), anemia, or new bone symptoms. --------- - --Due to COVID-19 epidemic, her 6-month follow-up [...] proteins with urine M spike 43.1 but totalprotein 34.4, with no reported urine creatinine. --We deferred immunosuppressive chemotherapy for about 1 month due to control ofsymptoms after palliative radiation and concern of potential peak of COVID-19 inlate January early March. --She presented for follow-up 03/05/2020 and we discussed potential therapy options (with son available by phone). --I discussed her case with Dr. Piter Benavidez of malignant hematology, possibly presenting the patient in hematology tumor board at [facility]. --Infusion port placed 03/22/2020 at [facility] due to low platelets. No complications. --03/12/2020: Myeloma labs with no serum M-spike, + urine M spike 22.2mg/24h (14%). Immunofixation IgA lambda specificity. IgA normal 227, Serum kappa 20.6, serum lambda 516.7, Free kappa/lambda ratio0.04. Normal renal function and calcium. Lower ANC 600 and platelets 40,000 --04/10/2020: Started cycle 1 day 1 of weekly dexamethasone 20 mg IV (careful to watch blood sugars with diabetes and known hepatic dysfunction), decreased dose of bortezomib 0.7 mg/m? twice weekly for2 weeks on 1 week off (due to known liver disease and thrombocytopenia), and daratumumab 8mg/kg D1,D2 IV first week,then 16 mg/kg IV weekly and we may consider Revlimid as a 4th medication if needed (deferred for worsening neutropenia and thrombocytopenia--I am reluctant to add this therapy initially). --------- --01/21/2021: One year f/u F18 PET/CT with stable FDG avidity, monoclonal labs (SPEP, Quant Igs, kappa/lambda ratio) all pending. Stable CBC and CMP. Persistent pain left hand 2nd MCP joint--increaseduptake on PET/CT but no lesion on left hand xray from 11/2020. Sending for ortho evaluation. For nowcontinue once monthly Daratumumab. F/u with myeloma labs and exam in 2 months, sooner prn. --05/24/2021: Bone marrow biopsy does not show significant progression although poor prognosis mutation 1q with 13q on FISH. Hypocellular with recent worseningplatelets without bleeding--will recheck B12, folate, and ferritin. [...] sent for plain films of the hip femurand knee showing degenerative changes but no acute [...] progression although she still has slow rise inlambda light chain and platelet count remains in [...] check. She will sign Revlimid consent Thursday. Sheis in agreement with this plan. --09/20/2021: Started daratumumab loading doses weekly with Revlimid on 09/04/2021. Held therapy forANC 900 and platelet 42,000 with sinus infection, now resolved and resumed Revlimid 5mg daily on 09/17. Will continue therapy as prescribed with weekly CBC and hold Revlimid as needed for cytopenias.Evaluation for [facility]T [facility] at [facility]. Send myeloma labs and skeletal survey [...] current cycle of Revlimid with change to pomalidomide4 mg daily, follow weekly CBCs after change in therapy and determine optimal dose based on symptomsand cytopenias. Patient is in agreement with this plan. Next follow-up with me in 1 month and we will defer next light chain analysis until 1 month after change in therapy. --02/19/2022: Continued rise in lambda light chains and worsening thrombocytopenia. Today we reviewed informed consent for adding pomalidomide 3 mg daily days 1 through 21 every 28 cycle 2 every otherweek daratumumab. We are dropping Revlimid due to [...] stopped after initial cycle was only given 5/4-03/13/2022. Now yamile has complete resolution of symptoms she may resume pomalidomide at 1 dose level reduction 2 mg daily for days 1 through 21 of each 28-day cycle. We are also holding her daratumumab today due to declining her platelet count 41,000 without bleeding. Repeat kappa/lambda light chain ratio was increased 80 on 5 4but this was her first dose of pomalidomide. Plan anticipate arrival of pomalidomide within the next 1 to 2 weeks and she may resume daratumumab on day1 of therapy. Her next follow-up will be [...] for following myeloma show normal mild increase herfree lambda from 87 to 106, kappa/lambda ratio decreased 0.10-0.09. I will give her 1 more month ofpomalidomide with daratumumab and dexamethasone. The pomalidomide dose will be changed to 2 mg p.o.days 1 through 14, off days 15 through [...] bony lesions. Her kappa/lambda light chain ratio remainsrelatively stable since early March (0.09-0.11) with free lambda light chainsnow relatively stable (106-109). I advised continuing her current regimen and reevaluating with kappa/lambda light chain ratio in 2 months. Continue current dosing and close observation due to platelet count 48,000. No signs or symptomsof infection. Patient is in agreement with this plan. --07/10/2022: Mojgan has no new symptoms, but continued cytopenias with 2 weeks of pomalidomide helddue to recurrent neutropenia and persistent thrombocytopenia (40-50,000). Continued uptrending lambda light chains consistent with progression of myeloma. We did discuss bone marrow biopsy, but this would not policy change clerk, therefore we will give Pomalyst (now decreasedto 2mg Thursday and only) with last dose Daratumumab tomorrow. 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 --09/17/2022: Mojgan is here for cycle 3 of modified CYKLONE regimen. She continues to do ok with only mild fatigue, no other new complaints or s/s of infection. She is ok to treat per discussion with Dr. Marinelli despite low WBC, ANCand platelets. She will follow-up in 3 weeks [...] CBC, CMP, SPEP, VAHID, immunoglobulins, and FLC. Sheis in agreement with this plan and has no questions. --10/29/2022: Stable symptoms on current therapy. Recent viral infection with worsening cytopenias.She has been off weekly therapy for the last 2 weeks due to cytopenias, therefore we will hold 1 further week and if her blood counts meet parameters, she will have dose reduced Carfilzomib 27-->20mg/m2 IV weekly, Cyclophosphamide 300-->240mg/m2 IV weekly, and Dexamethasone 20mg IV/po weekly. She is overdue for echo which was ordered today and we will check results beforeresuming therapy. Next follow-up with me in 6 weeks or sooner as needed. [place]/lambda light chains were reviewed and doshow partial response over the last 3 months. We will continue to follow at least every 2 to 3 months while ontherapy. . No longer a candidate for Blenrep--access removed by FDA for limitedefficacy. Moderate complexity 35 minute followup visit. --11/26/2022: No new symptoms with ongoing response of lambda light chains but persistent cytopenias. In absence of new symptoms of infection or bleeding, we will continue therapy with further dose reduction of cyclophosphamide to 180mg/m2 IV weekly with stable dose Kyprolis 20mg/m2 IV weekly and Dex amethasone. Discussed with Dr. Benavidez at --he would support holding therapyand observation if persistent cytopenias and consider bone marrow biopsy. For now will continue monthly followup and myeloma labs every 1-2 months. She may be a candidate for bispecific antibody in the future if refractory or intolerantof current therapy. Echo stable cardiac function EF [...] persistent cytopenias and sinusitis. She now has [id number] and platelets 37,000 without bleeding. Relatively stable lambda light chains in 40s range. I will hold therapy another 2 weeks, give Augmentin 875mg bid x 2 weeks for persistent sinusitis (no airfluid levels on CT scan), and send referral to Dr. Benavidez for possible CD3/BCMA bispecific antibody therapy (risk of cytokine release syndromewith first dose, requires inpatient observation at a [...] first week due to risk of cytokine releasesyndrome). Nextfollowup with myeloma labs in 2 months, sooner prn. 30 minute moderate complexity followup. --02/18/2023: No active therapy since 12/04/2022--platelets have not improved. Continued uptrending kappa light chains (now 60s range). 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 Worsening right hip/leg pain--repeat PET/CT to determine if bony progression (plain film without obviouslytic lesion right hip/femur). Will set up IR guided bone marrow biopsy to evalwhether persistent cytopenias due to progression vs. therapy related MDS. Hold Kyprolis/Cytoxan and if no progression or MDS on bone marrow biopsy, we will resume lower dose Cyclophosphamide 120mg/m2 IV weekly,Kyprolis 20mg/m2 IV weekly, and Dexamethasone 20mg weekly. [...] cells in addition to a 12% atypical clonalB-cell population on flow cytometry. Given her hypocellularity and low percentage of plasma cells despite increasing lambda light chains onperipheral blood, we will continue to hold her [...] CBC monthly and follow-up with her in 3months with CBC, CMP, quantitative immunoglobulins and kappa/lambda light chains. She may return sooner if new issues arise. High complexity 45-minute visit for review of bone marrow biopsy, imaging,complex medical testing,discussion of plan. --06/10/2023: Stable right hip pain and neuropathy. Off active therapy with cyclophosphamide, Kyprolis, and dexamethasone since 12/2022. Platelet count still 28,000 without active bleeding. Hemoglobin stable at 10 but worsening [id number] with ANC 1000. Rising lambda light chains [...] leukopenia over the last 3 months with nowabsolute neutropenia ANC 800 without any recent infections. Platelet count is now down to 26,000 without active bleeding but marked bruising of the extremities. Hemoglobin is stable at 10.5 with normal renal function and calcium. She has a scheduled in person follow-up with Dr. Supa Lindquist on 07/23/2023 where she will review potential eligibility for these novel therapies that are not available at [facility]. We did discuss potential risk of cytokine release syndrome with by specific antibody therapy that would require a short hospital admission at [facility]. For now we set up afollow-up visit in 3 months with myeloma laboratories, sooner if requested byDr. Lnidquist. Patient is in agreement with this plan over this 35-minute moderate complexity visit for coordination of care with [facility]. (2) Bone marrow hypocellularity Hypocellular for age with 10% cellularity. Nutritional work-up as noted above. No vitamine deficiencies noted. Dr. Supa Lindquist may plan to repeat bone marrow biopsy prior to further active therapy for known light chain myeloma. -- Of note patient had prior testing for ceruloplasmin that returned low at 17.5and she was placed on oral copper therapy 2 mg daily since March 2023. I am repeating her serum copper and ceruloplasmin levels with labs today and we will contact her with results. We will increase her oral supplemental copper based on these results due to persistent pancytopenia. (3) Chronic copper deficiency As noted above patient was placed on supplemental copper therapy due to low ceruloplasmin noted 03/11/2023 labs. Repeating these labs today and will titratecopper therapy either orally or IV dependingon levels today. 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 I previously reviewed her outpatient records from [facility] [place], including review of notes, laboratories, and prior bone marrow biopsy 13 years ago. 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 Most recent platelet count is relatively stable at 54,000 but no clinical bleeding. She waspreviously referred to weight reduction clinic and may have slow improvement of steatohepatitis with lifestyle modification. Unless she has active bleeding or planned surgery, we will continue observation during treatment of active myelomato commence next month as noted above. --Agree with recommendation for EGD surveillance for varices (last was 09/2018--negative). This will be deferred during current COVID-19 epidemic. --Prior vitamin B12 and folic acid are normal, for known history of neuropathy. As noted above, I reviewed the negative M spike on serum protein electrophoresiswith immunofixation, but positive for Bence Murray protein on urine protein electrophoresis. Her Quantitative immunoglobulins IgG, IgA, and I gM were all within normal limits, however her serum kappa lambda light chain analysis showeda predominance of lambda light chains. --Previous labs for lupus anticoagulant with DRVVT, hexagonal phase phospholipid, anti-cardiolipin IgG and IgA, and beta 2 glycoprotein IgG and IgA were within normal limits. --Evaluated in ED November 2019 for epistaxis which resolved. Platelet count wasstable at 12/28/2019 follow-up. She continues surveillance with liver clinic at [facility] and I will continue to follow her every 6 months, sooner if newbleeding issues arise. --04/02/2020: We reviewed informed consent for Daratumumab/Velcade/Dexamethasone for active myeloma therapy. I requested prior liver biopsy results and notes from liver clinic at [facility]. Platelet count in 40,000 range but patient has had no active bleeding following infusion port placement 03/22/2020. --08/13/2020: Cycle 6 week 2 toxicity check with improved thrombocytopenia 79,000 range with no bleeding. We will continue current dosing with Velcade 0.7mg/m2 sq (now once weekly), dexamethasone 20 mg weekly, and full dose daratumumab with close follow-up of liver function and platelet counts. --09/24/2020, 01/21/2021, 03/28/2021: Platelets stable 60-70,000 with no new toxicities, started Daratumumab maintenance 10/02/2020. --04/24/2021: Platelets now down to 57,000 with rising lambda light chains. Will eval with repeat bone marrow biopsy due to nonsecretory myeloma. --05/24/2021: Bone marrow hypocellular without significant myeloma progression. Normal B12/folate stores, continue Daratumumab maintenance. --08/16/2021: Persistent thrombocytopenia in 50,000 range, consider change in therapy due to risinglambda light chains. Will check echo and review case withErna Benavidez at to discuss next line of therapy. --08/30/2021: Stable platelets--decision to resume weekly Daratumumab 16mg first 3 cycles and change to Revlimid 5mg daily 1-21 each 28 day cycle--titrate as tolerated --09/20/2021: Platelets have declined to 40-50,000 range without mucosal bleeding. Held Revlimid atplatelets 42,000 during sinus infection, resumed after one week off. Will follow weekly CBCs on Daratumumab/Revlimid. --12/18/2021, 01/22/2022: Platelets still in the 50,000 range without mucosal bleeding. Current dosing of daratumumab every 2 weeks and Revlimid 5 mg daily 2weeks on 2 weeks off--plan to change to pomalidomide 3 mg daily next cycle. -- 02/19/2022: Last week platelets were 48,000 and we held Revlimid. This week platelets 58,000 but continuing to hold Revlimid due to change to daratumumab 16mg/kg IV every 2 weeks with pomalidomide 3 mg daily days 1 through 21 every 28-day cycle -- 03/19/2022: Platelets were down to 41,000 and we held daratumumab as well as Pomalyst for rash asnoted above. Resume Pomalyst at 2 mg days 1 through 21 every 28 days. Continue daratumumab 16 mg/kgevery 2 weeks. -- 04/09/2022: Platelets down to 40,000. Okay to give daratumumab 16 mg/kg IV every 2 weeks but Pomalyst dose will be changed to 2 mg days 1 through 14 every 28 days. Follow-up 1 month. -- 05/07/2022: Platelets 48,000. Continue monthly daratumumab 16mg/kg IV with same Pomalyst dose 2mg daily D1-14 every 28 days. Extend next follow-up with kappa/lambda light chain ratio to 2 months. --07/10/2022: Platelets 53,000 with ANC now 600 (held Pomalyst one week for ANC 300). May have one dose Pomalyst today, then hold for change in therapy. Will have platelet transfusion as needed for change in therapy to Kyprolis/Cytoxan/Deamethasone. --08/20/2022: Platelets declined to mid 30,000 range about 4 weeks ago--now up to 56,000 and WBC 1600 and ANC 1000 on Kyprolis/Cytoxan/Deamethasone. No activebleeding. Continue current dosing and f/uin 3 weeks. --09/17/2022: Platelets at 43,000 without recent transfusion. WBC and ANC at 1.4and 600 respectively. Will continue with treatment. --10/15/2022: Platelets at 49,000. No s/s of bleeding. Ok for treatment. --10/29/2022: Platelets at 31,000 with ANC 400. Dose reductions recommended asnoted above. No active bleeding. Follow-up 6 weeks. --11/26/2022: Platelets at 40,000 with ANC 700. Dose reduction cyclophosphamideonly as noted above. No active bleeding. Follow-up 4 weeks. --No chemo since 12/04/2022. Platelets 37,000-->68,000. --02/18/2023: Platelets still 35,000. Sending for IR guided bone marrow biopsy. Will continue to hold chemotherapy until bone marrow biopsy review in 3 week. We may resume with cytoxan dose reduction if no progression or MDS. She may be a future candidate for bispecific antibodies for multiple myeloma. Still has nobleeding. -- 03/11/2023: Platelets have now declined to 28,000. She had increased bruisingaround the site of her bone marrow biopsy [...] Dr. Supa Lindquist for further therapy at [facility] as noted above. (5) Cancer-related pain Improved symptoms after palliative radiation to bilateral hips--one dose 02/07/2020, radiation to right hip . Will continue to follow on myelomachemotherapy. Extensive, but stable bone involvement on F-18 PET/CT 12/2020 and 04/2021. Recent increased left neck and shoulder pain. Increased oxyco done dosing to three times daily, no unusual right hip pain is noted above--followed by palliative medicine. -Completed right hip radiation with persistent but improved pain--no new pain issues with follow-upvisit with radiation in early March 2022, follow-up [...] therapy. No change in symptoms at 07/08/2023 followup. 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 She wasref[facility] to [facility] to attempt weight reduction through diet and exercise that may prevent further fatty infiltration that may further impairher liver function. [facility] hepatology discussed liver transplant but sheis likely no longer a candidate for this given active myeloma. We chose least hepatotoxic regimen for treatment of her active myeloma with 50% dose reduction of Velcade. Liver function remained stable since start of therapy 04/10/2020. --Requested prior liver biopsy and [facility] liver clinic records. Dose reduction 20% Kyprolis due to KAPADIA with cirrhosis (normal bilirubin and transaminases). Stable LFTs on Kyprolis/Cytoxan/Dexamethasone therapy (on hold since 12/04/2022). (7) Encounter for coordination of complex care Initial Daratumumab maintenance tolerated well without significant toxicities. Bone marrow biopsy did not reveal indication for change in therapy. --09/04/2021: Repeat loading with weekly Daratumumab 16mg first 3 cycles and changed to Revlimid 5mgdaily 1-21 each 28 day cycle--02/19/2022 reviewed informed consent to change to pomalidomide next cycle. --03/19/2022. Pomalyst was stopped after 1 week of therapy on 03/13/2022. Daratumumab held 03/19/2022 due to platelet count 41,000. We resumed both medications on arrival of dose reduce Pomalyst 2 mg days 1 through 21 every 28- day cycle. -- 04/09/2022: Daratumumab is monthly maintenance. Mid July: last dose Pomalyst 2mg today with ANC 600. -- 07/30/2022: Changed chemo to Kyprolis/Cytoxan, normal baseline Echo. -- 10/29/2022: Dose reductions for cytopenias Carfilzomib 27-->20mg/m2 IV weekly, Cyclophosphamide 300--240mg/m2 IV weekly, and Dexamethasone 20mg IV/po weekly. Will continue every 3 week therapy until progression or intolerable toxicity. --11/26/2022: Platelets at 31,000 with ANC 400. Dose reductions Carfilzomib 27-->20mg/m2 IV weekly, Cyclophosphamide 300--240-->180mg/m2 IV weekly, and Dexamethasone 20mg IV/po weekly. Therapy on hold since 12/04/2022 for cytopenias and sinusitis. Continue to hold 02/18/2023 pending bone marrow biopsy. -- January 2023: 1 dose IVIG 0.4 mg/kg due to recurrent sinusitis. No improvementof platelet count. -- 03/11/2023: Bone marrow biopsy with 10% cellularity, 4% plasma cells. Decision to continue to hold carfilzomib/cyclophosphamide/dexamethasone and work-up for nutritional etiologies. --06/10/2023: Continue observation off chemotherapy x 6 months. Second opinion with Dr. Lindquist [facility] (virtual consult 06/26/2023; In person consult 07/23/2023 for possible by specific antibody or CAR-T therapy.). - Chemo Plan Chemo Plan (Dose, Rate, Freq): Active chemotherapy on hold since 12/05/2022 due to persistent leukopenia and thrombocytopenia. Goal of Treatment: Palliative - Time with Patient Time Spent with Patient (Follow Up Visit): 35 minutes - Moderate complexity--review symptoms and labs, continue to hold therapy, second opinion virtual visit [facility] Coordination of Care & Counseling Time: Greater than 50% of time spent with patient was for coordination of care (as documented) and bymu-ma-nbwl counseling of patient and/or family. Dictated By: Fabiola Marinelli MD DD/ [id number] Signed By: <Electronically signed by MD Fabiola Marinelli> 07/08/23 1334 [facility] Work Phone: Progress note Author Fabiola Marinelli [facility] Date/TimeNovember 2023 10:27[facility] [place] [address] Cancer Center Note Signed Patient: Mojgan Pérez MR#: [id number] : 1955 Acct:[id number] Age/Sex: 69 / F Type: DEP AMB Date of Service: 09/15/24 Copies to: Yinka Lopez MD~ Assessment & Plan A/P (1) Encounter for antineoplastic immunotherapy: Plan: Teclistamab received at 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 Second dose of Teclistamab weekly (08/17, 08/25, 09/01, 09/08) with changing threshold notification for platelets less than35. She has not had any bleeding complications due to thrombocytopenia. She was scheduled for third cycle ofweekly Teclistamab beginning 09/15/2023 but this was held due to positive COVID-19 infection on 09/12/2023. Plan to admit to 11/04/2023 for next cycle of Teclistamab (will need to observe for recurrentCRS due to significant delay since last dose) -- Resume IVIG 0.4 mg/kg every 3 months at [facility]--now monthly at --Previous doses held cycle 2-day 22 and 28 due to COVID, cycle 3-day 22 and 828for persistent cough then restarted cycle 4-day 01 February 2024. Doses were changed from weekly to every other week 02/23/24. Doses were changed to every 3 weeks 05/24/2024. -- Teclistamab-cqyv subcu 25 mg once every 3 weeks with dose modification 0.03 mg/kg dose 1 on 08/06/2023, then dose changed to 0.6 mg/kg (49 mg)--most recent records from 09/06/2025 with Teclistamab dose 117 mg (about 95% of standard dose 1.5 mg/kg) now every 3 weeks. -- Cycle 10-day 1: 100% dose 123 mg to start mid September 2024 at [facility]. --IVIG 20 g about once every 4 to 6 weeks with hydrocortisone injections 100 mg each IVIG infusion.IVIG resumed for IgG less than 400 [facility] 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 She has high risk cytogenetics and I [facility]. Her persistent thrombocytopenia made her ineligible for any clinical trials, and preventedher from receiving local pain procedures given her chronic low back pain. --05/2017 PET/CT images and reports performed for staging to exclude bone involvement with myeloma. 2 indeterminate areas of uptake thought to be degenerative arthritis vs early bone findings of myeloma (right parietooccipitalarea and upper sternum). She has remained asymptomatic [...] showed no lytic lesions and she has stableshoulder, hand, and right SI joint pain (although likely due to fibromyalgia. --Prior osseous survey 07/01/2019 showed osteopenia but no compression fractures or lytic lesions were identified. She had no significant change in myeloma labs(mild increase of urine M-spike, kappa/lambda ratio, and normal serum M- spike and quant immunoglobulins). Urine protein still undetectable, therefore will continue surveillance every 6 months with the same labs--no hypercalcemia, renaldysfunction (or proteinuria), anemia, or new bone symptoms. [...] proteins with urine M spike 43.1 but totalprotein 34.4, with no reported urine creatinine. --We deferred immunosuppressive chemotherapy for about 1 month due to control ofsymptoms after palliative radiation and concern of potential peak of COVID-19 inlate January early March. --She presented for follow-up 03/05/2020 and we discussed potential therapy options (son available byphone). --I discussed her case with Dr. Piter Benavidez of malignant hematology, possibly presenting the patient in hematology tumor board at [facility]. --Infusion port placed 03/22/2020 at [facility] due to low platelets. No complications. --03/12/2020: Myeloma labs with no serum M-spike, + urine M spike 22.2mg/24h (14%). Immunofixation IgA lambda specificity. IgA normal 227, Serum kappa 20.6, serum lambda 516.7, Free kappa/lambda ratio0.04. Normal renal function and calcium. Lower ANC 600 and platelets 40,000 --04/10/2020: Started cycle 1 day 1 of weekly dexamethasone 20 mg IV (careful to watch blood sugars with diabetes and known hepatic dysfunction), decreased dose of bortezomib 0.7 mg/m? twice weekly for2 weeks on 1 week off (due to known liver disease and thrombocytopenia), and daratumumab 8mg/kg D1,D2 IV first week,then 16 mg/kg IV weekly and we may consider Revlimid as a 4th medication if needed (deferred for worsening neutropenia and thrombocytopenia--I am reluctant to add this therapy initially). --------- --01/21/2021: One year f/u F18 PET/CT with stable FDG avidity, monoclonal labs (SPEP, Quant Igs, kappa/lambda ratio) all pending. Stable CBC and CMP. Persistent pain left hand 2nd MCP joint--increaseduptake on PET/CT but no lesion on left hand xray from 11/2020. Sending for ortho evaluation. For nowcontinue once monthly Daratumumab. F/u with myeloma labs and exam in 2 months, sooner prn. --05/24/2021: Bone marrow biopsy does not show significant progression although poor prognosis mutation 1q with 13q on FISH. Hypocellular with recent worseningplatelets without bleeding--will recheck B12, folate, and ferritin. [...] sent for plain films of the hip femurand knee showing degenerative changes but no acute [...] progression although she still has slow rise inlambda light chain and platelet count remains in [...] check. She will sign Revlimid consent Thursday. Sheis in agreement with this plan. --09/20/2021: Started daratumumab loading doses weekly with Revlimid on 09/04/2021. Held therapy forANC 900 and platelet 42,000 with sinus infection, now resolved and resumed Revlimid 5mg daily on 09/17. Will continue therapy as prescribed with weekly CBC and hold Revlimid as needed for cytopenias.Evaluation for CAR[facility]T therapy at [facility]. Send myeloma labs and skeletal survey [...] current cycle of Revlimid with change to pomalidomide4 mg daily, follow weekly CBCs after change in therapy and determine optimal dose based on symptomsand cytopenias. Patient is in agreement with this plan. Next follow-up with me in 1 month and we will defer next light chain analysis until 1 month after change in therapy. --02/19/2022: Continued rise in lambda light chains and worsening thrombocytopenia. Today we reviewed informed consent for adding pomalidomide 3 mg daily days 1 through 21 every 28 cycle 2 every otherweek daratumumab. We are dropping Revlimid due to [...] initial cycle was only given 03/05-03/13/2022. Now thatradha has complete resolution of symptoms she may resume pomalidomide at 1 dose level reduction 2 mg daily for days 1 through 21 of each 28-day cycle. We are also holding her daratumumab today due to declining her platelet count 41,000 without bleeding. Repeat kappa/lambda light chain ratio was increased 80 on 4but this was her first dose of pomalidomide. Plan anticipate arrival of pomalidomide within the next 1 to 2 weeks and she may resume daratumumab on day1 of therapy. Her next follow-up will be in about 3 to 4 weeks to review toxicities. She is instructed that if she has recurrent intolerable rash she may contact usand let us know. At her 4-week follow-up we will reorder her serum kappa/lambdalight chain analysis with SPEP and immunofixation to [...] for following myeloma show normal mild increase herfree lambda from 87 to 106, kappa/lambda ratio decreased 0.10-0.09. I will give her 1 more month ofpomalidomide with daratumumab and dexamethasone. The pomalidomide dose will be changed to 2 mg p.o.days 1 through 14, off days 15 through [...] bony lesions. Her kappa/lambda light chain ratio remainsrelatively stable since early March (0.09-0.11) with free lambda light chainsnow relatively stable (106-109). I advised continuing her current regimen and reevaluating with kappa/lambda light chain ratio in 2 months. Continue current dosing and close observation due to platelet count 48,000. No signs or symptomsof infection. Patient is in agreement with this plan. --07/10/2022: Mojgan has no new symptoms, but continued cytopenias with 2 weeks of pomalidomide helddue to recurrent neutropenia and persistent thrombocytopenia (40-50,000). Continued uptrending lambda light chains consistent with progression of myeloma. We did discuss bone marrow biopsy, but this would not policy change clerk, therefore we will give Pomalyst (now decreasedto 2mg Thursday and only) with last dose Daratumumab tomorrow. Will sendfor baseline Echo for possible change to carfilzomib (week 1 test dose 20mg/m2 IV, then 56mg/m2 IV weekly--dose reduction for liver dysfunction due to nonalcoholic steatohepatitis) with Cytoxan 300mg/m2 IV weekly, Dexamethasone 20mg weekly. Will f/u ECHO and consent for therapy tomorrow. Plan discussed with Dr. Benavidez Malignant Hematology--recommends no dose reduction of Cytoxan,but transfusion support as needed since cytopenias may [...] SPEP, VAHID, quantitative immunoglobulins, and kappa/lambda light chains(ok to see GLASS CUT OFF SUPERVISOR). --09/17/2022: Mojgan is here for cycle 3 of modified CYKLONE regimen. She continues to do ok with only mild fatigue, no other new complaints or s/s of infection. She is ok to treat per discussion with Dr. Marinelli despite low WBC, ANCand platelets. She will follow-up in 3 weeks [...] CBC, CMP, SPEP, VAHID, immunoglobulins, and FLC. Sheis in agreement with this plan and has no questions. --10/29/2022: Stable symptoms on current therapy. Recent viral infection with worsening cytopenias.She has been off weekly therapy for the last 2 weeks due to cytopenias, therefore we will hold 1 further week and if her blood counts meet parameters, she will have dose reduced Carfilzomib 27-->20mg/m2 IV weekly, Cyclophosphamide 300-->240mg/m2 IV weekly, and Dexamethasone 20mg IV/po weekly. She is overdue for echo which was ordered today and we will check results beforeresuming therapy. Next follow-up with me in 6 weeks or sooner as needed. [place]/lambda light chains were reviewed and doshow partial response over the last 3 months. We will continue to follow at least every 2 to 3 months while ontherapy. . No longer a candidate for Blenrep--access removed by FDA for limitedefficacy. Moderate complexity 35 minute followup visit. --11/26/2022: No new symptoms with ongoing response of lambda light chains but persistent cytopenias. In absence of new symptoms of infection or bleeding, we will continue therapy with further dose reduction of cyclophosphamide to 180mg/m2 IV weekly with stable dose Kyprolis 20mg/m2 IV weekly and Dex amethasone. Discussed with Dr. Benavidez at --he would support holding therapyand observation if persistent cytopenias and consider bone marrow biopsy. For now will continue monthly followup and myeloma labs every 1-2 months. She may be a candidate for bispecific antibody in the future if refractory or intolerantof current therapy. Echo stable cardiac function EF [...] persistent cytopenias and sinusitis. She now has DOT755 and platelets 37,000 without bleeding. Relatively stable lambda light chains in 40s range. I will hold therapy another 2 weeks, give Augmentin 875mg bid x 2 weeks for persistent sinusitis (no airfluid levels on CT scan), and send referral to Dr. Benavidez for possible CD3/BCMA bispecific antibody therapy (risk of cytokine release syndromewith first dose, requires inpatient observation at a [...] first week due to risk of cytokine releasesyndrome). Nextfollowup with myeloma labs in 2 months, sooner prn. 30 minute moderate complexity followup. --02/18/2023: No active therapy since 12/04/2022--platelets have not improved. Continued uptrending kappa light chains (now 60s range). 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 Worsening right hip/leg pain--repeat PET/CT to determine if bony progression (plain film without obviouslytic lesion right hip/femur). Will set up IR guided bone marrow biopsy to evalwhether persistent cytopenias due to progression vs. therapy related MDS. Hold Kyprolis/Cytoxan and if no progression or MDS on bone marrow biopsy, we will resume lower dose Cyclophosphamide 120mg/m2 IV weekly,Kyprolis 20mg/m2 IV weekly, and Dexamethasone 20mg weekly. [...] cells in addition to a 12% atypical clonalB-cell population on flow cytometry. Given her hypocellularity and low percentage of plasma cells despite increasing lambda light chains onperipheral blood, we will continue to hold her [...] CBC monthly and follow-up with her in 3months with CBC, CMP, quantitative immunoglobulins and kappa/lambda light chains. She may return sooner if new issues arise. High complexity 45-minute visit for review of bone marrow biopsy, imaging,complex medical testing,discussion of plan. --06/10/2023: Stable right hip pain and neuropathy. Off active therapy with cyclophosphamide, Kyprolis, and dexamethasone since 12/2022. Platelet count still 28,000 without active bleeding. Hemoglobin stable at 10 but worsening [id number] with ANC 1000. Rising lambda light chains [...] leukopenia over the last 3 months with nowabsolute neutropenia ANC 800 without any recent infections. Platelet count is now down to 26,000 without active bleeding but marked bruising of the extremities. Hemoglobin is stable at 10.5 with normal renal function and calcium. She has a scheduled in person follow-up with Dr. Supa Lindquist on 07/23/2023 where she will review potential eligibility for these novel therapies that are not available at [facility]. We did discuss potential risk of cytokine release syndrome with by specific antibody therapy that would require a short hospital admission at [facility]. For now we set up afollow-up visit in 3 months with myeloma laboratories, sooner if requested byDr. Lindquist. Patient is in agreement with this plan over this 35-minute moderate complexity visit for coordination of care with [facility]. --10/21/2023: As summarized in the HPI, Mojgan has been on active therapy with Dr. Lindquist of malignant hematology at [facility] since initiation of Teclistamab by specific antibody forrefractory myeloma. This was initiated 08/04/2023 with inpatient admission for ramp-up phase. She had grade 1 CRS (fevers) and ICANS (suzanna ICE score 8/10). She then received cycle 2-day [address] [facility] from 08/17 through last dose 09/08/2023. Her third cycle was delayed due to positive COVID-19 on 09/12/2023 treated with Paxlovid in [place]. She was to resume therapy with Teclistamab on 10/13 but had arecurrent sinus infection treated with antibiotics and steroids by Dr. Sanchez. She received IVIG 09/22/[address] [facility] for IgG level lessthan 400. We wrote orders today to resume IVIG here in [place] due to her recurrent infections and persistent pancytopenia(ANC 1000, platelets 35-40,000)secondary to known liver disease/KAPADIA cirrhosis. -- We are unable to deliver Teclistamab therapy locally due to pharmacy control issues and she willcontinue Teclistamab at [facility]. I personally spoke to Dr. Lindquist by [...] prophylaxis. We will continue to follow her withmyeloma labs CBC, CMP, quantitative immunoglobulins and kappa/lambda light chains every 3 months and primary follow-up for myeloma will be at [facility]. High complexity 1 hour visit. -- 01/21/2024: Updated history from [facility] from patient, notes scanned in, and telephone conversation with Dr. Gross. Continues monthly IVIG (most recent one week ago). We discussed potentially resuming fungal prophylaxis due to persistent cough and infectious workup below. T eclistamab on hold per Dr. Gross. Continue regular followup at . Virtual followup of CT sinusand chest when complete (1-2 weeks) and pulmonary medicine consult for possible bronchoscopy. Patient agrees with this plan. After virtual followup to review imaging, I will follow locally in 3 months to coordinate local care. 45 minute high complexity visit. --06/29/2024: Follow-up for malignant myeloma in pancytopenia secondary to cirrhosis from steatohepatitis with Dr. Lindquist. She continues Teclistamab therapy every 3 weeks at [facility] with IVIG infusions. Since last visit with me she had hospitalization for sepsis due to spontaneous bacterial peritonitis. 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 I reviewed her most recent myelomalabs showing undetectable kappa and lambda light chains, M spike unable to detect due to hypoalbuminemia, and undetectable IgM and IgAwith IgG reflecting her monthly IgG infusions. She has not had a follow-up bone marrow biopsy sincestart of therapy. Her last restaging PET/CT was over a year ago and I will order whole-body exam andF-18 PET/CT and forward results to Dr. López. I am investigating with our sourcing assistant whether we can transition her Teclistamab infusions to [facility] if we are able to obtain supply of the medication and coverage by insurance. I will communicate with whether it is feasible to transition her care locally prior to the winter months. If she continues follow-up in [place] we will follow with her every 6 months for local supportive care. We have also reviewed notes from gastroenterology, pulmonary medicine, palliative care, and outside notes from [facility]. High complexity 45-minute visit with 30 minutes coordination of care. --09/15/2024: Patient has been followed at [facility] for Teclistamab therapy, but now that she has been stable for over a year and we have appropriate licensing and in-service here [facility], we will transfer Teclistamab therapy for primary follow-up at [facility]. Orders are written to proceed next [...] 2 weeks to review tolerance of therapy hereand results of myeloma labs and PET/CT, then we will likely follow every 6 weeks on therapy. High complexity 45-minute follow-up for transfer of care and utilization of novel bi-specific T-cell effector cell (BiTE) therapy. [id number] additional 30 minutes preparation of orders and review of outside laboratories and documentation of Teclistamab therapy at [facility] (3) Refractory chronic cough: Plan: Given her chronic myelosuppression and lymphocyte function impairment from myeloma and ongoing therapy, I reviewed fungal workup with Dr. Miller of ID (urine histoplasma complement fixation), cryptococcal serum antigen, sputum culture and CT chest and sinus. Review results in 1-2 weeks. Pulmonary medicine consultation for possible bronchoscopy. -- Most recent follow-up in pulmonary medicine with Dr. Raymundo 06/27/2024 reviewed: She has remained on breast tree, nasal steroids for pansinusitis, and chronic prednisone from daily cough. He added Mucinex and she will continue IVIG therapy. Continue nebulized albuterol with sodium chloride nebs 3 times daily. -- 09/15/2024: Recent improvement of her chronic cough since stopping lisinoprilfor blood pressure and continuing Breztri and Fluticisone inhalation therapy, followed by pulmonary medicine. 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 monthly. 09/15/2024: With transition Teclistamab therapy to [facility], we will also arrange ongoing IVIG every 4 to 6 weeks locally. Proceeding with IVIG next week due to most recent IgG level 312 at earlier this month . Workup for cough noted above due to chronic hypogammaglobulinemia. (5) Bone marrow hypocellularity: Plan: Hypocellular for age with 10% cellularity. Nutritional work-up as noted above. No vitamine deficiencies noted. Dr. Supa Lindquist may plan to repeat bone marrow biopsy prior to further active therapy for known light chain myeloma. -- Of note patient had prior testing for ceruloplasmin that returned low at 17.5and she was placed on oral copper therapy [...] starting Teclistamab over 1 year ago. We willdefer further bone marrow biopsies unless uptrending myeloma markers or worsening cytopenias. Also if worsening disease on PET/CT wemay repeat her marrow. 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 I previously reviewed her outpatient records from [facility], including review of notes, laboratories, and prior bone marrow biopsy 13 years ago. 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 Most recent platelet count is relatively stable at 54,000 but no clinical bleeding. She waspreviously referred to weight reduction clinic and may have slow improvement of steatohepatitis with lifestyle modification. Unless she has active bleeding or planned surgery, we will continue observation during treatment of active myelomato commence next month as noted above. --Agree with recommendation for EGD surveillance for varices (last was 09/2018--negative). This will be deferred during current COVID-19 epidemic. --Prior vitamin B12 and folic acid are normal, for known history of neuropathy. As noted above, I reviewed the negative M spike on serum protein electrophoresiswith immunofixation, but positive for Bence Murray protein on urine protein electrophoresis. Her Quantitative immunoglobulins IgG, IgA, and I gM were all within normal limits, however her serum kappa lambda light chain analysis showeda predominance of lambda light chains. --Previous labs for lupus anticoagulant with DRVVT, hexagonal phase phospholipid, anti-cardiolipin IgG and IgA, and beta 2 glycoprotein IgG and IgA were within normal limits. --Evaluated in ED November 2019 for epistaxis which resolved. Platelet count wasstable at 12/28/2019 follow-up. She continues surveillance with liver clinic at [facility] and I will continue to follow her every 6 months, sooner if newbleeding issues arise. Review prior extensive notes regardingplatelet counts during active myeloma therapy. -- 03/11/2023: Platelets have now declined to 28,000. She had increased bruisingaround the site of her bone marrow biopsy [...] Dr. Supa Lindquist for further therapy at [facility] as noted above. -- 10/21/2023: Platelet count has remained in the 35-40,000 range since startingTeclistamab for multiple myeloma. Continue follow-up with Dr. Supa Lindquist for further therapy at [facility]. --01/21/2024, 06/29/2024, 09/15/2024: Most recent platelets responding in 50- 60,000s range. She has now completed over 1 year of Teclistamab therapy and will receive injections locally. (7) Cancer-related pain: Plan: Improved symptoms after palliative radiation to bilateral hips--one dose 02/07/2020, radiation to right hip -09/2021. Will continue to follow on myeloma chemotherapy. Extensive, but stable bone involvement on F-18 PET/CT 12/2020 and 04/2021. Recent increased left neck and shoulder pain. Increased oxycodone dosing to three times daily, no unusual right hip pain is noted above--followed by palliativemedicine. -Completed right hip radiation with persistent but improved pain--no new pain issues with follow-upvisit with radiation in early March 2022, follow-up [...] 09/15/2024: Seen by palliative medicine. Continues gabapentin 400mg twice daily with oxycodone 10 mg 4 times daily. Sending for restaging whole-body PET/CT to evaluate for possible response of bony lesions. (8) Liver cirrhosis secondary to KAPADIA (nonalcoholic steatohepatitis): Plan: We previously discussed referral to hepatology for management of KAPADIA, but that there are no medications that will likely reverse her thrombocytopenia. [facility] weight reduction through diet and exercise that may prevent further fatty infiltration that may further impairher liver function. [facility] hepatology discussed liver transplant but sheis likely no longer a candidate for this given active myeloma. We chose least hepatotoxic regimen for treatment of her active myeloma with 50% dose reduction of Velcade. Liver function remained stable since start of therapy 04/10/2020. --Requested prior liver biopsy and [facility] liver clinic records. Dose reduction 20% Kyprolis due to KAPADIA with cirrhosis (normal bilirubin and transaminases). Stable LFTs on now Teclistamab therapy at [facility], transition to [facility]. (9) Chronic copper deficiency: Plan: As noted above patient was placed on supplemental copper therapy due to low ceruloplasmin noted 03/11/2023 labs. Repeat labs showed normal copper and ceruloplasmin in July 2023. Copper therapy has been discontinued by her treating physicians in [place]. (10) Encounter for coordination of complex care: Plan: Discussion with primary oncologist at [facility]. Coordination of workup for chronic cough. Review of outside records--transition of Teclistamab and IVIG therapy to [facility] orders reviewed with [facility] chemotherapy pharmacist today Medications: New diazepam 5 mg orally 1 dose 30 minutes prior to PET scan, may repeat once 5 minutes before PRN; 1 day 2 tabs 0RF anxiety F40.240 - Claustrophobia Patient Instructions: Follow up with Dr Marinelli one week after starting Teclistamab and IVIG (transferring from ) with CBC CMP. Please reschedule Previous Pet Scan does not need to be before follow up. CHEMO PLAN Treatment Plan Intravenous Immunoglobulin (IVIG) Clinical Indication No Indication Cycle Number Last Admin 6 of 6 Completed Cycle Day Next Admin No Active Chemotherapy History of Present Illness HPI 09/15/2024: Mojgan is here for 3-month follow-up to transfer therapy with Teclistamab-cqyv BiTE therapy for refractory myeloma to our facility. She has been on Teclistamab-cqyv subcu 25 mg once every 3 weeks, most recent doses 0.6 mg/kg (49 mg) and subsequent dose escalation to 1.4 (117mg). According to most recent note from TONYA Perkins, she received cycle 9-day 21 Teclistamab (117mg)that daywith recommended transition to [facility] for ongoing doses and IVIG for IgGlevel less than 400. Recommended for seasonal influenza, updated COVID, and RSV vaccines. She has persistent thrombocytopeniathat has not significantly changed and leukopenia with absolute [id number]. No recent infections or bleeding issues. She was seen by Dr. Garcia Sanchez at yesterday and has scheduled follow-up for lab tests within the next month. Stable blood sugar control and stable pain with no evidence of progression on most recent myeloma labs at [facility] (09/06/2024: IgG 312, IgA less than 7, IgM less than 5, IgG kappa free light chain 0.08, IgG lambda 0.17, no detectable M spike but decrease in polyclonal gammaglobulins on protein electrophoresis.). We reviewed and signed informed consent for Teclistamab-cqyv and will plan first infusion for every 3-week d osing with IVIG every 4 to 6 weeks depending on her IgG level (most recent IgG was less than 400therefore she meets criteria for IVIG infusion with IgG less than 400). We willcoordinate follow-up cycle 1 week 2 to review any toxicities of therapy. High complexity 45 minutes [id number] with additional 30 minutes preparation of orders and review of outside laboratories and documentation of Teclistamab therapy at [facility]. 06/29/2024: Mojgan is here for over 5-month follow-up while concurrently following with [facility] malignant hematology for Teclistamab BiTE therapy for refractory myeloma. I have reviewed extensive records from her primary treating oncologist Dr. López and she started on Teclistamab-cqyv subcu 25 mcg once every 3 weeks with dose modification 0.03 mg/kg dose 1 on 08/06/2023, then dose changed to 0.06 mg/kg (49 mg) for subsequent doses. She isalso receiving IVIG 20 g about once every 4 to 6 weeks. With hydrocortisone injections 100 mg each IVIG infusion. Most recent Teclistamab dose was given 06/14/2024 and next is due next Thursday. --Since last visit with pr she was hospitalized at [facility] 04/10-04/19/2024 for sepsis, septic shock, and bacteremia due to Enterobacter from spontaneous bacterial peritonitis.She was treated with IV antibiotics cefepime over 2 weeks monitored by ICU team, then transition to outpatient infectious disease follow-up. She developed paroxysmal atrial fibrillation and follows with cardiology at [facility]. She has followed with hepatology at [facility] and recently was seen by Dr. Garcia Sanchez locally. Following her admission for sepsis she developed bacterial pneumonia and received antibiotics in May and more recently nasal steroids and oral steroids tres exacerbation, followed by Dr. Raymundo here locally 2 days ago. She stopped Ozempic for diabetes and is maintained on metformin with stable glucose control. Stable hip and leg pain with ambulation. Ireviewed her laboratories from [facility] showing undetectable kappa and lambda light chains, mild hypogammaglobulinemia of IgG with undetectable IgM and IgA. Her last whole- body PET/CT was in March 2023 therefore I will order whole-body PET/CT and review results with Dr. López. We will investigate whether she can transition her care with Teclistamab BiTE and IVIG infusions to [facility] for the winter due to travel issues but we need to ensure that pharmacy can provide this medication that is covered by insurance locally. If she continues Teclistamab BiTE/IVIG at [facility] for thewin, I will see her in follow-up in 6 months since we have outside records. This is a high complexity 45-minute follow-up visit to review current managementwith tertiary care [facility] malignant hematology, local GI, pulmonary medicine, and palliative medicine records. Coordination of PET/CT. Additional care complexity code [id number] to investigate transition of care locally. 01/22/2024: Mojgan is here for 3-month follow-up while concurrently following with [facility] malignant hematology for Teclistamab BiTE therapy for refractory myeloma. She continues to notesome injection site reactions with erythema. Her greatest concern recently has been a persistent cough that does not seem to improve with any antibiotic therapies. She is no longer on any antifungal prophylaxis due to potential interaction with her Teclistamab therapy. She does not have any evidence of thrush but notes some chronic nauseaand mild difficulty swallowing. Her most recent note available for review from [facility] is from 11/18/2019 for discharge summary. She was there foradmission for ramp-up dosing of her second dose of Teclistamab. During that admission she reported feeling well and endorsed chronic leg pain, opioid induced constipation, headache and minimal residual cough with clear to yellow sputum . She reports that this cough has persisted and recent chest x-rays on and 01/20 do not show any significant infiltrates. She previously had aCT angiogram to exclude pulmonary embolism where she was noted to have a mild dependent airspace opacity in the right posterior costophrenic sulcus but no other infiltrates. She reports that she received IVIG last week at [facility] which has been continued monthly. --Following her visit today, I contacted her primary oncologist at Dr. Spears. He notes thather Teclistamab has been on hold for infusion reactions and recent symptoms. Platelets are mildly improved to 50,000 from prior 20,000 range without bleeding. He notes there is no interaction of azole therapy with Teclistamab. He also denies fungal workup for cough. I contacted Dr. Miller whorecommended urine studies for histoplasma urine testing, crytptococcus antigen (serum), and sputum culture for fungal isolates. We will refer for pulmonary medicine referral for possible bronchoscopy. I willsend CT sinuses and chest and arrange virtual visit for results and further plan for followup. High complexity 45 minute f/u (eval patient, discussion with Dr. Spears). 10/21/2023: Mojgan is here for 3-month follow-up of multiple myeloma, severe thrombocytopenia, andhypogammaglobulinemia. I reviewed in detail her current treatment course with Dr. Spears at [facility] malignant hematology both through review of recent visit 10/06/2023 and personal com munication by phone today. 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 Second dose of Teclistamab weekly (08/17, 08/25, 09/01, 09/08) with changing threshold notification for platelets less than 35. She has not had any bleeding complications due to thrombocytopenia. She was scheduled for third cycle of weekly Teclistamab beginning 09/15/2023 but this was held due to positive COVID-19 infection on 09/12/2023. She was treated with Paxlovid in [place] and has not resumed therapy since that time. About 1 week ago she was to receive the delayed third cycle but this was held due to active sinus infection. She was treated with oral antibiotics and is completing a steroid taper (3 days left). She is also due for IVIG which we will coordinate locally 0.4 mg/kg IV as well as refill for her Bactrim DS Thursday and Thursday for pneumocystis prophylaxis. We had originally discussed potentially transitioning to Teclistamab in [place] but we are not an approved site for this by specific antibody therapy. Dr. Gross notes that he will readmit Mojgan on 11/04/2023 for next cycle of Teclistamab since there has been a 6-week delay since her last dose and she may have recurrent CRS. I will continue to follow herevery 3 months or sooner as needed and we can coordinate her local IVIG scores between her to closeto Mab dosing. This is a high complexity 1 hour visit for history and physical, lab review, review of current management [facility], and personal communication with her treating oncologist. 07/08/2023: Mojgan had her virtual consultation with Dr. Lindquist of [facility] on 06/26/2023. He had discussed treatment optionswith her given her worsening cytopenias and generalized pain and fatigue. Possible by specific monoclonal antibody therapy versus CAR-T therapy. He also remarked that her prior bone marrow biopsy may have underestimated the degree ofher myeloma since it may have been performed at the site of prior radiation. Hewill be seeing her at [facility] this 07/23/2023 to evaluate her in person and potentially consent her for 1 of these therapy options. I did informthe patient that she may require repeat bone marrow biopsy at that time. W e arecontinuing to hold her active therapy with Kyprolis and Cytoxan due to persistent cytopenias, most recently her white blood cell count is 1600, absolute neutrophil count 800, platelet count 26,000. Although she does have extremity bruising she does not have any concerning bleeding from any orifice and has not had any active infection. She will follow-up with me tentatively in3 months with CBC, CMP, and myeloma labs transfer her care to Dr. Lindquist forfurther therapy at [facility]. It is possible that if she tolerates antibody treatment well that we may be able to transfer her therapy her low 35- minute follow-up for coordination of care with [facility]. 06/10/2023: Mojgan is unaccompanied today--scheduled to see Dr. Lindquist tomorrow but she noted a family emergency and feels she cannot travel there tomorrow. I contacted him and he agrees to changeto a virtual visit. Increased bruising but no epistaxis, mucosal bleeding, or bright red blood per rectum. No worsening of bone pain or baseline neuropathy. Platelets remain low30,000 to high 20,000 range. WBC 1700 with ANC about 1000. Uptrending lambda light chain now to 241. I asked Dr. Lindquist to evaluate for potential bispecific antibody therapy or CAR-T option for myeloma. I will continueto hold therapy for another month (last Kyprolis/Cytoxan given 6 months ago) and will f/u around 4-6 weeks to review recommendations from Dr. Lindquist and f/u myeloma labs. Moderate complexity 30 minute f/u. 03/11/2023: Mojgan is here for follow-up of bone marrow aspiration and biopsy performed in interventional radiology on 02/24/2023 as well as follow-up F-18 PET/CT. She has continued right hip pain andsaw nurse practitioner Pearl Holder the day after her bone marrow biopsy. She started oxycodone 10 mg 4 times daily as needed with continued gabapentin 400 mg on an as-needed basis. She previously received radiation to the right hip in July-August 2021 over 15 elapsed days--I am reluctant to repeat radiation to this area unless pain is refractory to oral medications. The PET/CT from 03/09/2023 showed relatively patchy abnormal radiotracer accumulation in the skeletal structures that similarto prior exam consistent with her multiple myeloma but no new areasof radiotracer accumulation. Theright hip uptake looks relatively stable from prior PET/CT in March 2022. The bone marrow aspirate and biopsy showed low cellularity for age about 10% with 4% clonal plasma cells by immuno chemistry and 0.7% of lambda mononuclear plasma cells on flow cytometry with a population of atypical CD10 positive B cells. She had presence of stainable iron stores 1+and no evidence of amyloid deposition. Her peripheral blood platelet count is now 28,000 and she does not have any active bleeding. She did have extensive bruising after her bone marrow biopsy. She has not had any recent infections and received 1 treatment with IVIG in early January. -- At this time I recommend holding active therapy for her myeloma given her cytopenias and plasma cells less than 10%. We will continue to follow CBC every2 weeks for her platelet count this month and if relatively stable continue CBC monthly. I will also send vitamin B12, folate, copper, ceruloplasmin, and iron panel to see if we can optimize her from a nutritional standpoint to improve herthrombocytopenia. This may also be due to her hepatic steatosis. Her next follow-up with me with myelomalabs to include quantitative immunoglobulins and kappa/lambda light chain analysis will be in 3 months or sooner as needed. Thisis a high complexity visit over 45 minutes for review of bone marrow biopsy and imaging results, discussion of continuing to hold further therapy (Kyprolis/Cytoxan last given December 2022), and plan nutritional labs with follow-up phone call with results. 02/18/2023: One month followup--still off active therapy with Kyprolis/Cytoxan past 2 1/2 months dueto persistent thrombocytopenia and initiation of IVIG for admission for urosepsis 01/28/2023. Despite off therapy, she has persistent low platelets 35,000 without bleeding. Uptrending kappa light chain to 60s. Notes recurrent right hip pain--I recommended repeating F-18 PET/CT to determine if bony progression with right hip/pelvis/femur film. Will also set up IR guided bone marrow biopsy--review results in 3 weeks and decide whether to resume active therapy. If lytic lesion at hip/acetabulum/femur concerning for potential fracture, will refer to orthopedics for possible prophylactic kenton. Stillno contact from Dr. Benavidez for bispecific antibody therapy. Moderate complexity 35 minute followup. 01/09/2023: Here for followup after consult with Dr. Benavidez last week. Progress note is still pending, but we communicated by secure text regarding her evaluation. Myeloma labs are stable with mild increase of serum kappa from 40s to 60s range. Platelet count now to 68 and ANC 900 since holding Kyprol is/Cytoxan since 12/05/2022 for cytopenias. We decided to hold 2 more weeksthen resume Kyprolis at same dose 20mg/m2 and further decrease Cytoxan to 40% dose overall when we resume dose. Next line of therapy at progression may be CD3/BCMA myeloma bispecific antibody Teclistamab (needs to be hospitalized firstweek due to risk of cytokine release syndrome). Plan to resume likely in 2 weeks if adequate blood counts and no infection. F/u with myeloma labs (CBC, CMP, quant immunoglobulins and kappa/lambda light chains) in 2 months, sooner prn. Moderate complexity 30 minute followup. 12/26/2022: Mojgan continues to have nasal drainage sinus congestion and pain despite completing 2 weeks of amoxicillin and no air-fluid level on CT Sinuses 11/30/2022. We gave last dose of Kyprolis/Cytoxan (60% dose) on 12/05/2022. Peripheral neuropathy is stable, no diarrhea, no skin rashes. We reviewed her labs with ANC 900, platelets 37,000 and she notes easy bruising but no nasal/oral mucosal, GI or bleeding. I will again hold Kyprolis/Cytoxan another 2 weeks and give 2 weeks of Augmentin 875/125mg bid for her persistent sinus infection and Diflucan 100mg daily for vaginal candidiasis. Will formallyrefer back to Dr. Benavidez to see if she is a candidate for the CD3/BCMA myeloma bispecificantibody therapy which she would need to receive at [facility]. F/u with me in 2 weeks--if persistent cytopenias we may need torepeat her bone marrow biopsy (if now performed by Dr. Benavidez). She agrees with this plan over this 35 min moderate complexity followup visit. 11/26/2022: Mojgan is here for monthly followup on modified CYKLONE therapy. Notes increased frontal headaches over the past with with nasal congestion--sending for sinus CT and 2 week course of Augmentin bid. Platelet count recently dropped as low as 25-31,000 without bleeding (currently 40,000), WBC to 1300 with ANC 700. No current fever, chills or symptoms of infection. Prior dose reductions of Kyprolis to 20mg/m2 weekly with cyclophosphamide 240mg/m2 weekly). Echo with normal EF 55-60%. We will further dose reduce cyclophosphamide to 180mg/m2 (overall 40% dose reduction) and maintain Kyprolis at 20mg/m2. She has ongoing decline of lambda light chains over the past 6 months indicating response. I discussed her case with Dr. Piter Benavidez who notedtherapy could be held if worsening cytopenias. For now continue monthly followup with myeloma labs (quant immunoglobulins and kappa/lambda light chains). Bleeding precautions and f/u sooner if new symptoms arise. Moderate complexity 35-minute visit for review of complex labs and adjustment of chemotherapy regimen. 10/29/2022: I asked Mojgan to return today due to cytopenias on labs and discussion of either dosereduction or changing therapy. She notes that over the last 2 weeks she has had cough, body aches, worsening fatigue, but no fever. She was diagnosed with a non-COVID viral syndrome. Her symptoms arestarting to get better but she has more significant cytopenias with absolute neutrophil count of only 400 with total white blood cell count 1000. In addition her platelet count is 31,000 she has not had any active bleeding issues. We were unable to contact her to tell her not to come in for chemo but I decided to see her today since she was last evaluated by nurse practitioner last 2 visits. Hermyeloma labs show relatively stable lambda light chains which appear to have responded since start oftherapy in July. She is due for her echocardiogram and due to her cytopenias we will hold therapy today and plan 1 level dose reductions of both cyclophosphamide (from 300 to 240 mg/m2 IV weekly)with Kyprolis dose reduction (from 27 to 20mg/m2 IV weekly). She has been off therapy past 2 weeks due to cytopenias. If she is unable to resume therapy we may consider an alternate therapy such as Blenrep. She is otherwise in agreement with current plan of care. Moderate complexity 35-minute visitfor review of complex labs and adjustment of chemotherapy regimen. 10/15/2022: Mojgan is here for follow-up for her multiple myeloma on modified CYKLONE therapy. Shecontinues to do well and remains active at home. She deniesshortness of breath, chest pain, nausea,vomiting, diarrhea or constipation. Sheis eating and drinking well. No fevers, chills, sweats, bleed ing or rash. She does note mild tongue soreness and on exam it appears she may be developing thrush, very mild currently on the tongue only. We will prescribe nystatin for this. Labs are reviewed andstable overall, ok for treatment. She will follow-upin 4wks with Dr. Marinelli with repeat labs and treatment. 09/17/2022: Mojgan is here for follow-up on modified CYKLONE therapy for her multiple myeloma. Shecontinues with fatigue, but otherwise no new complaints. She has no s/s of infection, no shortness of breath, chest pain, n/v/d or other concerns. In review of her labs, her WBC are 1.4, ANC 0.6 and platelets 43,000. Per Dr. Marinelli, given no s/s of infection and she otherwise feels well, she is okfor treatment. We discussed signs to report related to infection such as fever, chills, etc. and she will call with any concerns. We will follow-up in 3wks withrepeat labs. 08/20/2022: Mojgan is here for 3-week follow-up on modified CYKLONE therapy (cyclophosphamide 300 mg/m2 IV weekly, dexamethasone 20 mg IV weekly, and carfilzomib now 56 mg/m2 IV weekly). Baseline echocardiogram 07/18/2022 showed normal ejection fraction 60 to 65%. I discussed her case with Dr. Benavidez who advised that despite her significant thrombocytopenia she should be treated withfull dose cyclophosphamide/carfilzomib and may support with transfusions as needed. The patient's lowest platelet counts were in the 30,000's after her first week of therapy but now is up to 56,000. She has not hadany clinical bleeding. She also has persistent leukopenia 1900 today with absolute neutrophil countnow 1000. At this point as long as she does not have any significant symptoms of therapy or signs of infection or active bleeding we willcontinue her current dosing. She otherwise notes mild fatigue but no other toxicities. Prior skin rash on Pomalyst has resolved. She will follow-up in 3 weeks fortoxicity check with nurse practitioner and we will order her restagingmyeloma labs with serum protein electrophoresis with immunofixation, quantitative immunoglobulins, and kappa/lambda light chain ratio. She may return soonerif new issues arise. Moderate complexity follow-up over 30 minutes to address cytopenias on CYKLONE therapy. 07/10/2022: Mojgan is here for 2-month follow-up of myeloma labs. No changes in medical history and platelet count remains in the 40-50,000 range without bleeding. We held her Pomalyst (as well as daratumumab) this week due to absolute neutrophil count of 300 without any recent infections. She previously held it for 1 week due to neutropenia, took 1 tablet, then had to hold a second week due to neutropenia. We reviewed her kappa/lambda light chain ratio which continues to progress in the wrong direction (total lambda light chains now increased from 109 to 125.7 with ratio from 0.11 to 0.08). Her progressive cytopenias and worsening light chains likely reflects progression of myeloma. We could repeat her bone marrow biopsy but her most recent bone marrow biopsy on10/09/2021 showed hypercellular bone marrow (30%) with slight megakaryocytic and granulocytic hyperplasia and only 1.5% plasma cells (Lambda restricted by flow cytometry). This likely would not change her current management and I discussedher case with Dr. Benavidez of malignant hematology who recommended considering carfilzomib (Kyprolis) with cyclophosphamide. I will contact patient to coordinate baseline echocardiogram forKyprolis and likely she will require dosereductions for her underlying hepatic dysfunction and chronic cytopenias. AfterI reviewed dosing with Dr. Benavidez and pharmacy and review her echocardiogram, wewill coordinate follow-up for change in therapy and chemotherapy consent. For now we will continue daratumumab with altered dose of Pomalyst to 2 mg twice weekly ( and Mondays) until change in therapy. I will not likely send dose reduction of Pomalyst due to planned change in therapy. Moderate complexity 35 minutes for coordination of care. 05/07/2022: Improved rash on 2 mg of Pomalyst, now mild pruritus. Platelet count is 48,000 without bleeding issues. Continues weekly prednisone. Daratumumab isnow monthly since early April. Repeat kappa/lambda light chain ratio slightly higher (106 to 109) But the upward trend is starting to flatten out. F-18 Axumin PET/CT shows no new lesions, relatively stable from 1 year ago. For now given her stable symptoms and pronounced cytopenias, we will continue her current dosing daratumumab/Pomalyst/dexamethasone. Next follow-up with me in 2 months. She will return sooner for issues arise. Moderate complexity visit over 35 minutes. 04/09/2022: Mojgan continues every 2-week durvalumab with Pomalyst now 2 mg daily (dose reduced due to diffuse rash). She is now day 14 of the cycle and isnoted to have platelet count of 40,000 (no associated mucosal bleeding, bright red blood per rectum, or hematuria). No recurrent rash on this dose. She continues her weekly prednisone. I recommended changing her schedule of Pomalyst to 2 mg daily for days 1 through 14, off days 15 through 28 cycle and continuing daratumumab. Her most recent immunoglobulins have shown a steady trend upward for lambda light chain and decrease of kappa/lambda light chain ratio, however since she is now stabilizing her dosing of daratumumab/Pomalyst/dexamethasone I recommend continuing her current dosing for1 more cycle with repeat kappa/lambda light chain ratio in another month. In addition I will set her up for F-18 Axumin PET/CT to compare to PET/CT from 1 year ago (her skeletal survey showed no lesions 6 months ago). She denies any current bone pain.She will proceed with daratumumab dose as previously orderedtoday. 03/19/2022: Mojgan is here for follow-up after adverse cutaneous reaction to her first cycle of Pomalyst. She noted that after starting her first dose of Pomalyst 3 mg daily on 03/05/2022 that about 1 week later on 03/13/2022 she had a diffuse rash all over that was pruritic with increased erythema. She did not have nausea, vomiting, constipation, diarrhea, dyspnea, or any other adverse reactions. She did have a decline of platelet count to 41,000 this week which may be due to her Pomalyst. She called the pharmacy and was instructed to discontinue Pomalyst on 03/13/2022. Her rash has mostly resolved with no furtherpruritus but she still has a few macular lesions over the legs. She has been using Benadryl and topical cortisone cream with improvement of the rash. Otherwise her laboratories are stable. She does have an increased kappa/lambda light chain ratio from 03/05/2022 but this was her first day of therapy. I recommended resuming Pomalyst at next dose level 2 mg daily as soon as new medic ation arrives for 3 weeks on 1 week off. If she has recurrent rash she will again stop and we will consider further dose adjustment. Due to her thrombocytopenia we will hold her daratumumab today andconsume with first day of Pomalyst next week. She may follow-up in about 3 to 4 weeks, possibly with virologist covering at that time. Patient expressed understanding. 02/19/2022: Mojgan is here for follow-up--no new symptoms but her platelet countdropped to 48,000 last week and we are again holding her Revlimid. She has not had any bleeding or infection recently, but she has had uptrending lambda light chains and we discussed changing her therapy from lenalidomide to pomalidomide and continuing her daratumumab which is currently every other week. Her only other concern is constipation which is likely related to her pain medications. ANC was 800 today. --Today we reviewed chemotherapy counseling for lenalidomide in combination withdaratumumab/dexamethasone (stopping Revlimid). Common toxicities were reviewed to include allergic reactions, myelosuppression, thrombosis, fatigue, nausea, vomiting, constipation, diarrhea, mouth sores, and risk of secondary malignancies. Other toxicities may include pneumonitis, neurologic, hepatic and renal toxicities. The patient signed informed consent and will follow-up as directed. Planning a trip to [place] on March 06, therefore we will hold Revlimid until arrival of her pomalidomide, then have oral chemotherapy visit. We are starting pomalidomide at 3 mg daily days 1 through 21 every 28 days due to baseline liver dysfunction. Follow-up cycle 1 week 2. We will recheck her baseline myeloma labs on start day of pomalidomide with daratumumab. 01/22/2022: Mojgan has no new complaints. She was seen by Dr. Benavidez at for evaluation for transplant and CAR-T options but given her profound thrombocytopenia, neither of these options are felt tuyet optimal for her. She has had gradual worsening of her lambda light chains without any change of r enalfunction or hypercalcemia. Her chronic thrombocytopenia has remained in the 40-50,000 range which is lower than her prior baseline. I reviewed her options with Dr. Benavidez and it is difficult to assess best options due to her chronic thrombocytopenia but standard of care at this point would be tocontinue her daratumumab and transition from the lenalidomide to pomalidomide. We will follow closely with weekly CBCs to determine if thrombocytopenia worsens on thisregimen. I will defer changing her regimen for 1 month since she is starting a new cycle of lenalidomide and has had slow progression of her lambda light chains. She will return in 1 month and will discuss pomalidomide and signed inf ormed consent. Patient is in agreement with this plan. 12/18/2021: Mojgan is here for 3-month follow-up. She has not had any significant changes in medical history other than testing positive for coronavirus infection in early November 2021. She has not been immunized for coronavirus. She notes persistent fatigue but no bone pain. No other recent infections or bleeding episodes. She recently changed from weekly to now every 2 weeks daratumumab 16 mg/kg and remains on low-dose lenalidomide 5 mg daily for2 weeks on 1 week off due to prior thrombocytopenia worsening. October 2021 skeletal survey showed no osteolytic lesions suggestive of myeloma. Initially she had improvement of her platelets to 70-100,000 but today platelets are down to 54,000. She also had some improvement of leukopenia but this is again down to 2800 with ANC 1300 today. Urinerandom M spike is not observed, but she has had progressive increase of her lambda light chains from 30 in December 2020 to 60.2 in October 2021. [place] lambda ratio has also started to decline to 0.21 in October 2021. For now I'm continuing her daratumumab with Revlimid at current dosing, but I contacted Dr. Benavidez at [facility] for CAR-T celleligibility. If he has recommendations to change her therapy, I will let her know. Otherwise I will have her follow-up with me in 1 month (she will have repeat myeloma labs 1 week prior to visit). 09/20/2021: After telephone consultation with Dr. Benavidez at , we resumed repeat loading doses of weekly daratumumab 16mg/kg and changed to low dose lenalidomide 5mg daily. She has had 2 courses of antibiotics for sinus infection over the past month and was noted to have neutropenia with ANC 900, platelets 44,000 week 2 of Revlimid, therefore this was held for one week and resumed Thursday after ANC returned to 1000. Platelet counts have persisted at 40-50,000 range without active bleeding. Otherwise tolerating therapy well. Still improved hip pain and ambulation after recent course of palliative radiation therapy. For now we will continue Daratumumab with Revlimid and Dexamethasone as ordered with weekly CBC. Gradually increasing lambda light chains--pending evaluation at for CAR-T celltherapy eligibility (has not yetbeen contacted for appointment). 4 week f/u with me with CBC, CMP, and myeloma labs (follow quant immunoglobulins and [place]/Lambda light chain ratio with skeletal survey in 2 weeks so results available for appointment). 08/30/2021: Mojagn is here for 2-week follow-up for completion of her palliative radiation therapywith significant improvement of pain in her right hip and pelvis. [facility] [place] [facility] baseline for possible Kyprolistherapy. This returned with ejection fraction 60% which is normal with grade 1 left ventricular diastolic dysfunction and 1+ tricuspid valve regurgitation and traceto 1+ aortic valve regurgitation. Otherwise unremarkable. I discussed her casewith Dr. Benavidez of malignant hematology at [facility]. He advised against Kyprolis therapy given her underlying liver dysfunction and recommended repeating loading doses of daratumumab weekly as well as low-dose lenalidomide which we will start at 5 mg daily since she has chronic thrombocytopenia. We will send for CAR-T therapy as a possible therapeutic option. The patient agreed with changing daratumumab to weekly and we will have her sign consent next week for change to low-dose lenalidomide therapy. Next follow-up with me will be in about 2 weeks for week 2 lenalidomide with daratumumab. 08/16/2021: One month followup, she recently completed palliative radiation therapy to right hip and pelvis. Platelet count still in 50,000 range with increased bruising but no bleeding. Still has some pain in right hip but slowlyimproving after radiation therapy. Slowly worsening lambda light chain --she is scheduled for ECHO next week. We discussed possibly changing therapy from Daratumumab, Velcade, Dexamethasone to Kyprolis, low dose lenalidomide, dexamethasone if adequate cardiac function. I will discuss this with Dr. Benavidez for dosing and determine if CAR-T therapy is another possible option (although we may be limited due to chronic thrombocytopenia and liver disease). Followup 2-3 weeks to review results and possible consent for change in therapy. 07/17/2021: 2-month follow-up on multiple myeloma. She reports that Thursday she developed severe painin the right leg that started proximal to the knee creating it to the hip. She had increased pain with weightbearing on the right and has been using a walker at home secondary to this. She did not feel a pop or shift in ambulation, but has been using her Percocet for pain control at home. In reviewing her laboratories platelet count remains in the 52,000 range and she is otherwisPe tolerating daratumumab well. I recommended sending for right hip, femur, and knee plain film imaging that did not show any fracture. She does have a gradually rising lambda light chain but no other significant changes in her labs. I reviewed her case with Dr. Cheng of orthopedic surgery who also reviewed her prior PET/CT showing uptake in this area. We will obtain a right hip MRI, keep her completely nonweightbearing on the right leg with walker for transfers and she has an urgent orthopedic follow-up following her MRI. I will follow-up with her in 1 month to review management and we will determine if she requires prophylactic kenton for stability of the hip based on herMRI. 05/24/2021: Here to followup 05/03/2021 bone marrow biopsy--noted to have decreased cellularity 25%, flow cytometry with 0.2% plasma cells and a 1.5% monoclonal B- cell population. FISH showed 13q and 1qabnormalities but normal cytogenetics. No myelodysplasia seen. I reassured her that recent thrombocytopenia is more likely related to splenic sequestration from liver disease and not worsening myeloma. For now continue current regimen. Will alsorecheck B12, folate, and iron profile with next labs--followup in 2 months with myeloma labs, sooner prn. 04/24/2021: 1 month followup to review PET/CT. Over the past 2 days, she notes episodes of sharp left sided neck pain over sternocleidomastoid muscle and mastoid area. No radiculopathy down left upperextremity. No new side effects of Daratumumab. F18 PET/CT shows largely unchanged diffuse uptake through multiple bony sites in axial and articular skeleton. Lambda light chains rising over past 2 month and decline of platelet count to 57,000 without bleeding. MRIof thoracic spine did not show significant thoracic canal stenosis. Due to worsening neck pain with extensive uptake on F18 PET/CT--we will send for cervical MRI. Palliative medicine has increased Percocet to tid. We will repeat bone marrow biopsy due to rising lambda light chain and falling platelet count to determine if progressionof myeloma noted. This will be scheduled in the next 1-2 weeks. 03/28/2021: 2 month followup for multiple myeloma. More recently notes neck andleft shoulder pain. Fatigue and constipation stable. Labs show stable anemia and thrombocytopenia. Serum M-spike now asymmetric gamma (no quantifiable spike). Slowly improving IgG to near normal. [place]/lambda light chain ratio normal with mildly increased lambda light chains. MRI of thoracic spine for evaluation of increasing left shoulder pain. For now we will continue current dosing of Daratumumab and recheck F18 PET/CT for response in late April 2021. 01/21/2021: Mojgan is accompanied by her daughter for 2 month followup--now Daratumumab maintenance. She notes persistent fatigue and recently added as needed laxatives to stool softener for management of constipation. Persistent left hand pain--correlates to an area of bone uptake on PET/CT. Overall F18 PET/CT appears stable with no new areas if FDG avidity (still extensive bone FDGuptake). We reviewed prior plain xrays of left hand from November--she agrees toevaluation by orthopedic surgery (determine if biopsy or steroid injections). M-spike and kappa/lambda light chains pending. CBC (platelets 60-70,000); CMP stable. Will followup in 2 months with exam and labs. 11/26/2020: Mojgan is accompanied by her daughter for 2 month followup--now Daratumumab maintenance. Stable leukopenia/low platelet 70,000. Notes 3 days of hematuria and mild dysuria. Sending UA and possible culture. Otherwise no new bone pain. Blood sugars stable. M-spike and kappa/lambda light chain ratiostable. Next f/u 2 months after one year f/u PET/CT to determine response to therapy. 09/24/2020: Mojgan presents (accompanied by her daughter) for cycle 8, week 2 followup [id number] mg/kg IV weekly, Dexamethasone 20mg weekly, and Velcade 0.7 mg/m? now sq once weekly for every 3-week cycle (21 days). She notes neuropathy symptoms are stable. Tolerating therapy well without fatigue. No bleeding and thrombocytopenia stable in 60-70,0000 range. On 10/02 she will be due for maintenance therapy with Daratumumab alone once per month. I will f/u with her in 2 months with myeloma labs, sooner as needed. Velcade and Dexamethasone will be stopped after 8 cycles. 08/13/2020: Mojgan is here for cycle 6, week 2 (day 14) daratumumab 16 mg/kg weekly, Velcade 0.7 mg/m? now sq once weekly for every 3-week cycle (21 days), and dexamethasone 20 mg weekly. No new symptoms--improving thrombocytopenia to 79,000 and improved leukopenia. 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 Still has improvement of M-spike, IgA normal and decreased lambda light chain and K/L ratio. We discussed that week 25 in Oct she will change to monthly daratumumab with weekly Velcade (1mg/m2) and Dexamethasone. Continue to follow every 6-8 weeks until maintenance schedule. 06/18/2020: Mojgan is here for cycle 3 week 3 (day 21) daratumumab 16 mg/kg weekly, Velcade 0.7 mg/m? now sq once weekly for every 5-week cycle (35 days), and dexamethasone 20 mg weekly. Tolerating well with stable leukopenia and thrombocytopenia. Mild increased symptoms of hand and foot neuropathy, but no limitation in activity. Now following with diabetes management clinic with variable glucosecontrol. We reviewed lower IgA (now M-spike IgG kappa after Daratumumab--previously IgA lambda). Lambda light chain has decreased from 516 to 41.3 to now 18.5 with normalization of K/L ratio. Continue followup myeloma labs in 6 weeks, visit in 8 weeks. 05/21/2020: Mojgan is here for cycle 2 (week 7 overall) daratumumab 16 mg/kg weekly, Velcade 0.7 mg/m? now sq once weekly for every 5-week cycle (35 days), and dexamethasone 20 mg weekly. Tolerating well with stable leukopenia and thrombocytopenia. No significant neuropathy. Noted to have improvement in lambda light chains. No further daratumumab infusion reactions. No infections,stable constipation, pain control improved. No other complaints. Continue monthly f/u with myeloma labs. --Diabetes management--added insulin on dexamethasone days. Hyperglycemia improving. 01/18/2020 (phone followup)--The patient's son was available by phone and her daughter was contactedin a separate phone call as patient presented unaccompanied due to COVID-19 precautions in our clinic during the current epidemic. Bone marrow biopsy results were reviewed as follows from procedure pe rformed 01/26/2020: --Bone marrow biopsy was suboptimal for evaluation. --Increased lambda light chain restricted monoclonal plasma cells (1.9% by flow cytometry, approximately 6% and aspirate count, but 50% by immunohistochemical stains [id number]). Sideroblastic iron present, negative for ring sideroblasts. Peripheral blood smear with mild red blood cell anisocytosis and polychromasia, leukopenia with absolute neutropenia (1000) and thrombocytopenia (54,000) consistent with prior baseline. Note: I discussed the results with Dr. Crook 01/26/2020. Preliminary findings were also discussed with Dr. Cummings 01/27/2020. Morphologic findings, immunohistochemical stains, flow cytometry, and ancillary studies may under represent the extent and severity of disease. The results of FISH myeloma panelwith prognostic markers and cytogenetic analysis are pending. --Given the patient's hip pain and presence of lytic lesions, she meets clinicalcriteria for activemyeloma. Given her hip pain and lytic lesions in weightbearing areas she was offered radiation therapy. She had a limited courseof hypofractionated palliative therapy to bilateral proximal femurs [address] Ahn. We discussed that given the COVID-19 epidemic and absence of othersignificant changes other than bony lesions (normal renal function, normal calcium, stable cytopenias), I would defer active therapy for myeloma for 4 to 6 weeks. Since she has significant history ofliver disease I will discuss her case with Dr. Piter Benavidez at [facility] malignant hematology for optimal regimen. The patient is not a transplant candidate given her nonalcoholic steatohepatitis and chronic thrombocytopenia but may be a candidate for either doublet therapy (Revlimid/dexamethasone) or triplet therapy with either Velcade/Revlimid/dexamethasone or daratumumab/Revlimid/dexamethasone. --02/03/2020: Mojgan presented unaccompanied for follow-up of bone marrow aspiration and biopsy performed by Dr. Abel Fanning in my absence on 01/26/2020 for evaluation of multiple myeloma with progression from smoldering myeloma to now active myeloma with multiple areas of focal radiotracer uptake of the cervical spine, thoracic spine, lumbar spine, pelvis, and hips on PET/CT. The patient had been noting increased left hip pain over the past several months andplain films of the pelvis and bilateral femurs did show subtle lucencies in the bilateral proximal femurs corresponding to PET/CT findings but no other additional sclerotic lesions identified. No pathologic fractures were seen. --03/05/2020: Mojgan notes improvement of bilateral hip pain since radiation. No other changes in medical history in the past month--no infections, normal renal function, no hypercalcemia. Stable platelet counts without bleeding. Shewas given written literature regarding Dexamethasone, Velcade (thatwould be dose reduced to 0.7mg/m2 twice weekly), weekly Daratumumab and Revlimid, but I will defer decision of which regimen to use until discussion in malignant hematology tumor board. Also referring for infusion port placement prior to initiating therapy. Sign informed consent prior to initiating therapy. --Discussed with Dr. Benavidez who favors Daratumumab combination--will request prior liver biopsy and records from [facility] liver clinic. The patient and her son (by telephone) expressed understanding and will follow- up as directed in 2 weeks for consent and likely start of therapy. --04/02/2020: Mojgan presents after infusion port placement at [facility] by interventional radiology due to platelet count 40,000--she had increased bruising at site post procedure, but this has completely resolved. Her hip painis well controlled since completion of palliative radiation and no newareas of pain. She has previously reviewed information regarding Daratumumab (first dosesplit 8mg/kg IV D1,D2, then if well tolerated 16mg/kg IV weekly), Velcade at about 50% dose (for liver dysfunction) 0.7mg/m2 D1,D4,D8, D11, and [id number] IV weekly--repeat for every 3 week cycles 1st 3 cycles. She will take chemo class and likely start therapy within 2 weeks with toxicity visit in 3 weeks. Today we reviewed chemotherapy counseling for Daratumumab, Velcade, and Dexamethasone. Common toxicities were reviewed to include infusion reaction including rash/dyspnea/wheezing, myelosuppression, fatigue, nausea, vomiting, constipation, diarrhea, mouth sores, and alopecia. Other toxicities may in cludepneumonitis, neurologic, thromboembolism, hyperglycemia, hepatic and renal toxicities. The patient signed informed consent and will follow-up as directed. --04/19/2020: Mojgan is here for cycle 1 week 2 daratumumab 16 mg/kg weekly, Velcade 0.7 mg/m? twice weekly for first 2 weeks of every 3-week cycle, and dexamethasone 20 mg weekly. She did have an infusion reaction with first daratumumab with dyspnea and flushing but this improved after first dose and shehas not had recurrent infusion reactions. We have continued Velcade despite platelet counts in the 40,000 range without bleeding as we know that her baseline platelet counts remain in this range and she has not had any significant change from her baseline. Dexamethasone has caused hyperglycemia with blood sugars up to 400 and we are referring to diabetes management clinic. Otherwise she denies any significant nausea, emesis, fever, chills, night sweats, constipation, diarrhea, rash, mouthsores, or alopecia. She has not hadany change of baseline neuropathy. Liver function tests remain stable. She notes that her hip pain is well controlled since prior palliative radiation and she saw radiation oncology earlier this week with no new recommendations. I will send her myeloma labs including serum and urine protein electrophoresis, quantitative immunoglobulins, and serum kappa/lambda light chains in 2 weeks andfollow-up with her in 3 weeks. She may be seen sooner if new issues arise. This is a now 68-year-old lady on chronic disability has a history of arthritis,diabetes mellitus, hypertension, COPD, GERD, and fibromyalgia who [facility] [place] [facility] chronic mild to moderate thrombocytopenia. She states that she was followed withDr. Kumari prior to his senior care and was told that she had an elevated protein level as well as thrombocytopenia but never had clinical bleeding. She is 4 para4 without complications and was never told that she was thrombocytopenic while . She is had multiple prior surgical procedures without any clinical bleeding. She had been recommended for a pain procedure with but he declined to do the procedure because her platelet count was less than 100,000. For this reason she received 2 platelet transfusions, with little improvement of her platelet count and hersecond transfusion resulted in throat tightening due to allergy to platelets . She has never beentreated with steroids and has never been told that she has immune thrombocytopenia. She has mild leukopenia with relative neutropenia, absolute neutrophil count of 400-800 and mild lymphocytosis. Hemoglobin is normal. She has not had any bright red blood per rectum or epistaxis. She has no history ofbleeding within the family however does have a mother and sister diagnosed with colon cancer, a brother diagnosed with lung cancer, and another sister diagnosedwith breast cancer. She had prior pain in the right hand mainly at the first MCP joint with some associated swelling and right foot pain and was evaluated by podiatry. She was told that her blood tests were negative forgout. She had screening with MALLORY, CCP, and rheumatoid factor all of which were negative. She says that she previously saw Dr. Petersen for cirrhosis but did not know of any specific therapy. Wereviewed these findings from her liver ultrasound ordered by Dr. Benavidez Summer 2016. Initial consultation with me March 16, 2017. --The patient has been followed by me for some time for diagnosis of smoldering myeloma with a prior bone marrow biopsy May 2017 showing 15% plasma cells but the patient remained asymptomatic without bone pain or other CRAB criteria for therapy. She is also noted to have an ascending aortic aneurysm and has chronicliver disease with cirrhosis secondary to nonalcoholic steatohepatitis. She haschronic thrombocytopenia without bleeding ranging from 50-100,000 this is felt to be due to sequestration from her nonalcoholic steatohepatitis. She was previously on a liver transplant list but was recently notified that she is no longer a candidate for liver transplant. She has had chronic pain from f ibromyalgia but noted increasing bilateral hip and upper thigh pain over the last 6 months. She also is followed for EGD/colonoscopy with last documented procedure 09/21/2018: 1. Normal EGD, 2. Mild sigmoid diverticulosis, 3. Internal hemorrhoids, grade 2, 4. Anal fissure with active bleeding cauterized by bipolar cautery Bone osseous survey in June 2019 showed osteopenia and degenerative changes but no lytic or blastic lesion. Patient had an F-18 PET scan 01/02/2020 which showed multiple areas of involvementof bones with increased SUV activity. She was contacted with these results by phone and I recommended bone marrow aspirate and biopsy for assessment and analysis. Her prior labs were reviewed. Her SPEP does not show anymonoclonal gammopathy. On VAHID there appears to be a trace of monoclonal gammopathy. Free light chain ratio is less than 100. There is no evidence of renal sufficiency. Patient is not anemic. She doeshave some abnormal areas on bone scan. Summary of Therapies Summary of Therapies: 1. 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 2. She underwent a single dose of palliative radiation therapy to bilateral hips, receiving 800 cGyto right and left hip in 1 fraction in separate vaz (with a single isocenter). The treatments were given with AP/PA vaz MV photons and MLC blocks. 3. Deferred active therapy for myeloma 2 months given COVID-19 epidemic with increased risk of myelosuppression and viral transmission of contacts. --Follow-up 03/05/2020 I discussed her case with Dr. Piter Benavidez at malignant hematology. --Given her significant hepatic dysfunction, I presented her case at malignant hematology tumor board to discuss optimal therapy. 4. Cycle 1 day 1 04/10/2020: Dose reduced Velcade 0.7 mg/m? twice weekly (day 1,day 4, day 8, day 11)every 3 weeks with dexamethasone 20 mg weekly and daratumumab 16 mg/kg weekly of each 21-day cycle.After first week, Velcade decreased to 0.7mg sq weekly due to thrombocytopenia. --We will need to watch liver function, platelet count, and neuropathy closely on Velcade. 5. Cycle 9 day 1 10/02/2020: Daratumumab 16mg/kg once monthly maintenance therapy until progression. 6. 07/31/2021: Palliative radiation therapy to right supra chondral/soft tissuearea of hip which is PET positive. She received a dose of 3000 cGy in 10 fractions from 07/31/2021 to 08/15/2021 over 15 elapsed days 7. 08/30/2021: Right hip pain improved after radiation. Due to disease progression with persistent cytopenias, changed to repeat loading doses of daratumumab 16 mg/kg weekly for cycles 1 through 3 with Revlimid 5 mg daily for 3 weeks on 1 week off. Held Revlimid second week due to neutropenia with sinus infection, resumed 3 days ago (09/17/2021). Referred for CAR-T therapy evaluation. 8. 12/18/2021: Daratumumab is now 16 mg/kg every 2 weeks with Revlimid 5 mg daily for 2 weeks on 2 weeks off due to neutropenia and thrombocytopenia. Stillpending evaluation for CAR-T therapy. 9. 01/22/2022: Patient is not deemed a candidate for stem cell transplant or CAR- T therapy at this time. Discussed changing from current Revlimid to pomalidomide with continued daratumumab 16 mg/kg every 2 weeks. Plan change in therapy in 1 month. 10. 02/19/2022: Continue daratumumab 16 mg/kg IV every 2 weeks and changed to pomalidomide now 3 mg daily days 1 through 21 of each 28-day cycle (lower dose due to baseline liver dysfunction) -- 03/19/2022: Patient was noted to tolerate Pomalyst only 1 week (03/05- 03/13/2022)due to grade 3 rash. This resolved after stopping medication 1 week later. 1 dose level reduction Pomalyst to 2 mg daily days 1 through 21 of each 28-day cycle. Also holding daratumumab daily for platelet count of 41,000 and will resume at full dose with first dose of Pomalyst. -- 04/09/2022: Platelet 40,000 without bleeding. Will continue monthly Daratumumab with change of Pomalyst to 2mg D1-14 each 28 day cycle (off 2 weeks due to low platelets). Rising lambda light chains,unable to tolerate Pomalyst due to cytopenias, stopped mid 07/2022. 1107/18/2022: carfilzomib (dose 20mg/m2 day one then 27mg/m2 D8, D15) with cyclophosphamide 300mg IV weekly and weekly dexamethasone. Baseline echocardiogram EF 60-65%. We will follow closely for her chronic cytopenias andliver dysfunction. -- 10/29/2022: Regimen on hold for past 2 weeks due to cytopenias. Today with ANC 400, holding another week and will reduce dose of carfilzomib to 20mg/m2 IV weekly with cyclophosphamide 300-->240mg/m2 IV weekly, continue weekly dexamethasone. -- 11/26/2022: ANC 700, Platelets 40,000. Continue carfilzomib 20mg/m2 IV weekly with cyclophosphamide 300-->240-->180mg/m2 IV weekly, continue weekly dexamethasone. -- Carfilzomib/cyclophosphamide on hold since 12/04/2022 due to cytopenias, pending evaluation by for bispecific antibody therapy. --01/09/2023: Improving cytopenias ANC 900, platelets 68,000. --02/18/2023: Still on hold since 12/04/2022 (if resumed will give carfilzomib 20mg/m2 IV weekly with cyclophosphamide 300-->120mg/m2 IV weekly. 02/24/2023 bone marrow with 4% plasma cells, hypocellular 10%. Continue to hold active therapy for myeloma 03/2023 and 06/2023 visits. --Virtual visit 06/26/2023: Second opinion with Dr. Lindquist at --in person visit scheduled 07/23/2023 for possible by specific antibody therapy versus CAR-Teligibility. 12. Teclistamab received at 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 Second dose of Teclistamab weekly (08/17, [...] IVIG 0.4 mg/kg every 3 months at [facility]--now monthly at -- Teclistamab on hold for pulmonary symptoms as per HPI, cough, injection reactions. -- Teclistamab-cqyv subcu 25 mg once every 3 weeks with dose modification 0.03 mg/kg dose 1 on 08/06/2023, then dose changed to 0.6 mg/kg (49 mg)--most recent records from 09/06/2025 with Teclistamab dose 117 mg (about 95% of standard dose 1.5 mg/kg) now every 3 weeks. -- Cycle 10-day 1: 100% dose 123 mg to start mid September 2024 at [facility]. --Previous doses held cycle 2-day 22 and 28 due to COVID, cycle 3-day 22 and 828for persistent cough then restarted cycle 4-day 01 February 2024. Doses were changed from weekly to every other week 02/23/24. Doses were changed to every 3 weeks 05/24/2024 --IVIG 20 g about once every 4 to 6 weeks with hydrocortisone injections 100 mg each IVIG infusion.IVIG resumed for IgG less than 400 [facility] Intake Vitals/Pain Assessment 09/15/24 09:53 Height 5 ft 2 in Weight 82.1 kg BMI 33.0 Body Fat % 49.64 BP 102/68 Blood Pressure Location Lt brachial Position Sitting Temp 97.1 F L Temp Source Temporal Pulse 85 Pulse Source NIBP Respiration 16 Pulse Oximetry (%) 98 Oxygen Delivery Method room air Are you having pain? Yes Pain Location legs and hips chronic Intake Visit Reasons: consent for tx here, follow up visit Accompanied by: Daughter Allergies diclofenac (From Voltaren) Allergy (Unknown, Verified 09/14/24 10:17) Hives doxycycline (From Vibramycin) Allergy (Unknown, Verified 09/14/24 10:17) Hives moxifloxacin (From Avelox) Allergy (Unknown, Verified 09/14/24 10:17) Hives erythromycin base (From E-Mycin) Allergy (Verified 09/14/24 10:17) Hives Pt has tolerated azithromycin without issue. latex Allergy (Verified 09/14/24 10:17) Unknown Reaction Quinolones Allergy (Verified 09/14/24 10:17) Unknown Reaction tetracycline Allergy (Verified 09/14/24 10:17) Unknown Reaction - Last Reconciled 09/15/24 by CAITLIN Cardoso acyclovir 400 mg PO BID 90 days atorvastatin 40 mg (1/2 x 80 mg) PO DAILY Breztri Aerosphere 160-9-4.8 mcg/actuation (kavilrfcqt-dqtbthly-fjoatjwszu) 2 inhalations inhalation BID 30 days NS carvedilol 12.5 mg PO BID cetirizine (Zyrtec) 10 mg PO DAILY PRN cholecalciferol (vitamin D3) 125 mcg PO DAILY cyanocobalamin (vitamin B-12) 1,000 mcg sublingual DAILY duloxetine 60 mg PO DAILY epinephrine 0.3 mg IM ONCE PRN fluticasone propionate 50 mcg/actuation 1 spray intranasal DAILY PRN furosemide (Lasix) 20 mg PO QAM gabapentin 400 mg PO TID 30 days melatonin 2 mg PO QHS metformin ER 500 mg PO DAILY naloxone 4 mg/actuation 1 spray intranasal Q2-3M PRN olanzapine 2.5 mg PO QHS ondansetron 8 mg PO Q8HR PRN oxycodone 10 mg PO Q4-6H PRN 30 days pantoprazole 40 mg PO DAILY potassium chloride ER TAKE 1 CAPSULE BY MOUTH EVERY DAY semaglutide (Ozempic) 0.25 mg subcut QWEEK sodium chloride 3% 3 mL inhalation TID 30 days sodium chloride 0.9% 3 mL inhalation Q12HR 30 days sulfamethoxazole-trimethoprim 800-160 mg 1 tab PO QMWF 90 days sumatriptan succinate take 1 tab at onset of headache; if no relief may repeat 1tab after at least 2 hrs; max = 4 tabs/24 hr PO Gastrointestinal Bowel Protocol for Opioids Given: Yes Bowel Pattern: Irregular Bowel Movement Aid(s): Stool Softener Falls Fall Precaution Measures Taken: Patient in chair Nurse's Note: Patient is here today for a follow up visit and discuss future treatments [facility] Medical History Medical History (Updated 09/16/24 @ 08:30 by Fabiola Marinelli MD) Thrombocytopenia Neuropathy Acute alteration in mental status 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 Fibromyalgia DM2 (diabetes mellitus, type 2) Smoldering multiple myeloma (SMM) Neuropathy Hypertension Multiple myeloma Temporary low platelet count COPD (chronic obstructive pulmonary disease) PFT: 02/24/2024 -FEV1/FVC: 70% -FEV1: 87% -FVC: 95% -ZUV23-00%: 60% -Bronchodilator response: None -RV: 118% -T% -DLCO: 71% -Flow-volume loop: Mild obstruction Smoldering myeloma Fibromyalgia Neutropenia Diabetes Iron deficiency Smoldering multiple myeloma (SMM) GERD (gastroesophageal reflux disease) Aortic aneurysm monitoring Surgical History Surgical History H/O knee surgery 2006 History of appendectomy H/O: hysterectomy 1994 History of cholecystectomy 1989 Family History Family History Brother Cancer lung Hypertension COPD (chronic obstructive pulmonary disease) Alcoholic Father Cancer Asthma Emphysema lung Hypertension Alcoholic Family/Other 3 brothers :2 sisters Grandparent Diabetes Maternal Grand Mother Mother Cancer colon Heart disease Hypertension Sister Cancer Legacy FamHx Problem: Diagnosed with Cancer Social History Social History Smoking status: Former smoker Nicotine containing products detail: quit in 1999 Within the past year, how often did you have a drink containing alcohol: never AUDIT-C Alcohol total score: 0 AUDIT-C Alcohol score interpretation: A score less than 3 is consistent with normal alcohol consumption. In the past 12 months, have you used illegal drugs or prescription drugs for non-medical reasons?: No Review of Systems Constitutional: No Chills, No Diaphoresis, mild improvement of chronic fatigue since starting Teclistamab BiTE at , no Fever, No Malaise, No Night Sweats, NoWeakness, No Weight Gain, No Weight Loss Gastrointestinal: No Abdominal Pain, No Black Stool, No Bloating, No Bloody Stool, positive for constipation, No Diarrhea, No Dysphagia, No Hematemesis, No Nausea, No Postprandial Pain, No Rectal Bleeding, No Rectal Pain, No Vomiting, Other (chronic gastroesophageal reflux stable) --As per HPI patient was hospitalized at [facility] April 2020 for spontaneous bacterial peritonitis secondary to Enterobacter. She has longstanding nonalcoholic steatohepatitiswith cirrhosis, followed by [facility] hepatology and [facility] gas troenterology. Cardiovascular: No Chest Pain, No Edema, No Palpitations, No Syncope. Recurrent A-fib followed by [facility] cardiology. Genitourinary: No Discharge, No Dysuria, No Flank Pain, Frequency (chronic andunchanged), Resolved Hematuria, No Incontinence, No Nocturia, No Urgency, No Urinary Retention Musculoskeletal: Stable symptoms of left shoulder and neck pain as per HPI (no thoracic cord compression). Stable right hip/thigh pain; stable intermittent lumbar back pain, No Chest Wall Tenderness,Improvement of prior Joint Pain, Muscle Stiffness, Myalgia (history of fibromyalgia), --unremarkable skeletal survey June 2019. 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 12/2020: F-18 PET/CT stable. 04/2021 F-18 PET/CT stable. Right hip pain mildly improved after palliative radiation. 04/30/2022 repeat Axumin F-18 PET/CT stablefrom 1 year ago. 06/29/2024: Ordering 1 yearfollow-up examination F-18 PET/CT and will review results with Dr. Lena WEIR (pending) HEENT: + frontal headache and sinus tenderness/congestion--improved since recent antibiotics and steroids. No Blurred Vision, No Discharge, No Ear Pain, No Epistaxis, No Sore Throat --patient was seen in emergency department November 2019 with persistent epistaxis. She was treated with nasal clip and packing and was advised to continue Afrin. No recurrent bleeding. 2 courses of antibiotics in Aug-Sep 2021 for recurrent sinusitis. Respiratory: Follow-up with Dr. Raymundo of pulmonary medicine this week, recurrentproductive yellow sputum, Shortness of Breath (chronic and unchanged due to COPD), No Wheezing--shortness of breath with daratumumab reaction dose 1 04/10/2020 (given a split dose over 2 days). No pulmonary complications o BiTE therapy. Neurological: No Dizziness, Stable Numbness/Tingling (reports long-standing bilateral foot numbness--unchanged since starting low-dose Velcade 04/10/2020), No Pre-existing Deficit (no history of strokeor seizure), intermittent headache. No neurologic ICANS complications o BiTE therapy Hematologic/Lymphatic: No significant bleeding thrombocytopenia from sequestration/myeloma disease,Bruises Easily, No Enlarged Lymph Nodes, Other (reports allergy to prior platelet transfusion, prior allergy to IVIG at --no recent reactions) Endocrine: Excessive Sweating (hot flashes, postmenopausal) Flushing, No Intolerance to Cold, Intolerance to Heat Psychiatric: No Depressed Mood, No Insomnia Integumentary: No Jaundice, No Lesions, no rashes. No injection site reactions. Allergic/Immunology: No significant rash or pruritus. Physical Exam EXAM ECOG PS 2, Pain 7/10 hips and back (chronic) Patient is alert and oriented x3. HEAD / FACE: Normocephalic. No tenderness to palpation over scalp, no sinus tenderness to palpation. EYES: Pupils are equal and reactive to light. Conjunctivae and lids are benign in appearance. Ocular movement intact. EARS: Hearing grossly intact. NOSE / MOUTH / THROAT: No frontal/mild bilateral maxillary sinus tenderness. Nooral thrush or aphthous ulcerations. NECK / THYROID: No cervical adenopathy on exam. Thyroid is symmetrical, withoutthyromegaly, masses or palpable nodules. RESPIRATORY: Normal inspection. Lungs clear to auscultation and percussion--positive rhonchi clearing with cough. No wheezing, rales, or rubs. Normal effort but frequent cough. CARDIOVASCULAR: Regular rate and rhythm. No murmurs, gallops, or rubs. ABDOMEN: Bowel sounds normoactive. Soft, nontender and non-distended. No hepatosplenomegaly. No masses. INTEGUMENTARY: No suspicious lesions or rash. Scattered arm bruising. No petechiae noted. MUSCULOSKELETAL: Normal musculature, normal ROM upper and lower extremities, no crepitus. EXTREMITIES: No leg edema. No cyanosis or clubbing. NEUROLOGICAL: Alert and oriented. Cranial nerves intact. No gross motor or sensory deficits, patient ambulates unassisted. PSYCHIATRIC: No anxiety or evidence of depression. Results - [facility]) LAB RESULTS Outside labs reviewed from [facility], most recently 05/24/2024: White blood cells 2700, hemoglobin 8.9, hematocrit 27.8, platelet count 57,000 Glucose 103, calcium 8.1, sodium 135, potassium 4.0, BUN 12, creatinine 0.68, ALT 16, AST 27, alkaline phosphatase 137, total bilirubin 1.2 Most recent quantitative immunoglobulins: IgG 576, IgA less than 7, IgM less than 5, serum protein electrophoresis with hypoalbuminemia and decrease of polyclonal gamma globulins Ig kappa 0.08 (lower limit of detection), Ig lambda less than 0.17, cannot calculate kappa/lambda light chain ratio ~~~~~~~~~~~~~~~~~~~~~~~~~~~~~~~~~~~~~~~~~ Labs from [facility] 09/06/2024: IgG 312, IgA less than 7, IgM less than 5, IgG kappa free light chain0.08, IgG lambda 0.17, no detectable M spike but decrease in polyclonal gammaglobulins on protein electrophoresis. WBC 2500, hemoglobin 9.3, hematocrit 20.5, platelet count 57,000, absolute neutrophil count 1090 Corrected WBC 2.7 X10E3/uL (3.8-11.6) L 09/15/24 10:57 09/15 Hgb 9.9 g/dL (11.8-15.4) L 09/15/24 10:57 09/15/24 Hct 30.5 % (34.0-46.4) L 09/15/24 10:57 09/15/24 MCV 82.2 fl (80-100) 09/15/24 10:57 09/15/24 RDW 18.1 % (11.9-15.3) H 09/15/24 10:57 09/15/24 Plt Count 56 x10E3/uL (150-450) L 09/15/24 10:57 4 Sodium 141 mmol/L (136-145) 09/15/24 10:57 09/15/24 Potassium 4.3 mmol/L (3.5-5.1) 09/15/24 10:57 09/15/24 BUN 16 mg/dL (7-25) 09/15/24 10:57 09/15/24 Creatinine 1.00 mg/dL (0.60-1.20) 09/15/24 10:57 09/15/24 Glucose 71 mg/dL (70-100) 09/15/24 10:57 09/15/24 Est GFR (CKD-EPI) > 60.0 mL/Min 09/15/24 10:57 09/15/24 Calcium 8.8 mg/dL (8.6-10.3) 09/15/24 10:57 09/15/24 Total Bilirubin 0.9 mg/dl (0.3-1.0) 09/15/24 10:57 09/15/24 AST 33 U/L (13-39) 09/15/24 10:57 09/15/24 ALT 15 U/L (7-52) 09/15/24 10:57 09/15/24 Alkaline Phosphatase 99 U/L (34-104) 09/15/24 10:57 09/15/24 Total Protein 5.4 gm/dL (6.4-8.9) L 09/15/24 10:57 09/15/24 Albumin 3.8 gm/dL (3.5-5.7) 09/15/24 10:57 09/15/24 Tumor Marker AFP 4.4 ng/mL (0.0-9.2) 09/15/24 10:57 09/15/24 RADIOLOGY/IMAGING RESULTS No new imaging for review. Social Determinants of Health Screening Social determinants of health last assessed in clinic: 09/16/24 Will the patient participate in the screening?: Yes Do you worry about having a steady place to live?: No In the past 12 months, have you had to go without electric, gas, oil, or water in your home?: No Have you or anyone in your house had to go without enough food to eat?: No Has lack of reliable transportation kept you from medical appointments or from doing things needed for daily living?: No Has anyone in your support network made you feel unsafe for any reason?: No Does the patient want assistance with any of the above?: No Dictated By: Fabiola Marinelli MD DD/ [id number] Signed By: <Electronically signed by MD Fabiola Marinelli> 09/16/24 0849 [facility] Work Phone: Progress note Author Fabiola Yves [facility] Date/TimeMay 2024 10:00[facility] [place] [address] Cancer Center Note Signed Patient: Mojgan Pérez MR#: [id number] : 1955 Acct:[id number] Age/Sex: 69 / F Type: DEP AMB Date of Service: 03/16/25 Copies to: Yinka Lopez MD~ Assessment & Plan A/P (1) Encounter for antineoplastic immunotherapy: Plan: Teclistamab received at 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 Second dose of Teclistamab weekly (08/17, 08/25, 09/01, 09/08) with changing threshold notification for platelets less than35. She has not had any bleeding complications due to thrombocytopenia. She was scheduled for third cycle ofweekly Teclistamab beginning 09/15/2023 but this was held due to positive COVID-19 infection on 09/12/2023. Plan to admit to 11/04/2023 for next cycle of Teclistamab (will need to observe for recurrentCRS due to significant delay since last dose) -- Resume IVIG 0.4 mg/kg every 3 months at [facility]--now monthly at --Previous doses held cycle 2-day 22 and 28 due to COVID, cycle 3-day 22 and 828for persistent cough then restarted cycle 4-day 01 February 2024. Doses were changed from weekly to every other week 02/23/24. Doses were changed to every 3 weeks 05/24/2024. -- Teclistamab-cqyv subcu 25 mg once every 3 weeks with dose modification 0.03 mg/kg dose 1 on 08/06/2023, then dose changed to 0.6 mg/kg (49 mg)--most recent records from 09/06/2025 with Teclistamab dose 117 mg (about 95% of standard dose 1.5 mg/kg) now every 3 weeks. -- Cycle 10-day 1: 100% dose 123 mg started 09/28/2024 at [facility]. Tolerated well, continue every 3-week therapy. -- No change in regimen 12/29/2024 follow-up. May need upcoming platelet transfusions for biopsy/microwave ablation of liver for suspected HCC if platelets less than 50,000. Stable neutropenia with ANC 500. Awaiting myeloma labs from today. --02/03/2025: ANC 900 and platelets 49,000. No indication for Teclistamab-cqyv dose reduction but shehas a planned vacation leaving next Thursday and she will delay next Teclistamab by one week. Resume current dose with next f/u withme with myeloma labs in mid March. --IVIG 20 g about once every 4 to 6 weeks with hydrocortisone injections 100 mg each IVIG infusion.[facility]. [facility] monthly at [facility] (IgG was 313 on last labs 12/29/2024). Recheck mid March 2025 (pending at time of appointment). 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 She has high risk cytogenetics and I [facility]. Her persistent thrombocytopenia made her ineligible forany clinical trials, and prevented her from receiving local pain procedures given her chronic low back pain. --05/2017 PET/CT images and reports performed for staging to exclude bone involvement with myeloma. 2 indeterminate areas of uptake thought to be degenerative arthritis vs early bone findings of myeloma (right parietooccipitalarea and upper sternum). She has remained asymptomatic [...] showed no lytic lesions and she has stableshoulder, hand, and right SI joint pain (although likely due to fibromyalgia. --Prior osseous survey 07/01/2019 showed osteopenia but no compression fractures or lytic lesions were identified. She had no significant change in myeloma labs(mild increase of urine M-spike, kappa/lambda ratio, and normal serum M- spike and quant immunoglobulins). Urine protein still undetectable, therefore will continue surveillance every 6 months with the same labs--no hypercalcemia, renaldysfunction (or proteinuria), anemia, or new bone symptoms. [...] proteins with urine M spike 43.1 but totalprotein 34.4, with no reported urine creatinine. --We deferred immunosuppressive chemotherapy for about 1 month due to control ofsymptoms after palliative radiation and concern of potential peak of COVID-19 inlate January early March. --She presented for follow-up 03/05/2020 and we discussed potential therapy options (son available byphone). --I discussed her case with Dr. Piter Benavidez of malignant hematology, possibly presenting the patient in hematology tumor board at [facility]. --Infusion port placed 03/22/2020 at [facility] due to low platelets. No complications. --03/12/2020: Myeloma labs with no serum M-spike, + urine M spike 22.2mg/24h (14%). Immunofixation IgA lambda specificity. IgA normal 227, Serum kappa 20.6, serum lambda 516.7, Free kappa/lambda ratio0.04. Normal renal function and calcium. Lower ANC 600 and platelets 40,000 --04/10/2020: Started cycle 1 day 1 of weekly dexamethasone 20 mg IV (careful to watch blood sugars with diabetes and known hepatic dysfunction), decreased dose of bortezomib 0.7 mg/m? twice weekly for2 weeks on 1 week off (due to known liver disease and thrombocytopenia), and daratumumab 8mg/kg D1,D2 IV first week,then 16 mg/kg IV weekly and we may consider Revlimid as a 4th medication if needed (deferred for worsening neutropenia and thrombocytopenia--I am reluctant to add this therapy initially). ----- ---- --01/21/2021: One year f/u F18 PET/CT with stable FDG avidity, monoclonal labs (SPEP, Quant Igs, kappa/lambda ratio) all pending. Stable CBC and CMP. Persistent pain left hand 2nd MCP joint--increaseduptake on PET/CT but no lesion on left hand xray from 11/2020. Sending for ortho evaluation. For nowcontinue once monthly Daratumumab. F/u with myeloma labs and exam in 2 months, sooner prn. --05/24/2021: Bone marrow biopsy does not show significant progression although poor prognosis mutation 1q with 13q on FISH. Hypocellular with recent worseningplatelets without bleeding--will recheck B12, folate, and ferritin. [...] sent for plain films of the hip femurand knee showing degenerative changes but no acute [...] progression although she still has slow rise inlambda light chain and platelet count remains in [...] check. She will sign Revlimid consent Thursday. Sheis in agreement with this plan. --09/20/2021: Started daratumumab loading doses weekly with Revlimid on 09/04/2021. Held therapy forANC 900 and platelet 42,000 with sinus infection, now resolved and resumed Revlimid 5mg daily on 09/17. Will continue therapy as prescribed with weekly CBC and hold Revlimid as needed for cytopenias.Evaluation for [facility]T therapy at [facility]. Send myeloma labs and skeletal survey [...] current cycle of Revlimid with change to pomalidomide4 mg daily, follow weekly CBCs after change in therapy and determine optimal dose based on symptomsand cytopenias. Patient is in agreement with this plan. Next follow-up with me in 1 month and we will defer next light chain analysis until 1 month after change in therapy. --02/19/2022: Continued rise in lambda light chains and worsening thrombocytopenia. Today we reviewed informed consent for adding pomalidomide 3 mg daily days 1 through 21 every 28 cycle 2 every otherweek daratumumab. We are dropping Revlimid due to [...] initial cycle was only given 03/05-03/13/2022. Now thatradha has complete resolution of symptoms she may resume pomalidomide at 1 dose level reduction 2 mg daily for days 1 through 21 of each 28-day cycle. We are also holding her daratumumab today due to declining her platelet count 41,000 without bleeding. Repeat kappa/lambda light chain ratio was increased 80 on 5 4but this was her first dose of pomalidomide. Plan anticipate arrival of pomalidomide within the next 1 to 2 weeks and she may resume daratumumab on day1 of therapy. Her next follow-up will be [...] for following myeloma show normal mild increase herfree lambda from 87 to 106, kappa/lambda ratio decreased 0.10-0.09. I will give her 1 more month ofpomalidomide with daratumumab and dexamethasone. The pomalidomide dose will be changed to 2 mg p.o.days 1 through 14, off days 15 through [...] bony lesions. Her kappa/lambda light chain ratio remainsrelatively stable since early March (0.09-0.11) with free lambda light chainsnow relatively stable (106-109). I advised continuing her current regimen and reevaluating with kappa/lambda light chain ratio in 2 months. Continue current dosing and close observation due to platelet count 48,000. No signs or symptomsof infection. Patient is in agreement with this plan. --07/10/2022: Mojgan has no new symptoms, but continued cytopenias with 2 weeks of pomalidomide helddue to recurrent neutropenia and persistent thrombocytopenia (40-50,000). Continued uptrending lambda light chains consistent with progression of myeloma. 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 --09/17/2022: Mojgan is here for cycle 3 of modified CYKLONE regimen. She continues to do ok with only mild fatigue, no other new complaints or s/s of infection. She is ok to treat per discussion with Dr. Marinelli despite low WBC, ANCand platelets. She will follow-up in 3 weeks [...] CBC, CMP, SPEP, VAHID, immunoglobulins, and FLC. Sheis in agreement with this plan and has no questions. --10/29/2022: Stable symptoms on current therapy. Recent viral infection with worsening cytopenias.She has been off weekly therapy for the last 2 weeks due to cytopenias, therefore we will hold 1 further week and if her blood counts meet parameters, she will have dose reduced Carfilzomib 27-->20mg/m2 IV weekly, Cyclophosphamide 300-->240mg/m2 IV weekly, and Dexamethasone 20mg IV/po weekly. She is overdue for echo which was ordered today and we will check results beforeresuming therapy. Next follow-up with me in 6 weeks or sooner as needed. [place]/lambda light chains were reviewed and doshow partial response over the last 3 months. We will continue to follow at least every 2 to 3 months while ontherapy. . No longer a candidate for Blenrep--access removed by FDA for limitedefficacy. Moderate complexity 35 minute followup visit. --11/26/2022: No new symptoms with ongoing response of lambda light chains but persistent cytopenias. In absence of new symptoms of infection or bleeding, we will continue therapy with further dose reduction of cyclophosphamide to 180mg/m2 IV weekly with stable dose Kyprolis 20mg/m2 IV weekly and Dex amethasone. Discussed with Dr. Benavidez at --he would support holding therapyand observation if persistent cytopenias and consider bone marrow biopsy. For now will continue monthly followup and myeloma labs every 1-2 months. She may be a candidate for bispecific antibody in the future if refractory or intolerantof current therapy. Echo stable cardiac function EF [...] persistent cytopenias and sinusitis. She now has MDM118 and platelets 37,000 without bleeding. Relatively stable lambda light chains in 40s range. I will hold therapy another 2 weeks, give Augmentin 875mg bid x 2 weeks for persistent sinusitis (no airfluid levels on CT scan), and send referral to Dr. Benavidez for possible CD3/BCMA bispecific antibody therapy (risk of cytokine release syndromewith first dose, requires inpatient observation at a [...] first week due to risk of cytokine releasesyndrome). Nextfollowup with myeloma labs in 2 months, sooner prn. 30 minute moderate complexity followup. --02/18/2023: No active therapy since 12/04/2022--platelets have not improved. Continued uptrending kappa light chains (now 60s range). 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 Worsening right hip/leg pain--repeat PET/CT to determine if bony progression (plain film without obviouslytic lesion right hip/femur). Will set up IR guided bone marrow biopsy to evalwhether persistent cytopenias due to progression vs. therapy related MDS. Hold Kyprolis/Cytoxan and if no progression or MDS on bone marrow biopsy, we will resume lower dose Cyclophosphamide 120mg/m2 IV weekly,Kyprolis 20mg/m2 IV weekly, and Dexamethasone 20mg weekly. [...] cells in addition to a 12% atypical clonalB-cell population on flow cytometry. Given her hypocellularity and low percentage of plasma cells despite increasing lambda light chains onperipheral blood, we will continue to hold her [...] CBC monthly and follow-up with her in 3months with CBC, CMP, quantitative immunoglobulins and kappa/lambda light chains. She may return sooner if new issues arise. High complexity 45-minute visit for review of bone marrow biopsy, imaging,complex medical testing,discussion of plan. --06/10/2023: Stable right hip pain and neuropathy. Off active therapy with cyclophosphamide, Kyprolis, and dexamethasone since 12/2022. Platelet count still 28,000 without active bleeding. Hemoglobin stable at 10 but worsening [id number] with ANC 1000. Rising lambda light chains [...] leukopenia over the last 3 months with nowabsolute neutropenia ANC 800 without any recent infections. Platelet count is now down to 26,000 without active bleeding but marked bruising of the extremities. Hemoglobin is stable at 10.5 with normal renal function and calcium. She has a scheduled in person follow-up with Dr. Supa Lindquist on 07/23/2023 where she will review potential eligibility for these novel therapies that are not available at [facility]. We did discuss potential risk of cytokine release syndrome with by specific antibody therapy that would require a short hospital admission at [facility]. For now we set up afollow-up visit in 3 months with myeloma laboratories, sooner if requested byDr. Lindquist. Patient is in agreement with this plan over this 35-minute moderate complexity visit for coordination of care with [facility]. --10/21/2023: As summarized in the HPI, Mojgan has been on active therapy with Dr. Lindquist of malignant hematology at [facility] since initiation of Teclistamab by specific antibody forrefractory myeloma. This was initiated 08/04/2023 with inpatient admission for ramp-up phase. She had grade 1 CRS (fevers) and ICANS (suzanna ICE score 8/10). She then received cycle 2-day [address] [facility] from 08/17 through last dose 09/08/2023. Her third cycle was delayed due to positive COVID-19 on 09/12/2023 treated with Paxlovid in [place]. She was to resume therapy with Teclistamab on 10/13 but had a recurrent sinus infection treated with antibiotics and steroids by Dr. Chante alcantar. She received IVIG 09/22/[address] [facility] for IgG level lessthan 400. We wrote orders today to resume IVIG here in [place] due to her recurrent infections and persistent pancytopenia(ANC 1000, platelets 35-40,000)secondary to known liver disease/KAPADIA cirrhosis. -- We are unable to deliver Teclistamab therapy locally due to pharmacy control issues and she willcontinue Teclistamab at [facility]. I personally spoke to Dr. Lindquist by [...] prophylaxis. We will continue to follow her withmyeloma labs CBC, CMP, quantitative immunoglobulins and kappa/lambda light chains every 3 months and primary follow-up for myeloma will be at [facility]. High complexity 1 hour visit. -- 01/21/2024: Updated history from [facility] from patient, notes scanned in, and telephone conversation with Dr. Gross. Continues monthly IVIG (most recent one week ago). We discussed potentially resuming fungal prophylaxis due to persistent cough and infectious workup below. T eclistamab on hold per Dr. Gross. Continue regular followup at . Virtual followup of CT sinusand chest when complete (1-2 weeks) and pulmonary medicine consult for possible bronchoscopy. Patient agrees with this plan. After virtual followup to review imaging, I will follow locally in 3 months to coordinate local care. 45 minute high complexity visit. --06/29/2024: Follow-up for malignant myeloma in pancytopenia secondary to cirrhosis from steatohepatitis with Dr. Lindquist. She continues Teclistamab therapy every 3 weeks at [facility] with IVIG infusions. Since last visit with me she had hospitalization for sepsis due to spontaneous bacterial peritonitis. 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 I reviewed her most recent myelomalabs showing undetectable kappa and lambda light chains, M spike unable to detect due to hypoalbuminemia, and undetectable IgM and IgAwith IgG reflecting her monthly IgG infusions. She has not had a follow-up bone marrow biopsy sincestart of therapy. Her last restaging PET/CT was over a year ago and I will order whole-body exam andF-18 PET/CT and forward results to Dr. López. I am investigating with our sourcing assistant whether we can transition her Teclistamab infusions to [facility] if we are able to obtain supply of the medication and coverage by insurance. I will communicate with Dr. López whether it is feasible to transition her care locally prior to the winter. If she continues follow-up in [place] we will follow with her every 6 months for local supportive care. We have also reviewed notes from gastroenterology, pulmonary medicine, palliative care, and outside notes from [facility]. High complexity 45-minute visit with 30 minutes coordination of care. --09/15/2024: Patient has been followed at [facility] for Teclistamab therapy, but now that she has been stable for over a year and we have appropriate licensing and in-service here [facility], we will transfer Teclistamab therapy for primary follow-up at [facility]. Orders are written to proceed next [...] 2 weeks to review tolerance of therapy hereand results of myeloma labs and PET/CT, then we will likely follow every 6 weeks on therapy. High complexity 45-minute follow-up for transfer of care and utilization of novel bi-specific T-cell effector cell (BiTE) therapy. [id number] additional 30 minutes preparation of orders and review of outside laboratories and documentation of Teclistamab therapy at [facility]. --10/05/2024: Here for follow-up after initial dose of Teclistamab therapy at [facility] 09/28/2024. She tolerated this well with no concerning symptoms from last visit 3 weeks ago. Laboratories reviewed showing stable leukopenia with ANC 800 and no signs or symptoms of infection. Hemoglobin stable at 9.9, platelet count stable at 53,000 without bleeding. Normal renal and hepatic function. [place] and lambda light chains are below the limits of detection therefore these willbe followed about every 3 months. IgG is up to 594 and she does not require IVIG today. Will check quantitative immunoglobulins with CBC and CMP every 6 weeks and follow-up about every 6 weekswith every 3- week dosing of Teclistamab. Her PET/CT was stable from prior PET with no new areas of bony involvement. Recent liver ultrasound with possible mass lesion that is pending MRI liver ordered by later this month we willfollow-up with patient. Likely will have a screening AFP at that time aswell. Follow-up with me in 6 weeks with [...] see her sooner after her evaluations at [facility] as noted below. High complexity 45-minute follow-up of multiple comorbidities. --12/29/2024: Here for Teclistamab and follow-up labs were drawn this morning therefore we do not have them for review. Stable neutropenia with white blood cell count 2000, ANC 900. Normal creatinine 1, calcium 9.2. Addressed leg painover the last few weeks with labs showing iron deficiency therefore we will arrange Injectafer infusions as noted below. Quantitative immunoglobulins and kappa/lambdalight chains repeated with labs today and will be reviewed when heidyurns for her next follow-up in about 6 weeks after her hepatic ablation procedure. We are coordinating platelet transfusion if needed if next Thursday CBC shows platelets less than 50,000. She may return sooner if new issues arise. High complexity 45-minute follow-up of multiple core morbidities, coordination of care with her [facility]. Ez's upcoming procedure and new diagnosisof iron deficiency with leg pain coordinating Injectafer infusions. --02/03/2025: Her last Teclistamab dose was 01/19/2025 with subsequent labs 01/30/2025 showing white blood cell count 2400, ANC 900, hemoglobin improved to 11.4, platelet count slightly lower at 49,000 without bleeding issues. She received Venofer last month with improvement of iron saturation from 7.8to now 33.7 and ferritin from 9.9 to now 674. Liver function test showed normal total bilirubin, normal ALT and AST, but mildly elevated alkaline phosphatase around the time of teclistimab dose. She has planned trip, leaving next Thursday for one week. OK to hold next dose of Teclistamab one additional week (which also should help with mild worsening of neutropenia and thrombocytopenia). High com plexity 45 followup to review prior colorectal surgery [...] function. Due for restaging MRI liver early Aprilafter hepatic ablation in early December. Will needpremedication with Valium prior to MRI. Otherwise follow-up MRI results in about 1 month. Return sooner if new issues arise. High complexity 45-minute follow-up of multiple comorbidities. (3) Hepatocellular carcinoma: Plan: 10/05/2024: Screening ultrasound ordered by gastroenterology due to cirrhosis secondary to nonalcoholic steatohepatitis. This study 09/19/2024 showed a hyperechoic lesion in the right liver lobe 2.6 x1.9 x 1.8 cm. 11/16/2024: Dr. Sanchez contacted me with results of MRI of the liver 10/24/2024. Baseline AFP was normalbut MRI features of a segment 7 lesion 2.6 cm in greatest diameter consistent with hepatocellular carcinoma. She agrees to referral to [facility] interventional radiology for consideration of potential embolization therapy versus ablation. She may require platelet transfusions for future interventions. I will follow-up with her after her IR evaluation to review plan. 12/29/2024: I reviewed the note from virtual visit with Dr. Flores--scheduled for biopsy and microwave ablation of the right hepatic lobe hepatocellular carcinoma on 01/05/2025. Checking CBC next weekand will transfuse 1 unit of platelets if platelet count less than 50,000 (currently 62,000 withoutbleeding). Follow-up with me in 6 weeks following procedure to review pathologyand coordinate surveillance plan. 02/03/2025: This is the first follow-up since she underwent a microwave ablation of right liver lobe hepatocellular carcinoma at [facility] on 01/05/2025. Tolerated well without residual pain. Followup MRI due in 3 months after ablation (mid April 2025). 03/16/2025: No abdominal pain and stable liver function test. Alpha-fetoprotein is pending. Follow-up MRI ordered for early to mid April with follow-up of results thereafter. Premedication with Valium due to claustrophobia. (4) Iron deficiency anemia: Plan: Patient had severe bilateral leg pains last week delaying her visit by 1 day. Idecided to check heriron studies and she had anemia with hemoglobin 9.4, iron saturation 7.8% and ferritin 9.9. Given her multiple comorbidities we will giveInjectafer 750 mg weekly x 2 and check iron studies and CBC with her follow- up in 6 weeks. 02/03/2025: She received Venofer last month with improvement of iron saturation from 7.8 to now 33.7 and ferritin from 9.9 to now 674. Will continue to followup hemoglobin with repeat iron studies if recurrent hemoglobin decline. 03/15/2025: Hemoglobin stable at 12.4. Continue to follow iron studies every 3 months. (5) Hemorrhoids, complicated: Plan: She has had over 1 year of complicated hemorrhoids with prolapsing lesions and increased pain. In the short-term we will give her Anusol suppositories and topical lidocaine for symptoms, however I amsending her to colorectal surgery to determine if she could have a local procedures to relieve her hemorrhoids. She is too high risk for surgery here due to chronic thrombocytopenia and KAPADIA cirrhosis. We will follow-up recommendations after her colorectal surgery evaluation. 12/29/2024: Reviewed recommendations from colorectal surgery GLASS CUT OFF SUPERVISOR who noted the patient was too high risk for surgery due to chronic thrombocytopenia. Now using compounded lidocaine and steroid suppositories with improvement of perirectal pain and no active bleeding. 02/03/2025, 03/16/2025: Delayed followup one day due to uncontrolled [...] hemorrhoidal pain and no current bleeding issues. (6) Bilateral leg pain: Plan: Bilateral leg pain stable after prior iron infusions. Improved symptoms noted with myeloma lab f/u in mid March and at this time we will defer repeat PET/CT forrestaging myeloma. 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 [facility] through diet and exercise that may prevent further fatty infiltration that may further impairher liver function. [facility] hepatology discussed liver transplant but sheis likely no longer a candidate for this given active myeloma. We chose least hepatotoxic regimen for treatment of her active myeloma with 50% dose reduction of Velcade. Liver function remained stable since start of therapy 04/10/2020. --Requested prior liver biopsy and [facility] liver clinic records. Dose reduction 20% Kyprolis due to KAPADIA with cirrhosis (normal bilirubin and transaminases). Stable LFTs on now Teclistamab therapy at [facility], transition to [facility]. Now followed by Dr. Sanchez at [facility]. 11/16/2024: Sending to [facility] interventional radiology for new diagnosis of HCC and will determine if she is a candidate for local therapy withembolization or ablation. 12/29/2024, 02/03/2025, 03/16/2025: Continue follow-up with Dr. Sanchez [facility] gastroenterology. 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 monthly. 09/15/2024: With transition Teclistamab therapy to [facility], we will also arrange ongoing IVIG every 4 to 6 weeks locally. Proceedingwith IVIG next week due to most recent [...] if there is any indication for IVIG. 02/03/2025: Now continue monthly IVIG at [facility] since transfer of care from . Recent UTI but quantitative immunoglobulins are still pending at the time of this visit. Next quantitative immunoglobulins will be reviewed at f/u visit in about 3 months mid June. (9) Bone marrow hypocellularity: Plan: Hypocellular for age with 10% cellularity. Nutritional work-up as noted above. No vitamine deficiencies noted. Dr. Supa Lindquist may plan to repeat bone marrow biopsy prior to further active therapy for known light chain myeloma. -- Of note patient had prior testing for ceruloplasmin that returned low at 17.5and she was placed on oral copper therapy [...] starting Teclistamab over 1 year ago. We willdefer further bone marrow biopsies unless uptrending myeloma markers or worsening cytopenias. Stable bone disease from myeloma on PET/CT 09/21/2024--No indication to repeat her marrow at this time. 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 I previously reviewed her outpatient records from [facility], including review of notes, laboratories, and prior bone marrow biopsy 13 years ago. 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 Most recent platelet count is relatively stable at 54,000 but no clinical bleeding. She waspreviously referred to weight reduction clinic and may have slow improvement of steatohepatitis with lifestyle modification. Unless she has active bleeding or planned surgery, we will continue observation during treatment of active myelomato commence next month as noted above. --Agree with recommendation for EGD surveillance for varices (last was 09/2018--negative). This will be deferred during current COVID-19 epidemic. --Prior vitamin B12 and folic acid are normal, for known history of neuropathy. As noted above, I reviewed the negative M spike on serum protein electrophoresiswith immunofixation, but positive for Bence Murray protein on urine protein electrophoresis. Her Quantitative immunoglobulins IgG, IgA, and I gM were all within normal limits, however her serum kappa lambda light chain analysis showeda predominance of lambda light chains. --Previous labs for lupus anticoagulant with DRVVT, hexagonal phase phospholipid, anti-cardiolipin IgG and IgA, and beta 2 glycoprotein IgG and IgA were within normal limits. --Evaluated in ED November 2019 for epistaxis which resolved. Platelet count wasstable at 12/28/2019 follow-up. She continues surveillance with liver clinic at [facility] and I will continue to follow her every 6 months, sooner if newbleeding issues arise. Review prior extensive notes regardingplatelet counts during active myeloma therapy. -- 03/11/2023: Platelets have now declined to 28,000. She had increased bruisingaround the site of her bone marrow biopsy [...] Dr. Supa Lindquist for further therapy at [facility] as noted above. -- 10/21/2023: Platelet count has remained in the 35-40,000 range since startingTeclistamab for multiple myeloma. Continue follow-up with Dr. Supa Lindquist for further therapy at [facility]. --01/21/2024, 06/29/2024, 10/05/2024, 11/16/2024: Most recent platelets responding in 50-60,000s range.She has now completed over 1 year of Teclistamab therapy and will continue injections locally. -- 12/29/2024: Platelet count 62,000 but need to recheck next Thursday to determine if she needs platelet transfusion for hepatic ablation procedure at [facility]. Ez's. Transfuse if platelets less than 50,000. --02/03/2025, 03/16/2025: Current platelets 45-55,000 without bleeding after hepatic ablation. In January we delayed Teclistamab one week due to planned vacation. Continue same dose of Teclistamab if ANC >500 and platelets >25,000. (11) Cancer-related pain: Plan: Improved symptoms after palliative radiation to bilateral hips--one dose 02/07/2020, radiation to right hip -09/2021. Will continue to follow on myelomachemotherapy. Extensive, but stable bone involvement on F-18 PET/CT 12/2020 and 04/2021. Recent increased left neck and shoulder pain. Increased oxyco done dosing to three times daily, no unusual right hip pain is noted above--followed by palliative medicine. -Completed right hip radiation with persistent but improved pain--no new pain issues with follow-upvisit with radiation in early March 2022, follow-up [...] 09/15/2024: Seen by palliative medicine. Continues gabapentin 400mg twice daily with oxycodone 10 mg 4 times daily. No progression of disease onrestaging whole-body PET/CT reviewed withpatient from 09/21/2024. -- 12/29/2024: Recent increased pain from hemorrhoids. Adding topical lidocaine and Anusol suppository. colorectal surgery consult noting patient is not a surgical candidate due to chronic thrombocytopenia. May use opioids as needed and review with palliative medicine. Currently stable symptoms. --02/03/2025, 03/16/2025: Palliative medicine followup today--continue compounded lidocaine/steroids from . (12) Encounter for coordination of complex care: Plan: Discussion with primary oncologist at [facility]. Coordination of workup for chronic cough. Review of outside records--transition of Teclistamab and IVIG therapy to [facility] orders reviewed with [facility] 10/05/2024: New liver lesion on ultrasound coordinating MRI liver with [facility] GI. 11/16/2024: Coordinating evaluation by interventional radiology and colorectalsurgery for furtherevaluation of HCC and complicated hemorrhoids respectively. 12/29/2024: Coordinating platelet transfusion as needed before hepatic microwave ablation by interventional radiology at [facility], orders for irondeficiency anemia, ongoing Teclistamab and IVIG therapy for multiple myeloma 02/03/2025, 03/16/2025: Review Teclistamab therapy for myeloma, symptoms one monthafter hepatic microwave ablation by Interventional radiology, f/u hemorrhoids, f/u iron infusions after Venofer, f/u IVIG infusions for hypogammaglobulinemia. -- Diazepam order in 3 weeks prior to MRI for restaging of hepatocellular carcinoma, AFP and quantitative immunoglobulins pending. Orders: Orders MR abdomen wo/w con 1 Month C22.0 - Liver cell carcinoma Patient Instructions: Follow up with Dr Marinelli in one month after Abd MRI. Proceed with treatment regimen and labs CHEMO PLAN Treatment Plan Teclistamab Outpatient Maintenance Q28D Clinical Indication No Indication Cycle Number Last Admin 13 of 18 Completed Cycle Day Next Admin No Active Chemotherapy More Active Plan(s) Found History of Present Illness HPI 03/16/2025: Mojgan is here for 6-week follow-up on Teclistamab and status post microwave ablation of right lower lobe hepatocellular carcinoma at [facility] 01/05/2025. Since last visit she visited urgent care on Thursday with symptoms of UTI and was placed on antibiotics. She was able to travel to [place] and had no complications while she was there. Hemorrhoidal pain is stable and she follows up with palliative medicine today. Otherwise notes that she is feeling stable with some improvement of energy since Venofer infusions. She is tolerating Teclistamab well. No abdominal pain or distention. Platelet count remains in the 40-50,000 range without active bleeding. Liver function tests are relatively stable. Quantitative immunoglobulins were drawn and are still pending at the time of this appointment. Will continue Teclistamab and IVIG. Planned liver MRI in early to mid April for restaging of her hepatocellular carcinoma after prior hepatic ablation. She will return to review results in about 1 month. This is a high complexity 45-minute follow-up on Teclistamab,IVIG, thrombocytopenia due to KAPADIA, follow-up HCC liver directed therapy. 02/03/2025: Mojgan was rescheduled today due to pain from hemorrhoids for which she was too uncomfortable to come in for appointment scheduled yesterday afternoon. I requested her to schedule in person visit today as this is the first follow-up since she underwent a microwave ablation of right liverlobe hepatocellular carcinoma at [facility] on 01/05/2025. Her last Teclistamab dose was 01/19/2025 with subsequent labs 01/30/2025 showing white blood cell count 2400, ANC 900, hemoglobin improved to 11.4, platelet count slightly lower at 49,000 without bleeding issues. She received Venofer last month with improvement of iron saturation from 7.8 to now 33.7 and ferritin from9.9 to now 674.Liver function test showed normal total bilirubin, normal ALT and AST, but mildly elevated alkalinephosphatase around the time of teclistimabdose. She has planned trip, leaving next Thursday for one week. OK to hold next dose of Teclistamab one additional week (which also should help with mild worsening of neutropenia and thrombocytopenia). --She was previously evaluated by Dr. Schneider for her hemorrhoids and was not deemed a surgical candidate. She was prescribed a compounded steroid and anesthetic topical medication which is effectivefor hemorrhoids and compounded by pharmacy. Followup MRI due in 3 months after ablation (mid April 2025). Next f/u with me mid March with myeloma labs (CBC, CMP, quantitative immunoglobulins and kappa/lambda light chain analysis) to assess symptoms and response--will correlate with treatment day. High complexity 45 minute followupto review prior colorectal surgery eval for hemorrhoids, review hepatic ablationfor hepatocellular carcinoma, followup pancytopenia due to cirrhosis and active myelomaon bispecific antibody therapy. 12/29/2024: Mojgan is here for follow-up of several issues. She was originally scheduled yesterday but felt ill with headache and severe bilateral leg pains which today are improved today. She was seen by colorectal surgery SALES DEVELOPMENT REPRESENTATIVE at [facility] 11/28/2024 due to uncontrolled hemorrhoidal bleeding. Anoscopy was performed showing small circumferential external hemorrhoids that were tender butno active bleeding. Due to her thrombocytopenia she was not felt to be a candidate for surgery but was advised to use compounded hydrocortisone suppositories with lidocaine which have improved her symptoms. She had a virtual consult with Dr. Aguila of interventional radiology at [facility] to prepare for biopsy and microwave ablation of 2.6 centimeter right hepatic lobe liver lesion consistent with HCC. This has been scheduled for 01/05/2025 but he has requested checking platelets and performing transfusion if needed for platelet count less than 50,000. Platelet count on labs today is 62,000 but we will repeat CBC Thursday of next week and will transfuse if platelet count dips below 50,000. Otherwise blood counts are stable with hemoglobin 9.4, white blood cell count 2000 with absolute neutrophil count 900. I sent serum iron profile and ferritin due to her leg cramping which shows loweriron saturation 7.8% and ferritin 9.9 consistent with iron deficiency anemia. We will coordinate iron infusions if consistent with iron deficiency. Magnesiumis also low normal and she can have supplemental magnesium oxide 400 mg daily. Laboratories are pending for quantitative immunoglobulins and kappa/lambda lightchain analysis. We will continue Teclistamab-cqyv at current dosing with next follow-up in 6 weeks with nurse practitioner with CBC, CMP, magnesium, serum iron profile, and ferritin. Jayne review the results of her liver ablation and I will see her in 3 months for restaging liver MRI, AFP, and myeloma labs. High complexity 45-minute follow-up for coordination of care (G2212) to arrange transfusions for upcoming procedure and to address iron deficiency anemia. 11/16/2024: I was contacted by Dr. Sanchez of gastroenterology last week to report liver MRI showing segment 7 lesion measuring 2.5 x 1.8 cm concerning for hepatocellular carcinoma. Otherwise she is tolerating her Teclistamab-cqyv wellwith stable labs, platelet count up to 51,000 and blood cell count 2200 with [id number]. Interestingly this lesion was not seen on PET/CT 09/21/2024. We sent an alpha-fetoprotein in September 2024 which returned within normal limits at 4.4. I reviewed the images with the patient and her daughters today with [facility] be [facility] with embolization or radiofrequency ablation. In addition she was seen by Dr. Pillai for her hemorrhoids which have been troubling to her for the last year. She notes worsening of her perianal pain and extrusion of hemorrhoids but Dr. iPllai feels she is too high risk to have surgery here. I recommended local therapy with Anusol (hydrocortisone) suppositories once or twice daily and topical lidocaine for symptom control. I will refer her to c olorectal surgery at to determine if she could be treated with a locally ablative procedure for the hemorrhoids as well. Myeloma labs were not performed with her labs today. I will coordinate follow-up with her after her [facility] evaluations and routinely send myeloma labs with CBC, CMP, SPEP with VAHID, quantitative immunoglobulins, and kappa/lambda light chain analysis in 3 months or sooner as needed. High complexity 45-minute visitto review liver MRI, coordinate tertiary care evaluations for interventional radiology for new suspected hepatocellular carcinoma and tertiary referral for refractory hemorrhoid evaluation. 10/05/2024: Mojgan is here for follow-up after transferring care for infusions of Teclistamab-cqyv from [facility] to [facility]. She has no new or concerning toxicities. Her current dose of Teclistamab is 1.5 mg/kg every 3 weeks (123 mg). She has relatively stable leukopenia 2400 with absolute neutrophil count 800. Normal renal function and electrolytes, total protein 5.9, Her most recent quantitative immunoglobulins show IgG is up to 594 and she does not criteria for IVIG (defer until less than 400). Stable pain control on current regimen followedby palliative medicine. She did have a liver ultrasound ordered by Dr. Sanchez of and was noted to have a hyperechoic lesion in the right lobe measuring 2.8 x 1.9 x 1.8 cm with recommended liver MRI that has been ordered for later this month. PET/CT whole- body NaF on 09/21/2024 showed diffuse patchy abnormal radiotracer uptake in the skeletal structures similar to comparison PET/CT from 03/09/2023. This is consistent with diffuse marrow infiltrative changes and known history of multiple myeloma. Otherwise physiologic uptake in other organs. At this time we will continue Teclistamab-cqyv at current dosing with next follow-up in 6 weeks with myeloma labs (CBC, CMP, and quantitative immunoglobulins only--since kappa/lambda light chains are undetectable defer to every 3-month testing). High complexity 45-minute follow-up to review PET/CT, recent liver ultrasound, laboratories for myeloma, and tolerance of Teclistamab-cqyv therapy. 09/15/2024: Mojgan is here for 3-month follow-up to transfer therapy with Teclistamab-cqyv BiTE therapy for refractory myeloma to our facility. She has been on Teclistamab-cqyv subcu 25 mg once every 3 weeks, most recent doses 0.6 mg/kg (49 mg) and subsequent dose escalation to 1.4 (117mg). According to most recent note from TONYA Perkins, she received cycle 9-day 21 Teclistamab (117mg)that daywith recommended transition to [facility] for ongoing doses and IVIG for IgGlevel less than 400. Recommended for seasonal influenza, updated COVID, and RSV vaccines. She has persistent thrombocytopeniathat has not significantly changed and leukopenia with absolute [id number]. No recent infections or bleeding issues. She was seen by Dr. Garcia Sanchez at yesterday and has scheduled follow-up for lab tests within the next month. Stable blood sugar control and stable pain with no evidence of progression on most recent myeloma labs at [facility] (09/06/2024: IgG 312, IgA less than 7, IgM less than 5, IgG kappa free light chain 0.08, IgG lambda 0.17, no detectable M spike but decrease in polyclonal gammaglobulins on protein electrophoresis.). We reviewed and signed informed consent for Teclistamab-cqyv and will plan first infusion for every 3-week d osing with IVIG every 4 to 6 weeks depending on her IgG level (most recent IgG was less than 400therefore she meets criteria for IVIG infusion with IgG less than 400). We willcoordinate follow-up cycle 1 week 2 to review any toxicities of therapy. High complexity 45 minutes [id number] with additional 30 minutes preparation of orders and review of outside laboratories and documentation of Teclistamab therapy at [facility]. 06/29/2024: Mojgan is here for over 5-month follow-up while concurrently following with [facility] malignant hematology for Teclistamab BiTE therapy for refractory myeloma. I have reviewed extensive records from her primary treating oncologist Dr. López and she started on Teclistamab-cqyv subcu 25 mcg once every 3 weeks with dose modification 0.03 mg/kg dose 1 on 08/06/2023, then dose changed to 0.06 mg/kg (49 mg) for subsequent doses. She isalso receiving IVIG 20 g about once every 4 to 6 weeks. With hydrocortisone injections 100 mg each IVIG infusion. Most recent Teclistamab dose was given 06/14/2024 and next is due next Thursday. --Since last visit with me she was hospitalized at [facility] 04/10-04/19/2024 for sepsis, septic shock, and bacteremia due to Enterobacter from spontaneous bacterial peritonitis.She was treated with IV antibiotics cefepime over 2 weeks monitored by ICU team, then transition to outpatient infectious disease follow-up. She developed paroxysmal atrial fibrillation and follows with cardiology at [facility]. She has followed with hepatology at [facility] and recently was seen by Dr. Garcia Sanchez locally. Following her admission for sepsis she developed bacterial pneumonia and received antibiotics in May and more recently nasal steroids and oral steroids tres exacerbation, followed by Dr. Raymundo here locally 2 days ago. She stopped Ozempic for diabetes and is maintained on metformin with stable glucose control. Stable hip and leg pain with ambulation. Ireviewed her laboratories from [facility] showing undetectable kappa and lambda light chains, mild hypogammaglobulinemia of IgG with undetectable IgM and IgA. Her last whole- body PET/CT was in March 2023 therefore I will order whole-body PET/CT and review results with Dr. López. We will investigate whether she can transition her care with Teclistamab BiTE and IVIG infusions to [facility] for the winter due to travel issues but we need to ensure that pharmacy can provide this medication that is covered by insurance locally. If she continues Teclistamab BiTE/IVIG at [facility] for thewinter, I will see her in follow-up in 6 months since we have outside records. This is a high complexity 45-minute follow-up visit to review current managementwith tertiary care [facility] malignant hematology, local GI, pulmonary medicine, and palliative medicine records. Coordination of PET/CT. Additional care complexity code G2212 to investigate transition of care locally. 01/22/2024: Mojgan is here for 3-month follow-up while concurrently following with [facility] malignant hematology for Teclistamab BiTE therapy for refractory myeloma. She continues to notesome injection site reactions with erythema. Her greatest concern recently has been a persistent cough that does not seem to improve with any antibiotic therapies. She is no longer on any antifungal prophylaxis due to potential interaction with her Teclistamab therapy. She does not have any evidence of thrush but notes some chronic nauseaand mild difficulty swallowing. Her most recent note available for review from [facility] is from 11/18/2019 for discharge summary. She was there foradmission for ramp-up dosing of her second dose of Teclistamab. During that admission she reported feeling well and endorsed chronic leg pain, opioid induced constipation, headache and minimal residual cough with clear to yellow sputum . She reports that this cough has persisted and recent chest x-rays on and 01/20 do not show any significant infiltrates. She previously had aCT angiogram to exclude pulmonary embolism where she was noted to have a mild dependent airspace opacity in the right posterior costophrenic sulcus but no other infiltrates. She reports that she received IVIG last week at [facility] which has been continued monthly. --Following her visit today, I contacted her primary oncologist at Dr. Spears. He notes thather Teclistamab has been on hold for infusion reactions and recent symptoms. Platelets are mildly improved to 50,000 from prior 20,000 range without bleeding. He notes there is no interaction of azole therapy with Teclistamab. He also denies fungal workup for cough. I contacted Dr. Miller whorecommended urine studies for histoplasma urine testing, crytptococcus antigen (serum), and sputum culture for fungal isolates. We will refer for pulmonary medicine referral for possible bronchoscopy. I willsend CT sinuses and chest and arrange virtual visit for results and further plan for followup. High complexity 45 minute f/u (eval patient, discussion with Dr. Spears). 10/21/2023: Mojgan is here for 3-month follow-up of multiple myeloma, severe thrombocytopenia, andhypogammaglobulinemia. I reviewed in detail her current treatment course with Dr. Spears at [facility] hematology both through review of recent visit 10/06/2023 and personal com munication by phone today. 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 Second dose of Teclistamab weekly (08/17, 08/25, 09/01, 09/08) with changing threshold notification for platelets less than 35. She has not had any bleeding complications due to thrombocytopenia. She was scheduled for third cycle of weekly Teclistamab beginning 09/15/2023 but this was held due to positive COVID-19 infection on 09/12/2023. She was treated with Paxlovid in [place] and has not resumed therapy since that time. About 1 week ago she was to receive the delayed third cycle but this was held due to active sinus infection. She was treated with oral antibiotics and is completing a steroid taper (3 days left). She is also due for IVIG which we will coordinate locally 0.4 mg/kg IV as well as refill for her Bactrim DS Thursday and Thursday for pneumocystis prophylaxis. We had originally discussed potentially transitioning to Teclistamab in [place] but we are not an approved site for this by specific antibody therapy. Dr. Gross notes that he will readmit Mojgan on 11/04/2023 for next cycle of Teclistamab since there has been a 6-week delay since her last dose and she may have recurrent CRS. I will continue to follow herevery 3 months or sooner as needed and we can coordinate her local IVIG scores between her to closeto Mab dosing. This is a high complexity 1 hour visit for history and physical, lab review, review of current management [facility], and personal communication with her treating oncologist. 07/08/2023: Mojgan had her virtual consultation with Dr. Lindquist of [facility] malignanthematology on 06/26/2023. He had discussed treatment optionswith her given her worsening cytopenias and generalized pain and fatigue. Possible by specific monoclonal antibody therapy versus CAR-T therapy. He also remarked that her prior bone marrow biopsy may have underestimated the degree ofher myeloma since it may have been performed at the site of prior radiation. [facility] to evaluate her in person and potentially consent her for 1 of these therapy options. I did informthe patient that she may require repeat bone marrow biopsy at that time. Amando e arecontinuing to hold her active therapy with Kyprolis and Cytoxan due to persistent cytopenias, most recently her white blood cell count is 1600, absolute neutrophil count 800, platelet count 26,000. Although she does have extremity bruising she does not have any concerning bleeding from any orifice and has not had any active infection. She will follow-up with me tentatively in3 months with CBC, CMP, and myeloma labs transfer her care to Dr. Lindquist forfurther therapy at [facility]. It is possible that if she tolerates antibody treatment well that we may be able to transfer her therapy her low 35- minute follow-up for coordination of care with [facility]. 06/10/2023: Mojgan is unaccompanied today--scheduled to see Dr. Lindquist tomorrow but she noted a family emergency and feels she cannot travel there tomorrow. I contacted him and he agrees to changeto a virtual visit. Increased bruising but no epistaxis, mucosal bleeding, or bright red blood per rectum. No worsening of bone pain or baseline neuropathy. Platelets remain low30,000 to high 20,000 range. WBC 1700 with ANC about 1000. Uptrending lambda light chain now to 241. I asked Dr. Lindquist to evaluate for potential bispecific antibody therapy or CAR-T option for myeloma. I will continueto hold therapy for another month (last Kyprolis/Cytoxan given 6 months ago) and will f/u around 4-6 weeks to review recommendations from Dr. Lindquist and f/u myeloma labs. Moderate complexity 30 minute f/u. 03/11/2023: Mojgan is here for follow-up of bone marrow aspiration and biopsy performed in interventional radiology on 02/24/2023 as well as follow-up F-18 PET/CT. She has continued right hip pain andsaw nurse practitioner Pearl Holder the day after her bone marrow biopsy. She started oxycodone 10 mg 4 times daily as needed with continued gabapentin 400 mg on an as-needed basis. She previously received radiation to the right hip in July-August 2021 over 15 elapsed days--I am reluctant to repeat radiation to this area unless pain is refractory to oral medications. The PET/CT from 03/09/2023 showed relatively patchy abnormal radiotracer accumulation in the skeletal structures that similarto prior exam consistent with her multiple myeloma but no new areasof radiotracer accumulation. Theright hip uptake looks relatively stable from prior PET/CT in March 2022. The bone marrow aspirate and biopsy showed low cellularity for age about 10% with 4% clonal plasma cells by immuno chemistry and 0.7% of lambda mononuclear plasma cells on flow cytometry with a population of atypical CD10 positive B cells. She had presence of stainable iron stores 1+and no evidence of amyloid deposition. Her peripheral blood platelet count is now 28,000 and she does not have any active bleeding. She did have extensive bruising after her bone marrow biopsy. She has not had any recent infections and received 1 treatment with IVIG in early January. -- At this time I recommend holding active therapy for her myeloma given her cytopenias and plasma cells less than 10%. We will continue to follow CBC every2 weeks for her platelet count this month and if relatively stable continue CBC monthly. I will also send vitamin B12, folate, copper, ceruloplasmin, and iron panel to see if we can optimize her from a nutritional standpoint to improve herthrombocytopenia. This may also be due to her hepatic steatosis. Her next follow-up with me with myelomalabs to include quantitative immunoglobulins and kappa/lambda light chain analysis will be in 3 months or sooner as needed. Thisis a high complexity visit over 45 minutes for review of bone marrow biopsy and imaging results, discussion of continuing to hold further therapy (Kyprolis/Cytoxan last given December 2022), and plan nutritional labs with follow-up phone call with results. 02/18/2023: One month followup--still off active therapy with Kyprolis/Cytoxan past 2 1/2 months dueto persistent thrombocytopenia and initiation of IVIG for admission for urosepsis 01/28/2023. Despite off therapy, she has persistent low platelets 35,000 without bleeding. Uptrending kappa light chain to 60s. Notes recurrent right hip pain--I recommended repeating F-18 PET/CT to determine if bony progression with right hip/pelvis/femur film. Will also set up IR guided bone marrow biopsy--review results in 3 weeks and decide whether to resume active therapy. If lytic lesion at hip/acetabulum/femur concerning for potential fracture, will refer to orthopedics for possible prophylactic kenton. Mak contact from Dr. Benavidez for bispecific antibody therapy. Moderate complexity 35 minute followup. 01/09/2023: Here for followup after consult with Dr. Benavidez last week. Progress note is still pending, but we communicated by secure text regarding her evaluation. Myeloma labs are stable with mild increase of serum kappa from 40s to 60s range. Platelet count now to 68 and ANC 900 since holding Kyprol is/Cytoxan since 12/05/2022 for cytopenias. We decided to hold 2 more weeksthen resume Kyprolis at same dose 20mg/m2 and further decrease Cytoxan to 40% dose overall when we resume dose. Next line of therapy at progression may be CD3/BCMA myeloma bispecific antibody Teclistamab (needs to be hospitalized firstweek due to risk of cytokine release syndrome). Plan to resume likely in 2 weeks if adequate blood counts and no infection. F/u with myeloma labs (CBC, CMP, quant immunoglobulins and kappa/lambda light chains) in 2 months, sooner prn. Moderate complexity 30 minute followup. 12/26/2022: Mojgan continues to have nasal drainage sinus congestion and pain despite completing 2 weeks of amoxicillin and no air-fluid level on CT Sinuses 11/30/2022. We gave last dose of Kyprolis/Cytoxan (60% dose) on 12/05/2022. Peripheral neuropathy is stable, no diarrhea, no skin rashes. We reviewed her labs with ANC 900, platelets 37,000 and she notes easy bruising but no nasal/oral mucosal, GI or bleeding. I will again hold Kyprolis/Cytoxan another 2 weeks and give 2 weeks of Augmentin 875/125mg bid for her persistent sinus infection and Diflucan 100mg daily for vaginal candidiasis. Will formallyrefer back to Dr. Benavidez to see if she is a candidate for the CD3/BCMA myeloma bispecificantibody therapy which she would need to receive at [facility]. F/u with me in 2 weeks--if persistent cytopenias we may need torepeat her bone marrow biopsy (if now performed by Dr. Benavidez). She agrees with this plan over this 35 min moderate complexity followup visit. 11/26/2022: Mojgan is here for monthly followup on modified CYKLONE therapy. Notes increased frontal headaches over the past with with nasal congestion--sending for sinus CT and 2 week course of Augmentin bid. Platelet count recently dropped as low as 25-31,000 without bleeding (currently 40,000), WBC to 1300 with ANC 700. No current fever, chills or symptoms of infection. Prior dose reductions of Kyprolis to 20mg/m2 weekly with cyclophosphamide 240mg/m2 weekly). Echo with normal EF 55-60%. We will further dose reduce cyclophosphamide to 180mg/m2 (overall 40% dose reduction) and maintain Kyprolis at 20mg/m2. She has ongoing decline of lambda light chains over the past 6 months indicating response. I discussed her case with Dr. Piter Benavidez who notedtherapy could be held if worsening cytopenias. For now continue monthly followup with myeloma labs (quant immunoglobulins and kappa/lambda light chains). Bleeding precautions and f/u sooner if new symptoms arise. Moderate complexity 35-minute visit for review of complex labs and adjustment of chemotherapy regimen. 10/29/2022: I asked Mojgan to return today due to cytopenias on labs and discussion of either dosereduction or changing therapy. She notes that over the last 2 weeks she has had cough, body aches, worsening fatigue, but no fever. She was diagnosed with a non-COVID viral syndrome. Her symptoms arestarting to get better but she has more significant cytopenias with absolute neutrophil count of only 400 with total white blood cell count 1000. In addition her platelet count is 31,000 she has not had any active bleeding issues. We were unable to contact her to tell her not to come in for chemo but I decided to see her today since she was last evaluated by nurse practitioner last 2 visits. Hermyeloma labs show relatively stable lambda light chains which appear to have responded since start oftherapy in July. She is due for her echocardiogram and due to her cytopenias we will hold therapy today and plan 1 level dose reductions of both cyclophosphamide (from 300 to 240 mg/m2 IV weekly)with Kyprolis dose reduction (from 27 to 20mg/m2 IV weekly). She has been off therapy past 2 weeks due to cytopenias. If she is unable to resume therapy we may consider an alternate therapy such as Blenrep. She is otherwise in agreement with current plan of care. Moderate complexity 35-minute visitfor review of complex labs and adjustment of chemotherapy regimen. 10/15/2022: Mojgan is here for follow-up for her multiple myeloma on modified CYKLONE therapy. Shecontinues to do well and remains active at home. She deniesshortness of breath, chest pain, nausea,vomiting, diarrhea or constipation. Sheis eating and drinking well. No fevers, chills, sweats, bleed ing or rash. She does note mild tongue soreness and on exam it appears she may be developing thrush, very mild currently on the tongue only. We will prescribe nystatin for this. Labs are reviewed andstable overall, ok for treatment. She will follow-upin 4wks with Dr. Marinelli with repeat labs and treatment. 09/17/2022: Mojgan is here for follow-up on modified CYKLONE therapy for her multiple myeloma. Shecontinues with fatigue, but otherwise no new complaints. She has no s/s of infection, no shortness of breath, chest pain, n/v/d or other concerns. In review of her labs, her WBC are 1.4, ANC 0.6 and platelets 43,000. Per Dr. Marinelli, given no s/s of infection and she otherwise feels well, she is okfor treatment. We discussed signs to report related to infection such as fever, chills, etc. and she will call with any concerns. We will follow-up in 3wks withrepeat labs. 08/20/2022: Mojgan is here for 3-week follow-up on modified CYKLONE therapy (cyclophosphamide 300 mg/m2 IV weekly, dexamethasone 20 mg IV weekly, and carfilzomib now 56 mg/m2 IV weekly). Baseline echocardiogram 07/18/2022 showed normal ejection fraction 60 to 65%. I discussed her case with Dr. Benavidez who advised that despite her significant thrombocytopenia she should be treated withfull dose cyclophosphamide/carfilzomib and may support with transfusions as needed. The patient's lowest platelet counts were in the 30,000's after her first week of therapy but now is up to 56,000. She has not hadany clinical bleeding. She also has persistent leukopenia 1900 today with absolute neutrophil countnow 1000. At this point as long as she does not have any significant symptoms of therapy or signs of infection or active bleeding we willcontinue her current dosing. She otherwise notes mild fatigue but no other toxicities. Prior skin rash on Pomalyst has resolved. She will follow-up in 3 weeks fortoxicity check with nurse practitioner and we will order her restagingmyeloma labs with serum protein electrophoresis with immunofixation, quantitative immunoglobulins, and kappa/lambda light chain ratio. She may return sooner if new issues arise. Moderate complexity follow-up over 30 minutes to address cytopenias on CYKLONE therapy. 07/10/2022: Mojgan is here for 2-month follow-up of myeloma labs. No changes in medical history and platelet count remains in the 40-50,000 range without bleeding. We held her Pomalyst (as well as daratumumab) this week due to absolute neutrophil count of 300 without any recent infections. She previously held it for 1 week due to neutropenia, took 1 tablet, then had to hold a second week due to neutropenia. We reviewed her kappa/lambda light chain ratio which continues to progress in the wrong direction (total lambda light chains now increased from 109 to 125.7 with ratio from 0.11 to 0.08). Her progressive cytopenias and worsening light chains likely reflects progression of myeloma. We could repeat her bone marrow biopsy but her most recent bone marrow biopsy on10/09/2021 showed hypercellular bone marrow (30%) with slight megakaryocytic and granulocytic hyperplasia and only 1.5% plasma cells (Lambda restricted by flow cytometry). This likely would not change her current management and I discussedher case with Dr. Benavidez of malignant hematology who recommended considering carfilzomib (Kyprolis) with cyclophosphamide. I will contact patient to coordinate baseline echocardiogram forKyprolis and likely she will require dosereductions for her underlying hepatic dysfunction and chronic cytopenias. AfterI reviewed dosing with Dr. Benavidez and pharmacy and review her echocardiogram, paulwill coordinate follow-up for change in therapy and chemotherapy consent. For now we will continue daratumumab with altered dose of Pomalyst to 2 mg twice weekly ( and Mondays) until change in therapy. I will not likely send dose reduction of Pomalyst due to planned change in therapy. Moderate complexity 35 minutes for coordination of care. 05/07/2022: Improved rash on 2 mg of Pomalyst, now mild pruritus. Platelet count is 48,000 without bleeding issues. Continues weekly prednisone. Daratumumab isnow monthly since early April. Repeat kappa/lambda light chain ratio slightly higher (106 to 109) But the upward trend is starting to flatten out. F-18 Axumin PET/CT shows no new lesions, relatively stable from 1 year ago. For now given her stable symptoms and pronounced cytopenias, we will continue her current dosing daratumumab/Pomalyst/dexamethasone. Next follow-up with me in 2 months. She will return sooner for issues arise. Moderate complexity visit over 35 minutes. 04/09/2022: Mojgan continues every 2-week durvalumab with Pomalyst now 2 mg daily (dose reduced due to diffuse rash). She is now day 14 of the cycle and isnoted to have platelet count of 40,000 (no associated mucosal bleeding, bright red blood per rectum, or hematuria). No recurrent rash on this dose. She continues her weekly prednisone. I recommended changing her schedule of Pomalyst to 2 mg daily for days 1 through 14, off days 15 through 28 cycle and continuing daratumumab. Her most recent immunoglobulins have shown a steady trend upward for lambda light chain and decrease of kappa/lambda light chain ratio, however since she is now stabilizing her dosing of daratumumab/Pomalyst/dexamethasone I recommend continuing her current dosing for1 more cycle with repeat kappa/lambda light chain ratio in another month. In addition I will set her up for F-18 Axumin PET/CT to compare to PET/CT from 1 year ago (her skeletal survey showed no lesions 6 months ago). She denies any current bone pain.She will proceed with daratumumab dose as previously orderedtoday. 03/19/2022: Mojgan is here for follow-up after adverse cutaneous reaction to her first cycle of Pomalyst. She noted that after starting her first dose of Pomalyst 3 mg daily on 03/05/2022 that about 1 week later on 03/13/2022 she had a diffuse rash all over that was pruritic with increased erythema. She did not have nausea, vomiting, constipation, diarrhea, dyspnea, or any other adverse reactions. She did have a decline of platelet count to 41,000 this week which may be due to her Pomalyst. She called the pharmacy and was instructed to discontinue Pomalyst on 03/13/2022. Her rash has mostly resolved with no furtherpruritus but she still has a few macular lesions over the legs. She has been using Benadryl and topical cortisone cream with improvement of the rash. Otherwise her laboratories are stable. She does have an increased kappa/lambda light chain ratio from 03/05/2022 but this was her first day of therapy. I recommended resuming Pomalyst at next dose level 2 mg daily as soon as new medic ation arrives for 3 weeks on 1 week off. If she has recurrent rash she will again stop and we will consider further dose adjustment. Due to her thrombocytopenia we will hold her daratumumab today andconsume with first day of Pomalyst next week. She may follow-up in about 3 to 4 weeks, possibly with virologist covering at that time. Patient expressed understanding. 02/19/2022: Mojgan is here for follow-up--no new symptoms but her platelet countdropped to 48,000 last week and we are again holding her Revlimid. She has not had any bleeding or infection recently, but she has had uptrending lambda light chains and we discussed changing her therapy from lenalidomide to pomalidomide and continuing her daratumumab which is currently every other week. Her only other concern is constipation which is likely related to her pain medications. ANC was 800 today. --Today we reviewed chemotherapy counseling for lenalidomide in combination withdaratumumab/dexamethasone (stopping Revlimid). Common toxicities were reviewed to include allergic reactions, myelosuppression, thrombosis, fatigue, nausea, vomiting, constipation, diarrhea, mouth sores, and risk of secondary malignancies. Other toxicities may include pneumonitis, neurologic, hepatic andrenal toxicities. The patient signed informed consent and will follow-up as directed. Planning a trip to [place] on March 06, therefore we will hold Revlimid until arrival of her pomalidomide, then have oral chemotherapy visit. We are starting pomalidomide at 3 mg daily days 1 through 21 every 28 days due to baseline liver dysfunction. Follow-up cycle 1 week 2. We will recheck her baseline myeloma labs on start day of pomalidomide with daratumumab. 01/22/2022: Mojgan has no new complaints. She was seen by Dr. Benavidez at for evaluation for transplant and CAR-T options but given her profound thrombocytopenia, neither of these options are felt tuyet optimal for her. She has had gradual worsening of her lambda light chains without any change of r enalfunction or hypercalcemia. Her chronic thrombocytopenia has remained in the 40-50,000 range which is lower than her prior baseline. I reviewed her options with Dr. Benavidez and it is difficult to assess best options due to her chronic thrombocytopenia but standard of care at this point would be tocontinue her daratumumab and transition from the lenalidomide to pomalidomide. We will follow closely with weekly CBCs to determine if thrombocytopenia worsens on thisregimen. I will defer changing her regimen for 1 month since she is starting a new cycle of lenalidomide and has had slow progression of her lambda light chains. She will return in 1 month and will discuss pomalidomide and signed inf ormed consent. Patient is in agreement with this plan. 12/18/2021: Mojgan is here for 3-month follow-up. She has not had any significant changes in medical history other than testing positive for coronavirus infection in early November 2021. She has not been immunized for coronavirus. She notes persistent fatigue but no bone pain. No other recent infections or bleeding episodes. She recently changed from weekly to now every 2 weeks daratumumab 16 mg/kg and remains on low-dose lenalidomide 5 mg daily for2 weeks on 1 week off due to prior thrombocytopenia worsening. October 2021 skeletal survey showed no osteolytic lesions suggestive of myeloma. Initially she had improvement of her platelets to 70-100,000 but today platelets are down to 54,000. She also had some improvement of leukopenia but this is again down to 2800 with ANC 1300 today. Urinerandom M spike is not observed, but she has had progressive increase of her lambda light chains from 30 in December 2020 to 60.2 in October 2021. [place] lambda ratio has also started to decline to 0.21 in October 2021. For now I'm continuing her daratumumab with Revlimid at current dosing, but I contacted Dr. Benavidez at [facility] for CAR-T celleligibility. If he has recommendations to change her therapy, I will let her know. Otherwise I will have her follow-up with me in 1 month (she will have repeat myeloma labs 1 week prior to visit). 09/20/2021: After telephone consultation with Dr. Benavidez at , we resumed repeat loading doses of weekly daratumumab 16mg/kg and changed to low dose lenalidomide 5mg daily. She has had 2 courses of antibiotics for sinus infection over the past month and was noted to have neutropenia with ANC 900, platelets 44,000 week 2 of Revlimid, therefore this was held for one week and resumed Thursday after ANC returned to 1000. Platelet counts have persisted at 40-50,000 range without active bleeding. Otherwise tolerating therapy well. Still improved hip pain and ambulation after recent course of palliative radiation therapy. For now we will continue Daratumumab with Revlimid and Dexamethasone as ordered with weekly CBC. Gradually increasing lambda light chains--pending evaluation at for CAR-T celltherapy eligibility (has not yetbeen contacted for appointment). 4 week f/u with me with CBC, CMP, and myeloma labs (follow quant immunoglobulins and [place]/Lambda light chain ratio with skeletal survey in 2 weeks so results available for appointment). 08/30/2021: Mojgan is here for 2-week follow-up for completion of her palliative radiation therapywith significant improvement of pain in her right hip and pelvis. We sent her for echocardiogram performed 08/23/2021 at [facility] [place] as baseline for possible Kyprolis therapy. This returned with ejection fraction 60% which is normal with grade 1 left ventricular diastolic dysfunction and 1+ tricuspid valve regurgitation and trace to 1+ aortic valve regurgitation.Otherwise unremarkable. I discussed her case with Dr. Benavidez of malignant hematology at [facility]. He advised against Kyprolis therapy given her underlying liver dysfunction and recommended repeating loading doses of daratumumab weekly as well as low-dose lenalidomide which we will start at 5 mg daily since she has chronic thrombocytopenia. We will send for CAR-T therapy as a possible therapeutic option. The patient agreed with changing daratumumab to weekly and we will haveher sign consent next week for change to low-dose lenalidomide therapy. Next follow-up with me will be in about 2 weeks for week 2 lenalidomide with daratumumab. 08/16/2021: One month followup, she recently completed palliative radiation therapy to right hip and pelvis. Platelet count still in 50,000 range with increased bruising but no bleeding. Still has some pain in right hip but slowlyimproving after radiation therapy. Slowly worsening lambda light chain --she is scheduled for ECHO next week. We discussed possibly changing therapy from Daratumumab, Velcade, Dexamethasone to Kyprolis, low dose lenalidomide, dexamethasone if adequate cardiac function. I will discuss this with Dr. Benavidez for dosing and determine if CAR-T therapy is another possible option (although we may be limited due to chronic thrombocytopenia and liver disease). Followup 2-3 weeks to review results and possible consent for change in therapy. 07/17/2021: 2-month follow-up on multiple myeloma. She reports that Thursday she developed severe painin the right leg that started proximal to the knee creating it to the hip. She had increased pain with weightbearing on the right and has been using a walker at home secondary to this. She did not feel a pop or shift in ambulation, but has been using her Percocet for pain control at home. In reviewing her laboratories platelet count remains in the 52,000 range and she is otherwisPe tolerating daratumumab well. I recommended sending for right hip, femur, and knee plain film imaging that did not show any fracture. She does have a gradually rising lambda light chain but no other significant changes in her labs. I reviewed her case with Dr. Cheng of orthopedic surgery who also reviewed her prior PET/CT showing uptake in this area. We will obtain a right hip MRI, keep her completely nonweightbearing on the right leg with walker for transfers and she has an urgent orthopedic follow-up following her MRI. I will follow-up with her in 1 month to review management and we will determine if she requires prophylactic kenton for stability of the hip based on herMRI. 05/24/2021: Here to followup 05/03/2021 bone marrow biopsy--noted to have decreased cellularity 25%, flow cytometry with 0.2% plasma cells and a 1.5% monoclonal B- cell population. FISH showed 13q and 1qabnormalities but normal cytogenetics. No myelodysplasia seen. I reassured her that recent thrombocytopenia is more likely related to splenic sequestration from liver disease and not worsening myeloma. For now continue current regimen. Will alsorecheck B12, folate, and iron profile with next labs--followup in 2 months with myeloma labs, sooner prn. 04/24/2021: 1 month followup to review PET/CT. Over the past 2 days, she notes episodes of sharp left sided neck pain over sternocleidomastoid muscle and mastoid area. No radiculopathy down left upperextremity. No new side effects of Daratumumab. F18 PET/CT shows largely unchanged diffuse uptake through multiple bony sites in axial and articular skeleton. Lambda light chains risingover past 2 month and decline of platelet count to 57,000 without bleeding. MRIof thoracic spine did not show significant thoracic canal stenosis. Due to worsening neck pain with extensive uptake on F18 PET/CT--we will send for cervical MRI. Palliative medicine has increased Percocet to tid. We will repeat bone marrow biopsy due to rising lambda light chain and falling platelet count to determine if progression of myeloma noted. This will be scheduled in the next 1-2 weeks. 03/28/2021: 2 month followup for multiple myeloma. More recently notes neck andleft shoulder pain. Fatigue and constipation stable. Labs show stable anemia and thrombocytopenia. Serum M-spike now asymmetric gamma (no quantifiable spike). Slowly improving IgG to near normal. [place]/lambda light chain ratio normal with mildly increased lambda light chains. MRI of thoracic spine for evaluation of increasing left shoulder pain. For now we will continue current dosing of Daratumumab and recheck F18 PET/CT for response in late April 2021. 01/21/2021: Mojgan is accompanied by her daughter for 2 month followup--now Daratumumab maintenance. She notes persistent fatigue and recently added as needed laxatives to stool softener for management of constipation. Persistent left hand pain--correlates to an area of bone uptake on PET/CT. Overall F18 PET/CT appears stable with no new areas if FDG avidity (still extensive bone FDGuptake). We reviewed prior plain xrays of left hand from November--she agrees toevaluation by orthopedic surgery (determine if biopsy or steroid injections). M-spike and kappa/lambda light chains pending. CBC (platelets 60-70,000); CMP stable. Will followup in 2 months with exam and labs. 11/26/2020: Mojgan is accompanied by her daughter for 2 month followup--now Daratumumab maintenance. Stable leukopenia/low platelet 70,000. Notes 3 days of hematuria and mild dysuria. Sending UA and possible culture. Otherwise no new bone pain. Blood sugars stable. M-spike and kappa/lambda light chain ratiostable. Next f/u 2 months after one year f/u PET/CT to determine response to therapy. 09/24/2020: Mojgan presents (accompanied by her daughter) for cycle 8, week 2 followup [id number] mg/kg IV weekly, Dexamethasone 20mg weekly, and Velcade 0.7 mg/m? now sq once weekly for every 3-week cycle (21 days). She notes neuropathy symptoms are stable. Tolerating therapy well without fatigue. No bleeding and thrombocytopenia stable in 60-70,0000 range. On 10/02 she will be due for maintenance therapy with Daratumumab alone once per month. I will f/u with her in 2 months with myeloma labs, sooner as needed. Velcade and Dexamethasone will be stopped after 8 cycles. 08/13/2020: Mojgan is here for cycle 6, week 2 (day 14) daratumumab 16 mg/kg weekly, Velcade 0.7 mg/m? now sq once weekly for every 3-week cycle (21 days), and dexamethasone 20 mg weekly. No new symptoms--improving thrombocytopenia to 79,000 and improved leukopenia. 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 Still has improvement of M-spike, IgA normal and decreased lambda light chain and K/L ratio. We discussed that week 25 in Oct she will change to monthly daratumumab with weekly Velcade (1mg/m2) and Dexamethasone. Continue to follow every 6-8 weeks until maintenance schedule. 06/18/2020: Mojgan is here for cycle 3 week 3 (day 21) daratumumab 16 mg/kg weekly, Velcade 0.7 mg/m? now sq once weekly for every 5-week cycle (35 days), and dexamethasone 20 mg weekly. Tolerating well with stable leukopenia and thrombocytopenia. Mild increased symptoms of hand and foot neuropathy, but no limitation in activity. Now following with diabetes management clinic with variable glucosecontrol. We reviewed lower IgA (now M-spike IgG kappa after Daratumumab--previously IgA lambda). Lambda light chain has decreased from 516 to 41.3 to now 18.5 with normalization of K/L ratio. Continue followup myeloma labs in 6 weeks, visit in 8 weeks. 05/21/2020: Mojgan is here for cycle 2 (week 7 overall) daratumumab 16 mg/kg weekly, Velcade 0.7 mg/m? now sq once weekly for every 5-week cycle (35 days), and dexamethasone 20 mg weekly. Tolerating well with stable leukopenia and thrombocytopenia. No significant neuropathy. Noted to have improvement in lambda light chains. No further daratumumab infusion reactions. No infections,stable constipation, pain control improved. No other complaints. Continue monthly f/u with myeloma labs. --Diabetes management--added insulin on dexamethasone days. Hyperglycemia improving. 01/18/2020 (phone followup)--The patient's son was available by phone and her daughter was contactedin a separate phone call as patient presented unaccompanied due to COVID-19 precautions in our clinic during the current epidemic. Bone marrow biopsy results were reviewed as follows from procedure pe rformed 01/26/2020: --Bone marrow biopsy was suboptimal for evaluation. --Increased lambda light chain restricted monoclonal plasma cells (1.9% by flow cytometry, approximately 6% and aspirate count, but 50% by immunohistochemical stains [id number]). Sideroblastic iron present, negative for ring sideroblasts. Peripheral blood smear with mild red blood cell anisocytosis and polychromasia, leukopenia with absolute neutropenia (1000) and thrombocytopenia (54,000) consistent with prior baseline. Note: I discussed the results with Dr. Crook 01/26/2020. Preliminary findings were also discussed with Dr. Cummings 01/27/2020. Morphologic findings, immunohistochemical stains, flow cytometry, and ancillary studies may under represent the extent and severity of disease. The results of FISH myeloma panelwith prognostic markers and cytogenetic analysis are pending. --Given the patient's hip pain and presence of lytic lesions, she meets clinicalcriteria for activemyeloma. Given her hip pain and lytic lesions in weightbearing areas she was offered radiation therapy. She had a limited courseof hypofractionated palliative therapy to bilateral proximal femurs [address] Ahn. We discussed that given the COVID-19 epidemic and absence of othersignificant changes other than bony lesions (normal renal function, normal calcium, stable cytopenias), I would defer active therapy for myeloma for 4 to 6 weeks. Since she has significant history ofliver disease I will discuss her case with Dr. Piter Benavidez at [facility] malignant hematology for optimal regimen. The patient is not a transplant candidate given her nonalcoholic steatohepatitis and chronic thrombocytopenia but may be a candidate for either doublet therapy (Revlimid/dexamethasone) or triplet therapy with either Velcade/Revlimid/dexamethasone or daratumumab/Revlimid/dexamethasone. --02/03/2020: Mojgan presented unaccompanied for follow-up of bone marrow aspiration and biopsy performed by Dr. 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 The patient had been noting increased left hip pain over the past several months andplain films of the pelvis and bilateral femurs did show subtle lucencies in the bilateral proximal femurs corresponding to PET/CT findings but no other additional sclerotic lesions identified. No pathologic fractures were seen. --03/05/2020: Mojgan notes improvement of bilateral hip pain since radiation. No other changes in medical history in the past month--no infections, normal renal function, no hypercalcemia. Stable platelet counts without bleeding. Shewas given written literature regarding Dexamethasone, Velcade (thatwould be dose reduced to 0.7mg/m2 twice weekly), weekly Daratumumab and Revlimid, but I will defer decision of which regimen to use until discussion in malignant hematology tumor board. Also referring for infusion port placement prior to initiating therapy. Sign informed consent prior to initiating therapy. --Discussed with Dr. Benavidez who favors Daratumumab combination--will request prior liver biopsy and records from [facility] liver clinic. The patient and her son (by telephone) expressed understanding and will follow- up as directed in 2 weeks for consent and likely start of therapy. --04/02/2020: Mojgan presents after infusion port placement at [facility] by interventional radiology due to platelet count 40,000--she had increased bruising at site post procedure, but this has completely resolved. Her hip painis well controlled since completion of palliative radiation and no newareas of pain. She has previously reviewed information regarding Daratumumab (first dosesplit 8mg/kg IV D1,D2, then if well tolerated 16mg/kg IV weekly), Velcade at about 50% dose (for liver dysfunction) 0.7mg/m2 D1,D4,D8, D11, and [id number] IV weekly--repeat for every 3 week cycles 1st 3 cycles. She will take chemo class and likely start therapy within 2 weeks with toxicity visit in 3 weeks. Today we reviewed chemotherapy counseling for Daratumumab, Velcade, and Dexamethasone. Common toxicities were reviewed to include infusion reaction including rash/dyspnea/wheezing, myelosuppression, fatigue, nausea, vomiting, constipation, diarrhea, mouth sores, and alopecia. Other toxicities may in cludepneumonitis, neurologic, thromboembolism, hyperglycemia, hepatic and renal toxicities. The patient signed informed consent and will follow-up as directed. --04/19/2020: Mojgan is here for cycle 1 week 2 daratumumab 16 mg/kg weekly, Velcade 0.7 mg/m? twice weekly for first 2 weeks of every 3-week cycle, and dexamethasone 20 mg weekly. She did have an infusion reaction with first daratumumab with dyspnea and flushing but this improved after first dose and shehas not had recurrent infusion reactions. We have continued Velcade despite platelet counts in the 40,000 range without bleeding as we know that her baseline platelet counts remain in this range and she has not had any significant change from her baseline. Dexamethasone has caused hyperglycemia with blood sugars up to 400 and we are referring to diabetes management clinic. Otherwise she denies any significant nausea, emesis, fever, chills, night sweats, constipation, diarrhea, rash, mouthsores, or alopecia. She has not hadany change of baseline neuropathy. Liver function tests remain stable. She notes that her hip pain is well controlled since prior palliative radiation and she saw radiation oncology earlier this week with no new recommendations. I will send her myeloma labs including serum and urine protein electrophoresis, quantitative immunoglobulins, and serum kappa/lambda light chains in 2 weeks andfollow-up with her in 3 weeks. She may be seen sooner if new issues arise. This is a now 69-year-old lady on chronic disability has a history of arthritis,diabetes mellitus, hypertension, COPD, GERD, and fibromyalgia who [facility] [place] for chronic mild to moderate thrombocytopenia. She states that she was followed withDr. Kumari prior to his senior care and was told that she had an elevated protein level as well as thrombocytopenia but never had clinical bleeding. She is 4 para4 without complications and was never told that she was thrombocytopenic while . She is had multiple prior surgical procedures without any clinical bleeding. She had been recommended for a pain procedure with but he declined to do the procedure because her platelet count was less than 100,000. For this reason she received 2 platelet transfusions, with little improvement of her platelet count and hersecond transfusion resulted in throat tightening due to allergy to platelets . She has never beentreated with steroids and has never been told that she has immune thrombocytopenia. She has mild leukopenia with relative neutropenia, absolute neutrophil count of 400-800 and mild lymphocytosis. Hemoglobin is normal. She has not had any bright red blood per rectum or epistaxis. She has no history ofbleeding within the family however does have a mother and sister diagnosed with colon cancer, a brother diagnosed with lung cancer, and another sister diagnosedwith breast cancer. She had prior pain in the right hand mainly at the first MCP joint with some associated swelling and right foot pain and was evaluated by podiatry. She was told that her blood tests were negative forgout. She had screening with MALLORY, CCP, and rheumatoid factor all of which were negative. She says that she previously saw Dr. Petersen for cirrhosis but did not know of any specific therapy. We reviewed these findings from her liver ultrasound ordered by Dr. Benavidez Summer 2016. Initial consultation with me March 16, 2017. --The patient has been followed by me for some time for diagnosis of smoldering myeloma with a prior bone marrow biopsy May 2017 showing 15% plasma cells but the patient remained asymptomatic without bone pain or other CRAB criteria for therapy. She is also noted to have an ascending aortic aneurysm and has chronicliver disease with cirrhosis secondary to nonalcoholic steatohepatitis. She haschronic thrombocytopenia without bleeding ranging from 50-100,000 this is felt to be due to sequestration from her nonalcoholic steatohepatitis. She was previously on a liver transplant list but was recently notified that she is no longer a candidate for liver transplant. She has had chronic pain from f ibromyalgia but noted increasing bilateral hip and upper thigh pain over the last 6 months. She also is followed for EGD/colonoscopy with last documented procedure 09/21/2018: 1. Normal EGD, 2. Mild sigmoid diverticulosis, 3. Internal hemorrhoids, grade 2, 4. Anal fissure with active bleeding cauterized by bipolar cautery Bone osseous survey in June 2019 showed osteopenia and degenerative changes but no lytic or blastic lesion. Patient had an F-18 PET scan 01/02/2020 which showed multiple areas of involvementof bones with increased SUV activity. She was contacted with these results by phone and I recommended bone marrow aspirate and biopsy for assessment and analysis. Her prior labs were reviewed. Her SPEP does not show anymonoclonal gammopathy. On VAHID there appears to be a trace of monoclonal gammopathy. Free light chain ratio is less than 100. There is no evidence of renal sufficiency. Patient is not anemic. She doeshave some abnormal areas on bone scan. Summary of Therapies Summary of Therapies: 1. 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 2. She underwent a single dose of palliative radiation therapy to bilateral hips, receiving 800 cGyto right and left hip in 1 fraction in separate vaz (with a single isocenter). The treatments were given with AP/PA vaz [id number] MV photons and MLC blocks. 3. Deferred active therapy for myeloma 2 months given COVID-19 epidemic with increased risk of myelosuppression and viral transmission of contacts. --Follow-up 03/05/2020 I discussed her case with Dr. Piter Benavidez at malignant hematology. --Given her significant hepatic dysfunction, I presented her case at malignant hematology tumor board to discuss optimal therapy. 4. Cycle 1 day 1 04/10/2020: Dose reduced Velcade 0.7 mg/m? twice weekly (day 1,day 4, day 8, day 11)every 3 weeks with dexamethasone 20 mg weekly and daratumumab 16 mg/kg weekly of each 21-day cycle.After first week, Velcade decreased to 0.7mg sq weekly due to thrombocytopenia. --We will need to watch liver function, platelet count, and neuropathy closely on Velcade. 5. Cycle 9 day 1 10/02/2020: Daratumumab 16mg/kg once monthly maintenance therapy until progression. 6. 07/31/2021: Palliative radiation therapy to right supra chondral/soft tissuearea of hip which is PET positive. She received a dose of 3000 cGy in 10 fractions from 07/31/2021 to 08/15/2021 over 15 elapsed days 7. 08/30/2021: Right hip pain improved after radiation. Due to disease progression with persistent cytopenias, changed to repeat loading doses of daratumumab 16 mg/kg weekly for cycles 1 through 3 with Revlimid 5 mg daily for 3 weeks on 1 week off. Held Revlimid second week due to neutropenia with sinus infection, resumed 3 days ago (09/17/2021). Referred for CAR-T therapy evaluation. 8. 12/18/2021: Daratumumab is now 16 mg/kg every 2 weeks with Revlimid 5 mg daily for 2 weeks on 2 weeks off due to neutropenia and thrombocytopenia. Stillpending evaluation for CAR-T therapy. 9. 01/22/2022: Patient is not deemed a candidate for stem cell transplant or CAR- T therapy at this time. Discussed changing from current Revlimid to pomalidomide with continued daratumumab 16 mg/kg every 2 weeks. Plan change in therapy in 1 month. 10. 02/19/2022: Continue daratumumab 16 mg/kg IV every 2 weeks and changed to pomalidomide now 3 mg daily days 1 through 21 of each 28-day cycle (lower dose due to baseline liver dysfunction) -- 03/19/2022: Patient was noted to tolerate Pomalyst only 1 week (03/05- 03/13/2022)due to grade 3 rash. This resolved after stopping medication 1 week later. 1 dose level reduction Pomalyst to 2 mg daily days 1 through 21 of each 28-day cycle. Also holding daratumumab daily for platelet count of 41,000 and will resume at full dose with first dose of Pomalyst. -- 04/09/2022: Platelet 40,000 without bleeding. Will continue monthly Daratumumab with change of Pomalyst to 2mg D1-14 each 28 day cycle (off 2 weeks due to low platelets). Rising lambda light chains,unable to tolerate Pomalyst due to cytopenias, stopped mid 07/2022. 11. 07/18/2022: carfilzomib (dose 20mg/m2 day one then 27mg/m2 D8, D15) with cyclophosphamide 300mg IV weekly and weekly dexamethasone. Baseline echocardiogram EF 60-65%. We will follow closely for her chronic cytopenias andliver dysfunction. -- 10/29/2022: Regimen on hold for past 2 weeks due to cytopenias. Today with ANC 400, holding another week and will reduce dose of carfilzomib to 20mg/m2 IV weekly with cyclophosphamide 300-->240mg/m2 IV weekly, continue weekly dexamethasone. -- 11/26/2022: ANC 700, Platelets 40,000. Continue carfilzomib 20mg/m2 IV weekly with cyclophosphamide 300-->240-->180mg/m2 IV weekly, continue weekly dexamethasone. -- Carfilzomib/cyclophosphamide on hold since 12/04/2022 due to cytopenias, pending evaluation by for bispecific antibody therapy. --01/09/2023: Improving cytopenias ANC 900, platelets 68,000. --02/18/2023: Still on hold since 12/04/2022 (if resumed will give carfilzomib 20mg/m2 IV weekly with cyclophosphamide 300-->120mg/m2 IV weekly. 02/24/2023 bone marrow with 4% plasma cells, hypocellular 10%. Continue to hold active therapy for myeloma 03/2023 and 06/2023 visits. --Virtual visit 06/26/2023: Second opinion with Dr. Lindquist at --in person visit scheduled 07/23/2023 for possible by specific antibody therapy versus CAR-Teligibility. 12. Teclistamab received at [facility]: She was admitted 08/04/2023 for Teclistamab ramp-up [...] IVIG 0.4 mg/kg every 3 months at [facility]--now monthly at -- Teclistamab on hold for pulmonary symptoms as per HPI, cough, injection reactions. ----- -- Teclistamab-cqyv subcu 25 mg once every 3 weeks with dose modification 0.03 mg/kg dose 1 on 08/06/2023, then dose changed to 0.6 mg/kg (49 mg)--most recent records from 09/06/2025 with Teclistamab dose 117 mg (about 95% of standard dose 1.5 mg/kg) now every 3 weeks. -- Cycle 10-day 1: 100% dose 123 mg to start mid September 2024 at [facility]. --Previous doses held cycle 2-day 22 and 28 due to COVID, cycle 3-day 22 and 828for persistent cough then restarted cycle 4-day 01 February 2024. Doses were changed from weekly to every other week 02/23/24. Doses were changed to every 3 weeks 05/24/2024 --IVIG 20 g about once every 4 to 6 weeks with hydrocortisone injections 100 mg each IVIG infusion.IVIG resumed for IgG less than 400 on labs late August at [facility]. no tx 10/2024. Nowreceiving at [facility]. Hepatocellular carcinoma: 2.6 centimeter right hepatic lobe liver lesion, scheduled for biopsy and microwave ablation with Dr. Flores at [facility] 01/05/2025. Transfuse platelets greater than 50,000 for procedure. 12/29/2024: Leg pain bilaterally with labs showing recurrent iron deficiency anemia. Setting up Injectafer 750 mg IV x 2 doses over 2 weeks. Recheck iron stores with CBC in 6 weeks with GLASS [employer]OR Intake Vitals/Pain Assessment 03/16/25 09:23 Height 5 ft 2 in Weight 84.368 kg BMI 34.0 Body Fat % 50.86 BP 109/72 Blood Pressure Location Lt brachial Position Sitting Temp 97.8 F Temp Source Temporal Pulse 75 Pulse Source NIBP Respiration 16 Pulse Oximetry (%) 97 Oxygen Delivery Method room air Are you having pain? Yes Pain Location legs Intake Visit Reasons: Follow Up, follow up visit Accompanied by: Self Allergies diclofenac (From Voltaren) Allergy (Unknown, Verified 02/14/25 14:40) Hives doxycycline (From Vibramycin) Allergy (Unknown, Verified 02/14/25 14:40) Hives moxifloxacin (From Avelox) Allergy (Unknown, Verified 02/14/25 14:40) Hives erythromycin base (From E-Mycin) Allergy (Verified 02/14/25 14:40) Hives Pt has tolerated azithromycin without issue. latex Allergy (Verified 02/14/25 14:40) Unknown Reaction Quinolones Allergy (Verified 02/14/25 14:40) Unknown Reaction tetracycline Allergy (Verified 02/14/25 14:40) Unknown Reaction Home Medications - Last Reconciled 03/16/25 by CAITLIN Cardoso acyclovir 400 mg PO BID 90 days atorvastatin 40 mg (1/2 x 80 mg) PO DAILY Breztri Aerosphere 160-9-4.8 mcg/actuation (rkiuirsnpc-eklwurdx-zpgiomknqe) 2 inhalations inhalation BID 30 days NS carvedilol 12.5 mg PO BID cetirizine (Zyrtec) 10 mg PO DAILY PRN cholecalciferol (vitamin D3) 125 mcg PO DAILY cyanocobalamin (vitamin B-12) 1,000 mcg sublingual DAILY diazepam 5 mg orally 1 dose 30 minutes prior to PET scan, may repeat once 5 minutes before PRN; 1 day duloxetine 60 mg PO DAILY epinephrine 0.3 mg IM ONCE PRN fluticasone propionate 50 mcg/actuation 1 spray intranasal DAILY PRN furosemide (Lasix) 20 mg PO QAM gabapentin 400 mg PO TID 30 days hydrocortisone 2.5% (Anusol-HC) 1 applic PA BID-QID PRN hydrocortisone-pramoxine 25-18 mg 1 supp PA BID lidocaine 5% 1 applic topical BID PRN lorazepam (Ativan) 0.5 mg PO ONCE PRN 1 day magnesium oxide TAKE 1 TABLET BY MOUTH EVERY DAY melatonin 2 mg PO QHS metformin ER 500 mg PO DAILY naloxone 4 mg/actuation 1 spray intranasal Q2-3M PRN ondansetron 8 mg PO Q8HR PRN oxycodone 10 mg PO Q4-6H PRN 30 days pantoprazole 40 mg PO DAILY potassium chloride ER TAKE 1 CAPSULE BY MOUTH EVERY DAY semaglutide (Ozempic) 0.25 mg subcut QWEEK sennosides (Senokot) 8.6 mg PO DAILY sodium chloride 3% 3 mL inhalation TID 30 days sodium chloride 0.9% 3 mL inhalation Q12HR 30 days sulfamethoxazole-trimethoprim 800-160 mg 1 tab PO QMWF 90 days sumatriptan succinate take 1 tab at onset of headache; if no relief may repeat 1tab after at least 2 hrs; max = 4 tabs/24 hr PO Gastrointestinal Is the patient taking opioids for pain control?: Yes Bowel Pattern: Regular Falls Fall Precaution Measures Taken: Patient in chair Nurse's Note: Patient is here today for a follow up visit [facility] Medical History Medical History Thrombocytopenia Neuropathy Acute alteration in mental status 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 Fibromyalgia DM2 (diabetes mellitus, type 2) Smoldering multiple myeloma (SMM) Neuropathy Hypertension Multiple myeloma Temporary low platelet count COPD (chronic obstructive pulmonary disease) PFT: 02/24/2024 -FEV1/FVC: 70% -FEV1: 87% -FVC: 95% -LXK06-11%: 60% -Bronchodilator response: None -RV: 118% -T% -DLCO: 71% -Flow-volume loop: Mild obstruction Smoldering myeloma Fibromyalgia Neutropenia Diabetes Iron deficiency Smoldering multiple myeloma (SMM) GERD (gastroesophageal reflux disease) Aortic aneurysm monitoring Surgical History Surgical History H/O knee surgery 2006 History of appendectomy H/O: hysterectomy 1994 History of cholecystectomy 1989 Family History Family History Brother Cancer lung Hypertension COPD (chronic obstructive pulmonary disease) Alcoholic Father Cancer Asthma Emphysema lung Hypertension Alcoholic Family/Other 3 brothers :2 sisters Grandparent Diabetes Maternal Grand Mother Mother Cancer colon Heart disease Hypertension Sister Cancer Legacy FamHx Problem: Diagnosed with Cancer Social History Social History Smoking status: Former smoker Nicotine containing products detail: quit in 1999 Within the past year, how often did you have a drink containing alcohol: never AUDIT-C Alcohol total score: 0 AUDIT-C Alcohol score interpretation: A score less than 3 is consistent with normal alcohol consumption. In the past 12 months, have you used illegal drugs or prescription drugs for non-medical reasons?: No Review of Systems Constitutional: No Chills, No Diaphoresis, persistent chronic fatigue since starting Teclistamab BiTE at , no Fever, No Malaise, No Night Sweats, No Weakness, No Weight Gain, No Weight Loss Gastrointestinal: No Abdominal Pain, No Black Stool, No Bloating, No Bloody Stool, Positive Rectal Pain due to hemorrhoids, positive for constipation (improved with 2 colace/senna twice daily), No Diarrhea, No Dysphagia, No Hematemesis, No Nausea, No Postprandial Pain, No Rectal Bleeding, No Vomiting, Other (chronic gastroesophageal reflux stable) --As per HPI patient was hospitalized at [facility] April 2020 for spontaneous bacterial peritonitis secondary to Enterobacter. She has longstanding nonalcoholic steatohepatitiswith cirrhosis, followed by [facility] hepatology and [facility] gas troenterology. -- 11/16/2024: Normal AFP but new 2.5 cm segment 7 mass consistent with hepatocellular carcinoma. 01/05/2025 underwent biopsy and microwave ablation at interventional radiology. Also refractory hemorrhoid pain, too medically complex for procedure at [facility]. Sent to colorectal surgery for eval--treating with compounded suppositories, not surgical candidate. Cardiovascular: No Chest Pain, No Edema, No Palpitations, No Syncope. Recurrent A-fib followed by [facility] cardiology. Genitourinary: No Discharge, No Dysuria, No Flank Pain, Frequency (now on medication since Thursday for UTI), Resolved Hematuria, No Incontinence, No Nocturia, No Urgency, No Urinary Retention Musculoskeletal: Stable symptoms of left shoulder and neck pain as per HPI (no thoracic cord compression). Stable right hip/thigh pain; stable intermittent lumbar back pain, No Chest Wall Tenderness,Improvement of prior Joint Pain, Muscle Stiffness, Myalgia (history of fibromyalgia), --unremarkable skeletal survey June 2019. 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 12/2020: F-18 PET/CT stable. 04/2021 F-18 PET/CT stable. Right hip pain mildly improved after palliative radiation. 04/30/2022 repeat Axumin F-18 PET/CT stablefrom 1 year ago. 09/21/2024: Ordered 1 year follow-up examination F-18 PET/CT : Similar radiotracer accumulation through skeletal structures with no new areas of abnormal tracer uptake 12/29/2024: Reported severe bilateral leg pain and headache, treating for iron deficiency anemia with infusional iron. Reassess symptoms and labs in 6 weeks. HEENT: Intermittent frontal headache and sinus tenderness/congestion--improved since antibiotics and steroids. No Blurred Vision, No Discharge, No Ear Pain, No Epistaxis, No Sore Throat --patient was seen in emergency department November 2019 with persistent epistaxis. She was treated with nasal clip and packing and was advised to continue Afrin. No recurrent bleeding. 2 courses of antibiotics in Aug-Sep 2021 for recurrent sinusitis. Respiratory: Follow-up with Dr. Raymundo of pulmonary medicine, stable productive yellow sputum, Shortness of Breath (chronic and unchanged due to COPD), No Wheezing--shortness of breath with daratumumab reaction dose 1 04/10/2020 (given asplit dose over 2 days). No pulmonary complications on BiTE therapy. Neurological: No Dizziness, Stable Numbness/Tingling (reports long-standing bilateral foot numbness--unchanged since starting low-dose Velcade 04/10/2020), NoPre-existing Deficit (no history of stroke or seizure), intermittent headache. No neurologic ICANS complications o BiTE therapy Hematologic/Lymphatic: No significant bleeding thrombocytopenia from sequestration/myeloma disease,Bruises Easily, No Enlarged Lymph Nodes, Other (reports allergy to prior platelet transfusion, prior allergy to IVIG at --no recent reactions) Endocrine: Excessive Sweating (hot flashes, postmenopausal) Flushing, No Intolerance to Cold, Intolerance to Heat Psychiatric: No Depressed Mood, No Insomnia Integumentary: No Jaundice, No Lesions, no rashes. No injection site reactions. Allergic/Immunology: No significant rash or pruritus. Physical Exam EXAM ECOG PS 2, Pain 3-5/10 bilateral legs (stable), perianal hemorrhoidal pain stable with suppositories as per HPI Patient is alert and oriented x3. HEAD / FACE: Normocephalic. No tenderness to palpation over scalp, no sinus tenderness to palpation. EYES: Pupils are equal and reactive to light. Conjunctivae and lids are benign in appearance. Ocular movement intact. EARS: Hearing grossly intact. NOSE / MOUTH / THROAT: No frontal/mild bilateral maxillary sinus tenderness. Nooral thrush or aphthous ulcerations. NECK / THYROID: No cervical adenopathy on exam. Thyroid is symmetrical, withoutthyromegaly, masses or palpable nodules. RESPIRATORY: Normal inspection. Lungs clear to auscultation and percussion--negative for rhonchi, wheezing, rales, or rubs. Normal effort. CARDIOVASCULAR: Regular rate and rhythm. No murmurs, gallops, or rubs. ABDOMEN: Bowel sounds normoactive. Soft, nontender and non-distended. No hepatosplenomegaly. No masses. PERIANAL EXAM (deferred at 03/16/2025 follow-up): Multiple prolapsed hemorrhoids that are tender to palpation. Internal rectal exam was deferred. INTEGUMENTARY: No suspicious lesions or rash. Scattered arm bruising. No petechiae noted. MUSCULOSKELETAL: Normal musculature, normal ROM upper and lower extremities, no crepitus. EXTREMITIES: No leg edema. No cyanosis or clubbing. NEUROLOGICAL: Alert and oriented. Cranial nerves intact. No gross motor or sensory deficits, patient ambulates unassisted. PSYCHIATRIC: No anxiety or evidence of depression. [facility] - [facility] LAB RESULTS Corrected WBC 2.5 X10E3/uL (3.8-11.6) L 03/15/25 14:50 03/15 Hgb 12.4 g/dL (11.8-15.4) 03/15/25 14:50 03/15/25 Hct 36.4 % (34.0-46.4) 03/15/25 14:50 03/15/25 MCV 98.8 fl (80-100) 03/15/25 14:50 03/15/25 RDW 17.9 % (11.9-15.3) H 03/15/25 14:50 03/15/25 Plt Count 46 x10E3/uL (150-450) L 03/15/25 14:50 5 Sodium 136 mmol/L (136-145) 03/15/25 14:50 03/15/25 Potassium 4.2 mmol/L (3.5-5.1) 03/15/25 14:50 03/15/25 BUN 21 mg/dL (7-25) 03/15/25 14:50 03/15/25 Creatinine 0.99 mg/dL (0.60-1.20) 03/15/25 14:03/15/25 Glucose 130 mg/dL (70-100) H 03/15/25 14:50 03/15/25 Est GFR (CKD-EPI) > 60.0 mL/Min 03/15/25:03/15/25 Calcium 8.9 mg/dL (8.6-10.3) 03/15/25 14:50 03/15/25 Total Bilirubin 0.9 mg/dl (0.3-1.0) 03/15/25 14:50 03/15/25 AST 45 U/L (13-39) H 03/15/25 14:50 03/15/25 ALT 28 U/L (7-52) 03/15/25 14:50 03/15/25 Alkaline Phosphatase 171 U/L (34-104) H 03/15/25 14:50 5 Iron 102 ug/dL (50-212) 03/15/25 14:50 03/15/25 Iron Saturation 37.0 % (20-50) 03/15/25 14:50 03/15/25 Ferritin 454.3 ng/mL (11.0-306.8) H 03/15/25 14:03/02 Total Protein 6.1 gm/dL (6.4-8.9) L 03/15/25 14:50 03/15/25 Albumin 3.6 gm/dL (3.5-5.7) 03/15/25 14:50 03/15/25 RADIOLOGY/IMAGING RESULTS No new imaging for review. Plan MRI of liver early April for follow-up after hepatic ablation therapy for HCC. Social Determinants of Health Screening SDOH last assessed in clinic: 03/16/25 Will the patient participate in the screening?: Yes Do you worry about having a steady place to live?: No In the past 12 months, have you had to go without electric, gas, oil, or water in your home?: No Have you or anyone in your house had to go without enough food to eat?: No Has lack of reliable transportation kept you from medical appointments or from doing things needed for daily living?: No Has anyone in your support network made you feel unsafe for any reason?: No Does the patient want assistance with any of the above?: No Dictated By: Fabiola Marinelli MD DD/ 09 Signed By: <Electronically signed by MD Fabiola Marinelli> 03/16/25 1424 [facility] Work Phone: Progress note No data available for this section [facility] reason for referral (narrative)* Outpatient Procedure (Routine) - AuthorizedSpecialtyDiagnoses / ProceduresReferred By Contact [facility] Diagnoses Nonrheumatic aortic valve stenosis Aneurysm of ascending aorta without rupture (HCC) Procedures ECHO ECHO TTHRC R-T 2D W/WOM-MODE COMPL SPEC&[place] [address] [place] [address] [facility] [address] [place] [address] Referral IDStatusReasonStart DateExpiration DateVisits RequestedVisits [id number] Auto-Generated Referral / * Outpatient Procedure (Routine) - New RequestSpecialtyDiagnoses / Procedures Referred By ContactReferred [facility] Diagnoses Nonrheumatic aortic valve stenosis Aneurysm of ascending aorta without rupture (HCC) Procedures ECG COMPLETE ECG ROUTINE ECG W/LEAST 12 LDS W/I&[place] [address] [place] [address] [facility] [address] [place] [address] Referral IDStatusReasonStsturgeon lake DateExpiration DateVisits RequestedVisits [id number] Request Auto-Generated Referral / [facility] for referral (narrative)No reason for referral information availableC[facility] Work Phone: Reason for visit Narrative* Consultation (Routine) - Pending ReviewSpecialtyDiagnoses / ProceduresReferred By ContactReferred To Contact Referral IDStatusReasonStart DateExpiration DateVisits RequestedVisits [id number] Review/ [facility] Work Phone: reason for visit Narrative* Consultation (Routine) - Pending ReviewSpecialtyDiagnoses / ProceduresReferred By ContactReferred To Contact Referral IDStatusReasonStart DateExpiration DateVisits RequestedVisits [id number] Review/ [facility] Work Phone: Reclmy for visit Narrative* Imaging (Routine) - Pending ReviewSpecialtyDiagnoses / ProceduresReferred By ContactReferred To ContactRadiology Diagnoses Monoclonal gammopathy Liver cell carcinoma (Multi) Procedures Consult to Interventional Radiology Fabiola Marinelli MD [address] [place] [address] Phone: tel: fax: Referral IDStatusReasonStart DateExpiration DateVisits RequestedVisits [id number] Review Perform Procedure [facility] Work Phone: Relvqb for visit Narrative* Imaging (Routine) - AuthorizedSpecialtyDiagnoses / ProceduresReferred By ContactReferred To ContactRadiology Diagnoses Liver cell carcinoma (Multi) Procedures US guided needle liver biopsy Raman Nicholas, VISUAL [employer] DEVELOP[employer] REPRESENTATIVE [address] Department [place] [address] Phone: tel: fax: Referral IDStatusReasonStart DateExpiration DateVisits RequestedVisits [id number] Perform Procedure [facility] Work Phone: reason for visit Narrative* Imaging (Routine) - AuthorizedSpecialtyDiagnoses / ProceduresReferred By ContactReferred To ContactRadiology Diagnoses Liver cell carcinoma (Multi) Procedures US guided RF ablation liver Raman Nicholas, VISUAL [employer] DEVELOPMENT REPRESENTATIVE [address] [place] [address] Phone: tel: fax: Referral IDStatusReasonStart DateExpiration DateVisits RequestedVisits [id number] Perform Procedure [facility] Work Phone: reason for visit Narrative* Imaging (Routine) - AuthorizedSpecialtyDiagnoses / ProceduresReferred By ContactReferred To ContactRadiology Diagnoses Liver cell carcinoma (Multi) Procedures CT guided RF ablation liver Raman Nicholas, VISUAL [employer] DEVELOPMENT REPRESENTATIVE [address] [place] [address] Phone: tel: fax: Referral IDStatusReasonStart DateExpiration DateVisits RequestedVisits [id number] Perform Procedure [facility] Work Phone: Rezyex for visit Narrative* Imaging (Routine) - AuthorizedSpecialtyDiagnoses / ProceduresReferred By ContactReferred To ContactRadiology Diagnoses Liver cell carcinoma Procedures CT guided RF ablation liver Raman Nicholas, VISUAL [employer] DEVELOPMENT REPRESENTATIVE [address] [place] [address] Phone: tel: fax: Referral IDStatusReasonStart DateExpiration DateVisits RequestedVisits [id number] Perform Procedure [facility] Work Phone: reason for visit Narrative* Imaging (Routine) - AuthorizedSpecialtyDiagnoses / ProceduresReferred By ContactReferred To ContactRadiology Diagnoses Liver cell carcinoma Procedures US guided RF ablation liver Raman Nicholas, VISUAL [employer] DEVELOPMENT REPRESENTATIVE [address] [place] [address] Phone: tel: fax: Referral IDStatusReasonStart DateExpiration DateVisits RequestedVisits [id number] Perform Procedure [facility] Work Phone: Summary Purpose Family History Relationship Condition Age at Onset Recorded Date/T levar Not Specified Chronic obstructive pulmonary disease Un known Relationship Condition Age at Onset Recorded Date/T levar Not Specified Chronic obstructive pulmonary disease Un known brotherMalignant neoplasmUnknownfatherDeceasedUnknownMalignant neoplasmUnknown family memberDeceasedUnknowngrandparentDiabetes mellitusUnknownNot Specified Malignant neoplasmUnknownHeart diseaseUnknownHypertensionUnknownDeceasedUnknown sisterMalignant neoplasmUnknown Relationship Condition Age at Onset Recorded Date/T levar brother Malignant neoplasm Unknown HypertensionUnknownChronic obstructive pulmonary diseaseUnknownAlcoholismUnknown fatherDeceasedUnknownMalignant neoplasmUnknownAsthmaUnknownPulmonary emphysema Unknownfamily memberDeceasedUnknowngrandparentDiabetes mellitusUnknownNot SpecifiedMalignant neoplasmUnknownHeart diseaseUnknownDeceasedUnknownsister Malignant neoplasmUnknown Relationship Condition Age at Onset Recorded Date/T levar brother Malignant neoplasm Unknown HypertensionUnknownChronic obstructive pulmonary diseaseUnknownAlcoholismUnknown fatherDeceasedUnknownMalignant neoplasmUnknownAsthmaUnknownPulmonary emphysema Unknownfamily memberDeceasedUnknowngrandparentDiabetes mellitusUnknownmother Malignant neoplasmUnknownHeart diseaseUnknownDeceasedUnknownsisterMalignant neoplasmUnknown Advance Directives Advance Directive Response Recorded Date/ Time Advance Directives No July 2:24pm Advance Directive Response Recorded Date/ Time Advance Directives No July 1:24pm Code StatusDate ActivatedDate InactivatedCommentsFull Code08/04/2023 12:24 AM QuestionAnswerCommentsPlan of Care:Code Status Discussion CompletedDecision Maker:PatientCode StatusDate ActivatedDate InactivatedCommentsFull Code08/04/2023 12:24 AM08/04/2023 12:24 AMQuestionAnswerCommentsPlan of Care:Code Status Discussion CompletedDecision Maker:PatientCode StatusDate ActivatedDate InactivatedCommentsFull Code08/04/2023 12:24 AM08/13/2023 3:26 PMQuestionAnswer CommentsPlan of Care:Code Status Discussion CompletedDecision Maker:PatientCode StatusDate ActivatedDate InactivatedCommentsFull Code08/04/2023 12:24 AM08/04/2023 12:24 AMQuestionAnswerCommentsPlan of Care:Code Status Discussion Completed Decision Maker:PatientCode StatusDate ActivatedDate InactivatedCommentsFull Code 11/18/2023 2:23 PMQuestionAnswerCommentsPlan of Care:Code Status Discussion CompletedDecision Maker:PatientCode StatusDate ActivatedDate InactivatedComments Full Code08/04/2023 12:24 AM08/13/2023 3:26 PMQuestionAnswerCommentsPlan of Care: Code Status Discussion CompletedDecision Maker:PatientFull Code08/04/2023 12:24 AM08/04/2023 12:24 AMQuestionAnswerCommentsPlan of Care:Code Status Discussion CompletedDecision Maker:PatientCode StatusDate ActivatedDate InactivatedComments Full Code11/18/2023 2:23 PMQuestionAnswerCommentsPlan of Care:Code Status Discussion CompletedDecision Maker:PatientCode StatusDate ActivatedDate InactivatedCommentsFull Code08/04/2023 12:24 AM08/13/2023 3:26 PMQuestionAnswer CommentsPlan of Care:Code Status Discussion CompletedDecision Maker:PatientFull Code08/04/2023 12:24 AM08/04/2023 12:24 AMQuestionAnswerCommentsPlan of Care:Code Status Discussion CompletedDecision Maker:PatientCode StatusDate ActivatedDate InactivatedCommentsFull Code11/18/2023 2:23 PMQuestionAnswerCommentsPlan of Care: Code Status Discussion CompletedDecision Maker:PatientCode StatusDate Activated Date InactivatedCommentsFull Code08/04/2023 12:24 AM08/13/2023 3:26 PMQuestion AnswerCommentsPlan of Care:Code Status Discussion CompletedDecision Maker: PatientFull Code08/04/2023 12:24 AM08/04/2023 12:24 AMQuestionAnswerCommentsPlan of Care:Code Status Discussion CompletedDecision Maker:PatientDate ActivatedDate InactivatedComments11/18/2023 2:23 PMQuestionAnswerCommentsPlan of Care:* Code Status Discussion Completed Decision Maker:* Patient Date ActivatedDate WqfzfjobqjlGrdyxcsy22/3/2023 12:24 AM08/13/2023 3:26 PM QuestionAnswerCommentsPlan of Care:* Code Status Discussion Completed Decision Maker:* Patient Date ActivatedDate PltlohqcftqSuwpdpxi82/3/2023 12:24 AM08/04/2023 12:24 AM QuestionAnswerCommentsPlan of Care:* Code Status Discussion Completed Decision Maker:* Patient Date ActivatedDate InactivatedComments11/18/2023 2:23 PMQuestionAnswerComments Plan of Care:* Code Status Discussion Completed Decision Maker:* Patient Date ActivatedDate AshuelhbvwgJkhzshgh27/3/2023 12:24 AM08/13/2023 3:26 PM QuestionAnswerCommentsPlan of Care:* Code Status Discussion Completed Decision Maker:* Patient Date ActivatedDate DvgerqcbrvjTwttjzcr62/3/2023 12:24 AM08/04/2023 12:24 AM QuestionAnswerCommentsPlan of Care:* Code Status Discussion Completed Decision Maker:* Patient Date ActivatedDate InactivatedComments03/01/2025 2:43 PM Procedure Findings Note Pre-procedure Verification a nd Time Out: Pre-Procedure Verification and Time Out: Procedure Locationprocedure area HUDDLE - Pre-procedure Verificationcompleted TIME OUT - Final Verificationcompleted DEBRIEFcompleted General Information: Anesthesia Critical Care: Non-Anesthesia Post-Procedure Diagnosis: Myeloma Procedure Name: Mediport placement Findings: grossly normal anatomy Procedure performed by: me Machine Tester(s): none Estimated Blood Loss (mL): none Specimen: no Informed Consent: written consent obtained Electronic Signatures: Дмитрий Flores) (Signed 22-Mar-2020 10:05) Authored: Pre-procedure Verification and Time Out, General Information, Signature/Cosignature/Attestation Last Updated: 22-Mar-2020 10:05 by Дмитрий Flores) Chief Complaint and Reason for Visit Chief Complaint Smoldering Myeloma Reason for Visit Acute right hip pain Hematuria Acute thoracic back pain Cancer-related pain Degenerative cervical spinal stenosis Diabetes mellitus Encounter for antineoplastic immunotherapy Fibromyalgia History of 2018 novel coronavirus disease (COVID-19) Iron deficiency Liver cirrhosis secondary to KAPADIA (nonalcoholic steatohepatitis) Multiple myeloma Neutropenia, unspecified Obesity 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 Chief Complaint Smoldering Myeloma i50.811 i71.21 z79.899 c90.00 c88.9Reason for VisitAcute right hip pain Hematuria Acute thoracic back pain Cancer-related pain Degenerative cervical spinal stenosis Diabetes mellitus Encounter for antineoplastic immunotherapy Fibromyalgia History of 2018 novel coronavirus disease (COVID-19) Iron deficiency Liver cirrhosis secondary to KAPADIA (nonalcoholic steatohepatitis) Multiple myeloma Neutropenia, unspecified Obesity 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 Chief Complaint i50.811 i71.21 z79.8 99 c90.00 c88.9 Smoldering MyelomaReason for VisitAcute right hip pain Hematuria Acute thoracic back pain Cancer-related pain Degenerative cervical spinal stenosis Diabetes mellitus Encounter for antineoplastic immunotherapy Fibromyalgia History of 2019 novel coronavirus disease (COVID-19) Iron deficiency Liver cirrhosis secondary to KAPADIA (nonalcoholic steatohepatitis) Multiple myeloma Neutropenia, unspecified Obesity 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 Chief Complaint i50.811 i71.21 z79.8 99 c90.00 c88.9 Smoldering MyelomaReason for VisitAcute right hip pain Hematuria Acute thoracic back pain Cancer-related pain Degenerative cervical spinal stenosis Diabetes mellitus Encounter for antineoplastic immunotherapy Encounter for chemotherapy management Fibromyalgia History of 2018 novel coronavirus disease (COVID-19) Iron deficiency Liver cirrhosis secondary to KAPADIA (nonalcoholic steatohepatitis) Multiple myeloma Neutropenia, unspecified Obesity 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 Chief Complaint i50.811 i71.21 z79.8 99 c90.00 c88.9 Smoldering Myeloma right heart failure I71.21 z79.899Reason for VisitAcute right hip pain Chemotherapy-induced neutropenia Hematuria Acute thoracic back pain Cancer-related pain Degenerative cervical spinal stenosis Diabetes mellitus Encounter for antineoplastic immunotherapy Encounter for chemotherapy management Fibromyalgia History of 2018 novel coronavirus disease (COVID-19) Iron deficiency Liver cirrhosis secondary to KAPADIA (nonalcoholic steatohepatitis) Multiple myeloma Neutropenia, unspecified Obesity 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 Chief Complaint right heart failure I71.21 z79.899 Smoldering MyelomaReason for VisitAcute right hip pain Chemotherapy-induced neutropenia Hematuria Acute thoracic back pain Cancer-related pain Degenerative cervical spinal stenosis Diabetes mellitus Encounter for antineoplastic immunotherapy Encounter for chemotherapy management Fibromyalgia History of 2019 novel coronavirus disease (COVID-19) Iron deficiency Liver cirrhosis secondary to KAPADIA (nonalcoholic steatohepatitis) Multiple myeloma Neutropenia, unspecified Obesity 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 Chief Complaint right heart failure I71.21 z79.899 Smoldering MyelomaReason for VisitAcute right hip pain Frontal sinusitis Hematuria Acute thoracic back pain Cancer-related pain Chemotherapy-induced neutropenia Degenerative cervical spinal stenosis Diabetes mellitus Encounter for antineoplastic immunotherapy Encounter for chemotherapy management Fibromyalgia History of 2019 novel coronavirus disease (COVID-19) Iron deficiency Liver cirrhosis secondary to KAPADIA (nonalcoholic steatohepatitis) Multiple myeloma Neutropenia, unspecified Obesity 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 Chief Complaint right heart failure I71.21 z79.899 Smoldering Myeloma Z13.820Reason for VisitAcute right hip pain Hematuria Acute thoracic back pain Cancer-related pain Chemotherapy-induced neutropenia Degenerative cervical spinal stenosis Diabetes mellitus Encounter for antineoplastic immunotherapy Encounter for chemotherapy management Fibromyalgia Frontal sinusitis History of 2019 novel coronavirus disease (COVID-19) Iron deficiency Liver cirrhosis secondary to KAPADIA (nonalcoholic steatohepatitis) Multiple myeloma Neutropenia, unspecified Obesity 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 Chief Complaint right heart failure I71.21 z79.899 Z13.820 Smoldering MyelomaReason for VisitAcute right hip pain Hematuria Acute thoracic back pain Cancer-related pain Chemotherapy-induced neutropenia Degenerative cervical spinal stenosis Diabetes mellitus Encounter for antineoplastic immunotherapy Encounter for chemotherapy management Fibromyalgia Frontal sinusitis History of 2018 novel coronavirus disease (COVID-19) Iron deficiency Liver cirrhosis secondary to KAPADIA (nonalcoholic steatohepatitis) Multiple myeloma Neutropenia, unspecified Obesity 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 Chief Complaint right heart failure I71.21 z79.899 Z13.820 Smoldering Myeloma urogenitalReason for VisitAcute right hip pain Hematuria Acute thoracic back pain Cancer-related pain Chemotherapy-induced neutropenia Degenerative cervical spinal stenosis Diabetes mellitus Encounter for antineoplastic immunotherapy Encounter for chemotherapy management Fibromyalgia Frontal sinusitis History of 2018 novel coronavirus disease (COVID-19) Iron deficiency Liver cirrhosis secondary to KAPADIA (nonalcoholic steatohepatitis) Multiple myeloma Neutropenia, unspecified Obesity 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 Hematuria Immunosuppression Pancytopenia UTI (urinary tract infection) Diabetes mellitus Fibromyalgia Liver cirrhosis secondary to KAPADIA (nonalcoholic steatohepatitis) Multiple myeloma Chief Complaint right heart failure I71.21 z79.899 Z13.820 Smoldering Myeloma urogenitalReason for VisitAcute right hip pain Hematuria Acute thoracic back pain Cancer-related pain Chemotherapy-induced neutropenia Degenerative cervical spinal stenosis Diabetes mellitus Encounter for antineoplastic immunotherapy Encounter for chemotherapy management Fibromyalgia Frontal sinusitis History of 2018 novel coronavirus disease (COVID-19) Iron deficiency Liver cirrhosis secondary to KAPADIA (nonalcoholic steatohepatitis) Multiple myeloma Neutropenia, unspecified Obesity 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 Hematuria Hypogammaglobulinemia Immunosuppression Pancytopenia UTI (urinary tract infection) Diabetes mellitus Fibromyalgia Liver cirrhosis secondary to KAPADIA (nonalcoholic steatohepatitis) Multiple myeloma 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 Chief Complaint Z13.820 urogenital Smoldering Myeloma C90.00Reason for VisitHematuria Hypogammaglobulinemia Immunosuppression Pancytopenia UTI (urinary tract infection) Diabetes mellitus Fibromyalgia Liver cirrhosis secondary to KAPADIA (nonalcoholic steatohepatitis) Multiple myeloma 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 Acute right hip pain Hematuria Acute thoracic back pain Cancer-related pain Chemotherapy-induced neutropenia Degenerative cervical spinal stenosis Diabetes mellitus Encounter for antineoplastic immunotherapy Encounter for chemotherapy management Fibromyalgia History of 2018 novel coronavirus disease (COVID-19) Iron deficiency Liver cirrhosis secondary to KAPADIA (nonalcoholic steatohepatitis) Multiple myeloma Neutropenia, unspecified Obesity 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 Frontal sinusitis Chief Complaint Z13.820 urogenital C90.00 Smoldering MyelomaReason for VisitHematuria Hypogammaglobulinemia Immunosuppression Pancytopenia UTI (urinary tract infection) Diabetes mellitus Fibromyalgia Liver cirrhosis secondary to KAPADIA (nonalcoholic steatohepatitis) Multiple myeloma 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 Multiple myeloma Acute right hip pain Hematuria Acute thoracic back pain Cancer-related pain Chemotherapy-induced neutropenia Degenerative cervical spinal stenosis Diabetes mellitus Encounter for antineoplastic immunotherapy Encounter for chemotherapy management Fibromyalgia History of 2018 novel coronavirus disease (COVID-19) Iron deficiency Liver cirrhosis secondary to KAPADIA (nonalcoholic steatohepatitis) Multiple myeloma Neutropenia, unspecified Obesity 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 Frontal sinusitis Chief Complaint Smoldering Myeloma Reason for Visit Acute right hip pain Bone marrow hypocellularity Hematuria Acute thoracic back pain Cancer-related pain Chemotherapy-induced neutropenia Degenerative cervical spinal stenosis Diabetes mellitus Encounter for antineoplastic immunotherapy Encounter for chemotherapy management Encounter for coordination of complex care Fibromyalgia History of 2018 novel coronavirus disease (COVID-19) Iron deficiency Liver cirrhosis secondary to KAPADIA (nonalcoholic steatohepatitis) Multiple myeloma Neutropenia, unspecified Obesity 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 Frontal sinusitis Chief Complaint Smoldering Myeloma Reason for Visit Acute right hip pain Hematuria Acute thoracic back pain Bone marrow hypocellularity Cancer-related pain Chemotherapy-induced neutropenia Degenerative cervical spinal stenosis Diabetes mellitus Encounter for antineoplastic immunotherapy Encounter for chemotherapy management Encounter for coordination of complex care Fibromyalgia History of 2018 novel coronavirus disease (COVID-19) Iron deficiency Liver cirrhosis secondary to KAPADIA (nonalcoholic steatohepatitis) Multiple myeloma Neutropenia, unspecified Obesity 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 Frontal sinusitis Chief Complaint Smoldering Myeloma back pain cancer patientReason for VisitAcute right hip pain Hematuria Acute thoracic back pain Bone marrow hypocellularity Cancer-related pain Chemotherapy-induced neutropenia Chronic copper deficiency Degenerative cervical spinal stenosis Diabetes mellitus Encounter for antineoplastic immunotherapy Encounter for chemotherapy management Encounter for coordination of complex care Fibromyalgia History of 2018 novel coronavirus disease (COVID-19) Iron deficiency Liver cirrhosis secondary to KAPADIA (nonalcoholic steatohepatitis) Multiple myeloma Neutropenia, unspecified Obesity 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 Frontal sinusitis Chief Complaint Smoldering Myeloma back pain cancer patient headacheReason for VisitAcute right hip pain Hematuria Acute thoracic back pain Bone marrow hypocellularity Cancer-related pain Chemotherapy-induced neutropenia Chronic copper deficiency Degenerative cervical spinal stenosis Diabetes mellitus Encounter for antineoplastic immunotherapy Encounter for chemotherapy management Encounter for coordination of complex care Fibromyalgia History of 2018 novel coronavirus disease (COVID-19) Iron deficiency Liver cirrhosis secondary to KAPADIA (nonalcoholic steatohepatitis) Multiple myeloma Neutropenia, unspecified Obesity 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 Frontal sinusitis Chief Complaint headache Smoldering MyelomaReason for VisitAcute right hip pain Hematuria Acute thoracic back pain Bone marrow hypocellularity Cancer-related pain Chemotherapy-induced neutropenia Chronic copper deficiency Degenerative cervical spinal stenosis Diabetes mellitus Encounter for antineoplastic immunotherapy Encounter for chemotherapy management Encounter for coordination of complex care Fibromyalgia History of 2018 novel coronavirus disease (COVID-19) Iron deficiency Liver cirrhosis secondary to KAPADIA (nonalcoholic steatohepatitis) Multiple myeloma Neutropenia, unspecified Obesity 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 Frontal sinusitis Chief Complaint headache Smoldering Myeloma R05.1Reason for VisitAcute right hip pain Hematuria Acute thoracic back pain Bone marrow hypocellularity Cancer-related pain Chemotherapy-induced neutropenia Chronic copper deficiency Degenerative cervical spinal stenosis Diabetes mellitus Encounter for antineoplastic immunotherapy Encounter for chemotherapy management Encounter for coordination of complex care Fibromyalgia History of 2018 novel coronavirus disease (COVID-19) 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 Iron deficiency Liver cirrhosis secondary to KAPADIA (nonalcoholic steatohepatitis) Multiple myeloma Neutropenia, unspecified Obesity 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 Frontal sinusitis Chief Complaint 3 Month Follow Up Smoldering Myeloma R05.1 cough, feverReason for VisitAcute right hip pain Hematuria Acute thoracic back pain Bone marrow hypocellularity Cancer-related pain Chemotherapy-induced neutropenia Chronic copper deficiency Degenerative cervical spinal stenosis Diabetes mellitus Encounter for antineoplastic immunotherapy Encounter for chemotherapy management Encounter for coordination of complex care Fibromyalgia History of 2019 novel coronavirus disease (COVID-19) 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 Iron deficiency Liver cirrhosis secondary to KAPADIA (nonalcoholic steatohepatitis) Multiple myeloma Neutropenia, unspecified Obesity 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 Frontal sinusitis Chief Complaint R05.1 cough, fever R05.1 R06.02 U07.1 Smoldering Myeloma at time of oncology follow upReason for VisitAcute right hip pain Hematuria Acute thoracic back pain Bone marrow hypocellularity Cancer-related pain Chemotherapy-induced neutropenia Chronic copper deficiency Degenerative cervical spinal stenosis Diabetes mellitus Encounter for antineoplastic immunotherapy Encounter for chemotherapy management Encounter for coordination of complex care Fibromyalgia History of 2018 novel coronavirus disease (COVID-19) 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 Iron deficiency Liver cirrhosis secondary to KAPADIA (nonalcoholic steatohepatitis) Multiple myeloma Neutropenia, unspecified Obesity 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 Frontal sinusitis Multiple myeloma Cough Nausea Cancer-related pain Multiple myeloma Chief Complaint R05.1 cough, fever R05.1 R06.02 U07.1 at time of oncology follow up Smoldering MyelomaReason for VisitMultiple myeloma Cough Nausea Cancer-related pain Multiple myeloma Acute right hip pain Hematuria Acute thoracic back pain Bone marrow hypocellularity Cancer-related pain Chemotherapy-induced neutropenia Chronic copper deficiency Degenerative cervical spinal stenosis Diabetes mellitus Encounter for antineoplastic immunotherapy Encounter for chemotherapy management Encounter for coordination of complex care Fibromyalgia History of 2019 novel coronavirus disease (COVID-19) 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 Iron deficiency Liver cirrhosis secondary to KAPADIA (nonalcoholic steatohepatitis) Multiple myeloma Neutropenia, unspecified Obesity 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 Frontal sinusitis Chief Complaint cough, fever R05.1 R06.02 U07.1 at time of oncology follow up Smoldering Myeloma c90.00Reason for VisitRefractory chronic cough Bone marrow hypocellularity Cancer-related pain Chronic copper deficiency Encounter for coordination of complex care 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 Liver cirrhosis secondary to KAPADIA (nonalcoholic steatohepatitis) Multiple myeloma 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 Cough Nausea Cancer-related pain Multiple myeloma Acute right hip pain Hematuria Acute thoracic back pain Bone marrow hypocellularity Cancer-related pain Chemotherapy-induced neutropenia Chronic copper deficiency Degenerative cervical spinal stenosis Diabetes mellitus Encounter for antineoplastic immunotherapy Encounter for chemotherapy management Encounter for coordination of complex care Fibromyalgia History of 2018 novel coronavirus disease (COVID-19) 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 Iron deficiency Liver cirrhosis secondary to KAPADIA (nonalcoholic steatohepatitis) Multiple myeloma Neutropenia, unspecified Obesity 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 Frontal sinusitis Chief Complaint R05.1 R06.02 U07.1 at time of oncology follow up c90.00 Smoldering Myeloma Smoldering Myeloma Ref: Dr Marinelli Chronic CoughReason for VisitRefractory chronic cough Bone marrow hypocellularity Cancer-related pain Chronic copper deficiency Encounter for coordination of complex care 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 Liver cirrhosis secondary to KAPADIA (nonalcoholic steatohepatitis) Multiple myeloma 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 Cough Nausea Cancer-related pain Multiple myeloma Acute right hip pain Hematuria Acute thoracic back pain Bone marrow hypocellularity Cancer-related pain Chemotherapy-induced neutropenia Chronic copper deficiency Degenerative cervical spinal stenosis Diabetes mellitus Encounter for antineoplastic immunotherapy Encounter for chemotherapy management Encounter for coordination of complex care Fibromyalgia History of 2018 novel coronavirus disease (COVID-19) 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 Iron deficiency Liver cirrhosis secondary to KAPADIA (nonalcoholic steatohepatitis) Multiple myeloma Neutropenia, unspecified Obesity 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 Frontal sinusitis COPD (chronic obstructive pulmonary disease) 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 Chief Complaint R05.1 R06.02 U07.1 at time of oncology follow up c90.00 Smoldering Myeloma Smoldering Myeloma Ref: Dr Marinelli Chronic CoughReason for VisitRefractory chronic cough Bone marrow hypocellularity Cancer-related pain Chronic copper deficiency Encounter for coordination of complex care 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 Liver cirrhosis secondary to KAPADIA (nonalcoholic steatohepatitis) Multiple myeloma 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 Nausea Cancer-related pain Multiple myeloma Acute right hip pain Hematuria Acute thoracic back pain Bone marrow hypocellularity Cancer-related pain Chemotherapy-induced neutropenia Chronic copper deficiency Degenerative cervical spinal stenosis Encounter for antineoplastic immunotherapy Encounter for chemotherapy management Encounter for coordination of complex care Fibromyalgia History of 2018 novel coronavirus disease (COVID-19) 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 Iron deficiency Liver cirrhosis secondary to KAPADIA (nonalcoholic steatohepatitis) Multiple myeloma Neutropenia, unspecified Obesity 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 Frontal sinusitis BMI 30.0-30.9,adult COPD (chronic obstructive pulmonary disease) DM2 (diabetes mellitus, type 2) History of COVID-19 History of tobacco abuse Maxillary sinusitis, chronic 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 Obesity Nausea Cancer-related pain Multiple myeloma Chief Complaint at time of oncology follow up c90.00 Smoldering Myeloma Smoldering Myeloma Ref: Dr Marinelli, Chronic Cough painReason for VisitRefractory chronic cough Bone marrow hypocellularity Cancer-related pain Chronic copper deficiency Encounter for coordination of complex care 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 Liver cirrhosis secondary to KAPADIA (nonalcoholic steatohepatitis) Multiple myeloma 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 Nausea Cancer-related pain Multiple myeloma Acute right hip pain Hematuria Acute thoracic back pain Bone marrow hypocellularity Cancer-related pain Chemotherapy-induced neutropenia Chronic copper deficiency Degenerative cervical spinal stenosis Encounter for antineoplastic immunotherapy Encounter for chemotherapy management Encounter for coordination of complex care Fibromyalgia History of 2019 novel coronavirus disease (COVID-19) 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 Iron deficiency Liver cirrhosis secondary to KAPADIA (nonalcoholic steatohepatitis) Multiple myeloma Neutropenia, unspecified Obesity 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 Frontal sinusitis BMI 30.0-30.9,adult COPD (chronic obstructive pulmonary disease) DM2 (diabetes mellitus, type 2) History of COVID-19 History of tobacco abuse Maxillary sinusitis, chronic 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 Obesity Nausea Refractory chronic cough Cancer-related pain Multiple myeloma Acute alteration in mental status COPD (chronic obstructive pulmonary disease) DM2 (diabetes mellitus, type 2) GERD (gastroesophageal reflux disease) Chemotherapy-induced neutropenia Fibromyalgia 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 Liver cirrhosis secondary to KAPADIA (nonalcoholic steatohepatitis) Chief Complaint at time of oncology follow up c90.00 Smoldering Myeloma Smoldering Myeloma Ref: Dr Marinelli, Chronic Cough pain pain pain pain pain painReason for VisitRefractory chronic cough Bone marrow hypocellularity Cancer-related pain Chronic copper deficiency Encounter for coordination of complex care 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 Liver cirrhosis secondary to KAPADIA (nonalcoholic steatohepatitis) Multiple myeloma 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 Nausea Cancer-related pain Multiple myeloma Acute right hip pain Hematuria Acute thoracic back pain Bone marrow hypocellularity Cancer-related pain Chemotherapy-induced neutropenia Chronic copper deficiency Degenerative cervical spinal stenosis Encounter for antineoplastic immunotherapy Encounter for chemotherapy management Encounter for coordination of complex care Fibromyalgia History of 2019 novel coronavirus disease (COVID-19) 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 Iron deficiency Liver cirrhosis secondary to KAPADIA (nonalcoholic steatohepatitis) Multiple myeloma Neutropenia, unspecified Obesity 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 Frontal sinusitis BMI 30.0-30.9,adult COPD (chronic obstructive pulmonary disease) DM2 (diabetes mellitus, type 2) History of COVID-19 History of tobacco abuse Maxillary sinusitis, chronic 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 Obesity Nausea Refractory chronic cough Cancer-related pain Multiple myeloma Acute alteration in mental status Acute metabolic encephalopathy Bacteremia COPD (chronic obstructive pulmonary disease) DM2 (diabetes mellitus, type 2) GERD (gastroesophageal reflux disease) Immunosuppression Paroxysmal atrial fibrillation Rhinovirus infection Septic shock Spontaneous bacterial peritonitis Chemotherapy-induced neutropenia Fibromyalgia 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 Liver cirrhosis secondary to KAPADIA (nonalcoholic steatohepatitis) Chief Complaint Ref: Dr Marinelli, Chron ic Cough pain pain pain pain pain pain follow up inpt stay/cirrhosisReason for VisitBMI 30.0-30.9,adult COPD (chronic obstructive pulmonary disease) DM2 (diabetes mellitus, type 2) History of COVID-19 History of tobacco abuse Maxillary sinusitis, chronic Obesity Nausea Refractory chronic cough Cancer-related pain Multiple myeloma Acute metabolic encephalopathy Bacteremia COPD (chronic obstructive pulmonary disease) DM2 (diabetes mellitus, type 2) GERD (gastroesophageal reflux disease) Immunosuppression Paroxysmal atrial fibrillation Rhinovirus infection Septic shock Spontaneous bacterial peritonitis Chemotherapy-induced neutropenia Liver cirrhosis secondary to AKPADIA (nonalcoholic steatohepatitis) Hemorrhoids Liver cirrhosis secondary to KAPADIA (nonalcoholic steatohepatitis) Chief Complaint pain pain pain pain pain pain follow up inpt stay/cirrhosis 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Reason for VisitAcute metabolic encephalopathy Bacteremia COPD (chronic obstructive pulmonary disease) DM2 (diabetes mellitus, type 2) GERD (gastroesophageal reflux disease) Immunosuppression Paroxysmal atrial fibrillation Rhinovirus infection Septic shock Spontaneous bacterial peritonitis Chemotherapy-induced neutropenia Liver cirrhosis secondary to KAPADIA (nonalcoholic steatohepatitis) Hemorrhoids Liver cirrhosis secondary to KAPADIA (nonalcoholic steatohepatitis) Abnormal CXR (chest x-ray) COPD (chronic obstructive pulmonary disease) DM2 (diabetes mellitus, type 2) History of COVID-19 History of tobacco abuse Maxillary sinusitis, chronic Chief Complaint pain pain pain pain pain pain follow up inpt stay/cirrhosis 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 Patient here for a 3 month f/u in officeReason for VisitAcute metabolic encephalopathy Bacteremia COPD (chronic obstructive pulmonary disease) DM2 (diabetes mellitus, type 2) GERD (gastroesophageal reflux disease) Immunosuppression Paroxysmal atrial fibrillation Rhinovirus infection Septic shock Spontaneous bacterial peritonitis Chemotherapy-induced neutropenia Liver cirrhosis secondary to KAPADIA (nonalcoholic steatohepatitis) Hemorrhoids Liver cirrhosis secondary to KAPADIA (nonalcoholic steatohepatitis) Abnormal CXR (chest x-ray) COPD (chronic obstructive pulmonary disease) DM2 (diabetes mellitus, type 2) History of COVID-19 History of tobacco abuse Maxillary sinusitis, chronic Multiple myeloma Cancer-related pain Chief Complaint pain pain pain pain pain pain follow up inpt stay/cirrhosis 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 Patient here for a 3 month f/u in office Smoldering Myeloma F/U after Pulmonary ConsultReason for VisitAcute metabolic encephalopathy Bacteremia COPD (chronic obstructive pulmonary disease) DM2 (diabetes mellitus, type 2) GERD (gastroesophageal reflux disease) Immunosuppression Paroxysmal atrial fibrillation Rhinovirus infection Septic shock Spontaneous bacterial peritonitis Chemotherapy-induced neutropenia Liver cirrhosis secondary to KAPADIA (nonalcoholic steatohepatitis) Hemorrhoids Liver cirrhosis secondary to KAPADIA (nonalcoholic steatohepatitis) Abnormal CXR (chest x-ray) COPD (chronic obstructive pulmonary disease) DM2 (diabetes mellitus, type 2) History of COVID-19 History of tobacco abuse Maxillary sinusitis, chronic Multiple myeloma Cancer-related pain Acute right hip pain Hematuria Acute thoracic back pain Bone marrow hypocellularity Cancer-related pain Chemotherapy-induced neutropenia Chronic copper deficiency Degenerative cervical spinal stenosis Encounter for antineoplastic immunotherapy Encounter for chemotherapy management Encounter for coordination of complex care History of 2018 novel coronavirus disease (COVID-19) Iron deficiency Liver cirrhosis secondary to KAPADIA (nonalcoholic steatohepatitis) Multiple myeloma Neutropenia, unspecified Obesity 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 Frontal sinusitis Refractory chronic cough Bone marrow hypocellularity Cancer-related pain Chronic copper deficiency Encounter for coordination of complex care Liver cirrhosis secondary to KAPADIA (nonalcoholic steatohepatitis) Multiple myeloma 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 Chief Complaint pain pain pain pain pain pain follow up inpt stay/cirrhosis 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 Patient here for a 3 month f/u in office Smoldering Myeloma F/U after Pulmonary Consult R93.89Reason for VisitAcute metabolic encephalopathy Bacteremia COPD (chronic obstructive pulmonary disease) DM2 (diabetes mellitus, type 2) GERD (gastroesophageal reflux disease) Immunosuppression Paroxysmal atrial fibrillation Rhinovirus infection Septic shock Spontaneous bacterial peritonitis Chemotherapy-induced neutropenia Liver cirrhosis secondary to KAPADIA (nonalcoholic steatohepatitis) Hemorrhoids Liver cirrhosis secondary to KAPADIA (nonalcoholic steatohepatitis) Abnormal CXR (chest x-ray) COPD (chronic obstructive pulmonary disease) DM2 (diabetes mellitus, type 2) History of COVID-19 History of tobacco abuse Maxillary sinusitis, chronic Multiple myeloma Cancer-related pain Acute right hip pain Hematuria Acute thoracic back pain Bone marrow hypocellularity Cancer-related pain Chemotherapy-induced neutropenia Chronic copper deficiency Degenerative cervical spinal stenosis Encounter for antineoplastic immunotherapy Encounter for chemotherapy management Encounter for coordination of complex care History of 2019 novel coronavirus disease (COVID-19) Iron deficiency Liver cirrhosis secondary to KAPADIA (nonalcoholic steatohepatitis) Multiple myeloma Neutropenia, unspecified Obesity 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 Frontal sinusitis Refractory chronic cough Bone marrow hypocellularity Cancer-related pain Chronic copper deficiency Encounter for coordination of complex care Liver cirrhosis secondary to KAPADIA (nonalcoholic steatohepatitis) Multiple myeloma 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 Chief Complaint follow up inpt stay/ cirrhosis 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 Patient here for a 3 month f/u in office Smoldering Myeloma F/U after Pulmonary Consult R93.89 J02.9Reason for VisitHemorrhoids Liver cirrhosis secondary to KAPADIA (nonalcoholic steatohepatitis) Abnormal CXR (chest x-ray) COPD (chronic obstructive pulmonary disease) DM2 (diabetes mellitus, type 2) History of COVID-19 History of tobacco abuse Maxillary sinusitis, chronic Multiple myeloma Cancer-related pain Acute right hip pain Hematuria Acute thoracic back pain Bone marrow hypocellularity Cancer-related pain Chemotherapy-induced neutropenia Chronic copper deficiency Degenerative cervical spinal stenosis Encounter for antineoplastic immunotherapy Encounter for chemotherapy management Encounter for coordination of complex care History of 2019 novel coronavirus disease (COVID-19) Iron deficiency Liver cirrhosis secondary to KAPADIA (nonalcoholic steatohepatitis) Multiple myeloma Neutropenia, unspecified Obesity 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 Frontal sinusitis Refractory chronic cough Bone marrow hypocellularity Cancer-related pain Chronic copper deficiency Encounter for coordination of complex care Liver cirrhosis secondary to KAPADIA (nonalcoholic steatohepatitis) Multiple myeloma 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 Chief Complaint follow up inpt stay/ cirrhosis 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 Patient here for a 3 month f/u in office Smoldering Myeloma F/U after Pulmonary Consult R93.89 J02.9 Patient is here for a 2 month f/u in office I10 E11.69 Z20.1Reason for VisitHemorrhoids Liver cirrhosis secondary to KAPADIA (nonalcoholic steatohepatitis) Abnormal CXR (chest x-ray) COPD (chronic obstructive pulmonary disease) DM2 (diabetes mellitus, type 2) History of COVID-19 History of tobacco abuse Maxillary sinusitis, chronic Multiple myeloma Cancer-related pain Acute right hip pain Hematuria Acute thoracic back pain Bone marrow hypocellularity Cancer-related pain Chemotherapy-induced neutropenia Chronic copper deficiency Degenerative cervical spinal stenosis Encounter for antineoplastic immunotherapy Encounter for chemotherapy management Encounter for coordination of complex care History of 2019 novel coronavirus disease (COVID-19) Iron deficiency Liver cirrhosis secondary to KAPADIA (nonalcoholic steatohepatitis) Multiple myeloma Neutropenia, unspecified Obesity 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 Frontal sinusitis Refractory chronic cough Bone marrow hypocellularity Cancer-related pain Chronic copper deficiency Encounter for coordination of complex care Liver cirrhosis secondary to KAPADIA (nonalcoholic steatohepatitis) Multiple myeloma 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 Cancer-related pain Multiple myeloma Chief Complaint Admit Date 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 June 27, 2024 9: 59am Patient here for a 3 month f/u in office June 28, 2024 9:11am Smoldering Myeloma June 29, 2024 6: 48am F/U after Pulmonary Consult June 29, 2024 9:18am R93.89 June 29, 2024 10 :24am J02.9 August 08, 2024 1: 12pm Patient is here for a 2 month f/u in off ice August 26, 2024 11:19am I10 E11.69 Z20.1 August 26, 2024 1 2:10pm 3 month follow up September 14, 2024 9:39am Reason for Visit Admit Date Abnormal CXR (chest x-ray) June 27, 2024 9:59am COPD (chronic obstructive pulmonary dise ase) June 27, 2024 9:59am DM2 (diabetes mellitus, type 2) June 032023 9:59am History of COVID-19 June 27, 2024 9: 59am History of tobacco abuse June 27 9:59am Maxillary sinusitis, chronic June 9:59am 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 June 27, 2024 9:59am Multiple myeloma June 28, 2024 9: 11am Cancer-related pain June 28, 2024 9: 11am Acute right hip pain June 29, 2024 6 :48am Hematuria June 29, 2024 6: 48am Acute thoracic back pain June 29 6:48am Bone marrow hypocellularity June 29, 2024 6:48am Cancer-related pain June 29, 2024 6: 48am Chemotherapy-induced neutropenia June 29, 2024 6:48am Chronic copper deficiency June 29 024 6:48am Degenerative cervical spinal stenosis [facility] 2023 6:48am Encounter for antineoplastic immunothera py June 29, 2024 6:48am Encounter for chemotherapy management [facility] 2023 6:48am Encounter for coordination of complex ca re June 29, 2024 6:48am History of 2019 novel coronavirus diseas e (COVID-19) June 29, 2024 6:48am Iron deficiency June 29, 2024 6: 48am Liver cirrhosis secondary to KAPADIA (nonalcoholic steatohepatitis) June 29, 2024 6:48am Multiple myeloma June 29, 2024 6: 48am Neutropenia, unspecified June 29 6:48am Obesity June 29, 2024 6: 48am 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 [facility] 2023 6:48am Frontal sinusitis June 29, 2024 6: 48am Diabetes mellitus June 29, 2024 6: 48am Fibromyalgia June 29, 2024 6: 48am 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 June 29, 2024 6:48am Smoldering multiple myeloma (SMM) June 29, 2024 6:48am Refractory chronic cough June 29 9:18am Bone marrow hypocellularity June 29, 2024 9:18am Cancer-related pain June 29, 2024 9: 18am Chronic copper deficiency June 29 024 9:18am Encounter for coordination of complex ca re June 29, 2024 9:18am Liver cirrhosis secondary to KAPADIA (nonalcoholic steatohepatitis) June 29, 2024 9:18am Multiple myeloma June 29, 2024 9: 18am 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 [facility] 2023 9:18am 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 June 29, 2024 9:18am Cancer-related pain August 26, 2024 1 1:19am Multiple myeloma August 26, 2024 1 1:19am Liver cirrhosis secondary to KAPADIA (nonalcoholic steatohepatitis) September 14, 2024 9:39am Chief Complaint Admit Date 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 June 27, 2024 9: 59am Patient here for a 3 month f/u in office June 28, 2024 9:11am F/U after Pulmonary Consult June 29, 2024 9:18am R93.89 June 29, 2024 10 :24am J02.9 August 08, 2024 1: 12pm Patient is here for a 2 month f/u in off ice August 26, 2024 11:19am I10 E11.69 Z20.1 August 26, 2024 1 2:10pm 3 month follow up September 14, 2024 9:39am consent for tx here September 15, 2024 9:52am Smoldering Myeloma September 15, 2024 9:54am Reason for Visit Admit Date Abnormal CXR (chest x-ray) June 27, 2024 9:59am COPD (chronic obstructive pulmonary dise ase) June 27, 2024 9:59am DM2 (diabetes mellitus, type 2) June 032023 9:59am History of COVID-19 June 27, 2024 9: 59am History of tobacco abuse June 27 9:59am Maxillary sinusitis, chronic June 9:59am 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 June 27, 2024 9:59am Multiple myeloma June 28, 2024 9: 11am Cancer-related pain June 28, 2024 9: 11am Refractory chronic cough June 29 24 9:18am Bone marrow hypocellularity June 29, 2024 9:18am Cancer-related pain June 29, 2024 9: 18am Chronic copper deficiency June 29, 2 024 9:18am Encounter for coordination of complex ca re June 29, 2024 9:18am Liver cirrhosis secondary to KAPADIA (nonalcoholic steatohepatitis) June 29, 2024 9:18am Multiple myeloma June 29, 2024 9: 18am 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 [facility] 2023 9:18am 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 June 29, 2024 9:18am Cancer-related pain August 26, 2024 1 1:19am Multiple myeloma August 26, 2024 1 1:19am Liver cirrhosis secondary to KAPADIA (nonalcoholic steatohepatitis) September 14, 2024 9:39am Refractory chronic cough September 15, 2024 9:52am Bone marrow hypocellularity September 9:52am Cancer-related pain September 15, 2024 9:52am Chronic copper deficiency September 15, 2024 9:52am Encounter for coordination of complex ca re September 15, 2024 9:52am Liver cirrhosis secondary to KAPADIA (nonalcoholic steatohepatitis) September 15, 2024 9:52am Multiple myeloma September 15, 2024 9:52am 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 No vember 2023 9:52am 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 September 15, 2024 9:52am Acute right hip pain September 15, 2024 9:54am Hematuria September 15, 2024 9:54am Acute thoracic back pain September 15, 2024 9:54am Bone marrow hypocellularity September 9:54am Cancer-related pain September 15, 2024 9:54am Chemotherapy-induced neutropenia Novem r 2023 9:54am Chronic copper deficiency September 15, 2024 9:54am Degenerative cervical spinal stenosis No [email or web address] 9:54am Encounter for antineoplastic immunothera py September 15, 2024 9:54am Encounter for chemotherapy management No [email or web address] 9:54am Encounter for coordination of complex ca re September 15, 2024 9:54am History of 2019 novel coronavirus diseas e (COVID-19) September 15, 2024 9:54am Iron deficiency September 15, 2024 9:54am Liver cirrhosis secondary to KAPADIA (nonalcoholic steatohepatitis) September 15, 2024 9:54am Multiple myeloma September 15, 2024 9:54am Neutropenia, unspecified September 15, 2024 9:54am Obesity September 15, 2024 9:54am 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 No vember 2023 9:54am Frontal sinusitis September 15, 2024 9:54am Diabetes mellitus September 15, 2024 9:54am Fibromyalgia September 15, 2024 9:54am 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 September 15, 2024 9:54am Smoldering multiple myeloma (SMM) Novemb er 2023 9:54am Chief Complaint Admit Date 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 June 27, 2024 9: 59am Patient here for a 3 month f/u in office June 28, 2024 9:11am F/U after Pulmonary Consult June 29, 2024 9:18am R93.89 June 29, 2024 10 :24am J02.9 August 08, 2024 1: 12pm Patient is here for a 2 month f/u in off ice August 26, 2024 11:19am I10 E11.69 Z20.1 August 26, 2024 1 2:10pm 3 month follow up September 14, 2024 9:39am consent for tx here September 15, 2024 9:52am Smoldering Myeloma September 15, 2024 9:54am g89.3 k75.81 k74.60 September 15, 2024 10:42am Reason for Visit Admit Date Abnormal CXR (chest x-ray) June 27, 2024 9:59am COPD (chronic obstructive pulmonary dise ase) June 27, 2024 9:59am DM2 (diabetes mellitus, type 2) June 032023 9:59am History of COVID-19 June 27, 2024 9: 59am History of tobacco abuse June 27 9:59am Maxillary sinusitis, chronic June 9:59am 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 June 27, 2024 9:59am Multiple myeloma June 28, 2024 9: 11am Cancer-related pain June 28, 2024 9: 11am Refractory chronic cough June 29 9:18am Bone marrow hypocellularity June 29, 2024 9:18am Cancer-related pain June 29, 2024 9: 18am Chronic copper deficiency June 29, 2 024 9:18am Encounter for coordination of complex ca re June 29, 2024 9:18am Liver cirrhosis secondary to KAPADIA (nonalcoholic steatohepatitis) June 29, 2024 9:18am Multiple myeloma June 29, 2024 9: 18am 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 [facility] 2023 9:18am 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 June 29, 2024 9:18am Cancer-related pain August 26, 2024 1 1:19am Multiple myeloma August 26, 2024 1 1:19am Liver cirrhosis secondary to KAPADIA (nonalcoholic steatohepatitis) September 14, 2024 9:39am Refractory chronic cough September 15, 2024 9:52am Bone marrow hypocellularity September 9:52am Cancer-related pain September 15, 2024 9:52am Chronic copper deficiency September 15, 2024 9:52am Encounter for antineoplastic immunothera py September 15, 2024 9:52am Encounter for coordination of complex ca re September 15, 2024 9:52am Liver cirrhosis secondary to KAPADIA (nonalcoholic steatohepatitis) September 15, 2024 9:52am Multiple myeloma September 15, 2024 9:52am 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 No vember 2023 9:52am 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 September 15, 2024 9:52am Acute right hip pain September 15, 2024 9:54am Hematuria September 15, 2024 9:54am Acute thoracic back pain September 15, 2024 9:54am Bone marrow hypocellularity September 9:54am Cancer-related pain September 15, 2024 9:54am Chemotherapy-induced neutropenia Novembe r 2023 9:54am Chronic copper deficiency September 15, 2024 9:54am Degenerative cervical spinal stenosis No [email or web address] 9:54am Encounter for antineoplastic immunothera py September 15, 2024 9:54am Encounter for chemotherapy management No [email or web address] 9:54am Encounter for coordination of complex ca re September 15, 2024 9:54am History of 2019 novel coronavirus diseas e (COVID-19) September 15, 2024 9:54am Iron deficiency September 15, 2024 9:54am Liver cirrhosis secondary to KAPADIA (nonalcoholic steatohepatitis) September 15, 2024 9:54am Multiple myeloma September 15, 2024 9:54am Neutropenia, unspecified September 15, 2024 9:54am Obesity September 15, 2024 9:54am 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 No vember 2023 9:54am Frontal sinusitis September 15, 2024 9:54am Diabetes mellitus September 15, 2024 9:54am Fibromyalgia September 15, 2024 9:54am 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 September 15, 2024 9:54am Smoldering multiple myeloma (SMM) Novemb er 2023 9:54am Chief Complaint Admit Date 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 June 27, 2024 9: 59am Patient here for a 3 month f/u in office June 28, 2024 9:11am F/U after Pulmonary Consult June 29, 2024 9:18am R93.89 June 29, 2024 10 :24am J02.9 August 08, 2024 1: 12pm Patient is here for a 2 month f/u in off ice August 26, 2024 11:19am I10 E11.69 Z20.1 August 26, 2024 1 2:10pm 3 month follow up September 14, 2024 9:39am consent for tx here September 15, 2024 9:52am Smoldering Myeloma September 15, 2024 9:54am g89.3 k75.81 k74.60 September 15, 2024 10:42am K75.81 K74.60 September 19, 2024 9:15am Reason for Visit Admit Date Abnormal CXR (chest x-ray) June 27, 2024 9:59am COPD (chronic obstructive pulmonary dise ase) June 27, 2024 9:59am DM2 (diabetes mellitus, type 2) June 032023 9:59am History of COVID-19 June 27, 2024 9: 59am History of tobacco abuse June 27 9:59am Maxillary sinusitis, chronic June 9:59am 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 June 27, 2024 9:59am Multiple myeloma June 28, 2024 9: 11am Cancer-related pain June 28, 2024 9: 11am Refractory chronic cough George 28th, 20 24 9:18am Bone marrow hypocellularity June 29, 2024 9:18am Cancer-related pain June 29, 2024 9: 18am Chronic copper deficiency June 29, 024 9:18am Encounter for coordination of complex ca re June 29, 2024 9:18am 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 June 29, 2024 9:18am Liver cirrhosis secondary to KAPADIA (nonalcoholic steatohepatitis) June 29, 2024 9:18am Multiple myeloma June 29, 2024 9: 18am 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 [place] 2023 9:18am Cancer-related pain August 26, 2024 1 1:19am Multiple myeloma August 26, 2024 1 1:19am Liver cirrhosis secondary to KAPADIA (nonalcoholic steatohepatitis) September 14, 2024 9:39am Refractory chronic cough September 15, 2024 9:52am Bone marrow hypocellularity September 9:52am Cancer-related pain September 15, 2024 9:52am Chronic copper deficiency September 15, 2024 9:52am Encounter for antineoplastic immunothera py September 15, 2024 9:52am Encounter for coordination of complex ca re September 15, 2024 9:52am 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 September 15, 2024 9:52am Liver cirrhosis secondary to KAPADIA (nonalcoholic steatohepatitis) September 15, 2024 9:52am Multiple myeloma September 15, 2024 9:52am 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 No 2023 9:52am Acute right hip pain September 15, 2024 9:54am Hematuria September 15, 2024 9:54am Acute thoracic back pain September 15, 2024 9:54am Bone marrow hypocellularity September 9:54am Cancer-related pain September 15, 2024 9:54am Chemotherapy-induced neutropenia Novembe r 2023 9:54am Chronic copper deficiency September 15, 2024 9:54am Degenerative cervical spinal stenosis No [email or web address] 9:54am Encounter for antineoplastic immunothera py September 15, 2024 9:54am Encounter for chemotherapy management No [email or web address] 9:54am Encounter for coordination of complex ca re September 15, 2024 9:54am History of 2019 novel coronavirus diseas e (COVID-19) September 15, 2024 9:54am 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 September 15, 2024 9:54am Iron deficiency September 15, 2024 9:54am Liver cirrhosis secondary to KAPADIA (nonalcoholic steatohepatitis) September 15, 2024 9:54am Multiple myeloma September 15, 2024 9:54am Neutropenia, unspecified September 15, 2024 9:54am Obesity September 15, 2024 9:54am 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 No vember 2023 9:54am Frontal sinusitis September 15, 2024 9:54am Diabetes mellitus September 15, 2024 9:54am Fibromyalgia September 15, 2024 9:54am Smoldering multiple myeloma (SMM) Novem er 2023 9:54am Chief Complaint Admit Date Patient is here for a 2 month f/u in off ice August 26, 2024 11:19am I10 E11.69 Z20.1 August 26, 2024 1 2:10pm 3 month follow up September 14, 2024 9:39am consent for tx here September 15, 2024 9:52am g89.3 k75.81 k74.60 September 15, 2024 10:42am K75.81 K74.60 September 19, 2024 9:15am 1 wk f/u after tx October 05, 2024 2 :50pm R10.9 K76.9 K75.81 K74.60 October 24, 2024 9:40am Smoldering Myeloma November 16, 2024 9 :16am Follow Up November 16, 2024 1 0:10am Reason for Visit Admit Date Cancer-related pain August 26, 2024 1 1:19am Multiple myeloma August 26, 2024 1 1:19am Liver cirrhosis secondary to KAPADIA (nonalcoholic steatohepatitis) September 14, 2024 9:39am Refractory chronic cough September 15, 2024 9:52am Bone marrow hypocellularity September 9:52am Cancer-related pain September 15, 2024 9:52am Chronic copper deficiency September 15, 2024 9:52am Encounter for antineoplastic immunothera py September 15, 2024 9:52am Encounter for coordination of complex ca re September 15, 2024 9:52am 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 September 15, 2024 9:52am Liver cirrhosis secondary to KAPADIA (nonalcoholic steatohepatitis) September 15, 2024 9:52am Multiple myeloma September 15, 2024 9:52am 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 No vember 2023 9:52am Abnormal liver ultrasound October 05, 2024 2:50pm Refractory chronic cough October 05, 2 024 2:50pm Bone marrow hypocellularity October 2:50pm Cancer-related pain October 05, 2024 2 :50pm Encounter for antineoplastic immunothera py October 05, 2024 2:50pm Encounter for coordination of complex ca re October 05, 2024 2:50pm 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 October 05, 2024 2:50pm Liver cirrhosis secondary to KAPADIA (nonalcoholic steatohepatitis) October 05, 2024 2:50pm Multiple myeloma October 05, 2024 2 :50pm 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 De cember 2023 2:50pm Chronic pain syndrome October 21 10:23am Multiple myeloma October 21, 2024 10:23am Acute right hip pain November 16, 2024 9:16am Hematuria November 16, 2024 9 :16am Acute thoracic back pain November 16, 025 9:16am Bone marrow hypocellularity November 9:16am Cancer-related pain November 16, 2024 9 :16am Chemotherapy-induced neutropenia November 16, 2024 9:16am Chronic copper deficiency November 16, 2024 9:16am Degenerative cervical spinal stenosis [facility] 2024 9:16am Encounter for antineoplastic immunothera py November 16, 2024 9:16am Encounter for chemotherapy management [facility] 2024 9:16am Encounter for coordination of complex ca re November 16, 2024 9:16am History of 2019 novel coronavirus diseas e (COVID-19) November 16, 2024 9:16am 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 November 16, 2024 9:16am Iron deficiency November 16, 2024 9 :16am Liver cirrhosis secondary to KAPADIA (nonalcoholic steatohepatitis) November 16, 2024 9:16am Multiple myeloma November 16, 2024 9 :16am Neutropenia, unspecified November 16 025 9:16am Obesity November 16, 2024 9 :16am 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 [facility] 2024 9:16am Frontal sinusitis November 16, 2024 9 :16am Diabetes mellitus November 16, 2024 9 :16am Fibromyalgia November 16, 2024 9 :16am Smoldering multiple myeloma (SMM) Januar y 2024 9:16am Abnormal liver ultrasound November 16, 2024 10:10am Refractory chronic cough November 16, 025 10:10am Bone marrow hypocellularity November 10:10am Cancer-related pain November 16, 2024 1 0:10am Encounter for antineoplastic immunothera py November 16, 2024 10:10am Encounter for coordination of complex ca re November 16, 2024 10:10am 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 November 16, 2024 10:10am Liver cirrhosis secondary to KAPADIA (nonalcoholic steatohepatitis) November 16, 2024 10:10am Multiple myeloma November 16, 2024 1 0:10am 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 [facility] 2024 10:10am Chief Complaint Admit Date 1 wk f/u after tx October 05, 2024 2 :50pm R10.9 K76.9 K75.81 K74.60 October 24, 2024 9:40am Follow Up November 16, 2024 1 0:10am Smoldering Myeloma December 08, 2024 1 :54pm abnormal ekg, sent by December 20, 2024 3:27pm Reason for Visit Admit Date Abnormal liver ultrasound October 05, 2024 2:50pm Refractory chronic cough October 05, 2 024 2:50pm Bone marrow hypocellularity October 2:50pm Cancer-related pain October 05, 2024 2 :50pm Encounter for antineoplastic immunothera py October 05, 2024 2:50pm Encounter for coordination of complex ca re October 05, 2024 2:50pm 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 October 05, 2024 2:50pm Liver cirrhosis secondary to KAPADIA (nonalcoholic steatohepatitis) October 05, 2024 2:50pm Multiple myeloma October 05, 2024 2 :50pm 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 De cember 2023 2:50pm Chronic pain syndrome October 21 10:23am Multiple myeloma October 21, 2024 10:23am Hemorrhoids, complicated November 16, 2 025 10:10am Hepatocellular carcinoma November 16, 2 025 10:10am Refractory chronic cough November 16, 2 025 10:10am Bone marrow hypocellularity November 10:10am Cancer-related pain November 16, 2024 1 0:10am Encounter for antineoplastic immunothera py November 16, 2024 10:10am Encounter for coordination of complex ca re November 16, 2024 10:10am 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 November 16, 2024 10:10am Liver cirrhosis secondary to KAPADIA (nonalcoholic steatohepatitis) November 16, 2024 10:10am Multiple myeloma November 16, 2024 1 0:10am 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 Ja nuary 2024 10:10am Acute right hip pain December 08, 2024 1:54pm Hematuria December 08, 2024 1 :54pm Acute thoracic back pain December 08 025 1:54pm Bone marrow hypocellularity December 1:54pm Cancer-related pain December 08, 2024 1 :54pm Chemotherapy-induced neutropenia 2024 1:54pm Chronic copper deficiency December 08, 2024 1:54pm Degenerative cervical spinal stenosis [facility] 2024 1:54pm Encounter for antineoplastic immunothera py December 08, 2024 1:54pm Encounter for chemotherapy management [facility] 2024 1:54pm Encounter for coordination of complex ca re December 08, 2024 1:54pm History of 2019 novel coronavirus diseas e (COVID-19) December 08, 2024 1:54pm 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 December 08, 2024 1:54pm Iron deficiency December 08, 2024 1 :54pm Liver cirrhosis secondary to KAPADIA (nonalcoholic steatohepatitis) December 08, 2024 1:54pm Multiple myeloma December 08, 2024 1 :54pm Neutropenia, unspecified December 08 2 025 1:54pm Obesity December 08, 2024 1 :54pm 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 Fe bruary 2024 1:54pm Frontal sinusitis December 08, 2024 1 :54pm Diabetes mellitus December 08, 2024 1 :54pm Fibromyalgia December 08, 2024 1 :54pm Smoldering multiple myeloma (SMM) Februa 2024 1:54pm Chief Complaint Admit Date 1 wk f/u after tx October 05, 2024 2 :50pm R10.9 K76.9 K75.81 K74.60 October 24, 2024 9:40am Follow Up November 16, 2024 1 0:10am Smoldering Myeloma December 08, 2024 1 :54pm abnormal ekg, sent by December 20, 2024 3:27pm Patient here for a 2 month f/u December 23, 2024 1:25pm Chief Complaint Admit Date 1 wk f/u after tx October 05, 2024 2 :50pm R10.9 K76.9 K75.81 K74.60 October 24, 2024 9:40am Follow Up November 16, 2024 1 0:10am abnormal ekg, sent by December 20, 2024 3:27pm Patient here for a 2 month f/u December 23, 2024 1:25pm Smoldering Myeloma December 29, 2024 11:13am Reason for Visit Admit Date Abnormal liver ultrasound October 05, 2024 2:50pm Refractory chronic cough October 05, 2 024 2:50pm Bone marrow hypocellularity October 2:50pm Cancer-related pain October 05, 2024 2 :50pm Encounter for antineoplastic immunothera py October 05, 2024 2:50pm Encounter for coordination of complex ca re October 05, 2024 2:50pm 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 October 05, 2024 2:50pm Liver cirrhosis secondary to KAPADIA (nonalcoholic steatohepatitis) October 05, 2024 2:50pm Multiple myeloma October 05, 2024 2 :50pm 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 De cember 2023 2:50pm Chronic pain syndrome October 21 10:23am Multiple myeloma October 21, 2024 10:23am Hemorrhoids, complicated November 16, 2 025 10:10am Hepatocellular carcinoma November 16, 2 025 10:10am Refractory chronic cough November 16, 2 025 10:10am Bone marrow hypocellularity November 10:10am Cancer-related pain November 16, 2024 1 0:10am Encounter for antineoplastic immunothera py November 16, 2024 10:10am Encounter for coordination of complex ca re November 16, 2024 10:10am 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 November 16, 2024 10:10am Liver cirrhosis secondary to KAPADIA (nonalcoholic steatohepatitis) November 16, 2024 10:10am Multiple myeloma November 16, 2024 1 0:10am 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 Ja nuary 2024 10:10am Hemorrhoids, complicated December 29, 2024 10:04am Hepatocellular carcinoma December 29, 2024 10:04am Refractory chronic cough December 29, 2024 10:04am Bone marrow hypocellularity December 10:04am Cancer-related pain December 29, 2024 10:04am Encounter for antineoplastic immunothera py December 29, 2024 10:04am Encounter for coordination of complex ca re December 29, 2024 10:04am 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 December 29, 2024 10:04am Liver cirrhosis secondary to KAPADIA (nonalcoholic steatohepatitis) December 29, 2024 10:04am Multiple myeloma December 29, 2024 10:04am 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 Fe bruary 2024 10:04am Acute right hip pain December 29, 2024 11:13am Hematuria December 29, 2024 11:13am Acute thoracic back pain December 29, 2024 11:13am Bone marrow hypocellularity December 11:13am Cancer-related pain December 29, 2024 11:13am Chemotherapy-induced neutropenia Februar y 2024 11:13am Chronic copper deficiency December 29, 2024 11:13am Degenerative cervical spinal stenosis Fe bruary 2024 11:13am Encounter for antineoplastic immunothera py December 29, 2024 11:13am [facility] 11:13am Encounter for coordination of complex ca re December 29, 2024 11:13am History of 2019 novel coronavirus diseas e (COVID-19) December 29, 2024 11:13am 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 December 29, 2024 11:13am Iron deficiency December 29, 2024 11:13am Liver cirrhosis secondary to KAPADIA (nonalcoholic steatohepatitis) December 29, 2024 11:13am Multiple myeloma December 29, 2024 11:13am Neutropenia, unspecified December 29, 2024 11:13am Obesity December 29, 2024 11:13am 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 Fe bruary 2024 11:13am Frontal sinusitis December 29, 2024 11:13am Diabetes mellitus December 29, 2024 11:13am Fibromyalgia December 29, 2024 11:13am Smoldering multiple myeloma (SMM) Februa 2024 11:13am Chief Complaint Admit Date Follow Up November 16, 2024 1 0:10am abnormal ekg, sent by December 20, 2024 3:27pm Patient here for a 2 month f/u December 23, 2024 1:25pm Smoldering Myeloma January 31, 2025 7:44 am 5wk f/u February 03, 2025 10:3 2am Reason for Visit Admit Date Hemorrhoids, complicated November 16, 2 025 10:10am Hepatocellular carcinoma November 16 025 10:10am Refractory chronic cough November 16, 025 10:10am Bone marrow hypocellularity November 10:10am Cancer-related pain November 16, 2024 1 0:10am Encounter for antineoplastic immunothera py November 16, 2024 10:10am Encounter for coordination of complex ca re November 16, 2024 10:10am 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 November 16, 2024 10:10am Liver cirrhosis secondary to KAPADIA (nonalcoholic steatohepatitis) November 16, 2024 10:10am Multiple myeloma November 16, 2024 1 0:10am 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 Ja nuary 2024 10:10am Bilateral leg pain December 29, 2024 10:04am Hemorrhoids, complicated December 29, 2024 10:04am Hepatocellular carcinoma December 29, 2024 10:04am Hypomagnesemia December 29, 2024 10:04am Iron deficiency anemia December 29 10:04am Refractory chronic cough December 29, 2024 10:04am Bone marrow hypocellularity December 10:04am Cancer-related pain December 29, 2024 10:04am Encounter for antineoplastic immunothera py December 29, 2024 10:04am Encounter for coordination of complex ca re December 29, 2024 10:04am 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 December 29, 2024 10:04am Liver cirrhosis secondary to KAPADIA (nonalcoholic steatohepatitis) December 29, 2024 10:04am Multiple myeloma December 29, 2024 10:04am 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 Fe bruary 2024 10:04am Acute right hip pain January 31, 2025 7:4 4am Hematuria January 31, 2025 7:44 am Acute thoracic back pain January 31, 2025 7:44am Bone marrow hypocellularity January 31 7:44am Cancer-related pain January 31, 2025 7:44 am Chemotherapy-induced neutropenia January [id number] 7:44am Chronic copper deficiency January 31 7:44am Degenerative cervical spinal stenosis Ap ril 2024 7:44am Encounter for antineoplastic immunothera py January 31, 2025 7:44am Encounter for chemotherapy management Ap ril 2024 7:44am Encounter for coordination of complex ca re January 31, 2025 7:44am History of 2019 novel coronavirus diseas e (COVID-19) January 31, 2025 7:44am 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 January 31, 2025 7:44am Iron deficiency January 31, 2025 7:44 am Liver cirrhosis secondary to KAPADIA (nonalcoholic steatohepatitis) January 31, 2025 7:44am Multiple myeloma January 31, 2025 7:44 am Neutropenia, unspecified January 31, 2025 7:44am Obesity January 31, 2025 7:44 am 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 Ap ril 2024 7:44am Frontal sinusitis January 31, 2025 7:44 am Diabetes mellitus January 31, 2025 7:44 am Fibromyalgia January 31, 2025 7:44 am Smoldering multiple myeloma (SMM) January 31, 2025 7:44am Chief Complaint Admit Date Follow Up November 16, 2024 1 0:10am abnormal ekg, sent by December 20, 2024 3:27pm Patient here for a 2 month f/u December 23, 2024 1:25pm Smoldering Myeloma January 31, 2025 7:44 am 5wk f/u February 03, 2025 10:3 2am patient here for a f/u February 14, 2025 2:11pm Reason for Visit Admit Date Hemorrhoids, complicated November 16, 2 025 10:10am Hepatocellular carcinoma November 16, 025 10:10am Refractory chronic cough November 16, 025 10:10am Bone marrow hypocellularity November 10:10am Cancer-related pain November 16, 2024 1 0:10am Encounter for antineoplastic immunothera py November 16, 2024 10:10am Encounter for coordination of complex ca re November 16, 2024 10:10am 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 November 16, 2024 10:10am Liver cirrhosis secondary to KAPADIA (nonalcoholic steatohepatitis) November 16, 2024 10:10am Multiple myeloma November 16, 2024 1 0:10am 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 Ja nuary 2024 10:10am Bilateral leg pain December 29, 2024 10:04am Hemorrhoids, complicated December 29, 2024 10:04am Hepatocellular carcinoma December 29, 2024 10:04am Hypomagnesemia December 29, 2024 10:04am Iron deficiency anemia December 29 10:04am Refractory chronic cough December 29, 2024 10:04am Bone marrow hypocellularity December 10:04am Cancer-related pain December 29, 2024 10:04am Encounter for antineoplastic immunothera py December 29, 2024 10:04am Encounter for coordination of complex ca re December 29, 2024 10:04am 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 December 29, 2024 10:04am Liver cirrhosis secondary to KAPADIA (nonalcoholic steatohepatitis) December 29, 2024 10:04am Multiple myeloma December 29, 2024 10:04am 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 Fe bruary 2024 10:04am Acute right hip pain January 31, 2025 7:4 4am Hematuria January 31, 2025 7:44 am Acute thoracic back pain January 31, 2025 7:44am Bone marrow hypocellularity January 31 025 7:44am Cancer-related pain January 31, 2025 7:44 am Chemotherapy-induced neutropenia January [id number] 7:44am Chronic copper deficiency January 31 7:44am Degenerative cervical spinal stenosis Ap ril 2024 7:44am Encounter for antineoplastic immunothera py January 31, 2025 7:44am Encounter for chemotherapy management Ap ril 2024 7:44am Encounter for coordination of complex ca re January 31, 2025 7:44am History of 2019 novel coronavirus diseas e (COVID-19) January 31, 2025 7:44am 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 January 31, 2025 7:44am Iron deficiency January 31, 2025 7:44 am Liver cirrhosis secondary to KAPADIA (nonalcoholic steatohepatitis) January 31, 2025 7:44am Multiple myeloma January 31, 2025 7:44 am Neutropenia, unspecified January 31, 2025 7:44am Obesity January 31, 2025 7:44 am 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 Ap ril 2024 7:44am Frontal sinusitis January 31, 2025 7:44 am Diabetes mellitus January 31, 2025 7:44 am Fibromyalgia January 31, 2025 7:44 am Smoldering multiple myeloma (SMM) January 31, 2025 7:44am Bilateral leg pain February 03, 2025 10:3 2am Hemorrhoids, complicated February 03, 2025 10:32am Hepatocellular carcinoma February 03, 2025 10:32am Iron deficiency anemia February 03, 2025 1 0:32am Bone marrow hypocellularity February 03 025 10:32am Cancer-related pain February 03, 2025 10:3 2am Encounter for antineoplastic immunothera py February 03, 2025 10:32am Encounter for coordination of complex ca re February 03, 2025 10:32am 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 February 03, 2025 10:32am Liver cirrhosis secondary to KAPADIA (nonalcoholic steatohepatitis) February 03, 2025 10:32am Multiple myeloma February 03, 2025 10:3 2am 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 Ap 2024 10:32am Cancer associated pain February 14, 2025 2:11pm Hepatocellular carcinoma February 14 2:11pm Nausea February 14, 2025 2:1 1pm Chief Complaint Admit Date abnormal ekg, sent by December 20, 2024 3:27pm Patient here for a 2 month f/u December 23, 2024 1:25pm 5wk f/u February 03, 2025 10:3 2am patient here for a f/u February 14, 2025 2:11pm Follow Up March 16, 2025 9:18a m Smoldering Myeloma March 16, 2025 9:22a m Reason for Visit Admit Date Bilateral leg pain December 29, 2024 10:04am Hemorrhoids, complicated December 29, 2024 10:04am Hepatocellular carcinoma December 29, 2024 10:04am Hypomagnesemia December 29, 2024 10:04am Iron deficiency anemia December 29 10:04am Refractory chronic cough December 29, 2024 10:04am Bone marrow hypocellularity December 10:04am Cancer-related pain December 29, 2024 10:04am Encounter for antineoplastic immunothera py December 29, 2024 10:04am Encounter for coordination of complex ca re December 29, 2024 10:04am 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 December 29, 2024 10:04am Liver cirrhosis secondary to KAPADIA (nonalcoholic steatohepatitis) December 29, 2024 10:04am Multiple myeloma December 29, 2024 10:04am 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 Fe bruary 2024 10:04am Bilateral leg pain February 03, 2025 10:3 2am Hemorrhoids, complicated February 03, 2025 10:32am Hepatocellular carcinoma February 03, 2025 10:32am Iron deficiency anemia February 03, 2025 1 0:32am Bone marrow hypocellularity February 03, 2 025 10:32am Cancer-related pain February 03, 2025 10:3 2am Encounter for antineoplastic immunothera py February 03, 2025 10:32am Encounter for coordination of complex ca re February 03, 2025 10:32am 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 February 03, 2025 10:32am Liver cirrhosis secondary to KAPADIA (nonalcoholic steatohepatitis) February 03, 2025 10:32am Multiple myeloma February 03, 2025 10:3 2am 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 Ap ril 2024 10:32am Cancer associated pain February 14, 2025 2:11pm Hepatocellular carcinoma February 14 2:11pm Nausea February 14, 2025 2:1 1pm Cancer associated pain March 16, 2025 7: 47am Multiple myeloma March 16, 2025 7:47a m Nausea March 16, 2025 7:47a m Bilateral leg pain March 16, 2025 9:18a m Hemorrhoids, complicated March 16, 2025 9:18am Hepatocellular carcinoma March 16, 2025 9:18am Iron deficiency anemia March 16, 2025 9: 18am Bone marrow hypocellularity March 16 9:18am Cancer-related pain March 16, 2025 9:18a m Encounter for antineoplastic immunothera py March 16, 2025 9:18am Encounter for coordination of complex ca re March 16, 2025 9:18am 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 March 16, 2025 9:18am Liver cirrhosis secondary to KAPADIA (nonalcoholic steatohepatitis) March 16, 2025 9:18am Multiple myeloma March 16, 2025 9:18a m 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 Ma y 2024 9:18am Acute right hip pain March 16, 2025 9:22 am Hematuria March 16, 2025 9:22a m Acute thoracic back pain March 16, 2025 9:22am Bone marrow hypocellularity March 16 9:22am Cancer-related pain March 16, 2025 9:22a m Chemotherapy-induced neutropenia March 9:22am Chronic copper deficiency March 16, 2025 9:22am Degenerative cervical spinal stenosis Ma y 2024 9:22am Encounter for antineoplastic immunothera py March 16, 2025 9:22am Encounter for chemotherapy management Ma y 2024 9:22am Encounter for coordination of complex ca re March 16, 2025 9:22am History of 2019 novel coronavirus diseas e (COVID-19) March 16, 2025 9:22am 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 March 16, 2025 9:22am Iron deficiency March 16, 2025 9:22a m Liver cirrhosis secondary to KAPADIA (nonalcoholic steatohepatitis) March 16, 2025 9:22am Multiple myeloma March 16, 2025 9:22a m Neutropenia, unspecified March 16, 2025 9:22am Obesity March 16, 2025 9:22a m 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 Ma y 2024 9:22am Frontal sinusitis March 16, 2025 9:22a m Diabetes mellitus March 16, 2025 9:22a m Fibromyalgia March 16, 2025 9:22a m Smoldering multiple myeloma (SMM) March 162024 9:22am Chief Complaint Admit Date Follow Up March 16, 2025 9:18a m Smoldering Myeloma May 17, 2025 9:46 am E11.9 I71.20 D72.810 C22.0/see order Ryan y 2024 10:24am Reason for Visit Admit Date Bilateral leg pain March 16, 2025 9:18a m Hemorrhoids, complicated March 16, 2025 9:18am Hepatocellular carcinoma March 16, 2025 9:18am Iron deficiency anemia March 16, 2025 9: 18am Bone marrow hypocellularity March 16 9:18am Cancer-related pain March 16, 2025 9:18a m Encounter for antineoplastic immunothera py March 16, 2025 9:18am Encounter for coordination of complex ca re March 16, 2025 9:18am 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 March 16, 2025 9:18am Liver cirrhosis secondary to KAPADIA (nonalcoholic steatohepatitis) March 16, 2025 9:18am Multiple myeloma March 16, 2025 9:18a m 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 Ma y 2024 9:18am Cancer associated pain April 20, 2025 8 :27am Hepatocellular carcinoma April 20, 2025 8:27am Multiple myeloma April 20, 2025 8:27 am Bilateral leg pain April 20, 2025 8:35 am Hemorrhoids, complicated April 20, 2025 8:35am Hepatocellular carcinoma April 20, 2025 8:35am Iron deficiency anemia April 20, 2025 8 :35am Bone marrow hypocellularity April 20, 025 8:35am Cancer-related pain April 20, 2025 8:35 am Encounter for antineoplastic immunothera py April 20, 2025 8:35am Encounter for coordination of complex ca re April 20, 2025 8:35am 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 April 20, 2025 8:35am Liver cirrhosis secondary to KAPADIA (nonalcoholic steatohepatitis) April 20, 2025 8:35am Multiple myeloma April 20, 2025 8:35 am 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 Ju ne 2024 8:35am Acute right hip pain May 17, 2025 9:4 6am Hematuria May 17, 2025 9:46 am Acute thoracic back pain May 17, 2025 9:46am Bone marrow hypocellularity May 17 9:46am Cancer-related pain May 17, 2025 9:46 am Chemotherapy-induced neutropenia May 172024 9:46am Chronic copper deficiency May 17 9:46am Degenerative cervical spinal stenosis Ju ly 2024 9:46am Encounter for antineoplastic immunothera py May 17, 2025 9:46am Encounter for chemotherapy management Ju ly 2024 9:46am Encounter for coordination of complex ca re May 17, 2025 9:46am History of 2019 novel coronavirus diseas e (COVID-19) May 17, 2025 9:46am 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 May 17, 2025 9:46am Iron deficiency May 17, 2025 9:46 am Liver cirrhosis secondary to KAPADIA (nonalcoholic steatohepatitis) May 17, 2025 9:46am Multiple myeloma May 17, 2025 9:46 am Neutropenia, unspecified May 17, 2025 9:46am Obesity May 17, 2025 9:46 am 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 Ju ly 2024 9:46am Frontal sinusitis May 17, 2025 9:46 am Diabetes mellitus May 17, 2025 9:46 am Fibromyalgia May 17, 2025 9:46 am Smoldering multiple myeloma (SMM) May 022024 9:46am Chief Complaint Admit Date Follow Up March 16, 2025 9:18a m E11.9 I71.20 D72.810 C22.0/see order Ryan y 2024 10:24am Smoldering Myeloma May 18, 2025 2:30 pm Reason for Visit Admit Date Bilateral leg pain March 16, 2025 9:18a m Hemorrhoids, complicated March 16, 2025 9:18am Hepatocellular carcinoma March 16, 2025 9:18am Iron deficiency anemia March 16, 2025 9: 18am Bone marrow hypocellularity March 16 9:18am Cancer-related pain March 16, 2025 9:18a m Encounter for antineoplastic immunothera py March 16, 2025 9:18am Encounter for coordination of complex ca re March 16, 2025 9:18am 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 March 16, 2025 9:18am Liver cirrhosis secondary to KAPADIA (nonalcoholic steatohepatitis) March 16, 2025 9:18am Multiple myeloma March 16, 2025 9:18a m 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 Ma 2024 9:18am Cancer associated pain April 20, 2025 8 :27am Hepatocellular carcinoma April 20, 2025 8:27am Multiple myeloma April 20, 2025 8:27 am Bilateral leg pain April 20, 2025 8:35 am Hemorrhoids, complicated April 20, 2025 8:35am Hepatocellular carcinoma April 20, 2025 8:35am Iron deficiency anemia April 20, 2025 8 :35am Bone marrow hypocellularity April 20 8:35am Cancer-related pain April 20, 2025 8:35 am Encounter for antineoplastic immunothera py April 20, 2025 8:35am Encounter for coordination of complex ca re April 20, 2025 8:35am 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 April 20, 2025 8:35am Liver cirrhosis secondary to KAPADIA (nonalcoholic steatohepatitis) April 20, 2025 8:35am Multiple myeloma April 20, 2025 8:35 am 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 Ju ne 2024 8:35am Cancer associated pain May 18, 2025 7 :54am Hepatocellular carcinoma May 18, 2025 7:54am Acute right hip pain May 18, 2025 2:3 0pm Hematuria May 18, 2025 2:30 pm Acute thoracic back pain May 18, 2025 2:30pm Bone marrow hypocellularity May 18, 025 2:30pm Cancer-related pain May 18, 2025 2:30 pm Chemotherapy-induced neutropenia May [id number] 2:30pm Chronic copper deficiency May 18 2:30pm Degenerative cervical spinal stenosis Ju ly 2024 2:30pm Encounter for antineoplastic immunothera py May 18, 2025 2:30pm Encounter for chemotherapy management Ju ly 2024 2:30pm Encounter for coordination of complex ca re May 18, 2025 2:30pm History of 2019 novel coronavirus diseas e (COVID-19) May 18, 2025 2:30pm 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 May 18, 2025 2:30pm Iron deficiency May 18, 2025 2:30 pm Liver cirrhosis secondary to KAPADIA (nonalcoholic steatohepatitis) May 18, 2025 2:30pm Multiple myeloma May 18, 2025 2:30 pm Neutropenia, unspecified May 18, 2025 2:30pm Obesity May 18, 2025 2:30 pm 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 Ju ly 2024 2:30pm Frontal sinusitis May 18, 2025 2:30 pm Diabetes mellitus May 18, 2025 2:30 pm Fibromyalgia May 18, 2025 2:30 pm Smoldering multiple myeloma (SMM) May [id number] 2:30pm Reason for Visit Admit Date Bilateral leg pain March 16, 2025 9:18a m Hemorrhoids, complicated March 16, 2025 9:18am Hepatocellular carcinoma March 16, 2025 9:18am Iron deficiency anemia March 16, 2025 9: 18am Bone marrow hypocellularity March 16 9:18am Cancer-related pain March 16, 2025 9:18a m Encounter for antineoplastic immunothera py March 16, 2025 9:18am Encounter for coordination of complex ca re March 16, 2025 9:18am 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 March 16, 2025 9:18am Liver cirrhosis secondary to KAPADIA (nonalcoholic steatohepatitis) March 16, 2025 9:18am Multiple myeloma March 16, 2025 9:18a m 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 Ma 2024 9:18am Cancer associated pain April 20, 2025 8 :27am Hepatocellular carcinoma April 20, 2025 8:27am Multiple myeloma April 20, 2025 8:27 am Bilateral leg pain April 20, 2025 8:35 am Hemorrhoids, complicated April 20, 2025 8:35am Hepatocellular carcinoma April 20, 2025 8:35am Iron deficiency anemia April 20, 2025 8 :35am Bone marrow hypocellularity April 20 025 8:35am Cancer-related pain April 20, 2025 8:35 am Encounter for antineoplastic immunothera py April 20, 2025 8:35am Encounter for coordination of complex ca re April 20, 2025 8:35am 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 April 20, 2025 8:35am Liver cirrhosis secondary to KPAADIA (nonalcoholic steatohepatitis) April 20, 2025 8:35am Multiple myeloma April 20, 2025 8:35 am 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 Steph ne 2024 8:35am Cancer associated pain May 18, 2025 7 :54am Hepatocellular carcinoma May 18, 2025 7:54am Multiple myeloma May 18, 2025 7:54 am Acute right hip pain May 18, 2025 2:3 0pm Hematuria May 18, 2025 2:30 pm Acute thoracic back pain May 18, 2025 2:30pm Bone marrow hypocellularity May 18 025 2:30pm Cancer-related pain May 18, 2025 2:30 pm Chemotherapy-induced neutropenia May 182024 2:30pm Chronic copper deficiency May 18 2:30pm Degenerative cervical spinal stenosis Ju ly 2024 2:30pm Encounter for antineoplastic immunothera py May 18, 2025 2:30pm Encounter for chemotherapy management Ju ly 2024 2:30pm Encounter for coordination of complex ca re May 18, 2025 2:30pm History of 2019 novel coronavirus diseas e (COVID-19) May 18, 2025 2:30pm 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 May 18, 2025 2:30pm Iron deficiency May 18, 2025 2:30 pm Liver cirrhosis secondary to KAPADIA (nonalcoholic steatohepatitis) May 18, 2025 2:30pm Multiple myeloma May 18, 2025 2:30 pm Neutropenia, unspecified May 18, 2025 2:30pm Obesity May 18, 2025 2:30 pm 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 Ju ly 2024 2:30pm Frontal sinusitis May 18, 2025 2:30 pm Diabetes mellitus May 18, 2025 2:30 pm Fibromyalgia May 18, 2025 2:30 pm Smoldering multiple myeloma (SMM) May 022024 2:30pm Chief Complaint Admit Date Follow Up March 16, 2025 9:18a m E11.9 I71.20 D72.810 C22.0/see order May 10:24am Smoldering Myeloma May 18, 2025 2:30 pm 6 month follow up May 29, 2025 1:58 pm Chief Complaint Admit Date Follow Up March 16, 2025 9:18a m E11.9 I71.20 D72.810 C22.0/see order May 10:24am 6 month follow up May 29, 2025 1:58 pm r31.9 May 30, 2025 8:32 am Smoldering Myeloma May 30, 2025 9:02 am Reason for Visit Admit Date Bilateral leg pain March 16, 2025 9:18a m Hemorrhoids, complicated March 16, 2025 9:18am Hepatocellular carcinoma March 16, 2025 9:18am Iron deficiency anemia March 16, 2025 9: 18am Bone marrow hypocellularity March 16 9:18am Cancer-related pain March 16, 2025 9:18a m Encounter for antineoplastic immunothera py March 16, 2025 9:18am Encounter for coordination of complex ca re March 16, 2025 9:18am 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 March 16, 2025 9:18am Liver cirrhosis secondary to KAPADIA (nonalcoholic steatohepatitis) March 16, 2025 9:18am Multiple myeloma March 16, 2025 9:18a m 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 Ma y 2024 9:18am Cancer associated pain April 20, 2025 8 :27am Hepatocellular carcinoma April 20, 2025 8:27am Multiple myeloma April 20, 2025 8:27 am Bilateral leg pain April 20, 2025 8:35 am Hemorrhoids, complicated April 20, 2025 8:35am Hepatocellular carcinoma April 20, 2025 8:35am Iron deficiency anemia April 20, 2025 8 :35am Bone marrow hypocellularity April 20, 2 025 8:35am Cancer-related pain April 20, 2025 8:35 am Encounter for antineoplastic immunothera py April 20, 2025 8:35am Encounter for coordination of complex ca re April 20, 2025 8:35am 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 April 20, 2025 8:35am Liver cirrhosis secondary to KAPADIA (nonalcoholic steatohepatitis) April 20, 2025 8:35am Multiple myeloma April 20, 2025 8:35 am 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 Ju ne 2024 8:35am Cancer associated pain May 18, 2025 7 :54am Hepatocellular carcinoma May 18, 2025 7:54am Multiple myeloma May 18, 2025 7:54 am Hepatocellular carcinoma May 29, 2025 1:58pm Liver cirrhosis secondary to KAPADIA (nonalcoholic steatohepatitis) May 29, 2025 1:58pm Acute right hip pain May 30, 2025 9:0 2am Hematuria May 30, 2025 9:02 am Acute thoracic back pain May 30, 2025 9:02am Bone marrow hypocellularity May 30, 2 025 9:02am Cancer-related pain May 30, 2025 9:02 am Chemotherapy-induced neutropenia May 302024 9:02am Chronic copper deficiency May 30 9:02am Degenerative cervical spinal stenosis Ju ly 2024 9:02am Encounter for antineoplastic immunothera py May 30, 2025 9:02am Encounter for chemotherapy management Ju ly 2024 9:02am Encounter for coordination of complex ca re May 30, 2025 9:02am History of 2019 novel coronavirus diseas e (COVID-19) May 30, 2025 9:02am 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 May 30, 2025 9:02am Iron deficiency May 30, 2025 9:02 am Liver cirrhosis secondary to KAPADIA (nonalcoholic steatohepatitis) May 30, 2025 9:02am Multiple myeloma May 30, 2025 9:02 am Neutropenia, unspecified May 30, 2025 9:02am Obesity May 30, 2025 9:02 am 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 Ju ly 2024 9:02am Frontal sinusitis May 30, 2025 9:02 am Diabetes mellitus May 30, 2025 9:02 am Fibromyalgia May 30, 2025 9:02 am Smoldering multiple myeloma (SMM) May 032024 9:02am Chief Complaint Admit Date E11.9 I71.20 D72.810 C22.0/see order Ryan y 2024 10:24am 6 month follow up May 29, 2025 1:58 pm r31.9 May 30, 2025 8:32 am Follow Up 2 Months June 15, 2025 9: 29am Smoldering Myeloma June 15, 2025 9: 58am Reason for Visit Admit Date Cancer associated pain April 20, 2025 8 :27am Hepatocellular carcinoma April 20, 2025 8:27am Multiple myeloma April 20, 2025 8:27 am Bilateral leg pain April 20, 2025 8:35 am Hemorrhoids, complicated April 20, 2025 8:35am Hepatocellular carcinoma April 20, 2025 8:35am Iron deficiency anemia April 20, 2025 8 :35am Bone marrow hypocellularity April 20 8:35am Cancer-related pain April 20, 2025 8:35 am Encounter for antineoplastic immunothera py April 20, 2025 8:35am Encounter for coordination of complex ca re April 20, 2025 8:35am 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 April 20, 2025 8:35am Liver cirrhosis secondary to KAPADIA (nonalcoholic steatohepatitis) April 20, 2025 8:35am Multiple myeloma April 20, 2025 8:35 am 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 Ju ne 2024 8:35am Cancer associated pain May 18, 2025 7 :54am Hepatocellular carcinoma May 18, 2025 7:54am Multiple myeloma May 18, 2025 7:54 am Hepatocellular carcinoma May 29, 2025 1:58pm Liver cirrhosis secondary to KAPADIA (nonalcoholic steatohepatitis) May 29, 2025 1:58pm Cancer associated pain June 15, 2025 8:12am Multiple myeloma June 15, 2025 8: [...] 15, 2025 9:29am Liver cirrhosis secondary to KAPADIA (nonalcoholic steatohepatitis) June 15, 2025 9:29am Multiple myeloma June 15, 2025 9: 29am 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 [facility] 2024 9:29am Acute right hip pain June 15, 2025 9 :58am Hematuria June 15, 2025 9: 58am Acute thoracic back pain June 15 9:58am Bone marrow hypocellularity June 15, 2025 9:58am Cancer-related pain June 15, 2025 9: 58am Chemotherapy-induced neutropenia June 15, 2025 9:58am Chronic copper deficiency June 15, 025 9:58am Degenerative cervical spinal stenosis [facility] 2024 9:58am Encounter for antineoplastic immunothera py June 15, 2025 9:58am Encounter for chemotherapy management [facility] 2024 9:58am Encounter for coordination of complex ca re June 15, 2025 9:58am History of 2019 novel coronavirus diseas e (COVID-19) June 15, 2025 9:58am 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 June 15, 2025 9:58am Iron deficiency June 15, 2025 9: 58am Liver cirrhosis secondary to KAPADIA (nonalcoholic steatohepatitis) June 15, 2025 9:58am Multiple myeloma June 15, 2025 9: 58am Neutropenia, unspecified June 15 9:58am Obesity June 15, 2025 9: 58am 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 Au yancy 2024 9:58am Frontal sinusitis June 15, 2025 9: 58am Diabetes mellitus June 15, 2025 9: 58am Fibromyalgia June 15, 2025 9: 58am Smoldering multiple myeloma (SMM) June 15, 2025 9:58am Chief Complaint Admit Date E11.9 I71.20 D72.810 C22.0/see order Ryan y 2024 10:24am 6 month follow up May 29, 2025 1:58 pm r31.9 May 30, 2025 8:32 am Follow Up 2 Months June 15, 2025 9: 29am Smoldering Myeloma June 15, 2025 10 :00am Reason for Visit Admit Date Cancer associated pain April 20, 2025 8 :27am Hepatocellular carcinoma April 20, 2025 8:27am Multiple myeloma April 20, 2025 8:27 am Bilateral leg pain April 20, 2025 8:35 am Hemorrhoids, complicated April 20, 2025 8:35am Hepatocellular carcinoma April 20, 2025 8:35am Iron deficiency anemia April 20, 2025 8 :35am Bone marrow hypocellularity April 20, 025 8:35am Cancer-related pain April 20, 2025 8:35 am Encounter for antineoplastic immunothera py April 20, 2025 8:35am Encounter for coordination of complex ca re April 20, 2025 8:35am 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 April 20, 2025 8:35am Liver cirrhosis secondary to KAPADIA (nonalcoholic steatohepatitis) April 20, 2025 8:35am Multiple myeloma April 20, 2025 8:35 am 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 Ju 2024 8:35am Cancer associated pain May 18, 2025 7 :54am Hepatocellular carcinoma May 18, 2025 7:54am Multiple myeloma May 18, 2025 7:54 am Hepatocellular carcinoma May 29, 2025 1:58pm Liver cirrhosis secondary to KAPADIA (nonalcoholic steatohepatitis) May 29, 2025 1:58pm Cancer associated pain June 15, 2025 8:12am Multiple myeloma June 15, 2025 8: [...] 15, 2025 9:29am Liver cirrhosis secondary to KAPADIA (nonalcoholic steatohepatitis) June 15, 2025 9:29am Multiple myeloma June 15, 2025 9: 29am 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 [facility] 2024 9:29am Acute right hip pain June 15, 2025 1 0:00am Hematuria June 15, 2025 10 :00am Acute thoracic back pain June 15 10:00am Bone marrow hypocellularity June 15, 2025 10:00am Cancer-related pain June 15, 2025 10 :00am Chemotherapy-induced neutropenia June 15, 2025 10:00am Chronic copper deficiency June 15, 025 10:00am Degenerative cervical spinal stenosis [facility] 2024 10:00am Encounter for antineoplastic immunothera py June 15, 2025 10:00am Encounter for chemotherapy management [facility] 2024 10:00am Encounter for coordination of complex ca re June 15, 2025 10:00am History of 2019 novel coronavirus diseas e (COVID-19) June 15, 2025 10:00am 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 June 15, 2025 10:00am Iron deficiency June 15, 2025 10 :00am Liver cirrhosis secondary to KAPADIA (nonalcoholic steatohepatitis) June 15, 2025 10:00am Multiple myeloma June 15, 2025 10 :00am Neutropenia, unspecified June 15 10:00am Obesity June 15, 2025 10 :00am 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 [facility] 2024 10:00am Frontal sinusitis June 15, 2025 10 :00am Diabetes mellitus June 15, 2025 10 :00am Fibromyalgia June 15, 2025 10 :00am Smoldering multiple myeloma (SMM) June 15, 2025 10:00am Chief Complaint Admit Date E11.9 I71.20 D72.810 C22.0/see order Ryan y 2024 10:24am 6 month follow up May 29, 2025 1:58 pm r31.9 May 30, 2025 8:32 am Follow Up 2 Months June 15, 2025 9: 29am Smoldering Myeloma July 19, 2025 9:14am rt side pain, vomiting July 19 025 11:40am Reason for Visit Admit Date Cancer associated pain April 20, 2025 8 :27am Hepatocellular carcinoma April 20, 2025 8:27am Multiple myeloma April 20, 2025 8:27 am Bilateral leg pain April 20, 2025 8:35 am Hemorrhoids, complicated April 20, 2025 8:35am Hepatocellular carcinoma April 20, 2025 8:35am Iron deficiency anemia April 20, 2025 8 :35am Bone marrow hypocellularity April 20 025 8:35am Cancer-related pain April 20, 2025 8:35 am Encounter for antineoplastic immunothera py April 20, 2025 8:35am Encounter for coordination of complex ca re April 20, 2025 8:35am 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 April 20, 2025 8:35am Liver cirrhosis secondary to KAPADIA (nonalcoholic steatohepatitis) April 20, 2025 8:35am Multiple myeloma April 20, 2025 8:35 am Thrombocytopenia due to sequestration Ju ne 2024 8:35am Cancer associated pain May 18, 2025 7 :54am Hepatocellular carcinoma May 18, 2025 7:54am Multiple myeloma May 18, 2025 7:54 am Hepatocellular carcinoma May 29, 2025 1:58pm Liver cirrhosis secondary to KAPADIA (nonalcoholic steatohepatitis) May 29, 2025 1:58pm Cancer [...] 15, 2025 9:29am Liver cirrhosis secondary to KAPADIA (nonalcoholic steatohepatitis) June 15, 2025 9:29am Multiple myeloma June 15, 2025 9: 29am 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 Au 2024 9:29am Acute right hip pain July 19 9:14am Hematuria July 19, 2025 9:14am Acute thoracic back pain July 19, 2025 9:14am Bone marrow hypocellularity July 192024 9:14am Cancer-related pain July 19, 2025 9:14am Chemotherapy-induced neutropenia Septemb er 2024 9:14am Chronic copper deficiency July 9:14am Degenerative cervical spinal stenosis Se ptember 2024 9:14am Encounter for antineoplastic immunothera py July 19, 2025 9:14am Encounter for chemotherapy management Se ptember 2024 9:14am Encounter for coordination of complex ca re July 19, 2025 9:14am History of 2019 novel coronavirus diseas e (COVID-19) July 19, 2025 9:14am 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 July 19, 2025 9:14am Iron deficiency July 19, 2025 9:14am Liver cirrhosis secondary to KAPADIA (nonalcoholic steatohepatitis) July 19, 2025 9:14am Multiple myeloma July 19, 2025 9:14am Neutropenia, unspecified July 19, 2025 9:14am Obesity July 19, 2025 9:14am 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 Se ptember 2024 9:14am Frontal sinusitis July 19, 2025 9:14am Diabetes mellitus July 19, 2025 9:14am Fibromyalgia July 19, 2025 9:14am Smoldering multiple myeloma (SMM) Septem sanjeev 2024 9:14am Cancer associated pain July 19, 2 025 9:55am Hepatocellular carcinoma July 19, 2025 9:55am Nausea July 19, 2025 9:55am Reason for Visit Admit Date Cancer associated pain May 18, 2025 7 :54am Hepatocellular carcinoma May 18, 2025 7:54am Multiple myeloma May 18, 2025 7:54 am Hepatocellular carcinoma May 29, 2025 1:58pm Liver cirrhosis secondary to KAPADIA (nonalcoholic steatohepatitis) May 29, 2025 1:58pm Cancer [...] 15, 2025 9:29am Liver cirrhosis secondary to KAPADIA (nonalcoholic steatohepatitis) June 15, 2025 9:29am Multiple myeloma June 15, 2025 9: 29am 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 Au yancy 2024 9:29am Acute right hip pain July 19 9:14am Hematuria July 19, 2025 9:14am Acute thoracic back pain July 19, 2025 9:14am Bone marrow hypocellularity July 192024 9:14am Cancer-related pain July 19, 2025 9:14am Chemotherapy-induced neutropenia Septemb er 2024 9:14am Chronic copper deficiency July 9:14am Degenerative cervical spinal stenosis Se ptember 2024 9:14am Encounter for antineoplastic immunothera py July 19, 2025 9:14am Encounter for chemotherapy management Se ptember 2024 9:14am Encounter for coordination of complex ca re July 19, 2025 9:14am History of 2019 novel coronavirus diseas e (COVID-19) July 19, 2025 9:14am 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 July 19, 2025 9:14am Iron deficiency July 19, 2025 9:14am Liver cirrhosis secondary to KAPADIA (nonalcoholic steatohepatitis) July 19, 2025 9:14am Multiple myeloma July 19, 2025 9:14am Neutropenia, unspecified July 19, 2025 9:14am Obesity July 19, 2025 9:14am 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 Se ptember 2024 9:14am Frontal sinusitis July 19, 2025 9:14am Diabetes mellitus July 19, 2025 9:14am Fibromyalgia July 19, 2025 9:14am Smoldering multiple myeloma (SMM) Septem sanjeev 2024 9:14am Cancer associated pain July 19 025 9:55am Hepatocellular carcinoma July 19, 2025 9:55am Nausea July 19, 2025 9:55am Chief Complaint Admit Date E11.9 I71.20 D72.810 C22.0/see order Ryan y 2024 10:24am 6 month follow up May 29, 2025 1:58 pm r31.9 May 30, 2025 8:32 am Follow Up 2 Months June 15, 2025 9: 29am rt side pain, vomiting July 19 11:40am 7 week f/u July 27, 2025 10:25am Smoldering Myeloma July 27, 2025 10:26am Reason for Visit Admit Date Cancer associated pain May 18, 2025 7 :54am Hepatocellular carcinoma May 18, 2025 7:54am Multiple myeloma May 18, 2025 7:54 am Hepatocellular carcinoma May 29, 2025 1:58pm Liver cirrhosis secondary to KAPADIA (nonalcoholic steatohepatitis) May 29, 2025 1:58pm Cancer [...] 15, 2025 9:29am Liver cirrhosis secondary to KAPADIA (nonalcoholic steatohepatitis) June 15, 2025 9:29am Multiple myeloma June 15, 2025 9: 29am 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 Au 2024 9:29am Cancer associated pain July 19, 025 9:55am Hepatocellular carcinoma July 19, 2025 9:55am Nausea July 19, 2025 9:55am Acute right hip pain July 27 10:26am Hematuria July 27, 2025 10:26am Acute thoracic back pain July 27, 2025 10:26am Bone marrow hypocellularity July 272024 10:26am Cancer-related pain July 27, 2025 10:26am Chemotherapy-induced neutropenia Septemb 2024 10:26am Chronic copper deficiency July 10:26am Degenerative cervical spinal stenosis Se pt2024 10:26am Encounter for antineoplastic immunothera py July 27, 2025 10:26am Encounter for chemotherapy management Se ptember 2024 10:26am Encounter for coordination of complex ca re July 27, 2025 10:26am History of 2019 novel coronavirus diseas e (COVID-19) July 27, 2025 10:26am 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 July 27, 2025 10:26am Iron deficiency July 27, 2025 10:26am Liver cirrhosis secondary to KAPADIA (nonalcoholic steatohepatitis) July 27, 2025 10:26am Multiple myeloma July 27, 2025 10:26am Neutropenia, unspecified July 27, 2025 10:26am Obesity July 27, 2025 10:26am 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 Se ptember 2024 10:26am Frontal sinusitis July 27, 2025 10:26am Diabetes mellitus July 27, 2025 10:26am Fibromyalgia July 27, 2025 10:26am Smoldering multiple myeloma (SMM) Septem 2024 10:26am Chief Complaint Admit Date E11.9 I71.20 D72.810 C22.0/see order Ryan y 2024 10:24am 6 month follow up May 29, 2025 1:58 pm r31.9 May 30, 2025 8:32 am Follow Up 2 Months June 15, 2025 9: 29am rt side pain, vomiting July 19, 025 11:40am 7 week f/u July 27, 2025 10:25am Smoldering Myeloma August 09, 2025 8: 17am Reason for Visit Admit Date Cancer associated pain May 18, 2025 7 :54am Hepatocellular carcinoma May 18, 2025 7:54am Multiple myeloma May 18, 2025 7:54 am Hepatocellular carcinoma May 29, 2025 1:58pm Liver cirrhosis secondary to KAPADIA (nonalcoholic steatohepatitis) May 29, 2025 1:58pm Cancer [...] 15, 2025 9:29am Liver cirrhosis secondary to KAPADIA (nonalcoholic steatohepatitis) June 15, 2025 9:29am Multiple myeloma June 15, 2025 9: 29am Thrombocytopenia due to sequestration Au yancy 2024 9:29am Cancer associated pain July 19 9:55am Hepatocellular carcinoma July 19, 2025 9:55am [...] 27, 2025 10:25am Liver cirrhosis secondary to KAPADIA (nonalcoholic steatohepatitis) July 27, 2025 10:25am Multiple myeloma July 27, 2025 10:25am 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 Se pt2024 10:25am Acute right hip pain August 09, 2025 8 :17am Hematuria August 09, 2025 8: 17am Acute thoracic back pain August 09 8:17am Bone marrow hypocellularity August 09, 2025 8:17am Cancer-related pain August 09, 2025 8: 17am Chemotherapy-induced neutropenia August 09, 2025 8:17am Chronic copper deficiency August 09 8:17am Degenerative cervical spinal stenosis Oc tob2024 8:17am Encounter for antineoplastic immunothera py August 09, 2025 8:17am Encounter for chemotherapy management Oc tob2024 8:17am Encounter for coordination of complex ca re August 09, 2025 8:17am History of 2019 novel coronavirus diseas e (COVID-19) August 09, 2025 8:17am 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 August 09, 2025 8:17am Iron deficiency August 09, 2025 8: 17am Liver cirrhosis secondary to KAPADIA (nonalcoholic steatohepatitis) August 09, 2025 8:17am Multiple myeloma August 09, 2025 8: 17am Neutropenia, unspecified August 09 8:17am Obesity August 09, 2025 8: 17am 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 Oc tober 2024 8:17am Frontal sinusitis August 09, 2025 8: 17am Diabetes mellitus August 09, 2025 8: 17am Fibromyalgia August 09, 2025 8: 17am Smoldering multiple myeloma (SMM) Octobe r 2024 8:17am Chief Complaint Admit Date 6 month follow up May 29, 2025 1:58 pm r31.9 May 30, 2025 8:32 am Follow Up 2 Months June 15, 2025 9: 29am rt side pain, vomiting July 19 025 11:40am 7 week f/u July 27, 2025 10:25am 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, 2025 7 :59am Reason for Visit Admit Date Hepatocellular carcinoma May 29, 2025 1:58pm Liver cirrhosis secondary to KAPADIA (nonalcoholic steatohepatitis) May 29, 2025 1:58pm Cancer [...] 15, 2025 9:29am Liver cirrhosis secondary to KAPADIA (nonalcoholic steatohepatitis) June 15, 2025 9:29am Multiple myeloma June 15, 2025 9: 29am 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 Au 2024 9:29am Cancer associated pain July 19 025 9:55am Hepatocellular carcinoma July 19, 2025 9:55am Nausea July 19, 2025 9:55am Hemorrhoids, complicated July 27, 2025 10:25am Hepatocellular carcinoma July 27, 2025 10:25am Iron deficiency anemia July 27 025 10:25am Bone marrow hypocellularity July 272024 10:25am Cancer-related pain July 27, 2025 10:25am Encounter for antineoplastic immunothera py July 27, 2025 10:25am Encounter for coordination of complex ca re July 27, 2025 10:25am 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 July 27, 2025 10:25am Liver cirrhosis secondary to KAPADIA (nonalcoholic steatohepatitis) July 27, 2025 10:25am Multiple myeloma July 27, 2025 10:25am 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 Se pt2024 10:25am Cancer associated pain August 16 7:42am Hepatocellular carcinoma August 16 7:42am Multiple myeloma August 16, 2025 7 :42am Nausea August 16, 2025 7 :42am Acute right hip pain August 16, 2025 7:59am Hematuria August 16, 2025 7 :59am Acute thoracic back pain August 16 7:59am Bone marrow hypocellularity August 7:59am Cancer-related pain August 16, 2025 7 :59am Chemotherapy-induced neutropenia August 16, 2025 7:59am Chronic copper deficiency August 16, 2025 7:59am Degenerative cervical spinal stenosis Oc tober 2024 7:59am Encounter for antineoplastic immunothera py August 16, 2025 7:59am Encounter for chemotherapy management Oc tober 2024 7:59am Encounter for coordination of complex ca re August 16, 2025 7:59am History of 2019 novel coronavirus diseas e (COVID-19) August 16, 2025 7:59am 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 August 16, 2025 7:59am Iron deficiency August 16, 2025 7 :59am Liver cirrhosis secondary to KAPADIA (nonalcoholic steatohepatitis) August 16, 2025 7:59am Multiple myeloma August 16, 2025 7 :59am Neutropenia, unspecified August 16 7:59am Obesity August 16, 2025 7 :59am 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 Oc tober 2024 7:59am Frontal sinusitis August 16, 2025 7 :59am Diabetes mellitus August 16, 2025 7 :59am Fibromyalgia August 16, 2025 7 :59am Smoldering multiple myeloma (SMM) Octobe r 2024 7:59am Reason for Referral SpecialtyDiagnoses / ProceduresReferred By ContactReferred To Contact Diagnoses Cough in adult Chronic cough Chronic obstructive pulmonary disease, unspecified COPD type (CMS/HCC) Essential hypertension (CMS/HCC) Paroxysmal atrial fibrillation (CMS/HCC) Hypersomnolence Procedures Polysomnography Letty Newsome NP [address] [place] [address] Referral IDStatusReasonStart DateExpiration DateVisits RequestedVisits [id number] / ProceduresReferred By ContactReferred To ContactGeneral Surgery Diagnoses Bleeding hemorrhoids Procedures PA OFFICE/OUTPATIENT [facility] HIGH MDM 60 MINUTES Letty Newsome NP [address] [place] [address] Referral IDStatusReasonStart DateExpiration DateVisits RequestedVisits [id number] Review Specialty Services Required /[id number] / ProceduresReferred By ContactReferred To ContactCardiology Diagnoses Multiple myeloma not having achieved remission (CMS/HCC) Procedures Vascular US lower extremity venous duplex right Lisette Perkins, [employer] [address] [place] [address] Referral IDStatusReasonStart DateExpiration DateVisits RequestedVisits [id number] Review Perform Procedure / Additional Source Comments INFORMATION SOURCE (unrecogn ized section and content) DATE CREATED AUTHOR 12/07/2019 [facility] DATE CREATED AUTHOR AUTHOR'S ORGANIZ ATION 03/17/2020 [employer] DATE CREATED AUTHOR AUTHOR'S ORGANIZ ATION 04/13/2020 [facility] DATE CREATED AUTHOR AUTHOR'S ORGANIZ ATION 08/02/2021 [facility] DATE CREATED AUTHOR AUTHOR'S ORGANIZ ATION 10/09/2021 [facility] DATE CREATED AUTHOR AUTHOR'S ORGANIZ ATION 08/08/2022 [facility] DATE CREATED AUTHOR AUTHOR'S ORGANIZ ATION 10/30/2022 [facility] DATE CREATED AUTHOR AUTHOR'S ORGANIZ ATION 08/07/2023 [facility] DATE CREATED AUTHOR AUTHOR'S ORGANIZ ATION 11/28/2024 [facility] DATE CREATED AUTHOR AUTHOR'S ORGANIZ ATION 06/15/2025 [facility] [facility] DATE CREATED AUTHOR AUTHOR'S ORGANIZ ATION 06/23/2025 [facility] DATE CREATED AUTHOR AUTHOR'S ORGANIZ ATION 07/07/2025 [facility] DATE CREATED AUTHOR AUTHOR'S ORGANIZ ATION 08/17/2025 [facility] DATE CREATED AUTHOR AUTHOR'S ORGANIZ ATION 08/19/2025 [facility] DATE CREATED AUTHOR AUTHOR'S ORGANIZ ATION 08/24/2025 [facility] EPIC Care Teams (unrecognized sec tion and content) Team Status: Active Member Role Status Dates Emely Pedersen DO Primary Care Provider Active Team Status: Inactive Member Role Status Dates Emely Pedersen DO Attending Provider Active S tart: May 17, 2025 End: May 17Jt [facility] Care ProviderActiveStart: May 17, 2025 End: May 17, 2025 Team Status: Active Member Role Status Dates Yinka Lopez MD Primary Care Provider Active S tart: May 18, 2025 Rene Carlson ProviderActiveStart: May 18, 2025 Zachary Carlson ProviderActiveStart: May 18, 2025 Team Status: Inactive Member Role Status Dates Yinka Lopez MD Primary Care Provider Active S tart: May 26, 2025 End: May 26, 2025Rene Carlson ProviderActiveStart: May 26, 2025 End: May 26, 2025 Team Status: Inactive Member Role Status Dates Yinka Lopez MD Primary Care Provider Active S tart: May 29, 2025 End: May 29duran Sanchez DOAttending ProviderActiveStart: May 29, 2025 End: May 29, 2025 Team Status: Inactive Member Role Status Dates Emely L Nuvia , DO Primary Care Provider Active Start: May 30, 2025 End: May 30duran Sanchez , DOAttending ProviderActiveStart: May 30, 2025 End: May 30, 2025 Team Status: Inactive Member Role Status Dates Katie Holder APRN Attending Provider Active Start: June 15, 2025 End: June 15, 2025Dahoward Pedersen , DOPrimary Care ProviderActiveStart: June 15, 2025 End: June 15, 2025 Team Status: Inactive Member Role Status Dates Fabiola Marinelli MD Attending Provider Active Start: June 15, 2025 End: June 15, 2025Dahoward Pedersen , DOPrimary Care ProviderActiveStart: June 15, 2025 End: June 15, 2025 Team Status: Active Member Role Status Dates Fabiola Marinelli MD Attending Provider Active Start: July 19, 2025 AMOR Rubalcavaeferring ProviderActiveStart: July 19, 2025 Emely Pedersen , DOPrimary Care ProviderActiveStart: July 19, 2025 Team Status: Inactive Member Role Status Dates Emely Pedersen DO Primary Care Provider Active Start: July 19, 2025 End: July 19, 2025Rene Carlson ProviderActiveStart: July 19, 2025 End: July 19, 2025 Team Status: Inactive Member Role Status Dates Emely Pedersen DO Primary Care Provider Active Start: July 19, 2025 End: July 19, 2025Frederick Ocamporkoko ProviderActiveStart: July 19, 2025 End: July 19, 2025 Team Status: Active Member Role Status Dates Yinka Lopez MD Primary Care Provider Active S tart: April 20, 2025 Rene Carlson ProviderActiveStart: April 20, 2025 Zachary Carlson ProviderActiveStart: April 20, 2025 Team Status: Inactive Member Role Status Dates Yinka Lopez MD Primary Care Provider Active S tart: April 20, 2025 End: April 20radha Marinelli MDAttstanley ProviderActiveStart: April 20, 2025 End: April 20, 2025 Team Status: Active Member Role Status Dates Katie Holder APRN Attending Provider Active Start: June 15, 2025 Judah Ferrara Care ProviderActiveStart: June 15, 2025 Team Status: Active Member Role Status Dates Fabiola Marinelli MD Attending Provider Active Start: June 15, 2025 Fabiola Marinelli , MDReferring ProviderActiveStart: June 15, 2025 ZORAIDA Ferrarariblairy Care ProviderActiveStart: June 15, 2025 Team Status: Active Member Role Status Dates Yinka Lopez MD Primary Care Provider Active Team Status: Inactive Member Role Status Dates Katie Holder APRN Attending Provider Active Start: October 22, 2023 End: October 22, 2023 Team Status: Active Member Role Status Dates Yinka Lopez MD Primary Care Provider Active S tart: October 29, 2023 Fabiola Marinelli , MDAttending Provider, Referring ProviderActiveStart: October 29, 2023 Team Status: Inactive Member Role Status Dates Yinka Lopez MD Primary Care Provider Active S tart: November 04, 2023 End: November 04my Deepali , GLASS CUT OFF SUPERVISOR-CAttending ProviderActiveStart: November 04, 2023 End: November 04, 2023 Team Status: Inactive Member Role Status Dates Yinka Lopez MD Primary Care Provider Active S tart: December 17, 2023 End: December 17Keven Amaro ProviderActiveStart: December 17, 2023 End: December 17, 2023 Team Status: Active Member Role Status Dates Yinka Lopez MD Primary Care Provider Active Fabiola Marinelli , MDAttending Provider, Referring ProviderActive Team Status: Inactive Member Role Status Dates Yinka Lopez MD Primary Care Provider Active Fabiola Yves , MDAttending ProviderActive Team Status: Inactive Member Role Status Dates Yinka Lopez MD Primary Care Provider Active Fabiola Warchol , GLASS CUT OFF SUPERVISOR-CAttending ProviderActive Team Status: Inactive Member Role Status Dates Yinka Lopez MD Primary Care Provider Active Barbara Lima APRN GLASS CUT OFF SUPERVISOR-CAttending ProviderActiveTeam MemberRelationship SpecialtyStart DateEnd Date Yinka Lopez MD [address] [place] [address] PCP - [facility]01/22/15 Barbara Lima [address] [place] [address] [facility]04/18/19Team MemberRelationshipSpecialtyStart DateEnd Date Yinka Lopez MD [address] [place] [address] PCP - [facility]01/22/15 Barbara Lima [address] [place] [address] [facility]erringD[facility]04/18/19 Team Status: Active Member Role Status Dates Yinka Lopez MD Primary Care Provider Active Stefani Escobar Jr, MDEmelupe ProviderActiveSherif Ravi , DOAdmit Provider, Attending ProviderActive Team Status: Inactive Member Role Status Dates Yinka Lopez MD Primary Care Provider Active Suleiman Terrell Jr ProviderActiveSherif Ravi , DOAdmit ProviderActiveVicente Linton , Attending ProviderActiveFabiola Marinelli MDOther ProviderActive Team Status: Inactive Member Role Status Dates Yinka Lopez MD Primary Care Provider Active Vonnie Ocampo ProviderActiveTeam MemberRelationshipSpecialtyStart DateEnd Date Yinka Lopez MD [address] [address] [place] [id number] PCP - General11/02/16 [place] [address] [place] [address] Consulting PhysicianHematology and Zljvkrgy38/2/23 Jessica Grove, networking specialist CoordinatorCase Emjuvglvay83/3/23 [place] [address] [place] [address] Consulting PhysicianHematology and Njicagym84/3/23Te MemberRelationship SpecialtyStart DateEnd Date Yinka Lopez MD [address] [place] [address] PCP - General11/02/16 [place] [address] [place] [address] Consulting PhysicianHematology and Alhiwvtz18/2/23 Jessica Grove RN Transitional Care CoordinatorCase Prmqwbotkf36/3/23 [place] [address] [place] [address] Consulting PhysicianHematology and Wtxddziw32/3/23Te MemberRelationship SpecialtyStart DateEnd Date Yinka Lopez MD [address] [place] [phone] PCP - General11/02/1709 [place] [address] [place] [address] Consulting PhysicianHematology and Ktzjnctq39/2/23 Jessica Grove RN Transitional Care CoordinatorCase Xmehvftwxs91/3/23 [place] [address] [place] [address] Consulting PhysicianHematology and Cgxgcbxk60/3/23Team MemberRelationship SpecialtyStart DateEnd Date Fabiola Marinelli MD [address] [place] [address] PCP - GeneralHematology and Alhwjhrr13/21/23 [place] PhD [address] [place] [address] Consulting PhysicianHematology and Meframcg00/2/23 Jessica Grove RN Transitional Care CoordinatorCase Gkwjmmjacs18/3/23 [place] [address] [place] [address] Consulting PhysicianHematology and Jngearns47/3/23 Team Status: Inactive Member Role Status Dates Yinka Lopez MD Primary Care Provider Active Vonnie Hewitt ProviderActiveTeam MemberRelationshipSpecialtyStart DateEnd Fabiola Marinelli MD [address] [place] [address] PCP - GeneralHematology and Zgsgmelb30/21/23 [place] PhD [address] [place] [address] Consulting PhysicianHematology and Kpndxcox43/2/23 Jessica Grove RN Transitional Care CoordinatorCase Epgfgeoxwm74/3/23 [place] [address] [place] [address] Consulting PhysicianHematology and Xtdtdyop99/3/23 Lisette Perkins, VISUAL MERCHANDISER-SALES DEVELOPMENT REPRESENTATIVE [address] [place] [address] Nurse PractitionerHematology and Amccqxxx40/13/23Team MemberRelationship SpecialtyStart DateEnd Date Fabiola Marinelli MD [address] [place] [address] PCP - GeneralHematology and Wnfutlpi64/21/23 [place] [address] [place] [address] Consulting PhysicianHematology and Vfkxqybe07/2/23 Jessica Grove, networking specialist CoordinatorCase Honwbgmhhl96/3/23 [place] [address] [place] [address] Consulting PhysicianHematology and Fdpyedqh03/3/23 Lisette Perkins, VISUAL MERCHANDISER-SALES DEVELOPMENT REPRESENTATIVE [address] [place] [address] Nurse PractitionerHematology and Zbxpiyve57/13/23Team MemberRelationship SpecialtyStart DateEnd Date Fabiola Marinelli MD [address] [place], [place] [id number] PCP - GeneralHematology and Rztskbfp84/21/23 [place] [address] [place] [address] Consulting PhysicianHematology and Puewsaxt76/2/23 Jessica Grove, networking specialist CoordinatorCase Cubjtepksz23/3/23 Lisette Perkins, VISUAL MERCHANDISER-SALES DEVELOPMENT REPRESENTATIVE [address] [place] [address] Nurse PractitionerHematology and Vvqtjrkg77/13/23 [place] PhD [address] [place] [address] Consulting PhysicianHematology and Oncology11/18/23Team MemberRelationship SpecialtyStart DateEnd Date Fabiola Marinelli MD [address] [place] [address] PCP - GeneralHematology and Irzbwenh47/21/23 [place] PhD [address] [place] [address] Consulting PhysicianHematology and Myksqprs43/2/23 Jessica Grove RN Transitional Care CoordinatorCase Yojgurxcul14/3/23 Lisette Perkins, VISUAL MERCHANDISER-SALES DEVELOPMENT REPRESENTATIVE [address] [place] [address] Nurse PractitionerHematology and Yykdemvn54/13/23 [place] PhD [address] [place] [address] Consulting PhysicianHematology and Oncology11/18/23Team MemberRelationship SpecialtyStart DateEnd Date Fabiola Marinelli MD [address] [place] [address] PCP - GeneralHematology and Vsnappso25/21/23 [place] PhD [address] [place] [address] Consulting PhysicianHematology and Rifmhucv79/2/23 Jessica Grove, networking specialist CoordinatorCase Umjyxfryer34/3/23 Lisette Perkins, VISUAL MERCHANDISER-SALES DEVELOPMENT REPRESENTATIVE [address] [id number] Nurse PractitionerHematology and Kgiakwue82/13/23 Theresa Romano MD PhD [address] [phone] Consulting PhysicianHematology and Oncology11/18/23Team MemberRelationship SpecialtyStart DateEnd Date Fabiola Marinelli MD [address] [place], [place] [phone] PCP - GeneralHematology and Zdivrmyn34/21/23 Supa Lindquist [place] PhD [address] [id number] Consulting PhysicianHematology and Xgvdcsmy92/2/23 Jessica Grove RN Transitional Care CoordinatorCase Ibotivmbxw24/3/23 Lisette Perkins, VISUAL MERCHANDISER-SALES DEVELOPMENT REPRESENTATIVE [address] [place], [place] [phone] Nurse PractitionerHematology and Aofwtgok42/13/23 [place] PhD [address] [place] [address] Consulting PhysicianHematology and Oncology11/18/23 Team Status: Inactive Member Role Status Dates Yinka Lopez MD Primary Care Provider Active S tart: December 31, 2023 End: Decemberradha Palumbo NP-CAttending ProviderActiveStart: December 31, 2023 End: December 31, 2023 Team Status: Active Member Role Status Dates Yinka Lopez MD Primary Care Provider Active S tart: January 21, 2024 Adina Rubalcava Provider, Referring ProviderActiveStart: January 21, 2024 Team Status: Active Member Role Status Dates Yinka Lopez MD Primary Care Provider Active S tart: January 21, 2024 Adina Rubalcava ProviderActiveStart: January 21, 2024 Team Status: Inactive Member Role Status Dates Yinka Lopez MD Primary Care Provider Active S tart: January 21, 2024 End: January 21, 2024Rene Carlson ProviderActiveStart: January 21, 2024 End: January 21, 2024 Team Status: Inactive Member Role Status Dates Ynika Lopez MD Primary Care Provider Active S tart: January 21, 2024 End: January 20Adina Tsai ProviderActiveStart: January 21, 2024 End: January 21, 2024Team MemberRelationshipSpecialtyStart DateEnd Date Fabiola Marinelli MD [address] [phone] PCP - GeneralHematology and Jyvgmlah03/21/23 Supa Lindquist [place] PhD [address] [address] [phone] Consulting PhysicianHematology and Ljlcomqt25/2/23 Jessica Grove, networking specialist CoordinatorCase Bqrizbewdf32/3/23 Lisette Perkins, VISUAL MERCHANDISER-SALES DEVELOPMENT REPRESENTATIVE [address] [phone] Nurse PractitionerHematology and Gqtzoqww38/13/23 [place] [address] [place] [address] Consulting PhysicianHematology and Oncology11/18/23 [place] [address] [place] [address] Consulting PhysicianHematology and Oncology01/19/24 Team Status: Active Member Role Status Dates Yinka Lopez MD Primary Care Provider Active S tart: January 25, 2024 Fabiola Marinelli MDAttending Provider, Referring ProviderActiveStart: January 25, 2024 Team Status: Inactive Member Role Status Dates Yinka Lopez MD Primary Care Provider Active S tart: February 11, 2024 End: February 11, 2024Lisette Perkins GLASS CUT OFF SUPERVISOR-CAttending ProviderActiveStart: February 11, 2024 End: February 11, 2024Team MemberRelationshipSpecialtyStart DateEnd Date Fabiola Marinelli MD [address] [place] [address] PCP - GeneralHematology and Amwthqww74/21/23 [place] [address] [place] [address] Consulting PhysicianHematology and Qmcrghlk29/2/23 Jessica Grove, networking specialist CoordinatorCase Iablstcyiy51/3/23 Lisette Perkins, VISUAL MERCHANDISER-SALES DEVELOPMENT REPRESENTATIVE [address] [place] [address] Nurse PractitionerHematology and Pxtafrpg99/13/23 [place] PhD [address] [place] [address] Consulting PhysicianHematology and Oncology11/18/23 [place] [address] [place] [address] Consulting PhysicianHematology and Oncology01/19/24Team MemberRelationship SpecialtyStart DateEnd Date Fabiola Marinelli MD [address] [place] [address] PCP - GeneralHematology and Mwxadoam69/21/23 [place] PhD [address] [place] [address] Consulting PhysicianHematology and Btzlcyvq72/2/23 Jessica Grove RN Transitional Care CoordinatorCase Mtbuhcpkmy48/3/23 Lisette Perkins APRN-[facility] [address] [place], [place] [phone] Nurse PractitionerHematology and Atzfsweb68/13/23 Theresa Romano MD PhD [id number] [place] [address] Consulting PhysicianHematology and Oncology11/18/23 [place] [address] [place] [address] Consulting PhysicianHematology and Oncology01/19/24Team MemberRelationship SpecialtyStart DateEnd Date Fabiola Marinelli MD [address] [place] [address] PCP - GeneralHematology and Wouhdhfg99/21/23 [place] PhD [address] [place] [address] Consulting PhysicianHematology and Pbxbbpqn96/2/23 Jessica Grove, networking specialist CoordinatorCase Qlkbruolxj80/3/23 Lisette Perkins APRN-SALES DEVELOPMENT REPRESENTATIVE [address] [place] [address] Nurse PractitionerHematology and Aidjkecx44/13/23 [place] PhD [address] [place] [address] Consulting PhysicianHematology and Oncology11/18/23 [place] PhD [address] [place], [place] [phone] Consulting PhysicianHematology and Oncology01/19/24 Team Status: Active Member Role Status Dates Yinka Lopez MD Primary Care Provider Active S tart: February 24, 2024 Fabiola Marinelli MDAttending Provider, Referring ProviderActiveStart: February 24, 2024 Team Status: Active Member Role Status Dates Yinka Lopez MD Primary Care Provider Active S tart: February 29, 2024 Fabiola Marinelli , MDReferring Provider, Other ProviderActiveStart: February 29, 2024 Ritchie Mcmillan MDAttending ProviderActiveStart: February 29, 2024 Team Status: Inactive Member Role Status Dates Yinka Lopez MD Primary Care Provider Active S tart: March 21, 2024 End: March 21, 2024Loyd Raymundo , DOAttending ProviderActiveStart: March 21, 2024 End: March 21, 2024 Team Status: Inactive Member Role Status Dates Yinka Lopez MD Primary Care Provider Active S tart: March 24, 2024 End: March 24, 2024Rene Carlson ProviderActiveStart: March 24, 2024 End: March 24, 2024 Team Status: Active Member Role Status Dates Ez Delgado MD Emergency Provider Active Star t: April 10, 2024 [facility] ProviderActiveStart: April 10, 2024 Jan Roseit Provider, Attending ProviderActiveStart: April 10, 2024 Team MemberRelationshipSpecialtyStart DateEnd Date Yinka Lopez MD [address] [place] [address] PCP - [facility]01/22/15 Barbara Lima APRN [address] [place] [address] [facility]04/18/19 Team Status: Inactive Member Role Status Dates Ez Delgado MD Emergency Provider Active Star t: April 10, 2024 End: April 19Kyara Jurado Care ProviderActiveStart: April 10, 2024 End: April 19, 2024Jeferson Rose ProviderActiveStart: April 10, 2024 End: April 19, 2024Timur Valadez MDOther ProviderActiveStart: April 10, 2024 End: April 19yudith Blancas MDOther ProviderActiveStart: April 10, 2024 End: April 19Mare Lutherher ProviderActiveStart: April 10, 2024 End: April 19, 2024Stephanie Hardy MDOther ProviderActiveStart: April 10, 2024 End: April 19duran Sanchez DOOther ProviderActiveStart: April 10, 2024 End: April 19, 2024Lakeisha Miller MDOther ProviderActiveStart: April 10, 2024 End: April 19Jeimy Hernandezending ProviderActiveStart: April 10, 2024 End: April 19, 2024 Team Status: Active Member Role Status Dates Ez Delgado MD Emergency Provider Active Star t: April 11, 2024 Kyara Niño Care ProviderActiveStart: April 11, 2024 Jeferson Rose ProviderActiveStart: April 11, 2024 oMdesto Aquino MDOther ProviderActiveStart: April 11, 2024 Timur Valadez MDOther ProviderActiveStart: April 11, 2024 Real Blancas MDOther ProviderActiveStart: April 11, 2024 Anish De La Cruz , APRNOther ProviderActiveStart: April 11, 2024 Stephanie Hardy MDOther ProviderActiveStart: April 11, 2024 Garcia Roger Ly , DOOther ProviderActiveStart: April 11, 2024 Lakeisha Miller MDAttending Provider, Other ProviderActiveStart: April 11, 2024 Team Status: Active Member Role Status Dates Ez Delgado MD Emergency Provider Active Star t: April 11, 2024 Margie Niñoy Care ProviderActiveStart: April 11, 2024 Vicente Linton DOAdmit ProviderActiveStart: April 11, 2024 Modesto Aquino MDOther ProviderActiveStart: April 11, 2024 Timur Valadez MDOther ProviderActiveStart: April 11, 2024 Real Blancas MDOther ProviderActiveStart: April 11, 2024 Anish De La Cruz APRNOther ProviderActiveStart: April 11, 2024 Stephanie Hardy MDOther ProviderActiveStart: April 11, 2024 Garcia Sanchez , DOAttending Provider, Other ProviderActiveStart: April 11, 2024 Lakeisha Miller MDOther ProviderActiveStart: April 11, 2024 Ritchie Mcmillan MDOther ProviderActiveStart: April 11, 2024 Team Status: Active Member Role Status Dates Ez Delgado MD Emergency Provider Active Star t: April 11, 2024 SHANTELLE Niñoriblairy Care ProviderActiveStart: April 11, 2024 Vicente Linton DOAdmit ProviderActiveStart: April 11, 2024 Modesto Aquino MDOther ProviderActiveStart: April 11, 2024 Timur Valadez MDOther ProviderActiveStart: April 11, 2024 Real Blancas MDOther ProviderActiveStart: April 11, 2024 Anish De La Cruz , APRNOther ProviderActiveStart: April 11, 2024 Stephanie Hardy MDOther ProviderActiveStart: April 11, 2024 Garcia L Ly , DOOther ProviderActiveStart: April 11, 2024 Lakeisha Miller MDOther ProviderActiveStart: April 11, 2024 Ritchie Mcmillan , MDAttending Provider, Other ProviderActiveStart: April 11, 2024 Team Status: Active Member Role Status Dates Ez Delgado MD Emergency Provider Active Star t: April 13, 2024 SHANTELLE Niñorimary Care ProviderActiveStart: April 13, 2024 Vicente Linton , DOAdmit ProviderActiveStart: April 13, 2024 Modesto Aquino MDOther ProviderActiveStart: April 13, 2024 Timur Valadez MDOther ProviderActiveStart: April 13, 2024 Real Blancas MDOther ProviderActiveStart: April 13, 2024 Anish De La Cruz , APRNOther ProviderActiveStart: April 13, 2024 Stephanie Hardy MDOther ProviderActiveStart: April 13, 2024 Garcia Sanchez , DOOther ProviderActiveStart: April 13, 2024 Lakeisha Miller MDOther ProviderActiveStart: April 13, 2024 Ritchie Mcmillan MDOther ProviderActiveStart: April 13, 2024 Belia Hernandez RNOther ProviderActiveStart: April 13, 2024 Clifton Gonzales MDOther ProviderActiveStart: April 13, 2024 João Belcher , MDAttending Provider, Other ProviderActiveStart: April 13, 2024 Lisette Finn MDOther ProviderActiveStart: April 13, 2024 Team Status: Active Member Role Status Dates Ez Delgado MD Emergency Provider Active Star t: April 18, 2024 SHANTELLE Niñoriblairy Care ProviderActiveStart: April 18, 2024 Vicente Linton DOAdmit ProviderActiveStart: April 18, 2024 Timur Valadez MDOther ProviderActiveStart: April 18, 2024 Real Blancas MDOther ProviderActiveStart: April 18, 2024 Anish De La Cruz , AFIANOther ProviderActiveStart: April 18, 2024 Stephanie Hardy MDOther ProviderActiveStart: April 18, 2024 Garcia Sanchez , DOOther ProviderActiveStart: April 18, 2024 Lakeisha Miller MDAttending Provider, Other ProviderActiveStart: April 18, 2024 Hortensia Clinton MDOther ProviderActiveStart: April 18, 2024 Team Status: Active Member Role Status Dates Ez Delgado MD Emergency Provider Active Star t: April 11, 2024 End: April 19rian Lopez , MDPrimary Care ProviderActiveStart: April 11, 2024 End: April 19, 2024Vicente Linton DOit ProviderActiveStart: April 11, 2024 End: April 19, 2024Modesto Aquino MDOther ProviderActiveStart: April 11, 2024 End: April 19, 2024Timur Valadez MDOther ProviderActiveStart: April 11, 2024 End: April 19Paulo Chester ProviderActiveStart: April 11, 2024 End: April 19vika De La Cruz APRNOt ProviderActiveStart: April 11, 2024 End: April 19, 2024Paulo Rao ProviderActiveStart: April 11, 2024 End: April 19duran Sanchez , DOOther ProviderActiveStart: April 11, 2024 End: April 19, 2024Mattyacacia Miller Jeimyending Provider, Other ProviderActive Start: April 11, 2024 End: April 19, 2024 Team Status: Active Member Role Status Dates Ez Delgado MD Emergency Provider Active Star t: April 11, 2024 End: April 19rijesus Lopez , MDPrimary Care ProviderActiveStart: April 11, 2024 End: April 19, 2024Vicente Linton DOAdmit ProviderActiveStart: April 11, 2024 End: April 19, 2024Modesto Aquino MDOther ProviderActiveStart: April 11, 2024 End: April 19, 2024Paulo Cooley ProviderActiveStart: April 11, 2024 End: April 19yudith Blancas MDOther ProviderActiveStart: April 11, 2024 End: April 19vika De La Cruz APRNOther ProviderActiveStart: April 11, 2024 End: April 19, 2024ImaPaulo Sears ProviderActiveStart: April 11, 2024 End: April 19duran Roger Ly , DOAttending Provider, Other ProviderActive Start: April 11, 2024 End: April 19, 2024MicPaulo English ProviderActiveStart: April 11, 2024 End: April 19karen Mcmillan MDOther ProviderActiveStart: April 11, 2024 End: April 19, 2024 Team Status: Active Member Role Status Dates Ez Delgado MD Emergency Provider Active Star t: April 11, 2024 End: April 19rian Lopez , MDPrimary Care ProviderActiveStart: April 11, 2024 End: April 19, 2024Jeferson Rose ProviderActiveStart: April 11, 2024 End: April 19, 2024Modesto Aquino MDOther ProviderActiveStart: April 11, 2024 End: April 19, 2024Paulo Cooley ProviderActiveStart: April 11, 2024 End: April 19Paulo Chester ProviderActiveStart: April 11, 2024 End: April 19Zachary Luther ProviderActiveStart: April 11, 2024 End: April 19, 2024ImaPaulo Sears ProviderActiveStart: April 11, 2024 End: April 19duran Sanchez , DOOther ProviderActiveStart: April 11, 2024 End: April 19, 2024Paulo Conner ProviderActiveStart: April 11, 2024 End: April 19karen Mcmillan , MDAttending Provider, Other ProviderActiveStart: April 11, 2024 End: April 19, 2024 Team Status: Active Member Role Status Dates Ez Delgado MD Emergency Provider Active Star t: April 13, 2024 End: April 19rian Lopez , MDPrimary Care ProviderActiveStart: April 13, 2024 End: April 19, 2024Shawn J Linton , DOAdmit ProviderActiveStart: April 13, 2024 End: April 19, 2024Modesto Aquino MDOther ProviderActiveStart: April 13, 2024 End: April 19, 2024Paulo Cooley ProviderActiveStart: April 13, 2024 End: April 19Paulo Chester ProviderActiveStart: April 13, 2024 End: April 19Zachary Luther ProviderActiveStart: April 13, 2024 End: April 19, 2024Paulo Rao ProviderActiveStart: April 13, 2024 End: April 19duran Sanchez DOOther ProviderActiveStart: April 13, 2024 End: April 19, 2024Micdagmar Miller MDOther ProviderActiveStart: April 13, 2024 End: April 19Paulo Yanes ProviderActiveStart: April 13, 2024 End: April 19, 2024Belia Hernandez RNOther ProviderActiveStart: April 13, 2024 End: April 19, 2024Stchelle Gonzales MDOther ProviderActiveStart: April 13, 2024 End: April 19, 2024GeAdina Luna Provider, Other ProviderActiveStart: April 13, 2024 End: April 19, 2024Paulo Denny ProviderActiveStart: April 13, 2024 End: April 19, 2024 Team Status: Active Member Role Status Dates Ez Delgado MD Emergency Provider Active Star t: April 18, 2024 End: April 19SHANTELLE [facility] Care ProviderActiveStart: April 18, 2024 End: April 19, 2024Jeferson Rose ProviderActiveStart: April 18, 2024 End: April 19, 2024Timur Valadez MDOther ProviderActiveStart: April 18, 2024 End: April 19Paulo Chester ProviderActiveStart: April 18, 2024 End: April 19Zachary Luther ProviderActiveStart: April 18, 2024 End: April 19, 2024Paulo Rao ProviderActiveStart: April 18, 2024 End: April 19atherine L Ly , DOOther ProviderActiveStart: April 18, 2024 End: April 19, 2024Micdagmar Miller , MDAttending Provider, Other ProviderActive Start: April 18, 2024 End: April 19Paulo Hernandez ProviderActiveStart: April 18, 2024 End: April 19, 2024 Team Status: Inactive Member Role Status Dates Yinka Lopez MD Primary Care Provider Active S tart: May 30, 2024 End: May 30atherine L Ly , DOAttending ProviderActiveStart: May 30, 2024 End: May 30, 2024 Team Status: Inactive Member Role Status Dates Yinka Lopez MD Primary Care Provider Active S tart: June 27, 2024 End: June 27, 2024Loyd Raymundo , Attending ProviderActiveStart: June 27, 2024 End: June 27, 2024 Team Status: Inactive Member Role Status Dates Yinka Lopez MD Primary Care Provider Active S tart: June 28, 2024 End: June 28, 2024Rene Carlson ProviderActiveStart: June 28, 2024 End: June 28, 2024 Team Status: Active Member Role Status Dates Yinka Lopez MD Primary Care Provider Active S tart: June 29, 2024 Adina Rubalcava Provider, Referring ProviderActiveStart: June 29, 2024 Team Status: Inactive Member Role Status Dates Yinka Lopez MD Primary Care Provider Active S tart: June 29, 2024 End: June 29Adina Tsai ProviderActiveStart: June 29, 2024 End: June 29, 2024 Team Status: Inactive Member Role Status Jono Lopez MD Primary Care Provider Active S tart: June 29, 2024 End: June 29, 2024Loyd Raymundo , DOAttending ProviderActiveStart: June 29, 2024 End: June 29, 2024Team MemberRelationshipSpecialtyStart DateEnd Date Yinka Lopez MD [address] [place] [address] PCP - [facility]01/22/15 Barbara Lima APRN [address] [place] [address] [facility]04/18/19 Team Status: Inactive Member Role Status Dates Yinka Lopez MD Primary Care Provider Active S tart: August 08, 2024 End: August 08, 2024Letty Newsome APRN GLASS CUT OFF SUPERVISOR-CAttending ProviderActive Start: August 08, 2024 End: August 08, 2024Team MemberRelationshipSpecialtyStart DateEnd Date Yinka Lopez MD [address] [place] [address] PCP - [facility]03/26/23 Yinka Lopez MD [address] [place] [address] PCP - [facility]05/19/23 Fabiola Palumbo NP [address] [place] [address] Nurse PractitionerClar[facility] Hospitally Medicine05/19/23 Letty Newsome NP [address] [place] [address] Nurse PractitionerPulmonary Disease05/19/23 Sima Paul, RN Registered NurseG[facility] Lvpnutxf23/23/23Team MemberRelationshipSpecialtyStart DateEnd Date Fabiola Marinelli MD [address] [place] [address] PCP - GeneralHematology and Clskwsft25/21/23 [place] PhD [address] [place] [address] Consulting PhysicianHematology and Qskehyoq45/2/23 Jessica Grove, networking specialist CoordinatorCase Xzqvgzduyg45/3/23 Lisette Perkins, VISUAL MERCHANDISER-SALES DEVELOPMENT REPRESENTATIVE [address] [place] [id number] Nurse PractitionerHematology and Jiabdqbe09/13/23 Theresa Romano [place] PhD [address] [place] [id number] Consulting PhysicianHematology and Oncology11/18/23 [place] Epps [place] PhD [address] [place] 2[address]106 Consulting PhysicianHematology and Oncology01/19/24Team MemberRelationship SpecialtyStart DateEnd Date Yinka Lopez MD [address] [place] [id number] PCP - [facility]03/26/23 Yinka Lopez MD [address] [place] [address] PCP - GeneralFamily Medicine05/19/23 Fabiola Palumbo NP [address] [place] [address] Nurse PractitionerFamily Medicine05/19/23 Letty Newsome GLASS CUT OFF SUPERVISOR [address] [place] [address] Nurse PractitionerPulmonary Disease05/19/23 Sima Paul, RN Registered NurseD[facility]08/24/23Team MemberRelationshipSpecialtyStart DateEnd Date Yinka Lopez MD [address] [place] [address] PCP - [facility]03/26/23 Yinka Lopez MD [address] [place] [address] [facility] - [facility]Cl[facility]05/19/23 Fabiola Palumbo NP [address] [place] [address] Nurse PractitionerFawily Medicine05/19/23 Letty Newsome NP [address] [place] [address] Nurse PractitionerPulmonary Disease05/19/23 Sima Paul, RN Registered NurseD[facility] Hospital08/24/23Team MemberRelationshipSpecialtyStart DateEnd Date Yinka Lopez MD [address] [place] [address] PCP - [facility]03/26/23 Yinka Lopez MD [address] [place] [address] PCP - GeneralFamily Medicine05/19/23 Fabiola Palumbo NP [address] [place] [address] Nurse PractitionerFamily Medicine05/19/23 Letty Newsome NP [address] [place] [address] Nurse PractitionerPulmonary Disease05/19/23 Sima Paul RN Registered NurseFamily Kfoapriv13/23/23 Team Status: Inactive Member Role Status Dates Yinka Lopez MD Primary Care Provider Active S tart: August 26, 2024 End: August 26, 2024Rene Carlson ProviderActiveStart: August 26, 2024 End: August 26, 2024 Team Status: Active Member Role Status Dates Yinka Lopez MD Primary Care Provider Active S tart: August 26, 2024 Fabiola Palumbo NP-CAttenpresley ProviderActiveStart: August 26, 2024 Team MemberRelationshipSpecialtyStart DateEnd Date Fabiola Marinelli MD [address] [id number] PCP - GeneralHematology and Grhovkcn67/21/23 [place] PhD [address] [place] [address] Consulting PhysicianHematology and Kdoiazre21/2/23 Jessica Grove, networking specialist CoordinatorCase Nulljmafjr93/3/23 Lisette Perkins APRN-SALES DEVELOPMENT REPRESENTATIVE [address] [place] [address] Nurse PractitionerHematology and Iifmsneo94/13/23 [place] PhD [address] [place] [address] Consulting PhysicianHematology and Oncology11/18/23 [place] PhD [address] [place] [address] Consulting PhysicianHematology and Oncology01/19/24 Team Status: Inactive Member Role Status Dates Yinka Lopez MD Primary Care Provider Active S tart: August 26, 2024 End: August 26my PAMELLA Palumbo-CAttending ProviderActiveStart: August 26, 2024 End: August 26, 2024 Team Status: Inactive Member Role Status Dates Yinka Lopez MD Primary Care Provider Active S tart: September 14, 2024 End: September 14atherine L Ly , DOAttending ProviderActiveStart: September 14, 2024 End: September 14, 2024 Team Status: Inactive Member Role Status Dates Yinka Lopez MD Primary Care Provider Active S tart: September 15, 2024 End: September 15Adina Tsai ProviderActiveStart: September 15, 2024 End: September 15, 2024 Team Status: Active Member Role Status Dates Yinka Lopez MD Primary Care Provider Active S tart: September 15, 2024 Adina Rubalcava Provider, Referring ProviderActiveStart: September 15, 2024 Team Status: Inactive Member Role Status Dates Yinka Lopez MD Primary Care Provider Active S tart: September 15, 2024 End: September 15atherine L Ly , DOAttending ProviderActiveStart: September 15, 2024 End: September 15, 2024 Team Status: Inactive Member Role Status Dates Yinka Lopez MD Primary Care Provider Active S tart: September 19, 2024 End: September 19atherine L Ly , DOAttending ProviderActiveStart: September 19, 2024 End: September 19, 2024Team MemberRelationshipSpecialtyStart DateEnd Date Yinka Lopez MD [address] [place] [address] PCP - [facility]03/26/23 Yinka Lopez MD [address] [place] [address] PCP - GeneralFawily Medicine05/19/23 Fabiola Palumbo, GLASS CUT OFF SUPERVISOR [address] [place] [address] Nurse PractitionerFawily Medicine05/19/23 Letty Newsome NP [address] [place] [address] Nurse PractitionerPulmonary Disease05/19/23 Sima Paul RN Registered NurseFawily Wrzieizk71/23/23Team MemberRelationshipSpecialtyStart DateEnd Yinka Lopez MD [address] [place] [address] PCP - [facility]03/26/23 Yinka Lopez MD [address] [place] [address] PCP - [facility]05/19/23 Fabiola Palumbo, GLASS CUT OFF SUPERVISOR [address] [place] [address] Nurse PractitionerFawily Medicine05/19/23 Letty Newsome NP [address] [place] [address] Nurse PractitionerPulmonary Disease05/19/23 Sima Paul, RN Registered NurseG[facility] Hyhynvpr21/23/23Team MemberRelationshipSpecialtyStart DateEnd Date Yinka Lopez MD [address] [place] [address] PCP - [facility]03/26/23 Yinka Lopez MD [address] [place] [address] PCP - GeneralFamily Medicine05/19/23 Fabiola Palumbo, GLASS CUT OFF SUPERVISOR [address] [place] [address] Nurse PractitionerFamily Medicine05/19/23 Letty Newsome NP [address] [place] [address] Nurse PractitionerPulmonary Disease05/19/23 Sima Paul, RN Registered NurseDodge [facility] Hospital08/24/23Te MemberRelationshipSpecialtyStart DateEnd Date Yinka Lopez MD [address] [place] [address] PCP - [facility]03/26/23 Yinka Lopez MD [address] [place] [address] PCP - GeneralFamily Medicine05/19/23 Fabiola Palumbo, GLASS CUT OFF SUPERVISOR [address] [place] [address] Nurse PractitionerFamily Medicine05/19/23 Letty Newsome GLASS CUT OFF SUPERVISOR [address] [place] [address] Nurse PractitionerPulmonary Disease05/19/23 Sima Paul, LES Registered NurseFamily Nfpogwds80/23/23Team MemberRelationshipSpecialtyStart DateEnd Date Fabiola Marinelli MD [address] [place] [address] PCP - GeneralHematology and Iygdkvhf56/21/23 Supa Lindquist [place] PhD [address] [place] [id number] Consulting PhysicianHematology and Ldkzrjvk42/2/23 Jessica Grove, networking specialist CoordinatorCase Sgizkcslme46/3/23 Lisette Perkins, VISUAL MERCHANDISER-SALES DEVELOPMENT REPRESENTATIVE [address] [place], [place] [address] Nurse PractitionerHematology and Tuwrxcwh40/13/23 Theresa Romano [place] PhD [address] [place] [phone] Consulting PhysicianHematology and Oncology11/18/23 [place] PhD [address] [place] [address] Consulting PhysicianHematology and Oncology01/19/24Team MemberRelationship SpecialtyStart DateEnd Date Fabiola Marinelli MD [address] [place], [place] [address] PCP - GeneralHematology and Vrikiyby49/21/23 [place]quist [place] PhD [address] [place] [address] Consulting PhysicianHematology and Itunvanz13/2/23 Jessica Grove RN Transitional Care CoordinatorCase Vcogriddgk55/3/23 Lisette Perkins, VISUAL MERCHANDISER-SALES DEVELOPMENT REPRESENTATIVE [address] [place] [address] Nurse PractitionerHematology and Rvqdlsdh27/13/23 [place] PhD [address] [place] [address] Consulting PhysicianHematology and Oncology11/18/23 [place] PhD [address] [place] [address] Consulting PhysicianHematology and Oncology01/19/24Team MemberRelationship SpecialtyStart DateEnd Date Fabiola Marinelli MD [address] [place], [place] [address] PCP - GeneralHematology and Hrgampfj34/21/23 [place]quist [place] PhD [address] [place] [address] Consulting PhysicianHematology and Mwzdamml46/2/23 Jessica Grove, networking specialist CoordinatorCase Bpurpdgqit44/3/23 Lisette Perkins, VISUAL MERCHANDISER-SALES DEVELOPMENT REPRESENTATIVE [address] [place] [address] Nurse PractitionerHematology and Ixadqukm95/13/23 Theresa Romano [place] PhD [address] [place], [place] [address] Consulting PhysicianHematology and Oncology11/18/23 [place]pps [place] PhD [address] [place] [address] Consulting PhysicianHematology and Oncology01/19/24Team MemberRelationship SpecialtyStart DateEnd Date Yinka Lopez MD [address] [place] [address] PCP - [facility]03/26/23 Yinka Lopez MD [address] [place] [phone] PCP - GeneralFamily Medicine05/19/23 Fabiola Palumbo NP [address] [place] [address] Nurse PractitionerFamily Medicine05/19/23 Letty Newsome NP [address] [place] [address] Nurse PractitionerPulmonary Disease05/19/23 Sima Paul, LES Registered NurseFamily Ebdjjafm59/23/23Team MemberRelationshipSpecialtyStart DateEnd Date Yinka Lopez MD [address] [place] [address] PCP - [facility]03/26/23 Yinka Lopez MD [address] [place] [address] PCP - GeneralFamily Medicine05/19/23 Fabiola Palumbo, PAMELLA [address] [place] [address] Nurse PractitionerFawily Medicine05/19/23 Letty Newsome NP [address] [place] [address] Nurse PractitionerPulmonary Disease05/19/23 Sima Paul, LES Registered NurseD[facility] Hospital08/24/23Team MemberRelationshipSpecialtyStart DateEnd Yinka Lopez MD [address] [place] [address] PCP - [facility]03/26/23 Yinka Lopez MD [address] [place] [address] PCP - GeneralFamily Medicine05/19/23 Fabiola Palumbo, PAMELLA [address] [place] [address] Nurse PractitionerFawily Medicine05/19/23 Letty Newsome NP [address] [place] [address] Nurse PractitionerPulmonary Disease05/19/23 Sima Paul, LES Registered NurseD[facility] Hospital08/24/23 Team Status: Inactive Member Role Status Dates Yinka Lopez MD Primary Care Provider Active S tart: October 05, 2024 End: October 05my Yves MDAttending ProviderActiveStart: October 05, 2024 End: October 05, 2024 Team Status: Inactive Member Role Status Dates Yinka Lopez MD Primary Care Provider Active S tart: October 21, 2024 End: October 21, 2024Katie Holder , AFIANAttending ProviderActiveStart: October 21, 2024 End: October 21, 2024 Team Status: Inactive Member Role Status Dates Ynika Lopez MD Primary Care Provider Active S tart: October 24, 2024 End: October 24atherine Acacia Ly , DOAttending ProviderActiveStart: October 24, 2024 End: October 24, 2024 Team Status: Active Member Role Status Dates Yinka Lopez MD Primary Care Provider Active S tart: November 16, 2024 Jeimy Rubalcavaending Provider, Referring ProviderActiveStart: November 16, 2024 Team Status: Inactive Member Role Status Dates Yinka Lopez MD Primary Care Provider Active S tart: November 16, 2024 End: November 16my Yves MDAttending ProviderActiveStart: November 16, 2024 End: November 16, 2024Team MemberRelationshipSpecialtyStart DateEnd Date Yinka Lopez MD [address] [place] [address] PCP - [facility]03/26/23 Yinka Lopez MD [address] [place] [address] PCP - GeneralFawily Medicine05/19/23 Fabiola Palumbo NP [address] [place] [address] Nurse PractitionerClarke [facility] Hospitally Medicine05/19/23 Letty Newsome NP [address] [place] [address] Nurse PractitionerPulmonary Disease05/19/23 Sima Paul, LES Registered NurseFamily Xuvmcnpg87/23/23Team MemberRelationshipSpecialtyStart DateEnd Date Fabiola Marinelli MD [address] [place] [id number] PCP - GeneralHematology and Yedfjzux72/21/23 Supa Lindquist MD PhD [address] [place], [place] [address] Consulting PhysicianHematology and Nztjkfff28/2/23 Jessica Grove RN Transitional Care CoordinatorCase Kjokyqctyn84/3/23 Lisette Perkins, VISUAL MERCHANDISER-SALES DEVELOPMENT REPRESENTATIVE [address] [place], [place] [address] Nurse PractitionerHematology and Mzsseyfd99/13/23 Theresa Romano MD PhD [address] [place] [address] Consulting PhysicianHematology and Oncology11/18/23 [place] PhD [address] [place] [address] Consulting PhysicianHematology and Oncology01/19/24Team MemberRelationship SpecialtyStart DateEnd Date Yinka Lopez MD [address] [place] [address] PCP - [facility]03/26/23 Yinka Lopez MD [address] [id number] PCP - GeneralFamily Medicine05/19/23 Fabiola Palumbo NP [address] [facility] [place] [phone] Nurse PractitionerFamily Medicine05/19/23 Letty Newsome GLASS CUT OFF SUPERVISOR [address] [place] [address] Nurse PractitionerPulmonary Disease05/19/23 Sima Paul RN Registered NurseFamily Ydwjpmcy62/23/23Team MemberRelationshipSpecialtyStart DateEnd Date Fabiola Marinelli MD [address] [place] [address] PCP - GeneralHematology and Qrvynsze20/21/23 Supa Lindquist MD PhD [address] [place] 2659106 Consulting PhysicianHematology and Wfvlyyoz09/2/23 Jessica Grove, networking specialist CoordinatorCase Eezcczwneq21/3/23 Lisette Perkins, VISUAL MERCHANDISER-SALES DEVELOPMENT REPRESENTATIVE [address] [place], [place] [address] Nurse PractitionerHematology and Obanhrne63/13/23 Theresa Rom[place] PhD [address] [place] [address] Consulting PhysicianHematology and Oncology11/18/23 [place] PhD [address] [place] [address] Consulting PhysicianHematology and Oncology01/19/24Team MemberRelationship SpecialtyStart DateEnd Date Yinka Lopez MD [address] [place] [address] PCP - [facility]03/26/23 Yinka Lopez MD [address] [place] [address] PCP - GeneralFamily Medicine05/19/23 Fabiola Palumbo, GLASS CUT OFF SUPERVISOR [address] [place] [address] Nurse PractitionerFamily Medicine05/19/23 Letty Newsome NP [address] [place] [address] Nurse PractitionerPulmonary Disease05/19/23 Sima Paul RN Registered NurseFamily Ptgdjmas70/23/23Team MemberRelationshipSpecialtyStart DateEnd Date Yinka Lopez MD [address] [place] [address] PCP - [facility]03/26/23 Yinka Lopez MD [address] [place] [address] PCP - GeneralFawily Medicine05/19/23 Fabiola Palumbo GLASS CUT OFF SUPERVISOR [address] [place] [address] Nurse PractitionerFamily Medicine05/19/23 Letty Newsome NP [address] [place] [address] Nurse PractitionerPulmonary Disease05/19/23 Sima Paul, RN Registered NurseFawily Grsffwke05/23/23 Team Status: Active Member Role Status Dates Yinka Lopez MD Primary Care Provider Active S tart: December 08, 2024 Fabiola Marinelli MDAttending Provider, Referring ProviderActiveStart: December 08, 2024 Team Status: Inactive Member Role Status Dates Yinka Lopez MD Primary Care Provider Active S tart: December 20, 2024 End: December 20, 2024PaVonnie Deluna ProviderActiveStart: December 20, 2024 End: December 20, 2024 Team Status: Inactive Member Role Status Dates Yinka Lopez MD Primary Care Provider Active S tart: December 23, 2024 End: December 23, 2024Rene Carlson ProviderActiveStart: December 23, 2024 End: December 23, 2024Team MemberRelationshipSpecialtyStart DateEnd Yinka Lopez MD [address] [place] [phone] PCP - [facility]03/26/23 Yinka Lopez MD [address] [facility] PCP - GeneralFawily Medicine05/19/23 Fabiola Palumbo NP [address] [place] [address] Nurse PractitionerFabaystate franklin medical [facility] Medicine05/19/23 Letty Newsome NP [address] [place] [address] Nurse PractitionerPulmonary Disease05/19/23 Sima Paul, RN Registered NurseG[facility]ner [facility] Hospital Vicmosct51/23/23 Team Status: Inactive Member Role Status Dates Yinka Lopez MD Primary Care Provider Active S tart: December 29, 2024 End: December 29Adina Tsai ProviderActiveStart: December 29, 2024 End: December 29, 2024 Team Status: Active Member Role Status Dates Yinka Lopez MD Primary Care Provider Active S tart: December 29, 2024 Adina Rubalcava Provider, Referring ProviderActiveStart: December 29, 2024 Team MemberRelationshipSpecialtyStart DateEnd Date Yinka Lopez MD [address] [place] [phone] PCP - [facility]03/26/23 Yinka Lopez MD [address] [place] [phone] PCP - GeneralFamily Medicine05/19/23 Fabiola Palumbo NP [address] [place] [address] Nurse PractitionerFamily Medicine05/19/23 Letty Newsome NP [address] [place] [address] Nurse PractitionerPulmonary Disease05/19/23 Sima Paul, RN Registered NurseGardner [facility] Hospital Eemyqqev32/23/23Team MemberRelationshipSpecialtyStart DateEnd Date Fabiola Marinelli MD [address] [place], [place] [address] [address] PCP - GeneralHematology and Ehjdyzzr19/21/23 [place]quist [place] PhD [address] [place] [address] Consulting PhysicianHematology and Rzqhvxvr08/2/23 Jessica Grove, networking specialist CoordinatorCase Bhxgtlivlq14/3/23 Lisette Perkins, VISUAL MERCHANDISER-SALES DEVELOPMENT REPRESENTATIVE [address] [place] [address] Nurse PractitionerHematology and Objpajha87/13/23 [place] Rom[place] PhD [address] [place] [address] Consulting PhysicianHematology and Oncology11/18/23 [place] PhD [address] [place] [address] Consulting PhysicianHematology and Oncology01/19/24Team MemberRelationship SpecialtyStart DateEnd Date Yinka Lopez MD [address] [place] [address] PCP - [facility]03/26/23 Yinka Lopez MD [address] [place] [address] PCP - GeneralFamily Medicine05/19/23 Letty Newsome GLASS CUT OFF SUPERVISOR [address] [place] [address] Nurse PractitionerPulmonary Disease05/19/23 Sima Paul, RN Registered NurseDodge [facility] Hospital08/24/23Team MemberRelationshipSpecialtyStart DateEnd Date Yinka Lopez MD [address] [place] [address] PCP - [facility]03/26/23 Yinka Lopez MD [address] [place] [address] PCP - [facility]05/19/23 Letty Newsome, GLASS CUT OFF SUPERVISOR [address] [place] [address] Nurse PractitionerPulmonary Disease05/19/23 Sima Paul, LES Registered NurseDodge [facility] Hospital08/24/23Team MemberRelationshipSpecialtyStart DateEnd Date Yinka Lopez MD [address] [place] [address] PCP - [facility]03/26/23 Yinka Lopez MD [address] [place] [address] PCP - [facility]05/19/23 Letty Newsome, GLASS CUT OFF SUPERVISOR [address] [place] [address] Nurse PractitionerPulmonary Disease05/19/23 Sima Paul, RN Registered NurseDodge County Hospital08/24/23 Team Status: Active Member Role Status Dates Yinka Lopez MD Primary Care Provider Active S tart: January 31, 2025 Adina Rubalcava Provider, Referring ProviderActiveStart: January 31, 2025 Team Status: Inactive Member Role Status Dates Yinka Lopez MD Primary Care Provider Active S tart: February 03, 2025 End: February 03Adina Tsai ProviderActiveStart: February 03, 2025 End: February 03, 2025 Team Status: Inactive Member Role Status Dates Yinka Lopez MD Primary Care Provider Active S tart: February 14, 2025 End: February 14, 2025Rene Carlson ProviderActiveStart: February 14, 2025 End: February 14, 2025Team MemberRelationshipSpecialtyStart DateEnd Date Yinka Lopez MD [address] [place] [address] PCP - [facility]03/26/23 Yinka Lopez MD [address] [place] [address] PCP - GeneralFamily Medicine05/19/23 Letty Newsome NP [address] [place] [address] Nurse PractitionerPulmonary Disease05/19/23 Sima Paul RN Registered NurseFamily Amfpopvc01/23/23Team MemberRelationshipSpecialtyStart DateEnd Date Yinka Lopez MD [address] [place] [address] PCP - [facility]03/26/23 Yinka Lopez MD [address] [place] [address] PCP - GeneralFamily Medicine05/19/23 Letty Newsome NP [address] [place] [address] Nurse PractitionerPulmonary Disease05/19/23 Sima Paul, RN Registered [facility]08/24/23Team MemberRelationshipSpecialtyStart DateEnd Date Yinka Lopez MD [address] [place] [address] PCP - [facility]03/26/23 Yinka Lopez MD [address] [place] [address] PCP - [facility]05/19/23 Letty Newsome NP [address] [place] [address] Nurse PractitionerPulmonary Disease05/19/23 Sima Paul, RN Registered [facility]08/24/23Team MemberRelationshipSpecialtyStart DateEnd Date Yinka Lopez MD [address] [place] [address] PCP - [facility]03/26/23 Yinka Lopez MD [address] [place] [address] PCP - [facility]05/19/23 Letty Newsome NP [address] [place] [phone] Nurse PractitionerPulmonary Disease05/19/23 Sima Paul, RN Registered NurseFabaystate frank[facility] medical center Waxvhguu43/23/23Team MemberRelationshipSpecialtyStart DateEnd Date Yinka Lopez MD [address] [place] [address] PCP - [facility]03/26/23 Yinka Lopez MD [address] [place] [address] PCP - GeneralFamily Medicine05/19/23 Letty Newsome NP [address] [place] [address] Nurse PractitionerPulmonary Disease05/19/23 Sima Paul, RN Registered [facility]08/24/23 Team Status: Active Member Role Status Dates Yinka Lopez MD Primary Care Provider Active S tart: March 16, 2025 Rene Carlson ProviderActiveStart: March 16, 2025 Team Status: Inactive Member Role Status Dates Yinka Lopez MD Primary Care Provider Active S tart: March 16, 2025 End: March 16Adina Tsai ProviderActiveStart: March 16, 2025 End: March 16, 2025 Team Status: Active Member Role Status Dates Yinka Lopez MD Primary Care Provider Active S tart: March 16, 2025 Adina Rubalcava Provider, Referring ProviderActiveStart: March 16, 2025 Team MemberRelationshipSpecialtyStart DateEnd Date Yinka Lopez MD [address] [place] [address] PCP - [facility]03/26/23 Yinka Lopez MD [address] [place] [address] PCP - GeneralFamily Medicine05/19/23 Letty Newsome NP [address] [place] [address] Nurse PractitionerPulmonary Disease05/19/23 Sima Paul, RN Registered [facility]08/24/23Team MemberRelationshipSpecialtyStart DateEnd Date Yinka Lopez MD [address] [place] [address] PCP - [facility]03/26/23 Yinka Lopez MD [address] [place] [address] PCP - GeneralFamily Medicine05/19/23 Letty Newsome GLASS C[employer] SUPERVISOR [address] [place] [address] Nurse PractitionerPulmonary Disease05/19/23 Sima Paul, RN Registered [facility]08/24/23Team MemberRelationshipSpecialtyStart DateEnd Date Yinka Lopez MD [address] [place] [address] PCP - [facility]03/26/23 Yinka Lopez MD [address] [place] [address] PCP - Generalmily Medicine05/19/23 Letty Newsome GL[employer] C[employer] OFF SUPERVISOR [address] [place] [address] Nurse PractitionerPulmonary Disease05/19/23 Sima Paul, RN Registered NurseD[facility]08/24/23Team MemberRelationshipSpecialtyStart DateEnd Date Yinka Lopez MD [address] [place] [address] PCP - [facility]03/26/23 Yinka Lopez MD [address] [place] [address] PCP - [facility] Medicine05/19/23 Letty Newsome NP [address] [place] [address] Nurse PractitionerPulmonary Disease05/19/23 Sima Paul, RN Registered NurseD[facility]08/24/23Team MemberRelationshipSpecialtyStart DateEnd Date Yinka Lopez MD [address] [place] [facility] PCP - [facility]03/26/23 Yinka Lopez MD [address] [place] [address] PCP - [facility] Medicine05/19/23 Letty Newsome NP [address] [place] [address] Nurse PractitionerPulmonary Disease05/19/23 Sima Paul, LES Registered NurseD[facility]08/24/23Team MemberRelationshipSpecialtyStart DateEnd Date Yinka Lopez MD [address] [place] [address] PCP - [facility]03/26/23 Yinka Lopez MD [address] [place] [address] PCP - [facility]05/19/23 Letty Newsome GL[employer] C[employer] SUPERVISOR [address] [place] [address] Nurse PractitionerPulmonary Disease05/19/23 Sima Paul, [place] [address] [place] [address] Registered NurseD[facility]08/24/23Team MemberRelationshipSpecialtyStart DateEnd Date Yinka Lopez MD [address] [place] [address] PCP - [facility] Medicine01/22/15 Barbara Lima APRN [address] [place] [address] ReferringDodge County Hospital04/18/19Team MemberRelationshipSpecialtyStart DateEnd Date Yinka Lopez MD [address] [place] [address] PCP - [facility]03/26/23 Emely Pedersen DO [address] [place] [address] PCP - [facility]04/25/25 Sima Paul, RN [address] [place] [address] Registered NurseD[facility] Hospital08/24/23Te MemberRelationshipSpecialtyStart DateEnd Date Yinka Lopez MD [address] [place] [address] [facility]03/26/23 Emely Pedersen DO [address] [place] [address] [facility] - [facility]04/25/25 Sima Paul RN [address] [place] [address] Registered NurseD[facility] Hospital08/24/23Te MemberRelationshipSpecialtyStart DateEnd Date Yinka Lopez MD [address] [place] [address] [facility]03/26/23 Emely Pedersen DO [address] [place] [address] [facility]04/25/25 Sima Paul, LES [address] [place] [address] Registered NurseD[facility] Hospital08/24/23Te MemberRelationshipSpecialtyStart DateEnd Date Yinka Lopze MD [address] [place] [address] PCP - [facility]03/26/23 Emely Pedersen DO [address] [place] [address] [place] [address] PCP - [facility] Medicine04/25/25 Sima Paul, LES [address] [place] [address] Registered NurseD[facility]08/24/23 Team Status: Active Member Role Status Dates Yinka Lopez MD Primary Care Provider Active S tart: May 17, 2025 Fabiola Marinelli MDAttending ProviderActiveStart: May 17, 2025 Fabiola Marinelli MDReferring ProviderActiveStart: May 17, 2025 Team Status: Inactive Member Role Status Dates Yinka Lopez MD Primary Care Provider Active S tart: May 18, 2025 End: May 18, 2025Rene Carlson ProviderActiveStart: May 18, 2025 End: May 18, 2025 Team Status: Active Member Role Status Dates Yinka Lopez MD Primary Care Provider Active S tart: May 18, 2025 Fabiola Marinelli MDAttending ProviderActiveStart: May 18, 2025 Fabiola Marinelli MDReferring ProviderActiveStart: May 18, 2025 Team Status: Active Member Role Status Dates Fabiola Marinelli MD Attending Provider Active Start: May 30, 2025 Fabiola Marinelli MDReferring ProviderActiveStart: May 30, 2025 Judah Ferrara [facility] ProviderActiveStart: May 30, 2025 Team MemberRelationshipSpecialtyStart DateEnd Date Yinka Lopez MD [address] [place] [address] PCP - [facility]03/26/23 Emely Pedersen DO [address] [place] [address] PCP - [facility]04/25/25 Sima Paul, LES [address] [place] [address] Registered NurseD[facility]08/24/23Te MemberRelationshipSpecialtyStart DateEnd Date Yinka Lopez MD [address] [place] [address] [facility]03/26/23 Emely Pedersen DO [address] [place] [address] PCP - [facility]04/25/25 Sima Paul RN [address] [place] [address] Registered NurseD[facility] Hospital08/24/23Te MemberRelationshipSpecialtyStart DateEnd Yinka Lopez MD [address] [place] [address] [facility]03/26/23 Emely Pedersen DO [address] [place] [address] [facility]04/25/25 Sima Paul RN [address] [place] [address] Registered NurseD[facility] Hospital08/24/23Te MemberRelationshipSpecialtyStart DateEnd Date Yinka Lopez MD [address] [place] [address] PCP - [facility]03/26/23 Emely Pedersen DO [address] [place] [address] [facility]04/25/25 Sima Paul, LES [address] [place] [address] Registered NurseD[facility] Hospital08/24/23Team MemberRelationshipSpecialtyStart DateEnd Date Yinka Lopez MD [address] [place] [address] [facility] - [facility]03/26/23 Emely Pedersen DO [address] [place] [address] PCP - [facility]04/25/25 Sima Paul RN [address] [place] [address] Registered NurseD[facility] Hospital08/24/23Te MemberRelationshipSpecialtyStart DateEnd Date Yinka Lopez MD [address] [place] [address] [facility] - [facility]03/26/23 Emely Pedersen DO [address] [place] [address] PCP - [facility] Medicine04/25/25 Sima Paul, LES [address] [place] [address] Registered NurseFamily Oeydyslo46/23/23Te MemberRelationshipSpecialtyStart DateEnd Date Emely Pedersen DO [address] [place] [address] PCP - GeneralFamily Medicine05/09/25 [place] [address] [place] [address] Consulting PhysicianHematology and Ufmyvpwu47/2/23 Jessica Grove, networking specialist CoordinatorCase Skqgiggbkm61/3/23 Lisette Perkins, VISUAL MERCHANDISER-SALES DEVELOPMENT REPRESENTATIVE Nurse PractitionerHematology and Jjxmwyvi70/13/23 [place] [address] [place] [address] Consulting PhysicianHematology and Oncology11/18/23 [place] [address] [place] [address] Consulting PhysicianHematology and Oncology01/19/24Te MemberRelationship SpecialtyStart DateEnd Date Emely Pedersen DO [address] [place] [address] PCP - Generalmily Medicine05/09/25 [place] PhD [address] [place] [address] Consulting PhysicianHematology and Ywcwzzfg79/2/23 Jessica Grove, networking specialist CoordinatorCase Uoowugunub31/3/23 Lisette Perkins, VISUAL MERCHAND[employer]SALES DEVELOPMENT REPRESENTATIVE Nurse PractitionerHematology and Hsxpaeaf59/13/23 [place] PhD [address] [place] [address] Consulting PhysicianHematology and Oncology11/18/23 [place] PhD [address] [place] [address] Consulting PhysicianHematology and Oncology01/19/24 Team Status: Active Member Role Status Dates Emely Pedersen DO Primary Care Provider Active Start: July 19, 2025 Katie Holder APRNAtst. luke's wood river medical centerpresley ProviderActiveStart: July 19, 2025 Team Status: Inactive Member Role Status Dates Emely Pedersen DO Primary Care Provider Active Start: July 27, 2025 End: July 27radha Marinelli MDAttending ProviderActiveStart: July 27, 2025 End: July 27, 2025 Team Status: Active Member Role Status Dates Fabiola Marinelli MD Attending Provider Active Start: July 27, 2025 Fabiola Marinelli MDReferring ProviderActiveStart: July 27, 2025 Emely Pedersen DOPrid.w. m[facility] hospitaly Care ProviderActiveStart: July 27, 2025 Team MemberRelationshipSpecialtyStart DateEnd Date Yinka Lopez MD [address] [place] [address] PCP - [facility]03/26/23 Emely Pedersen DO [address] [place] [address] PCP - GeneralFamily Medicine04/25/25 Sima Paul, LES [address] [place] [address] [facility] NurseD[facility] Hospital08/24/23Team MemberRelationshipSpecialtyStart DateEnd Date Yinka Lopez MD [address] [place] [address] PCP - [facility]03/26/23 Emely Pedersen DO [address] [place] [address] PCP - [facility]04/25/25 Sima Paul RN [address] [place] [address] Registered NurseD[facility] Hospital08/24/23 Team Status: Active Member Role Status Dates Fabiola Marinelli MD Attending Provider Active Start: August 09, 2025 Fabiola Marinelli MDReferring ProviderActiveStart: August 09, 2025 Emely Pedersen [facility] Care ProviderActiveStart: August 09, 2025 Team Status: Inactive Member Role Status Dates Emely Pedersen DO Primary Care Provider Active Start: August 09, 2025 End: August 09, 2025Katie Holder APRNAtservando ProviderActiveStart: August 09, 2025 End: August 09, 2025Team MemberRelationshipSpecialtyStart DateEnd Date Yinka Lopez MD [address] [place] [id number] PCP - [facility]03/26/23 Emely Pedersen DO [address] [place] [address] PCP - [facility]04/25/25 Sima Paul RN [address] [place] [address] [facility] NurseD[facility]08/24/23Team MemberRelationshipSpecialtyStart DateEnd Date Yinka Lopez MD [address] [place] [address] PCP - [facility]03/26/23 Emely Pedersen DO [address] [place] [address] PCP - [facility]04/25/25 Sima Paul RN [address] [place] [address] [facility]08/24/23Team MemberRelationshipSpecialtyStart DateEnd Date Yinka Lopez MD [address] [place] [id number] PCP - [facility]03/26/23 Emely Pedersen DO [address] [place] [address] PCP - [facility]04/25/25 Sima Paul RN [address] [place] [address] [facility]08/24/23 Team Status: Inactive Member Role Status Dates Emely Pedersen DO Primary Care Provider Active Start: August 16, 2025 End: August 16, 2025Rene [place] ProviderActiveStart: August 16, 2025 End: August 16, 2025 Team Status: Active Member Role Status Dates Fabiola Marinelli MD Attending Provider Active Start: August 16, 2025 Yocasta Rubalcava ProviderActiveStart: August 16, 2025 Mihai Ferraraseun Care ProviderActiveStart: August 16, 2025 Team MemberRelationshipSpecialtyStart DateEnd Date Yinka Lopez MD [address] [place] [address] PCP - [facility]03/26/23 Emely Pedersen DO [address] [place] [address] PCP - GeneralFamily Medicine04/25/25 Sima Paul RN [address] [place] [address] Registered NurseFamily Phxldlou37/23/23 Goals (unrecognized section and content) Goals may be documented in a n alternate sectionGoals may be documented in an alternate sectionGoals may be documented in an alternate sectionGoals may be documented in an alternate sectionGoals may be documented in an alternate sectionGoals may be documented in an alternate sectionGoals may be documented in an alternate sectionGoals may be documented in an alternate sectionGoals may be documented in an alternate sectionGoals may be documented in an alternate sectionGoals may be documented in an alternate sectionGoals may be documented in an alternate sectionGoals may be documented in an alternate sectionNo InformationNo InformationNo InformationNo InformationNo InformationNo InformationNo InformationNo InformationNo InformationNo InformationNo InformationNo InformationNo Information No data available for this section Source Comments (unrecognize d section and content) In the event this informatio n is protected by the Federal Confidentiality of Alcohol and Drug Abuse Patient Records regulations: The Federal rules restrict any use of the information to criminally investigate or prosecute any alcohol or drug abuse patient.[facility] EastIn the event this information is protected by the Federal Confidentiality of Alcohol and Drug Abuse Patient Records regulations: The Federal rules restrict any use of the information to criminally investigate or prosecute any alcohol or drug abuse patient.[facility] EastIn the event this information is protected by the Federal Confidentiality of Alcohol and Drug Abuse Patient Records regulations: The Federal rules restrict any use of the information to criminally investigate or prosecute any alcohol or drug abuse patient.[facility] EastIn the event this information is protected by the Federal Confidentiality of Alcohol and Drug Abuse Patient Records regulations: The Federal rules restrict any use of the information to criminally investigate or prosecute any alcohol or drug abuse patient.[facility] EastIn the event this information is protected by the Federal Confidentiality of Alcohol and Drug Abuse Patient Records regulations: The Federal rules restrict any use of the information to criminally investigate or prosecute any alcohol or drug abuse patient.[facility] Reason for Visit (unrecogniz ed section and content) ReasonCommentsReceived Outside Medical RecordsReasonCommentsFollow UpReason CommentsFollow-upSpecialtyDiagnoses / ProceduresReferred By ContactReferred To Contact Diagnoses Multiple myeloma not having achieved remission (CMS/HCC) Procedures Theresa Mora MD PhD [address] [place] [id number] [facility] 3 [address] [place] [address] Referral IDStatusReasonStart DateExpiration DateVisits RequestedVisits [id number] / ProceduresReferred By ContactReferred To Contact Diagnoses Multiple myeloma not having achieved remission (CMS/HCC) Supa Lindquist MD PhD [address] [place] [id number] [facility] [address] [place] [address] Referral IDStatusReasonStart DateExpiration DateVisits RequestedVisits [id number]/16/202412/[id number] / ProceduresReferred By ContactReferred To ContactCardiology Diagnoses Multiple myeloma not having achieved remission (CMS/HCC) Procedures Vascular US lower extremity venous duplex right Lisette Perkins, VISUAL MERCHAND[employer]SALES DEVELOPMENT REPRESENTATIVE [address] [place] [phone] Referral IDStatusReasonStart DateExpiration DateVisits RequestedVisits [id number] Review Perform Procedure [id number] / ProceduresReferred By ContactReferred To Contact Diagnoses Multiple myeloma not having achieved remission (Multi) Supa Lindquist MD PhD [address] [place] [id number] [facility] [address] [place] [address] Referral IDStatusReasonStart DateExpiration DateVisits RequestedVisits [id number]/16/20241/[id number]z ReasonCommentsEstablished PatientSpecialtyDiagnoses / ProceduresReferred By ContactReferred To Contact Diagnoses Multiple myeloma not having achieved remission (Multi) Supa Lindquist MD PhD [address] [place] [address] [facility] [address] [place] [phone] Referral IDStatusReasonStart DateExpiration DateVisits RequestedVisits [id number]/9/20245/9/[id number] for painful hemorrhoidsSpecialtyDiagnoses / ProceduresReferred By ContactReferred To ContactGeneral Surgery Diagnoses Bleeding hemorrhoids Procedures PA OFFICE/OUTPATIENT [facility] HIGH MDM 60 MINUTES Letty Newsome, GLASS CUT OFF SUPERVISOR [address] [place] [address] Phone: tel: fax: Andrew Norman, DO [address] [address] Phone: tel: fax: Referral IDStatusReasonStart DateExpiration DateVisits RequestedVisits [id number] [facility] Required /[id number] IDStatusReasonStart DateExpiration DateVisits RequestedVisits [id number]/9/20245/9/[id number] Med RefillReasonCommentsNew Patient VisitReasonOnset DateCommentsMedicare Unyslhmt14/21/2025Med Qlkkrg1601/20/2025ReasonCommentsUTIReasonCommentsOrders ReasonCommentsCoughURIPain With Breathing Scheduled Active and Recently Administ ered Medications (unrecognized section and content) Medication Order/ acyclovir (Zovirax) tablet 400 mg 400 mg, oral, 2 times daily, First dose on Thu08/04/23 at 0045 * 0904 (Given - Provider: Ro Fontanez, RN) * 2010 (Given - Provider: Bhavani Chris RN) * 825 (Given - Provider: Ro Fontanez RN) * 2053 (Given - Provider: Joaquina Cordon, LES) * 0856 (Given - Provider: Carroll Mcmullen, LES) * 2099 (Due) atorvastatin (Lipitor) tablet 80 mg 80 mg, oral, Daily, First dose on Thu08/04/23 at 0900 * 0904 (Given - Provider: Ro Fontanez RN) * 0826 (Given - Provider: Ro Fontanez RN) * 0858 (Given - Provider: Carroll Mcmullen, LES) carvedilol (Coreg) tablet 12.5 mg 12.5 mg, oral, 2 times daily with meals, First dose on Thu08/04/23 at 0800 * 0904 (Given - Provider: Ro Fontanez, RN) * 2010 (Given - Provider: Bhavani Chris RN) * 825 (Given - Provider: Ro Fontanez RN) * 2053 (Given - Provider: Joaquina Cordon, LES) * 0859 (Given - Provider: Carroll Mcmullen, LES) * 2100 (Due) cholecalciferol (Vitamin D-3) capsule 125 mcg 125 mcg, oral, Daily, First dose on Thu08/04/23 at 0900 * 1409 (Given - Provider: Ro Fontanez RN) * 0900 (Given - Provider: Ro Fontanez, RN) * 0859 (Given - Provider: Carroll Mcmullen, LES) cyanocobalamin (Vitamin B-12) tablet 1,000 mcg 1,000 mcg, oral, Daily, First dose on Thu08/04/23 at 1115 * 0904 (Given - Provider: Ro Fontanez RN) * 0826 (Given - Provider: Ro Fontanez RN) * 0858 (Given - Provider: Carroll Mcmullen RN) DULoxetine (Cymbalta) DR capsule 60 mg 60 mg, oral, Daily, First dose on Thu08/04/23 at 0900, Do not crush or chew. * 0904 (Given - Provider: Ro Fontanez RN) * 08 (Given - Provider: Ro Fontanez RN) * 0857 (Given - Provider: Carroll Mcmullen RN) gabapentin (Neurontin) capsule 400 mg 400 mg, oral, 3 times daily, First dose on Thu08/04/23 at 0900, Capsules may be opened and sprinkled on food (eg, applesauce, orange juice, pudding * 09 (Given - Provider: Ro Fontanez RN) * 141 (Given - Provider: Ro Fontanez, LES) * 2010 (Given - Provider: Bhavani Chris RN) * 824 (Given - Provider: Ro Fontanez RN) * 144 (Given - Provider: Ro Fontanez RN) * 2053 (Given - Provider: Joaquina Cordon RN) * 08 (Given - Provider: Carroll Mcmullen RN) * 1500 (Due) * 2100 (Due) insulin lispro (HumaLOG) injection 0-10 Units 0-10 Units, subcutaneous, 3 times daily with meals, First dose on Thu08/04/23 at 0800, Insulin Lispro Corrective Scale #2 Hypoglycemia protocol Call LIP unit(s) if Blood Glucose is between 0 - 70 mg/dL 0 unit(s) if Blood glucose is between 71-150 2 unit(s) if Blood glucose is between 151-200 4 unit(s) if Blood glucose is between 201-250 6 unit(s) if Blood glucose is between 251-300 8 unit(s) if Bl ood glucose is between 301-350 10 unit(s) if Blood glucose is between 351-400 Notify provider unit(s) if Blood Glucose is greater than 400 mg/dL * 0800 (Not Given - Provider: Ro Fontanez RN - Reason: Order parameters not met) * 1200 (Not Given - Provider: Ro Fontanez RN - Reason: Other) * 1700 (Not Given - Provider: Rosario Deras RN - Reason: Order parameters not met - Comment: Glucose 131) * 0800 (Not Given - Provider: Ro Fontanez RN - Reason: Order parameters not met) * 1200 (Not Given - Provider: Ro Fontanez RN - Reason: Order parameters not met) * 1700 (Not Given - Provider: Ro Fontanez RN - Reason: Order parameters not met) * 0800 (Not Given - Provider: Carroll Mcmullen RN - Reason: Order parameters not met) * 1200 (Not Given - Provider: Carroll Mcmullen RN - Reason: Order parameters not met) * 1700 (Due) lisinopril tablet 5 mg 5 mg, oral, Daily, First dose on Thu08/04/23 at 0900 * 0904 (Given - Provider: Ro Fontanez RN) * 0826 (Given - Provider: Ro Fontanez RN) * 0858 (Given - Provider: Carroll Mcmullen RN) magnesium sulfate IV 4 g (COMPLETED) 4 g, intravenous, at 25 mL/hr, Administer over 4 Hours, Once, On Thu08/11/23 at 0445, For 1 dose * 0629 (New Bag - Provider: Joaquina Cordon RN) * 1029 (Stopped - Provider: Ro Fontanez RN) pantoprazole (ProtoNix) EC tablet 40 mg 40 mg, oral, Daily before breakfast, First dose on Thu08/04/23 at 0700, Do not crush, chew, or split. * 0904 (Given - Provider: Ro Fontanez RN) * 0614 (Given - Provider: Bhavani Chris RN) * 0900 (Given - Provider: Carroll Mcmullen RN) yatpuhyiutmw-likoeuhviz-egzjzmaw (Zosyn) IV 3.375 g (CANCELED) 3.375 g, intravenous, at 100 mL/hr, Administer over 0.5 Hours, Every 6 hours, First dose on Thu08/10/23 at 2215, premix bag * 0629 (New Bag - Provider: Joaquina Cordon RN) * 0659 (Stopped - Provider: Ro Fontanez RN) * 1145 (New Bag - Provider: Ro Fontanez RN) * 1215 (Stopped - Provider: Ro Fontanez RN) * 1800 (New Bag - Provider: Rosario Deras, RN) * 1830 (Stopped - Provider: Rosario Deras, RN) * 2358 (New Bag - Provider: Bhavani Chris RN) * 0028 (Stopped - Provider: Bhavani Aries, RN) * 0614 (New Bag - Provider: Bhavani Chris RN) * 0644 (Stopped - Provider: Joaquina Cordon, RN) * 1139 (New Bag - Provider: Ro Fontanez, RN) * 1209 (Stopped - Provider: Ro Fontanez, RN) potassium chloride CR (Klor-Con) ER tablet 10 mEq 10 mEq, oral, Daily, First dose on Thu08/04/23 at 0900, Do not crush, chew, or split. * 0904 (Given - Provider: Ro Fontanez, RN) * 0826 (Given - Provider: Ro Fontanez, RN) * 0859 (Given - Provider: Carroll Mcmullen, LES) sodium chloride 0.9 % bolus 500 mL (COMPLETED) 500 mL, intravenous, at 250 mL/hr, Administer over 2 Hours, Once, On Thu08/11/23 at 1400, For 1 dose * 1400 (New Bag - Provider: Ro Fontanez, RN) * 1455 (Stopped - Provider: Ro Fontanez, RN) * 1456 (Stopped - Provider: Rosario Deras RN) Medication Order//10/2023 acetaminophen (Tylenol) tablet 650 mg 650 mg, oral, Every 6 hours PRN, headaches, Starting on Mela 08/06/23 at 1023, If ordered PRN for pain, nurse is permitted to administer this medication for higher pain scores based on patient preference? Yes * 2010 (Given - Provider: Bhavani Chris RN) albuterol 2.5 mg /3 mL (0.083 %) nebulizer solution 2.5 mg 2.5 mg, nebulization, Every 4 hours PRN, shortness of breath, wheezing, Starting on Thu08/04/23 at 0035 albuterol 2.5 mg /3 mL (0.083 %) nebulizer solution 3 mL 3 mL, nebulization, As needed, For respiratory rate GREATER THAN OR EQUAL TO 28 breaths/minute and/or wheezing., Starting on Thu08/04/23 at 0959, For 1 dose albuterol 90 mcg/actuation inhaler 2 puff 2 puff, inhalation, Every 6 hours PRN, shortness of breath, wheezing, Starting on Thu08/04/23 at 0035, Shake well before use. dextrose 10 % infusion 0.3 g/kg/hr 80.1 kg (240.3 mL/hr), intravenous, Once as needed, For blood glucose less than 70 mg/dL after 30 minutes of intervention. Discontinue once blood glucose reaches 100 mg/dL., Starting on Thu08/04/23 at 0032, For 1 dose, Discontinue once blood glucose reaches 100 mg/dL. dextrose 5 % bolus 500 mL 500 mL, intravenous, at 1,000 mL/hr, Administer over 30 Minutes, As needed, Moderate or severe hypersensitivity reaction, Starting on Thu08/04/23 at 0959, ADMINISTRATION PRECAUTION Administer forSBP LESS THAN 90 mmHg. Only use if Liposomal DOXOrubicin or OXALIplatin were previously infusing. dextrose 50 % injection 25 g 25 g, intravenous, Every 15 min PRN, For blood glucose less than or equal to 40 mg/dL, Starting on Thu08/04/23 at 0032, May repeat until blood glucose level reaches 100 mg/dL or greater. Push 2 - 3 mL/minute if patient has secure IV access. diphenhydrAMINE (BENADryl) injection 50 mg 50 mg, intravenous, Administer over 2 Minutes, As needed, Give first for moderate or severe hypersensitivity reaction, Starting on Thu08/04/23 at 0959, For 1 dose EPINEPHrine (Adrenalin) injection 0.3 mg 0.3 mg, intramuscular, Every 5 min PRN, anaphylaxis, For immediate severe reaction or moderate reaction with worsening symptoms, Starting on Thu08/04/23 at 0959, For 3 doses, Give if moderate reaction progresses to severe reaction or PRN severe reaction. Repeat in 5 minutes as needed if there is noimprovement in symptoms. May repeat for a third dose in 5 minutes as needed if there is no improvement of symptoms. (Maximum dose is 0.9 mg). famotidine PF (Pepcid) injection 20 mg 20 mg, intravenous, Administer over 2 Minutes, As needed, Give third for moderate or severe hypersensitivity reaction, Starting on Thu08/04/23 at 0959, For 1 dose glucagon (Glucagen) injection 1 mg 1 mg, intramuscular, Every 15 min PRN, low blood sugar - see comments, For blood glucose less than or equal to 70 mg/dL and no IV access, Starting on Thu08/04/23 at 0032, Give until blood glucose is 100 mg/dL or greater. If patient DOES NOT HAVE secure IV access & patient is unconscious, NPO sterling unable to eat or drink. heparin flush 100 unit/mL injection 100 Units 100 Units, intra-catheter, As needed, line care, Starting on Mela 08/13/23 at 1217 * 1242 (Due) heparin lock flush (porcine) injection 500 Units (CANCELED) 500 Units (5 mL), intravenous, As needed, line care, Starting on Mela 08/13/23 at 1209 * 1245 (Given - Provider: Carroll Mcmullen, LES) methylPREDNISolone sod suc / (SOLU-Medrol) 40 mg injection 40 mg 40 mg, intravenous, As needed, Give second for moderate or severe hypersensitivity reaction, Starting on Thu08/04/23 at 0959, For 1 dose ondansetron ODT (Zofran-ODT) disintegrating tablet 8 mg 8 mg, oral, Every 8 hours PRN, nausea/vomiting, first line, Starting on Thu08/04/23 at 0035 oxyCODONE (Roxicodone) immediate release tablet 10 mg 10 mg, oral, Every 4 hours PRN, pain severe (7-10), first line, Starting on e 08/04/23 at 0035 * 1149 (Given - Provider: Ro Fontanez RN) * 2117 (Given - Provider: Joaquina Cordon RN) * 020 (Given - Provider: Bhavani Chris RN) * 2001 (Given - Provider: Joaquina Cordon RN) polyethylene glycol (Glycolax, Miralax) packet 17 g 17 g, oral, Daily PRN, constipation, Starting on Thu08/04/23 at 0018, Bowel Regimen - for prevention of constipation. prochlorperazine (Compazine) injection 10 mg 10 mg, intravenous, Every 6 hours PRN, nausea/vomiting, first line, administer if unable to tolerate PO, Starting on Thu08/04/23 at 1300 prochlorperazine (Compazine) tablet 10 mg 10 mg, oral, Every 6 hours PRN, nausea/vomiting, first line, Starting on Thu08/04/23 at 1300 sennosides (Senokot) tablet 17.2 mg 17.2 mg (2 tablet), oral, Nightly PRN, constipation, first line, Starting on Thu08/04/23 at 1104 sodium chloride 0.9 % bolus 500 mL 500 mL, intravenous, at 1,000 mL/hr, Administer over 0.5 Hours, As needed, Moderate or severe hypersensitivity reaction, Starting on Thu08/04/23 at 0959, ADMINISTRATION PRECAUTION Administer for SBP LESS THAN 90 mmHg. Use D5W if Liposomal DOXOrubicin or OXALIplatin was previously infusing. Medication Order11/23/ acyclovir (Zovirax) tablet 400 mg 400 mg, oral, 2 times daily, First dose on Thu11/18/23 at 1430, Coverage: Herpes simplex, InfectionSite: Prophylaxis * 0838 (Given - Provider: Fletcher Rahman RN) * 2027 (Given - Provider: Tawnya Fernandez RN) * 0918 (Given - Provider: Fletcher Rahman RN) * 210 (Given - Provider: Clementina Benito RN) * 0808 (Given - Provider: Fletcher Rahman RN) * 2100 (Due) alum-mag hydroxide-simeth (Mylanta) 200-200-20 mg/5 mL oral suspension 10 mL (COMPLETED) 10 mL, oral, Once, On Thu11/25/23 at 0830, For 1 dose * 0838 (Given - Provider: Fletcher Rahman RN) atorvastatin (Lipitor) tablet 80 mg 80 mg, oral, Daily, First dose on Thu11/18/23 at 1430 * 0838 (Given - Provider: Fletcher Rahman RN) * 0918 (Given - Provider: Fletcher Rahman RN) * 0808 (Given - Provider: Fletcher Rahman, LES) carvedilol (Coreg) tablet 12.5 mg 12.5 mg, oral, 2 times daily with meals, First dose on Thu11/18/23 at 1700 * 0838 (Given - Provider: Fletcher Rahman RN) * 1841 (Given - Provider: Johny Carter RN) * 0922 (Given - Provider: Fletcher Rahman, LES) * 1725 (Given - Provider: Fletcher Rahman RN) * 0807 (Given - Provider: Fletcher Rahman RN) * 1700 (Due) cyanocobalamin (Vitamin B-12) tablet 1,000 mcg 1,000 mcg, oral, Daily, First dose on Thu11/18/23 at 1430 * 0838 (Given - Provider: Fletcher Rahman RN) * 0918 (Given - Provider: Fletcher Rahman RN) * 0808 (Given - Provider: Fletcher Rahman RN) diphenhydrAMINE (BENADryl) capsule 50 mg 50 mg, oral, Once, On Thu11/20/23 at 2100, For 1 dose DULoxetine (Cymbalta) DR capsule 60 mg 60 mg, oral, Daily, First dose on Thu11/18/23 at 1430, Do not crush or chew. * 0838 (Given - Provider: Fletcher Rahman RN) * 0918 (Given - Provider: Fletcher Rahman RN) * 0807 (Given - Provider: Fletcher Rahman, LES) gabapentin (Neurontin) capsule 100 mg 100 mg, oral, 2 times daily, First dose on Thu11/19/23 at 2100, Capsules may be opened and sprinkled on food (eg, applesauce, orange juice, pudding * 0838 (Given - Provider: Fletcher Rahman RN) * 2027 (Given - Provider: Tawnya Fernandez RN) * 0918 (Given - Provider: Fletcher Rahman RN) * 2100 (Given - Provider: Clementina Benito RN) * 0807 (Given - Provider: Fletcher Rahman RN) * 2100 (Due) insulin lispro (HumaLOG) injection 0-5 Units 0-5 Units, subcutaneous, 3 times daily before meals and nightly, First dose on Thu11/18/23 at 1600,Insulin Lispro Corrective Scale #1 Hypoglycemia protocol Call LIP unit(s) if Blood Glucose is between 0 - 70 mg/dL 0 unit(s) if Blood glucose is between 71-150 1 unit(s) if Blood glucose is between 151-200 2 unit(s) if Blood glucose is between 201-250 3 unit(s) if Blood glucose is between 251-300 4unit(s) if Blood glucose is between 301-350 5 unit(s) if Blood glucose is between 351-400 Notify provider unit(s) if Blood Glucose is greater than 400 mg/dL * 0700 (Not Given - Provider: Fletcher Rahman RN - Reason: Order parameters not met - Comment: 149) * 1230 (Not Given - Provider: Fletcher Rahman RN - Reason: Order parameters not met - Comment: 124) * 1600 (Not Given - Provider: Johny Carter RN - Reason: Order parameters not met) * 2100 (Not Given - Provider: Tawnya Fernandez RN - Reason: Order parameters not met - Comment: BG 125) * 0700 (Not Given - Provider: Fletcher Rahman RN - Reason: Order parameters not met - Comment: 86) * 1400 (Not Given - Provider: Fletcher Rahman RN - Reason: Order parameters not met - Comment: 117) * 1700 (Not Given - Provider: Fletcher Rahman RN - Reason: Order parameters not met - Comment: 146) * 2100 (Not Given - Provider: Clementina Benito RN - Reason: Order parameters not met) * 0700 (Not Given - Provider: Fletcher Rahman RN - Reason: Order parameters not met - Comment: 91) * 1100 (Due) * 1600 (Due) * 2100 (Due) lisinopril tablet 5 mg 5 mg, oral, Daily, First dose on Thu11/18/23 at 1430 * 0838 (Given - Provider: Fletcher Rahamn RN) * 0918 (Given - Provider: Fletcher Rahman RN) * 0808 (Given - Provider: Fletcher Rahman RN) magnesium sulfate IV 2 g (COMPLETED) 2 g, intravenous, at 25 mL/hr, Administer over 2 Hours, Once, On Thu11/23/23 at 0330, For 1 dose * 0609 (New Bag - Provider: aTwnya Fernandez RN) * 0809 (Stopped - Provider: Fletcher Rahman RN) metFORMIN (Glucophage) tablet 500 mg 500 mg, oral, 2 times daily with meals, First dose on Thu11/18/23 at 1700 * 0838 (Given - Provider: Fletcher Rahman RN) * 1845 (Given - Provider: Johny Carter RN - Comment: flexible meals) * 0922 (Given - Provider: Fletcher Rahman RN) * 1725 (Given - Provider: Fletcher Rahman RN) * 0807 (Given - Provider: Fletcher Rahman, LES) * 1700 (Due) pantoprazole (ProtoNix) EC tablet 40 mg 40 mg, oral, Daily before breakfast, First dose on Thu11/19/23 at 0800, Do not crush, chew, or split. * 0838 (Given - Provider: Fletcher Rahman RN) * 0922 (Given - Provider: Fletcher Rahman RN) * 0808 (Given - Provider: Fletcher Rahman, LES) potassium chloride 40 mEq in 100 mL IV premix (COMPLETED) 40 mEq, intravenous, at 25 mL/hr, Administer over 4 Hours, Once, On Thu11/24/23 at 0745, For 1 dose, Via central line. For central line administration only. * 0920 (New Bag - Provider: Fletcher Rahman RN) * 1320 (Stopped - Provider: Fletcher Rahman, LES) potassium chloride CR (Klor-Con) ER tablet 10 mEq 10 mEq, oral, Daily, First dose on Thu11/18/23 at 1430, Do not crush, chew, or split. * 0838 (Given - Provider: Fletcher Rahman RN) * 0918 (Given - Provider: Fletcher Rahman, LES) * 0808 (Given - Provider: Fletcher Rahman, LES) sulfamethoxazole-trimethoprim (Bactrim DS) 800-160 mg per tablet 1 tablet 1 tablet, oral, Every Thu/Thu/Thu, First dose on Thu11/18/23 at 1430, Suspected Indication (Select all that apply): Medical Prophylaxis * 1437 (Given - Provider: Fletcher Rahman RN) * 1430 (Due) Medication Order11/23/// albuterol 2.5 mg /3 mL (0.083 %) nebulizer solution 3 mL 3 mL, nebulization, As needed, For respiratory rate GREATER THAN OR EQUAL TO 28 breaths/minute and/or wheezing., Starting on Thu11/18/23 at 1826, For 1 dose albuterol 90 mcg/actuation inhaler 2 puff 2 puff, inhalation, Every 6 hours PRN, shortness of breath, wheezing, Starting on Thu11/18/23 at 1423, Shake well before use. alteplase (Cathflo Activase) injection 2 mg 2 mg, intra-catheter, As needed, line care, Starting on Thu11/18/23 at 1423, Central line port. Dilute each 2 mg vial with 2.2 mL sterile water to give 1 mg/mL final concentration. Swirl gently to mix; do not shake. dextrose 10 % in water (D10W) infusion 0.3 g/kg/hr 77.7 kg (233.1 mL/hr), intravenous, Once as needed, For blood glucose less than 70 mg/dL after 30 minutes of intervention. Discontinue once blood glucose reaches 100 mg/dL., Starting on Thu11/18/23 at 1435, For 1 dose, Discontinue once blood glucose reaches 100 mg/dL. dextrose 5 % in water (D5W) bolus 500 mL, intravenous, at 1,000 mL/hr, Administer over 30 Minutes, As needed, Moderate or severe hypersensitivity reaction, Starting on Thu11/18/23 at 1826, ADMINISTRATION PRECAUTION Administer forSBP LESS THAN 90 mmHg. Only use if Liposomal DOXOrubicin or OXALIplatin were previously infusing. dextrose 50 % injection 25 g 25 g, intravenous, Every 15 min PRN, For blood glucose less than or equal to 40 mg/dL, Starting on Thu11/18/23 at 1435, May repeat until blood glucose level reaches 100 mg/dL or greater. Push 2 - 3 mL/minute if patient has secure IV access. diphenhydrAMINE (BENADryl) injection 50 mg 50 mg, intravenous, Administer over 2 Minutes, As needed, Give first for moderate or severe hypersensitivity reaction, Starting on Thu11/18/23 at 1826, For 1 dose EPINEPHrine HCl (PF) (Adrenalin) injection 0.3 mg 0.3 mg, intramuscular, Every 5 min PRN, anaphylaxis, For immediate severe reaction or moderate reaction with worsening symptoms, Starting on Thu11/18/23 at 1826, For 3 doses, Give if moderate reaction progresses to severe reaction or PRN severe reaction. Repeat in 5 minutes as needed if there is noimprovement in symptoms. May repeat for a third dose in 5 minutes as needed if there is no improvement of symptoms. (Maximum dose is 0.9 mg). famotidine PF (Pepcid) injection 20 mg 20 mg, intravenous, Administer over 2 Minutes, As needed, Give third for moderate or severe hypersensitivity reaction, Starting on Thu11/18/23 at 1826, For 1 dose fluticasone (Flonase) nasal spray 1 spray 1 spray, Each Nostril, Daily PRN, rhinitis, Starting on Thu11/18/23 at 1423, Shake gently. Before first use, prime pump (press 6 times until fine spray appears). After use, clean tip and replace cap. gabapentin (Neurontin) capsule 100 mg 100 mg, oral, 2 times daily PRN, neuropathy, leg pain, Starting on Thu11/18/23 at 1423, Capsules may be opened and sprinkled on food (eg, applesauce, orange juice, pudding glucagon (Glucagen) injection 1 mg 1 mg, intramuscular, Every 15 min PRN, low blood sugar - see comments, For blood glucose less than or equal to 70 mg/dL and no IV access, Starting on Thu11/18/23 at 1435, Give until blood glucose is 100 mg/dL or greater. If patient DOES NOT HAVE secure IV access & patient is unconscious, NPO sterling unable to eat or drink. heparin flush 100 unit/mL syringe 500 Units (COMPLETED) 500 Units (5 mL), intra-catheter, As needed, line care, Starting on Thu11/25/23 at 0817, For 1 dose * 1008 (Given - Provider: Fletcher Rahman RN) methylPREDNISolone sod succinate (PF) (SOLU-Medrol) 40 mg/mL injection 40 mg 40 mg, intravenous, As needed, Give second for moderate or severe hypersensitivity reaction, Starting on Thu11/18/23 at 1826, For 1 dose ondansetron ODT (Zofran-ODT) disintegrating tablet 8 mg 8 mg, oral, Every 8 hours PRN, nausea/vomiting, first line, Starting on Thu11/18/23 at 1423 oxyCODONE (Roxicodone) immediate release tablet 10 mg 10 mg, oral, 4 times daily PRN, pain severe (7-10), first line, Starting on Thu11/18/23 at 1423 * 1021 (Given - Provider: Fletcher Rahman RN) * 1844 (Given - Provider: Johny Carter RN) * 1024 (Given - Provider: Fletcher Rahman RN) * 1725 (Given - Provider: Fletcher Rahman RN) * 2150 (Given - Provider: Clementina Benito RN) * 0807 (Given - Provider: Fletcher Rahman RN) polyethylene glycol (Glycolax, Miralax) packet 17 g 17 g, oral, Daily PRN, constipation, Starting on Thu11/18/23 at 1423, Bowel Regimen - for prevention of constipation. prochlorperazine (Compazine) injection 10 mg 10 mg, intravenous, Every 6 hours PRN, nausea/vomiting, first line, administer if unable to tolerate PO, Starting on Thu11/18/23 at 2100 prochlorperazine (Compazine) tablet 10 mg 10 mg, oral, Every 6 hours PRN, nausea/vomiting, first line, Starting on Thu11/18/23 at 2100 sennosides-docusate sodium (Anusha-Colace) 8.6-50 mg per tablet 2 tablet 2 tablet, oral, Nightly PRN, constipation, first line, Starting on Thu11/18/23 at 1423, Bowel Regimen - for prevention of constipation Hold for loose stools sodium chloride 0.9 % bolus 500 mL 500 mL, intravenous, at 1,000 mL/hr, Administer over 0.5 Hours, As needed, Moderate or severe hypersensitivity reaction, Starting on Thu11/18/23 at 1826, ADMINISTRATION PRECAUTION Administer for SBP LESS THAN 90 mmHg. Use D5W if Liposomal DOXOrubicin or OXALIplatin was previously infusing. FOR RECORDS PERTAINING TO PATIENTS WHO ARE OR HAVE BEEN ENROLLED IN A CHEMICAL DEPENDENCY/SUBSTANCEABUSE PROGRAM, SOME INFORMATION MAY BE OMITTED. This clinical summary was aggregated from multiple sources. Caution should be exercised in using it in the provision of clinical care. This summary normalizes information from multiple sources, and as a consequence, information in this document may materially change the coding, format and clinical context of patient data. In addition, data may be omitted in some cases. CLINICAL DECISIONS SHOULD BE BASED ON THE PRIMARY CLINICAL RECORDS. [employer] [facility]. provides no warranty or guarantee of the accuracy or completeness of information in this document.
--- NOTE | 2025-08-27 18:23 | XR_ITS ---
The [address] [address] Patient Name: NANNETTE PÉREZ MRN: [id number] date: 1955 Sex: F Assigned Patient Location: ED.MAIN Current Patient Location: Accession/Order Number: [id number] Exam Date: 08/27/2025 18:50 Report Date: 08/28/2025 07:55 At the request of: SOLO SIMMONS DO Procedure: XR chest 2V PA AND LATERAL CHEST: CLINICAL HISTORY: SOB, cough COMPARISON: 10/22/2022 An Rjxeox-u-Oqod catheter is present on the right. Slight elevation of the right hemidiaphragm is noted. Minimal scarring or atelectasis is seen. There is no developing consolidation, effusion or pneumothorax. The cardiac, hilar and mediastinal silhouettes are within normal limits. There is no vascular congestion. The visualized bony thorax is intact. Slight dextroscoliotic curvature and minor degenerative changes are present at the spine. There is also mild degenerative change at the shoulders. XR/XR chest 2V IMPRESSION: NO ACUTE CARDIOPULMONARY ABNORMALITY. Impression dictated by: Tracey Bah M.D. 08/28/2025 7:55 AM Dictation Location: [place] [address] Electronically authenticated by: [id number] Y Date: 08/28/2025 07:55
--- NOTE | 2025-08-27 18:23 | ECG_ITS ---
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 Measurements Intervals [place] Rate: 74 P: 34 ND: 162 QRS: 4 QRSD: 78 T: 39 QT: 362 QTc: 390 Interpretive Statements 1100 Sinus rhythm 9110 normal ECG No previous ECG available for comparison Electronically Signed On 08-27-2025 22:22:45 EDT by FOREIGN GARZON M.D.
--- NOTE | 2025-08-27 18:30 | ED.GENADUL1 ---
HPI HPI - General Adult General Chief complaint: Shortness of Breath/Dyspnea Stated complaint: SOB Time Seen by Provider: 08/27/25 18:02 Source: patient Mode of arrival: Wheelchair Limitations: no limitations History of Present Illness HPI narrative: Patient is a 69-year-old female, history significant for multiple myeloma, presenting to the emergency department for evaluation of shortness of breath that began this morning. Patient states she was recently treated for rhinovirus, and is currently on steroids and cefdinir. She states that she has a history of COPD, and feels as though this may be flaring up. She states she has had a cough and has been feeling generally unwell. She denies being on anticoagulation. She denies history of DVT/PE. She denies any abdominal pain, nausea, vomiting. No fevers or chills. Related Data Home Medications ?Medication ?Instructions ?Recorded ?Confirmed acyclovir 400 mg tablet 400 mg PO Q12H 08/27/25 08/27/25 albuterol sulfate 2.5 mg/3 mL 2.5 mg inhalation Q6H PRN 08/27/25 08/27/25 (0.083 %) solution for nebulization shortness of breath or wheezing atorvastatin 40 mg tablet 40 mg PO DAILY 08/27/25 08/27/25 budesonide 160 mcg-glycopyr 9 2 inh inhalation BID 08/27/25 08/27/25 mcg-formot 4.8 mcg/actuation HFA inhaler (Breztri Aerosphere) carvedilol 12.5 mg tablet 12.5 mg PO Q12H 08/27/25 08/27/25 cefdinir 300 mg capsule 300 mg PO DAILY 08/27/25 08/27/25 cetirizine 10 mg tablet 10 mg PO DAILY 08/27/25 08/27/25 fluticasone propionate 50 1 spray intranasal DAILY 08/27/25 08/27/25 mcg/actuation nasal spray,suspension furosemide 20 mg tablet 20 mg PO DAILY 08/27/25 08/27/25 guaifenesin 600 mg tablet, 600 mg PO Q12H 08/27/25 08/27/25 extended release 12 hr magnesium oxide 400 mg (241.3 mg 400 mg PO DAILY 08/27/25 08/27/25 magnesium) tablet metformin 500 mg tablet,extended 500 mg PO DAILY 08/27/25 08/27/25 release 24 hr morphine 15 mg tablet,extended 15 mg PO Q12H 08/27/25 08/27/25 release nitrofurantoin 100 mg PO DAILY 08/27/25 08/27/25 monohydrate/macrocrystals 100 mg capsule omeprazole 40 mg capsule,delayed 40 mg PO DAILY 08/27/25 08/27/25 release ondansetron 8 mg disintegrating 8 mg translingual Q12H PRN nausea 08/27/25 08/27/25 tablet and vomiting oxycodone 10 mg tablet 10 mg PO Q4H PRN pain 08/27/25 08/27/25 pantoprazole 40 mg tablet,delayed 40 mg PO Q12H 08/27/25 08/27/25 release potassium chloride 10 mEq 10 meq PO DAILY 08/27/25 08/27/25 capsule,extended release prednisone 20 mg tablet 20 mg PO DAILY 08/27/25 08/27/25 semaglutide 0.25 mg or 0.5 mg (2 0.25 mg subcut .WEEKLY 08/27/25 08/27/25 mg/3 mL) subcutaneous pen injector (Azaleos) simvastatin 20 mg tablet 20 mg PO BEDTIME 08/27/25 08/27/25 spironolactone 50 mg tablet 50 mg PO DAILY 08/27/25 08/27/25 trazodone 50 mg tablet 50 mg PO BEDTIME PRN insomnia 08/27/25 08/27/25 Allergies Allergy/AdvReac Type Severity Reaction Status Date / Time Unable to Assess Allergy Verified 04/02/25 13:29 Opioid HPI Opioid Management Most Recent Opioid Data: Last Pain Scale 8 04/02/25, 13:24 Review of Systems ROS Status of ROS 10 or more systems reviewed and unremarkable except as noted in history and below [facility] Medical History (Updated 07/19/25 @ 20:58 by AIDE Rios) COPD (chronic obstructive pulmonary disease) ?J44.9 - Chronic obstructive pulmonary disease, unspecified (ICD-10) Multiple myeloma ?C90.00 - Multiple myeloma not having achieved remission (ICD-10) Social History Little interest or pleasure in doing things: not at all Feeling down, depressed, or hopeless: not at all Exam Narrative Exam Narrative: CONSTITUTIONAL: Well-appearing, speaking full sentences, answering questions and following commands appropriately SKIN: Was warm and dry. EYES: Sclerae white. EARS, NOSE, THROAT: Moist oral mucosa. RESPIRATORY: There is mild to moderate amount of expiratory wheezes bilaterally. No use of accessory muscles. CARDIOVASCULAR: Normal rate and regular rhythm. There is no S3, S4, murmur, rub. GASTROINTESTINAL: Abdomen is soft, nontender, nondistended. No rebound tenderness or guarding. MUSCULOSKELETAL: There symmetric, bilateral lower extremity pitting edema. No overlying cellulitic changes or erythema/induration/drainage. NEUROLOGIC: Patient is awake and alert. Facies were symmetrical. Constitutional Vital Signs, click to edit/add: Last Vital Signs Temp 98 F 08/27/25 18:19 Pulse 79 08/27/25 18:19 Resp 19 08/27/25 18:19 BP 120/64 08/27/25 18:19 Pulse Ox 98 08/27/25 18:19 O2 Del Method Room Air 08/27/25 18:19 Course Vital Signs Vital signs: Vital Signs Temperature 98 F 08/27/25 18:19 Pulse Rate 79 08/27/25 18:19 Respiratory Rate 19 08/27/25 18:19 Blood Pressure 120/64 08/27/25 18:19 Pulse Oximetry 98 08/27/25 18:19 Oxygen Delivery Method Room Air 08/27/25 18:19 Temperature 98 F 08/27/25 18:19 Pulse Rate 79 08/27/25 18:19 Respiratory Rate 19 08/27/25 18:19 Blood Pressure 120/64 08/27/25 18:19 Pulse Oximetry 98 08/27/25 18:19 Oxygen Delivery Method Room Air 08/27/25 18:19 Medical Decision Making [facility] Narrative Medical decision making narrative: Patient is a 69-year-old female, history of COPD and multiple myeloma, presenting to the emergency department for evaluation of shortness of breath that began this morning. Her vital signs on arrival are within normal limits. She is afebrile and hemodynamically stable. She is saturating 98% on room air with expiratory wheezes bilaterally. Differential diagnose includes COPD, viral URI, pneumothorax, ACS, symptomatic anemia, or other electrolyte/metabolic derangement. I did consider pneumonia, however the patient is on cefdinir and Bactrim 3 times weekly, making this of lower likelihood. She has normal vital signs without tachycardia or hypoxia, making PE less likely. However, she does have a history of muscle myeloma, so D-dimer was obtained to help rule this out. IV was established and laboratory studies were obtained. Viral swabs were ordered. She was treated symptomatically with DuoNebs nebulized. 12 Lead EKG: Normal sinus rhythm at a rate of 74. Normal axis. No ST segment elevations. QRS, NE, and QTc interval within normal limits. Final impression: normal sinus rhythm without evidence of acute myocardial ischemia My shift is now coming to an end. Care will be transferred to Dr. Barnes pending workup. ECG Data Attestation: I personally reviewed and interpreted this ECG as follows: Discharge Plan Discharge Patient Disposition: Still a Patient
[2025-08-27 18:46] LABS: Hematocrit 32.2 % (36.0-48.0); Hemoglobin 11.0 g/dL (12.0-16.0); Mean Corpuscular HGB Conc 34.2 g/dL (29.9-35.2); Mean Corpuscular Hemoglobin 33.2 pg (26.7-34.0); Mean Corpuscular Volume 97.3 fL (81.0-99.0); Platelet Count 44 10^3/uL (150-450); Red Blood Count 3.31 10^6/uL (4.20-5.40); White Blood Count 1.5 10^3/uL (4.0-11.0)
[2025-08-27] MEDS: IPRATROPIUM/ALBUTEROL SULFATE 3 ML AMPUL.NEB 9 ML IH (19:01)
[2025-08-27 19:05] LABS: Alanine Aminotransferase 53 U/L (14-59); Albumin Globulin Ratio 1.3; Albumin Level 3.2 g/dL (3.4-5.0); Alkaline Phosphatase 128 U/L (46-116); Anion Gap 9.2; Aspartate Amino Transferase 41 U/L (15-37); Basophils Abs Manual 0.00 10^3/uL (0.00-0.10); Basophils Percent Manual 0.0 % (0.2-2.0); Blood Urea Nitrogen 23.0 mg/dL (7.0-18.0); Calcium 8.7 mg/dL (8.5-10.1); Carbon Dioxide 29.7 mmol/L (21.0-32.0); Chloride 99 mmol/L (98-107); Eosinophils Absolute Manual 0.00 10^3/uL (0.00-0.70); Eosinophils Percent Manual 0.0 % (0.9-7.0); Estimated GFR (African America >60 (>=60 mL/min/1.73m^2); Estimated GFR (Non-African Ame 57 (>=60 mL/min/1.73m^2); Globulin 2.5 g/dL; Glucose 109 mg/dL (74-106); Lymphocytes Absolute Manual 0.15 10^3/uL (1.20-3.80); Lymphocytes Percent Manual 10.0 % (20.5-60.0); Monocytes Absolute Manual 0.21 10^3/uL (0.30-0.80); Monocytes Percent Manual 14.0 % (1.7-12.0); Potassium 3.9 mmol/L (3.5-5.1); Segmented Neut Absolute Manual 1.05 10^3/uL (1.4-6.5); Segmented Neutrophils % Manual 70.0 (43.0-75.0); Sodium 134 mmol/L (136-145); Total Protein 5.7 g/dL (6.4-8.2)
[2025-08-27 19:06] LABS: Atypical Lymphocytes % Manual 4.0 %; Atypical Lymphocytes Abs Man 0.06; Hypersegmented Neutrophils 2+; Metamyelocytes Absolute Manual 0.03; Toxic Granulation 1+
--- NOTE | 2025-08-27 19:10 | PC.NURSE ---
lab called with martha 1.13
[2025-08-27 19:12] LABS: NT Pro B Type Natriuretic Pept 338.0 pg/mL (<=900.0)
[2025-08-27 19:32] LABS: SARS-CoV-2 Ag NEGATIVE (NEGATIVE)
== END 2025-08-27 21:45 | disposition home or self-care (01) ==
PROVIDERS: Student in an Organized Health Care Education/Training Program; Emergency Provider Internal Medicine; PCP Student in an Organized Health Care Education/Training Program
DX: J44.1 Chronic obstructive pulmonary disease with (acute) exacerbation (principal); R06.02 Shortness of breath; C90.00 Multiple myeloma not having achieved remission
CPT/HCPCS: 36415; 71046; 71275; 80053; 83880; 84484; 85007; 85027; 85378; 87420; 87804; 87811; 93005; 94640; 99285; Q9967

== ENCOUNTER 2025-08-28 10:41 | Inpatient (IN) | payer MEDICARE, MEDICAID, SELFPAY ==
--- OUTSIDE RECORDS SUMMARY | 2025-08-17 16:20 | XMS_ITS | Encounter Summary ---
Author Organization [facility] Address [address] [place] [address] Care Team Providers Care Product Support Consultant Name Role Phone Vitaliy Thomson MD Primary Care Provider [phone] Daniella Lima [employer] Unavailable [phone] Source Comments In the event this information is protected by the Federal Confidentiality of Alcohol and Drug AbusePatient Records regulations: The Federal rules restrict any use of the information to criminally investigate or prosecute any alcohol or drug abuse patient.[facility] Reason for Referral * Outpatient Procedure (Routine) - New RequestSpecialtyDiagnoses / Procedures Referred By ContactReferred To [facility] Diagnoses Aneurysm of ascending aorta without rupture Essential hypertension Hyperlipidemia, unspecified hyperlipidemia type Obesity, Class III, BMI 40-49.9 (morbid obesity) (HCC) 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 (nonalcoholic steatohepatitis) (HCC) Smoldering myeloma Procedures ECG COMPLETE ECG ROUTINE ECG W/LEAST 12 LDS W/I&[place] [address] [place] [address] Phone: tel: fax: [facility] [address] [place] [address] [place] [address] Referral IDStatusReasonStart DateExpiration DateVisits RequestedVisits [id number] Request Auto-Generated Referral Reason for Visit * ReasonCommentsCardiology Follow Up Encounter Details DateTypeDepartmentCare Team (Latest Contact Info)Edmphvhnkqv52/16/2025 4:20 PM EDTOffice Visit Cardiology [address] [place] [address] [place] [address] [place] [address] Aneurysm of ascending aorta without rupture (Primary Dx); Essential hypertension; Hyperlipidemia, unspecified hyperlipidemia type; Obesity, Class III, BMI >= 40; 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 (nonalcoholic steatohepatitis) (HCC); Smoldering myeloma Social History Tobacco UseTypesPacks/DayYears UsedDateSmoking Tobacco: IxtzsaPbzgylxrrm222 07/25/1986 - 07/25/2009Smokeless Tobacco: NeverAlcohol UseStandard Drinks/Week CommentsNo0 (1 standard drink = 0.6 oz pure alcohol)PHQ-2AnswerDate RecordedPHQ2 Jbcpi978Area Deprivation IndexAnswerDate RecordedNational Score (1-100), lower number is lower zwxj846904/13/2023State Score (1-10), lower number is lower ljdx5503Data from: https://www.neighborhoodatlas.medicine.[facility].edu/. Last address used for z[address]fsqc[address]dp[address] 3CommentsNoSex and Gender InformationValueDate RecordedSex Assigned at BirthNot on fileLegal Sex Iwlmep5210/03/2012 8:01 AM ESTGender IdentityNot on fileSexual OrientationNot on filedocumented as of this encounter Last Filed Vital Signs Vital SignReadingTime TakenCommentsBlood Qfpmzxhx775/7610 4:10 PM EDT Cfxhl243208/17/2025 4:10 PM EDTTemperature--Respiratory Rate--Oxygen Saturation-- Inhaled Oxygen Concentration--Eoekwo85.8 kg (186 lb 15.2 oz)08/17/2025 4:10 PM BOYMnebms331.5 cm (5' 2 )08/17/2025 4:10 PM EDTBody Mass Index34.191 4:10 PM EDTdocumented in this encounter Functional Status * Are you deaf or do you have serious difficulty hearing?AnswerDate of TfeqxldjmdZwokivIc07/26/2019 3:12 PM Edilberto Chester RN * Are you blind or do you have serious difficulty seeing, even when wearing glasses?AnswerDate of TwpzkmhvwjPezsiuZj88/26/2019 3:12 PM Edilberto Chester RN * Do you have serious difficulty walking or climbing stairs?AnswerDate of AxvjrxesipGgwvvpZh73/26/2019 3:12 PM Edilberto Chester RN * Do you have difficulty dressing or bathing?AnswerDate of AssessmentAuthorNo 04/27/2019 3:12 PM Edilberto Chester RN * Because of a physical, mental, or emotional condition, do you have difficulty doing errands alone such as visiting a doctor's office or shopping?AnswerDate of ZwfextqxuuZaukmfUf47/26/2019 3:12 PM Edilberto Chestre RN documented as of this encounter Mental Status * Because of a physical, mental, or emotional condition, do you have serious difficulty concentrating, remembering, or making decisions?AnswerEntry Date JfkpeqUc81/26/2019 3:12 PM Edilberto Chester RN documented in this encounter Progress Notes * Yocasta Ledesma MA - 08/17/2025 4:35 PM EDT Hi Lift Operator present: Yocasta Ledesma MA * Juan J Mendez MD - 08/17/2025 4:18 PM EDT SUBJECTIVE: Mojgan Euceda is a 69 year old female. Patient presents with: Cardiology Follow Up Mojgan Euceda was referred by Self HPI: The patient is a pleasant, 69-year-old female, who underwent extensive evaluation at the [facility], April 2019, after presenting with chest discomfort. Testing included a CTA of the ascending aorta which revealed a maximum dimension of 4.1 cm. Stress PET Testing revealed reversible ischemic territory, followed by heart catheterization, whichrevealed mild diffuse disease of all 3 coronaries, which was treated medically. Echocardiogram, June 2020, revealed a maximum ascending aorta dimension of 4.3 cm, in the settingof a trileaflet aortic valve, with a trace aortic valve regurgitation. CTA of the ascending aorta, July 2021, revealed a maximum ascending aortic dimension of 4.1 cm. Repeat echocardiogram, August 2021, was essentially unchanged compared to June 2020. The patient has recently changed chemotherapy agents and an outside echocardiogram was obtained, which confirmed an ejection fraction of 60-65%. Repeat echocardiogram, April 2023, revealed a maximum ascending aorta dimension of 4.2 cm, with an ejection fraction of 70% and a trileaflet aortic valve demonstrating a trace aortic valve regurgitation. Echocardiogram, August 2025, revealed a maximum ascending aortic dimension of 4.3 cm, with an ejection fraction of 55% and no regional wall motion abnormalities. The trileaflet aortic valve demonstrates mild regurgitation. CARDIAC HISTORY: SYMPTOMS: Chest pain/discomfort: Yes, Palpitations:No, Arrhythmia: No Dyspnea: Yes, Dyspnea at rest: No, Nocturnal dyspnea: Yes Orthopnea: No, Diaphoresis: No, Dizziness: No, Syncope: No, Edema: No, Nocturia: Yes, Impaired exercise tolerance: Yes, Claudication:No CONDITIONS: Hypertension: Yes, Heart failure:No, [place] Heart Association Functional Classification: Class II, Atrial fibrillation:No, History of myocardial infarction/angina: Yes, History of CABG/PCI:No, Valvular heart disease: No, Cardiomyopathy: No, Aortic diseases: Yes, Peripheral vascular disease: No, Hi story of cerebrovascular accident: No, History of pulmonary embolism No, History of DVT No. Historyof rheumatic fever: No, History of transient ischemic attacks: No, Congenital heart disease: No, Pericarditis: No, Pericardial Effusion: No CORONARY RISK FACTORS: Family history of coronary artery disease No, Tobacco use No: Remote, Sedentary lifestyle Yes, Hypertension Yes, Hyperlipidemia Yes, Diabetes mellitus Yes, Obesity Yes, Peripheral vascular disease No. HISTORIES: FAMILY HISTORY FAMILY HISTORY Problem Relation Age of Onset Cancer Mother colon at age 77 Coronary Artery Disease Mother Emphysema Father Heart Father PAST MEDICAL HISTORY PAST MEDICAL HISTORY Diagnosis Date Ascending aortic aneurysm (HCC) Chronic ischemic heart disease, unspecified Ischemic heart disease COPD (chronic obstructive pulmonary disease) (HCC) Diabetes type 2, controlled (HCC) Diaphragmatic hernia without mention of obstruction or gangrene Hiatal hernia Dysthymic disorder Depression (non-psychotic) Esophageal reflux Gastroesophageal reflux Hyperlipidemia Hypertension MGUS (monoclonal gammopathy of unknown significance) Thrombocytopenia (HCC) Unspecified essential hypertension Essential hypertension PAST SURGICAL HISTORY PAST SURGICAL HISTORY Procedure Laterality Date BONE MARROW ASP BX CHOLECYSTECTOMY Social History Socioeconomic History Marital status: Spouse name: Not on file Number of children: Not on file Years of education: Not on file Highest education level: Not on file Occupational History Not on file Social Needs Financial resource strain: Not on file Food insecurity: Worry: Not on file Inability: Not on file Transportation needs: Medical: Not on file Non-medical: Not on file Tobacco Use Smoking status: Former Smoker Packs/day: 2.00 Years: 23.00 Pack years: 46 Types: Cigarettes Quit date: 07/25/2009 Years since quittin.8 Smokeless tobacco: Never Used Substance and Sexual Activity Alcohol use: No Drug use: Never Sexual activity: Not on file Lifestyle Physical activity: Days per week: Not on file Minutes per session: Not on file Stress: Not on file Relationships Social connections: Talks on phone: Not on file Gets together: Not on file Attends alevism service: Not on file Active member of club or organization: Not on file Attends meetings of clubs or organizations: Not on file Relationship status: Not on file Intimate partner violence: Fear of current or ex partner: Not on file Emotionally abused: Not on file Physically abused: Not on file Forced sexual activity: Not on file Other Topics Concerns: Not on file Social History Narrative Not on file Occupation: Retired ALLERGIES ALLERGIES Allergen Reactions Amoxicillin Swelling Moxifloxacin Hives Vibramycin [Doxycyc* Swelling Voltaren [Diclofena* Hives REVIEW OF SYSTEMS: Constitutional: Fatigue: Yes, Weight loss: No, Weight gain: No, Fever: No, Chills: No Eyes: Blurred or Reduced Vision:No Ears: Hearing Loss:No Nose,Throat: Epistaxis:No, Bleeding gums:No Respiratory: Dyspnea:Yes, Cough:No, Hemoptysis:No, Wheezing:No, Pleuritic pain:No, Sleep Apnea:No, COPD:Yes, Asthma:No Gastrointestinal: Hematemesis:No, Blood in stool:No, Abdominal pain:No, Nausea and/or vomiting:No Genitourinary: Dysuria:No, Hematuria:No, Renal insufficiency:No, Pregnancies:Yes: details: 5 uncomplicated, BPH:No, Erectile Dysfunction:No Hematologic: Anemia:Yes, Bruises easily:Yes, Bleeds easily:Yes. History of thrombocytopenia History of Cancer: No Musculoskeletal: Muscle pain:No, Arthritis/Arthralgia:No Skin: Rash:No, Pruritus:No Neurologic: Headache:No, Dizziness:No, Seizures:No, Dementia:No Psychiatric: Anxiety:No, Depression:No, Over the past 2 weeks have you felt down, depressed or hopeless?:No, Over the past 2 weeks have you felt little interest or pleasure in doing things?:No Endocrine: Polyphagia:No, Polydipsia:No, Polyuria:No, Goiter:No, Hyper/hypothyroidism:No, Dyslipidemia:No Allergic, Immunology: Urticaria:No, Collagen vascular disease:No Other: The rest of the review of systems is unremarkable and negative or non-contributory. OBJECTIVE: VITALS: Blood pressure 112/76, pulse 82, height 157.5 cm (5' 2 ), weight 84.8 kg (186 lb 15.2 oz). PHYSICAL EXAMINATION: Physical examination was unchanged from previous, see below. GENERAL APPEARANCE: Appears Healthy:Yes, Obese:Yes, Acute distress:No, Appearance consistent with age:Yes, Responds appropriately: Yes MENTAL STATUS: Alert:Yes, Cooperative:Yes, Pleasant:Yes, Affect: normal EYES: Conjunctiva/corneas normal:Yes, PERRL:Yes, Scleral icterus:No, Xanthelasma:No HEAD, NECK: Good oral hygiene:Yes, Oral mucosa normal:Yes, Jugular venous distention:No, Hepatojugular reflux:No, Thyromegaly:No, Carotid endarterectomy:No,Thyroidectomy :No RESPIRATORY:Chest movement symmetrical:Yes, Respiratory effort normal:Yes, Percussion of chest normal:Yes, Breath sounds normal:Yes, Crackles:No, Rales:No, Rhonchi:No, Wheezing:No, Pleural friction rub:No, Evidence of pacemaker/ICD:No, Median sternotomy scar:No, Sternal instability:No CARDIAC: [place] beat not localized, Cardiac thrill:No, Heart rate normal:Yes, Heart rhythm normal:Yes, S1 normal:Yes, S2 normal:Yes, S3 ausculated:No, S4 ausculated:No, Gallop ausculated:No, Heart murmur:Yes, 1/6 systolic, Prosthetic valve click:No, Pericardial friction rub:No ABDOMINAL:Abdomen soft, non-tender. BS normal. No masses or organomegaly. and positive findings: Morbid obese VASCULAR/EXTREMITIES:Radial pulse normal:Yes, Carotid pulse normal:Yes, Carotid bruit:No, Abdominalaorta palpable:No, Abdominal aortic bruit:No, Femoral pulse normal:Yes, Femoral bruit:No, Dorsalis pedis pulse present:Yes, Posterior tibial pulse present:Yes, Popliteal pulse:Yes, Varicose veins:No,Leg edema:No, Pedal edema:No NEUROLOGIC: Grossly non-focal:Yes MUSCULOSKELETAL: Muscle strength normal:Yes, Joint range of motion normal:Yes SKIN: Clubbing:No, Cyanosis:No, Pallor:No, Diaphoresis:No, Stasis dermatitis/post phlebitic changes:No, Cutaneous xanthoma:No REVIEWED: ECG: YES As above Echo: No Cath: YES As above Stress: YES As above PREVENTATIVE CARE: GENERAL: Non-smoker Discussed aspirin treatment. DIET/EXERCISE: Recommended weight loss. Discussed weight management stratagies. Recommended regular physical activity. Discussed low sodium diet. Discussed low cholesterol diet. PATIENT EDUCATION: Continue with medications as directed. Prescription risks and side effects discussed. Instructed on chest pain. ASSESSMENT/PLAN/RECOMMENDATIONS: The patient remains stable at today's visit, with no symptomatic or clinical suggestion of aortic valve deterioration or ascending aortic pathology. After reviewing her current medication regimen, I see no reason to make any changes. The patient will follow in the office in April and a repeat echocardiogram will be obtained in April 2027. Portions of the encounter note have been copied from a previous note, dated 07/18/2024, which has been updated where appropriate and reflects my current medical decision making from today. I spent a total of 35 minutes on the date of the service which included preparing to see the patient, krgn-xu-jayw patient care, completing clinical documentation, performing a medically appropriate examination, counseling and educating the patient/family/caregiver and ordering medications, tests or procedures. Aneurysm of ascending aorta without rupture (primary encounter diagnosis) Essential hypertension Hyperlipidemia, unspecified hyperlipidemia type Obesity, class iii, bmi >= 40 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nails (nonalcoholic steatohepatitis) (hcc) Smoldering myeloma Juan J Mendez MD documented in this encounter Plan of Treatment DateTypeDepartmentCare Team (Latest Contact Info)Cdbenhoxhse02/22/2026 2:00 PM EDTOffice Visit Cardiology [address] [place] [address] [place] [address] [place] [address] Return in about 8 months (around 04/17/2026).documented as of this encounter Goals GoalPatient Goal TypeAssociated ProblemsRecent ProgressPatient-Stated?Author Blood Pressure < 130/80 Blood Yttoiyat305/76(08/17/2025 4:10 PM EDT)Juan J Perez, MDdocumented as of this encounter Procedures Procedure NamePriorityDate/TimeAssociated DiagnosisCommentsECG COMPLETERoutine 08/17/2025 4:08 PM EDT Aneurysm of ascending aorta without rupture Essential hypertension Hyperlipidemia, unspecified hyperlipidemia type Obesity, Class III, BMI >= 40 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 (nonalcoholic steatohepatitis) (HCC) Smoldering myeloma documented in this encounter Results * ECG COMPLETE (08/17/2025 4:08 PM EDT)ComponentValueRef RangeTest Method Analysis TimePerformed AtPathologist SignatureVentricular Urgw58LWFBTQEL AND VASCULAR INSTITUTEAtrial Alju04XJJZDRWU AND VASCULAR INSTITUTEP-R Hishmerf948 msHEART AND VASCULAR INSTITUTEQRS Eradtcee62dpWIWXF AND VASCULAR INSTITUTEQT Zepxaikb803mmJHHKI AND VASCULAR INSTITUTEQTC Calculation (Jessi)422msHEART AND VASCULAR INSTITUTECalculated P Pztz22vommedwXXXIU AND VASCULAR INSTITUTE Calculated R Purdy-4degreesHEART AND VASCULAR INSTITUTECalculated T Axis36 degreesHEART AND VASCULAR INSTITUTESpecimen (Source)Anatomical Location / LateralityCollection Method / VolumeCollection TimeReceived Time08/17/2025 4:08 PM EDT Impressions [facility] [place] - 08/19/2025 11:45 AM EDT NORMAL SINUS RHYTHM Confirmed by ARNULFO HENDERSON M.D. ([id number]) on 08/19/2025 11:45:15 AM Narrative [facility] [place] - 08/19/2025 11:45 AM EDT NAME : MOJGAN EUCEDA PID : [id number] : 1955 Gender : Female Race : ORD : [id number] Procedure Date : Aug 17 2025 16:08:55 Edit Date : Aug 19 2025 11:45:21 Diagnosis: NORMAL SINUS RHYTHM Confirmed by ARNULFO HENDERSON M.D. ([id number]) on 08/19/2025 11:45:15 AM Test Reason : I71.21 Aneurysm of ascending aorta without rupture Location : 192 : AVCRD ?? Overread By : ARNULFO HENDERSON M.D. Edited By : ARNULFO HENDERSON M.D. Referred By : JUAN J MENDEZ Acquired by : , Authorizing ProviderResult TypeResult StatusMark Roberto Mendez MDEKGFinal Result Performing OrganizationAddressCity/State/[facility] CodePhone Number [facility] [place] [address] [phone] documented in this encounter Visit Diagnoses Diagnosis Aneurysm of ascending aorta without rupture- Primary Essential hypertension Unspecified essential hypertension Hyperlipidemia, unspecified hyperlipidemia type Obesity, Class III, BMI >= 40 Morbid obesity 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 (nonalcoholic steatohepatitis) (HCC) Other chronic nonalcoholic liver disease Smoldering myeloma Multiple myeloma, without mention of having achieved remission documented in this encounter Care Teams Team MemberRelationshipSpecialtyStart DateEnd Date Vitaliy Thomson MD [address] [place] [address] [facility] - [facility] Daniella Lima NP [address] [place] [address] ReferringFamily Medicine04/18/19documented as of this encounter
--- OUTSIDE RECORDS SUMMARY | 2025-08-22 14:20 | XMS_ITS | Encounter Summary ---
Author Organization [facility] Address [address] [place] [address] Care Team Providers Care Light Bulb Assembler Name Role Phone Vitaliy Thomson MD Unavailable [phone] Sima Paul RN Unavailable [phone] Power Swain DO Primary Care Provider [phone] Reason for Visit * ReasonCommentsCoughURIPain With Breathing Encounter Details DateTypeDepartmentCare Team (Latest Contact Info)Epsmqdjuncp54/21/2025 2:20 PM EDTFollow-Up [facility] [address], [place] [address] [place] [id number] Power Swain DO [address] [facility] [place] [address] [place] [address] COPD with acute exacerbation (HCC) (Primary Dx); Pharyngitis, unspecified etiology Social History Tobacco UseTypesPacks/DayYears UsedDateSmoking Tobacco: FormerCigarettes Smokeless Tobacco: FormerAlcohol UseStandard Drinks/WeekCommentsNever0 (1 standard drink = 0.6 oz pure alcohol)cafffeine intake: 1-2 cups per dayAUDIT-C AnswerDate RecordedQ1: How often do you have a drink containing alcohol?Never 06/15/2025Q2: How many drinks containing alcohol do you have on a typical day when you are drinking?Patient does not drink06/15/2025Q3: How often do you have six or more drinks on one occasion?Never06/15/2025PHQ-2AnswerDate Recorded Patient Health Questionnaire-2 Hjroy298CommentsNoSex and Gender InformationValueDate RecordedSex Assigned at BirthNot on fileLegal SexFemale 01/14/2023 6:38 PM EDTGender IdentityNot on fileSexual OrientationNot on file OccupationIndustryJob Start DateJob End DateRetiredNot on fileNot on fileNot on filedocumented as of this encounter Last Filed Vital Signs Vital SignReadingTime TakenCommentsBlood Sjjbsypt916/6608/22/2025 2:32 PM EDT Unmls768908/22/2025 2:32 PM GWTWspbbmfasbu89.5 ??C (97.7 ??F)08/22/2025 2:32 PM EDTRespiratory Hhpa3540 2:32 PM EDTOxygen Mybuoqrcbj36%08/22/2025 2:32 PM EDTInhaled Oxygen Concentration--Fhofex62.5 kg (193 lb)08/22/2025 2:32 PM EDT Fjdesd935 cm (5' 3 )08/22/2025 2:32 PM EDTBody Mass Index34.191 2:32 PM EDTdocumented in this encounter Progress Notes * Power Swain, DO - 08/22/2025 2:20 PM EDT Images from the original note were not included. FAMILY MEDICINE NOTE Chief Complaint: Cough, URI, and Pain With Breathing HPI: URI: Historian of HPI: patient Mojgan Snider is a 69 y.o. female who presents today to the office with the following complaints and denials which have been present for 3 day(s) C/O Denies Symptom Comments [] [x] Runny Nose [] [x] Difficulty Swallowing [] [x] Sore Throat [x] [] Cough [x] [] Ear Pain Left ear [] [x] Fever [] [x] Chills [x] [] Nasal Congestion [x] [] Myalgia [] [x] Sinus Pain [] [x] Sinus Pressure [x] [] Headache Additional Comments: pt has taken Tylenol OTC medication with relief. Has been using nebulizer breathing treatments withlittle relief. SUBJECTIVE: Past Medical History SURGICAL/SOCIAL ALLERGIES: Medical History[1] Surgical History[2] Social History[3] Allergies[4] OBJECTIVE: 08/22/2025 2:32 PM 06/15/2025 8:47 AM 05/15/2025 10:02 AM Vitals BMI 34.19 kg/m2 34.01 kg/m2 35.25 kg/m2 BSA (m2) 1.97 m2 1.97 m2 2 m2 Systolic 116 118 112 Diastolic 66 78 60 Heart Rate 79 81 84 SpO2 98 % 98 % 98 % Temp 97.7 ??F 98 ??F 98.2 ??F Resp 20 20 20 Height (in) 5' 3 5' 3 5' 3 Weight (lb) 193 192 199 Physical Exam Constitutional: Appearance: Normal appearance. HENT: Head: Normocephalic and atraumatic. Nose: Comments: Erythema b/l Mouth/Throat: Mouth: Mucous membranes are moist. Pharynx: Posterior oropharyngeal erythema and postnasal drip present. Tonsils: Tonsillar exudate present. Comments: Petechiae on palate close to uvula Eyes: Conjunctiva/sclera: Conjunctivae normal. Cardiovascular: Rate and Rhythm: Normal rate and regular rhythm. Heart sounds: No murmur heard. No friction rub. No gallop. Pulmonary: Effort: No respiratory distress. Breath sounds: Wheezing present. No rhonchi or rales. Comments: Dry cough throughout exam Lymphadenopathy: Cervical: No cervical adenopathy. Neurological: Mental Status: She is alert. Psychiatric: Mood and Affect: Mood normal. Behavior: Behavior normal. ASSESSMENT AND PLAN: Mojgan was seen today for cough, uri and pain with breathing. Diagnoses and all orders for this visit: COPD with acute exacerbation (HCC) (Primary) - predniSONE (Deltasone) 20 MG tablet; Take two tablets (40 mg) daily for five days, then take one tablet (20 mg) daily for five days. Take with food. - guaiFENesin (Mucinex) 600 MG 12 hr tablet; Take 1 tablet (600 mg) by mouth in the morning and 1 tablet (600 mg) before bedtime. Do all this for 14 days. Do not crush, chew, or split. - POCT rapid strep A manually resulted - PNEUMONIA (HTRX); Future - PNEUMONIA (HTRX) Pharyngitis, unspecified etiology - PNEUMONIA (HTRX); Future - PNEUMONIA (HTRX) COPD exacerbation / bronchitis: - COPD exacerbation/bronchitis suspected. Pneumonia less likely based on clear lung sounds. - Prescribed short course of oral steroids. Continue nebulizer use every 4 hours as needed. Continue Breztri therapy. Prescribed Mucinex. If symptoms persist by end of week, chest x-ray to be performed. Pharyngitis - Sore throat with findings suggestive of possible strep pharyngitis. In-house strep test negative.Awaiting further throat swab results to rule out other bacterial etiologies. - Ordered throat health tracts test for further evaluation. No change in antibiotic regimen until results available. Patient's Medications New Prescriptions GUAIFENESIN (MUCINEX) 600 MG 12 HR TABLET Take 1 tablet (600 mg) by mouth in the morning and 1 tablet (600 mg) before bedtime. Do all this for 14 days. Do not crush, chew, or split. PREDNISONE (DELTASONE) 20 MG TABLET Take two tablets (40 mg) daily for five days, then take one tablet (20 mg) daily for five days. Take with food. Previous Medications ACYCLOVIR (ZOVIRAX) 400 MG TABLET Take 400 mg by mouth in the morning and 400 mg before bedtime. ALBUTEROL (2.5 MG/3ML) 0.083% NEBULIZER SOLUTION Take 3 mL (2.5 mg) by nebulization every 6 (six) hours if needed for wheezing ATORVASTATIN (LIPITOR) 40 MG TABLET Take 1 tablet (40 mg) by mouth Daily WWLAQVL-OSUJDVDWOFE-ZBYOACXGID (BREZTRI AEROSPHERE) 160-9-4.8 MCG/ACT AEROSOL Inhale 2 puffs in themorning and 2 puffs before bedtime. CARVEDILOL (COREG) 12.5 MG TABLET Take 1 tablet (12.5 mg) by mouth in the morning and 1 tablet (12.5 mg) in the evening. Take with meals. CEFDINIR (OMNICEF) 300 MG CAPSULE TAKE 1 CAPSULE BY MOUTH TWICE A DAY FOR 1 WEEK THEN 1 CAPSULE ONCE A DAY FOR 2 MONTHS CETIRIZINE (ZYRTEC) 10 MG TABLET Take 1 tablet (10 mg) by mouth at bedtime CHOLECALCIFEROL (VITAMIN D-3) 125 MCG (5000 UT) CAPSULE TAKE 1 CAPSULE BY MOUTH EVERY DAY FOR 90 DAYS CYANOCOBALAMIN (VITAMIN B-12) 1000 MCG SUBLINGUAL TABLET DISSOLVE 1 TABLET UNDER THE TONGUE ONCE A DAY EPINEPHRINE (EPIPEN) 0.3 MG/0.3ML INJECTION SYRINGE Inject 0.3 mL (0.3 mg) as directed 1 (one) timefor 1 dose use as directed for allergic reaction and then call 911 FLUTICASONE (FLONASE) 50 MCG/ACT NASAL SPRAY ADMINISTER 1 SPRAY INTO EACH NOSTRIL 1 TIME EACH DAY AT THE SAME TIME FOSFOMYCIN (MONUROL) 3 G PACKET MIX 1 PACKET INTO LIQUID AND TAKE BY MOUTH ONCE EVERY 5 DAYS FREESTYLE LANCETS USE 1 LANCET EVERY DAY [...] TABLET Take 400 mg by mouth Daily MELATONIN TABLET Take 2 mg by mouth at bedtime METFORMIN XR (GLUCOPHAGE-XR) 500 MG 24 HR TABLET Take 1 tablet (500 mg) by mouth Daily MORPHINE CR (MS CONTIN) 15 MG 12 HR TABLET Take 15 mg by mouth in the morning and 15 mg before bedtime. NALOXONE (NARCAN) 4 MG/0.1 ML NASAL SPRAY Administer 4 mg into affected nostril(s) OMEPRAZOLE (PRILOSEC) [address] CAPSULE Take 1 capsule (40 mg) by mouth in the morning. Take before meals. Do not crush or chew. ONDANSETRON ODT (ZOFRAN-ODT) 8 MG DISINTEGRATING TABLET Take 8 mg by mouth every 8 (eight) hours ifneeded for nausea or vomiting. OXYCODONE (ROXICODONE) 10 MG IMMEDIATE RELEASE TABLET TAKE 1 TABLET BY MOUTH FOUR TIMES A DAY NEEDED PANTOPRAZOLE (PROTONIX) 40 MG EC TABLET Take 40 mg by mouth in the morning and 40 mg before bedtime. POTASSIUM CHLORIDE ER (MICRO-K) 10 MEQ ER CAPSULE Take 10 mEq by mouth in the morning. PROCHLORPERAZINE (COMPAZINE) 10 MG TABLET Take 10 mg by mouth every 8 (eight) hours if needed RESPIRATORY THERAPY SUPPLIES (NEBULIZER/TUBING/MOUTHPIECE) KIT 1 kit See administration instructions SEMAGLUTIDE,0.25 OR 0.5MG/DOS, (OZEMPIC, 0.25 OR 0.5 MG/DOSE,) 2 MG/3ML SOLUTION PEN-INJECTOR Inject 0.5 mg under the skin 1 (one) time per week SIMVASTATIN (ZOCOR) 20 MG TABLET Take 1 tablet (20 mg) by mouth at bedtime SPIRONOLACTONE (ALDACTONE) 50 MG TABLET Take 1 tablet (50 mg) by mouth Daily SULFAMETHOXAZOLE-TRIMETHOPRIM (BACTRIM DS) 800-160 MG PER TABLET TAKE 1 TABLET BY MOUTH EVERY THURSDAY, THURSDAY AND THURSDAY TECLISTAMAB-CQYV 30 MG/3ML SOLUTION Modified Medications No medications on file Discontinued Medications DULOXETINE (CYMBALTA) [address] CAPSULE Take 1 capsule (60 mg) by mouth Daily Do not crush or chew. LANSOPRAZOLE (PREVACID) [address] CAPSULE Take 1 capsule (30 mg) by mouth Daily Do not crush or chew. Follow up in about 4 weeks (around 09/19/2025) for chronic recheck. This note was prepared in part with the assistance of dictation and AI technologies; minor errors or omissions may be present. Power Swain DO [1] Past Medical History: Diagnosis Date Acid reflux Acute right-sided low back pain with right-sided sciatica Aneurysm of ascending aorta Anxiety Appendicitis Arthritis Atherosclerosis of abdominal aorta Chicken pox Cholelithiasis Cirrhosis (HCC) nonalcoholic COPD (chronic obstructive pulmonary disease) (HCC) COPD exacerbation CTS (carpal tunnel syndrome) Depression Diabetes (HCC) Endometriosis Family history of cancer Family history of colon cancer Fibromyalgia Hematoma Hemorrhoids History of being hospitalized 04/2019 [facility] 4.1 CM, CIRRHOSIS OF THE LIVER History of smoking Hyperlipidemia Hypertension Leukopenia Moderate persistent asthma with exacerbation (HCC) Morbid obesity (CMS-HCC) Myeloma (HCC) with thrombocytopenia Neuropathy Osteoarthrosis Rectal bleeding Rectal fissure Rectal pain Thoracic aortic aneurysm Thrombocytopenia UTI (urinary tract infection) 12/2022 Visual loss w/ corrective lenses [2] Past Surgical History: Procedure Laterality Date APPENDECTOMY BONE MARROW BIOPSY several CARPAL TUNNEL RELEASE CHOLECYSTECTOMY COLONOSCOPY 05/01/2015, completed by Dr. Cody 09/15/2018 CT GUIDED RF ABLATION LIVER 01/05/2025 CT GUIDED RF ABLATION LIVER 01/05/2025 CT GUIDED RF ABLATION LIVER 06/22/2025 CT GUIDED RF ABLATION LIVER 06/22/2025 ELBOW SURGERY HERNIA REPAIR HYSTERECTOMY KNEE SURGERY Bilateral knee arthroscopy TENDON REPAIR US GUIDED RF ABLATION LIVER 01/05/2025 US GUIDED RF ABLATION LIVER 01/05/2025 US GUIDED RF ABLATION LIVER 06/22/2025 US GUIDED RF ABLATION LIVER 06/22/2025 WRIST SURGERY [3] Social History Tobacco Use Smoking status: Former Types: Cigarettes Smokeless tobacco: Former Substance Use Topics Alcohol use: Never Comment: cafffeine intake: 1-2 cups per day Drug use: Never [4] Allergies Allergen Reactions Latex Unknown, Hives and Rash Tetracycline Unknown, Hives and Rash Antazoline Itching Other Reaction(s): Unknown Diclofenac Unknown and Hives Diclofenac Sodium Hives Doxycycline Unknown and Swelling Erythromycin Hives Erythromycin Base Hives Other Dizziness Other Reaction(s): dizziness Quinolones Hives Other Reaction(s): Hives, Unknown Reaction Other Reaction(s): Unknown Reaction Wound Dressing Adhesive Unknown Amoxicillin Swelling and Rash Moxifloxacin Hives, Rash and Unknown documented in this encounter Plan of Treatment DateTypeDepartmentCare Team (Latest Contact Info)Prrsrdinisn77/10/2025 10:00 AM ESTOffice Visit [facility] [address], [address] [phone] Power Swain DO [address] [facility] [address] [place] [address] documented as of this encounter Procedures Procedure NamePriorityDate/TimeAssociated DiagnosisCommentsPOCT RAPID STREP A Ahjwuyz8308/22/2025 3:10 PM EDT COPD with acute exacerbation (HCC) PNEUMONIA (HTRX)Btfzxip8308/22/2025 3:00 PM EDT COPD with acute exacerbation (HCC) Pharyngitis, unspecified etiology documented in this encounter Results * POCT rapid strep A manually resulted (08/22/2025 3:10 PM EDT)ComponentValueRef RangeTest MethodAnalysis TimePerformed AtPathologist SignatureRapid Strep A ScreenNegativeNegative, None DetectedSpecimen (Source)Anatomical Location / LateralityCollection Method / VolumeCollection TimeReceived GbzgWyem87/21/2025 3:10 PM EDT Narrative Authorizing ProviderResult TypeResult StatusDaniel Brynn DOPOINT OF CARE TEST ENTER/EDIT ORDERABLESFinal Result * (ABNORMAL) PNEUMONIA (HTRX) (08/22/2025 3:00 PM EDT)ComponentValueRef Range Test MethodAnalysis TimePerformed AtPathologist SignatureSTREPTOCOCCUS PYOGENES (GROUP A STREP) (RESPIRATORY)019.961 - 24.689 ppm08/23/2025 6:49 AM EDTHealthTrackRx at LabPortSTREPTOCOCCUS PYOGENES (GROUP A STREP) (RESPIRATORY)Not Dtqjrhaz11.961 - 24.689 ppm08/23/2025 6:49 AM EDT [facility] at LabPortSTREPTOCOCCUS PNEUMONIAE (RESPIRATORY)019.961 - 24.689 ppm08/23/2025 6:49 AM EDTHealthTrackRx at LabPortSTREPTOCOCCUS PNEUMONIAE (RESPIRATORY)Not Jybhtyku49.961 - 24.689 ppm08/23/2025 6:49 AM EDT [facility] at LabPortSTREPTOCOCCUS AGALACTIAE (GROUP B STREP) (RESPIRATORY) 019.961 - 24.689 ppm08/23/2025 6:49 AM EDTHealthTrackRx at LabPort STREPTOCOCCUS AGALACTIAE (GROUP B STREP) (RESPIRATORY)Not Bdcrarsf43.961 - 24.689 ppm08/23/2025 6:49 AM EDTHealthTrackRx at LabPortSTAPHYLOCOCCUS AUREUS (RESPIRATORY)019.961 - 24.689 ppm08/23/2025 6:49 AM EDTHealthTrackRx at LabPortSTAPHYLOCOCCUS AUREUS (RESPIRATORY)Not Dkepeaoh89.961 - 24.689 ppm 08/23/2025 6:49 AM EDTHealthTrackRx at LabPortSERRATIA MARCESCENS (RESPIRATORY)019.961 - 24.689 ppm08/23/2025 6:49 AM EDTHealthTrackRx at LabPortSERRATIA MARCESCENS (RESPIRATORY)Not Kbbmlsnp59.961 - 24.689 ppm 08/23/2025 6:49 AM EDTHealthTrackRx at LabPortRESPIRATORY SYNCYTIAL VIRUS (RESPIRATORY)023.000 - 31.953 ppm08/23/2025 6:49 AM EDTHealthTrackRx at LabPortRESPIRATORY SYNCYTIAL VIRUS (RESPIRATORY)Not Qcpkpjoi79.000 - 31.953 ppm08/23/2025 6:49 AM EDTHealthTrackRx at LabPortPSEUDOMONAS AERUGINOSA (RESPIRATORY)31.113(A)19.961 - 24.689 ppm08/23/2025 6:49 AM EDTHealthTrackRx at LabPortPSEUDOMONAS AERUGINOSA (RESPIRATORY)Detected(A)19.961 - 24.689 ppm 08/23/2025 6:49 AM EDTHealthTrackRx at LabPortPROTEUS MIRABILIS, VULGARIS (RESPIRATORY)019.961 - 24.689 ppm08/23/2025 6:49 AM EDTHealthTrackRx at LabPortPROTEUS MIRABILIS, VULGARIS (RESPIRATORY)Not Ltvbneib96.961 - 24.689 ppm08/23/2025 6:49 AM EDTHealthTrackRx at LabPortPARAINFLUENZA VIRUS (TYPES 1, 2, 3 ,4) (RESPIRATORY)023.000 - 31.487 ppm08/23/2025 6:49 AM EDTHealthTrackRx at LabPortPARAINFLUENZA VIRUS (TYPES 1, 2, 3 ,4) (RESPIRATORY)Not Detected 23.000 - 31.487 ppm08/23/2025 6:49 AM EDTHealthTrackRx at LabPortMYCOPLASMA PNEUMONIAE (RESPIRATORY)019.961 - 24.689 ppm08/23/2025 6:49 AM EDT [facility] at LabPortMYCOPLASMA PNEUMONIAE (RESPIRATORY)Not Ygdklzos01.961 - 24.689 ppm08/23/2025 6:49 AM EDTHealthTrackRx at LabPortMORAXELLA CATARRHALIS (RESPIRATORY)019.961 - 24.689 ppm08/23/2025 6:49 AM EDT [facility]MORAXELLA CATARRHALIS (RESPIRATORY)Not Ebvhojxw42.961 - 24.689 ppm08/23/2025 6:49 AM EDTHealthTrackRx at LabPortLEGIONELLA PNEUMOPHILA (RESPIRATORY)019.961 - 24.689 ppm08/23/2025 6:49 AM EDT [facility] at LabPortLEGIONELLA PNEUMOPHILA (RESPIRATORY)Not Hebzsibh43.961 - 24.689 ppm08/23/2025 6:49 AM EDTHealthTrackRx at [facility] HillKLEBSIELLA PNEUMONIAE, OXYTOCA (RESPIRATORY)019.961 - 24.689 ppm08/23/2025 6:49 AM EDT [facility] at LabPortKLEBSIELLA PNEUMONIAE, OXYTOCA (RESPIRATORY)Not Xgmbjyrk90.961 - 24.689 ppm08/23/2025 6:49 AM EDTHealthTrackRx at [facility] INFLUENZA VIRUS, A, B (RESPIRATORY)023.000 - 29.803 ppm08/23/2025 6:49 AM EDT [facility] HillINFLUENZA VIRUS, A, B (RESPIRATORY)Not Qpvxffns02.000 - 29.803 ppm08/23/2025 6:49 AM EDTHealthTrackRx at [facility] HillHUMAN METAPNEUMOVIRUS (RESPIRATORY)023.000 - 33.630 ppm08/23/2025 6:49 AM EDT [facility] MET[facility]NEUMOV[facility]US (RESPIRATORY)Not Htaahpkh41.000 - 33.630 ppm08/23/2025 6:49 AM EDTHealthTrackRx at [facility] HillHAEMOPHILUS INFLUENZAE (RESPIRATORY)019.961 - 24.689 ppm08/23/2025 6:49 AM EDT [facility] at LabPortHAEMOPHILUS INFLUENZAE (RESPIRATORY)Not Wwmwnvyu15.961 - 24.689 ppm08/23/2025 6:49 AM EDTHealthTrackRx at LabPortESCHERICHIA COLI (RESPIRATORY)019.961 - 24.689 ppm08/23/2025 6:49 AM EDTHealthTrackRx at LabPortESCHERICHIA COLI (RESPIRATORY)Not Pymbeoum26.961 - 24.689 ppm08/23/2025 6:49 AM EDTHealthTrackRx at LabPortENTEROVIRUS D68 (RESPIRATORY)023.000 - 32.268 ppm08/23/2025 6:49 AM EDTHealthTrackRx at LabPortENTEROVIRUS D68 (RESPIRATORY)Not Jnsdilxf97.000 - 32.268 ppm08/23/2025 6:49 AM EDT [facility] at LabPortOTHER CORONAVIRUSES (229E, NL63, HKU1, OC43) (RESPIRATORY)023.000 - 30.477 ppm08/23/2025 6:49 AM EDTHealthTrackRx at LabPortOTHER CORONAVIRUSES (229E, NL63, HKU1, OC43) (RESPIRATORY)Not Detected 23.000 - 30.477 ppm08/23/2025 6:49 AM EDTHealthTrackRx at LabPortCHLAMYDIA PNEUMONIAE (RESPIRATORY)019.961 - 24.689 ppm08/23/2025 6:49 AM EDT [facility] at LabPortCHLAMYDIA PNEUMONIAE (RESPIRATORY)Not Nadghaqc38.961 - 24.689 ppm08/23/2025 6:49 AM EDTHealthTrackRx at LabPortBORDETELLA PERTUSSIS, PARAPERTUSSIS, BRONCHISEPTICA (RESPIRATORY)019.961 - 24.689 ppm08/23/2025 6:49 AM EDTHealthTrackRx at LabPortBORDETELLA PERTUSSIS, PARAPERTUSSIS, BRONCHISEPTICA (RESPIRATORY)Not Koioedxu12.961 - 24.689 ppm08/23/2025 6:49 AM EDTHealthTrackRx at LabPortACINETOBACTER BAUMANNII (RESPIRATORY)019.961 - 24.689 ppm08/23/2025 6:49 AM EDTHealthTrackRx at LabPortACINETOBACTER BAUMANNII (RESPIRATORY)Not Yfbwvpug55.961 - 24.689 ppm08/23/2025 6:49 AM EDT [facility] at LabPortHTRX COVID-19 LWVAUJLOJLF947.000 - 31.947 ppm 08/23/2025 6:49 AM EDTHealthTrackRx at [facility]Southlake [facility] HealthHTRX COVID-19 CORONAVIRUSNot Mwbhwayv60.000 - 31.947 ppm08/23/2025 6:49 AM EDTHealthTrackRx at [facility]Southlake [facility] RHINOVIRUS/ENTEROVIRUS (RESPIRATORY)29.8(A)23.000 - 30.000 ppm08/23/2025 6:49 AM EDTHealthTrackRx at LabSouthlake [facility] For Mental HealthRHINOVIRUS/ENTEROVIRUS (RESPIRATORY)Detected(A) 23.000 - 30.000 ppm08/23/2025 6:49 AM EDTHealthTrackRx at LabSouthlake Center For Mental HealthADENOVIRUS HADV-B (RESPIRATORY)023.000 - 31.833 ppm08/23/2025 6:49 AM EDTHealthTrackRx at LabSouthlake [facility] For Mental HealthADENOVIRUS HADV-B (RESPIRATORY)Not Dxinogqy31.000 - 31.833 ppm 08/23/2025 6:49 AM EDTHealthTrackRx at LabSouthlake Center For Mental HealthENTEROBACTER CLOACAE COMPLEX, KLEBSIELLA (ENTEROBACTER) AEROGENES (HZQNBKPT551.961 - 24.689 ppm08/23/2025 6:49 AM EDTHealthTrackRx at LabPortENTEROBACTER CLOACAE COMPLEX, KLEBSIELLA (ENTEROBACTER) AEROGENES (RESPIRATNot Vqkzetkg29.961 - 24.689 ppm08/23/2025 6:49 AM EDTHealthTrackRx at LabPortSpecimen (Source)Anatomical Location / LateralityCollection Method / VolumeCollection TimeReceived TimePulmonary 08/22/2025 3:00 PM EDT1 10:26 PM EDT Narrative Authorizing ProviderResult TypeResult StatusDaniel Brynn DOLAB BLOOD ORDERABLES Edited Result - FinalPerforming OrganizationAddressCity/State/ZIP CodePhone Number [facility] [address] [address] documented in this encounter Visit Diagnoses Diagnosis COPD with acute exacerbation (HCC)- Primary Pharyngitis, unspecified etiology documented in this encounter Additional Health Concerns AssessmentNoted TimePHQ-9 Depression Total Score: 9:00 AM EST documented as of this encounter Care Teams Team MemberRelationshipSpecialtyStart DateEnd Date Vitaliy Thomson MD [address] [place] [address] PCP - [facility]03/26/23 Power Swain DO [address] [address] PCP - GeneralFamily Medicine04/25/25 Sima Paul, LES [address] [place] [address] Registered NurseFamily Mckbqrzw85/23/23documented as of this encounter
--- OUTSIDE RECORDS SUMMARY | 2025-08-22 14:20 | XMS_ITS | Encounter Summary ---
Author Organization [facility] Address [address] [place] [address] Care Team Providers Care Foundry Process Engineer Name Role Phone Vitaliy Thomson MD Unavailable [phone] Sima Paul RN Unavailable [phone] Power Swain DO Primary Care Provider [phone] Reason for Visit * ReasonCommentsCoughURIPain With Breathing Encounter Details DateTypeDepartmentCare Team (Latest Contact Info)Frnhddxlnvk62/21/2025 2:20 PM EDTFollow-Up Formerly [facility] [address], [address] [place] [phone] Power Swain DO [address] [facility] [address] [place] [address] COPD with acute exacerbation (HCC) (Primary Dx); [...] on one occasion?Never06/15/2025PHQ-2AnswerDate Recorded Patient Health Questionnaire-2 Rrsof488CommentsNoSex and Gender InformationValueDate RecordedSex Assigned at BirthNot on fileLegal SexFemale 01/14/2023 6:38 PM EDTGender IdentityNot on fileSexual OrientationNot on file OccupationIndustryJob Start DateJob End DateRetiredNot on fileNot on fileNot on filedocumented as of this encounter Last Filed Vital Signs Vital SignReadingTime TakenCommentsBlood Ozompfvm560/6608/22/2025 2:32 PM EDT Qmhpt531808/22/2025 2:32 PM GZTMjojgvtxfhp85.5 ??C (97.7 ??F)08/22/2025 2:32 PM EDTRespiratory Lhdm1596 2:32 PM EDTOxygen Dvfepqffer72%08/22/2025 2:32 PM EDTInhaled Oxygen Concentration--Iorbtw02.5 kg (193 lb)08/22/2025 2:32 PM EDT Elfkxr132 cm (5' 3 )08/22/2025 2:32 PM EDTBody [...] 1 tablet (40 mg) by mouth Daily ADGLFJV-FNLMUKZVALB-XVWXHORSBX (BREZTRI AEROSPHERE) 160-9-4.8 MCG/ACT AEROSOL Inhale 2 [...] Plan of Treatment DateTypeDepartmentCare Team (Latest Contact Info)Jbkfroltwnf19/10/2025 10:00 AM ESTOffice Visit [facility] [address], [address] [phone] Power Swain DO [address] [facility] [address] [place] [address] documented as of this encounter Procedures Procedure NamePriorityDate/TimeAssociated DiagnosisCommentsPOCT RAPID STREP A Zcehkvb6908/22/2025 3:10 PM EDT COPD with acute exacerbation (HCC) PNEUMONIA (HTRX)Jhtvuzx3008/22/2025 3:00 PM EDT COPD with acute exacerbation (HCC) Pharyngitis, unspecified etiology documented in this encounter Results * POCT rapid strep A manually resulted (08/22/2025 3:10 PM EDT)ComponentValueRef RangeTest MethodAnalysis TimePerformed AtPathologist SignatureRapid Strep A ScreenNegativeNegative, None DetectedSpecimen (Source)Anatomical Location / LateralityCollection Method / VolumeCollection TimeReceived YdlaUtix66/21/2025 3:10 PM EDT Narrative Authorizing ProviderResult TypeResult StatusDaniel Brynn DOPOINT OF CARE TEST ENTER/EDIT ORDERABLESFinal Result * (ABNORMAL) PNEUMONIA (HTRX) (08/22/2025 3:00 PM EDT)ComponentValueRef Range Test MethodAnalysis TimePerformed AtPathologist SignatureSTREPTOCOCCUS PYOGENES (GROUP A STREP) (RESPIRATORY)019.961 - 24.689 ppm08/23/2025 6:49 AM EDTHealthTrackRx at LabPortSTREPTOCOCCUS PYOGENES (GROUP A STREP) (RESPIRATORY)Not Zouyfirx41.961 - 24.689 ppm08/23/2025 6:49 AM EDT [facility] at LabPortSTREPTOCOCCUS PNEUMONIAE (RESPIRATORY)019.961 - 24.689 ppm08/23/2025 6:49 AM EDTHealthTrackRx at LabPortSTREPTOCOCCUS PNEUMONIAE (RESPIRATORY)Not Qquzbfkn68.961 - 24.689 ppm08/23/2025 6:49 AM EDT [facility] at LabPortSTREPTOCOCCUS AGALACTIAE (GROUP B STREP) (RESPIRATORY) 019.961 - 24.689 ppm08/23/2025 6:49 AM EDTHealthTrackRx at LabPort STREPTOCOCCUS AGALACTIAE (GROUP B STREP) (RESPIRATORY)Not Stwjqubg81.961 - 24.689 ppm08/23/2025 6:49 AM EDTHealthTrackRx at LabPortSTAPHYLOCOCCUS AUREUS (RESPIRATORY)019.961 - 24.689 ppm08/23/2025 6:49 AM EDTHealthTrackRx at LabPortSTAPHYLOCOCCUS AUREUS (RESPIRATORY)Not Mktivbkd60.961 - 24.689 ppm 08/23/2025 6:49 AM EDTHealthTrackRx at LabPortSERRATIA MARCESCENS (RESPIRATORY)019.961 - 24.689 ppm08/23/2025 6:49 AM EDTHealthTrackRx at LabPortSERRATIA MARCESCENS (RESPIRATORY)Not Hbrremij85.961 - 24.689 ppm 08/23/2025 6:49 AM EDTHealthTrackRx at LabPortRESPIRATORY SYNCYTIAL VIRUS (RESPIRATORY)023.000 - 31.953 ppm08/23/2025 6:49 AM EDTHealthTrackRx at LabPortRESPIRATORY SYNCYTIAL VIRUS (RESPIRATORY)Not Uhrrjvbf96.000 - 31.953 ppm08/23/2025 6:49 AM EDTHealthTrackRx at LabPortPSEUDOMONAS AERUGINOSA (RESPIRATORY)31.113(A)19.961 - 24.689 ppm08/23/2025 6:49 AM EDTHealthTrackRx at LabPortPSEUDOMONAS AERUGINOSA (RESPIRATORY)Detected(A)19.961 - 24.689 ppm 08/23/2025 6:49 AM EDTHealthTrackRx at LabPortPROTEUS MIRABILIS, VULGARIS (RESPIRATORY)019.961 - 24.689 ppm08/23/2025 6:49 AM EDTHealthTrackRx at LabPortPROTEUS MIRABILIS, VULGARIS (RESPIRATORY)Not Wdfczovo44.961 - 24.689 ppm08/23/2025 6:49 AM EDTHealthTrackRx at LabPortPARAINFLUENZA VIRUS (TYPES 1, 2, 3 ,4) (RESPIRATORY)023.000 - 31.487 ppm08/23/2025 6:49 AM EDTHealthTrackRx at LabPortPARAINFLUENZA VIRUS (TYPES 1, 2, 3 ,4) (RESPIRATORY)Not Detected 23.000 - 31.487 ppm08/23/2025 6:49 AM EDTHealthTrackRx at LabPortMYCOPLASMA PNEUMONIAE (RESPIRATORY)019.961 - 24.689 ppm08/23/2025 6:49 AM EDT [facility] at LabPortMYCOPLASMA PNEUMONIAE (RESPIRATORY)Not Iyffsdyc75.961 - 24.689 ppm08/23/2025 6:49 AM EDTHealthTrackRx at LabPortMORAXELLA CATARRHALIS (RESPIRATORY)019.961 - 24.689 ppm08/23/2025 6:49 AM EDT [facility] CenterM[facility]A CATARRHALIS (RESPIRATORY)Not Eprzxybu16.961 - 24.689 ppm08/23/2025 6:49 AM EDTHealthTrackRx at LabPortLEGIONELLA PNEUMOPHILA (RESPIRATORY)019.961 - 24.689 ppm08/23/2025 6:49 AM EDT [facility] at LabPortLEGIONELLA PNEUMOPHILA (RESPIRATORY)Not Pdfksywj65.961 - 24.689 ppm08/23/2025 6:49 AM EDTHealthTrackRx at [facility] CenterKLEBSIELLA PNEUMONIAE, OXYTOCA (RESPIRATORY)019.961 - 24.689 ppm08/23/2025 6:49 AM EDT [facility] at LabPortKLEBSIELLA PNEUMONIAE, OXYTOCA (RESPIRATORY)Not Tinocovj35.961 - 24.689 ppm08/23/2025 6:49 AM EDTHealthTrackRx at [facility] INFLUENZA VIRUS, A, B (RESPIRATORY)023.000 - 29.803 ppm08/23/2025 6:49 AM EDT [facility] CenterINFLUENZA VIRUS, A, B (RESPIRATORY)Not Tnqgxgik05.000 - 29.803 ppm08/23/2025 6:49 AM EDTHealthTrackRx at [facility] CenterHUMAN METAPNEUMOVIRUS (RESPIRATORY)023.000 - 33.630 ppm08/23/2025 6:49 AM EDT [facility]MAN METAPNEUMOVIRUS (RESPIRATORY)Not Gnswekso28.000 - 33.630 ppm08/23/2025 6:49 AM EDTHealthTrackRx at [facility] CenterHAEMOPHILUS INFLUENZAE (RESPIRATORY)019.961 - 24.689 ppm08/23/2025 6:49 AM EDT [facility] at LabPortHAEMOPHILUS INFLUENZAE (RESPIRATORY)Not Xiwvekgi17.961 - 24.689 ppm08/23/2025 6:49 AM EDTHealthTrackRx at LabPortESCHERICHIA COLI (RESPIRATORY)019.961 - 24.689 ppm08/23/2025 6:49 AM EDTHealthTrackRx at LabPortESCHERICHIA COLI (RESPIRATORY)Not Tkvyycdg61.961 - 24.689 ppm08/23/2025 6:49 AM EDTHealthTrackRx at LabPortENTEROVIRUS D68 (RESPIRATORY)023.000 - 32.268 ppm08/23/2025 6:49 AM EDTHealthTrackRx at LabPortENTEROVIRUS D68 (RESPIRATORY)Not Agopwjxn83.000 - 32.268 ppm08/23/2025 6:49 AM EDT [facility] at LabPortOTHER CORONAVIRUSES (229E, NL63, HKU1, OC43) (RESPIRATORY)023.000 - 30.477 ppm08/23/2025 6:49 AM EDTHealthTrackRx at LabPortOTHER CORONAVIRUSES (229E, NL63, HKU1, OC43) (RESPIRATORY)Not Detected 23.000 - 30.477 ppm08/23/2025 6:49 AM EDTHealthTrackRx at LabPortCHLAMYDIA PNEUMONIAE (RESPIRATORY)019.961 - 24.689 ppm08/23/2025 6:49 AM EDT [facility] at LabPortCHLAMYDIA PNEUMONIAE (RESPIRATORY)Not Rcaabvuf66.961 - 24.689 ppm08/23/2025 6:49 AM EDTHealthTrackRx at LabPortBORDETELLA PERTUSSIS, PARAPERTUSSIS, BRONCHISEPTICA (RESPIRATORY)019.961 - 24.689 ppm08/23/2025 6:49 AM EDTHealthTrackRx at LabPortBORDETELLA PERTUSSIS, PARAPERTUSSIS, BRONCHISEPTICA (RESPIRATORY)Not Marjbnwv11.961 - 24.689 ppm08/23/2025 6:49 AM EDTHealthTrackRx at LabPortACINETOBACTER BAUMANNII (RESPIRATORY)019.961 - 24.689 ppm08/23/2025 6:49 AM EDTHealthTrackRx at LabPortACINETOBACTER BAUMANNII (RESPIRATORY)Not Zwzafajc66.961 - 24.689 ppm08/23/2025 6:49 AM EDT [facility] at LabPortHTRX COVID-19 CXPUBVFDXFD893.000 - 31.947 ppm 08/23/2025 6:49 AM EDTHealthTrackRx at LabSchneck Medical CenterHTRX COVID-19 CORONAVIRUSNot Rssqmifn14.000 - 31.947 ppm08/23/2025 6:49 AM EDTHealthTrackRx at [facility]Sch[facility] RHINOVIRUS/ENTEROVIRUS (RESPIRATORY)29.8(A)23.000 - 30.000 ppm08/23/2025 6:49 AM EDTHealthTrackRx at LabSchneck Medical CenterRHINOVIRUS/ENTEROVIRUS (RESPIRATORY)Detected(A) 23.000 - 30.000 ppm08/23/2025 6:49 AM EDTHealthTrackRx at LabSchneck Medical CenterADENOVIRUS HADV-B (RESPIRATORY)023.000 - 31.833 ppm08/23/2025 6:49 AM EDTHealthTrackRx at LabSchneck Medical CenterADENOVIRUS HADV-B (RESPIRATORY)Not Wnrziywu54.000 - 31.833 ppm 08/23/2025 6:49 AM EDTHealthTrackRx at LabSchneck Medical CenterENTEROBACTER CLOACAE COMPLEX, KLEBSIELLA (ENTEROBACTER) AEROGENES (DFTTOUYJ600.961 - 24.689 ppm08/23/2025 6:49 AM EDTHealthTrackRx at LabPortENTEROBACTER CLOACAE COMPLEX, KLEBSIELLA (ENTEROBACTER) AEROGENES (RESPIRATNot Jrmuaxpe51.961 - 24.689 ppm08/23/2025 6:49 AM EDTHealthTrackRx at LabPortSpecimen (Source)Anatomical Location / LateralityCollection Method / VolumeCollection TimeReceived TimePulmonary 08/22/2025 3:00 PM EDT1 10:26 PM EDT Narrative Authorizing ProviderResult TypeResult StatusDaniel Brynn DOLAB BLOOD ORDERABLES Edited Result - FinalPerforming OrganizationAddressCity/State/ZIP CodePhone Number [facility] [address] [address] documented in this encounter Visit Diagnoses Diagnosis COPD with acute exacerbation (HCC)- Primary Pharyngitis, unspecified etiology documented in this encounter Additional Health Concerns AssessmentNoted TimePHQ-9 Depression Total Score: 9:00 AM EST documented as of this encounter Care Teams Team MemberRelationshipSpecialtyStart DateEnd Date Vitaliy Thomson MD [address] [place] [address] PCP - ACO [facility]03/26/23 Power Swain DO [address] [address] PCP - GeneralFamily Medicine04/25/25 Sima Paul, LES [address] [place] [address] Registered NurseFamily Jpvjpxym31/23/23documented as of this encounter
[2025-08-28] VITALS (21 sets, daily range): BP systolic 127–158; BP diastolic 75–86; PULSE 66–89; TEMP 36.5–37.2; O2SAT 93–100; BMI 34.8; BMI 32.6
--- NOTE | 2025-08-28 10:52 | XR_ITS ---
[address] [address] Patient Name: NANNETTE PÉREZ MRN: [id number] date: 1955 Sex: F Assigned Patient Location: ER Current Patient Location: ED.MAIN Accession/Order Number: [id number] Exam Date: 08/28/2025 11:30 Report Date: 08/28/2025 12:05 At the request of: NYDIA CLAY MD Procedure: XR chest 1V PORTABLE AP ERECT CHEST 1119 hours CLINICAL HISTORY: Shortness of breath COMPARISON: CT and x-ray 08/27/2026 [id number] catheter is again visualized on the right. The heart is borderline prominent. There is no suspected vascular congestion. Minor atelectasis and/or scarring is again visualized. There is no developing consolidation. There is no sizable effusion or pneumothorax. The osseous structures are intact. There is slight dextroscoliotic curvature. XR/XR chest 1V IMPRESSION: NO ACUTE FINDINGS OR INTERVAL CHANGE Impression dictated by: Tracey Bah M.D. 08/28/2025 12:05 PM Dictation Location: [place] [address] Electronically authenticated by: [id number] Y Date: 08/28/2025 12:05
--- NOTE | 2025-08-28 10:52 | ECG_ITS ---
[facility] Test Date: 2025-08-28 Pat Name: NANNETTE PÉREZ Department: Room: - Gender: Female Ostomy Rn: : 1955 Requested By: Order Number: [id number] Reading MD: FOREIGN GARZON M.D. Measurements Intervals Schlater Rate: 72 P: 35 IN: 168 QRS: 22 QRSD: 78 T: 55 QT: 370 QTc: 393 Interpretive Statements 1100 Sinus rhythm 9110 normal ECG Compared to ECG 08/27/2025 18:27:26 No significant changes Electronically Signed On 08-28-2025 18:05:21 EDT by FOREIGN GARZON M.D.
[2025-08-28] MEDS: IPRATROPIUM/ALBUTEROL SULFATE 3 ML AMPUL.NEB IH ×4 (11:00→20:53)
--- NOTE | 2025-08-28 11:11 | ED.SOB1 ---
HPI - SOB/Dyspnea General Chief Complaint: Shortness of Breath/Dyspnea Stated Complaint: SHORT OF BREATH Time Seen by Provider: 08/28/25 10:45 Source: patient Mode of arrival: walk-in Limitations: no limitations History of Present Illness HPI Narrative: The patient is a 69 years old female with history of COPD as well as multiple myeloma on active treatment last treatment was almost 2 weeks ago, patient mentioned that since that treatment she did get rhinovirus infection and she was getting better from that over the last few days, she did mention that she was evaluated yesterday for shortness of breath and cough The patient denies any chest pain at any time no fever no chills upon arrival the patient is expressing that she is still short of breath she is not showing any distress not tachypneic, the patient was already getting treated with prednisone 20 mg daily as well as cefdinir when she was evaluated yesterday and discharged on the same medication after getting a breathing treatment Presenting right now to the ER after she already contacted her primary care doctor regarding the fact that she is not feeling better she mentioned that the breathing treatment yesterday helped but when she got home she was still short of breath Related Data Home Medications ?Medication ?Instructions ?Recorded ?Confirmed acyclovir 400 mg tablet 400 mg PO Q12H 08/27/25 08/28/25 albuterol sulfate 2.5 mg/3 mL 2.5 mg inhalation Q6H PRN 08/27/25 08/28/25 (0.083 %) solution for nebulization shortness of breath or wheezing atorvastatin 40 mg tablet 40 mg PO DAILY 08/27/25 08/28/25 budesonide 160 mcg-glycopyr 9 2 inh inhalation BID 08/27/25 08/28/25 mcg-formot 4.8 mcg/actuation HFA inhaler (Breztri Aerosphere) carvedilol 12.5 mg tablet 12.5 mg PO Q12H 08/27/25 08/28/25 cefdinir 300 mg capsule 300 mg PO DAILY 08/27/25 08/28/25 cetirizine 10 mg tablet 10 mg PO DAILY 08/27/25 08/28/25 fluticasone propionate 50 1 spray intranasal DAILY 08/27/25 08/28/25 mcg/actuation nasal spray,suspension furosemide 20 mg tablet 20 mg PO DAILY 08/27/25 08/28/25 guaifenesin 600 mg tablet, 600 mg PO Q12H 08/27/25 08/28/25 extended release 12 hr magnesium oxide 400 mg (241.3 mg 400 mg PO DAILY 08/27/25 08/28/25 magnesium) tablet metformin 500 mg tablet,extended 500 mg PO DAILY 08/27/25 08/28/25 release 24 hr morphine 15 mg tablet,extended 15 mg PO Q12H 08/27/25 08/28/25 release nitrofurantoin 100 mg PO DAILY 08/27/25 08/28/25 monohydrate/macrocrystals 100 mg capsule omeprazole 40 mg capsule,delayed 40 mg PO DAILY 08/27/25 08/28/25 release ondansetron 8 mg disintegrating 8 mg translingual Q12H PRN nausea 08/27/25 08/28/25 tablet and vomiting oxycodone 10 mg tablet 10 mg PO Q4H PRN pain 08/27/25 08/28/25 pantoprazole 40 mg tablet,delayed 40 mg PO Q12H 08/27/25 08/28/25 release potassium chloride 10 mEq 10 meq PO DAILY 08/27/25 08/28/25 capsule,extended release prednisone 20 mg tablet 20 mg PO DAILY 08/27/25 08/28/25 semaglutide 0.25 mg or 0.5 mg (2 0.25 mg subcut .WEEKLY 08/27/25 08/28/25 mg/3 mL) subcutaneous pen injector (Ozempic) simvastatin 20 mg tablet 20 mg PO BEDTIME 08/27/25 08/28/25 spironolactone 50 mg tablet 50 mg PO DAILY 08/27/25 08/28/25 trazodone 50 mg tablet 50 mg PO BEDTIME PRN insomnia 08/27/25 08/28/25 Allergies Allergy/AdvReac Type Severity Reaction Status Date / Time Unable to Assess Allergy Verified 04/02/25 13:29 Review of Systems ROS Status of ROS 10 or more systems reviewed and unremarkable except as noted in history and below [facility] Medical History (Updated 08/28/25 @ 12:53 by Elvi Malin MD) COPD (chronic obstructive pulmonary disease) ?J44.9 - Chronic obstructive pulmonary disease, unspecified (ICD-10) Multiple myeloma ?C90.00 - Multiple myeloma not having achieved remission (ICD-10) Social History Little interest or pleasure in doing things: not at all Feeling down, depressed, or hopeless: not at all Exam Narrative Exam Narrative: Nurses notes and vital signs reviewed and patient is not hypoxic. General: Well-appearing and in no apparent distress. Skin: Warm, dry, no pallor noted. No rash. Head: Normocephalic, atraumatic. Neck: Supple, non-tender. Cardiovascular: Regular Rate and Rhythm without murmur, gallop or rub. Respiratory: No accessory muscle use or respiratory distress. Lungs there is distant breathing sound bilaterally and rhonchi heard in the bases mostly on the right side Musculoskeletal: normal ROM, no calf or popliteal tenderness, no lower extremity edema/swelling GI: Abdomen is soft, non-distended. Normal bowel sounds. No masses appreciated. No tenderness to palpation. No rebound, guarding, or rigidity noted. Neurological: A&O x4. No cranial nerve dysfunction observed. Constitutional Vital Signs, click to edit/add: Last Vital Signs Temp 98.1 F 08/28/25 10:46 Pulse 69 08/28/25 12:28 Resp 20 08/28/25 10:46 BP 127/76 08/28/25 10:46 Pulse Ox 97 08/28/25 12:28 O2 Del Method Room Air 08/28/25 12:28 Course Vital Signs Vital signs: Vital Signs Temperature 98.1 F 08/28/25 10:46 Pulse Rate 73 08/28/25 10:46 Respiratory Rate 20 08/28/25 10:46 Blood Pressure 127/76 08/28/25 10:46 Pulse Oximetry 95 08/28/25 10:46 Oxygen Delivery Method Room Air 08/28/25 10:46 Temperature 98.1 F 08/28/25 10:46 Pulse Rate 69 08/28/25 12:28 Respiratory Rate 20 08/28/25 10:46 Blood Pressure 127/76 08/28/25 10:46 Pulse Oximetry 97 08/28/25 12:28 Oxygen Delivery Method Room Air 08/28/25 12:28 MDM - SOB/Dyspnea MDM Narrative Medical decision making narrative: The patient EKG showing sinus rhythm with a heart rate of [address] elevation or depression The patient CBC still shows white blood cell of 1.6 with a 69% leukocytes also low platelets at the baseline of 44 and the patient have a hemoglobin of 11 Chemistry did not show any acute pathology and the troponin is negative The patient already had a CT PE rule out yesterday and it did show that the patient have thoracic aortic aneurysm that is 5.1 cm which continue to be monitored The patient right now initially received Solu-Medrol as well as breathing treatment after which she was feeling better but she still received another breathing treatment because she is still short of breath Blood culture was obtained and the patient was started on azithromycin The patient case was discussed with and he agreed with above-mentioned plan The patient will be admitted for failure of outpatient treatment and COPD management Lab Data Labs: Lab Results 08/28/25 Range/Units 11:14 WBC 1.6 L (4.0-11.0) 10^3/uL RBC 3.55 L (4.20-5.40) 10^6/uL Hgb 11.6 L (12.0-16.0) g/dL Hct 34.2 L (36.0-48.0) % MCV 96.3 (81.0-99.0) fL MCH 32.7 (26.7-34.0) pg MCHC 33.9 (29.9-35.2) g/dL RDW 16.0 H (11.0-15.0) % Plt Count 38 L (150-450) 10^3/uL MPV 10.0 (9.5-13.5) fL Seg Neuts % (Manual) 69.0 (43.0-75.0) Lymphocytes % (Manual) 16.0 L (20.5-60.0) % Atypical Lymphs % (Man) 4.0 % Monocytes % (Manual) 10.0 (1.7-12.0) % Eosinophils % (Manual) 0.0 L (0.9-7.0) % Basophils % (Manual) 0.0 L (0.2-2.0) % Myelocytes % 1.0 Neutrophils # (Manual) 1.10 L (1.4-6.5) 10^3/uL Lymphocytes # (Manual) 0.25 L (1.20-3.80) 10^3/uL Abs Atypical Lymphs Man 0.06 Monocytes # (Manual) 0.16 L (0.30-0.80) 10^3/uL Eosinophils # (Manual) 0.00 (0.00-0.70) 10^3/uL Basophils # (Manual) 0.00 (0.00-0.10) 10^3/uL Myelocytes # 0.01 Sodium 141 (136-145) mmol/L Potassium 4.4 (3.5-5.1) mmol/L Chloride 102 (98-107) mmol/L Carbon Dioxide 29.3 (21.0-32.0) mmol/L Anion Gap 14.1 BUN 22.0 H (7.0-18.0) mg/dL Creatinine 0.98 (0.55-1.02) mg/dL Est GFR ( Amer) >60 (>=60 mL/min/1.73m^2) Est GFR (Non-Af Amer) 57 L (>=60 mL/min/1.73m^2) BUN/Creatinine Ratio 22.4 Glucose 145 H (74-106) mg/dL Calcium 9.3 (8.5-10.1) mg/dL Total Bilirubin 1.3 H (0.2-1.0) mg/dL AST 47 H (15-37) U/L ALT 55 (14-59) U/L Alkaline Phosphatase 121 H (46-116) U/L Troponin I High Sens 15.2 (4.0-51.3) pg/mL Total Protein 6.0 L (6.4-8.2) g/dL Albumin 3.4 (3.4-5.0) g/dL Globulin 2.6 g/dL Albumin/Globulin Ratio 1.3 Discharge Plan Discharge Chief Complaint: Shortness of Breath/Dyspnea Clinical Impression: Asthma exacerbation in COPD, Failure of outpatient treatment Patient Disposition: Admitted as Observation Time of Disposition Decision: 12:53
[2025-08-28 11:19] LABS: Hematocrit 34.2 % (36.0-48.0); Hemoglobin 11.6 g/dL (12.0-16.0); Mean Corpuscular HGB Conc 33.9 g/dL (29.9-35.2); Mean Corpuscular Hemoglobin 32.7 pg (26.7-34.0); Mean Corpuscular Volume 96.3 fL (81.0-99.0); Platelet Count 38 10^3/uL (150-450); Red Blood Count 3.55 10^6/uL (4.20-5.40); White Blood Count 1.6 10^3/uL (4.0-11.0)
[2025-08-28 11:37] LABS: Alanine Aminotransferase 55 U/L (14-59); Albumin Globulin Ratio 1.3; Albumin Level 3.4 g/dL (3.4-5.0); Alkaline Phosphatase 121 U/L (46-116); Anion Gap 14.1; Aspartate Amino Transferase 47 U/L (15-37); Blood Urea Nitrogen 22.0 mg/dL (7.0-18.0); Calcium 9.3 mg/dL (8.5-10.1); Carbon Dioxide 29.3 mmol/L (21.0-32.0); Chloride 102 mmol/L (98-107); Estimated GFR (African America >60 (>=60 mL/min/1.73m^2); Estimated GFR (Non-African Ame 57 (>=60 mL/min/1.73m^2); Globulin 2.6 g/dL; Glucose 145 mg/dL (74-106); Potassium 4.4 mmol/L (3.5-5.1); Sodium 141 mmol/L (136-145); Total Protein 6.0 g/dL (6.4-8.2)
--- OUTSIDE RECORDS SUMMARY | 2025-08-28 11:43 | XMS_ITS | Clinical Summary ---
Author Organization [facility] Address [address] [place] [address] Care Team Providers Care Special Event Assistant Name Role Phone Yinka Thomson MD Unavailable [phone] Sima Paul RN Unavailable [phone] Power Swain DO Primary Care Provider [phone] Allergies Active AllergyReactionsCriticalityNoted DateCommentsAmoxicillinSwelling,RashLow 03/17/20066190FplcmttnhfOxbloma97/20/2023 Other Reaction(s): Unknown DiclofenacUnknown,Hives05/25/2019Diclofenac VggpodZitul84/24/2019Doxycycline Unknown,Xbaxbmlr86/16/0909SrenscvhrgmlCoqtx73/30/2013Erythromycin BaseHives 12/17/2023LatexUnknown,Hives,ChjdRhnlwb44/12/2019MoxifloxacinHives,Rash,Unknown Low05/25/20194682XwoamUyardwarc89/20/2022 Other Reaction(s): dizziness AqpahtormbDoych04/09/2024 Other Reaction(s): Hives, Unknown Reaction Other Reaction(s): Unknown Reaction TetracyclineUnknown,Hives,ZmlfYktqdr63/12/2019Wound Dressing AdhesiveUnknown 05/15/2016 Medications MedicationSigDispense QuantityRefillsLast FilledStart [...] TABLET BY MOUTH EVERY THURSDAY, THURSDAY AND EDRDBI7401/11/2024ctive Aowdugn-Dosdinqpwzv-Sudjojgnsi (Breztri Aerosphere) 160-9-4.8 MCG/ACT aerosol Inhale 2 puffs in the morning and 2 puffs before bedtime.Active Teclistamab-cqyv 30 MG/3ML solution 03/21/2024ctive glucose blood (FREESTYLE LITE) test strip Indications:Type 2 diabetes mellitus with other specified complication, 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 90 capsule 306/921669/Discontinued(Therapy completed) albuterol (2.5 MG/3ML) 0.083% nebulizer solution [...] capsule Discontinued(Therapy completed) Active Problems ProblemNoted DateDiagnosed UjhbIieykx54/05/2025Gross vogemjvtz26/05/2025History of kidney letssf5807/07/2025bnormal liver jtzkxdjyzu46/11/2025Hepatocellular mzmiolikb77/11/2025Liver opuiwy5001/10/2025leeding lehswgyugwb87/24/2024 Maxplyqtktf22/24/3280Cpfpcwaceyfywdfk59/24/2024bnormal CXR (chest x-ray) 08/10/2024Spontaneous bacterial ttxnyytrsry15/09/2024aroxysmal atrial alfgankluehu25/19/2024History of tobacco abuse04/25/2024hronic obstructive pulmonary cfcztik0805/20/2023 Assessment & Plan (03/01/2025 2:47 PM EDT): Lungs around baseline on PE today, continue current tx regimen, refill albuterol nebulizer solution Orders: albuterol (2.5 MG/3ML) 0.083% nebulizer solution; Take 3 mL (2.5 mg) by nebulization every 6 (six) hours if needed for wheezing Xuujoeuvwf62/19/9631YZ9 (diabetes mellitus, type 2)05/20/2023Essential fbepnkzigeoi02/19/9439Fueccuyrlhci16/19/2023Hyperlipidemia, group D005/20/2023 Tkigqrgstibdgzxhwsybn05/19/2023Immunodeficiency kkiuulou84/06/2021Multiple myeloma not having achieved cmqwdiklz56/08/2020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)07/11/2019Primary localized osteoarthrosis of ankle and foot06/01/2019Thoracic aortic aneurysm without thedqay3604/15/2019 Hemorrhoids, hhuqzoltsij44/17/2019GERD (gastroesophageal reflux disease) 04/07/2018 Assessment & Plan [...] mouth Daily Do not crush or chew. Klhxfhvfytuv65/11/2018Morbid jkwjcmb2111/11/2017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Vitamin D /14/2006 Resolved Problems ProblemNoted DateDiagnosed DateResolved HohgFhvetwnatrsvxb60/11/202507/ Acute metabolic mttyghgrojhdzj47/19/202407/5824Itaifbkcne19 Rhinovirus hxdrunnbo80Septic shockute alteration in mental ojrmqa15History of COVID-19004/25/2024 05/15/2025Maxillary sinusitis, dmzsftp00Renal calculus /04/2023Malignant immunoproliferative vdjjbnf97MI 30.0-30.9,adultThoracic ascending aortic iexzzstv89/18/2019 07/08/2023Smoldering jyerzye03H/O abdominal hysterectomy isorder of nervous system due to type 2 diabetes mellitus 3Allergic udfvrdje493Polyneuropathy therosclerosis of aortaneurysm of infrarenal abdominal aortahronic pain slletmog68/30/2017 07/08/2023rimary jtcglldc89Leukopenia Cirrhosis of liver8726Zplltwlwdtscbifs38/30/201409/06/2023Sleep apnea Encounters DateTypeDepartmentCare XqxyAjorqezpbaf64/27/2025Telephone [facility] [address], [address] [place] [address] Power Swain DO 08/24/2025Telephone [facility] [address] [place] [address] Power Swain DO 08/23/2025Results Follow-Up [facility] [address], [address] [place] [address] Power Swain DO POCT rapid strep A manually resulted, PNEUMONIA (HTRX)08/23/2025bstract [facility] [address], [address] [place] [address] Power Swain DO 08/22/2025 2:20 PM EDTFollow-Up [facility] [address] [place] [address] Power Swain DO COPD with acute exacerbation (HCC) (Primary Dx); Pharyngitis, unspecified orpibysn25/20/2025Telephone [facility] [address] [place] [address] Polina Ferrari MA 08/18/2025bstract [facility] [address] [place] [address] Power Swain DO 08/16/2025External Result Encounter [facility] Unsolicited Fabiola Marinelli MD 08/16/2025External Result Encounter [facility] External Department Unsolicited Fabiola Marinelli MD 08/16/2025External Result Encounter [facility] External Department Unsolicited Fabiola Marinelli MD 08/14/2025bstract [facility] [address] [place] [address] Power Swain DO 08/11/2025bstract [facility] [address] [place] [address] Power Swain DO 08/11/2025Refill [facility] [address] [place] [address] Polina Ferrari MA Hyperlipidemia, group D; Gastroesophageal reflux disease, unspecified whether esophagitis present 08/09/2025bstract [facility] [address] [place] [address] Power Swain DO 08/09/2025External Result Encounter [facility] External Department Unsolicited Fabiola Marinelli MD 08/09/2025External Result Encounter [facility] External [facility] Unsolicited Fabiola Marinelli MD 08/04/2025Patient Outreach [facility] [place] [address] Sima Paul RN 08/04/2025Refill [facility] [address] [place] [address] Power Swain DO Chronic obstructive pulmonary disease, unspecified COPD type (HCC)08/04/2025 Abstract [facility] [address] [place] [address] Power Swain, 08/02/2025External Result Encounter [facility] External Department Unsolicited Fabiola Marinelli MD 08/02/2025External Result Encounter [facility] External Department Unsolicited Fabiola Marinelli MD 08/02/2025External Result Encounter [facility] External Department Unsolicited Fabiola Marinelli MD 08/02/2025External Result Encounter [facility] External Department Unsolicited Fabiola Marinelli MD 08/02/2025External Result Encounter [facility] External Department Unsolicited Fabiola Marinelli MD 08/02/2025bstract [facility] [address] [place] [address] Power Swain DO 07/21/2025bstract [facility] [address] [facility] [address] [place] [address] Power Swain DO 07/21/2025Patient Outreach [facility] [address] [place] [address] Sima Paul RN 07/20/2025bstract [facility] [address] [facility] [address] [place] [address] Power Swain DO 07/19/2025External Result Encounter [facility] External Department Unsolicited Fabiola Marinelli MD 07/19/2025External Result Encounter [facility] External Department Unsolicited Fabiola Marinelli MD 07/18/2025Refill [facility] [address] [place] [address] Power Swain, DO Seasonal allergic rhinitis due to kdpjut2207/12/2025External Result Encounter [facility] External Department Unsolicited Fabiola Marinelli MD 07/12/2025External Result Encounter [facility] External Department Unsolicited Fabiola Marinelli MD 07/12/2025External Result Encounter [facility] External Department Unsolicited Fabiola Marinelli MD 07/07/2025Patient Outreach [facility] [address] [place] [address] Sima Paul RN 07/07/2025Telephone [facility] [address] [place] [address] Polina Ferrari [place] Med Wnkwhx2207/05/2025External Result Encounter [facility] External Department Unsolicited Fabiola Marinelli MD 07/05/2025External Result Encounter [facility] External Department Unsolicited Fabiola Marinelli MD 06/20/2025External Result Encounter [facility] External Department Unsolicited Fabiola Marinelli MD 06/20/2025External Result Encounter [facility] External Department Unsolicited Fabiola Marinelli MD 06/20/2025External Result Encounter [facility] External Department Unsolicited Fabiola Marinelli MD 06/19/2025bstract [facility] [address] [place] [address] Power Swain, 06/16/2025bstract [facility] [address] [place] [address] Power Swain, 06/15/2025 8:40 AM EDTConsult [facility] [address] [place] [address] Power Swain, Preoperative zarujxnhv66/14/2025bstract [facility] [address] [place] [address] Power Swain, 06/15/2025amboo flowsheet [facility] [address] [place] [address] Power Swain DO 06/14/2025External Result Encounter [facility] External Department Unsolicited Fabiola Marinelli MD 06/14/2025External Result Encounter [facility] External Department Unsolicited Fabiola Marinelli MD 06/14/2025External Result Encounter [facility] External Department Unsolicited Fabiola Marinelli MD 06/12/2025bstract [facility] [address] [place] [address] Power Swain DO 06/12/2025Refill [facility] [address] [place] [address] Fabiola Palumbo NP Lbfyciherrbgdwtxrjgt44/07/2025bstract [facility] [address] [place] [address] Power Swain DO 06/07/2025External Result Encounter [facility] External Department Unsolicited Fabiola Marinelli MD 06/07/2025Patient Outreach [facility] [address] [place] [address] Sima Paul RN 06/07/2025External Result Encounter [facility] External Department Unsolicited Fabiola Marinelli MD 06/07/2025Refill [facility] [address] [place] [address] Fabiola Palumbo, PAMELLA Diabetes mellitus without complication (HCC); Hypertension, unspecified type06/06/2025Orders Only [facility] [address] [place] [address] Power Swain DO 05/30/2025External Result Encounter [facility] External Department Unsolicited Fabiola Marinelli MD 05/29/2025bstract [facility] [address] [place] [address] Brynn, Power, DO from Last 3 Months Immunizations ImmunizationAdministration DatesNext DueInfluenza, High Dose Seasonal, Preservative Free10/18/2024Influenza, injectable, quadrivalent, preservative free09/12/2019,10/14/2018Influenza, seasonal, filjvijdwk36/14/2015Influenza, seasonal, intradermal, preservative free10/05/2017Pneumococcal Conjugate PCV 13 07/16/2015Pneumococcal Conjugate PCV (Deferred: Patient Refused) Pneumococcal Polysaccharide ILER932312/06/2016RSV, recombinant, protein subunit RSVpreF, adjuvant reconstitu, 120mcg/0.5mL, PF (Arexvy)10/18/2024 Family History Medical HistoryRelationNameCommentsLung cancerBrotherross smithdied 62No Known ProblemsDaughterHeart diseaseFatherrobert smithHypertensionFatherrobert king 74Prostate cancerFatherrobert smithColon cancerMotherevelyn smithHeart diseaseMotherevelyn smithHypertensionMotherevelyn smithdied 85CancerSibling Breast cancerSisterelsiedied 49HypertensionSonRelationNameStatusCommentsBrother ross cscevt2BrvmlpbkIkukno3Pzngdbgdztrg smithDeceasedMotherevelyn smithDeceased TwxauEbtunkDjixykwxWyxhzjcAtkyafmcgqvXahrrazar6YhhUyjhwj8 Social History Tobacco UseTypesPacks/DayYears UsedDateSmoking Tobacco: FormerCigarettes [...] drinks on one occasion?Never06/15/2025PHQ-2AnswerDate RecordedPatient Health Questionnaire-2 Htylj295CommentsNoSex and Gender InformationValueDate Recorded Sex Assigned at BirthNot on fileLegal YzkAcwjje92/15/2023 6:38 PM EDTGender IdentityNot on fileSexual OrientationNot on fileOccupationIndustryJob Start Date Job End DateRetiredNot on fileNot on fileNot on file Last Filed Vital Signs Vital SignReadingTime TakenCommentsBlood Wumfkder676/6608/22/2025 2:32 PM EDT Cxocl079508/22/2025 2:32 PM BGPTbaqznkoxck22.5 ??C (97.7 ??F)08/22/2025 2:32 PM EDTRespiratory Huzn6880 2:32 PM EDTOxygen Tqyznvgphw96%08/22/2025 2:32 PM EDTInhaled Oxygen Concentration--Kpanny53.5 kg (193 lb)08/22/2025 2:32 PM EDT Ujhfvq690 cm (5' 3 )08/22/2025 2:32 PM EDTBody Mass Index34.191 2:32 PM EDT Plan of Treatment DateTypeDepartmentCare Team (Latest Contact Info)Meyrebezaig27/10/2025 10:00 AM ESTOffice Visit [facility] [address] [facility] [address] [place] [address] Power Swain, DO [address] [facility] [address] [place] [address] Health MaintenanceDue DateLast DoneCommentsCT Qmfakbryrgca1957FIT-DNA 1957FIT1957FOBT1957 5800Wxxwysnhczvjd1957Pneumococcal Vaccine: 65+ Years (3 of 3 - PCV20 or PCV21)/01/2017, 07/16/2015 Influenza Vaccine (#1)5112/19/2023, 09/12/2019, 10/14/2018, Additional history existsDiabetes: Urine Protein Yxgcetfrn59, 11/30/2023, 03/04/2021, Additional history existsDiabetes: Hemoglobin A1C11/22/2025 05/22/2025, 12/20/2024, 06/20/2024, Additional history existsMedicare Annual Wellness (AWV)6003/01/2025, 11/30/2023, 12/01/2022, Additional history ciokljZjipcvsac13/17/491002, 10/16/2022, 04/06/2020, Additional history existsDiabetes: Retinopathy Vwhhodjmg08/03/2025, 07/01/2024, 05/06/2022, Additional history yqdwqzNwdbnyhkujq04, 05/01/2015, 05/01/2015, Additional history existsColorectal Cancer Screening 09/15/2028 Procedures Procedure NamePriorityDate/TimeAssociated DiagnosisCommentsPOCT RAPID STREP A Esfatng1408/22/2025 3:10 PM EDT COPD with acute exacerbation (HCC) PNEUMONIA (HTRX)Fgaebvy2708/22/2025 3:00 PM EDT COPD with acute exacerbation (HCC) Pharyngitis, unspecified etiology EWHXVNEBHVQSV08/15/2025 10:32 AM EDT OFIERUPCWVDB44/15/2025 8:14 AM EDT SCAN AND CLKNQEJ7308/16/2025 8:14 AM EDT IRON AND TOTAL IRON BINDING JPZJJWSYTBZE91/15/2025 8:14 AM EDT COMPREHENSIVE METABOLIC MZGGVGWIB80/15/2025 8:14 AM EDT SCAN AND GZQRWIZ6408/09/2025 8:25 AM EDT COMPREHENSIVE METABOLIC UWSVOHtcotag81/08/2025 8:25 AM EDT XHJCSNQZRM36/01/2025 10:00 AM EDT IMMUNOGLOBULINS A/E/G/M, QN ([facility]STAT1 10:00 AM EDT RSZDMNQYAWPXWOofckyw24/01/2025 10:00 AM EDT SCAN AND QLRUqwklbe38/01/2025 10:00 AM EDT VITAMIN Z43Bqnxfjv01/01/2025 10:00 AM EDT FOLATE, QGUZHUvhnudp26/01/2025 10:00 AM EDT HQGVAXRXTllkdhb31/01/2025 10:00 AM EDT IRON AND TOTAL IRON BINDING JPVSXQVBJsccdnh49/01/2025 10:00 AM EDT COMPREHENSIVE METABOLIC MYFOBUurcypv46/01/2025 10:00 AM EDT SCAN AND RDZKEEB8007/19/2025 9:45 AM EDT COMPREHENSIVE METABOLIC BUJICAJRT78/17/2025 9:45 AM EDT IMMUNOFIXATION,SERUM ([facility]Yhgmzpn7507/12/2025 8:06 AM EDT PROTEIN ELECTROPHORESIS, GIMCOPpwdpid28/10/2025 8:06 AM EDT ALPHA FETOPROTEIN, TUMOR FDNWXRNjpwlvq08/10/2025 8:06 AM EDT DIFF AND DAISFAN2907/12/2025 8:06 AM EDT COMPREHENSIVE METABOLIC UCMBMNOYJ91/10/2025 8:06 AM EDT SCAN AND NDGADBM8807/05/2025 10:07 AM EDT COMPREHENSIVE METABOLIC WOVKZRFXZ44/03/2025 10:07 AM EDT IMMUNOGLOBULINS A/E/G/M, QN ([facility])Rlnsxjj4206/20/2025 8:15 AM EDT DIFF AND BFFPkifasw42/19/2025 8:15 AM EDT COMPREHENSIVE METABOLIC VYKSUCDAT84/19/2025 8:15 AM EDT ALPHA FETOPROTEIN, TUMOR BOISIZCcafygp02/13/2025 10:50 AM EDT SCAN AND HWFQplfugz85/13/2025 10:50 AM EDT COMPREHENSIVE METABOLIC OVTCPPmcjxox11/13/2025 10:50 AM EDT IMMUNOFIXATION,SERUM ([facility])Mjewxfw5106/07/2025 10:13 AM EDT PROTEIN ELECTROPHORESIS, LFETCDwqfons05/06/2025 10:13 AM EDT FREE K+L LT CHAINS, QN, OKeybcfv62/06/2025 10:13 AM EDT SCAN AND YAPINHM1906/07/2025 10:13 AM EDT DIABETIC RETINOPATHY SCREENING - OU - BOTH TGQPEscpfjm57/05/2025 10:06 AM EDT SCAN AND YAPLNGX7905/30/2025 9:15 AM EDT HEMOGLOBIN D0GZdlpwho98/21/2025 9:45 AM EDT Type 2 diabetes mellitus without complication, without long-term current use of insulin (HCC) MICROALBUMIN / CREATININE URINE DOJGKQscvusr26/25/2024 12:23 PM EDT Essential hypertension Type 2 diabetes mellitus with other specified complication, unspecified whether long-term insulin use (HCC) MM TOMOSYNTHESIS SCREENING BI08/18/2024 3:19 PM EDT BEZNPQJHVCEYmbxntt25/14/2018 12:00 PM EST from Last 3 Months or Most Recently Relevant to Health Maintenance Results * POCT rapid strep A manually resulted (08/22/2025 3:10 PM EDT)ComponentValueRef RangeTest MethodAnalysis TimePerformed AtPathologist SignatureRapid Strep A ScreenNegativeNegative, None DetectedSpecimen (Source)Anatomical Location / LateralityCollection Method / VolumeCollection TimeReceived IeuuQhyx08/21/2025 3:10 PM EDT Narrative Authorizing ProviderResult TypeResult StatusDaniel Brynn DOPOINT OF CARE TEST ENTER/EDIT ORDERABLESFinal Result * (ABNORMAL) PNEUMONIA (HTRX) (08/22/2025 3:00 PM EDT)ComponentValueRef Range Test MethodAnalysis TimePerformed AtPathologist SignatureSTREPTOCOCCUS PYOGENES (GROUP A STREP) (RESPIRATORY)019.961 - 24.689 ppm08/23/2025 6:49 AM EDTHealthTrackRx at LabPortSTREPTOCOCCUS PYOGENES (GROUP A STREP) (RESPIRATORY)Not Dpuijeej23.961 - 24.689 ppm08/23/2025 6:49 AM EDT [facility] at LabPortSTREPTOCOCCUS PNEUMONIAE (RESPIRATORY)019.961 - 24.689 ppm08/23/2025 6:49 AM EDTHealthTrackRx at LabPortSTREPTOCOCCUS PNEUMONIAE (RESPIRATORY)Not Vhqplwbb03.961 - 24.689 ppm08/23/2025 6:49 AM EDT [facility] at LabPortSTREPTOCOCCUS AGALACTIAE (GROUP B STREP) (RESPIRATORY) 019.961 - 24.689 ppm08/23/2025 6:49 AM EDTHealthTrackRx at [facility]Port STREPTOCOCCUS AGALACTIAE (GROUP B STREP) (RESPIRATORY)Not Tidasmrv59.961 - 24.689 ppm08/23/2025 6:49 AM EDTHealthTrackRx at LabPortSTAPHYLOCOCCUS AUREUS (RESPIRATORY)019.961 - 24.689 ppm08/23/2025 6:49 AM EDTHealthTrackRx at LabPortSTAPHYLOCOCCUS AUREUS (RESPIRATORY)Not Lsidoyeo68.961 - 24.689 ppm 08/23/2025 6:49 AM EDTHealthTrackRx at LabPortSERRATIA MARCESCENS (RESPIRATORY)019.961 - 24.689 ppm08/23/2025 6:49 AM EDTHealthTrackRx at LabPortSERRATIA MARCESCENS (RESPIRATORY)Not Slhqgvmx83.961 - 24.689 ppm 08/23/2025 6:49 AM EDTHealthTrackRx at LabPortRESPIRATORY SYNCYTIAL VIRUS (RESPIRATORY)023.000 - 31.953 ppm08/23/2025 6:49 AM EDTHealthTrackRx at LabPortRESPIRATORY SYNCYTIAL VIRUS (RESPIRATORY)Not Eyqcehsu66.000 - 31.953 ppm08/23/2025 6:49 AM EDTHealthTrackRx at LabPortPSEUDOMONAS AERUGINOSA (RESPIRATORY)31.113(A)19.961 - 24.689 ppm08/23/2025 6:49 AM EDTHealthTrackRx at LabPortPSEUDOMONAS AERUGINOSA (RESPIRATORY)Detected(A)19.961 - 24.689 ppm 08/23/2025 6:49 AM EDTHealthTrackRx at LabPortPROTEUS MIRABILIS, VULGARIS (RESPIRATORY)019.961 - 24.689 ppm08/23/2025 6:49 AM EDTHealthTrackRx at LabPortPROTEUS MIRABILIS, VULGARIS (RESPIRATORY)Not Hiexlark75.961 - 24.689 ppm08/23/2025 6:49 AM EDTHealthTrackRx at LabPortPARAINFLUENZA VIRUS (TYPES 1, 2, 3 ,4) (RESPIRATORY)023.000 - 31.487 ppm08/23/2025 6:49 AM EDTHealthTrackRx at LabPortPARAINFLUENZA VIRUS (TYPES 1, 2, 3 ,4) (RESPIRATORY)Not Detected 23.000 - 31.487 ppm08/23/2025 6:49 AM EDTHealthTrackRx at LabPortMYCOPLASMA PNEUMONIAE (RESPIRATORY)019.961 - 24.689 ppm08/23/2025 6:49 AM EDT [facility] at LabPortMYCOPLASMA PNEUMONIAE (RESPIRATORY)Not Lcnkraya85.961 - 24.689 ppm08/23/2025 6:49 AM EDTHealthTrackRx at LabPortMORAXELLA CATARRHALIS (RESPIRATORY)019.961 - 24.689 ppm08/23/2025 6:49 AM EDT [facility] at LabPortMORAXELLA CATARRHALIS (RESPIRATORY)Not Dckjkfnc52.961 - 24.689 ppm08/23/2025 6:49 AM EDTHealthTrackRx at LabPortLEGIONELLA PNEUMOPHILA (RESPIRATORY)019.961 - 24.689 ppm08/23/2025 6:49 AM EDT [facility] LabPortLEGIONELLA PNEUMOPHILA (RESPIRATORY)Not Caqgzhjq57.961 - 24.689 ppm08/23/2025 6:49 AM EDTHealthTrackRx at LabPortKLEBSIELLA PNEUMONIAE, OXYTOCA (RESPIRATORY)019.961 - 24.689 ppm08/23/2025 6:49 AM EDT [facility] LabPortKLEBSIELLA PNEUMONIAE, OXYTOCA (RESPIRATORY)Not Dvwlcehx06.961 - 24.689 ppm08/23/2025 6:49 AM EDT[facility] INFLUENZA VIRUS, A, B (RESPIRATORY)023.000 - 29.803 ppm08/23/2025 6:49 AM EDT [facility] HealthINFLUENZA VIRUS, A, B (RESPIRATORY)Not Fnfjqwqu51.000 - 29.803 ppm08/23/2025 6:49 AM EDTHealthTrackRx at [facility] HealthHUMAN METAPNEUMOVIRUS (RESPIRATORY)023.000 - 33.630 ppm10 6:49 AM EDT [facility] HealthHUMAN METAPNEUMOVIRUS (RESPIRATORY)Not Hxsxzihu53.000 - 33.630 ppm08/23/2025 6:49 AM EDTHealthTrackRx at LabPortHAEMOPHILUS INFLUENZAE (RESPIRATORY)019.961 - 24.689 ppm08/23/2025 6:49 AM EDT [facility] LabPortHAEMOPHILUS INFLUENZAE (RESPIRATORY)Not Aprblunm18.961 - 24.689 ppm10 6:49 AM EDTHealthTrackRx at LabPortESCHERICHIA COLI (RESPIRATORY)019.961 - 24.689 ppm08/23/2025 6:49 AM EDTHealthTrackRx at LabPortESCHERICHIA COLI (RESPIRATORY)Not Efzrdlck59.961 - 24.689 ppm10 6:49 AM EDTHealthTrackRx at LabPortENTEROVIRUS D68 (RESPIRATORY)023.000 - 32.268 ppm08/23/2025 6:49 AM EDTHealthTrackRx at LabPortENTEROVIRUS D68 (RESPIRATORY)Not Hghkusla29.000 - 32.268 ppm08/23/2025 6:49 AM EDT [facility] LabPortOTHER CORONAVIRUSES (229E, NL63, HKU1, OC43) (RESPIRATORY)023.000 - 30.477 ppm08/23/2025 6:49 AM EDTHealthTrackRx at LabPortOTHER CORONAVIRUSES (229E, NL63, HKU1, OC43) (RESPIRATORY)Not Detected 23.000 - 30.477 ppm08/23/2025 6:49 AM EDTHealthTrackRx at LabPortCHLAMYDIA PNEUMONIAE (RESPIRATORY)019.961 - 24.689 ppm08/23/2025 6:49 AM EDT [facility] at LabPortCHLAMYDIA PNEUMONIAE (RESPIRATORY)Not Ltnktmyo20.961 - 24.689 ppm08/23/2025 6:49 AM EDTHealthTrackRx at LabPortBORDETELLA PERTUSSIS, PARAPERTUSSIS, BRONCHISEPTICA (RESPIRATORY)019.961 - 24.689 ppm08/23/2025 6:49 AM EDTHealthTrackRx at LabPortBORDETELLA PERTUSSIS, PARAPERTUSSIS, BRONCHISEPTICA (RESPIRATORY)Not Vxowytjg90.961 - 24.689 ppm10 6:49 AM EDTHealthTrackRx at LabPortACINETOBACTER BAUMANNII (RESPIRATORY)019.961 - 24.689 ppm105 6:49 AM EDTHealthTrackRx at LabPortACINETOBACTER BAUMANNII (RESPIRATORY)Not Abxipkdd75.961 - 24.689 ppm10/ 6:49 AM EDT [facility] COVID-19 OETTWYLJXDC473.000 - 31.947 ppm 08/23/2025 6:49 AM EDTHealth[facility]Rx at LabPortHTRX COVID-19 CORONAVIRUSNot Kylyjqui92.000 - 31.947 ppm08/23/2025 6:49 AM EDTHealth[facility]Rx [facility] [place] RHINOVIRUS/ENTEROVIRUS (RESPIRATORY)29.8(A)23.000 - 30.000 ppm08/23/2025 6:49 AM EDTHealth[facility]Rx at [facility] [place]RHINOVIRUS/ENTEROVIRUS (RESPIRATORY)Detected(A) 23.000 - 30.000 ppm08/23/2025 6:49 AM EDTHealthTrackRx at [facility] IndianapolisADENOVIRUS HADV-B (RESPIRATORY)023.000 - 31.833 ppm08/23/2025 6:49 AM EDTHealth[facility]Rx at [facility] [place]ADEN[facility] HADV-B (RESPIRATORY)Not Njuynsnn50.000 - 31.833 ppm 08/23/2025 6:49 AM EDTHealthTrackRx at LabPortENTEROBACTER CLOACAE COMPLEX, KLEBSIELLA (ENTEROBACTER) AEROGENES (UXGECAZF876.961 - 24.689 ppm08/23/2025 6:49 AM EDTHealthTrackRx at LabPortENTEROBACTER CLOACAE COMPLEX, KLEBSIELLA (ENTEROBACTER) AEROGENES (RESPIRATNot Oxxarnto88.961 - 24.689 ppm08/23/2025 6:49 AM EDTHealthTrackRx at LabSelect Specialty Hospital - IndianapolisSpecimen (Source)Anatomical Location / LateralityCollection Method / VolumeCollection TimeReceived TimePulmonary 08/22/2025 3:00 PM EDT1 10:26 PM EDT Narrative Authorizing ProviderResult TypeResult StatusDanijose manuel LUNA BLOOD ORDERABLES Edited Result - FinalPerforming OrganizationAddressCity/State/ZIP CodePhone Number [facility] [address] [address] * (ABNORMAL) Magnesium (08/16/2025 10:32 AM EDT)ComponentValueRef RangeTest MethodAnalysis TimePerformed AtPathologist SignatureMAGNESIUM1.7(L)1.9 - 2.7 mg/dL08/16/2025 11:04 AM [facility] CtrSpecimen (Source) Anatomical Location / LateralityCollection Method / VolumeCollection Time Received TimeOtherTopography unknown / Fmjiuuq7308/16/2025 10:32 AM EDT 08/16/2025 10:32 AM EDT Narrative Authorizing ProviderResult TypeResult StatusFabiola Marinelli MDLAB BLOOD ORDERABLES Final ResultPerforming OrganizationAddressCity/State/ZIP CodePhone Number [facility] [address] [place] [address], [facility] [address] [place] [address] * (ABNORMAL) SCAN AND CBC (08/16/2025 8:14 AM EDT) Only the most recent of8 resultswithin the time period is included. ComponentValueRef RangeTest MethodAnalysis TimePerformed AtPathologist Signature WBC1.8(L)3.8 - 11.6 [CFU]/mL08/16/2025 8:40 AM [facility] Ctr UNCORRECTED WHITE BLOOD COUNT1.8(L)3.8 - 11.6 10*3/uL08/16/2025 8:40 AM EDT [facility] CtrRBC3.45(L)3.60 - 5.00 10*6/uL08/16/2025 8:40 AM [facility] HrkSPDTHWBZME30.2(L)11.8 - 15.4 g/dL08/16/2025 8:40 AM [facility] StgZPGJAOBKRZ34.6(L)34.0 - 46.4 % 08/16/2025 8:40 AM [facility] RtqHUZ89.480 - 100 fL08/16/2025 8:40 AM [facility] NwsAAA57.424.7 - 34.3 pg08/16/2025 8:40 AM [facility] MehOWYQ11.432.0 - 35.0 g/dL08/16/2025 8:40 AM [facility] CtrRED CELL DISTRIBUTION WIDTH, RDW15.311.9 - 15.3 %08/16/2025 8:40 AM [facility] CtrPLATELET COUNT44(L)150 - 450 10*3/uL08/16/2025 8:40 AM [facility] CtrMEAN PLATELET VOLUME, MPV7.96.3 - 10.7 fL08/16/2025 8:40 AM [facility] Ctr NEUTROPHILS, %36.0. %08/16/2025 9:03 AM [facility] Ctr LYMPHOCYTES, %16.6. %08/16/2025 9:03 AM [facility] Ctr MONOCYTE/MACROPHAGE, %13.4. %08/16/2025 9:03 AM [facility] CtrEOSINOPHILS, %33.6. %08/16/2025 9:03 AM [facility] Ctr BASOPHILS, %0.4. %08/16/2025 9:03 AM [facility] CtrNRBC0.00 - 0.5 /100{WBC}08/16/2025 9:03 AM [facility] CtrNEUTROPHILS0.7 (L)1.8 - 7.7 10*3/uL08/16/2025 9:03 AM [facility] Ctr LYMPHOCYTES0.3(L)1.00 - 4.8 10*3/uL08/16/2025 9:03 AM [facility] CtrMONOCYTES0.20.0 - 0.8 10*3/uL08/16/2025 9:03 AM [facility] CtrEOSINOPHILS0.6(H)0.0 - 0.45 10*3/uL08/16/2025 9:03 AM [facility] CtrBASOPHILS0.00.0 - 0.2 10*3/uL08/16/2025 9:03 AM [facility] XnkQXVYZJELTJTyggjo54/15/2025 9:03 AM [facility] CtrPLATELET XDLFPCTOHtbfialgeQcqpxg46/15/2025 9:03 AM [facility] CtrPLATELET GTTYZRUNKNUvxdnmGrzvza27/15/2025 9:03 AM [facility] CtrSpecimen (Source)Anatomical Location / Laterality Collection Method / VolumeCollection TimeReceived TimeBlood (Blood)08/16/2025 8:14 AM EDT1 8:18 AM EDT Narrative Authorizing ProviderResult TypeResult StatusFabiola KIRKPATRICK BLOOD ORDERABLES Final ResultPerforming OrganizationAddressCity/State/ZIP CodePhone Number [facility] [address] [place] [address], [facility] [address] [place] [address] * Iron and TIBC (08/16/2025 8:14 AM EDT) Only the most recent of2 resultswithin the time period is included. ComponentValueRef RangeTest MethodAnalysis TimePerformed AtPathologist Signature VNWZ8819 - 212 ug/dL08/16/2025 8:48 AM [facility] CtrTOTAL IRON BINDING PLOUMSJY600590 - 450 ug/dL08/16/2025 8:48 AM [facility] Ctr% IRON FBYNBNGZAU31.920 - 50 %08/16/2025 8:48 AM [facility] CogWEQISRMZGMT111698 - 362 mg/dL08/16/2025 8:48 AM [facility] CtrSpecimen (Source)Anatomical Location / LateralityCollection Method / VolumeCollection TimeReceived TimeOtherTopography unknown / Unknown 08/16/2025 8:14 AM EDT1 8:18 AM EDT Narrative Authorizing ProviderResult TypeResult StatusFabiola KIRKPATRICK BLOOD ORDERABLES Final ResultPerforming OrganizationAddressCity/State/ZIP CodePhone Number [facility] [address] [place] [address], [facility] [address] [place] [address] * Ferritin (08/16/2025 8:14 AM EDT) Only the most recent of2 resultswithin the time period is included. ComponentValueRef RangeTest MethodAnalysis TimePerformed AtPathologist Signature DALMQMML336.111.0 - 306.8 ng/mL08/16/2025 9:07 AM [facility] CtrSpecimen (Source)Anatomical Location / LateralityCollection Method / Volume Collection TimeReceived TimeOtherTopography unknown / Mysiuid2008/16/2025 8:14 AM EDT1 8:18 AM EDT Narrative Authorizing ProviderResult TypeResult StatusFabiola KIRKPATRICK BLOOD ORDERABLES Final ResultPerforming OrganizationAddressCity/State/ZIP CodePhone Number [facility] [address] [place] [address], [facility] [address] [place] [address] * (ABNORMAL) Comprehensive metabolic panel (08/16/2025 8:14 AM EDT) Only the most recent of8 resultswithin the time period is included. ComponentValueRef RangeTest MethodAnalysis TimePerformed AtPathologist Signature Oaaduum553(H)70 - 100 mg/dL08/16/2025 8:48 AM [facility] Ctr Comment: Random Glucose Reference Range is dependent on time and content of last meal. Glucose of more than 200 mg/dL in a nonstressed, ambulatory subject supports the diagnosis of Diabetes Mellitus. ADA recommended reference range BJB063 - 25 mg/dL08/16/2025 8:48 AM [facility] CtrCREATININE 0.990.60 - 1.20 mg/dL08/16/2025 8:48 AM [facility] Ctr ESTIMATED GFR>60. 8:48 AM [facility] JmvQmshko276 136 - 145 mmol/L1 8:48 AM [facility] CtrPotassium, Bld4.13.5 - 5.1 mmol/L1 8:48 AM [facility] Ctr Ccppqcgp62978 - 107 mmol/L1 8:48 AM [facility] Ctr Carbon Zxrpwur87.521.0 - 31.0 mmol/L1 8:48 AM [facility] CtrAnion Gap8.66.0 - 15. 8:48 AM [facility] CtrCalcium9.08.6 - 10.3 mg/dL08/16/2025 8:48 AM [facility] CtrTOTAL PROTEIN5.5(L)6.4 - 8.9 g/dL08/16/2025 8:48 AM [facility] CtrALBUMIN LEVEL3.63.5 - 5.7 g/dL08/16/2025 8:48 AM EDT [facility] CtrGLOBULIN1.9g/dL08/16/2025 8:48 AM [facility] CtrALBUMIN/GLOBULIN RATIO1.91 8:48 AM [facility] CtrBILIRUBIN,TOTAL0.90.3 - 1.0 mg/dL08/16/2025 8:48 AM EDT [facility] CtrASPARTATE AMINO AAXZRVECOYP9177 - 39 U/L1 8:48 AM [facility] CtrALANINE ZARLZMYJVUBVYHHQ340 - 52 U/L 08/16/2025 8:48 AM [facility] CtrALKALINE ABDQXQARJQL1132 - 104 U/L1 8:48 AM [facility] CtrCREATININE CLR CALC ISLLIWXD09.181 8:48 AM [facility] CtrSpecimen (Source)Anatomical Location / LateralityCollection Method / VolumeCollection TimeReceived TimeOtherTopography unknown / Adyyxsp6408/16/2025 8:14 AM EDT 08/16/2025 8:18 AM EDT Narrative Authorizing ProviderResult TypeResult StatusFabiola Marinelli MDLAB BLOOD ORDERABLES Final ResultPerforming OrganizationAddressCity/State/ZIP CodePhone Number [facility] [address] [place] [address], [facility] [address] [place] [address] * IMMUNOGLOBULINS A/E/G/M, QN ([facility] (08/02/2025 10:00 AM EDT) Only the most recent of2 resultswithin the time period is included. ComponentValueRef RangeTest MethodAnalysis TimePerformed AtPathologist Signature IMMUNOGLOBULIN A632175 - 1,602 mg/dL08/07/2025 6:36 [facility] IMMUNOGLOBULIN A, SERUM<587 - 352 mg/dL08/07/2025 6:36 AM EDTFIREPROSSER MEMORIAL HOSPITALComment: Result confirmed on concentration.IMMUNOGLOBULIN M, SERUM<526 - 217 mg/dL 08/07/2025 6:36 AM EDTFIRELANDSComment:Result confirmed on concentration. IMMUNOGLOBULIN E<26 - 1250408/07/2025 6:36 AM EDTFIRELANDSComment: Performed at: ?? - [address] ??[id number] Pathology Laboratory Technologist: Lang Knight PhD, Phone: ??[phone] Performed at: ??[address] ??[id number] Pathology Laboratory Technologist: Maxine Briones MD, Phone: ??[phone] Specimen (Source)Anatomical Location / LateralityCollection Method / Volume Collection TimeReceived TimeOtherTopography unknown / Trzztqg2008/02/2025 10:00 AM EDT1 10:04 AM EDT Narrative Authorizing ProviderResult TypeResult StatusFabiola KIRKPATRICK BLOOD ORDERABLES Final ResultPerforming OrganizationAddressty/[facility] LanierPhone [facility] [address] [place] [address], [place] * Copper, serum (08/02/2025 10:00 AM EDT)ComponentValueRef RangeTest Method Analysis TimePerformed AtPathologist RjyfhxfmvRLFVVL29167 - 158 ug/dL 08/08/2025 10:06 PM EDTFIRELANDSComment: This test was developed and its performance characteristics determined by [facility]. It has not been cleared or approved by the Food and Drug Administration. ?Detection Limit = 5 Performed at: ??[address] ??[id number] Pathology Laboratory Technologist: Maxine Briones MD, Phone: ??[phone] Specimen (Source)Anatomical Location / LateralityCollection Method / Volume Collection TimeReceived TimeOtherTopography unknown / Goxwnsd0208/02/2025 10:00 AM EDT1 10:04 AM EDT Narrative Authorizing ProviderResult TypeResult StatusFabiola KIRKPATRICK BLOOD ORDERABLES Final ResultPerforming OrganizationAddressGreene [facility] LanierPhone Number [facility] [address] [place] [address], [place] * Ceruloplasmin (08/02/2025 10:00 AM EDT)ComponentValueRef RangeTest Method Analysis TimePerformed AtPathologist ZmaglsxezKFDJQBSHVNBRE50.419.0 - 39.0 mg/dL08/03/2025 3:36 AM EDTFIRELANDSComment: Performed at: ?? - [facility] [address] ??[id number] Pathology Laboratory Technologist: Lang Knight PhD, Phone: ??[phone] Specimen (Source)Anatomical Location / LateralityCollection Method / Volume Collection TimeReceived TimeOtherTopography unknown / Xkkjsbx1008/02/2025 10:00 AM EDT1 10:04 AM EDT Narrative Authorizing ProviderResult TypeResult StatusFabiola KIRKPATRICK BLOOD ORDERABLES Final ResultPerforming OrganizationAddressCity/State/ZIP CodePhone Number [facility] [address] [place] [address], * Folate (08/02/2025 10:00 AM EDT)ComponentValueRef RangeTest MethodAnalysis TimePerformed AtPathologist SignatureFOLATE9.9>5.9 ng/mL08/02/2025 11:02 AM [facility] CtrComment: Folate reference range: >5.9 ng/ml The WHO technical consultation on folate and vitamin b12 deficiencies has determined that folate concentrations less than 4 ng/ml are considered deficient. Specimen (Source)Anatomical Location / LateralityCollection Method / Volume Collection TimeReceived TimeOtherTopography unknown / Jffuvop1308/02/2025 10:00 AM EDT1 10:04 AM EDT Narrative Authorizing ProviderResult TypeResult StatusFabiola KIRKPATRICK BLOOD ORDERABLES Final ResultPerforming OrganizationAddressty/State/ZIP CodePhone Number [facility] [address] [place] [address], [facility] [address] [place] [address] * (ABNORMAL) Vitamin B12 (08/02/2025 10:00 AM EDT)ComponentValueRef RangeTest MethodAnalysis TimePerformed AtPathologist SignatureVITAMIN B121,113(H)180 - 914 pg/mL08/02/2025 11:03 AM [facility] CtrSpecimen (Source)Anatomical Location / LateralityCollection Method / VolumeCollection TimeReceived TimeOtherTopography unknown / Jqywggz0208/02/2025 10:00 AM EDT 08/02/2025 10:04 AM EDT Narrative Authorizing ProviderResult TypeResult StatusFabiola KIRKPATRICK BLOOD ORDERABLES Final ResultPerforming OrganizationAddressCity/State/ZIP CodePhone Number [facility] [address] [place] [address], [facility] [address] [place] [address] * (ABNORMAL) DIFF AND CBC (07/12/2025 8:06 AM EDT) Only the most recent of2 resultswithin the time period is included. ComponentValueRef RangeTest MethodAnalysis TimePerformed AtPathologist Signature WBC2.5(L)3.8 - 11.6 [CFU]/mL07/12/2025 8:33 AM [facility] Ctr UNCORRECTED WHITE BLOOD COUNT2.5(L)3.8 - 11.6 10*3/uL07/12/2025 8:33 AM EDT [facility] CtrRBC3.52(L)3.60 - 5.00 10*6/uL07/12/2025 8:33 AM [facility] KhjVSVFTNOUJW96.6(L)11.8 - 15.4 g/dL07/12/2025 8:33 AM [facility] BtzUQDWGIUHIU08.534.0 - 46.4 %07/12/2025 8:33 AM [facility] PsmKSH57.080 - 100 fL07/12/2025 8:33 AM [facility] TpkLSC31.924.7 - 34.3 pg07/12/2025 8:33 [facility] YvgFMIP21.532.0 - 35.0 g/dL07/12/2025 8:33 AM [facility] CtrRED CELL DISTRIBUTION WIDTH, RDW15.211.9 - 15.3 % 07/12/2025 8:33 AM [facility] CtrPLATELET COUNT57(L)150 - 450 10*3/uL07/12/2025 8:33 AM [facility] CtrMEAN PLATELET VOLUME, MPV9.06.3 - 10.7 fL07/12/2025 8:33 AM [facility] Ctr SEGMENTED DWZTGFHJHTI62(L)50 - 70 %07/12/2025 9:09 AM [facility] CtrBAND CHQBAHZOPNV21 - 5 %07/12/2025 9:09 AM [facility] EdvRXHQPISHIQE4467 - 42 %07/12/2025 9:09 AM [facility] WfvKJKZJEBNU15(H)2 - 11 %07/12/2025 9:09 AM [facility] EycKMOVFKPETMM10(H)1 - 3 %07/12/2025 9:09 AM [facility] ClhDWGPDVOXRUQPRAFevpkcdd71/10/2025 9:09 AM [facility] TerXVBJWERJTPKexnenbh38/10/2025 9:09 AM [facility] CtrPLATELET RKTYKNRFAywzfjwaaDmwmxe18/10/2025 9:09 AM [facility] CtrPLATELET PNOORUXBJZJpsddvVupbkk93/10/2025 9:09 AM [facility] CtrSpecimen (Source)Anatomical Location / LateralityCollection Method / VolumeCollection TimeReceived TimeBlood (Blood)07/12/2025 8:06 AM EDT 07/12/2025 8:16 AM EDT Narrative Authorizing ProviderResult TypeResult StatusFabiola Marinelli MDLAB BLOOD ORDERABLES Final ResultPerforming OrganizationAddressCity/State/ZIP CodePhone Number [facility] [address] [place] [address], [facility] [address] [place] [address] * IMMUNOFIXATION,SERUM ([facility] (07/12/2025 8:06 AM EDT) Only the most recent of2 resultswithin the time period is included. ComponentValueRef RangeTest MethodAnalysis TimePerformed AtPathologist Signature IMMUNOFIXATION, SERUMComment.07/14/2025 2:09 PM EDTFIRELANDSComment:No monoclonality detected.IMMUNOGLOBULIN T324381 - 1,602 mg/dL07/14/2025 2:09 PM EDTFIREPROSSER MEMORIAL HOSPITALIMMUNOGLOBULIN A, SERUM<587 - 352 mg/dL07/14/2025 2:09 PM EDT FIRELANDSComment:Result confirmed on concentration.IMMUNOGLOBULIN M, SERUM<526 - 217 mg/dL07/14/2025 2:09 PM EDTFIRELANDSComment: Result confirmed on concentration. Performed at: ??[address] ??[id number] Pathology Laboratory Technologist: Lang Knight PhD, Phone: ??[phone] Specimen (Source)Anatomical Location / LateralityCollection Method / Volume Collection TimeReceived TimeOtherTopography unknown / Xrvweyz3907/12/2025 8:06 AM EDT07/12/2025 8:16 AM EDT Narrative Authorizing ProviderResult TypeResult StatusFabiola KIRKPATRICK BLOOD ORDERABLES Final ResultPerforming OrganizationAddressty/[facility] LanierPhone Number [facility] [address] [place] [address], [place] * AFP tumor marker (07/12/2025 8:06 AM EDT) Only the most recent of2 resultswithin the time period is included. ComponentValueRef RangeTest MethodAnalysis TimePerformed AtPathologist Signature AFP TUMOR MARKER, SERUM4.60.0 - 9.2 ng/mL07/13/2025 12:09 PM EDTFIREPROSSER MEMORIAL HOSPITAL Comment: [employer] Electrochemiluminescence Immunoassay (ECLIA) Values obtained with different assay methods or kits cannot be used interchangeably. ??Results cannot be interpreted as absolute evidence of the presence or absence of malignant disease. This test is not interpretable in females. Performed at: ??[address] ??[id number] Pathology Laboratory Technologist: Lang Knight PhD, Phone: ??[phone] Specimen (Source)Anatomical Location / LateralityCollection Method / Volume Collection TimeReceived TimeOtherTopography unknown / Ebggmod6907/12/2025 8:06 AM EDT07/12/2025 8:16 AM EDT Narrative Authorizing ProviderResult TypeResult StatusFabiola KIRKPATRICK BLOOD ORDERABLES Final ResultPerforming OrganizationAddressty/[facility] LanierPhone Number [facility] [address] [place] [address], [place] * Protein electrophoresis, serum (07/12/2025 8:06 AM EDT) Only the most recent of2 resultswithin the time period is included. ComponentValueRef RangeTest MethodAnalysis TimePerformed AtPathologist Signature TOTAL PROTEIN, SERUM5.46.0 - 8.5 g/dL07/13/2025 2:08 PM EDTFIRELANDSALBUMIN, SERUM3.12.9 - 4.4 g/dL07/13/2025 2:08 PM XEJNMSEEQKDWILYEG-6-CYGAYAAZ3.30.0 - 0.4 g/dL07/13/2025 2:08 PM EBZDDXBKDFWQABDOL-7-PGBZMUCR7.70.4 - 1.0 g/dL 07/13/2025 2:08 PM EDTFIRELANDSBETA GLOBULIN0.80.7 - 1.3 g/dL07/13/2025 2:08 PM EDTFIRELANDSGAMMA GLOBULIN0.40.4 - 1.8 g/dL07/13/2025 2:08 PM EDTFIRELANDS M-SPIKENot ObservedNot Observed g/dL07/13/2025 2:08 PM EDTFIRELANDSGLOBULIN, TOTAL2.32.2 - 3.9 g/dL07/13/2025 2:08 PM EDTFIRELANDSA/G RATIO1.30.7 - 1.7 07/13/2025 2:08 PM EDTFIRELANDSSPE-NOTEComment.07/13/2025 2:08 PM EDTFIRELANDS Comment: Protein electrophoresis scan will follow via computer, mail, or wire tinner delivery. Performed at: ?? - [facility] [address] ??[id number] Pathology Laboratory Technologist: Lang Knight PhD, Phone: ??[phone] Specimen (Source)Anatomical Location / LateralityCollection Method / Volume Collection TimeReceived TimeOtherTopography unknown / Otjlqys4607/12/2025 8:06 AM EDT07/12/2025 8:16 AM EDT Narrative Authorizing ProviderResult TypeResult StatusFabiola KIRKPATRICK BLOOD ORDERABLES Final ResultPerforming OrganizationAddressCity/State/ZIP CodePhone Number [address] [place] [address], * FREE K+L LT CHAINS, QN, S (06/07/2025 10:13 AM EDT)ComponentValueRef RangeTest MethodAnalysis TimePerformed AtPathologist SignatureFREE KAPPA LIGHT CHAINS, S<0.73.3 - 19.4 mg/L06/08/2025 2:36 PM EDTFIRELANDSFREE LAMBDA LIGHT CHAINS, S 5.85.7 - 26.3 mg/L06/08/2025 2:36 PM EDTFIRELANDSKAPPA/LAMBDA RATIO, S<0.12 0.26 - 1.6508 2:36 PM EDTFIRELANDSComment: Performed at: ??CB - [facility] [address] ??[id number] Pathology Laboratory Technologist: Lang Knight PhD, Phone: ??[phone] Specimen (Source)Anatomical Location / LateralityCollection Method / Volume Collection TimeReceived TimeOtherTopography unknown / Gqfzhzs0106/07/2025 10:13 AM EDT06/07/2025 10:20 AM EDT Narrative Authorizing ProviderResult TypeResult Jm KIRKPATRICK BLOOD ORDERABLES Final ResultPerforming OrganizationAddressCity/State/ZIP CodePhone Number [address] * Diabetic Retinopathy Screening - OU - Both Eyes (06/06/2025 10:06 AM EDT) Anatomical RegionLateralityModalityHeadOther Narrative Authorizing ProviderResult TypeResult StatusDaniel Brynn DOOPHTH PHOTOGRAPHY Final Result * Hemoglobin A1c (05/22/2025 9:45 AM EDT)Specimen (Source)Anatomical Location / LateralityCollection Method / VolumeCollection TimeReceived TimeBloodVenous blood specimen / Unknown Narrative Authorizing ProviderResult TypeResult StatusDanijose manuel Swain DOLAB BLOOD ORDERABLES Final ResultPerforming OrganizationAddressCity/State/ZIP CodePhone Number EXTERNAL LAB * Microalbumin / creatinine urine ratio (08/26/2024 12:23 PM EDT)ComponentValue Ref RangeTest MethodAnalysis TimePerformed AtPathologist Signature MICROALBUMIN, URINE< 0.70.0 - 1.810 1:19 PM [facility] CtrCREATININE, URINE (RANDOM)11.00mg/dL08/26/2024 1:17 PM [facility] CtrComment:No reference range established MICROALBUMIN/CREATININE RATIOTest not performed0.0 - 30.010 1:19 PM [facility] CtrSpecimen (Source)Anatomical Location / LateralityCollection Method / VolumeCollection TimeReceived TimeOtherUrine specimen obtained by clean catch procedure / Mewtkyz9308/26/2024 12:23 PM EDT 08/26/2024 12:23 PM EDT Narrative Authorizing ProviderResult TypeResult StatusAmy Warchol NPLAB URINE ORDERABLES Final ResultPerforming OrganizationAddressCity/State/[facility] CodePhone Number [facility] [address] [place] [address], [facility] [address] [place] [address] * MM TOMOSYNTHESIS SCREENING BI (08/18/2024 3:19 PM EDT)Anatomical Region LateralityModalityOtherSpecimen (Source)Anatomical Location / Laterality Collection Method / VolumeCollection TimeReceived Time08/18/2024 3:19 PM EDT Narrative 08/18/2024 3:20 PM EDT [facility] ?[address] ? [place] [address] ? Mammography Report ? Signed ? Patient: ELISAMOJGAN S ?MR#: [id number] ?? : 1955 ?Acct:[id number] ?? Age/Sex: 68 / F ?ADM Date: 10/17/24 ?? Loc: MAMMO ? Attending Dr: YINKA THOMSON ? Ordering Physician: JOHN,YINAK ? Results: ? Date of Service: 10/17/24 ?Follow Up: ? Procedure(s): MM tomosynthesis screening BI ?? Accession Number(s): [id number] ? cc: YINKA THOMSON ? Patient Name: ? MOJGAN SNIDER ? MR#: [id number] ? : 1955 ? Exam Date: 08/18/2024 [...] at age 66. ? LOCATION: ? [facility] ? BREAST COMPOSITION: ? There are scattered [...] 1520 ? DD/ 1519 ? TD/TT: ? Oxygen Therapist: Procedure Note Radiology, Radiologist, - 08/18/2024 [place] [address] Mammography Report Signed Patient: MOJGAN SNIDER SMR#: [id number] : 1955cct:[id number] Age/Sex: 68 / FADM Date: 08/18/24 Loc: MAMMO Attending Dr: YINKA THOMSON Ordering Physician: YINKA THOMSONResults: Date of Service: 08/18/24Follow Up: Procedure(s): MM tomosynthesis screening BI Accession Number(s): [id number] cc: YINKA THOMSON Patient Name: MOJGAN SNIDER MR#: [id number] : 1955 Exam Date: 08/18/2024 Ordering Doctor: [...] lung cancer at age 66. LOCATION: [facility] BREAST COMPOSITION: There are scattered areas [...] M.D. Signed By:08/18/24 1520 DD/ 1519 TD/TT: Oxygen Therapist: Authorizing ProviderResult TypeResult Melisa Thomson MDCLINISYNC IMAGING Final Result * Colonoscopy (09/15/2018 12:00 PM EST)Anatomical RegionLateralityModality EndoscopySpecimen (Source)Anatomical Location / LateralityCollection Method / VolumeCollection TimeReceived Time09/15/2018 12:00 PM EST Narrative 09/15/2018 12:00 PM EST PERFORMED AT [facility] LOCATION:[id number] Abnormal Procedure Note CONVERSION, GENERIC - 03/18/2023 PERFORMED AT [facility] LOCATION:[id number] Abnormal Authorizing ProviderResult TypeResult StatusYinka Thomson MDENDOSCOPY PROCEDURE ORDERABLESFinal Result from Last 3 Months or Most Recently Relevant to Health Maintenance Insurance Advance Directives * Full Code (Latest Code Status on File) Date Act[facility]Date [facility]03[facility]01/2025 2:43 PM Care Teams Team MemberRelationshipSpecialtyStart DateEnd Date Yinka Thmoson MD [address] [place] [address] PCP - ACO [facility]03/26/23 Power Swain DO [address] [address] PCP - GeneralFamily Medicine04/25/25 Sima Paul, [place]ES [address] [place] [address] Registered NurseFamily Hlwqxcfe05/23/23
--- OUTSIDE RECORDS SUMMARY | 2025-08-28 11:43 | XMS_ITS | Encounter Summary ---
Author Organization [facility] Address [address] [place] [address] Care Team Providers Care Paint Mixer Hand Name Role Phone Vitaliy Thomson MD Unavailable [phone] Sima Paul RN Unavailable [phone] Power Swain DO Primary Care Provider [phone] Encounter Details DateTypeDepartmentCare Team (Latest Contact Info)Tpwcdgiotrw69/27/2025Telephone [facility] [address], [facility] 340 [place] [address] Power Swain DO [address] [facility] [address] [place] [address] Social History Tobacco UseTypesPacks/DayYears UsedDateSmoking Tobacco: FormerCigarettes [...] on one occasion?Never06/15/2025PHQ-2AnswerDate Recorded Patient Health Questionnaire-2 Hfqjr374CommentsNoSex and Gender InformationValueDate RecordedSex Assigned at BirthNot on fileLegal SexFemale 01/14/2023 6:38 PM EDTGender IdentityNot on fileSexual OrientationNot on file OccupationIndustryJob Start DateJob End DateRetiredNot on fileNot on fileNot on filedocumented as of this encounter Miscellaneous Notes * Telephone Encounter - Yeni Swain - 08/28/2025 10:05 AM EDT Returned call to patient... patient indicated Medication from ER visit was DUONEB - did help her with breathing would like prescription if possible called in to [facility] pharmacy. * Telephone Encounter - Power Swain DO - 08/28/2025 10:03 AM EDT Okjaniya Jaime is calling her back to tell her we are looking into it and to see what meds they put her on. Can you call [facility] and have them fax over the ER report KEVON if possible please * Telephone Encounter - Yeni Swain - 08/28/2025 8:16 AM EDT Went to [facility] last nite. They gave some medication that helped with breathing. Patient states still having breathing problems and trouble today Would like more medications for breathing. documented in this encounter Plan of Treatment DateTypeDepartmentCare Team (Latest Contact Info)Vgkqvsvtdvu02/10/2025 10:00 AM ESTOffice Visit [facility] [address], [facility] 340 [place] [address] Power Swain DO [address] [place] [address] documented as of this encounter Visit Diagnoses Not on filedocumented in this encounter Additional Health Concerns AssessmentNoted TimePHQ-9 Depression Total Score: 9:00 AM EST documented as of this encounter Care Teams Team MemberRelationshipSpecialtyStart DateEnd Date Vitaliy Thomson MD [address] [place] [address] PCP - [facility]CO [facility]03/26/23 Power Swain DO [address] [address] PCP - GeneralFamily Medicine04/25/25 Sima Paul, LES [address] [place] [address] Registered NurseFamily Cdthrpjp35/23/23documented as of this encounter
--- OUTSIDE RECORDS SUMMARY | 2025-08-28 11:43 | XMS_ITS | Clinical Summary ---
Author Organization [facility] Address [address] [place] [place] [address] Care Team Providers Care Director Of Business Development Name Role Phone Vitaliy Thomson MD Primary Care Provider [phone] Daniella Lima AFTER SCHOOL COUNSELOR Unavailable [phone] Allergies Active AllergyReactionsCriticalityNoted DateCommentsAdhesiveOther: See Comments 05/15/20166150UhknzbxhoalFtpnzszi96/16/5992DlwbwmfbdohEwxymyt24/22/2014Erythromycin Hives10/31/2013LatexOther: See Fwqrkscb68/12/6725AzjnxxzbwiljUscxw54/24/2019 PlateletsOther: See Iulejpfx65/20/2019 Throat Swelling; likely angioedema TetracyclineOther: See Klwvjdiy85/12/2019Doxycycline BhwzudqAaowldkx28/16/2006 Diclofenac OfyemcBgimh19/24/2019 Medications MedicationSigDispense QuantityRefillsLast FilledStart DateEnd DateStatus ADVAIR [...] 2 UNITS FOR GLUCOSE LEVELS GREATER THAN 0935501/24/2022ctive semaglutide (OZEMPIC) 0.25 mg or 0.5 mg(2 [...] 2, controlled, without complications 04/19/2019Thoracic ascending aortic izezqldn38/18/2019COPD (chronic obstructive pulmonary disease)04/19/2019GERD (gastroesophageal reflux disease)04/19/2019 Smoldering wvooplk0604/19/20195775Hdjqjokjcewaavno75/30/2014Generalized osteoarthrosis, unspecified site04/15/2006Unspecified vitamin D deficiency 04/15/2006Sleep apnea04/15/2006Monoclonal vrzkxgeqxscifrx68/25/2006Myalgia and myositis, xxwbeweokde88/25/2006 Encounters DateTypeDepartmentCare KontGzixtnjlgsm22/16/2025 4:20 PM EDTOffice Visit Cardiology [address] [place] [address] Juan J Mendez MD Aneurysm of ascending aorta without rupture (Primary Dx); Essential hypertension; Hyperlipidemia, unspecified hyperlipidemia type; Obesity, Class III, BMI >= 40; 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) (HCC); Smoldering wwrjbvd7608/17/2025Travelfrom Last 3 Months Family History Medical HistoryRelationCommentsEmphysemaFatherHeartFatherCancerMothercolon at age 79Coronary Artery DiseaseMotherRelationStatusCommentsFatherMother Social History Tobacco UseTypesPacks/DayYears UsedDateSmoking Tobacco: UoekcyQyvnzdlyek930 07/25/1986 - 07/25/2009Smokeless Tobacco: NeverAlcohol UseStandard Drinks/Week CommentsNo0 (1 standard drink = 0.6 oz pure alcohol)PHQ-2AnswerDate RecordedPHQ2 Yyrlj597Area Deprivation IndexAnswerDate RecordedNational Score (1-100), lower number is lower ddwk209704/13/2023State Score (1-10), lower number is lower mcdu0803Data from: https://www.neighborhoodatlas.medicine.[facility].edu/. Last address used for su[address] 3CommentsNoSex and Gender InformationValueDate RecordedSex Assigned at BirthNot on fileLegal Sex Xnqwgl4010/03/2012 8:01 AM ESTGender IdentityNot on fileSexual OrientationNot on file Last Filed Vital Signs Vital SignReadingTime TakenCommentsBlood Ighxqpsp364/7608/17/2025 4:10 PM EDT Fagsg808608/17/2025 4:10 PM NLIRtjblwezwsa54.6 ??C (97.8 ??F)07/11/2019 8:08 AM EDTRespiratory Xciu746611/29/2019 10:44 AM ESTOxygen Qhgkleyqwa80%07/11/2019 8:08 AM EDTInhaled Oxygen Concentration--Kloxpf97.8 kg (186 lb 15.2 oz)08/17/2025 4:10 PM PJVIcyupx494.5 cm (5' 2 )08/17/2025 4:10 PM EDTBody Mass Index34.19 08/17/2025 4:10 PM EDT Plan of Treatment DateTypeDepartmentCare Team (Latest Contact Info)Lrsnmscvums58/22/2026 2:00 PM EDTOffice Visit Cardiology [address] [place] [address] [place] [address] [place] [address] Return in about 8 months (around 04/17/2026).Health MaintenanceDue DateLast Done CommentsDiabetic Foot Exam1967Dilated Retinal Exam1967Annual PCP Team Chronic Disease Visit1975Anxiety Qsqlepxcz95/10/1975Depression Yuiuhhqdz23/10/1975DTaP,Tdap,Td Vaccine (1 - Tdap)1976Hepatitis A Vaccine (1 of 2 - Risk 2-dose series)1976CT Thqgfeilkmhg69/10/2002Cologuard (FIT-DNA)2002Fecal Occult Blood09/11/20020407Ndxngrumiofdu35/10/2002Shingrix Vaccine (1 of 2)2007Medicare Annual Wellness Visit08/02/2008Hepatitis B Vaccine (1 of 3 - Risk 3-dose series)09/11/20174480Cwbegegxuox01 Colorectal Cancer Qhinjjccb72/14/2019Pneumococcal Vaccine: 50+ (3 of 3 - PCV20 or PCV21)/01/2017, 07/16/2015Mammogram Yallqspme11/15/2023 10/16/2022, 10/16/2022, 04/06/2020, Additional history existsAdvance Directive Nhylzkbnsa33/01/2025Covid-19 Vaccine ( season), 06/19/2021, 05/28/2021Influenza Vaccine (#1)5112/19/2023, 09/12/2019, 10/14/2018, Additional history existsLDL Ycllsetwfwp39, 11/14/2019Urine Albumin:Creatinine RatioHbA1C11/22/2025 05/22/2025, 06/20/2024, 08/04/2023, Additional history existsHepatitis C JidhjwphsEmllpqnlt55/24/2019, 04/22/2019, 03/17/2006Bone Density Screening Oiypztbrv19/27/2023RSV GysvbovIgcfxiikj81/17/2024 Goals GoalPatient Goal TypeAssociated ProblemsRecent ProgressPatient-Stated?Author Blood Pressure < 130/80 Blood Wxubphkr386/76(08/17/2025 4:10 PM EDT)Juan J Perez MD Procedures Procedure NamePriorityDate/TimeAssociated DiagnosisCommentsECG COMPLETERoutine 08/17/2025 4:08 PM EDT Aneurysm of ascending aorta without rupture Essential hypertension Hyperlipidemia, unspecified hyperlipidemia type Obesity, Class III, BMI >= 40 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) (HCC) Smoldering myeloma ECG FWFMTONR84/16/2025 4:08 PM EDTLVEF TRANSTHORACIC RMTZJpeljvt90/16/2025 3:22 PM EDT FKAPMzstsri24/16/2025 3:22 PM EDT Nonrheumatic aortic valve stenosis Aneurysm of ascending aorta without rupture LIPID PANEL, XWISUFGYdlwdhj53/13/2020 10:13 AM EST Atypical chest pain Thoracic ascending aortic aneurysm (HCC) Abnormal stress test Coronary artery disease involving [place] coronary artery of [place] heart without angina pectoris *HEP C NLAvoqzae83/24/2019 1:12 PM EDT Cirrhosis of liver without ascites, unspecified hepatic cirrhosis type (HCC) from Last 3 Months or Most Recently Relevant to Health Maintenance Results * ECG COMPLETE (08/17/2025 4:08 PM EDT)ComponentValueRef RangeTest Method Analysis TimePerformed AtPathologist SignatureVentricular Cktq11BLVFEUVE AND VASCULAR INSTITUTEAtrial Kqpl72CKAXDRXG AND VASCULAR INSTITUTEP-R Qqgmyqtc599 msHEART AND VASCULAR INSTITUTEQRS Sjuxfhjl12mtHWBNX AND VASCULAR INSTITUTEQT Wyspplhk002ryAGKPS AND VASCULAR INSTITUTEQTC Calculation (Stivenzett)422msHEART AND VASCULAR INSTITUTECalculated P Qdvt73qeqduyxHQVTZ AND VASCULAR INSTITUTE Calculated R [place]-4degreesHEART AND VASCULAR INSTITUTECalculated T Axis36 degreesHEART AND VASCULAR INSTITUTESpecimen (Source)Anatomical Location / LateralityCollection Method / VolumeCollection TimeReceived Time08/17/2025 4:08 PM EDT Impressions [facility] - 08/19/2025 11:45 AM EDT NORMAL SINUS RHYTHM Confirmed by ARNULFO HENDERSON M.D. ([id number]) on 08/19/2025 11:45:15 AM Narrative [facility] - 08/19/2025 11:45 AM EDT NAME : MOJGAN SNIDER PID : [id number] : 1955 Gender : Female Race : ORD : [id number] Procedure Date : Aug 17 2025 16:08:55 [...] CodePhone Number [facility] [address] [phone] * ECHO (08/17/2025 3:22 PM EDT)Specimen (Source)Anatomical [...] * * * Final * * * [facility] VASCULAR [place] - 08/17/2025 5:30 PM EDT Echocardiography Report: Transthoracic Echo [facility] Date of service: 08/17/2025 3:22:40 PM [facility] Ordering physician: JUAN J MENDEZ Exam indication: [...] JASSOECHOFinal Result Performing OrganizationAddressCity/State/ZIP CodePhone Number HEART [facility] VASCULAR [place] [address] [place] [address] * LVEF TRANSTHORACIC ECHO (08/17/2025 3:22 PM EDT)ComponentValueRef RangeTest MethodAnalysis TimePerformed AtPathologist SignatureLV Ejection Zcsskusp38% HEART AND VASCULAR INSTITUTEComment: (2D biplane) EF > 54 An LV Ejection Fraction of > 50% is normal Specimen (Source)Anatomical Location / LateralityCollection Method / Volume Collection TimeReceived Time08/17/2025 3:22 PM EDT Narrative Authorizing ProviderResult TypeResult StatusMark E Andrea MDLVEF RESULTSFinal ResultPerforming OrganizationAddressCity/State/ZIP CodePhone Number [facility]ASCULAR [place] [address] [place] [address] * LIPID PANEL BASIC (11/14/2019 10:13 AM EST)ComponentValueRef RangeTest Method Analysis TimePerformed AtPathologist SignatureCholesterol, Hwnzj325<200 mg/dL 11/14/2019 11:05 AM [facility] HzvppgtcmoHykbzjfnhxqd711<150 mg/dL 11/14/2019 11:05 [facility] LaboratoryHDL Zypwauwrfal04>39 mg/dL 11/14/2019 11:05 [facility] LaboratoryLDL Cholesterol, Rtbbgiulji44 <100 mg/dL11/14/2019 11:05 AM [facility] LaboratoryComment: <100 mg/dL, Optimal 100-129 mg/dL, Near optimal/above optimal 130-159 mg/dL, Borderline high 160-189 mg/dL, High >189 mg/dL, Very high Secondary prevention optimal LDL Cholesterol levels are recommended to be < 70 mg/dL Non HDL Viizpihwutd17<130 mg/dL11/14/2019 11:05 AM [facility] Comment: <130 mg/dL, Optimal 130-159 mg/dL, Near optimal/above optimal 160-189 mg/dL, Borderline high 190-219 mg/dL, High >219 mg/dL, Very high Secondary prevention optimal non HDL Cholesterol levels are recommended to be < 100 mg/dL Fasting Tkqr58sqr85/13/2020 10:15 AM [facility] LaboratoryVLDL Cholesterol 22<30 mg/dL11/14/2019 11:05 AM [facility] LaboratoryTC:HDL Ratio2.28<5.10 11/14/2019 11:05 AM [facility] LaboratoryLDL:HDL Ratio0.84<2.54011/14/2019 11:05 AM [facility] LaboratoryComment: Reference: 1. National Cholesterol Education Program ATP III Guideline At-A-Glance Quick Desk Reference: National Heart, Lung, and Blood [place]. National Institutes of Health. 2001: NIH Publication No. 01-3305. 2. An International Atherosclerosis Society position paper: global recommendations for the management of dyslipidemia: executive summary, Atherosclerosis. 2014: 232(2):410-413. Specimen (Source)Anatomical Location / LateralityCollection Method / Volume Collection TimeReceived TimeBlood specimen (specimen)BLOOD SPECIMEN / Unknown 11/14/2019 10:13 AM EST11/14/2019 10:15 AM EST Narrative Authorizing ProviderResult TypeResult StatusJuan J Mendez MDLABORATORYFinal ResultPerforming OrganizationAddressCity/State/ZIP CodePhone Number [facility] [address] [facility] [address] [place] [address], [facility] * HEP REMOTE PANEL BL (05/25/2019 1:12 PM EDT)ComponentValueRef RangeTest Method Analysis TimePerformed AtPathologist SignatureHep B Core Ab, TotalNegative Qvydrtsb39/25/2019 1:25 PM EDTCK[facility]tering [facility] LaboratoriesHep C Antibody IA NcqijjmaMhuqkriu17/25/2019 1:27 PM EDTCKettering Health Troy LaboratoriesHBsAg CyrwwxyqBixfjyye43/25/2019 1:25 PM EDTCKettering Health Troy LaboratoriesHep B Surface Ab, CtvnQwwoyacmWigpdkks28/25/2019 1:26 PM EDTCKettering Health Troy LaboratoriesComment:NEGATIVESpecimen (Source)Anatomical Location / Laterality Collection Method / VolumeCollection TimeReceived TimeBlood specimen (specimen)BLOOD SPECIMEN / Gdzmgoz7505/25/2019 1:12 PM EDT05/25/2019 1:14 PM EDT Narrative Authorizing ProviderResult TypeResult StatusJepiter Yanez APRN.CNPLABORATORY Final ResultPerforming OrganizationAddressCity/State/ZIP CodePhone Number [facility] [address] [place] [address] [facility] [address] [place] [address] from Last 3 Months or Most Recently Relevant to Health Maintenance Insurance * Guarantor: Mojgan Snider TypeRelation to PatientDate of BirthPhone Billing FkkwgjfDxlfyyvzszLznb1955 [address] [place] [address] Care Teams Team MemberRelationshipSpecialtyStart DateEnd Date Vitaliy Thomson MD [address] [place] [address] PCP - [facility] Medicine01/22/15 Daniella Lima NP [address] [place] [address] [facility]04/18/19
--- OUTSIDE RECORDS SUMMARY | 2025-08-28 11:44 | XMS_ITS | Encounter Summary ---
Author Organization [facility] Address [address] [place] [address] Care Team Providers Care Take Away Attendant Name Role Phone Vitaliy Thomson MD Unavailable [phone] Sima Paul RN Unavailable [phone] Power Swain DO Primary Care Provider [phone] Encounter Details DateTypeDepartmentCare Team (Latest Contact Info)Uicmgvkunmz96/15/2025External Result Encounter [facility] External Department Unsolicited Fabiola Marinelli MD [address] [place] [address] Social History Tobacco UseTypesPacks/DayYears UsedDateSmoking [...] on one occasion?Never06/15/2025PHQ-2AnswerDate Recorded Patient Health Questionnaire-2 Pnuey011CommentsNoSex and Gender InformationValueDate RecordedSex Assigned at BirthNot on fileLegal SexFemale 01/14/2023 6:38 PM EDTGender IdentityNot on fileSexual OrientationNot on file OccupationIndustryJob Start DateJob End DateRetiredNot on fileNot on fileNot on filedocumented as of this encounter Plan of Treatment DateTypeDepartmentCare Team (Latest Contact Info)Rfmxpztqvno31/10/2025 10:00 AM ESTOffice Visit [facility] [address], [address] [place] [address] Power Swain, DO [address] [place] [address] NameTypePriorityAssociated DiagnosesDate/TimeCBC auto differentialLabSTAT 08/16/2025 8:14 AM EDTdocumented as of this encounter Procedures Procedure NamePriorityDate/TimeAssociated DiagnosisCommentsSCAN AND CBCSTAT 08/16/2025 8:14 AM EDT documented in this encounter Results * (ABNORMAL) SCAN AND CBC (08/16/2025 8:14 AM EDT)ComponentValueRef RangeTest MethodAnalysis TimePerformed AtPathologist SignatureWBC1.8(L)3.8 - 11.6 [CFU]/mL08/16/2025 8:40 AM [facility] CtrUNCORRECTED WHITE BLOOD COUNT1.8(L)3.8 - 11.6 10*3/uL08/16/2025 8:40 AM [facility] CtrRBC3.45(L)3.60 - 5.00 10*6/uL08/16/2025 8:40 AM [facility] KquARQZSZKLWC66.2(L)11.8 - 15.4 g/dL08/16/2025 8:40 AM EDT [facility] RxzKHIPFGPIKU98.6(L)34.0 - 46.4 %08/16/2025 8:40 AM [facility] UlcLYK48.480 - 100 fL08/16/2025 8:40 AM EDT [facility] XtkOJE49.424.7 - 34.3 pg08/16/2025 8:40 AM [facility] RosKDLB45.432.0 - 35.0 g/dL08/16/2025 8:40 AM [facility] CtrRED CELL DISTRIBUTION WIDTH, RDW15.311.9 - 15.3 %08/16/2025 8:40 AM [facility] CtrPLATELET COUNT44(L)150 - 450 10*3/uL08/16/2025 8:40 AM [facility] CtrMEAN PLATELET VOLUME, MPV7.96.3 - 10.7 fL08/16/2025 8:40 AM [facility] CtrNEUTROPHILS, %36.0. %08/16/2025 9:03 AM [facility] LYMPHOCYTES, %16.6. %08/16/2025 9:03 AM [facility] MONOCYTE/MACROPHAGE, %13.4. %08/16/2025 9:03 AM [facility] CtrEOSINOPHILS, %33.6. %08/16/2025 9:03 AM [facility] BASOPHILS, %0.4. %08/16/2025 9:03 AM [facility] CtrNRBC0.00 - 0.5 /100{WBC}08/16/2025 9:03 AM [facility] NEUTROPHILS0.7(L)1.8 - 7.7 10*3/uL08/16/2025 9:03 AM [facility] CtrLYMPHOCYTES0.3(L)1.00 - 4.8 10*3/uL08/16/2025 9:03 AM [facility] CtrMONOCYTES0.20.0 - 0.8 10*3/uL08/16/2025 9:03 AM [facility] CtrEOSINOPHILS0.6(H)0.0 - 0.45 10*3/uL08/16/2025 9:03 AM [facility] CtrBASOPHILS0.00.0 - 0.2 10*3/uL 08/16/2025 9:03 AM [facility] ObqSDFAIFWOLFLpuacq56/15/2025 9:03 AM [facility] CtrPLATELET ESTIMATEDecreasedNormal 08/16/2025 9:03 AM [facility] CtrPLATELET MORPHOLOGYNormal Yhatew2508/16/2025 9:03 AM [facility] CtrSpecimen (Source) Anatomical Location / LateralityCollection Method / VolumeCollection Time Received TimeBlood (Blood)08/16/2025 8:14 AM EDT1 8:18 AM EDT Narrative Authorizing ProviderResult TypeResult StatusFabiola Marinelli MDLAB BLOOD ORDERABLES Final ResultPerforming OrganizationAddressCity/State/ZIP CodePhone Number [facility] [address] [place] [address], [facility] [address] [facility] [place] [address] documented in this encounter Visit Diagnoses Not on filedocumented in this encounter Additional Health Concerns AssessmentNoted TimePHQ-9 Depression Total Score: 9:00 AM EST documented as of this encounter Care Teams Team MemberRelationshipSpecialtyStart DateEnd Date Vitaliy Thomson MD [address] [place] [address] PCP - [facility]03/26/23 Power Swain DO [address] [place] [address] [place] [address] PCP - GeneralFamily Medicine04/25/25 Sima Paul, [place]ES [address] [place] [address] Registered NurseFamily Fxupcwru12/23/23documented as of this encounter
--- OUTSIDE RECORDS SUMMARY | 2025-08-28 11:44 | XMS_ITS | Clinical Summary ---
Author Organization [facility] Address [address] [place] [address], [address] [place] [address] Care Team Providers Care Clinical Education Coordinator Name Role Phone Unavailable Primary Care Provider Unavailabl e Social History Tobacco UseTypesPacks/DayYears UsedDateSmoking Tobacco: Never Assessed CommentsUnknownSex and Gender InformationValueDate RecordedSex Assigned at Not on fileLegal WwxOxsngt91/10/2013 1:13 PM ESTGender IdentityNot on fileSexual OrientationNot on file Plan of Treatment Not on file
--- OUTSIDE RECORDS SUMMARY | 2025-08-28 11:44 | XMS_ITS | Encounter Summary ---
Author Organization [facility] Address [address] [place] [address] Care Team Providers Care Pool Lifeguard Name Role Phone Vitaliy Thomson MD Unavailable [phone] Sima Paul RN Unavailable [phone] Power Swain DO Primary Care Provider [phone] Encounter Details DateTypeDepartmentCare Team (Latest Contact Info)Zdcyamfxrwk90/23/2025Telephone [facility] [address] [facility], [facility] [address] [place] [address] Power Swain DO [address] [facility] [address] [place] [address] Social History Tobacco UseTypesPacks/DayYears UsedDateSmoking Tobacco: FormerCigarettes [...] on one occasion?Never06/15/2025PHQ-2AnswerDate Recorded Patient Health Questionnaire-2 Nkgpx291CommentsNoSex and Gender InformationValueDate RecordedSex Assigned at BirthNot [...] Plan of Treatment DateTypeDepartmentCare Team (Latest Contact Info)Xuwmozkzvyz86/10/2025 10:00 AM ESTOffice Visit [facility] [place] [facility] [address] [address] [place] [address] Power Swain DO [address] [facility] [address] [place] [address] documented as of this encounter Visit Diagnoses Not on filedocumented in this encounter Additional Health Concerns AssessmentNoted TimePHQ-9 Depression Total Score: 9:00 AM EST documented as of this encounter Care Teams Team MemberRelationshipSpecialtyStart DateEnd Date Vitaliy Thomson MD [address] [place] [address] PCP - [facility]03/26/23 Power Swain DO [address] [facility] [address] [place] [address] PCP - GeneralFamily Medicine04/25/25 Sima Paul RN [address] [place] [address] Registered NurseFamily Pfnoaipu30/23/23documented as of this encounter
--- OUTSIDE RECORDS SUMMARY | 2025-08-28 11:44 | XMS_ITS | Encounter Summary ---
Author Organization [facility] Address [address] [place] [address] Care Team Providers Care Button Facing Machine Operator Name Role Phone Vitaliy Thomson MD Unavailable [phone] Sima Paul RN Unavailable [phone] Power Swain DO Primary Care Provider [phone] Encounter Details DateTypeDepartmentCare Team (Latest Contact Info)Dottpimmhbg14/20/2025Telephone [facility] [address] [place] [address] Polina Ferrari MA Social History Tobacco UseTypesPacks/DayYears [...] on one occasion?Never06/15/2025PHQ-2AnswerDate Recorded Patient Health Questionnaire-2 Vdcea703CommentsNoSex and Gender InformationValueDate RecordedSex Assigned at BirthNot [...] Plan of Treatment DateTypeDepartmentCare Team (Latest Contact Info)Jlkaiusvqhx19/10/2025 10:00 AM ESTOffice Visit [facility] [facility] [address] [place] [address] Power Swain DO [address] [place] [address] documented as of this encounter Visit Diagnoses Not on filedocumented in this encounter Additional Health Concerns AssessmentNoted TimePHQ-9 Depression Total Score: 001/ 9:00 AM EST documented as of this encounter Care Teams Team MemberRelationshipSpecialtyStart DateEnd Date Vitaliy Thomson MD [address] [place] [address] PCP - [facility]03/26/23 Power Swain DO [address] [address] PCP - GeneralFamily Medicine04/25/25 Sima Paul RN [address] [place] [address] Registered NurseFamily Kcxozofh57/23/23documented as of this encounter
--- OUTSIDE RECORDS SUMMARY | 2025-08-28 11:44 | XMS_ITS ---
Author Organization [facility] Address [address] [place] [address] Phone Care Team Providers Care Real Estate Closer Name Role Phone Supa Lindquist MD PhD Unavailable [phone] Jessica Grove RN Unavailable Unavailable Lisette Perkins JUICE PACKAGING MACHINES SETTER-LOGGING RAFTER LABORER Unavailable [phone] Theresa Romano MD PhD Unavailable [phone] Negro Epps MD PhD Unavailable [phone] Power Swain DO Primary Care Provider [phone] Active Problems ProblemNoted DateDiagnosed DateMultiple myeloma not having achieved remission 7204Uzkzruhrbnwa96/13/2023 Assessment & Plan (08/17/2023 7:42 AM EDT): Due to disease and chemotherapy Transfuse for Hgb < 7 g/dL and platelets < 10 k/uL or bleeding Assessment & Plan (08/14/2023 11:02 AM EDT): :: Due to disease and chemotherapy - Transfuse for Hgb < 7 g/dL and platelets < 10 k/uL or bleeding Fecihvlmjtwv30/04/3524Junrzumrqcpqpc54/04/2023Type 2 diabetes zrxykffz09/04/2023 Peripheral wjpiclkhhb55/04/2023Multiple hgntupc3508/03/2023 Assessment & Plan (09/28/2023 6:52 PM EST): Referral from Dr. Marinelli at [facility]. MGUS since [address] [facility] [address] [...] radiation field this may not be entirely field sales representative. Also clonal evolution in the [...] Plan, so I will enter these outside Gnnmlrnfaw43/19/2835Yjylxeiwaaeh89/19/1920Vzirojuwemgtwulphievl45/19/2023 Immunodeficiency qqoytuik76/06/2021 Assessment & Plan (02/14/2024 6:23 PM EDT): Infection prophylaxis VZV: Acyclovir 400 mg PO BID PJP: Trimethoprim-sulfamethoxazole 800-160 mg PO 3x weekly Hypogammaglobulinemia IVIG given 09/22/23, 10/29/23 ([facility]) 12/08/23 01/12/24 02/12/24. Cont monthly. Assessment & Plan (01/28/2024 12:26 PM EDT): Infection prophylaxis VZV: Acyclovir 400 mg PO BID PJP: Trimethoprim-sulfamethoxazole 800-160 mg PO 3x weekly Hypogammaglobulinemia IVIG given 09/22/23, 10/29/23 ([facility]) 12/08/23 and 01/12/24. Cont monthly. Assessment & Plan (01/14/2024 10:27 AM EDT): Infection prophylaxis VZV: Acyclovir 400 mg PO BID PJP: Trimethoprim-sulfamethoxazole 800-160 mg PO 3x weekly Hypogammaglobulinemia IVIG given 09/22/23, 10/29/23 ([facility]) and 12/08/23. Plan next today 01/12/24. Assessment & Plan (01/03/2024 11:33 AM EST): Infection prophylaxis VZV: Acyclovir 400 mg PO BID PJP: Trimethoprim-sulfamethoxazole 800-160 mg PO 3x weekly Hypogammaglobulinemia IVIG given 09/22/23, 10/29/23 ([facility]) and 12/08/23. Plan next dose 01/05/24. Assessment & Plan (11/28/2023 4:08 PM EST): Infection prophylaxis VZV: Acyclovir 400 mg PO BID PJP: Trimethoprim-sulfamethoxazole 800-160 mg PO 3x weekly Hypogammaglobulinemia IVIG given 09/22/23 and 10/29/23 ([facility]) Plan next dose 12/08/23 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)07/11/2019 Primary localized osteoarthrosis of ankle and foot06/01/2019Chronic obstructive pulmonary fkpkvbh6404/19/2019Smoldering jcdgeco9204/19/2019Thoracic aortic aneurysm without jpyviii6104/15/2019GERD (gastroesophageal reflux disease)04/07/2018Morbid hjpeqpu4311/11/2017Familial ojkxpwzgsjmoqyhyzdck72/12/2015Thrombocytopenia 05/31/2014Sleep apnea04/15/2006Monoclonal /25/2006 Current Treatment and Therapy Plans Blood Products, [...] of 13 cycles startedTeclistamab (Weekly), 28 Day Zassij72/* teclistamab-cqyv (Tecvayli) Change in Level of CareSupa Lindquist MD PhD2 of 3 cycles started Resolved Problems ProblemNoted DateDiagnosed DateResolved DateImmunosuppressed aefgwx8008/14/2023 11/27/2023 Assessment & Plan (11/18/2023 12:39 PM EST): Infection prophylaxis VZV: Continue acyclovir 400 mg PO BID PJP: Continue trimethoprim-sulfamethoxazole 800-160 mg PO 3x weekly Hypogammaglobulinemia IVIG given 09/22/23 and 10/29/23 ([facility]) Assessment & Plan (08/17/2023 7:42 AM EDT): - VZV: Continue acyclovir 400 mg PO BID - PJP: Continue trimethoprim-sulfamethoxazole 800-160 mg PO 3x weekly Assessment & Plan (08/14/2023 10:20 AM EDT): - VZV: Continue acyclovir 400 mg PO BID - PJP: Continue trimethoprim-sulfamethoxazole 800-160 mg PO 3x weekly Multiple myeloma, remission status mnrhoatwjnk16Obesity, Class III, BMI 40-49.9 (morbid obesity)typical chest pain Vitamin D jglznvyksa94
--- OUTSIDE RECORDS SUMMARY | 2025-08-28 11:44 | XMS_ITS | Encounter Summary ---
Author Organization [facility] Address [address] [place] [address] Care Team Providers Care Field Court Researcher Name Role Phone Vitaliy Thomson MD Unavailable [phone] Sima Paul RN Unavailable [phone] Power Swain DO Primary Care Provider [phone] Encounter Details DateTypeDepartmentCare Team (Latest Contact Info)Reqdncivhod07/22/2025Results Follow-Up [facility] [address], [address] [place] [address] Power Swain DO [address] [facility] [address] [place] [address] POCT rapid strep A manually resulted, PNEUMONIA [...] on one occasion?Never06/15/2025PHQ-2AnswerDate Recorded Patient Health Questionnaire-2 [id number] and Gender InformationValueDate RecordedSex Assigned at BirthNot on fileLegal SexFemale 01/14/2023 6:38 PM EDTGender IdentityNot on fileSexual OrientationNot on file OccupationIndustryJob Start DateJob End DateRetiredNot on fileNot on fileNot on filedocumented as of this encounter Plan of Treatment DateTypeDepartmentCare Team (Latest Contact Info)Nfjizgxlyjk86/10/2025 10:00 AM ESTOffice Visit [facility] [place] [facility] [address], [address] [place] [address] Power Swain DO [address] [place] [address] documented as of this encounter Visit Diagnoses Diagnosis Pseudomonas infection- Primary documented in this encounter Additional Health Concerns AssessmentNoted TimePHQ-9 Depression Total Score: 9:00 AM EST documented as of this encounter Care Teams Team MemberRelationshipSpecialtyStart DateEnd Date Vitaliy Thomson MD [address] [place] [address] PCP - ACO Reach03/26/23 Power Swain DO [address] [facility] [place] [address] PCP - GeneralFamily Medicine04/25/25 Sima Paul, LES [address] [place] [address] Registered NurseFamily Tmexyync33/23/23documented as of this encounter
--- OUTSIDE RECORDS SUMMARY | 2025-08-28 11:44 | XMS_ITS | Encounter Summary ---
Author Organization [facility] Address [address] [place] [address] Care Team Providers Care Clinical Dietician Name Role Phone Vitaliy Thomson MD Unavailable [phone] Sima Paul RN Unavailable [phone] Power Swain DO Primary Care Provider [phone] Encounter Details DateTypeDepartmentCare Team (Latest Contact Info)Bpkktjqliuw24/17/2025bstract [facility] [address] [facility] [place] [address] Power Swain DO [address] [facility] [address] [place] [address] Social History Tobacco UseTypesPacks/DayYears UsedDateSmoking Tobacco: FormerCigarettes [...] on one occasion?Never06/15/2025PHQ-2AnswerDate Recorded Patient Health Questionnaire-2 [id number] and Gender InformationValueDate RecordedSex Assigned at BirthNot on fileLegal SexFemale 01/14/2023 6:38 PM EDTGender IdentityNot on fileSexual OrientationNot on file OccupationIndustryJob Start DateJob End DateRetiredNot on fileNot on fileNot on filedocumented as of this encounter Plan of Treatment DateTypeDepartmentCare Team (Latest Contact Info)Ckkciktpctz07/10/2025 10:00 AM ESTOffice Visit [facility] [place] [facility] [address], [facility] [address] [place] [address] Power Swain DO [address] [facility] [address] [place] [address] documented as of this encounter Visit Diagnoses Not on filedocumented in this encounter Additional Health Concerns AssessmentNoted TimePHQ-9 Depression Total Score: 9:00 AM EST documented as of this encounter Care Teams Team MemberRelationshipSpecialtyStart DateEnd Date Vitaliy Thomson MD [address] [place] [address] PCP - ACO Reach03/26/23 Power Swain DO [address] [facility] [address] [place] [address] PCP - GeneralFamily Medicine04/25/25 Sima Paul, LES [address] [place] [address] Registered NurseFamily Ypqfzjna87/23/23documented as of this encounter
--- OUTSIDE RECORDS SUMMARY | 2025-08-28 11:44 | XMS_ITS | Clinical Summary ---
Author Organization [facility] Address [address] [place] [address] Phone Care Team Providers Care Trimmer Loader Name Role Phone Supa Lindquist MD PhD Unavailable [phone] Jessica Grove RN Unavailable Unavailable Lisette Perkins SEMICONDUCTOR WAFERS TESTER-PSYCHOLOGY INSTRUCTOR Unavailable [phone] Theresa Romano MD PhD Unavailable [phone] Negro Epps MD PhD Unavailable [phone] Power Swain DO Primary Care Provider [phone] Allergies Active AllergyReactionsCriticalityNoted ZlbsWssgnedrGokxwhfqUshhdZix15/14/2016 AmoxicillinSwelling,DtszLzo23//0389PspouhrknwYwtdytrVhl58/20/2023Moxifloxacin YtnaEhz1808/04/20231008NhyrznrgqqYqjevOqn12/24/6777LejbvbkapmrnCamhzIlb72/30/2013Latex Hives,DcwcPzrkew16/03/2023TetracyclinesHives,JuwvZuwkam73/03/2023 Medications MedicationSigDispense QuantityRefillsLast FilledStart DateEnd DateStatus albuterol [...] TIMES DAILY FOR PAIN FOR 30 DAYS02/11/2024ctive tvkyxtyqvt-aexxfbxw-eqfqrgllix (Breztri Aerosphere) 160-9-4.8 mcg/actuation HFA aerosol inhaler [...] TO 4 TIMES PER DAY NEEDED FOR OSAFXNJEBXD06/15/2025Active Ozempic 0.25 mg or 0.5 mg (2 mg/3 mL) pen injector Inject 0.5 mg under the skin 1 (one) time per week.08/23/2024ctive spironolactone (Aldactone) 50 mg tablet Take 1 tablet (50 mg) by mouth early in the morning..10/06/2024ctive Active Problems ProblemNoted DateDiagnosed DateMultiple myeloma not having achieved remission 10/20/20233704Elqgasprbouh45/13/2023 Assessment & Plan (08/17/2023 7:42 AM EDT): Due to disease and chemotherapy Transfuse for Hgb < 7 g/dL and platelets < 10 k/uL or bleeding Assessment & Plan (08/14/2023 11:02 AM EDT): :: Due to disease and chemotherapy - Transfuse for Hgb < 7 g/dL and platelets < 10 k/uL or bleeding Diprwjbcapow99/04/0066Nnchehsxeqxwwi10/04/2023Type 2 diabetes pyszpwda77/04/2023 Peripheral iqqtkjuxxb50/04/2023Multiple yrtrsks0308/03/2023 Assessment & Plan (09/28/2023 6:52 PM EST): Referral from Dr. Marinelli at [facility]. MGUS since 2005 Followed at [facility] by Dr. Kumari, and [...] radiation field this may not be entirely hr representative. Also clonal evolution in the marrow [...] Plan, so I will enter these outside Hqmliebmio83/19/6817Tfuhjretcbgw57/19/5747Axnyemhxoaxazlogzsshm73/19/2023 Immunodeficiency yntyzukx71/06/2021 Assessment & Plan (02/14/2024 6:23 PM EDT): [...] osteoarthrosis of ankle and foot06/01/2019Chronic obstructive pulmonary diggjhp7304/19/2019Smoldering twbrsxh2804/19/2019Thoracic aortic aneurysm without iyjaznp9904/15/2019GERD (gastroesophageal reflux disease)04/07/2018Morbid ucljdtv6111/11/2017Familial evtuvtjnnhiuwhjsbmhp48/12/2015Thrombocytopenia 05/31/2014Sleep apnea04/15/2006Monoclonal oljvxzlpwuwbtds80/25/2006 Resolved Problems ProblemNoted DateDiagnosed DateResolved DateImmunosuppressed bpgwrv3708/14/2023 11/27/2023 Assessment & Plan (11/18/2023 12:39 PM [...] PO 3x weekly Multiple myeloma, remission status culrbxkilxw06Obesity, Class III, BMI 40-49.9 (morbid obesity)typical chest pain Vitamin D wsrffbfkej27 Encounters DateTypeDepartmentCare OidgCxhtprxtcvg04/21/2025 7:57 AM EDTAnesthesia Event [facility] [address] [place] [phone] Justus Rodriguez MD Patterson, George W, [facility] 06/22/2025 5:57 AM EDT - 06/22/2025 11:59 PM EDTHospital Encounter [address] [address] Liver cell carcinoma (Multi) Discharge Disposition: Home06/22/2025 5:56 AM EDTHospital Encounter [address] [address] Liver cell carcinoma (Multi) Discharge Disposition: Home06/22/2025Travelfrom Last 3 Months Immunizations ImmunizationAdministration DatesNext DueFlu vaccine (IIV4), preservative free *Check age/dose*09/12/2019,10/14/2018Influenza, Upfnjdlefjl51/11/2019Influenza, seasonal, kdnquitbal35/14/2015Influenza, seasonal, intradermal, preservative free10/05/2017Pneumococcal conjugate vaccine, 13-valent (PREVNAR 13)07/16/2015 Pneumococcal polysaccharide vaccine, 23-valent, age 2 years and older (PNEUMOVAX 23)10/05/2017 Family History Medical HistoryRelationNameCommentsLung cancerBrotherCancerFatherCoronary artery diseaseFatherLeukemiaMaternal GrandmotherCancerMotherCancerPaternal Grandmother Breast cancerSisterRelationNameStatusCommentsBrotherFatherMaternal Grandmother MotherPaternal GrandmotherSister Social History Tobacco UseTypesPacks/DayYears UsedDateSmoking Tobacco: UgodseTjuninymho169.7 11/02/1976 - 08/02/2003Passive Smoke Exposure: PastSmokeless Tobacco: [...] RecordedSex Assigned at BirthNot on file Legal ShyLivfcv17/25/2022 4:17 PM ESTGender IdentityNot on fileSexual TvjdkfejvgvNbttezbn98/21/2025 6:11 AM EDT Last Filed Vital Signs Vital SignReadingTime TakenCommentsBlood Agbmxqsm881/6208 12:41 PM EDT Qzisw428706/22/2025 12:41 PM GKHXrhntiqhmen83.4 ??C (97.5 ??F)06/22/2025 12:41 PM EDTRespiratory Afuc046706/22/2025 12:41 PM EDTOxygen Opzuerdmen73%06/22/2025 12:41 PM EDTInhaled Oxygen Concentration--Uhoifq00.5 kg (193 lb)06/22/2025 6:39 AM EDT Vkdndj355.5 cm (5' 2 )06/22/2025 6:39 AM EDTBody Mass Index35.308 6:39 AM EDT Plan of Treatment Health MaintenanceDue DateLast DoneCommentsCT Mylpymedmaxh1957FIT-DNA (Cologuard)1957FIT1955 8272Riwxtvzscsaek1957MMR Vaccines (1 of 1 - Standard series)1958COVID-19 Vaccine (#1)1962Hepatitis C Screening 1975Hepatitis A Vaccines (1 of 2 - Risk 2-dose series)1976Zoster Vaccines (1 of 2)1976DTaP/Tdap/Td Vaccines (1 - Tdap)1979Hepatitis B Vaccines (1 of 3 - Risk 3-dose series)2017Diabetes: Retinopathy Screening /Pneumococcal Vaccine (3 of 3 - PCV20 or PCV21)10/05/2022 10/05/2017, 07/16/20157122Izefqrfuo18/15/202312/, 10/16/2022, 04/06/2020 Diabetes: Hemoglobin A1C01/03/260121/12/2022Medicare Annual Wellness Visit (AWV) /, 11/22/2021, 11/23/2020, Additional history existsBone Density Scan5012/29/2022, 12/29/2022Influenza Vaccine (#1)2025 10/18/2024, 09/12/2019, 09/12/2019, Additional history existsDiabetes: Urine Protein Optyljlqa72, 11/30/2023Lipid Panel Qsbaxtidxmc16, 05/01/2015Colorectal Cancer Dlsptjjtw45/14/2028 Welcome to Medicare DrfjdDdpnyapqxqwu05/30/2023, 11/22/2021, 11/23/2020, Additional history existsRSV High Risk: (Elderly (60+) or Population) Demvmevbp09/17/2024HIB VaccinesAged OutNo longer eligible based on patient's [...] 9:[address] GUIDED RF ABLATION PEQGJKxotyhj09/21/2025 9:06 AM EDT Liver cell carcinoma (Multi) US GUIDED RF ABLATION NPEALHhgbuic08/21/2025 8:53 AM EDT Liver cell carcinoma (Multi) PULSE OXIMETRY, FWLYLWXDKSYugtzyg96/21/2025 8:47 AM EDTPR AN ELECTIVE ENDOTRACHEAL IJGFVHFhkgfpx57/21/2025 8:05 AM EDT POCT PJRCGCRQzigtdq46/21/2025 6:46 AM EDT BASIC METABOLIC EEOHLDVIY80/21/2025 6:33 AM EDT PROTIME-IQZSJIZ5306/22/2025 6:33 AM EDT HTBYRBA2006/22/2025 6:33 AM EDT HEMOGLOBIN G6DHcsuyqj64/03/2023 2:49 AM EDT from Last 3 Months or Most Recently Relevant to Health Maintenance Results * POCT GLUCOSE (06/22/2025 9:58 AM EDT)ComponentValueRef RangeTest Method Analysis TimePerformed AtPathologist SignaturePOCT Dtdjswx7462 - 99 mg/dL 06/22/2025 10:00 AM EDTST [facility] LABSpecimen (Source)Anatomical Location / LateralityCollection Method / VolumeCollection TimeReceived Time BloodCapillary blood specimen / Coxrasx5406/22/2025 9:58 AM EDT06/22/2025 10:00 AM EDT Narrative Authorizing ProviderResult TypeResult StatusInterface UnspecifiedproviderLAB POINT OF CARE TEST DOCKED DEVICE UNSOLICITED RESULTSFinal ResultPerforming OrganizationAddressCity/State/ZIP CodePhone Number [facility] [address] [address] [phone] * CT guided RF ablation liver (06/22/2025 9:06 AM EDT)Anatomical Region LateralityModalityBody Angio, BodyComputed TomographySpecimen (Source) Anatomical Location / LateralityCollection Method / VolumeCollection Time Received Time06/22/2025 3:58 PM EDT06/22/2025 3:58 PM EDT Impressions 06/22/2025 3:[address] and ultrasound-guided microwave ablation of a segment 6 hepatocellular carcinoma as described above ? Signed by: Дмитрий Flores 06/22/2025 3:56 PM Dictation workstation: ?? [id number] Narrative 06/22/2025 3:56 PM EDT Interpreted By: Дмитрий Flores, STUDY: CT GUIDED RF ABLATION LIVER; US GUIDED RF ABLATION LIVER; 06/22/2025 9:06 am; 06/22/2025 8:53 am ?? INDICATION: Signs/Symptoms:HCC microwave ablation; Signs/Symptoms:microwave ablation for HCC. ?? COMPARISON: MR abdomen 04/17/2025 ?? ACCESSION NUMBER(S): [id number]; [id number] ?? ORDERING CLINICIAN: LÁZARO NICHOLAS ?? TECHNIQUE: JOINT CLEANING MACHINE OPERATOR: Дмитрий Flores MD ?? CONSENT: The [...] on the CT scan table. An initial scout professional sports CT was performed, demonstrating the 1.9 cm hypoattenuating lesion in segment 6 of the liver consistent with the known hepatocellular carcinoma. The skin was marked, prepped, and draped in a sterile fashion. ?? Next, the liver was evaluated sonographically, demonstrating a 1.9 x 1.8 cm hypoechoic lesion in segment 6 corresponding to the scout professional sports CT scan and prior imaging. Under direct [...] HCC. COMPARISON: MR abdomen 04/17/2025 ACCESSION NUMBER(S): [id number]; [id number] ORDERING CLINICIAN: LÁZARO NICHOLAS TECHNIQUE: JOINT CLEANING MACHINE OPERATOR: Дмитрий Flores MD CONSENT: The patient [...] on the CT scan table. An initial scout professional sports CT was performed, demonstrating the 1.9 cm hypoattenuating lesion in segment 6 of the liver consistent with the known hepatocellular carcinoma. The skin was marked, prepped, and draped in a sterile fashion. Next, the liver was evaluated sonographically, demonstrating a 1.9 x 1.8 cm hypoechoic lesion in segment 6 corresponding to the scout professional sports CT scan and prior imaging. Under direct [...] Дмитрий Flores 06/22/2025 3:56 PM Dictation workstation: [id number] Authorizing ProviderResult TypeResult StatusAlex Ching Nicholas SEMICONDUCTOR WAFERS TESTER-CNPIMG CT PROCEDURESFinal Result * US guided RF ablation liver (06/22/2025 8:53 AM EDT)Anatomical Region LateralityModalityBody Angio, LiverUltrasoundSpecimen (Source)Anatomical Location / LateralityCollection Method / VolumeCollection TimeReceived Time 06/22/2025 3:58 PM EDT06/22/2025 3:58 PM EDT Impressions 06/22/2025 3:[address] and ultrasound-guided microwave ablation of a segment 6 hepatocellular carcinoma as described above ? Signed by: Дмитрий Flores 06/22/2025 3:56 PM Dictation workstation: ?? [id number] Narrative 06/22/2025 3:56 PM EDT Interpreted By: Дмитрий Flores, STUDY: CT GUIDED RF ABLATION LIVER; US GUIDED RF ABLATION LIVER; 06/22/2025 9:06 am; 06/22/2025 8:53 am ?? INDICATION: Signs/Symptoms:HCC microwave ablation; Signs/Symptoms:microwave ablation for HCC. ?? COMPARISON: MR abdomen 04/17/2025 ?? ACCESSION NUMBER(S): [id number]; [id number] ?? ORDERING CLINICIAN: LÁZARO NICHOLAS ?? TECHNIQUE: JOINT CLEANING MACHINE OPERATOR: Дмитрий Flores MD ?? CONSENT: The [...] on the CT scan table. An initial scout professional sports CT was performed, demonstrating the 1.9 cm hypoattenuating lesion in segment 6 of the liver consistent with the known hepatocellular carcinoma. The skin was marked, prepped, and draped in a sterile fashion. ?? Next, the liver was evaluated sonographically, demonstrating a 1.9 x 1.8 cm hypoechoic lesion in segment 6 corresponding to the scout professional sports CT scan and prior imaging. Under direct [...] HCC. COMPARISON: MR abdomen 04/17/2025 ACCESSION NUMBER(S): [id number]; [id number] ORDERING CLINICIAN: LÁZARO NICHOLAS TECHNIQUE: JOINT CLEANING MACHINE OPERATOR: Дмитрий Flores MD CONSENT: The patient [...] on the CT scan table. An initial scout professional sports CT was performed, demonstrating the 1.9 cm hypoattenuating lesion in segment 6 of the liver consistent with the known hepatocellular carcinoma. The skin was marked, prepped, and draped in a sterile fashion. Next, the liver was evaluated sonographically, demonstrating a 1.9 x 1.8 cm hypoechoic lesion in segment 6 corresponding to the scout professional sports CT scan and prior imaging. Under direct [...] Дмитрий Flores 06/22/2025 3:56 PM Dictation workstation: [id number] Authorizing ProviderResult TypeResult StatusAlex Ching Nicholas SEMICONDUCTOR WAFERS TESTER-[facility] PROCEDURESFinal Result * NV AN ELECTIVE ENDOTRACHEAL AIRWAY (06/22/2025 8:05 AM [...] EDT)ComponentValueRef RangeTest Method Analysis TimePerformed AtPathologist SignaturePOCT Vftjsyp6293 - 99 mg/dL 06/22/2025 6:49 AM [facility] LABSpecimen (Source)Anatomical Location / LateralityCollection Method / VolumeCollection TimeReceived Time BloodCapillary blood specimen / Udtaagb3806/22/2025 6:46 AM EDT06/22/2025 6:49 AM EDT Narrative Authorizing ProviderResult TypeResult StatusInterface UnspecifiedproviderLAB POINT OF CARE TEST DOCKED DEVICE UNSOLICITED RESULTSFinal ResultPerforming OrganizationAddressCity/State/ZIP CodePhone Number [facility] [address] [place] [address] [phone] * (ABNORMAL) Protime-INR (06/22/2025 6:33 AM EDT)ComponentValueRef RangeTest MethodAnalysis TimePerformed AtPathologist NpajbrlyeQehyhbm15.3(H)9.8 - 12.4 seconds LAB COAGULATION METHOD 06/22/2025 7:10 AM [facility] LABINR1.3(H)0.9 - 1.1 LAB COAGULATION METHOD 06/22/2025 7:10 AM [facility] LABSpecimen (Source)Anatomical Location / LateralityCollection Method / VolumeCollection TimeReceived TimeBlood Venous blood specimen / UnknownVenipuncture / Wficdcm3806/22/2025 6:33 AM EDT 06/22/2025 6:43 AM EDT Narrative Authorizing ProviderResult TypeResult StatusДмитрий KIRKPATRICK BLOOD ORDERABLESFinal ResultPerforming OrganizationAddressCity/State/ZIP CodePhone Number [facility] [address] [place] [address] * (ABNORMAL) CBC (06/22/2025 6:33 AM EDT)ComponentValueRef RangeTest Method Analysis TimePerformed AtPathologist SignatureWBC1.6(L)4.4 - 11.3 x10*3/uL LAB HEMATOLOGY METHOD 06/22/2025 7:37 AM [facility] LABnRBC0.00.0 - 0.0 /100 WBCs LAB HEMATOLOGY METHOD 06/22/2025 7:37 AM [facility] LABRBC3.21(L)4.00 - 5.20 x10*6/uL LAB HEMATOLOGY METHOD 06/22/2025 7:37 AM [facility] BNJUogplsxshr66.5(L)12.0 - 16.0 g/dL LAB HEMATOLOGY METHOD 06/22/2025 7:37 AM [facility] WFAXibthvrscs90.2(L)36.0 - 46.0 % LAB HEMATOLOGY METHOD 06/22/2025 7:37 AM [facility] XUYMTT18159 - 100 fL LAB HEMATOLOGY METHOD 06/22/2025 7:37 AM [facility] NNCMLR80.726.0 - 34.0 pg LAB HEMATOLOGY METHOD 06/22/2025 7:37 AM [facility] RIKKFZW73.632.0 - 36.0 g/dL LAB HEMATOLOGY METHOD 06/22/2025 7:37 AM [facility] UFMUKH10.911.5 - 14.5 % LAB HEMATOLOGY METHOD 06/22/2025 7:37 AM [facility] DVMAbaveegnp65(L)150 - 450 x10*3/uL LAB HEMATOLOGY METHOD 06/22/2025 7:37 AM [facility] LABComment:Platelet count verified by smear reviewSpecimen (Source)Anatomical Location / LateralityCollection Method / VolumeCollection TimeReceived TimeBloodVenous blood specimen / Unknown Venipuncture / Vsiuwns5706/22/2025 6:33 AM EDT06/22/2025 6:43 AM EDT Narrative Authorizing ProviderResult TypeResult StatusWimatt KIRKPATRICK BLOOD ORDERABLESFinal ResultPerforming OrganizationAddressCity/State/ZIP CodePhone Number [facility] [address] [place] [address] * (ABNORMAL) Basic Metabolic Panel (06/22/2025 6:33 AM EDT)ComponentValueRef RangeTest MethodAnalysis TimePerformed AtPathologist KlfkadbgaLdqwgfr2230 - 99 mg/dL LAB CHEMISTRY METHOD 06/22/2025 7:03 AM [facility] WILRggddh839819 - 145 mmol/L LAB CHEMISTRY METHOD 06/22/2025 7:03 AM [facility] LABPotassium4.03.5 - 5.3 mmol/L LAB CHEMISTRY METHOD 06/22/2025 7:03 AM [facility] RFNXlufgpbu96210 - 107 mmol/L LAB CHEMISTRY METHOD 06/22/2025 7:03 AM [facility] ZJGOgbbtnytqsx6172 - 32 mmol/L LAB CHEMISTRY METHOD 06/22/2025 7:03 AM [facility] LABAnion Nty2349 - 20 mmol/L LAB CHEMISTRY METHOD 06/22/2025 7:03 AM [facility] LABUrea Djdzsjga071 - 23 mg/dL LAB CHEMISTRY METHOD 06/22/2025 7:03 AM [facility] LABCreatinine0.930.50 - 1.05 mg/dL LAB CHEMISTRY METHOD 06/22/2025 7:03 AM [facility] WGFiZNJ88>60 mL/min/1.73m*2 LAB CHEMISTRY METHOD 06/22/2025 7:03 AM [facility] LABComment: Calculations of estimated GFR are performed using the 2020 CKD-EPI Study Refit equation without therace variable for the IDMS-Traceable creatinine methods. https://jasn.asnjournals.org/content//ASN.2714590996 Calcium8.2(L)8.6 - 10.3 mg/dL LAB CHEMISTRY METHOD 06/22/2025 7:03 AM [facility] LABSpecimen (Source)Anatomical Location / LateralityCollection Method / VolumeCollection TimeReceived TimeBlood Venous blood specimen / UnknownVenipuncture / Qigtjqv0106/22/2025 6:33 AM EDT 06/22/2025 6:43 AM EDT Narrative Authorizing ProviderResult TypeResult StatusДмитрий KIRKPATRICK BLOOD ORDERABLESFinal ResultPerforming OrganizationAddressCity/State/ZIP CodePhone Number [facility] [address] [place] [address] * Hemoglobin A1C (08/04/2023 2:49 AM EDT)ComponentValueRef RangeTest Method Analysis TimePerformed AtPathologist SignatureHemoglobin A1C4.9see below % 08/04/2023 4:08 AM [facility] LABEstimated Average Cgglnto80Qen Established mg/dL08/04/2023 4:08 AM [facility] LABSpecimen (Source)Anatomical Location / LateralityCollection Method / VolumeCollection TimeReceived TimeBloodVenous blood specimen / Skzvvko8508/04/2023 2:49 AM EDT1 3:18 AM EDT Narrative Authorizing ProviderResult TypeResult StatusKevin NOBLE-KEELEY BLOOD ORDERABLESFinal ResultPerforming OrganizationAddressCity/State/ZIP CodePhone Number [facility] [address] [facility] [address] [place] [address] from Last 3 Months or Most Recently Relevant to Health Maintenance Additional Health Concerns Active ProblemsNoted DateDiagnosed DateAutogenerated Wzftnls3505/01/2025 Insurance Advance Directives For more information, please contact: [phone] (Available ) * Full Code (Latest Code Status on File) Date ActivatedDate InactivatedComments11/18/2023 2:23 PMQuestionAnswerComments Plan of Care:* Code Status Discussion Completed Decision Maker:* Patient * Full Code Date ActivatedDate FusovsuceubYpahmhbc60/3/2023 12:24 AM08/13/2023 3:26 PM QuestionAnswerCommentsPlan of Care:* Code Status Discussion Completed Decision Maker:* Patient * Full Code Date ActivatedDate BfydfijgztlWvfaerfj35/3/2023 12:24 AM08/04/2023 12:24 AM QuestionAnswerCommentsPlan of Care:* Code Status Discussion Completed Decision Maker:* Patient Care Teams Team MemberRelationshipSpecialtyStart DateEnd Date Power Swain DO [address] [facility] [place] [address] PCP - [facility]Ch[facility]05/09/25 Supa Lindquist MD PhD [address] [phone] Consulting PhysicianHematology and Suhoiint72/2/23 Jessica Grove, mailroom courier CoordinatorCase Xmukupsvor06/3/23 Lisette Perkins, SEMICONDUCTOR WAFERS TESTER-PSYCHOLOGY INSTRUCTOR Nurse PractitionerHematology and Hdvdhlbb47/13/23 Theresa Romano MD PhD [address] [phone] Consulting PhysicianHematology and Oncology11/18/23 Negro Epps MD PhD [address] [phone] Consulting PhysicianHematology and Oncology01/19/24
--- OUTSIDE RECORDS SUMMARY | 2025-08-28 11:44 | XMS_ITS | Encounter Summary ---
Author Organization [facility] Address [address] [place] [address] Care Team Providers Care Pharmacist Technician Name Role Phone Vitaliy Thomson MD Primary Care Provider [phone] Daniella Lima PORTFOLIO STRATEGIST Unavailable [phone] Source Comments In the event this information is protected by the Federal Confidentiality of Alcohol and Drug AbusePatient Records regulations: The Federal rules restrict any use of the information to criminally investigate or prosecute any alcohol or drug abuse patient.[facility] Encounter Details DateTypeDepartmentCare Team (Latest Contact Info)Mwmgzlousrb14/16/2025Travel Social History Tobacco UseTypesPacks/DayYears UsedDateSmoking Tobacco: CarcifSrzlbzwkjf530 07/25/1986 - 07/25/2009Smokeless Tobacco: NeverAlcohol UseStandard Drinks/Week CommentsNo0 (1 standard drink = 0.6 oz pure alcohol)PHQ-2AnswerDate RecordedPHQ2 Lwxyi337Area Deprivation IndexAnswerDate RecordedNational Score (1-100), lower number is lower raof571804/13/2023State Score (1-10), lower number is lower utml5473Data from: https://www.neighborhoodatlas.[facility]/. Last address used for [address] Arreola3CommentsNoSex and Gender InformationValueDate RecordedSex Assigned at BirthNot on fileLegal Sex Dlwdkm8110/03/2012 8:01 AM ESTGender IdentityNot on fileSexual OrientationNot on filedocumented as of this encounter Functional Status * Are you deaf or do you have serious difficulty hearing?AnswerDate of MlvrnbietbJdmmqtVu84/26/2019 3:12 PM Edilberto Chester RN * Are you blind or do you have serious difficulty seeing, even when wearing glasses?AnswerDate of EfljsbdsvcLfnbvhCv48/26/2019 3:12 PM Edilberto Chester RN * Do you have serious difficulty walking or climbing stairs?AnswerDate of KyjdryccejGlqpmhBh61/26/2019 3:12 PM Edilberto Chester RN * Do you have difficulty dressing or bathing?AnswerDate of AssessmentAuthorNo 04/27/2019 3:12 PM Edilberto Chester RN * Because of a physical, mental, or emotional condition, do you have difficulty doing errands alone such as visiting a doctor's office or shopping?AnswerDate of TkczkxdnqbNhnxsyPp45/26/2019 3:12 PM Edilberto Chester RN documented as of this encounter Mental Status * Because of a physical, mental, or emotional condition, do you have serious difficulty concentrating, remembering, or making decisions?AnswerEntry Date FsxwbjIl01/26/2019 3:12 PM Edilberto Chester RN documented in this encounter Plan of Treatment DateTypeDepartmentCare Team (Latest Contact Info)Sjwuhbanhhv52/22/2026 2:00 PM EDTOffice Visit Cardiology [address] [place] [address] [place] [address] [place], [place] [phone] Return in about 8 months (around 04/17/2026).documented as of this encounter Goals GoalPatient Goal TypeAssociated ProblemsRecent ProgressPatient-Stated?Author Blood Pressure < 130/80 Blood Uumttrme928/76(08/17/2025 4:10 PM EDT)Justus Perez, MDdocumented as of this encounter Visit Diagnoses Not on filedocumented in this encounter Care Teams Team MemberRelationshipSpecialtyStart DateEnd Date Vitaliy Thomson MD [address] [place] [address] PCP - [facility]ally [facility]01/22/15 Daniella Lima NP [address] [place] [address] ReferringFamalden hospital Medicine04/18/19documented as of this encounter
--- OUTSIDE RECORDS SUMMARY | 2025-08-28 11:44 | XMS_ITS | Encounter Summary ---
Author Organization [facility] Address [address] [place] [address] Care Team Providers Care Building Service Worker Name Role Phone Vitaliy Thomson MD Unavailable [phone] Sima Paul RN Unavailable [phone] Power Swain DO Primary Care Provider [phone] Encounter Details DateTypeDepartmentCare Team (Latest Contact Info)Zjekkvademz76/22/2025bstract [facility] Practice [address] [facility] [address], [place] [address] [place] [address] Power Swain DO [address] [facility] [address] [place] [address] Social History Tobacco UseTypesPacks/DayYears UsedDateSmoking Tobacco: FormerCigarettes [...] on one occasion?Never06/15/2025PHQ-2AnswerDate Recorded Patient Health Questionnaire-2 [id number] and Gender InformationValueDate RecordedSex Assigned at BirthNot on fileLegal SexFemale 01/14/2023 6:38 PM EDTGender IdentityNot on fileSexual OrientationNot on file OccupationIndustryJob Start DateJob End DateRetiredNot on fileNot on fileNot on filedocumented as of this encounter Plan of Treatment DateTypeDepartmentCare Team (Latest Contact Info)Hkhbvwzlehl88/10/2025 10:00 AM ESTOffice Visit [facility] [place] [facility] [address], [facility] 340 [place] [address] Power Swain DO [address] [facility] 340 [place] [address] documented as of this encounter Visit Diagnoses Not on filedocumented in this encounter Additional Health Concerns AssessmentNoted TimePHQ-9 Depression Total Score: 9:00 AM EST documented as of this encounter Care Teams Team MemberRelationshipSpecialtyStart DateEnd Date Vitaliy Thomson MD [address] [place] [address] PCP - ACO Reach03/26/23 Power Swain DO [address] [facility] 340 [place] [address] PCP - GeneralFamily Medicine04/25/25 Sima Paul, [place] [address] [place] [address] Registered NurseFamily Avdniqau81/23/23documented as of this encounter
--- OUTSIDE RECORDS SUMMARY | 2025-08-28 11:44 | XMS_ITS | Encounter Summary ---
Author Organization [facility] Address [address] [place] [address] Care Team Providers Care Chemical Weigher Name Role Phone Vitaliy Thomson MD Unavailable [phone] Sima Paul RN Unavailable [phone] Power Swain DO Primary Care Provider [phone] Encounter Details DateTypeDepartmentCare Team (Latest Contact Info)Xkrldxzglec98/15/2025External Result Encounter [facility] External Department Unsolicited Fabiola Marinelli MD [address] [place] [address] Social History Tobacco UseTypesPacks/DayYears UsedDateSmoking [...] on one occasion?Never06/15/2025PHQ-2AnswerDate Recorded Patient Health Questionnaire-2 [id number] and Gender InformationValueDate RecordedSex Assigned at BirthNot on fileLegal SexFemale 01/14/2023 6:38 PM EDTGender IdentityNot on fileSexual OrientationNot on file OccupationIndustryJob Start DateJob End DateRetiredNot on fileNot on fileNot on filedocumented as of this encounter Plan of Treatment DateTypeDepartmentCare Team (Latest Contact Info)Izfgkagqmeb95/10/2025 10:00 AM ESTOffice Visit [facility]eg [facility] [address], [address] [place] [address] Power Swain, [address] [place] [address] [place] [address] documented as of this encounter Procedures Procedure NamePriorityDate/TimeAssociated DiagnosisCommentsMAGNESIUMSTAT 08/16/2025 10:32 AM EDT documented in this encounter Results * (ABNORMAL) Magnesium (08/16/2025 10:32 AM EDT)ComponentValueRef RangeTest MethodAnalysis TimePerformed AtPathologist SignatureMAGNESIUM1.7(L)1.9 - 2.7 mg/dL08/16/2025 11:04 AM EDTFMercy Health [facility] CtrSpecimen (Source) Anatomical Location / LateralityCollection Method / VolumeCollection Time Received TimeOtherTopography unknown / Bwebmvx8108/16/2025 10:32 AM EDT 08/16/2025 10:32 AM EDT Narrative Authorizing ProviderResult TypeResult StatusFabiola Marinelli MDLAB BLOOD ORDERABLES Final ResultPerforming OrganizationAddressCity/State/ZIP CodePhone Number [facility] [address] [facility] [place] [address], [facility] [address] [place] [address] documented in this encounter Visit Diagnoses Not on filedocumented in this encounter Additional Health Concerns AssessmentNoted TimePHQ-9 Depression Total Score: 9:00 AM EST documented as of this encounter Care Teams Team MemberRelationshipSpecialtyStart DateEnd Date Vitaliy Thomson MD [address] [place] [address] PCP - ACO [facility]03/26/23 Power Swain DO [address] [address] PCP - GeneralFamily Medicine04/25/25 Sima Paul RN [address] [place] [address] Registered NurseFamily Eihyivfa99/23/23documented as of this encounter
--- OUTSIDE RECORDS SUMMARY | 2025-08-28 11:44 | XMS_ITS | Encounter Summary ---
Author Organization [facility] Address [address] [place] [address] Care Team Providers Care Cupola Mechanic Name Role Phone Vitaliy Thomson MD Unavailable [phone] Sima Paul RN Unavailable [phone] Power Swain DO Primary Care Provider [phone] Encounter Details DateTypeDepartmentCare Team (Latest Contact Info)Fsntpaxpazy87/15/2025External Result Encounter [facility] External Department Unsolicited Fabiola Marinelli MD [address] [place] [address] Social History Tobacco UseTypesPacks/DayYears UsedDateSmoking [...] on one occasion?Never06/15/2025PHQ-2AnswerDate Recorded Patient Health Questionnaire-2 [id number] and Gender InformationValueDate RecordedSex Assigned at BirthNot on fileLegal SexFemale 01/14/2023 6:38 PM EDTGender IdentityNot on fileSexual OrientationNot on file OccupationIndustryJob Start DateJob End DateRetiredNot on fileNot on fileNot on filedocumented as of this encounter Plan of Treatment DateTypeDepartmentCare Team (Latest Contact Info)Pytuvmymzbi12/10/2025 10:00 AM ESTOffice Visit [facility] [place] [facility] [address], [address] [place] [address] Power Swain, DO [address] [place] [address] documented as of this encounter Procedures Procedure NamePriorityDate/TimeAssociated DiagnosisCommentsIRON AND TOTAL IRON BINDING GBFKVQLHTADN39/15/2025 8:14 AM EDT KARVMOUJELWH80/15/2025 8:14 AM EDT COMPREHENSIVE METABOLIC OSQYCHBHI29/15/2025 8:14 AM EDT documented in this encounter Results * Ferritin (08/16/2025 8:14 AM EDT)ComponentValueRef RangeTest MethodAnalysis TimePerformed AtPathologist GakygkspuBQWXRPNH154.111.0 - 306.8 ng/mL08/16/2025 9:07 AM EDHolzer [facility] CtrSpecimen (Source)Anatomical Location / LateralityCollection Method / VolumeCollection TimeReceived TimeOther Topography unknown / Woztntn4608/16/2025 8:14 AM EDT1 8:18 AM EDT Narrative Authorizing ProviderResult TypeResult StatusFabiola Marinelli MDLAB BLOOD ORDERABLES Final ResultPerforming OrganizationAddressCity/State/ZIP CodePhone Number [facility] [address] [place] [address], [facility] [address] [place] [address] * Iron and TIBC (08/16/2025 8:14 AM EDT)ComponentValueRef RangeTest Method Analysis TimePerformed AtPathologist DrdzytnwmKMOP4652 - 212 ug/dL08/16/2025 8:[address] [facility] CtrTOTAL IRON BINDING QVVIORND134126 - 450 ug/dL08/16/2025 8:[address] [facility] Ctr% IRON SATURATION 23.920 - 50 %08/16/2025 8:[address] [facility] CtrTRANSFERRIN 607860 - 362 mg/dL08/16/2025 8:[address] [facility] CtrSpecimen (Source)Anatomical Location / LateralityCollection Method / VolumeCollection TimeReceived TimeOtherTopography unknown / Nelbunp1508/16/2025 8:14 AM EDT 08/16/2025 8:18 AM EDT Narrative Authorizing ProviderResult TypeResult StatusFabiola Marinelli MDLAB BLOOD ORDERABLES Final ResultPerforming OrganizationAddressCity/State/ZIP CodePhone Number [facility] [address] [place] [address], [facility] [address] [place] [address] * (ABNORMAL) Comprehensive metabolic panel (08/16/2025 8:14 AM EDT)Component ValueRef RangeTest MethodAnalysis TimePerformed AtPathologist SignatureGlucose 109(H)70 - 100 mg/dL08/16/2025 8:[address] [facility] Comment: Random Glucose Reference Range is dependent on time and content of last meal. Glucose of more than 200 mg/dL in a nonstressed, ambulatory subject supports the diagnosis of Diabetes Mellitus. ADA recommended reference range LMI653 - 25 mg/dL08/16/2025 8:[address] [facility] CtrCREATININE 0.990.60 - 1.20 mg/dL08/16/2025 8:[address] [facility] ESTIMATED GFR>60. 8:[address] [facility] SelFnjims673 136 - 145 mmol/L1 8:[address] [facility] CtrPotassium, Bld4.13.5 - 5.1 mmol/L1 8:[address] [facility]tr Lhdxmnih55527 - 107 mmol/L1 8:[address] [facility] Ctr Carbon Fxcmfdc30.521.0 - 31.0 mmol/L1 8:[address] [facility] CtrAnion Gap8.66.0 - 15.010 8:[address] [facility] CtrCalcium9.08.6 - 10.3 mg/dL08/16/2025 8:[address] [facility] CtrTOTAL PROTEIN5.5(L)6.4 - 8.9 g/dL08/16/2025 8:[address] [facility] CtrALBUMIN LEVEL3.63.5 - 5.7 g/dL08/16/2025 8:48 AM [facility] CtrGLOBULIN1.9g/dL08/16/2025 8:[address] [facility] CtrALBUMIN/GLOBULIN RATIO1.91 8:[address] [facility] CtrBILIRUBIN,TOTAL0.90.3 - 1.0 mg/dL08/16/2025 8:48 AM [facility] CtrASPARTATE AMINO VMNXZCVYHND1506 - 39 U/L1 8:[address] [facility] CtrALANINE TROOPNHYVCUGPITC094 - 52 U/L 08/16/2025 8:[address] [facility] CtrALKALINE QHMXDCTXWQY3910 - 104 U/L1 8:[address] [facility] CtrCREATININE CLR CALC GSKRACNB94.181 8:[address] [facility] CtrSpecimen (Source)Anatomical Location / LateralityCollection Method / VolumeCollection TimeReceived TimeOtherTopography unknown / Hsztfnr7708/16/2025 8:14 AM EDT 08/16/2025 8:18 AM EDT Narrative Authorizing ProviderResult TypeResult StatusFabiola Marinelli MDLAB BLOOD ORDERABLES Final ResultPerforming OrganizationAddressCity/State/ZIP CodePhone Number [facility] [address] [place] [address], [facility] [address] [place] [address] documented in this encounter Visit Diagnoses Not on filedocumented in this encounter Additional Health Concerns AssessmentNoted TimePHQ-9 Depression Total Score: 9:00 AM EST documented as of this encounter Care Teams Team MemberRelationshipSpecialtyStart DateEnd Date Vitaliy Thomson MD [address] [place] [address] PCP - ACO [facility]03/26/23 Power Swain DO [address] [place], [place] [address], [place] [address] PCP - GeneralFamily Medicine04/25/25 Sima Paul, LES [address] [place] [address] Registered NurseFamily Fzzzruug94/23/23documented as of this encounter
--- OUTSIDE RECORDS SUMMARY | 2025-08-28 11:44 | XMS_ITS | Encounter Summary ---
Author Organization [facility] Address [address] [place] [address] Care Team Providers Care Field Reviewer Name Role Phone Vitaliy Thomson MD Unavailable [phone] Sima Paul RN Unavailable [phone] Power Swain DO Primary Care Provider [phone] Encounter Details DateTypeDepartmentCare Team (Latest Contact Info)Ionakdntoga51/13/2025bstract [facility] Practice [address] [facility] [address], [address] [place] [address] Power Swain DO [address] [facility] [address] [place] [address] Social History Tobacco UseTypesPacks/DayYears UsedDateSmoking Tobacco: FormerCigarettes [...] on one occasion?Never06/15/2025PHQ-2AnswerDate Recorded Patient Health Questionnaire-2 [id number] and Gender InformationValueDate RecordedSex Assigned at BirthNot on fileLegal SexFemale 01/14/2023 6:38 PM EDTGender IdentityNot on fileSexual OrientationNot on file OccupationIndustryJob Start DateJob End DateRetiredNot on fileNot on fileNot on filedocumented as of this encounter Plan of Treatment DateTypeDepartmentCare Team (Latest Contact Info)Rihjdqftmdt18/10/2025 10:00 AM ESTOffice Visit [facility] [place] [facility] [address], [facility] 340 [place] [address] Power Swain DO [address] [facility] 340 [place] [address] documented as of this encounter Visit Diagnoses Not on filedocumented in this encounter Additional Health Concerns AssessmentNoted TimePHQ-9 Depression Total Score: 9:00 AM EST documented as of this encounter Care Teams Team MemberRelationshipSpecialtyStart DateEnd Date Vitaliy Thomson MD [address] [place] [address] PCP - ACO Re[facility]03/26/23 Power Swain DO [address] [facility] 340 [place] [address] PCP - GeneralFamily Medicine04/25/25 Sima Paul, [place] [address] [place] [id number] Registered NurseFamily Zukzrbja78/23/23documented as of this encounter
[2025-08-28] MEDS: METHYLPREDNISOLONE SOD SUCC PF 125 MG/2 ML VIAL IVP (11:46)
[2025-08-28 11:52] LABS: Lymphocytes Absolute Manual 0.25 10^3/uL (1.20-3.80); Lymphocytes Percent Manual 16.0 % (20.5-60.0)
[2025-08-28 11:53] LABS: Atypical Lymphocytes % Manual 4.0 %; Atypical Lymphocytes Abs Man 0.06; Basophils Abs Manual 0.00 10^3/uL (0.00-0.10); Basophils Percent Manual 0.0 % (0.2-2.0); Eosinophils Absolute Manual 0.00 10^3/uL (0.00-0.70); Eosinophils Percent Manual 0.0 % (0.9-7.0); Monocytes Absolute Manual 0.16 10^3/uL (0.30-0.80); Monocytes Percent Manual 10.0 % (1.7-12.0); Myelocytes % Manual 1.0; Myelocytes Absolute Manual 0.01; Segmented Neut Absolute Manual 1.10 10^3/uL (1.4-6.5); Segmented Neutrophils % Manual 69.0 (43.0-75.0)
[2025-08-28] MEDS: AZITHROMYCIN 500 MG in 0.9 % SODIUM CHLORIDE 250 ML 250 MG IV (13:20)
[2025-08-28] MEDS: OXYCODONE HCL 5 MG TABLET 10 MG PO (18:37)
[2025-08-28] MEDS: INSULIN ASPART 300 UNIT/3 ML PEN SUBQ (21:45)
[2025-08-28] MEDS: CARVEDILOL 12.5 MG TABLET PO (21:45)
[2025-08-28] MEDS: MORPHINE SULFATE 15 MG TABLET.ER PO (21:45)
[2025-08-28] MEDS: METHYLPREDNISOLONE SOD SUCC PF 40 MG/ML VIAL IVP (21:45)
[2025-08-28] MEDS: MELATONIN 5 MG 5 EACH PO (21:46)
[2025-08-29] VITALS (20 sets, daily range): BP systolic 111–141; BP diastolic 73–84; PULSE 72–82; TEMP 36.6–36.8; O2SAT 94–96
[2025-08-29] MEDS: OXYCODONE HCL 5 MG TABLET 10 MG PO ×2 (04:17→16:09)
[2025-08-29] MEDS: PANTOPRAZOLE SODIUM 40 MG TABLET.DR PO (05:38)
[2025-08-29] MEDS: SENNOSIDES/DOCUSATE SODIUM 1 TAB TABLET PO (05:49)
[2025-08-29 06:05] LABS: Hematocrit 35.1 % (36.0-48.0); Hemoglobin 11.9 g/dL (12.0-16.0); Immature Granulocytes Abs Auto 0.09 10^3/uL (0.00-0.03); Immature Granulocytes Pct Auto 3.5 % (0.0-0.5); Lymphocytes Absolute Auto 0.3 10^3/uL (1.2-3.8); Mean Corpuscular HGB Conc 33.9 g/dL (29.9-35.2); Mean Corpuscular Hemoglobin 32.6 pg (26.7-34.0); Mean Corpuscular Volume 96.2 fL (81.0-99.0); Platelet Count 51 10^3/uL (150-450); Red Blood Count 3.65 10^6/uL (4.20-5.40); White Blood Count 2.6 10^3/uL (4.0-11.0)
[2025-08-29 06:26] LABS: Alanine Aminotransferase 52 U/L (14-59); Albumin Globulin Ratio 1.3; Albumin Level 3.4 g/dL (3.4-5.0); Alkaline Phosphatase 115 U/L (46-116); Anion Gap 15.1; Aspartate Amino Transferase 42 U/L (15-37); Blood Urea Nitrogen 27.0 mg/dL (7.0-18.0); Calcium 8.9 mg/dL (8.5-10.1); Carbon Dioxide 27.2 mmol/L (21.0-32.0); Chloride 100 mmol/L (98-107); Estimated GFR (African America >60 (>=60 mL/min/1.73m^2); Estimated GFR (Non-African Ame >60 (>=60 mL/min/1.73m^2); Globulin 2.6 g/dL; Glucose 154 mg/dL (74-106); Magnesium 2.0 mg/dL (1.8-2.4); Potassium 4.3 mmol/L (3.5-5.1); Sodium 138 mmol/L (136-145); Total Protein 6.0 g/dL (6.4-8.2)
[2025-08-29 06:34] LABS: Thyroid Stimulating Hormone 2.149 uIU/mL (0.358-3.740)
--- OUTSIDE RECORDS SUMMARY | 2025-08-29 07:37 | XMS_ITS | Encounter Summary ---
Author Organization [facility] Address [address] [place] [address] Care Team Providers Care Semi Driver Name Role Phone Vitaliy Thomson MD Unavailable [phone] Sima Paul RN Unavailable [phone] Power Swain DO Primary Care Provider [phone] Encounter Details DateTypeDepartmentCare Team (Latest Contact Info)Xifpnkiciiz63/27/2025bstract [facility] Practice [address], [address] [place] [address] Power Swain DO [address] [facility] [address] [place] [address] Social History Tobacco UseTypesPacks/DayYears UsedDateSmoking Tobacco: FormerCigarettes [...] on one occasion?Never06/15/2025PHQ-2AnswerDate Recorded Patient Health Questionnaire-2 Zzugw079CommentsNoSex and Gender InformationValueDate RecordedSex Assigned at BirthNot on fileLegal SexFemale 01/14/2023 6:38 PM EDTGender IdentityNot on fileSexual OrientationNot on file OccupationIndustryJob Start DateJob End DateRetiredNot on fileNot on fileNot on filedocumented as of this encounter Plan of Treatment DateTypeDepartmentCare Team (Latest Contact Info)Mpfnttrpxzp30/10/2025 10:00 AM ESTOffice Visit [facility] [place] [facility] [address], [facility] 340 [place] [address] Power Swain DO [address] [facility] [address] [place] [address] documented as of this encounter Visit Diagnoses Not on filedocumented in this encounter Additional Health Concerns AssessmentNoted TimePHQ-9 Depression Total Score: 9:00 AM EST documented as of this encounter Care Teams Team MemberRelationshipSpecialtyStart DateEnd Date Vitaliy Thomson MD [address] [place] [address] PCP - ACO Reach03/26/23 Power Swain DO [address] [facility] [address] [place] [address] PCP - GeneralFamily Medicine04/25/25 Smia Paul, [place]ES [address] [place] [address] Registered NurseFamily Cnqxtfgn26/23/23documented as of this encounter
--- OUTSIDE RECORDS SUMMARY | 2025-08-29 07:37 | XMS_ITS | Encounter Summary ---
Author Organization [facility] Address [address] [place] [address] Care Team Providers Care Sas Etl Developer Name Role Phone Vitaliy Thomson MD Unavailable [phone] Sima Paul RN Unavailable [phone] Power Swain DO Primary Care Provider [phone] Encounter Details DateTypeDepartmentCare Team (Latest Contact Info)Gomvnbouaqs64/17/2025bstract [facility] Practice [address] [facility] [address], [address] [place] [address] Power Swain DO [address] [facility] [address] [place] [address] Social History Tobacco UseTypesPacks/DayYears UsedDateSmoking Tobacco: FormerCigarettes [...] on one occasion?Never06/15/2025PHQ-2AnswerDate Recorded Patient Health Questionnaire-2 Ucata020CommentsNoSex and Gender InformationValueDate RecordedSex Assigned at BirthNot on fileLegal SexFemale 01/14/2023 6:38 PM EDTGender IdentityNot on fileSexual OrientationNot on file OccupationIndustryJob Start DateJob End DateRetiredNot on fileNot on fileNot on filedocumented as of this encounter Plan of Treatment DateTypeDepartmentCare Team (Latest Contact Info)Ltbbcvcenmv06/10/2025 10:00 AM ESTOffice Visit [facility] [place] [facility] [address], [facility] 340 [place] [address] Power Swain DO [address] [facility] [address] [place] [address] documented as of this encounter Visit Diagnoses Not on filedocumented in this encounter Additional Health Concerns AssessmentNoted TimePHQ-9 Depression Total Score: 9:00 AM EST documented as of this encounter Care Teams Team MemberRelationshipSpecialtyStart DateEnd Date Vitaliy Thomson MD [address] [place] [address] PCP - ACO Re[facility]03/26/23 Power Swain DO [address] [facility] [address] [place] [address] PCP - GeneralFamily Medicine04/25/25 Sima Paul, [place] [address] [place] [address] Registered NurseFamily Oaktyovo09/23/23documented as of this encounter
--- OUTSIDE RECORDS SUMMARY | 2025-08-29 07:37 | XMS_ITS | Encounter Summary ---
Author Organization [facility] Address [address] [place] [address] Care Team Providers Care Cooler Deliverer Name Role Phone Vitaliy Thomson MD Unavailable [phone] Sima Paul RN Unavailable [phone] Power Swain DO Primary Care Provider Encounter Details DateTypeDepartmentCare Team (Latest Contact Info)Rszcgysnfje41/27/2025Telephone [facility] [address] [facility] [address], [facility] 340 [place] [address] Power Swain DO [address] [facility] [address] [place] [address] Social History Tobacco UseTypesPacks/DayYears UsedDateSmoking Tobacco: FormerCigarettes [...] on one occasion?Never06/15/2025PHQ-2AnswerDate Recorded Patient Health Questionnaire-2 [id number] and Gender InformationValueDate RecordedSex Assigned at BirthNot on fileLegal SexFemale 01/14/2023 6:38 PM EDTGender IdentityNot on fileSexual OrientationNot on file OccupationIndustryJob Start DateJob End DateRetiredNot on fileNot on fileNot on filedocumented as of this encounter Miscellaneous Notes * Addendum Note - Power Swain DO - 08/28/2025 1:13 PM EDTAddended by: POWER SWAIN on: 08/28/2025 01:13 PM Modules accepted: Orders * Telephone Encounter - Power Swain DO - 08/28/2025 1:12 PM EDT Please let patient know I sent in DuoNeb solution for nebulizer to her pharmacy however I am waiting for ER report back to see what else they reported to see if I need to send anything else. Have hercjose back before 4:00 today if she has not heard from us by then * Telephone Encounter - Power Swain DO - 08/28/2025 1:11 PM EDT Can you see if we can get ER report from [facility] * Telephone Encounter - Yeni Swain - 08/28/2025 10:05 AM EDT Returned call to patient... patient indicated Medication from ER visit was DUONEB - did help her with breathing would like prescription if possible called in to [facility] pharmacy. * Telephone Encounter - Power Swain DO - 08/28/2025 10:03 AM EDT Okjaniya Jaime is calling her back to tell her we are looking into it and to see what meds they put her on. Can you call [place] and have them fax over the ER report KEVON if possible please * Telephone Encounter - Yeni Brynn - 08/28/2025 8:16 AM EDT Went to [place] ER last nite. They gave some medication that helped with breathing. Patient states still having breathing problems and trouble today Would like more medications for breathing. documented in this encounter Plan of Treatment DateTypeDepartmentCare Team (Latest Contact Info)Pbjwqhyjndp19/10/2025 10:00 AM ESTOffice Visit [facility] [place] [facility] [address], [address] [place] [address] Power Swain DO [address] [facility] 340 [place] [address] documented as of this encounter Visit Diagnoses Diagnosis COPD with acute exacerbation (HCC)- Primary documented in this encounter Additional Health Concerns AssessmentNoted TimePHQ-9 Depression Total Score: 9:00 AM EST documented as of this encounter Care Teams Team MemberRelationshipSpecialtyStart DateEnd Date Vitaliy Thomson MD [address] [place] [address] PCP - ACO Reach03/26/23 Power Swain DO [address] [place] [address] PCP - GeneralFamily Medicine04/25/25 Sima Paul, [place] [address] [place] [address] Registered NurseFamily Lmehntmj85/23/23documented as of this encounter
--- OUTSIDE RECORDS SUMMARY | 2025-08-29 07:37 | XMS_ITS | Encounter Summary ---
Author Organization [facility] Address [address] [place] [address] Care Team Providers Care Brickmason Name Role Phone Vitaliy Thomson MD Unavailable [phone] Sima Paul RN Unavailable [phone] Power Swain DO Primary Care Provider [phone] Encounter Details DateTypeDepartmentCare Team (Latest Contact Info)Qrmtrqwwwcs23/22/2025bstract [facility] [address] 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, [facility] 340 [place] [address] Power Swain DO [address] [facility] 340 [place] [address] documented as of this encounter Visit Diagnoses Not on filedocumented in this encounter Additional Health Concerns AssessmentNoted TimePHQ-9 Depression Total Score: 9:00 AM EST documented as of this encounter Care Teams Team MemberRelationshipSpecialtyStart DateEnd Date Vitaliy Thomson MD [address] [place] [address] PCP - ACO Reach03/26/23 Power Swain DO [address] [facility] [address] [place] [address] PCP - GeneralFamily Medicine04/25/25 Sima Paul, [place] [address] [place] [address] Registered NurseFamily Avlozekm78/23/23documented as of this encounter
--- OUTSIDE RECORDS SUMMARY | 2025-08-29 07:37 | XMS_ITS | Clinical Summary ---
Author Organization [facility] 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
--- OUTSIDE RECORDS SUMMARY | 2025-08-29 07:37 | XMS_ITS | Encounter Summary ---
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 Name Role Phone Vitaliy Thomson MD Unavailable [phone] Sima Paul RN Unavailable [phone] Power Swain DO Primary Care Provider [phone] Encounter Details DateTypeDepartmentCare Team (Latest Contact Info)Nimeogiorjs09/15/2025External Result Encounter [facility] Unsolicited Fabiola Marinelli MD [address] [place] [address] Social History Tobacco UseTypesPacks/DayYears UsedDateSmoking [...] on one occasion?Never06/15/2025PHQ-2AnswerDate Recorded Patient Health Questionnaire-2 [id number] and Gender InformationValueDate RecordedSex Assigned at BirthNot on fileLegal SexFemale 01/14/2023 6:38 PM EDTGender IdentityNot on fileSexual OrientationNot on file 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, [place] [address] [place] [address] Power Swain, DO [address] [place] [address] [place] [address] NameTypePriorityAssociated DiagnosesDate/TimeCBC auto differentialLabSTAT 08/16/2025 8:14 AM EDTdocumented as of this encounter Procedures Procedure NamePriorityDate/TimeAssociated DiagnosisCommentsSCAN AND CBCSTAT 08/16/2025 8:14 AM EDT documented in this encounter Results * (ABNORMAL) SCAN AND CBC (08/16/2025 8:14 AM EDT)ComponentValueRef RangeTest MethodAnalysis TimePerformed AtPathologist SignatureWBC1.8(L)3.8 - 11.6 [CFU]/mL08/16/2025 8:40 AM [facility] CtrUNCORRECTED WHITE BLOOD COUNT1.8(L)3.8 - 11.6 10*3/uL08/16/2025 8:40 AM [facility] CtrRBC3.45(L)3.60 - 5.00 10*6/uL08/16/2025 8:40 AM [facility] CtkOXNPIHHGDJ75.2(L)11.8 - 15.4 g/dL08/16/2025 8:40 AM EDT [facility] XonTKVFVWDCVM85.6(L)34.0 - 46.4 %08/16/2025 8:40 AM [facility] OhmYAP53.480 - 100 fL08/16/2025 8:40 AM EDT [facility] PqeJPW59.424.7 - 34.3 pg08/16/2025 8:40 AM [facility] SiqPSWT29.432.0 - 35.0 g/dL08/16/2025 8:40 AM [facility] CtrRED CELL DISTRIBUTION WIDTH, RDW15.311.9 - 15.3 %08/16/2025 8:40 AM [facility] CtrPLATELET COUNT44(L)150 - 450 10*3/uL08/16/2025 8:40 AM [facility] CtrMEAN PLATELET VOLUME, MPV7.96.3 - 10.7 fL08/16/2025 8:40 AM [facility] CtrNEUTROPHILS, %36.0. %08/16/2025 9:03 AM [facility] Ctr LYMPHOCYTES, %16.6. %08/16/2025 9:03 AM [facility] Ctr MONOCYTE/MACROPHAGE, %13.4. %08/16/2025 9:03 AM [facility] CtrEOSINOPHILS, %33.6. %08/16/2025 9:03 AM [facility] Ctr BASOPHILS, %0.4. %08/16/2025 9:03 AM [facility] CtrNRBC0.00 - 0.5 /100{WBC}08/16/2025 9:03 AM [facility] Ctr NEUTROPHILS0.7(L)1.8 - 7.7 10*3/uL08/16/2025 9:03 AM [facility] CtrLYMPHOCYTES0.3(L)1.00 - 4.8 10*3/uL08/16/2025 9:03 AM [facility] CtrMONOCYTES0.20.0 - 0.8 10*3/uL08/16/2025 9:03 AM [facility] CtrEOSINOPHILS0.6(H)0.0 - 0.45 10*3/uL08/16/2025 9:03 AM [facility] CtrBASOPHILS0.00.0 - 0.2 10*3/uL 08/16/2025 9:03 AM [facility] BrmGYOYGWGPZUCwfuut24/15/2025 9:03 AM [facility] CtrPLATELET ESTIMATEDecreasedNormal 08/16/2025 9:03 AM [facility] CtrPLATELET MORPHOLOGYNormal Yftceb7108/16/2025 9:03 AM [facility] CtrSpecimen (Source) Anatomical Location / LateralityCollection Method / VolumeCollection Time Received TimeBlood (Blood)08/16/2025 8:14 AM EDT1 8:18 AM EDT Narrative Authorizing ProviderResult TypeResult StatusFabiola Marinelli MDLAB BLOOD ORDERABLES Final ResultPerforming OrganizationAddressCity/State/ZIP CodePhone Number [facility] [address] [place] [address], [facility] [address] [facility] [place] [address] documented in this encounter Visit Diagnoses Not on filedocumented in this encounter Additional Health Concerns AssessmentNoted TimePHQ-9 Depression Total Score: 9:00 AM EST documented as of this encounter Care Teams Team MemberRelationshipSpecialtyStart DateEnd Date Vitaliy Thomson MD [address] [place] [address] PCP - ACO Reach03/26/23 Power Swain DO [address] [place] [address] [place] [address] PCP - GeneralFamily Medicine04/25/25 Sima Paul, LES [address] [place] [address] Registered NurseFamily Njajgbqq58/23/23documented as of this encounter
--- OUTSIDE RECORDS SUMMARY | 2025-08-29 07:37 | XMS_ITS | Clinical Summary ---
Author Organization [facility] Address [address] [place] [address] Phone Care Team Providers Care Baking Powder Mixer Name Role Phone Supa Lindquist MD PhD Unavailable [phone] Jessica Grove RN Unavailable Unavailable Lisette Perkins MERCHANDISE SHOPPER-SOCIAL MEDIA DESIGNER Unavailable [phone] Theresa Romano MD PhD Unavailable [phone] Negro Epps MD PhD Unavailable [phone] Power Swain DO Primary Care Provider [phone] Allergies Active AllergyReactionsCriticalityNoted TeinBseytbagVhbkbdcbLdaigXtt78/14/2016 AmoxicillinSwelling,FmliEkk78//2156YsjjvtxtyrXijscqkSqg16/20/2023Moxifloxacin EvuzVwx4708/04/20232310ZpaksnivnbKehjpJft32/24/6179KwkyctcbfiegLtqcrFwq01/30/2013Latex Hives,VyfnZbagee93/03/2023TetracyclinesHives,OscnCjllss74/03/2023 Medications MedicationSigDispense QuantityRefillsLast FilledStart DateEnd DateStatus albuterol [...] TIMES DAILY FOR PAIN FOR 30 DAYS02/11/2024ctive nheqwawvkp-rvwnnejq-fjtzifgiib (Breztri Aerosphere) 160-9-4.8 mcg/actuation HFA aerosol inhaler [...] TO 4 TIMES PER DAY NEEDED FOR GANEWTUWZHY85/15/2025Active Ozempic 0.25 mg or 0.5 mg (2 mg/3 mL) pen injector Inject 0.5 mg under the skin 1 (one) time per week.08/23/2024ctive spironolactone (Aldactone) 50 mg tablet Take 1 tablet (50 mg) by mouth early in the morning..10/06/2024ctive Active Problems ProblemNoted DateDiagnosed DateMultiple myeloma not having achieved remission 10/20/20238497Ihegpgkrtees48/13/2023 Assessment & Plan (08/17/2023 7:42 AM EDT): Due to disease and chemotherapy Transfuse for Hgb < 7 g/dL and platelets < 10 k/uL or bleeding Assessment & Plan (08/14/2023 11:02 AM EDT): :: Due to disease and chemotherapy - Transfuse for Hgb < 7 g/dL and platelets < 10 k/uL or bleeding Oenkvmnxzcwm46/04/0851Nngpstnjookeza65/04/2023Type 2 diabetes zxtfamta98/04/2023 Peripheral yhflaoilre76/04/2023Multiple vtvwweb1808/03/2023 Assessment & Plan (09/28/2023 6:52 PM EST): Referral from Dr. Marinelli at [facility]. MGUS since 2005 Followed at [facility] by Dr. Kumari, and then [...] radiation field this may not be entirely healthcare sales representative. Also clonal evolution in the [...] Plan, so I will enter these outside Sjziehuqwz15/19/6172Cphqwqyekwhu05/19/6048Uahfzeuxzpsacegkeuxjz66/19/2023 Immunodeficiency buhxtpfi89/06/2021 Assessment & Plan (02/14/2024 6:23 PM EDT): Infection prophylaxis VZV: Acyclovir 400 mg PO BID PJP: Trimethoprim-sulfamethoxazole 800-160 mg PO 3x weekly Hypogammaglobulinemia IVIG given 09/22/23, 10/29/23 ([facility]) 12/08/23 01/12/24 02/12/24. Cont monthly. Assessment & Plan (01/28/2024 12:26 PM EDT): Infection prophylaxis VZV: Acyclovir 400 mg PO BID PJP: Trimethoprim-sulfamethoxazole 800-160 mg PO 3x weekly Hypogammaglobulinemia IVIG given 09/22/23, 10/29/23 ([facility]) 12/08/23 and 01/12/24. Cont monthly. Assessment & Plan (01/14/2024 10:27 AM EDT): Infection prophylaxis VZV: Acyclovir 400 mg PO BID PJP: Trimethoprim-sulfamethoxazole 800-160 mg PO 3x weekly Hypogammaglobulinemia IVIG given 09/22/23, 10/29/23 ([facility]) and 12/08/23. Plan next today 01/12/24. Assessment & Plan (01/03/2024 11:33 AM EST): Infection prophylaxis VZV: Acyclovir 400 mg PO BID PJP: Trimethoprim-sulfamethoxazole 800-160 mg PO 3x weekly Hypogammaglobulinemia IVIG given 09/22/23, 10/29/23 ([facility]) and 12/08/23. Plan next dose 01/05/24. 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)07/11/2019 Primary localized osteoarthrosis of ankle and foot06/01/2019Chronic obstructive pulmonary woqntps0804/19/2019Smoldering swxdoyg1504/19/2019Thoracic aortic aneurysm without egujoac9804/15/2019GERD (gastroesophageal reflux disease)04/07/2018Morbid pgdyqvs6211/11/2017Familial nomxckmzlrdktyozjyux45/12/2015Thrombocytopenia 05/31/2014Sleep apnea04/15/2006Monoclonal jmfzydsqgrprcca34/25/2006 Resolved Problems ProblemNoted DateDiagnosed DateResolved DateImmunosuppressed zlkuep4608/14/2023 11/27/2023 Assessment & Plan (11/18/2023 12:39 PM EST): Infection prophylaxis VZV: Continue acyclovir 400 mg PO BID PJP: Continue trimethoprim-sulfamethoxazole 800-160 mg PO 3x weekly Hypogammaglobulinemia IVIG given 09/22/23 and 10/29/23 ([facility]) Assessment & Plan (08/17/2023 7:42 AM EDT): - VZV: Continue acyclovir 400 mg PO BID - PJP: Continue trimethoprim-sulfamethoxazole 800-160 mg PO 3x weekly Assessment & Plan (08/14/2023 10:20 AM EDT): - VZV: Continue acyclovir 400 mg PO BID - PJP: Continue trimethoprim-sulfamethoxazole 800-160 mg PO 3x weekly Multiple myeloma, remission status shkwzazlccj68Obesity, Class III, BMI 40-49.9 (morbid obesity)typical chest pain Vitamin D eleprcrpuo45 Encounters DateTypeDepartmentCare KpliZxronvshtcm12/21/2025 7:57 AM EDTAnesthesia Event [facility] [address] [place] [phone] Justus Rodriguez MD Patterson, George W, [facility] 06/22/2025 5:57 AM EDT - 06/22/2025 11:59 PM EDTHospital Encounter [address] [phone] Liver cell carcinoma (Multi) Discharge Disposition: Home06/22/2025 5:56 AM EDTHospital Encounter [address] [phone] Liver cell carcinoma (Multi) Discharge Disposition: Home06/22/2025Travelfrom Last 3 Months Immunizations ImmunizationAdministration DatesNext DueFlu vaccine (IIV4), preservative free *Check age/dose*09/12/2019,10/14/2018Influenza, Tfgcdhoqrix45/11/2019Influenza, seasonal, gwaonpbbzn53/14/2015Influenza, seasonal, intradermal, preservative free10/05/2017Pneumococcal conjugate vaccine, 13-valent (PREVNAR 13)07/16/2015 Pneumococcal polysaccharide vaccine, 23-valent, age 2 years and older (PNEUMOVAX 23)10/05/2017 Family History Medical HistoryRelationNameCommentsLung cancerBrotherCancerFatherCoronary artery diseaseFatherLeukemiaMaternal GrandmotherCancerMotherCancerPaternal Grandmother Breast cancerSisterRelationNameStatusCommentsBrotherFatherMaternal Grandmother MotherPaternal GrandmotherSister Social History Tobacco UseTypesPacks/DayYears UsedDateSmoking Tobacco: HxtkvlFzrkiibgms152.7 11/02/1976 - 08/02/2003Passive Smoke Exposure: PastSmokeless Tobacco: [...] RecordedSex Assigned at BirthNot on file Legal ZflHzmdpl12/25/2022 4:17 PM ESTGender IdentityNot on fileSexual IwkzuhdgnxaPkbvqmpr24/21/2025 6:11 AM EDT Last Filed Vital Signs Vital SignReadingTime TakenCommentsBlood Yvuxggxt929/6208 12:41 PM EDT Frwnv645706/22/2025 12:41 PM NUIXnpoxelfxoj84.4 ??C (97.5 ??F)06/22/2025 12:41 PM EDTRespiratory Nujx510006/22/2025 12:41 PM EDTOxygen Leeuhrftlx66%06/22/2025 12:41 PM EDTInhaled Oxygen Concentration--Uigfwh87.5 kg (193 lb)06/22/2025 6:39 AM EDT Kmqmwq636.5 cm (5' 2 )06/22/2025 6:39 AM EDTBody Mass Index35.308 6:39 AM EDT Plan of Treatment Health MaintenanceDue DateLast DoneCommentsCT Skkxvfwswxfv1957FIT-DNA (Cologuard)1957FIT1957 4381Zfigxzapmwjfp1957MMR Vaccines (1 of 1 - Standard series)1958COVID-19 Vaccine (#1)1962Hepatitis C Screening 1975Hepatitis A Vaccines (1 of 2 - Risk 2-dose series)1976Zoster Vaccines (1 of 2)1976DTaP/Tdap/Td Vaccines (1 - Tdap)1979Hepatitis B Vaccines (1 of 3 - Risk 3-dose series)2017Diabetes: Retinopathy Screening /Pneumococcal Vaccine (3 of 3 - PCV20 or PCV21)10/05/2022 10/05/2017, 07/16/20159434Ulzmxfhcl31/15/202312/, 10/16/2022, 04/06/2020 Diabetes: Hemoglobin A1C01/03/622995/12/2022Medicare Annual Wellness Visit (AWV) /, 11/22/2021, 11/23/2020, Additional history existsBone Density Scan5012/29/2022, 12/29/2022Influenza Vaccine (#1)2025 10/18/2024, 09/12/2019, 09/12/2019, Additional history existsDiabetes: Urine Protein Fxaqvvaao05, 11/30/2023Lipid Panel Nprtxmbzowu49, 05/01/2015Colorectal Cancer Ezjtmtpvw08/14/2028 Welcome to Medicare LozyyOhpenxwvchpn35/30/2023, 11/22/2021, 11/23/2020, Additional history existsRSV High Risk: (Elderly (60+) or Population) Frpgicmrj82/17/2024HIB VaccinesAged OutNo longer eligible based on patient's [...] 9:[address] GUIDED RF ABLATION IEJPXZntibde38/21/2025 9:06 AM EDT Liver cell carcinoma (Multi) US GUIDED RF ABLATION WOVLSVtjropd30/21/2025 8:53 AM EDT Liver cell carcinoma (Multi) PULSE OXIMETRY, MCBDCMLGRBVfxidcb14/21/2025 8:47 AM EDTPR AN ELECTIVE ENDOTRACHEAL BMJTKIAlnhidc87/21/2025 8:05 AM EDT POCT OVJGWLBRpqvnpj58/21/2025 6:46 AM EDT BASIC METABOLIC GOWXYORVH55/21/2025 6:33 AM EDT PROTIME-YJYLIEA3006/22/2025 6:33 AM EDT NXIYMWD1806/22/2025 6:33 AM EDT HEMOGLOBIN R8XItwrjyz70/03/2023 2:49 AM EDT from Last 3 Months or Most Recently Relevant to Health Maintenance Results * POCT GLUCOSE (06/22/2025 9:58 AM EDT)ComponentValueRef RangeTest Method Analysis TimePerformed AtPathologist SignaturePOCT Imrayhx7729 - 99 mg/dL 06/22/2025 10:00 AM EDTST [facility] LABSpecimen (Source)Anatomical Location / LateralityCollection Method / VolumeCollection TimeReceived Time BloodCapillary blood specimen / Klvmqiz3106/22/2025 9:58 AM EDT06/22/2025 10:00 AM EDT Narrative Authorizing ProviderResult TypeResult StatusInterface UnspecifiedproviderLAB POINT OF CARE TEST DOCKED DEVICE UNSOLICITED RESULTSFinal ResultPerforming OrganizationAddressCity/State/ZIP CodePhone Number [facility] [address] [phone] * CT guided RF ablation liver (06/22/2025 9:06 AM EDT)Anatomical Region LateralityModalityBody Angio, BodyComputed TomographySpecimen (Source) Anatomical Location / LateralityCollection Method / VolumeCollection Time Received Time06/22/2025 3:58 PM EDT06/22/2025 3:58 PM EDT Impressions 06/22/2025 3:[address] and ultrasound-guided microwave ablation of a segment 6 hepatocellular carcinoma as described above ? Signed by: Дмитрий Flores 06/22/2025 3:56 PM Dictation workstation: ?? [id number] Narrative 06/22/2025 3:56 PM EDT Interpreted By: Дмитрий Flores, STUDY: CT GUIDED RF ABLATION LIVER; US GUIDED RF ABLATION LIVER; 06/22/2025 9:06 am; 06/22/2025 8:53 am ?? INDICATION: Signs/Symptoms:HCC microwave ablation; Signs/Symptoms:microwave ablation for HCC. ?? COMPARISON: MR abdomen 04/17/2025 ?? ACCESSION NUMBER(S): [id number]; [id number] ?? ORDERING CLINICIAN: LÁZARO NICHOLAS ?? TECHNIQUE: TIE IN MACHINE OPERATOR: Дмитрий Flores MD ?? CONSENT: [...] on the CT scan table. An initial carburetor specialist CT was performed, demonstrating the 1.9 cm hypoattenuating lesion in segment 6 of the liver consistent with the known hepatocellular carcinoma. The skin was marked, prepped, and draped in a sterile fashion. ?? Next, the liver was evaluated sonographically, demonstrating a 1.9 x 1.8 cm hypoechoic lesion in segment 6 corresponding to the carburetor specialist CT scan and prior imaging. Under direct [...] HCC. COMPARISON: MR abdomen 04/17/2025 ACCESSION NUMBER(S): [id number]; [id number] ORDERING CLINICIAN: LÁZARO NICHOLAS TECHNIQUE: TIE IN MACHINE OPERATOR: Дмитрий Flores MD CONSENT: The [...] on the CT scan table. An initial carburetor specialist CT was performed, demonstrating the 1.9 cm hypoattenuating lesion in segment 6 of the liver consistent with the known hepatocellular carcinoma. The skin was marked, prepped, and draped in a sterile fashion. Next, the liver was evaluated sonographically, demonstrating a 1.9 x 1.8 cm hypoechoic lesion in segment 6 corresponding to the carburetor specialist CT scan and prior imaging. Under direct [...] Дмитрий Flores 06/22/2025 3:56 PM Dictation workstation: [id number] Authorizing ProviderResult TypeResult StatusAlex Ching Nicholas MERCHANDISE SHOPPER-CNPIMG CT PROCEDURESFinal Result * US guided RF ablation liver (06/22/2025 8:53 AM EDT)Anatomical Region LateralityModalityBody Angio, LiverUltrasoundSpecimen (Source)Anatomical Location / LateralityCollection Method / VolumeCollection TimeReceived Time 06/22/2025 3:58 PM EDT06/22/2025 3:58 PM EDT Impressions 06/22/2025 3:[address] and ultrasound-guided microwave ablation of a segment 6 hepatocellular carcinoma as described above ? Signed by: Дмитрий Flores 06/22/2025 3:56 PM Dictation workstation: ?? [id number] Narrative 06/22/2025 3:56 PM EDT Interpreted By: Дмитрий Flores, STUDY: CT GUIDED RF ABLATION LIVER; US GUIDED RF ABLATION LIVER; 06/22/2025 9:06 am; 06/22/2025 8:53 am ?? INDICATION: Signs/Symptoms:HCC microwave ablation; Signs/Symptoms:microwave ablation for HCC. ?? COMPARISON: MR abdomen 04/17/2025 ?? ACCESSION NUMBER(S): [id number]; [id number] ?? ORDERING CLINICIAN: LÁZARO NICHOLAS ?? TECHNIQUE: TIE IN MACHINE OPERATOR: Дмитрий Flores MD ?? CONSENT: [...] on the CT scan table. An initial carburetor specialist CT was performed, demonstrating the 1.9 cm hypoattenuating lesion in segment 6 of the liver consistent with the known hepatocellular carcinoma. The skin was marked, prepped, and draped in a sterile fashion. ?? Next, the liver was evaluated sonographically, demonstrating a 1.9 x 1.8 cm hypoechoic lesion in segment 6 corresponding to the carburetor specialist CT scan and prior imaging. Under direct [...] HCC. COMPARISON: MR abdomen 04/17/2025 ACCESSION NUMBER(S): [id number]; [id number] ORDERING CLINICIAN: LÁZARO NICHOLAS TECHNIQUE: TIE IN MACHINE OPERATOR: Дмитрий Flores MD CONSENT: The [...] on the CT scan table. An initial carburetor specialist CT was performed, demonstrating the 1.9 cm hypoattenuating lesion in segment 6 of the liver consistent with the known hepatocellular carcinoma. The skin was marked, prepped, and draped in a sterile fashion. Next, the liver was evaluated sonographically, demonstrating a 1.9 x 1.8 cm hypoechoic lesion in segment 6 corresponding to the carburetor specialist CT scan and prior imaging. Under direct [...] Дмитрий Flores 06/22/2025 3:56 PM Dictation workstation: [id number] Authorizing ProviderResult TypeResult StatusAlex Ching Nicohlas MERCHANDISE SHOPPER-[facility]G PROCEDURESFinal Result * AR AN ELECTIVE ENDOTRACHEAL AIRWAY (06/22/2025 8:05 AM [...] EDT)ComponentValueRef RangeTest Method Analysis TimePerformed AtPathologist SignaturePOCT Jtvtdyx0638 - 99 mg/dL 06/22/2025 6:49 AM [facility] LABSpecimen (Source)Anatomical Location / LateralityCollection Method / VolumeCollection TimeReceived Time BloodCapillary blood specimen / Howkvyt9206/22/2025 6:46 AM EDT06/22/2025 6:49 AM EDT Narrative Authorizing ProviderResult TypeResult StatusInterface UnspecifiedproviderLAB POINT OF CARE TEST DOCKED DEVICE UNSOLICITED RESULTSFinal ResultPerforming OrganizationAddressCity/State/ZIP CodePhone Number [facility] [address] [phone] * (ABNORMAL) Protime-INR (06/22/2025 6:33 AM EDT)ComponentValueRef RangeTest MethodAnalysis TimePerformed AtPathologist LnikeaaoyRidcyog68.3(H)9.8 - 12.4 seconds LAB COAGULATION METHOD 06/22/2025 7:10 AM [facility] LABINR1.3(H)0.9 - 1.1 LAB COAGULATION METHOD 06/22/2025 7:10 AM [facility] LABSpecimen (Source)Anatomical Location / LateralityCollection Method / VolumeCollection TimeReceived TimeBlood Venous blood specimen / UnknownVenipuncture / Ekflhxx7906/22/2025 6:33 AM EDT 06/22/2025 6:43 AM EDT Narrative Authorizing ProviderResult TypeResult StatusДмитрий KIRKPATRICK BLOOD ORDERABLESFinal ResultPerforming OrganizationAddressCity/State/ZIP CodePhone Number [facility] [address] [place] [address] * (ABNORMAL) CBC (06/22/2025 6:33 AM EDT)ComponentValueRef RangeTest Method Analysis TimePerformed AtPathologist SignatureWBC1.6(L)4.4 - 11.3 x10*3/uL LAB HEMATOLOGY METHOD 06/22/2025 7:37 AM [facility] LABnRBC0.00.0 - 0.0 /100 WBCs LAB HEMATOLOGY METHOD 06/22/2025 7:37 AM [facility] LABRBC3.21(L)4.00 - 5.20 x10*6/uL LAB HEMATOLOGY METHOD 06/22/2025 7:37 AM [facility] ZVDFhhkhoiqcp79.5(L)12.0 - 16.0 g/dL LAB HEMATOLOGY METHOD 06/22/2025 7:37 AM [facility] PHEOmlpsecfxo99.2(L)36.0 - 46.0 % LAB HEMATOLOGY METHOD 06/22/2025 7:37 AM [facility] HTBZPF54490 - 100 fL LAB HEMATOLOGY METHOD 06/22/2025 7:37 AM [facility] TPYMWQ32.726.0 - 34.0 pg LAB HEMATOLOGY METHOD 06/22/2025 7:37 AM [facility] UANKKBJ08.632.0 - 36.0 g/dL LAB HEMATOLOGY METHOD 06/22/2025 7:37 AM [facility] BSSMNT22.911.5 - 14.5 % LAB HEMATOLOGY METHOD 06/22/2025 7:37 AM [facility] CKDMwgdgkzkc99(L)150 - 450 x10*3/uL LAB HEMATOLOGY METHOD 06/22/2025 7:37 AM [facility] LABComment:Platelet count verified by smear reviewSpecimen (Source)Anatomical Location / LateralityCollection Method / VolumeCollection TimeReceived TimeBloodVenous blood specimen / Unknown Venipuncture / Ziqksyx6706/22/2025 6:33 AM EDT06/22/2025 6:43 AM EDT Narrative Authorizing ProviderResult TypeResult StatusWimatt KIRKPATRICK BLOOD ORDERABLESFinal ResultPerforming OrganizationAddressCity/State/ZIP CodePhone Number [facility] [address] [place] [address] * (ABNORMAL) Basic Metabolic Panel (06/22/2025 6:33 AM EDT)ComponentValueRef RangeTest MethodAnalysis TimePerformed AtPathologist JgbbqrcqkKsftqwz7176 - 99 mg/dL LAB CHEMISTRY METHOD 06/22/2025 7:03 AM [facility] JOFZsledj867130 - 145 mmol/L LAB CHEMISTRY METHOD 06/22/2025 7:03 AM [facility] LABPotassium4.03.5 - 5.3 mmol/L LAB CHEMISTRY METHOD 06/22/2025 7:03 AM [facility] NVFSarrpvop09827 - 107 mmol/L LAB CHEMISTRY METHOD 06/22/2025 7:03 AM [facility] KUOJhscoxyyqvg1759 - 32 mmol/L LAB CHEMISTRY METHOD 06/22/2025 7:03 AM [facility] LABAnion Apo4166 - 20 mmol/L LAB CHEMISTRY METHOD 06/22/2025 7:03 AM [facility] LABUrea Pbeutwtk363 - 23 mg/dL LAB CHEMISTRY METHOD 06/22/2025 7:03 AM [facility] LABCreatinine0.930.50 - 1.05 mg/dL LAB CHEMISTRY METHOD 06/22/2025 7:03 AM [facility] OEAyJFZ30>60 mL/min/1.73m*2 LAB CHEMISTRY METHOD 06/22/2025 7:03 AM [facility] LABComment: Calculations of estimated GFR are performed using the 2020 CKD-EPI Study Refit equation without therace variable for the IDMS-Traceable creatinine methods. https://jasn.asnjournals.org/content//ASN.7333438331 Calcium8.2(L)8.6 - 10.3 mg/dL LAB CHEMISTRY METHOD 06/22/2025 7:03 AM EDTST [facility] LABSpecimen (Source)Anatomical Location / LateralityCollection Method / VolumeCollection TimeReceived TimeBlood Venous blood specimen / UnknownVenipuncture / Kzokame3606/22/2025 6:33 AM EDT 06/22/2025 6:43 AM EDT Narrative Authorizing ProviderResult TypeResult StatusДмитрий KIRKPATRICK BLOOD ORDERABLESFinal ResultPerforming OrganizationAddressCity/State/ZIP CodePhone Number [facility] [address] [place] [address] * Hemoglobin A1C (08/04/2023 2:49 AM EDT)ComponentValueRef RangeTest Method Analysis TimePerformed AtPathologist SignatureHemoglobin A1C4.9see below % 08/04/2023 4:08 AM [facility] LABEstimated Average Gxagmna00Wre Established mg/dL08/04/2023 4:08 AM [facility] LABSpecimen (Source)Anatomical Location / LateralityCollection Method / VolumeCollection TimeReceived TimeBloodVenous blood specimen / Ifipgsv8108/04/2023 2:49 AM EDT1 3:18 AM EDT Narrative Authorizing ProviderResult TypeResult StatusKevin NOBLE-KEELEY BLOOD ORDERABLESFinal ResultPerforming OrganizationAddressCity/State/ZIP CodePhone Number [facility] [address] [facility] [address] [place] [address] from Last 3 Months or Most Recently Relevant to Health Maintenance Additional Health Concerns Active ProblemsNoted DateDiagnosed DateAutogenerated Xwiswno8005/01/2025 Insurance Advance Directives For more information, please contact: [phone] (Available ) * Full Code (Latest Code Status on File) Date ActivatedDate InactivatedComments11/18/2023 2:23 PMQuestionAnswerComments Plan of Care:* Code Status Discussion Completed Decision Maker:* Patient * Full Code Date ActivatedDate FjbpaofktpoJijzhcou19/3/2023 12:24 AM08/13/2023 3:26 PM QuestionAnswerCommentsPlan of Care:* Code Status Discussion Completed Decision Maker:* Patient * Full Code Date ActivatedDate DebimmlhnueLhsusvvu93/3/2023 12:24 AM08/04/2023 12:24 AM QuestionAnswerCommentsPlan of Care:* Code Status Discussion Completed Decision Maker:* Patient Care Teams Team MemberRelationshipSpecialtyStart DateEnd Date Power Swain DO [address] [facility] [place] [address] [facility] - [facility]05/09/25 Supa Lindquist MD PhD [address] [phone] Consulting PhysicianHematology and Nezgurom26/2/23 Jessica Grove, side stapler CoordinatorCase Bghqvfzedn48/3/23 Lisette Perkins, MERCHANDISE SHOPPER-SOCIAL MEDIA DESIGNER Nurse PractitionerHematology and Egfvjkrp39/13/23 Theresa Romano MD PhD [address] [phone] Consulting PhysicianHematology and Oncology11/18/23 Negro Epps MD PhD [address] [phone] Consulting PhysicianHematology and Oncology01/19/24
--- OUTSIDE RECORDS SUMMARY | 2025-08-29 07:37 | XMS_ITS | Encounter Summary ---
Author Organization [facility] Address [address] [place] [address] Care Team Providers Care Nuclear Scientist Name Role Phone Vitaliy Thomson MD Unavailable [phone] Sima Paul RN Unavailable [phone] Power Swain DO Primary Care Provider [phone] Encounter Details DateTypeDepartmentCare Team (Latest Contact Info)Hxtmoiwahcn69/15/2025External Result Encounter [facility] External Department Unsolicited Fabiola Marinelli MD [address] [place] [address] Social History Tobacco UseTypesPacks/DayYears UsedDateSmoking [...] on one occasion?Never06/15/2025PHQ-2AnswerDate Recorded Patient Health Questionnaire-2 Uhmeh956CommentsNoSex and Gender InformationValueDate RecordedSex Assigned at BirthNot on fileLegal SexFemale 01/14/2023 6:38 PM EDTGender IdentityNot on fileSexual OrientationNot on file OccupationIndustryJob Start DateJob End DateRetiredNot on fileNot on fileNot on filedocumented as of this encounter Plan of Treatment DateTypeDepartmentCare Team (Latest Contact Info)Lrpvcsybmup29/10/2025 10:00 AM ESTOffice Visit DAOMeg Brandon [facility] [address], [address] [place] [address] Power Swain, [address] [place] [address] [place] [address] documented as of this encounter Procedures Procedure NamePriorityDate/TimeAssociated DiagnosisCommentsMAGNESIUMSTAT 08/16/2025 10:32 AM EDT documented in this encounter Results * (ABNORMAL) Magnesium (08/16/2025 10:32 AM EDT)ComponentValueRef RangeTest MethodAnalysis TimePerformed AtPathologist SignatureMAGNESIUM1.7(L)1.9 - 2.7 mg/dL08/16/2025 11:04 AM EDTFHolzer Medical Center – Jackson CtrSpecimen (Source) Anatomical Location / LateralityCollection Method / VolumeCollection Time Received TimeOtherTopography unknown / Gvaqpsz0108/16/2025 10:32 AM EDT 08/16/2025 10:32 AM EDT Narrative Authorizing ProviderResult TypeResult StatusFabiola Marinelli MDLAB BLOOD ORDERABLES Final ResultPerforming OrganizationAddressCity/State/ZIP CodePhone Number [facility] [address] [place] [address], [facility] [address] [facility] [place] [address] documented in this encounter Visit Diagnoses Not on filedocumented in this encounter Additional Health Concerns AssessmentNoted TimePHQ-9 Depression Total Score: 9:00 AM EST documented as of this encounter Care Teams Team MemberRelationshipSpecialtyStart DateEnd Date Vitaliy Thomson MD [address] [place] [address] PCP - ACO [facility]03/26/23 Power Swain DO [address] [address] PCP - GeneralFamily Medicine04/25/25 Sima Paul RN [address] [place] [address] Registered NurseFamily Ukmdcadl44/23/23documented as of this encounter
--- OUTSIDE RECORDS SUMMARY | 2025-08-29 07:37 | XMS_ITS | Encounter Summary ---
Author Organization [facility] Address [address] [place] [address] Care Team Providers Care Measurement Advisor Name Role Phone Vitaliy Thomson MD Unavailable [phone] Sima Paul RN Unavailable [phone] Power Swain DO Primary Care Provider [phone] Encounter Details DateTypeDepartmentCare Team (Latest Contact Info)Qfiaiirobwn67/15/2025External Result Encounter [facility] External Department Unsolicited Fabiola Marinelli MD [address] [place] [address] Social History Tobacco UseTypesPacks/DayYears UsedDateSmoking [...] on one occasion?Never06/15/2025PHQ-2AnswerDate Recorded Patient Health Questionnaire-2 Kicio772CommentsNoSex and Gender InformationValueDate RecordedSex Assigned at BirthNot on fileLegal SexFemale 01/14/2023 6:38 PM EDTGender IdentityNot on fileSexual OrientationNot on file OccupationIndustryJob Start DateJob End DateRetiredNot on fileNot on fileNot on filedocumented as of this encounter Plan of Treatment DateTypeDepartmentCare Team (Latest Contact Info)Wasbkhpxlfx70/10/2025 10:00 AM ESTOffice Visit DAOMeg [facility] [address], [address] [place] [address] Power Swain, DO [address] [place] [address] documented as of this encounter Procedures Procedure NamePriorityDate/TimeAssociated DiagnosisCommentsIRON AND TOTAL IRON BINDING ZWJFJGXHTSWG59/15/2025 8:14 AM EDT PYTZNJTAVKVS48/15/2025 8:14 AM EDT COMPREHENSIVE METABOLIC PZVGGMKZY90/15/2025 8:14 AM EDT documented in this encounter Results * Ferritin (08/16/2025 8:14 AM EDT)ComponentValueRef RangeTest MethodAnalysis TimePerformed AtPathologist YeljetlamABIBBIXJ516.111.0 - 306.8 ng/mL08/16/2025 9:07 AM EDCleveland Clinic Foundation CtrSpecimen (Source)Anatomical Location / LateralityCollection Method / VolumeCollection TimeReceived TimeOther Topography unknown / Bfksheh5308/16/2025 8:14 AM EDT1 8:18 AM EDT Narrative Authorizing ProviderResult TypeResult StatusFabiola Marinelli MDLAB BLOOD ORDERABLES Final ResultPerforming OrganizationAddressCity/State/ZIP CodePhone Number [facility] [address] [place] [address], [facility] [address] [place] [address] * Iron and TIBC (08/16/2025 8:14 AM EDT)ComponentValueRef RangeTest Method Analysis TimePerformed AtPathologist VrlaezuphNCZY6061 - 212 ug/dL08/16/2025 8:48 AM [facility] CtrTOTAL IRON BINDING HHGMMAHG062275 - 450 ug/dL08/16/2025 8:48 AM [facility] Ctr% IRON SATURATION 23.920 - 50 %08/16/2025 8:48 AM [facility] CtrTRANSFERRIN [address] - 362 mg/dL08/16/2025 8:48 AM [facility] CtrSpecimen (Source)Anatomical Location / LateralityCollection Method / VolumeCollection TimeReceived TimeOtherTopography unknown / Pmhrlbz6308/16/2025 8:14 AM EDT 08/16/2025 8:18 AM EDT Narrative Authorizing ProviderResult TypeResult StatusFabiola Marinelli MDLAB BLOOD ORDERABLES Final ResultPerforming OrganizationAddressCity/State/ZIP CodePhone Number [facility] [address] [place] [address], [facility] [address] [place] [address] * (ABNORMAL) Comprehensive metabolic panel (08/16/2025 8:14 AM EDT)Component ValueRef RangeTest MethodAnalysis TimePerformed AtPathologist SignatureGlucose 109(H)70 - 100 mg/dL08/16/2025 8:48 AM [facility] Comment: Random Glucose Reference Range is dependent on time and content of last meal. Glucose of more than 200 mg/dL in a nonstressed, ambulatory subject supports the diagnosis of Diabetes Mellitus. ADA recommended reference range WMB180 - 25 mg/dL08/16/2025 8:48 AM [facility] CtrCREATININE 0.990.60 - 1.20 mg/dL08/16/2025 8:48 AM [facility] Ctr ESTIMATED GFR>60. 8:48 AM [facility] OtqGbgjkl277 136 - 145 mmol/L1 8:48 AM [facility] CtrPotassium, Bld4.13.5 - 5.1 mmol/L1 8:48 AM [facility] Ctr Ijwtviww08834 - 107 mmol/L1 8:48 AM [facility] Ctr Carbon Swpsqns07.521.0 - 31.0 mmol/L1 8:48 AM [facility] CtrAnion Gap8.66.0 - 15.010 8:48 AM [facility] CtrCalcium9.08.6 - 10.3 mg/dL08/16/2025 8:48 AM [facility] CtrTOTAL PROTEIN5.5(L)6.4 - 8.9 g/dL08/16/2025 8:48 AM [facility] CtrALBUMIN LEVEL3.63.5 - 5.7 g/dL08/16/2025 8:48 AM [facility] CtrGLOBULIN1.9g/dL08/16/2025 8:48 AM [facility] CtrALBUMIN/GLOBULIN RATIO1.91 8:48 AM [facility] CtrBILIRUBIN,TOTAL0.90.3 - 1.0 mg/dL08/16/2025 8:48 AM [facility] CtrASPARTATE AMINO ZVBHCSOLOWY3555 - 39 U/L1 8:48 AM [facility] CtrALANINE ZZXWJOOSOGKTAVUP399 - 52 U/L 08/16/2025 8:48 AM [facility] CtrALKALINE ZYQGMTEBKQU1668 - 104 U/L1 8:48 AM [facility] CtrCREATININE CLR CALC MNOXKNPL51.181 8:48 AM [facility] CtrSpecimen (Source)Anatomical Location / LateralityCollection Method / VolumeCollection TimeReceived TimeOtherTopography unknown / Heccexo9208/16/2025 8:14 AM EDT 08/16/2025 8:18 AM EDT Narrative Authorizing ProviderResult TypeResult StatusFabiola Marinelli MDLAB BLOOD ORDERABLES Final ResultPerforming OrganizationAddressCity/State/ZIP CodePhone Number [facility] [address] [place] [address], [facility] [address] [place] [address] documented in this encounter Visit Diagnoses Not on filedocumented in this encounter Additional Health Concerns AssessmentNoted TimePHQ-9 Depression Total Score: 9:00 AM EST documented as of this encounter Care Teams Team MemberRelationshipSpecialtyStart DateEnd Date Vitaliy Thomson MD [address] [place] [address] PCP - ACO [facility]03/26/23 Power Swain DO [address] [place], [place] [address] [address] PCP - GeneralFamily Medicine04/25/25 Sima Paul, LES [address] [place] [address] Registered NurseFamily Yvrotszk46/23/23documented as of this encounter
--- OUTSIDE RECORDS SUMMARY | 2025-08-29 07:37 | XMS_ITS | Encounter Summary ---
Author Organization [facility] Address [address] [place] [address] Care Team Providers Care Trigonometry Teacher Name Role Phone Vitaliy Thomson MD Unavailable Sima Paul RN Unavailable [phone] Power Swain DO Primary Care Provider [phone] Encounter Details DateTypeDepartmentCare Team (Latest Contact Info)Cscobporppi87/27/2025bstract [facility] [address] [facility] [address], [address] [place] [address] Power Swain DO [address] [facility] [address] [place] [address] Social History Tobacco UseTypesPacks/DayYears UsedDateSmoking Tobacco: FormerCigarettes [...] on one occasion?Never06/15/2025PHQ-2AnswerDate Recorded Patient Health Questionnaire-2 Yxrmo432CommentsNoSex and Gender InformationValueDate RecordedSex Assigned at BirthNot on fileLegal SexFemale 01/14/2023 6:38 PM EDTGender IdentityNot on fileSexual OrientationNot on file OccupationIndustryJob Start DateJob End DateRetiredNot on fileNot on fileNot on filedocumented as of this encounter Plan of Treatment DateTypeDepartmentCare Team (Latest Contact Info)Emlaqqzwyzo22/10/2025 10:00 AM ESTOffice Visit [facility] [place] [facility] [address], [facility] [address] [place] [address] Power Swain DO [address] [facility] [address] [place] [address] documented as of this encounter Visit Diagnoses Not on filedocumented in this encounter Additional Health Concerns AssessmentNoted TimePHQ-9 Depression Total Score: 9:00 AM EST documented as of this encounter Care Teams Team MemberRelationshipSpecialtyStart DateEnd Date Vitaliy Thomson MD [address] [place] [address] PCP - ACO [place]03/26/23 Power Swain DO [address] [facility] [address] [place] [address] PCP - GeneralFamily Medicine04/25/25 Sima Paul, [place]ES [address] [place] [address] Registered NurseFamily Rfclwcvx94/23/23documented as of this encounter
--- OUTSIDE RECORDS SUMMARY | 2025-08-29 07:37 | XMS_ITS | Encounter Summary ---
Author Organization [facility] Address [address] [place] [address] Care Team Providers Care Service Correspondent Name Role Phone Vitaliy Thomson MD Unavailable [phone] Sima Paul RN Unavailable [phone] Power Swain DO Primary Care Provider [phone] Encounter Details DateTypeDepartmentCare Team (Latest Contact Info)Rpkfkwhfaye49/22/2025Results Follow-Up [facility] [address] [place] [address] Power Swain DO [address] [facility] [address] [place] [address] POCT rapid strep A manually resulted, PNEUMONIA [...] on one occasion?Never06/15/2025PHQ-2AnswerDate Recorded Patient Health Questionnaire-2 Manlj833CommentsNoSex and Gender InformationValueDate RecordedSex Assigned at BirthNot on fileLegal SexFemale 01/14/2023 6:38 PM EDTGender IdentityNot on fileSexual OrientationNot on file OccupationIndustryJob Start DateJob End DateRetiredNot on fileNot on fileNot on filedocumented as of this encounter Plan of Treatment DateTypeDepartmentCare Team (Latest Contact Info)Wqcyhajuweh06/10/2025 10:00 AM ESTOffice Visit N[facility]S [place] [facility] [address], [address] [place] [address] Power Swain DO [address] [place] [address] documented as of this encounter Visit Diagnoses Diagnosis Pseudomonas infection- Primary documented in this encounter Additional Health Concerns AssessmentNoted TimePHQ-9 Depression Total Score: 9:00 AM EST documented as of this encounter Care Teams Team MemberRelationshipSpecialtyStart DateEnd Date Vitaliy Thomson MD [address] [place] [address] PCP - ACO [place]03/26/23 Power Swain DO [address] [facility] [place] [address] PCP - GeneralFamily Medicine04/25/25 Sima Paul, [place] [address] [place] [address] Registered NurseFamily Lrayyvfb90/23/23documented as of this encounter
--- OUTSIDE RECORDS SUMMARY | 2025-08-29 07:37 | XMS_ITS | Encounter Summary ---
Author Organization [facility] Address [address] [place] [address] Care Team Providers Care Psychiatric Clinical Nurse Specialist Name Role Phone Vitaliy Thomson MD Unavailable [phone] Sima Paul RN Unavailable [phone] Power Swain DO Primary Care Provider [phone] Encounter Details DateTypeDepartmentCare Team (Latest Contact Info)Lemdqnxchng85/27/2025bstract [facility] [place] [facility] [address] [facility] [place] [address] Power Swain DO [address] [facility] [address] [place] [address] Social History Tobacco UseTypesPacks/DayYears UsedDateSmoking Tobacco: FormerCigarettes [...] on one occasion?Never06/15/2025PHQ-2AnswerDate Recorded Patient Health Questionnaire-2 Tadxz587CommentsNoSex and Gender InformationValueDate RecordedSex Assigned at BirthNot on fileLegal SexFemale 01/14/2023 6:38 PM EDTGender IdentityNot on fileSexual OrientationNot on file OccupationIndustryJob Start DateJob End DateRetiredNot on fileNot on fileNot on filedocumented as of this encounter Plan of Treatment DateTypeDepartmentCare Team (Latest Contact Info)Gavlrifqnyz41/10/2025 10:00 AM ESTOffice Visit [facility] [place] [facility] [address], [facility] 340 [place] [address] Power Swain DO [address] [facility] [address] [place] [address] documented as of this encounter Visit Diagnoses Not on filedocumented in this encounter Additional Health Concerns AssessmentNoted TimePHQ-9 Depression Total Score: 9:00 AM EST documented as of this encounter Care Teams Team MemberRelationshipSpecialtyStart DateEnd Date Vitaliy Thomson MD [address] [place] [address] PCP - ACO [place]03/26/23 Power Swain DO [address] [facility] [address] [place] [address] PCP - GeneralFamily Medicine04/25/25 Sima Paul, [place]ES [address] [place] [address] Registered NurseFamily Egjnuhzu43/23/23documented as of this encounter
--- OUTSIDE RECORDS SUMMARY | 2025-08-29 07:37 | XMS_ITS | Encounter Summary ---
Author Organization [facility] Address [address] [place] [address] Care Team Providers Care Services Rep Name Role Phone Yinka Thomson MD Unavailable [phone] Yinka Thomson MD Primary Care Provider [phone] Fabiola Palumbo NP Unavailable Letty Newsome BRUSH LOADER AND HANDLE ATTACHER Unavailable [phone] Sima Paul RN Unavailable [phone] Power Swain DO Primary Care Provider [phone] Power Swain DO Primary Care Provider [phone] Encounter Details DateTypeDepartmentCare Team (Latest Contact Info)Myfpcdxhkba59/17/2024Clinisync Result Encounter [facility] External Department Unsolicited Yinka Thomson MD [address] [place] [address] Social History Tobacco UseTypesPacks/DayYears UsedDateSmoking [...] on one occasion?Never06/15/2025PHQ-2AnswerDate Recorded Patient Health Questionnaire-2 Xzrrb039CommentsNoSex and Gender InformationValueDate RecordedSex Assigned at BirthNot on fileLegal SexFemale 01/14/2023 6:38 PM EDTGender IdentityNot on fileSexual OrientationNot on file OccupationIndustryJob Start DateJob End DateRetiredNot on fileNot on fileNot on filedocumented as of this encounter Functional Status * AUDIT-C ScoreAnswerDate of FitzknwpzsVkjdwy613/14/2025 8:51 AM Negar Herrera LPN * QuestionAnswerDate of AssessmentAuthorQ1: How often do you have a drink containing alcohol?Never06/15/2025 8:51 AM Negar Herrera LPNQ2: How many drinks containing alcohol do you have on a typical day when you are drinking? Patient does not drink06/15/2025 8:51 AM Negar Herrera LPNQ3: How often do you have six or more drinks on one occasion?Never06/15/2025 8:51 AM Negar Herrera LPN * Over the past 2 weeks, how often have you been bothered by any of the following problems?QuestionAnswerDate of AssessmentAuthorLittle interest or pleasure in doing thingsNot at all06/15/2025 8:51 AM Negar Herrera LPN Feeling down, depressed, or hopelessNot at all06/15/2025 8:51 AM Negar Herrera LPNPatient Health Questionnaire-2 Lnmyi448 8:51 AM Negar Herrera LPN documented as of this encounter Plan of Treatment DateTypeDepartmentCare Team (Latest Contact Info)Nysbovnyyrz32/10/2025 10:00 AM ESTOffice Visit NOMMeg [facility] [address] [place] [address] Power Swain, [address] [address] [place] [address] documented as of this encounter Procedures Procedure NamePriorityDate/TimeAssociated DiagnosisCommentsMM TOMOSYNTHESIS SCREENING BI08/18/2024 3:19 PM EDT documented in this encounter Results * MM TOMOSYNTHESIS SCREENING BI (08/18/2024 3:19 PM EDT)Anatomical Region LateralityModalityOtherSpecimen (Source)Anatomical Location / Laterality Collection Method / VolumeCollection TimeReceived Time08/18/2024 3:19 PM EDT Narrative 08/18/2024 3:20 PM EDT [facility] ?[address] ? [place] [address] ? Mammography Report ? Signed ? Patient: MOJGAN PÉREZ S ?MR#: [id number] ?? : 1955 ?Acct:[id number] ?? Age/Sex: 68 / F ?ADM Date: 08/18/24 ?? Loc: MAMMO ? Attending Dr: YINKA THOMSON ? Ordering Physician: YINKA THOMSON ? Results: ? Date of Service: 08/18/ ?Follow Up: ? Procedure(s): MM tomosynthesis screening BI ?? Accession Number(s): [id number] ? cc: YINKA HTOMSON ? Patient Name: ? MOJGAN PÉREZ ? MR#: [id number] ? : 1955 ? Exam Date: 08/18/2024 [...] at age 66. ? LOCATION: ? [facility] ? BREAST COMPOSITION: ? There are scattered [...] 1520 ? DD/ 1519 ? TD/TT: ? Pathology Secretary: Procedure Note Radiology, Radiologist, MD - 08/18/2024 [place] [address] Mammography Report Signed Patient: MOJGAN PÉREZ [facility]#: [id number] : 7Acct:[id number] Age/Sex: 68 / FADM Date: 08/18/24 Loc: MAMMO Attending Dr: YINKA THOMSON Ordering Physician: YINKA THOMSONResults: Date of Service: 08/18/24Follow Up: Procedure(s): MM tomosynthesis screening BI Accession Number(s): [id number] cc: YINKA THOMSON Patient Name: MOJGAN PÉREZ MR#: [id number] : 1955 Exam Date: 08/18/2024 Ordering Doctor: [...] lung cancer at age 66. LOCATION: [facility] BREAST COMPOSITION: There are scattered [...] M.D. Signed By:08/18/24 1520 DD/ 1519 TD/TT: Pathology Secretary: Authorizing ProviderResult TypeResult StatusBrshefali Thomson MDCLINISYNC IMAGING Final Result documented in this encounter Visit Diagnoses Not on filedocumented in this encounter Additional Health Concerns AssessmentNoted TimePHQ-9 Depression Total Score: 9:00 AM EST documented as of this encounter Care Teams Team MemberRelationshipSpecialtyStart DateEnd Date Yinka Thomson MD [address] [place] [address] PCP - ACO [facility]03/26/23 Yinka Thomson MD [address] [place] [address] [facility] Power Swain DO [address] [place] [address] [facility] Power Swain DO [address] [facility] [place] [address] [facility] - [facility]/25 Fabiola Palumbo NP [address] [place] [address] Nurse PractitionerFamily Medicine Letty Newsome, BRUSH LOADER AND HANDLE ATTACHER [address] [place] [address] Nurse PractitionerPulmonary Disease Sima Paul, LES [address] [place] [address] Registered NurseFamily Gvbplbmc49/23/23documented as of this encounter
--- OUTSIDE RECORDS SUMMARY | 2025-08-29 07:37 | XMS_ITS ---
Author Organization [facility] Address [address] [facility] [place] [address] Care Team Providers Care Assistance Representative Name Role Phone Vitaliy Thomson MD Unavailable [phone] Sima Paul RN Unavailable [phone] Power Swain DO Primary Care Provider [phone] Emergency Department Transitional Care Management (TCM) Status:Closed (Closed) Start date:08/27/2025 Enrollment reason:Identified using hospital discharge data End date:08/28/2025 Close reason:Readmitted to inpatient facility Overview Discharged from [facility] ER on 08/27. Please contact within 2 days of discharge for ERTOC and schedule a follow-up appointment if needed. Continued Care and Services Coordination
--- OUTSIDE RECORDS SUMMARY | 2025-08-29 07:37 | XMS_ITS | Clinical Summary ---
Author Organization [facility] Address [address] [place] [address] Care Team Providers Care Transit Planning Manager Name Role Phone Yinka Thomson MD Unavailable [phone] Sima Paul RN Unavailable [phone] Power Swain DO Primary Care Provider [phone] Allergies Active AllergyReactionsCriticalityNoted DateCommentsAmoxicillinSwelling,RashLow 03/17/20061453IaocbfjemrGradmsh79/20/2023 Other Reaction(s): Unknown DiclofenacUnknown,Hives05/25/2019Diclofenac MhcdfiLvvpq52/24/2019Doxycycline Unknown,Vkmmmpxw09/16/3160NpiaadcpnpbjUhadm68/30/2013Erythromycin BaseHives 12/17/2023LatexUnknown,Hives,SelqHzcron70/12/2019MoxifloxacinHives,Rash,Unknown Low05/25/20199295NrcecZftqmarmn12/20/2022 Other Reaction(s): dizziness IpdmpffimeHwlio42/09/2024 Other Reaction(s): Hives, Unknown Reaction Other Reaction(s): Unknown Reaction TetracyclineUnknown,Hives,SxwhMctksj53/12/2019Wound Dressing AdhesiveUnknown 05/15/2016 Medications MedicationSigDispense QuantityRefillsLast FilledStart [...] TABLET BY MOUTH EVERY THURSDAY, THURSDAY AND ABMFQS0401/11/2024ctive Qhxawrr-Mebhjzsegdi-Cencrttepo (Breztri Aerosphere) 160-9-4.8 MCG/ACT aerosol Inhale 2 puffs in the morning and 2 puffs before bedtime.Active Teclistamab-cqyv 30 MG/3ML solution 03/21/2024ctive glucose blood (FREESTYLE LITE) test strip Indications:Type 2 diabetes mellitus with other specified complication, unspecified whether keno terminal operator insulin use (HCC)Use as instructed 100 each [...] TO 4 TIMES PER DAY NEEDED FOR ECIPWDRRDWM82/15/2025Active magnesium oxide (Mag-Ox) 400 (240 Mg) MG [...] 1 CAPSULE ONCE A DAY FOR 2 [id number] morphine CR (MS Contin) 15 MG 12 [...] mg) by mouth at bedtime 90 tablet 6Active omeprazole (PriLOSEC) [address] capsule Indications:Gastroesophageal reflux disease, unspecified whether esophagitis presentTake 1 capsule (40 mg) by mouth in the morning. Take before meals. Do not crush or chew. 90 capsule ctive prochlorperazine (Compazine) 10 MG tablet Take 10 mg by mouth every 8 (eight) hours if jbebho525Active predniSONE (Deltasone) 20 MG tablet Indications:COPD with [...] crush, chew, or split. 28 tablet 5Active ipratropium-albuterol (Duo-Neb) 0.5-2.5 mg/3 mL nebulizer solution Indications:COPD with acute exacerbation (HCC)Take 3 mL by nebulization every 6 (six) hours 1080 mL ctive DULoxetine (Cymbalta) [address] capsule Indications:FibromyalgiaTake 1 capsule (60 mg) by mouth Daily Do not crush or chew. 90 capsule /Discontinued(Therapy completed) albuterol (2.5 MG/3ML) 0.083% nebulizer solution [...] capsule Discontinued(Therapy completed) Active Problems ProblemNoted DateDiagnosed PvfgFgzknq46/05/2025Gross pzcfjnsun70/05/2025History of kidney kolick9107/07/2025bnormal liver iwndxxvyhk34/11/2025Hepatocellular ibdmutjxq07/11/2025Liver gakmeg4401/10/2025leeding wkzcxxdfiso25/24/2024 Rvlulanlxrk20/24/5348Dtluuhugnnuzwvjl20/24/2024bnormal CXR (chest x-ray) 08/10/2024Spontaneous bacterial qixomuxuhyt94/09/2024aroxysmal atrial uiedtvueoevc78/19/2024History of tobacco abuse04/25/2024hronic obstructive pulmonary ucvsufd4905/20/2023 Assessment & Plan (03/01/2025 2:47 PM EDT): Lungs around baseline on PE today, continue current tx regimen, refill albuterol nebulizer solution Orders: albuterol (2.5 MG/3ML) 0.083% nebulizer solution; Take 3 mL (2.5 mg) by nebulization every 6 (six) hours if needed for wheezing Jokhfzjrfd22/19/1260AO0 (diabetes mellitus, type 2)05/20/2023Essential uecablamdoim27/19/9707Mryzntvjmili44/19/2023Hyperlipidemia, group D005/20/2023 Uivqoguvfxpxmmkcphojm27/19/2023Immunodeficiency zfjfzave92/06/2021Multiple myeloma not having achieved yohsdpwxl83/08/2020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)07/11/2019Primary localized osteoarthrosis of ankle and foot06/01/2019Thoracic aortic aneurysm without fsemzra8804/15/2019 Hemorrhoids, ebusmvudypb08/17/2019GERD (gastroesophageal reflux disease) 04/07/2018 Assessment & Plan [...] mouth Daily Do not crush or chew. Jyzdygirbigm14/11/2018Morbid twhgwmo8911/11/2017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Vitamin D viatqqffsm00/14/2006 Resolved Problems ProblemNoted DateDiagnosed DateResolved TzdhNczujcbaeocixe88/11/202507/14/2025 Acute metabolic bcsjqokelotvne41/19/202407/1988Rxygddmhxu82 Rhinovirus prvkbekvf93Septic shockute alteration in mental pebfsf99History of COVID-19004/25/2024 05/15/2025Maxillary sinusitis, znwsjxh09Renal calculus 12/05//04/2023Malignant immunoproliferative hrxesro70MI 30.0-30.9,adultThoracic ascending aortic intvsorf55/18/2019 07/08/2023Smoldering caepmqt90H/O abdominal hysterectomy 3Disorder of nervous system due to type 2 diabetes mellitus 3Allergic mmvcticm013Polyneuropathy therosclerosis of aortaneurysm of infrarenal abdominal aortahronic pain lgsfujbc59/30/2017 3Primary opwfotvm90Leukopenia Cirrhosis of liver5281Umdjbmzwiohtworb36/30/201409/06/2023Sleep apnea Encounters DateTypeDepartmentCare AcjrOoqqbuptydm42/27/2025bstract [facility] [address] [place] [address] Power Swain, 08/28/2025bstract [facility] [address], [address] [place] [address] Power Swain DO 08/28/2025Telephone [facility] [address] [place] [address] Power Swain DO 08/28/2025Patient Outreach [facility] [address] [place] [address] Fadi, Fanny, MATERIALS SUPERVISOR 08/28/2025bstract [facility] [address], [address] [place] [address] Power Swain DO 08/28/2025Telephone [facility] [address] [place] [address] Power Swain DO 08/24/2025Telephone [facility] [address] [place] [address] Power Swain DO 08/23/2025Results Follow-Up [facility] [address], [address] [place] [address] Power Swain DO POCT rapid strep A manually resulted, PNEUMONIA (HTRX)08/23/2025bstract [facility] [address], [address] [place] [address] Power Swain DO 08/22/2025 2:20 PM EDTFollow-Up [facility] [address] [place] [address] Power Swain DO COPD with acute exacerbation (HCC) (Primary Dx); Pharyngitis, unspecified jhxexaga85/20/2025Telephone [facility] [address] [place] [address] Polina Ferrari MA 08/18/2025bstract [facility] [address] [place] [address] Power Swain DO 08/16/2025External Result Encounter [facility] External Department Unsolicited Faboila Marinelli MD 08/16/2025External Result Encounter [facility] External Department Unsolicited Fabiola Marinelli MD 08/16/2025External Result Encounter [facility] External Department Unsolicited Fabiola Marinelli MD 08/14/2025bstract [facility] [address] [place] [address] Power Swain DO 08/11/2025bstract [facility] [address] [place] [address] Power Swain DO 08/11/2025Refill [facility] [address] [place] [address] Polina Ferrari MA Hyperlipidemia, group D; Gastroesophageal reflux disease, unspecified whether esophagitis present 08/09/2025bstract [facility] [address] [place] [address] Power Swain DO 08/09/2025External Result Encounter [facility] External Department Unsolicited Fabiola Marinelli MD 08/09/2025External Result Encounter [facility] External Department Unsolicited Fabiola Marinelli MD 08/04/2025Patient Outreach [facility] [address] [place] [address] Sima Pual RN 08/04/2025Refill [facility] [address] [place] [address] Power Swain DO Chronic obstructive pulmonary disease, unspecified COPD type (HCC)08/04/2025 Abstract [facility] [address] [place] [address] Power Swain DO 08/02/2025External Result Encounter [facility] External Department Unsolicited Fabiola Marinelli MD 08/02/2025External Result Encounter [facility] External Department Unsolicited Fabiola Marinelli MD 08/02/2025External Result Encounter [facility] External Department Unsolicited Fabiola Marinelli MD 08/02/2025External Result Encounter [facility] External Department Unsolicited Fabiola Marinelli MD 08/02/2025External Result Encounter [facility] External Department Unsolicited Fabiola Marinelli MD 08/02/2025bstract [facility] [address] [place] [address] Power Swain, DO 07/21/2025bstract [facility] [address] [place] [address] Power Swain, 07/21/2025Patient Outreach [facility] [address] [place] [address] Sima Paul, LES 07/20/2025bstract [facility] [address] [place] [address] Power Swain, DO 07/19/2025External Result Encounter [facility] External Department Unsolicited Fabiola Marinelli MD 07/19/2025External Result Encounter [facility] External Department Unsolicited Fabiola Marinelli MD 07/18/2025Refill [facility] [address] [place] [address] Power Swain, DO Seasonal allergic rhinitis due to oxzztr0307/12/2025External Result Encounter [facility] External Department Unsolicited Fabiola Marinelli MD 07/12/2025External Result Encounter [facility] External Department Unsolicited Fabiola Marinelli MD 07/12/2025External Result Encounter [facility] External Department Unsolicited Fabiola Marinelli MD 07/07/2025Patient Outreach [facility] [address] [place] [address] Sima Paul, LES 07/07/2025Telephone [facility] [address] [place] [address] Polina Ferrari MA Med Oqzdgs6207/05/2025External Result Encounter [facility] External Department Unsolicited Fabiola Marinelli MD 07/05/2025External Result Encounter [facility] External Department Unsolicited Fabiola Marinelli MD 06/20/2025External Result Encounter [facility] External Department Unsolicited Fabiola Marinelli MD 06/20/2025External Result Encounter [facility] External Department Unsolicited Fabiola Marinelli MD 06/20/2025External Result Encounter [facility] External Department Unsolicited Fabiola Marinelli MD 06/19/2025bstract [facility] [address] [place] [address] Power Swain, DO 06/16/2025bstract [facility] [address] [place] [address] Power Swian, DO 06/15/2025 8:40 AM EDTConsult [facility] [address] [place] [address] Power Swain, Preoperative ftbhmxpko08/14/2025bstract [facility] [address], [facility] [address] [place] [address] Power Swain, DO 06/15/2025amboo flowsheet [facility] [address], [facility] [address] [place] [address] Power Swain, DO 06/14/2025External Result Encounter [facility] External Department Unsolicited Fabiola Marinelli MD 06/14/2025External Result Encounter [facility] External Department Unsolicited Fabiola Marinelli MD 06/14/2025External Result Encounter [facility] External Department Unsolicited Fabiola Marinelli MD 06/12/2025bstract [facility] [address] [place] [address] Power Swain, DO 06/12/2025Refill [facility] [address] [place] [address] Fabiola Palumbo, TOBACCO WAREHOUSE MANAGER Hirqidelgaiwevgjjubp72/07/2025bstract [facility] [address] [place] [address] Power Swain DO 06/07/2025External Result Encounter [facility] External Department Unsolicited Fabiola Marinelli MD 06/07/2025Patient Outreach [facility] [address] [place] [address] Sima Paul RN 06/07/2025External Result Encounter [facility] External Department Unsolicited Fabiola Marinelli MD 06/07/2025Refill [facility] [address] [place] [address] Fabiola Palumbo, PAMELLA Diabetes mellitus without complication (HCC); Hypertension, unspecified type06/06/2025Orders Only [facility] [address] [place] [address] Power Swain DO 05/30/2025External Result Encounter [facility] External Department Unsolicited Fabiola Marinelli MD 05/29/2025bstract [facility] [address] [place] [address] Power Swain DO from Last 3 Months Immunizations ImmunizationAdministration DatesNext DueInfluenza, High Dose Seasonal, Preservative Free10/18/2024Influenza, injectable, quadrivalent, preservative free09/12/2019,10/14/2018Influenza, seasonal, /14/2015Influenza, seasonal, intradermal, preservative free10/05/2017Pneumococcal Conjugate PCV 13 07/16/2015Pneumococcal Conjugate PCV (Deferred: Patient Refused) Pneumococcal Polysaccharide IZZT605912/06/2016RSV, recombinant, protein subunit RSVpreF, adjuvant reconstitu, 120mcg/0.5mL, PF (Arexvy)10/18/2024 Family History Medical HistoryRelationNameCommentsLung cancerBrotherross smithdied 62No Known ProblemsDaughterHeart diseaseFatherrobert smithHypertensionFatherrobert fernando 74Prostate cancerFatherrobert smithColon cancerMotherevelyn smithHeart diseaseMotherevelyn fernandoHypertensionMotherevelyn smithdied 83CancerSibling Breast cancerSisterelsiedied 49HypertensionSonRelationNameStatusCommentsBrother coral kingctwndm2TluawjgvYghnyv0Wxngzcndcadx smithDeceasedMotherevelyn smithDeceased OjawlTpihwsOjkvqqzjLtmmlxdTslaadaabxyGizctzrpj4PfbGfhvnu6 Social History Tobacco UseTypesPacks/DayYears UsedDateSmoking Tobacco: FormerCigarettes [...] drinks on one occasion?Never06/15/2025PHQ-2AnswerDate RecordedPatient Health Questionnaire-2 Citxu629CommentsNoSex and Gender InformationValueDate Recorded Sex Assigned at BirthNot on fileLegal PzeOsbunt93/15/2023 6:38 PM EDTGender IdentityNot on fileSexual OrientationNot on fileOccupationIndustryJob Start Date Job End DateRetiredNot on fileNot on fileNot on file Last Filed Vital Signs Vital SignReadingTime TakenCommentsBlood Ddxydbeh064/6608/22/2025 2:32 PM EDT Vczrk497208/22/2025 2:32 PM DHLVwngzvepqiz48.5 ??C (97.7 ??F)08/22/2025 2:32 PM EDTRespiratory Evgu3073 2:32 PM EDTOxygen Ljtbbtmnuh09%08/22/2025 2:32 PM EDTInhaled Oxygen Concentration--Rvkuzo88.5 kg (193 lb)08/22/2025 2:32 PM EDT Rpxknj214 cm (5' 3 )08/22/2025 2:32 PM EDTBody Mass Index34.191 2:32 PM EDT Plan of Treatment DateTypeDepartmentCare Team (Latest Contact Info)Gnbsdgmnjnc21/10/2025 10:00 AM ESTOffice Visit [facility] [address] [place] [address] Power Swain, [address] [place] [address] Health MaintenanceDue DateLast DoneCommentsCT Cyvaqkiritoc1957FIT-DNA 1957FIT1957FOBT1957 9268Fzuakuhwouypz1957DTaP/Tdap/Td Vaccines (1 - Tdap)1964Hepatitis A Vaccines (1 of 2 - Risk 2-dose series) 1976Hepatitis B Vaccines (1 of 3 - Risk 3-dose series)2017 Pneumococcal Vaccine: 65+ Years (3 of 3 - PCV20 or PCV21)/01/2017, 07/16/2015COVID-19 Vaccine ( - season)/, 06/19/2021, 05/28/2021Influenza Vaccine (#1), 09/12/2019, 10/14/2018, Additional history existsDiabetes: Urine Protein Msbisqudm32, 11/30/2023, 03/04/2021, Additional history existsDiabetes: Hemoglobin A1C , 12/20/2024, 06/20/2024, Additional history existsMedicare Annual Wellness (AWV), 11/30/2023, 12/01/2022, Additional history poompsCnsvkieur21, 10/16/2022, 04/06/2020, Additional history existsDiabetes: Retinopathy Nmunmszue24, 07/01/2024, 05/06/2022, Additional history vfscozQbnwxujjrdb99, 05/01/2015, 05/01/2015, Additional history existsColorectal Cancer Screening 09/15/2028HIB VaccinesAged OutNo longer eligible based on patient's age to complete this topicHPV VaccinesAged OutNo longer eligible based on patient's age to complete this topicIPV VaccinesAged OutNo longer eligible based on patient's age to complete this topicMeningococcal B VaccineAged OutNo longer eligible based on patient's age to complete this topicMeningococcal VaccineAged OutNo longer eligible based on patient's age to complete this topicRotavirus Vaccines Aged OutNo longer eligible based on patient's age to complete this topic Procedures Procedure NamePriorityDate/TimeAssociated DiagnosisCommentsPOCT RAPID STREP A Hqieizm0908/22/2025 3:10 PM EDT COPD with acute exacerbation (HCC) PNEUMONIA (HTRX)Ndkkydt4808/22/2025 3:00 PM EDT COPD with acute exacerbation (HCC) Pharyngitis, unspecified etiology TGPNKASOGJCHR72/15/2025 10:32 AM EDT FQCDUDQYXRCL93/15/2025 8:14 AM EDT SCAN AND HJWYNBI4208/16/2025 8:14 AM EDT IRON AND TOTAL IRON BINDING FEMJFWXCTUWG88/15/2025 8:14 AM EDT COMPREHENSIVE METABOLIC UHAZQJTSF89/15/2025 8:14 AM EDT SCAN AND FKERXBY1908/09/2025 8:25 AM EDT COMPREHENSIVE METABOLIC RWRYKAgeyfak91/08/2025 8:25 AM EDT BMLAPVVTAJ69/01/2025 10:00 AM EDT IMMUNOGLOBULINS A/E/G/M, QN ([facility])STAT1 10:00 AM EDT KXQXTPPRFVAPZLrkgizz23/01/2025 10:00 AM EDT SCAN AND ITGWrespks45/01/2025 10:00 AM EDT VITAMIN A83Mbfkvcp41/01/2025 10:00 AM EDT FOLATE, ESIOQWuvxnvb70/01/2025 10:00 AM EDT UEJGNXDIUmetenv12/01/2025 10:00 AM EDT IRON AND TOTAL IRON BINDING TBMGWMWLSumqywh84/01/2025 10:00 AM EDT COMPREHENSIVE METABOLIC WLIKFZspuisb55/01/2025 10:00 AM EDT SCAN AND UOUWCDJ1507/19/2025 9:45 AM EDT COMPREHENSIVE METABOLIC VDTDOHFSP47/17/2025 9:45 AM EDT IMMUNOFIXATION,SERUM ([facility])Qjribqx1207/12/2025 8:06 AM EDT PROTEIN ELECTROPHORESIS, JWGNLVtbtlsr57/10/2025 8:06 AM EDT ALPHA FETOPROTEIN, TUMOR NAPFVEBbaojqo97/10/2025 8:06 AM EDT DIFF AND VTNZFYP8707/12/2025 8:06 AM EDT COMPREHENSIVE METABOLIC YDILXPSUK87/10/2025 8:06 AM EDT SCAN AND HPPLYEE7507/05/2025 10:07 AM EDT COMPREHENSIVE METABOLIC XYOQACPNM54/03/2025 10:07 AM EDT IMMUNOGLOBULINS A/E/G/M, QN ([facility])Xkxvnbd9806/20/2025 8:15 AM EDT DIFF AND CEASwvsxvd93/19/2025 8:15 AM EDT COMPREHENSIVE METABOLIC TSXQIJFFI80/19/2025 8:15 AM EDT ALPHA FETOPROTEIN, TUMOR ARHJNZCtmlgua04/13/2025 10:50 AM EDT SCAN AND ARHRpbybhe01/13/2025 10:50 AM EDT COMPREHENSIVE METABOLIC TKHCBFncoxbk53/13/2025 10:50 AM EDT IMMUNOFIXATION,SERUM ([facility])Ehhglpx0706/07/2025 10:13 AM EDT PROTEIN ELECTROPHORESIS, LXUSQCiaqtru29/06/2025 10:13 AM EDT FREE K+L LT CHAINS, QN, CBrfobip82/06/2025 10:13 AM EDT SCAN AND GFCHHVM7106/07/2025 10:13 AM EDT DIABETIC RETINOPATHY SCREENING - OU - BOTH NVLFXogfhoz35/05/2025 10:06 AM EDT SCAN AND WGRYCAW1605/30/2025 9:15 AM EDT HEMOGLOBIN R7RPzexevf75/21/2025 9:45 AM EDT Type 2 diabetes mellitus without complication, without long-term current use of insulin (HCC) MICROALBUMIN / CREATININE URINE TAMQIIwouplp48/25/2024 12:23 PM EDT Essential hypertension Type 2 diabetes mellitus with other specified complication, unspecified whether keno terminal operator insulin use (HCC) MM TOMOSYNTHESIS SCREENING BI08/18/2024 3:19 PM EDT ORCLNHFPBVITlyrjyw30/14/2018 12:00 PM EST from Last 3 Months or Most Recently Relevant to Health Maintenance Results * POCT rapid strep A manually resulted (08/22/2025 3:10 PM EDT)ComponentValueRef RangeTest MethodAnalysis TimePerformed AtPathologist SignatureRapid Strep A ScreenNegativeNegative, None DetectedSpecimen (Source)Anatomical Location / LateralityCollection Method / VolumeCollection TimeReceived AjohXuay93/21/2025 3:10 PM EDT Narrative Authorizing ProviderResult TypeResult StatusDaniel Brynn DOPOINT OF CARE TEST ENTER/EDIT ORDERABLESFinal Result * (ABNORMAL) PNEUMONIA (HTRX) (08/22/2025 3:00 PM EDT)ComponentValueRef Range Test MethodAnalysis TimePerformed AtPathologist SignatureSTREPTOCOCCUS PYOGENES (GROUP A STREP) (RESPIRATORY)019.961 - 24.689 ppm08/23/2025 6:49 AM EDTHealthTrackRx at LabPortSTREPTOCOCCUS PYOGENES (GROUP A STREP) (RESPIRATORY)Not Ezhbjrly22.961 - 24.689 ppm08/23/2025 6:49 AM EDT [facility] at LabPortSTREPTOCOCCUS PNEUMONIAE (RESPIRATORY)019.961 - 24.689 ppm08/23/2025 6:49 AM EDTHealthTrackRx at LabPortSTREPTOCOCCUS PNEUMONIAE (RESPIRATORY)Not Ikstxdpr43.961 - 24.689 ppm08/23/2025 6:49 AM EDT [facility] at LabPortSTREPTOCOCCUS AGALACTIAE (GROUP B STREP) (RESPIRATORY) 019.961 - 24.689 ppm08/23/2025 6:49 AM EDTHealthTrackRx at LabPort STREPTOCOCCUS AGALACTIAE (GROUP B STREP) (RESPIRATORY)Not Zczpmtaz13.961 - 24.689 ppm08/23/2025 6:49 AM EDTHealthTrackRx at LabPortSTAPHYLOCOCCUS AUREUS (RESPIRATORY)019.961 - 24.689 ppm08/23/2025 6:49 AM EDTHealthTrackRx at LabPortSTAPHYLOCOCCUS AUREUS (RESPIRATORY)Not Bqovmsei25.961 - 24.689 ppm 08/23/2025 6:49 AM EDTHealthTrackRx at LabPortSERRATIA MARCESCENS (RESPIRATORY)019.961 - 24.689 ppm08/23/2025 6:49 AM EDTHealthTrackRx at LabPortSERRATIA MARCESCENS (RESPIRATORY)Not Avrvcshg71.961 - 24.689 ppm 08/23/2025 6:49 AM EDTHealthTrackRx at LabPortRESPIRATORY SYNCYTIAL VIRUS (RESPIRATORY)023.000 - 31.953 ppm08/23/2025 6:49 AM EDTHealthTrackRx at LabPortRESPIRATORY SYNCYTIAL VIRUS (RESPIRATORY)Not Nutwvlzf45.000 - 31.953 ppm08/23/2025 6:49 AM EDTHealthTrackRx at LabPortPSEUDOMONAS AERUGINOSA (RESPIRATORY)31.113(A)19.961 - 24.689 ppm08/23/2025 6:49 AM EDTHealthTrackRx at LabPortPSEUDOMONAS AERUGINOSA (RESPIRATORY)Detected(A)19.961 - 24.689 ppm 08/23/2025 6:49 AM EDTHealthTrackRx at LabPortPROTEUS MIRABILIS, VULGARIS (RESPIRATORY)019.961 - 24.689 ppm08/23/2025 6:49 AM EDTHealthTrackRx at LabPortPROTEUS MIRABILIS, VULGARIS (RESPIRATORY)Not Dcrymzrf71.961 - 24.689 ppm08/23/2025 6:49 AM EDTHealthTrackRx at LabPortPARAINFLUENZA VIRUS (TYPES 1, 2, 3 ,4) (RESPIRATORY)023.000 - 31.487 ppm08/23/2025 6:49 AM EDTHealthTrackRx at LabPortPARAINFLUENZA VIRUS (TYPES 1, 2, 3 ,4) (RESPIRATORY)Not Detected 23.000 - 31.487 ppm08/23/2025 6:49 AM EDTHealthTrackRx at LabPortMYCOPLASMA PNEUMONIAE (RESPIRATORY)019.961 - 24.689 ppm08/23/2025 6:49 AM EDT [facility] (RESPIRATORY)Not Yjzskhge65.961 - 24.689 ppm08/23/2025 6:49 AM EDTHealthTrackRx at LabD[facility] HospitalMORAXELLA CATARRHALIS (RESPIRATORY)019.961 - 24.689 ppm08/23/2025 6:49 AM EDT [facility] LabDunn [facility] HospitalMORAXELLA CATARRHALIS (RESPIRATORY)Not Xncgvrne53.961 - 24.689 ppm08/23/2025 6:49 AM EDTHealthTrackRx at [facility] HospitalLEGIONELLA PNEUMOPHILA (RESPIRATORY)019.961 - 24.689 ppm08/23/2025 6:49 AM EDT [facility] HospitalLEGION[facility]LLA PNEUMOPHILA (RESPIRATORY)Not Nqsrxaqj30.961 - 24.689 ppm08/23/2025 6:49 AM EDTHealthTrackRx at [facility] HospitalKLEBSIELLA PNEUMONIAE, OXYTOCA (RESPIRATORY)019.961 - 24.689 ppm08/23/2025 6:49 AM EDT [facility] HospitalKLEBSIELLA PNEUMONIAE, OXYTOCA (RESPIRATORY)Not Pzwivxpq10.961 - 24.689 ppm08/23/2025 6:49 AM EDTHealthTrackRx at [facility] INFLUENZA VIRUS, A, B (RESPIRATORY)023.000 - 29.803 ppm08/23/2025 6:49 AM EDT [facility] A, B (RESPIRATORY)Not Rhhitead52.000 - 29.803 ppm08/23/2025 6:49 [facility] METAPNEUMOVIRUS (RESPIRATORY)023.000 - 33.630 ppm08/23/2025 6:49 AM EDT [facility] METAPNEUMOVIRUS (RESPIRATORY)Not Nthavofs28.000 - 33.630 ppm08/23/2025 6:49 AM [facility]EM[facility]ILUS INFLUENZAE (RESPIRATORY)019.961 - 24.689 ppm08/23/2025 6:49 AM EDT [facility]PIRAT[facility])Not Umulbqjy05.961 - 24.689 ppm08/23/2025 6:49 AM [facility]CH[facility]ICHIA COLI (RESPIRATORY)019.961 - 24.689 ppm08/23/2025 6:49 AM [facility] (RESPIRATORY)Not Psasabdj38.961 - 24.689 ppm08/23/2025 6:49 AM [facility]PortENTEROVIRUS D68 (RESPIRATORY)023.000 - 32.268 ppm08/23/2025 6:49 AM [facility] D68 (RESPIRATORY)Not Stqggqqs67.000 - 32.268 ppm08/23/2025 6:49 AM EDT [facility]PortOTHER CORONAVIRUSES (229E, NL63, HKU1, OC43) (RESPIRATORY)023.000 - 30.477 ppm08/23/2025 6:49 AM EDTHealthTrackRx at LabPortOTHER CORONAVIRUSES (229E, NL63, HKU1, OC43) (RESPIRATORY)Not Detected 23.000 - 30.477 ppm08/23/2025 6:49 AM EDTHealthTrackRx at LabPortCHLAMYDIA PNEUMONIAE (RESPIRATORY)019.961 - 24.689 ppm08/23/2025 6:49 AM EDT [facility] at LabPortCHLAMYDIA PNEUMONIAE (RESPIRATORY)Not Mwmxzsyv67.961 - 24.689 ppm08/23/2025 6:49 AM EDTHealthTrackRx at LabPortBORDETELLA PERTUSSIS, PARAPERTUSSIS, BRONCHISEPTICA (RESPIRATORY)019.961 - 24.689 ppm08/23/2025 6:49 AM EDTHealthTrackRx at LabPortBORDETELLA PERTUSSIS, PARAPERTUSSIS, BRONCHISEPTICA (RESPIRATORY)Not Lruwgwde64.961 - 24.689 ppm08/23/2025 6:49 AM EDTHealthTrackRx at LabPortACINETOBACTER BAUMANNII (RESPIRATORY)019.961 - 24.689 ppm08/23/2025 6:49 AM EDTHealthTrackRx at LabPortACINETOBACTER BAUMANNII (RESPIRATORY)Not Bzgxhfir76.961 - 24.689 ppm08/23/2025 6:49 AM EDT [facility] HospitalHTRX COVID-19 AOYAJGCKHHG351.000 - 31.947 ppm 08/23/2025 6:49 AM EDTHealthTrackRx at LabDunn Memorial HospitalHTRX COVID-19 CORONAVIRUSNot Ifyjsnwj26.000 - 31.947 ppm08/23/2025 6:49 AM EDT[facility] RHINOVIRUS/ENTEROVIRUS (RESPIRATORY)29.8(A)23.000 - 30.000 ppm08/23/2025 6:49 AM EDTHealthTrackRx at LabDunn Memorial HospitalRHINOVIRUS/ENTEROVIRUS (RESPIRATORY)Detected(A) 23.000 - 30.000 ppm08/23/2025 6:49 AM EDTHealthTrackRx at [facility] HospitalADENOVIRUS HADV-B (RESPIRATORY)023.000 - 31.833 ppm08/23/2025 6:49 AM EDTHealthTrackRx at LabDunn Memorial HospitalADENOVIRUS HADV-B (RESPIRATORY)Not Jrsqqycl65.000 - 31.833 ppm 08/23/2025 6:49 AM EDTHealthTrackRx at LabDunn Memorial HospitalENTEROBACTER CLOACAE COMPLEX, KLEBSIELLA (ENTEROBACTER) AEROGENES (UMHEXCIR295.961 - 24.689 ppm08/23/2025 6:49 AM EDTHealthTrackRx at LabDunn Memorial HospitalENTEROBACTER CLOACAE COMPLEX, KLEBSIELLA (ENTEROBACTER) AEROGENES (RESPIRATNot Midjiusg04.961 - 24.689 ppm08/23/2025 6:49 AM EDTHealthTrackRx at LabPortSpecimen (Source)Anatomical Location / LateralityCollection Method / VolumeCollection TimeReceived TimePulmonary 08/22/2025 3:00 PM EDT1 10:26 PM EDT Narrative Authorizing ProviderResult TypeResult StatusDaniel Brynn DOLAB BLOOD ORDERABLES Edited Result - FinalPerforming OrganizationAddressCity/State/ZIP CodePhone Number [facility] at LabLori V[place] [address] [place] [address] * (ABNORMAL) Magnesium (08/16/2025 10:32 AM EDT)ComponentValueRef RangeTest MethodAnalysis TimePerformed AtPathologist SignatureMAGNESIUM1.7(L)1.9 - 2.7 mg/dL08/16/2025 11:04 AM [facility] CtrSpecimen (Source) Anatomical Location / LateralityCollection Method / VolumeCollection Time Received TimeOtherTopography unknown / Qenncao9008/16/2025 10:32 AM EDT 08/16/2025 10:32 AM EDT Narrative Authorizing ProviderResult TypeResult StatusFabiola Marinelli MDLAB BLOOD ORDERABLES Final ResultPerforming OrganizationAddressCity/State/ZIP CodePhone Number [facility] [address] [place] [address], [facility] [address] [place] [address] * (ABNORMAL) SCAN AND CBC (08/16/2025 8:14 AM EDT) Only the most recent of8 resultswithin the time period is included. ComponentValueRef RangeTest MethodAnalysis TimePerformed AtPathologist Signature WBC1.8(L)3.8 - 11.6 [CFU]/mL08/16/2025 8:40 AM [facility] Ctr UNCORRECTED WHITE BLOOD COUNT1.8(L)3.8 - 11.6 10*3/uL08/16/2025 8:40 AM EDT [facility] CtrRBC3.45(L)3.60 - 5.00 10*6/uL08/16/2025 8:40 AM [facility] BvkCEXPFLMTUE59.2(L)11.8 - 15.4 g/dL08/16/2025 8:40 AM [facility] TjePFCPZFGUJU02.6(L)34.0 - 46.4 % 08/16/2025 8:40 AM [facility] VcxAHN26.480 - 100 fL08/16/2025 8:40 AM [facility] DksSKJ57.424.7 - 34.3 pg08/16/2025 8:40 AM [facility] YrvEQLT09.432.0 - 35.0 g/dL08/16/2025 8:40 AM [facility] CtrRED CELL DISTRIBUTION WIDTH, RDW15.311.9 - 15.3 %08/16/2025 8:40 AM [facility] CtrPLATELET COUNT44(L)150 - 450 10*3/uL08/16/2025 8:40 AM [facility] CtrMEAN PLATELET VOLUME, MPV7.96.3 - 10.7 fL08/16/2025 8:40 AM [facility] Ctr NEUTROPHILS, %36.0. %08/16/2025 9:03 AM [facility] LYMPHOCYTES, %16.6. %08/16/2025 9:03 AM [facility]tr MONOCYTE/MACROPHAGE, %13.4. %08/16/2025 9:03 AM [facility] CtrEOSINOPHILS, %33.6. %08/16/2025 9:03 AM [facility] BASOPHILS, %0.4. %08/16/2025 9:03 AM [facility] CtrNRBC0.00 - 0.5 /100{WBC}08/16/2025 9:03 AM [facility] CtrNEUTROPHILS0.7 (L)1.8 - 7.7 10*3/uL08/16/2025 9:03 AM [facility]tr LYMPHOCYTES0.3(L)1.00 - 4.8 10*3/uL08/16/2025 9:03 AM [facility] CtrMONOCYTES0.20.0 - 0.8 10*3/uL08/16/2025 9:03 AM [facility] CtrEOSINOPHILS0.6(H)0.0 - 0.45 10*3/uL08/16/2025 9:03 AM [facility] CtrBASOPHILS0.00.0 - 0.2 10*3/uL08/16/2025 9:03 AM [facility] WmxKRGYTZGDGYTxgdlt56/15/2025 9:03 AM [facility] CtrPLATELET ILJPXTYMBaurtcpntPbbyjy65/15/2025 9:03 AM [facility] CtrPLATELET OHOYBIOLMWVdyffnRmgcmf22/15/2025 9:03 AM EDT [facility] CtrSpecimen (Source)Anatomical Location / Laterality Collection Method / VolumeCollection TimeReceived TimeBlood (Blood)08/16/2025 8:14 AM EDT1 8:18 AM EDT Narrative Authorizing ProviderResult TypeResult StatusFabiola Ching Yves JASSOLAB BLOOD ORDERABLES Final ResultPerforming OrganizationAddressCity/State/ZIP CodePhone Number [facility] [address] [place] [address], [facility] [address] [place] [address] * Iron and TIBC (08/16/2025 8:14 AM EDT) Only the most recent of2 resultswithin the time period is included. ComponentValueRef RangeTest MethodAnalysis TimePerformed AtPathologist Signature FJJB9548 - 212 ug/dL08/16/2025 8:48 AM [facility] CtrTOTAL IRON BINDING MWQIOXLZ514335 - 450 ug/dL08/16/2025 8:48 AM [facility] Ctr% IRON KLWUAAJXFG06.920 - 50 %08/16/2025 8:48 AM [facility] DgwNNJPCCUMJHQ015772 - 362 mg/dL08/16/2025 8:48 AM EDT [facility] CtrSpecimen (Source)Anatomical Location / Laterality Collection Method / VolumeCollection TimeReceived TimeOtherTopography unknown / Alqhwpy6708/16/2025 8:14 AM EDT1 8:18 AM EDT Narrative Authorizing ProviderResult TypeResult StatusFabiola Marinelli MDLAB BLOOD ORDERABLES Final ResultPerforming OrganizationAddressCity/State/ZIP CodePhone Number [facility] [address] [place] [address], [facility] [address] [place] [address] * Ferritin (08/16/2025 8:14 AM EDT) Only the most recent of2 resultswithin the time period is included. ComponentValueRef RangeTest MethodAnalysis TimePerformed AtPathologist Signature JZRYKXKQ168.111.0 - 306.8 ng/mL08/16/2025 9:07 AM [facility] CtrSpecimen (Source)Anatomical Location / LateralityCollection Method / Volume Collection TimeReceived TimeOtherTopography unknown / Bstkibz1908/16/2025 8:14 AM EDT1 8:18 AM EDT Narrative Authorizing ProviderResult TypeResult StatusFabiola KIRKPATRICK BLOOD ORDERABLES Final ResultPerforming OrganizationAddressCity/State/ZIP CodePhone Number [facility] [address] [place] [address], [facility] [address] [place] [address] * (ABNORMAL) Comprehensive metabolic panel (08/16/2025 8:14 AM EDT) Only the most recent of8 resultswithin the time period is included. ComponentValueRef RangeTest MethodAnalysis TimePerformed AtPathologist Signature Mdfsuwo185(H)70 - 100 mg/dL08/16/2025 8:48 AM [facility] Ctr Comment: Random Glucose Reference Range is dependent on time and content of last meal. Glucose of more than 200 mg/dL in a nonstressed, ambulatory subject supports the diagnosis of Diabetes Mellitus. ADA recommended reference range EGY636 - 25 mg/dL08/16/2025 8:48 AM [facility] CtrCREATININE 0.990.60 - 1.20 mg/dL08/16/2025 8:48 AM [facility]tr ESTIMATED GFR>60. 8:48 AM [facility] SodJkkfjz493 136 - 145 mmol/L1 8:48 AM [facility] CtrPotassium, Bld4.13.5 - 5.1 mmol/L1 8:48 AM [facility]tr Rwgmoztj42416 - 107 mmol/L1 8:48 AM [facility] Carbon Usmlqtx07.521.0 - 31.0 mmol/L1 8:48 AM [facility] CtrAnion Gap8.66.0 - 15. 8:48 AM [facility] CtrCalcium9.08.6 - 10.3 mg/dL08/16/2025 8:48 AM [facility] CtrTOTAL PROTEIN5.5(L)6.4 - 8.9 g/dL08/16/2025 8:48 AM [facility] CtrALBUMIN LEVEL3.63.5 - 5.7 g/dL08/16/2025 8:48 AM EDT [facility] CtrGLOBULIN1.9g/dL08/16/2025 8:48 AM [facility] CtrALBUMIN/GLOBULIN RATIO1.91 8:48 AM [facility] CtrBILIRUBIN,TOTAL0.90.3 - 1.0 mg/dL08/16/2025 8:48 AM EDT [facility] CtrASPARTATE AMINO PMGMAXVBJEB2279 - 39 U/L1 8:48 AM [facility] CtrALANINE AYISOVCVSWFNIVJA447 - 52 U/L 08/16/2025 8:48 AM [facility] CtrALKALINE ANXVCYPDZXI8539 - 104 U/L1 8:48 AM [facility] CtrCREATININE CLR CALC NWOPVYUD63.181 8:48 AM [facility] CtrSpecimen (Source)Anatomical Location / LateralityCollection Method / VolumeCollection TimeReceived TimeOtherTopography unknown / Iwrwzoo1008/16/2025 8:14 AM EDT 08/16/2025 8:18 AM EDT Narrative Authorizing ProviderResult TypeResult StatusFabiola KIRKPATRICK BLOOD ORDERABLES Final ResultPerforming OrganizationAddressCity/State/ZIP CodePhone Number [facility] [address] [place] [address], [facility] [address] [place] [address] * IMMUNOGLOBULINS A/E/G/M, QN ([facility]) (08/02/2025 10:00 AM EDT) Only the most recent of2 resultswithin the time period is included. ComponentValueRef RangeTest MethodAnalysis TimePerformed AtPathologist Signature IMMUNOGLOBULIN K585350 - 1,602 mg/dL08/07/2025 6:36 [address] [facility]MMUNOGLOB[facility]IN A, SERUM<587 - 352 mg/dL08/07/2025 6:36 AM EDTFSWEDISH MEDICAL CENTER ISSAQUAHComment: Result confirmed on concentration.IMMUNOGLOBULIN M, SERUM<526 - 217 mg/dL 08/07/2025 6:36 AM EDTFIRELANDSComment:Result confirmed on concentration. IMMUNOGLOBULIN E<26 - 9244808/07/2025 6:36 AM EDTFIRELANDSComment: Performed at: ?? - [address] ??[id number] [employer] Crop Farmworker: Lang Knight PhD, Phone: ??[phone] Performed at: ?? - [address] ??[id number] [employer] Farmworker: Maxine Briones MD, Phone: ??[phone] Specimen (Source)Anatomical Location / LateralityCollection Method / Volume Collection TimeReceived TimeOtherTopography unknown / Mmtstzn7708/02/2025 10:00 AM EDT1 10:04 AM EDT Narrative Authorizing ProviderResult TypeResult StatusFabiola Marinelli MDLAB BLOOD ORDERABLES Final ResultPerforming [facility] HospitalPhone [facility] [address] [place] [address], * Copper, serum (08/02/2025 10:00 AM EDT)ComponentValueRef RangeTest Method Analysis TimePerformed AtPathologist OfveugoebUTWKIQ88985 - 158 ug/dL 08/08/2025 10:06 PM EDTFIRELANDSComment: This test was developed and its performance characteristics determined by [facility]. It has not been cleared or approved by the Food and Drug Administration. ?Detection Limit = 5 Performed at: ??[address] ??[id number] [employer] C[employer] Farmworker: Maxine Briones MD, Phone: ??[phone] Specimen (Source)Anatomical Location / LateralityCollection Method / Volume Collection TimeReceived TimeOtherTopography unknown / Owgatas3908/02/2025 10:00 AM EDT1 10:04 AM EDT Narrative Authorizing ProviderResult TypeResult StatusFabiola KIRKPATRICK BLOOD ORDERABLES Final ResultPerforming OrganizationAddressty/State/ZIP CodePhone Number [address] [place] [address], * Ceruloplasmin (08/02/2025 10:00 AM EDT)ComponentValueRef RangeTest Method Analysis TimePerformed AtPathologist VaoxaoikyRRRUKSOUOQUVN11.419.0 - 39.0 mg/dL08/03/2025 3:36 AM EDTFIRENAVAL HOSPITAL BREMERTONComment: Performed at: ?? - [facility] [address] ??[id number] [employer] C[employer] Farmworker: Lang Knight PhD, Phone: ??[phone] Specimen (Source)Anatomical Location / LateralityCollection Method / Volume Collection TimeReceived TimeOtherTopography unknown / Pbkqpkx5608/02/2025 10:00 AM EDT1 10:04 AM EDT Narrative Authorizing ProviderResult TypeResult StatusFabiola KIRKPATRICK BLOOD ORDERABLES Final ResultPerforming OrganizationAddressCity/State/ZIP CodePhone Number [address] [address], * Folate (08/02/2025 10:00 AM EDT)ComponentValueRef RangeTest MethodAnalysis TimePerformed AtPathologist SignatureFOLATE9.9>5.9 ng/mL08/02/2025 11:02 AM [facility] CtrComment: Folate reference range: >5.9 ng/ml The WHO technical consultation on folate and vitamin b12 deficiencies has determined that folate concentrations less than 4 ng/ml are considered deficient. Specimen (Source)Anatomical Location / LateralityCollection Method / Volume Collection TimeReceived TimeOtherTopography unknown / Cwkpeyv7208/02/2025 10:00 AM EDT1 10:04 AM EDT Narrative Authorizing ProviderResult TypeResult StatusFabiola KIRKPATRICK BLOOD ORDERABLES Final ResultPerforming OrganizationAddressty/State/ZIP CodePhone Number [address] [place] [address], [facility] [address] [place] [address] * (ABNORMAL) Vitamin B12 (08/02/2025 10:00 AM EDT)ComponentValueRef RangeTest MethodAnalysis TimePerformed AtPathologist SignatureVITAMIN B121,113(H)180 - 914 pg/mL08/02/2025 11:03 AM [facility] CtrSpecimen (Source)Anatomical Location / LateralityCollection Method / VolumeCollection TimeReceived TimeOtherTopography unknown / Ahthole8108/02/2025 10:00 AM EDT 08/02/2025 10:04 AM EDT Narrative Authorizing ProviderResult TypeResult StatusFabiola KIRKPATRICK BLOOD ORDERABLES Final ResultPerforming OrganizationAddressCity/State/ZIP CodePhone Number [facility] [address] [place] [address], [facility] [address] [place] [address] * (ABNORMAL) DIFF AND CBC (07/12/2025 8:06 AM EDT) Only the most recent of2 resultswithin the time period is included. ComponentValueRef RangeTest MethodAnalysis TimePerformed AtPathologist Signature WBC2.5(L)3.8 - 11.6 [CFU]/mL07/12/2025 8:33 AM [facility] UNCORRECTED WHITE BLOOD COUNT2.5(L)3.8 - 11.6 10*3/uL07/12/2025 8:33 AM EDT [facility] CtrRBC3.52(L)3.60 - 5.00 10*6/uL07/12/2025 8:33 AM [facility] LsnRMTSJCQIMV26.6(L)11.8 - 15.4 g/dL07/12/2025 8:33 AM [facility] RnlELRNDBDUUX11.534.0 - 46.4 %07/12/2025 8:33 AM [facility] WdzDIH01.080 - 100 fL07/12/2025 8:33 AM [facility] HzbQVY68.924.7 - 34.3 pg07/12/2025 8:33 [facility] ZlaLEWO45.532.0 - 35.0 g/dL07/12/2025 8:33 AM [facility] CtrRED CELL DISTRIBUTION WIDTH, RDW15.211.9 - 15.3 % 07/12/2025 8:33 AM [facility] CtrPLATELET COUNT57(L)150 - 450 10*3/uL09/08/2025 8:33 AM [facility] CtrMEAN PLATELET VOLUME, MPV9.06.3 - 10.7 fL07/12/2025 8:33 AM [facility] SEGMENTED NIBZZDXPLXV64(L)50 - 70 %07/12/2025 9:09 AM [facility] CtrBAND DDZZSPQUZGK17 - 5 %07/12/2025 9:09 AM [facility] TpwTQZTHAMXRQN6163 - 42 %07/12/2025 9:09 AM [facility] TnjGVKJVQAPP73(H)2 - 11 %07/12/2025 9:09 AM [facility] YidRIPCAYQMXNU68(H)1 - 3 %07/12/2025 9:09 AM [facility] KdtMQBXUWVIJIHPNZSgbkmyqx95/10/2025 9:09 AM [facility] QghTFEQUDLYUQEhhbkrtt95/10/2025 9:09 AM [facility] CtrPLATELET BZXOECFJOngxzjgdySiexkk89/10/2025 9:09 AM [facility] CtrPLATELET RWXZXLYOYFRiyxxlAdekfe73/10/2025 9:09 AM [facility] CtrSpecimen (Source)Anatomical Location / LateralityCollection Method / VolumeCollection TimeReceived TimeBlood (Blood)07/12/2025 8:06 AM EDT 07/12/2025 8:16 AM EDT Narrative Authorizing ProviderResult TypeResult StatusFabiola KIRKPATRICK BLOOD ORDERABLES Final ResultPerforming OrganizationAddressCity/State/ZIP CodePhone Number [facility] [address] [place] [address], [facility] [address] [place] [address] * IMMUNOFIXATION,SERUM ([facility]) (07/12/2025 8:06 AM EDT) Only the most recent of2 resultswithin the time period is included. ComponentValueRef RangeTest MethodAnalysis TimePerformed AtPathologist Signature IMMUNOFIXATION, SERUMComment.07/14/2025 2:09 PM EDTFSWEDISH MEDICAL CENTER ISSAQUAHComment:No monoclonality detected.IMMUNOGLOBULIN Y388780 - 1,602 mg/dL07/14/2025 2:09 PM EDTFIRELANDSIMMUNOGLOBULIN A, SERUM<587 - 352 mg/dL07/14/2025 2:09 PM EDT FIRELANDSComment:Result confirmed on concentration.IMMUNOGLOBULIN M, SERUM<526 - 217 mg/dL07/14/2025 2:09 PM EDTFIRELANDSComment: Result confirmed on concentration. Performed at: ??[address] ??[id number] [employer] C[employer] Farmworker: Lang nKight PhD, Phone: ??[phone] Specimen (Source)Anatomical Location / LateralityCollection Method / Volume Collection TimeReceived TimeOtherTopography unknown / Qwpoivd7407/12/2025 8:06 AM EDT07/12/2025 8:16 AM EDT Narrative Authorizing ProviderResult TypeResult StatusFabiola KIRKPATRICK BLOOD ORDERABLES Final ResultPerforming [facility]Add[facility] HospitalPhone [facility] [address] * AFP tumor marker (07/12/2025 8:06 AM EDT) Only the most recent of2 resultswithin the time period is included. ComponentValueRef RangeTest MethodAnalysis TimePerformed AtPathologist Signature AFP TUMOR MARKER, SERUM4.60.0 - 9.2 ng/mL07/13/2025 12:09 PM EDTFIRENAVAL HOSPITAL BREMERTON Comment: [employer] Electrochemiluminescence Immunoassay (ECLIA) Values obtained with different assay methods or kits cannot be used interchangeably. ??Results cannot be interpreted as absolute evidence of the presence or absence of malignant disease. This test is not interpretable in females. Performed at: ??[address] ??[id number] [employer] C[employer] Farmworker: Lang Knight PhD, Phone: ??[phone] Specimen (Source)Anatomical Location / LateralityCollection Method / Volume Collection TimeReceived TimeOtherTopography unknown / Pbzotdg6807/12/2025 8:06 AM EDT07/12/2025 8:16 AM EDT Narrative Authorizing ProviderResult TypeResult StatusFabiola KIRKPATRICK BLOOD ORDERABLES Final ResultPerforming OrganizationAddressty/[facility]/ZIP CodePhone Number [facility] [address] [place] [address], * Protein electrophoresis, serum (07/12/2025 8:06 AM EDT) Only the most recent of2 resultswithin the time period is included. ComponentValueRef RangeTest MethodAnalysis TimePerformed AtPathologist Signature TOTAL PROTEIN, SERUM5.46.0 - 8.5 g/dL07/13/2025 2:08 PM EDTFIRELANDSALBUMIN, SERUM3.12.9 - 4.4 g/dL07/13/2025 2:08 PM SWTIHMCADJBKMEZUQ-2-KVBRQOAP6.30.0 - 0.4 g/dL07/13/2025 2:08 PM GVLDRWPBBSVGSCUSF-9-KDTYOVCK5.70.4 - 1.0 g/dL 07/13/2025 2:08 PM EDTFIRELANDSBETA GLOBULIN0.80.7 - 1.3 g/dL07/13/2025 2:08 PM EDTFIRELANDSGAMMA GLOBULIN0.40.4 - 1.8 g/dL07/13/2025 2:08 PM EDTFIRELANDS M-SPIKENot ObservedNot Observed g/dL07/13/2025 2:08 PM EDTFIRELANDSGLOBULIN, TOTAL2.32.2 - 3.9 g/dL07/13/2025 2:08 PM EDTFIRELANDSA/G RATIO1.30.7 - 1.7 07/13/2025 2:08 PM EDTFIRELANDSSPE-NOTEComment.07/13/2025 2:08 PM EDTFIRELANDS Comment: Protein electrophoresis scan will follow via computer, mail, or doctor of naprapathy delivery. Performed at: ??CB - [facility] [address] ??[id number] Field Crop Farmworker: Lang Knight PhD, Phone: ??[phone] Specimen (Source)Anatomical Location / LateralityCollection Method / Volume Collection TimeReceived TimeOtherTopography unknown / Gzullip8307/12/2025 8:06 AM EDT07/12/2025 8:16 AM EDT Narrative Authorizing ProviderResult TypeResult StatusFabiola KIRKPATRICK BLOOD ORDERABLES Final ResultPerforming OrganizationAddressCity/State/ZIP CodePhone Number [facility] [address] [place] [address], * FREE K+L LT CHAINS, QN, S (06/07/2025 10:13 AM EDT)ComponentValueRef RangeTest MethodAnalysis TimePerformed AtPathologist SignatureFREE KAPPA LIGHT CHAINS, S<0.73.3 - 19.4 mg/L06/08/2025 2:36 PM EDTFIRELANDSFREE LAMBDA LIGHT CHAINS, S 5.85.7 - 26.3 mg/L06/08/2025 2:36 PM EDTFIRELANDSKAPPA/LAMBDA RATIO, S<0.12 0.26 - 1.6508 2:36 PM EDTFIRELANDSComment: Performed at: ??CB - [facility] [address] ??[id number] [employer] Crop Farmworker: Lang Knight PhD, Phone: ??[phone] Specimen (Source)Anatomical Location / LateralityCollection Method / Volume Collection TimeReceived TimeOtherTopography unknown / Woixhmp0806/07/2025 10:13 AM EDT06/07/2025 10:20 AM EDT Narrative Authorizing ProviderResult TypeResult StatusFabiola KIRKPATRICK BLOOD ORDERABLES Final ResultPerforming OrganizationAddressCity/State/ZIP CodePhone Number [address] [place] [id number], * Diabetic Retinopathy Screening - OU - Both Eyes (06/06/2025 10:06 AM EDT) Anatomical RegionLateralityModalityHeadOther Narrative Authorizing ProviderResult TypeResult StatusDaniel Brynn DOOPHTH PHOTOGRAPHY Final Result * Hemoglobin A1c (05/22/2025 9:45 AM EDT)Specimen (Source)Anatomical Location / LateralityCollection Method / VolumeCollection TimeReceived TimeBloodVenous blood specimen / Unknown Narrative Authorizing ProviderResult TypeResult StatusDaniel Brynn DOLAB BLOOD ORDERABLES Final ResultPerforming OrganizationAddressCity/State/ZIP CodePhone Number EXTERNAL LAB * Microalbumin / creatinine urine ratio (08/26/2024 12:23 PM EDT)ComponentValue Ref RangeTest MethodAnalysis TimePerformed AtPathologist Signature MICROALBUMIN, URINE< 0.70.0 - 1.810 1:19 PM [facility] CtrCREATININE, URINE (RANDOM)11.00mg/dL08/26/2024 1:17 PM [facility] CtrComment:No reference range established MICROALBUMIN/CREATININE RATIOTest not performed0.0 - 30.010 1:19 PM [facility] CtrSpecimen (Source)Anatomical Location / LateralityCollection Method / VolumeCollection TimeReceived TimeOtherUrine specimen obtained by clean catch procedure / Kpbiegz4508/26/2024 12:23 PM EDT 08/26/2024 12:23 PM EDT Narrative Authorizing ProviderResult TypeResult StatusAmy Warchol NPLAB URINE ORDERABLES Final ResultPerforming OrganizationAddressCity/State/ZIP CodePhone Number [facility] [address] [place] [address], [facility] [address] [place] [address] * MM TOMOSYNTHESIS SCREENING BI (08/18/2024 3:19 PM EDT)Anatomical Region LateralityModalityOtherSpecimen (Source)Anatomical Location / Laterality Collection Method / VolumeCollection TimeReceived Time08/18/2024 3:19 PM EDT Narrative 08/18/2024 3:20 PM EDT [facility] ?[address] ? [place] [address] ? Mammography Report ? Signed ? Patient: SNIDER,MOJGAN S ?MR#: [id number] ?? : 1955 ?Acct:[id number] ?? Age/Sex: 68 / F ?ADM Date: 10/17/24 ?? Loc: MAMMO ? Attending Dr: YINKA THOMSON ? Ordering Physician: JOHN,YINKA ? Results: ? Date of Service: 10/17/24 ?Follow Up: ? Procedure(s): MM tomosynthesis screening BI ?? Accession Number(s): [id number] ? cc: YINKA THOMSON ? Patient Name: ? MOJGAN SNIDER ? MR#: [id number] ? : 1955 ? Exam Date: 08/18/2024 [...] at age 66. ? LOCATION: ? [facility] ? BREAST COMPOSITION: ? There are scattered [...] 1520 ? DD/ 1519 ? TD/TT: ? Rubber Tile Floor Layer: Procedure Note Radiology, Radiologist, MD - 08/18/2024 [place] [address] Mammography Report Signed Patient: MOJGAN SNIDER SMR#: [id number] : 1955cct:[id number] Age/Sex: 68 / FADM Date: 08/18/24 Loc: MAMMO Attending Dr: YINKA THOMSON Ordering Physician: YINKA THOMSONResults: Date of Service: 08/18/24Follow Up: Procedure(s): MM tomosynthesis screening BI Accession Number(s): [id number] cc: YINKA THOMSON Patient Name: MOJGAN SNIDER MR#: [id number] : 1955 Exam Date: 08/18/2024 Ordering Doctor: [...] lung cancer at age 66. LOCATION: The [facility] BREAST COMPOSITION: There are scattered areas of [...] M.D. Signed By:08/18/24 1520 DD/ 1519 TD/TT: Rubber Tile Floor Layer: Authorizing ProviderResult TypeResult Melisa Thomson MDCLINISYNC IMAGING Final Result * Colonoscopy (09/15/2018 12:00 PM EST)Anatomical RegionLateralityModality EndoscopySpecimen (Source)Anatomical Location / LateralityCollection Method / VolumeCollection TimeReceived Time09/15/2018 12:00 PM EST Narrative 09/15/2018 12:00 PM EST PERFORMED AT [facility] LOCATION:[id number] Abnormal Procedure Note CONVERSION, GENERIC - 03/18/2023 PERFORMED AT [facility] LOCATION:[id number] Abnormal Authorizing ProviderResult TypeResult Melisa Thomson MDENDOSCOPY PROCEDURE ORDERABLESFinal Result from Last 3 Months or Most Recently Relevant to Health Maintenance [place] [address] Advance Directives * Full Code (Latest Code Status on File) Date ActivatedDate InactivatedComments03/01/2025 2:43 PM Care Teams Team MemberRelationshipSpecialtyStart DateEnd Date Yinka Thomson MD [address] [place] [address] PCP - ACO [facility]03/26/23 Power Swain DO [address] [address] PCP - GeneralFamily Medicine04/25/25 Sima Paul, LES [address] [place], [place] [address] Registered NurseFamily Aqdrfcec41/23/23
--- OUTSIDE RECORDS SUMMARY | 2025-08-29 07:37 | XMS_ITS ---
Author Organization [facility] Address [address] [place] [address] Phone Care Team Providers Care Geriatric Social Worker Name Role Phone Supa Lindquist MD PhD Unavailable [phone] Jessica Grove RN Unavailable Unavailable Lisette Perkins HOT SAW HELPER-DIRECTOR OF PERIOPERATIVE SERVICES Unavailable [phone] Theresa Romano MD PhD Unavailable [phone] Negro Epps MD PhD Unavailable [phone] Power Swain DO Primary Care Provider [phone] Active Problems ProblemNoted DateDiagnosed DateMultiple myeloma not having achieved remission 7863Pvwqlqaikoxv94/13/2023 Assessment & Plan (08/17/2023 7:42 AM EDT): Due to disease and chemotherapy Transfuse for Hgb < 7 g/dL and platelets < 10 k/uL or bleeding Assessment & Plan (08/14/2023 11:02 AM EDT): :: Due to disease and chemotherapy - Transfuse for Hgb < 7 g/dL and platelets < 10 k/uL or bleeding Okqostfxrirv94/04/9267Vzdjbtjtcuptdn74/04/2023Type 2 diabetes iirhotfw88/04/2023 Peripheral qibuuljcfz39/04/2023Multiple pfevufi8008/03/2023 Assessment & Plan (09/28/2023 6:52 PM EST): Referral from Dr. Marinelli at [facility]. MGUS since 2005 Followed at [facility] by Dr. Kumari, and then [...] radiation field this may not be entirely customer success representative. 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 Cont monthly. Assessment & Plan (01/28/2024 12:26 PM EDT): Infection prophylaxis VZV: Acyclovir 400 mg PO BID PJP: Trimethoprim-sulfamethoxazole 800-160 mg PO 3x weekly Hypogammaglobulinemia IVIG given 09/22/23, 10/29/23 ([facility]) 12/08/23 and 01/12/24. Cont monthly. Assessment & Plan (01/14/2024 10:27 AM EDT): Infection prophylaxis VZV: Acyclovir 400 mg PO BID PJP: Trimethoprim-sulfamethoxazole 800-160 mg PO 3x weekly Hypogammaglobulinemia IVIG given 09/22/23, 10/29/23 ([facility]) and 12/08/23. Plan next today 01/12/24. Assessment & Plan (01/03/2024 11:33 AM EST): Infection prophylaxis VZV: Acyclovir 400 mg PO BID PJP: Trimethoprim-sulfamethoxazole 800-160 mg PO 3x weekly Hypogammaglobulinemia IVIG given 09/22/23, 10/29/23 ([facility]) and 12/08/23. Plan next dose 01/05/24. Assessment & Plan (11/28/2023 4:08 PM EST): Infection prophylaxis VZV: Acyclovir 400 mg PO BID PJP: Trimethoprim-sulfamethoxazole 800-160 mg PO 3x weekly Hypogammaglobulinemia IVIG given 09/22/23 and 10/29/23 ([facility]) Plan next dose 12/08/23 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)07/11/2019 Primary localized osteoarthrosis of ankle and foot06/01/2019Chronic obstructive pulmonary qshmpqg8204/19/2019Smoldering bzsuhvh4804/19/2019Thoracic aortic aneurysm without yqptujh6504/15/2019GERD (gastroesophageal reflux disease)04/07/2018Morbid vtjjnvz1711/11/2017Familial ttneitiqgjuidtmnycrc63/12/2015Thrombocytopenia 05/31/2014Sleep apnea04/15/2006Monoclonal vaaugbftwvqtzbl63/25/2006 Current Treatment and Therapy Plans Blood Products, [...] of 13 cycles startedTeclistamab (Weekly), 28 Day Eqaxvt04/* teclistamab-cqyv (Tecvayli) Change in Level of CareSupa Lindquist MD PhD2 of 3 cycles started Resolved Problems ProblemNoted DateDiagnosed DateResolved DateImmunosuppressed ivkfpt7508/14/2023 11/27/2023 Assessment & Plan (11/18/2023 12:39 PM EST): Infection prophylaxis VZV: Continue acyclovir 400 mg PO BID PJP: Continue trimethoprim-sulfamethoxazole 800-160 mg PO 3x weekly Hypogammaglobulinemia IVIG given 09/22/23 and 10/29/23 ([facility]) Assessment & Plan (08/17/2023 7:42 AM EDT): - VZV: Continue acyclovir 400 mg PO BID - PJP: Continue trimethoprim-sulfamethoxazole 800-160 mg PO 3x weekly Assessment & Plan (08/14/2023 10:20 AM EDT): - VZV: Continue acyclovir 400 mg PO BID - PJP: Continue trimethoprim-sulfamethoxazole 800-160 mg PO 3x weekly Multiple myeloma, remission status pdwoffvrkfc75Obesity, Class III, BMI 40-49.9 (morbid obesity)typical chest pain Vitamin D
--- OUTSIDE RECORDS SUMMARY | 2025-08-29 07:37 | XMS_ITS | Encounter Summary ---
Author Organization [facility] Address [address] [place] [address] Care Team Providers Care Promotor Group Ticket Sales Name Role Phone Vitaliy Thomson MD Unavailable [phone] Vitaliy Thomson MD Primary Care Provider [phone] Fabiola Palumbo NP Unavailable Letty Newsome TABLE MACHINE OPERATOR Unavailable [phone] Sima Paul RN Unavailable [phone] Power Swain DO Primary Care Provider [phone] Power Swain DO Primary Care Provider [phone] Encounter Details DateTypeDepartmentCare Team (Latest Contact Info)Nrfwllegxvt95/16/2024Clinisync Result Encounter [facility] External Department Unsolicited Provider, Generic External Data Social History Tobacco UseTypesPacks/DayYears UsedDateSmoking Tobacco: FormerCigarettes [...] on one occasion?Never06/15/2025PHQ-2AnswerDate Recorded Patient Health Questionnaire-2 Wpvrc416/14/2025CommentsNoSex and Gender InformationValueDate RecordedSex Assigned at BirthNot on fileLegal SexFemale 01/14/2023 6:38 PM EDTGender IdentityNot on fileSexual OrientationNot on file OccupationIndustryJob Start DateJob End DateRetiredNot on fileNot on fileNot on filedocumented as of this encounter Functional Status * AUDIT-C ScoreAnswerDate of FjujllpbyiIuwcgg456/14/2025 8:51 AM Negar Herrera LPN * QuestionAnswerDate [...] 8:51 AM Negar Herrera LPNPatient Health Questionnaire-2 Zwpsd455 8:51 AM Negar Herrera LPN documented as of this encounter Plan of Treatment DateTypeDepartmentCare Team (Latest Contact Info)Rlywnavwxmf95/10/2025 10:00 AM ESTOffice Visit [facility] [address] [place] [address] Power Swain DO [address] [place] [address] documented as of this encounter Procedures Procedure NamePriorityDate/TimeAssociated HxfumrqahTmiiqkolWEQ3675/16/2024 10:05 AM EDT documented in this encounter Results * ECG01 (07/18/2024 10:05 AM EDT)Anatomical RegionLateralityModalityOther Specimen (Source)Anatomical Location / LateralityCollection Method / Volume Collection TimeReceived Time07/18/2024 10:05 AM EDT Narrative 07/20/2024 10:23 PM EDT Ventricular Rate : 76 BPM Atrial Rate ?: 76 ?BPM P-R Interval ? : 166 ? ms QRS Duration ? : 78 ?ms Q-T Interval ? : 366 ? ms QTC Calculation(Bazett) ?: 411 ? ms Calculated P Mcdowell ?: 46 ?degrees Calculated R Mcdowell ?: 14 ?degrees Calculated T Mcdowell ?: 31 ?degrees NORMAL SINUS RHYTHM NORMAL ECG Confirmed by CRYSTAL MCKAY M.D. ([id number]) on 07/20/2024 10:23:07 PM NAME : MOJGAN PÉREZ PID : [id number] : 1955 ?? Gender : Female Race : ORD : ? Procedure Date : Jul 18 2024 10:05:50 Edit Date : Jul 20 2024 22:23:11 ? Diagnosis: NORMAL SINUS RHYTHM NORMAL ECG ? Confirmed by CRYSTAL MCKAY M.D. ([id number]) on 07/20/2024 10:23:07 PM ? Test Reason : ? Location : 192 : AVCRD ? Overread By : CRYSTAL MCKAY M.D. Edited By : CRYSTAL MCKAY M.D. Referred By : SELF, Acquired by : , Procedure Note Radiology, Radiologist, MD - 07/20/2024 Ventricular Rate : 76 BPM Atrial Rate : 76 BPM P-R Interval : 166 ms QRS Duration : 78 ms Q-T Interval : 366 ms QTC Calculation(Bazett) : 411 ms Calculated P Mcdowell : 46 degrees Calculated R Mcdowell : 14 degrees Calculated T Mcdowell : 31 degrees NORMAL SINUS RHYTHM NORMAL ECG Confirmed by CRYSTAL MCKAY M.D. ([id number]) on 07/20/2024 10:23:07 PM NAME : WILLIAM PÉREZH PID : [id number] : 1955 Gender : Female Race : [...] By : SELF, Acquired by : , Authorizing ProviderResult TypeResult StatusGeneric External Data Provider CLINISYNC IMAGINGFinal Result documented in this encounter Visit Diagnoses Not on filedocumented in this encounter Additional Health Concerns AssessmentNoted TimePHQ-9 Depression Total Score: 9:00 AM EST documented as of this encounter Care Teams Team MemberRelationshipSpecialtyStart DateEnd Date Vitaliy Thomson MD [address] [place] [address] PCP - ACO [facility]03/26/23 Vitaliy Thomson MD [address] [place] [address] PCP - [facility] Power Swain DO [address] [place] [address] PCP - [facility] Power Swain DO [address] [place] [address] PCP - [facility]04/25/25 Fabiola Palumbo NP [address] [place] [address] Nurse PractitionerFamily Medicine Letty Newsome NP [address] [place] [address] Nurse PractitionerPulmonary Disease Sima Paul, [place]ES [address] [place] [address] Registered NurseFamily Twghzbfb57/23/23documented as of this encounter
--- OUTSIDE RECORDS SUMMARY | 2025-08-29 07:37 | XMS_ITS | Encounter Summary ---
Author Organization [facility] Address [address] [place] [address] Care Team Providers Care Pneumatic Hoist Operator Name Role Phone Vitaliy Thomson MD Unavailable [phone] Sima Paul RN Unavailable [phone] Power Swain DO Primary Care Provider [phone] Encounter Details DateTypeDepartmentCare Team (Latest Contact Info)Wcwbyjpmxen27/27/2025Patient Outreach [facility] [address] [place] [address] Fanny Aponte LPN [address] [place] [address] Social History Tobacco UseTypesPacks/DayYears UsedDateSmoking Tobacco: FormerCigarettes [...] on one occasion?Never06/15/2025PHQ-2AnswerDate Recorded Patient Health Questionnaire-2 Wpblk293CommentsNoSex and Gender InformationValueDate RecordedSex Assigned at BirthNot on fileLegal SexFemale 01/14/2023 6:38 PM EDTGender IdentityNot on fileSexual OrientationNot on file OccupationIndustryJob Start DateJob End DateRetiredNot on fileNot on fileNot on filedocumented as of this encounter Progress Notes * Fanny Aponte LPN - 08/28/2025 2:23 PM EDT Images from the original note were not included. [place] clinisync shows that pt was admitted to [facility] - will await discharge. [facility] ER Note in chart. Flowsheet Row Patient Outreach from 08/28/2025 in [facility] with Fanny Aponte LPN Hospital Information ED, Hospital or Mcfp Facility Discharge? ED Patient has been contacted within 2 days of being seen in the ED No Diagnosis DX: COPD exacerbation, NO response to TX in ER (admitted to [facility]) Discharge Date 08/27/25 Discharged To: Admitted to another hospital [admitted to [facility]] Discharge Hospital [facility] Engagement Medications Discharge medications reviewed and reconciled from hospital? No Appointments Does the patient have a primary care provider? Yes Self Management Patient Teaching Wrap Up Wrap Up Additional Comments Pt had labs, EKG, CXR, documented in this encounter Plan of Treatment DateTypeDepartmentCare Team (Latest Contact Info)Nskgpqmgswo67/10/2025 10:00 AM ESTOffice Visit [facility] [address], [facility] [address] [place] [address] Power Swain DO [address] [place] [address] documented as of this encounter Visit Diagnoses Diagnosis Essential hypertension- Primary Unspecified essential hypertension Type 2 diabetes mellitus with other specified complication, without long-term current use of insulin (HCC) documented in this encounter Additional Health Concerns AssessmentNoted TimePHQ-9 Depression Total Score: 9:00 AM EST documented as of this encounter Care Teams Team MemberRelationshipSpecialtyStart DateEnd Date Vitaliy Thomson MD [address] [place] [address] PCP - [facility]CO [facility]03/26/23 Power Swain DO [address] [place] [address] [place] [address] PCP - GeneralFamily Medicine04/25/25 Sima Paul, LES [address] [place] [address] Registered NurseFamily Opbndqpj94/23/23documented as of this encounter
--- OUTSIDE RECORDS SUMMARY | 2025-08-29 07:37 | XMS_ITS | Encounter Summary ---
Author Organization [facility] Address [address] [place] [address] Care Team Providers Care Jig Fitter Name Role Phone Vitaliy Thomson MD Unavailable [phone] Sima Paul RN Unavailable [phone] Power Swain DO Primary Care Provider [phone] Encounter Details DateTypeDepartmentCare Team (Latest Contact Info)Ioxiwfvirrv11/27/2025Telephone [facility] [address] [facility] [address], [facility] [address] [place] [address] Power Swain DO [address] [facility] [address] [place] [address] Social History Tobacco UseTypesPacks/DayYears UsedDateSmoking Tobacco: FormerCigarettes [...] on one occasion?Never06/15/2025PHQ-2AnswerDate Recorded Patient Health Questionnaire-2 Tycrs326CommentsNoSex and Gender InformationValueDate RecordedSex Assigned at BirthNot on fileLegal SexFemale 01/14/2023 6:38 PM EDTGender IdentityNot on fileSexual OrientationNot on file OccupationIndustryJob Start DateJob End DateRetiredNot on fileNot on fileNot on filedocumented as of this encounter Miscellaneous Notes * Telephone Encounter - Yeni Brynn - 08/28/2025 2:55 PM EDT Patient called office Patient brianda documented in this encounter Plan of Treatment DateTypeDepartmentCare Team (Latest Contact Info)Cbglvjqvstz20/10/2025 10:00 AM ESTOffice Visit [facility] [place] [facility] [address], [address] [place] [address] Power Swain DO [address] [facility] [place] [address] [place] [address] documented as of this encounter Visit Diagnoses Not on filedocumented in this encounter Additional Health Concerns AssessmentNoted TimePHQ-9 Depression Total Score: 9:00 AM EST documented as of this encounter Care Teams Team MemberRelationshipSpecialtyStart DateEnd Date Vitaliy Thomson MD [address] [place] [address] PCP - [facility]03/26/23 Power Swain DO [address] [place] [address] PCP - GeneralFamily Medicine04/25/25 Sima Paul, LES [address] [place] [address] Registered NurseFamily Dkkilvvq69/23/23documented as of this encounter
--- OUTSIDE RECORDS SUMMARY | 2025-08-29 07:37 | XMS_ITS | Encounter Summary ---
Author Organization [facility] Address [address] [place] [address] Care Team Providers Care Stabilizer Operator Name Role Phone Vitaliy Thomson MD Unavailable [phone] Sima Paul RN Unavailable [phone] Power Swain DO Primary Care Provider [phone] Encounter Details DateTypeDepartmentCare Team (Latest Contact Info)Daxxnmrjjeh99/23/2025Telephone [facility] [address] [facility] [address], [facility] [address] [place] [address] Power Swain DO [address] [facility] [address] [place] [address] Social History Tobacco UseTypesPacks/DayYears UsedDateSmoking Tobacco: FormerCigarettes [...] on one occasion?Never06/15/2025PHQ-2AnswerDate Recorded Patient Health Questionnaire-2 Zyexr319CommentsNoSex and Gender InformationValueDate RecordedSex Assigned at BirthNot [...] Plan of Treatment DateTypeDepartmentCare Team (Latest Contact Info)Jvxljqpebwx61/10/2025 10:00 AM ESTOffice Visit [facility] [place] [facility] [address], [place] [address] [place] [address] Power Swain DO [address] [facility] [address] [place] [address] documented as of this encounter Visit Diagnoses Not on filedocumented in this encounter Additional Health Concerns AssessmentNoted TimePHQ-9 Depression Total Score: 9:00 AM EST documented as of this encounter Care Teams Team MemberRelationshipSpecialtyStart DateEnd Date Vitaliy Thomson MD [address] [place] [address] PCP - [facility]03/26/23 Power Swain DO [address] [facility] [address] [place] [address] PCP - GeneralFamily Medicine04/25/25 Sima Paul RN [address] [place] [address] Registered NurseFamily Zaamrmpu43/23/23documented as of this encounter
--- OUTSIDE RECORDS SUMMARY | 2025-08-29 07:37 | XMS_ITS | Encounter Summary ---
Author Organization [facility] Address [address] [place] [address] Care Team Providers Care Golf Ball Marker Name Role Phone Vitaliy Thomson MD Unavailable [phone] Sima Paul RN Unavailable [phone] Power Swain DO Primary Care Provider [phone] Encounter Details DateTypeDepartmentCare Team (Latest Contact Info)Bpmvlvjpdac83/20/2025Telephone [facility] [address] [place] [address] Polina Ferrari MA Social History Tobacco UseTypesPacks/DayYears [...] on one occasion?Never06/15/2025PHQ-2AnswerDate Recorded Patient Health Questionnaire-2 Qwhgk052CommentsNoSex and Gender InformationValueDate RecordedSex Assigned at BirthNot [...] encounter Miscellaneous Notes * Telephone Encounter - Powre Swain DO - 08/21/2025 7:39 PM EDT [...] Plan of Treatment DateTypeDepartmentCare Team (Latest Contact Info)Mtkbpxzcdbq02/10/2025 10:00 AM ESTOffice Visit [facility] [address] [place] [address] [place] [address] Power Swain DO [address] [place] [address] [place] [address] documented as of this encounter Visit Diagnoses Not on filedocumented in this encounter Additional Health Concerns AssessmentNoted TimePHQ-9 Depression Total Score: 001/ 9:00 AM EST documented as of this encounter Care Teams Team MemberRelationshipSpecialtyStart DateEnd Date Vitaliy Thomson MD [address] [place] [address] PCP - [facility]03/26/23 Power Swain DO [address] [address] PCP - GeneralFamily Medicine04/25/25 Sima Paul RN [address] [place] [address] Registered NurseFamily Gtithbyr54/23/23documented as of this encounter
--- OUTSIDE RECORDS SUMMARY | 2025-08-29 07:45 | XMS_ITS | CCD ---
Author Organization [facility] Care Team Providers Care Outreach Counselor Name Role Phone MD Yinka Lopez Primary Care Provider [phone] MD Fabiola Marinelli Attending Provider MD Fabiola Marinelli Referring Provider [phone] MD Yinka Lopez Primary Care Provider [phone] MD Fabiola aMrinelli Attending Provider MD Fabiola Marinelli Referring Provider KEITH Lima Attending Provider MD Yinka Lopez Primary Care Provider KEITH Lima Attending Provider MD Fabiola Marinelli Attending Provider [phone] MD Fabiola Marinelli Referring Provider MD Yinka Lopez Primary Care Provider KEITH Lima Attending Provider MD Fabiola Marinelli Attending Provider MD Fabiola Marinelli Referring Provider MD Fabiola Marinelli Attending Provider MD Fabiola Marinelli Referring Provider [phone] Yinka Lopez MD Primary Care Provider Barbara Lima A Unavailable MD Fabiola Marinelli Attending Provider MD Fabiola Marinelli Referring Provider [phone] BARBARA LIMA Admitting Unavailable KIEPERT, BARBARA Attending Unavailable KIEPERT, BARBARA Primary Care Unavailable WEST, DR PHYLLIS Webber Consulting Unavailable JANIE, BARBARA Consulting Unavailable MISC, DR BRANDT Admitting Unavailable MISC, DR BRANDT Attending Unavailable MISC, DR BRANDT Primary Care Unavailable MISC, DR BRANDT Consulting Unavailable ZIEBER, DR RISA Rangel Consulting Unavailable MD Yinka Lopez Primary Care Provider [phone] KEITH Lima Attending Provider [phone] MD Fabiola Marinelli Attending Provider MD Fabiola Marinelli Referring Provider MD Yinka Lopez Primary Care Provider MD Fabiola Marinelli Attending Provider MD Fabiola Marinelli Referring Provider MD Fabiola Marinelli Referring Provider MD Yinka Lopez Primary Care Provider MD Fabiola Marinelli Attending Provider [phone] MD Fabiola Marinelli Referring Provider Deepali, PARK MANAGER-C Fabiola Attending Provider Deepali, PAMELLA-C Fabiola Attending Provider MD Fabiola Marinelli Referring Provider [phone] MD Yinka Lopez Primary Care Provider MD Fabiola Marinelli Attending Provider Deepali, PARK MANAGER-C Fabiola Attending Provider MD Fabiola Marinelli Referring Provider MD Stefani Escobar Jr Emergency Provider DO Sherif Ravi Admit Provider DO Sherif Ravi Attending Provider DO Vicente Linton Attending Provider Katie Holder Unavailable MD Yinka Lopez Primary Care Provider MD Fabiola Marinelli Other Provider MD Fabiola Marinelli Attending Provider [phone] MD Yinka Lopez Primary Care Provider MARI Palumbo Attending Provider [phone] MD Stefani Escobar Jr Emergency Provider DO Sherif Ravi Admit Provider [phone] DO Vicetne Linton Attending Provider MD Fabiola Marinelli Other Provider MD Fabiola Marinelli Attending Provider MD Yinka Lopez Primary Care Provider MD Fabiola Marinelli Attending Provider MD Fabiola Marinelli Referring Provider MD Yinka Lopez Primary Care Provider [phone] MD Fabiola Marinelli Attending Provider MD Fabiola Marinelli Referring Provider [phone] MD Yinka Lopez Primary Care Provider MD Fabiola Marinelli Attending Provider MD Fabiola Marinelli Referring Provider [phone] DO Marlon Alba Emergency Provider [phone] Dr. Yinka Lopez Primary Care Unavailab le [...] Care Provider MD Fabiola Marinelli Attending Provider [phone] MD Fabiola Marinelli Referring Provider DO Marlon Alba Emergency Provider DO Juan Rivera Emergency Provider Maine SALDANA, Jessica Unavailable Unavailable [facility] Lisette Catracho Unavailable [phone] MD Yinka Lopez Primary Care Provider DO Juan Rivera Emergency Provider MD Fabiola Marinelli Attending Provider [phone] MD Fabiola Marinelli Referring Provider MD Yinka Lopez Primary Care Provider [phone] MD Fabiola Marinelli Attending Provider MD Fabiola Marinelli Referring Provider MARI Palumbo Attending Provider Juan Antonio JASSO PhD, Theresa Unavailable [phone] MD Yinka Lopez Primary Care Provider KEITH Gaytan Emergency Provider MD Yinka Lopez Primary Care Provider MARI Palumbo Attending Provider KEITH Gaytan Emergency Provider [phone] MD Fabiola Marinelli Attending Provider MD Fabiola Marinelli Referring Provider MD Fabiola Marinelli Attending Provider MD Fabiola Marinelli Referring Provider Mich JASSO PhD, [facility] Unavailable MD Berto Yinka Primary Care Provider [phone] MARI Palumbo Attending Provider MD Fabiola Marinelli Attending Provider MD Fabiola Marinelli Referring Provider [phone] MARI Perkins Attending Provider MD Yinka Lopez Primary Care Provider MD Fabiola Marinelli Attending Provider MD Fabiola Marinelli Referring Provider MD Berto [facility] Primary Care Provider MARI Perkins Attending Provider MD Fabiola Marinelli Attending Provider MD Fabiola Marinelli Referring Provider MD Ez Delgado Emergency Provider [phone] DO Vicente Linton Admit Provider DO Vicente Linton Attending Provider Yinka Lopez MD Leilani Primary Care Provider Barbara Lima APRN Unavailable MD Timur Valadez Other Provider MD Real Blacnas Other Provider [phone] KEITH De La Cruz Other Provider MD Stephanie Hardy Other Provider DO Garcia Sanchez Other Provider MD Lakeisha Miller Other Provider MD Hortensia Clinton Attending Provider MD Ez Delgado Emergency Provider MD Yinka Lopez Primary Care Provider [phone] DO Vicente iLnton Admit Provider [phone] MD Timur Valadez Other Provider Unavail able MD Real Blancas Other Provider [phone] KEITH De La Cruz Other Provider [phone] MD Stephanie Hardy Other Provider DO Garcia Sanchez Other Provider [phone] MD Lakeisha Miller Other Provider MD Hortensia Clinton Attending Provider MD Yinka Lopez Primary Care Provider MD Timur Valadez Other Provider Unavail able MD Fabiola Marinelli Attending Provider MD Fabiola Marinelli Referring Provider [phone] DO Loyd Raymundo Attending Provider [phone] MD Yinka Lopez Primary Care Provider KEITH Newsome Attending Provider [phone] Berto JASSO, Yinka Oconnor Unavailable Yinka Lopez MD Primary Care Provider Deepali PARK MANAGER, Fabiola Unavailable Mercedez PARK MANAGER, Letty R Unavailable Beverly RN, Sima Unavailable Deepali PARK MANAGER-C Fabiola Attending Provider Berto JASSO, Yinka Primary Care Provider [phone] Fabiola Marinelli MD Attending Provider [phone] Fabiola Marinelli MD Referring Provider Loyd Raymundo DO P Attending Provider Letty Newsome APRN Attending Provider Deepali CAN-C, Fabiola Attending Provider Berto JASSO, Yinka Primary Care Provider [phone] Fabiola Marinelli MD Attending Provider Fabiola Marinelli MD Referring Provider [phone] Garcia Sanchez DO Attending Provider Berto JASSO, Yinka Primary Care Provider Fabiola Marinelli MD Attending Provider [phone] Fabiola Marinelli MD Referring Provider VAN [...] YVES, FABIOLA M Primary Care Unavailable LISETTE PERIKNS Attending Unavailable YVES, FABIOLA M Primary Care [...] Unavailable Berto JASSO, Yinka Primary Care Provider [phone] Garcia Sanchez DO Attending Provider Fabiola Marinelli MD Attending Provider Yves JASSO, Fabiola Referring Provider Marlon Alba DO Emergency Provider [phone] Fabiola Marinelli MD Attending Provider Fabiola Marinelli MD Referring Provider Azar Harris MD PhD, Supa Unavailable Jessica Grove RN Unavailable Unavailable Yves JASSO, Fabiola Flower Primary Care Provider Gregorio FIBRE TECHNOLOGIST-BINDERY MACHINE SETTER, Lisette Hayden Unavailable [phone] Juan Antonio JASSO PhD, Theresa Flower Unavailable Mich JASSO PhD, [facility] Unavailable Berto JASSO, Yinka Primary Care Provider Marlon Alba DO Emergency Provider Fabiola Marinelli MD Attending Provider [phone] Fabiola Marinelli MD Referring Provider Katie Holder APRN Attending Provider Fabiola Marinelli MD Attending Provider Yves JASSO, Fabiola Referring Provider [phone] Beverly SALDANA, Sima Unavailable [phone] Emely Pedersen DO Primary Care Provider Berto JASSO, Yinka Primary Care Provider Yves JASSO, Fabiola Attending Provider Katie Holder APRN Attending Provider Katie Holder APRN Other Provider Yves JASSO, Fabiola Referring Provider Emely Pedersen DO Attending Provider Yves JASSO, Fabiola Referring Provider Garcia Sanchez DO Attending Provider [phone] Emely Pedersen DO Primary Care Provider Fabiola Marinelli MD Referring Provider [phone] EMELY PEDERSEN Primary Care Physician Berto JASSO, Yinka Primary Care Provider Fabiola Marinelli MD Attending Provider Fabiola Marinelli MD Referring Provider LYGARCIA Referring Unavailable Marlon VALENZUELA Attending Unavailable GARCIA SANCHEZ Referring Unavailable Marlon VALENZUELA Attending Unavailable Marlon VALENZUELA Admitting Unavailable Marlon VALENZUELA Attending Unavailable Fabiola Marinelli MD Referring Provider [phone] Gregorio PARKER-Lisette CASTANEDA Unavailable [phone] Mich JASSO PhD, [facility] Unavailable Emely Pedersen DO Primary Care Provider RAMAN [...] Referring Provider Marlon Alba DO Emergency Provider [phone] Berto JASSO, Yinka Primary Care Provider [phone] Katie Holder APRN Attending Provider Katie Holder APRN Other Provider [phone] Fabiola Marinelli MD Attending Provider [phone] Fabiola Marinelli MD Referring Provider Yves JASSO, Fabiola Referring Provider Berto JASSO, Yinka Primary Care Provider Katie Holder APRN Attending Provider Fabiola Marinelli MD Referring Provider [phone] Katie Holder Attending Unavailable Lopez, Yinka Primary Care Unavailable GalloTruman truongine M Admitting Unavailable aGlloTruman truongine M Attending Unavailable Truman Holderine M Admitting Unavailable Lopez, Yinka Primary Care Unavailable Katie Holder Attending Unavailable GalloTruman truongine M Admitting Unavailable Nuvia, Emely L Primary Care Unavailable GalloTrumanKatie M Attending Unavailable Gallo, Katie M Admitting [...] Primary Care Unavailable Yves, Fabiola Attending Unavailable Yves, Fabiola Referring Unavailable Yves, Fabiola Admitting Unavailable [...] EMELY Attending Unavailable SHEILA PILLAI Attending Unavailable LANO, LETTY Rangel Referring Unavailable NUVIA, EMELY Attending Unavailable NUVIA, EMELY Attending Unavailable LOPEZ, YINKA Oconnor Attending Unavailable WARCHOL, FABIOLA Attending Unavailable NUVIA, EMELY Attending Unavailable NUVIA, EMELY Attending Unavailable NUVIA, EMELY Attending Unavailable JOAQUINA GREER Attending Unavailable Lopez Yinka JASSO Primary Care Provider Deepali PARK MANAGER, Fabiola Unavailable Mercedez PARK MANAGER, Letty Rangel Unavailable Emely Pedersen DO Primary Care Provider Allergies Allergy ClassificationReported Allergen(s)Allergy TypeDate of OnsetReaction(s) Facility (20 sources)Latex; Translations: [LATEX]Allergy to tiiixtcyh12-19-7319Kelez: See Comments, Hives, Rash, [facility]Fire[facility] ([facility] sources)moxifloxacin; Translations: [MOXIFLOXACIN]Drug Bhksswy27-07-3107 Hives, Rash, Unknown, Unknown (qualifier value)[facility] (20 sources)Quinolones (Antibiotic); Translations: [Quinolones]Allergy to icpumtqam58-82-7330[facility]iDhljiurepNor[facility] (20 sources)Tetracycline; Translations: [tetracycline]Drug Ugixgfd36-80-0569 Other: See Comments, Unknown, Hives, [facility] (20 sources)erythromycin base; Translations: [Erythromycin Base]Allergy to -02-0392JtfwgHirrdsadaNorwalk Memorial Hospital (20 sources)Adhesive agent; Translations: [ADHESIVE]Drug Ilihsmf62-94-9956Thqra: See Comments, [facility] (20 sources)Amoxicillin; Translations: [AMOXICILLIN]Drug Kkpvhbr23-02-1437 Swelling, [facility] Work Phone: (20 sources)Diclofenac; Translations: [DICLOFENAC SODIUM]Drug Ebkeupu29-24-6918 [facility] (20 sources)Doxycycline; Translations: [doxycycline]Drug Cppzfdp40-07-5761 Unknown, hives, Swelling, Unknown (qualifier value)[facility] (6 sources)Doxycycline; Translations: [DOXYCYCLINE CALCIUM]Drug Allergy 98-14-0767ApcucnbmXgmusnbuc Clinic Work Phone: (20 sources)Erythromycin; Translations: [ERYTHROMYCIN]Drug Aspzaaj21-26-2321 [facility] (6 sources)Platelets; Translations: [PLATELETS]Propensity to adverse reactions to rzkv08-27-5688Powwl: See [facility] Work Phone: (1 source)Adhesive agentDrug allergy (disorder)12-01-5913Dqp [facility] Repository (9 sources)Diclofenac; Translations: [Voltaren]Drug Olhptxc42-78-5368iqyvwVfcMercy Health [facility]. [facility] Repository (3 sources)Doxycycline; Translations: [Vibramycin]Drug Nmfweph86-70-2872KnzMi[facility] (3 sources)moxifloxacin; Translations: [Avelox]Drug Rbmxvva99-08-4447XakMiami Valley Hospital Rep[facility] (20 sources)Diclofenac; Translations: [DICLOFENAC]Drug Zpdlagk99-58-6398mwhek, Unknown, Unknown (qualifier value)[facility] (20 sources)Tetracycline (class of antibiotic); Translations: [TETRACYCLINES] Propensity to adverse -26-6578StrejUniversity [facility]als [facility] Work Phone: (20 sources)Antazoline; Translations: [ANTAZOLINE]Drug Ylrcmnm05-96-4750Hhcajqz, [facility]chingChillicothe [facility] Work Phone: (20 sources)OtherPropensity to adverse yjtbvymcr89-94-7926HnnoomxsmWQAP Healthcare (20 sources)Wound Dressing AdhesiveDrug Jvbzzda48-27-1466EqrzyevTRIK Healthcare (2 sources)Adhesive agentDrug Kgmswho04-56-3981EhhusHibqyuqwrqVan Wert County Hospital (2 sources)TetracyclinesPropensity to adverse rgnruellh49-26-4529Eyaai, [facility] Work Phone: (1 source)DiclofenacDrug Fitynxl51-48-1152XhbervgtnChildren[facility] Repository (1 source)DoxycyclineDrug Qrpvtfc77-37-2101ZstormqmbChildren'S Hospital For Rehabilitation Repository Medications Current Medications MedicationDrug Class(es)DatesSig (Normalized)Sig (Original)0.25 MG, 0.5 MG Dose 3 ML semaglutide 0.68 MG/ML Pen Injector (1 source)Start: 01-42-1566iialiyrjgkbtf 325 mg / oxyCODONE hydrochloride 10 mg oral tablet (5 sources)Opioid AgonistStart: 80-27-5603mmhz 1 tablet by mouth every four hours as neededOXYCODONE-ACETAMINOPHEN 10-325 mg tablet Take 1 tablet by mouth every 4 hours as needed. 05/07/2013ctiveComment on above:Take 1 tablet by mouth every 4 hours as needed.albuterol 0.83 mg/ml inhalation solution (20 sources)beta2-Adrenergic AgonistStart: 08-04-2025 End: 86-53-1328njkdnymbc (2.5 MG/3ML) 0.083% nebulizer solution Indications: Chronic obstructive pulmonary disease, unspecified COPD type (HCC) Take 3 mL (2.5 mg) by nebulization every 6 (six) hours if needed for wheezing 75 mL 2 08/04/2025 11/02/2025 ActiveStart: 52.5 mg, nebulization, Once as needed, wheezing, Starting on Thu06/22/25 at 0847, For 1 dose, Recovery (only) Start: 01-17-2025 End: 70-18-4480zsjfkycas (2.5 MG/3ML) 0.083% nebulizer solution Indications: Chronic obstructive pulmonary disease, unspecified COPD type (HCC) Take 3 mL (2.5 mg) by nebulization every 6 (six) hours if needed for wheezing 75 mL 2 03/01/2025 ActiveStart: 03-21-2024 End: 95-27-8788Ihwod: 03-21-2024 End: 95-12-0615xvdkosert (2.5 MG/3ML) 0.083% nebulizer solution Indications: Chronic obstructive pulmonary disease, unspecified COPD type (CMS/HCC) Take 3 mL (2.5 mg) by nebulization every 6 (six) hours if needed for wheezing 75 mL 2 05/23/2024 ActiveStart: 85-07-8791wuszajqcj 2.5 mg /3 mL (0.083 %) nebulizer solution 3 mLStart: 59-79-5937npeg 2.5 mg by inhalation every four hours as needed2.5 mg, nebulization, Every 4 hours PRN, shortness of breath, wheezing, Starting on Thu08/04/23 at 0035Start: 19-02-9158utzq 2 puff(s) by inhalation every four hours for wheezingalbuterol 90 mcg/actuation inhaler Inhale 2 puffs every 4 hours if needed for shortness of breath or wheezing. 07/14/2023 Active Start: 38-06-7767cqvx 2 puff(s) by inhalation every six hours for wheezing2 puff, inhalation, Every 6 hours PRN, shortness of breath, wheezing, Starting on Thu11/18/23 at 1423 Shake well before use.Start: 73-92-6581Uswqv: 12-02-2022 End: mL, nebulization, As needed, For respiratory rate GREATER THAN OR EQUAL TO 28 breaths/minute and/or wheezing., Starting on Thu08/04/23 at 0959, For 1 doseStart: 22-24-7310tdxtoqskc 0.083% Inh [place] 3 mL 2.5 mg, 3 mL, NEB, As Directed Start Date: 12/25/20 Status: Ordered Repeat number: 1Start: 11-24-2017 ALBUTEROL INHALATION Inhale as instructed. 11/24/2017 ActiveStart: 11-24-2017 ALBUTEROL INHALATION Inhale as instructed. 0 11/24/2017 ActiveStart: 11-24-2017 End: 25-24-3629Zsnot: 11-24-2017 End: 75-20-4112lwlc 1 puff(s) by inhalation every four to six hoursAlbuterol Sulfate (Proair Hfa) 90 mcg/actuation Hfa Aerosol Inhaler Discontinued 1 PUFF INHALATION EVERY 4-6 HOURS November 24, 2017 1:00am April 18, 2019 11:58am Start: 26-09-8416zsku 1 puff(s) by inhalation every four hoursAlbuterol Sulfate Active 2 PUFF INHALATION Q4H November 24, 2017 1:00amStart: 25-21-2371uggh 1 puff(s) by inhalation every six hoursAlbuterol Sulfate Active 2 PUFF INHALATION Q6H November 24, 2017 12:00amStart: 73-64-6729rhlo 1 puff(s) by inhalation every six hoursAlbuterol [...] for 17 ActiveComment on above:Inhale as instructed. albuterol 0.833 mg/ml / ipratropium bromide 0.167 mg/ml inhalation solution (1 source)Anticholinergic, beta2-Adrenergic AgonistStart: 08-28-2025 End: 97-95-4731qcrjswcejoj-albuterol (Duo-Neb) 0.5-2.5 mg/3 mL nebulizer solution Indications: COPD with acute exacerbation (HCC) Take 3 mL by nebulization every 6 (six) hours 1080 mL 08/28/2025 11/26/2025 Activealteplase (Cathflo Activase) injection 2 mg (1 source)Start: mg, intra-catheter, As needed, line care, Starting on Thu11/18/23 at 1423 Central line port. Dilute each 2 mg vial with 2.2 mL sterile water to give 1 mg/mL final concentration. Swirl gently to mix; do not shake.atorvastatin 40 mg oral tablet (20 sources)HMG-CoA Reductase InhibitorStart: 04-25-2024 End: 94-65-4225tkgx 1 tablet by mouth once dailyatorvastatin (Lipitor) 40 MG tablet Indications: Hyperchylomicronemia Take 1 tablet (40 mg) by mouth Daily 90 tablet 1 06/12/2025 12/09/2025 ActiveStart: 01-28-2023 End: 57-77-5209Idyih: 04-27-2019 End: 52-54-7410rbru 1 tablet by mouth once dailyatorvastatin (Lipitor) 80 mg tablet Take 1 tablet (80 mg) by mouth once daily. 06/07/2023 ActiveComment on above:Take 1 tablet by mouth daily at bedtime.azithromycin 250 mg oral tablet (20 sources)Macrolide AntimicrobialStart: 04-10-2025 End: 91-26-5255hauzpoiboaam (Zithromax Z-Emiliano) 250 MG tablet Indications: COPD with acute exacerbation (HCC) Take as directed 6 tablet 04/10/2025 05/15/2025 Discontinued (Therapy completed)Start: 12-01-2024 End: 13-51-6357taxecwrrkmpr (Zithromax) 250 MG tablet Indications: Upper respiratory tract infection, unspecified type Take two tablets on day 1, and one tablet on days 2-5 6 tablet 12/01/2024 12/20/2024 Discontinued (Therapy completed)Start: 07-19-2024 End: 98-87-0558mvagvswonlkw (Zithromax) 250 MG tablet Indications: Upper respiratory tract infection, unspecified type Take two tablets on day 1, and one tablet on days 2-5 6 tablet 07/19/2024 08/23/2024 Discontinued (Therapy completed)Start: 01-26-2023 End: 41-70-9886Ebfjr: 01-26-2023 End: 69-66-6734Jqlrp: 11-26-2020 End: 63-83-7317Wfdpm: 11-26-2020 End: 66-07-8912qdtnbbmhgao 200 mg oral capsule (4 sources)Non-narcotic AntitussiveStart: 04-10-2025 End: 70-83-3357anvi 1 capsule by mouth three times daily as needed for cough benzonatate (Tessalon) 200 MG capsule Indications: Cough, unspecified type Take 1 capsule (200 mg) by mouth 3 (three) times a day as needed for cough for up to 7 days Do not crush or chew. 21 pkaoyyf7104/10/2025 04/17/2025 Mfxkih256 actuat budesonide 0.16 mg/actuat / formoterol fumarate 0.0048 mg/actuat / glycopyrrolate 0.009 mg/actuat metered dose inhaler (20 sources)Corticosteroid, beta2-Adrenergic AgonistStart: 06-28-2024 End: 32-03-5949Ecsgs: 90-47-9353Ocnhejlmde-Glycopyr-Formoterol (Breztri Aerosphere) 160-9-4.8 mcg/actuation HFA aerosol inhaler Active 2 INH INHALATION Twice daily June 28, 2024 12:00amStart: 03-24-2024 End: 10-26-5920Fjntu: 03-24-2024 End: 91-53-8771Nhzknlvmir-Glycopyr-Formoterol (Breztri Aerosphere) 160-9-4.8 mcg/actuation HFA aerosol inhaler Discontinued 2 INH INHALATION Twice daily 10.7 30 April 06, 2024 10:59am April 10, 2024 6:02pmtake 2 puff(s) by inhalation in the wggsokmSipdfrb-Clownhztahq-Rzppivbeqd (Breztri Aerosphere) 160-9-4.8 MCG/ACT aerosol Inhale 2 puffs in themorning and 2 puffs before bedtime. Activetake 2 puff(s) by inhalation twice varjesfdzcfxpgl-gpjhzlts-orothejhwt (Breztri Aerosphere) 160-9-4.8 mcg/actuation HFA aerosol inhaler Inhale 2 puffs 2 times a day. Activecalcium chloride 0.0014 meq/ml / potassium chloride 0.004 meq/ml / sodium chloride 0.103 meq/ml / sodium lactate 0.028 meq/ml injectable solution (1 source)Start: 01-05-2025 End: 04-38-6680qwey 100 mL intravenously every lnso713 mL/hr, intravenous, Continuous, Starting on Mela 01/05/25 at 1000, For 1 day, Recovery (only)carvedilol 12.5 mg oral tablet (20 sources)alpha-Adrenergic Arnoldo, beta-Adrenergic BlockerStart: 11-20-2017 End: 49-82-1584gmwp 1 tablet by mouth in the morningcarvedilol [...] daily with meals.cefdinir 300 mg oral capsule (20 sources)Cephalosporin AntibacterialStart: 98-89-0292uatx 1 capsule by mouth twice daily, then take 1 capsule by mouth once dailycefdinir (Omnicef) 300 MG capsule TAKE 1 CAPSULE BY MOUTH TWICE A DAY FOR 1 WEEK THEN 1 CAPSULE ONCE A DAY FOR 2 MONTHS 07/11/2025 ActiveStart: 02-01-2025 End: 39-56-1682yrbh 1 capsule by mouth in the morningcefdinir (Omnicef) 300 MG capsule Indications: Bronchitis Take 1 capsule (300 mg) by mouth in the morning and 1 capsule (300 mg) before bedtime. Do all this for 10 days. 20 capsule 02/01/2025 02/11/2025 ActiveStart: 01-17-2025 End: 98-37-9714hkru 1 capsule by mouth in the morningcefdinir (Omnicef) 300 MG capsule Indications: COPD with acute exacerbation (CMS/HCC) Take 1 capsule (300 mg) by mouth in the morning and 1 capsule (300 mg) before bedtime. Do all this for 7 days. 14capsule 01/17/2025 01/24/2025 ActiveStart: 02-01-2024 End: 23-38-4766dvan 1 capsule by mouth twice dailycefdinir (Omnicef) 300 mg capsule Indications: Cough, unspecified type Take 1 capsule (300 mg) by mouth 2 times a day for 10 days. 20 capsule 02/01/2024 02/11/2024 Expiredcephalexin 500 mg oral capsule (20 sources)Cephalosporin AntibacterialStart: 32-68-5493tnow 1 capsule by mouth once dailyKeflex 500 mg Cap 500 mg = 1 cap(s), Oral, Daily, take one day before procedure and take one day after procedure, # 2 cap(s), Refills(s) 0, Pharmacy: [facility]/pharmacy #[id number], 160, cm, 06/12/25 10:05:00 EDT, Height/Length Dosing, 89.9, kg, 06/12/25 10:05:00 EDT, Weight Dosing Start Date: 06/12/25 Status: Ordered Quantity: 2.0 Unit: cap(s) Repeat number: 1Start: 01-29-2023 End: 24-81-2408Adgin: 01-29-2023 End: 41-33-6474Zxmxi: 11-27-2020 End: 84-95-0867Auonm: 11-27-2020 End: 68-79-6912pjvtkgmnmg hydrochloride 10 mg oral tablet (20 sources)Histamine-1 Receptor AntagonistStart: 09-22-2024 End: 66-03-5297tthj 1 tablet by mouth at bedtimecetirizine (ZyrTEC) 10 MG tablet Indications: Seasonal allergic rhinitis due to pollen Take 1 tablet (10 mg) by mouth at bedtime 90 tablet 3 11/16/2024 11/16/2025 ActiveStart: 08-03-2738Zemce: 05-30-2024 End: 74-15-3965uolx 1 tablet by mouth at bedtimecetirizine (ZyrTEC) 10 MG tablet Indications: Seasonal allergic rhinitis due to pollen Take 1 tablet (10 mg) by mouth at bedtime 30 tablet 1 05/30/2024 Activecholecalciferol 0.125 mg oral capsule (20 sources)Vitamin DStart: 51-99-8891Kvoog: 02-27-2023 End: 66-41-0865qoxf 1 capsule by mouth once dailycholecalciferol (Vitamin D-3) 125 MCG (5000 UT) capsule TAKE 1 CAPSULE BY MOUTH EVERY DAY FOR 90 DAYS 02/27/2023 ActiveStart: 09-04-2022 End: 00-18-4487gqnx 1 capsule by mouth once dailyCholecalciferol, Vitamin D3, 125 mcg (5,000 unit) cap TAKE 1 CAPSULE BY MOUTH EVERY DAY FOR 90 DAYS09/04/2022 ActiveStart: 04-13-2019 End: 16-58-0239Zovtb: 09-15-2018 End: 26-77-6769Bvzteca D3 125 MCG (5000 UT) as directed Orally 2 capsules 4 days a week, 3 capsules 3 days a week.Not-Taking/PRNComment on above:TAKE 1 CAPSULE BY MOUTH EVERY DAY FOR 90 DAYSdextromethorphan hydrobromide 3 mg/ml / promethazine hydrochloride 1.25 mg/ml oral solution (4 sources)Phenothiazine, Uncompetitive D-wlspnp-L-aspartate Receptor Antagonist, Sigma-1 AgonistStart: 06-20-2024 End: 09-97-9076vkgwopphjldb-dextromethorphan (Phenergan-DM) 6.25-15 MG/5ML syrup Indications: Viral upper respiratory tract infection Take 5 mL by mouth every 4 (four) hours if needed for cough for up to 7 days 118mL 06/20/2024 06/27/2024 Activedocusate sodium 50 mg / sennosides, care home 8.6 mg oral tablet (1 source)Start: 55-34-9677ynff 2 tablets by mouth once daily as needed for constipation2 tablet, oral, Nightly PRN, constipation, first line, Starting on Thu11/18/23 at 1423 Bowel Regimen - for prevention of constipation Hold for loose jadnabcoo129999 0.3 ml EPINEPHrine 1 mg/ml auto-injector (20 sources)alpha-Adrenergic Agonist, beta-Adrenergic Agonist, Catecholamine Start: 00-45-5115Xntcb: 01-96-4113vvnaph 0.3 mg by intramuscular injection once Epinephrine Active 0.3 MG IM Once April 10, 2024 12:00amStart: 02-22-2024 EPINEPHrine (Epipen) 0.3 MG/0.3ML injection syringe Indications: History of allergic drug reaction Inject 0.3 mL (0.3 mg) as directed 1 (one) time for 1 dose use as directed for allergic reaction andthen call 911 0.3 mL 1 02/22/2024 ActiveStart: 85-93-9896ITIIBXQgiww 0.3 mg/0.3 mL injection syringe 02/22/2024 ActiveStart: 35-95-9576DIXHHVMroez HCl (PF) (Adrenalin) injection 0.3 mgStart: .3 [...] oral tablet (20 sources)Azole AntifungalStart: 03-29-2025 End: 76-24-6236yshyaqjulif (Diflucan) 150 MG tablet Indications: Recurrent candidiasis of vagina Take 1 tablet (150 mg) by mouth Daily for 3 days Take one tablet then another tablet 72 hours later if symptoms do not resolve 1 tablet 1 03/29/2025 04/01/2025 ActiveStart: 08-20-2023 End: 78-33-7892sveo 2 tablets by mouth once dailyfluconazole (Diflucan) 100 mg tablet Indications: Multiple myeloma not having achieved remission (CMS/HCC) Take 2 tablets (200 mg) by mouth once daily. 60 tablet 0 08/20/2023 09/08/2023 Discontinued (Med List Cleanup)Start: 12-26-2022 End: 25-15-2074Dvrre: 12-26-2022 End: 25-18-7885unnk 1 tablet by mouth once dailyFluconazole (Diflucan) 100 mg Tablet Discontinued 100 MG PO Daily December 26, 2022 11:01am January 28, 2023 8:28amfluticasone propionate 0.05 mg/actuat metered dose nasal spray (20 sources)CorticosteroidStart: 13-97-4700khup 1 spray(s) nasal route once dailyfluticasone (Flonase) 50 MCG/ACT nasal spray Indications: Seasonal allergic rhinitis due to pollen ADMINISTER 1 SPRAY INTO EACH NOSTRIL 1 TIME EACH DAY AT THE SAME TIME 16 mL 2 07/18/2025 ActiveStart: 03-01-2025 End: 29-11-3460nciy 2 spray(s) nasal route in the morningfluticasone [...] clean tip and replace cap.Start: 01-28-2023 End: 83-21-0623Tlnxw: 37-43-8934ckfk 1 spray(s) nasal route once daily Fluticasone Propionate Active 1 SPRAY INTRANASAL Daily January 28, 2023 12:00am administer into each nostrilStart: 75-34-7563skzmhceujoj propionate 50 mcg, Inhalation Start Date: 12/25/20 Status: Ordered Repeat number: 1take 1 spray(s) nasal route once dailyFluticasone Propionate 50 MCG/ACT 1 spray in each nostril Nasally Once a day Activetake 1 spray(s) nasal route once dailyFluticasone Propionate 50 MCG/ACT 1 spray in each nostril Nasally Once a day Active fluticasone / salmeterol (20 sources)Corticosteroid, beta2-Adrenergic AgonistStart: 26-84-7872Arroho 250 mcg-50 mcg Powder Inhalation, BID Start Date: 12/25/20 Status: Ordered Repeat number: 1Start: 11-24-2017 End: 58-93-1652Ktspjgapjsl Propion-Salmeterol (Advair Diskus) 250-50 mcg/dose Blister With Device Discontinued 1 INH INHALATION Q12H November 24, 2017 12:00am January 28, 2023 7:28amStart: 11-24-2017 End: 50-68-2399Dkjqy: 11-24-2017 End: 40-60-0341Zcqcvunmyrx Propion-Salmeterol (Advair Diskus) 250-50 mcg/dose Blister With Device Discontinued 1 INH INHALATION Q12H November 24, 2017 1:00am January 28, 2023 8:28amStart: 21-60-9914Gvgplcoylcu Propion-Salmeterol (Advair Diskus) 250-50 mcg/dose Blister With Device Active 1 INH INHALATION Q12H November 24, 2017 12:00amStart: 06-55-8268Jyirx: 61-28-4403Mtrnjgisxwd Propion- Salmeterol (Advair Diskus) 250-50 mcg/dose Blister With Device Active 1 INH INHA LATION Q12H November 24, 2017 1:00amStart: 82-75-3407NHSYGY DISKUS 250-50 mcg/dose DsDv Inhale 1 Puff as instructed as needed. 05/02/2013 ActiveComment on above:Inhale 1 Puff as instructed as needed. fosfomycin 3000 mg powder for oral solution (20 sources)Start: 11-99-0253qpkxhngkfe (Monurol) 3 g packet MIX 1 PACKET INTO LIQUID AND TAKE BY MOUTH ONCE EVERY 5 DAYS 06/02/2025 ActiveStart: 06-02-2025 End: 87-96-2817qampcpxqsr 20 mg oral tablet (20 sources)Loop DiureticStart: 04-19-2024 End: 86-75-8118urug 1 tablet by mouth once dailyfurosemide (Lasix) 20 MG tablet Indications: Essential hypertension Take 1 tablet (20 mg) by mouth Daily 90 tablet 3 12/14/2024 12/09/2025 Activeglucagon (rdna) 1 mg injection (2 sources)Antihypoglycemic AgentStart: 79-72-0623znkewxyg (Glucagen) injection 1 mgStart: mg, intramuscular, Every [...] ml glucose 50 mg/ml injection (6 sources)Start: 94-22-1745vtiygolq 5 % in water (D5W) bolusStart: 11-18-2023 dextrose 50 % injection 25 gStart: 69-22-0076loqzavad 10 % in water (D10W) infusionStart: mL, intravenous, at 1,000 mL/hr, Administer over [...] guaiFENesin 600 mg extended release oral tablet (5 sources)Start: 08-22-2025 End: 93-92-7472wabx 1 tablet by mouth in the morning, [...] 08/22/2025 09/05/2025 Activeheparin (4 sources)Unfractionated Heparin, Anti-coagulantStart: 07-95-6788360 Units (5 mL), intra-catheter, As needed, line care, Starting on Thu01/05/25 at 1322Start: 11-25-2023 End: 80-02-1867egdcnap flush 100 unit/mL syringe 500 UnitsStart: 57-16-9836563 Units, intra-catheter, As needed, line care, Starting on Mela 08/13/23 at 1217 Start: 08-13-2023 End: 79-80-4464114 Units (5 mL), intravenous, As needed, line care, Starting on Thu08/13/23 at 1209hydrocortisone 25 mg/ml rectal cream (20 sources)CorticosteroidStart: 19-79-7386hcclwkxeedjssz (Anusol-HC) 2.5 % rectal cream APPLY RECTALLY 2 TO 4 TIMES PER DAY NEEDED FOR HEMORRHOIDS 11/16/2024 ActiveStart: 16-42-9004lqevngwjsnqwwh (Anusol-HC) 2.5 % rectal cream APPLY RECTALLY 2 TO 4 TIMES PER DAY NEEDED FOR HEMORRHOIDS 11/16/2024 Active Start: 43-46-4797Cixhhznprhtxhd-Pramoxine (12 sources)CorticosteroidStart: 60-34-2386Auxbvyn Detemir 100 UNIT/ML (13 sources)Insulin Detemir 100 UNIT/ML as directed Subcutaneous Activeinsulin lispro 100 unt/ml injectable solution (2 sources)Insulin AnalogStart: 75-09-1079cqvhtqa lispro (HumaLOG) injection 0-5 UnitsStart: -10 Units, [...] mg oral tablet (20 sources)Start: 01-24-2025 End: 37-95-9383Manuz: 12-29-2024 End: 95-09-4806yyul 1 tablet by mouth once dailymagnesium oxide (Mag-Ox) 400 (240 Mg) MG tablet Take 400 mg by mouth Daily 12/29/2024 ActiveStart: 04-19-2024 End: 57-02-5233frzdlcvhk 1 mg oral tablet (20 sources)Start: 41-47-2258dlic 2 tablets by mouth once daily at bedtime melatonin 1 mg tablet Take 2 tablets (2 mg) by mouth once daily at bedtime. Jfypte16 hr metFORMIN hydrochloride 500 mg extended release oral tablet (20 sources)BiguanideStart: 88-09-0368fphe 500 mg by mouth twice dailymetformin 500 mg, Oral, BID Start Date: 12/25/20 Status: Ordered Repeat number: 1Start: 03-05-2020 End: 03-30-8570btrv 1 tablet by mouth once dailymetFORMIN XR (Glucophage-XR) 500 MG 24 hr tablet Indications: Diabetes mellitus without complication (HCC) Take 1 tablet (500 mg) by mouth Daily 90 tablet 06/07/2025 09/05/2025 ActiveStart: 03-05-2020 End: 21-59-7988sxqs 500 mg by mouth twice dailyMetformin Discontinued 500 MG PO Twice daily March 05, 2020 12:00am April 19, 2024 1:14pmtake 1 tablet by mouth oncemetFORMIN (Glucophage) 500 mg tablet Take 1 tablet (500 mg) by mouth 1 time. ActiveComment on above:TAKE 1 TABLET BY MOUTH TWICE A DAY WITH A MEAL methylPREDNISolone 40 mg injection (2 sources)CorticosteroidStart: 35-64-6128nkzaqeJZVZIKQtcopw sod succinate (PF) (SOLU-Medrol) 40 mg/mL injection 40 mgStart: 89-93-482108 mg, intravenous, As needed, Give second for moderate or severe hypersensitivity reaction, Starting on Thu08/04/23 at 0959, For 1 doseMiraLax 17 GM/SCOOP (4 sources)MiraLax 17 GM/SCOOP as directed Orally Activemorphine sulfate 15 mg extended release oral tablet (20 sources)Opioid AgonistStart: 22-27-4675clbp 1 tablet by mouth in the morning, then take 1 tablet by mouth every twelve hours at bedtimemorphine CR (MS Contin) 15 MG 12 hr tablet Take 15 mg by mouth in the morning and 15 mg before bedtime. 07/19/2025 ActiveStart: 06-15-2025 End: 76-73-7128Jowij: 05-28-2025 End: 05-64-8114Pldhi: 05-26-2025 End: 52-50-1129Etuve: 05-18-2025 End: 96-62-9279yiofbtvm hydrochloride 40 mg/ml nasal spray (20 sources)Opioid AntagonistStart: 14-42-1354Ovbjf: 74-48-5021Loljlasa Active 1 SPRAY INTRANASAL every 2 to 3 minutes March 21, 2024 12:00am spray 1 dose into ONE nostril; alternate nostrils w each dose until help arrivesStart: 02-01-2024 naloxone (Narcan) 4 mg/0.1 mL nasal spray Administer 4 mg into affected nostril(s) 02/01/2024 ActiveStart: 28-93-0162kkxvmcar (Narcan) 4 mg/0.1 mL nasal spray Indications: Cough, unspecified type , Other chronic painAdminister 1 spray (4 mg) into affected nostril(s) if needed for opioid reversal. May repeat every 2-3 minutes if needed, alternating nostrils, until medical assistance becomes available. 2 each 02/01/2024 ActiveStart: 41-87-3940dyijumth (Narcan) 4 mg/0.1 mL nasal spray Indications: Cough, unspecified type , Other chronic pain Administer 1 spray (4 mg) into affected nostril(s) if needed for opioid reversal. May repeat every 2-3 minutes if needed, alternating nostrils, until medical assistance becomes available. 2 each 02/01/2024 Activenitrofurantoin, macrocrystals 25 mg / nitrofurantoin, monohydrate 75 mg oral capsule (8 sources)Nitrofuran AntibacterialStart: 03-29-2025 End: 33-23-2343xmxw 1 capsule by mouth in the morningnitrofurantoin, macrocrystal-monohydrate, (Macrobid) 100 MG capsule Indications: Acute cystitis without hematuria Take 1 capsule (100 mg) by mouth in the morning and 1 capsule (100 mg) before bedtime. Do all this for 5 days. 10 capsule 03/29/2025 04/10/2025 Discontinued (Therapy completed)Start: 03-13-2025 End: 48-90-6338qgpf 1 capsule by mouth in the morningnitrofurantoin, macrocrystal-monohydrate, (Macrobid) 100 MG capsule Indications: Dysuria Take 1 capsule (100 mg) by mouth in the morning and 1 capsule (100 mg) in the evening. Take with meals. Do allthis for 7 days. 14 capsule 03/13/2025 03/20/2025 nystatin 369694 unt/ml oral suspension (20 sources)Polyene AntifungalStart: 06-03-2024 End: 31-66-2586awfmiatq (Mycostatin) 333417 UNIT/ML suspension Indications: Thrush Take 5 mL (500,000 Units) by mouth in the morning and 5 mL (500,000 Units) at noon and 5 mL (500,000 Units) in the evening and 5 mL(500,000 Units) before bedtime. Do all this for 14 days. 280 mL 06/03/2024 06/20/2024 Active Start: 10-15-2022 End: 60-82-8584zgqp 1 mL by mouth four times dailyNystatin Discontinued 4 ML PO Four times daily October 15, 2022 1:00am November 26, 2022 11:47am swish and swallowStart: 06-18-2020 End: 88-73-3137Quqmb: 06-18-2020 End: 66-87-1517bjmk 0.5 mL by mouth three times daily as needed for painNystatin 837529 UNIT/ML APPLY 1/2 ML TO EACH SIDE OF MOUTH 3 TIMES A DAY NEEDED FOR ORAL PAIN Mouth/Throat for 90 Not-Taking/PRNtake 0.5 mL by mouth three times daily as needed for painNystatin 250533 UNIT/ML APPLY 1/2 ML TO EACH SIDE OF MOUTH 3 TIMES A DAY NEEDED FOR ORAL PAIN Mouth/Throat for 90 Not-Taking omeprazole 40 mg delayed release oral capsule (20 sources)Proton Pump InhibitorStart: 08-11-2025 End: 51-91-9268bsqb 1 capsule by mouth before mealtimeomeprazole (PriLOSEC) [address] capsule Indications: Gastroesophageal reflux disease, unspecified whether esophagitis present Take 1 capsule (40 mg) by mouth in the morning. Take before meals. Do not crush or chew. 90 capsule 2 08/11/2025 05/08/2026 ActiveStart: 28-78-4404uqgt 40 mg by mouth once dailyomeprazole 40 mg, Oral, Daily Start Date: 12/25/20 Status: Ordered Repeat number: 1Start: 11-24-2017 End: 03-61-8840Atcwt: 05-02-2013 End: 14-57-6541Idzplux on above:Take 40 mg by mouth once daily.oxyCODONE hydrochloride 10 mg oral tablet (20 sources)Opioid AgonistStart: 07-19-2025 End: 36-35-5136Druol: 93-19-8907gzgo 1 tablet by mouth every four hours as needed5 mg, oral, Every 4 hours PRN, pain mild (1-3), first line, Starting on Mela 06/22/25 at 0847, Recovery (only), When able to take oral medications., If ordered PRN for pain, nurse is permitted to administer this medication for higher pain scores based on patient preference? YesStart: 06-15-2025 End: 62-65-7567Iacqo: 12-23-2024 End: 56-83-2777Ksnyh: 11-23-2024 End: 25-89-8384Msaur: 51-63-8304crae 10 mg by mouth every four to six hours Oxycodone Active 10 MG PO EVERY 4-6 HOURS 140 June 28, 2024Start: 12-31-2023 End: 23-02-2975somw 10 mg by mouth every four to six hoursOxycodone Discontinued 10 MG PO EVERY 4-6 HOURS 120 30 March 24, 2024 April 10, 2024 6:02pmStart: 15-55-9764dcdl 10 mg by mouth four times daily as needed for pain10 mg, oral, 4 times daily PRN, pain severe (7-10), first line, Starting on Thu11/18/23 at 1423 Start: 27-61-2367qstp 1 tablet by mouth every four hours as mg, oral, Every 4 hours PRN, pain severe (7-10), first line, Starting on Thu08/04/23 at 0035Start: 11-20-2017 End: 02-10-4899Nfzfr: 11-20-2017 End: 98-11-1869asxt 10 mg by mouth twice dailyOxycodone Discontinued 10 MG PO Twice daily November 20, 2017 1:00am December 31, 2023 2:44pmStart: 47-42-1405nscy 10 mg by mouth three times dailyOxycodone Active 10 MG PO Three times daily November 20, 2017 1:00amoxygen (O2) therapy (1 source)Start: 45-14-9775rsduwzvvqr, Continuous PRN - O2/gases, other, Starting on Thu01/05/25 at 0941, Recovery (only), Device: Nasal Cannula, Rate in liters per minute: Other, Custom Value: 1-6 LPM, Keep O2 Sat Above: 92%Ozempic (1 MG/DOSE) 2 MG/1.5ML (13 sources)Ozempic (1 MG/DOSE) 2 MG/1.5ML 1 mg as directed Subcutaneous weekly for 28 ActiveOzempic 0.25 mg or 0.5 mg (2 mg/3 mL) pen injector (8 sources)Start: 21-26-0645wgucev 0.5 mg by subcutaneous injection every week Ozempic 0.25 mg or 0.5 mg (2 mg/3 mL) pen injector Inject 0.5 mg under the skin 1 (one) time per week. 08/23/2024 Activepantoprazole 40 mg delayed release oral tablet (20 sources)Proton Pump InhibitorStart: 86-46-6409Nxcdy: 08-26-2024 End: 80-26-7461ynxa 1 tablet by mouth in the morningpantoprazole (ProtoNix) 40 MG EC tablet Take 40 mg by mouth in the morning and 40 mg before bedtime. 05/15/2025 ActiveStart: 03-31-2024 End: 40-49-5263qsta 1 tablet by mouth in the morningpantoprazole (Protonix) 20 MG EC tablet Indications: Gastroesophageal reflux disease without esophagitis Take 1 tablet (20 mg) by mouth in the morning and 1 tablet (20 mg) before bedtime. Do not crush, chew, or split.. 180 tablet 1 12/01/2024 03/29/2025 Discontinued (Ineffective)Start: 03-24-2024 End: 48-03-1674Zyyxb: 95-05-6541ants 40 mg by mouth once daily before breakfast 40 mg, oral, Daily before breakfast, First dose on Thu11/19/23 at 0800 Do not crush, chew, or split.Start: 83-61-7386spwd 40 mg by mouth once daily before mg, oral, Daily before breakfast, First dose on Thu08/04/23 at 0700 Do not crush, chew, or split.perflutren lipid microspheres 1.3 mL in NaCl (PF) 0.9% 10 mL injection (DEFINITY) (2 sources)Start: 04-28-2022 End: 06-44-2490szyvycskji lipid microspheres 1.3 mL in NaCl (PF) 0.9% 10 mL injection (DEFINITY)predniSONE 20 mg oral tablet (20 sources)Start: 94-19-7698pkirccSFXB (Deltasone) 20 MG tablet Indications: COPD with acute exacerbation (HCC) Take two tablets (40 mg) daily for five days, then take one tablet (20 mg) daily for five days. Take with food. 15 tablet 08/22/2025 ActiveStart: 04-10-2025 End: 66-21-5946natw 1 tablet by mouth in the morningpredniSONE (Deltasone) 20 MG tablet Indications: COPD with acute exacerbation (CMS/HCC) Take 1 tablet (20 mg) by mouth in the morning and 1 tablet (20 mg) before bedtime. Do all this for 5 days. 10 tablet 04/10/2025 04/15/2025 ActiveStart: 03-01-2025 End: 31-05-0894skbw 1 tablet by mouth in the morningpredniSONE (Deltasone) 20 MG tablet Indications: Acute recurrent maxillary sinusitis Take 1 tablet (20 mg) by mouth in the morning and 1 tablet (20 mg) before bedtime. Do all this for 5 days. 10 tablet 03/01/2025 03/06/2025 ActiveStart: 12-01-2024 End: 35-58-6282wkbgxwKVLI (Deltasone) 20 MG tablet Indications: Upper respiratory tract infection, unspecified type Take two tablets (40 mg) daily for five days, then take one tablet (20 mg) daily for five days. Take with food. 15 tablet 12/01/2024 12/20/2024 Discontinued (Therapy completed)Start: 07-20-2024 End: 55-16-9266cxwy 1 tablet by mouth once dailypredniSONE (Deltasone) 10 MG tablet Indications: Cough in adult Take 1 tablet (10 mg) by mouth Daily for 5 days 5 tablet 07/20/2024 07/25/2024 ActiveStart: 05-30-2024 End: 49-01-6239Jsspq: 05-30-2024 End: 34-89-0611Lwqer: 04-10-2024 End: 05-21-1987Vxwgh: 04-10-2024 End: 75-05-9967Umiferbzfb Discontinued MG TABLET April 10, 2024 12:00am April 10, 2024 9:14pmStart: 02-22-2024 End: 58-25-6948Qhzqd: 10-20-2018 End: 53-14-9464Bvtxu: 10-20-2018 End: 51-87-0956hszc 40 mg by mouth once dailyPrednisone Discontinued 40 MG PO Daily 10 October 20, 2018 1:00am October 25, 2018 1:01amprednisone Not-Taking/PRNprednisone Not-Takingprednisone Activeprochlorperazine 10 mg oral tablet (13 sources)PhenothiazineStart: 07-28-2025 End: 83-99-5033hifj 1 tablet by mouth every eight hours as needed prochlorperazine (Compazine) 10 MG tablet Take 10 mg by mouth every 8 (eight) hours if needed 07/28/2025 ActiveStart: 09-17-6379gzcywamtrzqtposv (Compazine) tablet 10 mgStart: 61-21-9576xzmmazznhkejptte (Compazine) injection 10 mgStart: 26-56-4086udij 10 mg by mouth every six hours as needed for mg, oral, Every 6 hours PRN, nausea/vomiting, first line, Starting on Thu08/04/23 at 1300 Start: 08-06-3860ekvc 10 mg by mouth every six hours as needed for nlaonx39 mg, intravenous, Every 6 hours PRN, nausea/vomiting, first line, administer if unable to tolerate PO, Starting on Thu08/04/23 at 1300Respiratory Therapy Supplies (Nebulizer Mask Adult/Tubing) misc (20 sources)Start: 01-17-2025 End: 25-26-8701Qakhkwghlqo Therapy Supplies ([place]izer [place]ubing[place] [facility] [place]: COPD with acute exacerbation (HCC) 1 Application every 6 (six) hours if needed (shortness of breath, wheezing) 2 each 2 01/17/2025 04/17/2025 ActiveStart: 01-17-2025 End: 64-64-8335Pquciijslwb Therapy Supplies (Nebulizer Mask Adult/Tubing) [facility] [place] [facility] [place]ications: COPD with acute exacerbation (CMS/HCC) 1 Application every 6 (six) hours if needed (shortness of breath, wheezing) 2 each 2 01/17/2025 04/17/2025 ActiveRespiratory Therapy Supplies (Nebulizer/Tubing/Mouthpiece) kit (20 sources)Start: 23-29-6978Ivkdmzcofra Therapy Supplies (Nebulizer/Tubing/Mouthpiece) kit Indications: Chronic obstructive pulmonary disease, unspecified COPD type (HCC) 1 kit See administration instructions 1 kit 11 06/09/2025 ActiveStart: 06-09-2025 End: 92-57-1814Reftodoxfag Therapy Supplies (Nebulizer/Tubing/Mouthpiece) kit Indications: Chronic obstructive pulmonary disease, unspecified COPD type (HCC) 1 kit See administration instructions 1 kit 11 06/09/2025 07/09/2025 Active0.25 mg, 0.5 mg dose 1.5 ml semaglutide 1.34 mg/ml pen injector (20 sources)Start: 62-13-6955cjalhbcrrey (OZEMPIC) 0.25 mg or 0.5 mg(2 mg/1.5 mL) pen injector Semaglutide (Ozempic) 0.25 mg or 0.5 mg(2 mg/1.5 mL) Pen Injector Active 0.5 MG SUBCUT every week September 24, 2020 12:34pm 09/24/2020 ActiveStart: 09-24-2020 End: 91-70-9991Vplyl: 47-39-2944Vgxorzejakv (Ozempic) 0.25 mg or 0.5 mg(2 mg/1.5 mL) Pen Injector Active 0.5 MG SUBCUT every week September 24, 2020 1:00am Comment on above:Semaglutide (Ozempic) 0.25 mg or 0.5 mg(2 mg/1.5 mL) Pen Injector Active 0.5 MG SUBCUT every week September 24, 2020 12:34pmSemaglutide (20 sources)Start: 28-70-8650Csamr: 05-30-2024 End: 69-65-5154Shzlr: 90-24-2844Gxohpqonfmv (Ozempic) 0.25 mg or 0.5 mg (2 [...] MG/DOSE,) 2 MG/3ML solution pen-injector (20 sources)Start: 54-31-2712Olazvvafmhv,0.25 or 0.5MG/DOS, (Ozempic, 0.25 or 0.5 MG/DOSE,) 2 MG/3ML solution pen-injector Indications: Type 2 diabetes mellitus with other specified complication, without long-term current use of insulin (HCC) , Class 1 obesity due to excess calories with serious comorbidity and body mass index(BMI) of 33.0 to 33.9 in adult Inject 0.5 mg under the skin 1 (one) time per week 9 mL 3 03/23/2025tiveStart: 03-23-2025 End: 43-78-7745Gneaehrflup,0.25 or 0.5MG/DOS, (Ozempic, 0.25 or 0.5 MG/DOSE,) [...] week 9 mL 3 ActiveStart: 03-23-2025 End: 42-66-3415Pwohtuhntmk,0.25 or 0.5MG/DOS, (Ozempic, 0.25 or 0.5 MG/DOSE,) 2 MG/3ML solution pen-injector Indications: Type 2 diabetes mellitus with other specified complication, without long-term current use ofinsulin , Class 1 obesity due to excess calories with serious comorbidity and body mass index (BMI)of 33.0 to 33.9 in adult Inject 0.5 mg under the skin 1 (one) time per week 9 mL 3 03/23/2025 06/21/2025 ActiveStart: 91-44-2241Pvvxvwalign,0.25 or 0.5MG/DOS, (Ozempic, 0.25 or 0.5 MG/DOSE,) [...] week 9 mL 12/07/2024 ActiveStart: 12-07-2024 End: 66-05-5418Pagvbvtlomq,0.25 or 0.5MG/DOS, (Ozempic, 0.25 or 0.5 MG/DOSE,) [...] 9 mL 12/07/2024 03/07/2025 ActiveStart: 12-07-2024 End: 54-82-4285Ptcmpxrttfr,0.25 or 0.5MG/DOS, (Ozempic, 0.25 or 0.5 MG/DOSE,) [...] 9 mL 12/07/2024 03/07/2025 ActiveStart: 09-14-2024 End: 24-04-7386Iqcldzsraif,0.25 or 0.5MG/DOS, (Ozempic, 0.25 or 0.5 MG/DOSE,) [...] mL 2 09/14/2024 12/20/2024 Discontinued (Therapy completed)Start: 62-11-1620Zeqfcppawpx,0.25 or 0.5MG/DOS, (Ozempic, 0.25 or 0.5 MG/DOSE,) [...] 3 mL 2 09/14/2024 ActiveStart: 09-14-2024 End: 43-52-8895Hwhxdwvpqpq,0.25 or 0.5MG/DOS, (Ozempic, 0.25 or 0.5 MG/DOSE,) [...] mL 2 09/14/2024 10/14/2024 ActiveStart: 09-05-2024 End: 34-23-8206Pbsptnytexd,0.25 or 0.5MG/DOS, (Ozempic, 0.25 or 0.5 MG/DOSE,) [...] mL 09/05/2024 10/05/2024 Active Start: 08-23-2024 End: 56-64-7171Mgorubdljtj,0.25 or 0.5MG/DOS, (Ozempic, 0.25 or 0.5 MG/DOSE,) 2 MG/3ML solution pen-injector Indications: Type 2 diabetes mellitus with other specified complication, without long-term current use ofinsulin ([facility]) , Class 1 obesity due to excess calories with serious comorbidity and body mass in dex (BMI) of 33.0 to 33.9 in adult Inject 0.25 mg under the skin 1 (one) time per week for 14 days 3 mL 08/23/2024 09/06/2024 Activesennosides, care home 8.6 mg oral tablet (14 sources)Start: 59-00-2042Lzsgr: 08-08-2023 End: 77-26-3036iyhu 1 tablet by mouth twice daily8.6 mg (1 tablet), oral, 2 times daily, First dose on 08/08/23 at 2100Start: 93-66-1902wltq 1 tablet by mouth once daily as needed for ztsepravrmpc95.2 mg (2 tablet), oral, Nightly PRN, constipation, first line, Starting on Thu08/04/23 at 1104simvastatin 20 mg oral tablet (8 sources)HMG-CoA Reductase InhibitorStart: 08-11-2025 End: 99-10-0270mlui 1 tablet by mouth at bedtimesimvastatin (Zocor) 20 MG tablet Indications: Hyperlipidemia, group D Take 1 tablet (20 mg) by mouth at bedtime 90 tablet 2 08/11/2025 05/08/2026 Activesodium chloride 9 mg/ml inhalation solution (20 sources)Start: 06-27-2024 End: 62-08-0459Kxjmv: 43-88-2255Xpwls: 06-27-2024 End: 36-17-8691nqwq 1 mL by inhalation every twelve hoursSodium Chloride Active 3 ML INHALATION Every 12 hours 180 June 27, 2024 2:55pmStart: 06-27-2024 take 1 dose by inhalation three times dailySodium Chloride Active 3 ML INHALATION Three times daily 90 June 27, 2024 12:00am On Hold: changing doseStart: 38-63-3227niunjf chloride 0.9 % bolus 500 mLStart: 08-11-2023 End: mL, intravenous, at 250 mL/hr, Administer over 2 Hours, Once, On e 08/11/23 at 1400, For 1 doseStart: mL, intravenous, at 1,000 mL/hr, Administer over 0.5 Hours, As needed, Moderate or severe hypers ensitivity reaction, Starting on Thu08/04/23 at 0959 ADMINISTRATION PRECAUTION Administer for SBP LESS THAN 90 mmHg. Use D5W if Liposomal DOXOrubicin or OXALIplatin was previously infusing.Start: 04-28-2022 End: 62-01-8230wnadgu chloride 0.9 % (flush) 10 mL (BD POSIFLUSH)spironolactone 50 mg oral tablet (20 sources)Aldosterone AntagonistStart: 07-11-2024 End: 00-16-2696cvhv 1 tablet by mouth once dailyspironolactone (Aldactone) 50 MG tablet Indications: Chronic obstructive pulmonary disease, unspecified COPD type (HCC) Take 1 tablet (50 mg) by mouth Daily 90 tablet 3 12/14/2024 12/09/2025 ActiveStart: 40-42-0594wock 1 tablet by mouth once daily spironolactone (Aldactone) 50 MG tablet Indications: Chronic obstructive pulmonary disease, unspecified COPD type (CMS/HCC) Take 1 tablet (50 mg) by mouth Daily 30 tablet 1 06/16/2024 ActiveStart: 04-19-2024 End: 11-25-9767bxcrruiybyztsvfi 800 mg / trimethoprim 160 mg oral tablet (20 sources)Dihydrofolate Reductase Inhibitor Antibacterial, Sulfonamide AntimicrobialStart: 11-22-2023 End: 87-79-8219qbna 1 tablet by mouth once dailysulfamethoxazole-trimethoprim (Bactrim DS) 800-160 mg tablet Indications: Multiple myeloma, remission status unspecified (Multi) Take 1 tablet by mouth once a day on Thursday, Thursday, and Thursday. 12tablet 1 05/11/2024 ActiveStart: 58-63-0829cqji 1 tablet by mouth once sulfamethoxazole-trimethoprim (Bactrim DS) 800-160 MG per tablet TAKE 1 TABLET BY MOUTH EVERY THURSDAY, THURSDAY AND Thursday01/11/2024 ActiveStart: 10-21-2023 End: 81-54-2957Cdktm: 08-12-2023 End: 27-87-7364leoe 1 tablet by mouth once dailysulfamethoxazole-trimethoprim (Bactrim DS) 800-160 mg tablet Indications: Multiple myeloma, remission status unspecified (CMS/HCC) Take 1 tablet by mouth once a day on Thursday, Thursday, and Thursday. 12 tablet 0 09/09/2023 ActiveStart: 08-12-2023 End: 62-96-1503Xcnlpfhwkrc-cqyv 30 MG/3ML solution (20 sources)Start: 44-67-2994Yfyurunikjw-cqyv 30 MG/3ML solution 03/21/2024 ActivetraZODone hydrochloride 50 mg oral tablet (2 sources)Serotonin Reuptake InhibitorStart: 18-27-1206Zckizsx B-12 1000 MCG (10 sources)take 1 tablet under the tongue once dailyVitamin B-12 1000 MCG 1 tablet under the tongue and allow to dissolve Sublingual Once a day Active vitamin b12 1 mg oral tablet (20 sources)Vitamin V46Pijlw: 26-02-8549lmxa 1000 ug by mouth once daily1,000 mcg, oral, Daily, First dose on Thu11/18/23 at 1430Start: 69-04-3377mazn 1000 ug by mouth once daily1,000 mcg, oral, Daily, First dose on Thu08/04/23 at 1115 Start: 74-13-3861rddh 1 tablet under the tongue once dailyCyanocobalamin (Vitamin B-12) 1000 MCG sublingual tablet DISSOLVE 1 TABLET UNDER THE TONGUE ONCE A DAY 03/03/2023 ActiveStart: 41-61-0097Kizmy: 10-29-2020 End: 47-33-3326Zcnxr: 09-15-2018 End: 58-26-2584pmpa 1 tablet by mouth every twenty-four hoursVitamin B-12 1000 MCG 1 tablet under the tongue and allow to dissolve Sublingual Once a day Active Comment on above:1,000 mcg.Vitamin D (1 source)Start: 91-04-8042Cugtdsg D 50,000 International_Unit, Oral, Daily Start Date: 12/25/20 Status: Ordered Repeat number:1 (20 sources)Start: 43-88-5613Juajf: 10-86-3783Rgorm: 82-74-5294Lxdfh: 09-12-2023 End: 39-47-2779Ztatt: 01-28-2023 End: 85-06-2271Amhtz: 32-26-6689Opbna: 12-24-2021 End: 85-07-6312Vuiaj: 07-26-2021 End: 02-28-9375Wnavv: 81-30-1163Ggxej: 11-24-2017 End: 57-15-7946Ddqjv: 11-24-2017 End: 11-94-1350Lzqia: 83-63-1199Hjfxa: 11-20-2017 End: 39-60-5732Ttqun: 11-20-2017 (1 source) Completed/Discontinued Medications MedicationDrug Class(es)DatesSig (Normalized)Sig (Original)acetaminophen 325 mg oral tablet (7 sources)Start: 11-22-2023 End: 84-81-0113lwieqrtcfiacf (Tylenol) tablet 650 mgStart: 11-20-2023 End: 33-19-3578bxjkrrjsifuqo (Tylenol) tablet 650 mgStart: 11-18-2023 End: 67-21-8465yhneercovlgto (Tylenol) tablet 650 mgStart: 08-09-2023 End: 04-98-0021bwbp 650 mg by mouth ntpr718 mg, oral, Once, On Thu08/09/23 at 1530, For 1 doseStart: 08-06-2023 End: 76-11-2818ovmn 650 mg by mouth zxte083 mg, oral, Once, On Thu08/06/23 at 1500, For 1 doseStart: 30-57-9361zvbm 650 mg by mouth every six hours as needed 650 mg, oral, Every 6 hours PRN, headaches, Starting on Mela 08/06/23 at 1023 If ordered PRN for pain, nurse is permitted to administer this medication for higher pain scores based on patient preference? YesStart: 08-04-2023 End: 71-77-1064jtyu 650 mg by mouth pftr446 mg, oral, Once, On Thu08/04/23 at 1300, For 1 doseacyclovir 400 mg oral tablet (20 sources)Herpesvirus Nucleoside Analog DNA Polymerase Inhibitor, Herpes Simplex Virus Nucleoside Analog DNA Polymerase Inhibitor, Herpes Zoster Virus Nucleoside Analog DNA Polymerase InhibitorStart: 04-02-2020 End: 56-38-4243hcrsgtac hydroxide 40 mg/ml / magnesium hydroxide 40 mg/ml / simethicone 4 mg/ml oral suspension (1 source)Start: 11-25-2023 End: 98-17-2696isgl-mag hydroxide-simeth (Mylanta) 200-200-20 mg/5 mL oral suspension 10 mLamoxicillin 875 mg / clavulanate 125 mg oral tablet (20 sources)Penicillin-class AntibacterialStart: 11-26-2022 End: 84-06-7377Urlyv: 11-26-2022 End: 18-55-4267dgam 1 tablet by mouth twice dailyAmoxicillin-Pot Clavulanate Discontinued 1 TAB PO Twice daily December 26, 2022 11:01January 28, 2023 8:23amascorbic acid 1000 mg oral tablet (10 sources)Vitamin C End: 08-10-4265Aoeobnmv Acid (vitamin C) 1000 MG tablet 1 (one) time each day at the same time. 08/23/2024 Discontinued (Therapy completed)30 ml bupivacaine hydrochloride 5 mg/ml injection (1 source)Amide Local AnestheticStart: 06-22-2025 End: 37-60-6734Htmm PRN Procedure, Starting on Thu06/22/25 at 0840, For 1 dose, Intraprocedurecefepime 2000 mg injection (20 sources)Cephalosporin AntibacterialStart: 04-15-2024 End: 93-66-8192avkkuqcqjpf 100 mg oral tablet (12 sources)Cephalosporin AntibacterialStart: 05-31-2025 End: 72-99-9400uatrpahwsnudblo hydrochloride 5 mg oral tablet (20 sources)Muscle RelaxantStart: 02-23-2023 End: 45-61-1094vbvruxzlyghbisa (Flexeril) 5 MG tablet 1 (one) time each day at the same time. 02/23/2023 03/01/2025 Discontinued (Ineffective)Start: 10-20-2018 End: 65-76-0645mvpevoukjezyk 4 mg oral tablet (20 sources)CorticosteroidStart: 11-22-2023 End: 70-59-1622yjbJTCOYscpyn (Decadron) tablet 16 mgStart: 11-20-2023 End: 15-12-0953bojHOSVXgthii (Decadron) tablet 16 mgStart: 11-18-2023 End: 88-33-3193bewLINYKitenx (Decadron) tablet 16 mgStart: 08-09-2023 End: 86-23-2002vjte 16 mg by mouth once16 mg, oral, Once, On 08/09/23 at 1530, For 1 doseStart: 08-06-2023 End: 93-98-0677nzfv 16 mg by mouth once16 mg, oral, Once, On Mela 08/06/23 at 1500, For 1 doseStart: 08-04-2023 End: 84-76-7733licm 16 mg by mouth once16 mg, oral, Once, On Tu08/04/23 at 1300, For 1 doseStart: 01-28-2023 End: 26-86-8681Vdoqmlprgkruo Discontinued 20 MG PO As Directed January 28, 2023 8:27am January 21, 2024 11:17am take 5 tablest by mouth at once when directed related to chemotherapy scheduleStart: 07-14-2022 End: 23-33-4221purw 40 mg by mouth onceDexamethasone Discontinued 40 MG PO Once 40 August 15, 2022 12:00am January 09, 2023 11:42amStart: 04-02-2020 End: 73-96-7527Otpxd: 04-02-2020 End: 02-86-9887aowy 20 mg by mouth onceDexamethasone Discontinued 20 MG PO Once 60 90 March 26, 2022 9:22am January 28, 2023 8:27amdextromethorphan hydrobromide 1.5 mg/ml / pyrilamine maleate 1.5 mg/ml oral solution (6 sources)Uncompetitive O-bwovow-G-aspartate Receptor Antagonist, Sigma-1 AgonistStart: 12-01-2024 End: 96-01-9953wimo 5 mL by mouth every six hoursDextromethorphan-Pyrilamine ([place] DM) 7.5-7.5 MG/5ML liquid Indications: Upper respiratory tract i nfection, unspecified type Take 5 mL by mouth every 6 (six) hours if needed (cough) for up to 7 days 140 mL 12/01/2024 12/20/2024 Discontinued (Therapy completed)diazePAM 5 mg oral tablet (20 sources)BenzodiazepineStart: 09-15-2024 End: 68-79-1910Jkhnb: 05-21-2020 End: 01-33-2629Mmhvx: 05-21-2020 End: 80-56-0761Hnova: 05-21-2020 End: 27-32-1183Tzygrckj (Valium) 5 mg Tablet Discontinued 5 MG PO As Directed 2 1 July 17, 2021 3:01pm January 28, 2023 8:28am take 30 minutes before MRI, may repeat X1 five minutes before MRI if needed. 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 diphenhydrAMINE hydrochloride 50 mg oral capsule (8 sources)Histamine-1 Receptor AntagonistStart: 11-22-2023 End: 56-80-0691lrzznvpeysVJFKD (BENADryl) capsule 50 mgStart: 11-20-2023 End: 47-78-3655aoiltdelhuHCKSC (BENADryl) capsule 50 mgStart: 11-18-2023 End: 64-68-7021ajbttruicsNCQHB (BENADryl) capsule 50 mgStart: 11-18-2023 diphenhydrAMINE (BENADryl) injection 50 mgStart: 08-09-2023 End: 60-08-1383ytgc 50 mg by mouth once50 mg, oral, Once, On Thu08/09/23 at 1530, For 1 doseStart: 08-06-2023 End: 69-71-1746gzet 50 mg by mouth once50 mg, oral, Once, On Mela 08/06/23 at 1500, For 1 doseStart: 08-04-2023 End: 23-37-4633scqw 50 mg by mouth once50 mg, oral, Once, On Thu08/04/23 at 1300, For 1 doseStart: 93-56-640792 mg, intravenous, Administer over 2 Minutes, As needed, Give first for moderate or severe hypersensitivity reaction, Starting on Thu08/04/23 at 0959, For 1 doseDULoxetine 60 mg delayed release oral capsule (20 sources)Serotonin and Norepinephrine Reuptake InhibitorStart: 45-86-6512tgpw 60 mg by mouth once dailyCymbalta 60 mg, Oral, Daily Start Date: 12/25/20 Status: Ordered Repeat number: 1Start: 11-20-2017 End: 12-93-6629dcph 1 capsule by mouth once dailyDULoxetine (Cymbalta) [address] capsule Indications: Fibromyalgia Take 1 capsule (60 mg) by mouth Daily Do not crush or chew. 90 capsule 3 04/28/2024 08/22/2025 Discontinued (Therapy completed)famotidine 20 mg oral tablet (12 sources)Histamine-2 Receptor AntagonistStart: 08-10-2024 End: 36-11-6573tvdc 1 tablet by mouth in the morningfamotidine (Pepcid) 20 MG tablet Indications: Gastroesophageal reflux disease without esophagitis Take 1 tablet (20 mg) by mouth in the morning and 1 tablet (20 mg) before bedtime. 180 tablet 2 08/10/2024 08/23/2024 Discontinued (Therapy completed)Start: 06-14-2024 End: 15-62-7787evdk 1 tablet by mouth in the morningfamotidine (Pepcid) 20 MG tablet Indications: Gastroesophageal reflux disease without esophagitis Take 1 tablet (20 mg) by mouth in the morning and 1 tablet (20 mg) before bedtime. 60 tablet 06/14/2024 ActiveStart: 90-58-4928achynidbdc PF (Pepcid) injection 20 mg Start: 29-75-098033 mg, intravenous, Administer over 2 Minutes, As needed, Give third for moderate or severe hypersensitivity reaction, Starting on Thu08/04/23 at 0959, For 1 doseferrous sulfate 325 mg oral tablet (20 sources)Start: 11-20-2017 End: 13-47-7003Ovyvu: 11-20-2017 End: 87-37-5572nmay 1 tablet by mouth twice dailyFerrous Sulfate Discontinued 1 TAB PO Twice daily November 20, 2017 1:00am November 24, 2017 3:03pmfolic acid 1 mg / vitamin b12 0.5 mg oral tablet (20 sources)Vitamin G85Tnjvq: 03-28-2021 End: 84-73-3727Bphbw: 03-28-2021 End: 52-02-3321axdk 1 tablet by mouth once dailyVitamin J77-Ugfjc Acid Discontinued 1 TAB PO Daily March 28, 2021 12:00am April 10, 2024 6:01pm gabapentin 400 mg oral capsule (20 sources)Anti-epileptic AgentStart: 11-18-2023 End: 82-03-6895hhzx 1 capsule by mouth once coqmg213 mg, oral, Nightly, First dose on Thu11/18/23 at 2100 Capsules may be opened and sprinkled on food (eg, applesauce, orange juice, puddingStart: 02-24-2023 End: 64-30-4960Qwsmn: 09-04-2022 End: 14-93-1614zjibeoxgil (Neurontin) 400 MG capsule 2 (two) times a day 09/04/2022 ActiveStart: 09-04-2022 End: 94-83-5420uole 1-2 capsules by mouth twice dailygabapentin (Neurontin) 100 mg capsule Take 1-2 capsules (100-200 mg) by mouth 2 times a day. 09/04/2022 02/23/2024 Discontinued (Med List Cleanup)Start: 80-83-6794gtam 4 capsules by mouth three times daily as neededgabapentin (Neurontin) 100 mg capsule Take 4 capsules (400 mg) by mouth 3 times a day as needed (Neuropathy). 0 09/04/2022 ActiveStart: 07-26-2021 End: 69-86-8694qvxv 600 mg by mouth three times dailyGabapentin Discontinued 600 MG PO Three times daily July 26, 2021 12:00am January 28, 2023 8:29am Start: 22-29-8870pvps 1 capsule by mouth three times dailygabapentin (NEURONTIN) 100 mg capsule TAKE ONE CAPSULE BY MOUTH THREE TIMES A DAY FOR 15 DAYS 2020 ActiveComment on above:TAKE ONE CAPSULE BY MOUTH THREE TIMES A DAY FOR 15 DAYSInsulin Aspart U-100 (Novolog Flexpen U-100 Insulin) 100 unit/mL (3 mL) Insulin Pen (14 sources)Start: 01-28-2023 End: 92-79-8046Pptjrng Aspart U-100 (Novolog Flexpen U-100 Insulin) 100 unit/mL (3 mL) Insulin Pen Discontinued 25UNIT SUBCUT Daily January 28, 2023 12:00am April 10, 2024 9:15pm INJECT 25 UNITS UNDER THE SKIN ON CHEMO DAYS AFTER CHEMO Start: 67-66-7163Cjwxazo Aspart U-100 (Novolog Flexpen U-100 Insulin) 100 unit/mL (3 mL) Insulin Pen Active 25 UNIT SUBCUT Daily January 27, 2023 11:00pm INJECT 25 UNITS UNDER THE SKIN ON CHEMO DAYS AFTER CHEMOStart: 41-62-5439Jorhfrt Aspart U-100 (Novolog Flexpen U-100 Insulin) 100 unit/mL (3 mL) Insulin Pen Active 25 UNIT SUBCUT Daily January 28, 2023 12:00am INJECT 25 UNITS UNDER THE SKIN ON CHEMO DAYS AFTER CHEMO3 ml insulin aspart, human 100 unt/ml pen injector (17 sources)Insulin AnalogStart: 01-28-2023 End: 85-93-0522Sfzpy: 22-16-3208EQKGFSH FLEXPEN U-100 INSULIN 100 unit/mL (3 mL) 04/28/2022 Active3 ml insulin detemir 100 unt/ml pen injector (20 sources)Insulin AnalogStart: 11-20-2017 End: 57-75-8214Xrraq: 11-20-2017 End: 73-48-1915Hurnbrj Detemir U-100 Discontinued 22 UNITS SUBCUT Daily November 20, 2017 1:00am September 12, 2023 9:37am Inject 22 unites under the skin once daily only if blood sugar is greater than 140Start: 11-20-2017 End: 49-97-8886Pfsghrv Detemir U-100 Discontinued 22 UNITS SUBCUT Daily November 20, 2017 12:00am September 12, 2023 8:37am Inject 22 unites under the skin once daily only if blood sugar is greater than 140Start: 06-59-7109Exjqvnt Detemir U-100 Active 22 UNITS SUBCUT Daily November 20, 2017 1:00am Inject 22 unites underthe skin once daily only if blood sugar is greater than 140Start: 10-53-1924psbxav 26 [IU] by subcutaneous injection once daily at bedtimeInsulin Detemir U-100 Active 26 UNITS SUBCUT Daily at bedtime November 20, 2017 1:00am Start: 16-22-1871rxcdnh 26 [IU] by subcutaneous injection once daily at bedtime Insulin Detemir U-100 Active 26 UNITS SUBCUT Daily at bedtime November 20, 2017 12:00amLevemir FlexTouch 100 UNIT/ML 22 units at bedtime Subcutaneous Daily Not-TakingComment on above:INJECT 22 UNITS SUBCUTANEOUSLY ONCE DAILY, INCREASE BY 2 UNITS FOR GLUCOSE LEVELS GREATER THAN 140insulin isophane, human 100 unt/ml injectable suspension (20 sources)Start: 05-21-2020 End: 36-04-9870Euixa: 35-15-0847EzquSTJ N FlexPen 100 UNIT/ML 20 units as tolerated Subcutaneous on chemo days after chemo May, Activelactulose 667 mg/ml oral solution (20 sources)Osmotic LaxativeStart: 04-09-2022 End: 10-23-7069rduu 15 mL by mouth once daily as [...] capsule (20 sources)Proton Pump InhibitorStart: 03-29-2025 End: 38-78-4345oboq 1 capsule by mouth once dailylansoprazole (Prevacid) [address] capsule Indications: Gastroesophageal reflux disease without esophagitis Take 1 capsule (30 mg) by mouth Daily Do not crush or chew. 30 capsule 1 03/29/2025 08/22/2025 Discontinued (Therapy completed)lenalidomide 5 mg oral capsule (20 sources)Thalidomide AnalogStart: 08-30-2021 End: 67-40-4068Gdjqk: 08-30-2021 End: 59-16-6045Tcnkeen FlexTouch 100 UNIT/ML (6 sources)Levemir FlexTouch 100 UNIT/ML 22 units at bedtime Subcutaneous Daily Not-Taking/PRNLevemir FlexTouch 100 UNIT/ML 22 units at bedtime Subcutaneous Daily Not-TakinglevoFLOXacin 750 mg oral tablet (20 sources)Quinolone AntimicrobialStart: 05-30-2024 End: 79-64-9063Ifele: 02-22-2024 End: 12-87-6066sutm 1 tablet by mouth once dailylevoFLOXacin (Levaquin) 750 mg tablet Take 1 tablet (750 mg) by mouth once daily. 02/22/2024 02/29/2024 Active Start: 11-26-2022 End: ml lidocaine hydrochloride 10 mg/ml injection (13 sources)Antiarrhythmic, Amide Local AnestheticStart: 06-22-2025 End: 11-43-6313wjqqfzbdcplx, Once PRN Procedure, Starting on Mela 06/22/25 at 0829, For 1 dose, IntraprocedureStart: 29-13-8789rirvdmlozj 5 mg oral tablet (20 sources)Angiotensin Converting Enzyme InhibitorStart: 04-28-2019 End: 01-32-0467Jmbafal on above:Take 1 tablet by mouth once daily.loratadine 10 mg oral tablet (20 sources)Start: 12-26-2022 End: 51-87-8831HMCvmzfut 0.5 mg oral tablet (19 sources)BenzodiazepineStart: 09-21-2024 End: ml magnesium sulfate 40 mg/ml injection (5 sources)Start: 11-23-2023 End: 49-56-6850cplcnzdma sulfate IV 2 gStart: 08-11-2023 End: g, intravenous, at 25 mL/hr, Administer over 4 Hours, Once, On e 08/11/23 at 0445, For 1 doseStart: 08-08-2023 [...] For 1 doseNirmatrelvir-Ritonavir (13 sources)Start: 09-12-2023 End: 88-57-6428Zcmpa: 54-87-9624objt 1 tablet by mouth onceNirmatrelvir- Ritonavir (Paxlovid (Eua)) 300 mg (150 mg x 2)-100 mg tablets,dose pack Active 0 PO .COMPLEX September 12, 2023 12:00am orally per package directions Nirmatrelvir-Ritonavir (Paxlovid (Eua)) 300 mg (150 mg x 2)-100 mg tablets,dose pack (10 sources)Start: 09-12-2023 End: 82-03-5835ldfd 1 tablet by mouth onceNirmatrelvir-Ritonavir (Paxlovid (Eua)) 300 mg (150 mg x 2)-100 mg tablets,dose pack Discontinued 0PO .COMPLEX September 12, 2023 1:00am October 20, 2023 10:52am orally per package directionsStart: 09-12-2023 End: 79-06-0806fcdu 1 tablet by mouth onceNirmatrelvir-Ritonavir (Paxlovid (Eua)) 300 mg (150 mg x 2)-100 mg tablets,dose pack Discontinued 0PO .COMPLEX September 12, 2023 12:00am October 20, 2023 9:52am orally per package directionsOLANZapine 2.5 mg oral tablet (20 sources)Atypical AntipsychoticStart: 01-21-2024 End: 88-76-4727Ebtkdgoswl Magnesium (Prilosec Otc) 20 mg Tablet,Delayed Release (Dr/Ec) (19 sources)Start: 11-24-2017 End: 43-79-2902Qipliszyxi Magnesium (Prilosec Otc) 20 mg Tablet,Delayed Release (Dr/Ec) Discontinued 40 MG PO Daily November 24, 2017 1:00am March 24, 2024 2:01pmStart: 74-07-8700Hrqbhthvib Magnesium (Prilosec Otc) 20 mg Tablet,Delayed Release (Dr/Ec) Active 40 MG PO Daily November 24, 2017 12:00amStart: 83-24-8304Tycznxicrm Magnesium (Prilosec Otc) 20 mg Tablet,Delayed Release (Dr/Ec) Active 40 MG PO Daily November 24, 2017 1:00amondansetron 8 mg disintegrating oral tablet (20 sources)Serotonin-3 Receptor AntagonistStart: 04-10-2024 End: 67-00-3177Oxzfi: 06-18-2021 End: 06-45-0760wnfm 1 tablet by mouth every eight hours as needed for nausea and vomitingondansetron ODT (Zofran-ODT) 8 MG disintegrating tablet Take 8 mg by mouth every 8 (eight) hours ifneeded for nausea or vomiting. 05/10/2023 Active Start: 06-18-2021 End: 36-95-8718orbm 8 mg by mouth three times dailyOndansetron Discontinued 8 MG PO Three times daily January 28, 2023 8:36am February 10, 2023 2:32pmStart: 04-02-2020 End: 47-62-4818gxbrvsjqptojuwz hydrochloride 100 mg oral tablet (20 sources)Start: 01-29-2023 End: 88-10-6951nccq 1 tablet by mouth every eight hoursPhenazopyridine HCl 200 MG 1 tablet after meals Orally Three times a day Activetake 1 tablet by mouth every eight hoursPhenazopyridine HCl 200 MG 1 tablet after meals Orally Three times a day Activepiperacillin 3000 mg / tazobactam 375 mg injection (2 sources)Penicillin-class Antibacterial, beta Lactamase InhibitorStart: 08-08-2023 End: 87-82-7775kxlb 3.375 g intravenously every six hours3.375 g, intravenous, at 100 mL/hr, Administer over 0.5 Hours, Every 6 hours, First dose on Mon 08/10 at 2215 premix bagpolyethylene glycol 3350 40199 mg powder for oral solution (20 sources)Osmotic LaxativeStart: 08-04-2023 End: 04-62-9712cvofaowajutq 2 mg oral capsule (20 sources)Thalidomide AnalogStart: 03-19-2022 End: 54-66-2107Abuuy: 02-19-2022 End: 85-61-6229tasylnnon chloride 10 meq extended release oral capsule (20 sources)Start: 02-05-2024 End: 33-66-6984Wgnbh: 78-33-9877jwrn 1 capsule by mouth once dailyPotassium Chloride Active 0 .ROUTE .COMPLEX 90 February 05, 2024 1:08pm TAKE 1 CAPSULE BY MOUTH EVERYDAYStart: 11-24-2023 End: 74-22-0121lvzgstjnr chloride 40 mEq in 100 mL IV premixStart: 00-06-873186 mEq, oral, Daily, First dose on Thu11/18/23 at 1430 Do not crush, chew, or split.Start: 08-08-2023 End: 76-34-384801 mEq, oral, Once, On 08/09/23 at 1145, For 1 dose Best given with food and plenty of water to minimize gastric irritation. Do not crush or chew.Start: 08-06-2023 End: 92-48-252290 mEq, intravenous, at 25 mL/hr, Administer over 4 Hours, Once, On Thu08/06/23 at 0530, For 1 doseVia central line. For central line administration only.Start: 79-86-851749 mEq, oral, Daily, First dose on Thu08/04/23 at 0900 Do not crush, chew, or split.Start: 08-04-2023 End: 19-45-303655 mEq, oral, 2 times daily, First dose on Thu08/04/23 at 0900, For 2 doses Best given with food and plenty of water to minimize gastric irritation. Do not crush or chew.Start: 08-29-2020 End: 34-83-6460Xqwoo: 08-28-2020 End: 37-64-4943Kceixwl on above:Take 10 mEq by mouth once daily.promethazine hydrochloride 25 mg oral tablet (20 sources)PhenothiazineStart: 01-21-2024 End: 52-18-0706ynnvnvyeeded calcium 5 mg oral tablet (20 sources)HMG-CoA Reductase InhibitorStart: 11-20-2017 End: 62-83-3123Oevkv: 11-20-2017 End: 96-76-9305ytdk 1 tablet by mouth once dailyRosuvastatin Discontinued 1 TAB PO Daily November 20, 2017 1:00am April 13, 2019 2:01pmSUMAtriptan 50 mg oral tablet (20 sources)Serotonin-1b and Serotonin-1d Receptor AgonistStart: 03-21-2024 End: 36-98-9454Wubvi: 22-81-9032aqfv 1 tablet by mouth every two hours Sumatriptan Succinate Active 0 PO .COMPLEX March 21, 2024 12:00am take 1 tab at onset of headache; if no relief may repeat 1 tab after at least 2 hrs; max = 4 tabs/24 hr POStart: 09-09-2023 End: 24-28-1240pmup 1 tablet by mouth onceSUMAtriptan (Imitrex) 50 MG tablet Take 50 mg by mouth 1 (one) time if needed. 09/09/2023 12/20/2024 Discontinued (Therapy completed)Teclistamab-Cqyv (20 sources)Start: 03-21-2024 End: 18-38-6616Oyhig: 03-21-2024 End: 75-50-6572Hiulnsnbukg-Cqyv (Tecvayli) 10 mg/mL solution Discontinued SUBCUT March 21, 2024 11:09am May 1:28pm On Hold: Resume on 05/06/24. Hold until recommended to be resumed by your primary care doctor and your multiple myeloma specialist patient is unsure of dose at this timeStart: 61-41-4727Xtxed: 04-37-7579Rghiywzqsfi-Cqyv (Tecvayli) 10 mg/mL solution Active SUBCUT March 21, 2024 11:09am patient is unsure of dose at this timeStart: 03-21-2024 End: 10-46-1713Sytkf: 03-21-2024 End: 18-16-9537Slhceqnbxrx-Cqyv (Tecvayli) 10 mg/mL solution Discontinued SUBCUT March 21, 2024 12:00am March 21, 2024 11:10amteclistamab-cqyv (Tecvayli) SUBQ solution 117 mg (1 source)Start: 11-22-2023 End: 19-76-6627dulxdhxrsgx-cqyv (Tecvayli) SUBQ solution 117 mgteclistamab-cqyv (Tecvayli) SUBQ solution 23.5 mg (1 source)Start: 11-20-2023 End: 71-40-1069iqittszcrxn-cqyv (Tecvayli) SUBQ solution 23.5 mgteclistamab-cqyv (Tecvayli) SUBQ solution 4.7 mg (1 source)Start: 11-18-2023 End: 58-21-3815pxcshkcgwph-cqyv (Tecvayli) SUBQ solution 4.7 mgtemazepam 30 mg oral capsule (20 sources)BenzodiazepineStart: 09-15-2018 End: 88-28-1040Tshdsztonncqg (13 sources)CorticosteroidStart: 58-35-4625Lgjogex -40 mg March, 20 mg (1 source)Start: 08-10-2023 End: 93-27-7866ewyf 1 mg by mouth twice daily1 packet, oral, 2 times daily, First dose on 08/10/23 at 1100, For 2 doses mg dosing is based onphosphorus component. Each packet contains 250 mg elemental phosphorus, 7.1 mEq potassium, and 6.9 mEq sodium. (2 sources)Start: 08-09-2023 End: 27-86-0625431.5 mg (1.5 mg/kg 81 kg Order-specific weight), subcutaneous, Once, On 08/09/23 at 1630, For 1dose [employer] [id number] HAZARDOUS - Handle with careStart: 08-06-2023 End: 45-70-4480xlrrwn 24.5 mg by subcutaneous injection once24.5 mg, subcutaneous, Once, On Mela 08/06/23 at 1645, For 1 dose HAZARDOUS - Handle with care (1 source)Start: 08-04-2023 End: 10-79-2586cfcahw 4.9 mg by subcutaneous injection once4.9 mg (rounded from 4.86 mg = 0.06 mg/kg 81 kg Order-specific weight), subcutaneous, Once, On Tue at 1400, For 1 dose [employer] [id number] HAZARDOUS - Handle with care Problems Active Problems Problem ClassificationProblemDateDocumented DateEpisodic/ChronicAbdominal pain (14 sources)Epigastric pain; Translations: [Epigastric pain]Onset: 07-19-2025 EpisodicAdjustment disorders (12 sources)Adjustment disorder with mixed anxiety and depressed mood; Translations: [Adjustment disorder with mixed anxiety and depressed mood] 02-15-4995UlldtdaQuduegqexsofku/social admission (20 sources)Patient encounter status; Translations: [Other specified counseling] 67-30-2656SfvpdxcgYsmc and rectal conditions (1 source)Anal pain; Translations: [Other specified diseases of anus and rectum] 53-84-6557ElyowwyeNshlyt; peripheral; and visceral artery aneurysms (20 sources)Aneurysm of ascending aorta; Translations: [Thoracic aortic aneurysm, without rupture]Onset: 06-08-2017 Resolved: 800677-10-0367QgugxnbWjnkmcjz of urinary tract (20 sources)Ureteric stone; Translations: [Calculus of ureter]Onset: 12-05-2020 Resolved: 168925-88-8967LbbjudncVwprby of liver and intrahepatic bile duct (20 sources)Liver cell carcinoma; Translations: [Liver cell carcinoma]Onset: 783775-70-7636AbgaxkkParhotc dysrhythmias (20 sources)Paroxysmal atrial fibrillation; Translations: [Paroxysmal atrial fibrillation]Onset: 306231-64-2427VzjczroFaazqyi kidney disease (2 sources)Chronic kidney disease stage 3A ; Translations: [Chronic kidney disease, stage 3a (HCC) (CMS/HCC)]41-68-2103EgkmifpMcoygem obstructive pulmonary disease and bronchiectasis (20 sources)Chronic obstructive lung disease; Translations: [Chronic obstructive pulmonary disease, unspecified]Onset: 197995-02-7428OetxthaBzqhlww obstructive pulmonary disease and bronchiectasis (1 source)Bronchitis; Translations: [Bronchitis, not specified as acute or chronic]43-74-8347PufyydlyKmfykunncqt and hemorrhagic disorders (20 sources)Thrombocytopenia due to sequestration; Translations: [Thrombocytopenia, unspecified]Onset: 05-31-2014 Resolved: 720256-41-7729AgsdvylFdvocekzin and other anemia (20 sources)Pancytopenia; Translations: [Other pancytopenia]Onset: 08-14-2023 51-57-3339DcuigalClvnznbiqr and other anemia (4 sources)Other pancytopenia; Translations: [Other pancytopenia]01-28-2023 ChronicDeficiency and other anemia (20 sources)Hypocellular bone marrow; Translations: [Aplastic anemia, unspecified]92-80-4593CtcgldwXdbjcmbjmm and other anemia (20 sources)Aplastic anemia, unspecified; Translations: [Unspecified diseases of blood and blood-forming organs]56-36-5906EvfrztwRwongplvwb and other anemia (1 source)Normocytic anemia; Translations: [Anemia, unspecified]08-23-2024 EpisodicDeficiency and other anemia (20 sources)Iron deficiency anemia; Translations: [Iron deficiency anemia, unspecified]71-46-5997QopxyojqFvqoahtwnu and other anemia (6 sources)Iron deficiency anemia, unspecified; Translations: [Iron deficiency anemia, unspecified]61-25-5055JmihfdlaRceildwnvi and other anemia (20 sources)Anemia; Translations: [Anemia, unspecified]Onset: 07-07-2025 45-63-1961YnpolewlWaenocpx mellitus without complication (20 sources)Diabetes mellitus; Translations: [Type 2 diabetes mellitus without complications]Onset: 852225-55-9913NieouzvWpfpcctz of white blood cells (20 sources)Neutropenia; Translations: [Neutropenia, unspecified]Onset: 02-25-2017 Resolved: 137370-70-8843UgoovnpWxralblsd of lipid metabolism (20 sources)Hyperlipidemia; Translations: [Hyperlipidemia, unspecified]Onset: 892052-17-6151RscxrjpFwieywtufs disorders (20 sources)Gastroesophageal reflux disease; Translations: [Gastro-esophageal reflux disease without esophagitis]Onset: 440203-33-1366GymdbtpKnkwqbcbp hypertension (20 sources)Hypertensive disorder; Translations: [Essential (primary) hypertension]Onset: 304321-51-4934JnqcuuxGtllzuqvjjlsd symptoms and ill- defined conditions (20 sources)Blood in urine; Translations: [Hematuria, unspecified]Onset: 629531-99-3164HrbsoqqkRckptebr; including migraine (1 source)Kngmngeb73-73-7812MgdvzydvAdbjy valve disorders (2 sources)Aortic stenosis, non-rheumatic ; Translations: [Nonrheumatic aortic (valve) stenosis]Onset: 422925-87-4292XvzutjmZeovnzljs (20 sources)Cirrhosis - non-alcoholic; Translations: [Nonalcoholic steatohepatitis (KAPADIA)]Onset: 531536-40-6192EgmhheqGrmggylxqorm with complications and secondary hypertension (2 sources)Secondary hypertension; Translations: [Secondary hypertension, unspecified]41-93-4654AhmksutJzvgbfuc disorders (20 sources)Immunosuppression; Translations: [Immunodeficiency, unspecified] Onset: 02-05-2021 Resolved: 605620-59-7963CwnnyhwOvxsomtaueabb and screening for infectious disease (2 sources)H/O: risk factor; Translations: [Contact with and (suspected) exposure to tuberculosis]86-51-3600VgsmtluaNismxofpqrp chemotherapy; radiotherapy (20 sources)Patient encounter status; Translations: [Encounter for antineoplastic immunotherapy]86-67-8496LubdmisWkhz disorders (20 sources)Depressive disorder; Translations: [Depression]Onset: 05-20-2023 96-74-3812TlnsglrHtcdcecz myeloma (20 sources)Multiple myeloma; Translations: [Multiple myeloma not having achieved remission]Onset: 03-09-2020 Resolved: 303719-63-6041TdapovcExbwilu (2 sources)Recurrent candidiasis of vagina; Translations: [Recurrent candidiasis of vagina]82-66-4062CvznrvkjGytjpg and vomiting (20 sources)Nausea; Translations: [Nausea]51-01-0491QizasfwvGxmwpqlizrb chest pain (20 sources)Chest pain; Translations: [Chest pain, unspecified]Onset: 04-19-2019 Resolved: 929698-17-3745ArncwvzzNmsoleyylos deficiencies (20 sources)Vitamin D deficiency; Translations: [Vitamin D deficiency, unspecified]Onset: 04-15-2006 Resolved: 044575-19-1660JtnvyajZqgjeonabpj deficiencies (20 sources)Iron deficiency; Translations: [Iron deficiency]Onset: 08-16-2025 24-17-0399OdglwtiwHijo wounds of extremities (1 source)Injury of upper extremity; Translations: [Unspecified open wound of left upper arm, initial encounter]99-15-1982GmccegonKvhlmbrnamnhfk (20 sources)Degenerative joint disease involving multiple joints; Translations: [Polyosteoarthritis, unspecified]Onset: 511399-74-6040DjpooawEtqfx aftercare (12 sources)Seen by palliative care physician; Translations: [Encounter for palliative care]EpisodicOther aftercare (13 sources)Long-term current use of insulin; Translations: [CHCF (current) use of insulin]EpisodicOther aftercare (2 sources)Encounter for palliative care; Translations: [Encounter for palliative care]EpisodicOther connective tissue disease (20 sources)Fibromyalgia; Translations: [Myalgia and myositis, unspecified] 15-09-6351CqvdzywpYldtm connective tissue disease (3 sources)Pain in lower limb; Translations: [Pain in right leg]12-29-2024 EpisodicOther connective tissue disease (6 sources)Pain in right leg; Translations: [Pain in limb]39-88-6154Vranyyzn Other connective tissue disease (20 sources)Pain in bilateral legs; Translations: [Pain in right leg]12-29-2024 EpisodicOther gastrointestinal disorders (1 source)Constipation, unspecifiedEpisodicOther liver diseases (20 sources)Lesion of liver; Translations: [Liver disease, unspecified]Onset: 030012-96-6536CqtadygHeype liver diseases (3 sources)Unspecified cirrhosis of liver; Translations: [Unspecified cirrhosis of liver (CMS/HCC)]Onset: 70-31-9356FpvumeiPnyyf liver diseases (1 source)Disease of jizlo50-02-3274BuinsmjYfaza liver diseases (1 source)Liver disease, unspecified; Translations: [Liver disease, unspecified] Onset: 11-81-7805LrfdsbeBpaiz liver diseases (1 source)Other cirrhosis of liver; Translations: [Liver cirrhosis secondary to KAPADIA (nonalcoholic steatohepatitis) (HCC)]Onset: 29-64-4995MgfbhptDjtyi lower respiratory disease (20 sources)Cough; Translations: [Refractory chronic cough]67-09-2039Ojqwjanr Other lower respiratory disease (20 sources)Cough; Translations: [Cough]11-96-8335CwutncwdZhvzb lower respiratory disease (4 sources)Chronic cough; Translations: [Chronic cough]81-28-0238YsayedbwRvhnl nervous system disorders (20 sources)Pain due to neoplastic disease; Translations: [Neoplasm related pain (acute) (chronic)]82-48-6940OeutovnXaocd nervous system disorders (20 sources)Neoplasm related pain (acute) (chronic); Translations: [Neoplasm related pain (acute) (chronic)]Onset: 542053-30-5074TkxciukBsopu nervous system disorders (13 sources)Chronic pain; Translations: [Other chronic pain]ChronicOther nervous system disorders (12 sources)Neuropathy; Translations: [Polyneuropathy, unspecified]ChronicOther nervous system disorders (3 sources)Polyneuropathy, unspecified; Translations: [Neuropathy]ChronicOther nervous system disorders (4 sources)Polyneuropathy due to drug; Translations: [Drug-induced polyneuropathy]Onset: 900074-02-5919ChdxxmgYpqth nervous system disorders (20 sources)Peripheral nerve disease ; Translations: [Polyneuropathy, unspecified]Onset: 597193-05-7121DhcusguSbeyg nervous system disorders (6 sources)Metabolic encephalopathy; Translations: [Metabolic encephalopathy] 79-13-2046JwteyheQkakr nervous system disorders (20 sources)Chronic pain syndrome; Translations: [Chronic pain syndrome]Onset: 05-01-2017 Resolved: 913037-05-0503EbfisunRhwbf nervous system disorders (4 sources)Chronic pain syndrome; Translations: [Chronic pain syndrome] 20-24-2785GeuwogfGaswe nervous system disorders (1 source)Drug-induced polyneuropathy; Translations: [Drug-induced polyneuropathy (CMS/HCC)]Onset: 85-21-0984MakvubnKnqlk non-traumatic joint disorders (20 sources)Hip pain; Translations: [Pain in right hip]30-11-5825HbaunhhvHohiq non-traumatic joint disorders (20 sources)Pain in right hip; Translations: [Pain in joint, pelvic region and thigh]96-29-3417YpwxznjjSpmvj nutritional; endocrine; and metabolic disorders (20 sources)Obesity; Translations: [Obesity, unspecified]35-31-8118UusbibdGhpwb nutritional; endocrine; and metabolic disorders (20 sources)Obesity, unspecified; Translations: [Obesity, unspecified]07-10-2022 ChronicOther nutritional; endocrine; and metabolic disorders (20 sources)Morbid obesity; Translations: [Body mass index (BMI) 60.0-69.9, adult]Onset: 334897-76-7180WeegmlaGovth nutritional; endocrine; and metabolic disorders (4 sources)Body mass index (BMI) 30.0-30.9, adult; Translations: [Body Mass Index 30.0-30.9, adult]69-31-9908BtfkftePuzjp nutritional; endocrine; and metabolic disorders (4 sources)Obesity caused by energy imbalance; Translations: [Class 1 obesity due to excess calories with serious comorbidity and body mass index (BMI) of 33.0 to 33.9 in adult]38-95-9412SonxjkwRepxu nutritional; endocrine; and metabolic disorders (15 sources)Hypomagnesemia; Translations: [Hypomagnesemia]16-87-5962SczuhgoIzdke nutritional; endocrine; and metabolic disorders (3 sources)Hypomagnesemia; Translations: [Disorders of magnesium metabolism] 59-26-0008BtxakrwXxbog screening for suspected conditions (not mental disorders or infectious disease) (20 sources)Imaging of thorax abnormal; Translations: [Abnormal findings on diagnostic imaging of other specified body structures]Onset: 08-10-2024 78-77-0953PdmahwhIdtpw upper respiratory disease (5 sources)Allergic rhinitis due to pollen; Translations: [Allergic rhinitis due to pollen]98-83-6171HunsfvtUqjhs upper respiratory disease (20 sources)Bleeding from nose; Translations: [Epistaxis]72-01-0730RjchmmzdTpgjn upper respiratory infections (20 sources)Frontal sinusitis; Translations: [Chronic frontal sinusitis]Onset: 04-25-2024 Resolved: 092282-73-5497XoqqwzkMdcww upper respiratory infections (10 sources)Acute upper respiratory infection, unspecified; Translations: [Upper respiratory infection]Onset: 320583-85-3400BbluwtevJvvyvpkw codes; unclassified (2 sources)Hypersomnia; Translations: [Hypersomnia, unspecified]07-20-2024 ChronicResidual codes; unclassified (20 sources)Family history of cancer of colon; Translations: [Family history of malignant neoplasm of digestiveorgans]00-03-9386RnzrzbdoMaodkant codes; unclassified (1 source)Family history of malignant neoplasm of breast; Translations: [FAMILY HX MALIG NEOPLASM OF BREAST]Onset: 90-58-3455HpsdcaftStzrtymn codes; unclassified (1 source)Family history of malignant neoplasm of digestive organs; Translations: [FAM HX MALIG NEOPLASM DIGESTIV ORGN]Onset: 00-80-1863Zixqztwb Residual codes; unclassified (1 source)Family history of malignant neoplasm of trachea, bronchus and lung; Translations: [FAM HX MALIG NEOPLSM TRACH BRON LNG]Onset: 38-64-1715Ylaeavgr Residual codes; unclassified (1 source)Family history of malignant neoplasm of other organs or systems; Translations: [FAM HX MALIG NEOPLASM OTH ORGN/SYS]Onset: 04-51-5777Seizjdcp Residual codes; unclassified (13 sources)Family history of malignant neoplasm of gastrointestinal tract; Translations: [Family history of malignant neoplasm of digestive organs]Episodic Residual codes; unclassified (2 sources)Altered mental status, unspecified; Translations: [Altered mental status]98-20-8412UjgthhfxQbdjtosaqxw; intervertebral disc disorders; other back problems (13 sources)Lumbar spondylosis; Translations: [Spondylosis without myelopathy or radiculopathy, lumbar region]ChronicSpondylosis; intervertebral disc disorders; other back problems (20 sources)Acute thoracic back pain; Translations: [Pain in thoracic spine] 03-65-9935BtnwoysxWiphrdgme-related disorders (1 source)Inhalant abuse; 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 abuse, in remission]12-20-2024 ChronicSuperficial injury; contusion (2 sources)Contusion of left front wall of thorax, subsequent encounter; Translations: [Other specified aftercare]79-36-6202EschkkhoFqagxxjbvhlz (3 sources)CONTACT W/AND (SUSP) EXPOS COVID-19; Translations: [CONTACT W/AND (SUSP) EXPOS COVID-19]Onset: 15-18-2662Ybnmwerkgdim (2 sources)New Patient Visit; Translations: [New Patient Visit]Onset: 11-28-2024 Unclassified (2 sources)Autogenerated ProblemOnset: 244528-26-0092Vfqhmjkrhwyd (1 source)Obesity, Class III, BMI 40-49.9 (morbid obesity) (HCC); Translations: [Obesity, Class III, BMI 40-49.9 (morbid obesity) (HCC)]Onset: 04-27-2019 Unclassified (1 source)Aneurysm of ascending aorta without rupture; Translations: [Aneurysm of ascending aorta without rupture]Onset: 50-16-9512Apgvjbl tract infections (20 sources)Urinary tract infectious disease; Translations: [Urinary tract infection, site not specified]69-39-1122Thhizdnh Past or Other Problems Problem ClassificationProblemDateDocumented DateEpisodic/ChronicAnxiety disorders (20 sources)Claustrophobia; Translations: [Claustrophobia]Onset: 01-10-2025 Resolved: 525789-23-2142JcjckxgEzocruwor infection; unspecified site (20 sources)Bacteremia; Translations: [Bacteremia]Onset: 06-20-2024 Resolved: 990765-25-9920RjomuizjHiwmlktuxj and other anemia (1 source)Anemia, unspecified; Translations: [Anemia, unspecified]Onset: 64-47-8288IpylqhdiRhtayodq mellitus with complications (20 sources)Hyperglycemia due to type 2 diabetes mellitus; Translations: [Type 2 diabetes mellitus with hyperglycemia]Onset: 11-11-2017 Resolved: 217921-89-0780BdqnwlcRazszrmffbazstyv hemorrhage (20 sources)Hematochezia; Translations: [Melena]Onset: EpisodicHemorrhoids (20 sources)Hemorrhoids; Translations: [Unspecified hemorrhoids]Onset: 11-18-2018 Resolved: 294382-92-0408EemsuisbHsavgefyastuc mental health disorders (20 sources)Primary insomnia; Translations: [Primary insomnia]Onset: 04-03-2017 Resolved: 099879-67-0095NrujuzzHtfx disorders (20 sources)Mood disorders; Translations: [Depression, unspecified]Onset: 652648-02-1324Ufieixnew of unspecified nature or uncertain behavior (20 sources)Smoldering myeloma; 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]Onset: 03-26-2006 Resolved: 815373-21-7265YrrqiybRqm-Epqszak`s lymphoma (7 sources)Malignant immunoproliferative disease (clinical); Translations: [Malignant immunoproliferative disease, unspecified]Onset: 04-16-2020 Resolved: 570537-91-6880KpttookVqdrz connective tissue disease (20 sources)Fibromyalgia; Translations: [Fibromyalgia]Onset: 05-20-2023 15-39-1496KdtkyxvkDzchz connective tissue disease (5 sources)Muscle pain; Translations: [Myalgia and myositis, unspecified]Onset: 449563-41-9029BaomijxfFegca connective tissue disease (1 source)Other specified soft tissue disorders; Translations: [Other specified soft tissue disorders]Onset: 09-42-3908QxcoyqltQjwwo gastrointestinal disorders (20 sources)Constipation; Translations: [Constipation, unspecified]Onset: 831884-50-8555YkoqbqcaIqsin infections; including parasitic (20 sources)Personal history of other infectious and parasitic diseases; Translations: [History of 2019 novel coronavirus disease (COVID-19)]Onset: 04-25-2024 Resolved: 016953-89-7397JuwaosbtGvyge liver diseases (20 sources)Cirrhosis of liver; Translations: [Unspecified cirrhosis of liver] Onset: 10-17-2015 Resolved: 683959-83-2734LtccewrTmfyu nervous system disorders (20 sources)Metabolic encephalopathy; Translations: [Metabolic encephalopathy] Onset: 06-20-2024 Resolved: 694270-94-9001PzbjtocQyhev nervous system disorders (20 sources)Polyneuropathy; Translations: [Polyneuropathy, unspecified]Onset: 10-05-2017 Resolved: 560734-48-4560SxhwyyoSpjha nutritional; endocrine; and metabolic disorders (20 sources)Body mass index 40+ - severely obese; Translations: [Morbid (severe) obesity due to excess calories]Onset: 04-20-2019 Resolved: 268209-02-2470FmrimbmUhohh nutritional; endocrine; and metabolic disorders (20 sources)Body mass index 30+ - obesity; Translations: [Body mass index (BMI) 30.0-30.9, adult]Onset: 04-20-2019 Resolved: 023312-81-4543AsycemrVzcbh nutritional; endocrine; and metabolic disorders (2 sources)Overweight in adulthood with body mass index of 25 or more but less than 30; Translations: [Body mass index (BMI) 28.0-28.9, adult]06-20-2024 EpisodicOther screening for suspected conditions (not mental disorders or infectious disease) (20 sources)Encounter for screening mammogram for malignant neoplasm of breast; Translations: [CT of abdomen abnormal]Onset: 81-16-7450AgrbvxprUbejr upper respiratory disease (20 sources)Allergic rhinitis; Translations: [Allergic rhinitis, unspecified] Onset: 10-20-2017 Resolved: 598048-90-3721VqapoguYzdlssdrhb and visceral atherosclerosis (20 sources)Atherosclerosis of aorta; Translations: [Atherosclerosis of aorta] Onset: 06-08-2017 Resolved: 850002-02-3412JxhiyxqXyfczykzruz and intestinal abscess (20 sources)Primary bacterial peritonitis; Translations: [Spontaneous bacterial peritonitis]Onset: 08-10-2024 Resolved: 051455-79-3899WhvprjoyCorsszas codes; unclassified (20 sources)Sleep apnea; Translations: [Sleep apnea, unspecified]Onset: 04-15-2006 Resolved: 324424-62-0008JrihmdaAcdarugx codes; unclassified (20 sources)Altered mental status; Translations: [Altered mental status, unspecified]Onset: 04-25-2024 Resolved: 778328-92-2105LtqrmhdkMwatltxa codes; unclassified (20 sources)History of abdominal hysterectomy; Translations: [Acquired absence of both cervix and uterus]Onset: 03-07-2019 Resolved: 649765-52-3137OasrvuwyOwfcezina and history of mental health and substance abuse codes (20 sources)Ex-smoker; Translations: [Personal history of nicotine dependence] Onset: 122694-38-5550ZxnqxvuiFockvfnvsv (except in labor) (20 sources)Septic shock; Translations: [Sepsis, unspecified organism]Onset: 06-20-2024 Resolved: 058008-89-7259VrtcpzidTcywujhiojkv (1 source)CONTACT W/AND (SUSP) EXPOS COVID-19; Translations: [CONTACT W/AND (SUSP) EXPOS COVID-19]Onset: 97-00-3027Zvovojkiiibl (20 sources)Onset: 09-08-2023 Resolved: 059383-38-2337Ehhcy infection (20 sources)Disease caused by 2019-nCoV; Translations: [COVID-19]Onset: 06-20-2024 Resolved: 081884-57-5084Ehmlqlgw Results Test NameValueInterpretationReference RangeFacilityLaboratory - Microbiology and Antimicrobial susceptibilityon 08-22-2025S. pyogenes Ag Ql (Throat)Negative Negative, None DetectedJohn J. [facility] Panel Informationon 08-22-2025 Interpretation and review of laboratory resultsNormalCox North HealthcareCNOVon 94-43-7352EDNIDpkhpr Visit (CARINF) MOJGAN PÉREZ ([id number]) 1955 F Date Time Provider Department 08/17/25 4:20 PM JUAN J MENDEZ CARGONZÁLEZ During your visit today, we recorded the [...] underwent extensive evaluation at the [facility], April 2019, after presenting with chest [...] Yes, Claudication:No CONDITIONS: Hypertension: Yes, Heart failure:No, [employer] Functional Classification: Class II, Atrial [...] file Gets together: Not on file Attends tenriism service: Not on file Active member of club or organi (more content not included)...[facility] COMPLETEon 46-01-3418BHN COMPLETEVentricular Rate : 82 BPM Atrial Rate : 82 BPM P-R Interval : 190 ms QRS Duration : 72 ms Q-T Interval : 362 ms QTC Calculation(Bazett) : 422 ms Calculated P [place] : 25 degrees Calculated R [place] : -4 degrees Calculated T [place] : 36 degrees NORMAL SINUS RHYTHM Confirmed by ARNULFO HENDERSON M.D. 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 Overall, no significant change. * * * Final * * * [employer] : [id number] German HospitalAlanine aminotransferase [Enzymatic activity/volume] in Serum or PlasmaOrdered By: Fabiola Marinelli on 88-36-3870QHP [Catalytic activity/Vol]13 U/LNormal7-52[facility] For RehabilitationComment on above: Performed By: #### CMP, FE and TIBC, NERY ####[facility] [address] [place] [address] USAAlbumin [Mass/volume] in Serum or Plasma by Bromocresol green (BCG) dye binding methoOrdered By: Fabiola Berumense on 08-16-2025 Albumin BCG dye [Mass/Vol]3.6 g/dL3.5-5.7FOhioHealth Arthur [facility] Alkaline phosphatase [Enzymatic activity/volume] in Serum or PlasmaOrdered By: Fabiola Marinelli on 30-60-7195RXL [Catalytic activity/Vol]94 U/PUggjru24-656NlhjubslrChildren'S Hospital For RehabilitationComment on above:Performed By: #### CMP, FE and TIBC, NERY ####[address] Aspartate aminotransferase [Enzymatic activity/volume] in Serum or PlasmaOrdered By: Fabiola Yves on 02-44-4604LQT [Catalytic activity/Vol]27 U/CZqglfz76-55 [facility] For RehabilitationComment on above:Performed By: #### CMP, FE and TIBC, NERY ####[place] [address] USABasophils [#/volume] in Blood by Automated countOrdered By: Fabiola Berumense on 76-10-0976Fcnznmhwg (Bld) [#/Vol]0.0 10*3/uLNormal0.0-0.2FOhioHealth Arthur G.H. Bing, MD, Cancer CenterComment on above:Performed By: #### SCAN CBC ####[place] [id number] USABasophils/100 leukocytes in Blood by Automated countOrdered By: Fabiola Berumense on 08-16-2025 Basophils/100 WBC (Bld)0.4 %Normal.[facility] Hospital For RehabilitationComment on above:Performed By: #### SCAN CBC ####[place] [id number] USABilirubin.total [Mass/volume] in Serum or Plasma Ordered By: Fabiola Berumense on 57-79-1069Oecrolmkc [Mass/Vol]0.9 mg/dLNormal0.3-1.0 [facility] For RehabilitationComment on above:Performed By: #### CMP, FE and TIBC, NERY ####[place] [id number] USACalcium [Mass/volume] in Serum or PlasmaOrdered By: Fabiola Yves on 08-16-2025 Calcium [Mass/Vol]9.0 mg/dLNormal8.6-10.3FOhioHealth Arthur G.[facility] Comment on above:Performed By: #### CMP, FE and TIBC, NERY ####[place] [id number] USACarbon dioxide, total [Moles/volume] in Serum or PlasmaOrdered By: Fabiola Yves on 65-72-8195WM0 [Moles/Vol]28.5 mmol/WVrmwaa54.0-31.0Children[facility] Hospital For RehabilitationComment on above:Performed By: #### CMP, FE and TIBC, NERY ####[place] [id number] USAChloride [Moles/volume] in Serum or PlasmaOrdered By: Fabiola Marinelli on 09-69-3298Owcpadkp [Moles/Vol]105 mmol/LNormal 98-107[facility] Hospital For RehabilitationComment on above:Performed By: #### CMP, FE and TIBC, NERY ####[place] [id number] USAComprehensive Metabolic Panelon 48-38-7006Nxdnatz [Mass/Vol]3.6 g/dL Normal3.5-5.7The Unc Health Appalachian Physician GroupComment on above:Performed By: #### CMP, FE and TIBC, NERY ####[place] [id number] USACreatinine Clr Calc Vdnhykfs48.18NormalThe Unc Health Appalachian Physician GroupComment on above:Performed By: #### CMP, FE and TIBC, NERY ####[place] [id number] [place] GFR/1.73 sq M.predicted MDRD (S/P/Bld) [Vol rate/Area]mL/min/{1.73_m2}NormalThe Unc Health Appalachian Physician GroupComment on above:Performed By: #### CMP, FE and TIBC, NERY ####[address] [address] [facility] Creatinine [Mass/volume] in Serum or PlasmaOrdered By: Fabiola Marinelli on 08-16-2025 Creatinine [Mass/Vol]0.99 mg/dLNormal0.60-1.20[facility] Comment on above:Performed By: #### CMP, FE and TIBC, NERY ####[place] [address] USAEosinophils [#/volume] in Blood by Automated countOrdered By: Fabiola Marinelli on 03-36-0931Cyhcjrxqobf (Bld) [#/Vol]0.6 10*3/uLHigh0.0-0.45[facility] For RehabilitationComment on above: Performed By: #### SCAN CBC ####[place] [address] USAEosinophils/100 leukocytes in Blood by Automated countOrdered By: Fabiola Marinelli on 50-60-2442Jesmdjipbgh/100 WBC (Bld)33.6 %Normal. [facility] For RehabilitationComment on above:Performed By: #### SCAN CBC ####[address] Erythrocyte distribution width [Ratio] by Automated countOrdered By: Fabiola Marinelli on 50-01-5831Qtypthmzozx distribution width (RBC) [Ratio]15.3 %Eswldk97.9-15.3 [facility] For RehabilitationComment on above:Performed By: #### SCAN CBC ####[place] [id number] [facility] Erythrocyte morphology finding [Identifier] in BloodOrdered By: Fabiola Marinelli on 38-39-2685HFE morphology finding Nom (Bld)N/[facility] Erythrocytes [#/volume] in Blood by Automated countOrdered By: Fabiola Marinelli on 13-37-3188FGB (Bld) [#/Vol]3.45 10*6/uLLow3.60-5.00[facility] For RehabilitationComment on above:Performed By: #### SCAN CBC ####[place] [id number] USAFerritin [Mass/volume] in Serum or PlasmaOrdered By: Fabiola Marinelli on 44-07-4803Fdhksdsh [Mass/Vol]117.1 ng/mL Ftdujp01.0-306.8[facility] For RehabilitationComment on above:Result Comment: PERFORMED BY:[place] [address] [place], [place] [phone] MEDICAL DIRECTORARIEL BRUCE M.D.Performed By: #### CMP, FE and TIBC, NERY ####[address] [address] USAGlomerular filtration rate [Volume Rate/Area] in Serum, Plasma or Blood by CreatinineOrdered By: Fabiola Marinelli on 08-16-2025 Glomerular filtration rate [Volume Rate/Area] in Serum, Plasma or Blood by Creatinine> 60.0 mL/MinChildren'S Hospital For RehabilitationGlucose [Mass/volume] in Serum or PlasmaOrdered By: Fabiola Marinelli on 73-41-6633Fwecovc [Mass/Vol]109 mg/dL Euio91-158ZnphgjtwaChildren'S Hospital For RehabilitationComment on above:Result Comment: Random Glucose Reference Range is dependent on time and content of last meal. Glucose of more than 200 mg/dL in a nonstressed, ambulatory subject supports the diagnosis of Diabetes Mellitus. ADA recommended reference rangePerformed By: #### CMP, FE and TIBC, NERY ####[address] [address] USAHematocrit [Volume Fraction] of Blood by Automated countOrdered By: Fabiola Marinelli on 01-82-5246Peiweyglab (Bld) [Volume fraction]32.6 % Low34.0-46.4FOhioHealth Arthur G.H. Bing, MD, Cancer CenterComment on above:Performed By: #### SCAN CBC ####[address] [address] USAHemoglobin [Mass/volume] in BloodOrdered By: Fabiola Marinelli on 08-16-2025 Hemoglobin (Bld) [Mass/Vol]11.2 g/dLLow11.8-15.4FOhioHealth Arthur G.H. Bing, MD, Cancer CenterComment on above:Performed By: #### SCAN CBC ####[address] [address] USAIron [Mass/volume] in Serum or PlasmaOrdered By: Fabiola Marinelli on 64-30-0616Ybko [Mass/Vol]70 ug/xONfhcly95-612 [facility] RehabilitationComment on above:Performed By: #### CMP, FE and TIBC, NERY ####[address] [address] USAIron and TIBC Profileon 08-16-2025% Iron Fioxgugctz82.9 %Gcjnna46-81Ief [facility]alachian Physician GroupComment on above:Performed By: #### CMP, FE and TIBC, NERY ####[address] [address] [place] Total Iron Binding Hhmzbxru817 ug/oHGgrvwr901-707Rcv [facility] Comment on above:Performed By: #### CMP, FE and TIBC, NERY ####[address] [address] USALeukocytes [#/volume] corrected for nucleated erythrocytes in Blood by Automated counOrdered By: Fabiola Marinelli on 87-69-2683MMU corrected for nucl RBC Auto (Bld) [#/Vol]1.8 10*3/uLLow 3.8-11.6FOhioHealth Arthur G.H. Bing, MD, Cancer CenterLeukocytes [#/volume] in Blood by Automated countOrdered By: Fabiola Marinelli on 98-21-9337XEF (Bld) [#/Vol]1.8 10*3/uL Low3.8-11.6FOhioHealth Arthur G.H. Bing, MD, Cancer CenterComment on above:Performed By: #### SCAN CBC ####[address] [address] USALymphocytes [#/volume] in Blood by Automated countOrdered By: Fabiola Berumense on 15-70-2569Geuwvbtjxtc (Bld) [#/Vol]0.3 10*3/uLLow1.00-4.8[facility] RehabilitationComment on above:Performed By: #### SCAN CBC ####[address] [address] USALymphocytes/100 leukocytes in Blood by Automated countOrdered By: Fabiola Yves on 08-16-2025 Lymphocytes/100 WBC (Bld)16.6 %Normal.[facility] Hospital For RehabilitationComment on above:Performed By: #### SCAN CBC ####[address] [address] [facility] [Entitic mass] by Automated countOrdered By: Fabiola Marinelli on 97-23-8779IIO (RBC) [Entitic mass]32.4 xuNhxmuc24.7-34.3 [facility] For RehabilitationComment on above:Performed By: #### SCAN CBC ####[place] [address] [facility] Auto (RBC) [Mass/Vol]Ordered By: Fabiola Marinelli on 64-67-1151ADCP (RBC) [Mass/Vol] 34.4 g/dL32.0-35.0[facility] CenterV [Entitic volume] by Automated countOrdered By: Fabiola Marinelli on 55-85-7209RZI (RBC) [Entitic vol]94.4 fL Nrqaul81-447WdxcriplrChildren'S Hospital For RehabilitationComment on above:Performed By: #### SCAN CBC ####[place] [id number] USAMagnesiumon 33-37-0667Vwzjlorvpliuzo and review of laboratory resultsAbnormal NOMS HealthcareMagnesium [Mass/Vol]1.7 mg/dLLow1.9 - 2.7 mg/dLNOMS Healthcare NOMS HealthcareMagnesium [Mass/volume] in Serum or PlasmaOrdered By: Fabiola Marinelli on 06-29-4277Hkjejulsw [Mass/Vol]1.7 mg/dLLow1.9-2.7FOhioHealth Arthur G.H. Bing, MD, Cancer CenterComment on above:Result Comment: PERFORMED BY:[place] [address] [place] [place], [place] [phone] MEDICAL BARBIE BRUCE M.D.Performed By: #### MG ####[facility] Fqs[address] [place] [address] USAMonocytes [#/volume] in Blood by Automated countOrdered By: Fabiola Marinelli on 84-80-5404Vuiznocyw (Bld) [#/Vol]0.2 10*3/uLNormal0.0-0.8[facility] RehabilitationComment on above:Performed By: #### SCAN CBC ####[place] [address] [place] [address] USAMonocytes/100 leukocytes in Blood by Automated countOrdered By: Fabiola Marinelli on 97-20-2835Vamfrrzqf/100 WBC (Bld)13.4 %Normal.[facility] For RehabilitationComment on above:Performed By: #### SCAN CBC ####[place] [address] [place] [id number] USANeutrophils [#/volume] in Blood by Automated countOrdered By: Fabiola Marinelli on 08-16-2025 Neutrophils (Bld) [#/Vol]0.7 10*3/uLLow1.8-7.7FOhioHealth Arthur G.[facility]. [facility], [facility], Cancer Center Comment on above:Performed By: #### SCAN CBC ####[address] [address] USANeutrophils/100 leukocytes in Blood by Automated countOrdered By: Fabiola Marinelli on 31-20-5165Cfplfzgrhgs/100 WBC (Bld)36.0 %Normal.[facility] For RehabilitationComment on above:Performed By: #### SCAN CBC ####[place] [address] USANo Panel InformationOrdered By: Fabiola Marinelli on .18FOhioHealth Arthur G.H. Bing, MD, Cancer CenterNucleated erythrocytes [Presence] in Blood by Automated countOrdered By: Fabiola Marinelli on 38-80-6829Rfksonrzu RBC Auto Ql (Bld)0.0 /100{WBC} 0-0.5FOhioHealth Arthur G.H. Bing, MD, Cancer CenterOvalocytes [Presence] in Blood by Light microscopyOrdered By: Fabiola Marinelli on 88-53-2733Hacxrffcho LM Ql (Bld)Slight [facility] RehabilitationPlatelet adequacy [Presence] in Blood by Light microscopyOrdered By: Fabiola Marinelli on 87-78-6970Xuxmxiajz LM Ql (Bld)Decreased NormalChildren'S Hospital For RehabilitationPlatelet mean volume [Entitic volume] in Blood by Automated countOrdered By: Fabiola Yves on 89-92-5207Foekdyli mean volume (Bld) [Entitic vol]7.9 fLNormal6.3-10.7FOhioHealth Arthur G.H. Bing, MD, Cancer CenterComment on above:Performed By: #### SCAN CBC ####[place] [address] USAPlatelet morphology finding [Identifier] in BloodOrdered By: Fabiola Yves on 96-38-0180Tokrkgiw morphology finding Nom (Bld) NormalNormWood County HospitalPlatelets [#/volume] in Blood by Automated countOrdered By: Fabiola Yves on 20-87-0799Bxjhbksdp (Bld) [#/Vol]44 10*3/fBDla469-332GyxcexdxyChildren'S Hospital For RehabilitationComment on above:Performed By: #### SCAN CBC ####[place] [address] USAPotassium [Moles/volume] in Serum or PlasmaOrdered By: Fabiola Marinelli on 83-65-2049Jyjwwkfpm [Moles/Vol]4.1 mmol/LNormal3.5-5.1FOhioHealth Arthur G.H. Bing, MD, Cancer CenterComment on above:Performed By: #### CMP, FE and TIBC, NERY ####[place] [address] USAProtein [Mass/volume] in Serum or PlasmaOrdered By: Fabiola Marinelli on 69-53-3069Mqrxuzp [Mass/Vol]5.5 g/dL Low6.4-8.9[facility] RehabilitationComment on above:Performed By: #### CMP, FE and TIBC, NERY ####[place] [address] USAScan and CBCon 07-76-0600Mzid Corpuscular HGB Conc 34.4 g/zTVkkzaz36.0-35.0The [facility] Appalachian Physician GroupComment on above:Performed By: #### SCAN CBC ####[place] [address] USANRBC%0.0 /100{WBC}Normal0-0.5The [facility] Appalachian Physician GroupComment on above:Performed By: #### SCAN CBC ####[address] [address] USAOvalocytesSlightNoCritical access hospital Physician Group Comment on above:Performed By: #### SCAN CBC ####[address] [address] USAPlatelet EstimateDecreasedNormalNormal The [facility] Appalachian Physician GroupComment on above:Performed By: #### SCAN CBC ####[address] [address] [place] Platelet MorphologyNormalNormalSt. Vincent's [facility] Physician [facility] General HospitalComment on above:Result Comment: PERFORMED BY:[address] TSERINGRobertoErnaMOWEAQUA, [place] [phone] MEDICAL DIRECTORARIEL BRUCE M.D.Performed By: #### SCAN CBC ####[address] [address] USAWhite Blood Count1.8 [CFU]/mLLow3.8-11.6The [facility] Physician [facility] General HospitalComment on above:Performed By: #### SCAN CBC ####[place] [id number] USASerum globulin measurement by calculation (mass/volume)Ordered By: Fabiola Marinelli on 88-06-7661Jzicbdcb (S) [Mass/Vol]1.9 g/dLNoLutheran Hospital Comment on above:Performed By: #### CMP, FE and TIBC, NERY ####[address] [address] USASerum or plasma albumin/globulin mass ratioOrdered By: Fabiola Marinelli on 19-14-2001Dqtsdrt/Globulin [Mass ratio]1.9 {ratio}Doctors HospitalComment on above: Performed By: #### CMP, FE and TIBC, NERY ####[address] [address] USASerum or plasma anion gap determinationOrdered By: Fabiola Marinelli on 16-11-1656Dylfl gap [Moles/Vol]8.6 mmol/LNormal6.0-15.0 [facility] RehabilitationComment on above:Performed By: #### CMP, FE and TIBC, NERY ####[place] [address] USASerum or plasma iron binding capacity measurement (mass/volume)Ordered By: Fabiola Marinelli on 26-62-2344Tdef binding capacity [Mass/Vol]293 ug/yH329-999DnljnwxgoSumma Healtherum or plasma iron saturation measurement (mass fraction)Ordered By: Fabiola Marinelli on 83-62-2398Cjdh saturation [Mass fraction]23.9 %20-50Summa Healthodium [Moles/volume] in Serum or Plasma Ordered By: Fabiola Marinelli on 85-30-3690Hkkujw [Moles/Vol]138 mmol/QOzzybx274-422 [facility] RehabilitationComment on above:Performed By: #### CMP, FE and TIBC, NERY ####[place] [address] USATransferrin [Mass/volume] in Serum or PlasmaOrdered By: Fabiola Marinelli on 96-54-9268Jhibkaikblt [Mass/Vol]209 mg/sCRboutw119-079ObvoketopChildren'S Hospital For RehabilitationComment on above:Performed By: #### CMP, FE and TIBC, NERY ####[address] [address] USAUrea nitrogen [Mass/volume] in Serum or PlasmaOrdered By: Fabiola Marinelli on 64-13-5062Xxje nitrogen [Mass/Vol]17 mg/dLNormal7-25[facility] RehabilitationComment on above: Performed By: #### CMP, FE and TIBC, NERY ####[place] [address] USAAlanine aminotransferase [Enzymatic activity/volume] in Serum or PlasmaOrdered By: Fabiola Marinelli on 84-23-5468FCH [Catalytic activity/Vol]12 U/LNormal7-52[facility] RehabilitationComment on above:Performed By: #### CMP ####[place] [address] USAAlbumin [Mass/volume] in Serum or Plasma by Bromocresol green (BCG) dye binding methoOrdered By: Fabiola Marinelli on 08-09-2025 Albumin BCG dye [Mass/Vol]3.6 g/dL3.5-5.7FOhioHealth Arthur G.H. Bing, MD, Cancer Center Alkaline phosphatase [Enzymatic activity/volume] in Serum or PlasmaOrdered By: Fabiola Marinelli on 32-35-2009MHF [Catalytic activity/Vol]102 U/NTqiyng86-857KstldnkocChildren'S Hospital For RehabilitationComment on above:Performed By: #### CMP ####[place] [address] USAAnisocytosis [Presence] in Blood by Light microscopyOrdered By: Fabiola Marinelli on 08-09-2025 Anisocytosis Ql (Bld)SlightNormalChildren'S Hospital For RehabilitationComment on above:Performed By: #### SCAN CBC ####[place] [address] USAAspartate aminotransferase [Enzymatic activity/volume] in Serum or PlasmaOrdered By: Fabiola Marinelli on 89-45-5588KIN [Catalytic activity/Vol]26 U/XTvkkmq86-02JajmplvlgChildren'S Hospital For Rehabilitation Comment on above:Performed By: #### CMP ####[place] [address] USABasophils [#/volume] in Blood by Automated countOrdered By: Fabiola Marinelli on 01-33-3075Solckigqm (Bld) [#/Vol]0.0 10*3/uLNormal 0.0-0.2FOhioHealth Arthur G.H. Bing, MD, Cancer CenterComment on above:Performed By: #### SCAN CBC ####[place] [address] [place] Basophils/100 leukocytes in Blood by Automated countOrdered By: Fabiola Marinelli on 30-07-5679Bdipjuvvn/100 WBC (Bld)0.5 %Normal.[facility] Comment on above:Performed By: #### SCAN CBC ####[address] [place] [address] USABilirubin.total [Mass/volume] in Serum or PlasmaOrdered By: Fabiola Marinelli on 27-99-8472Btdqincdo [Mass/Vol]1.0 mg/dLNormal 0.3-1.0[facility] RehabilitationComment on above:Performed By: #### CMP ####[address] [address] USACalcium [Mass/volume] in Serum or PlasmaOrdered By: Fabiola Marinelli on 95-74-9438Vhirbir [Mass/Vol]8.7 mg/dLNormal8.6-10.3FOhioHealth Arthur G.H. Bing, MD, Cancer CenterComment on above:Performed By: #### CMP ####[place] [address] USACarbon dioxide, total [Moles/volume] in Serum or PlasmaOrdered By: Fabiola Marinelli on 92-76-6843AK6 [Moles/Vol]27.7 mmol/LNormal 21.0-31.0[facility] For RehabilitationComment on above:Performed By: #### CMP ####[address] [address] [place] Chloride [Moles/volume] in Serum or PlasmaOrdered By: Fabiola Marinelli on 08-09-2025 Chloride [Moles/Vol]102 mmol/NGmqkjq90-844RpvbgfoebChildren'S Hospital For Rehabilitation Comment on above:Performed By: #### CMP ####[address] [address] USAComprehensive Metabolic Panelon 08-09-2025 Albumin [Mass/Vol]3.6 g/dLNormal3.5-5.7The [facility] Appalachian Physician GroupComment on above:Performed By: #### CMP ####[place] [address] USACreatinine Clr Calc Korcdutg19.97NormalThe Un[facility] Health Appalachian Physician GroupComment on above:Result Comment: PERFORMED BY:[place] [address] [address] [place], [place] [phone] MEDICAL DIRECTORARIEL BRUCE M.D.Performed By: #### CMP ####[facility] [address] [place] [address] USAGFR/1.73 sq M.predicted MDRD (S/P/Bld) [Vol rate/Area]58.236 mL/min/{1.73_m2}NormalThe [facility] Appalachian Physician GroupComment on above:Performed By: #### CMP ####[facility] [address] [place] [address] USAComprehensive metabolic panelon 49-65-4601Kmbysac [Mass/Vol]3.6 g/dL3.5 - 5.7 g/dLNOAR Healthcare Albumin/Globulin [Mass ratio]1.7 {ratio}[facility] HealthcareALP [Catalytic activity/Vol]102 U/L34 - 104 U/LNOMS HealthcareALT [Catalytic activity/Vol]12 U/L7 - 52 U/LNOMS HealthcareAnion gap [Moles/Vol]9.3 mmol/L6.0 - 15.0NOAR HealthcareAST [Catalytic activity/Vol]26 U/L13 - 39 U/LNOMS HealthcareBilirubin [Mass/Vol]1 mg/dL0.3 - 1.0 mg/dLNOAR HealthcareCalcium [Mass/Vol]8.7 mg/dL8.6 - 10.3 mg/dLNOAR HealthcareChloride [Moles/Vol]102 mmol/L98 - 107 mmol/LNOMS HealthcareCO2 [Moles/Vol]27.7 mmol/L21.0 - 31.0 mmol/LNOMS HealthcareCreatinine (U) [Mass/Vol]1.05 mg/dL0.60 - 1.20 mg/dLNOAR HealthcareCREATININE CLR CALC ETXYNCRI00.97NOMS HealthcareGFR/1.73 sq M.predicted MDRD (S/P/Bld) [Vol rate/Area]58.236 mL/min/{1.73_m2}NOMS HealthcareGlobulin (S) [Mass/Vol]2.1 g/dL NOM HealthcareGlucose [Mass/Vol]112 mg/xMEjel00 - 100 mg/dLNOAR Healthcare Comment on above:Random Glucose Reference Range is dependent on time and content of last meal. Glucose of more than 200 mg/dL in a nonstressed, ambulatory subject supports the diagnosis of Diabetes Mellitus. ADA recommended reference range Interpretation and review of laboratory resultsAbnormalNOMS HealthcarePotassium [Moles/Vol]4 mmol/L3.5 - 5.1 mmol/LNOMS HealthcareProtein [Mass/Vol]5.7 g/dLLow 6.4 - 8.9 g/dLNOMS HealthcareSodium [Moles/Vol]135 mmol/ORss092 - 145 mmol/LNOMS HealthcareUrea nitrogen [Mass/Vol]18 mg/dL7 - 25 mg/dLNOMS HealthcareNOMS HealthcareCreatinine [Mass/volume] in Serum or PlasmaOrdered By: Fabiola Marinelli on 96-51-5306Zjfgzxlsgt [Mass/Vol]1.05 mg/dLNormal0.60-1.20[facility] For RehabilitationComment on above:Performed By: #### CMP ####[place] [address] USAEosinophils [#/volume] in Blood by Automated countOrdered By: Fabiola Marinelli on 17-80-4202Qifsqzevpcl (Bld) [#/Vol]0.8 10*3/uLHigh0.0-0.45[facility] RehabilitationComment on above: Performed By: #### SCAN CBC ####[place] [address] USAEosinophils/100 leukocytes in Blood by Automated countOrdered By: Fabiola Marinelli on 40-60-7531Bknzykrniwe/100 WBC (Bld)34.0 %Normal. [facility] For RehabilitationComment on above:Performed By: #### SCAN CBC ####[place] [address] [facility] Erythrocyte distribution width [Ratio] by Automated countOrdered By: Fabiola Marinelli on 75-99-3459Fhezoiqwmna distribution width (RBC) [Ratio]15.3 %Lbcync62.9-15.3 [facility] RehabilitationComment on above:Performed By: #### SCAN CBC ####[place] [address] [facility] Erythrocyte morphology finding [Identifier] in BloodOrdered By: Fabiola Marinelli on 88-26-3900BEP morphology finding Nom (Bld)N/AFOhioHealth Arthur G.H. Bing, MD, Cancer Center Erythrocytes [#/volume] in Blood by Automated countOrdered By: Fabiola Marinelli on 52-20-0142DNH (Bld) [#/Vol]3.37 10*6/uLLow3.60-5.00[facility] For RehabilitationComment on above:Performed By: #### SCAN CBC ####[place] [address] USAGlomerular filtration rate [Volume Rate/Area] in Serum, Plasma or Blood by CreatinineOrdered By: Fabiola Berumense on 90-25-9727Hkxxxfmdtg filtration rate [Volume Rate/Area] in Serum, Plasma or Blood by Tmzripipsx47.236 mL/MinChildren'S Hospital For RehabilitationGlucose [Mass/volume] in Serum or PlasmaOrdered By: Fabiola Yves on 37-93-9316Aeqppqq [Mass/Vol]112 mg/bIRpfg98-676NzfbyyvhoChildren'S Hospital For RehabilitationComment on above: Result Comment: Random Glucose Reference Range is dependent on time and content of last meal. Glucose of more than 200 mg/dL in a nonstressed, ambulatory subject supports the diagnosis of Diabetes Mellitus. ADA recommended reference rangePerformed By: #### CMP ####[place] [id number] USAHematocrit [Volume Fraction] of Blood by Automated countOrdered By: Fabiola Berumense on 05-13-8381Iqbtvykhym (Bld) [Volume fraction]32.5 % Low34.0-46.4FOhioHealth Arthur G.H. Bing, MD, Cancer CenterComment on above:Performed By: #### SCAN CBC ####[address] [address] USAHemoglobin [Mass/volume] in BloodOrdered By: Fabiola Berumense on 08-09-2025 Hemoglobin (Bld) [Mass/Vol]11.1 g/dLLow11.8-15.4FOhioHealth Arthur G.H. Bing, MD, Cancer CenterComment on above:Performed By: #### SCAN CBC ####[place] [address] USALeukocytes [#/volume] corrected for nucleated erythrocytes in Blood by Automated counOrdered By: Fabiola Marinelli on 35-65-9477EGG corrected for nucl RBC Auto (Bld) [#/Vol]2.3 10*3/uLLow 3.8-11.6FOhioHealth Arthur G.H. Bing, MD, Cancer CenterLeukocytes [#/volume] in Blood by Automated countOrdered By: Fabiola Marinelli on 47-34-4311TWB (Bld) [#/Vol]2.3 10*3/uL Low3.8-11.6FOhioHealth Arthur G.H. Bing, MD, Cancer CenterComment on above:Performed By: #### SCAN CBC ####[facility] [address] [place] [address] USALymphocytes [#/volume] in Blood by Automated countOrdered By: Fabiola Marinelli on 17-36-8212Vzntfluaoxc (Bld) [#/Vol]0.4 10*3/uLLow1.00-4.8[facility] RehabilitationComment on above:Performed By: #### SCAN CBC ####[facility] [address] [place] [address] USALymphocytes/100 leukocytes in Blood by Automated countOrdered By: Fabiola Marinelli on 08-09-2025 Lymphocytes/100 WBC (Bld)16.3 %Normal.[facility] For RehabilitationComment on above:Performed By: #### SCAN CBC ####[address] [address] [facility] [Entitic mass] by Automated countOrdered By: Fabiola Marinelli on 83-90-9942IWV (RBC) [Entitic mass]32.9 puYbfqqx57.7-34.3 [facility] RehabilitationComment on above:Performed By: #### SCAN CBC ####[address] [address] [facility] Auto (RBC) [Mass/Vol]Ordered By: Fabiola Mrainelli on 30-12-7211YKNB (RBC) [Mass/Vol] 34.1 g/dL32.0-35.0[facility] For RehabilitationMCV [Entitic volume] by Automated countOrdered By: Fabiola Marinelli on 87-94-3038NVO (RBC) [Entitic vol]96.4 fL Knhcqm72-169GpdxdmilqChildren'S Hospital For RehabilitationComment on above:Performed By: #### SCAN CBC ####[place] [address] USAMonocytes [#/volume] in Blood by Automated countOrdered By: Fabiola Marinelli on 03-00-8285Fjfttwkzd (Bld) [#/Vol]0.4 10*3/uLNormal0.0-0.8[facility] For RehabilitationComment on above:Performed By: #### SCAN CBC ####[address] [address] USAMonocytes/100 leukocytes in Blood by Automated countOrdered By: Fabiola Marinelli on 08-09-2025 Monocytes/100 WBC (Bld)17.8 %Normal.[facility] Hospital For RehabilitationComment on above:Performed By: #### SCAN CBC ####[place] [address] USANeutrophils [#/volume] in Blood by Automated count Ordered By: Fabiola Marinelli on 67-35-1718Nfzcxgikegf (Bld) [#/Vol]0.7 10*3/uLLow 1.8-7.7FOhioHealth Arthur G.H. Bing, MD, Cancer CenterComment on above:Performed By: #### SCAN CBC ####[place] [address] [place] Neutrophils/100 leukocytes in Blood by Automated countOrdered By: Fabiola Marinelli on 38-44-7425Fiuiikhhtym/100 WBC (Bld)31.4 %Normal.[facility] For RehabilitationComment on above:Performed By: #### SCAN CBC ####[place] [address] USANo Panel InformationOrdered By: Fabiola Marinelli on 82-53-541608.97[facility] For RehabilitationNucleated erythrocytes [Presence] in Blood by Automated countOrdered By: Fabiola Marinelli on 93-35-8344Wjzxynkua RBC Auto Ql (Bld)0.2 /100{WBC}0-0.5FOhioHealth Arthur G.H. Bing, MD, Cancer CenterOvalocytes [Presence] in Blood by Light microscopyOrdered By: Fabiola Mrainelli on 68-20-4563Tzexwmmbdw LM Ql (Bld)[facility] Platelet adequacy [Presence] in Blood by Light microscopyOrdered By: Fabiola Marinelli on 17-33-6707Mazkscbbm LM Ql (Bld)DecreasedNoLutheran HospitalPlatelet mean volume [Entitic volume] in Blood by Automated countOrdered By: Fabiola Marinelli on 83-70-6457Hhfjavfk mean volume (Bld) [Entitic vol]9.2 fLNormal 6.3-10.7FOhioHealth Arthur G.H. Bing, MD, Cancer CenterComment on above:Performed By: #### SCAN CBC ####[place] [address] [place] [id number] USAPlatelet morphology finding [Identifier] in BloodOrdered By: Fabiola Marinelli on 59-34-6614Krxgkdxb morphology finding Nom (Bld)NormalNoLutheran HospitalPlatelets [#/volume] in Blood by Automated countOrdered By: Fabiola Marinelli on 36-30-9623Vtbznexep (Bld) [#/Vol]41 10*3/dACsk037-622GaxtkrkmkChildren'S Hospital For RehabilitationComment on above:Performed By: #### SCAN CBC ####[place] [id number] USAPoikilocytosis [Presence] in Blood by Light microscopyOrdered By: Fabiola Marinelli on 08-09-2025 Poikilocytosis LM Ql (Bld)[facility] Children's HospitalPotassium [Moles/volume] in Serum or PlasmaOrdered By: Fabiola Marinelli on 77-85-3885Thhtsngvm [Moles/Vol]4.0 mmol/LNormal3.5-5.1FOhioHealth Arthur G.H. Bing, MD, Cancer CenterComment on above:Performed By: #### CMP ####[place] [id number] USAProtein [Mass/volume] in Serum or PlasmaOrdered By: Fabiola Marinelli on 21-41-1339Prqmdjk [Mass/Vol]5.7 g/dLLow6.4-8.9Children[facility] Hospital For RehabilitationComment on above:Performed By: #### CMP ####[address] [address] USAScan and CBCon 60-85-2862Cifj Corpuscular HGB Conc34.1 g/aKUzignb48.0-35.0The [facility]alachian Physician GroupComment on above:Performed By: #### SCAN CBC ####[address] [address] USANRBC%0.2 /100{WBC}Normal0-0.5The [facility]alachian Physician GroupComment on above:Performed By: #### SCAN CBC ####[address] [address] USAOvalocytesSlight NormalTrinity Community Hospital Physician GroupComment on above:Performed By: #### SCAN CBC ####[address] [address] [place] Platelet EstimateDecreasedNormalNoCritical access hospital Physician [facility] HospitalComment on above:Performed By: #### SCAN CBC ####[address] [address] USAPlatelet MorphologyNormalNormalNoCritical access hospital Physician [facility] HospitalComment on above:Result Comment: PERFORMED BY:[address] [place], [place] [phone] MEDICAL DIRECTORARIEL BRUCE M.D.Performed By: #### SCAN CBC ####[address] [address] USAPoikilocytosisSlightNormShorePoint Health Punta Gord[place] Physician [facility] HospitalComment on above:Performed By: #### SCAN CBC ####[address] [address] USAWhite Blood Count2.3 [CFU]/mLLow3.8-11.6The [facility] Physician [facility] HospitalComment on above: Performed By: #### SCAN CBC ####[address] [address] USASerum globulin measurement by calculation (mass/volume)Ordered By: Fabiola Marinelli on 76-64-6937Byqevnnj (S) [Mass/Vol]2.1 g/dL Doctors HospitalComment on above:Performed By: #### CMP ####[address] [address] USASerum or plasma albumin/globulin mass ratioOrdered By: Fabiola Marinelli on 08-09-2025 Albumin/Globulin [Mass ratio]1.7 {ratio}[facility] Comment on above:Performed By: #### CMP ####[address] [address] USASerum or plasma anion gap determinationOrdered By: Fabiola Marinelli on 01-27-1280Petzk gap [Moles/Vol]9.3 mmol/LNormal6.0-15.0 [facility] For RehabilitationComment on above:Performed By: #### CMP ####[address] [address] USASodium [Moles/volume] in Serum or PlasmaOrdered By: Fabiola Marinelli on 08-93-2674Ivmnbz [Moles/Vol]135 mmol/NGtn780-163ThjuprsfrChildren'S Hospital For RehabilitationComment on above:Performed By: #### CMP ####[address] [address] USAUrea nitrogen [Mass/volume] in Serum or Plasma Ordered By: Fabiola Marinelli on 65-38-8771Xysr nitrogen [Mass/Vol]18 mg/dLNormal7-25 [facility] For RehabilitationComment on above:Performed By: #### CMP ####[address] [address] USACopper, serumon 40-58-2016PIVHYO304 ug/dL80 - 158 ug/dLNOAR HealthcareComment on above: This test was developed and its performance characteristics determined by [employer]. It has not been cleared or approved by the Food and Drug Administration. Detection Limit = 5 Performed at: [address] [id number] Door Glass Installer: Maxine Briones MD, Phone: [phone] NOMS HealthcareIMMUNOGLOBULINS A/E/G/M, QN ([facility])on 25-78-3038XHIRJCGFWQDXZB A, SERUMmg/dL87 - 352 mg/dLNOMS HealthcareComment on above:Result confirmed on concentration.IMMUNOGLOBULIN E6 - 495NOMS HealthcareComment on above:Performed at: [address] [id number] Door Glass Installer: Lang Knight PhD, Phone: [phone] Performed at: [address] [id number] Door Glass Installer: Maxine Briones MD, Phone: [phone] IMMUNOGLOBULIN G770 mg/dL586 - 1602 mg/dLNOMS HealthcareIMMUNOGLOBULIN M, SERUM mg/dL26 - 217 mg/dLNOMS HealthcareComment on above:Result confirmed on concentration.[facility] HealthcareCeruloplasminon 12-16-8618HSRRWICBKPRRD91.4 mg/dL 19.0 - 39.0 mg/dLNOMS HealthcareComment on above:Performed at: [address] [id number] Door Glass Installer: Lang Knight PhD, Phone: [phone] [facility] HealthcareCeruloplasminon 70-65-1783Ppppxdjnwxezf48.4 mg/yTAqikfn40.0-39.0 The [facility]ian Physician GroupComment on above:Result Comment: Performed at: [address] [id number] Door Glass Installer: Lang Knight PhD, Phone: [phone] BY:[address], [place] [phone] MEDICAL DIRECTORARIEL BRUCE M.D.Performed By: #### CERULOP ####[facility] ,Comprehensive Metabolic Panelon 20-57-9799Kaeichc [Mass/Vol]3.6 g/dLNormal3.5-5.7The [facility] Physician GroupComment on above:Performed By: #### NERY, SCAN CBC, FOL, B12, FE and TIBC, CMP ####[facility] [address] USAAlbumin/Globulin [Mass ratio]1.6 {ratio}NormalThe [facility] Appalachian Physician GroupComment on above:Performed By: #### NERY, SCAN CBC, FOL, B12, FE and TIBC, CMP ####[place] [address] USAALP [Catalytic activity/Vol]99 U/QJibdms53-446 The [facility] Physician GroupComment on above:Performed By: #### NERY, SCAN CBC, FOL, B12, FE and TIBC, CMP ####[place] [address] USAALT [Catalytic activity/Vol]12 U/LNormal7-52The [facility] Physician GroupComment on above:Performed By: #### NERY, SCAN CBC, FOL, B12, FE and TIBC, CMP ####[place] [address] USAAnion gap [Moles/Vol]7.2 mmol/LNormal6.0-15.0The [facility] Physician GroupComment on above:Performed By: #### NERY, SCAN CBC, FOL, B12, FE and TIBC, CMP ####[place] [address] USAAST [Catalytic activity/Vol]26 U/QIgxlcw10-46Oku [facility] Physician GroupComment on above:Performed By: #### NERY, SCAN CBC, FOL, B12, FE and TIBC, CMP ####[place] [address] USABilirubin [Mass/Vol]0.9 mg/dLNormal0.3-1.0The [facility] Physician GroupComment on above:Performed By: #### NERY, SCAN CBC, FOL, B12, FE and TIBC, CMP ####[place] [address] USACalcium [Mass/Vol]8.7 mg/dLNormal8.6-10.3The [facility] Physician GroupComment on above:Performed By: #### NERY, SCAN CBC, FOL, B12, FE and TIBC, CMP ####[place] [address] USAChloride [Moles/Vol]107 mmol/EBldtng83-092Hkw [facility] Physician [facility] HospitalComment on above:Performed By: #### NERY, SCAN CBC, FOL, B12, FE and TIBC, CMP ####[place] [address] USACO2 [Moles/Vol]28.1 mmol/XUqujrp28.0-31.0The [facility] Physician GroupComment on above:Performed By: #### NERY, SCAN CBC, FOL, B12, FE and TIBC, CMP ####[place] [address] USACreatinine [Mass/Vol]0.95 mg/dLNormal0.60-1.20The [facility] Physician GroupComment on above:Performed By: #### NERY, SCAN CBC, FOL, B12, FE and TIBC, CMP ####[place] [address] USACreatinine Clr Calc Epjdmygq43.54NormMiddletown Hospitale [facility] Physician GroupComment on above:Performed By: #### NERY, SCAN CBC, FOL, B12, FE and TIBC, CMP ####[place] [address] USAGFR/1.73 sq M.predicted MDRD (S/P/Bld) [Vol rate/Area]mL/min/{1.73_m2} NormalThe [facility]alachian Physician GroupComment on above:Performed By: #### NERY, SCAN CBC, FOL, B12, FE and TIBC, CMP ####[place] [address] USAGlobulin (S) [Mass/Vol]2.2 g/dLSt. Vincent's Medical Center [facility] Physician [facility] HospitalComment on above:Performed By: #### NERY, SCAN CBC, FOL, B12, FE and TIBC, CMP ####[place] [address] USAGlucose [Mass/Vol]99 mg/kQZkasxk11-820Oqd [facility] Comment on above:Result Comment: Random Glucose Reference Range is dependent on time and content of last meal. Glucose of more than 200 mg/dL in a nonstressed, ambulatory subject supports the diagnosis of Diabetes Mellitus. ADA recommended reference rangePerformed By: #### NERY, SCAN CBC, FOL, B12, FE and TIBC, CMP ####[address] Potassium [Moles/Vol]4.3 mmol/LNormal3.5-5.1The [facility] Physician GroupComment on above:Performed By: #### NERY, SCAN CBC, FOL, B12, FE and TIBC, CMP ####[place] [address] USAProtein [Mass/Vol]5.8 g/dLLow6.4-8.9The [facility] Physician GroupComment on above: Performed By: #### NERY, SCAN CBC, FOL, B12, FE and TIBC, CMP ####[place] [address] USASodium [Moles/Vol]138 mmol/GBuxfya453-939Onv [facility] Physician GroupComment on above:Performed By: #### NERY, SCAN CBC, FOL, B12, FE and TIBC, CMP ####[place] [address] USAUrea nitrogen [Mass/Vol]12 mg/dLNormal 7-25The [facility] Physician GroupComment on above:Performed By: #### NERY, SCAN CBC, FOL, B12, FE and TIBC, CMP ####[place] [address] USACopperon 89-88-3283Kysstc348 ug/nVKvozau44-221Iiu [facility] HospitalComment on above:Result Comment: This test was developed and its performance characteristics determined by [employer]. It has not been cleared or approved by the Food and Drug Administration. Detection Limit = 5 Performed at: [address] [id number] Door Glass Installer: Maxine Briones MD, Phone: [phone] BY:[place] [address] [place] [address] [phone] MEDICAL DIRECTORARIEL BRUCE M.D.Performed By: #### CU ####[facility] ,Ferritin [Mass/volume] in Serum or Plasma Ordered By: Fabiola Marinelli on 74-70-0591Kgmwjlpe [Mass/Vol]125.3 ng/mLNormal 11.0-306.8[facility] For RehabilitationComment on above:Performed By: #### NERY, SCAN CBC, FOL, B12, FE and TIBC, CMP ####[facility] [address] [place] [address] USAFolateon 89-77-9522Rdmhzn3.9 ng/mLNormal>5.9 The [facility] Physician GroupComment on above:Result Comment: Folate reference range: >5.9 ng/ml The WHO technical consultation on folate and vitamin b12 deficiencies has determined that folate concentrations less than 4 ng/ml are considered deficient.PERFORMED BY:[address] [place], [place] [phone] MEDICAL DIRECTORARIEL BRUCE M.D.Performed By: #### NERY, SCAN CBC, FOL, B12, FE and TIBC, CMP ####[facility] Ziy[address] [place], [place] [address] USAFolate [Mass/volume] in Serum or PlasmaOrdered By: Fabiola Marinelli on 32-33-4772Cswrql [Mass/Vol]9.9 ng/mL >5.9Children[facility] Hospital For RehabilitationIgE [Units/volume] in Serum or Plasma Ordered By: Fabiola Marinelli on 13-17-4750BeK Qn<2 [IU]/mLLow6-495[facility] For RehabilitationImmunoglobulins A/E/G/M, Qnon 11-34-9041Vlqdkviylwbdia A, Serum<5 Zqsedm90-187Ala [facility] Physician GroupComment on above:Result Comment: Result confirmed on concentration.Performed By: #### IMM GAME ####[facility] ,Immunoglobulin E<5Fdwain8-853Kwr [facility] Physician GroupComment on above:Result Comment: Performed at: - [facility] [address] [id number] Door Glass Installer: Lang Knight PhD, Phone: [phone] Performed at: [facility] [address] [id number] Door Glass Installer: Maxine Briones MD, Phone: [phone] BY:[facility] [place], [place] [phone] MEDICAL DIRECTORGIULIANO BRUCE M.D.Performed By: #### IMM GAME ####[facility] ,Immunoglobulin G770 mg/bZOewlbv119-7693Uty [facility] Physician GroupComment on above:Performed By: #### IMM GAME ####[facility] , Immunoglobulin M, Serum<0Uztjuk81-464Dvl [facility] HospitalComment on above:Result Comment: Result confirmed on concentration.Performed By: #### IMM GAME ####[facility] ,Iron [Mass/volume] in Serum or PlasmaOrdered By: Fabiola Marinelli on 09-27-7981Feqw [Mass/Vol]102 ug/oLYkbwgi59-091GrouzkmceChildren'S Hospital For RehabilitationComment on above:Performed By: #### NERY, SCAN CBC, FOL, B12, FE and TIBC, CMP ####[address] [address] USAIron and TIBC Profileon 08-02-2025% Iron Uhumqxmrqu31.2 %Aqcued30-00Okg [facility] HospitalComment on above:Performed By: #### NERY, SCAN CBC, FOL, B12, FE and TIBC, CMP ####[address] [address] USATotal Iron Binding Nrglncky973 ug/cWRyqigr923-733Wff [facility] HospitalComment on above:Performed By: #### NERY, SCAN CBC, FOL, B12, FE and TIBC, CMP ####[address] [address] USAPlatelets Large [Presence] in Blood by Light microscopyOrdered By: Fabiola Marinelli on 58-33-2608Jpxshbpdj Large LM Ql (Bld)[facility] Medical CenterPolychromasia [Presence] in Blood by Light microscopyOrdered By: Fabiola Marinelli on 11-96-9008Oqbkgslzzvzbq LM Ql (Bld)Slight Summa Healthcan and CBCon 77-27-2435Kpiwepzgimbb Ql (Bld) Loring HospitalNoalThe [facility]alachian Physician GroupComment on above:Performed By: #### NERY, SCAN CBC, FOL, B12, FE and TIBC, CMP ####[place] [address] USABasophils (Bld) [#/Vol]0.0 10*3/uLNormal 0.0-0.2The [facility] Physician GroupComment on above:Performed By: #### NERY, SCAN CBC, FOL, B12, FE and TIBC, CMP ####[place] [address] USABasophils/100 WBC (Bld)0.2 %Normal.The [facility] Physician GroupComment on above:Performed By: #### NERY, SCAN CBC, FOL, B12, FE and TIBC, CMP ####[place] [address] USAEosinophils (Bld) [#/Vol]0.6 10*3/uLHigh0.0-0.45The [facility] Physician GroupComment on above:Performed By: #### NERY, SCAN CBC, FOL, B12, FE and TIBC, CMP ####[place] [address] [place] Eosinophils/100 WBC (Bld)33.3 %Normal.The [facility]achian Physician GroupComment on above:Performed By: #### NERY, SCAN CBC, FOL, B12, FE and TIBC, CMP ####[place] [address] USAErythrocyte distribution width (RBC) [Ratio]15.1 %Juajmf63.9-15.3The [facility] Physician GroupComment on above:Performed By: #### NERY, SCAN CBC, FOL, B12, FE and TIBC, CMP ####[address] Hematocrit (Bld) [Volume fraction]33.6 %Low34.0-46.4The [facility] Physician GroupComment on above:Performed By: #### NERY, SCAN CBC, FOL, B12, FE and TIBC, CMP ####[address] Hemoglobin (Bld) [Mass/Vol]11.4 g/dLLow11.8-15.4The [facility] Comment on above:Performed By: #### NERY, SCAN CBC, FOL, B12, FE and TIBC, CMP ####[place] [address] USALarge PlateletsSlightNormalThe [facility]alachian Physician GroupComment on above:Result Comment: PERFORMED BY:[place] [address] [address] [place], [place] [phone] MEDICAL DIRECTORARIEL BRUCE M.D.Performed By: #### NERY, SCAN CBC, FOL, B12, FE and TIBC, CMP ####[place] [address] USALymphocytes (Bld) [#/Vol]0.3 10*3/uLLow1.00-4.8The [facility] Physician GroupComment on above:Performed By: #### NERY, SCAN CBC, FOL, B12, FE and TIBC, CMP ####[place] [address] USALymphocytes/100 WBC (Bld)18.4 %Normal. The [facility] Physician GroupComment on above:Performed By: #### NERY, SCAN CBC, FOL, B12, FE and TIBC, CMP ####[place] [address] USAMCH (RBC) [Entitic mass]32.4 oiPkpach13.7-34.3The [facility] Physician GroupComment on above:Performed By: #### NERY, SCAN CBC, FOL, B12, FE and TIBC, CMP ####[place] [address] USAMCV (RBC) [Entitic vol]95.6 oFYlezkj32-652Rbc [facility] Physician GroupComment on above:Performed By: #### NERY, SCAN CBC, FOL, B12, FE and TIBC, CMP ####[place] [address] USAMean Corpuscular HGB Conc33.9 g/pDTqtmsj11.0-35.0The [facility] Physician GroupComment on above:Performed By: #### NERY, SCAN CBC, FOL, B12, FE and TIBC, CMP ####[place] [address] USAMonocytes (Bld) [#/Vol]0.3 10*3/uLNormal0.0-0.8The [facility] Physician GroupComment on above:Performed By: #### NERY, SCAN CBC, FOL, B12, FE and TIBC, CMP ####[place] [address] USAMonocytes/100 WBC (Bld)18.3 %Normal.The [facility] Physician GroupComment on above:Performed By: #### NERY, SCAN CBC, FOL, B12, FE and TIBC, CMP ####[place] [address] USANeutrophils (Bld) [#/Vol]0.5 10*3/uLLow1.8-7.7The [facility] Physician GroupComment on above:Performed By: #### NERY, SCAN CBC, FOL, B12, FE and TIBC, CMP ####[place] [address] [place] Neutrophils/100 WBC (Bld)29.8 %Normal.The [facility] Physician GroupComment on above:Performed By: #### NERY, SCAN CBC, FOL, B12, FE and TIBC, CMP ####[place] [address] USANRBC%0.2 /100{WBC} Normal0-0.5The [facility] Physician GroupComment on above:Performed By: #### NERY, SCAN CBC, FOL, B12, FE and TIBC, CMP ####[place] [address] USAOvalocytesSAtrium Health Union West Physician GroupComment on above:Performed By: #### NERY, SCAN CBC, FOL, B12, FE and TIBC, CMP ####[place] [address] [place] Platelet EstimateDecreasedNoCleveland Clinic Martin South Hospital Physician GroupComment on above:Performed By: #### NERY, SCAN CBC, FOL, B12, FE and TIBC, CMP ####[place] [address] USAPlatelet mean volume (Bld) [Entitic vol]8.9 fLNormal6.3-10.7The [facility] Physician GroupComment on above:Performed By: #### NERY, SCAN CBC, FOL, B12, FE and TIBC, CMP ####[place] [address] USAPlatelet Morphology NormalNormTallahassee Memorial HealthCare Physician GroupComment on above:Performed By: #### NERY, SCAN CBC, FOL, B12, FE and TIBC, CMP ####[place] [address] USAPlatelets (Bld) [#/Vol]45 10*3/uLLow 150-450The [facility] Physician GroupComment on above:Performed By: #### NERY, SCAN CBC, FOL, B12, FE and TIBC, CMP ####[address] [address] USAPoikilocytosisSAtrium Health Union West Physician GroupComment on above:Performed By: #### NERY, SCAN CBC, FOL, B12, FE and TIBC, CMP ####[address] [address] USA PolychromasiaSAtrium Health Union West Physician GroupComment on above:Performed By: #### NERY, SCAN CBC, FOL, B12, FE and TIBC, CMP ####[address] [address] USARBC (Bld) [#/Vol]3.51 10*6/uL Low3.60-5.00The [facility] Physician GroupComment on above:Performed By: #### NERY, SCAN CBC, FOL, B12, FE and TIBC, CMP ####[address] [address] USASchistocytesSlightNormShorePoint Health Punta Gorda Physician GroupComment on above:Performed By: #### NERY, SCAN CBC, FOL, B12, FE and TIBC, CMP ####[address] [address] USAWBC (Bld) [#/Vol]1.8 10*3/uLLow3.8-11.6The [facility] Comment on above:Performed By: #### NERY, SCAN CBC, FOL, B12, FE and TIBC, CMP ####[address] [address] USAWhite Blood Count1.8 [CFU]/mLLow3.8-11.6The [facility] Physician GroupComment on above: Performed By: #### NERY, SCAN CBC, FOL, B12, FE and TIBC, CMP ####[address] [address] USASchistocytes [Presence] in Blood by Light microscopyOrdered By: Fabiola Marinelli on 08-02-2025 Schistocytes LM Ql (Bld)SlightSumma Healtherum or plasma IgA measurement (mass/volume)Ordered By: Fabiola Marinelli on 49-31-7705BdK [Mass/Vol] mg/jNTkq83-051PgldocgdmSumma Healtherum or plasma IgG measurement (mass/volume)Ordered By: Fabiola Marinelli on 44-08-6439TiG [Mass/Vol]770 mg/xQ749-5895 Summa Healtherum or plasma IgM measurement (mass/volume) Ordered By: Fabiola Marinelli on 52-30-9703GwT [Mass/Vol]mg/yDFau91-220GnvddczseSumma Healtherum or plasma ceruloplasmin measurement (mass/volume) Ordered By: Fabiola Marinelli on 86-54-0432Gtzhptgbxefyq [Mass/Vol]29.4 mg/dL19.0-39.0 Summa Healtherum or plasma iron binding capacity measurement (mass/volume)Ordered By: Fabiola Marinelli on 63-42-5284Vrru binding capacity [Mass/Vol]298 ug/xM779-981VzoxoifilSumma Healtherum or plasma iron saturation measurement (mass fraction)Ordered By: Fabiola Marinelli on 73-23-7913Rskg saturation [Mass fraction]34.2 %20-50Children[facility] Hospital For RehabilitationTransferrin [Mass/volume] in Serum or PlasmaOrdered By: Fabiola Marinelli on 53-97-3967Lvdswqhpnyf [Mass/Vol]213 mg/mOTnnbhe788-172KyenkuzuoChildren'S Hospital For RehabilitationComment on above:Performed By: #### NERY, SCAN CBC, FOL, B12, FE and TIBC, CMP ####[facility] K[address] [place] [address] Vitamin B12 ser/plasOrdered By: Fabiola Marinelli on 61-48-5365Vfxuagshx (Vitamin B12) [Mass/Vol]1113 pg/cSErcc050-567OjzjngvhkChildren'S Hospital For RehabilitationComment on above:Performed By: #### NERY, SCAN CBC, FOL, B12, FE and TIBC, CMP ####[facility] [address] [place] [address] USAAlanine aminotransferase [Enzymatic activity/volume] in Serum or PlasmaOrdered By: Fabiola Marinelli on 15-60-5834HNP [Catalytic activity/Vol]13 U/LNormal7-52[facility] Hospital For RehabilitationComment on above:Performed By: #### CMP, SCAN CBC ####[facility] [address] [place] [address] USAAlbumin [Mass/volume] in Serum or Plasma by Bromocresol green (BCG) dye binding metho Ordered By: Fabiola Marinelli on 09-50-8575Mysjtdg BCG dye [Mass/Vol]3.5 g/dL3.5-5.7 [facility] Hospital For RehabilitationAlkaline phosphatase [Enzymatic activity/volume] in Serum or PlasmaOrdered By: Fabiola Marinelli on 85-56-1356GKK [Catalytic activity/Vol]108 U/MHydc73-650WhkfosygzChildren'S Hospital For Rehabilitation Comment on above:Performed By: #### CMP, SCAN CBC ####[place] [address] [place] [address] USAAppearance of UrineOrdered By: Marlon Alba on 08-46-3754Ekcytdjdgb (U)ClearNormalClearChildren'S Hospital For RehabilitationComment on above:Order Comment: Name Collection Type:: Clean-Voided MidstreamPerformed By: #### UA ####[address] [address] USAAspartate aminotransferase [Enzymatic activity/volume] in Serum or PlasmaOrdered By: Fabiola Marinelli on 51-94-1324DAP [Catalytic activity/Vol]24 U/BFpqcjw47-51UmwusscziChildren'S Hospital For Rehabilitation Comment on above:Performed By: #### CMP, SCAN CBC ####[place] [id number] USABasophils [#/volume] in Blood by Automated countOrdered By: Fabiola Marinelli on 88-87-6500Jrroqchvp (Bld) [#/Vol]0.0 10*3/uLNormal0.0-0.2FOhioHealth Arthur G.H. Bing, MD, Cancer CenterComment on above:Performed By: #### CMP, SCAN CBC ####[address] [address] USABasophils/100 leukocytes in Blood by Automated count Ordered By: Fabiola Marinelli on 71-09-1031Cpmckxecy/100 WBC (Bld)0.5 %Normal.[facility] Hospital For RehabilitationComment on above:Performed By: #### CMP, SCAN CBC ####[place] [id number] [place] Bilirubin Test strip Ql (U)Ordered By: Marlon Alba on 11-74-2800Jrvtadudk Ql (U)NegativeNegativeChildren'S Hospital For RehabilitationBilirubin.total [Mass/volume] in Serum or PlasmaOrdered By: Fabiola Marinelli on 95-04-4325Moyktsgiz [Mass/Vol]1.1 mg/dLHigh0.3-1.0[facility] Hospital For RehabilitationComment on above: Performed By: #### CMP, SCAN CBC ####[place] [address] [place] [address] USACalcium [Mass/volume] in Serum or PlasmaOrdered By: Fabiola Marinelli on 05-07-2923Inuvpae [Mass/Vol]8.2 mg/dLLow8.6-10.3FOhioHealth Arthur G.H. Bing, MD, Cancer CenterComment on above:Performed By: #### CMP, SCAN CBC ####[facility] [address] [place] [address] USACarbon dioxide, total [Moles/volume] in Serum or PlasmaOrdered By: Fabiola Marinelli on 98-53-0873IN1 [Moles/Vol]28.7 mmol/NJuorkg70.0-31.0[facility] For RehabilitationComment on above:Performed By: #### CMP, SCAN CBC ####[address] [address] USAChloride [Moles/volume] in Serum or Plasma Ordered By: Fabiola Marinelli on 00-40-6536Guyjrrde [Moles/Vol]104 mmol/MKcoeou46-356 [facility] For RehabilitationComment on above:Performed By: #### CMP, SCAN CBC ####[address] [address] [place] Color of Urine by AutoOrdered By: Marlon Alba on [id number] (U)Colorless NormalYellowChildren'S Hospital For RehabilitationComment on above:Order Comment: Name Collection Type:: Clean-Voided MidstreamPerformed By: #### UA ####[address] [address] USAComprehensive Metabolic Panelon [id number] [Mass/Vol]3.5 g/dLNormal3.5-5.7The Un[facility] Appalachian Physician GroupComment on above:Performed By: #### CMP, SCAN CBC ####[address] [address] USACreatinine Clr Calc Okljjefq93.14NormNovant Health Kernersville Medical Centerlands Physician GroupComment on above:Result Comment: PERFORMED BY:[address] [place] [id number] MEDICAL DIRECTORARIEL BRUCE M.D.Performed By: #### CMP, SCAN CBC ####[facility] [address] [place] [address] USAGFR/1.73 sq M.predicted MDRD (S/P/Bld) [Vol rate/Area]49.613 mL/min/{1.73_m2}NormalThe Unc Health Appalachian Physician GroupComment on above:Performed By: #### CMP, SCAN CBC ####[facility] [place] [address] USAComprehensive metabolic panelon 72-54-5752Tsehbnk [Mass/Vol]3.5 g/dL3.5 - 5.7 g/dLNOMS HealthcareAlbumin/Globulin [Mass ratio]1.8 {ratio}NOMS HealthcareALP [Catalytic activity/Vol]108 U/LHigh34 - 104 U/LNOMS HealthcareALT [Catalytic activity/Vol]13 U/L7 - 52 U/LNOMS HealthcareAnion gap [Moles/Vol]8.4 mmol/L6.0 - 15.0NOMS HealthcareAST [Catalytic activity/Vol]24 U/L 13 - 39 U/LNOMS HealthcareBilirubin [Mass/Vol]1.1 mg/dLHigh0.3 - 1.0 mg/dLNOAR HealthcareCalcium [Mass/Vol]8.2 mg/dLLow8.6 - 10.3 mg/dLNOAR HealthcareChloride [Moles/Vol]104 mmol/L98 - 107 mmol/LNOMS HealthcareCO2 [Moles/Vol]28.7 mmol/L 21.0 - 31.0 mmol/LNOMS HealthcareCreatinine (U) [Mass/Vol]1.2 mg/dL0.60 - 1.20 mg/dLNOAR HealthcareCREATININE CLR CALC FURQDJXJ19.14NOMS HealthcareGFR/1.73 sq M.predicted MDRD (S/P/Bld) [Vol rate/Area]49.613 mL/min/{1.73_m2}[facility] Globulin (S) [Mass/Vol]2 g/dLNOMS HealthcareGlucose [Mass/Vol]93 mg/dL70 - 100 mg/dLNOAR HealthcareComment on above:Random Glucose Reference Range is dependent on time and content of last meal. Glucose of more than 200 mg/dL in a nonstressed, ambulatory subject supports the diagnosis of Diabetes Mellitus. ADA recommended reference range Interpretation and review of laboratory resultsAbnormalNOMS HealthcarePotassium [Moles/Vol]4.1 mmol/L3.5 - 5.1 mmol/LNOMS HealthcareProtein [Mass/Vol]5.5 g/dL Low6.4 - 8.9 g/dLNOAR HealthcareSodium [Moles/Vol]137 mmol/L136 - 145 mmol/LNOMS HealthcareUrea nitrogen [Mass/Vol]16 mg/dL7 - 25 mg/dLNOOzarks Medical CenterNOAR HealthcareCreatinine [Mass/volume] in Serum or PlasmaOrdered By: Fabiola Marinelli on 63-99-8405Wwkxayypfy [Mass/Vol]1.20 mg/dLNormal0.60-1.20[facility] For RehabilitationComment on above:Performed By: #### CMP, SCAN CBC ####[address] [address] USAEosinophils [#/volume] in Blood by Automated countOrdered By: Fabiola Marinelli on 07-19-2025 Eosinophils (Bld) [#/Vol]0.5 10*3/uLHigh0.0-0.45Children[facility] Hospital For RehabilitationComment on above:Performed By: #### CMP, SCAN CBC ####[address] [address] USAEosinophils/100 leukocytes in Blood by Automated countOrdered By: Fabiola Marinelli on 93-66-6441Erofpshwxdq/100 WBC (Bld)28.2 %Normal.[facility] Hospital For RehabilitationComment on above:Performed By: #### CMP, SCAN CBC ####[address] [address] USAErythrocyte distribution width [Ratio] by Automated countOrdered By: Fabiola Marinelli on 60-78-5857Fxwaztwbgcb distribution width (RBC) [Ratio]14.8 %Yylrgy01.9-15.3FOhioHealth Arthur G.H. Bing, MD, Cancer CenterComment on above: Performed By: #### CMP, SCAN CBC ####[place] [address] [place] [id number] USAErythrocyte morphology finding [Identifier] in Blood Ordered By: Fabiola Marinelli on 99-26-9187LPF morphology finding Nom (Bld)N/AFOhioHealth Arthur G.H. Bing, MD, Cancer CenterErythrocytes [#/volume] in Blood by Automated count Ordered By: Fabiola Marinelli on 77-29-8794NCD (Bld) [#/Vol]3.33 10*6/uLLow3.60-5.00 [facility] For RehabilitationComment on above:Performed By: #### CMP, SCAN CBC ####[place] [address] [place] [id number] [facility]ENTERB Glomerular filtration rate [Volume Rate/Area] in Serum, Plasma or Blood by CreatinineOrdered By: Fabiola Marinelli on 55-96-1366Qmeknumkqs filtration rate [Volume Rate/Area] in Serum, Plasma or Blood by Sksteeljti44.613 mL/MinChildren'S Hospital For RehabilitationGlucose [Mass/volume] in Serum or PlasmaOrdered By: Fabiola Marinelli on 56-84-7012Fiychsy [Mass/Vol]93 mg/tKXpynlm56-631ClflvkthtChildren'S Hospital For RehabilitationComment on above:Result Comment: Random Glucose Reference Range is dependent on time and content of last meal. Glucose of more than 200 mg/dL in a nonstressed, ambulatory subject supports the diagnosis of Diabetes Mellitus. ADA recommended reference rangePerformed By: #### CMP, SCAN CBC ####[facility] [place] [id number] USAGlucose [Mass/volume] in Urine by Test stripOrdered By: Marlon Alba on 22-95-7700Cnodlnd Test strip (U) [Mass/Vol]Normal mg/dLNormWood County HospitalHematocrit [Volume Fraction] of Blood by Automated countOrdered By: Fabiola Marinelli on 07-19-2025 Hematocrit (Bld) [Volume fraction]32.4 %Low34.0-46.4FOhioHealth Arthur G.H. Bing, MD, Cancer CenterComment on above:Performed By: #### CMP, SCAN CBC ####[address] [address] USAHemoglobin Test strip Ql (U) Ordered By: aMrlon Alba on 35-13-2072Jlmsnazhtp Ql (U)NegativeNegHarrison Community HospitalHemoglobin [Mass/volume] in BloodOrdered By: Fabiola Marinelli on 96-32-5612Phugemfvyd (Bld) [Mass/Vol]10.9 g/dLLow11.8-15.4FOhioHealth Arthur G.H. Bing, MD, Cancer CenterComment on above:Performed By: #### CMP, SCAN CBC ####[address] [address] USAKetones [Presence] in Urine by Test stripOrdered By: Marlon Alba on 66-17-2576Kmtalhu Ql (U)Negative NormalNegHarrison Community HospitalComment on above:Order Comment: Name Collection Type:: Clean-Voided MidstreamPerformed By: #### UA ####[place] [id number] USALeukocyte esterase [Presence] in Urine by Test stripOrdered By: Marlon Alba on 92-49-7021Mwptbejin esterase Test strip Ql (U)NegativeNormalNegHarrison Community HospitalComment on above:Order Comment: Name Collection Type:: Clean-Voided MidstreamPerformed By: #### UA ####[address] [address] USALeukocytes [#/volume] corrected for nucleated erythrocytes in Blood by Automated counOrdered By: Fabiola Marinelli on 92-15-0881JSZ corrected for nucl RBC Auto (Bld) [#/Vol]1.7 10*3/uLLow3.8-11.6FOhioHealth Arthur G.H. Bing, MD, Cancer CenterLeukocytes [#/volume] in Blood by Automated countOrdered By: Fabiola Marinelli on 48-34-7574SEW (Bld) [#/Vol]1.7 10*3/uLLow3.8-11.6FOhioHealth Arthur G.H. Bing, MD, Cancer CenterComment on above:Performed By: #### CMP, SCAN CBC ####[address] [address] [place] Lymphocytes [#/volume] in Blood by Automated countOrdered By: Fabiola Marinelli on 74-24-3320Qmdgnyopssv (Bld) [#/Vol]0.3 10*3/uLLow1.00-4.8[facility] Hospital For RehabilitationComment on above:Performed By: #### CMP, SCAN CBC ####[facility] [address] [place] [address] USALymphocytes/100 leukocytes in Blood by Automated countOrdered By: Fabiola Marinelli on 07-19-2025 Lymphocytes/100 WBC (Bld)20.0 %Normal.[facility] Hospital For RehabilitationComment on above:Performed By: #### CMP, SCAN CBC ####[facility] [address] [place], [place] [address]MCH [Entitic mass] by Automated countOrdered By: Fabiola Marinelli on 48-53-9762WXX (RBC) [Entitic mass]32.7 snBdzztb35.7-34.3 [facility] For RehabilitationComment on above:Performed By: #### CMP, SCAN CBC ####[address] MCHC Auto (RBC) [Mass/Vol]Ordered By: Fabiola Marinelli on 36-28-7740WLCE (RBC) [Mass/Vol]33.6 g/dL32.0-35.0[facility] For RehabilitationMCV [Entitic volume] by Automated countOrdered By: Fabiola Marinelli on 49-87-5875CUN (RBC) [Entitic vol]97.4 uVObkxxe22-662VwtnkloocChildren'S Hospital For RehabilitationComment on above: Performed By: #### CMP, SCAN CBC ####[place] [address] USAMonocytes [#/volume] in Blood by Automated count Ordered By: Fabiola Marinelli on 61-05-2806Xidnewfoc (Bld) [#/Vol]0.4 10*3/uLNormal 0.0-0.8[facility] Hospital For RehabilitationComment on above:Performed By: #### CMP, SCAN CBC ####[facility] [address] [place] [address] USAMonocytes/100 leukocytes in Blood by Automated countOrdered By: Fabiola Marinelli on 57-11-6597Wdhatcrin/100 WBC (Bld)21.6 %Normal.[facility] Comment on above:Performed By: #### CMP, SCAN CBC ####[facility] [address] [place] [address] USANeutrophils [#/volume] in Blood by Automated countOrdered By: Fabiola Marinelli on 84-70-0280Tvvrimabjmp (Bld) [#/Vol]0.5 10*3/uLLow1.8-7.7FOhioHealth Arthur G.H. Bing, MD, Cancer CenterComment on above:Performed By: #### CMP, SCAN CBC ####[facility] [address] [place] [address] USANeutrophils/100 leukocytes in Blood by Automated countOrdered By: Fabiola Marinelli on 90-94-3290Ipiowyjusiv/100 WBC (Bld)29.7 %Normal.[facility] Hospital For RehabilitationComment on above:Performed By: #### CMP, SCAN CBC ####[facility] [address] [place] [address] USANitrite Test strip Ql (U)Ordered By: Marlon Alba on 18-56-3527Iqxtlwm Ql (U)NegativeNegative [facility] For RehabilitationNo Panel InformationOrdered By: Fabiola Marinelli on 09-42-350564.14[facility] Hospital For RehabilitationNucleated erythrocytes [Presence] in Blood by Automated countOrdered By: Fabiola Marinelli on 07-19-2025 Nucleated RBC Auto Ql (Bld)0.2 /100{WBC}0-0.5FOhioHealth Arthur G.H. Bing, MD, Cancer Center Ovalocytes [Presence] in Blood by Light microscopyOrdered By: Fabiola Marinelli on 63-10-6911Knfcxuzjpb LM Ql (Bld)SlightChildren'S Hospital For RehabilitationPlatelet adequacy [Presence] in Blood by Light microscopyOrdered By: Fabiola Marinelli on 68-42-9409Qpleenzom LM Ql (Bld)DecreasedNormalChildren'S Hospital For Rehabilitation Platelet mean volume [Entitic volume] in Blood by Automated countOrdered By: Fabiola Marinelli on 09-13-5760Kzynqwrl mean volume (Bld) [Entitic vol]9.0 fLNormal6.3-10.7 [facility] For RehabilitationComment on above:Performed By: #### CMP, SCAN CBC ####[place] [address] Platelet morphology finding [Identifier] in BloodOrdered By: Fabiola Marinelli on 77-13-1565Bwjskizz morphology finding Nom (Bld)N/[facility]ike Medical CenterPlatelets Large [Presence] in Blood by Light microscopyOrdered By: Fabiola Marinelli on 49-07-4907Renqscdvy Large LM Ql (Bld)[facility] Children's HospitalPlatelets [#/volume] in Blood by Automated countOrdered By: Fabiola Marinelli on 30-50-1607Fdbmyqqzu (Bld) [#/Vol]46 10*3/aTDcb680-566CcovmtmbfChildren'S Hospital For RehabilitationComment on above:Performed By: #### CMP, SCAN CBC ####[place] [address] [place] [address] USAPoikilocytosis [Presence] in Blood by Light microscopyOrdered By: Fabiola Marinelli on 78-01-1464Ouhpjqmxygibqz LM Ql (Bld)[facility] Children's HospitalPolychromasia [Presence] in Blood by Light microscopyOrdered By: Fabiola Marinelli on 41-95-7145Kvdndlqpanqrj LM Ql (Bld) [facility] Children's HospitalPotassium [Moles/volume] in Serum or PlasmaOrdered By: Fabiola Marinelli on 27-40-3761Uhdziagfi [Moles/Vol]4.1 mmol/LNormal 3.5-5.1FOhioHealth Arthur G.H. Bing, MD, Cancer CenterComment on above:Performed By: #### CMP, SCAN CBC ####[place] [id number] USAProtein Test strip (U) [Mass/Vol]Ordered By: Marlon Alba on 07-19-2025 Protein (U) [Mass/Vol]NegativeNegativeChildren'S Hospital For RehabilitationProtein [Mass/volume] in Serum or PlasmaOrdered By: Fabiola Marinelli on 93-98-5727Ermypfz [Mass/Vol]5.5 g/dLLow6.4-8.9[facility] Hospital For RehabilitationComment on above: Performed By: #### CMP, SCAN CBC ####[address] [address] USAScan and CBCon 37-40-3600Sdldy PlateletsSlightNormal [facility] Physician GroupComment on above:Result Comment: PERFORMED BY:[address] [place], [place] [phone] MEDICAL DIRECTORARIEL BRUCE M.D.Performed By: #### CMP, SCAN CBC ####[address] [address] USAMean Corpuscular HGB Conc33.6 g/nQDkzrpe40.0-35.0The [facility]ician [facility] HospitalComment on above:Performed By: #### CMP, SCAN CBC ####[address] [address] USANRBC%0.2 /100{WBC}Normal0-0.5 [facility] Physician [facility] HospitalComment on above:Performed By: #### CMP, SCAN CBC ####[address] [address] [facility]ENTERB OvalocytesSlightNoCritical access hospital Physician GroupComment on above:Performed By: #### CMP, SCAN CBC ####[address] [address] USAPlatelet EstimateDecreasedNormalSt. Vincent's Medical Center Southside Physician GroupComment on above:Performed By: #### CMP, SCAN CBC ####[address] [address] USAPoikilocytosisSlight NormalThe [facility] Physician [facility] HospitalComment on above:Performed By: #### CMP, SCAN CBC ####[address] [address] [place] PolychromasiaSlightSt. Vincent's Medical Center Southside Physician GroupComment on above:Performed By: #### CMP, SCAN CBC ####[address] [address] USAWhite Blood Count1.7 [CFU]/mLLow3.8-11.6The [facility]achian Physician GroupComment on above:Performed By: #### CMP, SCAN CBC ####[place] [address] [place] [id number] USASerum globulin measurement by calculation (mass/volume)Ordered By: Fabiola Marinelli on 08-40-5769Dscdsftz (S) [Mass/Vol]2.0 g/dLNoLutheran Hospital Comment on above:Performed By: #### CMP, SCAN CBC ####[place] [address] USASerum or plasma albumin/globulin mass ratioOrdered By: Fabiola Marinelli on 68-27-5355Vsmnclb/Globulin [Mass ratio]1.8 {ratio}NormalChildren'S Hospital For RehabilitationComment on above:Performed By: #### CMP, SCAN CBC ####[place] [address] USASerum or plasma anion gap determinationOrdered By: Fabiola Marinelli on 56-16-0867Frgsz gap [Moles/Vol]8.4 mmol/LNormal6.0-15.0[facility] For RehabilitationComment on above:Performed By: #### CMP, SCAN CBC ####[place] [address] USASodium [Moles/volume] in Serum or PlasmaOrdered By: Fabiola Marinelli on 87-20-0503Ngqhcp [Moles/Vol]137 mmol/BYktvck173-144GfeeiktwcChildren'S Hospital For RehabilitationComment on above:Performed By: #### CMP, SCAN CBC ####[place] [address] USASpecific gravity Test strip (U) [Rel density]Ordered By: Marlon Alba on 07-43-4665Oeskmpik gravity (U) [Rel density]1.0051.001-1.030 [facility] For RehabilitationUrea nitrogen [Mass/volume] in Serum or Plasma Ordered By: Fabiola Marinelli on 01-52-2026Hejf nitrogen [Mass/Vol]16 mg/dLNormal7-25 [facility] For RehabilitationComment on above:Performed By: #### CMP, SCAN CBC ####[address] [address] [facility] CENTERB Urinalysison 85-26-3123Vspvmktlc,UrineNegativeNormalNegativeThe [facility]alachian Physician GroupComment on above:Order Comment: Name Collection Type:: Clean- Voided MidstreamPerformed By: #### UA ####[address] [address] USAGlucose Ql (U)NormalNormalNormalThe [facility]alachian Physician GroupComment on above:Order Comment: Name Collection Type:: Clean- Voided MidstreamPerformed By: #### UA ####[address] [address] USANitrite,UrineNegativeNormalNegativeThe [facility]alachian Physician GroupComment on above:Order Comment: Name Collection Type:: Clean-Voided MidstreamPerformed By: #### UA ####[address] [address] USAOccult Blood,UrineNegativeNormal NegativeThe [facility]alachian Physician GroupComment on above:Order Comment: Name Collection Type:: Clean-Voided MidstreamResult Comment: PERFORMED BY:[address] [place], [place] [phone] MEDICAL DIRECTORARIEL BRUCE M.D.Performed By: #### UA ####[address] [address] USAProtein,UrineNegative NormalNegativeTrinity Community Hospital Physician GroupComment on above:Order Comment: Name Collection Type:: Clean-Voided MidstreamPerformed By: #### UA ####[address] [address] USASpecificy [place],Urine1.719Oaxdrt0.001-1.030The [facility] Physician GroupComment on above:Order Comment: Name Collection Type:: Clean-Voided MidstreamPerformed By: #### UA ####[address] [address] USAUrobilinogen,UrineNormalNormalNormalThe [facility]ian Physician GroupComment on above:Order Comment: Name Collection Type:: Clean-Voided MidstreamPerformed By: #### UA ####[facility] [place] [address] USAUrobilinogen Test strip (U) [Mass/Vol]Ordered By: Marlon Alba on 07-19-2025 Urobilinogen (U) [Mass/Vol]Normal mg/dLNormalChildren'S Hospital For RehabilitationpH of Urine by Test stripOrdered By: Marlon Alba on 27-17-0074mO (U)6.5 [pH] Normal5.0-9.0[facility] For RehabilitationComment on above:Order Comment: Name Collection Type:: Clean-Voided MidstreamPerformed By: #### UA ####[place] [address] [place] [address] USAAFP Tumor Marker, Serumon 25-43-6609OPD Tumor Marker, Serum4.6 ng/mLNormal0.0-9.2The [facility] HospitalComment on above:Result Comment: [employer] Electrochemiluminescence Immunoassay (ECLIA) Values obtained withdifferent assay methods or kits cannot be used interchangeably. Results cannot be interpreted as absolute evidence of the presence or absence of malignant disease. This test is not interpretable in females. Performed at: - [facility] [id number] Door Glass Installer: Lang Knight PhD, Phone: [phone] By: #### VAHID SERUM, AFPTM, SPE ####[facility] , Band form neutrophils/100 leukocytes in Blood by Manual countOrdered By: Fabiola Marinelli on 91-11-6534Pacc form neutrophils/100 WBC (Bld)1 %Normal0-5FOhioHealth Arthur G.H. Bing, MD, Cancer CenterComment on above:Performed By: #### DIFF CBC, CMP ####[place] [address] [place] [phone] [place] Comprehensive Metabolic Panelon 98-46-6336Gceodkd [Mass/Vol]3.7 g/dLNormal 3.5-5.7The [facility] Physician GroupComment on above:Performed By: #### DIFF CBC, CMP ####[place] [address] [place] [address] USAAlbumin/Globulin [Mass ratio]1.8 {ratio}NormalThe [facility] Comment on above:Performed By: #### DIFF CBC, CMP ####[place] [address] [place] [address] USAALP [Catalytic activity/Vol]120 U/L Baio34-725Qrk [facility] General HospitalComment on above:Performed By: #### DIFF CBC, CMP ####[place] [address] [place] [address] USAALT [Catalytic activity/Vol]14 U/LNormal7-52The [facility] Comment on above:Performed By: #### DIFF CBC, CMP ####[place] [address] [place] [address] USAAnion gap [Moles/Vol]10.5 mmol/LNormal 6.0-15.0The [facility] General HospitalComment on above:Performed By: #### DIFF CBC, CMP ####[address] [address] USAAST [Catalytic activity/Vol]28 U/FJkuvyc86-12Xzu [facility] Comment on above:Performed By: #### DIFF CBC, CMP ####[place] [address] [place] [address] USABilirubin [Mass/Vol]1.3 mg/dLHigh 0.3-1.0The [facility] Physician GroupComment on above:Result Comment: Samples from patients who have taken Naproxen have shown spurious elevation in Total Bilirubin levels. A metabolite of Naproxen, O-desmethylnaproxen, has been shown to interfere with the Jenvincenzo-Felicitas method for measuring Total Bilirubin. Performed By: #### DIFF CBC, CMP ####[facility] [place] [address] USACalcium [Mass/Vol]8.5 mg/dLLow8.6-10.3The [facility] HospitalComment on above:Performed By: #### DIFF CBC, CMP ####[facility] [place] [address] USAChloride [Moles/Vol] 102 mmol/GCbbkyn58-546Qiz [facility] Physician GroupComment on above:Performed By: #### DIFF CBC, CMP ####[place] [address] [place] [address] USACO2 [Moles/Vol]27.8 mmol/PUxgbwa01.0-31.0The [facility] Physician GroupComment on above:Performed By: #### DIFF CBC, CMP ####[place] [address] [place] [address] [place] Creatinine [Mass/Vol]1.12 mg/dLNormal0.60-1.20The [facility] Comment on above:Performed By: #### DIFF CBC, CMP ####[address] [address] USACreatinine Clr Calc Wemvipzp90.94 NormalThe [facility] General HospitalComment on above:Result Comment: PERFORMED BY:[address] [place]JunaidMOWEA[place], [place] [phone] MEDICAL BARBIE BRUCE M.D.Performed By: #### DIFF CBC, CMP ####[address] [address] USAGFR/1.73 sq M.predicted MDRD (S/P/Bld) [Vol rate/Area]53.896 mL/min/{1.73_m2} NormalTrinity Community Hospital Physician [facility] General HospitalComment on above:Performed By: #### DIFF CBC, CMP ####[address] [address] [place] Globulin (S) [Mass/Vol]2.1 g/dLNormalThe [facility] HospitalComment on above:Performed By: #### DIFF CBC, CMP ####[address] [address] USAGlucose [Mass/Vol]119 mg/zDQnmk66-682Hut [facility] Physician GroupComment on above:Result Comment: Random Glucose Reference Range is dependent on time and content of last meal. Glucose of more than 200 mg/dL in a nonstressed, ambulatory subject supports the diagnosis of Diabetes Mellitus. ADA recommended reference rangePerformed By: #### DIFF CBC, CMP ####[place] [address] Potassium [Moles/Vol]4.3 mmol/LNormal3.5-5.1The [facility] Physician GroupComment on above:Performed By: #### DIFF CBC, CMP ####[facility] [place] [address] USAProtein [Mass/Vol]5.8 g/dLLow6.4-8.9 The [facility] Physician GroupComment on above:Performed By: #### DIFF CBC, CMP ####[place] [address] [place] [address] USASodium [Moles/Vol]136 mmol/NVguyva867-919Zxq [facility] HospitalComment on above: Performed By: #### DIFF CBC, CMP ####[place] [address] [place] [address] USAUrea nitrogen [Mass/Vol]21 mg/dLNormal7-25The [facility] Physician GroupComment on above:Performed By: #### DIFF CBC, CMP ####[place] [address] Comprehensive metabolic panelon 22-50-4410Xutoejt [Mass/Vol]3.7 g/dL3.5 - 5.7 g/dLNOAR HealthcareAlbumin/Globulin [Mass ratio]1.8 {ratio}NOMS HealthcareALP [Catalytic activity/Vol]120 U/LHigh34 - 104 U/LNOMS HealthcareALT [Catalytic activity/Vol]14 U/L7 - 52 U/LNOMS HealthcareAnion gap [Moles/Vol]10.5 mmol/L6.0 - 15.0NOMS HealthcareAST [Catalytic activity/Vol]28 U/L13 - 39 U/LNOMS HealthcareBilirubin [Mass/Vol]1.3 mg/dLHigh0.3 - 1.0 mg/dLNOAR HealthcareComment on above:Samples from patients who have [...] mg/dL0.60 - 1.20 mg/dLNOMS HealthcareCREATININE CLR CALC OBRFMTRR50.94NOMS HealthcareGFR/1.73 sq M.predicted MDRD (S/P/Bld) [Vol rate/Area]53.896 mL/min/{1.73_m2}[facility] Globulin (S) [Mass/Vol]2.1 g/dLNOMS HealthcareGlucose [Mass/Vol]119 mg/mWDime63 - 100 mg/dLNOMS HealthcareComment on above:Random Glucose Reference Range is [...] mmol/LNOMS HealthcareUrea nitrogen [Mass/Vol]21 mg/dL7 - 25 mg/dLNOMS HealthcareNOMS HealthcareDiff and CBCon 53-40-6716Fqphuucyyzf distribution width (RBC) [Ratio] 15.2 %Pzxlcm12.9-15.3The [facility] Physician GroupComment on above:Performed By: #### DIFF CBC, CMP ####[facility] [address] [place] [address] USAHematocrit (Bld) [Volume fraction]34.5 %Wwzybz40.0-46.4The [facility] Physician GroupComment on above:Performed By: #### DIFF CBC, CMP ####[address] [address] [place] Hemoglobin (Bld) [Mass/Vol]11.6 g/dLLow11.8-15.4The [facility] Comment on above:Performed By: #### DIFF CBC, CMP ####[address] [address] [facility] CENTERBMCH (RBC) [Entitic mass]32.9 pgNormal 24.7-34.3The [facility] Physician GroupComment on above:Performed By: #### DIFF CBC, CMP ####[address] [address] USAMCV (RBC) [Entitic vol]98.0 nLCaphkn45-942Jyr [facility] Comment on above:Performed By: #### DIFF CBC, CMP ####[address] [address] USAMean Corpuscular HGB Conc33.5 g/dL Ltnexf29.0-35.0The [facility] Physician GroupComment on above:Performed By: #### DIFF CBC, CMP ####[address] [address] USAOvalocytesModerateNoCritical access hospital Physician GroupComment on above: Performed By: #### DIFF CBC, CMP ####[address] [address] USAPlatelet EstimateDecreasedNormalNormShorePoint Health Punta Gorda Physician GroupComment on above:Performed By: #### DIFF CBC, CMP ####[address] [address] USAPlatelet mean volume (Bld) [Entitic vol]9.0 fLNormal6.3-10.7The [facility] Physician GroupComment on above:Performed By: #### DIFF CBC, CMP ####[address] [address] USAPlatelet MorphologyNormalNormalNoCritical access hospital Physician GroupComment on above:Result Comment: PERFORMED BY:[address] [address] [place], [place] [phone] MEDICAL DIRECTORARIEL BRUCE M.D.Performed By: #### DIFF CBC, CMP ####[address] [address] [place] Platelets (Bld) [#/Vol]57 10*3/uNNjp036-401Oam [facility] General HospitalComment on above:Performed By: #### DIFF CBC, CMP ####[address] [address] USAPoikilocytosisModerateNormalThe [facility] Magee General HospitalComment on above:Performed By: #### DIFF CBC, CMP ####[address] [address] USARBC (Bld) [#/Vol]3.52 10*6/uLLow3.60-5.00The [facility] HospitalComment on above:Performed By: #### DIFF CBC, CMP ####[address] [address] USAWBC (Bld) [#/Vol]2.5 10*3/uLLow3.8-11.6The [facility] Comment on above:Performed By: #### DIFF CBC, CMP ####[address] [address] USAWhite Blood Count2.5 [CFU]/mLLow 3.8-11.6The [facility] HospitalComment on above:Performed By: #### DIFF CBC, CMP ####[address] [address] USAEosinophils/100 leukocytes in Blood by Manual countOrdered By: Fabiola Marinelli on 37-21-9056Tzwdcufxrlx/100 WBC (Bld)27 %[address] Comment on above:Performed By: #### DIFF CBC, CMP ####[address] [address] USAImmunofixation,Serumon 07-12-2025 Immunofixation, SerumCommentNormal.The [facility] Physician GroupComment on above:Result Comment: No monoclonality detected.Performed By: #### VAHID SERUM, AFPTM, SPE ####[facility] ,Immunoglobulin A, Serum<6Jsllpo15-679Lqz [facility] GroupComment on above:Result Comment: Result confirmed on concentration.Performed By: #### VAHID SERUM, AFPTM, SPE ####[facility] ,Immunoglobulin G525 mg/wUNoovhb425-8110Qin [facility]ician GroupComment on above:Performed By: #### VAHID SERUM, AFPTM, SPE ####[facility] ,Immunoglobulin M, Serum<3Linflh97-197Ort [facility] Comment on above:Result Comment: Result confirmed on concentration. Performed at: [facility] [address] [id number] Door Glass Installer: Lang Knight PhD, Phone: [phone] By: #### VAHID SERUM, AFPTM, SPE ####[facility] ,Lymphocytes/100 leukocytes in Blood by Manual count Ordered By: Fabiola Marinelli on 14-36-4305Faisxvbneix/100 WBC (Bld)20 %Efzeid51-25 [facility] For RehabilitationComment on above:Performed By: #### DIFF CBC, CMP ####[facility] [address] [place] [address] [place] Monocytes/100 leukocytes in Blood by Manual countOrdered By: Fabiola Marinelli on 47-47-8588Wjjmbnqxp/100 WBC (Bld)14 %High2-11[facility] Comment on above:Performed By: #### DIFF CBC, CMP ####[facility] [address] [place] [address] USANo Panel InformationOrdered By: Fabiola Marinelli on 39-42-3739Gqo observed g/dLNot ObservedChildren'S Hospital For RehabilitationComment.[facility] Hospital For RehabilitationProtein Electrophoresis, Serumon 17-72-6700Yvakk-1-Globulin0.3 g/dLNormal0.0-0.4The [facility] Comment on above:Performed By: #### VAHID SERUM, AFPTM, SPE ####[facility] ,Zwvac-7-Zrflrphj0.7 g/dLNormal0.4-1.0The [facility] Comment on above:Performed By: #### VAHID SERUM, AFPTM, SPE ####[facility] ,Beta Globulin0.8 g/dLNormal0.7-1.3The [facility] Comment on above:Performed By: #### VAHID SERUM, AFPTM, SPE ####[facility] ,Gamma Globulin0.4 g/dLNormal0.4-1.8The [facility] Comment on above:Performed By: #### VAHID SERUM, AFPTM, SPE ####[facility] ,M-SpikeNot ObservedNormalNot ObservedThe [facility] Comment on above:Performed By: #### VAHID SERUM, AFPTM, SPE ####[facility] ,SPE-NoteCommentNormal.The [facility] Physician GroupComment on above:Result Comment: Protein electrophoresis scan will follow via computer, mail, or emulsion operator delivery. Performed at: [address] [id number] Door Glass Installer: Lang Knight PhD, Phone: [phone] BY:[facility] [place] [place], [place] [phone] MEDICAL DIRECTORARIEL BRUCE M.D.Performed By: #### VAHID SERUM, AFPTM, SPE ####[facility] ,Segmented neutrophils/100 leukocytes in Blood by Manual countOrdered By: Fabiola Marinelli on 20-57-8427Xxqxtmlhg neutrophils/100 WBC (Bld)38 %Tlo41-44IrixdpfcrChildren'S Hospital For RehabilitationComment on above:Performed By: #### DIFF CBC, CMP ####[facility] [place] [address] USASerum globulin measurement (mass/volume)Ordered By: Fabiola Marinelli on 47-91-3338Wpfmkuru (S) [Mass/Vol]2.3 g/dLNormal2.2-3.9[facility] For RehabilitationComment on above:Performed By: #### VAHID SERUM, AFPTM, SPE ####[facility] ,Serum or plasma IgA measurement (mass/volume)Ordered By: Fabiola Marinelli on 92-06-1919QuR [Mass/Vol]mg/eNXbv67-219TobiiqqniSumma Healtherum or plasma IgG measurement (mass/volume)Ordered By: Fabiola Marinelli on 98-35-0393WtB [Mass/Vol]525 mg/lSTsm027-1022SryrbrlcsSumma Healtherum or plasma IgM measurement (mass/volume)Ordered By: Fabiola Marinelli on 43-06-7094GoE [Mass/Vol]mg/hPEht63-650 Summa Healtherum or plasma albumin measurement (mass/volume)Ordered By: Fabiola Marinelli on 03-20-8460Ftusesn [Mass/Vol]3.1 g/dLNormal 2.9-4.4FOhioHealth Arthur G.H. Bing, MD, Cancer CenterComment on above:Performed By: #### VAHID SERUM, AFPTM, SPE ####[facility] ,Serum or plasma albumin/globulin mass ratioOrdered By: Fabiola Marinelli on 35-55-7595Besxgwk/Globulin [Mass ratio]1.3 {ratio}Normal0.7-1.7FOhioHealth Arthur G.H. Bing, MD, Cancer CenterComment on above:Performed By: #### VAHID SERUM, AFPTM, SPE ####[facility] ,Serum or plasma alpha 1 globulin measurement by electrophoresis (mass/volume)Ordered By: Fabiola Marinelli on 72-46-5585Tvoxy 1 globulin Elph [Mass/Vol]0.3 g/dL0.0-0.4FKettering Health Daytonerum or plasma alpha 2 globulin measurement by electrophoresis (mass/volume)Ordered By: Fabiola Marinelli on 38-67-6522Dvacg 2 globulin Elph [Mass/Vol] 0.7 g/dL0.4-1.0Summa Healtherum or plasma toqnj-6-shqspamearf tumor marker measurement (mass/volume)Ordered By: Fabiola Marinelli on 84-12-2910NTY.tumor marker [Mass/Vol]4.6 ng/mL0.0-9.2FKettering Health Daytonerum or plasma beta globulin measurement by electrophoresis (mass/volume)Ordered By: Fabiola Marinelli on 37-12-4253Lmsz globulin Elph [Mass/Vol]0.8 g/dL0.7-1.3FKettering Health Daytonerum or plasma gamma globulin measurement by electrophoresis (mass/volume)Ordered By: Fabiola Marinelli on 07-12-2025 Gamma globulin Elph [Mass/Vol]0.4 g/dL0.4-1.8[facility] Serum total protein measurementOrdered By: Fabiola Marinelli on 30-51-3925Oevfswy [Mass/Vol]5.4 g/dLNormal6.0-8.5FOhioHealth Arthur G.H. Bing, MD, Cancer CenterComment on above:Performed By: #### VAHID SERUM, AFPTM, SPE ####[facility] , Comprehensive Metabolic Panelon 57-84-0888Xzpprzq [Mass/Vol]3.6 g/dLNormal 3.5-5.7The [facility] Physician GroupComment on above:Performed By: #### CMP, SCAN CBC ####[address] [place] [address] USAAlbumin/Globulin [Mass ratio]1.9 {ratio}NormalThe [facility] Comment on above:Performed By: #### CMP, SCAN CBC ####[address] [place] [address] USAALP [Catalytic activity/Vol]101 U/L Tkeibi84-579Csn [facility] Phys[facility] GroupComment on above:Performed By: #### CMP, SCAN CBC ####[facility] [place] [address] USAALT [Catalytic activity/Vol]18 U/LNormal7-52The [facility] Physician GroupComment on above:Performed By: #### CMP, SCAN CBC ####[address] [place] [address] USAAnion gap [Moles/Vol]9.5 mmol/LNormal6.0-15.0The [facility] Physician GroupComment on above:Performed By: #### CMP, SCAN CBC ####[address] [place] [address] USAAST [Catalytic activity/Vol]29 U/PBnohzy22-55Esc [facility] Physician GroupComment on above:Performed By: #### CMP, SCAN CBC ####[address] [place] [address] USABilirubin [Mass/Vol]0.9 mg/dL Normal0.3-1.0The [facility] Physician GroupComment on above:Performed By: #### CMP, SCAN CBC ####[address] [address] USACalcium [Mass/Vol]8.9 mg/dLNormal8.6-10.3The [facility] Comment on above:Performed By: #### CMP, SCAN CBC ####[address] [address] USAChloride [Moles/Vol]106 mmol/LNormal 98-107The [facility] General HospitalComment on above:Performed By: #### CMP, SCAN CBC ####[address] [address] [place] CO2 [Moles/Vol]28.6 mmol/TMrlpbu85.0-31.0The [facility] Physician GroupComment on above:Performed By: #### CMP, SCAN CBC ####[address] [address] USACreatinine [Mass/Vol]0.88 mg/dLNormal0.60-1.20 The [facility] Physician GroupComment on above:Performed By: #### CMP, SCAN CBC ####[address] [address] [place] Creatinine Clr Calc Wmfflqyt95.55NormalThe [facility] Magee General HospitalComment on above:Result Comment: PERFORMED BY:[address] [place], [place] [phone] MEDICAL DIRECTORARIEL BRUCE M.D.Performed By: #### CMP, SCAN CBC ####[address] [address] USAGFR/1.73 sq M.predicted MDRD (S/P/Bld) [Vol rate/Area]mL/min/{1.73_m2}NormalThe [facility] Physician GroupComment on above: Performed By: #### CMP, SCAN CBC ####[address] USAGlobulin (S) [Mass/Vol]1.9 g/dLNormalThe [facility] Physician GroupComment on above:Performed By: #### CMP, SCAN CBC ####[place] [address] USAGlucose [Mass/Vol]106 mg/sXClzs39-727Zwf [facility] Physician GroupComment on above:Result Comment: Random Glucose Reference Range is dependent on time and content of last meal. Glucose of more than 200 mg/dL in a nonstressed, ambulatory subject supports the diagnosis of Diabetes Mellitus. ADA recommended reference rangePerformed By: #### CMP, SCAN CBC ####[place] [address] USAPotassium [Moles/Vol]4.1 mmol/LNormal3.5-5.1The [facility] Physician GroupComment on above:Performed By: #### CMP, SCAN CBC ####[address] USAProtein [Mass/Vol]5.5 g/dLLow 6.4-8.9The [facility] Physician GroupComment on above:Performed By: #### CMP, SCAN CBC ####[address] USASodium [Moles/Vol]140 mmol/GKqewqi587-866Pva [facility] Physician GroupComment on above:Performed By: #### CMP, SCAN CBC ####[address] USAUrea nitrogen [Mass/Vol]15 mg/dLNormal 7-25The [facility] Physician GroupComment on above:Performed By: #### CMP, SCAN CBC ####[address] [place] Comprehensive metabolic panelon 31-24-1854Wgxzwhk [Mass/Vol]3.6 g/dL3.5 - 5.7 g/dLNOAR HealthcareAlbumin/Globulin [Mass ratio]1.9 {ratio}[facility] HealthcareALP [Catalytic activity/Vol]101 U/L34 - 104 U/LNOMS HealthcareALT [Catalytic activity/Vol]18 U/L7 - 52 U/LNOMS HealthcareAnion gap [Moles/Vol]9.5 mmol/L6.0 - 15.0NOAR HealthcareAST [Catalytic activity/Vol]29 U/L13 - 39 U/LNOMS Healthcare Bilirubin [Mass/Vol]0.9 mg/dL0.3 - 1.0 mg/dLNOAR HealthcareCalcium [Mass/Vol]8.9 mg/dL8.6 - 10.3 mg/dLNOAR HealthcareChloride [Moles/Vol]106 mmol/L98 - 107 mmol/LNOMS HealthcareCO2 [Moles/Vol]28.6 mmol/L21.0 - 31.0 mmol/LNOMS Healthcare Creatinine (U) [Mass/Vol]0.88 mg/dL0.60 - 1.20 mg/dLNOAR HealthcareCREATININE CLR CALC WOJBAFDE28.55NOAR HealthcareESTIMATED GFRNOAR HealthcareGlobulin (S) [Mass/Vol]1.9 g/dLNOAR HealthcareGlucose [Mass/Vol]106 mg/sGCeuj16 - 100 mg/dL [facility] Hospital St. LouisComment on above:Random Glucose Reference Range is dependent on time and content of last meal. Glucose of more than 200 mg/dL in a nonstressed, ambulatory subject supports the diagnosis of Diabetes Mellitus. ADA recommended reference range Interpretation and review of laboratory resultsAbnormalNOAR HealthcarePotassium [Moles/Vol]4.1 mmol/L3.5 - 5.1 mmol/LNOMS HealthcareProtein [Mass/Vol]5.5 g/dL Low6.4 - 8.9 g/dLNOAR HealthcareSodium [Moles/Vol]140 mmol/L136 - 145 mmol/LNOMS HealthcareUrea nitrogen [Mass/Vol]15 mg/dL7 - 25 mg/dLNOOzarks Medical CenterNOAR HealthcareScan and CBCon 54-78-6106Vwfvkutnq (Bld) [#/Vol]0.0 10*3/uLNormal 0.0-0.2The [facility] Physician GroupComment on above:Performed By: #### CMP, SCAN CBC ####[place] [address] USABasophils/100 WBC (Bld)0.6 %Normal.The [facility] Physician GroupComment on above:Performed By: #### CMP, SCAN CBC ####[place] [address] USAEosinophils (Bld) [#/Vol]0.4 10*3/uLNormal 0.0-0.45The [facility] Physician GroupComment on above:Performed By: #### CMP, SCAN CBC ####[place] [address] USAEosinophils/100 WBC (Bld)24.4 %Normal.The [facility] Physician GroupComment on above:Performed By: #### CMP, SCAN CBC ####[place] [address] USAErythrocyte distribution width (RBC) [Ratio] 15.2 %Zukvmg47.9-15.3The [facility] Physician GroupComment on above:Performed By: #### CMP, SCAN CBC ####[place] [address] USAHematocrit (Bld) [Volume fraction]32.0 %Low34.0-46.4The [facility] Physician GroupComment on above:Performed By: #### CMP, SCAN CBC ####[place] [address] USAHemoglobin (Bld) [Mass/Vol]10.8 g/dLLow11.8-15.4The [facility]ician GroupComment on above: Performed By: #### CMP, SCAN CBC ####[place] [address] USALymphocytes (Bld) [#/Vol]0.3 10*3/uLLow1.00-4.8The [facility] Physician GroupComment on above:Performed By: #### CMP, SCAN CBC ####[address] [address] [place] Lymphocytes/100 WBC (Bld)18.7 %Normal.The [facility] Physician GroupComment on above:Performed By: #### CMP, SCAN CBC ####[address] [address] [facility] ([facility]) [Entitic mass]33.2 yySbygmk84.7-34.3 The [facility] Physician GroupComment on above:Performed By: #### CMP, SCAN CBC ####[address] [address] [facility] (RBC) [Entitic vol]98.4 wBYbiesa67-581Fse [facility] GroupComment on above:Performed By: #### CMP, SCAN CBC ####[address] [address] USAMean Corpuscular HGB Conc33.8 g/dLNormal 32.0-35.0The [facility] Physician GroupComment on above:Performed By: #### CMP, SCAN CBC ####[address] [address] USAMonocytes (Bld) [#/Vol]0.3 10*3/uLNormal0.0-0.8The [facility] Comment on above:Performed By: #### CMP, SCAN CBC ####[address] [address] USAMonocytes/100 WBC (Bld)21.0 %Normal. The [facility] Physician GroupComment on above:Performed By: #### CMP, SCAN CBC ####[address] [address] [place] Neutrophils (Bld) [#/Vol]0.5 10*3/uLLow1.8-7.7The [facility] Comment on above:Performed By: #### CMP, SCAN CBC ####[address] [address] USANeutrophils/100 WBC (Bld)35.3 %Normal .The [facility] Physician GroupComment on above:Performed By: #### CMP, SCAN CBC ####[address] [address] USANRBC% 0.2 /100{WBC}Normal0-0.5The [facility] HospitalComment on above:Performed By: #### CMP, SCAN CBC ####[address] [address] USAOvalocytesSlightNormShorePoint Health Punta Gorda Physician Group Comment on above:Performed By: #### CMP, SCAN CBC ####[address] [address] USAPlatelet EstimateDecreasedNormal NormalThe [facility] HospitalComment on above:Performed By: #### CMP, SCAN CBC ####[address] [address] [place] Platelet mean volume (Bld) [Entitic vol]8.5 fLNormal6.3-10.7The [facility] GroupComment on above:Performed By: #### CMP, SCAN CBC ####[address] [address] USAPlatelet Morphology NormalNormalNormShorePoint Health Punta Gorda Physician [facility] HospitalComment on above:Result Comment: PERFORMED BY:[address] [place], [place] [phone] MEDICAL BARBIE BRUCE M.D.Performed By: #### CMP, SCAN CBC ####[address] [address] USAPlatelets (Bld) [#/Vol]43 10*3/oODtc721-497Nxe [facility] GroupComment on above:Performed By: #### CMP, SCAN CBC ####[address] [address] USARBC (Bld) [#/Vol]3.25 10*6/uL Low3.60-5.00The [facility]ician GroupComment on above:Performed By: #### CMP, SCAN CBC ####[address] [address] USAWBC (Bld) [#/Vol]1.5 10*3/uLLow3.8-11.6The [facility] Comment on above:Performed By: #### CMP, SCAN CBC ####[facility] [address] [place] [address] USAWhite Blood Count1.5 [CFU]/mLLow 3.8-11.6The [facility] Physician GroupComment on above:Performed By: #### CMP, SCAN CBC ####[facility] [address] [place] [address] USAMain OR Intraoperative Recordon [id number] OR Intraoperative RecordMain OR Intraoperative Record IntraOp Document Type FTURO Summary Primary Physician: Marlon VALENZUELA MD Finalized Date/Time: 07/04/25 13:48:35 Pt. Name: MOJGAN PÉREZ /Sex: 1955 Female Med Rec #: [id number] Physician: Marlon VALENZUELA MD Financial #: [id number] Pt. Type: O Room/Bed: / Admit/Disch: 07/04/25 [...] Sawyer Jennings Role Performed Surgeon - Primary Private Branch Exchange Operator - Primary Scrub - Primary Time In 07/04/25 13:33:00 07/04/25 13:33:00 07/04/25 13:33:00 Time Out 07/04/25 13:43:00 07/04/25 13:43:00 07/04/25 13:43:00 Procedure CYSTOSCOPY LOCAL(.) CYSTOSCOPY LOCAL(.) CYSTOSCOPY LOCAL(.) Comments Last Modified By: Dedra SALDANA, Kaya Colmenares RN, Kaya Peters RN 07/04/25 Avis [place] 07/04/25 Avis P 07/04/25 13:48:13 13:48:13 13:48:13 Surgical Procedures FTURO Entry 1 Procedure Description Procedure CYSTOSCOPY LOCAL Modifiers . Surgeon Description CYSTOSCOPY Primary Procedure Yes Primary Surgeon Marlon VALENZUELA MD Start 07/04/25 13:36:00 Stop 07/04/25 13:40:00 Anesthesia Type Local Surgical Service Urology Wound Class 2 - Clean-Contaminated Last Modified By: Kaya Colmenares RN 07/04/25 13:48:12 General Case Data FTURO Pre-Care [...] Position Verified Availability Equipment, Medication Time Out Marlon VALENZUELA MD, Verified (If Participants Dedra SALDANA, Kaya Applicable) Franki Zambrano Kendall R Time Out [...] Signatures Signed By: Kaya Colmenares RN 07/04/25 13:48NoFairfield Medical CenterMain OR Preoperative Recordon 09-04-7412Zyrk OR Preoperative RecordMain OR Preoperative Record Holding Area Document Type FTURO Summary Primary Physician: Marlon VALENZUELA MD Finalized Date/Time: 07/04/25 13:12:12 Pt. Name: MOJGAN PÉREZ Meg /Sex: 1955 Female Med Rec #: [id number] Physician: Marlon VALENZUELA MD Financial #: [id number] Pt. Type: O Room/Bed: / Admit/Disch: 07/04/25 [...] Document Signatures Signed By: Xochitl Vallejo 07/04/25 13:12NoFairfield Medical CenterOperative Reporton [id number] ReportOperative Report Patient: MOJGAN PÉREZ Age: 69 [...] 2 months. We will then repeat her cystoscopy.[facility] Comment on above:Result Comment: Electronically Signed By: MIGUEL ANGEL JASSO, Marlon Gil\Date and Time Signed: 07/04/25 13:46 EDTIMMUNOGLOBULINS A/E/G/M, QN ([facility]) on 61-02-3431KIKFSDRGXLNVPH A, SERUMmg/dL87 - 352 mg/dLNOAR HealthcareComment on above:Result confirmed on concentration.IMMUNOGLOBULIN E6 - 495NOOzarks Medical Center Comment on above:Performed at: - [facility] [address] [id number] Door Glass Installer: Lang Knight PhD, Phone: [phone] Performed at: - [facility] [address] [id number] Door Glass Installer: Maxine Briones MD, Phone: [phone] IMMUNOGLOBULIN G606 mg/dL586 - 1602 mg/dLNOOzarks Medical CenterIMMUNOGLOBULIN M, SERUM mg/dL26 - 217 mg/dLNOAR HealthcareComment on above:Result confirmed on concentration.[facility] metabolic 2000 panelon 35-75-4022Qryzk gap [Moles/Vol]11 mmol/L10 - 20 mmol/[facility] CenterCalcium [Mass/Vol]8.2 mg/dLLow8.6 - 10.3 mg/dLUnTrinity Health System Twin City Medical CenterChloride [Moles/Vol]104 mmol/L98 - 107 mmol/[facility] CenterCO2 [Moles/Vol]26 mmol/L21 - 32 mmol/[facility] CenterCreatinine [Mass/Vol]0.93 mg/dL0.50 - 1.05 mg/dLUnTrinity Health System Twin City Medical CenterGFR/1.73 sq M.predicted among non-blacks MDRD (S/P/Bld) [Vol rate/Area]68 mL/min/{1.73_m2}- PINFUniTriHealth McCullough-Hyde Memorial HospitalComment on above: Calculations of estimated GFR are performed using the 2020 CKD-EPI Study Refit equation without therace variable for the IDMS-Traceable creatinine methods. https://jasn.asnjournals.org/content//ASN.9077676821 Glucose [Mass/Vol]90 mg/dL74 - 99 mg/dLUnTrinity Health System Twin City Medical Center Interpretation and review of laboratory resultsAbnormalUniTriHealth McCullough-Hyde Memorial HospitalPotassium [Moles/Vol]4.0 mmol/L3.5 - 5.3 mmol/[facility] CenterSodium [Moles/Vol]137 mmol/L136 - 145 mmol/[facility] Medical CenterUrea nitrogen [Mass/Vol]17 mg/dL6 - 23 mg/dLChillicothe HospitalUnTrinity Health System Twin City Medical CenterAnion gap [Moles/Vol]11 mmol/LNormal 10-20UnKettering Health MiamisburgComment on above:Performed By: #### 02858-0 #### SAMUEL RUIZ ([id number]) [facility] ([facility] [place]) [address] [facility], [place] [address]Stfmunq [Mass/Vol]8.2 mg/dLLow8.6-10.3Mart[facility] Ferry HospitalComment on above:Performed By: #### 30452-3 #### SAMUEL RUIZ ([id number]) [facility] ([facility] [place]) [address] [facility], [place] [address]Eqqewzoe [Moles/Vol]104 mmol/RKfmunz19-443QxmkejrzrvKettering Health MiamisburgComment on above:Performed By: #### 90476-5 #### SAMUEL RUIZ ([id number]) [facility] ([facility]) [address] [facility], [place] [address]HN2 [Moles/Vol]26 mmol/OCexpol21-46XdmoupsxmkKettering Health MiamisburgComment on above:Performed By: #### 30182-7 #### SAMUEL RUIZ ([id number]) [facility] ([facility] [place]) [address] [facility], [place] [address]Ewxujqxzux [Mass/Vol]0.93 mg/dLNormal0.50-1.05Mart[facility] Ferry HospitalComment on above:Performed By: #### 06690-5 #### SAMUEL RUIZ ([id number]) [facility] ([facility] [place] [place]) [address] [facility] [place], [place] [address]Oesjjcuant filtration rate68 mL/min/1.73m*2Normal>60UnKettering Health MiamisburgComment on above:Result Comment: Calculations of estimated GFR are performed using the 2020 CKD-EPI Study Refit equation without the race variable for the IDMS-Traceable creatinine methods. https://jasn.asnjournals.org/content/early/ASN.1959994163Snewhonlo By: #### 92696-5 #### SAMUEL RUIZ ([id number]) [facility] ([facility] [place]) [address] [place], [place] [address]Aabrbrm [Mass/Vol]90 mg/yQGtkwur71-38FsotodqvuwKettering Health MiamisburgComment on above:Performed By: #### 00445-9 #### SAMUEL RUIZ ([id number]) [facility] ([facility] [place]) [address] [place], [place] [address]Ejdjcxrgr [Moles/Vol]4.0 mmol/LNormal3.5-5.3UnKettering Health MiamisburgComment on above:Performed By: #### 51033-9 #### SAMUEL RUIZ ([id number]) [facility] ([facility] [place]) [address] [place], [place] [address]Miburw [Moles/Vol]137 mmol/SHevtzu898-090FrdactewfvKettering Health MiamisburgComment on above:Performed By: #### 55059-5 #### SAMUEL RUIZ ([id number]) [facility] ([facility] [place]) [address] [place], [place] [address]Kwbz nitrogen [Mass/Vol]17 mg/dLNormal6-23UnKettering Health MiamisburgComment on above:Performed By: #### 30885-8 #### SAMUEL RUIZ ([id number]) [facility] ([facility] [place]) [address] [place], [place] [address]APU panel Auto (Bld)on 56-96-1744Ndrotsvorfk distribution width (RBC) [Ratio]13.9 %11.5 - 14.5 %[facility] Hematocrit (Bld) [Volume fraction]32.2 %Low36.0 - 46.0 %[facility] HospitalHemoglobin (Bld) [Mass/Vol]10.5 g/dLLow12.0 - 16.0 g/dLUnTrinity Health System Twin City Medical CenterInterpretation and review of laboratory resultsAbnormal [facility] CenterH (RBC) [Entitic mass]32.7 pg26.0 - 34.0 pg [facility] HospitalMCHC (RBC) [Mass/Vol]32.6 g/dL32.0 - 36.0 g/dL [facility] CenterV (RBC) [Entitic vol]100 fL80 - 100 fL [facility] HospitalNucleated RBC/100 WBC (Bld) [Ratio]0.0 % [facility] HospitalPlatelets (Bld) [#/Vol]48 10*3/[facility]Medica Toledo HospitalComment on above:Platelet count verified by smear review RBC (Bld) [#/Vol]3.21 10*6/[facility] HospitalWBC (Bld) [#/Vol]1.6 10*3/[facility] HospitalUnTrinity Health System Twin City Medical CenterErythrocyte distribution width (RBC) [Ratio]13.9 %Voahsv95.5-14.5 [facility] HospitalComment on above:Performed By: #### 11975-0 #### SAMUEL RUIZ ([id number]) [facility] ([facility]) [address] [place], [place] [address]Uuhygpmojs (Bld) [Volume fraction]32.2 %Low36.0-46.0UnKettering Health MiamisburgComment on above:Performed By: #### 51483-1 #### SAMUEL RUIZ ([id number]) [facility] ([facility] [place]) [address] [place], [place] [address]Whmdpnwmlj (Bld) [Mass/Vol]10.5 g/dLLow12.0-16.0UnKettering Health MiamisburgComment on above:Performed By: #### 77405-6 #### SAMUEL RUIZ ([id number]) [facility] ([facility] [place]) [address] [place], [place] [address]MHC (RBC) [Entitic mass]32.7 uhVdrhpa69.0-34.0[facility]erry HospitalComment on above:Performed By: #### 29281-4 #### SAMUEL RUIZ ([id number]) [facility] ([facility] [place]) [address] [place] [address]LCSO (RBC) [Mass/Vol]32.6 g/sHIldzqw84.0-36.0[facility] Ferry HospitalComment on above:Performed By: #### 82865-8 #### SAMUEL RUIZ ([id number]) [facility] ([facility] [place]) [address] [place] [address]PAU (RBC) [Entitic vol]100 xWCxgwuj88-981LnmiwjwumuMartins Ferry HospitalComment on above:Performed By: #### 25703-3 #### SAMUEL RUIZ ([id number]) [facility] ([facility]) [address] [place] [address]Wqsflogvz RBC/100 WBC (Bld) [Ratio]0.0 /100 WBCsNormal0.0-0.0 [facility]erry HospitalComment on above:Performed By: #### 02716-8 #### SAMUEL RUIZ ([id number]) [facility] ([facility] [place] [facility]) [address] [place] [address]Mxcgoucth (Bld) [#/Vol]48 x10*3/oFPir379-381TzwyalprpaKettering Health MiamisburgComment on above:Result Comment: Platelet count verified by smear reviewPerformed By: #### 30455-7 #### SAMUEL RUIZ ([id number]) [facility] ([facility] [place] [facility]) [address] [place] [address]EZJ (Bld) [#/Vol]3.21 x10*6/uLLow4.00-5.20UnKettering Health MiamisburgComment on above:Performed By: #### 00202-1 #### SAMUEL RUIZ ([id number]) [facility] ([facility]) [address] [place], [place] [address]ZMG (Bld) [#/Vol]1.6 x10*3/uLLow4.4-11.3[facility] Ferry HospitalComment on above:Performed By: #### 87985-6 #### SAMUEL RUIZ ([id number]) [facility] ([facility] [place]) [address] [place], [place] [address]HI GUIDED RF ABLATION LIVERon 98-33-5930BK GUIDED RF ABLATION LIVERInterpreted By: Morro Calderon, STUDY: CT GUIDED RF ABLATION LIVER; US GUIDED RF ABLATION LIVER; 06/22/2025 9:06 am; 06/22/2025 8:53 am INDICATION: Signs/Symptoms:HCC microwave ablation; Signs/Symptoms:microwave ablation for HCC. COMPARISON: MR abdomen 04/17/2025 ACCESSION NUMBER(S): [id number]; [id number] ORDERING CLINICIAN: RAMAN NICHOLAS TECHNIQUE: TOP LIFT AND AUTOMATIC WINDOW REPAIRER: Morro Calderon MD CONSENT: The patient was informed of [...] on the CT scan table. An initial cable armorer CT was performed, demonstrating the 1.9 cm hypoattenuating lesion in segment 6 of the liver consistent with the known hepatocellular carcinoma. The skin was marked, prepped, and draped in a sterile fashion. Next, the liver was evaluated sonographically, demonstrating a 1.9 x 1.8 cm hypoechoic lesion in segment 6 corresponding to the cable armorer CT scan and prior imaging. Under direct [...] hepatocellular carcinoma as described above Signed by: Morro Calderon 06/22/2025 3:56 PM Dictation workstation: [id number] Street HospitalCT Guidance for ablation of tissue of Liveron 83-10-0398Qprrjgkpn Study observation (narrative)[facility] Work Phone: Coagulation tissue factor inducedon 02-32-3095NX Coag (PPP) [Time]14.3 sHigh9.8-12.4UnKettering Health Miamisburg Comment on above:Performed By: #### 5902-2 #### SAMUEL RUIZ ([id number]) [facility] ([facility] [place]) [address] [place], [place] [address]Qdihixq Test strip manual (Bld) [Mass/Vol]on 95-51-9465Jpxqsnt [Mass/Vol]93 mg/dL74 - 99 mg/dLUnTrinity Health System Twin City Medical CenterInterpretation and review of laboratory resultsNoDiley Ridge Medical CenterGlucose [Mass/Vol]93 mg/pQBdimox44-61IjorhxwjjpKettering Health MiamisburgComment on above:Performed By: #### 5902-2 #### SAMUEL RUIZ ([id number]) [facility] ([facility] [place]) [address] [place], [place] [address]Gkkcjvr [Mass/Vol]85 mg/dL74 - 99 mg/dLUnTrinity Health System Twin City Medical CenterInterpretation and review of laboratory resultsNormalUniRegency Hospital CompanyGlucose [Mass/Vol]85 mg/lCIaeaal03-69VpjcfoywvmMartins Ferry HospitalComment on above: Performed By: #### 2341-6 #### SAMUEL RUIZ ([id number]) [facility] ([facility] [place]) [address] [place], [place] [address]Gh Panel Informationon 57-66-0711SD and ultrasound-guided microwave ablation of a segment 6 hepatocellular carcinoma as described above Signed by: Morro Calderon 06/22/2025 3:56 PM Dictation workstation: [id number] MMODALInterpreted By: Morro Calderon, STUDY: CT GUIDED RF ABLATION LIVER; US GUIDED RF ABLATION LIVER; 06/22/2025 9:06 am; 06/22/2025 8:53 am INDICATION: Signs/Symptoms:HCC microwave ablation; Signs/Symptoms:microwave ablation for HCC. COMPARISON: MR abdomen 04/17/2025 ACCESSION NUMBER(S): [id number]; [id number] ORDERING CLINICIAN: RAMAN NICHOLAS TECHNIQUE: TOP LIFT AND AUTOMATIC WINDOW REPAIRER: Morro Calderon MD CONSENT: The patient was informed of [...] on the CT scan table. An initial cable armorer CT was performed, demonstrating the 1.9 cm hypoattenuating lesion in segment 6 of the liver consistent with the known hepatocellular carcinoma. The skin was marked, prepped, and draped in a sterile fashion. Next, the liver was evaluated sonographically, demonstrating a 1.9 x 1.8 cm hypoechoic lesion in segment 6 corresponding to the cable armorer CT scan and prior imaging. Under direct [...] consistent with a technically successful ablation. [facility] MMODALMorro Calderon MD - 06/22/2025 Interpreted By: Morro Calderon, STUDY: CT GUIDED RF ABLATION LIVER; US GUIDED RF ABLATION LIVER; 06/22/2025 9:06 am; 06/22/2025 8:53 am INDICATION: Signs/Symptoms:HCC microwave ablation; Signs/Symptoms:microwave ablation for HCC. COMPARISON: MR abdomen 04/17/2025 ACCESSION NUMBER(S): [id number]; [id number] ORDERING CLINICIAN: RAMAN NICHOLAS TECHNIQUE: TOP LIFT AND AUTOMATIC WINDOW REPAIRER: Morro Calderon MD CONSENT: The patient was informed of [...] on the CT scan table. An initial cable armorer CT was performed, demonstrating the 1.9 cm hypoattenuating lesion in segment 6 of the liver consistent with the known hepatocellular carcinoma. The skin was marked, prepped, and draped in a sterile fashion. Next, the liver was evaluated sonographically, demonstrating a 1.9 x 1.8 cm hypoechoic lesion in segment 6 corresponding to the cable armorer CT scan and prior imaging. Under direct [...] hepatocellular carcinoma as described above Signed by: Morro Calderon 06/22/2025 3:56 PM Dictation workstation: [id number] [facility] Work Phone: UnTrinity [facility] Medical Center Work Phone: PT Coag (PPP) [Time]on 01-04-4965KSX Coag (PPP) [Relative time]1.3 {INR}High0.9 - 1.1UnTrinity Health System [facility] Center Interpretation and review of laboratory resultsAbnormalUniTriHealth McCullough-Hyde Memorial HospitalUnTrinity Health System Twin City Medical CenterINR Coag (PPP) [Relative time]1.3High 0.9-1.1UnKettering Health MiamisburgComment on above:Performed By: #### 5902-2 #### SAMUEL RUIZ ([id number]) [facility] ([facility] [place]) [address] [place], [place] [address]Afejkee-ZDGfu 06-02-3280BY Coag (PPP) [Time]14.3 [facility] HospitalUS GUIDED RF ABLATION LIVERon 47-73-8760PN GUIDED RF ABLATION LIVERInterpreted By: Morro Calderon, STUDY: CT GUIDED RF ABLATION LIVER; US GUIDED RF ABLATION LIVER; 06/22/2025 9:06 am; 06/22/2025 8:53 am INDICATION: Signs/Symptoms:HCC microwave ablation; Signs/Symptoms:microwave ablation for HCC. COMPARISON: MR abdomen 04/17/2025 ACCESSION NUMBER(S): [id number]; [id number] ORDERING CLINICIAN: RAMAN NICHOLAS TECHNIQUE: TOP LIFT AND AUTOMATIC WINDOW REPAIRER: Morro Calderon MD CONSENT: The patient was informed of [...] on the CT scan table. An initial cable armorer CT was performed, demonstrating the 1.9 cm hypoattenuating lesion in segment 6 of the liver consistent with the known hepatocellular carcinoma. The skin was marked, prepped, and draped in a sterile fashion. Next, the liver was evaluated sonographically, demonstrating a 1.9 x 1.8 cm hypoechoic lesion in segment 6 corresponding to the cable armorer CT scan and prior imaging. Under direct [...] hepatocellular carcinoma as described above Signed by: Morro Calderon 06/22/2025 3:56 PM Dictation workstation: [id number] Street HospitalUS Guidance for ablation of tissue of Liveron 14-23-6912Eoolwusqv Study observation (narrative)[facility] Work Phone: basophils/100 leukocytes in Blood by Manual count Ordered By: Fabiola Marinelli on 71-46-7520Cwkvsgeix/100 WBC (Bld)1 %Normal0-2FOhioHealth Arthur G.H. Bing, MD, Cancer CenterComment on above:Performed By: #### IMM GAME ####[facility] ,#### DIFF CBC ####[address] [address] USAComprehensive Metabolic Panelon 08-13-3285Hftouyd [Mass/Vol]3.5 g/dLNormal3.5-5.7The [facility]alachian Physician GroupComment on above: Performed By: #### CMP ####[address] [address] USAAlbumin/Globulin [Mass ratio]1.8 {ratio}NormalThe Warren General HospitalComment on above:Performed By: #### CMP ####[address] [address] USAALP [Catalytic activity/Vol]84 U/WHldghz61-969Kza [facility]ician [facility] HospitalComment on above: Performed By: #### CMP ####[address] [address] USAALT [Catalytic activity/Vol]13 U/LNormal7-52The [facility] General HospitalComment on above:Performed By: #### CMP ####[address] [address] USAAnion gap [Moles/Vol] 7.6 mmol/LNormal6.0-15.0The [facility]ian Physician GroupComment on above:Performed By: #### CMP ####[address] [address] USAAST [Catalytic activity/Vol]27 U/ZRkieti37-88Evk [facility] Physician GroupComment on above:Performed By: #### CMP ####[address] [address] USABilirubin [Mass/Vol]0.8 mg/dLNormal 0.3-1.0The [facility]ian Physician GroupComment on above:Performed By: #### CMP ####[address] [address] USACalcium [Mass/Vol]8.6 mg/dLNormal8.6-10.3The [facility]ian Physician GroupComment on above: Performed By: #### CMP ####[address] [address] USAChloride [Moles/Vol]106 mmol/NIxpcin10-914Qpz [facility] Physician GroupComment on above:Performed By: #### CMP ####[address] [address] USACO2 [Moles/Vol]28.3 mmol/KMiavqg97.0-31.0The [facility]ian Physician GroupComment on above:Performed By: #### CMP ####[address] [address] USACreatinine [Mass/Vol]0.91 mg/dLNormal0.60-1.20The [facility] Comment on above:Performed By: #### CMP ####[place] [address] USACreatinine Clr Calc Ljyenujk19.46NormShorePoint Health Punta Gorda Physician GroupComment on above:Result Comment: PERFORMED BY:[address] [place], [place] [phone] MEDICAL BARBIE BRUCE M.D.Performed By: #### CMP ####[address] [address] USAGFR/1.73 sq M.predicted MDRD (S/P/Bld) [Vol rate/Area]mL/min/{1.73_m2}NormalThe [facility]alachian Physician GroupComment on above:Performed By: #### CMP ####[address] [address] USAGlobulin (S) [Mass/Vol]2.0 g/dLNoCritical access hospital Physician GroupComment on above:Performed By: #### CMP ####[place] [address] USAGlucose [Mass/Vol]122 mg/hXEcfi64-495Dxb [facility] Physician GroupComment on above: Result Comment: Random Glucose Reference Range is dependent on time and content of last meal. Glucose of more than 200 mg/dL in a nonstressed, ambulatory subject supports the diagnosis of Diabetes Mellitus. ADA recommended reference rangePerformed By: #### CMP ####[place] [address] USAPotassium [Moles/Vol]3.9 mmol/LNormal3.5-5.1The [facility]ian Physician GroupComment on above:Performed By: #### CMP ####[place] [address] USAProtein [Mass/Vol]5.5 g/dLLow6.4-8.9The [facility]achian Physician GroupComment on above:Performed By: #### CMP ####[place] [address] [place] Sodium [Moles/Vol]138 mmol/IFkmhin129-589Yxg [facility] Physician GroupComment on above:Performed By: #### CMP ####[place] [address] USAUrea nitrogen [Mass/Vol]14 mg/dLNormal7-25The [facility]achian Physician GroupComment on above:Performed By: #### CMP ####[place] [address] USAComprehensive metabolic panelon 12-25-5666Otpzgud [Mass/Vol]3.5 g/dL3.5 - 5.7 g/dLNOMS HealthcareAlbumin/Globulin [Mass ratio]1.8 {ratio}NOMS HealthcareALP [Catalytic activity/Vol]84 U/L34 - 104 U/LNOMS HealthcareALT [Catalytic activity/Vol]13 U/L 7 - 52 U/LNOMS HealthcareAnion gap [Moles/Vol]7.6 mmol/L6.0 - 15.0NOMS HealthcareAST [Catalytic activity/Vol]27 U/L13 - 39 U/LNOMS HealthcareBilirubin [Mass/Vol]0.8 mg/dL0.3 - 1.0 mg/dLNOMS HealthcareCalcium [Mass/Vol]8.6 mg/dL8.6 - 10.3 mg/dLNOMS HealthcareChloride [Moles/Vol]106 mmol/L98 - 107 mmol/LNOMS HealthcareCO2 [Moles/Vol]28.3 mmol/L21.0 - 31.0 mmol/LNOMS HealthcareCreatinine (U) [Mass/Vol]0.91 mg/dL0.60 - 1.20 mg/dLNOAR HealthcareCREATININE CLR CALC UQLVQKXU12.46NOMS HealthcareESTIMATED GFRNOMS HealthcareGlobulin (S) [Mass/Vol]2 g/dLNOMS HealthcareGlucose [Mass/Vol]122 mg/aQQvyn76 - 100 mg/dLNOAR Healthcare Comment on above:Random Glucose Reference Range is dependent on time and content of last meal. Glucose of more than 200 mg/dL in a nonstressed, ambulatory subject supports the diagnosis of Diabetes Mellitus. ADA recommended reference range Interpretation and review of laboratory resultsAbnormalNOMS HealthcarePotassium [Moles/Vol]3.9 mmol/L3.5 - 5.1 mmol/LNOMS HealthcareProtein [Mass/Vol]5.5 g/dL Low6.4 - 8.9 g/dLNOAR HealthcareSodium [Moles/Vol]138 mmol/L136 - 145 mmol/LNOMS HealthcareUrea nitrogen [Mass/Vol]14 mg/dL7 - 25 mg/dLNOAR HealthcareNOMS HealthcareDiff and CBCon 83-08-9240Njhe form neutrophils/100 WBC (Bld)1 %Normal 0-5The [facility]achian Physician GroupComment on above:Performed By: #### IMM GAME ####[facility] ,#### DIFF CBC ####[facility] [place] [address] USAEosinophils/100 WBC (Bld)23 %High1-3The [facility]alachian Physician GroupComment on above:Performed By: #### IMM GAME ####[facility] ,#### DIFF CBC ####[facility] [place] [address] USAErythrocyte distribution width (RBC) [Ratio] 14.9 %Wvikii25.9-15.3The [facility]alachian Physician GroupComment on above:Performed By: #### IMM GAME ####[facility] ,#### DIFF CBC ####[address] [address] USAGiant Platelet Tally2 /100{WBC}NormalThe [facility] Appalachian Physician GroupComment on above:Performed By: #### IMM GAME ####[facility] ,#### DIFF CBC ####[address] [address] USAHematocrit (Bld) [Volume fraction]32.1 %Low34.0-46.4The [facility]alachian Physician GroupComment on above:Performed By: #### IMM GAME ####[facility] ,#### DIFF CBC ####[address] [address] USAHemoglobin (Bld) [Mass/Vol]10.9 g/dL Low11.8-15.4The [facility]ian Physician GroupComment on above:Performed By: #### IMM GAME ####[facility] ,#### DIFF CBC ####[facility] [address] [place] [address] USALarge PlateletsSlightNormalThe [facility]alachian Physician GroupComment on above:Result Comment: PERFORMED BY:[place] [address] [address] TSERINGRobertoErnaROMA, [place] [phone] MEDICAL BARBIE BRUCE M.D.Performed By: #### IMM GAME ####[facility] ,#### DIFF CBC ####[address] [address] USALymphocytes/100 WBC (Bld)30 %Hfgnmz35-51Weu [facility] Physician GroupComment on above:Performed By: #### IMM GAME ####[facility] ,#### DIFF CBC ####[facility] [place] [address] [facility] ([facility]BC) [Entitic mass]33.3 fvRxlmfr82.7-34.3 The [facility]achian Physician GroupComment on above:Performed By: #### IMM GAME ####[facility] ,#### DIFF CBC ####[address] [address] [facility] (RBC) [Entitic vol]98.1 aEKijedg53-796Hmr [facility] Physician GroupComment on above:Performed By: #### IMM GAME ####[facility] ,#### DIFF CBC ####[place] [address] USAMean Corpuscular HGB Conc34.0 g/dLNormal 32.0-35.0The [facility]ian Physician GroupComment on above:Performed By: #### IMM GAME ####[facility] ,#### DIFF CBC ####[facility] [address] [place] [address] USAMicrocytosisSlightNormShorePoint Health Punta Gorda Physician GroupComment on above:Performed By: #### IMM GAME ####[facility] ,#### DIFF CBC ####[address] [address] USAMonocytes/100 WBC (Bld)9 %Normal2-11The [facility] Physician GroupComment on above:Performed By: #### IMM GAME ####[facility] ,#### DIFF CBC ####[address] [address] USAPlatelet EstimateDecreasedNormalNoCritical access hospital Physician GroupComment on above:Performed By: #### IMM GAME ####[facility] ,#### DIFF CBC ####[place] [address] USAPlatelet mean volume (Bld) [Entitic vol]8.1 fLNormal 6.3-10.7The [facility] Physician GroupComment on above:Result Comment: PERFORMED BY:[place] [address] [place] [place], [place] [phone] MEDICAL DIRECTORARIEL BRUCE M.D.Performed By: #### IMM GAME ####[facility] ,#### DIFF CBC ####[address] [address] USAPlatelets (Bld) [#/Vol]43 10*3/iNCzx853-499Grz [facility] Physician GroupComment on above:Performed By: #### IMM GAME ####[facility] ,#### DIFF CBC ####[address] [address] USAPolychromasiaSlightNormalThe [facility]ian Physician GroupComment on above:Performed By: #### IMM GAME ####[facility] ,#### DIFF CBC ####[address] [address] USARBC (Bld) [#/Vol]3.27 10*6/uLLow3.60-5.00The [facility] Physician GroupComment on above:Performed By: #### IMM GAME ####[facility] ,#### DIFF CBC ####[address] [address] USASegmented neutrophils/100 WBC (Bld)36 %Low 50-70The [facility] Physician GroupComment on above:Performed By: #### IMM GAME ####[facility] ,#### DIFF CBC ####[address] [address] USAWBC (Bld) [#/Vol]1.6 10*3/uLLow3.8-11.6The [facility] Physician GroupComment on above:Performed By: #### IMM GAME ####[facility] ,#### DIFF CBC ####[address] [address] USAWhite Blood Count1.6 [CFU]/mLLow3.8-11.6The [facility] Physician GroupComment on above:Performed By: #### IMM GAME ####[facility] ,#### DIFF CBC ####[place] [address] USAGiant platelets/100 leukocytes [Ratio] in Blood by Manual countOrdered By: Fabiola Marinelli on 50-05-1085Klarf platelets/100 WBC Manual cnt (Bld) [Ratio]2 /100{WBC}[facility]'S Hospital For RehabilitationIgE [Units/volume] in Serum or PlasmaOrdered By: Fabiola Marinelli on 63-98-5892ArC Qn<2 [IU]/mLLow6-495[facility] For RehabilitationImmunoglobulins A/E/G/M, Qnon 17-22-5841Xfsteimydotoma A, Serum<8Yswfeg18-339Ftw [facility] Comment on above:Result Comment: Result confirmed on concentration.Performed By: #### IMM GAME ####[facility] ,#### DIFF CBC ####[place] [address] USAImmunoglobulin E<0Owmnff6-034 The [facility]alachian Physician GroupComment on above:Result Comment: Performed at: - [facility] [address] [id number] Door Glass Installer: Lang Knight PhD, Phone: [phone] Performed at: - [facility] [address] [id number] Door Glass Installer: Maxine Briones MD, Phone: [phone] BY:[place] [address] [place], [place] [phone] MEDICAL DIRECTORGIULIANO BRUCE M.D.Performed By: #### IMM GAME ####[facility] ,#### DIFF CBC ####[address] [place] [address] USAImmunoglobulin G606 mg/dL Dsbhhu675-9757Shu [facility] Physician GroupComment on above:Performed By: #### IMM GAME ####[facility] ,#### DIFF CBC ####[place] [address] [place] [address] USAImmunoglobulin M, Serum<9Biqjia23-688 The [facility] Physician GroupComment on above:Result Comment: Result confirmed on concentration.Performed By: #### IMM GAME ####[facility] ,#### DIFF CBC ####[address] [address] [place] Microcytes LM Ql (Bld)Ordered By: Fabiola Marinelli on 57-56-2557Wxuyhbmuzq Ql (Bld) [facility] Children's HospitalPlatelet Pheresis LRon 77-56-4604Juhwhxre Pheresis LRTRANSFUSED 06/20/25 1431NormalThe [facility] Physician GroupType and Screenon 59-27-3073JVG and Rh group Nom (Bld)Blood group A Rh(D) positiveNormal The [facility] Physician [facility] HospitalComment on above:Order Comment: Transfuse now? Y Number of units to transfuse now? 1Result Comment: PERFORMED BY:[address] [place], [place] [phone] MEDICAL DIRECTORWEI HARE M.D.AFP tumor markeron 53-70-0074MUP TUMOR MARKER, SERUM. ng/mLNOMS HealthcareComment on above:Test not performed. Insufficient specimen to perform or complete analysis. CONTACTED YOUR FACILITY ON 06-16-2025 [facility] Electrochemiluminescence Immunoassay (ECLIA) Values obtained with different assay methods or kits cannot be used interchangeably. Results cannot be interpreted as absolute evidence of the presence or absence of malignant disease. This test is not interpretable in females. [facility] LouisUrine Cytology ( Labs)on 39-52-0054Fxnvs CytologyDiagnosis Info Invalid Interpretation Wayne HospitalComment on above:Result Comment: A:Urine,Urine:Voided Interpretation - Adequate cellularity for evaluation. CPT 86960 MicroScopic Description - Adequacy - Gross Description Site ID:A color Yellow fixative Alcohol Specimen designated Urine received in alcohol preservative and labeled with the patient???s name, consists of 40ml clear yellow fluid. Electronically signed by : on: 06/15/2025 15:44:33Performed By: #### [id number] #### [facility] [address] [place] [address] [place], [place] [address]SNS Tumor Marker, Serumon 12-45-5565HKW Tumor Marker, Serum Normal.The [facility]alachian Physician GroupComment on above:Result Comment: Test not performed. Insufficient specimen to perform or complete analysis. CONTACTED YOUR FACILITY ON 06-16-2025 [facility] Electrochemiluminescence Immunoassay (ECLIA) Values obtained with different assay methods or kits cannot be used interchangeably. Results cannot be interpreted as absolute evidence of the presence or absence of malignant disease. This test is not interpretable in females.PERFORMED BY:[address]ETErnaMOWEAQUA, [place] [phone] MEDICAL DIRECTORARIEL BRUCE M.D.Performed By: #### CMP, SCAN CBC ####[facility] [address] [place] [address] [facility]ENTERB#### AFPTM ####[facility] ,Alanine aminotransferase [Enzymatic activity/volume] in Serum or PlasmaOrdered By: Fabiola Marinelli on 70-62-3882SUJ [Catalytic activity/Vol]12 U/LNormal7-52[facility] Hospital For RehabilitationComment on above:Performed By: #### CMP, SCAN CBC ####[facility] [address] [place] [address] [place]#### AFPTM ####[facility] ,Albumin [Mass/volume] in Serum or Plasma by Bromocresol green (BCG) dye binding methoOrdered By: Fabiola Marinelli on 06-14-2025 Albumin BCG dye [Mass/Vol]3.5 g/dL3.5-5.7FOhioHealth Arthur G.H. Bing, MD, Cancer Center Alkaline phosphatase [Enzymatic activity/volume] in Serum or PlasmaOrdered By: Fabiola Marinelli on 64-91-0289CGH [Catalytic activity/Vol]92 U/CCaijuu22-457BetefaxogChildren'S Hospital For RehabilitationComment on above:Performed By: #### CMP, SCAN CBC ####[place] [address] [place]#### AFPTM ####[facility] ,Anisocytosis [Presence] in Blood by Light microscopyOrdered By: Fabiola Marinelli on 55-40-5472Jlsxrsuqfkww Ql (Bld)SlightNormal [facility] Hospital For RehabilitationComment on above:Performed By: #### CMP, SCAN CBC ####[place], [place] [address] [place]#### AFPTM ####[facility] ,Aspartate aminotransferase [Enzymatic activity/volume] in Serum or PlasmaOrdered By: Fabiola Marinelli on 03-28-3893NDM [Catalytic activity/Vol]27 U/CByiylr38-16HreketmzkChildren'S Hospital For Rehabilitation Comment on above:Performed By: #### CMP, SCAN CBC ####[place] [address] [place]#### AFPTM ####[facility] , Basophils [#/volume] in Blood by Automated countOrdered By: Fabiola Marinelli on 87-20-3659Ynikzcmgi (Bld) [#/Vol]0.0 10*3/uLNormal0.0-0.2FOhioHealth Arthur G.H. Bing, MD, Cancer CenterComment on above:Performed By: #### CMP, SCAN CBC ####[place] [address] [place]#### AFPTM ####[facility] ,Basophils/100 leukocytes in Blood by Automated count Ordered By: Fabiola Marinelli on 19-57-3115Qrlcxhnts/100 WBC (Bld)0.4 %Normal.[facility] Hospital For RehabilitationComment on above:Performed By: #### CMP, SCAN CBC ####[place] [address] [place]#### AFPTM ####[facility] ,Bilirubin.total [Mass/volume] in Serum or Plasma Ordered By: Fabiola Yves on 67-76-9151Qdpkovxul [Mass/Vol]0.9 mg/dLNormal0.3-1.0 [facility] For RehabilitationComment on above:Performed By: #### CMP, SCAN CBC ####[place] [address] [place]#### AFPTM ####[facility] ,Calcium [Mass/volume] in Serum or Plasma Ordered By: Fabiola Yves on 50-96-5729Mzgzruf [Mass/Vol]8.9 mg/dLNormal8.6-10.3 [facility] For RehabilitationComment on above:Performed By: #### CMP, SCAN CBC ####[address]#### AFPTM ####[facility] ,Carbon dioxide, total [Moles/volume] in Serum or PlasmaOrdered By: Fabiola Yves on 45-14-0585OY5 [Moles/Vol]29.5 mmol/L Kacbpz13.0-31.0Children[facility] Hospital For RehabilitationComment on above:Performed By: #### CMP, SCAN CBC ####[place] [address] [place]#### AFPTM ####[facility] ,Chloride [Moles/volume] in Serum or PlasmaOrdered By: Fabiola Yves on 81-11-6755Jdkqhqgn [Moles/Vol]104 mmol/L Ebfcou87-570PcbbctdysChildren'S Hospital For RehabilitationComment on above:Performed By: #### CMP, SCAN CBC ####[place] [address] [place]#### AFPTM ####[facility] ,Comprehensive Metabolic Panelon 15-61-2405Fhiqmhs [Mass/Vol]3.5 g/dLNormal3.5-5.7The [facility] Comment on above:Performed By: #### CMP, SCAN CBC ####[place] [address] [place]#### AFPTM ####[facility] , Creatinine Clr Calc Ulscimbu34.54NormMiddletown Hospitale [facility]alachian Physician GroupComment on above:Result Comment: PERFORMED BY:[place] [address] [address] ROSADOW[place], [place] [phone] MEDICAL DIRECTORARIEL BRUCE M.D.Performed By: #### CMP, SCAN CBC ####[facility]#### AFPTM ####[facility] ,GFR/1.73 sq M.predicted MDRD (S/P/Bld) [Vol rate/Area]mL/min/{1.73_m2}NormalThe [facility]alachian Physician GroupComment on above:Performed By: #### CMP, SCAN CBC ####[address]#### AFPTM ####[facility] ,Comprehensive metabolic panelon 78-48-6039Whqzqly [Mass/Vol]3.5 g/dL3.5 - 5.7 g/dLNOMS HealthcareAlbumin/Globulin [Mass [...] mg/dL0.60 - 1.20 mg/dLNOMS HealthcareCREATININE CLR CALC NTQGVADC33.54NOMS HealthcareESTIMATED GFRNOMS HealthcareGlobulin (S) [Mass/Vol]2 g/dLNOMS HealthcareGlucose [Mass/Vol] 96 mg/dL70 - 100 mg/dLFILLMORE COMMUNITY MEDICAL [facility]ENTER HealthcareComment on above:Random Glucose Reference Range is dependent on time and content of last meal. Glucose of more than 200 mg/dL in a nonstressed, ambulatory subject supports the diagnosis of Diabetes Mellitus. ADA recommended reference range Interpretation and review of laboratory resultsAbnormalNOMS HealthcarePotassium [Moles/Vol]4.5 mmol/L3.5 - 5.1 mmol/LNOMS HealthcareProtein [Mass/Vol]5.5 g/dL Low6.4 - 8.9 g/dLNOAR HealthcareSodium [Moles/Vol]136 mmol/L136 - 145 mmol/LNOMS HealthcareUrea nitrogen [Mass/Vol]15 mg/dL7 - 25 mg/dLMercy Hospital St. LouisNOAR HealthcareCreatinine [Mass/volume] in Serum or PlasmaOrdered By: Fabiola Marinelli on 22-72-6136Dvlyxafqxe [Mass/Vol]1.00 mg/dLNormal0.60-1.20[facility] Hospital For RehabilitationComment on above:Performed By: #### CMP, SCAN CBC ####[facility]#### AFPTM ####[facility] ,Eosinophils [#/volume] in Blood by Automated count Ordered By: Fabiola Marinelli on 94-74-9903Eontydvmhrh (Bld) [#/Vol]0.5 10*3/uLHigh 0.0-0.45[facility] Hospital For RehabilitationComhenry ford [facility] hospital on above:Performed By: #### CMP, SCAN CBC ####[facility] [address] [place] [address] [place]#### AFPTM ####[facility] ,Eosinophils/100 leukocytes in Blood by Automated countOrdered By: Fabiola Marinelli on 36-54-5513Adjvsiraoac/100 WBC (Bld)29.1 %Normal.[facility] Hospital For RehabilitationComment on above:Performed By: #### CMP, SCAN CBC ####[facility] [place] [address] [place]#### AFPTM ####[facility] ,Erythrocyte distribution width [Ratio] by Automated countOrdered By: Fabiola Berumense on 06-14-2025 Erythrocyte distribution width (RBC) [Ratio]14.7 %Hkjldw58.9-15.3FOhioHealth Arthur G.H. Bing, MD, Cancer CenterComment on above:Performed By: #### CMP, SCAN CBC ####[place] [address] [place]#### AFPTM ####[facility] ,Erythrocyte morphology finding [Identifier] in BloodOrdered By: Fabiola Yves on 61-78-8374KIQ morphology finding Nom (Bld)Normal NormalNormalChildren'S Hospital For RehabilitationComment on above:Performed By: #### CMP, SCAN CBC ####[place] [address] [place]#### AFPTM ####[facility] ,Erythrocytes [#/volume] in Blood by Automated countOrdered By: Fabiola Yves on 35-36-0555URU (Bld) [#/Vol]3.27 10*6/uLLow3.60-5.00Children[facility] Hospital For RehabilitationComment on above:Performed By: #### CMP, SCAN CBC ####[place] [address] [place]#### AFPTM ####[facility] ,Glucose [Mass/volume] in Serum or PlasmaOrdered By: Fabiola Yves on 15-82-5823Ouxchin [Mass/Vol]96 mg/fYEsvytu68-100AvsrpcsvoChildren'S Hospital For RehabilitationComment on above: Result Comment: Random Glucose Reference Range is dependent on time and content of last meal. Glucose of more than 200 mg/dL in a nonstressed, ambulatory subject supports the diagnosis of Diabetes Mellitus. ADA recommended reference rangePerformed By: #### CMP, SCAN CBC ####[place] [address] [place]#### AFPTM ####[facility] , Hematocrit [Volume Fraction] of Blood by Automated countOrdered By: Fabiola Marinelli on 69-63-1012Rltsdfzems (Bld) [Volume fraction]32.2 %Low34.0-46.4FOhioHealth Arthur G.H. Bing, MD, Cancer CenterComment on above:Performed By: #### CMP, SCAN CBC ####[facility] [place] [address] [place]#### AFPTM ####[facility] ,Hemoglobin [Mass/volume] in BloodOrdered By: Fabiola Marinelli on 60-53-3984Osmdsuidij (Bld) [Mass/Vol]10.8 g/dLLow11.8-15.4FOhioHealth Arthur G.H. Bing, MD, Cancer CenterComment on above:Performed By: #### CMP, SCAN CBC ####[place] [address] [place] [address] [place]#### AFPTM ####[facility] ,Leukocytes [#/volume] corrected for nucleated erythrocytes in Blood by Automated counOrdered By: Fabiola Marinelli on 41-82-7142ACW corrected for nucl RBC Auto (Bld) [#/Vol]1.6 10*3/uLLow3.8-11.6FOhioHealth Arthur G.H. Bing, MD, Cancer CenterLeukocytes [#/volume] in Blood by Automated countOrdered By: Fabiola Marinelli on 79-70-9849XNV (Bld) [#/Vol]1.6 10*3/uLLow3.8-11.6FOhioHealth Arthur G.H. Bing, MD, Cancer CenterComment on above:Performed By: #### CMP, SCAN CBC ####[facility] [place] [address] [place]#### AFPTM ####[facility] ,Lymphocytes [#/volume] in Blood by Automated countOrdered By: Fabiola Berumense on 43-81-5453Kvwafnmonvu (Bld) [#/Vol]0.3 10*3/uLLow 1.00-4.8Children[facility] Hospital For RehabilitationComment on above:Performed By: #### CMP, SCAN CBC ####[facility] [place] [address] [place]#### AFPTM ####[facility] ,Lymphocytes/100 leukocytes in Blood by Automated countOrdered By: Fabiola Berumense on 49-60-5399Wixzjohvfkg/100 WBC (Bld)21.7 %Normal.[facility] Hospital For RehabilitationComment on above:Performed By: #### CMP, SCAN CBC ####[facility] [place] [address] [place]#### AFPTM ####[facility] ,MCH [Entitic mass] by Automated countOrdered By: Fabiola Yves on 79-58-9414VQQ (RBC) [Entitic mass]33.0 dqAueyad77.7-34.3FOhioHealth Arthur G.H. Bing, MD, Cancer CenterComment on above: Performed By: #### CMP, SCAN CBC ####[place] [address] [place]#### AFPTM ####[facility] ,MCHC Auto (RBC) [Mass/Vol]Ordered By: Fabiola Yves on 48-41-1003WHBO (RBC) [Mass/Vol]33.5 g/dL 32.0-35.0Children[facility] Hospital For RehabilitationMCV [Entitic volume] by Automated countOrdered By: Fabiola Marinelli on 38-70-3936AWD (RBC) [Entitic vol]98.5 fLNormal 80-100Children[facility] Hospital For RehabilitationComment on above:Performed By: #### CMP, SCAN CBC ####[place] [address] [place]#### AFPTM ####[facility] ,Monocytes [#/volume] in Blood by Automated countOrdered By: Fabiola Yves on 96-64-4530Cttyaxdjc (Bld) [#/Vol]0.3 10*3/uLNormal0.0-0.8[facility] Hospital For RehabilitationComment on above:Performed By: #### CMP, SCAN CBC ####[place] [address] [place] [address] [place]#### AFPTM ####[facility] ,Monocytes/100 leukocytes in Blood by Automated countOrdered By: Fabiola Marinelli on 06-14-2025 Monocytes/100 WBC (Bld)19.4 %Normal.[facility] Hospital For RehabilitationComment on above:Performed By: #### CMP, SCAN CBC ####[place] [address] [place] [address] [place]#### AFPTM ####[facility] , Neutrophils [#/volume] in Blood by Automated countOrdered By: Fabiola Marinelli on 75-89-7266Cutgjitwlmk (Bld) [#/Vol]0.5 10*3/uLLow1.8-7.7FOhioHealth Arthur G.H. Bing, MD, Cancer CenterComment on above:Performed By: #### CMP, SCAN CBC ####[place] [address] [place]#### AFPTM ####[facility] ,Neutrophils/100 leukocytes in Blood by Automated count Ordered By: Fabiola Marinelli on 53-89-5865Vhfznhafgrm/100 WBC (Bld)29.4 %Normal. [facility] Hospital For RehabilitationComment on above:Performed By: #### CMP, SCAN CBC ####[place] [address] [place] [address] [place]#### AFPTM ####[facility] ,No Panel InformationOrdered By: Fabiola Marinelli on 06-14-2025> 60.0 mL/MinChildren'S Hospital For Rehabilitation56.54[facility] For RehabilitationNucleated erythrocytes [Presence] in Blood by Automated countOrdered By: Fabiola Marinelli on 83-09-2853Qyilkdbnj RBC Auto Ql (Bld)0.0 /100{WBC} 0-0.5FOhioHealth Arthur G.H. Bing, MD, Cancer CenterPlatelet adequacy [Presence] in Blood by Light microscopyOrdered By: Fabiola Marinelli on 51-12-8248Ujtmbrxjp LM Ql (Bld) DecreasedNormalChildren'S Hospital For RehabilitationPlatelet mean volume [Entitic volume] in Blood by Automated countOrdered By: Fabiola Marinelli on 95-24-3813Zgjyjmqt mean volume (Bld) [Entitic vol]9.3 fLNormal6.3-10.7FOhioHealth Arthur G.H. Bing, MD, Cancer CenterComment on above:Performed By: #### CMP, SCAN CBC ####[facility] [place] [address] [place]#### AFPTM ####[facility] ,Platelet morphology finding [Identifier] in BloodOrdered By: Fabiola Marinelli on 08-32-8281Kgualisf morphology finding Nom (Bld)NormalNormalChildren'S Hospital For RehabilitationPlatelets [#/volume] in Blood by Automated countOrdered By: Fabiola Marinelli on 17-35-2907Flyddhyss (Bld) [#/Vol]45 10*3/aKGog325-565XwutghctdChildren'S Hospital For RehabilitationComment on above:Performed By: #### CMP, SCAN CBC ####[place] [address] [place] [address] [place]#### AFPTM ####[facility] ,Poikilocytosis [Presence] in Blood by Light microscopyOrdered By: Fabiola Marinelli on 90-92-1552Iyyxuenvudbpae LM Ql (Bld)Slight [facility] Hospital For RehabilitationPotassium [Moles/volume] in Serum or Plasma Ordered By: Fabiola Marinelli on 92-45-5849Svopuepbe [Moles/Vol]4.5 mmol/LNormal3.5-5.1 [facility] For RehabilitationComment on above:Performed By: #### CMP, SCAN CBC ####[place] [address] [place]#### AFPTM ####[facility] ,Protein [Mass/volume] in Serum or Plasma Ordered By: Fabiola Marinelli on 21-25-7518Mtcenfe [Mass/Vol]5.5 g/dLLow6.4-8.9[facility] Hospital For RehabilitationComment on above:Performed By: #### CMP, SCAN CBC ####[place] [address] [place]#### AFPTM ####[facility] ,SCAN AND CBCon 67-68-1215Mulzknyyzqkh Ql (Bld) SlightNOAR HealthcareBasophils (Bld) [#/Vol]0 10*3/uL0.0 - 0.2 10*3/uLNOMS HealthcareBasophils/100 WBC Manual cnt (Syn fld)0.4 %.NOM HealthcareEosinophils (Bld) [#/Vol]0.5 10*3/uLHigh0.0 - 0.45 10*3/uLNOMS HealthcareEosinophils/100 WBC Manual cnt (Syn fld)29.1 %.[facility] HealthcareErythrocyte distribution width (RBC) [Ratio]14.7 %11.9 - 15.3 %NOMS HealthcareHematocrit (Bld) [Volume fraction]32.2 %Low34.0 - 46.4 %[facility] HealthcareHemoglobin (Bld) [Mass/Vol]10.8 g/dLLow11.8 - 15.4 g/dLFILLMORE COMMUNITY MEDICAL CENTER HealthcareInterpretation and review of laboratory resultsAbnormalFILLMORE COMMUNITY MEDICAL CENTER HealthcareLymphocytes (Bld) [#/Vol]0.3 10*3/uLLow1.00 - 4.8 10*3/uLNOMS HealthcareLymphocytes/100 WBC Manual cnt (Syn fld)21.7 %.[facility] CenterH (RBC) [Entitic mass]33 pg24.7 - 34.3 pgMissouri Baptist Medical CenterHC (RBC) [Mass/Vol]33.5 g/dL32.0 - 35.0 g/dLMissouri Baptist Medical CenterV (RBC) [Entitic vol]98.5 fL 80 - 100 fLFILLMORE COMMUNITY MEDICAL CENTER HealthcareMonocytes (Bld) [#/Vol]0.3 10*3/uL0.0 - 0.8 10*3/uL NOM HealthcareMonocytes+Macrophages/100 WBC Manual cnt (Syn fld)19.4 %.[facility] HealthcareNeutrophils (Bld) [#/Vol]0.5 10*3/uLLow1.8 - 7.7 10*3/uLNOMS HealthcareNeutrophils/100 WBC Manual cnt (Syn fld)29.4 %.NOMS HealthcareNRBC0 /100{WBC}0 - 0.5 /100{WBC}NOMS HealthcarePLATELET ESTIMATEDecreasedNormalNOMS HealthcarePlatelet mean volume (Bld) [Entitic vol]9.3 fL6.3 - 10.7 fLNOMS HealthcarePLATELET MORPHOLOGYNormalNormalNOMS HealthcarePlatelets (Bld) [#/Vol] 45 10*3/yCVsh714 - 450 10*3/uLNOMS HealthcarePOIKILOCYTOSISSlightNOAR Healthcare RBC LM.HPF (Urine sed) [#/Area]3.27 10*6/uLLow3.60 - 5.00 10*6/uLNOMS Healthcare RBC morphology finding Nom (Bld)NormalNormalNOMS HealthcareWBC (Bld) [#/Vol]1.6 10*3/uLLow3.8 - 11.6 10*3/uLNOMS HealthcareWBC LM.HPF (Urine sed) [#/Area]1.6 [CFU]/mLLow3.8 - 11.6 [CFU]/mLNOMS HealthcareNOMS HealthcareScan and CBCon 31-86-2983Ywmf Corpuscular HGB Conc33.5 g/sATypyov01.0-35.0The [facility] Physician GroupComment on above:Performed By: #### CMP, SCAN CBC ####[facility] [place] [address] [place]#### AFPTM ####[facility] ,NRBC%0.0 /100{WBC}Normal0-0.5The [facility] Physician GroupComment on above:Performed By: #### CMP, SCAN CBC ####[facility] [place] [address] [place]#### AFPTM ####[facility] ,Platelet EstimateDecreasedNormalNormalThe [facility] Physician GroupComment on above:Performed By: #### CMP, SCAN CBC ####[place] [address] [place]#### AFPTM ####[facility] ,Platelet MorphologyNormalNormalNormalThe [facility] Comment on above:Result Comment: PERFORMED BY:[address]ARP[address] ROSADOWESTOVER, [place] [phone] MEDICAL DIRECTORARIEL BRUCE M.D.Performed By: #### CMP, SCAN CBC ####[place] [address] [place]#### AFPTM ####[facility] ,PoikilocytosisSlightNoCritical access hospital Physician GroupComment on above:Performed By: #### CMP, SCAN CBC ####[place] [address] [place]#### AFPTM ####[facility] ,White Blood Count1.6 [CFU]/mLLow3.8-11.6The [facility] Physician GroupComment on above:Performed By: #### CMP, SCAN CBC ####[place] [address] [place]#### AFPTM ####[facility] ,Serum globulin measurement by calculation (mass/volume)Ordered By: Fabiola Marinelli on 69-66-6284Ojuopfco (S) [Mass/Vol]2.0 g/dLNoLutheran HospitalComment on above:Performed By: #### CMP, SCAN CBC ####[place] [address] [place]#### AFPTM ####[facility] ,Serum or plasma albumin/globulin mass ratioOrdered By: Fabiola Marinelli on 06-51-5001Cejlqdk/Globulin [Mass ratio]1.8 {ratio}Doctors HospitalComment on above:Performed By: #### CMP, SCAN CBC ####[place] [address] [place]#### AFPTM ####[facility] ,Serum or plasma anion gap determinationOrdered By: Fabiola Marinelli on 84-26-9898Vklma gap [Moles/Vol]7.0 mmol/LNormal6.0-15.0 [facility] For RehabilitationComment on above:Performed By: #### CMP, SCAN CBC ####[facility] [address] [place] [address] [place]#### AFPTM ####[facility] ,Sodium [Moles/volume] in Serum or Plasma Ordered By: Fabiola Marinelli on 81-49-5571Skmftj [Moles/Vol]136 mmol/BTnfbbf067-299 [facility] For RehabilitationComment on above:Performed By: #### CMP, SCAN CBC ####[facility] [address] [place] [address] [place]#### AFPTM ####[facility] ,Urea nitrogen [Mass/volume] in Serum or PlasmaOrdered By: Fabiola Marinelli on 36-46-8290Cqlc nitrogen [Mass/Vol]15 mg/dLNormal 7-[facility] For RehabilitationComment on above:Performed By: #### CMP, SCAN CBC ####[facility] [address] [place] [address] [place]#### AFPTM ####[facility] ,Ambulatory Visit Summaryon 06-12-2025 Ambulatory Visit SummaryAmbulatory Visit Summary MOJGAN PÉREZ :1955 Visit Date:06/12/2025 Ambulatory Visit Instructions Your Diagnosis Gross hematuria History of kidney stones Your Care Team Attending Physician - Marlon VALENZUELA MD Primary Care Physician - EMELY PEDERSEN DO Referring Physician - [place], [place]. GARCIA LUNA [...] MIGUEL ANGEL JASSO, CESAR Cohen When: Where: [facility] [facility] [place] [address] You Need to Complete the Following Urine [...] one day after procedure Pickup at [facility]/pharmacy #[id number] Unchanged acyclovir (acyclovir 400 mg Tab) 1 [...] physician if questions or concerns Pharmacy Information [facility]/pharmacy #[id number]: [address], [place] [id number] [phone] Allergies Avelox (Unknown) Vibramycin (Unknown) Voltaren (Unknown) [...] for your care. E (more content not included)...NormalMarion HospitalUrine Cytology ([facility])on 04-57-1065SZ Method of ExtractionVoidedNormalMarion HospitalComment on above:Performed By: #### [id number] #### [facility] [address] [place], [place] [address]AZ Number of Kphx4Dbqpxjo Interpretation CodeMarion HospitalComment on above:Performed By: #### [id number] #### [facility] [address] [place], [place] [address]IX SpecimenUrineProtestant Deaconess HospitalComment on above:Performed By: #### [id number] #### [facility] [address] [place], [place] [address]FE Type of ServiceTechnical OnlyProtestant Deaconess HospitalComment on above:Performed By: #### [id number] #### [facility] [address] [place], [place] [address]Wvpdnto Office/Clinic Noteon 97-27-9435Xmnhnxd Office/Clinic NoteUrology Office/Clinic Note Chief Complaint new pt here for gross hematuria HPI Staff Pt is a 69 year old female referred by [facility] ER for gross hematuria Pt report that [...] Gross hematuria) MRI Abd w/wo con 04/17/[address] [facility] - No renal mass or hydro. Reports [...] Information MIGUEL ANGEL JASSO, Marlon Rangel, URL [address] [place] [address] [place] [address] Additional Instructions: sched cysto Patient Education Cystoscopy Hematuria, Adult I, Felipa Jules, personally scribed for Dr. Valenzuela on 06/12/2025 10:53:23. . Documentation recorded by the scribe, Felipa uJles, accurately reflects the services(s) I performed and [...] mg-160 mg Tab, See Instructions Vitamin D, [address] Internationa (more content not included)...Protestant Deaconess HospitalComment on above:Result Comment: Electronically Signed By: Marlon VALENZUELA MD\.br\Date and Time Signed: 06/12/25 10:54 EDT\.br\Electronically Co-Signed By: Felipa Jules.adrian\Date and Time Co-Signed: 06/12/25 10:53 EDT Comprehensive Metabolic Panelon 38-12-9118Sjjenyd [Mass/Vol]3.5 g/dLNormal 3.5-5.7The [facility] Physician GroupComment on above:Performed By: #### SCAN CBC, CMP ####[facility] [address] [place] [address] USAAlbumin/Globulin [Mass ratio]1.7 {ratio}NormalTrinity Community Hospital Physician Group Comment on above:Performed By: #### SCAN CBC, CMP ####[facility] [place] [address] USAALP [Catalytic activity/Vol]92 U/L Otitmj12-734Psw [facility] Physician GroupComment on above:Performed By: #### SCAN CBC, CMP ####[address] [address] USAALT [Catalytic activity/Vol]13 U/LNormal7-52The [facility] Hospital GroupComment on above:Performed By: #### SCAN CBC, CMP ####[address] [address] USAAnion gap [Moles/Vol]8.3 mmol/LNormal6.0-15.0The [facility] Physician GroupComment on above:Performed By: #### SCAN CBC, CMP ####[place] [address] USAAST [Catalytic activity/Vol]28 U/MNasrna75-07Jbh [facility] Physician GroupComment on above:Performed By: #### SCAN CBC, CMP ####[place] [address] USABilirubin [Mass/Vol]1.1 mg/dL High0.3-1.0The [facility] Physician GroupComment on above:Performed By: #### SCAN CBC, CMP ####[place] [address] USACalcium [Mass/Vol]9.1 mg/dLNormal8.6-10.3The [facility] Physician GroupComment on above:Performed By: #### SCAN CBC, CMP ####[address] [address] USAChloride [Moles/Vol]102 mmol/LNormal 98-107The [facility] Physician GroupComment on above:Performed By: #### SCAN CBC, CMP ####[address] [address] [place] CO2 [Moles/Vol]31.3 mmol/LHigh21.0-31.0The [facility] Physician GroupComment on above:Performed By: #### SCAN CBC, CMP ####[place] [address] USACreatinine [Mass/Vol]1.14 mg/dLNormal0.60-1.20 The [facility] Physician GroupComment on above:Performed By: #### SCAN CBC, CMP ####[address] [address] [place] Creatinine Clr Calc Vlrfqqde50.06NoCritical access hospital Physician GroupComment on above:Result Comment: PERFORMED BY:[address] TSERINGRobertoErnaROMA, [place] [phone] MEDICAL BARBIE BRUCE M.D.Performed By: #### SCAN CBC, CMP ####[address] [address] USAGFR/1.73 sq M.predicted MDRD (S/P/Bld) [Vol rate/Area]52.763 mL/min/{1.73_m2}NormalThe [facility]alachian Physician GroupComment on above:Performed By: #### SCAN CBC, CMP ####[place] [address] USAGlobulin (S) [Mass/Vol]2.1 g/dLNoCritical access hospital Physician [facility] HospitalComment on above:Performed By: #### SCAN CBC, CMP ####[place] [address] USAGlucose [Mass/Vol]94 mg/wHRrsqpa17-866Tvz [facility] Physician GroupComment on above: Result Comment: Random Glucose Reference Range is dependent on time and content of last meal. Glucose of more than 200 mg/dL in a nonstressed, ambulatory subject supports the diagnosis of Diabetes Mellitus. ADA recommended reference rangePerformed By: #### SCAN CBC, CMP ####[address] [address] USAPotassium [Moles/Vol]4.6 mmol/LNormal3.5-5.1 The [facility] Physician GroupComment on above:Performed By: #### SCAN CBC, CMP ####[place] [address] USAProtein [Mass/Vol]5.6 g/dLLow6.4-8.9The [facility] Physician GroupComment on above: Performed By: #### SCAN CBC, CMP ####[facility] [place] [address] USASodium [Moles/Vol]137 mmol/BMajzlo502-388Hgu [facility] Physician GroupComment on above:Performed By: #### SCAN CBC, CMP ####[facility] [place] [address] USAUrea nitrogen [Mass/Vol]14 mg/dLNormal7-25The [facility] Physician GroupComment on above:Performed By: #### SCAN CBC, CMP ####[facility] [place] [address] USADacrocytes [Presence] in Blood by Light microscopyOrdered By: Fabiola Marinelli on 97-03-6402Bsvftrjpbr LM Ql (Bld)Slight [facility]S Hospital For RehabilitationFree K+L LT Chains, Qn, Son 89-44-2331Yehm [place] Light Chains, S<0.1Ypairy8.3-19.4The [facility] Physician GroupComment on above:Performed By: #### VAHID SERUM, KAPPA, SPE ####[facility] ,Free Lambda Light Chains, S5.8 mg/LNormal5.7-26.3The [facility] Physician GroupComment on above:Performed By: #### VAHID SERUM, KAPPA, SPE ####[facility] , [place]/Lambda Ratio, S<0.20Gmawru5.26-1.65The [facility]achian Physician GroupComment on above:Result Comment: Performed at: - [facility] [id number] Door Glass Installer: Lang Knight PhD, Phone: [phone] BY:[address]ETALONZOWESTOVER, [place] [phone] MEDICAL DIRECTORARIEL BRUCE M.D.Performed By: #### VAHID SERUM, KAPPA, SPE ####[facility] ,INR in Platelet poor plasma by Coagulation assayOrdered By: Garcia Sanchez on 75-96-0153KQO Coag (PPP) [Relative time]1.3 {INR}Doctors HospitalComment on above: Result Comment: INR Therapeutic [...] with mechanical heart valves: 3 - 4.5PERFORMED BY:[facility] [place], [place] [phone] MEDICAL DIRECTORARIEL BRUCE M.D.Performed By: #### PT ####[facility] [place] [address] USAImmunofixation,Serumon 74-67-7386Clfmtojoijxoqr, SerumCommentNormal.The [facility]alachian Physician GroupComment on above:Result Comment: No monoclonality detected.Performed By: #### VAHID SERUM, KAPPA, SPE ####[facility] ,Immunoglobulin A, Serum<2Uwojro07-804Nou [facility] Comment on above:Result Comment: Result confirmed on concentration.Performed By: #### VAHID SERUM, KAPPA, SPE ####[facility] ,Immunoglobulin G728 mg/dL Olpriz127-6871Mzc [facility] Physician GroupComment on above:Performed By: #### VAHID SERUM, KAPPA, SPE ####[facility] ,Immunoglobulin M, Serum12 mg/dL Hnhzqr74-566Edt [facility] Physician GroupComment on above:Result Comment: Result confirmed on concentration. Performed at: - [facility] [id number] Door Glass Installer: Lang Knight PhD, Phone: [phone] Performed By: #### VAHID SERUM, KAPPA, SPE ####[facility] ,Microcytes LM Ql (Bld)Ordered By: Fabiola Marinelli on 57-12-7170Vxmjqujhoe Ql (Bld)[facility]'s HospitalNo Panel InformationOrdered By: Fabiola Marinelli on 06-07-2025 Not observed g/dLNot ObservedChildren'S Hospital For RehabilitationComment.[facility] Hospital For RehabilitationOvalocytes [Presence] in Blood by Light microscopyOrdered By: Fabiola Yves on 12-27-1350Qiydmppnal LM Ql (Bld)[facility] Children's HospitalPlatelets Large [Presence] in Blood by Light microscopyOrdered By: Fabiola Yves on 16-68-2775Xctknydya Large LM Ql (Bld)[facility] Children's HospitalProtein Electrophoresis, Serumon 56-66-4659Gwhzc-1-Globulin0.3 g/dLNormal0.0-0.4The [facility] Physician GroupComment on above:Performed By: #### VAHID SERUM, KAPPA, SPE ####[facility] ,Qefpg-4-Kjnuuvcw9.6 g/dL Normal0.4-1.0The [facility]achian Physician GroupComment on above:Performed By: #### VAHID SERUM, KAPPA, SPE ####[facility] ,Beta Globulin0.8 g/dLNormal 0.7-1.3The [facility]achian Physician GroupComment on above:Performed By: #### VAHID SERUM, KAPPA, SPE ####[facility] ,Gamma Globulin0.6 g/dLNormal0.4-1.8 The [facility]ian Physician GroupComment on above:Performed By: #### VAHID SERUM, KAPPA, SPE ####[facility] ,M-SpikeNot ObservedNormalNot ObservedThe [facility] Appalachian Physician GroupComment on above:Performed By: #### VAHID SERUM, KAPPA, SPE ####[facility] ,SPE-NoteCommentNormal.The [facility]achian Physician GroupComment on above:Result Comment: Protein electrophoresis scan will follow via computer, mail, or emulsion operator delivery. Performed at: [facility] [id number] Door Glass Installer: Lang Knight PhD, Phone: [phone] By: #### VAHID SERUM, KAPPA, SPE ####[facility] , Prothrombin time (PT)Ordered By: Garcia Sanchez on 16-55-1168IX Coag (PPP) [Time] 14.7 sHigh9.0-12.9Children'S Hospital For RehabilitationComment on above:Result Comment: A hematocrit value greater than 55% may lead to inaccurate results in coagulation testing. Patients having hematocrit values >55% require a special collection tube for coagulation studies. Please contact the laboratory at [phone] for redraw instructions.Performed By: #### PT ####[address] [address] USAScan and CBCon 84-25-0929Rnxnrozhdsza Ql (Bld)SlightNormalThe Un[facility] Appalachian Physician GroupComment on above:Performed By: #### SCAN CBC, CMP ####[address] [address] USABasophils (Bld) [#/Vol]0.0 10*3/uLNormal 0.0-0.2The [facility]ician [facility] HospitalComment on above:Performed By: #### SCAN CBC, CMP ####[address] [address] USABasophils/100 WBC (Bld)0.4 %Normal.The [facility]achian Physician GroupComment on above:Performed By: #### SCAN CBC, CMP ####[address] [address] USAEosinophils (Bld) [#/Vol]0.6 10*3/uLHigh 0.0-0.45The Warren General HospitalComment on above:Performed By: #### SCAN CBC, CMP ####[address] [address] USAEosinophils/100 WBC (Bld)29.7 %Normal.The [facility] Physician GroupComment on above:Performed By: #### SCAN CBC, CMP ####[address] [address] USAErythrocyte distribution width (RBC) [Ratio] 14.6 %Ryynaw65.9-15.3The [facility]achian Physician GroupComment on above:Performed By: #### SCAN CBC, CMP ####[address] [address] USAHematocrit (Bld) [Volume fraction]32.4 %Low34.0-46.4The [facility] Physician GroupComment on above:Performed By: #### SCAN CBC, CMP ####[place] [address] USAHemoglobin (Bld) [Mass/Vol]11.0 g/dLLow11.8-15.4The [facility] Physician GroupComment on above: Performed By: #### SCAN CBC, CMP ####[place] [address] USALarge PlateletsSlightNormalThe [facility] Appalachian Physician GroupComment on above:Result Comment: PERFORMED BY:[address] [place], [place] [phone] MEDICAL DIRECTORARIEL BRUCE M.D.Performed By: #### SCAN CBC, CMP ####[address] [address] USALymphocytes (Bld) [#/Vol]0.4 10*3/uLLow1.00-4.8The [facility] Physician GroupComment on above: Performed By: #### SCAN CBC, CMP ####[place] [address] USALymphocytes/100 WBC (Bld)22.0 %Normal.The [facility]ach[facility] Physician GroupComment on above:Performed By: #### SCAN CBC, CMP ####[address] [address] USAMCH (RBC) [Entitic mass]33.1 xyOsnsuv36.7-34.3The [facility] Physician GroupComment on above: Performed By: #### SCAN CBC, CMP ####[address] [address] USAMCV (RBC) [Entitic vol]97.5 aOFfydbk86-311Fkz [facility] Physician GroupComment on above:Performed By: #### SCAN CBC, CMP ####[address] [address] USAMean Corpuscular HGB Conc33.9 g/iMJybqzy16.0-35.0The [facility] Physician GroupComment on above:Performed By: #### SCAN CBC, CMP ####[address] [address] USAMicrocytosisSlightNoCritical access hospital Physician GroupComment on above:Performed By: #### SCAN CBC, CMP ####[address] [address] USAMonocytes (Bld) [#/Vol]0.4 10*3/uLNormal0.0-0.8The [facility]ach[facility] Physician GroupComment on above: Performed By: #### SCAN CBC, CMP ####[place] [address] USAMonocytes/100 WBC (Bld)19.9 %Normal.The [facility] Physician GroupComment on above:Performed By: #### SCAN CBC, CMP ####[place] [address] USANeutrophils (Bld) [#/Vol]0.6 10*3/uLLow1.8-7.7The [facility] Physician GroupComment on above: Performed By: #### SCAN CBC, CMP ####[place] [address] USANeutrophils/100 WBC (Bld)28.0 %Normal.The [facility] Physician GroupComment on above:Performed By: #### SCAN CBC, CMP ####[place] [address] USANRBC%0.2 /100{WBC} Normal0-0.5The [facility] Physician GroupComment on above:Performed By: #### SCAN CBC, CMP ####[place] [address] USAOvalocytesSlightNoCritical access hospital Physician GroupComment on above:Performed By: #### SCAN CBC, CMP ####[address] [address] USAPlatelet EstimateDecreasedNormTallahassee Memorial HealthCare Physician GroupComment on above:Performed By: #### SCAN CBC, CMP ####[address] [address] USAPlatelet mean volume (Bld) [Entitic vol]8.9 fLNormal6.3-10.7The [facility] Physician GroupComment on above:Performed By: #### SCAN CBC, CMP ####[address] [address] USAPlatelets (Bld) [#/Vol]48 10*3/bZQfj885-625Tkt [facility] Physician GroupComment on above:Performed By: #### SCAN CBC, CMP ####[address] [address] USA PoikilocytosisSAtrium Health Union West Physician GroupComment on above: Performed By: #### SCAN CBC, CMP ####[address] [address] USARBC (Bld) [#/Vol]3.32 10*6/uLLow3.60-5.00The [facility] Physician GroupComment on above:Performed By: #### SCAN CBC, CMP ####[address] [address] USATear Drop CellsSAtrium Health Union West Physician GroupComment on above:Performed By: #### SCAN CBC, CMP ####[address] [address] USAWBC (Bld) [#/Vol]2.0 10*3/uLLow3.8-11.6The [facility] Physician GroupComment on above:Performed By: #### SCAN CBC, CMP ####[address] [address] USAWhite Blood Count2.0 [CFU]/mLLow3.8-11.6The [facility] Physician GroupComment on above:Performed By: #### SCAN CBC, CMP ####[facility] [address] [place] [address] USASerum free kappa light chain measurementOrdered By: Fabiola Marinelli on 98-07-1291Xjjrmibakrfmlx light chains.kappa.free (S) [Mass/Vol]<0.7 mg/LLow 3.3-19.4FKettering Health Daytonerum globulin measurement (mass/volume)Ordered By: Fabiola Marinelli on 69-01-4780Yxxqkwtj (S) [Mass/Vol]2.4 g/dL Normal2.2-3.9Children'S Hospital For RehabilitationComment on above:Performed By: #### VAHID SERUM, KAPPA, SPE ####[facility] ,Serum immunoglobulin free kappa light chains/immunoglobulin free lambda light chainsOrdered By: Fabiola Marinelli on 34-81-3691Iskjyyxwmybzwj light chains.kappa.free/Immunoglobulin light chains.lambda.free (S) [Mass ratio]<0.12Low0.26-1.65Summa Healtherum or plasma IgA measurement (mass/volume)Ordered By: Fabiola Marinelli on 18-37-1807WgO [Mass/Vol]mg/qZMcb51-206HdtzdcofsSumma Healtherum or plasma IgG measurement (mass/volume)Ordered By: Fabiola Marinelli on 96-04-9650JbV [Mass/Vol]728 mg/cD583-4153BimsbprucSumma Healtherum or plasma IgM measurement (mass/volume)Ordered By: Fabiola Marinelli on 30-03-2422NiQ [Mass/Vol]12 mg/rSEuk34-117RnrcrqwuySumma Healtherum or plasma albumin measurement (mass/volume)Ordered By: Fabiola Marinelli on 98-64-7792Mqdledz [Mass/Vol] 3.0 g/dLNormal2.9-4.4FOhioHealth Arthur G.H. Bing, MD, Cancer CenterComment on above:Performed By: #### VAHID SERUM, KAPPA, SPE ####[facility] ,Serum or plasma albumin/globulin mass ratioOrdered By: Fabiola Marinelli on 16-06-5127Aqhgbef/Globulin [Mass ratio]1.3 {ratio}Normal0.7-1.7FOhioHealth Arthur G.H. Bing, MD, Cancer CenterComment on above:Performed By: #### VAHID SERUM, KAPPA, SPE ####[facility] ,Serum or plasma alpha 1 globulin measurement by electrophoresis (mass/volume)Ordered By: Fabiola Marinelli on 94-67-0558Pmddo 1 globulin Elph [Mass/Vol]0.3 g/dL0.0-0.4 Summa Healtherum or plasma alpha 2 globulin measurement by electrophoresis (mass/volume)Ordered By: Fabiola Marinelli on 19-30-9385Uvfkh 2 globulin Elph [Mass/Vol]0.6 g/dL0.4-1.0Summa Healtherum or plasma beta globulin measurement by electrophoresis (mass/volume)Ordered By: Fabiola Marinelli on 42-24-6250Itfo globulin Elph [Mass/Vol]0.8 g/dL0.7-1.3FKettering Health Daytonerum or plasma gamma globulin measurement by electrophoresis (mass/volume)Ordered By: Fabiola Marinelli on 94-96-8579Dnxxu globulin Elph [Mass/Vol]0.6 g/dL0.4-1.8Summa Healtherum or plasma immunoglobulin free lambda light chains measurement (mass/volume)Ordered By: Fabiola Marinelli on 40-81-1412Jlnnmifhoiufmd light chains.lambda.free [Mass/Vol]5.8 mg/L 5.7-26.3FKettering Health Daytonerum total protein measurementOrdered By: Fabiola Marinelli on 20-94-7106Aauigvg [Mass/Vol]5.4 g/dLNormal6.0-8.5FOhioHealth Arthur G.H. Bing, MD, Cancer CenterComment on above:Performed By: #### VAHID SERUM, KAPPA, SPE ####[facility] ,Bacteria [Presence] in Urine by AutomatedOrdered By: Garcia Sanchez on 73-88-5355Qgotaiob Auto Ql (U)1+ [HPF]HighFlorence Community Healthcaree Regency Hospital Cleveland EastBasophils [#/volume] in Blood by Automated countOrdered By: Fabiola Marinelli on 29-56-6640Evigzemjf (Bld) [#/Vol]0.0 10*3/uLNormal0.0-0.2 [facility] For RehabilitationComment on above:Performed By: #### SCAN CBC ####[address] [address] [place] Basophils/100 leukocytes in Blood by Automated countOrdered By: Fabiola Marinelli on 11-16-3059Iklrmcdlb/100 WBC (Bld)0.3 %Normal.[facility] Comment on above:Performed By: #### SCAN CBC ####[address] [address] USABilirubin Test strip Ql (U)Ordered By: Garcia Sanchez on 52-74-6547Ujldthkls Ql (U)See commentNegativeChildren'S Hospital For RehabilitationDipstick and Microscopicon 49-55-0562Yzkgyqzd,Urine1+ [HPF]Normal None SeenThe [facility] Health Appalachian Physician GroupComment on above:Order Comment: Name Collection Type:: Clean-Voided MidstreamPerformed By: #### CUU, ADDONUAPLUS ####[address] [place] Bilirubin,UrineNormalNegativeThe [facility] Appalachian Physician GroupComment on above:Order Comment: Name Collection Type:: Clean-Voided MidstreamResult Comment: Unable to obtain accurate result due to color interference.Performed By: #### CUU, ADDONUAPLUS ####[address] USAGlucose Ql (U)NormalNormalThe [facility]alachian Physician GroupComment on above: Order Comment: Name Collection Type:: Clean-Voided MidstreamResult Comment: Unable to obtain accurate result due to color interference.Performed By: #### CUU, ADDONUAPLUS ####[address] [address] USAHyaline Casts,UrineNoneNormal0-8The [facility]ian Physician GroupComment on above:Order Comment: Name Collection Type:: Clean-Voided MidstreamResult Comment: PERFORMED BY:[place] [address] [address] [place], [place] [phone] MEDICAL BARBIE BRUCE M.D.Performed By: #### CUU, ADDONUAPLUS ####[address], [place] USAKetones Ql (U)NormalNegativeTrinity Community Hospital Physician GroupComment on above:Order Comment: Name Collection Type:: Clean-Voided MidstreamResult Comment: Unable to obtain accurate result due to color interference.Performed By: #### CUU, ADDONUAPLUS ####[address] USALeukocyte esterase Test strip Ql (U) NormalNegativeTrinity Community Hospital Physician GroupComment on above:Order Comment: Name Collection Type:: Clean-Voided MidstreamResult Comment: Unable to obtain accurate result due to color interference.Performed By: #### CUU, ADDONUAPLUS ####[address] [place] Nitrite,UrineNormalNegativeTrinity Community Hospital Physician GroupComment on above:Order Comment: Name Collection Type:: Clean-Voided MidstreamResult Comment: Unable to obtain accurate result due to color interference.Performed By: #### CUU, ADDONUAPLUS ####[address], [place] USAOccult Blood,UrineNormalNegativeTrinity Community Hospital Physician GroupComment on above:Order Comment: Name Collection Type:: Clean-Voided MidstreamResult Comment: Unable to obtain accurate result due to color interference.Performed By: #### CUU, ADDONUAPLUS ####[address], [place] USApH,UrineNormal5.0-9.0The [facility] Comment on above:Order Comment: Name Collection Type:: Clean-Voided Midstream Result Comment: Unable to obtain accurate result due to color interference. Performed By: #### CUU, ADDONUAPLUS ####[address], [place] USAProtein,UrineNormalNegativeTrinity Community Hospital Physician GroupComment on above:Order Comment: Name Collection Type:: Clean-Voided MidstreamResult Comment: Unable to obtain accurate result due to color interference.Performed By: #### CUU, ADDONUAPLUS ####[address], [id number] USARBC,UrineInnumerableNormal0-4The [facility] Physician GroupComment on above:Order Comment: Name Collection Type:: Clean-Voided MidstreamPerformed By: #### CUU, ADDONUAPLUS ####[address], [place] USASpecificy [place],Urine1.010 Normal1.001-1.030The [facility]alachian Physician GroupComment on above:Order Comment: Name Collection Type:: Clean-Voided MidstreamResult Comment: Rechecked by refractometerPerformed By: #### CUU, ADDONUAPLUS ####[address], [id number] USASquamous Epithelial Cell,Urine5-9Normal 0-2The [facility]alachian Physician GroupComment on above:Order Comment: Name Collection Type:: Clean-Voided MidstreamPerformed By: #### CUU, ADDONUAPLUS ####[address], [place] USAUrobilinogen,Urine NormalNormalThe [facility]alachian Physician GroupComment on above:Order Comment: Name Collection Type:: Clean-Voided MidstreamResult Comment: Unable to obtain accurate result due to color interference.Performed By: #### CUU, ADDONUAPLUS ####[address], [place] [place] WBC,UrineInnumerableNormal0-4The [facility]al[facility]ian Physician GroupComment on above:Order Comment: Name Collection Type:: Clean-Voided MidstreamPerformed By: #### CUU, ADDONUAPLUS ####[address], [place] USAEosinophils [#/volume] in Blood by Automated countOrdered By: Fabiola Marinelli on 54-61-0623Jswlgudwsgc (Bld) [#/Vol]0.7 10*3/uLHigh0.0-0.45[facility] For RehabilitationComment on above:Performed By: #### SCAN CBC ####[address] [address] USAEosinophils/100 leukocytes in Blood by Automated countOrdered By: Fabiola Marinelli on 05-30-2025 Eosinophils/100 WBC (Bld)29.1 %Normal.[facility] For RehabilitationComment on above:Performed By: #### SCAN CBC ####[place] [address] USAEpithelial cells.squamous [#/area] in Urine sediment by Automated countOrdered By: Garcia Sanchez on 62-97-8852Dqakhqamxb cells.squamous Auto (Urine sed) [#/Area]5-9 [HPF]High0-2FOhioHealth Arthur G.H. Bing, MD, Cancer CenterErythrocyte distribution width [Ratio] by Automated countOrdered By: Fabiola Marinelli on 14-96-5153Ajuddtitier distribution width (RBC) [Ratio]14.8 % Pzwjho79.9-15.3FOhioHealth Arthur G.H. Bing, MD, Cancer CenterComment on above:Performed By: #### SCAN CBC ####[place] [id number] USAErythrocyte morphology finding [Identifier] in BloodOrdered By: Fabiola Marinelli on 40-05-1345MFW morphology finding Nom (Bld)NormalNormalNormalChildren'S Hospital For RehabilitationComment on above:Performed By: #### SCAN CBC ####[place] [address] [place] Erythrocytes [#/area] in Urine sediment by Automated countOrdered By: Garcia Sanchez on 65-17-4155FLV Auto (Urine sed) [#/Area]Innumerable [HPF]High0-4FOhioHealth Arthur G.H. Bing, MD, Cancer CenterErythrocytes [#/volume] in Blood by Automated count Ordered By: Fabiola Marinelli on 88-18-1406FHB (Bld) [#/Vol]3.34 10*6/uLLow3.60-5.00 [facility] For RehabilitationComment on above:Performed By: #### SCAN CBC ####[place] [address] USAGlucose [Mass/volume] in Urine by Test stripOrdered By: Garcia Sanchez on 05-30-2025 Glucose Test strip (U) [Mass/Vol]See commentNormalChildren'S Hospital For RehabilitationHematocrit [Volume Fraction] of Blood by Automated countOrdered By: Fabiola Marinelli on 62-15-4394Fehexnlfkm (Bld) [Volume fraction]33.0 %Low34.0-46.4FOhioHealth Arthur G.H. Bing, MD, Cancer CenterComment on above:Performed By: #### SCAN CBC ####[facility] [address] [place] [id number] [facility] CENTERB Hemoglobin Test strip Ql (U)Ordered By: Garcia Sanchez on 28-13-1043Ekbsbpwunw Ql (U)See commentNegativeChildren'S Hospital For RehabilitationHemoglobin [Mass/volume] in BloodOrdered By: Fabiola Marinelli on 27-18-9709Batyynqtlq (Bld) [Mass/Vol]11.0 g/dL Low11.8-15.4FOhioHealth Arthur G.H. Bing, MD, Cancer CenterComment on above:Performed By: #### SCAN CBC ####[facility] [address] [place] [id number] USAHyaline casts [#/area] in Urine sediment by Automated countOrdered By: Garcia Sanchez on 89-72-3913Hwrkmwk casts Auto (Urine sed) [#/Area]None [LPF]0-8 [facility] For RehabilitationKetones Test strip (U) [Mass/Vol]Ordered By: Garcia Sanchez on 25-39-2677Eoseqde (U) [Mass/Vol]See commentNegativeChildren'S Hospital For RehabilitationLeukocyte esterase [Presence] in Urine by Test strip Ordered By: Garcia Sanchez on 81-22-1875Nehzcbrid esterase Test strip Ql (U)See commentNegativeChildren'S Hospital For RehabilitationLeukocytes [#/area] in Urine sediment by Automated countOrdered By: Garcia Sanchez on 06-34-1145JGY Auto (Urine sed) [#/Area]Innumerable [HPF]High0-4FOhioHealth Arthur G.H. Bing, MD, Cancer Center Leukocytes [#/volume] corrected for nucleated erythrocytes in Blood by Automated counOrdered By: Fabiola Marinelli on 97-44-9899DDS corrected for nucl RBC Auto (Bld) [#/Vol]2.4 10*3/uLLow3.8-11.6FOhioHealth Arthur G.H. Bing, MD, Cancer CenterLeukocytes [#/volume] in Blood by Automated countOrdered By: Fabiola Marinelli on 51-53-4507POW (Bld) [#/Vol]2.4 10*3/uLLow3.8-11.6FOhioHealth Arthur G.H. Bing, MD, Cancer CenterComment on above:Performed By: #### SCAN CBC ####[address] [address] USALymphocytes [#/volume] in Blood by Automated count Ordered By: Fabiola Marinelli on 41-76-9533Wjlzrtveuvw (Bld) [#/Vol]0.5 10*3/uLLow 1.00-4.8[facility] For RehabilitationComment on above:Performed By: #### SCAN CBC ####[address] [address] USALymphocytes/100 leukocytes in Blood by Automated countOrdered By: Fabiola Marinelli on 10-29-2909Xcpeeknobdc/100 WBC (Bld)22.3 %Normal.[facility] Hospital For RehabilitationComment on above:Performed By: #### SCAN CBC ####[address] [address] [facility] [Entitic mass] by Automated countOrdered By: Fabiola Marinelli on 82-64-3238NTX (RBC) [Entitic mass]33.0 bpHhlzsk82.7-34.3FOhioHealth Arthur G.H. Bing, MD, Cancer CenterComment on above:Performed By: #### SCAN CBC ####[address] [address] [facility] Auto (RBC) [Mass/Vol]Ordered By: Fabiola Marinelli on 60-70-4903DVDO (RBC) [Mass/Vol]33.4 g/dL32.0-35.0[facility] Hospital For RehabilitationMCV [Entitic volume] by Automated countOrdered By: Fabiola Marinelli on 68-13-5930OHS (RBC) [Entitic vol]98.7 oLVhjmaq53-358EraerxemyChildren'S Hospital For RehabilitationComment on above: Performed By: #### SCAN CBC ####[address] [address] USAMonocytes [#/volume] in Blood by Automated count Ordered By: Fabiola Marinelli on 61-80-1232Oiirauagm (Bld) [#/Vol]0.5 10*3/uLNormal 0.0-0.8[facility] For RehabilitationComment on above:Performed By: #### SCAN CBC ####[address] [address] [place] Monocytes/100 leukocytes in Blood by Automated countOrdered By: Fabiola Marinelli on 03-91-0886Qedgvylje/100 WBC (Bld)19.8 %Normal.[facility] Comment on above:Performed By: #### SCAN CBC ####[address] [address] USANeutrophils [#/volume] in Blood by Automated countOrdered By: Fabiola Marinelli on 86-68-2971Utrjvjhkelq (Bld) [#/Vol]0.7 10*3/uLLow1.8-7.7FOhioHealth Arthur G.H. Bing, MD, Cancer CenterComment on above:Performed By: #### SCAN CBC ####[address] [address] USANeutrophils/100 leukocytes in Blood by Automated countOrdered By: Fabiola Marinelli on 37-51-9034Jriywizpxec/100 WBC (Bld)28.5 %Normal.[facility] Hospital For RehabilitationComment on above:Performed By: #### SCAN CBC ####[address] [address] USANitrite Test strip Ql (U)Ordered By: Garcia Sanchez on 57-22-2615Bbbvmts Ql (U)See commentNegative [facility] Hospital For RehabilitationNucleated erythrocytes [Presence] in Blood by Automated countOrdered By: Fabiola Marinelli on 31-37-8670Mjypbfgaj RBC Auto Ql (Bld)0.4 /100{WBC}0-0.5FOhioHealth Arthur G.H. Bing, MD, Cancer CenterPlatelet adequacy [Presence] in Blood by Light microscopyOrdered By: Fabiola Marinelli on 61-18-9684Rbgujinbf LM Ql (Bld)DecreasedLowDoctors HospitalPlatelet mean volume [Entitic volume] in Blood by Automated countOrdered By: Fabiola Marinelli on 05-30-2025 Platelet mean volume (Bld) [Entitic vol]9.3 fLNormal6.3-10.7FOhioHealth Arthur G.H. Bing, MD, Cancer CenterComment on above:Performed By: #### SCAN CBC ####[place] [id number] USAPlatelet morphology finding [Identifier] in BloodOrdered By: Fabiola Yves on 99-53-0725Bpwglysy morphology finding Nom (Bld)NormalNoLutheran Hospital Platelets [#/volume] in Blood by Automated countOrdered By: Fabiola Yves on 55-89-6929Jukmzqkeh (Bld) [#/Vol]53 10*3/nAIqg419-963GmcwzilwnChildren'S Hospital For RehabilitationComment on above:Performed By: #### SCAN CBC ####[place] [address] USAProtein Test strip (U) [Mass/Vol]Ordered By: Garcia Sanchez on 27-19-2001Nyjacpo (U) [Mass/Vol]See commentNegativeSumma Healthcan and CBCon 07-76-9197Cjjp Corpuscular HGB Conc33.4 g/iHNrifoc21.0-35.0The [facility]ian Physician GroupComment on above:Performed By: #### SCAN CBC ####[address] [address] USANRBC%0.4 /100{WBC}Normal0-0.5The [facility]achian Physician GroupComment on above:Performed By: #### SCAN CBC ####[address] [address] USAPlatelet Estimate DecreasedNormalNormShorePoint Health Punta Gorda Physician GroupComment on above:Performed By: #### SCAN CBC ####[place] [address] USAPlatelet MorphologyNormalNormalNormShorePoint Health Punta Gorda Physician Group Comment on above:Result Comment: PERFORMED BY:[facility] [place] [address] [place], [place] [phone] MEDICAL DIRECTORARIEL BRUCE M.D.Performed By: #### SCAN CBC ####[address] [address] USAWhite Blood Count2.4 [CFU]/mL Low3.8-11.6The Un[facility] Health Appalachian Physician GroupComment on above:Performed By: #### SCAN CBC ####[address] [address] [facility] Specific gravity of Urine by RefractometryOrdered By: Garcia Sanchez on 05-30-2025 Specific gravity Refractometry (U) [Rel density]1.0101.001-1.030[facility] For RehabilitationUrine Cultureon 22-79-4659Xwkbqfbm identified Cx Nom (U) NormalThe [facility] Physician [facility] General HospitalComment on above:Performed By: #### CUU, ADDONUAPLUS ####[address] USAUrine appearance determinationOrdered By: Garcia Sanchez on 05-30-2025 Appearance (U)TurbidCritically abnormalCleMercy Health St. [facility] Comment on above:Order Comment: Name Collection Type:: Clean-Voided Midstream Performed By: #### CUU, ADDONUAPLUS ####[address] USAUrine color determinationOrdered By: Garcia Sanchez on 26-81-6465Ypenv (U)RedCritically abnormalYelCincinnati Children's Hospital Medical Center Comment on above:Order Comment: Name Collection Type:: Clean-Voided Midstream Performed By: #### CUU, ADDONUAPLUS ####[address] USAUrine cultureOrdered By: Garcia Sanchez on 05-30-2025 Bacteria identified Cx Nom (U)Klebsiella pneumoniae (ESBL)AbnormalChildren'S Hospital For RehabilitationUrobilinogen Test strip (U) [Mass/Vol]Ordered By: Garcia Sanchez on 72-08-9371Swcmahzrfmwq (U) [Mass/Vol]See commentNoalChildren'S Hospital For RehabilitationpH Test strip (U)Ordered By: Garcia Sanchez on 12-82-2221zV (U)See comment5.0-9.0[facility] For RehabilitationUS venous duplex LE RTon 86-06-5044ZE venous duplex LE RTNoCritical access hospital Physician PhnqfE4F with Estimated Average Gluon 47-00-5538Vfcgelk [Mass/Vol]117 mg/dLNoCritical access hospital Physician GroupComment on above:Result Comment: PERFORMED BY:[facility] [place] [address] [place], [place] [phone] MEDICAL DIRECTORARIEL BRUCE M.D.Performed By: #### A1C WT eA, PT ####[address] [place] [address] USAAlanine aminotransferase [Enzymatic activity/volume] in Serum or PlasmaOrdered By: Fabiola Marinelli on 15-08-4282HIK [Catalytic activity/Vol]12 U/LNormal7-52Children[facility] Hospital For RehabilitationComment on above:Performed By: #### SCAN CBC, CMP ####[address] [place] [address] USAAlbumin [Mass/volume] in Serum or Plasma by Bromocresol green (BCG) dye binding metho Ordered By: Fabiola Marinelli on 28-97-6194Cixnuwo BCG dye [Mass/Vol]3.3 g/dLLow3.5-5.7 [facility] Hospital For RehabilitationAlkaline phosphatase [Enzymatic activity/volume] in Serum or PlasmaOrdered By: Fabiola Marinelli on 77-37-2015FPL [Catalytic activity/Vol]103 U/QBvynna15-892LwlpjcwbfChildren'S Hospital For Rehabilitation Comment on above:Performed By: #### SCAN CBC, CMP ####[address] [place] [address] USAAnisocytosis [Presence] in Blood by Light microscopyOrdered By: Fabiola Marinelli on 83-28-3483Bymgsyirkkfl Ql (Bld)Slight NormalChildren'S Hospital For RehabilitationComment on above:Performed By: #### SCAN CBC, CMP ####[address] USAAspartate aminotransferase [Enzymatic activity/volume] in Serum or Plasma Ordered By: Fabiola Marinelli on 86-63-9971MES [Catalytic activity/Vol]26 U/TYeghdm64-44 [facility] Hospital For RehabilitationComment on above:Performed By: #### SCAN CBC, CMP ####[place] [address] [place] Basophils [#/volume] in Blood by Automated countOrdered By: Fabiola Marinelli on 45-12-8770Yywqykaix (Bld) [#/Vol]0.0 10*3/uLNormal0.0-0.2FOhioHealth Arthur G.H. Bing, MD, Cancer CenterComment on above:Performed By: #### SCAN CBC, CMP ####[place] [address] USABasophils/100 leukocytes in Blood by Automated countOrdered By: Fabiola Marinelli on 05-17-2025 Basophils/100 WBC (Bld)0.4 %Normal.Children[facility] Hospital For RehabilitationComment on above:Performed By: #### SCAN CBC, CMP ####[place] [address] USABilirubin.total [Mass/volume] in Serum or PlasmaOrdered By: Fabiola Marinelli on 47-66-7850Tlfrlexxo [Mass/Vol]0.8 mg/dLNormal 0.3-1.0[facility] Hospital For RehabilitationComment on above:Performed By: #### SCAN CBC, CMP ####[place] [address] USABlood estimated average glucose determination by estimation from glycated hemoglobinOrdered By: Emely Pedersen on 54-87-0604Inekphd glucose Estimated from glycated hemoglobin (Bld) [Mass/Vol]117 mg/dLChildren'S Hospital For Rehabilitation Calcium [Mass/volume] in Serum or PlasmaOrdered By: Fabiola Marinelli on 05-17-2025 Calcium [Mass/Vol]8.5 mg/dLLow8.6-10.3FOhioHealth Arthur G.H. Bing, MD, Cancer CenterComment on above:Performed By: #### SCAN CBC, CMP ####[address] [address] USACarbon dioxide, total [Moles/volume] in Serum or PlasmaOrdered By: Fabiola Yves on 21-44-6840GV5 [Moles/Vol]26.5 mmol/LNormal 21.0-31.0[facility] For RehabilitationComment on above:Performed By: #### SCAN CBC, CMP ####[address] [address] USAChloride [Moles/volume] in Serum or PlasmaOrdered By: Fabiola Yves on 90-05-8554Ubjttxge [Moles/Vol]106 mmol/XVaounq80-888VfossswrbChildren'S Hospital For RehabilitationComment on above:Performed By: #### SCAN CBC, CMP ####[address] [address] USAComprehensive Metabolic Panel on 84-43-7624Gcbcoag [Mass/Vol]3.3 g/dLLow3.5-5.7The [facility] Comment on above:Performed By: #### SCAN CBC, CMP ####[address] [address] USACreatinine Clr Calc Blfuhswc44.77 NormalThe Unc Health Appalachian Physician GroupComment on above:Result Comment: PERFORMED BY:[address] [place], [place] [phone] MEDICAL BARBIE BRUCE M.D.Performed By: #### SCAN CBC, CMP ####[address] [address] USAGFR/1.73 sq M.predicted MDRD (S/P/Bld) [Vol rate/Area]mL/min/{1.73_m2}Normal The [facility]alachian Physician GroupComment on above:Performed By: #### SCAN CBC, CMP ####[address] [address] [place] Comprehensive metabolic panelon 00-25-5271Yijeofg [Mass/Vol]3.3 g/dLLow3.5 - 5.7 g/dLNOMS HealthcareAlbumin/Globulin [Mass ratio]1.7 {ratio}NOMS HealthcareALP [Catalytic activity/Vol]103 U/L34 - 104 U/LNOMS HealthcareALT [Catalytic activity/Vol]12 U/L7 - 52 U/LNOMS HealthcareAnion gap [Moles/Vol]8.8 mmol/L6.0 - 15.0NOMS HealthcareAST [Catalytic activity/Vol]26 U/L13 - 39 U/LNOMS Healthcare Bilirubin [Mass/Vol]0.8 mg/dL0.3 - 1.0 mg/dLNOMS HealthcareCalcium [Mass/Vol]8.5 mg/dLLow8.6 - 10.3 mg/dLNOMS HealthcareChloride [Moles/Vol]106 mmol/L98 - 107 mmol/LNOMS HealthcareCO2 [Moles/Vol]26.5 mmol/L21.0 - 31.0 mmol/LNOMS Healthcare Creatinine (U) [Mass/Vol]0.96 mg/dL0.60 - 1.20 mg/dLNOMS HealthcareCREATININE CLR CALC WILSPNYJ51.77NOMS HealthcareESTIMATED GFRNOMS HealthcareGlobulin (S) [Mass/Vol]2 g/dLNOMS HealthcareGlucose [Mass/Vol]146 mg/nKBthc66 - 100 mg/dLNOAR HealthcareComment on above:Random Glucose Reference Range is dependent on time and content of last meal. Glucose of more than 200 mg/dL in a nonstressed, ambulatory subject supports the diagnosis of Diabetes Mellitus. ADA recommended reference range Interpretation and review of laboratory resultsAbnormalNOMS HealthcarePotassium [Moles/Vol]4.3 mmol/L3.5 - 5.1 mmol/LNOMS HealthcareProtein [Mass/Vol]5.3 g/dL Low6.4 - 8.9 g/dLNOAR HealthcareSodium [Moles/Vol]137 mmol/L136 - 145 mmol/LNOMS HealthcareUrea nitrogen [Mass/Vol]23 mg/dL7 - 25 mg/dLNOAR HealthcareNOAR HealthcareCreatinine [Mass/volume] in Serum or PlasmaOrdered By: Fabiola Marinelli on 07-10-3047Wheybhpagz [Mass/Vol]0.96 mg/dLNormal0.60-1.20[facility] For RehabilitationComment on above:Performed By: #### SCAN CBC, CMP ####[address] [address] USAECG 12 lead ECGon 19-23-0949LTT 12 lead ECGNormShorePoint Health Punta Gorda Physician GroupEosinophils [#/volume] in Blood by Automated countOrdered By: Fabiola Marinelli on 05-17-2025 Eosinophils (Bld) [#/Vol]0.7 10*3/uLHigh0.0-0.45Children[facility] Hospital For RehabilitationComment on above:Performed By: #### SCAN CBC, CMP ####[address] USAEosinophils/100 leukocytes in Blood by Automated countOrdered By: Fabiola Marnielli on 13-44-6880Ctjfhoymail/100 WBC (Bld)30.7 %Normal.[facility] Hospital For RehabilitationComment on above:Performed By: #### SCAN CBC, CMP ####[address] USAErythrocyte distribution width [Ratio] by Automated countOrdered By: Fabiola Marinelli on 96-47-9892Ncbtfdehezp distribution width (RBC) [Ratio]14.8 %Lnsytc49.9-15.3FOhioHealth Arthur G.H. Bing, MD, Cancer CenterComment on above: Performed By: #### SCAN CBC, CMP ####[address] USAErythrocyte morphology finding [Identifier] in Blood Ordered By: Fabiola Marinelli on 84-72-4771APF morphology finding Nom (Bld)N/AFOhioHealth Arthur G.H. Bing, MD, Cancer CenterErythrocytes [#/volume] in Blood by Automated count Ordered By: Fabiola Marinelli on 74-61-6905LJI (Bld) [#/Vol]3.12 10*6/uLLow3.60-5.00 [facility] For RehabilitationComment on above:Performed By: #### SCAN CBC, CMP ####[address] [place] Glucose [Mass/volume] in Serum or PlasmaOrdered By: Fabiola Marinelli on 05-17-2025 Glucose [Mass/Vol]146 mg/vPGzpx96-391MwuszunhoChildren'S Hospital For RehabilitationComment on above:Result Comment: Random Glucose Reference Range is dependent on time and content of last meal. Glucose of more than 200 mg/dL in a nonstressed, ambulatory subject supports the diagnosis of Diabetes Mellitus. ADA recommended reference rangePerformed By: #### SCAN CBC, CMP ####[facility] [place] [address] USAHematocrit [Volume Fraction] of Blood by Automated countOrdered By: Fabiola Marinelli on 18-83-4928Oqaouhemts (Bld) [Volume fraction]31.3 %Low34.0-46.4FOhioHealth Arthur G.H. Bing, MD, Cancer CenterComment on above: Performed By: #### SCAN CBC, CMP ####[address] [place] [address] USAHemoglobin A1c/Hemoglobin.total in BloodOrdered By: Emely Pedersen on 02-78-3308KrL3o (Bld) [Mass fraction]5.7 %High4.3-5.6FOhioHealth Arthur G.H. Bing, MD, Cancer CenterComment on above:Result Comment: Increased risk for diabetes: 5.7 - 6.4 diabetes: >6.4 glycemic control for adults with diabetes: <7.0Performed By: #### A1C WTH eA, PT ####[address] [address] USAHemoglobin [Mass/volume] in BloodOrdered By: Fabiola Marinelli on 55-69-3554Ifhdmsznwf (Bld) [Mass/Vol]10.5 g/dLLow11.8-15.4FOhioHealth Arthur G.H. Bing, MD, Cancer CenterComment on above:Performed By: #### SCAN CBC, CMP ####[address] [address] USAINR in Platelet poor plasma by Coagulation assayOrdered By: Emely Pedersen on 05-17-2025 INR Coag (PPP) [Relative time]1.2 {INR}[facility] Comment on above:Result Comment: INR Therapeutic [...] with mechanical heart valves: 3 - 4.5PERFORMED BY:[address]ARP[address] ROS[place]OW[place]OVER, [place] [phone] MEDICAL DIRECTORARIEL BRUCE M.D.Performed By: #### A1C WTH eA, PT ####[address] [address] USALeukocytes [#/volume] corrected for nucleated erythrocytes in Blood by Automated counOrdered By: Fabiola Marinelli on 06-06-9037JJS corrected for nucl RBC Auto (Bld) [#/Vol]2.2 10*3/uLLow 3.8-11.6FOhioHealth Arthur G.H. Bing, MD, Cancer CenterLeukocytes [#/volume] in Blood by Automated countOrdered By: Fabiola Marinelli on 23-41-1818MPR (Bld) [#/Vol]2.2 10*3/uL Low3.8-11.6FOhioHealth Arthur G.H. Bing, MD, Cancer CenterComment on above:Performed By: #### SCAN CBC, CMP ####[address] [address] USALymphocytes [#/volume] in Blood by Automated countOrdered By: Fabiola Marinelli on 69-25-1468Uuthhegicit (Bld) [#/Vol]0.4 10*3/uLLow1.00-4.8[facility] Hospital For RehabilitationComment on above:Performed By: #### SCAN CBC, CMP ####[address] [address] USALymphocytes/100 leukocytes in Blood by Automated countOrdered By: Fabiola Marinelli on 05-17-2025 Lymphocytes/100 WBC (Bld)19.3 %Normal.[facility] Hospital For RehabilitationComment on above:Performed By: #### SCAN CBC, CMP ####[address] [address] USAMCH [Entitic mass] by Automated countOrdered By: Fabiola Marinelli on 45-37-3474NVQ (RBC) [Entitic mass]33.7 tzGujiiv20.7-34.3 [facility] For RehabilitationComment on above:Performed By: #### SCAN CBC, CMP ####[address] [address] [place] MCHC Auto (RBC) [Mass/Vol]Ordered By: Fabiola Yves on 93-75-4800KJUO (RBC) [Mass/Vol]33.6 g/dL32.0-35.0[facility] For RehabilitationMCV [Entitic volume] by Automated countOrdered By: Fabiola Marinelli on 84-98-5777FHP (RBC) [Entitic vol]100.5 hYFjtc91-217ChgdxfhlsChildren'S Hospital For RehabilitationComment on above: Performed By: #### SCAN CBC, CMP ####[address] USAMonocytes [#/volume] in Blood by Automated count Ordered By: Fabiola Marinelli on 76-93-6594Ksbmgywro (Bld) [#/Vol]0.4 10*3/uLNormal 0.0-0.8[facility] Hospital For RehabilitationComment on above:Performed By: #### SCAN CBC, CMP ####[address] [address] USAMonocytes/100 leukocytes in Blood by Automated countOrdered By: Fabiola Marinelli on 00-66-1527Jbxbvqsfd/100 WBC (Bld)18.7 %Normal.[facility] Comment on above:Performed By: #### SCAN CBC, CMP ####[address] [address] USANeutrophils [#/volume] in Blood by Automated countOrdered By: Fabiola Marinelli on 82-99-6792Nxhwrpztsyi (Bld) [#/Vol]0.7 10*3/uLLow1.8-7.7FOhioHealth Arthur G.H. Bing, MD, Cancer CenterComment on above:Performed By: #### SCAN CBC, CMP ####[address] [address] USANeutrophils/100 leukocytes in Blood by Automated countOrdered By: Fabiola Marinelli on 37-34-8968Gfjfblhselx/100 WBC (Bld)30.9 %Normal.[facility] Hospital For RehabilitationComment on above:Performed By: #### SCAN CBC, CMP ####[facility] [address] [place] [address] USANo Panel Information Ordered By: Fabiola Marinelli on 05-17-2025> 60.0 mL/MinChildren'S Hospital For Rehabilitation57.77[facility] For RehabilitationNucleated erythrocytes [Presence] in Blood by Automated countOrdered By: Fabiola Marinelli on 89-06-4197Bgfquwhjs RBC Auto Ql (Bld)0.1 /100{WBC}0-0.5FOhioHealth Arthur G.H. Bing, MD, Cancer CenterOvalocytes [Presence] in Blood by Light microscopyOrdered By: Fabiola Marinelli on 17-87-7054Vxyyianqkm LM Ql (Bld)Nationwide Children's HospitalPlatelet adequacy [Presence] in Blood by Light microscopyOrdered By: Fabiola Marinelli on 61-88-8240Gkmzxuhwx LM Ql (Bld)DecreasedNoLutheran HospitalPlatelet mean volume [Entitic volume] in Blood by Automated countOrdered By: Fabiola Marinelli on 05-17-2025 Platelet mean volume (Bld) [Entitic vol]9.0 fLNormal6.3-10.7FOhioHealth Arthur G.H. Bing, MD, Cancer CenterComment on above:Performed By: #### SCAN CBC, CMP ####[facility] [address] [place] [address] USAPlatelet morphology finding [Identifier] in BloodOrdered By: Fabiola Marinelli on 30-49-2667Txiuptrb morphology finding Nom (Bld)NormalDoctors Hospital Platelets [#/volume] in Blood by Automated countOrdered By: Fabiola Marinelli on 52-32-7919Yubhovkon (Bld) [#/Vol]55 10*3/nGQrj604-553CihldgxvkChildren'S Hospital For RehabilitationComment on above:Performed By: #### SCAN CBC, CMP ####[facility] [address] [place] [address] USAPoikilocytosis [Presence] in Blood by Light microscopyOrdered By: Fabiola Marinelli on 07-65-8386Ruaygjbnyufsui LM Ql (Bld)Nationwide Children's HospitalPotassium [Moles/volume] in Serum or PlasmaOrdered By: Fabiola Marinelli on 29-30-9014Jmqgqwuhl [Moles/Vol]4.3 mmol/L Normal3.5-5.1FOhioHealth Arthur G.H. Bing, MD, Cancer CenterComment on above:Performed By: #### SCAN CBC, CMP ####[address] [address] USAProtein [Mass/volume] in Serum or PlasmaOrdered By: Fabiola Marinelli on 84-84-3222Edihheg [Mass/Vol]5.3 g/dLLow6.4-8.9[facility] Comment on above:Performed By: #### SCAN CBC, CMP ####[address] [address] USAProthrombin time (PT)Ordered By: Emely Pedersen on 14-50-7687LC Coag (PPP) [Time]13.8 sHigh9.0-12.9[facility] Hospital For RehabilitationComment on above:Result Comment: A hematocrit value greater than 55% may lead to inaccurate results in coagulation testing. Patients having hematocrit values >55% require a special collection tube for coagulation studies. Please contact the laboratory at [phone] for redraw instructions. Performed By: #### A1C WTH eA, PT ####[address] [address] USAScan and CBCon 94-86-7802Zzth Corpuscular HGB Conc 33.6 g/eSBpqzup18.0-35.0The [facility]alachian Physician GroupComment on above:Performed By: #### SCAN CBC, CMP ####[address] [address] USANRBC%0.1 /100{WBC}Normal0-0.5The [facility]al[facility]ian Physician GroupComment on above:Performed By: #### SCAN CBC, CMP ####[address] [address] USAOvalocytesSlightNormalThe [facility]al[facility]ian Physician GroupComment on above:Performed By: #### SCAN CBC, CMP ####[address] [address] [place] Platelet EstimateDecreasedNormalSt. Vincent's [facility] Southside Physician Magee General HospitalComment on above:Performed By: #### SCAN CBC, CMP ####[address] [address] USAPlatelet MorphologyNormalNormalNoCritical access hospital Physician [facility] General HospitalComment on above:Result Comment: PERFORMED BY:[address] [place], [place] [phone] MEDICAL DIRECTORARIEL BRUCE M.D.Performed By: #### SCAN CBC, CMP ####[address] [address] [facility] CENTERB PoikilocytosisSlightSt. Vincent's Medical Center Southside Physician [facility]e General HospitalComment on above: Performed By: #### SCAN CBC, CMP ####[address] [address] USAWhite Blood Count2.2 [CFU]/mLLow3.8-11.6The [facility]ian Physician GroupComment on above:Performed By: #### SCAN CBC, CMP ####[address] USASerum globulin measurement by calculation (mass/volume)Ordered By: Fabiola Marinelli on 05-96-6331Hptgaayr (S) [Mass/Vol]2.0 g/dLNoLutheran Hospital Comment on above:Performed By: #### SCAN CBC, CMP ####[address] USASerum or plasma albumin/globulin mass ratioOrdered By: Fabiola Marinelli on 65-05-7698Tyynhzm/Globulin [Mass ratio]1.7 {ratio}Doctors HospitalComment on above:Performed By: #### SCAN CBC, CMP ####[address] USASerum or plasma anion gap determinationOrdered By: Fabiola Marinelli on 78-76-8703Aitye gap [Moles/Vol]8.8 mmol/LNormal6.0-15.0[facility] Hospital For RehabilitationComment on above:Performed By: #### SCAN CBC, CMP ####[facility] [address] [place] [address] USASodium [Moles/volume] in Serum or PlasmaOrdered By: Fabiola Yves on 28-48-0956Snjjeh [Moles/Vol]137 mmol/DThzsza755-415FrvhjyaepChildren'S Hospital For RehabilitationComment on above:Performed By: #### SCAN CBC, CMP ####[facility] [address] [place] [address] USAUrea nitrogen [Mass/volume] in Serum or Plasma Ordered By: Fabiola Marinelli on 86-66-8775Hpqa nitrogen [Mass/Vol]23 mg/dLNormal7-25 [facility] For RehabilitationComment on above:Performed By: #### SCAN CBC, CMP ####[facility] [address] [place] [address] USAX- ray reportOrdered By: Esteban Kumar on 88-11-9916Gvvts reportChildren'S Hospital For Rehabilitation Work Phone: XR chest 2V*on 73-33-1029ZQ chest 2V*NormalThe [facility]al[facility]ian Physician GroupCNPNon 97-85-8912DPLKFqvzoidti (4CQ) MOJGAN PÉREZ ([id number]) 1955 F Date Time Provider Department 04/24/25 JUAN J MENDEZ 4CQ During your visit today, we recorded the following information about you: Blair Masters 04/24/2025 11:03 AM Chemo Ulrich is calling Juan J Mendez MD today [...] calling: self Call patient at: at home [phone] (home) [phone] (cell) Was an appointment scheduled: No Closing statement: Results or non-symptom based questions: Thank you for calling [facility], your call will be returned within the [...] PARAPROTEINEMIA [D47.2] 03/26/2006 MYALGIA AND MYOSITIS NOS [[id number]] 03/26/2006 GENERAL OSTEOARTHROSIS [M15.9] 04/15/2006 VITAMIN D [...] (nonalcoholic*07/11/2019 Encounter Status:Closed by TESHA EPPS on 04/26/25NoalCSelect Medical Specialty Hospital - AkronIMMUNOGLOBULINS A/G/M, QN, SERon 49-59-5641HAGOBOOSNXGOEQ A, SERUMmg/dL 87 - 352 mg/dLNOMS HealthcareComment on above:Result confirmed on concentration. IMMUNOGLOBULIN G583 mg/dL586 - 1602 mg/dLNOAR HealthcareIMMUNOGLOBULIN M, SERUM mg/dL26 - 217 mg/dLNOAR HealthcareComment on above:Result confirmed on concentration. Performed at: - [facility] [id number] Door Glass Installer: Lang Knight PhD, Phone: [phone] NOMS HealthcareBasophils/100 leukocytes in Blood by Manual countOrdered By: Fabiola Marinelli on 52-15-2468Aqdvafrrb/100 WBC (Bld)1 %Normal0-2FOhioHealth Arthur G.H. Bing, MD, Cancer CenterComment on above:Performed By: #### CREAT, DIFF CBC ####[address] [address] USACreatinineon 30-37-4051Fppgzoaipo [Mass/Vol]0.92 mg/dLNormal0.60-1.20The [facility]ian Physician GroupComment on above:Performed By: #### CREAT, DIFF CBC ####[address] [address] USACreatinine Clr Calc Pharmacy 60.26NoCritical access hospital Physician [facility] General HospitalComment on above:Result Comment: PERFORMED BY:[address] TSERINGRobertoErnaMOWEA[place], [place] [phone] MEDICAL BARBIE BRUCE M.D.Performed By: #### CREAT, DIFF CBC ####[address] [address] USAGFR/1.73 sq M.predicted MDRD (S/P/Bld) [Vol rate/Area]mL/min/{1.73_m2}NormalThe [facility] Appalachian Physician GroupComment on above: Performed By: #### CREAT, DIFF CBC ####[address] [address] USACreatinine [Mass/Vol]on 83-00-8211Kburukrtda (U) [Mass/Vol]0.92 mg/dL0.60 - 1.20 mg/dLFILLMORE COMMUNITY MEDICAL [facility]ENTER HealthcareCREATININE CLR CALC PHARMACY 60.26NOMS HealthcareESTIMATED GFRmL/MinNOMS HealthcareNOMS HealthcareDiff and CBCon 78-08-8778Zgpoqwhzfxo distribution width (RBC) [Ratio]15.2 %Normal 11.9-15.3The [facility]alachian Physician GroupComment on above:Performed By: #### CREAT, DIFF CBC ####[address] [address] USAGiant Platelet Tally1 /100{WBC}NormalThe [facility] Appalachian Physician GroupComment on above:Performed By: #### CREAT, DIFF CBC ####[address] [address] USAHematocrit (Bld) [Volume fraction]37.0 %Normal 34.0-46.4The [facility]alachian Physician GroupComment on above:Performed By: #### CREAT, DIFF CBC ####[place] [address] USAHemoglobin (Bld) [Mass/Vol]12.4 g/iMRtnyww63.8-15.4The [facility]ian Physician GroupComment on above:Performed By: #### CREAT, DIFF CBC ####[address] [address] USAMCH (RBC) [Entitic mass]34.3 wpCztjqh96.7-34.3The [facility]alachian Physician GroupComment on above:Performed By: #### CREAT, DIFF CBC ####[address] [address] USAMCV (RBC) [Entitic vol]101.9 lIUozk95-313Gaq [facility] Physician GroupComment on above:Performed By: #### CREAT, DIFF CBC ####[address] [address] USAMean Corpuscular HGB Conc33.7 g/sUEekkdx77.0-35.0The [facility] Physician GroupComment on above:Performed By: #### CREAT, DIFF CBC ####[address] [address] USAMetamyelocytes1 %High0-0The [facility]achian Physician GroupComment on above:Performed By: #### CREAT, DIFF CBC ####[address] [address] USAOvalocytesSlight NormalTrinity Community Hospital Physician [facility]e General HospitalComment on above:Performed By: #### CREAT, DIFF CBC ####[address] [address] USAPlatelet EstimateDecreasedNormalNormShorePoint Health Punta Gorda Physician GroupComment on above:Performed By: #### CREAT, DIFF CBC ####[address] [address] USAPlatelet mean volume (Bld) [Entitic vol]8.6 fL Normal6.3-10.7The [facility]ian Physician GroupComment on above:Performed By: #### CREAT, DIFF CBC ####[address] [address] USAPlatelet MorphologyNormalNormalNoCritical access hospital Physician Group Comment on above:Result Comment: PERFORMED BY:[address] [place], [place] [phone] MEDICAL DIRECTORARIEL BRUCE M.D.Performed By: #### CREAT, DIFF CBC ####[address] [address] USAPlatelets (Bld) [#/Vol]49 10*3/fEWve095-011Wfj [facility] Physician GroupComment on above: Performed By: #### CREAT, DIFF CBC ####[address] [address] USAPoikilocytosisSlightNormShorePoint Health Punta Gorda Physician [facility] HospitalComment on above:Performed By: #### CREAT, DIFF CBC ####[address] [address] USARBC (Bld) [#/Vol]3.63 10*6/uL Normal3.60-5.00The [facility]alachian Physician GroupComment on above:Performed By: #### CREAT, DIFF CBC ####[address] [address] USAWBC (Bld) [#/Vol]2.0 10*3/uLLow3.8-11.6The [facility] Comment on above:Performed By: #### CREAT, DIFF CBC ####[facility] [place] [address] USAEosinophils/100 leukocytes in Blood by Manual countOrdered By: Fabiola Marinelli on 88-06-8085Ivjkxpbmwxc/100 WBC (Bld)10 %High13FOhioHealth Arthur G.H. Bing, MD, Cancer CenterComment on above:Performed By: #### CREAT, DIFF CBC ####[address] [place] [address] USAGiant platelets/100 leukocytes [Ratio] in Blood by Manual countOrdered By: Fabiola Marienlli on 30-36-4010Nvalt platelets/100 WBC Manual cnt (Bld) [Ratio]1 /100{WBC}[facility] Hospital For RehabilitationImmunoglobulins A/G/M, Qn, Seron 13-45-5931Tltrrdhlcntkxc A, Serum<0Ggrwyd00-709Xnw [facility] Physician GroupComment on above:Result Comment: Result confirmed on concentration.Performed By: #### IMM OSCAR ####[facility] , Immunoglobulin G583 mg/uZCibonk341-6091Hxf [facility] Physician GroupComment on above:Performed By: #### IMM OSCAR ####[facility] ,Immunoglobulin M, Serum<5Lsvtmg22-670Uvy [facility] Physician GroupComment on above:Result Comment: Result confirmed on concentration. Performed at: - [facility] [address] [id number] Door Glass Installer: Lang Knight PhD, Phone: [phone] BY:[address] [place], [place] [phone] MEDICAL DIRECTORARIEL BRUCE M.D.Performed By: #### IMM OSCAR ####[facility] ,Lymphocytes/100 leukocytes in Blood by Manual countOrdered By: Fabiola Marinelli on 14-95-1212Rwfonztcojd/100 WBC (Bld)23 % Sbbxff98-31XzsttnljbChildren'S Hospital For RehabilitationComment on above:Performed By: #### CREAT, DIFF CBC ####[facility] [address] [place] [address] USAMR abdomen wo/w conon 21-24-0361SE abdomen wo/w conNormalThe [facility] Physician GroupMetamyelocytes/100 WBC Manual cnt (Bld)Ordered By: Fabiola Marinelli on 27-32-0074Lbqaoybrclgnyx/100 WBC (Bld)1 %High0-0Children[facility] Hospital For RehabilitationMonocytes/100 leukocytes in Blood by Manual countOrdered By: Fabiola Marinelli on 14-82-8437Ahwihzzvd/100 WBC (Bld)14 %High2-11[facility] Comment on above:Performed By: #### CREAT, DIFF CBC ####[facility] [address] [place] [address] USASegmented neutrophils/100 leukocytes in Blood by Manual countOrdered By: Fabiola Marinelli on 20-78-2610Twurkfjft neutrophils/100 WBC (Bld)52 %Vqrfns39-21BpklncspqChildren'S Hospital For RehabilitationComment on above:Performed By: #### CREAT, DIFF CBC ####[facility] [address] [place] [address] USASerum or plasma IgA measurement (mass/volume)Ordered By: Fabiola Marinelli on 22-45-2117NrB [Mass/Vol]mg/mNPfq11-252 Summa Healtherum or plasma IgG measurement (mass/volume) Ordered By: Fabiola Marinelli on 28-73-6214KtH [Mass/Vol]583 mg/sAJcw116-3984FvhdagpocSumma Healtherum or plasma IgM measurement (mass/volume)Ordered By: Fabiola Marinelli on 46-43-9271NsP [Mass/Vol]mg/aWDls71-570McqbiwbsgChildren'S Hospital For RehabilitationLaboratory - Microbiology and Antimicrobial susceptibilityon 04-10-2025 SARS-CoV-2 (COVID-19) RNA JOHANN+probe Ql (Unsp spec)NegativeNOAR HealthcareNo Panel Informationon 01-23-1618Nfsvsrcmwkpwkk and review of laboratory results NormalNOOzarks Medical CenterNOAR HealthcareUrinalysis macro (dipstick) panel (U)Ordered By: Polina Ferrari on 71-53-7230Cmirilepx, UANegativeNegative - 4(70) +++ mg/dL NOMS HealthcareBlood, UANegativeNegative - 50 Michael/mcLNOAR HealthcareClarity, UA ClearNOMS HealthcareColor, UAYellowNOMS HealthcareGlucose, UANegativeNegative - 2000(110) ++++ mg/dLNOAR HealthcareInterpretation and review of laboratory resultsAbnormalNOMS HealthcareKetones, UANegativeNegative - 160(16) ++++ mg/dL NOMS HealthcareLeukocytes, UATraceNegative - 500+++ Mahamed/mcLNOAR Healthcare Nitrite, UANegativeNegative - PositiveNOMS HealthcarepH, UA75 - 9NOAR Healthcare Protein, UANegativeNegative - 2000(20) ++++ mg/dLFILLMORE COMMUNITY MEDICAL CENTER HealthcareSpec Grav, UA 1.0051 - 1.03NOAR HealthcareUrobilinogen, UA0.20.2 - 12 mg/dLMercy Hospital St. LouisNOAR HealthcareComprehensive Metabolic Panelon 00-75-5686Swhnfsn [Mass/Vol]3.6 g/dL Normal3.5-5.7The [facility] Physician GroupComment on above:Performed By: #### PATH SLIDE REV, SCAN CBC, CMP ####[facility] [place] [address] USAAlbumin/Globulin [Mass ratio]1.6 {ratio}NormalThe [facility] Physician GroupComment on above:Performed By: #### PATH SLIDE REV, SCAN CBC, CMP ####[facility] [place] [address] USAALP [Catalytic activity/Vol]146 U/NGfyo44-827Jsb Warren General HospitalComment on above:Performed By: #### PATH SLIDE REV, SCAN CBC, CMP ####[facility] [place] [address] USAALT [Catalytic activity/Vol]19 U/LNormal7-52The [facility] Physician GroupComment on above:Performed By: #### PATH SLIDE REV, SCAN CBC, CMP ####[facility] [place] [address] USAAnion gap [Moles/Vol]9.3 mmol/LNormal6.0-15.0The [facility] GroupComment on above:Performed By: #### PATH SLIDE REV, SCAN CBC, CMP ####[address] [place] [address] USAAST [Catalytic activity/Vol]34 U/SCaxwwn90-55Giq [facility] GroupComment on above:Performed By: #### PATH SLIDE REV, SCAN CBC, CMP ####[address] [place] [address] USABilirubin [Mass/Vol]1.0 mg/dLNormal0.3-1.0The [facility] Comment on above:Performed By: #### PATH SLIDE REV, SCAN CBC, CMP ####[address] [address] USACalcium [Mass/Vol]8.7 mg/dLNormal8.6-10.3The [facility]ician GroupComment on above:Performed By: #### PATH SLIDE REV, SCAN CBC, CMP ####[address] [address] USAChloride [Moles/Vol]104 mmol/NEskqvh45-639Lsm [facility] GroupComment on above:Performed By: #### PATH SLIDE REV, SCAN CBC, CMP ####[address] [address] USACO2 [Moles/Vol]29.7 mmol/ZWistok13.0-31.0The [facility] Comment on above:Performed By: #### PATH SLIDE REV, SCAN CBC, CMP ####[address] [address] USACreatinine [Mass/Vol] 1.04 mg/dLNormal0.60-1.20The [facility]ician GroupComment on above:Performed By: #### PATH SLIDE REV, SCAN CBC, CMP ####[address] [address] USACreatinine Clr Calc Zgrpbewr13.87NormalThe [facility] Physician GroupComment on above:Result Comment: PERFORMED BY:[address]ETJunaidMOWEAQUA, [place] [phone] MEDICAL DIRECTORARIEL BRUCE M.D.Performed By: #### PATH SLIDE REV, SCAN CBC, CMP ####[address] [place] [address] USAEstimated GFR58.908 mL/MinNoCritical access hospital Physician GroupComment on above:Performed By: #### PATH SLIDE REV, SCAN CBC, CMP ####[address] [address] USAGlobulin (S) [Mass/Vol]2.2 g/dLSt. Vincent's Medical Center Southside Physician GroupComment on above:Performed By: #### PATH SLIDE REV, SCAN CBC, CMP ####[address] [address] USAGlucose [Mass/Vol]116 mg/qSTlcg01-275Eqf [facility] GroupComment on above:Result Comment: Random Glucose Reference Range is dependent on time and content of last meal. Glucose of more than 200 mg/dL in a nonstressed, ambulatory subject supports the diagnosis of Diabetes Mellitus. ADA recommended reference rangePerformed By: #### PATH SLIDE REV, SCAN CBC, CMP ####[address] [address] [place] Potassium [Moles/Vol]4.0 mmol/LNormal3.5-5.1The [facility]ician GroupComment on above:Performed By: #### PATH SLIDE REV, SCAN CBC, CMP ####[address] [address] USAProtein [Mass/Vol]5.8 g/dLLow6.4-8.9The [facility]ician GroupComment on above:Performed By: #### PATH SLIDE REV, SCAN CBC, CMP ####[address] [address] USASodium [Moles/Vol]139 mmol/GSsfhdk880-306Xpv [facility] GroupComment on above:Performed By: #### PATH SLIDE REV, SCAN CBC, CMP ####[facility] [address] [place] [address] USAUrea nitrogen [Mass/Vol]19 mg/dLNormal7-e [facility] Comment on above:Performed By: #### PATH SLIDE REV, SCAN CBC, CMP ####[facility] [address] [place] [address] USAComprehensive metabolic panelon 02-83-3654Yawloep [Mass/Vol]3.6 g/dL3.5 - 5.7 g/dLNOAR HealthcareAlbumin/Globulin [Mass ratio]1.6 {ratio}NOMS HealthcareALP [Catalytic activity/Vol]146 U/LHigh34 - 104 U/LNOMS HealthcareALT [Catalytic activity/Vol] 19 U/L7 - 52 U/LNOMS HealthcareAnion gap [Moles/Vol]9.3 mmol/L6.0 - 15.0 meq/L NOMS HealthcareAST [Catalytic activity/Vol]34 U/L13 - 39 U/LNOMS Healthcare Bilirubin [Mass/Vol]1 mg/dL0.3 - 1.0 mg/dLNOAR HealthcareCalcium [Mass/Vol]8.7 mg/dL8.6 - 10.3 mg/dLNOAR HealthcareChloride [Moles/Vol]104 mmol/L98 - 107 mmol/LNOMS HealthcareCO2 [Moles/Vol]29.7 mmol/L21.0 - 31.0 mmol/LNOMS Healthcare Creatinine (U) [Mass/Vol]1.04 mg/dL0.60 - 1.20 mg/dLNOAR HealthcareCREATININE CLR CALC VWUFXRKH49.87NOMS HealthcareGFR/1.73 sq M.predicted MDRD (S/P/Bld) [Vol rate/Area]58.908 mL/min/{1.73_m2}mL/MinNOAR HealthcareGlobulin (S) [Mass/Vol] 2.2 g/dLNOAR HealthcareGlucose [Mass/Vol]116 mg/uRPtjl49 - 100 mg/dLNOAR HealthcareComment on above:Random Glucose Reference Range is dependent on time and content of last meal. Glucose of more than 200 mg/dL in a nonstressed, ambulatory subject supports the diagnosis of Diabetes Mellitus. ADA recommended reference range Interpretation and review of laboratory resultsAbnormalNOMS HealthcarePotassium [Moles/Vol]4 mmol/L3.5 - 5.1 mmol/LNOMS HealthcareProtein [Mass/Vol]5.8 g/dLLow 6.4 - 8.9 g/dLNOAR HealthcareSodium [Moles/Vol]139 mmol/L136 - 145 mmol/LNOMS HealthcareUrea nitrogen [Mass/Vol]19 mg/dL7 - 25 mg/dLNOAR HealthcareNOAR HealthcareLon 11-37-8681JMcnfpgUkq [facility] HospitalNo Panel Information Ordered By: Fabiola Marinelli on 73-56-9728Kimtxkd path reviewChildren'S Hospital For RehabilitationPATHOLOGIST SLIDE REVIEW ([facility])on 26-75-2485EOFNQHTJDWI SLIDE REVIEW Ordered Path ReviewFormerly Alexander Community HospitalPathologist Slide Reviewon 62-45-2714Ykdgrqukgmy Slide ReviewOrdered Path ReviewSt. Vincent's Medical Center Southside Physician [facility] General HospitalComment on above:Result Comment: PERFORMED BY:[address] [place], [place] [phone] MEDICAL BARBIE BRUCE M.D.Performed By: #### PATH SLIDE REV, SCAN CBC, CMP ####[address] [address] [facility] CENTERB Polychromasia [Presence] in Blood by Light microscopyOrdered By: Fabiola Marinelli on 64-28-7335Ouxqzsgfwckfz LM Ql (Bld)SlightSumma Healthcan and CBCon 11-71-8333Proykjdjeyoo Ql (Bld)ModerateVirginia HospitalComment on above:Performed By: #### PATH SLIDE REV, SCAN CBC, CMP ####[address] [address] [facility] CENTERB Basophils (Bld) [#/Vol]0.0 10*3/uLNormal0.0-0.2The [facility] Comment on above:Result Comment: PERFORMED BY:[address] [place] [place], [place] [phone] MEDICAL BARBIE BRUCE M.D.Performed By: #### PATH SLIDE REV, SCAN CBC, CMP ####[address] [place] [address] [place] Basophils/100 WBC (Bld)0.7 %Normal.The [facility]ician GroupComment on above:Performed By: #### PATH SLIDE REV, SCAN CBC, CMP ####[place] [address] USAEosinophils (Bld) [#/Vol]0.3 10*3/uLNormal0.0-0.45The [facility] GroupComment on above:Performed By: #### PATH SLIDE REV, SCAN CBC, CMP ####[place] [address] USAEosinophils/100 WBC (Bld)13.0 %Normal.The [facility] GroupComment on above:Performed By: #### PATH SLIDE REV, SCAN CBC, CMP ####[address] Erythrocyte distribution width (RBC) [Ratio]16.1 %High11.9-15.3The [facility] Physician GroupComment on above:Performed By: #### PATH SLIDE REV, SCAN CBC, CMP ####[address] Hematocrit (Bld) [Volume fraction]35.4 %Jeejcw00.0-46.4The [facility] GroupComment on above:Performed By: #### PATH SLIDE REV, SCAN CBC, CMP ####[place] [address] [place] Hemoglobin (Bld) [Mass/Vol]12.1 g/lLFbmyxn07.8-15.4The [facility] Comment on above:Performed By: #### PATH SLIDE REV, SCAN CBC, CMP ####[place] [address] USALymphocytes (Bld) [#/Vol]0.4 10*3/uLLow1.00-4.8The [facility] GroupComment on above: Performed By: #### PATH SLIDE REV, SCAN CBC, CMP ####[place] [address] USALymphocytes/100 WBC (Bld)19.9 %Normal. The [facility] Physician GroupComment on above:Performed By: #### PATH SLIDE REV, SCAN CBC, CMP ####[address] [address] [facility]BC) [Entitic mass]34.1 srYsmvgz13.7-34.3The [facility] GroupComment on above:Performed By: #### PATH SLIDE REV, SCAN CBC, CMP ####[address] [id number] [facility] ([facility]BC) [Entitic vol]99.9 qRHwvrfs04-947Dvg [facility] GroupComment on above:Performed By: #### PATH SLIDE REV, SCAN CBC, CMP ####[address] [address] USAMean Corpuscular HGB Conc34.1 g/eIQefnns74.0-35.0The [facility]ician GroupComment on above:Performed By: #### PATH SLIDE REV, SCAN CBC, CMP ####[address] USAMonocytes (Bld) [#/Vol]0.3 10*3/uLNormal0.0-0.8The [facility] GroupComment on above:Performed By: #### PATH SLIDE REV, SCAN CBC, CMP ####[address] USAMonocytes/100 WBC (Bld)14.1 %Normal.The [facility] Comment on above:Performed By: #### PATH SLIDE REV, SCAN CBC, CMP ####[address] [address] USANeutrophils (Bld) [#/Vol]1.1 10*3/uLLow1.8-7.7The [facility] GroupComment on above: Performed By: #### PATH SLIDE REV, SCAN CBC, CMP ####[address] [address] USANeutrophils/100 WBC (Bld)52.3 %Normal. The [facility] Physician GroupComment on above:Performed By: #### PATH SLIDE REV, SCAN CBC, CMP ####[address] [address] USANRBC%0.1 /100{WBC}Normal0-0.5The [facility] Physician GroupComment on above:Performed By: #### PATH SLIDE REV, SCAN CBC, CMP ####[address] [address] USAOvalocytesModerateNormShorePoint Health Punta Gorda Physician GroupComment on above:Performed By: #### PATH SLIDE REV, SCAN CBC, CMP ####[address] [address] USAPlatelet EstimateDecreasedLowSt. Vincent's Medical Center Southside Physician GroupComment on above:Performed By: #### PATH SLIDE REV, SCAN CBC, CMP ####[place] [address] USAPlatelet mean volume (Bld) [Entitic vol]7.7 fLNormal6.3-10.7The [facility]ician GroupComment on above:Performed By: #### PATH SLIDE REV, SCAN CBC, CMP ####[place] [address] USAPlatelet MorphologyNormal NormalNormShorePoint Health Punta Gorda Physician GroupComment on above:Result Comment: PERFORMED BY:[address] [place], [place] [phone] MEDICAL BARBIE BRUCE M.D.Performed By: #### PATH SLIDE REV, SCAN CBC, CMP ####[address] [address] USAPlatelets (Bld) [#/Vol]50 10*3/eRCiq833-472Eyw [facility] GroupComment on above:Performed By: #### PATH SLIDE REV, SCAN CBC, CMP ####[address] [address] USAPoikilocytosisModerateSt. Vincent's Medical Center Southside Physician GroupComment on above:Performed By: #### PATH SLIDE REV, SCAN CBC, CMP ####[facility] [address] [place] [address] USAPolychromasiaSlightNormalThe [facility] Physician GroupComment on above:Performed By: #### PATH SLIDE REV, SCAN CBC, CMP ####[facility] [place] [address] USARBC (Bld) [#/Vol]3.55 10*6/uLLow3.60-5.00The [facility] Comment on above:Performed By: #### PATH SLIDE REV, SCAN CBC, CMP ####[address] [place] [address] USAStomatocytesSlight NormalThe [facility]ician GroupComment on above:Performed By: #### PATH SLIDE REV, SCAN CBC, CMP ####[facility] [place] [address] USAWBC (Bld) [#/Vol]2.1 10*3/uLLow3.8-11.6The [facility] GroupComment on above:Performed By: #### PATH SLIDE REV, SCAN CBC, CMP ####[address] [place] [address] [place] Stomatocytes [Presence] in Blood by Light microscopyOrdered By: Fabiola Marinelli on 49-29-5023Oqudfvnyvker LM Ql (Bld)[facility] IMMUNOGLOBULINS A/G/M, QN, SERon 59-75-9691ZFSAFWOSMWJHYL A, SERUMmg/dLLow87 - 352 mg/dLFILLMORE COMMUNITY MEDICAL CENTER HealthcareComment on above:Result confirmed on concentration. IMMUNOGLOBULIN G895 mg/dL586 - 1602 mg/dLFILLMORE COMMUNITY MEDICAL CENTER HealthcareIMMUNOGLOBULIN M, SERUM mg/dLLow26 - 217 mg/dLFILLMORE COMMUNITY MEDICAL CENTER HealthcareComment on above:Result confirmed on concentration. Performed at: [facility] Lab[address] [id number] Door Glass Installer: Lang Knight PhD, Phone: [phone] Interpretation and review of laboratory resultsAbnoStoughton HospitalAFP Tumor Marker, Serumon 21-57-7977DQB Tumor Marker, Serum16.8 ng/mL High0.0-9.2The [facility] Physician GroupComment on above:Result Comment: [employer] Electrochemiluminescence Immunoassay (ECLIA) Values obtained with different assay methods or kits cannot be used interchangeably. Results cannot be interpreted as absolute evidence of the presence or absence of malignant disease. This test is not interpretable in females. Performed at: [facility] [address] [id number] Door Glass Installer: Lang Knight PhD, Phone: [phone] BY:[address] [phone] MEDICAL DIRECTORTAVIA SCHMIDT M.D.Performed By: #### NERY, SCAN CBC, FE and TIBC, CMP, PT ####[address]#### AFPTM ####[facility] ,Alanine aminotransferase [Enzymatic activity/volume] in Serum or PlasmaOrdered By: Garcia Sanchez on 71-88-6164TLV [Catalytic activity/Vol]Alanine aminotransferase [Enzymatic activity/volume] in Serum or Plasma7-52[facility] For RehabilitationAlbumin [Mass/volume] in Serum or Plasma by Bromocresol green (BCG) dye binding metho Ordered By: Garcia Sanchez on 78-24-2042Hymcaiq BCG dye [Mass/Vol]Albumin [Mass/volume] in Serum or Plasma by Bromocresol green (BCG) dye binding metho 3.5-5.7FOhioHealth Arthur G.H. Bing, MD, Cancer CenterAlkaline phosphatase [Enzymatic activity/volume] in Serum or PlasmaOrdered By: Garcia Sanchez on 61-95-9255DPI [Catalytic activity/Vol]Alkaline phosphatase [Enzymatic activity/volume] in Serum or CtcossZjtn24-362NzmwexkytChildren'S Hospital For RehabilitationAspartate aminotransferase [Enzymatic activity/volume] in Serum or PlasmaOrdered By: Garcia Sanchez on 16-66-0912NVW [Catalytic activity/Vol]Aspartate aminotransferase [Enzymatic activity/volume] in Serum or RltlygRjsc57-41VfuwquvxnChildren'S Hospital For RehabilitationBasophils Auto (Bld) [#/Vol]Ordered By: Garcia Sanchez on 03-15-2025 Basophils (Bld) [#/Vol]Automated basophil count0.0-0.2FOhioHealth Arthur G.H. Bing, MD, Cancer CenterBasophils/100 WBC Auto (Bld)Ordered By: Garcia Sanchez on 03-15-2025 Basophils/100 WBC (Bld)Automated basophil %.[facility] Bilirubin.total [Mass/volume] in Serum or PlasmaOrdered By: Garcia Sanchez on 12-73-6529Otkqzmewe [Mass/Vol]Bilirubin.total [Mass/volume] in Serum or Plasma 0.3-1.0[facility] For RehabilitationCalcium [Mass/volume] in Serum or Plasma Ordered By: Garcia Sanchez on 56-66-5234Ohhulnm [Mass/Vol]Calcium [Mass/volume] in Serum or Plasma8.6-10.3FOhioHealth Arthur G.H. Bing, MD, Cancer CenterCarbon dioxide, total [Moles/volume] in Serum or PlasmaOrdered By: Garcia Sanchez on 15-34-8276IW8 [Moles/Vol]Carbon dioxide, total [Moles/volume] in Serum or Vuzujx72.0-31.0 [facility] For RehabilitationChloride [Moles/volume] in Serum or Plasma Ordered By: Garcia Sanchez on 74-77-1544Dhmvwfbh [Moles/Vol]Chloride [Moles/volume] in Serum or Gdgkik34-146VebrmsrasChildren'S Hospital For Rehabilitation Comprehensive Metabolic Panelon 27-97-5013Blatriu [Mass/Vol]3.6 g/dLNormal 3.5-5.7The [facility] Physician GroupComment on above:Performed By: #### NERY, SCAN CBC, FE and TIBC, CMP, PT ####[facility] [address] [place] [address] [place]#### AFPTM ####[facility] , Albumin/Globulin [Mass ratio]1.4 {ratio}NormalThe [facility] Comment on above:Performed By: #### NERY, SCAN CBC, FE and TIBC, CMP, PT ####[facility] [address] [place] [address] [place]#### AFPTM ####[facility] ,ALP [Catalytic activity/Vol]171 U/YQdcj93-359Sbt [facility] Physician GroupComment on above:Performed By: #### NERY, SCAN CBC, FE and TIBC, CMP, PT ####[address]#### AFPTM ####[facility] ,ALT [Catalytic activity/Vol]28 U/L Normal7-52The [facility] Physician GroupComment on above:Performed By: #### NERY, SCAN CBC, FE and TIBC, CMP, PT ####[address]#### AFPTM ####[facility] ,Anion gap [Moles/Vol]10.5 mmol/LNormal6.0-15.0The [facility] Physician GroupComment on above:Performed By: #### NERY, SCAN CBC, FE and TIBC, CMP, PT ####[address]#### AFPTM ####[facility] ,AST [Catalytic activity/Vol]45 U/CUtba82-66Awl [facility]ician GroupComment on above:Performed By: #### NERY, SCAN CBC, FE and TIBC, CMP, PT ####[address]#### AFPTM ####[facility] ,Bilirubin [Mass/Vol]0.9 mg/dLNormal 0.3-1.0The [facility] Physician GroupComment on above:Performed By: #### NERY, SCAN CBC, FE and TIBC, CMP, PT ####[place] [address] [place]#### AFPTM ####[facility] ,Calcium [Mass/Vol]8.9 mg/dLNormal8.6-10.3The [facility] Physician GroupComment on above: Performed By: #### NERY, SCAN CBC, FE and TIBC, CMP, PT ####[place] [address] [place]#### AFPTM ####[facility] ,Chloride [Moles/Vol]104 mmol/QYnzhez82-193Abj [facility] Physician GroupComment on above:Performed By: #### NERY, SCAN CBC, FE and TIBC, CMP, PT ####[place] [address] [place]#### AFPTM ####[facility] ,CO2 [Moles/Vol]25.7 mmol/NZspaxs57.0-31.0The [facility]ician GroupComment on above:Performed By: #### NERY, SCAN CBC, FE and TIBC, CMP, PT ####[address]#### AFPTM ####[facility] ,Creatinine [Mass/Vol]0.99 mg/dL Normal0.60-1.20The [facility] Physician GroupComment on above:Performed By: #### NERY, SCAN CBC, FE and TIBC, CMP, PT ####[place] [address] [place]#### AFPTM ####[facility] ,Creatinine Clr Calc Zcrwtxod44.86NormalThSt. Luke's [facility] Physician GroupComment on above:Performed By: #### NERY, SCAN CBC, FE and TIBC, CMP, PT ####[place] [address] [place]#### AFPTM ####[facility] , GFR/1.73 sq M.predicted MDRD (S/P/Bld) [Vol rate/Area]mL/min/{1.73_m2}NormalThe [facility] General HospitalComment on above:Performed By: #### NERY, SCAN CBC, FE and TIBC, CMP, PT ####[place] [address] [place]#### AFPTM ####[facility] ,Globulin (S) [Mass/Vol]2.5 g/dL NormalThe [facility] Physician GroupComment on above:Performed By: #### NERY, SCAN CBC, FE and TIBC, CMP, PT ####[address]#### AFPTM ####[facility] ,Glucose [Mass/Vol]130 mg/gOKamf94-860Ply [facility] Physician GroupComment on above: Result Comment: Random Glucose Reference Range is dependent on time and content of last meal. Glucose of more than 200 mg/dL in a nonstressed, ambulatory subject supports the diagnosis of Diabetes Mellitus. ADA recommended reference rangePerformed By: #### NERY, SCAN CBC, FE and TIBC, CMP, PT ####[address]#### AFPTM ####[facility] ,Potassium [Moles/Vol]4.2 mmol/LNormal3.5-5.1The [facility] GroupComment on above:Performed By: #### NERY, SCAN CBC, FE and TIBC, CMP, PT ####[place] [address] [place]#### AFPTM ####[facility] ,Protein [Mass/Vol]6.1 g/dLLow6.4-8.9The [facility] Physician GroupComment on above:Performed By: #### NERY, SCAN CBC, FE and TIBC, CMP, PT ####[place] [address] [place]#### AFPTM ####[facility] ,Sodium [Moles/Vol]136 mmol/L Oxnesk666-860Iue [facility] Physician GroupComment on above:Performed By: #### NERY, SCAN CBC, FE and TIBC, CMP, PT ####[place] [address] [place]#### AFPTM ####[facility] ,Urea nitrogen [Mass/Vol]21 mg/dLNormal7e [facility] Physician GroupComment on above: Performed By: #### NERY, SCAN CBC, FE and TIBC, CMP, PT ####[facility] [place] [address] [facility]#### AFPTM ####[facility] ,Creatinine [Mass/volume] in Serum or PlasmaOrdered By: Garcia Sanchez on 59-42-2918Cgczcmzmgh [Mass/Vol]Creatinine [Mass/volume] in Serum or Plasma 0.60-1.20[facility] For RehabilitationEosinophils Auto (Bld) [#/Vol]Ordered By: Garcia Sanchez on 87-32-7346Vyfisrdpnnu (Bld) [#/Vol]Automated eosinophil count0.0-0.45[facility] For RehabilitationEosinophils/100 WBC Auto (Bld) Ordered By: Garcia Sanchez on 37-51-2025Fxuumrqosmz/100 WBC (Bld)Automated eosinophil %.[facility] For RehabilitationErythrocyte distribution width Auto (RBC) [Ratio]Ordered By: Garcia Sanchez on 74-12-7382Dpzipdchcvc distribution width (RBC) [Ratio]Erythrocyte distribution width [Ratio] by Automated count High11.9-15.3FOhioHealth Arthur G.H. Bing, MD, Cancer CenterErythrocyte morphology finding [Identifier] in BloodOrdered By: Garcia Sanchez on 10-90-5921QVV morphology finding Nom (Bld)RBC morphologyNormalChildren'S Hospital For RehabilitationFerritin [Mass/volume] in Serum or PlasmaOrdered By: Fabiola Marinelli on 83-16-2330Wmvghsbr [Mass/Vol]Ferritin [Mass/volume] in Serum or AtpgtrHoew99.0-306.8[facility] Hospital For RehabilitationFerritin [Mass/Vol]454.3 ng/mAXphp10.0-306.8[facility] For RehabilitationComment on above:Result Comment: PERFORMED BY:[place] [address] [place], [place] [phone] MEDICAL DIRECTORTAVIA SCHMIDT M.D.Performed By: #### NERY, SCAN CBC, FE and TIBC, CMP, PT ####[facility] [address]#### AFPTM ####[facility] ,Globulin Calc (S) [Mass/Vol] Ordered By: Garcia Sanchez on 59-81-9095Mlxohwhr (S) [Mass/Vol]Serum globulin measurement by calculation (mass/volume)[facility] For RehabilitationGlucose [Mass/volume] in Serum or PlasmaOrdered By: Garcia Sanchez on 66-81-5693Lfseqfh [Mass/Vol]Glucose [Mass/volume] in Serum or PsouveYrwj18-534RfiyhyztjChildren'S Hospital For RehabilitationHematocrit Auto (Bld) [Volume fraction]Ordered By: Garcia Sanchez on 81-76-9454Mtzvahbwzn (Bld) [Volume fraction]Hematocrit [Volume Fraction] of Blood by Automated count34.0-46.4FOhioHealth Arthur G.H. Bing, MD, Cancer CenterHemoglobin [Mass/volume] in BloodOrdered By: Garcia Sanchez on 24-16-1906Ijgvwszqza (Bld) [Mass/Vol]Hemoglobin [Mass/volume] in Blood11.8-15.4FOhioHealth Arthur G.H. Bing, MD, Cancer CenterINR in Platelet poor plasma by Coagulation assayOrdered By: Garcia Sanchez on 35-44-5310ZMM Coag (PPP) [Relative time]INR in Platelet poor plasma by Coagulation assayChildren'S Hospital For RehabilitationImmunoglobulins A/G/M, Qn, Ser on 24-86-9638Ebasktthcfynoo A, Serum<9Cvm49-817Mkh [facility] Comment on above:Result Comment: Result confirmed on concentration.Performed By: #### IMM OSCAR ####[facility] ,Immunoglobulin G895 mg/iCTadojc536-1705 The [facility]achian Physician GroupComment on above:Performed By: #### IMM OSCAR ####[facility] ,Immunoglobulin M, Serum<9Ssw50-077Azy [facility] Physician GroupComment on above:Result Comment: Result confirmed on concentration. Performed at: [facility] Lab[address] [id number] Door Glass Installer: Lang Knight PhD, Phone: [phone] BY:[address]ARPIT [place]FOFL[place]EL[place], [place] [phone] MEDICAL DIRECTORTAVIA SCHMIDT M.D. Performed By: #### IMM OSCAR ####[facility] ,Iron [Mass/volume] in Serum or PlasmaOrdered By: Fabiola Marinelli on 83-24-7310Zybj [Mass/Vol]Iron [Mass/volume] in Serum or Flmite98-216EhlfdxndpChildren'S Hospital For RehabilitationIron [Mass/Vol]102 ug/cMJyymez33-523BcfcgtpleChildren'S Hospital For RehabilitationComment on above:Performed By: #### NERY, SCAN CBC, FE and TIBC, CMP, PT ####[place] [address] [place]#### AFPTM ####[facility] ,Iron and TIBC Profileon 03-15-2025% Iron Morvmbfruv78.0 %Cxgmbw36-06Fef [facility] Physician GroupComment on above:Performed By: #### NERY, SCAN CBC, FE and TIBC, CMP, PT ####[facility] [address] [place] [address] [place]#### AFPTM ####[facility] ,Total Iron Binding Kozvaukq784 ug/dL Pdztuv928-417Umr [facility] HospitalComment on above:Performed By: #### NERY, SCAN CBC, FE and TIBC, CMP, PT ####[place] [address] [place]#### AFPTM ####[facility] ,Leukocytes [#/volume] corrected for nucleated erythrocytes in Blood by Automated coun Ordered By: Garcia Sanchez on 51-90-7327BLY corrected for nucl RBC Auto (Bld) [#/Vol]Leukocytes [#/volume] corrected for nucleated erythrocytes in Blood by Automated counLow3.8-11.6FOhioHealth Arthur G.H. Bing, MD, Cancer CenterLymphocytes Auto (Bld) [#/Vol]Ordered By: Garcia Ly on 04-73-7828Aienquwhyiz (Bld) [#/Vol] Lymphocytes [#/volume] in Blood by Automated countLow1.00-4.8[facility] For RehabilitationLymphocytes/100 WBC Auto (Bld)Ordered By: Garcia Ly on 67-15-9901Lxbbpmwmlud/100 WBC (Bld)Lymphocytes/100 leukocytes in Blood by Automated count.[facility] Hospital For RehabilitationMCH Auto (RBC) [Entitic mass] Ordered By: Garcia Ly on 76-90-4249PRS (RBC) [Entitic mass]MCH [Entitic mass] by Automated count24.7-34.3FOhioHealth Arthur G.H. Bing, MD, Cancer CenterMCHC Auto (RBC) [Mass/Vol]Ordered By: Garcia Ly on 55-72-7439PTQL (RBC) [Mass/Vol]MCHC [Mass/volume] by Automated count32.0-35.0[facility] For RehabilitationMCV Auto (RBC) [Entitic vol]Ordered By: Garcia Ly on 83-37-3025JQI (RBC) [Entitic vol]MCV [Entitic volume] by Automated ssqyq55-303DruzzrxvfChildren'S Hospital For RehabilitationMonocytes Auto (Bld) [#/Vol]Ordered By: Garcia Ly on 03-15-2025 Monocytes (Bld) [#/Vol]Automated blood monocyte count0.0-0.8[facility] For RehabilitationMonocytes/100 WBC Auto (Bld)Ordered By: Garcia Ly on 03-15-2025 Monocytes/100 WBC (Bld)Automated monocyte %.[facility] Neutrophils Auto (Bld) [#/Vol]Ordered By: Garcia Ly on 02-83-4220Pkwxrtnpfgj (Bld) [#/Vol]Neutrophils [#/volume] in Blood by Automated countLow1.8-7.7 [facility] For RehabilitationNeutrophils/100 WBC Auto (Bld)Ordered By: Garcia Ly on 46-65-9347Rmolumiewgc/100 WBC (Bld)Automated neutrophil %. [facility] For RehabilitationNo Panel InformationOrdered By: Garcia Ly on 03-15-2025> 60.0 mL/MinChildren'S Hospital For Rehabilitation55.86[facility] For RehabilitationNucleated erythrocytes [Presence] in Blood by Automated count Ordered By: Garcia Sanchez on 49-95-6152Yrngowdtl RBC Auto Ql (Bld)Nucleated erythrocytes [Presence] in Blood by Automated count0-0.5FOhioHealth Arthur G.H. Bing, MD, Cancer CenterPlatelet adequacy [Presence] in Blood by Light microscopyOrdered By: Garcia Sanchez on 17-77-8906Wujtfjleu LM Ql (Bld)Platelet adequacy [Presence] in Blood by Light microscopyLowNormWood County HospitalPlatelet mean volume Auto (Bld) [Entitic vol]Ordered By: Garcia Sanchez on 03-15-2025 Platelet mean volume (Bld) [Entitic vol]Platelet mean volume [Entitic volume] in Blood by Automated count6.3-10.7FOhioHealth Arthur G.H. Bing, MD, Cancer CenterPlatelet morphology finding [Identifier] in BloodOrdered By: Garcia Sanchez on 03-15-2025 Platelet morphology finding Nom (Bld)Platelet morphology finding [Identifier] in BloodNormWood County HospitalPlatelets Auto (Bld) [#/Vol]Ordered By: Garcia Sanchez on 70-27-8242Jfwusmpyh (Bld) [#/Vol]Platelets [#/volume] in Blood by Automated lrlvsSyi150-663YzhblwadiChildren'S Hospital For RehabilitationPotassium [Moles/volume] in Serum or PlasmaOrdered By: Garcia Sanchez on 20-44-5003Dvwqpeupm [Moles/Vol]Potassium [Moles/volume] in Serum or Plasma3.5-5.1FOhioHealth Arthur G.H. Bing, MD, Cancer CenterProtein [Mass/volume] in Serum or PlasmaOrdered By: Garcia Sanchez on 86-55-6866Wlrfmms [Mass/Vol]Protein [Mass/volume] in Serum or PlasmaLow 6.4-8.9[facility] For RehabilitationProthrombin Time INRon 61-74-2696UYV Coag (PPP) [Relative time]1.2 {INR}NormalThe [facility]achian Physician GroupComment on above:Result Comment: INR Therapeutic [...] with mechanical heart valves: 3 - 4.5PERFORMED BY:[address] [place], [place] [phone] MEDICAL DIRECTORTAVIA HORAN M.D.Performed By: #### NERY, SCAN CBC, FE and TIBC, CMP, PT ####[address]#### AFPTM ####[facility] ,PT Coag (PPP) [Time]14.0 sHigh9.0-12.9The [facility]achian Physician GroupComment on above:Result Comment: A hematocrit value greater than 55% may lead to inaccurate results in coagulation testing. Patients having hematocrit values >55% require a special collection tube for coagulation studies. Please contact the laboratory at [phone] for redraw instructions. Performed By: #### NERY, SCAN CBC, FE and TIBC, CMP, PT ####[address]#### AFPTM ####[facility] ,Prothrombin time (PT)Ordered By: Garcia Sanchez on 05-83-7638ZL Coag (PPP) [Time]Prothrombin time (PT)High9.0-12.9[facility] RBC Auto (Bld) [#/Vol]Ordered By: Garcia Sanchez on 93-23-7253JRT (Bld) [#/Vol] Erythrocytes [#/volume] in Blood by Automated count3.60-5.00Summa Healthcan and CBCon 99-20-8076Nzbrotiti (Bld) [#/Vol]0.0 10*3/uLNormal 0.0-0.2The [facility] Physician GroupComment on above:Result Comment: PERFORMED BY:[address] [place], [place] [phone] MEDICAL JAEL SCHMIDT M.D.Performed By: #### NERY, SCAN CBC, FE and TIBC, CMP, PT ####[address]#### AFPTM ####[facility] ,Basophils/100 WBC (Bld)0.4 %Normal.The [facility]alachian Physician GroupComment on above:Performed By: #### NERY, SCAN CBC, FE and TIBC, CMP, PT ####[address]#### AFPTM ####[facility] , Eosinophils (Bld) [#/Vol]0.3 10*3/uLNormal0.0-0.45The [facility] Comment on above:Performed By: #### NERY, SCAN CBC, FE and TIBC, CMP, PT ####[place] [address] [place]#### AFPTM ####[facility] ,Eosinophils/100 WBC (Bld)11.0 %Normal.The [facility]ach[facility] Physician GroupComment on above:Performed By: #### NERY, SCAN CBC, FE and TIBC, CMP, PT ####[address]#### AFPTM ####[facility] ,Erythrocyte distribution width (RBC) [Ratio]17.9 %High11.9-15.3The [facility] Physician GroupComment on above: Performed By: #### NERY, SCAN CBC, FE and TIBC, CMP, PT ####[place] [address] [place]#### AFPTM ####[facility] ,Hematocrit (Bld) [Volume fraction]36.4 %Qkefnx75.0-46.4The [facility] Physician GroupComment on above:Performed By: #### NERY, SCAN CBC, FE and TIBC, CMP, PT ####[place] [address] [place]#### AFPTM ####[facility] ,Hemoglobin (Bld) [Mass/Vol]12.4 g/uXTwasxl74.8-15.4The [facility] Physician GroupComment on above:Performed By: #### NERY, SCAN CBC, FE and TIBC, CMP, PT ####[place] [address] [place]#### AFPTM ####[facility] , Lymphocytes (Bld) [#/Vol]0.6 10*3/uLLow1.00-4.8The [facility] Comment on above:Performed By: #### NERY, SCAN CBC, FE and TIBC, CMP, PT ####[address]#### AFPTM ####[facility] ,Lymphocytes/100 WBC (Bld)22.0 %Normal.The [facility] Physician GroupComment on above:Performed By: #### NERY, SCAN CBC, FE and TIBC, CMP, PT ####[address]#### AFPTM ####[facility] ,MCH (RBC) [Entitic mass]33.6 pg Tnwxug80.7-34.3The [facility] Physician GroupComment on above:Performed By: #### NERY, SCAN CBC, FE and TIBC, CMP, PT ####[place] [address] [place]#### AFPTM ####[facility] ,MCV (RBC) [Entitic vol]98.8 sTUurmxi85-423Ibe [facility] GroupComment on above: Performed By: #### NERY, SCAN CBC, FE and TIBC, CMP, PT ####[place] [address] [place]#### AFPTM ####[facility] ,Mean Corpuscular HGB Conc34.0 g/fIAstehc51.0-35.0The [facility] Physician GroupComment on above:Performed By: #### NERY, SCAN CBC, FE and TIBC, CMP, PT ####[address]#### AFPTM ####[facility] ,Monocytes (Bld) [#/Vol]0.4 10*3/uLNormal 0.0-0.8The [facility] Physician GroupComment on above:Performed By: #### NERY, SCAN CBC, FE and TIBC, CMP, PT ####[address]#### AFPTM ####[facility] ,Monocytes/100 WBC (Bld)16.6 %Normal.The [facility] Physician GroupComment on above:Performed By: #### NREY, SCAN CBC, FE and TIBC, CMP, PT ####[address]#### AFPTM ####[facility] , Neutrophils (Bld) [#/Vol]1.3 10*3/uLLow1.8-7.7The [facility] Comment on above:Performed By: #### NERY, SCAN CBC, FE and TIBC, CMP, PT ####[place] [address] [place]#### AFPTM ####[facility] ,Neutrophils/100 WBC (Bld)50.0 %Normal.The [facility] Physician GroupComment on above:Performed By: #### NERY, SCAN CBC, FE and TIBC, CMP, PT ####[place] [address] [place]#### AFPTM ####[facility] ,NRBC%0.1 /100{WBC}Normal0-0.5The [facility] Physician GroupComment on above:Performed By: #### NERY, SCAN CBC, FE and TIBC, CMP, PT ####[address]#### AFPTM ####[facility] ,Platelet EstimateDecreasedLow NormalTrinity Community Hospital Physician Magee General HospitalComment on above:Performed By: #### NERY, SCAN CBC, FE and TIBC, CMP, PT ####[address]#### AFPTM ####[facility] ,Platelet mean volume (Bld) [Entitic vol]8.8 fLNormal6.3-10.7The [facility] Comment on above:Performed By: #### NERY, SCAN CBC, FE and TIBC, CMP, PT ####[address]#### AFPTM ####[facility] ,Platelet MorphologyNormalNormalNormalThe [facility] General HospitalComment on above:Result Comment: PERFORMED BY:[address] [place], [place] [phone] MEDICAL DIRECTORMOSRI SCHMIDT M.D.Performed By: #### NERY, SCAN CBC, FE and TIBC, CMP, PT ####[address]#### AFPTM ####[facility] ,Platelets (Bld) [#/Vol]46 10*3/uL Zse754-912Kpv [facility] General HospitalComment on above:Performed By: #### NERY, SCAN CBC, FE and TIBC, CMP, PT ####[address]#### AFPTM ####[facility] ,RBC (Bld) [#/Vol]3.68 10*6/uLNormal3.60-5.00The [facility] Physician GroupComment on above: Performed By: #### NERY, SCAN CBC, FE and TIBC, CMP, PT ####[place] [address]#### AFPTM ####[facility] ,RBC morphology finding Nom (Bld)NormalNormalNormalThe [facility] Physician GroupComment on above:Performed By: #### NERY, SCAN CBC, FE and TIBC, CMP, PT ####[place] [address]#### AFPTM ####[facility] ,WBC (Bld) [#/Vol]2.5 10*3/uLLow3.8-11.6 The [facility] Physician GroupComment on above:Performed By: #### NERY, SCAN CBC, FE and TIBC, CMP, PT ####[place] [address]#### AFPTM ####[facility] ,Serum or plasma albumin/globulin mass ratioOrdered By: Garcia Sanchez on 03-15-2025 Albumin/Globulin [Mass ratio]Serum or plasma albumin/globulin mass ratio Summa Healtherum or plasma spoyw-6-gqjjxmkdsml tumor marker measurement (mass/volume)Ordered By: Garcia Sanchez on 44-48-6792LNZ.tumor marker [Mass/Vol]16.8 ng/mLHigh0.0-9.2FKettering Health Daytonerum or plasma anion gap determinationOrdered By: Garcia Sanchez on 62-80-6974Ivzji gap [Moles/Vol]Serum or plasma anion gap determination6.0-15.0Summa Healtherum or plasma iron binding capacity measurement (mass/volume) Ordered By: Fabiola Marinelli on 91-80-4639Oyth binding capacity [Mass/Vol]Iron binding capacity [Mass/volume] in Serum or Yifekn331-139IjsazpddaChildren'S Hospital For RehabilitationIron binding capacity [Mass/Vol]276 ug/cO585-259DzzoldpnnSumma Healtherum or plasma iron saturation measurement (mass fraction)Ordered By: Fabiola Marinelli on 61-80-3236Xeok saturation [Mass fraction]Iron saturation [Mass Fraction] in Serum or Xgdwrh28-04QohxnobplChildren'S Hospital For RehabilitationIron saturation [Mass fraction]37.0 %20-50Summa Healthodium [Moles/volume] in Serum or PlasmaOrdered By: Garcia Sanchez on 01-48-9738Upibif [Moles/Vol]Sodium [Moles/volume] in Serum or Lbmiyn238-843PgqrbflioChildren'S Hospital For RehabilitationTransferrin [Mass/volume] in Serum or PlasmaOrdered By: Fabiola Marinelli on 07-93-6104Igansykoxup [Mass/Vol]Transferrin [Mass/volume] in Serum or Plasma Qbg975-678LbdcjvqxuChildren'S Hospital For RehabilitationTransferrin [Mass/Vol]197 mg/dLLow 203-362Children[facility] Hospital For RehabilitationComment on above:Performed By: #### NERY, SCAN CBC, FE and TIBC, CMP, PT ####[facility] [address]#### AFPTM ####[facility] ,Urea nitrogen [Mass/volume] in Serum or PlasmaOrdered By: Garcia Sanchez on 16-90-4028Bcio nitrogen [Mass/Vol]Urea nitrogen [Mass/volume] in Serum or Plasma7-25[facility] Hospital For RehabilitationWBC Auto (Bld) [#/Vol]Ordered By: Garcia Sanchez on 73-95-4864SMA (Bld) [#/Vol]Leukocytes [#/volume] in Blood by Automated countLow 3.8-11.6FOhioHealth Arthur G.H. Bing, MD, Cancer CenterNo Panel Informationon 03-14-2025 ACINETOBACTER KUAJIXIZ9KFSB HealthcareACINETOBACTER BAUMANIINot detectedNOMS HealthcareCANDIDA ALBICANS, PARAPSILOSIS, CFPSJTGPAY9HYPO HealthcareCANDIDA ALBICANS, PARAPSILOSIS, TROPICALISNot detectedNOMS HealthcareCANDIDA GLABRATA0 NOMS HealthcareCANDIDA GLABRATANot detectedNOMS HealthcareCANDIDA GQWDSA4DYPJ HealthcareCANDIDA KRUSEINot detectedNOMS HealthcareCITROBACTER OSTIORZW8FKRV HealthcareCITROBACTER FREUNDIINot detectedNOMS HealthcareCTX-M1 (15), M2 (2), M9 (9), M8-25 ISQVBG23.682AbnormalNOMS HealthcareCTX-M1 (15), M2 (2), M9 (9), M8- 25 GROUPSDetectedAbnormalNOMS HealthcareDFR (A1, A5), SUL (1,2)25.954Abnormal NOMS HealthcareDFR (A1, A5), SUL (1,2)DetectedAbnormalNOMS Healthcare ENTEROBACTER AEROGENES, PBXSRFN0UZOI HealthcareENTEROBACTER AEROGENES, CLOACAE Not detectedNOMS HealthcareENTEROCOCCUS FAECALIS, JEENWDZ9QMOF Healthcare ENTEROCOCCUS FAECALIS, FAECIUMNot detectedNOMS HealthcareESCHERICHIA HDCS4WLWK HealthcareESCHERICHIA COLINot detectedNOMS HealthcareInterpretation and review of laboratory resultsAbnormalNOMS HealthcareKLEBSIELLA PNEUMONIAE, WHHAGBU71.511 AbnormalNOMS HealthcareKLEBSIELLA PNEUMONIAE, OXYTOCADetectedAbnormalNOMS HealthcareMORGANELLA QMRQMQBI5WKVP HealthcareMORGANELLA MORGANIINot detectedNOMS HealthcarePROTEUS MIRABILIS, UPDTCMCM4IWEF HealthcarePROTEUS MIRABILIS, VULGARISNot detectedNOMS HealthcarePSEUDOMONAS ELEQTJZESQ7CUAG Healthcare PSEUDOMONAS AERUGINOSANot detectedNOMS HealthcareQNR A1, A2, B219.752Abnormal NOMS HealthcareQNR A1, A2, U1ZtecjkrpPjfjwznqUIIJ HealthcareSERRATIA MARCESCENS0 NOMS HealthcareSERRATIA MARCESCENSNot detectedNOMS HealthcareSHV, [facility] GROUPS 20.799AbnormalNOMS HealthcareSHV, [facility] GROUPSDetectedAbnormalNOMS Healthcare STAPHYLOCOCCUS DTRANP7VWXY HealthcareSTAPHYLOCOCCUS AUREUSNot detectedNOMS HealthcareSTAPHYLOCOCCUS EPIDERMIDIS, HAEMOLYTICUS, LUGDUNENSIS, SAPROPHYTICUS (XAEBW7OVWZ HealthcareSTAPHYLOCOCCUS EPIDERMIDIS, HAEMOLYTICUS, LUGDUNENSIS, SAPROPHYTICUS (URINANot detectedNOMS HealthcareSTREPTOCOCCUS AGALACTIAE (GROUP B STREP)0NOMS HealthcareSTREPTOCOCCUS AGALACTIAE (GROUP B STREP)Not detectedNOMS HealthcareSTREPTOCOCCUS PYOGENES (GROUP A STREP)0NOMS HealthcareSTREPTOCOCCUS PYOGENES (GROUP A STREP)Not detectedNOMS HealthcareNOMS HealthcareLaboratory - Chemistry and Chemistry - challengeon 34-14-8090Wsrcavgda Ql (U)NegativeNegative NOMS HealthcareGlucose [Mass/Vol]NegativeNegativeNOMS HealthcareKetones Ql (U) NegativeNegativeNOMS HealthcarepH (U)6 [pH]5.0 - 6.0NOMS HealthcareSpecific gravity (U) [Rel density]1.0151.001 - 1.035NOMS HealthcareUrobilinogen (U) [Mass/Vol]0.2 mg/dL0.2 - 1.0NOAR HealthcareLaboratory - Hematology and Cell countson 50-17-6131Zcckrkbwcd Ql (U)3+NegativeNOAR HealthcareLaboratory - Urinalysison 76-39-5306Fbvwign Ql (U)NegativeNegativeNOMS HealthcareProtein Ql (U)traceNegativeNOAR HealthcareNo Panel Informationon 21-55-4119Uclzxtdziekuuq and review of laboratory resultsAbnormalNOAR HealthcareLEUKOCYTES3+NegativeNOMS HealthcareNOAR HealthcareComprehensive Metabolic Panelon 72-71-1878Ysadjog [Mass/Vol]3.7 g/dLNormal3.5-5.7The [facility] Physician GroupComment on above: Performed By: #### CMP ####[place] [address] USAAlbumin/Globulin [Mass ratio]1.9 {ratio}NormalThe [facility]ian Physician GroupComment on above:Performed By: #### CMP ####[address] [address] USAALP [Catalytic activity/Vol]134 U/AHoer99-211Xvo [facility] Physician GroupComment on above: Performed By: #### CMP ####[address] [address] USAALT [Catalytic activity/Vol]33 U/LNormal7-52The [facility]ian Physician GroupComment on above:Performed By: #### CMP ####[address] [address] USAAnion gap [Moles/Vol] 8.9 mmol/LNormal6.0-15.0The [facility]ian Physician GroupComment on above:Performed By: #### CMP ####[address] [address] USAAST [Catalytic activity/Vol]47 U/CLgih84-88Wmj [facility] Physician GroupComment on above:Performed By: #### CMP ####[address] [place] [address] USABilirubin [Mass/Vol]1.0 mg/dLNormal 0.3-1.0The [facility]alachian Physician GroupComment on above:Performed By: #### CMP ####[address] [address] USACalcium [Mass/Vol]8.7 mg/dLNormal8.6-10.3The [facility] Physician GroupComment on above: Performed By: #### CMP ####[address] [address] USAChloride [Moles/Vol]103 mmol/OIotead31-225Qwj [facility] Physician GroupComment on above:Performed By: #### CMP ####[address] [place] [address] USACO2 [Moles/Vol]28.3 mmol/YKcsnvf76.0-31.0The [facility] Physician GroupComment on above:Performed By: #### CMP ####[address] [address] USACreatinine [Mass/Vol]0.89 mg/dLNormal0.60-1.20The [facility] Comment on above:Performed By: #### CMP ####[address] [place] [address] USACreatinine Clr Calc Ggdjxtcv33.03NormalThSt. Luke's [facility] Center Physician GroupComment on above:Result Comment: PERFORMED BY:[place] [address] [place], [place] [phone] MEDICAL DIRECTORTAVIA SCHMIDT M.D.Performed By: #### CMP ####[address] [place] [address] USAGFR/1.73 sq M.predicted MDRD (S/P/Bld) [Vol rate/Area]mL/min/{1.73_m2}NormalThe [facility] Physician GroupComment on above:Performed By: #### CMP ####[place] [address] USAGlobulin (S) [Mass/Vol]2.0 g/dLNormalThSt. Luke's [facility] Physician GroupComment on above:Performed By: #### CMP ####[place] [address] USAGlucose [Mass/Vol]151 mg/uKJdee22-072Jqk [facility] Physician GroupComment on above: Result Comment: Random Glucose Reference Range is dependent on time and content of last meal. Glucose of more than 200 mg/dL in a nonstressed, ambulatory subject supports the diagnosis of Diabetes Mellitus. ADA recommended reference rangePerformed By: #### CMP ####[place] [address] USAPotassium [Moles/Vol]4.2 mmol/LNormal3.5-5.1The [facility] Physician GroupComment on above:Performed By: #### CMP ####[place] [address] USAProtein [Mass/Vol]5.7 g/dLLow6.4-8.9The [facility] Physician GroupComment on above:Performed By: #### CMP ####[place] [address] [place] Sodium [Moles/Vol]136 mmol/DFfbnor921-051Qbz [facility] Physician GroupComment on above:Performed By: #### CMP ####[place] [id number] USAUrea nitrogen [Mass/Vol]19 mg/dLNormal7-25The [facility]ian Physician GroupComment on above:Performed By: #### CMP ####[place] [address] USAComprehensive metabolic panelon 13-63-8698Prcmgaz [Mass/Vol]3.7 g/dL3.5 - 5.7 g/dLNOMS HealthcareAlbumin/Globulin [Mass ratio]1.9 {ratio}[facility] HealthcareALP [Catalytic activity/Vol]134 U/LHigh34 - 104 U/LNOMS HealthcareALT [Catalytic activity/Vol] 33 U/L7 - 52 U/LNOMS HealthcareAnion gap [Moles/Vol]8.9 mmol/L6.0 - 15.0 meq/L [facility] HealthcareAST [Catalytic activity/Vol]47 U/LHigh13 - 39 U/LNOMS Healthcare Bilirubin [Mass/Vol]1 mg/dL0.3 - 1.0 mg/dLNOAR HealthcareCalcium [Mass/Vol]8.7 mg/dL8.6 - 10.3 mg/dLNOAR HealthcareChloride [Moles/Vol]103 mmol/L98 - 107 mmol/LNOMS HealthcareCO2 [Moles/Vol]28.3 mmol/L21.0 - 31.0 mmol/LNOMS Healthcare Creatinine (U) [Mass/Vol]0.89 mg/dL0.60 - 1.20 mg/dLNOOzarks Medical CenterCREATININE CLR CALC ETOUYKOD22.03NOAR HealthcareESTIMATED GFRmL/MinNOAR HealthcareGlobulin (S) [Mass/Vol]2 g/dLNOAR HealthcareGlucose [Mass/Vol]151 mg/fAWjnm89 - 100 mg/dL [facility] St[facility] LouisComment on above:Random Glucose Reference Range is dependent on time and content of last meal. Glucose of more than 200 mg/dL in a nonstressed, ambulatory subject supports the diagnosis of Diabetes Mellitus. ADA recommended reference range Interpretation and review of laboratory resultsAbnormalNOAR HealthcarePotassium [Moles/Vol]4.2 mmol/L3.5 - 5.1 mmol/LNOMS HealthcareProtein [Mass/Vol]5.7 g/dL Low6.4 - 8.9 g/dLNOAR HealthcareSodium [Moles/Vol]136 mmol/L136 - 145 mmol/LNOMS HealthcareUrea nitrogen [Mass/Vol]19 mg/dL7 - 25 mg/dLCox North HealthcareScan and CBCon 93-37-1986Hqusbdssi (Bld) [#/Vol]0.0 10*3/uLNormal 0.0-0.2[facility] Physician GroupComment on above:Performed By: #### SCAN CBC ####[address] [address] [place] Basophils/100 WBC (Bld)0.4 %Normal.The [facility] Physician GroupComment on above:Performed By: #### SCAN CBC ####[address] [address] USAEosinophils (Bld) [#/Vol]0.0 10*3/uLNormal0.0-0.45 The [facility] Physician GroupComment on above:Performed By: #### SCAN CBC ####[place] [id number] [place] Eosinophils/100 WBC (Bld)0.2 %Normal.The [facility] Physician GroupComment on above:Performed By: #### SCAN CBC ####[place] [address] USAErythrocyte distribution width (RBC) [Ratio]19.7 % High11.9-15.3The [facility] Physician GroupComment on above:Performed By: #### SCAN CBC ####[place] [address] USAHematocrit (Bld) [Volume fraction]36.4 %Fzbuma17.0-46.4The [facility] Physician GroupComment on above:Performed By: #### SCAN CBC ####[place] [address] USAHemoglobin (Bld) [Mass/Vol]12.2 g/dMCgniwf73.8-15.4The [facility] Physician GroupComment on above: Performed By: #### SCAN CBC ####[place] [id number] USALymphocytes (Bld) [#/Vol]0.4 10*3/uLLow1.00-4.8The [facility] Physician GroupComment on above:Performed By: #### SCAN CBC ####[place] [address] [place] Lymphocytes/100 WBC (Bld)17.3 %Normal.The [facility] Physician GroupComment on above:Performed By: #### SCAN CBC ####[address] [address] [facility] CENTERBMCH (RBC) [Entitic mass]33.3 ofAwppcu10.7-34.3The [facility] Physician GroupComment on above:Performed By: #### SCAN CBC ####[address] [address] [facility] CENTERBMCV (RBC) [Entitic vol]98.7 yKIiaejq08-669Qtf [facility] Physician GroupComment on above:Performed By: #### SCAN CBC ####[address] [address] USAMean Corpuscular HGB Conc33.7 g/qOBhsvxq40.0-35.0The [facility] Physician GroupComment on above:Performed By: #### SCAN CBC ####[place] [id number] [place] Monocytes (Bld) [#/Vol]0.4 10*3/uLNormal0.0-0.8The [facility] Comment on above:Performed By: #### SCAN CBC ####[place] [id number] USAMonocytes/100 WBC (Bld)18.1 %Normal. The [facility] Physician GroupComment on above:Performed By: #### SCAN CBC ####[place] [address] [place] Neutrophils (Bld) [#/Vol]1.6 10*3/uLLow1.8-7.7The [facility] Comment on above:Performed By: #### SCAN CBC ####[address] [address] USANeutrophils/100 WBC (Bld)64.0 %Normal. The [facility] Physician GroupComment on above:Performed By: #### SCAN CBC ####[place] [address] USANRBC% 0.1 /100{WBC}Normal0-0.5The [facility] Physician GroupComment on above:Performed By: #### SCAN CBC ####[address] [address] USAPlatelet EstimateDecreasedNormalNormShorePoint Health Punta Gord[place] Physician [facility] Comment on above:Performed By: #### SCAN CBC ####[address] [address] USAPlatelet mean volume (Bld) [Entitic vol]8.0 fLNormal6.3-10.7The [facility] Physician GroupComment on above:Performed By: #### SCAN CBC ####[address] [address] USAPlatelet MorphologyNormalNormalNormShorePoint Health Punta Gord[facility] Physician Group Comment on above:Result Comment: PERFORMED BY:[address] [place], [place] [phone] MEDICAL DIRECTORTAVIA SCHMIDT M.D.Performed By: #### SCAN CBC ####[address] [address] USAPlatelets (Bld) [#/Vol]51 10*3/kMHci168-621Ahb [facility] Physician GroupComment on above: Performed By: #### SCAN CBC ####[address] [address] USARBC (Bld) [#/Vol]3.68 10*6/uLNormal3.60-5.00The [facility] Physician GroupComment on above:Performed By: #### SCAN CBC ####[address] [address] USARBC morphology finding Nom (Bld)NormalNormalNormShorePoint Health Punta G[facility] Physician [facility] Comment on above:Performed By: #### SCAN CBC ####[address] [address] USAWBC (Bld) [#/Vol]2.4 10*3/uLLow 3.8-11.6The [facility] Physician GroupComment on above:Performed By: #### SCAN CBC ####[place] [id number] [facility] CENTERB Anisocytosis LM Ql (Bld)Ordered By: Fabiola Marinelli on 91-11-4752Cjzejraigfdb Ql (Bld) Anisocytosis [Presence] in Blood by Light microscopyChildren'S Hospital For RehabilitationBasophils/100 WBC Manual cnt (Bld)Ordered By: Fabiola Marinelli on 02-15-2025 Basophils/100 WBC (Bld)Basophils/100 leukocytes in Blood by Manual count0-2 [facility] For RehabilitationComprehensive Metabolic Panelon 02-15-2025 Albumin [Mass/Vol]3.5 g/dLNormal3.5-5.7The [facility] Physician GroupComment on above:Performed By: #### CMP, DIFF CBC ####[place] [address] USAAlbumin/Globulin [Mass ratio]1.4 {ratio}Normal The [facility] Physician GroupComment on above:Performed By: #### CMP, DIFF CBC ####[place] [address] USAALP [Catalytic activity/Vol]104 U/YZpzrsn63-413Sts [facility] Physician GroupComment on above:Performed By: #### CMP, DIFF CBC ####[place] [id number] USAALT [Catalytic activity/Vol]24 U/LNormal7-52 The [facility] Physician GroupComment on above:Performed By: #### CMP, DIFF CBC ####[place] [address] USAAnion gap [Moles/Vol]7.9 mmol/LNormal6.0-15.0The [facility] Physician GroupComment on above:Performed By: #### CMP, DIFF CBC ####[place] [address] USAAST [Catalytic activity/Vol]38 U/BYfrlve72-72 The [facility] Physician GroupComment on above:Performed By: #### CMP, DIFF CBC ####[place] [address] [place] Bilirubin [Mass/Vol]0.9 mg/dLNormal0.3-1.0The [facility] Physician GroupComment on above:Performed By: #### CMP, DIFF CBC ####[address] [address] USACalcium [Mass/Vol]8.7 mg/dLNormal8.6-10.3The [facility] Physician GroupComment on above:Performed By: #### CMP, DIFF CBC ####[address] [address] [place] Chloride [Moles/Vol]108 mmol/XQfbq11-827Nza [facility] Physician GroupComment on above:Performed By: #### CMP, DIFF CBC ####[place] [address] USACO2 [Moles/Vol]28.3 mmol/HKtzqkg94.0-31.0The [facility] Physician GroupComment on above:Performed By: #### CMP, DIFF CBC ####[address] [address] [place] Creatinine [Mass/Vol]0.92 mg/dLNormal0.60-1.20The [facility] Comment on above:Performed By: #### CMP, DIFF CBC ####[place] [address] USACreatinine Clr Calc Naflgdja80.09 NormalTrinity Community Hospital Physician [facility] HospitalComment on above:Result Comment: PERFORMED BY:[address] [place], [place] [phone] MEDICAL DIRECTORTAVIA SCHMIDT M.D.Performed By: #### CMP, DIFF CBC ####[address] [address] USAGFR/1.73 sq M.predicted MDRD (S/P/Bld) [Vol rate/Area]mL/min/{1.73_m2} NormalTrinity Community Hospital Physician GroupComment on above:Performed By: #### CMP, DIFF CBC ####[address] [address] [place] Globulin (S) [Mass/Vol]2.5 g/dLNormalThe [facility] Physician GroupComment on above:Performed By: #### CMP, DIFF CBC ####[address] [address] USAGlucose [Mass/Vol]111 mg/hDHast23-662Svb [facility] Physician GroupComment on above:Result Comment: Random Glucose Reference Range is dependent on time and content of last meal. Glucose of more than 200 mg/dL in a nonstressed, ambulatory subject supports the diagnosis of Diabetes Mellitus. ADA recommended reference rangePerformed By: #### CMP, DIFF CBC ####[place] [address] [place] Potassium [Moles/Vol]4.2 mmol/LNormal3.5-5.1The [facility] Physician GroupComment on above:Performed By: #### CMP, DIFF CBC ####[place] [address] USAProtein [Mass/Vol]6.0 g/dLLow6.4-8.9 The [facility] Physician GroupComment on above:Performed By: #### CMP, DIFF CBC ####[address] [address] USASodium [Moles/Vol]140 mmol/JQeokwi948-981Mob [facility] Physician GroupComment on above: Performed By: #### CMP, DIFF CBC ####[address] [address] USAUrea nitrogen [Mass/Vol]19 mg/dLNormal7-25The [facility] Physician GroupComment on above:Performed By: #### CMP, DIFF CBC ####[address] [address] [facility] CENTERB Comprehensive metabolic panelon 31-95-1886Zgyamrv [Mass/Vol]3.5 g/dL3.5 - 5.7 g/dLNOMS HealthcareAlbumin/Globulin [Mass ratio]1.4 {ratio}NOMS HealthcareALP [Catalytic activity/Vol]104 U/L34 - 104 U/LNOMS HealthcareALT [Catalytic activity/Vol]24 U/L7 - 52 U/LNOMS HealthcareAnion gap [Moles/Vol]7.9 mmol/L6.0 - 15.0 meq/LNOMS HealthcareAST [Catalytic activity/Vol]38 U/L13 - 39 U/LNOMS HealthcareBilirubin [Mass/Vol]0.9 mg/dL0.3 - 1.0 mg/dLNOMS HealthcareCalcium [Mass/Vol]8.7 mg/dL8.6 - 10.3 mg/dLNOMS HealthcareChloride [Moles/Vol]108 mmol/L High98 - 107 mmol/LNOMS HealthcareCO2 [Moles/Vol]28.3 mmol/L21.0 - 31.0 mmol/L NOMS HealthcareCreatinine (U) [Mass/Vol]0.92 mg/dL0.60 - 1.20 mg/dLNOMS HealthcareCREATININE CLR CALC RRJZTTRB94.09NOAR HealthcareESTIMATED GFRmL/Min NOMS HealthcareGlobulin (S) [Mass/Vol]2.5 g/dLNOAR HealthcareGlucose [Mass/Vol] 111 mg/aZHmsb57 - 100 mg/dLNOAR HealthcareComment on above:Random Glucose Reference Range is dependent on time and content of last meal. Glucose of more than 200 mg/dL in a nonstressed, ambulatory subject supports the diagnosis of Diabetes Mellitus. ADA recommended reference range Interpretation and review of laboratory resultsAbnormalNOMS HealthcarePotassium [Moles/Vol]4.2 mmol/L3.5 - 5.1 mmol/LNOMS HealthcareProtein [Mass/Vol]6 g/dLLow 6.4 - 8.9 g/dLNOAR HealthcareSodium [Moles/Vol]140 mmol/L136 - 145 mmol/LNOMS HealthcareUrea nitrogen [Mass/Vol]19 mg/dL7 - 25 mg/dLNOAR HealthcareNOAR HealthcareDacrocytes [Presence] in Blood by Light microscopyOrdered By: Fabiola Marinelli on 97-68-6767Tgvpsuasrw LM Ql (Bld)Teardrop cell detectionChildren'S Hospital For RehabilitationDacrocytes LM Ql (Bld)SlightChildren'S Hospital For RehabilitationDiff and CBCon 40-79-1578Gsyegrwfnuef Ql (Bld)MarkedSt. Vincent's Medical Center Southside Physician GroupComment on above:Performed By: #### CMP, DIFF CBC ####[facility] [address] [place] [address] USABasophils/100 WBC (Bld)1 %Normal0-2The [facility] Physician GroupComment on above:Performed By: #### CMP, DIFF CBC ####[address] [address] USAEosinophils/100 WBC (Bld)12 %High1-3The [facility] Comment on above:Performed By: #### CMP, DIFF CBC ####[address] [address] USAErythrocyte distribution width (RBC) [Ratio]24.1 %High11.9-15.3The [facility] Physician GroupComment on above: Performed By: #### CMP, DIFF CBC ####[place] [address] USAGiant Platelet Tally2 /100{WBC}NormalThe [facility] Physician GroupComment on above:Performed By: #### CMP, DIFF CBC ####[place] [address] USAHematocrit (Bld) [Volume fraction]35.1 %Xckwjc73.0-46.4The [facility] Physician GroupComment on above:Performed By: #### CMP, DIFF CBC ####[place] [address] USAHemoglobin (Bld) [Mass/Vol]11.7 g/dLLow 11.8-15.4The [facility] Physician GroupComment on above:Performed By: #### CMP, DIFF CBC ####[address] [address] USALymphocytes/100 WBC (Bld)24 %Tzkdru08-83Sbc [facility] Physician GroupComment on above:Performed By: #### CMP, DIFF CBC ####[place] [address] USAMCH (RBC) [Entitic mass]32.5 pgNormal 24.7-34.3The [facility] Physician GroupComment on above:Performed By: #### CMP, DIFF CBC ####[place] [address] USAMCV (RBC) [Entitic vol]97.7 nVWuigby45-533Egz [facility] Comment on above:Performed By: #### CMP, DIFF CBC ####[address] [address] USAMean Corpuscular HGB Conc33.3 g/dL Kgoiml08.0-35.0The [facility] Physician GroupComment on above:Performed By: #### CMP, DIFF CBC ####[address] [address] USAMicrocytosisSlightNoCritical access hospital Physician [facility] HospitalComment on above: Performed By: #### CMP, DIFF CBC ####[place] [address] USAMonocytes/100 WBC (Bld)12 %High2-11The [facility] HospitalComment on above:Performed By: #### CMP, DIFF CBC ####[address] [address] USAOvalocytesSlight NormalThe [facility] Physician [facility] HospitalComment on above:Performed By: #### CMP, DIFF CBC ####[address] [address] [place] Platelet EstimateDecreasedNormTallahassee Memorial HealthCare Physician [facility] HospitalComment on above:Performed By: #### CMP, DIFF CBC ####[address] [address] USAPlatelet mean volume (Bld) [Entitic vol]8.5 fL Normal6.3-10.7The [facility] HospitalComment on above:Performed By: #### CMP, DIFF CBC ####[address] [address] USAPlatelet MorphologyNormalNormalNoCritical access hospital Physician [facility] Comment on above:Result Comment: PERFORMED BY:[address] [place], [place] [phone] MEDICAL DIRECTORTAVIA SCHMIDT M.D.Performed By: #### CMP, DIFF CBC ####[address] [place] [address] [place] Platelets (Bld) [#/Vol]45 10*3/tPRpu676-089Igp [facility] Physician GroupComment on above:Performed By: #### CMP, DIFF CBC ####[place] [address] USAPoikilocytosisSAtrium Health Union West Physician GroupComment on above:Performed By: #### CMP, DIFF CBC ####[place] [address] USARBC (Bld) [#/Vol]3.59 10*6/uLLow3.60-5.00The [facility] Physician GroupComment on above:Performed By: #### CMP, DIFF CBC ####[place] [address] USAReactive Lymphocytes1 %Normal0-12The [facility] Comment on above:Performed By: #### CMP, DIFF CBC ####[place] [address] USASegmented neutrophils/100 WBC (Bld)51 %Rlhxyy23-45Nka [facility] Physician GroupComment on above:Performed By: #### CMP, DIFF CBC ####[place] [address] USATear Drop CellsSAtrium Health Union West Physician GroupComment on above:Performed By: #### CMP, DIFF CBC ####[place] [address] USAWBC (Bld) [#/Vol]1.9 10*3/uLLow3.8-11.6The [facility] Physician GroupComment on above:Performed By: #### CMP, DIFF CBC ####[place] [address] [place] Eosinophils/100 WBC Manual cnt (Bld)Ordered By: Fabiola Marinelli on 02-15-2025 Eosinophils/100 WBC (Bld)Eosinophils/100 leukocytes in Blood by Manual countHigh 1-3FOhioHealth Arthur G.H. Bing, MD, Cancer CenterGiant platelets/100 leukocytes [Ratio] in Blood by Manual countOrdered By: Fabiola Marinelli on 83-40-9719Jqlon platelets/100 WBC Manual cnt (Bld) [Ratio]Giant platelets/100 leukocytes [Ratio] in Blood by Manual countChildren'S Hospital For RehabilitationLymphocytes/100 WBC Manual cnt (Bld)Ordered By: Fabiola Marinelli on 34-93-4236Obiwxbrnlgl/100 WBC (Bld)Lymphocytes/100 leukocytes in Blood by Manual fjtya46-32OsyjfdqeaChildren'S Hospital For Rehabilitation Microcytes LM Ql (Bld)Ordered By: Fabiola Marinelli on 94-43-3417Pffpsthrwd Ql (Bld) Microcytes [Presence] in Blood by Light microscopyChildren'S Hospital For RehabilitationMicrocytes Ql (Bld)SlightChildren'S Hospital For RehabilitationMonocytes/100 WBC Manual cnt (Bld)Ordered By: Fabiola Marinelli on 11-33-7916Tykuvaftf/100 WBC (Bld) Monocytes/100 leukocytes in Blood by Manual countHigh2-11Children'S Hospital For RehabilitationOvalocytes [Presence] in Blood by Light microscopyOrdered By: Fabiola Marinelli on 40-37-0349Aqaotjwehx LM Ql (Bld)Ovalocyte detectionChildren'S Hospital For RehabilitationPoikilocytosis [Presence] in Blood by Light microscopyOrdered By: Fabiola Marinelli on 43-70-6049Oquzyoljziyial LM Ql (Bld)Poikilocytosis [Presence] in Blood by Light microscopySumma Healthegmented neutrophils/100 WBC Manual cnt (Bld)Ordered By: Fabiola Marinelli on 75-09-2335Ncfbsalii neutrophils/100 WBC (Bld)Manual blood segmented neutrophils/100 quhzbmgcsw01-00 [facility] For RehabilitationVariant lymphocytes/100 WBC Manual cnt (Bld) Ordered By: Fabiola Marinelli on 05-56-1923Ndowzki lymphocytes/100 WBC (Bld)Variant lymphocytes/100 leukocytes in Blood by Manual count0-12[facility] RehabilitationVariant lymphocytes/100 WBC (Bld)1 %0-12[facility] Hospital For RehabilitationAnisocytosis LM Ql (Bld)Ordered By: Fabiola Marinelli on 93-34-0171Vwsroosddptx Ql (Bld)Anisocytosis [Presence] in Blood by Light microscopyChildren'S Hospital For RehabilitationBasophils Auto (Bld) [#/Vol]Ordered By: Fabiola Marinelli on 01-30-2025 Basophils (Bld) [#/Vol]Automated basophil count0.0-0.2FOhioHealth Arthur G.H. Bing, MD, Cancer CenterBasophils/100 WBC Auto (Bld)Ordered By: Fabiola Marinelli on 01-30-2025 Basophils/100 WBC (Bld)Automated basophil %.[facility] Creatinineon 05-50-2959Wklbykryki [Mass/Vol]0.84 mg/dLNormal0.60-1.20The [facility] Physician GroupComment on above:Performed By: #### FE and TIBC, SCAN CBC, NERY, CREAT ####[facility] [address] [place] [address] USACreatinine Clr Calc Ormllqgf76.50NormalThe [facility] Comment on above:Performed By: #### FE and TIBC, SCAN CBC, NERY, CREAT ####[facility] [address] [place] [address] [place] GFR/1.73 sq M.predicted MDRD (S/P/Bld) [Vol rate/Area]mL/min/{1.73_m2}NormalThe [facility] Physician GroupComment on above:Performed By: #### FE and TIBC, SCAN CBC, NERY, CREAT ####[facility] [address] [place] [address] USACreatinine [Mass/volume] in Serum or PlasmaOrdered By: Fabiola Marinelli on 42-99-9863Kvedlmykpi [Mass/Vol]Creatinine [Mass/volume] in Serum or Plasma 0.60-1.20[facility] Hospital For RehabilitationEosinophils Auto (Bld) [#/Vol]Ordered By: Fabiola Marinelli on 24-95-2154Vlxwequidfy (Bld) [#/Vol]Automated eosinophil count 0.0-0.45[facility] Hospital For RehabilitationEosinophils/100 WBC Auto (Bld)Ordered By: Fabiola Marinelli on 44-13-4173Ftsxilnbkce/100 WBC (Bld)Automated eosinophil %. [facility] Hospital For RehabilitationErythrocyte distribution width Auto (RBC) [Ratio]Ordered By: Fabiola Marinelli on 32-04-2497Xezgivbtiqy distribution width (RBC) [Ratio]Erythrocyte distribution width [Ratio] by Automated bzsdvLvcf58.9-15.3 [facility] For RehabilitationErythrocyte morphology finding [Identifier] in BloodOrdered By: Fabiola Marinelli on 79-02-1917ROK morphology finding Nom (Bld)RBC morphologyChildren'S Hospital For RehabilitationFerritinon 49-98-3699Idlxknvh [Mass/Vol]674.0 ng/jVNlfc44.0-306.8The [facility] Physician GroupComment on above:Result Comment: PERFORMED BY:[facility] [place], [place] [phone] MEDICAL DIRECTORTAVIA HORAN M.D.Performed By: #### FE and TIBC, SCAN CBC, NERY, CREAT ####[facility] [place] [address] USAFerritin [Mass/volume] in Serum or PlasmaOrdered By: Fabiola Marinelli on 27-98-0439Iagwfoko [Mass/Vol]Ferritin [Mass/volume] in Serum or RvvfvtTevk65.0-306.8[facility] Hospital For RehabilitationHematocrit Auto (Bld) [Volume fraction]Ordered By: Fabiola Marinelli on 23-13-2736Hwqhgtifsp (Bld) [Volume fraction]Hematocrit [Volume Fraction] of Blood by Automated count34.0-46.4FOhioHealth Arthur G.H. Bing, MD, Cancer Center Hemoglobin [Mass/volume] in BloodOrdered By: Fabiola Marinelli on 23-20-0103Lrghvlgtfx (Bld) [Mass/Vol]Hemoglobin [Mass/volume] in HvimmOvg86.8-15.4FOhioHealth Arthur G.H. Bing, MD, Cancer CenterHypochromia LM Ql (Bld)Ordered By: Fabiola Marinelli on 01-30-2025 Hypochromia Ql (Bld)Hypochromia [Presence] in Blood by Light microscopyChildren'S Hospital For RehabilitationHypochromia Ql (Bld)ModerateChildren'S Hospital For RehabilitationIron [Mass/volume] in Serum or PlasmaOrdered By: Fabiola Marinelli on 01-30-2025 Iron [Mass/Vol]Iron [Mass/volume] in Serum or Rjqllk25-687IuhlebvraChildren'S Hospital For RehabilitationIron and TIBC Profileon 01-30-2025% Iron Biyefgzjrc65.7 %Normal 20-50The [facility] Physician GroupComment on above:Performed By: #### FE and TIBC, SCAN CBC, NERY, CREAT ####[facility] [place] [address] USAIron [Mass/Vol]94 ug/oBCvrozq44-679Mbn [facility] Physician GroupComment on above:Performed By: #### FE and TIBC, SCAN CBC, NERY, CREAT ####[place] [address] [address] Total Iron Binding Oigxsvzv013 ug/dRPcldks551-946Fjf [facility] Phys[facility] Comment on above:Performed By: #### FE and TIBC, SCAN CBC, NERY, CREAT ####[facility] Transferrin [Mass/Vol]199 mg/sWHff454-113Lke [facility] HospitalComment on above:Performed By: #### FE and TIBC, SCAN CBC, NERY, CREAT ####[place] [address] USALeukocytes [#/volume] corrected for nucleated erythrocytes in Blood by Automated counOrdered By: Fabiola Marinelli on 53-32-1080HJU corrected for nucl RBC Auto (Bld) [#/Vol]Leukocytes [#/volume] corrected for nucleated erythrocytes in Blood by Automated counLow 3.8-11.6FOhioHealth Arthur G.H. Bing, MD, Cancer CenterLymphocytes Auto (Bld) [#/Vol]Ordered By: Fabiola Marinelli on 47-28-0437Lqqlnqwfibi (Bld) [#/Vol]Lymphocytes [#/volume] in Blood by Automated countLow1.00-4.8[facility] Lymphocytes/100 WBC Auto (Bld)Ordered By: Fabiola Marinelli on 51-76-9779Xgtbathcnnl/100 WBC (Bld)Lymphocytes/100 leukocytes in Blood by Automated count.[facility] Auto (RBC) [Entitic mass]Ordered By: Fabiola Marinelli on 58-36-8210HZI (RBC) [Entitic mass]MCH [Entitic mass] by Automated count24.7-34.3 [facility] CenterMCHC Auto (RBC) [Mass/Vol]Ordered By: Fabiola Marinelli on 58-28-9020ZMVJ (RBC) [Mass/Vol]MCHC [Mass/volume] by Automated count 32.0-35.0[facility] Hospital For RehabilitationMCV Auto (RBC) [Entitic vol]Ordered By: Fabiola Marinelli on 16-97-9841NJN (RBC) [Entitic vol]MCV [Entitic volume] by Automated ukocm19-446QfvmowbwnChildren'S Hospital For RehabilitationMonocytes Auto (Bld) [#/Vol]Ordered By: Fabiola Marinelli on 26-45-9006Ntivqghvo (Bld) [#/Vol]Automated blood monocyte count0.0-0.8[facility] Hospital For RehabilitationMonocytes/100 WBC Auto (Bld)Ordered By: Fabiola Marinelli on 99-77-4379Ojuwrbhhp/100 WBC (Bld)Automated monocyte %.[facility] Hospital For RehabilitationNeutrophils Auto (Bld) [#/Vol] Ordered By: Fabiola Marinelli on 11-20-1046Ujewmmfdgjb (Bld) [#/Vol]Neutrophils [#/volume] in Blood by Automated countLow1.8-7.7FOhioHealth Arthur G.H. Bing, MD, Cancer CenterNeutrophils/100 WBC Auto (Bld)Ordered By: Fabiola Marinelli on 01-30-2025 Neutrophils/100 WBC (Bld)Automated neutrophil %.[facility] For RehabilitationNo Panel InformationOrdered By: Fabiola Marinelil on 01-30-2025> 60.0 mL/Min [facility]65.50[facility] For RehabilitationNucleated erythrocytes [Presence] in Blood by Automated countOrdered By: Fabiola Marinelli on 61-00-5751Hvoiwkvwb RBC Auto Ql (Bld)Nucleated erythrocytes [Presence] in Blood by Automated count0-0.5FOhioHealth Arthur G.H. Bing, MD, Cancer CenterOvalocytes [Presence] in Blood by Light microscopyOrdered By: Fabiola Marinelli on 79-69-2254Cqcuefafto LM Ql (Bld)Ovalocyte detectionChildren'S Hospital For RehabilitationPlatelet adequacy [Presence] in Blood by Light microscopyOrdered By: Fabiola Marinelli on 01-30-2025 Platelets LM Ql (Bld)Platelet adequacy [Presence] in Blood by Light microscopy NormalChildren'S Hospital For RehabilitationPlatelet mean volume Auto (Bld) [Entitic vol]Ordered By: Fabiola Marinelli on 47-94-3126Fnrgthym mean volume (Bld) [Entitic vol] Platelet mean volume [Entitic volume] in Blood by Automated count6.3-10.7 [facility] Hospital For RehabilitationPlatelet morphology finding [Identifier] in BloodOrdered By: Fabiola Marinelli on 65-21-6926Cjmrjhze morphology finding Nom (Bld) Platelet morphology finding [Identifier] in BloodNormalChildren'S Hospital For RehabilitationPlatelets Auto (Bld) [#/Vol]Ordered By: Fabiola Marinelli on 01-30-2025 Platelets (Bld) [#/Vol]Platelets [#/volume] in Blood by Automated countLow 150-450Children'S Hospital For RehabilitationPoikilocytosis [Presence] in Blood by Light microscopyOrdered By: Fabiola Marinelli on 75-68-8367Rjvhakhmtakymu LM Ql (Bld) Poikilocytosis [Presence] in Blood by Light microscopyChildren'S Hospital For RehabilitationPolychromasia [Presence] in Blood by Light microscopyOrdered By: Fabiola Marinelli on 22-18-4451Ytrisshiznnwg LM Ql (Bld)Polychromasia [Presence] in Blood by Light microscopyChildren'S Hospital For RehabilitationRBC Auto (Bld) [#/Vol]Ordered By: Fabiola Marinelli on 25-89-3769BFW (Bld) [#/Vol]Erythrocytes [#/volume] in Blood by Automated count3.60-5.00Summa Healthcan and CBCon 82-71-6884Kiwdxabhdmnq Ql (Bld)ModerateNormalThe [facility] Comment on above:Performed By: #### FE and TIBC, SCAN CBC, NERY, CREAT ####[facility] [address] [place] [address] [place] Basophils (Bld) [#/Vol]0.0 10*3/uLNormal0.0-0.2The [facility] Comment on above:Performed By: #### FE and TIBC, SCAN CBC, NERY, CREAT ####[facility] [id number] [place] Basophils/100 WBC (Bld)0.4 %Normal.The [facility]ach[facility] Physician GroupComment on above:Performed By: #### FE and TIBC, SCAN CBC, NERY, CREAT ####[place] [address] USAEosinophils (Bld) [#/Vol]0.2 10*3/uLNormal0.0-0.45The [facility] Physician GroupComment on above: Performed By: #### FE and TIBC, SCAN CBC, NERY, CREAT ####[place] [address] USAEosinophils/100 WBC (Bld)9.4 % Normal.The [facility] Physician GroupComment on above:Performed By: #### FE and TIBC, SCAN CBC, NERY, CREAT ####[place] [address] USAErythrocyte distribution width (RBC) [Ratio]26.9 %High 11.9-15.3The [facility] Physician GroupComment on above:Performed By: #### FE and TIBC, SCAN CBC, NERY, CREAT ####[place] [address] USAHematocrit (Bld) [Volume fraction]34.2 %Normal 34.0-46.4The [facility] Physician GroupComment on above:Performed By: #### FE and TIBC, SCAN CBC, NERY, CREAT ####[place] [address] USAHemoglobin (Bld) [Mass/Vol]11.4 g/dLLow11.8-15.4The [facility] Physician GroupComment on above:Performed By: #### FE and TIBC, SCAN CBC, NERY, CREAT ####[place] [address] USAHypochromasiaModerateNormalThe [facility] Physician GroupComment on above:Performed By: #### FE and TIBC, SCAN CBC, NERY, CREAT ####[place] [address] USALymphocytes (Bld) [#/Vol]0.6 10*3/uLLow1.00-4.8The [facility] Physician GroupComment on above: Performed By: #### FE and TIBC, SCAN CBC, NERY, CREAT ####[place] [address] USALymphocytes/100 WBC (Bld)26.0 %Normal.The [facility] Physician GroupComment on above:Performed By: #### FE and TIBC, SCAN CBC, NERY, CREAT ####[address] (RBC) [Entitic mass]31.2 gaWnaoqx39.7-34.3The [facility] Physician GroupComment on above:Performed By: #### FE and TIBC, SCAN CBC, NERY, CREAT ####[address] (RBC) [Entitic vol]93.9 wYTinenu98-801Pbb [facility] Comment on above:Performed By: #### FE and TIBC, SCAN CBC, NERY, CREAT ####[place] [address] USAMean Corpuscular HGB Conc33.3 g/rNCbhgmy60.0-35.0The [facility] Physician GroupComment on above:Performed By: #### FE and TIBC, SCAN CBC, NERY, CREAT ####[place] [address] USAMonocytes (Bld) [#/Vol]0.6 10*3/uLNormal0.0-0.8The [facility] Physician GroupComment on above: Performed By: #### FE and TIBC, SCAN CBC, NERY, CREAT ####[place] [id number] USAMonocytes/100 WBC (Bld)25.8 % Normal.The [facility] Physician GroupComment on above:Performed By: #### FE and TIBC, SCAN CBC, NERY, CREAT ####[address] [place] [address] USANeutrophils (Bld) [#/Vol]0.9 10*3/uLLow1.8-7.7The [facility] Physician GroupComment on above:Performed By: #### FE and TIBC, SCAN CBC, NERY, CREAT ####[address] [address] USANeutrophils/100 WBC (Bld)38.4 %Normal.The [facility] Comment on above:Performed By: #### FE and TIBC, SCAN CBC, NERY, CREAT ####[address] [address] USANRBC% 0.1 /100{WBC}Normal0-0.5The [facility] Physician GroupComment on above:Performed By: #### FE and TIBC, SCAN CBC, NERY, CREAT ####[place] [id number] USAOvalocytesSlightNormShorePoint Health Punta Gorda Physician GroupComment on above:Performed By: #### FE and TIBC, SCAN CBC, NERY, CREAT ####[address] [address] [place] Platelet EstimateDecreasedNormalNormShorePoint Health Punta Gorda Physician GroupComment on above:Performed By: #### FE and TIBC, SCAN CBC, NERY, CREAT ####[address] [address] USAPlatelet mean volume (Bld) [Entitic vol]8.3 fLNormal6.3-10.7The [facility] Physician GroupComment on above:Performed By: #### FE and TIBC, SCAN CBC, NERY, CREAT ####[place] [id number] USAPlatelet Morphology NormalNormTallahassee Memorial HealthCare Physician GroupComment on above:Result Comment: PERFORMED BY:[address] [place], [place] [phone] MEDICAL DIRECTORTAVIA SCHMIDT M.D. Performed By: #### FE and TIBC, SCAN CBC, NERY, CREAT ####[place] [address] USAPlatelets (Bld) [#/Vol]49 10*3/kVXkk504-753Vou [facility] Physician GroupComment on above:Performed By: #### FE and TIBC, SCAN CBC, NERY, CREAT ####[place] [address] USAPoikilocytosisSAtrium Health Union West Physician GroupComment on above:Performed By: #### FE and TIBC, SCAN CBC, NERY, CREAT ####[place] [address] [place] PolychromasiaSAtrium Health Union West Physician GroupComment on above:Performed By: #### FE and TIBC, SCAN CBC, NERY, CREAT ####[place] [address] USARBC (Bld) [#/Vol]3.64 10*6/uLNormal 3.60-5.00The [facility] Physician GroupComment on above:Performed By: #### FE and TIBC, SCAN CBC, NERY, CREAT ####[place] [address] USASchistocytesSAtrium Health Union West Physician Group Comment on above:Performed By: #### FE and TIBC, SCAN CBC, NERY, CREAT ####[place] [address] USAWBC (Bld) [#/Vol]2.4 10*3/uLLow3.8-11.6The [facility] Physician GroupComment on above:Performed By: #### FE and TIBC, SCAN CBC, NERY, CREAT ####[place] [address] USASchistocytes [Presence] in Blood by Light microscopyOrdered By: Fabiola Marinelli on 01-30-2025 Schistocytes LM Ql (Bld)Schistocytes [Presence] in Blood by Light microscopy Summa Healthchistocytes LM Ql (Bld)SlightSumma Healtherum or plasma iron binding capacity measurement (mass/volume)Ordered By: Fabiola Marinelli on 70-29-0270Rtfs binding capacity [Mass/Vol] Iron binding capacity [Mass/volume] in Serum or Zrawve379-496GqferyomsSumma Healtherum or plasma iron saturation measurement (mass fraction)Ordered By: Fabiola Marinelli on 98-30-2534Wvkr saturation [Mass fraction]Iron saturation [Mass Fraction] in Serum or Zmuzwn78-12BhkisrsbkChildren'S Hospital For RehabilitationTransferrin [Mass/volume] in Serum or PlasmaOrdered By: Fabiola Marinelli on 01-37-6128Jqnolntjwfo [Mass/Vol]Transferrin [Mass/volume] in Serum or XzlrleKnh849-605AorfavxvsChildren'S Hospital For RehabilitationWBC Auto (Bld) [#/Vol]Ordered By: Fabiola Marinelli on 01-30-2025 WBC (Bld) [#/Vol]Leukocytes [#/volume] in Blood by Automated countLow3.8-11.6 [facility] Hospital For RehabilitationAlanine aminotransferase [Enzymatic activity/volume] in Serum or PlasmaOrdered By: Fabiola Marinelli on 25-87-0153EIS [Catalytic activity/Vol]Alanine aminotransferase [Enzymatic activity/volume] in Serum or Plasma7-52[facility] Hospital For RehabilitationAlbumin [Mass/volume] in Serum or Plasma by Bromocresol green (BCG) dye binding methoOrdered By: Fabiola Marinelli on 88-30-7957Lppquvy BCG dye [Mass/Vol]Albumin [Mass/volume] in Serum or Plasma by Bromocresol green (BCG) dye binding metho3.5-5.7FOhioHealth Arthur G.H. Bing, MD, Cancer CenterAlkaline phosphatase [Enzymatic activity/volume] in Serum or PlasmaOrdered By: Fabiola Marinelli on 83-56-5754QAZ [Catalytic activity/Vol]Alkaline phosphatase [Enzymatic activity/volume] in Serum or GcdwwjVsat47-861LyrnkakgfChildren'S Hospital For RehabilitationAspartate aminotransferase [Enzymatic activity/volume] in Serum or PlasmaOrdered By: Fabiola Marinelli on 74-13-3400AYS [Catalytic activity/Vol] Aspartate aminotransferase [Enzymatic activity/volume] in Serum or Huvyac39-52 [facility] Hospital For RehabilitationBilirubin.total [Mass/volume] in Serum or PlasmaOrdered By: Fabiola Marinelli on 72-03-2145Cnigsdsyb [Mass/Vol]Bilirubin.total [Mass/volume] in Serum or Plasma0.3-1.0[facility] For RehabilitationCalcium [Mass/volume] in Serum or PlasmaOrdered By: Fabiola Marinelli on 46-72-1602Jhlycvz [Mass/Vol]Calcium [Mass/volume] in Serum or PlasmaLow8.6-10.3FOhioHealth Arthur G.H. Bing, MD, Cancer CenterCarbon dioxide, total [Moles/volume] in Serum or PlasmaOrdered By: Fabiola Marinelli on 66-00-4676IC0 [Moles/Vol]Carbon dioxide, total [Moles/volume] in Serum or Weafif79.0-31.0[facility] For RehabilitationChloride [Moles/volume] in Serum or PlasmaOrdered By: Fabiola Marinelli on 87-61-5340Fftnajtj [Moles/Vol] Chloride [Moles/volume] in Serum or Bksgek09-107XusiozsdlChildren'S Hospital For RehabilitationComprehensive Metabolic Panelon 53-67-0165Vhuoslo [Mass/Vol]3.8 g/dLNormal 3.5-5.7The [facility] Physician GroupComment on above:Performed By: #### CMP ####[place] [address] [place] Albumin/Globulin [Mass ratio]1.7 {ratio}NormalThe [facility] Comment on above:Performed By: #### CMP ####[address] [address] USAALP [Catalytic activity/Vol]112 U/TNrqd52-950 The [facility]achian Physician GroupComment on above:Performed By: #### CMP ####[address] [address] USAALT [Catalytic activity/Vol]16 U/LNormal7-52The [facility]alachian Physician GroupComment on above:Performed By: #### CMP ####[address] [address] USAAnion gap [Moles/Vol]9.2 mmol/LNormal6.0-15.0The [facility]achian Physician GroupComment on above:Performed By: #### CMP ####[address] [address] USAAST [Catalytic activity/Vol]32 U/EImnhlf97-72Lpp [facility] Physician GroupComment on above: Performed By: #### CMP ####[place] [id number] USABilirubin [Mass/Vol]0.9 mg/dLNormal0.3-1.0The [facility]achian Physician GroupComment on above:Performed By: #### CMP ####[place] [address] USACalcium [Mass/Vol]8.0 mg/dLLow8.6-10.3The [facility]achian Physician GroupComment on above:Performed By: #### CMP ####[place] [address] USAChloride [Moles/Vol]105 mmol/LWhdemq40-318Hqp [facility] Comment on above:Performed By: #### CMP ####[place] [address] USACO2 [Moles/Vol]24.4 mmol/SHjmtda90.0-31.0The [facility]ian Physician GroupComment on above:Performed By: #### CMP ####[place] [id number] USACreatinine [Mass/Vol] 1.02 mg/dLNormal0.60-1.20The [facility]ian Physician GroupComment on above:Performed By: #### CMP ####[place] [address] USACreatinine Clr Calc Atdzisgz72.12NormShorePoint Health Punta Gorda Physician [facility] Comment on above:Result Comment: PERFORMED BY:[address] [address] [place], [place] [phone] MEDICAL DIRECTORTAVIA SCHMIDT M.D.Performed By: #### CMP ####[address] [address] USAGFR/1.73 sq M.predicted MDRD (S/P/Bld) [Vol rate/Area]mL/min/{1.73_m2}NormalThe [facility] Comment on above:Performed By: #### CMP ####[place] [address] USAGlobulin (S) [Mass/Vol]2.3 g/dLNormalThSt. Luke's [facility] Physician [facility] HospitalComment on above:Performed By: #### CMP ####[place] [address] USAGlucose [Mass/Vol]186 mg/sAIucp47-603Obn [facility] Physician GroupComment on above:Result Comment: Random Glucose Reference Range is dependent on time and content of last meal. Glucose of more than 200 mg/dL in a nonstressed, ambulatory subject supports the diagnosis of Diabetes Mellitus. ADA recommended reference rangePerformed By: #### CMP ####[place] [address] USAPotassium [Moles/Vol]4.6 mmol/LNormal3.5-5.1The [facility] Comment on above:Performed By: #### CMP ####[place] [address] USAProtein [Mass/Vol]6.1 g/dLLow6.4-8.9The [facility] Physician GroupComment on above:Performed By: #### CMP ####[place] [address] USASodium [Moles/Vol]134 mmol/YJqg763-081Bee [facility] HospitalComment on above:Performed By: #### CMP ####[place] [address] USAUrea nitrogen [Mass/Vol]15 mg/dLNormal7-25The [facility] Comment on above:Performed By: #### CMP ####[place] [address] USAGlobulin Calc (S) [Mass/Vol]Ordered By: Fabiola Marinelli on 55-55-1463Wyzsuifq (S) [Mass/Vol]Serum globulin measurement by calculation (mass/volume)[facility] For RehabilitationGlucose [Mass/volume] in Serum or PlasmaOrdered By: Fabiola Marinelli on 90-83-4461Hkmxyul [Mass/Vol]Glucose [Mass/volume] in Serum or DzcdsnQzjo46-541FnexgbjyjChildren'S Hospital For Rehabilitation Microcytes LM Ql (Bld)Ordered By: Fabiola Marinelli on 88-07-5057Vokxnkrdtj Ql (Bld) Microcytes [Presence] in Blood by Light microscopyChildren'S Hospital For RehabilitationPotassium [Moles/volume] in Serum or PlasmaOrdered By: Fabiola Marinelli on 17-52-2245Bomvngige [Moles/Vol]Potassium [Moles/volume] in Serum or Plasma 3.5-5.1FOhioHealth Arthur G.H. Bing, MD, Cancer CenterProtein [Mass/volume] in Serum or Plasma Ordered By: Fabiola Marinelli on 71-13-1271Pvziacj [Mass/Vol]Protein [Mass/volume] in Serum or PlasmaLow6.4-8.9Summa Healthcan and CBCon 06-58-5356Petibuxesqeg Ql (Bld)SlightNormalThe [facility]alachian Physician GroupComment on above:Performed By: #### SCAN CBC ####[place] [address] USABasophils (Bld) [#/Vol]0.0 10*3/uLNormal 0.0-0.2The [facility]ian Physician GroupComment on above:Performed By: #### SCAN CBC ####[place] [address] [place] Basophils/100 WBC (Bld)0.3 %Normal.The [facility]achian Physician GroupComment on above:Performed By: #### SCAN CBC ####[place] [address] USAEosinophils (Bld) [#/Vol]0.0 10*3/uLNormal0.0-0.45 The [facility]achian Physician GroupComment on above:Performed By: #### SCAN CBC ####[place] [address] [place] Eosinophils/100 WBC (Bld)0.7 %Normal.The [facility]alachian Physician GroupComment on above:Performed By: #### SCAN CBC ####[place] [address] USAErythrocyte distribution width (RBC) [Ratio]25.7 % High11.9-15.3The [facility]alachian Physician GroupComment on above:Performed By: #### SCAN CBC ####[place] [address] USAHematocrit (Bld) [Volume fraction]31.8 %Low34.0-46.4The [facility]achian Physician GroupComment on above:Performed By: #### SCAN CBC ####[place] [address] USAHemoglobin (Bld) [Mass/Vol]10.4 g/dL Low11.8-15.4The [facility]ian Physician GroupComment on above:Performed By: #### SCAN CBC ####[place] [address] USAHypochromasiaSlightNormalThe [facility]achian Physician GroupComment on above: Performed By: #### SCAN CBC ####[place] [address] USALymphocytes (Bld) [#/Vol]0.3 10*3/uLLow1.00-4.8The [facility] Physician GroupComment on above:Performed By: #### SCAN CBC ####[place] [address] [place] Lymphocytes/100 WBC (Bld)13.1 %Normal.The [facility]ian Physician GroupComment on above:Performed By: #### SCAN CBC ####[place] [address] USAMCH (RBC) [Entitic mass]29.4 exTuskbg56.7-34.3The [facility]ian Physician GroupComment on above:Performed By: #### SCAN CBC ####[place] [address] USAMCV (RBC) [Entitic vol]90.3 iEPialky62-911Xmd [facility] Physician GroupComment on above:Performed By: #### SCAN CBC ####[place] [address] USAMean Corpuscular HGB Conc32.6 g/yMMfbmxh73.0-35.0The [facility] Physician GroupComment on above:Performed By: #### SCAN CBC ####[place] [address] [place] MicrocytosisSlightNoCritical access hospital Physician GroupComment on above:Performed By: #### SCAN CBC ####[place] [address] USAMonocytes (Bld) [#/Vol]0.2 10*3/uLNormal0.0-0.8The [facility] Physician GroupComment on above:Performed By: #### SCAN CBC ####[place] [address] USAMonocytes/100 WBC (Bld)7.1 %Normal.The [facility] Physician GroupComment on above:Performed By: #### SCAN CBC ####[place] [address] USANeutrophils (Bld) [#/Vol]2.1 10*3/uLNormal1.8-7.7The [facility] Physician GroupComment on above:Performed By: #### SCAN CBC ####[place] [address] USANeutrophils/100 WBC (Bld)78.8 %Normal.The [facility] Physician GroupComment on above:Performed By: #### SCAN CBC ####[place] [address] USANRBC%0.2 /100{WBC}Normal0-0.5The [facility] Physician GroupComment on above:Performed By: #### SCAN CBC ####[place] [address] USAOvalocytesSAtrium Health Union West Physician Group Comment on above:Performed By: #### SCAN CBC ####[place] [address] USAPlatelet EstimateDecreasedNormalNormal The [facility]ian Physician GroupComment on above:Performed By: #### SCAN CBC ####[address] [address] [place] Platelet mean volume (Bld) [Entitic vol]8.0 fLNormal6.3-10.7The [facility] Physician GroupComment on above:Performed By: #### SCAN CBC ####[address] [address] USAPlatelet Morphology NormalNormalNoCritical access hospital Physician GroupComment on above:Result Comment: PERFORMED BY:[address]RobertoROMA, [place] [phone] MEDICAL DIRECTORTAVIA SCHMIDT M.D. Performed By: #### SCAN CBC ####[address] [address] USAPlatelets (Bld) [#/Vol]59 10*3/kBZha137-148Pny [facility] Physician GroupComment on above:Performed By: #### SCAN CBC ####[address] [address] [place] PoikilocytosisSlightNoCritical access hospital Physician GroupComment on above: Performed By: #### SCAN CBC ####[address] [address] USAPolychromasiaSlightSt. Vincent's Medical Center Southside Physician GroupComment on above:Performed By: #### SCAN CBC ####[address] [address] USARBC (Bld) [#/Vol]3.52 10*6/uLLow 3.60-5.00The [facility] Physician GroupComment on above:Performed By: #### SCAN CBC ####[address] [address] USAWBC (Bld) [#/Vol]2.6 10*3/uLLow3.8-11.6The [facility] Physician GroupComment on above:Performed By: #### SCAN CBC ####[address] [address] USASerum or plasma albumin/globulin mass ratioOrdered By: Fabiola Marinelli on 13-91-8273Wctlqnn/Globulin [Mass ratio]Serum or plasma albumin/globulin mass ratioSumma Healtherum or plasma anion gap determinationOrdered By: Fabiola Marinelli on 09-46-5825Kgovj gap [Moles/Vol] Serum or plasma anion gap determination6.0-15.0[facility] Sodium [Moles/volume] in Serum or PlasmaOrdered By: Fabiola Marinelli on 01-18-2025 Sodium [Moles/Vol]Sodium [Moles/volume] in Serum or SeufpzNfo932-928YcmxftgwgChildren'S Hospital For RehabilitationUrea nitrogen [Mass/volume] in Serum or PlasmaOrdered By: Fabiola Marinelli on 31-78-4966Rqjl nitrogen [Mass/Vol]Urea nitrogen [Mass/volume] in Serum or Plasma7-25[facility] For RehabilitationCBC panel Auto (Bld)on 89-64-8613Jmpnurwehnb distribution width (RBC) [Ratio]18.7 %High11.5 - 14.5 % [facility] HospitalHematocrit (Bld) [Volume fraction]28 %Low36.0 - 46.0 %[facility] HospitalHemoglobin (Bld) [Mass/Vol]8.8 g/dLLow 12.0 - 16.0 g/dLChillicothe HospitalInterpretation and review of laboratory resultsAbnormalUCentervilleH (RBC) [Entitic mass]27.3 pg26.0 - 34.0 pgWexner Medical CenterHC (RBC) [Mass/Vol] 31.4 g/dLLow32.0 - 36.0 g/dLWexner Medical CenterV (RBC) [Entitic vol]87 fL80 - 100 fLUniTriHealth McCullough-Hyde Memorial HospitalNucleated RBC/100 WBC (Bld) [Ratio]0 %[facility] HospitalPlatelets (Bld) [#/Vol]51 10*3/uLLow [facility] HospitalRB (Bld) [#/Vol]3.22 10*6/[facility] HospitalWBC (Bld) [#/Vol]1.7 10*3/[facility] HospitalUnTrinity Health System Twin City Medical CenterErythrocyte distribution width (RBC) [Ratio]18.7 %High11.5-14.5[facility] Ferry HospitalComment on above:Performed By: #### 84533-8 #### SAMUEL RUIZ ([id number]) [facility] ([facility] [place]) [address] [place], [place] [address]Wdzewnjbgi (Bld) [Volume fraction]28.0 %Low36.0-46.0UnKettering Health MiamisburgComment on above:Performed By: #### 16493-7 #### SAMUEL RUIZ ([id number]) [facility] ([facility] [place]) [address] [place], [place] [address]Abxtrdiiac (Bld) [Mass/Vol]8.8 g/dLLow12.0-16.0UnKettering Health MiamisburgComment on above:Performed By: #### 72109-2 #### SAMUEL RUIZ ([id number]) [facility] ([facility] [place]) [address] [place], [place] [address]UFO (RBC) [Entitic mass]27.3 nvIgvfty94.0-34.0UnKettering Health MiamisburgComment on above:Performed By: #### 28591-1 #### SAMUEL RUIZ ([id number]) [facility] ([facility] [place]) [address] [place], [place] [address]YRYA (RBC) [Mass/Vol]31.4 g/dLLow32.0-36.0UnKettering Health MiamisburgComment on above:Performed By: #### 16132-0 #### SAMUEL RUIZ ([id number]) [facility] ([facility] [place]) [address] [place], [place] [address]RHO (RBC) [Entitic vol]87 aMQutrot97-698FlctiorqtkKettering Health MiamisburgComment on above:Performed By: #### 88890-4 #### SAMUEL RUIZ ([id number]) [facility] ([facility] [place]) [address] [place], [place] [address]Xrfrqnjir RBC/100 WBC (Bld) [Ratio]0.0 /100 WBCsNormal0.0-0.0 [facility] Ferry HospitalComment on above:Performed By: #### 50557-7 #### SAMUEL RUIZ ([id number]) [facility] ([facility] [place]) [address] [place], [place] [address]Nmpuihkxt (Bld) [#/Vol]51 x10*3/tKVgi013-506MbwvitutipKettering Health MiamisburgComment on above:Performed By: #### 25232-3 #### SAMUEL RUIZ ([id number]) [facility] ([facility] [place]) [address] [place], [place] [address]QIE (Bld) [#/Vol]3.22 x10*6/uLLow4.00-5.20[facility] Ferry HospitalComment on above:Performed By: #### 05827-8 #### SAMUEL RUIZ ([id number]) [facility] ([facility] [place]) [address] [place], [place] [address]BIP (Bld) [#/Vol]1.7 x10*3/uLLow4.4-11.3[facility] Ferry HospitalComment on above:Performed By: #### 89168-8 #### SAMUEL RUIZ ([id number]) [facility] ([facility] [place]) [address] [place], [place] [address]KL GUIDED RF ABLATION LIVERon 59-85-6496UE GUIDED RF ABLATION LIVERInterpreted By: Morro Calderon and Guirguis James STUDY: CT GUIDED RF ABLATION LIVER; US GUIDED RF ABLATION LIVER; 01/05/2025 9:30 am; 01/05/2025 9:20 am INDICATION: Signs/Symptoms:liver lesion. COMPARISON: MRI abdomen dated 10/24/2024 ACCESSION NUMBER(S): [id number]; [id number] ORDERING CLINICIAN: RAMAN NICHOLAS TECHNIQUE: INTERVENTIONALIST(S): MD [...] findings as stated. Performed and dictated at [facility]. MACRO: None. Signed by: Morro Calderon 01/06/2025 8:37 AM Dictation workstation: [id number] County Health CenterCoagulation tissue factor inducedon 08-33-3544XP Coag (PPP) [Time]13.9 s High9.8-12.4Mart[facility] Ferry HospitalComment on above: Performed By: #### 5902-2 #### SAMUEL RUIZ ([id number]) [facility] ([facility] [place]) [address] [place], [place] [address]Xeenkpiwzfodl metabolic 2000 panelon 75-47-7819Qjhhkvm BCP dye [Mass/Vol]3.6 g/dL3.4 - 5.0 g/dLUnTrinity Health System Twin City Medical CenterALP [Catalytic activity/Vol]75 U/L33 - 136 U/[facility] CenterALT With P-5'-P [Catalytic activity/Vol]13 U/L7 - 45 U/[facility] on above:Patients treated with Sulfasalazine may generate falsely decreased results for ALT.Anion gap [Moles/Vol]10 mmol/L10 - 20 mmol/[facility] CenterAST With P-5'-P [Catalytic activity/Vol]27 U/L9 - 39 U/[facility] CenterBilirubin [Mass/Vol]0.6 mg/dL0.0 - 1.2 mg/dLUnTrinity Health System Twin City Medical CenterCalcium [Mass/Vol]8.5 mg/dLLow8.6 - 10.3 mg/dLUnTrinity Health System Twin City Medical CenterChloride [Moles/Vol]105 mmol/L98 - 107 mmol/[facility] CenterCO2 [Moles/Vol]26 mmol/L21 - 32 mmol/[facility] CenterCreatinine [Mass/Vol]0.9 mg/dL0.50 - 1.05 mg/dLUnTrinity Health System Twin City Medical CenterGFR/1.73 sq M.predicted among non-blacks MDRD (S/P/Bld) [Vol rate/Area]70 mL/min/{1.73_m2}- PINFUniParkview Health on above:Calculations of estimated GFR are performed using the 2020 CKD-EPI Study Refit equation without therace variable for the IDMS-Traceable creatinine methods. https://jasn.asnjournals.org/content/early/ASN.9583110817 Glucose [Mass/Vol]95 mg/dL74 - 99 mg/dLUnTrinity Health System Twin City Medical Center Interpretation and review of laboratory resultsAbnormalUniTriHealth McCullough-Hyde Memorial HospitalPotassium [Moles/Vol]4.2 mmol/L3.5 - 5.3 mmol/[facility] CenterProtein [Mass/Vol]5.6 g/dLLow6.4 - 8.2 g/dLUnTrinity Health System Twin City Medical CenterSodium [Moles/Vol]137 mmol/L136 - 145 mmol/[facility] CenterUrea nitrogen [Mass/Vol]13 mg/dL6 - 23 mg/dLUnTrinity Health System Twin City Medical CenterUnTrinity Health System Twin City Medical CenterAlbumin BCP dye [Mass/Vol]3.6 g/dL Normal3.4-5.0UnKettering Health MiamisburgComment on above: Performed By: #### 06557-1 #### SAMUEL RUIZ ([id number]) [facility] ([facility] [place]) [address] [place], [place] [address]YND [Catalytic activity/Vol]75 U/AUtbgvu28-362IoqgpejnanMartins Ferry HospitalComment on above:Performed By: #### 72043-3 #### SAMUEL RUIZ ([id number]) [facility] ([facility] [place]) [id number] [place] [address]GRI With P-5'-P [Catalytic activity/Vol]13 U/LNormal7-45 [facility] Ferry HospitalComment on above:Result Comment: Patients treated with Sulfasalazine may generate falsely decreased results for ALT.Performed By: #### 99236-3 #### SAMUEL RUIZ ([id number]) [facility] ([facility] [place]) [address] [place], [place] [address]Ekozq gap [Moles/Vol]10 mmol/TYpzbun85-34VdrtvodahsMartins Ferry HospitalComment on above:Performed By: #### 44822-6 #### SAMUEL RUIZ ([id number]) [facility] ([facility] [place]) [address] [place], [place] [address]BKC With P-5'-P [Catalytic activity/Vol]27 U/LNormal9-39 [facility] Ferry HospitalComment on above:Performed By: #### 54993-9 #### SAMUEL RUIZ ([id number]) [facility] ([facility] [place]) [address] [place], [place] [address]Rioeiohkc [Mass/Vol]0.6 mg/dLNormal0.0-1.2UnKettering Health MiamisburgComment on above:Performed By: #### 23175-6 #### SAMUEL RUIZ ([id number]) [facility] ([facility] [place]) [address] [place], [place] [address]Ihglphf [Mass/Vol]8.5 mg/dLLow8.6-10.3UnKettering Health MiamisburgComment on above:Performed By: #### 88584-4 #### SAMUEL RUIZ ([id number]) [facility] ([facility] [place]) [address] [place], [place] [address]Kogatkuy [Moles/Vol]105 mmol/NOdzvfv62-218VvojyobytcKettering Health MiamisburgComment on above:Performed By: #### 17987-3 #### SAMUEL RUIZ ([id number]) [facility] ([facility] [place]) [address] [place], [place] [address]ZK9 [Moles/Vol]26 mmol/OQqnovd99-81XxdqfosdvuKettering Health MiamisburgComment on above:Performed By: #### 36682-2 #### SAMUEL RUIZ ([id number]) [facility] ([facility] [place]) [address] [place], [place] [address]Rypmgauedf [Mass/Vol]0.90 mg/dLNormal0.50-1.05UnKettering Health MiamisburgComment on above:Performed By: #### 72657-3 #### SAMUEL RUIZ ([id number]) [facility] ([facility] [place]) [address] [place], [place] [address]Tnjullrpnx filtration rate/1.73 sq M.janlxetlk08 mL/min/1.73m*2Normal>60UnKettering Health MiamisburgComment on above:Result Comment: Calculations of estimated GFR are performed using the 2020 CKD-EPI Study Refit equation without the race variable for the IDMS-Traceable creatinine methods. https://jasn.asnjournals.org/content/early//ASN.0381595379Nqenijscb By: #### 47073-4 #### SAMUEL RUIZ ([id number]) [facility] ([facility] [place]) [address] [facility], [place] [address]Zbboiez [Mass/Vol]95 mg/aAHlrrle74-70QlpaacunmyKettering Health MiamisburgComment on above:Performed By: #### 42753-9 #### SAMUEL RUIZ ([id number]) [facility] ([facility] [place]) [address] [place], [place] [address]Iqaavvtqu [Moles/Vol]4.2 mmol/LNormal3.5-5.3UnKettering Health MiamisburgComment on above:Performed By: #### 81299-3 #### SAMUEL RUIZ ([id number]) [facility] ([facility] [place]) [address] [place], [place] [address]Stzyyyf [Mass/Vol]5.6 g/dLLow6.4-8.2UnKettering Health MiamisburgComment on above:Performed By: #### 72536-1 #### SAMUEL RUIZ ([id number]) [facility] ([facility] [place]) [address] [place], [place] [address]Ebnvrm [Moles/Vol]137 mmol/XDuqhyo435-108ZrdsdaigcdKettering Health MiamisburgComment on above:Performed By: #### 99481-0 #### SAMUEL RUIZ ([id number]) [facility] ([facility] [place]) [address] [place], [place] [address]Nlqd nitrogen [Mass/Vol]13 mg/dLNormal6-23UnKettering Health MiamisburgComment on above:Performed By: #### 09992-3 #### SAMUEL RUIZ ([id number]) [facility] ([facility] [place]) [address] [place], [place] [address]Eeqjeqb Test strip manual (Bld) [Mass/Vol]on 68-54-3736Qjhbahd [Mass/Vol]91 mg/dL74 - 99 mg/dLUnTrinity Health System Twin City Medical CenterInterpretation and review of laboratory resultsNoalUProMedica Bay Park HospitalGlucose [Mass/Vol]91 mg/dDHkfrez48-72DpmhnmanmyKettering Health MiamisburgComment on above:Performed By: #### 2341-6 #### SAMUEL RUIZ ([id number]) [facility] ([facility] [place]) [address] [place], [place] [address]WA Coag (PPP) [Time]on 56-44-8501XIQ Coag (PPP) [Relative time]1.3 {INR}High0.9 - 1.1Chillicothe HospitalInterpretation and review of laboratory resultsAbnoKettering Health HamiltonUnTrinity Health System Twin City Medical CenterINR Coag (PPP) [Relative time]1.3High0.9-1.1UnKettering Health MiamisburgComment on above:Performed By: #### 5902-2 #### SAMUEL RUIZ ([id number]) [facility] ([facility] [place]) [address] [place], [place] [address]Hstkkda-TDUxo 35-53-6223PA Coag (PPP) [Time]13.9 [facility] HospitalUS GUIDED RF ABLATION LIVERon 01-39-7243FT GUIDED RF ABLATION LIVERInterpreted By: Morro Calderon and Guirguis James STUDY: CT GUIDED RF ABLATION LIVER; US GUIDED RF ABLATION LIVER; 01/05/2025 9:30 am; 01/05/2025 9:20 am INDICATION: Signs/Symptoms:liver lesion. COMPARISON: MRI abdomen dated 10/24/2024 ACCESSION NUMBER(S): [id number]; [id number] ORDERING CLINICIAN: RAMAN NICHOLAS TECHNIQUE: INTERVENTIONALIST(S): MD [...] findings as stated. Performed and dictated at [facility]. MACRO: None. Signed by: Morro Calderon 01/06/2025 8:37 AM Dictation workstation: [id number] County Health CenterCreatinineon 80-92-1254Nrbocczkni [Mass/Vol]1.02 mg/dLNormal0.60-1.20The Un[facility] Appalachian Physician GroupComment on above:Performed By: #### CREAT ####[facility] [place] [address] USACreatinine Clr Calc Ngtfajjn04.36NormalThSt. Luke's Elmore Medical Center Physician GroupComment on above:Result Comment: PERFORMED BY:[place] [address] [place], [place] [phone] MEDICAL DIRECTORMOSRI SCHMIDT M.D. Performed By: #### CREAT ####[place] [id number] USAGFR/1.73 sq M.predicted MDRD (S/P/Bld) [Vol rate/Area]mL/min/{1.73_m2}NormalThe [facility]alachian Physician GroupComment on above: Performed By: #### CREAT ####[place] [address] USACreatinine [Mass/Vol]on 29-16-9303Nbcdqlskhg (U) [Mass/Vol]1.02 mg/dL0.60 - 1.20 mg/dLNOAR HealthcareCREATININE CLR CALC PHARMACY 54.36NOMS HealthcareESTIMATED GFRmL/MinNOAR HealthcareNOAR HealthcareScan and CBCon 96-68-5363Gnxjbssxsqlk Ql (Bld)ModerateNormalThe [facility] Comment on above:Performed By: #### SCAN CBC ####[place] [address] USABasophils (Bld) [#/Vol]0.0 10*3/uL Normal0.0-0.2The [facility]alachian Physician GroupComment on above:Performed By: #### SCAN CBC ####[place] [address] USABasophils/100 WBC (Bld)0.5 %Normal.The [facility]alachian Physician GroupComment on above:Performed By: #### SCAN CBC ####[place] [address] USAEosinophils (Bld) [#/Vol]0.3 10*3/uLNormal0.0-0.45 The [facility]alachian Physician GroupComment on above:Performed By: #### SCAN CBC ####[place] [address] [place] Eosinophils/100 WBC (Bld)14.5 %Normal.The [facility]alachian Physician GroupComment on above:Performed By: #### SCAN CBC ####[place] [address] USAErythrocyte distribution width (RBC) [Ratio]19.2 % High11.9-15.3The [facility]alachian Physician GroupComment on above:Performed By: #### SCAN CBC ####[place] [address] USAHematocrit (Bld) [Volume fraction]27.9 %Low34.0-46.4The [facility]alachian Physician GroupComment on above:Performed By: #### SCAN CBC ####[place] [address] USAHemoglobin (Bld) [Mass/Vol]9.2 g/dLLow 11.8-15.4The [facility]achian Physician GroupComment on above:Performed By: #### SCAN CBC ####[place] [address] [place] HypochromasiaSlightNormalThe [facility]alachian Physician GroupComment on above:Performed By: #### SCAN CBC ####[place] [address] USALymphocytes (Bld) [#/Vol]0.5 10*3/uLLow1.00-4.8The [facility]achian Physician GroupComment on above:Performed By: #### SCAN CBC ####[place] [address] USALymphocytes/100 WBC (Bld)21.7 %Normal.The [facility]achian Physician GroupComment on above:Performed By: #### SCAN CBC ####[place] [address] USAMCH (RBC) [Entitic mass]27.0 ubPjqjfj56.7-34.3The [facility]ian Physician GroupComment on above:Performed By: #### SCAN CBC ####[place] [address] USAMCV (RBC) [Entitic vol]82.2 fLNormal 80-100The [facility]alachian Physician GroupComment on above:Performed By: #### SCAN CBC ####[place] [address] USAMean Corpuscular HGB Conc32.9 g/hEXmoknn68.0-35.0The [facility]ian Physician GroupComment on above:Performed By: #### SCAN CBC ####[place] [address] USAMicrocytosisModerateNoCritical access hospital Physician GroupComment on above:Performed By: #### SCAN CBC ####[place] [address] USAMonocytes (Bld) [#/Vol]0.5 10*3/uLNormal0.0-0.8The [facility] Physician GroupComment on above: Performed By: #### SCAN CBC ####[place] [address] USAMonocytes/100 WBC (Bld)20.4 %Normal.The [facility] Physician GroupComment on above:Performed By: #### SCAN CBC ####[place] [address] USANeutrophils (Bld) [#/Vol]1.0 10*3/uLLow1.8-7.7The [facility] Physician GroupComment on above: Performed By: #### SCAN CBC ####[place] [address] USANeutrophils/100 WBC (Bld)42.9 %Normal.The [facility] Physician GroupComment on above:Performed By: #### SCAN CBC ####[place] [address] USANRBC%0.1 /100{WBC} Normal0-0.5The [facility]ian Physician GroupComment on above:Performed By: #### SCAN CBC ####[place] [address] [place] OvalocytesSlightSt. Vincent's Medical Center Southside Physician GroupComment on above:Performed By: #### SCAN CBC ####[place] [address] USAPlatelet EstimateDecreasedNormalSt. Vincent's Medical [facility] Southside Physician Group Comment on above:Performed By: #### SCAN CBC ####[address] [address] USAPlatelet mean volume (Bld) [Entitic vol]7.8 fLNormal6.3-10.7The [facility]ian Physician GroupComment on above:Performed By: #### SCAN CBC ####[address] [address] USAPlatelet MorphologyNormalNormalNoCritical access hospital Physician Group Comment on above:Result Comment: PERFORMED BY:[address] [place], [place] [phone] MEDICAL DIRECTORTAVIA SCHMIDT M.D.Performed By: #### SCAN CBC ####[place] [address] USAPlatelets (Bld) [#/Vol]64 10*3/tDCfk843-286Eat [facility] Physician GroupComment on above: Performed By: #### SCAN CBC ####[address] [address] USAPolychromasiaSlightNoCritical access hospital Physician [facility] HospitalComment on above:Performed By: #### SCAN CBC ####[address] [address] USARBC (Bld) [#/Vol]3.40 10*6/uLLow 3.60-5.00The [facility] Physician GroupComment on above:Performed By: #### SCAN CBC ####[place] [address] USAWBC (Bld) [#/Vol]2.4 10*3/uLLow3.8-11.6The [facility] Physician GroupComment on above:Performed By: #### SCAN CBC ####[address] [address] USAFREE K+L LT CHAINS, QN, Son 42-42-2006FIRI KAPPA LIGHT CHAINS, Smg/LLow3.3 - 19.4 mg/LNOMS HealthcareFREE LAMBDA LIGHT CHAINS, S mg/LLow5.7 - 26.3 mg/LNOMS HealthcareInterpretation and review of laboratory resultsAbHelen Newberry Joy HospitalKAPPA/LAMBDA RATIO, S.NOMS HealthcareComment on above:Unable to calculate result since non-numeric result obtained for component test. Performed at: [address] [id number] Door Glass Installer: Lang Knight PhD, Phone: [phone] [facility] HealthcareIMMUNOGLOBULINS A/G/M, QN, SERon 97-25-4641XFYFHXZWCOUNTB A, SERUMmg/dLLow87 - 352 mg/dLNOAR HealthcareComment on above:Result confirmed on concentration.IMMUNOGLOBULIN G313 mg/jLIfa884 - 1602 mg/dLNOAR Healthcare IMMUNOGLOBULIN M, SERUMmg/dLLow26 - 217 mg/dLNOAR HealthcareComment on above: Result confirmed on concentration. Performed at: [address] [id number] Door Glass Installer: Lang Knight PhD, Phone: [phone] Interpretation and review of laboratory resultsAbFrye Regional Medical CenterAlanine aminotransferase [Enzymatic activity/volume] in Serum or PlasmaOrdered By: Fabiola Marinelli on 86-36-4252RPZ [Catalytic activity/Vol]Alanine aminotransferase [Enzymatic activity/volume] in Serum or Plasma7Children[facility]S Hospital For RehabilitationAlbumin [Mass/volume] in Serum or Plasma by Bromocresol green (BCG) dye binding methoOrdered By: Fabiola Marinelli on 25-00-2141Ezthoew BCG dye [Mass/Vol]Albumin [Mass/volume] in Serum or Plasma by Bromocresol green (BCG) dye binding metho3.5-5.7FOhioHealth Arthur G.H. Bing, MD, Cancer CenterAlkaline phosphatase [Enzymatic activity/volume] in Serum or PlasmaOrdered By: Fabiola Marinelli on 20-81-5036RGA [Catalytic activity/Vol]Alkaline phosphatase [Enzymatic activity/volume] in Serum or Tfjxvi37-707PvfsdysumChildren'S Hospital For Rehabilitation Aspartate aminotransferase [Enzymatic activity/volume] in Serum or PlasmaOrdered By: Fabiola Marinelli on 37-72-4939NWP [Catalytic activity/Vol]Aspartate aminotransferase [Enzymatic activity/volume] in Serum or Bnzphk39-80SfdleiqokChildren'S Hospital For RehabilitationBand form neutrophils/100 WBC Manual cnt (Bld)Ordered By: Fabiola Marinelli on 89-96-6752Npau form neutrophils/100 WBC (Bld)Peripheral white blood cell differential % bands, microscopic examHigh064 Wilson StreetBand form neutrophils/100 leukocytes in Blood by Manual countOrdered By: Fabiola Yves on 60-41-2818Ntbr form neutrophils/100 WBC (Bld)9 %High064 Wilson StreetComment on above:Performed By: #### CMP, TSH3, DIFF CBC ####[facility] [address] Bilirubin.total [Mass/volume] in Serum or PlasmaOrdered By: Fabiola Marinelli on 17-06-4802Gqvjfrlii [Mass/Vol]Bilirubin.total [Mass/volume] in Serum or Plasma 0.3-1.0Children[facility] Hospital For RehabilitationCalcium [Mass/volume] in Serum or Plasma Ordered By: Fabiola Marinelli on 09-41-1546Dzezbdk [Mass/Vol]Calcium [Mass/volume] in Serum or Plasma8.6-10.3FOhioHealth Arthur G.H. Bing, MD, Cancer CenterCarbon dioxide, total [Moles/volume] in Serum or PlasmaOrdered By: Fabiola Marinelli on 74-93-2770BZ4 [Moles/Vol]Carbon dioxide, total [Moles/volume] in Serum or Xfwrhw88.0-31.0 [facility] Hospital For RehabilitationChloride [Moles/volume] in Serum or Plasma Ordered By: Fabiola Marinelli on 01-82-7494Mhmosveo [Moles/Vol]Chloride [Moles/volume] in Serum or Tiywda51-706QbxqtuwqzChildren'S Hospital For RehabilitationComprehensive Metabolic Panelon 13-44-8289Grwahui [Mass/Vol]3.7 g/dLNormal3.5-5.7The [facility] Physician GroupComment on above:Performed By: #### CMP, TSH3, DIFF CBC ####[facility] Albumin/Globulin [Mass ratio]1.9 {ratio}NormalThe [facility] Comment on above:Performed By: #### CMP, TSH3, DIFF CBC ####[facility] [place] [address] USAALP [Catalytic activity/Vol]83 U/FTaxssu94-623Gnk [facility] Physician GroupComment on above:Performed By: #### CMP, TSH3, DIFF CBC ####[address] [address] USAALT [Catalytic activity/Vol]14 U/LNormal7-52The [facility]alachian Physician GroupComment on above:Performed By: #### CMP, TSH3, DIFF CBC ####[address] [address] USAAnion gap [Moles/Vol] 9.3 mmol/LNormal6.0-15.0The [facility]ian Physician GroupComment on above:Performed By: #### CMP, TSH3, DIFF CBC ####[place] [address] USAAST [Catalytic activity/Vol]24 U/HXllmqi30-95Wvq [facility] Physician GroupComment on above:Performed By: #### CMP, TSH3, DIFF CBC ####[address] [address] [place] Bilirubin [Mass/Vol]0.7 mg/dLNormal0.3-1.0The [facility] Physician GroupComment on above:Performed By: #### CMP, TSH3, DIFF CBC ####[address] [address] USACalcium [Mass/Vol]9.2 mg/dLNormal 8.6-10.3The [facility] Physician GroupComment on above:Performed By: #### CMP, TSH3, DIFF CBC ####[address] [address] USAChloride [Moles/Vol]103 mmol/ETgycgh33-047Osv [facility] Comment on above:Performed By: #### CMP, TSH3, DIFF CBC ####[address] [address] USACO2 [Moles/Vol]29.0 mmol/L Uswxli32.0-31.0The [facility] Physician GroupComment on above:Performed By: #### CMP, TSH3, DIFF CBC ####[facility] [place] [address] USACreatinine [Mass/Vol]1.00 mg/dLNormal0.60-1.20The [facility] Physician GroupComment on above:Performed By: #### CMP, TSH3, DIFF CBC ####[place] [address] [place] [address] [place] Creatinine Clr Calc Thsoijsw38.15NormalThe [facility] Physician GroupComment on above:Performed By: #### CMP, TSH3, DIFF CBC ####[place] [address] [place] [address] USAGFR/1.73 sq M.predicted MDRD (S/P/Bld) [Vol rate/Area]mL/min/{1.73_m2}NormalThe [facility] Physician GroupComment on above:Performed By: #### CMP, TSH3, DIFF CBC ####[place] [address] USAGlobulin (S) [Mass/Vol]1.9 g/dLNormal The [facility]ian Physician GroupComment on above:Performed By: #### CMP, TSH3, DIFF CBC ####[place] [address] [place] Glucose [Mass/Vol]107 mg/yPBtmh21-610Rih [facility] Physician GroupComment on above:Result Comment: Random Glucose Reference Range is dependent on time and content of last meal. Glucose of more than 200 mg/dL in a nonstressed, ambulatory subject supports the diagnosis of Diabetes Mellitus. ADA recommended reference rangePerformed By: #### CMP, TSH3, DIFF CBC ####[place] [address] USAPotassium [Moles/Vol]4.3 mmol/L Normal3.5-5.1The [facility] Physician GroupComment on above:Performed By: #### CMP, TSH3, DIFF CBC ####[place] [address] [place] [address] USAProtein [Mass/Vol]5.6 g/dLLow6.4-8.9The [facility] Comment on above:Performed By: #### CMP, TSH3, DIFF CBC ####[place] [address] [place] [address] USASodium [Moles/Vol]137 mmol/L Zoycma092-098Jxg [facility] Physician GroupComment on above:Performed By: #### CMP, TSH3, DIFF CBC ####[place] [address] [place] [address] USAUrea nitrogen [Mass/Vol]17 mg/dLNormal7-25The [facility] Physician GroupComment on above:Performed By: #### CMP, TSH3, DIFF CBC ####[address] [address] USACreatinine [Mass/volume] in Serum or PlasmaOrdered By: Fabiola Marinelli on 30-25-6671Jtiigaahnl [Mass/Vol]Creatinine [Mass/volume] in Serum or Plasma0.60-1.20Children'S Hospital For RehabilitationDacrocytes [Presence] in Blood by Light microscopyOrdered By: Fabiola Marinelli on 97-30-0765Rtsdslcvsg LM Ql (Bld)Teardrop cell detectionChildren'S Hospital For RehabilitationDiff and CBCon 84-92-6815Ijitmbhsjuph Ql (Bld)Slight NormalThe [facility]ian Physician GroupComment on above:Performed By: #### CMP, TSH3, DIFF CBC ####[address] [address] USAEosinophils/100 WBC (Bld)19 %High1-3The [facility] Comment on above:Performed By: #### CMP, TSH3, DIFF CBC ####[address] [address] USAErythrocyte distribution width (RBC) [Ratio]19.6 %High11.9-15.3The [facility] Physician GroupComment on above: Performed By: #### CMP, TSH3, DIFF CBC ####[address] [address] USAGiant Platelet Tally8 /100{WBC}NormalThe [facility]alachian Physician GroupComment on above:Performed By: #### CMP, TSH3, DIFF CBC ####[place] [address] [place] Hematocrit (Bld) [Volume fraction]28.6 %Low34.0-46.4The [facility] Physician GroupComment on above:Performed By: #### CMP, TSH3, DIFF CBC ####[place] [address] USAHemoglobin (Bld) [Mass/Vol]9.4 g/dLLow11.8-15.4The [facility] Physician GroupComment on above: Performed By: #### CMP, TSH3, DIFF CBC ####[place] [address] USALymphocytes/100 WBC (Bld)30 %Uwnawo59-73Wka [facility] Physician GroupComment on above:Performed By: #### CMP, TSH3, DIFF CBC ####[place] [address] USAMCH (RBC) [Entitic mass]27.3 qdKuktrp18.7-34.3The [facility] Physician GroupComment on above:Performed By: #### CMP, TSH3, DIFF CBC ####[place] [address] USAMCV (RBC) [Entitic vol]83.1 fLNormal 80-100The [facility] Physician GroupComment on above:Performed By: #### CMP, TSH3, DIFF CBC ####[place] [address] USAMean Corpuscular HGB Conc32.9 g/vVUkwhpx85.0-35.0The [facility] Physician GroupComment on above:Performed By: #### CMP, TSH3, DIFF CBC ####[place] [address] [place] Monocytes/100 WBC (Bld)7 %Normal2-11The [facility] Physician GroupComment on above:Performed By: #### CMP, TSH3, DIFF CBC ####[place] [address] USAOvalocytesSlightNormalThe [facility] Physician GroupComment on above:Performed By: #### CMP, TSH3, DIFF CBC ####[address] [address] USAPlatelet EstimateDecreasedNormalSt. Vincent's Medical Center Southside Physician GroupComment on above: Performed By: #### CMP, TSH3, DIFF CBC ####[address] [address] USAPlatelet mean volume (Bld) [Entitic vol]8.2 fL Normal6.3-10.7The [facility] Physician GroupComment on above:Performed By: #### CMP, TSH3, DIFF CBC ####[address] [address] USAPlatelet MorphologyNormalNormcoNoCritical access hospital Physician Group Comment on above:Result Comment: PERFORMED BY:[address] TSERINGRobertoErnaMOWEAQUA, [place] [phone] MEDICAL DIRECTORTAVIA SCHMIDT M.D.Performed By: #### CMP, TSH3, DIFF CBC ####[address] [address] [place] Platelets (Bld) [#/Vol]62 10*3/fWNun399-925Vta [facility] Physician GroupComment on above:Performed By: #### CMP, TSH3, DIFF CBC ####[address] [address] USAPoikilocytosisSlightSt. Vincent's Medical Center Southside Physician GroupComment on above:Performed By: #### CMP, TSH3, DIFF CBC ####[address] [address] USA PolychromasiaSlightSt. Vincent's Medical Center Southside Physician GroupComment on above:Performed By: #### CMP, TSH3, DIFF CBC ####[address] [address] USARBC (Bld) [#/Vol]3.44 10*6/uLLow3.60-5.00The [facility] Physician GroupComment on above:Performed By: #### CMP, TSH3, DIFF CBC ####[facility] [place] [address] [place] Segmented neutrophils/100 WBC (Bld)36 %[id number] [facility] Comment on above:Performed By: #### CMP, TSH3, DIFF CBC ####[address] [place] [address] USATear Drop CellsSlightNormalThe [facility]alachian Physician GroupComment on above:Performed By: #### CMP, TSH3, DIFF CBC ####[address] [place] [address] [place]WBC (Bld) [#/Vol]2.0 10*3/uLLow3.8-11.6The [facility] Physician GroupComment on above:Performed By: #### CMP, TSH3, DIFF CBC ####[address] [address] USAEosinophils/100 WBC Manual cnt (Bld) Ordered By: Fabiola Marinelli on [id number]/100 WBC (Bld)Eosinophils/100 leukocytes in Blood by Manual countHigh1-3FOhioHealth Arthur [facility] Erythrocyte distribution width Auto (RBC) [Ratio]Ordered By: Fabiola Marinelli on [id number] distribution width (RBC) [Ratio]Erythrocyte distribution width [Ratio] by Automated sjaudPnar05.9-15.3FOhioHealth Arthur G.H. [facility], [facility], Cancer Center Ferritinon 38-34-4677Ujgphaip [Mass/Vol]9.9 ng/mLLow11.0-306.8The [facility]alachian Physician GroupComment on above:Result Comment: PERFORMED BY:[address] [place], [place] [phone] MEDICAL DIRECTORTAVIA SCHMIDT M.D.Performed By: #### KAPPA ####[facility] ,#### NERY, FE and TIBC, MG ####[address] [address] USAFree K+L LT Chains, Qn, Son 54-12-3035Jzgv [place] Light Chains, S<0.7Low3.3-19.4The [facility] Appalachian Physician GroupComment on above:Performed By: #### KAPPA ####[facility] ,#### NERY, FE and TIBC, MG ####[address] [place] [address] USAFree Lambda Light Chains, S<1.5Low5.7-26.3The [facility]alachian Physician GroupComment on above:Performed By: #### KAPPA ####[facility] ,#### NERY, FE and TIBC, MG ####[place] [address] [place]/Lambda Ratio, SNormal.The [facility] Appalachian Physician GroupComment on above:Result Comment: Unable to calculate result since non-numeric result obtained for component test. Performed at: [facility] Lab[address] [id number] Door Glass Installer: Lang Knight PhD, Phone: [phone] BY:[place] [address] [phone] MEDICAL DIRECTORMOSRI SCHMIDT M.D.Performed By: #### KAPPA ####[facility] ,#### NERY, FE and TIBC, MG ####[place] [address] USAGiant platelets/100 leukocytes [Ratio] in Blood by Manual countOrdered By: Fabiola Marinelli on 12-29-2024 Giant platelets/100 WBC Manual cnt (Bld) [Ratio]Giant platelets/100 leukocytes [Ratio] in Blood by Manual countChildren'S Hospital For RehabilitationGlobulin Calc (S) [Mass/Vol]Ordered By: Fabiola Marinelli on 42-16-7096Rzmuvtmx (S) [Mass/Vol]Serum globulin measurement by calculation (mass/volume)[facility] For RehabilitationGlucose [Mass/volume] in Serum or PlasmaOrdered By: Fabiola Marinelli on 99-73-7564Yobmwlg [Mass/Vol]Glucose [Mass/volume] in Serum or SnxybtHxgu97-216 [facility] CenterHematocrit Auto (Bld) [Volume fraction]Ordered By: Fabiola Marinelli on 94-01-3339Urornydspk (Bld) [Volume fraction]Hematocrit [Volume Fraction] of Blood by Automated rygxySjp05.0-46.4FOhioHealth Arthur G.H. Bing, MD, Cancer CenterHemoglobin [Mass/volume] in BloodOrdered By: Fabiola Marinelli on 12-29-2024 Hemoglobin (Bld) [Mass/Vol]Hemoglobin [Mass/volume] in DtolzMzx71.8-15.4 [facility] Hospital For RehabilitationINR in Platelet poor plasma by Coagulation assayOrdered By: Yinka Lopez on 44-27-5485LXN Coag (PPP) [Relative time]INR in Platelet poor plasma by Coagulation assayChildren'S Hospital For Rehabilitation Immunoglobulins A/G/M, Qn, Seron 34-15-6462Sxxlupawbytzoy A, Serum<5Zag40-106Etl [facility]alachian Physician GroupComment on above:Result Comment: Result confirmed on concentration.Performed By: #### IMM OSCAR ####[facility] , Immunoglobulin G313 mg/uLBfw611-7843Zut [facility]alachian Physician GroupComment on above:Performed By: #### IMM OSCAR ####[facility] ,Immunoglobulin M, Serum<2Fwa67-944Dma [facility]alachian Physician GroupComment on above:Result Comment: Result confirmed on concentration. Performed at: [facility] Labco[address] [id number] Door Glass Installer: Lang Knight PhD, Phone: [phone] BY:[facility] [place], [place] [phone] MEDICAL DIRECTORMOSRI SCHMIDT M.D. Performed By: #### IMM OSCAR ####[facility] ,Iron and TIBC Profileon 12-29-2024% Iron Saturation7.8 %Gub46-99Xgk [facility]ician [facility] HospitalComment on above:Performed By: #### KAPPA ####[facility] ,#### NERY, FE and TIBC, MG ####[facility] [address] [place] [address] USAIron [Mass/Vol]36 ug/aDMog09-878Tre [facility] Physician GroupComment on above: Performed By: #### KAPPA ####[facility] ,#### NERY, FE and TIBC, MG ####[facility] [address] [place] [address] USATotal Iron Binding Ptipfyrj072 ug/xUTche014-246Cos [facility]alachian Physician GroupComment on above:Performed By: #### KAPPA ####[facility] ,#### NERY, FE and TIBC, MG ####[facility] [address] [place] [address] [place] Transferrin [Mass/Vol]330 mg/dHMdkxvx386-956Qer [facility]alach[facility] Physician GroupComment on above:Performed By: #### KAPPA ####[facility] ,#### NERY, FE and TIBC, MG ####[facility] [address] [place] [address] USALeukocytes [#/volume] corrected for nucleated erythrocytes in Blood by Automated counOrdered By: Fabiola Marinelli on 64-80-6332OML corrected for nucl RBC Auto (Bld) [#/Vol]Leukocytes [#/volume] corrected for nucleated erythrocytes in Blood by Automated counLow3.8-11.6FOhioHealth Arthur G.[facility]. [facility], [facility], Cancer Center Lymphocytes/100 WBC Manual cnt (Bld)Ordered By: Fabiola Marinelli on 12-29-2024 Lymphocytes/100 WBC (Bld)Lymphocytes/100 leukocytes in Blood by Manual count 18-42[facility] Auto (RBC) [Entitic mass]Ordered By: Fabiola Mairnelli on 65-07-1840ZTF (RBC) [Entitic mass]MCH [Entitic mass] by Automated count24.7-34.3FWilson HealthHC Auto (RBC) [Mass/Vol]Ordered By: Fabiola Marinelli on 08-67-8232UQEH (RBC) [Mass/Vol]MCHC [Mass/volume] by Automated count32.0-35.0[facility] Auto (RBC) [Entitic vol] Ordered By: Fabiola Marinelli on 69-41-1962HHZ (RBC) [Entitic vol]MCV [Entitic volume] by Automated -437VnwvrqhgpChildren'S Hospital For RehabilitationMagnesium [Mass/volume] in Serum or PlasmaOrdered By: Fabiola Marinelli on 58-86-0905Usdlrpazo [Mass/Vol] Magnesium [Mass/volume] in Serum or PlasmaLow1.9-2.7FOhioHealth Arthur G.H. Bing, MD, Cancer CenterMagnesium [Mass/Vol]1.7 mg/dLLow1.9-2.7FOhioHealth Arthur G.[facility] Comment on above:Performed By: #### KAPPA ####[facility] ,#### NERY, FE and TIBC, MG ####[facility] [address] [place] [address] USAMonocytes/100 WBC Manual cnt (Bld)Ordered By: Fabiola Marinelli on 12-29-2024 Monocytes/100 WBC (Bld)Monocytes/100 leukocytes in Blood by Manual count2-11 [facility] For RehabilitationNo Panel InformationOrdered By: Fabiola Marinelli on 12-29-2024> 60.0 mL/MinChildren'S Hospital For Rehabilitation55.15[facility] For RehabilitationPT Coag (Bld) [Time]on 47-08-0501HPO Coag (PPP) [Relative time]1.2 {INR}[facility] HealthcareComment on above:INR Therapeutic Range A) Pre- [...] - 4.5 Interpretation and review of laboratory resultsAbnormalNOMS HealthcarePT Coag (PPP) [Time]13.8 sHigh9.0 - 12.9 sNTULSA CENTER FOR BEHAVIORAL HEALTH – TULSA HealthcareComment on above:A hematocrit value greater than 55% may lead to inaccurate results in coagulation testing. Patients having hematocrit values >55% require a special collection tube for coagulation studies. Please contact the laboratory at [phone] for redraw instructions. NOMS HealthcarePlatelet mean volume Auto (Bld) [Entitic vol]Ordered By: Fabiola Marinelli on 14-54-5816Uyacnchg mean volume (Bld) [Entitic vol]Platelet mean volume [Entitic volume] in Blood by Automated count6.3-10.7FOhioHealth Arthur G.H. Bing, MD, Cancer CenterPlatelets Auto (Bld) [#/Vol]Ordered By: Fabiola Marinelli on 97-96-8800Ydijqvikp (Bld) [#/Vol]Platelets [#/volume] in Blood by Automated xrgmnYlt655-438DpauwxqtyChildren'S Hospital For RehabilitationPotassium [Moles/volume] in Serum or PlasmaOrdered By: Fabiola Marinelli on 83-14-3014Gdefevftm [Moles/Vol]Potassium [Moles/volume] in Serum or Plasma3.5-5.1FOhioHealth Arthur G.H. Bing, MD, Cancer CenterProtein [Mass/volume] in Serum or PlasmaOrdered By: Fabiola Marinelli on 63-20-9531Egvwerd [Mass/Vol]Protein [Mass/volume] in Serum or PlasmaLow6.4-8.9[facility] Prothrombin Time INRon 94-26-1657SHG Coag (PPP) [Relative time]1.2 {INR}Normal The [facility] Appalachian Physician GroupComment on above:Result Comment: INR Therapeutic [...] with mechanical heart valves: 3 - 4.5PERFORMED BY:[address] [place], [place] [phone] MEDICAL DIRECTORTAVIA SCHMIDT M.D. Performed By: #### PT ####[facility] [place] [address] USAPT Coag (PPP) [Time]13.8 sHigh9.0-12.9The [facility] Appalachian Physician GroupComment on above:Result Comment: A hematocrit value greater than 55% may lead to inaccurate results in coagulation testing. Patients having hematocrit values >55% require a special collection tube for coagulation s tucaleb. Please contact the laboratory at [phone] for redraw instructions. Performed By: #### PT ####[facility] [address] [place] [address] USAProthrombin time (PT)Ordered By: Yinka Lopez on 48-43-9462CS Coag (PPP) [Time]Prothrombin time (PT)High9.0-12.9[facility] Hospital For RehabilitationRBC Auto (Bld) [#/Vol]Ordered By: Fabiola Marinelli on 12-29-2024 RBC (Bld) [#/Vol]Erythrocytes [#/volume] in Blood by Automated countLow3.60-5.00 [facility]ma Healthegmented neutrophils/100 WBC Manual cnt (Bld) Ordered By: Fabiola Marinelli on 11-31-7767Bjxqzfdci neutrophils/100 WBC (Bld)Manual blood segmented neutrophils/100 nvajntbguiUan16-52EeognpaodSumma Healtherum free kappa light chain measurementOrdered By: Fabiola Marinelli on 51-63-0637Mqqhenuzzfuupo light chains.kappa.free (S) [Mass/Vol]Immunoglobulin light chains.kappa.free [Mass/volume] in SerumLow3.3-19.4FOhioHealth Arthur G.H. Bing, MD, Cancer CenterImmunoglobulin light chains.kappa.free (S) [Mass/Vol]<0.7 mg/LLow 3.3-19.4FKettering Health Daytonerum immunoglobulin free kappa light chains/immunoglobulin free lambda light chainsOrdered By: Fabiola Marinelli on 82-87-8849Imevlqickqbbrl light chains.kappa.free/Immunoglobulin light chains.lambda.free (S) [Mass ratio]Immunoglobulin light chains.kappa.free/Immunoglobulin light chains.lambda.free [Mass.[facility] For RehabilitationImmunoglobulin light chains.kappa.free/Immunoglobulin light chains.lambda.free (S) [Mass ratio]See comment.[facility]ma Healtherum or plasma IgA measurement (mass/volume)Ordered By: Fabiola Marinelli on 26-47-7962HtF [Mass/Vol]IgA [Mass/volume] in Serum or WtntkyCnh23-986RxaeirhrlSumma Healtherum or plasma IgG measurement (mass/volume)Ordered By: Fabiola Marinelli on 55-52-7307RyV [Mass/Vol]IgG [Mass/volume] in Serum or PlasmaLow 586-1602Summa Healtherum or plasma IgM measurement (mass/volume)Ordered By: Fabiola Marinelli on 59-14-3708FiU [Mass/Vol]IgM [Mass/volume] in Serum or MyzvetZyf14-377KyqqoytwvSumma Healtherum or plasma albumin/globulin mass ratioOrdered By: Fabiola Marinelli on 49-79-6902Vagisvx/Globulin [Mass ratio]Serum or plasma albumin/globulin mass ratioSumma Healtherum or plasma anion gap determinationOrdered By: Fabiola Marinelli on 97-15-7030Xtnmd gap [Moles/Vol]Serum or plasma anion gap determination6.0-15.0 Summa Healtherum or plasma immunoglobulin free lambda light chains measurement (mass/volume)Ordered By: Fabiola Marinelli on 12-29-2024 Immunoglobulin light chains.lambda.free [Mass/Vol]Immunoglobulin light chains.lambda.free [Mass/volume] in Serum or PlasmaLow5.7-26.3FOhioHealth Arthur G.H. Bing, MD, Cancer CenterImmunoglobulin light chains.lambda.free [Mass/Vol]mg/LLow5.7-26.3 Summa Healthodium [Moles/volume] in Serum or PlasmaOrdered By: Fabiola Marinelli on 79-85-0122Bxmiau [Moles/Vol]Sodium [Moles/volume] in Serum or Ueuzqb678-631KyuongjqxChildren'S Hospital For RehabilitationThyrotropin [Units/volume] in Serum or PlasmaOrdered By: Yinka Lopez on 36-24-0115QFP QnThyrotropin [Units/volume] in Serum or Plasma0.45-5.33[facility] Hospital For RehabilitationTSH Qn5.13 m[IU]/LNormal0.45-5.33[facility] Hospital For RehabilitationComment on above: Result Comment: PERFORMED BY:[facility] [place], [place] [phone] MEDICAL DIRECTORTAVIA HORAN M.D.Performed By: #### CMP, TSH3, DIFF CBC ####[facility] [place] [address] USAUrea nitrogen [Mass/volume] in Serum or PlasmaOrdered By: Fabiola Marinelli on 77-27-5733Fuza nitrogen [Mass/Vol]Urea nitrogen [Mass/volume] in Serum or Plasma7[facility] WBC Auto (Bld) [#/Vol]Ordered By: Fabiola Marinelli on 10-24-2817YID (Bld) [#/Vol] Leukocytes [#/volume] in Blood by Automated countLow3.8-11.6FOhioHealth Arthur G.H. Bing, MD, Cancer CenterECG 12 leadon 39-15-5301G-fibAvita Health System Bucyrus HospitalECG 12 lead ECGon 61-26-1141YLD 12 lead ECGSt. Vincent's Medical Center [facility]side Physician DzebzGgF8f (Bld) [Mass fraction]on 31-89-4148Wgzgftyruuvsxa and review of laboratory results NormalFormerly Alexander Community HospitalPOCT glycosylated hemoglobin (Hb A1C) docked deviceon 95-76-7163XzX2c (Bld) [Mass fraction]5.6 %NOMS HealthcareAlanine aminotransferase [Enzymatic activity/volume] in Serum or PlasmaOrdered By: Fabiola Marinelli on 05-37-8879JOY [Catalytic activity/Vol]Alanine aminotransferase [Enzymatic activity/volume] in Serum or Plasma7Children'S Hospital For RehabilitationAlbumin [Mass/volume] in Serum or Plasma by Bromocresol green (BCG) dye binding methoOrdered By: Fabiola Marinelli on 58-40-0601Ryyitkl BCG dye [Mass/Vol] Albumin [Mass/volume] in Serum or Plasma by Bromocresol green (BCG) dye binding metho3.5-5.7FOhioHealth Arthur G.H. Bing, MD, Cancer CenterAlkaline phosphatase [Enzymatic activity/volume] in Serum or PlasmaOrdered By: Fabiola Marinelli on 66-30-0650WKP [Catalytic activity/Vol]Alkaline phosphatase [Enzymatic activity/volume] in Serum or Xvrqts00-547NffxanstrChildren'S Hospital For RehabilitationAnisocytosis LM Ql (Bld) Ordered By: Fabiola Marinelli on 99-82-6551Objiitpenpjv Ql (Bld)Anisocytosis [Presence] in Blood by Light microscopyChildren'S Hospital For RehabilitationAspartate aminotransferase [Enzymatic activity/volume] in Serum or PlasmaOrdered By: Fabiola Marinelli on 38-06-8909FXR [Catalytic activity/Vol]Aspartate aminotransferase [Enzymatic activity/volume] in Serum or Oyyrqb79-66OzhcrynxjChildren'S Hospital For RehabilitationBasophils Auto (Bld) [#/Vol]Ordered By: Fabiola Marinelli on 28-04-4385Lhrvmtbig (Bld) [#/Vol]Automated basophil count0.0-0.2FOhioHealth Arthur G.H. [facility], MD, Cancer Center Basophils/100 WBC Auto (Bld)Ordered By: Fabiola Marinelli on 25-77-5718Ttjlqstvn/100 WBC (Bld)Automated basophil %.Children[facility] Hospital For RehabilitationBilirubin.total [Mass/volume] in Serum or PlasmaOrdered By: Fabiola Marinelli on 76-47-0267Nwuzzabpk [Mass/Vol]Bilirubin.total [Mass/volume] in Serum or Plasma0.3-1.0[facility] For RehabilitationBlood toxic granulation detection by light microscopy Ordered By: Fabiola Marinelli on 36-47-7160Zqvlw granules LM Ql (Bld)Blood toxic granulation detection by light microscopyChildren'S Hospital For RehabilitationToxic granules LM Ql (Bld)ModerateChildren'S Hospital For RehabilitationCalcium [Mass/volume] in Serum or PlasmaOrdered By: Fabiola Marinelli on 43-19-6785Ddbprqc [Mass/Vol]Calcium [Mass/volume] in Serum or Plasma8.6-10.3FOhioHealth Arthur G.H. Bing, MD, Cancer CenterCarbon dioxide, total [Moles/volume] in Serum or PlasmaOrdered By: Fabiola Marinelli on 15-11-9612II4 [Moles/Vol]Carbon dioxide, total [Moles/volume] in Serum or Nmsqmp45.0-31.0Children[facility] Hospital For RehabilitationChloride [Moles/volume] in Serum or PlasmaOrdered By: Fabiola Marinelli on 72-15-5564Vcqoeefi [Moles/Vol] Chloride [Moles/volume] in Serum or Cymyhp78-951RejjwyooqChildren'S Hospital For RehabilitationComprehensive Metabolic Panelon 06-71-3374Kvhgoev [Mass/Vol]3.7 g/dLNormal 3.5-5.7The [facility] Appalachian Physician GroupComment on above:Performed By: #### CMP ####[id number] [facility] CENTERB Albumin/Globulin [Mass ratio]2.1 {ratio}NormalThe [facility] Comment on above:Performed By: #### CMP ####[facility] [address] [place] [address] USAALP [Catalytic activity/Vol]80 U/NIbvpty95-042 The [facility] Appalachian Physician GroupComment on above:Performed By: #### CMP ####[place] [address] USAALT [Catalytic activity/Vol]29 U/LNormal7-52The [facility] Health Appalachian Physician GroupComment on above:Performed By: #### CMP ####[place] [address] USAAnion gap [Moles/Vol]8.0 mmol/LNormal6.0-15.0The [facility] Appalachian Physician GroupComment on above:Performed By: #### CMP ####[place] [address] USAAST [Catalytic activity/Vol]35 U/OXlhcai56-13Muj [facility]achian Physician GroupComment on above: Performed By: #### CMP ####[place] [address] USABilirubin [Mass/Vol]0.7 mg/dLNormal0.3-1.0The [facility]alachian Physician GroupComment on above:Performed By: #### CMP ####[place] [address] USACalcium [Mass/Vol]8.8 mg/dLNormal8.6-10.3The [facility]alachian Physician GroupComment on above:Performed By: #### CMP ####[place] [address] USAChloride [Moles/Vol]107 mmol/DHeoxzy47-152Ylt [facility] Comment on above:Performed By: #### CMP ####[place] [address] USACO2 [Moles/Vol]28.8 mmol/HLjrcwo98.0-31.0The [facility]alachian Physician GroupComment on above:Performed By: #### CMP ####[place] [address] USACreatinine [Mass/Vol] 0.95 mg/dLNormal0.60-1.20The [facility]alachian Physician GroupComment on above:Performed By: #### CMP ####[address] [address] USACreatinine Clr Calc Djxtyucq41.06NoCritical access hospital Physician [facility] Comment on above:Result Comment: PERFORMED BY:[place] [address], [place] [phone] MEDICAL DIRECTORTAVIA SCHMIDT M.D.Performed By: #### CMP ####[address] [address] USAGFR/1.73 sq M.predicted MDRD (S/P/Bld) [Vol rate/Area]mL/min/{1.73_m2}NormalThe [facility] Comment on above:Performed By: #### CMP ####[address] [address] USAGlobulin (S) [Mass/Vol]1.8 g/dLNoCritical access hospital Physician [facility] HospitalComment on above:Performed By: #### CMP ####[address] [address] USAGlucose [Mass/Vol]82 mg/bOSrkbcq15-318Zlz [facility] Physician GroupComment on above:Result Comment: Random Glucose Reference Range is dependent on time and content of last meal. Glucose of more than 200 mg/dL in a nonstressed, ambulatory subject supports the diagnosis of Diabetes Mellitus. ADA recommended reference rangePerformed By: #### CMP ####[address] [address] USAPotassium [Moles/Vol]3.8 mmol/LNormal3.5-5.1The [facility] Physician [facility] Comment on above:Performed By: #### CMP ####[address] [address] USAProtein [Mass/Vol]5.5 g/dLLow6.4-8.9The [facility]alachian Physician GroupComment on above:Performed By: #### CMP ####[address] [address] USASodium [Moles/Vol]140 mmol/UFnmuws990-089Xcb [facility] Physician GroupComment on above:Performed By: #### CMP ####[facility] [place] [address] USAUrea nitrogen [Mass/Vol]22 mg/dLNormal7-25The [facility] Comment on above:Performed By: #### CMP ####[facility] [address] [place] [address] USAComprehensive metabolic panelon 12-07-2024 Albumin [Mass/Vol]3.7 g/dL3.5 - 5.7 g/dLNOAR HealthcareAlbumin/Globulin [Mass ratio]2.1 {ratio}NOMS HealthcareALP [Catalytic activity/Vol]80 [...] HealthcareCreatinine (U) [Mass/Vol] 0.95 mg/dL0.60 - 1.20 mg/dLNOAR HealthcareCREATININE CLR CALC ZIQBSKLS28.06NOMS HealthcareESTIMATED GFRmL/MinNOMS HealthcareGlobulin (S) [Mass/Vol]1.8 g/dLNOMS HealthcareGlucose [Mass/Vol]82 mg/dL70 - 100 mg/dLNOAR HealthcareComment on above:Random Glucose Reference Range is dependent on time and content of last meal. Glucose of more than 200 mg/dL in a nonstressed, ambulatory subject supports the diagnosis of Diabetes Mellitus. ADA recommended reference range Interpretation and review of laboratory resultsAbnormalNOMS HealthcarePotassium [Moles/Vol]3.8 mmol/L3.5 - 5.1 mmol/LNOMS HealthcareProtein [Mass/Vol]5.5 g/dL Low6.4 - 8.9 g/dLNOAR HealthcareSodium [Moles/Vol]140 mmol/L136 - 145 mmol/LNOMS HealthcareUrea nitrogen [Mass/Vol]22 mg/dL7 - 25 mg/dLNOAR HealthcareNOMS HealthcareCreatinine [Mass/volume] in Serum or PlasmaOrdered By: Fabiola Marinelli on 29-30-6660Wiikltrtkp [Mass/Vol]Creatinine [Mass/volume] in Serum or Plasma 0.60-1.20[facility] For RehabilitationEosinophils Auto (Bld) [#/Vol]Ordered By: Fabiola Marinelli on 62-78-7491Iffhgqmtwhc (Bld) [#/Vol]Automated eosinophil count 0.0-0.45[facility] For RehabilitationEosinophils/100 WBC Auto (Bld)Ordered By: Fabiola Marinelli on 19-40-0680Uqdtqusvkap/100 WBC (Bld)Automated eosinophil %. [facility] For RehabilitationErythrocyte distribution width Auto (RBC) [Ratio]Ordered By: Fabiola Marinelli on 63-38-7938Pnvnodqgdli distribution width (RBC) [Ratio]Erythrocyte distribution width [Ratio] by Automated meaquCika35.9-15.3 [facility] For RehabilitationErythrocyte morphology finding [Identifier] in BloodOrdered By: Fabiola Marinelli on 52-64-4784SMO morphology finding Nom (Bld)RBC morphologyChildren'S Hospital For RehabilitationGlobulin Calc (S) [Mass/Vol]Ordered By: Fabiola Marinelli on 44-09-3062Cjsxioal (S) [Mass/Vol]Serum globulin measurement by calculation (mass/volume)[facility] For RehabilitationGlucose [Mass/volume] in Serum or PlasmaOrdered By: Fabiola Marinelli on 87-24-8261Dflebhm [Mass/Vol]Glucose [Mass/volume] in Serum or Dzcher17-604FzelmyimzChildren'S Hospital For Rehabilitation Hematocrit Auto (Bld) [Volume fraction]Ordered By: Fabiola Marinelli on 12-07-2024 Hematocrit (Bld) [Volume fraction]Hematocrit [Volume Fraction] of Blood by Automated cdqkzZrf38.0-46.4FOhioHealth Arthur G.H. Bing, MD, Cancer CenterHemoglobin [Mass/volume] in BloodOrdered By: Fabiola Marinelli on 68-37-7829Mkuilmklvr (Bld) [Mass/Vol]Hemoglobin [Mass/volume] in AuocjGkr76.8-15.4FOhioHealth Arthur G.H. Bing, MD, Cancer CenterHypochromia LM Ql (Bld)Ordered By: Fabiola Marinelli on 12-07-2024 Hypochromia Ql (Bld)Hypochromia [Presence] in Blood by Light microscopyChildren'S Hospital For RehabilitationLeukocytes [#/volume] corrected for nucleated erythrocytes in Blood by Automated counOrdered By: Fabiola Marinelli on 45-98-9153PPG corrected for nucl RBC Auto (Bld) [#/Vol]Leukocytes [#/volume] corrected for nucleated erythrocytes in Blood by Automated counLow3.8-11.6FOhioHealth Arthur G.H. Bing, MD, Cancer CenterLymphocytes Auto (Bld) [#/Vol]Ordered By: Fabiola Marinelli on 12-07-2024 Lymphocytes (Bld) [#/Vol]Lymphocytes [#/volume] in Blood by Automated countLow 1.00-4.8[facility] Hospital For RehabilitationLymphocytes/100 WBC Auto (Bld)Ordered By: Fabiola Marinelli on 78-40-3659Pppwbqghkqq/100 WBC (Bld)Lymphocytes/100 leukocytes in Blood by Automated count.[facility] Hospital For RehabilitationMCH Auto (RBC) [Entitic mass]Ordered By: Fabiola Marinelli on 38-13-3221NLS (RBC) [Entitic mass]MCH [Entitic mass] by Automated count24.7-34.3FOhioHealth Arthur G.H. Bing, MD, Cancer CenterMCHC Auto (RBC) [Mass/Vol]Ordered By: Fabiola Marinelli on 71-42-5238WPVW (RBC) [Mass/Vol] MCHC [Mass/volume] by Automated count32.0-35.0[facility] MCV Auto (RBC) [Entitic vol]Ordered By: Fabiola Marinelli on 14-44-2229SHF (RBC) [Entitic vol]MCV [Entitic volume] by Automated ubrns28-563CvvnvacorChildren'S Hospital For RehabilitationMonocytes Auto (Bld) [#/Vol]Ordered By: Fabiola Marinelli on 12-07-2024 Monocytes (Bld) [#/Vol]Automated blood monocyte count0.0-0.8[facility] Hospital For RehabilitationMonocytes/100 WBC Auto (Bld)Ordered By: Fabiola Marinelli on 12-07-2024 Monocytes/100 WBC (Bld)Automated monocyte %.[facility] Neutrophils Auto (Bld) [#/Vol]Ordered By: Fabiola Marinelli on 02-79-7858Wisujipkjek (Bld) [#/Vol]Neutrophils [#/volume] in Blood by Automated countLow1.8-7.7 [facility] For RehabilitationNeutrophils/100 WBC Auto (Bld)Ordered By: Fabiola Marinelli on 23-34-3393Nimnnbqdmqv/100 WBC (Bld)Automated neutrophil %.[facility] For RehabilitationNo Panel InformationOrdered By: Fabiola Marinelli on 12-07-2024> 60.0 mL/MinChildren'S Hospital For Rehabilitation57.06[facility] For RehabilitationNucleated erythrocytes [Presence] in Blood by Automated countOrdered By: Fabiola Marinelli on 00-77-4013Meabkcogo RBC Auto Ql (Bld)Nucleated erythrocytes [Presence] in Blood by Automated count0-0.5FOhioHealth Arthur G.H. [facility], MD, Cancer Center Ovalocytes [Presence] in Blood by Light microscopyOrdered By: Fabiola Marinelli on 88-99-8896Jefkvxejxx LM Ql (Bld)Ovalocyte detectionChildren'S Hospital For RehabilitationPlatelet adequacy [Presence] in Blood by Light microscopyOrdered By: Fabiola Marinelli on 70-04-4307Swgkdrbmv LM Ql (Bld)Platelet adequacy [Presence] in Blood by Light microscopyNoLutheran HospitalPlatelet mean volume Auto (Bld) [Entitic vol]Ordered By: Fabiola Marinelli on 75-50-6038Pbuxqhii mean volume (Bld) [Entitic vol]Platelet mean volume [Entitic volume] in Blood by Automated count6.3-10.7FOhioHealth Arthur G.H. Bing, MD, Cancer CenterPlatelet morphology finding [Identifier] in BloodOrdered By: Fabiola Marinelli on 19-03-5621Zrsqgunx morphology finding Nom (Bld)Platelet morphology finding [Identifier] in BloodNormal [facility] Hospital For RehabilitationPlatelets Auto (Bld) [#/Vol]Ordered By: Fabiola Marinelli on 89-21-8385Wuptauszc (Bld) [#/Vol]Platelets [#/volume] in Blood by Automated yjveyExp182-201WjczwlgiyChildren'S Hospital For RehabilitationPoikilocytosis [Presence] in Blood by Light microscopyOrdered By: Fabiola Marinelli on 12-07-2024 Poikilocytosis LM Ql (Bld)Poikilocytosis [Presence] in Blood by Light microscopy [facility] Hospital For RehabilitationPolychromasia [Presence] in Blood by Light microscopyOrdered By: Fabiola Marinelli on 37-04-6704Mgzsrqrclitzo LM Ql (Bld) Polychromasia [Presence] in Blood by Light microscopyChildren'S Hospital For RehabilitationPotassium [Moles/volume] in Serum or PlasmaOrdered By: Fabiola Marinelli on 47-11-8988Ackijgopm [Moles/Vol]Potassium [Moles/volume] in Serum or Plasma 3.5-5.1FOhioHealth Arthur G.H. Bing, MD, Cancer CenterProtein [Mass/volume] in Serum or Plasma Ordered By: Fabiola Marinelli on 77-94-3231Jksxllz [Mass/Vol]Protein [Mass/volume] in Serum or PlasmaLow6.4-8.9Children'S Hospital For RehabilitationRBC Auto (Bld) [#/Vol] Ordered By: Fabiola Marinelli on 52-57-7893RBG (Bld) [#/Vol]Erythrocytes [#/volume] in Blood by Automated countLow3.60-5.00Summa Healthcan and CBCon 96-41-8157Tuflngutcksq Ql (Bld)[facility] Comment on above:Performed By: #### SCAN CBC ####[facility] [address] [place] [address] USABasophils (Bld) [#/Vol]0.0 10*3/uL Normal0.0-0.2The [facility]ian Physician GroupComment on above:Performed By: #### SCAN CBC ####[facility] [address] [place] [address] USABasophils/100 WBC (Bld)0.3 %Normal.The [facility] Physician GroupComment on above:Performed By: #### SCAN CBC ####[facility] [place] [address] USAEosinophils (Bld) [#/Vol]0.0 10*3/uLNormal0.0-0.45 The [facility] Physician GroupComment on above:Performed By: #### SCAN CBC ####[place] [address] [place] Eosinophils/100 WBC (Bld)0.2 %Normal.The [facility] Physician GroupComment on above:Performed By: #### SCAN CBC ####[place] [address] USAErythrocyte distribution width (RBC) [Ratio]20.3 % High11.9-15.3The [facility]ian Physician GroupComment on above:Performed By: #### SCAN CBC ####[place] [address] USAHematocrit (Bld) [Volume fraction]27.9 %Low34.0-46.4The [facility] Physician GroupComment on above:Performed By: #### SCAN CBC ####[place] [address] USAHemoglobin (Bld) [Mass/Vol]9.2 g/dLLow 11.8-15.4The [facility] Physician GroupComment on above:Performed By: #### SCAN CBC ####[place] [address] [place] HypochromasiaSlightNormalThe [facility] Physician GroupComment on above:Performed By: #### SCAN CBC ####[place] [address] USALymphocytes (Bld) [#/Vol]0.4 10*3/uLLow1.00-4.8The [facility] Physician GroupComment on above:Performed By: #### SCAN CBC ####[place] [address] USALymphocytes/100 WBC (Bld)20.5 %Normal.The [facility] Physician GroupComment on above:Performed By: #### SCAN CBC ####[place] [address] USAMCH (RBC) [Entitic mass]27.2 lgEqvhfg58.7-34.3The [facility] Physician GroupComment on above:Performed By: #### SCAN CBC ####[place] [address] USAMCV (RBC) [Entitic vol]82.6 fLNormal 80-100The [facility] Physician GroupComment on above:Performed By: #### SCAN CBC ####[place] [address] USAMean Corpuscular HGB Conc33.0 g/yLFcvlfu54.0-35.0The [facility] Physician GroupComment on above:Performed By: #### SCAN CBC ####[place] [address] USAMonocytes (Bld) [#/Vol]0.4 10*3/uLNormal 0.0-0.8The [facility] Physician GroupComment on above:Performed By: #### SCAN CBC ####[place] [address] [place] Monocytes/100 WBC (Bld)22.6 %Normal.The [facility] Physician GroupComment on above:Performed By: #### SCAN CBC ####[place] [address] USANeutrophils (Bld) [#/Vol]1.1 10*3/uLLow1.8-7.7The [facility] Physician GroupComment on above:Performed By: #### SCAN CBC ####[place] [address] [place] Neutrophils/100 WBC (Bld)56.4 %Normal.The [facility] Physician GroupComment on above:Performed By: #### SCAN CBC ####[place] [address] USANRBC%0.0 /100{WBC}Normal0-0.5The [facility] Physician GroupComment on above:Performed By: #### SCAN CBC ####[place] [address] USAOvalocytesSlightNormalThe [facility]ian Physician GroupComment on above:Performed By: #### SCAN CBC ####[facility] [place] [address] [place] Platelet EstimateDecreasedNormalSt. Vincent's Medical Center Southside Physician GroupComment on above:Performed By: #### SCAN CBC ####[address] [address] USAPlatelet mean volume (Bld) [Entitic vol]7.7 fLNormal 6.3-10.7The [facility] Physician GroupComment on above:Performed By: #### SCAN CBC ####[address] [address] [place] Platelet MorphologyNormalNormalNoCritical access hospital Physician GroupComment on above:Result Comment: PERFORMED BY:[address] [place], [place] [phone] MEDICAL DIRECTORTAVIA HORAN M.D.Performed By: #### SCAN CBC ####[address] [address] USAPlatelets (Bld) [#/Vol]45 10*3/hWGiq941-774Ebx [facility] Physician GroupComment on above:Performed By: #### SCAN CBC ####[address] [address] [facility]ENTERB PoikilocytosisSAtrium Health Union West Physician GroupComment on above: Performed By: #### SCAN CBC ####[address] [address] USAPolychromasiaSlightSt. Vincent's Medical Center Southside Physician GroupComment on above:Performed By: #### SCAN CBC ####[address] [address] USARBC (Bld) [#/Vol]3.38 10*6/uLLow 3.60-5.00The [facility] Physician GroupComment on above:Performed By: #### SCAN CBC ####[address] [address] [place] Toxic GranulationModerateNoCritical access hospital Physician GroupComment on above: Performed By: #### SCAN CBC ####[facility] [address] [place] [address] USAWBC (Bld) [#/Vol]1.9 10*3/uLLow3.8-11.6The [facility] Physician GroupComment on above:Performed By: #### SCAN CBC ####[facility] [address] [place] [address] USASerum or plasma albumin/globulin mass ratioOrdered By: Fabiola Marinelli on 86-31-0587Apjhiqc/Globulin [Mass ratio]Serum or plasma albumin/globulin mass ratioSumma Healtherum or plasma anion gap determinationOrdered By: Fabiola Marinelli on 74-51-0876Onqrl gap [Moles/Vol]Serum or plasma anion gap determination6.0-15.0 Summa Healthodium [Moles/volume] in Serum or PlasmaOrdered By: Fabiola Marinelli on 60-40-2385Slvnpq [Moles/Vol]Sodium [Moles/volume] in Serum or Nemnka276-371YrhknhpkgChildren'S Hospital For RehabilitationUrea nitrogen [Mass/volume] in Serum or PlasmaOrdered By: Fabiola Marinelli on 26-30-5018Ngev nitrogen [Mass/Vol]Urea nitrogen [Mass/volume] in Serum or Plasma7-25[facility] WBC Auto (Bld) [#/Vol]Ordered By: Fabiola Marinelli on 42-40-8485KSQ (Bld) [#/Vol] Leukocytes [#/volume] in Blood by Automated countLow3.8-11.6FOhioHealth Arthur G.H. Bing, MD, Cancer CenterAnoscopyon 56-94-8281SteifMATT Dao 11/28/2024 1:25 PM Anoscopy Date/Time: 11/28/2024 1:22 PM Performed by: MATT Dao Authorized by: MATT Dao Consent: Consent obtained: Verbal Consent given by: Patient Risks, benefits, and alternatives were discussed: yes Sibley protocol: Procedure explained and questions answered to patient or proxy's satisfaction: yes Patient identity confirmed: Verbally with patient Post-procedure details: Procedure completion: Tolerated Comments: E has small circumferential external hemorrhoids that are tender. No active bleeding. Limited LYLA, d/t pain but you can feel the enlarged internal hemorrhoids.[facility] Work Phone: [facility] Work Phone: IMMUNOGLOBULINS A/G/M, QN, SERon 11-17-2024 IMMUNOGLOBULIN A, SERUMmg/dLLow87 - 352 mg/dLMercy Hospital St. LouisComment on above: Result confirmed on concentration.IMMUNOGLOBULIN G430 mg/eTUcl629 - 1602 mg/dL NOMS HealthcareIMMUNOGLOBULIN M, SERUM5 mg/dLLow26 - 217 mg/dLMercy Hospital St. Louis Comment on above:Result confirmed on concentration. Performed at: [address] [id number] Door Glass Installer: Lang Knight PhD, Phone: [phone] Interpretation and review of laboratory resultsAbnoStoughton HospitalAlanine aminotransferase [Enzymatic activity/volume] in Serum or PlasmaOrdered By: Fabiola Marinelli on 42-29-3076ECH [Catalytic activity/Vol]Alanine aminotransferase [Enzymatic activity/volume] in Serum or Plasma7-52[facility] For RehabilitationAlbumin [Mass/volume] in Serum or Plasma by Bromocresol green (BCG) dye binding methoOrdered By: Fabiola Marinelli on 16-61-1871Foiyrcq BCG dye [Mass/Vol]Albumin [Mass/volume] in Serum or Plasma by Bromocresol green (BCG) dye binding metho3.5-5.7FOhioHealth Arthur G.H. Bing, MD, Cancer CenterAlkaline phosphatase [Enzymatic activity/volume] in Serum or PlasmaOrdered By: Fabiola Marinelli on 01-53-4421VAE [Catalytic activity/Vol]Alkaline phosphatase [Enzymatic activity/volume] in Serum or Rvpwvw50-429MtoragjaiChildren'S Hospital For Rehabilitation Anisocytosis LM Ql (Bld)Ordered By: Fabiola Marinelli on 70-27-0400Hyvuunwvygjp Ql (Bld) Anisocytosis [Presence] in Blood by Light microscopyChildren'S Hospital For RehabilitationAspartate aminotransferase [Enzymatic activity/volume] in Serum or Plasma Ordered By: Fabiola Marinelli on 50-85-9556XKW [Catalytic activity/Vol]Aspartate aminotransferase [Enzymatic activity/volume] in Serum or Fujxvo12-10NgpyyynjsChildren'S Hospital For RehabilitationBasophils Auto (Bld) [#/Vol]Ordered By: Fabiola Marinelli on 80-34-2378Qkqocgaui (Bld) [#/Vol]Automated basophil count0.0-0.2FOhioHealth Arthur G.H. Bing, MD, Cancer CenterBasophils/100 WBC Auto (Bld)Ordered By: Fabiola Marinelli on 29-74-3398Rxhmxzptr/100 WBC (Bld)Automated basophil %.Children[facility] Hospital For RehabilitationBilirubin.total [Mass/volume] in Serum or PlasmaOrdered By: Fabiola Marinelli on 29-22-4425Yaijkjiek [Mass/Vol]Bilirubin.total [Mass/volume] in Serum or Plasma 0.3-1.0[facility] For RehabilitationCalcium [Mass/volume] in Serum or Plasma Ordered By: Fabiola Marinelli on 70-81-0800Rlpypll [Mass/Vol]Calcium [Mass/volume] in Serum or Plasma8.6-10.3FOhioHealth Arthur G.H. Bing, MD, Cancer CenterCarbon dioxide, total [Moles/volume] in Serum or PlasmaOrdered By: Fabiola Marinelli on 25-05-8454WR7 [Moles/Vol]Carbon dioxide, total [Moles/volume] in Serum or Niawnq40.0-31.0 [facility] For RehabilitationChloride [Moles/volume] in Serum or Plasma Ordered By: Fabiola Marinelli on 26-61-2875Wovplsxj [Moles/Vol]Chloride [Moles/volume] in Serum or Vkvbxa36-523IrosuyjujChildren'S Hospital For RehabilitationComprehensive Metabolic Panelon 58-14-6090Actmowx [Mass/Vol]3.7 g/dLNormal3.5-5.7The [facility] Physician GroupComment on above:Performed By: #### SCAN CBC, CMP ####[facility] [address] [place] [address] USAAlbumin/Globulin [Mass ratio]1.9 {ratio}NormalThe [facility]alachian Physician GroupComment on above: Performed By: #### SCAN CBC, CMP ####[facility] [address] [place] [address] USAALP [Catalytic activity/Vol]81 U/VOvmlge49-512Rtu [facility] Physician GroupComment on above:Performed By: #### SCAN CBC, CMP ####[facility] [place] [address] USAALT [Catalytic activity/Vol]12 U/LNormal7-52The [facility] Physician GroupComment on above:Performed By: #### SCAN CBC, CMP ####[place] [address] [place] [address] USAAnion gap [Moles/Vol]10.0 mmol/LNormal6.0-15.0 The [facility] Physician GroupComment on above:Performed By: #### SCAN CBC, CMP ####[place] [address] [place] [address] USAAST [Catalytic activity/Vol]27 U/BOdbvrk49-73Jrt [facility] Physician GroupComment on above:Performed By: #### SCAN CBC, CMP ####[place] [address] [place] [address] USABilirubin [Mass/Vol]0.9 mg/dLNormal0.3-1.0The [facility] Physician GroupComment on above:Performed By: #### SCAN CBC, CMP ####[place] [address] [place] [address] USACalcium [Mass/Vol]8.9 mg/dLNormal8.6-10.3The [facility] Physician GroupComment on above: Performed By: #### SCAN CBC, CMP ####[address] [address] USAChloride [Moles/Vol]102 mmol/XPsmhty15-664Sfo [facility] Physician GroupComment on above:Performed By: #### SCAN CBC, CMP ####[address] [address] USACO2 [Moles/Vol]29.2 mmol/YBzmrhq38.0-31.0The [facility]ian Physician GroupComment on above:Performed By: #### SCAN CBC, CMP ####[address] [address] USACreatinine [Mass/Vol]1.08 mg/dLNormal0.60-1.20 The [facility] Physician GroupComment on above:Performed By: #### SCAN CBC, CMP ####[place] [address] [place] [address] [place] Creatinine Clr Calc Mkhdpmjj84.05NoCritical access hospital Physician GroupComment on above:Result Comment: PERFORMED BY:[address] [place], [place] [phone] MEDICAL DIRECTORTAVIA HORAN M.D.Performed By: #### SCAN CBC, CMP ####[place] [address] USAEstimated GFR56.300 mL/MinNoCritical access hospital Physician GroupComment on above:Performed By: #### SCAN CBC, CMP ####[place] [address] [place] Globulin (S) [Mass/Vol]2.0 g/dLSt. Vincent's Medical Center Southside Physician GroupComment on above:Performed By: #### SCAN CBC, CMP ####[place] [address] USAGlucose [Mass/Vol]115 mg/mGXisr40-428Gxv [facility] Physician GroupComment on above:Result Comment: Random Glucose Reference Range is dependent on time and content of last meal. Glucose of more than 200 mg/dL in a nonstressed, ambulatory subject supports the diagnosis of Diabetes Mellitus. ADA recommended reference rangePerformed By: #### SCAN CBC, CMP ####[place] [address] [place] Potassium [Moles/Vol]4.2 mmol/LNormal3.5-5.1The [facility] Physician GroupComment on above:Performed By: #### SCAN CBC, CMP ####[place] [id number] USAProtein [Mass/Vol]5.7 g/dLLow6.4-8.9 The [facility] Physician GroupComment on above:Performed By: #### SCAN CBC, CMP ####[place] [address] USASodium [Moles/Vol]137 mmol/ZVrqray880-838Kae [facility] Physician GroupComment on above: Performed By: #### SCAN CBC, CMP ####[facility] [address] [place] [address] USAUrea nitrogen [Mass/Vol]16 mg/dLNormal7-25The [facility] Physician GroupComment on above:Performed By: #### SCAN CBC, CMP ####[facility] [address] [place] [id number] [facility] CENTERB Comprehensive metabolic panelon 77-33-1683Tyfifyn [Mass/Vol]3.7 g/dL3.5 - 5.7 g/dLNOAR HealthcareAlbumin/Globulin [Mass ratio]1.9 {ratio}NOMS HealthcareALP [Catalytic activity/Vol]81 U/L34 - 104 U/LNOMS HealthcareALT [Catalytic activity/Vol]12 U/L7 - 52 U/LNOMS HealthcareAnion gap [Moles/Vol]10 mmol/L6.0 - 15.0 meq/LNOMS HealthcareAST [Catalytic activity/Vol]27 U/L13 - 39 U/LNOMS HealthcareBilirubin [Mass/Vol]0.9 mg/dL0.3 - 1.0 mg/dLNOMS HealthcareCalcium [Mass/Vol]8.9 mg/dL8.6 - 10.3 mg/dLNOAR HealthcareChloride [Moles/Vol]102 mmol/L 98 - 107 mmol/LNOMS HealthcareCO2 [Moles/Vol]29.2 mmol/L21.0 - 31.0 mmol/LNOMS HealthcareCreatinine (U) [Mass/Vol]1.08 mg/dL0.60 - 1.20 mg/dLNOAR Healthcare CREATININE CLR CALC YCRUENLP17.05NOAR HealthcareGFR/1.73 sq M.predicted MDRD (S/P/Bld) [Vol rate/Area]56.3 mL/min/{1.73_m2}mL/MinNOAR HealthcareGlobulin (S) [Mass/Vol]2 g/dLNOAR HealthcareGlucose [Mass/Vol]115 mg/rKEloa57 - 100 mg/dLNOAR HealthcareComment on above:Random Glucose Reference Range is dependent on time and content of last meal. Glucose of more than 200 mg/dL in a nonstressed, ambulatory subject supports the diagnosis of Diabetes Mellitus. ADA recommended reference range Interpretation and review of laboratory resultsAbnormalNOMS HealthcarePotassium [Moles/Vol]4.2 mmol/L3.5 - 5.1 mmol/LNOMS HealthcareProtein [Mass/Vol]5.7 g/dL Low6.4 - 8.9 g/dLNOAR HealthcareSodium [Moles/Vol]137 mmol/L136 - 145 mmol/LNOMS HealthcareUrea nitrogen [Mass/Vol]16 mg/dL7 - 25 mg/dLNOAR HealthcareNOMS HealthcareCreatinine [Mass/volume] in Serum or PlasmaOrdered By: Fabiola Marinelli on 83-39-7163Zesoeolczi [Mass/Vol]Creatinine [Mass/volume] in Serum or Plasma 0.60-1.20[facility] For RehabilitationEosinophils Auto (Bld) [#/Vol]Ordered By: Fabiola Marinelli on 30-19-6220Xaulawmavof (Bld) [#/Vol]Automated eosinophil count High0.0-0.45[facility] For RehabilitationEosinophils/100 WBC Auto (Bld) Ordered By: Fabiola Marinelli on 65-41-4023Kgzagxpxjlf/100 WBC (Bld)Automated eosinophil %.[facility] For RehabilitationErythrocyte distribution width Auto (RBC) [Ratio]Ordered By: Fabiola Marinelli on 02-92-6217Henpvmotvjh distribution width (RBC) [Ratio]Erythrocyte distribution width [Ratio] by Automated erpnnZdtw96.9-15.3 [facility] For RehabilitationErythrocyte morphology finding [Identifier] in BloodOrdered By: Fabiola Marinelli on 17-64-2509RXM morphology finding Nom (Bld)RBC morphologyChildren'S Hospital For RehabilitationGlobulin Calc (S) [Mass/Vol]Ordered By: Fabiola Marinelli on 00-18-5920Udmzgliv (S) [Mass/Vol]Serum globulin measurement by calculation (mass/volume)[facility] For RehabilitationGlucose [Mass/volume] in Serum or PlasmaOrdered By: Fabiola Marinelli on 48-39-1898Sfcpase [Mass/Vol]Glucose [Mass/volume] in Serum or HflydxKfkz79-187MxyaghrulChildren'S Hospital For Rehabilitation Hematocrit Auto (Bld) [Volume fraction]Ordered By: Fabiola Marinelli on 11-16-2024 Hematocrit (Bld) [Volume fraction]Hematocrit [Volume Fraction] of Blood by Automated nhlupAjd72.0-46.4FOhioHealth Arthur G.H. Bing, MD, Cancer CenterHemoglobin [Mass/volume] in BloodOrdered By: Fabiola Marinelli on 41-87-8475Hyqigbzcib (Bld) [Mass/Vol]Hemoglobin [Mass/volume] in IagoeZht84.8-15.4FOhioHealth Arthur G.H. Bing, MD, Cancer CenterImmunoglobulins A/G/M, Qn, Seron 94-89-0970Dnjwgzlkubxcka A, Serum <9Mua87-656Sql [facility] Physician GroupComment on above:Result Comment: Result confirmed on concentration.Performed By: #### IMM OSCAR ####[facility] , Immunoglobulin G430 mg/fPGzt346-5088Clg [facility] Physician GroupComment on above:Performed By: #### IMM OSCAR ####[facility] ,Immunoglobulin M, Serum5 mg/iHIxy80-059Npm [facility] Physician GroupComment on above:Result Comment: Result confirmed on concentration. Performed at: - [facility] [id number] Door Glass Installer: Lang Knight PhD, Phone: [phone] BY:[address] [place], [place] [phone] MEDICAL DIRECTORMOSRI HORAN M.D.Performed By: #### IMM OSCAR ####[facility] ,Leukocytes [#/volume] corrected for nucleated erythrocytes in Blood by Automated coun Ordered By: Fabiola Marinelli on 65-64-0323FZC corrected for nucl RBC Auto (Bld) [#/Vol] Leukocytes [#/volume] corrected for nucleated erythrocytes in Blood by Automated counLow3.8-11.6FOhioHealth Arthur G.H. Bing, MD, Cancer CenterLymphocytes Auto (Bld) [#/Vol] Ordered By: Fabiola Marinelli on 63-11-3572Zdaqznhlckp (Bld) [#/Vol]Lymphocytes [#/volume] in Blood by Automated countLow1.00-4.8[facility] For RehabilitationLymphocytes/100 WBC Auto (Bld)Ordered By: Fabiola Marinelli on 11-16-2024 Lymphocytes/100 WBC (Bld)Lymphocytes/100 leukocytes in Blood by Automated count. [facility] For RehabilitationMCH Auto (RBC) [Entitic mass]Ordered By: Fabiola Marinelli on 36-05-3276JTC (RBC) [Entitic mass]MCH [Entitic mass] by Automated count 24.7-34.3FOhioHealth Arthur G.H. Bing, MD, Cancer CenterMCHC Auto (RBC) [Mass/Vol]Ordered By: Fabiola Marinelli on 08-57-3264TWHU (RBC) [Mass/Vol]MCHC [Mass/volume] by Automated count32.0-35.0[facility] For RehabilitationMCV Auto (RBC) [Entitic vol] Ordered By: Fabiola Marinelli on 75-35-9275ISQ (RBC) [Entitic vol]MCV [Entitic volume] by Automated bfenw22-802QsaueocztChildren'S Hospital For RehabilitationMonocytes Auto (Bld) [#/Vol]Ordered By: Fabiola Marinelli on 58-41-0610Kpcxdlvuh (Bld) [#/Vol]Automated blood monocyte count0.0-0.8[facility] For RehabilitationMonocytes/100 WBC Auto (Bld)Ordered By: Fabiola Marinelli on 12-10-5345Wnamnsdil/100 WBC (Bld)Automated monocyte %.[facility] For RehabilitationNeutrophils Auto (Bld) [#/Vol] Ordered By: Fabiola Marinelli on 72-32-7094Lywqamlxyxt (Bld) [#/Vol]Neutrophils [#/volume] in Blood by Automated countLow1.8-7.7FOhioHealth Arthur G.H. Bing, MD, Cancer CenterNeutrophils/100 WBC Auto (Bld)Ordered By: Fabiola Marinelli on 11-16-2024 Neutrophils/100 WBC (Bld)Automated neutrophil %.[facility] For RehabilitationNo Panel InformationOrdered By: Fabiola Marinelli on 46-02-976336.300 mL/Min [facility]50.05[facility] For RehabilitationNucleated erythrocytes [Presence] in Blood by Automated countOrdered By: Fabiola Marinelli on 71-47-5240Oqixktplt RBC Auto Ql (Bld)Nucleated erythrocytes [Presence] in Blood by Automated count0-0.5FOhioHealth Arthur G.H. Bing, MD, Cancer CenterOvalocytes [Presence] in Blood by Light microscopyOrdered By: Fabiola Marinelli on 74-19-7478Bbrasdulql LM Ql (Bld)Ovalocyte detectionChildren'S Hospital For RehabilitationPlatelet adequacy [Presence] in Blood by Light microscopyOrdered By: Fabiola Marinelli on 11-16-2024 Platelets LM Ql (Bld)Platelet adequacy [Presence] in Blood by Light microscopy NormalChildren'S Hospital For RehabilitationPlatelet mean volume Auto (Bld) [Entitic vol]Ordered By: Fabiola Marinelli on 92-66-3734Jexyqyzf mean volume (Bld) [Entitic vol] Platelet mean volume [Entitic volume] in Blood by Automated count6.3-10.7 [facility] For RehabilitationPlatelets Auto (Bld) [#/Vol]Ordered By: Fabiola Marinelli on 94-74-3373Dkrnticmm (Bld) [#/Vol]Platelets [#/volume] in Blood by Automated ybkhlCya627-905BbjwvoyrvChildren'S Hospital For RehabilitationPoikilocytosis [Presence] in Blood by Light microscopyOrdered By: Fabiola Marinelli on 11-16-2024 Poikilocytosis LM Ql (Bld)Poikilocytosis [Presence] in Blood by Light microscopy [facility] For RehabilitationPotassium [Moles/volume] in Serum or Plasma Ordered By: Fabiola Marinelli on 28-21-8211Cxnicwtvg [Moles/Vol]Potassium [Moles/volume] in Serum or Plasma3.5-5.1FOhioHealth Arthur G.H. Bing, MD, Cancer CenterProtein [Mass/volume] in Serum or PlasmaOrdered By: Fabiola Marinelli on 36-91-6797Ilwwtoq [Mass/Vol]Protein [Mass/volume] in Serum or PlasmaLow6.4-8.9[facility] For RehabilitationRBC Auto (Bld) [#/Vol]Ordered By: Fabiola Marinelli on 19-71-5821MTS (Bld) [#/Vol] Erythrocytes [#/volume] in Blood by Automated count3.60-5.00Summa Healthcan and CBCon 07-04-4257Aylruurrkfjy Ql (Bld)ModerateNormMiddletown Hospitale [facility] Physician GroupComment on above:Performed By: #### SCAN CBC, CMP ####[facility] [address] Basophils (Bld) [#/Vol]0.0 10*3/uLNormal0.0-0.2The [facility] Comment on above:Performed By: #### SCAN CBC, CMP ####[place] [address] USABasophils/100 WBC (Bld)0.5 %Normal. The [facility]ian Physician GroupComment on above:Performed By: #### SCAN CBC, CMP ####[place] [address] [place] Eosinophils (Bld) [#/Vol]0.6 10*3/uLHigh0.0-0.45The [facility] Comment on above:Performed By: #### SCAN CBC, CMP ####[place] [address] USAEosinophils/100 WBC (Bld)28.6 %Normal .The [facility] Physician GroupComment on above:Performed By: #### SCAN CBC, CMP ####[address] Erythrocyte distribution width (RBC) [Ratio]19.4 %High11.9-15.3The [facility] Physician GroupComment on above:Performed By: #### SCAN CBC, CMP ####[place] [address] USAHematocrit (Bld) [Volume fraction]29.5 %Low34.0-46.4The [facility]ician GroupComment on above:Performed By: #### SCAN CBC, CMP ####[place] [address] USAHemoglobin (Bld) [Mass/Vol]9.7 g/dLLow 11.8-15.4The [facility] GroupComment on above:Performed By: #### SCAN CBC, CMP ####[place] [address] USALymphocytes (Bld) [#/Vol]0.5 10*3/uLLow1.00-4.8The [facility] Comment on above:Performed By: #### SCAN CBC, CMP ####[place] [address] USALymphocytes/100 WBC (Bld)22.6 %Normal .The [facility] GroupComment on above:Performed By: #### SCAN CBC, CMP ####[address] (RBC) [Entitic mass]26.8 nmMrzhrl29.7-34.3The [facility] GroupComment on above:Performed By: #### SCAN CBC, CMP ####[address] (RBC) [Entitic vol]81.3 wNTcvfcp33-612Dck [facility] GroupComment on above:Performed By: #### SCAN CBC, CMP ####[place] [address] USAMean Corpuscular HGB Conc33.0 g/xWXbtsxo49.0-35.0The [facility] GroupComment on above:Performed By: #### SCAN CBC, CMP ####[place] [address] USAMonocytes (Bld) [#/Vol]0.5 10*3/uLNormal 0.0-0.8The [facility] GroupComment on above:Performed By: #### SCAN CBC, CMP ####[place] [address] USAMonocytes/100 WBC (Bld)22.9 %Normal.The [facility] GroupComment on above:Performed By: #### SCAN CBC, CMP ####[place] [address] USANeutrophils (Bld) [#/Vol]0.6 10*3/uLLow1.8-7.7 The [facility] GroupComment on above:Performed By: #### SCAN CBC, CMP ####[place] [address] [place] Neutrophils/100 WBC (Bld)25.4 %Normal.The [facility] GroupComment on above:Performed By: #### SCAN CBC, CMP ####[address] [address] USANRBC%0.0 /100{WBC}Normal0-0.5The [facility] GroupComment on above:Performed By: #### SCAN CBC, CMP ####[address] [address] USAOvalocytesSlight NormalThe [facility] HospitalComment on above:Performed By: #### SCAN CBC, CMP ####[address] [address] [place] Platelet EstimateDecreasedNormalNoCritical access hospital Physician [facility] HospitalComment on above:Performed By: #### SCAN CBC, CMP ####[address] [address] USAPlatelet mean volume (Bld) [Entitic vol]8.3 fL Normal6.3-10.7The [facility] HospitalComment on above:Performed By: #### SCAN CBC, CMP ####[address] [address] USAPlatelet MorphologyNormalNormalNoCritical access hospital Physician [facility] Comment on above:Result Comment: PERFORMED BY:[address] TSERINGoRbertoErnaMOWEAQUA, [place] [phone] MEDICAL DIRECTORTAVIA SCHMIDT M.D.Performed By: #### SCAN CBC, CMP ####[address] [address] [place] Platelets (Bld) [#/Vol]51 10*3/xOEuo338-702Xaa [facility] GroupComment on above:Performed By: #### SCAN CBC, CMP ####[address] [address] USAPoikilocytosisSlightNormShorePoint Health Punta Gorda Physician [facility] HospitalComment on above:Performed By: #### SCAN CBC, CMP ####[address] [address] USARBC (Bld) [#/Vol]3.62 10*6/uLNormal3.60-5.00The [facility] GroupComment on above:Performed By: #### SCAN CBC, CMP ####[facility] [address] [place] [address] USAWBC (Bld) [#/Vol]2.2 10*3/uLLow3.8-11.6The [facility] GroupComment on above:Performed By: #### SCAN CBC, CMP ####[facility] [address] [place] [address] USASerum or plasma IgA measurement (mass/volume)Ordered By: Fabiola Marinelli on 88-38-4489KjU [Mass/Vol]IgA [Mass/volume] in Serum or VuvaabOfu93-992KtmbbsvnxSumma Healtherum or plasma IgG measurement (mass/volume)Ordered By: Fabiola Marinelli on 22-68-2298NlH [Mass/Vol]IgG [Mass/volume] in Serum or RykofjHkp206-8089ThqewnvtcSumma Healtherum or plasma IgM measurement (mass/volume)Ordered By: Fabiola Marinelli on 49-94-2334DjG [Mass/Vol]IgM [Mass/volume] in Serum or WqpdfaBnp15-917 Summa Healtherum or plasma albumin/globulin mass ratio Ordered By: Fabiola Marinelli on 17-60-8964Xkunltf/Globulin [Mass ratio]Serum or plasma albumin/globulin mass ratioSumma Healtherum or plasma anion gap determinationOrdered By: Fabiola Marinelli on 53-99-9031Ldypw gap [Moles/Vol] Serum or plasma anion gap determination6.0-15.0[facility] Sodium [Moles/volume] in Serum or PlasmaOrdered By: Fabiola Marinelli on 11-16-2024 Sodium [Moles/Vol]Sodium [Moles/volume] in Serum or Zrssdb296-883OktxnpwchChildren'S Hospital For RehabilitationUrea nitrogen [Mass/volume] in Serum or PlasmaOrdered By: Fabiola Marinelli on 37-26-8496Tctj nitrogen [Mass/Vol]Urea nitrogen [Mass/volume] in Serum or Plasma7-25[facility] For RehabilitationWBC Auto (Bld) [#/Vol] Ordered By: Fabiola Marinelli on 36-35-7971FWB (Bld) [#/Vol]Leukocytes [#/volume] in Blood by Automated countLow3.8-11.6FOhioHealth Arthur G.[facility]. [facility], [facility], Cancer Center Comprehensive Metabolic Panelon 63-37-2767Iajtlnt [Mass/Vol]3.6 g/dLNormal 3.5-5.7The [facility] GroupComment on above:Performed By: #### CMP ####[address] [address] [place] Albumin/Globulin [Mass ratio]1.9 {ratio}NormalThe [facility] Comment on above:Performed By: #### CMP ####[address] [address] USAALP [Catalytic activity/Vol]84 U/HUgbzwk40-835 The [facility]ician GroupComment on above:Performed By: #### CMP ####[address] [address] USAALT [Catalytic activity/Vol]12 U/LNormal7-52The [facility] GroupComment on above:Performed By: #### CMP ####[address] [address] USAAnion gap [Moles/Vol]11.6 mmol/LNormal6.0-15.0The [facility] GroupComment on above:Performed By: #### CMP ####[address] [address] USAAST [Catalytic activity/Vol]26 U/XHhlonm37-86Xjz [facility] GroupComment on above: Performed By: #### CMP ####[address] [address] USABilirubin [Mass/Vol]0.8 mg/dLNormal0.3-1.0The [facility] GroupComment on above:Performed By: #### CMP ####[address] [address] USACalcium [Mass/Vol]8.7 mg/dLNormal8.6-10.3The [facility] GroupComment on above:Performed By: #### CMP ####[address] [address] USAChloride [Moles/Vol]105 mmol/VLkrykw15-640Gny [facility] Comment on above:Performed By: #### CMP ####[address] [address] USACO2 [Moles/Vol]28.5 mmol/WWeqlko05.0-31.0The [facility] HospitalComment on above:Performed By: #### CMP ####[address] [address] USACreatinine [Mass/Vol] 1.12 mg/dLNormal0.60-1.20The [facility] HospitalComment on above:Performed By: #### CMP ####[place] [address] USACreatinine Clr Calc Amgxhedw26.40NoCritical access hospital Physician [facility] Comment on above:Result Comment: PERFORMED BY:[address] TSERINGRobertoErnaROMA, [place] [phone] MEDICAL DIRECTORTAVIA SCHMIDT M.D.Performed By: #### CMP ####[address] [address] USAEstimated GFR53.896 mL/Min NormalThe [facility] HospitalComment on above:Performed By: #### CMP ####[address] [address] [place] Globulin (S) [Mass/Vol]1.9 g/dLSt. Vincent's [facility] Physician [facility] HospitalComment on above:Performed By: #### CMP ####[address] [address] USAGlucose [Mass/Vol]117 mg/pEWqmi48-434Eht [facility] GroupComment on above:Result Comment: Random Glucose Reference Range is dependent on time and content of last meal. Glucose of more than 200 mg/dL in a nonstressed, ambulatory subject supports the diagnosis of Diabetes Mellitus. ADA recommended reference rangePerformed By: #### CMP ####[place] [address] USAPotassium [Moles/Vol]4.1 mmol/LNormal3.5-5.1The [facility] GroupComment on above:Performed By: #### CMP ####[place] [address] [place] [id number] USAProtein [Mass/Vol]5.5 g/dLLow6.4-8.9The [facility] GroupComment on above:Performed By: #### CMP ####[place] [address] USASodium [Moles/Vol]141 mmol/PNpdvro404-931Zfz [facility] GroupComment on above:Performed By: #### CMP ####[place] [address] USAUrea nitrogen [Mass/Vol]16 mg/dLNormal7-25The [facility] GroupComment on above: Performed By: #### CMP ####[place] [address] USAComprehensive metabolic panelon 13-15-3266Eswrfen [Mass/Vol]3.6 g/dL3.5 - 5.7 g/dLNOMS HealthcareAlbumin/Globulin [Mass [...] mg/dL0.60 - 1.20 mg/dLNOMS HealthcareCREATININE CLR CALC CQHPDKNU75.4NOAR HealthcareGFR/1.73 sq M.predicted MDRD (S/P/Bld) [Vol rate/Area]53.896 mL/min/{1.73_m2}mL/MinNOAR HealthcareGlobulin (S) [Mass/Vol]1.9 g/dLNOAR HealthcareGlucose [Mass/Vol]117 mg/kFVfsm74 - 100 mg/dLNOAR HealthcareComment on above:Random Glucose Reference Range is dependent on time and content of last meal. Glucose of more than 200 mg/dL in a nonstressed, ambulatory subject supports the diagnosis of Diabetes Mellitus. ADA recommended reference range Interpretation and review of laboratory resultsAbnormalNOAR HealthcarePotassium [Moles/Vol]4.1 mmol/L3.5 - 5.1 mmol/LNOMS HealthcareProtein [Mass/Vol]5.5 g/dL Low6.4 - 8.9 g/dLNOAR HealthcareSodium [Moles/Vol]141 mmol/L136 - 145 mmol/LNOMS HealthcareUrea nitrogen [Mass/Vol]16 mg/dL7 - 25 mg/dLNOAR HealthcareNOAR HealthcareHypochromia LM Ql (Bld)Ordered By: Fabiola Marinelli on 14-26-2203Uucwmdrunwo Ql (Bld)Hypochromia [Presence] in Blood by Light [facility] HealthMicrocytes LM Ql (Bld)Ordered By: Fabiola Marinelli on 10-27-2024 Microcytes Ql (Bld)Microcytes [Presence] in Blood by Light Parkview HealthPlatelet morphology finding [Identifier] in BloodOrdered By: Fbaiola Marinelli on 78-06-0839Qekuqlcm morphology finding Nom (Bld)Platelet morphology finding [Identifier] in BloodNoLutheran Hospital Scan and CBCon 65-17-0944Smhynulsjqib Ql (Bld)ModerateNoShelby Memorial Hospitale [facility] GroupComment on above:Performed By: #### SCAN CBC ####[facility] [address] [place] [address] USABasophils (Bld) [#/Vol]0.0 10*3/uLNormal0.0-0.2The [facility] GroupComment on above: Performed By: #### SCAN CBC ####[address] [address] USABasophils/100 WBC (Bld)0.4 %Normal.The [facility] GroupComment on above:Performed By: #### SCAN CBC ####[address] [address] USAEosinophils (Bld) [#/Vol]0.5 10*3/uLHigh0.0-0.45The [facility] GroupComment on above: Performed By: #### SCAN CBC ####[address] [address] USAEosinophils/100 WBC (Bld)21.2 %Normal.The [facility] GroupComment on above:Performed By: #### SCAN CBC ####[address] [address] USAErythrocyte distribution width (RBC) [Ratio]18.6 %High11.9-15.3The [facility] Comment on above:Performed By: #### SCAN CBC ####[address] [address] USAHematocrit (Bld) [Volume fraction]29.0 %Low34.0-46.4The [facility] GroupComment on above:Performed By: #### SCAN CBC ####[address] [address] USAHemoglobin (Bld) [Mass/Vol]9.3 g/dLLow11.8-15.4The [facility] Comment on above:Performed By: #### SCAN CBC ####[address] [address] USAHypochromasiaSlightNormalThe [facility] GroupComment on above:Performed By: #### SCAN CBC ####[address] [address] USALymphocytes (Bld) [#/Vol]0.5 10*3/uLLow1.00-4.8The [facility] GroupComment on above: Performed By: #### SCAN CBC ####[place] [id number] USALymphocytes/100 WBC (Bld)23.1 %Normal.The [facility] GroupComment on above:Performed By: #### SCAN CBC ####[place] [address] USAMCH (RBC) [Entitic mass]26.0 ifUtxalv21.7-34.3The [facility] GroupComment on above: Performed By: #### SCAN CBC ####[place] [address] USAMCV (RBC) [Entitic vol]81.0 eAWyidgj65-036Ezl [facility] GroupComment on above:Performed By: #### SCAN CBC ####[place] [address] USAMean Corpuscular HGB Conc32.1 g/kUBewzwn72.0-35.0The [facility] GroupComment on above:Performed By: #### SCAN CBC ####[place] [address] USAMicrocytosisSlightNormalThe [facility]ician GroupComment on above:Performed By: #### SCAN CBC ####[place] [address] USAMonocytes (Bld) [#/Vol]0.5 10*3/uLNormal0.0-0.8The [facility] GroupComment on above: Performed By: #### SCAN CBC ####[place] [address] USAMonocytes/100 WBC (Bld)20.8 %Normal.The [facility] GroupComment on above:Performed By: #### SCAN CBC ####[place] [address] USANeutrophils (Bld) [#/Vol]0.8 10*3/uLLow1.8-7.7The [facility] GroupComment on above: Performed By: #### SCAN CBC ####[facility] [place] [address] USANeutrophils/100 WBC (Bld)34.5 %Normal.The [facility] GroupComment on above:Performed By: #### SCAN CBC ####[address] [address] USANRBC%0.1 /100{WBC} Normal0-0.5The [facility] GroupComment on above:Performed By: #### SCAN CBC ####[address] [address] [place] OvalocytesSlightNoCritical access hospital Physician GroupComment on above:Performed By: #### SCAN CBC ####[address] [address] USAPlatelet EstimateDecreasedNormalNoCritical access hospital Physician Group Comment on above:Performed By: #### SCAN CBC ####[address] [address] USAPlatelet mean volume (Bld) [Entitic vol]8.3 fLNormal6.3-10.7The [facility] GroupComment on above:Performed By: #### SCAN CBC ####[address] [address] USAPlatelet MorphologyNormalNormalNormShorePoint Health Punta Gorda Physician Group Comment on above:Result Comment: PERFORMED BY:[address] [place], [place] [phone] MEDICAL DIRECTORTAVIA SCHMIDT M.D.Performed By: #### SCAN CBC ####[address] [address] USAPlatelets (Bld) [#/Vol]49 10*3/fGApx677-291Nsj [facility] GroupComment on above: Performed By: #### SCAN CBC ####[address] [address] USAPoikilocytosisSlightNormShorePoint Health Punta Gorda Physician GroupComment on above:Performed By: #### SCAN CBC ####[place] [address] [place] [address] USARBC (Bld) [#/Vol]3.59 10*6/uLLow 3.60-5.00The [facility] GroupComment on above:Performed By: #### SCAN CBC ####[address] [address] USAWBC (Bld) [#/Vol]2.2 10*3/uLLow3.8-11.6The [facility] GroupComment on above:Performed By: #### SCAN CBC ####[address] [address] USAMR abdomen wo/w conon 73-84-7979HO abdomen wo/w con NormalThe [facility] HospitalDacrocytes [Presence] in Blood by Light microscopyOrdered By: Fabiola Marinelli on 66-46-3614Rtilmhywdi LM Ql (Bld)Teardrop cell detectionChildren'S Hospital For RehabilitationDiff and CBCon 29-81-4404Faogunzionpw Ql (Bld)ModerateNormalThSt. Luke's [facility] Physician GroupComment on above:Performed By: #### DIFF CBC ####[address] [address] USAEosinophils/100 WBC (Bld)18 %High1-3The [facility] Comment on above:Performed By: #### DIFF CBC ####[address] [address] USAErythrocyte distribution width (RBC) [Ratio]18.1 %High11.9-15.3The [facility] GroupComment on above: Performed By: #### DIFF CBC ####[address] [address] USAGiant Platelet Tally1 /100{WBC}NormalThe [facility] GroupComment on above:Performed By: #### DIFF CBC ####[address] [address] USAHematocrit (Bld) [Volume fraction]29.6 %Low34.0-46.4The [facility] GroupComment on above:Performed By: #### DIFF CBC ####[address] [address] USAHemoglobin (Bld) [Mass/Vol]9.6 g/dLLow11.8-15.4The [facility] GroupComment on above:Performed By: #### DIFF CBC ####[address] [address] USA HypochromasiaSlightSt. Vincent's Medical Center Southside Physician GroupComment on above:Performed By: #### DIFF CBC ####[address] [address] USALarge PlateletsSlightSt. Vincent's Medical Center Southside Physician GroupComment on above:Result Comment: PERFORMED BY:[address] TSERINGJunaidMOWEAQUA, [place] [phone] MEDICAL DIRECTORTAVIA HORAN M.D.Performed By: #### DIFF CBC ####[place] [address] USALymphocytes/100 WBC (Bld)29 %Ksrrug94-24Pcp [facility] HospitalComment on above:Performed By: #### DIFF CBC ####[place] [id number] USAMCH (RBC) [Entitic mass]26.1 liPjkpvg71.7-34.3The [facility] GroupComment on above:Performed By: #### DIFF CBC ####[place] [address] USAMCV (RBC) [Entitic vol]80.4 kOQlxpwq08-141Ave [facility] Physician GroupComment on above:Performed By: #### DIFF CBC ####[place] [address] USAMean Corpuscular HGB Conc32.4 g/wJQhnjtp23.0-35.0The [facility] GroupComment on above:Performed By: #### DIFF CBC ####[place] [address] USAMicrocytosisSAtrium Health Union West Physician GroupComment on above:Performed By: #### DIFF CBC ####[address] [address] USAMonocytes/100 WBC (Bld)19 %High2-11[facility] Physician GroupComment on above:Performed By: #### DIFF CBC ####[address] [address] USAOvalocytesSAtrium Health Union West Physician GroupComment on above: Performed By: #### DIFF CBC ####[address] [address] USAPlatelet EstimateDecreasedNormTallahassee Memorial HealthCare Physician GroupComment on above:Performed By: #### DIFF CBC ####[address] [address] USAPlatelet mean volume (Bld) [Entitic vol]8.4 fLNormal6.3-10.7The [facility] GroupComment on above:Performed By: #### DIFF CBC ####[address] [address] USAPlatelets (Bld) [#/Vol]44 10*3/dAAos515-104Pqy [facility] GroupComment on above:Performed By: #### DIFF CBC ####[address] [address] USA PoikilocytosisSAtrium Health Union West Physician GroupComment on above: Performed By: #### DIFF CBC ####[address] [address] USAPolychromasiaSAtrium Health Union West Physician GroupComment on above:Performed By: #### DIFF CBC ####[address] [address] USARBC (Bld) [#/Vol]3.68 10*6/uLNormal 3.60-5.00The [facility] GroupComment on above:Performed By: #### DIFF CBC ####[address] [address] [place] Segmented neutrophils/100 WBC (Bld)35 %Zew56-36Ezx [facility] Comment on above:Performed By: #### DIFF CBC ####[facility] [place] [address] USATear Drop CellsSlightNormalThe [facility] Physician GroupComment on above:Performed By: #### DIFF CBC ####[place] [address] [place] [address] USAWBC (Bld) [#/Vol]1.5 10*3/uLLow3.8-11.6The [facility]ician GroupComment on above:Performed By: #### DIFF CBC ####[place] [address] [place] [address] USAEosinophils/100 WBC Manual cnt (Bld)Ordered By: Fabiola Marinelli on 70-72-9595Kejwooitvit/100 WBC (Bld)Eosinophils/100 leukocytes in Blood by Manual countHigh13FOhioHealth Arthur G.H. Bing, MD, Cancer CenterGiant platelets/100 leukocytes [Ratio] in Blood by Manual countOrdered By: Fabiola Marinelli on 10-18-2024 Giant platelets/100 WBC Manual cnt (Bld) [Ratio]Giant platelets/100 leukocytes [Ratio] in Blood by Manual countChildren'S Hospital For RehabilitationLymphocytes/100 WBC Manual cnt (Bld)Ordered By: Fabiola Marinelli on 38-53-5017Tmeemojjncs/100 WBC (Bld)Lymphocytes/100 leukocytes in Blood by Manual ycmbm07-86WcpucliyuChildren'S Hospital For RehabilitationMonocytes/100 WBC Manual cnt (Bld)Ordered By: Fabiola Marinelli on 58-67-4020Qrsvystbz/100 WBC (Bld)Monocytes/100 leukocytes in Blood by Manual countHigh2-11Children'S Hospital For RehabilitationPlatelets Large [Presence] in Blood by Light microscopyOrdered By: Fabiola Marinelli on 64-40-2665Xawawgcvh Large LM Ql (Bld)Platelets Large [Presence] in Blood by Light microscopyChildren'S Hospital For RehabilitationPlatelets Large LM Ql (Bld)SlightChildren'S Hospital For RehabilitationPolychromasia [Presence] in Blood by Light microscopyOrdered By: Fabiola Marinelli on 25-68-5174Xvyhlkyaxtmal LM Ql (Bld)Polychromasia [Presence] in Blood by Light microscopySumma Healthegmented neutrophils/100 WBC Manual cnt (Bld)Ordered By: Fabiola Marinelli on 73-77-8688Trjrmnisn neutrophils/100 WBC (Bld)Manual blood segmented neutrophils/100 leukocytesLow 50-70Children'S Hospital For RehabilitationComprehensive Metabolic Panelon 10-04-2024 Albumin [Mass/Vol]3.7 g/dLNormal3.5-5.7The [facility] Phys[facility] GroupComment on above:Performed By: #### CMP, SCAN CBC ####[place] [address] [place] [address] USAAlbumin/Globulin [Mass ratio]1.7 {ratio}Normal The [facility] Physician GroupComment on above:Performed By: #### CMP, SCAN CBC ####[address] [address] USAALP [Catalytic activity/Vol]99 U/ZGaewlj36-258Gjl [facility] Phys[facility] GroupComment on above:Performed By: #### CMP, SCAN CBC ####[facility] [address] [place] [address] USAALT [Catalytic activity/Vol]14 U/LNormal7-52 The [facility] Physician GroupComment on above:Performed By: #### CMP, SCAN CBC ####[facility] [address] [place] [address] USAAnion gap [Moles/Vol]10.0 mmol/LNormal6.0-15.0The [facility] Physician GroupComment on above:Performed By: #### CMP, SCAN CBC ####[facility] [address] [place] [address] USAAST [Catalytic activity/Vol]30 U/WAmfxdv79-12 The [facility] Physician GroupComment on above:Performed By: #### CMP, SCAN CBC ####[facility] [address] [place] [address] [place] Bilirubin [Mass/Vol]0.7 mg/dLNormal0.3-1.0The [facility] GroupComment on above:Performed By: #### CMP, SCAN CBC ####[place] [address] [place] [address] USACalcium [Mass/Vol]8.6 mg/dLNormal8.6-10.3The [facility] GroupComment on above:Performed By: #### CMP, SCAN CBC ####[address] [address] [place] Chloride [Moles/Vol]104 mmol/QZiwxfu81-778Jup [facility] GroupComment on above:Performed By: #### CMP, SCAN CBC ####[address] [address] USACO2 [Moles/Vol]29.1 mmol/KPgprpa74.0-31.0The [facility] GroupComment on above:Performed By: #### CMP, SCAN CBC ####[address] [address] [place] Creatinine [Mass/Vol]1.00 mg/dLNormal0.60-1.20The [facility] Comment on above:Performed By: #### CMP, SCAN CBC ####[address] [address] USACreatinine Clr Calc Wpuxogar65.36 NormalThe [facility]ician [facility] HospitalComment on above:Result Comment: PERFORMED BY:[address] [place], [place] [phone] MEDICAL DIRECTORTAVIA SCHMIDT M.D.Performed By: #### CMP, SCAN CBC ####[address] [address] USAGFR/1.73 sq M.predicted MDRD (S/P/Bld) [Vol rate/Area]mL/min/{1.73_m2} NormalThe [facility] Physician GroupComment on above:Performed By: #### CMP, SCAN CBC ####[address] [address] [place] Globulin (S) [Mass/Vol]2.2 g/dLNormalThe [facility] GroupComment on above:Performed By: #### CMP, SCAN CBC ####[place] [address] USAGlucose [Mass/Vol]153 mg/nAXctr82-224Uty [facility] Phys[facility] GroupComment on above:Result Comment: Random Glucose Reference Range is dependent on time and content of last meal. Glucose of more than 200 mg/dL in a nonstressed, ambulatory subject supports the diagnosis of Diabetes Mellitus. ADA recommended reference rangePerformed By: #### CMP, SCAN CBC ####[place] [address] [place] Potassium [Moles/Vol]4.1 mmol/LNormal3.5-5.1The [facility] Physician GroupComment on above:Performed By: #### CMP, SCAN CBC ####[place] [address] USAProtein [Mass/Vol]5.9 g/dLLow6.4-8.9 The [facility]alachian Physician GroupComment on above:Performed By: #### CMP, SCAN CBC ####[place] [address] USASodium [Moles/Vol]139 mmol/VGlerqw559-613Yqz [facility] Physician GroupComment on above: Performed By: #### CMP, SCAN CBC ####[place] [address] USAUrea nitrogen [Mass/Vol]14 mg/dLNormal7-25The [facility]alachian Physician GroupComment on above:Performed By: #### CMP, SCAN CBC ####[address] Comprehensive metabolic panelon 33-24-0543Zdmabgf [Mass/Vol]3.7 g/dL3.5 - 5.7 g/dLNOMS HealthcareAlbumin/Globulin [Mass ratio]1.7 {ratio}NOMS HealthcareALP [Catalytic activity/Vol]99 U/L34 - 104 U/LNOMS HealthcareALT [Catalytic activity/Vol]14 U/L7 - 52 U/LNOMS HealthcareAnion gap [Moles/Vol]10 mmol/L6.0 - 15.0 meq/LNOMS HealthcareAST [Catalytic activity/Vol]30 U/L13 - 39 U/LNOMS HealthcareBilirubin [Mass/Vol]0.7 mg/dL0.3 - 1.0 mg/dLNOMS HealthcareCalcium [Mass/Vol]8.6 mg/dL8.6 - 10.3 mg/dLNOAR HealthcareChloride [Moles/Vol]104 mmol/L 98 - 107 mmol/LNOMS HealthcareCO2 [Moles/Vol]29.1 mmol/L21.0 - 31.0 mmol/LNOMS HealthcareCreatinine (U) [Mass/Vol]1 mg/dL0.60 - 1.20 mg/dLNOOzarks Medical Center CREATININE CLR CALC RIECPQJX65.36NOAR HealthcareESTIMATED GFRmL/MinNOAR HealthcareGlobulin (S) [Mass/Vol]2.2 g/dLNOAR HealthcareGlucose [Mass/Vol]153 mg/jSNzvi57 - 100 mg/dLNOAR HealthcareComment on above:Random Glucose Reference Range is dependent on time and content of last meal. Glucose of more than 200 mg/dL in a nonstressed, ambulatory subject supports the diagnosis of Diabetes Mellitus. ADA recommended reference range Interpretation and review of laboratory resultsAbnormalNOMS HealthcarePotassium [Moles/Vol]4.1 mmol/L3.5 - 5.1 mmol/LNOMS HealthcareProtein [Mass/Vol]5.9 g/dL Low6.4 - 8.9 g/dLNOAR HealthcareSodium [Moles/Vol]139 mmol/L136 - 145 mmol/LNOMS HealthcareUrea nitrogen [Mass/Vol]14 mg/dL7 - 25 mg/dLNORay County Memorial Hospital HealthcareScan and CBCon 54-29-6801Bvxtcrdrgkpj Ql (Bld)ModerateNoCritical access hospital Physician GroupComment on above:Performed By: #### CMP, SCAN CBC ####[facility] [address] [place] [address] [place] Basophils (Bld) [#/Vol]0.0 10*3/uLNormal0.0-0.2The [facility] Comment on above:Performed By: #### CMP, SCAN CBC ####[facility] [address] [place] [address] USABasophils/100 WBC (Bld)0.5 %Normal. The [facility]achian Physician GroupComment on above:Performed By: #### CMP, SCAN CBC ####[address] [address] [place] Eosinophils (Bld) [#/Vol]0.5 10*3/uLHigh0.0-0.45The [facility] Comment on above:Performed By: #### CMP, SCAN CBC ####[address] [address] USAEosinophils/100 WBC (Bld)18.9 %Normal .The [facility]ian Physician GroupComment on above:Performed By: #### CMP, SCAN CBC ####[place] [id number] [place] Erythrocyte distribution width (RBC) [Ratio]17.9 %High11.9-15.3The [facility] Physician GroupComment on above:Performed By: #### CMP, SCAN CBC ####[place] [id number] USAHematocrit (Bld) [Volume fraction]30.4 %Low34.0-46.4The [facility]ian Physician GroupComment on above:Performed By: #### CMP, SCAN CBC ####[place] [id number] USAHemoglobin (Bld) [Mass/Vol]9.9 g/dLLow 11.8-15.4The [facility] Physician GroupComment on above:Performed By: #### CMP, SCAN CBC ####[address] [address] USAHypochromasiaSlightNormalThe [facility]alachian Physician GroupComment on above: Performed By: #### CMP, SCAN CBC ####[address] [address] USALymphocytes (Bld) [#/Vol]0.6 10*3/uLLow1.00-4.8The [facility] Physician GroupComment on above:Performed By: #### CMP, SCAN CBC ####[place] [id number] [place] Lymphocytes/100 WBC (Bld)24.6 %Normal.The [facility] Physician GroupComment on above:Performed By: #### CMP, SCAN CBC ####[address] (RBC) [Entitic mass]26.4 qsLoybda96.7-34.3 The [facility]ian Physician GroupComment on above:Performed By: #### CMP, SCAN CBC ####[address]V (RBC) [Entitic vol]81.4 xNDpkytp31-115Wxv [facility] Physician GroupComment on above:Performed By: #### CMP, SCAN CBC ####[place] [address] USAMean Corpuscular HGB Conc32.4 g/dLNormal 32.0-35.0The [facility] Physician GroupComment on above:Performed By: #### CMP, SCAN CBC ####[place] [address] USAMicrocytosisSlightNormalThe [facility]alachian Physician GroupComment on above: Performed By: #### CMP, SCAN CBC ####[place] [address] USAMonocytes (Bld) [#/Vol]0.5 10*3/uLNormal0.0-0.8The [facility] Physician GroupComment on above:Performed By: #### CMP, SCAN CBC ####[place] [address] [place] Monocytes/100 WBC (Bld)21.7 %Normal.The [facility] Physician GroupComment on above:Performed By: #### CMP, SCAN CBC ####[place] [address] USANeutrophils (Bld) [#/Vol]0.8 10*3/uLLow1.8-7.7 The [facility] Physician GroupComment on above:Performed By: #### CMP, SCAN CBC ####[place] [address] [place] Neutrophils/100 WBC (Bld)34.3 %Normal.The [facility] Physician GroupComment on above:Performed By: #### CMP, SCAN CBC ####[address] [address] USANRBC%0.0 /100{WBC}Normal0-0.5The [facility] Physician GroupComment on above:Performed By: #### CMP, SCAN CBC ####[address] [address] USAOvalocytesSlight NormalThe [facility]alachian Physician GroupComment on above:Performed By: #### CMP, SCAN CBC ####[address] [address] [place] Platelet EstimateDecreasedNormalSt. Vincent's [facility]side Physician GroupComment on above:Performed By: #### CMP, SCAN CBC ####[address] [address] USAPlatelet mean volume (Bld) [Entitic vol]8.7 fL Normal6.3-10.7The [facility] Physician GroupComment on above:Performed By: #### CMP, SCAN CBC ####[address] [address] USAPlatelet MorphologyNormalNormalNoCritical access hospital Physician [facility] Comment on above:Result Comment: PERFORMED BY:[address] [place], [place] [phone] MEDICAL DIRECTORTAVIA SCHMIDT M.D.Performed By: #### CMP, SCAN CBC ####[address] [address] [place] Platelets (Bld) [#/Vol]53 10*3/sEOqu459-640Kwn [facility] Physician GroupComment on above:Performed By: #### CMP, SCAN CBC ####[address] [address] USAPoikilocytosisSlightNormShorePoint Health Punta Gorda Physician GroupComment on above:Performed By: #### CMP, SCAN CBC ####[address] [address] USARBC (Bld) [#/Vol]3.74 10*6/uLNormal3.60-5.00The [facility] Physician GroupComment on above:Performed By: #### CMP, SCAN CBC ####[address] [address] USAWBC (Bld) [#/Vol]2.4 10*3/uLLow3.8-11.6The [facility] Physician GroupComment on above:Performed By: #### CMP, SCAN CBC ####[address] [address] USABasophils/100 WBC Manual cnt (Bld)Ordered By: Fabiola Marinelli on 96-16-8763Hzlypdpih/100 WBC (Bld) Basophils/100 leukocytes in Blood by Manual count0-2FOhioHealth Arthur G.H. Bing, MD, Cancer CenterComprehensive Metabolic Panelon 34-46-1737Qefhmjo [Mass/Vol]3.6 g/dLNormal 3.5-5.7The [facility] Physician GroupComment on above:Performed By: #### DIFF CBC, CMP ####[address] [address] USAAlbumin/Globulin [Mass ratio]2.1 {ratio}NormalThe [facility] Comment on above:Performed By: #### DIFF CBC, CMP ####[address] [address] USAALP [Catalytic activity/Vol]88 U/L Gykuws00-905Tnh [facility] Physician GroupComment on above:Performed By: #### DIFF CBC, CMP ####[address] [address] USAALT [Catalytic activity/Vol]13 U/LNormal7-52The [facility] Physician GroupComment on above:Performed By: #### DIFF CBC, CMP ####[address] [address] USAAnion gap [Moles/Vol]10.1 mmol/LNormal6.0-15.0The [facility] Physician GroupComment on above:Performed By: #### DIFF CBC, CMP ####[place] [address] [place] [address] USAAST [Catalytic activity/Vol]27 U/FDvvwcd87-23Baa [facility] Physician GroupComment on above:Performed By: #### DIFF CBC, CMP ####[place] [address] [place] [address] USABilirubin [Mass/Vol]0.7 mg/dL Normal0.3-1.0The [facility] Physician GroupComment on above:Performed By: #### DIFF CBC, CMP ####[address] [address] USACalcium [Mass/Vol]8.7 mg/dLNormal8.6-10.3The [facility] Comment on above:Performed By: #### DIFF CBC, CMP ####[address] [address] USAChloride [Moles/Vol]106 mmol/LNormal 98-107The [facility] Physician [facility] HospitalComment on above:Performed By: #### DIFF CBC, CMP ####[address] [address] [place] CO2 [Moles/Vol]28.1 mmol/JAmsfdf71.0-31.0The [facility] Physician GroupComment on above:Performed By: #### DIFF CBC, CMP ####[address] [address] USACreatinine [Mass/Vol]0.88 mg/dLNormal0.60-1.20 The [facility] Physician GroupComment on above:Performed By: #### DIFF CBC, CMP ####[address] [address] [place] Creatinine Clr Calc Eocanmmg16.60NormalThe [facility]al[facility] Physician GroupComment on above:Result Comment: PERFORMED BY:[place] [address] [place] [place], [place] [phone] MEDICAL DIRECTORTAVIA HORAN M.D.Performed By: #### DIFF CBC, CMP ####[address] [address] USAGFR/1.73 sq M.predicted MDRD (S/P/Bld) [Vol rate/Area]mL/min/{1.73_m2}NormalThe [facility] Physician GroupComment on above:Performed By: #### DIFF CBC, CMP ####[place] [address] USAGlobulin (S) [Mass/Vol]1.7 g/dLNormalThe [facility] Physician GroupComment on above:Performed By: #### DIFF CBC, CMP ####[place] [address] USAGlucose [Mass/Vol]101 mg/fUHtsn90-487Por [facility] Physician GroupComment on above: Result Comment: Random Glucose Reference Range is dependent on time and content of last meal. Glucose of more than 200 mg/dL in a nonstressed, ambulatory subject supports the diagnosis of Diabetes Mellitus. ADA recommended reference rangePerformed By: #### DIFF CBC, CMP ####[place] [address] USAPotassium [Moles/Vol]4.2 mmol/LNormal3.5-5.1 The [facility] Physician GroupComment on above:Performed By: #### DIFF CBC, CMP ####[place] [address] USAProtein [Mass/Vol]5.3 g/dLLow6.4-8.9The [facility] Physician GroupComment on above: Performed By: #### DIFF CBC, CMP ####[place] [address] USASodium [Moles/Vol]140 mmol/YJujtgr177-536Luy [facility] Physician GroupComment on above:Performed By: #### DIFF CBC, CMP ####[place] [id number] USAUrea nitrogen [Mass/Vol]17 mg/dLNormal7-25The [facility] Physician GroupComment on above:Performed By: #### DIFF CBC, CMP ####[place] [address] USAComprehensive metabolic panelon 09-27-2024 Albumin [Mass/Vol]3.6 g/dL3.5 [...] HealthcareCreatinine (U) [Mass/Vol] 0.88 mg/dL0.60 - 1.20 mg/dLNOAR HealthcareCREATININE CLR CALC PZTATEMR98.6NOMS HealthcareESTIMATED GFRmL/MinNOMS HealthcareGlobulin (S) [Mass/Vol]1.7 g/dLNOAR HealthcareGlucose [Mass/Vol]101 mg/lVDhfr51 - 100 mg/dLNOAR HealthcareComment on above:Random Glucose Reference Range is dependent on time and content of last meal. Glucose of more than 200 mg/dL in a nonstressed, ambulatory subject supports the diagnosis of Diabetes Mellitus. ADA recommended reference range Interpretation and review of laboratory resultsAbnormalNOMS HealthcarePotassium [Moles/Vol]4.2 mmol/L3.5 - 5.1 mmol/LNOMS HealthcareProtein [Mass/Vol]5.3 g/dL Low6.4 - 8.9 g/dLNOAR HealthcareSodium [Moles/Vol]140 mmol/L136 - 145 mmol/LNOMS HealthcareUrea nitrogen [Mass/Vol]17 mg/dL7 - 25 mg/dLNOMS HealthcareNOMS HealthcareDIFF AND CBCon 40-64-7123Gaxknjcqdgwg Ql (Bld)ModerateNOMS Healthcare Basophils/100 WBC (Bld)1 %0 - 2 %NOM HealthcareEosinophils/100 WBC (Bld)13 % High1 - 3 %NOM HealthcareErythrocyte distribution width (RBC) [Ratio]17.9 %High 11.9 - 15.3 %NOM HealthcareHematocrit (Bld) [Volume fraction]29.6 %Low34.0 - 46.4 %NOM HealthcareHemoglobin (Bld) [Mass/Vol]9.4 g/dLLow11.8 - 15.4 g/dLMercy Hospital St. LouisHYPOCHROMASIASPaul Oliver [facility] Hospital HealthcareInterpretation and review of laboratory resultsAbnormalNOAR HealthcareLymphocytes/100 WBC (Bld)24 %18 - 42 % [facility]. LouisMCH (RBC) [Entitic mass]26.1 pg24.7 - 34.3 pgMissouri Baptist Medical CenterHC (RBC) [Mass/Vol]31.8 g/dLLow32.0 - 35.0 g/dLMercy Hospital St. LouisMCV (RBC) [Entitic vol]82.3 fL80 - [address] LouisMICROCYTOSISSSelect Specialty Hospital - [facility] Monocytes/100 WBC (Bld)12 %High2 - 11 %NOM HealthcarePLATELET ESTIMATEDecreased NormalNOAR HealthcarePlatelet mean volume (Bld) [Entitic vol]8.3 fL6.3 - 10.7 fL NOM HealthcarePLATELET MORPHOLOGYNormalNormalNOAR HealthcarePlatelets (Bld) [#/Vol]47 10*3/nPWbl379 - 450 10*3/uLNOAR HealthcareRBC LM.HPF (Urine sed) [#/Area]3.59 10*6/uLLow3.60 - 5.00 10*6/uLNOAR HealthcareSegmented neutrophils/100 WBC (Bld)50 %50 - 70 %NOM HealthcareWBC (Bld) [#/Vol]2 10*3/uL Low3.8 - 11.6 10*3/uLNOMS HealthcareWBC LM.HPF (Urine sed) [#/Area]2 10*3/uLLow 3.8 - 11.6 10*3/uLNOAR HealthcareNOMS HealthcareDiff and CBCon 09-27-2024 Anisocytosis Ql (Bld)[facility] Physician GroupComment on above:Performed By: #### DIFF CBC, CMP ####[address] [address] USABasophils/100 WBC (Bld)1 %Normal0-2The [facility] Physician GroupComment on above:Performed By: #### DIFF CBC, CMP ####[address] [address] [place] Eosinophils/100 WBC (Bld)13 %High1-3The [facility] Physician GroupComment on above:Performed By: #### DIFF CBC, CMP ####[address] [address] USAErythrocyte distribution width (RBC) [Ratio] 17.9 %High11.9-15.3The [facility] Physician GroupComment on above:Performed By: #### DIFF CBC, CMP ####[address] [address] USAHematocrit (Bld) [Volume fraction]29.6 %Low34.0-46.4The [facility] Physician GroupComment on above:Performed By: #### DIFF CBC, CMP ####[address] [address] USAHemoglobin (Bld) [Mass/Vol]9.4 g/dLLow11.8-15.4The [facility] Physician GroupComment on above: Performed By: #### DIFF CBC, CMP ####[address] [address] USAHypochromasiaSlightNormalThe [facility] Physician GroupComment on above:Performed By: #### DIFF CBC, CMP ####[address] [address] USALymphocytes/100 WBC (Bld)24 % Qappio69-90Gcp [facility] Physician GroupComment on above:Performed By: #### DIFF CBC, CMP ####[address] [address] USAMCH (RBC) [Entitic mass]26.1 yqPwaguh41.7-34.3The [facility] Comment on above:Performed By: #### DIFF CBC, CMP ####[address] [address] USAMCV (RBC) [Entitic vol]82.3 fLNormal 80-100The [facility]ician [facility] HospitalComment on above:Performed By: #### DIFF CBC, CMP ####[address] [address] [place] Mean Corpuscular HGB Conc31.8 g/dLLow32.0-35.0The [facility] Comment on above:Performed By: #### DIFF CBC, CMP ####[address] [address] USAMicrocytosisSlightNoCritical access hospital Physician [facility] HospitalComment on above:Performed By: #### DIFF CBC, CMP ####[address] [address] USAMonocytes/100 WBC (Bld)12 %High2-11The [facility] Physician GroupComment on above:Performed By: #### DIFF CBC, CMP ####[address] [address] USAPlatelet EstimateDecreasedNormalSt. Vincent's [facility] Physician [facility] Comment on above:Performed By: #### DIFF CBC, CMP ####[address] [address] USAPlatelet mean volume (Bld) [Entitic vol]8.3 fLNormal6.3-10.7The [facility] Physician GroupComment on above:Performed By: #### DIFF CBC, CMP ####[address] [address] USAPlatelet MorphologyNormalNormalNormShorePoint Health Punta Gorda Physician GroupComment on above:Result Comment: PERFORMED BY:[address] [place], [place] [phone] MEDICAL DIRECTORTAVIA SCHMIDT M.D.Performed By: #### DIFF CBC, CMP ####[address] [address] [place] Platelets (Bld) [#/Vol]47 10*3/zCLph525-430Jzy [facility] HospitalComment on above:Performed By: #### DIFF CBC, CMP ####[place] [address] [place] [address] USARBC (Bld) [#/Vol]3.59 10*6/uLLow3.60-5.00The [facility]ician [facility] HospitalComment on above:Performed By: #### DIFF CBC, CMP ####[address] [address] [place] Segmented neutrophils/100 WBC (Bld)50 %Tzakbd50-25Bmh [facility] Comment on above:Performed By: #### DIFF CBC, CMP ####[place] [address] [place] [id number] USAWBC (Bld) [#/Vol]2.0 10*3/uLLow 3.8-11.6The [facility] HospitalComment on above:Performed By: #### DIFF CBC, CMP ####[address] [address] [place] NaF bone subq (nopr)on 69-42-9410YFR NaF bone subq (nopr)NormalThe [facility] Physician GroupUS liveron 31-48-9064FE [facility] Physician [facility] HospitalAFP Tumor Marker, Serumon 49-46-8687QNI Tumor Marker, Serum4.4 ng/mLNormal0.0-9.2The [facility] HospitalComment on above:Result Comment: [employer] Electrochemiluminescence Immunoassay (ECLIA) Values obtained withdifferent assay methods or kits cannot be used interchangeably. Results cannot be interpreted as absolute evidence of the presence or absence of malignant disease. This test is not interpretable in females. Performed at: [address] [id number] Door Glass Installer: Lang Knight PhD, Phone: [phone] BY:[address], [place] [phone] MEDICAL DIRECTORMOHAMED M EL-FAKHARANY M.D.Performed By: #### CBC, CMP, PT ####[facility] [address]#### AFPTM ####[facility] ,Alanine aminotransferase [Enzymatic activity/volume] in Serum or PlasmaOrdered By: Garcia Ly on 65-64-3152TRT [Catalytic activity/Vol]Alanine aminotransferase [Enzymatic activity/volume] in Serum or Plasma7-52[facility] For RehabilitationAlbumin [Mass/volume] in Serum or Plasma by Bromocresol green (BCG) dye binding methoOrdered By: Garcia Ly on 72-60-3045Eulmjfa BCG dye [Mass/Vol]Albumin [Mass/volume] in Serum or Plasma by Bromocresol green (BCG) dye binding metho3.5-5.7FOhioHealth Arthur G.H. Bing, MD, Cancer CenterAlkaline phosphatase [Enzymatic activity/volume] in Serum or PlasmaOrdered By: Garcia Ly on 23-22-9697SMY [Catalytic activity/Vol]Alkaline phosphatase [Enzymatic activity/volume] in Serum or Cexxzi71-771GextdefdtChildren'S Hospital For RehabilitationAspartate aminotransferase [Enzymatic activity/volume] in Serum or Plasma Ordered By: Garcia Ly on 69-21-5726OSG [Catalytic activity/Vol]Aspartate aminotransferase [Enzymatic activity/volume] in Serum or Vimmos77-11QpgebfttfChildren'S Hospital For RehabilitationBasophils Auto (Bld) [#/Vol]Ordered By: Garcia Ly on 26-71-1495Vwsvhiwed (Bld) [#/Vol]Automated basophil count0.0-0.2FOhioHealth Arthur G.H. Bing, MD, Cancer CenterBasophils/100 WBC Auto (Bld)Ordered By: Garcia Ly on 65-98-8805Yrnwptbrw/100 WBC (Bld)Automated basophil %.[facility] For RehabilitationBilirubin.total [Mass/volume] in Serum or PlasmaOrdered By: Garcia Ly on 79-34-4951Pfzkmweol [Mass/Vol]Bilirubin.total [Mass/volume] in Serum or Plasma0.3-1.0[facility] For RehabilitationCalcium [Mass/volume] in Serum or PlasmaOrdered By: Garcia Ly on 90-18-9469Zhmkedt [Mass/Vol]Calcium [Mass/volume] in Serum or Plasma8.6-10.3FOhioHealth Arthur G.H. Bing, MD, Cancer CenterCarbon dioxide, total [Moles/volume] in Serum or PlasmaOrdered By: Garcia Sanchez on 81-78-2943PF3 [Moles/Vol]Carbon dioxide, total [Moles/volume] in Serum or Plasma High21.0-31.0[facility] For RehabilitationChloride [Moles/volume] in Serum or PlasmaOrdered By: Garcia Sanchez on 24-09-4783Chkwemvk [Moles/Vol]Chloride [Moles/volume] in Serum or Fxfyav46-666UfzpxjppmChildren'S Hospital For RehabilitationComplete Blood Count Auto Diffon 03-10-2991Tjwhdqcei (Bld) [#/Vol]0.0 10*3/uLNormal 0.0-0.2The [facility] Physician GroupComment on above:Result Comment: PERFORMED BY:[address] [place], [place] [phone] MEDICAL DIRECTORTAVIA SCHMIDT M.D.Performed By: #### CBC, CMP, PT ####[address]#### AFPTM ####[facility] ,Basophils/100 WBC (Bld)0.2 %Normal .The [facility] Physician GroupComment on above:Performed By: #### CBC, CMP, PT ####[address]#### AFPTM ####[facility] ,Eosinophils (Bld) [#/Vol]0.4 10*3/uLNormal 0.0-0.45The [facility] Physician GroupComment on above:Performed By: #### CBC, CMP, PT ####[address]#### AFPTM ####[facility] ,Eosinophils/100 WBC (Bld)14.4 %Normal. The [facility] Physician GroupComment on above:Performed By: #### CBC, CMP, PT ####[place] [address] [place]#### AFPTM ####[facility] ,Erythrocyte distribution width (RBC) [Ratio]18.1 %High11.9-15.3The [facility] Physician GroupComment on above:Performed By: #### CBC, CMP, PT ####[place] [address] [place]#### AFPTM ####[facility] ,Hematocrit (Bld) [Volume fraction] 30.5 %Low34.0-46.4The [facility] Physician GroupComment on above:Performed By: #### CBC, CMP, PT ####[address]#### AFPTM ####[facility] ,Hemoglobin (Bld) [Mass/Vol]9.9 g/dLLow11.8-15.4The [facility] Physician GroupComment on above:Performed By: #### CBC, CMP, PT ####[address]#### AFPTM ####[facility] ,Lymphocytes (Bld) [#/Vol]0.5 10*3/uLLow1.00-4.8The [facility] Physician GroupComment on above:Performed By: #### CBC, CMP, PT ####[place] [address] [place]#### AFPTM ####[facility] ,Lymphocytes/100 WBC (Bld)19.2 % Normal.The [facility] Physician GroupComment on above:Performed By: #### CBC, CMP, PT ####[place] [address] [place]#### AFPTM ####[facility] ,MCH (RBC) [Entitic mass]26.5 pgNormal 24.7-34.3The [facility] Physician GroupComment on above:Performed By: #### CBC, CMP, PT ####[place] [address] [place]#### AFPTM ####[facility] ,MCV (RBC) [Entitic vol]82.2 fLNormal 80-100The [facility] Physician GroupComment on above:Performed By: #### CBC, CMP, PT ####[place] [address] [place]#### AFPTM ####[facility] ,Mean Corpuscular HGB Conc32.3 g/dLNormal 32.0-35.0The [facility] Physician GroupComment on above:Performed By: #### CBC, CMP, PT ####[address]#### AFPTM ####[facility] ,Monocytes (Bld) [#/Vol]0.5 10*3/uLNormal 0.0-0.8The [facility] Physician GroupComment on above:Performed By: #### CBC, CMP, PT ####[place] [address] [place]#### AFPTM ####[facility] ,Monocytes/100 WBC (Bld)18.5 %Normal.The [facility] Physician GroupComment on above:Performed By: #### CBC, CMP, PT ####[place] [address] [place]#### AFPTM ####[facility] ,Neutrophils (Bld) [#/Vol]1.3 10*3/uLLow1.8-7.7 The [facility] Physician GroupComment on above:Performed By: #### CBC, CMP, PT ####[place] [address] [place]#### AFPTM ####[facility] ,Neutrophils/100 WBC (Bld)47.7 %Normal.The [facility] Physician GroupComment on above:Performed By: #### CBC, CMP, PT ####[place] [address] [place]#### AFPTM ####[facility] ,NRBC%0.2 /100{WBC}Normal0-0.5The [facility] Physician GroupComment on above:Performed By: #### CBC, CMP, PT ####[place] [address] [place]#### AFPTM ####[facility] ,Platelet mean volume (Bld) [Entitic vol]8.2 fLNormal 6.3-10.7The [facility] Physician GroupComment on above:Performed By: #### CBC, CMP, PT ####[address]#### AFPTM ####[facility] ,Platelets (Bld) [#/Vol]56 10*3/uLLow 150-450The [facility] Physician GroupComment on above:Performed By: #### CBC, CMP, PT ####[address]#### AFPTM ####[facility] ,RBC (Bld) [#/Vol]3.72 10*6/uLNormal 3.60-5.00The [facility] Physician GroupComment on above:Performed By: #### CBC, CMP, PT ####[place] [address] [place]#### AFPTM ####[facility] ,WBC (Bld) [#/Vol]2.7 10*3/uLLow3.8-11.6 The [facility] Physician GroupComment on above:Performed By: #### CBC, CMP, PT ####[place] [address] [place]#### AFPTM ####[facility] ,Comprehensive Metabolic Panelon 09-15-2024 Albumin [Mass/Vol]3.8 g/dLNormal3.5-5.7The [facility] Physician GroupComment on above:Performed By: #### CBC, CMP, PT ####[address]#### AFPTM ####[facility] , Albumin/Globulin [Mass ratio]2.4 {ratio}NormalThe [facility] Comment on above:Performed By: #### CBC, CMP, PT ####[address]#### AFPTM ####[facility] , ALP [Catalytic activity/Vol]99 U/GFnbipo46-979Wdq [facility] Comment on above:Result Comment: PERFORMED BY:[address]ErnaMOWEAQUA, [place] [phone] MEDICAL DIRECTORTAVIA SCHMIDT M.D.Performed By: #### CBC, CMP, PT ####[address]#### AFPTM ####[facility] ,ALT [Catalytic activity/Vol]15 U/LNormal7-52The [facility] Physician GroupComment on above:Performed By: #### CBC, CMP, PT ####[address]#### AFPTM ####[facility] ,Anion gap [Moles/Vol]10.0 mmol/LNormal6.0-15.0 The [facility] Physician GroupComment on above:Performed By: #### CBC, CMP, PT ####[place] [address] [place]#### AFPTM ####[facility] ,AST [Catalytic activity/Vol]33 U/ILvnisn54-99Uqg [facility] GroupComment on above:Performed By: #### CBC, CMP, PT ####[place] [address] [place]#### AFPTM ####[facility] ,Bilirubin [Mass/Vol]0.9 mg/dLNormal0.3-1.0The [facility] Physician GroupComment on above:Performed By: #### CBC, CMP, PT ####[place] [address] [place]#### AFPTM ####[facility] ,Calcium [Mass/Vol]8.8 mg/dLNormal8.6-10.3The [facility] Physician GroupComment on above:Performed By: #### CBC, CMP, PT ####[address]#### AFPTM ####[facility] ,Chloride [Moles/Vol]104 mmol/AZrbnhz20-437Tof [facility] GroupComment on above:Performed By: #### CBC, CMP, PT ####[place] [address] [place]#### AFPTM ####[facility] ,CO2 [Moles/Vol]31.3 mmol/LHigh21.0-31.0The [facility] Phys[facility] GroupComment on above:Performed By: #### CBC, CMP, PT ####[place] [address] [place]#### AFPTM ####[facility] ,Creatinine [Mass/Vol]1.00 mg/dLNormal0.60-1.20 The [facility] Phys[facility] GroupComment on above:Performed By: #### CBC, CMP, PT ####[place] [address] [place]#### AFPTM ####[facility] ,GFR/1.73 sq M.predicted MDRD (S/P/Bld) [Vol rate/Area]mL/min/{1.73_m2}NormalThe [facility] Phys[facility] GroupComment on above: Performed By: #### CBC, CMP, PT ####[place] [address] [place]#### AFPTM ####[facility] ,Globulin (S) [Mass/Vol]1.6 g/dLNormalThe [facility] GroupComment on above:Performed By: #### CBC, CMP, PT ####[place] [address] [place]#### AFPTM ####[facility] ,Glucose [Mass/Vol]71 mg/tFHqenjd38-562Xld [facility] GroupComment on above: Result Comment: Random Glucose Reference Range is dependent on time and content of last meal. Glucose of more than 200 mg/dL in a nonstressed, ambulatory subject supports the diagnosis of Diabetes Mellitus. ADA recommended reference rangePerformed By: #### CBC, CMP, PT ####[address]#### AFPTM ####[facility] ,Potassium [Moles/Vol]4.3 mmol/LNormal3.5-5.1The [facility] Phys[facility] GroupComment on above:Performed By: #### CBC, CMP, PT ####[place] [address] [place]#### AFPTM ####[facility] ,Protein [Mass/Vol]5.4 g/dLLow6.4-8.9The [facility] GroupComment on above: Performed By: #### CBC, CMP, PT ####[place] [address] [place]#### AFPTM ####[facility] ,Sodium [Moles/Vol]141 mmol/ALcmxco271-945Wkn [facility] Phys[facility] GroupComment on above: Performed By: #### CBC, CMP, PT ####[address]#### AFPTM ####[facility] ,Urea nitrogen [Mass/Vol]16 mg/dLNormal7 [facility] GroupComment on above: Performed By: #### CBC, CMP, PT ####[facility] [address]#### AFPTM ####[facility] ,Creatinine [Mass/volume] in Serum or PlasmaOrdered By: Garcia Sanchez on 97-97-0055Uqowvvkwig [Mass/Vol]Creatinine [Mass/volume] in Serum or Plasma0.60-1.20[facility] For RehabilitationEosinophils Auto (Bld) [#/Vol]Ordered By: Garcia Ly on 45-05-6445Jwmarlmyleq (Bld) [#/Vol]Automated eosinophil count0.0-0.45[facility] RehabilitationEosinophils/100 WBC Auto (Bld)Ordered By: Garcia Ly on 65-87-0737Uzpeniyjpyh/100 WBC (Bld)Automated eosinophil %.[facility] For RehabilitationErythrocyte distribution width Auto (RBC) [Ratio]Ordered By: Garcia Ly on 68-03-8846Haxfsqzwlqt distribution width (RBC) [Ratio] Erythrocyte distribution width [Ratio] by Automated szrbdBqtq36.9-15.3FOhioHealth Arthur G.H. Bing, MD, Cancer CenterGlobulin Calc (S) [Mass/Vol]Ordered By: Garcia Sanchez on 11-87-1394Aiulmvuu (S) [Mass/Vol]Serum globulin measurement by calculation (mass/volume)[facility] For RehabilitationGlucose [Mass/volume] in Serum or PlasmaOrdered By: Garcia Sanchez on 21-46-0329Bkwfulw [Mass/Vol]Glucose [Mass/volume] in Serum or Luluhr00-233BifvxipouChildren'S Hospital For Rehabilitation Hematocrit Auto (Bld) [Volume fraction]Ordered By: Garcia Ly on 09-15-2024 Hematocrit (Bld) [Volume fraction]Hematocrit [Volume Fraction] of Blood by Automated cmaroUar17.0-46.4FOhioHealth Arthur G.H. Bing, MD, Cancer CenterHemoglobin [Mass/volume] in BloodOrdered By: Garcia Sanchez on 07-94-4562Nyvrbqjoji (Bld) [Mass/Vol]Hemoglobin [Mass/volume] in CjcptYys91.8-15.4FOhioHealth Arthur G.H. Bing, MD, Cancer CenterINR in Platelet poor plasma by Coagulation assayOrdered By: Garcia Ly on 54-00-7310UMO Coag (PPP) [Relative time]INR in Platelet poor plasma by Coagulation assayChildren'S Hospital For RehabilitationLeukocytes [#/volume] corrected for nucleated erythrocytes in Blood by Automated coun Ordered By: Garcia Ly on 40-90-0849HTX corrected for nucl RBC Auto (Bld) [#/Vol]Leukocytes [#/volume] corrected for nucleated erythrocytes in Blood by Automated counLow3.8-11.6FOhioHealth Arthur G.H. Bing, MD, Cancer CenterLymphocytes Auto (Bld) [#/Vol]Ordered By: Garcia Ly on 97-57-1146Bioyedsaniu (Bld) [#/Vol] Lymphocytes [#/volume] in Blood by Automated countLow1.00-4.8[facility] For RehabilitationLymphocytes/100 WBC Auto (Bld)Ordered By: Garcia Ly on 55-82-7037Jvqlnnacaix/100 WBC (Bld)Lymphocytes/100 leukocytes in Blood by Automated count.[facility] For RehabilitationMCH Auto (RBC) [Entitic mass] Ordered By: Garcia Ly on 99-65-3223UAI (RBC) [Entitic mass]MCH [Entitic mass] by Automated count24.7-34.3FOhioHealth Arthur G.H. Bing, MD, Cancer CenterMCHC Auto (RBC) [Mass/Vol]Ordered By: Garcia Ly on 54-52-6403ZOHG (RBC) [Mass/Vol]MCHC [Mass/volume] by Automated count32.0-35.0[facility] For RehabilitationMCV Auto (RBC) [Entitic vol]Ordered By: Garcia Ly on 52-45-9365FVZ (RBC) [Entitic vol]MCV [Entitic volume] by Automated uzywm26-564VshmmfwfiChildren'S Hospital For RehabilitationMonocytes Auto (Bld) [#/Vol]Ordered By: Garcia Ly on 09-15-2024 Monocytes (Bld) [#/Vol]Automated blood monocyte count0.0-0.8[facility] For RehabilitationMonocytes/100 WBC Auto (Bld)Ordered By: Garcia Ly on 09-15-2024 Monocytes/100 WBC (Bld)Automated monocyte %.[facility] Neutrophils Auto (Bld) [#/Vol]Ordered By: Garcia Ly on 24-44-5779Cuhsgpohnsf (Bld) [#/Vol]Neutrophils [#/volume] in Blood by Automated countLow1.8-7.7 [facility] For RehabilitationNeutrophils/100 WBC Auto (Bld)Ordered By: Garcia Ly on 70-55-7319Zrabkuafczm/100 WBC (Bld)Automated neutrophil %. [facility] For RehabilitationNo Panel InformationOrdered By: Garcia Ly on 09-15-2024> 60.0 mL/MinChildren'S Hospital For RehabilitationN/AFOhioHealth Arthur G.H. Bing, MD, Cancer CenterNucleated erythrocytes [Presence] in Blood by Automated count Ordered By: Garcia Ly on 95-38-0251Umxopgvki RBC Auto Ql (Bld)Nucleated erythrocytes [Presence] in Blood by Automated count0-0.5FOhioHealth Arthur G.H. Bing, MD, Cancer CenterPlatelet mean volume Auto (Bld) [Entitic vol]Ordered By: Garcia Ly on 29-30-3463Vlufkyfy mean volume (Bld) [Entitic vol]Platelet mean volume [Entitic volume] in Blood by Automated count6.3-10.7FOhioHealth Arthur G.H. Bing, MD, Cancer CenterPlatelets Auto (Bld) [#/Vol]Ordered By: Garcia Ly on 09-15-2024 Platelets (Bld) [#/Vol]Platelets [#/volume] in Blood by Automated countLow 150-450[facility] For RehabilitationPotassium [Moles/volume] in Serum or PlasmaOrdered By: Garcia Ly on 18-11-1510Txqyeiucr [Moles/Vol]Potassium [Moles/volume] in Serum or Plasma3.5-5.1FOhioHealth Arthur G.H. Bing, MD, Cancer CenterProtein [Mass/volume] in Serum or PlasmaOrdered By: Garcia Ly on 20-39-9917Pklanyk [Mass/Vol]Protein [Mass/volume] in Serum or PlasmaLow6.4-8.9[facility] For RehabilitationProthrombin Time INRon 35-93-2672DPM Coag (PPP) [Relative time]1.3 {INR}NormalThe [facility] Physician GroupComment on above:Result Comment: INR Therapeutic [...] with mechanical heart valves: 3 - 4.5PERFORMED BY:[address]JunaidMOWEAQUA, [place] [phone] MEDICAL DIRECTORTAVIA SCHMIDT M.D. Performed By: #### CBC, CMP, PT ####[address]#### AFPTM ####[facility] ,PT Coag (PPP) [Time]14.7 sHigh9.0-12.9The [facility] Physician GroupComment on above:Result Comment: A hematocrit value greater than 55% may lead to inaccurate results in coagulation testing. Patients having hematocrit values >55% require a special collection tube for coagulation studies. Please contact the laboratory at [phone] for redraw instructions.Performed By: #### CBC, CMP, PT ####[address]#### AFPTM ####[facility] ,Prothrombin time (PT)Ordered By: Garcia Sanchez on 99-62-2999WC Coag (PPP) [Time]Prothrombin time (PT)High9.0-12.9[facility] For RehabilitationRBC Auto (Bld) [#/Vol]Ordered By: Garcia Sanchez on 84-62-3372LMA (Bld) [#/Vol]Erythrocytes [#/volume] in Blood by Automated count 3.60-5.00Summa Healtherum or plasma albumin/globulin mass ratioOrdered By: Garcia Sanchez on 11-99-7919Csnsjig/Globulin [Mass ratio]Serum or plasma albumin/globulin mass ratioSumma Healtherum or plasma ivvsg-3-teuxpknutgu tumor marker measurement (mass/volume)Ordered By: Garcia Sanchez on 38-59-2508UQI.tumor marker [Mass/Vol]Serum or plasma jfxog-7-yzqnecimojr tumor marker measurement (mass/volume)0.0-9.2FKettering Health Daytonerum or plasma anion gap determinationOrdered By: Garcia Sanchez on 08-55-6350Cwsql gap [Moles/Vol]Serum or plasma anion gap determination6.0-15.0Summa Healthodium [Moles/volume] in Serum or PlasmaOrdered By: Garcia Sanchez on 76-20-6733Mkhkxx [Moles/Vol]Sodium [Moles/volume] in Serum or Hjajeu930-111SpkurmipuChildren'S Hospital For RehabilitationUrea nitrogen [Mass/volume] in Serum or PlasmaOrdered By: Garcia Sanchez on 09-15-2024 Urea nitrogen [Mass/Vol]Urea nitrogen [Mass/volume] in Serum or Plasma7-25 [facility] For RehabilitationWBC Auto (Bld) [#/Vol]Ordered By: Garcia Sanchez on 86-13-1348SCG (Bld) [#/Vol]Leukocytes [#/volume] in Blood by Automated count Low3.8-11.6FOhioHealth Arthur G.H. Bing, MD, Cancer CenterImmunoglobulin light chains.free panel (S)Ordered By: Ferny Fletcher on 41-06-1527Izchobzoiqdaun light chains.kappa [Mass/Vol]mg/dLLow0.33 - 1.94 mg/dLUnTrinity Health System Twin City Medical CenterImmunoglobulin light chains.kappa/Immunoglobulin light chains.lambda (S) [Mass ratio][facility] HospitalComment on above:One or more analytes used in this calculation is outside of the analytical measurement range. Calculation cannot be performed. Immunoglobulin light chains.lambda [Mass/Vol]mg/dLLow0.57 - 2.63 mg/dLUnTrinity Health System Twin City Medical CenterInterpretation and review of laboratory resultsAbnoal [facility] HospitalUndetected antigen excess is a rare event but [...] be discussed with the testing laboratory.[facility]tering [facility] DaytonCB W Auto Differential panel (Bld)on 58-58-6023Uvfuxlony (Bld) [#/Vol]0 10*3/uLChillicothe HospitalBasophils/100 WBC (Bld)0 %0.0 - 2.0 %[facility] HospitalEosinophils (Bld) [#/Vol]0.34 10*3/uLChillicothe HospitalEosinophils/100 WBC (Bld)13.4 %0.0 - 6.0 %[facility] HospitalErythrocyte distribution width (RBC) [Ratio] 17.2 %High11.5 - 14.5 %[facility] HospitalHematocrit (Bld) [Volume fraction]29.5 %Low36.0 - 46.0 %[facility] HospitalHemoglobin (Bld) [Mass/Vol]9.3 g/dLLow12.0 - 16.0 g/dLUnTrinity Health System Twin City Medical Center Immature granulocytes (Bld) [#/Vol]0.01 10*3/[facility] Immature granulocytes/100 WBC (Bld)0.4 %0.0 - 0.9 %[facility] HospitalComment on above:Immature Granulocyte Count (IG) includes promyelocytes, myelocytes and metamyelocytes but does not include bands. Percent differential counts (%) should be interpreted in the context of the absolute c ell counts (cells/UL).Interpretation and review of laboratory resultsAbnormal [facility] HospitalLymphocytes (Bld) [#/Vol]0.62 10*3/uLLow [facility] HospitalLymphocytes/100 WBC (Bld)24.5 %13.0 - 44.0 % [facility] HospitalMCH (RBC) [Entitic mass]27.1 pg26.0 - 34.0 pg [facility] HospitalMCHC (RBC) [Mass/Vol]31.5 g/dLLow32.0 - 36.0 g/dLUnTrinity Health System Twin City Medical CenterMCV (RBC) [Entitic vol]86 fL80 - 100 fL [facility] HospitalMonocytes (Bld) [#/Vol]0.47 10*3/[facility] HospitalMonocytes/100 WBC (Bld)18.6 %2.0 - 10.0 %[facility] HospitalNeutrophils (Bld) [#/Vol]1.09 10*3/[facility] HospitalComment on above:Percent differential counts (%) should be interpreted in the context of the absolute cell counts (cells/uL). Neutrophils/100 WBC (Bld)43.1 %40.0 - 80.0 %[facility] Nucleated RBC/100 WBC (Bld) [Ratio]0 %[facility] HospitalPlatelets (Bld) [#/Vol]57 10*3/[facility] HospitalRBC (Bld) [#/Vol] 3.43 10*6/[facility] HospitalWBC (Bld) [#/Vol]2.5 10*3/uLCleveland Clinic Hillcrest HospitalUnTrinity Health System Twin City Medical CenterBasophils (Bld) [#/Vol]0.00 x10*3/uLNormal0.00-0.10[facility] CenterComment on above:Performed By: #### 73654-9 ####WIL HOLBROOK ([id number])[facility] ([place])[address] [place] [address] Basophils/100 WBC (Bld)0.0 %Normal0.0-2.0[facility] CenterComment on above:Performed By: #### 52242-1 ####WIL HOLBROOK ([id number])[facility] ([place])[address] [place], [place] [address]Zuzjwzbbthf (Bld) [#/Vol]0.34 x10*3/uLNormal0.00-0.70[facility] CenterComment on above:Performed By: #### 10515-8 ####WIL HOLBROOK ([id number])[facility] ([facility])[address] [place] [address] Eosinophils/100 WBC (Bld)13.4 %Normal0.0-6.0UnCleveland Clinic Mercy HospitalComment on above:Performed By: #### 60185-4 ####WIL HOLBROOK ([id number])[facility] ([facility])[address] [place] [address] Erythrocyte distribution width (RBC) [Ratio]17.2 %High11.5-14.5UnCleveland Clinic Mercy HospitalComment on above:Performed By: #### 77021-2 ####WIL HOLBROOK ([id number])[facility] ([facility])[address] [place], [place] [address]Nvysdwzugf (Bld) [Volume fraction]29.5 %Low36.0-46.0 [facility] CenterComment on above:Performed By: #### 09899-3 ####WIL HOLBROOK ([id number])[facility] ([facility])[address] [place], [place] [address]Ulzbyhbwyc (Bld) [Mass/Vol]9.3 g/dLLow12.0-16.0 [facility] CenterComment on above:Performed By: #### 89682-8 ####WIL HOLBROOK ([id number])[facility] ([facility])[address] [place], [place] [address]Bfympenr granulocytes (Bld) [#/Vol]0.01 x10*3/uL Normal0.00-0.70UnCleveland Clinic Mercy HospitalComment on above: Performed By: #### 48929-0 ####WIL HOLBROOK ([id number])[facility] ([facility])[address] [place], [place] [address]Pxekoicf granulocytes/100 WBC (Bld) 0.4 %Normal0.0-0.9UnCleveland Clinic Mercy HospitalComment on above: Result Comment: Immature Granulocyte Count (IG) includes promyelocytes, myelocytes and metamyelocytes but does not include bands. Percent differential counts (%) should be interpreted in the context of the absolute cell counts (cells/UL).Performed By: #### 29659-2 ####WIL HOLBROOK ([id number])[facility] ([facility])[address] [place], [place] [address]Bsdossfwwum (Bld) [#/Vol]0.62 x10*3/uLLow1.20-4.80[facility] Comment on above:Performed By: #### 94956-7 ####WIL Villalobos'VANDANA ([id number])[facility] ([facility])[address] [place] [address] Lymphocytes/100 WBC (Bld)24.5 %Jqpgqz06.0-44.0[facility] Medical CenterComment on above:Performed By: #### 08210-5 ####WIL Villalobos'VANDANA ([id number])[facility] ([facility]EX)[address] [place] [address] MCH (RBC) [Entitic mass]27.1 bvIfmiau06.0-34.0[facility] CenterComment on above:Performed By: #### 70633-5 ####WIL Villalobos'VANDANA ([id number])[facility] ([facility])[address] [place] [address] MCHC (RBC) [Mass/Vol]31.5 g/dLLow32.0-36.0UnCleveland Clinic Mercy HospitalComment on above:Performed By: #### 74838-4 ####WIL Villalobos'VANDANA ([id number])[facility] ([facility])[address] [place] [address] MCV (RBC) [Entitic vol]86 iRHjomuk63-585WlhiiqimixSouthview Medical CenterComment on above:Performed By: #### 76420-1 ####WIL Villalobos'VANDANA ([id number])[facility] ([facility])[address] [place], [place] [address]Zcjyrkjzb (Bld) [#/Vol]0.47 x10*3/uLNormal0.10-1.00[facility] CenterComment on above:Performed By: #### 51226-8 ####WIL Villalobos'VANDANA ([id number])[facility] ([facility])[address] [place] [address] Monocytes/100 WBC (Bld)18.6 %Normal2.0-10.0UnCleveland Clinic Mercy HospitalComment on above:Performed By: #### 21857-8 ####WIL Villalobos'VANDANA ([id number])[facility] ([facility])[address] [place] [address] Neutrophils (Bld) [#/Vol]1.09 x10*3/uLLow1.20-7.70UnCleveland Clinic Mercy HospitalComment on above:Result Comment: Percent differential counts (%) should be interpreted in the context of the absolute cell counts (cells/uL). Performed By: #### 98829-2 ####WIL Villalobos'VANDANA ([id number])[facility] ([facility])[address] [place], [place] [address]Wpzhgzwhkqd/100 WBC (Bld)43.1 % Oaldgq03.0-80.0UnCleveland Clinic Mercy HospitalComment on above: Performed By: #### 60469-5 ####WIL Villalobos'VANDANA ([id number])[facility] ([facility])[address] [place], [place] [address]Uuinuliuj RBC/100 WBC (Bld) [Ratio] 0.0 /100 WBCsNormal0.0-0.0[facility] CenterComment on above:Performed By: #### 08306-5 ####WIL Villalobos'VANDANA ([id number])[facility] ([facility])[address] [place], [place] [address]Rkkuudpzi (Bld) [#/Vol]57 x10*3/hDMwq279-195MnkkyrtrejCleveland Clinic Mercy HospitalComment on above:Performed By: #### 41845-2 ####WIL HOLBROOK ([id number])[facility] ([facility])[address] [facility], [place] [address]PMD (Bld) [#/Vol]3.43 x10*6/uLLow4.00-5.20UnCleveland Clinic Mercy HospitalComment on above:Performed By: #### 89071-6 ####WIL HOLBROOK ([id number])[facility] ([facility])[address] [place], [place] [address]XFB (Bld) [#/Vol]2.5 x10*3/uLLow4.4-11.3[facility] Medical CenterComment on above:Performed By: #### 18800-5 ####WIL HOLBROOK ([id number])[facility] ([facility])[address] [place], [place] [address]Ylycpnuwxexmr metabolic 2000 panelon 84-71-6025Cvyehkp BCP dye [Mass/Vol]3.8 g/dL3.4 - 5.0 g/dLUnTrinity Health System Twin City Medical CenterALP [Catalytic activity/Vol]108 U/L33 - 136 U/[facility] CenterALT With P-5'-P [Catalytic activity/Vol]16 U/L7 - 45 U/L [facility] HospitalComment on above:Patients treated with Sulfasalazine may generate falsely decreased results for ALT.Anion gap [Moles/Vol]9 mmol/LLow10 - 20 mmol/[facility] CenterAST With P-5'-P [Catalytic activity/Vol]31 U/L9 - 39 U/[facility] Bilirubin [Mass/Vol]0.6 mg/dL0.0 - 1.2 mg/dLUnTrinity Health System [facility] Calcium [Mass/Vol]8.5 mg/dLLow8.6 - 10.3 mg/dLUnTrinity Health System [facility] Chloride [Moles/Vol]104 mmol/L98 - 107 mmol/[facility] CO2 [Moles/Vol]31 mmol/L21 - 32 mmol/[facility] Creatinine [Mass/Vol]0.96 mg/dL0.50 - 1.05 mg/dLUnTrinity Health System Twin City Medical CenterGFR/1.73 sq M.predicted among non-blacks MDRD (S/P/Bld) [Vol rate/Area] 65 mL/min/{1.73_m2}- PINFUniTriHealth McCullough-Hyde Memorial HospitalComment on above: Calculations of estimated GFR are performed using the 2020 CKD-EPI Study Refit equation without therace variable for the IDMS-Traceable creatinine methods. https://jasn.asnjournals.org/content//ASN.8720605334 Glucose [Mass/Vol]131 mg/bWAlrd94 - 99 mg/dLUnTrinity Health System [facility] Interpretation and review of laboratory resultsAbnormalUniTriHealth McCullough-Hyde Memorial HospitalPotassium [Moles/Vol]4.2 mmol/L3.5 - 5.3 mmol/[facility] CenterProtein [Mass/Vol]5.5 g/dLLow6.4 - 8.2 g/dLUnTrinity Health System [facility] Medical CenterSodium [Moles/Vol]140 mmol/L136 - 145 mmol/[facility] CenterUrea nitrogen [Mass/Vol]19 mg/dL6 - 23 mg/dLUnTrinity Health System Twin City Medical CenterUnTrinity Health [facility] Medical CenterAlbumin BCP dye [Mass/Vol]3.8 g/dL Normal3.4-5.0UnCleveland Clinic Mercy HospitalComment on above: Performed By: #### 32606-5 ####WIL HOLBROOK ([id number])[facility] ([facility])[address] [place], [place] [address]TWZ [Catalytic activity/Vol]108 U/L Quspty83-979DeovzpgtuwCleveland Clinic Mercy HospitalComment on above: Performed By: #### 20593-4 ####WIL HOLBROOK ([id number])[facility] ([facility])[address] [place], [place] [address]DRH With P-5'-P [Catalytic activity/Vol]16 U/LNormal7-45UnMorrow County Hospital Center Comment on above:Result Comment: Patients treated with Sulfasalazine may generate falsely decreased results for ALT.Performed By: #### 33455-4 ####WIL HOLBROOK ([id number])[facility] ([facility]EX)[address] [place], [place] [address]Ukinm gap [Moles/Vol]9 mmol/QNno24-36QtprremhzqCleveland Clinic Mercy HospitalComment on above:Performed By: #### 22953-3 ####WIL HOLBROOK ([id number])[facility] ([facility]EX)[address] [place] [address] AST With P-5'-P [Catalytic activity/Vol]31 U/LNormal9-39[facility] CenterComment on above:Performed By: #### 36899-1 ####WIL HOLBROOK ([id number])[facility] ([facility]EX)[address] [place], [place] [address]Cezanppnv [Mass/Vol]0.6 mg/dLNormal0.0-1.2[facility] CenterComment on above:Performed By: #### 78337-8 ####WIL HOLBROOK ([id number])[facility] ([facility]EX)[address] [place] [address] Calcium [Mass/Vol]8.5 mg/dLLow8.6-10.3[facility] CenterComment on above:Performed By: #### 79313-8 ####WIL HOLBROOK ([id number])[facility] ([facility]EX)[address], [place] [address]Wkhbbprc [Moles/Vol]104 mmol/XVupmat45-023NdmtvkmwenSouthview Medical Center Comment on above:Performed By: #### 05133-0 ####WIL HOLBROOK ([id number])[facility] ([facility]EX)[address], [place] [address]LF4 [Moles/Vol]31 mmol/RWfnvek34-54AytlrcqoqxSouthview Medical Center Comment on above:Performed By: #### 13794-3 ####WIL HOLBROOK ([id number])[facility] ([facility]EX)[address] [place], [place] [address]Ophtoeoxqm [Mass/Vol]0.96 mg/dLNormal0.50-1.05UnCleveland Clinic Mercy Hospital Comment on above:Performed By: #### 99220-0 ####WIL HOLBROOK ([id number])[facility] ([facility]EX)[address] [place], [place] [address]Nlgrhbengw filtration rate/1.73 sq M.crftjckyt87 mL/min/1.73m*2Normal>60UnCleveland Clinic Mercy HospitalComment on above:Result Comment: Calculations of estimated GFR are performed using the 2020 CKD-EPI Study Refit equation without the race variable for the IDMS-Traceable creatinine methods.https://jasn.asnjournals.org/content/early//ASN.5279737854 Performed By: #### 77168-1 ####WIL HOLBROOK ([id number])[facility] ([facility]EX)[address] [place], [place] [address]Ohbbqcs [Mass/Vol]131 mg/dLHigh 74-99UnCleveland Clinic Mercy HospitalComment on above:Performed By: #### 70363-3 ####WIL HOLBROOK ([id number])[facility] ([place])[address] [place], [place] [address]Oglfjmoec [Moles/Vol]4.2 mmol/LNormal 3.5-5.3UnCleveland Clinic Mercy HospitalComment on above:Performed By: #### 67929-9 ####WIL HOLBROOK ([id number])[facility] ([place])[address] [place], [place] [address]Spdncfd [Mass/Vol]5.5 g/dLLow6.4-8.2 [facility] CenterComment on above:Performed By: #### 17786-8 ####WIL HOLBROOK ([id number])[facility] ([place])[address] [place], [place] [address]Zdpfco [Moles/Vol]140 mmol/PHcnlbz454-629MkckegvxbxSouthview Medical CenterComment on above:Performed By: #### 34164-0 ####WIL HOLBROOK ([id number])[facility] ([place])[address] [place], [place] [address]Adwy nitrogen [Mass/Vol]19 mg/dLNormal6-23[facility] Medical CenterComment on above:Performed By: #### 40780-1 ####WIL HOLBROOK ([id number])[facility] ([place])[address]ART[facility], [place] 74228QBQTXWOMJSKACEW (IGG, IGA, IGM)on 03-71-6829UmE [Mass/Vol] mg/cFSrt26-989LgmpndxzgxSouthview Medical CenterComment on above: Order Comment: MONOCLONAL PROTEINS MAY CAUSE FALSELY LOWRESULTS IN THIS ASSAY. SERUM PROTEINELECTROPHORESIS SHOULD BE DONE THEFIRST TEST TO EVALUATE MONOCLONAL GAMMOPATHY.Performed By: #### IGS ####ARNULFO Roger ([id number])[facility] ([facility])[address] [facility] [place], [place] [address]YbH [Mass/Vol]312 mg/wYAxg753-6115FaewytvdniSouthview Medical CenterComment on above: Order Comment: MONOCLONAL PROTEINS MAY CAUSE FALSELY LOWRESULTS IN THIS ASSAY. SERUM PROTEINELECTROPHORESIS SHOULD BE DONE THEFIRST TEST TO EVALUATE MONOCLONAL GAMMOPATHY.Performed By: #### IGS ####ARNULFO Roger ([id number])[facility] ([facility])[address] [facility], [place] [address]YuP [Mass/Vol]mg/dL Oqc26-088XqlajvjzwqCleveland Clinic Mercy HospitalComment on above:Order Comment: MONOCLONAL PROTEINS MAY CAUSE FALSELY LOWRESULTS IN THIS ASSAY. SERUM PROTEINELECTROPHORESIS SHOULD BE DONE THEFIRST TEST TO EVALUATE MONOCLONAL GAMMOPATHY.Performed By: #### IGS ####ARNULFO Roger ([id number])[facility] ([facility])[id number] [place] [address] 28914Blfioszvoddajr light chains.free panel (S)on 66-58-3200Kqdkygqmicqoor light chains.kappa [Mass/Vol]<0.08Low 0.33-1.94Southview Medical CenterComment on above:Order Comment: Undetected antigen [...] be discussedwith the testing laboratory.Performed By: #### 29391-0 ####ARNULFO Roger ([id number])[facility] ([facility])[address] [place] [address] 16778Zzamqnpupcymuq light chains.kappa/Immunoglobulin light chains.lambda (S) [Mass ratio]Normal Southview Medical CenterComment on above:Order Comment: Undetected antigen [...] measurement range.Calculation cannot be performed.Performed By: #### 41028-6 ####ARNULFO Roger ([id number])[facility] ([facility])[address] [place] [address] 20247Vcckvluvsapmtl light chains.lambda [Mass/Vol]<0.17Low 0.57-2.63Southview Medical CenterComment on above:Order Comment: Undetected antigen [...] be discussedwith the testing laboratory.Performed By: #### 91113-2 ####ARNULFO Roger ([id number])[facility] ([facility])[address] [place] [address] 67885Brzwjyoqbwuqrsg (IgG, IgA, IgM)Ordered By: Ligia Hi on 39-01-8869PnJ [Mass/Vol]mg/dLLow70 - 400 mg/dLUnTrinity Health System Twin City Medical CenterIgG [Mass/Vol]312 mg/lCWuj842 - 1600 mg/dLUnTrinity Health System Twin City Medical CenterIgM [Mass/Vol]mg/dLLow40 - 230 mg/dL [facility] HospitalInterpretation and review of laboratory results AbnormalUnTrinity Health System Twin City Medical CenterMONOCLONAL PROTEINS MAY CAUSE FALSELY LOW RESULTS IN THIS ASSAY. SERUM PROTEIN ELECTROPHORESIS SHOULD BE DONE THE FIRST TEST TO EVALUATE MONOCLONAL GAMMOPATHY.[facility] HospitalProteinon 98-21-7881Vusemxc [Mass/Vol]5.3 g/dL Low6.4-8.2UnCleveland Clinic Mercy HospitalComment on above: Performed By: #### 2885-2 ####ARNULFO Roger ([id number])[facility] ([facility])[address] [place] [address] 40278Eqgfeok electrophoresis panelon 09-06-2024 Albumin [Mass/Vol]3.3 g/dLLow3.4-5.0UnCleveland Clinic Mercy HospitalComment on above:Performed By: #### 20122-0 ####ARNULFO Roger ([id number])[facility] ([facility])[id number] [place] [address]98[address]ERZTQ 1 GLOBULIN0.3 g/dLNormal0.2-0.6UnCleveland Clinic Mercy HospitalComment on above: Performed By: #### 85044-8 ####ARNULFO Roger ([id number])[facility] ([facility])[address] [place] [address] 33432HSJWK 2 GLOBULIN0.7 g/dLNormal0.4-1.1Southview Medical CenterComment on above:Performed By: #### 16322-6 ####ARNULFO Roger ([id number])[facility] ([facility])[address] [place], [place] [address]HMPD GLOBULIN0.7 g/dLNormal0.5-1.2Southview Medical CenterComment on above:Performed By: #### 90292-7 ####ARNULFO Roger ([id number])[facility] ([facility])[address] [place], [place] [address]TMAJP GLOBULIN0.3 g/dLLow0.5-1.4Southview Medical CenterComment on above: Performed By: #### 45462-6 ####ARNULFO Roger ([id number])[facility] ([facility])[address] [place] [address] 49471GJBA REVIEW-SERUM PROTEIN ELECTROPHORESIS Reviewed and approved by CASS FREEDMAN on 09/07/24 at 7:30 PM.[facility] General Health CenterComment on above:Performed By: #### 26714-4 ####ARNULFO Roger ([id number])[facility] ([facility])[address] [place], [place] [address]IYJURDB ELECTROPHORESIS COMMENTSEE COMMENTNormalUniMcKitrick HospitalComment on above:Result Comment: Hypoalbuminemia. Decrease in polyclonal gamma globulins.Performed By: #### 50398-2 ####ARNULFO Roger ([id number])[facility] ([facility])[address] [place] [address] 14986Oushc Mycobacterium tuberculosis stimulated gamma interferon detectionOrdered By: Fabiola Palumbo on 08-26-2024M. tuberculosis tuberculin stim IFN-g Ql (Bld)Blood Mycobacterium tuberculosis tuberculin stimulated gamma interferon detection. [facility] Hospital For RehabilitationBlood mitogen stimulated gamma interferon measurement (units/volume)Ordered By: Fabiola Palumbo on 92-39-2162Eusovcs stimulated gamma interferon Qn (Bld)Blood mitogen stimulated gamma interferon measurement (units/volume).[facility] For RehabilitationCholesterol [Mass/volume] in Serum or PlasmaOrdered By: Fabiola Omidchol on 06-84-3242Mwoqaojzpzz [Mass/Vol]Cholesterol [Mass/volume] in Serum or VgazroCnx825-633MmcxncmnkChildren'S Hospital For RehabilitationCholesterol in HDL [Mass/volume] in Serum or Plasma Ordered By: Fabiola Omidchol on 89-01-5607Qapemwcjryu in HDL [Mass/Vol]Serum or plasma high density lipoprotein (HDL) cholesterol zebgcrvdkjw81-14AatacokotChildren'S Hospital For RehabilitationCholesterol in LDL Calc [Mass/Vol]Ordered By: Fabiola Omidchol on 91-56-2975Bjikmkegtrl in LDL [Mass/Vol]Cholesterol in LDL [Mass/volume] in Serum or Plasma by calculation0-100[facility] For RehabilitationCholesterol in VLDL Calc [Mass/Vol]Ordered By: Fabiola Omidchol on 89-12-3950Vthbrlwpdad in VLDL [Mass/Vol]Cholesterol in VLDL [Mass/volume] in Serum or Plasma by calculation [facility] For RehabilitationCreatinine [Mass/volume] in UrineOrdered By: Fabiola Deepali on 37-69-5547Dmveclhsho (U) [Mass/Vol]Creatinine [Mass/volume] in UrineChildren'S Hospital For RehabilitationFolateon 45-77-5220Tcwkxd89.8 ng/mLNormal >5.9The [facility]ian Physician GroupComment on above:Result Comment: Folate reference range: >5.9 ng/ml The WHO technical consultation on folate and vitamin b12 deficiencies has determined that folate concentrations less than 4 ng/ml are considered deficient.Performed By: #### [id number], LIPID, B12, FOL ####[facility] [address] [place] [address] USAFolate [Mass/volume] in Serum or PlasmaOrdered By: Fabiola Palumbo on 14-87-5313Tkwvbv [Mass/Vol]Folate [Mass/volume] in Serum or Plasma>5.9[facility] Hospital For RehabilitationLipid Panelon 63-99-4286Uwapdhkuwns [Mass/Vol]130 mg/jFNoz852-217Fwg [facility] Physician GroupComment on above:Result Comment: Chol less than 200 mg/dl low risk Chol 201-239 mg/dl borderline risk Chol 240 mg/dland greater high riskPerformed By: #### [id number], LIPID, B12, FOL ####[address] [place] [address] USACholesterol in HDL [Mass/Vol]69 mg/dL Vzikel40-52Iyh [facility]ach[facility] Physician GroupComment on above:Result Comment: HDL CHOL ATP-III CLASSIFICATION Cardiovascular Risk HDL > or equal to 60 mg/dL LOW HDL < 40 mg/dL HIGHPerformed By: #### [id number], LIPID, B12, FOL ####[address] [address] [place] Cholesterol.total/Cholesterol in HDL [Mass ratio]1.9 {ratio}Normal<5.0The [facility] Physician GroupComment on above:Performed By: #### [id number], LIPID, B12, FOL ####[address] [address] [place]ALDL Cholesterol,Fixtasbyjd21 mg/dLNormal0-100The [facility] Comment on above:Result Comment: LDL ATP III CLASSIFICATION LDL less than 100 mg/dL Optimal LDL 100-129 mg/dL Near or above optimal LDL 130-159 mg/dL Borderline high LDL 160-189 mg/dL High LDL greater than 189 mg/dL Very high Performed By: #### [id number], LIPID, B12, FOL ####[address] [address] USATriglyceride w/Gqwngq21 mg/dLNormal 0-149The [facility]alach[facility] Physician GroupComment on above:Result Comment: TRIG ATP III CLASSIFICATION TRIG less than 150 mg/dL Normal TRIG 150-199 mg/dL Borderline high TRIG 200-500 mg/dL High TRIG greater than 500 mg/dL Very high Standard traceable to the Center for Disease Conrtrol and Prevention (CDC) test method. Performed By: #### [id number], LIPID, B12, FOL ####[address] [address] USAVLDL OPNETLYBTDG23 mg/dLNormalThe [facility]alachian Physician GroupComment on above:Performed By: #### INEC68QO, LIPID, B12, FOL ####[address] [place] [address] USAMicroAlb Creat Ratio,Uon 10-89-2054Xelzcte DL <= 20 mg/L (U) [Mass/Vol]mg/dL Normal0.0-1.8The [facility]alachian Physician GroupComment on above:Performed By: #### URMACRERAT ####[address] [place] [address] USACreatinine, Urine (Random)11.00 mg/dLNormalThe [facility] Comment on above:Result Comment: No reference range establishedPerformed By: #### URMACRERAT ####[address] [place], [place] [address]SRTHfrexvhpyyyh/Creatinine RatioNot performedNormal0.0-30.0The [facility]alachian Physician GroupComment on above:Result Comment: PERFORMED BY:[address] [place], [place] [phone] MEDICAL DIRECTORWEI HARE M.D.Performed By: #### URMACRERAT ####[address] [address]XMGBwjmxdjwxnpn [Mass/volume] in UrineOrdered By: Fabiola Palumbo on 88-30-9068Gevgfyi DL <= 20 mg/L (U) [Mass/Vol] Microalbumin [Mass/volume] in Urine0.0-1.8[facility] Mycobacterium tuberculosis stimulated gamma interferon [Interpretation] in Blood QualOrdered By: Fabiola Palumbo on 08-26-2024M. tuberculosis stim IFN-g Ql (Bld) [Interp]Mycobacterium tuberculosis stimulated gamma interferon [Interpretation] in Blood QualNegativeChildren'S Hospital For RehabilitationQuantiFERON TB Goldon 76-97-0454PYFD CriteriaCommentNormal.The [facility]alachian Physician GroupComment on above:Result Comment: QuantiFERON-TB Gold [...] QUANT TB ####[facility] ,Quant TB Ag Value0.03Normal.The [facility] Physician GroupComment on above:Performed By: #### QUANT TB ####[facility] ,Quant TB Gold PlusNegativeNormal NegativeThe [facility]alachian Physician GroupComment on above:Result Comment: No response [...] interferon gamma. Chemiluminescence immunoassay methodology Performed at: [facility] [id number] Door Glass Installer: Lang Knight PhD, Phone: [phone] BY:[address] [id number] MEDICAL DIRECTORWEI HARE M.D.Performed By: #### QUANT TB ####[facility] ,Quant TB2 Ag Value0.03Normal.The [facility]ian Physician GroupComment on above:Performed By: #### QUANT TB ####[facility] ,Quantiferon Nil Value0.02Normal.The [facility]alachian Physician GroupComment on above:Performed By: #### QUANT TB ####[facility] ,Quantiferon TB Mitogen>10.00Normal.The [facility]alachian Physician GroupComment on above:Performed By: #### QUANT TB ####[facility] ,Serum or plasma total cholesterol/high density lipoprotein (HDL) cholesterol mass ratOrdered By: Fabiola Palumbo on 08-26-2024 Cholesterol.total/Cholesterol in HDL [Mass ratio]Serum or plasma total cholesterol/high density lipoprotein (HDL) cholesterol mass rat<5.0[facility] For RehabilitationTriglyceride [Mass/volume] in Serum or PlasmaOrdered By: Fabiola Deepali on 46-40-4819Iesmokxdcbnb [Mass/Vol]Triglyceride [Mass/volume] in Serum or Plasma0-149[facility] For RehabilitationUrine microalbumin/creatinine mass ratioOrdered By: Fabiola Omidgordon on 08-26-2024 Albumin/Creatinine DL <= 20 mg/L (U) [Mass ratio]Urine microalbumin/creatinine mass ratioChildren'S Hospital For RehabilitationVitamin B12on 51-37-6172Yvhacpxyg (Vitamin B12) [Mass/Vol]1064 pg/sZSboc941-657Oin [facility] Comment on above:Performed By: #### [id number], LIPID, B12, FOL ####[facility] [place] [address] [facility] MEDICAL CENTERBVitamin B12 ser/plas Ordered By: Fabiola Palumbo on 47-39-7576Jriyqkibg (Vitamin B12) [Mass/Vol]Vitamin B12 ser/xdwfGdjq416-554QtwhmwbhjChildren'S Hospital For RehabilitationVitamin D 25 Hydroxy Totalon 38-12-3051Efcfeck D 25 Hydroxy Total52.9 ng/ePRrvznv44-300Xuh [facility] Physician GroupComment on above:Result Comment: VITAMIN D STATUS 25(OH)VITAMIN D RANGE (ng/mL) Deficient <20 Insufficient 20 to <30 Sufficient 30 to 100 Reference: David MF,Dex NC, Phan KRISHNA, et al. Evaluation,t reatment, and prevention of vitamin D deficiency; an Endocrine Society clinical practice guideline.JCEM. 2010; 96(7):1911-30.PERFORMED BY:[address] [place], [place] [phone] MEDICAL DIRECTORWEI HARE M.D.Performed By: #### [id number], LIPID, B12, FOL ####[facility] [place] [address] USAVitamin D+Metabolites [Mass/volume] in Serum or PlasmaOrdered By: Fabiola Palumbo on 09-87-3527Nidbwhw D+Metabolites [Mass/Vol]Vitamin D+Metabolites [Mass/volume] in Serum or Mkilqu28-165UtucwivrxChildren'S Hospital For RehabilitationWhole blood measurement of Mycobacterium tuberculosis stimulated gamma interferon relOrdered By: Fabiola Palumbo on 08-26-2024M. tuberculosis stim IFN-g by CD4+ CD8+ T-cells corrected for background Qn (Bld)Whole blood measurement of Mycobacterium tuberculosis stimulated gamma interferon rel.[facility] For RehabilitationMM TOMOSYNTHESIS SCREENING BIon 26-08-8463[place] [address] Mammography Report Signed Patient: MOJGAN PÉREZ MR#: [id number] : 1955 Acct:[id number] Age/Sex: 68 / F ADM Date: 08/18/24 Loc: MAMMO Attending Dr: YINKA LOPEZ Ordering Physician: YINKA LOPEZ Results: Date of Service: 08/18/24 Follow Up: Procedure(s): MM tomosynthesis screening BI Accession Number(s): [id number] cc: YINKA LOPEZ Patient Name: MOJGAN PÉREZ MR#: [id number] : 1955 Exam Date: 08/18/2024 Ordering Doctor: DR YINKA LOPEZ M.D. RADIOLOGY REPORT PROCEDURE: MM TOMOSYNTHESIS SCREENING [...] age 66. LOCATION: The [facility] BREAST COMPOSITION: There are scattered areas [...] BIOPSIED. Dictated by: Phyllis Lozano MD on 08/18/2024 at 15:11 Approved by: Phyllis Lozano MD on 08/18/2024 at 15:19 Dictated By: Phyllis Lozano M.D. Signed By: 08/18/24 1520 DD/ 1519 TD/TT: Rn Plasma Center:PREMHRadiologseun, Radiologist, - 08/18/2024 [place] [address] Mammography Report Signed Patient: MOJGAN PÉREZ MR#: [id number] : 1955 Acct:[id number] Age/Sex: 68 / F ADM Date: 08/18/24 Loc: MAMMO Attending Dr: YINKA LOPEZ Ordering Physician: YINKA LOPEZ Results: Date of Service: 08/18/24 Follow Up: Procedure(s): MM tomosynthesis screening BI Accession Number(s): [id number] cc: YINKA LOPEZ Patient Name: MOJGAN PÉREZ MR#: [id number] : 1955 Exam Date: 08/18/2024 Ordering Doctor: DR YINKA LOPEZ M.D. RADIOLOGY REPORT PROCEDURE: MM TOMOSYNTHESIS SCREENING [...] age 66. LOCATION: The [facility] BREAST COMPOSITION: There are scattered areas [...] BIOPSIED. Dictated by: Phyllis Lozano MD on 08/18/2024 at 15:11 Approved by: Phyllis Lozano MD on 08/18/2024 at 15:19 Dictated By: Phyllis Lozano M.D. Signed By: 08/18/24 1520 DD/ 1519 TD/TT: [facility] LouisRad[facility] Study observation (narrative)[facility] TOMOSYNTHESIS SCREENING BIOrdered By: Radiologist Radiology on 93-69-8347[facility] Work Phone: cbc W Auto Differential panel (Bld)on 08-16-2024 Basophils (Bld) [#/Vol]0.01 x10*3/uLNormal0.00-0.10UnCleveland Clinic Mercy HospitalComment on above:Result Comment: Automated WBC differential has been confirmed by manual smear.Performed By: #### 02723-6 ####WIL Villalobos'VANDANA ([id number])[facility] ([place])[address] [place] [place], [place] [address]Spavfkmkd/100 WBC (Bld)0.4 %Normal0.0-2.0UnCleveland Clinic Mercy HospitalComment on above:Performed By: #### 33743-8 ####WIL Villalobos'VANDANA ([id number])[facility] ([facility])[address] [place] [place], [place] [address]Tbiebctzwro (Bld) [#/Vol]0.33 x10*3/uLNormal0.00-0.70 [facility] CenterComment on above:Performed By: #### 03578-7 ####WIL Villalobos'VANDANA ([id number])[facility] ([facility])[address] [place] [place], [place] [address]Pbgbtuzwkdu/100 WBC (Bld)13.5 %Normal0.0-6.0 [facility] CenterComment on above:Performed By: #### 15723-8 ####WIL O'VANDANA ([id number])[facility] ([facility])[address] [place], [place] [address]Hdvgnbvfusz distribution width (RBC) [Ratio]17.3 % High11.5-14.5UnCleveland Clinic Mercy HospitalComment on above: Performed By: #### 38582-9 ####WIL HOLBROOK ([id number])[facility] ([facility])[address] [place] [place], [place] [address]Dautowlwjn (Bld) [Volume fraction] 27.5 %Low36.0-46.0UnCleveland Clinic Mercy HospitalComment on above: Performed By: #### 56991-7 ####WIL HOLBROOK ([id number])[facility] ([facility])[address] [place], [place] [address]Cyktjxveyx (Bld) [Mass/Vol]8.5 g/dL Low12.0-16.0UnCleveland Clinic Mercy HospitalComment on above: Performed By: #### 98172-8 ####WIL HOLBROOK ([id number])[facility] ([facility])[address] [place] [place], [place] [address]Uyykhqbd granulocytes (Bld) [#/Vol] 0.01 x10*3/uLNormal0.00-0.70UnCleveland Clinic Mercy HospitalComment on above:Performed By: #### 65145-0 ####WIL HOLBROOK ([id number])[facility] ([facility])[address] [place], [place] [address]Tagyxezy granulocytes/100 WBC (Bld)0.4 %Normal0.0-0.9UnCleveland Clinic Mercy HospitalComment on above:Result Comment: Immature Granulocyte Count (IG) includes promyelocytes, myelocytes and metamyelocytes but does not include bands. Percent differential counts (%) should be interpreted in the context of the absolute cell counts (cells/UL).Performed By: #### 71425-8 ####WIL HOLBROOK ([id number])[facility] ([facility])[address] [place], [place] [address]Cmjkiluywqp (Bld) [#/Vol]0.63 x10*3/uLLow1.20-4.80[facility] Medical CenterComment on above:Performed By: #### 99273-8 ####WIL HOLBROOK ([id number])[facility] ([facility])[address] [place], [place] [address]Jopdxnzhyhh/100 WBC (Bld)25.7 %Zipsbz34.0-44.0UnCleveland Clinic Mercy HospitalComment on above:Performed By: #### 84926-7 ####WIL HOLBROOK ([id number])[facility] ([facility])[address] [place], [place] [address]YPH (RBC) [Entitic mass]27.0 pcJgryzv91.0-34.0UnCleveland Clinic Mercy HospitalComment on above:Performed By: #### 82046-6 ####WIL HOLBROOK ([id number])[facility] ([facility])[address] [place], [place] [address]LYFE (RBC) [Mass/Vol]30.9 g/dLLow32.0-36.0UnCleveland Clinic Mercy HospitalComment on above:Performed By: #### 98928-7 ####WIL HOLBROOK ([id number])[facility] ([facility])[address] [place] [address] MCV (RBC) [Entitic vol]87 uDEmmyyc89-348GfpsssfkziCleveland Clinic Mercy HospitalComment on above:Performed By: #### 50242-0 ####WIL HOLBROOK ([id number])[facility] ([facility])[address] [place], [place] [address]Oeenudmvr (Bld) [#/Vol]0.55 x10*3/uLNormal0.10-1.00UnCleveland Clinic Mercy HospitalComment on above:Performed By: #### 43190-3 ####WIL HOLBROOK ([id number])[facility] ([facility])[address] [place] [address] Monocytes/100 WBC (Bld)22.4 %Normal2.0-10.0[facility] Medical CenterComment on above:Performed By: #### 38937-9 ####WIL HOLBROOK ([id number])[facility] ([facility])[address] [place] [address] Neutrophils (Bld) [#/Vol]0.92 x10*3/uLLow1.20-7.70UnCleveland Clinic Mercy HospitalComment on above:Result Comment: Percent differential counts (%) should be interpreted in the context of the absolute cell counts (cells/uL). Performed By: #### 35199-3 ####WIL HOLBROOK ([id number])[facility] ([facility])[address] [place], [place] [address]Sqccmafnxdo/100 WBC (Bld)37.6 % Cnjioc13.0-80.0[facility] Medical CenterComment on above: Performed By: #### 44312-0 ####WIL HOLBROOK ([id number])[facility] ([facility])[address] [place], [place] [address]Ltqznijqe RBC/100 WBC (Bld) [Ratio] 0.0 /100 WBCsNormal0.0-0.0[facility] Medical CenterComment on above:Performed By: #### 22256-8 ####WIL HOLBROOK (438137)[facility] ([facility])[address] [place], [place] [address]Yzvjryhaj (Bld) [#/Vol]72 x10*3/xMMoy423-797SawaslojwiCleveland Clinic Mercy HospitalComment on above:Performed By: #### 77299-8 ####WIL HOLBROOK ([id number])[facility] ([facility])[address] [place], [place] [address]GPO (Bld) [#/Vol]3.15 x10*6/uLLow4.00-5.20[facility] CenterComment on above:Performed By: #### 69057-2 ####WIL HOLBROOK ([id number])[facility] ([facility])[address] [place], [place] [address]HVN (Bld) [#/Vol]2.5 x10*3/uLLow4.4-11.3UnCleveland Clinic Mercy HospitalComment on above:Performed By: #### 51004-1 ####WIL HOLBROOK ([id number])[facility] ([facility])[address] [place], [place] [address]Ednrysosehhat metabolic 2000 panelon 45-17-1283Fmkgedk BCP dye [Mass/Vol]3.5 g/dLNormal3.4-5.0[facility] Medical CenterComment on above:Performed By: #### 24437-8 ####WIL HOLBROOK (210021)[facility] ([facility])[address] [place], [place] [address]VLV [Catalytic activity/Vol]102 U/CSkciev58-555GfaufkvyctSouthview Medical CenterComment on above:Performed By: #### 31827-5 ####WIL HOLBROOK ([id number])[facility] ([facility])[address] [place], [place] [address]CJM With P-5'-P [Catalytic activity/Vol]18 U/LNormal7-45 [facility] CenterComment on above:Result Comment: Patients treated with Sulfasalazine may generate falsely decreased results for ALT.Performed By: #### 45631-6 ####WIL HOLBROOK ([id number])[facility] ([facility])[address] [place], [place] [address]Uruwa gap [Moles/Vol]11 mmol/URivllm95-45LoskuxhmvrSouthview Medical CenterComment on above: Performed By: #### 08353-5 ####WIL HOLBROOK ([id number])[facility] ([facility])[address] [place], [place] [address]WNH With P-5'-P [Catalytic activity/Vol]32 U/LNormal9-39[facility] Comment on above:Performed By: #### 86486-0 ####WIL Villalobos'VANDANA ([id number])[facility] ([facility])[address] [place], [place] [address]Jqlxxkpmz [Mass/Vol]0.7 mg/dLNormal0.0-1.2[facility] Comment on above:Performed By: #### 36279-5 ####WIL Villalobos'VANDANA ([id number])[facility] ([facility])[address] [place], [place] [address]Zgdknmm [Mass/Vol]8.5 mg/dLLow8.6-10.3[facility] Comment on above:Performed By: #### 82767-6 ####WIL Villalobos'VANDANA ([id number])[facility] ([facility])[address] [place], [place] [address]Eukozauw [Moles/Vol]105 mmol/YFrbofz61-914CwcoqiecaqSouthview Medical Center Comment on above:Performed By: #### 25668-4 ####WIL Villalobos'VANDANA ([id number])[facility] ([facility]EX)[address] [place] [place], [place] [address]QZ4 [Moles/Vol]28 mmol/SXcuhgf99-51LivvotgcmsSouthview Medical Center Comment on above:Performed By: #### 17839-3 ####WIL Villalobos'VANDANA ([id number])[facility] (ALEX)[address] [place], [place] [address]Pinfegyalt [Mass/Vol]0.77 mg/dLNormal0.50-1.05[facility] Comment on above:Performed By: #### 91725-9 ####WIL HOLBROOK ([id number])[facility] ([facility]EX)[address] [place], [place] [address]Jftxzwfras filtration rate/1.73 sq M.xeuwxbynr67 mL/min/1.73m*2Normal>60UnCleveland Clinic Mercy HospitalComment on above:Result Comment: Calculations of estimated GFR are performed using the 2020 CKD-EPI Study Refit equation without the race variable for the IDMS-Traceable creatinine methods.https://jasn.asnjournals.org/content/early/ASN.8317761781 Performed By: #### 65018-0 ####WIL Villalobos'VANDANA ([id number])[facility] ([facility]EX)[address] [place] [place], [place] [address]Axxvxuz [Mass/Vol]107 mg/dLHigh 74-99UnCleveland Clinic Mercy HospitalComment on above:Performed By: #### 12505-3 ####WIL Villalobos'VANDANA ([id number])[facility] (ALEX)[address] [place], [place] [address]Rxpodenbw [Moles/Vol]4.5 mmol/LNormal 3.5-5.3UnCleveland Clinic Mercy HospitalComment on above:Performed By: #### 62321-6 ####WIL Villalobos'VANDANA ([id number])[facility] (ALEX)[address], [place] [address]Ipdgjmo [Mass/Vol]5.4 g/dLLow6.4-8.2 [facility] CenterComment on above:Performed By: #### 51798-4 ####WIL Villalobos'VANDANA ([id number])[facility] ([facility]EX)[address] [place], [place] [address]Qiyzbz [Moles/Vol]139 mmol/BIzatvx406-349MheucbtcwjCleveland Clinic Mercy HospitalComment on above:Performed By: #### 45231-0 ####IWL Villalobos'VANDANA ([id number])[facility] (ALEX)[address], [place] [address]Rchi nitrogen [Mass/Vol]23 mg/dLNormal6-23[facility] Medical CenterComment on above:Performed By: #### 90649-5 ####WIL Villalobos'VANDANA ([id number])[facility] (ALEX)[address], [place] [address]TRS shape Nom (Bld)on 85-27-6635Ezcwmglxsiy Ql (Bld)Mild [facility] CenterComment on above:Performed By: #### 82499-1 ####WIL Villalobos'VANDANA ([id number])[facility] (ALEX)[address], [place] [address]Gmpgfwcqkm LM Ql (Bld)[facility] The Jewish HospitalComment on above:Performed By: #### 67561-2 ####WIL Villalobos'VANDANA ([id number])[facility] (ALEX)[address], [place] [address]HZC morphology finding Nom (Bld)See BelowSelect Medical Specialty Hospital - Cincinnati NorthComment on above:Performed By: #### 79233-8 ####WIL Villalobos'VANDANA ([id number])[facility] (ALEX)[address], [place] [address]Zipshybligmc LM Ql (Bld)[facility]tering Health DaytonComment on above:Performed By: #### 11957-3 ####WIL Villalobos'VANDANA ([id number])[facility] (ALEX)[address], [place] [address]VVSAI-64 Detected/Not DetectedOrdered By: Letty Newsome on 95-71-5780DTGF-CoV-2 (COVID-19) RNA JOHANN+non-probe Ql (Nph)Not detectedNot DetectKettering Health Main CampusCOVID-19 PCR ([facility])on 13-64-6831MLLWLNH NOT DETECTEDNot detectedNot DetectNorthcrest Medical CenterComment on above:This is a duplicate RP2.1 COVID (PCR) result to be used for statistical tracking purpose only. [facility]OM[facility] HealthcareRespiratory pathogens DNA and RNA panel - Nasopharynx by JOHANN with non-probe detectionOrdered By: Letty Newsome on 51-83-3531Acqecspgtik pathogens DNA and RNA panel JOHANN+non-probe (Nph)Respiratory pathogens DNA and RNA panel - Nasopharynx by JOHANN with non-probe detectionChildren'S Hospital For Rehabilitation Respiratory pathogens DNA and RNA panel JOHANN+non-probe (Nph)[facility] For RehabilitationImmunoglobulin light chains.free panel (S)Ordered By: Ferny Fletcher on 88-38-4536Dfogkwbatakxfz light chains.kappa [Mass/Vol]mg/dLLow0.33 - 1.94 mg/dLUnTrinity Health System Twin City Medical CenterImmunoglobulin light chains.kappa/Immunoglobulin light chains.lambda (S) [Mass ratio][facility] HospitalComment on above:One or more analytes used in this calculation is outside of the analytical measurement range. Calculation cannot be performed. Immunoglobulin light chains.lambda [Mass/Vol]mg/dLLow0.57 - 2.63 mg/dLUnTrinity Health System Twin City Medical CenterInterpretation and review of laboratory resultsAbnormal [facility] HospitalUndetected antigen excess is a rare event but [...] anomalies should be discussed with the testing laboratory.[facility]icothe HospitalUnTrinity Health System Twin City Medical CenterCB W Auto Differential panel (Bld)on 01-22-7577Qkekyxhbb (Bld) [#/Vol]0.01 10*3/[facility] HospitalBasophils/100 WBC (Bld)0.3 %0.0 - 2.0 %[facility] HospitalEosinophils (Bld) [#/Vol] 0.14 10*3/[facility] HospitalEosinophils/100 WBC (Bld)4.8 %0.0 - 6.0 %[facility] HospitalErythrocyte distribution width (RBC) [Ratio]17.5 %High11.5 - 14.5 %[facility] HospitalHematocrit (Bld) [Volume fraction]28.6 %Low36.0 - 46.0 %[facility] Hemoglobin (Bld) [Mass/Vol]8.9 g/dLLow12.0 - 16.0 g/dLUnTrinity Health System Twin City Medical CenterImhannibal regional hospital granulocytes (Bld) [#/Vol]0.01 10*3/[facility] HospitalImhannibal regional hospital granulocytes/100 WBC (Bld)0.3 %0.0 - 0.9 %[facility] on above:Immature Granulocyte Count (IG) includes promyelocytes, myelocytes and metamyelocytes but does not include bands. Percent differential counts (%) should be interpreted in the context of the absolute c ell counts (cells/UL).Interpretation and review of laboratory resultsAbnormal [facility] HospitalLymphocytes (Bld) [#/Vol]0.75 10*3/[facility] Children[facility] HospitalLymphocytes/100 WBC (Bld)25.9 %13.0 - 44.0 % [facility] CenterH (RBC) [Entitic mass]27.1 pg26.0 - 34.0 pg [facility] CenterHC (RBC) [Mass/Vol]31.1 g/dLLow32.0 - 36.0 g/dLUnSt. Vincent HospitalV (RBC) [Entitic vol]87 fL80 - 100 fL [facility] HospitalMonocytes (Bld) [#/Vol]0.59 10*3/[facility] HospitalMonocytes/100 WBC (Bld)20.3 %2.0 - 10.0 %[facility] HospitalNeutrophils (Bld) [#/Vol]1.40 10*3/[facility] on above:Percent differential counts (%) should be interpreted in the context of the absolute cell counts (cells/uL). Neutrophils/100 WBC (Bld)48.4 %40.0 - 80.0 %[facility] Nucleated RBC/100 WBC (Bld) [Ratio]0.0 %[facility] Platelets (Bld) [#/Vol]78 10*3/[facility] HospitalRBC (Bld) [#/Vol]3.29 10*6/[facility] HospitalWBC (Bld) [#/Vol]2.9 10*3/[facility] HospitalUnTrinity Health System Twin City Medical Center Basophils (Bld) [#/Vol]0.01 x10*3/uLNormal0.00-0.10[facility] CenterComment on above:Performed By: #### 41633-7 ####WIL HOLBROOK ([id number])[facility] (ALEX)[address], [place] [address]Urxablhol/100 WBC (Bld)0.3 %Normal0.0-2.0UnCleveland Clinic Mercy HospitalComment on above:Performed By: #### 34590-1 ####WIL HOLBROOK ([id number])[facility] (ALEX)[address] [place] [address] Eosinophils (Bld) [#/Vol]0.14 x10*3/uLNormal0.00-0.70UnCleveland Clinic Mercy HospitalComment on above:Performed By: #### 36766-0 ####WIL HOLBROOK ([id number])[facility] (ALEX)[address] [place], [place] [address]Quybfcwgtqo/100 WBC (Bld)4.8 %Normal0.0-6.0UnCleveland Clinic Mercy HospitalComment on above:Performed By: #### 18983-4 ####WIL HOLBROOK ([id number])[facility] (ALEX)[address], [place] [address]Nntfsuaefbt distribution width (RBC) [Ratio]17.5 %High11.5-14.5 [facility] CenterComment on above:Performed By: #### 85775-2 ####WIL HOLBROOK ([id number])[facility] (ALEX)[address], [place] [address]Pphwchixnl (Bld) [Volume fraction]28.6 %Low 36.0-46.0[facility] Medical CenterComment on above:Performed By: #### 37941-3 ####WIL HOLBROOK ([id number])[facility] (ALEX)[address], [place] [address]Dpjvhlnhph (Bld) [Mass/Vol]8.9 g/dLLow 12.0-16.0UnCleveland Clinic Mercy HospitalComment on above:Performed By: #### 39185-9 ####WIL HOLBROOK ([id number])[facility] (ALEX)[address], [place] [address]Azxbkhza granulocytes (Bld) [#/Vol]0.01 x10*3/uLNormal0.00-0.70UnCleveland Clinic Mercy HospitalComment on above:Performed By: #### 98013-7 ####WIL HOLBROOK ([id number])[facility] (ALEX)[address], [place] [address]Pgaveidi granulocytes/100 WBC (Bld)0.3 %Normal0.0-0.9[facility] Medical CenterComment on above:Result Comment: Immature Granulocyte Count (IG) includes promyelocytes, myelocytes and metamyelocytes but does not include bands. Percent differential counts (%) should be interpreted in the context of the absolute cell counts (cells/UL).Performed By: #### 97896-6 ####WIL HOLBROOK ([id number])[facility] (ALEX)[address], [place] [address]Jtyefmfmmbm (Bld) [#/Vol]0.75 x10*3/uLLow1.20-4.80[facility] Comment on above:Performed By: #### 54618-0 ####WIL HOLBROOK ([id number])[facility] (ALEX)[address] [place] [address] Lymphocytes/100 WBC (Bld)25.9 %Islvpf80.0-44.0[facility] Medical CenterComment on above:Performed By: #### 99633-1 ####WIL HOLBROOK ([id number])[facility] (ALEX)[address] [place] [address] MCH (RBC) [Entitic mass]27.1 arMiesvy57.0-34.0UnCleveland Clinic Mercy HospitalComment on above:Performed By: #### 41333-7 ####WIL Villalobos'VANDANA (467505)[facility] (ALEX)[address] [place] [address] MCHC (RBC) [Mass/Vol]31.1 g/dLLow32.0-36.0UnCleveland Clinic Mercy HospitalComment on above:Performed By: #### 56630-4 ####WIL Villalobos'VANDANA ([id number])[facility] (ALEX)[address] [place] [address] MCV (RBC) [Entitic vol]87 hTYzpvoh10-779VdpokylmmhSouthview Medical CenterComment on above:Performed By: #### 46842-8 ####WIL Villalobos'VANDANA ([id number])[facility] (ALEX)[address], [place] [address]Wuwcpeaiz (Bld) [#/Vol]0.59 x10*3/uLNormal0.10-1.00UnCleveland Clinic Mercy HospitalComment on above:Performed By: #### 80871-6 ####WIL Villalobos'VANDANA ([id number])[facility] (ALEX)[address] [place] [address] Monocytes/100 WBC (Bld)20.3 %Normal2.0-10.0UnCleveland Clinic Mercy HospitalComment on above:Performed By: #### 35219-7 ####WIL HOLBROOK ([id number])[facility] (ALEX)[address] [place] [address] Neutrophils (Bld) [#/Vol]1.40 x10*3/uLNormal1.20-7.70[facility] Medical CenterComment on above:Result Comment: Percent differential counts (%) should be interpreted in the context of the absolute cell counts (cells/uL).Performed By: #### 58248-1 ####WIL HOLBROOK ([id number])[facility] (ALEX)[address], [place] [address]Somowlisurl/100 WBC (Bld)48.4 %Wriyqu44.0-80.0[facility] Medical CenterComment on above:Performed By: #### 72069-9 ####WIL HOLBROOK ([id number])[facility] (ALEX)[address], [place] [address]Egsxxijqq RBC/100 WBC (Bld) [Ratio]0.0 /100 WBCsNormal0.0-0.0[facility] CenterComment on above:Performed By: #### 47487-9 ####WIL HOLBROOK ([id number])[facility] (ALEX)[address] [place], [place] [address]Tveokywqw (Bld) [#/Vol]78 x10*3/iJAkp728-078DioixdivopCleveland Clinic Mercy Hospital Comment on above:Performed By: #### 55059-3 ####WIL HOLBROOK ([id number])[facility] (ALEX)[address], [place] [address]EEP (Bld) [#/Vol]3.29 x10*6/uLLow4.00-5.20[facility] Comment on above:Performed By: #### 61078-9 ####WIL HOLBROOK ([id number])[facility] (ALEX)[address], [place] [address]MGC (Bld) [#/Vol]2.9 x10*3/uLLow4.4-11.3[facility] Comment on above:Performed By: #### 56915-4 ####WIL HOLBROOK ([id number])[facility] (ALEX)[address] [place], [place] [address]Rqrvrcvdcqecx metabolic 2000 panelon 97-60-3043Zvuiuue BCP dye [Mass/Vol]3.5 g/dL3.4 - 5.0 g/dLUnTrinity Health System Twin City Medical CenterALP [Catalytic activity/Vol]106 U/L33 - 136 U/[facility] CenterALT With P-5'-P [Catalytic activity/Vol]26 U/L7 - 45 U/[facility] on above:Patients treated with Sulfasalazine may generate falsely decreased results for ALT.Anion gap [Moles/Vol]11 mmol/L10 - 20 mmol/[facility] Medical CenterAST With P-5'-P [Catalytic activity/Vol]43 U/LHigh9 - 39 U/[facility] CenterBilirubin [Mass/Vol]0.7 mg/dL0.0 - 1.2 mg/dLUnTrinity Health System Twin City Medical CenterCalcium [Mass/Vol]8.8 mg/dL8.6 - 10.3 mg/dLUnTrinity Health System Twin City Medical CenterChloride [Moles/Vol]104 mmol/L98 - 107 mmol/[facility] Medical CenterCO2 [Moles/Vol]26 mmol/L21 - 32 mmol/[facility] Creatinine [Mass/Vol]0.82 mg/dL0.50 - 1.05 mg/dLChillicothe HospitalGFR/1.73 sq M.predicted among non-blacks MDRD (S/P/Bld) [Vol rate/Area] 79 mL/min/{1.73_m2}- [facility]ITALniPark[facility] Health on above: Calculations of estimated GFR are performed using the 2020 CKD-EPI Study Refit equation without therace variable for the IDMS-Traceable creatinine methods. https://jasn.asnjournals.org/content//ASN.3373061590 Glucose [Mass/Vol]96 mg/dL74 - 99 mg/dLUnTrinity Health System [facility] Center Interpretation and review of laboratory resultsAbnormalUniTriHealth McCullough-Hyde Memorial HospitalPotassium [Moles/Vol]4.2 mmol/L3.5 - 5.3 mmol/[facility] Medical CenterProtein [Mass/Vol]5.6 g/dLLow6.4 - 8.2 g/dLUnTrinity Health System Twin City Medical CenterSodium [Moles/Vol]137 mmol/L136 - 145 mmol/[facility] Medical CenterUrea nitrogen [Mass/Vol]23 mg/dL6 - 23 mg/dLUnTrinity Health System Twin City Medical CenterUnTrinity Health [facility] Medical CenterAlbumin BCP dye [Mass/Vol]3.5 g/dL Normal3.4-5.0UnCleveland Clinic Mercy HospitalComment on above: Performed By: #### 61200-2 ####WIL HOLBROOK ([id number])[facility] (ALEX)[address], [place] [address]ZAO [Catalytic activity/Vol]106 U/L Vxazkd49-739YpskqotjkxCleveland Clinic Mercy HospitalComment on above: Performed By: #### 59406-8 ####WIL HOLBROOK ([id number])[facility] (ALEX)[address], [place] [address]GBJ With P-5'-P [Catalytic activity/Vol]26 U/LNormal7-45[facility] Comment on above:Result Comment: Patients treated with Sulfasalazine may generate falsely decreased results for ALT.Performed By: #### 09315-6 ####WIL HOLBROOK ([id number])[facility] (ALEX)[address] [place], [place] [address]Kckme gap [Moles/Vol]11 mmol/PHiwcln26-91LvlezxasmdSouthview Medical CenterComment on above:Performed By: #### 51234-5 ####WIL HOLBROOK ([id number])[facility] (ALEX)[address] [place] [address] AST With P-5'-P [Catalytic activity/Vol]43 U/LHigh9-39[facility] CenterComment on above:Performed By: #### 30091-9 ####WIL HOLBROOK ([id number])[facility] (ALEX)[address], [place] [address]Sarwnqucw [Mass/Vol]0.7 mg/dLNormal0.0-1.2[facility] CenterComment on above:Performed By: #### 92689-2 ####WIL HOLBROOK ([id number])[facility] (ALEX)[address] [place] [address] Calcium [Mass/Vol]8.8 mg/dLNormal8.6-10.3[facility] Medical CenterComment on above:Performed By: #### 14082-5 ####WIL HOLBROOK ([id number])[facility] (ALEX)[address], [place] [address]Tipuginc [Moles/Vol]104 mmol/AThiawe41-244SjnlpbnlroSouthview Medical Center Comment on above:Performed By: #### 87446-1 ####WIL HOLBROOK ([id number])[facility] (ALEX)[address], [place] [address]GS0 [Moles/Vol]26 mmol/OCbfhzq88-11FpzpqimldmSouthview Medical Center Comment on above:Performed By: #### 51042-9 ####WIL HOLBROOK ([id number])[facility] (ALEX)[address] [place], [place] [address]Tlyqwhjobd [Mass/Vol]0.82 mg/dLNormal0.50-1.05[facility] Comment on above:Performed By: #### 10251-3 ####WIL HOLBROOK ([id number])[facility] (ALEX)[address], [place] [address]Xqeqooophk filtration rate/1.73 sq M.zkmobeojy23 mL/min/1.73m*2Normal>60UnCleveland Clinic Mercy HospitalComment on above:Result Comment: Calculations of estimated GFR are performed using the 2020 CKD-EPI Study Refit equation without the race variable for the IDMS-Traceable creatinine methods.https://jasn.asnjournals.org/content//ASN.7684098389 Performed By: #### 07115-1 ####WIL HOLBROOK ([id number])[facility] (ALEX)[address], [place] [address]Wwxdsne [Mass/Vol]96 mg/dLNormal 74-99UnCleveland Clinic Mercy HospitalComment on above:Performed By: #### 03107-4 ####WIL HOLBROOK ([id number])[facility] (ALEX)[address] [place], [place] [address]Diulaclgm [Moles/Vol]4.2 mmol/LNormal 3.5-5.3UnCleveland Clinic Mercy HospitalComment on above:Performed By: #### 25456-6 ####WIL HOLBROOK ([id number])[facility] (ALEX)[address], [place] [address]Vpityas [Mass/Vol]5.6 g/dLLow6.4-8.2 [facility] CenterComment on above:Performed By: #### 19337-6 ####WIL HOLBROOK ([id number])[facility] (ALEX)[address], [place] [address]Faauog [Moles/Vol]137 mmol/GTwzces261-157TozmcsjyfdCleveland Clinic Mercy HospitalComment on above:Performed By: #### 41435-4 ####WIL HOLBROOK ([id number])[facility] (ALEX)[address], [place] [address]Ordu nitrogen [Mass/Vol]23 mg/dLNormal6-23UnCleveland Clinic Mercy HospitalComment on above:Performed By: #### 70156-8 ####WIL HOLBROOK ([id number])[facility] ([facility])[address] [place], [place] [address]AKCWXYRWNTRMZOV (IGG, IGA, IGM)on 74-76-9562MyO [Mass/Vol] mg/rVKkt89-166HsmhblmonxSouthview Medical CenterComment on above: Order Comment: MONOCLONAL PROTEINS MAY CAUSE FALSELY LOWRESULTS IN THIS ASSAY. SERUM PROTEINELECTROPHORESIS SHOULD BE DONE THEFIRST TEST TO EVALUATE MONOCLONAL GAMMOPATHY.Performed By: #### IGS ####ARNULFO Roger ([id number])[facility] ([facility])[address] [place] [address]TzS [Mass/Vol]529 mg/dMWwg857-3605RowwjghokpCleveland Clinic Mercy HospitalComment on above: Order Comment: MONOCLONAL PROTEINS MAY CAUSE FALSELY LOWRESULTS IN THIS ASSAY. SERUM PROTEINELECTROPHORESIS SHOULD BE DONE THEFIRST TEST TO EVALUATE MONOCLONAL GAMMOPATHY.Performed By: #### IGS ####ARNULFO Roger ([id number])[facility] ([facility])[address] [place], [place] [address]DuW [Mass/Vol]mg/dL Hrk79-574OowyoggclkCleveland Clinic Mercy HospitalComment on above:Order Comment: MONOCLONAL PROTEINS MAY CAUSE FALSELY LOWRESULTS IN THIS ASSAY. SERUM PROTEINELECTROPHORESIS SHOULD BE DONE THEFIRST TEST TO EVALUATE MONOCLONAL GAMMOPATHY.Performed By: #### IGS ####ARNULFO Roger ([id number])[facility] ([facility])[address] [place] [address]Okecgjjdurnlin light chains.free panel (S)on 28-66-4240Lazygwlnntmvnw light chains.kappa [Mass/Vol]<0.08Low 0.33-1.94[facility] Medical CenterComment on above:Order Comment: Undetected antigen [...] be discussedwith the testing laboratory.Performed By: #### 62794-8 ####ARNULFO Roger ([id number])[facility] ([facility])[address] [place] [address]Gmmafaalcucest light chains.kappa/Immunoglobulin light chains.lambda (S) [Mass ratio]Normal [facility] Medical CenterComment on above:Order Comment: Undetected antigen [...] measurement range.Calculation cannot be performed.Performed By: #### 11120-5 ####ARNULFO Roger ([id number])[facility] ([facility])[address] [place] [address]Mwzoybrttvilkb light chains.lambda [Mass/Vol]<0.17Low 0.57-2.63[facility] Medical CenterComment on above:Order Comment: Undetected antigen [...] be discussedwith the testing laboratory.Performed By: #### 96232-2 ####ARNULFO Roger ([id number])[facility] ([facility])[address] [place] [address]Xdajqbqvwsgwhzh (IgG, IgA, IgM)Ordered By: Moy Kwong on 23-72-3460EoU [Mass/Vol]mg/dL Low70 - 400 mg/dLChillicothe HospitalIgG [Mass/Vol]529 mg/dEEma884 - 1600 mg/dLChillicothe HospitalIgM [Mass/Vol]mg/dLLow40 - 230 mg/dLUnTrinity Health System Twin City Medical CenterInterpretation and review of laboratory resultsAbnoKettering Health HamiltonMONOCLONAL PROTEINS MAY CAUSE FALSELY LOW RESULTS IN THIS ASSAY. SERUM PROTEIN ELECTROPHORESIS SHOULD BE DONE THE FIRST TEST TO EVALUATE MONOCLONAL GAMMOPATHY.[facility] HospitalProteinon 08-91-1962Tracrhq [Mass/Vol]5.5 g/dL Low6.4-8.2UnCleveland Clinic Mercy HospitalComment on above: Performed By: #### 2885-2 ####ARNULFO Roger ([id number])[facility] ([facility])[address] [place] [address]Rhfubgq electrophoresis panelon 07-26-2024 Albumin [Mass/Vol]3.3 g/dLLow3.4-5.0UnCleveland Clinic Mercy HospitalComment on above:Performed By: #### 00837-5 ####ARNULFO Roger ([id number])[facility] ([facility])[address] [place] [address]KZWQG 1 GLOBULIN0.3 g/dLNormal0.2-0.6UnCleveland Clinic Mercy HospitalComment on above: Performed By: #### 35531-6 ####ARNULFO Roger ([id number])[facility] ([facility])[address] [place] [address]KXFQM 2 GLOBULIN0.7 g/dLNormal0.4-1.1[facility] Medical CenterComment on above:Performed By: #### 09177-4 ####ARNULFO Roger ([id number])[facility] ([facility])[address] [place] [address]PYQK GLOBULIN0.7 g/dLNormal0.5-1.2UnCleveland Clinic Mercy HospitalComment on above:Performed By: #### 14376-5 ####ARNULFO Roger ([id number])[facility] ([facility])[address] [place], [place] [address]MYFBQ GLOBULIN0.5 g/dLNormal0.5-1.4[facility] Medical CenterComment on above: Performed By: #### 61582-2 ####ARNULFO Roger ([id number])[facility] ([facility])[address] [place] [address]24[address]RGVG REVIEW-SERUM PROTEIN ELECTROPHORESIS Reviewed and approved by CASS FREEDMAN on 07/28/24 at 9:40 AM.[facility] Health CenterComment on above:Performed By: #### 45128-4 ####ARNULFO Roger ([id number])[facility] ([facility])[address] [place] [address]MHTIEWN ELECTROPHORESIS COMMENTSEE COMMENTNormalUToledo HospitalComment on above:Result Comment: Hypoalbuminemia. Performed By: #### 52272-2 ####ARNULFO Roger ([id number])[facility] ([facility])[address] [place] [address]BSP51dk 56-83-9323Bgkkipqhrde Rate : 76 BPM Atrial Rate : 76 BPM P-R Interval : 166 ms QRS Duration : 78 ms Q-T Interval : 366 ms QTC Calculation(Bazett) : 411 ms Calculated P [place] : 46 degrees Calculated R [place] : 14 degrees Calculated T [place] : 31 degrees NORMAL SINUS RHYTHM NORMAL ECG Confirmed by CRYSTAL MCKAY M.D. ([id number]) on 07/20/2024 10:23:07 PM NAME : MOJGAN PÉREZ PID : [id number] : 1955 Gender : Female Race : [...] Referred By : SELF, Acquired by : ,CCFRadiology, Radiologist, - 07/20/2024 Ventricular Rate : 76 BPM Atrial Rate : 76 BPM P-R Interval : 166 ms QRS Duration : 78 ms Q-T Interval : 366 ms QTC Calculation(Bazett) : 411 ms Calculated P [place] : 46 degrees Calculated R [place] : 14 degrees Calculated T [place] : 31 degrees NORMAL SINUS RHYTHM NORMAL ECG Confirmed by CRYSTAL MCKAY M.D. ([id number]) on 07/20/2024 10:23:07 PM NAME : MOJGAN PÉREZ PID : [id number] : 1955 Gender : Female Race : [...] By : SELF, [facility] : [id number] By: Radiologist Radiology on [id number] W-[address] Work Phone: ECG01on [id number] Study observation (narrative)[facility] Differential panel (Bld)on 07-05-2024 Basophils (Bld) [#/Vol]0.01 x10*3/uLNormal0.00-0.10[facility] CenterComment on above:Performed By: #### [id number] ####WIL HOLBROOK ([id number])[facility] (ALEX)[address] [place], [place] [address]Wppjftwpi/100 WBC (Bld)0.3 %Normal0.0-2.0UnCleveland Clinic Mercy HospitalComment on above:Performed By: #### 46986-1 ####WIL HOLBROOK ([id number])[facility] (ALEX)[address] [place] [address] Eosinophils (Bld) [#/Vol]0.10 x10*3/uLNormal0.00-0.70UnCleveland Clinic Mercy HospitalComment on above:Performed By: #### [id number] ####WIL HOLBROOK ([id number])[facility] (ALEX)[address] [place], [place] [address]Akidhujxfho/100 WBC (Bld)3.0 %Normal0.0-6.0UnCleveland Clinic Mercy HospitalComment on above:Performed By: #### 24079-4 ####WIL Villalobos'VANDANA ([id number])[facility] (ALEX)[address] [place], [place] [address]Wbixjlqitbq distribution width (RBC) [Ratio]17.8 %High11.5-14.5 [facility] CenterComment on above:Performed By: #### [id number] ####WIL Villalobos'VANDANA ([id number])[facility] (ALEX)[address] [place], [place] [address]Lxkijftyfi (Bld) [Volume fraction]28.7 %Low 36.0-46.0UnCleveland Clinic Mercy HospitalComment on above:Performed By: #### 99110-7 ####WIL Villalobos'VANDANA ([id number])[facility] (ALEX)[address] [place], [place] [address]Oplxpdzmjh (Bld) [Mass/Vol]9.0 g/dLLow 12.0-16.0UnCleveland Clinic Mercy HospitalComment on above:Performed By: #### 18685-7 ####WIL Villalobos'VANDANA ([id number])[facility] (ALEX)[address] [place], [place] [address]Jnblddwo granulocytes (Bld) [#/Vol]0.05 x10*3/uLNormal0.00-0.70UnCleveland Clinic Mercy HospitalComment on above:Performed By: #### 18012-7 ####WILSeun HOLBROOK ([id number])[facility] (ALEX)[address] [place], [place] [address]Jovvuzka granulocytes/100 WBC (Bld)1.5 %High0.0-0.9[facility] Medical CenterComment on above:Result Comment: Immature Granulocyte Count (IG) includes promyelocytes, myelocytes and metamyelocytes but does not include bands. Percent differential counts (%) should be interpreted in the context of the absolute cell counts (cells/UL).Performed By: #### 86728-8 ####WIL HOLBROOK ([id number])[facility] ([facility]EX)[address] [place], [place] [address]Wcezyhfveaj (Bld) [#/Vol]0.78 x10*3/uLLow1.20-4.80[facility] Comment on above:Performed By: #### 75276-4 ####WIL HOLBROOK ([id number])[facility] (ALEX)[address] [place] [address] Lymphocytes/100 WBC (Bld)23.6 %Iziwrz15.0-44.0UnCleveland Clinic Mercy HospitalComment on above:Performed By: #### 36615-4 ####WIL HOLBROOK ([id number])[facility] ([facility]EX)[address] [place] [address] MCH (RBC) [Entitic mass]27.9 txEgwnzb81.0-34.0UnCleveland Clinic Mercy HospitalComment on above:Performed By: #### 58259-4 ####WIL HOLBROOK ([id number])[facility] (ALEX)[address] [place] [address] MCHC (RBC) [Mass/Vol]31.4 g/dLLow32.0-36.0UnCleveland Clinic Mercy HospitalComment on above:Performed By: #### 93112-4 ####WIL HOLBROOK ([id number])[facility] ([facility]EX)[address] [place] [address] MCV (RBC) [Entitic vol]89 pKArqemy54-855SiexyvautdSouthview Medical CenterComment on above:Performed By: #### 32369-6 ####WIL HOLBROOK ([id number])[facility] ([facility]EX)[address] [place], [place] [address]Lwvehpvkc (Bld) [#/Vol]0.59 x10*3/uLNormal0.10-1.00[facility] Medical CenterComment on above:Performed By: #### 25673-7 ####WIL HOLBROOK ([id number])[facility] ([facility]EX)[address] [place] [address] Monocytes/100 WBC (Bld)17.9 %Normal2.0-10.0[facility] Medical CenterComment on above:Performed By: #### 94979-5 ####WIL HOLBROOK ([id number])[facility] ([facility]EX)[address] [place] [address] Neutrophils (Bld) [#/Vol]1.77 x10*3/uLNormal1.20-7.70UnCleveland Clinic Mercy HospitalComment on above:Result Comment: Percent differential counts (%) should be interpreted in the context of the absolute cell counts (cells/uL).Performed By: #### 95893-2 ####WIL HOLBROOK ([id number])[facility] ([facility]EX)[address] [place] [address]Gdfhtnunvdj/100 WBC (Bld)53.7 %Yqxhkd77.0-80.0[facility] Medical CenterComment on above:Performed By: #### 04277-0 ####WIL HOLBROOK ([id number])[facility] ([facility]EX)[address] [place], [place] [address]Gkbafhcvc RBC/100 WBC (Bld) [Ratio]0.0 /100 WBCsNormal0.0-0.0[facility] Medical CenterComment on above:Performed By: #### 86231-1 ####WIL HOLBROOK ([id number])[facility] ([facility])[address] [place], [place] [address]Qrmbsfknj (Bld) [#/Vol]74 x10*3/vQGok543-993XglflbyofjCleveland Clinic Mercy Hospital Comment on above:Performed By: #### 29036-1 ####WIL HOLBROOK ([id number])[facility] ([facility]EX)[address] [place], [place] [address]QMR (Bld) [#/Vol]3.23 x10*6/uLLow4.00-5.20[facility] Comment on above:Performed By: #### 64889-6 ####WIL HOLBROOK ([id number])[facility] ([facility]EX)[address] [place] [address]NJT (Bld) [#/Vol]3.3 x10*3/uLLow4.4-11.3[facility] Comment on above:Performed By: #### 34590-8 ####WIL HOLBROOK (511704)[facility] ([facility]EX)[address] [place] [address]Afzwykuljrvfo metabolic 2000 panelon 90-67-5637Grfflph BCP dye [Mass/Vol]3.3 g/dLLow3.4-5.0 [facility] Medical CenterComment on above:Performed By: #### 86032-4 ####WIL HOLBROOK ([id number])[facility] ([facility]EX)[address] [place], [place] [address]CPZ [Catalytic activity/Vol]126 U/HSkzemz72-431 [facility] CenterComment on above:Performed By: #### 72419-6 ####WIL HOLBROOK ([id number])[facility] ([facility]EX)[address] [place], [place] [address]SRT With P-5'-P [Catalytic activity/Vol]17 U/L Normal7-45[facility] Medical CenterComment on above:Result Comment: Patients treated with Sulfasalazine may generate falsely decreased results for ALT.Performed By: #### 50986-9 ####WIL HOLBROOK ([id number])[facility] ([facility]EX)[address] [place], [place] [address]Dxugf gap [Moles/Vol]14 mmol/RZirndx16-27AvkccbzmusSouthview Medical Center Comment on above:Performed By: #### 97580-8 ####WIL HOLBROOK ([id number])[facility] ([facility]EX)[address] [place], [place] [address]JFO With P-5'-P [Catalytic activity/Vol]30 U/LNormal9-39[facility] Medical CenterComment on above:Performed By: #### 35503-7 ####WIL Villalobos'VANDANA (006172)[facility] ([facility]EX)[address] [place] [address] Bilirubin [Mass/Vol]0.6 mg/dLNormal0.0-1.2[facility] Medical CenterComment on above:Performed By: #### 05742-8 ####WIL HOLBROOK ([id number])[facility] ([facility]EX)[address] [place] [address] Calcium [Mass/Vol]8.4 mg/dLLow8.6-10.3[facility] Medical CenterComment on above:Performed By: #### 18630-7 ####WIL HOLBROOK ([id number])[facility] ([facility]EX)[address] [place], [place] [address]Mwdojfzs [Moles/Vol]102 mmol/CYtzqhl35-101GlypvsujebSouthview Medical Center Comment on above:Performed By: #### 56621-5 ####WIL Villalobos'VANDANA ([id number])[facility] ([facility]EX)[address] [place], [place] [address]VB7 [Moles/Vol]26 mmol/UVykkhm59-62YpjpyxbeolSouthview Medical Center Comment on above:Performed By: #### 21868-7 ####WIL Villalobos'VANDANA ([id number])[facility] ([facility]EX)[address] [place], [place] [address]Icqxdyqqct [Mass/Vol]0.75 mg/dLNormal0.50-1.05UnC[facility] Clinic Mercy Hospital Comment on above:Performed By: #### 11535-6 ####WIL Villalobos'VANDANA ([id number])[facility] ([facility]EX)[address] [place], [place] [address]Nhozdxoddt filtration rate/1.73 sq M.mkfeqlrla06 mL/min/1.73m*2Normal>60UnCleveland Clinic Mercy HospitalComment on above:Result Comment: Calculations of estimated GFR are performed using the 2020 CKD-EPI Study Refit equation without the race variable for the IDMS-Traceable creatinine methods.https://jasn.asnjournals.org/content//ASN.4766993302 Performed By: #### 22390-4 ####WIL Villalobos'VANDANA ([id number])[facility] ([facility]EX)[address] [place], [place] [address]Mpnlelb [Mass/Vol]101 mg/dLHigh 74-99UnCleveland Clinic Mercy HospitalComment on above:Performed By: #### 59809-0 ####WIL Villalobos'VANDANA ([id number])[facility] ([facility]EX)[address] [place], [place] [address]Sxvlmyaox [Moles/Vol]4.5 mmol/LNormal 3.5-5.3UnCleveland Clinic Mercy HospitalComment on above:Performed By: #### 64402-8 ####WIL Villalobos'VANDANA ([id number])[facility] ([facility]EX)[address] [place], [place] [address]Fdyqvsf [Mass/Vol]5.5 g/dLLow6.4-8.2 [facility] Medical CenterComment on above:Performed By: #### 68355-9 ####WIL HOLBROOK ([id number])[facility] ([facility]EX)[address] [place], [place] [address]Ruxdek [Moles/Vol]137 mmol/BQxrfdz571-196ZwxdnyalgdSouthview Medical CenterComment on above:Performed By: #### 69391-5 ####WIL HOLBROOK (788304)[facility] ([facility]EX)[address] [place], [place] [address]Qupx nitrogen [Mass/Vol]27 mg/dLHigh6-23[facility] Medical CenterComment on above:Performed By: #### 38301-2 ####WIL HOLBROOK ([id number])[facility] ([facility]EX)[address] [facility] [address]SSWZINPCTEOSJNK (IGG, IGA, IGM)on 80-03-6181FmU [Mass/Vol] mg/bWQyr55-869RgmcgompprSouthview Medical CenterComment on above: Order Comment: MONOCLONAL PROTEINS MAY CAUSE FALSELY LOWRESULTS IN THIS ASSAY. SERUM PROTEINELECTROPHORESIS SHOULD BE DONE THEFIRST TEST TO EVALUATE MONOCLONAL GAMMOPATHY.Performed By: #### IGS ####ARNULFO Roger ([id number])[facility] ([facility])[address] [facility] [place], [place] [address]NlV [Mass/Vol]451 mg/tIWyz976-3353OcyckmizwiCleveland Clinic Mercy HospitalComment on above: Order Comment: MONOCLONAL PROTEINS MAY CAUSE FALSELY LOWRESULTS IN THIS ASSAY. SERUM PROTEINELECTROPHORESIS SHOULD BE DONE THEFIRST TEST TO EVALUATE MONOCLONAL GAMMOPATHY.Performed By: #### IGS ####ARNULOF Roger ([id number])[facility] ([facility])[address] [facility], [place] [address]GeG [Mass/Vol]mg/dL Xbk78-075CgnvfvapdeSouthview Medical CenterComment on above:Order Comment: MONOCLONAL PROTEINS MAY CAUSE FALSELY LOWRESULTS IN THIS ASSAY. SERUM PROTEINELECTROPHORESIS SHOULD BE DONE THEFIRST TEST TO EVALUATE MONOCLONAL GAMMOPATHY.Performed By: #### IGS ####ARNULFO Roger ([id number])[facility] ([facility])[address] [place], [place] [address]Tnxaijdlxqvnbx light chains.free panel (S)on 27-70-6033Kbodrivpbokvhi light chains.kappa [Mass/Vol]<0.08Low 0.33-1.94[facility] Medical CenterComment on above:Order Comment: Undetected antigen [...] be discussedwith the testing laboratory.Performed By: #### 14927-1 ####ARNULFO Roger (32143)[facility] ([facility])[address] [place] [address]Pbmhviuwlwnzdm light chains.kappa/Immunoglobulin light chains.lambda (S) [Mass ratio]Normal [facility] Medical CenterComment on above:Order Comment: Undetected antigen [...] measurement range.Calculation cannot be performed.Performed By: #### 12452-1 ####ARNULFO Roger ([id number])[facility] ([facility])[address] [place] [address]Zhbjenjkajiril light chains.lambda [Mass/Vol]<0.17Low 0.57-2.63[facility] Medical CenterComment on above:Order Comment: Undetected antigen [...] be discussedwith the testing laboratory.Performed By: #### 13469-6 ####ARNULFO Roger ([id number])[facility] ([facility])[address] [place], [place] [address]Hqtilko dehydrogenaseon 26-02-9803AFE Lactate to pyruvate reaction [Catalytic activity/Vol]246 U/DAooxft24-272AweaflucdeSouthview Medical Center Comment on above:Performed By: #### 75361-0 ####WIL HOLBROOK ([id number])[facility] ([facility])[address] [place], [place] [address]Gndmchkzw 45-75-6948Walpmim [Mass/Vol]5.2 g/dLLow6.4-8.2UnCleveland Clinic Mercy HospitalComment on above:Performed By: #### 2885-2 ####ARNULFO Roger ([id number])[facility] ([facility])[address] [place], [place] [address]Ntobdxj electrophoresis panelon 63-74-6283Tselhrk [Mass/Vol]3.2 g/dLLow3.4-5.0UnCleveland Clinic Mercy HospitalComment on above:Performed By: #### 23253-1 ####ARNULFO Roger ([id number])[facility] ([facility])[address] [place], [place] [address]TYPTV 1 GLOBULIN0.3 g/dLNormal0.2-0.6UnCleveland Clinic Mercy HospitalComment on above:Performed By: #### 17431-0 ####ARNULFO Roger ([id number])[facility] ([facility])[address] [place], [place] [address]ZBELD 2 GLOBULIN0.7 g/dLNormal0.4-1.1[facility] Comment on above:Performed By: #### 39617-5 ####ARNULFO Roger ([id number])[facility] ([facility])[address] [place] [address]AQGN GLOBULIN0.7 g/dLNormal0.5-1.2[facility] Medical CenterComment on above: Performed By: #### 71429-7 ####ARNULFO Roger ([id number])[facility] ([facility])[address] [place] [address]CGAKK GLOBULIN0.3 g/dLLow0.5-1.4[facility] Medical CenterComment on above:Performed By: #### 27049-8 ####ARNULFO Roger ([id number])[facility] ([facility])[address] [place] [address]KLWD REVIEW-SERUM PROTEIN ELECTROPHORESISSEE COMMENTNoAshtabula County Medical CenterComment on above:Result Comment: Reviewed and approved by TIFFANIE TOWNSEND on 07/06/24 at 9:06 PM.Performed By: #### 37333-7 ####ARNULFO Roger ([id number])[facility] ([facility])[address] [place] [address]CNSAJAX ELECTROPHORESIS COMMENTSEE COMMENTNoAshtabula County Medical CenterComment on above:Result Comment: Hypoalbuminemia. Decrease in polyclonal gamma globulins.Performed By: #### 86148-4 ####ARNULFO Roger ([id number])[facility] ([facility])[address] [place] [address]Mkttxty 28-84-3764Pcsnr [Mass/Vol]6.9 mg/dLHigh2.3-6.7[facility] Medical CenterComment on above:Result Comment: Venipuncture immediately after or during the administration of Metamizole may lead to falsely low results. Testing should be performed immediatelyprior to Metamizole dosing.Performed By: #### 3084-1 ####WIL HOLBROOK ([id number])[facility] (ALEX)[address] [place], [place] [address]IfL6q (Bld) [Mass fraction]on 06-20-2024 Interpretation and review of laboratory resultsAbnoStoughton HospitalLaboratory - Hematology and Cell countson 87-17-2066MmR7t (Bld) [Mass fraction]5.7 %[facility] Differential panel (Bld)on 06-14-2024 Basophils (Bld) [#/Vol]0.01 x10*3/uLNormal0.00-0.10[facility] CenterComment on above:Performed By: #### 58976-2 ####WIL HOLBROOK ([id number])[facility] (ALEX)[address] [place], [place] [address]Lmzffdkkr/100 WBC (Bld)0.3 %Normal0.0-2.0UnCleveland Clinic Mercy HospitalComment on above:Performed By: #### 94906-3 ####WIL HOLBROOK ([id number])[facility] (ALEX)[address] [place] [address] Eosinophils (Bld) [#/Vol]0.13 x10*3/uLNormal0.00-0.70UnCleveland Clinic Mercy HospitalComment on above:Performed By: #### 35061-5 ####WIL HOLBROOK ([id number])[facility] (ALEX)[address] [place], [place] [address]Vwtczvzwtvr/100 WBC (Bld)3.3 %Normal0.0-6.0UnCleveland Clinic Mercy HospitalComment on above:Performed By: #### 65357-4 ####WIL HOLBROOK (223564)[facility] (ALEX)[address] [place], [place] [address]Uzmwyrcanjh distribution width (RBC) [Ratio]19.5 %High11.5-14.5 [facility] CenterComment on above:Performed By: #### 72740-2 ####WIL HOLBROOK (545795)[facility] (ALEX)[address] [place], [place] [address]Ohffsygfzc (Bld) [Volume fraction]28.4 %Low 36.0-46.0[facility] Medical CenterComment on above:Performed By: #### 19654-1 ####WIL Villalobos'VANDANA ([id number])[facility] (ALEX)[address] [place] [address]Dvlpklsypx (Bld) [Mass/Vol]9.0 g/dLLow 12.0-16.0[facility] Medical CenterComment on above:Performed By: #### 12790-2 ####WIL Villalobos'VANDANA ([id number])[facility] (ALEX)[address] [place], [place] [address]Yzvsgygd granulocytes (Bld) [#/Vol]0.01 x10*3/uLNormal0.00-0.70UnCleveland Clinic Mercy HospitalComment on above:Performed By: #### 62188-7 ####WIL Villalobos'VANDANA ([id number])[facility] (ALEX)[address] [place], [place] [address]Gyuznfnd granulocytes/100 WBC (Bld)0.3 %Normal0.0-0.9UnCleveland Clinic Mercy HospitalComment on above:Result Comment: Immature Granulocyte Count (IG) includes promyelocytes, myelocytes and metamyelocytes but does not include bands. Percent differential counts (%) should be interpreted in the context of the absolute cell counts (cells/UL).Performed By: #### 34431-9 ####WIL Villalobos'VANDANA ([id number])[facility] (ALEX)[address] [place], [place] [address]Pnmvavlxgko (Bld) [#/Vol]1.01 x10*3/uLLow1.20-4.80[facility] Comment on above:Performed By: #### 79065-8 ####WIL HOLBROOK ([id number])[facility] (ALEX)[address] [place] [address] Lymphocytes/100 WBC (Bld)25.4 %Kuouma01.0-44.0[facility] Medical CenterComment on above:Performed By: #### 95876-2 ####WIL Villalobos'VANDANA ([id number])[facility] (ALEX)[address] [place] [address] MCH (RBC) [Entitic mass]27.4 ksZjszba64.0-34.0UnCleveland Clinic Mercy HospitalComment on above:Performed By: #### 66102-9 ####WIL Villalobos'VANDANA ([id number])[facility] (ALEX)[address] [place] [address] MCHC (RBC) [Mass/Vol]31.7 g/dLLow32.0-36.0UnCleveland Clinic Mercy HospitalComment on above:Performed By: #### 77917-6 ####WIL Villalobos'VANDANA ([id number])[facility] (ALEX)[address] [place] [address] MCV (RBC) [Entitic vol]86 eGFsrait04-508QfmmozfdpaSouthview Medical CenterComment on above:Performed By: #### 62077-9 ####WIL Villalobos'VANDANA ([id number])[facility] (ALEX)[address] [place], [place] [address]Nscqvcbio (Bld) [#/Vol]0.63 x10*3/uLNormal0.10-1.00UnCleveland Clinic Mercy HospitalComment on above:Performed By: #### 31571-7 ####WIL Villalobos'VANDANA (330772)[facility] (ALEX)[address] [place] [address] Monocytes/100 WBC (Bld)15.8 %Normal2.0-10.0UnCleveland Clinic Mercy HospitalComment on above:Performed By: #### 44282-0 ####WIL Villalobos'VANDANA (553271)[facility] (ALEX)[address] [place] [address] Neutrophils (Bld) [#/Vol]2.19 x10*3/uLNormal1.20-7.70[facility] Medical CenterComment on above:Result Comment: Percent differential counts (%) should be interpreted in the context of the absolute cell counts (cells/uL).Performed By: #### 62618-0 ####WIL Villalobos'VANDANA (338721)[facility] (ALEX)[address] [place] [address]Npvaaoreeer/100 WBC (Bld)54.9 %Elmkxd59.0-80.0[facility] Medical CenterComment on above:Performed By: #### 90540-1 ####WIL Villalobos'VANDANA (409138)[facility] (ALEX)[address] [place] [address]Oixmkeyjp RBC/100 WBC (Bld) [Ratio]0.0 /100 WBCsNormal0.0-0.0[facility] Medical CenterComment on above:Performed By: #### 27499-0 ####WIL Villalobos'VANDANA (221282)[facility] (ALEX)[address] [place] [address]Aamqawhyc (Bld) [#/Vol]63 x10*3/dMQyg607-103GvtihtddblCleveland Clinic Mercy Hospital Comment on above:Performed By: #### 63862-1 ####WIL Villalobos'VANDANA (308540)[facility] (ALEX)[address] [place], [place] [address]NFH (Bld) [#/Vol]3.29 x10*6/uLLow4.00-5.20[facility] Comment on above:Performed By: #### 16471-8 ####WIL Villalobos'VANDANA ([id number])[facility] (ALEX)[address] [place], [place] [address]QDF (Bld) [#/Vol]4.0 x10*3/uLLow4.4-11.3[facility] Comment on above:Performed By: #### 91334-6 ####WIL HOLBROOK ([id number])[facility] (ALEX)[address] [place], [place] [address]Vwlqtukavuhen metabolic 2000 panelon 45-04-3377Mazsbtr BCP dye [Mass/Vol]3.3 g/dLLow3.4-5.0 [facility] CenterComment on above:Performed By: #### 00245-9 ####ARNULFO Roger (52141)[facility] ([facility])[address] [place], [place] [address]XNR [Catalytic activity/Vol]108 U/ZLxtryl39-022 [facility] CenterComment on above:Performed By: #### 33039-2 ####ARNULFO Roger (41068)[facility] ([facility])[address] [place], [place] [address]XED With P-5'-P [Catalytic activity/Vol]26 U/LNormal 7-45[facility] Medical CenterComment on above:Result Comment: Patients treated with Sulfasalazine may generate falsely decreased results for ALT.Performed By: #### 20183-3 ####ARNULFO Roger (65763)[facility] ([facility])[address] [place], [place] [address]Keltb gap [Moles/Vol]10 mmol/LNcgxdz02-82CxregjnvtpSouthview Medical Center Comment on above:Performed By: #### 56416-5 ####ARNULFO Roger (94649)[facility] ([facility])[address] [place], [place] [address]PUT With P-5'-P [Catalytic activity/Vol]34 U/LNormal9-39[facility] CenterComment on above:Performed By: #### 42901-3 ####ARNULFO Roger (98841)[facility] ([facility])[address] [facility], [place] [address]Qwuyxaiye [Mass/Vol] 0.9 mg/dLNormal0.0-1.2UnCleveland Clinic Mercy HospitalComment on above:Performed By: #### 80063-8 ####ARNULFO Roger ([id number])[facility] ([facility])[address] [place], [place] [address]Roaowsn [Mass/Vol]8.4 mg/dLLow 8.6-10.6UnCleveland Clinic Mercy HospitalComment on above:Performed By: #### 55777-0 ####ARNULFO Roger ([id number])[facility] ([facility])[address] [place], [place] [address]Bmaryxzy [Moles/Vol]101 mmol/RQftsdm70-118QzdqborcrmCleveland Clinic Mercy HospitalComment on above:Performed By: #### 57947-8 ####ARNULFO Roger (36057)[facility] ([facility])[address] [place], [place] [address]ZE9 [Moles/Vol]27 mmol/UIlaadp84-29UuyuljltdfCleveland Clinic Mercy HospitalComment on above:Performed By: #### 18041-4 ####ARNULFO GARCIA L ([id number])[facility] ([facility])[address] [place], [place] [address]Wmwgsbikke [Mass/Vol]0.90 mg/dLNormal0.50-1.05[facility] Comment on above:Performed By: #### 85657-9 ####ARNULFO Roger ([id number])[facility] ([facility])[address] [place], [place] [address]Rnwyxbopcl filtration rate/1.73 sq M.tuqzzwbpk86 mL/min/1.73m*2Normal>60UnCleveland Clinic Mercy HospitalComment on above:Result Comment: Calculations of estimated GFR are performed using the 2020 CKD-EPI Study Refit equation without the race variable for the IDMS-Traceable creatinine methods.https://jasn.asnjournals.org/content/early//ASN.5257600450 Performed By: #### 26751-6 ####ARNULFO Roger (64047)[facility] ([facility])[address] [place], [place] [address]Mghbkwm [Mass/Vol]136 mg/tGMado50-14VhowsmtiwiSouthview Medical CenterComment on above:Performed By: #### 32713-0 ####ARNULFO Roger ([id number])[facility] ([facility])[address] [place], [place] [address]Qsnaxhato [Moles/Vol]4.4 mmol/LNormal3.5-5.3Southview Medical CenterComment on above:Performed By: #### 72286-5 ####ARNULFO Roger ([id number])[facility] ([facility])[id number] [place] [address]Jykbgye [Mass/Vol]5.3 g/dLLow6.4-8.2UnCleveland Clinic Mercy HospitalComment on above:Performed By: #### 63693-8 ####ARNULFO Roger ([id number])[facility] ([facility])[address] [place], [place] [address]Wdwtak [Moles/Vol]134 mmol/LLow 136-145UnCleveland Clinic Mercy HospitalComment on above:Performed By: #### 58174-3 ####ARNULFO Roger ([id number])[facility] ([facility])[address] [place], [place] [address]Jpdm nitrogen [Mass/Vol]23 mg/dLNormal6-23Southview Medical CenterComment on above:Performed By: #### 70223-2 ####ARNULFO Roger ([id number])[facility] ([facility])[address] [place], [place] [address]TBMPVWCZPUGKKDO (IGG, IGA, IGM)on 24-06-7642AoJ [Mass/Vol]mg/zIFhk77-451 [facility] Medical CenterComment on above:Order Comment: MONOCLONAL PROTEINS MAY CAUSE FALSELY LOWRESULTS IN THIS ASSAY. SERUM PROTEINELECTROPHORESIS SHOULD BE DONE THEFIRST TEST TO EVALUATE MONOCLONAL GAMMOPATHY.Performed By: #### IGS ####ARNULFO Roger ([id number])[facility] ([facility])[address] [place], [place] [address]YlH [Mass/Vol]576 mg/kKUww794-8990 [facility] CenterComment on above:Order Comment: MONOCLONAL PROTEINS MAY CAUSE FALSELY LOWRESULTS IN THIS ASSAY. SERUM PROTEINELECTROPHORESIS SHOULD BE DONE THEFIRST TEST TO EVALUATE MONOCLONAL GAMMOPATHY.Performed By: #### IGS ####ARNULFO Roger ([id number])[facility] ([facility])[id number] [place] [address]WfS [Mass/Vol]mg/hKQlm26-543 [facility] CenterComment on above:Order Comment: MONOCLONAL PROTEINS MAY CAUSE FALSELY LOWRESULTS IN THIS ASSAY. SERUM PROTEINELECTROPHORESIS SHOULD BE DONE THEFIRST TEST TO EVALUATE MONOCLONAL GAMMOPATHY.Performed By: #### IGS ####ARNULFO Roger ([id number])[facility] ([facility])[id number] [place] [address]Drtqckwdlbtbtb light chains.free panel (S)on [id number] light chains.kappa [Mass/Vol]0.08 mg/dLLow 0.33-1.94Southview Medical CenterComment on above:Order Comment: Undetected antigen [...] be discussedwith the testing laboratory.Performed By: #### 68787-6 ####ARNULFO Roger ([id number])[facility] ([facility])[id number] [place] [address]Sazjzafriofswk light chains.kappa/Immunoglobulin light chains.lambda (S) [Mass ratio]Normal [facility] Medical CenterComment on above:Order Comment: Undetected antigen [...] measurement range.Calculation cannot be performed.Performed By: #### 99519-3 ####ARNULFO Roger ([id number])[facility] ([facility])[address] [place] [address] 45714Xkdfuecnxuuvzv light chains.lambda [Mass/Vol]<0.17Low 0.57-2.63Southview Medical CenterComment on above:Order Comment: Undetected antigen [...] be discussedwith the testing laboratory.Performed By: #### 86957-8 ####ARNULFO Roger ([id number])[facility] ([facility])[address] [place] [address] 12439Tdyxbfo dehydrogenaseon 44-69-1446PIF Lactate to pyruvate reaction [Catalytic activity/Vol]236 U/CUedpqv53-298YikmbkoiofSouthview Medical Center Comment on above:Performed By: #### 54579-8 ####ARNULFO Roger ([id number])[facility] ([facility])[address] [place] [address] 14982Zmdpjvfaj 06-14-2024 Protein [Mass/Vol]5.1 g/dLLow6.4-8.2[facility] Medical CenterComment on above:Performed By: #### 2885-2 ####ARNULFO Roger ([id number])[facility] ([facility])[address] [place], [place] [address] electrophoresis panelon 64-84-3563Ktltalp [Mass/Vol]3.1 g/dLLow3.4-5.0UnCleveland Clinic Mercy HospitalComment on above:Performed By: #### 85142-1 ####ARNULFO Roger ([id number])[facility] ([facility])[address] [place] [address] 64245GEEZT 1 GLOBULIN0.3 g/dLNormal0.2-0.6UnCleveland Clinic Mercy HospitalComment on above:Performed By: #### 89191-9 ####ARNULFO Roger ([id number])[facility] ([facility])[address] [place] [address] 01348UDJBE 2 GLOBULIN0.6 g/dLNormal0.4-1.1[facility] Comment on above:Performed By: #### 35409-8 ####ARNULFO Roger ([id number])[facility] ([facility])[address] [place] [address] 29103WLPA GLOBULIN0.6 g/dLNormal0.5-1.2[facility] Medical CenterComment on above: Performed By: #### 24198-4 ####ARNULFO Roger ([id number])[facility] ([facility])[address] [place] [address] 99201ABWYM GLOBULIN0.4 g/dLLow0.5-1.4UnCleveland Clinic Mercy HospitalComment on above:Performed By: #### 83755-1 ####ARNULFO Roger ([id number])[facility] ([facility])[address] [place] [address] 70373AODM REVIEW-SERUM PROTEIN ELECTROPHORESISSEE COMMENTNormalUniMcKitrick HospitalComment on above:Result Comment: Reviewed and approved by TIFFANIE TOWNSEND on 06/15/24 at 9:36 PM.Performed By: #### 52791-4 ####ARNULFO Roger ([id number])[facility] ([facility])[address] [place] [address] 18413LWMMSNT ELECTROPHORESIS COMMENTSEE COMMENTNormalUniMcKitrick HospitalComment on above:Result Comment: Hypoalbuminemia. Decrease in polyclonal gamma globulins.Performed By: #### 13282-0 ####ARNULFO Roger ([id number])[facility] ([facility])[address] [place], [place] [address]Xavgcyu 31-39-3976Rigrn [Mass/Vol]6.1 mg/dLNormal2.3-6.7[facility] Medical CenterComment on above:Result Comment: Venipuncture immediately after or during the administration of Metamizole may lead to falsely low results. Testing should be performed immediatelyprior to Metamizole dosing.Performed By: #### 3084-1 ####ARNULFO Roger ([id number])[facility] ([facility])[address] [place], [place] [address]WVG W Auto Differential panel (Bld)on 05-24-2024 Erythrocyte distribution width (RBC) [Ratio]19.7 %High11.5-14.5[facility] Medical CenterComment on above:Order Comment: The previously reported component [...] is no longer being reported.Performed By: #### 84065-0 ####WIL HOLBROOK ([id number])[facility] ([facility])[address] [facility] [place], [place] [address]Bduiuxyzbc (Bld) [Volume fraction]27.8 %Low36.0-46.0[facility] Medical CenterComment on above:Order Comment: The previously reported component [...] is no longer being reported.Performed By: #### 73709-8 ####WIL HOLBROOK ([id number])[facility] ([facility]EX)[address] [place], [place] [address]Rnktckaofu (Bld) [Mass/Vol]8.9 g/dLLow 12.0-16.0[facility] Medical CenterComment on above:Order Comment: The previously reported component [...] is no longer being reported.Performed By: #### 12455-2 ####WIL HOLBROOK ([id number])[facility] ([facility])[address] [place] [address] Immature granulocytes (Bld) [#/Vol]0.29 x10*3/uLNormal0.00-0.70[facility] Medical CenterComment on above:Order Comment: The previously reported component [...] is no longer being reported.Performed By: #### 30300-9 ####WIL HOLBROOK ([id number])[facility] ([facility])[address] [facility] [address]Vuhwmicb granulocytes/100 WBC (Bld)10.8 %High0.0-0.9[facility] Medical CenterComment on above:Order Comment: The previously reported component [...] absolute cell counts (cells/UL). Performed By: #### 11200-4 ####WIL HOLBROOK ([id number])[facility] ([facility])[address] [place] [address]NXY (RBC) [Entitic mass]27.7 pg Limhaj57.0-34.0[facility] Medical CenterComment on above: Order Comment: The previously reported [...] is no longer being reported.Performed By: #### 94270-2 ####WIL HOLBROOK ([id number])[facility] ([facility])[address] [place] [address] MCHC (RBC) [Mass/Vol]32.0 g/vGLjkysz80.0-36.0[facility] Medical CenterComment on above:Order Comment: The previously reported component [...] is no longer being reported.Performed By: #### 68504-2 ####WIL HOLBROOK ([id number])[facility] ([facility])[address] [place], [place] [address]WAN (RBC) [Entitic vol]87 fLNormal 80-100UnCleveland Clinic Mercy HospitalComment on above:Order Comment: The previously reported [...] is no longer being reported.Performed By: #### 96596-8 ####WIL HOLBROOK ([id number])[facility] ([facility])[address] [facility] [address] Nucleated RBC/100 WBC (Bld) [Ratio]0.0 /100 WBCsNormal0.0-0.0[facility] Medical CenterComment on above:Order Comment: The previously reported component [...] is no longer being reported.Performed By: #### 15902-7 ####WIL HOLBROOK ([id number])[facility] ([facility])[address] [facility] [address]Yokldmass (Bld) [#/Vol]57 x10*3/cQQil221-671RfqhjisnvaCleveland Clinic Mercy Hospital Comment on above:Order Comment: The previously [...] is no longer being reported.Performed By: #### 13497-1 ####WIL HOLBROOK ([id number])[facility] ([facility])[address] [place] [address] RBC (Bld) [#/Vol]3.21 x10*6/uLLow4.00-5.20[facility] Medical CenterComment on above:Order Comment: The previously reported component [...] is no longer being reported.Performed By: #### 14273-2 ####WIL HOLBROOK ([id number])[facility] ([facility])[address] [facility] [place] [address]DBT (Bld) [#/Vol]2.7 x10*3/uLLow 4.4-11.3UnCleveland Clinic Mercy HospitalComment on above:Order Comment: The previously reported [...] is no longer being reported.Performed By: #### 49523-4 ####WIL HOLBROOK ([id number])[facility] ([facility])[address] [place] [address] Comprehensive metabolic 2000 panelon 82-14-4369Pwbuggu BCP dye [Mass/Vol]3.6 g/dLNormal3.4-5.0[facility] Medical CenterComment on above: Performed By: #### 78828-7 ####WIL HOLBROOK ([id number])[facility] ([facility])[address] [place] [address]FLO [Catalytic activity/Vol]137 U/L Hwrc85-247NnzkmtifmoCleveland Clinic Mercy HospitalComment on above: Performed By: #### 63947-9 ####WIL HOLBROOK ([id number])[facility] ([facility])[address] [place], [place] [address]SJD With P-5'-P [Catalytic activity/Vol]16 U/LNormal7-45[facility] Comment on above:Result Comment: Patients treated with Sulfasalazine may generate falsely decreased results for ALT.Performed By: #### 26710-8 ####WIL HOLBROOK ([id number])[facility] ([facility])[address] [place], [place] [address]Hmkfu gap [Moles/Vol]13 mmol/MGdsozo95-85EfmxnnhtgwCleveland Clinic Mercy HospitalComment on above:Performed By: #### 92296-6 ####WIL Villalobos'VANDANA ([id number])[facility] ([facility])[address] [place] [address] AST With P-5'-P [Catalytic activity/Vol]27 U/LNormal9-39UnCleveland Clinic Mercy HospitalComment on above:Performed By: #### 19932-6 ####WIL Villalobos'VANDANA ([id number])[facility] ([facility])[address] [place] [place], [place] [address]Irdajpenw [Mass/Vol]1.2 mg/dLNormal0.0-1.2[facility] Medical CenterComment on above:Performed By: #### 93505-2 ####WIL Villalobos'VANDANA ([id number])[facility] ([facility])[address] [place] [address] Calcium [Mass/Vol]8.1 mg/dLLow8.6-10.3[facility] Medical CenterComment on above:Performed By: #### 53632-8 ####WIL Villalobos'VANDANA ([id number])[facility] ([facility])[address] [place] [place], [place] [address]Ilhtdvdg [Moles/Vol]101 mmol/YWysbcj15-634RuzxjmvcodCleveland Clinic Mercy Hospital Comment on above:Performed By: #### 40657-7 ####WIL Villalobos'VANDANA ([id number])[facility] ([facility])[address] [place], [place] [address]GA9 [Moles/Vol]25 mmol/KCjupvy61-96TjbuwzmpukSouthview Medical Center Comment on above:Performed By: #### 62545-8 ####WIL Villalobos'VANDANA ([id number])[facility] ([facility])[address] [place], [place] [address]Nxqzzmewvr [Mass/Vol]0.68 mg/dLNormal0.50-1.05UnCleveland Clinic Mercy Hospital Comment on above:Performed By: #### 66796-2 ####WIL Villalobos'VADNANA ([id number])[facility] ([facility])[address] [place] [place], [place] [address]TXY/1.73 sq M.predicted MDRD (S/P/Bld) [Vol rate/Area]mL/min/{1.73_m2}Normal>60UnCleveland Clinic Mercy HospitalComment on above:Result Comment: Calculations of estimated GFR are performed using the 2020 CKD-EPI Study Refit equation without the race variable for the IDMS-Traceable creatinine methods.https://jasn.asnjournals.org/content//ASN.5908321497 Performed By: #### 98173-2 ####WIL HOLBROOK ([id number])[facility] ([facility])[address] [place], [place] [address]Vawbdjb [Mass/Vol]103 mg/dLHigh 74-99UnCleveland Clinic Mercy HospitalComment on above:Performed By: #### 77335-0 ####WIL Villalobos'VANDANA ([id number])[facility] ([facility])[address] [place] [place], [place] [address]Qyedbgsdi [Moles/Vol]4.0 mmol/LNormal 3.5-5.3[facility] Medical CenterComment on above:Performed By: #### 56930-5 ####WIL Villalobos'VANDANA ([id number])[facility] ([facility])[address] [place], [place] [address]Nvacdrx [Mass/Vol]5.4 g/dLLow6.4-8.2 [facility] CenterComment on above:Performed By: #### 28596-4 ####WIL HOLBROOK ([id number])[facility] ([facility])[address] [place] [place], [place] [address]Qtzgbw [Moles/Vol]135 mmol/ZUqh169-604McfrtsyhkjCleveland Clinic Mercy HospitalComment on above:Performed By: #### 25231-9 ####WIL Villalobos'VANDANA ([id number])[facility] ([facility])[address] [place], [place] [address]Nimh nitrogen [Mass/Vol]12 mg/dLNormal6-23UnCleveland Clinic Mercy HospitalComment on above:Performed By: #### 21532-4 ####WIL HOLBROOK (905393)[facility] ([facility])[address] [place] [place], [place] [address]Losalk differential performed Ql (Bld)on 05-24-2024 Basophils (Bld) [#/Vol]0.00 x10*3/uLNormal0.00-0.10[facility] Medical CenterComment on above:Performed By: #### 14791-3 ####WIL HOLBROOK ([id number])[facility] ([facility])[address] [place] [place] [address]Heeubwzsq/100 WBC (Bld)0.0 %Normal0.0-2.0[facility] Medical CenterComment on above:Performed By: #### 52074-3 ####WIL HOLBROOK ([id number])[facility] ([facility])[address] [place] [address] Cells Counted Total (Bld) [#]100NormalUniversMedina HospitalComment on above:Performed By: #### 75106-3 ####WIL HOLBROOK ([id number])[facility] ([facility])[address] [place] [place], [place] [address]Agskilvaux LM Ql (Bld)[facility] Health DaytonComment on above:Performed By: #### 11228-3 ####WIL HOLBROOK ([id number])[facility] ([facility])[address] [place] [place], [place] [address]Zudev body LM Ql (Bld) [facility] Medical CenterComment on above: Performed By: #### 11259-8 ####WIL Villalobos'VANDANA ([id number])[facility] ([facility])[address] [place] [place] [address]Ovkvbumbwwh (Bld) [#/Vol]0.08 x10*3/uLNormal0.00-0.70[facility] CenterComment on above:Performed By: #### 17449-6 ####WIL HOLBROOK ([id number])[facility] ([facility])[address] [place] [place] [address]Xpwjkoeglpi/100 WBC (Bld)3.0 %Normal0.0-6.0[facility] Medical CenterComment on above: Performed By: #### 80547-2 ####WIL Villalobos'VANDANA (545154)[facility] ([facility])[address] [place] [place] [address]Viakrmsmryy (Bld) [#/Vol]0.70 x10*3/uLLow1.20-4.80[facility] CenterComment on above:Performed By: #### 91669-8 ####WIL Villalobos'VANDANA ([id number])[facility] ([facility])[address] [place] [place] [address]Jfxjzgwzzzf/100 WBC (Bld) 26.0 %Paafyb16.0-44.0UnCleveland Clinic Mercy HospitalComment on above:Performed By: #### 42082-2 ####WIL O'VANDANA ([id number])[facility] ([facility])[address] [place], [place] [address]Bqzfnvxkr (Bld) [#/Vol]0.38 x10*3/uLNormal0.10-1.00[facility] CenterComment on above:Performed By: #### 11006-9 ####WIL O'VANDANA ([id number])[facility] ([facility])[address] [place], [place] [address]Iuwmuqvca/100 WBC (Bld)14.0 %Normal2.0-10.0[facility] CenterComment on above: Performed By: #### 31930-6 ####WIL O'VANDANA ([id number])[facility] ([facility])[address] [place], [place] [address]Xyvfmsjadn LM Ql (Bld)[facility] HospitalComment on above:Performed By: #### 77567-8 ####WIL O'VANDANA ([id number])[facility] ([facility])[address] [place] [address]Acrjdivcbvxqs LM Ql (Bld)[facility] HospitalComment on above:Performed By: #### 01193-3 ####WIL O'VANDANA ([id number])[facility] ([facility])[address] [place], [place] [address]AJA morphology finding Nom (Bld)See [facility] HospitalComment on above:Performed By: #### 72276-7 ####WIL O'VANDANA ([id number])[facility] ([facility])[address] [place], [place] [address]Hcylkbplsxtn LM Ql (Bld)[facility] DaytonComment on above:Performed By: #### 47691-9 ####WIL Villalobos'VANDANA ([id number])[facility] ([facility])[address] [place] [facility] [address]Uuewynhmu neutrophils (Bld) [#/Vol]1.54 x10*3/uLNormal1.20-7.00 [facility] CenterComment on above:Performed By: #### 57042-3 ####WIL HOLBROOK ([id number])[facility] ([facility])[address] [place], [place] [address]Kwptdxcrb neutrophils/100 WBC (Bld)57.0 %Normal 40.0-80.0UnCleveland Clinic Mercy HospitalComment on above:Result Comment: Percent differential counts (%) should be interpreted in the context of the absolute cell counts (cells/uL).Performed By: #### 38847-6 ####WIL HOLBROOK ([id number])[facility] ([facility])[address] [facility] [place], [place] [address]Wpdmbafrpxstpu light chains.free panel (S)Ordered By: Ferny Fletcher on 67-23-6253Tqlamemgiqsupv light chains.kappa [Mass/Vol]mg/dLLow0.33 - 1.94 mg/dL [facility] HospitalImmunoglobulin light chains.kappa/Immunoglobulin light chains.lambda (S) [Mass ratio][facility] HospitalComment on above:One or more analytes used in this calculation is outside of the analytical measurement range. Calculation cannot be performed. Immunoglobulin light chains.lambda [Mass/Vol]mg/dLLow0.57 - 2.63 mg/dLUnTrinity Health System Twin City Medical CenterInterpretation and review of laboratory resultsAbnormal [facility] HospitalUndetected antigen excess is a rare event but [...] anomalies should be discussed with the testing laboratory.[facility] HospitalUnTrinity Health System Twin City Medical CenterCB W Auto Differential panel (Bld)on 58-01-9772Lotrjvbig (Bld) [#/Vol]0.01 x10*3/uLNormal0.00-0.10UnCleveland Clinic Mercy HospitalComment on above:Result Comment: Automated WBC differential has been confirmed by manual smear.Performed By: #### 11627-4 ####WIL HOLBROOK ([id number])[facility] ([facility])[address] [place] [address] Basophils/100 WBC (Bld)0.5 %Normal0.0-2.0UnCleveland Clinic Mercy HospitalComment on above:Performed By: #### 86980-5 ####WIL Villalobos'VANDANA ([id number])[facility] ([facility])[address] [place] [address]Aemxnlzxxxd (Bld) [#/Vol]0.09 x10*3/uLNormal0.00-0.70UnCleveland Clinic Mercy HospitalComment on above:Performed By: #### 52347-4 ####WIL Villalobos'VANDANA ([id number])[facility] ([facility])[address] [place] [address] Eosinophils/100 WBC (Bld)4.1 %Normal0.0-6.0UnCleveland Clinic Mercy HospitalComment on above:Performed By: #### 99689-4 ####WIL Villalobos'VANDANA ([id number])[facility] ([facility]EX)[address] [place] [address] Erythrocyte distribution width (RBC) [Ratio]22.5 %High11.5-14.5UnCleveland Clinic Mercy HospitalComment on above:Performed By: #### 96461-3 ####WIL Villalobos'VANDANA ([id number])[facility] ([facility])[address] [place] [place] [address]Rhnzcmnlej (Bld) [Volume fraction]27.6 %Low36.0-46.0 [facility] CenterComment on above:Performed By: #### 98323-4 ####WIL HOLBROOK ([id number])[facility] ([facility]EX)[address] [place], [place] [address]Bodmuhkrvz (Bld) [Mass/Vol]8.7 g/dLLow12.0-16.0 [facility] CenterComment on above:Performed By: #### 46778-8 ####WIL Villalobos'VANDANA ([id number])[facility] ([facility])[address] [place], [place] [address]Jjshmrgz granulocytes (Bld) [#/Vol]0.01 x10*3/uL Normal0.00-0.70[facility] CenterComment on above: Performed By: #### 95520-5 ####WIL HOLBROOK (193066)[facility] ([facility])[address] [place], [place] [address]Otalurzi granulocytes/100 WBC (Bld) 0.5 %Normal0.0-0.9UnCleveland Clinic Mercy HospitalComment on above: Result Comment: Immature Granulocyte Count (IG) includes promyelocytes, myelocytes and metamyelocytes but does not include bands. Percent differential counts (%) should be interpreted in the context of the absolute cell counts (cells/UL).Performed By: #### 93407-1 ####WIL HOLBROOK ([id number])[facility] ([facility])[address] [place], [place] [address]Xngjalwqzjj (Bld) [#/Vol]0.70 x10*3/uLLow1.20-4.80UnCleveland Clinic Mercy Hospital Comment on above:Performed By: #### 95207-4 ####WIL HOLBROOK ([id number])[facility] ([facility]EX)[address] [place] [address] Lymphocytes/100 WBC (Bld)31.7 %Vunzqp81.0-44.0[facility] CenterComment on above:Performed By: #### 49654-8 ####WIL HOLBROOK ([id number])[facility] ([facility]EX)[address] [place] [address] MCH (RBC) [Entitic mass]27.5 iuKjgasw57.0-34.0[facility] CenterComment on above:Performed By: #### 66423-8 ####WIL HOLBROOK ([id number])[facility] ([facility]EX)[address] [place] [address] MCHC (RBC) [Mass/Vol]31.5 g/dLLow32.0-36.0UnCleveland Clinic Mercy HospitalComment on above:Performed By: #### 15335-9 ####WIL HOLBROOK ([id number])[facility] ([facility]EX)[address] [place] [address] MCV (RBC) [Entitic vol]87 wZIsnfuh18-357ZcbfmisiwjCleveland Clinic Mercy HospitalComment on above:Performed By: #### 03980-3 ####WIL HOLBROOK (680397)[facility] ([facility])[address] [place], [place] [address]Rfnxjgnec (Bld) [#/Vol]0.38 x10*3/uLNormal0.10-1.00UnCleveland Clinic Mercy HospitalComment on above:Performed By: #### 48487-2 ####WIL HOLBROOK ([id number])[facility] ([facility])[address] [place] [address] Monocytes/100 WBC (Bld)17.2 %Normal2.0-10.0[facility] CenterComment on above:Performed By: #### 18284-1 ####WIL HOLBROOK (285725)[facility] ([facility])[address] [place] [address] Neutrophils (Bld) [#/Vol]1.02 x10*3/uLLow1.20-7.70UnCleveland Clinic Mercy HospitalComment on above:Result Comment: Percent differential counts (%) should be interpreted in the context of the absolute cell counts (cells/uL). Performed By: #### 31785-6 ####WIL HOLBROOK ([id number])[facility] ([facility])[address] [place] [place] [address]Rzhcyqbmvxq/100 WBC (Bld)46.0 % Ezyxxa34.0-80.0[facility] CenterComment on above: Performed By: #### 67584-9 ####WIL HOLBROOK (650493)[facility] ([facility]EX)[address] [place] [address]Jstmzgjzp RBC/100 WBC (Bld) [Ratio] 0.0 /100 WBCsNormal0.0-0.0[facility] CenterComment on above:Performed By: #### 80258-8 ####WIL HOLBROOK (376563)[facility] ([facility])[address] [place] [address]Rrisdlufq (Bld) [#/Vol]59 x10*3/pNLim508-110BlzegoawdiCleveland Clinic Mercy HospitalComment on above:Performed By: #### 31603-0 ####WIL HOLBROOK ([id number])[facility] ([facility]EX)[address] [place], [place] [address]YMF (Bld) [#/Vol]3.16 x10*6/uLLow4.00-5.20[facility] CenterComment on above:Performed By: #### 09367-4 ####WIL Villalobos'VANDANA (574084)[facility] ([facility]EX)[address] [place], [place] [address]PAU (Bld) [#/Vol]2.2 x10*3/uLLow4.4-11.3[facility] CenterComment on above:Performed By: #### 09117-7 ####WIL HOLBROOK ([id number])[facility] (ALEX)[address], [place] [address]Rfbnrybfmgrae metabolic 2000 panelon 34-75-8054Biyunsu BCP dye [Mass/Vol]3.6 g/dL3.4 - 5.0 g/dLUnTrinity Health System Twin City Medical CenterALP [Catalytic activity/Vol]158 U/LHigh33 - 136 U/L [facility] HospitalALT With P-5'-P [Catalytic activity/Vol]16 U/L7 - 45 U/[facility] on above:Patients treated with Sulfasalazine may generate falsely decreased results for ALT.Anion gap [Moles/Vol]11 mmol/L10 - 20 mmol/[facility] CenterAST With P-5'-P [Catalytic activity/Vol]26 U/L9 - 39 U/[facility] Bilirubin [Mass/Vol]1.0 mg/dL0.0 - 1.2 mg/dLUnTrinity Health System Twin City Medical Center Calcium [Mass/Vol]8.7 mg/dL8.6 - 10.3 mg/dLUnTrinity Health System Twin City Medical Center Chloride [Moles/Vol]105 mmol/L98 - 107 mmol/[facility] CO2 [Moles/Vol]28 mmol/L21 - 32 mmol/[facility] Creatinine [Mass/Vol]0.66 mg/dL0.50 - 1.05 mg/dLUnTrinity Health System [facility] Medical CentereGFR- PINFUniParkview Health on above: Calculations of estimated GFR are performed using the 2020 CKD-EPI Study Refit equation without therace variable for the IDMS-Traceable creatinine methods. https://jasn.asnjournals.org/content/early//ASN.7330499144 Glucose [Mass/Vol]86 mg/dL74 - 99 mg/dLUnTrinity Health System [facility] Interpretation and review of laboratory resultsAbnoalUGrand Lake Joint Township District Memorial HospitalPotassium [Moles/Vol]4.1 mmol/L3.5 - 5.3 mmol/[facility] CenterProtein [Mass/Vol]5.4 g/dLLow6.4 - 8.2 g/dLUnTrinity Health System [facility] Medical CenterSodium [Moles/Vol]140 mmol/L136 - 145 mmol/LUnTrinity Health System [facility] Medical CenterUrea nitrogen [Mass/Vol]15 mg/dL6 - 23 mg/dLChillicothe HospitalAlbumin BCP dye [Mass/Vol]3.6 g/dLNormal3.4-5.0[facility] CenterComment on above:Performed By: #### 10781-6 ####WIL HOLBROOK ([id number])[facility] (ALEX)[address] [place], [place] [address]HSY [Catalytic activity/Vol]158 U/YDgaf83-275AbmgfnfomqCleveland Clinic Mercy HospitalComment on above:Performed By: #### 00973-0 ####WIL HOLBROOK ([id number])[facility] (ALEX)[address] [place] [place], [place] [address]NRE With P-5'-P [Catalytic activity/Vol]16 U/LNormal7-45[facility] Medical CenterComment on above:Result Comment: Patients treated with Sulfasalazine may generate falsely decreased results for ALT. Performed By: #### 20786-1 ####WIL HOLBROOK ([id number])[facility] (ALEX)[address] [place], [place] [address]Ndbbf gap [Moles/Vol]11 mmol/L Plornw71-85IcafseitgoSouthview Medical CenterComment on above: Performed By: #### 13945-7 ####WIL HOLBROOK ([id number])[facility] (ALEX)[address] [place], [place] [address]JRK With P-5'-P [Catalytic activity/Vol]26 U/LNormal9-39[facility] Comment on above:Performed By: #### 77862-3 ####WIL HOLBROOK ([id number])[facility] (ALEX)[address] [place], [place] [address]Ygpqbople [Mass/Vol]1.0 mg/dLNormal0.0-1.2[facility] Comment on above:Performed By: #### 41247-9 ####WIL Villalobos'VANDANA ([id number])[facility] (ALEX)[address] [place], [place] [address]Spxrhsk [Mass/Vol]8.7 mg/dLNormal8.6-10.3[facility] Comment on above:Performed By: #### 85606-3 ####WIL Villalobos'VANDANA ([id number])[facility] (ALEX)[address], [place] [address]Bejypgsu [Moles/Vol]105 mmol/CDthytq32-274HtsgsftixySouthview Medical Center Comment on above:Performed By: #### 29090-8 ####WIL Villalobos'VANDANA ([id number])[facility] (ALEX)[address] [place], [place] [address]KC1 [Moles/Vol]28 mmol/USzhixk00-53MwuarqavfoSouthview Medical Center Comment on above:Performed By: #### 52405-8 ####WIL Villalobos'VANDANA ([id number])[facility] (ALEX)[address] [place], [place] [address]Bfisrigceb [Mass/Vol]0.66 mg/dLNormal0.50-1.05[facility] Comment on above:Performed By: #### 96181-3 ####WIL Villalobos'VANDANA ([id number])[facility] ([facility]EX)[address] [place], [place] [address]BZK/1.73 sq M.predicted MDRD (S/P/Bld) [Vol rate/Area]mL/min/{1.73_m2}Normal>60Southview Medical CenterComment on above:Result Comment: Calculations of estimated GFR are performed using the 2020 CKD-EPI Study Refit equation without the race variable for the IDMS-Traceable creatinine methods.https://jasn.asnjournals.org/content//ASN.5241477597 Performed By: #### 86296-6 ####WIL Villalobos'VANDANA ([id number])[facility] ([facility]EX)[address] [place], [place] [address]Inwdhcv [Mass/Vol]86 mg/dLNormal 74-99UnCleveland Clinic Mercy HospitalComment on above:Performed By: #### 55689-3 ####WIL Villalobos'VANDANA ([id number])[facility] ([facility]EX)[address] [place], [place] [address]Lqiccnxrr [Moles/Vol]4.1 mmol/LNormal 3.5-5.3Southview Medical CenterComment on above:Performed By: #### 99049-5 ####WIL Villalobos'VANDANA ([id number])[facility] ([facility]EX)[address] [place], [place] [address]Orfmimh [Mass/Vol]5.4 g/dLLow6.4-8.2 [facility] CenterComment on above:Performed By: #### 78388-2 ####WIL Villalobos'VANDANA ([id number])[facility] ([facility]EX)[address] [place], [place] [address]Hcwsea [Moles/Vol]140 mmol/FTfyaze948-497OdnxrcdvxlCleveland Clinic Mercy HospitalComment on above:Performed By: #### 70644-9 ####WIL Villalobos'VANDANA ([id number])[facility] (ALEX)[address] [place], [place] [address]Txri nitrogen [Mass/Vol]15 mg/dLNormal6-23South[facility] Medical CenterComment on above:Performed By: #### 08342-6 ####WIL Villalobos'VANDANA ([id number])[facility] ([facility]EX)[address] [place], [place] [address]PNTUDNHOGIYZYSE (IGG, IGA, IGM)on 88-35-3551CoN [Mass/Vol] mg/eMQwh17-088OcagajayxwCleveland Clinic Mercy HospitalComment on above: Order Comment: MONOCLONAL PROTEINS MAY CAUSE FALSELY LOWRESULTS IN THIS ASSAY. SERUM PROTEINELECTROPHORESIS SHOULD BE DONE THEFIRST TEST TO EVALUATE MONOCLONAL GAMMOPATHY.Performed By: #### IGS ####ARNULFO Roger ([id number])[facility] ([facility])[address] [place], [place] [address]TvM [Mass/Vol]398 mg/qDCzz920-4361LwrqacnvgzCleveland Clinic Mercy HospitalComment on above: Order Comment: MONOCLONAL PROTEINS MAY CAUSE FALSELY LOWRESULTS IN THIS ASSAY. SERUM PROTEINELECTROPHORESIS SHOULD BE DONE THEFIRST TEST TO EVALUATE MONOCLONAL GAMMOPATHY.Performed By: #### IGS ####ARNULFO Roger ([id number])[facility] ([facility])[address] [place] [address]ZbR [Mass/Vol]mg/dL Gfa84-112BtkpwawbvfSouthview Medical CenterComment on above:Order Comment: MONOCLONAL PROTEINS MAY CAUSE FALSELY LOWRESULTS IN THIS ASSAY. SERUM PROTEINELECTROPHORESIS SHOULD BE DONE THEFIRST TEST TO EVALUATE MONOCLONAL GAMMOPATHY.Performed By: #### IGS ####ARNULFO Roger ([id number])[facility] ([facility])[id number] [place] [address]Ekaclflpleoisc light chains.free panel (S)on 64-14-6787Kxekttaynqpxqg light chains.kappa [Mass/Vol]<0.08Low 0.33-1.94South[facility] Medical CenterComment on above:Order Comment: Undetected antigen [...] be discussedwith the testing laboratory.Performed By: #### 00891-1 ####ARNULFO Roger ([id number])[facility] ([facility])[address] [place] [address]Vqayfziazkjbcs light chains.kappa/Immunoglobulin light chains.lambda (S) [Mass ratio]Normal [facility] Medical CenterComment on above:Order Comment: Undetected antigen [...] measurement range.Calculation cannot be performed.Performed By: #### 71135-8 ####ARNULFO Roger ([id number])[facility] ([facility])[address] [place] [address]Caydvcgxmjeqgl light chains.lambda [Mass/Vol]<0.17Low 0.57-2.63UnCleveland Clinic Mercy HospitalComment on above:Order Comment: Undetected antigen excess [...] be discussedwith the testing laboratory.Performed By: #### 21859-5 ####ARNULFO Roger ([id number])[facility] ([facility])[address] [place] [address]Aqboqbaoujdhhxg (IgG, IgA, IgM)Ordered By: Soraida Elizalde on 86-94-4129KoU [Mass/Vol]mg/dLLow70 - 400 mg/dLUnTrinity Health System Twin City Medical CenterIgG [Mass/Vol]398 mg/kBRux612 - 1600 mg/dLUnTrinity Health System Twin City Medical CenterIgM [Mass/Vol]mg/dLLow40 - 230 mg/dL [facility] HospitalInterpretation and review of laboratory results AbnormalUnTrinity Health System Twin City Medical CenterMONOCLONAL PROTEINS MAY CAUSE FALSELY LOW RESULTS IN THIS ASSAY. SERUM PROTEIN ELECTROPHORESIS SHOULD BE DONE THE FIRST TEST TO EVALUATE MONOCLONAL GAMMOPATHY.[facility] HospitalLD Lactate to pyruvate reaction [Catalytic activity/Vol]on 70-18-1749Jbpojipkqkqvqg and review of laboratory resultsNoal [facility]icothe HospitalLactate dehydrogenaseon 07-58-4672CJP Lactate to pyruvate reaction [Catalytic activity/Vol]208 U/L84 - 246 U/LUnTrinity Health System Twin City Medical CenterLD Lactate to pyruvate reaction [Catalytic activity/Vol] 208 U/SNzdubu49-263DrkcbazudhSouthview Medical CenterComment on above:Performed By: #### 54892-5 ####WIL HOLBROOK ([id number])[facility] (ALEX)[address] [facility] [facility], [place] [address]Nq Panel Informationon 15-72-0323SebphisfvrChillicothe HospitalProteinon 14-32-0993Kicrbxk [Mass/Vol]5.2 g/dLLow6.4-8.2[facility] Medical CenterComment on above:Performed By: #### 2885-2 ####ARNULFO Roger ([id number])[facility] (C)[address] [facility], [place] [address]XIF shape Nom (Bld)on 05-10-2024 Dacrocytes LM Ql (Bld)[facility] Comment on above:Performed By: #### 67069-2 ####WIL HOLBROOK ([id number])[facility] (ALEX)[address] [facility] [address]Tydfr platelets LM Ql (Bld)[facility] Comment on above:Performed By: #### 71381-8 ####WIL HOLBROOK ([id number])[facility] (ALEX)[address] [facility] [place], [place] [address]Brtayusctzs Ql (Bld)[facility] HospitalComment on above: Performed By: #### 39187-1 ####WIL HOLBROOK ([id number])[facility] (ALEX)[address] [place], [place] [address]Bcjlgcpzbc LM Ql (Bld)[facility] HospitalComment on above:Performed By: #### 54450-2 ####WIL HOLBROOK ([id number])[facility] (ALEX)[address] [facility] [place], [place] [address]KEM morphology finding Nom (Bld)See [facility] HospitalComment on above:Performed By: #### 58634-9 ####WIL HOLBROOK ([id number])[facility] (ALEX)[address] [facility] [place], [place] [address]Hupopmqeazwp LM Ql (Bld)[facility] DaytonComment on above:Performed By: #### 60261-7 ####WIL HOLBROOK ([id number])[facility] (ALEX)[address] [facility], [place] [address]MQKKB PROTEIN ELECTROPHORESIS + IMMUNOFIXATIONon 42-19-8071Vypvnvo [Mass/Vol]3.2 g/dLLow3.4-5.0UnCleveland Clinic Mercy HospitalComment on above:Performed By: #### IFE3 ####ARNULFO Roger ([id number])[facility] ([facility])[address] [place], [place] [address]PDGEL 1 GLOBULIN0.4 g/dLNormal0.2-0.6UnCleveland Clinic Mercy HospitalComment on above: Performed By: #### IFE3 ####ARNULFO Roger ([id number])[facility] ([facility])[address] [place], [place] [address]ZAQDP 2 GLOBULIN0.6 g/dLNormal0.4-1.1UnCleveland Clinic Mercy HospitalComment on above:Performed By: #### IFE3 ####ARNULFO Roger ([id number])[facility] ([facility])[address] [facility] [place] [address]JVLC GLOBULIN0.6 g/dLNormal0.5-1.2UnCleveland Clinic Mercy HospitalComment on above:Performed By: #### IFE3 ####ARNULFO Roger ([id number])[facility] ([facility])[address] [place] [address]WZRNJ GLOBULIN0.3 g/dLLow0.5-1.4[facility] Medical CenterComment on above: Performed By: #### IFE3 ####ARNULFO Roger ([id number])[facility] ([facility])[address] [place] [address]KHNVKCWIFYEITK COMMENTDetectedNoAshtabula County Medical CenterComment on above:Performed By: #### IFE3 ####ARNULFO Roger ([id number])[facility] ([facility])[address] [place] [address]AZTQ REVIEW - SERUM IMMUNOFIXATIONSEE COMMENTSouthwest General Health CenterComment on above:Result Comment: Reviewed and approved by TIFFANIE TOWNSEND on 05/12/24 at 8:10 PM.Performed By: #### IFE3 ####ARNULFO Roger ([id number])[facility] ([facility])[address] [place] [address]OZWY REVIEW-SERUM PROTEIN ELECTROPHORESISSEE COMMENTSouthwest General Health CenterComment on above:Result Comment: Reviewed and approved by TIFFANIE TOWNSEND on 05/12/24 at 8:10 PM.Performed By: #### IFE3 ####ARNULFO Roger ([id number])[facility] ([facility])[address] [place] [address]LJMJRSF ELECTROPHORESIS COMMENTSEE COMMENTSouthwest General Health CenterComment on above:Result Comment: Hypoalbuminemia. Decrease in polyclonal gamma globulins.Performed By: #### IFE3 ####ARNULFO Roger ([id number])[facility] ([facility])[address] [place] [address]Ymuafjj aminotransferase [Enzymatic activity/volume] in Serum or PlasmaOrdered By: Hortensia Clinton on 34-43-9147HSD [Catalytic activity/Vol]12 U/L7-52[facility] For RehabilitationAlbumin [Mass/volume] in Serum or Plasma by Bromocresol green (BCG) dye binding methoOrdered By: Hortensia Clinton on 34-44-0890Evgemux BCG dye [Mass/Vol] 3.9 g/dL3.5-5.7FOhioHealth Arthur G.H. Bing, MD, Cancer CenterAlkaline phosphatase [Enzymatic activity/volume] in Serum or PlasmaOrdered By: Hortensia Clinton on 55-43-3374SVN [Catalytic activity/Vol]151 U/FFquz36-230XphpkuwmbChildren'S Hospital For Rehabilitation Anisocytosis LM Ql (Bld)Ordered By: Hortensia Clinton on 78-95-6607Pyfjkenviezw Ql (Bld)ModerateChildren'S Hospital For RehabilitationAspartate aminotransferase [Enzymatic activity/volume] in Serum or PlasmaOrdered By: Hortensia Clinton on 24-06-1604FHX [Catalytic activity/Vol]30 U/G78-63JpvpjoncnChildren'S Hospital For RehabilitationBasophils Auto (Bld) [#/Vol]Ordered By: Hortensia Clinton on 04-19-2024 Basophils (Bld) [#/Vol]0.0 10*3/uL0.0-0.2FOhioHealth Arthur G.H. Bing, MD, Cancer Center Basophils/100 WBC Auto (Bld)Ordered By: Hortensia Clinton on 72-93-0520Uxtycfaqy/100 WBC (Bld)0.2 %.[facility] Hospital For RehabilitationBilirubin.direct [Mass/volume] in Serum or PlasmaOrdered By: Hortensia Clinton on 73-19-9750Djcgahtfs.direct [Mass/Vol]0.70 mg/dLHigh0.03-0.18FOhioHealth Arthur G.H. Bing, MD, Cancer Center Bilirubin.total [Mass/volume] in Serum or PlasmaOrdered By: Hortensia Clinton on 14-76-4847Neykqemwi [Mass/Vol]2.1 mg/dLHigh0.3-1.0[facility] For RehabilitationComment on above:Samples from patients who have taken Naproxen have shown spurious elevation in Total Bilirubin levels. A metabolite of Naproxen, O- desmethylnaproxen, has been shown to interfere with the Victor M method for measuring Total Bilirubin.Calcium [Mass/volume] in Serum or PlasmaOrdered By: Hortensia Clinton on 22-21-1217Yqryfke [Mass/Vol]8.8 mg/dL8.6-10.3FOhioHealth Arthur G.H. Bing, MD, Cancer CenterCarbon dioxide, total [Moles/volume] in Serum or Plasma Ordered By: Hortensia Clinton on 13-95-9554JW1 [Moles/Vol]28.7 mmol/L21.0-31.0 [facility] For RehabilitationChloride [Moles/volume] in Serum or Plasma Ordered By: Hortensia Clinton on 54-09-3225Leernbft [Moles/Vol]105 mmol/L98-107 [facility] RehabilitationCreatinine [Mass/volume] in Serum or Plasma Ordered By: Hortensia Clinton on 88-84-6662Hyssdghinw [Mass/Vol]0.51 mg/dLLow 0.60-1.20[facility] For RehabilitationEosinophils Auto (Bld) [#/Vol]Ordered By: Hortensia Clinton on 21-44-0861Xaddrqlhfmy (Bld) [#/Vol]0.1 10*3/uL0.0-0.45 [facility] For RehabilitationEosinophils/100 WBC Auto (Bld)Ordered By: Hortensia Clinton on 08-86-5746Zvpbcnbbemb/100 WBC (Bld)4.1 %.[facility] For RehabilitationErythrocyte distribution width Auto (RBC) [Ratio]Ordered By: Hortensia Clinton on 30-59-7461Qndtyzxnled distribution width (RBC) [Ratio]22.1 %High11.9-15.3 [facility] For RehabilitationGlobulin Calc (S) [Mass/Vol]Ordered By: Hortensia Clinton on 02-15-4762Negoxkdr (S) [Mass/Vol]1.5 g/dLChildren'S Hospital For RehabilitationGlucose [Mass/volume] in Serum or PlasmaOrdered By: Hotrensia Clinton on 06-98-1874Qdnplgp [Mass/Vol]118 mg/wYCurp96-354GuepbjyzlChildren'S Hospital For Rehabilitation Comment on above:ADA recommended reference rangeRandom Glucose Reference Range is dependent on time and content of last meal. Glucose of more than 200 mg/dL in a nonstressed, ambulatory subject supports the diagnosisof Diabetes Mellitus. Hematocrit Auto (Bld) [Volume fraction]Ordered By: Hortensia Clinton on 04-19-2024 Hematocrit (Bld) [Volume fraction]26.9 %Low34.0-46.4FOhioHealth Arthur G.H. Bing, MD, Cancer CenterHemoglobin [Mass/volume] in BloodOrdered By: Hortensia Clinton on 04-19-2024 Hemoglobin (Bld) [Mass/Vol]8.8 g/dLLow11.8-15.4FOhioHealth Arthur G.H. Bing, MD, Cancer Center Hypochromia LM Ql (Bld)Ordered By: Hortensia Clinton on 89-53-0670Cvjenipgsfd Ql (Bld)ModerateChildren'S Hospital For RehabilitationLeukocytes [#/volume] corrected for nucleated erythrocytes in Blood by Automated counOrdered By: Hortensia Clinton on 23-18-0033PID corrected for nucl RBC Auto (Bld) [#/Vol]3.4 10*3/uLLow3.8-11.6 [facility] For RehabilitationLymphocytes Auto (Bld) [#/Vol]Ordered By: Hortensia Clinton on 31-89-9817Nkjnxhgfvpc (Bld) [#/Vol]0.6 10*3/uLLow1.00-4.8[facility] Hospital For RehabilitationLymphocytes/100 WBC Auto (Bld)Ordered By: Hortensia Clinton on 60-12-1361Xygonhzkjmb/100 WBC (Bld)18.3 %.[facility] MCH Auto (RBC) [Entitic mass]Ordered By: oHrtensia Clinton on 28-98-2246LVM (RBC) [Entitic mass]26.1 pg24.7-34.3FOhioHealth Arthur G.H. Bing, MD, Cancer CenterMCHC Auto (RBC) [Mass/Vol]Ordered By: Hortensia Clinton on 90-43-2854BUHJ (RBC) [Mass/Vol]32.8 g/dL 32.0-35.0[facility] For RehabilitationMCV Auto (RBC) [Entitic vol]Ordered By: Hortensia Clinton on 89-79-0900AOH (RBC) [Entitic vol]79.6 iGJpn21-363LqteuymotChildren'S Hospital For RehabilitationMagnesium [Mass/volume] in Serum or PlasmaOrdered By: Hortensia Clinton on 23-93-5941Ziezovkww [Mass/Vol]1.8 mg/dLLow1.9-2.7FOhioHealth Arthur G.H. Bing, MD, Cancer CenterMicrocytes LM Ql (Bld)Ordered By: Hortensia Clinton on 58-49-3829Jwkyqrdqcy Ql (Bld)SlightChildren'S Hospital For RehabilitationMonocytes Auto (Bld) [#/Vol]Ordered By: Hortensia Clinton on 23-58-4544Uzywlzocm (Bld) [#/Vol] 0.5 10*3/uL0.0-0.8[facility] For RehabilitationMonocytes/100 WBC Auto (Bld) Ordered By: Hortensia Clinton on 10-40-9638Fjvmteotl/100 WBC (Bld)15.9 %.[facility] Hospital For RehabilitationNeutrophils Auto (Bld) [#/Vol]Ordered By: Hortensia Clinton on 51-09-9867Rehraleoqtd (Bld) [#/Vol]2.1 10*3/uL1.8-7.7FOhioHealth Arthur G.H. Bing, MD, Cancer CenterNeutrophils/100 WBC Auto (Bld)Ordered By: Hortensia Clinton on 74-99-3867Qyatlxnefdm/100 WBC (Bld)61.5 %.[facility] For RehabilitationNo Panel InformationOrdered By: Hortensia Clinton on 60-73-6387Gmahnleab GFR (CKD-EPI)> 60.0 mL/MinChildren'S Hospital For RehabilitationPharmacy Creatinine Clearance (Chem 70.22[facility]> 60.0 mL/MinChildren'S Hospital For Rehabilitation70.22[facility] RehabilitationNucleated erythrocytes [Presence] in Blood by Automated countOrdered By: Hortensia Clinton on 40-15-8123Pcqafwuwz RBC Auto Ql (Bld)0.1 /100{WBC}0-0.5FOhioHealth Arthur G.H. Bing, MD, Cancer CenterOvalocyte detectionOrdered By: Hortensia Clinton on 83-68-2203Opcamvfwwd LM Ql (Bld)Slight [facility] Hospital For RehabilitationPhosphate [Mass/volume] in Serum or Plasma Ordered By: Hortensia Clinton on 17-44-5695Qrzziguit [Mass/Vol]2.6 mg/dL2.5-4.5 [facility] For RehabilitationPlatelet adequacy [Presence] in Blood by Light microscopyOrdered By: Hortensia Clinton on 78-82-8443Xdznzyhnq LM Ql (Bld)Decreased NormalChildren'S Hospital For RehabilitationPlatelet mean volume Auto (Bld) [Entitic vol]Ordered By: Hortensia Clinton on 38-73-0309Qulndnrp mean volume (Bld) [Entitic vol]8.9 fL6.3-10.7FOhioHealth Arthur G.H. Bing, MD, Cancer CenterPlatelet morphology finding [Identifier] in BloodOrdered By: Hortensia Clinton on 14-87-6410Eyijynwk morphology finding Nom (Bld)NormalNormalChildren'S Hospital For RehabilitationPlatelets Auto (Bld) [#/Vol]Ordered By: Hortensia Clinton on 20-50-8381Snzgvfymr (Bld) [#/Vol]42 10*3/uRLtk496-735XkntwindoChildren'S Hospital For RehabilitationPoikilocytosis [Presence] in Blood by Light microscopyOrdered By: Hortensia Clinton on 99-54-6052Woqjpkcvlaleko LM Ql (Bld)[facility] Children's HospitalPolychromasia [Presence] in Blood by Light microscopyOrdered By: Hortensia Clinton on 86-80-0129Wskjwwinzstjy LM Ql (Bld)[facility] HospitalPotassium [Moles/volume] in Serum or PlasmaOrdered By: Hortensia Clinton on 12-53-8034Kkycokeii [Moles/Vol]3.3 mmol/LLow3.5-5.1FOhioHealth Arthur G.H. Bing, MD, Cancer CenterProtein [Mass/volume] in Serum or PlasmaOrdered By: Hortensia Clinton on 39-29-1938Czzjyso [Mass/Vol]5.4 g/dLLow 6.4-8.9[facility] For RehabilitationComment on above:Delta: 7.0 on 04/18/24-629RBC Auto (Bld) [#/Vol]Ordered By: Hortensia Clinton on 90-58-2397NYT (Bld) [#/Vol]3.38 10*6/uLLow3.60-5.00[facility] For RehabilitationRBC morphologyOrdered By: Hortensia Clinton on 09-28-3147QGY morphology finding Nom (Bld)N/AFKettering Health Daytonerum or plasma albumin/globulin mass ratioOrdered By: Hortensia Clinton on 14-02-0758Hdunwbp/Globulin [Mass ratio]2.6 {ratio}Summa Healtherum or plasma anion gap determination Ordered By: Hortensia Clinton on 92-53-9963Bmrmy gap [Moles/Vol]9.6 mmol/L6.0-15.0 [facility]ma Healtherum or plasma non-glucuronidated bilirubin measurement (mass/volume)Ordered By: Hortensia Clinton on 04-19-2024 Bilirubin.indirect [Mass/Vol]1.4 mg/dLSumma Healthodium [Moles/volume] in Serum or PlasmaOrdered By: Hortensia Clinton on 85-91-5703Ibfltf [Moles/Vol]140 mmol/U405-940RmmwcxmcqChildren'S Hospital For RehabilitationUrea nitrogen [Mass/volume] in Serum or PlasmaOrdered By: Hortensia Clinton on 06-16-6637Blcv nitrogen [Mass/Vol]18 mg/dL7-25Children[facility] Hospital For RehabilitationWBC Auto (Bld) [#/Vol]Ordered By: Hortensia Clinton on 22-64-9186JLA (Bld) [#/Vol]3.4 10*3/uLLow 3.8-11.6FOhioHealth Arthur G.H. Bing, MD, Cancer CenterEosinophils/100 WBC Manual cnt (Bld) Ordered By: Hortensia Clinton on 15-00-5788Jlkzlvtovif/100 WBC (Bld)2 %1-3FOhioHealth Arthur G.H. Bing, MD, Cancer CenterHepatitis B virus surface Ag [Presence] in Serum or Plasma by ImmunoassayOrdered By: Hortensia Clinton on 37-61-0283FNV surface Ag IA Ql NegativeNegativeChildren'S Hospital For RehabilitationHepatitis C virus IgG Ab [Presence] in Serum or Plasma by ImmunoassayOrdered By: Hortensia Clinton on 80-96-0015FSN IgG IA QlNon-ReactiveNon ReactiveChildren'S Hospital For Rehabilitation Hepatitis C virus RNA [Units/volume] (viral load) in Serum or Plasma by JOHANN with probOrdered By: Hortensia Clinton on 08-31-9387VFP RNA JOHANN+probe QnN/[facility] CenterHepatitis C virus RNA [log units/volume] (viral load) in Serum or Plasma by JOHANN withOrdered By: Hortensia Clinton on 22-27-4440ZBB RNA JOHANN+probe [Log units/Vol]N/[facility] Medical CenterLymphocytes/100 WBC Manual cnt (Bld)Ordered By: Hortensia Clinton on 02-47-3355Nurpstvzmjh/100 WBC (Bld) 13 %Ibi78-75AliurlwzrChildren'S Hospital For RehabilitationMonocytes/100 WBC Manual cnt (Bld) Ordered By: Hortensia Clinton on 76-77-9504Xfgglynir/100 WBC (Bld)20 %High2-11 [facility] RehabilitationNo Panel InformationOrdered By: Hortensia Clinton on 85-61-6076Ekzkesaku A IgM AntibodyNegativeNegAultman Orrville Hospital B Core IgM AntibodyNegativeNegAultman Orrville Hospital C InterpretationSee comment.[facility] Comment on above:Not infected with HCV unless early or acute infection issuspected (which may be delayed in an immunocompromisedindividual), or other evidence exists to indicate HCVinfection.Performed at: [facility] [id number] Director: Lang Knight PhD, Phone: [phone]mWayne HealthCare Main Campusee comment.[facility]ma Healthegmented neutrophils/100 WBC Manual cnt (Bld)Ordered By: Hortensia Clinton on 87-02-6670Jgutjltir neutrophils/100 WBC (Bld)65 %50-70[facility] For RehabilitationTeardrop cell detectionOrdered By: Hortensia Clinton on 13-27-5483Grzgwvturs LM Ql (Bld)[facility] HospitalRed blood cell stomatocyte detectionOrdered By: Modesto Aquino on 86-80-7967Uhdzsxqtpfpj LM Ql (Bld)[facility]'s HospitalActivated partial thromboplastin time (aPTT) in platelet poor plasma by coagulation aOrdered By: Vicente Linton on 71-16-5512eAHS Coag (PPP) [Time]30.6 s25.1-36.5FOhioHealth Arthur G.H. Bing, MD, Cancer CenterComment on above:A hematocrit value greater than 55% may lead to inaccurate results in coagulation testing. Patientshaving hematocrit values >55% require a special collection tube for coagulation studies. Please c ontact the laboratory at [phone] for redraw instructions.Dohle bodies detectionOrdered By: Modesto Aquino on 89-45-2528Fnxif body LM Ql (Bld)Moderate [facility] For RehabilitationINR in Platelet poor plasma by Coagulation assayOrdered By: Vicente Linton on 92-87-8989TKG Coag (PPP) [Relative time]1.4 {INR}[facility] For RehabilitationComment on above:INR Therapeutic Range A) Pre- and [...] by Light microscopyOrdered By: Modesto Aquino on 57-74-7156Cuwjyhhqc Large LM Ql (Bld)[facility] Prothrombin time (PT)Ordered By: Vicente Linton on 91-09-1209HU Coag (PPP) [Time] 16.5 sHigh9.0-12.9[facility] For RehabilitationComment on above:A hematocrit value greater than 55% may lead to inaccurate results in coagulation testing. Patientshaving hematocrit values >55% require a special collection tube for coagulation studies. Please contact the laboratory at [phone] for redraw instructions.Acanthocytes [Presence] in Blood by Light microscopyOrdered By: Modesto Aquino on 69-89-6517Whmgjnutjjbh LM Ql (Bld)[facility] HospitalBurr cells [Presence] in Blood by Light microscopyOrdered By: Modesto Aquino on 81-40-4013Fihr cells LM Ql (Bld)[facility]'s HospitalToxic leukocyte vacuolation detectionOrdered By: Modesto Aquino on 40-68-6386Nfgfeiela toxic vacuoles LM Ql (Bld)[facility] HospitalBand form neutrophils/100 WBC Manual cnt (Bld)Ordered By: Juan J Brown on 23-49-6226Bgrd form neutrophils/100 WBC (Bld)16 %High0-5FOhioHealth Arthur G.H. Bing, MD, Cancer CenterGiant platelets/100 leukocytes [Ratio] in Blood by Manual countOrdered By: Juan J Brown on 18-96-2000Oeawp platelets/100 WBC Manual cnt (Bld) [Ratio]1 /100{WBC}[facility] For RehabilitationMacrocytes LM Ql (Bld) Ordered By: Juan J Brown on 41-15-9742Crtgkxfqwy Ql (Bld)[facility] HospitalAlbumin [Mass/volume] in Body fluidOrdered By: Vicente Linton on 30-20-7887Ebtjvxy (Body fld) [Mass/Vol]< 1.5 g/dLChildren'S Hospital For RehabilitationComment on above:No reference range establishedBacterial blood culture Ordered By: Lakeisha Miller on 28-12-4344Myziysej identified Cx Nom (Bld)NO GROWTH 5 DAYSChildren'S Hospital For RehabilitationBacteria identified Cx Nom (Bld)NO GROWTH 5 DAYSChildren'S Hospital For RehabilitationBody fluid differential cell count Ordered By: Vicente Linton on 56-90-7751Kaccsenyrpqo panel (Body fld)16 %[facility] For RehabilitationComment on above:The reference interval and other method performance specifications have not been established for this body fluid. The test result must be integrated into the clinical context for interpretation. COVID-19 Detected/Not DetectedOrdered By: Juan J Brown on 97-59-1314EINC-CoV-2 (COVID-19) RNA JOHANN+non-probe Ql (Nph)Not detectedNot DetectKettering Health Main CampusComment on above:This is a duplicate RP2.1 COVID (PCR) result to be used for statistical tracking purpose only.Cells Counted Total [#] in Body fluidOrdered By: Vicente Linton on 55-44-1629Btucw Counted Total (Body fld) [#] 5841 mm^3FOhioHealth Arthur G.H. Bing, MD, Cancer CenterComment on above:The reference interval and other method performance specifications have not been established for this body fluid. The test result must be integrated into the clinical context for interpretation.Color of Spun Body fluidOrdered By: Vicente Linton on 21-72-5340Cjzay (Spun body fld)[facility] Butler HospitalComment on above:The reference interval and other method performance specifications have not been established for this body fluid. The test result must be integrated into the clinical context for interpretation.Determination of appearance of body fluidOrdered By: Vicente Linton on 65-36-7278Ljgbnwtblw (Body fld)CloudyChildren'S Hospital For RehabilitationComment on above:The reference interval and other method performance specifications have not been established for this body fluid. The test result must be integrated into the clinical context for interpretation. Erythrocytes [#/volume] in Body fluid by Automated countOrdered By: Vicente Linton on 82-63-6362IPR Auto (Body fld) [#/Vol]7347 mm^3FOhioHealth Arthur G.H. Bing, MD, Cancer CenterComment on above:The reference interval and other method performance specifications have not been established for this body fluid. The test result must be integrated into the clinical context for interpretation.Evaluation of color of body fluidOrdered By: Vicente Linton on 35-04-5882Qbjlp (Body fld)[facility] CenterComment on above:The reference interval and other method performance specifications have not been established for this body fluid. The test result must be integrated into the clinical context for interpretation.Glucose Glucometer (BldC) [Mass/Vol]Ordered By: Vicente Linton on 95-75-2270Adyrvdq [Mass/Vol]100 mg/dLChildren'S Hospital For RehabilitationComment on above:Random Glucose Reference Range is dependent on time and content of last meal. Glucose of more than 200 mg/dL in a nonstressed, ambulatory subject supports the diagnosis of Diabetes Mellitus.Gram stain for investigation of transfusion reactionOrdered By: Juan J Brown on 70-93-9275Ovzweerbinx observation Gram stain Nom (Unsp spec)2 DaysChildren'S Hospital For RehabilitationGram stain for investigation of transfusion reactionOrdered By: Vicente Linton on 04-11-2024 Microscopic observation Gram stain Nom (Unsp spec)Enterobacter cloacae complex AbnormalChildren'S Hospital For RehabilitationLactate [Moles/volume] in Serum or PlasmaOrdered By: Juan J Brown on 53-36-7397Itcqhei [Moles/Vol]2.7 mmol/LHigh 0.5-2.2FOhioHealth Arthur G.H. Bing, MD, Cancer CenterComment on above:Critical Result : Called to and read back by: ALEJANDRO HAYS at: 04/11/2024 14:08 by:MLGMansayra body fluid eosinophils/100 leukocytesOrdered By: Vicente Linton on 04-11-2024 Eosinophils/100 WBC Manual cnt (Body fld)1 /100{WBC}0-3FOhioHealth Arthur G.H. Bing, MD, Cancer CenterManual body fluid lymphocytes/100 leukocytesOrdered By: Vicente Linton on 24-25-8229Dyanthiubat/100 WBC Manual cnt (Body fld)2 %[facility] For RehabilitationComment on above:The reference interval and other method performance specifications have not been established for this body fluid. The test result must be integrated into the clinical context for interpretation. Microscopic observation Gram stain Nom (Unsp spec)Ordered By: Vicente Linton on 77-21-9988Bmwt stain for investigation of transfusion reactionEnterobacter cloacae complexAbnoLutheran HospitalNeutrophils/100 WBC Manual cnt (Body fld)Ordered By: Vicente Linton on 96-66-7982Oqracdjniie/100 WBC (Body fld)81 %[facility] For RehabilitationComment on above:The reference interval and other method performance specifications have not been established for this body fluid. The test result must be integrated into the clinical context for interpretation.Protein [Mass/volume] in Body fluidOrdered By: Vicente Linton on 57-51-1360Porgeev (Body fld) [Mass/Vol]g/dLChildren'S Hospital For RehabilitationRespiratory pathogens DNA and RNA panel - Nasopharynx by JOHANN with non- probe detectionOrdered By: Juan J Brown on 89-64-5467Xrhswdewuuv pathogens DNA and RNA panel JOHANN+non-probe (Nph)Summa Healthchistocytes [Presence] in Blood by Light microscopyOrdered By: Juan J Brown on 04-11-2024 Schistocytes LM Ql (Bld)SlightChildren'S Hospital For RehabilitationActivated partial thromboplastin time (aPTT) in platelet poor plasma by coagulation aOrdered By: Ez Delgado on 73-75-8977gRGT Coag (PPP) [Time]110.2 s25.1-36.5FOhioHealth Arthur G.H. Bing, MD, Cancer CenterAlanine aminotransferase [Enzymatic activity/volume] in Serum or PlasmaOrdered By: Ez Delgado on 57-57-7951ILZ [Catalytic activity/Vol]19 U/L7-52 [facility] For RehabilitationAlbumin [Mass/volume] in Serum or Plasma by Bromocresol green (BCG) dye binding methoOrdered By: Ez Delgado on 04-10-2024 Albumin BCG dye [Mass/Vol]3.1 g/dL3.5-5.7FOhioHealth Arthur G.H. Bing, MD, Cancer Center Alkaline phosphatase [Enzymatic activity/volume] in Serum or PlasmaOrdered By: Ez Delgado on 70-41-0955FBF [Catalytic activity/Vol]126 U/G69-964DicibghbuChildren'S Hospital For RehabilitationAmmonia [Moles/volume] in PlasmaOrdered By: Ez Delgado on 72-84-3612Dkcndvl (P) [Moles/Vol]38 umol/DFsdz31-01CjdeqaajkChildren'S Hospital For RehabilitationAmylase [Enzymatic activity/volume] in Serum or PlasmaOrdered By: Ez Delgado on 15-15-0883Mgiskny [Catalytic activity/Vol]48 U/D44-062LvulikhkxChildren'S Hospital For RehabilitationAnisocytosis LM Ql (Bld)Ordered By: Ez Delgado on 43-96-4065Iardbonrpheo Ql (Bld)ModerateChildren'S Hospital For Rehabilitation Aspartate aminotransferase [Enzymatic activity/volume] in Serum or PlasmaOrdered By: Ez Delgado on 60-71-9249DKO [Catalytic activity/Vol]40 U/S33-36BfxuynpsbChildren'S Hospital For RehabilitationBacteria [Presence] in Urine by AutomatedOrdered By: Ez Delgado on 88-88-7682Fhvgilrz Auto Ql (U)Rare [HPF]None SeenChildren'S Hospital For RehabilitationBand form neutrophils/100 WBC Manual cnt (Bld)Ordered By: Ez Delgado on 09-33-0528Cfum form neutrophils/100 WBC (Bld)9 %0-5FOhioHealth Arthur G.H. Bing, MD, Cancer CenterBasophils Auto (Bld) [#/Vol]Ordered By: Ez Delgado on 04-10-2024 Basophils (Bld) [#/Vol]N/AFOhioHealth Arthur G.H. Bing, MD, Cancer CenterBasophils/100 WBC Auto (Bld)Ordered By: Ez Delgado on 15-04-1152Pcmmmkgcc/100 WBC (Bld)N/A [facility] For RehabilitationBilirubin Test strip Ql (U)Ordered By: Ez Delgado on 27-41-2524Lcffheujg Ql (U)NegativeNegativeChildren'S Hospital For RehabilitationBilirubin.direct [Mass/volume] in Serum or PlasmaOrdered By: Ez eDlgado on 44-90-1304Lwijxiivp.direct [Mass/Vol]0.90 mg/dL0.03-0.18FOhioHealth Arthur G.H. Bing, MD, Cancer CenterBilirubin.total [Mass/volume] in Serum or PlasmaOrdered By: Ez Delgado on 83-62-3567Viaootplc [Mass/Vol]2.2 mg/dL0.3-1.0[facility] For RehabilitationCalcium [Mass/volume] in Serum or PlasmaOrdered By: Ez Delgado on 36-61-5885Wuflydw [Mass/Vol]8.2 mg/dL8.6-10.3FOhioHealth Arthur G.H. Bing, MD, Cancer Center Carbon dioxide, total [Moles/volume] in Serum or PlasmaOrdered By: Ez Delgado on 02-04-2122CP3 [Moles/Vol]22.7 mmol/L21.0-31.0[facility] Chloride [Moles/volume] in Serum or PlasmaOrdered By: Ez Delgado on 04-10-2024 Chloride [Moles/Vol]104 mmol/F73-517CvwlulpwtChildren'S Hospital For RehabilitationColor Auto (U)Ordered By: Ez Delgado on 03-79-0642Akzov (U)YellowYellowChildren'S Hospital For RehabilitationCreatine kinase [Enzymatic activity/volume] in Serum or Plasma Ordered By: Ez Delgado on 59-45-4332KZ [Catalytic activity/Vol]32 U/L30-223 [facility] For RehabilitationCreatinine [Mass/volume] in Serum or Plasma Ordered By: Ez Delgado on 25-92-1086Rszxlqupin [Mass/Vol]0.63 mg/dL0.60-1.20 [facility] For RehabilitationEosinophils Auto (Bld) [#/Vol]Ordered By: Ez Delgado on 30-98-6557Tzwdelchaez (Bld) [#/Vol]N/AFOhioHealth Arthur G.H. Bing, MD, Cancer Center Eosinophils/100 WBC Auto (Bld)Ordered By: Ez Delgado on 04-10-2024 Eosinophils/100 WBC (Bld)N/[facility] CenterEosinophils/100 WBC Manual cnt (Bld)Ordered By: Ez Delgado on 74-90-0453Zzrsfkjtzbs/100 WBC (Bld)2 %1-3FOhioHealth Arthur G.H. Bing, MD, Cancer CenterEpithelial cells.squamous [#/area] in Urine sediment by Automated countOrdered By: Ez Delgado on 34-24-2520Epfynvenvu cells.squamous Auto (Urine sed) [#/Area]N/[facility] Erythrocyte distribution width Auto (RBC) [Ratio]Ordered By: Ez Delgado on 25-70-8488Hxksqskklwj distribution width (RBC) [Ratio]20.2 %11.9-15.3FOhioHealth Arthur G.H. Bing, MD, Cancer CenterErythrocytes [#/area] in Urine sediment by Automated countOrdered By: Ez Delgado on 43-30-5124BJM Auto (Urine sed) [#/Area]1-2 [HPF] 0-4FOhioHealth Arthur G.H. Bing, MD, Cancer CenterGiant platelets/100 leukocytes [Ratio] in Blood by Manual countOrdered By: Ez Delgado on 82-37-0885Hnpyp platelets/100 WBC Manual cnt (Bld) [Ratio]4 /100{WBC}[facility] For RehabilitationGlobulin Calc (S) [Mass/Vol]Ordered By: Ez Delgado on 30-86-8841Elltdlkq (S) [Mass/Vol] 2.3 g/dLChildren'S Hospital For RehabilitationGlucose [Mass/volume] in Serum or PlasmaOrdered By: Ez Delgado on 66-99-5028Dkbvibe [Mass/Vol]123 mg/tF49-809 [facility] For RehabilitationGlucose [Mass/volume] in Urine by Test strip Ordered By: Ez Delgado on 96-93-2594Iheoycb Test strip (U) [Mass/Vol]Normal mg/dLNormalChildren'S Hospital For RehabilitationHematocrit Auto (Bld) [Volume fraction]Ordered By: Ez Delgado on 87-56-1042Kzeepiogog (Bld) [Volume fraction] 31.6 %34.0-46.4FOhioHealth Arthur G.H. Bing, MD, Cancer CenterHemoglobin Test strip Ql (U) Ordered By: Ez Delgado on 31-43-9805Ofjzlimxzf Ql (U)NegativeNegativeChildren'S Hospital For RehabilitationHemoglobin [Mass/volume] in BloodOrdered By: Ez Delgado on 41-98-1834Mackfaqoua (Bld) [Mass/Vol]10.1 g/dL11.8-15.4FOhioHealth Arthur G.H. Bing, MD, Cancer CenterHyaline casts [#/area] in Urine sediment by Automated countOrdered By: Ez Delgado on 80-86-1869Qifamxl casts Auto (Urine sed) [#/Area]0-8 [LPF]0-8 [facility] RehabilitationHypochromia LM Ql (Bld)Ordered By: Ez Delgado on 49-85-1443Qmfkrkchskt Ql (Bld)SlightChildren'S Hospital For RehabilitationINR in Platelet poor plasma by Coagulation assayOrdered By: Ez Delgado on 06-47-0053UZQ Coag (PPP) [Relative time]1.5 {INR}[facility] For RehabilitationKetones Test strip Ql (U)Ordered By: Ez Delgado on 99-26-6859Ixhqgqg Ql (U)Negative NegativeChildren'S Hospital For RehabilitationLactate [Moles/volume] in Serum or PlasmaOrdered By: Ez Delgado on 28-00-0880Lcyxmwh [Moles/Vol]3.6 mmol/L0.5-2.2 [facility] RehabilitationLeukocyte esterase [Presence] in Urine by Test stripOrdered By: Ez Delgado on 09-28-9503Quhxdqrvr esterase Test strip Ql (U) NegativeNegativeChildren'S Hospital For RehabilitationLeukocytes [#/area] in Urine sediment by Automated countOrdered By: Ez Delgado on 94-84-0650EMS Auto (Urine sed) [#/Area]1-2 [HPF]0-4FOhioHealth Arthur G.H. Bing, MD, Cancer CenterLeukocytes [#/volume] corrected for nucleated erythrocytes in Blood by Automated counOrdered By: Ez Delgado on 28-04-7971TRJ corrected for nucl RBC Auto (Bld) [#/Vol]2.3 10*3/uL 3.8-11.6FOhioHealth Arthur G.H. Bing, MD, Cancer CenterLipase [Enzymatic activity/volume] in Serum or PlasmaOrdered By: Ez Delgado on 91-40-9564Gelzmk [Catalytic activity/Vol]31.0 U/L11.0-82.0[facility] For RehabilitationLymphocytes Auto (Bld) [#/Vol]Ordered By: Ez Delgado on 17-74-6491Pfwzcgpyeat (Bld) [#/Vol]N/A [facility] For RehabilitationLymphocytes/100 WBC Auto (Bld)Ordered By: Ez Delgado on 71-04-8987Ltgmhpspyzs/100 WBC (Bld)N/[facility] Lymphocytes/100 WBC Manual cnt (Bld)Ordered By: Ez Delgado on 04-10-2024 Lymphocytes/100 WBC (Bld)10 %18-42[facility] For RehabilitationMCH Auto (RBC) [Entitic mass]Ordered By: Ez Delgado on 00-11-2124EPK (RBC) [Entitic mass] 25.1 pg24.7-34.3FOhioHealth Arthur G.H. Bing, MD, Cancer CenterMCHC Auto (RBC) [Mass/Vol] Ordered By: Ez Delgado on 12-03-0434SHZG (RBC) [Mass/Vol]32.0 g/dL32.0-35.0 [facility] For RehabilitationMCV Auto (RBC) [Entitic vol]Ordered By: zE Delgado on 88-81-5848XAV (RBC) [Entitic vol]78.5 mA64-282GkzpxhxbsChildren'S Hospital For RehabilitationMicrocytes LM Ql (Bld)Ordered By: Ez Delgado on 04-10-2024 Microcytes Ql (Bld)ModerateChildren'S Hospital For RehabilitationMonocyte distribution width [Entitic volume] in Blood by AutomatedOrdered By: Ez Delgado on 93-30-5713Ekdjhqko distribution width Auto (Bld) [Entitic vol]Test not performed %0.00-20.00[facility] For RehabilitationComment on above:Unable to calculate MDW because the Absolute Monocyte Count is <0.8.Monocytes Auto (Bld) [#/Vol]Ordered By: Ez Delgado on 82-58-7288Gbsjggtlb (Bld) [#/Vol]N/[facility] CenterMonocytes/100 WBC Auto (Bld)Ordered By: Ez Delgado on 10-28-7034Tpmogznsu/100 WBC (Bld)N/[facility] Monocytes/100 WBC Manual cnt (Bld)Ordered By: Ez Delgado on 04-10-2024 Monocytes/100 WBC (Bld)0 %2-11[facility] For RehabilitationMucus [Presence] in Urine by AutomatedOrdered By: Ez Delgado on 15-88-3961Qcreb Auto Ql (U)Rare [LPF][facility] For RehabilitationNeutrophils Auto (Bld) [#/Vol]Ordered By: Ez Delgado on 62-60-0859Jhmnncxbdrl (Bld) [#/Vol]N/[facility] CenterNeutrophils/100 WBC Auto (Bld)Ordered By: Ez Delgado on 04-10-2024 Neutrophils/100 WBC (Bld)N/[facility] CenterNitrite Test strip Ql (U)Ordered By: Ez Delgado on 16-23-1459Rerdsyx Ql (U)NegativeNegative [facility] RehabilitationNo Panel InformationOrdered By: Ez Delgado on 04-10-2024> 60.0 mL/MinChildren'S Hospital For Rehabilitation66.46[facility] RehabilitationNo Panel InformationOrdered By: Juan J Brown on 04-10-2024 Enterobacter cloacae complexAbnoLutheran HospitalNucleated RBC/100 WBC Manual cnt (Bld) [Ratio]Ordered By: Ez Delgado on 04-10-2024 Nucleated RBC/100 WBC (Bld) [Ratio]2 /100{WBC}High0-0[facility] For RehabilitationNucleated erythrocytes [Presence] in Blood by Automated countOrdered By: Ez Delgado on 90-54-9237Krpvratde RBC Auto Ql (Bld)NGrant HospitalPlatelet adequacy [Presence] in Blood by Light microscopyOrdered By: Ez Delgado on 38-74-1781Ourvlidjf LM Ql (Bld)DecreasedNoLutheran HospitalPlatelet mean volume Auto (Bld) [Entitic vol]Ordered By: Ez Delgado on 32-93-8671Kkyehdaf mean volume (Bld) [Entitic vol]8.8 fL6.3-10.7 [facility] For RehabilitationPlatelet morphology finding [Identifier] in BloodOrdered By: Ez Delgado on 20-21-2279Wrekraud morphology finding Nom (Bld) NormalNormWood County HospitalPlatelets Auto (Bld) [#/Vol]Ordered By: Ez Delgado on 16-05-6558Zbgsstsqs (Bld) [#/Vol]62 10*3/hO307-836WevktyjotChildren'S Hospital For RehabilitationPoikilocytosis [Presence] in Blood by Light microscopy Ordered By: Ez Delgado on 69-85-0805Tbibvvgrzfiyhz LM Ql (Bld)ModerateChildren'S Hospital For RehabilitationPolychromasia [Presence] in Blood by Light microscopy Ordered By: Ez Delgado on 64-93-8991Nzunxezufffuj LM Ql (Bld)[facility] HospitalPotassium [Moles/volume] in Serum or PlasmaOrdered By: zE Delgado on 07-37-5819Hovdwqniy [Moles/Vol]3.4 mmol/L3.5-5.1FOhioHealth Arthur G.H. Bing, MD, Cancer CenterProtein Test strip (U) [Mass/Vol]Ordered By: Ez Delgado on 11-87-2677Bhogidz (U) [Mass/Vol]20 mg/dLHighNegativeChildren'S Hospital For RehabilitationProtein [Mass/volume] in Serum or PlasmaOrdered By: Ez Delgado on 75-55-9908Uhsohup [Mass/Vol]5.4 g/dL6.4-8.9[facility] Prothrombin time (PT)Ordered By: Ez Delgado on 47-25-5017ZY Coag (PPP) [Time] 16.9 s9.0-12.9[facility] For RehabilitationRB Auto (Bld) [#/Vol]Ordered By: Ez Delgado on 71-06-7355UIE (Bld) [#/Vol]4.02 10*6/uL3.60-5.00[facility] morphologyOrdered By: Ez Delgado on 29-94-0718XJY morphology finding Nom (Bld)N/[facility] Trumbullchistocytes [Presence] in Blood by Light microscopyOrdered By: Ez Delgado on 04-10-2024 Schistocytes LM Ql (Bld)[facility] Hospitalegmented neutrophils/100 WBC Manual cnt (Bld)Ordered By: Ez Delgdao on 04-10-2024 Segmented neutrophils/100 WBC (Bld)79 %50-70[facility] Serum or plasma albumin/globulin mass ratioOrdered By: Ez Delgado on 04-10-2024 Albumin/Globulin [Mass ratio]1.3 {ratio}[facility] Healtherum or plasma anion gap determinationOrdered By: Ez Delgado on 87-18-3362Bvjtg gap [Moles/Vol]13.7 mmol/L6.0-15.0Summa Healtherum or plasma non-glucuronidated bilirubin measurement (mass/volume)Ordered By: Ez Delgado on 22-98-5107Chygijmci.indirect [Mass/Vol]1.3 mg/dLSumma Healthodium [Moles/volume] in Serum or PlasmaOrdered By: Ez Delgado on 08-09-9055Ilhshz [Moles/Vol]137 mmol/U279-122KijwshmkyChildren'S Hospital For Rehabilitation Specific gravity Test strip (U) [Rel density]Ordered By: Ez Delgado on 56-88-2195Cznsfvxn gravity (U) [Rel density]1.0231.001-1.030[facility] RehabilitationTeardrop cell detectionOrdered By: Ez Delgado on 04-10-2024 Dacrocytes LM Ql (Bld)[facility]'s HospitalToxic leukocyte vacuolation detectionOrdered By: Ez Delgado on 86-80-1098Ocvnhoels toxic vacuoles LM Ql (Bld)[facility]'s HospitalTroponin I.cardiac [Mass/volume] in Serum or Plasma by Detection limit <= 0.01 ng/Ordered By: Ez Delgado on 48-61-3340Cgbyhssi I.cardiac DL <= 0.01 ng/mL [Mass/Vol]16.4 pg/mLHigh 0.0-15.0[facility] For RehabilitationUrea nitrogen [Mass/volume] in Serum or PlasmaOrdered By: Ez Delgado on 89-79-4713Mzjf nitrogen [Mass/Vol]14 mg/dL7-25 [facility] For RehabilitationUrine appearanceOrdered By: Ez Delgado on 98-97-8620Zrlersobrc (U)ClearClearFOhioHealth Arthur G.H. Bing, MD, Cancer CenterUrobilinogen Test strip (U) [Mass/Vol]Ordered By: Ez Delgado on 88-16-4951Tymlhsushgit (U) [Mass/Vol]4 mg/dLHighNormalChildren'S Hospital For RehabilitationWBC Auto (Bld) [#/Vol]Ordered By: Ez Delgado on 83-86-5453RBU (Bld) [#/Vol]2.3 10*3/uL3.8-11.6 [facility] For RehabilitationpH Test strip (U)Ordered By: Ez Delgado on 87-15-7763kJ (U)5.5 [pH]5.0-9.0[facility] W Auto Differential panel (Bld)on 75-78-7568Xsoxuiflg (Bld) [#/Vol]0.01 x10*3/uLNormal 0.00-0.10[facility] CenterComment on above:Performed By: #### [id number] ####WIL HOLBROOK ([id number])[facility] (ALEX)[address] [place], [place] [address]Tiklnqufl/100 WBC (Bld)0.3 %Normal 0.0-2.0UnCleveland Clinic Mercy HospitalComment on above:Performed By: #### 49973-0 ####WIL HOLBROOK ([id number])[facility] (ALEX)[address] [place], [place] [address]Uljkuasvjlr (Bld) [#/Vol]0.11 x10*3/uL Normal0.00-0.70UnCleveland Clinic Mercy HospitalComment on above: Performed By: #### [id number] ####WIL HOLBROOK ([id number])[facility] (ALEX)[address] [place], [place] [address]Pgawhczzfis/100 WBC (Bld)3.1 % Normal0.0-6.0UnCleveland Clinic Mercy HospitalComment on above: Performed By: #### [id number] ####WIL HOLBROOK ([id number])[facility] (ALEX)[address] [place], [place] [address]Pontahtxsso distribution width (RBC) [Ratio]19.3 %High11.5-14.5[facility] Comment on above:Performed By: #### [id number] ####WIL HOLBROOK ([id number])[facility] (ALEX)[address] [place], [place] [address]Rfwcoblpqa (Bld) [Volume fraction]26.9 %Low36.0-46.0[facility] CenterComment on above:Performed By: #### 34348-1 ####WIL HOLBROOK ([id number])[facility] (ALEX)[address], [place] [address]Ekzkkobuuv (Bld) [Mass/Vol]8.0 g/dLLow12.0-16.0[facility] CenterComment on above:Performed By: #### 17510-7 ####WIL HOLBROOK ([id number])[facility] (ALEX)[address] [place], [place] [address]Njwcjewq granulocytes (Bld) [#/Vol]0.16 x10*3/uLNormal0.00-0.70UnCleveland Clinic Mercy HospitalComment on above:Performed By: #### 14689-3 ####WIL HOLBROOK ([id number])[facility] ([facility]EX)[address], [place] [address]Potfvwcm granulocytes/100 WBC (Bld)4.5 %High0.0-0.9UnCleveland Clinic Mercy HospitalComment on above:Result Comment: Immature Granulocyte Count (IG) includes promyelocytes, myelocytes and metamyelocytes but does not include bands. Percent differential counts (%) should be interpreted in the context of the absolute cell counts (cells/UL).Performed By: #### 81154-3 ####WIL HOLBROOK ([id number])[facility] (ALEX)[address], [place] [address]Ulevjaqzwds (Bld) [#/Vol]0.72 x10*3/uLLow1.20-4.80 [facility] CenterComment on above:Performed By: #### 30045-5 ####WIL HOLBROOK ([id number])[facility] ([place]EX)[address], [place] [address]Rkkcnsbxapo/100 WBC (Bld)20.1 %Prddav05.0-44.0 [facility] CenterComment on above:Performed By: #### 21906-8 ####WIL Villalobos'VANDANA ([id number])[facility] (ALEX)[address], [place] [address]UAQ (RBC) [Entitic mass]24.7 pgLow26.0-34.0 [facility] CenterComment on above:Performed By: #### 02696-5 ####WIL Villalobos'VANDANA ([id number])[facility] (ALEX)[address], [place] [address]KURK (RBC) [Mass/Vol]29.7 g/dLLow32.0-36.0 [facility] CenterComment on above:Performed By: #### 62075-1 ####WIL Villalobos'VANDANA ([id number])[facility] (ALEX)[address], [place] [address]XJU (RBC) [Entitic vol]83 kPDmdrye09-457KfaozblbbkCleveland Clinic Mercy HospitalComment on above:Performed By: #### 14931-3 ####WIL Villalobos'VANDANA ([id number])[facility] ([facility]EX)[address], [place] [address]Kwxknzhef (Bld) [#/Vol]0.53 x10*3/uLNormal0.10-1.00 [facility] CenterComment on above:Performed By: #### 30066-9 ####WIL Villalobos'VANDANA ([id number])[facility] (ALEX)[address] [place], [place] [address]Hgfwgychw/100 WBC (Bld)14.8 %Normal2.0-10.0 [facility] CenterComment on above:Performed By: #### 57944-6 ####WIL HOLBROOK ([id number])[facility] (ALEX)[address], [place] [address]Qbcnsxwhezh (Bld) [#/Vol]2.06 x10*3/uLNormal 1.20-7.70UnCleveland Clinic Mercy HospitalComment on above:Result Comment: Percent differential counts (%) should be interpreted in the context of the absolute cell counts (cells/uL).Performed By: #### 87544-0 ####WIL Villalobos'VANDANA ([id number])[facility] (ALEX)[address] [place], [place] [address]Qtlnriovikb/100 WBC (Bld)57.2 %Lxenfs80.0-80.0[facility] CenterComment on above:Performed By: #### 40175-4 ####WIL Villalobos'VANDANA ([id number])[facility] (ALEX)[address] [place], [place] [address]Cfvpjpyqz RBC/100 WBC (Bld) [Ratio]0.0 /100 WBCsNormal0.0-0.0[facility] CenterComment on above:Performed By: #### 75643-6 ####WIL Villalobos'VANDANA ([id number])[facility] (ALEX)[address] [place], [place] [address]Ylmeigytg (Bld) [#/Vol]65 x10*3/mQEus729-610FkthhwesdqCleveland Clinic Mercy HospitalComment on above:Performed By: #### 52812-6 ####WIL Villalobos'VANDANA ([id number])[facility] (ALEX)[address], [place] [address]RHX (Bld) [#/Vol]3.24 x10*6/uLLow4.00-5.20[facility] CenterComment on above:Performed By: #### 11561-1 ####WIL Villalobos'VANDANA ([id number])[facility] (ALEX)[address], [place] [address]PWN (Bld) [#/Vol]3.6 x10*3/uLLow4.4-11.3[facility] CenterComment on above:Performed By: #### 16431-1 ####WIL HOLBROOK ([id number])[facility] (ALEX)[address] [address]Mjeckwmjtfenf metabolic 2000 panelon 26-18-9799Ytgjplf BCP dye [Mass/Vol]3.3 g/dLLow3.4-5.0UnCleveland Clinic Mercy Hospital Comment on above:Performed By: #### 80824-7 ####WIL HOLBROOK ([id number])[facility] (ALEX)[address] [place], [place] [address]LYL [Catalytic activity/Vol]101 U/TMoubcc67-133WyebsgslrdCleveland Clinic Mercy HospitalComment on above:Performed By: #### 01570-5 ####WIL HOLBROOK ([id number])[facility] ([facility]EX)[address] [place] [address] ALT With P-5'-P [Catalytic activity/Vol]20 U/LNormal7-45UnCleveland Clinic Mercy HospitalComment on above:Result Comment: Patients treated with Sulfasalazine may generate falsely decreased results for ALT.Performed By: #### 17919-3 ####WIL HOLBROOK ([id number])[facility] ([facility]EX)[address] [place], [place] [address]Vccnj gap [Moles/Vol]13 mmol/GTqkrqb43-77IlfyoeoprxSouthview Medical CenterComment on above:Performed By: #### 84582-3 ####WIL HOLBROOK ([id number])[facility] (ALEX)[address] [place], [place] [address]RXH With P-5'-P [Catalytic activity/Vol]31 U/LNormal9-39 [facility] CenterComment on above:Performed By: #### 54128-6 ####WIL Villalobos'VANDANA ([id number])[facility] ([facility]EX)[address] [place] [address]Fxqmgljsq [Mass/Vol]1.3 mg/dLHigh0.0-1.2[facility] Medical CenterComment on above:Performed By: #### 10700-8 ####WIL Villalobos'VANDANA ([id number])[facility] (ALEX)[address] [place], [place] [address]Evoxnzh [Mass/Vol]8.0 mg/dLLow8.6-10.3[facility] Medical CenterComment on above:Performed By: #### 48566-7 ####WIL O'VANDANA ([id number])[facility] (ALEX)[address] [place], [place] [address]Ithfkdnt [Moles/Vol]103 mmol/OJvtros73-509ZvtyldcofiSouthview Medical CenterComment on above:Performed By: #### 75792-9 ####WIL Villalobos'VANDANA ([id number])[facility] ([facility]EX)[address] [place] [address] CO2 [Moles/Vol]25 mmol/CRlesvo39-42RojhnwzqohSouthview Medical Center Comment on above:Performed By: #### 48821-0 ####WIL Villalobos'VANDANA ([id number])[facility] (ALEX)[address] [place], [place] [address]Jydurdeapp [Mass/Vol]0.48 mg/dLLow0.50-1.05[facility] Comment on above:Performed By: #### 07853-1 ####WIL Villalobos'VANDANA ([id number])[facility] ([facility]EX)[address] [place] [address]UJD/1.73 sq M.predicted MDRD (S/P/Bld) [Vol rate/Area]mL/min/{1.73_m2}Normal>60UnCleveland Clinic Mercy HospitalComment on above:Result Comment: Calculations of estimated GFR are performed using the 2020 CKD-EPI Study Refit equation without the race variable for the IDMS-Traceable creatinine methods.https://jasn.asnjournals.org/content//ASN.8119882541 Performed By: #### 84092-9 ####WIL Villalobos'VANDANA ([id number])[facility] ([facility]EX)[address] [place], [place] [address]Elfzyju [Mass/Vol]102 mg/dLHigh 74-99UnCleveland Clinic Mercy HospitalComment on above:Performed By: #### 88508-8 ####WIL Villalobos'VANDANA ([id number])[facility] ([facility]EX)[address] [place], [place] [address]Mhyofzdih [Moles/Vol]3.9 mmol/LNormal 3.5-5.3UnCleveland Clinic Mercy HospitalComment on above:Performed By: #### 91630-4 ####WIL Villalobos'VANDANA ([id number])[facility] ([facility]EX)[address] [place], [place] [address]Drmdale [Mass/Vol]5.3 g/dLLow6.4-8.2 [facility] CenterComment on above:Performed By: #### 55540-8 ####WIL Villalobos'VANDANA ([id number])[facility] (ALEX)[address] [place], [place] [address]Ksqknu [Moles/Vol]137 mmol/LKbhytv890-918MoepdgonsaCleveland Clinic Mercy HospitalComment on above:Performed By: #### 74579-9 ####WIL Villalobos'VANDANA ([id number])[facility] (ALEX)[address] [place], [place] [address]Daps nitrogen [Mass/Vol]12 mg/dLNormal6-23[facility] Medical CenterComment on above:Performed By: #### 15054-8 ####WIL Villalobos'VANDANA ([id number])[facility] (ALEX)[address] [place], [place] [address]KBXCTZWKPPVRSFU (IGG, IGA, IGM)on 50-61-8242IzI [Mass/Vol] mg/lKUwy93-186HqxmonoqptSouthview Medical CenterComment on above: Order Comment: MONOCLONAL PROTEINS MAY CAUSE FALSELY LOWRESULTS IN THIS ASSAY. SERUM PROTEINELECTROPHORESIS SHOULD BE DONE THEFIRST TEST TO EVALUATE MONOCLONAL GAMMOPATHY.Performed By: #### IGS ####ARNULFO Roger ([id number])[facility] ([facility])[address] [place], [place] [address]VpB [Mass/Vol]508 mg/lHVke335-0689CzizjghtdnCleveland Clinic Mercy HospitalComment on above: Order Comment: MONOCLONAL PROTEINS MAY CAUSE FALSELY LOWRESULTS IN THIS ASSAY. SERUM PROTEINELECTROPHORESIS SHOULD BE DONE THEFIRST TEST TO EVALUATE MONOCLONAL GAMMOPATHY.Performed By: #### IGS ####ARNULFO Roger ([id number])[facility] ([facility])[address] [place], [place] [address]DxZ [Mass/Vol]mg/dL Sso80-719WcmgzardshCleveland Clinic Mercy HospitalComment on above:Order Comment: MONOCLONAL PROTEINS MAY CAUSE FALSELY LOWRESULTS IN THIS ASSAY. SERUM PROTEINELECTROPHORESIS SHOULD BE DONE THEFIRST TEST TO EVALUATE MONOCLONAL GAMMOPATHY.Performed By: #### IGS ####ARNULFO Roger ([id number])[facility] ([facility])[address] [place], [place] [address]Hdkxuoqgvmwyup light chains.free panel (S)on 52-30-6605Oalndfjaeliidc light chains.kappa [Mass/Vol]<0.08Low 0.33-1.94[facility] Medical CenterComment on above:Order Comment: Undetected antigen [...] be discussedwith the testing laboratory.Performed By: #### 16333-1 ####ARNULFO Roger ([id number])[facility] ([facility])[address] [place], [place] [address]Ycdqoqpgfqyvua light chains.kappa/Immunoglobulin light chains.lambda (S) [Mass ratio]Normal [facility] Medical CenterComment on above:Order Comment: Undetected antigen [...] measurement range.Calculation cannot be performed.Performed By: #### 66641-1 ####ARNULFO Roger ([id number])[facility] ([facility])[address] [place] [address]Kbirjzpgutishi light chains.lambda [Mass/Vol]<0.17Low 0.57-2.63[facility] Medical CenterComment on above:Order Comment: Undetected antigen [...] be discussedwith the testing laboratory.Performed By: #### 53954-0 ####ARNULFO Roger ([id number])[facility] ([facility])[address] [place], [place] [address]Xfrgmnp dehydrogenaseon 87-54-4854KLM Lactate to pyruvate reaction [Catalytic activity/Vol]326 U/CQqwb35-080XmpqppmlolSouthview Medical Center Comment on above:Performed By: #### 49321-3 ####WIL HOLBROOK ([id number])[facility] (ALEX)[address] [place], [place] [address]Wzskkbgmk 80-45-3322Kygvajg [Mass/Vol]5.1 g/dLLow6.4-8.2[facility] Medical CenterComment on above:Performed By: #### 2885-2 ####ARNULFO Roger ([id number])[facility] ([facility])[address] [place], [place] [address]Tbjhdou electrophoresis panelon 75-53-4578Cccxdwo [Mass/Vol]2.9 g/dLLow3.4-5.0UnCleveland Clinic Mercy HospitalComment on above:Performed By: #### 67167-1 ####ARNULFO Roger ([id number])[facility] ([facility])[address] [place], [place] [address]KTCPV 1 GLOBULIN0.4 g/dLNormal0.2-0.6UnCleveland Clinic Mercy HospitalComment on above:Performed By: #### 06998-5 ####ARNULFO Roger ([id number])[facility] ([facility])[address] [place], [place] [address]GITWF 2 GLOBULIN0.7 g/dLNormal0.4-1.1[facility] Comment on above:Performed By: #### 17681-5 ####ARNULFO Roger ([id number])[facility] ([facility])[address] [place], [place] [address]YSQS GLOBULIN0.7 g/dLNormal0.5-1.2UnCleveland Clinic Mercy HospitalComment on above: Performed By: #### 59718-9 ####ARNULFO Roger ([id number])[facility] ([facility])[address] [place], [place] [address]KPAVX GLOBULIN0.4 g/dLLow0.5-1.4UnCleveland Clinic Mercy HospitalComment on above:Performed By: #### 49272-7 ####ARNULFO Roger ([id number])[facility] ([facility])[address] [place], [place] [address]DRAR REVIEW-SERUM PROTEIN ELECTROPHORESISReviewed and approved by CASS FREEDMAN on 04/06/24 at 11:58 PM.NormalUnCleveland Clinic Mercy Hospital Comment on above:Performed By: #### 49993-0 ####ARNULFO Roger ([id number])[facility] ([facility])[address] [place], [place] [address]QAHQYPP ELECTROPHORESIS COMMENTSEE COMMENTNormalUniMcKitrick HospitalComment on above:Result Comment: Hypoalbuminemia. Decrease in polyclonal gamma globulins.Performed By: #### 52288-6 ####ARNULFO Roger ([id number])[facility] ([facility])[address] [place] [address]Pdqpgid 04-05-2024 Urate [Mass/Vol]4.4 mg/dLNormal2.3-6.7[facility] Medical CenterComment on above:Result Comment: Venipuncture immediately after or during the administration of Metamizole may lead to falsely low results. Testing should be performed immediatelyprior to Metamizole dosing.Performed By: #### 3084-1 ####WIL HOLBROOK ([id number])[facility] (ALEX)[address] [place] [address]CBC W Auto Differential panel (Bld)on 03-22-2024 Erythrocyte distribution width (RBC) [Ratio]19.3 %High11.5-14.5[facility] Medical CenterComment on above:Order Comment: The previously reported component [...] is no longer being reported.Performed By: #### 35815-1 ####WIL HOLBROOK ([id number])[facility] (ALEX)[address] [place], [place] [address]Vrdieeqauo (Bld) [Volume fraction]26.8 %Low36.0-46.0UnCleveland Clinic Mercy HospitalComment on above:Order Comment: The previously reported [...] is no longer being reported.Performed By: #### 42630-7 ####WIL HOLBROOK ([id number])[facility] ([facility])[address] [place], [place] [address]Ysnqlcbugp (Bld) [Mass/Vol]8.0 g/dLLow 12.0-16.0UnCleveland Clinic Mercy HospitalComment on above:Order Comment: The previously reported [...] is no longer being reported.Performed By: #### 24659-1 ####WIL HOLBROOK ([id number])[facility] ([facility])[address] [place] [address] Immature granulocytes (Bld) [#/Vol]0.24 x10*3/uLNormal0.00-0.70UnCleveland Clinic Mercy HospitalComment on above:Order Comment: The previously reported [...] is no longer being reported.Performed By: #### 24794-3 ####WIL HOLBROOK ([id number])[facility] (ALEX)[address] [facility] [place] [address]Ndzsyvtc granulocytes/100 WBC (Bld)9.8 %High0.0-0.9[facility] Medical CenterComment on above:Order Comment: The previously reported component [...] absolute cell counts (cells/UL). Performed By: #### 24925-7 ####WIL HOLBROOK ([id number])[facility] (ALEX)[address] [facility] [address]OHI (RBC) [Entitic mass]25.0 pgLow 26.0-34.0UnCleveland Clinic Mercy HospitalComment on above:Order Comment: The previously reported [...] is no longer being reported.Performed By: #### 49156-7 ####WIL HOLBROOK ([id number])[facility] ([facility])[address] [place] [address] MCHC (RBC) [Mass/Vol]29.9 g/dLLow32.0-36.0[facility] Medical CenterComment on above:Order Comment: The previously reported component [...] is no longer being reported.Performed By: #### 68612-9 ####WIL HOLBROOK ([id number])[facility] (ALEX)[address] [facility] [place] [address]HXK (RBC) [Entitic vol]84 fLNormal 80-100UnCleveland Clinic Mercy HospitalComment on above:Order Comment: The previously reported [...] is no longer being reported.Performed By: #### 66364-1 ####WIL HOLBROOK ([id number])[facility] (ALEX)[address] [place] [address] Nucleated RBC/100 WBC (Bld) [Ratio]0.0 /100 WBCsNormal0.0-0.0[facility] Medical CenterComment on above:Order Comment: The previously reported component [...] is no longer being reported.Performed By: #### 63454-6 ####WIL HOLBROOK (565332)[facility] (ALEX)[address] [place], [place] [address]Rianmjxne (Bld) [#/Vol]38 x10*3/uLCritically ztk782-964EjimsimucbCleveland Clinic Mercy HospitalComment on above:Order Comment: The previously reported [...] verified on 03/22/2024 1512 on specimen/case 24US- [id number] called with component PLT for procedure CBC and Auto Differential with value 38 x10*3/uL.Performed By: #### 24535-3 ####WIL HOLBROOK ([id number])[facility] (ALEX)[address] [place], [place] [address]PPY (Bld) [#/Vol]3.20 x10*6/uLLow4.00-5.20[facility] Comment on above:Order Comment: The previously reported [...] is no longer being reported.Performed By: #### 85220-8 ####WIL HOLBROOK ([id number])[facility] (ALEX)[address] [place] [address] WBC (Bld) [#/Vol]2.5 x10*3/uLLow4.4-11.3[facility] Medical CenterComment on above:Order Comment: The previously reported component [...] is no longer being reported.Performed By: #### 26955-3 ####WIL HOLBROOK ([id number])[facility] (ALEX)[address] [place] [place] [address]Hezvkqeiplfuh metabolic 2000 panelon 38-31-5513Xzrlxaz BCP dye [Mass/Vol]3.3 g/dLLow3.4-5.0[facility] Medical CenterComment on above:Performed By: #### 91331-4 ####WIL HOLBROOK ([id number])[facility] (ALEX)[address] [place], [place] [address]ZWD [Catalytic activity/Vol]106 U/CHwovgt16-040SmmunxtfrxCleveland Clinic Mercy HospitalComment on above:Performed By: #### 22312-1 ####WIL HOLBROOK ([id number])[facility] (ALEX)[address] [place], [place] [address]CAQ With P-5'-P [Catalytic activity/Vol]21 U/LNormal7-45[facility] Medical CenterComment on above:Result Comment: Patients treated with Sulfasalazine may generate falsely decreased results for ALT. Performed By: #### 80612-0 ####WIL HOLBROOK ([id number])[facility] (ALEX)[address] [place], [place] [address]Vhpbw gap [Moles/Vol]12 mmol/L Lnsxth44-14CrizaswxboSouthview Medical CenterComment on above: Performed By: #### 10821-6 ####WIL HOLBROOK ([id number])[facility] (ALEX)[address] [place], [place] [address]TDB With P-5'-P [Catalytic activity/Vol]35 U/LNormal9-39[facility] Comment on above:Performed By: #### 06873-4 ####WIL HOLBROOK ([id number])[facility] (ALEX)[address] [place], [place] [address]Coafkdxjo [Mass/Vol]1.3 mg/dLHigh0.0-1.2[facility] Comment on above:Performed By: #### 82256-2 ####WIL HOLBROOK ([id number])[facility] (ALEX)[address] [place], [place] [address]Kaqncrh [Mass/Vol]8.4 mg/dLLow8.6-10.3[facility] Comment on above:Performed By: #### 04857-1 ####WIL Villalobos'VANDANA ([id number])[facility] (ALEX)[address] [place], [place] [address]Idahvyog [Moles/Vol]105 mmol/PMgqkzq05-530KxczfieuynSouthview Medical Center Comment on above:Performed By: #### 69625-7 ####WIL Villalboos'VANDANA (060613)[facility] (ALEX)[address] [place], [place] [address]EJ1 [Moles/Vol]26 mmol/NVezvtw96-07QcwyihzhfdSouthview Medical Center Comment on above:Performed By: #### 96254-0 ####WIL Villalobos'VANDANA ([id number])[facility] (ALEX)[address] [place], [place] [address]Uuzzynhrax [Mass/Vol]0.43 mg/dLLow0.50-1.05[facility] Comment on above:Performed By: #### 71759-0 ####WIL Villalobos'VANDANA (052681)[facility] (ALEX)[address] [place], [place] [address]AWR/1.73 sq M.predicted MDRD (S/P/Bld) [Vol rate/Area]mL/min/{1.73_m2}Normal>60UnCleveland Clinic Mercy HospitalComment on above:Result Comment: Calculations of estimated GFR are performed using the 2020 CKD-EPI Study Refit equation without the race variable for the IDMS-Traceable creatinine methods.https://jasn.asnjournals.org/content//ASN.0593759086 Performed By: #### 18289-9 ####WIL Villalobos'VANDANA ([id number])[facility] (ALEX)[address] [place], [place] [address]Vpurlie [Mass/Vol]98 mg/dLNormal 74-99[facility] Medical CenterComment on above:Performed By: #### 57794-5 ####WIL Villalobos'VANDANA ([id number])[facility] (ALEX)[address] [place], [place] [address]Hgcufsnuk [Moles/Vol]3.9 mmol/LNormal 3.5-5.3UnCleveland Clinic Mercy HospitalComment on above:Performed By: #### 49342-2 ####WIL Villalobos'VANDANA (920871)[facility] (ALEX)[address] [place], [place] [address]Nvfxvkw [Mass/Vol]5.2 g/dLLow6.4-8.2 [facility] CenterComment on above:Performed By: #### 29608-3 ####WIL Villalobos'VANDANA (889697)[facility] (ALEX)[address] [place] [address]Smphye [Moles/Vol]139 mmol/SXynsaz515-913YxwlgwiphuCleveland Clinic Mercy HospitalComment on above:Performed By: #### 35260-7 ####WIL Villalobos'VANDANA ([id number])[facility] (ALEX)[address] [place], [place] [address]Cwnv nitrogen [Mass/Vol]11 mg/dLNormal6-23[facility] Medical CenterComment on above:Performed By: #### 88089-9 ####WIL HOLBROOK (588572)[facility] (ALEX)[address] [place] [address]Qbumyk differential performed Ql (Bld)on 91-77-8742Hixf form neutrophils (Bld) [#/Vol]0.03 x10*3/uLNormal0.00-0.70[facility] Medical CenterComment on above:Performed By: #### 87368-1 ####WIL HOLBROOK (599257)[facility] (ALEX)[address] [place], [place] [address]Gewf form neutrophils/100 WBC (Bld)1.0 %Normal0.0-5.0[facility] CenterComment on above:Performed By: #### 34864-6 ####WIL HOLBROOK ([id number])[facility] (ALEX)[address] [place], [place] [address]Vhxsaxvfr (Bld) [#/Vol]0.00 x10*3/uLNormal0.00-0.10 [facility] CenterComment on above:Performed By: #### 23113-3 ####WIL HOLBROOK ([id number])[facility] (ALEX)[address] [place] [address]Fpnrhkjws/100 WBC (Bld)0.0 %Normal0.0-2.0UnCleveland Clinic Mercy HospitalComment on above:Performed By: #### 34644-6 ####WIL HOLBROOK ([id number])[facility] (ALEX)[address] [place], [place] [address]Fvfop Counted Total (Bld) [#]100[facility] CenterComment on above:Performed By: #### 88097-7 ####WIL HOLBROOK ([id number])[facility] (ALEX)[address] [place], [place] [address]Ppywziflsh LM Ql (Bld)FewNoAshtabula County Medical CenterComment on above:Performed By: #### 60563-4 ####WIL HOLBROOK ([id number])[facility] (ALEX)[address] [place], [place] [address]Iqtxknribxq (Bld) [#/Vol]0.08 x10*3/uLNormal0.00-0.70[facility] CenterComment on above:Performed By: #### 01684-4 ####WIL HOLBROOK ([id number])[facility] (ALEX)[address] [place] [address] Eosinophils/100 WBC (Bld)3.0 %Normal0.0-6.0[facility] CenterComment on above:Performed By: #### 50108-3 ####WIL Villalobos'VANDANA ([id number])[facility] (ALEX)[address] [place] [address] Hypochromia Ql (Bld)MildNormalUniMcKitrick Hospital Comment on above:Performed By: #### 03243-7 ####WIL Villalobos'VANDANA ([id number])[facility] (ALEX)[address] [place] [address]Atnenwfzbrk (Bld) [#/Vol]0.60 x10*3/uLLow1.20-4.80[facility] CenterComment on above:Performed By: #### 58443-2 ####WIL Villalobos'VANDANA ([id number])[facility] (ALEX)[address] [place] [address] Lymphocytes/100 WBC (Bld)24.0 %Dyswkb22.0-44.0[facility] CenterComment on above:Performed By: #### 57717-8 ####WIL Villalobos'VANDANA ([id number])[facility] (ALEX)[address] [place] [address] Monocytes (Bld) [#/Vol]0.08 x10*3/uLLow0.10-1.00[facility] CenterComment on above:Performed By: #### 50007-7 ####WIL Villalobos'VANDANA (908975)[facility] (ALEX)[address] [place] [address] Monocytes/100 WBC (Bld)3.0 %Normal2.0-10.0[facility] Medical CenterComment on above:Performed By: #### 02635-6 ####WIL Villalobos'VANDANA ([id number])[facility] (ALEX)[address] [place] [address] Myelocytes (Bld) [#/Vol]0.03 x10*3/uLNormal0.00-0.00[facility] CenterComment on above:Performed By: #### 78092-8 ####WIL Villalobos'VANDANA ([id number])[facility] (ALEX)[address] [place] [address]Qzgursgcyw/100 WBC (Bld)1.0 %Normal0.0-0.0[facility] CenterComment on above:Performed By: #### 86167-4 ####WIL Villalobos'VANDANA (232507)[facility] (ALEX)[address] [place] [address] Neutrophils (Bld) [#/Vol]1.73 x10*3/uLNormal1.20-7.70UnCleveland Clinic Mercy HospitalComment on above:Performed By: #### 91865-1 ####WIL Villalobos'VANDANA (860927)[facility] (ALEX)[address] [place], [place] [address]Ernbyltfxfk.hypersegmented LM Ql (Bld)[facility] Medical CenterComment on above:Performed By: #### 33245-2 ####WIL Villalobos'VANDANA (406673)[facility] (ALEX)[address] [place] [address]Niqfgwxlro LM Ql (Bld)[facility]tering Health DaytonComment on above:Performed By: #### 90388-7 ####WIL Villalobos'VANDANA (196503)[facility] (ALEX)[address] [place] [address] Polychromasia LM Ql (Bld)[facility] Comment on above:Performed By: #### 53820-7 ####WIL Villalobos'VANDANA ([id number])[facility] (ALEX)[address] [place], [place] [address]YRN morphology finding Nom (Bld)See BelowSouthwest General Health CenterComment on above:Performed By: #### 80404-6 ####WIL Villalobos'VANDANA ([id number])[facility] (ALEX)[address] [place] [address] Rouleaux LM Ql (Bld)PresentNoAshtabula County Medical Center Comment on above:Performed By: #### 96859-1 ####WIL Villalobos'VANDANA ([id number])[facility] (ALEX)[address] [place], [place] [address]Wicelgjta neutrophils (Bld) [#/Vol]1.70 x10*3/uLNormal1.20-7.00UnCleveland Clinic Mercy HospitalComment on above:Performed By: #### 02342-1 ####WIL Villalobos'VANDANA ([id number])[facility] (ALEX)[address] [place], [place] [address]Yypwpfzim neutrophils/100 WBC (Bld)68.0 %Yesswq16.0-80.0[facility] Medical CenterComment on above:Result Comment: Percent differential counts (%) should be interpreted in the context of the absolute cell counts (cells/uL).Performed By: #### 42538-3 ####WIL Villalobos'VANDANA ([id number])[facility] ([facility]EX)[address] [place], [place] [address]KAL W Auto Differential panel (Bld)on [id number] (Bld) [#/Vol]0.00 x10*3/uLNormal 0.00-0.10[facility] CenterComment on above:Performed By: #### [id number] ####WIL Villalobos'VANDANA ([id number])[facility] ([place]EX)[address] [place], [place] [address]Avyvahnpi/100 WBC (Bld)0.0 %Normal 0.0-2.0UnCleveland Clinic Mercy HospitalComment on above:Performed By: #### 66549-7 ####WIL HOLBROOK ([id number])[facility] ([place])[address] [place], [place] [address]Tcycdfytfti (Bld) [#/Vol]0.06 x10*3/uL Normal0.00-0.70UnCleveland Clinic Mercy HospitalComment on above: Performed By: #### 54334-7 ####WIL HOLBROOK ([id number])[facility] ([place])[address] [place], [place] [address]Crqoxuuadpj/100 WBC (Bld)2.3 % Normal0.0-6.0UnCleveland Clinic Mercy HospitalComment on above: Performed By: #### 41919-9 ####WIL HOLBROOK ([id number])[facility] ([place]EX)[address] [place], [place] [address]Pujnqlkrhot distribution width (RBC) [Ratio]19.6 %High11.5-14.5[facility] Comment on above:Performed By: #### 96540-6 ####WIL HOLBROOK ([id number])[facility] ([place])[address] [place], [place] [address]Kkhnunxhcd (Bld) [Volume fraction]27.3 %Low36.0-46.0UnCleveland Clinic Mercy HospitalComment on above:Performed By: #### 30684-0 ####WIL HOLBROOK ([id number])[facility] ([place])[address] [place], [place] [address]Tghqvqjmkm (Bld) [Mass/Vol]8.1 g/dLLow12.0-16.0UnCleveland Clinic Mercy HospitalComment on above:Performed By: #### 47289-4 ####WIL HOLBROOK ([id number])[facility] ([place])[address] [place], [place] [address]Jnkzuzts granulocytes (Bld) [#/Vol]0.15 x10*3/uLNormal0.00-0.70UnCleveland Clinic Mercy HospitalComment on above:Performed By: #### 79261-2 ####WIL HOLBROOK ([id number])[facility] ([place])[address] [place], [place] [address]Bbuchxov granulocytes/100 WBC (Bld)5.7 %High0.0-0.9UnCleveland Clinic Mercy HospitalComment on above:Result Comment: Immature Granulocyte Count (IG) includes promyelocytes, myelocytes and metamyelocytes but does not include bands. Percent differential counts (%) should be interpreted in the context of the absolute cell counts (cells/UL).Performed By: #### 24936-8 ####WIL HOLBROOK ([id number])[facility] ([place])[address] [place], [place] [address]Ikitbnwrwxq (Bld) [#/Vol]0.56 x10*3/uLLow1.20-4.80 [facility] CenterComment on above:Performed By: #### 20352-1 ####WIL HOLBROOK ([id number])[facility] ([place])[address] [place], [place] [address]Alieiazqcse/100 WBC (Bld)21.4 %Sdblef56.0-44.0 [facility] CenterComment on above:Performed By: #### 39138-4 ####WIL HOLBROOK ([id number])[facility] (ALEX)[address] [place], [place] [address]PZX (RBC) [Entitic mass]25.2 pgLow26.0-34.0 [facility] CenterComment on above:Performed By: #### 25103-2 ####WIL HOLBROOK ([id number])[facility] (ALEX)[address] [place], [place] [address]ZXXI (RBC) [Mass/Vol]29.7 g/dLLow32.0-36.0 [facility] CenterComment on above:Performed By: #### 20155-5 ####WIL HOLBROOK ([id number])[facility] ([facility])[address] [place], [place] [address]LIZ (RBC) [Entitic vol]85 dVYhcgnq24-133UlnphebwltCleveland Clinic Mercy HospitalComment on above:Performed By: #### 11713-7 ####WIL Villalobos'VANDANA ([id number])[facility] (ALEX)[address] [place], [place] [address]Gicbcnxnw (Bld) [#/Vol]0.37 x10*3/uLNormal0.10-1.00 [facility] CenterComment on above:Result Comment: Automated WBC differential has been confirmed by manual smear.Performed By: #### 35623-2 ####WIL HOLBROOK ([id number])[facility] (ALEX)[address] [place], [place] [address]Majlupfvf/100 WBC (Bld)14.1 %Normal2.0-10.0 [facility] CenterComment on above:Performed By: #### 21385-8 ####WIL Villalobos'VANDANA ([id number])[facility] ([facility]EX)[address] [place], [place] [address]Nnrbizdcqga (Bld) [#/Vol]1.48 x10*3/uLNormal 1.20-7.70UnCleveland Clinic Mercy HospitalComment on above:Result Comment: Percent differential counts (%) should be interpreted in the context of the absolute cell counts (cells/uL).Performed By: #### 26295-1 ####WIL HOLBROOK (995395)[facility] (ALEX)[address] [place], [place] [address]Olqqhytqlra/100 WBC (Bld)56.5 %Vpbilk73.0-80.0UnCleveland Clinic Mercy HospitalComment on above:Performed By: #### 22660-7 ####WIL HOLBROOK ([id number])[facility] (ALEX)[address] [place], [place] [address]Kwbpeiboc RBC/100 WBC (Bld) [Ratio]0.0 /100 WBCsNormal0.0-0.0UnCleveland Clinic Mercy HospitalComment on above:Performed By: #### 47853-5 ####WIL HOLBROOK (630805)[facility] (ALEX)[address] [place], [place] [address]Ghayfohqg (Bld) [#/Vol]39 x10*3/uLCritically mnn886-756 [facility] CenterComment on above:Performed By: #### 51813-6 ####WIL HOLBROOK ([id number])[facility] ([facility]EX)[address] [place] [address]QSS (Bld) [#/Vol]3.21 x10*6/uLLow4.00-5.20 [facility] CenterComment on above:Performed By: #### 49896-3 ####WIL HOLBROOK ([id number])[facility] (ALEX)[address] [place], [place] [address]APG (Bld) [#/Vol]2.6 x10*3/uLLow4.4-11.3UnCleveland Clinic Mercy HospitalComment on above:Performed By: #### 25001-9 ####WIL HOLBROOK ([id number])[facility] (ALEX)[address] [place], [place] [address]Sdrmtawgyyecg metabolic 2000 panelon 87-63-9761Jsdaarn BCP dye [Mass/Vol]3.2 g/dLLow3.4-5.0UnCleveland Clinic Mercy Hospital Comment on above:Performed By: #### 68275-0 ####WIL HOLBROOK ([id number])[facility] (ALEX)[address] [place], [place] [address]VUU [Catalytic activity/Vol]98 U/IZlngrq01-381WnbivwphysCleveland Clinic Mercy HospitalComment on above:Performed By: #### 76136-4 ####WIL HOLBROOK ([id number])[facility] (ALEX)[address] [place], [place] [address]MUH With P-5'-P [Catalytic activity/Vol]27 U/LNormal7-45UnCleveland Clinic Mercy HospitalComment on above:Result Comment: Patients treated with Sulfasalazine may generate falsely decreased results for ALT.Performed By: #### 84872-8 ####WIL HOLBROOK ([id number])[facility] (ALEX)[address] [place], [place] [address]Wkbjl gap [Moles/Vol]10 mmol/EWnwcgl02-46IuffmpfwxxCleveland Clinic Mercy HospitalComment on above:Performed By: #### 97432-4 ####WIL HOLBROOK ([id number])[facility] ([facility]EX)[address] [place], [place] [address]LVR With P-5'-P [Catalytic activity/Vol]38 U/LNormal9-39 [facility] CenterComment on above:Performed By: #### 30500-6 ####WIL HOLBROOK ([id number])[facility] (ALEX)[address] [place] [address]Wtwpchnor [Mass/Vol]1.0 mg/dLNormal0.0-1.2 [facility] CenterComment on above:Performed By: #### 92906-8 ####WIL HOLBROOK ([id number])[facility] (ALEX)[address] [place], [place] [address]Ykrnhvz [Mass/Vol]7.7 mg/dLLow8.6-10.3[facility] CenterComment on above:Performed By: #### 97348-6 ####WIL Villalobos'VANDANA ([id number])[facility] (ALEX)[address] [place], [place] [address]Fcnxkhco [Moles/Vol]108 mmol/KJkha27-173QuevhcfaklCleveland Clinic Mercy HospitalComment on above:Performed By: #### 10897-3 ####WIL O'VANDANA ([id number])[facility] (ALEX)[address] [place], [place] [address]ZI0 [Moles/Vol]26 mmol/BQzgoxa87-19PxwyybxspdSouthview Medical CenterComment on above:Performed By: #### 15867-1 ####WIL Villalobos'VANDANA ([id number])[facility] (ALEX)[address] [place], [place] [address]Rckywhkray [Mass/Vol]0.46 mg/dLLow0.50-1.05[facility] CenterComment on above:Performed By: #### 27482-4 ####WIL Villalobos'VANDANA (327134)[facility] (ALEX)[address] [place], [place] [address]HUS/1.73 sq M.predicted MDRD (S/P/Bld) [Vol rate/Area]mL/min/{1.73_m2} Normal>60UnCleveland Clinic Mercy HospitalComment on above:Result Comment: Calculations of estimated GFR are performed using the 2020 CKD-EPI Study Refit equation without the race variable for the IDMS-Traceable creatinine methods.https://jasn.asnjournals.org/content//ASN.9473302376 Performed By: #### 29482-3 ####WLI Villalobos'VANDANA ([id number])[facility] (ALEX)[address] [place], [place] [address]Thyndbd [Mass/Vol]97 mg/dLNormal 74-99[facility] CenterComment on above:Performed By: #### 05720-2 ####WIL O'VANDANA ([id number])[facility] (ALEX)[address] [place], [place] [address]Bmxowqfjo [Moles/Vol]3.9 mmol/LNormal 3.5-5.3[facility] CenterComment on above:Performed By: #### 75078-9 ####WIL O'VANDANA (823012)[facility] (ALEX)[address] [place], [place] [address]Qpmiuid [Mass/Vol]4.9 g/dLLow6.4-8.2 [facility] CenterComment on above:Performed By: #### 37998-6 ####WIL O'VANDANA ([id number])[facility] ([facility])[address] [place], [place] [address]Dytvav [Moles/Vol]140 mmol/XXieouq674-784DdfmubbyygCleveland Clinic Mercy HospitalComment on above:Performed By: #### 45408-5 ####WIL O'VANDANA ([id number])[facility] (ALEX)[address] [place], [place] [address]Xitp nitrogen [Mass/Vol]11 mg/dLNormal6-23[facility] CenterComment on above:Performed By: #### 91932-5 ####WIL O'VANDANA ([id number])[facility] (ALEX)[address] [place], [place] [address]XKF shape Nom (Bld)on 46-01-5116Pyvogkwwzx LM Ql (Bld)Few NormalUnCleveland Clinic Mercy HospitalComment on above:Performed By: #### 62935-0 ####WIL Villalobos'VANDANA ([id number])[facility] (ALEX)[address] [place], [place] [address]Injuq body LM Ql (Bld)PresentNormal [facility] CenterComment on above:Performed By: #### 32373-1 ####WIL Villalobos'VANDANA ([id number])[facility] (ALEX)[address] [place], [place] [address]Jlhnqnwajsf Ql (Bld)[facility] HospitalComment on above:Performed By: #### 22553-9 ####WIL Villalobos'VANDANA ([id number])[facility] (ALEX)[address] [place], [place] [address]Tlrcqoulxde.hypersegmented LM Ql (Bld)[facility] CenterComment on above:Performed By: #### 17084-1 ####WIL Villalobos'VANDANA (330803)[facility] ([facility])[address] [place], [place] [address]Oytgpasbtq LM Ql (Bld)[facility] DaytonComment on above:Performed By: #### 20972-3 ####WIL Villalobos'VANDANA ([id number])[facility] (ALEX)[address] [place] [address] Polychromasia LM Ql (Bld)[facility] Comment on above:Performed By: #### 74218-7 ####WIL Villalobos'VANDANA ([id number])[facility] (ALEX)[address] [place], [place] [address]KGO morphology finding Nom (Bld)See [facility] HospitalComment on above:Performed By: #### 47433-8 ####WIL Villalobos'VANDANA ([id number])[facility] (ALEX)[address] [place] [address] CBC W Auto Differential panel (Bld)on 39-82-7323Pgdbeminx (Bld) [#/Vol]0.00 x10*3/uLNormal0.00-0.10[facility] CenterComment on above:Result Comment: Automated WBC differential has been confirmed by manual smear.Performed By: #### 86486-0 ####WIL HOLBROOK ([id number])[facility] (ALEX)[address] [place], [place] [address]Ygygmbtej/100 WBC (Bld)0.0 % Normal0.0-2.0[facility] CenterComment on above: Performed By: #### 67125-0 ####WIL HOLBROOK (485437)[facility] ([facility]EX)[address] [place] [address]Fgdahohliiw (Bld) [#/Vol]0.03 x10*3/uLNormal0.00-0.70[facility] CenterComment on above:Performed By: #### 46475-8 ####WIL HOLBROOK ([id number])[facility] ([facility]EX)[address] [place], [place] [address]Szhkcyvfmfh/100 WBC (Bld)1.6 %Normal0.0-6.0[facility] CenterComment on above: Performed By: #### 45501-2 ####WIL HOLBROOK ([id number])[facility] (ALEX)[address] [place], [place] [address]Dqeskavotgm distribution width (RBC) [Ratio]18.0 %High11.5-14.5[facility] Comment on above:Performed By: #### 95389-5 ####WIL HOLBROOK ([id number])[facility] (ALEX)[address] [place], [place] [address]Xauqtaarai (Bld) [Volume fraction]27.9 %Low36.0-46.0[facility] CenterComment on above:Performed By: #### 82619-9 ####WIL HOLBROOK ([id number])[facility] ([facility]EX)[address] [place], [place] [address]Ihbtcnsgtp (Bld) [Mass/Vol]8.4 g/dLLow12.0-16.0UnCleveland Clinic Mercy HospitalComment on above:Performed By: #### 67255-5 ####WIL HOLBROOK ([id number])[facility] (ALEX)[address] [place], [place] [address]Uakcqiyp granulocytes (Bld) [#/Vol]0.04 x10*3/uLNormal0.00-0.70UnCleveland Clinic Mercy HospitalComment on above:Performed By: #### 60434-6 ####WIL HOLBROOK ([id number])[facility] (ALEX)[address] [place], [place] [address]Vdscdeve granulocytes/100 WBC (Bld)2.2 %High0.0-0.9UnCleveland Clinic Mercy HospitalComment on above:Result Comment: Immature Granulocyte Count (IG) includes promyelocytes, myelocytes and metamyelocytes but does not include bands. Percent differential counts (%) should be interpreted in the context of the absolute cell counts (cells/UL).Performed By: #### 38413-2 ####WIL HOLBROOK ([id number])[facility] (ALEX)[address] [place], [place] [address]Imuwyoomxwx (Bld) [#/Vol]0.40 x10*3/uLLow1.20-4.80 [facility] CenterComment on above:Performed By: #### 29521-7 ####WIL HOLBROOK (975513)[facility] (ALEX)[address] [place], [place] [address]Zfmxgnnhczj/100 WBC (Bld)21.6 %Adjwdj44.0-44.0 [facility] CenterComment on above:Performed By: #### 22819-6 ####WIL HOLBROOK (677163)[facility] (ALEX)[address] [place], [place] [address]BGM (RBC) [Entitic mass]25.1 pgLow26.0-34.0 [facility] CenterComment on above:Performed By: #### 84254-3 ####WIL HOLBROOK ([id number])[facility] (ALEX)[address] [place], [place] [address]YRUS (RBC) [Mass/Vol]30.1 g/dLLow32.0-36.0 [facility] CenterComment on above:Performed By: #### 34694-3 ####WIL Villalobos'VANDANA (741725)[facility] (ALEX)[address] [place], [place] [address]QIV (RBC) [Entitic vol]84 sRConwef69-249VxroqwcxxsCleveland Clinic Mercy HospitalComment on above:Performed By: #### 85383-9 ####WIL HOLBROOK ([id number])[facility] (ALEX)[address] [place], [place] [address]Sqmryhzmx (Bld) [#/Vol]0.17 x10*3/uLNormal0.10-1.00 [facility] CenterComment on above:Performed By: #### 21377-3 ####WIL HOLBROOK ([id number])[facility] ([facility])[address] [place], [place] [address]Gfgsaxcop/100 WBC (Bld)9.2 %Normal2.0-10.0 [facility] CenterComment on above:Performed By: #### 52829-2 ####WIL Villalobos'VANDANA (780237)[facility] ([facility]EX)[address] [place], [place] [address]Macasrtjmfl (Bld) [#/Vol]1.21 x10*3/uLNormal 1.20-7.70UnCleveland Clinic Mercy HospitalComment on above:Result Comment: Percent differential counts (%) should be interpreted in the context of the absolute cell counts (cells/uL).Performed By: #### 95449-4 ####WIL HOLBROOK (321948)[facility] ([facility]EX)[address] [place], [place] [address]Bsxdobmarck/100 WBC (Bld)65.4 %Gvratw96.0-80.0[facility] CenterComment on above:Performed By: #### 55244-8 ####WIL HOLBROOK (813075)[facility] ([facility])[address] [place], [place] [address]Dytkqphrw RBC/100 WBC (Bld) [Ratio]0.0 /100 WBCsNormal0.0-0.0[facility] CenterComment on above:Performed By: #### 89956-0 ####WIL HOLBROOK (644201)[facility] ([facility])[address] [place], [place] [address]Lshvcnlhu (Bld) [#/Vol]45 x10*3/yROwf282-628ZzqivdnhooCleveland Clinic Mercy HospitalComment on above:Performed By: #### 46014-2 ####WIL HOLBROOK ([id number])[facility] ([facility]EX)[address] [place], [place] [address]MAV (Bld) [#/Vol]3.34 x10*6/uLLow4.00-5.20UnCleveland Clinic Mercy HospitalComment on above:Performed By: #### 72317-4 ####WIL HOLBROOK ([id number])[facility] (ALEX)[address] [place] [address]FAW (Bld) [#/Vol]1.9 x10*3/uLLow4.4-11.3[facility] CenterComment on above:Performed By: #### 30871-8 ####WIL HOLBROOK ([id number])[facility] ([facility])[address] [place], [place] [address]Tohbdzokbcvmg metabolic 2000 panelon 41-63-5730Trkpsrg BCP dye [Mass/Vol]3.4 g/dLNormal3.4-5.0[facility] CenterComment on above:Performed By: #### 60423-0 ####WIL HOLBROOK (519647)[facility] ([facility]EX)[address] [place], [place] [address]PVV [Catalytic activity/Vol]102 U/KOlqsxp36-446LvspinlyttCleveland Clinic Mercy HospitalComment on above:Performed By: #### 27586-3 ####WIL HOLBROOK ([id number])[facility] (ALEX)[address] [place] [address] ALT With P-5'-P [Catalytic activity/Vol]17 U/LNormal7-45UnCleveland Clinic Mercy HospitalComment on above:Result Comment: Patients treated with Sulfasalazine may generate falsely decreased results for ALT.Performed By: #### 52461-7 ####WIL HOLBROOK ([id number])[facility] (ALEX)[address] [place], [place] [address]Qxxff gap [Moles/Vol]12 mmol/UOxigif48-80SwgetzookwCleveland Clinic Mercy HospitalComment on above:Performed By: #### 94204-5 ####WIL HOLBROOK (914812)[facility] (ALEX)[address] [place], [place] [address]GKC With P-5'-P [Catalytic activity/Vol]29 U/LNormal9-39 [facility] CenterComment on above:Performed By: #### 88453-3 ####WIL HOLBROOK ([id number])[facility] (ALEX)[address] [place], [place] [address]Rwaxhrbes [Mass/Vol]0.9 mg/dLNormal0.0-1.2 [facility] CenterComment on above:Performed By: #### 07182-0 ####WIL HOLBROOK ([id number])[facility] ([facility]EX)[address] [place], [place] [address]Nszhlcx [Mass/Vol]8.5 mg/dLLow8.6-10.3[facility] CenterComment on above:Performed By: #### 65137-9 ####WIL Villalobos'VANDANA (603062)[facility] (ALEX)[address] [place] [address]Mhybpyzk [Moles/Vol]108 mmol/FTvmk12-206SjxpnpzxiyCleveland Clinic Mercy HospitalComment on above:Performed By: #### 03560-3 ####WIL O'VANDANA (597493)[facility] (ALEX)[address] [place] [address]YR1 [Moles/Vol]25 mmol/VDbizks75-51LlvqyehvyyCleveland Clinic Mercy HospitalComment on above:Performed By: #### 70139-7 ####WIL Villalobos'VANDANA ([id number])[facility] ([facility]EX)[address] [place] [address]Bcdsvvociz [Mass/Vol]0.50 mg/dLNormal0.50-1.05UnCleveland Clinic Mercy HospitalComment on above:Performed By: #### 35273-7 ####WIL Villalobos'VANDANA ([id number])[facility] ([facility]EX)[address] [place], [place] [address]JRK/1.73 sq M.predicted MDRD (S/P/Bld) [Vol rate/Area]mL/min/{1.73_m2} Normal>60UnCleveland Clinic Mercy HospitalComment on above:Result Comment: Calculations of estimated GFR are performed using the 2020 CKD-EPI Study Refit equation without the race variable for the IDMS-Traceable creatinine methods.https://jasn.asnjournals.org/content/early/ASN.2003595432 Performed By: #### 08935-3 ####WIL Villalobos'VANDANA ([id number])[facility] ([facility]EX)[address] [place], [place] [address]Jdxfcqr [Mass/Vol]116 mg/dLHigh 74-99UnCleveland Clinic Mercy HospitalComment on above:Performed By: #### 16521-9 ####WIL HOLBROOK ([id number])[facility] ([facility])[address] [place] [address]Lupnlpqra [Moles/Vol]3.8 mmol/LNormal 3.5-5.3[facility] CenterComment on above:Performed By: #### 20327-2 ####WIL Villalobos'VANDANA ([id number])[facility] ([facility]EX)[address] [place] [address]Gxxywvp [Mass/Vol]5.5 g/dLLow6.4-8.2 [facility] CenterComment on above:Performed By: #### 63383-6 ####WIL Villalobos'VANDANA (293521)[facility] (ALEX)[address] [place] [address]Euzpzb [Moles/Vol]141 mmol/TIoyexi523-349StedvuryytCleveland Clinic Mercy HospitalComment on above:Performed By: #### 01745-9 ####WIL HOLBROOK ([id number])[facility] ([facility]EX)[address] [place], [place] [address]Vcfd nitrogen [Mass/Vol]11 mg/dLNormal6-23[facility] CenterComment on above:Performed By: #### 62747-2 ####WIL Villalobos'VANDANA ([id number])[facility] (ALEX)[address] [place], [place] [address]DGR shape Nom (Bld)on 19-79-5860Wlno cells LM Ql (Bld)Few MarshallUnCleveland Clinic Mercy HospitalComment on above:Performed By: #### 15678-9 ####WIL HOLBROOK ([id number])[facility] (ALEX)[address] [place], [place] [address]Tnvwodeobe LM Ql (Bld)Fewrmal [facility] Asif Medical CenterComment on above:Performed By: #### 24136-4 ####WIL Villalobos'VANDANA ([id number])[facility] ([facility])[address] [place], [place] [address]Xguuykeyjnd Ql (Bld)[facility] HospitalComment on above:Performed By: #### 49710-6 ####WIL Villalobos'VANDANA (497359)[facility] ([facility]EX)[address] [place] [address]Cdagtjoius LM Ql (Bld)[facility] DaytonComment on above:Performed By: #### 22946-7 ####WIL Villalobos'VANDANA ([id number])[facility] (ALEX)[address] [place] [address] Polychromasia LM Ql (Bld)[facility] Comment on above:Performed By: #### 80528-8 ####WIL Villalobos'VANDANA (777777)[facility] (ALEX)[address] [place] [address]DXJ morphology finding Nom (Bld)See [facility] HospitalComment on above:Performed By: #### 45258-4 ####WIL Villalobos'VANDANA ([id number])[facility] (ALEX)[address] [place] [address] Schistocytes LM Ql (Bld)[facility] Comment on above:Performed By: #### 89934-9 ####WIL Villalobos'VANDANA ([id number])[facility] ([facility])[address] [place] [address]APZ W Auto Differential panel (Bld)on 05-08-0134Lofxtseeb (Bld) [#/Vol]0.00 x10*3/uLNormal 0.00-0.10[facility] CenterComment on above:Result Comment: Automated WBC differential has been confirmed by manual smear.Performed By: #### 04224-9 ####WIL HOLBROOK ([id number])[facility] (ALEX)[address] [place] [address]Rigilrihb/100 WBC (Bld)0.0 %Normal 0.0-2.0[facility] CenterComment on above:Performed By: #### 91980-7 ####WIL Villalobos'VANDANA (760013)[facility] (ALEX)[address] [place] [address]Qnialsgdixd (Bld) [#/Vol]0.09 x10*3/uL Normal0.00-0.70[facility] CenterComment on above: Performed By: #### 77124-5 ####WIL HOLBROOK (614443)[facility] (ALEX)[address] [place], [place] [address]Rsfdmeckhzs/100 WBC (Bld)4.7 % Normal0.0-6.0[facility] CenterComment on above: Performed By: #### 79772-2 ####WIL HOLBROOK ([id number])[facility] (ALEX)[address] [place] [address]Wcprxpfudfp distribution width (RBC) [Ratio]17.7 %High11.5-14.5[facility] Comment on above:Performed By: #### 94521-1 ####WIL HOLBROOK ([id number])[facility] (ALEX)[address] [place] [address]Ncecnezkvb (Bld) [Volume fraction]28.1 %Low36.0-46.0[facility] CenterComment on above:Performed By: #### 00663-2 ####WIL HOLBROOK ([id number])[facility] (ALEX)[address] [place] [address]Ozlfkdcegk (Bld) [Mass/Vol]8.4 g/dLLow12.0-16.0UnCleveland Clinic Mercy HospitalComment on above:Performed By: #### 64982-2 ####WIL HOLBROOK ([id number])[facility] (ALEX)[address] [place] [address]Lmkxntmz granulocytes (Bld) [#/Vol]0.02 x10*3/uLNormal0.00-0.70UnCleveland Clinic Mercy HospitalComment on above:Performed By: #### 30281-6 ####WIL HOLBROOK (680345)[facility] (ALEX)[address] [place] [address]Uiohousk granulocytes/100 WBC (Bld)1.0 %High0.0-0.9UnCleveland Clinic Mercy HospitalComment on above:Result Comment: Immature Granulocyte Count (IG) includes promyelocytes, myelocytes and metamyelocytes but does not include bands. Percent differential counts (%) should be interpreted in the context of the absolute cell counts (cells/UL).Performed By: #### 45225-1 ####WIL HOLBROOK (436296)[facility] (ALEX)[address] [place] [address]Zpuaubkrtky (Bld) [#/Vol]0.59 x10*3/uLLow1.20-4.80 [facility] CenterComment on above:Performed By: #### 24386-7 ####WIL Villalobos'VANDANA ([id number])[facility] (ALEX)[address] [place] [address]Iqlzznvuanv/100 WBC (Bld)30.6 %Wnyklf45.0-44.0 [facility] CenterComment on above:Performed By: #### 00505-3 ####WIL Villalobos'VANDANA ([id number])[facility] ([facility])[address] [place], [place] [address]BRA (RBC) [Entitic mass]25.1 pgLow26.0-34.0 [facility] CenterComment on above:Performed By: #### 55236-7 ####WIL Villalobos'VANDANA ([id number])[facility] ([facility])[address] [place], [place] [address]ITQE (RBC) [Mass/Vol]29.9 g/dLLow32.0-36.0 [facility] CenterComment on above:Performed By: #### 43482-5 ####WIL Villalobos'VANDANA ([id number])[facility] ([facility])[address] [place], [place] [address]VOK (RBC) [Entitic vol]84 jNKapkif21-526JzciwqidqvSouthview Medical CenterComment on above:Performed By: #### 14747-6 ####WIL Villalobos'VANDANA ([id number])[facility] ([facility])[address] [place], [place] [address]Aaehfayjx (Bld) [#/Vol]0.31 x10*3/uLNormal0.10-1.00 [facility] CenterComment on above:Performed By: #### 17309-6 ####WIL Villalobos'VANDANA ([id number])[facility] ([facility])[address] [place], [place] [address]Jvivpmmqd/100 WBC (Bld)16.1 %Normal2.0-10.0 [facility] CenterComment on above:Performed By: #### 69106-4 ####WIL Villalobos'VANDANA ([id number])[facility] ([facility])[address] [place], [place] [address]Amrmcdctsiz (Bld) [#/Vol]0.92 x10*3/uLLow1.20-7.70 [facility] CenterComment on above:Result Comment: Percent differential counts (%) should be interpreted in the context of the absolute cell counts (cells/uL).Performed By: #### 65946-4 ####WIL HOLBROOK ([id number])[facility] ([facility])[address] [place] [address] Neutrophils/100 WBC (Bld)47.6 %Ftvrym59.0-80.0[facility] CenterComment on above:Performed By: #### 86923-1 ####WIL Villalobos'VANDANA ([id number])[facility] ([facility])[address] [place] [address] Nucleated RBC/100 WBC (Bld) [Ratio]0.0 /100 WBCsNormal0.0-0.0[facility] CenterComment on above:Performed By: #### 15361-5 ####WIL HOLBROOK ([id number])[facility] ([facility])[address] [place], [place] [address]Jdekavrvc (Bld) [#/Vol]44 x10*3/eZZqu335-001TreejicahbCleveland Clinic Mercy HospitalComment on above:Performed By: #### 36127-1 ####WIL HOLBROOK ([id number])[facility] ([facility])[address] [place], [place] [address]CDQ (Bld) [#/Vol]3.35 x10*6/uLLow4.00-5.20UnCleveland Clinic Mercy HospitalComment on above:Performed By: #### 70298-0 ####WIL Villalobos'VANDANA ([id number])[facility] ([facility])[address] [place], [place] [address]NQF (Bld) [#/Vol]1.9 x10*3/uLLow4.4-11.3[facility] CenterComment on above:Performed By: #### 00263-3 ####WIL Villalobos'VANDANA ([id number])[facility] ([facility])[address] [place], [place] [address]Kjfotgiryroyz metabolic 2000 panelon 31-87-7112Adrojvu BCP dye [Mass/Vol]3.3 g/dLLow3.4-5.0[facility] Comment on above:Performed By: #### 19879-6 ####WIL HOLBROOK ([id number])[facility] ([facility])[address] [place], [place] [address]ISE [Catalytic activity/Vol]103 U/QPqcbdm23-869PxhulyohcsCleveland Clinic Mercy HospitalComment on above:Performed By: #### 25077-8 ####WIL HOLBROOK ([id number])[facility] ([facility])[address] [place] [address] ALT With P-5'-P [Catalytic activity/Vol]22 U/LNormal7-45UnCleveland Clinic Mercy HospitalComment on above:Result Comment: Patients treated with Sulfasalazine may generate falsely decreased results for ALT.Performed By: #### 44393-4 ####WIL HOLBROOK ([id number])[facility] ([facility])[address] [place], [place] [address]Brnmq gap [Moles/Vol]11 mmol/FCkytax26-56RnwqmcsyraCleveland Clinic Mercy HospitalComment on above:Performed By: #### 83703-1 ####WIL HOLBROOK ([id number])[facility] ([facility]EX)[address] [place], [place] [address]VGG With P-5'-P [Catalytic activity/Vol]32 U/LNormal9-39 [facility] CenterComment on above:Performed By: #### 19732-7 ####WIL HOLBROOK ([id number])[facility] ([facility])[address] [place], [place] [address]Lmupwlupl [Mass/Vol]1.0 mg/dLNormal0.0-1.2 [facility] CenterComment on above:Performed By: #### 18421-7 ####WIL HOLBROOK ([id number])[facility] ([facility])[address] [place], [place] [address]Mmufxfb [Mass/Vol]8.4 mg/dLLow8.6-10.3[facility] CenterComment on above:Performed By: #### 26855-0 ####WIL Villalobos'VANDANA ([id number])[facility] ([facility])[address] [place], [place] [address]Remfuybw [Moles/Vol]107 mmol/HQuhiuk08-264RdrptwmvonCleveland Clinic Mercy HospitalComment on above:Performed By: #### 58734-2 ####WIL Villalobos'VANDANA ([id number])[facility] ([facility])[address], [place] [address]CF7 [Moles/Vol]27 mmol/URxzzjg35-87UjbdztmmenCleveland Clinic Mercy HospitalComment on above:Performed By: #### 06987-6 ####WIL Villalobos'VANDANA ([id number])[facility] ([facility])[address] [place], [place] [address]Ownrkjwutm [Mass/Vol]0.50 mg/dLNormal0.50-1.05UnCleveland Clinic Mercy HospitalComment on above:Performed By: #### 04135-8 ####WIL Villalobos'VANDANA ([id number])[facility] ([facility])[address] [place], [place] [address]VZI/1.73 sq M.predicted MDRD (S/P/Bld) [Vol rate/Area]mL/min/{1.73_m2} Normal>60UnCleveland Clinic Mercy HospitalComment on above:Result Comment: Calculations of estimated GFR are performed using the 2020 CKD-EPI Study Refit equation without the race variable for the IDMS-Traceable creatinine methods.https://jasn.asnjournals.org/content/early/ASN.6991354726 Performed By: #### 70736-1 ####WIL Villalobos'VANDANA ([id number])[facility] ([facility])[address] [place], [place] [address]Wcofxfv [Mass/Vol]113 mg/dLHigh 74-99UnCleveland Clinic Mercy HospitalComment on above:Performed By: #### 95620-3 ####WIL Villalobos'VANDANA ([id number])[facility] ([facility])[address] [place], [place] [address]Fmanvlvqz [Moles/Vol]3.9 mmol/LNormal 3.5-5.3UnCleveland Clinic Mercy HospitalComment on above:Performed By: #### 47325-4 ####WIL Villalobos'VANDANA ([id number])[facility] ([facility])[address] [place], [place] [address]Fvdsmnc [Mass/Vol]5.2 g/dLLow6.4-8.2 [facility] CenterComment on above:Performed By: #### 78071-7 ####WIL Villalobos'VANDANA ([id number])[facility] ([facility])[address] [place], [place] [address]Iauezz [Moles/Vol]141 mmol/OJuogkd325-703NnkyvqihnfSouthview Medical CenterComment on above:Performed By: #### 41054-9 ####WIL Villalobos'VANDANA ([id number])[facility] ([facility])[address] [place], [place] [address]Wwsv nitrogen [Mass/Vol]11 mg/dLNormal6-23[facility] CenterComment on above:Performed By: #### 94740-5 ####WIL Villalobos'VANDANA ([id number])[facility] ([facility])[address], [place] [address]TBQSUTMTUDXXDBF (IGG, IGA, IGM)on 19-87-0274OaR [Mass/Vol] mg/sTXju62-014OdsotegdxfSouthview Medical CenterComment on above: Order Comment: MONOCLONAL PROTEINS MAY CAUSE FALSELY LOWRESULTS IN THIS ASSAY. SERUM PROTEINELECTROPHORESIS SHOULD BE DONE THEFIRST TEST TO EVALUATE MONOCLONAL GAMMOPATHY.Performed By: #### IGS ####ARNULFO Roger ([id number])[facility] ([facility])[address] [place], [place] [address]JvF [Mass/Vol]678 mg/sRIpf523-9414PbqshjnlhrCleveland Clinic Mercy HospitalComment on above: Order Comment: MONOCLONAL PROTEINS MAY CAUSE FALSELY LOWRESULTS IN THIS ASSAY. SERUM PROTEINELECTROPHORESIS SHOULD BE DONE THEFIRST TEST TO EVALUATE MONOCLONAL GAMMOPATHY.Performed By: #### IGS ####ARNULFO Roger ([id number])[facility] ([facility])[address] [place], [place] [address]NiP [Mass/Vol]mg/dL Vji35-367NjrfondnzhSouthview Medical CenterComment on above:Order Comment: MONOCLONAL PROTEINS MAY CAUSE FALSELY LOWRESULTS IN THIS ASSAY. SERUM PROTEINELECTROPHORESIS SHOULD BE DONE THEFIRST TEST TO EVALUATE MONOCLONAL GAMMOPATHY.Performed By: #### IGS ####ARNULFO Roger ([id number])[facility] ([facility])[address] [place] [address]Iilawliturndsp light chains.free panel (S)on 55-70-4763Vetwjovvaiizer light chains.kappa [Mass/Vol]<0.08Low 0.33-1.94[facility] Medical CenterComment on above:Order Comment: Undetected antigen [...] be discussedwith the testing laboratory.Performed By: #### 62783-6 ####ARNULFO Roger ([id number])[facility] ([facility])[address] [place] [address]Qefzknqurnifop light chains.kappa/Immunoglobulin light chains.lambda (S) [Mass ratio]Normal [facility] Medical CenterComment on above:Order Comment: Undetected antigen [...] measurement range.Calculation cannot be performed.Performed By: #### 98212-0 ####ARNULFO Roger ([id number])[facility] ([facility])[address] [place] [address]Afeeyaurembcpa light chains.lambda [Mass/Vol]<0.17Low 0.57-2.63UnCleveland Clinic Mercy HospitalComment on above:Order Comment: Undetected antigen excess [...] be discussedwith the testing laboratory.Performed By: #### 27245-8 ####ARNULFO Roger ([id number])[facility] ([facility])[address] [place] [address]Tgqlesfjs 02-16-2024 Protein [Mass/Vol]5.0 g/dLLow6.4-8.2UnCleveland Clinic Mercy HospitalComment on above:Performed By: #### 2885-2 ####ARNULFO Roger ([id number])[facility] ([facility])[address] [place] [address]Apywnca electrophoresis panelon 17-72-0202Msiprug [Mass/Vol]2.9 g/dLLow3.4-5.0UnCleveland Clinic Mercy HospitalComment on above:Performed By: #### 80172-3 ####ARNULFO Roger ([id number])[facility] ([facility])[address] [place] [address]ECYPZ 1 GLOBULIN0.3 g/dLNormal0.2-0.6[facility] CenterComment on above:Performed By: #### 17202-0 ####ARNULFO Roger ([id number])[facility] ([facility])[address] [place], [place] [address]JFFQT 2 GLOBULIN0.6 g/dLNormal0.4-1.1[facility] Comment on above:Performed By: #### 55458-2 ####ARNULFO Roger ([id number])[facility] ([facility])[address] [place], [place] [address]CADX GLOBULIN0.6 g/dLNormal0.5-1.2[facility] CenterComment on above: Performed By: #### 34014-2 ####ARNULFO Roger ([id number])[facility] ([facility])[address] [place] [address]WBPTP GLOBULIN0.6 g/dLNormal0.5-1.4[facility] Medical CenterComment on above:Performed By: #### 99849-8 ####ARNULFO Roger ([id number])[facility] ([facility])[address] [place] [address]FZXD REVIEW-SERUM PROTEIN ELECTROPHORESISReviewed and approved by CASS FREEDMAN on 02/19/24 at 10:46 AM.[facility] Health CenterComment on above:Performed By: #### 04841-8 ####ARNULFO Roger ([id number])[facility] ([facility])[address] [place] [address]FTENUQQ ELECTROPHORESIS COMMENTHypoalbuminemia.[facility] Health CenterComment on above:Performed By: #### 96741-9 ####ARNULFO Roger ([id number])[facility] ([facility])[address] [place] [address]ONV shape Nom (Bld)on 06-23-9332Egudyntott LM Ql (Bld)[facility] DaytonComment on above:Performed By: #### 16718-1 ####WIL Villalobos'VANDANA ([id number])[facility] ([facility])[address], [place] [address]Qajnzeenxq LM Ql (Bld)[facility] DaytonComment on above:Performed By: #### 95092-8 ####WIL Villalobos'VANDANA ([id number])[facility] ([facility]EX)[address] [place] [address] Polychromasia LM Ql (Bld)[facility] Comment on above:Performed By: #### 22164-8 ####WIL Villalobos'VANDANA ([id number])[facility] ([facility]EX)[address], [place] [address]FCB morphology finding Nom (Bld)See [facility] HospitalComment on above:Performed By: #### 14133-7 ####WIL Villalobos'VANDANA ([id number])[facility] ([facility])[address] [place] [address] Schistocytes LM Ql (Bld)[facility] Comment on above:Performed By: #### 86529-6 ####WIL Villalobos'VANDANA ([id number])[facility] ([facility])[address] [place], [place] [address]IGC W Auto Differential panel (Bld)on 78-77-6155Ianuzmvmc (Bld) [#/Vol]0.00 x10*3/uLNormal 0.00-0.10[facility] CenterComment on above:Performed By: #### 91818-5 ####WIL Villalobos'VANDANA ([id number])[facility] ([facility])[address] [place], [place] [address]Bqnjllxyr/100 WBC (Bld)0.0 %Normal 0.0-2.0UnCleveland Clinic Mercy HospitalComment on above:Performed By: #### 13845-0 ####WIL HOLBROOK ([id number])[facility] ([facility])[address] [place], [place] [address]Zdttguruzxl (Bld) [#/Vol]0.09 x10*3/uL Normal0.00-0.70[facility] CenterComment on above: Performed By: #### 06804-1 ####WIL HOLBROOK ([id number])[facility] ([facility]EX)[address] [place], [place] [address]Zhhbwplhiho/100 WBC (Bld)4.4 % Normal0.0-6.0[facility] CenterComment on above: Performed By: #### 33378-8 ####WIL HOLBROOK ([id number])[facility] ([facility])[address] [place], [place] [address]Naqdeujptwu distribution width (RBC) [Ratio]17.5 %High11.5-14.5[facility] Comment on above:Performed By: #### 70404-6 ####WIL HOLBROOK ([id number])[facility] ([facility])[address] [place], [place] [address]Isawwggthy (Bld) [Volume fraction]27.5 %Low36.0-46.0UnCleveland Clinic Mercy HospitalComment on above:Performed By: #### 88202-9 ####WIL HOLBROOK ([id number])[facility] ([facility])[address] [place], [place] [address]Dirtyamumn (Bld) [Mass/Vol]8.4 g/dLLow12.0-16.0[facility] CenterComment on above:Performed By: #### 72998-1 ####WIL HOLBROOK ([id number])[facility] ([facility])[address] [place], [place] [address]Btykcbyc granulocytes (Bld) [#/Vol]0.01 x10*3/uLNormal0.00-0.70UnCleveland Clinic Mercy HospitalComment on above:Performed By: #### 15023-6 ####WIL HOLBROOK (564324)[facility] ([facility])[address] [place], [place] [address]Vdesqgvq granulocytes/100 WBC (Bld)0.5 %Normal0.0-0.9UnCleveland Clinic Mercy HospitalComment on above:Result Comment: Immature Granulocyte Count (IG) includes promyelocytes, myelocytes and metamyelocytes but does not include bands. Percent differential counts (%) should be interpreted in the context of the absolute cell counts (cells/UL).Performed By: #### 19165-0 ####WIL HOLBROOK ([id number])[facility] ([facility]EX)[address] [place], [place] [address]Leopxvalxvt (Bld) [#/Vol]0.56 x10*3/uLLow1.20-4.80 [facility] CenterComment on above:Performed By: #### 40516-5 ####WIL HOLBROOK ([id number])[facility] ([facility]EX)[address] [place], [place] [address]Nnyxterbycp/100 WBC (Bld)27.2 %Yidwxw25.0-44.0 [facility] CenterComment on above:Performed By: #### 21946-2 ####WIL HOLBROOK ([id number])[facility] ([facility]EX)[address] [place], [place] [address]EAO (RBC) [Entitic mass]26.0 mrMynjva33.0-34.0 [facility] CenterComment on above:Performed By: #### 77874-1 ####WIL HOLBROOK (575726)[facility] ([facility])[address] [place], [place] [address]YVWI (RBC) [Mass/Vol]30.5 g/dLLow32.0-36.0 [facility] CenterComment on above:Performed By: #### 93645-9 ####WIL HOLBROOK (554649)[facility] ([facility])[address] [place], [place] [address]COJ (RBC) [Entitic vol]85 bRCvcwou79-691UwbdibrqppCleveland Clinic Mercy HospitalComment on above:Performed By: #### 94876-0 ####WIL HOLBROOK ([id number])[facility] ([facility])[address] [place], [place] [address]Icjevuwgc (Bld) [#/Vol]0.35 x10*3/uLNormal0.10-1.00 [facility] CenterComment on above:Performed By: #### 34994-2 ####WIL HOLBROOK (739268)[facility] ([facility])[address] [place], [place] [address]Wuoygloay/100 WBC (Bld)17.0 %Normal2.0-10.0 [facility] CenterComment on above:Performed By: #### 20342-3 ####WIL HOLBROOK (648058)[facility] ([facility])[address] [place], [place] [address]Lfjtspmfsmb (Bld) [#/Vol]1.05 x10*3/uLLow1.20-7.70 [facility] CenterComment on above:Result Comment: Percent differential counts (%) should be interpreted in the context of the absolute cell counts (cells/uL).Performed By: #### 52294-2 ####WIL HOLBROOK ([id number])[facility] ([facility])[address] [place] [address] Neutrophils/100 WBC (Bld)50.9 %Qkxipz21.0-80.0UnCleveland Clinic Mercy HospitalComment on above:Performed By: #### 00805-3 ####WIL HOLBROOK ([id number])[facility] ([facility])[address] [place] [address] Nucleated RBC/100 WBC (Bld) [Ratio]0.0 /100 WBCsNormal0.0-0.0[facility] CenterComment on above:Performed By: #### 02466-1 ####WIL HOLBROOK (475167)[facility] ([facility])[address] [place], [place] [address]Xmqhpmluy (Bld) [#/Vol]43 x10*3/kBUdm583-653FyeszqxdypCleveland Clinic Mercy HospitalComment on above:Performed By: #### 46751-4 ####WIL HOLBROOK (443966)[facility] ([facility])[address] [place], [place] [address]IRY (Bld) [#/Vol]3.23 x10*6/uLLow4.00-5.20UnCleveland Clinic Mercy HospitalComment on above:Performed By: #### 60474-1 ####WIL HOLBROOK ([id number])[facility] ([facility]EX)[address] [place], [place] [address]ZME (Bld) [#/Vol]2.1 x10*3/uLLow4.4-11.3[facility] CenterComment on above:Performed By: #### 09739-1 ####WIL HOLBROOK ([id number])[facility] ([facility])[address] [place], [place] [address]Sseuxid [Mass/volume] in Serum or PlasmaOrdered By: Fabiola Marinelli on 65-04-6190Mozghpn [Mass/Vol]8.3 mg/dLLow8.6-10.3FOhioHealth Arthur G.H. Bing, MD, Cancer CenterCalcium [Mass/Vol]Calcium [Mass/volume] in Serum or PlasmaLow 8.6-10.3FOhioHealth Arthur G.H. Bing, MD, Cancer CenterCreatinine [Mass/volume] in Serum or PlasmaOrdered By: Fabiola Marinelli on 89-59-2757Fdbkylgjmd [Mass/Vol]0.49 mg/dLLow 0.60-1.20[facility] For RehabilitationCreatinine [Mass/Vol]Creatinine [Mass/volume] in Serum or PlasmaLow0.60-1.20[facility] For RehabilitationNo Panel InformationOrdered By: Fabiola Marinelli on 31-57-8265Lofypnqpm GFR (CKD-EPI)> 60.0 mL/MinChildren'S Hospital For RehabilitationPharmacy Creatinine Clearance (Chem 65.72[facility]> 60.0 mL/MinChildren'S Hospital For Rehabilitation65.72[facility] For RehabilitationUrea nitrogen [Mass/volume] in Serum or PlasmaOrdered By: Fabiola Marinelli on 91-73-1262Evyt nitrogen [Mass/Vol]11 mg/dL 05-26[facility] For RehabilitationUrea nitrogen [Mass/Vol]Urea nitrogen [Mass/volume] in Serum or Plasma05-26[facility] For RehabilitationAerobic cultureOrdered By: Fabiola Marinelli on 70-78-6442Zqbthfay identified Aer cx Nom (Unsp spec)Aerobic cultureChildren'S Hospital For RehabilitationBacteria identified Aer cx Nom (Unsp spec)Aerobic cultureChildren'S Hospital For RehabilitationBacteria identified Aer cx Nom (Unsp spec)[facility] For RehabilitationCryptococcus antigen levelOrdered By: Fabiola Marinelli on 28-22-4245Omhzwprtaiog sp Ag LA Ql (S) NegativeNegativeChildren'S Hospital For RehabilitationComment on above:Performed at: - Lab[address] [id number] Director: Maxine Briones MD, Phone: [phone] sp Ag LA Ql (S)Cryptococcus antigen levelNegativeChildren'S Hospital For RehabilitationGram stain for investigation of transfusion reactionOrdered By: Fabiola Marinelli on 01-21-2024 Microscopic observation Gram stain Nom (Unsp spec)[facility] Hospital For RehabilitationGram stain microscopyOrdered By: Fabiola Marinelli on 99-93-5880Unemepoeajb observation Gram stain Nom (Unsp spec)Gram stain microscopyChildren'S Hospital For RehabilitationMicroscopic observation Gram stain Nom (Unsp spec)Gram stain microscopyChildren'S Hospital For RehabilitationNo Panel InformationOrdered By: Fabiola Marinelli on 01-21-2024U Histoplasma Galactomannan AntigenNegative<0.5 ng/mL [facility] For RehabilitationComment on above:This test was developed and its performance characteristicsdetermined by [facility]. It has not been cleared orapproved by the Food and Drug Administration.Performed at: [address] [place] [address] [employer] [address] [place] [address], [place] [id number] Director: Mojgan Sommers MD, Phone: [phone]<0.5 ng/mLChildren'S Hospital For Rehabilitation Miscellaneous TestSee [facility] Lorain HospitalComment on above: See report. Scanned copy available in EMR.See [facility] W Auto Differential panel (Bld)on 60-07-3021Joivzjvmf (Bld) [#/Vol] 0.00 x10*3/uLNormal0.00-0.10[facility] CenterComment on above:Performed By: #### 38457-2 ####WIL HOLBROOK ([id number])[facility] ([facility])[address] [place], [place] [address]Tnvhkypea/100 WBC (Bld)0.0 %Normal0.0-2.0UnCleveland Clinic Mercy HospitalComment on above:Performed By: #### 95007-1 ####WIL HOLBROOK ([id number])[facility] ([facility]EX)[address] [place], [place] [address]Qfmpccqvzhq (Bld) [#/Vol] 0.08 x10*3/uLNormal0.00-0.70UnCleveland Clinic Mercy HospitalComment on above:Performed By: #### 39752-2 ####WIL Villalobos'VANDANA (666561)[facility] ([facility]EX)[address] [place], [place] [address]Juveqoatdyv/100 WBC (Bld)2.4 %Normal0.0-6.0UnCleveland Clinic Mercy HospitalComment on above:Performed By: #### 45033-3 ####WIL Villalobos'VANDANA (024460)[facility] (ALEX)[address] [place], [place] [address]Hnqxiqrnxcb distribution width (RBC) [Ratio]17.6 %High11.5-14.5UnCleveland Clinic Mercy HospitalComment on above:Performed By: #### 97101-6 ####WIL HOLBROOK ([id number])[facility] ([facility]EX)[address] [place] [address]Cbkmoxebds (Bld) [Volume fraction]30.7 %Low36.0-46.0UnCleveland Clinic Mercy HospitalComment on above:Performed By: #### 71486-7 ####WIL HOLBROOK ([id number])[facility] ([facility]EX)[address] [place] [address]Ewwuwjiplx (Bld) [Mass/Vol]9.4 g/dLLow12.0-16.0UnCleveland Clinic Mercy HospitalComment on above:Performed By: #### 33843-2 ####WIL HOLBROOK ([id number])[facility] ([facility])[address] [place], [place] [address]Vyjqgrba granulocytes (Bld) [#/Vol]0.05 x10*3/uLNormal0.00-0.70UnCleveland Clinic Mercy HospitalComment on above:Performed By: #### 53411-1 ####WIL HOLBROOK (635783)[facility] ([facility]EX)[address] [place] [address]Ewvxpcgr granulocytes/100 WBC (Bld)1.5 %High0.0-0.9UnCleveland Clinic Mercy HospitalComment on above:Result Comment: Immature Granulocyte Count (IG) includes promyelocytes, myelocytes and metamyelocytes but does not include bands. Percent differential counts (%) should be interpreted in the context of the absolute cell counts (cells/UL).Performed By: #### 61954-5 ####WIL HOLBROOK ([id number])[facility] ([facility])[address] [place] [address]Wddhxsrqyyb (Bld) [#/Vol]0.65 x10*3/uLLow1.20-4.80 [facility] CenterComment on above:Performed By: #### 96913-0 ####WIL Villalobos'VANDANA (597756)[facility] ([facility])[address] [place] [address]Pmjlalqvzvw/100 WBC (Bld)19.2 %Qtrmky41.0-44.0 [facility] CenterComment on above:Performed By: #### 97240-4 ####WIL Villalobos'VANDANA (772152)[facility] ([facility])[address] [place], [place] [address]AHA (RBC) [Entitic mass]25.8 pgLow26.0-34.0 [facility] CenterComment on above:Performed By: #### 60923-3 ####WIL Villalobos'VANDANA ([id number])[facility] ([facility]EX)[address] [place], [place] [address]PQPW (RBC) [Mass/Vol]30.6 g/dLLow32.0-36.0 [facility] CenterComment on above:Performed By: #### 31421-0 ####WIL Villalobos'VANDANA ([id number])[facility] ([facility])[address] [place], [place] [address]TLY (RBC) [Entitic vol]84 tHSwnitf00-138InfojwxndgCleveland Clinic Mercy HospitalComment on above:Performed By: #### 75569-9 ####WIL Villalobos'VANDANA ([id number])[facility] ([facility])[address] [place] [address]Ielsmlevo (Bld) [#/Vol]0.50 x10*3/uLNormal0.10-1.00 [facility] CenterComment on above:Performed By: #### 49022-8 ####WIL Villalobos'VANDANA ([id number])[facility] ([facility])[address] [place] [address]Dvhkzjguz/100 WBC (Bld)14.8 %Normal2.0-10.0 [facility] CenterComment on above:Performed By: #### 82105-1 ####WIL HOLBROOK ([id number])[facility] ([facility])[address] [place] [address]Zobthbjhbvx (Bld) [#/Vol]2.10 x10*3/uLNormal 1.20-7.70UnCleveland Clinic Mercy HospitalComment on above:Result Comment: Percent differential counts (%) should be interpreted in the context of the absolute cell counts (cells/uL).Performed By: #### 15223-2 ####WIL HOLBROOK ([id number])[facility] ([facility]EX)[address] [place] [address]Cytgmzlvrll/100 WBC (Bld)62.1 %Aykrje99.0-80.0UnCleveland Clinic Mercy HospitalComment on above:Performed By: #### 70049-0 ####WIL HOLBROOK ([id number])[facility] ([facility])[address] [place] [address]Zwpiccynq RBC/100 WBC (Bld) [Ratio]0.0 /100 WBCsNormal0.0-0.0[facility] CenterComment on above:Performed By: #### 53108-9 ####WIL HOLBROOK ([id number])[facility] ([facility])[address] [place] [address]Jfabuaxct (Bld) [#/Vol]50 x10*3/vBMau316-599UlmongbmdtCleveland Clinic Mercy HospitalComment on above:Performed By: #### 04117-2 ####WIL Villalobos'VANDANA (555952)[facility] ([facility])[address] [place], [place] [address]VCQ (Bld) [#/Vol]3.65 x10*6/uLLow4.00-5.20[facility] CenterComment on above:Performed By: #### 41272-3 ####WIL HOLBROOK ([id number])[facility] ([facility])[address] [place], [place] [address]KZZ (Bld) [#/Vol]3.4 x10*3/uLLow4.4-11.3[facility] CenterComment on above:Performed By: #### 41125-6 ####WIL HOLBROOK ([id number])[facility] (ALEX)[address] [place], [place] [address]KPJ W Auto Differential panel (Bld)on 70-75-6120Nukopkufp (Bld) [#/Vol]0.01 x10*3/uLNormal0.00-0.10[facility] CenterComment on above:Performed By: #### [id number] ####WIL HOLBROOK ([id number])[facility] (ALEX)[address] [place] [address] Basophils/100 WBC (Bld)0.3 %Normal0.0-2.0[facility] CenterComment on above:Performed By: #### 57960-3 ####WIL HOLBROOK ([id number])[facility] (ALEX)[address] [place], [place] [address]Ulbrxmwyrki (Bld) [#/Vol]0.12 x10*3/uLNormal0.00-0.70[facility] CenterComment on above:Performed By: #### 96500-8 ####WIL HOLBROOK ([id number])[facility] (ALEX)[address] [place] [address] Eosinophils/100 WBC (Bld)3.4 %Normal0.0-6.0UnCleveland Clinic Mercy HospitalComment on above:Performed By: #### 67102-8 ####WIL HOLBROOK ([id number])[facility] (ALEX)[address] [place] [address] Erythrocyte distribution width (RBC) [Ratio]17.4 %High11.5-14.5UnCleveland Clinic Mercy HospitalComment on above:Performed By: #### 93115-9 ####WIL Villalobos'VANDANA ([id number])[facility] (ALEX)[address] [place], [place] [address]Jjvkrhaxho (Bld) [Volume fraction]30.2 %Low36.0-46.0 [facility] CenterComment on above:Performed By: #### 74203-4 ####WIL Villalobos'VANDANA ([id number])[facility] (ALEX)[address] [place], [place] [address]Kvpayqhsrb (Bld) [Mass/Vol]9.2 g/dLLow12.0-16.0 [facility] CenterComment on above:Performed By: #### 37372-0 ####WIL HOLBROOK ([id number])[facility] (ALEX)[address] [place], [place] [address]Acowmanq granulocytes (Bld) [#/Vol]0.02 x10*3/uL Normal0.00-0.70UnCleveland Clinic Mercy HospitalComment on above: Performed By: #### 00350-0 ####WIL Villalobos'VANDANA ([id number])[facility] (ALEX)[address] [place], [place] [address]Zhsrvrcl granulocytes/100 WBC (Bld) 0.6 %Normal0.0-0.9UnCleveland Clinic Mercy HospitalComment on above: Result Comment: Immature Granulocyte Count (IG) includes promyelocytes, myelocytes and metamyelocytes but does not include bands. Percent differential counts (%) should be interpreted in the context of the absolute cell counts (cells/UL).Performed By: #### 18120-9 ####WIL HOLBROOK ([id number])[facility] ([place]EX)[address] [place], [place] [address]Ydhqxtbrwaw (Bld) [#/Vol]0.62 x10*3/uLLow1.20-4.80[facility] Comment on above:Performed By: #### 73732-2 ####WIL HOLBROOK ([id number])[facility] [facility] (ALEX)[address] [place] [address] Lymphocytes/100 WBC (Bld)17.8 %Suyfib93.0-44.0[facility] Medical CenterComment on above:Performed By: #### 41838-3 ####WIL HOLBROOK ([id number])[facility] (ALEX)[address] [place] [address] MCH (RBC) [Entitic mass]25.9 pgLow26.0-34.0UnCleveland Clinic Mercy HospitalComment on above:Performed By: #### 96342-0 ####WIL HOLBROOK ([id number])[facility] (ALEX)[address] [place] [address] MCHC (RBC) [Mass/Vol]30.5 g/dLLow32.0-36.0UnCleveland Clinic Mercy HospitalComment on above:Performed By: #### 49050-7 ####WIL HOLBROOK ([id number])[facility] (ALEX)[address] [place] [address] MCV (RBC) [Entitic vol]85 cHTqywkl62-448UujinzfybfSouthview Medical CenterComment on above:Performed By: #### 21324-8 ####WIL HOLBROOK ([id number])[facility] (ALEX)[address] [place], [place] [address]Idkonedls (Bld) [#/Vol]0.45 x10*3/uLNormal0.10-1.00[facility] Medical CenterComment on above:Performed By: #### 88535-7 ####WIL HOLBROOK ([id number])[facility] (ALEX)[address] [place] [address] Monocytes/100 WBC (Bld)12.9 %Normal2.0-10.0UnCleveland Clinic Mercy HospitalComment on above:Performed By: #### 84159-0 ####WIL HOLBROOK ([id number])[facility] (ALEX)[address] [place] [address] Neutrophils (Bld) [#/Vol]2.27 x10*3/uLNormal1.20-7.70[facility] Medical CenterComment on above:Result Comment: Percent differential counts (%) should be interpreted in the context of the absolute cell counts (cells/uL).Performed By: #### 06479-4 ####WIL HOLBROOK ([id number])[facility] (ALEX)[address] [place], [place] [address]Kgrkzqooeve/100 WBC (Bld)65.0 %Lvxdlv31.0-80.0[facility] Medical CenterComment on above:Performed By: #### 01453-3 ####WIL HOLBROOK ([id number])[facility] (ALEX)[address] [place], [place] [address]Cpppompay RBC/100 WBC (Bld) [Ratio]0.0 /100 WBCsNormal0.0-0.0[facility] Medical CenterComment on above:Performed By: #### 57287-8 ####WIL Villalobos'VANDANA ([id number])[facility] (ALEX)[address] [place], [place] [address]Ekmopfxai (Bld) [#/Vol]53 x10*3/pYVmy147-807ArybgwrwbrCleveland Clinic Mercy Hospital Comment on above:Performed By: #### 27384-4 ####WIL HOLBROOK ([id number])[facility] (ALEX)[address] [facility] [facility] [address]LIZ (Bld) [#/Vol]3.55 x10*6/uLLow4.00-5.20[facility] Comment on above:Performed By: #### 68420-5 ####WIL HOLBROOK ([id number])[facility] (ALEX)[address] [facility] [place] [address]PLE (Bld) [#/Vol]3.5 x10*3/uLLow4.4-11.3[facility] Comment on above:Performed By: #### 66903-1 ####WIL HOLBROOK ([id number])[facility] (ALEX)[address] [place] [address] Immunoglobulin light chains.free panel (S)Ordered By: Nava Carr on 12-30-2023 Immunoglobulin light chains.kappa [Mass/Vol]mg/dLLow0.33 - 1.94 mg/dLUnTrinity Health System Twin City Medical CenterImmunoglobulin light chains.kappa/Immunoglobulin light chains.lambda (S) [Mass ratio][facility] HospitalComment on above: One or more analytes used in this calculation is outside of the analytical measurement range. Calculation cannot be performed. Immunoglobulin light chains.lambda [Mass/Vol]mg/dLLow0.57 - 2.63 mg/dLUnTrinity Health System Twin City Medical CenterInterpretation and review of laboratory resultsAbnormal [facility] HospitalUndetected antigen excess is a rare event but [...] be discussed with the testing laboratory.[facility] DaytonCB W Auto Differential panel (Bld)on 42-66-9777Rxokbbdtg (Bld) [#/Vol]0.00 10*3/uLUnTrinity Health System Twin City Medical CenterBasophils/100 WBC (Bld)0.0 %0.0 - 2.0 %[facility] HospitalEosinophils (Bld) [#/Vol] 0.07 10*3/uLChillicothe HospitalEosinophils/100 WBC (Bld)2.7 %0.0 - 6.0 %[facility] HospitalErythrocyte distribution width (RBC) [Ratio]17.2 %High11.5 - 14.5 %[facility] HospitalHematocrit (Bld) [Volume fraction]29.4 %Low36.0 - 46.0 %[facility] Hemoglobin (Bld) [Mass/Vol]9.1 g/dLLow12.0 - 16.0 g/dLUnTrinity Health System Twin City Medical CenterImmaselect medical specialty hospital [facility] granulocytes (Bld) [#/Vol]0.04 10*3/[facility] HospitalImhannibal regional hospital granulocytes/100 WBC (Bld)1.5 %High0.0 - 0.9 %[facility] on above:Immature Granulocyte Count (IG) includes promyelocytes, myelocytes and metamyelocytes but does not include bands. Percent differential counts (%) should be interpreted in the context of the absolute c ell counts (cells/UL).Interpretation and review of laboratory resultsAbnormal [facility] HospitalLymphocytes (Bld) [#/Vol]0.61 10*3/uLCleveland Clinic Hillcrest HospitalLymphocytes/100 WBC (Bld)23.1 %13.0 - 44.0 % [facility] CenterH (RBC) [Entitic mass]26.7 pg26.0 - 34.0 pg [facility] CenterHC (RBC) [Mass/Vol]31.0 g/dLLow32.0 - 36.0 g/dLUnSt. Vincent HospitalV (RBC) [Entitic vol]86 fL80 - 100 fL [facility] HospitalMonocytes (Bld) [#/Vol]0.40 10*3/[facility] HospitalMonocytes/100 WBC (Bld)15.2 %2.0 - 10.0 %[facility] HospitalNeutrophils (Bld) [#/Vol]1.52 10*3/uLUniversity Hospitals of ClevelandComment on above:Percent differential counts (%) should be interpreted in the context of the absolute cell counts (cells/uL). Neutrophils/100 WBC (Bld)57.5 %40.0 - 80.0 %[facility] Nucleated RBC/100 WBC (Bld) [Ratio]0.0 %[facility] Platelets (Bld) [#/Vol]59 10*3/[facility] HospitalRBC (Bld) [#/Vol]3.41 10*6/[facility] HospitalWBC (Bld) [#/Vol]2.6 10*3/[facility] HospitalUnTrinity Health System Twin City Medical Center Basophils (Bld) [#/Vol]0.00 x10*3/uLNormal0.00-0.10[facility] Medical CenterComment on above:Performed By: #### 57723-1 ####WIL HOLBROOK ([id number])[facility] (ALEX)[address] [place], [place] [address]Llzzkipzf/100 WBC (Bld)0.0 %Normal0.0-2.0[facility] Medical CenterComment on above:Performed By: #### 93976-9 ####WIL Villalobos'VANDANA ([id number])[facility] (ALEX)[address] [place] [address] Eosinophils (Bld) [#/Vol]0.07 x10*3/uLNormal0.00-0.70[facility] Medical CenterComment on above:Performed By: #### 83612-9 ####WIL Villalobos'VANDANA ([id number])[facility] (ALEX)[address] [place], [place] [address]Volzlchvxkp/100 WBC (Bld)2.7 %Normal0.0-6.0[facility] Medical CenterComment on above:Performed By: #### 29234-8 ####WIL Villalobos'VANDANA ([id number])[facility] (ALEX)[address] [place], [place] [address]Wivuqasefgl distribution width (RBC) [Ratio]17.2 %High11.5-14.5 [facility] Medical CenterComment on above:Performed By: #### 61052-5 ####WIL HOLBROOK ([id number])[facility] (ALEX)[address] [place], [place] [address]Vkjuwgjefc (Bld) [Volume fraction]29.4 %Low 36.0-46.0UnCleveland Clinic Mercy HospitalComment on above:Performed By: #### 62702-3 ####WIL HOLBROOK ([id number])[facility] (ALEX)[address] [place], [place] [address]Jcqmxldrrj (Bld) [Mass/Vol]9.1 g/dLLow 12.0-16.0UnCleveland Clinic Mercy HospitalComment on above:Performed By: #### 59484-9 ####WIL HOLBROOK ([id number])[facility] (ALEX)[address] [place], [place] [address]Vkdzzlqh granulocytes (Bld) [#/Vol]0.04 x10*3/uLNormal0.00-0.70UnCleveland Clinic Mercy HospitalComment on above:Performed By: #### 77249-0 ####WIL HOLBROOK ([id number])[facility] (ALEX)[address], [place] [address]Pomujegq granulocytes/100 WBC (Bld)1.5 %High0.0-0.9UnCleveland Clinic Mercy HospitalComment on above:Result Comment: Immature Granulocyte Count (IG) includes promyelocytes, myelocytes and metamyelocytes but does not include bands. Percent differential counts (%) should be interpreted in the context of the absolute cell counts (cells/UL).Performed By: #### 99394-7 ####WIL HOLBROOK ([id number])[facility] (ALEX)[address] [place], [place] [address]Cgacuxeqxam (Bld) [#/Vol]0.61 x10*3/uLLow1.20-4.80[facility] Comment on above:Performed By: #### 14862-9 ####WIL HOLBROOK ([id number])[facility] (ALEX)[address] [place] [address] Lymphocytes/100 WBC (Bld)23.1 %Obqmfb70.0-44.0UnCleveland Clinic Mercy HospitalComment on above:Performed By: #### 92550-1 ####WIL HOLBROOK ([id number])[facility] (ALEX)[address] [place] [address] MCH (RBC) [Entitic mass]26.7 vqErqkvx66.0-34.0UnCleveland Clinic Mercy HospitalComment on above:Performed By: #### 52161-2 ####WIL HOLBROOK ([id number])[facility] (ALEX)[address] [place] [address] MCHC (RBC) [Mass/Vol]31.0 g/dLLow32.0-36.0UnCleveland Clinic Mercy HospitalComment on above:Performed By: #### 93738-5 ####WIL HOLBROOK ([id number])[facility] (ALEX)[address] [place] [address] MCV (RBC) [Entitic vol]86 nBJmkszp05-987LqrjtyjghsCleveland Clinic Mercy HospitalComment on above:Performed By: #### 95096-7 ####WIL HOLBROOK ([id number])[facility] (ALEX)[address] [place], [place] [address]Dajdvmyec (Bld) [#/Vol]0.40 x10*3/uLNormal0.10-1.00UnCleveland Clinic Mercy HospitalComment on above:Performed By: #### 27067-0 ####WIL HOLBROOK ([id number])[facility] (ALEX)[address] [place] [address] Monocytes/100 WBC (Bld)15.2 %Normal2.0-10.0[facility] Medical CenterComment on above:Performed By: #### 59624-6 ####WIL HOLBROOK ([id number])[facility] (ALEX)[address] [place] [address] Neutrophils (Bld) [#/Vol]1.52 x10*3/uLNormal1.20-7.70[facility] Medical CenterComment on above:Result Comment: Percent differential counts (%) should be interpreted in the context of the absolute cell counts (cells/uL).Performed By: #### 91949-0 ####WIL HOLBROOK ([id number])[facility] (ALEX)[address] [place], [place] [address]Jjqpibjzrxv/100 WBC (Bld)57.5 %Zuuayq98.0-80.0[facility] Medical CenterComment on above:Performed By: #### 58730-0 ####WIL HOLBROOK ([id number])[facility] (ALEX)[address] [place], [place] [address]Fhiukzqwg RBC/100 WBC (Bld) [Ratio]0.0 /100 WBCsNormal0.0-0.0[facility] Medical CenterComment on above:Performed By: #### 25874-9 ####WIL HOLBROOK ([id number])[facility] (ALEX)[address] [place], [place] [address]Svmvgwpmi (Bld) [#/Vol]59 x10*3/uKBhd032-525FnmyxfxezjCleveland Clinic Mercy Hospital Comment on above:Performed By: #### 35871-9 ####WIL HOLBROOK ([id number])[facility] (ALEX)[address] [place], [place] [address]KMN (Bld) [#/Vol]3.41 x10*6/uLLow4.00-5.20UnCleveland Clinic Mercy Hospital Comment on above:Performed By: #### 24978-0 ####WIL HOLBROOK ([id number])[facility] (ALEX)[address] [facility], [place] [address]HRM (Bld) [#/Vol]2.6 x10*3/uLLow4.4-11.3[facility] Comment on above:Performed By: #### 32246-7 ####WIL HOLBROOK ([id number])[facility] (ALEX)[address] [place] [address]Usspvtjwjvbjx metabolic 2000 panelon 37-74-0512Eshrkmh BCP dye [Mass/Vol]3.3 g/dLLow3.4 - 5.0 g/dLUnTrinity Health System Twin City Medical CenterALP [Catalytic activity/Vol]94 U/L33 - 136 U/[facility] CenterALT With P-5'-P [Catalytic activity/Vol]14 U/L7 - 45 U/[facility] CenterComhenry ford mac[facility] hospital on above:Patients treated with Sulfasalazine may generate falsely decreased results for ALT.Anion gap [Moles/Vol]13 mmol/L10 - 20 mmol/[facility] CenterAST With P-5'-P [Catalytic activity/Vol]29 U/L9 - 39 U/[facility] Bilirubin [Mass/Vol]1.2 mg/dL0.0 - 1.2 mg/dLUnTrinity Health System Twin [facility] Medical Center Calcium [Mass/Vol]8.4 mg/dLLow8.6 - 10.3 mg/dLUnTrinity Health System [facility] Chloride [Moles/Vol]106 mmol/L98 - 107 mmol/[facility] CO2 [Moles/Vol]25 mmol/L21 - 32 mmol/[facility] Creatinine [Mass/Vol]0.58 mg/dL0.50 - 1.05 mg/dLUnTrinity Health System Twin City Medical CentereGFR- PINFUniParkview Health on above: Calculations of estimated GFR are performed using the 2020 CKD-EPI Study Refit equation without therace variable for the IDMS-Traceable creatinine methods. https://jasn.asnjournals.org/content//ASN.3579401895 Glucose [Mass/Vol]109 mg/cTRcvg00 - 99 mg/dLUnTrinity Health System [facility] Interpretation and review of laboratory resultsAbnormalUniTriHealth McCullough-Hyde Memorial HospitalPotassium [Moles/Vol]3.9 mmol/L3.5 - 5.3 mmol/[facility] CenterProtein [Mass/Vol]5.2 g/dLLow6.4 - 8.2 g/dLUnTrinity Health System Twin City Medical CenterSodium [Moles/Vol]140 mmol/L136 - 145 mmol/[facility] CenterUrea nitrogen [Mass/Vol]10 mg/dL6 - 23 mg/dLUnTrinity Health System Twin City Medical CenterUnTrinity Health [facility] Medical CenterAlbumin BCP dye [Mass/Vol]3.3 g/dLLow 3.4-5.0UnCleveland Clinic Mercy HospitalComment on above:Performed By: #### 57506-9 ####WIL HOLBROOK ([id number])[facility] (ALEX)[address] [place], [place] [address]ADA [Catalytic activity/Vol]94 U/L Zzbqpw05-061YxargmyzieSouthview Medical CenterComment on above: Performed By: #### 69044-8 ####WIL HOLBROOK ([id number])[facility] (ALEX)[address] [place], [place] [address]IUP With P-5'-P [Catalytic activity/Vol]14 U/LNormal7-45[facility] Comment on above:Result Comment: Patients treated with Sulfasalazine may generate falsely decreased results for ALT.Performed By: #### 48735-0 ####WIL HOLBROOK ([id number])[facility] (ALEX)[address] [place], [place] [address]Jqcoq gap [Moles/Vol]13 mmol/OKxoacl57-40LdnlhvrkdbSouthview Medical CenterComment on above:Performed By: #### 94663-7 ####WIL Villalobos'VANDANA ([id number])[facility] (ALEX)[address] [place] [address] AST With P-5'-P [Catalytic activity/Vol]29 U/LNormal9-39[facility] CenterComment on above:Performed By: #### 52943-6 ####WIL Villalobos'VANDANA ([id number])[facility] (ALEX)[address] [place], [place] [address]Bwwfmrker [Mass/Vol]1.2 mg/dLNormal0.0-1.2[facility] CenterComment on above:Performed By: #### 76907-1 ####WIL Villalobos'VANDANA ([id number])[facility] (ALEX)[address] [place] [address] Calcium [Mass/Vol]8.4 mg/dLLow8.6-10.3[facility] CenterComment on above:Performed By: #### 31023-0 ####WIL Villalobos'VANDANA ([id number])[facility] (ALEX)[address] [place], [place] [address]Xxcnbkpz [Moles/Vol]106 mmol/AWjwhwx37-025CqwgpeatmiSouthview Medical Center Comment on above:Performed By: #### 39041-2 ####WIL Villalobos'VANDANA ([id number])[facility] (ALEX)[address] [place], [place] [address]HR7 [Moles/Vol]25 mmol/JRrarcp14-24IvsotafmnzSouthview Medical Center Comment on above:Performed By: #### 04628-8 ####WIL Villalobos'VANDANA ([id number])[facility] (ALEX)[address] [place], [place] [address]Bxboigtclg [Mass/Vol]0.58 mg/dLNormal0.50-1.05[facility] Comment on above:Performed By: #### 81132-3 ####WIL HOLBROOK ([id number])[facility] (ALEX)[address] [place], [place] [address]PRM/1.73 sq M.predicted MDRD (S/P/Bld) [Vol rate/Area]mL/min/{1.73_m2}Normal>60UnCleveland Clinic Mercy HospitalComment on above:Result Comment: Calculations of estimated GFR are performed using the 2020 CKD-EPI Study Refit equation without the race variable for the IDMS-Traceable creatinine methods.https://jasn.asnjournals.org/content/early//ASN.5246993944 Performed By: #### 11863-1 ####WIL HOLBROOK ([id number])[facility] (ALEX)[address] [place], [place] [address]Yuzwyxa [Mass/Vol]109 mg/dLHigh 74-99UnCleveland Clinic Mercy HospitalComment on above:Performed By: #### 99570-9 ####WIL Villalobos'VANDANA ([id number])[facility] (ALEX)[address] [place], [place] [address]Nepowbpib [Moles/Vol]3.9 mmol/LNormal 3.5-5.3UnCleveland Clinic Mercy HospitalComment on above:Performed By: #### 77112-3 ####WIL HOLBROOK ([id number])[facility] (ALEX)[address] [place], [place] [address]Fassopb [Mass/Vol]5.2 g/dLLow6.4-8.2 [facility] CenterComment on above:Performed By: #### 65979-4 ####WIL HOLBROOK ([id number])[facility] (ALEX)[address] [place], [place] [address]Gjbjur [Moles/Vol]140 mmol/RFujqyl918-478MubqpyfvliCleveland Clinic Mercy HospitalComment on above:Performed By: #### 79675-3 ####WIL HOLBROOK ([id number])[facility] (ALEX)[address] [place], [place] [address]Gpgv nitrogen [Mass/Vol]10 mg/dLNormal6-23[facility] CenterComment on above:Performed By: #### 91373-0 ####WIL HOLBROOK ([id number])[facility] (ALEX)[address] [place], [place] [address]XFMLVBABTOZMMEC (IGG, IGA, IGM)on 70-60-7011XcM [Mass/Vol] mg/gFPwd71-714ZanmrlotcgSouthview Medical CenterComment on above: Order Comment: MONOCLONAL PROTEINS MAY CAUSE FALSELY LOWRESULTS IN THIS ASSAY. SERUM PROTEINELECTROPHORESIS SHOULD BE DONE THEFIRST TEST TO EVALUATE MONOCLONAL GAMMOPATHY.Performed By: #### IGS ####ARNULFO Roger ([id number])[facility] ([facility])[address] [place], [place] [address]FtB [Mass/Vol]461 mg/bZRmw882-8924XqlpjtxkzfCleveland Clinic Mercy HospitalComment on above: Order Comment: MONOCLONAL PROTEINS MAY CAUSE FALSELY LOWRESULTS IN THIS ASSAY. SERUM PROTEINELECTROPHORESIS SHOULD BE DONE THEFIRST TEST TO EVALUATE MONOCLONAL GAMMOPATHY.Performed By: #### IGS ####ARNULFO Roger ([id number])[facility] ([facility])[address] [place], [place] [address]IfW [Mass/Vol]mg/dL Wng50-100LjohwepqskCleveland Clinic Mercy HospitalComment on above:Order Comment: MONOCLONAL PROTEINS MAY CAUSE FALSELY LOWRESULTS IN THIS ASSAY. SERUM PROTEINELECTROPHORESIS SHOULD BE DONE THEFIRST TEST TO EVALUATE MONOCLONAL GAMMOPATHY.Performed By: #### IGS ####ARNULFO Roger ([id number])[facility] ([facility])[address] [place] [address]Wtzzslqrdiqvkm light chains.free panel (S)on 70-80-3340Xjcgkkkvgnffhj light chains.kappa [Mass/Vol]<0.08Low 0.33-1.94[facility] Medical CenterComment on above:Order Comment: Undetected antigen [...] be discussedwith the testing laboratory.Performed By: #### 03184-1 ####ARNULFO Roger ([id number])[facility] ([facility])[address] [place] [address]Dgssuqxyyoxmdj light chains.kappa/Immunoglobulin light chains.lambda (S) [Mass ratio]Normal [facility] Medical CenterComment on above:Order Comment: Undetected antigen [...] measurement range.Calculation cannot be performed.Performed By: #### 94938-1 ####ARNULFO Roger ([id number])[facility] ([facility])[address] [place] [address]Iwerazmcvcuuve light chains.lambda [Mass/Vol]<0.17Low 0.57-2.63[facility] Medical CenterComment on above:Order Comment: Undetected antigen [...] be discussedwith the testing laboratory.Performed By: #### 82072-7 ####ARNULFO Roger ([id number])[facility] ([facility])[address] [place], [place] [address]Mfctfgrlrckcuiz (IgG, IgA, IgM)Ordered By: Todd Deluca on 33-00-8316LuQ [Mass/Vol]mg/dLLow70 - 400 mg/dLChillicothe HospitalIgG [Mass/Vol]461 mg/sYOzd473 - 1600 mg/dLChillicothe HospitalIgM [Mass/Vol]mg/dLLow40 - 230 mg/dL [facility] HospitalInterpretation and review of laboratory results AbnormalUnTrinity Health System Twin City Medical CenterMONOCLONAL PROTEINS MAY CAUSE FALSELY LOW RESULTS IN THIS ASSAY. SERUM PROTEIN ELECTROPHORESIS SHOULD BE DONE THE FIRST TEST TO EVALUATE MONOCLONAL GAMMOPATHY.[facility] HospitalProteinon 61-84-1345Bdazrkw [Mass/Vol]5.0 g/dL Low6.4-8.2UnCleveland Clinic Mercy HospitalComment on above: Performed By: #### 2885-2 ####ARNULFO Roger ([id number])[facility] ([facility])[address] [place] [address]Kwzcvja electrophoresis panelon 12-29-2023 Albumin [Mass/Vol]3.0 g/dLLow3.4-5.0UnCleveland Clinic Mercy HospitalComment on above:Performed By: #### 42601-8 ####ARNULFO Roger ([id number])[facility] ([facility])[id number] [place] [address]LWGKC 1 GLOBULIN0.4 g/dLNormal0.2-0.6UnCleveland Clinic Mercy HospitalComment on above: Performed By: #### 71775-6 ####ARNULFO Roger ([id number])[facility] ([facility])[address] [place], [place] [address]SJGRS 2 GLOBULIN0.6 g/dLNormal0.4-1.1UnCleveland Clinic Mercy HospitalComment on above:Performed By: #### 89603-2 ####ARNULFO Roger ([id number])[facility] ([facility])[address] [place] [address]UYZS GLOBULIN0.7 g/dLNormal0.5-1.2UnCleveland Clinic Mercy HospitalComment on above:Performed By: #### 89931-5 ####ARNULFO Roger ([id number])[facility] ([facility])[address] [place], [place] [address]ZMQCY GLOBULIN0.4 g/dLLow0.5-1.4[facility] Medical CenterComment on above: Performed By: #### 29220-4 ####ARNULFO Roger ([id number])[facility] ([facility])[address] [place] [address]NEGT REVIEW-SERUM PROTEIN ELECTROPHORESIS Reviewed and approved by CASS FREEDMAN on 12/31/23 at 5:08 PM.[facility] Health CenterComment on above:Performed By: #### 36640-0 ####ARNULFO Roger ([id number])[facility] ([facility])[address] [place] [address]PNNQTHX ELECTROPHORESIS COMMENTHypoalbuminemia.[facility] Health CenterComment on above:Performed By: #### 05886-9 ####ARNULFO Roger ([id number])[facility] ([facility])[address] [place] [address]Bgjmxtykz partial thromboplastin time (aPTT) in platelet poor plasma by coagulation aOrdered By: Faye Gaytan on 61-15-2679bZMD Coag (PPP) [Time]33.6 s25.1-36.5FOhioHealth Arthur G.H. Bing, MD, Cancer CenterComment on above:A hematocrit value greater than 55% may lead to inaccurate results in coagulation testing. Patients having hematocrit values >55% require a special collection tube for coagulation studies. Please contact the laboratory at [phone] for redraw instructions. Anisocytosis LM Ql (Bld)Ordered By: Faye Gaytan on 03-99-9931Ojfkchrzodvw Ql (Bld)ModerateChildren'S Hospital For RehabilitationBacterial blood cultureOrdered By: Faye Gaytan on 80-60-2343Pgrnvbkp identified Cx Nom (Bld)NO GROWTH 5 DAYSChildren'S Hospital For RehabilitationBacteria identified Cx Nom (Bld)NO GROWTH 5 [facility] SystemBasophils Auto (Bld) [#/Vol]Ordered By: Faye Gaytan on 69-62-8331Uhgydltac (Bld) [#/Vol]0.0 10*3/uL0.0-0.2FOhioHealth Arthur G.H. Bing, MD, Cancer CenterBasophils/100 WBC Auto (Bld)Ordered By: Faye Gaytan on 10-73-3844Fkjpijuwx/100 WBC (Bld)0.5 %.[facility] For RehabilitationCOVID CepheidOrdered By: Faye Gaytan on 87-87-0303WNEP-CoV-2 (COVID-19) Ab IA Ql PositiveNegativeChildren'S Hospital For RehabilitationComment on above:This is a duplicate Cepheid Xpert Xpress CoV-2/Flu/RSV Plus RNA by RT-PCR result to be used for statistical tracking purpose only.SARS-CoV-2 (COVID-19) RNA JOHANN+probe Ql (Unsp spec)[facility] HealthARS-CoV-[facility] (COVID-19) RNA JOHANN+probe Ql (Unsp spec)[facility] For RehabilitationCalcium [Mass/volume] in Serum or PlasmaOrdered By: Faye Gaytan on 41-29-2526Kzmygab [Mass/Vol]8.0 mg/dL8.6-10.3FOhioHealth Arthur G.H. Bing, MD, Cancer CenterCarbon dioxide, total [Moles/volume] in Serum or PlasmaOrdered By: Faye Gaytan on 76-72-3359KE2 [Moles/Vol]25.6 mmol/L21.0-31.0[facility] For RehabilitationChloride [Moles/volume] in Serum or PlasmaOrdered By: Faye Gaytan on 12-17-2023 Chloride [Moles/Vol]108 mmol/B35-198UskhbjqglChildren'S Hospital For RehabilitationCreatinine [Mass/volume] in Serum or PlasmaOrdered By: Faye Gaytan on 12-17-2023 Creatinine [Mass/Vol]0.61 mg/dL0.60-1.20[facility] Eosinophils Auto (Bld) [#/Vol]Ordered By: Faye Gaytan on 12-17-2023 Eosinophils (Bld) [#/Vol]0.1 10*3/uL0.0-0.45[facility] Eosinophils/100 WBC Auto (Bld)Ordered By: Faye Nicolas on 12-17-2023 Eosinophils/100 WBC (Bld)4.0 %.[facility] Hospital For RehabilitationErythrocyte distribution width Auto (RBC) [Ratio]Ordered By: Faye Leeselect [facility] [place] on 12-17-2023 Erythrocyte distribution width (RBC) [Ratio]18.2 %11.9-15.3FOhioHealth Arthur G.H. Bing, MD, Cancer CenterFibrin D-dimer [Presence] in Platelet poor plasma by Latex agglutinationOrdered By: Faye Leeksroberto on 43-31-0769Znccmc D-dimer LA Ql (PPP) 775 ng/mL0-243[facility] Hospital For RehabilitationComment on above:The reference range for D-dimer is [...] coagulation studies. Please contact the laboratory at [phone] for redraw instructions.Glucose [Mass/volume] in Serum or PlasmaOrdered By: Faye Leeksroberto on 30-50-5824Tdtuzdm [Mass/Vol]140 mg/gT29-571OiqqaeqicChildren'S Hospital For RehabilitationComment on above:ADA recommended reference rangeRandom Glucose Reference Range is dependent on time and content of last meal. Glucose of more than 200 mg/dL in a nonstressed, ambulatory subject supports the diagnosisof Diabetes Mellitus.Hematocrit Auto (Bld) [Volume fraction]Ordered By: Faye Leeksroberto on 55-42-8995Ddceetgagm (Bld) [Volume fraction]26.5 %34.0-46.4FOhioHealth Arthur G.H. Bing, MD, Cancer CenterHemoglobin [Mass/volume] in BloodOrdered By: Faye Gaytan on 54-25-3261Noyphuoxhd (Bld) [Mass/Vol]8.6 g/dL11.8-15.4FOhioHealth Arthur G.H. Bing, MD, Cancer CenterINR in Platelet poor plasma by Coagulation assayOrdered By: Faye Gaytan on 34-39-2708FND Coag (PPP) [Relative time]1.3 {INR}[facility] Hospital For RehabilitationComment on above:INR Therapeutic Range A) Pre- and [...] or Plasma Ordered By: Faye Gaytan on 60-00-3443Xngyete [Moles/Vol]1.8 mmol/L0.5-2.2 [facility] For RehabilitationLeukocytes [#/volume] corrected for nucleated erythrocytes in Blood by Automated counOrdered By: Faye Gaytan on 12-17-2023 WBC corrected for nucl RBC Auto (Bld) [#/Vol]1.7 10*3/uL3.8-11.6FOhioHealth Arthur G.H. Bing, MD, Cancer CenterLymphocytes Auto (Bld) [#/Vol]Ordered By: Faye Gaytan on 28-94-3225Wkvdioxqhej (Bld) [#/Vol]0.4 10*3/uL1.00-4.8[facility] For RehabilitationLymphocytes/100 WBC Auto (Bld)Ordered By: Faye Gaytan on 67-68-2800Ukdlwfhdcma/100 WBC (Bld)22.9 %.[facility] Auto (RBC) [Entitic mass]Ordered By: Faye Gaytan on 83-85-2730ZNJ (RBC) [Entitic mass]27.5 pg24.7-34.3FWilson HealthHC Auto (RBC) [Mass/Vol]Ordered By: Faye Gaytan on 97-32-6746HINR (RBC) [Mass/Vol]32.6 g/dL32.0-35.0[facility] For RehabilitationMCV Auto (RBC) [Entitic vol] Ordered By: Faye Gaytan on 27-62-8796VAI (RBC) [Entitic vol]84.5 nT32-856 [facility] For RehabilitationMonocyte distribution width [Entitic volume] in Blood by AutomatedOrdered By: Faye Gaytan on 43-21-7941Azkeysuu distribution width Auto (Bld) [Entitic vol]20.92 %0.00-20.00[facility] Comment on above:For adults in ED, MDW > 20.0 may be associated with a higher risk of sepsis during the first 12 hrs of hospital admissionThe predictive value of MDW for identifying sepsis in patients with hematological abnormalities has not been establishedMonocytes Auto (Bld) [#/Vol]Ordered By: Faye Gaytan on 82-24-4737Sasdeedjp (Bld) [#/Vol]0.3 10*3/uL0.0-0.8[facility] For RehabilitationMonocytes/100 WBC Auto (Bld)Ordered By: Faye Gaytan on 12-17-2023 Monocytes/100 WBC (Bld)20.3 %.[facility] For RehabilitationNatriuretic peptide B [Mass/Vol]Ordered By: Faye Gaytan on 53-38-9922Barepukotny peptide B (Bld) [Mass/Vol]182.0 pg/mL5-100[facility] For RehabilitationNeutrophils Auto (Bld) [#/Vol]Ordered By: Faye Gaytan on 78-63-0764Eqbixutzsgr (Bld) [#/Vol]0.9 10*3/uL1.8-7.7FOhioHealth Arthur G.H. Bing, MD, Cancer CenterNeutrophils/100 WBC Auto (Bld)Ordered By: Faye Gaytan on 90-53-7564Vjhczxwchco/100 WBC (Bld)52.3 %.[facility] For RehabilitationNo Panel InformationOrdered By: Faye Gaytan on 33-68-6549Wpnmekwbf GFR (CKD-EPI)> 60.0 mL/MinChildren'S Hospital For RehabilitationPharmacy Creatinine Clearance (Chem69.21[facility] CenterNucleated erythrocytes [Presence] in Blood by Automated countOrdered By: Faye Gaytan on 80-55-9141Nsvfsyysk RBC Auto Ql (Bld)0.2 /100{WBC}0-0.5 [facility] For RehabilitationOvalocyte detectionOrdered By: Faye Gaytan on 80-33-8929Xubbotatar LM Ql (Bld)[facility] Platelet adequacy [Presence] in Blood by Light microscopyOrdered By: Faye Gaytan on 18-43-5191Sjbhwavwo LM Ql (Bld)DecreasedNormWood County HospitalPlatelet mean volume Auto (Bld) [Entitic vol]Ordered By: Faye Gaytan on 18-61-2095Bgmgluiw mean volume (Bld) [Entitic vol]8.2 fL6.3-10.7 [facility] For RehabilitationPlatelet morphology finding [Identifier] in BloodOrdered By: Faye Gaytan on 94-06-3177Dxxanxnk morphology finding Nom (Bld)NormalNormWood County HospitalPlatelets Auto (Bld) [#/Vol] Ordered By: Faye Gaytan on 35-00-1135Bbqppwtju (Bld) [#/Vol]43 10*3/uL 150-450[facility] For RehabilitationPoikilocytosis [Presence] in Blood by Light microscopyOrdered By: Faye Gaytan on 01-88-6178Mswblybxjzlhtu LM Ql (Bld)[facility]'s HospitalPotassium [Moles/volume] in Serum or PlasmaOrdered By: Faye Gaytan 96-38-8803Fonoowcwt [Moles/Vol]3.4 mmol/L 3.5-5.1FOhioHealth Arthur G.H. Bing, MD, Cancer CenterProthrombin time (PT)Ordered By: Faye Gaytan on 84-97-8291RM Coag (PPP) [Time]14.5 s9.0-12.9[facility] Hospital For RehabilitationComment on above:A hematocrit value greater than 55% may lead to inaccurate results in coagulation testing. Patientshaving hematocrit values >55% require a special collection tube for coagulation studies. Please c ontact the laboratory at [phone] for redraw instructions.RBC Auto (Bld) [#/Vol]Ordered By: Faye Gaytan on 14-83-7637ANE (Bld) [#/Vol]3.14 10*6/uL 3.60-5.00[facility] For RehabilitationRB morphologyOrdered By: Faye Gaytan on 37-24-6697HJX morphology finding Nom (Bld)N/AFKettering Health Daytonerum or plasma anion gap determinationOrdered By: Faye Gaytan on 56-50-9331Papvt gap [Moles/Vol]7.8 mmol/L6.0-15.0Summa Healthodium [Moles/volume] in Serum or PlasmaOrdered By: Faye Gaytan on 54-89-1632Jussyq [Moles/Vol]138 mmol/T017-658LanmlmagvChildren'S Hospital For Rehabilitation Troponin I.cardiac [Mass/volume] in Serum or Plasma by Detection limit <= 0.01 ng/Ordered By: Faye Gaytan on 34-12-0628Kgeeuwlg I.cardiac DL <= 0.01 ng/mL [Mass/Vol]6.5 pg/mL0.0-15.0[facility] For RehabilitationUrea nitrogen [Mass/volume] in Serum or PlasmaOrdered By: Faye Gaytan on 45-98-5379Blgz nitrogen [Mass/Vol]10 mg/dL7-25[facility] For RehabilitationWBC Auto (Bld) [#/Vol]Ordered By: Faye Gaytan on 09-50-8239GEQ (Bld) [#/Vol]1.7 10*3/uL 3.8-11.6FOhioHealth Arthur G.H. Bing, MD, Cancer CenterCB W Auto Differential panel (Bld)on 04-52-6495Vyhktldvgyj distribution width (RBC) [Ratio]17.3 %High11.5-14.5 [facility] CenterComment on above:Order Comment: The previously reported component [...] is no longer being reported.Performed By: #### 29117-6 ####WIL HOLBROOK ([id number])[facility] (ALXE)[address] [facility], [place] [address]Mxohrmmaon (Bld) [Volume fraction]27.2 %Low36.0-46.0[facility] CenterComment on above:Order Comment: The previously reported component [...] is no longer being reported.Performed By: #### 01231-6 ####WIL HOLBROOK ([id number])[facility] (ALEX)[address] [facility], [place] [address]Pywaybxalo (Bld) [Mass/Vol]8.6 g/dLLow 12.0-16.0[facility] CenterComment on above:Order Comment: The previously reported component [...] is no longer being reported.Performed By: #### 21966-3 ####WIL OHLBROOK ([id number])[facility] (ALEX)[address] [facility] [place] [address] Immature granulocytes (Bld) [#/Vol]0.12 x10*3/uLNormal0.00-0.70[facility] CenterComment on above:Order Comment: The previously reported component [...] is no longer being reported.Performed By: #### 59288-9 ####WIL HOLBROOK ([id number])[facility] (ALEX)[address] [facility] [place] [place] [address]Eyuoeoqi granulocytes/100 WBC (Bld)5.7 %High0.0-0.9[facility] CenterComment on above:Order Comment: The previously reported component [...] absolute cell counts (cells/UL). Performed By: #### 72309-5 ####WIL HOLBROOK ([id number])[facility] (ALEX)[address] [facility] [address]TCL (RBC) [Entitic mass]27.7 pg Nbbdvu73.0-34.0[facility] CenterComment on above: Order Comment: The previously reported [...] is no longer being reported.Performed By: #### 62501-1 ####WIL HOLBROOK ([id number])[facility] (ALEX)[address] [place] [address] MCHC (RBC) [Mass/Vol]31.6 g/dLLow32.0-36.0UnCleveland Clinic Mercy HospitalComment on above:Order Comment: The previously reported [...] is no longer being reported.Performed By: #### 95883-8 ####WIL HOLBROOK ([id number])[facility] (ALEX)[address] [facility], [place] [address]WFV (RBC) [Entitic vol]88 fLNormal 80-100UnCleveland Clinic Mercy HospitalComment on above:Order Comment: The previously reported [...] is no longer being reported.Performed By: #### 55666-1 ####WIL HOLBROOK ([id number])[facility] (ALEX)[address] [place] [address] Nucleated RBC/100 WBC (Bld) [Ratio]0.0 /100 WBCsNormal0.0-0.0[facility] CenterComment on above:Order Comment: The previously reported component [...] is no longer being reported.Performed By: #### 72776-6 ####WIL HOLBROOK ([id number])[facility] (ALEX)[address] [place], [place] [address]Oqqopldln (Bld) [#/Vol]44 x10*3/vLJqj162-246JbgunxibskCleveland Clinic Mercy Hospital Comment on above:Order Comment: The previously [...] is no longer being reported.Performed By: #### 74139-0 ####WIL HOLBROOK ([id number])[facility] (ALEX)[address] [place] [address] RBC (Bld) [#/Vol]3.11 x10*6/uLLow4.00-5.20[facility] CenterComment on above:Order Comment: The previously reported component [...] is no longer being reported.Performed By: #### 72085-3 ####WIL HOLBROOK ([id number])[facility] (ALEX)[address] [facility] [address]XUQ (Bld) [#/Vol]2.1 x10*3/uLLow 4.4-11.3[facility] CenterComment on above:Order Comment: The previously reported component [...] is no longer being reported.Performed By: #### 61830-6 ####WIL HOLBROOK ([id number])[facility] (ALEX)[address] [place] [address] Comprehensive metabolic 2000 panelon 13-07-7244Dugnilo BCP dye [Mass/Vol]3.1 g/dLLow3.4-5.0[facility] CenterComment on above: Performed By: #### 99242-9 ####WIL HOLBROOK ([id number])[facility] (ALEX)[address] [place] [place], [place] [address]TFS [Catalytic activity/Vol]84 U/L Yzzlwp84-239VvsqtsaxevCleveland Clinic Mercy HospitalComment on above: Performed By: #### 43536-1 ####WIL HOLBROOK ([id number])[facility] (ALEX)[address] [place], [place] [address]OVQ With P-5'-P [Catalytic activity/Vol]17 U/LNormal7-45[facility] Comment on above:Result Comment: Patients treated with Sulfasalazine may generate falsely decreased results for ALT.Performed By: #### 63981-3 ####WIL HOLBROOK ([id number])[facility] (ALEX)[address] [place], [place] [address]Nfjrl gap [Moles/Vol]12 mmol/QDxudxv85-51OobqeduveiSouthview Medical CenterComment on above:Performed By: #### 91761-6 ####WIL HOLBROOK ([id number])[facility] (ALEX)[address] [place] [address] AST With P-5'-P [Catalytic activity/Vol]26 U/LNormal9-39UnCleveland Clinic Mercy HospitalComment on above:Performed By: #### 88686-9 ####WIL HOLBROOK ([id number])[facility] (ALEX)[address] [place], [place] [address]Pzielitzf [Mass/Vol]1.1 mg/dLNormal0.0-1.2[facility] CenterComment on above:Performed By: #### 48796-3 ####WIL HOLBROOK ([id number])[facility] (ALEX)[address] [place] [address] Calcium [Mass/Vol]8.0 mg/dLLow8.6-10.3[facility] CenterComment on above:Performed By: #### 11038-5 ####WIL Villalobos'VANDANA ([id number])[facility] (ALEX)[address] [place] [address]Zldpyjql [Moles/Vol]108 mmol/LOgqt05-812HesqyoglfiCleveland Clinic Mercy Hospital Comment on above:Performed By: #### 90068-9 ####WIL Villalobos'VANDANA ([id number])[facility] (ALEX)[address] [place] [address]XG1 [Moles/Vol]24 mmol/EZolsob71-01CmgahowfgjSouthview Medical Center Comment on above:Performed By: #### 98510-4 ####WIL Villalobos'VANDANA ([id number])[facility] (ALEX)[address] [place], [place] [address]Cvvglzukzq [Mass/Vol]0.58 mg/dLNormal0.50-1.05[facility] Comment on above:Performed By: #### 79829-2 ####WIL Villalobos'VANDANA ([id number])[facility] (ALEX)[address] [place], [place] [address]QMF/1.73 sq M.predicted MDRD (S/P/Bld) [Vol rate/Area]mL/min/{1.73_m2}Normal>60UnCleveland Clinic Mercy HospitalComment on above:Result Comment: Calculations of estimated GFR are performed using the 2020 CKD-EPI Study Refit equation without the race variable for the IDMS-Traceable creatinine methods.https://jasn.asnjournals.org/content/early/ASN.8837375012 Performed By: #### 89096-2 ####WIL Villalobos'VANDANA ([id number])[facility] (ALEX)[address] [place], [place] [address]Ovvosbc [Mass/Vol]98 mg/dLNormal 74-99UnCleveland Clinic Mercy HospitalComment on above:Performed By: #### 86477-2 ####WIL HOLBROOK ([id number])[facility] (ALEX)[address] [place] [address]Xjhpwpzbb [Moles/Vol]3.6 mmol/LNormal 3.5-5.3UnCleveland Clinic Mercy HospitalComment on above:Performed By: #### 13203-4 ####WIL Villalobos'VANDANA ([id number])[facility] (ALEX)[address] [place] [address]Wkxtedf [Mass/Vol]4.9 g/dLLow6.4-8.2 [facility] CenterComment on above:Performed By: #### 64019-1 ####WIL HOLBROOK ([id number])[facility] (ALEX)[address] [place], [place] [address]Fghpdd [Moles/Vol]140 mmol/NQlajvv151-196RrtzrvonpwCleveland Clinic Mercy HospitalComment on above:Performed By: #### 14207-8 ####WIL HOLBROOK ([id number])[facility] (ALEX)[address] [place] [address]Nmhe nitrogen [Mass/Vol]12 mg/dLNormal6-23UnCleveland Clinic Mercy HospitalComment on above:Performed By: #### 20898-7 ####WIL HOLBROOK ([id number])[facility] (ALEX)[address] [place], [place] [address]Juvdls differential performed Ql (Bld)on 12-15-2023 Basophils (Bld) [#/Vol]0.00 x10*3/uLNormal0.00-0.10[facility] CenterComment on above:Performed By: #### 16492-8 ####WIL HOLBROOK ([id number])[facility] (ALEX)[address] [place], [place] [address]Wtavmnftb/100 WBC (Bld)0.0 %Normal0.0-2.0[facility] CenterComment on above:Performed By: #### 00933-7 ####WIL Villalobos'VANDANA ([id number])[facility] (ALEX)[address] [place] [address] Blasts Manual cnt (Bld) [#/Vol]0.02 x10*3/uLNormal0.00-0.00[facility] CenterComment on above:Performed By: #### 56235-4 ####WIL Villalobos'VANDANA ([id number])[facility] (ALEX)[address] [place] [address]Wpkjvj/100 WBC (Bld)1.0 %Normal0.0-0.0[facility] CenterComment on above:Performed By: #### 73552-3 ####WIL Villalobos'VANDANA ([id number])[facility] (ALEX)[address] [place] [address] Cells Counted Total (Bld) [#]100[facility] CenterComment on above:Performed By: #### 59451-4 ####WIL Villalobos'VANDANA ([id number])[facility] (ALEX)[address] [place], [place] [address]Zpxef body LM Ql (Bld)PresentNoAshtabula County Medical CenterComment on above:Performed By: #### 20230-9 ####WIL Villalobos'VANDAAN ([id number])[facility] (ALEX)[address] [place], [place] [address]Hsindopsiyo (Bld) [#/Vol] 0.13 x10*3/uLNormal0.00-0.70[facility] CenterComment on above:Performed By: #### 22593-9 ####WIL Villalobos'VANDANA ([id number])[facility] (ALEX)[address] [place], [place] [address]Lnwcghptsyk/100 WBC (Bld)6.0 %Normal0.0-6.0[facility] CenterComment on above:Performed By: #### 68695-6 ####WIL Villalobos'VANDANA ([id number])[facility] (ALEX)[address] [place] [address]Mdthoftmqpy (Bld) [#/Vol] 0.44 x10*3/uLLow1.20-4.80[facility] CenterComment on above:Performed By: #### 16528-3 ####WIL Villalobos'VANDANA ([id number])[facility] (ALEX)[address] [place] [address]Fnqlarkilfy/100 WBC (Bld) 21.0 %Chlqng96.0-44.0[facility] CenterComment on above:Performed By: #### 42182-8 ####WIL Villalobos'VANDANA ([id number])[facility] (ALEX)[address] [place] [address]Pgfdupvvl (Bld) [#/Vol]0.34 x10*3/uLNormal0.10-1.00[facility] CenterComment on above:Performed By: #### 90838-3 ####WIL Villalobos'VANDANA ([id number])[facility] (ALEX)[address] [place] [address]Kfostbcgf/100 WBC (Bld)16.0 %Normal2.0-10.0[facility] CenterComment on above: Performed By: #### 82100-4 ####WIL Villalobos'VANDANA ([id number])[facility] (ALEX)[address] [place] [address]Cptafpbguv LM Ql (Bld)FewNoAdams County HospitalComment on above:Performed By: #### 63409-2 ####WIL O'VANDANA ([id number])[facility] (ALEX)[address] [place], [place] [address]Hfjgbwznrexac LM Ql (Bld)MildNoAshtabula County Medical CenterComment on above:Performed By: #### 16240-6 ####WIL O'VANDANA ([id number])[facility] (ALEX)[address] [place], [place] [address]XWH morphology finding Nom (Bld)See BelowSouthwest General Health CenterComment on above:Performed By: #### 56212-2 ####WIL O'VANDANA ([id number])[facility] (ALEX)[address] [place], [place] [address]Knwtlchls neutrophils (Bld) [#/Vol]1.18 x10*3/uLLow 1.20-7.00[facility] CenterComment on above:Performed By: #### 07575-3 ####WIL O'VANDANA ([id number])[facility] (ALEX)[address] [place], [place] [address]Rhwmufvet neutrophils/100 WBC (Bld)56.0 %Fkzgrl22.0-80.0[facility] CenterComment on above: Result Comment: Percent differential counts (%) should be interpreted in the context of the absolute cell counts (cells/uL).Performed By: #### 52815-8 ####WIL O'VANDANA ([id number])[facility] (ALEX)[address] [place], [place] [address]Gaqmtvqhims review Pathologist comment (Bld) [Interp]on 81-58-7234YYTY REVIEW-CBC DIFFERENTIALPancytopenia. Clinical correlation is recommended.[facility] Health CenterComment on above: Result Comment: .By the signature on this report, the individual or group listed as making the Final Interpretation/Diagnosis certifies that they have reviewed this case.Performed By: #### 04489-3 ####ARNULFO Roger ([id number])[facility] ([facility])[address] [place], [place] [address]WGE W Auto Differential panel (Bld)on 34-50-7618Dniywvkuy (Bld) [#/Vol]0.00 x10*3/uLNormal0.00-0.10UnCleveland Clinic Mercy HospitalComment on above:Performed By: #### 64157-9 ####WIL HOLBROOK ([id number])[facility] (ALEX)[address] [place], [place] [address]Rwzjjtaeh/100 WBC (Bld)0.0 %Normal0.0-2.0UnCleveland Clinic Mercy HospitalComment on above:Performed By: #### 28099-4 ####WIL HOLBROOK ([id number])[facility] (ALEX)[address] [place], [place] [address]Mzlnbsljuhn (Bld) [#/Vol]0.07 x10*3/uLNormal0.00-0.70 [facility] CenterComment on above:Result Comment: Automated WBC differential has been confirmed by manual smear.Performed By: #### 12858-4 ####WIL HOLBROOK ([id number])[facility] (ALEX)[address] [place], [place] [address]Gpyzncyzhtr/100 WBC (Bld)3.6 %Normal0.0-6.0 [facility] CenterComment on above:Performed By: #### 32906-8 ####WIL HOLBROOK ([id number])[facility] (ALEX)[address] [place], [place] [address]Zdaosyhwycq distribution width (RBC) [Ratio]17.1 % High11.5-14.5UnCleveland Clinic Mercy HospitalComment on above: Performed By: #### 88094-4 ####WIL HOLBROOK ([id number])[facility] (ALEX)[address] [place], [place] [address]Ckleptjonf (Bld) [Volume fraction] 27.2 %Low36.0-46.0[facility] CenterComment on above: Performed By: #### 03556-9 ####WIL HOLBROOK ([id number])[facility] (ALEX)[address] [place], [place] [address]Hbwlfpjnjl (Bld) [Mass/Vol]8.5 g/dL Low12.0-16.0[facility] CenterComment on above: Performed By: #### 06319-2 ####WIL HOLBROOK ([id number])[facility] (ALEX)[address] [place], [place] [address]Obgepxlh granulocytes (Bld) [#/Vol] 0.01 x10*3/uLNormal0.00-0.70[facility] CenterComment on above:Performed By: #### 71920-1 ####WIL HOLBROOK ([id number])[facility] (ALEX)[address] [place], [place] [address]Ydyjjzlr granulocytes/100 WBC (Bld)0.5 %Normal0.0-0.9UnCleveland Clinic Mercy HospitalComment on above:Result Comment: Immature Granulocyte Count (IG) includes promyelocytes, myelocytes and metamyelocytes but does not include bands. Percent differential counts (%) should be interpreted in the context of the absolute cell counts (cells/UL).Performed By: #### 12669-5 ####WIL HOLBROOK ([id number])[facility] (ALEX)[address] [place], [place] [address]Smlybwqbugt (Bld) [#/Vol]0.63 x10*3/uLLow1.20-4.80[facility] CenterComment on above:Performed By: #### 51992-3 ####WIL HOLBROOK ([id number])[facility] (ALEX)[address] [place], [place] [address]Sdkxdkkklmp/100 WBC (Bld)32.3 %Besvua07.0-44.0[facility] CenterComment on above:Performed By: #### 26005-1 ####WIL Villalobos'VANDANA ([id number])[facility] (ALEX)[address] [place], [place] [address]CCH (RBC) [Entitic mass]27.7 ihIsgfwr06.0-34.0UnCleveland Clinic Mercy HospitalComment on above:Performed By: #### 98097-2 ####WIL Villalobos'VANDANA ([id number])[facility] (ALEX)[address] [place], [place] [address]WSLF (RBC) [Mass/Vol]31.3 g/dLLow32.0-36.0UnCleveland Clinic Mercy HospitalComment on above:Performed By: #### 16265-1 ####WIL Villalobos'VANDANA ([id number])[facility] (ALEX)[address] [place] [address] MCV (RBC) [Entitic vol]89 oOJaahah19-253GsjykocottCleveland Clinic Mercy HospitalComment on above:Performed By: #### 52909-2 ####WIL Villalobos'VANDANA ([id number])[facility] (ALEX)[address] [place], [place] [address]Nyogxwdeu (Bld) [#/Vol]0.34 x10*3/uLNormal0.10-1.00[facility] CenterComment on above:Performed By: #### 26740-9 ####WIL Villalobos'VANDANA ([id number])[facility] (ALEX)[address] [place] [address] Monocytes/100 WBC (Bld)17.4 %Normal2.0-10.0[facility] CenterComment on above:Performed By: #### 53716-1 ####WIL Villalobos'VANDANA ([id number])[facility] ([place])[address] [place] [address] Neutrophils (Bld) [#/Vol]0.90 x10*3/uLLow1.20-7.70[facility] CenterComment on above:Result Comment: Percent differential counts (%) should be interpreted in the context of the absolute cell counts (cells/uL). Performed By: #### 07472-3 ####WIL Villalobos'VANDANA ([id number])[facility] ([place])[address] [place], [place] [address]Dvmqqndrzhh/100 WBC (Bld)46.2 % Osbqfc48.0-80.0[facility] CenterComment on above: Performed By: #### 59742-8 ####WIL Villalobos'VANDANA ([id number])[facility] ([place])[address] [place], [place] [address]Aqbnmhebn RBC/100 WBC (Bld) [Ratio] 0.0 /100 WBCsNormal0.0-0.0[facility] CenterComment on above:Performed By: #### 86415-1 ####WIL Villalobos'VANDANA ([id number])[facility] ([place])[address] [place], [place] [address]Uefepstfb (Bld) [#/Vol]49 x10*3/dKLix509-454CxkrcldsmsCleveland Clinic Mercy HospitalComment on above:Performed By: #### 85278-8 ####WIL Villalobos'VANDANA ([id number])[facility] ([place])[address] [place], [place] [address]KPQ (Bld) [#/Vol]3.07 x10*6/uLLow4.00-5.20[facility] CenterComment on above:Performed By: #### 35063-2 ####WIL Villalobos'VANDANA ([id number])[facility] ([place])[address] [place], [place] [address]FZY (Bld) [#/Vol]2.0 x10*3/uLLow4.4-11.3[facility] CenterComment on above:Performed By: #### 74697-0 ####WIL HOLBROOK ([id number])[facility] ([place])[address] [place], [place] [address]Jlacrxybddjsz metabolic 2000 panelon 92-75-1895Njnyxud BCP dye [Mass/Vol]3.2 g/dLLow3.4-5.0[facility] CenterComment on above:Performed By: #### 09526-1 ####WIL HOLBROOK ([id number])[facility] ([place])[address] [place], [place] [address]TAC [Catalytic activity/Vol]87 U/NXttuff34-512XfveffewcdCleveland Clinic Mercy HospitalComment on above:Performed By: #### 30250-9 ####WIL HOLBROOK ([id number])[facility] ([place])[address] [place], [place] [address]EXZ With P-5'-P [Catalytic activity/Vol]19 U/LNormal7-45 [facility] CenterComment on above:Result Comment: Patients treated with Sulfasalazine may generate falsely decreased results for ALT.Performed By: #### 28823-7 ####WIL HOLBROOK ([id number])[facility] ([place])[address] [place], [place] [address]Xzfvk gap [Moles/Vol]10 mmol/QMykbhf13-71UmassqttxeCleveland Clinic Mercy HospitalComment on above: Performed By: #### [id number] ####WIL HOLBROOK ([id number])[facility] (ALEX)[address] [place], [place] [address]CKM With P-5'-P [Catalytic activity/Vol]27 U/LNormal9-39[facility] Comment on above:Performed By: #### 71871-2 ####WIL Villalobos'VANDANA ([id number])[facility] (ALEX)[address] [place], [place] [address]Vkwbcoxhe [Mass/Vol]0.8 mg/dLNormal0.0-1.2[facility] Comment on above:Performed By: #### 87347-4 ####WIL Villalobos'VANDANA ([id number])[facility] (ALEX)[address] [place], [place] [address]Srakajd [Mass/Vol]8.4 mg/dLLow8.6-10.3[facility] Comment on above:Performed By: #### 13780-1 ####WIL Villalobos'VANDANA ([id number])[facility] (ALEX)[address] [place], [place] [address]Bpgkzaca [Moles/Vol]107 mmol/IVufrcf10-642AcvfkejgdqSouthview Medical Center Comment on above:Performed By: #### 47659-6 ####WIL Villalobos'VANDANA ([id number])[facility] (ALEX)[address] [place], [place] [address]XQ3 [Moles/Vol]28 mmol/DCreacy86-92LkemfchieiSouthview Medical Center Comment on above:Performed By: #### 89095-2 ####WIL Villalobos'VANDANA ([id number])[facility] (ALEX)[address] [place], [place] [address]Wdvsxtppze [Mass/Vol]0.65 mg/dLNormal0.50-1.05[facility] Comment on above:Performed By: #### 72256-2 ####WIL Villalobos'VANDANA ([id number])[facility] (ALEX)[address] [place], [place] [address]MKU/1.73 sq M.predicted MDRD (S/P/Bld) [Vol rate/Area]mL/min/{1.73_m2}Normal>60UnCleveland Clinic Mercy HospitalComment on above:Result Comment: Calculations of estimated GFR are performed using the 2020 CKD-EPI Study Refit equation without the race variable for the IDMS-Traceable creatinine methods.https://jasn.asnjournals.org/content//ASN.9764026846 Performed By: #### 18215-8 ####WIL HOLBROOK ([id number])[facility] (ALEX)[address] [place], [place] [address]Dvdeixk [Mass/Vol]97 mg/dLNormal 74-99UnCleveland Clinic Mercy HospitalComment on above:Performed By: #### 57715-7 ####WIL HOLBROOK ([id number])[facility] (ALEX)[address] [place], [place] [address]Awkalmuco [Moles/Vol]4.1 mmol/LNormal 3.5-5.3UnCleveland Clinic Mercy HospitalComment on above:Performed By: #### 32132-5 ####WIL HOLBROOK ([id number])[facility] (ALEX)[address] [place], [place] [address]Ujzmixj [Mass/Vol]4.7 g/dLLow6.4-8.2 [facility] CenterComment on above:Performed By: #### 45691-3 ####WIL HOLBROOK ([id number])[facility] (ALEX)[address] [place], [place] [address]Jcvdei [Moles/Vol]141 mmol/NFhuuku925-847VqumrsvuffCleveland Clinic Mercy HospitalComment on above:Performed By: #### 20176-9 ####WIL HOLBROOK ([id number])[facility] (ALEX)[address] [place], [place] [address]Reuo nitrogen [Mass/Vol]17 mg/dLNormal6-23UnCleveland Clinic Mercy HospitalComment on above:Performed By: #### 54304-0 ####WIL O'VANDANA ([id number])[facility] (ALEX)[address] [place], [place] [address]ODM shape Nom (Bld)on 11-08-5622Nmhd cells LM Ql (Bld)[facility] HospitalComment on above:Performed By: #### 00153-2 ####WIL O'VANDANA ([id number])[facility] (ALEX)[address] [place], [place] [address]Pqijhphhfn LM Ql (Bld)[facility] HospitalComment on above:Performed By: #### 49383-0 ####WIL O'VANDANA ([id number])[facility] (ALEX)[address] [place], [place] [address]Nisfennncp LM Ql (Bld)[facility] DaytonComment on above:Performed By: #### 84784-9 ####WIL O'VANDANA ([id number])[facility] (ALEX)[address] [place], [place] [address]Zqxjdpylyoqgw LM Ql (Bld)[facility] HospitalComment on above:Performed By: #### 90956-6 ####WIL O'VANDANA ([id number])[facility] (ALEX)[address] [place] [address] RBC morphology finding Nom (Bld)See [facility] HospitalComment on above:Performed By: #### 24199-2 ####WIL O'VANDANA ([id number])[facility] (ALEX)[address] [place] [address] C-reactive proteinon 01-60-7933JHQ [Mass/Vol]0.13 mg/dLNINF - 1.00 mg/dL [facility] HospitalCB W Auto Differential panel (Bld)on 91-33-1218Kliujhhguni distribution width (RBC) [Ratio]16.4 %High11.5 - 14.5 % [facility] HospitalHematocrit (d) [Volume fraction]28.7 %Low36.0 - 46.0 %[facility] HospitalHemoglobin (Bld) [Mass/Vol]8.7 g/dLLow 12.0 - 16.0 g/dLUnTrinity Health System Twin City Medical CenterImmaselect medical specialty [facility] granulocytes (Bld) [#/Vol]0.04 10*3/uLUnTrinity Health System Twin City Medical CenterImhannibal regional hospital granulocytes/100 WBC (Bld)3.0 %High0.0 - 0.9 %[facility] HospitalComment on above: Immature Granulocyte Count (IG) includes promyelocytes, myelocytes and metamyelocytes but does not include bands. Percent differential counts (%) should be interpreted in the context of the absolute cell counts (cells/UL).MCH (RBC) [Entitic mass]27.4 pg26.0 - 34.0 pgUnTrinity Health System Twin City Medical CenterMCHC (RBC) [Mass/Vol]30.3 g/dLLow32.0 - 36.0 g/dLChillicothe HospitalMCV (RBC) [Entitic vol]90 fL80 - 100 fLUniTriHealth McCullough-Hyde Memorial HospitalNucleated RBC/100 WBC (Bld) [Ratio]0.0 %[facility] HospitalPlatelets (Bld) [#/Vol]30 10*3/uLCritically lowUnTrinity Health System Twin City Medical CenterRBC (Bld) [#/Vol]3.18 10*6/uLLowUnTrinity Health System Twin City Medical CenterWBC (Bld) [#/Vol]1.3 10*3/uLOhio State Health SystemFerritinon 85-24-1024Hlkbavjn [Mass/Vol]27 ng/mL8 - 150 ng/mLUnTrinity Health System Twin City Medical CenterFibrinogenon 70-64-1975Usjffpchxd Coag (PPP) [Mass/Vol]162 mg/rKTlz110 - 400 mg/dLChillicothe HospitalFibrinogen Coag (PPP) [Mass/Vol]on 11-25-2023 Interpretation and review of laboratory resultsAbnormalUniRegency Hospital CompanyGlucose Test strip manual (Bld) [Mass/Vol]on 28-73-5944Kucybat [Mass/Vol]91 mg/dL74 - 99 mg/dLUnTrinity Health System Twin City Medical CenterInterpretation and review of laboratory resultsNormal [facility] HospitalUnTrinity Health System [facility] Medical CenterLactate Dehydrogenaseon 14-87-6670TWQ Lactate to pyruvate reaction [Catalytic activity/Vol]245 U/L84 - 246 U/LUnTrinity Health System Twin City Medical CenterMagnesiumon 50-47-4382Tatmmdcit [Mass/Vol]1.78 mg/dL1.60 - 2.40 mg/dLUnTrinity Health System Twin City Medical CenterManual differential performed Ql (Bld)on 79-84-4939Necimznib (Bld) [#/Vol]0.00 10*3/[facility] HospitalBasophils/100 WBC (Bld)0.0 % 0.0 - 2.0 %[facility] HospitalCells Counted Total (Bld) [#]116 {cells}[facility] HospitalDacrocytes LM Ql (Bld)[facility] SouthwoodsEosinophils (Bld) [#/Vol]0.03 10*3/[facility] HospitalEosinophils/100 WBC (Bld)2.6 %0.0 - 6.0 %[facility] HospitalLymphocytes (Bld) [#/Vol]0.20 10*3/[facility] HospitalLymphocytes/100 WBC (Bld)15.5 %13.0 - 44.0 %[facility] HospitalMonocytes (Bld) [#/Vol]0.08 10*3/[facility] Monocytes/100 WBC (Bld)6.0 %2.0 - 10.0 %[facility] HospitalRBC morphology finding Nom (Bld)See BelowChillicothe HospitalSegmented neutrophils (Bld) [#/Vol]0.99 10*3/[facility] Segmented neutrophils/100 WBC (Bld)75.9 %40.0 - 80.0 %[facility] HospitalComment on above:Percent differential counts (%) should be interpreted in the context of the absolute cell counts (cells/uL).No Panel Informationon 60-92-6535Cromqlvlqnoaie and review of laboratory resultsAbnoKettering Health HamiltonUnTrinity Health System Twin City Medical CenterInterpretation and review of laboratory resultsNoKettering Health HamiltonUnTrinity Health System Twin [facility] Medical CenterRenal function 2000 panelon 79-97-7646Jkeuowc BCP dye [Mass/Vol]3.2 g/dLLow3.4 - 5.0 g/dLUnTrinity Health System Twin City Medical CenterAnion gap [Moles/Vol]11 mmol/L10 - 20 mmol/[facility] CenterCalcium [Mass/Vol]8.3 mg/dLLow8.6 - 10.6 mg/dLUnTrinity Health System Twin City Medical CenterChloride [Moles/Vol]106 mmol/L98 - 107 mmol/[facility] CenterCO2 [Moles/Vol]27 mmol/L21 - 32 mmol/[facility] CenterCreatinine [Mass/Vol]0.54 mg/dL0.50 - 1.05 mg/dLUnTrinity Health System Twin City Medical CentereGFR- PINF [facility] on above:Calculations of estimated GFR are performed using the 2020 CKD-EPI Study Refit equation without therace variable for the IDMS-Traceable creatinine methods. https://jasn.asnjournals.org/content//ASN.5011148842 Glucose [Mass/Vol]120 mg/mEWbsq13 - 99 mg/dLUnTrinity Health System [facility] Center Interpretation and review of laboratory resultsAbMiami Valley HospitalPhosphate [Mass/Vol]3.6 mg/dL2.5 - 4.9 mg/dLFirelands Regional Medical Center South Campus on above:The performance characteristics of phosphorus testing in heparinized plasma have been validated by the individual laboratory site where testing is performed. Testing on heparinized plasma is not approved by the FDA; however, such approval is not necessary.Potassium [Moles/Vol]3.9 mmol/L3.5 - 5.3 mmol/[facility] CenterSodium [Moles/Vol]140 mmol/L136 - 145 mmol/[facility] CenterUrea nitrogen [Mass/Vol]23 mg/dL6 - 23 mg/dLChillicothe HospitalUric Acidon 52-66-8893Xgsqo [Mass/Vol] 3.5 mg/dL2.3 - 6.7 mg/dLUnRegional Medical Center on above: Venipuncture immediately after or during the administration of Metamizole may lead to falsely low results. Testing should be performed immediately prior to Metamizole dosing. C-reactive proteinon 17-80-4257KIH [Mass/Vol]0.12 mg/dLNINF - 1.00 mg/dL [facility] HospitalCB W Auto Differential panel (Bld)on 03-92-7630Mfwnpgdegsh distribution width (RBC) [Ratio]16.2 %High11.5 - 14.5 % [facility] HospitalHematocrit (Bld) [Volume fraction]27.7 %Low36.0 - 46.0 %[facility] HospitalHemoglobin (Bld) [Mass/Vol]8.4 g/dLLow 12.0 - 16.0 g/dLUnTrinity Health System Twin City Medical CenterImhannibal regional hospital granulocytes (Bld) [#/Vol]0.06 10*3/uLRegency Hospital Cleveland West granulocytes/100 WBC (Bld)4.5 %High0.0 - 0.9 %[facility] on above: Immature Granulocyte Count (IG) includes promyelocytes, myelocytes and metamyelocytes but does not include bands. Percent differential counts (%) should be interpreted in the context of the absolute cell counts (cells/UL).MCH (RBC) [Entitic mass]27.6 pg26.0 - 34.0 pgUnTrinity Health System Twin City Medical CenterMCHC (RBC) [Mass/Vol]30.3 g/dLLow32.0 - 36.0 g/dLUnSt. Vincent HospitalV (RBC) [Entitic vol]91 fL80 - 100 fLUniTriHealth McCullough-Hyde Memorial HospitalNucleated RBC/100 WBC (Bld) [Ratio]0.0 %[facility] HospitalPlatelets (Bld) [#/Vol]29 10*3/uLCritically lowUnTrinity Health System Twin City Medical CenterRBC (Bld) [#/Vol]3.04 10*6/uLLowUniversity Hospitals of ClevelandWBC (Bld) [#/Vol]1.3 10*3/uLLowUnTrinity Health System Twin City Medical CenterThe previously reported component Neutrophils % is no [...] component Absolute Basophils is no longer being reported.[facility] HospitalFerritinon 55-19-6462Odormwsl [Mass/Vol]24 ng/mL8 - 150 ng/mL [facility] HospitalFerritin [Mass/Vol]on 02-93-7986Cdrjsuudeclfsy and review of laboratory resultsNoKettering Health Hamilton FibrinogenOrdered By: Jennie Bishop on 09-79-3680Vckslvlojr Coag (PPP) [Mass/Vol]281 mg/dL200 - 400 mg/dLUnTrinity Health System Twin City Medical CenterFibrinogen Coag (PPP) [Mass/Vol]Ordered By: Jennie Bishop on 80-17-4648Dfymolnlgisvpt and review of laboratory resultsNoKettering Health HamiltonUnTrinity Health System Twin City Medical CenterGlucose Test strip manual (Bld) [Mass/Vol]on 11-24-2023 Glucose [Mass/Vol]134 mg/oRZwhq92 - 99 mg/dLUnTrinity Health [facility] Interpretation and review of laboratory resultsAbnoDetwiler Memorial HospitalGlucose [Mass/Vol]146 mg/iJYtyp27 - 99 mg/dLUnTrinity Health System [facility] Medical CenterInterpretation and review of laboratory resultsAbTrumbull Memorial HospitalGlucose [Mass/Vol]117 mg/uSYnyo31 - 99 mg/dLUnTrinity Health System [facility] Medical CenterInterpretation and review of laboratory resultsAbTrumbull Memorial HospitalGlucose [Mass/Vol]86 mg/dL74 - 99 mg/dLUnTrinity Health System [facility] Medical CenterInterpretation and review of laboratory resultsNoKettering Health HamiltonUnTrinity Health System [facility] Medical CenterHepatic function 2000 panelon 28-49-6809Gahuhda BCP dye [Mass/Vol]3.2 g/dLLow3.4 - 5.0 g/dLUnTrinity Health System Twin City Medical CenterALP [Catalytic activity/Vol]76 U/L33 - 136 U/[facility] CenterALT With P-5'-P [Catalytic activity/Vol]29 U/L7 - 45 U/[facility] CenterComment on above:Patients treated with Sulfasalazine may generate falsely decreased results for ALT.AST With P-5'-P [Catalytic activity/Vol]36 U/L9 - 39 U/L [facility] HospitalBilirubin [Mass/Vol]0.6 mg/dL0.0 - 1.2 mg/dL [facility] HospitalBilirubin.direct [Mass/Vol]0.2 mg/dL0.0 - 0.3 mg/dLUnTrinity Health System Twin City Medical CenterInterpretation and review of laboratory resultsAbnoKettering Health HamiltonProtein [Mass/Vol]4.7 g/dLLow6.4 - 8.2 g/dLUnTrinity Health System Twin City Medical CenterUnTrinity Health System [facility] City Medical CenterLD Lactate to pyruvate reaction [Catalytic activity/Vol]on 11-24-2023 Interpretation and review of laboratory resultsAbMiami Valley HospitalLactate Dehydrogenaseon 04-13-3696WAI Lactate to pyruvate reaction [Catalytic activity/Vol]270 U/LHigh84 - 246 U/[facility] Magnesiumon 03-88-1746Tlqewvxja [Mass/Vol]1.98 mg/dL1.60 - 2.40 mg/dLUnTrinity Health System Twin City Medical CenterManual differential performed Ql (Bld)on 11-24-2023 Basophils (Bld) [#/Vol]0.00 10*3/[facility] Basophils/100 WBC (Bld)0.0 %0.0 - 2.0 %[facility] HospitalCells Counted Total (Bld) [#]114 {cells}[facility] HospitalEosinophils (Bld) [#/Vol]0.01 10*3/[facility] HospitalEosinophils/100 WBC (Bld)0.9 %0.0 - 6.0 %[facility] HospitalLymphocytes (Bld) [#/Vol] 0.17 10*3/[facility] HospitalLymphocytes/100 WBC (Bld)13.2 % 13.0 - 44.0 %[facility] HospitalMonocytes (Bld) [#/Vol]0.08 10*3/[facility] HospitalMonocytes/100 WBC (Bld)6.1 %2.0 - 10.0 %[facility] HospitalOvalocytes LM Ql (Bld)[facility] HospitalUnTrinity Health System [facility] Medical CenterRB morphology finding Nom (Bld)See BelowUnTrinity Health System Twin City Medical CenterSegmented neutrophils (Bld) [#/Vol]1.04 10*3/[facility] HospitalSegmohio state harding hospital neutrophils/100 WBC (Bld)79.8 %40.0 - 80.0 %[facility] on above:Percent differential counts (%) should be interpreted in the context of the absolute cell counts (ce lls/uL).No Panel Informationon 23-01-5848GevblwdfcvMercer County Community HospitalInterpretation and review of laboratory results NormalUnTrinity Health System Twin City Medical CenterInterpretation and review of laboratory resultsAbnormalUniRegency Hospital CompanyRenal function 1999 panelon 42-87-2858Lhpwgdv BCP dye [Mass/Vol]3.2 g/dLLow3.4 - 5.0 g/dLUnTrinity Health System Twin City Medical CenterAnion gap [Moles/Vol]10 mmol/L10 - 20 mmol/[facility] CenterCalcium [Mass/Vol]8.3 mg/dL Low8.6 - 10.6 mg/dLChillicothe HospitalChloride [Moles/Vol]107 mmol/L98 - 107 mmol/[facility] CenterCO2 [Moles/Vol]27 mmol/L21 - 32 mmol/[facility] CenterCreatinine [Mass/Vol]0.61 mg/dL0.50 - 1.05 mg/dLChillicothe HospitaleGFR- PINFUniParkview Health on above:Calculations of estimated GFR are performed using the 2020 CKD-EPI Study Refit equation without therace variable for the IDMS- Traceable creatinine methods. https://jasn.asnjournals.org/content//ASN.6012224011 Glucose [Mass/Vol]175 mg/wOJtay05 - 99 mg/dLUnTrinity Health System [facility] Interpretation and review of laboratory resultsAbnormalUniTriHealth McCullough-Hyde Memorial HospitalPhosphate [Mass/Vol]2.7 mg/dL2.5 - 4.9 mg/dLUnRegional Medical Center on above:The performance characteristics of phosphorus testing in heparinized plasma have been validated by the individual laboratory site where testing is performed. Testing on heparinized plasma is not approved by the FDA; however, such approval is not necessary.Potassium [Moles/Vol]3.5 mmol/L3.5 - 5.3 mmol/[facility] CenterSodium [Moles/Vol]140 mmol/L136 - 145 mmol/[facility] CenterUrea nitrogen [Mass/Vol]21 mg/dL6 - 23 mg/dLUnTrinity Health System Twin City Medical CenterUric Acidon 94-92-4765Ttngd [Mass/Vol] 3.5 mg/dL2.3 - 6.7 mg/dLUnRegional Medical Center on above: Venipuncture immediately after or during the administration of Metamizole may lead to falsely low results. Testing should be performed immediately prior to Metamizole dosing. C-reactive proteinon 97-20-7652AVD [Mass/Vol]0.12 mg/dLNINF - 1.00 mg/dL [facility] HospitalCB W Auto Differential panel (Bld)on 57-26-6268Xjhkrymuh (Bld) [#/Vol]0.00 10*3/[facility] Basophils/100 WBC (Bld)0.0 %0.0 - 2.0 %[facility] Eosinophils (Bld) [#/Vol]0.02 10*3/uLChillicothe Hospital Eosinophils/100 WBC (Bld)2.1 %0.0 - 6.0 %[facility] Erythrocyte distribution width (RBC) [Ratio]16.3 %High11.5 - 14.5 %[facility] HospitalHematocrit (Bld) [Volume fraction]30.2 %Low36.0 - 46.0 % [facility] HospitalHemoglobin (Bld) [Mass/Vol]9.5 g/dLLow12.0 - 16.0 g/dLUnTrinity Health System Twin City Medical CenterImmaselect medical specialty [facility] granulocytes (Bld) [#/Vol] 0.13 10*3/uLUnTrinity Health System Twin City Medical CenterImhannibal regional hospital granulocytes/100 WBC (Bld) 13.4 %High0.0 - 0.9 %[facility] on above:Immature Granulocyte Count (IG) includes promyelocytes, myelocytes and metamyelocytes but does not include bands. Percent differential counts (%) should be interpreted in the context of the absolute cell counts (cells/UL).Interpretation and review of laboratory resultsAbnormalUniTriHealth McCullough-Hyde Memorial HospitalLymphocytes (Bld) [#/Vol]0.20 10*3/uLLowUnTrinity Health System Twin City Medical CenterLymphocytes/100 WBC (Bld) 20.6 %13.0 - 44.0 %[facility] CenterH (RBC) [Entitic mass]28.8 pg26.0 - 34.0 pgUnSt. Vincent HospitalHC (RBC) [Mass/Vol]31.5 g/dL Low32.0 - 36.0 g/dLWexner Medical CenterV (RBC) [Entitic vol]92 fL 80 - 100 fLUniTriHealth McCullough-Hyde Memorial HospitalMonocytes (Bld) [#/Vol]0.06 10*3/uL LowUnTrinity Health System Twin City Medical CenterMonocytes/100 WBC (Bld)6.2 %2.0 - 10.0 % [facility] HospitalNeutrophils (Bld) [#/Vol]0.56 10*3/uLLow [facility] on above:Percent differential counts (%) should be interpreted in the context of the absolute cell counts (cells/uL). Neutrophils/100 WBC (Bld)57.7 %40.0 - 80.0 %[facility] Nucleated RBC/100 WBC (Bld) [Ratio]0.0 %[facility] Platelets (Bld) [#/Vol]27 10*3/uLCritically lowUnTrinity Health System [facility] RBC (Bld) [#/Vol]3.30 10*6/uLOhio State Health SystemWBC (Bld) [#/Vol]1.0 10*3/uLCritically TriHealthFerritinon 11-08-3381Fanhdaxc [Mass/Vol]29 ng/mL8 - 150 ng/mLChillicothe HospitalFerritin [Mass/Vol]on 64-14-8840Nsgddjqaiuumwj and review of laboratory resultsNoKettering Health HamiltonFibrinogenon 15-64-5547Ullpokzrfm Coag (PPP) [Mass/Vol]163 mg/gXSac073 - 400 mg/dLChillicothe HospitalFikansas city va medical center Coag (PPP) [Mass/Vol]on 84-80-7228Mtmirillvbuggb and review of laboratory resultsAbnoDetwiler Memorial HospitalGlucose Test strip manual (Bld) [Mass/Vol]on 11-23-2023 Glucose [Mass/Vol]125 mg/dTLzsr62 - 99 mg/dLChillicothe Hospital Interpretation and review of laboratory resultsAbTrumbull Memorial HospitalGlucose [Mass/Vol]124 mg/oAAmok28 - 99 mg/dLChillicothe HospitalInterpretation and review of laboratory resultsAbTrumbull Memorial HospitalGlucose [Mass/Vol]149 mg/qYHxem34 - 99 mg/dLChillicothe HospitalInterpretation and review of laboratory resultsAbnoDetwiler Memorial HospitalLD Lactate to pyruvate reaction [Catalytic activity/Vol]on 74-99-1646Sggoklxlkcwvdg and review of laboratory resultsAbMiami Valley HospitalLactate Dehydrogenase on 23-04-0715RDI Lactate to pyruvate reaction [Catalytic activity/Vol]255 U/L High84 - 246 U/LUnTrinity Health System Twin City Medical CenterMagnesiumon 91-94-7907Kefkfadjr [Mass/Vol]1.78 mg/dL1.60 - 2.40 mg/dLUnTrinity Health System Twin City Medical CenterNo Panel Informationon 08-96-7882OoehnroawvTrinity Health System Twin City Medical CenterInterpretation and review of laboratory resultsNoKettering Health HamiltonUnTrinity Health System [facility] City Medical CenterUnTrinity Health System [facility] Medical CenterRB shape Nom (Bld)on 20-63-9026Sgyhjckjdn LM Ql (Bld)FewUnKindred Hospital Lima morphology finding Nom (Bld)See BelowUnTrinity Health System Twin City Medical CenterRenal function 2000 panelon 41-92-8281Rbavpri BCP dye [Mass/Vol]3.3 g/dLLow3.4 - 5.0 g/dLUnTrinity Health System Twin City Medical CenterAnion gap [Moles/Vol]11 mmol/L10 - 20 mmol/[facility] CenterCalcium [Mass/Vol]8.5 mg/dLLow8.6 - 10.6 mg/dLUnTrinity Health System Twin City Medical CenterChloride [Moles/Vol]106 mmol/L98 - 107 mmol/[facility] CenterCO2 [Moles/Vol]27 mmol/L21 - 32 mmol/L [facility] HospitalCreatinine [Mass/Vol]0.55 mg/dL0.50 - 1.05 mg/dLUnTrinity Health System Twin City Medical CentereGFR- PINFUniParkview Health on above:Calculations of estimated GFR are performed using the 2020 CKD-EPI Study Refit equation without therace variable for the IDMS- Traceable creatinine methods. https://jasn.asnjournals.org/content//ASN.7805889687 Glucose [Mass/Vol]178 mg/wWFlon66 - 99 mg/dLUnTrinity Health System [facility] Interpretation and review of laboratory resultsAbnoKettering Health HamiltonPhosphate [Mass/Vol]3.5 mg/dL2.5 - 4.9 mg/dLUnRegional Medical Center on above:The performance characteristics of phosphorus testing in heparinized plasma have been validated by the individual laboratory site where testing is performed. Testing on heparinized plasma is not approved by the FDA; however, such approval is not necessary.Potassium [Moles/Vol]4.0 mmol/L3.5 - 5.3 mmol/[facility] CenterSodium [Moles/Vol]140 mmol/L136 - 145 mmol/[facility] CenterUrea nitrogen [Mass/Vol]22 mg/dL6 - 23 mg/dLChillicothe HospitalUric Acidon 76-07-6804Pepiu [Mass/Vol] 4.0 mg/dL2.3 - 6.7 mg/dLFirelands Regional Medical Center South Campus on above: Venipuncture immediately after or during the administration of Metamizole may lead to falsely low results. Testing should be performed immediately prior to Metamizole dosing. C-reactive proteinon 34-25-0780LJV [Mass/Vol]0.14 mg/dLNINF - 1.00 mg/dL [facility] HospitalCB W Auto Differential panel (Bld)on 02-04-9138Wlyrapukpjj distribution width (RBC) [Ratio]16.0 %High11.5 - 14.5 % [facility] HospitalHematocrit (Bld) [Volume fraction]28.8 %Low36.0 - 46.0 %[facility] HospitalHemoglobin (Bld) [Mass/Vol]9.0 g/dLLow 12.0 - 16.0 g/dLUnTrinity Health System Twin City Medical CenterImhannibal regional hospital granulocytes (Bld) [#/Vol]0.02 10*3/uLRegency Hospital Cleveland West granulocytes/100 WBC (Bld)1.3 %High0.0 - 0.9 %[facility] on above: Immature Granulocyte Count (IG) includes promyelocytes, myelocytes and metamyelocytes but does not include bands. Percent differential counts (%) should be interpreted in the context of the absolute cell counts (cells/UL).MCH (RBC) [Entitic mass]28.6 pg26.0 - 34.0 pgUnTrinity Health System Twin City Medical CenterMCHC (RBC) [Mass/Vol]31.3 g/dLLow32.0 - 36.0 g/dLWexner Medical CenterV (RBC) [Entitic vol]91 fL80 - 100 fLUniTriHealth McCullough-Hyde Memorial HospitalNucleated RBC/100 WBC (Bld) [Ratio]0.0 %[facility] HospitalPlatelets (Bld) [#/Vol]30 10*3/uLCritically lowChillicothe HospitalRBC (Bld) [#/Vol]3.15 10*6/[facility] HospitalWBC (Bld) [#/Vol]1.6 10*3/[facility] HospitalThe previously reported component Neutrophils % is [...] component Absolute Basophils is no longer being reported.[facility] HospitalFerritinon 22-91-1342Rikpaofw [Mass/Vol]33 ng/mL8 - 150 ng/mL [facility] HospitalFibrinogenon 65-69-2404Qlqsmzjxbl Coag (PPP) [Mass/Vol]170 mg/uREim065 - 400 mg/dLUnTrinity Health System Twin City Medical CenterFibrinogen Coag (PPP) [Mass/Vol]on 69-05-6422Lqfjrnzpfuzxll and review of laboratory resultsAbnoDetwiler Memorial HospitalGlucose Test strip manual (d) [Mass/Vol]on 39-87-0410Ukqfntl [Mass/Vol]116 mg/xHGhki46 - 99 mg/dLUnTrinity Health System [facility] Interpretation and review of laboratory resultsAbnoDetwiler Memorial HospitalGlucose [Mass/Vol]122 mg/xISofb91 - 99 mg/dLUnTrinity Health System Twin City Medical CenterInterpretation and review of laboratory resultsAbnoDetwiler Memorial HospitalGlucose [Mass/Vol]95 mg/dL74 - 99 mg/dLUnTrinity Health System Twin City Medical CenterInterpretation and review of laboratory resultsNoDetwiler Memorial HospitalGlucose [Mass/Vol]80 mg/dL74 - 99 mg/dLUnTrinity Health System Twin City Medical CenterInterpretation and review of laboratory resultsNormalUniTriHealth McCullough-Hyde Memorial HospitalUnTrinity Health System Twin City Medical CenterLactate Dehydrogenaseon 24-95-0985OYN Lactate to pyruvate reaction [Catalytic activity/Vol]252 U/LHigh84 - 246 U/[facility] Magnesiumon 00-50-2695Maxyrdcay [Mass/Vol]1.72 mg/dL1.60 - 2.40 mg/dLChillicothe HospitalManual differential performed Ql (Bld)on 11-22-2023 Basophils (Bld) [#/Vol]0.00 10*3/[facility] Basophils/100 WBC (Bld)0.0 %0.0 - 2.0 %[facility] HospitalCells Counted Total (Bld) [#]99 {cells}[facility] HospitalEosinophils (Bld) [#/Vol]0.00 10*3/[facility] HospitalEosinophils/100 WBC (Bld)0.0 %0.0 - 6.0 %[place] HospitalLymphocytes (Bld) [#/Vol] 0.23 10*3/[facility] HospitalLymphocytes/100 WBC (Bld)14.1 % 13.0 - 44.0 %[facility] HospitalMonocytes (Bld) [#/Vol]0.16 10*3/[facility] HospitalMonocytes/100 WBC (Bld)10.1 %2.0 - 10.0 %[place] HospitalOvalocytes LM Ql (Bld)[facility] SouthwoodsRB morphology finding Nom (Bld)See BelowChillicothe HospitalSegmented neutrophils (Bld) [#/Vol]1.20 10*3/[facility] HospitalSesouthlake center for mental health neutrophils/100 WBC (Bld)74.8 %40.0 - 80.0 %[facility] HospitalComment on above:Percent differential counts (%) should be interpreted in the context of the absolute cell counts (cells/uL).Variant lymphocytes (Bld) [#/Vol]0.02 10*3/[facility] HospitalVariant lymphocytes/100 WBC (Bld)1.0 %0.0 - 2.0 %[facility] HospitalNo Panel Informationon 57-77-9093Gytjqzgdhzgyqy and review of laboratory results AbnormalUnTrinity Health System Twin City Medical CenterUnTrinity Health [facility] Interpretation and review of laboratory resultsAbnoKettering Health HamiltonInterpretation and review of laboratory resultsNoKettering Health HamiltonUnTrinity Health System [facility] City Medical CenterRenal function 2000 panel on 83-13-7384Ibzudfp BCP dye [Mass/Vol]3.2 g/dLLow3.4 - 5.0 g/dLUnTrinity Health System Twin City Medical CenterAnion gap [Moles/Vol]11 mmol/L10 - 20 mmol/[facility] CenterCalcium [Mass/Vol]8.5 mg/dLLow8.6 - 10.6 mg/dLUnTrinity Health System Twin City Medical CenterChloride [Moles/Vol]107 mmol/L98 - 107 mmol/[facility] CenterCO2 [Moles/Vol]27 mmol/L21 - 32 mmol/[facility] CenterCreatinine [Mass/Vol]0.60 mg/dL0.50 - 1.05 mg/dLUnTrinity Health System Twin City Medical CentereGFR- PINFUniTriHealth McCullough-Hyde Memorial HospitalComment on above:Calculations of estimated GFR are performed using the 2020 CKD-EPI Study Refit equation without therace variable for the IDMS-Traceable creatinine methods. https://jasn.asnjournals.org/content//ASN.8379496898 Glucose [Mass/Vol]129 mg/iDKzmp87 - 99 mg/dLUnTrinity Health System [facility] Center Phosphate [Mass/Vol]2.7 mg/dL2.5 - 4.9 mg/dLChillicothe Hospital Comment on above:The performance characteristics of phosphorus testing in heparinized plasma have been validated by the individual laboratory site where testing is performed. Testing on heparinized plasma is not approved by the FDA; however, such approval is not necessary.Potassium [Moles/Vol]3.6 mmol/L3.5 - 5.3 mmol/[facility] CenterSodium [Moles/Vol]141 mmol/L136 - 145 mmol/[facility] CenterUrea nitrogen [Mass/Vol]22 mg/dL6 - 23 mg/dLChillicothe HospitalUric Acidon 20-47-7174Nmkci [Mass/Vol] 3.9 mg/dL2.3 - 6.7 mg/dLUnTrinity Health System Twin City Medical CenterComment on above: Venipuncture immediately after or during the administration of Metamizole may lead to falsely low results. Testing should be performed immediately prior to Metamizole dosing. Blood type and Indirect antibody screen panel (Bld)on 53-78-5504SUO group Nom (Bld)AUnTrinity Health System Twin City Medical CenterBlood group antibody screen QlNegative [facility] HospitalD Ag Ql (Bld)PositiveUnTrinity Health System Twin City Medical CenterUnTrinity Health System [facility] Medical CenterC-reactive proteinon 58-67-6503QZQ [Mass/Vol]0.17 mg/dLNINF - 1.00 mg/dLUnTrinity Health System [facility] City Medical CenterCB W Auto Differential panel (Bld)on 69-21-6980Evwuzxxbg (Bld) [#/Vol]0.00 10*3/uL [facility] HospitalBasophils/100 WBC (Bld)0.0 %0.0 - 2.0 % [facility] HospitalEosinophils (Bld) [#/Vol]0.01 10*3/uLUnTrinity Health System Twin City Medical CenterEosinophils/100 WBC (Bld)0.8 %0.0 - 6.0 %[facility] HospitalErythrocyte distribution width (RBC) [Ratio]15.9 %High11.5 - 14.5 %[facility] HospitalHematocrit (Bld) [Volume fraction]31.2 %Low36.0 - 46.0 %[facility] HospitalHemoglobin (Bld) [Mass/Vol]9.4 g/dLLow12.0 - 16.0 g/dLUnTrinity Health System Twin City Medical CenterImmaselect medical specialty [facility] granulocytes (Bld) [#/Vol]0.13 10*3/uLUnTrinity Health System Twin City Medical CenterImhannibal regional hospital granulocytes/100 WBC (Bld)10.2 %High0.0 - 0.9 %[facility] Comment on above:Immature Granulocyte Count (IG) includes promyelocytes, myelocytes and metamyelocytes but does not include bands. Percent differential counts (%) should be interpreted in the context of the absolute cell counts (cells/UL).Interpretation and review of laboratory resultsAbnormalUniTriHealth McCullough-Hyde Memorial HospitalLymphocytes (Bld) [#/Vol]0.25 10*3/uLLowUnTrinity Health System Twin City Medical CenterLymphocytes/100 WBC (Bld)19.5 %13.0 - 44.0 %[facility] CenterH (RBC) [Entitic mass]27.6 pg26.0 - 34.0 pgUnTrinity Health System Twin City Medical CenterMCHC (RBC) [Mass/Vol]30.1 g/dLLow32.0 - 36.0 g/dL [facility] CenterV (RBC) [Entitic vol]92 fL80 - 100 fL [facility] HospitalMonocytes (Bld) [#/Vol]0.06 10*3/[facility] HospitalMonocytes/100 WBC (Bld)4.7 %2.0 - 10.0 % [facility] HospitalNeutrophils (Bld) [#/Vol]0.83 10*3/uLLow [facility] HospitalComment on above:Percent differential counts (%) should be interpreted in the context of the absolute cell counts (cells/uL). Neutrophils/100 WBC (Bld)64.8 %40.0 - 80.0 %[facility] Nucleated RBC/100 WBC (Bld) [Ratio]0.0 %[facility] Platelets (Bld) [#/Vol]29 10*3/uLCritically lowChillicothe Hospital RBC (Bld) [#/Vol]3.41 10*6/uLLowChillicothe HospitalWBC (Bld) [#/Vol]1.3 10*3/[facility] HospitalFerritinon 11-21-2023 Ferritin [Mass/Vol]32 ng/mL8 - 150 ng/mLUnTrinity Health System [facility] Center Ferritin [Mass/Vol]on 94-32-2530Zgathzajbivltz and review of laboratory results NormalChillicothe HospitalFibrinogenon 59-31-4916Dfcwwnnomh Coag (PPP) [Mass/Vol]196 mg/bIWfl002 - 400 mg/dLChillicothe Hospital Fibrinogen Coag (PPP) [Mass/Vol]on 77-56-1735Crvxgamepqwijo and review of laboratory resultsAbTrumbull Memorial HospitalGlucose Test strip manual (Bld) [Mass/Vol]on 24-25-5966Kgbyabv [Mass/Vol]155 mg/wMUvlz88 - 99 mg/dLUnTrinity Health System [facility] Interpretation and review of laboratory resultsAbTrumbull Memorial HospitalGlucose [Mass/Vol]99 mg/dL74 - 99 mg/dLUnTrinity Health System [facility] Medical CenterInterpretation and review of laboratory resultsNoDetwiler Memorial Hospital Glucose [Mass/Vol]260 mg/cPBmhq64 - 99 mg/dLUnTrinity Health [facility] Interpretation and review of laboratory resultsAbTrumbull Memorial HospitalGlucose [Mass/Vol]118 mg/sJFedq04 - 99 mg/dLUnTrinity Health System [facility] Medical CenterInterpretation and review of laboratory resultsAbTrumbull Memorial HospitalLDH Lactate to pyruvate reaction [Catalytic activity/Vol]on 11-21-2023 Interpretation and review of laboratory resultsAbMiami Valley HospitalLactate Dehydrogenaseon 71-26-2930BKL Lactate to pyruvate reaction [Catalytic activity/Vol]302 U/igh84 - 246 U/[facility] Magnesiumon 36-94-8485Gwaoasypu [Mass/Vol]1.68 mg/dL1.60 - 2.40 mg/dLChillicothe HospitalNo Panel Informationon 81-64-9735EpjmazlyntChillicothe HospitalInterpretation and review of laboratory resultsNoKettering Health HamiltonUnTrinity Health System [facility] Medical CenterUnTrinity [facility] CenterRB shape Nom (Bld)on 91-71-9185Plylcdrqdl LM Ql (Bld)FewAultman Orr[facility] Hospital morphology finding Nom (Bld)See BelowChillicothe HospitalRenal function 2000 panelon 90-55-3046Hlwbevt BCP dye [Mass/Vol]3.5 g/dL3.4 - 5.0 g/dLChillicothe HospitalAni gap [Moles/Vol]11 mmol/L10 - 20 mmol/LUniversity Hospitals of ClevelandCalcium [Mass/Vol]8.6 mg/dL8.6 - 10.6 mg/dLUnTrinity Health System Twin City Medical CenterChloride [Moles/Vol]105 mmol/L98 - 107 mmol/[facility] CenterCO2 [Moles/Vol]26 mmol/L21 - 32 mmol/[facility] CenterCreatinine [Mass/Vol]0.77 mg/dL0.50 - 1.05 mg/dLUnTrinity Health System Twin City Medical CenterGFR/1.73 sq M.predicted among non-blacks MDRD (S/P/Bld) [Vol rate/Area]85 mL/min/{1.73_m2}- PINFUniParkview Health on above: Calculations of estimated GFR are performed using the 2020 CKD-EPI Study Refit equation without therace variable for the IDMS-Traceable creatinine methods. https://jasn.asnjournals.org/content//ASN.6875267683 Glucose [Mass/Vol]167 mg/fDSuex80 - 99 mg/dLUnTrinity Health [facility] Interpretation and review of laboratory resultsAbnormalUniTriHealth McCullough-Hyde Memorial HospitalPhosphate [Mass/Vol]3.3 mg/dL2.5 - 4.9 mg/dLUnRegional Medical Center on above:The performance characteristics of phosphorus testing in heparinized plasma have been validated by the individual laboratory site where testing is performed. Testing on heparinized plasma is not approved by the FDA; however, such approval is not necessary.Potassium [Moles/Vol]4.2 mmol/L3.5 - 5.3 mmol/[facility] CenterSodium [Moles/Vol]138 mmol/L136 - 145 mmol/[facility] CenterUrea nitrogen [Mass/Vol]20 mg/dL6 - 23 mg/dLChillicothe HospitalUric Acidon 42-25-6660Ogguc [Mass/Vol] 3.9 mg/dL2.3 - 6.7 mg/dLUnRegional Medical Center on above: Venipuncture immediately after or during the administration of Metamizole may lead to falsely low results. Testing should be performed immediately prior to Metamizole dosing. C-reactive proteinon 64-65-1289VKC [Mass/Vol]0.26 mg/dLNINF - 1.00 mg/dL [facility] HospitalCB W Auto Differential panel (Bld)on 26-85-9863Oxwigkrgi (Bld) [#/Vol]0.00 10*3/uLUnTrinity Health System [facility] Center Basophils/100 WBC (Bld)0.0 %0.0 - 2.0 %[facility] Eosinophils (Bld) [#/Vol]0.00 10*3/uLChillicothe Hospital Eosinophils/100 WBC (Bld)0.0 %0.0 - 6.0 %[facility] Erythrocyte distribution width (RBC) [Ratio]15.5 %High11.5 - 14.5 %[facility] HospitalHematocrit (Bld) [Volume fraction]28.5 %Low36.0 - 46.0 % [facility] HospitalHemoglobin (Bld) [Mass/Vol]8.7 g/dLLow12.0 - 16.0 g/dLUnTrinity Health System [facility] Medical CenterImmaselect medical [facility] granulocytes (Bld) [#/Vol] 0.05 10*3/uLChillicothe HospitalImhannibal regional hospital granulocytes/100 WBC (Bld) 2.1 %High0.0 - 0.9 %[facility] HospitalComment on above:Immature Granulocyte Count (IG) includes promyelocytes, myelocytes and metamyelocytes but does not include bands. Percent differential counts (%) should be interpreted in the context of the absolute cell counts (cells/UL).Interpretation and review of laboratory resultsAbnormalUniversCommunity Hospital EastLymphocytes (Bld) [#/Vol]0.49 10*3/uLLowUnTrinity Health System Twin City Medical CenterLymphocytes/100 WBC (Bld) 20.3 %13.0 - 44.0 %[facility] CenterH (RBC) [Entitic mass]27.5 pg26.0 - 34.[address] pgUnSt. Vincent HospitalHC (RBC) [Mass/Vol]30.5 g/dL Low32.0 - 36.0 g/dLUnSt. Vincent HospitalV (RBC) [Entitic vol]90 fL 80 - 100 fLUniversity Hospitals of ClevelandMonocytes (Bld) [#/Vol]0.35 10*3/uL [facility] HospitalMonocytes/100 WBC (Bld)14.5 %2.0 - 10.0 % [facility] HospitalNeutrophils (Bld) [#/Vol]1.52 10*3/uLChillicothe HospitalComment on above:Percent differential counts (%) should be interpreted in the context of the absolute cell counts (cells/uL). Neutrophils/100 WBC (Bld)63.1 %40.0 - 80.0 %[facility] Nucleated RBC/100 WBC (Bld) [Ratio]0.0 %[facility] Platelets (Bld) [#/Vol]34 10*3/uLCritically lowChillicothe Hospital RBC (Bld) [#/Vol]3.16 10*6/uLOhio State Health SystemWBC (Bld) [#/Vol]2.4 10*3/[facility] HospitalUnTrinity Health System [facility] Medical CenterFerritinon 47-95-1179Xqnpenof [Mass/Vol]35 ng/mL8 - 150 ng/mLChillicothe HospitalFerritin [Mass/Vol]on 66-84-4026Wgmfttkjpqtdwm and review of laboratory resultsNoKettering Health HamiltonFibrinogenon 90-43-0318Dtpfemamms Coag (PPP) [Mass/Vol]192 mg/iYExw014 - 400 mg/dLUnTrinity Health System Twin City Medical CenterFibrinogen Coag (PPP) [Mass/Vol]on 11-20-2023 Interpretation and review of laboratory resultsAbnoDetwiler Memorial HospitalGlucose Test strip manual (Bld) [Mass/Vol]on 14-01-5304Cybprem [Mass/Vol]94 mg/dL74 - 99 mg/dLChillicothe HospitalInterpretation and review of laboratory resultsNoal [facility]tering [facility] DaytonGlucose [Mass/Vol]77 mg/dL74 - 99 mg/dLUnTrinity Health System [facility] Medical CenterInterpretation and review of laboratory resultsNoDiley Ridge Medical CenterLDH Lactate to pyruvate reaction [Catalytic activity/Vol]on 41-68-3996Vdfyznsbipgpdr and review of laboratory results AbnormalUnTrinity Health System Twin [facility] Medical CenterLactate Dehydrogenaseon 38-99-8767XBM Lactate to pyruvate reaction [Catalytic activity/Vol]313 U/LHigh84 - 246 U/L [facility] HospitalMagnesiumon 45-58-3081Obvcmtpsc [Mass/Vol]1.81 mg/dL1.60 - 2.40 mg/dLUnTrinity Health System Twin City Medical CenterNo Panel Informationon 61-98-5367CeihjstxzxTrinity Health System Twin City Medical CenterInterpretation and review of laboratory resultsNormSt. Vincent HospitalUnTrinity [facility] CenterRenal function 2000 panelon 31-17-0368Hfpgbdd BCP dye [Mass/Vol]3.4 g/dL3.4 - 5.0 g/dLUnTrinity Health System Twin City Medical CenterAnion gap [Moles/Vol]12 mmol/L10 - 20 mmol/[facility] CenterCalcium [Mass/Vol]8.8 mg/dL 8.6 - 10.6 mg/dLUnTrinity Health System Twin City Medical CenterChloride [Moles/Vol]107 mmol/L 98 - 107 mmol/[facility] CenterCO2 [Moles/Vol]25 mmol/L21 - 32 mmol/[facility] CenterCreatinine [Mass/Vol]0.53 mg/dL0.50 - 1.05 mg/dLUnTrinity Health System Twin [facility] Medical CentereGFR- PINFUniParkview Health on above:Calculations of estimated GFR are performed using the 2020 CKD-EPI Study Refit equation without therace variable for the IDMS- Traceable creatinine methods. https://jasn.asnjournals.org/content//ASN.2009293667 Glucose [Mass/Vol]105 mg/eDCxgy74 - 99 mg/dLUnTrinity [facility] Interpretation and review of laboratory resultsAbnoKettering Health HamiltonPhosphate [Mass/Vol]3.0 mg/dL2.5 - 4.9 mg/dLFirelands Regional Medical Center South Campus on above:The performance characteristics of phosphorus testing in heparinized plasma have been validated by the individual laboratory site where testing is performed. Testing on heparinized plasma is not approved by the FDA; however, such approval is not necessary.Potassium [Moles/Vol]3.8 mmol/L3.5 - 5.3 mmol/[facility] CenterSodium [Moles/Vol]140 mmol/L136 - 145 mmol/[facility] CenterUrea nitrogen [Mass/Vol]15 mg/dL6 - 23 mg/dLUnTrinity Health System Twin City Medical CenterUric Acidon 34-20-8693Mmebt [Mass/Vol] 3.6 mg/dL2.3 - 6.7 mg/dLUnRegional Medical Center on above: Venipuncture immediately after or during the administration of Metamizole may lead to falsely low results. Testing should be performed immediately prior to Metamizole dosing. Basic metabolic 2000 panelon 51-58-8956Mcywu gap [Moles/Vol]13 mmol/L10 - 20 mmol/[facility] CenterCalcium [Mass/Vol]8.7 mg/dL8.6 - 10.6 mg/dLUnTrinity Health System [facility] Medical CenterChloride [Moles/Vol]108 mmol/LHigh98 - 107 mmol/[facility] CenterCO2 [Moles/Vol]25 mmol/L21 - 32 mmol/L [facility] HospitalCreatinine [Mass/Vol]0.60 mg/dL0.50 - 1.05 mg/dLUnTrinity Health System [facility] Medical CentereGFR- PINFUniversDoctors Hospital on above:Calculations of estimated GFR are performed using the 2020 CKD-EPI Study Refit equation without therace variable for the IDMS- Traceable creatinine methods. https://jasn.asnjournals.org/content/early//ASN.8723150609 Glucose [Mass/Vol]209 mg/iPOoth15 - 99 mg/dLUnTrinity Health [facility] Potassium [Moles/Vol]4.0 mmol/L3.5 - 5.3 mmol/[facility] Sodium [Moles/Vol]142 mmol/L136 - 145 mmol/[facility] Urea nitrogen [Mass/Vol]13 mg/dL6 - 23 mg/dLUnTrinity Health System Twin City Medical CenterC- reactive proteinon 99-07-8112DPT [Mass/Vol]0.38 mg/dLNINF - 1.00 mg/dLUnTrinity Health System [facility] Medical CenterCBC W Auto Differential panel (Bld)on 25-04-9559Prltwfslu (Bld) [#/Vol]0.01 10*3/[facility] HospitalBasophils/100 WBC (Bld)0.8 %0.0 - 2.0 %[facility] HospitalEosinophils (Bld) [#/Vol] 0.01 10*3/uLChillicothe HospitalEosinophils/100 WBC (Bld)0.8 %0.0 - 6.0 %[facility] HospitalErythrocyte distribution width (RBC) [Ratio]15.5 %High11.5 - 14.5 %[facility] HospitalHematocrit (Bld) [Volume fraction]33.3 %Low36.0 - 46.0 %[facility] Hemoglobin (Bld) [Mass/Vol]10.0 g/dLLow12.0 - 16.0 g/dLUnTrinity Health System [facility] Medical CenterImmaselect medical [facility] granulocytes (Bld) [#/Vol]0.02 10*3/[facility] granulocytes/100 WBC (Bld)1.6 %High0.0 - 0.9 %[facility] HospitalComment on above:Immature Granulocyte Count (IG) includes promyelocytes, myelocytes and metamyelocytes but does not include bands. Percent differential counts (%) should be interpreted in the context of the absolute c ell counts (cells/UL).Interpretation and review of laboratory resultsAbnormal [facility] HospitalLymphocytes (Bld) [#/Vol]0.28 10*3/uLLow [facility] HospitalLymphocytes/100 WBC (Bld)21.7 %13.0 - 44.0 % [facility] CenterH (RBC) [Entitic mass]27.5 pg26.0 - 34.0 pg [facility] CenterHC (RBC) [Mass/Vol]30.0 g/dLLow32.0 - 36.0 g/dLUnSt. Vincent HospitalV (RBC) [Entitic vol]92 fL80 - 100 fL [facility] HospitalMonocytes (Bld) [#/Vol]0.02 10*3/uLCleveland Clinic Hillcrest HospitalMonocytes/100 WBC (Bld)1.6 %2.0 - 10.0 % [facility] HospitalNeutrophils (Bld) [#/Vol]0.95 10*3/uLCleveland Clinic Hillcrest HospitalComment on above:Percent differential counts (%) should be interpreted in the context of the absolute cell counts (cells/uL). Neutrophils/100 WBC (Bld)73.5 %40.0 - 80.0 %[facility] Nucleated RBC/100 WBC (Bld) [Ratio]0.0 %[facility] Platelets (Bld) [#/Vol]33 10*3/Critically lowChillicothe Hospital Comment on above:Previous result verified on 11/18/2023 1738 on specimen/case [id number] called with component PLT for procedure CBC and Auto Differential with value 39 x10*3/uL.RBC (Bld) [#/Vol]3.64 10*6/[facility] HospitalWBC (Bld) [#/Vol]1.3 10*3/[facility] HospitalFerritinon 13-54-4746Vffkusvc [Mass/Vol]35 ng/mL8 - 150 ng/mLChillicothe HospitalFibrinogenon 95-20-1877Injxcuarvv Coag (PPP) [Mass/Vol] 221 mg/dL200 - 400 mg/dLUnTrinity Health System Twin City Medical CenterFibrinogen Coag (PPP) [Mass/Vol]on 69-99-1289Vmemuxgfzojxux and review of laboratory resultsNormal [facility] HospitalUnTrinity Health System [facility] Medical CenterGlucose Test strip manual (Bld) [Mass/Vol]on 31-84-1651Dfayasd [Mass/Vol]130 mg/jVIopa79 - 99 mg/dLUnTrinity Health System [facility] Medical CenterInterpretation and review of laboratory resultsAbnormSt. Vincent HospitalUnTrinity [facility] CenterGlucose [Mass/Vol]77 mg/dL74 - 99 mg/dLUnTrinity Health System [facility] Medical CenterInterpretation and review of laboratory resultsNoDetwiler Memorial HospitalGlucose [Mass/Vol]199 mg/hOPgoe54 - 99 mg/dLUnTrinity Health System [facility] CenterInterpretation and review of laboratory resultsAbTrumbull Memorial HospitalGlucose [Mass/Vol]147 mg/tLEqom82 - 99 mg/dLUnTrinity Health System [facility] CenterInterpretation and review of laboratory resultsAbLake County Memorial Hospital - WestHepatic function 2000 panelon 14-76-9625Wncovsj BCP dye [Mass/Vol]3.6 g/dL3.4 - 5.0 g/dL [facility] HospitalALP [Catalytic activity/Vol]86 U/L33 - 136 U/L [facility] HospitalALT With P-5'-P [Catalytic activity/Vol]21 U/L7 - 45 U/[facility] CenterComment on above:Patients treated with Sulfasalazine may generate falsely decreased results for ALT.AST With P-5'-P [Catalytic activity/Vol]29 U/L9 - 39 U/[facility] Bilirubin [Mass/Vol]0.8 mg/dL0.0 - 1.2 mg/dLCh[facility]ic[facility] Hospital Bilirubin.direct [Mass/Vol]0.2 mg/dL0.0 - 0.3 mg/dLUnTrinity Health System [facility] Medical CenterProtein [Mass/Vol]5.5 g/dLLow6.4 - 8.2 g/dLUnTrinity Health System Twin City Medical CenterLactate Dehydrogenaseon 81-60-4475DWL Lactate to pyruvate reaction [Catalytic activity/Vol]329 U/LHigh84 - 246 U/[facility] Magnesiumon 71-50-9563Vnqlnhqra [Mass/Vol]1.75 mg/dL1.60 - 2.40 mg/dLChillicothe HospitalNo Panel Informationon 74-70-1732Ujjxqjcruiupli and review of laboratory resultsNoDetwiler Memorial HospitalInterpretation and review of laboratory resultsAbnoUniversity Hospitals Ahuja Medical CenterInterpretation and review of laboratory resultsNoDiley Ridge Medical CenterPhosphoruson 28-20-2641Gttaygggk [Mass/Vol]2.6 mg/dL2.5 - 4.9 mg/dLUnRegional Medical Center on above:The performance characteristics of phosphorus testing in heparinized plasma have been validated by the individual laboratory site where testing is performed. Testing on heparinized plasma is not approved by the FDA; however, such approval is not necessary.RBC shape Nom (Bld)on 35-88-0831Sjknvhwqspo Ql (Bld)Mild [facility] HospitalOvalocytes LM Ql (Bld)FewUnTrinity Health System [facility] City Medical CenterRB morphology finding Nom (Bld)See BelowUnTrinity Health System Twin City Medical CenterUric Acidon 56-61-8752Qtwqd [Mass/Vol]4.1 mg/dL2.3 - 6.7 mg/dL [facility] on above:Venipuncture immediately after or during the administration of Metamizole may lead to falsely low results. Testing should be performed immediately prior to Metamizole dosing. Blood type and Indirect antibody screen panel (Bld)on 05-58-1351JFT group Nom (Bld)AUnTrinity Health System Twin City Medical CenterBlood group antibody screen QlNegative [facility] Ag Ql (Bld)PositiveUnTrinity Health System Twin City Medical CenterUnTrinity Health System [facility] Medical CenterCB W Auto Differential panel (Bld)on 38-16-1472Xwdpxlgqfga distribution width (RBC) [Ratio]15.5 %High11.5 - 14.5 % [facility] HospitalHematocrit (d) [Volume fraction]30.9 %Low36.0 - 46.0 %[facility] HospitalHemoglobin (Bld) [Mass/Vol]9.3 g/dLLow 12.0 - 16.0 g/dLUnTrinity Health System Twin City Medical CenterImhannibal regional hospital granulocytes (Bld) [#/Vol]0.01 10*3/uLUnBluffton Hospital granulocytes/100 WBC (Bld)0.6 %0.0 - 0.9 %[facility] on above: Immature Granulocyte Count (IG) includes promyelocytes, myelocytes and metamyelocytes but does not include bands. Percent differential counts (%) should be interpreted in the context of the absolute cell counts (cells/UL).MCH (RBC) [Entitic mass]27.5 pg26.0 - 34.0 pgUnTrinity Health System Twin City Medical CenterMCHC (RBC) [Mass/Vol]30.1 g/dLLow32.0 - 36.0 g/dLUnTrinity Health System Twin City Medical CenterMCV (RBC) [Entitic vol]91 fL80 - 100 fLUniTriHealth McCullough-Hyde Memorial HospitalNucleated RBC/100 WBC (Bld) [Ratio]0.0 %[facility] HospitalPlatelets (Bld) [#/Vol]39 10*3/uLCritically lowUnTrinity Health System Twin City Medical CenterRBC (Bld) [#/Vol]3.38 10*6/uLLowChillicothe HospitalWBC (Bld) [#/Vol]1.6 10*3/uLOhio State Health SystemThe previously reported component Neutrophils % is no [...] component Absolute Basophils is no longer being reported.[facility] HospitalComprehensive metabolic 2000 panelon 57-39-1794Qtnaobd BCP dye [Mass/Vol]3.3 g/dLLow3.4 - 5.0 g/dLUnTrinity Health System Twin City Medical CenterALP [Catalytic activity/Vol]77 U/L33 - 136 U/[facility] CenterALT With P-5'-P [Catalytic activity/Vol]20 U/L7 - 45 U/[facility] CenterComment on above:Patients treated with Sulfasalazine may generate falsely decreased results for ALT.Anion gap [Moles/Vol]13 mmol/L10 - 20 mmol/L [facility] HospitalAST With P-5'-P [Catalytic activity/Vol]27 U/L9 - 39 U/[facility] CenterBilirubin [Mass/Vol]0.8 mg/dL0.0 - 1.2 mg/dLUnTrinity Health System Twin City Medical CenterCalcium [Mass/Vol]8.5 mg/dLLow8.6 - 10.6 mg/dLUnTrinity Health System Twin City Medical CenterChloride [Moles/Vol]108 mmol/LHigh98 - 107 mmol/[facility] CenterCO2 [Moles/Vol]25 mmol/L21 - 32 mmol/L [place] HospitalCreatinine [Mass/Vol]0.56 mg/dL0.50 - 1.05 mg/dLUnTrinity Health System Twin City Medical CentereGFR- PINFUniTriHealth McCullough-Hyde Memorial HospitalComment on above:Calculations of estimated GFR are performed using the 2020 CKD-EPI Study Refit equation without therace variable for the IDMS- Traceable creatinine methods. https://jasn.asnjournals.org/content//ASN.1758763586 Glucose [Mass/Vol]100 mg/iXUkcw42 - 99 mg/dLUnTrinity Health System [facility] Center Interpretation and review of laboratory resultsAbMiami Valley HospitalPotassium [Moles/Vol]3.8 mmol/L3.5 - 5.3 mmol/[facility] CenterProtein [Mass/Vol]5.0 g/dLLow6.4 - 8.2 g/dLUnTrinity Health System Twin City Medical CenterSodium [Moles/Vol]142 mmol/L136 - 145 mmol/[facility] CenterUrea nitrogen [Mass/Vol]13 mg/dL6 - 23 mg/dLUnTrinity Health System Twin City Medical CenterGlucose Test strip manual (Bld) [Mass/Vol]on 02-17-9219Xvytwsp [Mass/Vol]139 mg/xIZcre74 - 99 mg/dLUnTrinity Health System [facility] Interpretation and review of laboratory resultsAbnoKettering Health HamiltonUnTrinity Health System [facility] Medical CenterGlucose [Mass/Vol]92 mg/dL74 - 99 mg/dLUnTrinity Health System Twin City Medical CenterInterpretation and review of laboratory resultsNoDetwiler Memorial Hospital LDH Lactate to pyruvate reaction [Catalytic activity/Vol]on 11-18-2023 Interpretation and review of laboratory resultsAbTrumbull Memorial HospitalLactate Dehydrogenaseon 13-00-9315XBP Lactate to pyruvate reaction [Catalytic activity/Vol]290 U/LHigh84 - 246 U/L [facility] HospitalMagnesiumon 42-04-4603Zskaoarop [Mass/Vol]1.75 mg/dL1.60 - 2.40 mg/dLChillicothe HospitalManual differential performed Ql (Bld)on 03-89-2039Tokxucnho (Bld) [#/Vol]0.00 10*3/[facility] HospitalBasophils/100 WBC (Bld)0.0 %0.0 - 2.0 %[place] HospitalCells Counted Total (Bld) [#]117 {cells}[facility] HospitalEosinophils (Bld) [#/Vol]0.01 10*3/[facility] HospitalEosinophils/100 WBC (Bld)0.8 %0.0 - 6.0 %[place] HospitalHypochromia Ql (Bld)[facility] HospitalUnTrinity Health System Twin City Medical CenterLymphocytes (Bld) [#/Vol]0.41 10*3/[facility] HospitalLymphocytes/100 WBC (Bld)25.6 %13.0 - 44.0 %[place] HospitalMonocytes (Bld) [#/Vol]0.16 10*3/[facility] HospitalMonocytes/100 WBC (Bld)10.3 %2.0 - 10.0 %[place] HospitalMyelocytes (Bld) [#/Vol]0.01 10*3/[facility] HospitalMyelocytes/100 WBC (Bld)0.9 %0.0 - 0.0 % [place] HospitalOvalocytes LM Ql (Bld)[facility] Hospital at SouthwoodsRBC morphology finding Nom (Bld)See BelowUnTrinity Health System Twin City Medical CenterSegmented neutrophils (Bld) [#/Vol]0.93 10*3/[facility]edo HospitalSeented neutrophils/100 WBC (Bld)58.1 %40.0 - 80.0 %[facility] HospitalComment on above:Percent differential counts (%) should be interpreted in the context of the absolute cell counts (cells/uL).Variant lymphocytes (Bld) [#/Vol]0.07 10*3/[facility] HospitalVariant lymphocytes/100 WBC (Bld)4.3 %0.0 - 2.0 %[facility] HospitalNo Panel Informationon 66-18-5164Xieyckhgdtqpoe and review of laboratory results AbnormalUnTrinity Health System Twin City Medical CenterUnTr[facility] Interpretation and review of laboratory resultsNormalUniversLakeside Women's Hospital – Oklahoma CityUric Acidon 02-68-2996Syyla [Mass/Vol] 3.9 mg/dL2.3 - 6.7 mg/dLUnRegional Medical Center on above: Venipuncture immediately after or during the administration of Metamizole may lead to falsely low results. Testing should be performed immediately prior to Metamizole dosing. CBC W Auto Differential panel (Bld)on 49-47-9176Wvjnxckkr (Bld) [#/Vol]0.00 10*3/[facility] on above:Automated WBC differential has been confirmed by manual smear.Basophils/100 WBC (Bld)0.0 %0.0 - 2.0 %[place] HospitalEosinophils (Bld) [#/Vol]0.06 10*3/uL [place] HospitalEosinophils/100 WBC (Bld)3.1 %0.0 - 6.0 % [place] HospitalErythrocyte distribution width (RBC) [Ratio] 15.9 %High11.5 - 14.5 %[place] HospitalHematocrit (Bld) [Volume fraction]31.2 %Low36.0 - 46.0 %[place] HospitalHemoglobin (Bld) [Mass/Vol]9.9 g/dLLow12.0 - 16.0 g/dLChillicothe Hospital Immature granulocytes (Bld) [#/Vol]0.01 10*3/[facility] Immature granulocytes/100 WBC (Bld)0.5 %0.0 - 0.9 %[facility] on above:Immature Granulocyte Count (IG) includes promyelocytes, myelocytes and metamyelocytes but does not include bands. Percent differential counts (%) should be interpreted in the context of the absolute c ell counts (cells/UL).Interpretation and review of laboratory resultsAbnormal [facility] HospitalLymphocytes (Bld) [#/Vol]0.69 10*3/[facility] HospitalLymphocytes/100 WBC (Bld)35.6 %13.0 - 44.0 % [facility] CenterH (RBC) [Entitic mass]28.1 pg26.0 - 34.0 pg [facility] CenterHC (RBC) [Mass/Vol]31.7 g/dLLow32.0 - 36.0 g/dLUnSt. Vincent HospitalV (RBC) [Entitic vol]89 fL80 - 100 fL [place] HospitalMonocytes (Bld) [#/Vol]0.23 10*3/[facility] HospitalMonocytes/100 WBC (Bld)11.9 %2.0 - 10.0 %[place] HospitalNeutrophils (Bld) [#/Vol]0.95 10*3/[facility] on above:Percent differential counts (%) should be interpreted in the context of the absolute cell counts (cells/uL). Neutrophils/100 WBC (Bld)48.9 %40.0 - 80.0 %[facility] Nucleated RBC/100 WBC (Bld) [Ratio]0.0 %[facility] Platelets (Bld) [#/Vol]45 10*3/[facility] HospitalRBC (Bld) [#/Vol]3.52 10*6/[facility] HospitalWBC (Bld) [#/Vol]1.9 10*3/[facility] Comprehensive metabolic 2000 panelon 26-38-7971Gqcyigb BCP dye [Mass/Vol]3.3 g/dLLow3.4 - 5.0 g/dLChillicothe HospitalALP [Catalytic activity/Vol]84 U/L33 - 136 U/[facility] CenterALT With P-5'-P [Catalytic activity/Vol]22 U/L7 - 45 U/[facility] on above:Patients treated with Sulfasalazine may generate falsely decreased results for ALT.Anion gap [Moles/Vol]13 mmol/L10 - 20 mmol/[facility] CenterAST With P-5'-P [Catalytic activity/Vol]28 U/L9 - 39 U/[facility] CenterBilirubin [Mass/Vol]0.8 mg/dL0.0 - 1.2 mg/dLUnTrinity Health System Twin City Medical CenterCalcium [Mass/Vol]8.1 mg/dLLow8.6 - 10.3 mg/dLUnTrinity Health System Twin City Medical CenterChloride [Moles/Vol]107 mmol/L98 - 107 mmol/[facility] CenterCO2 [Moles/Vol]25 mmol/L21 - 32 mmol/[facility] CenterCreatinine [Mass/Vol]0.59 mg/dL0.50 - 1.05 mg/dLUnTrinity Health System Twin City Medical CentereGFR- PINFUniParkview Health on above:Calculations of estimated GFR are performed using the 2020 CKD-EPI Study Refit equation without therace variable for the IDMS-Traceable creatinine methods. https://jasn.asnjournals.org/content//ASN.9840497082 Glucose [Mass/Vol]93 mg/dL74 - 99 mg/dLChillicothe Hospital Potassium [Moles/Vol]4.0 mmol/L3.5 - 5.3 mmol/[facility] Protein [Mass/Vol]5.1 g/dLLow6.4 - 8.2 g/dLUnTrinity Health System [facility] Sodium [Moles/Vol]141 mmol/L136 - 145 mmol/[facility] Urea nitrogen [Mass/Vol]11 mg/dL6 - 23 mg/dLChillicothe Hospital Immunoglobulins (IgG, IgA, IgM)Ordered By: Todd Deluca on 36-62-2710RvC [Mass/Vol]mg/dLLow70 - 400 mg/dLChillicothe HospitalIgG [Mass/Vol] 526 mg/bPPuq277 - 1600 mg/dLUnTrinity Health System Twin City Medical CenterIgM [Mass/Vol]mg/dL Low40 - 230 mg/dLChillicothe HospitalInterpretation and review of laboratory resultsAbnoKettering Health HamiltonMONOCLONAL PROTEINS MAY CAUSE FALSELY LOW RESULTS IN THIS ASSAY. SERUM PROTEIN ELECTROPHORESIS SHOULD BE DONE THE FIRST TEST TO EVALUATE MONOCLONAL GAMMOPATHY.[facility] HospitalLactate dehydrogenaseon 16-20-3821FZD Lactate to pyruvate reaction [Catalytic activity/Vol]298 U/LHigh84 - 246 U/[facility] CenterNo Panel Informationon 49-97-1936Xjlrlfwlextkjz and review of laboratory resultsAbnoKettering Health HamiltonUnTrinity Health System [facility] Medical CenterUrate [Mass/Vol]on 70-62-4196Ltprrcdbyxjwxw and review of laboratory resultsNoKettering Health HamiltonUric acidon 11-17-2023 Urate [Mass/Vol]4.0 mg/dL2.3 - 6.7 mg/dLChillicothe HospitalComment on above:Venipuncture immediately after or during the administration of Metamizole may lead to falsely low results. Testing should be performed immediately prior to Metamizole dosing. COVID-19 SOFIAOrdered By: Fabiola Palumbo on 79-94-3807PRTT-CoV+SARS-CoV-2 (COVID- 19) Ag IA.rapid Ql (Resp)PositiveNegativeChildren'S Hospital For Rehabilitation Comment on above:This is a duplicate Yanni SARS Antigen (JOCELYNE) result to be used for statistical tracking purpose only.No Panel InformationOrdered By: Fabiola Palumbo on 49-14-0414BQNW Antigen (LFIA)[facility] HealthARS Antigen (LFIA)[facility] For RehabilitationAlanine aminotransferase [Enzymatic activity/volume] in Serum or PlasmaOrdered By: Fabiola Marinelli on 74-69-6702ESH [Catalytic activity/Vol]19 U/LChildren'S Hospital For RehabilitationALT [Catalytic activity/Vol]Alanine aminotransferase [Enzymatic activity/volume] in Serum or PlasmaChildren'S Hospital For RehabilitationAlbumin [Mass/volume] in Serum or Plasma by Bromocresol green (BCG) dye binding metho Ordered By: Fabiola Marinelli on 40-68-8271Lqqlall BCG dye [Mass/Vol]3.4 g/dLLow3.5-5.7 [facility] For RehabilitationAlbumin BCG dye [Mass/Vol]Albumin [Mass/volume] in Serum or Plasma by Bromocresol green (BCG) dye binding methoLow3.5-5.7 [facility] For RehabilitationAlkaline phosphatase [Enzymatic activity/volume] in Serum or PlasmaOrdered By: Fabiola Marinelli on 67-74-9624HNY [Catalytic activity/Vol]105 U/PNriq56-700TepovykznChildren'S Hospital For RehabilitationALP [Catalytic activity/Vol]Alkaline phosphatase [Enzymatic activity/volume] in Serum or YnbvvcNefu56-148AzwvhpajmChildren'S Hospital For RehabilitationAnisocytosis LM Ql (Bld)Ordered By: Fabiola Marinelli on 21-02-1991Hgaxaexxhqnq Ql (Bld)SlightChildren'S Hospital For RehabilitationAnisocytosis Ql (Bld)Anisocytosis [Presence] in Blood by Light microscopyChildren'S Hospital For RehabilitationAspartate aminotransferase [Enzymatic activity/volume] in Serum or PlasmaOrdered By: Fabiola Marinelli on 99-03-8563RDG [Catalytic activity/Vol]22 U/S20-82QunulyodfChildren'S Hospital For RehabilitationAST [Catalytic activity/Vol]Aspartate aminotransferase [Enzymatic activity/volume] in Serum or Hebplv18-69BklajfrryChildren'S Hospital For Rehabilitation Basophils Auto (Bld) [#/Vol]Ordered By: Fabiola Marinelli on 28-00-1400Vxmyntogz (Bld) [#/Vol]0.0 10*3/uL0.0-0.2FOhioHealth Arthur G.H. Bing, MD, Cancer CenterBasophils (Bld) [#/Vol]Automated basophil count0.0-0.2FOhioHealth Arthur G.H. Bing, MD, Cancer Center Basophils/100 WBC Auto (Bld)Ordered By: Fabiola Marinelli on 90-41-3340Aqrdlaekr/100 WBC (Bld)0.2 %.[facility] Hospital For RehabilitationBasophils/100 WBC (Bld)Automated basophil %.[facility] For RehabilitationBilirubin.total [Mass/volume] in Serum or PlasmaOrdered By: Fabiola Marinelli on 34-83-5627Myctaloqm [Mass/Vol]0.8 mg/dL 0.3-1.0[facility] Hospital For RehabilitationBilirubin [Mass/Vol]Bilirubin.total [Mass/volume] in Serum or Plasma0.3-1.0[facility] For RehabilitationCalcium [Mass/volume] in Serum or PlasmaOrdered By: Fabiola Marinelli on 14-02-7212Wgauhpp [Mass/Vol]8.5 mg/dL8.6-10.3FOhioHealth Arthur G.H. Bing, MD, Cancer CenterCarbon dioxide, total [Moles/volume] in Serum or PlasmaOrdered By: Fabiola Marinelli on 60-82-5177DS0 [Moles/Vol]26.4 mmol/L21.0-31.0[facility] For RehabilitationCO2 [Moles/Vol] Carbon dioxide, total [Moles/volume] in Serum or Wtltat97.0-31.0[facility] For RehabilitationChloride [Moles/volume] in Serum or PlasmaOrdered By: Fabiola Marinelli on 95-15-7172Muttmssj [Moles/Vol]108 mmol/QCxas82-972OvxjasxvbChildren'S Hospital For RehabilitationChloride [Moles/Vol]Chloride [Moles/volume] in Serum or PlasmaHigh 98-107Children[facility] For RehabilitationCreatinine [Mass/volume] in Serum or PlasmaOrdered By: Fabiola Marinelli on 95-33-0304Yslsoionka [Mass/Vol]0.52 mg/dL 0.60-1.20[facility] Hospital For RehabilitationEosinophils Auto (Bld) [#/Vol]Ordered By: Fabiola Marinelli on 98-94-4431Lirwgjokyvt (Bld) [#/Vol]0.0 10*3/uL0.0-0.45Children[facility] Hospital For RehabilitationEosinophils (Bld) [#/Vol]Automated eosinophil count 0.0-0.45[facility] Hospital For RehabilitationEosinophils/100 WBC Auto (Bld)Ordered By: Fabiola Marinelli on 46-60-6134Mjflagjttxx/100 WBC (Bld)1.6 %.[facility] For RehabilitationEosinophils/100 WBC (Bld)Automated eosinophil %.[facility] For RehabilitationErythrocyte distribution width Auto (RBC) [Ratio]Ordered By: Fabiola Marinelli on 33-63-0986Jcpeozfviph distribution width (RBC) [Ratio]15.2 %11.9-15.3 [facility] For RehabilitationErythrocyte distribution width (RBC) [Ratio] Erythrocyte distribution width [Ratio] by Automated count11.9-15.3FOhioHealth Arthur G.H. Bing, MD, Cancer CenterGlobulin Calc (S) [Mass/Vol]Ordered By: Fabiola Marinelli on 12-37-4548Yuiyevbp (S) [Mass/Vol]2.0 g/dLChildren'S Hospital For Rehabilitation Globulin (S) [Mass/Vol]Serum globulin measurement by calculation (mass/volume) [facility] For RehabilitationGlucose [Mass/volume] in Serum or PlasmaOrdered By: Fabiola Marinelli on 19-32-2092Kouzcth [Mass/Vol]126 mg/vJTlpi85-092AebykwvspChildren'S Hospital For RehabilitationComment on above:ADA recommended reference rangeRandom Glucose Reference Range is dependent on time and content of last meal. Glucose of more than 200 mg/dL in a nonstressed, ambulatory subject supports the diagnosisof Diabetes Mellitus.Glucose [Mass/Vol]Glucose [Mass/volume] in Serum or PdfwtiBpdi16-898UtuvnwesiChildren'S Hospital For RehabilitationHematocrit Auto (Bld) [Volume fraction]Ordered By: Fabiola Marinelli on 18-18-7297Boztzurgmt (Bld) [Volume fraction]30.0 %Low34.0-46.4FOhioHealth Arthur G.H. Bing, MD, Cancer CenterHematocrit (Bld) [Volume fraction]Hematocrit [Volume Fraction] of Blood by Automated countLow 34.0-46.4FOhioHealth Arthur G.H. Bing, MD, Cancer CenterHemoglobin [Mass/volume] in Blood Ordered By: Fabiola Marinelli on 66-18-3796Jdsewwzsya (Bld) [Mass/Vol]10.1 g/dLLow 11.8-15.4FOhioHealth Arthur G.H. Bing, MD, Cancer CenterHemoglobin (Bld) [Mass/Vol]Hemoglobin [Mass/volume] in SfjooTly55.8-15.4FOhioHealth Arthur G.H. Bing, MD, Cancer CenterIgA [Mass/volume] in Serum or PlasmaOrdered By: Fabiola Marinelli on 36-72-1071MsO [Mass/Vol]mg/vVPbm44-278IfmcifeduChildren'S Hospital For RehabilitationComment on above:Result confirmed on concentration.IgA [Mass/Vol]IgA [Mass/volume] in Serum or Plasma Zpb53-453MnwkdgzpvChildren'S Hospital For RehabilitationIgG [Mass/volume] in Serum or Plasma Ordered By: Fabiola Marinelli on 75-73-5155LiE [Mass/Vol]594 mg/nI761-3657ZgzmxjgcvChildren'S Hospital For RehabilitationIgG [Mass/Vol]IgG [Mass/volume] in Serum or Plasma 586-1602Children'S Hospital For RehabilitationIgM [Mass/volume] in Serum or Plasma Ordered By: Fabiola Marinelli on 26-16-7855VsW [Mass/Vol]10 mg/yXRpo04-560Wznymh[address] [place], [place] [address]Comment on above:Result confirmed on concentration.Performed at: [facility] [employer] [id number] Director: Lang Knight PhD, Phone: [phone] [Mass/Vol]IgM [Mass/volume] in Serum or YlymzkYir47-409Dugibeu[address] [place] [address] Immunoglobulin light chains.kappa.free [Mass/volume] in SerumOrdered By: Fabiola Marinelli on 93-04-7326Dkucbrtizqtirs light chains.kappa.free (S) [Mass/Vol]<0.7 mg/LLow3.3-19.4FOhioHealth Arthur G.H. Bing, MD, Cancer CenterImmunoglobulin light chains.kappa.free (S) [Mass/Vol]Immunoglobulin light chains.kappa.free [Mass/volume] in SerumLow3.3-19.4FOhioHealth Arthur G.H. Bing, MD, Cancer CenterImmunoglobulin light chains.kappa.free/Immunoglobulin light chains.lambda.free [MassOrdered By: Fabiola Marinelli on 52-62-1587Iclnbbllhflkpf light chains.kappa.free/Immunoglobulin light chains.lambda.free (S) [Mass ratio]See comment.[facility] Hospital For RehabilitationComment on above:Unable to calculate result since non-numeric resultobtained for component test.Performed at: [address] [id number] Director: Lang Knight PhD, Phone: [phone] Immunoglobulin light chains.kappa.free/Immunoglobulin light chains.lambda.free (S) [Mass ratio]Immunoglobulin light chains.kappa.free/Immunoglobulin light chains.lambda.free [Mass.[facility] For RehabilitationImmunoglobulin light chains.lambda.free [Mass/volume] in Serum or PlasmaOrdered By: Fabiola Marinelli on 03-20-6762Tuvipdiqoitiye light chains.lambda.free [Mass/Vol]mg/LLow5.7-26.3 [facility] For RehabilitationImmunoglobulin light chains.lambda.free [Mass/Vol]Immunoglobulin light chains.lambda.free [Mass/volume] in Serum or PlasmaLow5.7-26.3FOhioHealth Arthur G.H. Bing, MD, Cancer CenterLeukocytes [#/volume] corrected for nucleated erythrocytes in Blood by Automated counOrdered By: Fabiola Marinelli on 33-38-7376HDQ corrected for nucl RBC Auto (Bld) [#/Vol]1.7 10*3/uLLow 3.8-11.6FOhioHealth Arthur G.H. Bing, MD, Cancer CenterWBC corrected for nucl RBC Auto (Bld) [#/Vol]Leukocytes [#/volume] corrected for nucleated erythrocytes in Blood by Automated counLow3.8-11.6FOhioHealth Arthur G.H. Bing, MD, Cancer CenterLymphocytes Auto (Bld) [#/Vol]Ordered By: Fabiola Marinelli on 39-65-8397Lcbtbqiazvj (Bld) [#/Vol]0.4 10*3/uL Low1.00-4.8Children[facility] Hospital For RehabilitationLymphocytes (Bld) [#/Vol]Lymphocytes [#/volume] in Blood by Automated countLow1.00-4.8[facility] Hospital For RehabilitationLymphocytes/100 WBC Auto (Bld)Ordered By: Fabiola Marinelli on 09-29-2023 Lymphocytes/100 WBC (Bld)23.9 %.[facility] Hospital For RehabilitationLymphocytes/100 WBC (Bld)Lymphocytes/100 leukocytes in Blood by Automated count.[facility] Auto (RBC) [Entitic mass]Ordered By: Fabiola Marinelli on 84-90-8296WJK (RBC) [Entitic mass]31.7 pg24.7-34.3FSt. Elizabeth Hospital (RBC) [Entitic mass]MCH [Entitic mass] by Automated count24.7-34.3 [facility] Auto (RBC) [Mass/Vol]Ordered By: Fabiola Marinelli on 91-66-6831KRNX (RBC) [Mass/Vol]33.7 g/dL32.0-35.0[facility] CenterHC (RBC) [Mass/Vol]MCHC [Mass/volume] by Automated count32.0-35.0 [facility] CenterV Auto (RBC) [Entitic vol]Ordered By: Fabiola Marinelli on 48-37-5899MCO (RBC) [Entitic vol]94.2 oU83-181YypvptidoChildren'S Hospital For RehabilitationMCV (RBC) [Entitic vol]MCV [Entitic volume] by Automated count 80-100Children[facility] Hospital For RehabilitationMicrocytes LM Ql (Bld)Ordered By: Fabiola Marinelli on 79-59-7079Sinhditjyk Ql (Bld)SlightChildren'S Hospital For Rehabilitation Microcytes Ql (Bld)Microcytes [Presence] in Blood by Light microscopyChildren'S Hospital For RehabilitationMonocytes Auto (Bld) [#/Vol]Ordered By: Fabiola Marinelli on 83-46-1830Bqiyeowth (Bld) [#/Vol]0.3 10*3/uL0.0-0.8[facility] Hospital For RehabilitationMonocytes (Bld) [#/Vol]Automated blood monocyte count0.0-0.8[facility] Hospital For RehabilitationMonocytes/100 WBC Auto (Bld)Ordered By: Fabiola Marinelli on 77-94-6675Azfqmkwnv/100 WBC (Bld)18.4 %.[facility] Monocytes/100 WBC (Bld)Automated monocyte %.[facility] Neutrophils Auto (Bld) [#/Vol]Ordered By: Fabiola Marinelli on 74-75-9953Ezajwwbtomn (Bld) [#/Vol]1.0 10*3/uLLow1.8-7.7FOhioHealth Arthur G.H. Bing, MD, Cancer CenterNeutrophils (Bld) [#/Vol]Neutrophils [#/volume] in Blood by Automated countLow1.8-7.7 [facility] For RehabilitationNeutrophils/100 WBC Auto (Bld)Ordered By: Fabiola Marinelli on 01-19-5471Wabznwbxvjc/100 WBC (Bld)55.9 %.[facility] Hospital For RehabilitationNeutrophils/100 WBC (Bld)Automated neutrophil %.[facility] For RehabilitationNo Panel InformationOrdered By: Fabiola Marinelli on 23-39-6142Ogsojqbvm GFR (CKD-EPI)> 60.0 mL/MinChildren'S Hospital For RehabilitationPharmacy Creatinine Clearance (Chem68.49[facility]> 60.0 mL/MinChildren'S Hospital For Rehabilitation68.49[facility] For RehabilitationNucleated erythrocytes [Presence] in Blood by Automated countOrdered By: Fabiola Marinelli on 21-59-1589Hnuhoihxi RBC Auto Ql (Bld)0.1 /100{WBC}0-0.5FOhioHealth Arthur G.H. Bing, MD, Cancer CenterNucleated RBC Auto Ql (Bld)Nucleated erythrocytes [Presence] in Blood by Automated count0-0.5FOhioHealth Arthur G.H. Bing, MD, Cancer CenterOvalocyte detectionOrdered By: Fabiola Marinelli on 31-76-3253Mckglbuocs LM Ql (Bld)Slight [facility] Hospital For RehabilitationOvalocytes LM Ql (Bld)Ovalocyte detection [facility] For RehabilitationPlatelet adequacy [Presence] in Blood by Light microscopyOrdered By: Fabiola Marinelli on 13-74-6874Waiyhdpib LM Ql (Bld)Decreased NormalChildren'S Hospital For RehabilitationPlateprovidence behavioral health hospital LM Ql (Bld)Platelet adequacy [Presence] in Blood by Light microscopyNormalChildren'S Hospital For Rehabilitation Platelet mean volume Auto (Bld) [Entitic vol]Ordered By: Fabiola Marinelli on 09-29-2023 Platelet mean volume (Bld) [Entitic vol]8.3 fL6.3-10.7FOhioHealth Arthur G.H. Bing, MD, Cancer CenterPlatelet mean volume (Bld) [Entitic vol]Platelet mean volume [Entitic volume] in Blood by Automated count6.3-10.7FOhioHealth Arthur G.H. Bing, MD, Cancer Center Platelet morphology finding [Identifier] in BloodOrdered By: Fabiola Marinelli on 30-75-0652Rlmqjokh morphology finding Nom (Bld)N/AFOhioHealth Arthur G.H. Bing, MD, Cancer CenterPlatelet morphology finding Nom (Bld)Platelet morphology finding [Identifier] in BloodChildren'S Hospital For RehabilitationPlateprovidence behavioral health hospital Auto (Bld) [#/Vol]Ordered By: Fabiola Marinelli on 07-20-0305Tctwdqewl (Bld) [#/Vol]42 10*3/uLLow 150-450[facility] For RehabilitationPlatelets (Bld) [#/Vol]Platelets [#/volume] in Blood by Automated ilhnoZjj177-642ZxsokkzrqChildren'S Hospital For RehabilitationPlatelets Large [Presence] in Blood by Light microscopyOrdered By: Fabiola Marinelli on 22-69-4175Bbpgctetz Large LM Ql (Bld)SlightChildren'S Hospital For RehabilitationPlateprovidence behavioral health hospital Large LM Ql (Bld)Platelets Large [Presence] in Blood by Light microscopyChildren'S Hospital For RehabilitationPoikilocytosis [Presence] in Blood by Light microscopyOrdered By: Fabiola Marinelli on 70-01-5726Sslyesjgcnudaw LM Ql (Bld) SlightChildren'S Hospital For RehabilitationPoikilocytosis LM Ql (Bld)Poikilocytosis [Presence] in Blood by Light microscopyChildren'S Hospital For Rehabilitation Polychromasia [Presence] in Blood by Light microscopyOrdered By: Fabiola Marinelli on 60-86-9052Oeiyyrofrnxmc LM Ql (Bld)[facility] Polychromasia LM Ql (Bld)Polychromasia [Presence] in Blood by Light microscopy [facility] RehabilitationPotassium [Moles/volume] in Serum or Plasma Ordered By: Fabiola Marinelli on 51-09-7128Xppjsaqtq [Moles/Vol]3.8 mmol/L3.5-5.1 [facility] RehabilitationPotassium [Moles/Vol]Potassium [Moles/volume] in Serum or Plasma3.5-5.1FOhioHealth Arthur G.H. Bing, MD, Cancer CenterProtein [Mass/volume] in Serum or PlasmaOrdered By: Fabiola Marinelli on 82-36-2646Hlslezo [Mass/Vol]5.4 g/dL Low6.4-8.9[facility] For RehabilitationProtein [Mass/Vol]Protein [Mass/volume] in Serum or PlasmaLow6.4-8.9[facility] Auto (Bld) [#/Vol]Ordered By: Fabiola Marinelli on 47-75-0998VQT (Bld) [#/Vol]3.18 10*6/uLLow3.60-5.00[facility] (Bld) [#/Vol] Erythrocytes [#/volume] in Blood by Automated countLow3.60-5.00[facility] morphologyOrdered By: Fabiola Marinelli on 01-56-5103YGI morphology finding Nom (Bld)N/AFChillicothe [facility] Center morphology finding Nom (Bld)RBC morphologySumma Healthchistocytes [Presence] in Blood by Light microscopyOrdered By: Fabiola Marinelli on 09-29-2023 Schistocytes LM Ql (Bld)SlightSumma Healthchistocytes LM Ql (Bld)Schistocytes [Presence] in Blood by Light microscopySumma Healtherum or plasma albumin/globulin mass ratioOrdered By: Fabiola Marinelli on 36-92-9564Ctngahl/Globulin [Mass ratio]1.7 {ratio}[facility] RehabilitationAlbumin/Globulin [Mass ratio]Serum or plasma albumin/globulin mass ratio Summa Healtherum or plasma anion gap determinationOrdered By: Fabiola Marinelli on 41-70-4645Nqlhf gap [Moles/Vol]9.4 mmol/L6.0-15.0[facility] For RehabilitationAnion gap [Moles/Vol]Serum or plasma anion gap determination6.0-15.0Summa Healthodium [Moles/volume] in Serum or PlasmaOrdered By: Fabiola Marinelli on 27-56-5891Ehqixo [Moles/Vol]140 mmol/L 136-145Summa Healthodium [Moles/Vol]Sodium [Moles/volume] in Serum or Aatunf898-700PclymrnylChildren'S Hospital For RehabilitationTeardrop cell detectionOrdered By: Fabiola Marinelli on 94-00-0089Kbyxxymunh LM Ql (Bld)[facility] Medical CenterDacrocytes LM Ql (Bld)Teardrop cell detection [facility] For RehabilitationUrea nitrogen [Mass/volume] in Serum or Plasma Ordered By: Fabiola Marinelli on 31-08-6999Rirv nitrogen [Mass/Vol]15 mg/dL7-[facility] For RehabilitationWBC Auto (Bld) [#/Vol]Ordered By: Fabiola Marinelli on 09-48-9644PBA (Bld) [#/Vol]1.7 10*3/uLLow3.8-11.6FOhioHealth Arthur G.H. Bing, MD, Cancer CenterWBC (Bld) [#/Vol]Leukocytes [#/volume] in Blood by Automated countLow 3.8-11.6FOhioHealth Arthur G.H. Bing, MD, Cancer CenterAnisocytosis LM Ql (Bld)Ordered By: Juan Rivera on 78-84-4092Nxodvfibyuoy Ql (Bld)[facility] HospitalBasophils Auto (Bld) [#/Vol]Ordered By: Juan Rivera on 09-12-2023 Basophils (Bld) [#/Vol]0.0 10*3/uL0.0-0.2FOhioHealth Arthur G.H. Bing, MD, Cancer Center Basophils/100 WBC Auto (Bld)Ordered By: Juan Rivera on 77-71-2601Ysuzefdoa/100 WBC (Bld)0.1 %.[facility] For RehabilitationCOVID-19 Detected/Not Detected Ordered By: Juan Rivera on 80-49-3670WCXM-CoV-2 (COVID-19) RNA JOHANN+non-probe Ql (Nph)DetectedNot DetectKettering Health Main CampusComment on above: This is a duplicate RP2.1 COVID (PCR) result to be used for statistical tracking purpose only.Calcium [Mass/volume] in Serum or PlasmaOrdered By: Juan Rivera on 85-97-0012Injmtqp [Mass/Vol]8.3 mg/dL8.6-10.3FOhioHealth Arthur G.H. Bing, MD, Cancer CenterCarbon dioxide, total [Moles/volume] in Serum or PlasmaOrdered By: Juan Rivera on 98-00-1193YF5 [Moles/Vol]26.1 mmol/L21.0-31.0[facility] For RehabilitationChloride [Moles/volume] in Serum or PlasmaOrdered By: Juan Rivera on 33-12-3189Qnqwqysv [Moles/Vol]107 mmol/A19-574QwhtfrjgvChildren'S Hospital For RehabilitationCreatinine [Mass/volume] in Serum or PlasmaOrdered By: Juan Rivera on 05-63-3879Blytqqqltn [Mass/Vol]0.54 mg/dL0.60-1.20[facility] For RehabilitationEosinophils Auto (Bld) [#/Vol]Ordered By: Juan Rivera on 12-86-4018Qszjerjiiht (Bld) [#/Vol]0.0 10*3/uL0.0-0.45[facility] Hospital For RehabilitationEosinophils/100 WBC Auto (Bld)Ordered By: Juan Rivera on 09-12-2023 Eosinophils/100 WBC (Bld)1.5 %.[facility] Hospital For RehabilitationErythrocyte distribution width Auto (RBC) [Ratio]Ordered By: Juan Rivera on 09-12-2023 Erythrocyte distribution width (RBC) [Ratio]16.3 %11.9-15.3FOhioHealth Arthur G.H. Bing, MD, Cancer CenterGlucose [Mass/volume] in Serum or PlasmaOrdered By: Juan Rivera on 50-60-0349Hbguizi [Mass/Vol]91 mg/fY01-568GyaxvbuefChildren'S Hospital For Rehabilitation Comment on above:ADA recommended reference rangeRandom Glucose Reference Range is dependent on time and content of last meal. Glucose of more than 200 mg/dL in a nonstressed, ambulatory subject supports the diagnosisof Diabetes Mellitus. Hematocrit Auto (Bld) [Volume fraction]Ordered By: Juan Rivera on 09-12-2023 Hematocrit (Bld) [Volume fraction]29.5 %34.0-46.4FOhioHealth Arthur G.H. Bing, MD, Cancer CenterHemoglobin [Mass/volume] in BloodOrdered By: Juan Rivera on 09-12-2023 Hemoglobin (Bld) [Mass/Vol]10.0 g/dL11.8-15.4FOhioHealth Arthur G.H. Bing, MD, Cancer Center Leukocytes [#/volume] corrected for nucleated erythrocytes in Blood by Automated counOrdered By: Juan Rivera on 32-32-1574[facility] corrected for nucl RBC Auto (Bld) [#/Vol]2.2 10*3/uL3.8-11.6FOhioHealth Arthur G.H. Bing, MD, Cancer CenterLymphocytes Auto (Bld) [#/Vol]Ordered By: Juan Rivera on 12-39-7321Iuljjeaigyc (Bld) [#/Vol]0.2 10*3/uL1.00-4.8[facility] Hospital For RehabilitationLymphocytes/100 WBC Auto (Bld)Ordered By: Jaun Rivera on 38-36-4343Dplzwqblema/100 WBC (Bld)9.5 %. [facility] Auto (RBC) [Entitic mass]Ordered By: Juan Rivera on 84-60-0811UAA (RBC) [Entitic mass]32.6 pg24.7-34.3FOhioHealth Arthur G.H. Bing, MD, Cancer CenterMCHC Auto (RBC) [Mass/Vol]Ordered By: Juan Rivera on 09-12-2023 MCHC (RBC) [Mass/Vol]33.8 g/dL32.0-35.0[facility] For RehabilitationMCV Auto (RBC) [Entitic vol]Ordered By: Juan Rivera on 63-13-5067MBE (RBC) [Entitic vol]96.4 bJ24-425MnuqcuaaxChildren'S Hospital For RehabilitationMonocyte distribution width [Entitic volume] in Blood by AutomatedOrdered By: Juan Rivera on 09-12-2023 Monocyte distribution width Auto (Bld) [Entitic vol]20.93 %0.00-20.00[facility] For RehabilitationComment on above:For adults in ED, MDW > 20.0 may be associated with a higher risk of sepsis during the first 12 hrs of hospital admissionMonocytes Auto (Bld) [#/Vol]Ordered By: Juan Rivera on 09-12-2023 Monocytes (Bld) [#/Vol]0.3 10*3/uL0.0-0.8[facility] Monocytes/100 WBC Auto (Bld)Ordered By: Juan Rivera on 16-42-3152Wtwvkrwcq/100 WBC (Bld)13.8 %.[facility] For RehabilitationNeutrophils Auto (Bld) [#/Vol] Ordered By: Juan Rivera on 55-03-4941Jwvagpcyfzr (Bld) [#/Vol]1.6 10*3/uL 1.8-7.7FOhioHealth Arthur G.H. Bing, MD, Cancer CenterNeutrophils/100 WBC Auto (Bld)Ordered By: Juan Rivera on 39-15-4619Brcnpwipxhw/100 WBC (Bld)75.1 %.[facility] For RehabilitationNo Panel InformationOrdered By: Juan Rivera on 53-10-0005Vybfqrxwk GFR (CKD-EPI)> 60.0 mL/MinChildren'S Hospital For Rehabilitation Pharmacy Creatinine Clearance (Chem[address] [place] [address]> 60.0 mL/[facility] [place] [address] Nucleated erythrocytes [Presence] in Blood by Automated countOrdered By: Juan Rivera on 71-20-0859Pqvzlhkvp RBC Auto Ql (Bld)0.1 /100{WBC}0-0.5FOhioHealth Arthur G.H. Bing, MD, Cancer CenterPlatelet adequacy [Presence] in Blood by Light microscopy Ordered By: Juan Rivera on 10-93-9882Ashpjecpr LM Ql (Bld)DecreasedNormal [facility] For RehabilitationPlatelet mean volume Auto (Bld) [Entitic vol] Ordered By: Juan Rivera on 54-63-3881Ehzyvbga mean volume (Bld) [Entitic vol] 8.6 fL6.3-10.7Fire[facility] Medical CenterPlatelet morphology finding [Identifier] in BloodOrdered By: Juan Rivera on 51-69-3863Ooujeozd morphology finding Nom (Bld)N/AFOhioHealth Arthur G.H. Bing, MD, Cancer CenterPlatelets Auto (Bld) [#/Vol]Ordered By: Juan Rivera on 79-27-6417Zdqxqbkkx (Bld) [#/Vol]36 10*3/uL 150-450Children[facility] Hospital For RehabilitationComment on above:Critical valueresult calledat 0948 on 09/12/23Platelets Large [Presence] in Blood by Light microscopy Ordered By: Juan Rivera on 89-47-0111Qdjshbfhf Large LM Ql (Bld)Slight [facility] For RehabilitationPotassium [Moles/volume] in Serum or Plasma Ordered By: Juan Rivera on 80-89-9330Zkqqzgdqs [Moles/Vol]3.5 mmol/L3.5-5.1 [facility] For RehabilitationRB Auto (Bld) [#/Vol]Ordered By: Juan Rivera on 70-35-7258WQU (Bld) [#/Vol]3.06 10*6/uL3.60-5.00[facility] For RehabilitationRB morphologyOrdered By: Juan Rivera on 80-01-6149EKM morphology finding Nom (Bld)N/[facility] CenterRespiratory pathogens DNA and RNA panel - Nasopharynx by JOHANN with non-probe detectionOrdered By: Juan Rivera on 67-35-9045Ibnlrxedgez pathogens DNA and RNA panel JOHANN+non-probe (Nph)Summa Healtherum or plasma anion gap determination Ordered By: Juan Rivera on 02-94-0342Oyrrl gap [Moles/Vol]10.4 mmol/L6.0-15.0 Summa Healthodium [Moles/volume] in Serum or PlasmaOrdered By: Juan Rivera on 10-94-9974Ckuoxr [Moles/Vol]140 mmol/E302-557McdzerkgfChildren'S Hospital For RehabilitationTeardrop cell detectionOrdered By: Juan Rivera on 90-12-8926Aicddrbhku LM Ql (Bld)SlightChildren'S Hospital For RehabilitationTroponin I.cardiac [Mass/volume] in Serum or Plasma by Detection limit <= 0.01 ng/Ordered By: Juan Rivera on 24-31-7967Zyrjhqxj I.cardiac DL <= 0.01 ng/mL [Mass/Vol] 4.4 pg/mL0.0-15.0[facility] For RehabilitationUrea nitrogen [Mass/volume] in Serum or PlasmaOrdered By: Juan Rivera on 41-92-6114Wvlz nitrogen [Mass/Vol] 17 mg/dL7-25Children[facility] Hospital For RehabilitationWBC Auto (Bld) [#/Vol]Ordered By: Juan Rivera on 18-47-7352YIA (Bld) [#/Vol]2.2 10*3/uL3.8-11.6FOhioHealth Arthur G.H. Bing, MD, Cancer CenterImmunoglobulin light chains.free panel (S)Ordered By: Nava Carr on 81-64-0683Bhebxmvatdivrs light chains.kappa [Mass/Vol]mg/dLLow0.33 - 1.94 mg/dLUnTrinity Health System Twin City Medical CenterImmunoglobulin light chains.kappa/Immunoglobulin light chains.lambda (S) [Mass ratio][facility] HospitalComment on above:One or more analytes used in this calculation is outside of the analytical measurement range. Calculation cannot be performed. Immunoglobulin light chains.lambda [Mass/Vol]mg/dLLow0.57 - 2.63 mg/dLUnTrinity Health System Twin City Medical CenterInterpretation and review of laboratory resultsAbnormal [facility] HospitalUndetected antigen excess is a rare event but [...] anomalies should be discussed with the testing laboratory.[facility] HospitalUnTrinity Health System Twin City Medical CenterComprehensive metabolic 2000 panelon 89-21-5677Uumvajm BCP dye [Mass/Vol]3.5 g/dL3.4 - 5.0 g/dLUnTrinity Health System Twin City Medical CenterALP [Catalytic activity/Vol]126 U/L33 - 136 U/[facility] CenterALT With P-5'-P [Catalytic activity/Vol]18 U/L7 - 45 U/[facility] on above:Patients treated with Sulfasalazine may generate falsely decreased results for ALT.Anion gap [Moles/Vol]11 mmol/L10 - 20 mmol/L [facility] HospitalAST With P-5'-P [Catalytic activity/Vol]22 U/L9 - 39 U/[facility] CenterBilirubin [Mass/Vol]1.0 mg/dL0.0 - 1.2 mg/dLUnTrinity Health System Twin City Medical CenterCalcium [Mass/Vol]8.8 mg/dL8.6 - 10.3 mg/dLUnTrinity Health System Twin City Medical CenterChloride [Moles/Vol]107 mmol/L98 - 107 mmol/[facility] CenterCO2 [Moles/Vol]27 mmol/L21 - 32 mmol/L [facility] HospitalCreatinine [Mass/Vol]0.48 mg/dLLow0.50 - 1.05 mg/dLUnTrinity Health System Twin City Medical CenterGFR/1.73 sq M.predicted MDRD (S/P/Bld) [Vol rate/Area]- PINFUniParkview Health on above: Calculations of estimated GFR are performed using the 2020 CKD-EPI Study Refit equation without therace variable for the IDMS-Traceable creatinine methods. https://jasn.asnjournals.org/content//ASN.7544873807 Glucose [Mass/Vol]105 mg/xFAqph49 - 99 mg/dLUnTrinity Health System Twin City Medical Center Interpretation and review of laboratory resultsAbnormalUniTriHealth McCullough-Hyde Memorial HospitalPotassium [Moles/Vol]3.8 mmol/L3.5 - 5.3 mmol/[facility] CenterProtein [Mass/Vol]5.0 g/dLLow6.4 - 8.2 g/dLUnTrinity Health System Twin City Medical CenterSodium [Moles/Vol]141 mmol/L136 - 145 mmol/[facility] CenterUrea nitrogen [Mass/Vol]13 mg/dL6 - 23 mg/dLUnTrinity Health System Twin City Medical CenterUnTrinity Health System [facility] City Medical CenterImmunoglobulins (IgG, IgA, IgM)Ordered By: Ligia Hi on 68-92-8133PvU [Mass/Vol]mg/dLLow70 - 400 mg/dLUnTrinity Health System Twin City Medical CenterIgG [Mass/Vol]338 mg/yDKrg008 - 1600 mg/dLUnTrinity Health System Twin City Medical CenterIgM [Mass/Vol]6 mg/dLLow40 - 230 mg/dLUnTrinity Health System Twin City Medical CenterInterpretation and review of laboratory resultsAbnoKettering Health HamiltonMONOCLONAL PROTEINS MAY CAUSE FALSELY LOW RESULTS IN THIS ASSAY. SERUM PROTEIN ELECTROPHORESIS SHOULD BE DONE THE FIRST TEST TO EVALUATE MONOCLONAL GAMMOPATHY.[facility] W Auto Differential panel (Bld)on 40-67-1125Ndbqkadlmvi distribution width (RBC) [Ratio]15.5 %High11.5 - 14.5 % [facility] HospitalHematocrit (Bld) [Volume fraction]26.7 %Low36.0 - 46.0 %[facility] HospitalHemoglobin (Bld) [Mass/Vol]8.8 g/dLLow 12.0 - 16.0 g/dLUnTrinity Health System Twin City Medical CenterImhannibal regional hospital granulocytes (Bld) [#/Vol]0.01 10*3/uLUnBluffton Hospital granulocytes/100 WBC (Bld)0.7 %0.0 - 0.9 %[facility] HospitalComment on above: Immature Granulocyte Count (IG) includes promyelocytes, myelocytes and metamyelocytes but does not include bands. Percent differential counts (%) should be interpreted in the context of the absolute cell counts (cells/UL). Interpretation and review of laboratory resultsAbnoKettering Health HamiltonMCH (RBC) [Entitic mass]32.2 pg26.0 - 34.0 pgUnTrinity Health System Twin City Medical CenterMCHC (RBC) [Mass/Vol]33.0 g/dL32.0 - 36.0 g/dLUnSt. Vincent HospitalV (RBC) [Entitic vol]98 fL80 - 100 fLUniTriHealth McCullough-Hyde Memorial HospitalNucleated RBC/100 WBC (Bld) [Ratio]0.0 %[facility] HospitalPlatelet mean volume (Bld) [Entitic vol]11.4 fL7.5 - 11.5 fLUniTriHealth McCullough-Hyde Memorial HospitalPlatelets (Bld) [#/Vol]22 10*3/uLCritically lowUnTrinity Health System Twin City Medical CenterRB (Bld) [#/Vol]2.73 10*6/uLLowChillicothe HospitalWBC (Bld) [#/Vol]1.5 10*3/uLOhio State Health SystemThe previously reported component Neutrophils % is no [...] component Absolute Basophils is no longer being reported.[facility]-reactive proteinon 90-50-9550JLF [Mass/Vol]6.43 mg/dLHighNINF - 1.00 mg/dLUnTrinity Health System Twin City Medical CenterCB W Auto Differential panel (Bld)on 84-52-8304Elbdjkzdi (Bld) [#/Vol]0.00 10*3/uL [facility] HospitalBasophils/100 WBC (Bld)0.0 %0.0 - 2.0 % [facility] HospitalEosinophils (Bld) [#/Vol]0.16 10*3/uLUnTrinity Health System Twin City Medical CenterEosinophils/100 WBC (Bld)11.1 %0.0 - 6.0 %[facility] HospitalErythrocyte distribution width (RBC) [Ratio]15.5 %High11.5 - 14.5 %[facility] HospitalHematocrit (Bld) [Volume fraction]25.7 %Low36.0 - 46.0 %[facility] HospitalHemoglobin (Bld) [Mass/Vol]8.1 g/dLLow12.0 - 16.0 g/dLUnTrinity Health System Twin City Medical CenterImhannibal regional hospital granulocytes (Bld) [#/Vol]0.01 10*3/uLChillicothe HospitalImhannibal regional hospital granulocytes/100 WBC (Bld)0.7 %0.0 - 0.9 %[facility] Interpretation and review of laboratory resultsAbnoalUniTriHealth McCullough-Hyde Memorial HospitalLymphocytes (Bld) [#/Vol]0.08 10*3/[facility] HospitalLymphocytes/100 WBC (Bld)5.6 %13.0 - 44.0 %[facility] HospitalMCH (RBC) [Entitic mass]31.3 pg26.0 - 34.0 pgUnTrinity Health System Twin City Medical CenterMCHC (RBC) [Mass/Vol]31.5 g/dLLow32.0 - 36.0 g/dLChillicothe HospitalMCV (RBC) [Entitic vol]99 fL80 - 100 [facility] CenterMonocytes (Bld) [#/Vol]0.19 10*3/[facility] Monocytes/100 WBC (Bld)13.2 %2.0 - 10.0 %[facility] Neutrophils (Bld) [#/Vol]1.00 10*3/[facility] Neutrophils/100 WBC (Bld)69.4 %40.0 - 80.0 %[facility] Nucleated RBC/100 WBC (Bld) [Ratio]0.0 %[facility] Platelet mean volume (Bld) [Entitic vol]12.9 fLHigh7.5 - 11.5 [facility] CenterPlatelets (Bld) [#/Vol]18 10*3/uLCritically lowChillicothe HospitalRBC (Bld) [#/Vol]2.59 10*6/uLLowChillicothe HospitalWBC (Bld) [#/Vol]1.4 10*3/[facility] HospitalCRP [Mass/Vol]on 29-80-5992Jygqjwsqlfktnt and review of laboratory resultsAbGlenbeigh HospitalComprehensive metabolic 2000 panelon 08-13-2023 Albumin BCP dye [Mass/Vol]2.8 g/dLLow3.4 - 5.0 g/dLChillicothe HospitalAL [Catalytic activity/Vol]72 U/L33 - 136 U/LUniversity Hospitals of ClevelandALT With P-5'-P [Catalytic activity/Vol]16 U/L7 - 45 U/[facility] CenterAnion gap [Moles/Vol]9 mmol/LLow10 - 20 mmol/[facility] CenterAST With P-5'-P [Catalytic activity/Vol]16 U/L9 - 39 U/L [facility] HospitalBilirubin [Mass/Vol]1.4 mg/dLHigh0.0 - 1.2 mg/dLUnTrinity Health System Twin City Medical CenterCalcium [Mass/Vol]8.4 mg/dLLow8.6 - 10.6 mg/dLUnTrinity Health System Twin City Medical CenterChloride [Moles/Vol]106 mmol/L98 - 107 mmol/[facility] CenterCO2 [Moles/Vol]27 mmol/L21 - 32 mmol/L [facility] HospitalCreatinine [Mass/Vol]0.53 mg/dL0.50 - 1.05 mg/dLUnTrinity Health System Twin City Medical CenterGFR/1.73 sq M.predicted MDRD (S/P/Bld) [Vol rate/Area]- PINFUniTriHealth McCullough-Hyde Memorial HospitalGlucose [Mass/Vol]134 mg/hAWssb44 - 99 mg/dLUnTrinity Health System Twin City Medical CenterInterpretation and review of laboratory resultsAbnoalUGrand Lake Joint Township District Memorial HospitalPotassium [Moles/Vol]3.6 mmol/L3.5 - 5.3 mmol/[facility] CenterProtein [Mass/Vol]4.3 g/dLLow6.4 - 8.2 g/dLUnTrinity Health System Twin City Medical CenterSodium [Moles/Vol]138 mmol/L136 - 145 mmol/[facility] CenterUrea nitrogen [Mass/Vol]12 mg/dL6 - 23 mg/dLUnTrinity Health System Twin City Medical CenterFerritin on 07-66-9705Focxxkgc [Mass/Vol]101 ng/mL8 - 150 ng/mLUnTrinity Health System Twin City Medical CenterFerritin [Mass/Vol]on 90-31-8729Bhwezcrtfxjscs and review of laboratory resultsNoKettering Health HamiltonFibrinogenon 69-54-4186Yticttqzyd Coag (PPP) [Mass/Vol]230 mg/dL200 - 400 mg/dLUnAudie L. Murphy Memorial VA Hospitalveland Fibrinogen Coag (PPP) [Mass/Vol]on 09-83-4322Gddmrmlmgpzoyh and review of laboratory resultsNoDetwiler Memorial HospitalGlucose Test strip manual (Bld) [Mass/Vol]on 15-40-5266Zcmiuzi [Mass/Vol]161 mg/rFJqhu63 - 99 mg/dLChillicothe Hospital Interpretation and review of laboratory resultsAbTrumbull Memorial HospitalGlucose [Mass/Vol]104 mg/dVArgq68 - 99 mg/dLChillicothe HospitalInterpretation and review of laboratory resultsAbTrumbull Memorial HospitalLDH Lactate to pyruvate reaction [Catalytic activity/Vol]on 08-13-2023 Interpretation and review of laboratory resultsNoDetwiler Memorial HospitalLactate dehydrogenaseon 19-43-0728LAP Lactate to pyruvate reaction [Catalytic activity/Vol]179 U/L84 - 246 U/L [facility] HospitalMagnesiumon 94-77-8441Csbhlikck [Mass/Vol]1.72 mg/dL1.60 - 2.40 mg/dLUnTrinity Health System Twin City Medical CenterNo Panel Informationon 05-04-6777FgahwehbcdCleveland Clinic [facility] Interpretation and review of laboratory resultsNoDetwiler Memorial HospitalPhosphoruson 62-78-9212Jgegnswdt [Mass/Vol]3.9 mg/dL2.5 - 4.9 mg/dLChillicothe HospitalRB shape Nom (Bld)on 44-28-7986Feqkbylymt LM Ql (Bld)FewUnKindred Hospital Lima morphology finding Nom (Bld)See Kettering Health PrebleUric Acid on 85-44-3619Osdtm [Mass/Vol]2.8 mg/dL2.3 - 6.7 mg/dLChillicothe HospitalBacteria identified Cx Nom (Bld)on 81-82-7091Atukpfsuziaviz and review of laboratory resultsNoDetwiler Memorial HospitalC-reactive proteinon 70-98-1470TNU [Mass/Vol]7.01 mg/dLHighNINF - 1.00 mg/dLChillicothe HospitalCBC W Auto Differential panel (Bld)on 24-91-1248Vegkebimawa distribution width (RBC) [Ratio]15.6 %High11.5 - 14.5 % [facility] HospitalHematocrit (Bld) [Volume fraction]24.8 %Low36.0 - 46.0 %[facility] HospitalHemoglobin (Bld) [Mass/Vol]8.0 g/dLLow 12.0 - 16.0 g/dLUnTrinity Health System Twin City Medical CenterImhannibal regional hospital granulocytes (Bld) [#/Vol]0.02 10*3/uLRegency Hospital Cleveland West granulocytes/100 WBC (Bld)2.3 %High0.0 - 0.9 %[facility] HospitalMCH (RBC) [Entitic mass]31.6 pg26.0 - 34.0 pgUnTrinity Health System Twin City Medical CenterMCHC (RBC) [Mass/Vol]32.3 g/dL32.0 - 36.0 g/dLChillicothe HospitalMCV (RBC) [Entitic vol]98 fL80 - 100 fLUniTriHealth McCullough-Hyde Memorial HospitalNucleated RBC/100 WBC (Bld) [Ratio]0.0 %[facility] HospitalPlatelet mean volume (Bld) [Entitic vol]11.9 fLHigh7.5 - 11.5 [facility] CenterniTriHealth McCullough-Hyde Memorial Hospital Platelets (Bld) [#/Vol]13 10*3/uLCritically lowChillicothe Hospital RBC (Bld) [#/Vol]2.53 10*6/uLLowChillicothe HospitalWBC (Bld) [#/Vol]0.9 10*3/uLCritically lowChillicothe HospitalUnTrinity Health System Twin City Medical CenterCRP [Mass/Vol]on 38-24-9468Qgxkvculdrizlv and review of laboratory resultsAbnormalUniTriHealth McCullough-Hyde Memorial HospitalComprehensive metabolic 2000 panelon 86-87-3478Bzhtgjq BCP dye [Mass/Vol]2.7 g/dLLow3.4 - 5.0 g/dLUnTrinity Health System Twin City Medical CenterALP [Catalytic activity/Vol]68 U/L33 - 136 U/[facility] CenterALT With P-5'-P [Catalytic activity/Vol]19 U/L7 - 45 U/[facility] CenterAnion gap [Moles/Vol]11 mmol/L10 - 20 mmol/[facility] CenterAST With P-5'-P [Catalytic activity/Vol]14 U/L9 - 39 U/[facility] CenterBilirubin [Mass/Vol]1.4 mg/dLHigh0.0 - 1.2 mg/dLUnTrinity Health System Twin City Medical CenterCalcium [Mass/Vol]7.8 mg/dLLow8.6 - 10.6 mg/dLUnTrinity Health System Twin City Medical CenterChloride [Moles/Vol]108 mmol/LHigh98 - 107 mmol/[facility] CenterCO2 [Moles/Vol]26 mmol/L21 - 32 mmol/[facility] CenterCreatinine [Mass/Vol]0.70 mg/dL0.50 - 1.05 mg/dLUnTrinity Health System Twin City Medical CenterGFR/1.73 sq M.predicted MDRD (S/P/Bld) [Vol rate/Area]- PINFUniTriHealth McCullough-Hyde Memorial HospitalGlucose [Mass/Vol]145 mg/qUCkkf42 - 99 mg/dLUnTrinity Health System Twin City Medical CenterPotassium [Moles/Vol]3.6 mmol/L3.5 - 5.3 mmol/[facility] CenterProtein [Mass/Vol]4.3 g/dLLow6.4 - 8.2 g/dLUnTrinity Health System Twin City Medical CenterSodium [Moles/Vol]141 mmol/L136 - 145 mmol/[facility] CenterUrea nitrogen [Mass/Vol]15 mg/dL6 - 23 mg/dLUnTrinity Health System Twin City Medical CenterFerritinon 15-30-3073Quofkded [Mass/Vol]98 ng/mL8 - 150 ng/mLUnTrinity Health System Twin City Medical CenterFerritin [Mass/Vol]on 73-31-4545Gycyrelnuaeowa and review of laboratory resultsNormalUniTriHealth McCullough-Hyde Memorial HospitalFibrinogenon 99-04-4815Bhaqhvjxio Coag (PPP) [Mass/Vol]224 mg/dL200 - 400 mg/dLUnAudie L. Murphy Memorial VA HospitalvelandFibrinogen Coag (PPP) [Mass/Vol]on 08-12-2023 Interpretation and review of laboratory resultsNormalUCherrington HospitalGlucose Test strip manual (Bld) [Mass/Vol]on 22-31-8114Pnfpegc [Mass/Vol]89 mg/dL74 - 99 mg/dLChillicothe HospitalInterpretation and review of laboratory resultsNormal [facility] DaytonLD Lactate to pyruvate reaction [Catalytic activity/Vol]on 27-37-2921Dyfosymadadhkn and review of laboratory resultsNoDetwiler Memorial HospitalLaboratory - Microbiology and Antimicrobial susceptibility on 94-49-5419Yvfpfcne identified Cx Nom (Bld)No growth at 4 days - FINAL REPORT [facility] HospitalLactate dehydrogenaseon 39-23-6997XIA Lactate to pyruvate reaction [Catalytic activity/Vol]159 U/L84 - 246 U/LUnTrinity Health System Twin City Medical CenterMagnesiumon 50-51-8768Onbfoacgr [Mass/Vol]1.80 mg/dL1.60 - 2.40 mg/dLUnTrinity Health System Twin City Medical CenterManual differential performed Ql (Bld)on 57-86-0933Gtwifsffg (Bld) [#/Vol]0.00 10*3/[facility] HospitalBasophils/100 WBC (Bld)0.0 %0.0 - 2.0 %[facility] HospitalCells Counted Total (Bld) [#]116 {cells}[facility] HospitalEosinophils (Bld) [#/Vol]0.12 10*3/[facility] Eosinophils/100 WBC (Bld)12.9 %0.0 - 6.0 %[facility] Lymphocytes (Bld) [#/Vol]0.07 10*3/[facility] Lymphocytes/100 WBC (Bld)7.8 %13.0 - 44.0 %[facility] Monocytes (Bld) [#/Vol]0.05 10*3/[facility] Monocytes/100 WBC (Bld)6.0 %2.0 - 10.0 %[facility] Ovalocytes LM Ql (Bld)FewUnTrinity Health System Twin City Medical CenterRB morphology finding Nom (Bld)See BelowUnTrinity Health System Twin City Medical CenterSegmented neutrophils (Bld) [#/Vol]0.66 10*3/uLLowUnTrinity Health System Twin City Medical CenterSegmented neutrophils/100 WBC (Bld)73.3 %40.0 - 80.0 %[facility] HospitalNo Panel Informationon 14-73-6920Vgozfgfyaxiujr and review of laboratory resultsAbnoGuernsey Memorial HospitalUnTrinity Health System Twin [facility] Medical CenterUnTrinity [facility] Medical CenterInterpretation and review of laboratory resultsAbnoGuernsey Memorial HospitalInterpretation and review of laboratory results NormalUnCleveland Clinic Avon Hospital Phosphoruson 97-49-2039Mhigtuazk [Mass/Vol]3.3 mg/dL2.5 - 4.9 mg/dLUnTrinity Health System Twin City Medical CenterUric Acidon 57-24-6439Mcysa [Mass/Vol]2.2 mg/dLLow2.3 - 6.7 mg/dLUnSalem Regional Medical Center-reactive proteinon 06-93-2040LWI [Mass/Vol]4.57 mg/dLHighNINF - 1.00 mg/dLUnTrinity Health System Twin City Medical CenterCB W Auto Differential panel (Bld)on 91-28-1997Dgffiedqw (Bld) [#/Vol]0.00 10*3/uL [facility] HospitalBasophils/100 WBC (Bld)0.0 %0.0 - 2.0 % [facility] HospitalEosinophils (Bld) [#/Vol]0.08 10*3/uLUnTrinity Health System Twin City Medical CenterEosinophils/100 WBC (Bld)7.5 %0.0 - 6.0 %[facility] HospitalErythrocyte distribution width (RBC) [Ratio]15.2 %High11.5 - 14.5 %[facility] HospitalHematocrit (Bld) [Volume fraction]26.1 %Low36.0 - 46.0 %[facility] HospitalHemoglobin (Bld) [Mass/Vol]8.3 g/dLLow12.0 - 16.0 g/dLUnWoodland Heights Medical Center of ClevelandImhannibal regional hospital granulocytes (Bld) [#/Vol]0.01 10*3/[facility] HospitalImkyture granulocytes/100 WBC (Bld)0.9 %0.0 - 0.9 %[facility] Interpretation and review of laboratory resultsAbMiami Valley HospitalLymphocytes (Bld) [#/Vol]0.07 10*3/[facility] HospitalLymphocytes/100 WBC (Bld)6.6 %13.0 - 44.0 %[facility] CenterH (RBC) [Entitic mass]32.7 pg26.0 - 34.0 pgChillicothe HospitalMCHC (RBC) [Mass/Vol]31.8 g/dLLow32.0 - 36.0 g/dLChillicothe HospitalMCV (RBC) [Entitic vol]103 fJUaps18 - 100 [facility] CenterMonocytes (Bld) [#/Vol]0.16 10*3/[facility] Monocytes/100 WBC (Bld)15.1 %2.0 - 10.0 %[facility] Neutrophils (Bld) [#/Vol]0.74 10*3/[facility] Neutrophils/100 WBC (Bld)69.9 %40.0 - 80.0 %[facility] Nucleated RBC/100 WBC (Bld) [Ratio]0.0 %[facility] Platelet mean volume (Bld) [Entitic vol]11.3 fL7.5 - 11.5 [facility] CenterPlatelets (Bld) [#/Vol]17 10*3/uLCritically lowChillicothe HospitalRBC (Bld) [#/Vol]2.54 10*6/[facility] HospitalWBC (Bld) [#/Vol]1.1 10*3/[facility] HospitalCRP [Mass/Vol]on 71-08-6995Qtjxvtpwubbjcv and review of laboratory resultsAbMiami Valley HospitalComprehensive metabolic 2000 panelon 62-38-9418Qngyecv BCP dye [Mass/Vol]2.8 g/dLLow3.4 - 5.0 g/dLUnTrinity Health System Twin City Medical CenterALP [Catalytic activity/Vol]70 U/L33 - 136 U/[facility]ALT With P-5'-P [Catalytic activity/Vol]21 U/L7 - 45 U/[facility] CenterAnion gap [Moles/Vol]13 mmol/L10 - 20 mmol/[facility] CenterAST With P-5'-P [Catalytic activity/Vol]18 U/L9 - 39 U/[facility] CenterBilirubin [Mass/Vol]1.8 mg/dLHigh0.0 - 1.2 mg/dLUnTrinity Health System Twin City Medical CenterCalcium [Mass/Vol]8.1 mg/dLLow8.6 - 10.6 mg/dLUnTrinity Health System Twin City Medical CenterChloride [Moles/Vol]106 mmol/L98 - 107 mmol/[facility] CenterCO2 [Moles/Vol]23 mmol/L21 - 32 mmol/[facility] CenterCreatinine [Mass/Vol]0.58 mg/dL0.50 - 1.05 mg/dLUnTrinity Health System Twin City Medical CenterGFR/1.73 sq M.predicted MDRD (S/P/Bld) [Vol rate/Area]- PINFUniTriHealth McCullough-Hyde Memorial HospitalGlucose [Mass/Vol]135 mg/vMGdud45 - 99 mg/dLUnTrinity Health System Twin City Medical CenterPotassium [Moles/Vol]3.6 mmol/L3.5 - 5.3 mmol/[facility] CenterProtein [Mass/Vol]4.3 g/dLLow6.4 - 8.2 g/dLUnTrinity Health System Twin City Medical CenterSodium [Moles/Vol]138 mmol/L136 - 145 mmol/[facility] CenterUrea nitrogen [Mass/Vol]17 mg/dL6 - 23 mg/dLChillicothe HospitalFerritinon 48-21-8599Spzaqmbk [Mass/Vol] 100 ng/mL8 - 150 ng/mLUnTrinity Health System Twin City Medical CenterFerritin [Mass/Vol]on 18-95-7314Itzwkeovnjzlqe and review of laboratory resultsNormalUniTriHealth McCullough-Hyde Memorial HospitalFibrinogenon 24-17-8075Ngqwekpfkt Coag (PPP) [Mass/Vol]240 mg/dL200 - 400 mg/dLChillicothe HospitalFikansas city va medical center Coag (PPP) [Mass/Vol]on 91-83-1386Gjjcthwohtcivd and review of laboratory resultsNormal [facility] DaytonGlucose Test strip manual (Bld) [Mass/Vol]on 38-73-0182Oigavdo [Mass/Vol]131 mg/lFGpjj09 - 99 mg/dLUnTrinity Health System [facility] Medical CenterInterpretation and review of laboratory resultsAbTrumbull Memorial HospitalGlucose [Mass/Vol]90 mg/dL74 - 99 mg/dLChillicothe HospitalInterpretation and review of laboratory resultsNoDetwiler Memorial HospitalLD Lactate to pyruvate reaction [Catalytic activity/Vol]on 62-85-3865Secagpdjsufbbs and review of laboratory resultsNoDetwiler Memorial HospitalLactate dehydrogenaseon 12-73-3806GHS Lactate to pyruvate reaction [Catalytic activity/Vol]175 U/L84 - 246 U/LUnTrinity Health System [facility] Center Magnesiumon 19-27-1171Nsewohzav [Mass/Vol]1.47 mg/dLLow1.60 - 2.40 mg/dL [facility] HospitalNo Panel Informationon 14-70-8522PiejfxoorjCleveland Clinic Avon HospitalInterpretation and review of laboratory resultsAbTrumbull Memorial HospitalPhosphate [Mass/Vol]on 43-01-3961Izqdmvkxivlcec and review of laboratory resultsNoKettering Health HamiltonPhosphoruson 83-03-2539Yfvzorhqz [Mass/Vol]3.4 mg/dL2.5 - 4.9 mg/dLAultman Orrville Hospital shape Nom (Bld)on 62-88-4974Klzbymhrhr LM Ql (Bld)FewUnKindred Hospital Lima morphology finding Nom (Bld)See BelowUnTrinity Health System Twin City Medical CenterUric Acidon 97-83-2634Mvjvf [Mass/Vol]2.1 mg/dLLow2.3 - 6.7 mg/dLUnTrinity Health System Twin City Medical CenterUrinalysis complete panel (U)on 17-94-9515Srexsuijlb (U)ClearClearUnTrinity Health System Twin City Medical CenterBilirubin (U) [Mass/Vol]NegativeNEGATIVEUnTrinity Health System [facility] Medical CenterColor (U)StrawStraw, YellowUnTrinity Health System Twin City Medical CenterGlucose Auto test strip (U) [Mass/Vol] NegativeNEGATIVE mg/dLUnTrinity Health System [facility] CenterInterpretation and review of laboratory resultsAbnormalUniversCommunity Hospital EastKetones (U) [Mass/Vol]NegativeNEGATIVE mg/dLUnTrinity Health System [facility] Medical CenterLeukocyte esterase Auto test strip Ql (U)NegativeNEGATIVEChillicothe Hospital Nitrite Auto test strip Ql (U)NegativeNEGATIVEChillicothe Hospital pH (U)6.0 [pH]5.0, 5.5, 6.0, 6.5, 7.0, 7.5, 8.0UnTr[facility] Protein (U) [Mass/Vol]NegativeNEGATIVE mg/dLUnTrinity Health System [facility] Medical CenterRBC (U) [#/Vol]NegativeNEGATIVEUnTrinity Health System [facility] Medical CenterSpecific gravity (U) [Rel density]1.515Qxwjtkag1.005 - 1.035UnTr[facility] Urobilinogen (U) [Mass/Vol]mg/dLNINF - 2.0 mg/dLUnTrinity Health System [facility] Medical CenterUnTrinity Health System [facility] Medical CenterC-reactive proteinon 50-81-7103FKS [Mass/Vol]8.19 mg/dLHighNINF - 1.00 mg/dLUnTrinity Health System [facility] Medical CenterCBC W Auto Differential panel (Bld)on 49-18-8881Xulcpmwhjhy distribution width (RBC) [Ratio]15.0 %High11.5 - 14.5 %[facility] HospitalHematocrit (Bld) [Volume fraction]28.3 %Low36.0 - 46.0 %[facility] Hemoglobin (Bld) [Mass/Vol]9.2 g/dLLow12.0 - 16.0 g/dLUnTrinity Health System [facility] Medical CenterImmature granulocytes (Bld) [#/Vol]0.01 10*3/uLUnTrinity Health System Twin City Medical CenterImmature granulocytes/100 WBC (Bld)1.2 %High0.0 - 0.9 %[facility] CenterH (RBC) [Entitic mass]33.1 pg26.0 - 34.0 pgUnTrinity Health System Twin City Medical CenterMCHC (RBC) [Mass/Vol]32.5 g/dL32.0 - 36.0 g/dLUnSt. Vincent HospitalV (RBC) [Entitic vol]102 zFDcxb66 - 100 fLUniTriHealth McCullough-Hyde Memorial HospitalNucleated RBC/100 WBC (Bld) [Ratio]0.0 %[facility] mean volume (Bld) [Entitic vol]12.8 fLHigh7.5 - 11.5 fLUniTriHealth McCullough-Hyde Memorial HospitalPlateprovidence behavioral health hospital (Bld) [#/Vol]22 10*3/uL Critically lowUnTrinity Health System Twin City Medical CenterRB (Bld) [#/Vol]2.78 10*6/uLLow [facility] HospitalWBC (Bld) [#/Vol]0.8 10*3/uLCritically low [facility] HospitalUnTrinity Health System [facility] CenterCRP [Mass/Vol] on 60-97-9448Svrgtdemmotimn and review of laboratory resultsAbnormalUniTriHealth McCullough-Hyde Memorial HospitalComprehensive metabolic 2000 panelon 56-37-7954Xnhsmtz BCP dye [Mass/Vol]3.3 g/dLLow3.4 - 5.0 g/dLUnTrinity Health System [facility] Medical CenterAL [Catalytic activity/Vol]83 U/L33 - 136 U/[facility] CenterALT With P-5'-P [Catalytic activity/Vol]28 U/L7 - 45 U/[facility] CenterAnion gap [Moles/Vol]10 mmol/L10 - 20 mmol/[facility] CenterAST With P-5'-P [Catalytic activity/Vol]21 U/L9 - 39 U/[facility] CenterBilirubin [Mass/Vol]1.2 mg/dL0.0 - 1.2 mg/dLChillicothe HospitalCalcium [Mass/Vol]8.4 mg/dLLow8.6 - 10.6 mg/dLChillicothe HospitalChloride [Moles/Vol]107 mmol/L98 - 107 mmol/[facility] CenterCO2 [Moles/Vol]25 mmol/L21 - 32 mmol/[facility] CenterCreatinine [Mass/Vol]0.54 mg/dL0.50 - 1.05 mg/dLUnTrinity Health System [facility] Medical CenterGFR/1.73 sq M.predicted MDRD (S/P/Bld) [Vol rate/Area]- PINFUniTriHealth McCullough-Hyde Memorial HospitalGlucose [Mass/Vol]295 mg/oIJqcu50 - 99 mg/dLUnTrinity Health System [facility] Medical CenterPotassium [Moles/Vol]4.1 mmol/L3.5 - 5.3 mmol/[facility] CenterProtein [Mass/Vol]5.0 g/dLLow6.4 - 8.2 g/dLUnTrinity Health System Twin [facility] Medical CenterSodium [Moles/Vol]138 mmol/L136 - 145 mmol/[facility] CenterUrea nitrogen [Mass/Vol]16 mg/dL6 - 23 mg/dLUnTrinity Health System Twin City Medical CenterFerritinon 18-62-7981Drypmerc [Mass/Vol] 107 ng/mL8 - 150 ng/mLUnTrinity Health System Twin City Medical CenterFerritin [Mass/Vol]on 75-13-1025Xjdvhjjblrzhcb and review of laboratory resultsNoKettering Health HamiltonFibrinogenon 83-82-9425Whmrvmtrza Coag (PPP) [Mass/Vol]266 mg/dL200 - 400 mg/dLUnTrinity Health System Twin City Medical CenterFibrinogen Coag (PPP) [Mass/Vol]on 36-55-9454Iqrhhzxwbkicok and review of laboratory resultsNoal [facility] DaytonGlucose Test strip manual (Bld) [Mass/Vol]on 41-85-6501Wmsksur [Mass/Vol]126 mg/eXQbqz60 - 99 mg/dLUnTrinity Health System [facility] CenterInterpretation and review of laboratory resultsAbTrumbull Memorial HospitalGlucose [Mass/Vol]159 mg/jXCevf82 - 99 mg/dLUnTrinity Health System [facility] CenterInterpretation and review of laboratory resultsAbnormalUniversity Hospitals Laureate Psychiatric Clinic and Hospital – TulsaLD Lactate to pyruvate reaction [Catalytic activity/Vol]on 38-54-5333Jckieiguwrvdfm and review of laboratory resultsNoDetwiler Memorial HospitalLactate dehydrogenaseon 04-45-7132PKH Lactate to pyruvate reaction [Catalytic activity/Vol]189 U/L84 - 246 U/LUnTrinity Health System [facility] Center Magnesiumon 60-41-7979Cabvzwsju [Mass/Vol]1.94 mg/dL1.60 - 2.40 mg/dLChillicothe HospitalMagnesium [Mass/Vol]on 27-46-3856Gaesxhonirhkbx and review of laboratory resultsNormSt. Vincent HospitalManual differential performed Ql (Bld)on 55-19-5564Ptscgwmsu (Bld) [#/Vol]0.00 10*3/[facility] HospitalBasophils/100 WBC (Bld)0.0 %0.0 - 2.0 %[facility] HospitalCells Counted Total (Bld) [#]115 {cells}[facility] HospitalEosinophils (Bld) [#/Vol]0.02 10*3/[facility] HospitalEosinophils/100 WBC (Bld)2.6 %0.0 - 6.0 %[facility] HospitalLymphocytes (Bld) [#/Vol]0.04 10*3/[facility] HospitalLymphocytes/100 WBC (Bld)4.4 %13.0 - 44.0 %[facility] HospitalMonocytes (Bld) [#/Vol]0.03 10*3/[facility] Monocytes/100 WBC (Bld)4.3 %2.0 - 10.0 %[facility] Ovalocytes LM Ql (Bld)[facility] SouthwoodsRB morphology finding Nom (Bld)See BelowChillicothe HospitalSegmented neutrophils (Bld) [#/Vol]0.71 10*3/[facility] HospitalSegmented neutrophils/100 WBC (Bld)88.7 %40.0 - 80.0 %[facility] HospitalNo Panel Informationon 24-34-6269Tfiphhzsdfdtyu and review of laboratory resultsAbnormal [facility] HospitalUnTrinity Health System [facility] Medical CenterInterpretation and review of laboratory resultsAbnoalUniFostoria City HospitalUnTrinity Health System [facility] CenterPhosphoruson 56-87-4232Vsuicpmfl [Mass/Vol]2.4 mg/dLLow2.5 - 4.9 mg/dLUnTrinity Health System Twin [facility] Medical CenterUric Acidon 36-69-9566Iktsq [Mass/Vol]1.9 mg/dLLow2.3 - 6.7 mg/dL [facility]-reactive proteinon 17-71-3033SOV [Mass/Vol] 7.39 mg/dLHighNINF - 1.00 mg/dLUnTrinity Health System [facility] Medical CenterCB W Auto Differential panel (Bld)on 55-81-0251Fxrmzcncwvu distribution width (RBC) [Ratio]15.7 %High11.5 - 14.5 %[facility] HospitalHematocrit (Bld) [Volume fraction]27.3 %Low36.0 - 46.0 %[facility] Hemoglobin (Bld) [Mass/Vol]8.7 g/dLLow12.0 - 16.0 g/dLChillicothe HospitalImhannibal regional hospital granulocytes (Bld) [#/Vol]0.01 10*3/uLUnTrinity Health System Twin City Medical CenterImhannibal regional hospital granulocytes/100 WBC (Bld)1.2 %High0.0 - 0.9 %[facility] CenterH (RBC) [Entitic mass]32.3 pg26.0 - 34.0 pgUnSt. Vincent HospitalHC (RBC) [Mass/Vol]31.9 g/dLLow32.0 - 36.0 g/dL [facility] CenterV (RBC) [Entitic vol]102 gISmgt58 - 100 fL [facility] HospitalNucleated RBC/100 WBC (Bld) [Ratio]0.0 % [facility] HospitalPlatelet mean volume (Bld) [Entitic vol]12.1 fL High7.5 - 11.5 fLUniTriHealth McCullough-Hyde Memorial HospitalPlatelets (Bld) [#/Vol]22 10*3/uLCritically lowUnTrinity Health System Twin [facility] Medical CenterRBC (Bld) [#/Vol]2.69 10*6/uLLowUnTrinity Health System [facility] Medical CenterWBC (Bld) [#/Vol]0.9 10*3/uL Critically lowUnTrinity Health System Twin City Medical CenterUnTr[facility] CRP [Mass/Vol]on 58-74-9031Ppcphkyemqffys and review of laboratory results AbnormalUnTrinity Health System [facility] Medical CenterComprehensive metabolic 2000 panelon 14-12-0827Fysbaik BCP dye [Mass/Vol]2.9 g/dLLow3.4 - 5.0 g/dLUnTrinity Health System [facility] Medical CenterALP [Catalytic activity/Vol]73 U/L33 - 136 U/[facility] CenterALT With P-5'-P [Catalytic activity/Vol]27 U/L7 - 45 U/L [facility] HospitalAnion gap [Moles/Vol]12 mmol/L10 - 20 mmol/L [facility] HospitalAST With P-5'-P [Catalytic activity/Vol]31 U/L9 - 39 U/[facility] CenterBilirubin [Mass/Vol]1.7 mg/dLHigh0.0 - 1.2 mg/dLChillicothe HospitalCalcium [Mass/Vol]7.7 mg/dLLow8.6 - 10.6 mg/dLChillicothe HospitalChloride [Moles/Vol]108 mmol/LHigh98 - 107 mmol/[facility] CenterCO2 [Moles/Vol]26 mmol/L21 - 32 mmol/[facility] CenterCreatinine [Mass/Vol]0.59 mg/dL0.50 - 1.05 mg/dLUnTrinity Health System [facility] Medical CenterGFR/1.73 sq M.predicted MDRD (S/P/Bld) [Vol rate/Area]- PINFUniTriHealth McCullough-Hyde Memorial HospitalGlucose [Mass/Vol]99 mg/dL74 - 99 mg/dLUnTrinity Health System [facility] CenterInterpretation and review of laboratory resultsAbnormalUniTriHealth McCullough-Hyde Memorial Hospital Potassium [Moles/Vol]3.7 mmol/L3.5 - 5.3 mmol/[facility] Protein [Mass/Vol]4.3 g/dLLow6.4 - 8.2 g/dLChillic[facility] Hospital Sodium [Moles/Vol]142 mmol/L136 - 145 mmol/LUnTrinity Health System [facility] Urea nitrogen [Mass/Vol]15 mg/dL6 - 23 mg/dLMercer County Community HospitalFerritinon 24-61-8537Ugfhupgm [Mass/Vol]107 ng/mL8 - 150 ng/mLUnTrinity Health System Twin [facility] Medical CenterFerritin [Mass/Vol]on 12-06-0522Jgfauvgjoljjft and review of laboratory resultsNoKettering Health HamiltonFikansas city va medical centerOrdered By: Erna Hicks on 08-09-2023 Fibrinogen Coag (PPP) [Mass/Vol]252 mg/dL200 - 400 mg/dLUnAdams County Hospital Coag (PPP) [Mass/Vol]Ordered By: Erna Hicks on 99-47-7523Rtlptmxxjiwunj and review of laboratory resultsNoDetwiler Memorial HospitalGlucose Test strip manual (Bld) [Mass/Vol]on 73-00-0263Wswewrf [Mass/Vol]218 mg/iNEsuv09 - 99 mg/dL [facility] HospitalInterpretation and review of laboratory results AbnormalUnTrinity Health System Twin City Medical CenterUnTr[facility] Glucose [Mass/Vol]72 mg/dLLow74 - 99 mg/dLUnTr[facility] Interpretation and review of laboratory resultsAbTrumbull Memorial HospitalGlucose [Mass/Vol]72 mg/dLLow74 - 99 mg/dLUnTrinity Health System [facility] CenterInterpretation and review of laboratory resultsAbnoDetwiler Memorial HospitalLD Lactate to pyruvate reaction [Catalytic activity/Vol]on 08-09-2023 Interpretation and review of laboratory resultsNoDetwiler Memorial HospitalLactate dehydrogenaseon 56-60-4197ECR Lactate to pyruvate reaction [Catalytic activity/Vol]187 U/L84 - 246 U/L [facility] HospitalMagnesiumon 56-28-4139Lingkhext [Mass/Vol]2.25 mg/dL1.60 - 2.40 mg/dLUnTrinity Health System Twin [facility] Medical CenterMagnesium [Mass/Vol]on 99-17-6936Jpunkxresayhfd and review of laboratory resultsNormalUniversLakeside Women's Hospital – Oklahoma CityManual differential performed Ql (Bld)on 19-15-2398Fuql form neutrophils (Bld) [#/Vol]0.05 10*3/[facility] City HospitalBand form neutrophils/100 WBC (Bld)5.1 %0.0 - 5.0 %[facility] HospitalBasophils (Bld) [#/Vol]0.01 10*3/[facility] HospitalBasophils/100 WBC (Bld)0.9 %0.0 - 2.0 % [facility] HospitalCells Counted Total (Bld) [#]117 {cells} [facility] HospitalEosinophils (Bld) [#/Vol]0.11 10*3/[facility] HospitalEosinophils/100 WBC (Bld)12.0 %0.0 - 6.0 %[facility] HospitalLymphocytes (Bld) [#/Vol]0.04 10*3/[facility] HospitalLymphocytes/100 WBC (Bld)4.3 %13.0 - 44.0 %[facility] HospitalMonocytes (Bld) [#/Vol]0.03 10*3/[facility] HospitalMonocytes/100 WBC (Bld)3.4 %2.0 - 10.0 %[facility] HospitalNeutrophils (Bld) [#/Vol]0.70 10*3/[facility] HospitalOvalocytes LM Ql (Bld)[facility]woodsRB morphology finding Nom (Bld)See [facility] PrebleSegmented neutrophils (Bld) [#/Vol]0.65 10*/[facility] Segmented neutrophils/100 WBC (Bld)72.6 %40.0 - 80.0 %[facility] HospitalVarcleveland clinic luther[facility] hospital lymphocytes (Bld) [#/Vol]0.02 10*3/[facility] HospitalVarcleveland clinic lutheran hospital lymphocytes/100 WBC (Bld)1.7 %0.0 - 2.0 %[facility] HospitalNo Panel Informationon 91-72-9228Jnrbkgzalliclq and review of laboratory resultsAbnoKettering Health HamiltonUnTrinity Health System [facility] Medical CenterUnTr[facility] CenterPhosphate [Mass/Vol]on 08-09-2023 Interpretation and review of laboratory resultsNormDayton Children's HospitalPhosphoruson 94-94-3724Bywrytlap [Mass/Vol]3.6 mg/dL2.5 - 4.9 mg/dLUnSalem Regional Medical Center-reactive proteinon 30-48-7180BLM [Mass/Vol]1.49 mg/dLHighNINF - 1.00 mg/dLUnTrinity Health System [facility] Medical CenterCB W Auto Differential panel (Bld)on 08-08-2023 Erythrocyte distribution width (RBC) [Ratio]15.1 %High11.5 - 14.5 %[facility] HospitalHematocrit (Bld) [Volume fraction]26.3 %Low36.0 - 46.0 % [facility] HospitalHemoglobin (Bld) [Mass/Vol]8.5 g/dLLow12.0 - 16.0 g/dLUnTrinity Health System [facility] Medical CenterImhannibal regional hospital granulocytes (Bld) [#/Vol] 0.02 10*3/uLUnTrinity Health System Twin City Medical CenterImhannibal regional hospital granulocytes/100 WBC (Bld) 1.9 %High0.0 - 0.9 %[facility] CenterH (RBC) [Entitic mass] 31.8 pg26.0 - 34.[address] pgUnSt. Vincent HospitalHC (RBC) [Mass/Vol]32.3 g/dL32.0 - 36.0 g/dLUnSt. Vincent HospitalV (RBC) [Entitic vol]99 fL80 - 100 fLUniTriHealth McCullough-Hyde Memorial HospitalNucleated RBC/100 WBC (Bld) [Ratio]0.0 %[facility] HospitalPlatelet mean volume (Bld) [Entitic vol]12.2 fLHigh7.5 - 11.5 fLUniTriHealth McCullough-Hyde Memorial HospitalPlatelets (Bld) [#/Vol]19 10*3/uLCritically lowUnTrinity Health System Twin City Medical CenterRBC (Bld) [#/Vol]2.67 10*6/[facility] HospitalWBC (Bld) [#/Vol]1.1 10*3/[facility] HospitalUnTrinity Health System [facility] Medical CenterCRP [Mass/Vol]on 76-38-9784Ksjxepgzsobaco and review of laboratory resultsAbnormal [facility] HospitalComprehensive metabolic 2000 panelon 08-08-2023 Albumin BCP dye [Mass/Vol]3.0 g/dLLow3.4 - 5.0 g/dLUnSalem Regional Medical Center [Catalytic activity/Vol]70 U/L33 - 136 U/[facility] HospitalT With P-5'-P [Catalytic activity/Vol]29 U/L7 - 45 U/[facility] CenterAnion gap [Moles/Vol]13 mmol/L10 - 20 mmol/[facility] CenterAST With P-5'-P [Catalytic activity/Vol]31 U/L9 - 39 U/L [facility] HospitalBilirubin [Mass/Vol]1.1 mg/dL0.0 - 1.2 mg/dL [facility] HospitalCalcium [Mass/Vol]7.4 mg/dLLow8.6 - 10.6 mg/dL [facility] HospitalChloride [Moles/Vol]106 mmol/L98 - 107 mmol/L [facility] HospitalCO2 [Moles/Vol]22 mmol/L21 - 32 mmol/L [facility] HospitalCreatinine [Mass/Vol]0.44 mg/dLLow0.50 - 1.05 mg/dLUnTrinity Health System [facility] Medical CenterGFR/1.73 sq M.predicted MDRD (S/P/Bld) [Vol rate/Area]- PINFUniTriHealth McCullough-Hyde Memorial HospitalGlucose [Mass/Vol]112 mg/lQQvde35 - 99 mg/dLUnTrinity Health System [facility] CenterInterpretation and review of laboratory resultsAbnoalUniTriHealth McCullough-Hyde Memorial HospitalPotassium [Moles/Vol]3.5 mmol/L3.5 - 5.3 mmol/[facility] CenterProtein [Mass/Vol]4.5 g/dLLow6.4 - 8.2 g/dLUnTrinity Health System Twin City Medical CenterSodium [Moles/Vol]137 mmol/L136 - 145 mmol/[facility] CenterUrea nitrogen [Mass/Vol]14 mg/dL6 - 23 mg/dLMercer County Community HospitalFerritinon 04-93-0819Qnbsjbda [Mass/Vol]85 ng/mL8 - 150 ng/mLChillicothe HospitalFerritin [Mass/Vol]on 67-15-4784Zmtktzjksxibmd and review of laboratory resultsNoKettering Health HamiltonFibrinogenon 59-37-9880Kkfpvaafrk Coag (PPP) [Mass/Vol]214 mg/dL200 - 400 mg/dLChillicothe HospitalFikansas city va medical center Coag (PPP) [Mass/Vol]on 23-63-3414Uikmbhhzepdrod and review of laboratory resultsNoUniversity Hospitals Ahuja Medical CenterGlucose Test strip manual (Bld) [Mass/Vol]on 09-94-0341Zquefey [Mass/Vol]139 mg/fPFqjn08 - 99 mg/dLUnTrinity Health System Twin City Medical CenterInterpretation and review of laboratory resultsAbTrumbull Memorial HospitalGlucose [Mass/Vol]97 mg/dL74 - 99 mg/dLUnTrinity Health System [facility] Medical CenterInterpretation and review of laboratory resultsNoDetwiler Memorial HospitalGlucose [Mass/Vol]99 mg/dL74 - 99 mg/dLUnTrinity Health System Twin City Medical CenterInterpretation and review of laboratory resultsNoDetwiler Memorial HospitalLD Lactate to pyruvate reaction [Catalytic activity/Vol]on 08-08-2023 Interpretation and review of laboratory resultsNoDetwiler Memorial HospitalLactateon 28-78-5714Evcrvks [Moles/Vol]1.1 mmol/L0.4 - 2.0 mmol/[facility] Hospitalate [Moles/Vol]on 28-02-6953Wjxtjwsywpcnza and review of laboratory resultsNoGuernsey Memorial HospitalLaokate dehydrogenaseon 33-99-8200AVZ Lactate to pyruvate reaction [Catalytic activity/Vol]210 U/L84 - 246 U/LUnTrinity Health System Twin City Medical CenterMagnesiumon 79-63-6546Bdnkyolty [Mass/Vol]1.36 mg/dLLow1.60 - 2.40 mg/dLChillicothe HospitalMagnesium [Mass/Vol]on 08-08-2023 Interpretation and review of laboratory resultsAbnormalUniTriHealth McCullough-Hyde Memorial HospitalUnTrinity Health System [facility] City Medical CenterManual differential performed Ql (Bld) on 46-01-9280Yspw form neutrophils (Bld) [#/Vol]0.19 10*3/[facility] HospitalBand form neutrophils/100 WBC (Bld)16.9 %0.0 - 5.0 %[facility] HospitalBasophils (Bld) [#/Vol]0.00 10*3/[facility] HospitalBasophils/100 WBC (Bld)0.0 %0.0 - 2.0 %[facility] HospitalCells Counted Total (Bld) [#]83 {cells}[facility] HospitalEosinophils (Bld) [#/Vol]0.04 10*3/[facility] Eosinophils/100 WBC (Bld)3.6 %0.0 - 6.0 %[facility] Lymphocytes (Bld) [#/Vol]0.07 10*3/[facility] Lymphocytes/100 WBC (Bld)6.0 %13.0 - 44.0 %[facility] Monocytes (Bld) [#/Vol]0.11 10*3/[facility] Monocytes/100 WBC (Bld)9.6 %2.0 - 10.0 %[facility] Neutrophils (Bld) [#/Vol]0.89 10*3/[facility] Ovalocytes LM Ql (Bld)[facility] SouthwoodsRB morphology finding Nom (Bld)See BelowChillicothe HospitalSegmented neutrophils (Bld) [#/Vol]0.70 10*3/[facility] HospitalSeented neutrophils/100 WBC (Bld)63.9 %40.0 - 80.0 %[facility] HospitalNo Panel Informationon 57-03-1143KcankwqdlsTrinity Health System Twin City Medical CenterInterpretation and review of laboratory resultsAbnoKettering Health HamiltonUnTrinity Health System [facility] City Medical CenterUrinalysis complete W Reflex Culture panel (U)on 69-64-8059Aehuovtwjq (U)ClearClearUnTrinity Health System Twin City Medical CenterBilirubin (U) [Mass/Vol]NegativeNEGATIVEUnTrinity Health System [facility] Medical CenterColor (U)Yellow Straw, YellowUnTrinity Health System Twin City Medical CenterGlucose Auto test strip (U) [Mass/Vol]NegativeNEGATIVE mg/dLUnTrinity Health System [facility] Medical CenterInterpretation and review of laboratory resultsAbnoKettering Health HamiltonKetones (U) [Mass/Vol]NegativeNEGATIVE mg/dLUnTrinity Health System [facility] Medical CenterLeukocyte esterase Auto test strip Ql (U)NegativeNEGATIVEUnTrinity Health [facility] Nitrite Auto test strip Ql (U)NegativeNEGATIVEUnTr[facility] pH (U)7.0 [pH]5.0, 5.5, 6.0, 6.5, 7.0, 7.5, 8.0UnTr[facility] Protein (U) [Mass/Vol]NegativeNEGATIVE mg/dLUnTrinity Health System [facility] City Medical CenterRBC (U) [#/Vol]NegativeNEGATIVEUnTrinity Health System [facility] Medical CenterSpecific gravity (U) [Rel density]1.0081.005 - 1.035UnTrinity Health [facility] Medical CenterUrobilinogen (U) [Mass/Vol]4.0 mg/dLAbnormalNINF - 2.0 mg/dLUnTriHealth McCullough-Hyde Memorial HospitalXR Chest Single viewon 90-90-6330WU MMODAL MMODALUnTrinity Health System [facility] Center Work Phone: Radiology Study observation (narrative)[facility] Work Phone: XR Chest Single viewOrdered By: José Ramos on 07-51-1511SbubaorjmpTrinity Health System Twin City Medical Center Work Phone: [phone]-oiozchtv proteinon 93-29-9616HYE [Mass/Vol]2.53 mg/dLHighNINF - 1.00 mg/dLUnTrinity Health System [facility] City Medical CenterCBC W Auto Differential panel (Bld)on 27-69-4471Kmjinizhgvv distribution width (RBC) [Ratio]15.1 %High11.5 - 14.5 %[facility] HospitalHematocrit (Bld) [Volume fraction]29.8 %Low36.0 - 46.0 %[facility] Hemoglobin (Bld) [Mass/Vol]9.6 g/dLLow12.0 - 16.0 g/dLUnTrinity Health System Twin City Medical CenterImhannibal regional hospital granulocytes (Bld) [#/Vol]0.01 10*3/uLRegency Hospital Cleveland West granulocytes/100 WBC (Bld)0.9 %0.0 - 0.9 %[facility] (RBC) [Entitic mass]31.8 pg26.0 - 34.0 pgUnTrinity Health System Twin City Medical CenterMCHC (RBC) [Mass/Vol]32.2 g/dL32.0 - 36.0 g/dLUnSt. Vincent HospitalV (RBC) [Entitic vol]99 fL80 - 100 [facility] CenterniTriHealth McCullough-Hyde Memorial HospitalNucleated RBC/100 WBC (Bld) [Ratio]0.0 %[facility] HospitalPlatelet mean volume (Bld) [Entitic vol]10.0 fL7.5 - 11.5 fLUniTriHealth McCullough-Hyde Memorial HospitalPlatelets (Bld) [#/Vol]22 10*3/uLCritically lowChillicothe HospitalRB (Bld) [#/Vol]3.02 10*6/uLLowUnTrinity Health System Twin City Medical CenterWBC (Bld) [#/Vol]1.1 10*3/[facility] SystemFerritinon 93-20-7952Kxaarxgx [Mass/Vol]94 ng/mL8 - 150 ng/mLChillicothe HospitalFibrinogenon 08-07-2023 Fibrinogen Coag (PPP) [Mass/Vol]250 mg/dL200 - 400 mg/dLChillicothe HospitalFibrinogen Coag (PPP) [Mass/Vol]on 51-67-4303Nlzmxpijyraneh and review of laboratory resultsNormalUniversity Hospitals Laureate Psychiatric Clinic and Hospital – TulsaGlucose Test strip manual (Bld) [Mass/Vol]on 07-10-5829Ryreomh [Mass/Vol]114 mg/jQMuno16 - 99 mg/dLChillicothe Hospital Interpretation and review of laboratory resultsAbTrumbull Memorial HospitalGlucose [Mass/Vol]73 mg/dLLow74 - 99 mg/dLChillicothe HospitalInterpretation and review of laboratory resultsAbTrumbull Memorial HospitalGlucose [Mass/Vol]233 mg/yDCzge72 - 99 mg/dLUnTrinity Health System [facility] Medical CenterInterpretation and review of laboratory resultsAbTrumbull Memorial HospitalGlucose [Mass/Vol]130 mg/mISuxb38 - 99 mg/dLChillicothe HospitalInterpretation and review of laboratory resultsAbTrumbull Memorial HospitalLactate dehydrogenaseon 78-26-2399CBQ Lactate to pyruvate reaction [Catalytic activity/Vol]214 U/L84 - 246 U/LUnTrinity Health System Twin City Medical CenterMagnesiumon 23-16-5680Ihhcyohpa [Mass/Vol]1.88 mg/dL1.60 - 2.40 mg/dL [facility] HospitalManual differential performed Ql (Bld)on 46-70-8402Fxojassfm (Bld) [#/Vol]0.00 10*3/[facility] Basophils/100 WBC (Bld)0.0 %0.0 - 2.0 %[facility] HospitalCells Counted Total (Bld) [#]115 {cells}[facility] HospitalEosinophils (Bld) [#/Vol]0.02 10*3/[facility] HospitalEosinophils/100 WBC (Bld)1.8 %0.0 - 6.0 %[facility] HospitalLymphocytes (Bld) [#/Vol] 0.06 10*3/[facility] HospitalLymphocytes/100 WBC (Bld)5.2 % 13.0 - 44.0 %[facility] HospitalMonocytes (Bld) [#/Vol]0.03 10*3/uLLowChillicothe HospitalMonocytes/100 WBC (Bld)2.6 %2.0 - 10.0 %[facility] HospitalOvalocytes LM Ql (Bld)FewChillicothe HospitalRBC morphology finding Nom (Bld)See BelowUnTrinity Health System Twin City Medical CenterSegmented neutrophils (Bld) [#/Vol]0.99 10*3/uLLow [facility] HospitalSegmented neutrophils/100 WBC (Bld)90.4 %40.0 - 80.0 %[facility] HospitalNo Panel Informationon 08-07-2023 Interpretation and review of laboratory resultsNoKettering Health HamiltonInterpretation and review of laboratory resultsAbTrumbull Memorial HospitalInterpretation and review of laboratory resultsAbnoDetwiler Memorial HospitalRenal function 1999 panelon 48-34-9678Cslcgdj BCP dye [Mass/Vol]3.4 g/dL3.4 - 5.0 g/dLUnTrinity Health System Twin City Medical CenterAnion gap [Moles/Vol]12 mmol/L10 - 20 mmol/[facility] CenterCalcium [Mass/Vol]8.2 mg/dLLow8.6 - 10.6 mg/dLChillicothe HospitalChloride [Moles/Vol]109 mmol/LHigh98 - 107 mmol/[facility] CenterCO2 [Moles/Vol]24 mmol/L21 - 32 mmol/[facility] CenterCreatinine [Mass/Vol]0.27 mg/dLLow0.50 - 1.05 mg/dLUnTrinity Health [facility] GFR/1.73 sq M.predicted MDRD (S/P/Bld) [Vol rate/Area]- PINFUniTriHealth McCullough-Hyde Memorial HospitalGlucose [Mass/Vol]132 mg/jGHdxs25 - 99 mg/dLChillicothe HospitalPhosphate [Mass/Vol]2.3 mg/dLLow2.5 - 4.9 mg/dLUnTrinity Health System [facility] Medical CenterPotassium [Moles/Vol]3.8 mmol/L3.5 - 5.3 mmol/LUniversity Hospitals of ClevelandSodium [Moles/Vol]141 mmol/L136 - 145 mmol/LUnTrinity Health System Twin City Medical CenterUrea nitrogen [Mass/Vol]15 mg/dL6 - 23 mg/dLUnSalem Regional Medical Center-reactive proteinon 05-03-5235TSZ [Mass/Vol]0.85 mg/dLNINF - 1.00 mg/dLUnTrinity Health System [facility] Medical CenterCB W Auto Differential panel (Bld)on 38-97-3459Cnoupirdcax distribution width (RBC) [Ratio]15.5 %High11.5 - 14.5 % [facility] HospitalHematocrit (Bld) [Volume fraction]27.4 %Low36.0 - 46.0 %[facility] HospitalHemoglobin (Bld) [Mass/Vol]9.4 g/dLLow 12.0 - 16.0 g/dLChillicothe HospitalImhannibal regional hospital granulocytes (Bld) [#/Vol]0.02 10*3/uLRegency Hospital Cleveland West granulocytes/100 WBC (Bld)1.5 %High0.0 - 0.9 %[facility] (RBC) [Entitic mass]33.7 pg26.0 - 34.[address] pgUnSt. Vincent HospitalHC (RBC) [Mass/Vol]34.3 g/dL32.0 - 36.0 g/dLUnSt. Vincent HospitalV (RBC) [Entitic vol]98 fL80 - 100 fLUniTriHealth McCullough-Hyde Memorial HospitalNucleated RBC/100 WBC (Bld) [Ratio]0.0 %[facility] HospitalPlatelet mean volume (Bld) [Entitic vol]9.9 fL7.5 - 11.5 fLUniTriHealth McCullough-Hyde Memorial HospitalPlatelets (Bld) [#/Vol]23 10*3/uLCritically lowUnTrinity Health System Twin City Medical CenterRB (Bld) [#/Vol]2.79 10*6/uLLowChillicothe HospitalWBC (Bld) [#/Vol]1.3 10*3/uLLowChillicothe HospitalUnTrinity Health System [facility] Center Ferritinon 30-34-6601Vepddqrm [Mass/Vol]78 ng/mL8 - 150 ng/mLChillicothe HospitalFibrinogenon 25-15-5408Yhvoarwdds Coag (PPP) [Mass/Vol]216 mg/dL200 - 400 mg/dLUnTrinity Health System Twin City Medical CenterFikansas city va medical center Coag (PPP) [Mass/Vol]on 54-59-7456Pebahtssvhyqbr and review of laboratory resultsNormal [facility] DaytonGlucose Test strip manual (Bld) [Mass/Vol]on 76-68-1032Whseppg [Mass/Vol]121 mg/kZWdes97 - 99 mg/dLUnTrinity Health System [facility] Medical CenterInterpretation and review of laboratory resultsAbTrumbull Memorial HospitalGlucose [Mass/Vol]129 mg/pWZpef79 - 99 mg/dLUnTrinity Health System [facility] CenterInterpretation and review of laboratory resultsAbTrumbull Memorial HospitalGlucose [Mass/Vol]81 mg/dL74 - 99 mg/dLUnTrinity [facility] System [facility] CenterInterpretation and review of laboratory resultsNoDetwiler Memorial HospitalGlucose [Mass/Vol]89 mg/dL74 - 99 mg/dLUnTrinity Health System [facility] CenterInterpretation and review of laboratory resultsNoDetwiler Memorial HospitalLactate dehydrogenaseon 67-36-9103LPX Lactate to pyruvate reaction [Catalytic activity/Vol]197 U/L84 - 246 U/LUnTrinity Health System Twin City Medical CenterMagnesiumon 48-07-8393Pwmoiypyb [Mass/Vol]1.57 mg/dLLow1.60 - 2.40 mg/dLUnTrinity Health System [facility] Medical CenterManual differential performed Ql (Bld)on 17-48-9684Wslhknnnf (Bld) [#/Vol]0.00 10*3/uL [facility] HospitalBasophils/100 WBC (Bld)0.0 %0.0 - 2.0 % [facility] HospitalCells Counted Total (Bld) [#]114 {cells} [facility] HospitalEosinophils (Bld) [#/Vol]0.00 10*3/uLUnTrinity Health System Twin City Medical CenterEosinophils/100 WBC (Bld)0.0 %0.0 - 6.0 %[facility] HospitalLymphocytes (Bld) [#/Vol]0.08 10*3/[facility] HospitalLymphocytes/100 WBC (Bld)6.2 %13.0 - 44.0 %[facility] HospitalMonocytes (Bld) [#/Vol]0.03 10*3/uLOhio State Health SystemMonocytes/100 WBC (Bld)2.6 %2.0 - 10.0 %[facility] HospitalRBC morphology finding Nom (Bld)No significant RBC morphology present [facility] HospitalSegmented neutrophils (Bld) [#/Vol]1.19 10*3/uL [facility] SystemSegmented neutrophils/100 WBC (Bld)91.2 % 40.0 - 80.0 %[facility] HospitalNo Panel Informationon 08-06-2023 Interpretation and review of laboratory resultsAbnoDetwiler Memorial HospitalInterpretation and review of laboratory resultsAbMiami Valley HospitalInterpretation and review of laboratory resultsNoDetwiler Memorial HospitalRenal function 1999 panelon 16-37-4211Tkbhnib BCP dye [Mass/Vol]3.4 g/dL3.4 - 5.0 g/dLUnTrinity Health System Twin [facility] Medical CenterAnion gap [Moles/Vol]12 mmol/L10 - 20 mmol/[facility] CenterCalcium [Mass/Vol]8.3 mg/dLLow8.6 - 10.6 mg/dLUnTrinity Health System Twin [facility] Medical CenterChloride [Moles/Vol]106 mmol/L98 - 107 mmol/[facility] CenterCO2 [Moles/Vol]26 mmol/L21 - 32 mmol/[facility] CenterCreatinine [Mass/Vol]0.42 mg/dLLow0.50 - 1.05 mg/dLUnTrinity [facility] GFR/1.73 sq M.predicted MDRD (S/P/Bld) [Vol rate/Area]- PINFUniTriHealth McCullough-Hyde Memorial HospitalGlucose [Mass/Vol]103 mg/gQHjzq94 - 99 mg/dLUnTrinity Health System [facility] Medical CenterPhosphate [Mass/Vol]3.2 mg/dL2.5 - 4.9 mg/dLChillicothe HospitalPotassium [Moles/Vol]3.4 mmol/LLow3.5 - 5.3 mmol/[facility] CenterSodium [Moles/Vol]141 mmol/L136 - 145 mmol/[facility] CenterUrea nitrogen [Mass/Vol]19 mg/dL6 - 23 mg/dLChillicothe HospitalCB W Auto Differential panel (Bld)on 74-67-2901Kjntwcgjs (Bld) [#/Vol] 0.00 10*3/uLUnTrinity Health System Twin City Medical CenterBasophils/100 WBC (Bld)0.0 %0.0 - 2.0 %[facility] HospitalEosinophils (Bld) [#/Vol]0.00 10*3/uL [facility] HospitalEosinophils/100 WBC (Bld)0.0 %0.0 - 6.0 % [facility] HospitalErythrocyte distribution width (RBC) [Ratio] 15.0 %High11.5 - 14.5 %[facility] HospitalHematocrit (Bld) [Volume fraction]32.4 %Low36.0 - 46.0 %[facility] HospitalHemoglobin (Bld) [Mass/Vol]10.4 g/dLLow12.0 - 16.0 g/dLUnTrinity Health [facility] Immature granulocytes (Bld) [#/Vol]0.02 10*3/uLChillicothe Hospital Immature granulocytes/100 WBC (Bld)1.2 %High0.0 - 0.9 %[facility] HospitalInterpretation and review of laboratory resultsAbnormalUniversCommunity Hospital EastLymphocytes (Bld) [#/Vol]0.36 10*3/uLLowUnTrinity Health System [facility] Medical CenterLymphocytes/100 WBC (Bld)21.2 %13.0 - 44.0 %[facility] HospitalMCH (RBC) [Entitic mass]32.4 pg26.0 - 34.0 pgUnTrinity Health System Twin City Medical CenterMCHC (RBC) [Mass/Vol]32.1 g/dL32.0 - 36.0 g/dLChillicothe HospitalMCV (RBC) [Entitic vol]101 jWXoxt64 - 100 [facility] CenterMonocytes (Bld) [#/Vol]0.08 10*3/[facility] HospitalMonocytes/100 WBC (Bld)4.7 %2.0 - 10.0 %[facility] HospitalNeutrophils (Bld) [#/Vol]1.24 10*3/[facility] Neutrophils/100 WBC (Bld)72.9 %40.0 - 80.0 %[facility] Nucleated RBC/100 WBC (Bld) [Ratio]0.0 %[facility] Platelet mean volume (Bld) [Entitic vol]10.6 fL7.5 - 11.5 [facility] CenterPlatelets (Bld) [#/Vol]29 10*3/uLCritically lowChillicothe HospitalRBC (Bld) [#/Vol]3.21 10*6/[facility] HospitalWBC (Bld) [#/Vol]1.7 10*3/[facility] HospitalGlucose Test strip manual (Bld) [Mass/Vol]on 96-35-6155Ogjokxx [Mass/Vol]77 mg/dL74 - 99 mg/dL [facility] HospitalInterpretation and review of laboratory results NormalUnCleveland Clinic Avon HospitalGlucose [Mass/Vol]112 mg/kTIcaa32 - 99 mg/dLUnTrinity [facility] Interpretation and review of laboratory resultsAbnoDetwiler Memorial HospitalGlucose [Mass/Vol]124 mg/rFFgjf33 - 99 mg/dLUnTrinity Health System [facility] CenterInterpretation and review of laboratory resultsAbnoDetwiler Memorial HospitalMRSA isol Org specific cx Ql (Nose)Ordered By: Yvan Ring on 82-46-4952Bjyxcjajhrzfwz and review of laboratory resultsNoKettering Health HamiltonStaphylococcus sp identified Org specific cx Nom (Unsp spec)No Staphylococcus aureus isolatedMercer County Community HospitalMRSA isol Org specific cx Ql (Nose)Ordered By: Luciana Pleitez on 80-20-4481Ugllogzussypcb and review of laboratory results NormalChillicothe HospitalStaphylococcus sp identified Org specific cx Nom (Unsp spec)No Staphylococcus aureus isolatedKettering Health DaytonMagnesiumon 58-91-1681Wnxorwwex [Mass/Vol]1.85 mg/dL1.60 - 2.40 mg/dLUnTrinity Health System Twin City Medical CenterMagnesium [Mass/Vol]on 62-98-6648Lpvgrtowkuxlqu and review of laboratory resultsNormal [facility] HospitalNo Panel Informationon 95-25-1185AyhtdqbmysCleveland Clinic Avon HospitalRB shape Nom (Bld)on 44-52-4965Ehkljpgcrh LM Ql (Bld)[facility] SouthwoodsOvalocytes LM Ql (Bld)[facility] morphology finding Nom (Bld) See BelowUnTrinity Health System Twin City Medical CenterSchistocytes LM Ql (Bld)[facility] SouthwoodsRenal function 2000 panelon 29-57-2436Dirwuuz BCP dye [Mass/Vol]3.5 g/dL3.4 - 5.0 g/dLChillicothe HospitalAnion gap [Moles/Vol]10 mmol/L10 - 20 mmol/[facility] CenterCalcium [Mass/Vol]8.9 mg/dL8.6 - 10.6 mg/dLChillicothe HospitalChloride [Moles/Vol]109 mmol/LHigh98 - 107 mmol/[facility] CenterCO2 [Moles/Vol]29 mmol/L21 - 32 mmol/[facility] CenterCreatinine [Mass/Vol]0.37 mg/dLLow0.50 - 1.05 mg/dLUnTrinity Health [facility] GFR/1.73 sq M.predicted MDRD (S/P/Bld) [Vol rate/Area]- PINFUGrand Lake Joint Township District Memorial HospitalGlucose [Mass/Vol]125 mg/sZHmzz32 - 99 mg/dLUnTrinity Health System [facility] Medical CenterInterpretation and review of laboratory resultsAbnoalUGrand Lake Joint Township District Memorial HospitalPhosphate [Mass/Vol]2.7 mg/dL2.5 - 4.9 mg/dLUnTrinity Health System [facility] Medical CenterPotassium [Moles/Vol]3.8 mmol/L3.5 - 5.3 mmol/[facility] CenterSodium [Moles/Vol]144 mmol/L136 - 145 mmol/[facility] CenterUrea nitrogen [Mass/Vol]15 mg/dL6 - 23 mg/dLUnTrinity Health System Twin City Medical CenterBasi metabolic 2000 panelon 24-46-7582Qthvp gap [Moles/Vol]12 mmol/L10 - 20 mmol/[facility] CenterCalcium [Mass/Vol]9.3 mg/dL8.6 - 10.6 mg/dLUnTrinity Health System [facility] Medical CenterChloride [Moles/Vol]108 mmol/LHigh98 - 107 mmol/[facility] CenterCO2 [Moles/Vol]28 mmol/L21 - 32 mmol/[facility] CenterCreatinine [Mass/Vol]0.46 mg/dLLow0.50 - 1.05 mg/dLUnTrinity [facility] GFR/1.73 sq M.predicted MDRD (S/P/Bld) [Vol rate/Area]- PINFUniTriHealth McCullough-Hyde Memorial HospitalGlucose [Mass/Vol]110 mg/oKBgve26 - 99 mg/dLUnTrinity Health System [facility] CenterInterpretation and review of laboratory resultsAbnormalUniTriHealth McCullough-Hyde Memorial HospitalPotassium [Moles/Vol]3.5 mmol/L3.5 - 5.3 mmol/[facility] CenterSodium [Moles/Vol]144 mmol/L136 - 145 mmol/[facility] CenterUrea nitrogen [Mass/Vol]13 mg/dL6 - 23 mg/dLUnTrinity Health System [facility] Medical CenterBlood type and Indirect antibody screen panel (Bld)on 09-82-9049JRB group Nom (Bld)AUnTrinity Health System Twin City Medical CenterBlwindom area hospital group antibody screen QlNegativeUnTrinity Health System Twin City Medical CenterD Ag Ql (Bld)Positive [facility] HospitalUnTrinity Health System [facility] Medical CenterCB W Auto Differential panel (Bld)on 94-15-9787Koyvqfwhysw distribution width (RBC) [Ratio]15.5 %High11.5 - 14.5 %[facility] HospitalHematocrit (Bld) [Volume fraction]30.1 %Low36.0 - 46.0 %[facility] Hemoglobin (Bld) [Mass/Vol]9.5 g/dLLow12.0 - 16.0 g/dLUnTrinity Health System Twin [facility] Medical CenterImmature granulocytes (Bld) [#/Vol]0.00 10*3/uLUnTrinity Health System Twin City Medical CenterImhannibal regional hospital granulocytes/100 WBC (Bld)0.0 %0.0 - 0.9 %[facility] CenterH (RBC) [Entitic mass]31.6 pg26.0 - 34.0 pgUnTrinity Health System Twin City Medical CenterMCHC (RBC) [Mass/Vol]31.6 g/dLLow32.0 - 36.0 g/dLUnSt. Vincent HospitalV (RBC) [Entitic vol]100 fL80 - 100 [facility] CenterniTriHealth McCullough-Hyde Memorial HospitalNucleated RBC/100 WBC (Bld) [Ratio]0.0 %[facility] HospitalPlatelet mean volume (Bld) [Entitic vol]10.1 fL7.5 - 11.5 fLUniTriHealth McCullough-Hyde Memorial HospitalPlatelets (Bld) [#/Vol]30 10*3/uLCritically lowChillicothe HospitalRBC (Bld) [#/Vol]3.01 10*6/uLOhio State Health SystemWBC (Bld) [#/Vol]1.6 10*3/uLOhio State Health SystemUnTrinity Health System Twin [facility] Medical CenterFibrinogenon 65-94-2739Sxkvydiwxv Coag (PPP) [Mass/Vol]213 mg/dL200 - 400 mg/dLChillicothe Hospital Fibrinogen Coag (PPP) [Mass/Vol]on 28-80-7162Zbxzowjpshrvyn and review of laboratory resultsNormalUniTriHealth McCullough-Hyde Memorial HospitalGlucose Test strip manual (Bld) [Mass/Vol]on 10-25-5068Kdkfbps [Mass/Vol]159 mg/mWGsfu86 - 99 mg/dL [facility] HospitalInterpretation and review of laboratory results AbnormalUnTrinity Health System Twin City Medical CenterUnTr[facility] Glucose [Mass/Vol]173 mg/wALrep77 - 99 mg/dLUnTrinity [facility] Interpretation and review of laboratory resultsAbTrumbull Memorial HospitalGlucose [Mass/Vol]100 mg/gTLwux95 - 99 mg/dLChillicothe HospitalInterpretation and review of laboratory resultsAbTrumbull Memorial HospitalHbA1c (Bld) [Mass fraction]Ordered By: Elizabeth Horta on 08-04-2023 Average glucose Estimated from glycated hemoglobin (Bld) [Mass/Vol]94 mg/dLNot [facility] Hemoglobin Q1UNwvbrkp By: Elizabeth Horta on 33-31-9580YpL7w (Bld) [Mass fraction]4.9 %see belowChillicothe HospitalHepatic function 2000 panelon 37-06-7446Bvodllb BCP dye [Mass/Vol]3.6 g/dL3.4 - 5.0 g/dLUnTrinity Health System Twin City Medical CenterALP [Catalytic activity/Vol]83 U/L33 - 136 U/[facility] CenterALT With P-5'-P [Catalytic activity/Vol]16 U/L7 - 45 U/L [facility] HospitalAST With P-5'-P [Catalytic activity/Vol]21 U/L9 - 39 U/[facility] CenterBilirubin [Mass/Vol]0.9 mg/dL0.0 - 1.2 mg/dLChillicothe HospitalBilirubin.direct [Mass/Vol]0.3 mg/dL0.0 - 0.3 mg/dLChillicothe HospitalInterpretation and review of laboratory resultsAbnoKettering Health HamiltonProtein [Mass/Vol]5.2 g/dLLow6.4 - 8.2 g/dLUnTrinity Health System Twin City Medical CenterLactate Dehydrogenaseon 63-62-1285VRM Lactate to pyruvate reaction [Catalytic activity/Vol]194 U/L84 - 246 U/[facility] CenterMagnesiumon 79-88-5863Xulwtmrws [Mass/Vol]1.66 mg/dL1.60 - 2.40 mg/dLUnTrinity Health System Twin City Medical CenterManual differential performed Ql (Bld)on 18-23-5188Qchlisxqe (Bld) [#/Vol]0.00 10*3/uL [facility] HospitalBasophils/100 WBC (Bld)0.0 %0.0 - 2.0 % [facility] HospitalCells Counted Total (Bld) [#]108 {cells} [facility] HospitalEosinophils (Bld) [#/Vol]0.07 10*3/uLUnTrinity Health System Twin City Medical CenterEosinophils/100 WBC (Bld)4.6 %0.0 - 6.0 %[facility] HospitalLymphocytes (Bld) [#/Vol]0.55 10*3/[facility] HospitalLymphocytes/100 WBC (Bld)34.3 %13.0 - 44.0 %[facility] HospitalMonocytes (Bld) [#/Vol]0.07 10*3/[facility] HospitalMonocytes/100 WBC (Bld)4.6 %2.0 - 10.0 %[facility] HospitalRB morphology finding Nom (Bld)No significant RBC morphology present [facility]othe HospitalSegmented neutrophils (Bld) [#/Vol]0.90 10*3/uL LowUnTrinity Health System Twin City Medical CenterSegmented neutrophils/100 WBC (Bld)56.5 % 40.0 - 80.0 %[facility]othe HospitalNo Panel Informationon 08-04-2023 [facility] HospitalInterpretation and review of laboratory results AbnormalKettering Health Dayton Interpretation and review of laboratory resultsNormalUniversCommunity Hospital EastUnTrinity Health System Twin City Medical CenterUnTrinity Health System Twin City Medical CenterPT and aPTT panel Coag (PPP)on 19-01-4390jGWD Coag (PPP) [Time]36 [facility] HospitalINR Coag (PPP) [Relative time]1.3 {INR}High0.9 - 1.1 [facility] HospitalInterpretation and review of laboratory results AbnormalChillicothe HospitalPT Coag (PPP) [Time]14.5 [facility] SystemPT and aPTT panel Coag (PPP)Ordered By: Jayesh Nolan on 20-96-8245nZCL Coag (PPP) [Time]139 sCritically highUnTrinity Health System Twin City Medical CenterINR Coag (PPP) [Relative time]1.3 {INR}High0.9 - 1.1[facility] Interpretation and review of laboratory resultsAbMiami Valley HospitalPT Coag (PPP) [Time]15.1 sHigniSt. Mary's Warrick HospitalPhosphoruson 31-81-6761Svxabponh [Mass/Vol]4.1 mg/dL2.5 - 4.9 mg/dLChillicothe HospitalSARS-CoV-2 (COVID-19) RNA JOHANN+probe Ql (Resp)Ordered By: Ligia Babcock on 02-17-2852Laqvhuzcywlkif and review of laboratory resultsNoGuernsey Memorial HospitalSARS-CoV-2 RT PCROrdered By: Ligia Babcock on 08-04-2023 SARS-CoV-2 (COVID-19) RNA JOHANN+probe Ql (Resp)Not detectedNot DetectedChillicothe HospitalUrate [Mass/Vol]on 78-75-4638Kbotohbnqpqnkl and review of laboratory resultsNoKettering Health HamiltonUric Acidon 08-04-2023 Urate [Mass/Vol]4.2 mg/dL2.3 - 6.7 mg/dLChillicothe HospitalIFE PATH REVIEWon [id number] REVIEW-IFEA.MISHRANEssentia Health Comment on above:Result Comment: By her/his signature above, the Pathologist listed as making the final interpretation certifies that she/he has personally reviewed this case. Performed By: #### PR34 #### [facility] [address] [place], [place] [address]CBOWVER ELECTROPHORESIS + IMMUNOFIXATION, SERUMon 07-27-2023 IMMUNOFIXATION INTEROrthopaedic Hospital of Wisconsin - GlendaleComment on above: Result Comment: Monoclonal free lambda light chains in the gamma region at 0.1 g/dL. Suggest re-testing after resolution of acute process, if clinical suspicion for monoclonal gammopathy persists.Performed By: #### CUATE #### [facility] [address] [place], [place] [address]ITBNXGMPJCJGPAGCRUJXXSHytcchZC [facility] Comment on above:Result Comment: Aberrant band detected. See immunofixation. Performed By: #### CUATE #### [facility] [address] [place], [place] [address]Enqswfl [Mass/Vol]0.1 g/dLAbnormalNot DetectedJFK Johnson Rehabilitation InstituteComment on above:Performed By: #### CUATE #### [facility] [address] [place], [place] [address]QIQ PATH REVIEWon [id number] REVIEW-SPEA.KINEssentia HealthComment on above:Result Comment: By her/his signature above, the Pathologist listed as making the final interpretation certifies that she/he has personally reviewed this case. Performed By: #### CUATE #### [facility] [address] [place], [place] [address]NZPAS/LAMBDA FREE LIGHT CHAIN,Son [id number] KAPPA/LAMBDA RATIO,S0.04Low0.26 - 1.65JFK Johnson Rehabilitation InstituteComment on above:Result Comment: Undetected antigen excess is [...] the testing laboratory.Performed By: #### CUATE #### [facility] [address] [place], [place] [address]ZJOS LAMBDA LIGHT CHAIN,S35.95 mg/dLHigh0.57 - 2.63JFK Johnson Rehabilitation InstituteComment on above:Performed By: #### CUATE #### [facility] [address] [place], [place] [address]UIIA KAPPA LIGHT CHAINS,S1.34 mg/dLNormal0.33 - 1.94JFK Johnson Rehabilitation InstituteComment on above:Performed By: #### CUATE #### [facility] [address] [place], [place] [address]ZZNZAPX ELECTROPHORESIS + IMMUNOFIXATION, SERUMon 07-24-2023 Albumin [Mass/Vol]3.4 g/dLNormal3.4 - 5.0J[facility] Johnson Rehabilitation InstituteComment on above:Performed By: #### CUATE #### [facility] [address] [place], [place] [address]SECHH 1 GLOBULIN0.3 g/dLNormal0.2 - 0.6JFK Johnson Rehabilitation InstituteComment on above:Performed By: #### CUATE #### [facility] [address] [place], [place] [address]YSMSP 2 GLOBULIN0.6 g/dLNormal0.4 - 1.1J[facility] Johnson Rehabilitation InstituteComment on above:Performed By: #### CUATE #### [facility] [address] [place], [place] [address]AUZL GLOBULIN0.6 g/dLNormal0.5 - 1.2J[facility] Johnson Rehabilitation InstituteComment on above:Performed By: #### CUATE #### [facility] [address] [place], [place] [address]MTDPV GLOBULIN0.5 g/dLNormal0.5 - 1.4J[facility] Johnson Rehabilitation InstituteComment on above:Performed By: #### CUATE #### [facility] [address] [place], [place] [address]LAQ AND DIFFERENTIALon 07-23-2023% AUTOMATED IMMATURE GRAN0.0 %Normal0.0 - 0.9J[facility] Johnson Rehabilitation InstituteComment on above:Result Comment: Immature Granulocyte Count (IG) includes promyelocytes, myelocytes and metamyelocytes but does not include bands. Percent differential counts (%) should be interpreted in the context of the absolute cell counts (cells/L).Performed By: #### CMP #### [facility] [address] [place], [place] [address]Paarzwyqq (Bld) [#/Vol]0.01 10*3/uLNormal0.00 - 0.10J[facility] Johnson Rehabilitation InstituteComment on above:Result Comment: Automated WBC differential has been confirmed by manual smear.Performed By: #### CMP #### [facility] [address] [place], [place] [address]Qwiihemcv/100 WBC (Bld)0.5 %Normal0.0 - 2.0J[facility] Johnson Rehabilitation InstituteComment on above:Performed By: #### CMP #### [facility] [address] [place], [place] [address]Cgsitintbsi (Bld) [#/Vol]0.22 10*3/uLNormal0.00 - 0.70J[facility] Rehabilitation InstituteComment on above:Performed By: #### CMP #### [facility] [address] [place], [place] [address]Wnlfjdtwknx/100 WBC (Bld)11.2 %Normal0.0 - 6.0J[facility] Johnson Rehabilitation InstituteComment on above:Performed By: #### CMP #### [facility] [address] [place], [place] [address]Gsuwduinkhq (Bld) [#/Vol]0.52 10*3/uLLow1.20 - 4.80J[facility] Rehabilitation InstituteComment on above:Performed By: #### CMP #### [facility] [address] [place], [place] [address]Pwtyjxehgvo/100 WBC (Bld)26.4 %Mptovk28.0 - 44.0J[facility] Johnson Rehabilitation InstituteComment on above:Performed By: #### CMP #### [facility] [address] [place], [place] [address]Wgjhnejjt (Bld) [#/Vol]0.24 10*3/uLNormal0.10 - 1.00J[facility] Rehabilitation InstituteComment on above:Performed By: #### CMP #### [facility] [address] [place], [place] [address]Iseyixvzc/100 WBC (Bld)12.2 %Normal2.0 - 10.0J[facility] Rehabilitation InstituteComment on above:Performed By: #### CMP #### [facility] [address] [place], [place] [address]Uasymppgtzt (Bld) [#/Vol]0.98 10*3/uLLow1.20 - 7.70J[facility] Rehabilitation InstituteComment on above:Performed By: #### CMP #### [facility] [address] [place], [place] [address]Jxbwucjhlqq/100 WBC (Bld)49.7 %Xjeemz52.0 - 80.0J[facility] Rehabilitation InstituteComment on above:Performed By: #### CMP #### [facility] [address] [place], [place] [address]Jckicwapylm distribution width (RBC) [Ratio]16.0 %High11.5 - 14.5J[facility] Johnson Rehabilitation InstituteComment on above:Performed By: #### CMP #### [facility] [address] [place], [place] [address]Vnyvdgtqdq (Bld) [Volume fraction]29.9 %Low36.0 - 46.0J[facility] Rehabilitation InstituteComment on above:Performed By: #### CMP #### [facility] [address] [place], [place] [address]Nwlkhierbz (Bld) [Mass/Vol]10.0 g/dLLow12.0 - 16.0J[facility] Rehabilitation InstituteComment on above:Performed By: #### CMP #### [facility] [address] [place], [place] [address]EHPY (RBC) [Mass/Vol]33.4 g/nUEiahbm57.0 - 36.0J[facility] Rehabilitation InstituteComment on above:Performed By: #### CMP #### [facility] [address] [place], [place] [address]JQA (RBC) [Entitic vol]99 tCBfooxa36 - 100J[facility] Rehabilitation InstituteComment on above:Performed By: #### CMP #### [facility] [address] [place], [place] [address]Ugtqaelap (Bld) [#/Vol]33 10*3/rABnv975 - 450J[facility] Rehabilitation InstituteComment on above:Performed By: #### CMP #### [facility] [address] [place], [place] [address]FWC9.03 x10E12/LLow4.00 - 5.20[facility] Comment on above:Performed By: #### CMP #### [facility] [address] [place], [place] [address]BEL (Bld) [#/Vol]2.0 10*3/uLLow4.4 - 11.3J[facility] Rehabilitation InstituteComment on above:Performed By: #### CMP #### [facility] [address] [place], [place] [address]USEABCOHBNOZT PANELon 01-91-9707Goskxpj [Mass/Vol]3.5 g/dL Normal3.4 - 5.0J[facility] Rehabilitation InstituteComment on above:Performed By: #### CUATE #### [facility] [address] [place], [place] [address]VBE [Catalytic activity/Vol]83 U/UXufsvd54 - 136J[facility] Johnson Rehabilitation InstituteComment on above:Performed By: #### CUATE #### [facility] [address] [place], [place] [address]SSG [Catalytic activity/Vol]22 U/LNormal7 - 45J[facility] Johnson Rehabilitation InstituteComment on above:Result Comment: Patients treated with Sulfasalazine may generate falsely decreased results for ALT.Performed By: #### CUATE #### [facility] [address] [place], [place] [address]Qlxbj gap [Moles/Vol]11 mmol/QLianpi34 - 20J[facility] Rehabilitation InstituteComment on above:Performed By: #### CUATE #### [facility] [address] [place], [place] [address]TKI [Catalytic activity/Vol]27 U/LNormal9 - 39J[facility] Rehabilitation InstituteComment on above:Performed By: #### CUATE #### [facility] [address] [place], [place] [address]Rjfiatypt [Mass/Vol]1.2 mg/dLNormal0.0 - 1.2J[facility] Rehabilitation InstituteComment on above:Performed By: #### CUATE #### [facility] [address] [place], [place] [address]Gupyjxq [Mass/Vol]8.3 mg/dLLow8.6 - 10.3J[facility] Rehabilitation InstituteComment on above:Performed By: #### CUATE #### [facility] [address] [place], [place] [address]Uhwgktje [Moles/Vol]106 mmol/ZUoqdeu25 - 107J[facility] Rehabilitation InstituteComment on above:Performed By: #### CUATE #### [facility] [address] [place], [place] [address]Dsjqiclaco [Mass/Vol]0.43 mg/dLLow0.50 - 1.05J[facility] Rehabilitation InstituteComment on above:Performed By: #### CUATE #### [facility] [address] [place], [place] [address]rNUD FEMALE>90Normal>90JFK Johnson Rehabilitation InstituteComment on above:Result Comment: CALCULATIONS OF ESTIMATED GFR ARE PERFORMED USING THE 2020 CKD-EPI STUDY REFIT EQUATION WITHOUT THE RACE VARIABLE FOR THE IDMS-TRACEABLE CREATININE METHODS. https://jasn.asnjournals.org/content//ASN.2440638015Lhbuvtbew By: #### CUATE #### [facility] [address] [place], [place] [address]Xfnugnz [Mass/Vol]106 mg/xETyxc76 - 99J[facility] Rehabilitation InstituteComment on above:Performed By: #### CUATE #### [facility] [address] [place], [place] [address]GPE1 (Bld) [Moles/Vol]28 mmol/APlahay11 - 32J[facility] Rehabilitation InstituteComment on above:Performed By: #### CUATE #### [facility] [address] [place], [place] [address]Gpitaqgja [Moles/Vol]3.8 mmol/LNormal3.5 - 5.3[facility] And Medical CenterComment on above:Performed By: #### KALQING #### [facility] [address] [place], [place] [address]Nnyzrj [Moles/Vol]141 mmol/KWvxwip423 - 145UH [facility] And Medical CenterComment on above:Performed By: #### KALAS #### [facility] [address] [place], [place] [address]Qmix nitrogen [Mass/Vol]13 mg/dLNormal6 - 23J[facility] Rehabilitation InstituteComment on above:Performed By: #### KALAS #### [facility] [address] [place], [place] [address]Hgogjx Note - Heme Onc-Follow Up Visiton 58-23-8882Wvhpoc Note - Heme Onc-Follow Up VisitPatient Visit Information: Visit Type: Follow Up Visit Cancer History: Treatment Synopsis: She has been referred from Dr. Marinelli at [facility]. 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 Kumari, and then Dr. Cummings. 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 Marrow 05/2023 1q+, 4p-, 13q/-13, 14q- and 16q- 0088-4464 Observation 2019 Palliative XRT both hips 800 [...] or wounds, no clubbin (more content not included)...NormalJFK Johnson Rehabilitation InstituteClinic Note - Intakeon 28-64-6035Rxsvun Note - IntakePatient Visit Information: Visit TypeFollow [...] Last Updated: 23-Jul-2023 13:27 by Jeremiah Vu (PCNA)[facility]amia HospitalIMMUNOGLOBULINS (G,A,M)on 38-83-1208XeC [Mass/Vol]36 mg/dLLow70 - 400J[facility] Rehabilitation InstituteComment on above:Result Comment: MONOCLONAL PROTEINS MAY CAUSE FALSELY LOW RESULTS IN THIS ASSAY. SERUM PROTEIN ELECTROPHORESIS SHOULD BE DONE THE FIRST TEST TO EVALUATE MONOCLONAL GAMMOPATHY.Performed By: #### CUATE #### [facility] [address] [place], [place] [address]UdS [Mass/Vol]522 mg/qHRne222 - 1600J[facility] Rehabilitation InstituteComment on above:Result Comment: MONOCLONAL PROTEINS MAY CAUSE FALSELY LOW RESULTS IN THIS ASSAY. SERUM PROTEIN ELECTROPHORESIS SHOULD BE DONE THE FIRST TEST TO EVALUATE MONOCLONAL GAMMOPATHY.Performed By: #### CUATE #### [facility] [address] [place], [place] [address]YeV [Mass/Vol]36 mg/dLLow40 - 230J[facility] Comment on above:Result Comment: MONOCLONAL PROTEINS MAY CAUSE FALSELY LOW RESULTS IN THIS ASSAY. SERUM PROTEIN ELECTROPHORESIS SHOULD BE DONE THE FIRST TEST TO EVALUATE MONOCLONAL GAMMOPATHY.Performed By: #### KALQING #### [facility] [address] [place], [place] [address]TZIYNTN ELECTROPHORESIS + IMMUNOFIXATION, SERUMon 07-23-2023 Protein [Mass/Vol]5.4 g/dLLow6.4 - 8.2J[facility] Rehabilitation InstituteComment on above:Performed By: #### CUATE #### [facility] [address] [place], [place] [address]BWL CELL MORPHOLOGYon 52-77-9019MDUCJULTSKQkfCrfgdhVL [facility] Medical CenterComment on above:Performed By: #### CUATE #### [facility] [address] [place], [place] [address]KPNHTRDUSMDBHEfkaInqykgTTDenver SpringsComment on above:Performed By: #### CUATE #### [facility] [address] [place], [place] [address]FBE morphology finding Nom (Bld)See BelowNoDenver SpringsComment on above:Performed By: #### CUATE #### [facility] [address] [place], [place] [address]Sdbiufw aminotransferase [Enzymatic activity/volume] in Serum or PlasmaOrdered By: Marlon Alba on 30-23-4802GDC [Catalytic activity/Vol]24 U/L7-52[facility] For RehabilitationAlbumin [Mass/volume] in Serum or Plasma by Bromocresol green (BCG) dye binding methoOrdered By: Marlon Alba on 31-47-4935Xtgqbtj BCG dye [Mass/Vol]3.6 g/dL3.5-5.7FOhioHealth Arthur G.H. Bing, MD, Cancer CenterAlkaline phosphatase [Enzymatic activity/volume] in Serum or PlasmaOrdered By: Marlon Alba on 53-33-7744QXZ [Catalytic activity/Vol]87 U/K87-445GphqjzevxChildren'S Hospital For RehabilitationAnisocytosis LM Ql (Bld)Ordered By: Marlon Alba on 07-78-7019Vzzonpkwaunp Ql (Bld)SlightChildren'S Hospital For RehabilitationAspartate aminotransferase [Enzymatic activity/volume] in Serum or PlasmaOrdered By: Marlon Alba on 89-77-1418TFZ [Catalytic activity/Vol]29 U/Y41-96KtmoatdheChildren'S Hospital For RehabilitationAutomated erythrocytes count in urine sediment (number/area)Ordered By: Marlon Alba on 42-52-9851MXV Auto (Urine sed) [#/Area] 0-1 [HPF]0-4FOhioHealth Arthur G.H. Bing, MD, Cancer CenterAutomated leukocytes count in urine sediment (number/area)Ordered By: Marlon Alba on 18-36-6033VCA Auto (Urine sed) [#/Area]5-9 [HPF]0-4FOhioHealth Arthur G.H. Bing, MD, Cancer CenterBasophils Auto (Bld) [#/Vol]Ordered By: Marlon Alba on 97-94-9008Lmqkvnqmd (Bld) [#/Vol]N/[facility] CenterBasophils/100 WBC Auto (Bld)Ordered By: Marlon Alba on 04-32-7305Diqnvtzbw/100 WBC (Bld)N/[facility] Medical CenterBilirubin Test strip Ql (U)Ordered By: Marlon Alba on 39-64-8604Uvuuvzzee Ql (U)Negative NegativeChildren'S Hospital For RehabilitationBilirubin.total [Mass/volume] in Serum or PlasmaOrdered By: Marlon Alba on 14-47-6626Jjzheyeuj [Mass/Vol]1.4 mg/dL 0.3-1.0[facility] Hospital For RehabilitationComment on above:Samples from patients who have taken Naproxen have shown spurious elevation in Total Bilirubin levels. A metabolite of Naproxen, O-desmethylnaproxen, has been shown to interfere with the Shanon-Felicitas method for measuring Total Bilirubin.Calcium [Mass/volume] in Serum or PlasmaOrdered By: Marlon Alba on 50-27-0495Sppncoy [Mass/Vol]8.8 mg/dL8.6-10.3FOhioHealth Arthur G.H. Bing, MD, Cancer CenterCarbon dioxide, total [Moles/volume] in Serum or PlasmaOrdered By: Marlon Alba on 05-60-0470XL3 [Moles/Vol]28.9 mmol/L21.0-31.0[facility] For RehabilitationChloride [Moles/volume] in Serum or PlasmaOrdered By: Marlon Alba on 94-82-2452Jdslrudb [Moles/Vol]108 mmol/G86-012TkllxkrheChildren'S Hospital For RehabilitationColor Auto (U) Ordered By: Marlon Alba on 59-73-2382Eahpv (U)YellowYellowChildren'S Hospital For RehabilitationCreatinine [Mass/volume] in Serum or PlasmaOrdered By: Marlon Alba on 14-25-1091Cmuciokitn [Mass/Vol]0.48 mg/dL0.60-1.20[facility] For RehabilitationEosinophils Auto (Bld) [#/Vol]Ordered By: Marlon Alba on 74-85-0572Oozdjfjxcfc (Bld) [#/Vol]N/[facility] Eosinophils/100 WBC Auto (Bld)Ordered By: Marlon Alba on 07-22-2023 Eosinophils/100 WBC (Bld)N/[facility] Medical CenterEosinophils/100 WBC Manual cnt (Bld)Ordered By: Marlon Alba on 99-11-3985Eafqplhqkaq/100 WBC (Bld) 7 %1-3FOhioHealth Arthur G.H. Bing, MD, Cancer CenterErythrocyte distribution width Auto (RBC) [Ratio]Ordered By: Marlon Alba on 10-65-7928Mhnqxdmpgwe distribution width (RBC) [Ratio]17.1 %11.9-15.3FOhioHealth Arthur G.H. Bing, MD, Cancer CenterGiant platelets/100 leukocytes [Ratio] in Blood by Manual countOrdered By: Marlon Alba on 35-47-1952Keunx platelets/100 WBC Manual cnt (Bld) [Ratio]2 /100{WBC}[facility] For RehabilitationGlobulin Calc (S) [Mass/Vol]Ordered By: Marlon Alba on 84-61-8565Rlftkhcx (S) [Mass/Vol]2.0 g/dLChildren'S Hospital For Rehabilitation Glucose [Mass/volume] in Serum or PlasmaOrdered By: Marlon Alba on 07-22-2023 Glucose [Mass/Vol]91 mg/xH40-851FzgypgwlhChildren'S Hospital For RehabilitationComment on above:ADA recommended reference rangeRandom Glucose Reference Range is dependent on time and content of last meal. Glucose of more than 200 mg/dL in a nonstressed, ambulatory subject supports the diagnosisof Diabetes Mellitus. Hematocrit Auto (Bld) [Volume fraction]Ordered By: Marlon Alba on 07-22-2023 Hematocrit (Bld) [Volume fraction]30.3 %34.0-46.4FOhioHealth Arthur G.H. Bing, MD, Cancer CenterHemoglobin [Mass/volume] in BloodOrdered By: Marlon Alba on 07-22-2023 Hemoglobin (Bld) [Mass/Vol]10.3 g/dL11.8-15.4FOhioHealth Arthur G.H. Bing, MD, Cancer Center Ketones Auto test strip (U) [Mass/Vol]Ordered By: Marlon Alba on 07-22-2023 Ketones (U) [Mass/Vol]NegativeNegativeChildren'S Hospital For Rehabilitation Laboratory - UrinalysisOrdered By: Marlon Alba on 38-65-6662Iwnehvc casts LM Ql (Urine sed)0-8 [LPF]0-8Children[facility] Hospital For RehabilitationLeukocytes [#/volume] corrected for nucleated erythrocytes in Blood by Automated counOrdered By: Marlon Alba on 45-48-7608VGM corrected for nucl RBC Auto (Bld) [#/Vol]1.7 10*3/uL3.8-11.6FOhioHealth Arthur G.H. Bing, MD, Cancer CenterLymphocytes Auto (Bld) [#/Vol] Ordered By: Marlon Alba on 55-16-2328Afwfqcvknsv (Bld) [#/Vol]N/[facility] Medical CenterLymphocytes/100 WBC Auto (Bld)Ordered By: Marlon Alba on 90-62-8734Caydepmmzhc/100 WBC (Bld)N/[facility] Lymphocytes/100 WBC Manual cnt (Bld)Ordered By: Marlon Alba on 07-22-2023 Lymphocytes/100 WBC (Bld)28 %18-42Children'S Hospital For RehabilitationMCH Auto (RBC) [Entitic mass]Ordered By: Marlon Alba on 73-33-2968VUF (RBC) [Entitic mass]33.2 pg24.7-34.3FOhioHealth Arthur G.H. Bing, MD, Cancer CenterMCHC Auto (RBC) [Mass/Vol] Ordered By: Marlon Alba on 82-68-4966HCSZ (RBC) [Mass/Vol]33.9 g/dL32.0-35.0 [facility] For RehabilitationMCV Auto (RBC) [Entitic vol]Ordered By: Marlon Alba on 52-41-0756XPZ (RBC) [Entitic vol]97.8 dM29-618WzpnmxrgtChildren'S Hospital For RehabilitationMonocyte distribution width [Entitic volume] in Blood by AutomatedOrdered By: Marlon Alba on 79-67-8987Nqkualug distribution width Auto (Bld) [Entitic vol]16.56 %0.00-20.00Children[facility] Hospital For RehabilitationMonocytes Auto (Bld) [#/Vol]Ordered By: Marlon Alba on 74-53-4749Tqetoougq (Bld) [#/Vol]N/[facility] CenterMonocytes/100 WBC Auto (Bld)Ordered By: Marlon Alba on 35-88-0552Wijecddzs/100 WBC (Bld)N/[facility] Monocytes/100 WBC Manual cnt (Bld)Ordered By: Marlon Alba on 07-22-2023 Monocytes/100 WBC (Bld)6 %2-11Children[facility] Hospital For RehabilitationNeutrophils Auto (Bld) [#/Vol]Ordered By: Marlon Alba on 81-48-6440Tuytqobqanm (Bld) [#/Vol]N/A [facility] For RehabilitationNeutrophils/100 WBC Auto (Bld)Ordered By: Marlon Alba on 79-22-7122Phjdkgvqfmp/100 WBC (Bld)N/[facility] Medical CenterNitrite Test strip Ql (U)Ordered By: Marlon Alba on 87-72-2535Efzeqbn Ql (U)NegativeNegativeChildren'S Hospital For RehabilitationNo Panel InformationOrdered By: Marlon Alba on 70-14-9545Omdoilwea GFR (CKD-EPI)> 60.0 mL/MinChildren'S Hospital For RehabilitationPharmacy Creatinine Clearance (Chem69.21Children[facility] Hospital For RehabilitationNucleated erythrocytes [Presence] in Blood by Automated countOrdered By: Marlon Alba on 86-39-9608Mxmzprdoa RBC Auto Ql (Bld)N/A [facility] For RehabilitationPlatelet adequacy [Presence] in Blood by Light microscopyOrdered By: Marlon Alba on 07-60-4200Ltrmkamhi LM Ql (Bld)Decreased NormalChildren'S Hospital For RehabilitationPlatelet mean volume Auto (Bld) [Entitic vol]Ordered By: Marlon Alba on 84-63-5649Bbpsmfop mean volume (Bld) [Entitic vol]7.8 fL6.3-10.7FOhioHealth Arthur G.H. Bing, MD, Cancer CenterPlatelet morphology finding [Identifier] in BloodOrdered By: Marlon Alba on 14-43-0075Dblcxjcv morphology finding Nom (Bld)NormalNormalChildren'S Hospital For RehabilitationPlatelets Auto (Bld) [#/Vol]Ordered By: Marlon Alba on 09-41-4150Szmcfomey (Bld) [#/Vol]26 10*3/vE050-116CicpbgsloChildren'S Hospital For RehabilitationComment on above:Critical valueresult calledat 2005 on 07/22/23Polychromasia [Presence] in Blood by Light microscopyOrdered By: Marlon Alba on 63-39-3363Omvipnevccdrv LM Ql (Bld)Slight [facility] For RehabilitationPotassium [Moles/volume] in Serum or Plasma Ordered By: Marlon Alba on 86-54-6264Bhwrzraia [Moles/Vol]3.8 mmol/L3.5-5.1 [facility] RehabilitationProtein Auto test strip (U) [Mass/Vol]Ordered By: Marlon Alba on 05-31-3894Ipbmnod (U) [Mass/Vol]NegativeNegativeChildren'S Hospital For RehabilitationProtein [Mass/volume] in Serum or PlasmaOrdered By: Marlon Alba on 44-95-7914Vbgxydx [Mass/Vol]5.6 g/dL6.4-8.9[facility] For RehabilitationRB Auto (Bld) [#/Vol]Ordered By: Marlon Alba on 66-76-7076WDE (Bld) [#/Vol]3.10 10*6/uL3.60-5.00[facility] For RehabilitationRB morphologyOrdered By: Marlon Alba on 14-46-6254GQV morphology finding Nom (Bld) N/AFKettering Health Daytonegmented neutrophils/100 WBC Manual cnt (Bld)Ordered By: Marlon Alba on 01-01-3630Oswizykzs neutrophils/100 WBC (Bld)60 %50-70Summa Healtherum or plasma albumin/globulin mass ratioOrdered By: Marlon Alba on 46-69-0841Abmxgjl/Globulin [Mass ratio]1.8 {ratio}Summa Healtherum or plasma anion gap determination Ordered By: Marlon Alba on 56-83-2761Qyiya gap [Moles/Vol]6.9 mmol/L6.0-15.0 Summa Healthodium [Moles/volume] in Serum or PlasmaOrdered By: Marlon Alba on 17-29-0385Qcjtid [Moles/Vol]140 mmol/N790-718YoplfrscnSumma Healthpecific gravity Auto test strip (U) [Rel density]Ordered By: Marlon Alba on 83-22-1568Rxvjmqlo gravity (U) [Rel density]1.0111.001-1.030 Summa Healthquamous epithelial cells detection in urine sediment by light microscopyOrdered By: Marlon Alba on 56-35-4590Sgdpxqvapg cells.squamous LM Ql (Urine sed)1-2 [HPF]0-2FOhioHealth Arthur G.H. [facility], [facility], Cancer Center Urea nitrogen [Mass/volume] in Serum or PlasmaOrdered By: Marlon Alba on 24-50-8520Qany nitrogen [Mass/Vol]13 mg/dL7-25[facility] Urine bacteria detection by automated methodOrdered By: Marlon Alba on 48-44-1029Sitlqmqy Auto Ql (U)None seenNone SeenChildren'S Hospital For RehabilitationUrine clarity by refractometry automatedOrdered By: Marlon Alba on 61-48-7767Worafda Refractometry automated (U)ClearClearFOhioHealth Arthur G.H. Bing, MD, Cancer CenterUrine culture routineOrdered By: Marlon Alba on 07-22-2023 Bacteria identified Cx Nom (U)Strep agalactiae - (group b)[facility] For RehabilitationUrine glucose measurement by automated test strip (mass/volume) Ordered By: Marlon Alba on 50-21-2731Stwrxkf Auto test strip (U) [Mass/Vol] Normal mg/dLNormalChildren'S Hospital For RehabilitationUrine hemoglobin detection by automated test stripOrdered By: Marlon Alba on 17-57-7754Smjfjbnqkk Auto test strip Ql (U)NegativeNegativeChildren'S Hospital For RehabilitationUrine leukocyte esterase detection by automated test stripOrdered By: Marlon Alba on 07-22-2023 Leukocyte esterase Auto test strip Ql (U)3+NegativeChildren'S Hospital For RehabilitationUrobilinogen Auto test strip (U) [Mass/Vol]Ordered By: Marlon Anjali on 80-56-6094Gpotdatdtefv (U) [Mass/Vol]Normal mg/dLNormalChildren'S Hospital For RehabilitationWBC Auto (Bld) [#/Vol]Ordered By: Marlon Anjali on 99-96-6260MDX (Bld) [#/Vol]1.7 10*3/uL3.8-11.6FOhioHealth Arthur G.H. Bing, MD, Cancer CenterpH Auto test strip (U)Ordered By: Marlon Alba on 99-69-4258zQ (U)7.5 [pH]5.0-9.0[facility] For RehabilitationAnisocytosis LM Ql (Bld)Ordered By: Fabiola Marinelli on 48-85-2463Tkzlqdqibgzf Ql (Bld)SlightChildren'S Hospital For RehabilitationBasophils Auto (Bld) [#/Vol]Ordered By: Fabiola Marinelli on 17-85-0702Nxtkvtxkx (Bld) [#/Vol]0.0 10*3/uL0.0-0.2FOhioHealth Arthur G.H. Bing, MD, Cancer CenterBasophils/100 WBC Auto (Bld) Ordered By: Fabiola Marinelli on 56-91-0016Bhtqphewv/100 WBC (Bld)0.2 %.[facility] For RehabilitationEosinophils Auto (Bld) [#/Vol]Ordered By: Fabiola Marinelli on 89-40-8304Yetvniwhlud (Bld) [#/Vol]0.1 10*3/uL0.0-0.45[facility] For RehabilitationEosinophils/100 WBC Auto (Bld)Ordered By: Fabiola Marinelli on 07-17-2023 Eosinophils/100 WBC (Bld)8.7 %.[facility] For RehabilitationErythrocyte distribution width Auto (RBC) [Ratio]Ordered By: Fabiola Marinelli on 07-17-2023 Erythrocyte distribution width (RBC) [Ratio]16.6 %11.9-15.3FOhioHealth Arthur G.H. Bing, MD, Cancer CenterHematocrit Auto (Bld) [Volume fraction]Ordered By: Fabiola Marinelli on 68-67-7221Tcxbbkmuva (Bld) [Volume fraction]29.1 %34.0-46.4FOhioHealth Arthur G.H. Bing, MD, Cancer CenterHemoglobin [Mass/volume] in BloodOrdered By: Fabiola Marinelli on 96-49-8948Vhhzxtglof (Bld) [Mass/Vol]10.0 g/dL11.8-15.4FOhioHealth Arthur G.H. Bing, MD, Cancer CenterLeukocytes [#/volume] corrected for nucleated erythrocytes in Blood by Automated counOrdered By: Fabiola Marinelli on 28-98-4563DBB corrected for nucl RBC Auto (Bld) [#/Vol]1.4 10*3/uL3.8-11.6FOhioHealth Arthur G.H. [facility], [facility], Cancer Center Lymphocytes Auto (Bld) [#/Vol]Ordered By: Fabiola Marinelli on 55-60-2033Brznkztquwz (Bld) [#/Vol]0.5 10*3/uL1.00-4.8[facility] For RehabilitationLymphocytes/100 WBC Auto (Bld)Ordered By: Fabiola Marinelli on 35-64-7387Wksmgxygjae/100 WBC (Bld)32.9 %.[facility] CenterH Auto (RBC) [Entitic mass]Ordered By: Fabiola Marinelli on 29-69-7889XWF (RBC) [Entitic mass]33.2 pg24.7-34.3FOhioHealth Arthur G.H. Bing, MD, Cancer CenterMCHC Auto (RBC) [Mass/Vol]Ordered By: Fabiola Marinelli on 55-85-6044QXPQ (RBC) [Mass/Vol]34.2 g/dL32.0-35.0[facility] For RehabilitationMCV Auto (RBC) [Entitic vol]Ordered By: Fabiola Marinelli on 66-27-1364RYZ (RBC) [Entitic vol] 97.0 xW23-134ZnwpgmatfChildren'S Hospital For RehabilitationMonocytes Auto (Bld) [#/Vol] Ordered By: Fabiola Marinelli on 92-72-5626Tuuxryqne (Bld) [#/Vol]0.1 10*3/uL0.0-0.8 [facility] RehabilitationMonocytes/100 WBC Auto (Bld)Ordered By: Fabiola Marinelli on 00-57-2122Ohzmqjpra/100 WBC (Bld)8.9 %.[facility] For RehabilitationNeutrophils Auto (Bld) [#/Vol]Ordered By: Fabiola Marinelli on 07-17-2023 Neutrophils (Bld) [#/Vol]0.7 10*3/uL1.8-7.7FOhioHealth Arthur G.[facility] Cancer Center Neutrophils/100 WBC Auto (Bld)Ordered By: Fabiola Marinelli on 77-02-1452Yfgftbtdywh/100 WBC (Bld)49.3 %.[facility] For RehabilitationNucleated erythrocytes [Presence] in Blood by Automated countOrdered By: Fabiola Marinelli on 07-17-2023 Nucleated RBC Auto Ql (Bld)0.4 /100{WBC}0-0.5FOhioHealth Arthur G.H. [facility], [facility], Cancer Center Ovalocyte detectionOrdered By: Fabiola Marinelli on 96-35-4793Vuxhvbzikw LM Ql (Bld) [facility] HospitalPlatelet adequacy [Presence] in Blood by Light microscopyOrdered By: Fabiola Marinelli on 91-57-9126Ardbrcfdv LM Ql (Bld) DecreasedNormWood County HospitalPlatelet mean volume Auto (Bld) [Entitic vol]Ordered By: Fabiola Marinelli on 59-01-9126Cbmomwnx mean volume (Bld) [Entitic vol]8.3 fL6.3-10.7FOhioHealth Arthur G.H. Bing, MD, Cancer CenterPlatelet morphology finding [Identifier] in BloodOrdered By: Fabiola Marinelli on 10-03-9766Nbclkhcr morphology finding Nom (Bld)NormalNoLutheran Hospital Platelets Auto (Bld) [#/Vol]Ordered By: Fabiola Marinelli on 00-08-7277Jckwagxzb (Bld) [#/Vol]24 10*3/gY511-247DkktomrnjChildren'S Hospital For RehabilitationComment on above: Critical valueresult calledat 1018 on 07/17/23Poikilocytosis [Presence] in Blood by Light microscopyOrdered By: Fabiola Marinelli on 45-63-4042Ofcpqyydjgmdob LM Ql (Bld)[facility] Children's HospitalRBC Auto (Bld) [#/Vol]Ordered By: Fabiola Marinelli on 46-06-8527RPL (Bld) [#/Vol]3.00 10*6/uL3.60-5.00[facility] morphologyOrdered By: Fabiola Marinelli on 48-83-9838RDS morphology finding Nom (Bld)N/AFOhioHealth Arthur G.H. Bing, MD, Cancer CenterWBC Auto (Bld) [#/Vol] Ordered By: Fabiola Marinelli on 80-31-8844AJR (Bld) [#/Vol]1.4 10*3/uL3.8-11.6FOhioHealth Arthur G.H. Bing, MD, Cancer CenterBasophil percentageOrdered By: Fabiola Yves on 07-08-2023 Basophil percentageBasophil lguhrobvmg58-399VrzrxdtkoChildren'S Hospital For Rehabilitation Monocyte %Ordered By: Fabiola Marinelli on 03-41-3253Uadjobbw %85 ug/mL32-395MfjaqhokmChildren'S Hospital For RehabilitationComment on above:This test was developed and its performance characteristicsdetermined by [employer]. It has not been cleared orapproved by the Food and Drug Administration. Detection Limit = 5Performed at: [address] [id number] Director: Maxine Briones MD, Phone: [phone] or plasma ceruloplasmin measurement (mass/volume)Ordered By: Fabiola Berumense on 68-02-1406Pjaxdcifsvhsn [Mass/Vol]19.6 mg/dL19.0-39.0[facility] For RehabilitationComment on above:Performed at: [facility] [employer] [id number] Director: Lagn Knight PhD, Phone: [phone] [Mass/Vol]Serum or plasma ceruloplasmin measurement (mass/volume)19.0-39.0[facility] For RehabilitationClinic Note - Heme Onc Schedulingon 27-61-9604Rmkyop Note - Heme Onc SchedulingRetrieve Patient Instructions: Patient Instructions: Patient Instructions: RetrievePatient Instructions Return Appointment: Physician/Dept/Saroj Lindquist Appointment Date & [id number] 01:40 [facility] Commentslabs at 1:00 [address] 1st floor across from Desk A End of Visit Documentation: Clinic Location/Phone Number: Clinic Location/Phone Number: [facility] End Of Visit MU Report Item: Visit Summary given or mailed to patientyes Mailed to patient Electronic Signatures: Aracelis Tomlinson (SEC) (Signed 02-Jul-2023 09:48) Authored: Retrieve Patient Instructions, RETURN VISITS, End of Visit Documentation Last Updated: 02-Jul-2023 09:48 by Aracelis Tomlinson (SEC)[facility] Onamia HospitalAlanine aminotransferase [Enzymatic activity/volume] in Serum or Plasma Ordered By: Fabiola Marinelli on 46-60-3304YGG [Catalytic activity/Vol]29 U/L7-52 [facility] For RehabilitationAlbumin [Mass/volume] in Serum or Plasma by Bromocresol green (BCG) dye binding methoOrdered By: Fabiola Marinelli on 07-01-2023 Albumin BCG dye [Mass/Vol]3.5 g/dL3.5-5.7FOhioHealth Arthur G.H. [facility], [facility], Cancer Center Alkaline phosphatase [Enzymatic activity/volume] in Serum or PlasmaOrdered By: Fabiola Marinelli on 94-61-2846PME [Catalytic activity/Vol]89 U/Z79-447QkstfebtkChildren'S Hospital For RehabilitationAnisocytosis LM Ql (Bld)Ordered By: Fabiola Marinelli on 20-07-6360Soviauloyhzx Ql (Bld)SlightChildren'S Hospital For RehabilitationAspartate aminotransferase [Enzymatic activity/volume] in Serum or PlasmaOrdered By: Fabiola Marinelli on 61-05-9087WOX [Catalytic activity/Vol]33 U/E30-40IzqxoumjvChildren'S Hospital For RehabilitationBasophils Auto (Bld) [#/Vol]Ordered By: Fabiola Marinelli on 07-01-2023 Basophils (Bld) [#/Vol]0.0 10*3/uL0.0-0.2FOhioHealth Arthur G.H. [facility], Cancer Center Basophils/100 WBC Auto (Bld)Ordered By: Fabiola Marinelli on 52-24-0205Wcemdmbib/100 WBC (Bld)0.2 %.[facility] For RehabilitationBilirubin.total [Mass/volume] in Serum or PlasmaOrdered By: Fabiola Marinelli on 89-93-0502Cavmtvxwa [Mass/Vol]1.1 mg/dL 0.3-1.0[facility] For RehabilitationCalcium [Mass/volume] in Serum or Plasma Ordered By: Fabiola Marinelli on 15-78-8603Tkubdjv [Mass/Vol]8.7 mg/dL8.6-10.3FOhioHealth Arthur G.H. Bing, MD, Cancer CenterCarbon dioxide, total [Moles/volume] in Serum or Plasma Ordered By: Fabiola Marinelli on 44-22-1727QD1 [Moles/Vol]32.1 mmol/L21.0-31.0[facility] For RehabilitationChloride [Moles/volume] in Serum or PlasmaOrdered By: Fabiola Marinelli on 23-33-6739Jyuhnjcq [Moles/Vol]107 mmol/B17-504VlpkzevkiChildren'S Hospital For RehabilitationCreatinine [Mass/volume] in Serum or PlasmaOrdered By: Fabiola Marinelli on 99-28-3370Sudjbersnh [Mass/Vol]0.49 mg/dL0.60-1.20[facility] For RehabilitationEosinophils Auto (Bld) [#/Vol]Ordered By: Fabiola Marinelli on 07-01-2023 Eosinophils (Bld) [#/Vol]0.1 10*3/uL0.0-0.45[facility] Eosinophils/100 WBC Auto (Bld)Ordered By: Fabiola Marinelli on 02-95-0693Sieynxkycjj/100 WBC (Bld)5.8 %.[facility] For RehabilitationErythrocyte distribution width Auto (RBC) [Ratio]Ordered By: Fabiola Marinelli on 13-46-3925Iepfjhuynxd distribution width (RBC) [Ratio]16.2 %11.9-15.3FOhioHealth Arthur G.H. Bing, MD, Cancer CenterGlobulin Calc (S) [Mass/Vol]Ordered By: Fabiola Marinelli on 35-63-6690Yfengyru (S) [Mass/Vol]1.9 g/dLChildren'S Hospital For RehabilitationGlucose [Mass/volume] in Serum or Plasma Ordered By: Fabiola Marinelli on 14-34-4466Hqltowz [Mass/Vol]110 mg/iX33-715ElkibtictChildren'S Hospital For RehabilitationComment on above:ADA recommended reference rangeRandom Glucose Reference Range is dependent on time and content of last meal. Glucose of more than 200 mg/dL in a nonstressed, ambulatory subject supports the diagnosisof Diabetes Mellitus.Hematocrit Auto (Bld) [Volume fraction]Ordered By: Fabiola Marinelli on 57-98-0691Paeudcmnbl (Bld) [Volume fraction]31.0 %34.0-46.4 [facility] For RehabilitationHemoglobin [Mass/volume] in BloodOrdered By: Fabiola Marinelli on 37-44-4723Undngfsneg (Bld) [Mass/Vol]10.5 g/dL11.8-15.4FOhioHealth Arthur G.H. Bing, MD, Cancer CenterIgA [Mass/volume] in Serum or PlasmaOrdered By: Fabiola Marinelli on 21-51-4897HcV [Mass/Vol]38 mg/dR70-206ArhvmvlkqChildren'S Hospital For Rehabilitation Comment on above:Result confirmed on concentration.IgG [Mass/volume] in Serum or PlasmaOrdered By: Fabiola Marinelli on 47-11-2745RiL [Mass/Vol]535 mg/eT002-3028 [facility] For RehabilitationIgM [Mass/volume] in Serum or PlasmaOrdered By: Fabiola Marinelli on 17-13-9684YmU [Mass/Vol]33 mg/lF10-792NmnbanbnqChildren'S Hospital For RehabilitationComment on above:Performed at: [facility] [address] [id number] Director: Lang Knight PhD, Phone: [phone] Immunoglobulin light chains.kappa.free [Mass/volume] in SerumOrdered By: Fabiola Marinelli on 52-29-3535Ywvtvmamhyudsq light chains.kappa.free (S) [Mass/Vol]11.1 mg/L3.3-19.4FOhioHealth Arthur G.H. Bing, MD, Cancer CenterImmunoglobulin light chains.kappa.free/Immunoglobulin light chains.lambda.free [MassOrdered By: Fabiola Marinelli on 19-71-2724Fggkdyplhinily light chains.kappa.free/Immunoglobulin light chains.lambda.free (S) [Mass ratio]0.040.26-1.65[facility] For RehabilitationComment on above:Performed at: [facility] [address] [id number] Director: Lang Knight PhD, Phone: [phone] Immunoglobulin light chains.lambda.free [Mass/volume] in Serum or PlasmaOrdered By: Fabiola Marinelli on 57-60-9925Dkipmeruglrvnj light chains.lambda.free [Mass/Vol] 306.6 mg/L5.7-26.3FOhioHealth Arthur G.H. Bing, MD, Cancer CenterLeukocytes [#/volume] corrected for nucleated erythrocytes in Blood by Automated counOrdered By: Fabiola Marinelli on 47-83-6759LUG corrected for nucl RBC Auto (Bld) [#/Vol]1.6 10*3/uL 3.8-11.6FOhioHealth Arthur G.H. Bing, MD, Cancer CenterLymphocytes Auto (Bld) [#/Vol]Ordered By: Fabiola Marinelli on 80-04-8579Xsctopfjocw (Bld) [#/Vol]0.5 10*3/uL1.00-4.8[facility] For RehabilitationLymphocytes/100 WBC Auto (Bld)Ordered By: Fabiola Marinelli on 99-44-1922Xclekzpgunj/100 WBC (Bld)31.1 %.[facility] CenterH Auto (RBC) [Entitic mass]Ordered By: Fabiola Marinelli on 45-22-8318JVP (RBC) [Entitic mass]33.0 pg24.7-34.3FOhioHealth Arthur G.H. Bing, MD, Cancer CenterMCHC Auto (RBC) [Mass/Vol] Ordered By: Fabiola Marinelli on 13-21-4607IIPZ (RBC) [Mass/Vol]33.8 g/dL32.0-35.0 [facility] For RehabilitationMCV Auto (RBC) [Entitic vol]Ordered By: Fabiola Marinelli on 95-63-0222OXD (RBC) [Entitic vol]97.5 aP78-387PmqtlvxnbChildren'S Hospital For RehabilitationMonocytes Auto (Bld) [#/Vol]Ordered By: Fabiola Marinelli on 07-01-2023 Monocytes (Bld) [#/Vol]0.2 10*3/uL0.0-0.8[facility] Monocytes/100 WBC Auto (Bld)Ordered By: Fabiola Marinelli on 79-66-5335Cyumfkcam/100 WBC (Bld)10.9 %.[facility] For RehabilitationNeutrophils Auto (Bld) [#/Vol] Ordered By: Fabiola Marinelli on 21-31-3875Wpozzjljsby (Bld) [#/Vol]0.8 10*3/uL1.8-7.7 [facility] For RehabilitationNeutrophils/100 WBC Auto (Bld)Ordered By: Fabiola Marinelli on 62-26-1184Glnkubxzihb/100 WBC (Bld)52.0 %.[facility] For RehabilitationNo Panel InformationOrdered By: Fabiola Marinelli on 03-19-0570Rudkcnbdu GFR (CKD-EPI)> 60.0 mL/MinChildren'S Hospital For RehabilitationPharmacy Creatinine Clearance (Chem69.42[facility]> 60.0 mL/MinChildren'S Hospital For Rehabilitation69.42[facility] RehabilitationNucleated erythrocytes [Presence] in Blood by Automated countOrdered By: Fabiola Marinelli on 08-90-5735Mmvocqmlw RBC Auto Ql (Bld)0.3 /100{WBC}0-0.5FOhioHealth Arthur G.H. Bing, MD, Cancer CenterOvalocyte detectionOrdered By: Fabiola Marinelli on 77-38-6251Qgaxgpeihd LM Ql (Bld)[facility]'s HospitalPlatelet adequacy [Presence] in Blood by Light microscopyOrdered By: Fabiola Marinelli on 70-33-6550Zyhnhsyie LM Ql (Bld)DecreasedNoLutheran HospitalPlatelet mean volume Auto (Bld) [Entitic vol]Ordered By: Fabiola Marinelli on 80-34-6298Kriflmkf mean volume (Bld) [Entitic vol]8.0 fL6.3-10.7FOhioHealth Arthur G.H. Bing, MD, Cancer CenterPlatelet morphology finding [Identifier] in BloodOrdered By: Fabiola Marinelli on 32-84-9877Wpxkpiuu morphology finding Nom (Bld)NormalDoctors Hospital Platelets Auto (Bld) [#/Vol]Ordered By: Fabiola Marinelli on 12-93-0243Xvkyvnzwq (Bld) [#/Vol]26 10*3/yH725-094RemglpwyjChildren'S Hospital For RehabilitationPoikilocytosis [Presence] in Blood by Light microscopyOrdered By: Fabiola Marinelli on 07-01-2023 Poikilocytosis LM Ql (Bld)[facility] Children's HospitalPolychromasia [Presence] in Blood by Light microscopyOrdered By: Fabiola Marinelli on 07-01-2023 Polychromasia LM Ql (Bld)[facility] Children's HospitalPotassium [Moles/volume] in Serum or PlasmaOrdered By: Fabiola Marinelli on 57-31-0915Leskqruzl [Moles/Vol]3.8 mmol/L3.5-5.1FOhioHealth Arthur G.H. Bing, MD, Cancer CenterProtein [Mass/volume] in Serum or PlasmaOrdered By: Fabiola Marinelli on 01-15-3043Rdlascw [Mass/Vol]5.4 g/dL6.4-8.9[facility] For RehabilitationRBC Auto (Bld) [#/Vol] Ordered By: Fabiola Berumense on 04-63-0928GSL (Bld) [#/Vol]3.18 10*6/uL3.60-5.00 [facility] morphologyOrdered By: Fabiola Marinelli on 65-40-5555AHO morphology finding Nom (Bld)N/AFOhioHealth Arthur G.H. Bing, MD, Cancer Center Serum or plasma albumin/globulin mass ratioOrdered By: Fabiola Marinelli on 07-01-2023 Albumin/Globulin [Mass ratio]1.8 {ratio}Summa Healtherum or plasma anion gap determinationOrdered By: Fabiola Marinelli on 05-21-7704Hlvnn gap [Moles/Vol]6.7 mmol/L6.0-15.0Summa Healthodium [Moles/volume] in Serum or PlasmaOrdered By: Fabiola Marinelli on 35-29-0655Ctknlq [Moles/Vol]142 mmol/Z821-209CwxzciczwChildren'S Hospital For RehabilitationUrea nitrogen [Mass/volume] in Serum or PlasmaOrdered By: Fabiola Yves on 92-07-4903Ejnu nitrogen [Mass/Vol]11 mg/dL7-25[facility] For RehabilitationWBC Auto (Bld) [#/Vol] Ordered By: Fabiola Yves on 53-21-8506IFS (Bld) [#/Vol]1.6 10*3/uL3.8-11.6FOhioHealth Arthur G.H. Bing, MD, Cancer CenterAMB - Narrative Note Nursing-called patient with scheduleon 55-25-6207KUR - Narrative Note Nursing-called patient with schedule Topic and Description: Topic: called patient with schedule Description: Patient was a NEW virtual appointment on 06/25/2023. Discussed next visit with patient. Reminded her to get labs 1st and to go to desk C to see Dr. Lindquist on 07/23/2023 asked for 140p time. Asked care professionals to mail appointments. all orders placed Marshal Oneil RN Electronic Signatures: Ellie Oneil (LES) (Signed 26-Jun-2023 18:57) Authored: Topic and Description Last Updated: 26-Jun-2023 18:57 by Ellie OneilRN)[facility] HospitalClinic Note - Heme Onc-Follow Up Visiton 14-42-9699Mwjwkr Note - Heme Onc- Follow Up VisitPatient Visit Information: Visit Type: Follow Up Visit Cancer History: Treatment Synopsis: She has been referred from Dr. Marinelli at [facility]. 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 Kumari, and then Dr. Cummings. 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 Marrow 05/2023 1q+, 4p-, 13q/-13, 14q- and 16q- 8424-2778 Observation 2019 Palliative XRT both hips 800 [...] Results Surgical Pathology [Oct 08 2021 5:28PM] ([id number]) Specimens: [facility], BM21-40 ( 05/03/2021) Name MOJGAN PÉREZ Pathologist: INOCENCIA TSANG MD Date of Procedure: 10/07/2021 Date Received: 10/07/2021 Date Reported 10/08/2021 Submitting Physician: PITER BENAVIDEZ MD Location: [facility] Other External # [place] [id number] FINAL DIAGNOSIS A&B: BONE MARROW, ASPIRATE WITH CLOT AND CORE BIOPSY WITH TOUCH IMPRINT, SITE UNSPECIFIED ([facility], BM21-40 ( 05/03/2021): --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 NOTE: Per [employer] report, a 0.2% CD56+, CD138+, CD38-, lambda+ monoclonal plasma cell population was detected. Plasma cells are 1.5% by differe (more content not included)...NormalUH Englewood Hospital And Medical CenterAlanine aminotransferase [Enzymatic activity/volume] in Serum or PlasmaOrdered By: Fabiola Marinelli on 36-56-7761JQG [Catalytic activity/Vol]15 U/L7-52[facility] For RehabilitationAlbumin [Mass/volume] in Serum or Plasma by Bromocresol green (BCG) dye binding methoOrdered By: Fabiola Marinelli on 07-07-8940Giynqah BCG dye [Mass/Vol]3.7 g/dL3.5-5.7FOhioHealth Arthur G.H. Bing, MD, Cancer CenterAlkaline phosphatase [Enzymatic activity/volume] in Serum or PlasmaOrdered By: Fabiola Marinelli on 62-44-2019IET [Catalytic activity/Vol]87 U/B31-517XsgkwrrrxChildren'S Hospital For RehabilitationAnisocytosis LM Ql (Bld)Ordered By: Fabiola Marinelli on 02-22-9644Bsoncfgrnbpe Ql (Bld)SlightChildren'S Hospital For RehabilitationAspartate aminotransferase [Enzymatic activity/volume] in Serum or PlasmaOrdered By: Fabiola Marinelli on 64-84-9311WRB [Catalytic activity/Vol]23 U/A58-73Hulmsrlcd Regional Medical CenterBasophils Auto (Bld) [#/Vol]Ordered By: Fabiola Marinelli on 70-86-6779Uwxtyouol (Bld) [#/Vol]N/[facility] Medical CenterBasophils/100 WBC Auto (Bld) Ordered By: Fabiola Marinelli on 39-70-6184Tvakekwbg/100 WBC (Bld)N/[facility] Medical CenterBilirubin.total [Mass/volume] in Serum or PlasmaOrdered By: Fabiola Marinelli on 85-58-7828Obeocogyv [Mass/Vol]1.0 mg/dL0.3-1.0[facility] RehabilitationCalcium [Mass/volume] in Serum or PlasmaOrdered By: Fabiola Marinelli on 08-52-6007Nwjdulj [Mass/Vol]9.0 mg/dL8.6-10.3FOhioHealth Arthur G.H. [facility], [facility], Cancer Center Carbon dioxide, total [Moles/volume] in Serum or PlasmaOrdered By: Fabiola Marinelli on 75-64-5342AC2 [Moles/Vol]31.4 mmol/L21.0-31.0[facility] Chloride [Moles/volume] in Serum or PlasmaOrdered By: Fabiola Marinelli on 06-03-2023 Chloride [Moles/Vol]106 mmol/B66-553QbwyugdmnChildren'S Hospital For RehabilitationCreatinine [Mass/volume] in Serum or PlasmaOrdered By: Fabiola Marinelli on 73-08-3148Xgfwftnbuw [Mass/Vol]0.44 mg/dL0.60-1.20[facility] RehabilitationEosinophils Auto (Bld) [#/Vol]Ordered By: Fabiola Marinelli on 03-80-6414Ytwchqzgfjg (Bld) [#/Vol]N/A [facility] RehabilitationEosinophils/100 WBC Auto (Bld)Ordered By: Fabiola Marinelli on 24-80-7989Ujtoqjzwrex/100 WBC (Bld)N/[facility] Eosinophils/100 WBC Manual cnt (Bld)Ordered By: Fabiola Marinelli on 06-03-2023 Eosinophils/100 WBC (Bld)3 %1-3FOhioHealth Arthur G.H. Bing, MD, Cancer CenterEosinophils/100 WBC (Bld)Eosinophils/100 leukocytes in Blood by Manual count1-3FOhioHealth Arthur G.H. Bing, MD, Cancer CenterErythrocyte distribution width Auto (RBC) [Ratio]Ordered By: Fabiola Marinelli on 06-23-1499Plcubvddvxb distribution width (RBC) [Ratio]16.3 % 11.9-15.3FOhioHealth Arthur G.H. Bing, MD, Cancer CenterGiant platelets/100 leukocytes [Ratio] in Blood by Manual countOrdered By: Fabiola Marinelli on 54-97-0284Vdmqz platelets/100 WBC Manual cnt (Bld) [Ratio]6 /100{WBC}[facility] For RehabilitationGiant platelets/100 WBC Manual cnt (Bld) [Ratio]Giant platelets/100 leukocytes [Ratio] in Blood by Manual countChildren'S Hospital For RehabilitationGlobulin Calc (S) [Mass/Vol]Ordered By: Fabiola Marinelli on 58-27-3231Crbzhzfg (S) [Mass/Vol]1.8 g/dL [facility] RehabilitationGlucose [Mass/volume] in Serum or PlasmaOrdered By: Fabiola Marinelli on 67-49-6823Zmiqpop [Mass/Vol]115 mg/rF45-450KmwahnhfuChildren'S Hospital For RehabilitationHematocrit Auto (Bld) [Volume fraction]Ordered By: Fabiola Marinelli on 95-38-5099Zendivvpif (Bld) [Volume fraction]30.3 %34.0-46.4FOhioHealth Arthur G.H. Bing, MD, Cancer CenterHemoglobin [Mass/volume] in BloodOrdered By: Fabiola Marinelli on 87-48-5873Photgbloly (Bld) [Mass/Vol]10.3 g/dL11.8-15.4FOhioHealth Arthur G.H. Bing, MD, Cancer CenterIgA [Mass/volume] in Serum or PlasmaOrdered By: Fabiola Marinelli on 30-66-0304AyN [Mass/Vol]38 mg/cE14-702DskhilvteChildren'S Hospital For RehabilitationIgG [Mass/volume] in Serum or PlasmaOrdered By: Fabiola Marinelli on 48-72-5774EaT [Mass/Vol]525 mg/lB902-5812XspzltsybChildren'S Hospital For RehabilitationIgM [Mass/volume] in Serum or PlasmaOrdered By: Fabiola Marinelli on 82-99-4750TpV [Mass/Vol]32 mg/kU89-819 [facility] RehabilitationImmunoglobulin light chains.kappa.free [Mass/volume] in SerumOrdered By: Fabiola Marinelli on 19-33-3746Xvgicqodukaudz light chains.kappa.free (S) [Mass/Vol]13.9 mg/L3.3-19.4FOhioHealth Arthur G.H. Bing, MD, Cancer CenterImmunoglobulin light chains.kappa.free/Immunoglobulin light chains.lambda.free [MassOrdered By: Fabiola Marinelli on 26-18-2632Khukgphvcktjmc light chains.kappa.free/Immunoglobulin light chains.lambda.free (S) [Mass ratio]0.06 0.26-1.65[facility] RehabilitationImmunoglobulin light chains.lambda.free [Mass/volume] in Serum or PlasmaOrdered By: Fabiola Marinelli on 93-42-7919Dvyacteclsdpjh light chains.lambda.free [Mass/Vol]241.0 mg/L5.7-26.3 [facility] For RehabilitationLeukocytes [#/volume] corrected for nucleated erythrocytes in Blood by Automated counOrdered By: Fabiola Marinelli on 93-59-2093JGY corrected for nucl RBC Auto (Bld) [#/Vol]1.7 10*3/uL3.8-11.6FOhioHealth Arthur G.H. Bing, MD, Cancer CenterLymphocytes Auto (Bld) [#/Vol]Ordered By: Fabiola Marinelli on 06-03-2023 Lymphocytes (Bld) [#/Vol]N/AFOhioHealth Arthur G.H. Bing, MD, Cancer CenterLymphocytes/100 WBC Auto (Bld)Ordered By: Fabiola Marinelli on 91-31-2593Oqhlofcrpar/100 WBC (Bld)N/A [facility] RehabilitationLymphocytes/100 WBC Manual cnt (Bld)Ordered By: Fabiola Marinelli on 84-11-0380Luknclvhngy/100 WBC (Bld)27 %18-42[facility] For RehabilitationLymphocytes/100 WBC (Bld)Lymphocytes/100 leukocytes in Blood by Manual yvcpv20-75RvbxklqbkTriHealth [facility] Auto (RBC) [Entitic mass] Ordered By: Fabiola Marinelli on 62-15-4737AXL (RBC) [Entitic mass]32.8 pg24.7-34.3 [facility] For RehabilitationMCHC Auto (RBC) [Mass/Vol]Ordered By: Fabiola Marinelli on 38-18-9807ASYR (RBC) [Mass/Vol]34.0 g/dL32.0-35.0[facility] For RehabilitationMCV Auto (RBC) [Entitic vol]Ordered By: Fabiola Marinelli on 86-45-4446IZM (RBC) [Entitic vol]96.5 gC09-298JwiinxmjoChildren'S Hospital For RehabilitationMicrocytes LM Ql (Bld)Ordered By: Fabiola Marinelli on 70-89-9605Jyzbqewkth Ql (Bld)[facility] HospitalMonocytes Auto (Bld) [#/Vol]Ordered By: Fabiola Marinelli on 91-27-0020Udzybxyiz (Bld) [#/Vol]N/[facility] Monocytes/100 WBC Auto (Bld)Ordered By: Fabiola Marinelli on 56-74-4949Stesftver/100 WBC (Bld)[facility] CampusMonocytes/100 WBC Manual cnt (Bld) Ordered By: Fabiola Marinelli on 80-34-3808Vmuqaxmck/100 WBC (Bld)9 %2-11[facility] RehabilitationMonocytes/100 WBC (Bld)Monocytes/100 leukocytes in Blood by Manual count2-11[facility] RehabilitationNeutrophils Auto (Bld) [#/Vol]Ordered By: Fabiola Marinelli on 39-05-6105Umzjhekhcry (Bld) [#/Vol][facility] CampusNeutrophils/100 WBC Auto (Bld)Ordered By: Fabiola Marinelli on 00-40-5791Mvkjwhdfsxm/100 WBC (Bld)[facility] CampusNo Panel InformationOrdered By: Fabiola Marinelli on 06-03-2023> 60.0 mL/MinChildren'S Hospital For Rehabilitation69.82[facility] RehabilitationNucleated erythrocytes [Presence] in Blood by Automated countOrdered By: Fabiola Marinelli on 06-03-2023 Nucleated RBC Auto Ql (Bld)[facility] CampusOvalocyte detectionOrdered By: Fabiola Marinelli on 69-00-2977Uhxnvplhqo LM Ql (Bld)[facility] CenterPlatelet adequacy [Presence] in Blood by Light microscopyOrdered By: Fabiola Marinelli on 83-46-8965Nxnsardns LM Ql (Bld)Decreased NormalChildren'S Hospital For RehabilitationPlatelet mean volume Auto (Bld) [Entitic vol]Ordered By: Fabiola Marinelli on 89-57-8924Sevemtoc mean volume (Bld) [Entitic vol] 8.2 fL6.3-10.7FOhioHealth Arthur G.H. Bing, MD, Cancer CenterPlatelet morphology finding [Identifier] in BloodOrdered By: Fabiola Marinelli on 75-69-8232Faphkmop morphology finding Nom (Bld)NormalNormalChildren'S Hospital For RehabilitationPlatelets Auto (Bld) [#/Vol]Ordered By: Fabiola Marinelli on 44-34-3462Lmtqzcnpr (Bld) [#/Vol]28 10*3/hO563-494NjnafipbwChildren'S Hospital For RehabilitationPoikilocytosis [Presence] in Blood by Light microscopyOrdered By: Fabiola Marinelli on 76-98-5218Euwvmtnjzpxwks LM Ql (Bld)[facility]'s HospitalPolychromasia [Presence] in Blood by Light microscopyOrdered By: Fabiola Marinelli on 54-45-0497Zkfnjahcupais LM Ql (Bld) [facility] HospitalPotassium [Moles/volume] in Serum or PlasmaOrdered By: Fabiola Marinelli on 29-32-9197Edsugtgiq [Moles/Vol]3.9 mmol/L3.5-5.1 [facility] RehabilitationProtein [Mass/volume] in Serum or PlasmaOrdered By: Fabiola Marinelli on 56-46-7171Jcceuzc [Mass/Vol]5.5 g/dL6.4-8.9[facility] For RehabilitationRB Auto (Bld) [#/Vol]Ordered By: Fabiola Marinelli on 62-21-2565RTU (Bld) [#/Vol]3.14 10*6/uL3.60-5.00[facility] For RehabilitationRB morphology Ordered By: Fabiola Marinelli on 54-49-1518LZC morphology finding Nom (Bld)N/AFKettering Health Daytonegmented neutrophils/100 WBC Manual cnt (Bld)Ordered By: Fabiola Marinelli on 27-81-9953Cthxpecnq neutrophils/100 WBC (Bld)60 %50-70Summa Healthegmented neutrophils/100 WBC (Bld)Manual blood segmented neutrophils/100 ukplqmpezl82-26JopxnatqwSumma Healtherum or plasma albumin/globulin mass ratioOrdered By: Fabiola Marinelli on 43-28-0367Utxyyvt/Globulin [Mass ratio]2.1 {ratio}[facility]ma Healtherum or plasma anion gap determinationOrdered By: Fabiola Marinelli on 06-77-9388Pooga gap [Moles/Vol]8.5 mmol/L6.0-15.0Summa Healthodium [Moles/volume] in Serum or PlasmaOrdered By: Fabiola Marinelli on 24-42-3277Cesjac [Moles/Vol]142 mmol/I435-141 [facility] For RehabilitationUrea nitrogen [Mass/volume] in Serum or Plasma Ordered By: Fabiola Marinelli on 43-66-5578Pazv nitrogen [Mass/Vol]16 mg/dL7-25[facility] For RehabilitationWBC Auto (Bld) [#/Vol]Ordered By: Fabiola Marinelli on 69-42-5182GTK (Bld) [#/Vol]1.7 10*3/uL3.8-11.6FUniversity Hospitals Beachwood Medical Center Surgical Pathology Departmenton [id number] Surgical Pathology Department Name MOJGAN PÉREZ Pathologist: GALLO SHEA MD Date of Procedure: 05/29/2023 Date Received: 05/29/2023 Date Reported 06/03/2023 Submitting Physician: MARCUS MILES MD Location: [facility] External # [id number] FINAL DIAGNOSIS A. BONE MARROW, ASPIRATE WITH CLOT AND CORE BIOPSY WITH TOUCH IMPRINT, RIGHT POSTERIOR SUPERIOR ILIAC CREST ([facility], [id number] (02/24/2023): -- HYPOCELLULAR MARROW FOR AGE [...] result with 1q+, 4p (more content not included)...NormalJFK Johnson Rehabilitation Institute Comment on above:Performed By: #### CMP #### [facility] [id number] [place], [place] [address]Bfhhg Note - Heme Onc-cancel and rescheduleon 37-06-8435Nqdfi Note - Heme Onc-cancel and reschedulePhone Call Information: Patient Demographics: Name: MOJGAN PÉREZ Date: 1955 Address: [address] [place] [address] Primary Phone Number: [phone] Reason for Call: Reason for Callcancel and [...] [facility] 01-Jan-2023 16:05 242 Electronic Signatures: Kayli Rodriguez) (Signed 25-May-2023 13:23) Authored: Phone Call Information, Outpatient Medication Profile, Allergies, Results Last Updated: 25-May-2023 13:23 by Kayli Rodriguez)[facility] HospitalBasophils/100 WBC Manual cnt (Bld)Ordered By: Fabiola Marinelli on 04-10-2023 Basophils/100 WBC (Bld)2 %0-[address] [place], [place] [address]Basophils/100 WBC (Bld)Basophils/100 leukocytes in Blood by Manual count0-2FOhioHealth Arthur G.H. Bing, MD, Cancer CenterBlood toxic granulation detection by light microscopyOrdered By: Fabiola Marinelli on 06-67-3873Ehhbp granules LM Ql (Bld)SlightChildren'S Hospital For RehabilitationToxic granules LM Ql (Bld)Blood toxic granulation detection by light microscopyChildren'S Hospital For RehabilitationPlatelets Large [Presence] in Blood by Light microscopyOrdered By: Fabiola Marinelli on 90-09-7804Grrwapvll Large LM Ql (Bld)SlightChildren'S Hospital For RehabilitationFerritin [Mass/volume] in Serum or PlasmaOrdered By: Fabiola Marinelli on 99-93-7234Mlcsjvms [Mass/Vol]41.2 ng/mL 11.0-306.8[facility] Hospital For RehabilitationFerritin [Mass/Vol]Ferritin [Mass/volume] in Serum or Hjhbuy63.0-306.8[facility] Folate [Mass/volume] in Serum or PlasmaOrdered By: Fabiola Marinelli on 16-57-4733Sianed [Mass/Vol]27.0 ng/mL>5.9[facility] For RehabilitationComment on above: Folate reference range: >5.9 ng/mlThe WHO technical consultation on folate and vitamin r41bslfrxfuvzct has determined that folate concentrations lessthan 4 ng/ml are considered deficient.Folate [Mass/Vol]Folate [Mass/volume] in Serum or Plasma>5.9[facility] For RehabilitationIron [Mass/volume] in Serum or PlasmaOrdered By: Fabiola Marinelli on 39-70-0148Iaeo [Mass/Vol]82 ug/pI44-285DimakddfpChildren'S Hospital For RehabilitationIron [Mass/Vol]Iron [Mass/volume] in Serum or Plasma 50-212[facility] For RehabilitationIron binding capacity [Mass/volume] in Serum or PlasmaOrdered By: Fabiola Marinelli on 29-04-4112Rezs binding capacity [Mass/Vol]314 ug/yU220-873JsthwwnbiChildren'S Hospital For RehabilitationIron binding capacity [Mass/Vol]Iron binding capacity [Mass/volume] in Serum or Lkhdwv811-284 [facility] RehabilitationIron saturation [Mass Fraction] in Serum or PlasmaOrdered By: Fabiola Marinelli on 38-93-1665Hgkt saturation [Mass fraction]26.1 % 20-50[facility] For RehabilitationIron saturation [Mass fraction]Iron saturation [Mass Fraction] in Serum or Ylzyjh71-46CdwyepegdChildren'S Hospital For RehabilitationMonocyte %Ordered By: Fabiola Marinelli on 79-52-1649Ofllwxji %83 ug/eV66-379 [facility] Healtherum or plasma ceruloplasmin measurement (mass/volume)Ordered By: Fabiola Marinelli on 92-23-3815Fidtwpmikatfm [Mass/Vol]17.5 mg/dL19.0-39.0Summa Healtherum or plasma homocysteine measurement (moles/volume)Ordered By: Fabiola Marinelli on 74-68-5944Yxwiybrcxxkx [Moles/Vol]7.9 umol/L0.0-17.2FOhioHealth Arthur G.H. Bing, MD, Cancer CenterComment on above: Performed at: [address] [id number] Director: Lang Knight PhD, Phone: [phone] [Moles/Vol]Serum or plasma homocysteine measurement (moles/volume)0.0-17.2FKettering Health Daytonerum or plasma methylmalonate measurement (moles/volume)Ordered By: Fabiola Marinelli on 02-34-6008Bgznonlzmlbjmn [Moles/Vol]129 nmol/L0-378[facility] For RehabilitationComment on above:This test was developed and its performance characteristicsdetermined by [facility]. It has not been cleared orapproved by the Food and Drug Administration.Performed at: [address] [id number] Director: Maxine Briones MD, Phone: [phone] [Moles/Vol]Serum or plasma methylmalonate measurement (moles/volume)0-378[facility] For RehabilitationTransferrin [Mass/volume] in Serum or PlasmaOrdered By: Fabiola Marinelli on 80-70-5959Ckadujtgmwm [Mass/Vol]224 mg/wX720-962HbifkqnatChildren'S Hospital For RehabilitationTransferrin [Mass/Vol]Transferrin [Mass/volume] in Serum or Ocjzvz245-129FnlarzjwxChildren'S Hospital For RehabilitationVitamin B12 ser/plasOrdered By: Fabiola Marinelli on 97-70-7589Uwovbqfew (Vitamin B12) [Mass/Vol]1029 pg/gUOmvz483-962VazsxdyftChildren'S Hospital For Rehabilitation Cobalamin (Vitamin B12) [Mass/Vol]Vitamin B12 ser/dgjiViul694-560FppptcemzChildren'S Hospital For RehabilitationAlanine aminotransferase [Enzymatic activity/volume] in Serum or PlasmaOrdered By: Fabiola Marinelli on 82-38-0733TIQ [Catalytic activity/Vol]23 U/L7-52[facility] For RehabilitationAlbumin [Mass/volume] in Serum or Plasma by Bromocresol green (BCG) dye binding methoOrdered By: Fabiola Marinelli on 03-09-2023 Albumin BCG dye [Mass/Vol]3.6 g/dL3.5-5.7FOhioHealth Arthur G.H. Bing, MD, Cancer Center Alkaline phosphatase [Enzymatic activity/volume] in Serum or PlasmaOrdered By: Fabiola Marinelli on 56-95-6006JCZ [Catalytic activity/Vol]89 U/X46-107CbqxxqlypChildren'S Hospital For RehabilitationAnisocytosis LM Ql (Bld)Ordered By: Fabiola Marinelli on 76-00-0932Mhmuslwkolul Ql (Bld)SlightChildren'S Hospital For RehabilitationAspartate aminotransferase [Enzymatic activity/volume] in Serum or PlasmaOrdered By: Fabiola Marinelli on 89-50-9606QGX [Catalytic activity/Vol]25 U/L29-39EkxlezhyxChildren'S Hospital For RehabilitationBasophils Auto (Bld) [#/Vol]Ordered By: Fabiola Marinelli on 03-09-2023 Basophils (Bld) [#/Vol]0.0 10*3/uL0.0-0.2FOhioHealth Arthur G.H. Bing, MD, Cancer Center Basophils/100 WBC Auto (Bld)Ordered By: Fabiola Marinelli on 32-98-8849Nhfgkdwdk/100 WBC (Bld)0.1 %.[facility] For RehabilitationBilirubin.total [Mass/volume] in Serum or PlasmaOrdered By: Fabiola Marinelli on 39-37-5092Gsoyappfh [Mass/Vol]1.3 mg/dL 0.3-1.0[facility] For RehabilitationCalcium [Mass/volume] in Serum or Plasma Ordered By: Fabiola Marinelli on 84-42-9602Icwudtz [Mass/Vol]8.7 mg/dL8.6-10.3FOhioHealth Arthur G.H. Bing, MD, Cancer CenterCarbon dioxide, total [Moles/volume] in Serum or Plasma Ordered By: Fabiola Marinelli on 14-20-2943EY2 [Moles/Vol]27.8 mmol/L21.0-31.0[facility] For RehabilitationChloride [Moles/volume] in Serum or PlasmaOrdered By: Fabiola Marinelli on 57-97-6464Lqbektuu [Moles/Vol]105 mmol/S17-300TsmzamwfnChildren'S Hospital For RehabilitationCreatinine [Mass/volume] in Serum or PlasmaOrdered By: Fabiola Marinelli on 65-49-0979Csvqzrfgta [Mass/Vol]0.54 mg/dL0.60-1.20[facility] For RehabilitationEosinophils Auto (Bld) [#/Vol]Ordered By: Fabiola Marinelli on 03-09-2023 Eosinophils (Bld) [#/Vol]0.1 10*3/uL0.0-0.45[facility] Eosinophils/100 WBC Auto (Bld)Ordered By: Fabiola Marinelli on 65-03-8544Uaibecqyqjg/100 WBC (Bld)2.1 %.[facility] For RehabilitationErythrocyte distribution width Auto (RBC) [Ratio]Ordered By: Fabiola Marinelli on 81-82-1634Yjffbxcelkc distribution width (RBC) [Ratio]15.4 %11.9-15.3FOhioHealth Arthur G.H. Bing, MD, Cancer CenterGlobulin Calc (S) [Mass/Vol]Ordered By: Fabiola Marinelli on 37-02-3803Imlbhmxp (S) [Mass/Vol]1.6 g/dLChildren'S Hospital For RehabilitationGlucose [Mass/volume] in Serum or Plasma Ordered By: Fabiola Marinelli on 70-08-1809Yqekowj [Mass/Vol]100 mg/wA20-861CjejydkcoChildren'S Hospital For RehabilitationHematocrit Auto (Bld) [Volume fraction]Ordered By: Fabiola Marinelli on 74-04-0666Oobjegswsa (Bld) [Volume fraction]33.1 %34.0-46.4FOhioHealth Arthur G.H. Bing, MD, Cancer CenterHemoglobin [Mass/volume] in BloodOrdered By: Fabiola Marinelli on 46-47-9619Thbizpuetc (Bld) [Mass/Vol]11.1 g/dL11.8-15.4FOhioHealth Arthur G.H. Bing, MD, Cancer CenterIgA [Mass/volume] in Serum or PlasmaOrdered By: Fabiola Marinelli on 31-76-0460AyA [Mass/Vol]26 mg/tZ57-549TaotaejxgChildren'S Hospital For RehabilitationIgG [Mass/volume] in Serum or PlasmaOrdered By: Fabiola Marinelli on 35-63-3522OmB [Mass/Vol]596 mg/eR261-1572AbcktgxgyChildren'S Hospital For RehabilitationIgM [Mass/volume] in Serum or PlasmaOrdered By: Fabiola Marinelli on 50-72-1415JxF [Mass/Vol]27 mg/fQ09-282 [facility] RehabilitationImmunoglobulin light chains.kappa.free [Mass/volume] in SerumOrdered By: Fabiola Marinelli on 67-25-8075Xytnigijvtasnl light chains.kappa.free (S) [Mass/Vol]9.6 mg/L3.3-19.4FOhioHealth Arthur G.H. Bing, MD, Cancer CenterImmunoglobulin light chains.kappa.free/Immunoglobulin light chains.lambda.free [MassOrdered By: Fabiola Marinelli on 76-26-8116Uqznvjonxwrcid light chains.kappa.free/Immunoglobulin light chains.lambda.free (S) [Mass ratio]0.07 0.26-1.65[facility] RehabilitationImmunoglobulin light chains.lambda.free [Mass/volume] in Serum or PlasmaOrdered By: Fabiola Marinelli on 41-02-3537Snbmmcktvkusya light chains.lambda.free [Mass/Vol]128.9 mg/L5.7-26.3 [facility] For RehabilitationLeukocytes [#/volume] corrected for nucleated erythrocytes in Blood by Automated counOrdered By: Fabiola Marinelli on 85-28-2096WJD corrected for nucl RBC Auto (Bld) [#/Vol]2.4 10*3/uL3.8-11.6FOhioHealth Arthur G.H. Bing, MD, Cancer CenterLymphocytes Auto (Bld) [#/Vol]Ordered By: Fabiola Marinelli on 03-09-2023 Lymphocytes (Bld) [#/Vol]0.7 10*3/uL1.00-4.8[facility] Lymphocytes/100 WBC Auto (Bld)Ordered By: Fabiola Marinelli on 62-39-6223Zdflgypdhmc/100 WBC (Bld)30.2 %.[facility] Auto (RBC) [Entitic mass] Ordered By: Fabiola Marinelli on 90-80-7824ABB (RBC) [Entitic mass]33.0 pg24.7-34.3 [facility] CenterHC Auto (RBC) [Mass/Vol]Ordered By: Fabiola Marinelli on 69-77-3888MHOK (RBC) [Mass/Vol]33.4 g/dL32.0-35.0[facility] For RehabilitationMCV Auto (RBC) [Entitic vol]Ordered By: Fabiola Marinelli on 53-84-2401ABI (RBC) [Entitic vol]98.8 lC41-398VbpccymwkChildren'S Hospital For RehabilitationMonocytes Auto (Bld) [#/Vol]Ordered By: Fabiola Marinelli on 28-07-4390Puanqdofd (Bld) [#/Vol]0.3 10*3/uL 0.0-0.8[facility] For RehabilitationMonocytes/100 WBC Auto (Bld)Ordered By: Fabiola Marinelli on 67-92-9058Wvxcnjada/100 WBC (Bld)11.1 %.[facility] For RehabilitationNeutrophils Auto (Bld) [#/Vol]Ordered By: Fabiola Marinelli on 03-09-2023 Neutrophils (Bld) [#/Vol]1.4 10*3/uL1.8-7.7FOhioHealth Arthur G.[facility] Neutrophils/100 WBC Auto (Bld)Ordered By: Fabiola Marinelli on 75-43-5405Ktwudaonryv/100 WBC (Bld)56.5 %.[facility] For RehabilitationNo Panel InformationOrdered By: Fabiola Marinelli on 03-09-2023> 60.0 mL/MinChildren'S Hospital For Rehabilitation69.82 [facility] RehabilitationNucleated erythrocytes [Presence] in Blood by Automated countOrdered By: Fabiola Marinelli on 36-95-6064Pyipftszz RBC Auto Ql (Bld)0.0 /100{WBC}0-0.5FOhioHealth Arthur G.H. Bing, MD, Cancer CenterPlatelet adequacy [Presence] in Blood by Light microscopyOrdered By: Fabiola Marinelli on 61-30-2823Bmlzeenfq LM Ql (Bld)DecreasedNormalChildren'S Hospital For RehabilitationPlatelet mean volume Auto (Bld) [Entitic vol]Ordered By: Fabiola Marinelli on 24-64-3523Yssetdum mean volume (Bld) [Entitic vol]8.3 fL6.3-10.7FOhioHealth Arthur G.H. Bing, MD, Cancer CenterPlatelet morphology finding [Identifier] in BloodOrdered By: Fabiola Marinelli on 64-56-4419Oilteoxv morphology finding Nom (Bld)N/AFCleveland Clinic Mentor Hospital CenterPlatelets Auto (Bld) [#/Vol]Ordered By: Fabiola Marinelli on 09-71-1441Ztcoaimzw (Bld) [#/Vol]28 10*3/iU715-804HymwfailzChildren'S Hospital For RehabilitationPlatelets Large [Presence] in Blood by Light microscopyOrdered By: Fabiola Marinelli on 66-14-2752Qagvrahib Large LM Ql (Bld)[facility]'s HospitalPolychromasia [Presence] in Blood by Light microscopyOrdered By: Fabiola Marinelli on 90-25-0205Jedhqwivwlwzb LM Ql (Bld) [facility] HospitalPotassium [Moles/volume] in Serum or PlasmaOrdered By: Fabiola Marinelli on 49-16-6129Csaaruhlp [Moles/Vol]3.7 mmol/L3.5-5.1 [facility] RehabilitationProtein [Mass/volume] in Serum or PlasmaOrdered By: Fabiola Marinelli on 40-26-9893Qjjvihc [Mass/Vol]5.2 g/dL6.4-8.9[facility] For RehabilitationRB Auto (Bld) [#/Vol]Ordered By: Fabiola Marinelli on 92-55-4573LBY (Bld) [#/Vol]3.35 10*6/uL3.60-5.00[facility] For RehabilitationRB morphology Ordered By: Fabiola Marinelli on 42-37-1894VEH morphology finding Nom (Bld)N/[facility] Trumbullerum or plasma albumin/globulin mass ratioOrdered By: Fabiola Marinelli on 73-48-0458Msxucxv/Globulin [Mass ratio]2.3 {ratio}[facility]ma Healtherum or plasma anion gap determinationOrdered By: Fabiola Marinelli on 72-33-9125Ocpan gap [Moles/Vol]12.9 mmol/L6.0-15.0Summa Healthodium [Moles/volume] in Serum or PlasmaOrdered By: Fabiola Marinelli on 78-70-4526Yktpes [Moles/Vol]142 mmol/W365-034QglgtqobxChildren'S Hospital For Rehabilitation Teardrop cell detectionOrdered By: Fabiola Marinelli on 80-24-0806Lyxtgsiydv LM Ql (Bld) [facility] HospitalUrea nitrogen [Mass/volume] in Serum or PlasmaOrdered By: Fabiola Marinelli on 76-99-2521Bixm nitrogen [Mass/Vol]17 mg/dL7-25 [facility] For RehabilitationWBC Auto (Bld) [#/Vol]Ordered By: Fabiola Marinelli on 63-76-8188ZMA (Bld) [#/Vol]2.4 10*3/uL3.8-11.6FOhioHealth Arthur G.[facility]. [facility] Cancer Center Activated partial thromboplastin time (aPTT) in platelet poor plasma by coagulation aOrdered By: Fabiola Marinelli on 66-20-3244hGRU Coag (PPP) [Time]48.7 s 25.1-36.5FOhioHealth Arthur G.H. Bing, MD, Cancer CenterAnisocytosis LM Ql (Bld)Ordered By: Fabiola Marinelli on 05-44-4961Wkrdrecjvipv Ql (Bld)[facility] HospitalBasophils Auto (Bld) [#/Vol]Ordered By: Fabiola Marinelli on 75-04-8183Mabylijym (Bld) [#/Vol]N/[facility] CenterBasophils/100 WBC Auto (Bld) Ordered By: Fabiola Marinelli on 36-26-5559Sxwelqqgc/100 WBC (Bld)N/[facility] CenterEosinophils Auto (Bld) [#/Vol]Ordered By: Fabiola Marinelli on 02-24-2023 Eosinophils (Bld) [#/Vol]N/[facility] CenterEosinophils/100 WBC Auto (Bld)Ordered By: Fabiola Marinelli on 99-49-6923Lsikbwpxair/100 WBC (Bld)N/A [facility] RehabilitationEosinophils/100 WBC Manual cnt (Bld)Ordered By: Fabiola Marinelli on 21-46-0982Nirmoxcpkjx/100 WBC (Bld)4 %1-3FOhioHealth Arthur G.H. Bing, MD, Cancer CenterErythrocyte distribution width Auto (RBC) [Ratio]Ordered By: Fabiola Marinelli on 53-89-5924Lwwxbbpljie distribution width (RBC) [Ratio]14.6 %11.9-15.3 [facility] For RehabilitationHematocrit Auto (Bld) [Volume fraction]Ordered By: Fabiola Marinelli on 15-32-1047Rlvijairfu (Bld) [Volume fraction]31.2 %34.0-46.4 [facility] RehabilitationHemoglobin [Mass/volume] in BloodOrdered By: Fabiola Marinelli on 52-98-6046Qjfrqmozvd (Bld) [Mass/Vol]10.5 g/dL11.8-15.4FOhioHealth Arthur G.H. Bing, MD, Cancer CenterLaboratory - CoagulationOrdered By: Fabiola Marinelli on 73-51-9590PJ Coag (PPP) [Time]14.7 s9.0-12.9[facility] Leukocytes [#/volume] corrected for nucleated erythrocytes in Blood by Automated counOrdered By: Fabiola Marinelli on 67-17-3283CIP corrected for nucl RBC Auto (Bld) [#/Vol]1.2 10*3/uL3.8-11.6FOhioHealth Arthur G.H. Bing, MD, Cancer CenterLymphocytes Auto (Bld) [#/Vol]Ordered By: Fabiola Marinelli on [id number] (Bld) [#/Vol]N/A [facility] RehabilitationLymph[facility]/100 WBC Auto (Bld)Ordered By: Fabiola Marinelli on [id number]/100 WBC (Bld)N/AFOhioHealth Arthur G.[facility], MD, Cancer Center Lymphocytes/100 WBC Manual cnt (Bld)Ordered By: Fabiola Marinelli on 02-24-2023 Lymphocytes/100 WBC (Bld)59 %18-42[facility] CenterH Auto (RBC) [Entitic mass]Ordered By: Fabiola Marinelli on 38-59-8156AER (RBC) [Entitic mass] 33.1 pg24.7-34.3FOhioHealth Arthur G.H. Bing, MD, Cancer CenterMCHC Auto (RBC) [Mass/Vol] Ordered By: Fabiola Marinelli on 61-21-5501OYCG (RBC) [Mass/Vol]33.7 g/dL32.0-35.0 [facility] For RehabilitationMCV Auto (RBC) [Entitic vol]Ordered By: Fabiola Marinelli on 50-30-3828YYL (RBC) [Entitic vol]98.2 lT91-095EbklxumpyChildren'S Hospital For RehabilitationMonocytes Auto (Bld) [#/Vol]Ordered By: Fabiola Marinelli on 02-24-2023 Monocytes (Bld) [#/Vol]N/[facility] CenterMonocytes/100 WBC Auto (Bld)Ordered By: Fabiola Marinelli on 62-33-0787Tvtimtpbx/100 WBC (Bld)N/[facility] CenterMonocytes/100 WBC Manual cnt (Bld)Ordered By: Fabiola Marinelli on 28-29-0197Zhkaneydu/100 WBC (Bld)12 %2-11[facility] Neutrophils Auto (Bld) [#/Vol]Ordered By: Fabiola Marinelli on 84-46-9026Gjqeszywqva (Bld) [#/Vol]N/[facility] CenterNeutrophils/100 WBC Auto (Bld) Ordered By: Fabiola Marinelli on 85-80-5861Coxbbuqkwyn/100 WBC (Bld)N/[facility] CenterNo Panel InformationOrdered By: Fabiola Marinelli on 02-24-2023 14.7 s9.0-12.9[facility] For RehabilitationNucleated erythrocytes [Presence] in Blood by Automated countOrdered By: Fabiola Marinelli on 86-02-3923Zcblwgkll RBC Auto Ql (Bld)N/[facility] CenterOvalocyte detectionOrdered By: Fabiola Marinelli on 44-81-0260Qdwfldgpfj LM Ql (Bld)SlightChildren'S Hospital For RehabilitationPlatelet adequacy [Presence] in Blood by Light microscopyOrdered By: Fabiola Marinelli on 08-95-0675Snljmcjvv LM Ql (Bld)DecreasedNormWood County HospitalPlatelet mean volume Auto (Bld) [Entitic vol]Ordered By: Fabiola Marinelli on 25-89-0499Gsknjyqc mean volume (Bld) [Entitic vol]8.2 fL6.3-10.7FOhioHealth Arthur G.H. Bing, MD, Cancer CenterPlatelet morphology finding [Identifier] in BloodOrdered By: Fabiola Marinelli on 25-17-8566Emmovuhd morphology finding Nom (Bld)NormalNormal [facility] For RehabilitationPlatelet poor plasma international normalized ratio (INR) by coagulation assay (relatOrdered By: Fabiola Marinelli on 81-27-5174KHN Coag (PPP) [Relative time]1.3 {INR}[facility] For RehabilitationComment on above:INR Therapeutic Range A) Pre- and [...] Fabiola Marinelli on 02-24-2023 Platelets (Bld) [#/Vol]27 10*3/iE557-890ZhsvtetbrChildren'S Hospital For RehabilitationComment on above:Critical Result PLT:27 called to and read back by: [id number] on 02/24/2023 09:24:57 by:[id number].Poikilocytosis [Presence] in Blood by Light microscopyOrdered By: Fabiola Marinelli on 06-02-8617Plnsmikdguhymc LM Ql (Bld)[facility] CenterPolychromasia [Presence] in Blood by Light microscopyOrdered By: Fabiola Marinelli on 92-03-8146Bslxrmhevxbmm LM Ql (Bld)[facility] CenterRBC Auto (Bld) [#/Vol]Ordered By: Fabiola Marinelli on 40-01-4682FBY (Bld) [#/Vol]3.18 10*6/uL3.60-5.00[facility] For RehabilitationRB morphologyOrdered By: Fabiola Marinelli on 28-13-6487QPC morphology finding Nom (Bld)N/AFKettering Health Daytonegmented neutrophils/100 WBC Manual cnt (Bld)Ordered By: Fabiola Marinelli on 80-61-7710Ptfvzvsrn neutrophils/100 WBC (Bld)25 %50-70[facility] For RehabilitationTeardrop cell detectionOrdered By: Fabiola Marinelli on 23-27-0894Khtbxfpfjo LM Ql (Bld)[facility] HospitalWBC Auto (Bld) [#/Vol]Ordered By: Fabiola Marinelli on 96-14-0228VTJ (Bld) [#/Vol]1.2 10*3/uL3.8-11.6FOhioHealth Arthur G.H. Bing, MD, Cancer CenterAlanine aminotransferase [Enzymatic activity/volume] in Serum or PlasmaOrdered By: Fabiola Marinelli on 64-41-4790OFU [Catalytic activity/Vol]17 U/L7-52[facility] For RehabilitationAlbumin [Mass/volume] in Serum or Plasma by Bromocresol green (BCG) dye binding methoOrdered By: Fabiola Marinelli on 16-32-0506Czhyica BCG dye [Mass/Vol]3.6 g/dL3.5-5.7FOhioHealth Arthur G.H. Bing, MD, Cancer CenterAlkaline phosphatase [Enzymatic activity/volume] in Serum or PlasmaOrdered By: Fabiola Marinelli on 07-85-9376YHZ [Catalytic activity/Vol]88 U/U18-546SfbvqadyhChildren'S Hospital For RehabilitationAspartate aminotransferase [Enzymatic activity/volume] in Serum or Plasma Ordered By: Fabiola Marinelli on 14-71-8813GFS [Catalytic activity/Vol]24 U/L13-39 [facility] For RehabilitationBasophils Auto (Bld) [#/Vol]Ordered By: Fabiola Marinelli on 54-85-5468Pmlgmspis (Bld) [#/Vol]N/[facility] Basophils/100 WBC Auto (Bld)Ordered By: Fabiola Marinelli on 32-40-7980Zwjjazszz/100 WBC (Bld)N/[facility] CenterBilirubin.total [Mass/volume] in Serum or PlasmaOrdered By: Fabiola Marinelli on 49-86-0994Wqbdkkqwq [Mass/Vol]1.2 mg/dL 0.3-1.0[facility] For RehabilitationCalcium [Mass/volume] in Serum or Plasma Ordered By: Fabiola Marinelli on 06-89-7004Hiaekcn [Mass/Vol]8.7 mg/dL8.6-10.3FOhioHealth Arthur G.H. Bing, MD, Cancer CenterCarbon dioxide, total [Moles/volume] in Serum or Plasma Ordered By: Fabiola Marinelli on 17-62-6570QQ5 [Moles/Vol]28.9 mmol/L21.0-31.0[facility] RehabilitationChloride [Moles/volume] in Serum or PlasmaOrdered By: Fabiola Marinelli on 53-34-9077Nejumdgh [Moles/Vol]106 mmol/L40-977DuvhvascmChildren'S Hospital For RehabilitationCreatinine [Mass/volume] in Serum or PlasmaOrdered By: Fabiola Marinelli on 20-72-2457Kdusjricew [Mass/Vol]0.45 mg/dL0.60-1.20[facility] For RehabilitationEosinophils Auto (Bld) [#/Vol]Ordered By: Fabiola Marinelli on 02-17-2023 Eosinophils (Bld) [#/Vol]N/AFOhioHealth Arthur G.H. Bing, MD, Cancer CenterEosinophils/100 WBC Auto (Bld)Ordered By: Fabiola Marinelli on 57-98-6826Zhipyovdzeo/100 WBC (Bld)N/A [facility] For RehabilitationEosinophils/100 WBC Manual cnt (Bld)Ordered By: Fabiola Marinelli on 91-32-8719Dbdnltwkxss/100 WBC (Bld)4 %1-3FOhioHealth Arthur G.H. Bing, MD, Cancer CenterErythrocyte distribution width Auto (RBC) [Ratio]Ordered By: Fabiola Marinelli on 01-61-2435Ianbrxkxpuu distribution width (RBC) [Ratio]14.6 %11.9-15.3 [facility] For RehabilitationGlobulin Calc (S) [Mass/Vol]Ordered By: Fabiola Marinelli on 67-07-5375Ilrmbzhl (S) [Mass/Vol]2.1 g/dLChildren'S Hospital For RehabilitationGlucose [Mass/volume] in Serum or PlasmaOrdered By: Fabiola Marinelli on 96-96-9336Mdsjane [Mass/Vol]113 mg/oD51-938TexjrvzjbChildren'S Hospital For Rehabilitation Comment on above:ADA recommended reference rangeRandom Glucose Reference Range is dependent on time and content of last meal. Glucose of more than 200 mg/dL in a nonstressed, ambulatory subject supports the diagnosisof Diabetes Mellitus. Hematocrit Auto (Bld) [Volume fraction]Ordered By: Fabiola Marinelli on 02-17-2023 Hematocrit (Bld) [Volume fraction]33.1 %34.0-46.4FOhioHealth Arthur G.H. Bing, MD, Cancer CenterHemoglobin [Mass/volume] in BloodOrdered By: Fabiola Marinelli on 02-17-2023 Hemoglobin (Bld) [Mass/Vol]11.3 g/dL11.8-15.4FOhioHealth Arthur G.H. Bing, MD, Cancer Center Leukocytes [#/volume] corrected for nucleated erythrocytes in Blood by Automated counOrdered By: Fabiola Marinelli on 68-00-6937BVH corrected for nucl RBC Auto (Bld) [#/Vol]1.7 10*3/uL3.8-11.6FOhioHealth Arthur G.H. Bing, MD, Cancer CenterLymphocytes Auto (Bld) [#/Vol]Ordered By: Fabiola Marinelli on 94-63-1615Qnwspokrptv (Bld) [#/Vol]N/A [facility] For RehabilitationLymphocytes/100 WBC Auto (Bld)Ordered By: Fabiola Marinelli on 47-12-8211Mdsrqftrapj/100 WBC (Bld)N/[facility] Lymphocytes/100 WBC Manual cnt (Bld)Ordered By: Fabiola Marinelli on 02-17-2023 Lymphocytes/100 WBC (Bld)20 %18-42[facility] CenterH Auto (RBC) [Entitic mass]Ordered By: Fabiola Marinelli on 95-59-3018QSC (RBC) [Entitic mass] 33.5 pg24.7-34.3FOhioHealth Arthur G.H. Bing, MD, Cancer CenterMCHC Auto (RBC) [Mass/Vol] Ordered By: Fabiola Marinelli on 41-46-4731XSAH (RBC) [Mass/Vol]34.1 g/dL32.0-35.0 [facility] RehabilitationMCV Auto (RBC) [Entitic vol]Ordered By: Fabiola Marinelli on 48-60-7804TGG (RBC) [Entitic vol]98.4 aJ89-168KqjgqfwejChildren'S Hospital For RehabilitationMonocytes Auto (Bld) [#/Vol]Ordered By: Fabiola Marinelli on 02-17-2023 Monocytes (Bld) [#/Vol]N/[facility] CenterMonocytes/100 WBC Auto (Bld)Ordered By: Fabiola Marinelli on 47-07-6791Vnylykxed/100 WBC (Bld)N/[facility] CenterMonocytes/100 WBC Manual cnt (Bld)Ordered By: Fabiola Marinelli on 48-56-8657Lyyqmecll/100 WBC (Bld)4 %2-11[facility] Neutrophils Auto (Bld) [#/Vol]Ordered By: Fabiola Marinelli on 93-91-3751Xzauoyrvgpx (Bld) [#/Vol]N/[facility] CenterNeutrophils/100 WBC Auto (Bld) Ordered By: Fabiola Marinelli on 28-37-8113Jlvthvuiesi/100 WBC (Bld)[facility]No Panel InformationOrdered By: Fabiola Marinelli on 02-17-2023 Estimated GFR (CKD-EPI)> 60.0 mL/MinChildren'S Hospital For RehabilitationPharmacy Creatinine Clearance (Chem70.06[facility] For RehabilitationNucleated erythrocytes [Presence] in Blood by Automated countOrdered By: Fabiola Marinelli on 40-08-9696Sefmwwavl RBC Auto Ql (Bld)N/[facility] Ovalocyte detectionOrdered By: Fabiola Marinelli on 27-87-6357Mdvymviuac LM Ql (Bld) [facility] HospitalPlatelet adequacy [Presence] in Blood by Light microscopyOrdered By: Fabiola Marinelli on 29-30-3404Embkmjwvw LM Ql (Bld) DecreasedNoLutheran HospitalPlatelet mean volume Auto (Bld) [Entitic vol]Ordered By: Fabiola Marinelli on 18-49-4883Ytnqzlcz mean volume (Bld) [Entitic vol]7.9 fL6.3-10.7FOhioHealth Arthur G.H. Bing, MD, Cancer CenterPlatelet morphology finding [Identifier] in BloodOrdered By: Fabiola Marinelli on 35-23-5557Dtswybyh morphology finding Nom (Bld)NormalNoLutheran Hospital Platelets Auto (Bld) [#/Vol]Ordered By: Fabiola Marinelli on 81-03-6457Lkhbousfu (Bld) [#/Vol]35 10*3/uS819-758UxgfdkconChildren'S Hospital For RehabilitationComment on above: Critical Result PLT:35 called to and read back by: [id number] on 02/17/2023 10:43:02 by:[id number].Poikilocytosis [Presence] in Blood by Light microscopy Ordered By: Fabiola Marinelli on 18-55-6013Gbdprjsygydamh LM Ql (Bld)[facility]'s HospitalPolychromasia [Presence] in Blood by Light microscopy Ordered By: Fabiola Marinelli on 44-61-9137Yuzrwszzqmvxh LM Ql (Bld)[facility] HospitalPotassium [Moles/volume] in Serum or PlasmaOrdered By: Fabiola Marinelli on 47-85-9243Iqvmzdkla [Moles/Vol]3.7 mmol/L3.5-5.1FOhioHealth Arthur G.H. Bing, MD, Cancer CenterProtein [Mass/volume] in Serum or PlasmaOrdered By: Fabiola Marinelli on 71-13-8984Nrlbnls [Mass/Vol]5.7 g/dL6.4-8.9[facility] For RehabilitationRBC Auto (Bld) [#/Vol]Ordered By: Fabiola Marinelli on 03-28-2286BOY (Bld) [#/Vol]3.36 10*6/uL3.60-5.00[facility] For RehabilitationRBC morphologyOrdered By: Fabiola Marinelli on 08-46-9246ZAD morphology finding Nom (Bld)N/AFKettering Health Daytonegmented neutrophils/100 WBC Manual cnt (Bld)Ordered By: Fabiola Marinelli on 28-60-0550Wdaniqijv neutrophils/100 WBC (Bld)66 %50-70Summa Healtherum or plasma albumin/globulin mass ratioOrdered By: Fabiola Marinelli on 98-47-9819Akzxkap/Globulin [Mass ratio]1.7 {ratio}[facility]ma Healtherum or plasma anion gap determinationOrdered By: Fabiola Marinelli on 02-17-2023 Anion gap [Moles/Vol]8.8 mmol/L6.0-15.0Summa Healthodium [Moles/volume] in Serum or PlasmaOrdered By: Fabiola Marinelli on 25-77-4810Euzipr [Moles/Vol]140 mmol/P753-474FxempzyohChildren'S Hospital For RehabilitationUrea nitrogen [Mass/volume] in Serum or PlasmaOrdered By: Fabiola Marinelli on 46-37-5604Zmrb nitrogen [Mass/Vol]13 mg/dL7-25[facility] For RehabilitationWBC Auto (Bld) [#/Vol] Ordered By: Fabiola Marinelli on 81-84-3946QOJ (Bld) [#/Vol]1.7 10*3/uL3.8-11.6FOhioHealth Arthur G.H. Bing, MD, Cancer CenterWBC other/100 WBC Manual cnt (Bld)Ordered By: Fabiola Marinelli on 06-19-3933DBF other/100 WBC (Bld)7 %High0-0[facility] Comment on above:PLASMACYTOID LYMPHSWBC other/100 WBC (Bld)Leukocytes other/100 leukocytes in Blood by Manual countHigh0-0[facility] Anisocytosis LM Ql (Bld)Ordered By: Fabiola Marinelli on 91-79-9317Sfxyoesnjmig Ql (Bld) [facility] HospitalHypochromia LM Ql (Bld)Ordered By: Fabiola Marinelli on 04-97-0451Awrkyakdrhp Ql (Bld)[facility] Hypochromia Ql (Bld)Hypochromia [Presence] in Blood by Light microscopyChildren'S Hospital For RehabilitationTeardrop cell detectionOrdered By: Fabiola Marinelli on 69-50-6425Tqspqbpqpg LM Ql (Bld)[facility] HospitalBilirubin Test strip Ql (U)Ordered By: Ferny Levin on 60-75-2856Irjbkevce Ql (U) Bilirubin.total [Presence] in Urine by Test stripNegHarrison Community HospitalBilirubin Ql (U)NegativeNegHarrison Community Hospital Color Auto (U)Ordered By: Ferny Levin on 85-08-4300Fwwgy (U)YellowPremier Health Upper Valley Medical CenterColor (U)Color of Urine by AutoYelCincinnati Children's Hospital Medical CenterKetones Auto test strip (U) [Mass/Vol]Ordered By: Ferny Levin on 29-52-3671Cqqdlln (U) [Mass/Vol]NegativeNegHarrison Community HospitalKetones (U) [Mass/Vol]Urine ketones measurement by automated test strip (mass/volume)NegativeChildren'S Hospital For RehabilitationNitrite Test strip Ql (U)Ordered By: Ferny Lvein on 25-27-0434Saeubuf Ql (U)Nitrite [Presence] in Urine by Test stripNegHarrison Community Hospital Nitrite Ql (U)NegativeNegHarrison Community HospitalProtein Auto test strip (U) [Mass/Vol]Ordered By: Ferny Levin on 28-65-7070Znqfmyu (U) [Mass/Vol]NegativeNegHarrison Community HospitalProtein (U) [Mass/Vol]Urine protein measurement by automated test strip (mass/volume) [facility] Hospitalpecific gravity Auto test strip (U) [Rel density]Ordered By: Ferny Levin on 80-75-3882Eqdnoyrx gravity (U) [Rel density]1.0051.001-1.030Summa Healthpecific gravity (U) [Rel density]Specific gravity of Urine by Automated test strip1.001-1.030 [facility] RehabilitationUrine clarity by refractometry automatedOrdered By: Ferny Levin on 47-47-7181Izugsen Refractometry automated (U)ClearClear [facility] RehabilitationClarity Refractometry automated (U)Urine clarity by refractometry automatedCleMercy Health St. Joseph Warren HospitalUrine glucose measurement by automated test strip (mass/volume)Ordered By: Ferny Levin on 37-62-6226Dfgluwu Auto test strip (U) [Mass/Vol]Normal mg/dLCleveland Clinic Medina HospitalGlucose Auto test strip (U) [Mass/Vol]Urine glucose measurement by automated test strip (mass/volume)Doctors HospitalUrine hemoglobin detection by automated test stripOrdered By: Ferny Levin on 03-71-0711Rkzhlalori Auto test strip Ql (U)Negative [facility] HospitalHemoglobin Auto test strip Ql (U)Urine hemoglobin detection by automated test stripNegHarrison Community HospitalUrine leukocyte esterase detection by automated test stripOrdered By: Ferny Levin on 19-41-7904Nmvwihcwi esterase Auto test strip Ql (U)Negative [facility] HospitalLeukocyte esterase Auto test strip Ql (U)Urine leukocyte esterase detection by automated test stripNegHarrison Community HospitalUrobilinogen Auto test strip (U) [Mass/Vol]Ordered By: Ferny Levin on 14-62-9397Nqccpukbmhfi (U) [Mass/Vol]Normal mg/dLNoWestern Reserve HospitalUrobilinogen (U) [Mass/Vol]Urine urobilinogen measurement by automated test strip (mass/volume)Doctors HospitalpH Auto test strip (U)Ordered By: Ferny Levin on 02-06-2023 pH (U)6.0 [pH]5.0-9.0[facility] For RehabilitationpH (U)Urine pH measurement by automated test strip5.0-9.0[facility] Metamyelocytes/100 WBC Manual cnt (Bld)Ordered By: Fabiola Marinelli on 02-05-2023 Metamyelocytes/100 WBC (Bld)1 %High0-0[facility] Metamyelocytes/100 WBC (Bld)Metamyelocytes/100 leukocytes in Blood by Manual countHigh0-0[facility] For RehabilitationAnisocytosis LM Ql (Bld)Ordered By: Sherif Ravi on 99-23-8789Xjrprehxrwox Ql (Bld)SlightChildren'S Hospital For RehabilitationBasophils Auto (Bld) [#/Vol]Ordered By: Sherif Ravi on 59-78-3931Ypgssfwxd (Bld) [#/Vol]0.0 10*3/uL0.0-0.2FOhioHealth Arthur G.H. Bing, MD, Cancer CenterBasophils/100 WBC Auto (Bld)Ordered By: Sherif Ravi on 01-29-2023 Basophils/100 WBC (Bld)0.2 %.[facility] For RehabilitationCalcium [Mass/volume] in Serum or PlasmaOrdered By: Sherif Ravi on 01-29-2023 Calcium [Mass/Vol]8.8 mg/dL8.6-10.3FOhioHealth Arthur G.H. Bing, MD, Cancer CenterCarbon dioxide, total [Moles/volume] in Serum or PlasmaOrdered By: Sherif Ravi on 00-36-1073ZQ1 [Moles/Vol]31.2 mmol/L21.0-31.0[facility] RehabilitationChloride [Moles/volume] in Serum or PlasmaOrdered By: Sherif Ravi on 92-68-9117Djcqwowd [Moles/Vol]108 mmol/T07-895BuxcijpxkChildren'S Hospital For RehabilitationCreatinine [Mass/volume] in Serum or PlasmaOrdered By: Sherif Ravi on 68-86-2248Hxkqfukvsp [Mass/Vol]0.37 mg/dL0.60-1.20[facility] For RehabilitationEosinophils Auto (Bld) [#/Vol]Ordered By: Sherif Ravi on 07-16-8131Hjfngfhjloy (Bld) [#/Vol]0.1 10*3/uL0.0-0.45[facility] For RehabilitationEosinophils/100 WBC Auto (Bld)Ordered By: Sherif Ravi on 41-56-4852Btbcmiwunts/100 WBC (Bld)3.9 %.[facility] For RehabilitationErythrocyte distribution width Auto (RBC) [Ratio]Ordered By: Sherif Ravi on 44-48-9591Qxlxilgjujm distribution width (RBC) [Ratio]14.3 % 11.9-15.3FOhioHealth Arthur G.H. Bing, MD, Cancer CenterGlucose [Mass/volume] in Serum or PlasmaOrdered By: Sherif Ravi on 03-30-8715Ezrreet [Mass/Vol]93 mg/dL 70-100[facility] For RehabilitationComment on above:ADA recommended reference rangeRandom Glucose Reference Range is dependent on time and content of last meal. Glucose of more than 200 mg/dL in a nonstressed, ambulatory subject supports the diagnosisof Diabetes Mellitus.Hematocrit Auto (Bld) [Volume fraction]Ordered By: Sherif Ravi on 34-94-1510Dxyufdmrjo (Bld) [Volume fraction]30.2 %34.0-46.4FOhioHealth Arthur G.H. Bing, MD, Cancer CenterHemoglobin [Mass/volume] in BloodOrdered By: Sherif Ravi on 37-06-5741Jqnawxawsk (Bld) [Mass/Vol]10.4 g/dL11.8-15.4FOhioHealth Arthur G.H. Bing, MD, Cancer CenterLeukocytes [#/volume] corrected for nucleated erythrocytes in Blood by Automated coun Ordered By: Sherif Ravi on 83-43-3130QYL corrected for nucl RBC Auto (Bld) [#/Vol]1.6 10*3/uL3.8-11.6FOhioHealth Arthur G.H. Bing, MD, Cancer CenterLymphocytes Auto (Bld) [#/Vol]Ordered By: Sherif Ravi on 93-31-7045Skntbqwptbw (Bld) [#/Vol]0.5 10*3/uL1.00-4.8[facility] For RehabilitationLymphocytes/100 WBC Auto (Bld)Ordered By: Sherif Ravi on 53-56-8864Mfmeflqpzsd/100 WBC (Bld)30.8 %.[facility] CenterH Auto (RBC) [Entitic mass] Ordered By: Sherif Ravi on 49-55-6368QHV (RBC) [Entitic mass]34.4 pg 24.7-34.3FOhioHealth Arthur G.H. Bing, MD, Cancer CenterMCHC Auto (RBC) [Mass/Vol]Ordered By: Sherif Ravi on 25-77-7641ZIYU (RBC) [Mass/Vol]34.4 g/dL32.0-35.0 [facility] For RehabilitationMCV Auto (RBC) [Entitic vol]Ordered By: Sherif Ravi on 26-50-2139GZK (RBC) [Entitic vol]100.0 tQ62-275FzgjfebwaChildren'S Hospital For RehabilitationMonocytes Auto (Bld) [#/Vol]Ordered By: Sherif Ravi on 79-05-8260Nlqjmjdrp (Bld) [#/Vol]0.2 10*3/uL0.0-0.8[facility] RehabilitationMonocytes/100 WBC Auto (Bld)Ordered By: Sherif Ravi on 45-57-8804Rcefpqmqy/100 WBC (Bld)11.4 %.[facility] For RehabilitationNeutrophils Auto (Bld) [#/Vol]Ordered By: Sherif Ravi on 38-92-9180Uqltdacprxu (Bld) [#/Vol]0.8 10*3/uL1.8-7.7FOhioHealth Arthur G.H. Bing, MD, Cancer CenterNeutrophils/100 WBC Auto (Bld)Ordered By: Sherif Ravi on 38-17-4485Youvpgznpzk/100 WBC (Bld)53.7 %.[facility] RehabilitationNo Panel InformationOrdered By: Sherif Ravi on 96-74-3409Xjexqhnxo GFR (CKD-EPI)> 60.0 mL/MinChildren'S Hospital For RehabilitationPharmacy Creatinine Clearance (Chem70.06[facility]> 60.0 mL/MinChildren'S Hospital For Rehabilitation70.06[facility] RehabilitationNucleated erythrocytes [Presence] in Blood by Automated countOrdered By: Sherif Ravi on 69-95-2264Kmrhdualj RBC Auto Ql (Bld)0.5 /100{WBC}0-0.5FOhioHealth Arthur G.H. Bing, MD, Cancer CenterOvalocyte detectionOrdered By: Sherif Ravi on 41-26-7750Dzwxntkbry LM Ql (Bld)[facility] HospitalPlatelet adequacy [Presence] in Blood by Light microscopyOrdered By: Sherif Ravi on 35-50-2811Lkvfgvtiy LM Ql (Bld)DecreasedNoLutheran HospitalPlatelet mean volume Auto (Bld) [Entitic vol]Ordered By: Sherif Ravi on 52-62-9488Yboruuqx mean volume (Bld) [Entitic vol]7.9 fL6.3-10.7 [facility] For RehabilitationPlatelet morphology finding [Identifier] in BloodOrdered By: Sherif Ravi on 45-15-2211Unfliywj morphology finding Nom (Bld)NormalNoLutheran HospitalPlatelets Auto (Bld) [#/Vol]Ordered By: Sherif Ravi on 47-40-2821Rwswrzael (Bld) [#/Vol]25 10*3/tA961-359EccrltfytChildren'S Hospital For RehabilitationComment on above:Critical Result PLT:25 called to and read back by: NOTIFRST on 01/29/2023 07:12:39 by:[place]. Polychromasia [Presence] in Blood by Light microscopyOrdered By: Sherif Ravi on 01-39-2379Qryvadipwhthx LM Ql (Bld)[facility] HospitalPotassium [Moles/volume] in Serum or PlasmaOrdered By: Sherif Ravi on 16-77-0495Doyjddwky [Moles/Vol]3.3 mmol/L3.5-5.1FOhioHealth Arthur G.H. Bing, MD, Cancer CenterRBC Auto (Bld) [#/Vol]Ordered By: Sherif Ravi on 89-84-5551KVQ (Bld) [#/Vol]3.02 10*6/uL3.60-5.00[facility] For RehabilitationRBC morphologyOrdered By: Sherif Ravi on 62-31-4821AAH morphology finding Nom (Bld)N/AFKettering Health Daytonerum or plasma anion gap determinationOrdered By: Sherif Ravi on 61-34-7041Mfikl gap [Moles/Vol] 7.1 mmol/L6.0-15.0Summa Healthodium [Moles/volume] in Serum or PlasmaOrdered By: Sherif Ravi on 88-53-8924Sqjuai [Moles/Vol] 143 mmol/M949-886VnotavqczChildren'S Hospital For RehabilitationTeardrop cell detectionOrdered By: Sherif Ravi on 25-36-5744Ovpctgbhpr LM Ql (Bld)SlightChildren'S Hospital For RehabilitationUrea nitrogen [Mass/volume] in Serum or PlasmaOrdered By: Sherif Ravi on 62-45-6176Utaf nitrogen [Mass/Vol]13 mg/dL7-25[facility] For RehabilitationWBC Auto (Bld) [#/Vol]Ordered By: Sherif Ravi on 55-90-1419FDQ (Bld) [#/Vol]1.6 10*3/uL3.8-11.6FOhioHealth Arthur G.H. Bing, MD, Cancer CenterAutomated erythrocytes count in urine sediment (number/area)Ordered By: Stefani Escobar on 87-28-9095TOA Auto (Urine sed) [#/Area]50-100 [HPF]0-4FOhioHealth Arthur G.H. Bing, MD, Cancer CenterAutomated leukocytes count in urine sediment (number/area)Ordered By: Stefani Escobar on 57-74-6526XIP Auto (Urine sed) [#/Area]Innumerable [HPF]0-4FOhioHealth Arthur G.H. Bing, MD, Cancer CenterBacteria identified Cx Nom (Bld)Ordered By: Sherif Ravi on 30-79-3177Qursfecxg blood cultureStaphylococcus sp coag negChildren'S Hospital For RehabilitationBacteria identified Cx Nom (U)Ordered By: Stefani Escobar on 77-66-0692Afkzz culture routineEscherichia coliChildren'S Hospital For RehabilitationBacterial blood culture Ordered By: Sherif Ravi on 14-41-7661Tdufntwr identified Cx Nom (Bld)NO GROWTH 5 DAYSChildren'S Hospital For RehabilitationBacteria identified Cx Nom (Bld) Staphylococcus sp coag negChildren'S Hospital For RehabilitationBasophils Auto (Bld) [#/Vol]Ordered By: Stefani Escobar on 12-46-9951Ojflzfagk (Bld) [#/Vol]0.0 10*3/uL 0.0-0.2FOhioHealth Arthur G.H. Bing, MD, Cancer CenterBasophils/100 WBC Auto (Bld)Ordered By: Stefani Escobar on [id number]/100 WBC (Bld)0.1 %.Children[facility] For RehabilitationBilirubin Test strip Ql (U)Ordered By: Stefani Escobar on 01-28-2023 Bilirubin Ql (U)NegativeNegativeChildren'S Hospital For RehabilitationCalcium [Mass/volume] in Serum or PlasmaOrdered By: Stefani Escobar on [id number] [Mass/Vol]8.7 mg/dL8.6-10.3FOhioHealth Arthur G.H. Bing, MD, Cancer CenterCarbon dioxide, total [Moles/volume] in Serum or PlasmaOrdered By: Stefani Escobar on 01-28-2023 CO2 [Moles/Vol]28.8 mmol/L21.0-31.0[facility] For RehabilitationChloride [Moles/volume] in Serum or PlasmaOrdered By: Stefani Escobar on 01-38-0468Kvooolux [Moles/Vol]105 mmol/I13-800AbyjhfrgnChildren'S Hospital For RehabilitationColor Auto (U) Ordered By: Stefani Escobar on 54-49-5039Bcmnc (U)Dark yellowYellowChildren'S Hospital For RehabilitationCreatinine [Mass/volume] in Serum or PlasmaOrdered By: Stefani Escobar on 89-61-8473Trxwggbfos [Mass/Vol]0.39 mg/dL0.60-1.20[facility] For RehabilitationEosinophils Auto (Bld) [#/Vol]Ordered By: Stefani Escobar on 89-27-5924Umckrrqcnlt (Bld) [#/Vol]0.1 10*3/uL0.0-0.45[facility] CenterEosinophils/100 WBC Auto (Bld)Ordered By: Stefani Escobar on 37-82-3776Udubowcyadb/100 WBC (Bld)2.4 %.[facility] Erythrocyte distribution width Auto (RBC) [Ratio]Ordered By: Stefani Escobar on 87-64-8480Opgvusmkxli distribution width (RBC) [Ratio]14.7 %11.9-15.3FOhioHealth Arthur G.H. Bing, MD, Cancer CenterGlucose [Mass/volume] in Serum or PlasmaOrdered By: Stefani Escobar on 55-04-1074Anobdyh [Mass/Vol]105 mg/gY46-420AzgozqnxcChildren'S Hospital For RehabilitationComment on above:ADA recommended reference rangeRandom Glucose Reference Range is dependent on time and content of last meal. Glucose of more than 200 mg/dL in a nonstressed, ambulatory subject supports the diagnosisof Diabetes Mellitus.Hematocrit Auto (Bld) [Volume fraction]Ordered By: Stefani Escobar on 84-30-0660Llpyyqhdin (Bld) [Volume fraction]32.2 %34.0-46.4FOhioHealth Arthur G.H. Bing, MD, Cancer CenterHemoglobin [Mass/volume] in BloodOrdered By: Stefani Escobar on 40-42-8357Npkpouvsdw (Bld) [Mass/Vol]11.1 g/dL11.8-15.4FOhioHealth Arthur G.H. Bing, MD, Cancer CenterKetones Auto test strip (U) [Mass/Vol]Ordered By: Stefani Escobar on 62-79-3798Ruakbxu (U) [Mass/Vol]TraceNegativeChildren'S Hospital For RehabilitationLaboratory - Chemistry and Chemistry - challengeOrdered By: Stefani Escobar on 64-42-9721NOJ/1.73 sq M.predicted MDRD (S/P/Bld) [Vol rate/Area] mL/min/{1.73_m2}[facility] For RehabilitationLaboratory - UrinalysisOrdered By: Stefani Escobar on 91-45-0856Cathtqi casts LM Ql (Urine sed)0-8 [LPF]0-8 [facility] For RehabilitationLeukocytes [#/volume] corrected for nucleated erythrocytes in Blood by Automated counOrdered By: Stefani Escobar on 01-28-2023 WBC corrected for nucl RBC Auto (Bld) [#/Vol]3.0 10*3/uL3.8-11.6FOhioHealth Arthur G.H. Bing, MD, Cancer CenterLymphocytes Auto (Bld) [#/Vol]Ordered By: Stefani Escobar on 14-25-7813Djtoiazlizz (Bld) [#/Vol]0.6 10*3/uL1.00-4.8[facility] For RehabilitationLymphocytes/100 WBC Auto (Bld)Ordered By: Stefani Escobar on 08-07-2485Vuoiikclwyl/100 WBC (Bld)20.4 %.[facility] Auto (RBC) [Entitic mass]Ordered By: Stefani Escobar on 62-62-3853OLT (RBC) [Entitic mass]34.2 pg24.7-34.3FWilson HealthHC Auto (RBC) [Mass/Vol]Ordered By: Stefani Escobar on 30-95-4579DIGN (RBC) [Mass/Vol]34.3 g/dL 32.0-35.0[facility] For RehabilitationMCV Auto (RBC) [Entitic vol]Ordered By: Stefani Escobar on 86-27-1697UFO (RBC) [Entitic vol]99.5 nF87-983NemytwzjqChildren'S Hospital For RehabilitationMonocyte distribution width [Entitic volume] in Blood by AutomatedOrdered By: Stefani Escobar on 49-91-2418Bnvnulyu distribution width Auto (Bld) [Entitic vol]19.52 %0.00-20.00[facility] For RehabilitationMonocytes Auto (Bld) [#/Vol]Ordered By: Stefani Escobar on 21-04-7087Jsyylqqig (Bld) [#/Vol] 0.4 10*3/uL0.0-0.8[facility] For RehabilitationMonocytes/100 WBC Auto (Bld) Ordered By: Stefani Escobar on 82-16-8558Kfjifonkj/100 WBC (Bld)12.3 %.[facility] For RehabilitationNeutrophils Auto (Bld) [#/Vol]Ordered By: Stefani Escobar on 52-56-1191Zlrcfveetus (Bld) [#/Vol]1.9 10*3/uL1.8-7.7FOhioHealth Arthur G.H. Bing, MD, Cancer CenterNeutrophils/100 WBC Auto (Bld)Ordered By: Stefani Escobar on 86-59-8014Zhwvsihyjzp/100 WBC (Bld)64.8 %.[facility] Nitrite Test strip Ql (U)Ordered By: Stefani Escobar on 29-52-6277Dchwcma Ql (U) NegativeNegativeChildren'S Hospital For RehabilitationNo Panel InformationOrdered By: Sherif Ravi on 00-68-7249Lddkpjwhk ID (NA Multiplex Assay)[facility] RehabilitationNo Panel InformationOrdered By: Stefani Escobar on 35-59-9969Tjtjhgam Creatinine Clearance (Chem69.42[facility]0-8 [LPF]0-8[facility] For RehabilitationNucleated erythrocytes [Presence] in Blood by Automated countOrdered By: Stefani Escobar on 01-28-2023 Nucleated RBC Auto Ql (Bld)0.4 /100{WBC}0-0.5FOhioHealth Arthur G.H. Bing, MD, Cancer Center Ovalocyte detectionOrdered By: Stefani Escobar on 58-90-1062Ixymwfoivd LM Ql (Bld) [facility] HospitalPlatelet adequacy [Presence] in Blood by Light microscopyOrdered By: Stefani Escobar on 74-16-5317Zkaveksih LM Ql (Bld) DecreasedNoLutheran HospitalPlatelet mean volume Auto (Bld) [Entitic vol]Ordered By: Stefani Escobar on 55-65-8779Ikvojbzo mean volume (Bld) [Entitic vol]9.3 fL6.3-10.7FOhioHealth Arthur G.H. Bing, MD, Cancer CenterPlatelet morphology finding [Identifier] in BloodOrdered By: Stefani Escobar on 52-32-2909Blvnfdud morphology finding Nom (Bld)NormalNormWood County Hospital Platelets Auto (Bld) [#/Vol]Ordered By: Stefani Escobar on 37-07-7345Nryyeynwx (Bld) [#/Vol]35 10*3/rT032-838TyajeiiyqChildren'S Hospital For RehabilitationComment on above: Critical Result PLT:35 called to and read back by: MADHU on 01/28/2023 01:29:15 by:CARMEN.Poikilocytosis [Presence] in Blood by Light microscopyOrdered By: Stefani Escobar on 91-07-9712Yfdmlhztqihjzu LM Ql (Bld)[facility] HospitalPotassium [Moles/volume] in Serum or PlasmaOrdered By: Stefani Escobar on 03-90-9395Aoiguluug [Moles/Vol]3.4 mmol/L3.5-5.1FOhioHealth Arthur G.H. Bing, MD, Cancer CenterProtein Auto test strip (U) [Mass/Vol]Ordered By: Stefani Escobar on 00-81-9618Rgmljzj (U) [Mass/Vol]mg/dLNegativeChildren'S Hospital For Rehabilitation RBC Auto (Bld) [#/Vol]Ordered By: Stefani Escobar on 06-84-5576PLU (Bld) [#/Vol] 3.24 10*6/uL3.60-5.00[facility] For RehabilitationRBC morphologyOrdered By: Stefani Escobar on 39-60-0882YSG morphology finding Nom (Bld)N/AFKettering Health Daytonerum or plasma anion gap determinationOrdered By: Stefani Escobar on 54-93-1346Jxjac gap [Moles/Vol]8.6 mmol/L6.0-15.0Summa Healthodium [Moles/volume] in Serum or PlasmaOrdered By: Stefani Escobar on 39-69-6288Fatbnm [Moles/Vol]139 mmol/P345-545IwvkqfmgoChildren'S Hospital For Rehabilitation Specific gravity Auto test strip (U) [Rel density]Ordered By: Stefani Escobar on 78-57-2331Wwztqhsv gravity (U) [Rel density]1.0231.001-1.030Summa Healthquamous epithelial cells detection in urine sediment by light microscopyOrdered By: Stefani Escobar on 87-43-1895Hrywupcwbs cells.squamous LM Ql (Urine sed)3-4 [HPF]0-2FOhioHealth Arthur G.H. Bing, MD, Cancer CenterTeardrop cell detection Ordered By: Stefani Escobar on 04-37-8235Aqhiefvtif LM Ql (Bld)SlightChildren'S Hospital For RehabilitationUrea nitrogen [Mass/volume] in Serum or PlasmaOrdered By: Stefani Escobar on 74-42-0815Gumw nitrogen [Mass/Vol]12 mg/dL7-25Children[facility] Hospital For RehabilitationUrine bacteria detection by automated methodOrdered By: Stefani Escobar on 67-77-9252Rfaddqmv Auto Ql (U)3+None SeenChildren'S Hospital For RehabilitationUrine clarity by refractometry automatedOrdered By: Stefani Escobar on 97-04-9528Esgvmsg Refractometry automated (U)TurbidCleMercy Health St. Joseph Warren HospitalUrine culture routineOrdered By: Stefani Escobar on 01-28-2023 Bacteria identified Cx Nom (U)Escherichia coliChildren'S Hospital For Rehabilitation Urine glucose measurement by automated test strip (mass/volume)Ordered By: Stefani Escobar on 28-64-2085Hwleoqr Auto test strip (U) [Mass/Vol]Normal mg/dL NormalChildren'S Hospital For RehabilitationUrine hemoglobin detection by automated test stripOrdered By: Stefani Escobar on 84-25-5467Uqjhtavklf Auto test strip Ql (U)3+NegativeChildren'S Hospital For RehabilitationUrine leukocyte esterase detection by automated test stripOrdered By: Stefani Escobar on 03-22-8705Pkonazdxa esterase Auto test strip Ql (U)3+NegativeChildren'S Hospital For RehabilitationUrine sediment crystal identification by light microscopyOrdered By: Stefani Escobar on 08-33-2132Gutqazta LM Nom (Urine sed)None seen [HPF][facility] For RehabilitationUrobilinogen Auto test strip (U) [Mass/Vol]Ordered By: Stefani Escobar on 43-77-8776Ieszndliqtkg (U) [Mass/Vol]Normal mg/dLNormalChildren'S Hospital For RehabilitationWBC Auto (Bld) [#/Vol]Ordered By: Stefani Escobar on 02-91-0610ADO (Bld) [#/Vol]3.0 10*3/uL3.8-11.6FOhioHealth Arthur G.H. Bing, MD, Cancer CenterpH Auto test strip (U)Ordered By: Stefani Escobar on 16-09-4544uS (U)5.5 [pH]5.0-9.0[facility] For RehabilitationAlanine aminotransferase [Enzymatic activity/volume] in Serum or PlasmaOrdered By: Fabiola Marinelli on 47-97-9150OQR [Catalytic activity/Vol]19 U/L7-52Children[facility] Hospital For RehabilitationAlbumin [Mass/volume] in Serum or Plasma by Bromocresol green (BCG) dye binding methoOrdered By: Fabiola Marinelli on 01-22-2023 Albumin BCG dye [Mass/Vol]3.5 g/dL3.5-5.7FOhioHealth Arthur G.H. Bing, MD, Cancer Center Alkaline phosphatase [Enzymatic activity/volume] in Serum or PlasmaOrdered By: Fabiola Marinelli on 59-59-0466KHU [Catalytic activity/Vol]101 U/W70-129CkqyqaczxChildren'S Hospital For RehabilitationAnisocytosis LM Ql (Bld)Ordered By: Fabiola Marinelli on 67-68-2226Stwijwdqwlxn Ql (Bld)SlightChildren'S Hospital For RehabilitationAspartate aminotransferase [Enzymatic activity/volume] in Serum or PlasmaOrdered By: Fabiola Marinelli on 64-97-9505DOT [Catalytic activity/Vol]24 U/D46-32NvxkyawedChildren'S Hospital For RehabilitationBasophils Auto (Bld) [#/Vol]Ordered By: Fabiola Marinelli on 01-22-2023 Basophils (Bld) [#/Vol]0.0 10*3/uL0.0-0.2FOhioHealth Arthur G.H. Bing, MD, Cancer Center Basophils/100 WBC Auto (Bld)Ordered By: Fabiola Marinelli on 22-56-0881Frululkoz/100 WBC (Bld)0.1 %.[facility] For RehabilitationBilirubin.total [Mass/volume] in Serum or PlasmaOrdered By: Fabiola Marinelli on 42-27-2213Jpsvdccbm [Mass/Vol]1.2 mg/dL 0.3-1.0[facility] For RehabilitationCalcium [Mass/volume] in Serum or Plasma Ordered By: Fabiola Marinelli on 58-04-8918Nxdbnxj [Mass/Vol]8.7 mg/dL8.6-10.3FOhioHealth Arthur G.H. Bing, MD, Cancer CenterCarbon dioxide, total [Moles/volume] in Serum or Plasma Ordered By: Fabiola Marinelli on 28-50-7513WW2 [Moles/Vol]29.9 mmol/L21.0-31.0[facility] For RehabilitationChloride [Moles/volume] in Serum or PlasmaOrdered By: Fabiola Marinelli on 39-75-7714Xupxkvpt [Moles/Vol]106 mmol/F96-119RlwgrafgqChildren'S Hospital For RehabilitationCreatinine [Mass/volume] in Serum or PlasmaOrdered By: Fabiola Marinelli on 32-07-8500Tcyplzhbru [Mass/Vol]0.42 mg/dL0.60-1.20[facility] For RehabilitationEosinophils Auto (Bld) [#/Vol]Ordered By: Fabiola Marinelli on 01-22-2023 Eosinophils (Bld) [#/Vol]0.1 10*3/uL0.0-0.45[facility] Eosinophils/100 WBC Auto (Bld)Ordered By: Fabiola Marinelli on 04-77-7803Rudiryxjzyf/100 WBC (Bld)3.6 %.[facility] For RehabilitationErythrocyte distribution width Auto (RBC) [Ratio]Ordered By: Fabiola Marinelli on 97-61-4560Hkidwvaesvh distribution width (RBC) [Ratio]15.4 %11.9-15.3FOhioHealth Arthur G.H. Bing, MD, Cancer CenterGlobulin Calc (S) [Mass/Vol]Ordered By: Fabiola Marinelli on 86-62-0831Qysayggf (S) [Mass/Vol]1.6 g/dLChildren'S Hospital For RehabilitationGlucose [Mass/volume] in Serum or Plasma Ordered By: Fabiola Marinelli on 78-40-3837Drywfhr [Mass/Vol]149 mg/qG77-753PxqckyorkChildren'S Hospital For RehabilitationComment on above:ADA recommended reference rangeRandom Glucose Reference Range is dependent on time and content of last meal. Glucose of more than 200 mg/dL in a nonstressed, ambulatory subject supports the diagnosisof Diabetes Mellitus.Hematocrit Auto (Bld) [Volume fraction]Ordered By: Fabiola Marinelli on 09-71-9076Daxyusoskb (Bld) [Volume fraction]31.9 %34.0-46.4 [facility] For RehabilitationHemoglobin [Mass/volume] in BloodOrdered By: Fabiola Marinelli on 77-78-8096Gjrucxzxja (Bld) [Mass/Vol]10.8 g/dL11.8-15.4FOhioHealth Arthur G.H. Bing, MD, Cancer CenterLaboratory - Chemistry and Chemistry - challengeOrdered By: Fabiola Marinelli on 26-97-6083UIL/1.73 sq M.predicted MDRD (S/P/Bld) [Vol rate/Area]mL/min/{1.73_m2}[facility] For RehabilitationLeukocytes [#/volume] corrected for nucleated erythrocytes in Blood by Automated counOrdered By: Fabiola Marinelli on 36-02-0928QLP corrected for nucl RBC Auto (Bld) [#/Vol]1.8 10*3/uL 3.8-11.6FOhioHealth Arthur G.H. Bing, MD, Cancer CenterLymphocytes Auto (Bld) [#/Vol]Ordered By: Fabiola Marinelli on 00-97-6943Gprnlnzjokh (Bld) [#/Vol]0.4 10*3/uL1.00-4.8[facility] For RehabilitationLymphocytes/100 WBC Auto (Bld)Ordered By: Fabiola Marinelli on 01-08-0847Ftkqtxqnlnq/100 WBC (Bld)24.6 %.[facility] CenterH Auto (RBC) [Entitic mass]Ordered By: Fabiola Marinelli on 59-27-2922IZD (RBC) [Entitic mass]34.2 pg24.7-34.3FOhioHealth Arthur G.H. Bing, MD, Cancer CenterMCHC Auto (RBC) [Mass/Vol] Ordered By: Fabiola Marinelli on 66-64-7308ZPCT (RBC) [Mass/Vol]33.8 g/dL32.0-35.0 [facility] For RehabilitationMCV Auto (RBC) [Entitic vol]Ordered By: Fabiola Marinelli on 12-67-1571UOD (RBC) [Entitic vol]101.2 mZ47-722GziniywulChildren'S Hospital For RehabilitationMacrocytes LM Ql (Bld)Ordered By: Fabiola Marinelli on 01-22-2023 Macrocytes Ql (Bld)SlightChildren'S Hospital For RehabilitationMacrocytes Ql (Bld) Macrocytes [Presence] in Blood by Light microscopyChildren'S Hospital For RehabilitationMonocytes Auto (Bld) [#/Vol]Ordered By: Fabiola Marinelli on 22-75-3660Zvjcxvwvr (Bld) [#/Vol]0.2 10*3/uL0.0-0.8[facility] For RehabilitationMonocytes/100 WBC Auto (Bld)Ordered By: Fabiola Marinelli on 39-50-5839Vfjwmuxra/100 WBC (Bld)12.3 %. [facility] For RehabilitationNeutrophils Auto (Bld) [#/Vol]Ordered By: Fabiola Marinelli on 00-11-8115Nrwwtjgdeys (Bld) [#/Vol]1.1 10*3/uL1.8-7.7FOhioHealth Arthur G.H. Bing, MD, Cancer CenterNeutrophils/100 WBC Auto (Bld)Ordered By: Fabiola Marinelli on 01-22-2023 Neutrophils/100 WBC (Bld)59.4 %.[facility] For RehabilitationNo Panel InformationOrdered By: Fabiola Marinelli on 33-76-2499Fpyvijjf Creatinine Clearance (Chem70.99[facility] RehabilitationNucleated erythrocytes [Presence] in Blood by Automated countOrdered By: Fabiola Marinelli on 70-23-1754Kqvkjadcd RBC Auto Ql (Bld)0.1 /100{WBC}0-0.5FOhioHealth Arthur G.H. Bing, MD, Cancer CenterOvalocyte detection Ordered By: Fabiola Marinelli on 86-12-6950Qylvagcdog LM Ql (Bld)[facility]'s HospitalPlatelet adequacy [Presence] in Blood by Light microscopy Ordered By: Fabiola Marinelli on 76-94-2207Vcgruzenq LM Ql (Bld)DecreasedNormalChildren'S Hospital For RehabilitationPlatelet mean volume Auto (Bld) [Entitic vol]Ordered By: Fabiola Marinelli on 15-57-3760Eoyranpo mean volume (Bld) [Entitic vol]8.5 fL6.3-10.7 [facility] For RehabilitationPlatest. joseph regional medical center morphology finding [Identifier] in BloodOrdered By: Fabiola Marinelli on 69-05-1770Cqfobyqh morphology finding Nom (Bld)N/A [facility] For RehabilitationPlatelets Auto (Bld) [#/Vol]Ordered By: Fabiola Marinelli on 07-47-9770Uerbdslvq (Bld) [#/Vol]31 10*3/mQ852-634ChlikknrbChildren'S Hospital For RehabilitationComment on above:Critical Result PLT:31 called to and read back by: [id number] on 01/22/2023 11:37:11 by:[id number].Platelets Large [Presence] in Blood by Light microscopyOrdered By: Fabiola Marinelli on 06-87-6913Cazzciecj Large LM Ql (Bld)[facility]'s HospitalPoikilocytosis [Presence] in Blood by Light microscopyOrdered By: Fabiola Marinelli on 14-33-0902Qljwjuxmvqnost LM Ql (Bld)[facility] HospitalPotassium [Moles/volume] in Serum or PlasmaOrdered By: Fabiola Marinelli on 39-84-2383Tuxteahit [Moles/Vol]3.7 mmol/L 3.5-5.1FOhioHealth Arthur G.H. Bing, MD, Cancer CenterProtein [Mass/volume] in Serum or Plasma Ordered By: Fabiola Marinelli on 86-18-5450Oyaeimr [Mass/Vol]5.1 g/dL6.4-8.9[facility] For RehabilitationRBC Auto (Bld) [#/Vol]Ordered By: Fabiola Marinelli on 01-22-2023 RBC (Bld) [#/Vol]3.16 10*6/uL3.60-5.00[facility] For RehabilitationRBC morphologyOrdered By: Fabiola Marinelli on 39-77-8319LKM morphology finding Nom (Bld)N/A [facility]ma Healtherum or plasma albumin/globulin mass ratio Ordered By: Fabiola Marinelli on 73-14-8616Iggalwq/Globulin [Mass ratio]2.2 {ratio} [facility] Healtherum or plasma anion gap determinationOrdered By: Fabiola Marinelli on 52-69-0855Vsxod gap [Moles/Vol]8.8 mmol/L6.0-15.0Summa Healthodium [Moles/volume] in Serum or PlasmaOrdered By: Fabiola Marinelli on 66-09-7653Uaobdx [Moles/Vol]141 mmol/A229-629AmaqypyhbChildren'S Hospital For RehabilitationTeardrop cell detectionOrdered By: Fabiola Marinelli on 88-30-3037Mlqpuoakml LM Ql (Bld)SlightChildren'S Hospital For RehabilitationUrea nitrogen [Mass/volume] in Serum or PlasmaOrdered By: Fabiola Marinelli on 27-86-7938Bhfm nitrogen [Mass/Vol]13 mg/dL7-25[facility] For RehabilitationWBC Auto (Bld) [#/Vol]Ordered By: Fabiola Marinelli on 54-98-4756LBK (Bld) [#/Vol]1.8 10*3/uL3.8-11.6FOhioHealth Arthur G.H. Bing, MD, Cancer CenterAlanine aminotransferase [Enzymatic activity/volume] in Serum or PlasmaOrdered By: Fabiola Marinelli on 93-53-2090RFV [Catalytic activity/Vol]23 U/L7-52 [facility] RehabilitationAlbumin [Mass/volume] in Serum or Plasma by Bromocresol green (BCG) dye binding methoOrdered By: Fabiola Marinelli on 01-08-2023 Albumin BCG dye [Mass/Vol]3.5 g/dL3.5-5.7FOhioHealth Arthur G.H. [facility], MD, Cancer Center Alkaline phosphatase [Enzymatic activity/volume] in Serum or PlasmaOrdered By: Fabiola Marinelli on 14-19-4590EPL [Catalytic activity/Vol]92 U/R80-378XrwzbtrbpChildren'S Hospital For RehabilitationAnisocytosis LM Ql (Bld)Ordered By: Fabiola Marinelli on 82-12-7187Dbklywoqmdnj Ql (Bld)SlightChildren'S Hospital For RehabilitationAspartate aminotransferase [Enzymatic activity/volume] in Serum or PlasmaOrdered By: Fabiola Marinelli on 59-87-5869PVS [Catalytic activity/Vol]30 U/G42-85LvvqxjpnsChildren'S Hospital For RehabilitationBasophils Auto (Bld) [#/Vol]Ordered By: Fabiola Marinelli on 01-08-2023 Basophils (Bld) [#/Vol]0.0 10*3/uL0.0-0.2FOhioHealth Arthur G.H. [facility], [facility], Cancer Center Basophils/100 WBC Auto (Bld)Ordered By: Fabiola Marinelli on 78-58-9437Xdtvjjmdj/100 WBC (Bld)0.2 %.[facility] For RehabilitationBilirubin.total [Mass/volume] in Serum or PlasmaOrdered By: Fabiola Marinelli on 11-90-3628Omkjujaea [Mass/Vol]0.9 mg/dL 0.3-1.0[facility] For RehabilitationCalcium [Mass/volume] in Serum or Plasma Ordered By: Fabiola Marinelli on 81-05-6710Hzheyon [Mass/Vol]9.2 mg/dL8.6-10.3FOhioHealth Arthur G.H. Bing, MD, Cancer CenterCarbon dioxide, total [Moles/volume] in Serum or Plasma Ordered By: Fabiola Marinelli on 91-96-3952KA7 [Moles/Vol]29.9 mmol/L21.0-31.0[facility] RehabilitationChloride [Moles/volume] in Serum or PlasmaOrdered By: Fabiola Marinelli on 11-66-4996Wslbhrki [Moles/Vol]106 mmol/L50-908HtwrocaitChildren'S Hospital For RehabilitationCreatinine [Mass/volume] in Serum or PlasmaOrdered By: Fabiola Marinelli on 99-52-0350Wnsglpdshu [Mass/Vol]0.44 mg/dL0.60-1.20[facility] For RehabilitationEosinophils Auto (Bld) [#/Vol]Ordered By: Fabiola Marinelli on 01-08-2023 Eosinophils (Bld) [#/Vol]0.1 10*3/uL0.0-0.45[facility] Eosinophils/100 WBC Auto (Bld)Ordered By: Fabiola Marinelli on 89-23-2728Hnwyvofkvty/100 WBC (Bld)3.6 %.[facility] For RehabilitationErythrocyte distribution width Auto (RBC) [Ratio]Ordered By: Fabiola Marinelli on 70-39-9146Hihrhswcqyk distribution width (RBC) [Ratio]15.8 %11.9-15.3FOhioHealth Arthur G.H. Bing, MD, Cancer CenterGlobulin Calc (S) [Mass/Vol]Ordered By: Fabiola Marinelli on 84-22-0122Mwiikqmp (S) [Mass/Vol]1.7 g/dLChildren'S Hospital For RehabilitationGlucose [Mass/volume] in Serum or Plasma Ordered By: Fabiola Marinelli on 17-77-4765Mvhujwv [Mass/Vol]114 mg/tG13-471FknbljmfqChildren'S Hospital For RehabilitationHematocrit Auto (Bld) [Volume fraction]Ordered By: Fabiola Marinelli on 01-06-0075Uijwciepqn (Bld) [Volume fraction]30.8 %34.0-46.4FOhioHealth Arthur G.H. Bing, MD, Cancer CenterHemoglobin [Mass/volume] in BloodOrdered By: Fabiola Marinelli on 42-87-9774Rooaaibcjl (Bld) [Mass/Vol]10.7 g/dL11.8-15.4FOhioHealth Arthur G.H. Bing, MD, Cancer CenterIFE PATH REVIEWon 78-23-2651JUEZ REVIEW-IFEA.KINEssentia HealthComment on above:Result Comment: By her/his signature above, the Pathologist listed as making the final interpretation certifies that she/he has personally reviewed this case. Performed By: #### PR34 #### [facility] [address] [place], [place] [address]Ddivustlvf [#/volume] corrected for nucleated erythrocytes in Blood by Automated counOrdered By: Fabiola Marinelli on 36-95-5026KBD corrected for nucl RBC Auto (Bld) [#/Vol]1.7 10*3/uL3.8-11.6FOhioHealth Arthur G.H. [facility], MD, Cancer Center Lymphocytes Auto (Bld) [#/Vol]Ordered By: Fabiola Marinelli on 24-34-5227Bcyhttpyffk (Bld) [#/Vol]0.5 10*3/uL1.00-4.8[facility] For RehabilitationLymphocytes/100 WBC Auto (Bld)Ordered By: Fabiola Marinelli on 18-56-0716Znzzgxszkgq/100 WBC (Bld)29.7 %.[facility] CenterH Auto (RBC) [Entitic mass]Ordered By: Fabiola Marinelli on 23-55-5479BZL (RBC) [Entitic mass]35.0 pg24.7-34.3FOhioHealth Arthur G.H. Bing, MD, Cancer CenterMCHC Auto (RBC) [Mass/Vol]Ordered By: Fabiola Marinelli on 35-51-0663OHQS (RBC) [Mass/Vol]34.7 g/dL32.0-35.0[facility] For RehabilitationMCV Auto (RBC) [Entitic vol]Ordered By: Fabiola Marinelli on 21-32-0606VON (RBC) [Entitic vol] 100.8 oH32-726SycqerxmgChildren'S Hospital For RehabilitationMacrocytes LM Ql (Bld)Ordered By: Fabiola Marinelli on 32-82-8423Mlcrznkjzg Ql (Bld)SlightChildren'S Hospital For RehabilitationMonocytes Auto (Bld) [#/Vol]Ordered By: Fabiola Marinelli on 94-55-8925Vcwzqjfxj (Bld) [#/Vol]0.2 10*3/uL0.0-0.8[facility] For RehabilitationMonocytes/100 WBC Auto (Bld)Ordered By: Fabiola Marinelli on 92-65-7549Ozbxysoeu/100 WBC (Bld)14.0 %. [facility] For RehabilitationNeutrophils Auto (Bld) [#/Vol]Ordered By: Fabiola Marinelli on 43-09-4144Dexjkhruvhy (Bld) [#/Vol]0.9 10*3/uL1.8-7.7FOhioHealth Arthur G.H. Bing, MD, Cancer CenterNeutrophils/100 WBC Auto (Bld)Ordered By: Fabiola Marinelli on 01-08-2023 Neutrophils/100 WBC (Bld)52.5 %.[facility] For RehabilitationNo Panel InformationOrdered By: Fabiola Marinelli on 01-08-2023> 60.0[facility]70.94[facility] For RehabilitationNucleated erythrocytes [Presence] in Blood by Automated countOrdered By: Fabiola Marinelli on 72-37-3603Abvjquolj RBC Auto Ql (Bld)0.1 /100{WBC}0-0.5FOhioHealth Arthur G.H. Bing, MD, Cancer CenterOvalocyte detection Ordered By: Fabiola Marinelli on 68-88-2923Wzadjzewcs LM Ql (Bld)SlightChildren'S Hospital For RehabilitationPROTEIN ELECTROPHORESIS + IMMUNOFIXATION, SERUMon [id number] INTERPNORMALMille Lacs Health System Onamia HospitalComment on above:Result Comment: No monoclonal proteins detected by immunofixation. The monoclonal IgG kappa at 0.1 g/dL detected on 11/21/21 is no longer discerned.Performed By: #### IFE3 #### [facility] [address] [place], [place] [address]AWEKJLMBGTHLOJVOYJDZVTLmroirRQM Health [facility] Comment on above:Result Comment: Decrease in polyclonal gamma globulins. Performed By: #### IFE3 #### [facility] [address] [place], [place] [address]Bnoztmow adequacy [Presence] in Blood by Light microscopy Ordered By: Fabiola Marinelli on [id number] LM Ql (Bld)DecreasedNormWood County HospitalPlatelet mean volume Auto (Bld) [Entitic vol]Ordered By: Fabiola Marinelli on 62-44-1633Xfsifbfb mean volume (Bld) [Entitic vol]10.4 fL6.3-10.7 [facility] For RehabilitationPlatelet morphology finding [Identifier] in BloodOrdered By: Fabiola Marinelli on 20-73-8662Fatnmjzn morphology finding Nom (Bld) NormalNoLutheran HospitalPlatelets Auto (Bld) [#/Vol]Ordered By: Fabiola Marinelli on 86-00-4594Gocsvbgoo (Bld) [#/Vol]68 10*3/eK643-885XjxjmpxjlChildren'S Hospital For RehabilitationPotassium [Moles/volume] in Serum or PlasmaOrdered By: Fabiola Marinelli on 75-82-0376Aesjfubab [Moles/Vol]4.1 mmol/L3.5-5.1FOhioHealth Arthur G.H. Bing, MD, Cancer CenterProtein [Mass/volume] in Serum or PlasmaOrdered By: Fabiola Marinelli on 45-66-3316Irwozoy [Mass/Vol]5.2 g/dL6.4-8.9[facility] Hospital For RehabilitationRB Auto (Bld) [#/Vol]Ordered By: Fabiola Marinelli on 04-20-0568VXP (Bld) [#/Vol]3.06 10*6/uL3.60-5.00[facility] For RehabilitationRB morphologyOrdered By: Fabiola Marinelli on 48-30-1352HTM morphology finding Nom (Bld)N/AFKettering Health DaytonPE PATH REVIEWon 73-52-8619QWBO REVIEW-LITTLEEssentia HealthComment on above:Result Comment: By her/his signature above, the Pathologist listed as making the final interpretation certifies that she/he has personally reviewed this case. Performed By: #### CMP #### [facility] [address] [place], [place] [address]Hqfmy or plasma albumin/globulin mass ratioOrdered By: Fabiola Marinelli on 29-12-5962Flqzcnt/Globulin [Mass ratio]2.1 {ratio}Summa Healtherum or plasma anion gap determinationOrdered By: Fabiola Marinelli on 34-41-4387Zmyxp gap [Moles/Vol]8.2 mmol/L6.0-15.0Summa Healthodium [Moles/volume] in Serum or PlasmaOrdered By: Fabiola Marinelli on 96-63-1438Aexaey [Moles/Vol]140 mmol/H642-138JctkvturkChildren'S Hospital For Rehabilitation Teardrop cell detectionOrdered By: Fabiola Marinelli on 57-82-7818Pkdxmfahtq LM Ql (Bld) SlightChildren'S Hospital For RehabilitationUrea nitrogen [Mass/volume] in Serum or PlasmaOrdered By: Fabiola Marinelli on 26-85-6143Vpud nitrogen [Mass/Vol]13 mg/dL7-25 [facility] For RehabilitationWBC Auto (Bld) [#/Vol]Ordered By: Fabiola Marinelli on 49-62-2954UDI (Bld) [#/Vol]1.7 10*3/uL3.8-11.6FOhioHealth Arthur G.H. Bing, MD, Cancer Center IMMUNOGLOBULINS (G,A,M)on 60-31-9652LzJ [Mass/Vol]21 mg/dLLow70 - 400JFK Johnson Rehabilitation InstituteComment on above:Result Comment: MONOCLONAL PROTEINS MAY CAUSE FALSELY LOW RESULTS IN THIS ASSAY. SERUM PROTEIN ELECTROPHORESIS SHOULD BE DONE THE FIRST TEST TO EVALUATE MONOCLONAL GAMMOPATHY.Performed By: #### IGS #### [facility] [address] [place], [place] [address]BrP [Mass/Vol]10 mg/dLLow40 - 230[facility] Comment on above:Result Comment: MONOCLONAL PROTEINS MAY CAUSE FALSELY LOW RESULTS IN THIS ASSAY. SERUM PROTEIN ELECTROPHORESIS SHOULD BE DONE THE FIRST TEST TO EVALUATE MONOCLONAL GAMMOPATHY.Performed By: #### IGS #### [facility] [address] [place], [place] [address]RjW [Mass/Vol]360 mg/vBUqf691 - 1600JFK Johnson Rehabilitation InstituteComment on above:Result Comment: MONOCLONAL PROTEINS MAY CAUSE FALSELY LOW RESULTS IN THIS ASSAY. SERUM PROTEIN ELECTROPHORESIS SHOULD BE DONE THE FIRST TEST TO EVALUATE MONOCLONAL GAMMOPATHY.Performed By: #### IGS #### [facility] [address] [place], [place] [address]OVEAV/LAMBDA FREE LIGHT CHAIN,Son 89-53-8124NZDU KAPPA LIGHT CHAINS,S0.55 mg/dLNormal0.33 - 1.94JFK Johnson Rehabilitation InstituteComment on above: Performed By: #### KALAS #### [facility] [address] [place], [place] [address]ZQWW KAPPA/LAMBDA RATIO,S0.10Low0.26 - 1.65J[facility] Johnson Rehabilitation InstituteComment on above:Result Comment: Undetected antigen excess is [...] the testing laboratory.Performed By: #### KALAS #### [facility] [address] [place], [place] [address]MJFM LAMBDA LIGHT CHAIN,S5.65 mg/dLHigh0.57 - 2.63JFK Johnson Rehabilitation InstituteComment on above:Performed By: #### KALAS #### [facility] [address] [place], [place] [address]EXUIUSD ELECTROPHORESIS + IMMUNOFIXATION, SERUMon 01-02-2023 Albumin [Mass/Vol]3.5 g/dLNormal3.4 - 5.0JFK Johnson Rehabilitation InstituteComment on above:Performed By: #### IFE3 #### [facility] [address] [place], [place] [address]HAJOU 1 GLOBULIN0.3 g/dLNormal0.2 - 0.6JFK Johnson Rehabilitation InstituteComment on above:Performed By: #### IFE3 #### [facility] [address] [place], [place] [address]EVHOL 2 GLOBULIN0.7 g/dLNormal0.4 - 1.1J[facility] Johnson Rehabilitation InstituteComment on above:Performed By: #### IFE3 #### [facility] [address] [place], [place] [address]PGNL GLOBULIN0.6 g/dLNormal0.5 - 1.2J[facility] Johnson Rehabilitation InstituteComment on above:Performed By: #### IFE3 #### [facility] [address] [place], [place] [address]BZNRH GLOBULIN0.3 g/dLLow0.5 - 1.4[facility] Comment on above:Performed By: #### IFE3 #### [facility] [address] [place], [place] [address]LFY AND DIFFERENTIALon 01-01-2023% AUTOMATED IMMATURE GRAN0.0 %Normal0.0 - 0.9J[facility] Johnson Rehabilitation InstituteComment on above:Result Comment: Immature Granulocyte Count (IG) includes promyelocytes, myelocytes and metamyelocytes but does not include bands. Percent differential counts (%) should be interpreted in the context of the absolute cell counts (cells/L).Performed By: #### CBCDF #### [facility] [address] [place], [place] [address]Irggfjaufgn (Bld) [#/Vol]0.05 10*3/uLNormal0.00 - 0.70JFK Johnson Rehabilitation InstituteComment on above:Result Comment: Automated WBC differential has been confirmed by manual smear.Performed By: #### CBCDF #### [facility] [address] [place], [place] [address]Cylljwxbzlm/100 WBC (Bld)2.8 %Normal0.0 - 6.0JFK Johnson Rehabilitation InstituteComment on above:Performed By: #### CBCDF #### [facility] [address] [place], [place] [address]Copgcderymn (Bld) [#/Vol]0.69 10*3/uLLow1.20 - 4.80J[facility] Johnson Rehabilitation InstituteComment on above:Performed By: #### CBCDF #### [facility] [address] [place], [place] [address]Ghdtyiszwsk/100 WBC (Bld)38.1 %Kxxuvy56.0 - 44.0J[facility] Johnson Rehabilitation InstituteComment on above:Performed By: #### CBCDF #### [facility] [address] [place], [place] [address]Onlrmyllk (Bld) [#/Vol]0.30 10*3/uLNormal0.10 - 1.00J[facility] Rehabilitation InstituteComment on above:Performed By: #### CBCDF #### [facility] [address] [place], [place] [address]Huzcwoyzr/100 WBC (Bld)16.6 %Normal2.0 - 10.0J[facility] Johnson Rehabilitation InstituteComment on above:Performed By: #### CBCDF #### [facility] [address] [place], [place] [address]Xnkamydsntn (Bld) [#/Vol]0.77 10*3/uLLow1.20 - 7.70J[facility] Johnson Rehabilitation InstituteComment on above:Performed By: #### CBCDF #### [facility] [address] [place], [place] [address]Qvwnvltgimw/100 WBC (Bld)42.5 %Keprph83.0 - 80.0J[facility] Johnson Rehabilitation InstituteComment on above:Performed By: #### CBCDF #### [facility] [address] [place], [place] [address]Unbnyvxuonr distribution width (RBC) [Ratio]14.8 %High11.5 - 14.5JFK Johnson Rehabilitation InstituteComment on above:Performed By: #### CBCDF #### [facility] [address] [place], [place] [address]Rnctvjwbbx (Bld) [Volume fraction]31.9 %Low36.0 - 46.0J[facility] Johnson Rehabilitation InstituteComment on above:Performed By: #### CBCDF #### [facility] [address] [place], [place] [address]Uycqizvqtx (Bld) [Mass/Vol]10.8 g/dLLow12.0 - 16.0J[facility] Rehabilitation InstituteComment on above:Performed By: #### CBCDF #### [facility] [address] [place], [place] [address]OVOK (RBC) [Mass/Vol]33.9 g/vBPwaurt29.0 - 36.0J[facility] Rehabilitation InstituteComment on above:Performed By: #### CBCDF #### [facility] [address] [place], [place] [address]ZCO (RBC) [Entitic vol]102 zVLlpa80 - 100J[facility] Johnson Rehabilitation InstituteComment on above:Performed By: #### CBCDF #### [facility] [address] [place], [place] [address]Rokbkrqpc (Bld) [#/Vol]36 10*3/tOFay069 - 450J[facility] Johnson Rehabilitation InstituteComment on above:Performed By: #### CBCDF #### [facility] [address] [place], [place] [address]EZA7.14 x10E12/LLow4.00 - 5.20[facility] Comment on above:Performed By: #### CBCDF #### [facility] [address] [place], [place] [address]YWR (Bld) [#/Vol]1.8 10*3/uLLow4.4 - 11.3J[facility] Rehabilitation InstituteComment on above:Performed By: #### CBCDF #### [facility] [address] [place], [place] [address]SDLHHDAPTCGPP PANELon 57-01-3295Zxstosg [Mass/Vol]3.6 g/dL Normal3.4 - 5.0J[facility] Rehabilitation InstituteComment on above:Performed By: #### CMP #### [facility] [address] [place], [place] [address]ZLO [Catalytic activity/Vol]95 U/PKldtqe60 - 136J[facility] Johnson Rehabilitation InstituteComment on above:Performed By: #### CMP #### [facility] [address] [place], [place] [address]OSY [Catalytic activity/Vol]22 U/LNormal7 - 45J[facility] Johnson Rehabilitation InstituteComment on above:Result Comment: Patients treated with Sulfasalazine may generate falsely decreased results for ALT.Performed By: #### CMP #### [facility] [address] [place], [place] [address]Modwc gap [Moles/Vol]12 mmol/SWxowll04 - 20J[facility] Rehabilitation InstituteComment on above:Performed By: #### CMP #### [facility] [address] [place], [place] [address]RHI [Catalytic activity/Vol]27 U/LNormal9 - 39J[facility] Rehabilitation InstituteComment on above:Performed By: #### CMP #### [facility] [address] [place], [place] [address]Joyislzxp [Mass/Vol]1.0 mg/dLNormal0.0 - 1.2J[facility] Rehabilitation InstituteComment on above:Performed By: #### CMP #### [facility] [address] [place], [place] [address]Kfifknd [Mass/Vol]9.4 mg/dLNormal8.6 - 10.6J[facility] Rehabilitation InstituteComment on above:Performed By: #### CMP #### [facility] [address] [place], [place] [address]Eonnlwhn [Moles/Vol]106 mmol/TVirnuo68 - 107J[facility] Johnson Rehabilitation InstituteComment on above:Performed By: #### CMP #### [facility] [address] [place], [place] [address]Ozwrjszqcq [Mass/Vol]0.37 mg/dLLow0.50 - 1.05J[facility] Rehabilitation InstituteComment on above:Performed By: #### CMP #### [facility] [address] [place], [place] [address]wILZ FEMALE>90Normal>90JFK Johnson Rehabilitation InstituteComment on above:Result Comment: CALCULATIONS OF ESTIMATED GFR ARE PERFORMED USING THE 2020 CKD-EPI STUDY REFIT EQUATION WITHOUT THE RACE VARIABLE FOR THE IDMS-TRACEABLE CREATININE METHODS. https://jasn.asnjournals.org/content//ASN.4997559645Naaofmhnx By: #### CMP #### [facility] [address] [place], [place] [address]Ntaikda [Mass/Vol]95 mg/wMOujtet71 - 99J[facility] Rehabilitation InstituteComment on above:Performed By: #### CMP #### [facility] [address] [place], [place] [address]OAT4 (Bld) [Moles/Vol]29 mmol/ZWsovai85 - 32J[facility] Rehabilitation InstituteComment on above:Performed By: #### CMP #### [facility] [address] [place], [place] [address]Dqleyylxd [Moles/Vol]3.7 mmol/LNormal3.5 - 5.3J[facility] Rehabilitation InstituteComment on above:Performed By: #### CMP #### [facility] [address] [place], [place] [address]Uqwbymu [Mass/Vol]5.3 g/dLLow6.4 - 8.2[facility] And Medical CenterComment on above:Performed By: #### CMP #### [facility] [address] [place], [place] [address]Cebxebzep By: #### IFE3 #### [facility] [address] [place], [place] [address]Lqwnrk [Moles/Vol]143 mmol/HRwyaeu636 - 145[facility] And Medical CenterComment on above:Performed By: #### CMP #### [facility] [address] [place], [place] [address]Mpgs nitrogen [Mass/Vol]11 mg/dLNormal6 - 23J[facility] Johnson Rehabilitation InstituteComment on above:Performed By: #### CMP #### [facility] [address] [place], [place] [address]Mvkybh Note - Heme Oncon 56-86-0804Wxijkc Note - Heme Onc Cancer History: Treatment Synopsis: She has been referred from Dr. Marinelli at [facility]. Patient has hx of MGUS since 2005 for which she was followed at [facility] by Dr. Kumari, and then [...] discussed: Myrna CHRISTIANSON, López Bell LD, Catarino N, Elizabeth D, Stacy J, Tiburcio S, Toribio Thomas, Camila Y, Sdae D, Chacorta A, Lucy P. Idecabtagene vicleucel in relapsed and refractory multiple myeloma. [place] Journal of Medicine. 2020Dec 27;384(8):705-16. Also, I discussed the possibility of Teclistamab in future, when it is open in [facility]. For now, I suggest to hold therapy and continue to monitor. RTC in two months Time Based Billing: Prep Time on Date of Patient Encounter5 minute(s) Time Directly with (more content not included)...[facility] HospitalCl[facility] - Intakeon 45-13-1386Tuvibv Note - IntakePatient Visit Information: Visit TypeFollow [...] (kg/m2)34.9 kg/M2 BSA (m2)1.91 M2 Nursing Verification [id number] Nursing Verification Height in cm155.6 centimeter(s) Nursing [...] you are livingno Depression: Past 2 wks: [place] down, depressed or hopelessno Past 2 wks: [place] little interest/pleasure doing thingsno Any Thoughts of [...] around or learningno Electronic Signatures: Chey Murray ([facility]) (Signed 01-Jan-2023 15:42) Authored: Patient Visit Information, Vital Signs, Allergies, Outpatient Medication Profile, Notification, Travel History, Falls, Violence, Depression, Substance, Nutrition/Learning Antoinette Dumont ([employer]) (Signed 01-Jan-2023 18:13) Authored: Vital Signs, Notification Last Updated: 01-Jan-2023 18:13 by Antoinette Dumont ([employer] [employer] Onamia HospitalIgA [Mass/volume] in Serum or PlasmaOrdered By: Fabiola Marinelli on 72-71-5160FnD [Mass/Vol]20 mg/pN38-675AbdxaoyxpChildren'S Hospital For Rehabilitation Comment on above:Result confirmed on concentration.IgG [Mass/volume] in Serum or PlasmaOrdered By: Fabiola Marinelli on 31-66-3426LiI [Mass/Vol]311 mg/nA778-3404 [facility] For RehabilitationIgM [Mass/volume] in Serum or PlasmaOrdered By: Fabiola Marinelli on 13-72-3533EcH [Mass/Vol]13 mg/iI36-061YhhypdpozChildren'S Hospital For RehabilitationComment on above:Result confirmed on concentration.Performed at: [address] [id number] Director: Lang Knight PhD, Phone: [phone] light chains.kappa.free [Mass/volume] in SerumOrdered By: Fabiola Marinelli on 28-18-7731Sdxuhvuwisnrqz light chains.kappa.free (S) [Mass/Vol]6.3 mg/L3.3-19.4FOhioHealth Arthur G.H. Bing, MD, Cancer CenterImmunoglobulin light chains.kappa.free/Immunoglobulin light chains.lambda.free [MassOrdered By: Fabiola Marinelli on 73-47-6745Wglnjbnvkphwqb light chains.kappa.free/Immunoglobulin light chains.lambda.free (S) [Mass ratio]0.10 0.26-1.65[facility] Hospital For RehabilitationComment on above:Performed at: [employer] [id number] Director: Lang Knight PhD, Phone: [phone] light chains.lambda.free [Mass/volume] in Serum or PlasmaOrdered By: Fabiola Marinelli on 01-01-2023 Immunoglobulin light chains.lambda.free [Mass/Vol]61.3 mg/L5.7-26.3FOhioHealth Arthur G.H. Bing, MD, Cancer CenterLDHon 82-35-0366BTM826 U/HDdopkj45 - 246J[facility] Johnson Rehabilitation InstituteComment on above:Performed By: #### LDH #### [facility] [address] [place], [place] [address]Wcykoelnhbxpej [Presence] in Blood by Light microscopyOrdered By: Fabiola Marinelli on 49-70-9551Wjcjxajjzkhsst LM Ql (Bld)[facility] Children's HospitalRED CELL MORPHOLOGYon 61-14-2827EJOFRSNTJARqsThrxwgBS [facility] Medical CenterComment on above:Performed By: #### MORP2 #### [facility] [address] [place], [place] [address]UUF morphology finding Nom (Bld)See BelowNoDenver SpringsComment on above:Performed By: #### MORP2 #### [facility] [address] [place], [place] [address]HWNH ACIDon 94-87-0273Zlyhn [Mass/Vol]3.9 mg/dLNormal2.3 - 6.7J[facility] Rehabilitation InstituteComment on above:Result Comment: Venipuncture immediately after or during the administration of Metamizole may lead to falsely low results. Testing should be performed immediately prior to Metamizole dosing.Performed By: #### CUATE #### [facility] [address] [place], [place] [address]Ajbybnk [Mass/volume] in Serum or PlasmaOrdered By: Fabiola Marinelli on 16-55-2923Ljthjof [Mass/Vol]3.1 g/dL3.2-5.5FOhioHealth Arthur G.H. Bing, MD, Cancer Center Alkaline phosphatase [Enzymatic activity/volume] in Serum or PlasmaOrdered By: Fabiola Marinelli on 99-94-8526BPR [Catalytic activity/Vol]96 U/G88-57BvlylwucbChildren'S Hospital For RehabilitationAnisocytosis LM Ql (Bld)Ordered By: Fabiola Marinelli on 12-25-2022 Anisocytosis Ql (Bld)SlightChildren'S Hospital For RehabilitationAspartate aminotransferase [Enzymatic activity/volume] in Serum or PlasmaOrdered By: Fabiola Marinelli on 75-66-4579PUO [Catalytic activity/Vol]29 U/F03-93DbqbgmxzpChildren'S Hospital For RehabilitationBasophils Auto (Bld) [#/Vol]Ordered By: Fabiola Marinelli on 12-25-2022 Basophils (Bld) [#/Vol]0.0 10*3/uL0.0-0.2FOhioHealth Arthur G.H. Bing, MD, Cancer Center Basophils/100 WBC Auto (Bld)Ordered By: Fabiola Marinelli on 76-26-7288Snbsbqbzl/100 WBC (Bld)0.3 %.[facility]'S Hospital For RehabilitationBilirubin.total [Mass/volume] in Serum or PlasmaOrdered By: Fabiola Marinelli on 07-84-3954Fvlbehiwe [Mass/Vol]1.1 mg/dL 0.3-1.2FOhioHealth Arthur G.H. Bing, MD, Cancer CenterCalcium [Mass/volume] in Serum or Plasma Ordered By: Fabiola Marinelli on 36-72-4698Wipjpmp [Mass/Vol]8.4 mg/dL8.2-10.2FOhioHealth Arthur G.H. Bing, MD, Cancer CenterCarbon dioxide, total [Moles/volume] in Serum or Plasma Ordered By: Fabiola Marinelli on 96-16-5482RR4 [Moles/Vol]26.9 mmol/L22.0-30.0[facility] For RehabilitationChloride [Moles/volume] in Serum or PlasmaOrdered By: Fabiola Marinelli on 78-93-5322Omslbucg [Moles/Vol]106 mmol/T51-468ZeszfyuvtChildren'S Hospital For RehabilitationCreatinine and Glomerular filtration rate.predicted panel (S/P/Bld)Ordered By: Fabiola Marinelli on 83-30-6540Ummqpfzpik [Mass/Vol]0.42 mg/dL 0.44-1.03Children[facility] Hospital For RehabilitationEosinophils Auto (Bld) [#/Vol]Ordered By: Fabiola Marinelli on 40-02-8014Spmzygczooc (Bld) [#/Vol]0.1 10*3/uL0.0-0.45Children[facility]S Hospital For RehabilitationEosinophils/100 WBC Auto (Bld)Ordered By: Fabiola Marinelli on 96-90-7273Rktsnosadhe/100 WBC (Bld)4.0 %.[facility] Erythrocyte distribution width Auto (RBC) [Ratio]Ordered By: Fabiola Marinelli on 08-58-6151Ozbyvqzehtq distribution width (RBC) [Ratio]16.4 %11.9-15.3FOhioHealth Arthur G.H. Bing, MD, Cancer CenterEstimated glomerular filtration rate (GFR) non- AmericanOrdered By: Fabiola Marinelli on 88-60-2656JLY/1.73 sq M.predicted among non- blacks MDRD (S/P/Bld) [Vol rate/Area]> 60 mL/MinChildren'S Hospital For RehabilitationGFR/1.73 sq M.predicted among non-blacks MDRD (S/P/Bld) [Vol rate/Area] Estimated glomerular filtration rate (GFR) non- AmericanChildren'S Hospital For RehabilitationGlobulin Calc (S) [Mass/Vol]Ordered By: Fabiola Marinelli on 80-61-7363Vyincycn (S) [Mass/Vol]1.9 g/dLChildren'S Hospital For Rehabilitation Glucose [Mass/volume] in Serum or PlasmaOrdered By: Fabiola Marinelli on 12-25-2022 Glucose [Mass/Vol]108 mg/kG89-438AklawtzbdChildren'S Hospital For RehabilitationComment on above:ADA recommended reference rangeRandom Glucose Reference Range is dependent on time and content of last meal. Glucose of more than 200 mg/dL in a nonstressed, ambulatory subject supports the diagnosisof Diabetes Mellitus. Hematocrit Auto (Bld) [Volume fraction]Ordered By: Fabiola Marinelli on 12-25-2022 Hematocrit (Bld) [Volume fraction]32.5 %34.0-46.4FOhioHealth Arthur G.H. Bing, MD, Cancer CenterHemoglobin [Mass/volume] in BloodOrdered By: Fabiola Marinelli on 12-25-2022 Hemoglobin (Bld) [Mass/Vol]11.0 g/dL11.8-15.4FOhioHealth Arthur G.H. Bing, MD, Cancer Center Leukocytes [#/volume] corrected for nucleated erythrocytes in Blood by Automated counOrdered By: Fabiola Marinelli on 83-04-0227ZYJ corrected for nucl RBC Auto (Bld) [#/Vol]1.7 10*3/uL3.8-11.6FOhioHealth Arthur G.H. Bing, MD, Cancer CenterLymphocytes Auto (Bld) [#/Vol]Ordered By: Fabiola Marinelli on 18-21-4789Sainduvoytt (Bld) [#/Vol]0.5 10*3/uL1.00-4.8Children[facility]S Hospital For RehabilitationLymphocytes/100 WBC Auto (Bld) Ordered By: Fabiola Marinelli on 55-22-3413Gorrkebghhd/100 WBC (Bld)28.3 %.[facility] CenterH Auto (RBC) [Entitic mass]Ordered By: Fabiola Marinelli on 62-16-6362ZYP (RBC) [Entitic mass]34.6 pg24.7-34.3FOhioHealth Arthur G.H. Bing, MD, Cancer CenterMCHC Auto (RBC) [Mass/Vol]Ordered By: Fabiola Marinelli on 64-55-2553UCZC (RBC) [Mass/Vol]33.7 g/dL32.0-35.0Children[facility] Hospital For RehabilitationMCV Auto (RBC) [Entitic vol]Ordered By: Fabiola Marinelli on 56-61-1777BLG (RBC) [Entitic vol]102.5 fL 80-100Children[facility] Hospital For RehabilitationMicrocytes LM Ql (Bld)Ordered By: Fabiola Marinelli on 08-55-2688Qafynhbpfc Ql (Bld)SlightChildren'S Hospital For Rehabilitation Monocytes Auto (Bld) [#/Vol]Ordered By: Fabiola Marinelli on 45-71-0341Pbgjbvnke (Bld) [#/Vol]0.3 10*3/uL0.0-0.8Children[facility] Hospital For RehabilitationMonocytes/100 WBC Auto (Bld)Ordered By: Fabiola Marinelli on 23-72-9195Jtwmmesqo/100 WBC (Bld)15.7 %.[facility] Hospital For RehabilitationNeutrophils Auto (Bld) [#/Vol]Ordered By: Fabiola Marinelli on 62-55-4980Hqkukspqnce (Bld) [#/Vol]0.9 10*3/uL1.8-7.7FOhioHealth Arthur G.H. Bing, MD, Cancer CenterNeutrophils/100 WBC Auto (Bld)Ordered By: Fabiola Marinelli on 12-25-2022 Neutrophils/100 WBC (Bld)51.7 %.[facility] For RehabilitationNo Panel InformationOrdered By: Fabiola Marinelli on 54-50-2869Cjhsnjgin GFR ()> 60 mL/MinChildren'S Hospital For RehabilitationComment on above:GFR estimated reference range: According to KDOQI guidelines, <60 ml/min/1.73m2 is sufficient todiagnose a patient with chronic kidney disease.Pharmacy Creatinine Clearance (Chem70.50[facility]> 60 mL/MinChildren'S Hospital For Rehabilitation70.50[facility] For RehabilitationNucleated erythrocytes [Presence] in Blood by Automated countOrdered By: Fabiola Marinelli on 22-90-5321Qvnsmyaip RBC Auto Ql (Bld)0.1 /100{WBC}0-0.5FOhioHealth Arthur G.H. Bing, MD, Cancer CenterOvalocyte detection Ordered By: Fabiola Marinelli on 37-56-0811Loeznxjmck LM Ql (Bld)SlightChildren'S Hospital For RehabilitationPlatelet adequacy [Presence] in Blood by Light microscopy Ordered By: Fabiola Marinelli on 29-03-8226Oxmrfxjnf LM Ql (Bld)DecreasedNormalChildren'S Hospital For RehabilitationPlatelet mean volume Auto (Bld) [Entitic vol]Ordered By: Fabiola Marinelli on 20-11-4887Wazeygij mean volume (Bld) [Entitic vol]8.4 fL6.3-10.7 [facility] For RehabilitationPlatelet morphology finding [Identifier] in BloodOrdered By: Fabiola Marinelli on 37-18-3591Zlzaviut morphology finding Nom (Bld) NormalNormalChildren'S Hospital For RehabilitationPlatelets Auto (Bld) [#/Vol]Ordered By: Fabiola Marinelli on 21-10-3832Irokgyvdk (Bld) [#/Vol]37 10*3/zT632-552FyonjtsvnChildren'S Hospital For RehabilitationComment on above:Critical Result PLT:37 called to and read back by: [id number] on 12/25/2022 11:36:22 by:[email or web address].Poikilocytosis [Presence] in Blood by Light microscopyOrdered By: Fabiola Marinelli on 21-00-2404Myfqncncodfnzv LM Ql (Bld)[facility] Children's HospitalPolychromasia [Presence] in Blood by Light microscopyOrdered By: Fabiola Marinelli on 20-81-0701Zxnuhiachrbwj LM Ql (Bld)[facility] Children's HospitalPotassium [Moles/volume] in Serum or PlasmaOrdered By: Fabiola Marinelli on 25-09-2715Puqaairac [Moles/Vol]3.6 mmol/L3.5-5.1 [facility] For RehabilitationProtein [Mass/volume] in Serum or PlasmaOrdered By: Fabiola Marinelli on 96-44-0524Kskbrup [Mass/Vol]5.0 g/dL6.1-7.9[facility] For RehabilitationRB Auto (Bld) [#/Vol]Ordered By: Fabiola Marinelli on 52-59-7915VCX (Bld) [#/Vol]3.17 10*6/uL3.60-5.00[facility] morphology Ordered By: Fabiola Marinelli on 23-32-4635UED morphology finding Nom (Bld)N/AFKettering Health Daytonerum or plasma alanine aminotransferase measurement without P-5'-P (enzymatic activiOrdered By: Fabiola Marinelli on 43-58-3125ZSS No additional P-5'-P [Catalytic activity/Vol]28 U/R30-26HceklhyqySumma Healtherum or plasma albumin/globulin mass ratioOrdered By: Fabiola Marinelli on 92-33-0759Vkteleh/Globulin [Mass ratio]1.6 {ratio}Summa Healtherum or plasma anion gap determinationOrdered By: Fabiola Marinelli on 12-25-2022 Anion gap [Moles/Vol]8.7 mmol/L6.0-15.0Summa Healtherum or plasma creatinine measurement with calculation of estimated glomerular filtr Ordered By: Fabiola Marinelli on 65-35-3067Xtwjsloizm and Glomerular filtration rate.predicted panel (S/P/Bld)0.42 mg/dL0.44-1.03Summa Healthodium [Moles/volume] in Serum or PlasmaOrdered By: Fabiola Marinelli on 62-11-7692Lrdivf [Moles/Vol]138 mmol/K622-118JihinacxqChildren'S Hospital For Rehabilitation Urea nitrogen [Mass/volume] in Serum or PlasmaOrdered By: Fabiola Marinelli on 30-54-9340Unzl nitrogen [Mass/Vol]8 mg/dL9-23[facility] WBC Auto (Bld) [#/Vol]Ordered By: Fabiola Marinelli on 97-18-3948GJQ (Bld) [#/Vol]1.7 10*3/uL3.8-11.6FOhioHealth Arthur G.H. Bing, MD, Cancer CenterIgA [Mass/volume] in Serum or PlasmaOrdered By: Fabiola Marinelli on 69-86-3537SnS [Mass/Vol]19 mg/kJ86-601ZxiavogfjChildren'S Hospital For RehabilitationComment on above:Result confirmed on concentration.IgG [Mass/volume] in Serum or PlasmaOrdered By: Fabiola Marinelli on 11-56-3925DhU [Mass/Vol]306 mg/pS810-4604RrefejancChildren'S Hospital For RehabilitationIgM [Mass/volume] in Serum or PlasmaOrdered By: Fabiola Marinelli on 16-99-7169WhS [Mass/Vol]10 mg/tZ88-693 [facility] For RehabilitationComment on above:Result confirmed on concentration.Performed at: [facility] [address] [id number] Director: Lang Knight PhD, Phone: [phone] light chains.kappa.free [Mass/volume] in SerumOrdered By: Fabiola Marinelli on 12-18-2022 Immunoglobulin light chains.kappa.free (S) [Mass/Vol]5.8 mg/L3.3-19.4FOhioHealth Arthur G.H. Bing, MD, Cancer CenterImmunoglobulin light chains.kappa.free/Immunoglobulin light chains.lambda.free [MassOrdered By: Fabiola Marinelli on 41-38-2765Cdzwltfccxsmjd light chains.kappa.free/Immunoglobulin light chains.lambda.free (S) [Mass ratio] 0.140.26-1.65[facility] For RehabilitationComment on above:Performed at: - [facility] [id number] Director: Lang Knight PhD, Phone: [phone] light chains.lambda.free [Mass/volume] in Serum or PlasmaOrdered By: Fabiola Marinelli on 12-18-2022 Immunoglobulin light chains.lambda.free [Mass/Vol]41.7 mg/L5.7-26.3FOhioHealth Arthur G.H. Bing, MD, Cancer CenterMacrocytes LM Ql (Bld)Ordered By: Fabiola Marinelli on 12-18-2022 Macrocytes Ql (Bld)[facility] Children's HospitalPlatelets Large [Presence] in Blood by Light microscopyOrdered By: Fabiola Marinelli on 12-11-2022 Platelets Large LM Ql (Bld)[facility] Hospitalchistocytes [Presence] in Blood by Light microscopyOrdered By: Fabiola Marinelli on 12-11-2022 Schistocytes LM Ql (Bld)[facility]'s HospitalTeardrop cell detectionOrdered By: Fabiola Marinelli on 42-28-9103Nqrdvmltrj LM Ql (Bld)[facility] CenterAlbumin [Mass/volume] in Serum or PlasmaOrdered By: Fabiola Marinelli on 89-62-8552Knmiasg [Mass/Vol]3.1 g/dL3.2-5.5FOhioHealth Arthur G.H. Bing, MD, Cancer CenterAnisocytosis LM Ql (Bld)Ordered By: Fabiola Marinelli on 11-25-2022 Anisocytosis Ql (Bld)[facility]'s HospitalBasophils Auto (Bld) [#/Vol]Ordered By: Fabiola Marinelli on 44-93-6284Eixtoagbd (Bld) [#/Vol]N/AFOhioHealth Arthur G.H. Bing, MD, Cancer CenterBasophils/100 WBC Auto (Bld)Ordered By: Fabiola Marinelli on 05-74-9006Kfibrwzxi/100 WBC (Bld)N/[facility] CenterEosinophils Auto (Bld) [#/Vol]Ordered By: Fabiola Marinelli on 15-96-1558Avqsahetcic (Bld) [#/Vol] N/[facility] CenterEosinophils/100 WBC Auto (Bld)Ordered By: Fabiola Marinelli on 16-81-5197Obcqschfwzy/100 WBC (Bld)N/[facility] CenterEosinophils/100 WBC Manual cnt (Bld)Ordered By: Fabiola Marinelli on 11-25-2022 Eosinophils/100 WBC (Bld)2 %1-3FOhioHealth Arthur G.H. Bing, MD, Cancer CenterErythrocyte distribution width Auto (RBC) [Ratio]Ordered By: Fabiola Marinelli on 11-25-2022 Erythrocyte distribution width (RBC) [Ratio]17.5 %11.9-15.3FOhioHealth Arthur G.H. Bing, MD, Cancer CenterEstimated glomerular filtration rate (GFR) non- Ordered By: Fabiola Marinelli on 09-29-5925BKR/1.73 sq M.predicted among non-blacks MDRD (S/P/Bld) [Vol rate/Area]> 60 mL/MinChildren'S Hospital For RehabilitationGiant platelets/100 leukocytes [Ratio] in Blood by Manual countOrdered By: Fabiola Marinelli on 06-03-2950Tzbkk platelets/100 WBC Manual cnt (Bld) [Ratio]4 /100{WBC} [facility] For RehabilitationGlobulin Calc (S) [Mass/Vol]Ordered By: Fabiola Marinelli on 42-71-2011Fquzhfrm (S) [Mass/Vol]1.8 g/dLChildren'S Hospital For RehabilitationHematocrit Auto (Bld) [Volume fraction]Ordered By: Fabiola Marinelli on 11-25-2022 Hematocrit (Bld) [Volume fraction]31.3 %34.0-46.4FOhioHealth Arthur G.H. Bing, MD, Cancer CenterHemoglobin [Mass/volume] in BloodOrdered By: Fabiola Marinelli on 11-25-2022 Hemoglobin (Bld) [Mass/Vol]10.6 g/dL11.8-15.4FOhioHealth Arthur G.H. Bing, MD, Cancer Center Leukocytes [#/volume] corrected for nucleated erythrocytes in Blood by Automated counOrdered By: Fabiola Marinelli on 76-72-6107TWZ corrected for nucl RBC Auto (Bld) [#/Vol]1.3 10*3/uL3.8-11.6FOhioHealth Arthur G.H. Bing, MD, Cancer CenterLymphocytes Auto (Bld) [#/Vol]Ordered By: Fabiola Marinelli on 89-96-4616Tkvkslgyijh (Bld) [#/Vol]N/A [facility] For RehabilitationLymphocytes/100 WBC Auto (Bld)Ordered By: Fabiola Marinelli on 40-19-8128Hwfeoflugkb/100 WBC (Bld)N/[facility] Lymphocytes/100 WBC Manual cnt (Bld)Ordered By: Fabiola Marinelli on 11-25-2022 Lymphocytes/100 WBC (Bld)37 %18-42[facility] CenterH Auto (RBC) [Entitic mass]Ordered By: Fabiola Marinelli on 93-99-4719ZQR (RBC) [Entitic mass] 34.5 pg24.7-34.3FOhioHealth Arthur G.H. Bing, MD, Cancer CenterMCHC Auto (RBC) [Mass/Vol] Ordered By: Fabiola Marinelli on 50-17-4589YTRN (RBC) [Mass/Vol]33.8 g/dL32.0-35.0 [facility] For RehabilitationMCV Auto (RBC) [Entitic vol]Ordered By: Fabiola Marinelli on 80-89-5722NOM (RBC) [Entitic vol]102.1 aQ01-400KnrahwvncChildren'S Hospital For RehabilitationMonocytes Auto (Bld) [#/Vol]Ordered By: Fabiola Marinelli on 11-25-2022 Monocytes (Bld) [#/Vol]N/[facility] CenterMonocytes/100 WBC Auto (Bld)Ordered By: Fabiola Marinelli on 33-60-9885Eudumuwkc/100 WBC (Bld)N/[facility] CenterMonocytes/100 WBC Manual cnt (Bld)Ordered By: Fabiola Marinelli on 25-31-9789Dotednjcy/100 WBC (Bld)7 %2-11[facility] Neutrophils Auto (Bld) [#/Vol]Ordered By: Fabiola Marinelli on 22-79-9644Ixawcfmuapu (Bld) [#/Vol]N/[facility] CenterNeutrophils/100 WBC Auto (Bld) Ordered By: Fabiola Marinelli on 22-44-0213Dbnabacnusa/100 WBC (Bld)/[facility] CenterNo Panel InformationOrdered By: Fabiola Marinelli on 11-25-2022> 60 mL/MinChildren'S Hospital For Rehabilitation69.88[facility] Nucleated erythrocytes [Presence] in Blood by Automated countOrdered By: Fabiola Marinelli on 17-51-1987Lqhfbepuk RBC Auto Ql (Bld)N/[facility] CenterOvalocyte detectionOrdered By: Fabiola Marinelli on 75-00-9692Xboiizcrsg LM Ql (Bld)[facility]'s HospitalPlatelet adequacy [Presence] in Blood by Light microscopyOrdered By: Fabiola Marinelli on 72-67-5923Yccmzfnci LM Ql (Bld)DecreasedNoLutheran HospitalPlatelet mean volume Auto (Bld) [Entitic vol]Ordered By: Fabiola Marinelli on 02-68-9108Ycknuyqr mean volume (Bld) [Entitic vol]8.8 fL6.3-10.7FOhioHealth Arthur G.H. Bing, MD, Cancer CenterPlatelet morphology finding [Identifier] in BloodOrdered By: Fabiola Marinelli on 69-19-1799Bniizvhy morphology finding Nom (Bld)NormalNoLutheran Hospital Platelets Auto (Bld) [#/Vol]Ordered By: Fabiola Marinelli on 12-68-6764Pwoxehawc (Bld) [#/Vol]40 10*3/lM098-128VwofrxmseChildren'S Hospital For RehabilitationPolychromasia [Presence] in Blood by Light microscopyOrdered By: Fabiola Marinelli on 11-25-2022 Polychromasia LM Ql (Bld)[facility] HospitalProtein [Mass/volume] in Serum or PlasmaOrdered By: Fabiola Marinelli on 08-18-7849Rbbvxwx [Mass/Vol]4.9 g/dL6.1-7.9[facility] For RehabilitationRBC Auto (Bld) [#/Vol] Ordered By: Fabiola Marinelli on 37-04-1121AJV (Bld) [#/Vol]3.07 10*6/uL3.60-5.00 [facility] For RehabilitationRB morphologyOrdered By: Fabiola Marinelli on 29-00-9707YXV morphology finding Nom (Bld)N/AFOhioHealth Arthur G.H. Bing, MD, Cancer Center Segmented neutrophils/100 WBC Manual cnt (Bld)Ordered By: Fabiola Marinelli on 62-77-4268Jegcfokfl neutrophils/100 WBC (Bld)54 %50-70Summa Healtherum or plasma alanine aminotransferase measurement without P-5'-P (enzymatic activiOrdered By: Fabiola Marinelli on 05-28-6097HFN No additional P-5'-P [Catalytic activity/Vol]26 U/Y07-73XcfnddtlkSumma Healtherum or plasma albumin/globulin mass ratioOrdered By: Fabiola Marinelli on 11-25-2022 Albumin/Globulin [Mass ratio]1.7 {ratio}[facility]ma Healtherum or plasma alkaline phosphatase measurement (enzymatic activity/volume)Ordered By: Fabiola Marinelli on 46-77-9701UNW [Catalytic activity/Vol]92 U/S84-23HckeigonwSumma Healtherum or plasma anion gap determinationOrdered By: Fabiola Marinelli on 66-14-1332Wbbqi gap [Moles/Vol]10.6 mmol/L6.0-15.0Summa Healtherum or plasma aspartate aminotransferase measurement (enzymatic activity/volume)Ordered By: Fabiola Marinelli on 61-42-4812TNS [Catalytic activity/Vol] 28 U/P02-00ZrptuqznhSumma Healtherum or plasma calcium measurement (mass/volume)Ordered By: Fabiola Marinelli on 48-39-2061Jgkqpjg [Mass/Vol]8.7 mg/dL 8.2-10.2FKettering Health Daytonerum or plasma chloride measurement (moles/volume)Ordered By: Fabiola Marinelli on 91-20-6537Vwzvqhln [Moles/Vol]106 mmol/L 95-114Summa Healtherum or plasma creatinine measurement with calculation of estimated glomerular filtrOrdered By: Fabiola Marinelli on 40-23-4056Zubafaflkp and Glomerular filtration rate.predicted panel (S/P/Bld) 0.41 mg/dL0.44-1.03Summa Healtherum or plasma glucose measurement (mass/volume)Ordered By: Fabiola Marinelli on 26-16-5125Tubwvxw [Mass/Vol] 107 mg/vM63-881HzfmeupwxSumma Healtherum or plasma potassium measurement (moles/volume)Ordered By: Fabiola Marinelli on 26-76-3792Driqgygqi [Moles/Vol]3.8 mmol/L3.5-5.1FKettering Health Daytonerum or plasma sodium measurement (moles/volume)Ordered By: Fabiola Marinelli on 08-43-5769Fxhqtr [Moles/Vol]139 mmol/W301-486DizitncktSumma Healtherum or plasma total bilirubin measurement (mass/volume)Ordered By: Fabiola Marinelli on 11-25-2022 Bilirubin [Mass/Vol]1.2 mg/dL0.3-1.2FKettering Health Daytonerum or plasma total carbon dioxide measurement (moles/volume)Ordered By: Fabiola Marinelli on 23-82-0526PG7 [Moles/Vol]26.2 mmol/L22.0-30.0[facility] Serum or plasma urea nitrogen measurement (mass/volume)Ordered By: Fabiola Marinelli on 20-57-3055Apgh nitrogen [Mass/Vol]9 mg/dL9-23[facility] Teardrop cell detectionOrdered By: Fabiola Marinelli on 92-32-7861Puxifgzjtw LM Ql (Bld) [facility] HospitalWBC Auto (Bld) [#/Vol]Ordered By: Fabiola Marinelli on 48-75-3872BFK (Bld) [#/Vol]1.3 10*3/uL3.8-11.6FOhioHealth Arthur G.H. Bing, MD, Cancer CenterHypochromia LM Ql (Bld)Ordered By: Fabiola Marinelli on 11-13-2022 Hypochromia Ql (Bld)[facility]'s HospitalIgA [Mass/volume] in Serum or PlasmaOrdered By: Fabiola Marinelli on 53-60-5997CyL [Mass/Vol]20 mg/lU30-415 [facility] RehabilitationIgG [Mass/volume] in Serum or PlasmaOrdered By: Fabiola Marinelli on 27-28-8772VqO [Mass/Vol]321 mg/gA072-6009EsthttruuChildren'S Hospital For RehabilitationIgM [Mass/volume] in Serum or PlasmaOrdered By: Fabiola Marinelli on 76-52-0595IwA [Mass/Vol]11 mg/tV28-343BtfrafdkwChildren'S Hospital For Rehabilitation Immunoglobulin light chains.kappa.free [Mass/volume] in SerumOrdered By: Fabiola Marinelli on 51-24-6366Aczkwptezkdlrq light chains.kappa.free (S) [Mass/Vol]5.7 mg/L 3.3-19.4FOhioHealth Arthur G.H. Bing, MD, Cancer CenterImmunoglobulin light chains.kappa.free/Immunoglobulin light chains.lambda.free [MassOrdered By: Fabiola Marinelli on 06-21-0622Pjeblbfcflrzfe light chains.kappa.free/Immunoglobulin light chains.lambda.free (S) [Mass ratio]0.150.26-1.65[facility] RehabilitationImmunoglobulin light chains.lambda.free [Mass/volume] in Serum or Plasma Ordered By: Fabiola Marinelli on 72-58-2871Evnljdbwipduoq light chains.lambda.free [Mass/Vol]38.7 mg/L5.7-26.3FOhioHealth Arthur G.H. Bing, MD, Cancer CenterMacrocytes LM Ql (Bld)Ordered By: Fabiola Marinelli on 57-80-9652Qkfyvfzmwb Ql (Bld)[facility]'s HospitalPoikilocytosis [Presence] in Blood by Light microscopy Ordered By: Fabiola Marinelli on 65-82-3059Uixecfirjkoasa LM Ql (Bld)[facility] HospitalAnisocytosis LM Ql (Bld)Ordered By: Fabiola Marinelli on 06-44-7828Omxxnkztstjs Ql (Bld)[facility] HospitalBand form neutrophils/100 WBC Manual cnt (Bld)Ordered By: Fabiola Marinelli on 65-88-1553Nezs form neutrophils/100 WBC (Bld)1 %0-5FOhioHealth Arthur G.H. Bing, MD, Cancer CenterBand form neutrophils/100 WBC (Bld)Peripheral white blood cell differential % bands, microscopic exam0-5FOhioHealth Arthur G.H. Bing, MD, Cancer CenterBasophils Auto (Bld) [#/Vol] Ordered By: Fabiola Marinelli on 91-67-0232Oxtimmfxi (Bld) [#/Vol]N/[facility] CenterBasophils/100 WBC Auto (Bld)Ordered By: Fabiola Marinelli on 11-05-2022 Basophils/100 WBC (Bld)N/[facility] CenterEosinophils Auto (Bld) [#/Vol]Ordered By: Fabiola Marinelli on 91-85-1191Gggjbyvqxmv (Bld) [#/Vol]N/A [facility] RehabilitationEosinophils/100 WBC Auto (Bld)Ordered By: Fabiola Marinelli on 93-67-5856Ksmsdpbyzlg/100 WBC (Bld)N/[facility] Eosinophils/100 WBC Manual cnt (Bld)Ordered By: Fabiola Marinelli on 11-05-2022 Eosinophils/100 WBC (Bld)7 %1-3FOhioHealth Arthur G.H. Bing, MD, Cancer CenterErythrocyte distribution width Auto (RBC) [Ratio]Ordered By: Fabiola Marinelli on 11-05-2022 Erythrocyte distribution width (RBC) [Ratio]15.9 %11.9-15.3FOhioHealth Arthur G.H. Bing, MD, Cancer CenterGiant platelets/100 leukocytes [Ratio] in Blood by Manual count Ordered By: Fabiola Marinelli on 49-09-3090Pxrog platelets/100 WBC Manual cnt (Bld) [Ratio]9 /100{WBC}[facility] For RehabilitationHematocrit Auto (Bld) [Volume fraction]Ordered By: Fabiola Marinelli on 22-68-2069Wpylrdlvrk (Bld) [Volume fraction] 31.7 %34.0-46.4FOhioHealth Arthur G.H. Bing, MD, Cancer CenterHemoglobin [Mass/volume] in BloodOrdered By: Fabiola Marinelli on 71-20-5291Hubxjlolol (Bld) [Mass/Vol]10.8 g/dL 11.8-15.4FOhioHealth Arthur G.H. Bing, MD, Cancer CenterLeukocytes [#/volume] corrected for nucleated erythrocytes in Blood by Automated counOrdered By: Fabiola Marinelli on 95-22-1421XYO corrected for nucl RBC Auto (Bld) [#/Vol]1.5 10*3/uL3.8-11.6 [facility] For RehabilitationLymphocytes Auto (Bld) [#/Vol]Ordered By: Fabiola Marinelli on 41-50-8634Jeudrgvdkfx (Bld) [#/Vol]N/[facility] Lymphocytes/100 WBC Auto (Bld)Ordered By: Fabiola Marinelli on 99-87-7065Adsqwnvgkzo/100 WBC (Bld)N/[facility] CenterLymphocytes/100 WBC Manual cnt (Bld)Ordered By: Fabiola Marinelli on 25-82-7013Lkjokenkqtm/100 WBC (Bld)34 %18-42 [facility] For RehabilitationMCH Auto (RBC) [Entitic mass]Ordered By: Fabiola Marinelli on 33-25-5857MVM (RBC) [Entitic mass]34.6 pg24.7-34.3FWilson HealthHC Auto (RBC) [Mass/Vol]Ordered By: Fabiola Marinelli on 29-28-5469NNVV (RBC) [Mass/Vol]34.0 g/dL32.0-35.0[facility] For RehabilitationMCV Auto (RBC) [Entitic vol]Ordered By: Fabiola Marinelli on 18-85-7515LNP (RBC) [Entitic vol] 101.7 aW34-419OrkzmyllwChildren'S Hospital For RehabilitationMicrocytes LM Ql (Bld)Ordered By: Fabiola Marinelli on 10-87-1561Fmsooxvgbz Ql (Bld)SlightChildren'S Hospital For RehabilitationMonocytes Auto (Bld) [#/Vol]Ordered By: Fabiola Marinelli on 45-92-3191Lpavxxfdm (Bld) [#/Vol]N/[facility] CenterMonocytes/100 WBC Auto (Bld) Ordered By: Fabiola Marinelli on 41-82-0589Awpeewfvv/100 WBC (Bld)N/[facility] CenterMonocytes/100 WBC Manual cnt (Bld)Ordered By: Fabiola Marinelli on 04-84-0164Qbdcuxfrf/100 WBC (Bld)13 %2-11[facility] Myelocytes/100 WBC Manual cnt (Bld)Ordered By: Fabiola Marinelli on 11-05-2022 Myelocytes/100 WBC (Bld)1 %High0-0[facility] Myelocytes/100 WBC (Bld)Myelocytes/100 leukocytes in Blood by Manual countHigh 0-0[facility] For RehabilitationNeutrophils Auto (Bld) [#/Vol]Ordered By: Fabiola Marinelli on 39-57-7439Iefkzfascwx (Bld) [#/Vol]N/[facility] CenterNeutrophils/100 WBC Auto (Bld)Ordered By: Fabiola Marinelli on 11-05-2022 Neutrophils/100 WBC (Bld)N/[facility] CenterNucleated erythrocytes [Presence] in Blood by Automated countOrdered By: Fabiola Marinelli on 06-36-8987Jiuvqtwle RBC Auto Ql (Bld)N/[facility] Ovalocyte detectionOrdered By: Fabiola Marinelli on 10-88-5955Thtlgjjcpa LM Ql (Bld) [facility] HospitalPlatelet adequacy [Presence] in Blood by Light microscopyOrdered By: Fabiola Marinelli on 09-64-8882Tnjmodepp LM Ql (Bld) DecreasedNormWood County HospitalPlatelet mean volume Auto (Bld) [Entitic vol]Ordered By: Fabiola Marinelli on 32-28-3561Uuhlaorg mean volume (Bld) [Entitic vol]9.7 fL6.3-10.7FOhioHealth Arthur G.H. Bing, MD, Cancer CenterPlatest. jose[facility] morphology finding [Identifier] in BloodOrdered By: Fabiola Marinelli on 93-48-1938Soojqzdu morphology finding Nom (Bld)NormalNormWood County Hospital Platelets Auto (Bld) [#/Vol]Ordered By: Fabiola Marinelli on 86-92-4243Gysqamwym (Bld) [#/Vol]46 10*3/pD557-898AjuxxuneeChildren'S Hospital For RehabilitationPoikilocytosis [Presence] in Blood by Light microscopyOrdered By: Fabiola Marinelli on 11-05-2022 Poikilocytosis LM Ql (Bld)[facility]'s HospitalPolychromasia [Presence] in Blood by Light microscopyOrdered By: Fabiola Marinelli on 11-05-2022 Polychromasia LM Ql (Bld)[facility] HospitalRBC Auto (Bld) [#/Vol]Ordered By: Fabiola Marinelli on 09-10-6853EGD (Bld) [#/Vol]3.12 10*6/uL3.60-5.00 [facility] morphologyOrdered By: Fabiola Marinelli on 89-90-9362IXE morphology finding Nom (Bld)N/[facility] Segmented neutrophils/100 WBC Manual cnt (Bld)Ordered By: Fabiola Marinelli on 87-62-6863Magvdqpww neutrophils/100 WBC (Bld)46 %50-70[facility] For RehabilitationTeardrop cell detectionOrdered By: Fabiola Marinelli on 16-07-6011Ndwposfsxf LM Ql (Bld)[facility] HospitalWBC Auto (Bld) [#/Vol]Ordered By: Fabiola Marinelli on 88-83-9423IKR (Bld) [#/Vol]1.5 10*3/uL3.8-11.6FOhioHealth Arthur G.H. Bing, MD, Cancer CenterMacrocytes LM Ql (Bld)Ordered By: Fabiola Marinelli on 10-28-2022 Macrocytes Ql (Bld)[facility] HospitalPlatelets Large [Presence] in Blood by Light microscopyOrdered By: Fabiola Marinelli on 10-28-2022 Platelets Large LM Ql (Bld)[facility]'s HospitalXR CHEST 1 Von 01-82-9106SY CHEST 1 VEXAMINATION: XR CHEST 1 V [...] Electronically authenticated by: RISA HERNANDEZ Date: 2022-10-23 15:24[facility] HospitalRESPIRATORY PANEL PLUSon 30-45-3819WlnmbdxutyWjo detectedNormal NOT DETECTEDThe [facility] Boardman HospitalComment on above:Performed By: #### RSPLUS #### [facility] [address] [address] [address] Griselda Phoenix. ParapertusisNot detectedNormalNOT DETECTEDThe [facility] Board[facility] HospitalComment on above:Performed By: #### RSPLUS #### [facility] [address] [address] [address] Griselda Phoenix. PertussisNot detectedNormalNOT DETECTEDThe [facility] Comment on above:Performed By: #### RSPLUS #### [facility] [address] [address] [address] Griselda RuedaChlamydia PneumoniaeNot detectedNormalNOT DETECTEDThe [facility] HospitalComment on above:Performed By: #### RSPLUS #### [facility] [address] [address] [address] Griselda RuedaCoronavirus 229ENot detectedNormalNOT DETECTEDThe [facility] HospitalComment on above:Performed By: #### RSPLUS #### [facility] [address] [address] [address] Griselda RuedaCoronavirus FHD5Mxo detectedNormalNOT DETECTEDThe [facility] HospitalComment on above:Performed By: #### RSPLUS #### [facility] [address] [address] [address] Griselda RuedaCoronavirus RD40Nae detectedNormalNOT DETECTEDThe [facility] HospitalComment on above:Performed By: #### RSPLUS #### [facility] [address] [address] [address] Griselda RuedaCoronavirus WU76Bvd detectedNormalNOT DETECTEDThe [facility] HospitalComment on above:Performed By: #### RSPLUS #### [facility] [address] [address] [address] Griselda Oconnor H1 2009Not detectedNormalNOT DETECTEDThe [facility] HospitalComment on above:Performed By: #### RSPLUS #### [facility] [address] [address] [address] Griselda Ward A I0RnpxepprSawyxrrmYVK DETECTEDThe [facility] Comment on above:Performed By: #### RSPLUS #### [facility] [address] [address] [address] Griselda Ward BNot detectedNormalNOT DETECTEDThe [facility] Comment on above:Performed By: #### RSPLUS #### [facility] [address] [address] [address] Griselda HarperapneumovirusNot detectedNormalNOT DETECTEDThe [facility] HospitalComment on above:Performed By: #### RSPLUS #### [facility] [address] [address] [address] Griselda Curry. PneumoniaeNot detectedNormalNOT DETECTEDThe [facility] HospitalComment on above:Performed By: #### RSPLUS #### [facility] [address] [address] [address] Griselda Perez 1Not detectedNormalNOT DETECTEDThe [facility] HospitalComment on above:Performed By: #### RSPLUS #### [facility] [address] [address] [address] Griselda Perez 2Not detectedNormalNOT DETECTEDThe [facility] HospitalComment on above:Performed By: #### RSPLUS #### [facility] [address] [address] [address] Griselda Perez 3Not detectedNormalNOT DETECTEDThe [facility] HospitalComment on above:Performed By: #### RSPLUS #### [facility] [address] [address] [address] Griselda Perez 4Not detectedNormalNOT DETECTEDThe [facility] HospitalComhenry ford [facility] on above:Performed By: #### RSPLUS #### [facility] [address] [address] [address] Griselda RuedaRhlopez/EnterovirusNot detectedNormalNOT DETECTEDThe [facility] Elizabeth Boardman HospitalComment on above:Performed By: #### RSPLUS #### [facility] [address] [address] [address] Griselda Oconnor Header 1RESPIRATORY PANEL: VIRUSESSumma Health on above:Performed By: #### RSPLUS #### [facility] [address] [address] [address] Griselda Oconnor Header 2RESPIRATORY PANEL: BACTERIANoHenry County HospitalComment on above:Performed By: #### RSPLUS #### [facility] [address] [address] [address] Griselda DoNot detectedNormalNOT DETECTEDThe [facility] St[facility] Board[facility] HospitalComment on above:Performed By: #### RSPLUS #### [facility] [address] [place], [place] [address] Dr. Griselda Che-CoV-2 (COVID-19) RNA JOHANN+probe Ql (Unsp spec)Not detected NormalNOT DETECTEDThe [facility] St[facility] Elizabeth Boardman HospitalComment on above:Performed By: #### RSPLUS #### [facility] [address] [place], [place] [address] Dr. 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 Order #: [id number] CLICK HERE TO VIEW EXAM RADIOLOGY REPORT [...] age 66. LOCATION: [facility] BREAST COMPOSITION: Scattered areas fibroglandular density. FINDINGS: [...] by: Phyllis Lozano MD on 10/16/2022 at 13:20[facility] Anisocytosis LM Ql (Bld)Ordered By: Fabiola Marinelli on 24-31-0091Qxpdliljznlb Ql (Bld) SlightChildren'S Hospital For RehabilitationBasophils Auto (Bld) [#/Vol]Ordered By: Fabiola Marinelli on 38-83-4996Aohdtpbqn (Bld) [#/Vol]0.0 10*3/uL0.0-0.2FOhioHealth Arthur G.H. Bing, MD, Cancer CenterBasophils/100 WBC Auto (Bld)Ordered By: Fabiola Marinelli on 54-49-5662Jnhfrcdoj/100 WBC (Bld)0.3 %.[facility] For RehabilitationBody fluid albumin measurement (mass/volume)Ordered By: Fabiola Marinelli on 10-14-2022 Albumin (Body fld) [Mass/Vol]3.0 g/dL3.2-5.5FOhioHealth Arthur G.H. Bing, MD, Cancer Center Creatinine and Glomerular filtration rate.predicted panel (S/P/Bld)Ordered By: Fabiola Marinelli on 08-59-5956Tnkdrgwiom [Mass/Vol]0.43 mg/dL0.44-1.03[facility] For RehabilitationEosinophils Auto (Bld) [#/Vol]Ordered By: Fabiola Marinelli on 63-76-4457Jofqcgmcryl (Bld) [#/Vol]0.1 10*3/uL0.0-0.45[facility] For RehabilitationEosinophils/100 WBC Auto (Bld)Ordered By: Fabiola Marinelli on 10-14-2022 Eosinophils/100 WBC (Bld)3.6 %.[facility] For RehabilitationErythrocyte distribution width Auto (RBC) [Ratio]Ordered By: Fabiola Marinelli on 10-14-2022 Erythrocyte distribution width (RBC) [Ratio]16.9 %11.9-15.3FOhioHealth Arthur G.H. Bing, MD, Cancer CenterEstimated glomerular filtration rate (GFR) non- Ordered By: Fabiola Marinelli on 44-45-2542VNO/1.73 sq M.predicted among non-blacks MDRD (S/P/Bld) [Vol rate/Area]> 60 mL/MinChildren'S Hospital For RehabilitationGlobulin Calc (S) [Mass/Vol]Ordered By: Fabiola Marinelli on 54-73-6738Kdonbumg (S) [Mass/Vol]2.0 g/dLChildren'S Hospital For RehabilitationHematocrit Auto (Bld) [Volume fraction] Ordered By: Fabiola Marinelli on 68-21-0975Xokiphsnrm (Bld) [Volume fraction]31.3 % 34.0-46.4FOhioHealth Arthur G.H. Bing, MD, Cancer CenterHemoglobin [Mass/volume] in Blood Ordered By: Fabiola Marinelli on 50-51-1285Lxdbewaqps (Bld) [Mass/Vol]10.5 g/dL11.8-15.4 [facility] For RehabilitationLeukocytes [#/volume] corrected for nucleated erythrocytes in Blood by Automated counOrdered By: Fabiola Marinelli on 24-31-7836HWE corrected for nucl RBC Auto (Bld) [#/Vol]1.9 10*3/uL3.8-11.6FOhioHealth Arthur G.H. Bing, MD, Cancer CenterLymphocytes Auto (Bld) [#/Vol]Ordered By: Fabiola Marinelli on 10-14-2022 Lymphocytes (Bld) [#/Vol]0.4 10*3/uL1.00-4.8[facility] Lymphocytes/100 WBC Auto (Bld)Ordered By: Fabiola Marinelli on 99-79-1815Xvguzvcugos/100 WBC (Bld)23.7 %.[facility] CenterH Auto (RBC) [Entitic mass] Ordered By: Fabiola Marinelli on 04-54-2920XTP (RBC) [Entitic mass]35.3 pg24.7-34.3 [facility] For RehabilitationMCHC Auto (RBC) [Mass/Vol]Ordered By: Fabiola Marinelli on 29-79-9426IYBL (RBC) [Mass/Vol]33.6 g/dL32.0-35.0[facility] For RehabilitationMCV Auto (RBC) [Entitic vol]Ordered By: Fabiola Marinelli on 02-20-8216ZKH (RBC) [Entitic vol]104.9 kS99-347ZureibmclChildren'S Hospital For RehabilitationMonocytes Auto (Bld) [#/Vol]Ordered By: Fabiola Marinelli on 98-30-7794Dizodgkeu (Bld) [#/Vol]0.3 10*3/uL 0.0-0.8[facility] For RehabilitationMonocytes/100 WBC Auto (Bld)Ordered By: Fabiola Marinelli on 63-20-0335Wouqtangp/100 WBC (Bld)17.3 %.[facility] For RehabilitationNeutrophils Auto (Bld) [#/Vol]Ordered By: Fabiola Marinelli on 10-14-2022 Neutrophils (Bld) [#/Vol]1.0 10*3/uL1.8-7.7FOhioHealth Arthur G.H. Bing, MD, Cancer Center Neutrophils/100 WBC Auto (Bld)Ordered By: Fabiola Marinelli on 58-00-7431Pdswldpfwcd/100 WBC (Bld)55.1 %.[facility] For RehabilitationNo Panel InformationOrdered By: Fabiola Marinelli on 95-62-4367Jcutgtgei GFR ()> 60 mL/MinChildren'S Hospital For RehabilitationComment on above:GFR estimated reference range: According to KDOQI guidelines, <60 ml/min/1.73m2 is sufficient todiagnose a patient with chronic kidney disease.Pharmacy Creatinine Clearance (Chem69.70[facility]> 60 mL/MinChildren'S Hospital For Rehabilitation69.70 [facility] RehabilitationNucleated erythrocytes [Presence] in Blood by Automated countOrdered By: Fabiola Marinelli on 26-03-5022Fwxyvsvtx RBC Auto Ql (Bld)0.1 /100{WBC}0-0.5FOhioHealth Arthur G.H. Bing, MD, Cancer CenterPlatelet adequacy [Presence] in Blood by Light microscopyOrdered By: Fabiola Marinelli on 55-87-9477Ckcgwzbgp LM Ql (Bld)DecreasedNormWood County HospitalPlatelet mean volume Auto (Bld) [Entitic vol]Ordered By: Fabiola Marinelli on 25-00-1190Pzoufcju mean volume (Bld) [Entitic vol]9.3 fL6.3-10.7FOhioHealth Arthur G.H. Bing, MD, Cancer CenterPlatelet morphology finding [Identifier] in BloodOrdered By: Fabiola Marinelli on 78-62-6187Xcyxjeia morphology finding Nom (Bld)NormalNormWood County Hospital Platelets Auto (Bld) [#/Vol]Ordered By: Fabiola Marinelli on 73-64-5115Etjsvlkfp (Bld) [#/Vol]49 10*3/vX042-715WexcpfnmgChildren'S Hospital For RehabilitationPoikilocytosis [Presence] in Blood by Light microscopyOrdered By: Fabiola Marinelli on 10-14-2022 Poikilocytosis LM Ql (Bld)[facility] Children's HospitalPolychromasia [Presence] in Blood by Light microscopyOrdered By: Fabiola Marinelli on 10-14-2022 Polychromasia LM Ql (Bld)[facility]'s HospitalProtein [Mass/volume] in Serum or PlasmaOrdered By: Fabiola Marinelli on 81-18-9394Safmgjd [Mass/Vol]5.0 g/dL6.1-7.9[facility] For RehabilitationRBC Auto (Bld) [#/Vol] Ordered By: Fabiola Marinelli on 42-73-1724XXR (Bld) [#/Vol]2.98 10*6/uL3.60-5.00 [facility] For RehabilitationRB morphologyOrdered By: Fabiola Marinelli on 96-92-5482CXT morphology finding Nom (Bld)N/AFOhioHealth Arthur G.H. Bing, MD, Cancer Center Serum or plasma alanine aminotransferase measurement without P-5'-P (enzymatic activiOrdered By: Fabiola Marinelli on 08-19-4459SRF No additional P-5'-P [Catalytic activity/Vol]37 U/W78-52DvfrtrghoSumma Healtherum or plasma albumin/globulin mass ratioOrdered By: Fabiola Marinelli on 08-68-7175Qxiodwm/Globulin [Mass ratio]1.5 {ratio}Summa Healtherum or plasma alkaline phosphatase measurement (enzymatic activity/volume)Ordered By: Fabiola Marinelli on 66-59-0188ZZI [Catalytic activity/Vol]94 U/F94-16AyozgbleeSumma Healtherum or plasma anion gap determinationOrdered By: Fabiola Marinelli on 10-14-2022 Anion gap [Moles/Vol]12.6 mmol/L6.0-15.0Summa Healtherum or plasma aspartate aminotransferase measurement (enzymatic activity/volume) Ordered By: Fabiola Marinelli on 09-54-2092LWE [Catalytic activity/Vol]35 U/L10-42 Summa Healtherum or plasma calcium measurement (mass/volume)Ordered By: Fabiola Marinelli on 48-06-4359Clsoyhf [Mass/Vol]8.8 mg/dL 8.2-10.2FKettering Health Daytonerum or plasma chloride measurement (moles/volume)Ordered By: Fabiola Marinelli on 52-30-1120Alctktbn [Moles/Vol]102 mmol/L 95-114Summa Healtherum or plasma creatinine measurement with calculation of estimated glomerular filtrOrdered By: Fabiola Marinelli on 25-57-4089Drrhykigfg and Glomerular filtration rate.predicted panel (S/P/Bld) 0.43 mg/dL0.44-1.03Summa Healtherum or plasma glucose measurement (mass/volume)Ordered By: Fabiola Marinelli on 88-28-0508Invimmk [Mass/Vol] 132 mg/eE45-788HeikvakzzChildren'S Hospital For RehabilitationComment on above:ADA recommended reference rangeRandom Glucose Reference Range is dependent on time and content of last meal. Glucose of more than 200 mg/dL in a nonstressed, ambulatory subject supports the diagnosisof Diabetes Mellitus.Serum or plasma potassium measurement (moles/volume)Ordered By: Fabiola Marinelli on 86-15-6584Qtljvuadf [Moles/Vol]3.4 mmol/L3.5-5.1FKettering Health Daytonerum or plasma sodium measurement (moles/volume)Ordered By: Fabiola Marinelli on 94-85-0594Vpaehn [Moles/Vol]140 mmol/I397-398BotinwooxSumma Healtherum or plasma total bilirubin measurement (mass/volume)Ordered By: Fabiola Marinelli on 10-14-2022 Bilirubin [Mass/Vol]1.4 mg/dL0.3-1.2FOhioHealth Arthur G.H. Bing, MD, Cancer CenterComment on above:Samples from patients who have taken Naproxen have shown spurious elevation in Total Bilirubin levels. A metabolite of Naproxen, O- desmethylnaproxen, has been shown to interfere with the Jendrfrancik-Grof method for measuring Total Bilirubin.Serum or plasma total carbon dioxide measurement (moles/volume)Ordered By: Fabiola Marinelli on 76-21-7960GV0 [Moles/Vol]28.8 mmol/L 22.0-30.0Summa Healtherum or plasma urea nitrogen measurement (mass/volume)Ordered By: Fabiola Marinelli on 15-51-7289Qgoa nitrogen [Mass/Vol]12 mg/dL9-23Children[facility] Hospital For RehabilitationTeardrop cell detection Ordered By: Fabiola Marinelli on 66-32-3796Irmixsuuli LM Ql (Bld)SlightChildren'S Hospital For RehabilitationWBC Auto (Bld) [#/Vol]Ordered By: Fabiola Marinelli on 10-14-2022 WBC (Bld) [#/Vol]1.9 10*3/uL3.8-11.6FOhioHealth Arthur G.H. Bing, MD, Cancer Center Basophils/100 WBC Manual cnt (Bld)Ordered By: Fabiola Marinelli on 10-07-2022 Basophils/100 WBC (Bld)0 %0-2FOhioHealth Arthur G.H. Bing, MD, Cancer CenterEosinophils/100 WBC Manual cnt (Bld)Ordered By: Fabiola Marinelli on 10-91-3465Osjktulirwl/100 WBC (Bld) 0 %1-3FOhioHealth Arthur G.H. Bing, MD, Cancer CenterLymphocytes/100 WBC Manual cnt (Bld) Ordered By: Fabiola Marinelli on 49-41-0699Zhyfmjibeml/100 WBC (Bld)30 %18-42[facility] For RehabilitationMacrocytes LM Ql (Bld)Ordered By: Fabiola Marinelli on 10-07-2022 Macrocytes Ql (Bld)[facility] Children's HospitalMetamyelocytes/100 WBC Manual cnt (Bld)Ordered By: Fabiola Marinelli on 43-15-9574Ssyuthoputkdmx/100 WBC (Bld) 2 %0-0[facility] For RehabilitationMonocytes/100 WBC Manual cnt (Bld)Ordered By: Fabiola Marinelli on 85-39-9034Icxwgqzzc/100 WBC (Bld)8 %2-11[facility] For RehabilitationMyelocytes/100 WBC Manual cnt (Bld)Ordered By: Fabiola Marinelli on 67-41-5207Hyutsgcxdq/100 WBC (Bld)11 %0-0[facility] For RehabilitationNo Panel InformationOrdered By: Fabiola Marinelli on 63-75-3716Hoxwrm for Pathologist ReviewN/[facility] CenterN/[facility] Ovalocyte detectionOrdered By: Fabiola Marinelli on 11-35-2034Exfisxlixi LM Ql (Bld) [facility]'s HospitalPlasma cells/100 leukocytes in Blood by Manual countOrdered By: Fabiola Marinelli on 55-67-4370Pmwqon cells/100 WBC Manual cnt (Bld)1 %High0-0[facility] For RehabilitationPlasma cells/100 WBC Manual cnt (Bld)Plasma cells/100 leukocytes in Blood by Manual countHigh0-0[facility] For RehabilitationPlatelets Large [Presence] in Blood by Light microscopy Ordered By: Fabiola Marinelli on 80-67-0210Odlxvhmei Large LM Ql (Bld)[facility] Hospitalegmented neutrophils/100 WBC Manual cnt (Bld)Ordered By: Fabiola Marinelli on 28-73-2149Tfwixpujs neutrophils/100 WBC (Bld)48 %50-70[facility] For RehabilitationMicrocytes LM Ql (Bld)Ordered By: Fabiola Marinelli on 10-03-2022 Microcytes Ql (Bld)[facility]'s HospitalAnisocytosis LM Ql (Bld)Ordered By: Fabiola Marinelli on 92-62-0981Cnxsncvruarm Ql (Bld)[facility] HospitalBasophils Auto (Bld) [#/Vol]Ordered By: Fabiola Marinelli on 70-45-8675Vvoaxaoir (Bld) [#/Vol]0.0 10*3/uL0.0-0.2FOhioHealth Arthur G.H. Bing, MD, Cancer CenterBasophils/100 WBC Auto (Bld)Ordered By: Fabiola Marinelli on 09-23-2022 Basophils/100 WBC (Bld)0.1 %.[facility] For RehabilitationEosinophils Auto (Bld) [#/Vol]Ordered By: Fabiola Marinelli on 95-98-7725Pkboztbmtnz (Bld) [#/Vol]0.0 10*3/uL0.0-0.45[facility] For RehabilitationEosinophils/100 WBC Auto (Bld) Ordered By: Fabiola Marinelli on 87-07-7541Edopyyzdlnx/100 WBC (Bld)2.8 %.[facility] For RehabilitationErythrocyte distribution width Auto (RBC) [Ratio]Ordered By: Fabiola Marinelli on 03-05-1518Uhbhsxuupdp distribution width (RBC) [Ratio]17.2 % 11.9-15.3FOhioHealth Arthur G.H. Bing, MD, Cancer CenterHematocrit Auto (Bld) [Volume fraction]Ordered By: Fabiola Marinelli on 41-43-6047Xtiletnujv (Bld) [Volume fraction] 31.4 %34.0-46.4FOhioHealth Arthur G.H. Bing, MD, Cancer CenterHemoglobin [Mass/volume] in BloodOrdered By: Fabiola Marinelli on 16-74-8469Rxqobuwrdl (Bld) [Mass/Vol]10.4 g/dL 11.8-15.4FOhioHealth Arthur G.H. Bing, MD, Cancer CenterLaboratory - Hematology and Cell countsOrdered By: Fabiola Marinelli on 84-66-3563Drznuhnqa RBC/100 WBC (Bld) [Ratio]0.6 %0-0.5FOhioHealth Arthur G.H. Bing, MD, Cancer CenterLymphocytes Auto (Bld) [#/Vol]Ordered By: Fabiola Marinelli on 14-32-6448Vhyyinlqtqs (Bld) [#/Vol]0.5 10*3/uL1.00-4.8[facility] For RehabilitationLymphocytes/100 WBC Auto (Bld)Ordered By: Fabiola Marinelli on 75-60-2314Wkkadxzjpsn/100 WBC (Bld)29.2 %.[facility] Auto (RBC) [Entitic mass]Ordered By: Fabiola Marinelli on 15-81-0555RAX (RBC) [Entitic mass]34.4 pg24.7-34.3FOhioHealth Arthur G.H. Bing, MD, Cancer CenterMCHC Auto (RBC) [Mass/Vol] Ordered By: Fabiola Marinelli on 22-74-4573QDXC (RBC) [Mass/Vol]33.1 g/dL32.0-35.0 [facility] For RehabilitationMCV Auto (RBC) [Entitic vol]Ordered By: Fabiola Marinelli on 86-77-7612NAT (RBC) [Entitic vol]103.8 oW65-999DzkypljfgChildren'S Hospital For RehabilitationMacrocytes LM Ql (Bld)Ordered By: Fabiola Marinelli on 09-23-2022 Macrocytes Ql (Bld)SlightChildren'S Hospital For RehabilitationMonocytes Auto (Bld) [#/Vol]Ordered By: Fabiola Marinelli on 01-37-8454Qwfsmwxnt (Bld) [#/Vol]0.2 10*3/uL 0.0-0.8[facility] For RehabilitationMonocytes/100 WBC Auto (Bld)Ordered By: Fabiola Marinelli on 75-78-1683Vmwqghnje/100 WBC (Bld)14.6 %.[facility] For RehabilitationNeutrophils Auto (Bld) [#/Vol]Ordered By: Fabiola Marinelli on 09-23-2022 Neutrophils (Bld) [#/Vol]0.8 10*3/uL1.8-7.7FOhioHealth Arthur G.H. [facility], Cancer Center Neutrophils/100 WBC Auto (Bld)Ordered By: Fabiola Marinelli on 57-49-6457Wihzjnjfbvj/100 WBC (Bld)53.3 %.[facility] For RehabilitationNo Panel InformationOrdered By: Fabiola Marinelli on 21.6 10*3/uL4.5-11.0[facility] 0.6 %High0-0.5FOhioHealth Arthur G.H. Bing, MD, Cancer CenterOvalocyte detectionOrdered By: Fabiola Marinelli on 49-52-5325Wdztjyhclf LM Ql (Bld)[facility]'s HospitalPlatest. [facility] adequacy [Presence] in Blood by Light microscopyOrdered By: Fabiola Marinelli on 72-87-7191Fhcqwslfd LM Ql (Bld)DecreasedNormalChildren'S Hospital For RehabilitationPlatelet mean volume Auto (Bld) [Entitic vol]Ordered By: Fabiola Marinelli on 01-64-6859Fojbjetw mean volume (Bld) [Entitic vol]9.3 fL6.3-10.7FOhioHealth Arthur G.H. Bing, MD, Cancer CenterPlatelet morphology finding [Identifier] in BloodOrdered By: Fabiola Marinelli on 34-06-2238Nidcwnvn morphology finding Nom (Bld)NormalNormal [facility] For RehabilitationPlatelets Auto (Bld) [#/Vol]Ordered By: Fabiola Marinelli on 00-18-8466Miflnvtnc (Bld) [#/Vol]34 10*3/hS543-927FqyghtckhChildren'S Hospital For RehabilitationPoikilocytosis [Presence] in Blood by Light microscopyOrdered By: Fabiola Marinelli on 22-74-3650Xnwoyyztqtujro LM Ql (Bld)[facility]'s HospitalPolychromasia [Presence] in Blood by Light microscopyOrdered By: Fabiola Marinelli on 11-32-9994Fmekvvjgszgly LM Ql (Bld)[facility] HospitalRBC Auto (Bld) [#/Vol]Ordered By: Fabiola Marinelli on 22-26-4552TPO (Bld) [#/Vol]3.03 10*6/uL3.60-5.00[facility] morphology Ordered By: Fabiola Marinelli on 55-67-5120CZH morphology finding Nom (Bld)N/AFKettering Health Daytonchistocytes [Presence] in Blood by Light microscopy Ordered By: Fabiola Marinelli on 64-46-9848Uffmkucwmcgw LM Ql (Bld)[facility] HospitalTeardrop cell detectionOrdered By: Fabiola Marinelli on 75-90-1179Towyqiswud LM Ql (Bld)[facility] HospitalWBC Auto (Bld) [#/Vol]Ordered By: Fabiola Marinelli on 25-73-7233AKZ (Bld) [#/Vol]1.6 10*3/uL 3.8-11.6FOhioHealth Arthur G.H. Bing, MD, Cancer CenterAlbumin [Mass/volume] in Serum or PlasmaOrdered By: Fabiola Marinelli on 19-43-5607Pabvdro [Mass/Vol]3.0 g/dL3.2-5.5 [facility] For RehabilitationAnisocytosis LM Ql (Bld)Ordered By: Fabiola Marinelli on 49-58-1419Xbdspbgrgsto Ql (Bld)[facility] Basophils Auto (Bld) [#/Vol]Ordered By: Fabiola Marinelli on 62-79-9263Noworijsx (Bld) [#/Vol]0.0 10*3/uL0.0-0.2FOhioHealth Arthur G.H. Bing, MD, Cancer CenterBasophils/100 WBC Auto (Bld)Ordered By: Fabiola Marinelli on 93-37-0348Wapvumwhl/100 WBC (Bld)0.2 %.[facility] For RehabilitationEosinophils Auto (Bld) [#/Vol]Ordered By: Fabiola Marinelli on 89-75-2109Lrlskpxusbf (Bld) [#/Vol]0.0 10*3/uL0.0-0.45[facility] For RehabilitationEosinophils/100 WBC Auto (Bld)Ordered By: Fabiola Marinelli on 09-16-2022 Eosinophils/100 WBC (Bld)2.0 %.[facility] For RehabilitationErythrocyte distribution width Auto (RBC) [Ratio]Ordered By: Fabiola Marinelli on 09-16-2022 Erythrocyte distribution width (RBC) [Ratio]17.8 %11.9-15.3FOhioHealth Arthur G.H. Bing, MD, Cancer CenterEstimated glomerular filtration rate (GFR) non- Ordered By: Fabiola Marinelli on 76-33-5673BSU/1.73 sq M.predicted among non-blacks MDRD (S/P/Bld) [Vol rate/Area]> 60 mL/MinChildren'S Hospital For RehabilitationGlobulin Calc (S) [Mass/Vol]Ordered By: Fabiola Marinelli on 81-63-8835Pagneiaa (S) [Mass/Vol]1.8 g/dLChildren'S Hospital For RehabilitationHematocrit Auto (Bld) [Volume fraction] Ordered By: Fabiola Marinelli on 58-48-4048Nriognnjie (Bld) [Volume fraction]31.3 % 34.0-46.4FOhioHealth Arthur G.H. Bing, MD, Cancer CenterHemoglobin [Mass/volume] in Blood Ordered By: Fabiola Marinelli on 07-15-0714Uycftscbem (Bld) [Mass/Vol]10.4 g/dL11.8-15.4 [facility] For RehabilitationLymphocytes Auto (Bld) [#/Vol]Ordered By: Fabiola Marinelli on 58-70-1185Gerugusrigk (Bld) [#/Vol]0.5 10*3/uL1.00-4.8[facility] For RehabilitationLymphocytes/100 WBC Auto (Bld)Ordered By: Fabiola Marinelli on 34-97-9115Vnocmnvediv/100 WBC (Bld)35.7 %.[facility] CenterH Auto (RBC) [Entitic mass]Ordered By: Fabiola Marinelli on 05-39-1484ZNS (RBC) [Entitic mass]34.4 pg24.7-34.3FOhioHealth Arthur G.H. Bing, MD, Cancer CenterMCHC Auto (RBC) [Mass/Vol] Ordered By: Fabiola Marinelli on 12-52-7225JVXR (RBC) [Mass/Vol]33.3 g/dL32.0-35.0 [facility] For RehabilitationMCV Auto (RBC) [Entitic vol]Ordered By: Fabiola Marinelli on 92-74-6096GKC (RBC) [Entitic vol]103.3 jD91-391LwyrbutdaChildren'S Hospital For RehabilitationMacrocytes LM Ql (Bld)Ordered By: Fabiola Marinelli on 09-16-2022 Macrocytes Ql (Bld)SlightChildren'S Hospital For RehabilitationMonocytes Auto (Bld) [#/Vol]Ordered By: Fabiola Marinelli on 80-32-7034Knfobyegr (Bld) [#/Vol]0.2 10*3/uL 0.0-0.8[facility] For RehabilitationMonocytes/100 WBC Auto (Bld)Ordered By: Fabiola Marinelli on 92-42-2619Cqvsruyrd/100 WBC (Bld)16.8 %.[facility] For RehabilitationNeutrophils Auto (Bld) [#/Vol]Ordered By: Fabiola Marinelli on 09-16-2022 Neutrophils (Bld) [#/Vol]0.6 10*3/uL1.8-7.7FOhioHealth Arthur G.[facility]. [facility] Cancer Center Neutrophils/100 WBC Auto (Bld)Ordered By: Fabiola Marinelli on 96-79-3725Uqjsrrniksz/100 WBC (Bld)45.3 %.[facility] For RehabilitationNo Panel InformationOrdered By: Fabiola Marinelli on 21.4 10*3/uL4.5-11.0[facility] 0.1 %0-0.5FOhioHealth Arthur G.H. [facility], MD, Cancer Center> 60 mL/MinChildren'S Hospital For Rehabilitation69.98[facility] For RehabilitationPlatelet adequacy [Presence] in Blood by Light microscopyOrdered By: Fabiola Marinelli on 35-21-4736Bblqqruub LM Ql (Bld)DecreasedNormWood County HospitalPlatelet mean volume Auto (Bld) [Entitic vol]Ordered By: Fabiola Marinelli on 21-22-6984Weghidam mean volume (Bld) [Entitic vol]8.4 fL6.3-10.7FOhioHealth Arthur G.H. Bing, MD, Cancer CenterPlatelet morphology finding [Identifier] in BloodOrdered By: Fabiola Marinelli on 83-38-4926Iicmbvyy morphology finding Nom (Bld)NormalNormWood County Hospital Platelets Auto (Bld) [#/Vol]Ordered By: Fabiola Marinelli on 48-36-3900Jkhpzdggt (Bld) [#/Vol]43 10*3/fG003-721RxoesrbtxChildren'S Hospital For RehabilitationPolychromasia [Presence] in Blood by Light microscopyOrdered By: Fabiola Marinelli on 09-16-2022 Polychromasia LM Ql (Bld)SlightChildren'S Hospital For RehabilitationProtein [Mass/volume] in Serum or PlasmaOrdered By: Fabiola Marinelli on 64-14-0458Frcqlrc [Mass/Vol]4.8 g/dL6.1-7.9[facility] For RehabilitationRB Auto (Bld) [#/Vol] Ordered By: Fabiola Marinelli on 89-01-9432BLR (Bld) [#/Vol]3.04 10*6/uL3.60-5.00 [facility] morphologyOrdered By: Fabiola Marinelli on 01-64-5731PBR morphology finding Nom (Bld)N/AFOhioHealth Arthur G.H. Bing, MD, Cancer Center Serum or plasma alanine aminotransferase measurement without P-5'-P (enzymatic activiOrdered By: Fabiola Marinelli on 74-33-4063JDJ No additional P-5'-P [Catalytic activity/Vol]29 U/G23-85FesebkebrSumma Healtherum or plasma albumin/globulin mass ratioOrdered By: Fbaiola Marinelli on 63-60-5741Hpvagsq/Globulin [Mass ratio]1.7 {ratio}Summa Healtherum or plasma alkaline phosphatase measurement (enzymatic activity/volume)Ordered By: Fabiola Marinelli on 86-31-6328MEM [Catalytic activity/Vol]97 U/J03-79AijrarhlwSumma Healtherum or plasma anion gap determinationOrdered By: Fabiola Marinelli on 09-16-2022 Anion gap [Moles/Vol]8.8 mmol/L6.0-15.0Summa Healtherum or plasma aspartate aminotransferase measurement (enzymatic activity/volume) Ordered By: Fabiola Marinelli on 79-58-5234SBB [Catalytic activity/Vol]32 U/L10-42 Summa Healtherum or plasma calcium measurement (mass/volume)Ordered By: Fabiola Marinelli on 50-62-9671Koezato [Mass/Vol]8.4 mg/dL 8.2-10.2FKettering Health Daytonerum or plasma chloride measurement (moles/volume)Ordered By: Fabiola Marinelli on [id number] [Moles/Vol]105 mmol/L 95-114[facility] or plasma creatinine measurement with calculation of estimated glomerular filtrOrdered By: Fabiola Marinelli on 41-41-5804Dicszezmmd and Glomerular filtration rate.predicted panel (S/P/Bld) 0.43 mg/dL0.44-1.03[facility] or plasma glucose measurement (mass/volume)Ordered By: Fabiola Marinelli on 27-98-3006Szlizfi [Mass/Vol] 102 mg/lJ88-870QjhumttyaSumma Healtherum or plasma potassium measurement (moles/volume)Ordered By: Fabiola Marinelli on 95-03-4811Kdhiuoaxb [Moles/Vol]3.6 mmol/L3.5-5.1FKettering Health Daytonerum or plasma sodium measurement (moles/volume)Ordered By: Fabiola Marinelli on 39-66-6493Uczhom [Moles/Vol]137 mmol/W972-842NauvwrxoySumma Healtherum or plasma total bilirubin measurement (mass/volume)Ordered By: Fabiola Marinelli on 09-16-2022 Bilirubin [Mass/Vol]1.0 mg/dL0.3-1.2FKettering Health Daytonerum or plasma total carbon dioxide measurement (moles/volume)Ordered By: Fabiola Marinelli on 07-65-3857DF7 [Moles/Vol]26.8 mmol/L22.0-30.0[facility] Serum or plasma urea nitrogen measurement (mass/volume)Ordered By: Fabiola Marinelli on 38-39-3239Snxy nitrogen [Mass/Vol]12 mg/dL9-23[facility] WBC Auto (Bld) [#/Vol]Ordered By: Fabiola Marinelli on 69-44-0368JDN (Bld) [#/Vol]1.4 10*3/uL3.8-11.6FOhioHealth Arthur G.H. Bing, MD, Cancer CenterBand form neutrophils/100 WBC Manual cnt (Bld)Ordered By: Fabiola Marinelli on 83-32-8855Edus form neutrophils/100 WBC (Bld)1 %0-5FOhioHealth Arthur G.H. Bing, MD, Cancer CenterEosinophils/100 WBC Manual cnt (Bld)Ordered By: Fabiola Marinelli on 41-79-1983Lthpyjnzrvf/100 WBC (Bld)1 %1-3FOhioHealth Arthur G.H. Bing, MD, Cancer CenterIgA [Mass/volume] in Serum or PlasmaOrdered By: Fabiola Marinelli on 08-09-0811LgH [Mass/Vol]20 mg/hW86-343SuowujnucChildren'S Hospital For Rehabilitation Comment on above:Result confirmed on concentration.IgG [Mass/volume] in Serum or PlasmaOrdered By: Fabiola Marinelli on 32-72-9117XrN [Mass/Vol]323 mg/tO334-5185 [facility] For RehabilitationIgM [Mass/volume] in Serum or PlasmaOrdered By: Fabiola Marinelli on 46-18-2745VbK [Mass/Vol]8 mg/zL27-860FeynubhtqChildren'S Hospital For RehabilitationComment on above:Result confirmed on concentration.Performed at: [id number] [employer] [id number] Director: Lang Knight PhD, Phone: [phone] light chains.kappa.free [Mass/volume] in SerumOrdered By: Fabiola Marinelli on 56-20-3759Fkigiujgdqhglu light chains.kappa.free (S) [Mass/Vol]6.5 mg/L3.3-19.4FOhioHealth Arthur G.H. Bing, MD, Cancer CenterImmunoglobulin light chains.kappa.free/Immunoglobulin light chains.lambda.free [MassOrdered By: Fabiola Marinelli on 91-36-5045Lvrfajmqeaslfe light chains.kappa.free/Immunoglobulin light chains.lambda.free (S) [Mass ratio]0.15 0.26-1.65[facility] For RehabilitationComment on above:Performed at: [id number] [employer] [id number] Director: Lang Knight PhD, Phone: [phone] light chains.lambda.free [Mass/volume] in Serum or PlasmaOrdered By: Fabiola Marinelli on 09-12-2022 Immunoglobulin light chains.lambda.free [Mass/Vol]44.3 mg/L5.7-26.3FOhioHealth Arthur G.H. Bing, MD, Cancer CenterLymphocytes/100 WBC Manual cnt (Bld)Ordered By: Fabiola Marinelli on 16-22-2326Vleqpmafmje/100 WBC (Bld)43 %18-42[facility] For RehabilitationMetamyelocytes/100 WBC Manual cnt (Bld)Ordered By: Fabiola Marinelli on 09-12-2022 Metamyelocytes/100 WBC (Bld)1 %0-0[facility] RehabilitationMonocytes/100 WBC Manual cnt (Bld)Ordered By: Fabiola Marinelli on 23-79-8380Utnxvjiyo/100 WBC (Bld) 13 %2-11[facility] For RehabilitationOvalocyte detectionOrdered By: Fabiola Marinelli on 49-65-5472Cimyjlfhwo LM Ql (Bld)[facility] Platelets Large [Presence] in Blood by Light microscopyOrdered By: Fabiola Marinelli on 28-50-9031Vgigkgwir Large LM Ql (Bld)[facility] Schistocytes [Presence] in Blood by Light microscopyOrdered By: Fabiola Marinelli on 18-74-0986Bimgyuzsdswg LM Ql (Bld)[facility] Segmented neutrophils/100 WBC Manual cnt (Bld)Ordered By: Fabiola Marinelli on 85-11-7292Ulyuhxstl neutrophils/100 WBC (Bld)38 %50-70[facility] RehabilitationVariant lymphocytes/100 WBC Manual cnt (Bld)Ordered By: Fabiola Marinelli on 44-03-9747Iwttkbq lymphocytes/100 WBC (Bld)3 %0-12[facility] RehabilitationVariant lymphocytes/100 WBC (Bld)Variant lymphocytes/100 leukocytes in Blood by Manual count0-[facility] For RehabilitationPoikilocytosis [Presence] in Blood by Light microscopyOrdered By: Fabiola Marinelli on 09-09-2022 Poikilocytosis LM Ql (Bld)[facility] HospitalTeardrop cell detectionOrdered By: Fabiola Marinelli on 93-38-9001Jgbbjuzzkh LM Ql (Bld)[facility] CenterAlbumin [Mass/volume] in Serum or PlasmaOrdered By: Fabiola Marinelli on 48-22-0539Dnoosaf [Mass/Vol]3.0 g/dL3.2-5.5FOhioHealth Arthur G.H. Bing, MD, Cancer CenterBasophils Auto (Bld) [#/Vol]Ordered By: Fabiola Marinelli on 08-19-2022 Basophils (Bld) [#/Vol]0.0 10*3/uL0.0-0.2FOhioHealth Arthur G.H. [facility], MD, Cancer Center Basophils/100 WBC Auto (Bld)Ordered By: Fabiola Marinelli on 73-91-3890Vatiygfrx/100 WBC (Bld)0.2 %.[facility] For RehabilitationEosinophils Auto (Bld) [#/Vol] Ordered By: Fabiola Marinelli on 84-09-7802Rvnkkvtjxfc (Bld) [#/Vol]0.0 10*3/uL0.0-0.45 [facility] RehabilitationEosinophils/100 WBC Auto (Bld)Ordered By: Fabiola Marinelli on 56-28-3669Hwxrywrcvko/100 WBC (Bld)1.7 %.[facility] For RehabilitationErythrocyte distribution width Auto (RBC) [Ratio]Ordered By: Fabiola Marinelli on 64-12-2158Uixohwbfqwj distribution width (RBC) [Ratio]17.6 %11.9-15.3FOhioHealth Arthur G.H. Bing, MD, Cancer CenterEstimated glomerular filtration rate (GFR) non- AmericanOrdered By: Fabiola Marinelli on 83-51-2352ZJW/1.73 sq M.predicted among non- blacks MDRD (S/P/Bld) [Vol rate/Area]> 60 mL/MinChildren'S Hospital For RehabilitationGlobulin Calc (S) [Mass/Vol]Ordered By: Fabiola Marinelli on 69-39-6318Dwtcxwcc (S) [Mass/Vol]2.0 g/dLChildren'S Hospital For RehabilitationHematocrit Auto (Bld) [Volume fraction]Ordered By: Fabiola Marinelli on 43-36-5776Cxlwatlckx (Bld) [Volume fraction]33.7 %34.0-46.4FOhioHealth Arthur G.H. Bing, MD, Cancer CenterHemoglobin [Mass/volume] in BloodOrdered By: Fabiola Marinelli on 99-24-5153Tacmdutbas (Bld) [Mass/Vol]11.1 g/dL11.8-15.4FOhioHealth Arthur G.H. Bing, MD, Cancer CenterLymphocytes Auto (Bld) [#/Vol]Ordered By: Fabiola Marinelli on 18-45-8818Ifmjygigzsc (Bld) [#/Vol]0.7 10*3/uL1.00-4.8[facility] For RehabilitationLymphocytes/100 WBC Auto (Bld) Ordered By: Fabiola Marinelli on 51-86-2145Evfzkodqssr/100 WBC (Bld)34.8 %.[facility] For RehabilitationMCH Auto (RBC) [Entitic mass]Ordered By: Fabiola Marinelli on 02-65-4289ICV (RBC) [Entitic mass]33.3 pg24.7-34.3FOhioHealth Arthur G.H. Bing, MD, Cancer CenterMCHC Auto (RBC) [Mass/Vol]Ordered By: Fabiola Marinelli on 71-71-9204JRBW (RBC) [Mass/Vol]33.0 g/dL32.0-35.0[facility] For RehabilitationMCV Auto (RBC) [Entitic vol]Ordered By: Fabiola Marinelli on 65-87-7692TUD (RBC) [Entitic vol]101.0 fL 80-100[facility] For RehabilitationMonocytes Auto (Bld) [#/Vol]Ordered By: Fabiola Marinelli on 12-41-7355Kkfvlcigk (Bld) [#/Vol]0.2 10*3/uL0.0-0.8[facility] RehabilitationMonocytes/100 WBC Auto (Bld)Ordered By: Fabiola Marinelli on 20-27-1248Nwvtnacxe/100 WBC (Bld)12.9 %.[facility] Neutrophils Auto (Bld) [#/Vol]Ordered By: Fabiola Marinelli on 42-04-2136Eqrqylrknjl (Bld) [#/Vol]1.0 10*3/uL1.8-7.7FOhioHealth Arthur G.H. Bing, MD, Cancer CenterNeutrophils/100 WBC Auto (Bld)Ordered By: Fabiola Marinelli on 00-13-2834Jvehtodfqqt/100 WBC (Bld)50.4 % .[facility] For RehabilitationNo Panel InformationOrdered By: Fabiola Marinelli on 21.9 10*3/uL4.5-11.0[facility]0.3 %0-0.5 [facility]> 60 mL/MinChildren'S Hospital For Rehabilitation 124.92[facility] For RehabilitationPlatelet mean volume Auto (Bld) [Entitic vol]Ordered By: Fabiola Marinelli on 53-37-3926Etzvnnyx mean volume (Bld) [Entitic vol] 9.5 fL6.3-10.7FOhioHealth Arthur G.H. Bing, MD, Cancer CenterPlatelets Auto (Bld) [#/Vol] Ordered By: Fabiola Marinelli on 68-70-4577Pkajmrjmk (Bld) [#/Vol]56 10*3/vX274-792 [facility] RehabilitationProtein [Mass/volume] in Serum or PlasmaOrdered By: Fabiola Marinelli on 40-80-3823Qbgbqvk [Mass/Vol]5.0 g/dL6.1-7.9[facility] For RehabilitationRBC Auto (Bld) [#/Vol]Ordered By: Fabiola Marinelli on 57-66-5269GTA (Bld) [#/Vol]3.34 10*6/uL3.60-5.00Summa Healtherum or plasma alanine aminotransferase measurement without P-5'-P (enzymatic activiOrdered By: Fabiola Marinelli on 38-89-3313DUP No additional P-5'-P [Catalytic activity/Vol]28 U/L 1060Summa Healtherum or plasma albumin/globulin mass ratioOrdered By: Fabiola Marinelli on 60-45-9874Scwcthg/Globulin [Mass ratio]1.5 {ratio} [facility] Healtherum or plasma alkaline phosphatase measurement (enzymatic activity/volume)Ordered By: Fabiola Marinelli on 46-44-0115JDL [Catalytic activity/Vol]107 U/I52-71SeepnibezSumma Healtherum or plasma anion gap determinationOrdered By: Fabiola Marinelli on 99-37-3959Kokjq gap [Moles/Vol]10.1 mmol/L6.0-15.0Sum[facility] Healtherum or plasma aspartate aminotransferase measurement (enzymatic activity/volume)Ordered By: Fabiola Marinelli on 06-52-6233SAO [Catalytic activity/Vol]25 U/Q25-39VfcqfwxcmSumma Healtherum or plasma calcium measurement (mass/volume)Ordered By: Fabiola Marinelli on 32-11-7240Cwhssgd [Mass/Vol]9.3 mg/dL8.2-10.2FKettering Health Daytonerum or plasma chloride measurement (moles/volume)Ordered By: Fabiola Marinelli on 14-13-8154Pnolxzdd [Moles/Vol]105 mmol/Z02-520XtasgjjieSumma Healtherum or plasma creatinine measurement with calculation of estimated glomerular filtrOrdered By: Fabiola Marinelli on 42-07-1459Ecvajzwcth and Glomerular filtration rate.predicted panel (S/P/Bld)0.46 mg/dL0.44-1.03[facility] Healtherum or plasma glucose measurement (mass/volume)Ordered By: Fabiola Marinelli on 09-39-5521Necisuz [Mass/Vol]141 mg/zJ49-153TvwxgogthSumma Healtherum or plasma potassium measurement (moles/volume)Ordered By: Fabiola Marinelli on 59-93-5644Iwjdhsfzz [Moles/Vol]3.7 mmol/L3.5-5.1FKettering Health Daytonerum or plasma sodium measurement (moles/volume)Ordered By: Fabiola Marinelli on 45-05-2266Rufeun [Moles/Vol]138 mmol/D053-668SomxxnokgChildren'S Hospital For Rehabilitation Serum or plasma total bilirubin measurement (mass/volume)Ordered By: Fabiola Marinelli on 10-02-3476Iyjvoeulv [Mass/Vol]1.1 mg/dL0.3-1.2FKettering Health Daytonerum or plasma total carbon dioxide measurement (moles/volume)Ordered By: Fabiola Marinelli on 79-85-8389JE5 [Moles/Vol]26.6 mmol/L22.0-30.0Summa Healtherum or plasma urea nitrogen measurement (mass/volume)Ordered By: Fabiola Marinelli on 78-81-4308Tfca nitrogen [Mass/Vol]14 mg/dL9-23[facility] RehabilitationWBC Auto (Bld) [#/Vol]Ordered By: Fabiola Marinelli on 46-08-3638TTF (Bld) [#/Vol]1.9 10*3/uL3.8-11.6FOhioHealth Arthur G.H. Bing, MD, Cancer CenterBlood anisocytosis detectionOrdered By: Fabiola Marinelli on 65-02-2874Zfyzjawnuvnb Ql (Bld)SlightChildren'S Hospital For RehabilitationMacrocytes detectionOrdered By: Fabiola Marinelli on 08-15-2022 Macrocytes Ql (Bld)ModerateChildren'S Hospital For RehabilitationNo Panel Information Ordered By: Fabiola Marinelli on 25-72-4945YaszrnThnzjkvikChildren'S Hospital For Rehabilitation DecreasedNormWood County HospitalNormalNormWood County HospitalRBC morphologyOrdered By: Fabiola Marinelli on 52-76-8922JSD morphology finding Nom (Bld)N/AFOhioHealth Arthur G.H. Bing, MD, Cancer CenterBasophils Auto (Bld) [#/Vol]Ordered By: Fabiola Marinelli on 12-97-1512Dmsvngjvb (Bld) [#/Vol]0.0 10*3/uL 0.0-0.2FOhioHealth Arthur G.H. Bing, MD, Cancer CenterBasophils/100 WBC Auto (Bld)Ordered By: Fabiola Marinelli on 18-10-2352Ivvhgsgzs/100 WBC (Bld)0.2 %.[facility] RehabilitationBlood hemoglobin measurement (mass/volume)Ordered By: Fabiola Marinelli on 76-04-4316Xnpiazmazl (Bld) [Mass/Vol]10.5 g/dL11.8-15.4FOhioHealth Arthur G.H. Bing, MD, Cancer CenterBlwindom area hospital leukocytes automated count (number/volume)Ordered By: Fabiola Marinelli on 80-80-9016DFV (Bld) [#/Vol]1.7 10*3/uL4.5-11.0[facility] For RehabilitationEosinophils Auto (Bld) [#/Vol]Ordered By: Fabiola Marinelli on 08-12-2022 Eosinophils (Bld) [#/Vol]0.0 10*3/uL0.0-0.45[facility] Eosinophils/100 WBC Auto (Bld)Ordered By: Fabiola Marinelli on 12-31-9982Afyvzjqavdf/100 WBC (Bld)2.3 %.[facility] For RehabilitationErythrocyte distribution width Auto (RBC) [Ratio]Ordered By: Fabiola Marinelli on 74-81-0036Sfgltdpvndo distribution width (RBC) [Ratio]17.2 %11.9-15.3FOhioHealth Arthur G.H. Bing, MD, Cancer CenterHematocrit Auto (Bld) [Volume fraction]Ordered By: Fabiola Marinelli on 98-37-9351Kosiiqacov (Bld) [Volume fraction]31.3 %34.0-46.4FOhioHealth Arthur G.H. Bing, MD, Cancer CenterLaboratory - Hematology and Cell countsOrdered By: Fabiola Marinelli on 81-75-8667Sbdssejfv RBC/100 WBC (Bld) [Ratio]0.2 %0-0.5FOhioHealth Arthur G.H. Bing, MD, Cancer CenterLymphocytes Auto (Bld) [#/Vol]Ordered By: Fabiola Marinelli on 14-21-5904Vzhlnafrzvb (Bld) [#/Vol]0.6 10*3/uL1.00-4.8[facility] For RehabilitationLymphocytes/100 WBC Auto (Bld) Ordered By: Fabiola Marinelli on 53-87-1782Wjeqngaehkc/100 WBC (Bld)34.2 %.[facility] For RehabilitationMCH Auto (RBC) [Entitic mass]Ordered By: Fabiola Marinelli on 05-64-7537YLM (RBC) [Entitic mass]33.7 pg24.7-34.3FOhioHealth Arthur G.H. Bing, MD, Cancer CenterMCHC Auto (RBC) [Mass/Vol]Ordered By: Fabiola Marinelli on 81-35-2937LPJN (RBC) [Mass/Vol]33.5 g/dL32.0-35.0[facility] For RehabilitationMCV Auto (RBC) [Entitic vol]Ordered By: Fabiola Marinelli on 11-09-2887GXF (RBC) [Entitic vol]100.7 fL 80-100[facility] For RehabilitationMacrocytes detectionOrdered By: Fabiola Marinelli on 25-83-6393Bsguhtjdvw Ql (Bld)SlightChildren'S Hospital For RehabilitationMonocytes Auto (Bld) [#/Vol]Ordered By: Fabiola Marinelli on 75-82-5334Koiwpjqaf (Bld) [#/Vol]0.2 10*3/uL0.0-0.8[facility] RehabilitationMonocytes/100 WBC Auto (Bld) Ordered By: Fabiola Marinelli on 74-25-5835Iouvcnkvy/100 WBC (Bld)10.8 %.[facility] For RehabilitationNeutrophils Auto (Bld) [#/Vol]Ordered By: Fabiola Marinelli on 67-36-3580Tigwhpunnfw (Bld) [#/Vol]0.9 10*3/uL1.8-7.7FOhioHealth Arthur G.H. Bing, MD, Cancer CenterNeutrophils/100 WBC Auto (Bld)Ordered By: Fabiola Marinelli on 08-12-2022 Neutrophils/100 WBC (Bld)52.5 %.[facility] For RehabilitationNo Panel InformationOrdered By: Fabiola Marinelli on 06-58-4253Quetvmqn EstimateDecreasedNormal [facility] For RehabilitationPlatelet Morphology CommentNormalNormal [facility] For RehabilitationPlatelet mean volume Auto (Bld) [Entitic vol] Ordered By: Fabiola Marinelli on 51-54-4693Hudfhzau mean volume (Bld) [Entitic vol]10.1 fL6.3-10.7FOhioHealth Arthur G.H. Bing, MD, Cancer CenterPlatelets Auto (Bld) [#/Vol]Ordered By: Fabiola Marinelli on 38-12-9046Melphupgy (Bld) [#/Vol]41 10*3/lH034-753FpiwueztiChildren'S Hospital For RehabilitationComment on above:Results calledat 1530 on 08/12/22 --- 08/12/22 1530 ---Plt previously reported as: 41 L x10E3/uLRBC Auto (Bld) [#/Vol] Ordered By: Fabiola Marinelli on 53-67-8946NSM (Bld) [#/Vol]3.11 10*6/uL3.60-5.00 [facility] For RehabilitationRBC morphologyOrdered By: Fabiola Marinelli on 06-00-2465QZY morphology finding Nom (Bld)N/AFOhioHealth Arthur G.H. Bing, MD, Cancer Center Blood anisocytosis detectionOrdered By: Fabiola Marinelli on 26-52-6788Mdeycugswmjo Ql (Bld)[facility] HospitalOvalocyte detectionOrdered By: Fabiola Marinelli on 02-05-3203Rysowsgkxq LM Ql (Bld)[facility] US Venous, Unilat, Lower Ext Righton 50-51-0729GR Venous, Unilat, Lower Ext RightCLINICAL HISTORY: Right [...] and signed by Emely Lund on 08/07/2022 1431NoParkview Health [facility] SpecialistBlwindom area hospital polychromasia detection by light microscopyOrdered By: Fabiola Marinelli on 23-02-5614Rqqgwfxhmivpl LM Ql (Bld)[facility] HospitalHypochromia detectionOrdered By: Fabiola Marinelli on 08-05-2022 Hypochromia Ql (Bld)[facility] HospitalNo Panel Information Ordered By: Fabiola Marinelli on 40-84-3805Yzpmtyas CellModerateChildren'S Hospital For RehabilitationModerateChildren'S Hospital For RehabilitationNo Panel Information Ordered By: Fabiola Marinelli on 14-57-5610XszuelfpjecgebWtrigcCmjtkvtzw [facility] Medical CenterNo Panel InformationOrdered By: Fabiola Marinelli on 68-88-1297Cpzad PlateletsSHCA Florida Poinciana HospitalLymphocytes/100 WBC Auto (Bld)Ordered By: Fabiola Marinelli on 07-25-2022 Lymphocytes/100 WBC (Bld)15 %18-42[facility] For RehabilitationMonocytes/100 WBC Manual cnt (Bld)Ordered By: Fabiola Marinelli on 35-80-4184Nuihdolgx/100 WBC (Bld)7 %2-11Summa Healthegmented neutrophils/100 WBC Manual cnt (Bld)Ordered By: Fabiola Marinelli on 62-05-1384Jhasfhwdx neutrophils/100 WBC (Bld)78 % 50-70[facility] For RehabilitationAlbumin [Mass/volume] in Serum or Plasma Ordered By: Fabiola Marinelli on 33-07-7015Tqtfwso [Mass/Vol]3.2 g/dL3.2-5.5FOhioHealth Arthur G.H. Bing, MD, Cancer CenterCreatinine and Glomerular filtration rate.predicted panel (S/P/Bld)Ordered By: Fabiola Marinelli on 38-31-3235Zvapuyocmv [Mass/Vol]0.47 mg/dL 0.44-1.03[facility] RehabilitationEstimated glomerular filtration rate (GFR) non- AmericanOrdered By: Fabiola Marinelli on 58-36-7399HFU/1.73 sq M.predicted among non-blacks MDRD (S/P/Bld) [Vol rate/Area]> 60 mL/MinChildren'S Hospital For RehabilitationGlobulin Calc (S) [Mass/Vol]Ordered By: Fabiola Marinelli on 15-71-7043Cjezfuhj (S) [Mass/Vol]2.0 g/dLChildren'S Hospital For RehabilitationNo Panel InformationOrdered By: Fabiola Marinelli on 65-17-0456Lofhmhbtl GFR ()> 60 mL/MinChildren'S Hospital For RehabilitationComment on above:GFR estimated reference range: According to KDOQI guidelines, <60 ml/min/1.73m2 is sufficient todiagnose a patient with chronic kidney disease.Pharmacy Creatinine Clearance (Tbrs128.27[facility] RehabilitationProtein [Mass/volume] in Serum or PlasmaOrdered By: Fabiola Marinelli on 09-84-9497Ojpfhjv [Mass/Vol]5.2 g/dL 6.1-7.9Summa Healtherum or plasma alanine aminotransferase measurement without P-5'-P (enzymatic activiOrdered By: Fabiola Marinelli on 07-23-2022 ALT No additional P-5'-P [Catalytic activity/Vol]26 U/I03-79JwlrajsqwSumma Healtherum or plasma albumin/globulin mass ratioOrdered By: Fabiola Marinelli on 07-78-5373Davnili/Globulin [Mass ratio]1.6 {ratio}[facility] Healtherum or plasma alkaline phosphatase measurement (enzymatic activity/volume)Ordered By: Fabiola Marinelli on 48-12-7430KFJ [Catalytic activity/Vol] 95 U/G31-97GblnuyfskSumma Healtherum or plasma anion gap determinationOrdered By: Fabiola Marinelli on 97-75-2548Cnnnl gap [Moles/Vol]12.1 mmol/L 6.0-15.0Summa Healtherum or plasma aspartate aminotransferase measurement (enzymatic activity/volume)Ordered By: Fabiola Marinelli on 15-67-0917DTL [Catalytic activity/Vol]29 U/O15-25JoxzkinfgSumma Healtherum or plasma calcium measurement (mass/volume)Ordered By: Fabiola Marinelli on 79-67-6556Aiastqi [Mass/Vol]9.0 mg/dL8.2-10.2FOhioHealth Arthur G.H. [facility], [facility] Center Serum or plasma chloride measurement (moles/volume)Ordered By: Fabiola Marinelli on 25-35-4535Gposoarg [Moles/Vol]103 mmol/N42-869OqygmljjsChildren'S Hospital For Rehabilitation Serum or plasma glucose measurement (mass/volume)Ordered By: Fabiola Marinelli on 70-40-6034Cwjohsq [Mass/Vol]121 mg/vB11-807KqlyybjckChildren'S Hospital For Rehabilitation Comment on above:ADA recommended reference rangeRandom Glucose Reference Range is dependent on time and content of last meal. Glucose of more than 200 mg/dL in a nonstressed, ambulatory subject supports the diagnosisof Diabetes Mellitus. Serum or plasma potassium measurement (moles/volume)Ordered By: Fabiola Marinelli on 68-36-7524Olhuizbnb [Moles/Vol]3.5 mmol/L3.5-5.1FKettering Health Daytonerum or plasma sodium measurement (moles/volume)Ordered By: Fabiola Marinelli on 19-07-5344Ejtaln [Moles/Vol]138 mmol/O723-848IhfahrtedChildren'S Hospital For Rehabilitation Serum or plasma total bilirubin measurement (mass/volume)Ordered By: Fabiola Marinelli on 62-16-9193Kqgoysrhk [Mass/Vol]1.3 mg/dL0.3-1.2FOhioHealth Arthur G.H. Bing, MD, Cancer CenterComment on above:Samples from patients who have taken Naproxen have shown spurious elevation in Total Bilirubin levels. A metabolite of Naproxen, O- desmethylnaproxen, has been shown to interfere with the Tkik-Felicitas method for measuring Total Bilirubin.Serum or plasma total carbon dioxide measurement (moles/volume)Ordered By: Fabiola Marinelli on 10-31-7798TT9 [Moles/Vol]26.4 mmol/L 22.0-30.0Summa Healtherum or plasma urea nitrogen measurement (mass/volume)Ordered By: Fabiola Marinelli on 14-75-9937Skbh nitrogen [Mass/Vol]10 mg/dL9-23[facility] For RehabilitationAlbumin [Mass/volume] in Serum or PlasmaOrdered By: Fabiola Marinelli on 57-14-7066Cwbhjto [Mass/Vol]3.1 g/dL 3.2-5.5FOhioHealth Arthur G.H. Bing, MD, Cancer CenterBasophils Auto (Bld) [#/Vol]Ordered By: Fabiola Marinelli on 36-63-4837Dqijsmbbd (Bld) [#/Vol]0.0 10*3/uL0.0-0.2FOhioHealth Arthur G.H. Bing, MD, Cancer CenterBasophils/100 WBC Auto (Bld)Ordered By: Fabiola Marinelli on 44-40-3885Sufavdpqk/100 WBC (Bld)0.6 %.[facility] For RehabilitationBlood anisocytosis detectionOrdered By: Fabiola Marinelli on 25-06-2061Guodfdzylsdf Ql (Bld) ModerateChildren'S Hospital For RehabilitationBlood hemoglobin measurement (mass/volume)Ordered By: Fabiola Marinelli on 59-17-4207Crwlycxdat (Bld) [Mass/Vol]11.9 g/dL11.8-15.4FOhioHealth Arthur G.H. Bing, MD, Cancer CenterBlood leukocytes automated count (number/volume)Ordered By: Fabiola Marinelli on 38-39-0123SMM (Bld) [#/Vol]2.1 10*3/uL 3.8-11.6FOhioHealth Arthur G.H. Bing, MD, Cancer CenterCreatinine and Glomerular filtration rate.predicted panel (S/P/Bld)Ordered By: Fabiola Marinelli on 43-11-1643Qdhvjirong [Mass/Vol]0.51 mg/dL0.44-1.03[facility] For RehabilitationEosinophils Auto (Bld) [#/Vol]Ordered By: Fabiola Marinelli on 75-21-4121Rygsszubuoq (Bld) [#/Vol]0.1 10*3/uL0.0-0.45[facility] For RehabilitationEosinophils/100 WBC Auto (Bld) Ordered By: Fabiola Marinelli on 82-18-7754Oqmbqsccgqe/100 WBC (Bld)5.4 %.[facility] For RehabilitationErythrocyte distribution width Auto (RBC) [Ratio]Ordered By: Fabiola Marinelli on 64-41-9402Hhljejnfrht distribution width (RBC) [Ratio]16.0 % 11.9-15.3FOhioHealth Arthur G.H. Bing, MD, Cancer CenterEstimated glomerular filtration rate (GFR) non- AmericanOrdered By: Fabiola Marinelli on 62-29-9578FCJ/1.73 sq M.predicted among non-blacks MDRD (S/P/Bld) [Vol rate/Area]> 60 mL/MinChildren'S Hospital For RehabilitationGlobulin Calc (S) [Mass/Vol]Ordered By: Fabiola Marinelli on 91-34-4218Vurnutcl (S) [Mass/Vol]2.0 g/dLChildren'S Hospital For Rehabilitation Hematocrit Auto (Bld) [Volume fraction]Ordered By: Fabiola Marinelli on 07-10-2022 Hematocrit (Bld) [Volume fraction]35.3 %34.0-46.4FOhioHealth Arthur G.H. Bing, MD, Cancer CenterLaboratory - Hematology and Cell countsOrdered By: Fabiola Marinelli on 07-10-2022 Nucleated RBC/100 WBC (Bld) [Ratio]0.1 %0-0.5FOhioHealth Arthur G.H. Bing, MD, Cancer Center Lymphocytes Auto (Bld) [#/Vol]Ordered By: Fabiola Marinelli on 88-96-8096Jrhucztvnic (Bld) [#/Vol]1.2 10*3/uL1.00-4.8[facility] For RehabilitationLymphocytes/100 WBC Auto (Bld)Ordered By: Fabiola Marinelli on 14-30-6550Ewebvkwxedo/100 WBC (Bld)57.9 %.[facility] CenterH Auto (RBC) [Entitic mass]Ordered By: Fabiola Marinelli on 91-70-1126ZUL (RBC) [Entitic mass]33.6 pg24.7-34.3FOhioHealth Arthur G.H. Bing, MD, Cancer CenterMCHC Auto (RBC) [Mass/Vol]Ordered By: Fabiola Marinelli on 51-89-3270FOOK (RBC) [Mass/Vol]33.7 g/dL32.0-35.0[facility] RehabilitationMCV Auto (RBC) [Entitic vol]Ordered By: Fabiola Marinelli on 91-78-7831YWD (RBC) [Entitic vol] 99.7 iD19-576YnmshkxrkChildren'S Hospital For RehabilitationMonocytes Auto (Bld) [#/Vol] Ordered By: Fabiola Marinelli on 53-75-0625Arljckzku (Bld) [#/Vol]0.2 10*3/uL0.0-0.8 [facility] RehabilitationMonocytes/100 WBC Auto (Bld)Ordered By: Fabiola Marinelli on 71-67-8324Jaedbmips/100 WBC (Bld)7.9 %.[facility] For RehabilitationNeutrophils Auto (Bld) [#/Vol]Ordered By: Fabiola Marinelli on 07-10-2022 Neutrophils (Bld) [#/Vol]0.6 10*3/uL1.8-7.7FOhioHealth Arthur G[facility] Cancer Center Neutrophils/100 WBC Auto (Bld)Ordered By: Fabiola Marinelli on 05-25-8079Rhnroaclgwe/100 WBC (Bld)28.2 %.[facility] For RehabilitationNo Panel InformationOrdered By: Fabiola Marinelli on 05-96-9171Cbokrgloq GFR ()> 60 mL/MinChildren'S Hospital For RehabilitationComment on above:GFR estimated reference range: According to KDOQI guidelines, <60 ml/min/1.73m2 is sufficient todiagnose a patient with chronic kidney disease.Pharmacy Creatinine Clearance (Kowr409.74[facility] For RehabilitationPlatelet EstimateDecreasedDoctors HospitalPlatelet Morphology CommentNormSumma Health Akron CampusPoikilocytosisSlightChildren'S Hospital For Rehabilitation2.1 10*3/uL4.5-11.0 [facility]0.1 %0-0.5FSouth Miami HospitalDecreasedDoctors HospitalNoAdena [facility]> 60 mL/MinChildren'S Hospital For Rehabilitation108.74[facility] For RehabilitationOvalocyte detectionOrdered By: Fabiola Marinelli on 15-14-3439Sagynurkab LM Ql (Bld)[facility] CenterPlatelet mean volume Auto (Bld) [Entitic vol] Ordered By: Fabiola Marinelli on 69-16-4513Nchehorz mean volume (Bld) [Entitic vol]8.6 fL6.3-10.7FOhioHealth Arthur G.H. Bing, MD, Cancer CenterPlatelets Auto (Bld) [#/Vol]Ordered By: Fabiola Marinelli on 23-33-3152Ohjaewqru (Bld) [#/Vol]53 10*3/uG871-314GnmjpcewgChildren'S Hospital For RehabilitationProtein [Mass/volume] in Serum or PlasmaOrdered By: Fabiola Marinelli on 66-80-2347Ilxjlvd [Mass/Vol]5.1 g/dL6.1-7.9[facility] For RehabilitationRB Auto (Bld) [#/Vol]Ordered By: Fabiola Marinelli on 98-21-5510KOM (Bld) [#/Vol] 3.54 10*6/uL3.60-5.00[facility] morphologyOrdered By: Fabiola Marinelli on 47-30-7436KAN morphology finding Nom (Bld)N/AFKettering Health Daytonerum or plasma alanine aminotransferase measurement without P-5'-P (enzymatic activiOrdered By: Fabiola Marinelli on 44-12-1462IDF No additional P-5'-P [Catalytic activity/Vol]24 U/M49-45LrrfhhvfbSumma Healtherum or plasma albumin/globulin mass ratioOrdered By: Fabiola Marinelli on 07-10-2022 Albumin/Globulin [Mass ratio]1.6 {ratio}Summa Healtherum or plasma alkaline phosphatase measurement (enzymatic activity/volume)Ordered By: Fabiola Marinelli on 12-24-9019WBV [Catalytic activity/Vol]100 U/J08-14HdekxodqoSumma Healtherum or plasma anion gap determinationOrdered By: Fabiola Marinelli on 57-78-5225Bgcvy gap [Moles/Vol]11.3 mmol/L6.0-15.0Summa Healtherum or plasma aspartate aminotransferase measurement (enzymatic activity/volume)Ordered By: Fabiola Marinelli on 50-63-4119OIK [Catalytic activity/Vol] 28 U/Y98-68YxcegtfvjSumma Healtherum or plasma calcium measurement (mass/volume)Ordered By: Fabiola Marinelli on 11-43-4357Zrtvkrs [Mass/Vol]8.8 mg/dL 8.2-10.2FKettering Health Daytonerum or plasma chloride measurement (moles/volume)Ordered By: Fabiola Marinelli on 56-75-0154Lilvkydb [Moles/Vol]103 mmol/L 95-114Summa Healtherum or plasma creatinine measurement with calculation of estimated glomerular filtrOrdered By: Fabiola Marinelli on 16-89-6199Taotywjpuq and Glomerular filtration rate.predicted panel (S/P/Bld) 0.51 mg/dL0.44-1.03Summa Healtherum or plasma glucose measurement (mass/volume)Ordered By: Fabiola Marinelli on 99-85-7025Sdnmqko [Mass/Vol] 116 mg/xA72-826CknvjrpkyChildren'S Hospital For RehabilitationComment on above:ADA recommended reference range Random Glucose Reference Range is dependent on time and content of last meal. Glucose of more than 200 mg/dL in a nonstressed, ambulatory subject supports the diagnosis of Diabetes Mellitus.Serum or plasma potassium measurement (moles/volume)Ordered By: Fabiola Marinelli on 09-34-6935Olyowyiyy [Moles/Vol]3.7 mmol/L 3.5-5.1FKettering Health Daytonerum or plasma sodium measurement (moles/volume)Ordered By: Fabiola Marinelli on 01-21-8388Dhszgp [Moles/Vol]139 mmol/L 136-146Summa Healtherum or plasma total bilirubin measurement (mass/volume)Ordered By: Fabiola Marinelli on 50-21-0606Gxdoapftt [Mass/Vol] 0.9 mg/dL0.3-1.2FKettering Health Daytonerum or plasma total carbon dioxide measurement (moles/volume)Ordered By: Fabiola Marinelli on 09-06-9607KO2 [Moles/Vol]28.4 mmol/L22.0-30.0Summa Healtherum or plasma urea nitrogen measurement (mass/volume)Ordered By: Fabiola Marinelli on 90-01-7043Uclw nitrogen [Mass/Vol]8 mg/dL9-23[facility] For RehabilitationIgA [Mass/volume] in Serum or PlasmaOrdered By: Fabiola Marinelli on 18-19-3737HrV [Mass/Vol]44 mg/dL 87-352Children[facility] Hospital For RehabilitationComment on above:Result confirmed on concentration.IgG [Mass/volume] in Serum or PlasmaOrdered By: Fabiola Marinelli on 45-47-1076PxW [Mass/Vol]463 mg/rR828-9294XblivkiqbChildren'S Hospital For RehabilitationIgM [Mass/volume] in Serum or PlasmaOrdered By: Fabiola Marinelli on 78-56-0800ZtN [Mass/Vol]17 mg/dS91-993BfsqadqhnChildren'S Hospital For RehabilitationComment on above:Result confirmed on concentration. Performed at: [facility] [id number] Door Glass Installer: Lang Knight PhD, Phone: [phone] confirmed on concentration.Performed at: [employer] [id number] Director: Lang Knight PhD, Phone: [phone] light chains.kappa.free [Mass/volume] in SerumOrdered By: Fabiola Marinelli on 07-04-2022 Immunoglobulin light chains.kappa.free (S) [Mass/Vol]10.6 mg/L3.3-19.4FOhioHealth Arthur G.H. Bing, MD, Cancer CenterImmunoglobulin light chains.kappa.free/Immunoglobulin light chains.lambda.free [MassOrdered By: Fabiola Marinelli on 70-94-0013Zwigsroyscypvt light chains.kappa.free/Immunoglobulin light chains.lambda.free (S) [Mass ratio] 0.080.26-1.65[facility] Hospital For RehabilitationComment on above:Performed at: [employer] [id number] Door Glass Installer: Lang Knight PhD, Phone: [phone] at: [employer] [id number] Director: Lang Knight PhD, Phone: [phone] light chains.lambda.free [Mass/volume] in Serum or PlasmaOrdered By: Fabiola Marinelli on 32-98-8295Vvgqnssgzmjrnj light chains.lambda.free [Mass/Vol]125.7 mg/L5.7-26.3FOhioHealth Arthur G.H. Bing, MD, Cancer Center Erythrocyte [place] body detectionOrdered By: Fabiola Marinelli on 06-04-2022 [place] bodies LM Ql (Bld)[facility] HospitalHowell- [place] bodies LM Ql (Bld)Erythrocyte [place] body detectionChildren'S Hospital For RehabilitationNo Panel InformationOrdered By: Fabiola Marinelli on 03-28-2022 Large PlateletsSHCA Florida Poinciana HospitalTeardrop cell detectionOrdered By: Fabiola Marinelli on 03-28-2022 Dacrocytes LM Ql (Bld)[facility] Albumin/Protein.total in 24 hour Urine by ElectrophoresisOrdered By: Fabiola Marinelli on 04-56-5974Ovpjldx Elph (24H U) [Mass fraction]27.0 %.[facility] For RehabilitationAlbumin Elph (24H U) [Mass fraction]Albumin/Protein.total in 24 hour Urine by Electrophoresis.[facility] For RehabilitationGamma globulin/Protein.total in 24 hour Urine by ElectrophoresisOrdered By: Fabiola Marinelli on 75-62-6468Asnbw globulin Elph (24H U) [Mass fraction]14.0 %.[facility] For RehabilitationGamma globulin Elph (24H U) [Mass fraction]Gamma globulin/Protein.total in 24 hour Urine by Electrophoresis.[facility] RehabilitationNo Panel InformationOrdered By: Fabiola Marinelli on 78-14-2606Fnozm Random Prot Electrophor NoteSee comment.[facility] Hospital For RehabilitationComment on above:Protein electrophoresis scan will follow via computer, mail, or emulsion operator delivery. Performed at: [facility] [address] [id number] Door Glass Installer: Lang Knight PhD, Phone: [phone] electrophoresis scan will follow via computer,mail, or emulsion operator delivery.Performed at: [facility] [address] [id number] Director: Lang Knight PhD, Phone: [phone] comment.[facility] Protein [Mass/volume] in UrineOrdered By: Fabiola Marinelli on 47-42-0303Ygsvnfu (U) [Mass/Vol]mg/dLNot Estab.[facility] For RehabilitationComment on above: Verified by repeat analysisProtein (U) [Mass/Vol]Protein [Mass/volume] in UrineNot Estab.[facility] RehabilitationProtein.monoclonal/Protein.total in 24 hour Urine by ElectrophoresisOrdered By: Fabiola Marinelli on 03-26-2022 Protein.monoclonal Elph (24H U) [Mass fraction]Not observed %Not Observed [facility] For RehabilitationProtein.monoclonal Elph (24H U) [Mass fraction] Protein.monoclonal/Protein.total in 24 hour Urine by ElectrophoresisNot Observed [facility] For RehabilitationUrine alpha 1 globulin/total protein by electrophoresisOrdered By: Fabiola Marinelli on 66-59-3834Pjthe 1 globulin Elph (U) [Mass fraction]13.6 %.[facility] For RehabilitationAlpha 1 globulin Elph (U) [Mass fraction]Urine alpha 1 globulin/total protein by electrophoresis.[facility] For RehabilitationUrine alpha 2 globulin/total protein ratio by electrophoresisOrdered By: Fabiola Marinelli on 92-81-5578Powex 2 globulin Elph (U) [Mass fraction]23.5 %.[facility] For RehabilitationAlpha 2 globulin Elph (U) [Mass fraction]Urine alpha 2 globulin/total protein ratio by electrophoresis. [facility] For RehabilitationUrine beta globulin measurement by electrophoresis (mass/volume)Ordered By: Fabiola Marinelli on 33-27-5295Yuor globulin Elph (U) [Mass/Vol]21.9 %.[facility] For RehabilitationBeta globulin Elph (U) [Mass/Vol]Urine beta globulin measurement by electrophoresis (mass/volume). [facility] RehabilitationAlbumin [Mass/volume] in Serum or PlasmaOrdered By: Fabiola Marinelli on 03-45-8448Lopumpl [Mass/Vol]3.2 g/dL2.9-4.4FOhioHealth Arthur G.H. Bing, MD, Cancer CenterAlbumin [Mass/Vol]Albumin [Mass/volume] in Serum or Plasma2.9-4.4 [facility] For RehabilitationLactate dehydrogenase measurement (enzymatic activity/volume)Ordered By: Fabiola Marinelli on 97-45-8940EMH (Unsp spec) [Catalytic activity/Vol]179 U/X34-862PkjemxmjbChildren'S Hospital For RehabilitationLD (Unsp spec) [Catalytic activity/Vol]Lactate dehydrogenase measurement (enzymatic activity/volume)45-190Children[facility] For RehabilitationNo Panel Information Ordered By: Fabiola Marinelli on 74-86-5159Flrcsmm Electrophoresis M-SpikeComment: g/dL Not ObservedChildren'S Hospital For RehabilitationComment on above:SPE shows an asymmetrical gamma.Protein Electrophoresis NoteSee comment.[facility] For RehabilitationComment on above:Protein electrophoresis scan will follow via computer, mail, or emulsion operator delivery. Performed at: [employer] [facility] [address] [id number] Door Glass Installer: Lang Knight PhD, Phone: [phone] electrophoresis scan will follow via computer,mail, or emulsion operator delivery.Performed at: [employer] [facility] [address] [id number] Director: Lang Knight PhD, Phone: [phone]: g/dLNot ObservedSumma Healthee comment.FireSamaritan HospitalProtein [Mass/volume] in Serum or PlasmaOrdered By: Fabiola Marinelli on 46-75-5693Zntyqiy [Mass/Vol]5.1 g/dL Low6.0-8.5FOhioHealth Arthur G.H. Bing, MD, Cancer CenterProtein [Mass/Vol]Protein [Mass/volume] in Serum or PlasmaLow6.0-8.5FKettering Health Daytonerum globulin measurement (mass/volume)Ordered By: Fabiola Marinelli on 41-26-1734Yhhrzcgp (S) [Mass/Vol]1.9 g/dLLow2.2-3.9[facility] For RehabilitationGlobulin (S) [Mass/Vol]Serum globulin measurement (mass/volume)Low2.2-3.9Summa Healtherum or plasma albumin/globulin mass ratioOrdered By: Fabiola Marinelli on 76-67-5654Crwsfhi/Globulin [Mass ratio]1.7 {ratio}0.7-1.7FOhioHealth Arthur G.H. Bing, MD, Cancer CenterAlbumin/Globulin [Mass ratio]Serum or plasma albumin/globulin mass ratio0.7-1.7FKettering Health Daytonerum or plasma alpha 1 globulin measurement by electrophoresis (mass/volume)Ordered By: Fabiola Marinelli on 03-25-2022 Alpha 1 globulin Elph [Mass/Vol]0.3 g/dL0.0-0.4FOhioHealth Arthur G.H. Bing, MD, Cancer Center Alpha 1 globulin Elph [Mass/Vol]Serum or plasma alpha 1 globulin measurement by electrophoresis (mass/volume)0.0-0.4FKettering Health Daytonerum or plasma alpha 2 globulin measurement by electrophoresis (mass/volume)Ordered By: Fabiola Marinelli on 31-15-5822Zotoy 2 globulin Elph [Mass/Vol]0.6 g/dL0.4-1.0[facility] For RehabilitationAlpha 2 globulin Elph [Mass/Vol]Serum or plasma alpha 2 globulin measurement by electrophoresis (mass/volume)0.4-1.0Summa Healtherum or plasma beta globulin measurement by electrophoresis (mass/volume)Ordered By: Fabiola Marinelli on 39-74-6127Kqxn globulin Elph [Mass/Vol]0.7 g/dL0.7-1.3FOhioHealth Arthur G.H. Bing, MD, Cancer CenterBeta globulin Elph [Mass/Vol]Serum or plasma beta globulin measurement by electrophoresis (mass/volume)0.7-1.3 Summa Healtherum or plasma gamma globulin measurement by electrophoresis (mass/volume)Ordered By: Fabiola Marinelli on 18-15-2599Asvfd globulin Elph [Mass/Vol]0.4 g/dL0.4-1.8[facility] For RehabilitationGamma globulin Elph [Mass/Vol]Serum or plasma gamma globulin measurement by electrophoresis (mass/volume)0.4-1.8[facility] For RehabilitationMacrocytes detectionOrdered By: Fabiola Marinelli on 18-58-2985Xcdtjjpwho Ql (Bld)SlightChildren'S Hospital For RehabilitationNo Panel InformationOrdered By: Fabiola Marinelli on 71-41-4876Shynf ImmunofixationSee comment.[facility] Hospital For RehabilitationComment on above: Immunofixation shows IgG monoclonal protein with kappa light chain specificity. Please note that samples from patients receiving DARZALEX(R) (daratumumab) treatment can appear as an IgG kappa and mask a complete response. If this patient is receiving JENNIFER, this VAHID assay interference can be removed by ordering test number [id number] Immunofixation, Daratumumab- Specific, Serum and submitting a [...] interference can be removedby ordering test number [id number]- Immunofixation, Daratumumab-Specific, Serum and submitting a new sample for testing orby calling the lab to add this test to the current sample.See comment Abnormal.[facility] [place] Surgical Pathology Departmenton [id number] Surgical Pathology DepartmentName MOJGAN PÉREZ Pathologist: INOCENCIA TSANG MD Date of Procedure: 10/07/2021 Date Received: 10/07/2021 Date Reported 10/08/2021 Submitting Physician: PITER BENAVIDEZ MD Location: [facility] Other External # [id number] FINAL DIAGNOSIS A AND B: BONE MARROW, ASPIRATE WITH CLOT AND CORE BIOPSY WITH TOUCH IMPRINT, SITE UNSPECIFIED ([facility], [id number] ( 05/03/2021): --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 NOTE: Per [facility] report, a 0.2% CD56+, CD138+, CD38-, lambda+ monoclonal plasma cell population was detected. Plasma cells are 1.5% by differential count. Megakaryocytes are slightly reduced and there is granulocytic hypoplasia. No dysplasia is identified. Genetic/Molecular performed previously by [facility]: -Chromosome analysis: Per report, normal 46,XX karyotype [...] they have reviewed this case. Intraoperative Consultation: A. [facility], 21-40 ( 05/03/2021): Microscopic Description: CBC: WBC 3.6 [...] red: Negative for amyloid. IMMUNOHISTOCHEMISTRY: Performed at [facility]. CD34: No increase in CD34+ blasts. CD31: Highlights vessels and slightly decreased megakaryocytes. CD3: Highlights scattered and few small clusters of T cells CD20: Highlights scattered B cells CD138: Highlights roughly 2% plasma cells CD56: Highlights rare cells. Cyclin D1: Appears negative in plasma cells. FLOW CYTOMETRY: Performed at [facility]. Per report, 0.2% CD56+, CD138+, CD38-, lambda+ [...] superior iliac crest Specimens Submitted As: A: [facility], [id number] ( 05/03/2021) Other Case Numbers [id number] Slide/Block Description Received from [facility], Department of Pathology, [address] [place] [address], are Twenty-Two (22) microscopic slides labelled [id number] Keep Slides: N Slides Returned: N Personal Consult: JuancarlosJFK Johnson Rehabilitation InstituteComment on above:Performed By: #### [facility] #### [facility] Surgical Pathology Department [id number] [facility] [address]Gjtmu polychromasia detection by light microscopyOrdered By: Fabiola Marinelli on 53-22-4436Mxihjtvmgfvoe LM Ql (Bld)[facility]'s HospitalCTA CHEST (GATED) W IVCONon 71-20-5081KUR CHEST (GATED) W IVCON* * *Final Report* * * DATE OF EXAM: Aug 01 2021 2:18PM [facility] [id number] - CTA CHEST (GATED) W IVCON [...] aorta, 4.1 cm Coronary artery calcific changes Rn Plasma Center: [facility] Transcribe Date/Time: Aug 01 2021 2:05P Dictated by : LAKEISHA CASTANEDA MD This examination was interpreted and the report reviewed and electronically signed by: LAKEISHA CASTANEDA MD on Aug 01 2021 2:26PM EST [id number] Main Campus Medical CenterGlucose Glucometer (BldC) [Mass/Vol] Ordered By: Fabiola Marinelli on 74-69-6227Ythuiee [Mass/Vol]179 mg/dLChildren'S Hospital For RehabilitationComment on above:Random Glucose Reference Range is dependent on time and content of last meal. Glucose of more than 200 mg/dL in a nonstressed, ambulatory subject supports the diagnosis of Diabetes Mellitus.Glucose [Mass/Vol]Capillary blood glucose measurement by glucometer (mass/volume) [facility] RehabilitationNo Panel InformationOrdered By: Fabiola Marinelli on 31-91-4237Ydutoze Glucose #2 CommentWill notify /[facility] HospitalBedside Glucose #3 CommentCleaned [facility] Bedside Glucose CommentSee [facility]ain HospitalComment on above:Glu2: Will Repeat TestSee [facility] HospitalWill notify /[facility] HospitalCleaned [facility] HospitalCT biopsyOrdered By: Fabiola Marinelli on 64-24-2308YI mg/dL 180-380[facility] Hospital For RehabilitationTransferrin [Mass/Vol]215 mg/tR328-747 [facility] For RehabilitationFerritin [Mass/volume] in Serum or Plasma Ordered By: Fabiola Marinelli on 78-21-8510Nsfkqxcf [Mass/Vol]268.6 ng/nP04-799.8 [facility] RehabilitationIron [Mass/volume] in Serum or PlasmaOrdered By: Fabiola Marinelli on 22-97-4936Pzto [Mass/Vol]100 ug/dD21-083QijtvgzfvChildren'S Hospital For RehabilitationIron binding capacity [Mass/volume] in Serum or PlasmaOrdered By: Fabiola Marinelli on 22-76-8869Uvwe binding capacity [Mass/Vol]301 ug/fV164-822SemclvsndChildren'S Hospital For RehabilitationIron saturation [Mass Fraction] in Serum or Plasma Ordered By: Fabiola Marinelli on 42-01-3163Hyne saturation [Mass fraction]33.0 %20-50 [facility] RehabilitationCholesterol [Mass/volume] in Serum or Plasmaon 33-65-6823Lgrbgzumzuz [Mass/Vol]109 mg/vAKyh114-749TuxgmucjzChildren'S Hospital For RehabilitationComment on above:Chol less than 200 mg/dl low risk Chol 201-239 mg/dl borderline risk Chol 240 mg/dl and greater high riskChol less than 200 mg/dl low riskChol 201- 239 mg/dl borderline riskChol 240 mg/dl and greater high riskCholesterol [Mass/Vol]Cholesterol [Mass/volume] in Serum or QqdnwyNtm118-428ZvoahnbmtChildren'S Hospital For RehabilitationCholesterol in LDL Calc [Mass/Vol]on 03-18-2021 Cholesterol in LDL [Mass/Vol]50 mg/dL0-100[facility] Comment on above:LDL ATP III CLASSIFICATION LDL less than 100 mg/dL Optimal LDL 100-129 mg/dL Near or above optimal LDL 130-159 mg/dL Borderline high LDL 160-189 mg/dL High LDL greater than 189 mg/dL Very highLDL ATP III CLASSIFICATIONLDL less than 100 mg/dL OptimalLDL 100-129 mg/dL Near or above gheskesJYX206-904 mg/dL Borderline highLDL 160-189 mg/dL HighLDL greater than 189 mg/dL Very highCholesterol in LDL [Mass/Vol]Cholesterol in LDL [Mass/volume] in Serum or Plasma by calculation 0-100[facility] For RehabilitationCholesterol in VLDL Calc [Mass/Vol]on 03-41-1071Zyjvnmhhtqc in VLDL [Mass/Vol]10 mg/dLChildren'S Hospital For RehabilitationCholesterol in VLDL [Mass/Vol]Cholesterol in VLDL [Mass/volume] in Serum or Plasma by calculationChildren'S Hospital For RehabilitationCreatinine [Mass/volume] in Urineon 13-18-1075Jgnbbkgqof (U) [Mass/Vol]166.0 mg/dLChildren'S Hospital For RehabilitationComment on above:No reference range established Creatinine (U) [Mass/Vol]Creatinine [Mass/volume] in UrineChildren'S Hospital For RehabilitationFolate [Mass/volume] in Serum or Plasmaon 75-73-5553Nzvdbv [Mass/Vol]21.1 ng/mL>5.9Children[facility] Hospital For RehabilitationComment on above:Folate reference range: >5.9 ng/ml The WHO technical consultation on folate and vitamin b12 deficiencies has determined that folate concentrations less than 4 ng/ml are considered deficient.Folate reference range: >5.9 ng/mlThe WHO technical consultation on folate and vitamin f57qvtggdemlxmp has determined that folate concentrations lessthan 4 ng/ml are considered deficient.Laboratory - Chemistry and Chemistry - challengeon 75-80-6020Dzqmuinii (Vitamin B12) [Mass/Vol]779 pg/fM016-985Pjrhrycdv[address] [place], [place] [address]Microalbumin [Mass/volume] in Urineon 14-47-1762Vimctyq DL <= 20 mg/L (U) [Mass/Vol] Microalbumin [Mass/volume] in Urine0.0-1.8[facility] For RehabilitationNo Panel Informationon 53-60-7627229 pg/gU836-758Uqwshodxs[address] [place] [address] Serum or plasma high density lipoprotein (HDL) cholesterol measurementon 61-36-2438Iqvruuqgbye in HDL [Mass/Vol]49 mg/iY17-86PnfcofhflChildren'S Hospital For RehabilitationComment on above:HDL CHOL ATP-III CLASSIFICATION Cardiovascular Risk HDL > or equal to 60 mg/dL LOW HDL < 40 mg/dL HIGHHDL CHOL ATP-III CLASSIFICATION Cardiovascular RiskHDL > or equal to 60 mg/dL LOWHDL < 40 mg/dL HIGHCholesterol in HDL [Mass/Vol]Serum or plasma high density lipoprotein (HDL) cholesterol abiuyunppsn11-40UnubpffzzSumma Healtherum or plasma total cholesterol/high density lipoprotein (HDL) cholesterol mass brenda 91-55-1562Txstnyiqlvc.total/Cholesterol in HDL [Mass ratio]2.2 {ratio}<5.0[facility] Cholesterol.total/Cholesterol in HDL [Mass ratio]Serum or plasma total cholesterol/high density lipoprotein (HDL) cholesterol mass rat<5.0[facility] For RehabilitationTriglyceride [Mass/volume] in Serum or Plasmaon 27-37-6324Fvaumyusudny [Mass/Vol]51 mg/aH13-092VnmbmfzsdChildren'S Hospital For Rehabilitation Comment on above:TRIG ATP III CLASSIFICATION TRIG [...] method.Triglyceride [Mass/Vol]Triglyceride [Mass/volume] in Serum or Plasma 35-149[facility] Hospital For RehabilitationUrine microalbumin measurement with detection limit of 20 mg/L or less (mass/volume)on 33-18-4713Cnyrcxi DL <= 20 mg/L (U) [Mass/Vol]1.1 mg/dL0.0-1.8[facility] For RehabilitationUrine microalbumin/creatinine mass ratioon 29-55-8066Hjuojao/Creatinine DL <= 20 mg/L (U) [Mass ratio]6.0 mg/g0.0-30.0[facility] For RehabilitationComment on above:30-300 mg/g indicates an increased risk for diabetic nephropathy. Greater than 300 mg/g is consistent with clinical nephropathy. (Am. J. Kidney Disease 1995, 25:107)Albumin/Creatinine DL <= 20 mg/L (U) [Mass ratio]Urine microalbumin/creatinine mass ratio0.0-30.0[facility] Laboratory - Hematology and Cell countson 00-31-9746DRA (Bld) [#/Vol]2.9 10*3/uL 4.5-11.0[facility] For RehabilitationNo Panel Informationon 12.9 10*3/uLLow4.5-11.0[facility] For RehabilitationImmunofixation for Urineon 51-36-9745Qggxtlwgxsxxhm Immunofixation (U) [Interp]See comment.[facility] Hospital For RehabilitationComment on above:No monoclonality detected. Performed at: [address] [id number] Door Glass Installer: Lang Knight PhD, Phone: [phone] monoclonality detected.Performed at: [address] [id number] Director: Lang Knight PhD, Phone: [phone] Immunofixation (U) [Interp]Immunofixation for Urine.[facility] Hospital For RehabilitationHypochromia detectionon 87-09-7761Jladeyiijrm Ql (Bld)SlightChildren'S Hospital For RehabilitationDaratumumab Molecular Genotypeon 76-37-2288Wcvgfkngldo Molecular GenotypeNoCritical access hospital Physician GroupComment on above:Result Comment: Specimen sent to [facility] for further testing on 04/05/20.PERFORMED BY:[place] [address] [place], [place] [phone] MEDICAL DIRECTORWEI HARE M.D. Direct Coombson 23-61-1635Upoxelhhhius AHGNegativeNoCritical access hospital Physician GroupComment on above:Result Comment: PERFORMED BY:[place] [address] [place], [place] [phone] MEDICAL DIRECTORWEI HARE M.D.BASIC METABOLIC PANELon 65-16-4334Yfypn gap [Moles/Vol] 10 mmol/ACaiplo86 - 20St. [facility] CenterComment on above:Performed By: #### BMP #### [facility] [address] [place], [place] [address]Gubjwaj [Mass/Vol]8.5 mg/dLLow8.6 - 10.3St. [facility] CenterComment on above:Performed By: #### BMP #### [address] [place], [place] [address]Orzcjgcr [Moles/Vol]105 mmol/AClmzvy61 - 107St. [facility] CenterComment on above:Performed By: #### BMP #### [address] [place], [place] [address]Uoobnzvjdm [Mass/Vol]0.46 mg/dLLow0.50 - 1.05St. [facility] CenterComment on above:Performed By: #### BMP #### [address] [place], [place] [address]NUD-FPCDHUF AM.>60Normal>60St. [facility] CenterComment on above:Result Comment: CALCULATIONS OF ESTIMATED GFR ARE PERFORMED USING THE MDRD STUDY EQUATION FOR THE IDMS-TRACEABLE CREATININE METHODS. CLIN CHEM 2007;53:766-72Performed By: #### BMP #### [address] [place], [place] [address]BWB-CCA AM.>60Normal>60St. [facility] CenterComment on above:Performed By: #### BMP #### [address] [place], [place] [address]Vmmqiya [Mass/Vol]124 mg/jCJnhp12 - 99[facility] Comment on above:Performed By: #### BMP #### [address] [place], [place] [address]JPO9 (Bld) [Moles/Vol]28 mmol/MTnbpfm35 - 32St[facility] CenterComment on above:Performed By: #### BMP #### [address] [place], [place] [address]Sfqghyirn [Moles/Vol]3.9 mmol/LNormal3.5 - 5.3St[facility] CenterComment on above:Performed By: #### BMP #### [address] [place], [place] [address]Tztoni [Moles/Vol]139 mmol/HFdaixj758 - 145St. [facility] CenterComment on above:Performed By: #### BMP #### [address] [place], [place] [address]Flwx nitrogen [Mass/Vol]15 mg/dLNormal6 - 23St. [facility] CenterComment on above:Performed By: #### BMP #### [address] [address]AOQbv 86-83-9378Reepxryavvm distribution width (RBC) [Ratio] 18.1 %High11.5 - 14.5St. [facility] CenterComment on above:Performed By: #### CBC #### [address] [address]Zxoqkqefhm (Bld) [Volume fraction]35.0 %Low36.0 - 46.0St. [facility] CenterComment on above:Performed By: #### CBC #### [address] [address]Qkukumbqur (Bld) [Mass/Vol]11.2 g/dLLow12.0 - 16.0St. [facility] CenterComment on above:Performed By: #### CBC #### [address] [address]HQCT (RBC) [Mass/Vol]32.0 g/eEVjcfad80.0 - 36.0St[facility] CenterComment on above:Performed By: #### CBC #### [address] [address]XFA (RBC) [Entitic vol]90 yQNnlnpi36 - 100St. [facility] CenterComment on above:Performed By: #### CBC #### [address] [address]Ivbwlhhkl RBC/100 WBC (Bld) [Ratio]0.0 /100 WBCNormal0.0 - 0.0 [facility] Elk CityComment on above:Performed By: #### CBC #### [address] [address]Hvyvpllry (Bld) [#/Vol]54 10*3/cXPuq253 - 450St. [facility] CenterComment on above:Performed By: #### CBC #### [address], [place] [address]VBR (Bld) [#/Vol]3.89 x10E12/LLow4.00 - 5.20St. [facility] CenterComment on above:Performed By: #### CBC #### [address] [address]GYB (Bld) [#/Vol]3.4 10*3/uLLow4.4 - 11.3St[facility] CenterComment on above:Performed By: #### CBC #### [address] [address]ZZKJRMWRAMY 2019, SCREEN ASYMPTOMATICon 01-30-2545HRFKBPBDLHJ 2019,PCRNOT DETECTEDNormalNot DetectedSt. [facility] Alabama Medical CenterComment on above: Result Comment: This assay is designed to detect the RdRp gene of SARS-CoV-2 via nucleic acid amplification. A Not Detected result does not preclude COVID-19 infection since the adequacy of sample collection and/or low viral burden may result in presence of viral nucleic acids below the clinical sensitivity of this test method. Fact sheet for providers: www.fda.gov/media/812189/download Fact sheet for patients: www.fda.gov/media/564400/download This test has received FDA Emergency Use Authorization (EUA) and has been verified by [facility]. This test is only authorized for the duration of time that circumstances exist to justify the authorization of the emergency use of in vitro diagnostic tests for the detection of SARS-CoV-2 virus and/or diagnosis of COVID-19 infection under section 564(b)(1) of the Act, 21 U.S.C. 360bbb-3(b)(1), unless the authorization is terminated or revoked sooner. [facility] is certified under CLIA-88 as qualified to perform high complexity testing. Testing is performed in the [facility] laboratory located at [address] [place] [address].Performed By: #### COVSC #### [place], [place] [address]Lab Specimen SourceNasal, NasopharyngealNormalSt. East Alabama Medical CenterComment on above:Performed By: #### COVSC #### [facility] [address] [facility]. 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 COMPARISON: None. ACCESSION NUMBER(S): [id number] ORDERING CLINICIAN: FABIOLA MARINELLI TECHNIQUE: INTERVENTIONALIST(S): Morro Calderon MD CONSENT: The patient was informed of [...] versed 2 mg IV for 22 minutes ([id number]). The physician was assisted by an independent [...] PACS. After confirmation of location, a 018 [place]-Mandril guidewire was inserted to secure location. The guidewire was advanced into the inferior vena cava utilizing intermittent fluoroscopy. The micro-access needle was removed over the guidewire. Utilizing a 5-on-4 coaxial dilator sheath system, upsize to a 035 3-J guidewire was performed. Subsequent access tract dilation was performed to an eventual 8.5-Fijian peel-away sheath dilator system. Following Lidocaine 1% local anesthesia, a superolateral Mediport pocket was created in the subcutaneous infraclavicular chest wall. The Mediport pocket was irrigated with normal saline and prophylactic antibiotics. A subcutaneous tract was then created from the Mediport pocket to the venous access site. The 8-Fijian port catheter was introduced maintaining continuity from [...] Uncomplicated placement of a right infraclavicular single-lumen Bthbzqrd-8-Jzbnhh catheter tip residing at the cavoatrial junction. 2. CT power-injection compatible Mediport. 3. MRI-compatible Mediport. Optimal functioning device and ready for utilization. I was present for and/or performed the critical portions of the procedure and immediately available throughout the entire procedure. Performed and dictated at [facility]. Electronically signed by: MORRO CALDERON MDNormalSt. [facility] Alabama Medical CenterPT/INRon 22-75-7114GCX Coag (PPP) [Relative time]1.3 {INR}High0.9 - 1.1 [facility] Elk CityComment on above:Performed By: #### PTINR #### [facility] [address] [place], [place] [address]NO Coag (PPP) [Time]14.5 sHigh9.7 - 12.7St. [facility] CenterComment on above:Performed By: #### PTINR #### [facility] [address] [place], [place] [address]Qhpog Board Noteon 90-04-2649Aqzbn Board NoteNote: Tumor Board Note MOJGAN PÉREZ was presented at Malignant Heme Tumor Board Conference on 15-Mar-2020 by (Dr. Fabiola Marinelli). Impression: History of KAPADIA. 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 Repeat bone marrow March 2020 showed plasma cell myeloma, 40-50% plasma cells. Recommendations: Jennifer/dex. Consider adding low dose revlimid or velcade. Disclaimer [facility] tumor board recommendations represent the consensus opinion of physicians present at a weekly patient care conference. The treating SCC physician is not always present, and many of the physicians formulating the recommendation have not personally seen or examined the patient under discussion. It is understood that the treating SCC physician considers the expertise of the Tumor Board Recommendation in formulating his/her plan for the patient. However, in many situations, based on individualized patient considerations, a different plan is determined by the treating physician to be the optimal medical management. Electronic Signatures: Nandini Flores (PT REG) (Signed 16-Mar-2020 17:29) Authored: Tumor Board, Disclaimer Last Updated: 16-Mar-2020 17:29 by Nandini Flores (PT REG)[facility] - Chemistry and Chemistry - challengeon 41-56-9435Avctlowdp [Mass/Vol]1.8 mg/dL1.6-2.6FOhioHealth Arthur G.H. Bing, MD, Cancer CenterNo Panel Information on 03-12-20201.8 mg/dL1.6-2.6FOhioHealth Arthur G.H. Bing, MD, Cancer CenterPROGRESSon 13-48-2830XDMOWVEJYQV ID: [id number] Author: Jessica Flores Service: Radiology Author Type: Research Technician Type: Progress Notes Filed: 12/07/2019 11:02 AM [...] Jessica Flores RDMS-RVT December 07, 2019 11:02 [facility] ABD RIGHT UPPER QUADRANTon 49-89-6631TD ABD RIGHT UPPER QUADRANT* * *Final Report* [...] Cirrhotic hepatic morphology. No obvious hepatic lesions. Rn Plasma Center: [facility] Transcribe Date/Time: Dec 07 2019 11:10A Dictated by : LETTY WALLACE MD This examination was interpreted and the report reviewed and electronically signed by: LETTY WALLACE MD on Dec 07 2019 11:12AM EST [id number] [facility] ABD SPLEEN -NBon 69-59-0842UV ABD SPLEEN -NB* * *Final Report* * [...] Cirrhotic hepatic morphology. No obvious hepatic lesions. [facility]: [facility] Transcribe Date/Time: Dec 07 2019 11:10A Dictated by : LETTY WALLACE MD This examination was interpreted and the report reviewed and electronically signed by: LETTY WALLACE MD on Dec 07 2019 11:12AM EST [id number] Specialty Hospital-Ann ArborRed blood cell stomatocyte detectionon 99-03-0501Fbrdoqjuveyn LM Ql (Bld)[facility] Stomatocytes LM Ql (Bld)Red blood cell stomatocyte detectionSumma Healtherum or plasma vude-9-jahdlvaojgybf measurement (mass/volume)on 04-89-2635Tcbt-2-Microglobulin [Mass/Vol]1.9 ug/mL0.6-2.4FOhioHealth Arthur G.H. Bing, MD, Cancer CenterComment on above:[employer]ens Immulite 2000 Immunochemiluminometric assay (ICMA) Values obtained with different assay methods or kits cannot be used interchangeably. Results cannot be interpreted as absolute evidence of the presence or absence of malignant disease. Performed at: [employer] [id number] Door Glass Installer: Maxine Briones MD, Phone: [phone] Immulite 2000 Immunochemiluminometric assay (ICMA)Values obtained with different assay methods or kits cannotbe used interchangeably. Results cannot be interpreted asabsolute evidence of the presence or absence of malignantdisease.Performed at: [employer] [address] [id number] Director: Maxine Briones MD, Phone: [phone]-0-Romjmmgsfhddu [Mass/Vol]Serum or plasma nvez-3-bbkoctbnizfel measurement (mass/volume)0.6-2.4FOhioHealth Arthur G.H. Bing, MD, Cancer CenterIgA [Mass/volume] in Serum or Plasmaon 20-56-3881CaQ [Mass/Vol]336 mg/dL 87-352Children[facility]S Hospital For RehabilitationIgA [Mass/Vol]IgA [Mass/volume] in Serum or Waizkw23-736DkydhzwneChildren'S Hospital For RehabilitationIgG [Mass/volume] in Serum or Plasmaon 69-34-6559VqX [Mass/Vol]1174 mg/fV957-0446XsojoihxcChildren'S Hospital For RehabilitationIgG [Mass/Vol]IgG [Mass/volume] in Serum or Ktxxuz105-5313GnqluhjmlChildren'S Hospital For RehabilitationIgM [Mass/volume] in Serum or Plasmaon 71-64-1816UkA [Mass/Vol]75 mg/qQ65-856Vrdvnaswc[address] [place], [place] [address]Comment on above: Performed at: [employer] [id number] Door Glass Installer: Lang Knight PhD, Phone: [phone] at: [employer] Wireless TechnologyDavid [place]ille [id number] Director: Lang Knight PhD, Phone: [phone] [Mass/Vol]IgM [Mass/volume] in Serum or Ecgtjz44-[address] [place], [place] [address]Glucose mean value [Mass/volume] in Blood Estimated from glycated hemoglobinon 16-80-8085Esbudom glucose Estimated from glycated hemoglobin (Bld) [Mass/Vol]180 mg/dLChildren'S Hospital For Rehabilitation Average glucose Estimated from glycated hemoglobin (Bld) [Mass/Vol]Glucose mean value [Mass/volume] in Blood Estimated from glycated hemoglobinChildren'S Hospital For RehabilitationHbA1c (Bld)on 60-69-2181VeA1v (Bld) [Mass fraction]7.9 % High4.3-5.6FOhioHealth Arthur G.H. Bing, MD, Cancer CenterComment on above:Increased risk for diabetes: 5.7 - 6.4 diabetes: >6.4 glycemic control for adults with diabetes: <7.0Increased risk for diabetes: 5.7 - 6.4diabetes: >6.4glycemic control for adults with diabetes: <7.0Laboratory on 27-82-0802ZqQ6t (Bld)High4.3-5.6FKettering Health Daytonerum or plasma 25-hydroxycalciferol measurement (mass/volume)on 96-36-039086- hydroxyvitamin D2 [Mass/Vol]12 ng/mL.[facility]25- hydroxyvitamin D2 [Mass/Vol]Serum or plasma 25-hydroxycalciferol measurement (mass/volume).Summa Healtherum or plasma 25-hydroxyvitamin D measurement (mass/volume)on 54-75-258422286274-qoojlyncltymsm D [Mass/Vol]22 ng/mL Low.[facility] Hospital For RehabilitationComment on above:Reference Range: All Ages: Target levels 30 - 100Reference Range:All Ages: Target levels 30 - 100 25-hydroxyvitamin D [Mass/Vol]Serum or plasma 25-hydroxyvitamin D measurement (mass/volume)Low.Summa Healtherum or plasma calcidiol measurement (mass/volume)on 59-26-768568921977-vdrgnbryjncbqu D3 [Mass/Vol]10 ng/mL. [facility] Hospital For RehabilitationComment on above:Performed at: [employer] [facility] [address] [place], [place] [id number] Door Glass Installer: Dwayne Hobbs MD, Phone: [phone] at: [employer] [address] [place], [place] [id number] Director: Dwayne Hobbs MD, Phone: [phone]-vwlbmvozwxvvsl D3 [Mass/Vol]Serum or plasma calcidiol measurement (mass/volume).[facility] Vital Signs Date TimeVital SignValuePerforming DxkycfvpcSyylvmxc30-85-1812 14:32-0400Body xwalcr789 cmDaniel Nuvia DO Work Phone: [facility]perWikiOzarks Medical CenterYqsrcmldqr79-09-4196 14:32-0400Body mass index (BMI) [Ratio]34.19 kg/r5Dhdajt Nuvia DO Work Phone: [facility] LouisFdgavbucid38-54-9835 14:32-0400Body temperature 97.7 [degF]Emely De Leont DO Work Phone: 1(567)[address] [place], [place] [address]10-21-2025 14:32-0400Body xukisp15.54 kgDahoward De Leont DO Work Phone: 1(091)[address] [place], [place] [address]10-21-2025 14:32-0400Diastolic blood udkrjoik45 mm[Hg]Emely Torresuitt DO Work Phone: 1(075)[address] [place], [place] [address]10-21-2025 14:32-0400Heart rate79 /min Emely De Leont DO Work Phone: 1(015)[address] [place] [address]-21-2025 14:32-0400Respiratory rate20 /minDanijose manuel De Leont DO Work Phone: 1(953)[address] [place], [place] [address]10-21-2025 14:32-9511HpK5% (BldA) [Mass fraction]98 %Emely De Leont DO Work Phone: 1(290)[address] [place], [place] [address]10-21-2025 14:32-0400Systolic blood mm[Hg]Emely De Leont DO Work Phone: 1(924)[address] [place], [place] [address]10-15-2025 08:15-0400Body temperature 97.8 [degF]Yinka Lopez MD Work Phone: 1(429)[address] [place], [place] [address]10-15-2025 08:15-0400 Body rkjkyl74.31 kgYinka Lopez MD Work Phone: 1(310)[address] [place], [place] [address]10-15-2025 08:15-0400 Diastolic blood qormassm31 mm[Hg]Yinka Lopez MD Work Phone: 1(519)[address] [place], [place] [address]10-15-2025 08:15-0400 Heart rate76 /minYinka Lopez MD Work Phone: 1(557)[address] [place], [place] [address]10-15-2025 08:15-0400 Respiratory rate16 /minYinka Lopez MD Work Phone: 1(375)[address] [place], [place] 4184410-15-2025 08:15-0400 SaO2% (BldA) [Mass fraction]98 %Yinka Lopez MD Work Phone: 1(973)[address] [place], [place] [address]10-15-2025 08:15-0400 Systolic blood awznjejl09 mm[Hg]Yinka Lopez MD Work Phone: 1(742)[address] [place], [place] 4184409-25-2025 10:26-0400 Body dcagob436.48 cmYinka Lopez MD Work Phone: 1(192)[address] [place], [place] 4184409-25-2025 10:26-0400 Body mass index (BMI) [Ratio]34.7 kg/j9NbjueYinka Lopez MD Work Phone: 1(487)[address] [place], [place] 4184409-25-2025 10:26-0400 Body rxyyzbrfvjg10.7 [degF]Yinka Lopez MD Work Phone: 1(613)[address] [place], [place] 4184409-25-2025 10:26-0400 Body rteuwk80.18 kgYinka Lopez MD Work Phone: 1(429)[address] [place], [place] 4184409-25-2025 10:26-0400 Diastolic blood wvuhasst34 mm[Hg]Yinka Lopez MD Work Phone: 1(931)[address] [place], [place] 4184409-25-2025 10:26-0400 Heart rate77 /minYinka Lopez MD Work Phone: 1(631)[address] [place], [place] 4184409-25-2025 10:26-0400 Respiratory rate16 /minYinka Lopez MD Work Phone: 1(790)[address] [place], [place] 4184409-25-2025 10:26-0400 SaO2% (BldA) [Mass fraction]97 %Yinka Lopez MD Work Phone: 1(259)[address] [place], [place] 4184409-25-2025 10:26-0400 Systolic blood kwkxaper70 mm[Hg]Yinka Lopez MD Work Phone: 1(231)[address] [place], [place] 4184409-18-2025 11:04-0400 Body bmaxlpzhuov72 [degF]Yinka Lopez MD Work Phone: 1(059)[address] [place], [place] 4184409-18-2025 11:04-0400 Diastolic blood mm[Hg]Yinka Lopez MD Work Phone: 1(419)[address] [place], [place] 4184409-18-2025 11:04-0400 Heart rate79 /Markus Lopez MD Work Phone: 1(463)[address] [place], [place] 4184409-18-2025 11:04-0400 Respiratory rate18 /Markus Lopez MD Work Phone: 1(704)[address] [place], [place] 4184409-18-2025 11:04-0400 SaO2% (BldA) [Mass fraction]97 %Yinka Lopez MD Work Phone: 1(808)[address] [place], [place] 4184409-18-2025 11:04-0400 Systolic blood nvfophqr99 mm[Hg]Yinka Lopez MD Work Phone: 1(272)[address] [place], [place] 4184409-17-2025 12:13-0400 Body iluatc733.48 cmYinka Lopez MD Work Phone: 1(207)[address] [place], [place] 4184409-17-2025 12:13-0400 Body laxiyugnkfu62.1 [degF]Yinka Lopez MD Work Phone: 1(013)[address] [place], [place] 4184409-17-2025 12:13-0400 Body .27 kgYinka Lopez MD Work Phone: 1(791)[address] [place], [place] 4184409-17-2025 12:13-0400 Diastolic blood gkziizvl51 mm[Hg]Yinka Lopez MD Work Phone: 1(208)[address] [place], [place] 4184409-17-2025 12:13-0400 Heart rate77 /Markus Lopez MD Work Phone: 1(823)[address] [place], [place] 4184409-17-2025 12:13-0400 Respiratory rate18 /Markus Lopez MD Work Phone: 1(446)[address] [place], [place] 4184409-17-2025 12:13-0400 SaO2% (BldA) [Mass fraction]96 %Yinka Lopez MD Work Phone: 1(731)[address] [place], [place] 4184409-17-2025 12:13-0400 Systolic blood xahqlurk934 mm[Hg]Yinka Lopez MD Work Phone: 1(380)[address] [place], [place] 4184409-17-2025 10:30-0400 Body owrygbfbdwo92.8 [degF]Yinka Lopez MD Work Phone: 1(368)[address] [place], [place] 4184409-17-2025 10:30-0400 Diastolic blood nyvixczx58 mm[Hg]Yinka Lopez MD Work Phone: 1(641)[address] [place], [place] 4184409-17-2025 10:30-0400 Heart rate76 /minYinka Lopez MD Work Phone: 1(562)[address] [place], [place] 4184409-17-2025 10:30-0400 Respiratory rate18 /minYinka Lopez MD Work Phone: 1(605)[address] [place], [place] 4184409-17-2025 10:30-0400 SaO2% (BldA) [Mass fraction]97 %Yinka Lopez MD Work Phone: 1(678)[address] [place], [place] 4184409-17-2025 10:30-0400 Systolic blood mm[Hg]Yinka Lopez MD Work Phone: 1(519)[address] [place], [place] 4184409-11-2025 12:45-0400 Body okkmun28.45 kgYinka Lopez MD Work Phone: 1(252)[address] [place], [place] 4184408-14-2025 10:37-0400 Body ydwmwa760.48 cmYinka Lopez MD Work Phone: 1(860)[address] [place], [place] 4184408-14-2025 10:37-0400 Body dvutfmiuflg62.8 [degF]Yinka oLpez MD Work Phone: 1(280)[address] [place], [place] 4184408-14-2025 10:37-0400 Body eqqcgv62.09 kgYinka Lopez MD Work Phone: 1(558)[address] [place], [place] 4184408-14-2025 10:37-0400 Diastolic blood oosrunli47 mm[Hg]Yinka Lopez MD Work Phone: 1(051)[address] [place], [place] 4184408-14-2025 10:37-0400 Heart rate79 /minYinka Lopez MD Work Phone: 1(449)[address] [place], [place] 4184408-14-2025 10:37-0400 Respiratory rate20 /minYinka Lopez MD Work Phone: 1(045)[address] [place], [place] 4184408-14-2025 10:37-0400 SaO2% (BldA) [Mass fraction]97 %Yinka Lopez MD Work Phone: 1(191)[address] [place], [place] 4184408-14-2025 10:37-0400 Systolic blood uugmgoxh90 mm[Hg]Yinka Lopez MD Work Phone: 1(415)[address] [place], [place] 4184408-14-2025 09:34-0400 Body wdtsit022.48 cmYinka Lopez MD Work Phone: 1(654)[address] [place], [place] 4184408-14-2025 09:34-0400 Body mass index (BMI) [Ratio]35.1 kg/r4IgvmyYinka Lopez MD Work Phone: 1(717)[address] [place], [place] 4184408-14-2025 09:34-0400 Body kycsdlbsggf75.8 [degF]Yinka Lopez MD Work Phone: 1(364)[address] [place], [place] 4184408-14-2025 09:34-0400 Diastolic blood akilazog93 mm[Hg]Yinka Lopez MD Work Phone: 1(367)[address] [place], [place] 4184408-14-2025 09:34-0400 Heart rate79 /Markus Lopez MD Work Phone: 1(543)[address] [place], [place] 4184408-14-2025 09:34-0400 Respiratory rate16 /minYinka Lopez MD Work Phone: 1(960)[address] [place], [place] 4184408-14-2025 09:34-0400 SaO2% (BldA) [Mass fraction]97 %Yinka Lopez MD Work Phone: 1(136)[address] [place], [place] 4184408-14-2025 09:34-0400 Systolic blood czgalmma48 mm[Hg]Yinka Lopez MD Work Phone: 1(485)[address] [place], [place] 4184408-14-2025 08:47-0400 Body cmDahoward Pedersen DO Work Phone: 1(942)[address] [place], [place] 6230108-14-2025 08:47-0400Body mass index (BMI) [Ratio]34.01 kg/e9Hcxjmihoward Pedersen DO Work Phone: 1(432)[address] [place], [place] 6230108-14-2025 08:47-0400Body temperature 98.01 [degF]Emely Pedersen DO Work Phone: 1(009)[address] [place] [address]-14-2025 08:47-0400Body uzlfnz98.09 kgDahoward Pedersen DO Work Phone: 1(645)[address] [place] [address]-14-2025 08:47-0400Diastolic blood oddkfobx46 mm[Hg]Emely Pedersen DO Work Phone: 1(822)[address] [place] [address]-14-2025 08:47-0400Heart rate81 /min Emely Pedersen DO Work Phone: 1(903)[address] [place] [address]-14-2025 08:47-0400Respiratory rate20 /minDanijose manuel Pedersen DO Work Phone: 1(551)[address] [place] [address]-14-2025 08:47-6229EhM3% (BldA) [Mass fraction]98 %Emely Pedersen DO Work Phone: 1(008)[address] [place] [address]-14-2025 08:47-0400Systolic blood vvpoycda323 mm[Hg]Emely Pedersen DO Work Phone: 1(568)[address] [place], [place] 6230107-28-2025 14:04-0400Body ypvewt304.48 cmYinka Lopez MD Work Phone: [phone]07-28-2025 14:04-0400 Body mass index (BMI) [Ratio]36.4 kg/y3VnzfyYinka Lopez MD Work Phone: [phone]07-28-2025 14:04-0400 Body wcjehx44.4 kgYinka Lopez MD Work Phone: [phone]07-28-2025 14:04-0400 Diastolic blood ztgywfhl87 mm[Hg]Yinka Lopez MD Work Phone: 1(153)[address] [place], [place] 4184407-28-2025 14:04-0400 Heart rate76 /minYinka Lopez MD Work Phone: 1(482)[address] [place], [place] 4184407-28-2025 14:04-0400 Systolic blood gddfuygh85 mm[Hg]Yinka Lopez MD Work Phone: 1(294)[address] [place], [place] 4184407-17-2025 08:31-0400 Body ecbgzrnjhql46.3 [degF]Yinka Lopez MD Work Phone: 1(981)[address] [place], [place] 4184407-17-2025 08:31-0400 Body ciqfbd40.4 kgYinka Lopez MD Work Phone: 1(454)[address] [place], [place] 4184407-17-2025 08:31-0400 Diastolic blood qqvamqrw67 mm[Hg]Yinka Lopez MD Work Phone: 1(154)[address] [place], [place] 4184407-17-2025 08:31-0400 Heart rate85 /Markus Lopez MD Work Phone: 1(189)[address] [place], [place] 4184407-17-2025 08:31-0400 Respiratory rate18 /minYinka Lopez MD Work Phone: 1(049)[address] [place], [place] 4184407-17-2025 08:31-0400 SaO2% (BldA) [Mass fraction]98 %Yinka Lopez MD Work Phone: 1(573)[address] [place], [place] 4184407-17-2025 08:31-0400 Systolic blood xiifystb55 mm[Hg]Yinka Lopez MD Work Phone: 1(539)[address] [place], [place] 4184407-14-2025 10:02-0400 Body gxeowb406 cmDaniel Nuvia DO Work Phone: [facility]Lyaszumtde43-11-5443 10:02-0400Body mass index (BMI) [Ratio]35.25 kg/e4Vlclla Nuvia DO Work Phone: [facility] LouisOkgoawedgm03-25-1439 10:02-0400Body temperature 98.2 [degF]Emely Pedersen DO Work Phone: 1(429)[address] [place], [place] 6230107-14-2025 10:020400Body xpytzx13.27 kgDahoward Pedersen DO Work Phone: 1(764)[address] [place], [place] 6230107-14-2025 10:02-0400Diastolic blood nhjibujs45 mm[Hg]Emely Pedersen DO Work Phone: 1(083)[address] [place], [place] 6230107-14-2025 10:020400Heart rate84 /min Emely Pedersen DO Work Phone: 1(404)[address] [place], [place] 6230107-14-2025 10:02Respiratory rate20 /minDstevie Pedersen DO Work Phone: 1(729)[address] [place], [place] 6230107-14-2025 10:023735NaT3% (BldA) [Mass fraction]98 %Emely Pedersen DO Work Phone: 1(210)[address] [place], [place] 6230107-14-2025 10:020400Systolic blood ltxwsmaq237 mm[Hg]Emely Pedersen DO Work Phone: 1(507)[address] [place], [place] 6230106-19-2025 09:30-0400Body vosbir07.72 kgYinka Lopez MD Work Phone: 1(724)[address] [place], [place] 4184406-19-2025 08:42-0400 Body wylvlc400.48 cmYinka Lopez MD Work Phone: 5(008)[address] [place], [place] 4184406-19-2025 08:42-0400 Body mass index (BMI) [Ratio]34.5 kg/z0NtycwYinka Lopez MD Work Phone: 1(974)[address] [place], [place] 4184406-19-2025 08:42-0400 Body essurpfrvla03.8 [degF]Yinka Lopez MD Work Phone: 2(842)[address] [place], [place] 4184406-19-2025 08:42-0400 Body hmebvc17.72 kgYinka Lopez MD Work Phone: 1(173)[address] [place], [place] 4184406-19-2025 08:42-0400 Diastolic blood wohzqkta86 mm[Hg]Yinka Lopez MD Work Phone: 1(712)[address] [place], [place] 4184406-19-2025 08:42-0400 Heart rate89 /minYinka Lopez MD Work Phone: 1(299)[address] [place], [place] 4184406-19-2025 08:42-0400 Respiratory rate16 /minYinka Lopez MD Work Phone: 1(977)[address] [place], [place] 4184406-19-2025 08:42-0400 SaO2% (BldA) [Mass fraction]98 %Yinka Lopez MD Work Phone: 1(490)[address] [place], [place] 4184406-19-2025 08:42-0400 Systolic blood fwqhfugo10 mm[Hg]Yinka Lopez MD Work Phone: 1(634)[address] [place], [place] 4184406-09-2025 09:54-0400 Body aosmwb315 cmDaniel Nuvia DO Work Phone: 1(300)[address] [place], [place] 2958306-09-2025 09:54-0400Body mass index (BMI) [Ratio]34.01 kg/j0Vnbpgl Nuvia DO Work Phone: 1(945)[facility]03[facility] LouisWflktmqcxt18-65-8849 09:54-0400Body temperature 98.2 [degF]Emely Nuvia DO Work Phone: 1(265)[facility] LouisNmvtotsrwt95-41-5739 09:54-0400Body mdukdx37.09 kgDaniel Nuvia DO Work Phone: 1(504)[address] [place], [place] 2958306-09-2025 09:54-0400Diastolic blood mm[Hg]Emely Nuvia DO Work Phone: 1(269)[address] [place], [place] 2958306-09-2025 09:54-0400Heart rate91 /min Emely Nuvia DO Work Phone: 1(655)[address] [place], [place] 2958306-09-2025 09:54-0400Respiratory rate20 /minDaniel Nuvia DO Work Phone: 1(413)[facility] LouisNbzocswqqx24-15-1819 09:54-7680CoL8% (BldA) [Mass fraction]98 %Emely Pedersen DO Work Phone: 1(137)[facility] LouisYflxbheges18-52-5571 09:54-0400Systolic blood ydbkpiri300 mm[Hg]Emely Pedersen DO Work Phone: 1(218)[facility] LouisVobyahgbia05-69-9800 15:40-0400Body apvjue680 cm Eemly Pedersen DO Work Phone: 1(610)[address] [place], [place] 2958305-28-2025 15:40-0400Body mass index (BMI) [Ratio]33.3 kg/c3Yucparhoward Pedersen DO Work Phone: 1(047)[address] [place], [place] 2958305-28-2025 15:40-0400Body temperature 98.1 [degF]Emely Pedersen DO Work Phone: 1(266)[address] [place], [place] 2958305-28-2025 15:40-0400Body cnqnfa96.28 kgDahoward Pedersen DO Work Phone: 1(008)[address] [place], [place] 2958305-28-2025 15:40-0400Diastolic blood qkjdrspy04 mm[Hg]Emely Pedersen DO Work Phone: 1(238)[facility] LouisOzytmvclej97-80-2804 15:40-0400Heart rate89 /min Emely Pedersen DO Work Phone: 1(304)[address] [place], [place] 2958305-28-2025 15:40-0400Respiratory rate20 /minDanijose manuel Pedersen DO Work Phone: 1(388)[facility] LouisPukygeywuo15-36-2356 15:40-5372EpR6% (BldA) [Mass fraction]94 %Emely Pedersen DO Work Phone: 1(065)[facility] LouisNphvjuwqzv21-40-1332 15:40-0400Systolic blood crdngbit909 mm[Hg]Emely Pedersen DO Work Phone: 1(275)[address] [place], [place] 2958305-27-2025 11:00-0400Body tpdisfqjive03 [degF]Yinka Lopez MD Work Phone: 1(831)186-25[facility]05-27-2025 11:00-0400 Diastolic blood dufernea21 mm[Hg]Yinka Lopez MD Work Phone: 1(165)[address] [place], [place] 4184405-27-2025 11:00-0400 Heart rate75 /minYinka Lopez MD Work Phone: 1(116)[address] [place], [place] 4184405-27-2025 11:00-0400 Respiratory rate16 /minYinka Lopez MD Work Phone: 1(550)[address] [place], [place] 4184405-27-2025 11:00-0400 SaO2% (BldA) [Mass fraction]99 %Yinka Lopez MD Work Phone: 1(090)[address] [place], [place] 4184405-27-2025 11:00-0400 Systolic blood nrsuhuka099 mm[Hg]Yinka Lopez MD Work Phone: 1(036)[address] [place], [place] 4184405-15-2025 09:23-0400 Body sofcxz875.48 cmYinka Lopez MD Work Phone: 1(387)[address] [place], [place] 4184405-15-2025 09:23-0400 Body mass index (BMI) [Ratio]34 kg/g2YiaquYinka Lopez MD Work Phone: 1(422)[address] [place], [place] 4184405-15-2025 09:23-0400 Body xdcihycjqbu03.8 [degF]Yinka Lopez MD Work Phone: 1(504)[address] [place], [place] 4184405-15-2025 09:23-0400 Body .36 kgYinka Lopez MD Work Phone: 1(574)[address] [place], [place] 4184405-15-2025 09:23-0400 Diastolic blood empsdatr30 mm[Hg]Yinka Lopez MD Work Phone: 1(915)[address] [place], [place] 4184405-15-2025 09:23-0400 Heart rate75 /Markus Lopez MD Work Phone: 1(504)[address] [place], [place] 4184405-15-2025 09:23-0400 Respiratory rate16 /Markus Lopez MD Work Phone: 1(545)[address] [place], [place] 4184405-15-2025 09:23-0400 SaO2% (BldA) [Mass fraction]97 %Yinka Lopez MD Work Phone: 1(996)671[facility]96[facility]05-15-2025 09:23-0400 Systolic blood droahyis131 mm[Hg]Yinka Lopez MD Work Phone: 1(712)[address] [place], [place] 4184405-12-2025 11:57-0400 Body mass index (BMI) [Ratio]32.56 kg/u7Gzfsxxuleah Greer PARK MANAGER Work Phone: 1(937)[address] [place], [place] 6528205-12-2025 11:57-0400Body temperature 97.81 [degF]Joaquina Greer PARK MANAGER Work Phone: 1(927)[address] [place], [place] 6528205-12-2025 11:57-0400Body .37 kgLinbutchwili Zoey PARK MANAGER Work Phone: 1(822)[address] [place], [place] 6528205-12-2025 11:57-0400Diastolic blood uvqctdmm15 mm[Hg]Joaquina Greer PARK MANAGER Work Phone: 1(553)[address] [place], [place] 6528205-12-2025 11:57-0400Heart rate83 /min Joaquina Greer PARK MANAGER Work Phone: 1(173)[address] [place], [place] 6528205-12-2025 11:57-8767NjH2% (BldA) [Mass fraction]95 %Joaquina Greer PARK MANAGER Work Phone: 1(521)[address] [place], [place] 6528205-12-2025 11:57-0400Systolic blood mm[Hg]Joaquina Greer PARK MANAGER Work Phone: 1(369)[address] [place], [place] 6528205-06-2025 09:09-0400Body temperature 98.2 [degF]Yinka Lopez MD Work Phone: 1(774)320-03[facility]05-06-2025 09:09-0400 Diastolic blood mm[Hg]Yinka Lopez MD Work Phone: 1(767)[address]05-06-2025 09:09-0400 Heart rate73 /minYinka Lopez MD Work Phone: 1(176)[address]05-06-2025 09:09-0400 Respiratory rate18 /minYinka Lopez MD Work Phone: 1(247)[address] [place], [place] 4184405-06-2025 09:09-0400 SaO2% (BldA) [Mass fraction]97 %Yinka Lopez MD Work Phone: 1(997)[address] [place], [place] 4184405-06-2025 09:09-0400 Systolic blood mm[Hg]Yinka Lopez MD Work Phone: 1(552)[address] [place], [place] 4184404-30-2025 13:51-0400 Body cmDabamel Nuvia DO Work Phone: 1(691)[address] [place], [place] 2958304-30-2025 13:51-0400Body mass index (BMI) [Ratio]31.89 kg/u2Bogngo Nuvia DO Work Phone: 1(777)[address] [place], [place] 2958304-30-2025 13:51-0400Body temperature 97.7 [degF]Emely Nuvia DO Work Phone: 1(559)[address] [place], [place] 2958304-30-2025 13:51-0400Body zmqcka85.65 kgDaniel Nuvia DO Work Phone: 1(099)[address] [place], [place] 2958304-30-2025 13:51-0400Diastolic blood ruhkupvl03 mm[Hg]Emely Nuvia DO Work Phone: 1(070)[address] [place], [place] 2958304-30-2025 13:51-0400Heart rate87 /min Emely Nuvia DO Work Phone: 1(688)[address] [place], [place] 2958304-30-2025 13:51-0400Respiratory rate20 /minDaniel Nuvia DO Work Phone: 1(109)[facility] [place], [place] [address]Qwconctuon05-67-2609 13:51-6191LvI0% (BldA) [Mass fraction]97 %Emely Nuvia DO Work Phone: 1(237)[address] [place], [place] 2958304-30-2025 13:51-0400Systolic blood venilchv942 mm[Hg]Emely Nuvia DO Work Phone: 1(383)[facility] LouisQpfwqnpzft97-54-7280 14:38-0400Body .48 cmYinka Lopez MD Work Phone: 1(364)[address] [place], [place] 4184404-15-2025 14:38-0400 Body mass index (BMI) [Ratio]33.6 kg/n6XixmoYinka Lopez MD Work Phone: 1(756)[address] [place], [place] 4184404-15-2025 14:38-0400 Body wjjdbtkaibz11.9 [degF]Yinka Lopez MD Work Phone: 1(420)[address] [place], [place] 4184404-15-2025 14:38-0400 Body ouqjgy13.46 kgYinka Lopez MD Work Phone: 1(179)[address] [place], [place] 4184404-15-2025 14:38-0400 Diastolic blood civlujgc74 mm[Hg]Yinka Lopez MD Work Phone: 1(704)[address] [place], [place] 4184404-15-2025 14:38-0400 Heart rate84 /minYinka Lopez MD Work Phone: 1(014)[address] [place], [place] 4184404-15-2025 14:38-0400 Systolic blood ygbpdufi895 mm[Hg]Yinka Lopez MD Work Phone: 1(338)[address] [place], [place] 4184404-04-2025 10:47-0400 Body .8 [degF]Yinka Lopez MD Work Phone: 1(968)[address] [place], [place] 4184404-04-2025 10:47-0400 Body .55 kgYinka Lopez MD Work Phone: 1(415)[address] [place], [place] 4184404-04-2025 10:47-0400 Diastolic blood ymlicepz59 mm[Hg]Yinka Lopez MD Work Phone: 1(040)[address] [place], [place] 4184404-04-2025 10:47-0400 Heart rate76 /Markus Lopez MD Work Phone: 1(109)[address] [place], [place] 4184404-04-2025 10:47-0400 Respiratory rate16 /Markus Lopez MD Work Phone: 1(274)[address] [place], [place] 4184404-04-2025 10:47-0400 SaO2% (BldA) [Mass fraction]98 %Yinka Lopez MD Work Phone: 1(465)[address] [place], [place] 4184404-04-2025 10:47-0400 Systolic blood bkycehuw069 mm[Hg]Yinka Lopez MD Work Phone: 1(424)[address] [place], [place] 4184404-01-2025 08:15-0400 Body nhcpcpvclyy98.2 [degF]Yinka Lopez MD Work Phone: 1(922)[address] [place], [place] 4184404-01-2025 08:15-0400 Diastolic blood fhrjanys60 mm[Hg]Yinka Lopez MD Work Phone: 1(687)[address] [place], [place] 4184404-01-2025 08:15-0400 Heart rate83 /minYinka Lopez MD Work Phone: 1(394)[address] [place], [place] 4184404-01-2025 08:15-0400 Respiratory rate16 /minYinka Lopez MD Work Phone: 1(997)[address] [place], [place] 4184404-01-2025 08:15-0400 SaO2% (BldA) [Mass fraction]97 %Yinka Lopez MD Work Phone: 1(917)[address] [place], [place] 4184404-01-2025 08:15-0400 Systolic blood ewwbbzhm469 mm[Hg]Yinka Lopez MD Work Phone: 1(252)[address] [place], [place] 4184402-27-2025 10:33-0500 Body rjzlho911.48 cmYinka Lopez MD Work Phone: 1(950)[address] [place], [place] 4184402-27-2025 10:33-0500 Body mass index (BMI) [Ratio]34.2 kg/w0WernnYinka Lopez MD Work Phone: 1(715)[address] [place], [place] 4184402-27-2025 10:33-0500 Body tiufffnpekz50.8 [degF]Yinka Lopez MD Work Phone: 1(804)[address] [place], [place] 4184402-27-2025 10:33-0500 Body agcoba31.82 kgYinka Lopez MD Work Phone: 1(548)[address] [place], [place] 4184402-27-2025 10:33-0500 Diastolic blood oqeilcfv18 mm[Hg]Yinka Lopez MD Work Phone: 1(359)[address] [place], [place] 4184402-27-2025 10:33-0500 Heart rate82 /Markus Lopez MD Work Phone: 1(588)[address] [place], [place] 4184402-27-2025 10:33-0500 Respiratory rate16 /Markus Lopez MD Work Phone: 1(291)[address] [place], [place] 4184402-27-2025 10:33-0500 SaO2% (BldA) [Mass fraction]98 %Yinka Lopez MD Work Phone: 1(885)[address] [place], [place] 4184402-27-2025 10:33-0500 Systolic blood njytcuop983 mm[Hg]Yinka Lopez MD Work Phone: 1(847)[address] [place], [place] 4184402-18-2025 15:49-0500 Body qvpywr518.48 cmYinka Lopez MD Work Phone: 1(194)[address] [place], [place] 4184402-18-2025 15:49-0500 Body zubptsvvdlu64.1 [degF]Yinka Lopez MD Work Phone: 1(129)[address] [place], [place] 4184402-18-2025 15:49-0500 Body eourcw43.15 kgYinka Lopez MD Work Phone: 1(138)[address] [place], [place] 4184402-18-2025 15:49-0500 Diastolic blood tufbyejg10 mm[Hg]Yinka Lopez MD Work Phone: 1(431)[address] [place], [place] 4184402-18-2025 15:49-0500 Heart rate81 /Markus Lopez MD Work Phone: 1(450)[address] [place], [place] 4184402-18-2025 15:49-0500 Respiratory rate16 /Markus Lopez MD Work Phone: 1(482)[address] [place], [place] 4184402-18-2025 15:49-0500 SaO2% (BldA) [Mass fraction]99 %Yinka Lopez MD Work Phone: 1(773)[address] [place], [place] 4184402-18-2025 15:49-0500 Systolic blood jbgmqodh384 mm[Hg]Yinka Lopez MD Work Phone: 1(233)[address] [place], [place] 4184402-18-2025 13:48-0500 Body pohqvs824 cmYinka Lopez MD Work Phone: 1(322)[address] [place], [place] 2958302-18-2025 13:48-0500Body mass index (BMI) [Ratio]32.17 kg/n6UfvidYinka Lopez MD Work Phone: 1(969)[address] [place], [place] 2958302-18-2025 13:48-0500Body temperature 98.2 [degF]Yinka Lopez MD Work Phone: 1(064)[address] [place], [place] 2958302-18-2025 13:48-0500Body .37 kgYinka Lopez MD Work Phone: 1(897)[address] [place], [place] 2958302-18-2025 13:48-0500Diastolic blood wgxhxucr75 mm[Hg]Yinka Lopez MD Work Phone: 1(720)[address] [place], [place] 2958302-18-2025 13:48-0500Heart rate81 /min Yinka Lopez MD Work Phone: 1(865)[address] [place] [address]-18-2025 13:48-0500Respiratory rate20 /minYinka Lopez MD Work Phone: 1(009)[address] [place], [place] 2958302-18-2025 13:48-7222BzV8% (BldA) [Mass fraction]97 %Yinka Lopez MD Work Phone: 1(450)[address] [place], [place] 2958302-18-2025 13:48-0500Systolic blood rhdpeqxb512 mm[Hg]Yinka Lopez MD Work Phone: 1(274)[address] [place], [place] 2958302-06-2025 14:00-0500Body temperature 97.5 [degF]Yinka Lopez MD Work Phone: 1(319)[address] [place], [place] 4184402-06-2025 14:00-0500 Body .37 kgYinka Lopez MD Work Phone: 1(859)[address] [place], [place] 4184402-06-2025 14:00-0500 Diastolic blood aqyatkco82 mm[Hg]Yinka Lopez MD Work Phone: [facility]02-06-2025 14:00-0500 Heart rate85 /minYinka Lopez MD Work Phone: 1(476)305-76[facility]02-06-2025 14:00-0500 Respiratory rate19 /minYinka Lopez MD Work Phone: 1(882)267-[address] [place], [place] 1704202-06-2025 14:00-0500 SaO2% (BldA) [Mass fraction]97 %Yinka Lopez MD Work Phone: 1(097)241-75[facility]02-06-2025 14:00-0500 Systolic blood scnvtyqx086 mm[Hg]Yinka Lopez MD Work Phone: 1(807)799-09[facility]01-27-2025 10:18-0500 Body zbhetw103.5 cmKapil Mortensen FIBRE TECHNOLOGIST-BINDERY MACHINE SETTER Work Phone: [address] [place], [place] 3394701-27-2025 10:18-0500 Body mass index (BMI) [Ratio]32.37 kg/r4Yyhjz Woconish FIBRE TECHNOLOGIST-BINDERY MACHINE SETTER Work Phone: [address] [place], [place] 3394701-27-2025 10:18-0500 Body lgdkkrzhzxu73.5 [degF]Kapil Woconish FIBRE TECHNOLOGIST-BINDERY MACHINE SETTER Work Phone: 1216)[address] [place], [place] 3394701-27-2025 10:18-0500 Body cydwyk52.29 kgKapil Robledoconish FIBRE TECHNOLOGIST-BINDERY MACHINE SETTER Work Phone: 1216)[address] [place], [place] 3394701-27-2025 10:18-0500 Diastolic blood sdkjtipo61 mm[Hg]Kapil Robledoconclara FIBRE TECHNOLOGIST-BINDERY MACHINE SETTER Work Phone: [address] [place], [place] 3394701-27-2025 10:18-0500 Heart rate73 /minDtodd Robledoconclara FIBRE TECHNOLOGIST-BINDERY MACHINE SETTER Work Phone: [address] [place], [place] 3394701-27-2025 10:18-0500 Systolic blood drvtuhsb09 mm[Hg]Kapil Robledoconclara FIBRE TECHNOLOGIST-BINDERY MACHINE SETTER Work Phone: [phone]01-16-2025 13:14-0500 Body bzhser929.48 cmYinka Lopez MD Work Phone: 1(665)[address] [place], [place] 4184401-15-2025 10:17-0500 Body epkrkizbqpt74.5 [degF]Yinka Lopez MD Work Phone: 1(118)[address] [place], [place] 4184401-15-2025 10:17-0500 Body .64 kgYinka Lopez MD Work Phone: 1(128)[address] [place], [place] 4184401-15-2025 10:17-0500 Diastolic blood ddzdrnox04 mm[Hg]Yinka Lopez MD Work Phone: 1(709)[address] [place], [place] 4184401-15-2025 10:17-0500 Heart rate72 /minYinka Lopez MD Work Phone: 1(539)[address] [place], [place] 4184401-15-2025 10:17-0500 Respiratory rate16 /minYinka Lopez MD Work Phone: 1(053)[address] [place], [place] 4184401-15-2025 10:17-0500 SaO2% (BldA) [Mass fraction]98 %Yinka Lopez MD Work Phone: 1(598)[address] [place], [place] 4184401-15-2025 10:17-0500 Systolic blood mdyujwop560 mm[Hg]Yinka Lopez MD Work Phone: 1(181)[address] [place], [place] 4184412-26-2024 10:01-0500 Body nxetvgzxdnk96.7 [degF]Yinka Lopez MD Work Phone: 1(726)[address] [place], [place] 4184412-26-2024 10:01-0500 Diastolic blood fbtxrrod74 mm[Hg]Yinka Lopze MD Work Phone: 1(235)[address] [place], [place] 4184412-26-2024 10:01-0500 Heart rate78 /Markus Lopez MD Work Phone: 1(135)[address] [place], [place] 4184412-26-2024 10:01-0500 Respiratory rate18 /minYinka Lopez MD Work Phone: 1(419)[address] [place], [place] 4184412-26-2024 10:01-0500 SaO2% (BldA) [Mass fraction]97 %Yinka Lopez MD Work Phone: 1(739)[address] [place], [place] 4184412-26-2024 10:01-0500 Systolic blood leftbbel953 mm[Hg]Yinka Lopez MD Work Phone: 1(667)[address] [place], [place] 4184412-23-2024 07:07-0500 Body .48 cmYinka Lopez MD Work Phone: 1(956)[address] [place], [place] 4184412-23-2024 07:07-0500 Body ebbeoc75.56 kgYinka Lopez MD Work Phone: 1(150)[address] [place], [place] 4184412-20-2024 10:33-0500 Body bxvaxv558.48 cmYinka Lopez MD Work Phone: 1(830)[address] [place], [place] 4184412-20-2024 10:33-0500 Body mass index (BMI) [Ratio]33 kg/g6FcqvxYinka Lopez MD Work Phone: 1(505)[address] [place], [place] 4184412-20-2024 10:33-0500 Body jntmtimrkhy03.2 [degF]Yinka Lopez MD Work Phone: 1(169)[address] [place], [place] 4184412-20-2024 10:33-0500 Body pbnlna33.1 kgYinka Lopez MD Work Phone: 1(278)[address] [place], [place] 4184412-20-2024 10:33-0500 Diastolic blood lffjzjhy27 mm[Hg]Yinka Lopez MD Work Phone: 1(230)[address] [place], [place] 4184412-20-2024 10:33-0500 Heart rate79 /minYinka Lopez MD Work Phone: 1(688)[address] [place], [place] 4184412-20-2024 10:33-0500 Respiratory rate16 /minYinka Lopez MD Work Phone: 1(500)[address] [place], [place] 4184412-20-2024 10:33-0500 SaO2% (BldA) [Mass fraction]96 %Yinka Lopez MD Work Phone: 1(494)[address] [place], [place] 4184412-20-2024 10:33-0500 Systolic blood mm[Hg]Yinka Lopez MD Work Phone: 1(545)[address] [place], [place] 4184412-04-2024 14:51-0500 Body obanfo988.48 cmYinka Lopez MD Work Phone: 1(730)[address] [place], [place] 4184412-04-2024 14:51-0500 Body mass index (BMI) [Ratio]33 kg/u9RwrkgYinka Lopez MD Work Phone: 1(473)[address] [place], [place] 4184412-04-2024 14:51-0500 Body twzwcsxnniz18.9 [degF]Yinka Lopez MD Work Phone: 1(670)[address] [place], [place] 4184412-04-2024 14:51-0500 Body zgzkso07.1 kgYinka Lopez MD Work Phone: 1(652)[address] [place], [place] 4184412-04-2024 14:51-0500 Diastolic blood lybmxmru44 mm[Hg]Yinka Lopez MD Work Phone: 1(790)[address] [place], [place] 4184412-04-2024 14:51-0500 Heart rate79 /minYinka Lopez MD Work Phone: 1(559)[address] [place], [place] 4184412-04-2024 14:51-0500 Respiratory rate16 /minYinka Lopez MD Work Phone: 1(088)[address] [place], [place] 4184412-04-2024 14:51-0500 SaO2% (BldA) [Mass fraction]97 %Yinka Lopez MD Work Phone: 1(872)[address] [place], [place] 4184412-04-2024 14:51-0500 Systolic blood pnrgszna80 mm[Hg]Yinka Lopez MD Work Phone: 1(198)[address] [place], [place] 4184411-14-2024 09:53-0500 Body nxnuct441.48 cmYinka Lopez MD Work Phone: 1(351)[address] [place], [place] 4184411-14-2024 09:53-0500 Body mass index (BMI) [Ratio]33 kg/c2FftkrYinka Lopez MD Work Phone: 1(285)[address] [place], [place] 4184411-14-2024 09:53-0500 Body laragfijear06.1 [degF]Yinka Lopez MD Work Phone: 1(648)[address] [place], [place] 4184411-14-2024 09:53-0500 Body .1 kgYinka Lopez MD Work Phone: 1(819)[address] [place], [place] 4184411-14-2024 09:53-0500 Diastolic blood ajwywxbh22 mm[Hg]Yinka Lopez MD Work Phone: 1(590)[address] [place], [place] 4184411-14-2024 09:53-0500 Heart rate85 /minYinka Lopez MD Work Phone: 1(823)[address] [place], [place] 4184411-14-2024 09:53-0500 Respiratory rate16 /minYinka Lopez MD Work Phone: 1(161)[address] [place], [place] 4184411-14-2024 09:53-0500 SaO2% (BldA) [Mass fraction]98 %Yinka Lopez MD Work Phone: 1(495)[address] [place], [place] 4184411-14-2024 09:53-0500 Systolic blood mm[Hg]Yinka Lopez MD Work Phone: 1(117)[address] [place], [place] 4184411-13-2024 10:15-0500 Body zejatb931.48 cmYinka Lopez MD Work Phone: 1(373)[address] [place], [place] 4184411-13-2024 10:15-0500 Body mass index (BMI) [Ratio]34.2 kg/y1AlvcgYinka Lopez MD Work Phone: 1(441)[address] [place], [place] 4184411-13-2024 10:15-0500 Body dpctyp40.82 kgYinka Lopez MD Work Phone: 1(954)[address] [place], [place] 4184411-05-2024 12:45-0500 Body mass index (BMI) [Ratio]33.73 kg/u5BdrdbLisette GUTIERREZ Work Phone: [facility]11-05-2024 12:45-0500 Body lulbrcepbkg88.8 [degF]Lisette Gregorio [employer] TECHNOLOGIST-[employer] MACHINE [employer]TER Work Phone: [phone])[address] [place], [place] 1801711-05-2024 12:45-0500 Body .2 kgLisette Saleemer [employer] TECHNOLOGIST-BIND[employer] MACHINE SETTER Work Phone: [phone])[address] [place], [place] 1801711-05-2024 12:45-0500 Diastolic blood mm[Hg]Lisette Perkins F[employer] TECHNOLOGIST-BINDERY MACHINE SETTER Work Phone: 1(216)[address]11-05-2024 12:45-0500 Heart rate80 /minLinda Gregorio FIB[employer] TECHNOLOGIST-BINDERY MACHINE SETTER Work Phone: [phone])[address] [place], [place] 1801711-05-2024 12:45-0500 Respiratory rate16 /minLinda Gregorio FIB[employer] TECHNOLOGIST-BINDERY MACHINE SETTER Work Phone: [phone])[address] [place], [place] 1801711-05-2024 12:45-0500 SaO2% (BldA) [Mass fraction]99 %Lisette Saleemer [employer] TECHNOLOGIST-BINDERY MACHINE SETTER Work Phone: [phone])[address] [place], [place] 1801711-05-2024 12:45-0500 Systolic blood mm[Hg]Lisette Gregorio [employer] TECHNOLOGIST-BINDERY MACHINE SETTER Work Phone: 1216)[address] [place], [place] 1801710-25-2024 09:15-0400 Body igiija450.48 cmMD Yinka Lopez Work Phone: [phone]10-25-2024 09:15-0400 Body mass index (BMI) [Ratio]34.2 kg/m2MD Yinka Lopez Work Phone: [facility]10-25-2024 09:15-0400 Body gripqofltuz29.4 [degF]MD Yinka Lopez Work Phone: [phone]10-25-2024 09:15-0400 Body sckqyr39 kgMD Yinka Lopez Work Phone: [facility]10-25-2024 09:15-0400 Diastolic blood rphkygeq70 mm[Hg]MD Yinka Lopez Work Phone: [facility]10-25-2024 09:15-0400 Heart rate67 /minMD Burks Berto Work Phone: [phone])[facility]268[facility]10-25-2024 09:15-0400 Systolic blood wllvmjig455 mm[Hg]MD Yinka Thomaster Work Phone: [phone]10-24-2024 14:49-0400 Body oboiwb967.5 cmFredric ItzTransposagen Biopharmaceuticalstz DO Work Phone: [facility]Yvffxznfci95-82-1712 14:49-0400Body mass index (BMI) [Ratio]34.39 kg/w8Yyhpncj Itzkowitz DO Work Phone: [facility] LouisKizavrqonf93-24-7648 14:49-0400Body vcaaaz02.28 kgFredric Itzkowitz DO Work Phone: [phone])[facility]-1016[facility] LouisYczmenxrul50-50-6156 13:59-0400Body ujfptx853.5 cmAmy Warchol PARK MANAGER Work Phone: [facility] LouisEogpiazefg62-36-4483 13:59-0400Body mass index (BMI) [Ratio]33.29 kg/m2Amy Warchol PARK MANAGER Work Phone: [facility] LouisPmkfjayues30-73-2226 13:59-0400Body temperature 98.1 [degF]Fabiola Warchol PARK MANAGER Work Phone: [facility] LouisNgftppxxkb26-95-0031 13:59-0400Body upmagy73.56 kgAmy Warchol PARK MANAGER Work Phone: [facility] LouisSjtfbuycnp64-99-0514 13:59-0400Diastolic blood ggayhtpa71 mm[Hg]Fabiola Warchol PARK MANAGER Work Phone: [facility] LouisQwoaccyomn22-79-2526 13:59-0400Heart rate73 /min Fabiola Warchol PARK MANAGER Work Phone: [facility] LouisSvqqfijlkn43-51-1285 13:59-5247FlZ3% (BldA) [Mass fraction]98 %Fabiola Warchol PARK MANAGER Work Phone: [facility] LouisRdurlvbuyf10-20-2154 13:59-0400Systolic blood ygfjbqqu992 mm[Hg]Fabiola Deepali PARK MANAGER Work Phone: [facility] LouisAoopgbekiz86-98-9800 08:27-0400Body mass index (BMI) [Ratio]34.64 kg/m2Supa Lindquist MD PhD Work Phone: 12161-[facility]10-15-2024 08:27-0400 Body wdsissybmol05.3 [degF]Supa Lindquist MD PhD Work Phone: [phone]10-15-2024 08:27-0400 Body zbqqmy93.4 kgSupa Lindquist MD PhD Work Phone: [phone]10-15-2024 08:27-0400 Diastolic blood bxdgihwd39 mm[Hg]Supa Lindquist MD PhD Work Phone: [phone] [place], [place] 3273210-15-2024 08:27-0400 Heart rate72 /Lakhwinder Lindquist MD PhD Work Phone: [phone] [place], [place] 3273210-15-2024 08:27-0400 Respiratory rate16 /Lakhwinder Lindquist MD PhD Work Phone: [phone]10-15-2024 08:27-0400 SaO2% (BldA) [Mass fraction]99 %Supa Lindquist MD PhD Work Phone: [phone] [place], [place] 3273210-15-2024 08:27-0400 Systolic blood wglfkyzz879 mm[Hg]Supa Lindquist MD PhD Work Phone: [phone])[address] [place], [place] 3273209-24-2024 12:59-0400 Body mass index (BMI) [Ratio]32.76 kg/z9VwjngLisette Perkins APRN-BINDERY MACHINE SETTER Work Phone: [phone]09-24-2024 12:59-0400 Body huyivooyzwu36.6 [degF]Lisette Gregorio FIBRE TECHNOLOGIST-BINDERY MACHINE SETTER Work Phone: [facility]09-24-2024 12:59-0400 Body wpazmy71.83 kgCamilada Gregorio FIBRE TECHNOLOGIST-BINDERY MACHINE SETTER Work Phone: [facility]09-24-2024 12:59-0400 Diastolic blood mm[Hg]Lisette Gregorio FIBRE TECHNOLOGIST-BINDERY MACHINE SETTER Work Phone: [facility]09-24-2024 12:59-0400 Heart rate77 /minLinda Gregorio FIBRE TECHNOLOGIST-BINDERY MACHINE SETTER Work Phone: [facility]09-24-2024 12:59-0400 Respiratory rate16 /minLinda Gregorio FIBRE TECHNOLOGIST-BINDERY MACHINE SETTER Work Phone: [facility]09-24-2024 12:59-0400 SaO2% (BldA) [Mass fraction]100 %Lisette Saleemer FIBRE TECHNOLOGIST-BINDERY MACHINE SETTER Work Phone: [facility]09-24-2024 12:59-0400 Systolic blood rtxziopp549 mm[Hg]Lisette Gregorio FIBRE TECHNOLOGIST-BINDERY MACHINE SETTER Work Phone: [facility]09-16-2024 10:00-0400 Body boelmo422.5 cmJuan J Mendez MD Work Phone: [facility]09-16-2024 10:00-0400Body mass index (BMI) [Ratio]32.38 kg/m2Juan J Mendez MD Work Phone: [facility]09-16-2024 10:00-0400Body skqjdi14.3 kgJuan J Mendez MD Work Phone: [facility]09-16-2024 10:00-0400Diastolic blood rnyjwrwy01 mm[Hg]Juan J Mendez MD Work Phone: [facility]09-16-2024 10:00-0400Heart rate76 /min Juan J Mendez MD Work Phone: [facility]09-16-2024 10:00-0400Systolic blood zwvzehie130 mm[Hg]Juan J Mendez MD Work Phone: [facility]09-03-2024 08:51-0400Body mass index (BMI) [Ratio]31.42 kg/m2Supa Lindquist MD PhD Work Phone: [facility]09-03-2024 08:51-0400 Body opkpxueevph02.3 [degF]Supa Lindquist MD PhD Work Phone: [phone]09-03-2024 08:51-0400 Body .57 kgSupa Lindquist MD PhD Work Phone: [phone]09-03-2024 08:51-0400 Diastolic blood dtxywinf11 mm[Hg]Supa Lindquist MD PhD Work Phone: [facility]09-03-2024 08:51-0400 Heart rate76 /Lakhwinder Lindquist MD PhD Work Phone: [phone]09-03-2024 08:51-0400 Respiratory rate16 /Lakhwinder Lindquist MD PhD Work Phone: [facility]09-03-2024 08:51-0400 SaO2% (BldA) [Mass fraction]100 %Supa Lindquist MD PhD Work Phone: [facility]09-03-2024 08:51-0400 Systolic blood anfftvth472 mm[Hg]Supa Lindquist MD PhD Work Phone: [phone]08-28-2024 09:20-0400 Body biblpy107.48 cmMD Ez Delgado Work Phone: [facility]08-28-2024 09:20-0400 Body mass index (BMI) [Ratio]30.7 kg/m2MD Ez Delgado Work Phone: [facility]08-28-2024 09:20-0400 Body .5 [degF]MD Ez Delgado Work Phone: [facility]08-28-2024 09:20-0400 Body sntzun66.2 kgMD Ez Delgado Work Phone: [facility]08-28-2024 09:20-0400 Diastolic blood pressure6 mm[Hg]MD Ez Delgado Work Phone: [facility]08-28-2024 09:20-0400 Diastolic blood xitqcxni09 mm[Hg]MD Ez Delgado Work Phone: [facility]08-28-2024 09:20-0400 Heart rate71 /minMD Ez Delgado Work Phone: [facility]08-28-2024 09:20-0400 Respiratory rate16 /minMD Ez Delgado Work Phone: [facility]08-28-2024 09:20-0400 SaO2% (BldA) [Mass fraction]98 %MD Ez Delgado Work Phone: [facility]08-28-2024 09:20-0400 Systolic blood kzystxuj442 mm[Hg]MD Ez Delgado Work Phone: [facility]08-27-2024 09:15-0400 Body imryrn092.48 cmMD Ez Delgado Work Phone: [facility]08-27-2024 09:15-0400 Body mass index (BMI) [Ratio]29.4 kg/m2MD Ez Delgado Work Phone: [facility]08-27-2024 09:15-0400 Body mkpymqwbjkj85.3 [degF]MD Ez Delgado Work Phone: [facility]08-27-2024 09:15-0400 Body bsrivg85.02 kgMD Ez Delgado Work Phone: [facility]08-27-2024 09:15-0400 Diastolic blood mgjmgssa16 mm[Hg]MD Ez Delgado Work Phone: [facility]08-27-2024 09:15-0400 Heart rate75 /minMD Ez Delgado Work Phone: [facility]08-27-2024 09:15-0400 SaO2% (BldA) [Mass fraction]96 %MD Ez Delgado Work Phone: [facility]08-27-2024 09:15-0400 Systolic blood mm[Hg]MD Ez Delgado Work Phone: [address] [place], [place] 2121308-26-2024 10:11-0400 Body .48 cmMD Ez Delgado Work Phone: [phone] [place], [place] 9705008-26-2024 10:11-0400 Body mass index (BMI) [Ratio]29.4 kg/m2MD Ez Delgado Work Phone: [phone] [place], [place] 9705008-26-2024 10:11-0400 Body iccpdaownpf50.4 [degF]MD Ez Delgado Work Phone: [facility]08-26-2024 10:11-0400 Body lncidk03.02 kgMD Ez Delgado Work Phone: [facility]08-26-2024 10:11-0400 Diastolic blood esxbnorx53 mm[Hg]MD Ez Delgado Work Phone: [facility]08-26-2024 10:11-0400 Heart rate72 /minMD Ez Delgado Work Phone: [facility]08-26-2024 10:11-0400 Respiratory rate20 /minMD Ez Delgado Work Phone: [facility]08-26-2024 10:11-0400 SaO2% (BldA) [Mass fraction]97 %MD Ez Delgado Work Phone: [facility]08-26-2024 10:11-0400 Systolic blood cvoufyqp208 mm[Hg]MD Ez Delgado Work Phone: [facility]08-19-2024 14:56-0400 Body fmdexy281.5 cmAradha Palumbo PARK MANAGER Work Phone: [facility]Qpzfdzqsqf51-81-1299 14:56-0400Body mass index (BMI) [Ratio]28.72 kg/m2Amy Omidchol PARK MANAGER Work Phone: [facility] LouisCgnyyomgzo01-55-1591 14:56-0400Body temperature 97.2 [degF]Fabiola Annechol PARK MANAGER Work Phone: [facility] LouisMufkaatnoc00-06-0601 14:56-0400Body vvrybs72.22 kgFabiola Annechol PARK MANAGER Work Phone: [facility] LouisEcagsheude38-87-2613 14:56-0400Diastolic blood xcvrmigm18 mm[Hg]Fabiola Annechol PARK MANAGER Work Phone: [facility] LouisUoiyrzjhng81-99-8035 14:56-0400Heart rate98 /min Fabiola Omidchol PARK MANAGER Work Phone: [facility] LouisEbgrfhuhpm90-48-6165 14:56-0400Respiratory rate16 /minFabiola Annechol PARK MANAGER Work Phone: [facility] LouisNfpihbqvio00-10-1632 14:56-2524SvP1% (BldA) [Mass fraction]98 %Fabiola Palumbo PARK MANAGER Work Phone: [facility] LouisRkgvgnhfyu98-77-7196 14:56-0400Systolic blood sqawtmwo630 mm[Hg]Fabiola Palumbo PARK MANAGER Work Phone: [facility] LouisUoegryckzk74-82-1625 13:21-0400Body ojjweo742.48 cmMD Ez Delgado Work Phone: [facility]07-29-2024 13:21-0400 Body mass index (BMI) [Ratio]28 kg/m2MD Ez Delgado Work Phone: [facility]07-29-2024 13:21-0400 Body gmozfb60.39 kgMD Ez Delgado Work Phone: [facility]07-09-2024 13:12-0400 Body mass index (BMI) [Ratio]30.38 kg/m2Supa Lindquist MD PhD Work Phone: [phone]07-09-2024 13:12-0400 Body txecllithwh72.5 [degF]Supa Lindquist MD PhD Work Phone: [phone]07-09-2024 13:12-0400 Body zlvzto64.03 kgSupa Lindquist MD PhD Work Phone: [phone]07-09-2024 13:12-0400 Diastolic blood xzqgivas85 mm[Hg]Supa Lindquist MD PhD Work Phone: [phone] [place], [place] 3273207-09-2024 13:12-0400 Heart rate69 /Lakhwinder Lindquist MD PhD Work Phone: 1216848-[facility]07-09-2024 13:12-0400 Respiratory rate16 /Lakhwinder Lindquist MD PhD Work Phone: [phone] [place], [place] 3273207-09-2024 13:12-0400 SaO2% (BldA) [Mass fraction]97 %Supa Lindquist MD PhD Work Phone: [phone] [place], [place] 6622707-09-2024 13:12-0400 Systolic blood mm[Hg]Supa Lindquist MD PhD Work Phone: [phone]06-18-2024 14:00-0400 Body ybbvfjmbrwg77.8 [degF]MD Yinka Lopez Work Phone: [facility]06-18-2024 14:00-0400 Diastolic blood cnkwehae32 mm[Hg]MD Yinka Loepz Work Phone: [facility]06-18-2024 14:00-0400 Heart rate88 /minMD Yinka Lopez Work Phone: [facility]06-18-2024 14:00-0400 Respiratory rate16 /minMD Yinka Lopez Work Phone: [phone] [place], [place] 4184406-18-2024 14:00-0400 SaO2% (BldA) [Mass fraction]99 %MD Yinka Lopez Work Phone: [phone] [place], [place] 4184406-18-2024 14:00-0400 Systolic blood zdqqgbga253 mm[Hg]MD Yinka Lopez Work Phone: [phone])[address] [place], [place] 4184406-18-2024 06:00-0400 Body unbgme48.6 kgMD Yinka Thomaster Work Phone: 1(195)[address] [place], [place] 4184406-17-2024 16:09-0400 Body gfymov508.48 cmMD Yinka Lopez Work Phone: 1(487)[address] [place], [place] 4184406-17-2024 04:00-0400 Inhaled oxygen flow rate2 L/minMD Yinka Thomaster Work Phone: 1(978)[address] [place], [place] 4184406-09-2024 23:29-0400 Body growyjcoqpc68.7 [degF]MD Yinka Lopez Work Phone: 1(517)[address] [place], [place] 4184406-09-2024 22:18-0400 Diastolic blood izrxxnrj46 mm[Hg]MD Yinka Lopez Work Phone: 1(488)[address] [place], [place] 4184406-09-2024 22:18-0400 Heart escv446 /minMD Yinka Lopez Work Phone: 1(983)[address] [place], [place] 4184406-09-2024 22:18-0400 Inhaled oxygen flow rate2 L/minMD Yinka Lopez Work Phone: 1(468)[address] [place], [place] 4184406-09-2024 22:18-0400 Respiratory rate20 /minMD Yinka Lopez Work Phone: [phone] [place], [place] 4184406-09-2024 22:18-0400 SaO2% (BldA) [Mass fraction]95 %MD Yinka Lopez Work Phone: 1(227)[address] [place], [place] 4184406-09-2024 22:18-0400 Systolic blood zxhwbadt426 mm[Hg]MD Yinka Lopez Work Phone: 1(452)[address] [place], [place] 4184406-09-2024 17:07-0400 Body gizvsh102.48 cmMD Yinka Thomaster Work Phone: 1(241)[address] [place], [place] 4184406-09-2024 17:07-0400 Body cwxbau92 kgMD Yinka Thomaster Work Phone: 1(209)[address] [place], [place] 4184405-23-2024 13:43-0400 Body ozoecc208.48 cmMD Yinka Thomaster Work Phone: 1(859)[address] [place], [place] 4184405-23-2024 13:43-0400 Body mass index (BMI) [Ratio]30.2 kg/m2MD Yinka Thomaster Work Phone: [phone])[address] [place], [place] 4184405-23-2024 13:43-0400 Body gnbgfpwmqal22.1 [degF]MD Yinka Lopez Work Phone: 1(265)[address] [place], [place] 4184405-23-2024 13:43-0400 Body aketpq09 kgMD Yinka Thomaster Work Phone: 1(445)[address] [place], [place] 4184405-23-2024 13:43-0400 Diastolic blood zycwipfg88 mm[Hg]MD Yinka Lopez Work Phone: 1(120)[address] [place], [place] 4184405-23-2024 13:43-0400 Heart rate74 /minMD Yinka Lpoez Work Phone: 1(517)[address] [place], [place] 4184405-23-2024 13:43-0400 Systolic blood zcinbpcc255 mm[Hg]MD Yinka Lopez Work Phone: 1(375)[address] [place], [place] 4184405-21-2024 13:01-0400 Body mass index (BMI) [Ratio]31.03 kg/m2Supa Lindquist MD PhD Work Phone: [facility]05-21-2024 13:01-0400 Body cqzevgqrnyu12.8 [degF]Supa Lindquist MD PhD Work Phone: [facility]05-21-2024 13:01-0400 Body hicdea05.61 kgSupa Lindquist MD PhD Work Phone: [phone]05-21-2024 13:01-0400 Diastolic blood qqqgacrp92 mm[Hg]Supa Lindquist MD PhD Work Phone: [phone]05-21-2024 13:01-0400 Heart rate84 /Lakhwinder Lindquist MD PhD Work Phone: [phone]05-21-2024 13:01-0400 Respiratory rate16 /Lakhwinder Lindquist MD PhD Work Phone: [phone]05-21-2024 13:01-0400 SaO2% (BldA) [Mass fraction]97 %Supa Lindquist MD PhD Work Phone: [phone]05-21-2024 13:01-0400 Systolic blood apbtzlrq121 mm[Hg]Supa Lindquist MD PhD Work Phone: [phone]05-20-2024 11:01-0400 Body znkymm726.48 cmMD Yinka Lopez Work Phone: [phone]95[facility]05-20-2024 11:01-0400 Body mass index (BMI) [Ratio]30.2 kg/m2MD Yinka Lopez Work Phone: [phone]74[facility]05-20-2024 11:01-0400 Body wlxtwgomgtx41.5 [degF]MD Yinka Lopez Work Phone: [phone]05-20-2024 11:01-0400 Body jafczb89.84 kgMD Yinka Lopez Work Phone: [phone]05-20-2024 11:01-0400 Diastolic blood tdhtuswm95 mm[Hg]MD Yinka Lopez Work Phone: [phone]05-20-2024 11:01-0400 Heart rate92 /minMD Yinka Lopez Work Phone: 1([phone]05-20-2024 11:01-0400 Respiratory rate20 /minMD Yinka Lopez Work Phone: 1(263)965-[address] [place], [place] 1704205-20-2024 11:01-0400 SaO2% (BldA) [Mass fraction]95 %MD Yinka Lopez Work Phone: [phone]05-20-2024 11:01-0400 Systolic blood fybvdqdq116 mm[Hg]MD Yinka Lopez Work Phone: [phone]04-23-2024 09:06-0400 Body mass index (BMI) [Ratio]31.68 kg/m2Supa Lindquist MD PhD Work Phone: 1(373)513-[address] [place], [place] 3273204-23-2024 09:06-0400 Body ricmovwlfjy30.7 [degF]Supa Lindquist MD PhD Work Phone: [phone])749-[address] [place], [place] 3273204-23-2024 09:06-0400 Body xyzlup89.2 kgSupa Lindquist MD PhD Work Phone: [phone])511-[facility]04-23-2024 09:06-0400 Diastolic blood eokzxjyr14 mm[Hg]Supa Lindquist MD PhD Work Phone: [phone])886-[facility]04-23-2024 09:06-0400 Heart rate90 /Lakhwinder Lindquist MD PhD Work Phone: [phone]04-23-2024 09:06-0400 Respiratory rate18 /Lakhwinder Lindquist MD PhD Work Phone: [phone])521-[facility]04-23-2024 09:06-0400 SaO2% (BldA) [Mass fraction]99 %Supa Lindquist MD PhD Work Phone: [phone])504-[facility]04-23-2024 09:06-0400 Systolic blood wpkehavv472 mm[Hg]Supa Lindquist MD PhD Work Phone: [phone] [place], [place] 3273204-09-2024 10:00-0400 Body mass index (BMI) [Ratio]32.3 kg/x7Zrjin Gregorio FIBRE TECHNOLOGIST-BINDERY MACHINE SETTER Work Phone: [facility]04-09-2024 10:00-0400 Body bzelfkzzjuu46.6 [degF]Lisette Saleemer FIBRE TECHNOLOGIST-BINDERY MACHINE SETTER Work Phone: [facility]04-09-2024 10:00-0400 Body mymxqh18.7 kgLisette Gregorio FIBRE TECHNOLOGIST-BINDERY MACHINE SETTER Work Phone: [facility]04-09-2024 10:00-0400 Diastolic blood mooebfay83 mm[Hg]Lisetteelvin Perkins FIBRE TECHNOLOGIST-BINDERY MACHINE SETTER Work Phone: [facility]04-09-2024 10:00-0400 Heart rate82 /minLinda Gregorio FIBRE TECHNOLOGIST-BINDERY MACHINE SETTER Work Phone: [facility]04-09-2024 10:00-0400 Respiratory rate16 /minLinda Gregorio FIBRE TECHNOLOGIST-BINDERY MACHINE SETTER Work Phone: [facility]04-09-2024 10:00-0400 SaO2% (BldA) [Mass fraction]97 %Lisette Saleemer FIBRE TECHNOLOGIST-BINDERY MACHINE SETTER Work Phone: [facility]04-09-2024 10:00-0400 Systolic blood mm[Hg]Lisette Perkins FIBRE TECHNOLOGIST-BINDERY MACHINE SETTER Work Phone: [facility]03-21-2024 11:12-0400 Body iepdjd369.48 cmMD Yinka Lopez Work Phone: [facility]03-21-2024 11:12-0400 Body mass index (BMI) [Ratio]30.3 kg/m2MD Yinka Lopez Work Phone: [facility]03-21-2024 11:12-0400 Body fwjveylovlp67.3 [degF]MD Yinka Lopez Work Phone: [address] [place], [place] 7985203-21-2024 11:12-0400 Body lldmex97.29 kgMD Yinka Lopez Work Phone: [phone]03-21-2024 11:12-0400 Diastolic blood mm[Hg]MD Yinka Lopez Work Phone: 1(949)174-[address] [place], [place] 1704203-21-2024 11:12-0400 Heart rate88 /minMD Yinka Thomaster Work Phone: 1(069)810-[address] [place], [place] 1704203-21-2024 11:12-0400 Respiratory rate18 /minMD Burks Lopez Work Phone: [phone]03-21-2024 11:12-0400 SaO2% (BldA) [Mass fraction]97 %MD Yinka Lopez Work Phone: 1([phone] [place], [place] 1704203-21-2024 11:12-0400 Systolic blood ratsmnsl279 mm[Hg]MD Yinka Lopez Work Phone: 1([phone] [place], [place] 1704203-12-2024 13:22-0400 Body mass index (BMI) [Ratio]31.51 kg/y0Jizrf Gregorio FIBRE TECHNOLOGIST-BINDERY MACHINE SETTER Work Phone: [facility]03-12-2024 13:22-0400 Body hurhlaesedi67.2 [degF]Lisette Perkins FIBRE TECHNOLOGIST-BINDERY MACHINE SETTER Work Phone: [facility]03-12-2024 13:22-0400 Body scanii30.79 kgLisette Saleemer FIBRE TECHNOLOGIST-BINDERY MACHINE SETTER Work Phone: [facility]03-12-2024 13:22-0400 Diastolic blood eizofftk25 mm[Hg]Lisette Perkins FIBRE TECHNOLOGIST-BINDERY MACHINE SETTER Work Phone: [facility]03-12-2024 13:22-0400 Heart rate79 /minLinda Gregorio FIBRE TECHNOLOGIST-BINDERY MACHINE SETTER Work Phone: [facility]03-12-2024 13:22-0400 Respiratory rate16 /minLinda Gregorio FIBRE TECHNOLOGIST-BINDERY MACHINE SETTER Work Phone: [phone]03-12-2024 13:22-0400 SaO2% (BldA) [Mass fraction]96 %Lisette Gregorio FIBRE TECHNOLOGIST-BINDERY MACHINE SETTER Work Phone: [phone])943-[facility]03-12-2024 13:22-0400 Systolic blood wyspvnac473 mm[Hg]Lisette Perkins FIBRE TECHNOLOGIST-BINDERY MACHINE SETTER Work Phone: [phone] [place], [place] 3273202-27-2024 13:02-0500 Body mass index (BMI) [Ratio]32.58 kg/d5Eqabf Gregorio FIBRE TECHNOLOGIST-BINDERY MACHINE SETTER Work Phone: [phone] [place], [place] 3273202-27-2024 13:02-0500 Body xigoknjrbnl46.3 [degF]Lisette Gregorio FIBRE TECHNOLOGIST-BINDERY MACHINE SETTER Work Phone: [phone] [place], [place] 3273202-27-2024 13:02-0500 Body .4 kgLisette Gregorio FIBRE TECHNOLOGIST-BINDERY MACHINE SETTER Work Phone: [phone] [place], [place] 3273202-27-2024 13:02-0500 Diastolic blood jzcnxmpo83 mm[Hg]Lisette Perkins FIBRE TECHNOLOGIST-BINDERY MACHINE SETTER Work Phone: [phone] [place], [place] 3273202-27-2024 13:02-0500 Heart rate87 /minLinda Gregorio FIBRE TECHNOLOGIST-BINDERY MACHINE SETTER Work Phone: [phone] [place], [place] 3273202-27-2024 13:02-0500 Respiratory rate18 /minLinda Gregorio FIBRE TECHNOLOGIST-BINDERY MACHINE SETTER Work Phone: [phone] [place], [place] 3273202-27-2024 13:02-0500 SaO2% (BldA) [Mass fraction]97 %Lisette Gregorio FIBRE TECHNOLOGIST-BINDERY MACHINE SETTER Work Phone: [phone] [place], [place] 3273202-27-2024 13:02-0500 Systolic blood gylgvdfn576 mm[Hg]Lisette Perkins FIBRE TECHNOLOGIST-BINDERY MACHINE SETTER Work Phone: 12166-[address] [place], [place] 3273202-15-2024 15:54-0500 Diastolic blood tnoerjdw65 mm[Hg]MD Yinka Lopez Work Phone: [phone]02-15-2024 15:54-0500 Heart rate83 /minMD Yinka Thomaster Work Phone: [phone]02-15-2024 15:54-0500 Respiratory rate18 /minMD Yinka Thomaster Work Phone: [phone])[address] [place], [place] 4184402-15-2024 15:54-0500 SaO2% (BldA) [Mass fraction]95 %MD Yinka Lopez Work Phone: 1(691)[address] [place], [place] 4184402-15-2024 15:54-0500 Systolic blood sxzjjpru472 mm[Hg]MD Yinka Lopez Work Phone: [phone] [place], [place] 4184402-15-2024 14:11-0500 Body seozeqleuhs88.8 [degF]MD Yinka Lopez Work Phone: 1(519)[address] [place], [place] 4184402-15-2024 11:59-0500 Body pqxaon608.48 cmMD Yinka Thomaster Work Phone: 1(591)[address] [place], [place] 4184402-15-2024 11:59-0500 Body .3 kgMD Yinka Thomaster Work Phone: 1(785)[address] [place], [place] 4184401-26-2024 11:40-0500 Body mass index (BMI) [Ratio]32.76 kg/i2PpjnfLisette Perkins FIBRE TECHNOLOGIST-BINDERY MACHINE SETTER Work Phone: [facility]01-26-2024 11:40-0500 Body dutzflhkqpn13.6 [degF]Lisette Perkins [employer] TECHNOLOGIST-BINDERY MACHINE SETTER Work Phone: [facility]01-26-2024 11:40-0500 Body uvaewa91.83 kgLisette Perkins FIBRE TECHNOLOGIST-BINDERY MACHINE SETTER Work Phone: [facility]01-26-2024 11:40-0500 Diastolic blood ctpwecyw16 mm[Hg]Lisette Perkins [employer] TECHNOLOGIST-BINDERY MACHINE SETTER Work Phone: 1([phone] [place], [place] 3273201-26-2024 11:40-0500 Heart rate78 /minLinda Gregorio F[employer]RE TECHNOLOGIST-BINDERY MACHINE SETTER Work Phone: [phone] [place], [place] 3273201-26-2024 11:40-0500 Respiratory rate16 /minLinda Gregorio F[employer] TECHNOLOGIST-BINDERY MACHINE SETTER Work Phone: [phone] [place], [place] 3273201-26-2024 11:40-0500 SaO2% (BldA) [Mass fraction]100 %Lisette Perkins [employer] TECHNOLOGIST-BINDERY MACHINE SETTER Work Phone: [phone]01-26-2024 11:40-0500 Systolic blood mtrsiews785 mm[Hg]Lisette Saleemer [employer] TECHNOLOGIST-BINDERY MACHINE SETTER Work Phone: 1(216)[address]01-24-2024 06:18-0500 Body qaiikpgfjww96.6 [degF]Supa Lindquist MD PhD Work Phone: 1(216)0-[address] [place], [place] 3273201-24-2024 06:18-0500 Diastolic blood jalmymvg99 mm[Hg]Supa Lindquist MD PhD Work Phone: 1216)[facility] [place], [place] 3273201-24-2024 06:18-0500 Heart rate73 /Lakhwinder Lindquist MD PhD Work Phone: 1(216)[address] [place], [place] 1801701-24-2024 06:18-0500 Respiratory rate18 /Lakhwinder Lindquist MD PhD Work Phone: 1(216)7-[address] [place], [place] 3273201-24-2024 06:18-0500 SaO2% (BldA) [Mass fraction]95 %Supa Lindquist MD PhD Work Phone: 1216)[address] [place], [place] 1801701-24-2024 06:18-0500 Systolic blood uqnudbax127 mm[Hg]Spua Lindquist MD PhD Work Phone: 1(216)[address] [place], [place] 1801701-20-2024 06:09-0500 Body mass index (BMI) [Ratio]31.31 kg/m2Supa Lindquist MD PhD Work Phone: [facility]01-20-2024 06:09-0500 Body .3 kgSupa Lindquist MD PhD Work Phone: [facility]01-17-2024 14:31-0500 Body ofwbka436.1 cmSupa Lindquist MD PhD Work Phone: [facility]12-28-2023 11:29-0500 Body otqovk47.97 kgMD Yinka Lopez Work Phone: 1(220)[address] [place], [place] 4184412-28-2023 08:26-0500 Body timyodwhugq36.5 [degF]MD Yinka Lopez Work Phone: 1(397)[address] [place], [place] 4184412-28-2023 08:26-0500 Diastolic blood ijhckali64 mm[Hg]MD Yinka Lopez Work Phone: 1(696)[address] [place], [place] 4184412-28-2023 08:26-0500 Heart rate66 /minMD Yinka Lopez Work Phone: 1(792)[address] [place], [place] 4184412-28-2023 08:26-0500 Respiratory rate16 /minMD Yinka Lopez Work Phone: 1(294)[address] [place], [place] 4184412-28-2023 08:26-0500 SaO2% (BldA) [Mass fraction]99 %MD Yinka Lopez Work Phone: 1(225)[address] [place], [place] 4184412-28-2023 08:26-0500 Systolic blood iwxlalgi390 mm[Hg]MD Yinka Lopez Work Phone: 1(332)[address] [place], [place] 4184412-21-2023 11:30-0500 Body jhgumu811.48 cmMD Yinka Lopez Work Phone: 1(604)[address] [place], [place] 4184412-21-2023 11:30-0500 Diastolic blood emygikfj03 mm[Hg]MD Yinka Lopez Work Phone: 1(178)[address] [place], [place] 4184412-21-2023 11:30-0500 Systolic blood pofzyqig081 mm[Hg]MD Yinka Lopez Work Phone: 1(388)[address] [place], [place] 4184412-20-2023 11:32-0500 Body .92 kgMD Yinka Thomaster Work Phone: 1(242)[address] [place], [place] 4184412-20-2023 11:32-0500 Diastolic blood rrhticda65 mm[Hg]MD Yinka Lopez Work Phone: 1(113)[address] [place], [place] 4184412-20-2023 11:32-0500 Heart rate82 /minMD Burks Lopez Work Phone: 1(173)[address] [place], [place] 4184412-20-2023 11:32-0500 Respiratory rate16 /minMD Burks Lopez Work Phone: 1(167)[address] [place], [place] 4184412-20-2023 11:32-0500 SaO2% (BldA) [Mass fraction]98 %MD Yinka Lopez Work Phone: 1(625)[address] [place], [place] 4184412-20-2023 11:32-0500 Systolic blood vacecuox793 mm[Hg]MD Yinka Lopez Work Phone: 1(185)[address] [place], [place] 4184412-05-2023 10:29-0500 Body mass index (BMI) [Ratio]31.96 kg/m2Supa Lindquist MD PhD Work Phone: [phone]12-05-2023 10:29-0500 Body xtilggrclav78.8 [degF]Supa Lindquist MD PhD Work Phone: [phone]12-05-2023 10:29-0500 Body vapzvj35.69 kgSupa Lindquist MD PhD Work Phone: [phone]12-05-2023 10:29-0500 Diastolic blood mm[Hg]Supa Lindquist MD PhD Work Phone: [phone]12-05-2023 10:29-0500 Heart rate81 /minSupa Lindquist MD PhD Work Phone: [phone]12-05-2023 10:29-0500 Respiratory rate20 /minSupa Lindquist MD PhD Work Phone: [facility]12-05-2023 10:29-0500 SaO2% (BldA) [Mass fraction]99 %Supa Lindquist MD PhD Work Phone: [facility]12-05-2023 10:29-0500 Systolic blood niogncrv015 mm[Hg]Supa Lindquist MD PhD Work Phone: [phone]11-11-2023 13:12-0500 Body rihogsldlbe18 [degF]MD Yinka Lopez Work Phone: 1(027)[address] [place], [place] 4184411-11-2023 13:12-0500 Diastolic blood augmyhcy31 mm[Hg]MD Yinka Lopez Work Phone: 1(481)[address]11-11-2023 13:12-0500 Heart rate87 /minMD Yinka Lopez Work Phone: 1(352)[address] [place], [place] 4184411-11-2023 13:12-0500 Respiratory rate18 /minMD Yinka Lopez Work Phone: 1(115)[address] [place], [place] 4184411-11-2023 13:12-0500 SaO2% (BldA) [Mass fraction]96 %MD Yinka Lopez Work Phone: 1(648)[address]11-11-2023 13:12-0500 Systolic blood tasgbgax290 mm[Hg]MD Yinka Lopez Work Phone: 1(112)[address]11-11-2023 07:58-0500 Body .48 cmMD Yinka Lopez Work Phone: 1(909)[address]11-11-2023 07:58-0500 Body eowxoa17 kgMD Yinka Lopez Work Phone: 1(817)[address] [place], [place] 4184411-07-2023 09:00-0500 Body mass index (BMI) [Ratio]32.38 kg/j6Amjus Gregorio FIBRE TECHNOLOGIST-BINDERY MACHINE SETTER Work Phone: 1(216)[address] [place], [place] 6133211-07-2023 09:00-0500 Body kixvpgvaqjx32.7 [degF]Lisette Perkins [employer] TECHNOLOGIST-BINDERY MACHINE SETTER Work Phone: 1(216)[address] [place], [place] 6133211-07-2023 09:00-0500 Body .7 kgLisette Gregorio FIBRE TECHNOLOGIST-BINDERY MACHINE SETTER Work Phone: 1(216)[address] [place], [place] 6133211-07-2023 09:00-0500 Diastolic blood ktbitstm08 mm[Hg]Lisette Perkins FIBRE TECHNOLOGIST-BINDERY MACHINE SETTER Work Phone: 1(216)[address] [place], [place] 6133211-07-2023 09:00-0500 Heart rate83 /minCamilada Gregorio FIBRE TECHNOLOGIST-BINDERY MACHINE SETTER Work Phone: 1(216)[address] [place], [place] 6133211-07-2023 09:00-0500 Respiratory rate17 /minCamilada Gregorio FIBRE TECHNOLOGIST-BINDERY MACHINE SETTER Work Phone: 1(216)[address] [place], [place] 6133211-07-2023 09:00-0500 SaO2% (BldA) [Mass fraction]100 %Lisette Perkins FIB[employer] TECHNOLOGIST-BINDERY MACHINE SETTER Work Phone: 1(216)[address] [place], [place] 6133211-07-2023 09:00-0500 Systolic blood mm[Hg]Lisette Perkins FIBRE TECHNOLOGIST-BINDERY MACHINE SETTER Work Phone: 1(216)[address] [place], [place] 6133210-12-2023 09:00-0400 Diastolic blood ympovzva94 mm[Hg]Trae Koch MD Work Phone: [phone]([phone]10-12-2023 09:00-0400 Heart lady689 /minTrae Koch MD Work Phone: 1(271)1[facility]57[facility]10-12-2023 09:00-0400 Systolic blood ewoajrsp815 mm[Hg]Trae Koch MD Work Phone: 1(877)2[facility]39[facility]10-12-2023 08:54-0400 Body olxpebquuno49.7 [degF]Trae Koch MD Work Phone: 1(387)7[facility]76[facility]10-12-2023 08:54-0400 Respiratory rate18 /minTrae Koch MD Work Phone: [facility]10-12-2023 08:54-0400 SaO2% (BldA) [Mass fraction]96 %Trae Koch MD Work Phone: [facility]10-12-2023 07:44-0400 Body mass index (BMI) [Ratio]32.57 kg/m2Trae Koch MD Work Phone: [facility]10-12-2023 07:44-0400 Body bbbzau03.7 kgTrae Koch MD Work Phone: 1(739)[phone]10-02-2023 23:03-0400 Body zmumpw918.4 Krupa Koch MD Work Phone: [facility]09-20-2023 20:10-0400 Diastolic blood xhbuwirn08 mm[Hg]MD Yinka Lopez Work Phone: 1(180)[address] [place], [place] 4184409-20-2023 20:10-0400 Heart rate71 /minMD Yinka Lopez Work Phone: 1(782)[address] [place], [place] 4184409-20-2023 20:10-0400 Respiratory rate20 /minMD Yinka Lopez Work Phone: 1(560)[address] [place], [place] 4184409-20-2023 20:10-0400 SaO2% (BldA) [Mass fraction]98 %MD Yinka Lopez Work Phone: 1(234)[address] [place], [place] 4184409-20-2023 20:10-0400 Systolic blood oruqbsmm648 mm[Hg]MD Yinka Lopez Work Phone: 1(711)[address] [place], [place] 4184409-20-2023 13:23-0400 Body taoatc936.48 cmMD Yinka Lopez Work Phone: 1(308)[address] [place], [place] 4184409-20-2023 13:23-0400 Body spyciqekgsl01.1 [degF]MD Yinka Lopez Work Phone: 1(855)[address] [place], [place] 4184409-20-2023 13:23-0400 Body felpfe90.19 kgMD Burks Lopez Work Phone: 1(876)[address] [place], [place] 4184409-15-2023 13:20-0400 Body ahvwdxzfeod30.5 [degF]MD Yinka Lopez Work Phone: 1(537)[address] [place], [place] 4184409-15-2023 13:20-0400 Diastolic blood aiixtymz38 mm[Hg]MD Yinka Lopez Work Phone: 1(208)[address] [place], [place] 4184409-15-2023 13:20-0400 Heart rate77 /minMD Burks Lopez Work Phone: 1(415)[address] [place], [place] 4184409-15-2023 13:20-0400 Respiratory rate17 /minMD Burks Lopez Work Phone: 1(277)[address] [place], [place] 4184409-15-2023 13:20-0400 SaO2% (BldA) [Mass fraction]99 %MD Yinka Lopez Work Phone: 1(344)[address] [place], [place] 4184409-15-2023 13:20-0400 Systolic blood tmosmxtu216 mm[Hg]MD Yinka Lopez Work Phone: 1(968)[address] [place], [place] 4184409-14-2023 14:30-0400 Body .48 cmKatie Gallo Other [employer] Other 09-14-2023 14:30-0400Body mass index (BMI) [Ratio] 32.74 kg/r1Mjkhfirgt Gallo Other [employer] Other 09-14-2023 14:30-0400Body rxxqonwqhmg82.2 [degF] Katie Holder Other [employer] Other 09-14-2023 14:30-0400Body kazqnq38.19 kgKatie Gallo Other [employer] Other 09-14-2023 14:30-0400Diastolic blood qzfusldp02 mm[Hg] Katie Holder Other [employer] Other 09-14-2023 14:30-0400Systolic blood bycpvgol592 mm[Hg] Katie Holder Other [facility] [employer] Other 09-06-2023 10:43-0400Body ioaxelabudt09.7 [degF]MD Yinka Lopez Work Phone: 1(222)[address]09-06-2023 10:43-0400 Body myfwkk91.64 kgMD Yinka Lopez Work Phone: 3(369)[address] [place], [place] 4184409-06-2023 10:43-0400 Diastolic blood wouilmcw49 mm[Hg]MD Yinka Lopez Work Phone: 1(467)[address]09-06-2023 10:43-0400 Heart rate83 /minMD Yinka Thomaster Work Phone: 9(818)[address] [place], [place] 4184409-06-2023 10:43-0400 Respiratory rate16 /minMD Yinka Thomaster Work Phone: 6(599)[address] [place], [place] 4184409-06-2023 10:43-0400 SaO2% (BldA) [Mass fraction]96 %MD Yinka Lopez Work Phone: 1(114)[address]09-06-2023 10:43-0400 Systolic blood hvhocyzn535 mm[Hg]MD Yinka Lopez Work Phone: 1(413)[address] [place], [place] 4184408-09-2023 13:23-0400 Body fbeuoevvneg35.8 [degF]MD Yinka Lopez Work Phone: 1([phone]08-09-2023 13:23-0400 Body dyqnly13.64 kgMD Yinka Lopez Work Phone: 1(506)598-[address] [place], [place] 1704208-09-2023 13:23-0400 Diastolic blood jwihcnze00 mm[Hg]MD Yinka Lopez Work Phone: [phone]([phone]08-09-2023 13:23-0400 Heart rate77 /minMD Burks Lopez Work Phone: 1(483)628-[facility]08-09-2023 13:23-0400 Respiratory rate16 /minMD Burks Lopez Work Phone: 1(678)748-[address] [place], [place] 1704208-09-2023 13:23-0400 SaO2% (BldA) [Mass fraction]98 %MD Yinka Lopez Work Phone: 1([phone]08-09-2023 13:23-0400 Systolic blood qzryrovx657 mm[Hg]MD Yinka Lopez Work Phone: 1(837)023-[address] [place], [place] 1704206-15-2023 15:00-0400 Body jevgdn993.48 cmKatie Holder Other [employer] Other 06-15-2023 15:00-0400Body mass index (BMI) [Ratio] 32.74 kg/s0LeuamzxatKatie Holder Other [employer] Other 06-15-2023 15:00-0400Body xnxtwrtchon43.3 [degF] Katie Holder Other [employer] Other 06-15-2023 15:00-0400Body bdqwku89.19 kgKatie Holder Other [employer] Other 06-15-2023 15:00-0400Diastolic blood pfzwaozi66 mm[Hg] Katie Holder Other [employer] Other 06-15-2023 15:00-0400Systolic blood syjkcjqd454 mm[Hg] Katie Holder Other [facility] [employer] Other [id number] 08:56-0400Body [degF]MD Yinka Lopez Work Phone: 1(826)143[facility]22[facility]05-10-2023 08:56-0400 Body .55 kgMD Yinka Thomaster Work Phone: 1(310)[address]05-10-2023 08:56-0400 Diastolic blood stdaubro23 mm[Hg]MD Yinka Lopez Work Phone: 1(640)[address] [place], [place] 4184405-10-2023 08:56-0400 Heart rate80 /minMD Yinka Thomaster Work Phone: 1(618)[address] [place], [place] 4184405-10-2023 08:56-0400 Respiratory rate16 /minMD Yinka Lopez Work Phone: 1(076)[address] [place], [place] 4184405-10-2023 08:56-0400 SaO2% (BldA) [Mass fraction]98 %MD Yinka Lopez Work Phone: 1(515)474[facility]99[facility]05-10-2023 08:56-0400 Systolic blood ocfnxugc743 mm[Hg]MD Yinka Lopez Work Phone: 1(851)[facility]75[facility]04-26-2023 14:30-0400 Body ghbfyg118.48 cmKatie Gallo Other [facility] [employer] Other 04-26-2023 14:30-0400Body mass index (BMI) [Ratio]33.1 kg/b2IucdzevtuKatie Holder Other [facility] [employer] Other 04-26-2023 14:30-0400Body pzertenhvnh15.6 [degF] Katieignacio Holder Other [facility] [employer] Other 04-26-2023 14:30-0400Body hitrxn98.1 kgKatie Holder Other [employer] Other 04-26-2023 14:30-0400Diastolic blood mm[Hg] Katie Holder Other [facility] [employer] Other 04-26-2023 14:30-1726MnK5% (BldA) [Mass fraction]96 % Katie Holder Other [facility] [employer] Other 04-26-2023 14:30-0400Systolic blood ogzkryuc399 mm[Hg] Katie Holder Other [employer] Other 04-25-2023 11:20-0400Diastolic blood udqkgfhc73 mm[Hg] MD Yinka Lopez Work Phone: [facility]04-25-2023 11:20-0400 Heart rate69 /minMD Yinka Thomaster Work Phone: [phone]04-25-2023 11:20-0400 Respiratory rate16 /minMD Yinka Thomaster Work Phone: [facility]04-25-2023 11:20-0400 SaO2% (BldA) [Mass fraction]95 %MD Yinka Lopez Work Phone: [facility]04-25-2023 11:20-0400 Systolic blood ywuxoeji645 mm[Hg]MD Yinka Lopez Work Phone: [phone]04-25-2023 08:59-0400 Body .48 cmMD Yinka Thomaster Work Phone: [facility]04-25-2023 08:59-0400 Body xqheho19.1 kgMD Yinka Thomaster Work Phone: 1(289)[address] [place], [place] 4184404-19-2023 09:33-0400 Body mnvpdatfgfh25.8 [degF]MD Yinka Lopez Work Phone: 1(721)[address] [place], [place] 4184404-19-2023 09:33-0400 Body .55 kgMD Yinka Thomaster Work Phone: 1(891)[address] [place], [place] 4184404-19-2023 09:33-0400 Diastolic blood muamtgdo47 mm[Hg]MD Yinka Lopez Work Phone: 1(004)[address] [place], [place] 4184404-19-2023 09:33-0400 Heart rate82 /minMD Yinka Thomaster Work Phone: 1(092)[address] [place], [place] 4184404-19-2023 09:33-0400 Respiratory rate16 /minMD Yinka Thomaster Work Phone: 1(643)[address] [place], [place] 4184404-19-2023 09:33-0400 SaO2% (BldA) [Mass fraction]98 %MD Yinka Lopez Work Phone: 1(704)[address] [place], [place] 4184404-19-2023 09:33-0400 Systolic blood dvkcozqz437 mm[Hg]MD Yinka Lopez Work Phone: 1(730)[address] [place], [place] 4184403-30-2023 12:09-0400 Body sqatyxiavma62.5 [degF]MD Yinka Lopez Work Phone: 1(574)[address] [place], [place] 4184403-30-2023 12:09-0400 Diastolic blood dpibazum01 mm[Hg]MD Yinka Lopez Work Phone: 1(370)[address] [place], [place] 4184403-30-2023 12:09-0400 Heart rate86 /minMD Yinka Lopez Work Phone: 1(404)[address] [place], [place] 4184403-30-2023 12:09-0400 Respiratory rate18 /minMD Yinka Lopez Work Phone: 1(256)[address] [place], [place] 4184403-30-2023 12:09-0400 SaO2% (BldA) [Mass fraction]96 %MD Yinka Lopez Work Phone: [phone]([phone]03-30-2023 12:09-0400 Systolic blood tjjuavgt665 mm[Hg]MD Yinka Lopez Work Phone: 1(444)[address] [place], [place] 4184403-30-2023 06:00-0400 Body .1 kgMD Yinka Thomaster Work Phone: 1(070)[address] [place], [place] 4184403-29-2023 06:33-0400 Body lcqkor763.48 cmMD Yinka Thomaster Work Phone: 1(136)[address] [place], [place] 4184403-29-2023 06:20-0400 Diastolic blood hteeqdwc25 mm[Hg]MD Yinka Lopez Work Phone: 1(162)[address] [place], [place] 4184403-29-2023 06:20-0400 Heart rate86 /minMD Yinka Thomaster Work Phone: 1(982)[address] [place], [place] 4184403-29-2023 06:20-0400 Respiratory rate18 /minMD Yinka Thomaster Work Phone: 1(854)[address] [place], [place] 4184403-29-2023 06:20-0400 SaO2% (BldA) [Mass fraction]97 %MD Yinka Lopez Work Phone: 1(598)[address] [place], [place] 4184403-29-2023 06:20-0400 Systolic blood myetzacy332 mm[Hg]MD Yinka Lopez Work Phone: 1(158)[address] [place], [place] 4184403-29-2023 00:23-0400 Body otsbwo296.48 cmMD Yinka Lopez Work Phone: 1(982)[address] [place], [place] 4184403-29-2023 00:23-0400 Body extthfbsion81.8 [degF]MD Yinka Lopez Work Phone: 1(160)[address] [place], [place] 4184403-29-2023 00:23-0400 Body ckqgus51.64 kgMD Yinka Lopez Work Phone: 1(782)[address] [place], [place] 4184403-10-2023 10:43-0500 Body tpavedunlmw19.8 [degF]MD Yinka Lopez Work Phone: 1(798)[address] [place], [place] 4184403-10-2023 10:43-0500 Body sxaewq10.2 kgMD Yinka Thomaster Work Phone: 1(420)[address] [place], [place] 4184403-10-2023 10:43-0500 Diastolic blood nuyhdvaq80 mm[Hg]MD Yinka Lopez Work Phone: 1(896)[address] [place], [place] 4184403-10-2023 10:43-0500 Heart rate87 /minMD Yinka Thomaster Work Phone: 1(121)[address] [place], [place] 4184403-10-2023 10:43-0500 Respiratory rate16 /minMD Yinka Thomaster Work Phone: 1(901)[address] [place], [place] 4184403-10-2023 10:43-0500 SaO2% (BldA) [Mass fraction]98 %MD Yinka Lopez Work Phone: 1(123)[address] [place], [place] 4184403-10-2023 10:43-0500 Systolic blood ncvuijmq368 mm[Hg]MD Yinka Lopez Work Phone: 1(053)[address] [place], [place] 4184402-24-2023 09:37-0500 Body bagmmbnhtim64.8 [degF]MD Yinka Lopez Work Phone: 1(820)[address] [place], [place] 4184402-24-2023 09:37-0500 Body lqbaax02.1 kgMD Yinka Thomaster Work Phone: 1(942)[address] [place], [place] 4184402-24-2023 09:37-0500 Diastolic blood qummasds88 mm[Hg]MD Yinka Lopez Work Phone: 1(231)[address] [place], [place] 4184402-24-2023 09:37-0500 Heart rate89 /minMD Yinka Thomaster Work Phone: 1(773)[address] [place], [place] 4184402-24-2023 09:37-0500 Respiratory rate16 /minMD Yinka Thomaster Work Phone: 1(432)[address] [place], [place] 4184402-24-2023 09:37-0500 SaO2% (BldA) [Mass fraction]100 %MD Yinka Lopez Work Phone: 1(439)[address] [place], [place] 4184402-24-2023 09:37-0500 Systolic blood qxcqoxfi792 mm[Hg]MD Yinka Lopez Work Phone: 1(295)[address] [place], [place] 4184401-25-2023 10:48-0500 Body gawmmvizxzh12.8 [degF]MD Yinka Lopez Work Phone: 1(872)[address] [place], [place] 4184401-25-2023 10:48-0500 Body wvrtux27.7 kgMD Yinka Thomaster Work Phone: 1(189)[address] [place], [place] 4184401-25-2023 10:48-0500 Diastolic blood rxdszqaa30 mm[Hg]MD Yinka Lopez Work Phone: 1(157)[address] [place], [place] 4184401-25-2023 10:48-0500 Heart rate84 /minMD Yinka Thomaster Work Phone: 1(907)[address] [place], [place] 4184401-25-2023 10:48-0500 Respiratory rate16 /minMD Yinka Thomaster Work Phone: 1(259)[address] [place], [place] 4184401-25-2023 10:48-0500 SaO2% (BldA) [Mass fraction]98 %MD Yinka Lopez Work Phone: 1(259)[address] [place], [place] 4184401-25-2023 10:48-0500 Systolic blood sedwctyu629 mm[Hg]MD Yinka Lopez Work Phone: 1(229)[address] [place], [place] 4184412-28-2022 11:01-0500 Body hnisgykmlva39.8 [degF]MD Yinka Lopez Work Phone: 1(436)[address] [place], [place] 4184412-28-2022 11:01-0500 Body ywcyfc14.3 kgMD Yinka Thomaster Work Phone: 1(879)[address] [place], [place] 4184412-28-2022 11:01-0500 Diastolic blood mm[Hg]MD Yinka Lopez Work Phone: 1(452)[address] [place], [place] 4184412-28-2022 11:01-0500 Heart rate83 /minMD Yinka Lopez Work Phone: 1(419)[address] [place], [place] 4184412-28-2022 11:01-0500 Respiratory rate16 /minMD Burks Lopez Work Phone: 1(937)[address] [place], [place] 4184412-28-2022 11:01-0500 SaO2% (BldA) [Mass fraction]97 %MD Yinka Lopez Work Phone: 1(070)[address] [place], [place] 4184412-28-2022 11:01-0500 Systolic blood fqflxmsy173 mm[Hg]MD Yinka Lopez Work Phone: 1(665)[address] [place], [place] 4184412-14-2022 11:24-0500 Body xzisbg587.99 cmDC Yinka Lopez Work Phone: 1(089)[address] [place], [place] 4184412-14-2022 10:29-0500 Body .99 cmMD Yinka Lopez Work Phone: 1(588)[address] [place] 4184412-14-2022 10:29-0500 Body tueihxfeoem48.1 [degF]MD Yinka Lopez Work Phone: 1(181)[address] [place], [place] 4184412-14-2022 10:29-0500 Body fpmyhc47.9 kgMD Yinka Thomaster Work Phone: 1(304)[address] [place], [place] 4184412-14-2022 10:29-0500 Diastolic blood acozsnzb03 mm[Hg]MD Yinka Lopez Work Phone: 1(018)[address] [place], [place] 4184412-14-2022 10:29-0500 Heart rate84 /minMD Yinka Thomaster Work Phone: 1(712)[address] [place], [place] 4184412-14-2022 10:29-0500 Respiratory rate18 /minMD Yinka Thomaster Work Phone: 1(800)[address] [place] 4184412-14-2022 10:29-0500 SaO2% (BldA) [Mass fraction]98 %MD Yinka Lopez Work Phone: 1(333)[address] [place], [place] 4184412-14-2022 10:29-0500 Systolic blood xflbikzn586 mm[Hg]MD Yinka Lopez Work Phone: 1(633)[phone]12-12-2022 15:43-0500 Body nryhae957.5 cmJuan J Mendez MD Work Phone: [facility]12-12-2022 15:43-0500Body .01 kgJuan J Mendez MD Work Phone: [facility]12-12-2022 15:43-0500Diastolic blood mm[Hg]Juan J Mendez MD Work Phone: [facility]12-12-2022 15:43-0500Heart rate84 /min Juan J Mendez MD Work Phone: [facility]12-12-2022 15:43-0500Systolic blood pmkpkwan128 mm[Hg]Juan J Mendez MD Work Phone: [facility]11-23-2022 11:06-0500Body temperature 98 [degF]MD Yinka Lopez Work Phone: [phone]11-23-2022 11:06-0500 Body ymlogo98.2 kgMD Yinka Lopez Work Phone: 1(893)[address] [place], [place] 4184411-23-2022 11:06-0500 Diastolic blood dfxyelvh50 mm[Hg]MD Yinka Lopez Work Phone: [phone]11-23-2022 11:06-0500 Heart rate78 /minMD Yinka Lopez Work Phone: 1([phone] [place], [place] 1704211-23-2022 11:06-0500 Respiratory rate18 /minMD Yinka Lopez Work Phone: [phone] [place], [place] 1704211-23-2022 11:06-0500 SaO2% (BldA) [Mass fraction]98 %MD Yinka Lopez Work Phone: [phone]99[facility]11-23-2022 11:06-0500 Systolic blood jwralnet121 mm[Hg]MD Yinka Lopez Work Phone: [phone]11-16-2022 10:32-0500 Body uhbwon74.8 kgMD Yinka Thomaster Work Phone: 1(260)[address] [place], [place] 4184411-16-2022 09:57-0500 Body kxaajunkatu70 [degF]MD Yinka Lopez Work Phone: 1(068)[address] [place], [place] 4184411-16-2022 09:57-0500 Diastolic blood hvbeagev23 mm[Hg]MD Yinka Lopez Work Phone: 1(282)[address] [place], [place] 4184411-16-2022 09:57-0500 Heart rate86 /minMD Burks Lopez Work Phone: 1(662)[address] [place], [place] 4184411-16-2022 09:57-0500 Respiratory rate20 /minMD Yinka Thomaster Work Phone: 1(082)[address] [place], [place] 4184411-16-2022 09:57-0500 SaO2% (BldA) [Mass fraction]100 %MD Yinka Lopez Work Phone: 1(528)[address] [place], [place] 4184411-16-2022 09:57-0500 Systolic blood szeergzh285 mm[Hg]MD Yinka Lopez Work Phone: 1(107)[address] [place], [place] 4184410-19-2022 10:48-0400 Body lrusqstkjal39.8 [degF]MD Yinka Lopez Work Phone: 1(912)[address] [place], [place] 4184410-19-2022 10:48-0400 Body wwzces51.28 kgMD Yinka Thomaster Work Phone: 1(951)[address] [place], [place] 4184410-19-2022 10:48-0400 Diastolic blood iifwjtqm03 mm[Hg]MD Yinka Lopez Work Phone: 1(208)[address] [place], [place] 4184410-19-2022 10:48-0400 Heart rate89 /minMD Yinka Thomaster Work Phone: 1(045)[address] [place], [place] 4184410-19-2022 10:48-0400 Respiratory rate16 /minMD Yinka Thomaster Work Phone: [phone])[address] [place], [place] 4184410-19-2022 10:48-0400 SaO2% (BldA) [Mass fraction]99 %MD Yinka Lopez Work Phone: [phone] [place], [place] 4184410-19-2022 10:48-0400 Systolic blood wxssiwcl796 mm[Hg]MD Yinka Lopez Work Phone: [phone] [place], [place] 4184410-06-2022 10:40-0400 Body .4 [degF]MD Yinka Lopez Work Phone: 1([phone] [place], [place] 4184410-06-2022 10:40-0400 Body xepxnv05.95 kgMD Yinka Thomaster Work Phone: [phone] [place], [place] 4184410-06-2022 10:40-0400 Diastolic blood drutqrcv94 mm[Hg]MD Yinka Lopez Work Phone: 1(076)[address] [place], [place] 4184410-06-2022 10:40-0400 Heart rate69 /minMD Yinka Thomaster Work Phone: [phone] [place], [place] 4184410-06-2022 10:40-0400 Respiratory rate16 /minMD Yinka Thomaster Work Phone: [phone] [place], [place] 4184410-06-2022 10:40-0400 SaO2% (BldA) [Mass fraction]97 %MD Yinka Lopez Work Phone: 1(532)[address] [place], [place] 4184410-06-2022 10:40-0400 Systolic blood nosvwqdn742 mm[Hg]MD Yinka Lopez Work Phone: 1([phone] [place], [place] 4184409-09-2022 09:35-0400 Body yupxwxfvdyl63.7 [degF]MD Yinka Lopez Work Phone: 1(565)[address] [place], [place] 4184409-09-2022 09:35-0400 Body .74 kgMD Yinka Thomaster Work Phone: 1([phone] [place], [place] 4184409-09-2022 09:35-0400 Diastolic blood sdqrdlke41 mm[Hg]MD Yinka Lopez Work Phone: 1(421)[address] [place], [place] 4184409-09-2022 09:35-0400 Heart rate83 /minMD Yinka Thomaster Work Phone: 1(386)[address] [place], [place] 4184409-09-2022 09:35-0400 Respiratory rate18 /minMD Yinka Thomaster Work Phone: [phone] [place], [place] 4184409-09-2022 09:35-0400 SaO2% (BldA) [Mass fraction]97 %MD Yinka Lopez Work Phone: 1(774)[address] [place], [place] 4184409-09-2022 09:35-0400 Systolic blood mm[Hg]MD Yinka Lopez Work Phone: 1(288)[address] [place], [place] 4184409-08-2022 09:57-0400 Body gkozwcmqhdf23 [degF]MD Yinka Lopez Work Phone: 1(357)[address] [place], [place] 4184409-08-2022 09:57-0400 Body oraejn29.1 kgMD Yinka Lopez Work Phone: 1(719)[address] [place], [place] 4184409-08-2022 09:57-0400 Diastolic blood mm[Hg]MD Yinka Lopez Work Phone: 1(131)[address] [place], [place] 4184409-08-2022 09:57-0400 Respiratory rate16 /minMD Yinka Lopez Work Phone: 1(633)[address] [place], [place] 4184409-08-2022 09:57-0400 SaO2% (BldA) [Mass fraction]98 %MD Yinka Lopez Work Phone: 1(295)[address] [place], [place] 4184409-08-2022 09:57-0400 Systolic blood vyzqzkjm983 mm[Hg]MD Yinka Lopez Work Phone: 1(748)[address] [place], [place] 4184409-02-2022 11:28-0400 Heart rate69 /minMD Yinka Lopez Work Phone: 1(934)[address] [place], [place] 4184410-06-2021 11:02-0400 Body agnpnc647.99 cmMD Yinka Lopez Work Phone: 1([phone] [place], [place] 4184407-02-2021 08:45-0400 Inhaled oxygen flow rate2 L/minMD Yinka Lopez Work Phone: [facility] Encounters Encounter DateEncounter TypeCare ProviderFacilityStart: 08-28-2025 End: 61-45-8174Oqzcjplps encounterDaniel Nuvia DO [facility]Start: 08-24-2025 End: 26-11-9318Tnxehnvdd encounterDaniel Nuvia DO Work Phone: [facility]Start: 08-22-2025 End: 45-44-4718Ljdkfq outpatient visit 25 minutesDaniel Nuvia DO Work Phone: [facility] 340Comment on above:COPD with acute exacerbation (HCC) (Primary Dx); Pharyngitis, unspecified etiologyStart: 08-22-2025 End: 41-93-7643yezmimilweNNVIIE TRUITTNot AvailableStart: 08-17-2025 End: 35-26-7340mqoncboltrUORR ANGELFacility:[facility] Hospitaltart: 08-16-2025 End: 93-51-1162Gghklvhe Result EncounterFabiola Marinelli MD Work Phone: noms External Department UnsolicitedStart: 08-16-2025 End: 09-46-3000Uxcrsdca Result EncounterFabiola Marinelli MD Work Phone: noms External Department UnsolicitedStart: 08-16-2025 End: 35-99-8150Xfh Reese M MD-[facility] Work Phone: Start: 08-16-2025 End: 87-79-6098fywwiqvvooHjwor Baxter MD Work Phone: [facility] Work Phone: Start: 08-09-2025 End: 29-97-9541aiyridpdlyGaxwc Baxter MD Work Phone: [facility] Work Phone: Start: 08-09-2025 End: 51-32-0460Mzgritmsu McGraw M [facility] Work Phone: Start: 08-09-2025 End: 22-59-8336Vaxyexjg Result EncounterFabiola Marinelli MD Work Phone: noms External Department UnsolicitedStart: 08-09-2025 End: 22-51-4674Rdqlpgwm Result EncounterFabiola Marinelli MD Work Phone: noms External Department UnsolicitedStart: 08-09-2025 Fabiola Flower MD-[facility] Acute Work Phone: Start: 09-98-9853gaaihdygezBwpemzysv M McGraw [facility]: 08-02-2025 End: 66-02-9398Hkxvvqrj Result EncounterFabiola Marinelli MD Work Phone: noms External Department UnsolicitedStart: 08-02-2025 End: 00-21-7115Rxtwfmnt Result EncounterFabiola Marinelli MD Work Phone: noms External Department UnsolicitedStart: 07-27-2025 End: 80-80-2222lqjffdqdnhCldtx Baxter MD Work Phone: [facility] Work Phone: Start: 07-27-2025 End: 87-32-9133Ejw Reese M MD-[facility] Ambulatory Work Phone: Start: 07-19-2025 End: 46-65-3998Iwuuuerq Result EncounterFabiola Marinelli MD Work Phone: noms External Department UnsolicitedStart: 07-19-2025 End: 75-14-0166Vdzqpnvh Result EncounterFabiola Marinelli MD Work Phone: noms External Department UnsolicitedStart: 07-19-2025 End: 27-11-5067Hyoqb Baxter MD Work Phone: [phone]-Figyebgar Room Work Phone: Start: 07-19-2025 End: 43-23-9149Ptcfmcihn department patient visitYinka Lopez MD Work Phone: [facility] Work Phone: Start: 07-19-2025 End: 72-22-1596yhjtuzachmUjseg Baxter MD Work Phone: [facility] Work Phone: Start: 07-19-2025 End: 48-15-1934Rbpsctpof McGraw M [facility] ReadingStart: 07-12-2025 End: 45-07-0224Dvvqqhtn Result EncounterFabiola Marinelli MD Work Phone: noms External Department UnsolicitedStart: 07-12-2025 End: 92-03-4499Cojjulds Result EncounterFabiola Marinelli MD Work Phone: noms External Department UnsolicitedStart: 07-05-2025 End: 91-08-6109Bebnwqkh Result EncounterFabiola Marinelli MD Work Phone: noms External Department UnsolicitedStart: 07-05-2025 End: 67-88-2518Ugypexlq Result EncounterFabiola Marinelli MD Work Phone: noms External Department UnsolicitedStart: 07-04-2025 End: 60-89-7939uetvalubkgWidlxxq R WATERSFacility:FTMCStart: 06-22-2025 End: 09-46-2140Qffjdcwryj hospital visit by physicianStjason Ct [address] [place], [place] [address]Comment on above:Liver cell carcinomaStart: 06-22-2025 End: 11-32-4356ekmrlkghuzMPKN Ching COCHRANVeterans Health Administrationtart: 06-20-2025 End: 09-48-2907Sslwheet Result EncounterFabiola Marinelli MD Work Phone: noms External Department UnsolicitedStart: 06-20-2025 End: 26-81-5097Kzzltssz Result EncounterFabiola Marinelli MD Work Phone: noms External Department UnsolicitedStart: 06-15-2025 End: 21-32-2647Ekkavj flowsheetDaniel Nuvia DO Work Phone: [facility] 340Start: 06-15-2025 End: 35-06-6917Tlzbgy flowsheetDaniel Nuvia DO Work Phone: [facility] 340Start: 06-15-2025 End: 40-63-6047eblufpkaybWewyu Baxter MD Work Phone: [facility] Work Phone: Start: 06-15-2025 End: 17-18-2765Xye Reese M MD-[facility] Ambulatory Work Phone: Start: 06-15-2025 End: 76-06-8499Xdyzil outpatient visit 15 minutesDaniel Nuvia DO Work Phone: [facility] 340Comment on above: Preoperative clearanceStart: 06-15-2025 End: 43-49-5229Ptiqtokupgfb stateDaniel Nuvia DO Work Phone: noms HealthcareStart: 06-15-2025 End: 62-46-1491Ertwvqxuy McGraw M [facility] Palliat CareStart: 06-15-2025 End: 79-13-1945evswemngucPejmb Baxter MD Work Phone: [facility] Work Phone: Start: 06-14-2025 End: 00-87-1888Zbmvqgbl Result EncounterFabiola Marinelli MD Work Phone: noms External Department UnsolicitedStart: 06-14-2025 End: 14-68-5775Uyrqlsgg Result EncounterFabiola Marinelli MD Work Phone: noms External Department UnsolicitedStart: 06-12-2025 End: 51-27-4350Bgkbzow encounter procedurePatriccatracho VALENZUELA [facility] start: 06-12-2025 End: 95-13-8034FlxvumNjp Warchol PARK MANAGER Work Phone: noms POPULATION HEALTHComment on above: HyperchylomicronemiaStart: 06-07-2025 End: 56-52-6052Indptrpe Result EncounterFabiola Marinelli MD Work Phone: noms External Department UnsolicitedStart: 06-07-2025 End: 27-37-8108Hdrflaxe Result EncounterFabiola Marinelli MD Work Phone: noms External Department UnsolicitedStart: 06-07-2025 End: 22-29-0419TfwhjhSgs Warchol PARK MANAGER Work Phone: noms POPULATION HEALTHComment on above:Diabetes mellitus without complication (HCC); Hypertension, unspecified typeStart: 90-68-8590smwlmsaagsWYLYXIIRK CHERYL SANCHEZ Facility: [place]Start: 05-30-2025 End: 68-30-1158Rjjuqjyy Result EncounterFabiola Marinelli MD Work Phone: noms External Department UnsolicitedStart: 05-30-2025 End: 64-90-7902Fhbjhomk Result EncounterFabiola Marinelli MD Work Phone: noms External Department UnsolicitedStart: 05-30-2025 End: 84-52-4637Lce Reese M [facility] Acute Work Phone: Start: 05-30-2025 End: 73-10-0157ccaytphdbwVohkh Baxter MD Work Phone: [facility] Work Phone: Start: 05-29-2025 End: 82-20-1205cfvpexydrhMcdrh Baxter MD Work Phone: [facility] Work Phone: Start: 05-29-2025 End: 36-83-9233Uvxgskujp L Ly DO-[facility] Work Phone: Start: 05-26-2025 End: 78-64-9656xnwdhkzdgsJvrrq Baxter MD Work Phone: [facility] Work Phone: Start: 05-26-2025 End: 25-94-7059Kfntcbolr McGraw M [facility] Palliative Work Phone: Start: 05-19-2025 End: 62-70-8242Epingkbyj encounterDahoward Pedersen DO Work Phone: [facility] MEDICINEStart: 05-18-2025 Fabiola Flower MD-Ultrasound [facility] [place] Work Phone: Start: 05-18-2025 End: 34-75-8912dkltfiomauUpdhl Baxter MD Work Phone: [facility] Work Phone: Start: 05-18-2025 End: 00-13-3866Ahajlljci McGraw M [facility] Palliat CareStart: 05-17-2025 End: 28-09-8941Yqgqwpba Result EncounterFabiola Marinelli MD Work Phone: noms External Department UnsolicitedStart: 05-17-2025 End: 08-30-6224Rqvylfqe Result EncounterFabiola Marinelli MD Work Phone: noms External Department UnsolicitedStart: 05-17-2025 End: 44-70-3754ihkxcrdvtpKjypm Baxter MD Work Phone: [facility] Work Phone: Start: 05-17-2025 End: 23-47-5252Tfmqxm L Truitt DO-Lab [facility] [place] Work Phone: Start: 05-15-2025 End: 62-32-2415Rjfjgd flowsheetDaniel Nuvia DO Work Phone: [facility] MEDICINEStart: 05-15-2025 End: 12-29-2925Zwtiqj flowsheetDaniel Nuvia DO Work Phone: [facility] MEDICINEStart: 05-15-2025 End: 68-83-2303Rzvjgk outpatient visit 25 minutesDaniel Nuvia DO Work Phone: [facility] MEDICINEComment on above: Preoperative clearance (Primary Dx); Arm wound, left, initial encounterStart: 05-15-2025 End: 45-08-9455Akjtxzbsminb stateDaniel Nuvia DO Work Phone: [facility] Work Phone: Start: 05-15-2025 End: 31-47-1828yodhwycpkiIEZGTV TRUITTNot AvailableStart: 04-24-2025 End: 01-42-3051Fqepfttnz encounterJuan J Mendez MD Work Phone: [phone] InstituteComment on above:OrdersStart: 04-20-2025 End: 59-45-0202xqauwryalnLymmljkxa M McGrawFacility:[facility]art: 04-20-2025 End: 10-59-9912Dnu Reese M MD-[facility] Ambulatory Work Phone: Start: 04-17-2025 End: 92-90-7868Bcrxhqzp Result EncounterFabiola Marinelli MD Work Phone: noms External Department UnsolicitedStart: 04-17-2025 End: 84-99-5378Onvqejfy Result EncounterFabiola Marinelli MD Work Phone: noms External Department UnsolicitedStart: 04-10-2025 End: 70-26-0405Nkzdlb flowsheetDaniel Nuvia DO Work Phone: noms SEP FMStart: 04-10-2025 End: 21-21-4919Nenfzt flowsheetDaniel Nuvia DO Work Phone: noms SEP FMStart: 04-10-2025 End: 32-86-5877Mwjgzk outpatient visit 25 minutesDaniel Nuvia DO Work Phone: noms SEP FMComment on above:Contusion of rib on left side, subsequent encounter (Primary Dx); Cough, unspecified type; COPD with acute exacerbation (CMS/HCC)Start: 04-10-2025 End: 41-64-2324ethfbshxxmQADPEJ TRUITTNot AvailableStart: 03-29-2025 End: 59-12-0881twycknjkbuIOBFBS TRUITTNot AvailableStart: 03-29-2025 End: 54-58-2819Cpfasf outpatient visit 25 minutesDaniel Nuvia DO Work Phone: noms SEP FMComment on above:Acute cystitis without hematuria (Primary Dx); Gastroesophageal reflux disease without esophagitis; Recurrent candidiasis of vaginaStart: 03-29-2025 End: 94-28-2450Akxxqb flowsheetDaniel Nuvia DO Work Phone: noms SEP FMStart: 03-29-2025 End: 74-75-7192Wjwigp flowsheetDaniel Nuvia DO Work Phone: noms SEP FMStart: 03-28-2025 End: 23-88-2389Cvxuqiiq Result EncounterFabiola Marinelli MD Work Phone: noms External Department UnsolicitedStart: 03-28-2025 End: 02-82-2633Yyrqlgza Result EncounterFabiola Marinelli MD Work Phone: noms External Department UnsolicitedStart: 03-16-2025 End: 03-94-9850kukxjienzuScwfm Baxter MD Work Phone: [facility] Work Phone: Start: 03-16-2025 End: 83-14-1308Ycwjh Baxter MD Work Phone: [facility] Work Phone: Start: 61-46-5170Bheht Baxter MD Work Phone: [facility] Palliat CareStart: 50-84-0624hagnpnvqnrZxvlwumnu M McGrawFacility:[facility]art: 03-15-2025 End: 44-17-2794Cjfgsdle Result EncounterFabiola Marinelli MD Work Phone: noms External Department UnsolicitedStart: 03-15-2025 End: 88-53-2291Chapkocl Result EncounterFabiola Marinelli MD Work Phone: noms External Department UnsolicitedStart: 03-14-2025 End: 88-14-0824Daebingpw encounterLinleah Greer NP Work Phone: noms SWS UCStart: 03-13-2025 End: 08-91-5564bblcrxjeqnICGCSQN R LACONISNot AvailableStart: 03-13-2025 End: 22-14-7314Akkjdm outpatient visit 25 minutesLinleah Greer PARK MANAGER Work Phone: noms [facility] UCComment on above:Acute cystitis with hematuria (Primary Dx); DysuriaStart: 03-07-2025 End: 05-67-0949Qgucxkos Result EncounterFabiola Marinelli MD Work Phone: noms External Department UnsolicitedStart: 03-07-2025 End: 84-75-4118Mxzlsrqh Result EncounterFabiola Marinelli MD Work Phone: noms External Department UnsolicitedStart: 03-01-2025 End: 54-53-7421Mudngr flowsheetDaniel Nuvia DO Work Phone: noms SEP FMStart: 03-01-2025 End: 17-05-1274Yupkoy flowsheetDaniel Nuvia DO Work Phone: noms SEP FMStart: 03-01-2025 End: 20-74-3379Qneseif encounter procedureDaniel Nuvia DO Work Phone: noms SEP FMComment on above:Medicare annual wellness visit, subsequent (Primary Dx); Chronic obstructive pulmonary disease, unspecified COPD type ([facility]/HCC); Seasonal allergic rhinitis due to pollen; Acute recurrent maxillary sinusitisStart: 03-01-2025 End: 02-58-7335bpnloyjodcQJFVQJ TRUITTNot AvailableStart: 02-15-2025 End: 77-63-5485Bqgiomqg Result EncounterFabiola Marinelli MD Work Phone: noms External Department UnsolicitedStart: 02-15-2025 End: 71-21-1797Yljrzlgz Result EncounterFabiola Marinelli MD Work Phone: noms External Department UnsolicitedStart: 02-14-2025 End: 92-38-4229lvddnphpjeDmisc Baxter MD Work Phone: [facility] Work Phone: Start: 02-14-2025 End: 21-83-6470Lvonp Baxter MD Work Phone: [facility] Palliative Work Phone: Start: 02-03-2025 End: 16-66-8415nibyyozhyuEhrxi Baxter MD Work Phone: [facility] Work Phone: Start: 02-03-2025 End: 94-02-5386Evtle Baxter MD Work Phone: [facility] Ambulatory Work Phone: Start: 02-01-2025 End: 26-46-3479UltrwcKaylan Lopez MD Work Phone: noms sep FMComment on above:Bronchitis (Primary Dx) Start: 53-99-7553uiksiwzhrnScgiapent M McGrawFacility:[facility]art: 75-02-3573KyqfeKemar Lopez MD Work Phone: [address] [place], [place] [address] Acute Work Phone: Start: 01-30-2025 End: 13-23-1656Bupgvawe Result EncounterFabiola Marinelli MD Work Phone: noms External Department UnsolicitedStart: 01-30-2025 End: 85-16-8924Mlskgbvz Result EncounterFabiola Marinelli MD Work Phone: noms External Department UnsolicitedStart: 01-20-2025 End: 29-54-6293LfcsjyQpiuz A Baxter MD Work Phone: noms [facility] FMComment on above:Seasonal allergic rhinitis due to pollenStart: 01-17-2025 End: 91-62-5440kltjlveofmBYLLEZ TRUITTNot AvailableStart: 01-05-2025 End: 15-27-1463Rmmaolktrq hospital visit by physicianSj Ultrasound [address] [place], [place] [address]Comment on above:Liver cell carcinoma (Multi)Start: 01-05-2025 End: 69-02-7899wzpbiofisqHVMT [facility] Hospitaltart: 01-05-2025 End: 37-96-7869azrjokvbnaMAKS [facility] Hospitaltart: 01-05-2025 End: 70-78-0143Zunwqrmebr hospital visit by physicianStj Ultrasound [address] [place], [place] [address]Comment on above:Liver cell carcinoma (Multi)Start: 01-05-2025 End: 44-67-4210bipbjgcorpJQCP [facility] Hospitaltart: 01-03-2025 End: 84-51-3656Pmwwlzfj Result EncounterFabiola Marinelli MD Work Phone: noms External Department UnsolicitedStart: 01-03-2025 End: 60-46-2983Uzsrkapd Result EncounterFabiola Marinelli MD Work Phone: noms External Department UnsolicitedStart: 12-29-2024 End: 59-16-7586Vpcormkc Result EncounterFabiola Marinelli MD Work Phone: noms External Department UnsolicitedStart: 12-29-2024 End: 38-70-6223Lujnvuml Result Lottie Marinelli MD Work Phone: noms External Department UnsolicitedStart: 12-29-2024 Yinka Lopez MD Work Phone: [facility] Acute Work Phone: Start: 12-29-2024 End: 38-77-8787lmhmkirtwuAmmej Baxter MD Work Phone: [facility] Work Phone: Start: 12-29-2024 End: 56-50-4593Sdfjn Baxter MD Work Phone: [phone] [place] [facility] Work Phone: Start: 12-23-2024 End: 70-15-7693ioqugkynafUadzv Baxter MD Work Phone: [phone] Work Phone: Start: 12-23-2024 End: 17-80-6174Aodux Baxter MD Work Phone: [facility] Work Phone: Start: 12-20-2024 End: 93-32-3849Ffxkc Baxter MD Work Phone: [phone]-Emergency Room Work Phone: Start: 12-20-2024 End: 95-05-6567Zudjuxmhu department patient visitYinka Lopez MD Work Phone: [facility] Work Phone: Start: 12-20-2024 End: 87-33-6088Gmwxionoe Lopez MD Work Phone: noAR SEP FMStart: 12-20-2024 End: 19-11-7858Ajisrknoe Lopez MD Work Phone: noms SEP FMStart: 12-20-2024 End: 39-41-8821Eiubqz outpatient visit 40 minutesYinka Lopez MD Work [...] (nonalcoholic steatohepatitis) (CMS/HCC); Pre-op testingStart: 12-20-2024 End: 62-78-6056Gcoiywn encounter statusYinka Lopez MD Work Phone: noms HealthcareStart: 12-20-2024 End: 94-20-1366rgytdkgjjfJHPJT A BAXTERNot AvailableStart: 58-19-2775Pkxqa Baxter MD Work Phone: [facility] Work Phone: Start: 12-07-2024 End: 96-75-3036Sgmwomeh Result EncounterFabiola Marinelli MD Work Phone: noms External Department UnsolicitedStart: 12-07-2024 End: 01-95-2611Xbfkfgxc Result EncounterFabiola Marinelli MD Work Phone: noms External Department UnsolicitedStart: 12-06-2024 End: 97-96-0327PgttkwLme Warchol NP Work Phone: noms POPULATION HEALTHComment on above:Type 2 diabetes mellitus with other specified complication, without long-term current use of insulin (CMS/HCC); Class 1 obesity due to excess calories with serious comorbidity and body mass index (BMI) of 33.0 to 33.9 in adultStart: 12-01-2024 End: 21-50-6722uzydlnbebwWUC WARCHOLNot AvailableStart: 12-01-2024 End: 10-27-5559Dncmmz outpatient visit 25 minutesFabiola Palumbo PARK MANAGER Work Phone: noms [facility] FMComment on above:Upper respiratory tract infection, unspecified [...] COPD type (CMS/HCC) [J44.9] Start: 11-29-2024 End: 74-05-8658Akdqqoippr hospital visit by physicianSrenaldo Ir [facility] TorringtonComment on above:Monoclonal gammopathy; Liver cell carcinoma (Multi)Start: 11-28-2024 End: 10-14-2962Eymqpk outpatient new 30 minutesKapil Mortensen FIBRE TECHNOLOGIST-BINDERY MACHINE SETTER Work Phone: [facility] CenterComment on above: Bleeding internal hemorrhoids (Primary Dx); Anal painStart: 11-28-2024 End: 72-39-9576npgfobyvywKRERE M W[facility]IZ[facility] HEALTHCARECLARACity Hospitaltart: 11-16-2024 End: 93-75-0439Jxpilrfb Result EncounterFabiola Marinelli MD Work Phone: noms External Department UnsolicitedStart: 11-16-2024 End: 19-97-7227Suaclpwg Result EncounterFabiola Marinelli MD Work Phone: noms External Department UnsolicitedStart: 11-16-2024 End: 80-76-3159ClvqbmSue Warchol PARK MANAGER Work Phone: noms POPULATION HEALTHComment on above:Seasonal allergic rhinitis due to pollenStart: 11-16-2024 End: 23-58-7645deqakvsrxpPevgv Baxter MD Work Phone: [facility] Work Phone: Start: 11-16-2024 End: 20-76-9928Pygmw Baxter MD Work Phone: [facility] [place] [facility] Work Phone: Start: 10-27-2024 End: 46-26-8191Ydysaycm Result EncounterFabiola Marinelli MD Work Phone: noms External Department UnsolicitedStart: 10-27-2024 End: 81-88-3084Laaajdce Result EncounterFabiola Marinelli MD Work Phone: noms External Department UnsolicitedStart: 10-24-2024 End: 44-79-8655Ykoah Baxter MD Work Phone: [facility] [place] Work Phone: Start: 10-24-2024 End: 20-12-7770msoemxucxaNrnto BaxterFacility:[facility] Start: 10-21-2024 End: 62-53-2632Dcjee Baxter MD Work Phone: [facility] Work Phone: Start: 10-18-2024 End: 02-73-8379Fpvkzjaq Result EncounterFabiola Marinelli MD Work Phone: noms External Department UnsolicitedStart: 10-18-2024 End: 37-97-0440Aralebkg Result EncounterFabiola Marinelli MD Work Phone: noms External Department UnsolicitedStart: 10-05-2024 End: 22-75-7058Wnxvp Baxter MD Work Phone: [facility] Ambulatory Work Phone: Start: 10-04-2024 End: 56-19-1345Zqqblijr Result EncounterFabiola Marinelli MD Work Phone: noms External Department UnsolicitedStart: 10-04-2024 End: 12-61-9546Ewrmdifb Result EncounterFabiola Marinelli MD Work Phone: noms External Department UnsolicitedStart: 09-27-2024 End: 30-86-0831Hpzhoqcr Result EncounterFabiola Marinelli MD Work Phone: noms External Department UnsolicitedStart: 09-27-2024 End: 08-79-3375Ozslmtpg Result EncounterFabiola Marinelli MD Work Phone: noms External Department UnsolicitedStart: 09-19-2024 End: 39-16-7285Bbxbh Baxter MD Work Phone: [facility]-Ultrasound [facility] [place] Work Phone: Start: 09-19-2024 End: 55-15-2959nhytdqstmhImglx Baxter MD Work Phone: [facility] Work Phone: Start: 09-15-2024 End: 18-80-7995vrscvxefngOcsfp Baxter MD Work Phone: [facility] Work Phone: Start: 09-15-2024 End: 32-70-0145Pmuyh Baxter MD Work Phone: [facility] Ambulatory Work Phone: Start: 09-14-2024 End: 36-84-9561nxfjzyvcadLyzzw Baxter MD Work Phone: [facility] Work Phone: Start: 09-14-2024 End: 66-05-7245Rtjft Baxter MD Work Phone: [facility] Gastroenterology Work Phone: Start: 09-06-2024 End: 14-78-2243zffqenqxguSMSU [facility] Hospitaltart: 09-06-2024 End: 35-39-4153Twnmbk outpatient visit 40 minutesLinda K Gregorio FIBRE TECHNOLOGIST-BINDERY MACHINE SETTER Work Phone: [facility] HospitalComment on above:Multiple myeloma not having achieved remission (Multi) (Primary Dx)Start: 09-06-2024 End: 23-46-9294myhaqzconzLVNWC K [facility] Systemtart: 08-26-2024 End: 26-59-0195pjothmuqzxBT Yinka Lopez Work Phone: [facility] Work Phone: Start: 08-26-2024 End: 78-62-9510UU Yinka Thomaster Work Phone: [facility] Palliative Care Work Phone: Start: 08-25-2024 End: 95-13-7051Pnkyuf outpatient new 60 minutesFredric H Itzkowitz DO Work Phone: noms GENSComment on above:Chronic obstructive pulmonary disease, unspecified COPD type (CMS/HCC) (Primary Dx); Bleeding hemorrhoids; Multiple myeloma not having achieved remission (CMS/HCC); 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) (CMS/HCC); Lymphopenia; Thrombocytopenia (CMS/HCC)Start: 08-25-2024 End: 51-38-6027klsstesubeZBPPUVI H ITZKOWITZNot AvailableStart: 08-23-2024 End: 44-52-2361Ylaigzu encounter statusAmy Deepali PARK MANAGER Work Phone: [facility] Work Phone: Start: 08-23-2024 End: 48-36-4569Hswunqaga encounterAmy Warchol PARK MANAGER Work Phone: [facility] SEP FMStart: 08-23-2024 End: 02-96-2394Srrkxj outpatient visit 25 minutesFabiola Annegordon PARK MANAGER Work Phone: [facility] SEP FMComment on above:Type 2 diabetes mellitus with other specified complication, without long-term current use of insulin (CMS/HCC) (Primary Dx); Gastroesophageal reflux disease without esophagitis; History of exposure to tuberculosis; Chronic cough; Class 1 obesity due to excess calories with serious comorbidity and body mass index (BMI) of 33.0 to 33.9 in adultStart: 08-18-2024 End: 26-59-7103Uzraizmcj Result Garry Lopez MD Work Phone: [facility] External Department UnsolicitedStart: 08-18-2024 End: 60-06-2661Rstcqrves Result Garry Lopez MD Work Phone: [facility] External Department UnsolicitedStart: 08-16-2024 End: 64-75-6907Otcgkx outpatient visit 40 minutesSupa Lindquist MD PhD Work Phone: [facility] HospitalComment on above:Multiple myeloma not having achieved remission (Multi)Start: 08-16-2024 End: 08-04-3284ovsbowdyimRTHRMercy Health St. Joseph Warren Hospitaltart: 08-08-2024 End: 93-15-2430Mzjgqunn Result EncounterLetty Newsome PARK MANAGER Work Phone: n[facility] External Department UnsolicitedStart: 08-08-2024 End: 72-17-4151Aiuxduna Result EncounterLakessica Juan Carlos Lloyduse PARK MANAGER Work Phone: n[facility] External Department UnsolicitedStart: 08-08-2024 End: 98-33-9995hgwkrnxpvkQP Yinka Lopez Work Phone: [facility] Work Phone: Start: 08-08-2024 End: 57-02-8959QM Yinka Lopez Work Phone: [facility]-Lab [place] Work Phone: Start: 07-26-2024 End: 66-42-3101tgglixdbraZLPPMercy Health St. Joseph Warren Hospitaltart: 07-26-2024 End: 14-85-8411Hnoxbz outpatient visit 40 minutesLisette Perkins APRN-BINDERY MACHINE SETTER Work Phone: uh [facility] CenterComment on above:Multiple myeloma, remission status unspecified (Multi) (Primary Dx)Start: 07-26-2024 End: 05-80-3980qhmkszyxtiBYAGK K [facility]tart: 07-20-2024 End: 62-41-0697Wvqxtv outpatient visit 25 minutesLakedanisherlin Newsome PARK MANAGER Work Phone: [facility] SEP FMComment on above:Bleeding hemorrhoids (Primary Dx); Cough in adult; Chronic cough; Chronic obstructive pulmonary disease, unspecified COPD type (CMS/HCC); Essential hypertension (CMS/HCC); Paroxysmal atrial fibrillation (CMS/HCC); HypersomnolenceStart: 07-19-2024 End: 90-40-7422Rlduexwsu encounterFabiola Palumbo PARK MANAGER Work Phone: [facility] SEP FMStart: 07-18-2024 End: 48-18-8099Htzewajdt Result EncounterGeneric External Data ProviderNOMS External Department UnsolicitedStart: 07-18-2024 End: 95-56-3509Xubxhyqkm Result EncounterGeneric External Data ProviderNOMS External Department UnsolicitedStart: 07-18-2024 End: 91-24-6443Hfvbsqu encounter Iva Mendez MD Work Phone: CardiologyComment on above:Nonrheumatic aortic valve stenosis (Primary Dx); Aneurysm of ascending aorta without rupture (HCC)Start: 07-05-2024 End: 08-27-7753Zsrxrz outpatient visit 40 Angi Lindquist MD PhD Work Phone: [facility] HospitalComment on above:Multiple myeloma not having achieved remission (Multi)Start: 07-05-2024 End: 49-79-5114nprnzqirsyJMCC [address] Hospitaltart: 06-29-2024 End: 82-82-2608jeisjvvtenOSNathan Delgado Work Phone: [facility] Work Phone: Start: 06-29-2024 End: 40-71-8850DOMD Ez Delgado Work Phone: [place] [address]-[facility] Work Phone: Start: 06-29-2024 End: 53-58-2770nbeufuzmutXA John A Smith Work Phone: [facility] Work Phone: Start: 06-29-2024 End: 20-59-5614JB Ez Delgado Work Phone: [facility] Work Phone: Start: 18-50-5215EGMD Ez Delgado Work Phone: [facility] Work Phone: Start: 06-28-2024 End: 87-33-4503hscbccimlhKQ John A Smith Work Phone: [facility] Work Phone: Start: 06-28-2024 End: 92-02-7575Tkzzupd encounter procedureMD Ez Delgado Work Phone: [facility] Work Phone: Start: 06-28-2024 End: 37-66-5484GEMD Ez Delgado Work Phone: [facility] Work Phone: Start: 06-27-2024 End: 97-24-6830Aisppwpyw encounterAmy Warchol PARK MANAGER Work Phone: [facility] SEP FMStart: 06-27-2024 End: 31-00-2065oiepyawsibSO John A Smith Work Phone: [facility] Work Phone: Start: 06-27-2024 End: 50-93-2698Rjtunhi encounter procedureMD Ez Delgado Work Phone: [facility] Work Phone: Start: 06-27-2024 End: 84-61-7582LUMD Ez Delgado Work Phone: [facility] Work Phone: Start: 06-20-2024 End: 21-92-4416Aiomyp outpatient visit 25 minutesFabiola Palumbo NP Work Phone: [facility] FMComment on above:Type 2 diabetes mellitus with other specified complication, unspecified whether intermediate card tender insulin use (CMS/HCC) (Primary Dx); BMI 28.0-28.9,adult; Viral upper respiratory tract infection; Hypertension, unspecified type (CMS/HCC)Start: 06-14-2024 End: 48-78-3112ilqtjdphlvJMYLMercy Health St. Joseph Warren Hospitaltart: 05-30-2024 End: 46-68-0697srveqykedoFS Ez Delgado Work Phone: [facility] Work Phone: Start: 05-30-2024 End: 18-48-1505Xaecfel encounter procedure Ez Delgado Work Phone: [facility] Work Phone: Start: 05-30-2024 End: 82-26-3609ZGMD Ez Delgado Work Phone: [facility] Work Phone: Start: 05-24-2024 End: 16-56-7047pawpzwimzkIBZZMercy Health St. Joseph Warren Hospitaltart: 05-10-2024 End: 76-11-1985Jgzkyu outpatient visit 40 minutesSupa Lindquist MD PhD Work Phone: [facility] HospitalComment on above:Multiple myeloma not having achieved remission (Multi); Multiple myeloma, remission status unspecified (Multi)Start: 05-10-2024 End: 46-63-9324zgydchzkueSCCVMercy Health St. Joseph Warren Hospitaltart: 05-10-2024 End: 24-68-9907nwjvgbutbwSBFEMercy Health St. Joseph Warren Hospitaltart: 04-18-2024 End: 99-07-0310Fcu-patient / Non-visitMD Ez Delgado Work Phone: [facility] Work Phone: Start: 04-18-2024 End: 94-64-6217NN Yinka Berto Work Phone: [facility] Work Phone: Start: 04-13-2024 End: 17-23-8607Poe-patient / Non-visitMD Ez Delgado Work Phone: [facility] Work Phone: Start: 04-13-2024 End: 37-70-0200HY Yinka Berto Work Phone: [facility] Work Phone: Start: 04-11-2024 End: 53-08-3965Aid-patient / Non-visitMD Ez Delgado Work Phone: [facility] Work Phone: Start: 04-11-2024 End: 66-61-2324GT Yinka Berto Work Phone: [facility] Work Phone: Start: 05-75-8481Tkxvhidlh Edgar Mendez MD Work Phone: CardiologyComment on above:AppointmentStart: 04-11-2024 End: 03-55-8736Ukp-patient / Non-visitMD Ez Delgado Work Phone: [facility] Work Phone: Start: 04-11-2024 End: 43-89-0563JY Yinka Lopez Work Phone: [facility] Work Phone: Start: 04-11-2024 End: 15-60-0113Oam-patient / Non-visitMD Ez Delgado Work Phone: [facility] Work Phone: Start: 04-11-2024 End: 08-08-5936RI Yinka Lopez Work Phone: [facility] Work Phone: Start: 04-10-2024 End: 39-28-5325Yoqkdaslgg and management of inpatientMD Yinka Lopez Work Phone: [facility] Work Phone: Start: 04-10-2024 End: 43-18-4275NU Yinka Lopez Work Phone: [facility]-3 Wing Med Surg Work Phone: Start: 04-05-2024 End: 81-75-5170gtiqseakyrZBNTCleveland Clinic Euclid Hospitaltart: 03-24-2024 End: 28-55-0714xqyjsnuqeuNX Yinka Lopez Work Phone: [facility] Work Phone: Start: 03-24-2024 End: 50-66-4305Orqgpbm encounter procedureMD Yinka Lopez Work Phone: [facility] Work Phone: Start: 03-24-2024 End: 72-97-0640TB Yinka Lopez Work Phone: [facility] Work Phone: Start: 03-22-2024 End: 32-54-6547hviwpjkadoQWGGCleveland Clinic Euclid Hospitaltart: 03-22-2024 End: 81-79-3364Eamqng outpatient visit 40 minutesKoanamaria Lindquist MD PhD Work Phone: [facility] HospitalComment on above:Multiple myeloma not having achieved remission (Multi)Start: 03-22-2024 End: 67-86-4160lblbfekeifSKUJMercy Health St. Joseph Warren Hospitaltart: 03-21-2024 End: 86-31-9130ktwaydqzdjBJ Yinka Lopez Work Phone: [facility] Work Phone: Start: 03-21-2024 End: 43-25-3061Xbcbxam encounter procedureMD Yinka Lopez Work Phone: [facility] Work Phone: Start: 03-21-2024 End: 21-94-9458MY Yinka Lopez Work Phone: [facility] Work Phone: Start: 03-08-2024 End: 99-12-3078jytdebkwssLJQTMercy Health St. Joseph Warren Hospitaltart: 49-73-4848Qxb-patient / Non-visitMD Yinka Lopez Work Phone: [facility] Work Phone: Start: 22-26-4443ZB Yinka Lopez Work Phone: [facility] Work Phone: Start: 56-27-1575Gerptljigq RecurringMD Yinka Lopez Work Phone: [facility] Work Phone: Start: 26-36-3982OC Yinka Lopez Work Phone: [facility] Work Phone: Start: 02-23-2024 End: 43-85-4192ywxvuvqsmlYQSJMercy Health St. Joseph Warren Hospitaltart: 02-23-2024 End: 26-36-7387Pptvdz outpatient visit 40 Angi Lindquist MD PhD Work Phone: [facility] HospitalComment on above:Multiple myeloma not having achieved remission (Multi)Start: 02-23-2024 End: 71-30-0421burgzjmbdcWULQCleveland Clinic Euclid Hospitaltart: 02-16-2024 End: 86-45-9792ufjhotoxunTSVYMercy Health St. Joseph Warren Hospitaltart: 02-11-2024 End: 78-80-4809jzkzicpkldEC Yinka Lopez Work Phone: [facility] Work Phone: Start: 02-11-2024 End: 02-25-2491Debgoal encounter procedureMD Yinka Lopez Work Phone: [facility]-Ultrasound [place] Work Phone: Start: 02-11-2024 End: 86-93-4700DT Yinka Lopez Work Phone: [facility]-Ultrasound [facility] [place] Work Phone: Start: 02-09-2024 End: 42-43-9469Jnkwytmpjm hospital visit by physician[address] MatherComment on above:Multiple myeloma not having achieved remission (CMS/HCC)Start: 02-09-2024 End: 42-88-2674Zadyoh outpatient visit 40 minutesLisette Perkins APRN-BINDERY MACHINE SETTER Work Phone: [facility] HospitalComment on above:Multiple myeloma not having achieved remission (Multi) (Primary Dx); Liver cirrhosis secondary to KAPADIA (nonalcoholic steatohepatitis) (Multi); Secondary hypertension; Hyperlipidemia, unspecified hyperlipidemia type; Type 2 diabetes mellitus without complication, without long-term current use of insulin (Multi); Immunodeficiency disorder (Multi); Fibromyalgia; Drug-induced polyneuropathy (Multi)Start: 02-09-2024 End: 98-29-4193gvzsqopmlyFGDSMercy Health St. Joseph Warren Hospitaltart: 02-09-2024 End: 43-53-4476agdypxrxnlMUQCO K YUMIKOCity Hospitaltart: 01-26-2024 End: 81-74-5896vsquunrpecQPNEI K [facility] Systemtart: 95-98-9355Uoziojtlyp RecurringMD Yinka Lopez Work Phone: [facility] [place] [facility] Work Phone: Start: 83-34-7525Wzaommrykp RecurringMD Yinka Lopez Work Phone: [facility] [place] [facility] Work Phone: Start: 01-21-2024 End: 81-51-9520hjbbrhrhisSP Yinka Lopez Work Phone: [facility] Work Phone: Start: 01-21-2024 End: 84-08-8798Bejzlvc encounter procedureMD Yinka Lopez Work Phone: [facility] Work Phone: Start: 01-21-2024 End: 77-48-8214GX Yinka Lopez Work Phone: [facility] Work Phone: Start: 01-21-2024 End: 82-19-5178ciquyzmvtkLD Yinka Lopez Work Phone: [facility] Work Phone: Start: 01-21-2024 End: 03-61-2196Cgtuans encounter procedureMD Yinka Lopez Work Phone: [facility] Work Phone: Start: 01-21-2024 End: 68-83-3403DH Yinka Lopez Work Phone: [facility] Work Phone: Start: 79-47-5882Vhexjhzidh RecurringMD Yinka Lopez Work Phone: [facility] [place] [facility] Work Phone: Start: 01-19-2024 End: 82-52-8805trcmcugfruNMWRCleveland Clinic Euclid Hospitaltart: 01-12-2024 End: 21-41-6508Kbcdvv outpatient visit 40 minutesLisette Perkins FIBRE TECHNOLOGIST-BINDERY MACHINE SETTER Work Phone: [facility] HospitalComment on above:Liver cirrhosis secondary to KAPADIA (nonalcoholic steatohepatitis) (CMS/HCC) (Primary Dx); Immunodeficiency disorder (CMS/HCC); Drug-induced polyneuropathy (CMS/HCC); Depression, unspecified depression typeStart: 01-12-2024 End: 72-44-4501wofkpkgnpdFPPWHUniversity Hospitals Geneva Medical Centertart: 12-31-2023 End: 19-88-5923Hqjftaz encounter procedureMD Yinkashefali Thomaster Work Phone: [facility] Work Phone: Start: 12-29-2023 End: 14-75-9094Mizlzb outpatient visit 40 Adamaris Perkins FIBRE TECHNOLOGIST-BINDERY MACHINE SETTER Work Phone: [facility] HospitalComment on above:Liver cirrhosis secondary to KAPADIA (nonalcoholic steatohepatitis) (CMS/HCC) (Primary Dx); Multiple myeloma not having achieved remission (CMS/HCC); Immunodeficiency disorder (CMS/HCC)Start: 12-29-2023 End: 30-13-5945swidoyvvumCNDWCleveland Clinic Euclid Hospitaltart: 12-17-2023 End: 57-98-6467Jahacgmly department patient visitMD Del Cidshefali Thomaster Work Phone: [facility]-Emergency Room Work Phone: Start: 12-15-2023 End: 17-04-0990zwjsbsegmvAFXHCleveland Clinic Euclid Hospitaltart: 12-08-2023 End: 15-07-4975cwxrrfhwewKYSZCleveland Clinic Euclid Hospitaltart: 12-07-2023 End: 22-10-6774cckuiuxqngInlhbhsoo McGraw Other [employer] Other Start: 53-10-4162Ofkljivke encounterKatie MAYNARD Palliative CareStart: 11-27-2023 End: 34-74-8717Dqlbww outpatient visit 40 CognotionNiubenda Work Phone: uh Health[facility] SaginawComment on above: Immunodeficiency disorder (CMS/HCC) (Primary Dx); Multiple myeloma not having achieved remission (CMS/HCC); Liver cirrhosis secondary to KAPADIA (nonalcoholic steatohepatitis) (CMS/HCC); Thrombocytopenia (CMS/HCC)Start: 11-18-2023 End: 98-32-8423Kmscarlvbp and management of inpatientKoanamaria Lindquist MD PhD Work Phone: [facility] 3Comment on above:Multiple myeloma not having achieved remission (CMS/HCC) (Primary Dx); Multiple myeloma, remission status unspecified (CMS/HCC); Depression, unspecified depression typeStart: 11-17-2023 End: 60-80-4594Qvohyl outpatient visit 40 Paradine Work Phone: [facility] HospitalComment on above:Multiple myeloma not having achieved remission (CMS/HCC) (Primary Dx); Immunosuppressed status (CMS/HCC)Start: 80-99-6579Ajrgvdasg encounterKatie Soliman Palliative CareStart: 11-04-2023 End: 06-36-4454okkdulgjubIG Brian Baxter Work Phone: [facility] [employer] Other Start: 11-04-2023 End: 86-41-1570Bxfwyaw encounter procedureMD Yinka Lopez Work Phone: [facility] [place] Work Phone: Start: 22-16-9340Raafljkful RecurringMD Yinka Lopez Work Phone: [facility] Work Phone: start: 10-22-2023 End: 53-50-7567Azmobrb encounter procedureMD Yinka Lopez Work Phone: [facility] Work Phone: Start: 10-21-2023 End: 87-31-4578ydoeiubzysZT Brian Baxter Work Phone: [facility] Work Phone: Start: 10-21-2023 End: 28-42-9387WC Yinka Lopez Work Phone: [facility] Work Phone: Start: 10-07-2023 End: 56-09-5618knxsbkpmgjAixahiuzz Gallo Other [employer] Other Start: 33-44-0967Ugjjcnlay encounterKatherine Gallo [facility] Palliative CareStart: 10-06-2023 End: 02-14-9419Cfswyo outpatient visit 40 Angi Lindquist MD PhD Work Phone: [facility] HospitalComment on above:Multiple myeloma not having achieved remission (CMS/HCC)Start: 09-23-2023 End: 60-45-8491lxffuibkvqIfcuoyuqs Gallo Other [employer] Other Start: 83-97-0646Rfpbhamfu encounterKatherine Gallo [facility] Palliative CareStart: 09-21-2023 End: 13-60-4295owcazuygjbDhioboqcx Gallo Other [employer] Other Start: 56-68-9975Bmykianqn encounterKatherine Gallo [facility] Palliative CareStart: 09-12-2023 End: 10-44-6840Fcnwshfxv department patient visitMD Yinka Lopez Work Phone: [facility]-Emergency Room Work Phone: Start: 09-12-2023 End: 75-46-1182XR Yinka Lopez Work Phone: [facility]-Emergency Room Work Phone: Start: 09-08-2023 End: 28-09-1834Vmovap outpatient visit 40 minutesCamila Ctaracho Perkins APRN-BINDERY MACHINE SETTER Work Phone: [facility] HospitalComment on above:Multiple myeloma not having achieved remission (CMS/HCC); Multiple myeloma, remission status unspecified (CMS/HCC)Start: 08-17-2023 End: 21-81-8643Puvkwz outpatient visit 40 minutesOw[facility] Medical CenterComment on above:Multiple myeloma not having achieved remission (CMS/HCC) (Primary Dx); Pancytopenia (CMS/HCC); Immunosuppressed status (CMS/HCC); Multiple myeloma, remission status unspecified (CMS/HCC)Start: 08-14-2023 End: 07-96-1004Dsgahz outpatient visit 40 minutesPhelps HealthComment on above: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) (Primary Dx); Immunosuppressed status (CMS/HCC); Pancytopenia (CMS/HCC)Start: 08-03-2023 End: 73-13-7717Cxjqlzwjlo and management of inpatientAli W August JASSO Work Phone: [facility] 3Start: 39-26-7522nevrnvspgmtheresa LindquistFacility:CStart: 07-22-2023 End: 52-30-7386Wrvrjxjze department patient visitMD Yinka Lopez Work Phone: [facility]-Emergency Room Work Phone: Start: 24-68-4148Drommpwyro RecurringMD Yinka Lopez Work Phone: [facility] Work Phone: Start: 07-16-2023 End: 56-15-7234lmlebhtfpsJlnktcuii Gallo Other [employer] Other Start: 00-78-3068Owclyj outpatient visit 25 minutes Katie VielkaG Palliative CareStart: 07-08-2023 End: 31-26-0139lrmbxyvdnsDP Yinka Lopez Work Phone: [facility] Work Phone: Start: 07-08-2023 End: 85-01-9490SY Yinka Lopez Work Phone: [facility] Work Phone: Start: 07-01-2023 End: 21-23-8479ogvizmfipeAlxzhjwhp Gallo Other [facility] [employer] Other Start: 81-26-8526Zkaqnhqip encounterKatherine Gallo [facility] Palliative CareStart: 58-86-3793poisktbupkJp. Yinka LopezFacility:[facility] Start: 90-57-6667zwkvvogmntQrErna LopezFacility:[facility]ENTERtart: 06-10-2023 End: 24-73-3372gjadjyxjhzTP Yinka Lopez Work Phone: [facility] Work Phone: Start: 06-10-2023 End: 73-42-1156EH Yinka Lopez Work Phone: [facility] Work Phone: Start: 06-03-2023 End: 71-67-0534asmomlncjxVadpnnabv Gallo Other [employer] Other Start: 05-00-5728Chcbyltux encounterKatherine Gallo [facility] Palliative CareStart: 21-91-4603xsoiviukrpIu. Yinka LopezFacility:[facility] Start: 04-30-2023 End: 32-10-0335xjuchydqpdBpzylyrdt Gallo Other [employer] Other Start: 31-77-8520Connbrkog encounterKatherine Gallo [facility] Palliative CareStart: 04-16-2023 End: 89-34-1098pwmeaitzquVmuxpslie Gallo Other [employer] Other Start: 13-07-0847Jfpaki outpatient visit 15 minutes Katie DanterawFPG Palliative CareStart: 04-02-2023 End: 61-87-6873edqqvwbjrlYemktwezb Gallo Other [employer] Other Start: 32-29-0736Yhpxkvqhh encounterKatherine Gallo [facility] Palliative CareStart: 03-11-2023 End: 03-31-3054unfxwendvzCV Yinka Thomaster Work Phone: [facility] Work Phone: Start: 03-11-2023 End: 68-96-5538WE Yinka Thomaster Work Phone: [facility] Work Phone: Start: 03-06-2023 End: 08-91-5456lbmzgmjhxpMsekyxwbe Gallo Other [employer] Other Start: 75-54-0987Toligaobu encounterKatherine Gallo [facility] Palliative CareStart: 02-25-2023 End: 08-74-9216vlsqtwaldkPppqphzav Gallo Other [employer] Other Start: 64-03-6361Zpvxvm outpatient new 45 minutes Katie McGrawFPG Palliative CareStart: 02-24-2023 End: 63-03-4644Yalacmfli to same day surgery centerMD Yinka Lopez Work Phone: [facility]-CT Scan [place] Work Phone: Start: 02-24-2023 End: 19-39-0119dfrvokuhksTO Yinka Lopez Work Phone: [facility] Work Phone: Start: 02-24-2023 End: 34-19-3543AK Yinka Lopez Work Phone: [phone] [place] Work Phone: Start: 41-56-7208Gfuxpxuxgu RecurringMD Yinka Lopez Work Phone: [facility] Work Phone: Start: 01-28-2023 End: 94-55-1546Hnurpdzltc and management of inpatientMD Yinka Lopez Work Phone: [facility]-3 Wing Med Surg Work Phone: Start: 14-41-6518jfpoazvoqge encounterMD Yinka Lopez Work Phone: [facility] Work Phone: Start: 01-28-2023 End: 35-35-1653SZ Yinka Lopez Work Phone: [phone] Work Phone: Start: 69-26-1974Axrcnkmhcu RecurringMD Yinka Lopez Work Phone: [facility] Work Phone: Start: 01-09-2023 End: 44-57-2151vbugnaqvchDX Yinka Lopez Work Phone: [facility] Work Phone: Start: 01-09-2023 End: 94-18-2108KD Yinka Lopez Work Phone: [facility] Work Phone: Start: 83-48-7166pughbuvglqNj. Brian Alan Baxter Facility:[facility]tart: 12-29-2022 End: 79-10-6491wfdntklfcaMM Yinkashefali Lopez Work Phone: [phone] Work Phone: Start: 12-29-2022 End: 95-86-4151Raqyohe encounter procedureMD Yinka Lopez Work Phone: [phone] Work Phone: Start: 12-29-2022 End: 74-93-4138JM Yinka Lopez Work Phone: [phone] Work Phone: Start: 12-26-2022 End: 73-90-8895oaslydzrgcIK Yinka Thomaster Work Phone: [facility] Work Phone: Start: 12-26-2022 End: 32-54-2642AZ Yinka Lopez Work Phone: [phone] Work Phone: Start: 27-52-6791Zfsvevbalu Recurring Yinka Lopez Work Phone: [phone] Work Phone: Start: 11-26-2022 End: 40-92-9641akvacrmsigDX Yinka Thomaster Work Phone: [phone] Work Phone: Start: 11-26-2022 End: 88-52-2217PC Yinka Thomaster Work Phone: [phone] Work Phone: Start: 31-19-4360eofdobxtihRp. Brian Alan Baxter Facility:[id number]: 11-06-2022 End: 60-02-1438cowmjapjwoES Yinka Lopez Work Phone: [facility] Work Phone: Start: 11-06-2022 End: 88-30-4019Ijkmeeg encounter procedureMD Yinka Lopez Work Phone: [facility] Work Phone: Start: 11-06-2022 End: 59-51-1505IV Yinka Lopez Work Phone: [facility] Work Phone: Start: 31-96-4041Iclgxlzvkn RecurringMD Yinka Lopez Work Phone: [facility] Work Phone: Start: 10-22-2022 End: 33-64-6059mnufbkosieTR DOCTOR MISCFacility:P3Hcnzl: 10-16-2022 End: 41-43-4161rfracdfdyrSLUXBC KIEPERTFacility:F6Zglxk: 10-15-2022 End: 79-12-0037drqjvgjhjrMS Yinka Lopez Work Phone: [facility] Work Phone: Start: 10-15-2022 End: 81-08-7342NI Yinka Lopez Work Phone: [facility] CenterStart: 10-13-2022 End: 43-97-1179Xcbqmfj encounter procedureJuan J Mendez MD Work Phone: CardiologyComment on above:Obesity, Class III, BMI >= 40 (Primary Dx); Multiple myeloma, remission status unspecified (HCC); Mild dilation of ascending aorta (HCC)Start: 97-54-5867Poepqlpop encounterJuan J Mendez MD Work Phone: CardiologyComment on above:Received Outside Medical RecordsStart: 09-24-2022 End: 87-31-5371krytrdgnbqSC Yinka Lopez Work Phone: [facility] Work Phone: Start: 09-24-2022 End: 16-86-7391FA Yinka Lopez Work Phone: [facility] Center[facility]: 09-19-2022 End: 73-27-7784klbnkpndkePM Yinka Lopez Work Phone: [facility] Work Phone: Start: 09-19-2022 End: 42-05-4085UW Yinka Lopez Work Phone: [phone] CenterStart: 08-20-2022 End: 75-65-1999teghsbkgwjWB Yinka Lopez Work Phone: [facility] Work Phone: Start: 08-20-2022 End: 88-55-6432DP Yinka Lopez Work Phone: [facility] CenterStart: 08-12-2022 End: 90-66-2489andycdreciGQ Yinka Lopez Work Phone: [facility] Work Phone: Start: 08-12-2022 End: 23-30-1404Vgpppnf encounter procedureMD Yinka Lopez Work Phone: [phone]: 08-12-2022 End: 71-02-7609ED Yinka Lopez Work Phone: [facility] CampusStart: 60-36-3007Oaypumrvfm RecurringMD Yinka Lopez Work Phone: [phone] CenterStart: 07-11-2022 End: 42-51-8000CP Yinka Lopez Work Phone: [phone] CenterStart: 07-10-2022 End: 60-81-8071Jfnocszvju RecurringMD Yinka Lopez Work Phone: [facility] Procedures DateProcedureProcedure DetailPerforming ClinicianStart: 51-22-0531Lpfftzptm streptococcus group aDaniel Nuvia DO Work Phone: Start: 99-78-6369Jaucn of magnesiumFabiola Marinelli MD Work Phone: Start: 68-46-5655Xjghidupnzbul metabolic panelFabiola Marinelli MD Work Phone: Start: 97-38-4646FeglyaoquxzjlTra Ching Marinelli MD Work Phone: Start: 31-66-4385Esqswm measurementYinka Lopez MD Work Phone: Start: 12-56-5267OYACIHWWOKNBYKE A/E/G/M, QN ([facility])Fabiola Marinelli MD Work Phone: Start: 40-76-1864Crhggcknorila metabolic panelFabiola Marinelli MD Work Phone: Start: 30-54-6739Reabmagtizjty metabolic panelFabiola Marinelli MD Work Phone: Start: 00-61-4703Pdpqa immunofixationYinka Lopez MD Work Phone: Start: 92-71-3370Adheatricaqgh metabolic panelFabiola Marinelli MD Work Phone: Start: 22-03-5784Sfhzvhf quantitative blood xcpt reagent stripInterface Unspecifiedprovider Work Phone: Start: 06-22-2025 End: 65-17-2320Obqid 1/> lvr la prq rfAlex Ching Fco FIBRE TECHNOLOGIST-BINDERY MACHINE SETTER Work Phone: Start: 67-73-8120MFHQT OXIMETRY, Clarissa Rodriguez MD Work Phone: Start: 06-22-2025 End: 62-49-4108Qaylt metabolic panel calcium totalMorro Calderon MD Work Phone: Start: 67-51-5394Nsswenhv screenKatashlyn Gallo Comment on above:Order Comment: Transfuse now? Y Number of units to transfuse now? 1Result Comment: PERFORMED BY:[facility] [id number] [place], [place] [id number] MEDICAL DIRECTORARIEL BRUCE M.D.Start: 58-78-5403Llneanultbans metabolic panelFabiola Marinelli MD Work Phone: Start: 92-99-9956KAIUGGROUWTKGOF A/E/G/M, QN ([facility])Fabiola Marinelli MD Work Phone: Start: 77-07-9004Hvmdfimzcewpf metabolic panelFabiola Marinelli MD Work Phone: Start: 65-29-8054WFRS AND CBCFabiola Marinelli MD Work Phone: Start: 76-57-1318Seqxk immunofixationYinka Lopez MD Work Phone: Start: 45-93-5640Tzrif cultureYinka Lopez MD Work Phone: Start: 77-19-4506Swpaq chest X-rayYinka Lopez MD Work Phone: Start: 61-96-0611Apgevlwjhvyxj metabolic panelFabiola Marinelli MD Work Phone: Start: 86-68-9262LQM of abdomen with contrastYinka Lopez MD Work Phone: Start: 94-99-1633Glkmfoxmdu bloodFabiola Marinelli MD Work Phone: Start: 77-01-3693PWWEXESHOGGUVRM A/G/M, QN, Julianna Marinelli MD Work Phone: Start: 65-77-7089RFBS COVID ANTIGENDaniel Nuvia DO Work Phone: Start: 41-17-5884Spyen dip stick/tablet rgnt non-auto w/o micrscpDaniel Nuvia DO Work Phone: Start: 59-81-3893Eoepvfohwddpi metabolic panelFabiola Marinelli MD Work Phone: Start: 17-73-6531ISSMBWYUHPO SLIDE REVIEW ([facility])Fabiola Marinelli MD Work Phone: Start: 24-77-6293KCTYYQKSAJHXLML A/G/M, QN, Julianna Marinelli MD Work Phone: Start: 29-45-7435TDIBQRT TRACT INFECTION (HTRX)Joaquina Greer PARK MANAGER Work Phone: Start: 84-65-9935Yhhff dip stick/tablet rgnt auto w/o microscopyJoaquina Greer PARK MANAGER Work Phone: Start: 99-14-7575Pwjqsitrxnyce metabolic panelFabiola Marinelli MD Work Phone: Start: 20-53-4089Toioulsgumfaz metabolic panelFabiola Marinelli MD Work Phone: Start: 01-05-2025 End: 90-85-1749MJHKO OXIMETRY, Clarissa Rodriguez MD Work Phone: Start: 01-05-2025 End: 12-90-7667Xfzadoenniymo metabolic panelMorro Calderon MD Work Phone: Start: 41-10-8668Iazytvemot bloodFabiola Marinelli MD Work Phone: Start: 63-07-4442LVDN K+L LT CHAINS, QWilliam, Jeffery Marinelli MD Work Phone: Start: 53-52-5779KBMUNJYSYGJFEUF A/G/M, QN, Julianna Marinelli MD Work Phone: Start: 17-43-9704Etenpzbvlwy timeBrian A Lopez MD Work Phone: Start: 91-09-7224Fqi routine ecg w/least 12 lds w/i&r Yinka Lopez MD Work Phone: Start: 42-73-4615Kajifryijc glycosylated g9iJedpcYinka Lopez MD Work Phone: Start: 38-96-1684Ckwxabpbvpmzc metabolic panelFabiola Marinelli MD Work Phone: Start: 05-87-3638Obgbmwmy dx w/collj spec br/wa spx when prfrmdDonya Ching Robledovandana FIBRE TECHNOLOGIST-BINDERY MACHINE SETTER Work Phone: Start: 55-53-4846Mtdhxiwyyyxdg metabolic panelFabiola Marinelli MD Work Phone: Start: 39-73-9908ULCCSLRFHUATBKH A/G/M, QN, SERAradha Marinelli MD Work Phone: Start: 55-89-0851Uykwblwnctlgg metabolic panelFabiola Marinelli MD Work Phone: Start: 33-84-3491JIO of abdomen with contrastYinka Lopez MD Work Phone: Start: 11-90-6793Dvnajmtwrubmc metabolic panelFabiola Marinelli MD Work Phone: Start: 32-04-2368Kxkzkodqcpitt metabolic panelFabiola Marinelli MD Work Phone: Start: 10-92-1897WIQF AND CBCFabiola Marinelli MD Work Phone: Start: 40-29-0281Ttpuvmat emission tomography of whole body using fluorocholine (18-F)Yinka Lopez MD Work Phone: Start: 31-12-0059Lsfykfpoeowpent of liverYinka Lopez MD Work Phone: Start: 37-34-8355Wrmrs 1996 panel - Serum or Plasma Lisette Perkins FIBRE TECHNOLOGIST-BINDERY MACHINE SETTER Work Phone: start: 47-05-7548JR TOMOSYNTHESIS SCREENING Yanci Lopez MD Work Phone: Start: 17-60-5994YfamliqsfpyXlc Warchol PARK MANAGER Work Phone: Start: 46-14-7199Hrpnwsqnwvb pathogens DNA and RNA panel - Nasopharynx by JOHANN with non-probe detectionYinka Lopez MD Work Phone: Start: 75-73-3888ND Yinka Lopez Work Phone: Start: 30-79-0129IFTTA-19 PCR ([facility])Letty Newsome PARK MANAGER Work Phone: Start: 29-51-3105Ppn routine ecg w/least 12 lds i&r onlyCcf ProviderStart: 57-79-8584EIT50Usaqpjb External Data ProviderStart: 22-31-8855Qyony chest X-rayMD Ez Delgado Work Phone: Start: 00-58-4087Bgcvgoqwmz glycosylated a1cFabiola Palumbo PARK MANAGER Work Phone: Start: 23-60-0397Dsosvq scan of lower limb veinsMD Yinka Lopez Work Phone: Start: 34-02-6486Njmdd culture for bacteria, including anaerobic screenMD Yinka Lopez Work Phone: Start: 06-27-0136Lncqotpyvkaen of transfusion reaction MD Yinka Lopez Work Phone: Start: 00-38-0709Wswlcbqdpfj Panel (PCR)MD Ez Delgado Work Phone: Start: 22-19-2269MY Yinka Lopez Work Phone: Start: 96-99-6046RV of head without contrastMD Yinka Lopez Work Phone: Start: 52-65-1180OD of abdomen and pelvis without contrastMD Yinka Lopez Work Phone: Start: 59-78-8100Nvrkd chest X-rayMD Yinka Lopez Work Phone: Start: 56-94-5252Remfiucxs ID (NA Multiplex Assay)MD Ez Delgado Work Phone: Start: 60-11-2126YOMD Yinka Lopez Work Phone: Start: 47-71-9574TAU NURSING COMMUNICATION - CYTOKINE RELEASE SYNDROMEKOEN VAN BESIENStart: 24-35-0864IMLIGORUI CONDITIONSKOEN VAN BESIENStart: 38-52-6217HFM NURSING COMMUNICATION - IVIGKOEN VAN BESIENStart: 32-57-4018ANFGDI CALCULATED LENGTH INFUSION APPOINTMENT REQUEST 1KOEN VAN IEN Start: 23-07-0179RHU NURSING COMMUNICATION - CYTOKINE RELEASE SYNDROMEKOEN VAN IENStart: 65-48-2910HAE NURSING COMMUNICATION - HYPERSENSITIVITY MANAGEMENT, MODERATEKOEN VAN IENStart: 67-89-6718CGPEIUJBK CONDITIONSKOEN VAN BESIEN Start: 89-06-4966PPQ NURSING COMMUNICATION - VASCULAR ACCESSKOEN VAN BESIEN Start: 03-17-2790DTE W Auto Differential panel - BloodKOEN VAN IENStart: 37-09-0424Wglkkssnbsrfj metabolic 2000 panel - Serum or PlasmaKOEN VAN IEN Start: 44-79-5982Rfluhzayyu Soham (Bld) [Interp]KOEN VAN BESIENStart: 02-23-2024 ONCBCN CALCULATED LENGTH INFUSION APPOINTMENT REQUEST 1KOEN VAN BESIENStart: 81-73-8268YCFYAT CLINIC APPOINTMENT REQUESTKOEN VAN BESIENStart: 35-67-2067UGC NURSING COMMUNICATION - VASCULAR ACCESSKOEN VAN BESIENStart: 67-65-1963EFP NURSING COMMUNICATION - CYTOKINE RELEASE SYNDROMEKOEN VAN BESIENStart: 24-46-0072XRF NURSING COMMUNICATION - HYPERSENSITIVITY MANAGEMENT, MODERATEKOEN VAN BESIENStart: 20-91-6081WBCMRNULT CONDITIONSKOEN VAN IENStart: 02-16-2024 CBC W Auto Differential panel - BloodKOEN VAN IENStart: 02-16-2024 Comprehensive metabolic 2000 panel - Serum or PlasmaKOEN VAN BESIENStart: 26-57-6782ELGFUQLGNZODRMH (IGG, IGA, IGM)KOEN VAN BESIENStart: 04-16-2024 KAPPA/LAMBDA FREE LIGHT CHAIN, SERUMKOEN VAN BESIENStart: 53-50-7412Qxwdspjrfo Soham (Bld) [Interp]KOEN VAN BESIENStart: 40-87-4229GVYMZZC ELECTROPHORESIS, SERUM KOEN VAN BESIENStart: 46-87-2431KDZXXIB, TOTAL SPEKOEN VAN BESIENStart: 47-04-9613GRVSVJ CALCULATED LENGTH INFUSION APPOINTMENT REQUEST 1KOEWilliam LINDQUIST Start: 61-91-3362Ulnuna scan of lower limb veinsMD Yinka Lopez Work Phone: Start: 84-95-8431TMUN US LOWER EXTREMITY VENOUS DUPLEX RIGHTKOEN VAN BESIENStart: 31-43-1244RJU NURSING COMMUNICATION - CYTOKINE RELEASE SYNDROMEKOEN VAN BESIENStart: 32-74-1184YED NURSING COMMUNICATION - HYPERSENSITIVITY MANAGEMENT, MODERATEKOEN VAN VEENAIENStart: 65-00-0599QRCAS OXIMETRY, CONTINUOUSKOEN VAN VEENAIENStart: 16-40-1527NRVRBOSXL CONDITIONSKOEN VAN BESIENStart: 98-46-8449SNZ NURSING COMMUNICATION - IVIGKOEN VAN BESIENStart: 70-24-8007HHR W Auto Differential panel - BloodKOEN VAN BESIENStart: 02-09-2024 ONC NURSING COMMUNICATION - VASCULAR ACCESSKOEN VAN BESIENStart: 02-09-2024 ONCBCN INFUSION APPOINTMENT REQUESTKOEN AZAR CURIELIENStart: 04-89-5771PMNBDW CALCULATED LENGTH INFUSION APPOINTMENT REQUEST 1KOEN AZAR CURIELIENStart: 01-26-2024 ONCBCN CLINIC APPOINTMENT REQUESTKOEN VAN BESIENStart: 78-83-9019LN of paranasal sinus without contrastMD Yinka Lopez Work Phone: Start: 04-95-9165PT of thorax with contrastMD Yinka Lopez Work Phone: Start: 49-72-5579Mbkdbok microbial cultureYinka Lopez MD Work Phone: Start: 03-62-9469Uvnq stain microscopyYinka Lopez MD Work Phone: Start: 10-81-9673Fofzamqtxrbee of transfusion reaction MD Yinka Lopez Work Phone: Start: 75-01-1878Ccade chest X-rayDC Yinka Lopez Work Phone: Start: 39-39-0426LKY NURSING COMMUNICATION - CYTOKINE RELEASE SYNDROMEKOEN VAN BESIENStart: 81-27-9279ZLN NURSING COMMUNICATION - HYPERSENSITIVITY MANAGEMENT, MODERATEKOEN VAN BESIENStart: 37-04-4999KXBFOTRLA CONDITIONSKOEN VAN BESIENStart: 76-61-3921DOFRKX CALCULATED LENGTH INFUSION APPOINTMENT REQUEST 1KOEN VAN BESIENStart: 35-70-2967QHD NURSING COMMUNICATION - VASCULAR ACCESSKOEN VAN BESIENStart: 42-44-3888UIH NURSING COMMUNICATION - CYTOKINE RELEASE SYNDROMEKOEN VAN BESIENStart: 76-43-8934CJT NURSING COMMUNICATION - HYPERSENSITIVITY MANAGEMENT, MODERATEKOEN VAN BESIENStart: 14-89-6789THIJIJIUE CONDITIONSKOEN VAN BESIENStart: 51-51-6609YTZ NURSING COMMUNICATION - IVIGKOEN VAN BESIENStart: 41-15-5377YSH W Auto Differential panel - BloodKOEN VAN BESIENStart: 23-24-2831EDHDWH INFUSION APPOINTMENT REQUEST KOEN VAN BESIENStart: 54-52-1775BHASAA CALCULATED LENGTH INFUSION APPOINTMENT REQUEST 1KOEN VAN BESIENStart: 89-24-5801Wehim chest X-rayDC Yinka Lopez Work Phone: Start: 75-89-4641HTC W Auto Differential panel - Blood KOEN VAN BESIENStart: 08-12-3988Yiyzmvrnhknqe metabolic 2000 panel - Serum or PlasmaKOEN VAN BESIENStart: 44-62-4407MFGZIYKHBFLOIBV (IGG, IGA, IGM)KOEN VAN BESIENStart: 05-88-0229BGPWE/LAMBDA FREE LIGHT CHAIN, SERUMKOEN VAN BESIENStart: 78-81-4426QOVIECL ELECTROPHORESIS, SERUMKOEN VAN BESIENStart: 12-29-2023 PROTEIN, TOTAL SPEKOEN VAN BESIENStart: 76-16-3396JTN NURSING COMMUNICATION - VASCULAR ACCESSKOEN VAN BESIENStart: 94-40-0093PDVRBD CALCULATED LENGTH INFUSION APPOINTMENT REQUEST 1KOEN VAN BESIENStart: 25-64-3138ZDZSQS CLINIC APPOINTMENT REQUESTKOEN VAN BESIENStart: 32-67-6454CO angiography of thoraxMD Yinka Loepz Work Phone: Start: 90-91-4530Vnmfk culture for bacteria, including anaerobic screenMD Yinka Lopez Work Phone: Start: 45-27-9700QDHN-CoV-2, Influenza & RSV (PCR) Yinka Lopez Work Phone: Start: 58-08-0125Vhsqc chest X-rayMD Yinka Lopez Work Phone: Start: 39-77-3696DHP NURSING COMMUNICATION - CYTOKINE RELEASE SYNDROMEKOEN VAN BESIENStart: 67-55-1990LKZBSDEED CONDITIONSKOEN VAN BESIENStart: 32-83-4595Htwwqnqcynwja metabolic 1999 panel - Serum or PlasmaKOEN VAN BESIENStart: 06-49-8971HTBWSI CALCULATED LENGTH INFUSION APPOINTMENT REQUEST 1KOEN VAN BESIENStart: 99-90-4115LPP NURSING COMMUNICATION - CYTOKINE RELEASE SYNDROMEKOEN VAN BESIENStart: 61-44-6155QVU NURSING COMMUNICATION - HYPERSENSITIVITY MANAGEMENT, MODERATEKOEN VAN BESIENStart: 98-97-1803JPDMZUOEB CONDITIONSKOEN VAN BESIENStart: 02-31-6570FMF NURSING COMMUNICATION - IVIGKOEN VAN BESIENStart: 14-25-2397WLK NURSING COMMUNICATION - VASCULAR ACCESSKOEN VAN BESIENStart: 01-94-3057Evvpohbtiuyhi metabolic 1999 panel - Serum or PlasmaKOEN VAN BESIENStart: 31-19-3535Pvktfmlmoz Soham (Bld) [Interp]KOEN VAN BESIENStart: 75-21-4211UNJ W Auto Differential panel - BloodKOEN VAN BESIENStart: 11-25-2023 Glucose quantitative blood xcpt reagent stripMomargaret Romano MD PhD Work Phone: start: 30-85-3285K-reactive proteinRachel Ching Poyle PA-C Work Phone: start: 11-45-2653Kzwhs function panelRajasmin Flower Poyle PA-C Work Phone: start: 18-58-5595Ezkpndu quantitative blood xcpt reagent stripTheresa Romano MD PhD Work Phone: Start: 69-94-8368Ijrjfeu quantitative blood xcpt reagent stripTheresa Romano MD PhD Work Phone: Start: 26-68-7441Pjrugjc quantitative blood xcpt reagent stripTheresa Romano MD PhD Work Phone: Start: 32-24-7443Hocnvcj quantitative blood xcpt reagent stripTheresa Romano MD PhD Work Phone: Start: 46-75-2135Ersoj of phosphorus inorganicRachel M Poyle PA-C Work Phone: Start: 99-45-8673E-reactive proteinRachel M Poyle PA-C Work Phone: Start: 53-95-0651Jahdxbx quantitative blood xcpt reagent stripTheresa Romano MD PhD Work Phone: Start: 51-49-0295Bslevye quantitative blood xcpt reagent stripTheresa Romano MD PhD Work Phone: Start: 48-68-8242Sxraxri quantitative blood xcpt reagent stripMomargaret Romano MD PhD Work Phone: Start: 54-44-0115K-reactive proteinRachel M Poyle PA-C Work Phone: Start: 89-22-7027LEF shape Nom (Bld)Garima M Poyle PA-C Work Phone: Start: 76-06-2388Pstpw function panelRachel M Poyle PA-C Work Phone: Start: 95-74-8718Symspkx quantitative blood xcpt reagent stripTheresa Romano MD PhD Work Phone: Start: 60-17-0817Zjyjier quantitative blood xcpt reagent stripTheresa Romano MD PhD Work Phone: Start: 07-89-1147Mcnltof quantitative blood xcpt reagent stripTheresa Romano MD PhD Work Phone: Start: 44-60-7392Ukfbjfb quantitative blood xcpt reagent stripTheresa Romano MD PhD Work Phone: Start: 78-20-9577D-reactive proteinRachel Ching Poyle PA-C Work Phone: [phone]: 18-25-0460Ygcnu function panelRachel Ching Poyle PA-C Work Phone: Start: 69-81-5772Afapjxu quantitative blood xcpt reagent stripTheresa Romano MD PhD Work Phone: Start: 39-35-6430Isgbaxs quantitative blood xcpt reagent stripTheresa Romano MD PhD Work Phone: Start: 58-31-5203Uzcyf typing serologic rh (d)Garima Flower Poyle PA-C Work Phone: Start: 76-60-2002Tkmvnzm quantitative blood xcpt reagent stripTheresa Romano MD PhD Work Phone: Start: 63-92-0224Byecdpq quantitative blood xcpt reagent stripTheresa Romano MD PhD Work Phone: Start: 65-60-8688L-reactive proteinRachel Ching Poyle PA-C Work Phone: Start: 42-04-6282WVU shape Nom (Bld)Garima Flower Poyle PA-C Work Phone: Start: 94-97-0535Eteyr function panelRachel Ching Poyle PA-C Work Phone: Start: 57-78-9942Glcrebe quantitative blood xcpt reagent stripTheresa Romano MD PhD Work Phone: Start: 86-08-9551Wsesqde quantitative blood xcpt reagent stripTheresa Romano MD PhD Work Phone: Start: 45-20-4751CEPBY OSTOMY NURSING CONSULTLaura Acacia Borrego FIBRE TECHNOLOGIST-BINDERY MACHINE SETTER Work Phone: [phone]: 57-26-3081G-reactive proteinRachel Ching Poyle PA-C Work Phone: [phone]: 20-28-6714Irqfb function panelRachel M Poyle PA-C Work Phone: Start: 09-77-2211Qleqgmg quantitative blood xcpt reagent stripTheresa Romano MD PhD Work Phone: Start: 43-08-0691Qrqxdtx quantitative blood xcpt reagent stripTheresa Romano MD PhD Work Phone: Start: 11-19-2023 End: 20-79-8547Bybts of ferritinRachel M Poyle PA-C Work Phone: [phone]: 87-15-6141I-reactive proteinRachel Ching Poyle PA-C Work Phone: [phone]: 07-60-2089Ekpabhl quantitative blood xcpt reagent Keshia Romano MD PhD Work Phone: [phone]: 34-30-7885Fmhxj metabolic panel calcium total Garima Flower Poyle PA-C Work Phone: [phone]: 76-29-7822NIA shape Nom (Bld)Garima Flower Poyle PA-C Work Phone: [phone]: 71-26-9549Nbnfwdq quantitative blood xcpt reagent stripTheresa Romano MD PhD Work Phone: Start: 85-68-3016Hnkecih quantitative blood xcpt reagent Keshia Romano MD PhD Work Phone: Start: 81-85-1331Bnpso typing serologic rh (d)Garima Flower Poyle PA-C Work Phone: Start: 79-26-0642Ggwarszxtnokx metabolic panelRachel Ching Poyle PA-C Work Phone: Start: 57-96-4590SXMJ Antigen (LFIA)MD Yinka Lopez Work Phone: Start: 13-54-5158Fxfzpeslfnb Panel (PCR)MD Yinka Lopez Work Phone: Start: 92-47-1880II Yinka Lopez Work Phone: Start: 53-61-6317NX of head without contrastMD Yinka Lopez Work Phone: Start: 39-98-1965Zvmcd chest X-rayMD Yinka Lopez Work Phone: Start: 09-74-1308Zcrknlz quantitative blood xcpt reagent stripSarath Gamez MD Work Phone: [phone]: 43-74-3240Trkiexy quantitative blood xcpt reagent stripSarath Gamez MD Work Phone: [phone]: 97-86-3470U-reactive proteinAbbey L Hernandez PA-C Work Phone: [phone]: 09-52-4273Dqhzzdgqpbiiv metabolic panelDariel Janoch PA-C Work Phone: [phone]: 30-09-3464PKA shape Nom (Bld)Dariel Janoch PA-C Work Phone: [phone]: 39-82-1255Cwmfsfv quantitative blood xcpt reagent stripBekrystle Gamez MD Work Phone: [phone]: 61-19-6634Z-reactive proteinAbbey L Hernandez PA-C Work Phone: [phone]: 70-87-3345Dixdajzzjijwo metabolic panelDariel Janoch PA-C Work Phone: [phone]: 04-12-2428Gxtqqbn quantitative blood xcpt reagent stripSarath Gamez MD Work Phone: [phone]: 72-17-3523Csbwmrn quantitative blood xcpt reagent stripSarath Gamez MD Work Phone: [phone]: 93-82-0173Gitvv dip stick/tablet rgnt auto w/o microscopyXmary Fafaj PA-C Work Phone: [phone]: 33-26-3059B-reactive proteinAbbey L Hernandez PA-C Work Phone: [phone]: 55-56-3772Qntpkmqvcwmbv metabolic panelEvan Jancommon[facility] PA-C Work Phone: [phone]: 11-56-6073FWL shape Nom (Bld)Dariel Janoch PA-C Work Phone: [phone]: 31-75-3071Iktcuko bacterial blood aerobic w/id isolatesXchemaana Fafaj PA-C Work Phone: [phone]: 41-17-1265Yretcgb quantitative blood xcpt reagent stripSarath Gamez MD Work Phone: [phone]: 03-57-3323Ptgvmxl quantitative blood xcpt reagent stripSarath Gamez MD Work Phone: [phone]: 98-39-1417B-reactive proteinAbbey L Hernandez PA-C Work Phone: [phone]: 37-19-7303Raozglhsnpoti metabolic panelEvan Jancommonwealth regional specialty hospital PA-C Work Phone: [phone]: 27-10-2620Jgvegak quantitative blood xcpt reagent stripSarath Gamez MD Work Phone: [phone]: 10-42-3137Fzwgjml quantitative blood xcpt reagent stripSarath Gamez MD Work Phone: [phone]: 25-84-7473Yvzburu quantitative blood xcpt reagent stripSarath Gamez MD Work Phone: [phone]: 13-86-0140Q-reactive proteinAbbey L Hernandez PA-C Work Phone: [phone]: 68-85-7362Njropvrvqnadm metabolic panelEvan Jancommonwealth regional specialty hospital PA-C Work Phone: [phone]: 68-77-3902Hnowppa quantitative blood xcpt reagent stripSarath Gamez MD Work Phone: [phone]: 72-26-5796Dhhqjre quantitative blood xcpt reagent stripSarath Gamez MD Work Phone: [phone]: 38-90-5670Tuykugr quantitative blood xcpt reagent stripSarath Gamez MD Work Phone: [phone]: 08-98-0291Vqkug dip stick/tablet rgnt auto w/o microscopyEvEncompass Health- Work Phone: [phone]: 91-01-5320Xthwevzsbp exam chest single viewNew [facility]- Work Phone: [phone]: 52-35-0536Y-reactive proteinAbbey L Hernandez PA-C Work Phone: [phone]: 62-34-4261Pgkrlazlfztns metabolic panelNew [facility] Emergency Hospital-C Work Phone: [phone]: 92-86-6063Gwozjxc bacterial blood aerobic w/id isolatesNew [facility]- Work Phone: [phone]: 14-82-9001Zfxnxjk quantitative blood xcpt reagent stripSarath Gamez MD Work Phone: [phone]: 02-08-6705Emzlpbi quantitative blood xcpt reagent stripSarath Gamez MD Work Phone: [phone]: 06-91-0464Tnifdzz quantitative blood xcpt reagent stripSarath Gamez MD Work Phone: [phone]: 81-29-9553Qvqabyr quantitative blood xcpt reagent stripSarath Gamez MD Work Phone: [phone]: 00-84-3078O-reactive proteinAbbey L Hernandez PA-C Work Phone: [phone]: 08-07-2023 End: 25-98-4226Xlasm function panelCarmen D Celio FIBRE TECHNOLOGIST-BINDERY MACHINE SETTER Work Phone: [phone]: 40-64-6380Tkgfnwr quantitative blood xcpt reagent stripSarath Gamez MD Work Phone: [phone]: 04-75-0569Vthavxr quantitative blood xcpt reagent stripSarath Gamez MD Work Phone: [phone]: 20-81-6002Kblfyfx quantitative blood xcpt reagent stripSarath Gamez MD Work Phone: [phone]: 91-27-6018D-reactive proteinAbbey L Hernandez PA-C Work Phone: [phone]: 99-66-2715Glptc function panelCarmen D Celio FIBRE TECHNOLOGIST-BINDERY MACHINE SETTER Work Phone: [phone]: 45-29-5587Lsvarhg quantitative blood xcpt reagent stripSarath Gamez MD Work Phone: [phone]: 46-61-0450Awlrgao quantitative blood xcpt reagent stripSarath Gamez MD Work Phone: [phone]: 09-83-7957Vpndjsr quantitative blood xcpt reagent stripSarath Gamez MD Work Phone: [phone]: 90-59-8545Mbounyq quantitative blood xcpt reagent stripSarath Gamez MD Work Phone: [phone]: 85-44-8526BFD shape Nom (Bld)Antonella D Celio FIB[employer] TECHNOLOGIST-BINDERY MACHINE SETTER Work Phone: [phone]: 62-02-8694Wwlth function panelCarmen D Celio FIBRE TECHNOLOGIST-BINDERY MACHINE SETTER Work Phone: [phone]: 96-31-1482Byxcumi quantitative blood xcpt reagent stripSarath Gamez MD Work Phone: [phone]: 37-23-0279Dwqoxhn quantitative blood xcpt reagent stripSarath Gamez MD Work Phone: [phone]: 56-52-1779Voaaplm quantitative blood xcpt reagent stripStanleynharjinder Gamez MD Work Phone: [phone]: 22-36-7345Fbxjtkrgrc glycosylated t1yShfolcbwCarilion Clinic Heckyl Work Phone: Start: 52-09-1969Jyomf typing serologic rh (d)[facility] Work Phone: Start: 67-14-6891Mueuctjbvwxuo metabolic panelXCarilion Clinic Heckyl Work Phone: Start: 64-98-9687Rbo prsmptv pthgnc organism scrn w/colony estimjTwin County Regional Healthcare [facility] Work Phone: Start: 67-36-5584Qaha-cov-2 detection by dna/rna [facility] Work Phone: [phone]: 50-57-4695Ruojdjtj tomography of abdomen and pelvis with contrastDC Yinka Lopez Work Phone: Start: 27-52-6768N-ray of lumbar spine, four or more viewsDC Yinka Lopez Work Phone: Start: 35-76-6213Pwldo cultureMD Yinkashefali Lopez Work Phone: Start: 40-29-2938Kzsmvqyq emission tomography of whole body using fluorocholine (18-F)MD Yinka Lopez Work Phone: Start: 67-42-8612Lbqo marrow samplingMD Yinka Lopez Work Phone: start: 92-73-0253Dsxzq X-ray of right femurMD Yinka Lopez Work Phone: Start: 07-86-8845Njkqe X-ray of right hipMD Yinka Lopez Work Phone: start: 49-86-1478Aqacgdqtu ID (NA Multiplex Assay)MD Yinka Lopez Work Phone: start: 65-98-9930Qgsmi culture for bacteria, including anaerobic screenMD Yinka Lopez Work Phone: Start: 76-63-9923Crlfq cultureMD Yinka Lopez Work Phone: Start: 57-24-2283GR Yinka Lopez Work Phone: Start: 03-88-4340Ptov energy X-ray absorptiometryMD Yinka Lopez Work Phone: Start: 45-54-3458SS of paranasal sinus without contrastDC Yinka Lopez Work Phone: Start: 13-57-0629ParawkwllncRmr ClinicStart: 86-97-3048Trecp chest X-rayMD Yinka Lopez Work Phone: Start: 85-35-6806Farpbyww emission tomography of whole body using fluorocholine (18-F) Yinka Lopez Work Phone: Start: 03-84-9464Hcpiq chest X-rayDC Yinka Lopez Work Phone: Start: 04-90-4396Krygpmfdwf examination, osseous survey, completeMD Yinka Lopez Work Phone: Start: 06-90-0354XAE of right femur with contrastDC Yinka Lopez Work Phone: Start: 53-17-7238Whqhw X-ray of right femurMD Yinka Lopez Work Phone: Start: 44-22-5326Pgrqj X-ray of right hipDC Yinka Lopez Work Phone: Start: 46-02-1415Y-ray of right kneeMD Yinka Lopez Work Phone: start: 53-88-3527BSI of cervical spine with contrastDC Yinka Lopez Work Phone: start: 43-58-8960Ewnejhml emission tomography of whole body using fluorocholine (18-F) Yinkashefali Lopez Work Phone: Start: 70-56-1977SHL of thoracic spine with contrastMD Yinka Lopez Work Phone: Start: 87-26-6160Tqqkzdex emission tomography of whole body using fluorocholine (18-F) Yinka Lopez Work Phone: Start: 07-55-2925Vhrie X-ray of left handMD Yinka Lopez Work Phone: Start: 87-61-0357NES of cervical spine without contrastMD Yinka Lopez Work Phone: Start: 47-59-5258DW pre/post mri xrayDC Yinka Lopez Work Phone: Start: 21-67-3995JD Yinka Lopez Work Phone: start: 75-50-7594Csuhf X-ray of bilateral femursMD Yinka Lopez Work Phone: Start: 70-78-0164Jyadfh X-rayMD Yinka Lopez Work Phone: Start: 32-27-4947Vqevlcws emission tomography with computed tomographyMD Yinka Lopez Work Phone: Start: 92-48-6867Ydbatpyttv examination, osseous survey, completeDC Yinka Lopez Work Phone: Start: 87-04-9700PeilzvxrkdrPwfg Van Besien MD PhD Work Phone: start: 96-01-2309Hktcslmpay examination, osseous survey, completeDC Yinka Lopez Work Phone: Start: 60-78-6353Qpwetfhe emission tomography with computed tomographyMD Yinka Lopez Work Phone: Start: 86-15-0945TtzehemcmlkRedwnvh WATERS Start: 76-21-6697NtguftqtfyuHqcj Angel MD Work Phone: Abdominal hysterectomyPatrick VALENZUELA appendectomyPatrick VALENZUELA arthroscopic knee operationPatriccatracho VALENZUELA Comment on above:Lt.Arthroscopy of kneePatrick VALENZUELA Comment on above:Rt.CholecystectomyPatrick VALENZUELA CounselingKatherine Gallo Other Decompression of median nervePatrick VALENZUELA HemorrhoidectomyPatrick VALENZUELA History of hernia repairPatrick VALENZUELA History of operative procedure on elbowPatrick VALENZUELA Ligation of fallopian tubePatrick VALENZUELA Procedure on wristPatrick VALENZUELA Repair of single tendonPaephraim mcdowell fort logan hospitalcatracho VALENZUELA Plan of Treatment DateCare ActivityDetailAuthorStart: 90-09-7970Xnpthfncz for malignant neoplasm of colonNOMS HealthcareStart: 07-99-5866Wwjekxqw screeningDiabetes: Retinopathy ScreeningNOMS HealthcareStart: 57-37-5556Olfbdrkyj for malignant neoplasm of breastMammogramNOMS HealthcareStart: 84-02-2373Dryuleks screeningDiabetes: Retinopathy ScreeningNOMS HealthcareStart: 04-30-2026Medicare Annual Wellness (AWV)Medicare Annual Wellness (AWV)[facility] HealthcareStart: 29-73-2758Hpoymvbgbt A1c measurementDiabetes: Hemoglobin L9URAAC HealthcareStart: 2025 End: 64-94-9091Twduoly encounter bmvymcddv31/10/2025 10:00 AM EST Office Visit GRACIELA [place] [facility] [address] [place] [address] Emely Pedersen DO [address] [place] [address] [facility] 340Start: 01-39-4469Ymnxs panelLipid PanelUnTrinity Health System Twin City Medical CenterStart: 39-40-6984Bbhqw screening for proteinDiabetes: Urine Protein ScreeningChillicothe HospitalStpuryear: 08-22-2025 End: 59-81-3713YYUQPVAZD (HTRX)PNEUMONIA (HTRX) Lab Routine COPD with acute exacerbation (HCC) Pharyngitis, unspecified etiology Expected: 08/22/2025 (Approximate), Expires: 08/22/2026[facility] Work Phone: Comment on above:Expected: 08/22/2025 (Approximate), Expires: 08/22/2026Start: 08-17-2025 End: 85-09-4672Fhikvcz encounter procedureCardiologyComment on above:echoReturn in about 9 months (around 04/17/2025).Start: 74-06-2528Cljcwuvbvtpmh metabolic 2000 panel - Serum or PlasmaSumma Healthtart: 08-16-2025 End: 73-68-4915GdmdjwtieMercy Health Anderson Hospital CenterStart: 17-97-2182TcnowcwmeMercy Health Anderson Hospital CenterStart: 45-15-0085BfrobniguSumma Healthtart: 08-03-2025 End: 07-11-4496McdyykgwgMercy Health Anderson Hospital CenterStart: 04-91-1283LjlabjjedMercy Health Anderson Hospital CenterStart: 14-40-9075RefnefpoeMercy Health Anderson Hospital CenterStart: 53-66-6972EagoojcvuMercy Health Anderson Hospital CenterStart: 07-19-2025 End: 19-92-1023KeyqcyjteMercy Health Anderson Hospital CenterStart: 07-14-2025 End: 41-24-4080ImrgcfpykMercy Health Anderson Hospital CenterStart: 17-39-2407HdfgnqkxnMercy Health Anderson Hospital CenterStart: 80-27-8347DwoyzoehjMercy Health Anderson Hospital CenterStart: 84-46-3802PuqftdljwSumma Healthtart: 63-03-6243ZEZWD-19 Vaccine ( season)COVID-19 Vaccine ()[facility] LouisStart: 32-89-0014Vseizzgss vaccinationSouthview Medical Centertart: 06-26-2025 End: 65-00-2649Ubocvrd encounter procedureSJEFFERSON [facility] Start: 90-04-3520Cxtxfklopyek Vaccine: 65+ Years (3 of 3 - PPSV23 or PCV20) Pneumococcal Vaccine: 65+ Years (3 of 3 - PPSV23 or PCV20)NOMS HealthcareComment on above:Postponed from 10/05/2022 (Patient Refused)Start: 06-20-2025 Pneumococcal Vaccine: 65+ Years (3 of 3 - PPSV23, PCV20 or PCV21)Pneumococcal Vaccine: 65+ Years (3 of 3 - PPSV23, PCV20 or PCV21)NOMS HealthcareComment on above:Postponed from 10/05/2022 (Patient Refused)Start: 85-03-7140Xogaxlxbbq A1c measurementDiabetes: Hemoglobin P2AGLMG HealthcareStart: 06-15-2025 End: 22-07-6544ZenrqyxgxSumma Healthtart: 06-15-2025 End: 45-47-4950Aabddih encounter procedureNOMS [facility] [address] Start: 06-14-2025 End: 69-48-7492KydyqobvuSumma Healthtart: 06-14-2025 Lezex-7-bhgjulibezk.tumor marker [Mass/volume] in Serum or PlasmaSumma Healthtart: 06-07-2025 End: 82-87-6131PzinywzkbSumma Healthtart: 47-05-2920Lqyqk culture [facility]art: 05-30-2025 End: 00-52-9695ZjdstrvewSumma Healthtart: 04-23-5154Jurvcxg referralSelect Medical Specialty [facility] Work Phone: Start: 60-08-4746UcqvzmcjpChildren'S Hospital For Rehabilitation Start: 05-26-2025 End: 67-21-5729Ggeimog encounter procedureNOMS SEP FMStart: 67-64-7619Jcyxvp scan of lower limb veinsSumma Healthtart: 05-18-2025 [facility]: 05-15-2025 End: 12-67-4955Bkjbexm encounter ceueunkkx57/14/2025 10:00 AM EDT Consult [facility] [address] [place] [phone] Emely Pedersen DO [address] [place] [address] ArrivedSAREHABILITATION HOSPITAL OF SOUTH JERSEYComment on above:ArrivedStart: 90-73-7973Lbcmsitmr vaccinationInfluenza Vaccine (#1)NOMS HealthcareComment on above:Postponed from 07/03/2024 (Patient Refused)Start: 04-24-2025 End: 43-08-3554Optfvlp encounter procedureCardiologyComment on above:Return in about 9 months (around 04/17/2025).Start: 72-74-0989Qhlfwdg referralMarietta Osteopathic Clinic Work Phone: Start: 04-20-2025 End: 92-33-3779IotxugoomSumma Healthtart: 04-20-2025 End: 18-85-2877TkbktkfkoSumma Healthtart: 53-40-3133EuaaxfypeSumma Healthtart: 05-19-6494GfmefjcalSumma Healthtart: 04-10-2025 End: 53-72-9878Buesfoi encounter wnpdzxybi54/09/2025 10:20 AM EDT Office Visit [facility] [address] [place] [address] Emely Pedersen DO [address] [place] [address] Contusion of rib on left side, subsequent encounter (Primary Dx)[facility] FMComment on above:Contusion of rib on left side, subsequent encounter (Primary Dx)Start: 03-29-2025 End: 74-69-3744GPZUYHK TRACT INFECTION (HTRX)URINARY TRACT INFECTION (HTRX) Lab Routine Acute cystitis without hematuria Expected: 03/29/2025 (Approximate), Expires: 03/29/2026[facility] Work Phone: Comment on above:Expected: 03/29/2025 (Approximate), Expires: 03/29/2026Start: 03-28-2025 End: 86-55-6665BmeyjmxkySumma Healthtart: 90-37-4129TcwatofztSumma Healthtart: 40-09-6324HxmdqrzwjSumma Healthtart: 19-76-5784RmitjtdbiSumma Healthtart: 89-59-8269CdrpqmjzaSumma Healthtart: 32-02-2032JdfmwmasjSumma Healthtart: 03-01-2025 End: 84-30-2494Aexibub encounter lywitybsm51/30/2025 1:40 PM EDT Office Visit [facility] [address] [place] [address] Emely Pedersen DO [address] [place] [address] Medicare annual wellness visit, subsequent (Primary Dx)[facility] SE[facility] FMComment on above:Medicare annual wellness visit, subsequent (Primary Dx) Start: 39-42-1227AvledmzhbSumma Healthtart: 02-15-2025 End: 84-37-9455WncdxwtgwSumma Healthtart: 02-12-9215KtmcyvduySumma Healthtart: 02-01-2025 End: 41-30-1987Ruknrip encounter /02/2025 10:00 AM EDT Office Visit [facility] [address] [place] [address] Emely Pedersen, DO [address] [place] [address] [facility] FMStart: 28-20-3574BamrxloofChildren'S Hospital For Rehabilitation Start: 01-18-2025 End: 92-04-6365RhgjddexkSumma Healthtart: 26-96-4758Dnbyidwib for malignant neoplasm of breastMammogramNOAR HealthcareStart: 65-15-9485DlehdnrhfSumma Healthtart: 67-37-2981XodyvztqqSumma Healthtart: 70-85-0053QzwwpvsvkMercy Health Anderson Hospital CenterStart: 59-29-6318OznaseloxMercy Health Anderson Hospital CenterStart: 77-51-7649Gzemcmwqx for osteoporosisBone Density Scan [facility] HospitalStart: 26-06-0505RnguqrqkzSumma Healthtart: 03-89-7875SvwalweuhMercy Health Anderson Hospital CenterStart: 12-29-2024 [facility]: 12-28-2024 End: 09-54-7398AhaeeyhdgSumma Healthtart: 12-26-2024 End: 61-27-3167Qtalr type and Indirect antibody screen panel - BloodType and screen Lab Routine Liver lesion Expected: 12/26/2024 (Approximate), Expires: 12/20/2025[facility] Work Phone: Comment on above:Expected: 12/26/2024 (Approximate), Expires: 12/20/2025Start: 12-26-2024 End: 30-96-0416Ewgjpbshdsp time (PT) in Blood by Coagulation assayProtime-INR Lab Routine Liver lesion Expected: 12/26/2024 (Approximate), Expires: 12/20/2025 NOMS HealthcareComment on above:Expected: 12/26/2024 (Approximate), Expires: 12/20/2025Start: 12-26-2024 End: 66-16-5106Gpeilwcehcp [Units/volume] in Serum or PlasmaTSH Lab Routine Liver lesion Expected: 12/26/2024 (Approximate), Expires: 12/20/2025[facility] HealthcareComment on above:Expected: 12/26/2024 (Approximate), Expires: 12/20/2025Start: 11-68-0796Uzjpgysxju A1c measurementSouthview Medical Centertart: 12-20-2024 End: 59-53-8856Xnorsbr encounter ftrqdxuri08/18/2025 2:00 PM EST Consult [facility] [address] [place] [address] Yinka Lopez MD [address] [place] [address] [facility] FMComment on above:ArrivedStart: 12-12-2024 End: 32-96-6987Niwxeus encounter vusfpimvi99/10/2025 1:20 PM EST Office [facility] [address] [place] [address] Fabiola Palumbo, PARK MANAGER [address] [place] [address] [facility] FMStart: 42-46-9559LcecflvmsSumma Healthtart: 12-07-2024 End: 79-59-8812LxpoflluhSumma Healthtart: 12-01-2024 End: 89-41-7907Anzojgd encounter whumpkjdm34/30/2025 3:00 PM EST Office [facility] [address] [place] [address] Fabiola Palumbo, PARK MANAGER [address] [place] [address] [facility] FMStart: 01-29-2025Medicare Annual Wellness (AWV)Medicare Annual Wellness (AWV)[facility] LouisStart: 21-00-2683Qtckd screening for protein Diabetes: Urine Protein ScreeningChillicothe HospitalStart: 11-29-2024 End: 69-59-9176Vxrwzxm encounter naijoaigr20/28/2025 3:00 PM EST Appointment [facility] [address] [place] [address] MPWyoming Medical Center - Caspertart: 18-86-0332Zobgwge referralSelect Medical Specialty [facility] Work Phone: Start: 11-16-2024 End: 13-16-7623DqxfyoqhmSumma Healthtart: 35-50-8060Xtlzmte Directive DiscussionAdvance Directive DiscussionSouthview Medical Centertart: 10-27-2024 End: 38-04-2148GgjeqprigSumma Healthtart: 14-15-4034GnpyyvrktSumma Healthtart: 66-79-5293PwurwcpbiSumma Healthtart: 21-45-1692TczwfxbmeSumma Healthtart: 10-18-2024 End: 75-78-0681ZGD W Auto Differential panel - BloodChillicothe Hospital Work Phone: Comment on above:Expected: 10/18/2024, Expires: 10/18/2025Start: 10-18-2024 End: 57-49-8834fskiwzmdcd00/17/2024 11:00 AM EST Infusion [facility] [address] [place] [address] [facility]: 10-04-2024 End: 73-39-6583Zjvqlcj encounter kpscnsutv94/03/2024 10:40 AM EST Office Visit [facility] [address] [place] [address] Fabiola Palumbo, PARK MANAGER [address] [place] [address] [facility] CITYtart: 09-27-2024 End: 75-22-8741DqvnnzlubSumma Healthtart: 09-27-2024 End: 10-59-6500ZKW W Auto Differential panel - [facility] Work Phone: Comment on above:Expected: 09/27/2024, Expires: 09/27/2025Start: 09-27-2024 End: 58-90-2999Ehefgzouidgtz metabolic 2000 panel - Serum or PlasmaComprehensive metabolic panel Lab Routine Multiple myeloma not having achieved remission (Multi) Expected: 09/27/2024, Expires: 09/27/2025[facility] Work Phone: Comment on above:Expected: 09/27/2024, Expires: 09/27/2025Start: 09-27-2024 End: 13-53-6324ubjxnixhtt70/26/2024 9:45 AM EST Infusion [facility] [address] [place] [facility]ontart: 09-27-2024 End: 03-61-2783Zldvagx encounter upyvshcqb63/26/2024 8:50 AM EST Office Visit [facility] [address] [place] [address] Supa Lindquist MD PhD [address] [place] [address] [facility] CenterStart: 09-15-2024 [facility]: 11-21-8684Hoyqe-1-fetoprotein.tumor marker [Mass/volume] in Serum or PlasmaSumma Healthtart: 09-06-2024 End: 98-82-5895QVW W Auto Differential panel - BloodCBC and Auto Differential Lab Routine Multiple myeloma not having achieved remission (Multi) Expected: 09/06/2024, Expires: 09/06/2025[facility] Work Phone: Comment on above:Expected: 09/06/2024, Expires: 09/06/2025Start: 09-06-2024 End: 88-86-3455rchacgxlpt34/05/2024 1:45 PM EST Infusion [facility] [address] [place] [facility] Avontart: 09-06-2024 End: 80-30-1741Txeogei encounter /05/2024 1:00 PM EST Office Visit [facility] [address] [place] [address] Lisette Perkins, FIBRE TECHNOLOGIST-BINDERY MACHINE SETTER [address] [place] [address] [facility] Avontart: 08-25-2024 End: 74-85-7345Gqqtrqp encounter mnkgcayfv30/24/2024 3:00 PM EDT Consult [facility] [address] [place] [address] Sheila Pillai, DO [address] [address] [facility] GENSStart: 08-23-2024 End: 44-04-668704404431-cfuqzyusogcepl D3 [Mass/volume] in Serum or PlasmaVitamin D 25 hydroxy Total Lab Routine Vitamin D deficiency Expected: 08/23/2024 (Approximate), Expires: 08/23/2025[facility] HealthcareComment on above:Expected: 08/23/2024 (Approximate), Expires: 08/23/2025Start: 08-23-2024 End: 29-68-9084Zzjfnxwnn (Vitamin B12) [Mass/volume] in Serum or PlasmaVitamin B12 Lab Routine Normocytic anemia Expected: 08/23/2024 (Approximate), Expires: 08/23/2025[facility] HealthcareComment on above:Expected: 08/23/2024 (Approximate), Expires: 08/23/2025Start: 08-23-2024 End: 65-09-9113Kvghlr [Mass/volume] in Serum or PlasmaFolate Lab Routine Normocytic anemia Expected: 08/23/2024, Expires: 08/23/2025[facility] Comment on above:Expected: 08/23/2024, Expires: 08/23/2025Start: 08-23-2024 End: 84-19-7918Epljg 1996 panel - Serum or PlasmaLipid panel Lab Routine Adult general medical examination Hyperlipidemia, group D (CMS/HCC) Expected: 08/23/2024 (Approximate), Expires: 08/23/2025[facility] Work Phone: Comment on above:Expected: 08/23/2024 (Approximate), Expires: 08/23/2025Start: 08-23-2024 End: 65-19-7657Rozfqtwatonr/Creatinine panel in random UrineMicroalbumin / creatinine urine ratio Lab Routine Essential hypertension (CMS/HCC) Type 2 diabetes mellitus with other specified complication, unspecified whether snf insulin use (CMS/HCC) Expected: 08/23/2024 (Approximate), Expires: 08/23/2025[facility] HealthcareComment on above:Expected: 08/23/2024 (Approximate), Expires: 08/23/2025Start: 08-23-2024 End: 08-23-2025T SPOT TB TESTT SPOT TB TEST Lab Routine History of exposure to tuberculosis Chronic cough Expected: 08/23/2024 (Approximate), Expires: 08/23/2025[facility] Work Phone: Comment on above:Expected: 08/23/2024 (Approximate), Expires: 08/23/2025Start: 08-16-2024 End: 31-96-4490PMJ W Auto Differential panel - BloodCBC and Auto Differential Lab Routine Multiple myeloma not having achieved remission (Multi) Expected: 08/16/2024, Expires: 08/16/2025[facility] Service Area Work Phone: comment on above:Expected: 08/16/2024, Expires: 08/16/2025Start: 08-16-2024 End: 86-50-2269Bdsbbdrgdylsb metabolic 2000 panel - Serum or PlasmaComprehensive metabolic panel Lab Routine Multiple myeloma not having achieved remission (Multi) Expected: 08/16/2024, Expires: 08/16/2025[facility] Work Phone: Comment on above:Expected: 08/16/2024, Expires: 08/16/2025Start: 08-16-2024 End: 82-33-1638vwhgnyivby76/15/2024 8:30 AM EDT Infusion [facility] [address] [place], [place] [facility]art: 08-16-2024 End: 55-29-4815Bibbwep encounter klbmdcydo51/15/2024 8:30 AM EDT Office Visit [facility] [address] [place] [address] Supa Lindquist MD PhD [address] [place] [address] [facility] CenterStart: 07-26-2024 End: 03-68-8724hloaubjyyi98/24/2024 1:45 PM EDT Infusion [facility] [address] [place], [place] [facility] CenterStart: 07-26-2024 End: 31-09-2083Uhrlpvy encounter dqoceocrb68/24/2024 1:00 PM EDT Office Visit [facility] [address] [place] [address] Lisette Perkins, FIBRE TECHNOLOGIST-BINDERY MACHINE SETTER [address] [place] [address] [facility]: 07-20-2024 End: 17-86-9451LrgqdcjudvwzwouBqfluytevcfzney Sleep Center Routine Cough in adult Chronic cough Chronic obstructive pulmonary disease, unspecified COPD type (CMS/HCC) Essential hypertension (CMS/HCC) Paroxysmal atrial fibrillation (CMS/HCC) Hypersomnolence Expected: 07/20/2024 (Approximate), Expires: 07/20/2025[facility] Work Phone: Comment on above:Expected: 07/20/2024 (Approximate), Expires: 07/20/2025Start: 07-20-2024 End: 66-65-0894Zdumadbjjukx consultation with oiychyh2807/20/2024 10:40 AM EDT Telemedicine [facility] [address] [place] [address] Letty Newsome, PARK MANAGER [address] [place] [address] [facility] FMStart: 07-18-2024 End: 49-50-9573Kknivwe encounter /16/2024 10:20 AM EDT Office Visit Cardiology [address] [facility] [place] [address] [place] M[place] [address] [facility] [place] [address] Return in about 1 year (around 04/13/2024).CardiologyComment on above:Return in about 1 year (around 04/13/2024).Start: 07-05-2024 End: 00-76-0197lslkxtnidi95/03/2024 11:00 AM EDT Infusion [facility] [place] [address] [place] [address] ZM [facility]ontart: 72-47-0767Hwbrk-19 Vaccine () Covid-19 Vaccine ()[facility]ertart: 77-26-8251OBOEA-19 Vaccine ()COVID-19 Vaccine ()[facility] HospitalStart: 42-60-6309Ycqjrhlqs vaccinationChillicothe HospitalStpuryear: 06-28-2024 End: 30-68-3389vhmketakqg68/27/2024 10:15 AM EDT Infusion [facility] [address] [place] [address] IE [facility]: 06-21-2024 End: 81-07-2919mndsrxiqts43/20/2024 10:15 AM EDT Infusion [facility] [address] [place] [address] WO [facility]: 06-14-2024 End: 25-88-2541ggyqnkdyoj27/13/2024 10:15 AM EDT Infusion [facility] [address] [place] [address] [place] [facility] CenterStart: 06-14-2024 End: 88-30-8514Eexdzed encounter procedureOrem Community Hospital [facility]art: 06-07-2024 End: 87-81-3020yeejorxlyn31/06/2024 10:15 AM EDT Infusion [facility] [address] [place] [address] [facility] CenterStart: 06-07-2024 End: 19-09-7040ktxohefhew87/06/2024 8:30 AM EDT Infusion [facility] [address] [place], [place] RW [facility] CenterStart: 05-31-2024 End: 47-67-3126ubkedmmupb82/30/2024 3:45 PM EDT Infusion [facility] [address] [place], [place] [facility] CenterStart: 05-31-2024 End: 34-66-1577EEU W Auto Differential panel - BloodCBC and Auto Differential Lab Routine Multiple myeloma not having achieved remission (Multi) Expected: 05/31/2024, Expires: 05/31/2025[facility] Work Phone: Comment on above:Expected: 05/31/2024, Expires: 05/31/2025Start: 05-31-2024 End: 69-50-3946tzhvjwqapt77/30/2024 10:15 AM EDT Infusion [facility] [address] [place] [address] [facility]: [facility] End: 50-61-3405mmwichkqwg98/23/2024 2:45 PM EDT Infusion [facility] [address] [place], [place] [facility]-2024 End: 26-13-1866Ttjswce encounter hbhnxkucd61/23/2024 2:00 PM EDT Office Visit [facility] [address] [place] [address] Lisette Perkins, FIBRE TECHNOLOGIST-BINDERY MACHINE SETTER [address] [place] [address] [facility] [place]: 05-24-2024 End: 55-08-9769vffrxjsepz78/23/2024 10:15 AM EDT Infusion [facility] [address] [place] [address] [facility] [place]: 05-17-2024 End: 80-72-1747cizrzolmqq26/16/2024 3:45 PM EDT Infusion [facility] [address] [place], [place] [facility] [place]: 05-17-2024 End: 45-11-8951Lsxqkcm encounter odokswase81/16/2024 3:20 PM EDT Office Visit [facility] [address] [place] [address] Sup[place] Lindquist [place] PhD [address] [place] [address] [facility]: 05-17-2024 End: 91-62-6662ITP W Auto Differential panel - BloodCBC and Auto Differential Lab Routine Multiple myeloma not having achieved remission (Multi) Expected: 05/17/2024, Expires: 05/17/2025[facility] Work Phone: Comment on above:Expected: 05/17/2024, Expires: 05/17/2025Start: 05-17-2024 End: 94-61-9179Ehakydlhosfro metabolic 2000 panel - Serum or PlasmaComprehensive metabolic panel Lab Routine Multiple myeloma not having achieved remission (Multi) Expected: 05/17/2024, Expires: 05/17/2025[facility] Work Phone: Comment on above:Expected: 05/17/2024, Expires: 05/17/2025Start: 05-17-2024 End: 26-77-1714ciibanuaeiTI [facility] [place]: 05-17-2024 End: 33-31-6583Mliqvuh encounter rwltszons53/16/2024 9:10 AM EDT Office Visit [facility] [address] [place] [address] Supa Lindquist MD PhD [address] [place] [address] [facility] [place]: 05-10-2024 End: 96-87-4210Mxgue Protein Electrophoresis + ImmunofixationLE[facility] Service Area Work Phone: comment on above:Expected: 05/10/2024 (Approximate), Expires: 05/10/2025Start: 05-10-2024 End: 41-72-3288hmhympgnxr66/09/2024 10:15 AM EDT Infusion [facility] [address] [place] [address] [facility]: 99-18-3382Yxdnnzgl screeningDiabetes: Retinopathy ScreeningFILLMORE [facility] HealthcareStart: 05-03-2024 End: 74-76-7392gordztrvmx60/02/2024 3:45 PM EDT Infusion [facility] [address] [place], [place] [facility] [place]: 05-03-2024 End: 28-78-0410NHJ W Auto Differential panel - BloodCBC and Auto Differential Lab Routine Multiple myeloma not having achieved remission (Multi) Expected: 05/03/2024, Expires: 05/03/2025[facility] Service Area Work Phone: comment on above:Expected: 05/03/2024, Expires: 05/03/2025Start: 05-03-2024 End: 75-37-2414avyhxnjklv95/02/2024 10:15 AM EDT Infusion [facility] [address] [address] CN [facility]Start: 04-26-2024 End: 97-10-3744vyhddnsuty61/25/2024 10:15 AM EDT Infusion [facility] [address] [place] [address] KZ [facility] CenterStart: 04-19-2024 End: 51-32-3977NHP W Auto Differential panel - BloodCBC and Auto Differential Lab Routine Multiple myeloma not having achieved remission (Multi) Expected: 04/19/2024, Expires: 04/19/2025[facility] Work Phone: Comment on above:Expected: 04/19/2024, Expires: 04/19/2025Start: 04-19-2024 End: 65-39-3269Vrskheeentpgc metabolic 2000 panel - Serum or PlasmaComprehensive metabolic panel Lab Routine Multiple myeloma not having achieved remission (Multi) Expected: 04/19/2024, Expires: 04/19/2025[facility] Work Phone: Comment on above:Expected: 04/19/2024, Expires: 04/19/2025Start: 44-40-9644GlgoswkzySumma Healthtart: 04-19-2024 End: 65-86-8162mztukodsmlPQ [facility] CenterStart: 04-19-2024 End: 65-50-8165Qbbfuwb encounter procedureO[facility] Cancer CenterStart: 45-27-1801Epyvyxenhkcsf metabolic 2000 panel - Serum or PlasmaMercy Health Anderson Hospital CenterStart: 11-35-9527DvsdbkkbyMercy Health Anderson Hospital CenterStart: 04-12-2024 End: 54-44-6927eiirihqgea47/11/2024 10:15 AM EDT Infusion [facility] [address] [address] PG [facility] CenterStart: 63-30-1504Dzdcovyosiujm metabolic 2000 panel - Serum or PlasmaSumma Healthtart: 06-15-9202PwrbiflcnSumma Healthtart: 16-57-1098Ygqdroie to infectious diseases physician [facility]: 98-91-5518Jiqielgwfti pathogens DNA and RNA panel - Nasopharynx by JOHANN with non-probe detectionSumma Healthtart: 46-33-2302GgkjnetzmSumma Healthtart: 65-10-6247Exkgvlwe to gastroenterologistSumma Healthtart: 86-36-3051Qwhnuvphy culture of sputumSumma Healthtart: 07-76-3802Nsdjfjda admissionSumma Healthtart: 04-10-2024 [facility]: 40-79-1368SW of head without contrast [facility]: 03-92-3135YS Unspecified body region WO contrastSumma Healthtart: 77-84-0317Emsqihxq of Peritoneal Cavity, Percutaneous ApproachSumma Healthtart: 04-05-2024 End: 20-28-9859tbvadrwwem59/04/2024 3:30 PM EDT Infusion [facility] [address] [place], [place] QHMary [facility] CenterStart: 04-05-2024 End: 22-88-3942ejuwjivkug02/04/2024 10:15 AM EDT Infusion [facility] [address] [place] [address] [place] [facility] CenterStart: 03-29-2024 End: 12-67-9349jamzquzoek62/28/2024 10:15 AM EDT Infusion [facility] [address] [place] [address] VC [facility] CenterStart: 03-22-2024 End: 35-36-9643egvbmgstab09/21/2024 2:30 PM EDT Infusion [facility] [address] [place], [place] SR [facility] CenterStart: 03-22-2024 End: 01-49-6251Kzucyiz encounter gnffisftv81/21/2024 1:20 PM EDT Office Visit [facility] [address] [place] [address] Supa Lindquist MD PhD [address] [place] [address] [facility] CenterStart: 03-15-2024 End: 29-41-3314ouwouovtjq87/14/2024 10:15 AM EDT Infusion [facility] [address] [place] [address] KQ [facility] CenterStart: 03-08-2024 End: 33-98-3753kferuywjhx32/07/2024 10:15 AM EDT Infusion [facility] [address] [place] [address] JU [facility] CenterStart: 03-01-2024 End: 59-90-6959jivdheevog49/30/2024 10:15 AM EDT Infusion [facility] [address] [place] [address] GI [facility] CenterStart: 02-23-2024 End: 63-40-9580wamjsqaakn33/23/2024 10:15 AM EDT Infusion [facility] [address] [place] [address] GA [facility] CenterStart: 02-23-2024 End: 00-57-0378Pqwoouu encounter zvdhrkoyj04/23/2024 9:10 AM EDT Office Visit [facility] [address]st [place] [address] Supa Lindquist MD PhD [address] [place] [address] [facility]: 02-16-2024 End: 00-85-9889ANA W Auto Differential panel - BloodCBC and Auto Differential Lab Routine Multiple myeloma not having achieved remission (Multi) Expected: 02/16/2024 (Approximate), Expires: 02/13/2025[facility] Work Phone: Comment on above:Expected: 02/16/2024 (Approximate), Expires: 02/13/2025Start: 02-16-2024 End: 24-48-7142Hwtxasspmdjrq metabolic 2000 panel - Serum or PlasmaComprehensive Metabolic Panel Lab Routine Multiple myeloma not having achieved remission (Multi) Expected: 02/16/2024 (Approximate), Expires: 02/13/2025[facility] Work Phone: Comment on above:Expected: 02/16/2024 (Approximate), Expires: 02/13/2025Start: 02-16-2024 End: 04-60-7000Ykgqzgqegamozk light chains.free panel - SerumKappa/Lambda Free Light Chain, Serum Lab Routine Multiple myeloma not having achieved remission (Multi) Expected: 02/16/2024 (Approximate), Expires: 02/13/2025[facility] Work Phone: Comment on above:Expected: 02/16/2024 (Approximate), Expires: 02/13/2025Start: 02-16-2024 End: 64-86-3091Tuykffukwngbohw (IgG, IgA, IgM)Immunoglobulins (IgG, IgA, IgM) Lab Routine Multiple myeloma not having achieved remission (Multi) Expected: 02/16/2024 (Approximate), Expires: 02/13/2025[facility] Work Phone: Comment on above:Expected: 02/16/2024 (Approximate), Expires: 02/13/2025Start: 02-16-2024 End: 03-04-6457Jnjoggz electrophoresis panel - Serum or PlasmaSerum Protein Electrophoresis Lab Routine Multiple myeloma not having achieved remission (Multi) Expected: 02/16/2024 (Approximate), Expires: 02/13/2025[facility] Work Phone: Comment on above:Expected: 02/16/2024 (Approximate), Expires: 02/13/2025Start: 02-16-2024 End: 74-68-6334bcytoapgcx00/16/2024 10:15 AM EDT Infusion [facility] [place] [address] [place] [address] [facility] CenterStart: 33-57-4717Kteoum scan of lower limb veinsUS venous duplex LE [facility]: 03-71-9908TJ Lower extremity vein - [facility]ert[facility]: 02-09-2024 End: 34-51-3065GQ.doppler Lower extremity vein - [facility] Service Area Work Phone: comment on above:Once for 1 Occurrences starting 02/09/2024 until 02/09/2024Expected: 02/09/2024 (Approximate), Expires: 02/08/2026Start: 02-09-2024 End: 36-04-4386nudwfbvzgs17/09/2024 10:15 AM EDT Infusion [facility] [address] [place] [address] [facility] CenterStart: 02-02-2024 End: 42-37-9425jngpqbewuq62/02/2024 10:15 AM EDT Infusion [facility] [place] [address] [address] ER [facility] CenterStart: 01-26-2024 End: 13-66-0731jlmoacetpt86/26/2024 1:45 PM EDT Infusion [facility] [place] [address] [place], [place] [facility] CenterStart: 01-26-2024 End: 55-31-1233Jscfmiz encounter procedureMountain View Regional Medical Centertart: 95-02-4909Ovnovugumoi observation [Identifier] in Unspecified specimen by Gram stainGram StainSumma Healthtart: 83-74-2486Ddvcscy referralSelect Medical Specialty [facility] Work Phone: Start: 41-75-8785Sfczwurmn culture of sputumSumma Healthtart: 52-95-1474SiccvieqtSumma Healthtart: 91-18-0014Yyxdi chest X-rayXR chest 2V*[facility]: 01-19-2024 End: 28-58-5165msklscriyf40/19/2024 11:00 AM EDT Infusion [facility] [address] [place] [address] BFMountain View Regional Medical Centertart: 01-12-2024 End: 97-97-3195ydzwrvmtlz43/12/2024 11:00 AM EDT Infusion [facility] [address] [place] [address] OIMountain View Regional Medical Centertart: 01-05-2024 End: 22-42-1042jjsgqklrsz05/05/2024 9:00 AM EST Infusion [facility] [address] [place], [place] ZVMountain View Regional Medical Centertart: 01-05-2024 End: 15-75-6144Levowia encounter yodcwscyc56/05/2024 8:30 AM EST Office Visit [facility] [address]st [place] [address] Lisette Perkins, FIBRE TECHNOLOGIST-BINDERY MACHINE SETTER [address], [address] [address] [facility]: 08-40-9000Cehcwqri identified in Blood by CultureSumma Healthtart: 12-08-2023 End: 95-35-2569jzphwbfuzb53/06/2024 8:00 AM EST Infusion [facility] [address] [facility] [place], [place] [address] [place] [facility] [place]: 01-31-2024Medicare Annual Wellness VisitMedicare Annual Wellness Visit (AWV)[facility]: 11-27-2023 End: 11-22-2024 reactive protein [Mass/volume] in Serum or PlasmaC-Reactive Protein Lab Routine Multiple myeloma not having achieved remission (CMS/HCC) Expected: 11/27/2023 (Approximate), Expires: 11/22/2024Un[facility] Work Phone: Comment on above:Expected: 11/27/2023 (Approximate), Expires: 11/22/2024Start: 11-27-2023 End: 67-05-2947GZI W Auto Differential panel - BloodCBC and Auto Differential Lab Routine Multiple myeloma not having achieved remission (CMS/HCC) Expected: 11/27/2023 (Approximate), Expires: 11/22/2024Un[facility] Work Phone: Comment on above:Expected: 11/27/2023 (Approximate), Expires: 11/22/2024Start: 11-27-2023 End: 13-27-7303Uroxqxdg [Mass/volume] in Serum or PlasmaFerritin Lab Routine Multiple myeloma not having achieved remission (CMS/HCC) Expected: 11/27/2023 ( Approximate), Expires: 11/22/2024Un[facility] Work Phone: Comment on above:Expected: 11/27/2023 (Approximate), Expires: 11/22/2024Start: 11-27-2023 End: 06-22-3449Ziwpvvwdlv [Mass/volume] in Platelet poor plasma by Coagulation assayFibrinogen Lab Routine Multiple myeloma not having achieved remission (CMS/HCC) Expected: 11/27/2023 (Approximate), Expires: 11/22/2024Un[facility] Work Phone: Comment on above:Expected: 11/27/2023 (Approximate), Expires: 11/22/2024Start: 11-27-2023 End: 20-84-1615Avwosmwjv [Mass/volume] in Serum or PlasmaMagnesium Lab Routine Multiple myeloma not having achieved remission (CMS/HCC) Expected: 11/27/2023 (Approximate), Expires: 11/22/2024[facility] Work Phone: Comment on above:Expected: 11/27/2023 (Approximate), Expires: 11/22/2024Start: 11-27-2023 End: 20-81-6463Jfmee function 2000 panel - Serum or PlasmaRenal function panel Lab Routine Multiple myeloma not having achieved remission (CMS/HCC) Expected: 11/27/2023 (Approximate), Expires: 11/22/2024[facility] Work Phone: Comment on above:Expected: 11/27/2023 (Approximate), Expires: 11/22/2024Start: 11-27-2023 End: 40-63-8623lsnepvchtq73/26/2024 12:45 PM EST Infusion [facility] [address] [place] [address] [facility]: 11-27-2023 End: 95-36-8527Muzrwtf encounter dvvvujred56/26/2024 11:30 AM EST Office Visit [facility] [address] [place] [address] Lisette Perkins, FIBRE TECHNOLOGIST-BINDERY MACHINE SETTER [address], [address] [address] [facility]: 62-57-0351BwogotratSumma Healthtart: 11-24-2023 End: 25-46-0082yxhlbmahjm47/23/2024 2:15 PM EST Lab [facility] [address] [place] [address] EUMountain View Regional Medical Centertart: 11-24-2023 End: 30-04-4485Mleqirw encounter axglcfqsf05/23/2024 2:00 PM EST Office Visit [facility] [address] [place] [address] Lisette Perkins, FIBRE TECHNOLOGIST-BINDERY MACHINE SETTER [address] [facility] [place], [place] [address] [place] [address] [facility]: 93-02-7831Afeqgxiruw A1c measurementPeoples Hospital: 11-03-2023 End: 37-33-2245tchdbzoieo15/02/2024 9:00 AM EST Infusion [facility] [address] [place], [place] GEMountain View Regional Medical Centertart: 12-90-0794Igoaoza Directive DiscussionAdvance Directive DiscussionSouthview Medical Centertart: 26-10-1044Lmulmeghsp Health Screening Behavioral Health ScreeningSouthview Medical Centertart: 76-08-1495QdehdwxcfSumma Healthtart: 04-09-6054MpkjtzjibSumma Healthtart: 10-27-2023 End: 02-74-8740asqoqdowig99/26/2023 9:00 AM EST Infusion [facility] [address] [place], [place] WVMountain View Regional Medical Centertart: 10-20-2023 End: 56-92-3487qwoppaonlv99/19/2023 9:00 AM EST Infusion [facility] [address] [place], [place] JZMountain View Regional Medical Centertart: 38-94-4286Khaxmunlz for malignant neoplasm of breast [facility]: 10-13-2023 End: 92-05-5972mwjtnumhtu10/12/2023 9:00 AM EST Infusion [facility] [address] [place] PC [facility]: 10-06-2023 End: 50-43-9302izbjbfhkxj11/05/2023 12:30 PM EST Infusion [facility] [address] [address] WH [facility] CenterStart: 10-06-2023 End: 96-49-8157Mxouhex encounter tnjiuiekp47/05/2023 10:30 AM EST Office Visit [facility] [address] [place] [address] Supa Lindquist MD PhD [address] [place] [address] [facility] [place]: 09-29-2023 End: 30-54-7223kpeszeyttq29/28/2023 3:30 PM EST Infusion [facility] [address] [facility] [place], [id number] FE [facility] [place]: 09-22-2023 End: 15-33-2911jeavonbqum94/21/2023 9:00 AM EST Infusion [facility] [address] [place], [place] LJ [facility] CenterStart: 09-15-2023 End: 68-47-3631pcxvvndeya15/14/2023 3:15 PM EST Infusion [facility] [address] [place], [place] AN [facility] CenterStart: 09-08-2023 End: 80-46-0475Wuorrde electrophoresis panel - Serum or PlasmaLEA REGIONAL [facility]ICAL [facility] Service Area Work Phone: Comment on above:Expected: 09/08/2023 (Approximate), Expires: 09/08/2024Start: 09-08-2023 End: 03-67-5749bvifyedqph00/07/2023 11:00 AM EST Infusion [facility] [address] [place] [address] [facility]: 09-08-2023 End: 43-27-3476Ohxqolo encounter fadkwhbye12/07/2023 10:30 AM EST Office Visit [facility] [address] [place] [address] [place] PhD [address] [place] [address] [facility]: 09-01-2023 End: 35-45-7881jrrrqmaqig35/31/2023 3:15 PM EDT Infusion [facility] [address] [place], [place] [facility] CenterStart: 63-08-5613Ytlwgpsaga A1c dmyvehnxqqlGqM2VBkertpeeo ClinicStart: 08-20-2023 End: 28-53-6626Plwqbvb encounter isblyhoio58/19/2023 3:20 PM EDT Office Visit [facility] [address] [facility] [address] [place] [address] Supa Lindquist MD PhD [address] [place] [address] [facility] CenterStart: 08-20-2023 End: 83-91-1066cvenfvtypvSF [facility] CenterStart: 08-17-2023 End: 72-61-8954Vyji-2-Microglobulin [Mass/volume] in Serum or PlasmaBeta 2 Microglobuin Lab Routine 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) Expected: 08/17/2023 (Approximate), Expires: 08/14/2024UnTr[facility] Work Phone: Comment on above:Expected: 08/17/2023 (Approximate), Expires: 08/14/2024Start: 08-17-2023 End: 49-08-7600Gulfcrbryctjau light chains.free panel - SerumKappa/Lambda Free Light Chain, Serum Lab Routine 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) Expected: 08/17/2023 (Approximate), Expires: 08/14/2024[facility] Work Phone: Comment on above:Expected: 08/17/2023 (Approximate), Expires: 08/14/2024Start: 08-17-2023 End: 79-27-0832Oaklvxwsicxyzkt (IgG, IgA, IgM)Immunoglobulins (IgG, IgA, IgM) Lab Routine 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) Expected: 08/17/2023 (Approximate), Expires: 08/14/2024[facility] Work Phone: Comment on above:Expected: 08/17/2023 (Approximate), Expires: 08/14/2024Start: 08-17-2023 End: 30-41-3775Jbjgovv dehydrogenase [Enzymatic activity/volume] in Serum or Plasma by Lactate to pyruvate reactionLactate Dehydrogenase Lab Routine 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) Expected: 08/17/2023 (Approximate), Expires: 08/14/2024[facility] Work Phone: Comment on above:Expected: 08/17/2023 (Approximate), Expires: 08/14/2024Start: 08-17-2023 End: 60-42-1911Zsiss Protein Electrophoresis + ImmunofixationSerum Protein Electrophoresis + Immunofixation Lab Routine 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) Expected: 08/17/2023 (Approximate), Expires: 08/14/2024[facility] Service Area Work Phone: comment on above:Expected: 08/17/2023 (Approximate), Expires: 08/14/2024Start: 08-17-2023 End: 64-96-8135Nqfruyt encounter jduwtgsdo83/16/2023 10:00 AM EDT Office Visit [facility] [address] [place] [address] AN [facility] CenterStart: 08-17-2023 End: 27-61-9993eqvnqlzzjhRP [facility] CenterStart: 08-14-2023 End: 08-12-2024 reactive protein [Mass/volume] in Serum or PlasmaUnTrinity Health System [facility] Work Phone: Start: 08-14-2023 End: 23-79-7076HEI W Auto Differential panel - BloodLEA REGIONAL MEDICAL CENTER Service Area Work Phone: Start: 08-14-2023 End: 33-69-4696Rcjuveei [Mass/volume] in Serum or PlasmaUnTrinity Health System [facility] City [facility] Center Work Phone: Start: 08-14-2023 End: 47-68-0397Sxeckweeia [Mass/volume] in Platelet poor plasma by Coagulation assayChillicothe Hospital Work Phone: Start: 08-14-2023 End: 41-36-1455Dzdtrbask [Mass/volume] in Serum or PlasmaUnTrinity Health System [facility] City Medical Center Work Phone: Start: 08-14-2023 End: 21-07-3661Uqset function 2000 panel - [facility] or PlasmaUnTrinity Health System [facility] Center Work Phone: Start: 08-14-2023 End: 53-91-3126Satuk [Mass/volume] in Serum or PlasmaUnTrinity Health System [facility] City [facility] Center Work Phone: Start: 08-14-2023 End: 46-94-6516tytwfgbstyJC [facility]: 58-45-4155Bjacelpf identified in Urine by CultureUrine CultureChildren'S Hospital For Rehabilitation Start: 15-40-7973Hnwuezuoogina [Mass/volume] in Serum or PlasmaSumma Healthtart: 86-84-0049Pwzkrh measurementSumma Healthtart: 15-69-2843CWPKN-19 Vaccine ( season)COVID-19 Vaccine ( season)[facility]: 07-03-2023 Influenza vaccinationPeoples Hospital: 35-53-8705AlwreoqmeSumma Healthtart: 04-06-8011RkbtjrjczSumma Healthtart: 02-24-2023 End: 57-21-8995JfmpnzopkSumma Healthtart: 73-49-3494Kqku marrow samplingSumma Healthtart: 02-18-2023 End: 34-20-0900NlerqnjokSumma Healthtart: 79-34-8026XygvqrfuzSumma Healthtart: 70-11-1051MhkprjcmcSumma Healthtart: 04-37-2949Cyltykgwbcxaz metabolic 2000 panel - Serum or PlasmaSumma Healthtart: 02-05-2023 End: 52-09-3243UbskddpkbSumma Healthtart: 28-13-6313Hmxln chemistry [facility]: 88-95-7911TpurmzitvSumma Healthtart: 83-35-2069Meaca chemistrySumma Healthtart: 30-35-8265QjognsyjeSumma Healthtart: 52-30-2575Szxqa chemistry [facility]: 01-29-2023 End: 73-30-7344CbksavalySumma Healthtart: 08-38-4197Eulzetto identified in Urine by CultureUrine CultureChildren'S Hospital For Rehabilitation Start: 15-77-5556Hbcws culture for bacteria, including anaerobic screenBlood CultureSumma Healthtart: 01-23-6706Lkwum cultureUrine CultureSumma Healthtart: 21-17-7747Fovhxbzj admission [facility]: 01-05-4624Quufcmrh to oncologist [facility]: 82-22-4113YvwpupqnvSumma Healthtart: 52-69-1159JynjaeftjSumma Healthtart: 12-26-2022 [facility]: 12-26-2022 End: 34-28-3046MzohaplebSumma Healthtart: 24-73-6941UscbngzkqSumma Healthtart: 28-76-9690HezsbnhhoMercy Health Anderson Hospital CenterStart: 82-87-1324ZkrsvzypvMercy Health Anderson Hospital CenterStart: 23-06-1377LlhploubwMercy Health Anderson Hospital CenterStart: 47-72-7724QoklvkjveMercy Health Anderson Hospital CenterStart: 23-28-3603ElfwianczMercy Health Anderson Hospital CenterStart: 67-77-2417UtrqbcycfMercy Health Anderson Hospital CenterStart: 21-08-9296ArkyeybxxMercy Health Anderson Hospital CenterStart: 15-54-5205FzafhxsqtMercy Health Anderson Hospital CenterStart: 29-31-4566EhebqqwcgMercy Health Anderson Hospital CenterStart: 11-13-2022 End: 90-13-9349ZaysqfnuvMercy Health Anderson Hospital CenterStart: 23-96-1508JcippmhzkMercy Health Anderson Hospital CenterStart: 04-91-6154QupsllhliMercy Health Anderson Hospital CenterStart: 11-05-2022 End: 86-95-8583DrtnyjzjcMercy Health Anderson Hospital CenterStart: 10-79-3848EavwfddtaMercy Health Anderson Hospital CenterStart: 49-20-0409MqlangsafMercy Health Anderson Hospital CenterStart: 21-33-9786RgcomalypMercy Health Anderson Hospital CenterStart: 99-37-1543BlhrrknvlMercy Health Anderson Hospital CenterStart: 58-52-1482DrfcseyzvMercy Health Anderson Hospital CenterStart: 65-41-1988Uzcafkigqygj vaccinationPeoples Hospital: 43-28-4757Aitxfeedvwbn Vaccine: 50+ (3 of 3 - PPSV23, PCV20 or PCV21) Pneumococcal Vaccine: 50+ (3 of 3 - PPSV23, PCV20 or PCV21)[facility] Start: 39-43-9398Gdzwzlltqenf Vaccine: 65+ (3 of 3 - PPSV23 or PCV20) Pneumococcal Vaccine: 65+ (3 of 3 - PPSV23 or PCV20)[facility]: 25-30-0953Pacdtbuhkttq Vaccine: 65+ Years (3 - PPSV23 or PCV20)Pneumococcal Vaccine: 65+ Years (3 - PPSV23 or PCV20)[facility]: 36-73-5422Tybrlzurlpex Vaccine: 65+ Years (3 of 3 - PCV20 or PCV21)Pneumococcal Vaccine: 65+ Years (3 of 3 - PCV20 or PCV21)[facility]: 10-05-2022 Pneumococcal Vaccine: 65+ Years (3 of 3 - PPSV23 or PCV20)Pneumococcal Vaccine: 65+ Years (3 of 3 - PPSV23 or PCV20)[facility]: 89-75-2292Disfohnnepos Vaccine: 65+ Years (3 of 3 - PPSV23, PCV20 or PCV21) Pneumococcal Vaccine: 65+ Years (3 of 3 - PPSV23, PCV20 or PCV21)[facility] Healthcare Start: 44-50-1580FiczfzjcoyPeoples Hospital: 88-48-5901DkimlsnwkSumma Healthtart: 69-69-4126KfgabffloSumma Healthtart: 09-24-2022 End: 27-16-5817UsphuipkhSumma Healthtart: 75-35-6921ZhncavtpxSumma Healthtart: 02-99-0530CphlzmxvpSumma Healthtart: 10-39-2558StvcnwdiaSumma Healthtart: 73-51-7194AorfgpgvbSumma Healthtart: 82-01-5548YmfjaugjvSumma Healthtart: 88-55-5060FDKWJRF DIRECTIVE DISCUSSIONADVANCE DIRECTIVE DISCUSSIONSouthview Medical Centertart: 36-70-6444IYOX DENSITYBONE DENSITYSouthview Medical Centertart: 2022 Screening for osteoporosisBone Density ScreeningSouthview Medical Centertart: 14-94-1295VluvwwxyeSumma Healthtart: 67-71-8485AsliionwiSumma Healthtart: 91-78-3916QkpllyeidSumma Healthtart: 94-26-0754EulryiafySumma Healthtart: 71-81-6104WxoupoelmSumma Healthtart: 08-20-2022 End: 12-37-1921McjxrxqvwSumma Healthtart: 08-19-2022 End: 17-87-0647JuibocsukSumma Healthtart: 08-06-2022 End: 76-90-3841WhjzrmorsSumma Healthtart: 40-65-1251FoqraavluSumma Healthtart: 07-30-2022 End: 98-43-1406WahhmgpfoSumma Healthtart: 07-29-2022 End: 93-18-2505ChatihcicSumma Healthtart: 07-23-2022 End: 27-98-9171NcxenxsfhMercy Health Anderson Hospital CenterStart: 57-34-4481UovsnrcvfMercy Health Anderson Hospital CenterStart: 07-15-2022 End: 86-87-1734ZwflgwqauMercy Health Anderson Hospital CenterStart: 92-48-4954AujbocyjjMercy Health Anderson Hospital CenterStart: 78-74-7039EkfbidnapMercy Health Anderson Hospital CenterStart: 18-31-7569PilhmdpmrMercy Health Anderson Hospital CenterStart: 28-86-6090Enkpgbusl vaccinationINFLUENZA (#1)[facility]: 04-04-1638AhfbcinzjMercy Health Anderson Hospital CenterStart: 24-56-2811WtwggbrdkSumma Healthtart: 00-30-3710KeoonvxesMercy Health Anderson Hospital Ctr Work Phone: Start: 77-17-4628Tfymvcxov [facility] Work Phone: Start: 96-86-3460Jeqxkbsz screeningDiabetes: Retinopathy ScreeningChillicothe HospitalStart: 04-09-2022 End: 05-23-6897OxjzzhnhfMercy Health Anderson Hospital CenterStart: 02-94-5220QalvmksltMercy Health Anderson Hospital Ctr Work Phone: Start: 03-25-2022 End: 87-54-1657BbznsykhgMercy Health Anderson Hospital CenterStart: 89-33-6690TagcoeituMercy Health Anderson Hospital CenterStart: 03-05-2022 End: 64-64-2364JwcnfxkinMercy Health Anderson Hospital CenterStart: 16-82-1634WqzclrcxaMercy Health [facility] Hospital [facility]tr Work Phone: Start: 02-19-2022 End: 04-17-8425AhtaewyunMercy Health Anderson Hospital CenterStart: 70-28-3030IerpiewjhMercy Health Anderson Hospital Ctr Work Phone: Start: 02-05-2022 End: 89-40-3644OtbgerkjhMercy Health Anderson Hospital CenterStart: 24-68-9634QlpqxmvuxMercy Health Anderson Hospital CenterStart: 08-38-7996EogelzdyhMercy Health Anderson Hospital Ctr Work Phone: Start: 95-53-6474HbnffdyppChildren'S Hospital For Rehabilitation Start: 87-69-5301VmgaqgdvcSumma Healthtart: 01-01-2022 End: 41-09-0133QshdwuuknSumma Healthtart: 39-21-9317JggvzbwwlMercy Health Anderson Hospital Ctr Work Phone: Start: 44-68-2541WripfwwrnChildren'S Hospital For Rehabilitation Start: 95-85-1482HogtzkhskMercy Health Anderson Hospital Ctr Work Phone: Start: 12-04-2021 End: 20-09-5461ZqhbjkrusMercy Health Anderson Hospital CenterStart: 36-20-6934WmolzzouvMercy Health Anderson Hospital Ctr Work Phone: Start: 15-31-2686HemvvgpsqChildren'S Hospital For Rehabilitation Start: 11-19-2021 End: 70-92-2364VocrnieszSumma Healthtart: 26-48-6789BDEAE-19 VACCINE (4 - Booster for Pfizer series)COVID-19 VACCINE (4 - Booster for Pfizer series)[facility]: 26-19-8269FDNUY-19 Vaccine (4 - Pfizer risk series)COVID-19 Vaccine (4 - Pfizer risk series)[facility] HospitalStart: 70-73-6034VchqlwotzsChillicothe HospitalStpuryear: 11-12-2021 Comprehensive metabolic 2000 panel - Serum or PlasmaSumma Healthtart: 11-12-2021 End: 36-80-2368TjafrrnwhSumma Healthtart: 80-87-7007ZrnmxelixSumma Healthtart: 82-67-4888DyzcrigbiSumma Healthtart: 44-21-9771ZTOUVXTHNR ASSESSMENTDEPRESSION ASSESSMENTSouthview Medical Centertart: 53-78-4697ZyatzybrkSumma Healthtart: 10-22-2021 End: 59-49-2749CaaqlmpnfSumma Healthtart: 10-16-2021 End: 79-55-8712XjoffjgvlSumma Healthtart: 86-05-9088GwvzlaareMercy Health Anderson Hospital Ctr Work Phone: Start: 50-53-8994LzuvgxfykChildren'S Hospital For Rehabilitation Start: 58-30-3657XjzrkgcgiMercy Health Anderson Hospital Ctr Work Phone: Start: 00-23-9326JszuneespChildren'S Hospital For Rehabilitation Start: 20-62-1595NzesatsgfMercy Health Anderson Hospital Ctr Work Phone: Start: 09-25-2021 End: 08-50-7959IxokatdcvMercy Health Anderson Hospital CenterStart: 99-55-7032Pjusoobxr [facility] Work Phone: Start: 09-18-2021 End: 71-44-4846TbxyvwguyMercy Health Anderson Hospital CenterStart: 51-04-8892Yyrxvxjtd [facility] Work Phone: Start: 09-04-2021 End: 79-83-2252HltldyxfyMercy Health Anderson Hospital CenterStart: 43-21-8081PkpkemhmqMercy Health Anderson Hospital Ctr Work Phone: Start: 08-07-2021 End: 94-72-7099IrsuvechjSumma Healthtart: 50-92-2267VhegvqgcoSumma Healthtart: 34-79-2353AmpocmtnyMercy Health Anderson Hospital CenterStart: 06-12-2021 End: 07-93-6971UublmspbzMercy Health Anderson Hospital CenterStart: 17-18-8746EpcqqkmlsSumma Healthtart: 05-14-2021 End: 95-64-2144XrokprfzkMercy Health Anderson Hospital CenterStart: 06-20-9506BkbhzshixMercy Health Anderson Hospital CenterStart: 46-51-0519NfqqlyxfmMercy Health Anderson Hospital CenterStart: 58-07-3259Ejcywiqh screeningChillicothe HospitalStart: 04-17-2021 End: 25-68-8345JlmvhywqdMercy Health Anderson Hospital CenterStart: 93-75-3316ImzyzxhvnMercy Health Anderson Hospital CenterStart: 23-65-1956IyrvmjlcgMercy Health Anderson Hospital CenterStart: 07-19-4482Dywconwoc for malignant neoplasm of breastMammogram ScreeningSouthview Medical Centertart: 68-13-7354HftgncytrMercy Health Anderson Hospital CenterStart: 01-17-2021 [facility] CenterStart: 99-04-8798VkaomxgpbMercy Health Anderson Hospital CenterStart: 78-16-6747Fcmvdzoxz B surface antibody levelLDL CHOLESTEROL [facility]: 10-30-2020 End: 21-51-7862DekvpnwiiMercy Health Anderson Hospital CenterStart: 56-31-7155HciylgseuMercy Health Anderson Hospital CenterStart: 95-91-7661GpksdrtfqMercy Health Anderson Hospital CenterStart: 18-32-1376BcfpcgdsuMercy Health Anderson Hospital CenterStart: 32-70-5792DuqphazrtMercy Health Anderson Hospital CenterStart: 08-27-2020 End: 53-89-4163SmnumnfwqMercy Health Anderson Hospital CenterStart: 70-29-6461EmzoilmpoMercy Health Anderson Hospital CenterStart: 82-87-8911XiqxfjidpMercy Health Anderson Hospital CenterStart: 91-52-0982YohbbxvvrMercy Health Anderson Hospital CenterStart: 33-58-3760UamfibyvmMercy Health Anderson Hospital CenterStart: 07-17-2020 End: 37-31-0333YoxifjtaiMercy Health Anderson Hospital CenterStart: 98-67-3439KqxqjhzbhMercy Health Anderson Hospital CenterStart: 90-92-6495QqekggdnyMercy Health [facility] Hospital CenterStart: 25-57-1175VoacitktiMercy Health Anderson Hospital CenterStart: 86-65-6921GajdfmujlMercy Health Anderson Hospital CenterStart: 94-95-1331IyorhhrbvMercy Health Anderson Hospital CenterStart: 51-74-1781DtstewhdvMercy Health Anderson Hospital CenterStart: 86-80-1283IcodzrgqlMercy Health [facility] Hospital CenterStart: 24-20-6038MdqfhnzmrMercy Health [facility] Hospital CenterStart: 27-14-6174KhxnsvjxjMercy Health Anderson Hospital CenterStart: 78-65-4666ClfeurqeyMercy Health Anderson Hospital CenterStart: 22-05-9556UzbcosevaMercy Health Anderson Hospital CenterStart: 81-04-6359PatnholzlMercy Health Anderson Hospital CenterStart: 71-07-9352RkzqzabwlMercy Health Anderson Hospital CenterStart: 82-88-3910MhrafqefmMercy Health Anderson Hospital CenterStart: 94-47-3923BxwatroqpMer[facility] Health [facility] Hospital CenterStart: 09-44-3868RylzrhckmMercy Health Anderson Hospital CenterStart: 04-24-2020 End: 35-98-1747EebmtcmjhMercy Health [facility] Hospital CenterStart: 95-92-4586GceyoxdgmMercy Health Anderson Hospital CenterStart: 04-11-2020 End: 98-11-3688HvgyglzjxMercy Health Anderson Hospital CenterStart: 04-10-2020 End: 30-68-1666DhbpphtsdMercy Health Anderson Hospital CenterStart: 93-27-7350CembnsvdfSumma Healthtart: 30-31-0004TdsltjqumSumma Healthtart: 54-35-0671CzqinbsxySumma Healthtart: 82-23-1556Rmbrkxelb for malignant neoplasm of colonSouthview Medical Centertart: 04-68-7048INHZEWVNE B (1 of 3 - Risk 3-dose series)HEPATITIS B (1 of 3 - Risk 3-dose series)[facility] Start: 47-91-0031Lgsrgelfb B Vaccine (1 of 3 - Risk 3-dose series)Hepatitis B Vaccine (1 of 3 - Risk 3-dose series)[facility]: 64-51-8958Cuzmqxext B Vaccines (1 of 3 - Risk 3-dose series)Hepatitis B Vaccines (1 of 3 - Risk 3- dose series)[facility]: 56-50-0685HZD High Risk: (Elderly (60+) or Population) (1 - Risk 60-74 years 1-dose series)RSV High Risk: (Elderly (60+) or Population) (1 - Risk 60-74 years 1-dose series)[facility]: 13-85-9994ABU patients and/or patients aged 60+ years (1 - 1-dose 60+ series)RSV patients and/or patients aged 60+ years (1 - 1-dose 60+ series)[facility]: 38-64-3888ZLK Vaccine (1 - 1-dose 60+ series)RSV Vaccine (1 - 1- dose 60+ series)[facility]: 93-74-4396TDY Vaccine (1 - Risk 60-74 years 1-dose series)RSV Vaccine (1 - Risk 60-74 years 1-dose series)[facility]: 43-92-2262SitivukhalHolzer Health System: 08-21-2011 ColonoscopyCOLONOSCOPYSouthview Medical Centertart: 68-49-6480OKKZDXXXBB CANCER SCREENINGCOLORECTAL CANCER SCREENINGSouthview Medical Centertart: 10-01-2008Medicare Annual Wellness VisitMedicare Annual Wellness VisitSouthview Medical Centertart: 60-74-8312Zlmxbdobj vaccinationLUNG CANCER SCREENINGSouthview Medical Centertart: 96-65-7297VMKVIQOEQ (FIT-DNA)COLOGUARD (FIT-DNA)[facility]: 70-18-7447BL COLONOGRAPHYCT COLONOGRAPHYSouthview Medical Centertart: 18-11-5257XNNWN OCCULT BLOODFECAL OCCULT BLOODSouthview Medical Centertart: 22-58-5686Rbsajbmtq for malignant neoplasm of colonSouthview Medical Centertart: 91-48-1922OYRGXWWVIKPJU SIGMOIDOSCOPYSouthview Medical Centertart: 00-78-8634NbxsppdnglxFTPOYYQMGBvjxoqoge ClinicStart: 74-87-9064LImB/Tdap/Td Vaccines (1 - Tdap)DTaP/Tdap/Td Vaccines (1 - Tdap)[facility]: 14-29-0230OyrhoenuieHolzer Health System: 41-35-0036Qthcxwtwc for malignant neoplasm of cervixPeoples Hospital: 19-97-8625Niutywbif A Vaccine (1 of 2 - Risk 2-dose series)Hepatitis A Vaccine (1 of 2 - Risk 2-dose series)[facility]: 03-27-4938Vguyfzhiw A Vaccines (1 of 2 - Risk 2-dose series)Hepatitis A Vaccines (1 of 2 - Risk 2-dose series)[facility]: 1976 SHINGRIX VACCINE (1 of 2)SHINGRIX VACCINE (1 of 2)[facility]: 59-68-8106Vhrie microalbumin profileSouthview Medical Centertart: 60-41-7518Fkrfo screening for proteinUnHolzer Health System: 76-19-3647Doooll Vaccines (1 of 2)Zoster Vaccines (1 of 2)[facility]: 41-53-6571QopttymncsPe[facility] Hospital: 76-48-1396YVUKDP PCP TEAM CHRONIC DISEASE VISITANNUAL PCP TEAM CHRONIC DISEASE VISITSouthview Medical Centertart: 19-30-6518Smcbgmo ScreeningAnxiety ScreeningSouthview Medical Centertart: 1975 Depression ScreeningDepression ScreeningSouthview Medical Centertart: 1975 Hepatitis C screeningPeoples Hospital: 1975 SPIROMETRYSPIROMETRYSouthview Medical Centertart: comp foot exam completed DIABETIC FOOT EXAMSouthview Medical Centertart: 50-08-3179Mbpunpci foot examination [facility]: 17-67-4333Onuwyehj screeningDilated Retinal ExamCleTwin City Hospitaltart: 92-32-4591Cozkpudml B screeningURINE ALBUMIN:CREATININE RATIOSouthview Medical Centertart: 25-31-4933Fduhoeshj C antibody, confirmatory testDILATED RETINAL EXAMSouthview Medical Centertart: 1964 DTaP/Tdap/Td Vaccines (1 - Tdap)DTaP/Tdap/Td Vaccines (1 - Tdap)[facility] Start: 40-07-4551KLNITOUKHXJW: 65+ (1 - PCV)PNEUMOCOCCAL: 65+ (1 - PCV)[facility]: 00-82-3091KMMXN-19 Vaccine (#1)COVID-19 Vaccine (#1)[facility]: 10-70-3821Plqezpgilu A1c/Hemoglobin.total in Blood KNM7DDubkqkourSouthview Medical Centertart: 79-47-9002LHVFYOPPP A (1 of 2 - Risk 2-dose series) HEPATITIS A (1 of 2 - Risk 2-dose series)[facility] 00-12-8014YLM Vaccines (1 of 1 - Standard series)MMR Vaccines (1 of 1 - Standard series) [facility]: 46-02-0617Cuaapm wellness visit [facility]: 35-62-0924Xlvgu panelPeoples Hospital: 1957Medicare Annual Wellness VisitMedicare Annual Wellness Visit (AWV)[facility]: 1955 Screening for malignant neoplasm of [facility]AF tumor markerAFP tumor marker Lab Routine 07/12/2025 8:06 AM [facility] Work Phone: Albumin/Globulin ratioChildren'S Hospital For RehabilitationAlbumin/Globulin ratioChildren'S Hospital For Rehabilitation Vgghk-1-hvcilswywyf.tumor marker [Mass/volume] in Serum or [facility] WestAlpha-1-fetoprotein.tumor marker [Mass/volume] in Serum or [facility] WestAlpha-1-fetoprotein.tumor marker [Mass/volume] in Serum or [facility] Ladif-5-xafnctgdlcg.tumor marker [Mass/volume] in Serum or PlasmaChildren'S Hospital For RehabilitationAnion gap measurementChildren'S Hospital For Rehabilitation Anion gap measurementChildren'S Hospital For RehabilitationBacteria identified in Blood by CultureChillicothe Hospital Work Phone: bacteria identified in Blood by [facility] HospitalBacteria identified in Blood by [facility] HospitalBacteria identified in Unspecified specimen by Aerobe culture [facility] For RehabilitationBasophils [#/volume] in Blood by Automated [facility] CenterBasophils [#/volume] in Blood by Automated [facility] CenterBasophils [#/volume] in Blood by Automated [facility] CenterBasophils [#/volume] in Blood by Automated [facility] CenterBasophils/100 leukocytes in Blood by Automated [facility] CenterBasophils/100 leukocytes in Blood by Automated [facility] Basophils/100 leukocytes in Blood by Automated [facility] CenterBasophils/100 leukocytes in Blood by Automated [facility] CenterBlood type and Indirect antibody screen panel - BloodType And Screen Lab Timed Every 72 hours (Lab) until discontinued starting 11/18/2023, 2 [facility] Work Phone: Comment on above:Every 72 hours (Lab) until discontinued starting 11/18/2023, 2 completed End: 09-04-2023 reactive protein [Mass/volume] in Serum or PlasmaChillicothe Hospital Work Phone: c reactive protein [Mass/volume] in Serum or PlasmaC- reactive protein Lab Routine Morning draw (Lab) until discontinued starting 11/20/2023, 6 [facility] Work Phone: Comment on above:Morning draw (Lab) until discontinued starting 11/20/2023, 6 completedCalculated LDL cholesterol levelChildren'S Hospital For Rehabilitation End: 73-32-4723SIB W Auto Differential panel - [facility] Work Phone: End: 38-50-2468GPI W Auto Differential panel - BloodChillicothe Hospital Work Phone: End: 87-37-8478BNS W Auto Differential panel - BloodCBC and Auto Differential Lab Routine Multiple myeloma not having achieved remission (CMS/HCC) Every visit for 99 Occurrences starting 11/17/2023 until 11/17/2024, 1 [facility] Work Phone: comment on above:Every visit for 99 Occurrences starting 11/17/2023 until 11/17/2024, 1 completedCBC W Auto Differential panel - BloodCBC and Auto Differential Lab Routine Morning draw (Lab) until discontinued starting 11/19/2023, 7 [facility] Work Phone: Comment on above:Morning draw (Lab) until discontinued starting 11/19/2023, 7 completedCBC W Auto Differential panel - BloodCBC auto differential Lab Routine 10/04/2024 10:15 AM [facility] W-21 Work Phone: CBD W Auto Differential panel - BloodCBC auto differential Lab STAT 10/27/2024 8:40 AM [facility] W-21 Work Phone: CBC W Auto Differential panel - BloodCBC auto differential Lab STAT 11/16/2024 9:50 AM [facility] Healthcare Work Phone: CBC W Auto Differential panel - BloodCBC auto differential Lab STAT 12/07/2024 10:10 AM [facility] Work Phone: CBC W Auto Differential panel - BloodCBC auto differential Lab STAT 12/29/2024 9:45 AM [facility] Work Phone: CBC W Auto Differential panel - BloodCBC auto differential Lab Routine 01/03/2025 8:18 AM EST[facility] Healthcare Work Phone: CBC W Auto Differential panel - BloodCBC auto differential Lab STAT 02/15/2025 11:05 AM [facility] Work Phone: CBC W Auto Differential panel - BloodCBC auto differential Lab Routine 03/07/2025 8:15 AM [facility] [place] Work Phone: CBC W Auto Differential panel - BloodCBC auto differential Lab STAT 03/28/2025 8:53 AM [facility] Healthcare Work Phone: [phone] W Auto Differential panel - BloodCBC auto differential Lab STAT 04/17/2025 9:46 AM EDTNOAR Healthcare Work Phone: [phone] W Auto Differential panel - BloodCBC auto differential Lab STAT 05/17/2025 10:04 AM EDTNOAR Healthcare Work Phone: [phone] W Auto Differential panel - BloodCBC auto differential Lab STAT 05/30/2025 9:15 AM EDTNOAR Healthcare Work Phone: [phone] W Auto Differential panel - BloodCBC auto differential Lab STAT 06/07/2025 10:13 AM EDTNOAR Healthcare Work Phone: [phone] W Auto Differential panel - BloodCBC auto differential Lab Routine 06/20/2025 8:15 AM EDTNOAR Healthcare Work Phone: [phone] W Auto Differential panel - BloodCBC auto differential Lab STAT 07/05/2025 10:07 AM EDTNOAR Healthcare Work Phone: [phone] W Auto Differential panel - BloodCBC auto differential Lab STAT 07/12/2025 8:06 AM EDTNOAR Healthcare Work Phone: [phone] W Auto Differential panel - BloodCBC auto differential Lab STAT 07/19/2025 9:45 AM EDTNOAR Healthcare Work Phone: [phone] W Auto Differential panel - BloodCBC auto differential Lab Routine 08/02/2025 10:00 AM EDTNOAR Healthcare Work Phone: [phone] W Auto Differential panel - BloodCBC auto differential Lab STAT 08/09/2025 8:25 AM EDTNOAR Healthcare Work Phone: [phone] W Auto Differential panel - BloodCBC auto differential Lab STAT 08/16/2025 8:14 AM EDTNOMS [facility] Work Phone: [phone] [Mass/volume] in Serum or Plasma [facility] For RehabilitationCeruloplasmin [Mass/volume] in Serum or Plasma [facility] RehabilitationCholesterol.total/Cholesterol in HDL [Mass Ratio] in Serum or [facility] WestComprehensive metabolic 1999 panel - Serum or [facility] Work Phone: Comprehenve metabolic 1999 panel - Serum or Plasma [facility] RehabilitationComprehensive metabolic 1999 panel - Serum or [facility] WestComprehensive metabolic 1999 panel - Serum or [facility] WestComprehensive metabolic 1999 panel - Serum or [facility] WestComprehensive metabolic 1999 panel - Serum or [facility] WestComprehensive metabolic 1999 panel - Serum or [facility] Comprehensive metabolic 1999 panel - Serum or [facility] WestComprehensive metabolic 1999 panel - Serum or [facility] WestComprehensive metabolic 1999 panel - Serum or [facility] - WestComprehenve metabolic 1999 panel - Serum or Plasma [facility] End: 86-28-2434Iqestixjvbajc metabolic 1999 panel - Serum or PlasmaChillicothe Hospital Work Phone: End: 93-77-0472Mdnrwselddmhb metabolic 1999 panel - Serum or PlasmaComprehensive Metabolic Panel Lab Routine Multiple myeloma not having achieved remission (CMS/HCC) Every visit for 99 Occurrences starting 11/17/2023 until 11/17/2024, 1 [facility] Work Phone: Comment on above:Every visit for 99 Occurrences starting 11/17/2023 until 11/17/2024, 1 completedComprehensive metabolic 1999 panel - Serum or [facility] WestComprehensive metabolic 1999 panel - Serum or [facility] WestComprehensive metabolic 1999 panel - Serum or [facility] Comprehensive metabolic 1999 panel - Serum or [facility] WestComprehensive metabolic 1999 panel - Serum or PlasmaComprehensive metabolic panel Lab STAT 12/29/2024 9:[address] [facility] Work Phone: Comprehenve metabolic 1999 panel - Serum or Plasma [facility] RehabilitationComprehensive metabolic 1999 panel - Serum or PlasmaChildren'S Hospital For RehabilitationComprehensive metabolic 1999 panel - Serum or PlasmaChildren'S Hospital For RehabilitationComprehensive metabolic 1999 panel - Serum or [facility] WestComprehensive metabolic 1999 panel - Serum or [facility] WestComprehensive metabolic 1999 panel - Serum or [facility] Comprehensive metabolic 1999 panel - Serum or PlasmaChildren'S Hospital For RehabilitationComprehensive metabolic 1999 panel - Serum or PlasmaChildren'S Hospital For RehabilitationComprehensive metabolic 1999 panel - Serum or PlasmaChildren'S Hospital For RehabilitationComprehensive metabolic 1999 panel - Serum or Plasma Comprehensive metabolic panel Lab Routine 08/02/2025 10:00 AM [facility] Work Phone: Comprehensive metabolic 1999 panel - Serum or Plasma [facility] For RehabilitationComprehenecu health [facility] metabolic 1999 panel - Serum or PlasmaChildren'S Hospital For RehabilitationComputed tomography for radiotherapy planningMarietta Osteopathic Clinic Work Phone: Computed tomography for radiotherapy [facility] End: 28-12-2381Bwvjmrx to Interventional RadiologyLEA REGIONAL [facility] Service Area Work Phone: Comment on above:Once for 1 Occurrences starting 11/29/2024 until 5[facility] CampusCreatinine [Mass/volume] in Serum or PlasmaCreatinine Lab STAT 01/30/2025 10:23 AM [facility] Work Phone: CT Chest W contrast [facility] End: 33-51-9722OY Guidance for ablation of tissue [facility] Area Work Phone: comment on above:Once for 1 Occurrences starting 01/05/2025 until 5CT Sinuses WO contrastChildren'S Hospital For RehabilitationCT Sinuses WO contrastChildren'S Hospital For RehabilitationECG COMPLETE [facility] Work Phone: Comment on above:Ordered: 07/18/2024 End: 27-48-8491UaxyvodlfpqihfmlZDVC Cardiology Routine Nonrheumatic aortic valve stenosis Aneurysm of ascending aorta without rupture (HCC) 1 Occurrences starting 07/18/2024 until 5C[facility] ClinicComment on above:1 Occurrences starting 07/18/2024 until 07/18/2025Electrocardiogram, 12-lead PRN [facility] Work Phone: Electrocardiogram, 12-lead PRN ACS symptoms Electrocardiogram, 12-lead PRN ACS symptoms ECG Routine As needed until discontinued starting 11/18/2023[facility] Work Phone: comment on above:As needed until discontinued starting 11/18/2023Eosinophils/100 leukocytes in Blood by Automated [facility] CenterEosinophils/100 leukocytes in Blood by Automated count [facility] For RehabilitationEosinophils/100 leukocytes in Blood by Automated [facility] CenterEosinophils/100 leukocytes in Blood by Automated [facility] CenterErythrocyte distribution width [Ratio] by Automated [facility] Erythrocyte distribution width [Ratio] by Automated [facility] CenterErythrocyte distribution width [Ratio] by Automated [facility] CenterErythrocytes [#/volume] in [facility] HospitalErythrocytes [#/volume] in [facility] Erythrocytes [#/volume] in [facility] End: 41-25-4172Xhhbp Urine [facility]ubeUnTr[facility] Work Phone: End: 98-14-8048Qweoiebq [Mass/volume] in Serum or PlasmaW[facility]ckoff Heights [facility] Work Phone: Ferritin [Mass/volume] in Serum or PlasmaFerritin Lab Routine Morning draw (Lab) until discontinued starting 11/20/2023, 6 completed [facility] Work Phone: Comment on above:Morning draw (Lab) until discontinued starting 11/20/2023, 6 completed End: 10-12-3108Pqiijaexsp [Mass/volume] in Platelet poor plasma by Coagulation assayChillicothe Hospital Work Phone: Fibrinogen [Mass/volume] in Platelet poor plasma by Coagulation assayFibrinogen Lab Routine Morning draw (Lab) until discontinued starting 11/20/2023, 6 [facility] Work Phone: Comment on above:Morning draw (Lab) until discontinued starting 11/20/2023, 6 completedFREE K+L LT CHAINS, QN, SFREE K+L LT CHAINS, QN, S Lab Routine 06/07/2025 10:13 AM [facility] [place] Work Phone: Globulin [Mass/volume] in [facility] HospitalGl[facility] [Mass/volume] in [facility] Glomerular filtration rate [Volume Rate/Area] in Serum, Plasma or Blood by [facility] HealthGlomerular filtration rate [Volume Rate/Area] in Serum, Plasma or Blood by [facility] End: 94-44-0375Qkmoukb [Mass/volume] in Serum or PlasmaChillicothe Hospital Work Phone: End: 14-20-4111Cgfqhkn [Mass/volume] in Serum or PlasmaChillicothe Hospital Work Phone: Glucose [Mass/volume] in Serum or PlasmaPOCT Glucose Point of Care Testing - Docked Device Routine As needed (Lab) until discontinued starting 11/18/2023[facility] Work Phone: Comment on above:As needed (Lab) until discontinued starting 11/18/2023Hematocrit [Volume Fraction] of [facility] HospitalHematocrit [Volume Fraction] of [facility] HospitalHematocrit [Volume Fraction] of [facility] Hemoglobin [Mass/volume] in [facility] HospitalHemoglobin [Mass/volume] in [facility] HospitalHemoglobin [Mass/volume] in [facility] End: 72-13-4536Uejcwwv function 2000 panel - Serum or PlasmaChillicothe Hospital Work Phone: Homocysteine [Moles/volume] in Serum or Plasma [facility] Hospital For RehabilitationIgA [Mass/volume] in Serum or [facility] WestIgA [Mass/volume] in Serum or [facility] WestIgG [Mass/volume] in Serum or [facility] WestIgG [Mass/volume] in Serum or [facility] WestIgM [Mass/volume] in Serum or [facility] WestIgM [Mass/volume] in Serum or [facility] End: 27-61-2206Jnocejcgsljeyn light chains.free panel - SerumKappa/Lambda Free Light Chain, Serum Lab Routine Multiple myeloma not having achieved remission (CMS/HCC) Monthly for 99 Occurrences starting 11/17/2023 until 11/17/2024 [facility] Work Phone: Comment on above:Monthly for 99 Occurrences starting 11/17/2023 until 11/17/2024Immunoglobulin light chains.free panel - Serum [place]/Lambda Free Light Chain, Serum Lab Routine Multiple myeloma not having achieved remission (CMS/HCC) 11/17/2023 9:51 AM [facility] Work Phone: End: 92-46-3235Mggnbusnyijxlbc (IgG, IgA, IgM)Immunoglobulins (IgG, IgA, IgM) Lab Routine Multiple myeloma not having achieved remission (CMS/HCC) Monthly for 99 Occurrences starting 11/17/2023 until 11/17/2024, 1 [facility] Work Phone: Comment on above:Monthly for 99 Occurrences starting 11/17/2023 until 11/17/2024, 1 completedINR in Platelet poor plasma by Coagulation assayChildren'S Hospital For RehabilitationIron and Iron binding capacity panel - Serum [...] HealthcareIron binding capacity [Mass/volume] in Serum or [facility] WestIron binding capacity [Mass/volume] in Serum or [facility] WestIron saturation [Mass Fraction] in Serum or [facility] Iron saturation [Mass Fraction] in Serum or [facility] - WestKappa light chains.free [Mass/volume] in SerumChildren'S Hospital For RehabilitationKappa light chains.free/Lambda light chains.free [Mass Ratio] in Serum [facility] End: 12-67-1356Xxiqthq dehydrogenase [Enzymatic activity/volume] in Serum or Plasma by Lactate to pyruvate reactionChillicothe Hospital Work Phone: End: 37-65-2192Jaaalps dehydrogenase [Enzymatic activity/volume] in Serum or Plasma by Lactate to pyruvate reactionLactate dehydrogenase Lab Routine Multiple myeloma not having achieved remission (CMS/HCC) Monthly for 99 Occurrences starting 11/17/2023 until 11/17/2024, 1 [facility] Work Phone: Comment on above:Monthly for 99 Occurrences starting 11/17/2023 until 11/17/2024, 1 completed End: 68-68-8808Zxvsnsg dehydrogenase [Enzymatic activity/volume] in Serum or Plasma by Lactate to pyruvate reactionLactate Dehydrogenase Lab Routine Morning draw (Lab) for 99 Days starting 11/19/2023 until 02/25/2024, 7 completed [facility] Work Phone: Comment on above:Morning draw (Lab) for 99 Days starting 11/19/2023 until 02/25/2024, 7 completedLambda light chains.free [Mass/volume] in Serum or [facility] WestLeukocytes [#/volume] corrected for nucleated erythrocytes in Blood by Automated [facility] HospitalLeukocytes [#/volume] corrected for nucleated erythrocytes in Blood by Automated [facility] Leukocytes [#/volume] corrected for nucleated erythrocytes in Blood by Automated [facility] AdministrationLeukocytes [#/volume] in [facility] HospitalLeukocytes [#/volume] in [facility] HospitalLeukocytes [#/volume] in [facility] HospitalLymphocytes [#/volume] in Blood by Automated [facility] Lymphocytes [#/volume] in Blood by Automated [facility] CenterLymphocytes [#/volume] in Blood by Automated [facility] CenterLymphocytes [#/volume] in Blood by Automated [facility] CenterLymphocytes/100 leukocytes in Blood by Automated count [facility] Hospital For RehabilitationLymphocytes/100 leukocytes in Blood by Automated countChildren'S Hospital For RehabilitationLymphocytes/100 leukocytes in Blood by Automated [facility] CenterLymphocytes/100 leukocytes in Blood by Automated [facility] End: 65-24-5135Imfcjqash [Mass/volume] in Serum or PlasmaChillicothe Hospital Work Phone: End: 45-93-3934Sutqxaqng [Mass/volume] in Serum or PlasmaChillicothe Hospital Work Phone: Magnesium [Mass/volume] in Serum or PlasmaMagnesium Lab Routine Morning draw (Lab) until discontinued starting 11/19/2023, 7 [facility] Work Phone: Comment on above:Morning draw (Lab) until discontinued starting 11/19/2023, 7 completedMagnesium [Mass/volume] in Serum or Plasma Magnesium Lab STAT 12/29/2024 11:[address] [facility] Work Phone: MCH [Entitic mass] by Automated [facility] CenterMCH [Entitic mass] by Automated [facility] CenterMCH [Entitic mass] by Automated [facility] CenterMCHC [Mass/volume] by Automated [facility] CenterMCHC [Mass/volume] by Automated [facility] CenterMCHC [Mass/volume] by Automated [facility] CenterMCV [Entitic volume] by Automated [facility] CenterMCV [Entitic volume] by Automated [facility] CenterMCV [Entitic volume] by Automated [facility] CenterMethylmalonate [Moles/volume] in Serum or PlasmaChildren'S Hospital For RehabilitationMicroalbumin/Creatinine [Mass Ratio] in UrineChildren'S Hospital For RehabilitationMonocytes [#/volume] in Blood by Automated countChildren'S Hospital For RehabilitationMonocytes [#/volume] in Blood by Automated countChildren'S Hospital For RehabilitationMonocytes [#/volume] in Blood by Automated countChildren'S Hospital For RehabilitationMonocytes [#/volume] in Blood by Automated countChildren'S Hospital For RehabilitationMonocytes/100 leukocytes in Blood by Automated countChildren'S Hospital For Rehabilitation Monocytes/100 leukocytes in Blood by Automated countChildren'S Hospital For RehabilitationMonocytes/100 leukocytes in Blood by Automated countChildren'S Hospital For RehabilitationMonocytes/100 leukocytes in Blood by Automated [facility] CenterMR Abdomen WO and W contrast [facility] HospitalMR Abdomen WO and W contrast [facility] Neutrophils [#/volume] in Blood by Automated [facility] CenterNeutrophils [#/volume] in Blood by Automated countChildren'S Hospital For RehabilitationNeutrophils [#/volume] in Blood by Automated countChildren'S Hospital For RehabilitationNeutrophils [#/volume] in Blood by Automated count [facility] For RehabilitationNeutrophils/100 leukocytes in Blood by Automated countChildren'S Hospital For RehabilitationNeutrophils/100 leukocytes in Blood by Automated countChildren'S Hospital For RehabilitationNeutrophils/100 leukocytes in Blood by Automated countChildren'S Hospital For Rehabilitation Neutrophils/100 leukocytes in Blood by Automated [facility] CenterNucleated erythrocytes [Presence] in Blood by Automated [facility] CenterNucleated erythrocytes [Presence] in Blood by Automated countChildren'S Hospital For RehabilitationNucleated erythrocytes [Presence] in Blood by Automated [facility] CenterNucleated erythrocytes [Presence] in Blood by Automated [facility] CenterPatient EducationMercy Health Anderson Hospital Ctr Work Phone: Patient referralMercy Health Anderson Hospital Ctr Work Phone: End: 19-58-1353Gmaalrsyg [Mass/volume] in Serum or PlasmaUnTrinity Health System Twin City Medical Center Work Phone: Platelet mean volume [Entitic volume] in Blood by Automated [facility] CenterPlatelet mean volume [Entitic volume] in Blood by Automated [facility] CenterPlatelet mean volume [Entitic volume] in Blood by Automated [facility] CenterPlatelet morphology finding [Identifier] in [facility] HospitalPlatelets [#/volume] in [facility] HospitalPlatelets [#/volume] in [facility] HospitalPlatelets [#/volume] in [facility] End: 63-55-0790Xogrtly electrophoresis panel - Serum or PlasmaSerum Protein Electrophoresis Lab Routine Multiple myeloma not having achieved remission (CMS/HCC) Monthly for 99 Occurrences starting 11/17/2023 until 11/17/2024 [facility] Work Phone: Comment on above:Monthly for 99 Occurrences starting 11/17/2023 until 11/17/2024Protein electrophoresis panel - Serum or PlasmaSerum Protein Electrophoresis Lab Routine Multiple myeloma not having achieved remission (CMS/HCC) 11/17/2023 9:51 AM [facility] Work Phone: Prothrombin time (PT)[facility] PT Whole bodyChildren'S Hospital For Rehabilitation End: 88-72-7024Migda oximetry, continuousPulse oximetry, continuous Respiratory Care STAT Multiple myeloma not having achieved remission (CMS/HCC) Continuous until discontinued starting 11/18/2023[facility] Area Work Phone: comment on above:Continuous until discontinued starting 11/18/2023 End: 25-91-2408Tvkak function 1999 panel - Serum or PlasmaChillicothe Hospital Work Phone: Renal function 1999 panel - Serum or PlasmaRenal Function Panel Lab Routine Morning draw (Lab) until discontinued starting 11/19/2023, 6 [facility] Work Phone: Comment on above:Morning draw (Lab) until discontinued starting 11/19/2023, 6 completedSCAN AND CBCSCAN AND CBC Lab Routine 01/30/2025 10:23 AM [facility] [place] Work Phone: End: 02-40-5796Jsbfr [Mass/volume] in Serum or [facility] Area Work Phone: End: 34-98-6366Opmli [Mass/volume] in Serum or PlasmaUnTrinity Health System Twin City Medical Center Work Phone: End: 55-20-2992Gwyan [Mass/volume] in Serum or PlasmaUric acid Lab Routine Multiple myeloma not having achieved remission (CMS/HCC) Monthly for 99 Occurr ences starting 11/17/2023 until 11/17/2024, 1 [facility] Work Phone: Comment on above:Monthly for 99 Occurrences starting 11/17/2023 until 11/17/2024, 1 completedUrate [Mass/volume] in Serum or Plasma Uric Acid Lab Routine Morning draw (Lab) until discontinued starting 11/19/2023, 7 [facility] Work Phone: Comment on above:Morning draw (Lab) until discontinued starting 11/19/2023, 7 completed End: 81-97-3942Znhroftdwv complete W Reflex Culture panel - UrineChillicothe Hospital Work Phone: End: 25-11-3701GI Guidance for ablation of tissue of LiverW[facility]ckoff Heights [facility] Work Phone: comdaoe on above:Once for 1 Occurrences starting 01/05/2025 until 01/05/2025 End: 30-90-8014US Guidance for biopsy of LiverUS guided needle liver biopsy Imaging Routine Liver cell carcinoma (Multi) Once for 1 Occurrences starting 01/05/2025 until 01/05/2025[facility] Area Work Phone: comszns on above:Once for 1 Occurrences starting 01/05/2025 until 01/05/2025US Heart TransthoracicMercy Health Anderson Hospital Ctr Work Phone: us [facility] HospitalVLDL cholesterol measurementDayton Osteopathic Hospital Ctr Work Phone: [facility] CenterFirelands Regional Medical CenterFirelands Regional Medical CenterFirelands Regional Medical CenterFirelands Regional Medical CenterFirelands Regional [facility] Immunizations Immunization DateImmunizationNotesCare TlxfcochUjybncxb12-37-5583vjnjzgmse, high dose seasonal, preservative-freeYinka Lopez MD Work Phone: [facility] LouisObxbtsioqk76-57-5640QHQ, recombinant, protein subunit RSVpreF, adjuvant reconstitu, 120mcg/0.5mL, PF (Arexvy)Yinka Lopez MD Work Phone: [facility] LouisXtqhqfkxmj03-43-7697dfwlqeqbw virus vaccine, unspecified formulationDahoward Pedersen Work Phone: [facility] LouisCeevcbmeyd45-81-7423jsgavoufx, injectable, quadrivalent, preservative [facility] Work Phone: [phone]cvg virus vaccine, unspecified formulationSMansfield Hospital Work Phone: [phone] 335-443312425162-35-7011qjczbuzfn, injectable, quadrivalent, preservative [facility] Work Phone: [phone]pxwltdkgx polysaccharide vaccine, 23 [facility] Work Phone: [phone]keshj influenza, intradermal, preservative [facility] Work Phone: [phone]v, seasonal, injectableOur Lady of [facility]cy [facility] - [facility] Work Phone: [phone]zdgtlgahr conjugate vaccine, 13 [facility] Work Phone: NEGATED: Highlighted row has not occurred!05-21-2023 Pneumococcal Conjugate PCV 20Amy Warchol [employer] Work Phone: NODB HealthcareComment on above:Deferred: Patient Refused Payers DatePayer CategoryPayerPolicy [id number]-lzm [id number] [id number] 2013Medicaid [id number] 2008Medicare [id number] [id number] [id number] [id number] 2..1.605222.3.579.2.48109-80-5500Ozxacgg6720663 2..1.233401.3.579.2.32903-49-3244Uarafyz068344158 2..1.951724.3.579.2.73218-24-0147Cpztoig257809994 2..1.610153.3.579.2.27298-57-6235Noclvgz975460131 2..1.836916.3.579.2.87023-39-4432Ianmqcu640330307 2.16.840.1.420811.3.579.2.92011-49-0817Klnpmtk732701669 2.16.840.1.362360.3.579.2.49580-13-8795Jnubikf883848933 2.16.840.1.349579.3.579.2.68526-62-5456Blsdqwf351746642 2.16.840.1.887501.3.579.2.196607-53-6823Kqjspdp97152963 2..840.1.892505.3.579.2.767870-81-4648Vawidaq06248749 2.16.840.1.935413.3.579.2.052676-94-9939Gghuyds82372390 2.840.1.883470.3.579.2.679797-27-2573Ejdniaa33754846 2.840.1.586849.3.579.2.970662-74-8221Cyayisk18379315 2.840.1.950254.3.579.2.884139-84-1213Mtrubdw25957632 2.840.1.467076.3.579.2.629962-59-6799Usitrch75988572 2.840.1.240177.3.579.2.261689-38-5020Kvcxvsj52139603 2.840.1.575158.3.579.2.326294-66-6232Zrniyod56366241 2.16.840.1.218750.3.579.2.433696-53-9337Apjabmj09780115 2.840.1.853010.3.579.2.001582-49-1617Zzqfboz60905702 2.840.1.793852.3.579.2.181632-39-1486Bxliirx91731104 2.0.1.264465.3.579.2.307558-13-7554Rarwvgf54201722 2.0.1.379814.3.579.2.403059-19-1298Ukovzac72928635 2.0.1.469117.3.579.2.335919-09-3243Lvvkshd81524564 2.0.1.260605.3.579.2.409172-43-8462Qydabyg89261596 2..1.154435.3.579.2.742723-34-6529Cfacgsc75579431 2..1.043614.3.579.2.528076-01-3364Xqwwcpb45875243 2.0.1.379561.3.579.2.406062-00-7802Bdjhagc17053416 2.0.1.908939.3.579.2.875898-86-3756Ehlwjof61949931 2..1.472543.3.579.2.944873-32-6467Yadhcvv66346057 2.0.1.578344.3.579.2.786417-06-2457Bdjcdpz00175167 2.0.1.402456.3.579.2.251083-15-1350Kjesozz34325962 2.840.1.268989.3.579.2.917266-28-4213Uxayjex58130006 2.840.1.879307.3.579.2.371330-90-9827Hafedai89784776 2.16.840.1.422761.3.579.2.177705-45-4612Jiilnim05101292 2.16.840.1.850751.3.579.2.343471-81-4293Nclrtrg34690377 2.16.840.1.172969.3.579.2.002207-09-6402Umjaret96303117 2.16.840.1.325932.3.579.2.528415-24-8577Msevwiu69674875 2.16.840.1.834561.3.579.2.837637-12-6816Pbugkcm27009511 2.16.840.1.235254.3.579.2.100211-33-8378Zwfemfy56837847 2.0.1.385627.3.579.2.870399-41-3257Fxeylrs79232450 2.16840.1.561992.3.579.2.48468-28-1345Oeisvhu22311303 2.840.1.124882.3.579.2.98529-21-1665Xeblmig47320156 2.840.1.828404.3.579.2.55077-39-7484Dhckrqj09396395 2.840.1.696050.3.579.2.367607-01-3961Tafhwts02809544 2.16840.1.612179.3.579.2.009101-87-6497Letkrpy16521380 2.16840.1.978110.3.579.2.986011-55-8347Hcibmgz39171606 2.16840.1.563869.3.579.2.519969-00-7635Fkhbyyj90383518 2.16.840.1.714824.3.579.2.694979-84-6396Neqdpfa44342303 2.16.840.1.572705.3.579.2.23628-55-0248Gkvfdkj25876095 2.16.840.1.215624.3.579.2.22286-60-6232Yhwbslt41887283 2.16.840.1.335086.3.579.2.516367-02-0872Pznqlbz81876943 2.16.840.1.872055.3.579.2.159943-67-8911Frjykrk61710939 2.16.840.1.559561.3.579.2.761351-04-9243Keatjsi99631562 2.16.840.1.244870.3.579.2.716564-16-6313Rgmccqj8660648 2.16.840.1.081223.3.579.2.134019-90-8244Nuqpcjv1682521 2.16.840.1.271085.3.579.2.241280-55-3129Pammgoe4790522 2.16.840.1.422102.3.579.2.491902-87-0781Prqgrmr2430411 2.16.840.1.119997.3.579.2.337058-41-6193Brddbhe4200731 2.16.840.1.464942.3.579.2.684438-47-2938Qinlmpt1558344 2.16.840.1.984914.3.579.2.322914-36-1128Rtnvjlk0060215 2.16.840.1.252996.3.579.2.5005Ranqrwu46443088 2.16.840.1.888471.3.579.2.531 Acqupyk43415148 2.16.840.1.336788.3.579.2.797Cwfuyvq71991019 2.16.840.1.883519.3.579.2.885Zjhirdi77554271 2.16.840.1.074236.3.579.2.531 Ezffqyh16681241 2.840.1.348220.3.579.2.057Auhdnou52631041 2.840.1.186194.3.579.2.081Bszmsjs21781249 2.840.1.363096.3.579.2.531 Fwfswun44628037 2.840.1.270887.3.579.2.427Rlwrrwp28665652 2.840.1.460585.3.579.2.365Zldmgcc08423065 2.840.1.901815.3.579.2.531 Myvgvhr48683565 2.840.1.993413.3.579.2.173Awblvkg79992922 2.840.1.715290.3.579.2.124Yzckkjw23294531 2.840.1.451407.3.579.2.531 Rvrrbnh61495091 2.840.1.263988.3.579.2.368Decgzgh08138678 2.840.1.659770.3.579.2.094Bmhawgf39333326 2.840.1.346326.3.579.2.531 Fahgnmr01805502 2.840.1.672113.3.579.2.531 Social History DateTypeDetailFacilityStart: 07-10-2022 End: 44-01-5159Hxbnybg smoking status NHISEx-smoker (finding)[facility]: 08-[facility] End: 97-81-9724Svyasgg of tobacco useMarietta Osteopathic Clinic Work Phone: Start: 96-17-3368Gmq Assigned At BirthFemalSCCI Hospital Limatart: 11-02-1974 End: 13-18-6272Juuxyru of tobacco useCurrent smokerSouthview Medical Centertart: 11-02-1976 End: 34-90-9145Oivtkgy of tobacco useCigarette SmokerSouthview Medical Centertart: 06-01-2013 End: 18-81-8619Ozedgxfjfi smoked current (pack per day) - Sgsaifen6Wkyfjvwxo ClinicStart: 06-01-2013 End: 78-57-8297Vnqephu use and exposureSmokeless tobacco non-userSouthview Medical Centertart: 37-94-2484Fphuzya intakeCurrent non-drinker of alcohol (finding) [facility] Centertart: 37-89-7477Dbt Assigned At BirthNot on fileWinburne ClinicStart: 07-22-2023 End: 47-45-3800Qiellzi smoking status NHISNever smoked tobacco (finding) [facility] RehabilitationHow often to you have a drink containing alcohol?NeverUnTrinity Health System [facility] City Medical Center Work Phone: Start: 09-26-2022 End: 06-75-9814Agc many standard drinks containing alcohol do you have on a typical day?[facility] Work Phone: Start: 07-24-2023 End: 37-06-7697Ycjwvmcj to SARS-CoV-2 (event)Not sureUnTrinity Health System Twin City Medical Center Work Phone: History of tobacco usePassive smokerUnTrinity Health System [facility] City Medical Center Work Phone: Start: 09-08-2023 End: 85-78-5701Nrsvzmt intakeEx-drinker (finding)[facility] Work Phone: How hard is it for you to pay for the very basics like food, housing, medical care, and heatingNot very hardUnTrinity Health System Twin City Medical CenterIn the past 12 months, was there a time when you were not able to pay the mortgage or rent on time?[facility] Work Phone: Start: 04-99-4904Nkiokfi use and exposureFormer smokeless tobacco userNOMS HealthcareStart: 05-30-2024 End: 04-17-9922Tfarrvchq beverage intakeLifetime non-drinker (finding)[facility] HealthcareStart: 51-17-3485Ilweyiw Commentcafffeine intake: 1-2 cups per dayNOMS HealthcareStart: 09-14-2024 End: 50-95-1886RydFnrvqd (finding)[facility] Healthexual OrientationExecutive [facility] start: 07-49-9333Mlhpzt orientationHeterosexual (finding)[facility] Medical Equipment Procedure CodeEquipment CodeEquipment Original TextEquipment IdentifierDates [id number]: each [id number]: 05-30-2024 End: 09-07-2024 Goals DatePatient GoalDesired Activity/StatePersonal health goalPersonal health goal Functional Status ShbyAadvlarugjBgjkckPtbxhiuk08-83-4758Niznedbq - suicide severity rating scale screener - recent [C-SSRS][facility] Work Phone: [phone]dw score [AUDIT-C]0 06/15/2025 8:51 AM EDT Negar Carlos LPNNOMS Bnzaxzbocm67-48-2276Zptkerm Health Questionnaire 2 item (PHQ-2) [Reported][facility] LouisWaqtzizdkl85-09-6096Rqjredy Health Questionnaire 2 item (PHQ-2) [Reported][facility] LouisOebhghluzs91-55-9527Ydnww score [AUDIT-C]0 05/15/2025 10:09 AM EDT Negar Carlos MANOMS Ahdfxlmrxk55-16-1993Fsris score [AUDIT-C]0 04/10/2025 9:53 AM EDT Negar Carlos MANOMS Kwroukbzxc15-44-8632 Patient Health Questionnaire 2 item (PHQ-2) [Reported][facility] LouisNbcxwowewe70-76-5442 Patient Health Questionnaire 2 item (PHQ-2) [Reported][facility] LouisVrldxanpsl53-36-0462 Total score [AUDIT-C]0 03/01/2025 1:28 PM EDT Negar Carlos MANOMS [facility] 21-29-0069Uudlwbo Health Questionnaire 2 item (PHQ-2) [Reported][facility] 29-40-5121Vrfqljstgq statusPatient at [facility] Work Phone: [phone] statusPatient at Baseline [facility] Work Phone: [phone] you deaf, or do you have serious difficulty hearingNo 04/27/2019 3:12 PM EDT Edilberto Hernandes [facility]89-7183Lby you blind, or do you have serious difficulty seeing, even when wearing glassesNo 04/27/2019 3:12 PM EDT Edilberto Hernandes RN [facility]06-26-2019Do you have serious difficulty walking or climbing stairsNo 04/27/2019 3:12 PM EDT Edilberto Hernandes RN [facility]06-26-2019Do you have difficulty dressing or bathingNo 04/27/2019 3:12 PM EDT Edilberto Hernandes RN [facility] HospitalLxbfdr93-06-0468Swwrqke of a physical, mental, or emotional condition, do you have difficulty doing errands alone such as visiting a physician's office or shoppingNo 04/27/2019 3:12 PM EDT Edilberto Hernandes RN [facility] Mental Status SxdfDgxubbnnrmZprmhpSfewbfsy46-31-3026Prvwwrxmv functionPatient at Baseline [facility] Work Phone: [phone]a functionPatient at Baseline [facility] Work Phone: [phone] of a physical, mental, or emotional condition, do you have serious difficulty concentrating, remembering, or making decisionsNo 04/27/2019 3:12 PM EDT Edilberto Hernandes RN [facility] Clinical Notes 11-24-2017 to 08-28-2025 Note Date & OlyaKymnJikqlffc64-39-6024 Telephone encounter Note* Telephone Encounter - Yeni Pedersen - 08/28/2025 2:55 PM EDT Patient called office Patient brianda [facility]Nmwdrqfcmf59-17-3164 Miscellaneous Notes* Telephone Encounter - Yeni Pedersen - 08/28/2025 2:55 PM EDT Patient called office Patient brianda documented in this encounterMer[facility] Hospital St. LouisIpmpntgzii08-37-1893 Telephone encounter Note* Telephone Encounter - Yeni Pedersen - 08/28/2025 10:05 AM EDT Returned call to patient... patient indicated Medication from ER visit was DUONEB - did help her with breathing would like prescription if possible called in to [facility] pharmacy. [facility] LouisWtevsgqsod[facility]1947 Miscellaneous Notes* Telephone Encounter - Yeni Pedersen - 08/28/2025 10:05 AM EDT Returned call to patient... patient indicated Medication from ER visit was DUONEB - did help her with breathing would like prescription if possible called in to [facility] pharmacy. * Telephone Encounter - Emely Pedersen DO - 08/28/2025 10:03 AM EDT Okay Yeni is calling her back to tell her we are looking into it and to see what meds they put her on. Can you call [facility] and have them fax over the ER report KEVON if possible please * Telephone Encounter - Yeni Pedersen - 08/28/2025 8:16 AM EDT Went to [facility] last nite. They gave some medication that helped with breathing. Patient states still having breathing problems and trouble today Would like more medications for breathing. documented in this encounterMer[facility] Hospital St. LouisScnhpcibtu93-92-0417 Telephone encounter Note* Telephone Encounter - Emely Pedersen DO - 08/28/2025 10:03 AM EDT Okjaniya Jaime is calling her back to tell her we are looking into it and to see what meds they put her on. Can you call [place] and have them fax over the ER report KEVON if possible please [facility] LouisEonmtntyfw97-54-7042 Telephone encounter Note* Telephone Encounter - Yeni Pedersen - 08/28/2025 8:16 AM EDT Went to [facility] last nite. They gave some medication that helped with breathing. Patient states still having breathing problems and trouble today Would like more medications for breathing. [facility] LouisLdinvesbgv21-16-9746 Telephone encounter Note* Telephone Encounter - Yeni Pedersen - 08/24/2025 8:36 AM EDT Patient called in a had some questions about visit she was seen for in office this week... with results from lab and whether it is contagious.. patient would like a call to discuss at your earliest convenience. T [facility] LouisNogjbzrneb31-26-6641 Miscellaneous Notes* Telephone Encounter - Yeni Pedersen - 08/24/2025 8:36 AM EDT Patient called in a had some questions about visit she was seen for in office this week... with results from lab and whether it is contagious.. patient would like a call to discuss at your earliest convenience. documented in this encounterMercy Hospital St. LouisVgjzayrpxe78-28-0554 History of Present illness Narrative* Emely Pedersen, [...] 1 tablet (40 mg) by mouth Daily SNZSCOJ-WBONEZQXOSN-TKTFQBDTAH (BREZTRI AEROSPHERE) 160-9-4.8 MCG/ACT AEROSOL Inhale 2 [...] Hives, Rash and Unknown documented in this encounterMercy Hospital St. LouisLjulfrassa36-37-8333 NoteHNO ID: [id number] Author: EVER SALEH MA Service: ? Author Type: City Plant Supervisor Type: Progress Notes Filed: 08/17/2025 16:38 Note Text: Weaving Teacher present: Ever Baltazar, [facility]10-16-2025 Note HNO ID: [id number] Author: JUAN J MENDEZ MD Service: ? Author Type: Physician Type: Progress Notes Filed: 08/17/2025 16:38 Note Text: SUBJECTIVE: Mojgan Pérez is a 69 year old female. Patient presents with: Cardiology Follow Up Mojgan Pérez was referred by Self HPI: The patient is a pleasant, 69-year-old female, who underwent extensive evaluation at the [facility], April 2019, after presenting with chest [...] Yes, Claudication:No CONDITIONS: Hypertension: Yes, Heart failure:No, [place] [employer] Functional Classification: Class II, Atrial [...] file Gets together: Not on file Attends tenriism service: Not on file Active member of club or organization: Not on file Attends meetings of clubs or organizations: Not on file Relationship status: Not on file Intimate partner violence: Fear of current or ex partner: Not on file Emotionally abused: Not on file Physically abused: Not on file Forced sexu (more content not included)...[facility]09-02-2025 NotePatient Education Custom Cystoscopy ??? Voiding after [...] if you have a fever over 100 degrees.[facility] 07-04-2025 NoteHistory and Physical Patient: MOJGAN PÉREZ Age: 69 years Sex: Female : 1955 Associated Diagnoses: None Author: MIGUEL ANGEL JASSO, Marlon Rangel Preoperative Information Indication for surgery: Gross hematuria, [...] list: All Problems Anemia / SNOMED CT 296327436 / Confirmed Multiple myeloma / SNOMED CT 013565432 / Confirmed Chronic obstructive pulmonary disease / SNOMED CT 84988292 / Confirmed Depression / SNOMED CT 22832381 / Confirmed Diabetes / SNOMED CT 006600296 / Confirmed Headache / SNOMED CT 52178372 / Confirmed Hypertension / SNOMED CT 6434745721 / Confirmed Hyperlipidemia / SNOMED CT 41205903 / Confirmed Disease of liver / SNOMED CT 421518111 / Confirmed History of kidney stones / SNOMED CT 0037034967 / Confirmed Gross hematuria / SNOMED CT 858153065 / Confirmed Histories Family History: Asthma Sister Hypertension Father Mother Congenital heart disease Mother Mitral valve disorder Brother Arthritis Father Mother Sister Alcoholism Father Hyperlipidemia Sister Cancer Father Mother Brother Sister Procedure history: Colonoscopy (461407015) on 05/01/2015 at 59 Years. Appendectomy (131969392). Tubal ligation (560611746). Cholecystectomy (27761454). Hemorrhoidectomy (61795981). Abdominal hysterectomy (330867993). Carpal tunnel release (736249976). Repair of single tendon (772623785). History of hernia repair (0612367519). Arthroscopic knee procedure (1134293662). Comments: 12/25/2020 10:45 [address]qu[address] Arthroscopy of knee (262618421). Comments: 12/25/2020 10:46 Jacquelyn Gregory Rt. History of operative procedure on elbow (3672139994). Procedure on wrist (470825756). Social History Social & Psychosocial Habits Alcohol [...] stones. Musculoskeletal Normal strength. Integumentary: Warm, Dry, [place]. Neurologic: Alert, Oriented. Psychiatric: Cooperative, Appropriate mood & affect. Impression and Plan Diagnosis Gross hematuria (SKK89-XC R31.0, Working, Medical). Personal history of kidney stones (KQF60-XJ Z87.442, Working, Medical). Condition: Stable. Counseled: Patient, Regarding diagnosis, Regarding treatment.[facility] HospitalComment on above:Result Comment: Electronically Signed By: MIGUEL ANGEL JASSO, Marlon Gil\Date and Time Signed: 07/04/25 07:58 JEE05-24-5415 Evaluation note* Pre-Procedure Note - Morro Calderon MD - 06/22/2025 7:30 AM EDT Interventional [...] been discussed with the patient and/or their policy services representative. All questions answered and they agree to proceed. [facility] Work Phone: 1(889) 496-573808-21-2025 Miscellaneous Notes* Post-Procedure Note - Morro Calderon MD - 06/22/2025 7:30 AM EDT Interventional Radiology Brief Postprocedure Note Attending: Morro Calderon MD Cafe Operator: none Diagnosis: 1. Liver cell carcinoma CT [...] in stable condition. * Pre-Procedure Note - Morro Calderon MD - 06/22/2025 7:30 AM EDT Interventional [...] been discussed with the patient and/or their policy services representative. All questions answered and they agree to proceed. documented in this [facility] Work Phone: 1(937) 158-849408-21-2025 Surgery Postoperative evaluation and management note* Post-Procedure Note - Morro Calderon MD - 06/22/2025 7:30 AM EDT Interventional Radiology Brief Postprocedure Note Attending: Morro Calderon MD Cafe Operator: none Diagnosis: 1. Liver cell carcinoma CT [...] or complication and is in stable condition. [facility] Work Phone: 1(221) 767-921108-14-2025 History of Present illness Narrative* Emely Pedersen DO - 06/15/2025 8:40 AM EDT Images from the original note were not included. FAMILY MEDICINE NOTE Chief Complaint: Pre op clearance HPI: Patient presents today for a pre-surgical evaluation. Pt will be undergoing ablation on liver with [facility] on 06-22-2025. Patient has had surgery in the past. without any significant adverse effects of anesthesia. Pt denies hx of CVA, TIA, AK, CHF, DVT or PE. Pt has been [...] or herbal medications (such as garlic, ginseng, Slick'sWort, etc.) at least 7-10 days prior to surgery. -Pt advised to skip ozempic dose the week before the surgery -A copy of this progress note will be forwarded to [facility] today Patient's Medications New Prescriptions No medications on file Previous Medications ACYCLOVIR (ZOVIRAX) 400 MG TABLET Take 400 mg by mouth in the morning and 400 mg before bedtime. ALBUTEROL (2.5 MG/3ML) 0.083% NEBULIZER SOLUTION Take 3 mL (2.5 mg) by nebulization every 6 (six) hours if needed for wheezing ATORVASTATIN (LIPITOR) 40 MG TABLET Take 1 tablet (40 mg) by mouth Daily ADOVQLU-VNZJGHTVSGD-ODRQMBRXPY (BREZTRI AEROSPHERE) 160-9-4.8 MCG/ACT AEROSOL Inhale 2 [...] recheck. Emely Pedersen DO documented in this encounterMercy Hospital St. LouisMqpbrehxhi44-01-3327 Instructions* Patient Instructions* Emely Pedersen DO - [...] or herbal medications (such as garlic, ginseng, Slick'sWort, etc.) at least 7-10 days prior to surgery. -Skip ozempic dose the week before the surgery documented in this encounterMercy Hospital St. LouisPmszjnlhnv50-17-6671 Hospital Discharge instructions Patient Education 06/12/2025 10:52:35 [...] including vitamins, herbs, eye drops, creams, and subz-oge-vpppbca medicines. Any problems you or family members [...] provider tells you to take them. Taking rvcp-prs-krszkdu medicines, vitamins, herbs, and supplements. Tests You [...] Follow these instructions at home: Medicines Take yhvr-ndr-jwrcriu and prescription medicines only as told by [...] provider. Document Revised: 07/02/2022 Document Reviewed: 05/31/2021 [employer] Patient Education 2023 [employer]. 06/12/2025 10:52:32 Hematuria, Adult Hematuria, Adult Hematuria [...] Follow these instructions at home: Medicines Take xpuq-yno-sswugzj and prescription medicines only as told by [...] or the blood stops without treatment. Take hsno-nqx-fsehdeq and prescription medicines only as told by your health care provider. Drink enough fluid to keep your urine pale yellow. This information is not intended to replace advice given to you by your health care provider. Make sure you discuss any questions you have with your health care provider. Document Revised: 06/19/2021 Document Reviewed: 06/19/2021 [employer] Patient Education 2023 [employer] Party. Follow Up Care 06/05/2025 09:27:58 With:MIGUEL ANGEL JASSO, Marlon Rangel, URL Address: [address] [place] [id number] When: Unknown [facility] 08-11-2025 NotePatient Education Urology Cystoscopy Cystoscopy [...] including vitamins, herbs, eye drops, creams, and idfo-mrz-mrnussn medicines. ??? Any problems you or family [...] tells you to take them. ??? Taking qmch-zzg-cfnzomq medicines, vitamins, herbs, and supplements. Tests You [...] these instructions at home: Medicines ??? Take egzo-nau-xghavfa and prescription medicines only as told by [...] testing (biopsy) during your (more content not included)...[facility]07-28-2025 Evaluation note* Diagnosis Onset Date Resolution Status [...] sinusitisresolvedOctober 2024 7:59amDiabetes mellitusinactiveOctober 2024 7:59amFibromyalgia inactiveOctober 2024 7:59amSmoldering multiple myeloma (SMM)inactive August 16, 2025 7:59am [facility] Work Phone: 1([phone]) 260-738807-28-2025 Hospital Discharge instructionsAmbulatory Orders* Referral to Urology Time Frame: 05/29/25, Location: None Selected [facility] Work Phone: 1(427) 994-201507-18-2025 Telephone encounter Note* Telephone Encounter - Emely [...] I give full clearance for the surgery? [facility] LouisGuqelfptxx71-77-1417 Miscellaneous Notes* Telephone Encounter - Emely Pedersen [...] clearance for the surgery? documented in this encounterMercy Hospital St. LouisAsbthwezsg16-04-2215 Evaluation note* Diagnosis Onset Date Resolution Status [...] carcinomaacute July 19, 2025 9:55amNauseaacuteSeptember 2024 9:55am [facility] Work Phone: 1(655) 229-429707-17-2025 Evaluation note* Diagnosis Onset Date Resolution Status [...] 10:26amChemotherapy- induced neutropeniachronicSeptember 2024 10:26amChronic copper deficiency chronicSept2024 10:26amDegenerative cervical spinal stenosischronic July 27, 2025 10:26amEncounter for antineoplastic immunotherapychronic July 27, 2025 10:26amEncounter for chemotherapy managementchronic July 27, 2025 10:26amEncounter for coordination of complex carechronic July 27, 2025 10:26amHistory of 2019 novel coronavirus disease (COVID-19) chronicSeptember 2024 10:26am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 chronicSeptember 2024 10:26amIron deficiencychronicSeptember 2024 10:26amLiver cirrhosis secondary to KAPADIA (nonalcoholic steatohepatitis)chronic July 27, 2025 10:26amMultiple myelomachronicSeptember 2024 10:26am Neutropenia, unspecifiedchronicSeptember 2024 10:26amObesitychronic July 27, 2025 10:26amThrombocytopenia due to sequestrationchronic July 27, 2025 10:26amFrontal sinusitisresolvedSept2024 10:26amDiabetes mellitusinactiveSept2024 10:26amFibromyalgiainactive July 27, 2025 10:26amSmoldering multiple myeloma (SMM)inactiveSept2024 10:26am [facility] Work Phone: 1([phone] 756-663007-17-2025 Evaluation note* Diagnosis Onset Date Resolution Status [...] 2024 8:17amSmoldering multiple myeloma (SMM)inactiveOctober 2024 8:17am [facility] Work Phone: 1([phone]) 421-529207-14-2025 History of Present illness Narrative* Emely Pedersen, - 05/15/2025 10:00 AM EDT Images from the original note were not included. FAMILY MEDICINE NOTE Chief Complaint: Presurgery consult HPI: Patient presents today for a pre-surgical evaluation. Pt will be undergoing liver ablation with on June 01. Patient has had surgery in the past. without any significant adverse effects of anesthesia. Pt denies hx of CVA, TIA, AK, CHF, DVT or PE. Pt has been [...] or herbal medications (such as garlic, ginseng, Slick'sWort, etc.) at least 7-10 days prior to [...] BY MOUTH EVERY DAY FOR 90 DAYS XSBLQMN-WRQUTKSTEVR-HGUUQPUESI (BREZTRI AEROSPHERE) 160-9-4.8 MCG/ACT AEROSOL Inhale 2 [...] f/u. Emely Pedersen DO documented in this encounterMercy Hospital St. LouisPuxckxocim19-02-0191 Telephone encounter Note* Telephone Encounter - Tesha Epps - 04/26/2025 11:19 AM EDT Called and spoke with patient 04/26/25 at 1117AM Patient ECHO has been scheduled for the same day as visit with Dr. Mendez on 08/17/25 Patient is aware [facility]06-25-2025 Miscellaneous Notes* Telephone Encounter - Tesha Epps [...] calling: self Call patient at: at home [phone] (home) [phone] (cell) Was an appointment scheduled: No Closing statement: Results or non-symptom based questions: Thank you for calling [facility], your call will be returned within the next business day. Blair Masters [facility]06[facility] Telephone encounter Note * Telephone Encounter - [...] calling: self Call patient at: at home [phone] (home) [phone] (cell) Was an appointment scheduled: No Closing statement: Results or non-symptom based questions: Thank you for calling [facility], your call will be returned within the next business day. Blair Masters [facility]06-19-2025 Evaluation note* Diagnosis Onset Date Resolution Status [...] complex carechronicAugust 2024 9:29am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chronicAugu2024 9:29amLiver cirrhosis secondary to KAPADIA (nonalcoholic steatohepatitis)chronicAugust 2024 9:29amMultiple myeloma chronicAugust 2024 9:29amThrombocytopenia due to sequestrationchronic June 15, 2025 9:29amAcute right hip painacuteAugust 2024 9:58am HematuriaacuteAugust 2024 9:58amAcute thoracic back painchronicAugust 2024 9:58amBone marrow hypocellularitychronicAugu2024 9:58am Cancer-related painchronicAugu2024 9:58amChemotherapy-induced neutropeniachronicAugu2024 9:58amChronic copper deficiencychronicAugust 2024 9:58amDegenerative cervical spinal stenosischronicAugu2024 9:58amEncounter for antineoplastic immunotherapychronicAugu2024 9:58am Encounter for chemotherapy managementchronicA2024 9:58amEncounter for coordination of complex carechronOr[facility] Centerugust 2024 9:58amHistory of 2019 novel coronavirus disease (COVID-19)chronicAugust 2024 9:58am 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chronicAugu2024 9:58amIron deficiencychronicAugust 2024 9:58amLiver cirrhosis secondary to KAPADIA (nonalcoholic steatohepatitis)chronicAugus2024 9:58amMultiple myeloma chronicAugust 2024 9:58amNeutropenia, unspecifiedchronicAugust 2024 9:58amObesitychronicAugust 2024 9:58amThrombocytopenia due to sequestrationchronicAugust 2024 9:58amFrontal sinusitisresolvedAugust 2024 9:58amDiabetes mellitusinactiveAugust 2024 9:58amFibromyalgia inactiveAugust 2024 9:58amSmoldering multiple myeloma (SMM)inactiveAugust 2024 9:58am [facility] Work Phone: 1(647) 310-595006-19-2025 Evaluation note* Diagnosis Onset Date Resolution Status [...] managementchronicAugust 2024 10:00amEncounter for coordination of complex carechronicAugust 2024 10:00amHistory of 2019 novel coronavirus disease (COVID-19)chronicAugust 2024 10:00am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chronicAugust 2024 10:00amIron deficiencychronicAugust 2024 10:00amLiver cirrhosis secondary to KAPADIA (nonalcoholic steatohepatitis)chronicAugust 2024 10:00am Multiple myelomachronicAugust 2024 10:00amNeutropenia, unspecifiedchronic June 15, 2025 10:00amObesitychronicAugust 2024 10:00amThrombocytopenia due to sequestrationchronicAugust 2024 10:00amFrontal sinusitisresolved June 15, 2025 10:00amDiabetes mellitusinactiveAugust 2024 10:00am FibromyalgiainactiveAugust 2024 10:00amSmoldering multiple myeloma (SMM) inactiveAugust 2024 10:00am [facility] Work Phone: 1(147) 691-872106-19-2025 Evaluation note* Diagnosis Onset Date Resolution Status Admit Date Cancer associated pain acuteJune 2024 8:27amHepatocellular carcinomaacuteJune 2024 8:27am Multiple myelomaacuteJune 2024 8:27amBilateral leg painacuteJune 2024 8:35amHemorrhoids, complicatedacuteJune 2024 8:35amHepatocellular carcinomaacuteJune 2024 8:35amIron deficiency anemiaacuteJune 2024 8:35amBone marrow hypocellularitychronicJune 2024 8:35amCancer-related painchronicJune 2024 8:35amEncounter for antineoplastic immunotherapy chronicJune 2024 8:35amEncounter for coordination of complex carechronic April 20, 2025 8:35am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chronicJune 2024 8:35amLiver [...] 9:29amLiver cirrhosis secondary to KAPADIA (nonalcoholic steatohepatitis)chronic Ames 2024 9:29amMultiple myelomachronicAugust 2024 9:29am Thrombocytopenia due to sequestrationchronicAugust 2024 9:29amAcute right hip painacuteSeptember 2024 9:14amHematuriaacuteSeptember 2024 9:14amAcute thoracic back painchronicSeptember 2024 9:14amBone marrow hypocellularitychronicSeptember 2024 9:14amCancer-related painchronic Pallavi 2024 9:14amChemotherapy-induced neutropeniachronicSeptember 2024 9:14amChronic copper deficiencychronicSeptember 2024 9:14am Degenerative cervical spinal stenosischronicSeptember 2024 9:14amEncounter for antineoplastic immunotherapychronicSeptember 2024 9:14amEncounter for chemotherapy managementchronicSeptember 2024 9:14amEncounter for coordination of complex carechronicSeptember 2024 9:14amHistory of 2019 novel coronavirus disease (COVID-19)chronicSeptember 2024 9:14am 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chronicSeptember 2024 9:14am Iron deficiencychronicSeptember 2024 9:14amLiver cirrhosis secondary to KAPADIA (nonalcoholic steatohepatitis)chronicSeptember 2024 9:14amMultiple myelomachronicSeptember 2024 9:14amNeutropenia, unspecifiedchronic Pallavi 2024 9:14amObesitychronicSeptember 2024 9:14am Thrombocytopenia due to sequestrationchronicSeptember 2024 9:14amFrontal sinusitisresolvedSeptember 2024 9:14amDiabetes mellitusinactiveSeptember 2024 9:14amFibromyalgiainactiveSeptember 2024 9:14amSmoldering multiple myeloma (SMM)inactiveSeptember 2024 9:14amCancer associated pain acuteSeptember 2024 9:55amHepatocellular carcinomaacuteSeptember 2024 9:55amNauseaacuteSeptember 2024 9:55am [facility] Work Phone: 1(168) 112-263106-09-2025 History of Present illness Narrative* Emely Pedersen DO - 04/10/2025 10:20 AM EDT Images from the original note were not included. FAMILY MEDICINE NOTE Chief Complaint: ER Follow up HPI: Chart Review: Flowsheet Row Patient Outreach from 04/03/2025 in [facility] with Sima Paul RN Hospital Information ED, Hospital or [facility] Facility Discharge? ED Patient has been contacted within 2 days of being seen in the ED Yes Diagnosis chest wall pain Discharge Date 04/02/25 Discharged To: Home Setting Discharge Hospital [facility] Engagement Admission Date 04/02/25 Medications Discharge [...] Cough, unspecified type COPD with acute exacerbation (CMS/[facility]) - COPD exacerbation indicated by increased wheezing [...] BY MOUTH EVERY DAY FOR 90 DAYS KIRRTWE-NGQLHPOEJTN-OFJSXTKBGU (BREZTRI AEROSPHERE) 160-9-4.8 MCG/ACT AEROSOL Inhale 2 [...] 6 weeks (around 05/22/2025) for chronic recheck. Eemly Pedersen DO documented in this encounterMercy Hospital St. LouisBijsolpdmm77-27-7005 History of Present illness Narrative* Emely Pedersen [...] BY MOUTH EVERY DAY FOR 90 DAYS GWUUMDF-OZEEXPPBRVH-AXLXLAIKGS (BREZTRI AEROSPHERE) 160-9-4.8 MCG/ACT AEROSOL Inhale 2 [...] 9:18am Cancer associated painacuteJune 2024 8:27amHepatocellular carcinomaacute Ikm 2024 8:27amMultiple myelomaacuteJune 2024 8:27amBilateral leg painacuteJune [...] 2024 9:46amSmoldering multiple myeloma (SMM)inactiveJuly 2024 9:46am [facility] Work Phone: 1([phone] 838-617705-15-2025 Evaluation note* Diagnosis Onset Date Resolution Status [...] 2:30pm Smoldering multiple myeloma (SMM)inactiveJuly 2024 2:30pm [facility] Work Phone: 1(325) 723-394505-15-2025 Evaluation note* Diagnosis Onset Date Resolution Status [...] 2024 2:30pmSmoldering multiple myeloma (SMM)inactiveJuly 2024 2:30pm [facility] Work Phone: 1(225) 566-284905-15-2025 Evaluation note* Diagnosis Onset Date Resolution Status [...] 2024 9:02amSmoldering multiple myeloma (SMM)inactiveJuly 2024 9:02am [facility] Work Phone: 1([phone] 896-870705-13-2025 Telephone encounter Note* Telephone Encounter - Joaquina Greer NP - 03/14/2025 11:11 AM EDT Urine pos for Klebsiella bacteria. Finish macrobid. Check on pt and follow up with PCP. [facility] LouisRwwixeaitz38-90-6018 Miscellaneous Notes* Telephone Encounter - Joaquina Greer NP - 03/14/2025 11:11 AM EDT Urine pos for Klebsiella bacteria. Finish macrobid. Check on pt and follow up with PCP. documented in this encounterMercy Hospital St. LouisRjmxdgmtet85-34-9103 History of Present illness Narrative* Joaquina Greer NP - 03/13/2025 11:50 AM EDT Images from the original note were not included. [address] [facility] [address] [place], [address] P: [phone] F: [phone] HPI Historian of HPI: patient Mojgan Pérez is [...] 14 capsule; Refill: 0 documented in this encounterMercy Hospital St. LouisArqsxcmyzc29-94-7122 History of Present illness Narrative* Emely Pedersen DO - 03/01/2025 1:40 PM EDTAssociated Problem(s): Chronic [...] Yes Patient had a colonoscopy done at [facility] 3 years ago Patient had mammo done [...] that we recommend minimum of annual visitwith cinder worker/performance manager. -Mincog 5/5 today Sinus Issues Experiencing facial swelling and persistent cold symptoms, possibly related to COPD. Reports blowing nose with green discharge, sometimes dark green and hard, especially in the mornings. Has been feeling stuffed up for about the last three days. Previously prescribed an antibiotic before a trip to [place], which was ineffective. Uses Breztri, nasal spray, [...] Do you have a medical power of curtain mender?: No SUBJECTIVE: PROBLEM LIST SURGICAL/SOCIAL ALLERGIES: Patient [...] No living will or medical power of curtain mender in place. - Provided paperwork for living will and power of curtain mender to review with family. Chronic obstructive pulmonary [...] BY MOUTH EVERY DAY FOR 90 DAYS RSOVIRO-USCGYHRTPMN-YIGSHBKTTJ (BREZTRI AEROSPHERE) 160-9-4.8 MCG/ACT AEROSOL Inhale 2 [...] for allergic reaction and then call 911 FREESTYLE LANCETS USE 1 LANCET EVERY DAY *E11.9* FUROSEMIDE (LASIX) 20 MG TABLET Take 1 tablet (20 mg) by mouth Daily GABAPENTIN (NEURONTIN) 400 MG CAPSULE 2 (two) times a day GLUCOSE BLOOD (ArmutSTYLE LITE) TEST STRIP Use as instructed HYDROCORTISONE [...] recheck. Emely Pedersen DO documented in this encounterMercy Hospital St. LouisLdoptikqkg11-56-6935 Telephone encounter Note* Telephone Encounter - Kalen Palomares - 01/23/2025 10:31 AM EDT 01/23/25 Called to schedule MAW & A1c pt asking for Flonase refill be [facility] to [facility] LouisNtkcktdfla87-86-8288 Miscellaneous Notes* Telephone Encounter - Kalen Palomares - 01/23/2025 10:31 AM EDT 01/23/25 Called to schedule MAW & A1c pt asking for Flonase refill be sent to [facility] * Telephone Encounter - Lisette Melissa - 01/20/2025 10:30 PM EDT Medicare Wellness past due. Also due A1c. Please call and schedule documented in this encounterMercy Hospital St. LouisYcpxuyzpyd67-20-3356 Telephone encounter Note* Telephone Encounter - Lisette Melissa - 01/20/2025 10:30 PM EDT Medicare Wellness past due. Also due A1c. Please call and schedule [facility]. LouisLhugrgtzvq81-76-4048 Evaluation note* Pre-Procedure Note - Abel Ramirez [...] by mouth once daily., Disp: , Rfl: jwgvsbirpd-ismgmqoy-elojopwcim (Breztri Aerosphere) 160-9-4.8 mcg/actuation HFA aerosol inhaler, [...] been discussed with the patient and/or their policy services representative. All questions answered and they agree to proceed. Abel Ramirez MD, PGY-6 Vascular & Interventional Radiology IR pager: [phone] NON-Urgent promotional marketing agent weekends and after hours weekdays (5pm - 5am) IR pager: [phone] Urgent & emergent promotional marketing agent weekends and after hours weekdays (5pm-7am) IR pager: [phone] [facility] Work Phone: 1(707) 906-575903-06-2025 Evaluation note* Pre-Procedure Note - Morro Calderon MD - 01/05/2025 7:30 AM EST Interventional [...] been discussed with the patient and/or their policy services representative. All questions answered and they agree to proceed. [facility] Work Phone: 1(213) 236-883203-06-2025 Miscellaneous Notes* Post-Procedure Note - Abel Ramirez [...] PACS Procedure performed by: Abel Ramirez MD Cafe Operator(s): Dr. Morro Calderon MD Estimated Blood Loss (mL): minimal Specimen: No Informed Consent: written consent obtained Prep: Ultrasound Guided Insertion: Yes Large Drape, Hand Hygiene, Surgical Cap, Surgical Mask, Sterile Gown, Sterile Gloves, Glasses, and Scrubs Patient Position: Supine Site Prep: chlorhexidine, draped, usual sterile procedure followed Anesthesia/Medications: Procedural Sedation: Please See Anesthesia Flowsheet Abel Ramirez MD, PGY-6 Interventional Radiology IR pager: [phone] NON-Urgent promotional marketing agent weekends and after hours weekdays (5pm - 5am) IR pager: [phone] Urgent & emergent promotional marketing agent weekends and after hours weekdays (5pm-7am) IR pager: [phone] * Pre-Procedure Note - Abel Ramirez MD [...] by mouth once daily., Disp: , Rfl: zgzcxjrfrz-nzjbzulw-lbzxjblbuz (Breztri Aerosphere) 160-9-4.8 mcg/actuation HFA aerosol inhaler, [...] been discussed with the patient and/or their policy services representative. All questions answered and they agree to proceed. Abel Ramirez MD, PGY-6 Vascular & Interventional Radiology IR pager: [phone] NON-Urgent promotional marketing agent weekends and after hours weekdays (5pm - 5am) IR pager: [phone] Urgent & emergent promotional marketing agent weekends and after hours weekdays (5pm-7am) IR pager: [phone] documented in this encounterChillicothe [facility] Work Phone: 1(384) 164-816403-06-2025 Miscellaneous Notes* Pre-Procedure Note - Morro Calderon MD - 01/05/2025 7:30 AM EST Interventional [...] been discussed with the patient and/or their policy services representative. All questions answered and they agree to proceed. documented in this encounterChillicothe [facility] Work Phone: 1(491) 440-816903-06-2025 Surgery Postoperative evaluation and management note* Post-Procedure [...] PACS Procedure performed by: Abel Ramirez MD Cafe Operator(s): Dr. Morro Calderon MD Estimated Blood Loss (mL): minimal Specimen: No Informed Consent: written consent obtained Prep: Ultrasound Guided Insertion: Yes Large Drape, Hand Hygiene, Surgical Cap, Surgical Mask, Sterile Gown, Sterile Gloves, Glasses, and Scrubs Patient Position: Supine Site Prep: chlorhexidine, draped, usual sterile procedure followed Anesthesia/Medications: Procedural Sedation: Please See Anesthesia Flowsheet Abel Ramirez MD, PGY-6 Interventional Radiology IR pager: [phone] NON-Urgent promotional marketing agent weekends and after hours weekdays (5pm - 5am) IR pager: [phone] Urgent & emergent promotional marketing agent weekends and after hours weekdays (5pm-7am) IR pager: [phone] [facility] Work Phone: 1(859) 422-520602-27-2025 Evaluation note* Diagnosis Onset Date Resolution Status Admit Date Bilateral leg pain acuteFebruary 2024 10:04amHemorrhoids, complicatedacuteFebruary 2024 10:04amHepatocellular carcinomaacuteFebruary 2024 10:04amHypomagnesemia acuteFebruary 2024 10:04amIron deficiency anemiaacuteFebruary 2024 10:04amRefractory chronic coughacuteFebruary 2024 10:04amBone marrow hypocellularitychronicFebr2024 10:04amCancer-related painchronic February 2024 10:04amEncounter for antineoplastic immunotherapychronic December 29, [...] 2024 9:22amCancer- related painchronicMay 2024 9:22amChemotherapy-induced neutropeniachronic March 16, 2025 9:22amChronic copper deficiencychronicMay 2024 9:22am Degenerative cervical spinal stenosischronicMay 2024 9:22amEncounter for antineoplastic immunotherapychronicMay 2024 9:22amEncounter for chemotherapy managementchronicy 2024 9:22amEncounter for coordination of complex carechronicMay 2024 9:22amHistory of 2019 novel coronavirus disease (COVID-19)chronicMay 2024 9:22am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chronicMay 2024 9:22amIron deficiencychronicMay 2024 9:22amLiver cirrhosis secondary to KAPADIA (nonalcoholic steatohepatitis)chronic March 16, 2025 9:22amMultiple myelomachronicMay 2024 9:22amNeutropenia, unspecifiedchronicMay 2024 9:22amObesitychronicMay 2024 9:22am Thrombocytopenia due to sequestrationchronicMay 2024 9:22amFrontal sinusitisresolvedMay 2024 9:22amDiabetes mellitusinactiveMay 2024 9:22amFibromyalgiainactiveMay 2024 9:22amSmoldering multiple myeloma (SMM) inactiveMay 2024 9:22am [facility] Work Phone: 1(148) 258-776802-18-2025 History of Present illness Narrative* Yinka Lopez [...] 90 DAYS, Disp: 90 tablet, Rfl: 2 Adswkdl-Tqtzgyvscvy-Xllolpvabl (Breztri Aerosphere) 160-9-4.8 MCG/ACT aerosol, Inhale 2 [...] This Visit Respiratory Chronic obstructive pulmonary disease ([facility]) Discussed the possible complications of COPD, including the risk of respiratory failure, hospitalization and . Encouraged the patient to maintain a healthy weight with a BMI of less than 26, obtain regular periods of exercise, take medications as perscribed, and to avoid enviroments with smokeexposure. Digestive Liver cirrhosis secondary to KAPADIA (nonalcoholic steatohepatitis) ([facility]) Stable and continue treatment Endocrine/Metabolic DM2 (diabetes mellitus, type 2) ([facility]) HbA1C today is . The specific goals [...] a simple paper/calendar system or downloading the GameWith application to track calorie consumption, food intake, [...] allergic rhinitis (seasonal allergies). There are common btns-wkk-lkycfkh and prescription medications used in the treatment [...] NP - 12/07/2024 6:46 AM EST Sent [facility] LouisDbomtvrmeg77-25-6897 Miscellaneous Notes* Telephone Encounter - Fabiola Palumbo [...] days 2-5, Disp: 6 tablet, Rfl: 0 Kprlzpm-Cpdedfjerew-Smohitzylk (Breztri Aerosphere) 160-9-4.8 MCG/ACT aerosol, Inhale 2 [...] the same time., Disp: , Rfl: Dextromethorphan-Pyrilamine ([place] DM) 7.5-7.5 MG/5ML liquid, Take 5 mL [...] one tablet on days 2-5 - Dextromethorphan-Pyrilamine ([place] DM) 7.5-7.5 MG/5ML liquid; Take 5 mL [...] do not improve . documented in this [facility]01-30-2025 Instructions* Patient Instructions* Fabiola Palumbo NP - 12/01/2024 3:00 PM EST PATIENT EDUCATION: documented in this [facility]01-28-2025 History and physical note * Morro Calderon MD - 11/29/2024 3:00 PM EST This consultation was provided via telemedicine using two-way, real-time interactive telecommunication technology between the patient and the physician. The interactive telecommunication technology included audio only. The patient was offered telemedicine as an option for care delivery and consented to this option. Patient location: Home Provider location: [facility] Other participants present with provider, with [...] HCC. KAPADIA cirrhosis,followed by Dr. 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 Also known to have KAPADIA cirrhosis and Dr. Sanchez follows this from hepatology at [facility]. Has had screening imaging showing a liver [...] professional and overall care of this patient. Morro Calderon MD [facility] Work Phone: 1(791) 408-570501-28-2025 History and physical note* Morro Calderon MD - 11/29/2024 3:00 PM EST This consultation was provided via telemedicine using two-way, real-time interactive telecommunication technology between the patient and the physician. The interactive telecommunication technology included audio only. The patient was offered telemedicine as an option for care delivery and consented to this option. Patient location: Home Provider location: [facility] Other participants present with provider, with [...] HCC. KAPADIA cirrhosis,followed by Dr. 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 Also known to have KAPADIA cirrhosis and Dr. Sanchez follows this from hepatology at [facility]. Has had screening imaging showing a liver [...] professional and overall care of this patient. Morro Calderon MD documented in this [facility] Work Phone: 1(103) 171-996101-27-2025 History of Present illness Narrative* Kapil Mortensen, KEITH-BINDERY MACHINE SETTER - 11/28/2024 10:20 AM ESTAssociated Order(s): Anoscopy [...] negative. Physical Exam Exam conducted with a machine inspector present. Constitutional: Appearance: Normal appearance. HENT: Head: [...] Risks, benefits, and alternatives were discussed: yes Sibley protocol: Procedure explained and questions answered to [...] not better. MATT Dao documented in this [facility] Work Phone: 1(478) 444-810601-15-2025 Evaluation note* Diagnosis Onset Date Resolution Status [...] 2024 10:10amMultiple myelomachronicJanuary 2024 10:10amThrombocytopenia due to sequestrationchronicNovuary 2024 10:10amBilateral leg painacuteFebruary 2024 10:04amHemorrhoids, complicatedacuteFebruary [...] 2024 7:44amSmoldering multiple myeloma (SMM)inactiveApril 2024 7:44am [facility] Work Phone: 1([phone] 708-882701-15-2025 Evaluation note* Diagnosis Onset Date Resolution Status [...] carcinomaacuteApril 2024 2:11pmNauseaacute February 14, 2025 2:11pm [facility] Work Phone: 1(652) 562-538701-15-2025 Telephone encounter Note* Telephone Encounter - Fabiola Palumbo NP - 11/16/2024 11:34 AM EST Sent [facility] LouisWvnfwqaxal96-22-5453 Miscellaneous Notes* Telephone Encounter - Fabiola Palumbo NP - 11/16/2024 11:34 AM EST Sent documented in this encounterMercy Hospital St. LouisAshangwkwh03-20-7899 Evaluation note* Diagnosis Onset Date Resolution Status [...] 1:54pmFibromyalgia inactiveFebruary 2024 1:54pmSmoldering multiple myeloma (SMM)inactive December 08, 2024 1:54pm [facility] Work Phone: 1([phone] 882-267512-04-2024 Evaluation note* Diagnosis Onset Date Resolution Status [...] 2024 10:10am Thrombocytopenia due to sequestrationchronicJanuary 2024 10:10am Hemorrhoids, complicatedacuteFebruary 2024 10:04amHepatocellular carcinoma [...] 2024 11:13amHematuriaacuteFebruary 2024 11:13amAcute thoracic back painchronic December 29, 2024 11:13amBone marrow hypocellularitychronicFebruary 2024 11:13amCancer-related painchronicFebruary [...] 11:13am Smoldering multiple myeloma (SMM)inactiveFebruary 2024 11:13am [facility] Work Phone: 1(185) 328-913211-18-2024 Radiology [facility]-20[facility] History of Present illness Narrative* Lisette Perkins, FIBRE TECHNOLOGIST-BINDERY MACHINE SETTER - 09/06/2024 1:00 PM EST Patient ID: [...] and RSV vaccines. Anticipate treatment transition to [facility] with Dr Marinelli. Oncology History Overview Note Referral from Dr. Marinelli at [facility]. MGUS since 2005 Followed at [facility] by Dr. Kumari, [...] radiation field this may not be entirely policy services representative. Also clonal evolution in the marrow [...] 3x weekly Hypogammaglobulinemia IVIG given 09/22/23, 10/29/23 ([facility]) 12/08/23 01/12/24 02/09/24 03/08/24 04/05/24 05/24/34. Cont [...] Present Illness: Mrs Pérez presents to the carlitos today with her daughter. No new complaints. [...] 09/[address] Lindquist documented in this [facility] Work Phone: 1(240) 124-678410-25-2024 Evaluation note* Diagnosis Onset Date Resolution Status [...] 2024 10:10amThrombocytopenia due to sequestrationchronicJanuary 2024 10:10am [facility] Work Phone: 1(292) 253-377910-24-2024 History of Present illness Narrative* Sheila Pillai DO - 08/25/2024 3:00 PM EDT Images from [...] BY MOUTH EVERY DAY FOR 90 DAYS Lnvooqr-Tzrbwighayt-Ccnfjizyhb (Breztri Aerosphere) 160-9-4.8 MCG/ACT aerosol 2 puffs, [...] NP - 08/23/2024 2:31 PM EDT Labs? [facility] ; sent [facility] LouisLbapxaugtm84-89-0745 Miscellaneous Notes* Telephone Encounter - Fabiola Palumbo NP - 08/23/2024 2:31 PM EDT Labs? [facility] ; sent documented in this [facility] [...] 90 DAYS, Disp: 90 tablet, Rfl: 3 Ommazjg-Bllavyahgjg-Fgqubmsjkg (Breztri Aerosphere) 160-9-4.8 MCG/ACT aerosol, Inhale 2 [...] CASS FREEDMAN on 07/28/24 at 9:40 AM. KAPPA/LAMBDA FREE LIGHT CHAIN,S Collection Time: 07/26/24 2:11 PM Result Value Ref Range [place] Free Light Chains QNT <0.08 (L) 0.33 [...] FLUA TEST INCLUDES - Influenza A H1 2009 FLUA TEST INCLUDES - Influenza A H3 BLANK SPACE COVID-19 PCR ([facility]) Collection Time: 08/08/24 1:28 PM Result Value [...] complication, without long-term current use of insulin ([facility]) - Semaglutide,0.25 or 0.5MG/DOS, (Ozempic, 0.25 or [...] 6 weeks (around 10/04/2024). documented in this encounterMercy Hospital St. LouisIowonamqta09-35-6334 Instructions* Patient Instructions* Fabiola Palumbo NP - [...] a simple paper/calendar system or downloading the GameWith application to track calorie consumption, food intake, exercise performance. You can also investigate Weight Watchers as a possible diet plan. Start with at least 150 minutes of exercise weekly and increase to a goal of 60 minutes per day. It isimportant to identify barriers to the following treatment plan. documented in this encounterMercy Hospital St. LouisHelmjonobb85-90-5958 History of Present illness Narrative* Supa Lindquist MD PhD - 08/16/2024 8:30 AM EDT Patient ID: Mojgan Pérez is a 68 y.o. female. Referring Physician: Supa Lindquist MD PhD [id number] [place] [id number] Primary Care Provider: Fabiola Marinelli MD Assessment/Plan 08/16/24 Still coughing. And congested [facility] Myeloma restaging labs suppressed light chains, immunoglobulins. No M-protein. Overall, platelets improved. Teclistimab q3w. IVIG today. Today labs pending Oncology History Overview Note Referral from Dr. Marinelli at [facility]. MGUS since 2005 Followed at [facility] by Dr. Kumari, [...] radiation field this may not be entirely policy services representative. Also clonal evolution in the marrow [...] 3x weekly Hypogammaglobulinemia IVIG given 09/22/23, 10/29/23 ([facility]) 12/08/23 01/12/24 02/09/24 03/08/24 04/05/24 05/24/34. Cont [...] and Affect: Mood normal. documented in this [facility] Work Phone: 1(104) 459-147909-24-2024 History of Present illness Narrative* Lisette Perkins, FIBRE TECHNOLOGIST-BINDERY MACHINE SETTER - 07/26/2024 1:00 PM EDT Patient ID: Mojgan Pérez is a 68 y.o. female. Referring Physician: Local oncologist Dr Marinelli [facility] main Dr Lindquist Primary Care Provider: Fabiola Marinelli MD Assessment/Plan 07/26/24 Myeloma restaging labs suppressed light chains, immunoglobulins. No M- protein. Overall, platelets improved (78k). Teclistimab q3w. Plans to see surgeon about aggravated hemorrhoids. Aware to let us know recommendations. Oncology History Overview Note Referral from Dr. Marinelli at [facility]. MGUS since 2005 Followed at [facility] by Dr. Kumari, and then [...] radiation field this may not be entirely policy services representative. Also clonal evolution in the marrow [...] 09/01/23, 09/08/23). Changed threshold notification forplt <35. 11/7/23 K/L ratio 0.01; IgG 338. SPEP pending. [...] 3x weekly Hypogammaglobulinemia IVIG given 09/22/23, 10/29/23 ([facility]) 12/08/23 01/12/24 02/09/24 03/08/24 04/05/24 05/24/34. Cont [...] weeks ago. Zpack and prednisone. Inhaler by shredded filler cigar maker machine. Dr Marinelli ordered a PET/CT. Needs to reschedule. Energy low. Some computer numeric control setter. (Dishes. Occas laundry. Vacuum.) Appetite good; gained [...] and Affect: Mood normal. documented in this [facility] Work Phone: 1(882) 881-284609-18-2024 History of Present illness Narrative* Letty Newsome, PARK MANAGER - 07/20/2024 10:40 AM EDT Family Medicine Note Subjective: Chief Complaint: cough HPI: Mojgan Pérez presents via telehealth visit with complaints of a cough. The patient reports that she has had a cough for some time with minimal relief. She is currently a patient of Loyd Raymundo, who currently has her on [employer]. She has had imaging completed in the [...] days 2-5, Disp: 6 tablet, Rfl: 0 Pwaghdz-Lzgeaudzpcg-Bgcmvaiplv (Breztri Aerosphere) 160-9-4.8 MCG/ACT aerosol, Inhale 2 [...] with Dr. Raymundo who has her on [facility]. The patient reports that she is not [...] NP - 07/19/2024 2:06 PM EDT [facility] LouisHrqdobaoff94-09-9111 Miscellaneous Notes* Telephone Encounter - Fabiola Palumbo NP - 07/19/2024 2:06 PM EDT Send * Telephone Encounter - Fabiola Palumbo NP - 07/19/2024 2:05 PM EDT Patient has URI, requesting ATB documented in this [facility]09-17-2024 Telephone encounter Note* Telephone Encounter - Fabiola Palumbo NP - 07/19/2024 2:05 PM EDT Patient has URI, requesting ATB [place] [id number] Instructions* Patient Instructions* Juan J Mendez MD - 07/18/2024 10:28 AM EDT Echo at [facility] at next visit documented in this encounterMark Ville [address]-16-2024 History of Present illness Narrative* Juan J Mendez MD - 07/18/2024 9:54 AM EDT SUBJECTIVE: Mojgan Pérez is a 68 year old female. Patient presents with: Cardiology Follow Up Mojgan Pérez was referred by Self HPI: The patient is a pleasant, 68-year-old female, who underwent extensive evaluation at the [facility], April 2019, after presenting with chest [...] Yes, Claudication:No CONDITIONS: Hypertension: Yes, Heart failure:No, [place] [employer] Functional Classification: Class II, Atrial [...] file Gets together: Not on file Attends tenriism service: Not on file Active member of [...] pacemaker/ICD:No, Median sternotomy scar:No, Sternal instability:No CARDIAC: [place] beat not localized, Cardiac thrill:No, Heart rate normal:Yes, Heart rhythm normal:Yes, S1 normal:Yes, S2 normal:Yes, S3 ausculated:No, S4 ausculated:No, Gallop ausculated:No, Heart murmur:Yes, 11/07 systolic, Prosthetic valve click:No, Pericardial friction rub:No [...] which included preparing to see the patient, qscv-ql-vnmw patient care, completing clinical documentation, performing a medically appropriate examination, counseling and educating the patient/family/caregiver and ordering medications, tests or procedures. Nonrheumatic aortic valve stenosis (primary encounter diagnosis) Aneurysm of ascending aorta without rupture (hcc) Juan J Mendez MD [facility] History of Present illness Narrative* Supa Lindquist MD PhD - 07/05/2024 8:50 AM EDT Patient ID: Mojgan Pérez is a 68 y.o. female. Referring Physician: Supa Lindquist MD PhD [id number] [place] [address] Primary Care Provider: Fabiola Marinelli MD Assessment/Plan 07/05/24 Still coughing. And congested - on zyrtec Myeloma restaging labs suppressed light chains, immunoglobulins. No M-protein. Overall, platelets improved. Teclistimab q3w. IVIG today. Oncology History Overview Note Referral from Dr. Marinelli at [facility]. MGUS since 2005 Followed at [facility] by Dr. Kumari, [...] radiation field this may not be entirely policy services representative. Also clonal evolution in the marrow [...] 3x weekly Hypogammaglobulinemia IVIG given 09/22/23, 10/29/23 ([facility]) 12/08/23 01/12/24 02/09/24 03/08/24 04/05/24 05/24/34. Cont [...] blood streaks. Using inhaler. Upcoming appt with shredded filler cigar maker machine in June. Has service center appraiser at [facility]. Missed appt due to hospital stay. Rescheduled [...] and Affect: Mood normal. documented in this encounterCh[facility] Work Phone: 1(814) 465-165408-26-2024 Telephone encounter Note* Telephone Encounter - Fabiola Palumbo NP - 06/27/2024 2:28 PM EDT Sent in another encounter [place] [id number] Miscellaneous Notes* Telephone Encounter - Fabiola Palumbo NP - 06/27/2024 2:28 PM EDT Sent in another encounter * Telephone Encounter - Tiffanie Acevedo MA - 06/27/2024 1:54 PM EDT Pt left msg requesting refill of Acyclovir. She stated another doctor gave her this but she would like to start seeing Fabiola again. Please send if appropriate. documented in this encounterMer[facility] St. [id number] Telephone encounter Note* Telephone Encounter - Fabiola Palumbo NP - 06/27/2024 2:26 PM EDT Sent [place] [id number] Miscellaneous Notes* Telephone Encounter - Fabiola Palumbo NP - 06/27/2024 2:26 PM EDT Sent documented in this encounter[id number] Telephone encounter Note* Telephone Encounter - Tiffanie Acevedo MA - 06/27/2024 1:54 PM EDT Pt left msg requesting refill of Acyclovir. She stated another doctor gave her this but she would like to start seeing Fabiola again. Please send if appropriate. [facility] [id number] Evaluation note* Diagnosis Onset Date Resolution Status Admit Date Abnormal CXR (chest x-ray) acuteAugust 2023 9:59amCOPD (chronic obstructive pulmonary disease)acute June 27, 2024 9:37uaHW4 (diabetes mellitus, type 2)acuteAugust 2023 9:59amHistory of COVID-19acuteAugust 2023 9:59amHistory of tobacco abuse acuteAugust 2023 9:59amMaxillary sinusitis, chronicacuteAugust 2023 9:59am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inactiveAugust 2023 9:59amMultiple myelomaacuteAugust 2023 9:11amCancer-related painchronic June 28, 2024 9:11amAcute right hip painacuteAugust 2023 6:48am HematuriaacuteAugust 2023 6:48amAcute thoracic back painchronicAugust 2023 6:48amBone marrow hypocellularitychronicAugust 2023 6:48am Cancer-related painchronicAugust 2023 6:48amChemotherapy-induced neutropeniachronicAugu2023 6:48amChronic copper deficiencychronicAugust 2023 6:48amDegenerative cervical spinal stenosischronicAugust 2023 6:48amEncounter for antineoplastic immunotherapychronicAugust 2023 6:48am Encounter for chemotherapy managementchronicAst 2023 6:48amEncounter for coordination of complex carechronicAst 2023 6:48amHistory of 2019 novel coronavirus disease (COVID-19)chronicAugust 2023 6:48amIron deficiencychronicAugust 2023 6:48amLiver cirrhosis secondary to KAPADIA (nonalcoholic steatohepatitis)chronicAugust 2023 6:48amMultiple myeloma chronicAugust 2023 6:48amNeutropenia, unspecifiedchronicAugust 2023 6:48amObesitychronicAugust 2023 6:48amThrombocytopenia due to sequestrationchronicAugust 2023 6:48amFrontal sinusitisresolvedAugust 2023 6:48amDiabetes mellitusinactiveAugust 2023 6:48amFibromyalgia inactiveAugust 2023 6:48am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 inactiveAugust 2023 6:48amSmoldering multiple myeloma (SMM)inactiveAugust 2023 6:48amRefractory chronic coughacuteAugust 2023 9:18amBone marrow hypocellularitychronicAugust 2023 9:18amCancer-related painchronic June 29, 2024 9:18amChronic copper deficiencychronicAugu2023 9:18am Encounter for coordination of complex carechron2023 9:18amLiver cirrhosis secondary to KAPADIA (nonalcoholic steatohepatitis)chronicAugust 2023 9:18amMultiple myelomachronicAugust 2023 9:18amThrombocytopenia due to sequestrationchronicAugust 2023 9:18am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inactiveAugust 2023 9:18amCancer-related painchronic August 26, 2024 11:19amMultiple myelomachronicOct2023 11:19amLiver cirrhosis secondary to KAPADIA (nonalcoholic steatohepatitis)chronicNovember 2023 9:39am [facility] Work Phone: 1(340) 848-714208-26-2024 Evaluation note* Diagnosis Onset Date Resolution Status Admit Date Abnormal CXR (chest x-ray) acuteAugust 2023 9:59amCOPD (chronic obstructive pulmonary disease)acute June 27, 2024 9:94uhMC4 (diabetes mellitus, type 2)acuteAugust 2023 9:59amHistory of COVID-19acuteAugust 2023 9:59amHistory of tobacco abuse acuteAugust 2023 9:59amMaxillary sinusitis, chronicacuteAugust 2023 9:59am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inactiveAugust 2023 9:59amMultiple myelomaacuteAugust 2023 9:11amCancer-related painchronic June 28, 2024 9:11amRefractory chronic coughacuteAugust 2023 9:18am Bone marrow hypocellularitychronicAugust 2023 9:18amCancer-related pain chronicAugust 2023 9:18amChronic copper deficiencychronicAugust 2023 9:18amEncounter for coordination of complex carechronOrange Coast Memorial Medical Centerugust 2023 9:18am Liver cirrhosis secondary to KAPADIA (nonalcoholic steatohepatitis)chronicAugust 2023 9:18amMultiple myelomachronicAugust 2023 9:18amThrombocytopenia due to sequestrationchronicAugust 2023 9:18am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inactiveAugust 2023 9:18amCancer-related painchronic August 26, 2024 11:19amMultiple myelomachronicOctober 2023 11:19amLiver cirrhosis secondary to KAPADIA (nonalcoholic steatohepatitis)chronicNovember 2023 9:39amRefractory chronic coughacuteNovember 2023 9:52amBone marrow hypocellularitychronicNovember 2023 9:52amCancer-related painchronic September 15, 2024 9:52amChronic copper deficiencychronicNovember 2023 9:52amEncounter for coordination of complex carechronicNovember 2023 9:52amLiver cirrhosis secondary to KAPADIA (nonalcoholic steatohepatitis)chronic September 15, 2024 9:52amMultiple myelomachronicNov2023 9:52am Thrombocytopenia due to sequestrationchronicNov2023 9:52am 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inactiveNov2023 9:52am Acute right hip painacuteNov2023 9:54amHematuriaacuteNov2023 9:54amAcute thoracic back painchronicNov2023 9:54amBone marrow hypocellularitychronicNov2023 9:54amCancer-related painchronic September 15, 2024 9:54amChemotherapy-induced neutropeniachronicNov2023 9:54amChronic copper deficiencychronNov2023 9:54am Degenerative cervical spinal stenosischronicNov2023 9:54amEncounter for antineoplastic immunotherapychronicSeptember 15, 2024 9:54amEncounter for chemotherapy managementchronicSeptember 15, 2024 9:54amEncounter for coordination of complex carechronOz[facility]2023 9:54amHistory of 2019 novel coronavirus disease (COVID-19)chronicNov2023 9:54amIron deficiencychronNov2023 9:54amLiver cirrhosis secondary to KAPADIA (nonalcoholic steatohepatitis)chronicNov2023 9:54amMultiple myeloma chronicNov2023 9:54amNeutropenia, unspecifiedchronicNov2023 9:54amObesitychronicNov2023 9:54amThrombocytopenia due to sequestrationchronicNov2023 9:54amFrontal sinusitisresolvedNov2023 9:54amDiabetes mellitusinactiveSeptember 15, 2024 9:54amFibromyalgia inactiveNovember 2023 9:54am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 inactiveNov2023 9:54amSmoldering multiple myeloma (SMM)inactive September 15, 2024 9:54am [facility] Work Phone: 1(737) 333-566208-26-2024 Evaluation note* Diagnosis Onset Date Resolution Status Admit Date Abnormal CXR (chest x-ray) acuteAugust 2023 9:59amCOPD (chronic obstructive pulmonary disease)acute June 27, 2024 9:49lqOK3 (diabetes mellitus, type 2)acuteAugust 2023 9:59amHistory of COVID-19acuteAugust 2023 9:59amHistory of tobacco abuse acuteAugust 2023 9:59amMaxillary sinusitis, chronicacuteAugust 2023 9:59am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inactiveAugust 2023 9:59amMultiple myelomaacuteAugust 2023 9:11amCancer-related painchronic June 28, 2024 9:11amRefractory chronic coughacuteAugust 2023 9:18am Bone marrow hypocellularitychronicAugust 2023 9:18amCancer-related pain chronicAugust 2023 9:18amChronic copper deficiencychronicAugust 2023 9:18amEncounter for coordination of complex carechronicAugu2023 9:18am Liver cirrhosis secondary to KAPADIA (nonalcoholic steatohepatitis)chronicAugust 2023 9:18amMultiple myelomachronicAugust 2023 9:18amThrombocytopenia due to sequestrationchronicAugust 2023 9:18am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inactiveAugust 2023 9:18amCancer-related painchronic August 26, 2024 11:19amMultiple myelomachronicOctober 2023 11:19amLiver cirrhosis secondary to KAPADIA (nonalcoholic steatohepatitis)chronicNovember 2023 9:39amRefractory chronic coughacuteNovember 2023 9:52amBone marrow hypocellularitychronicNovember 2023 9:52amCancer-related painchronic September 15, 2024 9:52amChronic copper deficiencychronicNov2023 9:52amEncounter for antineoplastic immunotherapychronicNov2023 9:52amEncounter for coordination of complex carechronicNovember 2023 9:52amLiver cirrhosis secondary to KAPADIA (nonalcoholic steatohepatitis)chronic September 15, 2024 9:52amMultiple myelomachronicNov2023 9:52am Thrombocytopenia due to sequestrationchronicNov2023 9:52am 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inactiveSeptember 15, 2024 9:52am Acute right hip painacuteNov2023 9:54amHematuriaacuteNov2023 9:54amAcute thoracic back painchronicNov2023 9:54amBone marrow hypocellularitychronicNov2023 9:54amCancer-related painchronic September 15, 2024 9:54amChemotherapy-induced neutropeniachronicNov2023 9:54amChronic copper deficiencychronicNov2023 9:54am Degenerative cervical spinal stenosischronicNov2023 9:54amEncounter for antineoplastic immunotherapychronicSeptember 15, 2024 9:54amEncounter for chemotherapy managementchronicSeptember 15, 2024 9:54amEncounter for coordination of complex carechronOzarks Community Hospital2023 9:54amHistory of 2019 novel coronavirus disease (COVID-19)chronicNov2023 9:54amIron deficiencychronicNov2023 9:54amLiver cirrhosis secondary to KAPADIA (nonalcoholic steatohepatitis)chronicNov2023 9:54amMultiple myeloma chronicNov2023 9:54amNeutropenia, unspecifiedchronicNov2023 9:54amObesitychronicNov2023 9:54amThrombocytopenia due to sequestrationchronicNov2023 9:54amFrontal sinusitisresolvedNov2023 9:54amDiabetes mellitusinactiveSeptember 15, 2024 9:54amFibromyalgia inactiveSeptember 15, 2024 9:54am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 inactiveSeptember 15, 2024 9:54amSmoldering multiple myeloma (SMM)inactive September 15, 2024 9:54am [facility] Work Phone: 1(774) 467-528508-26-2024 Evaluation note* Diagnosis Onset Date Resolution Status Admit Date Abnormal CXR (chest x-ray) acuteAugust 2023 9:59amCOPD (chronic obstructive pulmonary disease)acute June 27, 2024 9:51ufVT6 (diabetes mellitus, type 2)acuteAugust 2023 9:59amHistory of COVID-19acuteAugust 2023 9:59amHistory of tobacco abuse acuteAugust 2023 9:59amMaxillary sinusitis, chronicacuteAugust 2023 9:59am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chronicAugust 2023 9:59amMultiple myelomaacuteAugust 2023 9:11amCancer-related painchronic June 28, 2024 9:11amRefractory chronic coughacuteAugust 2023 9:18am Bone marrow hypocellularitychronicAugust 2023 9:18amCancer-related pain chronicAugust 2023 9:18amChronic copper deficiencychronicAugu2023 9:18amEncounter for coordination of complex carechronicAugust 2023 9:18am 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chronicAugust 2023 9:18am Liver cirrhosis secondary to KAPADIA (nonalcoholic steatohepatitis)chronicAugust 2023 9:18amMultiple myelomachronicAugust 2023 9:18amThrombocytopenia due to sequestrationchronicAugust 2023 9:18amCancer-related painchronic August 26, 2024 11:19amMultiple myelomachronicOct2023 11:19amLiver cirrhosis secondary to KAPADIA (nonalcoholic steatohepatitis)chronicNov2023 9:39amRefractory chronic coughacuteNovember 2023 9:52amBone marrow hypocellularitychronicNovember 2023 9:52amCancer-related painchronic September 15, 2024 9:52amChronic copper deficiencychronicNovember 2023 9:52amEncounter for antineoplastic immunotherapychronicNov2023 9:52amEncounter for coordination of complex carechronicNovember 2023 [...] copper deficiencychronicNovember 2023 9:54am Degenerative cervical spinal stenosischronicNov2023 9:54amEncounter for antineoplastic immunotherapychronicNov2023 9:54amEncounter for chemotherapy managementchronicNov2023 9:54amEncounter for coordination of complex carechronicNovember 2023 9:54amHistory of 2019 novel coronavirus disease (COVID-19)chronicNovember 2023 9:54am 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chronicNovember 2023 9:54am Iron deficiencychronicNovember 2023 9:54amLiver cirrhosis secondary to KAPADIA (nonalcoholic steatohepatitis)chronicNovember 2023 9:54amMultiple myelomachronicNovoro valley hospital 2023 9:54amNeutropenia, unspecifiedchronicRobley Rex [facility] 2023 9:54amObesitychronicNovember 2023 9:54amThrombocytopenia due to sequestrationchronicNovoro [facility] hospital 2023 9:54amFrontal sinusitisresolvedRobley Rex Va Medical Center 2023 9:54amDiabetes mellitusinactiveNovember 2023 9:54am FibromyalgiainactiveRobley Rex Va Medical Center 2023 9:54amSmoldering multiple myeloma (SMM) inactiveNov2023 9:54am [facility] Work Phone: 1(559) 283-992808-19-2024 History of Present illness Narrative* Fabiola Palumbo, PARK MANAGER - 06/20/2024 3:00 PM EDT SUBJECTIVE Mojgan [...] 90 DAYS, Disp: 90 tablet, Rfl: 3 Uboravp-Gimpqzfkcvq-Rwqefjeqeg (Breztri Aerosphere) 160-9-4.8 MCG/ACT aerosol, Inhale 2 [...] affected nostril(s), Disp: , Rfl: nystatin (Mycostatin) 257295 UNIT/ML suspension, Take 5 mL (500,000 Units) [...] mellitus with other specified complication, unspecified whether snf insulin use (CMS/[facility]) - POCT glycosylated hemoglobin (Hb A1C) docked [...] HEMATOLOGY/ONCOLOGY CLINIC NOTE HPI: Recent admission in [facility] on 04/11 for abdominal pain, A-fib and [...] Overview Note Referral from Dr. Marinelli at [facility]. MGUS since 2005 Followed at [facility] by Dr. Kumari, [...] radiation field this may not be entirely policy services representative. Also clonal evolution in the marrow [...] + on 09/12/23. Treated with Paxlovid in [place] Plan to reassess and proceed with C3D1 [...] tablet (80 mg) by mouth once daily. inaywoodvx-liaqbnko-jfjnkhhdkx (Breztri Aerosphere) 160-9-4.8 mcg/actuation HFA aerosol inhaler [...] (L) 09/08/2023 Lab Results Component Value Date KAPLS 04/05/2024 Comment: One or more analytes used [...] Has excellent ongoing response Switch to teclistamab [id number] from next cycle 2. Thrombocytopenia Persists mostly [...] Dr Carolina MD Fellow Bone Marrow Transplant [facility] Associated attestation - Supa Lindquist MD PhD [...] documented in the note. documented in this encounterCh[facility]icothe [facility] Work Phone: 1(433) 791-107606-18-2024 Discharge summary Author Hortensia Clinton [facility] April 19, 2024 1:23pmNote Date/TimeJune 2023 1:24pm[place] [address] Discharge Summary Signed Patient: Mojgan Pérez MR#: [id number] : 1955 Acct:[id number] Age/Sex: 68 / F Adm Date: 4 Loc: Room: [address] [place] [address]: Hortensia Clinton MD Copies to: [...] receiving chemotherapy by an oncologist at the [facility]. Patient is known to have immunosuppressive [...] Paroxysmal A-fib converted back to sinus rhythm. Gear Shaver Set Up Operator discontinued amiodarone. He did not recommend the patient to be on anticoagulation due to her severe thrombocytopenia. The patient is to follow-up with him in the outpatient setting for further cardiovascular disease management. Diabetes, fair control. Liver cirrhosis with ascites and edema. Venous studies negative for DVT. Patient is to follow-up with her piano player. Multiple myeloma. Currently patient is receiving care by [facility] oncologist. Patient is tofollow-up with him. [...] ask her primary care doctor to obtain [facility] record entirely to address abnormalities seen on labs and imagingthat I have and have not addressed during this hospitalization, follow- up on pending blood work, imaging and pathology is if available and to follow-up on needed medical care in the outpatient setting. Time Spent with Patient Time spent providing/coordinating discharge services (# min): 60 Discharge Plan Discharge Plan Patient Disposition: Home Health [facility] Activity: Ambulate as Tolerated Diet: Diabetic Additional [...] ask your primary care provider to obtain [facility] records entirely to follow up on all [...] Communicate with your primary care doctor or pc support specialist if your blood sugar is under 100 or above 300 on 2 consecutive checks. Communicate with your primary care doctor or pc support specialist if you have anyquestions about your diabetes medications. Signs of a low blood sugar include sweating, racing heart, dizziness and/or weakness. Check your blood sugar if you have any of the symptoms. Discharging you from [facility] does not mean that your medical care [...] ONCE A DAY fluticasone propionate 50 mcg/actuation Paulina,Suspension 1 spray INTRANASAL DAILY PRN (Reason: Allergy [...] % (Auto) 61.5, Lymph % (Auto) 18.3, Briscoe % (Auto) 15.9, Eos % (Auto) 4.1, Baso % (Auto) 0.2, Nucleat RBC Rel Count 0.1, Neut # (Auto) 2.1, Lymph # (Auto) 0.6 L, Briscoe # (Auto) 0.5, Eos # (Auto) 0.1, [...] RNA (PCR) IU/mL N/A, HCV RNA PCR copyright expert log10 N/A, Hepatitis C Interp Documented By: Hortensia Clinton MD 04/19/24 1319 Signed By: <Electronically signed by Hortensia Clinton MD> 04/19/24 1323 [facility] Work Phone: 1(648) 812-966406-18-2024 Progress note Author Lakeisha Angela [facility] April 19, 2024 9:45amNote Date/TimeJune 2023 9:45[place] [address] Infect. Disease Progress Note Signed Patient: Mojgan Pérez MR#: [id number] : 1955 Acct:[id number] Age/Sex: 68 / F Adm Date: 4 Loc: Room: [address] [place] [address] Type: ADM IN Attending Dr: Hortensia Clinton [...] 400 Mg Tablet) 400 mg PO BID [facility] Last Admin: 04/19/24 08:37 Dose: 400 mg Albuterol (Albuterol Hfa 60 Puff/8 Gram Inhaler) 2 puff INHALATION Q4H PRN PRN Reason: Shortness Of Breath Stop: 04/10/25 23:14 Albuterol (Albuterol Neb 2.5 Mg/3 Ml Vial.Neb) 2.5 mg INHALATION Q6HR [facility] Stop: 04/11/25 00:00 Last Admin: 04/19/24 06:16 Dose: 2.5 mg Atorvastatin Calcium (Atorvastatin 80 Mg Tablet) 80 mg PO DAILY [facility] Stop: 04/11/25 08:59 Last Admin: 04/18/24 08:16 Dose: 80 mg Benzonatate (Benzonatate 100 Mg Capsule) 100 mg PO TID PRN PRN Reason: Cough Stop: 04/13/25 17:24 Last Admin: 04/19/24 08:37 Dose: 100 mg Carvedilol (Carvedilol 12.5 Mg Tablet) 12.5 mg PO BID.WITH.MEALS [facility] Stop: 04/11/25 07:59 Last Admin: 04/19/24 08:37 Dose: 12.5 mg Cyanocobalamin (Cyanocobalamin 1,000 Mcg Tablet) 1,000 mcg PO DAILY [facility] Stop: 04/11/25 08:59 Last Admin: 04/19/24 08:37 Dose: 1,000 mcg Cyclobenzaprine HCl (Cyclobenzaprine 5 Mg Tablet) 5 mg PO Q8HR PRN PRN Reason: Muscle Spasm Stop: 04/12/25 13:36 Last Admin: 04/19/24 08:36 Dose: 5 mg Epinephrine HCl (Epinephrine/Pf 1 Mg/Ml Ampul) 0.3 mg IM ONCE PRN PRN Reason: anaphylaxis Fluticasone Propionate (Fluticasone Propionate Paulina 120 Paulina/16 Gm Bottle) 1 spray INTRANASAL DAILY PRN PRN Reason: Allergy Symptoms Stop: 04/10/25 23:14 Furosemide (Furosemide 20 Mg Tablet) 20 mg PO DAILY.8A [facility] Stop: 04/18/25 07:59 Last Admin: 04/19/24 08:37 Dose: 20 mg Gabapentin (Gabapentin 400 Mg Capsule) 400 mg PO TID [facility] Stop: 04/11/25 08:59 Hydromorphone HCl (Hydromorphone 0.5 Mg/0.5 Ml Syringe) 0.5 mg IV-PUSH Q2H PRN PRN Reason: Pain Last Admin: 04/17/24 12:40 Dose: 0.5 mg Cefepime HCl (Maxipime) 2 gm in 50 mls @ 12.5 mls/hr IV Q8H [facility] Last Admin: 04/19/24 06:55 Dose: 12.5 mls/hr Ipratropium Hawthorn (Ipratropium Hawthorn 0.5 Mg/2.5 Ml Vial.Neb) 0.5 mg INHALATION Q4H PRN PRN Reason: Shortness Of Breath Or Wheezing Stop: 04/14/25 14:33 Lactulose (Lactulose 20 Gm/30 Ml Udc) 20 gm PO TID [facility] Stop: 04/14/25 13:59 Last Admin: 04/19/24 08:36 Dose: 10 gm Melatonin (Melatonin 3 Mg Tablet) 3 mg PO QHS [facility] Stop: 04/11/25 21:59 Last Admin: 04/18/24 21:46 [...] 40 Mg Tablet.Dr) 40 mg PO BID [facility] Stop: 04/11/25 08:59 Last Admin: 04/19/24 08:37 Dose: 40 mg Potassium Chloride (Potassium Chloride Er 10 Meq Capsule.Er) 10 meq PO DAILY [facility] Stop: 04/11/25 08:59 Last Admin: 04/19/24 08:37 [...] By: <Electronically signed by MD Lakeisha Miller> 04/19/24 0945 [facility] Work Phone: 1(334) 382-324406-17-2024 Progress note Author Lakeisha Miller [facility] April 18, 2024 9:53amNote Date/TimeJune 2023 9:50[place] [address] Infect. Disease Progress Note Signed Patient: Mojgan Pérez MR#: [id number] : 1955 Acct:[id number] Age/Sex: 68 / F Adm Date: 4 Loc: 3T Room: [address] [place] [address] Type: ADM IN Attending Dr: Hortensia Clinton [...] 400 Mg Tablet) 400 mg PO BID [facility] Last Admin: 04/18/24 08:16 Dose: 400 mg Albuterol (Albuterol Hfa 60 Puff/8 Gram Inhaler) 2 puff INHALATION Q4H PRN PRN Reason: Shortness Of Breath Stop: 04/10/25 23:14 Albuterol (Albuterol Neb 2.5 Mg/3 Ml Vial.Neb) 2.5 mg INHALATION Q6HR [facility] Stop: 04/11/25 00:00 Last Admin: 04/18/24 05:50 Dose: 2.5 mg Atorvastatin Calcium (Atorvastatin 80 Mg Tablet) 80 mg PO DAILY [facility] Stop: 04/11/25 08:59 Last Admin: 04/18/24 08:16 Dose: 80 mg Benzonatate (Benzonatate 100 Mg Capsule) 100 mg PO TID PRN PRN Reason: Cough Stop: 04/13/25 17:24 Last Admin: 04/18/24 08:16 Dose: 100 mg Carvedilol (Carvedilol 12.5 Mg Tablet) 12.5 mg PO BID.WITH.MEALS [facility] Stop: 04/11/25 07:59 Last Admin: 04/18/24 08:16 [...] PRN Reason: anaphylaxis Fluticasone Propionate (Fluticasone Propionate Paulina 120 Paulina/16 Gm Bottle) 1 spray INTRANASAL DAILY PRN PRN Reason: Allergy Symptoms Stop: 04/10/25 23:14 Furosemide (Furosemide 20 Mg Tablet) 20 mg PO DAILY.8A [facility] Stop: 04/18/25 07:59 Last Admin: 04/18/24 08:15 Dose: 20 mg Gabapentin (Gabapentin 400 Mg Capsule) 400 mg PO TID [facility] Stop: 04/11/25 08:59 Hydromorphone HCl (Hydromorphone 0.5 Mg/0.5 Ml Syringe) 0.5 mg IV-PUSH Q2H PRN PRN Reason: Pain Last Admin: 04/17/24 12:40 Dose: 0.5 mg Cefepime HCl (Maxipime) 2 gm in 50 mls @ 12.5 mls/hr IV Q8H [facility] Last Admin: 04/18/24 02:45 Dose: 12.5 mls/hr Magnesium Sulfate (Magnesium Sulf 4 Gm-*Swfi*) 4 gm in 100 mls @ 25 mls/hr IV ONCE ONE Stop: 04/18/24 12:54 Potassium Chloride 20 meq/ (Sodium Chloride) 260 mls @ 130 mls/hr IV ONCE ONE Stop: 04/18/24 10:54 Ipratropium Hawthorn (Ipratropium Hawthorn 0.5 Mg/2.5 Ml Vial.Neb) 0.5 mg INHALATION Q4H PRN PRN Reason: Shortness Of Breath Or Wheezing Stop: 04/14/25 14:33 Lactulose (Lactulose 20 Gm/30 Ml Udc) 20 gm PO TID [facility] Stop: 04/14/25 13:59 Last Admin: 04/18/24 08:15 Dose: 20 gm Melatonin (Melatonin 3 Mg Tablet) 3 mg PO QHS [facility] Stop: 04/11/25 21:59 Last Admin: 04/17/24 21:49 [...] 40 Mg Tablet.Dr) 40 mg PO BID [facility] Stop: 04/11/25 08:59 Last Admin: 04/18/24 08:16 [...] this episode. Documented By: Lakeisha Miller MD 04/18/24 0949 Signed By: <Electronically signed by MD Lakeisha Miller> 04/18/24 0953 [facility] Work Phone: 1([phone]) 737-384106-17-2024 Progress note Author Hortensia Clinton [facility] April 18, 2024 9:10amNote Date/TimeJune 2023 9:10[place] [address] Hospitalist Progress Note Signed Patient: Mojgan Pérez MR#: [id number] : 1955 Acct:[id number] Age/Sex: 68 / F Adm Date: 4 Loc: Room: [address] [place] [address] Type: ADM IN Attending Dr: Hortensia Clinton [...] Propionate 1 spray 04/10/24 23:15 Fluticasone Propionate Paulina 120 Paulina/16 Gm Bottle INTRANASAL 04/10/25 23:14 DAILY PRN [...] Albuminar-25 IV 04/18/24 09:28 ONCE ONE Ipratropium Hawthorn 0.5 mg 04/14/24 14:34 Ipratropium Hawthorn 0.5 Mg/2.5 Ml Vial.Neb INHALATION 04/14/25 14:33 [...] to follow-up with her oncology team in [place]. Multiple other medical issues not listed above. Documented By: Hortensia Clinton MD 04/18/24 0907 Signed By: <Electronically signed by Hortensia Clinton MD> 04/18/24 0910 [facility] Work Phone: 1([phone] Progress note Author Modesto Aquino [facility] April 17, 2024 9:53amNote Date/TimeJune 2023 9:[address] [address] Hospitalist Progress Note Signed Patient: Mojgan Pérez MR#: [id number] : 1955 Acct:[id number] Age/Sex: 68 / F Adm Date: 4 Loc: Room: [address] [place] [address] Type: ADM IN Attending Dr: Modesto Aquino [...] Tablet PO 04/11/25 07:59 12.5 mg BID.WITH.MEALS [facility] Administration Cyanocobalamin 1,000 mcg 04/11/24 09:00 04/17/24 [...] Propionate 1 spray 04/10/24 23:15 Fluticasone Propionate Paulina 120 Paulina/16 Gm Bottle INTRANASAL 04/10/25 23:14 DAILY PRN [...] 04/16/25 03:44 Not Given .Q24H [facility] Ipratropium Hawthorn 0.5 mg 04/14/24 14:34 Ipratropium Hawthorn 0.5 Mg/2.5 Ml Vial.Neb INHALATION 04/14/25 14:33 [...] signed by Modesto Aquino MD> 04/17/24 0953 [facility] Work Phone: [phone] Progress note Author Modesto Aquino [facility] April 16, 2024 11:15amNote Date/TimeJune 2023 10:58[place] [address] Hospitalist Progress Note Signed Patient: Mojgan Pérez MR#: [id number] : 1955 Acct:[id number] Age/Sex: 68 / F Adm Date: 4 Loc: Room: [address] [place] [address] Type: ADM IN Attending Dr: Modesto Aquino [...] Propionate 1 spray 04/10/24 23:15 Fluticasone Propionate Paulina 120 Paulina/16 Gm Bottle INTRANASAL 04/10/25 23:14 DAILY PRN [...] 04/16/25 03:44 Not Given .Q24H [facility] Ipratropium Hawthorn 0.5 mg 04/14/24 14:34 Ipratropium Hawthorn 0.5 Mg/2.5 Ml Vial.Neb INHALATION 04/14/25 14:33 [...] <Electronically signed by Modesto Aquino MD> 04/16/24 5643 [facility] Work Phone: 1([phone] 492-432606-14-2024 Progress note Author Modesto Aquino [facility] April 15, 2024 4:37pmNote Date/TimeJune 2023 4:[address] [address] Hospitalist Progress Note Signed Patient: Mojgan Pérez MR#: [id number] : 1955 Acct:[id number] Age/Sex: 68 / F Adm Date: 4 Loc: Room: [address] [place] [address] Type: ADM IN Attending Dr: Modesto Aquino [...] Propionate 1 spray 04/10/24 23:15 Fluticasone Propionate Paulina 120 Paulina/16 Gm Bottle INTRANASAL 04/10/25 23:14 DAILY PRN [...] Maxipime IV Infused Q8H [facility] Infusion Ipratropium Hawthorn 0.5 mg 04/14/24 14:34 Ipratropium Hawthorn 0.5 Mg/2.5 Ml Vial.Neb INHALATION 04/14/25 14:33 [...] 04/11/24 09:00 04/15/24 08:29 Pantoprazole 40 Mg Tablet. PO 04/11/25 08:59 [...] <Electronically signed by Modesto Aquino MD> 04/15/[address] [place] [address] Work Phone: [phone] 955-333606-14-2024 Progress note Author Lakeisha Miller [facility] April 15, 2024 12:37pmNote Date/TimeJune 2023 10:45[place] [address] Infect. Disease Progress Note Signed Patient: Mojgan Pérez MR#: [id number] : 1955 Acct:[id number] Age/Sex: 68 / F Adm Date: 4 Loc: Room: [address] [place] [address] Type: ADM IN Attending Dr: Modesto Aquino [...] 400 mg PO BID [facility] Last Admin: 04/15/24 08:29 Dose: 400 mg Albuterol (Albuterol Hfa 60 Puff/8 Gram Inhaler) 2 puff INHALATION Q4H PRN PRN Reason: Shortness Of Breath Stop: 04/10/25 23:14 Albuterol (Albuterol Neb 2.5 Mg/3 Ml Vial.Neb) 2.5 mg INHALATION Q6HR [facility] Stop: 04/11/25 00:00 Last Admin: 04/15/24 04:53 Dose: Not Given Atorvastatin Calcium (Atorvastatin 80 Mg Tablet) 80 mg PO DAILY [facility] Stop: 04/11/25 08:59 Last Admin: 04/15/24 08:29 Dose: 80 mg Benzonatate (Benzonatate 100 Mg Capsule) 100 mg PO TID PRN PRN Reason: Cough Stop: 04/13/25 17:24 Last Admin: 04/14/24 20:39 Dose: 100 mg Carvedilol (Carvedilol 12.5 Mg Tablet) 12.5 mg PO BID.WITH.MEALS [facility] Stop: 04/11/25 07:59 Cyanocobalamin (Cyanocobalamin 1,000 Mcg [...] PRN Reason: anaphylaxis Fluticasone Propionate (Fluticasone Propionate Paulina 120 Paulina/16 Gm Bottle) 1 spray INTRANASAL DAILY PRN PRN Reason: Allergy Symptoms Stop: 04/10/25 23:14 Gabapentin (Gabapentin 400 Mg Capsule) 400 mg PO TID [facility] Stop: 04/11/25 08:59 Hydromorphone HCl (Hydromorphone 0.5 Mg/0.5 Ml Syringe) 0.5 mg IV-PUSH Q2H PRN PRN Reason: Pain Last Admin: 04/13/24 00:13 Dose: 0.5 mg Cefepime HCl (Maxipime) 2 gm in 50 mls @ 12.5 mls/hr IV Q8H [facility] Last Admin: 04/15/24 02:22 Dose: 12.5 mls/hr Ipratropium Hawthorn (Ipratropium Hawthorn 0.5 Mg/2.5 Ml Vial.Neb) 0.5 mg INHALATION Q4H PRN PRN Reason: Shortness Of Breath Or Wheezing Stop: 04/14/25 14:33 Lactulose (Lactulose 20 Gm/30 Ml Udc) 20 gm PO TID [facility] Stop: 04/14/25 13:59 Last Admin: 04/15/24 08:29 Dose: 20 gm Melatonin (Melatonin 3 Mg Tablet) 3 mg PO QHS [facility] Stop: 04/11/25 21:59 Last Admin: 04/14/24 21:52 [...] 40 Mg Tablet.Dr) 40 mg PO BID [facility] Stop: 04/11/25 08:59 Last Admin: 04/15/24 08:29 Dose: 40 mg Potassium Chloride (Potassium Chloride Er 10 Meq Capsule.Er) 10 meq PO DAILY [facility] Stop: 04/11/25 08:59 Last Admin: 04/15/24 08:29 [...] signed by MD MARISEL Hughes> 04/15/24 1051 [facility] Work Phone: 1([phone] 468-888406-13-2024 Progress note Author Ritchie Mcmillan [facility] April 14, 2024 6:28pmNote Date/TimeJune 2023 6:28[place] [address] Progress Note Signed Patient: Mojgan Pérez MR#: [id number] : 1955 Acct:[id number] Age/Sex: 68 / F Adm Date: 4 Loc: Room: [address] [place] [address] Type: ADM IN Attending Dr: Modesto Aquino [...] By: <Electronically signed by MD Ritchie Mcmillan> 04/14/248 [facility] Work Phone: 1(324) 353-952806-13-2024 Progress note Author Modesto Aquino [facility] April 14, 2024 2:34pmNote Date/TimeJune 2023 2:20[place] [address] Hospitalist Progress Note Signed Patient: Mojgan Pérez MR#: [id number] : 1955 Acct:[id number] Age/Sex: 68 / F Adm Date: 4 Loc: Room: [address] [place] [address] Type: ADM IN Attending Dr: Modesto Aquino [...] Cannula 2 04/14/24 10:00 04/14/24 12:00 04/14/24 12:04/14/24 12:04/14/24 12:04/14/24 12:04/14/24 12:00 Narrative: Const General: more comfortable HEENT [...] Propionate 1 spray 04/10/24 23:15 Fluticasone Propionate Paulina 120 Paulina/16 Gm Bottle INTRANASAL 04/10/25 23:14 DAILY PRN [...] <Electronically signed by Modesto Aquino MD> 04/14/24 1435 [facility] Work Phone: [phone] 241-864806-13-2024 Progress note Author João Belcher [facility] April 14, 2024 11:49amNote Date/TimeJune 2023 11:27[place] [address] Cardiology Progress Note Signed with Addenda Patient: Mojgan Pérez MR#: [id number] : 1955 Acct:[id number] Age/Sex: 68 / F Adm Date: 4 Loc: Room: 7C8027-0 Type: ADM IN Attending Dr: Modesto Aquino [...] % (Auto) 76.2 Lymph % (Auto) 7.2 Briscoe % (Auto) 15.0 Eos % (Auto) 1.1 Baso % (Auto) 0.5 Nucleat RBC Rel Count 0.1 Neut # (Auto) 3.1 Lymph # (Auto) 0.3 L [place]iscoe # (Auto) 0.6 Eos # (Auto) 0.0 [...] By: <Electronically signed by João Belcher MD> 04/14/241126 [facility] Work Phone: [phone] Progress note Author Lakeisha Miller [facility] April 14, 2024 10:28amNote Date/TimeJun2023 10:00[place] [address] Infect. Disease Progress Note Signed Patient: Mojgan Pérez MR#: [id number] : 1955 Acct:[id number] Age/Sex: 68 / F Adm Date: 4 Loc: Room: [address] [place] [address] Type: ADM IN Attending Dr: Modesto Aquino [...] 400 Mg Tablet) 400 mg PO BID [facility] Last Admin: 04/14/24 08:11 Dose: 400 mg Albuterol (Albuterol Hfa 60 Puff/8 Gram Inhaler) 2 puff INHALATION Q4H PRN PRN Reason: Shortness Of Breath Stop: 04/10/25 23:14 Albuterol (Albuterol Neb 2.5 Mg/3 Ml Vial.Neb) 2.5 mg INHALATION Q6HR [facility] Stop: 04/11/25 00:00 Last Admin: 04/14/24 05:50 Dose: 2.5 mg Atorvastatin Calcium (Atorvastatin 80 Mg Tablet) 80 mg PO DAILY [facility] Stop: 04/11/25 08:59 Last Admin: 04/14/24 08:11 Dose: 80 mg Benzonatate (Benzonatate 100 Mg Capsule) 100 mg PO TID PRN PRN Reason: Cough Stop: 04/13/25 17:24 Last Admin: 04/13/24 17:36 Dose: 100 mg Carvedilol (Carvedilol 12.5 Mg Tablet) 12.5 mg PO BID.WITH.MEALS [facility] Stop: 04/11/25 07:59 Cyanocobalamin (Cyanocobalamin 1,000 Mcg Tablet) 1,000 mcg PO DAILY [facility] Stop: 04/11/25 08:59 Last Admin: 04/14/24 08:11 Dose: 1,000 mcg Cyclobenzaprine HCl (Cyclobenzaprine 10 Mg Tablet) 10 mg PO Q8HR PRN PRN Reason: Muscle Spasm Stop: 04/12/25 13:36 Epinephrine HCl (Epinephrine/Pf 1 Mg/Ml Ampul) 0.3 mg IM ONCE PRN PRN Reason: anaphylaxis Fluticasone Propionate (Fluticasone Propionate Paulina 120 Paulina/16 Gm Bottle) 1 spray INTRANASAL DAILY PRN PRN Reason: Allergy Symptoms Stop: 04/10/25 23:14 Gabapentin (Gabapentin 400 Mg Capsule) 400 mg PO TID [facility] Stop: 04/11/25 08:59 Hydromorphone HCl (Hydromorphone 0.5 Mg/0.5 Ml Syringe) 0.5 mg IV-PUSH Q2H PRN PRN Reason: Pain Last Admin: 04/13/24 00:13 Dose: 0.5 mg Albumin Human (Albuminar-25) 25 gm in 100 mls @ 200 mls/hr IV Q8H [facility] Stop: 04/12/25 15:59 Last Admin: 04/14/24 08:26 Dose: 200 mls/hr Cefepime HCl (Maxipime) 2 gm in 50 mls @ 12.5 mls/hr IV Q8H [facility] Lactulose (Lactulose 20 Gm/30 Ml Udc) 20 gm PO TID [facility] Stop: 04/14/25 13:59 Melatonin (Melatonin 3 Mg Tablet) 3 mg PO QHS [facility] Stop: 04/11/25 21:59 Last Admin: 04/13/24 22:03 [...] 40 Mg Tablet.Dr) 40 mg PO BID [facility] Stop: 04/11/25 08:59 Last Admin: 04/14/24 08:11 Dose: 40 mg Potassium Chloride (Potassium Chloride Er 10 Meq Capsule.Er) 10 meq PO DAILY [facility] Stop: 04/11/25 08:59 Last Admin: 04/14/24 08:11 [...] signed by MD MARISEL Hughes> 04/14/24 1000 [facility] Work Phone: 1([phone] 329-608706-12-2024 Consult note Author João Belcher [facility] April 13, 2024 3:26pmNote Date/TimeJune 2023 11:57[place] [address] Cardiology Consult Note Signed Patient: Mojgan Pérez MR#: [id number] : 1955 Acct:[id number] Age/Sex: 68 / F Adm Date: 4 Loc: Room: [address] [place] [address] Type: ADM IN Attending Dr: Modesto Aquino MD Copies to: MD João Amezquita MD Obaydah M Daromar, MD~ Cardiology HPI History of Present Illness Consult Date: 04/13/24 HPI: Ms. Pérez is a 68-year-old female with a past medical history below who is admitted to [facility] since 04/10/2024 due to septic shocksecondary to [...] negative unless noted below or in HPI [facility] Medical History DM2 (diabetes mellitus, type 2) Smoldering multiple myeloma (SMM) Neuropathy Hypertension Multiple myeloma Temporary low platelet count COPD (chronic obstructive pulmonary disease) PFT: 02/24/2024 -FEV1/FVC: 70% -FEV1: 87% -FVC: 95% -MXH33-07%: 60% -Bronchodilator response: None -RV: 118% -T% [...] spray 1 spray intranasal Q2-3M PRN opioid /20/24 [History Confirmed 04/10/24] sumatriptan succinate 50 mg [...] Lymph # (Auto) 0.4 L (1.00-4.8) x10E3/uL Briscoe # (Auto) 0.7 (0.0-0.8) x10E3/uL Eos # [...] 200 ml @ 200 mls/hr IV Q8H [facility] Rx#: [id number] Cefepime 2Gm-*Ns* 2 gm In 50 ml 50 / 50 @ 12.5 mls/hr IV Q12H [facility] Rx#: [id number] Sodium Chloride 0.9% 1,000 ml 1 1000 / 1000 ,000 ml @ 100 mls/hr IV .Q10H [facility] Rx#:[id number] Oral 240 / 240 Other: Total Intake (Blood Product) Cumulative Amt Irradiated Leuko Red Rbc Unit 0 [id number] # Unmeasured Voids 1 3 Date of [...] signed by João Belcher MD> 04/13/24 1526 [facility] Work Phone: 1(651) 742-794806-12-2024 Progress note Author Modesto Aquino [facility] April 13, 2024 3:19pmNote Date/TimeJune 2023 3:13[place] [address] Hospitalist Progress Note Signed Patient: Mojgan Pérez MR#: [id number] : 1955 Acct:[id number] Age/Sex: 68 / F Adm Date: 4 Loc: Room: [address] [place] [address] Type: ADM IN Attending Dr: Modesto Aquino [...] Propionate 1 spray 04/10/24 23:15 Fluticasone Propionate Paulina 120 Paulina/16 Gm Bottle INTRANASAL 04/10/25 23:14 DAILY PRN [...] Documented By: Modesto Aquino MD 04/13/24 15 Signed By: <Electronically signed by Modesto Aquino MD> 04/13/24 8212 [facility] Work Phone: 1(269) 508-227106-12-2024 Progress note Author Ritchie Mcmillan [facility] April 13, 2024 2:57pmNote Date/TimeJune 2023 9:02[place], [place] [address] Pulmonology Progress Note Signed Patient: Mojgan Pérez MR#: [id number] : 1955 Acct:[id number] Age/Sex: 68 / F Adm Date: 4 Loc: Room: [address] [place] [address] Type: ADM IN Attending Dr: Modesto Aquino [...] <Electronically signed by MD Ritchie Mcmillan> 04/13/24 6297 [facility] Work Phone: 1([phone]) [phone] Progress note Author Garcia Sanchez [facility] April 13, 2024 2:54pmNote Date/TimeJune 2023 2:52[place] [address] Gastroenterology PN Signed Patient: Mojgan Pérez MR#: [id number] : 1955 Acct:[id number] Age/Sex: 68 / F Adm Date: 4 Loc: Room: [address] [place] [address] Type: ADM IN Attending Dr: Modesto Aquino MD Copies to: MD Garcia Amezquita DO Obaydah M Daromar, MD~ Date of Service: 04/13/2024 Subjective Subjective [...] Propionate 1 spray 04/10/24 23:15 Fluticasone Propionate Paulina 120 Paulina/16 Gm Bottle INTRANASAL 04/10/25 23:14 DAILY PRN [...] % (Auto) 4.8 % (.) 04/13/24 05:23 Briscoe % (Auto) 8.2 % (.) 04/13/24 05:23 [...] % (Auto) 86.3 Lymph % (Auto) 4.8 [place]iscoe % (Auto) 8.2 Eos % (Auto) 0.6 Baso % (Auto) 0.1 Nucleat RBC Rel Count 0.1 Neut # (Auto) 7.4 Lymph # (Auto) 0.4 L [place] # (Auto) 0.7 Eos # (Auto) 0.1 [...] See Detail Documented By: Garcia Sanchez DO 04/13/241449 Signed By: <Electronically signed by Garcia Sanchez DO> 04/13/24 1454 [facility] Work Phone: 1([phone]) 465-970806-12-2024 Progress note Author Lakeisha Miller [facility] April 13, 2024 9:20amNote Date/TimeJune 2023 9:19[place] [address] Infect. Disease Progress Note Signed Patient: Mojgan Pérez MR#: [id number] : 1955 Acct:[id number] Age/Sex: 68 / F Adm Date: 4 Loc: Room: [address] [place] [address] Type: ADM IN Attending Dr: Modesto Aquino [...] @ 200 mls/hr IV Q8H [facility] Rx#: [id number] Cefepime 2Gm-*Ns* 2 gm In 50 ml 50 / 50 @ 12.5 mls/hr IV Q12H [facility] Rx#: [id number] Sodium Chloride 0.9% 1,000 ml 1 1000 / 1000 ,000 ml @ 100 mls/hr IV .Q10H [facility] Rx#:[id number] Oral 240 / 240 Other: # Unmeasured [...] 400 Mg Tablet) 400 mg PO BID [facility] Last Admin: 04/13/24 08:17 Dose: 400 mg Albuterol (Albuterol Hfa 60 Puff/8 Gram Inhaler) 2 puff INHALATION Q4H PRN PRN Reason: Shortness Of Breath Stop: 04/10/25 23:14 Albuterol (Albuterol Neb 2.5 Mg/3 Ml Vial.Neb) 2.5 mg INHALATION Q6HR [facility] Stop: 04/11/25 00:00 Last Admin: 04/13/24 06:30 Dose: 2.5 mg Atorvastatin Calcium (Atorvastatin 80 Mg Tablet) 80 mg PO DAILY [facility] Stop: 04/11/25 08:59 Last Admin: 04/13/24 08:17 Dose: 80 mg Carvedilol (Carvedilol 12.5 Mg Tablet) 12.5 mg PO BID.WITH.MEALS [facility] Stop: 04/11/25 07:59 Cyanocobalamin (Cyanocobalamin 1,000 Mcg Tablet) 1,000 mcg PO DAILY [facility] Stop: 04/11/25 08:59 Last Admin: 04/13/24 08:18 Dose: 1,000 mcg Cyclobenzaprine HCl (Cyclobenzaprine 10 Mg Tablet) 10 mg PO Q8HR PRN PRN Reason: Muscle Spasm Stop: 04/12/25 13:36 Epinephrine HCl (Epinephrine/Pf 1 Mg/Ml Ampul) 0.3 mg IM ONCE PRN PRN Reason: anaphylaxis Fluticasone Propionate (Fluticasone Propionate Paulina 120 Paulina/16 Gm Bottle) 1 spray INTRANASAL DAILY PRN PRN Reason: Allergy Symptoms Stop: 04/10/25 23:14 Gabapentin (Gabapentin 400 Mg Capsule) 400 mg PO TID [facility] Stop: 04/11/25 08:59 Hydromorphone HCl (Hydromorphone 0.5 Mg/0.5 Ml Syringe) 0.5 mg IV-PUSH Q2H PRN PRN Reason: Pain Last Admin: 04/13/24 00:13 Dose: 0.5 mg Norepinephrine Bitartrate (Levophed) 16 mg in 250 mls @ 1.875 mls/hr IV .Q24H [facility]; Protocol Stop: 04/11/25 08:14 Last Titration: 04/13/24 08:10 Dose: 3 mcg/min, 2.81 mls/hr Cefepime HCl (Maxipime) 2 gm in 50 mls @ 12.5 mls/hr IV Q12H [facility] Last Admin: 04/13/24 00:12 Dose: 12.5 mls/hr Albumin Human (Albuminar-25) 25 gm in 100 mls @ 200 mls/hr IV Q8H [facility] Stop: 04/12/25 15:59 Last Admin: 04/13/24 08:17 Dose: 200 mls/hr Amiodarone HCl 450 mg/ (Dextrose) 250 mls @ 33.333 mls/hr IV .Q7H30M [facility]; Protocol Stop: 04/14/24 02:59 Last Admin: 04/13/24 [...] Gm/30 Ml Udc) 10 gm PO TID [facility] Stop: 04/11/25 01:19 Last Admin: 04/13/24 08:17 Dose: 10 gm Melatonin (Melatonin 3 Mg Tablet) 3 mg PO QHS [facility] Stop: 04/11/25 21:59 Last Admin: 04/12/24 22:33 [...] 40 Mg Tablet.Dr) 40 mg PO BID [facility] Stop: 04/11/25 08:59 Last Admin: 04/13/24 08:18 Dose: 40 mg Potassium Chloride (Potassium Chloride Er 10 Meq Capsule.Er) 10 meq PO DAILY [facility] Stop: 04/11/25 08:59 Last Admin: 04/13/24 08:18 [...] <Electronically signed by MD Lakeisha Miller> 04/13/24919 [facility] Work Phone: [phone] Progress note Author Ritchie Mcmillan [facility] April 12, 2024 8:30pmNote Date/TimeJune 2023 8:54[place] [address] Pulmonology Progress Note Signed Patient: Mojgan Pérez MR#: [id number] : 1955 Acct:[id number] Age/Sex: 68 / F Adm Date: 4 Loc: Room: [address] [place] [address] Type: ADM IN Attending Dr: Modesto Aquino [...] midodrine. Documented By: Ritchie Mcmillan MD [id number] 0854 Signed By: <Electronically signed by MD Ritchie Mcmillan> 04/12/[address] [place] [address] Work Phone: 1([phone]) [phone] Progress note Author Garcia Sanchez [facility] April 12, 2024 3:11pmNote Date/TimeJune 2023 3:05[place] [address] Gastroenterology PN Signed Patient: Mojgan Pérez MR#: [id number] : 1955 Acct:[id number] Age/Sex: 68 / F Adm Date: 4 Loc: Room: [address] [place] [address] Type: ADM IN Attending Dr: Modesto Aquino [...] Cannula 2 04/12/24 12:00 04/12/24 14:00 04/12/24 14:04/12/24 14:04/12/24 14:00 04/12/24 14:00 04/12/24 14:00 Narrative: General [...] Propionate 1 spray 04/10/24 23:15 Fluticasone Propionate Paulina 120 Paulina/16 Gm Bottle INTRANASAL 04/10/25 23:14 DAILY PRN [...] along Documented By: Garcia Sanchez DO 04/12/24 1504 Signed By: <Electronically signed by Garcia Sanchez DO> 04/12/24 1511 [facility] Work Phone: 1([phone]) [phone] Progress note Author Modesto Aquino [facility] April 12, 2024 1:46pmNote Date/TimeJune 2023 1:36[place] [address] Hospitalist Progress Note Signed Patient: Mojgan Pérez MR#: [id number] : 1955 Acct:[id number] Age/Sex: 68 / F Adm Date: 4 Loc: Room: [address] [place] [address] Type: ADM IN Attending Dr: Modesto Aquino [...] Propionate 1 spray 04/10/24 23:15 Fluticasone Propionate Paulina 120 Paulina/16 Gm Bottle INTRANASAL 04/10/25 23:14 DAILY PRN [...] <Electronically signed by Modesto Aquino MD> 04/12/[address] [place] [address] Work Phone: 1(502) 750-730306-11-2024 Progress note Author Lakeisha Miller [facility] April 12, 2024 10:08amNote Date/TimeJune 2023 9:39[place] [address] Infect. Disease Progress Note Signed Patient: Mojgan Pérez MR#: [id number] : 1955 Acct:[id number] Age/Sex: 68 / F Adm Date: 4 Loc: Room: [address] [place] [address] Type: ADM IN Attending Dr: Modesto Aquino [...] 400 Mg Tablet) 400 mg PO BID [facility] Last Admin: 04/12/24 08:44 Dose: 400 mg Albuterol (Albuterol Hfa 60 Puff/8 Gram Inhaler) 2 puff INHALATION Q4H PRN PRN Reason: Shortness Of Breath Stop: 04/10/25 23:14 Albuterol (Albuterol Neb 2.5 Mg/3 Ml Vial.Neb) 2.5 mg INHALATION Q6HR [facility] Stop: 04/11/25 00:00 Last Admin: 04/12/24 05:24 Dose: Not Given Atorvastatin Calcium (Atorvastatin 80 Mg Tablet) 80 mg PO DAILY [facility] Stop: 04/11/25 08:59 Last Admin: 04/12/24 08:44 Dose: 80 mg Carvedilol (Carvedilol 12.5 Mg Tablet) 12.5 mg PO BID.WITH.MEALS [facility] Stop: 04/11/25 07:59 Cyanocobalamin (Cyanocobalamin 1,000 Mcg Tablet) 1,000 mcg PO DAILY [facility] Stop: 04/11/25 08:59 Last Admin: 04/12/24 08:44 Dose: 1,000 mcg Epinephrine HCl (Epinephrine/Pf 1 Mg/Ml Ampul) 0.3 mg IM ONCE PRN PRN Reason: anaphylaxis Fluticasone Propionate (Fluticasone Propionate Paulina 120 Paulina/16 Gm Bottle) 1 spray INTRANASAL DAILY PRN PRN Reason: Allergy Symptoms Stop: 04/10/25 23:14 Gabapentin (Gabapentin 400 Mg Capsule) 400 mg PO TID [facility] Stop: 04/11/25 08:59 Hydromorphone HCl (Hydromorphone 0.5 Mg/0.5 Ml Syringe) 0.5 mg IV-PUSH Q2H PRN PRN Reason: Pain Last Admin: 04/11/24 12:41 Dose: 0.5 mg Norepinephrine Bitartrate (Levophed) 16 mg in 250 mls @ 1.875 mls/hr IV .Q24H [facility]; Protocol Stop: 04/11/25 08:14 Last Titration: 04/12/24 06:29 Dose: 2 mcg/min, 1.88 mls/hr Sodium Chloride (0.9 % Sodium Chloride) 500 mls @ 20 mls/hr IV PROTOCOL PRN PRN Reason: BLOOD TRANSFUSION Stop: 04/12/24 16:16 Cefepime HCl (Maxipime) 2 gm in 50 mls @ 12.5 mls/hr IV Q12H [facility] Lactulose (Lactulose 20 Gm/30 Ml Udc) 10 gm PO TID [facility] Stop: 04/11/25 01:19 Last Admin: 04/12/24 08:44 Dose: 10 gm Melatonin (Melatonin 3 Mg Tablet) 3 mg PO QHS [facility] Stop: 04/11/25 21:59 Last Admin: 04/11/24 21:03 [...] for now. Documented By: Lakeisha Miller MD 04/12/24 0930 Signed By: <Electronically signed by MD Lakeisha Miller> 04/12/24 1008 <Electronically signed by MD MARISEL Hughes> 04/12/24 0939 [facility] Work Phone: 1(684) 534-738506-11-2024 Telephone encounter Note* Telephone Encounter - Ro Cruz RN - 04/12/2024 10:35 AM EDT No sooner appointments. [facility]06-11-2024 Miscellaneous Notes* Telephone Encounter - Ro Cruz [...] calling: Self Call patient at: at home [phone] (home) [phone] (cell) Was an appointment scheduled: No Closing statement: Results or non-symptom based questions: Thank you for calling [facility], your call will be returned within the next business day. Melisa Colvin documented in this encounterSouthern [facility] Consult note Author Ritchie Mcmillan [facility] April 11, 2024 4:59pmNote Date/TimeJun2023 4:16pm[place] [address] Pulmonology Consult Note Signed Patient: Mojgan Pérez MR#: [id number] : 1955 Acct:[id number] Age/Sex: 68 / F Adm Date: 4 Loc: Room: [address] [place] [address] Type: ADM IN Attending Dr: Modesto Aquino MD Copies to: MD Ritchie Amezquita MD Obaydah M Daromar, MD~ HPI Date/Time of Consultation: Date of Service: 04/11/2024 Time of Service: 16:10 Consulting Provider: Ritchie Mcmillan Requesting Provider: Modesto Aquino History of Present Illness History of present [...] negative unless noted below or in HPI [facility] Medical History DM2 (diabetes mellitus, type 2) Smoldering multiple myeloma (SMM) Neuropathy Hypertension Multiple myeloma Temporary low platelet count COPD (chronic obstructive pulmonary disease) PFT: 02/24/2024 -FEV1/FVC: 70% -FEV1: 87% -FVC: 95% -NFH43-86%: 60% -Bronchodilator response: None -RV: 118% -T% [...] spray 1 spray intranasal Q2-3M PRN opioid eultlwnq70/20/24 [History Confirmed 04/10/24] sumatriptan succinate 50 mg [...] 01/21/24 FINDINGS: SUPPORT DEVICES: None POSTSURGICAL CHANGES: Pmcmxn-c-Mlpu unchanged HEART: Within normal limits PULMONARY LICHA: [...] <Electronically signed by MD Ritchie Mcmillan> 04/11/24 1659 [facility] Work Phone: 1([phone]) 144-272006-10-2024 Consult note Author Garcia Sanchez [facility] April 11, 2024 2:34pmNote Date/TimeJun2023 12:49pmTrevor V[place] [id number] Gastroenterology Consult Note Signed Patient: Mojgan Pérez MR#: [id number] : 1955 Acct:[id number] Age/Sex: 68 / F Adm Date: 4 Loc: Room: [address] [place] [address] Type: ADM IN Attending Dr: Modesto Aquino MD Copies to: MD Garcia Amezquita, DO Modesto Aquino MD~ HPI Data [...] bruising, bleeding. Allergic/Immunologic: Denies urticaria, hay fever. [facility] Medical History DM2 (diabetes mellitus, type 2) Smoldering multiple myeloma (SMM) Neuropathy Hypertension Multiple myeloma Temporary low platelet count COPD (chronic obstructive pulmonary disease) PFT: 02/24/2024 -FEV1/FVC: 70% -FEV1: 87% -FVC: 95% -PAM35-65%: 60% -Bronchodilator response: None -RV: 118% -T% [...] spray 1 spray intranasal Q2-3M PRN opioid xmiiicha09/20/24 [History Confirmed 04/10/24] sumatriptan succinate 50 mg [...] % (Auto) N/A Lymph % (Auto) N/A [place] % (Auto) N/A Eos % (Auto) N/A Baso % (Auto) N/A Nucleat RBC Rel Count N/A Neut # (Auto) N/A Lymph # (Auto) N/A [place] # (Auto) N/A Eos # (Auto) N/A [...] Appearance Clear Urine pH 5.5 Ur Specific [place] 1.023 Urine Protein 20 H Urine Glucose [...] MPV Neut % (Auto) Lymph % (Auto) [place] % (Auto) Eos % (Auto) Baso % (Auto) Nucleat RBC Rel Count Neut # (Auto) Lymph # (Auto) [place] # (Auto) Eos # (Auto) Baso # [...] Color Urine Appearance Urine pH Ur Specific [place] Urine Protein Urine Glucose (UA) Urine Ketones [...] % (Auto) N/A Lymph % (Auto) N/A [place] % (Auto) N/A Eos % (Auto) N/A Baso % (Auto) N/A Nucleat RBC Rel Count N/A Neut # (Auto) N/A Lymph # (Auto) N/A [place] # (Auto) N/A Eos # (Auto) N/A [...] Color Urine Appearance Urine pH Ur Specific [place] Urine Protein Urine Glucose (UA) Urine Ketones [...] signed by Garcia Sanchez DO> 04/11/24 1434 [facility] Work Phone: 1([phone]) 808-679106-10-2024 Progress note Author Modesto Aquino [facility] April 11, 2024 12:25pmNote Date/TimeJune 2023 12:24pm[place] [address] Hospitalist Progress Note Signed Patient: Mojgan Pérez MR#: [id number] : 1955 Acct:[id number] Age/Sex: 68 / F Adm Date: 4 Loc: Room: [address] [place] [address] Type: ADM IN Attending Dr: Modesto Aquino [...] 04/11/24 10:00 04/11/24 10:00 04/11/24 10:00 Narrative: Const General: ill appearing HEENT [...] Propionate 1 spray 04/10/24 23:15 Fluticasone Propionate Paulina 120 Paulina/16 Gm Bottle INTRANASAL 04/10/25 23:14 DAILY PRN [...] <Electronically signed by Modesto Aquino MD> 04/11/24 0042 [facility] Work Phone: 1([phone] 538-559406-10-2024 Consult note Author Lakeisha Miller [facility] April 11, 2024 9:53amNote Date/TimeJun2023 9:45am[place] [address] Infect. Disease Consult Note Signed Patient: Mojgan Pérez MR#: [id number] : 1955 Acct:[id number] Age/Sex: 68 / F Adm Date: 4 Loc: Room: [address] [place] [address] Type: ADM IN Attending Dr: Modesto Aquino [...] negative unless noted below or in HPI [facility] Medical History DM2 (diabetes mellitus, type [...] 400 Mg Tablet) 400 mg PO BID [facility] Albuterol (Albuterol Hfa 60 Puff/8 Gram Inhaler) 2 puff INHALATION Q4H PRN PRN Reason: Shortness Of Breath Stop: 04/10/25 23:14 Albuterol (Albuterol Neb 2.5 Mg/3 Ml Vial.Neb) 2.5 mg INHALATION Q6HR [facility] Stop: 04/11/25 00:00 Last Admin: 04/11/24 05:25 Dose: 2.5 mg Atorvastatin Calcium (Atorvastatin 80 Mg Tablet) 80 mg PO DAILY [facility] Stop: 04/11/25 08:59 Carvedilol (Carvedilol 12.5 Mg Tablet) 12.5 mg PO BID.WITH.MEALS [facility] Stop: 04/11/25 07:59 Cyanocobalamin (Cyanocobalamin 1,000 Mcg Tablet) 1,000 mcg PO DAILY [facility] Stop: 04/11/25 08:59 Epinephrine HCl (Epinephrine/Pf 1 Mg/Ml Ampul) 0.3 mg IM ONCE PRN PRN Reason: anaphylaxis Fluticasone Propionate (Fluticasone Propionate Paulina 120 Paulina/16 Gm Bottle) 1 spray INTRANASAL DAILY PRN PRN Reason: Allergy Symptoms Stop: 04/10/25 23:14 Gabapentin (Gabapentin 400 Mg Capsule) 400 mg PO TID [facility] Stop: 04/11/25 08:59 Hydromorphone HCl (Hydromorphone 0.5 Mg/0.5 Ml Syringe) 0.5 mg IV-PUSH Q2H PRN PRN Reason: Pain Last Admin: 04/11/24 05:11 Dose: 0.5 mg Cefepime HCl (Maxipime) 2 gm in 50 mls @ 12.5 mls/hr IV Q8H [facility] Norepinephrine Bitartrate (Levophed) 16 mg in 250 mls @ 1.875 mls/hr IV .Q24H [facility]; Protocol Stop: 04/11/25 08:14 Lactulose (Lactulose 20 Gm/30 Ml Udc) 10 gm PO TID [facility] Stop: 04/11/25 01:19 Last Admin: 04/11/24 01:48 Dose: 10 gm Melatonin (Melatonin 3 Mg Tablet) 3 mg PO QHS [facility] Stop: 04/11/25 21:59 Naloxone HCl (Naloxone Hcl [...] mg PO BID [facility] Stop: 04/11/25 08:59 Potassium Chloride (Potassium Chloride Er 10 Meq Capsule.Er) 10 meq PO DAILY [facility] Stop: 04/11/25 08:59 Sodium Chloride (Sodium Chloride [...] signed by MD MARISEL Hughes> 04/11/24 0945 [facility] Work Phone: 1(232) 741-756906-10-2024 Telephone encounter Note* Telephone Encounter - Melisa [...] calling: Self Call patient at: at home [phone] (home) [phone] (cell) Was an appointment scheduled: No Closing statement: Results or non-symptom based questions: Thank you for calling [facility], your call will be returned within the next business day. Melisa Colvin [facility]06-10-2024 History and physical note Author Vicente Linton [facility] April 11, 2024 5:53amNote Date/TimeJune 2023 11:27pm[place] [address] Hospitalist H&P Signed with Addenda Patient: Mojgan Pérez MR#: [id number] : 1955 Acct:[id number] Age/Sex: 68 / F Adm Date: 4 Loc: Room: [address] [place] [address] Type: ADM IN Attending Dr: Vicente Linton DO Copies to: MD Juan J Amezquita MD, RES Vicente Linton DO~ ADDENDUM1 Please add SBP to assessment based on paracentesis results. Total nucleated [id number]. Currently on Ceftriaxone 2 g daily. Addendum Documented By: MD MARISEL Brown 04/11/24 0522 Addendum Signed By: <Electronically signed by MD MARISEL Brown> 04/11/24 0522 <Electronically signed by Vicente Linton DO> 04/11/24 0553 HPI DATE OF EXAMINATION: 04/10/24 CHIEF COMPLAINT: Abd pain HISTORY OF PRESENT ILLNESS: Ms. Mojgan Pérez is a 68-year-old female presents to ED with acutely altered mental status improved on IVF, Rocephin. Past medical history of multiple myeloma immunosuppressed compliant with biweekly chemo and monthly IVIG in [facility] in cirrhosis, chronic thrombocytopenia, patient examined bedsideresting [...] Reports easy bruising Allergic/Immunologic Allergic/Immunologic: Reports wheezing [facility] Medical History DM2 (diabetes mellitus, type [...] spray 1 spray intranasal Q2-3M PRN opioid /20/24 [History Confirmed 04/10/24] sumatriptan succinate 50 mg [...] 17:20 Lymph % (Auto) N/A 04/10/24 17:20 [place]isco[place] % (Auto) N/A 04/10/24 17:20 Eos % (Auto) N/A 04/10/24 17:20 Baso % (Auto) N/A 04/10/24 17:20 Nucleat RBC Rel Count N/A 04/10/24 17:20 Neut # (Auto) N/A 04/10/24 17:20 Lymph # (Auto) N/A 04/10/24 17:20 [place]isco[place] # (Auto) N/A 04/10/24 17:20 Eos # [...] pH 5.5 (5.0-9.0) 04/10/24 20:36 Ur Specific [place] 1.023 (1.001-1.030) 04/10/24 20:36 Urine Protein 20 [...] signed by MD MARISEL Brown> 04/11/24 0127 [facility] Work Phone: [phone]) 103-695206-10-2024 [facility] History of Present illness Narrative* Supa Lindquist MD PhD - 03/22/2024 1:00 PM EDT HEMATOLOGY/ONCOLOGY CLINIC NOTE HPI: Continues to do well. Cough improved with cessation of lisinopril and inhaler treatment. Oncology History and Treatment synopsis Oncology History Overview Note Referral from Dr. Marinelli at [facility]. MGUS since 2005 Followed at [facility] by Dr. Kumari, [...] radiation field this may not be entirely policy services representative. Also clonal evolution in the marrow [...] + on 09/12/23. Treated with Paxlovid in [place] Plan to reassess and proceed with C3D1 [...] tablet (80 mg) by mouth once daily. ceamvzxfmm-fghwqyxm-atbiycmevn (Breztri Aerosphere) 160-9-4.8 mcg/actuation HFA aerosol inhaler [...] and results review, face time and charting. @QuickcueSTEVE@ documented in this [facility] Work Phone: [phone]) 545-620904-23-2024 History of Present illness Narrative* Supa Lindquist MD PhD - 02/23/2024 9:10 AM EDT HEMATOLOGY/ONCOLOGY CLINIC NOTE HPI: Has recently restarted teclistamab after long interrruption for covid and other pneumonia. Feels well, except for persistent cough Oncology History and Treatment synopsis Oncology History Overview Note Referral from Dr. Marinelli at [facility]. MGUS since 2005 Followed at [facility] by Dr. Kumari, [...] radiation field this may not be entirely policy services representative. Also clonal evolution in the marrow [...] + on 09/12/23. Treated with Paxlovid in [place] Plan to reassess and proceed with C3D1 [...] and results review, face time and charting. @AMADEO@ [facility] Work Phone: [phone]) 202-524704-14-2024 Evaluation + Plan note* Assessment & Plan Note - MATT Mendosa - 02/14/2024 6:23 PM EDTAssociated Problem(s): Immunodeficiency disorder (Multi) Infection prophylaxis VZV: Acyclovir 400 mg PO BID PJP: Trimethoprim-sulfamethoxazole 800-160 mg PO 3x weekly Hypogammaglobulinemia IVIG given 09/22/23, 10/29/23 ([facility]) 12/08/23 01/12/24 02/12/24. Cont monthly. [facility] Work Phone: [phone]) 268-801304-14-2024 Miscellaneous Notes* Assessment & Plan Note - MATT Mendosa - 02/14/2024 6:23 PM EDTAssociated Problem(s): Immunodeficiency disorder (Multi) Infection prophylaxis VZV: Acyclovir 400 mg PO BID PJP: Trimethoprim-sulfamethoxazole 800-160 mg PO 3x weekly Hypogammaglobulinemia IVIG given 09/22/23, 10/29/23 ([facility]) 12/08/23 01/12/24 02/12/24. Cont monthly. documented in this [facility] Work Phone: [phone] 483-914904-09-2024 History of Present illness Narrative* Lisette Catracho Perkins, KEITH-BINDERY MACHINE SETTER - 02/09/2024 10:00 AM EDT Patient ID: [...] confirm antibiotic allergies. Interested in transitioning teclistimabto [facility] with DR Marinelli. Oncology History Overview Note Referral from Dr. Marinelli at [facility]. MGUS since 2005 Followed at [facility] by Dr. Kumari, [...] radiation field this may not be entirely policy services representative. Also clonal evolution in the marrow [...] + on 09/12/23. Treated with Paxlovid in [place] Plan to reassess and proceed with C3D1 [...] 3x weekly Hypogammaglobulinemia IVIG given 09/22/23, 10/29/23 ([facility]) 12/08/23 01/12/24 02/12/24. Cont monthly. Liver cirrhosis secondary to KAPADIA (nonalcoholic steatohepatitis) (Multi) K75.81, K74.60 Multiple myeloma not having achieved remission ([facility]) - Primary C90.00 Relevant Orders Vascular US lower extremity venous duplex right CBC and Auto Differential Comprehensive Metabolic Panel Serum Protein Electrophoresis [place]/Lambda Free Light Chain, Serum Immunoglobulins (IgG, IgA, IgM) Subjective History of Present Illness: Mrs Pérez presents to the clinic today with her daughter. Feels well enough to restart weekly teclistimab. When will I be able to transition treatment to [facility]? Cough better. Yellowish sputum. Resolved chunky green orange. No fever. No SOB. More tired walking.Hernia seems bigger with coughing. 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 R Leg swollen new for [...] Lindquist (Weekly through 07/05/24) documented in this [facility] Work Phone: 1([phone]) 455-853203-17-2024 Evaluation note* Author Julissa Ramos [facility] RehabilitationAuthoredMercy Health St[facility] 2023 11:03amThe above note written by Julissa Ramos MA acting as human recorder, note dictated by Katie Holder APRN, PARK MANAGER-C [facility] Work Phone: [phone]) 855-591803-12-2024 History of Present illness Narrative* MATT Mendosa - 01/12/2024 1:30 PM EDT Patient ID: Mojgan Pérez is a 68 y.o. female. Referring Physician: ONC Dr Lindquist Primary Care Provider: Fabiola Marinelli MD Assessment/Plan 01/12/24 Recovered from 2nd Covid infection. Residual cough. 4 weeks from last teclistamab dose. Resume today. Monthly IVIG today too. Oncology History Overview Note Referral from Dr. Marinelli at [facility]. MGUS since 2005 Followed at [facility] by Dr. Kumari, [...] radiation field this may not be entirely policy services representative. Also clonal evolution in the marrow [...] and K/L chain ratio pending Multiple myeloma ([facility]) 08/03/2023 Initial Diagnosis Multiple myeloma ([facility]) 08/04/2023 - 09/08/2023 Chemotherapy Teclistamab ramp-up (08/04-08/06-08/09/23): complicated grade-I CRS (fevers) and ICANS (suzanna ICE score 8/10) C2D1 teclistamab weekly (08/17/23, 08/25/23, 09/01/23, 09/08/23). Changed threshold notification for plt <35. 09/08/23 K/L ratio 0.01; IgG 338. SPEP pending. C3D1 teclisitimab weekly beginning 09/15/23. (Held 09/15, 09/22 09/29 10/06 due Covid + on 09/12/23. Treated with Paxlovid in [place] Plan to reassess and proceed with C3D1 [...] Cycles Multiple myeloma not having achieved remission ([facility]) 10/20/2023 Initial Diagnosis Multiple myeloma not having achieved remission ([facility]) Problem List Items Addressed This Visit ICD-10-CM Peripheral neuropathy G62.9 Depression F32.A Relevant Medications DULoxetine (Cymbalta) [address] capsule Immunodeficiency disorder ([facility]) D84.9 Infection prophylaxis VZV: Acyclovir 400 mg PO BID PJP: Trimethoprim-sulfamethoxazole 800-160 mg PO 3x weekly Hypogammaglobulinemia IVIG given 09/22/23, 10/29/23 ([facility]) and 12/08/23. Plan next today 01/12/24. Liver [...] on Tuesdays through May. documented in this [facility] Work Phone: [phone]) 140-621003-11-2024 Evaluation + Plan note* Assessment & Plan Note - MATT Mendosa - 01/11/2024 6:18 PM EDTAssociated Problem(s): Immunodeficiency disorder (CMS/HCC) Infection prophylaxis VZV: Acyclovir 400 mg PO BID PJP: Trimethoprim-sulfamethoxazole 800-160 mg PO 3x weekly Hypogammaglobulinemia IVIG given 09/22/23, 10/29/23 ([facility]) and 12/08/23. Plan next today 01/12/24. [facility] Work Phone: [phone] 610-278403-11-2024 Miscellaneous Notes* Assessment & Plan Note - MATT Mendosa - 01/11/2024 6:18 PM EDTAssociated Problem(s): Immunodeficiency disorder (CMS/HCC) Infection prophylaxis VZV: Acyclovir 400 mg PO BID PJP: Trimethoprim-sulfamethoxazole 800-160 mg PO 3x weekly Hypogammaglobulinemia IVIG given 09/22/23, 10/29/23 ([facility]) and 12/08/23. Plan next today 01/12/24. [facility] Work Phone: [phone] 893-252003-03-2024 Evaluation + Plan note* Assessment & Plan Note - MATT Mendosa - 01/03/2024 11:33 AM ESTAssociated Problem(s): Immunodeficiency disorder (CMS/HCC) Infection prophylaxis VZV: Acyclovir 400 mg PO BID PJP: Trimethoprim-sulfamethoxazole 800-160 mg PO 3x weekly Hypogammaglobulinemia IVIG given 09/22/23, 10/29/23 ([facility]) and 12/08/23. Plan next dose 01/05/24. [facility] Work Phone: [phone] 190-748203-03-2024 Miscellaneous Notes* Assessment & Plan Note - MATT Mendosa - 01/03/2024 11:33 AM ESTAssociated Problem(s): Immunodeficiency disorder (CMS/HCC) Infection prophylaxis VZV: Acyclovir 400 mg PO BID PJP: Trimethoprim-sulfamethoxazole 800-160 mg PO 3x weekly Hypogammaglobulinemia IVIG given 09/22/23, 10/29/23 ([facility]) and 12/08/23. Plan next dose 01/05/24. documented in this [facility] Work Phone: [phone]) 971-163402-27-2024 History of Present illness Narrative* MATT Mendosa - 12/29/2023 2:00 PM EST Patient ID: Mojgan Pérez is a 68 y.o. female. Referring Physician: Spua Lindquist MD PhD [id number] [place] [address] Primary Care Provider: Fabiola Marinelli MD Assessment/Plan 12/29/23 Covid again. Coughing. Ok to try OTC cold medicine. Hold treatment today. Myeloma labs remain stable. Platelet count improving. RTC next week for IVIG +/- teclistamab. Oncology History Overview Note Referral from Dr. Marinelli at [facility]. MGUS since 2005 Followed at [facility] by Dr. Kumari, [...] radiation field this may not be entirely policy services representative. Also clonal evolution in the marrow [...] and K/L chain ratio pending Multiple myeloma ([facility]/HCC) 08/03/2023 Initial Diagnosis Multiple myeloma ([facility]) 08/04/2023 - 09/08/2023 Chemotherapy Teclistamab ramp-up (08/04-08/06-08/09/23): complicated grade-I CRS (fevers) and ICANS (suzanna ICE score 8/10) C2D1 teclistamab weekly (08/17/23, 08/25/23, 09/01/23, 09/08/23). Changed threshold notification for plt <35. 09/08/23 K/L ratio 0.01; IgG 338. SPEP pending. C3D1 teclisitimab weekly beginning 09/15/23. (Held 09/15, 09/22 09/29 10/06 due Covid + on 09/12/23. Treated with Paxlovid in [place] Plan to reassess and proceed with C3D1 [...] 3x weekly Hypogammaglobulinemia IVIG given 09/22/23, 10/29/23 ([facility]) and 12/08/23. Plan next dose 01/05/24. Liver cirrhosis secondary to KAPADIA (nonalcoholic steatohepatitis) (CMS/HCC) - Primary K75.81, K74.60 Multiple myeloma not having achieved remission (CMS/HCC) C90.00 Relevant Orders CBC and Auto Differential (Completed) Comprehensive Metabolic Panel (Completed) [place]/Lambda Free Light Chain, Serum (Completed) Serum Protein [...] May teclistamab appt scheduled. 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 Marinelli at [facility]. MGUS since 2005 Followed at [facility] by Dr. Kumari, [...] radiation field this may not be entirely policy services representative. Also clonal evolution in the marrow [...] + on 09/12/23. Treated with Paxlovid in [place] Plan to reassess and proceed with C3D1 [...] Diagnosis Multiple myeloma not having achieved remission ([facility]/HCC) Problem List Items Addressed This Visit ICD-10-CM Immunodeficiency disorder (CMS/HCC) - Primary D84.9 Infection prophylaxis VZV: Acyclovir 400 mg PO BID PJP: Trimethoprim-sulfamethoxazole 800-160 mg PO 3x weekly Hypogammaglobulinemia IVIG given 09/22/23 and 10/29/23 ([facility]) Plan next dose 12/08/23 Liver cirrhosis secondary [...] and Affect: Mood normal. documented in this [facility] Work Phone: [phone]) [phone] Evaluation + Plan note* Assessment & Plan Note - MATT Mendosa - 11/27/2023 10:27 AM ESTAssociated Problem(s): Immunodeficiency disorder (CMS/HCC) Infection prophylaxis VZV: Acyclovir 400 mg PO BID PJP: Trimethoprim-sulfamethoxazole 800-160 mg PO 3x weekly Hypogammaglobulinemia IVIG given 09/22/23 and 10/29/23 ([facility]) Plan next dose 12/08/23 [facility] Work Phone: [phone]) 701-364101-26-2024 Miscellaneous Notes* Assessment & Plan Note - MATT Mendosa - 11/27/2023 10:27 AM ESTAssociated Problem(s): Immunodeficiency disorder ([facility]) Infection prophylaxis VZV: Acyclovir 400 mg PO BID PJP: Trimethoprim-sulfamethoxazole 800-160 mg PO 3x weekly Hypogammaglobulinemia IVIG given 09/22/23 and 10/29/23 ([facility]) Plan next dose 12/08/23 [facility] Work Phone: [phone]) 390-734701-24-2024 Hospital Discharge instructions* Discharge Instructions* MATT Starr [...] for your own protection. documented [facility] Work Phone: [phone]) 118-749401-24-2024 Plan of care note* Care Plan - Clementina Benito RN - 11/25/2023 6:32 AM EST ICE score 10/10. Vitals stable, afebrile. Patient denied N/V/D overnight. [facility] Work Phone: [phone]) 153-656201-24-2024 Miscellaneous Notes* Care Plan - Clementina Benito [...] RN - 11/20/2023 9:56 AM EST 11/20/23 09 Prechemo Checklist Has the patient been in [...] Patient was due to receive IVIG in [place] with Dr. Fabiola Marinelli however Dr. Cotton discussed delaying treatment at this time and patient verbalized understanding Med Rec reviewed with pharmD at discharge M2B delivered documented in this [facility] Work Phone: 1([phone]) 133-480801-23-2024 History of Present illness Narrative* MATT Starr - 11/24/2023 10:49 AM EST Mojgan Pérez [...] chain disease with complex karyotype, multiple relapsed -[id number] Observation -2019 Palliative XRT both hips 800 [...] discussed and examined with Dr. Theresa Borrego, FIBRE TECHNOLOGIST-BINDERY MACHINE SETTER Associated attestation - Theresa Romano MD PhD [...] Daily sulfamethoxazole-trimethoprim, 1 tablet, oral, Every Mon/Wed/Fri Continuous medications PRN medications PRN medications: albuterol, [...] chain disease with complex karyotype, multiple relapsed -[id number] Observation -2019 Palliative XRT both hips 800 [...] Daily sulfamethoxazole-trimethoprim, 1 tablet, oral, Every Mon/Wed/Fri Continuous medications PRN medications PRN medications: albuterol, [...] chain disease with complex karyotype, multiple relapsed -7900-9552 Observation -2019 Palliative XRT both hips 800 [...] Daily sulfamethoxazole-trimethoprim, 1 tablet, oral, Every Mon/Wed/Fri Continuous medications PRN medications PRN medications: albuterol, [...] chain disease with complex karyotype, multiple relapsed -3706-0274 Observation -2019 Palliative XRT both hips 800 [...] to wound bed ([employer] order # [id number]) Cover with small piece of Aquacel rope Cover with Mepilex lite ([employer] order #[id number]) Wound Team Plan: Primary provider, please review recommendation. If you agree with recommendation please enter as wound orders in EMR. Thank you. Yesenia Palencia RN, CWON 11/20/2023 4:37 PM * Megan Borrego APRN-BINDERY MACHINE SETTER - 11/20/2023 12:03 PM EST Mojgan Pérez [...] chain disease with complex karyotype, multiple relapsed -8425-3276 Observation -2019 Palliative XRT both hips 800 [...] admit Oncologist: Dr. Lindquist Access: Pilo Fernandez patient seen discussed and examined with Dr. Theresa Borrego, FIBRE TECHNOLOGIST-BINDERY MACHINE SETTER Associated attestation - Theresa Romano MD PhD [...] chain disease with complex karyotype, multiple relapsed -6182-2916 Observation -2019 Palliative XRT both hips 800 [...] for Multiple myeloma not having achieved remission ([facility]). Pharmacy reviewed the patient's ujout-zh-nxbtzlecj medications and allergies for accuracy. The list below reflects the updated SCREW EYE ASSEMBLER list. Comments regarding how patient may be [...] at discharge. Pharmacy has been updated to [id number] ([place], [place]). Sources used to complete the med history include the outpatient dispense report, OARRS, 11/17 HemOncvisit note, 11/03 [facility] Family Medicine Healthcare Summary, and patient interview (good historian, hadmedication list and was able to confirm medications she is no longer taking and clarify directions). Below are additional concerns with the patient's SCREW EYE ASSEMBLER list. -Patient stated she also has Levemir 100unit/mL at home and is instructed to use 20-22 units nightly if blood glucose is >150 mg/dL. Patient reports she has not used this in >4 months. Sandy Bhardwaj PharmD [facility] PGY1 Nuisance Wildlife Control Operator [facility] Retail Services Please reach out via [employer] Secure Chat for questions, or if no response call No.1 Traveller or [employer] documented in this [facility] Work Phone: 1(898) 213-474301-23-2024 Nurse Note* Tawnya Fernandez RN - 11/24/2023 6:53 AM EST V/s stable overnight. Denied any pain. Her ICE score was 10/10. She was up and ambulating in the hallways during the evening and has been steady on ambulation to the bathroom overnight. [facility]01-23-2024 Nurse Note* Tawnya Fernandez RN - 11/24/2023 [...] PO. Patient tolerated well documented in this [facility] Work Phone: 1(613) 591-757401-22-2024 Nurse Note* Tawnya Fernandez RN - 11/23/2023 6:55 AM EST V/s stable overnight. Denied any pain. She received her 3rd dose of teclistamab without difficulty.Her ICE score was 10/10. She has been steady on ambulation to the bathroom and walking in the room.She is currently receiving 2gm of Magnesium for a Mag level of 1.78. [facility] Work Phone: 1([phone] 304-520901-21-2024 Note* Significant Event - Joaquina Cordon RN [...] BSA/Weight-Height Verified Yes Dose Calculations Verified Yes [facility]01-21-2024 Nurse Note* Tawnya Fernandez RN - 11/22/2023 6:42 AM EST V/s stable overnight. She did have some back and leg pain which was relieved by oxycodone earlier in the shift. Her ICE score was 10/10. She should receive her 3rd dose of teclistamab today. She has been steady on ambulation to the bathroom. [facility] Work Phone: 1(775) 578-388001-20-2024 Plan of care note* Care Plan - Stella Wall RN - 11/21/2023 3:36 PM EST The clinical goals for the shift include patient will remain HDS this shift Patient with stable VS. Took 1 dose of pain meds later in shift for back pain. No nausea. Up ad kelly. No SOB. Patient remained safe this shift. Stella Wall RN [facility]01-20-2024 Plan of care note* Care Plan - [...] pain meds throughout the shift Outcome: Progressing [facility] Work Phone: [phone] 494-612501-19-2024 Note* Significant Event - Johny Carter RN [...] BSA/Weight-Height Verified Yes Dose Calculations Verified Yes [facility]01-19-2024 Plan of care note* Care Plan - [...] The patient's goals for the shift include [facility] Work Phone: [phone] 414-233801-17-2024 Nurse Note* Clementina Benito RN - 11/18/2023 9:00 PM EST Late Entry Patient received dose #1 teclistamab subcutaneous 11/18/23 at 2100. Dose and order double checked with second RN. Baseline ICE score 10/10. Patient premedicated with tylenol, benadryl, and decadron PO. Patient tolerated well [facility]01-17-2024 Plan of care note* Care Plan - Natalee Rascon RN - 11/18/2023 7:46 PM EST Patient afebrile. Vitals stable. Labs drawn. Parameters not met. Doctors okay with going ahead withchemo. Will continue to monitor [facility] Work Phone: [phone] 814-200801-17-2024 Hospital Note* Hospital Course - Megan Borrego APRN-TONYA - 11/18/2023 6:29 PM EST Mojgan Pérez [...] Patient was due to receive IVIG in [place] with Dr. Fabiola Marinelli however Dr. Cotton discussed delaying treatment at this time and patient verbalized understanding Med Rec reviewed with pharmD at discharge M2B delivered [facility] Work Phone: 1(178) 518-845001-17-2024 History and physical note* Garima Clemons PA-C [...] Overview Note Referral from Dr. Marinelli at [facility]. MGUS since 2005 Followed at [facility] by Dr. Kumari, [...] radiation field this may not be entirely policy services representative. Also clonal evolution in the marrow [...] + on 09/12/23. Treated with Paxlovid in [place] Plan to reassess and proceed with C3D1 with ongoing resolution of sx. Teclistamab (Weekly), 28 Day Cycles 11/18/2023 - Chemotherapy Teclistamab (Weekly), 28 Day Cycles Multiple myeloma not having achieved remission (CMS/HCC) 10/20/2023 Initial Diagnosis Multiple myeloma not having achieved remission ([facility]) Family History Mom - cancer Dad - [...] chain disease with complex karyotype, multiple relapsed -[id number] Observation -2019 Palliative XRT both hips 800 [...] discussed with Dr. Juan Antonio Clemons PA-C [facility] Work Phone: [phone]) 546-584101-17-2024 History and physical note* Garima Clemons PA-C [...] Overview Note Referral from Dr. Marinelli at [facility]. MGUS since 2005 Followed at [facility] by Dr. Kumari, [...] radiation field this may not be entirely policy services representative. Also clonal evolution in the marrow [...] + on 09/12/23. Treated with Paxlovid in [place] Plan to reassess and proceed with C3D1 with ongoing resolution of sx. Teclistamab (Weekly), 28 Day Cycles 11/18/2023 - Chemotherapy Teclistamab (Weekly), 28 Day Cycles Multiple myeloma not having achieved remission (CMS/HCC) 10/20/2023 Initial Diagnosis Multiple myeloma not having achieved remission ([facility]) Family History Mom - cancer Dad - [...] chain disease with complex karyotype, multiple relapsed -2289-5487 Observation -2019 Palliative XRT both hips 800 [...] seen, examined, discussed with Dr. Juan Antonio Clemons, PAGrahamC [facility] Work Phone: [phone] 368-933101-16-2024 Evaluation + Plan note* Assessment & Plan Note - MATT Mendosa - 11/17/2023 10:00 AM ESTAssociated Problem(s): Immunosuppressed status (CMS/HCC) Infection prophylaxis VZV: Continue acyclovir 400 mg PO BID PJP: Continue trimethoprim-sulfamethoxazole 800-160 mg PO 3x weekly Hypogammaglobulinemia IVIG given 09/22/23 and 10/29/23 ([facility]) [facility] Work Phone: [phone] 112-124401-16-2024 Miscellaneous Notes* Assessment & Plan Note - MATT Mendosa - 11/17/2023 10:00 AM ESTAssociated Problem(s): Immunosuppressed status (CMS/HCC) Infection prophylaxis VZV: Continue acyclovir 400 mg PO BID PJP: Continue trimethoprim-sulfamethoxazole 800-160 mg PO 3x weekly Hypogammaglobulinemia IVIG given 09/22/23 and 10/29/23 ([facility]) [facility] Work Phone: [phone] History of Present illness Narrative* Lisette Perkins, FIBRE TECHNOLOGIST-BINDERY MACHINE SETTER - 11/17/2023 8:30 AM EST Patient ID: Mojgan Pérez is a 68 y.o. female. Referring Physician: ONC Dr Lindquist Primary Care Provider: Fabiola Marinelli MD Assessment/Plan 11/17/23 Teclistimab held since September (09/12/23) due to Covid with prolonged recovery. Ready for admission to resume teclistimab. Requires 2nd ramp up due to treatment hold duration. Oncology History Overview Note Referral from Dr. Marinelli at [facility]. MGUS since 2005 Followed at [facility] by Dr. Kumari, [...] radiation field this may not be entirely policy services representative. Also clonal evolution in the marrow [...] and K/L chain ratio pending Multiple myeloma ([facility]) 08/03/2023 Initial Diagnosis Multiple myeloma ([facility]) 08/04/2023 - Chemotherapy Teclistamab ramp-up (08/04-08/06-08/09/23): complicated grade-I CRS (fevers) and ICANS (suzanna ICE score 8/10) C2D1 teclistamab weekly (08/17/23, 08/25/23, 09/01/23, 09/08/23). Changed threshold notification for plt <35. 09/08/23 K/L ratio 0.01; IgG 338. SPEP pending. C3D1 teclisitimab weekly beginning 09/15/23. (Held 09/15, 09/22 09/29 10/06 due Covid + on 09/12/23. Treated with Paxlovid in [place] Plan to reassess and proceed with C3D1 with ongoing resolution of sx. Teclistamab (Weekly), 28 Day Cycles 11/18/2023 - Chemotherapy Teclistamab (Weekly), 28 Day Cycles Multiple myeloma not having achieved remission ([facility]/HCC) 10/20/2023 Initial Diagnosis Multiple myeloma not having achieved remission ([facility]) Problem List Items Addressed This Visit ICD-10-CM Immunosuppressed status ([facility]) D84.9 Infection prophylaxis VZV: Continue acyclovir 400 mg PO BID PJP: Continue trimethoprim-sulfamethoxazole 800-160 mg PO 3x weekly Hypogammaglobulinemia IVIG given 09/22/23 and 10/29/23 ([facility]) Multiple myeloma not having achieved remission ([facility]) - Primary C90.00 Relevant Orders CBC and Auto Differential Comprehensive Metabolic Panel [place]/Lambda Free Light Chain, Serum Serum Protein Electrophoresis [...] and Affect: Mood normal. 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 [employer] Other 12-05-2023 History of Present illness Narrative* Supa Lindquist MD PhD - 10/06/2023 10:30 AM EST HEMATOLOGY/ONCOLOGY CLINIC NOTE HPI: Had COVID in September 2023 Clinically nearly resolved. Still with mild cough Energy good Oncology History and Treatment synopsis Oncology History Overview Note Referral from Dr. Marinelli at [facility]. MGUS since 2005 Followed at [facility] by Dr. Kumari, [...] radiation field this may not be entirely policy services representative. Also clonal evolution in the marrow with the most recent marrow showing additional cytogenetic abnormalities. 07/23/23 Restaging labs: free lambda light chain 35.95 mg/dL (up from 5.65 mg/dL in December 2022) and free-lambda M-spike of 0.1 g/dL Myeloma responding (lambda chains <0.17) Multiple myeloma (CMS/HCC) 08/03/2023 Initial Diagnosis Multiple myeloma ([facility]) 08/04/2023 - Chemotherapy Teclistamab ramp-up (08/04-08/06-08/09/23): complicated grade-I CRS (fevers) and ICANS (suzanna ICE score 8/10) C2D1 teclistamab weekly (08/17/23, 08/25/23, 09/01/23, 09/08/23). Changed threshold notification forplt <35. 09/08/23 K/L ratio 0.01; IgG 338. SPEP pending. C3D1 teclisitimab weekly beginning 09/15/23. (Held 09/15, 09/22 and 09/29 due to Covid + on 09/12/23. 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 Irritation L scientology. Neurological: Positive for headaches. Migraines 2x week. Hematological: Bruises/bleeds easily. Psychiatric/Behavioral: Positive for sleep disturbance. Oncology History and Treatment synopsis Oncology History Overview Note Referral from Dr. Marinelli at [facility]. MGUS since 2005 Followed at [facility] by Dr. Kumari, [...] radiation field this may not be entirely policy services representative. Also clonal evolution in the marrow with the most recent marrow showing additional cytogenetic abnormalities. 07/23/23 Restaging labs: free lambda light chain 35.95 mg/dL (up from 5.65 mg/dL in December 2022) and free-lambda M-spike of 0.1 g/dL Teclistamab ramp-up (08/04-08/06-08/09/23): complicated grade-I CRS (fevers) and ICANS (suzanna ICE score 06/11) C2D1 teclistamab weekly (08/17/23, 08/25/23, 09/01/23, 09/08/23). Changed threshold notification forplt <35. 09/08/23 K/L ratio 0.01; IgG 338. SPEP pending. C3D1 teclisitimab weekly beginning 09/15/23. Consider IVIG for IgG level <400. Multiple myeloma (CMS/HCC) 08/03/2023 Initial Diagnosis Multiple [...] hepatotoxic meds RTC Weekly. documented in this [facility] Work Phone: [phone] 242-420510-16-2023 History of Present illness Narrative* Tk Camp PA-C - 08/17/2023 10:00 AM EDT Patient ID: Mojgan Pérez is a 67 y.o. female. Diagnosis: [Associated problem not found], No matching staging information was found for the patient., Treatment: Oncology History Overview Note he has been referred from Dr. Marinelli at [facility]. 2006 MGUS since 2005 for which she was followed at [facility] by Dr. Kumari, and then Dr. Cummings. 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 Marrow 05/2023 1q+, 4p-, 13q/-13, 14q- and 16q- [id number] Observation 2019 Palliative XRT both hips 800 [...] radiation field this may not be entirely policy services representative. There is also clonal evolution in [...] Items Addressed This Visit ICD-10-CM Multiple myeloma ([facility]) - Primary C90.00 Currently in relapse - [...] around 08/17 -- pending today Immunosuppressed status (CMS/[facility]) D84.9 - VZV: Continue acyclovir 400 mg [...] [facility]: [phone] Evaluation + Plan note* Assessment & Plan Note - Tk Camp PA-C - 08/17/2023 7:42 AM EDTAssociated Problem(s): Immunosuppressed status (CMS/HCC) - VZV: Continue acyclovir 400 mg PO BID - PJP: Continue trimethoprim-sulfamethoxazole 800-160 mg PO 3x weekly [facility] Work Phone: [phone] 105-997210-16-2023 Evaluation + Plan note* Assessment & Plan Note - Tk Camp PA-C - 08/17/2023 7:42 AM EDTAssociated Problem(s): Pancytopenia (CMS/HCC) Due to disease and chemotherapy Transfuse for Hgb < 7 g/dL and platelets < 10 k/uL or bleeding [facility] Work Phone: [phone] 483-183210-16-2023 Miscellaneous Notes* Assessment & Plan Note - [...] 08/17 -- pending today documented in this [facility] Work Phone: [phone]) 654-908010-16-2023 Evaluation + Plan note* Assessment & Plan [...] myeloma markers around 08/17 -- pending today [facility] Work Phone: [phone] 857-637810-13-2023 Evaluation + Plan note* Assessment & Plan [...] Plan, so I will enter these outside [facility] Work Phone: [phone] Miscellaneous Notes* Assessment & Plan Note - [...] mg PO 3x weekly [facility] Work Phone: [phone] 308-760210-13-2023 Evaluation + Plan note* Assessment & Plan Note - Lakeisha Kevin PA-C - 08/14/2023 11:02 AM EDTAssociated Problem(s): Pancytopenia (CMS/HCC) :: Due to disease and chemotherapy - Transfuse for Hgb < 7 g/dL and platelets < 10 k/uL or bleeding [facility] Work Phone: [phone] Evaluation + Plan note* Assessment & Plan Note - Lakeisha Kevin PA-C - 08/14/2023 10:20 AM EDTAssociated Problem(s): Immunosuppressed status (CMS/HCC) - VZV: Continue acyclovir 400 mg PO BID - PJP: Continue trimethoprim-sulfamethoxazole 800-160 mg PO 3x weekly [facility] Work Phone: [phone] History of Present illness Narrative* Lakeisha Kevin PA-C - 08/14/2023 10:00 AM EDT Patient ID: Mojgan Pérez is a 67 y.o. female. Diagnosis: [Associated problem not found], No matching staging information was found for the patient., Treatment: Oncology History Overview Note he has been referred from Dr. Marinelli at [facility]. 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 Kumari, and then Dr. Cummings. 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 Marrow 05/2023 1q+, 4p-, 13q/-13, 14q- and 16q- [id number] Observation 2019 Palliative XRT both hips 800 [...] radiation field this may not be entirely policy services representative. There is also clonal evolution in the marrow with the most recent marrow showing additional cytogenetic abnormalities. Most recent myeloma labs (07/23/23) show free lambda light chains of 35.95 mg/dL, up from 5.65 mg/dLin December 2022 free-lambda M-spike of 0.1 g/dL - Teclistamab ramp-up (08/04-08/06-08/09/23): complicated grade-I CRS (fevers) and ICANS (suzanna ICE score 8/10) - C2 teclistamab (08/17/23), planned Multiple myeloma ([facility]) 08/03/2023 Initial Diagnosis Multiple myeloma ([facility]) 08/04/2023 - Chemotherapy Teclistamab (Weekly), 28 Day [...] Findings: No lesion or rash. Comments: R PIC chest MediPort site is clean/dry/intact without erythema, [...] Relevant Orders Serum Protein Electrophoresis + Immunofixation [place]/Lambda Free Light Chain, Serum Beta 2 Microglobuin Lactate Dehydrogenase Immunoglobulins (IgG, IgA, IgM) Other Immunosuppressed status (CMS/HCC) D84.9 - VZV: Continue acyclovir 400 mg PO BID - PJP: Continue trimethoprim-sulfamethoxazole 800-160 mg PO 3x weekly RTC: - 08/17/23: C2D1 teclistamab, [facility] - 08/20/23: Dr. Lindquist Requested, pending: - 08/24/23: C2D8 teclistamab - 08/31/23: C15 teclistamab - 09/07/23: C2D22 teclistamab [facility] documented in this [facility] Work Phone: [phone] 161-824910-11-2023 Miscellaneous Notes* Care Plan - Ro Fontanez RN - 08/12/2023 5:41 PM EDT VSS, afebrile, denies N/V/D. Chronic leg pain under control. ICE score 10/10, iv abx discontinued. Remains free from injury. * Care Plan - Juan Samaniego S-PT - 08/12/2023 10:39 AM EDT Problem: Mobility Goal: STG - Patient will ambulate >/= 200 ft. independently with LRAD Outcome: Progressing Problem: Transfers Goal: STG - Patient will perform bed mobility independently Outcome: Progressing Goal: STG - Patient will transfer sit to and from stand independently Outcome: Progressing * Care Plan - Joaquina Cordon RN - 08/12/2023 5:34 AM EDT ICE score 10/10, vss, afebrile, no complaints N/V/D this shift. [...] PM EDT Standing vs orthos- notified carolyn rob of positive orthostatics, denies feeling dizzy/lightheaded only [...] - Adult Goal: Free from fall injury 08/10/2023633 by Fletcher Rahman RN Outcome: Progressing [...] discharge: acyclovir, bactrim Dispo: Home Access: [employer] Apts: Malignant hematology provider visit with count [...] 08/04/2023 6:17 AM EDT Pt. admitted to [facility] overnight for planned teclistamab treatment. VSS, afebrile, no complaints of NVD. Complaints of pain - oxycodone given x1. Pt. rested peacefully overnight - no acute events. Pt. remained free from falls and injury. Problem: Pain - Adult Goal: Verbalizes/displays adequate comfort level or baseline comfort level 08/04/2023 0616 by Fletcher Rahman RN Outcome: Progressing 08/04/2023 0350 by Fletcher Rahman RN Outcome: Progressing 08/04/2023 0349 by Fletcher Rahman, RN Outcome: Progressing 08/04/2023 0348 by Fletcher Rahman, RN Outcome: Progressing 08/03/2023 2325 by Fletcher Rahman, RN Outcome: Progressing Problem: Safety - Adult Goal: Free from fall injury 08/04/2023 0616 by Fletcher Rahman, RN Outcome: Progressing 08/04/2023 0350 by Fletcher Rahman, RN Outcome: Progressing 08/04/2023 0349 by Fletcher Rahman, RN Outcome: Progressing 08/04/2023 0348 by Fletcher Rahman, RN Outcome: Progressing 08/03/2023 2325 by Fletcher Rahman, RN Outcome: Progressing Problem: Pain Goal: [...] 2325 by Fletcher Rahman, RN Outcome: Progressing Problem: [...] by Fletcher Rahman, RN Outcome: Progressing Goal: Pace activities to [...] 2% difference = WDL documented in this [facility] Work Phone: [phone] 297-938610-11-2023 History of Present illness Narrative* Lisa Cruz [...] IgA 36, KFLC 1.34, LFLC 35.95 Treatment: 0502-6924 Observation 2019 Palliative XRT both hips 800 [...] admit Oncologist: Dr. Lindquist Access: R. [employer] Plan discharge 08/13 Patient seen, examined, and discussed with Dr. Ginger Cruz PA-C Associated attestation - Marcus Miles MD [...] AM if remains afebrile. * Juan Samaniego, S-PT - 08/12/2023 10:42 AM EDT Physical Therapy [...] Prior Function Per Pt/Caregiver Report Level of [place]: Independent with ADLs and functional transfers ADL [...] (BLE grossly observed >/= 3+/5) Outcome Measures: [facility] Basic Mobility Turning from your back to [...] Straw, Yellow Appearance, Urine Clear Clear Specific [place], Urine 1.004 (N) 1.005 - 1.035 pH, [...] IgA 36, KFLC 1.34, LFLC 35.95 Treatment: 2198-5862 Observation 2019 Palliative XRT both hips 800 [...] signed on admit Oncologist: Dr. Lindquist Access: RErna Fernandez Tentative discharge tomorrow Carolyn Rob PA-C Associated [...] IgA 36, KFLC 1.34, LFLC 35.95 Treatment: 3964-8879 Observation 2019 Palliative XRT both hips 800 [...] IgA 36, KFLC 1.34, LFLC 35.95 Treatment: 3121-8494 Observation 2019 Palliative XRT both hips 800 [...] and overall care of this patient. Elvia M Santana, PA-C Associated attestation - Sarath Gamez MD - 08/10/2023 12:26 AM EDT This is a shared visit. I saw and evaluated the patient. I personally obtained the salazar and criticalportions of the history and physical exam or was physically present for salazar and critical portions performed by the physician delinquent tax collection assistant (PA). I reviewed the PA's documentation and [...] Straw, Yellow Appearance, Urine Clear Clear Specific [place], Urine 1.008 1.005 - 1.035 pH, Urine [...] IgA 36, KFLC 1.34, LFLC 35.95 Treatment: 6178-3947 Observation 2019 Palliative XRT both hips 800 [...] and critical portions performed by the physician delinquent tax collection assistant (PA). I reviewed the PA's documentation and discussed the patient with the PA. I agree with the PA's medical decision making as documented in the PA's note with the exception/addition of the followin-year-old woman with refractory lambda light chain myeloma (originally diagnosed with MGUS in 1999', progressed to myeloma in 2020 and is [...] IgA 36, KFLC 1.34, LFLC 35.95 Treatment: 1194-7633 Observation 2019 Palliative XRT both hips 800 [...] and critical portions performed by the physician delinquent tax collection assistant (PA). I reviewed the PA's documentation and [...] IgA 36, KFLC 1.34, LFLC 35.95 Treatment: 0792-2464 Observation 2019 Palliative XRT both hips 800 cGy 04/10/2020 Velcade dex jennifre 07/31/2021 Radiation to soff tissue area of [...] of Sarah Will have to come to [facility] for first few Sarah doses (wkly) I spent 30 minutes in the professional and overall care of this patient. BRENDA BaumannC Associated attestation - Sarath Gamez MD - 08/08/2023 9:33 AM EDT This is a shared visit. I saw and evaluated the patient. I personally obtained the salazar and criticalportions of the history and physical exam or was physically present for salazar and critical portions performed by the physician delinquent tax collection assistant (PA). I reviewed the PA's documentation and [...] IgA 36, KFLC 1.34, LFLC 35.95 Treatment: 0944-0993 Observation 2019 Palliative XRT both hips 800 [...] on admit Oncologist: Dr. Lindquist Access: R. Leonela Plan to discharge 48 hrs after D5 [...] and critical portions performed by the physician delinquent tax collection assistant (PA). I reviewed the PA's documentation and [...] of high blood pressure, and diabetes * Antonella Pickens, FIBRE TECHNOLOGIST-BINDERY MACHINE SETTER - 08/04/2023 1:12 PM EDT Mojgan Pérez [...] RT PCR Result Value Ref Range Coronavirus 2019, PCR Not Detected Not Detected CBC and [...] IgA 36, KFLC 1.34, LFLC 35.95 Treatment: [id number] Observation 2019 Palliative XRT both hips 800 [...] overall care of this patient. Antonella Pickens APRN-BINDERY MACHINE SETTER Associated attestation - Sarath Gamez MD - 08/05/2023 6:42 AM EDT This is a shared visit. I saw and evaluated the patient. I personally obtained the salazar and criticalportions of the history and physical exam or was physically present for salazar and critical portions performed by the certified nurse practitioner (BINDERY MACHINE SETTER). I reviewed the BINDERY MACHINE SETTER's documentation and discussedthe patient with the BINDERY MACHINE SETTER. 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 Otherwise patient will continue with her medications for her chronic conditions including hypertension, hyperlipidemia, type 2 diabetes, peripheral neuropathy [facility] Work Phone: [phone]) 175-808210-10-2023 Nurse Note* Bhavani Chris RN - 08/11/2023 [...] Tolerated well without incident. [facility] Work Phone: 1([phone]) 372-409810-03-2023 Emergency department Note* Raina Ramirez, PjD - 08/04/2023 10:23 AM EDT Pharmacy Medication History Review Mojgan Pérez is a 67 y.o. female admitted for Multiple myeloma, remission status unspecified ([facility]). Pharmacy reviewed the patient's ngwop-xb-badfkpfms medications and allergies for accuracy. The list below reflectives the updated SCREW EYE ASSEMBLER list. Please review each medication in order [...] clarification and justification. Allergies Reviewed by Raina Ramirez PharmD on 08/04/2023 Severity Reactions Comments Latex Medium Hives, Rash Tetracyclines Medium Hives, Rash Avelox [moxifloxacin] Low Rash Sources: Patient interview, [facility] note 07/23/23, KATIE Additional Comments: Patient previously on Tudorza, Advair, [...] 1-2 capsules twice daily Raina Ramirez PharmD [facility] PGY-1 Community Nuisance Wildlife Control Operator Medication reconciliation complete Please reach out via Ataxion for questions, or if no response call No.1 Traveller or [employer] [facility] documented in this [facility] Work Phone: [phone]) 148-849610-03-2023 History and physical note* Kevin Machado PA-C [...] has been referred from Dr. Marinelli at [facility]. 2006 MGUS since 2005 for which she was followed at [facility] by Dr. Kumari, and then Dr. Cummings. 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 Marrow 05/2023 1q+, 4p-, 13q/-13, 14q- and 16q- [id number] Observation 2019 Palliative XRT both hips 800 [...] IgA 36, KFLC 1.34, LFLC 35.95 Treatment: [id number] Observation 2019 Palliative XRT both hips 800 [...] patient. Kevin Machado PA-C documented [facility] Work Phone: [phone]) 675-185909-14-2023 Evaluation note* Encounter Date Diagnosis Assessment Notes [...] further consideration and discussion with her family. [employer] Other 09-06-2023 Progress note Author Fabiola Marinelli [facility] July 08, 2023 1:34pmNote Date/TimeSept2022 10:53amPampa [facility] at [address] [address] Hem/Onc Follow Up Note - OP Signed Patient: Mojgan Pérez MR#: [id number] : 1955 Acct:[id number] Age/Sex: 67 / F Type: REG RCR Copies to: MD Yinka Downey MD Dr. Koen van Besien~ Subjective Date/Time of Service: Date of Service: 07/08/2023 Time of Service: 10:53 Chief Complaint: Patient is here for a 1 month follow up visit follow up visit for multiple myelomaand go over labs HPI: 07/08/2023: Mojgan had her virtual consultation with Dr. Lindquist of [facility] malignanthematology on 06/26/2023. He had discussed treatment optionswith her given her worsening cytopenias and generalized pain and fatigue. Possible by specific monoclonal antibody therapy versus CAR-T therapy. He also remarked that her prior bone marrow biopsy may have underestimated the degree ofher myeloma since it may have been performed at the site of prior radiation. [facility]will [facility]23 to evaluate her in person [...] care to Dr. Lindquist forfurther therapy at [facility]. It is possible that if she tolerates antibody treatment well that we may be able to transfer her therapy her low 35- minute follow-up for coordination of care with [facility]. 06/10/2023: Mojgan is unaccompanied today--scheduled to see [...] which she would need to receive at [facility]. F/u with me in 2 weeks--if persistent [...] about 3 to 4 weeks, possibly with lead c developer covering at that time. Patient expressed understanding. [...] follow-up as directed. Planning a trip to [place] on March 06, therefore we will hold [...] December 2020 to 60.2 in October 2021. [place] lambda ratio has also started to decline to 0.21 in October 2021. For now I'm continuing her daratumumab with Revlimid at current dosing, but I contacted Dr. Benavidez at [facility] for CAR-T cell eligibility. If he has [...] and myeloma labs (follow quant immunoglobulins and [place]/Lambda light chain ratio with skeletal survey in 2 weeks so results available for appointment). 08/30/2021: Mojgan is here for 2-week follow-up for completion of her palliative radiation therapywith significant improvement of pain in her right hip and pelvis. We sent her for echocardiogram performed 08/23/[address] [facility] heart and vascular [place] as baseline for possible Kyprolis therapy. This returned with ejection fraction 60% which is normal with grade 1 left ventricular diastolic dysfunction and 1+ tricuspid valve regurgitation and trace to 1+ aortic valve regurgitation.Otherwise unremarkable. I discussed her case with Dr. Benavidez of malignant hematology at [facility]. He advised against Kyprolis therapy given her [...] spike). Slowly improving IgG to near normal. [place]/lambda light chain ratio normal with mildly increased [...] daughter) for cycle 8, week 2 followup [id number] mg/kg IV weekly, Dexamethasone 20mg weekly, and [...] symptoms--improving thrombocytopenia to 79,000 and improved leukopenia. 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 Still [...] her case with Dr. Piter Benavidez at [facility] malignant hematology for optimal regimen. The [...] request prior liver biopsy and records from [facility] liver clinic. The patient and her son (by telephone) expressed understanding and will follow- up as directed in 2 weeks for consent and likely start of therapy. --04/02/2020: Mojgan presents after infusion port placement at [facility] by interventional radiology due to platelet count [...] (for liver dysfunction) 0.7mg/m2 D1,D4,D8, D11, and [id number] IV weekly--repeat for every 3 week cycles [...] GERD, and fibromyalgia who [facility] [place] [facility] chronic mild to moderate thrombocytopenia. She states that she was followed with Dr. Kumari prior to his senior living and was told that she had an [...] The treatments were given with AP/PA vaz [id number] MV photons and MLC blocks. 3. Deferred [...] nonalcoholic steatohepatitis with cirrhosis, previously followed by [facility] gastroenterology. Cardiovascular: No Chest Pain, No Edema, [...] (Last Reviewed 07/08/23 @ 13:00 by Fabiola Marienlli MD) Aortic aneurysm COPD (chronic obstructive pulmonary [...] L, IgA 38 L, IgM 33, Free [place] LC, Quant 11.1, Free Lambda LC, Quant 306.6H, Free [place]/Lambda Ratio 0.04 L 07/01/23 09:50: Corrected WBC 1.6 L, Uncorrected WBC Count 1.6 L, RBC 3.18 L, Hgb 10.5 L, Hct 31.0 L, MCV 97.5, MCH 33.0, MCHC 33.8, RDW 16.2 H, Plt Count 26 L*, MPV 8.0, Neut % (Auto) 52.0, Lymph % (Auto) 31.1, Briscoe % (Auto) 10.9, Eos % (Auto) 5.8, Baso % (Auto) 0.2, Nucleat RBC Rel Count 0.3, Neut # (Auto) 0.8 L, Lymph # (Auto) 0.5 L, Briscoe # (Auto) 0.2, Eos # (Auto) 0.1, [...] Staging Staging: Stage IIIA Multiple Myeloma ([place] criteria) (1) Multiple myeloma Qualifiers: Multiple myeloma [...] [facility] Her persistent thrombocytopenia made her ineligible [...] the patient in hematology tumor board at [facility]. --Infusion port placed 03/22/2020 at [facility] due to low platelets. No complications. --03/12/2020: [...] needed for cytopenias.Evaluation for CAR-T therapy at [facility]. Send myeloma labs and skeletal survey [...] bone marrow biopsy, but this would not change management expert, therefore we will give Pomalyst (now decreasedto [...] and kappa/lambda light chains (ok to see PARK MANAGER). --09/17/2022: Mojgan is here for cycle 3 [...] in 6 weeks or sooner as needed. [place]/lambda light chains were reviewed and doshow partial [...] persistent cytopenias and sinusitis. She now has [id number] and platelets 37,000 without bleeding. Relatively stable [...] bleeding. Hemoglobin stable at 10 but worsening [id number] with ANC 1000. Rising lambda light chains [...] novel therapies that are not available at [facility]. We did discuss potential risk of cytokine release syndrome with by specific antibody therapy that would require a short hospital admission at [facility]. For now we set up afollow-up visit in 3 months with myeloma laboratories, sooner if requested byDr. Lindquist. Patient is in agreement with this plan over this 35-minute moderate complexity visit for coordination of care with [facility]. (2) Bone marrow hypocellularity Hypocellular for age [...] I previously reviewed her outpatient records from [facility], including review of notes, laboratories, and [...] She continues surveillance with liver clinic at [facility] and I will continue to follow her every 6 months, sooner if newbleeding issues arise. --04/02/2020: We reviewed informed consent for Daratumumab/Velcade/Dexamethasone for active myeloma therapy. I requested prior liver biopsy results and notes from liver clinic at [facility]. Platelet count in 40,000 range but [...] Dr. Supa Lindquist for further therapy at [facility] as noted above. (5) Cancer-related pain Improved [...] infiltration that may further impairher liver function. [facility] hepatology discussed liver transplant but sheis likely no longer a candidate for this given active myeloma. We chose least hepatotoxic regimen for treatment of her active myeloma with 50% dose reduction of Velcade. Liver function remained stable since start of therapy 04/10/2020. --Requested prior liver biopsy and [facility] liver clinic records. Dose reduction 20% Kyprolis [...] 6 months. Second opinion with Dr. Lindquist [facility] (virtual consult 06/26/2023; In person consult 07/23/2023 [...] to hold therapy, second opinion virtual visit [facility] Hematology Coordination of Care & Counseling Time: Greater than 50% of time spent with patient was for coordination of care (as documented) and bnri-yo-pqse counseling of patient and/or family. Dictated By: Fabiola Marinelli MD DD/ [id number] Signed By: <Electronically signed by MD Fabiola Marinelli> 07/08/23 [address] [facility] Work Phone: [phone]) [phone] Evaluation note* Encounter Date Diagnosis Assessment Notes Treatment Notes Treatment Clinical Notes Jun, Cancer associated pain (ICD-10 - G89.3) OARRS reviewed, consistent with Rx [employer] Other 08-09-2023 Progress note Author Fabiola Yves [facility] June 10, 2023 7:36pmNote Date/TimeAugust 2022 1:37pmP[facility] [place] [id number] Hem/Onc Follow Up Note - OP Signed Patient: Mojgan Pérez MR#: [id number] : 1955 Acct:[id number] Age/Sex: 67 / F Type: REG RCR Copies to: MD Yinka Downey MD Katherine M McGraw, FIBRE TECHNOLOGIST~ Subjective Date/Time of Service: Date of Service: [...] which she would need to receive at [facility]. F/u with me in 2 weeks--if persistent [...] about 3 to 4 weeks, possibly with lead c developer covering at that time. Patient expressed understanding. [...] follow-up as directed. Planning a trip to [place] on March 06, therefore we will hold [...] in December 2020 to 60.2 inDecember 2020. [place] lambda ratio has also started to decline to 0.21 in October 2021. For now I'm continuing her daratumumab with Revlimid at current dosing, but I contacted Dr. Benavidez at [facility] for CAR-T cell eligibility. If he has [...] CMP,and myeloma labs (follow quant immunoglobulins and [place]/Lambda light chain ratio with skeletal survey in 2 weeks so results available for appointment). 08/30/2021: Mojgan is here for 2-week follow-up for completion of her palliative radiation therapywith significant improvement of pain in her right hip and pelvis. We sent her for echocardiogram performed 08/23/[address] [facility] heart and vascular [place] as baseline for possible Kyprolis therapy. This returned with ejection fraction 60% which is normal with grade 1 left ventricular diastolic dysfunction and 1+ tricuspid valve regurgitation and traceto 1+ aortic valve regurgitation. Otherwise unremarkable. I discussed her casewith Dr. Benavidez of malignant hematology at [facility]. He advised against Kyprolis therapy given her [...] spike). Slowly improving IgG to near normal. [place]/lambda light chain ratio normal with mildly increased [...] symptoms--improving thrombocytopenia to 79,000 and improved leukopenia. 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 Still [...] her case with Dr. Piter Benavidez at [facility] malignant hematology for optimal regimen. The [...] request prior liver biopsy and records from [facility] liver clinic. The patient and her son (by telephone) expressed understanding and will follow- up as directed in 2 weeks for consent and likely start of therapy. --04/02/2020: Mojgan presents after infusion port placement at [facility] by interventional radiology due to platelet count [...] (for liver dysfunction) 0.7mg/m2 D1,D4,D8, D11, and Ebfpzgfeddpic28ga IV weekly--repeat for every 3 week cycles [...] GERD, and fibromyalgia who [facility] for chronic mild to moderate thrombocytopenia. She states that she was followed with Dr. Kumari prior to his senior living and was told that she had an [...] The treatments were given with AP/PA vaz [id number] MV photons and MLC blocks. 3. Deferred [...] Plan change in therapy in 1 month. 02/19/2022: Continue daratumumab 16 mg/kg IV every [...] Pomalyst due to cytopenias, stopped mid 07/2022. 07/18/2022: carfilzomib (dose 20mg/m2 day one then [...] nonalcoholic steatohepatitis with cirrhosis, previously followed by [facility] gastroenterology. Cardiovascular: No Chest Pain, No Edema, [...] mL) PO BID PRN Constipation #600 mL 06/08/22 [Rx Confirmed 06/10/23] acyclovir 400 mg tablet [...] L, IgA 38 L, IgM 32, Free [place] LC, Quant 13.9, Free Lambda LC, Quant 241.0H, Free [place]/Lambda Ratio 0.06 L - Impressions PET f-18 [...] Staging Staging: Stage IIIA Multiple Myeloma ([place] criteria) (1) Multiple myeloma Qualifiers: Multiple myeloma [...] [facility] Her persistent thrombocytopenia made her ineligible [...] the patient in hematology tumor board at [facility]. --Infusion port placed 03/22/2020 at [facility] due to low platelets. No complications. --03/12/2020: [...] needed for cytopenias.Evaluation for CAR-T therapy at [facility]. Send myeloma labs and skeletal survey [...] bone marrow biopsy, but this would not change management expert, therefore we will give Pomalyst (now decreasedto [...] immunoglobulins, and kappa/lambda light chains(ok to see PARK MANAGER). --09/17/2022: Mojgan is here for cycle 3 [...] in 6 weeks or sooner as needed. [place]/lambda light chains were reviewed and doshow partial [...] persistent cytopenias and sinusitis. She now has [id number] and platelets 37,000 without bleeding. Relatively stable [...] bleeding. Hemoglobin stable at 10 but worsening [id number] with ANC 1000. Rising lambda light chains [...] I previously reviewed her outpatient records from [facility], including review of notes, laboratories, [...] She continues surveillance with liver clinic at [facility] and I will continue to follow her every 6 months, sooner if newbleeding issues arise. --04/02/2020: We reviewed informed consent for Daratumumab/Velcade/Dexamethasone for active myeloma therapy. I requested prior liver biopsy results and notes from liver clinic at [facility]. Platelet count in 40,000 range but [...] infiltration that may further impairher liver function. [facility] hepatology discussed liver transplant but sheis likely no longer a candidate for this given active myeloma. We chose least hepatotoxic regimen for treatment of her active myeloma with 50% dose reduction of Velcade. Liver function remained stable since start of therapy 04/10/2020. --Requested prior liver biopsy and [facility] liver clinic records. Dose reduction 20% Kyprolis [...] to hold therapy, second opinion virtual visit [facility] Coordination of Care & Counseling Time: Greater than 50% of time spent with patient was for coordination of care (as documented) and oikd-tq-rgvk counseling of patient and/or family. Dictated By: Fabiola Marinelli MD DD/ 1335 Signed By: <Electronically signed by MD Fabiola Marinelli> 06/10/231935 [facility] Work Phone: 1(539) 845-983208-02-2023 Evaluation note* Encounter Date Diagnosis Assessment Notes Treatment Notes Treatment Clinical Notes Jun, Cancer associated pain (ICD-10 - G89.3) OARRS reviewed, consistent with Rx [employer] Other 06-29-2023 Evaluation note* Encounter Date Diagnosis Assessment Notes Treatment Notes Treatment Clinical Notes Apr, Cancer associated pain (ICD-10 - G89.3) OARRS reviewed, consistent with Rx [employer] Other 06-15-2023 Evaluation note* Encounter Date Diagnosis [...] q4-6h PRN without change Continue Gabapentin at [employer] Other 06-01-2023 Evaluation note* Encounter Date Diagnosis Assessment Notes Treatment Notes Treatment Clinical Notes Apr, Cancer associated pain (ICD-10 - G89.3) OARRS reviewed, consistent with Rx [employer] Other 05-10-2023 Progress note Author Fabiola Marinelli [facility] March 11, 2023 9:43amNote Date/TimeMay 2022 9:04[facility] [place] [address] Hem/Onc Follow Up Note - OP Signed Patient: Mojgan Pérez MR#: [id number] : 1955 Acct:[id number] Age/Sex: 67 / F Type: REG RCR Copies to: MD Yinka Downey MD Ehsan Malek, MD Katherine M McGraw, FIBRE TECHNOLOGIST~ Subjective Date/Time of Service: Date of Service: [...] which she would need to receive at [facility]. F/u with me in 2 weeks--if persistent [...] about 3 to 4 weeks, possibly with lead c developer covering at that time. Patient expressed understanding. [...] follow-up as directed. Planning a trip to [place] on March 06, therefore we will hold [...] December 2020 to 60.2 in October 2021. [place] lambda ratio has also started to decline to 0.21 in October 2021. For now I'm continuing her daratumumab with Revlimid at current dosing, but I contacted Dr. Benavidez at [facility] for CAR-T celleligibility. If he has recommendations [...] and myeloma labs (follow quant immunoglobulins and [place]/Lambda light chain ratio with skeletal survey in 2 weeks so results available for appointment). 08/30/2021: Mojgan is here for 2-week follow-up for completion of her palliative radiation therapywith significant improvement of pain in her right hip and pelvis. We sent her for echocardiogram performed 08/23/[address] [facility] heart and vascular [place] as baseline for possible Kyprolis therapy. This returned with ejection fraction 60% which is normal with grade 1 left ventricular diastolic dysfunction and 1+ tricuspid valve regurgitation and trace to 1+ aortic valve regurgitation.Otherwise unremarkable. I discussed her case with Dr. Benavidez of malignant hematology at [facility]. He advised against Kyprolis therapy given her [...] spike). Slowly improving IgG to near normal. [place]/lambda light chain ratio normal with mildly increased [...] daughter) for cycle 8, week 2 followup [id number] mg/kg IV weekly, Dexamethasone 20mg weekly, and [...] symptoms--improving thrombocytopenia to 79,000 and improved leukopenia. 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 Still [...] her case with Dr. Piter Benavidez at [facility] malignant hematology for optimal regimen. The [...] request prior liver biopsy and records from [facility] liver clinic. The patient and her son (by telephone) expressed understanding and will follow- up as directed in 2 weeks for consent and likely start of therapy. --04/02/2020: Mojgan presents after infusion port placement at [facility] by interventional radiology due to platelet count [...] (for liver dysfunction) 0.7mg/m2 D1,D4,D8, D11, and Triytfzrwwtye36qf IV weekly--repeat for every 3 week cycles [...] GERD, and fibromyalgia [facility] to moderate [facility]. She states that she was followed with Dr. Kumari prior to his senior living and was told that she had an [...] from her liver ultrasound ordered by Dr. Reema Killian 2017. Initial consultation with me March 16, 2017. [...] The treatments were given with AP/PA vaz [id number] MV photons and MLC blocks. 3. Deferred [...] nonalcoholic steatohepatitis with cirrhosis, previously followed by [facility] gastroenterology. Cardiovascular: No Chest Pain, No Edema, [...] 596, IgA 26 L, IgM 27, Free [place] LC, Quant 9.6, Free LambdaLC, Quant 128.9 H, Free [place]/Lambda Ratio 0.07 L 03/09/23 12:25: PHA Creatinine Clear 69.82, Sodium 142, Potassium 3.7, Chloride 105, Carbon Kxfnsbc10.8, Anion Gap 12.9, BUN 17, Creatinine 0.54 [...] % (Auto) 56.5, Lymph % (Auto) 30.2, Briscoe % (Auto) 11.1, Eos % (Auto) 2.1, Baso % (Auto) 0.1, Nucleat RBC Rel Count 0.0, Neut # (Auto) 1.4 L, Lymph # (Auto) 0.7 L, Briscoe # (Auto) 0.3, Eos # (Auto) 0.1, [...] Staging Staging: Stage IIIA Multiple Myeloma ([place] criteria) (1) Multiple myeloma Qualifiers: Multiple myeloma [...] [facility] Her persistent thrombocytopenia made her ineligible [...] the patient in hematology tumor board at [facility]. --Infusion port placed 03/22/2020 at [facility] due to low platelets. No complications. --03/12/2020: [...] needed for cytopenias.Evaluation for CAR-T therapy at [facility]. Send myeloma labs and skeletal survey [...] bone marrow biopsy, but this would not change management expert, therefore we will give Pomalyst (now decreasedto [...] immunoglobulins, and kappa/lambda light chains(ok to see PARK MANAGER). --09/17/2022: Mojgan is here for cycle 3 [...] in 6 weeks or sooner as needed. [place]/lambda light chains were reviewed and doshow partial [...] persistent cytopenias and sinusitis. She now has [id number] and platelets 37,000 without bleeding. Relatively stable [...] I previously reviewed her outpatient records from [facility], including review of notes, laboratories, and [...] She continues surveillance with liver clinic at [facility] and I will continue to follow her every 6 months, sooner if newbleeding issues arise. --04/02/2020: We reviewed informed consent for Daratumumab/Velcade/Dexamethasone for active myeloma therapy. I requested prior liver biopsy results and notes from liver clinic at [facility]. Platelet count in 40,000 range but [...] infiltration that may further impairher liver function. [facility] hepatology discussed liver transplant but sheis likely no longer a candidate for this given active myeloma. We chose least hepatotoxic regimen for treatment of her active myeloma with 50% dose reduction of Velcade. Liver function remained stable since start of therapy 04/10/2020. --Requested prior liver biopsy and [facility] liver clinic records. Dose reduction 20% Kyprolis [...] for coordination of care (as documented) and ksxx-ea-ucia counseling of patient and/or family. 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 [employer] Other 04-26-2023 Evaluation note* Encounter Date Diagnosis Assessment Notes Treatment Notes Treatment Clinical Notes Jan, Multiple myeloma (ICD-10 - C90.0 0) Follows with Dr. Marinelli with long history of treatment lines, most current therapy with carfilzomib with cyclophosphamide on hold due to persistent thrombocytopeniaRepeat bone marrow biopsy yesterday (02/24/2023) Jan,ancer associated pain (ICD-10 - G89.3)OARRS reviewed: PCP Dr. Lopez & his in store marketer have been prescribing oxycodone 10 mg tabs [...] of constipation hand out provided to patient [employer] Other 04-19-2023 Progress note Author Fabiola Marinelli [facility] February 18, 2023 8:07pmNote Date/TimeApril 2022 9:54[facility] [place] [address] Hem/Onc Follow Up Note - OP Signed Patient: Mojgan Pérez MR#: [id number] : 1955 Acct:[id number] Age/Sex: 67 / F Type: REG RCR Copies to: MD Yinka Downey MD Katherine M McGraw, FIBRE TECHNOLOGIST~ Subjective Date/Time of Service: Date of Service: [...] which she would need to receive at [facility]. F/u with me in 2 weeks--if persistent [...] about 3 to 4 weeks, possibly with lead c developer covering at that time. Patient expressed understanding. [...] follow-up as directed. Planning a trip to [place] on March 06, therefore we will hold [...] December 2020 to 60.2 in October 2021. [place] lambda ratio has also started to decline to 0.21 in October 2021. For now I'm continuing her daratumumab with Revlimid at current dosing, but I contacted Dr. Benavidez at [facility] for CAR-T celleligibility. If he has recommendations [...] and myeloma labs (follow quant immunoglobulins and [place]/Lambda light chain ratio with skeletal survey in 2 weeks so results available for appointment). 08/30/2021: Mojgan is here for 2-week follow-up for completion of her palliative radiation therapywith significant improvement of pain in her right hip and pelvis. We sent her for echocardiogram performed 08/23/[address] [facility] heart and vascular [place] as baseline for possible Kyprolis therapy. This returned with ejection fraction 60% which is normal with grade 1 left ventricular diastolic dysfunction and 1+ tricuspid valve regurgitation and trace to 1+ aortic valve regurgitation.Otherwise unremarkable. I discussed her case with Dr. Benavidez of malignant hematology at [facility]. He advised against Kyprolis therapy given her [...] spike). Slowly improving IgG to near normal. [place]/lambda light chain ratio normal with mildly increased [...] daughter) for cycle 8, week 2 followup pwmlvahlqfk48 mg/kg IV weekly, Dexamethasone 20mg weekly, and [...] symptoms--improving thrombocytopenia to 79,000 and improved leukopenia. 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 Still [...] her case with Dr. Piter Benavidez at [facility] malignant hematology for optimal regimen. The [...] request prior liver biopsy and records from [facility] liver clinic. The patient and her son (by telephone) expressed understanding and will follow- up as directed in 2 weeks for consent and likely start of therapy. --04/02/2020: Mojgan presents after infusion port placement at [facility] by interventional radiology due to platelet count [...] (for liver dysfunction) 0.7mg/m2 D1,D4,D8, D11, and Yvfhmlthmugyc41nq IV weekly--repeat for every 3 week cycles [...] GERD, and fibromyalgia [facility] mild to moderate [facility]ocyt[facility]. She states that she was followed with Dr. Kumari prior to his senior living and was told that she had an [...] The treatments were given with AP/PA vaz yarkoyzrr76 MV photons and MLC blocks. 3. Deferred [...] Plan change in therapy in 1 month. . 02/19/2022: Continue daratumumab 16 mg/kg IV every [...] Pomalyst due to cytopenias, stopped mid 07/2022. . 07/18/2022: carfilzomib (dose 20mg/m2 day one then [...] nonalcoholic steatohepatitis with cirrhosis, previously followed by [facility] gastroenterology. Cardiovascular: No Chest Pain, No Edema, [...] Sodium 140, Potassium 3.7, Chloride 106, Carbon Rcculeb01.9, Anion Gap 8.8, BUN 13, Creatinine 0.45 [...] % (Auto) N/A, Lymph % (Auto) N/A, Briscoe % (Auto) N/A, Eos % (Auto) N/A, Baso % (Auto) N/A, Nucleat RBC Rel Count N/A, Neut # (Auto) N/A, Lymph # (Auto) N/A, Briscoe # (Auto) N/A, Eos # (Auto) N/A, Baso # (Auto) N/A, Lymphocytes %20, Monocytes % 4, Eosinophils % 4 H, Segmented Neutrophils 66, Other Cell Type 7 H, Platelet Estimate Decreased, Plt Morphology Comment Normal,RBC Morphology N/A, Polychromasia Slight, Poikilocytosis Slight, Ovalocytes Slight 02/11/23 09:20: PHA Creatinine Clear 70.06, Sodium 141, Potassium 3.8, Chloride 105, Carbon Xdfrwcl78.8, Anion Gap 10.0, BUN 14, Creatinine 0.45 [...] % (Auto) 53.5, Lymph % (Auto) 30.6, Briscoe % (Auto) 11.2, Eos % (Auto) 4.4, Baso % (Auto) 0.3, Nucleat RBC Rel Count 0.0, Neut # (Auto) 0.6 L, Lymph # (Auto) 0.4 L, Briscoe # (Auto) 0.1, Eos # (Auto) 0.1, [...] Staging Staging: Stage IIIA Multiple Myeloma ([place] criteria) (1) Multiple myeloma Qualifiers: Multiple myeloma [...] [facility] Her persistent thrombocytopenia made her ineligible [...] the patient in hematology tumor board at [facility]. --Infusion port placed 03/22/2020 at [facility] due to low platelets. No complications. --03/12/2020: [...] needed for cytopenias.Evaluation for CAR-T therapy at [facility]. Send myeloma labs and skeletal survey [...] bone marrow biopsy, but this would not change management expert, therefore we will give Pomalyst (now decreasedto [...] immunoglobulins, and kappa/lambda light chains(ok to see PARK MANAGER). --09/17/2022: Mojgan is here for cycle 3 [...] in 6 weeks or sooner as needed. [place]/lambda light chains were reviewed and doshow partial [...] persistent cytopenias and sinusitis. She now has TSR612 and platelets 37,000 without bleeding. Relatively stable [...] I previously reviewed her outpatient records from [facility], including review of notes, laboratories, and [...] She continues surveillance with liver clinic at [facility] and I will continue to follow her every 6 months, sooner if newbleeding issues arise. --04/02/2020: We reviewed informed consent for Daratumumab/Velcade/Dexamethasone for active myeloma therapy. I requested prior liver biopsy results and notes from liver clinic at [facility]. Platelet count in 40,000 range but [...] infiltration that may further impairher liver function. [facility] hepatology discussed liver transplant but sheis likely no longer a candidate for this given active myeloma. We chose least hepatotoxic regimen for treatment of her active myeloma with 50% dose reduction of Velcade. Liver function remained stable since start of therapy 04/10/2020. --Requested prior liver biopsy and [facility] liver clinic records. Dose reduction 20% Kyprolis [...] for coordination of care (as documented) and ykxf-ge-xafn counseling of patient and/or family. Dictated By: Fabiola Marinelli MD DD/ 0954 Signed By: <Electronically signed by MD Fabiola Marinelli> 02/18/232006 [facility] Work Phone: 1(366) 871-523703-29-2023 Consult note Author Fabiola Marinelli [facility] January 28, 2023 3:19pmNote Date/TimeMarch 2022 9:[address] [address] Hem/Onc Consult Note - IP Signed with Addenda Patient: Mojgan Pérez MR#: [id number] : 1955 Acct:[id number] Age/Sex: 67 / F Adm Date: 3 Loc: Room: [address] [place] [address] Type: ADM IN Attending Dr: Vicente Linton [...] which she would need to receive at [facility]. F/u with me in 2 weeks--if persistent [...] consent and will receive thisas an outpatient. [facility] - Medical History Medical History: Medical [...] % (Auto) 64.8, Lymph % (Auto) 20.4, Briscoe % (Auto) 12.3, Eos % (Auto) 2.4, Baso % (Auto) 0.1, Nucleat RBC Rel Count 0.4, Neut # (Auto) 1.9, Lymph # (Auto) 0.6 L, Briscoe # (Auto) 0.4, Eos # (Auto) 0.1, Baso # (Auto) 0.0, MonocyteDist Width 19.52, Platelet Estimate Decreased, Plt Morphology Comment Normal, RBC Morphology N/A, Poikilocytosis Moderate, Tear Drop Cells Slight, Ovalocytes Moderate 01/28/23 00:29: Urine Color Dark yellow A, Urine Appearance Turbid A, Urine pH 5.5, Ur Specific [place] 1.023, Urine Protein >=1000 H, Urine Glucose [...] for coordination of care (as documented) and xjww-mr-jkkl counseling of patient and/or family. Documented By: Shannon Gallagher APRN 01/28/23 09 57 Signed By: <Electronically signed by KEITH Gallagher> 01/28/23 1413 <Electronically signed by MD Fabiola Marinelli> 01/28/23 4975 [facility] Work Phone: 1(559) 324-585503-29-2023 Progress note Author Vicente Linton [facility] January 29, 2023 6:23pmNote Date/TimeMarch 2022 2:45[place] [address] Hospitalist Progress Note Signed with Addenda Patient: Mojgan Pérez MR#: [id number] : 1955 Acct:[id number] Age/Sex: 67 / F Adm Date: 3 Loc: Room: [address] [place] [address] Type: DIS IN Attending Dr: Vicente Linton [...] 01/28/23 06:56 Acetaminophen 325 Mg Tablet PO 03/28/24 05:51 650 mg Q6HR PRN Administration Pain [...] 1441 Signed By: <Electronically signed by Vicente Linton DO> 01/28/23 1445 [facility] Work Phone: [phone]) [phone] History and physical note Author Sherif Ravi [facility] January 28, 2023 5:51amNote Date/TimeMarch 2022 5:45[place] [address] Hospitalist H&P Signed Patient: Mojgan Pérez MR#: [id number] : 1955 Acct:[id number] Age/Sex: 67 / F Adm Date: 3 Loc: Room: [address] [place] [address] Type: ADM INOo Attending Dr: Sherif Ravi DO Copies to: MD Sherif Amezquita, DO~ HPI DATE OF EXAMINATION: 01/28/23 CHIEF COMPLAINT: [...] None Social History Comments: Lives with son elvin Trujillo Medications and Allergies Allergies erythromycin base [From [...] % (Auto) 20.4 % (.) 01/28/23 01:10 Briscoe % (Auto) 12.3 % (.) 01/28/23 01:10 Eos % (Auto) 2.4 % (.) 01/28/23 01:10 Baso % (Auto) 0.1 % (.) 01/28/23 01:10 Nucleat RBC Rel Count 0.4 /100 WBC (0-0.5) 01/28/23 01:10 Neut # (Auto) 1.9 x10E3/uL (1.8-7.7) 01/28/23 01:10 Lymph # (Auto) 0.6 x10E3/uL (1.00-4.8) L 01/28/23 01:10 Briscoe # (Auto) 0.4 x10E3/uL (0.0-0.8) 01/28/23 01:10 [...] pH 5.5 (5.0-9.0) 01/28/23 00:29 Ur Specific [place] 1.023 (1.001-1.030) 01/28/23 00:29 Urine Protein >=1000 [...] her thrombocytopenia. Documented By: Sherif Ravi DO 0540 Signed By: <Electronically signed by Sherif Ravi DO> 01/28/23 0551 [facility] Work Phone: [phone]) [phone] Progress note Author Fabiola Marinelli [facility] January 09, 2023 9:59pmNote Date/TimeMarch 2022 11:00[facility] at [address] [address] Hem/Onc Follow Up Note - OP Signed Patient: Mojgan Pérez MR#: [id number] : 1955 Acct:[id number] Age/Sex: 67 / F Type: REG RCR [...] which she would need to receive at [facility]. F/u with me in 2 weeks--if persistent [...] about 3 to 4 weeks, possibly with lead c developer covering at that time. Patient expressed understanding. [...] follow-up as directed. Planning a trip to [place] on March 06, therefore we will hold [...] December 2020 to 60.2 in October 2021. [place] lambda ratio has also started to decline to 0.21 in October 2021. For now I'm continuing her daratumumab with Revlimid at current dosing, but I contacted Dr. Benavidez at [facility] for CAR-T celleligibility. If he has recommendations [...] and myeloma labs (follow quant immunoglobulins and [place]/Lambda light chain ratio with skeletal survey in 2 weeks so results available for appointment). 08/30/2021: Mojgan is here for 2-week follow-up for completion of her palliative radiation therapywith significant improvement of pain in her right hip and pelvis. We sent her for echocardiogram performed 08/23/[address] [facility] heart and vascular [place] as baseline for possible Kyprolis therapy. This returned with ejection fraction 60% which is normal with grade 1 left ventricular diastolic dysfunction and 1+ tricuspid valve regurgitation and trace to 1+ aortic valve regurgitation.Otherwise unremarkable. I discussed her case with Dr. Benavidez of malignant hematology at [facility]. He advised against Kyprolis therapy given her [...] spike). Slowly improving IgG to near normal. [place]/lambda light chain ratio normal with mildly increased [...] daughter) for cycle 8, week 2 followup [id number] mg/kg IV weekly, Dexamethasone 20mg weekly, and [...] symptoms--improving thrombocytopenia to 79,000 and improved leukopenia. 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 Still [...] her case with Dr. Piter Benavidez at [facility] malignant hematology for optimal regimen. The [...] request prior liver biopsy and records from [facility] liver clinic. The patient and her son (by telephone) expressed understanding and will follow- up as directed in 2 weeks for consent and likely start of therapy. --04/02/2020: Mojgan presents after infusion port placement at [facility] by interventional radiology due to platelet count [...] (for liver dysfunction) 0.7mg/m2 D1,D4,D8, D11, and Zxvawtftvperk73ny IV weekly--repeat for every 3 week cycles [...] GERD, and fibromyalgia [facility]. She states that she was followed with Dr. Kumari prior to his senior living and was told that she had an [...] The treatments were given with AP/PA vaz ghixmuvnw22 MV photons and MLC blocks. 3. Deferred [...] nonalcoholic steatohepatitis with cirrhosis, previously followed by [facility] gastroenterology. Cardiovascular: No Chest Pain, No Edema, [...] Sodium 140, Potassium 4.1, Chloride 106, Carbon Trvwgvb73.9, Anion Gap 8.2, BUN 13, Creatinine 0.44 [...] % (Auto) 52.5, Lymph % (Auto) 29.7, Briscoe % (Auto) 14.0, Eos % (Auto) 3.6, Baso % (Auto) 0.2, Nucleat RBC Rel Count 0.1, Neut # (Auto) 0.9 L, Lymph # (Auto) 0.5 L, Briscoe # (Auto) 0.2, Eos # (Auto) 0.1, Baso # (Auto) 0.0,Platelet Estimate Decreased, Plt Morphology Comment Normal, RBC Morphology N/A, Anisocytosis Slight, Macrocytosis Slight, Tear Drop Cells Slight, Ovalocytes Slight 01/01/23 09:50: Free [place] LC, Quant 6.3, Free Lambda LC, Quant 61.3 H, Free [place]/Lambda Ratio 0.10 L - Impressions 12/29/2022: DEXA --AP Spine T-score + 0.1, normal --Left Femoral Neck -1.0, normal --Right Femoral Neck -1.8, osteopenia Assessment and Plan - TNM Staging Staging: Stage IIIA Multiple Myeloma ([place] criteria) (1) Multiple myeloma Qualifiers: Multiple myeloma [...] [facility] Her persistent thrombocytopenia made her ineligible [...] --I discussed her case with Dr. Piter Malek of malignant hematology, possibly presenting the patient in hematology tumor board at [facility]. --Infusion port placed 03/22/2020 at [facility] due to low platelets. No complications. --03/12/2020: [...] needed for cytopenias.Evaluation for CAR-T therapy at [facility]. Send myeloma labs and skeletal survey [...] bone marrow biopsy, but this would not change management expert, therefore we will give Pomalyst (now decreasedto [...] immunoglobulins, and kappa/lambda light chains(ok to see PARK MANAGER). --09/17/2022: Mojgan is here for cycle 3 [...] in 6 weeks or sooner as needed. [place]/lambda light chains were reviewed and doshow partial [...] persistent cytopenias and sinusitis. She now has PLC018 and platelets 37,000 without bleeding. Relatively stable [...] I previously reviewed her outpatient records from [facility], including review of notes, laboratories, and [...] She continues surveillance with liver clinic at [facility] and I will continue to follow her every 6 months, sooner if newbleeding issues arise. --04/02/2020: We reviewed informed consent for Daratumumab/Velcade/Dexamethasone for active myeloma therapy. I requested prior liver biopsy results and notes from liver clinic at [facility]. Platelet count in 40,000 range but [...] infiltration that may further impairher liver function. [facility] hepatology discussed liver transplant but sheis likely no longer a candidate for this given active myeloma. We chose least hepatotoxic regimen for treatment of her active myeloma with 50% dose reduction of Velcade. Liver function remained stable since start of therapy 04/10/2020. --Requested prior liver biopsy and [facility] liver clinic records. Dose reduction 20% Kyprolis [...] for coordination of care (as documented) and dpzz-eq-usyr counseling of patient and/or family. Dictated By: Fabiola Marinelli MD DD/ 1059 Signed By: <Electronically signed by MD Fbaiola Marinelli> 01/09/23 2152 [facility] Work Phone: 1(365) 973-407302-25-2023 Progress note Author Fabiola Marinelli [facility] December 27, 2022 9:59amNote Date/TimeFebruary 2022 9:41[facility] [place] [address] Hem/Onc Follow Up Note - OP Signed Patient: Mojgan Pérez MR#: [id number] : 1955 Acct:[id number] Age/Sex: 67 / F Type: REG RCR [...] which she would need to receive at [facility]. F/u with me in 2 weeks--if persistent [...] as 25-31,000 without bleeding (currently 40,000), WBC fx0623 with ANC 700. No current fever, chills [...] about 3 to 4 weeks, possibly with lead c developer covering at that time. Patient expressed understanding. [...] follow-up as directed. Planning a trip to [place] on May 5, therefore we will hold Revlimid until arrival [...] December 2020 to 60.2 in October 2021. [place] lambda ratio has also started to decline to 0.21 in October 2021. For now I'm continuing her daratumumab with Revlimid at current dosing, but I contacted Dr. Benavidez at [facility] for CAR-T celleligibility. If he has recommendations [...] and myeloma labs (follow quant immunoglobulins and [place]/Lambda light chain ratio with skeletal survey in 2 weeks so results available for appointment). 08/30/2021: Mojgan is here for 2-week follow-up for completion of her palliative radiation therapywith significant improvement of pain in her right hip and pelvis. We sent her for echocardiogram performed 08/23/[address] [facility] heart and vascular [place] as baseline for possible Kyprolis therapy. This returned with ejection fraction 60% which is normal with grade 1 left ventricular diastolic dysfunction and 1+ tricuspid valve regurgitation and trace to 1+ aortic valve regurgitation.Otherwise unremarkable. I discussed her case with Dr. Benavidez of malignant hematology at [facility]. He advised against Kyprolis therapy given her [...] spike). Slowly improving IgG to near normal. [place]/lambda light chain ratio normal with mildly increased [...] daughter) for cycle 8, week 2 followup [id number] mg/kg IV weekly, Dexamethasone 20mg weekly, and [...] symptoms--improving thrombocytopenia to 79,000 and improved leukopenia. 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 Still has improvement of M-spike, IgA normal and decreased lambda light chain and K/L ratio. We discussed that week 25 in Oct she will change to monthly daratumumab with weekly Velcade (1mg/m2) and Dexamethasone. Continue to follow every 6-8 weeks until maintenance schedule. 06/18/2020: Mjogan is here for cycle 3 week 3 [...] her case with Dr. Piter Benavidez at [facility] malignant hematology for optimal regimen. The [...] request prior liver biopsy and records from [facility] liver clinic. The patient and her son (by telephone) expressed understanding and will follow- up as directed in 2 weeks for consent and likely start of therapy. --04/02/2020: Mojgan presents after infusion port placement at [facility] by interventional radiology due to platelet count [...] (for liver dysfunction) 0.7mg/m2 D1,D4,D8, D11, and Lonmeuwwnjepr72qm IV weekly--repeat for every 3 week cycles [...] GERD, and fibromyalgia who was [facility] mild to moderate [facility]ocyt[facility]. She states that she was followed with Dr. Kumari prior to his senior living and was told that she had an [...] The treatments were given with AP/PA vaz [id number] MV photons and MLC blocks. 3. Deferred [...] nonalcoholic steatohepatitis with cirrhosis, previously followed by [facility] gastroenterology. Cardiovascular: No Chest Pain, No Edema, [...] Sodium 138, Potassium 3.6, Chloride 106, Carbon Ldddxje79.9, Anion Gap 8.7, BUN 8 L, Creatinine [...] % (Auto) 51.7, Lymph % (Auto) 28.3, [place]isco[place] % (Auto) 15.7, Eos % (Auto) 4.0, Baso % (Auto) 0.3, Nucleat RBC Rel Count 0.1, Neut # (Auto) 0.9 L, Lymph # (Auto) 0.5 L, [place]iscoe # (Auto) 0.3, Eos # (Auto) 0.1, Baso # (Auto) 0.0,Platelet Estimate Decreased, Plt Morphology Comment Normal, RBC Morphology N/A, Polychromasia Slight, Poikilocytosis Slight, Anisocytosis Slight, Microcytosis Slight, Ovalocytes Slight 12/18/22 14:15: Free [place] LC, Quant 5.8, Free Lambda LC, Quant 41.7 H, Free [place]/Lambda Ratio 0.14 L - Impressions CT sinus [...] Date of Service: 11/06/2203/24/731 ECH/ECH echo transthoracic: snf drug therapy Copies to: MD Phil Downey MD~ BSA: 1.9 m2 BP: 116/74 mmHg HR: 81 Reason For Study: intermediate card tender drug therapy History: No known cardaic history [...] Staging Staging: Stage IIIA Multiple Myeloma ([place] criteria) (1) Multiple myeloma Qualifiers: Multiple myeloma [...] [facility] Her [facility]ocytopenia made her ineligible [...] the patient in hematology tumor board at [facility]. --Infusion port placed 03/22/2020 at [facility] due to low platelets. No complications. --03/12/2020: [...] needed for cytopenias.Evaluation for CAR-T therapy at [facility]. Send myeloma labs and skeletal survey [...] bone marrow biopsy, but this would not change management expert, therefore we will give Pomalyst (now decreasedto [...] and kappa/lambda light chains (ok to see PARK MANAGER). --09/17/2022: Mojgan is here for cycle 3 [...] in 6 weeks or sooner as needed. [place]/lambda light chains were reviewed and doshow partial [...] persistent cytopenias and sinusitis. She now has [id number] and platelets 37,000 without bleeding. Relatively stable [...] I previously reviewed her outpatient records from [facility], including review of notes, laboratories, and [...] She continues surveillance with liver clinic at [facility] and I will continue to follow her every 6 months, sooner if newbleeding issues arise. --04/02/2020: We reviewed informed consent for Daratumumab/Velcade/Dexamethasone for active myeloma therapy. I requested prior liver biopsy results and notes from liver clinic at [facility]. Platelet count in 40,000 range but [...] infiltration that may further impairher liver function. [facility] hepatology discussed liver transplant but sheis likely no longer a candidate for this given active myeloma. We chose least hepatotoxic regimen for treatment of her active myeloma with 50% dose reduction of Velcade. Liver function remained stable since start of therapy 04/10/2020. --Requested prior liver biopsy and [facility] liver clinic records. Dose reduction 20% Kyprolis [...] for coordination of care (as documented) and gkms-zo-cczb counseling of patient and/or family. Dictated By: Fabiola Marinelli MD DD/ 0940 Signed By: <Electronically signed by MD Fabiola Marinelli> 12/27/22 [address] [facility] Work Phone: [phone]) 978-183601-25-2023 Progress note Author Fabiola Marinelli [facility] November 26, 2022 6:57pmNote Date/TimeJan2022 10:53[facility] [place] [address] Hem/Onc Follow Up Note - OP Signed Patient: Mojgan Pérez MR#: [id number] : 1955 Acct:[id number] Age/Sex: 67 / F Type: REG RCR [...] about 3 to 4 weeks, possibly with lead c developer covering at that time. Patient expressed understanding. [...] follow-up as directed. Planning a trip to [place] on March 06, therefore we will hold [...] December 2020 to 60.2 in October 2021. [place] lambda ratio has also started to decline to 0.21 in October 2021. For now I'm continuing her daratumumab with Revlimid at current dosing, but I contacted Dr. Benavidez at [facility] for CAR-T celleligibility. If he has recommendations [...] and myeloma labs (follow quant immunoglobulins and [place]/Lambda light chain ratio with skeletal survey in 2 weeks so results available for appointment). 08/30/2021: Mojgan is here for 2-week follow-up for completion of her palliative radiation therapywith significant improvement of pain in her right hip and pelvis. We sent her for echocardiogram performed 08/23/[address] [facility] heart and vascular [place] as baseline for possible Kyprolis therapy. This returned with ejection fraction 60% which is normal with grade 1 left ventricular diastolic dysfunction and 1+ tricuspid valve regurgitation and trace to 1+ aortic valve regurgitation.Otherwise unremarkable. I discussed her case with Dr. Benavidez of malignant hematology at [facility]. He advised against Kyprolis therapy given her [...] spike). Slowly improving IgG to near normal. [place]/lambda light chain ratio normal with mildly increased [...] daughter) for cycle 8, week 2 followup qytnnfdtnsd12 mg/kg IV weekly, Dexamethasone 20mg weekly, and [...] symptoms--improving thrombocytopenia to 79,000 and improved leukopenia. 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 Still [...] her case with Dr. Piter Benavidez at [facility] malignant hematology for optimal regimen. The [...] request prior liver biopsy and records from [facility] liver clinic. The patient and her son (by telephone) expressed understanding and will follow- up as directed in 2 weeks for consent and likely start of therapy. --04/02/2020: Mojgan presents after infusion port placement at [facility] by interventional radiology due to platelet count [...] (for liver dysfunction) 0.7mg/m2 D1,D4,D8, D11, and Ytnfxfdseeajg52ru IV weekly--repeat for every 3 week cycles [...] GERD, and fibromyalgia [facility] to moderate [facility]. She states that she was followed with Dr. Kumari prior to his senior living and was told that she had an [...] The treatments were given with AP/PA vaz [id number] MV photons and MLC blocks. 3. Deferred [...] nonalcoholic steatohepatitis with cirrhosis, previously followed by [facility] gastro[facility]. Cardiovascular: No Chest Pain, No Edema, [...] Sodium 139, Potassium 3.8, Chloride 106, Carbon Dgrwtuo26.2, Anion Gap 10.6, BUN 9, Creatinine 0.41 [...] Neut % (Auto) N/A, Lymph% (Auto) N/A, Brisco[place] % (Auto) N/A, Eos % (Auto) N/A, Baso % (Auto) N/A, Nucleat RBC Rel Count N/A, Neut # (Auto) N/A, Lymph # (Auto) N/A, [place]isco[place] # (Auto) N/A, Eos # (Auto) N/A, [...] Other Results Results/Comments: Date of Service: 11/06/2203/24/731 [facility] transthoracic: snf drug therapy Copies to: MD Phil Downey MD~ BSA: 1.9 m2 BP: 116/74 mmHg HR: 81 Reason For Study: intermediate card tender drug therapy History: No known cardaic history [...] Staging Staging: Stage IIIA Multiple Myeloma ([place] criteria) (1) Multiple myeloma Qualifiers: Multiple myeloma [...] [facility] Her persistent thrombocytopenia made her ineligible [...] the patient in hematology tumor board at [facility]. --Infusion port placed 03/22/2020 at [facility] due to low platelets. No complications. --03/12/2020: [...] needed for cytopenias.Evaluation for CAR-T therapy at [facility]. Send myeloma labs and skeletal survey [...] bone marrow biopsy, but this would not change management expert, therefore we will give Pomalyst (now decreasedto [...] immunoglobulins, and kappa/lambda light chains(ok to see PARK MANAGER). --09/17/2022: Mojgan is here for cycle 3 [...] in 6 weeks or sooner as needed. [place]/lambda light chains were reviewed and doshow partial [...] I previously reviewed her outpatient records from [facility], including review of notes, laboratories, and [...] She continues surveillance with liver clinic at [facility] and I will continue to follow her every 6 months, sooner if newbleeding issues arise. --04/02/2020: We reviewed informed consent for Daratumumab/Velcade/Dexamethasone for active myeloma therapy. I requested prior liver biopsy results and notes from liver clinic at [facility]. Platelet count in 40,000 range but [...] infiltration that may further impairher liver function. [facility] hepatology discussed liver transplant but sheis likely no longer a candidate for this given active myeloma. We chose least hepatotoxic regimen for treatment of her active myeloma with 50% dose reduction of Velcade. Liver function remained stable since start of therapy 04/10/2020. --Requested prior liver biopsy and [facility] liver clinic records. Dose reduction 20% Kyprolis [...] for coordination of care (as documented) and tjji-bu-iqtk counseling of patient and/or family. Dictated By: Fabiola Marinelli MD DD/ 1051 Signed By: <Electronically signed by MD Fabiola Marinelli> 11/26/22 [address] [facility] Work Phone: [phone]) 824-954712-28-2022 Progress note Author Fabiola Marinelli [facility] October 29, 2022 1:17pmNote Date/TimeDecemb2021 11:59[facility] [place] [address] Hem/Onc Follow Up Note - OP Signed Patient: Mojgan Pérez MR#: [id number] : 1955 Acct:[id number] Age/Sex: 67 / F Type: REG RCR [...] about 3 to 4 weeks, possibly with lead c developer covering at that time. Patient expressed understanding. [...] follow-up as directed. Planning a trip to [place] on March 06, therefore we will hold [...] December 2020 to 60.2 in October 2021. [place] lambda ratio has also started to decline to 0.21 in October 2021. For now I'm continuing her daratumumab with Revlimid at current dosing, but I contacted Dr. Benavidez at [facility] for CAR-T celleligibility. If he has recommendations [...] and myeloma labs (follow quant immunoglobulins and [place]/Lambda light chain ratio with skeletal survey in 2 weeks so results available for appointment). 08/30/2021: Mojgan is here for 2-week follow-up for completion of her palliative radiation therapywith significant improvement of pain in her right hip and pelvis. We sent her for echocardiogram performed 08/23/[address] [facility] heart and vascular [place] as baseline for possible Kyprolis therapy. This returned with ejection fraction 60% which is normal with grade 1 left ventricular diastolic dysfunction and 1+ tricuspid valve regurgitation and trace to 1+ aortic valve regurgitation.Otherwise unremarkable. I discussed her case with Dr. Benavidez of malignant hematology at [facility]. He advised against Kyprolis therapy given her [...] spike). Slowly improving IgG to near normal. [place]/lambda light chain ratio normal with mildly increased [...] daughter) for cycle 8, week 2 followup koojfopawxn58 mg/kg IV weekly, Dexamethasone 20mg weekly, and [...] symptoms--improving thrombocytopenia to 79,000 and improved leukopenia. 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 Still [...] her case with Dr. Piter Benavidez at [facility] malignant hematology for optimal regimen. The [...] request prior liver biopsy and records from [facility] liver clinic. The patient and her son (by telephone) expressed understanding and will follow- up as directed in 2 weeks for consent and likely start of therapy. --04/02/2020: Mojgan presents after infusion port placement at [facility] by interventional radiology due to platelet count [...] (for liver dysfunction) 0.7mg/m2 D1,D4,D8, D11, and Qkmcepjfyvkak47cq IV weekly--repeat for every 3 week cycles [...] GERD, and fibromyalgia who [facility] chronic mild to moderate thrombocytopenia. She states that she was followed with Dr. Kumari prior to his senior living and was told that she had an [...] The treatments were given with AP/PA vaz ubyjrmhtu44 MV photons and MLC blocks. 3. Deferred [...] nonalcoholic steatohepatitis with cirrhosis, previously followed by [facility] gastroenterology. Cardiovascular: No Chest Pain, No Edema, [...] Social History Comments: Lives with son a [facility] Home Medications & Allergies Allergies erythromycin [...] % (Auto) 42.1, Lymph % (Auto) 42.1, [place]isco[place] % (Auto) 10.9, Eos% (Auto) 4.6, Baso % (Auto) 0.3, Nucleat RBC Rel Count 0.4, Neut # (Auto) 0.4 L,Lymph # (Auto) 0.4 L, [place] # (Auto) 0.1, Eos # (Auto) 0.0, Baso # (Auto) 0.0, Platelet Estimate Decreased, Large Platelets Slight, Plt Morphology Comment N/A,RBC Morphology N/A, Macrocytosis Slight, Tear Drop Cells Slight - Impressions No new imaging for review. Assessment and Plan - TNM Staging Staging: Stage IIIA Multiple Myeloma ([place] criteria) (1) Multiple myeloma Qualifiers: Multiple myeloma [...] [facility] Her persistent thrombocytopenia made her ineligible [...] the patient in hematology tumor board at [facility]. --Infusion port placed 03/22/2020 at [facility] due to low platelets. No complications. --03/12/2020: [...] needed for cytopenias.Evaluation for CAR-T therapy at [facility]. Send myeloma labs and skeletal survey [...] bone marrow biopsy, but this would not change management expert, therefore we will give Pomalyst (now decreasedto [...] immunoglobulins, and kappa/lambda light chains(ok to see PARK MANAGER). --09/17/2022: Mojgan is here for cycle 3 [...] in 6 weeks or sooner as needed. [place]/lambda light chains were reviewed and doshow partial [...] I previously reviewed her outpatient records from [facility], including review of notes, laboratories, and [...] She continues surveillance with liver clinic at [facility] and I will continue to follow her every 6 months, sooner if newbleeding issues arise. --04/02/2020: We reviewed informed consent for Daratumumab/Velcade/Dexamethasone for active myeloma therapy. I requested prior liver biopsy results and notes from liver clinic at [facility]. Platelet count in 40,000 range but [...] infiltration that may further impairher liver function. [facility] hepatology discussed liver transplant but sheis likely no longer a candidate for this given active myeloma. We chose least hepatotoxic regimen for treatment of her active myeloma with 50% dose reduction of Velcade. Liver function remained stable since start of therapy 04/10/2020. --Requested prior liver biopsy and [facility] liver clinic records. Dose reduction 20% Kyprolis [...] for coordination of care (as documented) and tkam-xe-msmb counseling of patient and/or family. Dictated By: Fabiola Marinelli MD DD/ 1153 Signed By: <Electronically signed by MD Fabiola Marinelli> 10/29/22 [address] [facility] Work Phone: 1([phone]) 531-472012-14-2022 Progress note Author Shannon Gallagher [facility] October 15, 2022 11:04amNote Date/TimeDecember 2021 10:48[facility] [place] [address] Hem/Onc Follow Up Note - OP Signed Patient: Mojgan Pérez MR#: [id number] : 1955 Acct:[id number] Age/Sex: 67 / F Type: REG RCR [...] about 3 to 4 weeks, possibly with lead c developer covering at that time. Patient expressed understanding. [...] follow-up as directed. Planning a trip to [place] on March 06, therefore we will hold [...] December 2020 to 60.2 in October 2021. [place] lambda ratio has also started to decline to 0.21 in October 2021. For now I'm continuing her daratumumab with Revlimid at current dosing, but I contacted Dr. Benavidez at [facility] for CAR-T celleligibility. If he has recommendations [...] and myeloma labs (follow quant immunoglobulins and [place]/Lambda light chain ratio with skeletal survey in 2 weeks so results available for appointment). 08/30/2021: Mojgan is here for 2-week follow-up for completion of her palliative radiation therapywith significant improvement of pain in her right hip and pelvis. We sent her [facility] [facility] [place] [facility] baseline for possible Kyprolistherapy. This returned with ejection fraction 60% which is normal with grade 1 left ventricular diastolic dysfunction and 1+ tricuspid valve regurgitation and traceto 1+ aortic valve regurgitation. Otherwise unremarkable. I discussed her casewith Dr. Benavidez of malignant hematology at [facility]. He advised against Kyprolis therapy given her [...] spike). Slowly improving IgG to near normal. [place]/lambda light chain ratio normal with mildly increased [...] daughter) for cycle 8, week 2 followup bharqjnkats48 mg/kg IV weekly, Dexamethasone 20mg weekly, and [...] symptoms--improving thrombocytopenia to 79,000 and improved leukopenia. 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 Still [...] her case with Dr. Piter Benavidez at [facility] malignant hematology for optimal regimen. The [...] identified. No pathologic fractures were seen. --03/05/2020: Mojagn notes improvement of bilateral hip pain since [...] request prior liver biopsy and records from [facility] liver clinic. The patient and her son (by telephone) expressed understanding and will follow- up as directed in 2 weeks for consent and likely start of therapy. --04/02/2020: Mojgan presents after infusion port placement at [facility] by interventional radiology due to platelet count [...] (for liver dysfunction) 0.7mg/m2 D1,D4,D8, D11, and Hoqffcybdkqqi49pt IV weekly--repeat for every 3 week cycles [...] GERD, and fibromyalgia who [facility] chronic mild to moderate thrombocytopenia. She states that she was followed with Dr. Kumari prior to his senior living and was told that she had an [...] The treatments were given with AP/PA vaz [id number] MV photons and MLC blocks. 3. Deferred [...] 05/01/20 09:33 DB (Rec: 05/01/20 09:[address] [facility]-NS-03) Distress Screening Distress Score: 0 No [...] % (Auto) 55.1, Lymph % (Auto) 23.7, [place] % (Auto) 17.3, Eos % (Auto) 3.6, Baso % (Auto) 0.3, Nucleat RBC Rel Count 0.1,Neut # (Auto) 1.0 L, Lymph # (Auto) 0.4 L, [place] # (Auto) 0.3, Eos # (Auto) 0.1, Baso # (Auto) 0.0, Platelet Estimate Decreased, Plt Morphology Comment Normal, RBC Morphology N/A, Polychromasia Slight, Poikilocytosis Slight, Anisocytosis Slight, Tear Drop Cells Slight Assessment and Plan - TNM Staging Staging: Stage IIIA Multiple Myeloma ([place] criteria) (1) Multiple myeloma Qualifiers: Multiple myeloma [...] [facility] Her persistent thromb[facility]openia made her ineligible [...] the patient in hematology tumor board at [facility]. --Infusion port placed 03/22/2020 at [facility] due to low platelets. No complications. --03/12/2020: [...] needed for cytopenias.Evaluation for CAR-T therapy at [facility]. Send myeloma labs and skeletal survey [...] bone marrow biopsy, but this would not change management expert, therefore we will give Pomalyst (now decreasedto [...] immunoglobulins, and kappa/lambda light chains(ok to see PARK MANAGER). --09/17/2022: Mojgan is here for cycle 3 [...] I previously reviewed her outpatient records from [facility], including review of notes, laboratories, and [...] She continues surveillance with liver clinic at [facility] and I will continue to follow her every 6 months, sooner if newbleeding issues arise. --04/02/2020: We reviewed informed consent for Daratumumab/Velcade/Dexamethasone for active myeloma therapy. I requested prior liver biopsy results and notes from liver clinic at [facility]. Platelet count in 40,000 range but [...] infiltration that may further impairher liver function. [facility] hepatology discussed liver transplant but sheis likely no longer a candidate for this given active myeloma. We chose least hepatotoxic regimen for treatment of her active myeloma with 50% dose reduction of Velcade. Liver function remained stable since start of therapy 04/10/2020. --Requested prior liver biopsy and [facility] liver clinic records. Dose reduction 20% Kyprolis [...] for coordination of care (as documented) and uvge-xf-mest counseling of patient and/or family. Dictated By: Shannon Gallagher APRN DD/ 1048 Signed By: <Electronically signed by KEITH Gallagher> 10/15/22 [address] [facility] Work Phone: [phone]) 795-204612-12-2022 History of Present illness Narrative* Juan J Mendez MD - 10/13/2022 4:03 PM EST SUBJECTIVE: Mojgan Pérez is a 67 year old female. Patient presents with: Cardiology Follow Up Mojgan Pérez was referred by Self HPI: The patient is a pleasant, 67-year-old female, who underwent extensive evaluation at the [facility], April 2019, after presenting with chest [...] Yes, Claudication:No CONDITIONS: Hypertension: Yes, Heart failure:No, [place] [employer] Functional Classification: Class II, Atrial [...] file Gets together: Not on file Attends tenriism service: Not on file Active member of [...] pacemaker/ICD:No, Median sternotomy scar:No, Sternal instability:No CARDIAC: [place] beat not localized, Cardiac thrill:No, Heart rate [...] test R94.39 4. Coronary artery disease involving [place] coronary artery of [place] heart without angina wsysgwokR19.10 Juan J Mendez MD documented [facility]12[facility]22 Miscellaneous Notes* Telephone Encounter - Cheyenne Guerrero MA - 10/13/2022 3:35 PM EST Received records (ECHO report, US, CXR, etc) from [facility]. Pt has appt today at [address] Mendez to review these. Copy sent for scanning. documented in this encounterSouthern [facility] Center11-20-2022 Progress note Author Shannon Gallagher [facility] September 21, 2022 7:35pmNote Date/TimeNovember 2021 10:18[facility] [place] [address] Hem/Onc Follow Up Note - OP Signed Patient: Mojgan Pérez MR#: [id number] : 1955 Acct:[id number] Age/Sex: 67 / F Type: REG RCR [...] about 3 to 4 weeks, possibly with lead c developer covering at that time. Patient expressed understanding. [...] follow-up as directed. Planning a trip to [place] on March 06, therefore we will hold [...] in December 2020 to 60.2 inDecember 2020. [place] lambda ratio has also started to decline to 0.21 in D ec2020. For now I'm continuing her daratumumab with Revlimid at current dosing, but I contacted Dr. Benavidez at [facility] for CAR-T cell eligibility. If he has [...] and myeloma labs (follow quant immunoglobulins and [place]/Lambda light chain ratio with skeletal survey in 2 weeks so results available for appointment). 08/30/2021: Mojgan is here for 2-week follow-up for completion of her palliative radiation therapywith significant improvement of pain in her right hip and pelvis. We sent her for echocardiogram performed 08/23/[address] [facility] heart and vascular [place] as baseline for possible Kyprolis therapy. This returned with ejection fraction 60% which is normal with grade 1 left ventricular diastolic dysfunction and 1+ tricuspid valve regurgitation and trace to 1+ aortic valve regurgitation.Otherwise unremarkable. I discussed her case with Dr. Benavidez of malignant hematology at [facility]. He advised against Kyprolis therapy given her [...] spike). Slowly improving IgG to near normal. [place]/lambda light chain ratio normal with mildly increased [...] daughter) for cycle 8, week 2 followup uyhalltandt74 mg/kg IV weekly, Dexamethasone 20mg weekly, and [...] symptoms--improving thrombocytopenia to 79,000 and improved leukopenia. 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 Still [...] her case with Dr. Piter Benavidez at [facility] malignant hematology for optimal regimen. The [...] request prior liver biopsy and records from [facility] liver clinic. The patient and her son (by telephone) expressed understanding and will follow- up as directed in 2 weeks for consent and likely start of therapy. --04/02/2020: Mojgan presents after infusion port placement at [facility] by interventional radiology due to platelet count [...] (for liver dysfunction) 0.7mg/m2 D1,D4,D8, D11, and Ocjvupbmywcew32zi IV weekly--repeat for every 3 week cycles [...] GERD, and fibromyalgia [facility]. She states that she was followed with Dr. Kumari prior to his senior living and was told that she had an [...] The treatments were given with AP/PA vaz alvnssokd80 MV photons and MLC blocks. 3. Deferred [...] and thrombocytopenia. Stillpending evaluation for CAR-T therapy. 01/22/2022: Patient is not deemed a candidate [...] Sodium 137, Potassium 3.6, Chloride 105, Carbon Ghkdonf42.8, Anion Gap 8.8, BUN 12, Creatinine 0.43 [...] % (Auto) 45.3, Lymph % (Auto) 35.7, Briscoe % (Auto) 16.8, Eos % (Auto) 2.0, Baso % (Auto) 0.2, Neut # (Auto) 0.6 L, Lymph# (Auto) 0.5 L, Briscoe # (Auto) 0.2, Eos # (Auto) 0.0, Baso # (Auto) 0.0, Nucleated RBC % (auto) 0.1,Platelet Estimate Decreased L, Plt Morphology Comment Normal, RBC Morphology N/A, Polychromasia Slight, Anisocytosis Slight, Macrocytosis Slight 09/12/22 14:00: PHA Creatinine Clear 69.98, Sodium 138, Potassium 3.9, Chloride 105, Carbon Mlelbgo43.8, Anion Gap 10.1, BUN 13, Creatinine 0.50, [...] Neut % (Auto) N/A, Lymph% (Auto) N/A, Briscoe % (Auto) N/A, Eos % (Auto) N/A, Baso % (Auto) N/A, Neut # (Auto) N/A, Lymph # (Auto) N/A, Briscoe# (Auto) N/A, Eos # (Auto) N/A, Baso [...] IgA 20 L, IgM 8 L, Free [place] LC, Quant 6.5, Free Lambda LC, Quant 44.3 H, Free [place]/Lambda Ratio 0.15 L 09/09/22 14:05: IgG 333 L, IgA 20 L, IgM 9 L, Free [place] LC, Quant 6.9, Free Lambda LC, Quant 40.2 H, Free [place]/Lambda Ratio 0.17 L Assessment and Plan - TNM Staging Staging: Stage IIIA Multiple Myeloma ([place] criteria) (1) Multiple myeloma Qualifiers: Multiple myeloma [...] [facility]ocytopenia made her ineligible [...] the patient in hematology tumor board at [facility]. --Infusion port placed 03/22/2020 at [facility] due to low platelets. No complications. --03/12/2020: [...] needed for cytopenias.Evaluation for CAR-T therapy at [facility]. Send myeloma labs and skeletal survey [...] bone marrow biopsy, but this would not change management expert, therefore we will give Pomalyst (now decreasedto [...] and kappa/lambda light chains (ok to see PARK MANAGER). --09/17/2022: Mojgan is here for cycle 3 [...] I previously reviewed her outpatient records from [facility], including review of notes, laboratories, and [...] She continues surveillance with liver clinic at [facility] and I will continue to follow her every 6 months, sooner if newbleeding issues arise. --04/02/2020: We reviewed informed consent for Daratumumab/Velcade/Dexamethasone for active myeloma therapy. I requested prior liver biopsy results and notes from liver clinic at [facility]. Platelet count in 40,000 range but [...] infiltration that may further impairher liver function. [facility] hepatology discussed liver transplant but sheis likely no longer a candidate for this given active myeloma. We chose least hepatotoxic regimen for treatment of her active myeloma with 50% dose reduction of Velcade. Liver function remained stable since start of therapy 04/10/2020. --Requested prior liver biopsy and [facility] liver clinic records. Dose reduction 20% Kyprolis [...] for coordination of care (as documented) and xqke-nw-kzef counseling of patient and/or family. Dictated By: Shannon Gallagher APRN DD/ [id number] Signed By: <Electronically signed by KEITH Gallagher> 09/21/22 [address] [facility] Work Phone: [phone]) [phone] Progress note Author Shannon Gallagher [facility] September 21, 2022 7:35pmNote Date/TimeNovember 2021 10:18[facility] [place] [address] Hem/Onc Follow Up Note - OP Signed Patient: Mojgan Pérez MR#: [id number] : 1955 Acct:[id number] Age/Sex: 67 / F Type: REG RCR [...] about 3 to 4 weeks, possibly with lead c developer covering at that time. Patient expressed understanding. [...] follow-up as directed. Planning a trip to [place] on March 06, therefore we will hold [...] in December 2020 to 60.2 inDecember 2020. [place] lambda ratio has also started to decline to 0.21 in 2020. For now I'm continuing her daratumumab with Revlimid at current dosing, but I contacted Dr. Benavidez at [facility] for CAR-T cell eligibility. If he has [...] and myeloma labs (follow quant immunoglobulins and [place]/Lambda light chain ratio with skeletal survey in 2 weeks so results available for appointment). 08/30/2021: Mojgan is here for 2-week follow-up for completion of her palliative radiation therapywith significant improvement of pain in her right hip and pelvis. We sent her for echocardiogram performed 08/23/[address] [facility] heart and vascular [place] as baseline for possible Kyprolis therapy. This returned with ejection fraction 60% which is normal with grade 1 left ventricular diastolic dysfunction and 1+ tricuspid valve regurgitation and trace to 1+ aortic valve regurgitation.Otherwise unremarkable. I discussed her case with Dr. Benavidez of malignant hematology at [facility]. He advised against Kyprolis therapy given her [...] spike). Slowly improving IgG to near normal. [place]/lambda light chain ratio normal with mildly increased [...] daughter) for cycle 8, week 2 followup rjlbbedlpif50 mg/kg IV weekly, Dexamethasone 20mg weekly, and [...] symptoms--improving thrombocytopenia to 79,000 and improved leukopenia. 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 Still [...] her case with Dr. Piter Benavidez at [facility] malignant hematology for optimal regimen. The [...] request prior liver biopsy and records from [facility] liver clinic. The patient and her son (by telephone) expressed understanding and will follow- up as directed in 2 weeks for consent and likely start of therapy. --04/02/2020: Mojgan presents after infusion port placement at [facility] by interventional radiology due to platelet count [...] (for liver dysfunction) 0.7mg/m2 D1,D4,D8, D11, and Tmmugxohvztwo67sb IV weekly--repeat for every 3 week cycles [...] GERD, and fibromyalgia [facility] mild to moderate [facility]. She states that she was followed with Dr. Kumari prior to his senior living and was told that she had an [...] The treatments were given with AP/PA vaz uxgmctgnx02 MV photons and MLC blocks. 3. Deferred [...] Social History Comments: [facility] Home Medications & Allergies Allergies [...] Sodium 137, Potassium 3.6, Chloride 105, Carbon Huzozlb75.8, Anion Gap 8.8, BUN 12, Creatinine 0.43 [...] % (Auto) 45.3, Lymph % (Auto) 35.7, Briscoe % (Auto) 16.8, Eos % (Auto) 2.0, Baso % (Auto) 0.2, Neut # (Auto) 0.6 L, Lymph# (Auto) 0.5 L, [place]iscoe # (Auto) 0.2, Eos # (Auto) 0.0, Baso # (Auto) 0.0, Nucleated RBC % (auto) 0.1,Platelet Estimate Decreased L, Plt Morphology Comment Normal, RBC Morphology N/A, Polychromasia Slight, Anisocytosis Slight, Macrocytosis Slight 09/12/22 14:00: PHA Creatinine Clear 69.98, Sodium 138, Potassium 3.9, Chloride 105, Carbon Qpogmaz07.8, Anion Gap 10.1, BUN 13, Creatinine 0.50, [...] Neut % (Auto) N/A, Lymph% (Auto) N/A, Briscoe % (Auto) N/A, Eos % (Auto) N/A, Baso % (Auto) N/A, Neut # (Auto) N/A, Lymph # (Auto) N/A, Briscoe# (Auto) N/A, Eos # (Auto) N/A, Baso [...] IgA 20 L, IgM 8 L, Free [place] LC, Quant 6.5, Free Lambda LC, Quant 44.3 H, Free [place]/Lambda Ratio 0.15 L 09/09/22 14:05: IgG 333 L, IgA 20 L, IgM 9 L, Free [place] LC, Quant 6.9, Free Lambda LC, Quant 40.2 H, Free [place]/Lambda Ratio 0.17 L Assessment and Plan - TNM Staging Staging: Stage IIIA Multiple Myeloma ([place] criteria) (1) Multiple myeloma Qualifiers: Multiple myeloma [...] [facility] Her persistent [facility] made her ineligible [...] the patient in hematology tumor board at [facility]. --Infusion port placed 03/22/2020 at [facility] due to low platelets. No complications. --03/12/2020: [...] needed for cytopenias.Evaluation for CAR-T therapy at [facility]. Send myeloma labs and skeletal survey [...] bone marrow biopsy, but this would not change management expert, therefore we will give Pomalyst (now decreasedto [...] and kappa/lambda light chains (ok to see PARK MANAGER). --09/17/2022: Mojgan is here for cycle 3 [...] I previously reviewed her outpatient records from [facility] [place], including review of notes, laboratories, and [...] She continues surveillance with liver clinic at [facility] and I will continue to follow her every 6 months, sooner if newbleeding issues arise. --04/02/2020: We reviewed informed consent for Daratumumab/Velcade/Dexamethasone for active myeloma therapy. I requested prior liver biopsy results and notes from liver clinic at [facility]. Platelet count in 40,000 range but [...] infiltration that may further impairher liver function. [facility] hepatology discussed liver transplant but sheis likely no longer a candidate for this given active myeloma. We chose least hepatotoxic regimen for treatment of her active myeloma with 50% dose reduction of Velcade. Liver function remained stable since start of therapy 04/10/2020. --Requested prior liver biopsy and [facility] liver clinic records. Dose reduction 20% Kyprolis [...] for coordination of care (as documented) and hijc-sm-dwmw counseling of patient and/or family. Dictated By: Shannon Gallagher APRN DD/ [id number] Signed By: <Electronically signed by KEITH Gallagher> 09/21/22[facility] Work Phone: [phone]) [phone] Progress note Author Fabiola Marinelli [facility] August 20, 2022 5:31pmNote Date/TimeOctober 2021 10:55[facility] [place] [address] Hem/Onc Follow Up Note - OP Signed Patient: Mojgan Pérez MR#: [id number] : 1955 Acct:[id number] Age/Sex: 66 / F Type: REG RCR [...] about 3 to 4 weeks, possibly with lead c developer covering at that time. Patient expressed understanding. [...] follow-up as directed. Planning a trip to [place] on March 06, therefore we will hold [...] in December 2020 to 60.2 inDecember 2020. [place] lambda ratio has also started to decline to 0.21 in October 2021. For now I'm continuing her daratumumab with Revlimid at current dosing, but I contacted Dr. Benavidez at [facility] for CAR-T cell eligibility. If he has [...] and myeloma labs (follow quant immunoglobulins and [place]/Lambda light chain ratio with skeletal survey in 2 weeks so results available for appointment). 08/30/2021: Mojgan is here for 2-week follow-up for completion of her palliative radiation therapywith significant improvement of pain in her right hip and pelvis. We sent her for echocardiogram performed 08/23/[address] [facility] heart and vascular [place] as baseline for possible Kyprolis therapy. This returned with ejection fraction 60% which is normal with grade 1 left ventricular diastolic dysfunction and 1+ tricuspid valve regurgitation and trace to 1+ aortic valve regurgitation.Otherwise unremarkable. I discussed her case with Dr. Benavidez of malignant hematology at [facility]. He advised against Kyprolis therapy given her [...] spike). Slowly improving IgG to near normal. [place]/lambda light chain ratio normal with mildly increased [...] symptoms--improving thrombocytopenia to 79,000 and improved leukopenia. 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 Still [...] her case with Dr. Piter Benavidez at [facility] malignant hematology for optimal regimen. The [...] request prior liver biopsy and records from [facility] liver clinic. The patient and her son (by telephone) expressed understanding and will follow- up as directed in 2 weeks for consent and likely start of therapy. --04/02/2020: Mojgan presents after infusion port placement at [facility] by interventional radiology due to platelet count [...] (for liver dysfunction) 0.7mg/m2 D1,D4,D8, D11, and Tabbvshcguhhy76ch IV weekly--repeat for every 3 week cycles [...] GERD, and fibromyalgia who [facility] mild to moderate thrombocytopenia. She states that she was followed with Dr. Kumari prior to his senior living and was told that she had an [...] The treatments were given with AP/PA vaz udexuxcmt04 MV photons and MLC blocks. 3. Deferred [...] nonalcoholic steatohepatitis with cirrhosis, previously followed by [facility] gastroenterology. Cardiovascular: No Chest Pain, No Edema, [...] Creatinine Clear 124.92, Sodium 138, Potassium 3.7, Ulyuucns130, Carbon Ycdomya71.6, Anion Gap 10.1, BUN 14, Creatinine 0.46, [...] % (Auto) 50.4, Lymph % (Auto) 34.8, Briscoe % (Auto) 12.9, Eos % (Auto) 1.7, Baso % (Auto) 0.2, Neut # (Auto) 1.0 L, Lymph #(Auto) 0.7 L, Briscoe# (Auto) 0.2, Eos # (Auto) 0.0, Baso # (Auto) 0.0, Nucleated RBC % (auto) 0.3 08/15/22 14:45: Corrected WBC 1.3 L, Uncorrected WBC Count 1.3 L, RBC 3.14 L, Hgb 10.7 L, Hct 31.8 L, MCV 101.3 H, MCH 34.1, MCHC 33.7, RDW 17.8 H, Plt Count 43 L, MPV 9.1, Neut % (Auto) 34.9, Lymph % (Auto) 44.9, Briscoe % (Auto) 18.3, Eos % (Auto) 1.7, Baso % (Auto) 0.2, Neut # (Auto) 0.5 L, Lymph #(Auto) 0.6 L, Briscoe# (Auto) 0.2, Eos # (Auto) 0.0, Baso [...] Other Results Results/Comments: Date of Service: 07/18/22 [facility] echo transthoracic: Routine monitoring for cardiotoxic chemotherapy [...] Staging Staging: Stage IIIA Multiple Myeloma ([place] criteria) (1) Multiple myeloma Qualifiers: Multiple myeloma [...] [facility] Her [facility] made her ineligible [...] the patient in hematology tumor board at [facility]. --Infusion port placed 03/22/2020 at [facility] due to low platelets. No complications. --03/12/2020: [...] needed for cytopenias.Evaluation for CAR-T therapy at [facility]. Send myeloma labs and skeletal survey [...] bone marrow biopsy, but this would not change management expert, therefore we will give Pomalyst (now decreasedto [...] immunoglobulins, and kappa/lambda light chains(ok to see PARK MANAGER). This is a moderate complexity visit over 35 minutes for review of symptoms, cytopenias, echo results, and tolerance of Carfilzomib, Cyclophosphamide, and Dexamethasone. 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 I previously reviewed her outpatient records from [facility], including review of notes, laboratories, and [...] She continues surveillance with liver clinic at [facility] and I will continue to follow her every 6 months, sooner if newbleeding issues arise. --04/02/2020: We reviewed informed consent for Daratumumab/Velcade/Dexamethasone for active myeloma therapy. I requested prior liver biopsy results and notes from liver clinic at [facility]. Platelet count in 40,000 range but [...] infiltration that may further impairher liver function. [facility] hepatology discussed liver transplant but sheis likely no longer a candidate for this given active myeloma. We chose least hepatotoxic regimen for treatment of her active myeloma with 50% dose reduction of Velcade. Liver function remained stable since start of therapy 04/10/2020. --Requested prior liver biopsy and [facility] liver clinic records. Dose reduction 20% Kyprolis [...] for coordination of care (as documented) and npyx-rt-vxzp counseling of patient and/or family. Dictated By: Fabiola Marinelli MD DD/ [id number] Signed By: <Electronically signed by MD Fabiola Marinelli> 08/20/22 [address] [facility] Work Phone: 1(331) [phone] Progress note Author Fabiola Marinelli [facility] July 10, 2022 5:15pmNote Date/TimeSeptember 2021 10:07[facility] [place] at [address] [address] Hem/Onc Follow Up Note - OP Signed Patient: Mojgan Pérez MR#: [id number] : 1955 Acct:[id number] Age/Sex: 66 / F Type: REG RCR [...] about 3 to 4 weeks, possibly with lead c developer covering at that time. Patient expressed understanding. [...] follow-up as directed. Planning a trip to [place] on March 06, therefore we will hold [...] December 2020 to 60.2 in October 2021. [place] lambda ratio has also started to decline to 0.21 in October 2021. For now I'm continuing her daratumumab with Revlimid at current dosing, but I contacted Dr. Benavidez at [facility] for CAR-T celleligibility. If he has recommendations [...] and myeloma labs (follow quant immunoglobulins and [place]/Lambda light chain ratio with skeletal survey in 2 weeks so results available for appointment). 08/30/2021: Mojgna is here for 2-week follow-up for completion of her palliative radiation therapywith significant improvement of pain in her right hip and pelvis. We sent her for echocardiogram performed 08/23/[address] [facility] heart and vascular [place] as baseline for possible Kyprolis therapy. This returned with ejection fraction 60% which is normal with grade 1 left ventricular diastolic dysfunction and 1+ tricuspid valve regurgitation and trace to 1+ aortic valve regurgitation.Otherwise unremarkable. I discussed her case with Dr. Benavidez of malignant hematology at [facility]. He advised against Kyprolis therapy given her [...] spike). Slowly improving IgG to near normal. [place]/lambda light chain ratio normal with mildly increased [...] daughter) for cycle 8, week 2 followup gjwvpbbaovi36 mg/kg IV weekly, Dexamethasone 20mg weekly, and [...] symptoms--improving thrombocytopenia to 79,000 and improved leukopenia. 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 Still [...] her case with Dr. Piter Benavidez at [facility] malignant hematology for optimal regimen. The [...] request prior liver biopsy and records from [facility] liver clinic. The patient and her son (by telephone) expressed understanding and will follow- up as directed in 2 weeks for consent and likely start of therapy. --04/02/2020: Mojgan presents after infusion port placement at [facility] by interventional radiology due to platelet count [...] (for liver dysfunction) 0.7mg/m2 D1,D4,D8, D11, and Tujrjgfanubza28td IV weekly--repeat for every 3 week cycles [...] GERD, and fibromyalgia who [facility] to moderate [facility]. She states that she was followed with Dr. Kumari prior to his senior living and was told that she had an [...] The treatments were given with AP/PA vaz wobtrqrmm00 MV photons and MLC blocks. 3. Deferred [...] nonalcoholic steatohepatitis with cirrhosis, previously followed by [facility] gastroenterology. Cardiovascular: No Chest Pain, No Edema, [...] 05/01/20 09:33 DB (Rec: 05/01/20 09:[address] [facility]-NS-03) Distress Screening Distress Score: 0 No [...] Creatinine Clear 108.74, Sodium 139, Potassium 3.7, Afmtqjib843, Carbon Vxegwaw22.4, Anion Gap 11.3, BUN 8 L, Creatinine [...] Creatinine Clear 120.42, Sodium 142, Potassium 3.7, Eiomlkqf414, Carbon Yaaxkig80.0, Anion Gap 14.7, BUN 8 L, Creatinine [...] % (Auto) 13.0, Lymph % (Auto) 61.7, Briscoe % (Auto) 17.6, Eos % (Auto) 7.1, Baso % (Auto) 0.6, Neut # (Auto) 0.3 L, Lymph # (Auto)1.2, [place]iscoe # (Auto) 0.3, Eos # (Auto) 0.1, Baso # (Auto) 0.0, Nucleated RBC % (auto) 0.1, Platelet Estimate Decreased L, Plt Morphology Comment Normal, RBC Morphology Normal 07/04/22 10:20: IgG 463 L, IgA 44 L, IgM 17 L, Free [place] LC, Quant 10.6, Free Lambda LC, Quant 125.7 H, Free [place]/Lambda Ratio 0.08 L - Impressions No new imaging for review, baseline Echo for carfilzomib ordered. Assessment and Plan - TNM Staging Staging: Stage IIIA Multiple Myeloma ([place] criteria) (1) Multiple myeloma Qualifiers: Multiple myeloma [...] [facility] made her ineligible [...] the patient in hematology tumor board at [facility]. --Infusion port placed 03/22/2020 at [facility] due to low platelets. No complications. --03/12/2020: [...] needed for cytopenias.Evaluation for CAR-T therapy at [facility]. Send myeloma labs and skeletal survey [...] bone marrow biopsy, but this would not change management expert, therefore we will give Pomalyst (now decreasedto [...] I previously reviewed her outpatient records from [facility], including review of notes, laboratories, [...] [facility] [facility] and I will continue to follow her every 6 months, sooner if newbleeding issues arise. --04/02/2020: We reviewed informed consent for Daratumumab/Velcade/Dexamethasone for active myeloma therapy. I requested prior liver biopsy results and notes from liver clinic at [facility]. Platelet count in 40,000 range but [...] infiltration that may further impairher liver function. [facility] hepatology discussed liver transplant but sheis likely no longer a candidate for this given active myeloma. We chose least hepatotoxic regimen for treatment of her active myeloma with 50% dose reduction of Velcade. Liver function remained stable since start of therapy 04/10/2020. --Requested prior liver biopsy and [facility] liver clinic records. Dose reduction 20% Kyprolis [...] Kyprolis/Cytoxan pending Echo results. (6) History of 2018 novel coronavirus disease [...] for coordination of care (as documented) and ydwy-oz-pqow counseling of patient and/or family. Dictated By: Fabiola Marinelli MD DD/ [id number] Signed By: <Electronically signed by MD Fabiola Marinelli> 07/10/22 0922 [facility] Work Phone: 1(279) 888-159107-06-2022 Progress note Author Fabiola Marinelli [facility] May 07, 2022 3:43pmNote Date/TimeJuly 2021 9:43[facility] [place] [id number] Hem/Onc Follow Up Note - OP Signed Patient: Mojgan Pérez MR#: [id number] : 1955 Acct:[id number] Age/Sex: 66 / F Type: REG RCR [...] about 3 to 4 weeks, possibly with lead c developer covering at that time. Patient expressed understanding. [...] follow-up as directed. Planning a trip to [place] on March 06, therefore we will hold [...] December 2020 to 60.2 in October 2021. [place] lambda ratio has also started to decline to 0.21 in October 2021. For now I'm continuing her daratumumab with Revlimid at current dosing, but I contacted Dr. Benavidez at [facility] for CAR-T celleligibility. If he has recommendations [...] and myeloma labs (follow quant immunoglobulins and [place]/Lambda light chain ratio with skeletal survey in 2 weeks so results available for appointment). 08/30/2021: Mojgan is here for 2-week follow-up for completion of her palliative radiation therapywith significant improvement of pain in her right hip and pelvis. We sent her for echocardiogram performed 08/23/[address] [facility] heart and vascular [place] as baseline for possible Kyprolis therapy. This returned with ejection fraction 60% which is normal with grade 1 left ventricular diastolic dysfunction and 1+ tricuspid valve regurgitation and trace to 1+ aortic valve regurgitation.Otherwise unremarkable. I discussed her case with Dr. Benavidez of malignant hematology at [facility]. He advised against Kyprolis therapy given her [...] spike). Slowly improving IgG to near normal. [place]/lambda light chain ratio normal with mildly increased [...] daughter) for cycle 8, week 2 followup [id number] mg/kg IV weekly, Dexamethasone 20mg weekly, and [...] symptoms--improving thrombocytopenia to 79,000 and improved leukopenia. 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 Still [...] her case with Dr. Piter Benavidez at [facility] malignant hematology for optimal regimen. The [...] request prior liver biopsy and records from [facility] liver clinic. The patient and her son (by telephone) expressed understanding and will follow- up as directed in 2 weeks for consent and likely start of therapy. --04/02/2020: Mojgan presents after infusion port placement at [facility] by interventional radiology due to platelet count [...] (for liver dysfunction) 0.7mg/m2 D1,D4,D8, D11, and Qydcejxalqrvf54lh IV weekly--repeat for every 3 week cycles [...] GERD, and fibromyalgia who [facility] [place] [facility] mild to moderate [facility]ocyt[facility]. She states that she was followed with Dr. Kumari prior to his senior living and was told that she had an [...] The treatments were given with AP/PA vaz [id number] MV photons and MLC blocks. 3. Deferred [...] nonalcoholic steatohepatitis with cirrhosis, previously followed by [facility] gastroenterology. Cardiovascular: No Chest Pain, No Edema, [...] Creatinine Clear 126.14, Sodium 141, Potassium 3.8, Oeaeiwfr550, Carbon Stxvfmr76.5, BUN 9, Creatinine 0.45, Est GFR ( [...] % (Auto) 42.6, Lymph % (Auto) 39.1, Briscoe % (Auto) 13.5, Eos % (Auto) 4.5, Baso % (Auto) 0.3, Neut # (Auto) 1.2 L, Lymph # (Auto) 1.1, Briscoe # (Auto) 0.4, Eos # (Auto) 0.1, Baso # (Auto) 0.0, Nucleated RBC % (auto) 0.2, Platelet Estimate Decreased L, Plt Morphology Comment Normal, RBC Morphology Normal 04/30/22 12:20: Free [place] LC, Quant 11.8, Free Lambda LC, Quant 109.3 H, Free [place]/Lambda Ratio 0.11 L 04/30/22 12:20: PHA Creatinine Clear 126.14, Sodium 140, Potassium 3.8, Bhpwskgv011, Carbon Kqtbvam21.1, BUN 10, Creatinine 0.45, Est GFR ( [...] % (Auto) 41.0, Lymph % (Auto) 46.3, Briscoe % (Auto) 6.1, Eos % (Auto) 6.2, Baso % (Auto) 0.4, Neut # (Auto) 0.8 L, Lymph # (Auto) 0.9 L, Briscoe # (Auto)0.1, Eos # (Auto) 0.1, Baso [...] Staging Staging: Stage IIIA Multiple Myeloma ([place] criteria) (1) Multiple myeloma Qualifiers: Multiple myeloma [...] [facility] Her persistent [facility]ocytopenia made her ineligible [...] the patient in hematology tumor board at [facility]. --Infusion port placed 03/22/2020 at [facility] due to low platelets. No complications. --03/12/2020: [...] needed for cytopenias.Evaluation for CAR-T therapy at [facility]. Send myeloma labs and skeletal survey [...] I previously reviewed her outpatient records from [facility], including review of notes, laboratories, [...] She continues surveillance with liver clinic at [facility] and I will continue to follow her every 6 months, sooner if newbleeding issues arise. --04/02/2020: We reviewed informed consent for Daratumumab/Velcade/Dexamethasone for active myeloma therapy. I requested prior liver biopsy results and notes from liver clinic at [facility]. Platelet count in 40,000 range but [...] infiltration that may further impairher liver function. [facility] hepatology discussed liver transplant but sheis likely no longer a candidate for this given active myeloma. We chose least hepatotoxic regimen for treatment of her active myeloma with 50% dose reduction of Velcade. Liver function remained stable since start of therapy 04/10/2020. --Requested prior liver biopsy and [facility] liver clinic records. (5) Encounter for antineoplastic [...] for coordination of care (as documented) and rffp-bs-emdp counseling of patient and/or family. Dictated By: Fabiola Marinelli MD DD/ [id number] Signed By: <Electronically signed by MD Fabiola Marinelli> 05/07/22 1543 [facility] Work Phone: 1([phone]) 134-546406-08-2022 Progress note Author Fabiola Marinelli [facility] April 09, 2022 4:53pmNote Date/TimeJun2021 11:31[facility] [place] [address] Hem/Onc Follow Up Note - OP Signed Patient: Mojgan Péerz MR#: [id number] : 1955 Acct:[id number] Age/Sex: 66 / F Type: REG RCR [...] about 3 to 4 weeks, possibly with lead c developer covering at that time. Patient expressed understanding. [...] follow-up as directed. Planning a trip to [place] on March 06, therefore we will hold [...] December 2020 to 60.2 in October 2021. [place] lambda ratio has also started to decline to 0.21 in October 2021. For now I'm continuing her daratumumab with Revlimid at current dosing, but I contacted Dr. Benavidez at [facility] for CAR-T celleligibility. If he has recommendations to change her therapy, I will let her know. Otherwise I will have her follow-up with me in 1 month (she will have repeat myeloma labs 1 week prior to visit). 09/20/2021: After telephone consultation with Dr. Bneavidez at , we resumed repeat loading doses [...] CMP,and myeloma labs (follow quant immunoglobulins and [place]/Lambda light chain ratio with skeletal survey in2 weeks so results available for appointment). 08/30/2021: Mojgan is here for 2-week follow-up for completion of her palliative radiation therapywith significant improvement of pain in her right hip and pelvis. We sent her for echocardiogram performed 08/23/[address] [facility] heart and vascular [place] as baseline for possible Kyprolis therapy. This returned with ejection fraction 60% which is normal with grade 1 left ventricular diastolic dysfunction and 1+ tricuspid valve regurgitation and trace to 1+ aortic valve regurgitation.Otherwise unremarkable. I discussed her case with Dr. Benavidez of malignant hematology at [facility]. He advised against Kyprolis therapy given her [...] spike). Slowly improving IgG to near normal. [place]/lambda light chain ratio normal with mildly increased [...] symptoms--improving thrombocytopenia to 79,000 and improved leukopenia. 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 Still [...] her case with Dr. Piter Benavidez at [facility] malignant hematology for optimal regimen. The [...] request prior liver biopsy and records from [facility] liver clinic. The patient and her son (by telephone) expressed understanding and will follow- up as directed in 2 weeks for consent and likely start of therapy. --04/02/2020: Mojgan presents after infusion port placement at [facility] by interventional radiology due to platelet count [...] GERD, and fibromyalgia [facility]. She states that she was followed with Dr. Kumari prior to his senior living and was told that she had an [...] The treatments were given with AP/PA vaz ykmygbjhw21 MV photons and MLC blocks. 3. Deferred [...] nonalcoholic steatohepatitis with cirrhosis, previously followed by [facility] gastroenterology. Cardiovascular: No Chest Pain, No Edema, [...] radiation. Plan repeat F-18 PET/CT in late April/earlyJuly. HEENT: No Blurred Vision, No Discharge, No [...] Social History Comments: [facility] Home Medications & Allergies Allergies [...] Creatinine Clear 135.14, Sodium 138, Potassium 3.8, Gjnocpwd789, Carbon Wiqkmpb10.7, BUN 11, Creatinine 0.42 L, Est GFR [...] % (Auto) 61.8, Lymph % (Auto) 29.3, Briscoe % (Auto) 6.0, Eos % (Auto) 2.6, Baso % (Auto) 0.3, Neut # (Auto) 1.8, Lymph # (Auto) 0.9 L, Briscoe # (Auto) 0.2, Eos # (Auto) 0.1, Baso # (Auto) 0.0, Nucleated RBC % (auto) 0.1, Platelet Estimate Decreased L, Plt Morphology Comment Normal, RBC Morphology N/A, Anisocytosis Slight - Impressions F-18 Axumin PET ordered prior to next visit in late April/early May. Assessment and Plan - TNM Staging Staging: Stage IIIA Multiple Myeloma ([place] criteria) (1) Multiple myeloma Qualifiers: Multiple myeloma [...] [facility] Her persistent thrombocytopenia made her ineligible [...] the patient in hematology tumor board at [facility]. --Infusion port placed 03/22/2020 at [facility] due to low platelets. No complications. --03/12/2020: [...] prophylaxis. --We requested prior liver biopsy from [facility] for review of the extentof her [...] needed for cytopenias.Evaluation for CAR-T therapy at [facility]. Send myeloma labs and skeletal survey in 2 weeks, f/u with me in 4 weeks. She agrees with this plan. --12/18/2020: Mojgan is now on every 2-week dosing of daratumumab with Revlimid 5 mg daily 2 weeks on 2 weeks off. No new symptoms but Dr. Benavidez at [facility] was updated to mild worsening leukopenia and [...] I previously reviewed her outpatient records from [facility], including review of notes, laboratories, [...] She continues surveillance with liver clinic at [facility] and I will continue to follow her every 6 months, sooner if newbleeding issues arise. --04/02/2020: We reviewed informed consent for Daratumumab/Velcade/Dexamethasone for active myeloma therapy. I requested prior liver biopsy results and notes from liver clinic at [facility]. Platelet count in 40,000 range but [...] infiltration that may further impairher liver function. [facility] hepatology discussed liver transplant but sheis likely no longer a candidate for this given active myeloma. We chose least hepatotoxic regimen for treatment of her active myeloma with 50% dose reduction of Velcade. Liver function remained stable since start of therapy 04/10/2020. --Requested prior liver biopsy and [facility] liver clinic records. (5) Encounter for antineoplastic [...] booster, she may be eligible for antivirals Fernanda (tixagevimab IM and cilgavimab IM) for passive [...] for coordination of care (as documented) and qkez-ui-ddgv counseling of patient and/or family. Dictated By: Fabiola Marinelli MD DD/ [id number] Signed By: <Electronically signed by MD Fabiola Marinelli> 04/09/22 [address] [facility] Work Phone: 1([phone]) [phone] Progress note Author Fabiola Marinelli [facility] March 19, 2022 1:28pmNote Date/TimeMay 2021 8:59[facility] [place] [address] Hem/Onc Follow Up Note - OP Signed Patient: Mojgan Pérez MR#: [id number] : 1955 Acct:[id number] Age/Sex: 66 / F Type: REG RCR [...] about 3 to 4 weeks, possibly with lead c developer covering at that time. Patient expressed understanding. [...] follow-up as directed. Planning a trip to [place] on March 06, therefore we will hold [...] December 2020 to 60.2 in October 2021. [place] lambda ratio has also started to decline to 0.21 in October 2021. For now I'm continuing her daratumumab with Revlimid at current dosing, but I contacted Dr. Benavidez at [facility] for CAR-T celleligibility. If he has recommendations [...] and myeloma labs (follow quant immunoglobulins and [place]/Lambda light chain ratio with skeletal survey in 2 weeks so results available for appointment). 08/30/2021: Mojgan is here for 2-week follow-up for completion of her palliative radiation therapywith significant improvement of pain in her right hip and pelvis. We sent her for echocardiogram performed 08/23/[address] [facility] heart and vascular [place] as baseline for possible Kyprolis therapy. This returned with ejection fraction 60% which is normal with grade 1 left ventricular diastolic dysfunction and 1+ tricuspid valve regurgitation and trace to 1+ aortic valve regurgitation.Otherwise unremarkable. I discussed her case with Dr. Benavidez of malignant hematology at [facility]. He advised against Kyprolis therapy given her [...] spike). Slowly improving IgG to near normal. [place]/lambda light chain ratio normal with mildly increased [...] daughter) for cycle 8, week 2 followup jfyzmpeqzzm29 mg/kg IV weekly, Dexamethasone 20mg weekly, and [...] symptoms--improving thrombocytopenia to 79,000 and improved leukopenia. 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 Still [...] her case with Dr. Piter Benavidez at [facility] malignant hematology for optimal regimen. The [...] request prior liver biopsy and records from [facility] liver clinic. The patient and her son (by telephone) expressed understanding and will follow- up as directed in 2 weeks for consent and likely start of therapy. --04/02/2020: Mojgan presents after infusion port placement at [facility] by interventional radiology due to platelet count [...] (for liver dysfunction) 0.7mg/m2 D1,D4,D8, D11, and Wmnurzjxhwimt60wq IV weekly--repeat for every 3 week cycles [...] GERD, and fibromyalgia [facility] to moderate [facility]. She states that she was followed with Dr. Kumari prior to his senior living and was told that she had an [...] The treatments were given with AP/PA vaz ljsaaqypu52 MV photons and MLC blocks. 3. Deferred [...] nonalcoholic steatohepatitis with cirrhosis, previously followed by [facility] gastroenterology. Cardiovascular: No Chest Pain, No Edema, [...] Social History Comments: [facility] Home Medications & Allergies Allergies [...] Creatinine Clear 139.29, Sodium 139, Potassium 3.8, Mkymacoy470, Carbon Prxtqtx92.5, BUN 8 L, Creatinine 0.42 L, Est [...] % (Auto) 44.2, Lymph % (Auto) 38.2, Briscoe % (Auto) 12.9, Eos % (Auto) 4.5, Baso % (Auto) 0.2, Neut # (Auto) 1.3 L, Lymph # (Auto) 1.1, [place]iscoe # (Auto) 0.4, Eos # (Auto) 0.1, Baso # (Auto) 0.0, Nucleated RBC % (auto) 0.1, Platelet Estimate Decreased L, Plt Morphology Comment Normal, RBC Morphology Normal 03/05/2022: 03/05/2022: IgG 444, IgA 34, IgM 26, - Impressions No imaging for review Assessment and Plan - TNM Staging Staging: Stage IIIA Multiple Myeloma ([place] criteria) (1) Multiple myeloma Qualifiers: Multiple myeloma [...] [facility] Her persistent thrombocytopenia made her ineligible [...] the patient in hematology tumor board at [facility]. --Infusion port placed 03/22/2020 at [facility] due to low platelets. No complications. --03/12/2020: [...] prophylaxis. --We requested prior liver biopsy from [facility] for review of the extentof her [...] needed for cytopenias.Evaluation for CAR-T therapy at [facility]. Send myeloma labs and skeletal survey in 2 weeks, f/u with me in 4 weeks. She agrees with this plan. --12/18/2020: Mojgan is now on every 2-week dosing of daratumumab with Revlimid 5 mg daily 2 weeks on 2 weeks off. No new symptoms but Dr. Benavidez at [facility] was updated to mild worsening leukopenia and [...] initial cycle was only given 5/4-03/13/2022. Now thatradha has complete resolution of symptoms [...] I previously reviewed her outpatient records from [facility] [place], including review of notes, laboratories, and [...] She continues surveillance with liver clinic at [facility] and I will continue to follow her every 6 months, sooner if newbleeding issues arise. --04/02/2020: We reviewed informed consent for Daratumumab/Velcade/Dexamethasone for active myeloma therapy. I requested prior liver biopsy results and notes from liver clinic at [facility]. Platelet count in 40,000 range but [...] infiltration that may further impairher liver function. [facility] hepatology discussed liver transplant but sheis likely no longer a candidate for this given active myeloma. We chose least hepatotoxic regimen for treatment of her active myeloma with 50% dose reduction of Velcade. Liver function remained stable since start of therapy 04/10/2020. --Requested prior liver biopsy and [facility] liver clinic records. (5) Encounter for antineoplastic [...] for coordination of care (as documented) and lgrv-wo-ydaw counseling of patient and/or family. Dictated By: Fabiola Marinelli MD DD/ [id number] Signed By: <Electronically signed by MD Fabiola Marinelli> 03/19/22 [address] [facility] Work Phone: 1(886) 270-147405-04-2022 Progress note Author Meme George [facility] March 05, 2022 1:08pmNote Date/TimeMay 2021 11:53[facility] [place] [address] Rad Onc Follow Up Note - OP Signed Patient: Mojgan Pérez MR#: [id number] : 1955 Acct:[id number] Age/Sex: 66 / F Type: REG RCR [...] <Electronically signed by Meme George MD> 03/05/22 [address] [facility] Work Phone: 1(884) 895-189704-20-2022 Progress note Author Fabiola Marinelli [facility] February 19, 2022 9:22amNote Date/TimeApril 2021 8:[facility] [address] [address] Hem/Onc Follow Up Note - OP Signed Patient: Mojgan Pérez MR#: [id number] : 1955 Acct:[id number] Age/Sex: 66 / F Type: REG RCR [...] follow-up as directed. Planning a trip to [place] on March 06, therefore we will hold [...] December 2020 to 60.2 in October 2021. [place] lambda ratio has also started to decline to 0.21 in October 2021. For now I'm continuing her daratumumab with Revlimid at current dosing, but I contacted Dr. Benavidez at [facility] for CAR-T celleligibility. If he has recommendations [...] and myeloma labs (follow quant immunoglobulins and [place]/Lambda light chain ratio with skeletal survey in 2 weeks so results available for appointment). 08/30/2021: Mojgan is here for 2-week follow-up for completion of her palliative radiation therapywith significant improvement of pain in her right hip and pelvis. We sent her for echocardiogram performed 08/23/[address] [facility] heart and vascular [place] as baseline for possible Kyprolis therapy. This returned with ejection fraction 60% which is normal with grade 1 left ventricular diastolic dysfunction and 1+ tricuspid valve regurgitation and trace to 1+ aortic valve regurgitation.Otherwise unremarkable. I discussed her case with Dr. Benavidez of malignant hematology at [facility]. He advised against Kyprolis therapy given her [...] spike). Slowly improving IgG to near normal. [place]/lambda light chain ratio normal with mildly increased [...] daughter) for cycle 8, week 2 followup awzrekbxceh87 mg/kg IV weekly, Dexamethasone 20mg weekly, and [...] symptoms--improving thrombocytopenia to 79,000 and improved leukopenia. 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 Still [...] her case with Dr. Piter Benavidez at [facility] malignant hematology for optimal regimen. The [...] request prior liver biopsy and records from [facility] liver clinic. The patient and her son (by telephone) expressed understanding and will follow- up as directed in 2 weeks for consent and likely start of therapy. --04/02/2020: Mojgan presents after infusion port placement at [facility] by interventional radiology due to platelet count [...] (for liver dysfunction) 0.7mg/m2 D1,D4,D8, D11, and Qthuilqhoikyg56qi IV weekly--repeat for every 3 week cycles [...] GERD, and fibromyalgia who [facility] to moderate [facility]. She states that she was followed with Dr. Kumari prior to his senior living and was told that she had an [...] The treatments were given with AP/PA vaz gmnymonko50 MV photons and MLC blocks. 3. Deferred [...] nonalcoholic steatohepatitis with cirrhosis, previously followed by [facility] gastroenterology. Cardiovascular: No Chest Pain, No Edema, [...] 05/01/20 09:33 DB (Rec: 05/01/20 09:[address] [facility] [facility]) Distress Screening Distress Score: 0 No [...] % (Auto) 33.2, Lymph % (Auto) 49.0, Briscoe % (Auto) 11.0, Eos % (Auto) 6.4, Baso % (Auto) 0.4, Neut # (Auto) 0.8 L, Lymph # (Auto) 1.1, Briscoe # (Auto) 0.3, Eos # (Auto) 0.2, Baso # (Auto) 0.0, Nucleated RBC % (auto) 0.1, Platelet Estima te Decreased L, Plt Morphology Comment Normal, RBC Morphology Normal 02/18/22 09:55: PHA Creatinine Clear 122.85, Sodium 139, Potassium 3.7, Oifqqhtb571, Carbon Rdltvoe54.7, BUN 9, Creatinine 0.47, Est GFR ( [...] trachea is midline. There is a right-sided Aborzj-z-Gnew which is unchanged.Atherosclerotic changes are noted in [...] Staging Staging: Stage IIIA Multiple Myeloma ([place] criteria) (1) Multiple myeloma Qualifiers: Multiple myeloma [...] [facility] Her persistent thrombocytopenia made her ineligible [...] the patient in hematology tumor board at [facility]. --Infusion port placed 03/22/2020 at [facility] due to low platelets. No complications. --03/12/2020: [...] prophylaxis. --We requested prior liver biopsy from [facility] for review of the extentof her [...] needed for cytopenias.Evaluation for CAR-T therapy at [facility]. Send myeloma labs and skeletal survey in 2 weeks, f/u with me in 4 weeks. She agrees with this plan. --12/18/2020: Mojgan is now on every 2-week dosing of daratumumab with Revlimid 5 mg daily 2 weeks on 2 weeks off. No new symptoms but Dr. Benavidez at [facility] was updated to mild worsening leukopenia and [...] I previously reviewed her outpatient records from [facility] [place], including review of notes, laboratories, and [...] She continues surveillance with liver clinic at [facility] and I will continue to follow her every 6 months, sooner if newbleeding issues arise. --04/02/2020: We reviewed informed consent for Daratumumab/Velcade/Dexamethasone for active myeloma therapy. I requested prior liver biopsy results and notes from liver clinic at [facility]. Platelet count in 40,000 range but [...] infiltration that may further impairher liver function. [facility] hepatology discussed liver transplant but sheis likely no longer a candidate for this given active myeloma. We chose least hepatotoxic regimen for treatment of her active myeloma with 50% dose reduction of Velcade. Liver function remained stable since start of therapy 04/10/2020. --Requested prior liver biopsy and [facility] liver clinic records. (5) Encounter for antineoplastic [...] for coordination of care (as documented) and ttyb-jz-ugrh counseling of patient and/or family. Dictated By: Fabiola Marinelli MD DD/ 8 Signed By: <Electronically signed by MD Fabiola Marinelli> 02/19/22921 [facility] Work Phone: 1([phone]) 319-591403-23-2022 Progress note Author Fabiola Marinelli [facility] January 22, 2022 3:20pmNote Date/TimeMarch 2021 8:45[facility] [place] [address] Hem/Onc Follow Up Note - OP Signed Patient: Mojgan Pérez MR#: [id number] : 1955 Acct:[id number] Age/Sex: 66 / F Type: REG RCR [...] in December 2020 to 60.2 inDecember 2020. [place] lambda ratio has also started to decline to 0.21 in October 2021. For now I'm continuing her daratumumab with Revlimid at current dosing, but I contacted Dr. Benavidez at [facility] for CAR-T cell eligibility. If he has [...] and myeloma labs (follow quant immunoglobulins and [place]/Lambda light chain ratio with skeletal survey in 2 weeks so results available for appointment). 08/30/2021: Mojgan is here for 2-week follow-up for completion of her palliative radiation therapywith significant improvement of pain in her right hip and pelvis. We sent her for echocardiogram performed 08/23/[address] [facility] heart and vascular [place] as baseline for possible Kyprolis therapy. This returned with ejection fraction 60% which is normal with grade 1 left ventricular diastolic dysfunction and 1+ tricuspid valve regurgitation and trace to 1+ aortic valve regurgitation.Otherwise unremarkable. I discussed her case with Dr. Benavidez of malignant hematology at [facility]. He advised against Kyprolis therapy given her [...] spike). Slowly improving IgG to near normal. [place]/lambda light chain ratio normal with mildly increased [...] daughter) for cycle 8, week 2 followup pcfjxlyxvrq04 mg/kg IV weekly, Dexamethasone 20mg weekly, and Velcade 0.7 mg/m? now sq once weekly for every 3-week cycle (21 days). She notes neuropathy symptoms are stable. Tolerating therapy well without fatigue. No bleeding and thrombocytopenia stable in 60-70,0000 range. On 12/1 she will be due for maintenance therapy [...] symptoms--improving thrombocytopenia to 79,000 and improved leukopenia. 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 Still [...] her case with Dr. Piter Benavidez at [facility] malignant hematology for optimal regimen. The [...] request prior liver biopsy and records from [facility] liver clinic. The patient and her son (by telephone) expressed understanding and will follow- up as directed in 2 weeks for consent and likely start of therapy. --04/02/2020: Mojgan presents after infusion port placement at [facility] by interventional radiology due to platelet count [...] (for liver dysfunction) 0.7mg/m2 D1,D4,D8, D11, and Eezxfacdveqjv47zi IV weekly--repeat for every 3 week cycles [...] GERD, and fibromyalgia [facility]. She states that she was followed with Dr. Kumari prior to his senior living and was told that she had an [...] The treatments were given with AP/PA vaz ruikqnics88 MV photons and MLC blocks. 3. Deferred [...] nonalcoholic steatohepatitis with cirrhosis, previously followed by [facility] gastroenterology. Cardiovascular: No Chest Pain, No Edema, [...] Social History Comments: Lives with son a grandaumihaela Home Medications & Allergies Allergies erythromycin base [...] Creatinine Clear 115.74, Sodium 139, Potassium 3.7, Osnbeurm708, Carbon Pdevkjk27.4, BUN 7 L, Creatinine 0.50, Est GFR [...] % (Auto) 37.2, Lymph % (Auto) 45.9, Briscoe % (Auto) 12.8, Eos % (Auto) 3.9, Baso % (Auto) 0.2, Neut # (Auto) 1.1 L, Lymph # (Auto) 1.4, Briscoe # (Auto) 0.4, Eos # (Auto) 0.1, Baso # (Auto) 0.0, Nucleated RBC % (auto) 0.0 - Impressions No new imaging for review. Assessment and Plan - TNM Staging Staging: Stage IIIA Multiple Myeloma ([place] criteria) (1) Multiple myeloma Qualifiers: Multiple myeloma [...] [facility] Her persistent thrombocytopenia made her ineligible [...] the patient in hematology tumor board at [facility]. --Infusion port placed 03/22/2020 at [facility] due to low platelets. No complications. --03/12/2020: [...] prophylaxis. --We requested prior liver biopsy from [facility] for review of the extentof her [...] needed for cytopenias.Evaluation for CAR-T therapy at [facility]. Send myeloma labs and skeletal survey in 2 weeks, f/u with me in 4 weeks. She agrees with this plan. --12/18/2020: Mojgan is now on every 2-week dosing of daratumumab with Revlimid 5 mg daily 2 weeks on 2 weeks off. No new symptoms but Dr. Benavidez at [facility] was updated to mild worsening leukopenia and [...] I previously reviewed her outpatient records from [facility], including review of notes, laboratories, [...] She continues surveillance with liver clinic at [facility] and I will continue to follow her every 6 months, sooner if newbleeding issues arise. --04/02/2020: We reviewed informed consent for Daratumumab/Velcade/Dexamethasone for active myeloma therapy. I requested prior liver biopsy results and notes from liver clinic at [facility]. Platelet count in 40,000 range but [...] infiltration that may further impairher liver function. [facility] hepatology discussed liver transplant but sheis likely no longer a candidate for this given active myeloma. We chose least hepatotoxic regimen for treatment of her active myeloma with 50% dose reduction of Velcade. Liver function remained stable since start of therapy 04/10/2020. --Requested prior liver biopsy and [facility] liver clinic records. (5) Encounter for antineoplastic [...] for coordination of care (as documented) and sisq-cs-xhlm counseling of patient and/or family. Dictated By: Fabiola Marinelli MD DD/ [id number] Signed By: <Electronically signed by MD Fabiola Marinelli> 01/22/22 1520 [facility] Work Phone: [phone]) 190-338802-16-2022 Progress note Author Fabiola Marinelli [facility] December 18, 2021 3:22pmNote Date/TimeFebruary 2021 8:49[facility] [place] [address] Hem/Onc Follow Up Note - OP Signed Patient: Mojgan Pérez MR#: [id number] : 1955 Acct:[id number] Age/Sex: 66 / F Type: REG RCR [...] December 2020 to 60.2 in October 2021. [place] lambda ratio has also started to decline to 0.21 in October 2021. For now I'm continuing her daratumumab with Revlimid at current dosing, but I contacted Dr. Benavidez at [facility] for CAR-T celleligibility. If he has recommendations [...] and myeloma labs (follow quant immunoglobulins and [place]/Lambda light chain ratio with skeletal survey in 2 weeks so results available for appointment). 08/30/2021: Mojgan is here for 2-week follow-up for completion of her palliative radiation therapywith significant improvement of pain in her right hip and pelvis. We sent her for echocardiogram performed 08/23/[address] [facility] heart and vascular [place] as baseline for possible Kyprolis therapy. This returned with ejection fraction 60% which is normal with grade 1 left ventricular diastolic dysfunction and 1+ tricuspid valve regurgitation and trace to 1+ aortic valve regurgitation.Otherwise unremarkable. I discussed her case with Dr. Benavidez of malignant hematology at [facility]. He advised against Kyprolis therapy given her [...] spike). Slowly improving IgG to near normal. [place]/lambda light chain ratio normal with mildly increased [...] daughter) for cycle 8, week 2 followup etbsdhxjehc21 mg/kg IV weekly, Dexamethasone 20mg weekly, and [...] symptoms--improving thrombocytopenia to 79,000 and improved leukopenia. 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 Still [...] her case with Dr. Piter Benavidez at [facility] malignant hematology for optimal regimen. The [...] request prior liver biopsy and records from [facility] liver clinic. The patient and her son (by telephone) expressed understanding and will follow- up as directed in 2 weeks for consent and likely start of therapy. --04/02/2020: Mojgan presents after infusion port placement at [facility] by interventional radiology due to platelet count [...] (for liver dysfunction) 0.7mg/m2 D1,D4,D8, D11, and Vahimjbomnxqm96fx IV weekly--repeat for every 3 week cycles [...] GERD, and fibromyalgia who [facility] to moderate [facility]ocyt[facility]. She states that she was followed with Dr. Kumari prior to his senior living and was told that she had an [...] The treatments were given with AP/PA vaz bgfydvsrv20 MV photons and MLC blocks. 3. Deferred [...] nonalcoholic steatohepatitis with cirrhosis, previously followed by [facility] gastroenterology. Cardiovascular: No Chest Pain, No Edema, [...] Confirmed 12/18/21] azithromycin 250 mg tablet (Zithromax Z-Emilinao) 250 mg PO DAILY 11/26/20 [History Confirmed [...] 4 - Distress Screening Distress Screen Results: LES Pantoja Screening Start: 02/07/20 10:17 Freq: Status: Complete [...] Creatinine Clear 138.05, Sodium 139, Potassium 3.6, Zhrcshog364, Carbon Wmpoxzo52.9, BUN 8 L, Creatinine 0.42 L, Est [...] % (Auto) 44.3, Lymph % (Auto) 45.3, Briscoe % (Auto) 6.6, Eos % (Auto) 3.6, Baso % (Auto) 0.2, Neut # (Auto) 1.3 L, Lymph # (Auto) 1.3, Briscoe # (Auto) 0.2, Eos # (Auto) 0.1, [...] or abdominal findings. Patient has a right-sided Tgehhv-w-Qscextqclfie. XR/XR bone survey IMPRESSION: NO OSTEOLYTIC LESIONS SUGGESTIVE OF MULTIPLE MYELOMA. Impression dictated by: Tracey Bah M.D.10/04/2021 2:43 PM Date of Service: 11/07/21 [...] ABNORMALITY. Impression dictated by: Carroll Sparrow Jr., D.OErna11/07/2021 2:46 PM Assessment and Plan - TNM Staging Staging: Stage IIIA Multiple Myeloma ([place] criteria) (1) Multiple myeloma Qualifiers: Multiple myeloma [...] [facility] Her persistent thrombocytopenia made her ineligible [...] the patient in hematology tumor board at [facility]. --Infusion port placed 03/22/2020 at [facility] due to low platelets. No complications. --03/12/2020: [...] prophylaxis. --We requested prior liver biopsy from [facility] for review of the extentof her [...] needed for cytopenias.Evaluation for CAR-T therapy at [facility]. Send myeloma labs and skeletal survey in 2 weeks, f/u with me in 4 weeks. She agrees with this plan. --12/18/2020: Mojgan is now on every 2-week dosing of daratumumab with Revlimid 5 mg daily 2 weeks on 2 weeks off. No new symptoms but Dr. Ann at [facility] was updated to mild worsening leukopenia and [...] I previously reviewed her outpatient records from [facility] [place], including review of notes, laboratories, and [...] She continues surveillance with liver clinic at [facility] and I will continue to follow her every 6 months, sooner if newbleeding issues arise. --04/02/2020: We reviewed informed consent for Daratumumab/Velcade/Dexamethasone for active myeloma therapy. I requested prior liver biopsy results and notes from liver clinic at [facility]. Platelet count in 40,000 range but [...] infiltration that may further impairher liver function. [facility] hepatology discussed liver transplant but sheis likely no longer a candidate for this given active myeloma. We chose least hepatotoxic regimen for treatment of her active myeloma with 50% dose reduction of Velcade. Liver function remained stable since start of therapy 04/10/2020. --Requested prior liver biopsy and [facility] liver clinic records. (5) Encounter for antineoplastic [...] for coordination of care (as documented) and gwmm-on-ehso counseling of patient and/or family. Dictated By: Fabiola Marinelli MD DD/ [id number] Signed By: <Electronically signed by MD Fabiola Marinelli> 12/18/21 1522 [facility] Work Phone: 1(903) 974-667111-20-2021 Progress note Author Fabiola Marinelli [facility] September 21, 2021 11:10amNote Date/TimeNov2020 7:15[facility] [place] [address] Hem/Onc Follow Up Note - OP Signed Patient: Mojgan Pérez MR#: [id number] : 1955 Acct:[id number] Age/Sex: 66 / F Type: REG RCR [...] and myeloma labs (follow quant immunoglobulins and [place]/Lambda light chain ratio with skeletal survey in 2 weeks so results available for appointment). 08/30/2021: Mojgan is here for 2-week follow-up for completion of her palliative radiation therapywith significant improvement of pain in her right hip and pelvis. We sent her for echocardiogram performed 08/23/[address] [facility] heart and vascular [place] as baseline for possible Kyprolis therapy. This returned with ejection fraction 60% which is normal with grade 1 left ventricular diastolic dysfunction and 1+ tricuspid valve regurgitation and trace to 1+ aortic valve regurgitation.Otherwise unremarkable. I discussed her case with Dr. Benavidez of malignant hematology at [facility]. He advised against Kyprolis therapy given her [...] spike). Slowly improving IgG to near normal. [place]/lambda light chain ratio normal with mildly increased [...] daughter) for cycle 8, week 2 followup pwnuessgsua15 mg/kg IV weekly, Dexamethasone 20mg weekly, and [...] symptoms--improving thrombocytopenia to 79,000 and improved leukopenia. 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 Still [...] her case with Dr. Piter Benavidez at [facility] malignant hematology for optimal regimen. The [...] request prior liver biopsy and records from [facility] liver clinic. The patient and her son (by telephone) expressed understanding and will follow- up as directed in 2 weeks for consent and likely start of therapy. --04/02/2020: Mojgan presents after infusion port placement at [facility] by interventional radiology due to platelet count [...] GERD, and fibromyalgia who [facility] mild to moderate [facility]ocytopenia. She states that she was followed with Dr. Kumari prior to his senior living and was told that she had an [...] The treatments were given with AP/PA vaz aexeqpmoy06 MV photons and MLC blocks. 3. Deferred [...] nonalcoholic steatohepatitis with cirrhosis, previously followed by [facility] gastroenterology. Cardiovascular: No Chest Pain, No Edema, [...] (Revlimid) 5 mg PO DAILY #21 cap 10/29/21 [Rx Confirmed 09/04/21] lenalidomide 5 mg capsule [...] 05/01/20 09:33 DB (Rec: 05/01/20 09:[address] [facility]) Distress Screening Distress Score: 0 No [...] Sodium 138, Potassium 3.9, Chloride 104, Carbon Uzpofmy78.9, BUN 13, Creatinine 0.66, Est GFR ( [...] % (Auto) 72.1, Lymph % (Auto) 21.2, Briscoe % (Auto) 6.1, Eos % (Auto) 0.4, Baso % (Auto) 0.2, Neut # (Auto) 1.8, Lymph # (Auto) 0.5 L,[place] # (Auto) 0.2, Eos # (Auto) 0.0, Baso # (Auto) 0.0, Nucleated RBC % (auto) 0.3, Platelet Estimate Decreased L, Plt Morphology Comment Normal, RBC Morphology Normal - Impressions f/u skeletal survey ordered to evaluate bone integrity prior to CAR-T assessment Assessment and Plan - TNM Staging Staging: Stage IIIA Multiple Myeloma ([place] criteria) (1) Multiple myeloma Qualifiers: Multiple myeloma [...] [facility] Her [facility] made her ineligible [...] the patient in hematology tumor board at [facility]. --Infusion port placed 03/22/2020 at [facility] due to low platelets. No complications. --03/12/2020: [...] prophylaxis. --We requested prior liver biopsy from [facility] for review of the extentof her [...] needed for cytopenias.Evaluation for CAR-T therapy at [facility]. Send myeloma labs and skeletal survey [...] I previously reviewed her outpatient records from [facility], including review of notes, laboratories, [...] She continues surveillance with liver clinic at [facility] and I will continue to follow her every 6 months, sooner if newbleeding issues arise. --04/02/2020: We reviewed informed consent for Daratumumab/Velcade/Dexamethasone for active myeloma therapy. I requested prior liver biopsy results and notes from liver clinic at [facility]. Platelet count in 40,000 range but [...] infiltration that may further impairher liver function. [facility] hepatology discussed liver transplant but sheis likely no longer a candidate for this given active myeloma. We chose least hepatotoxic regimen for treatment of her active myeloma with 50% dose reduction of Velcade. Liver function remained stable since start of therapy 04/10/2020. --Requested prior liver biopsy and [facility] liver clinic records. (5) Encounter for antineoplastic [...] for coordination of care (as documented) and yerf-cq-pktj counseling of patient and/or family. Dictated By: Fabiola Marinelli MD DD/ [id number] Signed By: <Electronically signed by MD Fabiola Marinelli> 09/21/21 1110 [facility] Work Phone: 1(317) 168-416511-19-2021 Progress note Author Silvestre Ahn [facility] September 20, 2021 11:01amNote Date/TimeNovember 2020 10:53[facility] at [address] [address] Rad Onc Follow Up Note - OP Signed Patient: Mojgan Pérez MR#: [id number] : 1955 Acct:[id number] Age/Sex: 66 / F Type: REG RCR [...] [facility] has continued to receive her systemic [...] & Chem 7: 09/17/21 15:36 09/17/21 15:36 Glpv-5-Nfvszhmtwmgja 1.9 mg/L (0.6-2.4) 12/07/18 16:14 Vbhip-7-Pfmehdkiw 0.3 g/dL (0.0-0.4) 07/05/21 10:50 Bkaqq-0-Odootmawt 0.6 g/dL (0.4-1.0) 07/05/21 10:50 Beta Globulins [...] than 30 minutes I spent 15 minutes ulqk-bl-hwbc time in this patient and more than [...] signed by Silvestre Ahn MD> 09/20/21 1101 [facility] Work Phone: 1(493) 250-283810-29-2021 Progress note Author Fabiola Marinleli [facility] August 30, 2021 8:18pmNote Date/TimeOctober 2020 10:[address] [place] [address] [place] [address] Hem/Onc Follow Up Note - OP Signed Patient: Mojgan Pérez MR#: [id number] : 1955 Acct:[id number] Age/Sex: 65 / F Type: REG RCR Copies to: MD Yinka Downey MD Ehsan Malek, MD Katherine M McGraw, FIBRE TECHNOLOGIST~ Subjective Date/Time of Service: Date of Service: [...] sent her for echocardiogram performed 08/23/[address] [facility] heart and vascular [place] as baseline for possible Kyprolis therapy. This returned with ejection fraction 60% which is normal with grade 1 left ventricular diastolic dysfunction and 1+ tricuspid valve regurgitation and trace to 1+ aortic valve regurgitation.Otherwise unremarkable. I discussed her case with Dr. Benavidez of malignant hematology at [facility]. He advised against Kyprolis therapy given her [...] spike). Slowly improving IgG to near normal. [place]/lambda light chain ratio normal with mildly increased [...] daughter) for cycle 8, week 2 followup xcjvfewodxa35 mg/kg IV weekly, Dexamethasone 20mg weekly, and [...] symptoms--improving thrombocytopenia to 79,000 and improved leukopenia. 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 Still [...] her case with Dr. Piter Benavidez at [facility] malignant hematology for optimal regimen. The [...] request prior liver biopsy and records from [facility] liver clinic. The patient and her son (by telephone) expressed understanding and will follow- up as directed in 2 weeks for consent and likely start of therapy. --04/02/2020: Mojgan presents after infusion port placement at [facility] by interventional radiology due to platelet count [...] (for liver dysfunction) 0.7mg/m2 D1,D4,D8, D11, and Hyirjackvgxns72hr IV weekly--repeat for every 3 week cycles [...] GERD, and fibromyalgia who was [facility] [place] [facility] mild to moderate [facility]ocyt[facility]. She states that she was followed with Dr. Kumari prior to his senior living and was told that she had an [...] The treatments were given with AP/PA vaz [id number] MV photons and MLC blocks. 3. Deferred [...] nonalcoholic steatohepatitis with cirrhosis, previously followed by [facility] gastroenterology. Cardiovascular: No Chest Pain, No Edema, [...] 05/01/20 09:33 DB (Rec: 05/01/20 09:[address] [facility]-NS-03) Distress Screening Distress Score: 0 No [...] - Other Results Results/Comments: 08/23/2021: Echocardiogram at [facility] heart and vascular [place] as baseline for possible Kyprolis therapy with ejection fraction 60%. grade 1 left ventricular diastolic dysfunction, 1+ tricuspid valve regurgitation and trace to1+ aortic valve regurgitation. Otherwise unremarkable. Assessment and Plan - TNM Staging Staging: Stage IIIA Multiple Myeloma ([place] criteria) (1) Multiple myeloma Qualifiers: Multiple myeloma [...] [facility] Her persistent thrombocytopenia made her ineligible [...] the patient in hematology tumor board at [facility]. --Infusion port placed 03/22/2020 at [facility] due to low platelets. No complications. --03/12/2020: [...] prophylaxis. --We requested prior liver biopsy from [facility] for review of the extentof her [...] function, thrombocytopenia, or neuropathy. I am sending [facility] for her hyperglycemia to [...] I previously reviewed her outpatient records from [facility], including review of notes, laboratories, [...] She continues surveillance with liver clinic at [facility] and I will continue to follow her every 6 months, sooner if newbleeding issues arise. --04/02/2020: We reviewed informed consent for Daratumumab/Velcade/Dexamethasone for active myeloma therapy. I requested prior liver biopsy results and notes from liver clinic at [facility]. Platelet count in 40,000 range but [...] infiltration that may further impairher liver function. [facility] hepatology discussed liver transplant but sheis likely no longer a candidate for this given active myeloma. We chose least hepatotoxic regimen for treatment of her active myeloma with 50% dose reduction of Velcade. Liver function remained stable since start of therapy 04/10/2020. --Requested prior liver biopsy and [facility] liver clinic records. (5) Encounter for antineoplastic [...] for coordination of care (as documented) and pvfh-np-nknn counseling of patient and/or family. Dictated By: Fabiola Marinelli MD DD/ 1033 Signed By: <Electronically signed by MD Fabiola Marinelli> 08/30/21 2018 [facility] Work Phone: 1(909) 400-638510-16-2021 Progress note Author Fabiola Marinelli [facility] August 17, 2021 4:24pmNote Date/TimeOct2020 1:[address] [place] [address] Cancer Center at [address] [address] Hem/Onc Follow Up Note - OP Signed Patient: Mojgan Pérez MR#: [id number] : 1955 Acct:[id number] Age/Sex: 65 / F Type: REG RCR [...] spike). Slowly improving IgG to near normal. [place]/lambda light chain ratio normal with mildly increased [...] daughter) for cycle 8, week 2 followup fnmfxzwxjry98 mg/kg IV weekly, Dexamethasone 20mg weekly, and [...] symptoms--improving thrombocytopenia to 79,000 and improved leukopenia. 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 Still [...] her case with Dr. Piter Benavidez at [facility] malignant hematology for optimal regimen. The [...] request prior liver biopsy and records from [facility] liver clinic. The patient and her son (by telephone) expressed understanding and will follow- up as directed in 2 weeks for consent and likely start of therapy. --04/02/2020: Mojgan presents after infusion port placement at [facility] by interventional radiology due to platelet count [...] (for liver dysfunction) 0.7mg/m2 D1,D4,D8, D11, and Qwwyulidpulgs99oc IV weekly--repeat for every 3 week cycles [...] GERD, and fibromyalgia who was [facility] [place] [facility] chronic mild to moderate thrombocytopenia. She states that she was followed with Dr. Kumari prior to his senior living and was told that she had an [...] is followed for EGD/colonoscopy with last documented ntbwleuav73/20/2018: 1. Normal EGD, 2. Mild sigmoid diverticulosis, [...] The treatments were given with AP/PA vaz jfndcdutw74 MV photons and MLC blocks. 3. Deferred [...] nonalcoholic steatohepatitis with cirrhosis, previously followed by [facility] gastroenterology. Cardiovascular: No Chest Pain, No Edema, [...] 65 IgA 53 IgM 22 IgM 22 [place] 11.9 [place] 10.6 Lambda 42.1 Lambda 32.9 K/L ratio [...] Staging Staging: Stage IIIA Multiple Myeloma ([place] criteria) (1) Multiple myeloma Qualifiers: Multiple myeloma [...] [facility] Her persistent thrombocytopenia made her ineligible [...] the patient in hematology tumor board at [facility]. --Infusion port placed 03/22/2020 at [facility] due to low platelets. No complications. --03/12/2020: [...] prophylaxis. --We requested prior liver biopsy from [facility] for review of the extentof her [...] I previously reviewed her outpatient records from [facility] [place], including review of notes, laboratories, and [...] She continues surveillance with liver clinic at [facility] and I will continue to follow her every 6 months, sooner if newbleeding issues arise. --04/02/2020: We reviewed informed consent for Daratumumab/Velcade/Dexamethasone for active myeloma therapy. I requested prior liver biopsy results and notes from liver clinic at [facility]. Platelet count in 40,000 range but [...] infiltration that may further impairher liver function. [facility] hepatology discussed liver transplant but sheis likely no longer a candidate for this given active myeloma. We chose least hepatotoxic regimen for treatment of her active myeloma with 50% dose reduction of Velcade. Liver function remained stable since start of therapy 04/10/2020. --Requested prior liver biopsy and [facility] liver clinic records. (5) Encounter for antineoplastic [...] for coordination of care (as documented) and qnbu-nr-bzwh counseling of patient and/or family. Dictated By: Fabiola Marinelli MD DD/ 1330 Signed By: <Electronically signed by MD Fabiola Marinelli> 08/17/21 6132 [facility] Work Phone: 1(146) 840-881609-24-2021 Progress note Author Silvestre Ahn [facility] July 26, 2021 8:00pmNote Date/TimeSeptember 2020 7:[facility]pmP[facility] [place] [address] Rad Onc Follow Up Note - OP Signed Patient: Mojgan Pérez MR#: [id number] : 1955 Acct:[id number] Age/Sex: 65 / F Type: REG RCR [...] & Chem 7: 07/05/21 10:50 07/05/21 10:50 Aqyc-3-Onnnbronulqkk 1.9 mg/L (0.6-2.4) 12/07/18 16:14 Keemn-5-Zenikgwgr 0.3 g/dL (0.0-0.4) 07/05/21 10:50 Nzvco-2-Mzibuhvok 0.6 g/dL (0.4-1.0) 07/05/21 10:50 Beta Globulins [...] than 30 minutes I spent 35 minutes gdhn-ms-bjnr time with this patient and more than 50% of timeallotted to patienteducation, answering questions, and coordinating care. N.B: Voice-recognition software was used in the creation of this note. Efforts were made to detect and correct typographical and/or grammatical errors;please excuse them should you find any. Dictated By: Silvestre Ahn MD DD/ 45 Signed By: <Electronically signed by Silvestre Ahn MD> 07/26/211999 [facility] Work Phone: 1(285) 359-755909-15-2021 Progress note Author Fabiola Marinelli [facility] July 17, 2021 4:42pmNote Date/TimeSeptember 2020 9:50[facility] at [place] [id number] Hem/Onc Follow Up Note - OP Signed Patient: Mojgan Pérez MR#: [id number] : 1955 Acct:[id number] Age/Sex: 65 / F Type: REG RCR Copies to: MD Yinka Downey MD Colleen R Calvey, MD Katherine M McGraw, FIBRE TECHNOLOGIST~ Subjective Date/Time of Service: Date of Service: [...] spike). Slowly improving IgG to near normal. [place]/lambda light chain ratio normal with mildly increased [...] daughter) for cycle 8, week 2 followup zgwgdwwjmos36 mg/kg IV weekly, Dexamethasone 20mg weekly, and [...] symptoms--improving thrombocytopenia to 79,000 and improved leukopenia. 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 Still [...] her case with Dr. Piter Benavidez at [facility] malignant hematology for optimal regimen. The [...] request prior liver biopsy and records from [facility] liver clinic. The patient and her son (by telephone) expressed understanding and will follow- up as directed in 2 weeks for consent and likely start of therapy. --04/02/2020: Mojgan presents after infusion port placement at [facility] by interventional radiology due to platelet count [...] (for liver dysfunction) 0.7mg/m2 D1,D4,D8, D11, and Wtccqtpomzqve93uf IV weekly--repeat for every 3 week cycles [...] GERD, and fibromyalgia who was [facility] [place] [facility] chronic mild to moderate thrombocytopenia. She states that she was followed with Dr. Kumari prior to his senior living and was told that she had an [...] The treatments were given with AP/PA vaz bagdlivxt10 MV photons and MLC blocks. 3. Deferred [...] nonalcoholic steatohepatitis with cirrhosis, previously followed by [facility] gastroenterology. Cardiovascular: No Chest Pain, No Edema, [...] 41.7, U Random Total Protein 14.0, U Pjgxi-3-Ojjujysf (%) 2.2, U Random h-3-Svhomnvb % 18.1, U Random b-Globulin % 27.3, U Random Gamma Glob % 10.6, U Random M-Jasapl(%) Comment:, Urine Random PEP Note - Impressions Date of Service: 07/17/21 XR/XR knee RT 2V: multiple myeloma patient severe hippain ([id number]) XR/XR hip RT min 2V(w/wo pelvis)*: multiple myeloma patient severehip pain ([id number]) XR/XR femur RT 2V*: patient with Myeloma [...] Staging Staging: Stage IIIA Multiple Myeloma ([place] criteria) (1) Multiple myeloma Qualifiers: Multiple myeloma [...] [facility] Her persistent thrombocytopenia made her ineligible [...] the patient in hematology tumor board at [facility]. --Infusion port placed 03/22/2020 at [facility] due to low platelets. No complications. --03/12/2020: [...] prophylaxis. --We requested prior liver biopsy from [facility] for review of the extentof her [...] I previously reviewed her outpatient records from [facility], including review of notes, laboratories, [...] She continues surveillance with liver clinic at [facility] and I will continue to follow her every 6 months, sooner if newbleeding issues arise. --04/02/2020: We reviewed informed consent for Daratumumab/Velcade/Dexamethasone for active myeloma therapy. I requested prior liver biopsy results and notes from liver clinic at [facility]. Platelet count in 40,000 range but [...] infiltration that may further impairher liver function. [facility] hepatology discussed liver transplant but sheis likely no longer a candidate for this given active myeloma. We chose least hepatotoxic regimen for treatment of her active myeloma with 50% dose reduction of Velcade. Liver function remained stable since start of therapy 04/10/2020. --Requested prior liver biopsy and [facility] liver clinic records. (6) Neutropenia, unspecified Qualifiers: [...] with absolute neutrophil count had improved to [id number]. We will continue to follow closely on [...] for coordination of care (as documented) and txmv-bh-lrxu counseling of patient and/or family. Dictated By: Fabiola Marinelli MD DD/ 0949 Signed By: <Electronically signed by MD Fabiola Marinelli> 07/17/21 2031 [facility] Work Phone: 1(116) 949-923207-24-2021 Progress note Author Fabiola Marinelli [facility] May 24, 2021 10:48pmNote Date/TimeJuly 2020 10:[address] [place] [address] [place] [address] Hem/Onc Follow Up Note - OP Signed Patient: Mojgan Pérez MR#: [id number] : 1955 Acct:[id number] Age/Sex: 65 / F Type: REG RCR Copies to: MD Yinka Downey MD Katherine M McGraw, FIBRE TECHNOLOGIST~ Subjective Date/Time of Service: Date of Service: [...] spike). Slowly improving IgG to near normal. [place]/lambda light chain ratio normal with mildly increased [...] daughter) for cycle 8, week 2 followup stcwjvwhdel19 mg/kg IV weekly, Dexamethasone 20mg weekly, and [...] symptoms--improving thrombocytopenia to 79,000 and improved leukopenia. 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 Still [...] her case with Dr. Piter Benavidez at [facility] malignant hematology for optimal regimen. The [...] request prior liver biopsy and records from [facility] liver clinic. The patient and her son (by telephone) expressed understanding and will follow- up as directed in 2 weeks for consent and likely start of therapy. --04/02/2020: Mojgan presents after infusion port placement at [facility] by interventional radiology due to platelet count [...] (for liver dysfunction) 0.7mg/m2 D1,D4,D8, D11, and Scqnfajlrolru12cg IV weekly--repeat for every 3 week cycles [...] GERD, and fibromyalgia [facility]. She states that she was followed with Dr. Kumari prior to his senior living and was told that she had an [...] The treatments were given with AP/PA vaz usdwakiyf71 MV photons and MLC blocks. 3. Deferred [...] nonalcoholic steatohepatitis with cirrhosis, previously followed by [facility] gastroenterology. Cardiovascular: No Chest Pain, No Edema, [...] Staging Staging: Stage IIIA Multiple Myeloma ([place] criteria) (1) Multiple myeloma Qualifiers: Multiple myeloma [...] [facility] Her persistent thrombocytopenia made her ineligible [...] the patient in hematology tumor board at [facility]. --Infusion port placed 03/22/2020 at [facility] due to low platelets. No complications. --03/12/2020: [...] prophylaxis. --We requested prior liver biopsy from [facility] for review of the extentof her [...] I previously reviewed her outpatient records from [facility] [facility], including review of notes, laboratories, and [...] She continues surveillance with liver clinic at [facility] and I will continue to follow her every 6 months, sooner if newbleeding issues arise. --04/02/2020: We reviewed informed consent for Daratumumab/Velcade/Dexamethasone for active myeloma therapy. I requested prior liver biopsy results and notes from liver clinic at [facility]. Platelet count in 40,000 range but [...] infiltration that may further impairher liver function. [facility] hepatology discussed liver transplant but sheis likely no longer a candidate for this given active myeloma. We chose least hepatotoxic regimen for treatment of her active myeloma with 50% dose reduction of Velcade. Liver function remained stable since start of therapy 04/10/2020. --Requested prior liver biopsy and [facility] liver clinic records. (5) Neutropenia, unspecified Qualifiers: [...] with absolute neutrophil count had improved to [phone]. We will continue to follow closely on [...] for coordination of care (as documented) and nujj-lx-xnqj counseling of patient and/or family. Dictated By: Fabiola Marinelli MD DD/ 1016 Signed By: <Electronically signed by MD Fabiola Marinelli> 05/24/21 2248 [facility] Work Phone: 1(872) 440-749007-02-2021 [facility]2021 Procedure note [facility]2021 [facility]-2021 [facility]-2021 Procedure [facility]2021 Progress note Author Fabiola Marinelli [facility] April 24, 2021 9:12pmNote Date/TimeJune 2020 3:34pmP[facility] [place] [address] Hem/Onc Follow Up Note - OP Signed Patient: Mojgan Pérez MR#: [id number] : 1955 Acct:[id number] Age/Sex: 65 / F Type: REG RCR Copies to: MD Yinka Downey MD Katherine M McGraw, FIBRE TECHNOLOGIST~ Subjective Date/Time of Service: Date of Service: [...] spike). Slowly improving IgG to near normal. [place]/lambda light chain ratio normal with mildly increased [...] daughter) for cycle 8, week 2 followup aemlprhsxvu98 mg/kg IV weekly, Dexamethasone 20mg weekly, and [...] symptoms--improving thrombocytopenia to 79,000 and improved leukopenia. 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 Still [...] her case with Dr. Piter Benavidez at [facility] malignant hematology for optimal regimen. The [...] request prior liver biopsy and records from [facility] liver clinic. The patient and her son (by telephone) expressed understanding and will follow- up as directed in 2 weeks for consent and likely start of therapy. --04/02/2020: Mojgan presents after infusion port placement at [facility] by interventional radiology due to platelet count [...] (for liver dysfunction) 0.7mg/m2 D1,D4,D8, D11, and Quhzczlvuxpsk45cz IV weekly--repeat for every 3 week cycles [...] GERD, and fibromyalgia who was [facility] for chronic mild to moderate thrombocytopenia. She states that she was followed with Dr. Kumari prior to his senior living and was told that she had an [...] nonalcoholic steatohepatitis with cirrhosis, previously followed by [facility] gastroenterology. Cardiovascular: No Chest Pain, No Edema, [...] Social History Comments: [facility] Medications & Allergies Allergies [...] #30 cap 03/11/21 [Rx Confirmed 04/24/21] vitamin M08-rpskm acid 1 tab PO DAILY 03/28/21 [History [...] Staging Staging: Stage IIIA Multiple Myeloma ([place] criteria) (1) Multiple myeloma Qualifiers: Multiple myeloma [...] [facility] Her persistent thrombocytopenia made her ineligible [...] the patient in hematology tumor board at [facility]. --Infusion port placed 03/22/2020 at [facility] due to low platelets. No complications. --03/12/2020: [...] prophylaxis. --We requested prior liver biopsy from [facility] for review of the extentof her [...] function, thrombocytopenia, or neuropathy. I am sending [facility] for her hyperglycemia to [...] I previously reviewed her outpatient records from [facility], including review of notes, laboratories, and [...] She continues surveillance with liver clinic at [facility] and I will continue to follow her every 6 months, sooner if newbleeding issues arise. --04/02/2020: We reviewed informed consent for Daratumumab/Velcade/Dexamethasone for active myeloma therapy. I requested prior liver biopsy results and notes from liver clinic at [facility]. Platelet count in 40,000 range but [...] infiltration that may further impairher liver function. [facility] hepatology discussed liver transplant but sheis likely no longer a candidate for this given active myeloma. We chose least hepatotoxic regimen for treatment of her active myeloma with 50% dose reduction of Velcade. Liver function remained stable since start of therapy 04/10/2020. --Requested prior liver biopsy and [facility] liver clinic records. (5) Neutropenia, unspecified Qualifiers: [...] with absolute neutrophil count had improved to [phone]. We will continue to follow closely on [...] for coordination of care (as documented) and gbnf-uh-tctb counseling of patient and/or family. Dictated By: Fabiola Marinelli MD DD/ 1534 Signed By: <Electronically signed by MD Fabiola Marinelli> 04/24/212111 [facility] Work Phone: 1(851) 618-570105-28-2021 Progress note Author Fabiola Marinelli [facility] March 29, 2021 9:10pmNote Date/TimeMay 2020 1:36pmP[facility] [place] [address] Hem/Onc Follow Up Note - OP Signed Patient: Mojgan Pérez MR#: [id number] : 1955 Acct:[id number] Age/Sex: 65 / F Type: REG RCR [...] spike). Slowly improving IgG to near normal. [place]/lambda light chain ratio normal with mildly increased [...] daughter) for cycle 8, week 2 followup iymwlqdnwgr50 mg/kg IV weekly, Dexamethasone 20mg weekly, and [...] symptoms--improving thrombocytopenia to 79,000 and improved leukopenia. 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 Still [...] her case with Dr. Piter Benavidez at [facility] malignant hematology for optimal regimen. The [...] request prior liver biopsy and records from [facility] liver clinic. The patient and her son (by telephone) expressed understanding and will follow- up as directed in 2 weeks for consent and likely start of therapy. --04/02/2020: Mojgan presents after infusion port placement at [facility] by interventional radiology due to platelet count [...] (for liver dysfunction) 0.7mg/m2 D1,D4,D8, D11, and Dlwepdacudchh46zg IV weekly--repeat for every 3 week cycles [...] GERD, and fibromyalgia who [facility] to moderate [facility]. She states that she was followed with Dr. Kumari prior to his senior living and was told that she had an [...] The treatments were given with AP/PA vaz edmtmsnwc39 MV photons and MLC blocks. 3. Deferred [...] nonalcoholic steatohepatitis with cirrhosis, previously followed by [facility] gastroenterology. Cardiovascular: No Chest Pain, No Edema, [...] PO DAILY #30 cap 03/11/21 [Rx] vitamin K95-txqmr acid 1 tab PO DAILY 03/28/21 [History [...] Most Recent CBC and CMP 03/18/21 13:08 03/18/21 13:08 - Impressions MRI thoracic spine ordered for neck pain evaluation. PET/CT F-18 to evaluate for response vs. progression late April 2021. Assessment and Plan - TNM Staging Staging: Stage IIIA Multiple Myeloma ([place] criteria) (1) Multiple myeloma Qualifiers: Multiple myeloma [...] [facility] Her persistent thrombocytopenia made her ineligible [...] the patient in hematology tumor board at [facility]. --Infusion port placed 03/22/2020 at [facility] due to low platelets. No complications. --03/12/2020: [...] prophylaxis. --We requested prior liver biopsy from [facility] for review of the extentof her [...] I previously reviewed her outpatient records from [facility], including review of notes, laboratories, [...] She continues surveillance with liver clinic at [facility] and I will continue to follow her every 6 months, sooner if newbleeding issues arise. --04/02/2020: We reviewed informed consent for Daratumumab/Velcade/Dexamethasone for active myeloma therapy. I requested prior liver biopsy results and notes from liver clinic at [facility]. Platelet count in 40,000 range but [...] infiltration that may further impairher liver function. [facility] hepatology discussed liver transplant but sheis likely no longer a candidate for this given active myeloma. We chose least hepatotoxic regimen for treatment of her active myeloma with 50% dose reduction of Velcade. Liver function remained stable since start of therapy 04/10/2020. --Requested prior liver biopsy and [facility] liver clinic records. (5) Neutropenia, unspecified Qualifiers: [...] for coordination of care (as documented) and qbdd-oc-narn counseling of patient and/or family. Dictated By: Fabiola Marinelli MD DD/ 1336 Signed By: <Electronically signed by MD Fabiola Marinelli> 03/29/212109 [facility] Work Phone: 1(246) 862-812403-22-2021 Progress note Author Fabiola Marinelli [facility] January 21, 2021 7:54pmNote Date/TimeMarch 2020 11:12[facility] [place] [id number] Hem/Onc Follow Up Note - OP Signed Patient: Mojgan Pérez MR#: [id number] : 1955 Acct:[id number] Age/Sex: 65 / F Type: REG RCR [...] daughter) for cycle 8, week 2 followup vyznwahvxri56 mg/kg IV weekly, Dexamethasone 20mg weekly, and [...] symptoms--improving thrombocytopenia to 79,000 and improved leukopenia. 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 Still [...] her case with Dr. Piter Benavidez at [facility] malignant hematology for optimal regimen. The [...] request prior liver biopsy and records from [facility] liver clinic. The patient and her son (by telephone) expressed understanding and will follow- up as directed in 2 weeks for consent and likely start of therapy. --04/02/2020: Mojgan presents after infusion port placement at [facility] by interventional radiology due to platelet count [...] (for liver dysfunction) 0.7mg/m2 D1,D4,D8, D11, and Plxkrehyapoki04fp IV weekly--repeat for every 3 week cycles [...] GERD, and fibromyalgia [facility]. She states that she was followed with Dr. Kumari prior to his senior living and was told that she had an [...] nonalcoholic steatohepatitis with cirrhosis, previously followed by [facility] gastroenterology. Cardiovascular: No Chest Pain, No Edema, [...] foot. Note is otherwise made of an Asxxks-m-Brzl on theright. Atherosclerotic disease is seen. The gallbladder is surgically absent. The uterus is also surgically absent. There is a suprapubic ventral hernia containing fat without acute complication. PET/PET f-18 bone subq (nopr) IMPRESSION: Relatively stable findings. Impression dictated by: Mansoor Vaca Jr., M.D.01/14/2021 7:09 PM XR hand LT [...] Staging Staging: Stage IIIA Multiple Myeloma ([place] criteria) (1) Multiple myeloma Qualifiers: Multiple myeloma [...] [facility] Her persistent thrombocytopenia made her ineligible [...] the patient in hematology tumor board at [facility]. --Infusion port placed 03/22/2020 at [facility] due to low platelets. No complications. --03/12/2020: [...] prophylaxis. --We requested prior liver biopsy from [facility] for review of the extentof her [...] Dr. Benavidez regarding treatment options and coordinated [facility] malignant hematology tumor board presentation. 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 I previously reviewed her outpatient records from [facility], including review of notes, laboratories, [...] She continues surveillance with liver clinic at [facility] and I will continue to follow her every 6 months, sooner if newbleeding issues arise. --04/02/2020: We reviewed informed consent for Daratumumab/Velcade/Dexamethasone for active myeloma therapy. I requested prior liver biopsy results and notes from liver clinic at [facility]. Platelet count in 40,000 range but [...] infiltration that may further impairher liver function. [facility] hepatology discussed liver transplant but sheis likely no longer a candidate for this given active myeloma. We chose least hepatotoxic regimen for treatment of her active myeloma with 50% dose reduction of Velcade. Liver function remained stable since start of therapy 04/10/2020. --Requested prior liver biopsy and [facility] liver clinic records. (4) Neutropenia, unspecified Qualifiers: [...] with absolute neutrophil count had improved to [phone]. We will continue to follow closely on [...] for coordination of care (as documented) and lwnf-oq-covm counseling of patient and/or family. Dictated By: Fabiola Marinelli MD DD/ 1111 Signed By: <Electronically signed by MD Fabiola Marinelli> 01/21/211953 [facility] Work Phone: [phone]) 980-935401-26-2021 Progress note Author Fabiola Marinelli [facility] November 27, 2020 9:17amNote Date/TimeJan2020 10:36[facility] [place] [address] Hem/Onc Follow Up Note - OP Signed Patient: Mojgan Pérez MR#: [id number] : 1955 Acct:[id number] Age/Sex: 65 / F Type: REG RCR [...] daughter) for cycle 8, week 2 followup jvlrmzujauq49 mg/kg IV weekly, Dexamethasone 20mg weekly, and [...] symptoms--improving thrombocytopenia to 79,000 and improved leukopenia. 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 Still [...] I will discuss her case with Dr. Pitre Benavidez at [facility] malignant hematology for optimal regimen. The [...] request prior liver biopsy and records from [facility] liver clinic. The patient and her son (by telephone) expressed understanding and will follow- up as directed in 2 weeks for consent and likely start of therapy. --04/02/2020: Mojgan presents after infusion port placement at [facility] by interventional radiology due to platelet count [...] (for liver dysfunction) 0.7mg/m2 D1,D4,D8, D11, and Wpguyinszioie23tm IV weekly--repeat for every 3 week cycles [...] GERD, and fibromyalgia who [facility] to moderate [facility]. She states that she was followed with Dr. Kumari prior to his senior living and was told that she had an [...] The treatments were given with AP/PA vaz rexisllkg19 MV photons and MLC blocks. 3. Deferred [...] nonalcoholic steatohepatitis with cirrhosis, previously followed by [facility] gastroenterology. Cardiovascular: No Chest Pain, No Edema, [...] Social History Comments: Lives with son a grandcathi Home Medications & Allergies Allergies latex Allergy [...] 5,000 mcg PO QWEEK 10/29/20 [History Confirmed 01/25/21] azithromycin [Zithromax Z-Emiliano] 250 mg PO DAILY [...] 43.2, U Random Total Protein 24.9, U Itctx-1-Rhujkjwe (%) 3.4, U Random u-9-Bcwvwqfy % 16.1, U Random b-Globulin % 25.4, U Random Gamma Glob % 11.9, U Random M-Jaspal(%) Comment:, Urine Random PEP Note 11/19/20 09:55: Serum Total Protein 5.4 L, Albumin (Send Out) 3.1, Globulin (PEP) 2.3, Albumin/Globulin (PEP) 1.3, Wjtzw-7-Ytonxbesm 0.3, Lbkeb-0-Lfcepytdh 0.7, Beta Globulins 0.8, Gamma Globulins 0.4, M-Jaspal 0.1 H, PEP Note , IgG 551 L, IgA 52 L, IgM 22 L, Free [place] LC, Quant 9.5, Free Lambda LC, Quant 25.8, Free [place]/Lambda Ratio 0.37 - Impressions F-18 PET/CT (one year f/u) ordered for 12/2020 for response to therapy assessment. Will review next visit. Assessment and Plan - TNM Staging Staging: Stage IIIA Multiple Myeloma ([place] criteria) (1) Multiple myeloma Qualifiers: Multiple myeloma [...] [facility] Her persistent thrombocytopenia made her ineligible [...] the patient in hematology tumor board at [facility]. --Infusion port placed 03/22/2020 at [facility] due to low platelets. No complications. --03/12/2020: [...] prophylaxis. --We requested prior liver biopsy from [facility] for review of the extentof her [...] function, thrombocytopenia, or neuropathy. I am sending [facility] for her hyperglycemia to [...] Dr. Benavidez regarding treatment options and coordinated [facility] hematology tumor board presentation. (2) Hematuria 3 days gross hematuria--r/o infection vs. stone. UA and culture ordered and will call with results. 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 I previously reviewed her outpatient records from [facility], including review of notes, laboratories, and [...] She continues surveillance with liver clinic at [facility] and I will continue to follow her every 6 months, sooner if newbleeding issues arise. --04/02/2020: We reviewed informed consent for Daratumumab/Velcade/Dexamethasone for active myeloma therapy. I requested prior liver biopsy results and notes from liver clinic at [facility]. Platelet count in 40,000 range but [...] infiltration that may further impairher liver function. [facility] hepatology discussed liver transplant but sheis likely no longer a candidate for this given active myeloma. We chose least hepatotoxic regimen for treatment of her active myeloma with 50% dose reduction of Velcade. Liver function remained stable since start of therapy 04/10/2020. --Requested prior liver biopsy and [facility] liver clinic records. (5) Neutropenia, unspecified Qualifiers: [...] with absolute neutrophil count had improved to [phone]. We will continue to follow closely on [...] for coordination of care (as documented) and tcld-im-mimt counseling of patient and/or family. Dictated By: Fabiola Marinelli MD DD/ [id number] Signed By: <Electronically signed by MD Fabiola Marinelli> 11/27/20 0917 [facility] Work Phone: 1([phone]) 384-897612-28-2020 Progress note Author Silvestre Ahn [facility] October 29, 2020 2:30pmNote Date/TimeDecemb2019 2:26pmP[facility] [place] [address] Rad Onc Follow Up Note - OP Signed Patient: Mojgan Pérez MR#: [id number] : 1955 Acct:[id number] Age/Sex: 65 / F Type: REG RCR [...] & Chem 7: 10/29/20 12:49 10/29/20 12:49 Znvn-1-Tnggtxljmppfo 1.9 mg/L (0.6-2.4) 12/07/18 16:14 Cfabr-4-Eekvsfufr 0.3 g/dL (0.0-0.4) 09/21/20 10:42 Bzmzn-4-Voezxlcvc 0.8 g/dL (0.4-1.0) 09/21/20 10:42 Beta Globulins [...] any. Dictated By: Silvestre Ahn MD DD/ Signed By: <Electronically signed by Silvestre Ahn MD> 10/29/20 1536 [facility] Work Phone: [phone]) [phone] Progress note Author Fabiola Marinelli [facility] September 25, 2020 6:48amNote Date/TimeNovember 2019 11:59[facility] [place] [address] Hem/Onc Follow Up Note - OP Signed Patient: Mojgan Pérez MR#: [id number] : 1955 Acct:[id number] Age/Sex: 65 / F Type: REG RCR [...] daughter) for cycle 8, week 2 followup ntwhuocqipk22 mg/kg IV weekly, Dexamethasone 20mg weekly, and [...] symptoms--improving thrombocytopenia to 79,000 and improved leukopenia. 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 Still [...] her case with Dr. Piter Benavidez at [facility] malignant hematology for optimal regimen. The [...] request prior liver biopsy and records from [facility] liver clinic. The patient and her son (by telephone) expressed understanding and will follow- up as directed in 2 weeks for consent and likely start of therapy. --04/02/2020: Mogjan presents after infusion port placement at [facility] by interventional radiology due to platelet count [...] (for liver dysfunction) 0.7mg/m2 D1,D4,D8, D11, and Hbzbwhhujuqvb53gs IV weekly--repeat for every 3 week cycles [...] GERD, and fibromyalgia who [facility] to moderate [facility]ocytopenia. She states that she was followed with Dr. Kumari prior to his senior living and was told that she had an [...] The treatments were given with AP/PA vaz xpyntbaja88 MV photons and MLC blocks. 3. Deferred [...] nonalcoholic steatohepatitis with cirrhosis, previously followed by [facility] gastroenterology. Cardiovascular: No Chest Pain, No Edema, [...] Creatinine Clear 115.89, Sodium 137, Potassium 4.1, Fpqlcjfr364, Carbon Blchmoy64.9, BUN 16, Creatinine 0.56, Est GFR ( [...] % (Auto) 35.0, Lymph % (Auto) 52.3, Briscoe % (Auto) 11.4, Eos % (Auto) 1.2, Baso % (Auto) 0.1, Neut # (Auto) 1.2 L, Lymph # (Auto) 1.7, [place]iscoe # (Auto) 0.4, Eos # (Auto) 0.0, Baso # (Auto) 0.0, Nucleated RBC % (auto) 0.1 09/21/20 10:42: IgG 556 L 09/21/20 10:42: IgA 52 L, IgM 24 L, Free [place] LC, Quant 9.1, Free Lambda LC, Quant 18.3, Free [place]/Lambda Ratio 0.50 - Impressions No new imaging [...] [facility]. Her persistent thrombocytopenia made her ineligible [...] the patient in hematology tumor board at [facility]. --Infusion port placed 03/22/2020 at [facility] due to low platelets. No complications. --03/12/2020: [...] prophylaxis. --We requested prior liver biopsy from [facility] for review of the extentof her [...] Dr. Benavidez regarding treatment options and coordinated [facility] hematology tumor board presentation. 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 I previously reviewed her outpatient records from [facility], including review of notes, laboratories, [...] She continues surveillance with liver clinic at [facility] and I will continue to follow her every 6 months, sooner if newbleeding issues arise. --04/02/2020: We reviewed informed consent for Daratumumab/Velcade/Dexamethasone for active myeloma therapy. I requested prior liver biopsy results and notes from liver clinic at [facility]. Platelet count in 40,000 range but [...] infiltration that may further impairher liver function. [facility] hepatology discussed liver transplant but sheis likely no longer a candidate for this given active myeloma. We chose least hepatotoxic regimen for treatment of her active myeloma with 50% dose reduction of Velcade. Liver function remained stable since start of therapy 04/10/2020. --Requested prior liver biopsy and [facility] liver clinic records. (4) Neutropenia, unspecified Qualifiers: [...] with absolute neutrophil count had improved to [phone]. We will continue to follow closely on [...] for coordination of care (as documented) and nwvj-qa-ycrx counseling of patient and/or family. Dictated By: Fabiola Marinelli MD DD/ 1159 Signed By: <Electronically signed by MD Fabiola Marinelli> 09/25/20 0648 [facility] Work Phone: 1([phone]) 820-179310-12-2020 Progress note Author Fabiola Marinelli [facility] August 13, 2020 8:57pmNote Date/TimeOct2019 10:11[facility] [address] [address] Hem/Onc Follow Up Note - OP Signed Patient: Mojgan Pérez MR#: [id number] : 1955 Acct:[id number] Age/Sex: 64 / F Type: REG RCR [...] symptoms--improving thrombocytopenia to 79,000 and improved leukopenia. 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 Still [...] her case with Dr. Piter Benavidez at [facility] malignant hematology for optimal regimen. The [...] request prior liver biopsy and records from [facility] liver clinic. The patient and her son (by telephone) expressed understanding and will follow- up as directed in 2 weeks for consent and likely start of therapy. --04/02/2020: Mojgan presents after infusion port placement at [facility] by interventional radiology due to platelet count [...] (for liver dysfunction) 0.7mg/m2 D1,D4,D8, D11, and Bteamzdwxoybr18xl IV weekly--repeat for every 3 week cycles [...] GERD, and fibromyalgia who [facility] mild to moderate thrombocytopenia. She states that she was followed with Dr. Kumari prior to his senior living and was told that she had an [...] The treatments were given with AP/PA vaz imlmploxt63 MV photons and MLC blocks. 3. Deferred [...] nonalcoholic steatohepatitis with cirrhosis, previously followed by [facility] gastroenterology. Cardiovascular: No Chest Pain, No [...] Creatinine Clear 140.40, Sodium 140, Potassium 3.8, Bhrpqiam953, Carbon Tbkydob28.0, BUN 12, Creatinine 0.48, Est GFR ( [...] % (Auto) 35.7, Lymph % (Auto) 50.1, Briscoe % (Auto) 8.8, Eos % (Auto) 5.3, Baso % (Auto) 0.1, Neut # (Auto) 1.4 L, Lymph # (Auto) 2.0, Briscoe # (Auto) 0.3, Eos # (Auto) 0.2, [...] [facility]. Her [facility] made her ineligible [...] the patient in hematology tumor board at [facility]. --Infusion port placed 03/22/2020 at [facility] due to low platelets. No complications. --03/12/2020: [...] prophylaxis. --We requested prior liver biopsy from [facility] for review of the extentof her [...] Dr. Benavidez regarding treatment options and coordinated [facility] hematology tumor board presentation. 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 I previously reviewed her outpatient records from [facility], including review of notes, laboratories, [...] She continues surveillance with liver clinic at [facility] and I will continue to follow her every 6 months, sooner if newbleeding issues arise. --04/02/2020: We reviewed informed consent for Daratumumab/Velcade/Dexamethasone for active myeloma therapy. I requested prior liver biopsy results and notes from liver clinic at [facility]. Platelet count in 40,000 range but [...] infiltration that may further impairher liver function. [facility] hepatology discussed liver transplant but sheis likely no longer a candidate for this given active myeloma. We chose least hepatotoxic regimen for treatment of her active myeloma with 50% dose reduction of Velcade. Liver function remained stable since start of therapy 04/10/2020. --Requested prior liver biopsy and [facility] liver clinic records. (4) Neutropenia, unspecified Qualifiers: [...] with absolute neutrophil count had improved to [phone]. We will continue to follow closely on [...] for coordination of care (as documented) and dfjz-zs-wzai counseling of patient and/or family. Dictated By: Fabiola Marinelli MD DD/ 1010 Signed By: <Electronically signed by MD Fabiola Marinelli> 08/13/202056 [facility] Work Phone: 1(891) 474-360008-18-2020 Progress note Author Fabiola Marinelli [facility] June 19, 2020 9:53pmNote Date/TimeAugust 2019 2:11pmP[facility] [place] [address] Hem/Onc Follow Up Note - OP Signed Patient: Mojgan Pérez MR#: [id number] : 1955 Acct:[id number] Age/Sex: 64 / F Type: REG RCR [...] Mojgan presents after infusion port placement at [facility] by interventional radiologydue to platelet count 40,000--she [...] (for liver dysfunction) 0.7mg/m2 D1,D4,D8, D11, and Obgeyqzrbqhwm45jl IV weekly--repeat for every 3 week cycles [...] her case with Dr. Piter Benavidez at [facility] malignant hematology for optimal regimen. The [...] request prior liver biopsy and records from [facility] liver clinic. The patient and her son (by telephone) expressed understanding and will follow- up as directed in 2 weeks for consent and likely start of therapy. This is a 64-year-old lady on chronic disability has a history of arthritis, diabetes mellitus, hypertension, COPD, GERD, and fibromyalgia who [facility] to moderate [facility]ocytopenia. She states that she was followed with Dr. Kumari prior to his senior living and was told that she had an [...] The treatments were given with AP/PA vaz ccuitwowl11 MV photons and MLC blocks. 3. Deferred [...] nonalcoholic steatohepatitis with cirrhosis, previously followed by [facility] gastroenterology. Cardiovascular: No Chest Pain, No [...] Confirmed 06/18/20] metformin 500 mg PO BID 05/04/20 [History Confirmed 06/18/20] acyclovir 400 mg PO [...] % (Auto) 35.1, Lymph % (Auto) 52.5, Briscoe % (Auto) 10.0, Eos % (Auto) 2.3, Baso % (Auto) 0.1, Neut # (Auto) 1.0 L, Lymph # (Auto) 1.4, Briscoe # (Auto) 0.3, Eos # (Auto) 0.1, Baso # (Auto) 0.0, Nucleated RBC % (auto) 0.4 06/11/20 10:02: Serum Total Protein 5.2 L, Albumin (Send Out) 3.0, Globulin (PEP) 2.2, Albumin/Globulin (PEP) 1.4, Lqngs-8-Zvbbcwpyi 0.3, Oedbu-9-Utposnmwn 0.6, Beta Globulins 0.8, Gamma Globulins 0.5, M-Jaspal 0.2 H, PEP Note , IgG 644,IgA 72 L, IgM 33, Serum Immunofixation , Free [place] LC, Quant 8.9, Free Lambda LC, Quant 18.5, Free [place]/Lambda Ratio 0.48 - Impressions Date of Service: 05/31/20 MR/MR cervical spine wo con: myeloma with neck pain, r/o lytic lesion/unstable ([id number]) XR/XR pre/post mri xray: C90.00 Copies to: [...] for [facility]. [facility]ocytopenia made her ineligible [...] the patient in hematology tumor board at [facility]. --Infusion port placed 03/22/2020 at [facility] due to low platelets. No complications. --03/12/2020: [...] prophylaxis. --We requested prior liver biopsy from [facility] for review of the extentof her [...] Dr. Benavidez regarding treatment options and coordinated [facility] hematology tumor board presentation. 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 I previously reviewed her outpatient records from [facility], including review of notes, laboratories, [...] She continues surveillance with liver clinic at [facility] and I will continue to follow her every 6 months, sooner if newbleeding issues arise. --04/02/2020: We reviewed informed consent for Daratumumab/Velcade/Dexamethasone for active myeloma therapy. I requested prior liver biopsy results and notes from liver clinic at [facility]. Platelet count in 40,000 range but [...] infiltration that may further impairher liver function. [facility] hepatology discussed liver transplant but sheis likely no longer a candidate for this given active myeloma. We chose least hepatotoxic regimen for treatment of her active myeloma with 50% dose reduction of Velcade. Liver function remained stable since start of therapy 04/10/2020. --Requested prior liver biopsy and [facility] liver clinic records. (4) Neutropenia, unspecified Qualifiers: [...] for coordination of care (as documented) and kqbk-dm-turl counseling of patient and/or family. Dictated By: Fabiola Marinelli MD DD/ 1411 Signed By: <Electronically signed by MD Fabiola Marinelli> 06/19/20 [address] [facility] Work Phone: [phone] Progress note Author Fabiola Marinelli [facility] May 22, 2020 9:32pmNote Date/TimeJuly 2019 2:08pmP[facility] [place] [id number] Hem/Onc Follow Up Note - OP Signed Patient: Mojgan Pérez MR#: [id number] : 1955 Acct:[id number] Age/Sex: 64 / F Type: REG RCR [...] control improved. No other complaints. Continue monthly f/uwith myeloma labs. --Diabetes management--added insulin on dexamethasone [...] Mojgan presents after infusion port placement at [facility] by interventional radiologydue to platelet count 40,000--she [...] (for liver dysfunction) 0.7mg/m2 D1,D4,D8, D11, and Roljjtisnwose61yt IV weekly--repeat for every 3 week cycles [...] her case with Dr. Piter Benavidez at [facility] malignant hematology for optimal regimen. The [...] request prior liver biopsy and records from [facility] liver clinic. The patient and her son (by telephone) expressed understanding and will follow- up as directed in 2 weeks for consent and likely start of therapy. This is a 64-year-old lady on chronic disability has a history of arthritis, diabetes mellitus, hypertension, COPD, GERD, and fibromyalgia [facility]. She states that she was followed with Dr. Kumari prior to his senior living and was told that she had an [...] The treatments were given with AP/PA vaz [id number] MV photons and MLC blocks. 3. Deferred [...] nonalcoholic steatohepatitis with cirrhosis, previously followed by [facility] gastroenterology. Cardiovascular: No Chest Pain, No [...] 7 Days 05/21/20 13:10: PHA Creatinine Clear [id number], Sodium 135 L, Potassium 3.6, Chloride 102, [...] (auto) 0.3 05/15/20 08:10: PHA Creatinine Clear 117.8629723986, Sodium 137, Potassium 3.6, Chloride 103, Carbon [...] % (Auto) 36.5, Lymph % (Auto) 48.8, Briscoe % (Auto) 11.7, Eos % (Auto) 2.9, Baso % (Auto) 0.1, Neut # (Auto) 1.0 L, Lymph # (Auto) 1.3, Briscoe # (Auto) 0.3, Eos # (Auto) 0.1, [...] [facility]. Her persistent thrombocytopenia made her ineligible [...] the patient in hematology tumor board at [facility]. --Infusion port placed 03/22/2020 at [facility] due to low platelets. No complications. --03/12/2020: [...] prophylaxis. --We requested prior liver biopsy from [facility] for review of the extentof her [...] Dr. Benavidez regarding treatment options and coordinated [facility] hematology tumor board presentation. 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 I previously reviewed her outpatient records from [facility], including review of notes, laboratories, [...] She continues surveillance with liver clinic at [facility] and I will continue to follow her every 6 months, sooner if newbleeding issues arise. --04/02/2020: We reviewed informed consent for Daratumumab/Velcade/Dexamethasone for active myeloma therapy. I requested prior liver biopsy results and notes from liver clinic at [facility]. Platelet count in 40,000 range but [...] infiltration that may further impairher liver function. [facility] hepatology discussed liver transplant but sheis likely no longer a candidate for this given active myeloma. We chose least hepatotoxic regimen for treatment of her active myeloma with 50% dose reduction of Velcade. Liver function remained stable since start of therapy 04/10/2020. --Requested prior liver biopsy and [facility] liver clinic records. (4) Neutropenia, unspecified Qualifiers: [...] f/u in weight reduction clinic. Defer to [facility]. (7) Cancer-related pain Improved symptoms after palliative [...] for coordination of care (as documented) and hcrw-um-oyto counseling of patient and/or family. Dictated By: Fabiola Marinelli MD DD/ 1407 Signed By: <Electronically signed by MD Fabiola Marinelli> 05/22/20 [address] [facility] Work Phone: [phone] Progress note Author Fabiola Marinelli [facility] April 19, 2020 12:38pmNote Date/TimeJune 2019 8:37[facility] [place] [address] Hem/Onc Follow Up Note - OP Signed Patient: Mojgan Pérez MR#: [id number] : 1955 Acct:[id number] Age/Sex: 64 / F Type: REG RCR [...] Mojgan presents after infusion port placement at [facility] by interventional radiologydue to platelet count 40,000--she [...] her case with Dr. Piter Benavidez at [facility] malignant hematology for optimal regimen. The [...] request prior liver biopsy and records from [facility] liver clinic. The patient and her son (by telephone) expressed understanding and will follow- up as directed in 2 weeks for consent and likely start of therapy. This is a 64-year-old lady on chronic disability has a history of arthritis, diabetes mellitus, hypertension, COPD, GERD, and fibromyalgia who [facility] to moderate [facility]. She states that she was followed with Dr. Kumari prior to his senior living and was told that she had an [...] The treatments were given with AP/PA vaz [id number] MV photons and MLC blocks. 3. Deferred [...] nonalcoholic steatohepatitis with cirrhosis, previously followed by [facility] gastroenterology. Cardiovascular: No Chest Pain, No [...] 7 Days 04/17/20 08:14: PHA Creatinine Clear [id number], Sodium 137, Potassium 3.9, Chloride 103, Carbon [...] % (Auto) 53.0, Lymph % (Auto) 37.3, Briscoe % (Auto) 5.4, Eos % (Auto) 4.2, Baso % (Auto) 0.1, Neut # (Auto) 1.4 L, Lymph # (Auto) 1.0, Briscoe # (Auto) 0.1, Eos # (Auto) 0.1, [...] [facility]. Her persistent thrombocytopenia made her ineligible [...] the patient in hematology tumor board at [facility]. --Infusion port placed 03/22/2020 at [facility] due to low platelets. No complications. --03/12/2020: [...] prophylaxis. --We requested prior liver biopsy from [facility] for review of the extentof her [...] Dr. Benavidez regarding treatment options and coordinated [facility] malignant hematology tumor board presentation. 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 I previously reviewed her outpatient records from [facility] [place], including review of notes, laboratories, and [...] She continues surveillance with liver clinic at [facility] and I will continue to follow her every 6 months, sooner if newbleeding issues arise. --04/02/2020: We reviewed informed consent for Daratumumab/Velcade/Dexamethasone for active myeloma therapy. I requested prior liver biopsy results and notes from liver clinic at [facility]. Platelet count in 40,000 range but [...] infiltration that may further impairher liver function. [facility] hepatology discussed liver transplant but sheis likely no longer a candidate for this given active myeloma. We chose least hepatotoxic regimen for treatment of her active myeloma with 50% dose reduction of Velcade. Liver function remained stable since start of therapy 04/10/2020. --Requesting prior liver biopsy and [facility] liver clinic records. (4) Neutropenia, unspecified Qualifiers: [...] for coordination of care (as documented) and fpfw-si-erls counseling of patient and/or family. Dictated By: Fabiola Marinelli MD DD/ 0837 Signed By: <Electronically signed by MD Fabiola Marinelli> 04/19/20 [address] [facility] Work Phone: [phone]) [phone] Progress note Author Silvestre Ahn [facility] April 13, 2020 5:44pmNote Date/TimeJun2019 3:03pmP[facility] [place] [address] Rad Onc Follow Up Note - OP Signed Patient: Mojgan Pérez MR#: [id number] : 1955 Acct:[id number] Age/Sex: 64 / F Type: REG RCR [...] & Chem 7: 04/05/20 11:30 04/05/20 11:30 Arnn-4-Omqgsqymjzggw 1.9 mg/L (0.6-2.4) 12/07/18 16:14 Ujlnu-5-Uwbqnsklu 0.3 g/dL (0.0-0.4) 03/12/20 10:03 Tvxqr-4-Ykjamlaud 0.5 g/dL (0.4-1.0) 03/12/20 10:03 Beta Globulins [...] <Electronically signed by Silvestre Ahn MD> 04/13/20 [address] [facility] Work Phone: [phone]) 530-837306-01-2020 Progress note Author Fabiola Marinelli [facility] April 02, 2020 8:51pmNote Date/TimeJun2019 1:44pmP[facility] [place] [address] Hem/Onc Follow Up Note - OP Signed Patient: Mojgan Pérez MR#: [id number] : 1955 Acct:[id number] Age/Sex: 64 / F Type: REG RCR Copies to: MD Yinka Downey MD~ Subjective Date/Time of Service: Date of Service: 04/02/2020 Time of Service: 13:44 Chief Complaint: Patient is here for follow up to consent for treatment after tumor board and port placement on March 22 in [place]. HPI: 04/02/2020: Mojgan presents after infusion port placement at [facility] by interventional radiologydue to platelet count 40,000--she [...] (for liver dysfunction) 0.7mg/m2 D1,D4,D8, D11, and Bvryfrsjcxgpu74yx IV weekly--repeat for every 3 week cycles [...] her case with Dr. Piter Benavidez at [facility] malignant hematology for optimal regimen. The [...] request prior liver biopsy and records from [facility] liver clinic. The patient and her son (by telephone) expressed understanding and will follow- up as directed in 2 weeks for consent and likely start of therapy. This is a 64-year-old lady on chronic disability has a history of arthritis, diabetes mellitus, hypertension, COPD, GERD, and fibromyalgia who was previously followed by [facility] in [place] for chronic mild to moderate thrombocytopenia. She states that she was followed with Dr. Kumari prior to his senior living and was told that she had an [...] The treatments were given with AP/PA vaz ounlrhtuv80 MV photons and MLC blocks. 3. Deferred [...] nonalcoholic steatohepatitis with cirrhosis, previously followed by [facility] gastroenterology. Cardiovascular: No Chest Pain, No [...] Social History Comments: [facility] Home Medications & Allergies Allergies [...] [facility]. Her persistent thrombocytopenia made her ineligible [...] the patient in hematology tumor board at [facility]. --Infusion port placed 03/22/2020 at [facility] due to low platelets. No complications. --03/12/2020: [...] prophylaxis. --We requested prior liver biopsy from [facility] for review of the extentof her [...] Dr. Benavidez regarding treatment options and coordinated [facility] malignant hematology tumor board presentation--reviewing recommendations today. 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 I previously reviewed her outpatient records from [facility], including review of notes, laboratories, [...] She continues surveillance with liver clinic at [facility] and I will continue to follow her every 6 months, sooner if newbleeding issues arise. --04/02/2020: As noted above we reviewed informed consent for Daratumumab/Velcade/Dexamethasone for active myeloma therapy. I requested priorliver biopsy results and notes from liver clinic at [facility]. Platelet count now is 40,000 but [...] infiltration that may further impairher liver function. [facility] hepatology discussed liver transplant but sheis likely no longer a candidate for this given active myeloma. We will discuss least hepatotoxic regimen for treatment of her active myeloma. --Requesting prior liver biopsy and [facility] liver clinic records. (4) Neutropenia, unspecified Qualifiers: [...] for coordination of care (as documented) and sngk-gk-jbaf counseling of patient and/or family. Dictated By: Fabiola Marinelli MD DD/ 1344 Signed By: <Electronically signed by MD Fabiola Marinelli> 04/02/2020[address] [facility] Work Phone: [phone]) 200-104705-04-2020 Progress note Author Fabiola Marinelli [facility] March 05, 2020 9:14pmNote Date/TimeMay 2019 12:04pmP[facility] [place] [address] Hem/Onc Follow Up Note - OP Signed Patient: Mojgan Pérez MR#: [id number] : 1955 Acct:[id number] Age/Sex: 64 / F Type: REG RCR [...] her case with Dr. Piter Benavidez at [facility] malignant hematology for optimal regimen. The [...] request prior liver biopsy and records from [facility] liver clinic. The patient and her son (by telephone) expressed understanding and will follow- up as directed in 2 weeks for consent and likely start of therapy. This is a 64-year-old lady on chronic disability has a history of arthritis, diabetes mellitus, hypertension, COPD, GERD, and fibromyalgia who [facility] mild to moderate [facility]ocytopenia. She states that she was followed with Dr. Kumari prior to his senior living and was told that she had an [...] The treatments were given with AP/PA vaz [id number] MV photons and MLC blocks. 3. Deferred [...] I am obtaining her priorliver biopsy from [facility] for review as well as presenting [...] nonalcoholic steatohepatitis with cirrhosis, previously followed by [facility] gastroenterology. Cardiovascular: No Chest Pain, No [...] (15% plasma cells by bone marrow biopsy 03/31/2017--[facility] review of this specimen notes 10% plasma cell involvement). She has high risk cytogenetics and I sent her for consultation with Dr. Piter Benavidez at [facility] in 2017. Her persistent thrombocytopenia made her [...] the patient in hematology tumor board at [facility]. Options include weekly dexamethasone 20 mg orally [...] We will obtain prior liver biopsy from [facility] for review of the extent of her known liver dysfunction. It is doubtful she will be a transplant candidate given her history of cirrhosis and chronic cytopenias. --Due to poor venous access we will refer for infusion port placement and I willfollow-up with her in approximately 2 weeks to discuss the recommendations of Dr. Ann and [facility] malignant hematology tumor board. We will commence [...] Dr. Benavidez regarding treatment options and coordinated [facility] malignant hematology tumor board presentation 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 64-year-old female who has had chronic mild to moderate thrombocytopenia that was previously treated with transfusion for which she had an adverse reaction consisting of throat tightness. I previously reviewed her outpatient records from [facility], including review of notes, laboratories, [...] She continues surveillance with liver clinic at [facility] and I will continue to follow her every 6 months, sooner if newbleeding issues arise. --03/05/2020: As noted above we have been discussing potential regimens for activemyeloma therapy. I am requesting prior liver biopsy results and notes from liver clinic at [facility]. Platelet count now is 45,000 but patient has had no active bleeding. Although we had previously determined that her thrombocytopenia was secondary to sequestration, it could also be due to active myeloma and wewill have to observe closely with myelosuppressive therapy for myeloma. I will update the [facility] liver clinic to our plans for therapy. 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 [facility] attempt weight reduction through diet and exercise that may prevent further fatty infiltration that may further impairher liver function. [facility] hepatology discussed liver transplant but sheis likely no longer a candidate for this given active myeloma. We will discuss least hepatotoxic regimen for treatment of her active myeloma. --Requesting prior liver biopsy and [facility] liver clinic records prior to initiating therapy. [...] for coordination of care (as documented) and xctx-yq-modq counseling of patient and/or family. Dictated By: Fabiola Marinelli MD DD/ 1204 Signed By: <Electronically signed by MD Fabiola Marinelli> 03/05/20 [address] [facility] Work Phone: 1(113) 380-540104-03-2020 Progress note Author Silvestre Ahn [facility] February 03, 2020 4:28pmNote Date/TimeApr2019 4:19pmP[facility] [place] [address] Rad Onc Follow Up Note - OP Signed Patient: Mojgan Pérez MR#: [id number] : 1955 Acct:[id number] Age/Sex: 64 / F Type: REG RCR Copies to: MD Yinka Downey MD~ Subjective - Service Date/Time Date: 04/03/20 Time: 11:50 - Diagnosis Multiple myeloma - [...] & Chem 7: 01/26/20 11:03 12/20/19 11:21 Hvap-2-Zjvyawagpgvtt 1.9 mg/L (0.6-2.4) 12/07/18 16:14 Hhwbz-1-Wvwroaxon 0.3 g/dL (0.0-0.4) 12/20/19 11:21 Xypex-6-Dppqcmtjw 0.6 g/dL (0.4-1.0) 12/20/19 11:21 Beta Globulins [...] signed by Silvestre Ahn MD> 02/03/20 [address] [facility] Work Phone: 1([phone]) [phone] Progress note Author Fabiola Marinelli [facility] February 03, 2020 4:01pmNote Date/TimeApril 2019 10:43[facility] [place] [address] Hem/Onc Follow Up Note - OP Signed Patient: Mojgan Pérez MR#: [id number] : 1955 Acct:[id number] Age/Sex: 64 / F Type: REG RCR [...] her case with Dr. Piter Benavidez at [facility] malignant hematology for optimal regimen. The [...] GERD, and fibromyalgia who [facility] mild to moderate thrombocytopenia. She states that she was followed with Dr. Kumari prior to his senior living and was told that she had an [...] (15% plasma cells by bone marrow biopsy 03/31/2017--[facility] review of this specimen notes 10% plasma cell involvement). She has high risk cytogenetics and I sent her for consultation with Dr. Piter Benavidez at [facility] in 2017. Her persistent thrombocytopenia made her [...] course of radiation to minimize exposures during COVID-19 epidemic. --The [...] the patient in hematology tumor board at [facility]. She has baseline cirrhosis with chronic thrombocytopenia and I am attempting to treat her with the least myelosuppressive regimen, with deferral of therapy due to COVID-19 epidemic. Patient does not have any current [...] I previously reviewed her outpatient records from [facility], including review of notes, laboratories, and [...] She continues surveillance with liver clinic at [facility] and I will continue to follow [...] infiltration that may further impairher liver function. [facility] hepatology discussed liver transplant but sheis [...] for coordination of care (as documented) and nfxq-by-achu counseling of patient and/or family. Dictated By: Fabiola Marinelli MD DD/ 1043 Signed By: <Electronically signed by MD Fabiola Marinelli> 02/03/20 [address] [facility] Work Phone: 1([phone]) [phone] Consult note Author Silvestre Ahn [facility] January 26, 2020 5:29pmNote Date/TimeMar2019 4:55pmP[facility] [place] [address] Rad Onc Consult Note - OP Signed Patient: Mojgan Pérez MR#: [id number] : 1955 Acct:[id number] Age/Sex: 64 / F Type: REG RCR [...] bone marrow biopsy today by Dr. Cummings. [facility] - Medical History Medical History: Medical [...] Type: None Social History Comments: lives in [place] with son and granddaughter Home Medications & [...] & Chem 7: 01/26/20 11:03 12/20/19 11:21 Hjrg-9-Sreyqzuiaekbk 1.9 mg/L (0.6-2.4) 12/07/18 16:14 Bevll-1-Kuegerkxs 0.3 g/dL (0.0-0.4) 12/20/19 11:21 Usvdo-2-Nfxqembeg 0.6 g/dL (0.4-1.0) 12/20/19 11:21 Beta Globulins [...] any. Dictated By: Silvestre Ahn MD DD/ 54 Signed By: <Electronically signed by Silvestre Ahn MD> 01/26/20 [address] [facility] Work Phone: 1(753) 934-263503-26-2020 Progress note Author Abel Cummings [facility] January 26, 2020 11:53amNote Date/TimeMarch 2019 11:51amP[facility] [place] [address] Hem/Onc Follow Up Note - OP Signed Patient: Mojgan Pérez MR#: [id number] : 1955 Acct:[id number] Age/Sex: 64 / F Type: REG RCR [...] & no additional complaints except as documented [facility] - Medical History Medical History: Medical [...] Type: None Social History Comments: lives in [facility] with son and granddaughter Home [...] % (Auto) 30.3, Lymph % (Auto) 55.7, [place]isco[place] % (Auto) 9.1, Eos % (Auto) 4.6, Baso % (Auto) 0.3, Neut # (Auto) 1.0 L, Lymph # (Auto) 1.9, [place]isco[place] # (Auto) 0.3, Eos # (Auto) 0.2, [...] for coordination of care (as documented) and sxeg-fw-yqhw counseling of patient and/or family. Dictated By: Abel Cummings MD DD/ 1149 Signed By: <Electronically signed by MD Abel Cummings> 01/26/20 [address] [facility] Work Phone: 1([phone] 275-342403-26-2020 [facility]2020 Procedure note [facility] 01-26-2020 [facility]26-2020 [facility]-2020 [facility]-2020 [facility] 01-26-2020 [facility]-26-2020 [facility]03-26-2020 [facility]-02-2020 Progress note Author Fabiola Marinelli [facility] January 02, 2020 3:53pmNote Date/TimeFebruary 2019 11:11a[facility] [place] [address] Hem/Onc Follow Up Note - OP Signed with Addenda Patient: Mojgan Pérez MR#: [id number] : 1955 Acct:[id number] Age/Sex: 64 / F Type: REG RCR [...] (15% plasma cells by bone marrowbiopsy 05/2017). Wes she was seen at liver clinic and [...] understanding of this counseling. Previously seen at [facility]--noted to have ascending aortic aneurysm (this was [...] worsening of known cirrhosis. Her physician at [facility] requested second pathology review there of bone [...] GERD, and fibromyalgia [facility]. She states that she was followed with Dr. Kumari prior to his senior living and was told that she had an [...] Type: None Social History Comments: lives in [facility] with son and granddaughter Home [...] 20.1, U Random Total Protein 34.4, U Uqivn-3-Ipiknvpy (%) 2.5, U Random g-0-Hdmsmyxi % 7.5, U Random b-Globulin % 19.2, U Random Gamma Glob % 50.7, U Random M-Jaspal (%) 43.1 H, Urine Random PEP Note , Urine Immunofixation 12/20/19 11:21: Serum Total Protein 6.1, Albumin (Send Out) 3.1, Globulin (PEP) 3.0, Albumin/Globulin (PEP) 1.0, Czgei-7-Pbwopqmbb 0.3, Bylvl-1-Vbtvdzusw 0.6, Beta Globulins 1.0, Gamma Globulins 1.1,M-Jaspal Not observed, PEP Note , IgG 1171, IgA 272, IgM 52, Serum Immunofixation , Free [place] LC, Quant 23.6 H, Free Lambda LC, Quant 479.4 H, Free [place]/Lambda Ratio 0.05 L - Impressions Date of [...] (15% plasma cells by bone marrow biopsy 03/31/2017--[facility] review of this specimen notes 10% plasma cell involvement). She has high risk cytogenetics and I sent her for consultation with Dr. Piter Benavidez at [facility] in 2016. Her persistent thrombocytopenia made her [...] I previously reviewed her outpatient records from [facility] [place], including review of notes, laboratories, and [...] She continues surveillance with liver clinic at [facility] and I will continue to follow [...] infiltration that may further impairher liver function. [facility] hepatology discussed liver transplant but currently [...] for coordination of care (as documented) and qhpb-en-rqyv counseling of patient and/or family. Dictated By: Fabiola Marinelli MD DD/ 1110 Signed By: <Electronically signed by MD Fabiola Marinelli> 12/28/19 [address] [facility] Work Phone: 1(135) 504-736211-10-2019 Progress note Author Vicente Linton [facility] January 29, 2023 6:23pmNote Date/TimeMarch 2022 2:45[place] [address] Hospitalist Progress Note Signed with Addenda Patient: Mojgan Pérez MR#: [id number] : 1955 Acct:[id number] Age/Sex: 67 / F Adm Date: 3 Loc: Room: [address] [place] [address] Type: DIS IN Attending Dr: Vicente Linton [...] BID WALLACE Administration Phenazopyridine HCl 200 mg 03/29/23 05:52 Phenazopyridine 100 Mg Tablet PO TID [...] 1441 Signed By: <Electronically signed by Vicente Linton DO> 01/28/23 14[address] [facility] Work Phone: 1(931) 942-879508-26-2019 Progress note Author Fabiola Marinelli [facility] June 27, 2019 7:18pmNote Date/TimeAugust 2018 11:24[facility] [place] [id number] Hem/Onc Follow Up Note - OP Signed Patient: Mojgan Pérez MR#: [id number] : 1955 Acct:[id number] Age/Sex: 63 / F Type: REG RCR [...] cells by bone marrowbiopsy 05/2017). Seen at [facility]--noted to have ascending aortic aneurysm (this was [...] worsening of known cirrhosis. Her physician at [facility] requested second pathology review there of bone [...] GERD, and fibromyalgia who [facility] mild to moderate thrombocytopenia. She states that she was followed with Dr. Kumari prior to his senior living and was told that she had an [...] marrow biopsy from 03/31/2017 was requested by [facility] for second review. Outside pathology report [...] (15% plasma cells by bone marrow biopsy 03/31/2017--[facility] review of this specimen notes 10% plasma cell involvement). She has high risk cytogenetics and I sent her for consultation with Dr. Piter Benavidez at [facility] in 2017. Her persistent thrombocytopenia made her [...] I previously reviewed her outpatient records from [facility] [place], including review of notes, laboratories, and [...] for coordination of care (as documented) and qogs-do-kugg counseling of patient and/or family. Dictated By: Fabiola Marinelli MD DD/ 1123 Signed By: <Electronically signed by MD Fabiola Marinelli> 06/27/19 8743 [facility] Work Phone: 1(435) 596-117002-25-2019 Progress note Author Fabiola Marinelli [facility] December 27, 2018 8:40pmNote Date/TimeFebruary 2018 11:02[facility] [place] [id number] Hem/Onc Follow Up Note - OP Signed Patient: Mojgan Pérez MR#: [id number] : 1955 Acct:[id number] Age/Sex: 63 / F Type: REG RCR [...] thrombocytopenia with mild leukopenia. Previously followed at [facility] by Dr. Kumari then Dr. Cummings at [facility]. Prior angioedema with throat tightening after platelet transfusion about6-12 months ago. Requested second opinion regarding her cytopenias 11/06/2016. 2. Mild leukopenia with relative neutropenia without infections. Unremarkable white blood cell precursor morphology on bone marrow aspiration biopsy 03/31/2017. 3. I reviewed outside notes from 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 She states that she was followed with Dr. Kumari prior to his senior living and was told that she had an [...] Urine Protein <6, Urine Creat 37.2, Free [place] 21.6, Free Lambda 257.8, K/LRatio 0.08 - Impressions Any impression(s) listed above is documentation that was entered by the reading physician into a diagnostic report(s) for Mojgan Pérez. I have reviewed the report(s) and am [...] her for consultationwith Dr. Piter [facility]z at [facility]. Her persistent thrombocytopenia made her ineligible for [...] I previously reviewed her outpatient records from [facility] [place], including review of notes, laboratories, and [...] for coordination of care (as documented) and cdvz-fs-nfdp counseling of patient and/or family. Dictated By: Fabiola Marinelli MD DD/ 1101 Signed By: <Electronically signed by MD Fabiola Marinelli> 12/27/183 [facility] Work Phone: 1(711) 381-847607-25-2018 Progress note Author Fabiola Marinelli [facility] May 26, 2018 6:52amNote Date/TimeJuly 2017 1:25pmP[facility] [address] [place] [address] Hem/Onc Follow Up Note - OP Signed Patient: Mojgan Pérez MR#: [id number] : 1955 Acct:[id number] Age/Sex: 62 / F Type: REG RCR [...] thrombocytopenia with mild leukopenia. Previously followed at [facility] by Dr. Kumari then Dr. Cummings at [facility]. Prior angioedema with throat tightening after platelet transfusion about6-12 months ago. Requested second opinion regarding her cytopenias 11/06/2016. 2. Mild leukopenia with relative neutropenia without infections. Unremarkable white blood cell precursor morphology on bone marrow aspiration biopsy 03/31/2017. 3. I reviewed outside notes from 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 She states that she was followed with Dr. Kumari prior to his senior living and was told that she had an [...] % (Auto) 51.9 % (.) 05/13/18 10:11 Briscoe % (Auto) 7.9 % (.) 05/13/18 10:11 Eos % (Auto) 3.1 % (.) 05/13/18 10:11 Baso % (Auto) 0.3 % (.) 05/13/18 10:11 Neut # (Auto) 1.0 x10E3/uL (1.8-7.7) L 05/13/18 10:11 Lymph # (Auto) 1.4 x10E3/uL (1.00-4.8) 05/13/18 10:11 Briscoe # (Auto) 0.2 x10E3/uL (0.0-0.8) 05/13/18 10:11 [...] 13:40 Albumin/Globulin (PEP) 1.1 (0.7-1.7) 05/11/18 13:40 Uussi-2-Pldzyrfgl 0.3 g/dL (0.0-0.4) 05/11/18 13:40 Dkpjc-8-Auerxnmtm 0.6 g/dL (0.4-1.0) 05/11/18 13:40 Beta Globulins [...] 19.3 mg/dL (Not Estab.) 05/11/18 13:42 U Gznxp-9-Lxhyylzw (%) 2.1 % (.) 05/11/18 13:42 U Random y-5-Stbdjdwk % 7.2 % (.) 05/11/18 13:42 U [...] 13:40 Urine Immunofixation (.) 05/11/18 13:42 Free [place] LC, Quant 22.0 mg/L (3.3-19.4) H 05/11/18 13:40 Free Lambda LC, Quant 224.9 mg/L (5.7-26.3) H 05/11/18 13:40 Free [place]/Lambda Ratio 0.10 (0.26-1.65) L 05/11/18 13:40 - [...] her for consultationwith Dr. Piter Benavidez at [facility]. Her persistent thrombocytopenia made her ineligible for [...] tightness. I reviewed her outpatient records from [facility], including review of notes, laboratories,and prior bone [...] for coordination of care (as documented) and hxxe-cj-fsao counseling of patient and/or family. 25 - 35 minutes Dictated By: Fabiola Marinelli MD DD/ 1325 Signed By: <Electronically signed by Fabiola Marinelli MD> 05/26/18 0[address] [facility] Work Phone: 1(332) [phone] Progress note Author Fabiola Marinelli [facility] November 24, 2017 9:11pmNote Date/TimeJan2017 1:57pmP[facility] [place] [address] Hem/Onc Follow Up Note - OP Signed Patient: Mojgan Pérez MR#: [id number] : 1955 Acct:[id number] Age/Sex: 62 / F Type: REG RCR [...] thrombocytopenia with mild leukopenia. Previously followed at [facility] by Dr. Kumari then Dr. Cummings at [facility]. Prior angioedema with throat tightening after platelet transfusion about6-12 months ago. Requested second opinion regarding her cytopenias 11/06/2016. 2. Mild leukopenia with relative neutropenia without infections. Unremarkable white blood cell precursor morphology on bone marrow aspiration biopsy 03/31/2017. 3. I reviewed outside notes from 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 She states that she was followed with Dr. Kumari prior to his senior living and was told that she had an [...] % (Auto) 52.9 % (.) 11/16/17 10:06 Briscoe % (Auto) 6.5 % (.) 11/16/17 10:06 Eos % (Auto) 5.0 % (.) 11/16/17 10:06 Baso % (Auto) 0.2 % (.) 11/16/17 10:06 Neut # (Auto) 1.3 x10E3/uL (1.8-7.7) L 11/16/17 10:06 Lymph # (Auto) 1.9 x10E3/uL (1.00-4.8) 11/16/17 10:06 Briscoe # (Auto) 0.2 x10E3/uL (0.0-0.8) 11/16/17 10:06 [...] 09:55 Albumin/Globulin (PEP) 1.0 (0.7-1.7) 11/16/17 10:06 Dkexj-2-Hdbgvokym 0.3 g/dL (0.0-0.4) 11/16/17 10:06 Kvbjr-1-Aymffpatl 0.6 g/dL (0.4-1.0) 11/16/17 10:06 Beta Globulins [...] 7.9 mg/dL (Not Estab.) 11/16/17 10:06 U Jhowo-1-Qdszbhth (%) 4.8 % (.) 11/16/17 10:06 U Random z-2-Xzrebadi % 9.0 % (.) 11/16/17 10:06 U Random b-Globulin % 36.5 % (.) 11/16/17 10:06 U Random Gamma Glob % 16.1 % (.) 11/16/17 10:06 U Random M-Jaspal (%) 7.4 % (Not Observed) H 11/16/17 10:06 Urine Random PEP Note (.) 11/16/17 10:06 IgG 1201 mg/dL (700-1600) 11/16/17 10:06 IgA 378 mg/dL (87-352) H 11/16/17 10:06 IgM 90 mg/dL (26-217) 11/16/17 10:06 Free [place] LC, Quant 30.1 mg/L (3.3-19.4) H 11/16/17 10:06 Free Lambda LC, Quant 222.8 mg/L (5.7-26.3) H 11/16/17 10:06 Free [place]/Lambda Ratio 0.14 (0.26-1.65) L 11/16/17 10:06 - [...] UNREMARKABLE FDG PET IMAGING CPT Code 1: 73303 ICD-10 : C90.0 Transcribed By: GIOVANNA 11/17/17 [...] her for consultationwith Dr. Piter Benavidez at [facility]. Her persistent thrombocytopenia made her ineligible for [...] tightness. I reviewed her outpatient records from [facility] [facility], including review of notes, laboratories,and prior bone [...] for coordination of care (as documented) and uutn-eo-mikv counseling of patient and/or family. 25 - 35 minutes Dictated By: Fabiola Marinelli MD DD/ 1356 Signed By: <Electronically signed by MD Fabiola Marinelli> 11/24/17 [facility] Work Phone: Consult note Author Fabiola Marinelli [facility] January 28, 2023 3:19pmNote Date/TimeMarch 2022 9:58[place] [address] Hem/Onc Consult Note - IP Signed with Addenda Patient: Mojgan Pérez MR#: [id number] : 1955 Acct:[id number] Age/Sex: 67 / F Adm Date: 3 Loc: Room: [address] [place] [address] Type: ADM IN Attending Dr: Vicente Linton DO Copies to: MD Yinka Downey MD Mary K Demboske, KEITH Linton, DO~ ADDENDUM1 I personally interviewed and examined patient and agree with assessment by TONYA Gallagher below. Addendum Documented By: MD Fabiola Marinelli 01/28/23 1519 Addendum Signed By: <Electronically signed by MD [...] which she would need to receive at [facility]. F/u with me in 2 weeks--if persistent [...] consent and will receive thisas an outpatient. [facility] - Medical History Medical History: Medical History (Last Reviewed 01/28/23 @ 05:43 by Sherif Rvai DO) Aortic aneurysm COPD (chronic obstructive pulmonary [...] % (Auto) 64.8, Lymph % (Auto) 20.4, [place]iscoe % (Auto) 12.3, Eos % (Auto) 2.4, Baso % (Auto) 0.1, Nucleat RBC Rel Count 0.4, Neut # (Auto) 1.9, Lymph # (Auto) 0.6 L, [place] # (Auto) 0.4, Eos # (Auto) 0.1, Baso # (Auto) 0.0, MonocyteDist Width 19.52, Platelet Estimate Decreased, Plt Morphology Comment Normal, RBC Morphology N/A, Poikilocytosis Moderate, Tear Drop Cells Slight, Ovalocytes Moderate 01/28/23 00:29: Urine Color Dark yellow A, Urine Appearance Turbid A, Urine pH 5.5, Ur Specific [place] 1.023, Urine Protein >=1000 H, Urine Glucose [...] for coordination of care (as documented) and nuku-ul-ahzb counseling of patient and/or family. Documented By: Shannon Gallagher APRN 01/28/23 09 57 Signed By: <Electronically signed by KEITH Shannon Hayden Elliott> 01/28/23 1413 <Electronically signed by MD Fabiola Marinelli> 01/28/23 1456 [facility] Work Phone: Discharge summary Author Vicente Linton [facility] January 29, 2023 6:22pmNote Date/TimeMar2022 6:22pm[place] [address] Discharge Summary Signed Patient: Mojgan Pérez MR#: [id number] : 1955 Acct:[id number] Age/Sex: 67 / F Adm Date: 3 Loc: Room: [address] [place] [address]: Vicente Linton DO Copies to: [...] 67-year-old woman who admitted to hospital the clinical allergist of January 28 with a chief complaint [...] % (Auto) 53.7, Lymph % (Auto) 30.8, [place] % (Auto) 11.4, Eos % (Auto) 3.9, Baso % (Auto) 0.2, Nucleat RBC Rel Count 0.5, Neut # (Auto) 0.8 L, Lymph # (Auto) 0.5 L, [place] # (Auto) 0.2, Eos # (Auto) 0.1, [...] Pen Injector 1 mg SUBCUT QWEEK vitamin N24-tybrk acid 0.5-1 mg Tablet 1 tab PO [...] to chemotherapy schedule fluticasone propionate 50 mcg/actuation Paulina,Suspension 1 spray INTRANASAL DAILY PRN (Reason: Allergy [...] 11:45 am Documented By: Vicente Linton DO 01/29/231815 Signed By: <Electronically signed by Vicente Linton, > 01/29/23 1822 [facility] Work Phone: Evaluation + Plan note Future Appointments Appointment Date:06/30/2025 03:00:00 PM Scheduled Provider: Location:[facility] Appointment Type:Urology CALL PAT FT Appointment Date:07/04/2025 01:45:00 PM Scheduled Provider: Location:[facility] Appointment Type:Urology FT [facility] evaluation note* Diagnosis Onset Date Resolution Status Acute right hip pain acuteHematuriaacuteAcute thoracic back painchronicCancer-related painchronic Degenerative cervical spinal stenosischronicDiabetes mellituschronicEncounter for antineoplastic immunotherapychronicFibromyalgiachronicHistory of 2018 novel coronavirus disease (COVID-19)chronicIron deficiencychronicLiver cirrhosis secondary to KAPADIA (nonalcoholic steatohepatitis)chronicMultiple myelomachronic Neutropenia, unspecifiedchronicObesitychronicSmoldering multiple myeloma (SMM) chronicThrombocytopenia due to sequestrationchronic [facility] Work Phone: evaluation note* Diagnosis Onset Date Resolution Status Acute right hip pain acuteHematuriaacuteAcute thoracic back painchronicCancer-related painchronic Degenerative cervical spinal stenosischronicDiabetes mellituschronicEncounter for antineoplastic immunotherapychronicEncounter for chemotherapy management chronicFibromyalgiachronicHistory of 2018 novel coronavirus disease (COVID-19) chronicIron deficiencychronicLiver cirrhosis secondary to KAPADIA (nonalcoholic steatohepatitis)chronicMultiple myelomachronicNeutropenia, unspecifiedchronic ObesitychronicSmoldering multiple myeloma (SMM)chronicThrombocytopenia due to sequestrationchronic [facility] Work Phone: Evaluation note* Diagnosis Obesity, Class III, BMI >= 40- Primary Morbid obesity Multiple myeloma, remission status unspecified (HCC) Mild dilation of ascending aorta (HCC) Thoracic aortic ectasia [facility] Diagnosis Onset Date Resolution Status Acute right hip pain acuteChemotherapy-induced neutropeniaacuteHematuriaacuteAcute thoracic back pain chronicCancer-related painchronicDegenerative cervical spinal stenosischronic Diabetes mellituschronicEncounter for antineoplastic immunotherapychronic Encounter for chemotherapy managementchronicFibromyalgiachronicHistory of 2019 novel coronavirus disease (COVID-19)chronicIron deficiencychronicLiver cirrhosis secondary to KAPADIA (nonalcoholic steatohepatitis)chronicMultiple myelomachronic Neutropenia, unspecifiedchronicObesitychronicSmoldering multiple myeloma (SMM) chronicThrombocytopenia due to sequestrationchronic [facility] Work Phone: Evaluation note* Diagnosis Onset Date Resolution Status Acute right hip pain acuteFrontal sinusitisacuteHematuriaacuteAcute thoracic back painchronicCancer- related painchronicChemotherapy-induced neutropeniachronicDegenerative cervical spinal stenosischronicDiabetes mellituschronicEncounter for antineoplastic immunotherapychronicEncounter for chemotherapy managementchronicFibromyalgia chronicHistory of 2019 novel coronavirus disease (COVID-19)chronicIron deficiencychronicLiver cirrhosis secondary to KAPADIA (nonalcoholic steatohepatitis)chronicMultiple myelomachronicNeutropenia, unspecifiedchronic ObesitychronicSmoldering multiple myeloma (SMM)chronicThrombocytopenia due to sequestrationchronic [facility] Work Phone: Evaluation note* Diagnosis Onset Date Resolution Status Acute right hip pain acuteHematuriaacuteAcute thoracic back painchronicCancer-related painchronic Chemotherapy-induced neutropeniachronicDegenerative cervical spinal stenosis chronicDiabetes mellituschronicEncounter for antineoplastic immunotherapychronic Encounter for chemotherapy managementchronicFibromyalgiachronicFrontal sinusitis chronicHistory of 2019 novel coronavirus disease (COVID-19)chronicIron deficiencychronicLiver cirrhosis secondary to KAPADIA (nonalcoholic steatohepatitis)chronicMultiple myelomachronicNeutropenia, unspecifiedchronic ObesitychronicSmoldering multiple myeloma (SMM)chronicThrombocytopenia due to sequestrationchronic [facility] Work Phone: Evaluation note* Diagnosis [...] cirrhosis secondary to KAPADIA (nonalcoholic steatohepatitis)chronicMultiple myelomachronic [facility] Work Phone: Evaluation note* Diagnosis [...] KAPADIA (nonalcoholic steatohepatitis)chronicMultiple myelomachronicThrombocytopenia due to sequestrationchronic [facility] Work Phone: Evaluation note* Diagnosis [...] multiple myeloma (SMM) chronicThrombocytopenia due to sequestrationchronicFrontal sinusitisSamaritan Hospital Work Phone: Evaluation note* Diagnosis Onset Date Resolution Status Hematuria acuteHypogammaglobulinemiaacuteImmunosuppressionacutePancytopeniaacuteUTI (urinary tract infection)acuteDiabetes mellituschronicFibromyalgiachronicLiver cirrhosis secondary to KAPADIA (nonalcoholic steatohepatitis)chronicMultiple myelomachronicThrombocytopenia due to sequestrationchronicMultiple myeloma chronicAcute right hip painacuteHematuriaacuteAcute thoracic back painchronic Cancer-related painchronicChemotherapy-induced neutropeniachronicDegenerative cervical spinal stenosischronicDiabetes mellituschronicEncounter for antineoplastic immunotherapychronicEncounter for chemotherapy managementchronic FibromyalgiachronicHistory of 2019 novel coronavirus disease (COVID-19)chronic Iron deficiencychronicLiver cirrhosis secondary to KAPADIA (nonalcoholic steatohepatitis)chronicMultiple myelomachronicNeutropenia, unspecifiedchronic ObesitychronicSmoldering multiple myeloma (SMM)chronicThrombocytopenia due to sequestrationchronicFrontal sinusitisSamaritan Hospital Work Phone: Evaluation note* Diagnosis Onset [...] unspecifiedchronicObesitychronicSmoldering multiple myeloma (SMM)chronicThrombocytopenia due to sequestrationchronicFrontal sinusitisAccess [facility] Work [facility]: Evaluation note* Diagnosis Onset [...] unspecifiedchronicObesitychronicSmoldering multiple myeloma (SMM)chronicThrombocytopenia due to sequestrationchronicFrontal sinusitisSamaritan Hospital Work Phone: Evaluation note* Diagnosis Onset [...] ObesitychronicSmoldering multiple myeloma (SMM)chronicThrombocytopenia due to sequestrationchronicFrontal sinusitisAccess [facility] Work Phone: Evaluation note* Diagnosis Multiple myeloma, [...] idiopathic peripheral neuropathy documented in this encounter [facility] Work Phone: Evaluation note* Diagnosis 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)- Primary Multiple myeloma, in relapse Immunosuppressed status (CMS/HCC) Pancytopenia (CMS/HCC) documented in this encounter [facility] Work Phone: Evaluation note* Diagnosis Multiple myeloma not having achieved remission (CMS/HCC)- Primary Pancytopenia (CMS/HCC) Immunosuppressed status (CMS/HCC) Multiple myeloma, remission status unspecified (CMS/HCC) documented in this encounter [facility] Work Phone: Evaluation note* Diagnosis Multiple myeloma, remission status unspecified (CMS/HCC) documented in this encounter [facility] Work Phone: Evaluation noteNo [employer] Other Evaluation note* Diagnosis Multiple myeloma not having achieved remission (CMS/HCC) documented in this encounter [facility] Work Phone: Evaluation note* Diagnosis Onset [...] unspecifiedchronicObesitychronicSmoldering multiple myeloma (SMM)chronicThrombocytopenia due to sequestrationchronicFrontal sinusitisresKnox Community Hospital Work Phone: Evaluation note* Diagnosis Multiple myeloma not having achieved remission (CMS/HCC)- Primary Immunosuppressed status (CMS/HCC) documented in this encounter [facility] Work Phone: Evaluation note* Diagnosis Multiple myeloma not having achieved remission (CMS/HCC)- Primary Multiple myeloma, remission status unspecified (CMS/HCC) Depression, unspecified depression type documented in this encounter [facility] Work Phone: Evaluation note* Diagnosis Immunodeficiency disorder (CMS/HCC)- Primary Unspecified immunity deficiency Multiple myeloma not having achieved remission (CMS/HCC) Liver cirrhosis secondary to KAPADIA (nonalcoholic steatohepatitis) (CMS/HCC) Thrombocytopenia (CMS/HCC) Unspecified thrombocytopenia documented in this encounter [facility] Work Phone: Evaluation note* Diagnosis Liver cirrhosis secondary to KAPADIA (nonalcoholic steatohepatitis) (CMS/HCC)- Primary Multiple myeloma not having achieved remission (CMS/HCC) Immunodeficiency disorder (CMS/HCC) Unspecified immunity deficiency documented in this encounter [facility] Work Phone: Evaluation note* Diagnosis Liver cirrhosis secondary to KAPADIA (nonalcoholic steatohepatitis) (CMS/HCC)- Primary Immunodeficiency disorder (CMS/HCC) Unspecified immunity deficiency 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 Depression, unspecified depression type documented in this encounter [facility] Work Phone: Evaluation note* Diagnosis Multiple myeloma not having achieved remission (CMS/HCC) documented in this encounter [facility] Work Phone: Evaluation note* Diagnosis Multiple [...] due to drugs documented in this encounter [facility] Work Phone: Evaluation note* Diagnosis Multiple myeloma not having achieved remission (Multi) documented in this encounter [facility] Work Phone: Evaluation note* Diagnosis Multiple myeloma not having achieved remission (Multi) documented in this encounter [facility] Work Phone: Evaluation note* Diagnosis Onset [...] (nonalcoholic steatohepatitis)chronicHemorrhoidsacuteLiver cirrhosis secondary to KAPADIA (nonalcoholic steatohepatitis)[facility] Work Phone: Evaluation note* Diagnosis Onset [...] of COVID-19acuteHistory of tobacco abuseacuteMaxillary sinusitis, chronicacute [facility] Work Phone: Evaluation note* Diagnosis Onset Date [...] of tobacco abuseacuteMaxillary sinusitis, chronicacuteMultiple myelomaacuteCancer-related painchronic [facility] Work Phone: Evaluation note* Diagnosis Onset Date [...] KAPADIA (nonalcoholic steatohepatitis)chronicMultiple myelomachronic Thrombocytopenia due to sequestrationchronic [facility] Work Phone: Evaluation note* Diagnosis Nonrheumatic aortic valve stenosis- Primary Aortic valve disorders Aneurysm of ascending aorta without rupture (HCC) [facility] Onset Date Resolution Status Hemorrhoids [...] KAPADIA (nonalcoholic steatohepatitis)chronicMultiple myelomachronicThrombocytopenia due to sequestrationchronic [facility] Work Phone: Evaluation note* Diagnosis Multiple myeloma [...] achieved remission (Multi) documented in this encounter [facility] Work Phone: Evaluation note* Diagnosis Type 2 diabetes mellitus with other specified complication, without long-term current use of insulin (CMS/HCC)- Primary Gastroesophageal reflux disease without esophagitis Esophageal reflux History of exposure to tuberculosis Chronic cough Cough Class 1 obesity due to excess calories with serious comorbidity and body mass index (BMI) of 33.0 to 33.9 in adult documented in this encounter [facility] HealthcareEvaluation note* Diagnosis Adult general medical examination- Primary Unspecified general medical examination Essential hypertension (CMS/HCC) Unspecified essential hypertension Type 2 diabetes mellitus with other specified complication, unspecified whether snf insulin use (CMS/HCC) Hyperlipidemia, group D (CMS/HCC) Hyperchylomicronemia Vitamin D deficiency Normocytic anemia Unspecified anemia documented in this encounter [facility] HealthcareEvaluation note* Diagnosis Chronic obstructive pulmonary disease, unspecified COPD type (CMS/HCC)- Primary Bleeding hemorrhoids Unspecified hemorrhoids with other complication Multiple myeloma not having achieved remission (CMS/HCC) Liver cirrhosis secondary to KAPADIA (nonalcoholic steatohepatitis) (CMS/HCC) Lymphopenia Lymphocytopenia Thrombocytopenia (CMS/HCC) Unspecified thrombocytopenia documented in [facility] encounter [facility]* Diagnosis Onset Date Resolution Status [...] steatohepatitis)chronicMultiple myelomachronicThrombocytopenia due to sequestrationchronicCancer-related painchronicMultiple myelomachronic [facility] Work Phone: Evaluation note* Diagnosis Multiple myeloma [...] remission (Multi)- Primary documented in this encounter [facility] Work Phone: Evaluation note* Diagnosis Upper respiratory tract infection, unspecified type- Primary documented in this encounter [facility] HealthcareEvaluation note* Diagnosis Bleeding hemorrhoids- Primary Unspecified hemorrhoids with other complication Cough in adult Chronic cough Cough Chronic obstructive pulmonary disease, unspecified COPD type (CMS/HCC) Essential hypertension (CMS/HCC) Unspecified essential hypertension Paroxysmal atrial fibrillation (CMS/HCC) Atrial fibrillation Hypersomnolence Hypersomnia, unspecified documented in this encounter [facility] HealthcareEvaluation note* Diagnosis Multiple myeloma in relapse [...] status unspecified (Multi) documented in this encounter [facility] Work Phone: Evaluation note* Diagnosis Multiple [...] achieved remission (Multi) documented in this encounter [facility] Work Phone: Evaluation note* Diagnosis Multiple [...] secondary to KAPADIA (nonalcoholic steatohepatitis) (Multi) Thrombocytopenia ([facility]-HCC) Unspecified thrombocytopenia Liver cirrhosis secondary to KAPADIA [...] unspecified (Multi)- Primary documented in this encounter [facility] Work Phone: Evaluation note* Diagnosis Type 2 diabetes mellitus with other specified complication, unspecified whether snf insulin use ([facility])- Primary BMI 28.0-28.9,adult Viral upper respiratory tract infection Acute upper respiratory infections of unspecified site Hypertension, unspecified type (CMS/HCC) documented in [facility] encounter [facility]* Diagnosis Herpesviral infection- Primary documented in this encounter [facility] HealthcareEvaluation note* Diagnosis Seasonal allergic rhinitis [...] or rectal pain documented in this encounter [facility] Work Phone: Evaluation note* Diagnosis Multiple [...] of liver, primary documented in this encounter [facility] Work Phone: Evaluation note* Diagnosis Upper respiratory [...] esophagitis Esophageal reflux documented in this encounter [facility] HealthcareEvaluation note* Diagnosis Multiple myeloma in relapse [...] of liver, primary documented in this encounter [facility] Work Phone: Evaluation note* Diagnosis Type 2 diabetes mellitus with other specified complication, without long-term current use of insulin (CMS/HCC) Class 1 obesity due to excess calories with serious comorbidity and body mass index (BMI) of 33.0 to 33.9 in adult documented in this encounter [facility] HealthcareEvaluation note* Diagnosis Liver lesion- Primary Other [...] Unspecified pre-operative examination documented in this encounter [facility] HealthcareEvaluation note* Diagnosis Multiple myeloma in relapse [...] of liver, primary documented in this encounter [facility] Work Phone: Evaluation note* Diagnosis Multiple [...] of liver, primary documented in this encounter [facility] Work Phone: Evaluation note* Diagnosis Multiple [...] of liver, primary documented in this encounter [facility] Work Phone: Evaluation note* Diagnosis Seasonal allergic [...] Hypertension, unspecified type documented in this encounter [facility] HealthcareEvaluation note* Diagnosis Medicare annual wellness visit, subsequent- Primary Chronic obstructive pulmonary disease, unspecified COPD type (HCC) Seasonal allergic rhinitis due to pollen Acute recurrent maxillary sinusitis Acute cystitis without hematuria- Primary Gastroesophageal reflux disease without esophagitis Esophageal reflux Recurrent 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 documented in this encounter [facility] HealthcareEvaluation note* Diagnosis Medicare annual wellness visit, subsequent- Primary Chronic obstructive pulmonary disease, unspecified COPD type (HCC) Seasonal allergic rhinitis due to pollen Acute recurrent maxillary sinusitis Acute cystitis without hematuria- Primary Gastroesophageal reflux disease without esophagitis Esophageal reflux Recurrent candidiasis of vagina Preoperative clearance Unspecified pre-operative examination documented in this encounter [facility] HealthcareEvaluation note* Diagnosis Multiple myeloma in [...] of liver, primary documented in this encounter [facility] Work Phone: Evaluation note* Diagnosis Multiple [...] of liver, primary documented in this encounter [facility] Work Phone: Evaluation note* Diagnosis Medicare annual [...] HealthcareHistory and physical note Author Sherif Ravi [facility] January 28, 2023 5:51amNote Date/TimeMarch 2022 5:45am[address] [address] Hospitalist H&P Signed Patient: Mojgan Pérez MR#: [id number] : 1955 Acct:[id number] Age/Sex: 67 / F Adm Date: 3 Loc: Room: [address] [place] [address] Type: ADM INOo Attending Dr: Sherif Ravi [...] Social History Comments: [facility] Medications and Allergies Allergies erythromycin base [From [...] % (Auto) 20.4 % (.) 01/28/23 01:10 [place] % (Auto) 12.3 % (.) 01/28/23 01:10 Eos % (Auto) 2.4 % (.) 01/28/23 01:10 Baso % (Auto) 0.1 % (.) 01/28/23 01:10 Nucleat RBC Rel Count 0.4 /100 WBC (0-0.5) 01/28/23 01:10 Neut # (Auto) 1.9 x10E3/uL (1.8-7.7) 01/28/23 01:10 Lymph # (Auto) 0.6 x10E3/uL (1.00-4.8) L 01/28/23 01:10 [place]isco[place] # (Auto) 0.4 x10E3/uL (0.0-0.8) 01/28/23 01:10 [...] pH 5.5 (5.0-9.0) 01/28/23 00:29 Ur Specific [place] 1.023 (1.001-1.030) 01/28/23 00:29 Urine Protein >=1000 mg/dL (Negative) H 01/28/23 00:29 Urine Glucose (UA) Normal mg/dL (Normal) 01/28/23 00:29 Urine Ketones Trace (Negative) H 01/28/23 00: Urine Occult Blood 3+ (Negative) H 01/28/23 00: Urine Nitrite Negative (Negative) 01/28/23 00: Urine Bilirubin Negative (Negative) 01/28/23 00: Urine Urobilinogen Normal mg/dL (Normal) 01/28/23 00:29 Ur Leukocyte Esterase 3+ (Negative) H 01/28/23 00: Urine RBC 50-100 /HPF (0-4) H 01/28/23 00: Urine WBC Innumerable /HPF (0-4) H 01/28/23 00:29 Ur Squamous Epith Cells 3-4 /HPF (0-2) H 01/28/23 00: Other Crystals None seen /HPF 01/28/23 00: [...] also has a history of cirrhosis and KAPAIDA. For this reason inpatient status is necessary. She will receive IV Rocephin. She is at highrisk for bacteremia. She will need to be monitored for resolution of hematuria and awaiting the urine culture and sensitivity results. Plan: Admit to the hospital. Inpatient status. Continue IV Rocephin. Check labs daily. Consult hematology/oncology regarding her thrombocytopenia. Documented By: Sherif Ravi DO [id number] Signed By: <Electronically signed by Sherif Ravi, > 01/28/23 0551 [facility] Work Phone: History general Narrative - Reported* Type Description Date Medical History HTN Medical HistoryHyperlipidemiaMedical HistoryFibromyalgiaMedical HistoryDM II Medical HistoryNASHMedical HistoryThrombocytopeniaMedical HistorySmoldering myelomaMedical Historyaneurysm, aorticMedical Historykidney stonesMedical HistoryCOPDMedical HistoryGERDMedical HistoryMULTIPLE MYLOMAMedical HistoryIRON DEF ANEMIASurgical Historycarpal [id number] [id number] Surgical [id number] HistoryBilateral elbow ligament [id number] HistoryBilateral trigger thumb [id number] History Bilateral knee meniscus [id number] HistoryAppendectomySurgical History knee arthroscopySurgical Historybone marrow 02/24/23Hospitalization Historysee above [employer] Other Hospital course Narrative No data available for this section [facility] Hospital Discharge instructionsAmbulatory Orders* Proceed with Treatment Time Frame: 10/15/22, Location: Determined By Patient [facility] Work Phone: Hospital Discharge instructionsAmbulatory Orders* Imaging on Disk Time Frame: 1 Day, Location: Determined By Patient * Send Medical Records to: Time Frame: 1 Day, Location: Determined By Patient [facility] Work Phone: Hospital Discharge instructions Additional Instructions [...] chest pain, increased dyspnea or any other concerns.[facility] Work Phone: Hospital Discharge instructionsAmbulatory Orders* Referral to General Surgery Location: None Selected * Interventional Radiology Time Frame: 11/16/24, Location: None Selected [facility] Work Phone: Hospital Discharge instructions* Attachments The following attachments cannot be sent through Care Everywhere. * Cryoablation of Tumors (Vietnamese) documented in this [facility] Work Phone: Progress note Author Shannon Gallagher [facility] October 15, 2022 11:04amNote Date/TimeDecemb2021 10:48[facility] [place] [address] Hem/Onc Follow Up Note - OP Signed Patient: Mojgan Pérez MR#: [id number] : 1955 Acct:[id number] Age/Sex: 67 / F Type: REG RCR [...] about 3 to 4 weeks, possibly with lead c developer covering at that time. Patient expressed understanding. [...] follow-up as directed. Planning a trip to [place] on March 06, therefore we will hold [...] December 2020 to 60.2 in October 2021. [place] lambda ratio has also started to decline to 0.21 in October 2021. For now I'm continuing her daratumumab with Revlimid at current dosing, but I contacted Dr. Benavidez at [facility] for CAR-T celleligibility. If he has recommendations [...] and myeloma labs (follow quant immunoglobulins and [place]/Lambda light chain ratio with skeletal survey in 2 weeks so results available for appointment). 08/30/2021: Mojgan is here for 2-week follow-up for completion of her palliative radiation therapywith significant improvement of pain in her right hip and pelvis. [facility] [facility] [place] [facility] baseline for possible Kyprolistherapy. This returned with ejection fraction 60% which is normal with grade 1 left ventricular diastolic dysfunction and 1+ tricuspid valve regurgitation and traceto 1+ aortic valve regurgitation. Otherwise unremarkable. I discussed her casewith Dr. Benavidez of malignant hematology at [facility]. He advised against Kyprolis therapy given her [...] spike). Slowly improving IgG to near normal. [place]/lambda light chain ratio normal with mildly increased [...] daughter) for cycle 8, week 2 followup [id number] mg/kg IV weekly, Dexamethasone 20mg weekly, and [...] symptoms--improving thrombocytopenia to 79,000 and improved leukopenia. 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 Still [...] her case with Dr. Piter Benavidez at [facility] malignant hematology for optimal regimen. The [...] request prior liver biopsy and records from [facility] liver clinic. The patient and her son (by telephone) expressed understanding and will follow- up as directed in 2 weeks for consent and likely start of therapy. --04/02/2020: Mojgan presents after infusion port placement at [facility] by interventional radiology due to platelet count [...] (for liver dysfunction) 0.7mg/m2 D1,D4,D8, D11, and [id number] IV weekly--repeat for every 3 week cycles [...] GERD, and fibromyalgia who [facility] [place] [place] for chronic mild to moderate thrombocytopenia. She states that she was followed with Dr. Kumari prior to his senior living and was told that she had an [...] The treatments were given with AP/PA vaz [id number] MV photons and MLC blocks. 3. Deferred [...] % (Auto) 55.1, Lymph % (Auto) 23.7, Briscoe % (Auto) 17.3, Eos % (Auto) 3.6, Baso % (Auto) 0.3, Nucleat RBC Rel Count 0.1,Neut # (Auto) 1.0 L, Lymph # (Auto) 0.4 L, [place] # (Auto) 0.3, Eos # (Auto) 0.1, Baso # (Auto) 0.0, Platelet Estimate Decreased, Plt Morphology Comment Normal, RBC Morphology N/A, Polychromasia Slight, Poikilocytosis Slight, Anisocytosis Slight, Tear Drop Cells Slight Assessment and Plan - TNM Staging Staging: Stage IIIA Multiple Myeloma ([place] criteria) (1) Multiple myeloma Qualifiers: Multiple myeloma [...] [facility] made her ineligible [...] the patient in hematology tumor board at [facility]. --Infusion port placed 03/22/2020 at [facility] due to low platelets. No complications. --03/12/2020: [...] check. She will sign Revlimid consent Thursday. Radhais in agreement with this plan. --09/20/2021: Started daratumumab loading doses weekly with Revlimid on 09/04/2021. Held therapy forANC 900 and platelet 42,000 with sinus infection, now resolved and resumed Revlimid 5mg daily on 09/17. Will continue therapy as prescribed with weekly CBC and hold Revlimid as needed for cytopenias.Evaluation for CAR-T therapy at [facility]. Send myeloma labs and skeletal survey [...] bone marrow biopsy, but this would not change management expert, therefore we will give Pomalyst (now decreasedto [...] immunoglobulins, and kappa/lambda light chains(ok to see PARK MANAGER). --09/17/2022: Mojgan is here for cycle 3 [...] I previously reviewed her outpatient records from [facility], including review of notes, laboratories, [...] She continues surveillance with liver clinic at [facility] and I will continue to follow her every 6 months, sooner if newbleeding issues arise. --04/02/2020: We reviewed informed consent for Daratumumab/Velcade/Dexamethasone for active myeloma therapy. I requested prior liver biopsy results and notes from liver clinic at [facility]. Platelet count in 40,000 range but [...] infiltration that may further impairher liver function. [facility] hepatology discussed liver transplant but sheis likely no longer a candidate for this given active myeloma. We chose least hepatotoxic regimen for treatment of her active myeloma with 50% dose reduction of Velcade. Liver function remained stable since start of therapy 04/10/2020. --Requested prior liver biopsy and [facility] liver clinic records. Dose reduction 20% Kyprolis [...] for coordination of care (as documented) and jjrb-vu-lpar counseling of patient and/or family. Dictated By: Shannon Gallagher APRN DD/ [id number] Signed By: <Electronically signed by KEITH Shannon Samedward> 10/15/22 1104 [facility] Work Phone: Progress note Author Fabiola Marinelli [facility] March 11, 2023 9:43amNote Date/TimeMay 2022 9:04[facility] [place] [address] Hem/Onc Follow Up Note - OP Signed Patient: Mojgan Pérez MR#: [id number] : 1955 Acct:[id number] Age/Sex: 67 / F Type: REG RCR [...] which she would need to receive at [facility]. F/u with me in 2 weeks--if persistent [...] about 3 to 4 weeks, possibly with lead c developer covering at that time. Patient expressed understanding. [...] follow-up as directed. Planning a trip to [place] on March 06, therefore we will hold [...] December 2020 to 60.2 in October 2021. [place] lambda ratio has also started to decline to 0.21 in October 2021. For now I'm continuing her daratumumab with Revlimid at current dosing, but I contacted Dr. Benavidez at [facility] for CAR-T celleligibility. If he has recommendations [...] and myeloma labs (follow quant immunoglobulins and [place]/Lambda light chain ratio with skeletal survey in 2 weeks so results available for appointment). 08/30/2021: Mojgan is here for 2-week follow-up for completion of her palliative radiation therapywith significant improvement of pain in her right hip and pelvis. We sent her for echocardiogram performed 08/23/[address] [facility] heart and vascular [place] as baseline for possible Kyprolis therapy. This returned with ejection fraction 60% which is normal with grade 1 left ventricular diastolic dysfunction and 1+ tricuspid valve regurgitation and trace to 1+ aortic valve regurgitation.Otherwise unremarkable. I discussed her case with Dr. Benavidez of malignant hematology at [facility]. He advised against Kyprolis therapy given her [...] spike). Slowly improving IgG to near normal. [place]/lambda light chain ratio normal with mildly increased [...] daughter) for cycle 8, week 2 followup [id number] mg/kg IV weekly, Dexamethasone 20mg weekly, and [...] symptoms--improving thrombocytopenia to 79,000 and improved leukopenia. 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 Still [...] her case with Dr. Piter Benavidez at [facility] malignant hematology for optimal regimen. The [...] request prior liver biopsy and records from [facility] liver clinic. The patient and her son (by telephone) expressed understanding and will follow- up as directed in 2 weeks for consent and likely start of therapy. --04/02/2020: Mojgan presents after infusion port placement at [facility] by interventional radiology due to platelet count [...] (for liver dysfunction) 0.7mg/m2 D1,D4,D8, D11, and Lvzcmtmgqjvfz28no IV weekly--repeat for every 3 week cycles [...] GERD, and fibromyalgia [facility]. She states that she was followed with Dr. Kumari prior to his senior living and was told that she had an [...] The treatments were given with AP/PA vaz [id number] MV photons and MLC blocks. 3. Deferred [...] nonalcoholic steatohepatitis with cirrhosis, previously followed by [facility] gastroenterology. Cardiovascular: No Chest Pain, No Edema, [...] Social History Comments: [facility] Home Medications & Allergies Allergies [...] Active Protocol: Document 02/18/23 10:19 LB (Rec: 04/19/23 10:20 LB [id number]) Distress Screening Distress Score: [...] 596, IgA 26 L, IgM 27, Free [place] LC, Quant 9.6, Free LambdaLC, Quant 128.9 H, Free [place]/Lambda Ratio 0.07 L 03/09/23 12:25: PHA Creatinine Clear 69.82, Sodium 142, Potassium 3.7, Chloride 105, Carbon Yypctdr91.8, Anion Gap 12.9, BUN 17, Creatinine 0.54 [...] % (Auto) 56.5, Lymph % (Auto) 30.2, Briscoe % (Auto) 11.1, Eos % (Auto) 2.1, Baso % (Auto) 0.1, Nucleat RBC Rel Count 0.0, Neut # (Auto) 1.4 L, Lymph # (Auto) 0.7 L, Briscoe # (Auto) 0.3, Eos # (Auto) 0.1, [...] Staging Staging: Stage IIIA Multiple Myeloma ([place] criteria) (1) Multiple myeloma Qualifiers: Multiple myeloma [...] [facility] Her persistent thrombocytopenia made her ineligible [...] the patient in hematology tumor board at [facility]. --Infusion port placed 03/22/2020 at [facility] due to low platelets. No complications. --03/12/2020: [...] needed for cytopenias.Evaluation for CAR-T therapy at [facility]. Send myeloma labs and skeletal survey [...] bone marrow biopsy, but this would not change management expert, therefore we will give Pomalyst (now decreasedto [...] immunoglobulins, and kappa/lambda light chains(ok to see PARK MANAGER). --09/17/2022: Mojgan is here for cycle 3 [...] in 6 weeks or sooner as needed. [place]/lambda light chains were reviewed and doshow partial [...] persistent cytopenias and sinusitis. She now has [id number] and platelets 37,000 without bleeding. Relatively stable [...] I previously reviewed her outpatient records from [facility], including review of notes, laboratories, and [...] She continues surveillance with liver clinic at [facility] and I will continue to follow her every 6 months, sooner if newbleeding issues arise. --04/02/2020: We reviewed informed consent for Daratumumab/Velcade/Dexamethasone for active myeloma therapy. I requested prior liver biopsy results and notes from liver clinic at [facility]. Platelet count in 40,000 range but [...] infiltration that may further impairher liver function. [facility] hepatology discussed liver transplant but sheis likely no longer a candidate for this given active myeloma. We chose least hepatotoxic regimen for treatment of her active myeloma with 50% dose reduction of Velcade. Liver function remained stable since start of therapy 04/10/2020. --Requested prior liver biopsy and [facility] liver clinic records. Dose reduction 20% Kyprolis [...] for coordination of care (as documented) and [id number] counseling of patient and/or family. Dictated By: Fabiola Marinelli MD DD/ 3 Signed By: <Electronically signed by MD Fabiola Marinelli> 03/11/2343 [facility] Work Phone: Progress note Author Fabiola Marinelli [facility] June 10, 2023 7:36pmNote Date/TimeAugust 2022 1:37pmPampa Regional [facility] [place] [address] Hem/Onc Follow Up Note - OP Signed Patient: Mojgan Pérez MR#: [id number] : 1955 Acct:[id number] Age/Sex: 67 / F Type: REG RCR Copies to: MD Yinka Downey MD Katherine M McGraw, FIBRE TECHNOLOGIST~ Subjective Date/Time of Service: Date of Service: [...] which she would need to receive at [facility]. F/u with me in 2 weeks--if persistent [...] about 3 to 4 weeks, possibly with lead c developer covering at that time. Patient expressed understanding. [...] follow-up as directed. Planning a trip to [place] on March 06, therefore we will hold [...] in December 2020 to 60.2 inDecember 2020. [place] lambda ratio has also started to decline to 0.21 in October 2021. For now I'm continuing her daratumumab with Revlimid at current dosing, but I contacted Dr. Benavidez at [facility] for CAR-T cell eligibility. If he has [...] CMP,and myeloma labs (follow quant immunoglobulins and [place]/Lambda light chain ratio with skeletal survey in 2 weeks so results available for appointment). 08/30/2021: Mojgan is here for 2-week follow-up for completion of her palliative radiation therapywith significant improvement of pain in her right hip and pelvis. We sent her for echocardiogram performed 08/23/[address] [facility] heart and vascular [place] as baseline for possible Kyprolis therapy. This returned with ejection fraction 60% which is normal with grade 1 left ventricular diastolic dysfunction and 1+ tricuspid valve regurgitation and traceto 1+ aortic valve regurgitation. Otherwise unremarkable. I discussed her casewith Dr. Benavidez of malignant hematology at [facility]. He advised against Kyprolis therapy given her [...] spike). Slowly improving IgG to near normal. [place]/lambda light chain ratio normal with mildly increased [...] daughter) for cycle 8, week 2 followup [id number] mg/kg IV weekly, Dexamethasone 20mg weekly, and [...] symptoms--improving thrombocytopenia to 79,000 and improved leukopenia. 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 Still [...] her case with Dr. Piter Benavidez at [facility] malignant hematology for optimal regimen. The [...] request prior liver biopsy and records from [facility] liver clinic. The patient and her son (by telephone) expressed understanding and will follow- up as directed in 2 weeks for consent and likely start of therapy. --04/02/2020: Mojgan presents after infusion port placement at [facility] by interventional radiology due to platelet count [...] (for liver dysfunction) 0.7mg/m2 D1,D4,D8, D11, and Gfzveupalvqhm66gh IV weekly--repeat for every 3 week cycles [...] GERD, and fibromyalgia who [facility] [place] [place] [facility] [place] mild to moderate [facility]. She states that she was followed with Dr. Kumari prior to his senior living and was told that she had an [...] nonalcoholic steatohepatitis with cirrhosis, previously followed by [facility] gastroenterology. Cardiovascular: No Chest Pain, No Edema, [...] L, IgA 38 L, IgM 32, Free [place] LC, Quant 13.9, Free Lambda LC, Quant 241.0H, Free [place]/Lambda Ratio 0.06 L - Impressions PET f-18 [...] Staging Staging: Stage IIIA Multiple Myeloma ([place] criteria) (1) Multiple myeloma Qualifiers: Multiple myeloma [...] [facility] Her persistent thrombocytopenia made her ineligible [...] the patient in hematology tumor board at [facility]. --Infusion port placed 03/22/2020 at [facility] due to low platelets. No complications. --03/12/2020: [...] needed for cytopenias.Evaluation for CAR-T therapy at [facility]. Send myeloma labs and skeletal survey [...] bone marrow biopsy, but this would not change management expert, therefore we will give Pomalyst (now decreasedto [...] immunoglobulins, and kappa/lambda light chains(ok to see PARK MANAGER). --09/17/2022: Mojgan is here for cycle 3 [...] in 6 weeks or sooner as needed. [place]/lambda light chains were reviewed and doshow partial [...] persistent cytopenias and sinusitis. She now has [id number] and platelets 37,000 without bleeding. Relatively stable [...] bleeding. Hemoglobin stable at 10 but worsening [id number] with ANC 1000. Rising lambda light chains [...] I previously reviewed her outpatient records from [facility] [place], including review of notes, laboratories, and [...] She continues surveillance with liver clinic at [facility] and I will continue to follow her every 6 months, sooner if newbleeding issues arise. --04/02/2020: We reviewed informed consent for Daratumumab/Velcade/Dexamethasone for active myeloma therapy. I requested prior liver biopsy results and notes from liver clinic at [facility]. Platelet count in 40,000 range but [...] infiltration that may further impairher liver function. [facility] hepatology discussed liver transplant but sheis likely no longer a candidate for this given active myeloma. We chose least hepatotoxic regimen for treatment of her active myeloma with 50% dose reduction of Velcade. Liver function remained stable since start of therapy 04/10/2020. --Requested prior liver biopsy and [facility] liver clinic records. Dose reduction 20% Kyprolis [...] to hold therapy, second opinion virtual visit [facility] Hematology Coordination of Care & Counseling Time: Greater than 50% of time spent with patient was for coordination of care (as documented) and qcpz-[id number] counseling of patient and/or family. Dictated By: Fabiola Marinelli MD DD/ [id number] Signed By: <Electronically signed by MD Fabiola Marinelli> 06/10/231935 [facility] Work Phone: Progress note Author Fabiola Marinelli [facility] July 08, 2023 1:34pmNote Date/TimeSeptember 2022 10:53[facility] [place] [id number] Hem/Onc Follow Up Note - OP Signed Patient: Mojgan Pérez MR#: [id number] : 1955 Acct:[id number] Age/Sex: 67 / F Type: REG RCR Copies to: MD Yinka Downey MD Dr. Koen van Besien~ Subjective Date/Time of Service: Date of Service: 07/08/2023 Time of Service: 10:53 Chief Complaint: Patient is here for a 1 month follow up visit follow up visit for multiple myelomaand go over labs HPI: 07/08/2023: Mojgan had her virtual consultation with Dr. Lindquist of [facility] malignanthematology on 06/26/2023. He had discussed treatment optionswith her given her worsening cytopenias and generalized pain and fatigue. Possible by specific monoclonal antibody therapy versus CAR-T therapy. He also remarked that her prior bone marrow biopsy may have underestimated the degree ofher myeloma since it may have been performed at the site of prior radiation. [facility]will [facility] to evaluate her in person [...] care to Dr. Lindquist forfurther therapy at [facility]. It is possible that if she tolerates antibody treatment well that we may be able to transfer her therapy her low 35- minute follow-up for coordination of care with [facility]. 06/10/2023: Mojgan is unaccompanied today--scheduled to see [...] which she would need to receive at [facility]. F/u with me in 2 weeks--if persistent [...] about 3 to 4 weeks, possibly with lead c developer covering at that time. Patient expressed understanding. [...] follow-up as directed. Planning a trip to [place] on March 06, therefore we will hold [...] December 2020 to 60.2 in October 2021. [place] lambda ratio has also started to decline to 0.21 in October 2021. For now I'm continuing her daratumumab with Revlimid at current dosing, but I contacted Dr. Benavidez at [facility] for CAR-T cell eligibility. If he has [...] and myeloma labs (follow quant immunoglobulins and [place]/Lambda light chain ratio with skeletal survey in 2 weeks so results available for appointment). 08/30/2021: Mojgan is here for 2-week follow-up for completion of her palliative radiation therapywith significant improvement of pain in her right hip and pelvis. We sent her for echocardiogram performed 08/23/[address] [facility] heart and vascular [place] as baseline for possible Kyprolis therapy. This returned with ejection fraction 60% which is normal with grade 1 left ventricular diastolic dysfunction and 1+ tricuspid valve regurgitation and trace to 1+ aortic valve regurgitation.Otherwise unremarkable. I discussed her case with Dr. Benavidez of malignant hematology at [facility]. He advised against Kyprolis therapy given her [...] spike). Slowly improving IgG to near normal. [place]/lambda light chain ratio normal with mildly increased [...] daughter) for cycle 8, week 2 followup [id number] mg/kg IV weekly, Dexamethasone 20mg weekly, and [...] symptoms--improving thrombocytopenia to 79,000 and improved leukopenia. 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 Still [...] her case with Dr. Piter Benavidez at [facility] malignant hematology for optimal regimen. The [...] request prior liver biopsy and records from [facility] liver clinic. The patient and her son (by telephone) expressed understanding and will follow- up as directed in 2 weeks for consent and likely start of therapy. --04/02/2020: Mojgan presents after infusion port placement at [facility] by interventional radiology due to platelet count [...] (for liver dysfunction) 0.7mg/m2 D1,D4,D8, D11, and [id number] IV weekly--repeat for every 3 week cycles [...] GERD, and fibromyalgia who [facility] [place] [facility] mild to moderate thrombocytopenia. She states that she was followed with Dr. Kumari prior to his senior living and was told that she had an [...] nonalcoholic steatohepatitis with cirrhosis, previously followed by [facility] gastroenterology. Cardiovascular: No Chest Pain, No Edema, [...] L, IgA 38 L, IgM 33, Free [place] LC, Quant 11.1, Free Lambda LC, Quant 306.6H, Free [place]/Lambda Ratio 0.04 L 07/01/23 09:50: Corrected WBC 1.6 L, Uncorrected WBC Count 1.6 L, RBC 3.18 L, Hgb 10.5 L, Hct 31.0 L, MCV 97.5, MCH 33.0, MCHC 33.8, RDW 16.2 H, Plt Count 26 L*, MPV 8.0, Neut % (Auto) 52.0, Lymph % (Auto) 31.1, Briscoe % (Auto) 10.9, Eos % (Auto) 5.8, Baso % (Auto) 0.2, Nucleat RBC Rel Count 0.3, Neut # (Auto) 0.8 L, Lymph # (Auto) 0.5 L, Briscoe # (Auto) 0.2, Eos # (Auto) 0.1, [...] Staging Staging: Stage IIIA Multiple Myeloma ([place] criteria) (1) Multiple myeloma Qualifiers: Multiple myeloma [...] [facility] Her persistent thrombocytopenia made her ineligible [...] new bone symptoms. --------- - --Due to COVID- epidemic, her 6-month follow-up [...] the patient in hematology tumor board at [facility]. --Infusion port placed 03/22/2020 at [facility] due to low platelets. No complications. --03/12/2020: [...] needed for cytopenias.Evaluation for CAR-T therapy at [facility]. Send myeloma labs and skeletal survey [...] bone marrow biopsy, but this would not change management expert, therefore we will give Pomalyst (now decreasedto [...] and kappa/lambda light chains (ok to see PARK MANAGER). --09/17/2022: Mojgan is here for cycle 3 [...] in 6 weeks or sooner as needed. [place]/lambda light chains were reviewed and doshow partial [...] persistent cytopenias and sinusitis. She now has [id number] and platelets 37,000 without bleeding. Relatively stable [...] bleeding. Hemoglobin stable at 10 but worsening [id number] with ANC 1000. Rising lambda light chains [...] novel therapies that are not available at [facility]. We did discuss potential risk of cytokine release syndrome with by specific antibody therapy that would require a short hospital admission at [facility]. For now we set up afollow-up visit in 3 months with myeloma laboratories, sooner if requested byDr. Lindquist. Patient is in agreement with this plan over this 35-minute moderate complexity visit for coordination of care with [facility]. (2) Bone marrow hypocellularity Hypocellular for age [...] I previously reviewed her outpatient records from [facility], including review of notes, laboratories, [...] She continues surveillance with liver clinic at [facility] and I will continue to follow her every 6 months, sooner if newbleeding issues arise. --04/02/2020: We reviewed informed consent for Daratumumab/Velcade/Dexamethasone for active myeloma therapy. I requested prior liver biopsy results and notes from liver clinic at [facility]. Platelet count in 40,000 range but [...] Dr. Supa Lindquist for further therapy at [facility] as noted above. (5) Cancer-related pain Improved [...] infiltration that may further impairher liver function. [facility] hepatology discussed liver transplant but sheis likely no longer a candidate for this given active myeloma. We chose least hepatotoxic regimen for treatment of her active myeloma with 50% dose reduction of Velcade. Liver function remained stable since start of therapy 04/10/2020. --Requested prior liver biopsy and [facility] liver clinic records. Dose reduction 20% Kyprolis [...] 6 months. Second opinion with Dr. Lindquist [facility] (virtual consult 06/26/2023; In person consult 07/23/2023 [...] to hold therapy, second opinion virtual visit [facility] Hematology Coordination of Care & Counseling Time: Greater than 50% of time spent with patient was for coordination of care (as documented) and [id number] counseling of patient and/or family. Dictated By: Fabiola Marinelli MD DD/ [id number] Signed By: <Electronically signed by MD Fabiola Marinelli> 07/08/23 1122 [facility] Work Phone: Progress note Author Fabiola Marinelli [facility] RehabilitationNote Date/TimeNovember 2023 10:27am [facility] [place] [address] Cancer Center Note Signed Patient: Mojgan Pérez MR#: [id number] : 1955 Acct:[id number] Age/Sex: 69 / F Type: DEP AMB Date of Service: 09/15/24 Copies to: Yinka Lopez MD~ Assessment & Plan A/P (1) Encounter for antineoplastic immunotherapy: Plan: Teclistamab received at [facility]: She was admitted 08/04/2023 for Teclistamab ramp-up [...] IVIG 0.4 mg/kg every 3 months at [facility]--now monthly at --Previous doses held cycle 2-day [...] mg to start mid September 2024 at [facility]. --IVIG 20 g about once every 4 to 6 weeks with hydrocortisone injections 100 mg each IVIG infusion.IVIG resumed for IgG less than 400 on most recent labs lateOct at [facility]. 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 She has high risk cytogenetics and I [facility]. Her persistent thrombocytopenia made her ineligible [...] the patient in hematology tumor board at [facility]. --Infusion port placed 03/22/2020 at [facility] due to low platelets. No complications. --03/12/2020: [...] needed for cytopenias.Evaluation for CAR-T therapy at [facility]. Send myeloma labs and skeletal survey [...] due to baseline liver dysfunction. -- 03/19/2022: Mogjan was only able to tolerate 5 days [...] bone marrow biopsy, but this would not change management expert, therefore we will give Pomalyst (now decreasedto [...] immunoglobulins, and kappa/lambda light chains(ok to see PARK MANAGER). --09/17/2022: Mojgan is here for cycle 3 [...] in 6 weeks or sooner as needed. [place]/lambda light chains were reviewed and doshow partial [...] persistent cytopenias and sinusitis. She now has [id number] and platelets 37,000 without bleeding. Relatively stable [...] bleeding. Hemoglobin stable at 10 but worsening [id number] with ANC 1000. Rising lambda light chains [...] novel therapies that are not available at [facility]. We did discuss potential risk of cytokine release syndrome with by specific antibody therapy that would require a short hospital admission at [facility]. For now we set up afollow-up visit in 3 months with myeloma laboratories, sooner if requested byDr. Lindquist. Patient is in agreement with this plan over this 35-minute moderate complexity visit for coordination of care with [facility]. --10/21/2023: As summarized in the HPI, Mojgan has been on active therapy with Dr. Lindquist of malignant hematology at [facility] since initiation of Teclistamab by specific antibody forrefractory myeloma. This was initiated 08/04/2023 with inpatient admission for ramp-up phase. She had grade 1 CRS (fevers) and ICANS (suzanna ICE score 8/10). She then received cycle 2-day 1 weekly at [facility] from 08/17 through last dose 09/08/2023. Her third cycle was delayed due to positive COVID-19 on 09/12/2023 treated with Paxlovid in [place]. She was to resume therapy with Teclistamab on 10/13 but had arecurrent sinus infection treated with antibiotics and steroids by Dr. Sanchez. She received IVIG 09/22/2023 at [facility] for IgG level lessthan 400. We wrote orders today to resume IVIG here in [place] due to her recurrent infections and persistent pancytopenia(ANC 1000, platelets 35-40,000)secondary to known liver disease/KAPADIA cirrhosis. -- We are unable to deliver Teclistamab therapy locally due to pharmacy control issues and she willcontinue Teclistamab at [facility]. I personally spoke to Dr. Lindquist by [...] primary follow-up for myeloma will be at [facility]. High complexity 1 hour visit. -- 01/21/2024: Updated history from [facility] from patient, notes scanned in, and telephone [...] continues Teclistamab therapy every 3 weeks at [facility] with IVIG infusions. Since last visit with me she had hospitalization for sepsis due to spontaneous bacterial peritonitis. She continues monthly IVIG at [facility] due to severe hypogammaglobulinemia from multiple [...] Dr. López. I am investigating with our drum sealer whether we can transition her Teclistamab infusions to [facility] if we are able to obtain supply of the medication and coverage by insurance. I will communicate with whether it is feasible to transition her care locally prior to the winter months. If she continues follow-up in [place] we will follow with her every 6 months for local supportive care. We have also reviewed notes from gastroenterology, pulmonary medicine, palliative care, and outside notes from [facility]. High complexity 45-minute visit with 30 minutes coordination of care. --09/15/2024: Patient has been followed at [facility] for Teclistamab therapy, but now that she has been stable for over a year and we have appropriate licensing and in-service here [facility], we will transfer Teclistamab therapy for primary follow-up at [facility]. Orders are written to proceed next week [...] laboratories and documentation of Teclistamab therapy at [facility] (3) Refractory chronic cough: Plan: Given her [...] infections and UTI with IVIG delivered at [facility] monthly. 09/15/2024: With transition Teclistamab therapy to [facility], we will also arrange ongoing IVIG every [...] I previously reviewed her outpatient records from [facility], including review of notes, laboratories, and [...] She continues surveillance with liver clinic at [facility] and I will continue to follow [...] Dr. Supa Lindquist for further therapy at [facility] as noted above. -- 10/21/2023: Platelet count has remained in the 35-40,000 range since startingTeclistamab for multiple myeloma. Continue follow-up with Dr. Supa Lindquist for further therapy at [facility]. --01/21/2024, 06/29/2024, 09/15/2024: Most recent platelets responding [...] infiltration that may further impairher liver function. [facility] hepatology discussed liver transplant but sheis likely no longer a candidate for this given active myeloma. We chose least hepatotoxic regimen for treatment of her active myeloma with 50% dose reduction of Velcade. Liver function remained stable since start of therapy 04/10/2020. --Requested prior liver biopsy and [facility] liver clinic records. Dose reduction 20% Kyprolis due to KAPADIA with cirrhosis (normal bilirubin and transaminases). Stable LFTs on now Teclistamab therapy at [facility], transition to [facility]. (9) Chronic copper deficiency: Plan: As noted above patient was placed on supplemental copper therapy due to low ceruloplasmin noted 03/11/2023 labs. Repeat labs showed normal copper and ceruloplasmin in July 2023. Copper therapy has been discontinued by her treating physicians in [place]. (10) Encounter for coordination of complex care: Plan: Discussion with primary oncologist at [facility]. Coordination of workup for chronic cough. Review of outside records--transition of Teclistamab and IVIG therapy to [facility] orders reviewed with [facility] chemotherapy pharmacist today Medications: New diazepam 5 [...] 21 Teclistamab (117mg)that daywith recommended transition to [facility] for ongoing doses and IVIG for IgGlevel less than 400. Recommended for seasonal influenza, updated COVID, and RSV vaccines. She has persistent thrombocytopeniathat has not significantly changed and leukopenia with absolute [id number]. No recent infections or bleeding issues. She was seen by Dr. Garcia Sanchez at yesterday and has scheduled follow-up for lab tests within the next month. Stable blood sugar control and stable pain with no evidence of progression on most recent myeloma labs at [facility] (09/06/2024: IgG 312, IgA less than 7, [...] toxicities of therapy. High complexity 45 minutes [id number] with additional 30 minutes preparation of orders and review of outside laboratories and documentation of Teclistamab therapy at [facility]. 06/29/2024: Mojgan is here for over 5-month follow-up while concurrently following with [facility] malignant hematology for Teclistamab BiTE therapy [...] visit with me she was hospitalized at [facility] 04/10-04/19/2024 for sepsis, septic shock, and bacteremia due to Enterobacter from spontaneous bacterial peritonitis.She was treated with IV antibiotics cefepime over 2 weeks monitored by ICU team, then transition to outpatient infectious disease follow-up. She developed paroxysmal atrial fibrillation and follows with cardiology at [facility]. She has followed with hepatology at [facility] and recently was seen by Dr. [...] pain with ambulation. Ireviewed her laboratories from [facility] showing undetectable kappa and lambda light chains, mild hypogammaglobulinemia of IgG with undetectable IgM and IgA. Her last whole- body PET/CT was in March 2023 therefore I will order whole-body PET/CT and review results with Dr. López. We will investigate whether she can transition her care with Teclistamab BiTE and IVIG infusions to [facility] for the winter due to travel issues but we need to ensure that pharmacy can provide this medication that is covered by insurance locally. If she continues Teclistamab BiTE/IVIG at [facility] for thewinter, I will see her in follow-up in 6 months since we have outside records. This is a high complexity 45-minute follow-up visit to review current managementwith tertiary care [facility] malignant hematology, local GI, pulmonary medicine, and palliative medicine records. Coordination of PET/CT. Additional care complexity code [id number] to investigate transition of care locally. 01/22/2024: Mojgan is here for 3-month follow-up while concurrently following with [facility] malignant hematology for Teclistamab BiTE therapy for [...] most recent note available for review from [facility] is from 11/18/2019 for discharge summary. She [...] that she received IVIG last week at [facility] which has been continued monthly. --Following her [...] current treatment course with Dr. Spears at [facility] hematology both through review of recent visit [...] 09/12/2023. She was treated with Paxlovid in [place] and has not resumed therapy since that [...] originally discussed potentially transitioning to Teclistamab in [place] but we are not an approved site [...] physical, lab review, review of current management [facility], and personal communication with her treating oncologist. 07/08/2023: [facility]. He had discussed treatment optionswith her given her worsening cytopenias and generalized pain and fatigue. Possible by specific monoclonal antibody therapy versus CAR-T therapy. He also remarked that her prior bone marrow biopsy may have underestimated the degree ofher myeloma since it may have been performed at the site of prior radiation. Hewill be seeing her at [facility] this 07/23/2023 to evaluate her in person [...] care to Dr. Lindquist forfurther therapy at [facility]. It is possible that if she tolerates antibody treatment well that we may be able to transfer her therapy her low 35- minute follow-up for coordination of care with [facility]. 06/10/2023: Mojgan is unaccompanied today--scheduled to see [...] refer to orthopedics for possible prophylactic kenton. Indiono contact from Dr. Benavidez for bispecific antibody [...] which she would need to receive at [facility]. F/u with me in 2 weeks--if persistent [...] about 3 to 4 weeks, possibly with lead c developer covering at that time. Patient expressed understanding. [...] follow-up as directed. Planning a trip to [place] on March 06, therefore we will hold [...] December 2020 to 60.2 in October 2021. [place] lambda ratio has also started to decline to 0.21 in October 2021. For now I'm continuing her daratumumab with Revlimid at current dosing, but I contacted Dr. Benavidez at [facility] for CAR-T celleligibility. If he has recommendations [...] and myeloma labs (follow quant immunoglobulins and [place]/Lambda light chain ratio with skeletal survey in 2 weeks so results available for appointment). 08/30/2021: Mojgan is here for 2-week follow-up for completion of her palliative radiation therapywith significant improvement of pain in her right hip and pelvis. [facility] [place] as baseline for possible Kyprolistherapy. This returned with ejection fraction 60% which is normal with grade 1 left ventricular diastolic dysfunction and 1+ tricuspid valve regurgitation and traceto 1+ aortic valve regurgitation. Otherwise unremarkable. I discussed her casewith Dr. Benavidez of malignant hematology at [facility]. He advised against Kyprolis therapy given her [...] spike). Slowly improving IgG to near normal. [place]/lambda light chain ratio normal with mildly increased [...] daughter) for cycle 8, week 2 followup [id number] mg/kg IV weekly, Dexamethasone 20mg weekly, and [...] symptoms--improving thrombocytopenia to 79,000 and improved leukopenia. 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 Still [...] her case with Dr. Piter Benavidez at [facility] malignant hematology for optimal regimen. The [...] request prior liver biopsy and records from [facility] liver clinic. The patient and her son (by telephone) expressed understanding and will follow- up as directed in 2 weeks for consent and likely start of therapy. --04/02/2020: Mojgan presents after infusion port placement at [facility] by interventional radiology due to platelet count [...] (for liver dysfunction) 0.7mg/m2 D1,D4,D8, D11, and [id number] IV weekly--repeat for every 3 week cycles [...] GERD, and fibromyalgia who was previouslyfollowed by [facility] in [place] for chronic mild to moderate thrombocytopenia. She states that she was followed withDr. Kumari prior to his senior living and was told that she had an [...] The treatments were given with AP/PA vaz [id number] MV photons and MLC blocks. 3. Deferred [...] therapy versus CAR-Teligibility. 12. Teclistamab received at [facility]: She was admitted 08/04/2023 for Teclistamab ramp-up [...] IVIG 0.4 mg/kg every 3 months at [facility]--now monthly at -- Teclistamab on hold for [...] mg to start mid September 2024 at [facility]. --Previous doses held cycle 2-day 22 and [...] less than 400 on most recent labs lateAugust at [facility]. 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 She has longstanding nonalcoholic steatohepatitiswith cirrhosis, followed by [facility] hepatology and [facility] gas troenterology. Cardiovascular: No Chest Pain, No Edema, No Palpitations, No Syncope. Recurrent A-fib followed by [facility] cardiology. Genitourinary: No Discharge, No Dysuria, [...] Onc) LAB RESULTS Outside labs reviewed from [facility], most recently 05/24/2024: White blood cells [...] kappa/lambda light chain ratio ~~~~~~~~~~~~~~~~~~~~~~~~~~~~~~~~~~~~~~~~~ Labs from [facility] 09/06/2024: IgG 312, IgA less than 7, [...] signed by MD Fabiola Marinelli> 09/16/24 0849 [facility] Work Phone: Progress note Author Fabiola Marinelli [facility]Note Date/TimeMay 2024 10:00[facility] [place] [address] Cancer Center Note Signed Patient: Mojgan Pérez MR#: [id number] : 1955 Acct:[id number] Age/Sex: 69 / F Type: DEP AMB Date of Service: 03/16/25 Copies to: Yinka Lopez MD~ Assessment & Plan A/P (1) Encounter for antineoplastic immunotherapy: Plan: Teclistamab received at [facility]: She was admitted 08/04/2023 for Teclistamab ramp-up [...] IVIG 0.4 mg/kg every 3 months at [facility]--now monthly at --Previous doses held cycle 2-day [...] 100% dose 123 mg started 09/28/2024 at [facility]. Tolerated well, continue every 3-week therapy. -- [...] less than 400 [facility] Currently receiving IVIG monthly at [facility] (IgG was 313 on last labs 12/29/2024). [...] [facility]. Her persistent thrombocytopenia made her ineligible forany [...] the patient in hematology tumor board at [facility]. --Infusion port placed 03/22/2020 at [facility] due to low platelets. No complications. --03/12/2020: [...] needed for cytopenias.Evaluation for CAR-T therapy at [facility]. Send myeloma labs and skeletal survey [...] bone marrow biopsy, but this would not change management expert, therefore we will give Pomalyst (now decreased [...] immunoglobulins, and kappa/lambda light chains(ok to see PARK MANAGER). --09/17/2022: Mojgan is here for cycle 3 [...] in 6 weeks or sooner as needed. [place]/lambda light chains were reviewed and doshow partial [...] persistent cytopenias and sinusitis. She now has [id number] and platelets 37,000 without bleeding. Relatively stable [...] bleeding. Hemoglobin stable at 10 but worsening [id number] with ANC 1000. Rising lambda light chains [...] novel therapies that are not available at [facility]. We did discuss potential risk of cytokine release syndrome with by specific antibody therapy that would require a short hospital admission at [facility]. For now we set up afollow-up visit in 3 months with myeloma laboratories, sooner if requested byDr. Lindquist. Patient is in agreement with this plan over this 35-minute moderate complexity visit for coordination of care with [facility]. --10/21/2023: As summarized in the HPI, Mojgan has been on active therapy with Dr. Lindquist of malignant hematology at [facility] since initiation of Teclistamab by specific antibody forrefractory myeloma. This was initiated 08/04/2023 with inpatient admission for ramp-up phase. She had grade 1 CRS (fevers) and ICANS (suzanna ICE score 8/10). She then received cycle 2-day 1 weekly at [facility] from 08/17 through last dose 09/08/2023. Her third cycle was delayed due to positive COVID-19 on 09/12/2023 treated with Paxlovid in [place]. She was to resume therapy with Teclistamab on 10/13 but had a recurrent sinus infection treated with antibiotics and steroids by Dr. Chante alcantar. She received IVIG 09/22/2023 at [facility] for IgG level lessthan 400. We wrote orders today to resume IVIG here in [place] due to her recurrent infections and persistent pancytopenia(ANC 1000, platelets 35-40,000)secondary to known liver disease/KAPADIA cirrhosis. -- We are unable to deliver Teclistamab therapy locally due to pharmacy control issues and she willcontinue Teclistamab at [facility]. I personally spoke to Dr. Lindquist by [...] primary follow-up for myeloma will be at [facility]. High complexity 1 hour visit. -- 01/21/2024: Updated history from [facility] from patient, notes scanned in, and telephone [...] continues Teclistamab therapy every 3 weeks at [facility] with IVIG infusions. Since last visit with me she had hospitalization for sepsis due to spontaneous bacterial peritonitis. She continues monthly IVIG at [facility] due to severe hypogammaglobulinemia from multiple [...] Dr. López. I am investigating with our drum sealer whether we can transition her Teclistamab infusions to [facility] if we are able to obtain supply of the medication and coverage by insurance. I will communicate with Dr. López whether it is feasible to transition her care locally prior to the winter months. If she continues follow-up in [place] we will follow with her every 6 months for local supportive care. We have also reviewed notes from gastroenterology, pulmonary medicine, palliative care, and outside notes from [facility]. High complexity 45-minute visit with 30 minutes coordination of care. --09/15/2024: Patient has been followed at [facility] for Teclistamab therapy, but now that she has been stable for over a year and we have appropriate licensing and in-service here [facility], we will transfer Teclistamab therapy for primary follow-up at [facility]. Orders are written to proceed next week [...] laboratories and documentation of Teclistamab therapy at [facility]. --10/05/2024: Here for follow-up after initial dose of Teclistamab therapy at [facility] 09/28/2024. She tolerated this well with no concerning symptoms from last visit 3 weeks ago. Laboratories reviewed showing stable leukopenia with ANC 800 and no signs or symptoms of infection. Hemoglobin stable at 9.9, platelet count stable at 53,000 without bleeding. Normal renal and hepatic function. [place] and lambda light chains are below the [...] see her sooner after her evaluations at [facility] as noted below. High complexity 45-minute follow-up [...] core morbidities, coordination of care with her [facility]. Ez's upcoming procedure and new diagnosisof [...] hepatocellular carcinoma. She agrees to referral to [facility] interventional radiology for consideration of potential embolization therapy versus ablation. She may require platelet transfusions for future interventions. I will follow-up with her after her IR evaluation to review plan. 12/29/2024: I reviewed the note from virtual visit with Dr. Calderon--scheduled for biopsy and microwave ablation of the [...] of right liver lobe hepatocellular carcinoma at [facility] on 01/05/2025. Tolerated well without residual pain. [...] evaluation. 12/29/2024: Reviewed recommendations from colorectal surgery PARK MANAGER who noted the patient was too high [...] infiltration that may further impairher liver function. [facility] hepatology discussed liver transplant but sheis likely no longer a candidate for this given active myeloma. We chose least hepatotoxic regimen for treatment of her active myeloma with 50% dose reduction of Velcade. Liver function remained stable since start of therapy 04/10/2020. --Requested prior liver biopsy and [facility] liver clinic records. Dose reduction 20% Kyprolis due to KAPADIA with cirrhosis (normal bilirubin and transaminases). Stable LFTs on now Teclistamab therapy at [facility], transition to [facility]. Now followed by Dr. Sanchez at [facility] GI. 11/16/2024: Sending to [facility] interventional radiology for new diagnosis of HCC and will determine if she is a candidate for local therapy withembolization or ablation. 12/29/2024, 02/03/2025, 03/16/2025: Continue follow-up with Dr. Sanchez [facility] gastroenterology. 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 09/15/2024: With transition Teclistamab therapy to [facility], we will also arrange ongoing IVIG every [...] IVIG. 02/03/2025: Now continue monthly IVIG at [facility] since transfer of care from . Recent [...] I previously reviewed her outpatient records from [facility], including review of notes, laboratories, and [...] She continues surveillance with liver clinic at [facility] and I will continue to follow [...] Dr. Supa Lindquist for further therapy at [facility] as noted above. -- 10/21/2023: Platelet count has remained in the 35-40,000 range since startingTeclistamab for multiple myeloma. Continue follow-up with Dr. Supa Lindquist for further therapy at [facility]. --01/21/2024, 06/29/2024, 10/05/2024, 11/16/2024: Most recent platelets responding in 50-60,000s range.She has now completed over 1 year of Teclistamab therapy and will continue injections locally. -- 12/29/2024: Platelet count 62,000 but need to recheck next Thursday to determine if she needs platelet transfusion for hepatic ablation procedure at [facility]. Ez's. Transfuse if platelets less than [...] care: Plan: Discussion with primary oncologist at [facility]. Coordination of workup for chronic cough. Review of outside records--transition of Teclistamab and IVIG therapy to [facility] orders reviewed with [facility] 10/05/2024: New liver lesion on ultrasound coordinating MRI liver with [facility] GI. 11/16/2024: Coordinating evaluation by interventional radiology and colorectalsurgery for furtherevaluation of HCC and complicated hemorrhoids respectively. 12/29/2024: Coordinating platelet transfusion as needed before hepatic microwave ablation by interventional radiology at [facility], orders for irondeficiency anemia, ongoing Teclistamab and [...] Indication No Indication Cycle Number Last Admin 18 Completed Cycle Day Next Admin No Active Chemotherapy More Active Plan(s) Found History of Present Illness HPI 03/16/2025: Mojgan is here for 6-week follow-up on Teclistamab and status post microwave ablation of right lower lobe hepatocellular carcinoma at [facility] 01/05/2025. Since last visit she visited urgent care on Thursday with symptoms of UTI and was placed on antibiotics. She was able to travel to [facility] and had no complications while she was [...] ablation of right liverlobe hepatocellular carcinoma at [facility] on 01/05/2025. Her last Teclistamab dose was [...] today. She was seen by colorectal surgery BINDERY MACHINE SETTER at [facility] 11/28/2024 due to uncontrolled hemorrhoidal bleeding. Anoscopy was performed showing small circumferential external hemorrhoids that were tender butno active bleeding. Due to her thrombocytopenia she was not felt to be a candidate for surgery but was advised to use compounded hydrocortisone suppositories with lidocaine which have improved her symptoms. She had a virtual consult with Dr. Aguila of interventional radiology at [facility] to prepare for biopsy and [...] 51,000 and blood cell count 2200 with [id number]. Interestingly this lesion was not seen on PET/CT 09/21/2024. We sent an alpha-fetoprotein in September 2024 which returned within normal limits at 4.4. I reviewed the images with the patient and her daughters today with [facility] with [facility]ization or radiofrequency ablation. In addition she was seen by Dr. Pillai for her hemorrhoids which have been troubling to her for the last year. She notes worsening of her perianal pain and extrusion of hemorrhoids but Dr. Pillai feels she is too high risk to [...] will coordinate follow-up with her after her [facility] evaluations and routinely send myeloma labs with [...] transferring care for infusions of Teclistamab-cqyv from [facility] to [facility]. She has no new or concerning [...] 21 Teclistamab (117mg)that daywith recommended transition to [facility] for ongoing doses and IVIG for IgGlevel less than 400. Recommended for seasonal influenza, updated COVID, and RSV vaccines. She has persistent thrombocytopeniathat has not significantly changed and leukopenia with absolute [id number]. No recent infections or bleeding issues. She was seen by Dr. Garcia Sanchez at yesterday and has scheduled follow-up for lab tests within the next month. Stable blood sugar control and stable pain with no evidence of progression on most recent myeloma labs at [facility] (09/06/2024: IgG 312, IgA less than 7, [...] toxicities of therapy. High complexity 45 minutes [id number] with additional 30 minutes preparation of orders and review of outside laboratories and documentation of Teclistamab therapy at [facility]. 06/29/2024: Mojgan is here for over 5-month follow-up while concurrently following with [facility] malignant hematology for Teclistamab BiTE therapy [...] visit with me she was hospitalized at [facility] 04/10-04/19/2024 for sepsis, septic shock, and bacteremia due to Enterobacter from spontaneous bacterial peritonitis.She was treated with IV antibiotics cefepime over 2 weeks monitored by ICU team, then transition to outpatient infectious disease follow-up. She developed paroxysmal atrial fibrillation and follows with cardiology at [facility]. She has followed with hepatology at [facility] and recently was seen by Dr. Garcia Sanchez locally. Following her admission for sepsis she developed bacterial pneumonia and received antibiotics in May and more recently nasal steroids and oral steroids tres exacerbation, followed by Dr. Zackary coreas locally 2 days ago. She stopped Ozempic for diabetes and is maintained on metformin with stable glucose control. Stable hip and leg pain with ambulation. Ireviewed her laboratories from [facility] showing undetectable kappa and lambda light chains, mild hypogammaglobulinemia of IgG with undetectable IgM and IgA. Her last whole- body PET/CT was in March 2023 therefore I will order whole-body PET/CT and review results with Dr. López. We will investigate whether she can transition her care with Teclistamab BiTE and IVIG infusions to [facility] for the winter due to travel issues but we need to ensure that pharmacy can provide this medication that is covered by insurance locally. If she continues Teclistamab BiTE/IVIG at [facility] for thewin, I will see her in follow-up in 6 months since we have outside records. This is a high complexity 45-minute follow-up visit to review current managementwith tertiary care [facility] malignant hematology, local GI, pulmonary medicine, and palliative medicine records. Coordination of PET/CT. Additional care complexity code G2212 to investigate transition of care locally. 01/22/2024: Mojgan is here for 3-month follow-up while concurrently following with [facility] malignant hematology for Teclistamab BiTE therapy for [...] most recent note available for review from [facility] is from 11/18/2019 for discharge summary. She [...] that she received IVIG last week at [facility] which has been continued monthly. --Following her [...] current treatment course with Dr. Spears at [facility] hematology both through review of recent visit [...] 09/12/2023. She was treated with Paxlovid in [place] and has not resumed therapy since that [...] originally discussed potentially transitioning to Teclistamab in [place] but we are not an approved site [...] physical, lab review, review of current management [facility], and personal communication with her treating oncologist. 07/08/2023: [facility] He had discussed treatment optionswith her given her worsening cytopenias and generalized pain and fatigue. Possible by specific monoclonal antibody therapy versus CAR-T therapy. He also remarked that her prior bone marrow biopsy may have underestimated the degree ofher myeloma since it may have been performed at the site of prior radiation. Hewill be seeing her at [facility] this 07/23/2023 to evaluate her in person [...] care to Dr. Lindquist forfurther therapy at [facility]. It is possible that if she tolerates antibody treatment well that we may be able to transfer her therapy her low 35- minute follow-up for coordination of care with [facility]. 06/10/2023: Mojgan is unaccompanied today--scheduled to see [...] which she would need to [facility] at [facility]. F/u with me in 2 weeks--if persistent [...] about 3 to 4 weeks, possibly with lead c developer covering at that time. Patient expressed understanding. [...] follow-up as directed. Planning a trip to [place] on March 06, therefore we will hold [...] December 2020 to 60.2 in October 2021. [place] lambda ratio has also started to decline to 0.21 in October 2021. For now I'm continuing her daratumumab with Revlimid at current dosing, but I contacted Dr. Benavidez at [facility] for CAR-T celleligibility. If he has recommendations [...] and myeloma labs (follow quant immunoglobulins and [place]/Lambda light chain ratio with skeletal survey in 2 weeks so results available for appointment). 08/30/2021: Mojgan is here for 2-week follow-up for completion of her palliative radiation therapywith significant improvement of pain in her right hip and pelvis. We sent her for echocardiogram performed 08/23/[address] [facility] heart and vascular [place] as baseline for possible Kyprolis therapy. This returned with ejection fraction 60% which is normal with grade 1 left ventricular diastolic dysfunction and 1+ tricuspid valve regurgitation and trace to 1+ aortic valve regurgitation.Otherwise unremarkable. I discussed her case with Dr. Benavidez of malignant hematology at [facility]. He advised against Kyprolis therapy given her [...] spike). Slowly improving IgG to near normal. [place]/lambda light chain ratio normal with mildly increased [...] daughter) for cycle 8, week 2 followup [id number] mg/kg IV weekly, Dexamethasone 20mg weekly, and [...] symptoms--improving thrombocytopenia to 79,000 and improved leukopenia. 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 Still [...] her case with Dr. Piter Benavidez at [facility] malignant hematology for optimal regimen. The [...] request prior liver biopsy and records from [facility] liver clinic. The patient and her son (by telephone) expressed understanding and will follow- up as directed in 2 weeks for consent and likely start of therapy. --04/02/2020: Mojgan presents after infusion port placement at [facility] by interventional radiology due to platelet count [...] (for liver dysfunction) 0.7mg/m2 D1,D4,D8, D11, and Uhpubpxdefigq09gm IV weekly--repeat for every 3 week cycles [...] GERD, and fibromyalgia who was previouslyfollowed by [facility] [place] in [place] for chronic mild to moderate thrombocytopenia. She states that she was followed withDr. Kumari prior to his senior living and was told that she had an [...] The treatments were given with AP/PA vaz [id number] MV photons and MLC blocks. 3. Deferred [...] therapy versus CAR-Teligibility. 12. Teclistamab received at [facility]: She was admitted 08/04/2023 for Teclistamab ramp-up [...] IVIG 0.4 mg/kg every 3 months at [facility]--now monthly at -- Teclistamab on hold for [...] mg to start mid September 2024 at [facility]. --Previous doses held cycle 2-day 22 and [...] than 400 on labs late August at [facility]. no tx 10/2024. Nowreceiving at [facility]. Hepatocellular carcinoma: 2.6 centimeter right hepatic lobe liver lesion, scheduled for biopsy and microwave ablation with Dr. Calderon at [facility] 01/05/2025. Transfuse platelets greater than 50,000 for procedure. 12/29/2024: Leg pain bilaterally with labs showing recurrent iron deficiency anemia. Setting up Injectafer 750 mg IV x 2 doses over 2 weeks. 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 She has longstanding nonalcoholic steatohepatitiswith cirrhosis, followed by [facility] hepatology and [facility] gas troenterology. -- 11/16/2024: Normal AFP but new 2.5 cm segment 7 mass consistent with hepatocellular carcinoma. 01/05/2025 underwent biopsy and microwave ablation at interventional radiology. Also refractory hemorrhoid pain, too medically complex for procedure at [facility]. Sent to colorectal surgery for eval--treating with compounded suppositories, not surgical candidate. Cardiovascular: No Chest Pain, No Edema, No Palpitations, No Syncope. Recurrent A-fib followed by [facility] cardiology. Genitourinary: No Discharge, No Dysuria, [...] 14:50 03/15/25 Creatinine 0.99 mg/dL (0.60-1.20) 03/15/25 14:50 03/15/25 Glucose 130 mg/dL (70-100) H 03/15/25 14:50 03/15/25 Est GFR (CKD-EPI) > 60.0 mL/Min 03/15/25 14:50 03/15/25 Calcium 8.9 mg/dL (8.6-10.3) 03/15/25 14:50 03/15/25 Total Bilirubin 0.9 mg/dl (0.3-1.0) 03/15/25 14:50 03/15/25 AST 45 U/L (13-39) H 03/15/25 14:50 03/15/25 ALT 28 U/L (7-52) 03/15/25 14:50 03/15/25 Alkaline Phosphatase 171 U/L (34-104) H 03/15/25 14:50 5 Iron 102 ug/dL (50-212) 03/15/25 14:50 03/15/25 Iron Saturation 37.0 % (20-50) 03/15/25 14:50 03/15/25 Ferritin 454.3 ng/mL (11.0-306.8) H 03/15/25:03/02 Total Protein 6.1 gm/dL (6.4-8.9) L 03/15/25 [...] No Dictated By: Fabiola Marinelli MD DD/ 9 Signed By: <Electronically signed by MD Fabiola Marinelli> 03/16/25 1424 [facility] Work Phone: Progress note No data available for this section [facility] reason for referral (narrative)* Outpatient Procedure (Routine) - AuthorizedSpecialtyDiagnoses / ProceduresReferred By Contact Referred To [facility] Diagnoses Nonrheumatic aortic valve stenosis Aneurysm of ascending aorta without rupture (HCC) Procedures ECHO ECHO TTHRC R-T 2D W/WOM-MODE COMPL SPEC&[place] [address] [place] [address] [facility] [place] [address] [place] [address] Referral IDStatusReasonStart DateExpiration DateVisits RequestedVisits [id number] Auto-Generated Referral / * Outpatient Procedure (Routine) - New RequestSpecialtyDiagnoses / Procedures Referred By ContactReferred To [facility] Diagnoses Nonrheumatic aortic valve stenosis Aneurysm of ascending aorta without rupture (HCC) Procedures ECG COMPLETE ECG ROUTINE ECG W/LEAST 12 LDS W/I&[place] [address] [place] [address] [facility] [place] [address] [place] [address] Referral IDStatusReasonSt DateExpiration DateVisits RequestedVisits [id number] Request Auto-Generated Referral / [facility] (narrative)No reason for referral information availableMarietta Osteopathic Clinic Work Phone: Reason for visit Narrative* Consultation (Routine) - Pending ReviewSpecialtyDiagnoses / ProceduresReferred By ContactReferred To Contact Referral IDStatusReasonStart DateExpiration DateVisits RequestedVisits [id number] Review/ [facility] Work Phone: reason for visit Narrative* Consultation (Routine) - Pending ReviewSpecialtyDiagnoses / ProceduresReferred By ContactReferred To Contact Referral IDStatusReasonStart DateExpiration DateVisits RequestedVisits [id number] Review/ [facility] Work Phone: Renklh for visit Narrative* Imaging (Routine) - Pending ReviewSpecialtyDiagnoses / ProceduresReferred By ContactReferred To ContactRadiology Diagnoses Monoclonal gammopathy Liver cell carcinoma (Multi) Procedures Consult to Interventional Radiology Fabiola Marinelli MD [address] [place] [address] Phone: tel: fax: Referral IDStatusReasonStart DateExpiration DateVisits RequestedVisits [id number] Review Perform Procedure / [facility] Work Phone: reason for visit Narrative* Imaging (Routine) - AuthorizedSpecialtyDiagnoses / ProceduresReferred By ContactReferred To ContactRadiology Diagnoses Liver cell carcinoma (Multi) Procedures US guided needle liver biopsy Raman Nicholas, KEITH-BINDERY MACHINE SETTER [address] [facility] Department [place] [address] Phone: tel: fax: Referral IDStatusReasonStart DateExpiration DateVisits RequestedVisits [id number] Perform Procedure [facility] Work Phone: Reltzk for visit Narrative* Imaging (Routine) - AuthorizedSpecialtyDiagnoses / ProceduresReferred By ContactReferred To ContactRadiology Diagnoses Liver cell carcinoma (Multi) Procedures US guided RF ablation liver Raman Nicholas, KEITH-BINDERY MACHINE SETTER [address] [facility] [place] [address] Phone: tel: fax: Referral IDStatusReasonStart DateExpiration DateVisits RequestedVisits [id number] Perform Procedure [facility] Work Phone: reason for visit Narrative* Imaging (Routine) - AuthorizedSpecialtyDiagnoses / ProceduresReferred By ContactReferred To ContactRadiology Diagnoses Liver cell carcinoma (Multi) Procedures CT guided RF ablation liver Raman Nicholas, KEITH-BINDERY MACHINE SETTER [address] [facility] [place] [address] Phone: tel: fax: Referral IDStatusReasonStart DateExpiration DateVisits RequestedVisits [id number] Perform Procedure [facility] Work Phone: reason for visit Narrative* Imaging (Routine) - AuthorizedSpecialtyDiagnoses / ProceduresReferred By ContactReferred To ContactRadiology Diagnoses Liver cell carcinoma Procedures CT guided RF ablation liver Raman Nicholas, FIBRE TECHNOLOGIST-BINDERY MACHINE SETTER [address] [facility] [place] [address] Phone: tel: fax: Referral IDStatusReasonStart DateExpiration DateVisits RequestedVisits [id number] Perform Procedure [facility] Work Phone: Reason for visit Narrative* Imaging (Routine) - AuthorizedSpecialtyDiagnoses / ProceduresReferred By ContactReferred To ContactRadiology Diagnoses Liver cell carcinoma Procedures US guided RF ablation liver Raman Nicholas, FIBRE TECHNOLOGIST-BINDERY MACHINE SETTER [address] [facility] [place] [address] Phone: tel: fax: Referral IDStatusReasonStart DateExpiration DateVisits RequestedVisits [id number] Perform Procedure [facility] Work Phone: Summary Purpose Family History Relationship [...] Discussion Completed Decision Maker:* Patient Date ActivatedDate BhevyicufurQimkbeqt85/3/2023 12:24 AM08/13/2023 3:26 PM QuestionAnswerCommentsPlan of Care:* Code Status Discussion Completed Decision Maker:* Patient Date ActivatedDate SgslkaibumhScdezzhc88/3/2023 12:24 AM08/04/2023 12:24 AM QuestionAnswerCommentsPlan of Care:* Code Status Discussion Completed Decision Maker:* Patient Date ActivatedDate InactivatedComments11/18/2023 2:23 PMQuestionAnswerComments Plan of Care:* Code Status Discussion Completed Decision Maker:* Patient Date ActivatedDate TpiofgrlmhlExfpjgfw19/3/2023 12:24 AM08/13/2023 3:26 PM QuestionAnswerCommentsPlan of Care:* Code Status Discussion Completed Decision Maker:* Patient Date ActivatedDate ApzfeknwqkjVizjodbr17/3/2023 12:24 AM08/04/2023 12:24 AM QuestionAnswerCommentsPlan of Care:* [...] grossly normal anatomy Procedure performed by: me Cafe Operator(s): none Estimated Blood Loss (mL): none Specimen: no Informed Consent: written consent obtained Electronic Signatures: Morro Calderon) (Signed 22-Mar-2020 10:05) Authored: Pre-procedure Verification and Time Out, General Information, Signature/Cosignature/Attestation Last Updated: 22-Mar-2020 10:05 by Morro Calderon) Chief Complaint and Reason for Visit Chief [...] Myeloma Smoldering Myeloma Ref: Dr Marinelli, Chronic CoughReason for VisitRefractory chronic cough Bone [...] Myeloma Smoldering Myeloma Ref: Dr Marinelli, Chronic CoughReason for VisitRefractory chronic cough Bone [...] pain pain pain follow up inpt stay/cirrhosis 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: 3 mo f/u COPDReason for VisitAcute metabolic [...] pain pain pain follow up inpt stay/cirrhosis 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: 3 mo f/u COPD Patient here for [...] pain pain pain follow up inpt stay/cirrhosis 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: 3 mo f/u COPD Patient here for [...] pain pain pain follow up inpt stay/cirrhosis 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: 3 mo f/u COPD Patient here for [...] Chief Complaint follow up inpt stay/ cirrhosis 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: 3 mo f/u COPD Patient here for [...] Chief Complaint follow up inpt stay/ cirrhosis 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: 3 mo f/u COPD Patient here for [...] pain Multiple myeloma Chief Complaint Admit Date 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: 3 mo f/u COPD June 27, 2024 [...] 29 024 6:48am Degenerative cervical spinal stenosis [facility] 2023 6:48am Encounter for antineoplastic immunothera py June 29, 2024 6:48am Encounter for chemotherapy management [facility] 2023 6:48am Encounter for coordination of complex [...] 2024 6: 48am 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 [facility] 2023 6:48am Frontal sinusitis June 29, 2024 [...] 2024 9: 18am 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 [facility] 2023 9:18am 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 June 29, 2024 9:18am Cancer-related pain August 26, 2024 1 1:19am Multiple myeloma August 26, 2024 1 1:19am Liver cirrhosis secondary to KAPADIA (nonalcoholic steatohepatitis) September 14, 2024 9:39am Chief Complaint Admit Date 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: 3 mo f/u COPD June 27, 2024 [...] 2024 9:54am Degenerative cervical spinal stenosis No vember 2023 9:54am Encounter for antineoplastic immunothera py September [...] er 2023 9:54am Chief Complaint Admit Date 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: 3 mo f/u COPD June 27, 2024 [...] Diabetes mellitus September 15, 2024 9:54am Fibromyalgia November 14th, 2024 9:54am 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 September 15, 2024 9:54am Smoldering multiple myeloma (SMM) Novemb er 2023 9:54am Chief Complaint Admit Date 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: 3 mo f/u COPD June 27, 2024 [...] due to sequestration [place] 2023 9:18am Cancer-related pain August 26, 2024 [...] 2024 9:52am 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 No [id number] 9:52am Acute right hip pain September 15, [...] 2024 9:54am Encounter for chemotherapy management No 2023 9:54am Encounter for coordination of complex ca [...] 2 :50pm 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 De [id number] 2:50pm Chronic pain syndrome October 21 10:23am Multiple myeloma October 21, 2024 10:23am Acute right hip pain November 16, 2024 9:16am Hematuria November 16, 2024 9 :16am Acute thoracic back pain November 16, 2 025 9:16am Bone marrow hypocellularity November 9:16am Cancer-related pain November 16, 2024 9 :16am Chemotherapy-induced neutropenia November 16, 2024 9:16am Chronic copper deficiency November 16, 2024 9:16am Degenerative cervical spinal stenosis [facility] 2024 9:16am Encounter for antineoplastic immunothera py November 16, 2024 9:16am Encounter for chemotherapy management [facility] 2024 9:16am Encounter for coordination of complex ca re November 16, 2024 9:16am History of 2019 novel coronavirus diseas e (COVID-19) November 16, 2024 9:16am 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 November 16, 2024 9:16am Iron deficiency November 16, 2024 9 :16am Liver cirrhosis secondary to KAPADIA (nonalcoholic steatohepatitis) November 16, 2024 9:16am Multiple myeloma November 16, 2024 9 :16am Neutropenia, unspecified November 16, 2 025 9:16am Obesity November 16, 2024 9 :16am 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 [facility] 2024 9:16am Frontal sinusitis November 16, 2024 9 :16am Diabetes mellitus November 16, 2024 9 :16am Fibromyalgia November 16, 2024 9 :16am Smoldering multiple myeloma (SMM) Madyr y 2024 9:16am Abnormal liver ultrasound November 16, 2024 10:10am Refractory chronic cough November 16, 2 [...] due to sequestration Ja nuary 2024 10:10am Chief Complaint Admit Date 1 [...] 2 025 10:10am Refractory chronic cough November 16 2 025 10:10am Bone marrow hypocellularity November [...] December 08, 2024 1 :54pm Chemotherapy-induced neutropenia uar 2024 1:54pm Chronic copper deficiency December 08, 2024 1:54pm Degenerative cervical spinal stenosis Fe bruary 2024 1:54pm Encounter for antineoplastic immunothera py December 08, 2024 1:54pm Encounter for chemotherapy management Fe bruary 2024 1:54pm Encounter for coordination of complex ca re December 08, 2024 1:54pm History of 2019 novel coronavirus diseas e (COVID-19) December 08, 2024 1:54pm 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 December 08, 2024 1:54pm Iron deficiency December 08, 2024 1 :54pm Liver cirrhosis secondary to KAPADIA (nonalcoholic steatohepatitis) December 08, 2024 1:54pm Multiple myeloma December 08, 2024 1 :54pm Neutropenia, unspecified December 08, 2 025 1:54pm Obesity December 08, 2024 [...] 2024 11:13am [facility] 11:13am Encounter for antineoplastic immunothera py December 29, 2024 11:13am Encounter for chemotherapy management Fe bruary 2024 11:13am Encounter for coordination of complex [...] 2024 11:13am Smoldering multiple myeloma (SMM) Februa ry 2024 11:13am Chief Complaint Admit Date Follow Up November 16, 2024 1 0:10am abnormal ekg, sent by December 20, 2024 3:27pm Patient here for a 2 month f/u December 23, 2024 1:25pm Smoldering Myeloma January 31, 2025 7:44 am 5wk f/u February 03, 2025 10:3 2am Reason for Visit Admit Date Hemorrhoids, complicated November 16, 025 10:10am Hepatocellular carcinoma November 16, 025 [...] for Visit Admit Date Hemorrhoids, complicated November 16 025 10:10am Hepatocellular carcinoma November 16 025 10:10am Refractory chronic cough November 16 10:10am Bone marrow hypocellularity November 10:10am Cancer-related [...] myeloma March 16, 2025 7:47a m Nausea May 15th, 2025 7:47a m Bilateral leg pain March [...] 17, 2025 9:46am Bone marrow hypocellularity May 17, 2 025 9:46am Cancer-related pain May 17, 2025 9:46 [...] 2025 2:30pm Bone marrow hypocellularity May 18, 2 025 2:30pm Cancer-related pain May 18, 2025 [...] 2025 2:30pm Bone marrow hypocellularity May 18, 2 025 2:30pm Cancer-related pain May 18, 2025 [...] May 18, 2025 2:30 pm Diabetes mellitus Divya 17th, 2025 2:30 pm Fibromyalgia May 18, 2025 [...] 2025 9:02am Bone marrow hypocellularity May 30, 025 9:02am Cancer-related pain May 30, 2025 [...] Hemorrhoids, complicated June 15 9:29am Hepatocellular carcinoma Ames 14th, 20 25 9:29am Iron deficiency anemia June 15, 2025 [...] 2025 9: 29am 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 [facility] 2024 9:29am Acute right hip pain June 15, 2025 9 :58am Hematuria June 15, 2025 9: 58am Acute thoracic back pain June 15 9:58am Bone marrow hypocellularity June 15, 2025 9:58am Cancer-related pain June 15, 2025 9: 58am Chemotherapy-induced neutropenia June 15, 2025 9:58am Chronic copper deficiency June 15 9:58am Degenerative cervical spinal stenosis [facility] 2024 9:58am Encounter for antineoplastic immunothera py June 15, 2025 9:58am Encounter for chemotherapy management [facility] 2024 9:58am Encounter for coordination of complex [...] 2025 9: 58am 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 [facility] 2024 9:58am Frontal sinusitis June 15, 2025 [...] 2025 9: 29am 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 [facility] 2024 9:29am Acute right hip pain June 15, 2025 1 0:00am Hematuria June 15, 2025 10 :00am Acute thoracic back pain June 15 10:00am Bone marrow hypocellularity June 15, 2025 10:00am Cancer-related pain June 15, 2025 10 :00am Chemotherapy-induced neutropenia June 15, 2025 10:00am Chronic copper deficiency June 15, 025 10:00am Degenerative cervical spinal stenosis [facility] 2024 10:00am Encounter for antineoplastic immunothera py June 15, 2025 10:00am Encounter for chemotherapy management [facility] 2024 10:00am Encounter for coordination of complex [...] 2025 10 :00am 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 [facility] 2024 10:00am Frontal sinusitis June 15, 2025 [...] 9:14am rt side pain, vomiting July 19 11:40am Reason for Visit Admit Date Cancer [...] 2025 9:14am Smoldering multiple myeloma (SMM) Septem 2024 9:14am Cancer associated pain July 19, 025 9:55am Hepatocellular carcinoma July 19, 2025 9:55am Nausea July 19, 2025 9:55am Chief Complaint Admit Date E11.9 I71.20 D72.810 C22.0/see order May 10:24am [...] yancy 2024 9:29am Cancer associated pain July 19, [...] July 10:26am Degenerative cervical spinal stenosis Se ptember 2024 10:26am Encounter for antineoplastic immunothera py July 27, 2025 10:26am Encounter for chemotherapy management Se pt2024 10:26am Encounter for coordination of complex ca [...] 2025 10:26am Smoldering multiple myeloma (SMM) Septem sanjeev 2024 10:26am Chief Complaint Admit Date E11.9 I71.20 D72.810 C22.0/see order Ryan 2024 10:24am 6 month follow up May [...] August 16 7:42am Hepatocellular carcinoma August 16 025 7:42am Multiple myeloma August 16, 2025 7 [...] 2025 7:59am Encounter for chemotherapy management [facility] 2024 7:59am Encounter for coordination of complex [...] 7 :59am 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 [facility] 2024 7:59am Frontal sinusitis August 16, 2025 [...] atrial fibrillation (CMS/HCC) Hypersomnolence Procedures Polysomnography Letty Newsome, PARK MANAGER [address] [place] [address] Referral IDStatusReasonStart DateExpiration DateVisits RequestedVisits [id number] / ProceduresReferred By ContactReferred To ContactGeneral Surgery Diagnoses Bleeding hemorrhoids Procedures DC OFFICE/OUTPATIENT NEW HIGH MDM 60 MINUTES Letty Newsome, PARK MANAGER [address] [place] [address] Referral IDStatusReasonStart DateExpiration DateVisits RequestedVisits [id number] Review Specialty Services Required /[id number] / ProceduresReferred By ContactReferred To ContactCardiology Diagnoses Multiple myeloma not having achieved remission (CMS/HCC) Procedures Vascular US lower extremity venous duplex right Lisette Perkins, FIBRE TECHNOLOGIST-BINDERY MACHINE SETTER [address] [place] [address] Referral IDStatusReasonStart DateExpiration DateVisits RequestedVisits [id number] Review Perform Procedure Additional Source Comments INFORMATION SOURCE (unrecogn ized section and content) DATE CREATED AUTHOR 12/07/2019 [facility] DATE CREATED AUTHOR AUTHOR'S ORGANIZ ATION 03/17/2020 [email or web address] DATE CREATED AUTHOR AUTHOR'S ORGANIZ ATION 04/13/2020 [facility] DATE CREATED AUTHOR AUTHOR'S ORGANIZ ATION 08/02/2021 [facility] DATE CREATED AUTHOR AUTHOR'S ORGANIZ ATION 10/09/2021 [facility] DATE CREATED AUTHOR AUTHOR'S ORGANIZ ATION 08/08/2022 [facility] DATE CREATED AUTHOR AUTHOR'S ORGANIZ ATION 10/30/2022 [facility] DATE CREATED AUTHOR AUTHOR'S ORGANIZ ATION 08/07/2023 [facility] DATE CREATED AUTHOR AUTHOR'S ORGANIZ ATION 11/28/2024 [facility] DATE CREATED AUTHOR AUTHOR'S ORGANIZ ATION 06/15/2025 [facility] DATE CREATED AUTHOR AUTHOR'S ORGANIZ ATION 06/23/2025 [facility] DATE CREATED AUTHOR AUTHOR'S ORGANIZ ATION 07/07/2025 [facility] DATE CREATED AUTHOR AUTHOR'S ORGANIZ ATION 08/17/2025 [facility] DATE CREATED AUTHOR AUTHOR'S ORGANIZ ATION 08/19/2025 [facility] DATE CREATED AUTHOR AUTHOR'S ORGANIZ ATION 08/24/2025 [facility] EPIC Care Teams (unrecognized sec tion and content) Team Status: Active Member Role Status Dates Emely Pedersen DO Primary Care Provider Active Team Status: Inactive Member Role Status Dates Emely Pedersen DO Attending Provider Active S tart: May 17, 2025 End: May 17Jt [facility] ProviderActiveStart: May 17, 2025 End: May 17, [...] S tart: May 29, 2025 End: May 29atherine L Ly , DOAttending ProviderActiveStart: May 29, 2025 End: May 29, 2025 Team Status: Inactive Member Role Status Dates Emely Pedersen DO Primary Care Provider Active Start: May 30, 2025 End: May 30duran L Ly , DOAttending ProviderActiveStart: May 30, 2025 End: May 30, 2025 Team Status: Inactive Member Role Status Dates Katie Holder APRN Attending Provider Active Start: June 15, 2025 End: June 15, 2025Emely Pedersen , DOPrimary Care ProviderActiveStart: June 15, 2025 End: June 15, 2025 Team Status: Inactive Member Role Status Dates Fabiola Marinelli MD Attending Provider Active Start: June 15, 2025 End: June 15, 2025Emely Pedersen , DOPrimary Care ProviderActiveStart: June 15, 2025 End: June 15, 2025 Team Status: Active Member Role Status Dates Fabiola Marinelli MD Attending Provider Active Start: July 19, 2025 Fabiola Marinelli , MDReferring ProviderActiveStart: July 19, 2025 Emely Pedersen , [...] Start: July 19, 2025 End: July 19, 2025Pastephania Alba DOEmerchi st[address] [facility]cy ProviderActiveStart: July 19, 2025 End: July 19, 2025 Team Status: Active Member Role Status Jono Lopez MD Primary Care Provider Active S tart: April 20, 2025 Rene Carlson ProviderActiveStart: April 20, 2025 Katie Holder APRNOt ProviderActiveStart: April 20, 2025 Team Status: Inactive Member Role Status Dates Yinka Lopez MD Primary Care Provider Active S tart: April 20, 2025 End: April 20radha Marinelli MDAttending ProviderActiveStart: April 20, 2025 End: April 20, 2025 Team Status: Active Member Role Status Dates Katie Holder APRN Attending Provider Active Start: June 15, 2025 Emely Pedersen , DOPrimary Care ProviderActiveStart: June 15, 2025 Team Status: Active Member Role Status Dates Fabiola Marinelli MD Attending Provider Active Start: June 15, 2025 Fabiola Marinelli , MDReferring ProviderActiveStart: June 15, 2025 Judah Ferrara Care ProviderActiveStart: [...] S tart: November 04, 2023 End: November 04radha Palumbo , PARK MANAGER-CAttending ProviderActiveStart: November 04, 2023 End: November 04, [...] Care Provider Active Fabiola Marinelli , MDAttending ProviderActive Team Status: Inactive Member Role Status Dates Yinka Lopez MD Primary Care Provider Active Fabiola Palumbo , PARK MANAGER-CAttending ProviderActive Team Status: Inactive Member Role Status Dates Yinka Lopez MD Primary Care Provider Active Barbara Lima APRN PARK MANAGER-CAttending ProviderActiveTeam MemberRelationship SpecialtyStart DateEnd Date Yinka Lopez MD [address] [place] [address] PCP - [facility]01/22/15 Barbara Lima [address] [place] [address] [facility] [place]04/18/19Team MemberRelationshipSpecialtyStart DateEnd [facility] Yinka Lopez MD [address] [place] [address] PCP - [facility]01/22/15 Barbara Lima [address] [place] [address] [facility]erring[facility] [place]04/18/19 Team Status: Active Member Role Status Dates Yinka Lopez MD Primary Care Provider Active Stefani Escobar Jr, MDEmergency ProviderActiveKristarianna Ravi , DOAdmit Provider, Attending ProviderActive Team Status: Inactive Member Role Status Dates Yinka Lopez MD Primary Care Provider Active Stefani Escobar Jr, MDEmergency ProviderActiveCornelistarianna Ravi , DOAdmit ProviderActiveVicente Linton , Attending ProviderActiveFabiola Marinelli MDOther ProviderActive Team Status: Inactive Member Role Status Dates Yinka Lopez MD Primary Care Provider Active Frederick Ocamporkoko ProviderActiveTeam MemberRelationshipSpecialtyStart DateEnd [facility] Yinka Lopez MD [address] [address] PCP - General11/02/16 [place] [address] [place] [address] Consulting PhysicianHematology and Nslkwbfg86/2/23 Jessica Grove, chargemaster analyst CoordinatorCase Hpujjapvjw45/3/23 [place] [address] [place] [address] Consulting PhysicianHematology and Eicerolc92/3/23Team MemberRelationship SpecialtyStart DateEnd Date Yinka Lopez MD [address] [place] [address] PCP - General11/02/16 [place] [address] [place] [address] Consulting PhysicianHematology and Vpcbayem58/2/23 Jessica Grove RN Transitional Care CoordinatorCase Yfjpyxumru53/3/23 [place] [address] [place] [address] Consulting PhysicianHematology and Erpvsuoh44/3/23Team MemberRelationship SpecialtyStart DateEnd Date Yinka Lopez MD [address] [place] [address] PCP - General11/02/1709 [place] [address] [place] [address] Consulting PhysicianHematology and Vmfnwhnp57/2/23 Jessica Grove RN Transitional Care CoordinatorCase Hcjqbcljec09/3/23 [place] [address] [place] [address] Consulting PhysicianHematology and Hspqqsnu80/3/23Team MemberRelationship SpecialtyStart DateEnd Date Fabiola Marinelli MD [address] [place] [address] PCP - GeneralHematology and Jyqiexqp99/21/23 [place] [address] [place] [address] Consulting PhysicianHematology and Znxqdiel98/2/23 Jessica Grove, chargemaster analyst CoordinatorCase Tktztifyzp87/3/23 [place] [address] [place] [address] Consulting PhysicianHematology and Tbkovrui66/3/23 Team Status: Inactive Member Role Status Dates Yinka Lopez MD Primary Care Provider Active Vonnie Hewitt ProviderActiveTeam MemberRelationshipSpecialtyStart DateEnd Date Fabiola Marinelli MD [address] [place] [address] PCP - GeneralHematology and Gdrzafsi71/21/23 [place] PhD [address] [place] [address] Consulting PhysicianHematology and Xvqghyyv82/2/23 Jessica Grove, chargemaster analyst CoordinatorCase Rnuveutpuo72/3/23 [place] [address] [place] [address] Consulting PhysicianHematology and Cdcukeii44/3/23 Lisette Perkins, FIBRE TECHNOLOGIST-BINDERY MACHINE SETTER [address] [place] [address] Nurse PractitionerHematology and Ogtopiwc68/13/23Team MemberRelationship SpecialtyStart DateEnd Date Fabiola Marinelli MD [address] [place] [address] PCP - GeneralHematology and Jvjmuhnw07/21/23 [place] PhD [address] [place] [address] Consulting PhysicianHematology and Lbrcwqdy56/2/23 Jessica Grove RN Transitional Care CoordinatorCase Zbnyecizqt19/3/23 [place] [address] [place] [address] Consulting PhysicianHematology and Fzqkzqof36/3/23 Lisette Perkins, FIBRE TECHNOLOGIST-BINDERY MACHINE SETTER [address] [place] [address] Nurse PractitionerHematology and Wqzurkcz36/13/23Team MemberRelationship SpecialtyStart DateEnd Date Fabiola Marinelli MD [address] [place] [address] PCP - GeneralHematology and Mdsehnsp59/21/23 [place] PhD [address] [place] [address] Consulting PhysicianHematology and Yagkpakv41/2/23 Jessica Grove RN Transitional Care CoordinatorCase Tswjugadaj83/3/23 Lisette Perkins, FIBRE TECHNOLOGIST-BINDERY MACHINE SETTER [address] [place] [address] Nurse PractitionerHematology and Xkinzaxk34/13/23 [place] PhD [address] [place] [address] Consulting PhysicianHematology and Oncology11/18/23Team MemberRelationship SpecialtyStart DateEnd Date Fabiola Marinelli MD [address] [place], [place] [phone] PCP - GeneralHematology and Cwjylvom02/21/23 Sup[place] Lindquist [place] PhD [address] [place] [address] Consulting PhysicianHematology and Tszflasp24/2/23 Jessica Grove, chargemaster analyst CoordinatorCase Zawemrygqk45/3/23 Lisette Perkins, FIBRE TECHNOLOGIST-BINDERY MACHINE SETTER [address] [place], [place] [phone] Nurse PractitionerHematology and Lqervqsm38/13/23 Theresa Rom[place] PhD [address] [place] [address] Consulting PhysicianHematology and Oncology11/18/23Te MemberRelationship SpecialtyStart DateEnd Date Fabiola Marinelli MD [address] [place], [place] [phone] PCP - GeneralHematology and Pdxsggpj30/21/23 [place] PhD [address] [place] [address] Consulting PhysicianHematology and Iuyawmoo32/2/23 Jessica Grove, chargemaster analyst CoordinatorCase Srgmftzugt59/3/23 Lisette Perkins, FIBRE TECHNOLOGIST-BINDERY MACHINE SETTER [address] [place] [address] Nurse PractitionerHematology and Xoawpdsg84/13/23 Theresa Romano [place] PhD [address] [place] [address] Consulting PhysicianHematology and Oncology11/18/23Team MemberRelationship SpecialtyStart DateEnd Date Fabiola Marinelli MD [address] [phone] PCP - GeneralHematology and Zbyuuope48/21/23 [place] PhD [address] [place] [address] Consulting PhysicianHematology and Kietzdzl24/2/23 Jessica Grove RN Transitional Care CoordinatorCase Xculgddrcg15/3/23 Lisette Perkins, FIBRE TECHNOLOGIST-BINDERY MACHINE SETTER [address] [place] [address] Nurse PractitionerHematology and Ejtqkoaf99/13/23 [place] PhD [address] [place] [address] Consulting PhysicianHematology and Oncology11/18/23 Team Status: Inactive [...] S tart: January 21, 2024 End: January 20my Adina Marinelli ProviderActiveStart: January 21, 2024 End: January 21, 2024Team MemberRelationshipSpecialtyStart DateEnd Date Fabiola Marinelli MD [address] [place], [place] [phone] PCP - GeneralHematology and Lxyopmns56/21/23 Supa Lindquist MD PhD [address] [phone] Consulting PhysicianHematology and Xtonzqmf90/2/23 Jessica Grove, chargemaster analyst CoordinatorCase Yscxqsynxr46/3/23 Lisette Perkins, FIBRE TECHNOLOGIST-BINDERY MACHINE SETTER [address] [place], [place] [phone] Nurse PractitionerHematology and Jtrawuyx15/13/23 [place] PhD [address] [place], [place] [phone] Consulting PhysicianHematology and Oncology11/18/23 [place] PhD [address] [place], [place] [phone] Consulting PhysicianHematology and Oncology01/19/24 Team Status: Active Member Role Status Dates Yinka Lopez MD Primary Care Provider Active S tart: January 25, 2024 Fabiola Yves , MDAttending Provider, Referring ProviderActiveStart: January 25, 2024 Team Status: Inactive Member Role Status Dates Yinka Lopez MD Primary Care Provider Active S tart: February 11, 2024 End: February 11, 2024Lisette Perkins PARK MANAGER-CAttending ProviderActiveStart: February 11, 2024 End: February 11, 2024Team MemberRelationshipSpecialtyStart DateEnd Date Fabiola Marinelli MD [address] [place] [address] PCP - GeneralHematology and Ibqgkhur11/21/23 [place] PhD [address] [place] [address] Consulting PhysicianHematology and Msggydsb65/2/23 Jessica Grove, chargemaster analyst CoordinatorCase Bdvxkfqqic76/3/23 Lisette Perkins, FIBRE TECHNOLOGIST-BINDERY MACHINE SETTER [address] [place] [address] Nurse PractitionerHematology and Tfqxtiyf02/13/23 [place] PhD [address] [place] [address] Consulting PhysicianHematology and Oncology11/18/23 [place] PhD [address] [place] [address] Consulting PhysicianHematology and Oncology01/19/24Team MemberRelationship SpecialtyStart DateEnd Date Fabiola Marinelli MD [address] [place] [address] PCP - GeneralHematology and Byymxlht66/21/23 Sup[place]quist [place] PhD [address] [place] [address] Consulting PhysicianHematology and Voemyxja07/2/23 Jessica Grove RN Transitional Care CoordinatorCase Xaemrnzgzu13/3/23 Lisette Perkins, FIBRE TECHNOLOGIST-BINDERY MACHINE SETTER [address] [place] [address] Nurse PractitionerHematology and Lvecdwew95/13/23 [place] PhD [address] [place] [address] Consulting PhysicianHematology and Oncology11/18/23 [place] PhD [address] [place] [address] Consulting PhysicianHematology and Oncology01/19/24Team MemberRelationship SpecialtyStart DateEnd Date Fabiola Marinelli MD [address] [place], [place] [phone] PCP - GeneralHematology and Sxigyvjn03/21/23 [place] PhD [address] [place] [address] Consulting PhysicianHematology and Tclgflrw39/2/23 Jessica Grove, chargemaster analyst CoordinatorCase Leqrwjmzuz88/3/23 Lisette Perkins, FIBRE TECHNOLOGIST-BINDERY MACHINE SETTER [address] [place] [address] Nurse PractitionerHematology and Hlwgqnhl16/13/23 [place] PhD [address] [place] [address] Consulting PhysicianHematology and Oncology11/18/23 [place] PhD [address] [place] [address] Consulting PhysicianHematology and Oncology01/19/24 Team Status: Active Member Role Status Dates Yinka Lopez MD Primary Care Provider Active S tart: February 24, 2024 Fabiola Marinelli , MDAttending Provider, Referring ProviderActiveStart: February 24, 2024 Team Status: Active Member Role Status Dates Yinka Lopez MD Primary Care Provider Active S tart: February 29, 2024 Fabiola Marinelli , MDReferring Provider, Other ProviderActiveStart: February 29, 2024 Ritchie Mcmillan , MDAttending ProviderActiveStart: February 29, 2024 Team Status: Inactive Member Role Status Dates Yinka Lopez MD Primary Care Provider Active S tart: March 21, 2024 End: March 21, 2024Loyd Raymundo , DOAttending ProviderActiveStart: March 21, 2024 End: March 21, 2024 Team Status: Inactive Member Role Status Dates Yinka Lopez MD Primary Care Provider Active S tart: March 24, 2024 End: March 24, 2024Katie Holder APRNAtservando ProviderActiveStart: March 24, 2024 End: March 24, 2024 Team Status: Active Member Role Status Dates Ez Delgado MD Emergency Provider Active Star t: April 10, 2024 [facility] Care ProviderActiveStart: April 10, 2024 Vicente Linton , Janit Provider, Attending ProviderActiveStart: April 10, 2024 Team MemberRelationshipSpecialtyStart DateEnd Yinka Garner MD [address] [place] [address] PCP - GeneralFamily Medicine01/22/15 Janie Barbara ElvinKEITH [address] [place] [address] [facility]04/18/19 Team Status: Inactive Member Role Status Dates Ez Delgado MD Emergency Provider Active Star t: April 10, 2024 End: April 19lizz Lopez [facility] Care ProviderActiveStart: April 10, 2024 End: April 19, 2024Vicente Linton DOEwa ProviderActiveStart: April 10, 2024 End: April 19, 2024Timur Valadez MDOther ProviderActiveStart: April 10, 2024 End: April 19yudith Blancas MDOther ProviderActiveStart: April 10, 2024 End: April 19vika De La Cruz APRNOther ProviderActiveStart: April 10, 2024 End: April 19, 2024Stephanie Hardy MDOther ProviderActiveStart: April 10, 2024 End: April 19duran Sanchez , Other ProviderActiveStart: April 10, 2024 End: April 19, 2024Lakeisha Miller MDOther ProviderActiveStart: April 10, 2024 End: April 19Jeimy Hernandezending ProviderActiveStart: April 10, 2024 End: April 19, 2024 Team Status: Active Member Role Status Dates Ez Delgado MD Emergency Provider Active Star t: April 11, 2024 Yinka Lopez [facility] Care ProviderActiveStart: April 11, 2024 Vicente Linton DOAdmit ProviderActiveStart: April 11, 2024 Modesto Aquino MDOther ProviderActiveStart: April 11, 2024 Timur Valadez MDOther ProviderActiveStart: April 11, 2024 Real Blancas MDOther ProviderActiveStart: April 11, 2024 Mare Kiserher ProviderActiveStart: April 11, 2024 Stephanie Hardy MDOther ProviderActiveStart: April 11, 2024 Garcia Acacia Ly , DOOther ProviderActiveStart: April 11, 2024 Lakeisha Miller MDAttending Provider, Other ProviderActiveStart: April 11, 2024 Team Status: Active Member Role Status Dates Ez Delgado MD Emergency Provider Active Star t: April 11, 2024 SHANTELLE [facility] Care ProviderActiveStart: April 11, 2024 Vicente Linton , DOAdmit ProviderActiveStart: April 11, 2024 Modesto Aquino MDOther ProviderActiveStart: April 11, 2024 Timur Valadez MDOther ProviderActiveStart: April 11, 2024 Real Blancas MDOther ProviderActiveStart: April 11, 2024 Anish De La Cruz APRNOther ProviderActiveStart: April 11, 2024 Stephanie Hardy MDOther ProviderActiveStart: April 11, 2024 Garcia Acacia Ly , DOAttending Provider, Other ProviderActiveStart: April 11, 2024 Lakeisha Miller MDOther ProviderActiveStart: April 11, 2024 Ritchie Mcmillan MDOther ProviderActiveStart: April 11, 2024 Team Status: Active Member Role Status Dates Ez Delgado MD Emergency Provider Active Star t: April 11, 2024 SHANTELLE Niñorimary Care ProviderActiveStart: April 11, 2024 Vicente Linton DOAdmit ProviderActiveStart: April 11, 2024 Modesto Aquino MDOther ProviderActiveStart: April 11, 2024 Timur Valadez MDOther ProviderActiveStart: April 11, 2024 Real Blancas MDOther ProviderActiveStart: April 11, 2024 Anish De La Cruz , APRNOther ProviderActiveStart: April 11, 2024 Stephanie Hardy MDOther ProviderActiveStart: April 11, 2024 Garcia L Ly , DOOther ProviderActiveStart: April 11, 2024 Paulo Conner ProviderActiveStart: April 11, 2024 Ritchie Mcmillan MDAttending Provider, Other ProviderActiveStart: April 11, 2024 [...] Hardy MDOther ProviderActiveStart: April 13, 2024 Garcia L Ly , DOOther ProviderActiveStart: April 13, 2024 Lakeisha [...] Active Star t: April 18, 2024 SHANTELLE Niñorimary Care ProviderActiveStart: April 18, 2024 Vicente Linton , DOAdmit ProviderActiveStart: April 18, 2024 Timur Valadez MDOther ProviderActiveStart: April 18, 2024 Real Blancas MDOther ProviderActiveStart: April 18, 2024 Anish De La Cruz , APRNOther ProviderActiveStart: April 18, 2024 Stephanie Hardy MDOther ProviderActiveStart: April 18, 2024 Garcia L Ly , DOOther ProviderActiveStart: April 18, 2024 Lakeisha Miller MDAttending Provider, Other ProviderActiveStart: April 18, 2024 Hortensia Clinton MDOther ProviderActiveStart: April 18, 2024 Team Status: Active Member Role Status Dates Ez Delgado MD Emergency Provider Active Star t: April 11, 2024 End: April 19lizz Lopez MDPrimary Care ProviderActiveStart: April 11, 2024 End: April 19, 2024Jeferson Rose ProviderActiveStart: April 11, 2024 End: April 19, 2024Paulo Todd ProviderActiveStart: April 11, 2024 End: April 19, 2024Paulo Cooley ProviderActiveStart: April 11, 2024 End: April 19Paulo Chester ProviderActiveStart: April 11, 2024 End: April 19Zachary Luther ProviderActiveStart: April 11, 2024 End: April 19, 2024ImaPaulo Sears ProviderActiveStart: April 11, 2024 End: April 19atherine L Ly , DOOther ProviderActiveStart: April 11, 2024 End: April 19, 2024Micdagmar Miller MDAttending Provider, Other ProviderActive Start: April 11, 2024 End: April 19, 2024 Team Status: Active Member Role Status Dates Ez Delgado MD Emergency Provider Active Star t: April 11, 2024 End: April 19lizz Lopez , SHANTELLErimary Care ProviderActiveStart: April 11, 2024 End: April 19, 2024Jeferson Rose ProviderActiveStart: April 11, 2024 End: April 19, 2024Paulo Todd ProviderActiveStart: April 11, 2024 End: April 19, 2024Paulo Cooley ProviderActiveStart: April 11, 2024 End: April 19Paulo Chester ProviderActiveStart: April 11, 2024 End: April 19vika De La Cruz APRNOt ProviderActiveStart: April 11, 2024 End: April 19, 2024Paulo Rao ProviderActiveStart: April 11, 2024 End: April 19atherine L Ly , DOAttending Provider, Other ProviderActive Start: April 11, 2024 End: April 19, 2024Paulo Conner ProviderActiveStart: April 11, 2024 End: April 19Paulo Yanes ProviderActiveStart: April 11, 2024 End: April 19, 2024 Team Status: Active Member Role Status Dates Ez Delgado MD Emergency Provider Active Star t: April 11, 2024 End: April 19rijesus Lopez , MDPrimary Care ProviderActiveStart: April 11, 2024 End: April 19, 2024Jeferson Rose ProviderActiveStart: April 11, 2024 End: April 19, 2024Paulo Todd ProviderActiveStart: April 11, 2024 End: April 19, 2024Paulo Cooley ProviderActiveStart: April 11, 2024 End: April 19Paulo Chester ProviderActiveStart: April 11, 2024 End: April 19Mare Lutherher ProviderActiveStart: April 11, 2024 End: April 19, 2024Paulo aRo ProviderActiveStart: April 11, 2024 End: April 19duran Sanchez DOOther ProviderActiveStart: April 11, 2024 End: April 19, 2024Paulo Conner ProviderActiveStart: April 11, 2024 End: April 19karen Mcmillan MDAttending Provider, Other ProviderActiveStart: April 11, 2024 End: April 19, 2024 Team Status: Active Member Role Status Dates Ez Delgado MD Emergency Provider Active Star t: April 13, 2024 End: April 19rijesus Thomaster , MDPrimary Care ProviderActiveStart: April 13, 2024 End: April 19, 2024Jeferson Rose ProviderActiveStart: April 13, 2024 End: April 19, 2024Paulo Todd ProviderActiveStart: April 13, 2024 End: April 19, 2024Paulo Cooley ProviderActiveStart: April 13, 2024 End: April 19ameron J Ditty , MDOther ProviderActiveStart: April 13, 2024 End: April 19vika De La Cruz APRNOther ProviderActiveStart: April 13, 2024 End: April 19, 2024ImaPaulo Sears ProviderActiveStart: April 13, 2024 End: April 19marijaine L Ly , DOOther ProviderActiveStart: April 13, 2024 End: April 19, 2024Paulo Conner ProviderActiveStart: April 13, 2024 End: April 19Paulo Yanes ProviderActiveStart: April 13, 2024 End: April 19, 2024Belia Hernandez RNOther ProviderActiveStart: April 13, 2024 End: April 19, 2024Stchelle Gonzales MDOther ProviderActiveStart: April 13, 2024 End: April 19, 2024Gegrey Belcher MDAttending Provider, Other ProviderActiveStart: April 13, 2024 End: April 19, 2024Paulo Denny ProviderActiveStart: April 13, 2024 End: April 19, 2024 Team Status: Active Member Role Status Dates Ez Delgado MD Emergency Provider Active Star t: April 18, 2024 End: April 19lizz Lopez [facility] Care ProviderActiveStart: April 18, 2024 End: April 19, 2024Jeferson Rose ProviderActiveStart: April 18, 2024 End: April 19, 2024Timur Valadez MDOther ProviderActiveStart: April 18, 2024 End: April 19Paulo Chester ProviderActiveStart: April 18, 2024 End: April 19Zachary Luther ProviderActiveStart: April 18, 2024 End: April 19, 2024ImaPaulo Sears ProviderActiveStart: April 18, 2024 End: April 19duran L Ly , DOOther ProviderActiveStart: April 18, 2024 End: April 19, 2024Lakeisha Miller MDAttending Provider, Other ProviderActive Start: April 18, 2024 End: April 19jan Clinton MDOther ProviderActiveStart: April 18, 2024 End: April 19, 2024 Team Status: Inactive Member Role Status Dates Yinka Lopez MD Primary Care Provider Active S tart: May 30, 2024 End: May 30duran Sanchez , DOAttending ProviderActiveStart: May 30, 2024 End: May 30, 2024 Team Status: Inactive Member Role Status Dates Yinka Lopez MD Primary Care Provider Active S tart: June 27, 2024 End: June 27, 2024Loyd Raymundo , DOAttending ProviderActiveStart: June 27, 2024 End: June 27, [...] S tart: June 29, 2024 End: June 29radha Marinelli , MDAttending ProviderActiveStart: June 29, 2024 End: June 29, 2024 Team Status: Inactive Member Role Status Dates Yinka Lopez MD Primary Care Provider Active S tart: June 29, 2024 End: June 29, 2024Loyd Raymundo , DOAttending ProviderActiveStart: June 29, 2024 End: June 29, 2024Team MemberRelationshipSpecialtyStart DateEnd Date Yinka Lopez MD [address] [place] [address] [facility] - [facility] Medicine01/22/15 Barbara iLma APRN [address] [place] [address] ReferringBoston [facility] Medicine04/18/19 Team Status: Inactive Member Role Status Dates Yinka Lopez MD Primary Care Provider Active S tart: August 08, 2024 End: August 08, 2024Letty Newsome APRN PARK MANAGER-CAttending ProviderActive Start: August 08, 2024 End: August 08, 2024Team MemberRelationshipSpecialtyStart DateEnd Date Yinka Lopez MD [address] [place] [address] PCP - ACO Reach03/26/23 Yinka Lopez MD [address] [place] [address] PCP - GeneralFamily Medicine05/19/23 Fabiola Palumbo NP [address] [place] [address] Nurse PractitionerFamdly Medicine05/19/23 Letty Newsome NP [address] [place] [address] Nurse PractitionerPulmonary Disease05/19/23 Sima Paul, LES Registered NurseFamily Cnhchxzd78/23/23Team MemberRelationshipSpecialtyStart DateEnd Date Fabiola Marinelli MD [address] [place] [address] PCP - GeneralHematology and Ejimqrke21/21/23 [place] [address] [place] [address] Consulting PhysicianHematology and Dgloghuu64/2/23 Jessica Grove, chargemaster analyst CoordinatorCase Lhekratcau40/3/23 Lisette Perkins APRN-BINDERY MACHINE SETTER [address] [place] [address] Nurse PractitionerHematology and Tyzvdzeb27/13/23 [place] [address] [place] [address] Consulting PhysicianHematology and Oncology11/18/23 [place] [address] [place] [address] Consulting PhysicianHematology and Oncology01/19/24Team MemberRelationship SpecialtyStart DateEnd Date Yinka Lopez MD [address] [place] [address] PCP - ACO Reach03/26/23 Yinka Lopez MD [address] [place] [address] PCP - GeneralFamily Medicine05/19/23 Fabiola Palumbo NP [address] [place] [address] Nurse PractitionerFamily Medicine05/19/23 Letty Newsome NP [address] [place] [address] Nurse PractitionerPulmonary Disease05/19/23 Sima Paul, LES Registered NurseChi [facility] Hospital [place]08/24/23Team MemberRelationshipSpecialtyStart DateEnd Date Yinka Lopez MD [address] [place] [address] PCP - ACO Reach03/26/23 Yinka Lopez MD [address] [place] [address] PCP - General[facility] Medicine05/19/23 Fabiola Palumbo, PAMELLA [address] [place] [address] Nurse PractitionerFamdly Medicine05/19/23 Letty Newsome NP [address] [place] [address] Nurse PractitionerPulmonary Disease05/19/23 Sima Paul, LES Registered NurseChi Memorial Hospital [place]08/24/23Team MemberRelationshipSpecialtyStart DateEnd Date Yinka Lopez MD [address] [place] [address] PCP - ACO [facility]03/26/23 Yinka Lopez MD [address] [place] [address] PCP - GeneralChi [facility] Hospital [place]05/19/23 Fabiola Palumbo NP [address] [place] [address] Nurse PractitionerFawaltham hospital Medicine05/19/23 Letty Newsome PARK MANAGER [address] [place] [address] Nurse PractitionerPulmonary Disease05/19/23 Sima Paul, RN Registered NurseFamily Yjdfvzjk63/23/23 Team Status: Inactive Member Role Status Dates Yinka Lopez MD Primary Care Provider Active S tart: August 26, 2024 End: August 26, 2024Katie Holder APRNAtservando ProviderActiveStart: August 26, 2024 End: August 26, 2024 Team Status: Active Member Role Status Dates Yinka Lopez MD Primary Care Provider Active S tart: August 26, 2024 Fabiola Palumbo NP-CAttenpresley ProviderActiveStart: August 26, 2024 Team MemberRelationshipSpecialtyStart DateEnd Date Fabiola Marinelli MD [address] [place], [place] [id number] PCP - GeneralHematology and Vlorimtk57/21/23 Supa Lindquist MD PhD [address] [place] [phone] Consulting PhysicianHematology and Iuzqzdpe04/2/23 Jessica Grove, chargemaster analyst CoordinatorCase Pvwncfkukv69/3/23 Lisette Perkins, FIBRE TECHNOLOGIST-BINDERY MACHINE SETTER [address] [place] [address] Nurse PractitionerHematology and Rzilhbdf20/13/23 Theresa Romano MD PhD [address] [place] [phone] Consulting PhysicianHematology and Oncology11/18/23 [place]pps [place] PhD [address] [facility] [place] [address] Consulting PhysicianHematology and Oncology01/19/24 Team Status: Inactive Member Role Status Dates Yinka Lopez MD Primary Care Provider Active S tart: August 26, 2024 End: August 26my Deepali , PARK MANAGER-CAttending ProviderActiveStart: August 26, 2024 End: August 26, 2024 Team Status: Inactive Member Role Status Dates Yinka Lopez MD Primary Care Provider Active S tart: September 14, 2024 End: September 14atherine L Ly , DOAttending ProviderActiveStart: September 14, 2024 End: September 14, 2024 Team Status: Inactive Member Role Status Dates Yinka Lopez MD Primary Care Provider Active S tart: September 15, 2024 End: September 15my Yves , MDAttending ProviderActiveStart: September 15, 2024 End: September 15, [...] Date Yinka Lopez MD [address] [place] [address] PCP - ACO Reach03/26/23 Yinka Lopez MD [address] [place] [id number] PCP - GeneralFamily Medicine05/19/23 Fabiola Palumbo, PAMELLA [address] [place] [address] Nurse PractitionerFamdly Medicine05/19/23 Letty Newsome NP [address] [place] [address] Nurse PractitionerPulmonary Disease05/19/23 Sima Paul, RN Registered NurseChi Memorial Hospital [place]08/24/23Team MemberRelationshipSpecialtyStart DateEnd Date Yinka Lopez MD [address] [place] [id number] PCP - ACO Reach03/26/23 Yinka Lopez MD [address] [place] [address] PCP - [facility]05/19/23 Fabiola Palumbo, PAMELLA [address] [place] [address] Nurse PractitionerBoston [facility] Medicine05/19/23 Letty Newsome NP [address] [place] [address] Nurse PractitionerPulmonary Disease05/19/23 Sima Paul, RN Registered NurseChi Memorial Hospital [place]08/24/23Team MemberRelationshipSpecialtyStart DateEnd Date Yinka Lopez MD [address] [place] [address] PCP - ACO [facility]03/26/23 Yinka Lopez MD [address] [place] [address] [facility] - [facility] Centerly Medicine05/19/23 Fabiola Palumbo, PARK MANAGER [address] [place] [address] Nurse PractitionerFamdly Medicine05/19/23 Letty Newsome NP [address] [place] [address] Nurse PractitionerPulmonary Disease05/19/23 Sima Paul RN Registered NurseChi Memorial Hospital [place]08/24/23Team MemberRelationshipSpecialtyStart DateEnd Date Yinka Lopez MD [address] [place] [address] PCP - O [facility]03/26/23 Yinka Lopez MD [address] [place] [address] PCP - [facility]05/19/23 Fabiola Palumbo PARK MANAGER [address] [place] [address] Nurse PractitionerFawaltham hospital Medicine05/19/23 Letty Newsome NP [address] [place] [address] Nurse PractitionerPulmonary Disease05/19/23 Sima Paul, LES Registered NurseFamily Mxuygplm04/23/23Team MemberRelationshipSpecialtyStart DateEnd Date Fabiola Marinelli MD [address] [place] [address] PCP - GeneralHematology and Uomsiayx63/21/23 [place]quist [place] PhD [address] [place] [address] Consulting PhysicianHematology and Ludabfpv56/2/23 Jessica Grove, chargemaster analyst CoordinatorCase Znkdmejpvo86/3/23 Lisette Perkins, FIBRE TECHNOLOGIST-BINDERY MACHINE SETTER [address] [place] [address] Nurse PractitionerHematology and Tqdadlwi18/13/23 [place] PhD [address] [place] [address] Consulting PhysicianHematology and Oncology11/18/23 [place] PhD [address] [place] [address] Consulting PhysicianHematology and Oncology01/19/24Team MemberRelationship SpecialtyStart DateEnd Date Fabiola Marinelli MD [address] [place] [address] PCP - GeneralHematology and Pagljfmy32/21/23 Sup[place] Lindquist [place] PhD [address] [place] [address] Consulting PhysicianHematology and Xlavbxwv77/2/23 Jessica Grove RN Transitional Care CoordinatorCase Wqtuvwdxny04/3/23 Lisette Perkins, FIBRE TECHNOLOGIST-BINDERY MACHINE SETTER [address] [place] [address] Nurse PractitionerHematology and Syjiutfe02/13/23 [place] PhD [address] [place] [address] Consulting PhysicianHematology and Oncology11/18/23 [place] Epps [place] PhD [address] [place] [address] Consulting PhysicianHematology and Oncology01/19/24Team MemberRelationship SpecialtyStart DateEnd Date Fabiola Marinelli MD [address] [place], [place] [id number] PCP - GeneralHematology and Oshcdljn55/21/23 Sup[place]quist [place] PhD [address] [place] [address] Consulting PhysicianHematology and Lgskafsu36/2/23 Jessica Grove, chargemaster analyst CoordinatorCase Pisdxiomru12/3/23 Lisette Perkins, FIBRE TECHNOLOGIST-BINDERY MACHINE SETTER [address] [place] [address] Nurse PractitionerHematology and Swnkfnst74/13/23 Theresa Romano [place] PhD [address] [place] [address] Consulting PhysicianHematology and Oncology11/18/23 Negro Epps [place] PhD [address] [place] [address] Consulting PhysicianHematology and Oncology01/19/24Team MemberRelationship SpecialtyStart DateEnd Date Yinka Lopez MD [address] [place] [address] PCP - ACO Reach03/26/23 Yinka Lopez MD [address] [place] [address] PCP - GeneralFamdly Medicine05/19/23 Fabiola Palumbo, PARK MANAGER [address] [place] [address] Nurse PractitionerFamily Medicine05/19/23 Letty Newsome NP [address] [place] [address] Nurse PractitionerPulmonary Disease05/19/23 Sima Paul, LES Registered NurseFamily Rgnandtw96/23/23Team MemberRelationshipSpecialtyStart DateEnd Date Yinka Lopez MD [address] [place] [address] PCP - [facility]03/26/23 Yinka Lopez MD [address] [place] [address] PCP - GeneralFamdly Medicine05/19/23 Fabiola Palumbo, PARK MANAGER [address] [place] [address] Nurse PractitionerFamily Medicine05/19/23 Letty Newsome NP [address] [place] [address] Nurse PractitionerPulmonary Disease05/19/23 Sima Paul, RN Registered NurseFamdly Ypsnbbrz50/23/23Team MemberRelationshipSpecialtyStart DateEnd Date Yinka Lopez MD [address] [place] [id number] PCP - ACO Reach03/26/23 Yinka Lopez MD [address] [place] [id number] PCP - Generalmily Medicine05/19/23 Fabiola Palumbo NP [address] [place] [phone] Nurse PractitionerFamdly Medicine05/19/23 Letty Newsome NP [address] [place] [address] Nurse PractitionerPulmonary Disease05/19/23 Sima Paul, RN Registered NurseChi Memorial Hospital [place]08/24/23 Team Status: Inactive Member Role Status Dates Yinka Lopez MD Primary Care Provider Active S tart: October 05, 2024 End: October 05Adina Tsai ProviderActiveStart: October 05, 2024 End: October 05, 2024 Team Status: Inactive Member Role Status Dates Yinka Lopez MD Primary Care Provider Active S tart: October 21, 2024 End: October 21, 2024Katie Holder Rene ProviderActiveStart: October 21, 2024 End: October 21, 2024 Team Status: Inactive Member Role Status Dates Yinka Lopez MD Primary Care Provider Active S tart: October 24, 2024 End: October 24duran Roger Ly , DOAttending ProviderActiveStart: October 24, 2024 End: October 24, 2024 Team Status: Active Member Role Status Dates Yinka Lopez MD Primary Care Provider Active S tart: November 16, 2024 Fabiola Marinelli MDAttending Provider, Referring ProviderActiveStart: November 16, 2024 Team Status: Inactive Member Role Status Dates Yinka Lopez MD Primary Care Provider Active S tart: November 16, 2024 End: November 16radha Marinelli MDAttstanley ProviderActiveStart: November 16, 2024 End: November 16, 2024Team MemberRelationshipSpecialtyStart DateEnd Date Yinka Lopez MD [address] [place] [address] PCP - ACO Reach03/26/23 Yinka Lopez MD [address] [place] [address] PCP - GeneralFamily Medicine05/19/23 Fabiola Palumbo NP [address] [place] [address] Nurse PractitionerFamily Medicine05/19/23 Letty Newsome NP [address] [place] [address] Nurse PractitionerPulmonary Disease05/19/23 Sima Paul, LES Registered Nursemily Cerqouka60/23/23Team MemberRelationshipSpecialtyStart DateEnd Date Fabiola Marinelli MD [address] [place] [address] PCP - GeneralHematology and Nzjepfln87/21/23 Supa Lindquist [place] PhD [address] [place] [address] Consulting PhysicianHematology and Adiexaom06/2/23 Jessica Grove, chargemaster analyst CoordinatorCase Bckarijvxr68/3/23 Lisette Perkins, FIBRE TECHNOLOGIST-BINDERY MACHINE SETTER [address] [place] [phone] Nurse PractitionerHematology and Iugxxjvv99/13/23 Theresa Romano [place] PhD [address] [place] [address] Consulting PhysicianHematology and Oncology11/18/23 [place]pps [place] PhD [address] [place] [address] Consulting PhysicianHematology and Oncology01/19/24Team MemberRelationship SpecialtyStart DateEnd Date Yinka Lopez MD [address] [place] [id number] PCP - ACO Reach03/26/23 Yinka Lopez MD [address] [place] [phone] PCP - GeneralFamily Medicine05/19/23 Fabiola Palumbo, PARK MANAGER [address] [place] [address] Nurse PractitionerFamily Medicine05/19/23 Letty Newsome PARK MANAGER [address] [place] [address] Nurse PractitionerPulmonary Disease05/19/23 Sima Paul, LES Registered NurseFamily Yxqejkbt69/23/23Team MemberRelationshipSpecialtyStart DateEnd Date Fabiola Marinelli MD [address] [place] [address] PCP - GeneralHematology and Hczvcdrm05/21/23 Supa Lindquist MD PhD [address] [place] [phone] Consulting PhysicianHematology and Jkxyxixu93/2/23 Jessica Grove, chargemaster analyst CoordinatorCase Wnwjiznemf84/3/23 Lisette Perkins, FIBRE TECHNOLOGIST-BINDERY MACHINE SETTER [address] [place] [address] Nurse PractitionerHematology and Rteowbaz69/13/23 Theresa Romano [place] PhD [address] [place], [place] [phone] Consulting PhysicianHematology and Oncology11/18/23 [place] PhD [address] [place], [place] [phone] Consulting PhysicianHematology and Oncology01/19/24Team MemberRelationship SpecialtyStart DateEnd Date Yinka Lopez MD [address] [place] [address] PCP - ACO [facility]03/26/23 Yinka Lopez MD [address] [place] [address] PCP - Generalmily Medicine05/19/23 Fabiola Palumbo, PARK MANAGER [address] [place] [address] Nurse PractitionerBoston [facility] Medicine05/19/23 Letty Newsome NP [address] [place] [address] Nurse PractitionerPulmonary Disease05/19/23 Sima Paul RN Registered NurseChi Memorial Hospital [place]08/24/23Team MemberRelationshipSpecialtyStart DateEnd Date Yinka Lopez MD [address] [place] [address] PCP - ACO [facility]03/26/23 Yinka Lopez MD [address] [place] [address] PCP - [facility]05/19/23 Fabiola Palumbo, PARK MANAGER [address] [place] [address] Nurse PractitionerBoston [facility] Medicine05/19/23 Letty Newsome PARK MANAGER [address] [place] [address] Nurse PractitionerPulmonary Disease05/19/23 Sima Paul RN Registered NurseBuchanan County Health Centerly Pqfvwvos68/23/23 Team Status: Active Member Role Status Dates Yinka Lopez MD Primary Care Provider Active S tart: December 08, 2024 Fabiola Marinelli MDAttatrium [facility] Provider, Referring ProviderActiveStart: December 08, 2024 Team Status: Inactive Member Role Status Dates Yinka Lopez MD Primary Care Provider Active S tart: December 20, 2024 End: December 20, 2024Vonnie Ocampo ProviderActiveStart: December 20, 2024 End: December 20, 2024 Team Status: Inactive Member Role Status Dates Yinka Lopez MD Primary Care Provider Active S tart: December 23, 2024 End: December 23, 2024Rene Carlson ProviderActiveStart: December 23, 2024 End: December 23, 2024Team MemberRelationshipSpecialtyStart DateEnd Date Yinka Lopez MD [address] [place] [address] PCP - ACO Reach03/26/23 Yinka Lopez MD [address] [place] [address] PCP - GeneralFamdly Medicine05/19/23 Fabiola Palumbo NP [address] [place] [address] Nurse PractitionerFamily Medicine05/19/23 Letty Newsome NP [address] [place] [address] Nurse PractitionerPulmonary Disease05/19/23 Sima Paul, RN Registered NurseBoston [facility] Center Ccvnfufz06/23/23 Team Status: Inactive Member Role Status Dates [...] Date Yinka Lopez MD [address] [place] [address] PCP - ACO Reach03/26/23 Yinka Lopez MD [address] [place] [phone] PCP - GeneralFamily Medicine05/19/23 Fabiola Palumbo, PARK MANAGER [address] [place] [phone] Nurse PractitionerFamily Medicine05/19/23 Letty Newsome NP [address] [place] [address] Nurse PractitionerPulmonary Disease05/19/23 Sima Paul RN Registered NurseFamily Xsgijlve33/23/23Team MemberRelationshipSpecialtyStart DateEnd Date Fabiola Marinelli MD [address] [place] [address] PCP - GeneralHematology and Tblexkhp07/21/23 Sup[place] Lindquist [place] PhD [address] [place] [address] Consulting PhysicianHematology and Hotblscz32/2/23 Jessica Grove, chargemaster analyst CoordinatorCase Otiqwkckay08/3/23 Lisette Perkins, FIBRE TECHNOLOGIST-BINDERY MACHINE SETTER [address] [place] [address] [place] [address] Nurse PractitionerHematology and Dswyuggk31/13/23 Theresa Romano [place] PhD [address] [place] [address] Consulting PhysicianHematology and Oncology11/18/23 [place]pps [place] PhD [address] [place] [address] Consulting PhysicianHematology and Oncology01/19/24Team MemberRelationship SpecialtyStart DateEnd Date Yinka Lopez MD [address] [place] [address] PCP - ACO Reach03/26/23 Yinka Lopez MD [address] [place] [address] PCP - GeneralFamily Medicine05/19/23 Letty Newsome PARK MANAGER [address] [place] [address] Nurse PractitionerPulmonary Disease05/19/23 Sima Paul RN Registered NurseFamily Pgidtfrn19/23/23Team MemberRelationshipSpecialtyStart DateEnd Date Yinka Lopez MD [address] [place] [address] PCP - ACO Reach03/26/23 Yinka Lopez MD [address], [facility] - [facility]05/19/23 Letty Newsome, PARK MANAGER [address] [place] [address] Nurse PractitionerPulmonary Disease05/19/23 Sima Paul, RN Registered NurseBoston [facility] Fuuxdfdu96/23/23Team MemberRelationshipSpecialtyStart DateEnd Date Yinka Lopez MD [address] [place] [address] PCP - ACO Reach03/26/23 Yinka Lopez MD [address] [place] [address] PCP - [facility] Medicine05/19/23 Letty Newsome, PARK MANAGER [address] [place] [address] Nurse PractitionerPulmonary Disease05/19/23 Sima Paul, RN [facility] [place]08/24/23 Team Status: Active Member Role Status Dates [...] Yinka Lopez MD [address] [place] [address] PCP - ACO [facility]03/26/23 Yinka Lopez MD [address] [place] [address] PCP - GeneralFami Medicine05/19/23 Letty Newsome PARK MANAGER [address] [place] [address] Nurse PractitionerPulmonary Disease05/19/23 Sima Paul RN Registered NurseFamily Awuewkcu29/23/23Team MemberRelationshipSpecialtyStart DateEnd Date Yinka Lopez MD [address] [place] [address] PCP - ACO [facility]03/26/23 Yinka Lopez MD [address] [place] [address] PCP - GeneralFamily Medicine05/19/23 Letty Newsome NP [address] [place] [address] Nurse PractitionerPulmonary Disease05/19/23 Sima Paul, RN [facility]08/24/23Te MemberRelationshipSpecialtyStart DateEnd Date Yinka Lopez MD [address] [place] [address] PCP - ACO [facility]03/26/23 Yinka Lopez MD [address] [place] [address] PCP - [facility]05/19/23 Letty Newsome, PARK MANAGER [address] [place] [address] Nurse PractitionerPulmonary Disease05/19/23 Sima Paul, RN [facility]08/24/23Te MemberRelationshipSpecialtyStart DateEnd Date Yinka Lopez MD [address] [place] [address] PCP - O [facility]03/26/23 Yinka Lopez MD [address] [place] [address] PCP - [facility]05/19/23 Letty Newsome, PARK MANAGER [address] [place] [address] Nurse PractitionerPulmonary Disease05/19/23 Sima Paul, RN [facility]08/24/23Te MemberRelationshipSpecialtyStart DateEnd Date Yinka Lopez MD [address] [place] [address] PCP - ACO [facility]03/26/23 Yinka Lopez MD [address] [place] [address] [facility] - [facility] [place]05/19/23 Letty Newsome NP [address] [place] [address] Nurse PractitionerPulmonary Disease05/19/23 Sima Paul RN Registered NurseFamily Cpjferxf14/23/23 Team Status: Active Member Role Status Dates Yinka Lopez MD Primary Care Provider Active S tart: March 16, 2025 Cornelio [facility] ProviderActiveStart: March 16, 2025 Team Status: Inactive [...] Date Yinka Lopez MD [address] [place] [address] PCP - ACO [facility]03/26/23 Yinka Lopez MD [address] [place] [address] [facility] - [facility] [place]05/19/23 Letty Newsome PARK MANAGER [address] [place] [address] Nurse PractitionerPulmonary Disease05/19/23 Sima Paul, RN [facility]08/24/23Team MemberRelationshipSpecialtyStart DateEnd Date Yinka Lopez MD [address], [place] [id number] PCP - [facility]03/26/23 Yinka Lopez MD [address] [place] [address] PCP - [facility] Medicine05/19/23 Letty Newsome, PARK MANAGER [address] [place] [address] Nurse PractitionerPulmonary Disease05/19/23 Sima Paul RN [facility]08/24/23Te MemberRelationshipSpecialtyStart DateEnd Date Yinka Lopez MD [address] [place] [address] PCP - [facility]03/26/23 Yinka Lopez MD [address], [place] [address] PCP - [facility] Medicine05/19/23 Letty Newsome NP [address] [place] [address] Nurse PractitionerPulmonary Disease05/19/23 Sima Paul RN Registered NurseChi [facility] [place]08/24/23Team MemberRelationshipSpecialtyStart DateEnd Date Yinka Lopez MD [address] [place] [address] PCP - ACO [facility]03/26/23 Yinka Lopez MD [address] [place] [address] PCP - [facility]05/19/23 Letty Newsome, PARK MANAGER [address] [place] [address] Nurse PractitionerPulmonary Disease05/19/23 Sima Paul, LES Registered NurseChi [facility] [place]08/24/23Te MemberRelationshipSpecialtyStart DateEnd Date Yinka Lopez MD [address] [place] [address] PCP - O [facility]03/26/23 Yinka Lopez MD [address] [place] [address] PCP - [facility]05/19/23 Letty Newsome, PARK MANAGER [address] [place] [address] Nurse PractitionerPulmonary Disease05/19/23 Sima Paul, RN Registered NurseChi [facility] [place]08/24/23Te MemberRelationshipSpecialtyStart DateEnd Date Yinka Lopez MD [address] [place] [address] PCP - ACO [facility]03/26/23 Yinka Lopez MD [address] [place] [address] PCP - [facility] Medicine05/19/23 Letty Newsome, PARK MANAGER [address] [place] [address] Nurse PractitionerPulmonary Disease05/19/23 Sima Paul RN [address] [place] [address] Registered [facility]08/24/23Team MemberRelationshipSpecialtyStart DateEnd Date Yinka Lopez MD [address] [place] [address] PCP - [facility] Medicine01/22/15 Barbara Lima APRN [address] [place] [address] [facility]04/18/19Team MemberRelationshipSpecialtyStart DateEnd Date Yinka Lopez MD [address] [place] [address] PCP - ACO [facility]03/26/23 Emely Pedersen DO [address] [place] [address] PCP - [facility] Medicine04/25/25 Sima Paul, LES [address] [place] [address] Registered NurseChi [facility] [place]08/24/23Te MemberRelationshipSpecialtyStart DateEnd Date Yinka Lopez MD [address] [place] [address] PCP - ACO [facility]03/26/23 Emely Pedersen DO [address] [place] [address] PCP - [facility]04/25/25 Sima Paul RN [address] [place] [address] Registered [facility] [place]08/24/23Te MemberRelationshipSpecialtyStart DateEnd Date Yinka Lopez MD [address], [facility] PCP - O [facility]03/26/23 Emely Pedersen DO [address] [place] [address] PCP - [facility]04/25/25 Sima Paul RN [address] [place] [address] Registered [facility] [place]08/24/23Te MemberRelationshipSpecialtyStart DateEnd Date Yinka Lopez MD [address] [place] [address] PCP - ACO [facility]03/26/23 Emely Pedersen DO [address] [place] [address] PCP - [facility]04/25/25 Sima Paul RN [address] [place] [address] Registered [facility] [place]08/24/23 Team Status: Active Member Role Status Dates Yinka Lopez MD Primary Care Provider Active S tart: May 17, 2025 Fabiola Marinelli , MDAttending ProviderActiveStart: May 17, 2025 Fabiola Yves , MDReferring ProviderActiveStart: May 17, 2025 Team Status: Inactive Member Role Status Dates Yinka Lopez MD Primary Care Provider Active S tart: May 18, 2025 End: May 18, 2025Katie Holder APRNAtservando ProviderActiveStart: May 18, 2025 End: May 18, 2025 Team Status: Active Member Role Status Dates Yinka Lopez MD Primary Care Provider Active S tart: May 18, 2025 Fabiola Yves , MDAttending ProviderActiveStart: May 18, 2025 Fabiola Yves , MDReferring ProviderActiveStart: May 18, 2025 Team Status: Active Member Role Status Dates Fabiola Marinelli MD Attending Provider Active Start: May 30, 2025 Fabiola Marinelli , MDReferring ProviderActiveStart: May 30, 2025 Judah Ferrara [facility] ProviderActiveStart: May 30, 2025 Team MemberRelationshipSpecialtyStart DateEnd Date Yinka Lopez MD [address] [place] [address] PCP - ACO [facility]03/26/23 Emely Pedersen DO [address] [address] [place] [address] PCP - [facility]04/25/25 Sima Paul RN [address] [place] [address] Registered [facility] [place]08/24/23Team MemberRelationshipSpecialtyStart DateEnd Yinka Lopez MD [address] [place] [address] PCP - ACO [facility]03/26/23 Emely Pedersen DO [address] [place] [address] PCP - [facility] Medicine04/25/25 Sima Paul RN [address] [place] [address] Registered [facility] [place]08/24/23Te MemberRelationshipSpecialtyStart DateEnd Yinka Lopez MD [address], [facility] PCP - ACO [facility]03/26/23 Emely Pedersen DO [address] [place] [address] PCP - [facility]04/25/25 Sima Paul RN [address] [place] [address] Registered [facility] [place]08/24/23Te MemberRelationshipSpecialtyStart DateEnd Date Yinka Lopez MD [address] [place] [address] PCP - ACO [facility]03/26/23 Emely Pedersen DO [address] [place] [address] PCP - GeneralFamily Medicine04/25/25 Sima Paul, LES [address] [place] [address] Registered [facility] [place]08/24/23Te MemberRelationshipSpecialtyStart DateEnd Date Yinka Lopez MD [address] [place] [id number] PCP - ACO [facility]03/26/23 Emely Pedersen DO [address] [place] [address] PCP - [facility]04/25/25 Sima Paul RN [address] [place] [address] Registered [facility] [place]08/24/23Te MemberRelationshipSpecialtyStart DateEnd Date Yinka Lopez MD [address] [place] [id number] PCP - ACO [facility]03/26/23 Emely Pedersen DO [address] [place] [address] PCP - [facility]04/25/25 Sima Paul RN [address] [place] [address] Registered [facility] [place]08/24/23Te MemberRelationshipSpecialtyStart DateEnd Date Emely Pedersen DO [address] [place] [facility] PCP - GeneralFamily Medicine05/09/25 [place]quist [place] PhD [address] [place] [address] Consulting PhysicianHematology and Mycukpue71/2/23 Jessica Grove RN Transitional Care CoordinatorCase Wjfalhximb94/3/23 Lisette Perkins, FIBRE TECHNOLOGIST-BINDERY MACHINE SETTER Nurse PractitionerHematology and Bqhgicmk59/13/23 Theresa Romano MD PhD [address] [place] [address] Consulting PhysicianHematology and Oncology11/18/23 Negro Epps MD PhD [address] [place] [address] Consulting PhysicianHematology and Oncology01/19/24Team MemberRelationship SpecialtyStart DateEnd Date Emely Pedersen DO [address] [place] [address] PCP - [facility] Medicine05/09/25 Supa Lindquist MD PhD [address] [place] [address] Consulting PhysicianHematology and Mdwhugul88/2/23 Jessica Grove RN Transitional Care CoordinatorCase Mhrfmvjdiu14/3/23 Lisette Perkins, FIBRE TECHNOLOGIST-BINDERY MACHINE SETTER Nurse PractitionerHematology and Sbdckdnr92/13/23 Theresa [place] MD PhD [address] [place] [address] Consulting PhysicianHematology and Oncology11/18/23 [place]pps [place] PhD [address] [place] [address] Consulting PhysicianHematology and Oncology01/19/24 Team Status: Active Member Role Status Dates Emely Pdeersen DO Primary Care Provider Active Start: July 19, 2025 Rene Carlson ProviderActiveStart: July 19, 2025 Team Status: Inactive Member Role Status Dates Emely Pedersen DO Primary Care Provider Active Start: July 27, 2025 End: July 27radha Marinelli MDAttending ProviderActiveStart: July 27, 2025 End: July 27, 2025 Team Status: Active Member Role Status Dates Fabiola Marinelli MD Attending Provider Active Start: July 27, 2025 Fabiola Marinelli MDReferring ProviderActiveStart: July 27, 2025 ZORAIDA [facility] Care ProviderActiveStart: July 27, 2025 Team MemberRelationshipSpecialtyStart DateEnd Date Yinka Lopez MD [address] [place] [id number] PCP - [facility]03/26/23 Emely Pedersen DO [address] [place] [address] [place] [address] PCP - GeneralFamily Medicine04/25/25 Sima Paul, LES [address] [place] [address] Registered NurseFamily Htyxwdmr59/23/23Team MemberRelationshipSpecialtyStart DateEnd Date iYnka Lopez MD [address] [place] [address] PCP - [facility]03/26/23 Emely Pedersen DO [address] [place] [address] PCP - [facility]04/25/25 Sima Paul RN [address] [place] [address] [facility]istered [facility] [place]08/24/23 Team Status: Active Member Role Status Dates Fabiola Marinelli MD Attending Provider Active Start: August 09, 2025 AMOR Rubalcavaeferring ProviderActiveStart: August 09, 2025 Judah Ferrara Care ProviderActiveStart: August 09, 2025 Team Status: Inactive Member Role Status Dates Emely Pedersen DO Primary Care Provider Active Start: August 09, 2025 End: August 09, 2025Rene Carslon ProviderActiveStart: August 09, 2025 End: August 09, 2025Team MemberRelationshipSpecialtyStart DateEnd Date Yinka Lopez MD [address] [place] [address] PCP - [facility]03/26/23 Emely Pedersen DO [address] [place] [address] PCP - [facility]04/25/25 Sima Paul RN [address] [place] [address] [facility]08/24/23Team MemberRelationshipSpecialtyStart DateEnd Date Yinka Lopez MD [address] [place] [address] [facility]03/26/23 Emely Pedersen DO [address] [place] [address] [facility]04/25/25 Sima Paul RN [address] [place] [address] [facility]08/24/23Team MemberRelationshipSpecialtyStart DateEnd Date Yinka Lopez MD [address] [place] [address] [facility]03/26/23 Emely Pedersen DO [address] [place] [address] [facility]04/25/25 Sima Paul RN [address] [place] [address] [facility]08/24/23 Team Status: Inactive Member Role Status Dates Emely Pedersen DO Primary Care Provider Active Start: August 16, 2025 End: August 16, 2025Rene [place] ProviderActiveStart: August 16, 2025 End: August 16, 2025 Team Status: Active Member Role Status Dates Fabiola Marinelli MD Attending Provider Active Start: August 16, 2025 Kaleigh Rubalcavaing ProviderActiveStart: August 16, 2025 Loren Ferrarainfirmary ltac hospitalseun [facility] ProviderActiveStart: August 16, 2025 Team MemberRelationshipSpecialtyStart DateEnd Date Yinka Lopez MD [address] [place] [address] [facility]03/26/23 Emely Pedersen DO [address] [place] [address] PCP - [facility]04/25/25 Sima Paul, LES [address] [place] [address] [facility]istered [facility] [place]08/24/23Te MemberRelationshipSpecialtyStart DateEnd Date Yinka Lopez MD [address] [place] [address] [facility]03/26/23 Emely Pedersen DO [address] [place] [address] [facility] - [facility]04/25/25 Sima Paul RN [address] [place] [address] Registered [facility] [place]08/24/23Te MemberRelationshipSpecialtyStart DateEnd Yinka Lopez MD [address] [place] [address] [facility]03/26/23 Emely Pedersen DO [address] [place] [address] [facility]04/25/25 Sima Paul, LES [address] [place] [address] Registered [facility] [place]08/24/23Te MemberRelationshipSpecialtyStart DateEnd Date Yinka Lopez MD [address] [place] [address] PCP - ACO [facility]03/26/23 Yinka Lopez MD [address] [place] [address] [facility] - [facility] Emely Pedersen DO [address] [place] [address] PCP - [facility] Medicine Emely Pedersen DO [address] [place] [address] PCP - [facility] Medicine04/25/25 Fabiola Palumbo NP [address] [place] [address] Nurse PractitionerFamily Medicine Letty Newsome NP [address] [place] [address] Nurse PractitionerPulmonary Disease Sima Paul, LES [address] [place] [address] Registered NurseFamily Yepjbkzb91/23/23 Goals (unrecognized section and content) Goals may [...] or prosecute any alcohol or drug abuse patient.[facility] CenterIn the event this information is protected by the Federal Confidentiality of Alcohol and Drug Abuse Patient Records regulations: The Federal rules restrict any use of the information to criminally investigate or prosecute any alcohol or drug abuse patient.[facility] CenterIn the event this information is protected by the Federal Confidentiality of Alcohol and Drug Abuse Patient Records regulations: The Federal rules restrict any use of the information to criminally investigate or prosecute any alcohol or drug abuse patient.[facility] CenterIn the event this information is protected by the Federal Confidentiality of Alcohol and Drug Abuse Patient Records regulations: The Federal rules restrict any use of the information to criminally investigate or prosecute any alcohol or drug abuse patient.[facility] [place] [facility] CenterIn the event this information is protected by the Federal Confidentiality of Alcohol and Drug Abuse Patient Records regulations: The Federal rules restrict any use of the information to criminally investigate or prosecute any alcohol or drug abuse patient.[facility] Reason for Visit (unrecogniz ed section and content) ReasonCommentsReceived Outside Medical RecordsReasonCommentsFollow UpReason CommentsFollow-upSpecialtyDiagnoses / ProceduresReferred By ContactReferred To Contact Diagnoses Multiple myeloma not having achieved remission ([facility]/HCC) Procedures Theresa Mora MD PhD [place] [phone] [facility] [address] [place], [place] [phone] Referral IDStatusReasonStart DateExpiration DateVisits RequestedVisits [id number] / ProceduresReferred By ContactReferred To Contact Diagnoses Multiple myeloma not having achieved remission (CMS/HCC) [place] [address] [facility] Infusion [place] [phone] Referral IDStatusReasonStart DateExpiration DateVisits RequestedVisits [id number]/16/202412/31/[id number] / ProceduresReferred By ContactReferred To ContactCardiology Diagnoses Multiple myeloma not having achieved remission ([facility]/HCC) Procedures Vascular US lower extremity venous duplex right Lisette Perkins, FIBRE TECHNOLOGIST-BINDERY MACHINE SETTER [address] [place] [address] Referral IDStatusReasonStart DateExpiration DateVisits RequestedVisits [id number] Review Perform Procedure [id number] / ProceduresReferred By ContactReferred To Contact Diagnoses Multiple myeloma not having achieved remission (Multi) Supa Lindquist MD PhD [address] [place] [address] [facility] [address] [place] [phone] Referral IDStatusReasonStart DateExpiration DateVisits RequestedVisits [id number]/16/20241/[id number]i ReasonCommentsEstablished PatientSpecialtyDiagnoses / ProceduresReferred By ContactReferred To Contact Diagnoses Multiple myeloma not having achieved remission (Multi) Supa Lindquist MD PhD [address] [place] [phone] [facility] [address] [place] [phone] Referral IDStatusReasonStart DateExpiration DateVisits RequestedVisits [id number]/9/20245/9/[id number] for painful hemorrhoidsSpecialtyDiagnoses / ProceduresReferred By ContactReferred To ContactGeneral Surgery Diagnoses Bleeding hemorrhoids Procedures DC OFFICE/OUTPATIENT NEW HIGH MDM 60 MINUTES Letty Newsome, PARK MANAGER [address] [place] [address] Phone: tel: fax: Andrew Norman, [address] [address] Phone: tel: fax: Referral IDStatusReasonStart DateExpiration DateVisits RequestedVisits [id number] Specialty Services Required /[id number] IDStatusReasonStart DateExpiration DateVisits RequestedVisits [id number]/9/20245/[id number] Med RefillReasonCommentsNew Patient VisitReasonOnset DateCommentsMedicare Diyzlcua23/21/2025Med Phyiis8301/20/2025ReasonCommentsUTIReasonCommentsOrders ReasonCommentsCoughURIPain With Breathing Scheduled Active and Recently Administ ered Medications (unrecognized section and content) Medication Order//10/2023 acyclovir (Zovirax) tablet 400 mg 400 mg, oral, 2 times daily, First dose on Thu08/04/23 at 0045 * 0904 (Given - Provider: Ro Fontanez RN) * 2010 (Given - Provider: Bhavani Chris RN) * 825 (Given - Provider: Ro Fontanez RN) * 2053 (Given - Provider: Joaquina Cordon RN) * 0856 (Given - Provider: Carroll Mcmullen, [...] 0800 * 0904 (Given - Provider: Ro Fontanez RN) * 2010 (Given - Provider: Bhavani Chris RN) * 08 (Given - Provider: Ro Fontanez RN) * 2053 (Given - Provider: Joaquina Cordon, LES) * 0859 (Given - Provider: Carroll Mcmullen, LES) * 2100 (Due) cholecalciferol (Vitamin D-3) capsule 125 mcg 125 mcg, oral, Daily, First dose on Thu08/04/23 at 0900 * 1409 (Given - Provider: Ro Fontanez RN) * 09 (Given - Provider: Ro Fontanez RN) * 0859 (Given - Provider: Carroll Mcmullen RN) cyanocobalamin (Vitamin B-12) tablet 1,000 mcg 1,000 [...] food (eg, applesauce, orange juice, pudding * 0904 (Given - Provider: Ro Fontanez RN) * 1410 (Given - Provider: Ro Fontanez RN) * 2010 (Given - Provider: Bhavani Chris RN) * 0825 (Given - Provider: Ro Fontanez RN) * 144 (Given - Provider: Ro Fontanez RN) * 2053 (Given - Provider: Joaquina Cordon RN) * 0857 (Given - Provider: Carroll Mcmullen RN) * [...] Cordon RN) * 1029 (Stopped - Provider: oR Fontanez RN) pantoprazole (ProtoNix) EC tablet 40 mg 40 mg, oral, Daily before breakfast, First dose on Thu08/04/23 at 0700, Do not crush, chew, or split. * 0904 (Given - Provider: Ro Fontanez, RN) * 0614 (Given - Provider: Bhavani Chris, RN) * 0900 (Given - Provider: Carroll Mcmullen, RN) wcsoynzjbqqi-fymaugdewr-gdbomhom (Zosyn) IV 3.375 g (CANCELED) 3.375 g, intravenous, at 100 mL/hr, Administer over 0.5 Hours, Every 6 hours, First dose on Thu08/10/23 at 2215, premix bag * 0629 (New Bag - Provider: Joaquina Cordon RN) * 0659 (Stopped - Provider: Ro Fontanez, LES) * 1145 (New Bag - Provider: Ro Fontanez, RN) * 1215 (Stopped - Provider: Ro Fontanez, LES) * 1800 (New Bag - Provider: Rosario Deras, RN) * 1830 (Stopped - Provider: Rosario Deras, RN) * 2358 (New Bag - Provider: Bhavani Chris, RN) * 0028 (Stopped - Provider: Bhavani Chris, RN) * 0614 (New Bag - Provider: Bhavani Chris, LES) * 0644 (Stopped - Provider: Joaquina Cordon, LES) * 1139 (New Bag - Provider: Ro Fontanez, RN) * 1209 (Stopped - Provider: Ro Fontanez, LES) potassium chloride CR (Klor-Con) ER tablet 10 mEq 10 mEq, oral, Daily, First dose on Thu08/04/23 at 0900, Do not crush, chew, or split. * 0904 (Given - Provider: Ro Fontanez, RN) * 0826 (Given - Provider: Ro Fontanez, RN) * 0859 (Given - Provider: Carroll Mcmullen, RN) sodium chloride 0.9 % bolus 500 mL (COMPLETED) 500 mL, intravenous, at 250 mL/hr, Administer over 2 Hours, Once, On Thu08/11/23 at 1400, For 1 dose * 1400 (New Bag - Provider: Ro Fontanez, RN) * 1455 (Stopped - Provider: Ro Fontanez, RN) * 1456 (Stopped - Provider: Rosario Deras, RN) Medication Order//10/2023 acetaminophen (Tylenol) tablet 650 [...] 1209 * 1245 (Given - Provider: Carroll Mcmullen RN) methylPREDNISolone sod suc / (SOLU-Medrol) 40 mg [...] (7-10), first line, Starting on Thu08/04/23 at 0035 * 1149 (Given - Provider: Ro Fontanez, LES) * 2116 (Given - Provider: Joaquina Cordon, RN) * 208 (Given - Provider: Bhavani Chris RN) * 2001 (Given - Provider: Joaquina Cordon, LES) polyethylene glycol (Glycolax, Miralax) packet 17 g [...] Prophylaxis * 0838 (Given - Provider: Fletcher Rahman, LES) * 2027 (Given - Provider: Tawnya Fernandez, LES) * 09 (Given - Provider: Fletcher Rahman, LES) * 2104 (Given - Provider: Clementina Benito, LES) * 0808 (Given - Provider: Fletcher Rahman, LES) * 2100 (Due) alum-mag hydroxide-simeth (Mylanta) 200-200-20 [...] LES) * 0808 (Given - Provider: Fletcher Rahman RN) carvedilol (Coreg) tablet 12.5 mg 12.5 mg, [...] (Given - Provider: Fletcher Rahman, LES) * 0807 (Given - Provider: Fletcher Rahman RN) gabapentin (Neurontin) capsule 100 mg 100 mg, oral, 2 times daily, First dose on Thu11/19/23 at 2100, Capsules may be opened and sprinkled on food (eg, applesauce, orange juice, pudding * 0838 (Given - Provider: Fletcher Rahman RN) * 2027 (Given - Provider: Tawnya Fernandez RN) * 917 (Given - Provider: Fletcher Rahman RN) * 2100 (Given - Provider: Clementina Benito RN) * 08 (Given - Provider: Fletcher Rahman RN) * [...] dose * 0609 (New Bag - Provider: Tawnya Fernandez RN) * 0809 (Stopped - Provider: [...] Provider: Fletcher Rahman RN) * 1700 (Due) pantoprazole (ProtoNix) EC tablet 40 mg 40 mg, oral, Daily before breakfast, First dose on Thu11/19/23 at 0800, Do not crush, chew, or split. * 0838 (Given - Provider: Fletcher Rahman RN) * 0922 (Given - Provider: Fletcher Rahman RN) * 0808 (Given - Provider: Fletcher Rahman RN) potassium chloride 40 mEq in 100 mL IV premix (COMPLETED) 40 mEq, intravenous, at 25 mL/hr, Administer over 4 Hours, Once, On Thu11/24/23 at 0745, For 1 dose, Via central line. For central line administration only. * 0920 (New Bag - Provider: Fletcher Rahman RN) * 1320 (Stopped - Provider: Fletcher Rahman RN) potassium chloride CR (Klor-Con) ER tablet [...] Fletcher Rahman RN) * 1430 (Due) Medication Order11/23//// albuterol 2.5 mg /3 mL (0.083 %) [...] dose * 1008 (Given - Provider: Fletcher Rahman, LES) methylPREDNISolone sod succinate (PF) (SOLU-Medrol) 40 mg/mL [...] 1423 * 1021 (Given - Provider: Fletcher Rahman, LES) * 1844 (Given - Provider: Johny Carter RN) * 1024 (Given - Provider: Fletcher Rahman, LES) * 1725 (Given - Provider: Fletcher Rahman, LES) * 2150 (Given - Provider: Clementina Benito, LES) * 0807 (Given - Provider: Fletcher Rahman, LES) polyethylene glycol (Glycolax, Miralax) packet 17 g [...] BE BASED ON THE PRIMARY CLINICAL RECORDS. [email or web address] provides no warranty or guarantee of the accuracy or completeness of information in this document.
[2025-08-29] MEDS: MAGNESIUM OXIDE 400 MG TABLET PO (08:12)
[2025-08-29] MEDS: SPIRONOLACTONE 25 MG TABLET 50 MG PO (08:12)
[2025-08-29] MEDS: POTASSIUM CHLORIDE 10 MEQ ER TABLET PO (08:12)
[2025-08-29] MEDS: CARVEDILOL 12.5 MG TABLET PO (08:12)
[2025-08-29] MEDS: FUROSEMIDE 20 MG TABLET PO (08:12)
[2025-08-29] MEDS: METHYLPREDNISOLONE SOD SUCC PF 40 MG/ML VIAL IVP ×2 (08:13→21:56)
--- NOTE | 2025-08-29 08:45 | CM.NOTE ---
Rounds made with Dr. Clinton, discussed with pt diagnosis and plan of care. Pt is inpatient status, no discharge today.
[2025-08-29] MEDS: IPRATROPIUM/ALBUTEROL SULFATE 3 ML AMPUL.NEB IH ×3 (09:31→21:33)
[2025-08-29] MEDS: ALPRAZOLAM 0.5 MG TABLET PO ×2 (10:04→21:56)
[2025-08-29] MEDS: FUROSEMIDE 20 MG/2 ML VIAL IVP ×2 (10:08→21:56)
[2025-08-29] MEDS: POLYETHYLENE GLYCOL 3350 17 GM POWDER PACKET PO (10:13)
--- NOTE | 2025-08-29 11:28 | SWNOTE1 ---
Important Message from Medicare reviewed and discussed with patient. Pt. verbalized understanding and signed the form. Original given to patient and copy placed in patient?s chart.
--- NOTE | 2025-08-29 11:30 | SWNOTE1 ---
SW met with pt to discuss dc needs. Pt's sister in room as well. Pt voiced she was tired, but she did allow SW to talk to her. Pt lives at home alone, but has people she can contact if anything is needed. Pt has a cane at home that she does use. Pt does not have any services coming in at this time. Pt denies any discharge needs at this time. SW to follow as needed.
--- NOTE | 2025-08-29 12:42 | PM.HP ---
HPI H&P: HPI History of Present Illness Chief complaint: SHORT OF BREATH COPD EXACERBATION FAILURE OF OUT P Narrative: Mrs. Snider is a 69-year-old female with a known diagnosis of COPD and multiple myeloma. The patient came to the emergency room complaining of a shortness of breath, dyspnea on exertion and orthopnea when she lays down. Patient came to the emergency room on 08/27. CAT scan of the chest does not show any PE or any significant thoracic abnormalities. She was sent home but patient return back to the emergency room complaining of the same. Patient reported having minimal cough. Patient also reported having RIN infection tested positive at primary care doctor's office within the last 2 weeks. No fever or chills. No chest pain or palpitation. Opioid HPI Opioid Management Most Recent Pain and Opioid Data: Last Pain Scale 2 Today, 05:58 Last Pain Assessment Today, 12:05 Last MAR Pain Assessment Today, 05:58 Last ORT Total Score 0 08/28/25, 13:58 Last ORT Risk Category Low Risk 08/28/25, 13:58 Review of Systems ROS Status of ROS 10 or more systems reviewed and unremarkable except as noted in history and below PFSH [facility], [facility] Medical History (Updated 08/28/25 @ 12:53 by Elvi Malin MD) COPD (chronic obstructive pulmonary disease) ?J44.9 - Chronic obstructive pulmonary disease, unspecified (ICD-10) Multiple myeloma ?C90.00 - Multiple myeloma not having achieved remission (ICD-10) Social History Highest level of school completed/degree received: GED or equivalent Little interest or pleasure in doing things: not at all Feeling down, depressed, or hopeless: several days Meds Home Medications and Allergies Home Medications ?Medication ?Instructions ?Recorded ?Confirmed ?Type acyclovir 400 mg tablet 400 mg PO Q12H 08/27/25 08/28/25 History albuterol sulfate 2.5 mg/3 mL 2.5 mg inhalation Q6H PRN 08/27/25 08/28/25 History (0.083 %) solution for nebulization shortness of breath or wheezing budesonide 160 mcg-glycopyr 9 2 inh inhalation BID 08/27/25 08/28/25 History mcg-formot 4.8 mcg/actuation HFA inhaler (Breztri Aerosphere) carvedilol 12.5 mg tablet 12.5 mg PO Q12H 08/27/25 08/28/25 History cefdinir 300 mg capsule 300 mg PO DAILY 08/27/25 08/28/25 History cetirizine 10 mg tablet 10 mg PO .QHS 08/27/25 08/28/25 History fluticasone propionate 50 1 spray intranasal DAILY 08/27/25 08/28/25 History mcg/actuation nasal spray,suspension furosemide 20 mg tablet 20 mg PO DAILY 08/27/25 08/28/25 History guaifenesin 600 mg tablet, 600 mg PO Q12H 08/27/25 08/28/25 History extended release 12 hr magnesium oxide 400 mg (241.3 mg 400 mg PO DAILY 08/27/25 08/28/25 History magnesium) tablet metformin 500 mg tablet,extended 500 mg PO DAILY 08/27/25 08/28/25 History release 24 hr morphine 15 mg tablet,extended 15 mg PO Q12H 08/27/25 08/28/25 History release nitrofurantoin 100 mg PO DAILY 08/27/25 08/28/25 History monohydrate/macrocrystals 100 mg capsule omeprazole 40 mg capsule,delayed 40 mg PO .ACB 08/27/25 08/28/25 History release ondansetron 8 mg disintegrating 8 mg translingual Q12H PRN nausea 08/27/25 08/28/25 History tablet and vomiting oxycodone 10 mg tablet 10 mg PO Q4H PRN pain 08/27/25 08/28/25 History potassium chloride 10 mEq 10 meq PO DAILY 08/27/25 08/28/25 History capsule,extended release prednisone 20 mg tablet 20 mg PO DAILY 08/27/25 08/28/25 History semaglutide 0.25 mg or 0.5 mg (2 0.25 mg subcut .WEEKLY 08/27/25 08/28/25 History mg/3 mL) subcutaneous pen injector (Ozempic) simvastatin 20 mg tablet 20 mg PO BEDTIME 08/27/25 08/28/25 History spironolactone 50 mg tablet 50 mg PO DAILY 08/27/25 08/28/25 History trazodone 50 mg tablet 50 mg PO BEDTIME PRN insomnia 08/27/25 08/28/25 History atorvastatin 40 mg tablet 40 mg PO .morning 08/28/25 08/28/25 History melatonin 5 mg capsule 5 mg PO DAILY 08/28/25 08/28/25 History Allergies Allergy/AdvReac Type Severity Reaction Status Date / Time amoxicillin Allergy Rash Verified 08/29/25 09:28 antazoline Allergy Rash Verified 08/29/25 09:28 diclofenac Allergy Hives Verified 08/29/25 09:28 doxycycline Allergy Swelling Verified 08/29/25 09:28 erythromycin base Allergy Hives Verified 08/29/25 09:28 moxifloxacin Allergy Hives Verified 08/29/25 09:28 Quinolones Allergy Hives Verified 08/29/25 09:28 tetracycline Allergy Rash Verified 08/29/25 09:28 Exam Narrative Exam Narrative: [pt is awake and alert. oriented to place, time and person HEENT: [place] conjunctiva and NL buccal mucosa Neck: Supple, no tenderness Endocrine: No Thyromegaly. Vascular: No JVD or carotid bruit. Lymphatic: No cervical lymphadenopathy. Chest: Soft rhonchi heard on chest exam, mostly on the right side Heart RRR, no extra sound or murmur. Abd: Soft, no tenderness, no rebound and no rigidity. Increase abd girth therefore clinically I could not exclude the possibility of intra abd mass or organomegaly. LE: No cyanosis or clubbing, no varices. Trace pitting edema Neuro: A A O. Nl speech, comprehension and attention. Nl and symetrical motor and tone examination through out. []] Constitutional Vital Signs, click to edit/add: Last Vital Signs Temp 97.9 F 08/29/25 07:37 Pulse 81 08/29/25 12:00 Resp 18 08/29/25 07:37 BP 134/81 08/29/25 07:37 Pulse Ox 94 L 08/29/25 09:32 O2 Del Method Room Air 08/29/25 09:32 Results Labs Labs: Short CBC 08/29/25 Range/Units 05:45 WBC 2.6 L (4.0-11.0) 10^3/uL Hgb 11.9 L (12.0-16.0) g/dL Hct 35.1 L (36.0-48.0) % Plt Count 51 L (150-450) 10^3/uL BMP 08/29/25 05:45 Sodium 138 Potassium 4.3 Chloride 100 Carbon Dioxide 27.2 BUN 27.0 H Creatinine 0.93 Glucose 154 H Calcium 8.9 Liver Function 08/29/25 Range/Units 05:45 Total Bilirubin 1.3 H (0.2-1.0) mg/dL AST 42 H (15-37) U/L ALT 52 (14-59) U/L Alkaline Phosphatase 115 (46-116) U/L Albumin 3.4 (3.4-5.0) g/dL Assessment and Plan Assessment and Plan (1) Asthma exacerbation in COPD: (2) Shortness of breath: Plan Dyspnea, orthopnea, dyspnea on exertion Patient does have trace pitting edema in both legs. BNP is slightly elevated but not out of range. D-dimer is positive. CTA of the chest negative for PE. Venous studies negative for DVT. Suspect positive D-dimer related to her underlying multiple myeloma or other possible etiologies. Patient has underlying COPD. She smoked for 20 years in the past but quit 20 years ago. Patient is not terribly hypoxic. Saturation 94% on room air. I suspect that her dyspnea sensation is multifactorial secondary to underlying COPD, probable interstitial edema secondary to diastolic heart failure, recent diagnosis of rhino infection, probable pulmonary hypertension compounded by underlying anxiety. RSV is negative, influenza A and B are negative, COVID is negative patient may have other potential viral bronchitis which are not tested including adenovirus, pertussis, other SARS non-COVID, parainfluenza, [place] pneumo human virus and others. I have accepted to admit her to the medical floor I started her on albuterol, Atrovent and Solu-Medrol. I started her on Lasix intravenously. Discontinue Coreg to reduce risk of bronchospasm. Requested echocardiogram to assess cardiac function, diastolic function per se and rule out significant pulmonary hypertension. Monitor her symptomology clinically and adjust accordingly. Multiple myeloma on chemotherapy with pancytopenia Patient is to follow-up with PCP and oncology Thrombocytopenia which is probably secondary to multiple myeloma and chemotherapy however recent CAT scan of the abdomen showed evidence of liver cirrhosis morphology with evidence of portal hypertension and small ascites. Not sure if this has been investigated in the past Broad differential diagnosis as to the etiology of this. Broad differential diagnosis including but not limited to viral, autoimmune, alcoholic, neoplastic and infiltrative liver disease. Patient will need liver cancer screening Patient will need esophageal varices screening. Recommend further evaluation and management by PCP and/or in collaboration with hepatology. DVT prophylaxis Avoid anticoagulation due to thrombocytopenia Chronic pain on long and short acting pain medication Patient is to follow-up with her team in the outpatient setting. Chronic, subacute medical conditions not listed above, abnormal labs and imaging. These would need to be addressed. Could be addressed later on or in the outpatient setting by PCP collaboration with other needed outpatient providers when time and condition are appropriate. Patient status is dynamic and evolutionary therefore the aforementioned assessment and plan may or may not be complete or conclusive. The patient would likely require to have additional workup, investigation and therapeutic invention that will be determined based on the clinical progression and follow-up test result. Some of which could be done in the outpatient setting.
[2025-08-29] MEDS: FUROSEMIDE 40 MG/4 ML VIAL IVP (13:22)
[2025-08-29] MEDS: INSULIN ASPART 300 UNIT/3 ML PEN SUBQ (17:57)
[2025-08-29] MEDS: METFORMIN HCL 500 MG TAB.ER.24H PO (18:06)
[2025-08-29] MEDS: ATORVASTATIN CALCIUM 10 MG TABLET PO (21:56)
[2025-08-29] MEDS: MORPHINE SULFATE 15 MG TABLET.ER PO (21:56)
[2025-08-29] MEDS: DOCUSATE SODIUM 100 MG CAPSULE 200 MG PO (21:56)
[2025-08-29] MEDS: MELATONIN 5 MG 5 EACH PO (21:57)
[2025-08-30] VITALS (7 sets, daily range): BP systolic 107–121; BP diastolic 67–83; PULSE 74–82; TEMP 36.5–36.8; O2SAT 93–98
[2025-08-30] MEDS: PANTOPRAZOLE SODIUM 40 MG TABLET.DR PO (05:42)
[2025-08-30 06:32] LABS: Anion Gap 11.5; Blood Urea Nitrogen 42.0 mg/dL (7.0-18.0); Calcium 9.1 mg/dL (8.5-10.1); Carbon Dioxide 30.0 mmol/L (21.0-32.0); Chloride 99 mmol/L (98-107); Estimated GFR (African America 45 (>=60 mL/min/1.73m^2); Estimated GFR (Non-African Ame 37 (>=60 mL/min/1.73m^2); Glucose 163 mg/dL (74-106); NT Pro B Type Natriuretic Pept 286.0 pg/mL (<=900.0); Potassium 4.5 mmol/L (3.5-5.1); Sodium 136 mmol/L (136-145)
--- NOTE | 2025-08-30 08:00 | CM.NOTE ---
Rounds made with Dr. Clinton, pt will discharge to home today and f/u with PCP and Dr. Raymundo.
[2025-08-30] MEDS: POTASSIUM CHLORIDE 10 MEQ ER TABLET PO (08:51)
[2025-08-30] MEDS: ALPRAZOLAM 0.5 MG TABLET PO (08:51)
[2025-08-30] MEDS: SPIRONOLACTONE 25 MG TABLET 50 MG PO (08:51)
[2025-08-30] MEDS: DOCUSATE SODIUM 100 MG CAPSULE 200 MG PO (08:51)
[2025-08-30] MEDS: METHYLPREDNISOLONE SOD SUCC PF 40 MG/ML VIAL IVP (08:51)
[2025-08-30] MEDS: MAGNESIUM OXIDE 400 MG TABLET PO (08:51)
[2025-08-30] MEDS: IPRATROPIUM/ALBUTEROL SULFATE 3 ML AMPUL.NEB IH (09:10)
--- NOTE | 2025-08-30 09:46 | CM.NOTE ---
Dr. Clinton provided with pt's past echo report.
--- NOTE | 2025-08-30 10:00 | CM.NOTE ---
Called for additional f/u appts to be scheduled for Dr. Fabiola Hurt and Dr. Spears, messages left.
--- NOTE | 2025-08-30 10:02 | PM.DS1 ---
DS: Providers Provider Date of admission: 08/28/25 13:40 Primary care physician: Power Swain DO DS: Diagnosis Discharge Diagnosis (1) Asthma exacerbation in COPD: (2) Shortness of breath: Plan As listed above, below and others that are not listed DS: Summary Hospital Course Hospital Course: Mrs. Snider is a 69-year-old female who came in with dyspnea sensation. Dyspnea, orthopnea, dyspnea on exertion Multifactorial subjective dyspnea without hypoxemia, COPD, diastolic heart failure, recent rhino bronchitis, anxiety Patient does have trace pitting edema in both legs. BNP is slightly elevated but not out of range. D-dimer is positive. CTA of the chest negative for PE. Venous studies negative for DVT. Suspect positive D-dimer related to her underlying multiple myeloma or other possible etiologies. Patient has underlying COPD. She smoked for 20 years in the past but quit 20 years ago. Patient is not terribly hypoxic. Saturation 94% on room air. Her saturation is 98% on room air with exertion RSV is negative, influenza A and B are negative, COVID is negative patient may have other potential viral bronchitis which are not tested including adenovirus, pertussis, other SARS non-COVID, parainfluenza, [place] pneumo human virus and others. Patient responded well to diuresis. BNP is trending down. I discontinued Coreg due to final expiratory wheezing on chest exam. Instead I put her on amlodipine 2.5 mg daily for hypertension and diastolic heart failure. Patient will continue to take Lasix 20 mg daily at home. Patient had an echocardiogram at outside facility showing normal ejection fraction but positive for grade 1 left ventricular diastolic dysfunction. Patient is feeling great and ready physically and psychologically to be discharged home. 5 cm dilatation of the ascending thoracic aorta seen on CT. On echocardiogram that the patient had on 08/17/2025 showed 4.3 cm dilatation only I recommend the patient to have a repeat echocardiogram or CT chest to continue to monitor the progression of this dilatation in 6 to 8 months to be arranged by PCP. Meanwhile I will arrange for patient to follow-up with vascular team at [facility]. Multiple myeloma on chemotherapy with pancytopenia Patient is to follow-up with PCP and oncology. Patient follows up with Dr. Fabiola Marinelli at [facility]. Thrombocytopenia which is probably secondary to multiple myeloma and chemotherapy however recent CAT scan of the abdomen showed evidence of liver cirrhosis morphology with evidence of portal hypertension and small ascites. Not sure if this has been investigated in the past Broad differential diagnosis as to the etiology of this. Broad differential diagnosis including but not limited to viral, autoimmune, alcoholic, neoplastic and infiltrative liver disease. Patient will need liver cancer screening Patient will need esophageal varices screening. Recommend further evaluation and management by PCP and/or in collaboration with hepatology. DVT prophylaxis Avoid anticoagulation due to thrombocytopenia Chronic pain on long and short acting pain medication Patient is to follow-up with her team in the outpatient setting. Chronic, subacute medical conditions not listed above, abnormal labs and imaging. These would need to be addressed. Could be addressed later on or in the outpatient setting by PCP collaboration with other needed outpatient providers when time and condition are appropriate. Patient has multiple complex medical issues as listed above and others that are not listed. All appear to be stable. Patient is feeling great and ready physically and psychologically to be discharged home. I do not have any clear or strong clinical justification to extend inpatient hospitalization. Patient however will require close and frequent monitoring as well as additional work-up, investigation and therapeutic intervention that could take place from this point on post discharge. That is to prevent relapse, decompensation, rehospitalization and other medical implications.. I instructed patient to ask her primary care doctor to obtain [facility] record entirely to address abnormalities seen on labs and imaging that I have and have not addressed during this hospitalization, follow-up on pending blood work, imaging and pathology is if available and to follow-up on needed medical care in the outpatient setting. Patient will need to follow-up with PCP, oncology, vascular, probable GI for suspected liver cirrhosis, pulmonary for COPD. Patient follows up with Dr. Raymundo. Time Spent with Patient Time attestation: Total time spent providing and/or coordinating discharge services: Exam Narrative Exam Narrative: [pt is awake and alert. oriented to place, time and person HEENT: [place] conjunctiva and NL buccal mucosa Neck: Supple, no tenderness Endocrine: No Thyromegaly. Vascular: No JVD or carotid bruit. Lymphatic: No cervical lymphadenopathy. Chest: Soft rhonchi heard on chest exam, mostly on the right side Heart RRR, no extra sound or murmur. Abd: Soft, no tenderness, no rebound and no rigidity. Increase abd girth therefore clinically I could not exclude the possibility of intra abd mass or organomegaly. LE: No cyanosis or clubbing, no varices. Trace pitting edema had resolved. Neuro: A A O. Nl speech, comprehension and attention. Nl and symetrical motor and tone examination through out. []] Constitutional Vital Signs, click to edit/add: Last Vital Signs Temp 98.2 F 08/30/25 08:03 Pulse 77 08/30/25 09:55 Resp 18 08/30/25 08:03 BP 121/83 08/30/25 08:03 Pulse Ox 98 08/30/25 09:11 O2 Del Method Room Air 08/30/25 09:11 DS: Data Data Completed and Pending Labs on day of discharge: Labs from last 24 hours 08/30/25 08/29/25 08/29/25 05:45 21:56 16:23 Sodium 136 Potassium 4.5 Chloride 99 Carbon Dioxide 30.0 Anion Gap 11.5 BUN 42.0 H Creatinine 1.42 H Est GFR ( Amer) 45 L Est GFR (Non-Af Amer) 37 L BUN/Creatinine Ratio 29.6 Glucose 163 H Calcium 9.1 NT-Pro-B Natriuret Pep 286.0 POC Glucose 106 216 H 08/29/25 11:18 Sodium Potassium Chloride Carbon Dioxide Anion Gap BUN Creatinine Est GFR ( Amer) Est GFR (Non-Af Amer) BUN/Creatinine Ratio Glucose Calcium NT-Pro-B Natriuret Pep POC Glucose 167 H Discharge Plan Discharge Disposition: Home, Self-Care Discharge Medications: New amlodipine 2.5 mg tablet 2.5 mg PO DAILY Qty: 30 1RF Continued melatonin 5 mg capsule 5 mg PO DAILY Rx Instructions: At night atorvastatin 40 mg tablet 40 mg PO .morning acyclovir 400 mg tablet 400 mg PO Q12H albuterol sulfate 2.5 mg /3 mL (0.083 %) solution for nebulization 2.5 mg inhalation Q6H PRN (Reason: shortness of breath or wheezing) Vidali Aerosphere 160-9-4.8 mcg/actuation HFA aerosol inhaler 2 inh INHALATION BID cetirizine 10 mg tablet 10 mg PO .QHS fluticasone propionate 50 mcg/actuation spray,suspension 1 spray INTRANASAL DAILY furosemide 20 mg tablet 20 mg PO DAILY guaifenesin 600 mg tablet extended release 12hr 600 mg PO Q12H magnesium oxide 400 mg (241.3 mg magnesium) tablet 400 mg PO DAILY metformin 500 mg tablet extended release 24 hr 500 mg PO DAILY morphine 15 mg tablet extended release 15 mg PO Q12H omeprazole 40 mg capsule,delayed release(DR/EC) 40 mg PO .ACB ondansetron 8 mg tablet,disintegrating 8 mg translingual Q12H PRN (Reason: nausea and vomiting) oxycodone 10 mg tablet 10 mg PO Q4H PRN (Reason: pain) potassium chloride 10 mEq capsule, extended release 10 meq PO DAILY prednisone 20 mg tablet 20 mg PO DAILY Ozempic 0.25 mg or 0.5 mg (2 mg/3 mL) pen injector 0.25 mg SUBCUT .WEEKLY spironolactone 50 mg tablet 50 mg PO DAILY Discontinued carvedilol 12.5 mg tablet 12.5 mg PO Q12H cefdinir 300 mg capsule 300 mg PO DAILY nitrofurantoin monohyd/m-cryst 100 mg capsule 100 mg PO DAILY simvastatin 20 mg tablet 20 mg PO BEDTIME trazodone 50 mg tablet 50 mg PO BEDTIME PRN (Reason: insomnia) Print Language: [place] Activity Restrictions/Additional Instructions: I may not have addressed or treated all of your medical illnesses or the abnormal blood work or imaging studies during this hospitalization. Please ask your primary care provider to obtain [facility] records entirely to follow up on all of the abnormal physical, laboratory, and imaging findings that I have not addressed. Please return back to the emergency room or seek medical attention if your symptoms worsen or return. CAT scan of the chest showed that you have dilatation of the ascending thoracic aorta (widening of the main vessel coming out of your heart measuring about 5 cm or 2 inches and a half ) I would recommend that your primary care doctor order repeat CAT scan or echocardiogram in 4-6 months to make sure that this is not getting worse. If the widening is getting worse you would likely need to have surgery to fix it Meanwhile I will ask you to follow-up with the vascular surgeon in [place] Discharging you from [facility] does not mean that your medical care ends here and now. You may still need additional monitoring, work up, investigation, and treatment plan to be handled from this point on by out patient providers including your primary care provider and specialists. For any medication question, please contact your retail pharmacist or your primary care provider. Thank you. Forms: Portal Instructions Referrals: nikolas seymour [Other] FABIOLA MARINELLI M.D. [Physician] Follow Up Appointments: Dr. Zackary Leonardo 09/04 @ 11am [address] [facility] [phone] Dr. Brynn Gabriel 09/06 @ 10:20am [address] [place] [address]
--- NOTE | 2025-08-30 14:04 | SWNOTE1 ---
JOSH answered case management phone and it was chucking lathe operator at Dr. Spears office. She was reaching back out to Peggy in case management. They would like more information faxed over and spoke to Jessica the cyanide case hardener in regards to further questions the office had. All questions answered. JOSH faxed over face sheet, H&P, and dc summary.
--- NOTE | 2025-08-30 16:16 | NUTR.NU ---
PO intakes of regular diet are variable, generally good. Pt reports no loss of appetite and no dietary concerns. Recommend pt limit dietary sodium. Will continue to follow PRN.
--- NOTE | 2025-08-31 09:46 | CM.NOTE ---
Updated pt on Dr. Underwood office called back and they would recommend pt to be seen in [place] or [place]. Pt will check with PCP to schedule.
== END 2025-08-30 11:36 | disposition home or self-care (01) | DRG 191 ==
LOC: ER 12:53 → MS 08-29 07:31
PROVIDERS: Admitting Provider Internal Medicine; Emergency Provider Emergency Medicine; PCP Student in an Organized Health Care Education/Training Program; Visit Provider Internal Medicine
DX: J44.1 Chronic obstructive pulmonary disease with (acute) exacerbation (principal); C90.00 Multiple myeloma not having achieved remission; I50.30 Unspecified diastolic (congestive) heart failure; K76.6 Portal hypertension; R18.8 Other ascites; D61.818 Other pancytopenia; R06.02 Shortness of breath; R06.09 Other forms of dyspnea; R79.89 Other specified abnormal findings of blood chemistry; Z87.891 Personal history of nicotine dependence; Z79.60 Long term (current) use of unspecified immunomodulators and immunosuppressants; K74.60 Unspecified cirrhosis of liver; D69.6 Thrombocytopenia, unspecified; G89.29 Other chronic pain; R06.01 Orthopnea; F41.9 Anxiety disorder, unspecified; I11.0 Hypertensive heart disease with heart failure; I71.20 Thoracic aortic aneurysm, without rupture, unspecified
CPT/HCPCS: 36415; 36592; 71045; 71046; 71275; 80048; 80053; 82948; 83036; 83735; 83880; 84100; 84443; 84484; 85007; 85025; 85027; 85378; 87040; 87420; 87804; 87811; 93005; 93970; 94640; 96365; 96375; 99285; J0456; J1938; J2405; J2919; Q9967

== ENCOUNTER 2025-09-25 10:53 | Outpatient (OUT) | payer MEDICARE, MEDICAID, SELFPAY ==
--- OUTSIDE RECORDS SUMMARY | 2025-09-11 10:00 | XMS_ITS | Encounter Summary ---
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 [place] [phone] Power Swain DO [address] [facility] [address] [place] [address] COPD with acute exacerbation (HCC) (Primary Dx); Seasonal allergic rhinitis due to pollen; Localized swelling of both lower legs Social History Tobacco UseTypesPacks/DayYears UsedDateSmoking Tobacco: FormerCigarettes [...] on one occasion?Never06/15/2025PHQ-2AnswerDate Recorded Patient Health Questionnaire-2 Pljat638CommentsNoSex and Gender InformationValueDate RecordedSex Assigned at BirthNot on fileLegal SexFemale 01/14/2023 6:38 PM EDTGender IdentityNot on fileSexual OrientationNot on file OccupationIndustryJob Start DateJob End DateRetiredNot on fileNot on fileNot on filedocumented as of this encounter Last Filed Vital Signs Vital SignReadingTime TakenCommentsBlood Dqxovqds390/6809/11/2025 10:06 AM EST Dujvv182409/11/2025 10:06 AM HEMJynkyaqmwev55.5 ??C (97.7 ??F)2025 10:06 AM ESTRespiratory Hwcj191911/11/2024 10:06 AM ESTOxygen Kgoljlcuji50%2025 10:06 AM ESTInhaled Oxygen Concentration--Byfggy03.9 kg (196 lb)2025 10:06 AM PBDLizgxy038 cm (5' 3 )2025 10:06 AM ESTBody Mass Index34.7209/11/2025 10:06 AM ESTdocumented in this encounter Functional Status * Over the past 2 weeks, how often have you been bothered by any of the following problems?QuestionAnswerDate of AssessmentAuthorLittle interest or pleasure in doing thingsNot at all2025 9:50 AM Polina Kirk MA Feeling down, depressed, or hopelessNot at all2025 9:50 AM Polina Kirk MAPatient Health Questionnaire-2 Mxthn07711/11/2024 9:50 AM Polina Kirk MA documented as of this encounter Patient Instructions * Patient Instructions* Power Swain DO - 2025 10:00 AM EST Based on our discussion, I have outlined the following instructions for you: - Eat a probiotic or yogurt twice a day to help prevent stomach problems from taking several antibiotics. - Use albuterol inhaler only when you are away from home and cannot use the nebulizer. Continue using albuterol until Duoneb is available, and do not use both the nebulizer and inhaler at the same time. - Use your Breztri inhaler every day. - Keep using a humidifier at home. - Use fluticasone nasal spray (generic for Flonase), two sprays in each nostril in the morning and at bedtime, making sure to use the correct technique. - Take cetirizine (Zyrtec) 10 mg twice a day. - Take Bactrim (sulfamethoxazole/trimethoprim) twice a day for 5 days, then switch to taking it three times a week to help prevent urinary tract infections. Let the office know if you need a refill earlier than expected because of this change. - Raise your legs up when you are at home to help with swelling. - Wear compression stockings that go above your knees to help with swelling in your legs. Thank you again for your visit, and we look forward to supporting you in your journey to better health. documented in this encounter Progress Notes * Power Swain DO - 2025 10:00 AM EST Images from the original note were not included. FAMILY MEDICINE NOTE Chief Complaint: Hospital Follow-up HPI: Chart Review: Patient is on Bactrim 3x weekly as well as Cefdinir for 2 months. Patient would like another antibiotic to treat illness. Still not feeling well. Has cough that is keeping her up all night. Flowsheet Row Telephone from 08/30/2025 in [facility] with Polina Ferrari MA Hospital Information ED, Hospital or [facility] Facility Discharge? Hospital Patient has been contacted within two business days of discharge Yes Diagnosis SOB Discharge Date 08/30/25 Discharged To: Home Setting Discharge Hospital [facility] Admission Date 08/28/25 Medications Discharge medications reviewed and reconciled from hospital? No Does the patient have all medications ordered at discharge? Yes Nursing Interventions No intervention needed Is the patient taking all medications as directed (includes completed medication regime)? Yes Appointments Does the patient have a primary care provider? Yes Nursing Interventions Patient declined follow up appointment w/ PCP Does the patient have any upcoming specialty appointments? Yes Self Management Does patient have home health? no Patient Teaching Does the patient have access to their discharge instructions? Yes Nursing Interventions Reviewed instructions with patient What is the patient's perception of their health status since discharge? Improving Is the patient/caregiver able to teach back the hierarchy of who to call/visit for symptoms/problems? PCP, Specialist, Home Health nurse, Urgent Care, ED, 911 Yes Wrap Up Wrap Up Additional Comments Pt had labs, EKG, CXR, Respiratory symptoms Had difficulty breathing, especially at night, with frequent coughing and hacking that disrupts sleep. Sometimes produces thick, pasty sputum with cough. Reports feeling congested and plugged up mostof the time. Denies current runny nose and sneezing. Reports increased wheezing recently. Uses Breztri inhaler daily and nebulizer every four hours, which provides temporary relief. Uses albuterol inhaler for emergencies. Has been using generic Flonase nasal spray every six hours and Zyrtec. Has not tried Mucinex due to cost. Recently completed a prednisone taper, with last dose today. Currently taking Bactrim three times a week and cefdinir for bladder infection. Uses a cold humidifier at home. Lower extremity swelling Reports swelling in both feet, worse on the right. Swelling improves with elevation. Not using compression stockings. Swelling was present before today. Patient denies any other acute complaints or concerns at this time. SUBJECTIVE: Past Medical History SURGICAL/SOCIAL ALLERGIES: Medical History[1] Surgical History[2] Social History[3] Allergies[4] OBJECTIVE: 2025 10:06 AM 08/22/2025 2:32 PM 06/15/2025 8:47 AM Vitals BMI 34.72 kg/m2 34.19 kg/m2 34.01 kg/m2 BSA (m2) 1.99 m2 1.97 m2 1.97 m2 Systolic 116 116 118 Diastolic 68 66 78 Heart Rate 73 79 81 SpO2 97 % 98 % 98 % Temp 97.7 ??F 97.7 ??F 98 ??F Resp 20 20 20 Height (in) 5' 3 5' 3 5' 3 Weight (lb) 196 193 192 Visit Report Report Physical Exam Constitutional: Appearance: Normal appearance. Cardiovascular: Rate and Rhythm: Normal rate and regular rhythm. Heart sounds: No murmur heard. No friction rub. No gallop. Pulmonary: Breath sounds: Wheezing and rhonchi present. No rales. Abdominal: General: Abdomen is flat. Bowel sounds are normal. There is no distension. Palpations: Abdomen is soft. There is no mass. Tenderness: There is no abdominal tenderness. There is no guarding. Musculoskeletal: General: Normal range of motion. Right lower le+ Edema present. Left lower le+ Edema present. Skin: General: Skin is warm. Neurological: General: No focal deficit present. Mental Status: She is alert. Mental status is at baseline. Psychiatric: Mood and Affect: Mood and affect normal. Behavior: Behavior normal. ASSESSMENT AND PLAN: Mojgan was seen today for hospital follow-up. Diagnoses and all orders for this visit: COPD with acute exacerbation (HCC) (Primary) - ipratropium-albuterol (Duo-Neb) 0.5-2.5 mg/3 mL nebulizer solution; Take 3 mL by nebulization every 6 (six) hours Seasonal allergic rhinitis due to pollen Localized swelling of both lower legs Respiratory symptoms (dyspnea, cough, increased sputum production, possible infection, COPD management): - Dyspnea, cough, and increased sputum production likely related to COPD exacerbation and possible respiratory infection given it has not improved with steroids or nebulizers. Lungs at baseline on exam, but increased respiratory symptoms noted. - Allergy to erythromycin, doxycycline, and levofloxacin discussed. Uncertainty regarding specific antibiotic allergies, but avoidance of these agents recommended due to risk of allergic reaction. - Change antibiotic regimen to Bactrim (sulfamethoxazole/trimethoprim) twice daily for 5 days for COPD exacerbation treatment, then resume three times weekly dosing for UTI prophylaxis. Advised to notify if early refill is needed due to schedule change. - Risks and side effects: Risk of allergic reaction including hives and swelling discussed. Patientconsented to Bactrim regimen. - Advised use of probiotic or yogurt twice daily to prevent gastrointestinal side effects from multiple antibiotics. Sent prescription for Duoneb nebulizer solution to replace albuterol alone; continue albuterol until Duoneb is approved and available. Continue Breztri inhaler daily. Use albuterol inhaler only when out and about and unable to use nebulizer. Advised not to double dose with nebulizer and inhaler. Continue use of humidifier at home. Allergic rhinitis: - Allergic rhinitis contributing to nasal congestion. - Recommended fluticasone nasal spray (generic for Flonase), two puffs each nostril in the morning and at bedtime. Advised proper administration technique. Recommended increasing cetirizine (Zyrtec) to 10 mg twice daily. Edema in lower extremities: - Edema present in both feet, worse on right. Likely venous etiology given normal cardiac function on recent echocardiogram. - Recommended elevation of legs at home. Advised use of compression stockings that go above the knee to improve venous return. This patient was contacted within 48 business hours of hospital discharge to schedule this follow-up appointment and was seen within the 14 days guideline. A thorough review of the discharge summary,current medications, and post- discharge instructions was completed. The patient's progress since discharge was discussed, and any new or unresolved issues were addressed. Medication reconciliation was performed, and necessary changes were made. The patient has been advised on follow-up care, and appropriate referrals to specialists were provided, if needed. The next follow-up appointment is scheduled within the recommended timeframe to ensure continuity of care. Patient's Medications New Prescriptions No medications on file Previous Medications ACYCLOVIR (ZOVIRAX) 400 MG TABLET Take 400 mg by mouth in the morning and 400 mg before bedtime. AMLODIPINE (NORVASC) 2.5 MG TABLET Take 2.5 mg by mouth Daily ATORVASTATIN (LIPITOR) 40 MG TABLET Take 1 tablet (40 mg) by mouth Daily BENZONATATE (TESSALON) 200 MG CAPSULE Take 1 capsule (200 mg) by mouth 3 (three) times a day as needed for cough for up to 7 days Do not crush or chew. NNDNPWN-AAUMYWTIJJK-QLJUQJGFAO (BREZTRI AEROSPHERE) 160-9-4.8 MCG/ACT AEROSOL Inhale 2 puffs in themorning and 2 puffs before bedtime. BUSPIRONE (BUSPAR) 10 MG TABLET Take 10 mg by mouth in the morning and 10 mg before bedtime. CEFDINIR (OMNICEF) 300 MG CAPSULE TAKE 1 [...] TIME EACH DAY AT THE SAME TIME FREESTYLE LANCETS USE 1 LANCET EVERY DAY [...] XR (GLUCOPHAGE-XR) 500 MG 24 HR TABLET TAKE 1 TABLET BY MOUTH EVERY DAY MORPHINE CR (MS CONTIN) 15 MG 12 HR TABLET Take 15 mg by mouth in the morning and 15 mg before bedtime. NALOXONE (NARCAN) 4 MG/0.1 ML NASAL SPRAY Administer 4 mg into affected nostril(s) NYSTATIN (MYCOSTATIN) 498220 UNIT/ML SUSPENSION Take 500,000 Units by mouth OMEPRAZOLE (PRILOSEC) [address] CAPSULE Take [...] 10 mEq by mouth in the morning. PREDNISONE (DELTASONE) 20 MG TABLET Take two tablets (40 mg) daily for five days, then take one tablet (20 mg) daily for five days. Take with food. PROCHLORPERAZINE (COMPAZINE) 10 MG TABLET Take 10 [...] THURSDAY AND THURSDAY TECLISTAMAB-CQYV 30 MG/3ML SOLUTION TRAZODONE (DESYREL) 50 MG TABLET VENTOLIN HFA 108 (90 BASE) MCG/ACT INHALER Modified Medications Modified Medication Previous Medication IPRATROPIUM-ALBUTEROL (DUO-NEB) 0.5-2.5 MG/3 ML NEBULIZER SOLUTION ipratropium- albuterol (Duo-Neb) 0.5-2.5 mg/3 mL nebulizer solution Take 3 mL by nebulization every 6 (six) hours Take 3 mL by nebulization every 6 (six) hours Discontinued Medications ALBUTEROL (2.5 MG/3ML) 0.083% NEBULIZER SOLUTION Take 3 mL (2.5 mg) by nebulization every 6 (six) hours if needed for wheezing FOSFOMYCIN (MONUROL) 3 G PACKET MIX 1 PACKET INTO LIQUID AND TAKE BY MOUTH ONCE EVERY 5 DAYS GUAIFENESIN (MUCINEX) 600 MG 12 HR TABLET Take 1 tablet (600 mg) by mouth in the morning and 1 tablet (600 mg) before bedtime. Do all this for 14 days. Do not crush, chew, or split. Follow up in about 4 weeks (around 10/09/2025) for copd f/u. This note was prepared in part with the assistance of dictation and [employer] technologies; minor errors or omissions may be [...] Drug use: Never [4] Allergies Allergen Reactions Diclofenac Sodium Swelling Latex Unknown, Hives and Rash Tetracycline Unknown, [...] Plan of Treatment DateTypeDepartmentCare Team (Latest Contact Info)Mqgzzrsiuwj04/08/2025 9:40 AM ESTOffice Visit [facility] [address], [place] [place] [address] Power Swain DO [address] [facility] [address] [place] [address] documented as of this encounter Visit Diagnoses Diagnosis COPD with acute exacerbation (HCC)- Primary Seasonal allergic rhinitis due to pollen Localized swelling of both lower legs documented in this encounter Additional Health Concerns AssessmentNoted TimePHQ-9 Depression Total Score: 9:00 AM EST documented as of this encounter Care Teams Team MemberRelationshipSpecialtyStart DateEnd Date Vitaliy Thomson MD [address] [place] [address] PCP - [facility]CO Reach03/26/23 Power Swain DO [address] [facility] [address] [place] [address] PCP - GeneralFamily Medicine04/25/25 Sima Paul RN [address] [place] [address] Registered NurseFamily Gxialgoj59/23/23documented as of this encounter
--- OUTSIDE RECORDS SUMMARY | 2025-09-19 06:31 | XMS_ITS | Continuity of Care Document ---
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 Name Role Phone Brynn Power Roger DO Primary Care Provider Katie Holder APRN Attending Provider Marlon Alba DO Emergency Provider Fabiola Marinelli MD Attending Provider Fabiola Marinelli MD Referring Provider Lulú Sweeney PROFESSIONAL SOCCER PLAYER-C Attending Provider Care Teams Patient Care Team Team Status: Active Member Role/Relationship Status Dates Power Swain DO Primary Care Provider Active Visit Care Team Team Status: Inactive Member Role/Relationship Status Dates Power Swain DO Primary Care Provider Active Start: July 19, 2025 End: July 19, 2025Rene Carlson ProviderActiveStart: July 19, 2025 End: July 19, 2025 Visit Care Team Team Status: Inactive Member Role/Relationship Status Dates Power Swain DO Primary Care Provider Active Start: July 19, 2025 End: July 19, 2025Vonnie Ocampo ProviderActiveStart: July 19, 2025 End: July 19, 2025 Visit Care Team Team Status: Inactive Member Role/Relationship Status Dates Power Swain DO Primary Care Provider Active Start: July 27, 2025 End: July 27Adina Tsai ProviderActiveStart: July 27, 2025 End: July 27, 2025 Visit Care Team Team Status: Inactive Member Role/Relationship Status Dates Power Swain DO Primary Care Provider Active Start: August 09, 2025 End: August 09, 2025Rene Carlson ProviderActiveStart: August 09, 2025 End: August 09, 2025 Visit Care Team Team Status: Inactive Member Role/Relationship Status Dates Power Swain DO Primary Care Provider Active Start: August 16, 2025 End: August 16, 2025Rene Carlson ProviderActiveStart: August 16, 2025 End: August 16, 2025 Visit Care Team Team Status: Inactive Member Role/Relationship Status Dates Power Swain DO Primary Care Provider Active Start: September 06, 2025 End: September 06, 2025Rene Carlson ProviderActiveStart: September 06, 2025 End: September 06, 2025 Visit Care Team Team Status: Active Member Role/Relationship Status Dates Fabiola Marinelli MD Attending Provider Active Start: September 19, 2025 AMOR Rubalcavaeferring ProviderActiveStart: September 19, 2025 Judah Ferrara Care ProviderActiveStart: September 19, 2025 Patient Care Team Team Status: Inactive Member Role/Relationship Status Dates Power Swain DO Primary Care Provider Active Start: September 19, 2025 End: September 19james Sweeney NP-CAttenpresley ProviderActiveStart: September 19, 2025 End: September 19, 2025 Chief Complaint and Reason for Visit Chief Complaint Admit Date rt side pain, vomiting July 19, 025 11:40am 7 week f/u July 27, 2025 10:25am 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, 2025 9:56am f/u September 19, 2025 10:09am Reason for Visit Admit Date Cancer associated pain July 19, 025 9:55am Hepatocellular carcinoma July 19, 2025 9:55am Nausea July 19, 2025 9:55am Hemorrhoids, complicated July 27, 2025 10:25am Hepatocellular carcinoma July 27, 2025 10:25am Iron deficiency anemia July 27, 025 10:25am Bone marrow hypocellularity July 272024 [...] :42am Nausea August 16, 2025 7 :42am Anxiety September 06, 2025 7 :48am Cancer associated pain September 06 7:48am Hepatocellular carcinoma September 06 025 7:48am Multiple myeloma September 06, 2025 7 :48am Acute right hip pain September 19, 2025 9:56am Hematuria September 19, 2025 9:56am Acute thoracic back pain September 19, 2025 9:56am Bone marrow hypocellularity September 9:56am Cancer-related pain September 19, 2025 9:56am Chemotherapy-induced neutropenia Novembe r 2024 9:56am Chronic copper deficiency September 19, 2025 9:56am Degenerative cervical spinal stenosis No vem2024 9:56am Encounter for antineoplastic immunothera py September 19, 2025 9:56am Encounter for chemotherapy management No 2024 9:56am Encounter for coordination of complex ca re September 19, 2025 9:56am History of 2019 novel coronavirus diseas e (COVID-19) September 19, 2025 9:56am 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 September 19, 2025 9:56am Iron deficiency September 19, 2025 9:56am 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) September 19, 2025 9:56am Multiple myeloma September 19, 2025 9:56am Neutropenia, unspecified September 19, 2025 9:56am Obesity September 19, 2025 9:56am 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 No vember 2024 9:56am Frontal sinusitis September 19, 2025 9:56am Diabetes mellitus September 19, 2025 9:56am Fibromyalgia September 19, 2025 9:56am Smoldering multiple myeloma (SMM) Novemb er 2024 9:56am Hemorrhoids, complicated September 19, 2025 10:09am Hepatocellular carcinoma September 19, 2025 10:09am Iron deficiency anemia September 19 10:09am Bone marrow hypocellularity September 10:09am Cancer-related pain September 19, 2025 10:09am Encounter for antineoplastic immunothera py September 19, 2025 10:09am Encounter for coordination of complex ca re September 19, 2025 10:09am 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 September 19, 2025 10:09am 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) September 19, 2025 10:09am Multiple myeloma September 19, 2025 10:09am 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 No vember 2024 10:09am Allergies, Adverse Reactions, Alerts Allergen Type Severity Reaction Last Updated Verified Status Comments diclofenac Allergy Unknown Hives September 19, 2025 10:18am Yes Active doxycyclineAllergyUnknownHivesNovember 2024 10:18amYesActivemoxifloxacin AllergyUnknownHives[facility] 20[facility] 10:18amYesActiveerythromycin baseAllergy UnknownHivesNovember 2024 10:18amYesActivePt has tolerated azithromycin without issue.latexAllergyUnknownUnknown ReactionNovember 2024 10:18amYes ActiveQuinolonesAllergyUnknownUnknown ReactionNovla [facility] 2024 10:18amYes ActivetetracyclineAllergyUnknownUnknown ReactionNovla [facility] 2024 10:18amYes Active Social History Smoking Status Status Start Date End Date Date of Observa tion Never smoked tobacco (finding) September 06, 2025 7:57am Observation Status Observation Response Date of Response Legal Sex Female (finding) Sex Assigned At BirthFemaleNovember 1954 Family History Relationship Condition Age at Onset Recorded Date/T levar brother Malignant neoplasm Unknown HypertensionUnknownChronic obstructive pulmonary diseaseUnknownAlcoholismUnknown fatherDeceasedUnknownMalignant neoplasmUnknownAsthmaUnknownPulmonary emphysema UnknownHypertensionUnknownAlcoholismUnknownfamily memberDeceasedUnknown grandparentDiabetes mellitusUnknownmotherMalignant neoplasmUnknownHeart disease UnknownHypertensionUnknownDeceasedUnknownsisterMalignant neoplasmUnknown Problems Active Problems Problem Diagnosis/Recorded Date Onset Date Status C omments History of tobacco abuse March 21, 2024 10:27am Unknown Active 1ppd x 20 years, quit 2002 Abnormal liver ultrasound October 06, 2024 2:51pm Unknown Active Acute thoracic back painMay 2020 8:06pmUnknownActiveUTI (urinary tract infection)November 27, 2020 4:30pmUnknownActiveUTI (urinary tract infection) January 28, 2023 2:51amUnknownActive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December 2022 1:22pmUnknownActiveHistory of 2019 novel coronavirus disease (COVID-19)December 18, 2021 3:19pmUnknownActiveHistory of COVID-19Ma2023 10:01diKwpxtxiJsuxbg78/2023Refractory chronic coughMarch 2023 10:57amUnknownActiveImmunosuppressionMarch 2022 2:51amUnknownActiveLiver lesionNovember 2023 3:20pmUnknownActiveAcute right hip painSeptember 2020 3:39pmUnknownActiveFamily history of colon cancerNovember 2017 9:13am UnknownActiveHemorrhoids, complicatedJanuary 2024 4:32pmUnknownActive Thrombocytopenia due to sequestrationJanuary 2017 4:26pmUnknownActive Spontaneous bacterial peritonitisJune 2023 8:04amUnknownActiveMaxillary sinusitis, chronicMay 2023 10:44amUnknownActiveSinus CT 01/25/2024 - Bilateral moderate sinusitis, mild ethmoid sinusitisEpistaxisJune 2018 3:45pmUnknownActiveRhinovirus infectionJune 2023 8:52amUnknownActive HematuriaJanuary 2020 9:73hhIuvqeogHunefjNQ5 (diabetes mellitus, type 2) March 21, 2024 10:40amUnknownActiveHepatocellular carcinomaJanuary 2024 4:31pmUnknownActiveAnxietyNovember 2024 9:52amUnknownActiveBacteremiaJune 2023 8:04amUnknownActiveClaustrophobiaNovember 2023 3:25pmUnknown ActiveSeptic shockJune 2023 11:15amUnknownActiveEncounter for coordination of complex careMay 2022 8:41amUnknownActiveEncounter for chemotherapy managementOctober 2021 4:27pmUnknownActiveNeutropenia, unspecifiedJanuary 2017 4:27pmUnknownActive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)November 24, 2017 4:27pmUnknownActiveEncounter for antineoplastic immunotherapyJanuary 2020 8:59amUnknownActivePancytopenia January 28, 2023 4:48amUnknownActiveCancer associated painApril 2024 7:08am UnknownActiveCancer-related painMay 2019 2:03pmUnknownActiveAbnormal CXR (chest x-ray)June 27, 2024 9:32amUnknownActiveBone marrow hypocellularityMay 2022 8:38amUnknownActiveThrombocytopeniaJune 2018 3:45pmUnknown ActiveUreterolithiasisJanuary 2020 4:30pmUnknownActive HypogammaglobulinemiaMarch 2022 11:54amUnknownActiveAdjustment disorder with mixed anxiety and depressed moodJune 2024 8:48amUnknownActive Bilateral leg painFebruary 2024 1:09pmUnknownActiveIron deficiency anemia December 29, 2024 1:09pmUnknownActiveAcute metabolic encephalopathyJune 2023 11:15amUnknownActiveBMI 30.0-30.9,adultMay 2023 10:41amUnknownActive Aneurysm of ascending aortaJune 2018 7:35pmUnknownActiveDegenerative cervical spinal stenosisJuly 2020 9:42pmUnknownActiveChronic pain syndrome October 24, 2024 6:46amUnknownActiveParoxysmal atrial fibrillationJune 2023 10:56amUnknownActiveCOPD (chronic obstructive pulmonary disease)April 18, 2019 11:00amUnknownActivePFT: 02/24/2024-FEV1/FVC: 70%-FEV1: 87%-FVC: 95%-BKJ59-54%: 60% -Bronchodilator response: None -RV: 118%-T%-DLCO: 71%-Flow-volume loop: Mild obstructionBlood in stoolNovember 2017 9:12am UnknownActiveSmoldering myelomaAugust 2023 7:34amUnknownActiveGERD (gastroesophageal reflux disease)September 15, 2018 9:12amUnknownActive Chemotherapy-induced neutropeniaDecember 2021 1:16pmUnknownActiveChest painJune 2018 7:35pmUnknownActiveHemorrhoidsJuly 2023 12:38pmUnknown ActiveNauseaMarch 2023 10:03amUnknownActiveNauseaApril 2024 2:07pm UnknownActiveMultiple myelomaSeptember 2020 2:32pmUnknownActiveMultiple myelomaApril 2019 2:49pmUnknownActiveObesityJanuary 2017 4:28pm UnknownActiveIron deficiencyJanuary 2017 4:27pmUnknownActiveChronic copper deficiencySeptember 2022 12:32pmUnknownActiveHypomagnesemiaFebruary 2024 1:10pmUnknownActiveInactive/Resolved Problems Problem Diagnosis/Recorded Date Onset Date Status C omments Acute alteration in mental status April 10, 2024 8:34pm Unknown Resolved COVID-19November 2022 12:15pmUnknownResolvedCOVID-19February 2023 3:25pmUnknownResolvedDiabetes mellitusJanuary 2017 4:28pmUnknownResolved CoughMarch 2023 11:12amUnknownResolvedFibromyalgiaJanuary 2017 4:28pmUnknownResolvedFrontal sinusitisJanuary 2022 6:54pmUnknownResolved Smoldering multiple myeloma (SMM)November 24, 2017 4:24pmUnknownResolved Medications Medication Status Dose Units Route Directions Qty Days Refills S tart Date Stop Date End Date Reason(s) Instructions Adherence Oxycodone 10 mg tablet Discontinued 10 MG PO EVER Y 4-6 HOURS as needed for Pain December 31, 2023 1:43pmFebruary 2023 1:47pmOxycodone 10 mg tablet Krgyjjujvzfx35VXLOILOBD 4-6 HOURS as needed for Jnsb573646Wttolfhc 2023February 03, 2024 1:05pmNeoplasm related pain Neoplasm related pain (acute) (chronic)Oxycodone 10 mg cdbcqbIeispsszsztw07ZPYL EVERY 4-6 HOURS as needed for Bloo958308Umelv 2023Ma2023 12:52pm Neoplasm related pain Neoplasm related pain (acute) (chronic)Potassium Chloride 10 mEq capsule, extended releaseDiscontinued0.ROUTE.QQKRLAX129Jpgwn 2023 12:08pmSeptember 2023 12:55pmMultiple myeloma Multiple myeloma not having achieved remissionTAKE 1 CAPSULE BY MOUTH EVERY DAY Ondansetron 8 mg tablet,mhapzzmhkiqaayCuzvfiqvehhr3YXAGCiuyk times daily as needed for Eavqgf669Hxvjs 2023 8:26amJune 2023 5:01pmGabapentin 400 mg klxxrdoYodnnvmbbnih476BBDLHqijm times uxtyt24924Uanhf 2023 9:48amJune 2023 12:17pmpainOxycodone 10 mg yrsmefJmirfcibihwu29AKXSMIKTG 4-6 HOURS as needed for Ugod567163Hen 2023May 2023 1:10pmNeoplasm related pain Neoplasm related pain (acute) (chronic)Ueaxgvlvko-Gfxnrbry-Bqdolhquml (Breztri Aerosphere) 160-9-4.8 mcg/actuation HFA aerosol yopulrjXbiikpigagsc3SBS INHALATIONTwice daily10.83785Dswj2023 9:59amJune 2023 5:02pm Gabapentin 400 mg tcojfkkOebydpleqhyg823DQDRFdtwn cgxfv46554Fujj 2023 8:43amAugust 2023 8:48ampainOxycodone 10 mg hajceiMwsrdqsmszet89HTTHLizd times daily as needed for Njjg946048Vbtp 2023July 2023 3:05pmNeoplasm related pain Neoplasm related pain (acute) (chronic)Oxycodone 10 mg pdexxdOnxohnuzthpl39VIPK Four times daily as needed for Fclz137185Uxmx , ugust 2023 8:48am Neoplasm related pain Neoplasm related pain (acute) (chronic)Ondansetron 8 mg tablet,disintegrating Iqlgjlatuwvq3UJQBIhibs 8 hours as needed for nausea and ocslsmyg747Xkqpvw 2023 9:39amDecember 2023 12:40pmSodium Chloride 0.9 % solution for tiufhudrgjntBkaragbscdch3MOAQFJQPNHLAGcuox 12 hikpb4759842Wrpjtj 25th, 2024 11:00pmAugust 2023 1:12ueDecqdfiayi-Tmsayjhd-Qpxegcldlj (Breztri Aerosphere) 160-9-4.8 mcg/actuation HFA aerosol cguzaouZzutgz7CTFUMSSZOOLOOWjnex daily10.2023 9:11amComplies with drug therapyOxycodone 10 mg pdjsljPrqjdlumfhvg39CHOVQPXNH 4-6 HOURS as needed for Gtmt545136Ohmrbiiej 2023October 2023 10:55amNeoplasm related pain Neoplasm related pain (acute) (chronic)Potassium Chloride 10 mEq capsule, extended releaseDiscontinued0.ROUTE.UMKRVEX328Jsymksrvs 2023 12:55pm December 12, 2024 3:24pmMultiple myeloma Multiple myeloma not having achieved remissionTAKE 1 CAPSULE BY MOUTH EVERY DAY Lorazepam (Ativan) 0.5 mg tabletDiscontinued0.5MGPOOnce as needed for claustrophobia from QOB471Xqitneea 2023 12:00amSeptember 2024 9:43am Claustrophobia ClaustrophobiaTake 1 tablet 30 minutes before scheduled MRI time; take second tablet only if needed for claustrophobia/anxiety related to MRIOxycodone 10 mg uoncblIatniphyzqau21YCSHJQWVJ 4-6 HOURS as needed for Mvur635584Gwtaxgdk ecember 2023 11:20amNeoplasm related pain Neoplasm related pain (acute) (chronic)Ondansetron 8 mg tablet,disintegrating Zraurazxhqrh3FFBKLnyhn 8 hours as needed for nausea and uyxxlfus291Rxfzlodb 2023 12:39pmMarch 2024 9:21amOxycodone 10 mg qlecwlNkuachwcocxf48WE POEVERY 4-6 HOURS as needed for Ullk167706Asdwnyg 2024January 2024 1:20pmNeoplasm related pain Neoplasm related pain (acute) (chronic)Oxycodone 10 mg ozgujeNeskizfbdcdf00YLWN EVERY 4-6 HOURS as needed for Icro065750Mvzbcue 2024February 2024 12:06pmNeoplasm related pain Neoplasm related pain (acute) (chronic)Potassium Chloride 10 mEq capsule, extended releaseDiscontinued0.ROUTE.YNEUNNZ517Fghwarfd 2024 3:24pm July 25, 2025 10:55amMultiple myeloma Multiple myeloma not having achieved remissionTAKE 1 CAPSULE BY MOUTH EVERY DAY Sulfamethoxazole-Trimethoprim 800-160 mg xghjblJbedro7XFYAAqkczb Thursday, Thursday, and Ksytme96773Fhxluhye 2024 9:54amHypogammaglobulinemia Nonfamilial hypogammaglobulinemiaComplies with drug therapyOxycodone 10 mg pizdvkYizxvcuspwvy11RJRSYPPIG 4-6 HOURS as needed for Lcjv908619Qvmzx 2024February 21, 2025 12:53pmNeoplasm related pain Neoplasm related pain (acute) (chronic)Magnesium Oxide 400 mg (241.3 mg magnesium) tabletDiscontinued0.ROUTE.VDBBJIV307Qkaxj 2024 2:13pmSeptember 2024 9:03amTAKE 1 TABLET BY MOUTH EVERY DAYOndansetron 8 mg tablet,rczbemovnhmgtkBpxoberypllb4VQPXWylnc 8 hours as needed for nausea and qwlvqyue968Sjgxo 2024 9:20amApril 2024 2:06pmOxycodone 10 mg tablet Vnbokweaoutm90YASXJCFJG 4-6 HOURS as needed for Euts232327Phlue 2024May 2024 9:34amNeoplasm related pain Neoplasm related pain (acute) (chronic)Oxycodone 10 mg xdrscaZtfoiqspvyiq05SVRE EVERY 4-6 HOURS as needed for Tfyw834571Uvf 2024June 2024 8:53am Neoplasm related pain Neoplasm related pain (acute) (chronic)Ondansetron 8 mg tablet,disintegrating Nnmqkroqxsdg1DMVNDexhu 8 hours as needed for nausea and xzyhszoh824Poib 2024 10:11amJuly 2024 9:53amDiazepam 5 mg wqbpjpPrdxuhvwmyzf7CSMO.COMPLEX as needed for xvyjwes930Glyf 2024 1:14pmJune 2024 7:45am Claustrophobia Claustrophobia5 mg orally 1 dose 30 minutes prior to PET scan, may repeat once 5 minutes before PRN;Pantoprazole 40 mg tablet,delayed release (DR/EC)Active0 .ROUTE.YXZHPDD1474Mftw 2024 9:40amTAKE 1 TABLET BY MOUTH TWICE A DAY Complies with drug therapyOndansetron 8 mg tablet,nrppqvbkxqseytAwuxlyfqlvjj3QT POEvery 8 hours as needed for nausea and agrqgoat542Jmgy 2024 9:52amAugust 2024 11:51amCefpodoxime 100 mg txsojdJxkdkdcpkfxh092FPISWgjum tkdjl663Udwd 2024 11:00pmAugust 2024 8:37ammust administer with a meal/food Fosfomycin Tromethamine 3 gram qayjxhYuewppdmjmax5ZCLPEWWC.SPHOQJL16Jtmh 2024 11:00pmAugust 2024 8:37am1 packet orally Q5 days;Morphine 15 mg tablet extended afsdkpvUrjyjmwrnxpf13QEWSHhyid 12 clggj26087Dekita 2024July 19, 2025 9:29amNeoplasm related pain Hepatocellular carcinoma Neoplasm related pain (acute) (chronic) Liver cell carcinomaOxycodone 10 mg ujzrmzGvxodhpysftd01PZSPMqiwy 4 hours as needed for Kcwr443821Cvxodz 2024 10:14amNeoplasm related pain Neoplasm related pain (acute) (chronic)Oxycodone 10 mg zztacxVejxmsqjqgko85NQFK Every 4 hours as needed for Mplr781441Dvuagw 2024Sept2024 9:29amNeoplasm related pain Neoplasm related pain (acute) (chronic)Ondansetron 8 mg tablet,disintegrating Jzflaqqdjwgy4KIDNQbzof 8 hours as needed for nausea and dienwity154Gtbmue 2024 11:51amOctober 2024 9:07amPotassium Chloride 10 mEq capsule, extended releaseActive0.ROUTE.BKSGXDQ327Qbeyxcqte 23rd, 2025 10:55amMultiple myeloma Multiple myeloma not having achieved remissionTAKE 1 CAPSULE BY MOUTH EVERY DAY Complies with drug therapyMagnesium Oxide 400 mg (241.3 mg magnesium) tablet Active0.ROUTE.WPQACKH535Vxmswhmqw 26th, 2025 9:03amTAKE 1 TABLET BY MOUTH EVERY DAYComplies with drug therapyProchlorperazine Maleate 10 mg hizfzxKavmpvurfidi89 MGPOTwice daily as needed for nausea and msyffhpb758Pgpbxxoqu 25th, 2025 11:00pm August 04, 2025 10:39amProchlorperazine Maleate 10 mg stsnpwDamwur71CPHKRrqjl daily as needed for nausea and ublcyeey97904Oqhdfcc 2024 10:38amComplies with drug therapyDiazepam 5 mg lbkuvwVleplmzbgscs0BQEO.YLZSIRX025Qazmhrxo 11th, 2025 12:00amNovember 2024 12:30pmAnxiety Anxiety disorder, unspecified5 mg orally take one tab 30 minutes prior to MRI may repeat x1 5minutes before if neededDiazepam 5 mg dcbddgSlcaqycuoxag3JMOW .MOCTDBU036Cikndxkl 2024 12:00amNovember 2024 10:19amAnxiety Anxiety disorder, unspecified5 mg orally Take one tab 30 minutes before MRI may repeat and take 5mg po 5min before MRI;Carvedilol 12.5 mg scdiiiVeakvy48.5MGPO Twice dailyJanuary 2017 12:00amComplies with drug therapyFerrous Sulfate 325 mg (65 mg iron) druzdjKfmdgdknczvf4PGZZHPyenv dailyJanuary 2017 12:00amJanuary 2017 2:03pmRosuvastatin 5 mg fvhqzxRbsauilmkkcn8DASBUDhffm November 20, 2017 12:00amJune 2018 1:01pmDuloxetine 60 mg capsule,delayed release(DR/EC)Qwreoh77CBEXKrnocJxnhmie 2017 12:00amComplies with drug therapyInsulin Detemir U-100 100 unit/mL (3 mL) insulin gqoCooitsmgkhuy93OBXLD SUBCUTDaily as needed for HyperglycemiaJanuary 2017 12:00amNovember 2022 8:37amInject 22 unites under the skin once daily only if blood sugar is greater than 140Oxycodone 10 mg mydkvaYthlxcsaigdm23VZWTUbgam daily as needed for PainJanuary 2017 12:00amFebruary 2023 1:44pmFluticasone Propion- Salmeterol (Advair Diskus) 250-50 mcg/dose Blister With TdxqnhJozrzrqkxjpk7SGB NAWRQTTXVPV63S as needed for Shortness Of BreathJanuary 2017 12:00amMarch 2022 7:28amAlbuterol Sulfate 90 mcg/actuation Hfa Aerosol Inhaler Dzqjxbglzihx6XFETCSJUIHNBZYK1O as needed for Shortness Of BreathJanuary 2017 12:00amAugust 2023 8:28amOmeprazole Magnesium (Prilosec Otc) 20 mg Tablet,Delayed Release (Dr/Ec)Aorllpsmdfby20BQVXSgtosFuupbvp 2017 12:00am March 24, 2024 1:01pmAlbuterol Sulfate (Proair Hfa) 90 mcg/actuation Hfa Aerosol CemaomcOixpsclgihyx0WFPIBGAKAPLAWRTLCHX 4-6 HOURS as needed for Shortness Of Breath Or WheezingJanuary 2017 12:00amJune 2018 10:58am Cyclobenzaprine 10 mg ursuauUcevqzqbxyhk89HTFFPjihs times daily as needed for Muscle SpasmFebruary 2018 10:50amJune 2018 1:01pmMetformin 500 mg Tablet Extended Release 24 RfWqixbdpjbvmo077TIGAVuewq dailyMay 2019 11:00pm April 19, 2024 12:14pmOndansetron Hcl (Zofran) 8 mg WmuuibRoqbwdmuumqj4EUOW Three times daily as needed for NauseaMay 2019 11:00pmJune 2019 12:45pmOndansetron Hcl (Zofran) 8 mg XyuiscLszicmhwhpjs2DRSSIwtsn times daily as needed for Qxbwmj267Eket 2019 12:45pmMarch 2022 7:36amDexamethasone 4 mg JswdevChptrddobstg80STKXZvza13673Ane 2019 11:00pmJune 2019 1:11pm Multiple myeloma Multiple myeloma not having achieved remissionAcyclovir 400 mg Tablet Vmkuxrteqbpj908PAUDQnzwe shzgq429234Qvy 2019 11:00pmSeptember 2019 8:50amMultiple myeloma Need for prophylactic antibiotic Multiple myeloma not having achieved remission intermodal customer service (current) use of antibioticsDexamethasone 4 mg LfoamnYziypmnnkpis92VH NFXvfb13276Xbbh 2019 1:11pmJanuary 2020 11:39amMultiple myeloma Multiple myeloma not having achieved remissionInsulin Nph Isoph U-100 Human (Novolin N Nph U-100 Insulin) 100 unit/mL WltzcixgtxHwywwvkbvjxa50XEBQMXHFSCOw DirectedJuly 2019 11:00pmMarch 2022 7:34amTake 15-20 units ater chemo on chemo daysDiazepam (Diazepam Intensol) 5 mg/mL ConcentrateDiscontinued0 .ROUTE.EENNDFT9327Yruc 2019 11:00pmJuly 2019 1:33pmAnxiety Anxiety disorder, unspecified5 mg orally 30 min prior to MRI, may repeat one dose 5 min prior to MRI if needed. Must have hyster driver.Diazepam (Valium) 5 mg CdjgzoNnehebckpfcg2JFRJZg DirectedJuly 2019 11:00pmJuly 2019 1:38pm Diazepam (Valium) 5 mg QdebhlBhliofgrgpyq6ZOVKGq Xeazpqkk207Vaty 2019 1:38pmJuly 2019 1:40pmClaustrophobia Claustrophobiatake 30 minutes before MRI, may repeat X1 five minutes before MRI if needed. Must have a driverDiazepam (Valium) 5 mg NybfkrBqzpczoxctwk6SGPKEk Jsftizps212Cget 2019 1:40pmMay 2020 3:08pmClaustrophobia Claustrophobiatake 30 minutes before MRI, may repeat X1 five minutes before MRI if needed. Must have a driverNystatin 100,000 unit/mL SuspensionDiscontinued 488074QSOOCWWCFMQvkkz565365Gmitug 2019 11:00pmJanuary 2022 10:47am Candidiasis of mouth Candidal stomatitis oral painadminister 1/2 of dose in each side of the mouthAcyclovir 400 mg Tablet Hkvymiyfbkli157MCOVSswlf hpzdp683940Ocqltrgfl 21st, 2020 8:50amMarch 2020 8:22amMultiple myeloma Need for prophylactic antibiotic Multiple myeloma not having achieved remission [facility] (current) use of antibioticsPotassium Chloride 10 mEq Tablet Extended PywshdlJwynegzqkylg37OTARDQwteo271Bvhojcb 2019 11:00pmOctober 2019 9:39amPotassium Chloride 10 mEq Capsule, Extended HeqymucErssrubufmqi68IWFNJ Elyxn168Yaotzmw 27th, 2020 11:00pmFebruary 2020 8:21amMultiple myeloma Multiple myeloma not having achieved remissionSemaglutide (Ozempic) 0.25 mg or 0.5 mg(2 mg/1.5 mL) Pen CqpthsauDbccquneynrg8DGOWLELIgilwq Nov2019 12:00amJune 2023 12:13pmCyanocobalamin (Vitamin B-12) 5,000 mcg PwzisfpZywdyxtwjtrz9669NCNEDriksq weekDecember 2019 12:00amMarch 2022 7:24amAzithromycin (Zithromax Z-Satya) 250 mg YkcqsvMrwvndlwtwla263SBEYQrnym November 26, 2020 12:00amMarch 2021 7:38amDexamethasone 4 mg Tablet Cfmzzufsdivw57SUSBHjpe03050Uosyjsd 2020 11:39amFebruary 2021 12:13pm Multiple myeloma Multiple myeloma not having achieved remissionPotassium Chloride 10 mEq Capsule, Extended XutdxttZqdamksxxkuj59NZKWEQisth876Svurwsps 2020 8:20amMay 2020 7:14amMultiple myeloma Multiple myeloma not having achieved remissionAcyclovir 400 mg Tablet Tgnrbxkxiovq777BZWUPmijk czgdk470035Ltoig 2020 8:22amSeptember 2020 8:45amMultiple myeloma Need for prophylactic antibiotic Multiple myeloma not having achieved remission [facility] (current) use of antibioticsPotassium Chloride 10 mEq Capsule, Extended CbgipsgOkpcxooboqgc75FDPCVMgcip630Tfp 2020 7:14amAugust 2020 7:07amMultiple myeloma Multiple myeloma not having achieved remissionVitamin P57-Lwekq Acid 0.5-1 mg GchsrmJcbjboajjwzp9PMUONNyxsfOeb 2020 11:00pmJune 2023 5:01pmDiazepam (Valium) 5 mg NrrceyYftoufrqrkhf8NFRKFr Oxgmuqxd919Lft 2020 3:08pmJune 2020 2:55pmClaustrophobia Claustrophobiatake 30 minutes before MRI, may repeat X1 five minutes before MRI if needed. Must have a driverDiazepam (Valium) 5 mg UsyxqxNxxvywozjvwo5SYLDBz Oztpnpsc305Aaap 2020 2:55pmSeptember 2020 2:02pmClaustrophobia Claustrophobiatake 30 minutes before MRI, may repeat X1 five minutes before MRI if needed. Must have a driverPotassium Chloride 10 mEq Capsule, Extended Release Kvmwceruufdf52CRORCRwdyx134Wqmqyp 2020 7:07amOctober 2020 11:20am Multiple myeloma Multiple myeloma not having achieved remissionOndansetron 8 mg Tablet,IdyfdpgdiikpoqIpmirvbyvahs4IRJZN7X as needed for Jtujhj833Ygvfbf 2020 9:53amDecember 2020 11:30amAcyclovir 400 mg SfkilvLlhhjrpthmpp038OOUG Twice grivx847013Rvlatbcme 1st, 2021 8:45amFebruary 2021 12:12pmMultiple myeloma Need for prophylactic antibiotic Multiple myeloma not having achieved remission [facility] (current) use of antibioticsDiazepam (Valium) 5 mg TabletDiscontinued5 MGPOAs Aitlxinw917Zjtacuwhw 2020 2:01pmMarch 2022 7:28am Claustrophobia Claustrophobiatake 30 minutes before MRI, may repeat X1 five minutes before MRI if needed. Must have a driverGabapentin 300 mg HpaatjYtwdfjvnvctn065JONEAklpp times dailySeptember 2020 11:00pmMarch 2022 7:29amPotassium Chloride 10 mEq Capsule, Extended ZrmrwrrOekcavijvrwk16FERQTIlnbg515Ffsmztr 2020 11:20amJanuary 2021 9:18amMultiple myeloma Multiple myeloma not having achieved remissionLenalidomide (Revlimid) 5 mg CapsuleDiscontinued0.ROUTE.PVUYFKS44592Zsgrwfe 2020 11:00pmNovember 2020 2:21pmMultiple myeloma Multiple myeloma not having achieved remission5 mg orally daily for 21 days, 7 days off;swallow whole with glass of water; do not open, crush, chew , break, or dissolveLenalidomide (Revlimid) 5 mg WjyxyvjFtarlxeccjnv5FABVSigbj239Fflubxc 2020 11:00pmNovember 2020 2:21pmSmoldering multiple myeloma Multiple myeloma not having achieved remissionTAKE ONE DAILY FOR 21 DAYS AND 7 DAYS OFF.ADULT FEMALE NOT OF REPRODUCTIVE POTENTIAL. AUTH#[id number] (Revlimid) 5 mg SmiosziVxepsyjcsvcz7OBAUJdtof027Iopedadw 2020 2:21pm October 18, 2021 2:27pmSmoldering multiple myeloma Multiple myeloma not having achieved remissionTAKE ONE DAILY FOR 21 DAYS AND 7 DAYS OFF.ADULT FEMALE NOT OF REPRODUCTIVE POTENTIAL. AUTH#[id number] (Revlimid) 5 mg KpfyrjhYyukebrduqtl3JPZGMjfbf233Ywfjykep 2020 2:26pm November 20, 2021 9:48amSmoldering multiple myeloma Multiple myeloma not having achieved remissionTAKE ONE DAILY FOR 14 DAYS AND 14 DAYS OFF.ADULT FEMALE NOT OF REPRODUCTIVE POTENTIAL. AUTH#[id number] 8 mg Tablet,TmuzpubmlklgcnHnlwrlovxutl6IFTEH1N as needed for Rqwinb430Msijmekl 2020 11:30amDecember 2020 11:32amOndansetron 8 mg Tablet,LkwrqufoqovqalLdfaybmchhhm0LAFPE2D as needed for Ziygwk866Vxhvfdbb 2020 11:32amAugust 2021 9:19amLenalidomide (Revlimid) 5 mg Capsule Rroxkgxnesdg3AUFMRlhrp642Whvjpmb 2021 9:48amFebruary 2021 4:03pm Smoldering multiple myeloma Multiple myeloma not having achieved remissionTAKE ONE DAILY FOR 14 DAYS AND 14 DAYS OFF.ADULT FEMALE NOT OF REPRODUCTIVE POTENTIAL. AUTH#[id number] Chloride 10 mEq Capsule, Extended GwijtlpGzetjhtlvoyc88UVMDDAlfhm348Fvdnbno 2021 9:18amApril 2021 7:34amMultiple myeloma Multiple myeloma not having achieved remissionDexamethasone 4 mg Tablet Zoeemxsicuwj04ZUWUVqno36610Gxjwcbww 2021 12:13pmMay 2021 8:22am Multiple myeloma Multiple myeloma not having achieved remissionAcyclovir 400 mg Tablet Xignafippsyg177DANVLbitt sgasl470028Gayjqmdn 2021 12:11pmNovember 2021 8:11amMultiple myeloma Need for prophylactic antibiotic Multiple myeloma not having achieved remission [facility] (current) use of antibioticsLenalidomide (Revlimid) 5 mg Capsule Kszzlazunvfb8TISENzqkb556Jyxbsgjk 2021 4:03pmApril 2021 7:21am Smoldering multiple myeloma Multiple myeloma not having achieved remissionTAKE ONE DAILY FOR 14 DAYS AND 14 DAYS OFF.ADULT FEMALE NOT OF REPRODUCTIVE POTENTIAL. AUTH#[id number] (Pomalyst) 3 mg JshwvmjJqxbxfowqjju5NPYUFplzu690Jchov 2021 11:00pmApril 2021 3:03pmPomalidomide (Pomalyst) 3 mg VwrrcnaGwkqknrgdjjl8IVLLXjlqp406 February 19, 2022 3:03pmMay 2021 8:06amSmoldering multiple myeloma Multiple myeloma not having achieved remissiontake 1 daily for 21 days of 28 day cycle.adult female not of reproductive potential AUTH#[id number] Chloride 10 mEq Capsule, Extended HxyvdigQyutwhdczcqy12DYJZWTuxuh145Iojpr 2021 7:34amJuly 2021 7:10amMultiple myeloma Multiple myeloma not having achieved remissionPomalidomide (Pomalyst) 2 mg WzowbgmNneatspitmct8LKSGMvwaz18830Eaa 2021 11:00pmMay 2021 9:35am Multiple myeloma Multiple myeloma not having achieved remissionPomalidomide (Pomalyst) 2 mg UivjyktFsgtwqkbrfxt7VVFHVxdui61588Mds 2021 9:35amJune 2021 2:37pm Multiple myeloma Multiple myeloma not having achieved remissionTAKE 1 DAILY FOR 14 DAYS OF 28 DAY CYCLE.FEMALE NOT OF REPRODUCTIVE POTENTIAL AUTH#[id number] 4 mg Tablet Wrfrmcbqfqyt14BGIIByyv04435Jlt 2021 8:22amMarch 2022 7:27amMultiple myeloma Multiple myeloma not having achieved remissionLactulose 20 gram/30 mL Solution Aqiuxugfmxgk70QVWOCssej daily as needed for Lvkkezmayoig8458Dclx 2021 10:43amDecember 2022 11:31amPomalidomide (Pomalyst) 2 mg Capsule Jlzsldkohzvi8WWQWWalwi32175Fjla 2021 2:37pmJune 2021 1:24pmMultiple myeloma Multiple myeloma not having achieved remissionTAKE 1 DAILY FOR 14 DAYS OF 28 DAY CYCLE.FEMALE NOT OF REPRODUCTIVE POTENTIAL AUTH#[id number] (Pomalyst) 2 mg AenopebVojhqbelchmh8JPJSHbour75827Uffy 2021 1:24pmJuly 2021 3:14pmMultiple myeloma Multiple myeloma not having achieved remissionTAKE 1 DAILY FOR 14 DAYS OF 28 DAY CYCLE.FEMALE NOT OF REPRODUCTIVE POTENTIAL AUTH#[id number] (Pomalyst) 2 mg HqfdncrVbdpmcaevnbr7FOVCUcmvm20482Pyca 2021 3:14pmAugust 2021 2:14pmMultiple myeloma Multiple myeloma not having achieved remissionTAKE 1 DAILY FOR 14 DAYS OF 28 DAY CYCLE.FEMALE NOT OF REPRODUCTIVE POTENTIAL AUTH#[id number] Chloride 10 mEq Capsule, Extended RoguzpmBqvbqqkynbgz52QJXHUJmkav355Edcm 2021 7:10am August 18, 2022 7:14amMultiple myeloma Multiple myeloma not having achieved remissionOndansetron 8 mg Tablet,ZakujuquhyonuzNhfxdqhrwzuu7AZBDF5D as needed for Zdhhhb555Zlsknl2021 9:18amMarch 2022 7:36amPomalidomide (Pomalyst) 2 mg Capsule Ippbokwxkqfq5JMYBPckpj30470Mfetqz 2021 2:14pmDecember 2021 10:29am Multiple myeloma Multiple myeloma not having achieved remissionTAKE 1 DAILY FOR 14 DAYS OF 28 DAY CYCLE.FEMALE NOT OF REPRODUCTIVE POTENTIAL AUTH#[id number] 4 mg Tablet Gvljahnazqpy77CBBGRbrw207Jfqdordmf 2021 11:00pmMarch 2022 7:25am Dexamethasone 4 mg BvowojMwyafaidcalj14HKPNOobc863Dbbehkg 2021 11:00pm January 09, 2023 10:42amPotassium Chloride 10 mEq Capsule, Extended Release Isttvletuzty27VQQLRAvvbq510Jneirlx 2021 7:14amJanuary 2022 8:32am Multiple myeloma Multiple myeloma not having achieved remissionAcyclovir 400 mg Tablet Aadhxvjktonn497OYJTCabqe trjrv664560Kvulxfji 2021 8:11amJanuary 2024 10:30amMultiple myeloma Need for prophylactic antibiotic Multiple myeloma not having achieved remission inter[facility] customer service (current) use of antibioticsNystatin 100,000 unit/mL Suspension Lrwlcejbfapw9UCTNPhvi times nbzqy6782Pmhnuvtc 2021 12:00amJanuary 2022 10:47amswish and swallowPotassium Chloride 10 mEq Capsule, Extended Release Qiqiqumayyij39WGUGXZamie592Gbazcyo 2022 8:32amJuly 2022 7:37am Multiple myeloma Multiple myeloma not having achieved remissionLevofloxacin (Levaquin) 750 mg EhtxebWacaxwhsgkqu939NDTRAbdcyUlrxudj 2022 12:00amJanuary 2022 11:19amAmoxicillin-Pot Clavulanate (Augmentin) 875-125 mg CzdwbuMgbxojljitff7DVQ POTwice dailyJanuary 2022 12:00amJanuary 2022 11:23amAmoxicillin-Pot Clavulanate 875-125 mg HvssvtUuqjgjilyvpd1UNVXFSbnza ymzoi05932Jvlsuab 2022 11:23amFebruary 2022 9:37amLoratadine (Claritin) 10 mg Tablet Svrwrgarhvvl07OWVAVdctyDrrbknuj 2022 12:00amMay 2023 9:56am Fluconazole (Diflucan) 100 mg JctzfmLxxmfrvgoonj197WYMURyefvNjgajtlk 2022 12:00amFebruary 2022 10:01amAmoxicillin-Pot Clavulanate (Augmentin) 875- 125 mg VjwdopWmylfwqbeygj6QLYTJFgtpv dailyFebruary 2022 12:00amFebruary 2022 10:01amFluconazole (Diflucan) 100 mg AcnogdIawjvkubjubt571MGNQUugnl69 0February 2022 10:01amMarch 2022 7:28amAmoxicillin-Pot Clavulanate 875-125 mg FrwjrtBgzczawotcuc6EMLJMJwdsq vletl08521Wavdovmi 2022 10:01am January 28, 2023 7:23amAzithromycin (Zithromax Z-Satya) 250 mg TabletDiscontinued0 MGPO.COMPLEXMarch 2022 11:00pmMarch 2022 8:54amFor 250 mg dose pack: take 500 mg today (day 1), then 250 mg for 4 days (days 2-5)Azithromycin (Zithromax Z-Satya) 250 mg XcqacdDdqrkxpganmq4KHUY.YZICBXC87Doimh 2022 8:52amApril 2022 8:29amFor 250 mg dose pack: take 500 mg today (day 1), then 250 mg for 4 days (days 2-5)Ondansetron 8 mg tablet,disintegrating Evhkgngtwkwi6KNSSSrgru times daily as needed for Kybfyg883Lmkek 2022 1:32pmSeptember 2022 10:17amPotassium Chloride 10 mEq Capsule, Extended CdkiwrwEnujwtvpasei63ESEBSOcayg223Stxa 2022 7:37amJanuary 2023 8:33am Multiple myeloma Multiple myeloma not having achieved remissionOndansetron 8 mg tablet,nfmhkojigxvesiXxkopvquelrm7PSNMBuiad times daily as needed for Ulvzog949 Pallavi 2022 10:17amDecember 2022 12:19pmPolyethylene Glycol 3350 (Miralax) 17 gram Powder In YpeaedMycxwwukwpdm29NRUEUykzjSmlbsypo 2022 12:00amJune 2023 5:01pmSulfamethoxazole-Trimethoprim 800-160 mg Tablet Maxdzbykzdxo2LNTMKcqejt Thursday, Thursday, and Hztlce74262Efwczijl 2022 12:00amFebruary 2024 9:55amHypogammaglobulinemia Nonfamilial hypogammaglobulinemiaOndansetron 8 mg tablet,disintegrating Nkwumwkswpiv1DVNWLmacm times daily as needed for Yzzbgp866Iijzymoq 2022 12:19pmApril 2023 8:26amPotassium Chloride 10 mEq Capsule, Extended AxilmazPawlifbxnbuf39TCTPINvziz571Yclmcvd 2023 8:33amApril 2023 12:08pmMultiple myeloma Multiple myeloma not having achieved remissionTemazepam (Restoril) 30 mg Capsule Mtniubpppiwv68RRTKBljho at bedtime as needed for SleepNovember 2017 12:00amJune 2018 1:02pmCholecalciferol (Vitamin D3) (Vitamin D3) 5,000 unit UikoxbLswwnixnbskc7260ZZQPIABslqtQvqslgmh 2017 12:[facility]am[facility] 8:39amCyanocobalamin (Vitamin B-12) 1,000 mcg FhjiilvEjcogcdtldqy3421VWZCC DailyNovember 2017 12:00am[facility] 2:13pmCyclobenzaprine 10 mg sclgnzMsbcokutbvib82KJUJPpikp times vozht779Hqqvebjl 2017 12:00amFebruary 2018 10:50amPrednisone 20 mg fnqjcbOfwqedxmltdq46PBJIBzwlg6355Lmlklpbc 2017 12:[facility]am[facility] 12:01am Cholecalciferol (Vitamin D3) (Vitamin D3) 1,000 unit GwykisnBnwjqbmupbpx9829PLOT PODailyJune 2018 11:00pm[facility] 2022 7:24amCephalexin (Keflex) 500 mg jkcywpjGhxqjlqaxxon591HIGKSkjof otxpa1016Ssckknv 2020 12:00[facility] 10:01amNirmatrelvir-Ritonavir (Paxlovid (Eua)) 300 mg (150 mg x 2)-100 mg tablets,dose stviJmnnrhvfxteq8YX.LLJVPOX959Vefvvucb 2022 12:00[facility] 2022 9:52amorally per package directionsMorphine 15 mg tablet extended ynscezfAlzjmovijbnh74VSZQRcgra 12 fptpg76853Zeizvnoyg 2024October 2024 9:07amNeoplasm related pain Hepatocellular carcinoma Neoplasm related pain (acute) (chronic) Liver cell carcinomaOxycodone 10 mg jkhtzuCccdgebluduj77KHSSBjlrf 4 hours as needed for Otmo732143Youtuitgs 2024October 2024 9:07amNeoplasm related pain Neoplasm related pain (acute) (chronic)Cyanocobalamin (Vitamin B-12) 1,000 mcg tablet, nsorbtjfyuYcrdzq1097USVKTZQWKTYGOYhmftDnvwx 2022 11:00pmComplies with drug therapyDexamethasone 4 mg dtsvrxIepcnbcayova16IYBCYx Directed as needed for Systemic Signs And SymptomsMarch 2022 7:27amMarch 2023 10:17amtake 5 tablest by mouth at once when directed related to chemotherapy scheduleFluticasone Propionate 50 mcg/actuation Severy,WquhpeyttsFnnysv7GHEBX INTRANASALDaily as needed for Allergy SymptomsMarch 2022 11:00pmadminister into each nostrilComplies with drug therapyLisinopril 5 mg pnodguHavapydovukf0CV PODailyMarch 2022 11:00pmMay 2023 9:56amInsulin Aspart U-100 (Novolog Flexpen U-100 Insulin) 100 unit/mL (3 mL) Insulin IlcLrqndvqepncs31BUGG SUBCUTDaily as needed for HyperglycemiaMar 2022 11:00pmJune 2023 8:15pmINJECT 25 UNITS UNDER THE SKIN ON CHEMO DAYS AFTER CHEMOOndansetron 8 mg tablet,edhonssoezyynfSydlykarcvqa7KJISEsczj times daily as needed for Nausea January 28, 2023 7:36amApril 2022 1:32pmAtorvastatin 80 mg tablet Bmsjejmzqups83MNKUDbnqdPlesj 2022 11:00pmJune 2023 12:14pm Phenazopyridine 100 mg UbkzyuBcgqirovypaa792OUSYYsdhx times daily as needed for Ucqv847Aisch 2022 11:00pmApril 2022 8:20amCephalexin 500 mg capsule Xnwcgpwltigy551QJEDMqqqy ocztm6168Pulyd 2022 11:00pmApril 2022 8:29amGabapentin 400 mg StzwhsnBuwemkefpxsy824GWEUEubnr times dailyApril 2022 11:00pmApril 2023 9:49ampainCholecalciferol (Vitamin D3) 125 mcg (5,000 unit) fiodtspPxldas455QISQKFxmzmHcxu 2023 11:00pmFreeTextSig: as directed Orally 2 capsules 4 days a week, 3 capsules 3 days a week.; Note: Source Status: Not-Taking\PRN; Provider: Gallo Wilson ( ) Complies with drug therapyEpinephrine 0.3 mg/0.3 mL auto-injectorActive0.3MGIM Once as needed for anaphylaxisJune 2023 11:00pmComplies with drug therapy Lisinopril 5 mg jxrdcnXytgmyemcmlx3DKMAWnyjqOfnz 2023 11:00pmOctober 2023 10:32amOmeprazole 40 mg capsule,delayed release(DR/EC)Nnbsbinvxmcq14PRII DailyJun2023 11:00pmOctober 2023 10:33amFreeTextSi capsule Orally Once a day; Note: Source Status: Taking; Provider: Gallo Wilson ( )Ondansetron Hcl 8 mg iawjkbFwstrhzoejtp2DSQVM9W as needed for nausea and vomitingApre 2023 11:00pmJun2023 12:13pmFreeTextSig: TAKE 1 TABLET BY MOUTH 3 TIMES A DAY NEEDED FOR NAUSEA Oral; Note: Source Status: Taking; Refills: 3; Qty: 30 Unspecified; Provider: YVES AMYPrednisone 20 mg tabletDiscontinuedMGJune 2023 11:00pmJun2023 8:14pmOxycodone 10 mg qkjupyErfdxnrqavlz70BNNTVagl times daily as needed for PainJun2023 11:00pmJuly 2023 8:55amCefepime 2 gram Recon TmcxCaucrrufnxek2ZPQDP9A451341 April 14, 2024 11:00pmJuly 2023 12:28pmSpironolactone 50 mg Tablet Bhkiqcyzjsit51EACAWhblx629Eyhh 17th, 2024 11:00pmJuly 2023 12:28pm Furosemide 20 mg QdvixzJpzkuxhrdbvc31YHHTActwu at [id number] 11:00pm May 30, 2024 12:28pmMagnesium Oxide 420 mg esqqsxUzzzjcgjgblt624COQBQnwji999 April 18, 2024 11:00pmJuly 2023 12:28pmAtorvastatin 80 mg lsosfiQsomdc50 EKNYHqvyg48Ykab 2023 12:13pmComplies with drug therapyMetformin 500 mg Tablet Extended Release 24 RkZkproc873GGEHIurag04Iekw 18th, 2024 12:13pmComplies with drug therapyGabapentin 400 mg xkgmdyfWmhhpdsvbicq115GUTOVnova nswpe22003 April 19, 2024 12:17pmJune 2023 8:43ampainOxycodone 10 mg tablet Emhafrlyaajn19RXAEBrgdm 4 hours as needed for Zgju079595Woye 2024July 2024 10:49amNeoplasm related pain Neoplasm related pain (acute) (chronic)Morphine 15 mg tablet extended release Gfkaurndeqgn26SXNKBjplp 12 cvouw89728Ohjp 2024July 2024 8:05am Neoplasm related pain Hepatocellular carcinoma Neoplasm related pain (acute) (chronic) Liver cell carcinomaOxycodone 10 mg sdpctrMzvyiimtnwca92IZTOHhiuo 4 hours as needed for Dgul827646Taww ugu2024 10:14amNeoplasm related pain Neoplasm related pain (acute) (chronic)Morphine 15 mg tablet extended release Dpdvvfemgzmy43CWSJKosqk 12 recpp99963Czkbyp 2024 10:14am Neoplasm related pain Hepatocellular carcinoma Neoplasm related pain (acute) (chronic) Liver cell carcinomaOndansetron 8 mg tablet,jgnobnprriirlvEagxbdvjygex9UXAYVeznt daily as needed for nausea and iinwwqxg74987Abcamoi 2024 9:07amNovember 2024 10:00amMorphine 15 mg tablet extended mwcelbhPugnkgfptmkk56TXTRJxcrf 12 icejf41673Vrdarnm 2024Nov2024 10:00amNeoplasm related pain Hepatocellular carcinoma Neoplasm related pain (acute) (chronic) Liver cell carcinomaOxycodone 10 mg cuabttIjycrrtklbrf20LYZXQklkr 4 hours as needed for Fxvk807861Jdwhmfz 2024 10:00amNeoplasm related pain Neoplasm related pain (acute) (chronic)Ondansetron 8 mg tablet,disintegrating Gvihoy4KGHIFdluh daily as needed for nausea and ewxmnupj51056Qrohowgl 5th, 2025 10:00amComplies with drug therapyMorphine 15 mg tablet extended lweqavtAhlnuj83 MGPOEvery 12 fggdd79866Jpgsnqgy 2024Neoplasm related pain Hepatocellular carcinoma Neoplasm related pain (acute) (chronic) Liver cell carcinomaComplies with drug therapyOxycodone 10 mg ytjkeeRtufpq36MPJD Every 4 hours as needed for Ffux783454Kqccyzuk 2024Neoplasm related pain Neoplasm related pain (acute) (chronic)Complies with drug therapyPromethazine 25 mg zfmjteYoqzxfolzhgi25VLWIQzcks times daily as needed for nausea and pbbtztad85 300March 2023 11:00pmMarch 2023 11:20amOlanzapine 2.5 mg tablet Discontinued2.5MGPODaily at kvsyzzl58808Wwomh 2023 11:00pmMay 2023 1:02pmSumatriptan Succinate 50 mg qemrlxQvlsvhlwtcbq1TS.COMPLEXMay 2023 11:00pmJune 2024 7:46amtake 1 tab at onset of headache; if no relief may repeat 1 tab after at least 2 hrs; max = 4 tabs/24 hr PONaloxone 4 mg/actuation spray,non-bfnmfmcJdeqgt3UWIYRZDPRGFNZABsorvq 2 to 3 minutes as needed for opioid overdoseMay 2023 11:00pmspray 1 dose into ONE nostril; alternate nostrils w each dose until help arrivesComplies with drug therapyMelatonin 1 mg tablet Jmmnrn8DNGOAdqgd at bedtimeMay 2023 11:00pmComplies with drug therapy Teclistamab-Cqyv (Tecvayli) 10 mg/mL solutionDiscontinuedSUBCUTMay 2023 11:00pmMarch 21, 2024 10:10amAlbuterol Sulfate 2.5 mg /3 mL (0.083 %) solution for nebulizationDiscontinued2.5MGINHALATIONEvery 6 hoursMay 2023 11:00pm June 29, 2024 8:28amTeclistamab-Cqyv (Tecvayli) 10 mg/mL solution DiscontinuedSUBCUTMa2023 10:09amJuly 2023 12:28pmOn Hold: Resume on 05/06/24. Hold until recommended to be resumed by your primary care doctor and your multiple myeloma specialist patient is unsure of dose at this timeSodium Chloride 3 % solution for ckzmwwgpasyoFkhnpr5CCJVKUYLHKFYBlzut times tkxum238869Kznnnp2023 11:00pm Chronic obstructive pulmonary disease Chronic obstructive pulmonary disease, unspecifiedOn Hold: changing doseComplies with drug therapySodium Chloride 0.9 % solution for gokcodzizbulTgqtui6IW INHALATIONEvery 12 gkxsr3832411Norwge 2023 1:55pmComplies with drug bdmabcoPmmbbiserb-Yhakhbej-Ladxmrjeky (Breztri Aerosphere) 160-9-4.8 mcg/actuation HFA aerosol mgrhxogBbwpzebsdler4VRVPHFCUZTVKJBoyyl dailyAugust 2023 11:00pmAugust 2023 9:12amGabapentin 400 mg capsuleDiscontinued 400MGPOThree times wzjkx56081Vnqwnh 2023 8:46amOctober 2023 10:55am Oxycodone 10 mg qelablHorjuveigoho72RUWKTSVXR 4-6 HOURS as needed for Soaf321213 June 28, 2024September 2023 12:27pmNeoplasm related pain Neoplasm related pain (acute) (chronic)Oxycodone 10 mg gjjyqfTtyokkzkzcst57HJXV EVERY 4-6 HOURS as needed for Cxrq147833Clcwcbqd 2023January 2024 1:11pmNeoplasm related pain Neoplasm related pain (acute) (chronic)Hydrocortisone-Pramoxine 25-18 mg npzgqsiqowuMlreho1DRFLGXFfwjc wgdxt942Pkjvdrv 2024 12:00amComplies with drug therapyAcyclovir 400 mg nkpkyvPlkfyd233KCNARaztp ifwoh382733Dpsqwng 2024 10:30amMultiple myeloma Need for prophylactic antibiotic Multiple myeloma not having achieved remission inter[employer] customer service (current) use of antibioticsComplies with drug therapyLidocaine 5 % foxvxLqmwdz7BHGTCUVKIOFTQYlzql daily as needed for wcdm696PpmcdfyNovember 16, 2024 12:00amComplies with drug therapyHydrocortisone (Anusol-Hc) 2.5 % cream with perineal wghhubaqscYsggol6VRGJOJSA3-4 TIMES PER DAY as needed for lmtzjiqpfih926 November 16, 2024 12:00amComplies with drug therapySennosides (Senokot) 8.6 mg tabletActive8.6MGPODailyApril 2024 11:00pmComplies with drug therapy Pantoprazole 40 mg tablet,delayed release (DR/EC)Chqjmbgozjra80EUWSQapac daily April 20, 2025 8:06amJune 2024 8:07amPantoprazole 40 mg tablet,delayed release (DR/EC)Pguubwdyrfuq96QJKOXnvoc qhhcl482Ekrj 19th, 2025 8:07amJuly 2024 9:79xiDftzwobhyp-Yjmukidp-Epcgdbxsvz (Breztri Aerosphere) 160-9-4.8 mcg/actuation HFA aerosol ogbxxzaNnzxgvpbsbsb6AWLNIFSGAJSHGPuiqt dailyMay 2023 11:00pmJune 2023 10:00amPantoprazole 40 mg tablet,delayed release (DR/EC)Nqeytqtotpxk27ITQZVsmabJim 2023 11:00pmJune 2023 5:01pm Oxycodone 10 mg tghldmCxkjvfjvqxpt41LDLIKQEYR 4-6 HOURS as needed for Macd795344 March 24, 2024June 2023 5:02pmNeoplasm related pain Neoplasm related pain (acute) (chronic)Olanzapine 2.5 mg tabletDiscontinued2.5MG PODaily at bedtimeJuly 2023 11:00pmDecember 2023 11:18amOndansetron 8 mg tablet,dmfzrvtrlcdruhOvvyiyagznie3YIIYBhgjj 8 hours as neededJuly 2023 11:00pmAugust 2023 9:40amSemaglutide (Ozempic) 0.25 mg or 0.5 mg (2 mg/3 mL) pen injectorDiscontinuedMGSUBCUTJuly 2023 11:00pmAugust 2023 8:29amPrednisone 20 mg zvcaneReezrdszrqoo58IWYMFzqfmYjwj 2023 11:00pm June 29, 2024 8:29amLevofloxacin 750 mg bysibwJnmeiggymzdd719LUDEAizzuCvzm 2023 11:00pmNov2023 10:04amFurosemide (Lasix) 20 mg tablet Dsdzsy83FMFODraxj morningJuly 2023 11:00pmComplies with drug therapy Pantoprazole 40 mg tablet,delayed release (DR/EC)Luactybvzxud61QEQMIfpfoNzhswod 2023 11:00pmJune 2024 8:07amSemaglutide (Ozempic) 0.25 mg or 0.5 mg (2 mg/3 mL) pen injectorActive0.25MGSUBCUTevery weekOctober 2023 11:00pm for 4 weeksComplies with drug therapyGabapentin 400 mg ugzbewnSqyetylxspjr329ZT POThree times wygdv89553Irjcdut 2023 10:55amSept2024 9:43am Oxycodone 10 mg zeginyXbatkkxesjhv95QHFNXRFQL 4-6 HOURS as needed for Hqpi382505 August 26, 2024November 2023 8:59amNeoplasm related pain Neoplasm related pain (acute) (chronic)Cetirizine (Zyrtec) 10 mg tjarjqMgsrak54 MGPODaily as neededNov2023 12:00amComplies with drug therapyDiazepam 5 mg qrukrvUswbvfvpgcux9EWKZ.COMPLEX as needed for zorkkkc727Fucgrfgd 14th, 2024 12:00amJune 2024 1:15pmClaustrophobia Claustrophobia5 mg orally 1 dose 30 minutes prior to PET scan, may repeat once 5 minutes before PRN;Oxycodone 10 mg axfxnsJszprtnories39XBQSPQDZV 4-6 HOURS as needed for Gliy386893Jszppxdk 2024March 2024 8:22amNeoplasm related pain Neoplasm related pain (acute) (chronic)Magnesium Oxide 400 mg magnesium tablet Kjldsgrypzaw372UZZTRvmwe409Qgtkdemy 2024 12:00amMarc 2024 2:13pm Ondansetron 8 mg tablet,vvftuyoumnmohuAvfpeusqhpnc4TUPUVpski 8 hours as needed for nausea and ghgvipgc929Ymcar 2024 2:06pmJune 2024 10:11amMorphine 15 mg tablet extended lgizlmaTpxibrgdtlah25HASPKdkts 12 [id number] 2024July 2024 8:17amNeoplasm related pain Hepatocellular carcinoma Neoplasm related pain (acute) (chronic) Liver cell carcinomaMorphine 15 mg tablet extended mohdloeWdprtmfxqtwh40KWYB Every 12 [id number] ugust 2024 10:11amNeoplasm related pain Hepatocellular carcinoma Neoplasm related pain (acute) (chronic) Liver cell carcinomaTrazodone 50 mg rgtnnlYofsww50JZQNHsogz at bedtime as needed for [id number] 2024 11:00pmComplies with drug therapy Procedures Procedure Date Performed Status XR chest 2V* January 21, 2024 9:21am complete d CT chest w con January 25, 2024 1:52pm complete d CT sinus wo con January 25, 2024 1:52pm complete d PET NaF bone subq (nopr) September 21, 2024 12: 19pm completed MR abdomen wo/w con September 18, 2025 8:06am c ompleted PET tumor subq tx strat sb-mt November 16, 2017 12:00am completed XR bone survey May 31, 2018 6:43am completed XR bone survey July 01, 2019 9:41am complet ed PET tumor subq tx strat wb January 02, 2020 11:31 am completed XR femur BI January 31, 2020 9:57am complete d XR pelvis 1-2V January 31, 2020 9:57am complete d MR cervical spine wo con May 31, 2020 5:42am completed XR pre/post mri xray May 31, 2020 5:42am comp leted XR hand LT min 3V* November 19, 2020 10:13am co mpleted PET NaF bone subq (nopr) January 14, 2021 11:33a m completed MR thoracic spine wo/w con April 03, 2021 6:34pm completed PET NaF bone subq (nopr) April 22, 2021 9:49am completed MR cervical spine wo/w con April 25, 2021 11:00 pm completed XR knee RT 2V July 17, 2021 9:09am comp leted XR hip RT min 2V(w/wo pelvis)* July 17, 9:09am completed XR femur RT 2V* July 17, 2021 9:09am comp leted MR femur RT wo/w con July 23, 2021 1:56pm completed XR bone survey October 04, 2021 11:04am compl eted XR chest 2V* February 05, 2022 9:38am completed PET NaF bone subq (nopr) April 30, 2022 11:49am completed CT sinus wo con December 01, 2022 10:52am compl eted XR femur RT 2V* February 18, 2023 9:39am complete d XR hip RT min 2V(w/wo pelvis)* February 18, 2023 9:39am completed PET NaF bone subq (nopr) March 09, 2023 11:42am c ompleted MR abdomen wo/w con April 17, 2025 8:58am compl eted Aerobic Culture January 21, 2024 completed Gram Stain January 21, 2024 completed Relevant Diagnostic Tests and/or Laboratory Data Laboratory Results Test Collection Date/Time Result Date/Time Result Interpretation Reference Range Result Comment Performing Site Corrected White Blood Count September 19, 2025 10:00am September 19, 2025 10:49am 1.2 10*3/uL Below low normal 3.8-11.6 [facility] [id number] [address] [facility] 47657Barsy Blood CountJanuary 2020 9:55amJanuary 2020 10:16am2.9 10*3/uLBelow low normal4.5-11.0[facility] [address] [facility] 27255Eskteuibpfh WBC CountNovember 2024 10:00amNovember 2024 10:49am1.2 10*3/uLBelow low normal3.8-11.6F[facility] [id number] [address] [facility] 11155Qqq Blood CountNovember 2024 10:00amNovember 2024 10:49am3.25 10*6/uLBelow low normal3.60-5.00[facility] [id number] [address] [facility] 43245ZkxrfijznjXbgzzngk 2024 10:00amNove2024 10:49am11.0 g/dLBelow low eqbpsh10.8-15.4F[facility] [id number] [address] [facility] 20672UlwgjyqnbaBopwbpvs 2024 10:00amNove2024 10:49am31.8 %Below low yxdano86.0-46.4F[facility] [id number] [address] [facility] 79905Adlh Corpuscular VolumeNovember 2024 10:00ove2024 10:49am98.0 xB92-855BpepbealxMercy Hospital [facility] [id number] [address] [facility] 33637Oovr Corpuscular HemoglobinNovember 2024 10:002024 10:49am33.8 pg24.7-34.3F[facility] [id number] [address] [facility] 03333Fwki Corpuscular Hemoglobin ConcentNovember 2024 10:00am September 19, 2025 10:49am34.5 g/dL32.0-35.0[facility] [id number] [address] [facility] 83247Qdv Cell Distribution WidthNovember 2024 10:002024 10:49am20.1 %Above high vurguk66.9-15.3F[facility] [id number] [address] [facility] 86016Uqllhtin CountNovember 2024 10:002024 10:49am45 10*3/uLBelow low ucheqk251-295DphmqozykMercy Hospital Ctr [id number] [address] [facility] 94556Font Platelet VolumeNovember 2024 10:002024 10:49am8.6 fL6.3-10.7F[facility] [id number] [address] [facility] 91983Ddzckvbblbk (%) (Auto)September 12, 2025 9:252024 10:51am69.8 %.[facility] [id number] [address] [facility] 78466Xlafbybomac (%) (Auto)September 12, 2025 9:25ovemb2024 10:51am16.1 %.[facility] [id number] [address] [facility] 61413Vaunmgvkl (%) (Auto)September 12, 2025 9:25ove2024 10:51am11.5 %.[facility] [id number] [address] [facility] 56140Juzllbdqeme (%) (Auto)September 12, 2025 9:252024 10:51am1.7 %.[facility] [id number] [address] [facility] 26085Aynclztsl (%) (Auto)September 12, 2025 9:252024 10:51am0.9 %.[facility] [id number] [address] [facility] 53005Elbprxpqp Red Blood Cells % (auto)September 23, 2022 11:40am September 23, 2022 1:57pm0.6 %Above high normal0-0.5F[facility] [id number] [address] [facility] 17923Kzbmfplgg RBC Relative Count (auto)September 12, 2025 9:25am September 12, 2025 10:51am0.2 /100{WBC}0-0.5F[facility] [id number] [address] [facility] 87604Djqtlpyftcd # (Auto)September 12, 2025 9:252024 10:51am1.0 10*3/uLBelow low normal1.8-7.7F[facility] [id number] [address] [facility] 16804Rqewocazxue # (Auto)September 12, 2025 9:25amNovember 2024 10:51am0.2 10*3/uLBelow low normal1.00-4.8[facility] [id number] [address] [facility] 33024Puegguglu # (Auto)September 12, 2025 9:25amNovember 2024 10:51am0.2 10*3/uL0.0-0.8[facility] [id number] [address] [facility] 65568Bfwusgexyxv # (Auto)September 12, 2025 9:25amNovember 2024 10:51am0.0 10*3/uL0.0-0.45[facility] [id number] [address] [facility] 63019Mrkkacuja # (Auto)September 12, 2025 9:amNovember 2024 10:51am0.0 10*3/uL0.0-0.2F[facility] [id number] [address] [facility] 98799Ysrsdpzrp NeutrophilsNov2024 8:57amNovember 2024 10:00am75 %Above high ouyuph56-40PwousdsdcMercy Hospital Ctr [id number] [address] [facility] 88942Ikox Neutrophils %September 06, 2025 8:57amNovember 2024 10:00am7 %Above high normal0-5F[facility] [id number] [address] [facility] 22763Bjyobktharq %September 06, 2025 8:57amNovember 2024 10:00am11 %Below low befquh63-47WbybddcxuMercy Hospital [facility] [id number] [address] [facility] 43244Jechjfhf LymphocytesApril 2024 10:05amApril 2024 11:00am1 %0-12[facility] [id number] [address] [facility] 80511Ggbciektx %September 06, 2025 8:57amNovember 2024 10:00am8 %2-11[facility] [id number] [address] [facility] 62550Blbyygjlzwf %July 12, 2025 7:06amSeptember 2024 8:09am27 %Above high normal1-3F[facility] [id number] [address] [facility] 91626Iwkaskbwg %June 20, 2025 7:15amAugust 2024 9:47am1 % 0-2F[facility] [id number] [address] [facility] 72633Cdauaksbwridxv %April 17, 2025 8:46amJune 2024 10:08am1 %Above high normal0-0[facility] [id number] [address] [facility] 00732Bhqwsanmpz %November 05, 2022 9:06amJanuary 2022 10:11am1 %Above high normal0-0[facility] [id number] [address] [facility] 81573Shxnne CellsDecember 2021 10:15amDecember 2021 12:25pm1 %Above high normal0-0[facility] [id number] [address] [facility] 78356Jixsn Cell TypeApril 2022 9:20amApril 2022 1:01pm7 %Above high normal0-0PLASMACYTOID LYMPHMorrow County Hospital [facility] [id number] [address] [facility] 19986Zyu Blood Cell MorphologyNovember 2024 9:25amNovember 2024 10:51amN/AF[facility] [id number] [address] [place] [address] 62789EmuwsxzwwaaltFalfjhrr 2024 9:25amNovember 2024 10:51amSF[facility] [id number] [address] [place] [address] 85183JghhrtyvxxoyeMnroa 2024 9:23amMarch 2024 10:36am ModerateMercy Hospital Ctr [id number] [address] [facility] 04945CraacsbnxexzcePmyyiool 2024 9:25amNovember 2024 10:51amSF[facility]lands [facility] [id number] [address] [facility] 00911UhtoasfjfaufUlqbrvdx 2024 9:25amNovember 2024 10:51amModerateMercy Hospital Ctr [id number] [address] [facility] 52523HjfwdcbbmdtwCeugaa 2024 7:15amAugust 2024 9:47am SlightMercy Hospital [facility] [id number] [address] [facility] 17272EjzqigukslzwEdzuk 2022 10:20amMarch 2022 11:41am SlightMer[facility] [id number] [address] [facility] 24684WycmqgdananyBxquubes 2024 8:57amNovember 2024 10:00am SlightMer[facility] [id number] [address] [facility] 29256Cung Drop CellsNovember 2024 8:57amNovember 2024 10:00amSFirelands [facility] [id number] [address] [facility] 42523GyubjuesffHlxthplu 2024 9:25amNovember 2024 10:51am SlightMer[facility] [id number] [address] [facility] 65538FdxfrkmvyzvtUph 2024 7:53amMay 2024 11:[facility]amSB[facility] [id number] [address] [facility] 14919Ubrtqu-Iwomd BodiesAugust 2021 7:58amAugust 2021 8:38amSFirelands [facility] [id number] [address] [facility] 32854Zhqgrcdn CellOctober 2021 12:10pmOctober 2021 1:12pm ModerateMercy Hospital C[facility] [id number] [address] [facility] 15729Xksqy GranulationFebruary 2024 10:10amFebruary 2024 12:33pmModerateMercy Hospital Ctr [id number] [address] [facility] 78026Azxscoql EstimateNovember 2024 9:25amNovember 2024 10:51amDecreasedNormalMercy Hospital [facility]tr [id number] [address] [facility] 34517Yfblw PlateletsNovember 2024 8:57amNovember 2024 10:00am4 /100{WBC}[facility] [id number] [address] [facility] 30502Mbssptlj Morphology CommentNovember 2024 9:25amNovember 2024 10:51amN/AF[facility] [id number] [address] [facility] 92867Yghyp PlateletsNovember 2024 9:25amNoveer 2024 10:51amSlightMercy Hospital Ctr [id number] [address] [facility] 38913Zkzlfy for Pathologist ReviewMay 2024 7:53amMay 2024 11:36amOrdered path reviewMercy Hospital Ctr [id number] [address] [facility] 21505Vosabgmzfmi TimeAugust 2024 9:13amAugust 2024 10:19am 14.7 sAbove high normal9.0-12.9A hematocrit value greater than 55% may lead to inaccurate results in coagulation testing. Patientshaving hematocrit values >55% require a special collection tube for coagulation studies. Please contact the laboratory at [phone] for redraw instructions.[facility] [id number] [address] [facility] 52199Idssixiwg Time International RatioAugust 2024 9:13amAugust 2024 10:19am1.3INR Therapeutic Range A) Pre- and Peroperative OAT started two weeks before surgery. NOT HIP SURGERY: 1.5 - 2.5 HIP SURGERY: 2 - 3B) Primary and secondary prevention of venous THROMBOSIS: 2 - 3C) Active venous thrombosis, pulmonary embolismand prevention of recurrent venous thrombosis: 2 - 3D) Prevention of arterial thromboembolismincluding patients with mechanical heart valves: 3 - 4.5F[facility] [id number] [address] [facility] 36749Mcoej ColorApril 2022 9:50amApril 2022 10:20amYellow YellowMercy Hospital Ctr [id number] [address] [facility] 43112Kvufy ColorSeptember 2024 11:20amSeptember 2024 10:30pmColorlessYellowMercy Hospital Ctr [id number] [address] [facility] 48079Rnajv AppearanceApril 2022 9:50amApril 2022 10:20am ClearClearFMet[facility] [id number] [address] [facility] 44076Fwaeg AppearanceSeptember 2024 11:20amSeptember 2024 10:30pmClearClearMercy Hospital Ctr [id number] [address] [facility] 34031Tensf Specific GravityApril 2022 9:50amApril 2022 10:20am1.0051.001-1.030[facility] [id number] [address] [facility] 57073Iavre Specific GravitySeptember 2024 11:20amSeptember 2024 10:30pm1.0051.001-1.030[facility] [id number] [address] [facility] 57409Hszcw pHApril 2022 9:50amApril 2022 10:20am6.05.0-9.0 [facility] [id number] [address] [facility] 60902Gibuw pHSeptember 2024 11:20amSeptember 2024 10:30pm6.55.0-9.0[facility] [id number] [address] [facility] 94992Fhesc Leukocyte EsteraseApril 2022 9:50amApril 2022 10:20amNegativeNegativeMercy Hospital Ctr [id number] [address] [facility] 29565Rkwge Leukocyte EsteraseSeptember 2024 11:20amSeptember 2024 10:30pmNegativeNegativeMercy Hospital [facility]tr [id number] [address] [facility] 32278Lvkut NitriteApril 2022 9:50amApril 2022 10:20am NegativeNegativeMercy Hospital Ctr [id number] [address] [facility] 85343Nykds NitriteSeptember 2024 11:20amSeptember 2024 10:30pmNegativeNegativeMercy Hospital Ctr [id number] [address] [facility] 04358Wldgg ProteinApril 2022 9:50amApril 2022 10:20am Negative mg/dLNegativeMercy Hospital Ctr [id number] [address] [facility] 17229Pkanb ProteinSeptember 2024 11:20amSeptember 2024 10:30pmNegative mg/dLNegativeMercy Hospital Ctr [id number] [address] [facility] 50183Jqzad Glucose (UA)February 06, 2023 9:50amApril 2022 10:20am Normal mg/dLNormalMercy Hospital Ctr [id number] [address] [facility] 81337Zztil Glucose (UA)July 19, 2025 11:20amSeptember 2024 10:30pmNormal mg/dLNormalMercy Hospital Ctr [id number] [address] [facility] 16843Tcsjo KetonesApril 2022 9:50amApril 2022 10:20am NegativeNegativeMercy Hospital Ctr [id number] [address] [facility] 88779Wylqi KetonesSeptember 2024 11:20amSeptember 2024 10:30pmNegativeNegativeMercy Hospital Ctr [id number] [address] [facility] 77102Igaqs UrobilinogenApril 2022 9:50amApril 2022 10:20am Normal mg/dLNormalMercy Hospital Ctr [id number] [address] [facility] 33024Sdyko UrobilinogenSeptember 2024 11:20amSeptember 2024 10:30pmNormal mg/dLNormalMercy Hospital Ctr [id number] [address] [facility] 05363Tjlxk BilirubinApril 2022 9:50amApril 2022 10:20am NegativeNegativeMercy Hospital Ctr [id number] [address] [facility] 77047Cslku BilirubinSeptember 2024 11:20amSeptember 2024 10:30pmNegativeNegativeMercy Hospital [facility] [id number] [address] [facility] 58542Xwnrf Occult BloodApril 2022 9:50amApril 2022 10:20am NegativeNegativeMercy Hospital Ctr [id number] [address] [facility] 29852Virys Occult BloodSeptember 2024 11:20amSeptember 2024 10:30pmNegativeNegativeMercy Hospital Ctr [id number] [address] [facility] 45955Kuwyclz LevelNov2024 10:00amNove2024 11:10ip145 mg/dLAbove high -249AAZ recommended reference rangeRandom Glucose Reference Range is dependent on time and content of last meal. Glucose of more than 200 mg/dL in a nonstressed, ambulatory subject supports the diagnosisof Diabetes Mellitus.[facility] [id number] [address] [facility] 04861Ivmwr Urea NitrogenNov2024 10:002024 11:02am15 mg/dL7-25[facility] [id number] [address] [facility] 64741RukecprvovAkavvgxd 18th, 2025 10:00amNove2024 11:02am0.87 mg/dL0.60-1.20[facility] [id number] [address] [facility] 53621Lkianihqy GFR (Non- AmericanFebruary 2022 10:44am December 25, 2022 11:28am> 60 mL/MinMercy Hospital Ctr [id number] [address] [facility] 84410Qpnmgdpqu GFR (CKD-EPI)September 19, 2025 10:00amNove2024 11:02am> 60.0 mL/MinMercy Hospital Ctr [id number] [address] [facility] 42151Kduoblmnr GFR ()December 25, 2022 10:44am December 25, 2022 11:28am> 60 mL/MinGFR estimated reference range: According to KDOQI guidelines, <60 ml/min/1.73m2 is sufficient todiagnose a patient with chronic kidney disease.[facility] [id number] [address] [facility] 44566Bqrzmg LevelNovember 2024 10:00amNovember 2024 11:76uf317 mmol/LBelow low yanftq811-759MbypfobniMercy Hospital Ctr [id number] [address] [facility] 11752Zhuubbyzx LevelNov2024 10:00amNovember 2024 11:02am4.0 mmol/L3.5-5.1FMet[facility] [id number] [address] [facility] 72547Zireqoic LevelNov2024 10:00amNovember 2024 11:47zq987 mmol/V18-211VwktzlqvyMercy Hospital Ctr [id number] [address] [facility] 71837Zjgqbu Dioxide LevelNovember 2024 10:00amNovemb2024 11:02am24.0 mmol/L21.0-31.0[facility] [id number] [address] [facility] 38787Hqujq GapNov2024 10:00amNovemb2024 11:02am 9.0 mEq/L6.0-15.0[facility] [id number] [address] [facility] 29864Ejkwkzi LevelNovember 2024 10:00amNovember 2024 11:02am7.7 mg/dLBelow low normal8.6-10.3F[facility] [id number] [address] [facility] 51786Dlbxdyxip LevelOctober 2024 9:32amOctober 2024 10:04am1.7 mg/dLBelow low normal1.9-2.7F[facility]Health [facility] [id number] [address] [facility] 33416Kkxgw ProteinNovember 2024 10:00amNovember 2024 11:02am5.5 g/dLBelow low normal6.4-8.9[facility] [id number] [address] [facility] 54401ZbpxvsiVaywubpy 2024 10:00amNovember 2024 11:02am 3.3 g/dLBelow low normal3.5-5.7F[facility]Health [facility] [id number] [address] [facility] 49935VgnyvreuNvlvrsco 2024 10:00amNovember 2024 11:02am 2.2 g/dLMercy Hospital Ctr [id number] [address] [facility] 06153Ribslth/Globulin RatioNove2024 10:00amNovember 2024 11:02am1.5FMet[facility]Health [facility] [id number] [address] [facility] 35534Vdeie BilirubinNovember 2024 10:00amNovember 2024 11:02am1.3 mg/dLAbove high normal0.3-1.0Samples from patients who have taken Naproxen have shown spurious elevation in Total Bilirubin levels. A metabolite of Naproxen, O-desmethylnaproxen, has been shown to interfere with the Jenguyik-Grof method for measuring Total Bilirubin.[facility] [id number] [address] [facility] 72130Czlkiusfu Amino Transf (AST/SGOT)September 19, 2025 10:00am September 19, 2025 11:02am34 U/W49-09JtyczxreaMercy Hospital Ctr [id number] [address] [facility] 97591Pmvltev Aminotransferase (ALT/SGPT)September 19, 2025 10:00am September 19, 2025 11:02am31 U/L7-52[facility] [id number] [address] [facility] 56941Eioahjwx PhosphataseNovember 2024 10:00amNovember 2024 11:92us217 U/LAbove high tyfmnz28-368ErgyhqszwMercy Hospital Ctr [id number] [address] [facility] 88142Bgvudvy DehydrogenaseMay 2021 9:55amMay 2021 10:20wi361 U/U60-539OpmlyasnqMercy Hospital Ctr [address] [facility] 92820Gvfs LevelNovember 2024 10:00amNovember 2024 11:02am52 ug/gR26-062TngyeliltMercy Hospital Ctr [id number] [address] [facility] 39716Bmine Iron Binding CapacityNov2024 10:00amNovemb2024 11:83al080 ug/dLBelow low khygpl978-973BfrotzogvMercy Hospital Ctr [id number] [address] [facility] 60827Stvw SaturationNov2024 10:00amNovember 2024 11:02am21.3 %20-50[facility] [id number] [address] [facility] 40924EpbnovhfmtjBryyklyv 2024 10:00amNove2024 11:34jd492 mg/dLBelow low dapkha792-057NssntfnthMercy Hospital Ctr [id number] [address] [facility] 59654JtqvwregKdosytug 2024 10:00amNove2024 11:21am 160.4 ng/mL11.0-306.8[facility] [id number] [address] [facility] 67001Segebskkhng LevelMay 2020 12:08pmMay 2020 12:55pm 109 mg/dLBelow low lvtyru742-734Eijp less than 200 mg/dl low riskChol 201-239 mg/dl borderline riskChol 240 mg/dl and greater high riskMercy Hospital Ctr [address] [facility] 86756VFX CholesterolMay 2020 12:08pmMay 2020 12:55pm49 mg/pS22-23VWT CHOL ATP-III CLASSIFICATION Cardiovascular RiskHDL > or equal to 60 mg/dL LOWHDL < 40 mg/dL HIGHMercy Hospital Ctr [address] [facility] 78909Chqwpvwvymzsy LevelMay 2020 12:08pmMay 2020 12:55pm 51 mg/rN38-096AGSG ATP III CLASSIFICATIONTRIG less than 150 mg/dL NormalTRIG 150-199 mg/dL Borderline highTRIG 200-500 mg/dL High TRIG greater than 500 mg/dL Very highStandard traceable to the Center for Disease Conrtrol and Prevention (CDC) test method.[facility] [address] [facility] 17234MGR Cholesterol, CalculatedMa2020 12:08pmMa2020 12:55pm50 mg/dL0-100LDL ATP III CLASSIFICATIONLDL less than 100 mg/dL OptimalLDL 100-129 mg/dL Near or above optimalLDL 130-159 mg/dL Borderline highLDL 160-189 mg/dL HighLDL greater than 189 mg/dL Very highMercy Hospital Ctr [address] [facility] 34441KOPW CholesterolMay 2020 12:08pmMay 2020 12:55pm10 mg/dLMercy Hospital [facility]tr [address] [facility] 66601Klfyyemopwq/HDL RatioMay 2020 12:08pmMay 2020 12:55pm2.2<5.0[facility] [address] [facility] 99861Xhsprld B12 LevelOctober 2024 9:00amOctober 2024 10:74aj1657 pg/mLAbove high layhao940-415MomzggjkcMercy Hospital Ctr [id number] [address] [facility] 87704MhgvgfEfgqlbk 2024 9:00amOctober 2024 10:02am9.9 ng/mL>5.9Folate reference range: >5.9 ng/mlThe WHO technical consultation on folate and vitamin a40nydybenvlnln has determined that folate concentrations lessthan 4 ng/ml are considered deficient.[facility] [id number] [address] [facility] 05617Nbcnakd Stimulating Hormone 3rd GenFebruary 2024 9:45am December 29, 2024 10:50am5.13 u[iU]/mL0.45-5.33[facility] [id number] [address] [facility] 17695Uqykattv Creatinine Clearance (ChemNovember 2024 10:00am September 19, 2025 11:02am61.99[facility] [id number] [address] [facility] 39032Vonvvpybet M6yLykj 2024 9:04amJuly 2024 10:49am5.7 %Above high normal4.3-5.6Increased risk for diabetes: 5.7 - 6.4diabetes: >6.4glycemic control for adults with diabetes: <7.0[facility] [id number] [address] [facility] 03475Cynsqybyx Average GlucoseJuly 2024 9:04amJuly 2024 10:76fw076 mg/dLPremier Health Atrium Medical Center [id number] [address] [facility] 45900Mypbd Microalbumin mg/dlMay 2020 12:08pmMay 2020 12:55pm1.1 mg/dL0.0-1.8[facility] [address] [facility] 36170Tfyjg Random CreatinineMay 2020 12:08pmMay 2020 12:61ei034.0 mg/dLNo reference range establishedPremier Health Atrium Medical Center [address] [facility] 43420Wvvvd Microalbumin/Creatinine RatioMay 2020 12:08pmMay 2020 12:55pm6.0 mg/g0.0-30.030-300 mg/g indicates an increased risk for diabetic nephropathy. Greater than 300 mg/g is consistent with clinical nephropathy. (Am. J. Kidney Disease 1995, 25:107)[facility] [address] [facility] 47605Zzjgklpntxusu TestMarch 2023 11:30amMarch 2023 2:12pmSee commentSee report. Scanned copy available in EMR.[facility] [id number] [address] [place] [address] 04225Eqtfkzwsegldr AcidMay 2022 8:55amMay 2022 2:12bw567 nmol/L0-378This test was developed and its performance characteristicsdetermined by [employer] [facility]. It has not been cleared orapproved by the Food and Drug Administration.Performed at: [address] [id number] Director: Maxine Briones MD, Phone: [phone] Marker Alpha FetoproteinNovember 2024 8:57amNovember 2024 4:07am2.1 ng/mL0.0-9.2Rhardin [facility] hospitale [facility] Electrochemiluminescence Immunoassay(ECLIA)Values obtained with different assay methods or kits cannotbe used interchangeably. Results cannot be interpreted asabsolute evidence of the presence or absence of malignantdisease.This test is not interpretable in females.Performed at: [address] [id number] Director: Lang Knight PhD, Phone: [phone] ImmunofixationNov2024 8:57am September 08, 2025 12:36pmComment.No monoclonality detected.[facility] LevelOctober 2024 9:00amOctober 2024 9:80cb796 ug/aK05-024Nsdd test was developed and its performance characteristicsdetermined by [employer]. It has not been cleared orapproved by the Food and Drug Administration. Detection Limit = 5Performed at: [address] [id number] Director: Maxine Briones MD, Phone: [phone] GNovember 2024 8:57amNovember 2024 12:11sm285 mg/dLBelow low savcht956-1844UivUgur Immunoglobulin ANovember 2024 8:57amNovember 2024 12:36pm<5 mg/dLBelow low yidrhc31-096Wclfqw confirmed on concentration.[facility]Ex[facility] Immunoglobulin MNovember 2024 8:57amNovember 2024 12:36pm<5 mg/dLBelow low fottkk01-094Idjury confirmed on concentration.Performed at: [email or web address] [id number] Director: Lang Knight PhD, Phone: [phone] EOctober 2024 9:00am August 07, 2025 5:36am<2 [IU]/mLBelow low normal6-495Performed at: [facility] [employer] [id number] Director: Lang Knight PhD, Phone: [phone] at: [facility] [id number] Director: Maxine Briones MD, Phone: [phone] 2024 9:00amOctober 2024 2:36am29.4 mg/dL19.0-39.0Performed at: [facility] [employer] [id number] Director: Lang Knight PhD, Phone: [phone] Summify 2018 4:14pmFebruary 2018 10:01am1.9 mg/L0.6-2.4Siemens Immulite 2000 Immunochemiluminometric assay (ICMA)Values obtained with different assay methods or kits cannotbe used interchangeably. Results cannot be interpreted asabsolute evidence of the p resence or absence of malignantdisease.Performed at: [facility] [id number] Director: Maxine Briones MD, Phone: [phone] Vitamin D TotalJanuary 2017 9:55amJanuary 2017 8:56am22 ng/mLBelow low normal.Reference Range:All Ages: Target levels 30 - 100[facility] ,25 Dihydroxy Vitamin D2 November 16, 2017 9:55amJanuary 2017 8:56am12 ng/mL.[facility] 1,25 Dihydroxy Vitamin N9Wpkfwfi2017 9:55amJanuary 2017 8:56am10 ng/mL.Performed at: [facility] [address] [place] [id number] Director: Dwayne Hobbs MD, Phone: [phone] (Cardiovascular)March 11, 2023 8:55amMay 2022 4:07am7.9 umol/L0.0-17.2Performed at: [facility] [id number] Director: Lang Knight PhD, Phone: [phone] [facility] AntigenMar 2023 11:30amMarch 2023 2:08pmNegativeNegativePerformed at: [facility] Lab[address] [id number] Director: Maxine Briones MD, Phone: [phone] [facility] Total ProteinNovember 2024 8:57amNovember 2024 3:08pm5.1 g/dLBelow low normal6.0-8.5[facility] (Send Out)September 06, 2025 8:57amNovember 2024 3:08pm3.1 g/dL2.9-4.4[facility] 2024 8:57amNovember 2024 3:08pm 0.3 g/dL0.0-0.4[facility] 2024 8:57am September 07, 2025 3:08pm0.5 g/dL0.4-1.0[facility] Globulins September 06, 2025 8:57amNovember 2024 3:08pm0.8 g/dL0.7-1.3[facility] GlobulinsSeptember 06, 2025 8:57amNovember 2024 3:08pm 0.4 g/dL0.4-1.8[facility] Electrophoresis M-SpikeSeptember 06, 2025 8:57amNovemb2024 3:08pmNot observed g/dLNot ObservedLab[facility] (PEP)September 06, 2025 8:57amNovemb2024 3:08pm2.0 g/dLBelow low normal2.2-3.9[facility] /Globulin (PEP)September 06, 2025 8:57amNovemb2024 3:08pm1.60.7-1.7[facility] Electrophoresis NoteSeptember 06, 2025 8:57amNovemb2024 3:08pmComment. Protein electrophoresis scan will follow via computer,mail, or medical staff services coordinator delivery.Performed at: [facility] [address] [id number] Director: Lang Knight PhD, Phone: [phone] [place] Light Chains, QuantSeptember 06, 2025 8:57amNovemb2024 4:09pm0.7 mg/LBelow low normal3.3-19.4[facility] Lambda Light Chains, QuantSeptember 06, 2025 8:57amNovemb2024 4:09pm35.0 mg/L Above high normal5.7-26.3[facility] [place]/Lambda Light Chain RatioN2024 8:57amNovemb2024 4:09pm0.02Below low normal 0.26-1.65Performed at: [facility] [address] [id number] Director: Lang Knight PhD, Phone: [phone] IgGJuly 2017 12:40pmJuly 2017 7:72zm6297 mg/jK622-5705KeaQqsx IgAJuly 2017 12:40pmJuly 2017 7:91jn141 mg/gX24-607HcuInae IgMJuly 2017 12:40pmJuly 2017 7:20am75 mg/mL08-959Ffyyohocn at: [place] [address] [place], [place] [id number] Director: Lang Knight PhD, Phone: [phone] Histoplasma Galactomannan Antigen January 21, 2024 11:50amApril 2023 3:08pmNegative<0.5 ng/mLThis test was developed and its performance characteristicsdetermined by [employer]. It has not been cleared orapproved by the Food and Drug Administration.Performed at: [address] [place] [address] [facility] [place] [address], [place] [id number] Director: Mojgan Sommers MD, Phone: [phone] Immunofixation July 17, 2020 10:13amSept2019 1:36pmSee comment.No monoclonality detected.Performed at: [facility] [employer] [address]Br[id number] [place], [place] [id number] Director: Lang Knight PhD, Phone: [phone] [facility] Random Total ProteinMay 2021 12:00pmMay 2021 11:09am<4.0 mg/dLNot Estab.Verified by repeat analysisCape Cod and [facility] Random AlbuminMay 2021 12:00pmMay 2021 11:09am 27.0 %.[facility] Hylrc-8-Zfbkaljud (%)March 26, 2022 12:00pmMa2021 11:09am13.6 %.[facility] Random Cikuw-3-Wgwtvajnx % March 26, 2022 12:00pmMa2021 11:09am23.5 %.[facility] Random Beta-Globulin %March 26, 2022 12:00pmMa2021 11:09am21.9 %.[facility] Random Gamma Globulin %March 26, 2022 12:00pmMa2021 11:09am14.0 %.[facility] Random PEP M-Jaspal %March 26, 2022 12:00pmMarch 28, 2022 11:09amNot observed %Not ObservedLabExcelsior Springs Medical Center Urine Random Prot Electrophor NoteMa2021 12:00pmMarch 28, 2022 11:09am See comment.Protein electrophoresis scan will follow via computer,mail, or medical staff services coordinator delivery.Performed at: [address] [id number] Director: Lang Knight PhD, Phone: [phone] GlucoseJuly 2020 1:24pmJuly 2020 11:28tv918 mg/dLRandom Glucose Reference Range is dependent on time and content of last meal. Glucose of more than 200 mg/dL in a nonstressed, ambulatory subject supports the diagnosis of Diabetes Mellitus.Point of Care testingBedside Glucose CommentJuly 2020 12:57pmJuly 2020 11:14pmSee commentGlu2: Will Repeat TestPoint of Care testingBedside Glucose #2 CommentJuly 2020 12:57pmJuly 2020 11:14pmWill notify dr/Xavieroint of Care testingBedside Glucose #3 CommentJuly 2020 12:57pmJuly 2020 11:14pmCleaned meter Point of Care testing Microbiology Results Procedure Source Result Collection Date/Time Result Date/Time Result Comment Performing Site Aerobic Culture Other (See Comment) January 21, 2024 12:50pmMarch 2023 12:[facility]pm[facility] [id number] [address] [place] [id number] StainOther (See Comment)January 21, 2024 12:50pmMarch 2023 4:11pm[facility] [id number] [address] [place] [address] Diagnostic Imaging Reports Author Talha Dexter [facility] HospitalAuthoredJanuary 2017 3:41pmReportDictated Date/TimeDictated ByStatusRadiology ReportJanuary 2017 3:41pmYoung Armando Dexter , MDcompleteToledo Hospital [place] [address] [place] [address] Nuclear Medicine Report Signed Patient: Mojgan Snider MR#: [id number] : 1955 Acct:[id number] Age/Sex: 62 / F ADM Date: 8 Loc: XT Room: Type: [facility] Attending Dr: Fabiola Marinelli MD Ordering Physician: [...] UNREMARKABLE FDG PET IMAGING CPT Code 1: 85181 ICD-10 : C90.0 Dictation Location: [facility] Transcribed By: GIOVANNA 11/17/17 1008 Dictated By: Talha Dexter MD 11/16/17 1541 Signed By: <Electronically signed by MD Talha Dexter in OV> 11/17/17 1008 Author Tracey Bah [facility] HospitalAuthoredJuly 2017 10:21amReportDictated Date/TimeDictated ByStatusRadiology ReportJuly 2017 10:21amObie ArizmendiProMedica [place] [address] XRay Report Signed Patient: Mojgan Snider MR#: [id number] : 1955 Acct:[id number] Age/Sex: 62 / F ADM Date: 8 Loc: Room: Type: [facility] Attending Dr: Fabiola Marinelli MD Ordering Provider: [...] LYTIC OR BLASTIC BONE LESIONS. Dictation Location: [id number] Transcribed By: GIOVANNA 05/31/18 1029 Dictated By: Tracey Bah MD 05/31/18 1021 Signed By: <Electronically signed by Tracey Bah MD in OV> 05/31/18 1029 Author Jorge Duffy [facility] 2018 3:35pmReportDictated Date/TimeDictated ByStatusRadiology ReportAumesilla valley hospitalt 2018 3:35pmJayy KatzToledo Hospital [place] [address] [place] [address] XRay Report Signed Patient: Mojgan Snider MR#: [id number] : 1955 Acct:[id number] Age/Sex: 63 / F ADM Date: 9 Loc: XT Room: Type: [facility] Attending Dr: Fabiola Marinelli MD Ordering Provider: [...] 3:41 PM Dictation Location: [facility] Transcribed By: [facility] 07/01/19 1541 Dictated By: Jorge Duffy DO 07/01/19 1535 Signed By: <Electronically signed by Jorge Duffy DO in OV> 07/01/19 1541 Author Justus Frazier [facility] 2019 3:11pmReportDictated Date/TimeDictated ByStatusRadiology ReportGood Samaritan Hospital 2019 3:11pmJustus Frazier II [facility] [place] [address] [place] [address] Nuclear Medicine Report Signed Patient: Mojgan Snider MR#: [id number] : 1955 Acct:[id number] Age/Sex: 64 / F ADM Date: 0 Loc: XT Room: Type: [facility] Attending Dr: Fabiola Marinelli [...] Justus Frazier M.D.01/02/2020 3:31 PM Dictation Location: [facility] Transcribed By: [facility] 01/02/20 1531 Dictated By: Justus Frazier II, MD 01/02/20 1511 Signed By: <Electronically signed by Justus Frazier II, MD in OV> 01/02/20 1531 Author Jorge Duffy [facility] HospitalAuthoredMar 2019 12:02pmReportDictated Date/TimeDictated ByStatusRadiology ReportMar 2019 12:02pmJayy KatzToledo Hospital [place] [address] [place] [address] XRay Report Signed Patient: Mojgan Snider MR#: [id number] : 1955 Acct:[id number] Age/Sex: 64 / F ADM Date: 0 Loc: XT Room: Type: [facility] Attending Dr: Fabiola Marinelli MD Ordering Provider: [...] in OV> 01/31/20 1210 Author Jorge Duffy [facility] HospitalAutUniversity [facility]als [facility] 2019 12:10pmReportDictated Date/TimeDictated ByStatusRadiology ReportMarch 2019 12:10pmJorge Duffy [facility] Main [place] [id number] XRay Report Signed Patient: Mojgan Snider MR#: [id number] : 1955 Acct:[id number] Age/Sex: 64 / F ADM Date: 0 Loc: Room: Type: [facility] Attending Dr: Fabiola Marinelli MD Ordering Provider: [...] Jorge Duffy M.D.01/31/2020 12:13 PM Dictation Location: [facility] Transcribed By: [facility] 01/31/20 1213 Dictated By: Jorge Duffy DO 01/31/20 1210 Signed By: <Electronically signed by Jorge Duffy DO in OV> 01/31/20 1213 Author Jorge Duffy [facility] HospitalAuthoredJuly 2019 10:25amReportDictated Date/TimeDictated ByStatusRadiology ReportJuly 2019 10:25amYandy KatzProMedica Bay Park Hospital Main [address] [address] MRI Report Signed Patient: Mojgan Snider MR#: [id number] : 1955 Acct:[id number] Age/Sex: 64 / F ADM Date: 0 Loc: XT Room: Type: [facility] Attending Dr: Fabiola Marinelli MD Ordering Provider: Fabiola Marinelli MD Date of Service: 05/31/20 MR/MR cervical spine wo con: myeloma with neck pain, r/o lytic lesion/unstable ([id number]) XR/XR pre/post mri xray: C90.00 Copies to: [...] Jorge Duffy M.D.05/31/2020 10:39 AM Dictation Location: [facility] Transcribed By: [facility] 05/31/20 1039 Dictated By: Jorge Duffy DO 05/31/20 1025 Signed By: <Electronically signed by Jorge Duffy DO in OV> 05/31/20 1039 Author Talha Dexter [facility] HospitalAuthoredJanuary 2020 11:13amReport Dictated Date/TimeDictated ByStatusRadiology ReportJanuary 2020 11:13am Talha Dexter [facility] [place] [address] [place] [address] XRay Report Signed Patient: Mojgan Snider MR#: [id number] : 1955 Acct:[id number] Age/Sex: 65 / F ADM Date: 1 Loc: Room: Type: [facility] Attending Dr: Fabiola Marinelli MD Ordering Provider: [...] Talha Dexter M.D.11/19/2020 11:19 AM Dictation Location: [id number] Transcribed By: [facility] 11/19/20 1119 Dictated By: Talha Dexter MD 11/19/20 1113 Signed By: <Electronically signed by MD Talha Dexter in OV> 11/19/20 1119 Author Mansoor Vaca [facility] HospitalAuthoredGood [facility]aritan Hospital 2020 3:33pmReportDictated Date/TimeDictated ByStatusRadiology ReportMarch 2020 3:33pmCarrol Bunch Jr [facility] [place] [address] [place] [address] Nuclear Medicine Report Signed Patient: Mojgan Snider MR#: [id number] : 1955 Acct:[id number] Age/Sex: 65 / F ADM Date: Loc: Room: Type: [facility] Attending Dr: Fabiola Marinelli MD Ordering Provider: Fabiola Marinelli MD Date of Service: 01/14/21 PET/PET f-18 bone subq (nopr): restaging multiple myeloma Copies to: MD Vitaliy Downey MD Patterson, Richard D Jr, MD~ [...] foot. Note is otherwise made of an Rngpfy-a-Vzcw on the right. Atherosclerotic disease is seen. The gallbladder is surgically absent. The uterus is also surgically absent. There is a suprapubic ventral hernia containing fat without acute complication. PET/PET f-18 bone subq (nopr) IMPRESSION: Relatively stable findings. Impression dictated by: Mansoor Vaca Jr., M.D.01/14/2021 7:09 PM Dictation Location: [place] [address] Transcribed By: GIOVANNA 01/14/21 1909 Dictated By: Mansoor Vaca Jr, MD 01/14/21 1533 Signed By: <Electronically signed by Mansoor Vaca Jr, MD in OV> 01/14/21 1909 Author Mansoor Vaca [facility] HospitalAuthoredJun 2020 9:18amReportDictated Date/TimeDictated ByStatusRadiology ReportJune 2020 9:18amRichCarrol Chan Jr [facility] [place] [address] [place] [address] MRI Report Signed Patient: Mojgan Snider MR#: [id number] : 1955 Acct:[id number] Age/Sex: 65 / F ADM Date: Loc: Room: Type: [facility] Attending Dr: Fabiola Marinelli [...] Vaca Jr., M.D.04/04/2021 9:31 AM Dictation Location: [place] [address] Transcribed By: [facility] 04/04/21 0931 Dictated By: Mansoor Vaca Jr, MD 04/04/21 0918 Signed By: <Electronically signed by Mansoor Vaca Jr, MD in OV> 04/04/21 0931 Author Jorge Duffy [facility] HospitalAuthoredJune 2020 2:18pmReportDictated Date/TimeDictated ByStatusRadiology ReportJune 2020 2:18pmJayy KatzT[place] [address] Nuclear Medicine Report Signed Patient: Mojgan Snider MR#: [id number] : 1955 Acct:[id number] Age/Sex: 65 / F ADM Date: 1 Loc: XT Room: Type: [facility] Attending Dr: Fabiola Marinelli MD Ordering Provider: [...] Jorge Duffy M.D.04/22/2021 2:23 PM Dictation Location: [place] [address] Transcribed By: [facility] 04/22/21 1423 Dictated By: Jorge Duffy DO 04/22/21 1418 Signed By: <Electronically signed by Jorge Duffy DO in OV> 04/22/21 1423 Author Mansoor Vaca [facility] HospitalAuthoredAtrium Health [facility] Baptist 2020 9:16amReportDictated Date/TimeDictated ByStatusRadiology ReportJune 2020 9:16amCarrol Bunch Jr [facility] [place] [address] [place], [place] [address] MRI Report Signed Patient: Mojgan Snider MR#: [id number] : 1955 Acct:[id number] Age/Sex: 65 / F ADM Date: 1 Loc: XT Room: Type: [facility] Attending Dr: Fabiola Marinelli MD Ordering Provider: [...] Vaca Jr., M.D.04/27/2021 9:23 AM Dictation Location: [place] [address] Transcribed By: [facility] 04/27/21922 Dictated By: Mansoor Vaca Jr, MD 04/27/21915 Signed By: <Electronically signed by Mansoor Vaca Jr, MD in OV> 04/27/21922 Author Jorge Duffy [facility] HospitalAuthoredSeptember 2020 1:24pmReport Dictated Date/TimeDictated ByStatusRadiology ReportSeptember 2020 1:24pm Jayy KatzToledo Hospital [place] [address] [place], [place] [address] XRay Report Signed Patient: Mojgan Snider MR#: [id number] : 1955 Acct:[id number] Age/Sex: 65 / F ADM Date: 1 Loc: XT Room: Type: [facility] Attending Dr: Fabiola Marinelli MD Ordering Provider: Fabiola Marinelli MD Date of Service: 07/17/21 XR/XR knee RT 2V: multiple myeloma patient severe hip pain ([id number]) XR/XR hip RT min 2V(w/wo pelvis)*: multiple myeloma patient severe hip pain ([id number]) XR/XR femur RT 2V*: patient with Myeloma [...] Jorge Duffy M.D.07/17/2021 1:29 PM Dictation Location: [place] [address] Transcribed By: [facility] 07/17/21 1329 Dictated By: Jorge Duffy DO 07/17/21 1324 Signed By: <Electronically signed by Jorge Duffy DO in OV> 07/17/21 1329 Author Mansoor Vaca [facility] HospitalAutredSeptember 2020 4:52pmReport Dictated Date/TimeDictated ByStatusRadiology ReportSeptember 2020 4:52pm Carrol Bunch Jr [facility] [place] [address] [place] [address] MRI Report Signed Patient: Mojgan Snider MR#: [id number] : 1955 Acct:[id number] Age/Sex: 65 / F ADM Date: 1 Loc: Room: Type: [facility] Attending Dr: Fabiola Marinelli [...] Vaca Jr., M.D.07/23/2021 7:26 PM Dictation Location: [place] [address] Transcribed By: [facility] 07/23/211925 Dictated By: Mansoor Vaca Jr, MD 07/23/21 1652 Signed By: <Electronically signed by Mansoor Vaca Jr, MD in OV> 07/23/21 192 Author Tracey Bah [facility] HospitalAuthoredDehonorhealth deer valley medical center 2020 2:30pmReportDictated Date/TimeDictated ByStatusRadiology ReportDehonorhealth deer valley medical center 2020 2:30pmTracey Bah [facility] [place] [address] [place] [address] XRay Report Signed Patient: Mojgan Snider MR#: [id number] : 1955 Acct:[id number] Age/Sex: 66 / F ADM Date: 1 Loc: [facility]: Fabiola Marinelli MD [...] or abdominal findings. Patient has a right-sided Xlehbf-u-Vujv catheter. XR/XR bone survey IMPRESSION: NO OSTEOLYTIC LESIONS SUGGESTIVE OF MULTIPLE MYELOMA. Impression dictated by: Tracey Bah M.D.10/04/2021 2:43 PM Dictation Location: [place] [address] Transcribed By: [facility] 10/04/21 1443 Dictated By: Tracey Bah MD 10/04/21 1430 Signed By: <Electronically signed by MD Tracey Bah in OV> 10/04/21 1443 Author Justus Frazier [facility] HospitalAuthoredApril 2021 12:24pmReportDictated Date/TimeDictated ByStatusRadiology ReportApril 2021 12:24pmJustus Frazier II [facility] [place] [address] [place] [address] XRay Report Signed Patient: Mojgan Snider MR#: [id number] : 1955 Acct:[id number] Age/Sex: 66 / F ADM Date: 2 Loc: Room: Type: [facility] Attending Dr: Fabiola Marinelli MD Ordering Provider: Fabiola Marinelli MD Date of Service: 02/05/22 XR/XR chest 2V*: increased SOB and congestion, fatigued Copies to: Fabiola Marinelli MD~ XR chest 2V* 02/05/2022 10:38 AM SIGNS AND SYMPTOMS: increased SOB and congestion, fatigued PROTOCOL: Frontal and lateral radiograph of the chest COMPARISON: 11/07/2021 FINDINGS: The trachea is midline. There is a right-sided Oaiscf-o-Loyd which is unchanged. Atherosclerotic changes are noted [...] Justus Frazier M.D.02/05/2022 12:25 PM Dictation Location: [place] [address] Transcribed By: [facility] 02/05/22 1225 Dictated By: Justus Frazier II, MD 02/05/22 1224 Signed By: <Electronically signed by Justus Frazier II, MD in OV> 02/05/22 1225 Author Tracey Bah [facility] HospitalAuthoredJune 2021 4:32pmReportDictated Date/TimeDictated ByStatusRadiology ReportJune 2021 4:32pmTracey Bah MDcompletedFKINDRED HOSPITAL DAYTON Main [place] [address] [place] [address] Nuclear Medicine Report Signed Patient: Mojgan Snider MR#: [id number] : 1955 Acct:[id number] Age/Sex: 66 / F ADM Date: 2 Loc: Room: Type: [facility] Attending Dr: Fabiola Marinelli MD Copies [...] Tracey Bah M.D.04/30/2022 4:51 PM Dictation Location: [place] [address] Transcribed By: GIOVANNA 04/30/221650 Dictated By: Tracey Bah MD 04/30/221631 Signed By: <Electronically signed by MD Tracey Bah in OV> 04/30/221650 Author Justus Frazier [facility] HospitalAuthoredJanuary 2022 2:23pmReportDictated Date/TimeDictated ByStatusRadiology ReportJanuary 2022 2:23pmJustus Frazier II [facility] [place] [address] [place] [address] CT Scan Report Signed Patient: Mojgan Snider MR#: [id number] : 1955 Acct:[id number] Age/Sex: 67 / F ADM Date: 3 Loc: XT Room: Type: [facility] Attending Dr: Fabiola aMrinelli MD Copies to: Fabiola Marinelli MD~ Ordering [...] Justus Frazier M.D.12/01/2022 2:32 PM Dictation Location: [place] [address] Transcribed By: [facility] 12/01/22 1432 Dictated By: Justus Frazier II, MD 12/01/22 1423 Signed By: <Electronically signed by Justus Frazier II, MD in OV> 12/01/22 143 Author Carroll Sparrow [facility] HospitalAuthoredApril 2022 4:29pmReportDictated Date/TimeDictated ByStatusRadiology ReportApril 2022 4:29pmJosesavage Sparrow Jr DOcompMercy Health [facility] Main [place] [address] [place] [address] XRay Report Signed Patient: Mojgan Snider MR#: [id number] : 1955 Acct:[id number] Age/Sex: 67 / F ADM Date: 3 Loc: Room: Type: [facility] Attending Dr: Fabiola Marinelli MD Copies to: Fabiola Marinelli MD~ Ordering Provider: Fabiola Marinelli MD Date of Service: 02/18/23 XR/XR femur RT 2V*: right hip pain and leg pain ([id number]) XR/XR hip RT min 2V(w/wo pelvis)*: right [...] 4:33 PM Dictation Location: [facility] Transcribed By: [facility] 02/18/23 1633 Dictated By: Carroll Sparrow Jr, DO 02/18/23 1629 Signed By: <Electronically signed by Carroll Sparrow Jr, DO in OV> 02/18/23 1633 Author Justus Frazier [facility] HospitalAuthoredMay 2022 3:16pmReportDictated Date/TimeDictated ByStatusRadiology ReportMay 2022 3:16pmJustus Frazier II [facility] [place] [address] Nuclear Medicine Report Signed Patient: Mjogan Snider MR#: [id number] : 1955 Acct:[id number] Age/Sex: 67 / F ADM Date: 3 Loc: Room: Type: [facility] Attending Dr: Fabiola Marinelli MD Copies [...] Justus Frazier M.D.03/09/2023 3:22 PM Dictation Location: [place] [address] Transcribed By: [facility] 03/09/23 1522 Dictated By: Justus Frazier II, MD 03/09/23 1516 Signed By: <Electronically signed by Justus Frazier II, MD in OV> 03/09/23 1522 Author Tracey Bah [facility] HospitalAuthoredGood Samaritan Hospital 2023 2:46pmReportDictated Date/TimeDictated ByStatusRadiology ReportGood Samaritan Hospital 2023 2:46pmObie ArizmendiProMedica Bay Park Hospital Main [place] [address] [place] [address] XRay Report Signed Patient: Mojgan Snider MR#: [id number] : 1955 Acct:[id number] Age/Sex: 68 / F ADM Date: 4 Loc: XT Room: Type: [facility] Attending Dr: Fabiola Marinelli MD Copies [...] Tracey Bah M.D.01/21/2024 2:47 PM Dictation Location: [facility] Transcribed By: [facility] 01/21/24 1447 Dictated By: Tracey Bah MD 01/21/241445 Signed By: <Electronically signed by MD Tracey Bah in OV> 01/21/241446 Author Carroll Sparrow [facility] HospitalAuthoredMar 2023 6:07pmReportDictated Date/TimeDictated ByStatusRadiology ReportGood Samaritan Hospital 2023 6:07pmJosesavage Sparrow Jr DOcompMercy Health [facility] Main [place] [address] [place] [address] CT Scan Report Signed Patient: Mojgan Snider MR#: [id number] : 1955 Acct:[id number] Age/Sex: 68 / F ADM Date: 4 Loc: Room: Type: [facility] Attending Dr: Fabiola Marinelli MD Copies [...] PANSINUSITIS. NO AGGRESSIVE FEATURES. Impression dictated by: Neri Pickard Jr.OErna01/25/2024 6:14 PM Dictation Location: [facility] Transcribed By: [facility] 01/25/241813 Dictated By: Carroll Sparrow Jr, DO 01/25/241806 Signed By: <Electronically signed by Carroll Sparrow Jr, DO in OV> 01/25/241813 Author Carroll Sparrow [facility] HospitalAuthoredMar 2023 6:23pmReportDictated Date/TimeDictated ByStatusRadiology ReportMarch 2023 6:23pmJosesavage Sparrow Jr DOcompMercy Health [facility] Main [place] [address] [place] [address] CT Scan Report Signed Patient: Mojgan Snider MR#: [id number] : 1955 Acct:[id number] Age/Sex: 68 / F ADM Date: 4 Loc: [facility]: [facility]: Fabiola Marinelli MD [...] liver with likely splenomegaly. Impression dictated by: Carrol Pickard Jr..OErna01/25/2024 6:24 PM Dictation Location: [facility]15 Transcribed By: [facility] 01/25/241823 Dictated By: Carroll Sparrow Jr, DO 01/25/241822 Signed By: <Electronically signed by Carroll Sparrow Jr, DO in OV> 01/25/241823 Author Jorge Duffy [facility] HospitalAuthoredSeptember 21, 2024 4:02pmReport Dictated Date/TimeDictated ByStatusRadiology ReportSeptember 21, 2024 4:02pm [facility] [place] [address] [place] [address] Nuclear Medicine Report Signed Patient: Mojgan Snider MR#: [id number] : 1955 Acct:[id number] Age/Sex: 69 / F ADM Date: 4 Loc: Room: Type: [facility] Attending Dr: Fabiola Marinelli MD Copies [...] 4:07 PM Dictation Location: RADIO-PC-16 Transcribed By: [facility] 09/21/241606 Dictated By: Jorge Duffy DO 09/21/241601 Signed By: <Electronically signed by Jorge Duffy DO in OV> 09/21/241606 Author Carroll Sparrow [facility] HospitalAuthoredJun 2024 11:39amReportDictated Date/TimeDictated ByStatusRadiology ReportJune 2024 11:39amJoseph Jr Kyara DOcompleteTol[facility] Hospital [facility] [place] [address] [place] [address] MRI Report Signed Patient: Mojgan Snider MR#: [id number] : 1955 Acct:[id number] Age/Sex: 69 / F ADM Date: 5 Loc: Room: Type: [facility] Attending Dr: Fabiola Marinelli MD Copies [...] SPLENOMEGALY.. Impression dictated by: Carroll Sparrow Jr., D.OErna 04/17/2025 11:55 AM Dictation Location: [place] [address] Transcribed By: [facility] 04/17/25 1155 Dictated By: Carroll Sparrow Jr, DO 04/17/25 1139 Signed By: <Electronically signed by Carroll Sparrow Jr, DO in OV> 04/17/25 1155 Author Carroll Sparrow [facility] HospitalAuthoredNovember 2024 10:03amReport Dictated Date/TimeDictated ByStatusRadiology ReportNov2024 10:03am Carroll Sparrow Jr DOcompleteTol[facility] Hospital [facility] [place] [address] [place] [address] MRI Report Signed Patient: Mojgan Snider MR#: [id number] : 1955 Acct:[id number] Age/Sex: 70 / F ADM Date: 5 Loc: XT Room: Type: [facility] Attending Dr: Fabiola Marinelli MD Copies to: Fabiola Marinelli MD~ Ordering Provider: Fabiola Marinelli MD Date of Service: 09/18/25 MR/MR abdomen wo/w con: follow up microwave ablation MRI OF THE ABDOMEN WITH AND WITHOUT CONTRAST: CLINICAL HISTORY: Abnormal MRI COMPARISON: MRI abdomen 04/17/2025. TECHNIQUE: Multisequence, multiplanar imaging of the abdomen was obtained before and after the use of IV contrast. FINDINGS: Liver appears cirrhotic in morphology without evidence of intrahepatic biliary ductal dilatation. Previously identified suspicious lesions involving segment 6 now appears to have been ablated without residual abnormal enhancement. Postablation changes are also seen involving segment 7 of the liver. No new areas of abnormal arterial enhancement with washout to suggest progression of disease. Hepatic and portal veins appear patent. Gallbladder has been removed. No CBD dilatation. Splenomegaly measuring 14 cm. Pancreas appears unremarkable. Adrenal glands appear unremarkable. No enhancing renal mass or hydronephrosis. Abdominal aorta appears normal in caliber. No bulky lymphadenopathy. Trace ascites. Duodenal diverticulum. No pleural effusion. MR/MR abdomen wo/w con IMPRESSION: POSTABLATION CHANGES ARE NOW SEEN INVOLVING SEGMENT 6 AND 7 OF THE LIVER . NO MRI EVIDENCE OF RESIDUAL TUMOR OR PROGRESSION OF DISEASE. CIRRHOTIC LIVER WITH SPLENOMEGALY.. TRACE ASCITES. Impression dictated by: Carroll Sparrow Jr., D.O. 09/18/2025 10:08 AM Dictation Location: [place] [address] Transcribed By: [facility] 09/18/25 1008 Dictated By: Carroll Sparrow Jr, DO 09/18/25 1003 Signed By: <Electronically signed by Carroll Sparrow Jr, DO in OV> 09/18/25 1008 Vital Signs Vital Reading Result Reference Range Collection Date/Time Height 62 [in_i] July 19, 2025 11:37lsJbpexx60.27 kgSeptember 2024 11:13amBody Pnlqvqjrtdi69.1 [degF]97.6-99.0September 2024 11:13amHeart Rate77 /min 60-100Sept2024 11:13amRespiratory rate18 /dgb48-43Laiuxjrus 17th, 2025 11:13amOxygen saturation by Pulse womhvyrs52 %95-100Sept2024 11:13amBP Aigrvmrf951 mm[Hg]100-140September 2024 11:13amBP Csxquxnrd36 mm[Hg]60-100September 2024 11:39jiTnosai27 [in_i]July 27, 2025 9:69uiZgzajf28.18 kgSept2024 9:26amBody Ekbtzbemukl14.7 [degF] 97.6-99.0Sept2024 9:26amHeart Rate77 /sqn97-784Cufdvjdvb 25th, 2025 9:26amRespiratory rate16 /oas78-87Qhribzucn 25th, 2025 9:26amOxygen saturation by Pulse zxdouzph84 %95-100Sept2024 9:26amBP Sbfpgfit30 mm[Hg] 100-140Sept2024 9:26amBP Tzsljxrza86 mm[Hg]60-100Sept2024 9:26amBMI (Body Mass Index)34.7 kg/z1Ggmoqrifr2024 9:65ohKvxbua18 [in_i]September 19, 2025 10:30mzZuisoo22.46 kgFormerly [facility]2024 10:13amBody Wclvlhpwlkz47.4 [degF]97.6-99.0September 12, 2025 9:38amHeart Rate74 /aql06-163 September 12, 2025 9:38amRespiratory rate18 /evy24-72NtfzjqyhSeptember 12, 2025 9:38am Oxygen saturation by Pulse qhysqimi15 %95-100September 12, 2025 9:38amBP Wmhaktic145 mm[Hg]100-140September 12, 2025 9:38amBP Vnbggqhxv83 mm[Hg]60-100 September 12, 2025 9:38amInhaled oxygen flow rate2 L[facility] 2020 7:45am Yukbdw28 [in_i]September 19, 2025 10:03grPwtvmd27.46 kgFormerly [facility]2024 10:13amBody Lkdgwbeinax74.6 [degF]97.6-99.0September 19, 2025 10:13amHeart Rate 86 /llc37-509UkefsptrSeptember 19, 2025 10:13amRespiratory rate16 /hwa12-89EswraiubSeptember 19, 2025 10:13amOxygen saturation by Pulse tekauqdj56 %95-100September 19, 2025 10:13amBP Wevomqcy922 mm[Hg]100-140September 19, 2025 10:13amBP Diastolic 73 mm[Hg]60-100September 19, 2025 10:13amBMI (Body Mass Index)33.6 kg/m2 September 19, 2025 10:13am Advance Directives Advance Directive Response Recorded Date/ Time Advance Directives No July 1:24pm Insurance Providers Guarantor Mojgan Weaver Snider Address [address] [place] [address]Otnkwsa Info.Home Phone: Coverage Status Update:2025 Payer Group Member ID Coverage Type Subscriber Relationship to Subscriber Effective Date Expiration Date Medicaid [id number] S Snider Id: [id number] [address] [place] [address] Home Phone: Email: NONESelfMedicare [id number] S Snider Id: [id number] [address] [place] [address] Home Phone: Email: NONESelfVytaliECU [facility] [id number] S Snider Id: [id number] [address] [place] [address] Home Phone: Email: NONESelf Encounters Encounter Location(s) Arrival/Admit Date Discharge/Departure Date Discharge/Departure Disposition Provider(s) Departed [facility] July 19, 2025 9:55am July 19, 2025 9:56am Discharged to home care or self care (routine discharge) Ching Mcclendon APRN Departed Emergency -Emergency Room July 19, 2025 11:40am July 19, 2025 4:13pm Left against medical advice or discontinued care Departed Physician/Provider Office Visit-[facility] 2024 10:25amSuc [facility] 2024 11:18amDischarged to home care or self care (routine discharge)Ching Rubalcava MDDeparted Physician/[facility] 2024 2:44pm Discharged to home care or self care (routine discharge)Ching Mcclendon APRNDeparted [facility] 2024 7:42am August 16, 2025 7:43amDischarged to home care or self care (routine discharge)Ching Mcclendon APRNDeparted [facility] 7:48am[facility] 2024 7:49amDischarged to home care or self care (routine discharge)Ching Mcclendon APRNRegistered [facility] 9:56amAmy Yves , M MDDeparted Physician/Provider Office Visit-[facility] 2024 10:09amNovember 2024 11:29amDischarged to home care or self care (routine discharge)MARI Torres Recent Diagnosis Onset Date Admit Date Cancer associated pain Unknown July 19, 2025 9:55am Hepatocellular carcinoma Unknown er 2024 9:55am Nausea Unknown July 19, 2025 9:55am Hemorrhoids, complicated Unknown er 2024 10:25am Hepatocellular carcinoma Unknown er 2024 10:25am Iron deficiency anemia Unknown July 27, 2025 10:25am Bone marrow hypocellularity Unknown Jul emb2024 10:25am Cancer-related pain Unknown July 272024 10:25am [...] 025 7:42am Nausea Unknown August 16 7:42am Anxiety Unknown September 06 7:48am Cancer associated pain Unknown September 06, 2025 7:48am Hepatocellular carcinoma Unknown r 2024 7:48am Multiple myeloma Unknown September 06, 025 7:48am Acute right hip pain Unknown September 192024 9:56am Hematuria Unknown September 19, 025 9:56am Acute thoracic back pain Unknown r 2024 9:56am Bone marrow hypocellularity Unknown [facility] 2024 9:56am Cancer-related pain Unknown September 9:56am Chemotherapy-induced neutropenia Unknown September 19, 2025 9:56am Chronic copper deficiency Unknown [facility] er 2024 9:56am Degenerative cervical spinal stenosis Unknown September 19, 2025 9:56am [facility] September 19, 2025 9:56am Encounter for chemotherapy management Unknown September 19, 2025 9:56am Encounter for coordination of complex care [facility] September 19, 2025 9:56am History of 2019 novel orta virus disease (COVID-19) Unknown September 19, 2025 9:56am 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 Un known September 19, 2025 9:56am Iron deficiency Unknown September 19 9:56am 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) Unknown September 19, 2025 9:5 6am Multiple myeloma Unknown September 19, 2025 9:56am Neutropenia, unspecified Unknown [facility] r 2024 9:56am Obesity Unknown September 19 9:56am 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 Unknown September 19, 2025 9:56am Frontal sinusitis Unknown September 19, 2025 9:56am Diabetes mellitus Unknown September 19, 2025 9:56am Fibromyalgia Unknown September 19 9:56am Smoldering multiple myeloma (SMM) Unknown September 19, 2025 9:56am Hemorrhoids, complicated Unknown [facility] r 2024 10:09am Hepatocellular carcinoma Unknown [facility] r 2024 10:09am Iron deficiency anemia Unknown September 19, 2025 10:09am Bone marrow hypocellularity Unknown [facility] 2024 10:09am Cancer-related pain Unknown September 10:09am [facility]ineoplastic [facility] September 19, 2025 10:09am Encounter for coordination of complex care [facility] September 19, 2025 10:09am 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 Un known September 19, 2025 10:09am 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) Unknown September 19, 2025 10: 09am Multiple myeloma Unknown September 19, 2025 10:09am 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 Unknown September 19, 2025 10:09am Assessments Diagnosis Onset Date Resolution Status Admit Date Cancer associated pain acuteSeptember 2024 9:55amHepatocellular carcinomaacuteSeptember 2024 9:55amNauseaacuteSeptember 2024 9:55amHemorrhoids, complicatedacute July 27, 2025 10:25amHepatocellular carcinomaacuteSept2024 10:25amIron deficiency anemiaacuteSept2024 10:25amBone marrow hypocellularitychronicSept2024 10:25amCancer-related painchronic July 27, 2025 10:25amEncounter for antineoplastic immunotherapychronic July 27, 2025 10:25amEncounter for coordination of complex carechronic July 27, 2025 10:25am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chronic July 27, 2025 10:25am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)chronicSept2024 10:25amMultiple myelomachronic July 27, 2025 10:25amThrombocytopenia due to sequestrationchronic July 27, 2025 10:25amCancer associated painacuteOctober 2024 7:42am Hepatocellular carcinomaacuteOctober 2024 7:42amMultiple myelomaacute August 16, 2025 7:42amNauseaacuteOctober 2024 7:42amAnxietyacute September 06, 2025 7:48amCancer associated painacuteNov2024 7:48am Hepatocellular carcinomaacuteNov2024 7:48amMultiple myelomaacute September 06, 2025 7:48amAcute right hip painacuteNovember 2024 9:56am HematuriaacuteNovember 2024 9:56amAcute thoracic back painchronicNovember 2024 9:56amBone marrow hypocellularitychronicNovember 2024 9:56am Cancer-related painchronicNovember 2024 9:56amChemotherapy-induced neutropeniachronicNovember 2024 9:56amChronic copper deficiencychronic September 19, 2025 9:56amDegenerative cervical spinal stenosischronicNovember 2024 9:56amEncounter for antineoplastic immunotherapychronicNovember 2024 9:56amEncounter for chemotherapy managementchronicNovember 2024 9:56amEncounter for coordination of complex carechronicNovember 2024 9:56amHistory of 2019 novel coronavirus disease (COVID-19)chronicNovember 2024 9:56am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chronicNov2024 9:56amIron deficiencychronicNov2024 9:56am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)chronicNovember 2024 9:56amMultiple myelomachronicNov2024 9:56amNeutropenia, unspecified chronicNovember 2024 9:56amObesitychronicNov2024 9:56am Thrombocytopenia due to sequestrationchronicNov2024 9:56amFrontal sinusitisresolvedNovember 2024 9:56amDiabetes mellitusinactiveNovember 2024 9:56amFibromyalgiainactiveNovember 2024 9:56amSmoldering multiple myeloma (SMM)inactiveSeptember 19, 2025 9:56amHemorrhoids, complicated acuteSepember 2024 10:09amHepatocellular carcinomaacuteNov2024 10:09amIron deficiency anemiaacuteNovember 2024 10:09amBone marrow hypocellularitychronicNov2024 10:09amCancer-related painchronic September 19, 2025 10:09amEncounter for antineoplastic immunotherapychronic September 19, 2025 10:09amEncounter for coordination of complex carechronic September 19, 2025 10:09am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chronic September 19, 2025 10:09am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)chronicNov2024 10:09amMultiple myelomachronic September 19, 2025 10:09amThrombocytopenia due to sequestrationchronicNov2024 10:09am Plan of Treatment Author Fabiola Marinelli [facility] 1:13pmTe[facility]istamab received at [facility]: She was admitted 08/04/2023 for Teclistamab [...] IVIG 0.4 mg/kg every 3 months at [facility]--now monthly at --Previous doses held cycle [...] 100% dose 123 mg started 09/28/2024 at [facility]. Tolerated well, continue every 3-week therapy. -- [...] than 600). -- 07/27/2025: Liver ablation at [facility] 06/22/2025, then was able to resume Teclistamab [...] on most recent labs late August at [facility]. Currently receiving IVIG monthly at [facility] (IgG was 313 on last labs 12/29/2024). [...] for consultation with Dr. Andre Benavidez at [facility] in 2016. Her persistent thrombocytopenia made her [...] pain. --The patient was evaluated by Dr. hAn of radiation oncology for palliative radiation to [...] the patient in hematology tumor board at [facility]. --Infusion port placed 03/22/2020 at [facility] due to low platelets. No complications. [...] for cytopenias. Evaluation for CAR-T therapy at [facility]. Send myeloma labs and skeletal survey in [...] marrow biopsy, but this would not change analyst, therefore we will give Pomalyst (now decreased [...] and kappa/lambda light chains (ok to see [employer]). --09/17/2022: Mojgan is here for cycle 3 [...] novel therapies that are not available at [facility]. We did discuss potential risk of cytokine release syndrome with by specific antibody therapy that would require a short hospital admission at [facility]. For now we set up a follow-up visit in 3 months with myeloma laboratories, sooner if requested by Dr. Lindquist. Patient is in agreement with this plan over this 35-minute moderate complexity visit for coordination of care with [facility]. --10/21/2023: As summarized in the HPI, Mojgan has been on active therapy with Dr. Lindquist of malignant hematology at [facility] since initiation of Teclistamab by specific antibody for refractory myeloma. This was initiated 08/04/2023 with inpatient admission for ramp-up phase. She had grade 1 CRS (fevers) and ICANS (suzanna ICE score 8/10). She then received cycle 2-day 1 weekly at [facility] from 08/17 through last dose 09/08/2023. Her third cycle was delayed due to positive COVID-19 on 09/12/2023 treated with Paxlovid in [place]. She was to resume therapy with Teclistamab on 10/13 but had a recurrent sinus infection treated with antibiotics and steroids by Dr. Lindquist. She received IVIG 09/22/2023 at [facility] for IgG level less than 400. We wrote orders today to resume IVIG here in [place] due to her recurrent infections and persistent pancytopenia (ANC 1000, platelets 35-40,000) secondary to known liver disease/SALGADO cirrhosis. -- We are unable to deliver Teclistamab therapy locally due to pharmacy control issues and she will continue Teclistamab at [facility]. I personally spoke to Dr. Lindquist [...] primary follow-up for myeloma will be at [facility]. High complexity 1 hour visit. -- 01/21/2024: Updated history from [facility] from patient, notes scanned in, and telephone [...] continues Teclistamab therapy every 3 weeks at [facility] with IVIG infusions. Since last visit with me she had hospitalization for sepsis due to spontaneous bacterial peritonitis. She continues monthly IVIG at [facility] due to severe hypogammaglobulinemia from multiple [...] Dr. López. 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 I will communicate with Dr. López whether it is feasible to transition her care locally prior to the winter months. If she continues follow-up in [place] we will follow with her every 6 months for local supportive care. We have also reviewed notes from gastroenterology, pulmonary medicine, palliative care, and outside notes from [facility]. High complexity 45-minute visit with 30 minutes coordination of care. --09/15/2024: Patient has been followed at [facility] for Teclistamab therapy, but now that she has been stable for over a year and we have appropriate licensing and in-service here [facility], we will transfer Teclistamab therapy for primary follow-up at [facility]. Orders are written to proceed next [...] laboratories and documentation of Teclistamab therapy at [facility]. --10/05/2024: Here for follow-up after initial dose of Teclistamab therapy at [facility] 09/28/2024. She tolerated this well with no concerning symptoms from last visit 3 weeks ago. Laboratories reviewed showing stable leukopenia wth ANC 800 and no signs or symptoms of infection. Hemoglobin stable at 9.9, platelet count stable at 53,000 without bleeding. Normal renal and hepatic function. [place] and lambda light chains are below the [...] see her sooner after her evaluations at [facility] as noted below. High complexity 45-minute [...] core morbidities, coordination of care with her [facility]'s upcoming procedure and new diagnosis of iron [...] for 6-week follow-up after liver ablation at [facility] 06/22/2025, then was able to resume Teclistamab [...] are requesting results of her cystoscopy from [place] last month. Laboratories reviewed today still show [...] hepatocellular carcinoma. She agrees to referral to [facility] interventional radiology for consideration of potential [...] of right liver lobe hepatocellular carcinoma at [facility] on 01/05/2025. Tolerated well without residual pain. Followup MRI due in 3 months after ablation (April 2025). 03/16/2025: No abdominal pain and stable [...] Segment 6 ablation of hepatocellular carcinoma at [facility] on 06/22/2025. Received 1 unit of platelet [...] evaluation. 12/29/2024: Reviewed recommendations from colorectal surgery [employer] who noted the patient was too high [...] that may further impair her liver function. [facility] hepatology discussed liver transplant but she is likely no longer a candidate for this given active myeloma. We chose least hepatotoxic regimen for treatment of her active myeloma with 50% dose reduction of Velcade. Liver function remained stable since start of therapy 04/10/2020. --Requested prior liver biopsy and [facility] liver clinic records. Dose reduction 20% Kyprolis due to SALGADO with cirrhosis (normal bilirubin and transaminases). Stable LFTs on now Teclistamab therapy at [facility], transition to [facility]. Now followed by Dr. Sanchez at [facility] GI. 11/16/2024: Sending to [facility] interventional radiology for new diagnosis of HCC and will determine if she is a candidate for local therapy with embolization or ablation. 12/29/2024, 02/03/2025, 03/16/2025, 04/20/2025, 06/15/2025, 07/27/2025: Continue follow-up with Dr. Sanchez [facility] gastroenterology. Patient has recurrent infections, frequent sinus infections and UTI with IVIG delivered at [facility] monthly. 09/15/2024: With transition Teclistamab therapy to [facility], we will also arrange ongoing IVIG [...] 04/20/2025 : Now continue monthly IVIG at [facility] since transfer of care from . Recurrent [...] I previously reviewed her outpatient records from [facility], including review of notes, laboratories, and [...] She continues surveillance with liver clinic at [facility] and I will continue to follow [...] Dr. Supa Lindquist for further therapy at [facility] as noted above. -- 10/21/2023: Platelet count has remained in the 35-40,000 range since starting Teclistamab for multiple myeloma. Continue follow-up with Dr. Supa Lindquist for further therapy at [facility]. --01/21/2024, 06/29/2024, 10/05/2024, 11/16/2024: Most recent platelets responding in 50-60,000s range. She has now completed over 1 year of Teclistamab therapy and will continue injections locally. -- 12/29/2024: Platelet count 62,000 but need to recheck next Thursday to determine if she needs platelet transfusion for hepatic ablation procedure at [facility]. Transfuse if platelets less than 50,000. [...] from . Discussion with primary oncologist at [facility]. Coordination of workup for chronic cough. Review of outside records--transition of Teclistamab and IVIG therapy to [facility] orders reviewed with [facility] 10/05/2024: New liver lesion on ultrasound coordinating MRI liver with [facility] GI. 11/16/2024: Coordinating evaluation by interventional radiology and colorectal surgery for further evaluation of HCC and complicated hemorrhoids respectively. 12/29/2024: Coordinating platelet transfusion as needed before hepatic microwave ablation by interventional radiology at [facility], orders for iron deficiency anemia, ongoing Teclistamab [...] carcinoma, AFP and quantitative immunoglobulins surveillance. Author Lulú Sweeney [facility] HospitalAuthoredNovember 2024 10:24amTeclistamab received at [facility]: She was admitted 08/04/2023 for Teclistamab [...] IVIG 0.4 mg/kg every 3 months at [facility]--now monthly at --Previous doses held cycle [...] 100% dose 123 mg started 09/28/2024 at [facility]. Tolerated well, continue every 3-week therapy. [...] than 600). -- 07/27/2025: Liver ablation at [facility] 06/22/2025, then was able to resume Teclistamab [...] on most recent labs late August at [facility]. Currently receiving IVIG monthly at [facility] (IgG was 313 on last labs 12/29/2024). [...] for consultation with Dr. Andre Benavidez at [facility] in 2017. Her persistent thrombocytopenia made her [...] the patient in hematology tumor board at [facility]. --Infusion port placed 03/22/2020 at [facility] due to low platelets. No complications. [...] for cytopenias. Evaluation for CAR-T therapy at [facility]. Send myeloma labs and skeletal survey in [...] marrow biopsy, but this would not change analyst, therefore we will give Pomalyst (now decreased [...] and kappa/lambda light chains (ok to see [employer]). --09/17/2022: Mojgan is here for cycle 3 [...] novel therapies that are not available at [facility]. We did discuss potential risk of cytokine release syndrome with by specific antibody therapy that would require a short hospital admission at [facility]. For now we set up a follow-up visit in 3 months with myeloma laboratories, sooner if requested by Dr. Lindquist. Patient is in agreement with this plan over this 35-minute moderate complexity visit for coordination of care with [facility]. --10/21/2023: As summarized in the HPI, Mojgan has been on active therapy with Dr. Lindquist of malignant hematology at [facility] since initiation of Teclistamab by specific antibody for refractory myeloma. This was initiated 08/04/2023 with inpatient admission for ramp-up phase. She had grade 1 CRS (fevers) and ICANS (suzanna ICE score 8/10). She then received cycle 2-day 1 weekly at [facility] from 08/17 through last dose 09/08/2023. Her third cycle was delayed due to positive COVID-19 on 09/12/2023 treated with Paxlovid in [place]. She was to resume therapy with Teclistamab on 10/13 but had a recurrent sinus infection treated with antibiotics and steroids by Dr. Lindquist. She received IVIG 09/22/2023 at [facility] for IgG level less than 400. We wrote orders today to resume IVIG here in [place] due to her recurrent infections and persistent pancytopenia (ANC 1000, platelets 35-40,000) secondary to known liver disease/SALGADO cirrhosis. -- We are unable to deliver Teclistamab therapy locally due to pharmacy control issues and she will continue Teclistamab at [facility]. I personally spoke to Dr. Lindquist [...] primary follow-up for myeloma will be at [facility]. High complexity 1 hour visit. -- 01/21/2024: Updated history from [facility] from patient, notes scanned in, and telephone [...] continues Teclistamab therapy every 3 weeks at [facility] with IVIG infusions. Since last visit with me she had hospitalization for sepsis due to spontaneous bacterial peritonitis. She continues monthly IVIG at [facility] due to severe hypogammaglobulinemia from multiple [...] Dr. López. 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 I will communicate with Dr. López whether it is feasible to transition her care locally prior to the winter months. If she continues follow-up in [place] we will follow with her every 6 months for local supportive care. We have also reviewed notes from gastroenterology, pulmonary medicine, palliative care, and outside notes from [facility]. High complexity 45-minute visit with 30 minutes coordination of care. --09/15/2024: Patient has been followed at [facility] for Teclistamab therapy, but now that she has been stable for over a year and we have appropriate licensing and in-service here [facility], we will transfer Teclistamab therapy for primary follow-up at [facility]. Orders are written to proceed next [...] laboratories and documentation of Teclistamab therapy at [facility]. --10/05/2024: Here for follow-up after initial dose of Teclistamab therapy at [facility] 09/28/2024. She tolerated this well with no concerning symptoms from last visit 3 weeks ago. Laboratories reviewed showing stable leukopenia wth ANC 800 and no signs or symptoms of infection. Hemoglobin stable at 9.9, platelet count stable at 53,000 without bleeding. Normal renal and hepatic function. [place] and lambda light chains are below the [...] see her sooner after her evaluations at [facility] as noted below. High complexity 45-minute [...] core morbidities, coordination of care with her [facility]'s upcoming procedure and new diagnosis of iron [...] for 6-week follow-up after liver ablation at [facility] 06/22/2025, then was able to resume Teclistamab [...] are requesting results of her cystoscopy from [place] last month. Laboratories reviewed today still show [...] hepatocellular carcinoma. She agrees to referral to [facility] interventional radiology for consideration of potential [...] of right liver lobe hepatocellular carcinoma at [facility] on 01/05/2025. Tolerated well without residual pain. Followup MRI due in 3 months after ablation (April 2025). 03/16/2025: No abdominal pain and stable [...] Segment 6 ablation of hepatocellular carcinoma at [facility] on 06/22/2025. Received 1 unit of platelet [...] evaluation. 12/29/2024: Reviewed recommendations from colorectal surgery [employer] who noted the patient was too high [...] that may further impair her liver function. [facility] hepatology discussed liver transplant but she is likely no longer a candidate for this given active myeloma. We chose least hepatotoxic regimen for treatment of her active myeloma with 50% dose reduction of Velcade. Liver function remained stable since start of therapy 04/10/2020. --Requested prior liver biopsy and [facility] liver clinic records. Dose reduction 20% Kyprolis due to SALGADO with cirrhosis (normal bilirubin and transaminases). Stable LFTs on now Teclistamab therapy at [facility], transition to [facility]. Now followed by Dr. Sanchez at [facility]. 11/16/2024: Sending to [facility] interventional radiology for new diagnosis of HCC and will determine if she is a candidate for local therapy with embolization or ablation. 12/29/2024, 02/03/2025, 03/16/2025, 04/20/2025, 06/15/2025, 07/27/2025: Continue follow-up with Dr. Sanchez [facility] gastroenterology. Patient has recurrent infections, frequent sinus infections and UTI with IVIG delivered at [facility] monthly. 09/15/2024: With transition Teclistamab therapy to [facility], we will also arrange ongoing IVIG [...] 04/20/2025 : Now continue monthly IVIG at [facility] since transfer of care from . Recurrent [...] I previously reviewed her outpatient records from [facility], including review of notes, laboratories, and [...] She continues surveillance with liver clinic at [facility] and I will continue to follow [...] Dr. Supa Lindquist for further therapy at [facility] as noted above. -- 10/21/2023: Platelet count has remained in the 35-40,000 range since starting Teclistamab for multiple myeloma. Continue follow-up with Dr. Supa Lindquist for further therapy at [facility]. --01/21/2024, 06/29/2024, 10/05/2024, 11/16/2024: Most recent platelets responding in 50-60,000s range. She has now completed over 1 year of Teclistamab therapy and will continue injections locally. -- 12/29/2024: Platelet count 62,000 but need to recheck next Thursday to determine if she needs platelet transfusion for hepatic ablation procedure at [facility]. Transfuse if platelets less than 50,000. [...] from . Discussion with primary oncologist at [facility]. Coordination of workup for chronic cough. Review of outside records--transition of Teclistamab and IVIG therapy to [facility] orders reviewed with [facility] 10/05/2024: New liver lesion on ultrasound coordinating MRI liver with [facility] GI. 11/16/2024: Coordinating evaluation by interventional radiology and colorectal surgery for further evaluation of HCC and complicated hemorrhoids respectively. 12/29/2024: Coordinating platelet transfusion as needed before hepatic microwave ablation by interventional radiology at [facility], orders for iron deficiency anemia, ongoing Teclistamab [...] Tests Test Name Ordered Date Scheduled Date Neutrophils (%) (Auto) September 19, 2025 10:00 am Lymphocytes (%) (Auto)September 19, 2025 10:00amMonocytes (%) (Auto)September 19, 2025 10:00amEosinophils (%) (Auto)September 19, 2025 10:00amBasophils (%) (Auto)September 19, 2025 10:00amNucleated RBC Relative Count (auto)September 19, 2025 10:00amNeutrophils # (Auto)September 19, 2025 10:00amLymphocytes # (Auto)September 19, 2025 10:00amMonocytes # (Auto)September 19, 2025 10:00am Eosinophils # (Auto)September 19, 2025 10:00amBasophils # (Auto)September 19, 2025 10:00amN/AMarch 2019 11:30amN/AJuly 2020 9:05amN/AMarch 2019 11:30amN/AJuly 2020 9:05amComment (FISH)January 26, 2020 11:30am Comment (FISH)May 03, 2021 9:05amComprehensive Metabolic PanelMarch 2024 9:46pmComprehensive Metabolic PanelMarch 2024 9:46pm1 DaysComprehensive Metabolic PanelJanuary 2021 10:40amJanuary 2021 10:00amAFP Tumor Marker, SerumSeptember 2024 3:07pm Future Visits Future appointment information is unavailable Future Procedures Procedure Name Ordered Date Scheduled Date Complete Blood Count Auto Diff September 15 1:46pm 1 Days Complete Blood Count Auto Diff January 28, 2025 9:46pm 1 Days Complete Blood Count Auto Diff January 28, 2025 9:46pm 1 Days Complete Blood Count Auto Diff January 28, 2025 9:46pm 1 Days Complete Blood Count Auto Diff September 15 1:46pm 1 Days Complete Blood Count Auto Diff September 15 1:46pm 1 Days Complete Blood Count Auto Diff December 29 1:00pm 1 Days Complete Blood Count Auto Diff January 28, 2025 9:46pm 1 Days Complete Blood Count Auto Diff January 28, 2025 9:46pm 1 Days Complete Blood Count Auto Diff January 28, 2025 9:46pm 1 Days Complete Blood Count Auto Diff January 28, 2025 9:46pm 1 Days Creatinine March 11, 2025 4:26pm 1 Days Creatinine March 11, 2025 4:26pm 1 Days Creatinine March 11, 2025 4:26pm 1 Days Creatinine March 11, 2025 4:26pm 1 Days Creatinine March 11, 2025 4:26pm 1 Days Creatinine March 11, 2025 4:26pm 1 Days Creatinine March 11, 2025 4:26pm 1 Days Creatinine March 11, 2025 4:26pm 1 Days Iron and TIBC Profile December 29, 2024 1:00pm 1 Days Ferritin December 29, 2024 1:00pm 1 Day s Imaging on Disk June 10, 2023 12:39pm 1 Days Send Medical Records to: June 10, 2023 12:39p m 1 Days Cytogenetics Neogenomic January 26, 2020 2:58pm January 26, 2020 10:30am Cytogenetics Neogenomic May 03, 2021 12:13pm J jim 2020 8:05am Fish Not Bladder Neogenomic January 26, 2020 2:5 8pm January 26, 2020 10:30am Fish Not Bladder Neogenomic May 03, 2021 12:13 pm May 03, 2021 8:05am Flowcytometry Neogenomic January 26, 2020 2:58pm January 26, 2020 10:30am Flowcytometry Neogenomic May 03, 2021 12:13pm May 03, 2021 8:05am Orders Panel Function Communication Order October 30, 2020 1:41pm October 30, 2020 1:41pm Patient Navigator Distress Screening February 18, 2023 9:20am February 18, 2023 9:20am Patient Navigator Distress Screening December 26, 2022 9:44am December 26, 2022 9:44am Complete Blood Count Auto Diff November 06, 2021 10:40am November 12, 2021 10:00am ANC>=500 September 15, 2024 1:46pm Febru [email or web address] 12:00am ANC>=500 September 15, 2024 1:46pm January 18, 2025 11:00pm ANC>=500 January 28, 2025 9:46pm February [id number] 11:00pm ANC>=500 January 28, 2025 9:46pm April 11:00pm ANC>=500 September 15, 2024 1:46pm Novem 2023 12:00am ANC>=500 September 15, 2024 1:46pm Decem 2023 12:00am ANC>=500 September 15, 2024 1:46pm Janua ry 2024 12:00am ANC>=500 September 15, 2024 1:46pm Febru cody 2024 12:00am ANC>=500 January 28, 2025 9:46pm March 06, 2025 11:00pm ANC>=500 January 28, 2025 9:46pm March 11:00pm ANC>=500 January 28, 2025 9:46pm May 11:00pm ANC>=500 January 28, 2025 9:46pm June [id number] 11:00pm ANC>=500 January 28, 2025 9:46pm Septembe r 2024 11:00pm ANC>=500 January 28, 2025 9:46pm August 15, 2025 11:00pm ANC>=500 January 28, 2025 9:46pm September 19, 2025 12:00am Hold & Call Ordering Physici an if Pt Does Not Meet Criteria September 15, 2024 1:46pm September 28, 2024 12:00am Hold & Call Ordering Physici an if Pt Does Not Meet Criteria September 15, 2024 1:46pm October 27, 2024 12:00am Hold & Call Ordering Physici an if Pt Does Not Meet Criteria September 15, 2024 1:46pm December 08, 2024 12:00am Hold & Call Ordering Physici an if Pt Does Not Meet Criteria September 15, 2024 1:46pm December 29, 2024 12:00am Hold & Call Ordering Physici an if Pt Does Not Meet Criteria January 28, 2025 9:46pm February 15, 2025 11:00pm Hold & Call Ordering Physici an if Pt Does Not Meet Criteria January 28, 2025 9:46pm March 06, 2025 11:00pm Hold & Call Ordering Physici an if Pt Does Not Meet Criteria January 28, 2025 9:46pm March 27, 2025 11:00pm Hold & Call Ordering Physici an if Pt Does Not Meet Criteria January 28, 2025 9:46pm April 19, 2025 11:00pm Hold & Call Ordering Physici an if Pt Does Not Meet Criteria January 28, 2025 9:46pm August 15, 2025 11:00p m Hold & Call Ordering Physici an if Pt Does Not Meet Criteria September 15, 2024 1:46pm November 17, 2024 12:00am Hold & Call Ordering Physici an if Pt Does Not Meet Criteria September 15, 2024 1:46pm January 18, 2025 11:00pm Hold & Call Ordering Physici an if Pt Does Not Meet Criteria January 28, 2025 9:46pm May 17, 2025 11:00pm Hold & Call Ordering Physici an if Pt Does Not Meet Criteria January 28, 2025 9:46pm June 07, 2025 11:00pm Hold & Call Ordering Physici an if Pt Does Not Meet Criteria January 28, 2025 9:46pm July 12, 2025 11:00pm Hold & Call Ordering Physici an if Pt Does Not Meet Criteria January 28, 2025 9:46pm September 19, 2025 12:00 am Hemoglobin >/= 8.0g/dL September 15, 2024 1:46p m November 17, 2024 12:00am Hemoglobin >/= 8.0g/dL September 15, 2024 1:46p m December 29, 2024 12:00am Hemoglobin >/= 8.0g/dL January 28, 2025 9:46pm A pril 2024 11:00pm Hemoglobin >/= 8.0g/dL January 28, 2025 9:46pm M ay 2024 11:00pm Hemoglobin >/= 8.0g/dL September 15, 2024 1:46p m September 28, 2024 12:00am Hemoglobin >/= 8.0g/dL January 28, 2025 9:46pm J jim 2024 11:00pm Hemoglobin >/= 8.0g/dL January 28, 2025 9:46pm S eptember 2024 11:00pm Hemoglobin >/= 8.0g/dL January 28, 2025 9:46pm N ovember 2024 12:00am No New Heart Problems Report ed Since Last Physician Visit January 30, 2023 7:40am February 05, 2023 11:00pm No New Heart Problems Report ed Since Last Physician Visit January 30, 2023 7:40am September 28, 2024 12:00am No New Heart Problems Report ed Since Last Physician Visit March 11, 2025 4:26pm April 19, 2025 11:00pm No New Heart Problems Report ed Since Last Physician Visit March 11, 2025 4:26pm May 17, 2025 11:00pm No New Heart Problems Report ed Since Last Physician Visit March 11, 2025 4:26pm July 19, 2025 11:00pm No New Heart Problems Report ed Since Last Physician Visit January 30, 2023 7:40am October 29, 2023 12:00am No New Heart Problems Report ed Since Last Physician Visit January 30, 2023 7:40am January 03, 2025 12:00am No New Heart Problems Report ed Since Last Physician Visit January 30, 2023 7:40am January 30, 2025 11:00pm No New Heart Problems Report ed Since Last Physician Visit January 30, 2023 7:40am March 06, 2025 11:00pm No New Heart Problems Report ed Since Last Physician Visit March 11, 2025 4:26pm September 12, 2025 12:00am Apply O2 via Nasal Cannula 4 L to Maintain SpO2 of >=90% March 28, 2021 12:33pm April 04, 2021 11:00pm Apply O2 via Nasal Cannula 4 L to Maintain SpO2 of >=90% March 28, 2021 12:33pm April 11, 2021 11:00pm Apply O2 via Nasal Cannula 4 L to Maintain SpO2 of >=90% September 15, 2024 1:46pm September 28, 2024 12:00am Apply O2 via Nasal Cannula 4 L to Maintain SpO2 of >=90% January 30, 2023 7:40am September 28, 2024 12:00am Apply O2 via Nasal Cannula 4 L to Maintain SpO2 of >=90% September 15, 2024 1:46pm October 27, 2024 12:00am Apply O2 via Nasal Cannula 4 L to Maintain SpO2 of >=90% September 15, 2024 1:46pm November 17, 2024 12:00am Apply O2 via Nasal Cannula 4 L to Maintain SpO2 of >=90% September 15, 2024 1:46pm December 08, 2024 12:00am Apply O2 via Nasal Cannula 4 L to Maintain SpO2 of >=90% December 29, 2024 1:00pm January 03, 2025 12:00am Apply O2 via Nasal Cannula 4 L to Maintain SpO2 of >=90% September 15, 2024 1:46pm January 18, 2025 11:00pm Apply O2 via Nasal Cannula 4 L to Maintain SpO2 of >=90% January 30, 2023 7:40am January 30, 2025 11:00pm Apply O2 via Nasal Cannula 4 L to Maintain SpO2 of >=90% January 30, 2023 7:40am March 06, 2025 11:00pm Apply O2 via Nasal Cannula 4 L to Maintain SpO2 of >=90% January 28, 2025 9:46pm March 27, 2025 11:00pm Apply O2 via Nasal Cannula 4 L to Maintain SpO2 of >=90% March 11, 2025 4:26pm April 19, 2025 11:00pm Apply O2 via Nasal Cannula 4 L to Maintain SpO2 of >=90% January 28, 2025 9:46pm May 17, 2025 11:00pm Apply O2 via Nasal Cannula 4 L to Maintain SpO2 of >=90% March 11, 2025 4:26pm May 17, 2025 11:00pm Apply O2 via Nasal Cannula 4 L to Maintain SpO2 of >=90% January 28, 2025 9:46pm July 12, 2025 11:00pm Apply O2 via Nasal Cannula 4 L to Maintain SpO2 of >=90% March 11, 2025 4:26pm July 19, 2025 11:00pm Apply O2 via Nasal Cannula 4 L to Maintain SpO2 of >=90% January 28, 2025 9:46pm August 15, 2025 11:00pm Apply O2 via Nasal Cannula 4 L to Maintain SpO2 of >=90% March 11, 2025 4:26pm September 12, 2025 12:00am Apply O2 via Nasal Cannula 4 L to Maintain SpO2 of >=90% January 28, 2025 9:46pm September 19, 2025 12:00am Apply O2 via Nasal Cannula 4 L to Maintain SpO2 of >=90% January 30, 2023 7:40am February 05, 2023 11:00pm Apply O2 via Nasal Cannula 4 L to Maintain SpO2 of >=90% January 30, 2023 7:40am October 29, 2023 12:00am Apply O2 via Nasal Cannula 4 L to Maintain SpO2 of >=90% September 15, 2024 1:46pm December 29, 2024 12:00am Apply O2 via Nasal Cannula 4 L to Maintain SpO2 of >=90% January 30, 2023 7:40am January 03, 2025 12:00am Apply O2 via Nasal Cannula 4 L to Maintain SpO2 of >=90% December 29, 2024 1:00pm January 09, 2025 11:00pm Apply O2 via Nasal Cannula 4 L to Maintain SpO2 of >=90% January 28, 2025 9:46pm February 15, 2025 11:00pm Apply O2 via Nasal Cannula 4 L to Maintain SpO2 of >=90% January 28, 2025 9:46pm March 06, 2025 11:00pm Apply O2 via Nasal Cannula 4 L to Maintain SpO2 of >=90% January 28, 2025 9:46pm April 19, 2025 11:00pm Apply O2 via Nasal Cannula 4 L to Maintain SpO2 of >=90% January 28, 2025 9:46pm June 07, 2025 11:00pm Orders Panel Function Communication Order April 10, 2020 3:31pm April 10, 2020 3:31pm Orders Panel Function Communication Order April 10, 2020 3:32pm April 10, 2020 3:32pm Orders Panel Function Communication Order April 11, 2020 7:51am April 11, 2020 7:51am Orders Panel Function Communication Order April 17, 2020 8:49am April 17, 2020 8:49am Orders Panel Function Communication Order April 24, 2020 7:55am April 24, 2020 7:55am Orders Panel Function Communication Order May 15, 2020 8:04am May 15, 2020 8:04am Orders Panel Function Communication Order May 24, 2020 12:41pm May 24, 2020 12:41pm Orders Panel Function Communication Order May 31, 2020 2:25pm May 31, 2020 2:25pm Orders Panel Function Communication Order June 04, 2020 3:11pm June 04, 2020 3:11pm Orders Panel Function Communication Order June 06, 2020 3:06pm June 06, 2020 3:06pm Orders Panel Function Communication Order June 11, 2020 2:38pm June 11, 2020 2:38pm Orders Panel Function Communication Order June 19, 2020 8:25am June 19, 2020 8:25am Orders Panel Function Communication Order June 26, 2020 7:11am June 26, 2020 7:11am Orders Panel Function Communication Order June 26, 2020 12:40pm June 26, 2020 12:40pm Orders Panel Function Communication Order July 10, 2020 7:38am July 10, 2020 7:38am Orders Panel Function Communication Order July 17, 2020 10:46am July 17, 2020 10:46am Orders Panel Function Communication Order July 30, 2020 1:11pm July 30, 2020 1:11p m Orders Panel Function Communication Order July 31, 2020 7:27am July 31, 2020 7:27a m Orders Panel Function Communication Order August 21, 2020 9:00am August 21, 2020 9:00am Orders Panel Function Communication Order August 27, 2020 11:18am August 27, 2020 11:18am Orders Panel Function Communication Order August 28, 2020 1:06pm August 28, 2020 1:06pm Orders Panel Function Communication Order September 18, 2020 1:13pm September 18, 2020 1:13pm Orders Panel Function Communication Order October 30, 2020 2:04pm October 30, 2020 2:04pm Orders Panel Function Communication Order January 17, 2021 3:26pm January 17, 2021 3:26pm Orders Panel Function Communication Order April 15, 2021 3:16pm April 15, 2021 3:16pm Orders Panel Function Communication Order April 17, 2021 9:15am April 17, 2021 9:15am Orders Panel Function Communication Order April 17, 2021 9:17am April 17, 2021 9:17am Orders Panel Function Communication Order May 14, 2021 7:28am May 14, 2021 7:28am Orders Panel Function Communication Order June 12, 2021 8:56am June 12, 2021 8:56am Orders Panel Function Communication Order August 07, 2021 9:57am August 07, 2021 9:57am Orders Panel Function Communication Order September 04, 2021 9:59am September 04, 2021 9:59am Orders Panel Function Communication Order September 04, 2021 10:42am September 04, 2021 10:42am Orders Panel Function Communication Order September 18, 2021 11:19am September 18, 2021 11:19a m Orders Panel Function Communication Order September 25, 2021 9:28am September 25, 2021 9:28am Orders Panel Function Communication Order October 02, 2021 10:00am October 02, 2021 10:00am Orders Panel Function Communication Order October 09, 2021 8:30am October 09, 2021 8:30am Orders Panel Function Communication Order October 16, 2021 9:57am October 16, 2021 9:57am Orders Panel Function Communication Order October 22, 2021 4:14pm October 22, 2021 4:14pm Orders Panel Function Communication Order December 04, 2021 9:14am December 04, 2021 9:14am Orders Panel Function Communication Order December 18, 2021 8:34am December 18, 2021 8:34am Orders Panel Function Communication Order January 14, 2022 12:38pm January 14, 2022 12:38pm Orders Panel Function Communication Order February 05, 2022 2:43pm February 05, 2022 2:43pm Orders Panel Function Communication Order February 05, 2022 2:45pm February 05, 2022 2:45pm Orders Panel Function Communication Order March 25, 2022 2:34pm March 25, 2022 2:34pm Orders Panel Function Communication Order March 25, 2022 2:41pm March 25, 2022 2:41pm Orders Panel Function Communication Order April 09, 2022 11:14am April 09, 2022 11:14am Orders Panel Function Communication Order April 09, 2022 11:26am April 09, 2022 11:26am Orders Panel Function Communication Order June 04, 2022 9:09am June 04, 2022 9:09am Orders Panel Function Communication Order July 15, 2022 2:24pm July 15, 2022 2:24p m Orders Panel Function Communication Order July 23, 2022 9:25am July 23, 2022 9:25a m Orders Panel Function Communication Order July 29, 2022 3:12pm July 29, 2022 3:12p m Orders Panel Function Communication Order July 30, 2022 11:00am July 30, 2022 11:00am Orders Panel Function Communication Order August 06, 2022 8:26am August 06, 2022 8:26am Orders Panel Function Communication Order August 19, 2022 3:13pm August 19, 2022 3:13pm Orders Panel Function Communication Order August 19, 2022 3:17pm August 19, 2022 3:17pm Orders Panel Function Communication Order August 19, 2022 3:18pm August 19, 2022 3:18pm Orders Panel Function Communication Order August 20, 2022 10:31am August 20, 2022 10:31am Orders Panel Function Communication Order September 03, 2022 10:27am September 03, 2022 10:27am Orders Panel Function Communication Order September 17, 2022 10:10am September 17, 2022 10:10a m Orders Panel Function Communication Order September 24, 2022 11:15am September 24, 2022 11:15a m Orders Panel Function Communication Order September 24, 2022 11:16am September 24, 2022 11:16a m Orders Panel Function Communication Order October 21, 2022 2:49pm October 21, 2022 2:49pm Orders Panel Function Communication Order October 22, 2022 9:36am October 22, 2022 9:36am Orders Panel Function Communication Order October 30, 2022 9:21am October 30, 2022 9:21am Orders Panel Function Communication Order November 05, 2022 11:08am November 05, 2022 11:08am Orders Panel Function Communication Order November 05, 2022 11:49am November 05, 2022 11:49am Orders Panel Function Communication Order November 13, 2022 3:13pm November 13, 2022 3:13pm Orders Panel Function Communication Order November 17, 2022 1:47pm November 17, 2022 1:47pm Orders Panel Function Communication Order November 28, 2022 9:59am November 28, 2022 9:59am Orders Panel Function Communication Order December 01, 2022 2:07pm December 01, 2022 2:07pm Orders Panel Function Communication Order December 05, 2022 1:29pm December 05, 2022 1:29pm Orders Panel Function Communication Order December 26, 2022 8:47am December 26, 2022 8:47am Orders Panel Function Communication Order January 29, 2023 10:55am January 29, 2023 10:55am Orders Panel Function Communication Order February 06, 2023 7:32am February 06, 2023 7:32am Orders Panel Function Communication Order October 27, 2023 2:31pm October 27, 2023 2:31pm Orders Panel Function Communication Order November 26, 2023 11:28am November 26, 2023 11:28am Orders Panel Function Communication Order September 15, 2024 2:59pm September 15, 2024 2:59pm Orders Panel Function Communication Order October 27, 2024 9:53am October 27, 2024 9:53am Orders Panel Function Communication Order December 08, 2024 4:11pm December 08, 2024 4:11pm Orders Panel Function Communication Order January 02, 2025 1:44pm January 02, 2025 1:44pm Orders Panel Function Communication Order January 10, 2025 9:01am January 10, 2025 9:01am Orders Panel Function Communication Order February 03, 2025 11:13am February 03, 2025 11:13am Orders Panel Function Communication Order February 28, 2025 10:55am February 28, 2025 10:55am Orders Panel Function Communication Order March 08, 2025 9:02am March 08, 2025 9:02am Orders Panel Function Communication Order March 28, 2025 11:02am March 28, 2025 11:02am Orders Panel Function Communication Order March 28, 2025 11:18am March 28, 2025 11:18am Orders Panel Function Communication Order May 29, 2025 10:54am May 29, 2025 10:54am Orders Panel Function Communication Order June 07, 2025 12:55pm June 07, 2025 12:55pm Orders Panel Function Communication Order June 15, 2025 10:32am June 15, 2025 10:32am Orders Panel Function Communication Order June 15, 2025 10:52am June 15, 2025 10:52am Orders Panel Function Communication Order July 05, 2025 3:15pm July 05, 2025 3:15pm Orders Panel Function Communication Order July 14, 2025 10:23am July 14, 2025 10:23am Orders Panel Function Communication Order July 14, 2025 10:24am July 14, 2025 10:24am Orders Panel Function Communication Order August 03, 2025 7:41am August 03, 2025 7:41am Orders Panel Function Communication Order August 03, 2025 7:41am August 03, 2025 7:41am Orders Panel Function Communication Order August 16, 2025 8:27am August 16, 2025 8:27am Orders Panel Function Communication Order September 06, 2025 10:08am September 06, 2025 10:08am Orders Panel Function Communication Order 2025 10:30am 2025 10:30a m Orders Panel Function Communication Order 2025 1:43pm 2025 1:43pm Orders Panel Function Communication Order September 12, 2025 11:04am September 12, 2025 11:04a m Orders Panel Function Communication Order April 06, 2020 2:57pm April 06, 2020 2:57pm Orders Panel Function Communication Order April 10, 2020 8:14am April 10, 2020 8:14am Orders Panel Function Communication Order April 10, 2020 3:32pm April 10, 2020 3:32pm Orders Panel Function Communication Order April 11, 2020 7:47am April 11, 2020 7:47am Orders Panel Function Communication Order April 11, 2020 7:49am April 11, 2020 7:49am Orders Panel Function Communication Order April 11, 2020 7:50am April 11, 2020 7:50am Orders Panel Function Communication Order April 11, 2020 7:51am April 11, 2020 7:51am Orders Panel Function Communication Order April 24, 2020 7:53am April 24, 2020 7:53am Orders Panel Function Communication Order May 01, 2020 8:18am May 01, 2020 8:18am Orders Panel Function Communication Order May 07, 2020 2:54pm May 07, 2020 2:54pm Orders Panel Function Communication Order May 21, 2020 2:50pm May 21, 2020 2:50pm Orders Panel Function Communication Order May 29, 2020 7:27am May 29, 2020 7:27am Orders Panel Function Communication Order June 05, 2020 7:15am June 05, 2020 7:15am Orders Panel Function Communication Order June 05, 2020 8:42am June 05, 2020 8:42am Orders Panel Function Communication Order July 17, 2020 11:03am July 17, 2020 11:03am Orders Panel Function Communication Order August 07, 2020 8:36am August 07, 2020 8:36am Orders Panel Function Communication Order August 27, 2020 11:08am August 27, 2020 11:08am Orders Panel Function Communication Order August 27, 2020 11:16am August 27, 2020 11:16am Orders Panel Function Communication Order October 01, 2020 3:26pm October 01, 2020 3:26pm Orders Panel Function Communication Order October 04, 2020 11:22am October 04, 2020 11:22am Orders Panel Function Communication Order November 27, 2020 8:34am November 27, 2020 8:34am Orders Panel Function Communication Order May 14, 2021 12:40pm May 14, 2021 12:40pm Orders Panel Function Communication Order May 14, 2021 12:41pm May 14, 2021 12:41pm Orders Panel Function Communication Order June 07, 2021 3:25pm June 07, 2021 3:25pm Orders Panel Function Communication Order June 12, 2021 8:58am June 12, 2021 8:58am Orders Panel Function Communication Order July 10, 2021 2:35pm July 10, 2021 2:35pm Orders Panel Function Communication Order September 04, 2021 10:41am September 04, 2021 10:41am Orders Panel Function Communication Order September 18, 2021 11:25am September 18, 2021 11:25a m Orders Panel Function Communication Order September 25, 2021 9:25am September 25, 2021 9:25am Orders Panel Function Communication Order October 16, 2021 10:34am October 16, 2021 10:34a m Orders Panel Function Communication Order October 16, 2021 10:36am October 16, 2021 10:36a m Orders Panel Function Communication Order October 30, 2021 10:39am October 30, 2021 10:39a m Orders Panel Function Communication Order November 06, 2021 10:22am November 06, 2021 10:22am Orders Panel Function Communication Order November 08, 2021 9:39am November 08, 2021 9:39am Orders Panel Function Communication Order November 19, 2021 3:31pm November 19, 2021 3:31pm Orders Panel Function Communication Order November 20, 2021 8:48am November 20, 2021 8:48am Orders Panel Function Communication Order December 04, 2021 9:22am December 04, 2021 9:22am Orders Panel Function Communication Order January 01, 2022 11:25am January 01, 2022 11:25am Orders Panel Function Communication Order January 01, 2022 11:26am January 01, 2022 11:26am Orders Panel Function Communication Order January 13, 2022 1:56pm January 13, 2022 1:56pm Orders Panel Function Communication Order January 22, 2022 8:22am January 22, 2022 8:22am Orders Panel Function Communication Order March 05, 2022 10:34am March 05, 2022 10:34am Orders Panel Function Communication Order March 05, 2022 10:44am March 05, 2022 10:44am Orders Panel Function Communication Order March 19, 2022 8:11am March 19, 2022 8:11am Orders Panel Function Communication Order March 25, 2022 2:33pm March 25, 2022 2:33pm Orders Panel Function Communication Order March 25, 2022 2:34pm March 25, 2022 2:34pm Orders Panel Function Communication Order March 25, 2022 2:35pm March 25, 2022 2:35pm Orders Panel Function Communication Order March 25, 2022 2:39pm March 25, 2022 2:39pm Orders Panel Function Communication Order March 25, 2022 2:58pm March 25, 2022 2:58pm Orders Panel Function Communication Order June 30, 2022 10:02am June 30, 2022 10:02am Orders Panel Function Communication Order July 04, 2022 12:24pm July 04, 2022 12:24p m Orders Panel Function Communication Order July 11, 2022 7:45am July 11, 2022 7:45am Orders Panel Function Communication Order July 15, 2022 2:24pm July 15, 2022 2:24p m Orders Panel Function Communication Order August 19, 2022 3:16pm August 19, 2022 3:16pm Orders Panel Function Communication Order August 20, 2022 10:44am August 20, 2022 10:44am Orders Panel Function Communication Order August 20, 2022 2:08pm August 20, 2022 2:08pm Orders Panel Function Communication Order August 27, 2022 9:18am August 27, 2022 9:18am Orders Panel Function Communication Order September 18, 2022 12:07pm September 18, 2022 12:07p m Orders Panel Function Communication Order October 01, 2022 11:41am October 01, 2022 11:41a m Orders Panel Function Communication Order October 16, 2022 2:41pm October 16, 2022 2:41pm Orders Panel Function Communication Order November 05, 2022 11:09am November 05, 2022 11:09am Orders Panel Function Communication Order November 10, 2022 3:48pm November 10, 2022 3:48pm Orders Panel Function Communication Order November 28, 2022 8:46am November 28, 2022 8:46am Orders Panel Function Communication Order December 05, 2022 11:28am December 05, 2022 11:28am Orders Panel Function Communication Order December 25, 2022 2:34pm December 25, 2022 2:34pm Orders Panel Function Communication Order December 26, 2022 8:45am December 26, 2022 8:45am Orders Panel Function Communication Order January 22, 2023 1:16pm January 22, 2023 1:16pm Orders Panel Function Communication Order February 13, 2023 1:33pm February 13, 2023 1:33pm Orders Panel Function Communication Order February 18, 2023 9:23am February 18, 2023 9:23am Orders Panel Function Communication Order March 10, 2023 1:31pm March 10, 2023 1:31pm Orders Panel Function Communication Order September 27, 2024 12:27pm September 27, 2024 12:27p m Orders Panel Function Communication Order October 19, 2024 10:53am October 19, 2024 10:53a m Orders Panel Function Communication Order October 27, 2024 8:18am October 27, 2024 8:18am Orders Panel Function Communication Order October 27, 2024 9:53am October 27, 2024 9:53am Orders Panel Function Communication Order December 07, 2024 12:58pm December 07, 2024 12:58pm Orders Panel Function Communication Order January 18, 2025 3:14pm January 18, 2025 3:14pm Orders Panel Function Communication Order February 15, 2025 2:12pm February 15, 2025 2:12pm Orders Panel Function Communication Order March 03, 2025 2:20pm March 03, 2025 2:20pm Orders Panel Function Communication Order March 28, 2025 11:15am March 28, 2025 11:15am Orders Panel Function Communication Order March 28, 2025 11:16am March 28, 2025 11:16am Orders Panel Function Communication Order March 28, 2025 11:17am March 28, 2025 11:17am Orders Panel Function Communication Order April 11, 2025 8:58am April 11, 2025 8:58am Orders Panel Function Communication Order April 20, 2025 8:40am April 20, 2025 8:40am Orders Panel Function Communication Order April 20, 2025 9:00am April 20, 2025 9:00am Orders Panel Function Communication Order April 20, 2025 9:31am April 20, 2025 9:31am Orders Panel Function Communication Order June 07, 2025 12:50pm June 07, 2025 12:50pm Orders Panel Function Communication Order June 07, 2025 12:55pm June 07, 2025 12:55pm Orders Panel Function Communication Order June 14, 2025 2:58pm June 14, 2025 2:58pm Orders Panel Function Communication Order July 05, 2025 1:17pm July 05, 2025 1:17pm Orders Panel Function Communication Order August 02, 2025 10:17am August 02, 2025 10:17am Orders Panel Function Communication Order August 02, 2025 12:20pm August 02, 2025 12:20pm Orders Panel Function Communication Order August 09, 2025 8:58am August 09, 2025 8:58am Orders Panel Function Communication Order August 16, 2025 8:28am August 16, 2025 8:28am Orders Panel Function Communication Order August 16, 2025 8:28am August 16, 2025 8:28am Orders Panel Function Communication Order August 16, 2025 8:29am August 16, 2025 8:29am Orders Panel Function Communication Order August 31, 2025 6:49am August 31, 2025 6:49am Orders Panel Function Communication Order September 06, 2025 10:09am September 06, 2025 10:09am Orders Panel Function Communication Order 2025 10:29am 2025 10:29a m Orders Panel Function Communication Order 2025 1:42pm 2025 1:42pm Orders Panel Function Communication Order September 12, 2025 9:41am September 12, 2025 9:41am Orders Panel Function Communication Order September 12, 2025 11:43am September 12, 2025 11:43a m Platelets>=50,000 September 15, [facility]24 [facility] Platelets>=50,000 September 15, 2024 1:46pm Fe ruary 2024 12:00am Platelets>=50,000 September 15, 2024 1:46pm [facility] 2024 11:00pm Platelets>=50,000 January 28, 2025 9:46pm February 15, 2025 11:00pm Platelets>=50,000 January 28, 2025 9:46pm March 11:00pm Platelets>=50,000 January 28, 2025 9:46pm April [id number] 11:00pm Platelets>=50,000 January 28, 2025 9:46pm May [id number] 11:00pm Platelets>=50,000 January 28, 2025 9:46pm June 07, 2025 11:00pm Platelets>=50,000 January 28, 2025 9:46pm Septem sanjeev 2024 11:00pm Platelets>=50,000 January 28, 2025 9:46pm Novemb er 2024 12:00am Platelets>=50,000 September 15, 2024 1:46pm Nov ember 2023 12:00am Platelets>=50,000 September 15, 2024 1:46pm Dec ember 2023 12:00am Platelets>=50,000 September 15, 2024 1:46pm Akshat uary 2024 12:00am Platelets>=50,000 January 28, 2025 9:46pm March [id number] 11:00pm Platelets>=50,000 January 28, 2025 9:46pm Octobe r 2024 11:00pm Proceed with Treatment August 07, 2021 7:41am August 07, 2021 7:41am Proceed with Treatment August 07, 2021 9:57am August 07, 2021 9:57am Proceed with Treatment February 19, 2022 7:25am A pril 2021 7:25am Proceed with Treatment February 19, 2022 8:13am A pril 2021 8:13am Proceed with Treatment September 27, 2024 12:26 pm September 28, 2024 12:00am Proceed with Treatment October 27, 2024 9:52a m October 27, 2024 12:00am Proceed with Treatment January 28, 2025 9:46pm M ay 2024 11:00pm Proceed with Treatment August 16, 2025 8:27am August 15, 2025 11:00pm Proceed with Treatment November 13, 2022 3:13pm November 14, 2022 8:30am Proceed with Treatment December 07, 2024 12:57p m December 08, 2024 12:00am Proceed with Treatment January 18, 2025 3:14pm M arch 2024 11:00pm Proceed with Treatment February 15, 2025 2:11pm A pril 2024 11:00pm Proceed with Treatment January 28, 2025 9:46pm J une 2024 11:00pm Proceed with Treatment April 20, 2025 8:39am Ju ne 2024 11:00pm Proceed with Treatment April 20, 2025 8:58am Ju ne 2024 11:00pm Proceed with Treatment June 07, 2025 12:50pm June 07, 2025 11:00pm Treat Based on the Following Parameters: March 28, 2025 11:17am April 19, 2025 11:00pm Treat Based on the Following Parameters: March 28, 2025 11:17am May 17, 2025 11:00pm Treat Based on the Following Parameters: March 28, 2025 11:17am July 19, 2025 11:00pm Complete Blood Count Auto Diff July 27, 2 025 3:07pm September 19, 2025 10:00am Immunofixation,Serum July 27, 2025 3:07pm Immunoglobulins A/G/M, Qn, SerSept2024 10:07amImmunoglobulins A/G/M, Qn, SerSept2024 3:07pmFree K+L LT Chains, Qn, SSept2024 3:07pmProtein Electrophoresis, SerumSept2024 3:07pm Future Medications Future medication information is unavailable Patient Instructions Instruction Admit Date Carfilzomib CyclophosphamideSeptember 19, 2025 9:56am Goals Acute Goals Author Authored Date Maintain/increase activity l evels * Understands factors that may lead to activity intolerance * Helps perform self care activities * Maintains maximum range of motion * Increase/regain muscle mass and strength * Maintains VS WNL during activity * Maintain intact skin integrity Updated: 12/15/2022[facility] 1[facility]pm
--- OUTSIDE RECORDS SUMMARY | 2025-09-25 10:57 | XMS_ITS | Clinical Summary ---
Author Organization [facility] Address [address] [place] [address] Care Team Providers Care Boiler Room Helper Name Role Phone Yinka Thomson MD Unavailable [phone] Sima Paul RN Unavailable [phone] Power Swain DO Primary Care Provider [phone] Allergies Active AllergyReactionsCriticalityNoted DateCommentsAmoxicillinSwelling,RashLow 03/17/20065886MhqmyrvyqeYadzeqn64/20/2023 Other Reaction(s): Unknown DiclofenacUnknown,Hives05/25/2019Diclofenac VwursiCmwkh76/24/2019Diclofenac NcpzodCavkghwfLnsmou36/24/2019DoxycyclineUnknown,Txvmivij00/16/2006Erythromycin Hives10/31/2013Erythromycin OwnaEexwi90/15/2024LatexUnknown,Hives,RashMedium 04/13/2019MoxifloxacinHives,Rash,AmniyvzHon93/24/6274WaaejIoxvcpmpm63/20/2022 Other Reaction(s): dizziness KxfjchjeiwNeukf67/09/2024 Other Reaction(s): Hives, Unknown Reaction Other Reaction(s): Unknown Reaction TetracyclineUnknown,Hives,OrlwApevft08/12/2019Wound Dressing AdhesiveUnknown 05/15/2016 Medications MedicationSigDispense QuantityRefillsLast FilledStart [...] TABLET BY MOUTH EVERY THURSDAY, THURSDAY AND LZNTEL9901/11/2024ctive Teclistamab-cqyv 30 MG/3ML solution 03/21/2024ctive glucose blood (FREESTYLE LITE) test strip Indications:Type 2 diabetes mellitus with other specified complication, unspecified whether half-way insulin use (HCC)Use as instructed 100 each ctive FreeStyle lancets USE 1 LANCET EVERY DAY *E11.9*08/29/2024ctive cetirizine (ZyrTEC) 10 MG tablet Indications:Seasonal allergic rhinitis due to pollenTake 1 tablet (10 mg) by mouth at bedtime 90 tablet /52120611/16/2025ctive spironolactone (Aldactone) 50 MG tablet Indications:Chronic obstructive pulmonary disease, unspecified COPD type ([facility]) Take 1 tablet (50 mg) by mouth Daily 90 tablet 6Active furosemide (Lasix) 20 MG tablet Indications:Essential hypertensionTake 1 tablet (20 mg) by mouth Daily 90 tablet 6Active hydrocortisone (Anusol-HC) 2.5 % rectal cream APPLY RECTALLY 2 TO 4 TIMES PER DAY NEEDED FOR FADUCTYMURS00/15/2025Active magnesium oxide (Mag-Ox) 400 (240 Mg) MG [...] (one) time per week 9 mL 5Active pantoprazole (ProtoNix) 40 MG EC tablet Take 40 mg by mouth in the morning and 40 mg before bedtime.5Active Respiratory Therapy Supplies (Nebulizer/Tubing/Mouthpiece) kit Indications:Chronic obstructive pulmonary disease, unspecified COPD type (HCC)1 kit See administration instructions 1 kit 1105Active atorvastatin (Lipitor) 40 MG tablet Indications:HyperchylomicronemiaTake 1 tablet (40 mg) by mouth Daily 90 tablet 6Active fluticasone (Flonase) 50 MCG/ACT nasal spray Indications:Seasonal allergic rhinitis due to pollenADMINISTER 1 SPRAY INTO EACH NOSTRIL 1 TIME EACH DAY AT THE SAME TIME 16 mL 5Active cefdinir (Omnicef) 300 MG capsule TAKE 1 CAPSULE BY MOUTH TWICE A DAY FOR 1 WEEK THEN 1 CAPSULE ONCE A DAY FOR 2 [id number] morphine CR (MS Contin) 15 MG 12 hr tablet Take 15 mg by mouth in the morning and 15 mg before bedtime.5Active simvastatin (Zocor) 20 MG tablet Indications:Hyperlipidemia, group [...] by mouth every 8 (eight) hours if zmbqco2707/28/2025tive predniSONE (Deltasone) 20 MG tablet Indications:COPD with acute exacerbation (HCC)Take two tablets (40 mg) daily for five days, then take one tablet (20 mg) daily for five days. Take with food. 15 tablet 08/22/2025tive metFORMIN XR (Glucophage-XR) 500 MG 24 hr tablet Indications:Diabetes mellitus without complication (HCC)TAKE 1 TABLET BY MOUTH EVERY DAY 90 tablet 09/06/2025tive Ventolin HFA 108 (90 Base) MCG/ACT inhaler 09/05/2025tive amLODIPine (Norvasc) 2.5 MG tablet Take 2.5 mg by mouth Daily08/30/2025tive busPIRone (Buspar) 10 MG tablet Take 10 mg by mouth in the morning and 10 mg before bedtime.08/30/2025tive nystatin (Mycostatin) 657472 UNIT/ML suspension Take 500,000 Units by mouth09/04/2025tive traZODone (Desyrel) 50 MG tablet 09/06/2025tive ipratropium-albuterol (Duo-Neb) 0.5-2.5 mg/3 mL nebulizer solution Indications:COPD with acute exacerbation (HCC)Take 3 mL by nebulization every 6 (six) hours 1080 mL ctive Bykhlea-Lxqbadfqnhh-Hxnaaevzha (Breztri Aerosphere) 160-9-4.8 MCG/ACT aerosol Indications:COPD with acute exacerbation (HCC)Inhale 2 puffs in the morning and 2 puffs before bedtime. 10.7 g 5Active Ukwsgtq-Xhwdmomzsfz-Fnlehjnwip (Breztri Aerosphere) 160-9-4.8 MCG/ACT aerosol Inhale 2 puffs in the morning and 2 puffs before bedtime.08/31/2025Discontinued (Reorder) metFORMIN XR (Glucophage-XR) 500 MG 24 hr tablet Indications:Diabetes mellitus without complication (HCC)Take 1 tablet (500 mg) by mouth Daily 90 tablet Discontinued carvedilol (Coreg) 12.5 MG tablet Indications:Hypertension, unspecified typeTake 1 tablet (12.5 mg) by mouth in the morning and 1 tablet (12.5 mg) in the evening. Take with meals. 180 tablet /12/2024Discontinued(Therapy completed) fosfomycin (Monurol) 3 g packet MIX 1 PACKET INTO LIQUID AND TAKE BY MOUTH ONCE EVERY 5 DAYS Discontinued(Therapy completed) albuterol (2.5 MG/3ML) 0.083% nebulizer solution Indications:Chronic obstructive pulmonary disease, unspecified COPD type (HCC) Take 3 mL (2.5 mg) by nebulization every 6 (six) hours if needed for wheezing 75 mL Discontinued guaiFENesin (Mucinex) 600 MG 12 hr tablet Indications:COPD with acute exacerbation (HCC)Take 1 tablet (600 mg) by mouth in the morning and 1 tablet (600 mg) before bedtime. Do all this for 14 days. Do not crush, chew, or split. 28 tablet Discontinued(Therapy completed) ipratropium-albuterol (Duo-Neb) 0.5-2.5 mg/3 mL nebulizer solution Indications:COPD with acute exacerbation (HCC)Take 3 mL by nebulization every 6 (six) hours 1080 mL Discontinued(Reorder) Ohtwtqw-Tdbokyqhyku-Kcxkerewen (Breztri Aerosphere) 160-9-4.8 MCG/ACT aerosol Indications:COPD with acute exacerbation (HCC)Inhale 2 puffs in the morning and 2 puffs before bedtime. 10.7 g /Discontinued(Reorder) benzonatate (Tessalon) 200 MG capsule Indications:COPD with acute exacerbation (HCC)Take 1 capsule (200 mg) by mouth 3 (three) times a day as needed for cough for up to 7 days Do not crush or chew. 21 capsule Expired Active Problems ProblemNoted DateDiagnosed DateIron deficiency ukxfme2909/06/2025Hypomagnesemia 09/06/2025ancer associated pain09/06/20254625Ygmgai22/05/2025Gross hematuria 07/07/2025History of kidney uhbvla2807/07/2025bnormal liver kixamnytuj23/11/2025 Hepatocellular zflmolsed50/11/2025Liver ieviob8601/10/2025leeding hemorrhoids 08/25/20244401Ozqsxjfvatw57/24/1011Hxmlisdsnmnxhtks01/24/2024bnormal CXR (chest x-ray)08/10/2024Spontaneous bacterial kjmxtxkgiou79/09/2024aroxysmal atrial xigwnrcoxkoh80/19/2024djustment disorder with mixed anxiety and depressed mood 04/25/2024History of tobacco abuse04/25/2024hronic obstructive pulmonary ynurpru7105/20/2023 Assessment & Plan (03/01/2025 2:47 PM EDT): Lungs around baseline on PE today, continue current tx regimen, refill albuterol nebulizer solution Orders: albuterol (2.5 MG/3ML) 0.083% nebulizer solution; Take 3 mL (2.5 mg) by nebulization every 6 (six) hours if needed for wheezing Bujhwoeirp82/19/4323GU2 (diabetes mellitus, type 2)05/20/2023Essential uwfnqwdlvkgk42/19/5188Oyhsrbuhchgp76/19/2023Hyperlipidemia, group D005/20/2023 Nieplaztssccsskcbinje47/19/2023Immunodeficiency mszeqeqy52/06/2021Multiple myeloma not having achieved ydkrakglz05/08/2020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)07/11/2019Primary localized osteoarthrosis of ankle and foot06/01/2019Thoracic aortic aneurysm without kpqijzx6204/15/2019 Hemorrhoids, umwcsijssjc78/17/2019GERD (gastroesophageal reflux disease) 04/07/2018 Assessment & Plan [...] mouth Daily Do not crush or chew. Cjujzlndjbwv66/11/2018Morbid fqzxxuo9911/11/2017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Vitamin D ppjidoswwm95/14/2006 Resolved Problems ProblemNoted DateDiagnosed DateResolved VxikSeexoboqyzsjzd90/11/202507/14/2025 Acute metabolic gihybxzyiyxqfr08acteremia Rhinovirus jcrfevriq43Septic shockHistory of COVID-19004/25/Maxillary sinusitis, ydduhpj72/ Renal hjuwdvfx93/04/2023Malignant immunoproliferative disease MI 30.0-30.9,adult04/20/Thoracic ascending aortic vyujsqtd07Smoldering lpbcmux58H/O abdominal xptbqcxvwcua05isorder of nervous system due to type 2 diabetes mvoyfmzx95llergic klevqhyj19 Izrgfvozcohmrs77therosclerosis of aorta Aneurysm of infrarenal abdominal aortahronic pain syndrome 3Primary rdckvxup87Leukopenia02/25/2017 07/08/2023irrhosis of liver5896Vvsdzcvgkjfrratj01/30/2014 07/08/2023Sleep apnea Encounters DateTypeDepartmentCare ZgmkZaylgxqptfw34/24/2025Patient Outreach [facility] [address] [place] [address] Sima Paul, LES 09/20/2025[facility] [address], [place] [address] [place] [address] Power Swain DO Med Ylaulv5809/20/2025bstract [facility] [address], [address] [place] [address] Power Swain DO 09/19/2025External Result Encounter [facility] External Department Unsolicited Fabiola Marinelli MD 09/19/2025External Result Encounter [facility] External Department Unsolicited Fabiola Marinelli MD 09/19/2025Patient Outreach [facility] [address] [place] [address] Sima Paul RN 09/18/2025External Result Encounter [facility] External Department Unsolicited Fabiola Marinelli MD 09/12/2025Patient Outreach [facility] [address] [place] [address] Sima Paul RN 09/12/2025External Result Encounter [facility] External Department Unsolicited Fabiola Marinelli MD 09/12/2025External Result Encounter [facility] External Department Unsolicited Fabiola Marinelli MD 2025 10:00 AM ESTOffice Visit [facility] [address], [address] [place] [address] Power Swain DO COPD with acute exacerbation (HCC) (Primary Dx); Seasonal allergic rhinitis due to pollen; Localized swelling of both lower legs2025bstract [facility] [address], [address] [place] [address] Power Swain DO 09/06/2025External Result Encounter [facility] External Department Unsolicited Fabiola Marinelli MD 09/06/2025External Result Encounter [facility] External Department Unsolicited Fabiola Marinelli MD 09/06/2025External Result Encounter [facility] External Department Unsolicited Fabiola Marinelli MD 09/06/2025Patient Outreach [facility] [address] [place] [address] Sima Paul, LES 09/06/2025External Result Encounter [facility] External Department Unsolicited Fabiola Marinelli MD 09/06/2025External Result Encounter [facility] Unsolicited Fabiola Marinelli MD 09/06/2025Refill [facility] [address] [place] [place] [address] Power Swain DO Diabetes mellitus without complication (HCC)09/04/2025Refill [facility] [address] [place] [address] [place] [address] Power Swain DO COPD with acute exacerbation (HCC)09/04/2025Patient Outreach [facility] [address] [place] [address] Sima Paul, LES 09/02/2025Refill [facility] [address] [place] [address] Power Swain DO Hypertension, unspecified type08/31/2025Refill [facility] [address] [place] [address] Power Swain DO COPD with acute exacerbation (HCC)08/30/2025Telephone [facility] [address] [place] [address] Polina Ferrari MA 08/30/2025Telephone [facility] [address] [place] [address] Power Swain, DO 08/29/2025bstract [facility] [address] [place] [address] Power Swain, DO 08/29/2025Telephone [facility] [address] [place] [address] Power Swain, DO 08/28/2025bstract [facility] [address] [place] [address] Power Swain, DO 08/28/2025bstract [facility] [address] [place] [address] Power Swain, DO 08/28/2025Telephone [facility] [address] [place] [address] Power Swain, DO 08/28/2025Patient Outreach [facility] [address] [place] [address] FadiFanny LPN 08/28/2025bstract [facility] [address] [place] [address] Power Swain, DO 08/28/2025Telephone [facility] [address] [place] [address] Power Swain, DO 08/24/2025Telephone [facility] [address] [place] [address] Power Swain, 08/23/2025Results Follow-Up [facility] [address] [place] [address] Power Swain, DO POCT rapid strep A manually resulted, PNEUMONIA (HTRX)08/23/2025bstract [facility] [address] [place] [address] Power Swain DO 08/22/2025 2:20 PM EDTFollow-Up [facility] [address] [place] [address] Power Swain, COPD with acute exacerbation (HCC) (Primary Dx); Pharyngitis, unspecified /20/2025Telephone [facility] [address] [place] [address] Polina Ferrari MA 08/18/2025bstract [facility] [address] [place] [address] Power Swain DO 08/16/2025External Result Encounter [facility] External Department Unsolicited Fabiola Marinelli MD 08/16/2025External Result Encounter [facility] External Department Unsolicited Fabiola Marinelli MD 08/16/2025External Result Encounter [facility] External Department Unsolicited Fabiola Marinelli MD 08/14/2025bstract [facility] [address] [place] [address] Power Swain DO 08/11/2025bstract [facility] [address] [place] [address] Power Swain DO 08/11/2025Refill [facility] [address] [place] [address] Polina Ferrari MA Hyperlipidemia, group D; Gastroesophageal reflux disease, unspecified whether esophagitis present 08/09/2025bstract [facility] [address] [place] [address] Power Swain, 08/09/2025External Result Encounter [facility] External Department Unsolicited Fabiola Marinelli MD 08/09/2025External Result Encounter [facility] External Department Unsolicited Fabiola Marinelli MD 08/04/2025Patient Outreach [facility] [place] [address] [place] [address] Sima Paul RN 08/04/2025Refill [facility] [address] [place] [address] Power Swain, Chronic obstructive pulmonary disease, unspecified COPD type (HCC)08/04/2025 Abstract [facility] [address] [place] [address] Power Swain, 08/02/2025External Result Encounter [facility] External Department Unsolicited Fabiola Marinelli MD 08/02/2025External Result Encounter [facility] External Department Unsolicited Fabiola Marinelli MD 08/02/2025External Result Encounter [facility] External Department Unsolicited Fabiola Marinelli MD 08/02/2025External Result Encounter [facility] External Department Unsolicited Fabiola Marinelli MD 08/02/2025External Result Encounter [facility] External Department Unsolicited Fabiola Marinelli MD 08/02/2025bstract [facility] [address] [place] [address] Power Swain, 07/21/2025bstract [facility] [address] [place] [address] Power Swain, 07/21/2025Patient Outreach [facility] [address] [place] [address] Sima Paul, LES 07/20/2025bstract [facility] [address] [address] [place] [address] Power Swain DO 07/19/2025External Result Encounter [facility] External Department Unsolicited Fabiola Marinelli MD 07/19/2025External Result Encounter [facility] External Department Unsolicited Fabiola Marinelli MD 07/18/2025Refill [facility] [address] [place] [address] Power Swain, Seasonal allergic rhinitis due to kqrtvu7607/12/2025External Result Encounter [facility] External Department Unsolicited Fabiola Marinelli MD 07/12/2025External Result Encounter [facility] External Department Unsolicited Fabiola Marinelli MD 07/12/2025External Result Encounter [facility] External Department Unsolicited Fabiola Marinelli MD 07/07/2025Patient Outreach [facility] [address] [place] [address] Sima Paul, LES 07/07/2025Telephone [facility] [address] [place] [address] Polina Ferrari MA Med Prpkhr6107/05/2025External Result Encounter [facility] External Department Unsolicited Fabiola Marinelli MD 07/05/2025External Result Encounter [facility] External Department Unsolicited Fabiola Marinelli MD from Last 3 Months Immunizations ImmunizationAdministration DatesNext DueInfluenza, High Dose Seasonal, Preservative Free10/18/2024Influenza, injectable, quadrivalent, preservative free09/12/2019,10/14/2018Influenza, seasonal, ebgifdzbik59/14/2015Influenza, seasonal, intradermal, preservative free10/05/2017Pneumococcal Conjugate PCV 13 07/16/2015Pneumococcal Conjugate PCV (Deferred: Patient Refused) Pneumococcal Polysaccharide UDCS000012/06/2016RSV, recombinant, protein subunit RSVpreF, adjuvant reconstitu, 120mcg/0.5mL, PF (Arexvy)10/18/2024 Family History Medical HistoryRelationNameCommentsLung cancerBrotherross smithdied 62No Known ProblemsDaughterHeart diseaseFatherrobert smithHypertensionFatherrobert king 74Prostate cancerFatherrobert smithColon cancerMotherevelyn smithHeart diseaseMotherevelyn smithHypertensionMotherevelyn smithdied 85CancerSibling Breast cancerSisterelsiedied 49HypertensionSonRelationNameStatusCommentsBrother coral cadyto5WdstmpyfFotnxo8Msjxkqvmbwzf smithDeceasedMotherevelyn smithDeceased EykzyKqjadtRnoirxvyStezwdtLldhitqwrlaRedcbqhla5LxrZqcwbu3 Social History Tobacco UseTypesPacks/DayYears UsedDateSmoking Tobacco: FormerCigarettes [...] drinks on one occasion?Never06/15/2025PHQ-2AnswerDate RecordedPatient Health Questionnaire-2 Wojyj18911/11/2024CommentsNoSex and Gender InformationValueDate Recorded Sex Assigned at BirthNot on fileLegal JulFndnrp73/15/2023 6:38 PM EDTGender IdentityNot on fileSexual OrientationNot on fileOccupationIndustryJob Start Date Job End DateRetiredNot on fileNot on fileNot on file Last Filed Vital Signs Vital SignReadingTime TakenCommentsBlood Izavntci977/6809/11/2025 10:06 AM EST Arldx909109/11/2025 10:06 AM VQJCyecaqkbbal12.5 ??C (97.7 ??F)2025 10:06 AM ESTRespiratory Qtxy162911/11/2024 10:06 AM ESTOxygen Lzewuhxfbe90%2025 10:06 AM ESTInhaled Oxygen Concentration--Vtqmtl10.9 kg (196 lb)2025 10:06 AM FEDIjrywq122 cm (5' 3 )2025 10:06 AM ESTBody Mass Index34.7209/11/2025 10:06 AM EST Plan of Treatment DateTypeDepartmentCare Team (Latest Contact Info)Grzcsmnppxo94/08/2025 9:40 AM ESTOffice Visit [facility] [place] [facility] [address] [place] [address] [facility], [address] [place] [address] Health MaintenanceDue DateLast DoneCommentsCT Uwumqljskmos1957FIT-DNA 1957FIT1957FOBT1955 5761Ohcmculpjrmxa1957Pneumococcal Vaccine: 65+ Years (3 of 3 - PCV20 or PCV21)/01/2017, 07/16/2015 COVID-19 Vaccine (4 - season)/, 06/19/2021, 05/28/2021Influenza Vaccine (#1)/, 09/12/2019, 10/14/2018, Additional history existsDiabetes: Urine Protein Fkbgzqphw61, 11/30/2023, 03/04/2021, Additional history existsDiabetes: Hemoglobin A1C /, 12/20/2024, 06/20/2024, Additional history existsMedicare Annual Wellness (AWV)/, 11/30/2023, 12/01/2022, Additional history kzhxgdCkkmynrve19, 10/16/2022, 04/06/2020, Additional history existsDiabetes: Retinopathy Eclwoqkly56, 07/01/2024, 05/06/2022, Additional history bnqwazKdlplayrgje19/14/202811/, 05/01/2015, 05/01/2015, Additional history existsColorectal Cancer Screening 09/15/2028 Procedures Procedure NamePriorityDate/TimeAssociated DiagnosisCommentsSCAN AND CBCRoutine 09/19/2025 10:00 AM EST VMYOBYSLQhftsnw32/18/2025 10:00 AM EST IRON AND TOTAL IRON BINDING ZCYRLTALXopnxrv11/18/2025 10:00 AM EST COMPREHENSIVE METABOLIC QSYUJWutduep40/18/2025 10:00 AM EST MR ABDOMEN W AND WO VKJOXECL88/17/2025 10:03 AM EST SCAN AND BLYDXXO0109/12/2025 9:25 AM EST COMPREHENSIVE METABOLIC IDVFTBOMG24/11/2025 9:25 AM EST IMMUNOFIXATION,SERUM ([facility])Ivjoerl8809/06/2025 8:57 AM EST FREE K+L LT CHAINS, QN, SSTAT111/06/2024 8:57 AM EST PROTEIN ELECTROPHORESIS, LDLBJEFDC67/05/2025 8:57 AM EST IMMUNOGLOBULINS A/G/M, QN, XDSFRAW67/05/2025 8:57 AM EST ALPHA FETOPROTEIN, TUMOR SZCVOBKVMH11/05/2025 8:57 AM EST DIFF AND QZYYRTV3909/06/2025 8:57 AM EST COMPREHENSIVE METABOLIC BOUEHPDTE77/05/2025 8:57 AM EST POCT RAPID STREP JFxsjxce92/21/2025 3:10 PM EDT COPD with acute exacerbation (HCC) PNEUMONIA (HTRX)Fxtbkjz3108/22/2025 3:00 PM EDT COPD with acute exacerbation (HCC) Pharyngitis, unspecified etiology SSTWZJSTJRFRI37/15/2025 10:32 AM EDT PGPMMKXNJWDX05/15/2025 8:14 AM EDT SCAN AND GODHPSJ8608/16/2025 8:14 AM EDT IRON AND TOTAL IRON BINDING KVRVZRSARWCH23/15/2025 8:14 AM EDT COMPREHENSIVE METABOLIC SINHWWKOD87/15/2025 8:14 AM EDT SCAN AND KKBRLRC2108/09/2025 8:25 AM EDT COMPREHENSIVE METABOLIC TCFWURswagmz82/08/2025 8:25 AM EDT JFAJPQNPJM99/01/2025 10:00 AM EDT IMMUNOGLOBULINS A/E/G/M, QN ([facility])STAT1 10:00 AM EDT FHLFIDCENVIIRWaevswm95/01/2025 10:00 AM EDT SCAN AND MUAByekadr85/01/2025 10:00 AM EDT VITAMIN J78Sefacrh82/01/2025 10:00 AM EDT FOLATE, ZTOKBXcvufzn00/01/2025 10:00 AM EDT EIPBVDHYHcgyyxb31/01/2025 10:00 AM EDT IRON AND TOTAL IRON BINDING UBBJBYEPUrkbxiu07/01/2025 10:00 AM EDT COMPREHENSIVE METABOLIC JEJNQLbweqid99/01/2025 10:00 AM EDT SCAN AND HBAAUUZ9207/19/2025 9:45 AM EDT COMPREHENSIVE METABOLIC HYNVMUBVV17/17/2025 9:45 AM EDT IMMUNOFIXATION,SERUM ([facility])Ilnyqjb2707/12/2025 8:06 AM EDT PROTEIN ELECTROPHORESIS, UJDMTCkqobmu27/10/2025 8:06 AM EDT ALPHA FETOPROTEIN, TUMOR XSYSZWCzyrlsj53/10/2025 8:06 AM EDT DIFF AND BRFOBPW5907/12/2025 8:06 AM EDT COMPREHENSIVE METABOLIC WYNGNUDDB44/10/2025 8:06 AM EDT SCAN AND TQIOFPC8507/05/2025 10:07 AM EDT COMPREHENSIVE METABOLIC TXAWSCGVT73/03/2025 10:07 AM EDT DIABETIC RETINOPATHY SCREENING - OU - BOTH YGUCPiiwhmv01/05/2025 10:06 AM EDT HEMOGLOBIN D0EMudxizr64/21/2025 9:45 AM EDT Type 2 diabetes mellitus without complication, without long-term current use of insulin (HCC) MICROALBUMIN / CREATININE URINE EIHZCSytjegt85/ 12:23 PM EDT Essential hypertension Type 2 diabetes mellitus with other specified complication, unspecified whether half-way insulin use (HCC) MM TOMOSYNTHESIS SCREENING BI08/18/2024 3:19 PM EDT ZKFNDYJUZABTxzauxl51/14/2018 12:00 PM EST from Last 3 Months or Most Recently Relevant to Health Maintenance Results * (ABNORMAL) SCAN AND CBC (09/19/2025 10:00 AM EST) Only the most recent of7 resultswithin the time period is included. ComponentValueRef RangeTest MethodAnalysis TimePerformed AtPathologist Signature WBC1.2(L)3.8 - 11.6 [CFU]/mL09/19/2025 10:49 AM [facility] CtrUNCORRECTED WHITE BLOOD COUNT1.2(L)3.8 - 11.6 10*3/uL09/19/2025 10:49 AM [facility] CtrRBC3.25(L)3.60 - 5.00 10*6/uL09/19/2025 10:49 AM [facility] XlqKQSCKENGYM00.0(L)11.8 - 15.4 g/dL09/19/2025 10:49 AM [facility] YvfRMVKBURYPS28.8(L)34.0 - 46.4 % 09/19/2025 10:49 AM [facility] YawFIS44.080 - 100 fL 09/19/2025 10:49 AM [facility] QefLCI48.824.7 - 34.3 pg 09/19/2025 10:49 AM [facility] GorBOXT39.532.0 - 35.0 g/dL 09/19/2025 10:49 AM [facility] CtrRED CELL DISTRIBUTION WIDTH, RDW20.1(H)11.9 - 15.3 %09/19/2025 10:49 AM [facility] CtrPLATELET COUNT45(L)150 - 450 10*3/uL09/19/2025 10:49 AM [facility] CtrMEAN PLATELET VOLUME, MPV8.66.3 - 10.7 fL09/19/2025 10:49 AM [facility] CtrNEUTROPHILS, %53.9. %09/19/2025 11:40 AM [facility] CtrLYMPHOCYTES, %23.1. %09/19/2025 11:40 AM [facility] CtrMONOCYTE/MACROPHAGE, %16.2. %09/19/2025 11:40 AM [facility] CtrEOSINOPHILS, %5.4. %09/19/2025 11:40 AM [facility] CtrBASOPHILS, %1.4. %09/19/2025 11:40 AM [facility] CtrNRBC0.40 - 0.5 /100{WBC}09/19/2025 11:40 AM [facility] CtrNEUTROPHILS0.7(L)1.8 - 7.7 10*3/uL09/19/2025 11:40 AM [facility] CtrLYMPHOCYTES0.3(L)1.00 - 4.8 10*3/uL09/19/2025 11:40 AM [facility] CtrMONOCYTES0.20.0 - 0.8 10*3/uL 09/19/2025 11:40 AM [facility] CtrEOSINOPHILS0.10.0 - 0.45 10*3/uL09/19/2025 11:40 AM [facility] CtrBASOPHILS0.00.0 - 0.2 10*3/uL09/19/2025 11:40 AM [facility] CtrANISOCYTOSIS Zpyrjh2509/19/2025 11:40 AM [facility] CtrOVALOCYTESSlight 09/19/2025 11:40 AM [facility] CtrPLATELET ESTIMATEDecreased Hmgnmk9809/19/2025 11:40 AM [facility] CtrPLATELET MORPHOLOGY YeapilHqsjit67/18/2025 11:40 AM [facility] CtrSpecimen (Source)Anatomical Location / LateralityCollection Method / VolumeCollection TimeReceived TimeBlood (Blood)09/19/2025 10:00 AM EST09/19/2025 10:19 AM EST Narrative Authorizing ProviderResult TypeResult StatusFabiola Marinelli MDLAB BLOOD ORDERABLES Final ResultPerforming OrganizationAddressCity/State/ZIP CodePhone Number [address] Streetpatricia [place] [address], [facility] [address] [place] [address] * (ABNORMAL) Iron and TIBC (09/19/2025 10:00 AM EST) Only the most recent of3 resultswithin the time period is included. ComponentValueRef RangeTest MethodAnalysis TimePerformed AtPathologist Signature IGAI2726 - 212 ug/dL09/19/2025 11:02 AM [facility] CtrTOTAL IRON BINDING ERWTDDNX445(L)255 - 450 ug/dL09/19/2025 11:02 AM [facility] Ctr% IRON XQWHYNZKJY89.320 - 50 %09/19/2025 11:02 AM [facility] CmrOBREQSKJSFC398(L)203 - 362 mg/dL09/19/2025 11:02 AM [facility] CtrSpecimen (Source)Anatomical Location / LateralityCollection Method / VolumeCollection TimeReceived TimeOtherTopography unknown / Ezwfapd1309/19/2025 10:00 AM EST09/19/2025 10:19 AM EST Narrative Authorizing ProviderResult TypeResult StatusFabiola Marinelli MDLAB BLOOD ORDERABLES Final ResultPerforming OrganizationAddressCity/State/ZIP CodePhone Number [address] [place] [address], [facility] [address] [place] [address] * Ferritin (09/19/2025 10:00 AM EST) Only the most recent of3 resultswithin the time period is included. ComponentValueRef RangeTest MethodAnalysis TimePerformed AtPathologist Signature FGUEFGJX196.411.0 - 306.8 ng/mL09/19/2025 11:21 AM [facility] CtrSpecimen (Source)Anatomical Location / LateralityCollection Method / Volume Collection TimeReceived TimeOtherTopography unknown / Jwelfce0709/19/2025 10:00 AM EST09/19/2025 10:19 AM EST Narrative Authorizing ProviderResult TypeResult StatusFabiola Marinelli MDLAB BLOOD ORDERABLES Final ResultPerforming OrganizationAddressCity/State/ZIP CodePhone Number [facility] [address] [place] [address], [facility] [address] [place] [address] * (ABNORMAL) Comprehensive metabolic panel (09/19/2025 10:00 AM EST) Only the most recent of9 resultswithin the time period is included. ComponentValueRef RangeTest MethodAnalysis TimePerformed AtPathologist Signature Mffygov720(H)70 - 100 mg/dL09/19/2025 11:02 AM [facility]tr Comment: Random Glucose Reference Range is dependent on time and content of last meal. Glucose of more than 200 mg/dL in a nonstressed, ambulatory subject supports the diagnosis of Diabetes Mellitus. ADA recommended reference range PQX893 - 25 mg/dL09/19/2025 11:02 AM [facility] CtrCREATININE 0.870.60 - 1.20 mg/dL09/19/2025 11:02 AM [facility] Ctr ESTIMATED GFR>60. 11:02 AM [facility] IseOfewzk396 (L)136 - 145 mmol/L111/19/2024 11:02 AM [facility] Ctr Potassium, Bld4.03.5 - 5.1 mmol/L111/19/2024 11:02 AM [facility] WdkMmixbnyv02954 - 107 mmol/L111/19/2024 11:02 AM [facility] CtrCarbon Cxyxblo17.021.0 - 31.0 mmol/L111/19/2024 11:02 AM [facility] CtrAnion Gap9.06.0 - 15. 11:02 AM [facility] CtrCalcium7.7(L)8.6 - 10.3 mg/dL09/19/2025 11:02 AM [facility] CtrTOTAL PROTEIN5.5(L)6.4 - 8.9 g/dL09/19/2025 11:02 AM [facility] CtrALBUMIN LEVEL3.3(L)3.5 - 5.7 g/dL09/19/2025 11:02 AM [facility] CtrGLOBULIN2.2g/dL09/19/2025 11:02 AM [facility] CtrALBUMIN/GLOBULIN RATIO1.511 11:02 AM [facility] CtrBILIRUBIN,TOTAL1.3(H)0.3 - 1.0 mg/dL09/19/2025 11:02 AM [facility] CtrComment: Samples from patients who have taken Naproxen have shown spurious elevation in Total Bilirubin levels. ??A metabolite of Naproxen, O-desmethylnaproxen, has been shown to interfere with the Jendrassik-Grof method for measuring Total Bilirubin. ASPARTATE AMINO LEWZRNRBOBU7152 - 39 U/L111/19/2024 11:02 AM [facility] CtrALANINE ZFINPBATOUSPRGRN550 - 52 U/L111/19/2024 11:02 AM [facility] CtrALKALINE QDYYNUYJDGB675(H)34 - 104 U/L111/19/2024 11:02 AM [facility] CtrCREATININE CLR CALC YCPAQHBB13.99 09/19/2025 11:02 AM [facility] CtrSpecimen (Source)Anatomical Location / LateralityCollection Method / VolumeCollection TimeReceived Time OtherTopography unknown / Gfpivrl3909/19/2025 10:00 AM EST09/19/2025 10:19 AM EST Narrative Authorizing ProviderResult TypeResult StatusFabiola Marinelli MDLAB BLOOD ORDERABLES Final ResultPerforming OrganizationAddressCity/State/ZIP CodePhone Number [facility] [address] [place] [address], [facility] [address] [place] [address] * MR abdomen w and wo contrast (09/18/2025 10:03 AM EST)Anatomical Region LateralityModalityAbdomenMagnetic ResonanceSpecimen (Source)Anatomical Location / LateralityCollection Method / VolumeCollection TimeReceived Time 09/18/2025 10:03 AM EST Impressions 09/18/2025 10:10 AM EST POSTABLATION CHANGES ARE NOW SEEN INVOLVING SEGMENT 6 AND 7 OF THE LIVER . ??NO MRI EVIDENCE OF RESIDUAL TUMOR OR PROGRESSION OF DISEASE. ? CIRRHOTIC LIVER WITH SPLENOMEGALY.. ? TRACE ASCITES. ? Impression dictated by: Carrol Pickard Jr..O. ??09/18/2025 10:08 AM ? Dictation Location: RADIO-PC-22 ? Transcribed By: ? PWS ?09/18/25 1008 ? Dictated By: ?Carroll Sparrow Jr, DO ?09/18/25 1003 ? Signed By: <Electronically signed by Carroll Sparrow Jr, DO in OV> ?09/18/25 1008 Narrative 09/18/2025 10:10 AM [facility] ?[facility] ?[address] ? [place] [address] ? MRI Report ? Signed ? Patient: Mojgan Snider S ?MR#: [id number] ?? [id number] ? : 1955 ?Acct:[id number] ? Age/Sex: 70 / F ?ADM Date: 09/18/25 ? Loc: XT ?Room: ?Type: REG RCR ?? Attending Dr: Fabiola Marinelli MD ?? Copies to: Fabiola Marinelli MD ? Ordering Provider: Fabiola Marinelli MD ?? Date of Service: 09/18/25 ?? MR/MR abdomen wo/w con: follow up microwave ablation ? MRI OF THE ABDOMEN WITH AND WITHOUT CONTRAST: ? CLINICAL HISTORY: Abnormal MRI ? COMPARISON: MRI abdomen 04/17/2025. ? TECHNIQUE: Multisequence, multiplanar imaging of the abdomen was obtained before and after the use of IV contrast. ? FINDINGS: ? Liver appears cirrhotic in morphology without evidence of intrahepatic biliary ductal dilatation. ?? Previously identified suspicious lesions involving segment 6 now appears to have been ablated without residual abnormal enhancement. ??Postablation changes are also seen involving segment 7 of the liver. ??No new areas of abnormal arterial enhancement with washout to suggest progression of disease. ??Hepatic and portal veins appear patent. ? Gallbladder has been removed. ??No CBD dilatation. ??Splenomegaly measuring 14 cm. ??Pancreas appears unremarkable. ??Adrenal glands appear unremarkable. ??No enhancing renal mass or hydronephrosis. ?? Abdominal aorta appears normal in caliber. ??No bulky lymphadenopathy. ??Trace ascites. ??Duodenal diverticulum. ??No pleural effusion. ? MR/MR abdomen wo/w con ?? Procedure Note Carroll Sparrow Jr., DO - 09/18/[address] [facility] [address] [place] [address] MRI Report Signed Patient: Mojgan Snider SMR#: [id number] : 7Acct:[id number] Age/Sex: 70 / FADM Date: 09/18/25 Loc: Room:Type: [facility] RCR Attending Dr: Fabiola Marinelli MD Copies to: Fabiola Marinelli MD Ordering Provider: Fabiola Marinelli MD Date of Service: 09/18/25 MR/MR abdomen wo/w con: follow up microwaveablation MRI OF THE ABDOMEN WITH AND WITHOUT CONTRAST: CLINICAL HISTORY: Abnormal MRI COMPARISON: MRI abdomen 04/17/2025. TECHNIQUE: Multisequence, multiplanar imaging of the abdomen was obtainedbefore and after the use of IV contrast. FINDINGS: Liver appears cirrhotic in morphology without evidence of intrahepaticbiliary ductal dilatation. Previously identified suspicious lesions involving segment 6 now appearsto have been ablated without residual abnormal enhancement. Postablation changes are also seen involving segment 7 of the liver. No new areas of abnormal arterial enhancement with washout tosuggest progression of disease. Hepatic and portal veins appear patent. Gallbladder has been removed. No CBD dilatation. Splenomegaly fuxmiblff20 cm. Pancreas appears unremarkable. Adrenal glands appear unremarkable. No enhancing renalmass or hydronephrosis. Abdominal aorta appears normal in caliber. No bulky lymphadenopathy.Trace ascites. Duodenal diverticulum. No pleural effusion. MR/MR abdomen wo/w con IMPRESSION: POSTABLATION CHANGES ARE NOW SEEN INVOLVING SEGMENT 6 AND 7 OF THE LIVER .NO MRI EVIDENCE OF RESIDUAL TUMOR OR PROGRESSION OF DISEASE. CIRRHOTIC LIVER WITH SPLENOMEGALY.. TRACE ASCITES. Impression dictated by: Carroll Sparrow Jr., D.O. 09/18/2025 10:08 AM Dictation Location: [place] [address] Transcribed By: [facility] 09/18/25 1008 Dictated By: Carroll Sparrow Jr, DO 09/18/25 1003 Signed By: <Electronically signed by Carroll Sparrow Jr, DO inOV> 09/18/25 1008 Authorizing ProviderResult TypeResult StatusFabiola Marinelli MDIM MRI PROCEDURES Final Result * FREE K+L LT CHAINS, QN, S (09/06/2025 8:57 AM EST)ComponentValueRef RangeTest MethodAnalysis TimePerformed AtPathologist SignatureFREE KAPPA LIGHT CHAINS, S 0.73.3 - 19.4 mg/L111/07/2024 4:09 PM ESTFIRELANDSFREE LAMBDA LIGHT CHAINS, S 35.05.7 - 26.3 mg/L111/07/2024 4:09 PM ESTFIRELANDSKAPPA/LAMBDA RATIO, S0.02 0.26 - 1.6509/07/2025 4:09 PM ESTFIRELANDSComment: Performed at: ??CB - [facility] [address] ??[id number] Nurse Discharge Planner: Lang Knight PhD, Phone: ??[phone] Specimen (Source)Anatomical Location / LateralityCollection Method / Volume Collection TimeReceived TimeOtherTopography unknown / Vomstvw6509/06/2025 8:57 AM EST09/06/2025 9:06 AM EST Narrative Authorizing ProviderResult TypeResult StatusFabiola Marinelli MDLAB BLOOD ORDERABLES Final ResultPerforming OrganizationAddressCity/State/ZIP CodePhone Number [facility] [address] [place] [address], * IMMUNOGLOBULINS A/G/M, QN, SER (09/06/2025 8:57 AM EST)ComponentValueRef Range Test MethodAnalysis TimePerformed AtPathologist SignatureIMMUNOGLOBULIN G550 586 - 1,602 mg/dL09/07/2025 8:36 AM ESTFIRELANDSIMMUNOGLOBULIN A, SERUM<587 - 352 mg/dL09/07/2025 8:36 AM ESTFIRELANDSComment:Result confirmed on concentration.IMMUNOGLOBULIN M, SERUM<526 - 217 mg/dL09/07/2025 8:36 AM EST FIRELANDSComment: Result confirmed on concentration. Performed at: ?? - [facility] ??[id number] Nurse Discharge Planner: Lang Knight PhD, Phone: ??[phone] Specimen (Source)Anatomical Location / LateralityCollection Method / Volume Collection TimeReceived TimeOtherTopography unknown / Uoirtrm2209/06/2025 8:57 AM EST09/06/2025 9:06 AM EST Narrative Authorizing ProviderResult TypeResult StatusFabiola Marinelli MDLAB BLOOD ORDERABLES Final ResultPerforming OrganizationAddressCity/State/ZIP CodePhone Number [facility] [address] [facility] [place] [address], [place] * (ABNORMAL) DIFF AND CBC (09/06/2025 8:57 AM EST) Only the most recent of2 resultswithin the time period is included. ComponentValueRef RangeTest MethodAnalysis TimePerformed AtPathologist Signature WBC2.2(L)3.8 - 11.6 [CFU]/mL09/06/2025 9:59 AM [facility] UNCORRECTED WHITE BLOOD COUNT2.2(L)3.8 - 11.6 10*3/uL09/06/2025 9:59 AM [facility] CtrRBC3.16(L)3.60 - 5.00 10*6/uL09/06/2025 9:59 AM [facility] XjcLWDEDQHOQN66.4(L)11.8 - 15.4 g/dL09/06/2025 9:59 AM [facility] MlzKGNKURBPVL31.5(L)34.0 - 46.4 % 09/06/2025 9:59 AM [facility] VivYRN21.580 - 100 fL09/06/2025 9:59 AM [facility] FblJBS70.924.7 - 34.3 pg09/06/2025 9:59 AM [facility] JlqIXAR34.132.0 - 35.0 g/dL09/06/2025 9:59 AM [facility] CtrRED CELL DISTRIBUTION WIDTH, RDW18.3(H)11.9 - 15.3 %09/06/2025 9:59 AM [facility] CtrPLATELET COUNT38(LL) 150 - 450 10*3/uL09/06/2025 10:01 AM [facility] CtrComment: Critical value result called at 1000 on 09/06/25 MEAN PLATELET VOLUME, MPV8.96.3 - 10.7 fL09/06/2025 9:59 AM [facility] CtrSEGMENTED BVWLPMNFZCS66(H)50 - 70 %09/06/2025 9:59 AM [facility] CtrBAND NEUTROPHILS7(H)0 - 5 %09/06/2025 9:59 AM [facility] IiwWOEBHCIPJBC46(L)18 - 42 %09/06/2025 9:59 AM [facility] VutBMXKKDYPH56 - 11 %09/06/2025 9:59 AM [facility] FjzTECWUYJHSTKCBVmbgxq95/05/2025 9:59 AM [facility] QjlUGABVXTWZWIHLCKrglas73/05/2025 9:59 AM [facility] VpgVGVIZJLITJPVHrynid88/05/2025 9:59 AM [facility] BKYSDCWLOQNWFrnqxv55/05/2025 9:59 AM [facility] CtrTEAR DROP LZQHBDuvngl01/05/2025 9:59 AM [facility] CtrOVALOCYTESSlight 09/06/2025 9:59 AM [facility] CtrPLATELET ESTIMATEDecreased Tcyhky8209/06/2025 9:59 AM [facility] CtrGIANT PLATELET TALLY4 /100{WBC}09/06/2025 9:59 AM [facility] CtrPLATELET MORPHOLOGY JbopbgTkialc14/05/2025 9:59 AM [facility] CtrSpecimen (Source)Anatomical Location / LateralityCollection Method / VolumeCollection TimeReceived TimeBlood (Blood)09/06/2025 8:57 AM EST09/06/2025 9:06 AM EST Narrative Authorizing ProviderResult TypeResult StatusFabiola KIRKPATRICK BLOOD ORDERABLES Final ResultPerforming OrganizationAddressCity/State/ZIP CodePhone Number [address] [address], [facility] [address] [place] [address] * IMMUNOFIXATION,SERUM ([facility]) (09/06/2025 8:57 AM EST) Only the most recent of2 resultswithin the time period is included. ComponentValueRef RangeTest MethodAnalysis TimePerformed AtPathologist Signature IMMUNOFIXATION, SERUMComment.09/08/2025 12:36 PM ESTFIRELANDSComment:No monoclonality detected.IMMUNOGLOBULIN B317849 - 1,602 mg/dL09/08/2025 12:36 PM ESTFIRELANDSIMMUNOGLOBULIN A, SERUM<587 - 352 mg/dL09/08/2025 12:36 PM EST FIRELANDSComment:Result confirmed on concentration.IMMUNOGLOBULIN M, SERUM<526 - 217 mg/dL09/08/2025 12:36 PM ESTFIRELANDSComment: Result confirmed on concentration. Performed at: ??CB - [facility] [address] ??[id number] Nurse Discharge Planner: Lang Knight PhD, Phone: ??[phone] Specimen (Source)Anatomical Location / LateralityCollection Method / Volume Collection TimeReceived TimeOtherTopography unknown / Zbxcjwy4809/06/2025 8:57 AM EST09/06/2025 9:06 AM EST Narrative Authorizing ProviderResult TypeResult StatusFabiola KIRPKATRICK BLOOD ORDERABLES Final ResultPerforming OrganizationAddBradford Regional Medical Centerty/State/[facility] CodePhone Number [address] [address], * AFP tumor marker (09/06/2025 8:57 AM EST) Only the most recent of2 resultswithin the time period is included. ComponentValueRef RangeTest MethodAnalysis TimePerformed AtPathologist Signature AFP TUMOR MARKER, SERUM2.10.0 - 9.2 ng/mL09/07/2025 4:07 AM ESTFIRELANDSComment: [facility] Electrochemiluminescence Immunoassay (ECLIA) Values obtained with different assay methods or kits cannot be used interchangeably. ??Results cannot be interpreted as absolute evidence of the presence or absence of malignant disease. This test is not interpretable in females. Performed at: ?? - [facility] ??[id number] Nurse Discharge Planner: Lang Knight PhD, Phone: ??[phone] Specimen (Source)Anatomical Location / LateralityCollection Method / Volume Collection TimeReceived TimeOtherTopography unknown / Aquikjg1009/06/2025 8:57 AM EST09/06/2025 9:06 AM EST Narrative Authorizing ProviderResult TypeResult StatusFabiola [place] [facility]LLSW[facility] BLOOD ORDERABLES Final ResultPerforming OrganizationAddWashington Health System Greene/[facility] CodePhone Number [place] [phone], * Protein electrophoresis, serum (09/06/2025 8:57 AM EST) Only the most recent of2 resultswithin the time period is included. ComponentValueRef RangeTest MethodAnalysis TimePerformed AtPathologist Signature TOTAL PROTEIN, SERUM5.16.0 - 8.5 g/dL09/07/2025 3:08 PM ESTFIRELANDSALBUMIN, SERUM3.12.9 - 4.4 g/dL09/07/2025 3:08 PM OYSKSJDUPLVJFXSWZ-9-KNMBUXXY4.30.0 - 0.4 g/dL09/07/2025 3:08 PM YDNKQXLMUKCGONWFQ-1-HTQVEPBN4.50.4 - 1.0 g/dL 09/07/2025 3:08 PM ESTFIRELANDSBETA GLOBULIN0.80.7 - 1.3 g/dL09/07/2025 3:08 PM ESTFIRELANDSGAMMA GLOBULIN0.40.4 - 1.8 g/dL09/07/2025 3:08 PM ESTFIRELANDS M-SPIKENot ObservedNot Observed g/dL09/07/2025 3:08 PM ESTFIRELANDSGLOBULIN, TOTAL2.02.2 - 3.9 g/dL09/07/2025 3:08 PM ESTFIRELANDSA/G RATIO1.60.7 - 1.7 09/07/2025 3:08 PM ESTFIRELANDSSPE-NOTEComment.09/07/2025 3:08 PM ESTFIRELANDS Comment: Protein electrophoresis scan will follow via computer, mail, or technical rep delivery. Performed at: ?? - [facility] ??[id number] Nurse Discharge Planner: Lang Knight PhD, Phone: ??[phone] Specimen (Source)Anatomical Location / LateralityCollection Method / Volume Collection TimeReceived TimeOtherTopography unknown / Qsxunca7709/06/2025 8:57 AM EST09/06/2025 9:06 AM EST Narrative Authorizing ProviderResult TypeResult StatusFabiola Marinelli MDLAB BLOOD ORDERABLES Final ResultPerforming OrganizationAddressCity/State/[facility] CodePhone Number [address] * POCT rapid strep A manually resulted (08/22/2025 3:10 PM EDT)ComponentValueRef RangeTest MethodAnalysis TimePerformed AtPathologist SignatureRapid Strep A ScreenNegativeNegative, None DetectedSpecimen (Source)Anatomical Location / LateralityCollection Method / VolumeCollection TimeReceived QgcsAsfc34/21/2025 3:10 PM EDT Narrative Authorizing ProviderResult TypeResult StatusDaniel Brynn DOPOINT OF CARE TEST ENTER/EDIT ORDERABLESFinal Result * (ABNORMAL) PNEUMONIA (HTRX) (08/22/2025 3:00 PM EDT)ComponentValueRef Range Test MethodAnalysis TimePerformed AtPathologist SignatureSTREPTOCOCCUS PYOGENES (GROUP A STREP) (RESPIRATORY)019.961 - 24.689 ppm08/23/2025 6:49 AM EDTHealthTrackRx at LabPortSTREPTOCOCCUS PYOGENES (GROUP A STREP) (RESPIRATORY)Not Sdrfpnpd59.961 - 24.689 ppm08/23/2025 6:49 AM EDT [facility] at LabPortSTREPTOCOCCUS PNEUMONIAE (RESPIRATORY)019.961 - 24.689 ppm08/23/2025 6:49 AM EDTHealthTrackRx at LabPortSTREPTOCOCCUS PNEUMONIAE (RESPIRATORY)Not Dwumlqep18.961 - 24.689 ppm08/23/2025 6:49 AM EDT [facility] at LabPortSTREPTOCOCCUS AGALACTIAE (GROUP B STREP) (RESPIRATORY) 019.961 - 24.689 ppm08/23/2025 6:49 AM EDTHealthTrackRx at [facility] STREPTOCOCCUS AGALACTIAE (GROUP B STREP) (RESPIRATORY)Not Kenmryra74.961 - 24.689 ppm08/23/2025 6:49 AM EDTHealthTrackRx at LabPortSTAPHYLOCOCCUS AUREUS (RESPIRATORY)019.961 - 24.689 ppm08/23/2025 6:49 AM EDTHealthTrackRx at LabPortSTAPHYLOCOCCUS AUREUS (RESPIRATORY)Not Wokqoawm04.961 - 24.689 ppm 08/23/2025 6:49 AM EDTHealthTrackRx at LabPortSERRATIA MARCESCENS (RESPIRATORY)019.961 - 24.689 ppm08/23/2025 6:49 AM EDTHealthTrackRx at LabPortSERRATIA MARCESCENS (RESPIRATORY)Not Xmkzfhyf28.961 - 24.689 ppm 08/23/2025 6:49 AM EDTHealthTrackRx at LabPortRESPIRATORY SYNCYTIAL VIRUS (RESPIRATORY)023.000 - 31.953 ppm08/23/2025 6:49 AM EDTHealthTrackRx at LabPortRESPIRATORY SYNCYTIAL VIRUS (RESPIRATORY)Not Htczgmii80.000 - 31.953 ppm08/23/2025 6:49 AM EDTHealthTrackRx at LabPortPSEUDOMONAS AERUGINOSA (RESPIRATORY)31.113(A)19.961 - 24.689 ppm08/23/2025 6:49 AM EDTHealthTrackRx at LabPortPSEUDOMONAS AERUGINOSA (RESPIRATORY)Detected(A)19.961 - 24.689 ppm 08/23/2025 6:49 AM EDTHealthTrackRx at LabPortPROTEUS MIRABILIS, VULGARIS (RESPIRATORY)019.961 - 24.689 ppm08/23/2025 6:49 AM EDTHealthTrackRx at LabPortPROTEUS MIRABILIS, VULGARIS (RESPIRATORY)Not Nddkbimn42.961 - 24.689 ppm08/23/2025 6:49 AM EDTHealthTrackRx at LabPortPARAINFLUENZA VIRUS (TYPES 1, 2, 3 ,4) (RESPIRATORY)023.000 - 31.487 ppm08/23/2025 6:49 AM EDTHealthTrackRx at LabPortPARAINFLUENZA VIRUS (TYPES 1, 2, 3 ,4) (RESPIRATORY)Not Detected 23.000 - 31.487 ppm08/23/2025 6:49 AM EDTHealthTrackRx at LabPortMYCOPLASMA PNEUMONIAE (RESPIRATORY)019.961 - 24.689 ppm08/23/2025 6:49 AM EDT [facility] at LabPortMYCOPLASMA PNEUMONIAE (RESPIRATORY)Not Dvnmvxpg92.961 - 24.689 ppm08/23/2025 6:49 AM EDTHealthTrackRx at LabPortMORAXELLA CATARRHALIS (RESPIRATORY)019.961 - 24.689 ppm08/23/2025 6:49 AM EDT [facility] at LabPortMORAXELLA CATARRHALIS (RESPIRATORY)Not Gffxeaak88.961 - 24.689 ppm08/23/2025 6:49 AM EDTHealthTrackRx at LabPortLEGIONELLA PNEUMOPHILA (RESPIRATORY)019.961 - 24.689 ppm08/23/2025 6:49 AM EDT [facility] at LabPortLEGIONELLA PNEUMOPHILA (RESPIRATORY)Not Zpvdklgq67.961 - 24.689 ppm08/23/2025 6:49 AM EDTHealthTrackRx at LabPortKLEBSIELLA PNEUMONIAE, OXYTOCA (RESPIRATORY)019.961 - 24.689 ppm08/23/2025 6:49 AM EDT [facility] at LabPortKLEBSIELLA PNEUMONIAE, OXYTOCA (RESPIRATORY)Not Itfkyxas16.961 - 24.689 ppm08/23/2025 6:49 AM EDTHealth[facility]Rx at [facility] INFLUENZA VIRUS, A, B (RESPIRATORY)023.000 - 29.803 ppm08/23/2025 6:49 AM EDT [facility] HospitalINFLUENZA VIRUS, A, B (RESPIRATORY)Not Neviamjx90.000 - 29.803 ppm08/23/2025 6:49 AM EDTHealthTrackRx at [facility] METAPNEUMOVIRUS (RESPIRATORY)023.000 - 33.630 ppm08/23/2025 6:49 AM EDT [facility] METAPNEUMOVIRUS (RESPIRATORY)Not Dnqekoyz58.000 - 33.630 ppm08/23/2025 6:49 AM EDTHealthTrackRx at [facility] HospitalHAEMOPHILUS INFLUENZAE (RESPIRATORY)019.961 - 24.689 ppm08/23/2025 6:49 AM EDT [facility] HospitalHAEMOPHILUS INFLUENZAE (RESPIRATORY)Not Haaztxzz34.961 - 24.689 ppm08/23/2025 6:49 AM EDTHealthTrackRx at [facility] HospitalESCHERICHIA COLI (RESPIRATORY)019.961 - 24.689 ppm08/23/2025 6:49 AM EDTHealthTrackRx at [facility] HospitalESCHERICHIA COLI (RESPIRATORY)Not Jvqyjubc32.961 - 24.689 ppm08/23/2025 6:49 AM EDTHealth[facility]Rx at [facility] HospitalENTEROVIRUS D68 (RESPIRATORY)023.000 - 32.268 ppm08/23/2025 6:49 AM EDTHealthTrackRx at [facility] HospitalENTEROVIRUS D68 (RESPIRATORY)Not Uatsejlh34.000 - 32.268 ppm08/23/2025 6:49 AM EDT [facility] HospitalOTHER CORONAVIRUSES (229E, NL63, HKU1, OC43) (RESPIRATORY)023.000 - 30.477 ppm08/23/2025 6:49 AM EDTHealthTrackRx at [facility] HospitalOTHER CORONAVIRUSES (229E, NL63, HKU1, OC43) (RESPIRATORY)Not Detected 23.000 - 30.477 ppm08/23/2025 6:49 AM EDTHealthTrackRx at LabPortCHLAMYDIA PNEUMONIAE (RESPIRATORY)019.961 - 24.689 ppm08/23/2025 6:49 AM EDT [facility]CH[facility]YD[facility] PNEUMONIAE (RESPIRATORY)Not Xxzlfnps95.961 - 24.689 ppm08/23/2025 6:49 AM EDTHealthTrackRx at LabPortBORDETELLA PERTUSSIS, PARAPERTUSSIS, BRONCHISEPTICA (RESPIRATORY)019.961 - 24.689 ppm08/23/2025 6:49 AM EDTHealthTrackRx at LabPortBORDETELLA PERTUSSIS, PARAPERTUSSIS, BRONCHISEPTICA (RESPIRATORY)Not Yahlcbqm51.961 - 24.689 ppm08/23/2025 6:49 AM EDTHealthTrackRx at LabPortACINETOBACTER BAUMANNII (RESPIRATORY)019.961 - 24.689 ppm08/23/2025 6:49 AM EDTHealthTrackRx at LabPortACINETOBACTER BAUMANNII (RESPIRATORY)Not Ocymvrtb14.961 - 24.689 ppm08/23/2025 6:49 AM EDT [facility]Ind[facility] COVID-19 ZQTEIRVSFHM037.000 - 31.947 ppm 08/23/2025 6:49 AM EDTHealthTrackRx at LabPortHTRX COVID-19 CORONAVIRUSNot Wmnkcauy84.000 - 31.947 ppm08/23/2025 6:49 AM EDTHealthTrackRx at LabPort RHINOVIRUS/ENTEROVIRUS (RESPIRATORY)29.8(A)23.000 - 30.000 ppm08/23/2025 6:49 AM EDTHealthTrackRx at LabPortRHINOVIRUS/ENTEROVIRUS (RESPIRATORY)Detected(A) 23.000 - 30.000 ppm08/23/2025 6:49 AM EDTHealthTrackRx at LabPortADENOVIRUS HADV-B (RESPIRATORY)023.000 - 31.833 ppm08/23/2025 6:49 AM EDTHealthTrackRx at LabPortADENOVIRUS HADV-B (RESPIRATORY)Not Ryzesdto77.000 - 31.833 ppm 08/23/2025 6:49 AM EDTHealthTrackRx at LabPortENTEROBACTER CLOACAE COMPLEX, KLEBSIELLA (ENTEROBACTER) AEROGENES (FQOOAQBG121.961 - 24.689 ppm08/23/2025 6:49 AM EDTHealthTrackRx at LabPortENTEROBACTER CLOACAE COMPLEX, KLEBSIELLA (ENTEROBACTER) AEROGENES (RESPIRATNot Cjwzaajs40.961 - 24.689 ppm08/23/2025 6:49 AM EDTHealthTrackRx at LabPortSpecimen (Source)Anatomical Location / LateralityCollection Method / VolumeCollection TimeReceived TimePulmonary 08/22/2025 3:00 PM EDT1 10:26 PM EDT Narrative Authorizing ProviderResult TypeResult StatusDahoward Swain DOL BLOOD ORDERABLES Edited Result - FinalPerforming OrganizationAddressCity/State/ZIP CodePhone Number [facility] [address] [place] [address] * (ABNORMAL) Magnesium (08/16/2025 10:32 AM EDT)ComponentValueRef RangeTest MethodAnalysis TimePerformed AtPathologist SignatureMAGNESIUM1.7(L)1.9 - 2.7 mg/dL08/16/2025 11:04 AM ED[facility] CtrSpecimen (Source) Anatomical Location / LateralityCollection Method / VolumeCollection Time Received TimeOtherTopography unknown / Qnowvdd5308/16/2025 10:32 AM EDT 08/16/2025 10:32 AM EDT Narrative Authorizing ProviderResult TypeResult StatusFabiola Marinelli [facility]LLSW[facility] BLOOD ORDERABLES Final ResultPerforming OrganizationAddressCity/State/ZIP CodePhone Number [facility] [address] [place] [address], [facility] [address] [place] [address] * IMMUNOGLOBULINS A/E/G/M, QN ([facility]) (08/02/2025 10:00 AM EDT)ComponentValueRef RangeTest MethodAnalysis TimePerformed AtPathologist SignatureIMMUNOGLOBULIN G 226705 - 1,602 mg/dL08/07/2025 6:36 AM EDTFIRELANDSIMMUNOGLOBULIN A, SERUM<587 - 352 mg/dL08/07/2025 6:36 AM EDTFIRELANDSComment:Result confirmed on concentration.IMMUNOGLOBULIN M, SERUM<526 - 217 mg/dL08/07/2025 6:36 AM EDT [facility]OSPITALComment:Result confirmed on concentration.IMMUNOGLOBULIN E<26 - 495 08/07/2025 6:36 AM EDTFIRELANDSComment: Performed at: ?? - Lab[address] ??[id number] Nurse Discharge Planner: Lang Knight PhD, Phone: ??[phone] Performed at: ??[address] ??[id number] Nurse Discharge Planner: Maxine Briones MD, Phone: ??[phone] Specimen (Source)Anatomical Location / LateralityCollection Method / Volume Collection TimeReceived TimeOtherTopography unknown / Yyuqopz6808/02/2025 10:00 AM EDT1 10:04 AM EDT Narrative Authorizing ProviderResult TypeResult StatusFabiola Marinelli MDLAB BLOOD ORDERABLES Final ResultPerforming OrganizationAddressCity/State/ZIP CodePhone Number [facility] [address] [place] [address], * Copper, serum (08/02/2025 10:00 AM EDT)ComponentValueRef RangeTest Method Analysis TimePerformed AtPathologist DuoxfipnzZDYXTT57057 - 158 ug/dL 08/08/2025 10:06 PM EDTFIRELANDSComment: This test was developed and its performance characteristics determined by [facility]. It has not been cleared or approved by the Food and Drug Administration. ?Detection Limit = 5 Performed at: ??[address] ??[id number] Nurse Discharge Planner: Maxine Briones MD, Phone: ??[phone] Specimen (Source)Anatomical Location / LateralityCollection Method / Volume Collection TimeReceived TimeOtherTopography unknown / Zdlvwqz6008/02/2025 10:00 AM EDT1 10:04 AM EDT Narrative Authorizing ProviderResult TypeResult StatusFabiola Flower Yves JASSOLAB BLOOD ORDERABLES Final ResultPerforming OrganizationAddressty/State/ZIP CodePhone Number [address] [place] [address], * Ceruloplasmin (08/02/2025 10:00 AM EDT)ComponentValueRef RangeTest Method Analysis TimePerformed AtPathologist AsbgholjoHDRUQSKZSISPM39.419.0 - 39.0 mg/dL08/03/2025 3:36 AM EDTFYAKIMA VALLEY MEMORIAL HOSPITALComment: Performed at: ??CB - [facility] [address] ??[id number] Nurse Discharge Planner: Lang Knight PhD, Phone: ??[phone] Specimen (Source)Anatomical Location / LateralityCollection Method / Volume Collection TimeReceived TimeOtherTopography unknown / Rlvmomc6508/02/2025 10:00 AM EDT1 10:04 AM EDT Narrative Authorizing ProviderResult TypeResult StatusFabiola Flower Yves JASSOLAB BLOOD ORDERABLES Final ResultPerforming OrganizationAddressty/State/ZIP CodePhone Number [address] [address], * Folate (08/02/2025 10:00 AM EDT)ComponentValueRef RangeTest MethodAnalysis TimePerformed AtPathologist SignatureFOLATE9.9>5.9 ng/mL08/02/2025 11:[address] [facility]: Folate reference range: >5.9 ng/ml The WHO technical consultation on folate and vitamin b12 deficiencies has determined that folate concentrations less than 4 ng/ml are considered deficient. Specimen (Source)Anatomical Location / LateralityCollection Method / Volume Collection TimeReceived TimeOtherTopography unknown / Yoixvgg2408/02/2025 10:00 AM EDT1 10:04 AM EDT Narrative Authorizing ProviderResult TypeResult StatusFabiola Flower Yves JASSOLAB BLOOD ORDERABLES Final ResultPerforming OrganizationAddressty/State/ZIP CodePhone Number [address] [address], [facility] [address] [place] [address] * (ABNORMAL) Vitamin B12 (08/02/2025 10:00 AM EDT)ComponentValueRef RangeTest MethodAnalysis TimePerformed AtPathologist SignatureVITAMIN B121,113(H)180 - 914 pg/mL08/02/2025 11:03 AM [facility] CtrSpecimen (Source)Anatomical Location / LateralityCollection Method / VolumeCollection TimeReceived TimeOtherTopography unknown / Aftnrdi4408/02/2025 10:00 AM EDT 08/02/2025 10:04 AM EDT Narrative Authorizing ProviderResult TypeResult StatusFabiola Marinelli [facility] BLOOD ORDERABLES Final ResultPerforming OrganizationAddressCity/State/ZIP CodePhone Number [facility] [address] [place] [address], [facility] [address] [place] [address] * Diabetic Retinopathy Screening - OU - [...] TimePerformed AtPathologist Signature MICROALBUMIN, URINE< 0.70.0 - 1.81 1:19 PM [facility] CtrCREATININE, URINE (RANDOM)11.00mg/dL08/26/2024 1:17 PM [facility] CtrComment:No reference range established MICROALBUMIN/CREATININE RATIOTest not performed0.0 - 30.010 1:19 PM [facility] CtrSpecimen (Source)Anatomical Location / LateralityCollection Method / VolumeCollection TimeReceived TimeOtherUrine specimen obtained by clean catch procedure / Ejtzzsq3508/26/2024 12:23 PM EDT 08/26/2024 12:23 PM EDT Narrative Authorizing ProviderResult TypeResult StatusAmy Warchol NPLAB URINE ORDERABLES Final ResultPerforming OrganizationAddressCity/State/ZIP CodePhone Number [facility] [address] [place] [address], [facility] [address] [place] [address] * MM TOMOSYNTHESIS SCREENING BI (08/18/2024 3:19 PM EDT)Anatomical Region LateralityModalityOtherSpecimen (Source)Anatomical Location / Laterality Collection Method / VolumeCollection TimeReceived Time08/18/2024 3:19 PM EDT Narrative 08/18/2024 3:20 PM EDT [facility] ?[address] ? [place] [address] ? Mammography Report ? Signed ? Patient: ELISAMOJGAN S ?MR#: [id number] ?? : 1955 ?Acct:[id number] ?? Age/Sex: 68 / F ?ADM Date: 08/18/ ?? Loc: MAMMO ? Attending Dr: YINKA THOMSON ? Ordering Physician: YINKA THOMSON ? Results: ? Date of Service: 08/18/ ?Follow Up: ? Procedure(s): MM tomosynthesis screening BI ?? Accession Number(s): [id number] ? cc: YINKA THOMSON ? Patient Name: ? MOJGAN SNIDER ? MR#: [id number] ? : 1955 ? Exam Date: 08/18/2024 [...] at age 66. ? LOCATION: ? [facility] ? BREAST COMPOSITION: ? There [...] 1520 ? DD/ 1519 ? TD/TT: ? Textile Pin Worker: Procedure Note Radiology, Radiologist, MD - 08/18/[address] [address] Mammography Report Signed Patient: MOJGAN SNIDER SMR#: [id number] : 1955cct:[id number] Age/Sex: 68 / FADM Date: 08/18/24 Loc: MAMMO Attending Dr: YINKA THOMSON Ordering Physician: YINKA THOMSONResults: Date of Service: 08/18/24Follow Up: Procedure(s): MM tomosynthesis screening BI Accession Number(s): [id number] cc: YINKA THOMSON Patient Name: MOJGAN SNIDER MR#: [id number] : 1955 Exam Date: 08/18/2024 Ordering Doctor: [...] lung cancer at age 66. LOCATION: [facility] BREAST COMPOSITION: There are scattered [...] M.D. Signed By:08/18/24 1520 DD/ 1519 TD/TT: Textile Pin Worker: Authorizing ProviderResult TypeResult StatusBrshefali Thomson MDCLINISYNC IMAGING Final Result * Colonoscopy (09/15/2018 12:00 PM EST)Anatomical RegionLateralityModality EndoscopySpecimen (Source)Anatomical Location / LateralityCollection Method / VolumeCollection TimeReceived Time09/15/2018 12:00 PM EST Narrative 09/15/2018 12:00 PM EST PERFORMED AT [facility] LOCATION:[id number] Abnormal Procedure Note CONVERSION, GENERIC - 03/18/2023 PERFORMED AT [facility] LOCATION:[id number] Abnormal Authorizing ProviderResult TypeResult StatusYinka Thomson MDENDOSCOPY PROCEDURE ORDERABLESFinal Result from Last 3 Months or Most Recently Relevant to Health Maintenance Insurance * Guarantor: Mojgan Snider TypeRelation to PatientDate of BirthPhone Billing AddressPersonal/GmeqtxBlow1955 [facility] [place] [address] Advance Directives * Full Code (Latest Code Status on File) Date ActivatedDate InactivatedComeverett hospital03/01/2025 2:43 PM Care Teams Team MemberRelationshipSpecialtyStart DateEnd Date Yinka Thomson MD [address] [place] [address] PCP - ACO 03/26/23 Power Swain DO [address] [place] [address] PCP - GeneralFamily Medicine04/25/25 Sima Paul, RN [address] [place] [address] Registered NurseFamily Xqfyqgwb73/23/23
--- OUTSIDE RECORDS SUMMARY | 2025-09-25 10:58 | XMS_ITS | Encounter Summary ---
Author Organization [facility] Address [address] [facility] [address], [address] [place] [address] Care Team Providers Care Pool Hall Inspector Name Role Phone Power Swain DO Primary Care Provider [phone] Encounter Details DateTypeDepartmentCare Team (Latest Contact Info)Xavxbxnfssl38/03/2025Abstract [facility] Pulmonology [address] [place] [address] [place] [address] Loyd Raymundo [address] [place] [address] Social History Tobacco UseTypesPacks/DayYears UsedDateSmoking Tobacco: [id number] - 2005Smokeless Tobacco: NeverAlcohol UseStandard Drinks/WeekCommentsNever0 (1 standard drink = 0.6 oz pure alcohol)CommentsUnknownSex and Gender InformationValueDate RecordedSex Assigned at NrgwxUhnnbb37/03/2025 12:27 PM EST Legal UheAwmjzy30/10/2013 1:13 PM ESTGender ZanrbuvwPrtwjd06/03/2025 12:27 PM ESTSexual AliqgdartujWymwluzv41/03/2025 12:27 PM ESTdocumented as of this encounter Plan of Treatment DateTypeDepartmentCare Team (Latest Contact Info)Ssxfkncrxmb97/09/2025 2:30 PM ESTOffice Visit [facility] Pulmonology [address] [place] [address] [address] [place] [address] Loyd Raymundo DO [address] [facility] [address] [place] [address] Return in about 4 weeks (around 10/02/2025) for COPD.documented as of this encounter Visit Diagnoses Not on filedocumented in this encounter Additional Health Concerns AssessmentNoted TimeA fall risk assessment has been completed for the patient 09/04/2025 11:23 AM ESTdocumented as of this encounter Care Teams Team MemberRelationshipSpecialtyStart DateEnd Date Power Swain DO [address] [place] [address] PCP - Yrpzfkz98/3/25documented as of this encounter
--- OUTSIDE RECORDS SUMMARY | 2025-09-25 10:58 | XMS_ITS | Encounter Summary ---
Author Organization [facility] Address [address] [place] [address] Care Team Providers Care Business Development Analyst Name Role Phone Vitaliy Thomson MD Unavailable [phone] Sima Paul RN Unavailable [phone] Power Swain DO Primary Care Provider [phone] Reason for Visit * ReasonCommentsMed Change Request Encounter Details DateTypeDepartmentCare Team (Latest Contact Info)Hlzezyvpurs07/03/2025Refill [facility] hospital [address] [place] [address] [place] [address] Power Swain DO [address] [place] [address] COPD with acute exacerbation (HCC) Social History Tobacco UseTypesPacks/DayYears UsedDateSmoking Tobacco: FormerCigarettes [...] on one occasion?Never06/15/2025PHQ-2AnswerDate Recorded Patient Health Questionnaire-2 Ygqam04811/11/2024CommentsNoSex and Gender InformationValueDate RecordedSex Assigned at BirthNot on fileLegal SexFemale 01/14/2023 6:38 PM EDTGender IdentityNot on fileSexual OrientationNot on file OccupationIndustryJob Start DateJob End DateRetiredNot on fileNot on fileNot on filedocumented as of this encounter Functional Status * Over the past 2 weeks, how often have you been bothered by any of the following problems?QuestionAnswerDate of AssessmentAuthorLittle interest or pleasure in doing thingsNot at all2025 9:50 AM Polina Kirk MA Feeling down, depressed, or hopelessNot at all2025 9:50 AM Polina Kirk MAPatient Health Questionnaire-2 Laqxk99711/11/2024 9:50 AM Polina Kirk MA documented as of this encounter Miscellaneous Notes * Telephone Encounter - Power Swain DO - 09/18/2025 11:35 AM EST So I could send in some afrin nasal spray for temporary use if her congestion is in the sinus/nose region. We can also have her come in for a HTRX if that doesn't work. I would advise to schedule a sooner follow up with Dr. Raymundo pulmonology though since things aren't getting better. Let me know ifshe is alright with the afrin and I will send it in * Telephone Encounter - Polina Ferrari MA - 09/18/2025 10:48 AM EST Patient reports being more congested today than she was before. States tessalon is not helping and neither is breathing treatments. Has taken OTC mucinex with little relief. She is wondering if something else can be sent over for her? * Telephone Encounter - Yeni Swain - 09/08/2025 11:53 AM EST Patient called would like a cough medicine called in if possible before weekend has hospital followup appt scheduled for Thursday. Doesn't want to let cough go all weekend before appointment * Telephone Encounter - Power Swain DO - 09/04/2025 3:26 PM EST Can you do a PA for this to Medicare Part D? documented in this encounter Plan of Treatment DateTypeDepartmentCare Team (Latest Contact Info)Pojastvhond24/08/2025 9:40 AM ESTOffice Visit [facility] [place] [facility] [address], [address] [place] [address] Power Swain DO [address] [place] [address] documented as of this encounter Visit Diagnoses Diagnosis COPD with acute exacerbation (HCC) documented in this encounter Additional Health Concerns AssessmentNoted TimePHQ-9 Depression Total Score: 9:00 AM EST documented as of this encounter Care Teams Team MemberRelationshipSpecialtyStart DateEnd Date Vitaliy Thomson MD [address] [place] [address] PCP - ACO Reach03/26/23 Power Swain DO [address] [place] [address] PCP - GeneralFamily Medicine04/25/25 Sima Paul, RN [address] [place] [address] Registered NurseFamily Catcoiwn97/23/23documented as of this encounter
--- OUTSIDE RECORDS SUMMARY | 2025-09-25 10:58 | XMS_ITS | Encounter Summary ---
Author Organization [facility] Address [address] [place] [address] Care Team Providers Care Sephora Product Consultant Name Role Phone Vitaliy Thomson MD Unavailable [phone] Sima Paul RN Unavailable [phone] Power Swain DO Primary Care Provider [phone] Reason for Visit * ReasonOnset DateCommentsMed Qbugij7909/20/2025 Encounter Details DateTypeDepartmentCare Team (Latest Contact Info)Oxlbxfukxlr93/19/2025Telephone [facility] [address], [facility] [address] [place] [address] Power Swain DO [address] [place] [address] Med Refill Social History Tobacco UseTypesPacks/DayYears UsedDateSmoking Tobacco: FormerCigarettes [...] on one occasion?Never06/15/2025PHQ-2AnswerDate Recorded Patient Health Questionnaire-2 Qeuju91411/11/2024CommentsNoSex and Gender InformationValueDate RecordedSex Assigned at BirthNot on fileLegal SexFemale 01/14/2023 6:38 PM EDTGender IdentityNot on fileSexual OrientationNot on file OccupationIndustryJob Start DateJob End DateRetiredNot on fileNot on fileNot on filedocumented as of this encounter Miscellaneous Notes * Addendum Note - Nargis Huang MA - 09/20/2025 10:17 AM ESTAddended by: NARGIS HUANG on: 09/20/2025 10:17 AM Modules accepted: Orders * Telephone Encounter - Yeni Swain - 09/20/2025 9:31 AM EST Breztri inhaler needs refill - patient called and is about out - requesting refill to [facility] pharmacy in [place] documented in this encounter Plan of Treatment DateTypeDepartmentCare Team (Latest Contact Info)Imxjnusnlwz32/08/2025 9:40 AM ESTOffice Visit [facility] [address], [address] [place] [address] Power Swain DO [address] [place] [address] documented as of this encounter Visit Diagnoses Diagnosis COPD with acute exacerbation (HCC) documented in this encounter Additional Health Concerns AssessmentNoted TimePHQ-9 Depression Total Score: 9:00 AM EST documented as of this encounter Care Teams Team MemberRelationshipSpecialtyStart DateEnd Date Vitaliy Thomson MD [address] [place] [address] PCP - ACO Reach03/26/23 Power Swain DO [address] [place] [address] PCP - GeneralFamily Medicine04/25/25 Sima Paul, RN [address] [place] [address] Registered NurseFamily Xkuzexhq68/23/23documented as of this encounter
--- OUTSIDE RECORDS SUMMARY | 2025-09-25 10:58 | XMS_ITS | Encounter Summary ---
Author Organization [facility]soren [facility] Address [address], [address] [place] [address] Care Team Providers Care Chief Talent Officer Name Role Phone Power Swian Primary Care Provider [phone] Reason for Visit * ReasonOnset DateCommentsMedication Check09/12/2025New Med Bhsbvtj4409/12/2025 Encounter Details DateTypeDepartmentCare Team (Latest Contact Info)Dvuztvuwyvm03/11/2025Telephone [facility] Pulmonology [address] [facility] [address] [place], [place] [address] Loyd Raymundo DO [address] [facility] [address] [place] [address] Medication Check; New Med Request Social History Tobacco UseTypesPacks/DayYears UsedDateSmoking Tobacco: KxyveeLepggihegq4436002 - 2005Smokeless Tobacco: NeverAlcohol UseStandard Drinks/WeekCommentsNever0 (1 standard drink = 0.6 oz pure alcohol)CommentsUnknownSex and Gender InformationValueDate RecordedSex Assigned at ZgjxvNquigp85/03/2025 12:27 PM EST Legal DxlJbxgfx28/10/2013 1:13 PM ESTGender UdmyiyfwJwzwlk96/03/2025 12:27 PM ESTSexual JihanqpoxioHtgatipt38/03/2025 12:27 PM ESTdocumented as of this encounter Plan of Treatment DateTypeDepartmentCare Team (Latest Contact Info)Rrljmgrkoeb07/09/2025 2:30 PM ESTOffice Visit [facility] Pulmonology [address] [facility] [address] [place] [address] Loyd Raymundo DO [address] [facility] [address] [place] [address] Return in about 4 weeks (around 10/02/2025) for COPD.documented as of this encounter Visit Diagnoses Not on filedocumented in this encounter Additional Health Concerns AssessmentNoted TimeA fall risk assessment has been completed for the patient 09/04/2025 11:23 AM ESTdocumented as of this encounter Care Teams Team MemberRelationshipSpecialtyStart DateEnd Date Power Swain DO [address] [place] [address] PCP - Npddcfz19/3/25documented as of this encounter
--- OUTSIDE RECORDS SUMMARY | 2025-09-25 10:58 | XMS_ITS | Encounter Summary ---
Author Organization [facility] Address [address] [facility] [place] [address] Care Team Providers Care Data Warehouse Developer Name Role Phone Vitaliy Thomson MD Unavailable [phone] Sima Paul RN Unavailable [phone] Power Swain DO Primary Care Provider [phone] Encounter Details DateTypeDepartmentCare Team (Latest Contact Info)Zqetsixxmcx72/24/2025Patient Outreach [facility] [address] [place] [address] Sima Paul, RN [address] [place] [address] Social History Tobacco UseTypesPacks/DayYears UsedDateSmoking Tobacco: FormerCigarettes [...] on one occasion?Never06/15/2025PHQ-2AnswerDate Recorded Patient Health Questionnaire-2 Dnsno81811/11/2024CommentsNoSex and Gender InformationValueDate RecordedSex Assigned at BirthNot on fileLegal SexFemale 01/14/2023 6:38 PM EDTGender IdentityNot on fileSexual OrientationNot on file OccupationIndustryJob Start DateJob End DateRetiredNot on fileNot on fileNot on filedocumented as of this encounter Progress Notes * Sima Paul RN - 09/25/2025 10:24 AM EST Weekly monitor #4, [facility] DX: COPD exacerbation. Pt reports she is doing a little bit better. She is taking Tussin cough syrup as needed. She has follow up with Dr. Raymundo as previously scheduled on 10/10, she is unaware if any earlier available. Denies any other needs at this time. Reports her sister just , condolence given. Active listening and support provided. Advised closing 30 day monitor, but will resume monthly calls. Enc to call prior if any needs arise. Verbalized understanding. Flowsheet Row Patient Out[facility] with Sima Paul RN Week Number Call Week 4 Call Was patient contacted successfully? Yes Have you had any urgent care/ED/Hospital visits since discharge? No Any medication changes since last contact? No Is the patient taking all medications as directed? Yes Have you visited your PCP since discharge? Yes Have you visited your specialist since discharge? Yes What is the patient's perception of their health status since discharge? Returned to baseline/stable Is the patient/caregiver able to teach back the hierarchy of who to call/visit for symptoms/problems? PCP, Specialist, Home Health nurse, Urgent Care, ED, 911 Yes documented in this encounter Plan of Treatment DateTypeDepartmentCare Team (Latest Contact Info)Zlfgwayrrol15/08/2025 9:40 AM ESTOffice Visit [facility] [address], [address] [place] [address] Power Sawin, [address] [facility] [address] [place] [address] documented as of this encounter Visit Diagnoses Diagnosis Chronic obstructive pulmonary disease, unspecified COPD type (HCC)- Primary Essential hypertension Unspecified essential hypertension documented in this encounter Additional Health Concerns AssessmentNoted TimePHQ-9 Depression Total Score: 9:00 AM EST documented as of this encounter Care Teams Team MemberRelationshipSpecialtyStart DateEnd Date Vitaliy Thomson MD [address] [place] [address] PCP - ACO [facility]03/26/23 Power Swain DO [address] [address] PCP - GeneralFamily Medicine04/25/25 Sima Paul RN [address] [place] [address] Registered NurseFamily Oyddrtok23/23/23documented as of this encounter
--- OUTSIDE RECORDS SUMMARY | 2025-09-25 10:58 | XMS_ITS | Clinical Summary ---
Author Organization [facility] Address [address], [address] [place] [address] Care Team Providers Care Staff Climate Scientist Name Role Phone Power Swain Primary Care Provider [phone] Allergies Active AllergyReactionsCriticalityNoted DateCommentsAdhesive TapeRashLow 05/15/2016AmoxicillinSwelling,HgmcSqaksm19/16/1416TapolbqstxXywppzkFfw57/20/2023 Diclofenac HrsdkbDbisubpaPlnmvt72/24/7103HmhrwimgxbleSbxdwXcd88/30/2013Latex LkmduOqdxoz55/12/2019QuinolonesHives,TipxTab0505/25/2019TetracyclineHivesMedium 04/13/2019 Medications MedicationSigDispense QuantityRefillsLast FilledStart DateEnd DateStatus acyclovir (ZOVIRAX) 400 MG tablet Take 1 tablet by mouth 2 times daily5Active amLODIPine (NORVASC) 2.5 MG tablet Take 1 tablet by mouth daily5Active atorvastatin (LIPITOR) 40 MG tablet Take 1 tablet by mouth daily/ctive busPIRone (BUSPAR) 10 MG tablet Take 1 tablet by mouth 2 times daily5Active carvedilol (COREG) 12.5 MG tablet Take 1 tablet by mouth 2 times daily (with meals)5Active cetirizine (ZYRTEC) 10 MG tablet Take 1 tablet by mouth ycljgen23ctive fluticasone (FLONASE) 50 MCG/ACT nasal spray 2 sprays by Nasal route daily07/18/2025tive furosemide (LASIX) 20 MG tablet Take 1 tablet by mouth dailyctive magnesium oxide (MAG-OX) 400 MG tablet Take 1 tablet by mouth daily07/28/2025tive metFORMIN (GLUCOPHAGE-XR) 500 MG extended release tablet Take 1 tablet by mouth daily06/07/2025tive morphine (MS CONTIN) 15 MG extended release tablet Take 1 tablet by mouth 2 times daily.Active omeprazole (PRILOSEC) 40 MG delayed release capsule Take 1 capsule by mouth every morning (before breakfast) Active oxyCODONE HCl (OXY-IR) 10 MG immediate release tablet Take 1 tablet by mouth every 6 hours as needed.08/16/2025tive ondansetron (ZOFRAN-ODT) 8 MG TBDP disintegrating tablet Take 1 tablet by mouth every 8 hours as needed for Nausea or Hlftfngg55/15/2025 Active potassium chloride (MICRO-K) 10 MEQ extended release capsule Take 1 capsule by mouth daily07/25/2025tive sulfamethoxazole-trimethoprim (BACTRIM DS;SEPTRA DS) 800-160 MG per tablet Take 1 tablet by mouth every other dayActive traZODone (DESYREL) 50 MG tablet Take 1 tablet by mouth vhltrug4008/09/2025tive melatonin 1 MG tablet Take 2 tablets by mouth nightlyActive prochlorperazine (COMPAZINE) 10 MG tablet Take 1 tablet by mouth every 8 hours as xqnnmg1007/28/2025tive simvastatin (ZOCOR) 20 MG tablet Take 1 tablet by mouth rjykzfr78ctive Byewdic-Dmwpvdmgvgl-Umpbjxpiov (BREZTRI AEROSPHERE) 160-9-4.8 MCG/ACT AERO Indications:Chronic obstructive pulmonary disease, unspecified COPD type (HCC) Inhale 2 puffs into the lungs 2 times daily 3 each tive ipratropium 0.5 mg-albuterol 2.5 mg (DUONEB) 0.5-2.5 (3) MG/3ML SOLN nebulizer solution Indications:Chronic obstructive pulmonary disease, unspecified COPD type (HCC) Inhale 3 mLs into the lungs 4 times daily 1080 mL /6Active guaiFENesin (MUCINEX) 600 MG extended release tablet Indications:Chronic obstructive pulmonary disease, unspecified COPD type (HCC) Take 2 tablets by mouth 2 times daily 360 tablet 5Active albuterol sulfate HFA (PROVENTIL;VENTOLIN;PROAIR) 108 (90 Base) MCG/ACT inhaler Indications:Chronic obstructive pulmonary disease, unspecified COPD type (HCC) Inhale 2 puffs into the lungs every 4 hours as needed for Shortness of Breath 54 g 5Active nystatin (MYCOSTATIN) 544120 UNIT/ML suspension Indications:Oral candidiasisTake 5 mLs by mouth 4 times daily Swish & swallow 200 mL 5Active albuterol (PROVENTIL) (2.5 MG/3ML) 0.083% nebulizer solution Take 3 mLs by nebulization every 4 hours as dvdvmf9009/04/2025Discontinued (Ineffective) BREZTRI AEROSPHERE 160-9-4.8 MCG/ACT AERO Inhale 2 puffs into the lungs 2 times dailyDiscontinued (REORDER) guaiFENesin (MUCINEX) 600 MG extended release tablet Take 1 tablet by mouth 2 times dailyDiscontinued(REORDER) ipratropium 0.5 mg-albuterol 2.5 mg (DUONEB) 0.5-2.5 (3) MG/3ML SOLN nebulizer solution Inhale 3 mLs into the lungs every 6 hoursDiscontinued (REORDER) predniSONE (DELTASONE) 20 MG tablet Indications:COPD with acute exacerbation (HCC)Take 3 tablets by mouth daily for 3 days, THEN 2 tablets daily for 3 days, THEN 1 tablet daily for 3 days. Take with food. 18 tablet Expired Active Problems ProblemNoted DateDiagnosed DateDM2 (diabetes mellitus, type 2) Assessment & Plan (09/04/2025 12:43 PM EST): Steroids prescribed for this patient's underlying pulmonary disease can adversely affect blood glucose levels, inducing hyperglycemia and/or worsening underlying diabetes. she was encouraged to follow-up with her primary care provider to create a management plan. History of tobacco abuse Assessment & Plan (09/04/2025 12:43 PM EST): The patient was evaluated for low-dose CT (LDCT) for lung cancer screening. Current Medicare-accepted eligibility criteria were reviewed. - Age 50-77 years: Patient's age = 69 y.o. - Asymptomatic (no signs or symptoms of lung cancer): Yes; She is being treated for other cancer however. - Tobacco Use Smoking status: Former Packs/day: 0.00 Years: 3.0 packs/day for 20.0 years (60.0 ttl pk-yrs) Types: Cigarettes Start date: 1984 Quit date: 2004 Years since quittin.8 Smokeless tobacco: Never Based on the above, she is not candidate for LDCT screening. 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 This increases her risk for future exacerbations of COPD and other opportunistic pulmonary infections. She is on Bactrim DS chronic for likely PCP prophylaxis. COPD (chronic obstructive pulmonary disease) Assessment & Plan (09/04/2025 1:50 PM EST): Patient is currently being treated for acute exacerbation of COPD. This diagnosis is used for refills of medications and DME supplies. During the encounter, she states her breathing has been declining over the past year. Her last appointment with me was 06/27/2024; a three month F/U visit was cancelled. I was only able to review her most recent office note after she left the office. At that time, she was doing fair on Breztri, supplemented with albuterol nebs. I prescribed hypertonic saline (sodium chloride 3%) d/t increased sputum production not controlled with Mucinex; she did not take home her PEP device after a recent exacerbation earlier that summer. While I was with the patient, I reviewed that she is already on triple inhaled therapy (Breztri = ICS/LABA/LAMA). Discussed since the patient was last seen by me, 2 new FDA approved treatments for COPD have been released on the market. She does not have eosinophils, so Dupixent is not an option. Discussed Ohtuvayre, PDE-4 inhibitor, to add on top of Breztri. Discussed potential adverse effects such as depression and decreased appetite/weight loss. Patient voiced she is fine with those risks andwould like to proceed. Initial paperwork was completed in the office. I explained that I have seen patients either receive this at no cost, or typically a co-pay of $600/month, so she may not be ableto afford it. A vsrg-wx-vzhe encounter was performed with the patient today in order to document continued need for a nebulizer with nebulized medications. She requires a nebulizer for the following reason: DuoNebis more effective than albuterol nebulized. DuoNeb is administered via nebulizer. Additionally, ordering Ohtuvayre, which is only available to be administered via nebulizer. This documentation authorizes the renewal, reorder/refill, and replacement of the nebulizer and all associated supplies. Screening for alpha-1 antitrypsin (AAT) deficiency was performed today in the office. Literature explaining AAT and complications regarding its deficiency were provided to the patient. Appropriate follow-up is dependent on the identified AAT genotype. At the F/U visit, I will need to discuss with the patient what happened with the hypertonic saline. Orders: Rovxiwe-Xvksdyoxill-Lnlimkymfi (BREZTRI AEROSPHERE) 160-9-4.8 MCG/ACT AERO; Inhale 2 puffs into thelungs 2 times daily ipratropium 0.5 mg-albuterol 2.5 mg (DUONEB) 0.5-2.5 (3) MG/3ML SOLN nebulizer solution; Inhale 3 mLs into the lungs 4 times daily guaiFENesin (MUCINEX) 600 MG extended release tablet; Take 2 tablets by mouth 2 times daily albuterol sulfate HFA (PROVENTIL;VENTOLIN;PROAIR) 108 (90 Base) MCG/ACT inhaler; Inhale 2 puffs into the lungs every 4 hours as needed for Shortness of Breath Encounters DateTypeDepartmentCare JlgyRhmeqghopuf90/19/2025Abstract [facility] [address], [address] [place] [address] Loyd Raymundo DO 09/20/2025Telephone [facility] [address] [place] [address] Loyd Raymundo DO 09/12/2025Telephone [facility] [address] [place] [address] Loyd Raymundo DO Medication Check; New Med Jgakfdu5409/11/2025bstract [facility] [address] [place] [address] Loyd Raymundo DO 09/04/2025 11:00 AM ESTOffice Visit [facility] [address] [place] [address] Loyd Raymundo DO COPD with acute exacerbation (HCC) (Primary Dx); Oral candidiasis; Encounter for immunization; 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; DM2 (diabetes mellitus, type 2); History of tobacco abuse; COPD (chronic obstructive pulmonary disease)09/04/2025bstract [facility] [address] [place] [address] Loyd Raymundo DO from Last 3 Months Immunizations ImmunizationAdministration DatesNext DueInfluenza, FLUZONE High Dose, (age 65 y+), IM, Trivalent PF, 0.5mL4Pneumococcal, PPSV23, PNEUMOVAX 23, (age 2y+), SC/IM, 0.5mL10/05/2017RSV, AREXVY, (age 60y+), PF, IM, 0.5mL10/18/2024 Family History Medical HistoryRelationNameCommentsEmphysemaFatherHeart DiseaseFatherColon CancerMotherHeart DiseaseMotherRelationNameStatusCommentsFatherMother Social History Tobacco UseTypesPacks/DayYears UsedDateSmoking Tobacco: GxnqtbKsjoppsexr8471713 - 2005Smokeless Tobacco: Never Tobacco Cessation:Counseling Given: Not Answered Alcohol UseStandard Drinks/WeekCommentsNever0 (1 standard drink = 0.6 oz pure alcohol)CommentsUnknownSex and Gender InformationValueDate RecordedSex Assigned at FndblTvkpwm90/03/2025 12:27 PM ESTLegal NwyGopitc94/10/2013 1:13 PM ESTGender IhhlhgsjEtfikn74/03/2025 12:27 PM ESTSexual OrientationStraight 09/04/2025 12:27 PM EST Last Filed Vital Signs Vital SignReadingTime TakenCommentsBlood Zqbyvweg722/8209/04/2025 11:05 AM EST Fzqpk589809/04/2025 11:05 AM FMODxzeidzfacx84.2 ??C (97.1 ??F)09/04/2025 11:05 AM ESTRespiratory Qciv056711/04/2024 11:05 AM ESTOxygen Psisdixofe94%09/04/2025 11:05 AM ESTon room airInhaled Oxygen Concentration--Jjxjkg06.8 kg (189 lb 3.2 oz) 09/04/2025 11:05 AM DZFJpfxjs922.5 cm (5' 2 )09/04/2025 11:05 AM ESTBody Mass Index34.6109/04/2025 11:05 AM EST Plan of Treatment DateTypeDepartmentCare Team (Latest Contact Info)Cuxwdldweuz34/09/2025 2:30 PM ESTOffice Visit [facility] [address] [place] [address] [address] [place] [address] Loyd Raymundo, [address] [place] [address] [address] [place] [address] Return in about 4 weeks (around 10/02/2025) for COPD.Health MaintenanceDue Date Last FojjExzlkmgjJ6B test (Diabetic or Prediabetic)1967Diabetic foot exam 09/11/19671424Nwpsgq24/10/1967Depression Wzgdml6609/11/1969Diabetic Alb to Cr ratio (uACR) test1975Diabetic retinal exam1975GFR test (Diabetes, CKD 3-4, OR last GFR 15-59)1975Hepatitis C oyeoxv4409/11/1975DTaP/Tdap/Td vaccine (1 - Tdap)09/11/19760716Bjwbxyexqmx55/10/2002Colorectal Cancer Sxypuv1109/11/2002 FIT/FOBT: Average risk2002Fecal-DNA (Cologuard): Average risk2002 Sigmoidoscopy/CT cwkdywqehfeb34/10/2002Shingles vaccine (1 of 2)2007 Pneumococcal 50+ years Vaccine (3 of 3 - PCV20 or PCV21)2112/06/2016, 07/16/2015Breast cancer , 04/06/2020, 03/23/2019, Additional history existsFlu vaccine (#1)512/, 09/12/2019, 10/14/2018, Additional history existsCOVID-19 Vaccine ( - season) 2025DEXA (modify frequency per FRAX score)Okrhguael85/27/2023Respiratory Syncytial Virus (RSV) or age 60 yrs+Vfmvaesux07/17/2024Hepatitis A vaccineAged OutNo longer eligible based on patient's age to complete this topic Hepatitis B vaccineAged OutNo longer eligible based on patient's age to complete this topicHib vaccineAged OutNo longer eligible based on patient's age to complete this topicMeningococcal (ACWY) vaccineAged OutNo longer eligible based on patient's age to complete this topicMeningococcal B vaccineAged OutNo longer eligible based on patient's age to complete this topicPolio vaccineAged OutNo longer eligible based on patient's age to complete this topic Insurance * Guarantor: Mojgan Snider TypeRelation to PatientDate of BirthPhone Billing AddressPersonal/FsijqwPakg1955 [facility] [place] [address] Advance Directives NameRelationshipHealthcare Agent RelationshipCommunicationMichelle Emil Primary Decision Maker* Care Teams Team MemberRelationshipSpecialtyStart DateEnd Date Power Swain DO [address] [place] [address] [facility] - Nekozip37/3/25
--- OUTSIDE RECORDS SUMMARY | 2025-09-25 10:58 | XMS_ITS | Clinical Summary ---
Author Organization [facility] Address [address] [place] [address] Phone Care Team Providers Care Soaking Pit Operator Name Role Phone Supa Lindquist MD PhD Unavailable [phone] Jessica Grove RN Unavailable Unavailable Lisette Perkins EMT B-ASSOCIATE DIRECTOR CAREER SERVICES Unavailable [phone] Theresa Romano MD PhD Unavailable [phone] Negro Epps MD PhD Unavailable [phone] Power Swain DO Primary Care Provider [phone] Allergies Active AllergyReactionsCriticalityNoted LwxrHaoqzqtaUcoefgciVjipwFei35/14/2016 AmoxicillinSwelling,HswnBkg17//9856HgbvzmjgynBeuuraxRup09/20/2023Moxifloxacin NdakUqs6408/04/20239530NilgqogputEljbcCya25/24/2308HmzqacriuvjnXoqzyQao40/30/2013Latex Hives,JekkHvcjzz73/03/2023TetracyclinesHives,CtalVrmock08/03/2023 Medications MedicationSigDispense QuantityRefillsLast FilledStart DateEnd DateStatus albuterol [...] TIMES DAILY FOR PAIN FOR 30 DAYS02/11/2024ctive zusgudmdbj-ambptfsv-pvzppnfqij (Breztri Aerosphere) 160-9-4.8 mcg/actuation HFA aerosol inhaler [...] TO 4 TIMES PER DAY NEEDED FOR PENQDEFSYIW16/15/2025Active Ozempic 0.25 mg or 0.5 mg (2 mg/3 mL) pen injector Inject 0.5 mg under the skin 1 (one) time per week.08/23/2024ctive spironolactone (Aldactone) 50 mg tablet Take 1 tablet (50 mg) by mouth early in the morning..10/06/2024ctive Active Problems ProblemNoted DateDiagnosed DateMultiple myeloma not having achieved remission 10/20/20238383Vdldqiakoiwc08/13/2023 Assessment & Plan (08/17/2023 7:42 AM EDT): Due to disease and chemotherapy Transfuse for Hgb < 7 g/dL and platelets < 10 k/uL or bleeding Assessment & Plan (08/14/2023 11:02 AM EDT): :: Due to disease and chemotherapy - Transfuse for Hgb < 7 g/dL and platelets < 10 k/uL or bleeding Yjcbrxgjghtq95/04/6634Hcjtiwcddevhks34/04/2023Type 2 diabetes swjaidgd87/04/2023 Peripheral ulkxdboymr36/04/2023Multiple hkqgagh1608/03/2023 Assessment & Plan (09/28/2023 6:52 PM EST): Referral from Dr. Marinelli at [facility]. MGUS since 2005 Followed at [facility] by Dr. Kumari, [...] radiation field this may not be entirely vendor representatives. Also clonal evolution in the marrow with [...] Plan, so I will enter these outside Bkshkngsgr78/19/1090Gqvlmenwollu14/19/0651Rnwgzfwazcfcngejivfvp57/19/2023 Immunodeficiency ilxpwgbk71/06/2021 Assessment & Plan (02/14/2024 6:23 PM EDT): Infection prophylaxis VZV: Acyclovir 400 mg PO BID PJP: Trimethoprim-sulfamethoxazole 800-160 mg PO 3x weekly Hypogammaglobulinemia IVIG given 09/22/23, 10/29/23 ([facility]) 12/08/23 01/12/24 02/12/24. Cont monthly. Assessment & Plan (01/28/2024 12:26 PM EDT): Infection prophylaxis VZV: Acyclovir 400 mg PO BID PJP: Trimethoprim-sulfamethoxazole 800-160 mg PO 3x weekly Hypogammaglobulinemia IVIG given 09/22/23, 10/29/23 ([facility]) 12/08/23 and 01/12/24. Cont monthly. Assessment & Plan (01/14/2024 10:27 AM EDT): Infection prophylaxis VZV: Acyclovir 400 mg PO BID PJP: Trimethoprim-sulfamethoxazole 800-160 mg PO 3x weekly Hypogammaglobulinemia IVIG given 09/22/23, 10/29/23 ([facility]) and 12/08/23. Plan next today 01/12/24. Assessment & Plan (01/03/2024 11:33 AM EST): Infection prophylaxis VZV: Acyclovir 400 mg PO BID PJP: Trimethoprim-sulfamethoxazole 800-160 mg PO 3x weekly Hypogammaglobulinemia IVIG given 09/22/23, 10/29/23 ([facility]) and 12/08/23. Plan next dose 01/05/24. Assessment & Plan (11/28/2023 4:08 PM EST): Infection prophylaxis VZV: Acyclovir 400 mg PO BID PJP: Trimethoprim-sulfamethoxazole 800-160 mg PO 3x weekly Hypogammaglobulinemia IVIG given 09/22/23 and 10/29/23 ([facility]) Plan next dose 12/08/23 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)07/11/2019 Primary localized osteoarthrosis of ankle and foot06/01/2019Chronic obstructive pulmonary hfxjazs1504/19/2019Smoldering jwbyozz9404/19/2019Thoracic aortic aneurysm without elydesl0304/15/2019GERD (gastroesophageal reflux disease)04/07/2018Morbid ttqpzgg0311/11/2017Familial rwuabfbhiiucomlliixx27/12/2015Thrombocytopenia 05/31/2014Sleep apnea04/15/2006Monoclonal xxtvzxyiskeipch28/25/2006 Resolved Problems ProblemNoted DateDiagnosed DateResolved DateImmunosuppressed gngsxh5808/14/2023 11/27/2023 Assessment & Plan (11/18/2023 12:39 PM EST): Infection prophylaxis VZV: Continue acyclovir 400 mg PO BID PJP: Continue trimethoprim-sulfamethoxazole 800-160 mg PO 3x weekly Hypogammaglobulinemia IVIG given 09/22/23 and 10/29/23 ([facility]) Assessment & Plan (08/17/2023 7:42 AM EDT): - VZV: Continue acyclovir 400 mg PO BID - PJP: Continue trimethoprim-sulfamethoxazole 800-160 mg PO 3x weekly Assessment & Plan (08/14/2023 10:20 AM EDT): - VZV: Continue acyclovir 400 mg PO BID - PJP: Continue trimethoprim-sulfamethoxazole 800-160 mg PO 3x weekly Multiple myeloma, remission status rdlwbsmdylh80Obesity, Class III, BMI 40-49.9 (morbid obesity)typical chest pain Vitamin D yvsvkczeyr61 Immunizations ImmunizationAdministration DatesNext DueFlu vaccine (IIV4), preservative free *Check age/dose*09/12/2019,10/14/2018Influenza, Msfqimgbvqm47/11/2019Influenza, seasonal, wswsabwagg67/14/2015Influenza, seasonal, intradermal, preservative free10/05/2017Pneumococcal conjugate vaccine, 13-valent (PREVNAR 13)07/16/2015 Pneumococcal polysaccharide vaccine, 23-valent, age 2 years and older (PNEUMOVAX 23)10/05/2017 Family History Medical HistoryRelationNameCommentsLung cancerBrotherCancerFatherCoronary artery diseaseFatherLeukemiaMaternal GrandmotherCancerMotherCancerPaternal Grandmother Breast cancerSisterRelationNameStatusCommentsBrotherFatherMaternal Grandmother MotherPaternal GrandmotherSister Social History Tobacco UseTypesPacks/DayYears UsedDateSmoking Tobacco: DcnbwqRxvoxbmhun848.7 11/02/1976 - 08/02/2003Passive Smoke Exposure: PastSmokeless Tobacco: [...] steady place to sleep or slept in [facility] (including now)?No11/19/2023CommentsUnknown Sex and Gender InformationValueDate RecordedSex Assigned at BirthNot on file Legal HtzDdyzgx87/25/2022 4:17 PM ESTGender IdentityNot on fileSexual EppviekjxjxSsibjaql98/21/2025 6:11 AM EDT Last Filed Vital Signs Vital SignReadingTime TakenCommentsBlood Xzahpika098/6208 12:41 PM EDT Vltmo643806/22/2025 12:41 PM AGNDqqjkadfdju44.4 ??C (97.5 ??F)06/22/2025 12:41 PM EDTRespiratory Wdkp184906/22/2025 12:41 PM EDTOxygen Xliiullyqu67%06/22/2025 12:41 PM EDTInhaled Oxygen Concentration--Kjjxat07.5 kg (193 lb)06/22/2025 6:39 AM EDT Cogkql811.5 cm (5' 2 )06/22/2025 6:39 AM EDTBody Mass Index35.308 6:39 AM EDT Plan of Treatment Health MaintenanceDue DateLast DoneCommentsCT Obewkuzntmub1957FIT-DNA (Cologuard)1955FIT1955 5022Gulvpcrwjzqxm1957MMR Vaccines (1 of 1 - Standard series)1958COVID-19 Vaccine (#1)1962Hepatitis C Screening 1975Hepatitis A Vaccines (1 of 2 - Risk 2-dose series)1976Zoster Vaccines (1 of 2)1976DTaP/Tdap/Td Vaccines (1 - Tdap)1979Hepatitis B Vaccines (1 of 3 - Risk 3-dose series)2017Diabetes: Retinopathy Screening /Pneumococcal Vaccine (3 of 3 - PCV20 or PCV21)10/05/2022 10/05/2017, 07/16/20150576Drpvmwrmq93, 10/16/2022, 04/06/2020 Diabetes: Hemoglobin A1C01/03619286/12/2022Medicare Annual Wellness Visit (AWV) , 11/22/2021, 11/23/2020, Additional history existsBone Density Scan5012/29/2022, 12/29/2022Influenza Vaccine (#1)2025 10/18/2024, 09/12/2019, 09/12/2019, Additional history existsDiabetes: Urine Protein Oompxdivg70/, 11/30/2023Lipid Panel/ Xhipjmegsbi56/14/202811/, 05/01/2015Colorectal Cancer Hxsvrwege60/14/2028 Welcome to Medicare RffqbMgmydricjydf34/30/2023, 11/22/2021, 11/23/2020, Additional history existsRSV High Risk: (Elderly (60+) or Population) Bsejmewrm76/17/2024HIB VaccinesAged OutNo longer eligible based on patient's [...] TypeAssociated ProblemsRecent ProgressPatient-Stated?Author Autogenerated Goal Care PlanAutogenerated ProblemRebecca Suero Procedures Procedure NamePriorityDate/TimeAssociated DiagnosisCommentsHEMOGLOBIN K4YTcxobpu 08/04/2023 2:49 AM EDT from Last 3 Months or Most Recently Relevant to Health Maintenance Results * Hemoglobin A1C (08/04/2023 2:49 AM EDT)ComponentValueRef RangeTest Method Analysis TimePerformed AtPathologist SignatureHemoglobin A1C4.9see below % 08/04/2023 4:[address] [facility] LABEstimated Average Feuqgap36Jkw Established mg/dL08/04/2023 4:[address] [facility] LABSpecimen (Source)Anatomical Location / LateralityCollection Method / VolumeCollection TimeReceived TimeBloodVenous blood specimen / Azqqrsa6608/04/2023 2:49 AM EDT1 3:18 AM EDT Narrative Authorizing ProviderResult TypeResult StatusXhuliana Jeannette PA-CLAB BLOOD ORDERABLESFinal ResultPerforming OrganizationAddressCity/State/ZIP CodePhone Number [facility] [address] [place] [phone] from Last 3 Months or Most Recently Relevant to Health Maintenance Additional Health Concerns Active ProblemsNoted DateDiagnosed DateAutogenerated Bcujczw2605/01/2025 Insurance Advance Directives For more information, please contact: [phone] (Available ) * Full Code (Latest Code Status on File) Date ActivatedDate InactivatedComments11/18/2023 2:23 PMQuestionAnswerComments Plan of Care:* Code Status Discussion Completed Decision Maker:* Patient * Full Code Date ActivatedDate DdugpmxsrmzOwkjvfkx96/3/2023 12:24 AM08/13/2023 3:26 PM QuestionAnswerCommentsPlan of Care:* Code Status Discussion Completed Decision Maker:* Patient * Full Code Date ActivatedDate TtxyidannskGntxdcms77/3/2023 12:24 AM08/04/2023 12:24 AM QuestionAnswerCommentsPlan of Care:* Code Status Discussion Completed Decision Maker:* Patient Care Teams Team MemberRelationshipSpecialtySttenakee springs [place] [address] [place] [address] [facility] - [facility]/09/25 Supa Lindquist MD PhD [id number] [place] [address] Consulting PhysicianHematology and Rrmldbis48/2/23 Jessica Grove, admitting supervisor CoordinatorCase Egumedtszy89/3/23 Lisette Perkins, EMT B-ASSOCIATE DIRECTOR CAREER SERVICES Nurse PractitionerHematology and Giaypphv81/13/23 Theresa Rom[place] PhD [address] [place] [address] Consulting PhysicianHematology and Oncology11/18/23 [place] PhD [address] [place] [address] Consulting PhysicianHematology and Oncology01/19/24
--- OUTSIDE RECORDS SUMMARY | 2025-09-25 10:58 | XMS_ITS ---
Author Organization [facility] Address [address] [place] [address] Care Team Providers Care International Operations Manager Name Role Phone Vitaliy Thomson MD Unavailable Sima Paul RN Unavailable [phone] Power Swain DO Primary Care Provider [phone] 30 Day Monitoring Program Status:Closed (Closed) Start date:08/31/2025 Enrollment date:08/31/2025 End date:09/25/2025 Close reason:Actively enrolled in CCM Overview S/p hospitalization [facility] Discharge 08/30/25 DX: COPD exacerbation. NameRelationshipPVanessa Paul RN(Responsible Staff)Registered Nurse [phone] Continued Care and Services Coordination
--- OUTSIDE RECORDS SUMMARY | 2025-09-25 10:58 | XMS_ITS ---
Author Organization [facility] Address [address] [place] [address] Phone Care Team Providers Care Merchandise Appraiser Name Role Phone Supa Lindquist MD PhD Unavailable [phone] Jessica Grove RN Unavailable Unavailable Lisette Perkins BRAKE PRESS OPERATOR-LABOR REPRESENTATIVE Unavailable [phone] Theresa Romano MD PhD Unavailable [phone] Negro Epps MD PhD Unavailable [phone] Power Swain DO Primary Care Provider [phone] Active Problems ProblemNoted DateDiagnosed DateMultiple myeloma not having achieved remission 3392Whhmsgeeiken87/13/2023 Assessment & Plan (08/17/2023 7:42 AM EDT): Due to disease and chemotherapy Transfuse for Hgb < 7 g/dL and platelets < 10 k/uL or bleeding Assessment & Plan (08/14/2023 11:02 AM EDT): :: Due to disease and chemotherapy - Transfuse for Hgb < 7 g/dL and platelets < 10 k/uL or bleeding Azcauhijjmuh27/04/2414Apxadjnwrbrzlj84/04/2023Type 2 diabetes larpznwb85/04/2023 Peripheral dofwmdfhda60/04/2023Multiple spuffiy0608/03/2023 Assessment & Plan (09/28/2023 6:52 PM EST): Referral from Dr. Marinelli at [facility]. MGUS since 2005 Followed at [facility] [...] field this may not be entirely customer counter representative. Also clonal evolution in the marrow [...] Plan, so I will enter these outside Ldilfjcqkz74/19/5159Tlszmkfoannn54/19/0607Rpsclxbqqanrtypnfahoe20/19/2023 Immunodeficiency ekzdohns81/06/2021 Assessment & Plan (02/14/2024 6:23 PM EDT): Infection prophylaxis VZV: Acyclovir 400 mg PO BID PJP: Trimethoprim-sulfamethoxazole 800-160 mg PO 3x weekly Hypogammaglobulinemia IVIG given 09/22/23, 10/29/23 ([facility]) 12/08/23 01/12/24 02/12/24. Cont monthly. Assessment & Plan (01/28/2024 12:26 PM EDT): Infection prophylaxis VZV: Acyclovir 400 mg PO BID PJP: Trimethoprim-sulfamethoxazole 800-160 mg PO 3x weekly Hypogammaglobulinemia IVIG given 09/22/23, 10/29/23 ([facility]) 12/08/23 and 01/12/24. Cont monthly. Assessment & Plan (01/14/2024 10:27 AM EDT): Infection prophylaxis VZV: Acyclovir 400 mg PO BID PJP: Trimethoprim-sulfamethoxazole 800-160 mg PO 3x weekly Hypogammaglobulinemia IVIG given 09/22/23, 10/29/23 ([facility]) and 12/08/23. Plan next today 01/12/24. Assessment & Plan (01/03/2024 11:33 AM EST): Infection prophylaxis VZV: Acyclovir 400 mg PO BID PJP: Trimethoprim-sulfamethoxazole 800-160 mg PO 3x weekly Hypogammaglobulinemia IVIG given 09/22/23, 10/29/23 ([facility]) and 12/08/23. Plan next dose 01/05/24. Assessment & Plan (11/28/2023 4:08 PM EST): Infection prophylaxis VZV: Acyclovir 400 mg PO BID PJP: Trimethoprim-sulfamethoxazole 800-160 mg PO 3x weekly Hypogammaglobulinemia IVIG given 09/22/23 and 10/29/23 ([facility]) Plan next dose 12/08/23 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)07/11/2019 Primary localized osteoarthrosis of ankle and foot06/01/2019Chronic obstructive pulmonary coacrgt8204/19/2019Smoldering szetoac6204/19/2019Thoracic aortic aneurysm without pkcgkba9004/15/2019GERD (gastroesophageal reflux disease)04/07/2018Morbid txfrqkc9511/11/2017Familial umvftrtwqignrqzkettg48/12/2015Thrombocytopenia 05/31/2014Sleep apnea04/15/2006Monoclonal xlcxfxgdhnxghby95/25/2006 Current Treatment and Therapy Plans Blood Products, [...] of 13 cycles startedTeclistamab (Weekly), 28 Day Svorit28/* teclistamab-cqyv (Tecvayli) Change in Level of CareSupa Lindquist MD PhD2 of 3 cycles started Resolved Problems ProblemNoted DateDiagnosed DateResolved DateImmunosuppressed ptfnbg9908/14/2023 11/27/2023 Assessment & Plan (11/18/2023 12:39 PM EST): Infection prophylaxis VZV: Continue acyclovir 400 mg PO BID PJP: Continue trimethoprim-sulfamethoxazole 800-160 mg PO 3x weekly Hypogammaglobulinemia IVIG given 09/22/23 and 10/29/23 ([facility]) Assessment & Plan (08/17/2023 7:42 AM EDT): - VZV: Continue acyclovir 400 mg PO BID - PJP: Continue trimethoprim-sulfamethoxazole 800-160 mg PO 3x weekly Assessment & Plan (08/14/2023 10:20 AM EDT): - VZV: Continue acyclovir 400 mg PO BID - PJP: Continue trimethoprim-sulfamethoxazole 800-160 mg PO 3x weekly Multiple myeloma, remission status rwirhyjbskm63Obesity, Class III, BMI 40-49.9 (morbid obesity)typical chest pain Vitamin D hwuxcfzmjn42
--- OUTSIDE RECORDS SUMMARY | 2025-09-25 10:58 | XMS_ITS | Clinical Summary ---
Author Organization [facility] Address [address] [place] [address] Care Team Providers Care Lining Layer Name Role Phone Vitaliy Thomson MD Primary Care Provider [phone] Daniella Lima KAIWHAKAHAERE Unavailable [phone] Allergies Active AllergyReactionsCriticalityNoted DateCommentsAdhesiveOther: See Comments 05/15/20160631FmbbumenrppMesgokdj08/16/1537SdgcrrmfxwaYdqspyi37/22/2014Erythromycin Hives10/31/2013LatexOther: See Qlperrqj23/12/6625IlreapcaoivnFbytm00/24/2019 PlateletsOther: See Jhogrvdh29/20/2019 Throat Swelling; likely angioedema TetracyclineOther: See Fjknxkii90/12/2019Doxycycline XyondfaGoretpti31/16/2006 Diclofenac TgmgypUxfuu76/24/2019 Medications MedicationSigDispense QuantityRefillsLast FilledStart DateEnd DateStatus ADVAIR [...] 2 UNITS FOR GLUCOSE LEVELS GREATER THAN 6042301/24/2022ctive semaglutide (OZEMPIC) 0.25 mg or 0.5 mg(2 [...] vitamin B-12, 1,000 mcg cap 1,000 mcg.09/15/2018Active Active Problems ProblemNoted DateDiagnosed Date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)07/11/2019Obesity, Class III, BMI >= 4006Atypical chest pain04/19/2019Diabetes mellitus type 2, controlled, without complications 04/19/2019Thoracic ascending aortic kawfglkr03/18/2019COPD (chronic obstructive pulmonary disease)04/19/2019GERD (gastroesophageal reflux disease)04/19/2019 Smoldering ynpuoea2604/19/20196742Qoggfesztnhcgkiv68/30/2014Generalized osteoarthrosis, unspecified site04/15/2006Unspecified vitamin D deficiency 04/15/2006Sleep apnea04/15/2006Monoclonal zyrcdqqamtfpuwj13/25/2006Myalgia and myositis, jgmijzgrehm03/25/2006 Encounters DateTypeDepartmentCare NyrqTmwxvdxmokn85/16/2025 4:20 PM EDTOffice Visit Cardiology [address] [place] [address] Juan J Mendez MD Aneurysm of ascending aorta without rupture (Primary Dx); Essential hypertension; Hyperlipidemia, unspecified hyperlipidemia type; Obesity, Class III, BMI >= 40; 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) (HCC); Smoldering oiinnru8808/17/2025Travelfrom Last 3 Months Family History Medical HistoryRelationCommentsEmphysemaFatherHeartFatherCancerMothercolon at age 79Coronary Artery DiseaseMotherRelationStatusCommentsFatherMother Social History Tobacco UseTypesPacks/DayYears UsedDateSmoking Tobacco: MtzilaTwcquvlzqy395 07/25/1986 - 07/25/2009Smokeless Tobacco: NeverAlcohol UseStandard Drinks/Week CommentsNo0 (1 standard drink = 0.6 oz pure alcohol)PHQ-2AnswerDate RecordedPHQ2 Xlzyk599Area Deprivation IndexAnswerDate RecordedNational Score (1-100), lower number is lower oice910204/13/2023State Score (1-10), lower number is lower nhrn5463Data from: https://www.neighborhoodatlas.medicine.[facility].edu/. Last address used for [address] 3CommentsNoSex and Gender InformationValueDate RecordedSex Assigned at BirthNot on fileLegal Sex Wyxsfw9610/03/2012 8:01 AM ESTGender IdentityNot on fileSexual OrientationNot on file Last Filed Vital Signs Vital SignReadingTime TakenCommentsBlood Nwghvytr141/7608/17/2025 4:10 PM EDT Wmjgq333808/17/2025 4:10 PM XGTSwbtepmrevv06.6 ??C (97.8 ??F)07/11/2019 8:08 AM EDTRespiratory Gbbp198311/29/2019 10:44 AM ESTOxygen Ftyqmapfjw88%07/11/2019 8:08 AM EDTInhaled Oxygen Concentration--Faqsgk74.8 kg (186 lb 15.2 oz)08/17/2025 4:10 PM DGTBmbdsl768.5 cm (5' 2 )08/17/2025 4:10 PM EDTBody Mass Index34.19 08/17/2025 4:10 PM EDT Plan of Treatment DateTypeDepartmentCare Team (Latest Contact Info)Govamuvvvpd61/22/2026 2:00 PM EDTOffice Visit Cardiology [address] [place] [address] [place] [address] [place], [place] [address] Return in about 8 months (around 04/17/2026).Health MaintenanceDue DateLast Done CommentsDiabetic Foot Exam1967Dilated Retinal Exam1967Annual PCP Team Chronic Disease Visit1975Anxiety Zpgkckrpa02/10/1975Depression Uwdzqwqbq94/10/1975DTaP,Tdap,Td Vaccine (1 - Tdap)1976Hepatitis A Vaccine (1 of 2 - Risk 2-dose series)1976CT Ptvjkvcotmzd83/10/2002Cologuard (FIT-DNA)2002Fecal Occult Blood09/11/20024729Ozxblakegyjtv47/10/2002Shingrix Vaccine (1 of 2)2007Medicare Annual Wellness Visit08/02/2008Hepatitis B Vaccine (1 of 3 - Risk 3-dose series)09/11/20171454Zkjpjqskawv86 Colorectal Cancer Iwjpxptba86/14/2019Pneumococcal Vaccine: 50+ (3 of 3 - PCV20 or PCV21)/01/2017, 07/16/2015Mammogram Zqycwvvun42/15/2023 10/16/2022, 10/16/2022, 04/06/2020, Additional history existsAdvance Directive Rxjhduoibh17/01/2025Covid-19 Vaccine ( season)/, 06/19/2021, 05/28/2021Influenza Vaccine (#1)/, 09/12/2019, 10/14/2018, Additional history existsLDL Sigigpnodel67, 11/14/2019Urine Albumin:Creatinine RatioHbA1C11/22/2025 05/22/2025, 06/20/2024, 08/04/2023, Additional history existsHepatitis C MhljykhmyWdstpxhrv35/24/2019, 04/22/2019, 03/17/2006Bone Density Screening Chjkbcurl77/27/2023RSV BmcgpofXhvwlglky97/17/2024 Goals GoalPatient Goal TypeAssociated ProblemsRecent ProgressPatient-Stated?Author Blood Pressure < 130/80 Blood Xlqlheln025/76(08/17/2025 4:10 PM EDT)Juan J Perez MD Procedures Procedure NamePriorityDate/TimeAssociated DiagnosisCommentsECG COMPLETERoutine 08/17/2025 4:08 PM EDT Aneurysm of ascending aorta without rupture Essential hypertension Hyperlipidemia, unspecified hyperlipidemia type Obesity, Class III, BMI >= 40 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) (HCC) Smoldering myeloma ECG HSZRLMEL50/16/2025 4:08 PM EDTLVEF TRANSTHORACIC XNENJfhiluf87/16/2025 3:22 PM EDT LSQOFepdulf73/16/2025 3:22 PM EDT Nonrheumatic aortic valve stenosis Aneurysm of ascending aorta without rupture LIPID PANEL, AHLGKOUJzckico85/13/2020 10:13 AM EST Atypical chest pain Thoracic ascending aortic aneurysm (HCC) Abnormal stress test Coronary artery disease involving tanacross coronary artery of tanacross heart without angina pectoris *HEP C RHIlchnli24/24/2019 1:12 PM EDT Cirrhosis of liver without ascites, unspecified hepatic cirrhosis type (HCC) from Last 3 Months or Most Recently Relevant to Health Maintenance Results * ECG COMPLETE (08/17/2025 4:08 PM EDT)ComponentValueRef RangeTest Method Analysis TimePerformed AtPathologist SignatureVentricular Mfok54OKZMOGRZ AND VASCULAR INSTITUTEAtrial Qpbw03INDWVFYC AND VASCULAR INSTITUTEP-R Qgvdliqs880 msHEART AND VASCULAR INSTITUTEQRS Efcekzzi63cnFMDGQ AND VASCULAR INSTITUTEQT Zbpmbjgm509yuEDEGT AND VASCULAR INSTITUTEQTC Calculation (Bazett)422msHEART AND VASCULAR INSTITUTECalculated P Bwvd05xsorgyoMTSGJ AND VASCULAR INSTITUTE Calculated R Martinez-4degreesHEART AND VASCULAR INSTITUTECalculated T Axis36 degreesHEART AND VASCULAR INSTITUTESpecimen (Source)Anatomical Location / LateralityCollection Method / VolumeCollection TimeReceived Time08/17/2025 4:08 PM EDT Impressions [facility] - 08/19/2025 11:45 AM EDT NORMAL SINUS RHYTHM Confirmed by ARNULFO HENDERSON M.D. ([id number]) on 08/19/2025 11:45:15 AM Narrative [facility] - 08/19/2025 11:45 AM EDT NAME : MOJGAN SNIDER PID : [id number] : 1955 Gender : Female Race : ORD : [id number] Procedure Date : Aug 17 2025 16:08:55 [...] CodePhone Number [facility] [address] [phone] * ECHO (08/17/2025 3:22 PM EDT)Specimen (Source)Anatomical [...] * * * Final * * * [facility] - 08/17/2025 5:30 PM EDT Echocardiography Report: Transthoracic Echo [facility] Date of service: 08/17/2025 3:22:40 PM AND MISCELLANEOUS REMITTANCE CLERK Ordering physician: JUAN J MENDEZ Exam indication: [...] effusion. Authorizing ProviderResult TypeResult StatusMark E Andrea GORDONOFinal Result Performing OrganizationAddressCity/State/ZIP CodePhone Number [facility] [address] [place] [address] * LVEF TRANSTHORACIC ECHO (08/17/2025 3:22 PM EDT)ComponentValueRef RangeTest MethodAnalysis TimePerformed AtPathologist SignatureLV Ejection Mdpkvzrc62% HEART AND VASCULAR INSTITUTEComment: (2D biplane) EF > 54 An LV Ejection Fraction of > 50% is normal Specimen (Source)Anatomical Location / LateralityCollection Method / Volume Collection TimeReceived Time08/17/2025 3:22 PM EDT Narrative Authorizing ProviderResult TypeResult StatusMark E Andrea MDLVEF RESULTSFinal ResultPerforming OrganizationAddressCity/State/ZIP CodePhone Number [facility] [address] [phone] * LIPID PANEL BASIC (11/14/2019 10:13 AM EST)ComponentValueRef RangeTest Method Analysis TimePerformed AtPathologist SignatureCholesterol, Scruy336<200 mg/dL 11/14/2019 11:05 AM [facility] [place] FaucweijkcBvrycbwkezpk521<150 mg/dL 11/14/2019 11:05 [facility] LaboratoryHDL Ntxuktynqsv53>39 mg/dL 11/14/2019 11:05 [facility] LaboratoryLDL Cholesterol, Ewmhlrwfao56 <100 mg/dL11/14/2019 11:05 AM [facility] [place] LaboratoryComment: <100 mg/dL, Optimal 100-129 mg/dL, Near optimal/above optimal 130-159 mg/dL, Borderline high 160-189 mg/dL, High >189 mg/dL, Very high Secondary prevention optimal LDL Cholesterol levels are recommended to be < 70 mg/dL Non HDL Yivdwusnjtp67<130 mg/dL11/14/2019 11:05 AM [facility] [place] Laboratory Comment: <130 mg/dL, Optimal 130-159 mg/dL, Near optimal/above optimal 160-189 mg/dL, Borderline high 190-219 mg/dL, High >219 mg/dL, Very high Secondary prevention optimal non HDL Cholesterol levels are recommended to be < 100 mg/dL Fasting Rrug03bxc68/13/2020 10:15 AM [facility] [place] LaboratoryVLDL Cholesterol 22<30 mg/dL11/14/2019 11:05 [facility] LaboratoryTC:HDL Ratio2.28<5.10 11/14/2019 11:05 [facility] LaboratoryLDL:HDL Ratio0.84<2.54011/14/2019 11:05 AM [facility] [place] LaboratoryComment: Reference: 1. National Cholesterol Education Program ATP III Guideline At-A-Glance Quick Desk Reference: National Heart, Lung, and Blood [place]. National Institutes of Health. 2001: NIH Publication No. 01-3305. 2. An International Atherosclerosis Society position paper: global recommendations for the management of dyslipidemia: executive summary, Atherosclerosis. 2014: 232(2):410-413. Specimen (Source)Anatomical Location / LateralityCollection Method / Volume Collection TimeReceived TimeBlood specimen (specimen)BLOOD SPECIMEN / Unknown 11/14/2019 10:13 AM EST11/14/2019 10:15 AM EST Narrative Authorizing ProviderResult TypeResult StatusMark Roberto Mendez MDLABORATORYFinal ResultPerforming OrganizationAddressCity/State/ZIP CodePhone Number [facility] [address] [place] [address], [facility] * HEP REMOTE PANEL BL (05/25/2019 1:12 PM EDT)ComponentValueRef RangeTest Method Analysis TimePerformed AtPathologist SignatureHep B Core Ab, TotalNegative Wkxqgiym92/25/2019 1:25 PM EDTClevelMadison Health LaboratoriesHep C Antibody IA ObuonbxzEnpmemxw43/25/2019 1:27 PM EDTCCleveland Clinic Foundation LaboratoriesHBsAg JvrlwvcqJtmfttfc53/25/2019 1:25 PM EDTCCleveland Clinic Foundation LaboratoriesHep B Surface Ab, UkfzXqylziklBrvskstw43/25/2019 1:26 PM EDTClevelMadison Health LaboratoriesComment:NEGATIVESpecimen (Source)Anatomical Location / Laterality Collection Method / VolumeCollection TimeReceived TimeBlood specimen (specimen)BLOOD SPECIMEN / Qefakap2205/25/2019 1:12 PM EDT05/25/2019 1:14 PM EDT Narrative Authorizing ProviderResult TypeResult StatusJesserlin Yanez SECURITIES UNDERWRITER.CNPLABORATORY Final ResultPerforming OrganizationAddressCity/State/ZIP CodePhone Number [facility] [address] [place] [address] [facility] [address] [place] [address] from Last 3 Months or Most Recently Relevant to Health Maintenance Insurance * Guarantor: Mojgan Sniderount TypeRelation to PatientDate of BirthPhone Billing PoowonaTcschdslmtRdbp1955 [address] [place] [address] Care Teams Team MemberRelationshipSpecialtyStart DateEnd Date Vitaliy Thomson MD [address] [place] [address] PCP - [facility]01/22/15 Daniella Lima NP [address] [place] [address] [facility]04/18/19
--- OUTSIDE RECORDS SUMMARY | 2025-09-25 10:58 | XMS_ITS | Encounter Summary ---
Author Organization [facility] Address [address], [address] [place] [address] Care Team Providers Care Value Advisor Name Role Phone Power Swain DO Primary Care Provider [phone] Encounter Details DateTypeDepartmentCare Team (Latest Contact Info)Blvcwkkinkm43/19/2025Telephone [facility] [address] [place] [address] [address] [place] [address] [facility] Hospital[facility] [address] [place] [address] Social History Tobacco UseTypesPacks/DayYears UsedDateSmoking Tobacco: HcbcurBafefwucdq5146900 - 2005Smokeless Tobacco: NeverAlcohol UseStandard Drinks/WeekCommentsNever0 (1 standard drink = 0.6 oz pure alcohol)CommentsUnknownSex and Gender InformationValueDate RecordedSex Assigned at PnnfvWbilll76/03/2025 12:27 PM EST Legal MxxDnnhqz45/10/2013 1:13 PM ESTGender LeidohzqSplewy46/03/2025 12:27 PM ESTSexual QcffftjanezTpaaqoet37/03/2025 12:27 PM ESTdocumented as of this encounter Plan of Treatment DateTypeDepartmentCare Team (Latest Contact Info)Kjlaaeozooc83/09/2025 2:30 PM ESTOffice Visit [facility] [address] [place] [address] Loyd Raymundo DO [address] [place] [address] Return in about 4 weeks (around 10/02/2025) for COPD.documented as of this encounter Visit Diagnoses Not on filedocumented in this encounter Additional Health Concerns AssessmentNoted TimeA fall risk assessment has been completed for the patient 09/04/2025 11:23 AM ESTdocumented as of this encounter Care Teams Team MemberRelationshipSpecialtyStart DateEnd Date Power Swain DO [address] [place] [address] PCP - Obgozaz56/3/25documented as of this encounter
--- OUTSIDE RECORDS SUMMARY | 2025-09-25 10:58 | XMS_ITS | Encounter Summary ---
Author Organization [facility] Address [address] [place] [address] Care Team Providers Care Pantograph Machine Set Up Operator Name Role Phone Vitaliy Thomson MD Unavailable [phone] Sima Paul RN Unavailable [phone] Power Swain DO Primary Care Provider [phone] Encounter Details DateTypeDepartmentCare Team (Latest Contact Info)Rcjuirbkdwy92/18/2025External Result Encounter [facility] External Department Unsolicited Fabiola Marinelli MD [address] [place] [address] Social History Tobacco UseTypesPacks/DayYears UsedDateSmoking [...] on one occasion?Never06/15/2025PHQ-2AnswerDate Recorded Patient Health Questionnaire-2 Ezbgi05111/11/2024CommentsNoSex and Gender InformationValueDate RecordedSex Assigned at BirthNot on fileLegal SexFemale 01/14/2023 6:38 PM EDTGender IdentityNot on fileSexual OrientationNot on file OccupationIndustryJob Start DateJob End DateRetiredNot on fileNot on fileNot on filedocumented as of this encounter Plan of Treatment DateTypeDepartmentCare Team (Latest Contact Info)Oavyugjnrdz05/08/2025 9:40 AM ESTOffice Visit [facility] [address], [address] [place] [phone] Power Swain, DO [address] [place] [address] documented as of this encounter Procedures Procedure NamePriorityDate/TimeAssociated DiagnosisCommentsIRON AND TOTAL IRON BINDING VEYVGPCFYrdeavd45/18/2025 10:00 AM EST REEWDPZOPxvaerx40/18/2025 10:00 AM EST COMPREHENSIVE METABOLIC PPRUBAcoxcex96/18/2025 10:00 AM EST documented in this encounter Results * Ferritin (09/19/2025 10:00 AM EST)ComponentValueRef RangeTest MethodAnalysis TimePerformed AtPathologist OejpcemgvMXKXNCKS290.411.0 - 306.8 ng/mL09/19/2025 11:21 AM [facility] CtrSpecimen (Source)Anatomical Location / LateralityCollection Method / VolumeCollection TimeReceived TimeOther Topography unknown / Xsknpwy9109/19/2025 10:00 AM EST09/19/2025 10:19 AM EST Narrative Authorizing ProviderResult TypeResult StatusFabiola Marinelli MDLAB BLOOD ORDERABLES Final ResultPerforming OrganizationAddressCity/State/ZIP CodePhone Number [facility] [address] [place] [address], [facility] [address] [place] [address] * (ABNORMAL) Iron and TIBC (09/19/2025 10:00 AM EST)ComponentValueRef RangeTest MethodAnalysis TimePerformed AtPathologist JmcumxwgdJSXO0572 - 212 ug/dL 09/19/2025 11:02 AM [facility] CtrTOTAL IRON BINDING FHDOJJAO098(L)255 - 450 ug/dL09/19/2025 11:02 AM [facility] Ctr% IRON XJCWHOLSCV11.320 - 50 %09/19/2025 11:02 AM [facility] ZzsYJKOTOLMRXG011(L)203 - 362 mg/dL09/19/2025 11:02 AM [facility] CtrSpecimen (Source)Anatomical Location / Laterality Collection Method / VolumeCollection TimeReceived TimeOtherTopography unknown / Jgpwyko1809/19/2025 10:00 AM EST09/19/2025 10:19 AM EST Narrative Authorizing ProviderResult TypeResult StatusFabiola Marinelli MDLAB BLOOD ORDERABLES Final ResultPerforming OrganizationAddressCity/State/[facility] CodePhone Number [facility] [address] [place] [address], [facility] [address] [place] [address] * (ABNORMAL) Comprehensive metabolic panel (09/19/2025 10:00 AM EST)Component ValueRef RangeTest MethodAnalysis TimePerformed AtPathologist SignatureGlucose 199(H)70 - 100 mg/dL09/19/2025 11:02 AM [facility] Ctr Comment: Random Glucose Reference Range is dependent on time and content of last meal. Glucose of more than 200 mg/dL in a nonstressed, ambulatory subject supports the diagnosis of Diabetes Mellitus. ADA recommended reference range KEA292 - 25 mg/dL09/19/2025 11:02 AM [facility] CtrCREATININE 0.870.60 - 1.20 mg/dL09/19/2025 11:02 AM [facility] Ctr ESTIMATED GFR>60. 11:02 AM [facility] CfpAuanvp142 (L)136 - 145 mmol/L111/19/2024 11:02 AM [facility] Ctr Potassium, Bld4.03.5 - 5.1 mmol/L111/19/2024 11:02 AM [facility] OmjQkdppbwr82950 - 107 mmol/L111/19/2024 11:02 AM [facility] CtrCarbon Jmlkdmf65.021.0 - 31.0 mmol/L111/19/2024 11:02 AM [facility] CtrAnion Gap9.06.0 - 15.011 11:02 AM [facility] CtrCalcium7.7(L)8.6 - 10.3 mg/dL09/19/2025 11:02 AM [facility] CtrTOTAL PROTEIN5.5(L)6.4 - 8.9 g/dL09/19/2025 11:02 AM [facility] CtrALBUMIN LEVEL3.3(L)3.5 - 5.7 g/dL09/19/2025 11:02 AM [facility] CtrGLOBULIN2.2g/dL09/19/2025 11:02 AM [facility] CtrALBUMIN/GLOBULIN RATIO1.511 11:02 AM [facility] CtrBILIRUBIN,TOTAL1.3(H)0.3 - 1.0 mg/dL09/19/2025 11:02 AM [facility] CtrComment: Samples from patients who have taken Naproxen have shown spurious elevation in Total Bilirubin levels. ??A metabolite of Naproxen, O-desmethylnaproxen, has been shown to interfere with the Shanon-Felicitas method for measuring Total Bilirubin. ASPARTATE AMINO SBUPUWKTMVN9200 - 39 U/L111/19/2024 11:02 AM [facility] CtrALANINE QWHONUHQSROPZYSC692 - 52 U/L111/19/2024 11:02 AM [facility] CtrALKALINE AKNAPUHRCVW376(H)34 - 104 U/L111/19/2024 11:02 AM [facility] CtrCREATININE CLR CALC AAXTWTRQ37.99 09/19/2025 11:02 AM [facility] CtrSpecimen (Source)Anatomical Location / LateralityCollection Method / VolumeCollection TimeReceived TimeOther Topography unknown / Qcjqlhh4109/19/2025 10:00 AM EST09/19/2025 10:19 AM EST Narrative Authorizing ProviderResult TypeResult StatusFabiola Marinelli MDLAB BLOOD ORDERABLES Final ResultPerforming OrganizationAddressCity/State/ZIP CodePhone Number [address] [place] [address], [facility]tr [address] [facility] [place] [address] documented in this encounter Visit Diagnoses Not on filedocumented in this encounter Additional Health Concerns AssessmentNoted TimePHQ-9 Depression Total Score: 9:00 AM EST documented as of this encounter Care Teams Team MemberRelationshipSpecialtyStart DateEnd Date Vitaliy Thomson MD [address] [place] [address] PCP - ACO Reach03/26/23 Power Swain DO [address] [place] [address] [place] [address] PCP - GeneralFamily Medicine04/25/25 Sima Paul RN [address] [place] [address] Registered NurseFamily Pfjomudg59/23/23documented as of this encounter
--- OUTSIDE RECORDS SUMMARY | 2025-09-25 10:58 | XMS_ITS | Encounter Summary ---
Author Organization [facility] Address [address], [address] [place] [address] Care Team Providers Care Rewind Operator Name Role Phone Power Swain DO Primary Care Provider [phone] Encounter Details DateTypeDepartmentCare Team (Latest Contact Info)Dlakmaapjsz82/10/2025Abstract [facility] Pulmonology [address] [facility] [address] [place] [address] Loyd Raymundo [address] [place] [address] Social History Tobacco UseTypesPacks/DayYears UsedDateSmoking Tobacco: OlbjabEhufihdcfv4934220 - 2005Smokeless Tobacco: NeverAlcohol UseStandard Drinks/WeekCommentsNever0 (1 standard drink = 0.6 oz pure alcohol)CommentsUnknownSex and Gender InformationValueDate RecordedSex Assigned at DbalfWkijvo37/03/2025 12:27 PM EST Legal KnkTvpdmf35/10/2013 1:13 PM ESTGender YxbcoucmKmmivh67/03/2025 12:27 PM ESTSexual BlxcmkcikdtGuuxfiro90/03/2025 12:27 PM ESTdocumented as of this encounter Plan of Treatment DateTypeDepartmentCare Team (Latest Contact Info)Urxbbalkyuo29/09/2025 2:30 PM ESTOffice Visit [facility] Pulmonology [address] [place] [address] [address] [place] [address] Loyd Raymundo DO [address] [facility] [address] [place] [address] Return in about 4 weeks (around 10/02/2025) for COPD.documented as of this encounter Visit Diagnoses Not on filedocumented in this encounter Additional Health Concerns AssessmentNoted TimeA fall risk assessment has been completed for the patient 09/04/2025 11:23 AM ESTdocumented as of this encounter Care Teams Team MemberRelationshipSpecialtyStart DateEnd Date Power Swain DO [address] [place] [address] PCP - Pfxuawf52/3/25documented as of this encounter
--- OUTSIDE RECORDS SUMMARY | 2025-09-25 10:58 | XMS_ITS | Encounter Summary ---
Author Organization [facility] Address [address] [facility], [address] [place] [address] Care Team Providers Care Courtesy Car Driver Name Role Phone Power Swain DO Primary Care Provider [phone] Encounter Details DateTypeDepartmentCare Team (Latest Contact Info)Hqdnotnwgte12/19/2025Abstract [facility] [address] [facility] [address] [place] [id number] Loyd Raymundo [address] [facility] [address] [place] [address] Social History Tobacco UseTypesPacks/DayYears UsedDateSmoking Tobacco: QtlphpVrgwosvzoc6011260 - 2005Smokeless Tobacco: NeverAlcohol UseStandard Drinks/WeekCommentsNever0 (1 standard drink = 0.6 oz pure alcohol)CommentsUnknownSex and Gender InformationValueDate RecordedSex Assigned at NqhghXsvijz07/03/2025 12:27 PM EST Legal WuiSvjgoj68/10/2013 1:13 PM ESTGender UwcsfdxlUgknvh59/03/2025 12:27 PM ESTSexual CsmfyredsseYrrgjsky57/03/2025 12:27 PM ESTdocumented as of this encounter Plan of Treatment DateTypeDepartmentCare Team (Latest Contact Info)Caobbuumkjn15/09/2025 2:30 PM ESTOffice Visit [facility] Pulmonology [address] [facility] [address] [place] [address] Loyd Raymundo DO [address] [facility] [address] [place] [address] Return in about 4 weeks (around 10/02/2025) for COPD.documented as of this encounter Visit Diagnoses Not on filedocumented in this encounter Additional Health Concerns AssessmentNoted TimeA fall risk assessment has been completed for the patient 09/04/2025 11:23 AM ESTdocumented as of this encounter Care Teams Team MemberRelationshipSpecialtyStart DateEnd Date Power Swain DO [address] [place] [address] PCP - Eqstacq10/3/25documented as of this encounter
--- OUTSIDE RECORDS SUMMARY | 2025-09-25 10:59 | XMS_ITS | Encounter Summary ---
Author Organization [facility] Address [address] [place] [address] Care Team Providers Care Installations Inspector Name Role Phone Vitaliy Thomson MD Unavailable [phone] Sima Paul RN Unavailable [phone] Power Swain DO Primary Care Provider [phone] Encounter Details DateTypeDepartmentCare Team (Latest Contact Info)Uhtnesirvmx15/11/2025External Result Encounter [facility] External Department Unsolicited Fabiola Marinelli MD [address] [place] [address] Social History Tobacco UseTypesPacks/DayYears UsedDateSmoking [...] on one occasion?Never06/15/2025PHQ-2AnswerDate Recorded Patient Health Questionnaire-2 Fzwhq52011/11/2024CommentsNoSex and Gender InformationValueDate RecordedSex Assigned at BirthNot on fileLegal SexFemale 01/14/2023 6:38 PM EDTGender IdentityNot on fileSexual OrientationNot on file OccupationIndustryJob Start DateJob End DateRetiredNot on fileNot on fileNot on filedocumented as of this encounter Plan of Treatment DateTypeDepartmentCare Team (Latest Contact Info)Uuiaxyhdczv10/08/2025 9:40 AM ESTOffice Visit [facility] [address], [address] [place] [address] Power Swain, DO [address] [place] [address] documented as of this encounter Procedures Procedure NamePriorityDate/TimeAssociated DiagnosisCommentsCOMPREHENSIVE METABOLIC GKFTBDESK86/11/2025 9:25 AM EST documented in this encounter Results * (ABNORMAL) Comprehensive metabolic panel (09/12/2025 9:25 AM EST)Component ValueRef RangeTest MethodAnalysis TimePerformed AtPathologist SignatureGlucose 173(H)70 - 100 mg/dL09/12/2025 10:01 AM [facility] Ctr Comment: Random Glucose Reference Range is dependent on time and content of last meal. Glucose of more than 200 mg/dL in a nonstressed, ambulatory subject supports the diagnosis of Diabetes Mellitus. ADA recommended reference range ZJO000 - 25 mg/dL09/12/2025 10:01 AM [facility] CtrCREATININE 0.990.60 - 1.20 mg/dL09/12/2025 10:01 AM [facility] Ctr ESTIMATED GFR>60. 10:01 AM [facility] GbxJudgfb724 136 - 145 mmol/L111/12/2024 10:01 AM [facility] CtrPotassium, Bld4.43.5 - 5.1 mmol/L111/12/2024 10:01 AM [facility] Ctr Syiwknto48797 - 107 mmol/L111/12/2024 10:01 AM [facility] Ctr Carbon Ekibumo09.521.0 - 31.0 mmol/L111/12/2024 10:01 AM [facility] CtrAnion Gap12.96.0 - 15.011 10:01 AM [facility] CtrCalcium9.08.6 - 10.3 mg/dL09/12/2025 10:01 AM [facility] CtrTOTAL PROTEIN5.2(L)6.4 - 8.9 g/dL09/12/2025 10:01 AM [facility] CtrALBUMIN LEVEL3.53.5 - 5.7 g/dL09/12/2025 10:01 AM [facility] CtrGLOBULIN1.7g/dL09/12/2025 10:01 AM [facility] CtrALBUMIN/GLOBULIN RATIO2.111 10:01 AM [facility] CtrBILIRUBIN,TOTAL2.0(H)0.3 - 1.0 mg/dL09/12/2025 10:01 AM [facility] CtrComment: Samples from patients who have taken Naproxen have shown spurious elevation in Total Bilirubin levels. ??A metabolite of Naproxen, O-desmethylnaproxen, has been shown to interfere with the Shanon-Felicitas method for measuring Total Bilirubin. ASPARTATE AMINO THDURCLHMQN7711 - 39 U/L111/12/2024 10:01 AM [facility] CtrALANINE CWFMOKHVJKLCJSGS746 - 52 U/L111/12/2024 10:01 AM [facility] CtrALKALINE GPDIEWMYSAN45676 - 104 U/L111/12/2024 10:01 AM [facility] CtrCREATININE CLR CALC FBIEZBZM35.26 09/12/2025 10:01 AM [facility] CtrSpecimen (Source)Anatomical Location / LateralityCollection Method / VolumeCollection TimeReceived TimeOther Topography unknown / Psjjpyz8809/12/2025 9:25 AM EST09/12/2025 9:35 AM EST Narrative Authorizing ProviderResult TypeResult StatusFabiola Marinelli MDLAB BLOOD ORDERABLES Final ResultPerforming OrganizationAddressCity/State/ZIP CodePhone Number [facility] [address] [place] [address], [facility] Ctr [address] [place] [address] documented in this encounter Visit Diagnoses Not on filedocumented in this encounter Additional Health Concerns AssessmentNoted TimePHQ-9 Depression Total Score: 9:00 AM EST documented as of this encounter Care Teams Team MemberRelationshipSpecialtyStart DateEnd Date Vitaliy Thomson MD [address] [place] [address] PCP - ACO Reach03/26/23 Power Swain DO [address] [address] PCP - GeneralFamily Medicine04/25/25 Sima Paul, LES [address] [place] [address] Registered NurseFamily Glyhjlat24/23/23documented as of this encounter
--- OUTSIDE RECORDS SUMMARY | 2025-09-25 10:59 | XMS_ITS | Encounter Summary ---
Author Organization [facility] Address [address] [place] [address] Care Team Providers Care Inhalation Therapist Name Role Phone Vitaliy Thomson MD Unavailable [phone] Sima Paul RN Unavailable [phone] Power Swain DO Primary Care Provider [phone] Encounter Details DateTypeDepartmentCare Team (Latest Contact Info)Quykmhwjyto16/10/2025bstract [facility] Practice [address] [place], [facility] 340 [place] [address] Power Swain DO [address] [facility] [address] [place] [address] Social History Tobacco UseTypesPacks/DayYears UsedDateSmoking Tobacco: FormerCigarettes [...] on one occasion?Never06/15/2025PHQ-2AnswerDate Recorded Patient Health Questionnaire-2 Jubxh86011/11/2024CommentsNoSex and Gender InformationValueDate RecordedSex Assigned at BirthNot [...] 9:50 AM Polina Kirk MAPatient Health Questionnaire-2 Kmhdj21811/11/2024 9:50 AM Polina Kirk MA documented as of this encounter Plan of Treatment DateTypeDepartmentCare Team (Latest Contact Info)Qxtbthsqezq36/08/2025 9:40 AM ESTOffice Visit [facility] [address], [facility] 340 [place] [address] Power Swain DO [address] [facility] 340 [place] [address] documented as of this encounter Visit Diagnoses Not on filedocumented in this encounter Additional Health Concerns AssessmentNoted TimePHQ-9 Depression Total Score: 9:00 AM EST documented as of this encounter Care Teams Team MemberRelationshipSpecialtyStart DateEnd Date Vitaliy Thomson MD [address] [place] [address] PCP - ACO [facility]03/26/23 Power Swain DO [address] [facility] [address] [place] [address] PCP - GeneralFamily Medicine04/25/25 Sima Paul, RN [address] [place] [address] Registered NurseFamily Hoebxyfq28/23/23documented as of this encounter
--- OUTSIDE RECORDS SUMMARY | 2025-09-25 10:59 | XMS_ITS | Encounter Summary ---
Author Organization [facility] Address [address] [facility] [place] [address] Care Team Providers Care Military Communications Specialist Name Role Phone Vitaliy Thomson MD Unavailable [phone] Sima Paul RN Unavailable [phone] Power Swain DO Primary Care Provider [phone] Encounter Details DateTypeDepartmentCare Team (Latest Contact Info)Dksnzzavroe00/11/2025Patient Outreach [facility] POPULATION HEALTH [address] [place] [phone] Sima Paul, RN [address] [place] [address] Social History Tobacco UseTypesPacks/DayYears UsedDateSmoking Tobacco: FormerCigarettes [...] on one occasion?Never06/15/2025PHQ-2AnswerDate Recorded Patient Health Questionnaire-2 Fjawr71711/11/2024CommentsNoSex and Gender InformationValueDate RecordedSex Assigned at BirthNot on fileLegal SexFemale 01/14/2023 6:38 PM EDTGender IdentityNot on fileSexual OrientationNot on file OccupationIndustryJob Start DateJob End DateRetiredNot on fileNot on fileNot on filedocumented as of this encounter Progress Notes * Sima Paul RN - 09/12/2025 12:32 PM EST Weekly call #2, s/p hospitalization [facility] discharge 08/30 DX: COPD exacerbation Pt did have follow up with Pulmonology, Dr. Raymundo 09/04 Pt admits to ongoing symptoms of sob, wheezing. She is not back to her baseline. She is at her infusion today, but unable to receive chemo injection. She followed up with Dr. Swain, who also extended her prednisone. Flowsheet Row Patient Outreach from 09/12/2025 in [facility] with Sima Paul RN Week Number Call Week 2 Call Was patient contacted successfully? Yes Have you had any urgent care/ED/Hospital visits since discharge? No Any medication changes since last contact? Yes If yes, medications reconciled this encounter? Yes Is the patient taking all medications as directed? Yes Have you visited your PCP since discharge? Yes Have you visited your specialist since discharge? Yes What is the patient's perception of their health status since discharge? Same Is the patient/caregiver able to teach back the hierarchy of who to call/visit for symptoms/problems? PCP, Specialist, Home Health nurse, Urgent Care, ED, 911 Yes documented in this encounter Plan of Treatment DateTypeDepartmentCare Team (Latest Contact Info)Ucsdvkxdaiz54/08/2025 9:40 AM ESTOffice Visit [facility] [address] [place], [facility] [address] [place] [phone] Power Swain, [address] [place] [facility] [address] [place] [address] documented as of this encounter Visit Diagnoses Diagnosis Chronic obstructive pulmonary disease, unspecified COPD type (HCC)- Primary Essential hypertension Unspecified essential hypertension documented in this encounter Additional Health Concerns AssessmentNoted TimePHQ-9 Depression Total Score: 9:00 AM EST documented as of this encounter Care Teams Team MemberRelationshipSpecialtyStart DateEnd Date Vitaliy Thomson MD [address] [place] [address] PCP - ACO [facility]03/26/23 Power Swain DO [address] [address] [place] [address] PCP - GeneralFamily Medicine04/25/25 Sima Paul, LES [address] [place] [address] Registered NurseFamily Osrrgtts81/23/23documented as of this encounter
--- OUTSIDE RECORDS SUMMARY | 2025-09-25 10:59 | XMS_ITS | Encounter Summary ---
Author Organization [facility] Address [address] [facility] [place] [address] Care Team Providers Care Stablehand Name Role Phone Vitaliy Thomson MD Unavailable [phone] Sima Paul RN Unavailable [phone] Power Swain DO Primary Care Provider [phone] Encounter Details DateTypeDepartmentCare Team (Latest Contact Info)Ttlhlbvxoap65/18/2025Patient Outreach [facility] [address] [place] [address] Sima Paul, RN [address] [place] [address] Social History Tobacco UseTypesPacks/DayYears UsedDateSmoking Tobacco: FormerCigarettes [...] on one occasion?Never06/15/2025PHQ-2AnswerDate Recorded Patient Health Questionnaire-2 Qzisz41711/11/2024CommentsNoSex and Gender InformationValueDate RecordedSex Assigned at BirthNot on fileLegal SexFemale 01/14/2023 6:38 PM EDTGender IdentityNot on fileSexual OrientationNot on file OccupationIndustryJob Start DateJob End DateRetiredNot on fileNot on fileNot on filedocumented as of this encounter Progress Notes * Sima Paul RN - 09/19/2025 10:11 AM EST Call received from angel, Sima and pt while at cancer center today for tx. Reports pt called office yesterday re: increased cough. Reviewed chart, noted encounter for increased congestion. No notation on cough. Dr. Swain mentions Afrin spray, message left for pt, no further update on encounter. Pt reports she uses nasal spray and denies wanting another. Pt reports her cough is keeping her up and the Tessalon Perles are not working for her at all and never do. She is encouraged to follow up with Pulmonology re:: worsening symptoms. Advised will send to provider for further review. Weekly monitor #3 completed. S/p hospitalization H discharge 08/30 DX: COPD exacerbation Pt did have follow up with Pulmonology on 09/04 She had her prednisone extended with Dr. Swain and Dr. Raymundo. Congestion and Cough continue. NOV with Dr. Raymundo Pulmonology 10/10/[address] Swain 10/09/25 Flowsheet Row Patient Outreach from 09/19/2025 in [facility] with Sima Paul RN Week Number Call Week 3 Call Was patient contacted successfully? Yes Have you had any urgent care/ED/Hospital visits since discharge? No Is the patient taking all medications as directed? Yes Have you visited your PCP since discharge? Yes Have you visited your specialist since discharge? Yes What is the patient's perception of their health status since discharge? Same Is the patient/caregiver able to teach back the hierarchy of who to call/visit for symptoms/problems? PCP, Specialist, Home Health nurse, Urgent Care, ED, 911 Yes * Power Swain DO - 09/19/2025 10:11 AM EST Can you reach out to patient regarding this. I don't have any other options to help with the cough at this point. I would recommend contacting pulmonology office as a new inhaler may be needed documented in this encounter Plan of Treatment DateTypeDepartmentCare Team (Latest Contact Info)Pjuaguiwjkh45/08/2025 9:40 AM ESTOffice Visit [facility] [facility] [address] [place] [address] [place] [address] Power Swain DO [address] [place] [address] [place] [address] documented as of this encounter Visit Diagnoses Diagnosis Essential hypertension- Primary Unspecified essential hypertension Chronic obstructive pulmonary disease, unspecified COPD type (HCC) documented in this encounter Additional Health Concerns AssessmentNoted TimePHQ-9 Depression Total Score: 9:00 AM EST documented as of this encounter Care Teams Team MemberRelationshipSpecialtyStart DateEnd Date Vitaliy Thomson MD [address] [place] [address] PCP - ACO Reach03/26/23 Power Swain DO [address] [facility] [address] [place] [address] PCP - GeneralFamily Medicine04/25/25 Sima Paul, LES [address] [place] [address] Registered NurseFamily Fgtafwvy24/23/23documented as of this encounter
--- OUTSIDE RECORDS SUMMARY | 2025-09-25 10:59 | XMS_ITS | Encounter Summary ---
Author Organization [facility] Address [address] [place] [address] Care Team Providers Care Harness Repairer Name Role Phone Vitaliy Thomson MD Unavailable [phone] Sima Paul RN Unavailable [phone] Power Swain DO Primary Care Provider [phone] Encounter Details DateTypeDepartmentCare Team (Latest Contact Info)Ibtdqphriqc95/19/2025bstract [facility] [address] [place], [facility] 340 [place] [address] Power Swain DO [address] [facility] [address] [place] [address] Social History Tobacco UseTypesPacks/DayYears UsedDateSmoking Tobacco: FormerCigarettes [...] on one occasion?Never06/15/2025PHQ-2AnswerDate Recorded Patient Health Questionnaire-2 Kwbyh34511/11/2024CommentsNoSex and Gender InformationValueDate RecordedSex Assigned at BirthNot on fileLegal SexFemale 01/14/2023 6:38 PM EDTGender IdentityNot on fileSexual OrientationNot on file OccupationIndustryJob Start DateJob End DateRetiredNot on fileNot on fileNot on filedocumented as of this encounter Plan of Treatment DateTypeDepartmentCare Team (Latest Contact Info)Rqrwnsanqve42/08/2025 9:40 AM ESTOffice Visit [facility] [place] [facility] [address], [address] [place] [address] Power Swain DO [address] [facility] 340 [place] [address] documented as of this encounter Visit Diagnoses Not on filedocumented in this encounter Additional Health Concerns AssessmentNoted TimePHQ-9 Depression Total Score: 9:00 AM EST documented as of this encounter Care Teams Team MemberRelationshipSpecialtyStart DateEnd Date Vitaliy Thomson MD [address] [place] [address] PCP - ACO Reach03/26/23 Power Swain DO [address] [facility] 340 [place] [address] PCP - GeneralFamily Medicine04/25/25 Sima Paul, LES [address] [place] [address] Registered NurseFamily Jmwjocep62/23/23documented as of this encounter
--- OUTSIDE RECORDS SUMMARY | 2025-09-25 10:59 | XMS_ITS | Encounter Summary ---
Author Organization [facility] Address [address] [place] [address] Care Team Providers Care Fur Repair Inspector Name Role Phone Vitaliy Thomson MD Unavailable [phone] Sima Paul RN Unavailable [phone] Power Swain DO Primary Care Provider [phone] Encounter Details DateTypeDepartmentCare Team (Latest Contact Info)Zvkvhksdebt67/17/2025External Result Encounter [facility] External Department Unsolicited Fabiola Marinelli MD [address] [place] [address] Social History Tobacco UseTypesPacks/DayYears UsedDateSmoking [...] on one occasion?Never06/15/2025PHQ-2AnswerDate Recorded Patient Health Questionnaire-2 Gktjm54111/11/2024CommentsNoSex and Gender InformationValueDate RecordedSex Assigned at BirthNot on fileLegal SexFemale 01/14/2023 6:38 PM EDTGender IdentityNot on fileSexual OrientationNot on file OccupationIndustryJob Start DateJob End DateRetiredNot on fileNot on fileNot on filedocumented as of this encounter Plan of Treatment DateTypeDepartmentCare Team (Latest Contact Info)Kugyqwibsfh51/08/2025 9:40 AM ESTOffice Visit [facility] [address], [address] [place] [address] Power Swain, DO [address] [place] [address] documented as of this encounter Procedures Procedure NamePriorityDate/TimeAssociated DiagnosisCommentsMR ABDOMEN W AND WO MPHRSYLP39/17/2025 10:03 AM EST documented in this encounter Results * MR [...] ? TRACE ASCITES. ? Impression dictated by: Carroll Sparrow Jr., D.O. ??09/18/2025 10:08 AM ? Dictation Location: RADIO-PC-22 ? Transcribed By: ? PWS ?09/18/25 1008 ? Dictated By: ?Carroll Sparrow Jr, DO ?09/18/25 1003 ? Signed By: <Electronically signed by Carroll Sparrow Jr DO in OV> ?09/18/ 1008 Narrative 09/18/2025 10:10 AM EST [facility] ?[facility] [place] ?[address] ? [place] [address] ? MRI Report ? Signed ? Patient: Snider,Mojgan S ?MR#: [id number] ?? [id number] ? : 1955 ?Acct:[id number] ? Age/Sex: 70 / F ?ADM Date: [...] Note Carroll Sparrow Jr., DO - 09/18/2025 [facility] [place] [address] [place] [address] MRI Report Signed Patient: Mojgan Snider SMR#: [id number] : 1955cct:[id number] Age/Sex: 70 / FADM Date: 09/18/25 Loc: Room:Type: [facility] Attending Dr: Fabiola Marinelli MD Copies [...] has been removed. No CBD dilatation. Splenomegaly javwlmvzh25 cm. Pancreas appears unremarkable. Adrenal glands appear [...] ASCITES. Impression dictated by: Carroll Sparrow Jr., D.OErna 09/18/2025 10:08 AM Dictation Location: [place] [address] Transcribed By: GIOVANNA 09/18/25 1008 Dictated By: Carroll Sparrow Jr, DO 09/18/25 1003 Signed By: <Electronically signed by Carroll Sparrow Jr, DO inOV> 09/18/25 1008 Authorizing ProviderResult TypeResult StatusFabiola Marinelli MDIMClara MRI PROCEDURES Final Result documented in this encounter Visit Diagnoses Not on filedocumented in this encounter Additional Health Concerns AssessmentNoted TimePHQ-9 Depression Total Score: 9:00 AM EST documented as of this encounter Care Teams Team MemberRelationshipSpecialtyStart DateEnd Date Vitaliy Thomson MD [address] [place] [address] PCP - ACO Reach03/26/23 Power Swain DO [address] [place] [address] [place] [address] PCP - GeneralFamily Medicine04/25/25 Sima Paul RN [address] [place] [address] Registered NurseFamily Ipunkoqq99/23/23documented as of this encounter
--- OUTSIDE RECORDS SUMMARY | 2025-09-25 10:59 | XMS_ITS | Encounter Summary ---
Author Organization [facility] Address [address] [place] [address] Care Team Providers Care Political Science Faculty Member Name Role Phone Vitaliy Thomson MD Unavailable [phone] Sima Paul RN Unavailable [phone] Power Swain DO Primary Care Provider [phone] Encounter Details DateTypeDepartmentCare Team (Latest Contact Info)Dpdmjywdbcs74/18/2025External Result Encounter [facility] External Department Unsolicited Fabiola Marinelli MD [address] [place] [address] Social History Tobacco UseTypesPacks/DayYears UsedDateSmoking [...] on one occasion?Never06/15/2025PHQ-2AnswerDate Recorded Patient Health Questionnaire-2 Ndloz05511/11/2024CommentsNoSex and Gender InformationValueDate RecordedSex Assigned at BirthNot on fileLegal SexFemale 01/14/2023 6:38 PM EDTGender IdentityNot on fileSexual OrientationNot on file 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, [place] [address] [place] [address] Power Swain, DO [address] [place] [address] [place] [address] NameTypePriorityAssociated DiagnosesDate/TimeCBC auto differentialLabRoutine 09/19/2025 10:00 AM ESTdocumented as of this encounter Procedures Procedure NamePriorityDate/TimeAssociated DiagnosisCommentsSCAN AND CBCRoutine 09/19/2025 10:00 AM EST documented in this encounter Results * (ABNORMAL) SCAN AND CBC (09/19/2025 10:00 AM EST)ComponentValueRef RangeTest MethodAnalysis TimePerformed AtPathologist SignatureWBC1.2(L)3.8 - 11.6 [CFU]/mL09/19/2025 10:49 AM [facility] CtrUNCORRECTED WHITE BLOOD COUNT1.2(L)3.8 - 11.6 10*3/uL09/19/2025 10:49 AM [facility] CtrRBC3.25(L)3.60 - 5.00 10*6/uL09/19/2025 10:49 AM [facility] NcsFZBUEFTPMH78.0(L)11.8 - 15.4 g/dL09/19/2025 10:49 AM [facility] RpdUYEAFAYIWD76.8(L)34.0 - 46.4 %09/19/2025 10:49 AM [facility] HjwGXK12.080 - 100 fL09/19/2025 10:49 AM [facility] KmzAUD47.824.7 - 34.3 pg09/19/2025 10:49 AM [facility] AueNECX42.532.0 - 35.0 g/dL09/19/2025 10:49 AM [facility] CtrRED CELL DISTRIBUTION WIDTH, RDW20.1(H)11.9 - 15.3 %09/19/2025 10:49 AM [facility] CtrPLATELET COUNT45(L) 150 - 450 10*3/uL09/19/2025 10:49 AM [facility] CtrMEAN PLATELET VOLUME, MPV8.66.3 - 10.7 fL09/19/2025 10:49 AM [facility] CtrNEUTROPHILS, %53.9. %09/19/2025 11:40 AM [facility] CtrLYMPHOCYTES, %23.1. %09/19/2025 11:40 AM [facility] CtrMONOCYTE/MACROPHAGE, %16.2. %09/19/2025 11:40 AM [facility] CtrEOSINOPHILS, %5.4. %09/19/2025 11:40 AM [facility] CtrBASOPHILS, %1.4. %09/19/2025 11:40 AM [facility] CtrNRBC0.40 - 0.5 /100{WBC}09/19/2025 11:40 AM [facility] CtrNEUTROPHILS0.7(L)1.8 - 7.7 10*3/uL09/19/2025 11:40 AM [facility] CtrLYMPHOCYTES0.3(L)1.00 - 4.8 10*3/uL09/19/2025 11:40 AM [facility] CtrMONOCYTES0.20.0 - 0.8 10*3/uL 09/19/2025 11:40 AM [facility] CtrEOSINOPHILS0.10.0 - 0.45 10*3/uL09/19/2025 11:40 AM [facility] CtrBASOPHILS0.00.0 - 0.2 10*3/uL09/19/2025 11:40 AM [facility] CtrANISOCYTOSIS Icyjqa83/ 11:40 AM [facility] CtrOVALOCYTESSlight 09/19/2025 11:40 AM [facility] CtrPLATELET ESTIMATE YiyizgziqYxcakw72/18/2025 11:40 AM [facility] CtrPLATELET NSDJMQMJIFMedfkyItiqub22/18/2025 11:40 AM [facility] Ctr Specimen (Source)Anatomical Location / LateralityCollection Method / Volume Collection TimeReceived TimeBlood (Blood)09/19/2025 10:00 AM EST09/19/2025 10:19 AM EST Narrative Authorizing ProviderResult TypeResult StatusFabiola Marinelli MDLAB BLOOD ORDERABLES Final ResultPerforming OrganizationAddressCity/State/ZIP CodePhone Number [facility] [address] [place] [address], [facility] [address] [place] [address] documented in this encounter Visit Diagnoses Not on filedocumented in this encounter Additional Health Concerns AssessmentNoted TimePHQ-9 Depression Total Score: 9:00 AM EST documented as of this encounter Care Teams Team MemberRelationshipSpecialtyStart DateEnd Date Vitaliy Thomson MD [address] [place] [address] PCP - ACO Reach03/26/23 Power Swain DO [address] [place] [address] [place] [address] PCP - GeneralFamily Medicine04/25/25 Sima Paul, [place]ES [address] [place] [address] Registered NurseFamily Welllklx74/23/23documented as of this encounter
--- OUTSIDE RECORDS SUMMARY | 2025-09-25 10:59 | XMS_ITS | Encounter Summary ---
Author Organization [facility] Address [address] [place] [address] Care Team Providers Care Floor Trader Name Role Phone Vitaliy Thomson MD Unavailable [phone] Sima Paul RN Unavailable [phone] Power Swain DO Primary Care Provider [phone] Encounter Details DateTypeDepartmentCare Team (Latest Contact Info)Ysotbmvkvdp18/11/2025External Result Encounter [facility] External Department Unsolicited Fabiola Marinelli MD [address] [place] [address] Social History Tobacco UseTypesPacks/DayYears UsedDateSmoking [...] on one occasion?Never06/15/2025PHQ-2AnswerDate Recorded Patient Health Questionnaire-2 Xenqi83611/11/2024CommentsNoSex and Gender InformationValueDate RecordedSex Assigned at BirthNot on fileLegal SexFemale 01/14/2023 6:38 PM EDTGender IdentityNot on fileSexual OrientationNot on file OccupationIndustryJob Start DateJob End DateRetiredNot on fileNot on fileNot on filedocumented as of this encounter Plan of Treatment DateTypeDepartmentCare Team (Latest Contact Info)Dckwnmdaszr95/08/2025 9:40 AM ESTOffice Visit [facility] [address] [place] [address] Power Swain, DO [address] [place] [address] [place] [address] NameTypePriorityAssociated DiagnosesDate/TimeCBC auto differentialLabSTAT 09/12/2025 9:25 AM ESTdocumented as of this encounter Procedures Procedure NamePriorityDate/TimeAssociated DiagnosisCommentsSCAN AND CBCSTAT 09/12/2025 9:25 AM EST documented in this encounter Results * (ABNORMAL) SCAN AND CBC (09/12/2025 9:25 AM EST)ComponentValueRef RangeTest MethodAnalysis TimePerformed AtPathologist SignatureWBC1.5(L)3.8 - 11.6 [CFU]/mL09/12/2025 10:18 AM [facility] CtrUNCORRECTED WHITE BLOOD COUNT1.5(L)3.8 - 11.6 10*3/uL09/12/2025 10:18 AM [facility] CtrRBC3.36(L)3.60 - 5.00 10*6/uL09/12/2025 10:18 AM [facility] VxhSTINJCIXYA93.2(L)11.8 - 15.4 g/dL09/12/2025 10:18 AM [facility] JliMLCJYUNDYJ53.9(L)34.0 - 46.4 %09/12/2025 10:18 AM [facility] HycLZB18.180 - 100 fL09/12/2025 10:18 AM [facility] VmfQBR04.424.7 - 34.3 pg09/12/2025 10:18 AM [facility] UeeBZBD46.032.0 - 35.0 g/dL09/12/2025 10:18 AM [facility] CtrRED CELL DISTRIBUTION WIDTH, RDW19.3(H)11.9 - 15.3 %09/12/2025 10:18 AM [facility] CtrPLATELET COUNT37 (LL)150 - 450 10*3/uL09/12/2025 10:33 AM [facility] Ctr Comment: Critical value result called at 1023 on 09/12/25 MEAN PLATELET VOLUME, MPV8.26.3 - 10.7 fL09/12/2025 10:18 AM [facility] CtrNEUTROPHILS, %69.8. %09/12/2025 10:51 AM [facility] CtrLYMPHOCYTES, %16.1. %09/12/2025 10:51 AM [facility] CtrMONOCYTE/MACROPHAGE, %11.5. %09/12/2025 10:51 AM [facility] CtrEOSINOPHILS, %1.7. %09/12/2025 10:51 AM [facility] CtrBASOPHILS, %0.9. %09/12/2025 10:51 AM [facility] CtrNRBC0.20 - 0.5 /100{WBC}09/12/2025 10:51 AM [facility] CtrNEUTROPHILS1.0(L)1.8 - 7.7 10*3/uL09/12/2025 10:51 AM [facility] CtrLYMPHOCYTES0.2(L)1.00 - 4.8 10*3/uL09/12/2025 10:51 AM [facility] CtrMONOCYTES0.20.0 - 0.8 10*3/uL 09/12/2025 10:51 AM [facility] CtrEOSINOPHILS0.00.0 - 0.45 10*3/uL09/12/2025 10:51 AM [facility] CtrBASOPHILS0.00.0 - 0.2 10*3/uL09/12/2025 10:51 AM [facility] CtrPOLYCHROMASIA Eaomji5509/12/2025 10:51 AM [facility] CtrPOIKILOCYTOSISSlight 09/12/2025 10:51 AM [facility] CtrANISOCYTOSISModerate 09/12/2025 10:51 AM [facility] XnvRADRYLLDHVZlkwqc85/11/2025 10:51 AM [facility] CtrPLATELET ESTIMATEDecreasedNormal 09/12/2025 10:51 AM [facility] CtrLARGE PLATELETSSlight 09/12/2025 10:51 AM [facility] CtrSpecimen (Source)Anatomical Location / LateralityCollection Method / VolumeCollection TimeReceived Time Blood (Blood)09/12/2025 9:25 AM EST09/12/2025 9:35 AM EST Narrative Authorizing ProviderResult TypeResult StatusFabiola Marinelli MDLAB BLOOD ORDERABLES Final ResultPerforming OrganizationAddressCity/State/ZIP CodePhone Number COUNTS INCLUDE [facility] AT [facility] [address] [facility] [place] [address], [facility] [address] [place] [address] documented in this encounter Visit Diagnoses Not on filedocumented in this encounter Additional Health Concerns AssessmentNoted TimePHQ-9 Depression Total Score: 9:00 AM EST documented as of this encounter Care Teams Team MemberRelationshipSpecialtyStart DateEnd Date Vitaliy Thomson MD [address] [place] [address] PCP - ACO Reach03/26/23 Power Swain DO [address] [place] [address] PCP - GeneralFamily Medicine04/25/25 Sima Paul, LES [address] [place] [address] Registered NurseFamily Rcwjjhaf46/23/23documented as of this encounter
== END 2025-09-25 10:54 | disposition home or self-care (01) ==
LOC: PST 10:53
PROVIDERS: PCP Student in an Organized Health Care Education/Training Program; Visit Provider Urology
DX: Z01.818 Encounter for other preprocedural examination (principal); R31.9 Hematuria, unspecified

== ENCOUNTER 2025-10-03 10:32 | Day surgery (SDC) | payer MEDICARE, MEDICAID, SELFPAY ==
--- OUTSIDE RECORDS SUMMARY | 2025-09-27 04:22 | XMS_ITS | Continuity of Care Document ---
Author Organization [facility] Address [address] [place] [address] Phone Care Team Providers Care Detective Name Role Phone Brynn Power Roger DO Primary Care Provider [phone] Katie Holder APRN Attending Provider Marlon Alba DO Emergency Provider [phone] Fabiola Marinelli MD Attending Provider Lulú Sweeney CREDIT PROCESSOR-C Attending Provider Fabiola Marinelli MD Referring Provider Care [...] 06, 2025 Visit Care Team Team Status: Inactive Member Role/Relationship Status Dates Power Swain DO Primary Care Provider Active Start: September 19, 2025 End: September 19Ann Marie Weldon ProviderActiveStart: September 19, 2025 End: September 19, 2025 Patient Care Team Team Status: Inactive Member Role/Relationship Status Dates Power Swain DO Primary Care Provider Active Start: September 27, 2025 End: September 27Adina Tsai ProviderActiveStart: September 27, 2025 End: September 27, 2025 Visit Care Team Team Status: Active Member Role/Relationship Status Dates Fabiola Marinelli MD Attending Provider Active Start: September 27, 2025 Yocasta Rubalcava ProviderActiveStart: September 27, 2025 Judah Ferrara Care ProviderActiveStart: September 27, 2025 Chief Complaint and Reason for Visit Chief Complaint Admit Date rt side pain, vomiting July 19, 2 025 11:40am 7 week f/u July 27, 2025 10:25am f/u September 19, 2025 10:09am Follow Up after MRI September 27, 2025 8:13am 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, 2025 8:54am Reason for Visit Admit Date Cancer associated [...] pain August 16 7:42am Hepatocellular carcinoma August 16, 025 7:42am Multiple myeloma August 16, 2025 7 :42am Nausea August 16, 2025 7 :42am Anxiety September 06, 2025 7 :48am Cancer associated pain September 06 7:48am Hepatocellular carcinoma September 06, 025 7:48am Multiple myeloma September 06, 2025 7 :48am Hemorrhoids, complicated September 19, 2025 10:09am Hepatocellular [...] due to sequestration No vember 2024 10:09am Acute right hip pain September 27, 2025 8:54am Hematuria September 27, 2025 8:54am Acute thoracic back pain September 27, 2025 8:54am Bone marrow hypocellularity September 8:54am Cancer-related pain September 27, 2025 8:54am Chemotherapy-induced neutropenia Novembe r 2024 8:54am Chronic copper deficiency September 27, 2025 8:54am Degenerative cervical spinal stenosis No 2024 8:54am Encounter for antineoplastic immunothera py September 27, 2025 8:54am Encounter for chemotherapy management No 2024 8:54am Encounter for coordination of complex ca re September 27, 2025 8:54am History of 2019 novel coronavirus diseas e (COVID-19) September 27, 2025 8:54am 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 September 27, 2025 8:54am Iron deficiency September 27, 2025 8:54am 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) September 27, 2025 8:54am Multiple myeloma September 27, 2025 8:54am Neutropenia, unspecified September 27, 2025 8:54am Obesity September 27, 2025 8:54am Thrombocytopenia due to sequestration No 2024 8:54am Frontal sinusitis September 27, 2025 8:54am Diabetes mellitus September 27, 2025 8:54am Fibromyalgia September 27, 2025 8:54am Smoldering multiple myeloma (SMM) Novemb er 2024 8:54am Allergies, Adverse Reactions, Alerts Allergen Type Severity Reaction Last Updated Verified Status Comments diclofenac Allergy Unknown Hives September 27, 2025 8:35am Yes Active doxycyclineAllergyUnknownHivesNovember 2024 8:35amYesActivemoxifloxacin AllergyUnknownHivesNovember 2024 8:35amYesActiveerythromycin baseAllergy UnknownHivesNovember 2024 8:35amYesActivePt has tolerated azithromycin without issue.latexAllergyUnknownUnknown ReactionNovember 2024 8:35amYes ActiveQuinolonesAllergyUnknownUnknown ReactionNovember 2024 8:35amYes ActivetetracyclineAllergyUnknownUnknown ReactionNovember 2024 8:35amYes Active Social History Smoking Status Status Start [...] coronavirus disease (COVID-19)December 18, 2021 3:19pmUnknownActiveHistory of COVID-19May 2023 10:66omNvhnbzwBkybva70/2023Refractory chronic coughMarch 2023 10:57amUnknownActiveImmunosuppressionMarch 2022 2:51amUnknownActiveLiver lesionNovember 2023 3:20pmUnknownActiveAcute right hip painSeptember 2020 3:39pmUnknownActiveFamily history of colon cancerNovember 2017 9:13am UnknownActiveHemorrhoids, complicatedJanuary 2024 4:32pmUnknownActive Thrombocytopenia due to sequestrationJanuary 2017 4:26pmUnknownActive Spontaneous bacterial peritonitisJune 2023 8:04amUnknownActiveMaxillary sinusitis, chronicMay 2023 10:44amUnknownActiveSinus CT 01/25/2024 - Bilateral moderate sinusitis, mild ethmoid sinusitisEpistaxisJune 2018 3:45pmUnknownActiveRhinovirus infectionJune 2023 8:52amUnknownActive HematuriaJanuary 2020 9:61koKeuwzxrIihxbnKT2 (diabetes mellitus, type 2) March 21, 2024 [...] disease)April 18, 2019 11:00amUnknownActivePFT: 02/24/2024-FEV1/FVC: 70%-FEV1: 87%-FVC: 95%-ZSN45-56%: 60% -Bronchodilator response: None -RV: 118%-T%-DLCO: 71%-Flow-volume loop: Mild obstructionBlood in stoolNov2017 9:12am UnknownActiveSmoldering myelomaAugust 2023 7:34amUnknownActiveGERD (gastroesophageal reflux [...] 2023 1:43pmFebruary 2023 1:47pmOxycodone 10 mg tablet Xmnqqmqzyvka17YXAOHMJJR 4-6 HOURS as needed for Jomh838419Blfmlmts 2023February 03, 2024 1:05pmNeoplasm related pain Neoplasm related pain (acute) (chronic)Oxycodone 10 mg imcdpnEqljtihulpvc88OOQU EVERY 4-6 HOURS as needed for Mdlj299524Puwrp 2023 12:52pm Neoplasm related pain Neoplasm related pain (acute) (chronic)Potassium Chloride 10 mEq capsule, extended releaseDiscontinued0.ROUTE.AVUCPTU854Hdkwh 2023 12:08pmSeptember 2023 12:55pmMultiple myeloma Multiple myeloma not having achieved remissionTAKE 1 CAPSULE BY MOUTH EVERY DAY Ondansetron 8 mg tablet,vrrqluzrnlirdsIwkbgfklxggz0LRCQDsubc times daily as needed for Veruwl200Pgesu 2023 8:26amJune 2023 5:01pmGabapentin 400 mg hmcaosjDevztfbevgxx433CDUWPrxiu times gmfpb91219Bviar 2023 9:48amJune 2023 12:17pmpainOxycodone 10 mg pbqzceJxjecaancdxc47LSVQUOEWL 4-6 HOURS as needed for Essg076947Pvk 2023May 2023 1:10pmNeoplasm related pain Neoplasm related pain (acute) (chronic)Knngvxsmac-Utunpbqn-Xytaqmvvjf (Breztri Aerosphere) 160-9-4.8 mcg/actuation HFA aerosol pxqskswUvtmbyrmlqhv3YYP INHALATIONTwice daily10.47735Aosk 2023 9:59amJune 2023 5:02pm Gabapentin 400 mg cvqsacdOwqyptybhurd522VAHMEytaw hcebi21018Thse 2023 8:43amAugust 2023 8:48ampainOxycodone 10 mg tgsiirTyocifbazizf60LCYAWufl times daily as needed for Rtht458220Gvgc 2023July 2023 3:05pmNeoplasm related pain Neoplasm related pain (acute) (chronic)Oxycodone 10 mg prxmoxDycwuiguwkhw53VHTS Four times daily as needed for Mwnf791323Imoh , ugust 2023 8:48am Neoplasm related pain Neoplasm related pain (acute) (chronic)Ondansetron 8 mg tablet,disintegrating Dyzarlvfjrvb5FYEHLzouc 8 hours as needed for nausea and pgegektg971Iaushw 2023 9:39amDecember 2023 12:40pmSodium Chloride 0.9 % solution for tctlvjvttmemSzistpemotns8IAHIHVHEBNOJVkgzv 12 ipgmy6189858Gewrwy 2023 11:00pmAugust 2023 1:35azPzrixnutuq-Xzpiztpz-Hfogvvusyq (Breztri Aerosphere) 160-9-4.8 mcg/actuation HFA aerosol ymtkuxfKzpube1ARVUGKZMNBYSIWafrm daily10.22265Ikfwzn 2023 9:11amUnknownOxycodone 10 mg dlpeuyPwqfkxpezigj86 MGPOEVERY 4-6 HOURS as needed for Ecmx550087Adioelgbe 2023October 2023 10:55amNeoplasm related pain Neoplasm related pain (acute) (chronic)Potassium Chloride 10 mEq capsule, extended releaseDiscontinued0.ROUTE.ZEJCGZH351Oulncmruf 27th, 2024 12:55pm December 12, 2024 3:24pmMultiple myeloma Multiple myeloma not having achieved remissionTAKE 1 CAPSULE BY MOUTH EVERY DAY Lorazepam (Ativan) 0.5 mg tabletDiscontinued0.5MGPOOnce as needed for claustrophobia from WHK823Loohrpif 2023 12:00amSeptember 2024 9:43am Claustrophobia ClaustrophobiaTake 1 tablet 30 minutes before scheduled MRI time; take second tablet only if needed for claustrophobia/anxiety related to MRIOxycodone 10 mg yskcnaSwnpaunddwce52FTPPHOKCV 4-6 HOURS as needed for Gdux741978Tfasihgd ecember 2023 11:20amNeoplasm related pain Neoplasm related pain (acute) (chronic)Ondansetron 8 mg tablet,disintegrating Pxhgcptkbfrd0HUGRFster 8 hours as needed for nausea and mcrrsguc397Pmncdaqi 2023 12:39pmMarch 2024 9:21amOxycodone 10 mg khpegwNmhzmtqzuhwi30BA POEVERY 4-6 HOURS as needed for Huuo357138Zrvbwvd 2024January 2024 1:20pmNeoplasm related pain Neoplasm related pain (acute) (chronic)Oxycodone 10 mg lpgompXwijcnggvhro86OENY EVERY 4-6 HOURS as needed for Njvu928159Fabtfkl 2024February 2024 12:06pmNeoplasm related pain Neoplasm related pain (acute) (chronic)Potassium Chloride 10 mEq capsule, extended releaseDiscontinued0.ROUTE.ISSEXVK848Fgeujzie 10th, 2025 3:24pm Pallavi 23rd, 2025 10:55amMultiple myeloma Multiple myeloma not having achieved remissionTAKE 1 CAPSULE BY MOUTH EVERY DAY Sulfamethoxazole-Trimethoprim 800-160 mg mckjfjGyimyu0DCGIMnyamr Thursday, Thursday, and Hlkvjl55035Eithruaq 2024 9:54amHypogammaglobulinemia Nonfamilial hypogammaglobulinemiaUnknownOxycodone 10 mg innrafGwiosdaamfew48CHKB EVERY 4-6 HOURS as needed for Giwe142395Uqtjr pril 2024 12:53pm Neoplasm related pain Neoplasm related pain (acute) (chronic)Magnesium Oxide 400 mg (241.3 mg magnesium) tabletDiscontinued0.ROUTE.RBNRILI097Kiaey 2024 2:13pmSeptember 2024 9:03amTAKE 1 TABLET BY MOUTH EVERY DAYOndansetron 8 mg tablet,cwfgdksavbrtucHydilyienzru9NWMYOljpl 8 hours as needed for nausea and fdvapogh842Nvrwe 2024 9:20amApril 2024 2:06pmOxycodone 10 mg tablet Mkhdeqprywtt76ZNRHZYFMU 4-6 HOURS as needed for Them164443Qyioz 2024May 2024 9:34amNeoplasm related pain Neoplasm related pain (acute) (chronic)Oxycodone 10 mg denipvQcvcsvzyddfl41FYKO EVERY 4-6 HOURS as needed for Chng486712Wcn 2024June 2024 8:53am Neoplasm related pain Neoplasm related pain (acute) (chronic)Ondansetron 8 mg tablet,disintegrating Vwjmgisorvkq2LAGJJhzoy 8 hours as needed for nausea and xprgsrgt884Cknb 2024 10:11amJuly 2024 9:53amDiazepam 5 mg vncphvVqwvjtthwuyq3SFYZ.COMPLEX as needed for mqplqss382Nwlx 2024 1:14pmJune 2024 7:45am Claustrophobia Claustrophobia5 mg orally 1 dose 30 minutes prior to PET scan, may repeat once 5 minutes before PRN;Pantoprazole 40 mg tablet,delayed release (DR/EC)Active0 .ROUTE.GEBAZDY6116Mfen 2024 9:40amTAKE 1 TABLET BY MOUTH TWICE A DAY UnknownOndansetron 8 mg tablet,vgxrfjuxtcdphrLopbqtuswcmf8GQKUFumaf 8 hours as needed for nausea and ltsjxtcg028Nkqx 2024 9:52amAugust 2024 11:51am Cefpodoxime 100 mg jhvxstXwuwfdihyssd951WESXJdpdw slwxy790Tztt 2024 11:00pmAugust 2024 8:37ammust administer with a meal/foodFosfomycin Tromethamine 3 gram cxkpbsNawfsietpnne9HEDTWLOL.HKKTLGM36Uuky 2024 11:00pm June 15, 2025 8:37am1 packet orally Q5 days;Morphine 15 mg tablet extended dtyyvjlCcmqddowsodx24NBKZEgkkp 12 gilmx42757Vmipdh 2024Sept2024 9:29amNeoplasm related pain Hepatocellular carcinoma Neoplasm related pain (acute) (chronic) Liver cell carcinomaOxycodone 10 mg miwasaXdznjbqeaxxv68VCNHKkcqs 4 hours as needed for Sewn985980Hmhaoy ugu2024 10:14amNeoplasm related pain Neoplasm related pain (acute) (chronic)Oxycodone 10 mg tuvonkNpydnqvopbwz02LEIO Every 4 hours as needed for Tygi867796Ovnbvz 2024September 2024 9:29amNeoplasm related pain Neoplasm related pain (acute) (chronic)Ondansetron 8 mg tablet,disintegrating Afuanlbzrxck3QRXDVrhtd 8 hours as needed for nausea and fjgigccx287Vbburo 2024 11:51amOctober 2024 9:07amPotassium Chloride 10 mEq capsule, extended releaseActive0.ROUTE.JEKCJZY182Jdxcryimq 23rd, 2025 10:55amMultiple myeloma Multiple myeloma not having achieved remissionTAKE 1 CAPSULE BY MOUTH EVERY DAY UnknownMagnesium Oxide 400 mg (241.3 mg magnesium) tabletActive0.ROUTE.ZCYJBII68 1Sept2024 9:03amTAKE 1 TABLET BY MOUTH EVERY DAYUnknown Prochlorperazine Maleate 10 mg satwemTelojwpcuskn07LPZFXtzvn daily as needed for nausea and ltzurxiy993Zmaqcuzbi 25th, 2025 11:00pmOctober 2024 10:39am Prochlorperazine Maleate 10 mg teanquEsrrny60ZDEYCsnwz daily as needed for nausea and cabtuevy82251Bayiuys 2024 10:38amUnknownDiazepam 5 mg tablet Qinokqqkmarx6DVBZ.DGFBOZE159Onglgdbw 2024 12:00am[facility] 20[facility] 12:30pmAnxiety Anxiety disorder, unspecified5 mg orally take one tab 30 minutes prior to MRI may repeat x1 5minutes before if neededDiazepam 5 mg sikxgtYfkrmgdodtyj8RXOD .PKXALFI317Qudwoxqj 2024 12:00[facility] 2024 10:19amAnxiety Anxiety disorder, unspecified5 mg orally Take one tab 30 minutes before MRI may repeat and take 5mg po 5min before MRI;Carvedilol 12.5 mg yshqluAzimqf42.5MGPO Twice dailyJanuary 2017 12:00amUnknownFerrous Sulfate 325 mg (65 mg iron) rdmqlpSlbwgvfmejos6UVBMAUiiyt dailyJanuary 2017 12:00amJanuary 2017 2:03pmRosuvastatin 5 mg yxbvtwLemwobovspwr0ERHHLJsrfpHzvkkty 2017 12:00am April 13, 2019 1:01pmDuloxetine 60 mg capsule,delayed release(DR/EC)Crtqtp04HF PODailyJanuary 2017 12:00amUnknownInsulin Detemir U-100 100 unit/mL (3 mL) insulin rwuUbjwbeyseixb42JWUMYAQUUYBDtele as needed for HyperglycemiaJanuary 2017 12:00[facility] 8:37amInject 22 unites under the skin once daily only if blood sugar is greater than 140Oxycodone 10 mg tabletDiscontinued 10MGPOTwice daily as needed for PainJanuary 2017 12:00amFebruary 2023 1:44pmFluticasone Propion-Salmeterol (Advair Diskus) 250-50 mcg/dose Blister With QhmafwMoxfcwlucyao5RSZQZBYYPIODHU51K as needed for Shortness Of BreathJanuary 2017 12:00amMarch 2022 7:28amAlbuterol Sulfate 90 mcg/actuation Hfa Aerosol RavvewyMeptwjtylhii4FWKESYNIGFGHRMX4C as needed for Shortness Of BreathJanuary 2017 12:00amAugust 2023 8:28amOmeprazole Magnesium (Prilosec Otc) 20 mg Tablet,Delayed Release (Dr/Ec)Vcyrmxrrihvr10CSFR DailyJanuary 2017 12:00amMay 2023 1:01pmAlbuterol Sulfate (Proair Hfa) 90 mcg/actuation Hfa Aerosol GjhupxfMybvihyrxgue7RBTNWZZSRHXQRIOXKCH 4-6 HOURS as needed for Shortness Of Breath Or WheezingJanuary 2017 12:00am April 18, 2019 10:58amCyclobenzaprine 10 mg vobkcwVckvcnpcwxmg63FEKVUxnaj times daily as needed for Muscle SpasmFebruary 2018 10:50amJune 2018 1:01pmMetformin 500 mg Tablet Extended Release 24 JwNlhfkyoszxhq109IFIACstvo dailyMay 2019 11:00pmJune 2023 12:14pmOndansetron Hcl (Zofran) 8 mg GozgutRfhfthsfwjzd9LDXYTskpg times daily as needed for NauseaMay 2019 11:00pmJune 2019 12:45pmOndansetron Hcl (Zofran) 8 mg BisfytHareracenvvv8KK POThree times daily as needed for Rkqcrq478Htai 2019 12:45pmMarch 2022 7:36amDexamethasone 4 mg PhntymNbgmjdwbtvns96VYHJAyvi81579Wxr 2019 11:00pmJune 2019 1:11pmMultiple myeloma Multiple myeloma not having achieved remissionAcyclovir 400 mg Tablet Hdejohokxizj250UQQRLrfjm napae736441Guo 2019 11:00pmSeptember 2019 8:50amMultiple myeloma Need for prophylactic antibiotic Multiple myeloma not having achieved remission USP (current) use of antibioticsDexamethasone 4 mg BlmzcmVvucnervmbrc45QU CPZmui26553Chut 2019 1:11pmJanuary 2020 11:39amMultiple myeloma Multiple myeloma not having achieved remissionInsulin Nph Isoph U-100 Human (Novolin N Nph U-100 Insulin) 100 unit/mL FsymimrodtFlimibgylbnl89JQUEAODBEVAa DirectedJuly 2019 11:00pmMarch 2022 7:34amTake 15-20 units ater chemo on chemo daysDiazepam (Diazepam Intensol) 5 mg/mL ConcentrateDiscontinued0 .ROUTE.EWXEQOF8503Kfaf 2019 11:00pmJuly 2019 1:33pmAnxiety Anxiety disorder, unspecified5 mg orally 30 min prior to MRI, may repeat one dose 5 min prior to MRI if needed. 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 Must have a driverDiazepam (Valium) 5 mg ObqwuoXttxglgaknok8CDXZNn Qguexzdc134Jrtw 2019 1:40pmMay 2020 3:08pmClaustrophobia Claustrophobiatake 30 minutes before MRI, may repeat X1 five minutes before MRI if needed. Must have a driverNystatin 100,000 unit/mL SuspensionDiscontinued 481973MREEQDTMETVywxg470247Mlpxbp 2019 11:00pmJanuary 2022 10:47am Candidiasis of mouth Candidal stomatitis oral painadminister 1/2 of dose in each side of the mouthAcyclovir 400 mg Tablet Ikgyqfnyznkc092KRMJRzwzz idukd360168Mxlwcnujz 2019 8:50amMarch 2020 8:22amMultiple myeloma Need for prophylactic antibiotic Multiple myeloma not having achieved remission USP (current) use of antibioticsPotassium Chloride 10 mEq Tablet Extended SgstfvxNurcobwgllwj43YOKQWDcghc047Ebdzkpu 2019 11:00pmOctober 2019 9:39amPotassium Chloride 10 mEq Capsule, Extended XhyjaifKbovdunuivlz35AYORQ Ledrw965Sxqbrsr 2019 11:00pmFebruary 2020 8:21amMultiple myeloma Multiple myeloma not having achieved remissionSemaglutide (Ozempic) 0.25 mg or 0.5 mg(2 mg/1.5 mL) Pen MmzcnaziFezejhizpbnt3RTATBRLLekkce weekNovember 2019 12:00amJune 2023 12:13pmCyanocobalamin (Vitamin B-12) 5,000 mcg DctkkmeRkttjsvbeuqn0445ZLCXRtaxnk weekDeceavenir [facility] 2019 12:00amMarch 2022 7:24amAzithromycin (Zithromax Z-Satya) 250 mg XrsfgeFwlcvcwktvov507CGMSJumwk November 26, 2020 12:00amMarch 2021 7:38amDexamethasone 4 mg Tablet Sbwfvedrckky13LEQJDrms62135Mybilwk 2020 11:39amFebruary 2021 12:13pm Multiple myeloma Multiple myeloma not having achieved remissionPotassium Chloride 10 mEq Capsule, Extended BmuzshlQmorzrsjnxbo71UZXJITkjdd705Bbvpowvk 2020 8:20amMay 2020 7:14amMultiple myeloma Multiple myeloma not having achieved remissionAcyclovir 400 mg Tablet Knyuxturjzir721DDUCEevzu kokyu596907Xuaiq 2020 8:22amSeptember 2020 8:45amMultiple myeloma Need for prophylactic antibiotic Multiple myeloma not having achieved remission 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 Must have a driverDiazepam (Valium) 5 mg PextagEsmspfggyodh6LRHOQn Ktrvbwnj005Yhlj 2020 2:55pmSeptember 2020 2:02pmClaustrophobia Claustrophobiatake 30 minutes before MRI, may repeat X1 five minutes before MRI if needed. 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 Must have a driverGabapentin 300 mg ZamqohWdlbkcsnjxho717KONNXkbly times dailySeptember 2020 11:00pmMarch 2022 7:29amPotassium Chloride 10 mEq Capsule, Extended BhlellkIpslcuxmefyq62UUZIRZpsdw900Fvcyqcu 2020 11:20amJanuary 2021 9:18amMultiple myeloma Multiple myeloma not having achieved remissionLenalidomide (Revlimid) 5 mg CapsuleDiscontinued0.ROUTE.NEQXNGD30076Gzhplzw 2020 11:00pmNovember 2020 2:21pmMultiple myeloma Multiple myeloma not having achieved remission5 mg orally daily for 21 days, 7 days off;swallow whole with glass of water; do not open, crush, chew , break, or dissolveLenalidomide (Revlimid) 5 mg YdcrzcwFtixnpznldny1LREOIrwwz532Kdardqz 2020 11:00pmNovember 2020 2:21pmSmoldering multiple myeloma Multiple myeloma not having achieved remissionTAKE ONE DAILY FOR 21 DAYS AND 7 DAYS OFF.ADULT FEMALE NOT OF REPRODUCTIVE POTENTIAL. AUTH#[id number] (Revlimid) 5 mg IhldgcfYsfwqeenfutm0DBXLKwndz954Ejznohhp 2020 2:21pm October 18, 2021 2:27pmSmoldering multiple myeloma Multiple myeloma not having achieved remissionTAKE ONE DAILY FOR 21 DAYS AND 7 DAYS OFF.ADULT FEMALE NOT OF REPRODUCTIVE POTENTIAL. AUTH#[id number] (Revlimid) 5 mg PcrmdgjGyuhorofafzr7BCNVIopyp079Zgodixlv 2020 2:26pm November 20, 2021 9:48amSmoldering multiple myeloma Multiple myeloma not having achieved remissionTAKE ONE DAILY FOR 14 DAYS AND 14 DAYS OFF.ADULT FEMALE NOT OF REPRODUCTIVE POTENTIAL. AUTH#[id number] 8 mg Tablet,DwbsqarwztpfsfFjufldxmvlap6VKVMM1T as needed for Wplpxw082Grpnjwtu 2020 11:30amDecember 2020 11:32amOndansetron 8 mg Tablet,XptoguwvimghsmDgevjeophifz2AAVBO4J as needed for Mefteq975Oubfctzy 2020 11:32amAugust 2021 9:19amLenalidomide (Revlimid) 5 mg Capsule Moedbkesespo3BSGGZqwyb990Sfrndxg 2021 9:48amFebruary 2021 4:03pm Smoldering multiple myeloma Multiple myeloma not having achieved remissionTAKE ONE DAILY FOR 14 DAYS AND 14 DAYS OFF.ADULT FEMALE NOT OF REPRODUCTIVE POTENTIAL. 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 AUTH#[id number] (Pomalyst) 3 mg YqpritwTjglyvgsjkqw9IERYJhnqa841Vwimk 2021 11:00pmApril 2021 3:03pmPomalidomide (Pomalyst) 3 mg CjimdxjCxryfgrhmaxx7NTMYYagmi265 February 19, 2022 3:03pmMay 2021 8:06amSmoldering multiple myeloma Multiple myeloma not having achieved remissiontake 1 daily for 21 days of 28 day cycle.adult female not of reproductive potential AUTH#[id number] Chloride 10 mEq Capsule, Extended IexfbrrUukuspkzdxxl12TDXHTXkffo693Mwljp 2021 7:34amJuly 2021 7:10amMultiple myeloma Multiple myeloma not having achieved remissionPomalidomide (Pomalyst) 2 mg YjtgljbZnhfvjarbjxc7PCMECtlkt31133Nue 2021 11:00pmMay 2021 9:35am Multiple myeloma Multiple myeloma not having achieved remissionPomalidomide (Pomalyst) 2 mg GghyifiTxyfnppysecp8WRIDAtqwo41571Vlj 2021 9:35amJune 2021 2:37pm Multiple myeloma Multiple myeloma not having achieved remissionTAKE 1 DAILY FOR 14 DAYS OF 28 DAY CYCLE.FEMALE NOT OF REPRODUCTIVE POTENTIAL AUTH#[id number] 4 mg Tablet Wlsrtaceoata15SMGBVvus29815Eeu 2021 8:22amMarch 2022 7:27amMultiple myeloma Multiple myeloma not having achieved remissionLactulose 20 gram/30 mL Solution Ayomrlvkcfoz96FYWFLwwvu daily as needed for Rphvkwexybdk3821Wlde 2021 10:43amDecember 2022 11:31amPomalidomide (Pomalyst) 2 mg Capsule Mwboyqesndtn4RTHURkmle34810Gjur 2021 2:37pmJune 2021 1:24pmMultiple myeloma Multiple myeloma not having achieved remissionTAKE 1 DAILY FOR 14 DAYS OF 28 DAY CYCLE.FEMALE NOT OF REPRODUCTIVE POTENTIAL AUTH#[id number] (Pomalyst) 2 mg PzogjtcUirwymlawryv8OQILSdutu04829Mrtj 2021 1:24pmJuly 2021 3:14pmMultiple myeloma Multiple myeloma not having achieved remissionTAKE 1 DAILY FOR 14 DAYS OF 28 DAY CYCLE.FEMALE NOT OF REPRODUCTIVE POTENTIAL AUTH#[id number] (Pomalyst) 2 mg FrituxoZbovqtrvzpcs8XXFJArhrp28878Wwlc 2021 3:14pmAugust 2021 2:14pmMultiple myeloma Multiple myeloma not having achieved remissionTAKE 1 DAILY FOR 14 DAYS OF 28 DAY CYCLE.FEMALE NOT OF REPRODUCTIVE POTENTIAL AUTH#[id number] Chloride 10 mEq Capsule, Extended DgvjfunUmyvjpnvtjnb65ZMDOYYihek133Yccb 2021 7:10am August 18, 2022 7:14amMultiple myeloma Multiple myeloma not having achieved remissionOndansetron 8 mg Tablet,PnqsybkunzppelDgdlbhpolgtc1OZMYV0A as needed for Drsqpj248Drskww 2021 9:18amMarch 2022 7:36amPomalidomide (Pomalyst) 2 mg Capsule Hyncmugxwmxb8OKHXUtonf39903Ktzzep 2021 2:14pmDecember 2021 10:29am Multiple myeloma Multiple myeloma not having achieved remissionTAKE 1 DAILY FOR 14 DAYS OF 28 DAY CYCLE.FEMALE NOT OF REPRODUCTIVE POTENTIAL AUTH#[id number] 4 mg Tablet Jchcsxhqzrzh60CIGCMgzt232Bnylulyyf 2021 11:00pmMarch 2022 7:25am Dexamethasone 4 mg DdsayyPtvswcymxueo09DDFJRaad316Ovewvgr 2021 11:00pm January 09, 2023 10:42amPotassium Chloride 10 mEq Capsule, Extended Release Nnhpyrosrdtb08HKOQNIytaw171Sgtujzf 2021 7:14amJanuary 2022 8:32am Multiple myeloma Multiple myeloma not having achieved remissionAcyclovir 400 mg Tablet Gcdsclvcsepa328JJUYQfgst wkjtm199878Xkasntld 2021 8:11amJanuary 2024 10:30amMultiple myeloma Need for prophylactic antibiotic Multiple myeloma not having achieved remission 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 (current) use of antibioticsNystatin 100,000 unit/mL Suspension Tpkhtmomisgz6GYYESlhb times bzhyg7166Birkunmc 2021 12:00amJanuary 2022 10:47amswish and swallowPotassium Chloride 10 mEq Capsule, Extended Release Feybdpyrrwtf05KAOLFRlhgk730Rufsbad 2022 8:32amJuly 2022 7:37am Multiple myeloma Multiple myeloma not having achieved remissionLevofloxacin (Levaquin) 750 mg PhafbqBaerhighfqnp204AHGDDvzqjLlwxeji 2022 12:00amJanuary 2022 11:19amAmoxicillin-Pot Clavulanate (Augmentin) 875-125 mg TxckviUznhslkocvmj3XVE POTwice dailyJanuary 2022 12:00amJanuary 2022 11:23amAmoxicillin-Pot Clavulanate 875-125 mg ZienmdNolbhhpnhfgi2TQLHNXtknc emhwb31116Qodxlqv 2022 11:23amFebruary 2022 9:37amLoratadine (Claritin) 10 mg Tablet Uyiwoyqbweoh46JNUUCqysnHyctikzw 2022 12:00amMay 2023 9:56am Fluconazole (Diflucan) 100 mg OyzhlzOqxtdursrvhd271THAFUajshBcwrcmej 2022 12:00amFebruary 2022 10:01amAmoxicillin-Pot Clavulanate (Augmentin) 875- 125 mg CchmkwQertjdhngeub7BDGHSYkxjm dailyFebruary 2022 12:00amFebruary 2022 10:01amFluconazole (Diflucan) 100 mg DmuxdzGsqkkptohnux771KALUAcmmr92 0February 2022 10:01amMarch 2022 7:28amAmoxicillin-Pot Clavulanate 875-125 mg TeatjrJiilppffavln2IEGKSViqst koxch90807Sksezdhk 2022 10:01am January 28, 2023 7:23amAzithromycin (Zithromax Z-Satya) 250 mg TabletDiscontinued0 MGPO.COMPLEXMar 2022 11:00pmMarch 2022 8:54amFor 250 mg dose pack: take 500 mg today (day 1), then 250 mg for 4 days (days 2-5)Azithromycin (Zithromax Z-Satya) 250 mg RbxdxkWsjqqobtwcpc4CXEN.XFBYZWR14Hblgo 2022 8:52amApril 2022 8:29amFor 250 mg dose pack: take 500 mg today (day 1), then 250 mg for 4 days (days 2-5)Ondansetron 8 mg tablet,disintegrating Ykxzwedthvfy1DELYEubzw times daily as needed for Bpcfny325Jwbik 2022 1:32pmSeptember 2022 10:17amPotassium Chloride 10 mEq Capsule, Extended RjmjmxiCdsrtwmucjjo35EUAQRFjovr284Ekvs 2022 7:37amJanuary 2023 8:33am Multiple myeloma Multiple myeloma not having achieved remissionOndansetron 8 mg tablet,lxyimuyfpmpskmCwgcfnmmxfls7FATPZaymb times daily as needed for Hzzhip312 July 08, 2023 10:17amDecember 2022 12:19pmPolyethylene Glycol 3350 (Miralax) 17 gram Powder In AqkascHdvrzpohulzd04VGVBCokmuHwvomxmq 2022 12:00amJune 2023 5:01pmSulfamethoxazole-Trimethoprim 800-160 mg Tablet Qhbwvprjasyg1SBJZQgujui Thursday, Thursday, and Rdibdq02971Rmsdgfyq 2022 12:00amFebruary 2024 9:55amHypogammaglobulinemia Nonfamilial hypogammaglobulinemiaOndansetron 8 mg tablet,disintegrating Obyqxltxymwq4FKVSHiktw times daily as needed for Tdsqnm549Tivywrqc 2022 12:19pmApril 2023 8:26amPotassium Chloride 10 mEq Capsule, Extended SfiuaecAtgtqokudjfb40BKNCIVfuni357Oyzhcrr 2023 8:33amApril 2023 12:08pmMultiple myeloma Multiple myeloma not having achieved remissionTemazepam (Restoril) 30 mg Capsule Xwcumrawetgt79SGRPGvncx at bedtime as needed for SleepSeptember 15, 2018 12:00amJune 2018 1:02pmCholecalciferol (Vitamin D3) (Vitamin D3) 5,000 unit QzhhjxWoajkzqdjvxi8360BCABFFKqzdnMjccuxdv 14th, 2018 12:00am[facility] 2017 8:39amCyanocobalamin (Vitamin B-12) 1,000 mcg BqsbmfbNksachwlwkis9113WYLMU DailySeptember 15, 2018 12:00am[facility] 2019 2:13pmCyclobenzaprine 10 mg xupdctYccwtmavuvou16DTRKBlncu times gcxwt560Yezlklls 19th, 2018 12:00amFebruary 2018 10:50amPrednisone 20 mg zqlnfaPfaqxbtilcmn56LFCIMvvtu1289Dsivmrst 19th, 2018 12:00am[facility] 2017 12:00am[facility] 2017 12:01am Cholecalciferol (Vitamin D3) (Vitamin D3) 1,000 unit UslxareGyqrheyvarrb5412IAMX PODaile 2018 11:00pmMarch 2022 7:24amCephalexin (Keflex) 500 mg vpzpfoyGzvblxkajhgo805QABTAhiwz sndxl5569Lzsstzg 2020 12:00amMarch 2020 10:01amNirmatrelvir-Ritonavir (Paxlovid (Eua)) 300 mg (150 mg x 2)-100 mg tablets,dose nqecTpjrbpcttkyk6IA.MFRBTEV156Fzeawfab 2022 12:00am[facility] 2022 9:52amorally per package directionsMorphine 15 mg tablet extended ppwpahhSrxbflvedujz99GLDVVtngp 12 muqbk71030Vgrpvursx 2024October 2024 9:07amNeoplasm related pain Hepatocellular carcinoma Neoplasm related pain (acute) (chronic) Liver cell carcinomaOxycodone 10 mg vztcywVmaubhhpszku42EFQYDqkez 4 hours as needed for Lbqn727421Szqcwborf 2024October 2024 9:07amNeoplasm related pain Neoplasm related pain (acute) (chronic)Cyanocobalamin (Vitamin B-12) 1,000 mcg tablet, kvrzvaehibIpjdgw2268USDRZPHEXKYYJVgsqbSklnn 2022 11:00pmUnknown Dexamethasone 4 mg xpwmpwFnmfimzwivtz74PXLNZq Directed as needed for Systemic Signs And SymptomsMarch 2022 7:27amMarch 2023 10:17amtake 5 tablest by mouth at once when directed related to chemotherapy scheduleFluticasone Propionate 50 mcg/actuation [place],AnxnfepbocRkjwcv3MFEFPJTBYMPJZWKEjlns as needed for Allergy SymptomsMarch 2022 11:00pmadminister into each nostril UnknownLisinopril 5 mg bqbezlKejjxegftnvc4BWWETtfoeYmoza 2022 11:00pmMay 2023 9:56amInsulin Aspart U-100 (Novolog Flexpen U-100 Insulin) 100 unit/mL (3 mL) Insulin UvmDrwtdfzekxbk03FAJVOREOMPNtcjq as needed for HyperglycemiaMarch 2022 11:00pmJune 2023 8:15pmINJECT 25 UNITS UNDER THE SKIN ON CHEMO DAYS AFTER CHEMOOndansetron 8 mg tablet,disintegrating Norlhujrebjl7XADNZnkrs times daily as needed for NauseaMarch 2022 7:36am February 10, 2023 1:32pmAtorvastatin 80 mg kcxoqtJxbftneyrnre80QSIPSborlPynof 2022 11:00pmJune 2023 12:14pmPhenazopyridine 100 mg Tablet Ubzsszcuqsni827EUODCsxoa times daily as needed for Omax207Cshiz 2022 11:00pmApril 2022 8:20amCephalexin 500 mg ixwzdaxXdcbclgkjdsu335GUYYPlbhs fheym4345Smhek 2022 11:00pmApril 2022 8:29amGabapentin 400 mg BummobvVcgmdxiowmko916PHGDSullb times dailyApril 2022 11:00pmApril 2023 9:49ampainCholecalciferol (Vitamin D3) 125 mcg (5,000 unit) capsuleActive 125MCGPODailyJune 2023 11:00pmFreeTextSig: as directed Orally 2 capsules 4 days a week, 3 capsules 3 days a week.; Note: Source Status: Not-Taking\PRN; Provider: Gallo Wilson ( )UnknownEpinephrine 0.3 mg/0.3 mL auto-injectorActive0.3MGIMOnce as needed for anaphylaxisJune 2023 11:00pm UnknownLisinopril 5 mg bgzkenZcqhidvirysz1BDRYJfqdrHzet 2023 11:00pmOctober 2023 10:32amOmeprazole 40 mg capsule,delayed release(DR/EC)Gnfmofgagzxv34 MGPODailyJune 2023 11:00pmOctober 2023 10:33amFreeTextSi capsule Orally Once a day; Note: Source Status: Taking; Provider: Gallo Wilson ( )Ondansetron Hcl 8 mg ypqyakTkxwbyhftkty0VKDYV3L as needed for nausea and vomitingJune 2023 11:00pmJune 2023 12:13pmFreeTextSig: TAKE 1 TABLET BY MOUTH 3 TIMES A DAY NEEDED FOR NAUSEA Oral; Note: Source Status: Taking; Refills: 3; Qty: 30 Unspecified; Provider: FAY AMYPrednisone 20 mg tabletDiscontinuedMGJune 2023 11:00pmJun2023 8:14pmOxycodone 10 mg gnbvhoBdhfkgaaeiyc25ADBLIlon times daily as needed for PainJune 2023 11:00pmJuly 2023 8:55amCefepime 2 gram Recon RvpuVlxtpjymrluy2WYRRH9S741095 April 14, 2024 11:00pmJuly 2023 12:28pmSpironolactone 50 mg Tablet Ikqtupbthbdy37CGEUMeqrt366Ahcc 17th, 2024 11:00pmJuly 2023 12:28pm Furosemide 20 mg IlhyqfMnkxbefnbmoe63VFOCVmasg at 6732620Dtuh2023 11:00pm May 30, 2024 12:28pmMagnesium Oxide 420 mg lzocbqEcwmpxtonjdv024JLVUQzlsp906 April 18, 2024 11:00pmJuly 2023 12:28pmAtorvastatin 80 mg hihrooBegizx24 SFWQWguzg97Qqqc 18th, 2024 12:13pmUnknownMetformin 500 mg Tablet Extended Release 24 MsYmbqii429QELAKncih73Jshv 18th, 2024 12:13pmUnknownGabapentin 400 mg bncezpdQgxhucardtec735XMTHIvowj tfwdf15720Cudw 18th, 2024 12:17pmJune 2023 8:43ampainOxycodone 10 mg egfgmbYbixjhyowvdc34LVJVGyhfp 4 hours as needed for Ifqt787487Ayci 2024July 2024 10:49amNeoplasm related pain Neoplasm related pain (acute) (chronic)Morphine 15 mg tablet extended release Ygwebxmcjgmp61VBZJShauw 12 ozkkf45076Zbaa 2024July 2024 8:05am Neoplasm related pain Hepatocellular carcinoma Neoplasm related pain (acute) (chronic) Liver cell carcinomaOxycodone 10 mg srldfaGljdgalbnzad02ZNFJJfxra 4 hours as needed for Hnpn724034Eosv 2024 10:14amNeoplasm related pain Neoplasm related pain (acute) (chronic)Morphine 15 mg tablet extended release Fqwtinpwsvas11UJFTYztbh 12 tneog89242Ubhmlm 2024 10:14am Neoplasm related pain Hepatocellular carcinoma Neoplasm related pain (acute) (chronic) Liver cell carcinomaOndansetron 8 mg tablet,wdeqsfjoknlmdeGrmospiuncoz8MEFLVqssu daily as needed for nausea and ldqugril47543Hzpiztp 2024 9:07amNovember 2024 10:00amMorphine 15 mg tablet extended enxbfjgWukxwzwsvgjs64BFUNQadyq 12 gimhh33738Wkowkur 2024 10:00amNeoplasm related pain Hepatocellular carcinoma Neoplasm related pain (acute) (chronic) Liver cell carcinomaOxycodone 10 mg nxwcjoFfepbiefrtap74GOVOKpqjc 4 hours as needed for Eofe109697Sbzkiyr 5 10:00amNeoplasm related pain Neoplasm related pain (acute) (chronic)Ondansetron 8 mg tablet,disintegrating Wgbnec5EEXJBuzzh daily as needed for nausea and jrqctfxl47333Aqksbmmn 2024 10:00amUnknownMorphine 15 mg tablet extended idsumkcRrftyw10FBMVYimvd 12 hours60 300November 2024Neoplasm related pain Hepatocellular carcinoma Neoplasm related pain (acute) (chronic) Liver cell carcinomaUnknownOxycodone 10 mg angcfcVmtqut90XRVYFvijs 4 hours as needed for Kfde589412Mibfymlc 2024Neoplasm related pain Neoplasm related pain (acute) (chronic)UnknownPromethazine 25 mg tablet Ypqivamyrfqr05SCZUTnonr times daily as needed for nausea and fvearpqv54011Lqdur 2023 11:00pmMarch 2023 11:20amOlanzapine 2.5 mg tabletDiscontinued 2.5MGPODaily at ewbapcb01134Nqezx 2023 11:00pmMay 2023 1:02pm Sumatriptan Succinate 50 mg epnxcjBzgxaqwucnmv3IV.COMPLEXMay 2023 11:00pm April 20, 2025 7:46amtake 1 tab at onset of headache; if no relief may repeat 1 tab after at least 2 hrs; max = 4 tabs/24 hr PONaloxone 4 mg/actuation spray,non-katlatvImpprx6NMYZFYJMWWZXYAShjxon 2 to 3 minutes as needed for opioid overdoseMay 2023 11:00pmspray 1 dose into ONE nostril; alternate nostrils w each dose until help arrivesUnknownMelatonin 1 mg dneczmZccwoe8CBBGCewcl at bedtimeMay 2023 11:00pmUnknownTeclistamab-Cqyv (Tecvayli) 10 mg/mL solutionDiscontinuedSUBCUTMay 2023 11:00pmMay 2023 10:10amAlbuterol Sulfate 2.5 mg /3 mL (0.083 %) solution for nebulizationDiscontinued2.5MG INHALATIONEvery 6 hoursMay 2023 11:00pmAugust 2023 8:28am Teclistamab-Cqyv (Tecvayli) 10 mg/mL solutionDiscontinuedSUBCUTMay 2023 10:09amJuly 2023 12:28pmOn Hold: Resume on 05/06/24. Hold until recommended to be resumed by your primary care doctor and your multiple myeloma specialist patient is unsure of dose at this timeSodium Chloride 3 % solution for ynvxgvvlbnxlJcntyf4BVSFQTJKJJVRBotav times ztjkc432557Xpbeep2023 11:00pm Chronic obstructive pulmonary disease Chronic obstructive pulmonary disease, unspecifiedOn Hold: changing doseUnknown Sodium Chloride 0.9 % solution for dhtaxxijltlaGdtvjj1IDVPXFZEVJVREabht 12 hours 7204731Basgqv2023 1:51obYlqvnlaPgkudoyper-Bmmogkln-Plohcmunhi (Breztri Aerosphere) 160-9-4.8 mcg/actuation HFA aerosol qtecusqDtbcbifgtzxj0ULY INHALATIONTwice dailyAugust 2023 11:00pmAugust 2023 9:12amGabapentin 400 mg dkvltutVxscwmlhwutm528NQVSFqzml times leusc73920Trxqiy 2023 8:46am August 26, 2024 10:55amOxycodone 10 mg pkntllOmuudcmyhhnj66OJBDOWPNX 4-6 HOURS as needed for Gmgc796806Owkfjj 2023September 2023 12:27pm Neoplasm related pain Neoplasm related pain (acute) (chronic)Oxycodone 10 mg ymefnhHtasjklgylmn90JUYX EVERY 4-6 HOURS as needed for Abpr845490Dpbkuvok 2023January 2024 1:11pmNeoplasm related pain Neoplasm related pain (acute) (chronic)Hydrocortisone-Pramoxine 25-18 mg nynwwbnfnvpHvomqs2WCIRGJQshoe hhudy565Sjayyqn 2024 12:00amUnknownAcyclovir 400 mg wyfjxxJlkcji803RXZHBhddr rrdgp896742Puvcfgf 2024 10:30amMultiple myeloma Need for prophylactic antibiotic Multiple myeloma not having achieved remission USP (current) use of antibioticsUnknownLidocaine 5 % mnsvjTuttjc6QOOWNO TOPICALTwice daily as needed for pqjj777Cizohof2024 12:00amUnknown Hydrocortisone (Anusol-Hc) 2.5 % cream with perineal kbulhoxbsiHkgbsx6BGJWNLWT9- 4 TIMES PER DAY as needed for rsthftjnrye820Szqvruk 15th, 2025 12:00amUnknown Sennosides (Senokot) 8.6 mg tabletActive8.6MGPODailyApril 2024 11:00pm UnknownPantoprazole 40 mg tablet,delayed release (DR/EC)Ovsxhfdfnfas44TFQJVomgf dailyJun2024 8:06amJune 2024 8:07amPantoprazole 40 mg tablet,delayed release (DR/EC)Yrqdrdxdalyf29NAXLSuxjk emwoe217Ekvz2024 8:07amJuly 2024 9:36tlEimhbktsul-Lahzjadk-Mpumcscfic (Breztri Aerosphere) 160-9-4.8 mcg/actuation HFA aerosol xbxvvuqWpnluszuxakv6UVZQDZFMWOEAUQsbrg daily March 23, 2024 11:00pmJune 2023 10:00amPantoprazole 40 mg tablet,delayed release (DR/EC)Kfsjinuhlxgk90DNPZPjowhJci 2023 11:00pmJune 2023 5:01pmOxycodone 10 mg nbcyudKuimkenqiqot39OJFIXMWAE 4-6 HOURS as needed for Pain 303552Fhs 2023June 2023 5:02pmNeoplasm related pain Neoplasm related pain (acute) (chronic)Olanzapine 2.5 mg tabletDiscontinued2.5MG PODaily at bedtimeJuly 2023 11:00pmDecember 2023 11:18amOndansetron 8 mg tablet,hrwapfotiprziiFdkyqglblrht2YGBVLtgju 8 hours as neededJuly 2023 11:00pmAugust 2023 9:40amSemaglutide (Ozempic) 0.25 mg or 0.5 mg (2 mg/3 mL) pen injectorDiscontinuedMGSUBCUTJuly 2023 11:00pmAugust 2023 8:29amPrednisone 20 mg mobblbOedtlfpcdruc90GFPEGkckdOciy 2023 11:00pm June 29, 2024 8:29amLevofloxacin 750 mg jfjhlxPzvhlxdttdgt294ADZAHutyhAjqy 2023 11:00pmNov2023 10:04amFurosemide (Lasix) 20 mg tablet Uusatl97MZJSNmowc morningJuly 2023 11:00pmUnknownPantoprazole 40 mg tablet,delayed release (DR/EC)Wyggrvqqyqpj73MXSJMgyksMnyokjo 2023 11:00pm April 20, 2025 8:07amSemaglutide (Ozempic) 0.25 mg or 0.5 mg (2 mg/3 mL) pen injectorActive0.25MGSUBCUTevery weekOctadventhealth [facility] 2023 11:00pmfor 4 weeksUnknown Gabapentin 400 mg gbbnsyiXrecifeznvve221XADUQavln times fcspm92671Gwsnrsv 2023 10:55amSeptember 2024 9:43amOxycodone 10 mg glcjkrRajtgbzlrtor29YXMF EVERY 4-6 HOURS as needed for Rigy073777Cubiaee 2023November 2023 8:59amNeoplasm related pain Neoplasm related pain (acute) (chronic)Cetirizine (Zyrtec) 10 mg cwuzceGnjcwc98 MGPODaily as neededUn[facility]20[facility] 12:00amUnknownDiazepam 5 mg tablet Hdpsvnqdqrlf0GATY.COMPLEX as needed for xrwzjvo670Mfxhfakr 14th, 2024 12:00am April 13, 2025 1:15pmClaustrophobia Claustrophobia5 mg orally 1 dose 30 minutes prior to PET scan, may repeat once 5 minutes before PRN;Oxycodone 10 mg tayhtdWsidwlwazdll04KVDOIIDVX 4-6 HOURS as needed for Mkyc100061Dyrrctlo 2024March 2024 8:22amNeoplasm related pain Neoplasm related pain (acute) (chronic)Magnesium Oxide 400 mg magnesium tablet Nudjojqwjgyh045VFAULipbn699Jaxghjec 2024 12:00amMarch 2024 2:13pm Ondansetron 8 mg tablet,qqqxzninslnpybLkxalglwpvdx9LNUWYhwct 8 hours as needed for nausea and kbdqbner286Nlobe 2024 2:06pmJune 2024 10:11amMorphine 15 mg tablet extended ehkwmjhSuewffgvmjhq79KVGSDzalw 12 jviks34865Lktr , 2024July 2024 8:17amNeoplasm related pain Hepatocellular carcinoma Neoplasm related pain (acute) (chronic) Liver cell carcinomaMorphine 15 mg tablet extended snqpxndCixrbreujadx92VJOE Every 12 gglyo32049Qrez ugust 2024 10:11amNeoplasm related pain Hepatocellular carcinoma Neoplasm related pain (acute) (chronic) Liver cell carcinomaTrazodone 50 mg bzznipVedmvo35UUAOMabbm at bedtime as needed for wwcai36125Seqloeb 2024 11:00pmUnknown Procedures Procedure Date Performed Status XR chest [...] XR hip RT min 2V(w/wo pelvis)* July 17 9:09am completed XR femur RT 2V* July [...] Performing Site Corrected White Blood Count September 27, 2025 8:09am September 27, 2025 8:23am 1.8 10*3/uL Below low normal 3.8-11.6 [facility] [id number] [address] [facility] 440[address]Emqmx Blood CountJanuary 2020 9:55amJanuary 2020 10:16am2.9 10*3/uLBelow low normal4.5-11.0[facility] [address] [facility] 18806Cfgehwoofnd WBC CountNovember 2024 8:09amNovember 2024 8:23am1.8 10*3/uLBelow low normal3.8-11.[facility] [id number] [address] [facility] 82344Rmy Blood CountNovember 2024 8:09amNovember 2024 8:23am3.15 10*6/uLBelow low normal3.60-5.00[facility] [id number] [address] [facility] 11413IksrrfjmotLkxmipfu 2024 8:09amNove2024 8:23am 10.5 g/dLBelow low hmfgaq26.8-15.4F[facility] [id number] [address] [facility] 97054FvxufytoitDxcgjuar 2024 8:09ove2024 8:23am 30.9 %Below low pbcodx12.0-46.4F[facility] [id number] [address] [facility] 75420Avby Corpuscular VolumeNovember 2024 8:09amNove2024 8:23am98.0 wR98-549VwytegymfRegency [facility] [id number] [address] [place] [address] 20821Eomr Corpuscular HemoglobinNovember 2024 8:09amNove2024 8:23am33.5 pg24.7-34.3F[facility] [id number] [address] [place] [address] 24438Wuyr Corpuscular Hemoglobin ConcentNovember 2024 8:09am September 27, 2025 8:23am34.2 g/dL32.0-35.0[facility] [id number] [address] [place] [address] 51677Uew Cell Distribution WidthNovember 2024 8:092024 8:23am18.6 %Above high xwejll04.9-15.3F[facility] [id number] [address] [place] [address] 30460Gajyzzvd CountNovember 2024 8:092024 8:23am52 10*3/uLBelow low aelzih481-890TsiyltnfjReg[facility] [id number] [address] [place] [address] 94925Vput Platelet VolumeNovember 2024 8:092024 8:23am7.9 fL6.3-10.7F[facility] [id number] [address] [facility] 96120Nicqshmbhae (%) (Auto)September 19, 2025 10:00amNovemb2024 11:40am53.9 %.[facility] [id number] [address] [facility] 79459Tkkqkftitww (%) (Auto)September 19, 2025 10:00amNovember 2024 11:40am23.1 %.[facility] [id number] [address] [facility] 64525Xcmualltx (%) (Auto)September 19, 2025 10:00amNovemb2024 11:40am16.2 %.[facility] [id number] [address] [facility] 92044Uiubfbsebqt (%) (Auto)September 19, 2025 10:00amNovember 2024 11:40am5.4 %.[facility] [id number] [address] [facility] 70975Vmzpggcfm (%) (Auto)September 19, 2025 10:00amNovemb2024 11:40am1.4 %.[facility] [id number] [address] [facility] 85907Mtuhsibbe Red Blood Cells % (auto)September 23, 2022 11:40am September 23, 2022 1:57pm0.6 %Above high normal0-0.5F[facility] [id number] [address] [facility] 29804Kbmcozniw RBC Relative Count (auto)September 19, 2025 10:00am September 19, 2025 11:40am0.4 /100{WBC}0-0.5F[facility] [id number] [address] [facility] 10341Qqvsyokygge # (Auto)September 19, 2025 10:00amNovember 2024 11:40am0.7 10*3/uLBelow low normal1.8-7.7F[facility] [id number] [address] [facility] 75936Cgdoxoqhaic # (Auto)September 19, 2025 10:00amNovember 2024 11:40am0.3 10*3/uLBelow low normal1.00-4.8[facility] [id number] [address] [facility] 00241Nlddknfir # (Auto)September 19, 2025 10:00amNovember 2024 11:40am0.2 10*3/uL0.0-0.8[facility] [id number] [address] [facility] 03090Auenipeeedq # (Auto)September 19, 2025 10:00amNovember 2024 11:40am0.1 10*3/uL0.0-0.45[facility] [id number] [address] [facility] 05794Bzomubivb # (Auto)September 19, 2025 10:00amNovember 2024 11:40am0.0 10*3/uL0.0-0.2F[facility] [id number] [address] [facility] 10984Hzarmdvsn NeutrophilsNov2024 8:57amNovember 2024 10:00am75 %Above high dlndyw21-35LvixyurutReg[facility] [id number] [address] [facility] 08313Pypq Neutrophils %September 06, 2025 8:57amNovember 2024 10:00am7 %Above high normal0-5F[facility] [id number] [address] [facility] 71063Vtxcfmeaaxl %September 06, 2025 8:57amNovember 2024 10:00am11 %Below low lpcacn88-07QqcnggwzpRegency [facility] [id number] [address] [place] [address] 21636Faunftxd LymphocytesApril 2024 10:05amApril 2024 11:00am1 %0-12[facility] [id number] [address] [facility] 22899Jkbccrkjq %September 06, 2025 8:57amNovember 2024 10:00am8 %2-11[facility] [id number] [address] [facility] 58417Niqzhzyrlth %July 12, 2025 7:06amSeptember 2024 8:09am27 %Above high normal1-3F[facility] [id number] [address] [facility] 34394Gpuvichqc %June 20, 2025 7:15amAugust 2024 9:47am1 % 0-2F[facility] [id number] [address] [facility] 39288Oaukbsnqjhacvu %April 17, 2025 8:46amJune 2024 10:08am1 %Above high normal0-0[facility] [id number] [address] [facility] 25768Mhitmnoxgs %November 05, 2022 9:06amJanuary 2022 10:11am1 %Above high normal0-0[facility] [id number] [address] [place] [address] 53071Cuabgz CellsDecember 2021 10:15amDecember 2021 12:25pm1 %Above high normal0-0[facility] [id number] [address] [place] [address] 12524Bwnul Cell TypeApril 2022 9:20amApril 2022 1:01pm7 %Above high normal0-0PLASMACYTOID LYMPHSelect [facility] [id number] [address] [place] [address] 02177Tmy Blood Cell MorphologyNovember 2024 10:00amNovember 2024 11:40amN/AFGal[facility] [id number] [address] [place] [address] 25637TmzsnvvvrubfxQejqlewg 2024 9:25amNovember 2024 10:51amSlightRegency [facility] [id number] [address] [place] [address] 53337NvnmawpifrbmdAesef 2024 9:23amMarch 2024 10:36am ModerateReg[facility] [id number] [address] [place] [address] [id number]o 2024 9:25amNovember 2024 10:[facility]amSN[facility] [id number] [address] [facility] [id number] 2024 10:00amNovember 2024 11:40amMarkedFGalion Community Hospital [facility] [id number] [address] [facility] [id number] 2024 7:15amAugust 2024 9:47am [facility]lightReg[facility] [id number] [address] [facility] 55058NfxlufyondedXiqqn 2022 10:20amMarch 2022 11:41am [facility] [id number] [address] [facility] [id number] 2024 8:57amNovember 2024 10:00am [facility] [id number] [address] [facility] [id number] Drop CellsNovember 2024 8:57amNovember 2024 10:00amSNorwalk [facility] [id number] [address] [facility] [id number] 2024 10:00amNovember 2024 11:40amSNorwalk [facility] [id number] [address] [facility] [id number] 2024 7:53amMay 2024 11:[facility]amSW[facility] [id number] [address] [facility] 25903Maivdc-Tesoj BodiesAugust 2021 7:58amAugust 2021 8:38amSNorwalk [facility] [id number] [address] [facility] 28496Cwehkckd CellOctober 2021 12:10pmOctober 2021 1:12pm [facility]erateReg[facility] [id number] [address] [facility] 79770Mdoqn GranulationFebruary 2024 10:10amFebruary 2024 12:33pmModerateRegency Hospital [facility] [id number] [address] [facility] 35993Muplrrmm EstimateNovember 2024 10:00amNovember 2024 11:40amDecreasedNormCleveland Clinic Foundation [facility] [id number] [address] [facility] 45065Vrncj PlateletsNovember 2024 8:57amNovember 2024 10:00am4 /100{WBC}[facility] [id number] [address] [facility] 36765Qyfctcag Morphology CommentNovember 2024 10:00amNovember 2024 11:40amNormalNormCleveland Clinic Foundation Ctr [id number] [address] [facility] 96718Dgaie PlateletsNovember 2024 9:25amNovember 2024 10:51amSlightRegency Hospital Cleveland West Ctr [id number] [address] [facility] [address]Shsdqh for Pathologist ReviewMay 2024 7:53amMay 2024 11:36amOrdered path reviewRegency Hospital Cleveland West Ctr [id number] [address] [facility] 35640Ezgdomvdcej TimeAugust 2024 9:13amAugust 2024 10:19am 14.7 sAbove high normal9.0-12.9A hematocrit value greater than 55% may lead to inaccurate results in coagulation testing. Patientshaving hematocrit values >55% require a special collection tube for coagulation studies. Please contact the laboratory at [phone] for redraw instructions.[facility] [id number] [address] [facility] 66358Rcuenjfvq Time International RatioAugust 2024 9:13amAugust 2024 10:19am1.3INR [...] patients with mechanical heart valves: 3 - 4.5[facility] [id number] [address] [facility] 63686Jfefr ColorApril 2022 9:50amApril 2022 10:20amYellow YellowRegency Hospital [facility] West [facility]tr [id number] [address] [facility] 27841Kidvi ColorSeptember 2024 11:20amSeptember 2024 10:30pmColorlessYellowRegency Hospital [facility] [id number] [address] [facility] 99755Cjjhe AppearanceApril 2022 9:50amApril 2022 10:20am ClearClearFGalion Community Hospital [facility]tr [id number] [address] [facility] 02088Ywrue AppearanceSeptember 2024 11:20amSeptember 2024 10:30pmClearClearRegency Hospital [facility] West [facility]tr [id number] [address] [facility] 69198Oramo Specific GravityApril 2022 9:50amApril 2022 10:20am1.0051.001-1.030[facility] [id number] [address] [facility] 37341Cqmcm Specific GravitySeptember 2024 11:20amSeptember 2024 10:30pm1.0051.001-1.030[facility] [id number] [address] [facility] 53250Kaqtl pHApril 2022 9:50amApril 2022 10:20am6.05.0-9.0 [facility] [id number] [address] [facility] 56913Kpmki pHSeptember 2024 11:20amSeptember 2024 10:30pm6.55.0-9.0[facility] [id number] [address] [facility] 74527Rfiub Leukocyte EsteraseApril 2022 9:50amApril 2022 10:20amNegativeNegativeRegency Hospital [facility]tr [id number] [address] [facility] 87299Hwgmx Leukocyte EsteraseSeptember 2024 11:20amSeptember 2024 10:30pmNegativeNegativeRegency Hospital [facility]tr [id number] [address] [facility] 83003Wqvlm NitriteApril 2022 9:50amApril 2022 10:20am NegativeNegativeRegency Hospital [facility]tr [id number] [address] [facility] 54045Xnjfa NitriteSeptember 2024 11:20amSeptember 2024 10:30pmNegativeNegativeRegency Hospital [facility] [id number] [address] [facility] 10997Ltzsy ProteinApril 2022 9:50amApril 2022 10:20am Negative mg/dLNegativeRegency Hospital [facility]tr [id number] [address] [facility] 19512Kmfpx ProteinSeptember 2024 11:20amSeptember 2024 10:30pmNegative mg/dLNegativeRegency Hospital [facility]tr [id number] [address] [facility] 08517Owthk Glucose (UA)February 06, 2023 9:50amApril 2022 10:20am Normal mg/dLNormalRegency Hospital [facility] West Ctr [id number] [address] [facility] 79396Pzjmf Glucose (UA)July 19, 2025 11:20amSeptember 2024 10:30pmNormal mg/dLNormalRegency Hospital [facility]tr [id number] [address] [facility] 47821Xxquy KetonesApril 2022 9:50amApril 2022 10:20am NegativeNegativeRegency Hospital [facility]tr [id number] [address] [facility] 28993Oxqsx KetonesSeptember 2024 11:20amSeptember 2024 10:30pmNegativeNegativeRegency Hospital [facility] [id number] [address] [facility] 14620Uokps UrobilinogenApril 2022 9:50amApril 2022 10:20am Normal mg/dLNormalRegency Hospital [facility] West [facility]tr [id number] [address] [facility] 85005Njkpf UrobilinogenSept2024 11:20amSeptember 2024 10:30pmNormal mg/dLNormalRegency Hospital [facility] [id number] [address] [facility] 17747Awrwt BilirubinApril 2022 9:50amApril 2022 10:20am NegativeNegativeRegency Hospital [facility] [id number] [address] [facility] 67626Kvkfe BilirubinSeptember 2024 11:20amSeptember 2024 10:30pmNegativeNegativeRegency Hospital [facility] [id number] [address] [facility] 91421Olphd Occult BloodApril 2022 9:50amApril 2022 10:20am NegativeNegativeRegency Hospital [facility] [id number] [address] [facility] 11547Pxzqb Occult BloodSeptember 2024 11:20amSeptember 2024 10:30pmNegativeNegativeRegency Hospital [facility] [id number] [address] [facility] 43902Dcsemvo LevelNovember 2024 8:09amNovember 2024 8:30sq019 mg/dLAbove high vcerai60-685VOZ recommended reference rangeRandom Glucose Reference Range is dependent on time and content of last meal. Glucose of more than 200 mg/dL in a nonstressed, ambulatory subject supports the diagnosisof Diabetes Mellitus.[facility] [id number] [address] [facility] 67786Kvrna Urea NitrogenNovember 2024 8:09amNovember 2024 8:40am12 mg/dL7-[facility] [id number] [address] [place] [address] 86769EsqjmqcggdJjsfbcgc 2024 8:09amNovember 2024 8:40am 0.93 mg/dL0.60-1.20[facility] [id number] [address] [facility] 86580Jhdxosdjx GFR (Non- AmericanFebruary 2022 10:44am December 25, 2022 11:28am> 60 mL/MinRegency Hospital Cleveland West Ctr [id number] [address] [facility] 87256Tlrvygolc GFR (CKD-EPI)September 27, 2025 8:09amNovember 2024 8:40am> 60.0 mL/MinRegency Hospital Cleveland West Ctr [id number] [address] [place] [address] 64284Xylqqmtuw GFR ()December 25, 2022 10:44am December 25, 2022 11:28am> 60 mL/MinGFR estimated reference range: According to KDOQI guidelines, <60 ml/min/1.73m2 is sufficient todiagnose a patient with chronic kidney disease.[facility] [id number] [address] [facility] 73534Dgewgd LevelNovember 2024 8:09amNovember 2024 8:74ke378 mmol/R367-773KlhbaeqefRegency Hospital Cleveland West Ctr [id number] [address] [place] [address] 77606Wwwkflbfx LevelNovember 2024 8:09amNovember 2024 8:40am4.2 mmol/L3.5-5.1FGalion [facility]tr [id number] [address] [place] [address] 20318Zxzazqjz LevelNovember 2024 8:09amNovember 2024 8:78dn193 mmol/S56-541SojybbgulRegency Hospital Cleveland West Ctr [id number] [address] [place], [place] [address]Carbon Dioxide LevelNovember 2024 8:09amNovember 2024 8:40am27.2 mmol/L21.0-31.0[facility] [id number] [address] [facility] 21212Mkfmm GapNov2024 8:09amNovember 2024 8:40am 11.0 mEq/L6.0-15.0[facility] [id number] [address] [place], [place] [address]Calcium LevelNovember 2024 8:09amNovember 2024 8:40am8.8 mg/dL8.6-10.3FGalion [facility] Hospital [facility] [id number] [address] [facility] 95883Iehzxvhjs LevelOctober 2024 9:32amOctober 2024 10:04am1.7 mg/dLBelow low normal1.9-2.7FGalion Community Hospital [facility] [id number] [address] [facility] 85495Nsxnb ProteinNovember 2024 8:09amNovember 2024 8:40am5.5 g/dLBelow low normal6.4-8.9[facility] [id number] [address] [facility] 61364NkwnibqJollkiow 2024 8:09amNovember 2024 8:40am3.3 g/dLBelow low normal3.5-5.7FGal[facility] [id number] [address] [facility] 60783EndomfxmGladfwqf 2024 8:09amNovember 2024 8:40am2.2 g/dLRegency Hospital [facility] West Ctr [id number] [address] [facility] 75437Ognvkwm/Globulin RatioNove2024 8:09amNovember 2024 8:40am1.5FGalion Community Hospital [facility] [id number] [address] [facility] 35825Tvhss BilirubinNovember 2024 8:09amNovember 2024 8:40am1.1 mg/dLAbove high normal0.3-1.0[facility] [id number] [address] [facility] 75699Gedwpgwuw Amino Transf (AST/SGOT)September 27, 2025 8:09am September 27, 2025 8:40am31 U/C15-14MlbvjwuzuRegency Hospital Cleveland West Ctr [id number] [address] [facility] 77231Rptwsog Aminotransferase (ALT/SGPT)September 27, 2025 8:09am September 27, 2025 8:40am17 U/L7-52[facility] [id number] [address] [facility] 26781Rrnbgeyp PhosphataseNovember 2024 8:09amNovember 2024 8:46kt183 U/LAbove high uhfbyg14-598MomxjnfusRegency Hospital [facility]tr [id number] [address] [facility] 37114Nlwzxzn DehydrogenaseMay 2021 9:55amMay 2021 10:10jb876 U/A56-291VtykralsuRegency Hospital [facility] West Ctr [address] [facility] 33551Acgh LevelNovember 2024 10:00amNovemb2024 11:02am52 ug/yI80-632YjprpmiswRegency Hospital [facility] Ctr [id number] [address] [facility] 36641Vsfxq Iron Binding CapacityNovember 2024 10:00amNove2024 11:23yf568 ug/dLBelow low -645OmxrkwlwpRegency Hospital [facility]tr [id number] [address] [facility] 07850Ozfl SaturationNov2024 10:00amNove2024 11:02am21.3 %20-50[facility] [id number] [address] [facility] 01451UgahzgujxpoDxovtodc 2024 10:00amNovemb2024 11:05km435 mg/dLBelow low vumezd128-933OzxxjknbtRegency Hospital [facility] West Ctr [id number] [address] [facility] 88348MrwvozltOqrqjxpv 18th, 2025 10:00amN2024 11:21am 160.4 ng/mL11.0-306.8[facility] [id number] [address] [facility] 04491Jcpjmiwvaoz LevelMay 2020 12:08pmMay 2020 12:55pm 109 mg/dLBelow low -832Zqli less than 200 mg/dl low riskChol 201-239 mg/dl borderline riskChol 240 mg/dl and greater high riskRegency Hospital [facility] Ctr [address] [facility] 04315MYR CholesterolMay 2020 12:08pmMay 2020 12:55pm49 mg/oQ28-66EDA CHOL ATP-III CLASSIFICATION Cardiovascular RiskHDL > or equal to 60 mg/dL LOWHDL < 40 mg/dL [facility] [address] [facility] 10688Xjmwdppjbknun LevelMay 2020 12:08pmMa2020 12:55pm 51 mg/qU25-550ODQC ATP III CLASSIFICATIONTRIG less than 150 mg/dL NormalTRIG 150-199 mg/dL Borderline highTRIG 200-500 mg/dL High TRIG greater than 500 mg/dL Very highStandard traceable to the Center for Disease Conrtrol and Prevention (CDC) test method.[facility] [address] [facility] 82012NRS Cholesterol, CalculatedMa2020 12:08pmMarch 18, 2021 12:55pm50 mg/dL0-100LDL ATP III CLASSIFICATIONLDL less than 100 mg/dL OptimalLDL 100-129 mg/dL Near or above gogkzypYMW527-873 mg/dL Borderline highLDL 160-189 mg/dL HighLDL greater than 189 mg/dL Very highRegency Hospital [facility]tr [address] [facility] 14266KUNJ CholesterolMarch 18, 2021 12:08pmMarch 18, 2021 12:55pm10 mg/dLRegency Hospital [facility] [address] [facility] 05239Utfeuxtlgeb/HDL RatioMa2020 12:08pmMarch 18, 2021 12:55pm2.2<5.0[facility] [address] [facility] 25247Sekourl B12 LevelOctober 2024 9:00amOctober 2024 10:26vb3583 pg/mLAbove high dzhqmi139-013NajlrjycwRegency Hospital [facility] Ctr [id number] [address] [facility] 46622UahocoKcjewlb 2024 9:00amOctober 2024 10:02am9.9 ng/mL>5.9Folate reference range: >5.9 ng/mlThe WHO technical consultation on folate and vitamin u15dwpbpqlwijhx has determined that folate concentrations lessthan 4 ng/ml are considered deficient.[facility] [id number] [address] [facility] 82997Lsdtfnf Stimulating Hormone 3rd GenFebruary 2024 9:45am December 29, 2024 10:50am5.13 u[iU]/mL0.45-5.33[facility] [id number] [address] [facility] 82395Lfzkxtni Creatinine Clearance (ChemNovember 2024 8:09am November 2024 8:40am58.98[facility] [id number] [address] [facility] 42757Jrbdcsmskd H5iKpfz 2024 9:04amJuly 2024 10:49am5.7 %Above high normal4.3-5.6Increased risk for diabetes: 5.7 - 6.4diabetes: >6.4glycemic control for adults with diabetes: <7.0[facility] [id number] [address] [facility] 68180Guqxblbfh Average GlucoseJuly 2024 9:04amJuly 2024 10:45hk389 mg/dLAshtabula General Hospital [id number] [address] [facility] 07033Hzkpg Microalbumin mg/dlMay 2020 12:08pmMay 2020 12:55pm1.1 mg/dL0.0-1.8[facility] [address] [facility] 92590Mgxyj Random CreatinineMay 2020 12:08pmMay 2020 12:72pa847.0 mg/dLNo reference range establishedAshtabula General Hospital [address] [facility] 33945Yiexj Microalbumin/Creatinine RatioMay 2020 12:08pmMay 2020 12:55pm6.0 mg/g0.0-30.030-300 mg/g indicates an increased risk for diabetic nephropathy. Greater than 300 mg/g is consistent with clinical nephropathy. (Am. J. Kidney Disease 1995, 25:107)[facility] [address] [facility] 15248Jyitoebbsbfru TestMarch 2023 11:30amMarch 2023 2:12pmSee commentSee report. Scanned copy available in EMR.[facility] [id number] [address] [facility] 69956Mhelzaeaelmao AcidMay 2022 8:55amMay 2022 2:27tz206 nmol/L0-378This test was developed and its performance characteristicsdetermined by [employer]. It has not been cleared orapproved by the Food and Drug Administration.Performed at: [address] [id number] Director: Maxine Briones MD, Phone: [phone] Marker Alpha FetoproteinNovember 2024 8:57amNovember 2024 4:07am2.1 ng/mL0.0-9.2[facility] Electrochemiluminescence Immunoassay(ECLIA)Values obtained with different assay methods or kits cannotbe used interchangeably. Results cannot be interpreted asabsolute evidence of the presence or absence of malignantdisease.This test is not interpretable in females.Performed at: [address] [id number] Director: Lang Knight PhD, Phone: [phone] ImmunofixationNov2024 8:57am November 2024 12:36pmComment.No monoclonality detected.[facility] LevelOctober 2024 9:00amOctober 2024 9:44ku567 ug/gY34-027Exti test was developed and its performance characteristicsdetermined by [employer]. It has not been cleared orapproved by the Food and Drug Administration. Detection Limit = 5Performed at: [address] [id number] Director: Maxine Briones MD, Phone: [phone] GNovember 2024 8:57amNovember 2024 12:43le111 mg/dLBelow low iwehzn930-6126IbhZjqc Immunoglobulin ANovember 2024 8:57amNovember 2024 12:36pm<5 mg/dLBelow low saipmx07-257Fcbzeu confirmed on concentration.[facility]Pers[facility] Immunoglobulin MNovember 2024 8:57amNovember 2024 12:36pm<5 mg/dLBelow low ekgbgv44-853Bomssi confirmed on concentration.Performed at: [employer] [id number] Director: Lang Knight PhD, Phone: [phone] EOctober 2024 9:00am August 07, 2025 5:36am<2 [IU]/mLBelow low normal6-495Performed at: [employer] [id number] Director: Lang Knight PhD, Phone: [phone] at: [employer] [id number] Director: Maxine Briones MD, Phone: [phone] 2024 9:00amOctober 2024 2:36am29.4 mg/dL19.0-39.0Performed at: [facility] [id number] Director: Lang Knight PhD, Phone: [phone] [employer] 2018 4:14pmFebruary 2018 10:01am1.9 mg/L0.6-2.4[employer] Immulite 2000 Immunochemiluminometric assay (ICMA)Values obtained with different assay methods or kits cannotbe used interchangeably. Results cannot be interpreted asabsolute evidence of the p resence or absence of malignantdisease.Performed at: [employer] [id number] Director: Maxine Briones MD, Phone: [phone] Vitamin D TotalJanuary 2017 9:55amJanuary 2017 8:56am22 ng/mLBelow low normal.Reference Range:All Ages: Target levels 30 - 100[facility] ,25 Dihydroxy Vitamin D2 November 16, 2017 9:55amJanuary 2017 8:56am12 ng/mL.[facility] 1,25 Dihydroxy Vitamin G5Jvnirbg 2017 9:55amJanuary 2017 8:56am10 ng/mL.Performed at: [facility] [employer] [address] [place], [place] [id number] Director: Dwayne Hobbs MD, Phone: [phone] (Cardiovascular)March 11, 2023 8:55amMay 2022 4:07am7.9 umol/L0.0-17.2Performed at: - [facility] [address] [place], [place] [id number] Director: Lang Knight PhD, Phone: [phone] [facility] 2023 11:30amMarch 2023 2:08pmNegativeNegativePerformed at: - [facility] [address] [id number] Director: Maxine Briones MD, Phone: [phone] [facility] Total ProteinNov2024 8:57amNovember 2024 3:08pm5.1 g/dLBelow low normal6.0-8.5[facility] (Send Out)September 06, 2025 8:57amNovember 2024 3:08pm3.1 g/dL2.9-4.4[facility] 5th, 2025 8:57amNovember 2024 3:08pm 0.3 g/dL0.0-0.4[facility] 5th, 2025 8:57am September 07, 2025 3:08pm0.5 g/dL0.4-1.0[facility] Globulins September 06, 2025 8:57amNovember 2024 3:08pm0.8 g/dL0.7-1.3[facility] GlobulinsNov2024 8:57amNovember 2024 3:08pm 0.4 g/dL0.4-1.8[facility] Electrophoresis M-SpikeSeptember 06, 2025 8:57amNovemb2024 3:08pmNot observed g/dLNot ObservedLabCorp (PEP)September 06, 2025 8:57amNovemb2024 3:08pm2.0 g/dLBelow low normal2.2-3.9[facility] /Globulin (PEP)September 06, 2025 8:57amNovemb2024 3:08pm1.60.7-1.7[facility] Electrophoresis NoteNov2024 8:amN2024 3:08pmComment. Protein electrophoresis scan will follow via computer,mail, or social sciences chair delivery.Performed at: [facility] CenterEqtvav[address] [place] [id number] Director: Lang Knight PhD, Phone: [phone] [place] Light Chains, QuantNov2024 8:57amNovemb2024 4:09pm0.7 mg/LBelow low normal3.3-19.4[facility] Lambda Light Chains, QuantNov2024 8:57amNove2024 4:09pm35.0 mg/L Above high normal5.7-26.3[facility] [place]/Lambda Light Chain RatioNove2024 8:57amNovemb2024 4:09pm0.02Below low normal 0.26-1.65Performed at: [facility] [id number] Director: Lang Knight PhD, Phone: [phone] IgGJuly 2017 12:40pmJuly 2017 7:59dn9493 mg/dR290-2911BnfTryj IgAJuly 2017 12:40pmJuly 2017 7:86it595 mg/kU97-282UntHifp IgMJuly 2017 12:40pmJuly 2017 7:20am75 mg/eZ02-716Ogdqzjxgj at: [address] [id number] Director: Lang Knihgt PhD, Phone: [phone] Histoplasma Galactomannan Antigen January 21, 2024 11:50amApril 2023 3:08pmNegative<0.5 ng/mLThis test was developed and its performance characteristicsdetermined by [employer]. It has not been cleared orapproved by the Food and Drug Administration.Performed at: [address] [place] [address] [employer] [address], [place] [id number] Director: Mojgan Sommers MD, Phone: [phone] Immunofixation July 17, 2020 10:13amSept2019 1:36pmSee comment.No monoclonality detected.Performed at: [address] [id number] Director: Lang Knight PhD, Phone: [phone] [facility] Random Total ProteinMay 2021 12:00pmMa2021 11:09am<4.0 mg/dLNot Estab.Verified by repeat analysisWhittier Rehabilitation Hospital Random AlbuminMay 2021 12:00pmMa2021 11:09am 27.0 %.[facility] Vjqzw-0-Wygdiuvue (%)March 26, 2022 12:00pmMa2021 11:09am13.6 %.[facility] Random Omvoc-4-Pktyqpxvm % March 26, 2022 12:00pmMarch 28, 2022 11:09am23.5 %.[facility] Random Beta-Globulin %March 26, 2022 12:00pmMa2021 11:09am21.9 %.[facility] Random Gamma Globulin %March 26, 2022 12:00pmMarch 28, 2022 11:09am14.0 %.[facility] Random PEP M-Jaspal %March 26, 2022 12:00pmMarch 28, 2022 11:09amNot observed %Not ObservedLabCorp Urine Random Prot Electrophor NoteMa2021 12:00pmMarch 28, 2022 11:09am See comment.Protein electrophoresis scan will follow via computer,mail, or social sciences chair delivery.Performed at: [address] [id number] Director: Lang Knight PhD, Phone: [phone] GlucoseJuly 2020 1:24pmJuly 2020 11:21kj456 mg/dLRandom Glucose Reference Range is dependent on time and content of last meal. Glucose of more than 200 mg/dL in a nonstressed, ambulatory subject supports the diagnosis of Diabetes Mellitus.Point of Care testingBedside Glucose CommentJuly 2020 12:57pmJuly 2020 11:14pmSee commentGlu2: Will Repeat TestPoint of Care testingBedside Glucose #2 CommentJuly 2020 12:57pmJuly 2020 11:14pmWishauna notify dr/Xavieroint of Care testingBedside Glucose #3 CommentJuly 2020 12:57pmJuly 2020 11:14pmCleaned meter Point of Care testing Microbiology Results Procedure Source Result Collection Date/Time Result Date/Time Result Comment Performing Site Aerobic Culture Other (See Comment) January 21, 2024 12:50pmMarch 2023 12:23pmRegency Hospital [facility] [id number] [address] [place] [address] 05958Ltma StainOther (See Comment)January 21, 2024 12:50pmMarch 2023 4:11pm[facility] [id number] [address] [place] [address]908 Diagnostic Imaging Reports Author Talha Dexter [facility] HospitalAuthoredJanuary 2017 3:41pmReportDictated Date/TimeDictated ByStatusRadiology ReportJanuary 2017 3:41pmYoung Armando Dexter ObieompleteMercy Health St[facility] [place] [address] [place], [place] [address] Nuclear Medicine Report Signed Patient: Mojgan Snider MR#: [id number] : 1955 Acct:[id number] Age/Sex: 62 / F ADM Date: 8 Loc: XT Room: Type: [facility] RCR Attending Dr: Fabiola Marinelli MD [...] UNREMARKABLE FDG PET IMAGING CPT Code 1: 01905 ICD-10 : C90.0 Dictation Location: ALOMIRANDA Transcribed By: GIOVANNA 11/17/17 1008 Dictated By: Talha Dexter MD 11/16/17 1541 Signed By: <Electronically signed by MD Talha Dexter in OV> 11/17/17 1008 Author Tracey Bah [facility] HospitalAuthoredJuly 2017 10:21amReportDictated Date/TimeDictated ByStatusRadiology ReportJuly 2017 10:21Obie L[facility]aSt[facility] [place] [address] [place] [address] XRay Report Signed Patient: Mojgan Snider MR#: [id number] : 1955 Acct:[id number] Age/Sex: 62 / F ADM Date: 8 Loc: Room: Type: [facility] Attending Dr: Fabiola Marinelli MD Ordering Provider: [...] LYTIC OR BLASTIC BONE LESIONS. Dictation Location: [id number] Transcribed By: GIOVANNA 05/31/18 1029 Dictated By: Tracey Bah MD 05/31/18 1021 Signed By: <Electronically signed by Tracey Bah MD in OV> 05/31/18 1029 Author Jorge Duffy [facility] HospitalAuthoredAuadvanced care hospital of southern new mexicot 2018 3:35pmReportDictated Date/TimeDictated ByStatusRadiology ReportAuadvanced care hospital of southern new mexicot 2018 3:35pmJorge Duffy [facility] Main [place] [id number] XRay Report Signed Patient: Mojgan Snider MR#: [id number] : 1955 Acct:[id number] Age/Sex: 63 / F ADM Date: 9 Loc: XT Room: Type: [facility] Attending Dr: Fabiola Marinelli MD Ordering Provider: [...] 3:41 PM Dictation Location: STRUB-PACS Transcribed By: [facility] 07/01/19 1541 Dictated By: Jorge Duffy DO 07/01/19 1535 Signed By: <Electronically signed by Jorge Duffy DO in OV> 07/01/19 1541 Author Justus Frazier [facility] HospitalAuthoredMar 2019 3:11pmReportDictated Date/TimeDictated ByStatusRadiology ReportMarch 2019 3:11pmJustus Frazier II [facility] Main [address] [address] Nuclear Medicine Report Signed Patient: Mojgan Snider MR#: [id number] : 1955 Acct:[id number] Age/Sex: 64 / F ADM Date: 0 Loc: XT Room: Type: [facility] RCR Attending Dr: Fabiola Marinelli MD [...] Justus Frazier M.D.01/02/2020 3:31 PM Dictation Location: [facility]4 Transcribed By: GIOVANNA 01/02/20 153 Dictated By: Justus Frazier II, MD 01/02/20 1511 Signed By: <Electronically signed by Justus Frazier II, MD in OV> 01/02/20 1531 Author Jorge Duffy [facility] HospitalAuthoOhioHealth Mansfield Hospital 2019 12:02pmReportDictated Date/TimeDictated ByStatusRadiology ReportCleveland Clinic Luther[facility] Hospital 2019 12:02pmApurva KatzSt. Mary's [facility] [place] [address] [place] [address] XRay Report Signed Patient: Mojgan Snider MR#: [id number] : 1955 Acct:[id number] Age/Sex: 64 / F ADM Date: 0 Loc: Room: Type: [facility] Attending Dr: Fabiola Marinelli MD Ordering Provider: [...] in OV> 01/31/20 1210 Author Jorge Duffy [facility] 2019 12:10pmReportDictated Date/TimeDictated ByStatusRadiology ReportMarch 2019 12:10pmYandy KatzSt. Vincent Hospital Main [place] [id number] XRay Report Signed Patient: Mojgan Snider MR#: [id number] : 1955 Acct:[id number] Age/Sex: 64 / F ADM Date: 0 Loc: XT [facility]: [facility] Attending Dr: Fabiola Marinelli MD [...] Jorge Duffy M.D.01/31/2020 12:13 PM Dictation Location: [facility] [facility] Transcribed By: GIOVANNA 01/31/20 1213 Dictated By: Jorge Duffy DO 01/31/20 1210 Signed By: <Electronically signed by Jorge Duffy DO in OV> 01/31/20 1213 Author Jorge Duffy [facility] HospitalAuthoredJuly 2019 10:25amReportDictated Date/TimeDictated ByStatusRadiology ReportJuly 2019 10:25amApurva Katzhamilton county hospitalAngelitaSELECT [facility]ICAL [facility] Main [address] [address] MRI Report Signed Patient: Mojgan Snider MR#: [id number] : 1955 Acct:[id number] Age/Sex: 64 / F ADM Date: 07/30/2 0 Loc: XT Room: Type: [facility] RCR Attending Dr: Fabiola Marinelli MD Ordering Provider: Fabiola Marinelli MD Date of Service: 05/31/20 MR/MR cervical spine wo con: myeloma with neck pain, r/o lytic lesion/unstable ([id number]) XR/XR pre/post mri xray: C90.00 Copies to: [...] Jorge Duffy M.D.05/31/2020 10:39 AM Dictation [facility] Transcribed By: GIOVANNA 05/31/20 1039 Dictated By: Jorge Duffy DO 05/31/20 1025 Signed By: <Electronically signed by Jorge Duffy DO in OV> 05/31/20 1039 Author Talha Dexter [facility] HospitalAuthoredJanuary 2020 11:13amReport Dictated Date/TimeDictated ByStatusRadiology ReportJanuary 2020 11:13am Talha Dexter [facility] [place] [address] [place] [address] XRay Report Signed Patient: Mojgan Snider MR#: [id number] : 1955 Acct:[id number] Age/Sex: 65 / F ADM Date: 1 Loc: Room: Type: [facility] Attending Dr: Fabiola Marinelli MD Ordering Provider: [...] Talha Dexter M.D.11/19/2020 11:19 AM Dictation Location: [id number] Transcribed By: GIOVANNA 11/19/20 1119 Dictated By: Talha Dexter MD 11/19/20 1113 Signed By: <Electronically signed by MD Talha Dexter in OV> 11/19/20 1119 Author Mansoor Vaca [facility] HospitalAuthoredMar 2020 3:33pmReportDictated Date/TimeDictated ByStatusRadiology ReportMarch 2020 3:33pmRichCarrol Chan Jr [facility] Main [address] [address] Nuclear Medicine Report Signed Patient: Mojgan Snider MR#: [id number] : 1955 Acct:[id number] Age/Sex: 65 / F ADM Date: Loc: XT Room: Type: [facility] Attending Dr: Fabiola Marinelli MD Ordering Provider: [...] foot. Note is otherwise made of an Mcgueo-j-Demq on the right. Atherosclerotic disease is seen. The gallbladder is surgically absent. The uterus is also surgically absent. There is a suprapubic ventral hernia containing fat without acute complication. PET/PET f-18 bone subq (nopr) IMPRESSION: Relatively stable findings. Impression dictated by: Mansoor Vaca Jr., M.D.01/14/2021 7:09 PM Dictation Location: [place] [address] Transcribed By: [facility] 01/14/211908 Dictated By: Mansoor Vaca Jr, MD 01/14/21 1533 Signed By: <Electronically signed by Mansoor Vaca Jr, MD in OV> 01/14/211908 Author Mansoor Vaca [facility] 2020 9:18amReportDictated Date/TimeDictated ByStatusRadiology ReportJune 2020 9:18amCarrol Bunch Jr [facility] [place] [address] [place] [address] MRI Report Signed Patient: Mojgan Snider MR#: [id number] : 1955 Acct:[id number] Age/Sex: 65 / F ADM Date: 1 Loc: XT Room: Type: [facility] RCR Attending Dr: Fabiola Marinelli MD [...] Vaca Jr., M.D.04/04/2021 9:31 AM Dictation Location: [place] [address] Transcribed By: [facility] 04/04/21930 Dictated By: Mansoor Vaca Jr, MD 04/04/21917 Signed By: <Electronically signed by Mansoor Vaca Jr, MD in OV> 04/04/21930 Author Jorge Duffy [facility] HospitalAuthoredAtrium Health Huntersville 2020 2:18pmReportDictated Date/TimeDictated ByStatusRadiology ReportJune 2020 2:18pmYandy KatzSt. Vincent Hospital Main [place] [address] [place] [address] Nuclear Medicine Report Signed Patient: Mojgan Snider MR#: [id number] : 1955 Acct:[id number] Age/Sex: 65 / F ADM Date: 1 Loc: Room: Type: [facility] Attending Dr: Fabiola Marinelli MD Ordering Provider: [...] Jorge Duffy M.D.04/22/2021 2:23 PM Dictation Location: [place] [address] Transcribed By: [facility] 04/22/21 1423 Dictated By: Jorge Duffy DO 04/22/21 1418 Signed By: <Electronically signed by Jorge Duffy DO in OV> 04/22/21 1423 Author Mansoor Vaca [facility] HospitalAuthoredJune 2020 9:16amReportDictated Date/TimeDictated ByStatusRadiology ReportJune 2020 9:16amCarrol Bunch Jr [facility] Main [place] [id number] MRI Report Signed Patient: Mojgan Snider MR#: [id number] : 1955 Acct:[id number] Age/Sex: 65 / F ADM Date: 1 Loc: Room: Type: [facility] Attending Dr: Fabiola Marinelli MD Ordering Provider: [...] Vaca Jr., M.D.04/27/2021 9:23 AM Dictation Location: [place] [address] Transcribed By: [facility] 04/27/21922 Dictated By: Mansoor Vaca Jr, MD 04/27/21915 Signed By: <Electronically signed by Mansoor Vaca Jr, MD in OV> 04/27/21922 Author Jorge Duffy [facility] HospitalAuthoredSeptember 2020 1:24pmReport Dictated Date/TimeDictated ByStatusRadiology ReportSeptember 2020 1:24pm Y[facility] KatzSt. [facility] Hospital [facility] [place] [address] [place] [address] XRay Report Signed Patient: Mojgan Snider MR#: [id number] : 1955 Acct:[id number] Age/Sex: 65 / F ADM Date: 1 Loc: XT Room: Type: [facility] Attending Dr: Fabiola Marinelli MD Ordering Provider: Fabiola Marinelli MD Date of Service: 07/17/21 XR/XR knee RT 2V: multiple myeloma patient severe hip pain ([id number]) XR/XR hip RT min 2V(w/wo pelvis)*: multiple myeloma patient severe hip pain ([id number]) XR/XR femur RT 2V*: patient with Myeloma [...] Jorge Duffy M.D.07/17/2021 1:29 PM Dictation Location: [place] [address] Transcribed By: [facility] 07/17/21 1329 Dictated By: Jorge Duffy DO 07/17/21 1324 Signed By: <Electronically signed by Jorge Duffy DO in OV> 07/17/21 1329 Author Mansoor Vaca [facility] HospitalAuthoredSeptember 2020 4:52pmReport Dictated Date/TimeDictated ByStatusRadiology ReportSeptember 2020 4:52pm Carrol Bunch [facility] Main [place] [address] [place] [address] MRI Report Signed Patient: Mojgan Snider MR#: [id number] : 1955 Acct:[id number] Age/Sex: 65 / F ADM Date: 1 Loc: XT Room: Type: [facility] Attending Dr: Fabiola Marinelli MD Ordering Provider: [...] Vaca Jr., M.D.07/23/2021 7:26 PM Dictation Location: [place] [address] Transcribed By: [facility] 07/23/211925 Dictated By: Mansoor Vaca Jr, MD 07/23/21 165 Signed By: <Electronically signed by Mansoor Vaca Jr, MD in OV> 07/23/211925 Author Tracey Bah [facility] 2020 2:30pmReportDictated Date/TimeDictated ByStatusRadiology ReportDece 2020 2:30pmObie Arizmendiheber valley medical centerdeeMercy Health St[facility] Main [place] [address] [place] [address] XRay Report Signed Patient: Mojgan Snider MR#: [id number] : 1955 Acct:[id number] Age/Sex: 66 / F ADM Date: 1 Loc: XT Room: Type: [facility] RCR Attending Dr: Fabiola Marinelli MD [...] or abdominal findings. Patient has a right-sided Yncnvt-v-Mqxa catheter. XR/XR bone survey IMPRESSION: NO OSTEOLYTIC LESIONS SUGGESTIVE OF MULTIPLE MYELOMA. Impression dictated by: Tracey Bah M.D.10/04/2021 2:43 PM Dictation Location: [place] [address] Transcribed By: [facility] 10/04/21 1443 Dictated By: Tracey Bah MD 10/04/21 1430 Signed By: <Electronically signed by MD Tracey Bah in OV> 10/04/21 1443 Author Justus Frazier [facility] HospitalAuthoredOgden Regional Medical Center 2021 12:24pmReportDictated Date/TimeDictated ByStatusRadiology ReportApril 2021 12:24pmJustus Frazier II [facility] Main [place] [id number] XRay Report Signed Patient: Mojgan Snider MR#: [id number] : 1955 Acct:[id number] Age/Sex: 66 / F ADM Date: 2 Loc: Room: Type: [facility] RCR Attending Dr: Fabiola Marinelli MD Ordering Provider: Fabiola Marinelli MD Date of Service: 02/05/22 XR/XR chest 2V*: increased SOB and congestion, fatigued Copies to: Fabiola Marinelli MD~ XR chest 2V* 02/05/2022 10:38 AM SIGNS AND SYMPTOMS: increased SOB and congestion, fatigued PROTOCOL: Frontal and lateral radiograph of the chest COMPARISON: 11/07/2021 FINDINGS: The trachea is midline. There is a right-sided Chotjf-q-Dxnq which is unchanged. Atherosclerotic changes are noted [...] Justus Frazier M.D.02/05/2022 12:25 PM Dictation Location: [place] [address] Transcribed By: [facility] 02/05/22 1225 Dictated By: Justus Frazier II, MD 02/05/22 1224 Signed By: <Electronically signed by Justus Frazier II, MD in OV> 02/05/22 1225 Author Tracey Bah [facility] HospitalAuthoredJune 2021 4:32pmReportDictated Date/TimeDictated ByStatusRadiology ReportJune 2021 4:32pDoris Bah [facility] Main [address] [address] Nuclear Medicine Report Signed Patient: Mojgan Snider MR#: [id number] : 1955 Acct:[id number] Age/Sex: 66 / F ADM Date: 2 Loc: XT Room: Type: [facility] Attending Dr: Fabiola Marinelli MD Copies [...] Tracey Bah M.D.04/30/2022 4:51 PM Dictation Location: [place] [address] Transcribed By: [facility] 04/30/221650 Dictated By: Tracey Bah MD 04/30/22 163 Signed By: <Electronically signed by MD Tracey Bah in OV> 04/30/221650 Author Justus Frazier [facility] HospitalAuthoredJanuary 2022 2:23pmReportDictated Date/TimeDictated ByStatusRadiology ReportJanuary 2022 2:23pmJustus Frazier II [facility] [place] [address] CT Scan Report Signed Patient: Mojgan Snider MR#: [id number] : 1955 Acct:[id number] Age/Sex: 67 / F ADM Date: 3 Loc: XT Room: Type: [facility] RCR Attending Dr: Fabiola Marinelli MD [...] in OV> 12/01/22 1432 Author Carroll Sparrow [facility] HospitalAuthoredApril 2022 4:29pmReportDictated Date/TimeDictated ByStatusRadiology ReportApril 2022 4:29pmJokya Sparrow Jr DOcompSt. Mary's Medical Center Main [place] [address] [place] [address] XRay Report Signed Patient: Mojgan Snider MR#: [id number] : 1955 Acct:[id number] Age/Sex: 67 / F ADM Date: 3 Loc: Room: Type: [facility] RCR Attending Dr: Fabiola Marinelli MD Copies to: Fabiola Marinelli MD~ Ordering Provider: Fabiola Marinelli MD Date of Service: 02/18/23 XR/XR femur RT 2V*: right hip pain and leg pain ([id number]) XR/XR hip RT min 2V(w/wo pelvis)*: right [...] in OV> 02/18/23 1633 Author Justus Frazier [facility] HospitalAuthoredMay 2022 3:16pmReportDictated Date/TimeDictated ByStatusRadiology ReportMay 2022 3:16pmJustus Frazier II [facility] [place] [address] Nuclear Medicine Report Signed Patient: Mojgan Snider MR#: [id number] : 1955 Acct:[id number] Age/Sex: 67 / F ADM Date: 3 Loc: XT Room: Type: [facility] Attending Dr: Fabiola Marinelli MD Copies [...] in OV> 03/09/23 1522 Author Tracey Bah [facility] HospitalAuthoredC[facility] Luther[facility] 2023 2:46pmReportDictated Date/TimeDictated ByStatusRadiology ReportCleveland Clinic Lutheran Hospital 2023 2:46pmObie ArizmendiompSt. Mary's [place] [address] XRay Report Signed Patient: Mojgan Snider MR#: [id number] : 1955 Acct:[id number] Age/Sex: 68 / F ADM Date: 4 Loc: Room: Type: [facility] Attending Dr: Fabiola Marinelli MD Copies [...] in OV> 01/21/24 1447 Author Carroll Sparrow [facility] HospitalAuthoredC[facility] 2023 6:07pmReportDictated Date/TimeDictated ByStatusRadiology ReportCleveland Clinic Lutheran Hospital 2023 6:07pmJokya Sparrow Jr DOcompSt. Mary's Medical Center Main [place] [address] [place] [address] CT Scan Report Signed Patient: Mojgan Snider MR#: [id number] : 1955 Acct:[id number] Age/Sex: 68 / F ADM Date: 4 Loc: [facility]: [facility] Attending Dr: Fabiola Marinelli MD [...] Sparrow Jr., D.O.01/25/2024 6:14 PM Dictation Location: [place] [address] Transcribed By: [facility] 01/25/241813 Dictated By: Carroll Sparrow Jr, DO 01/25/24 180 Signed By: <Electronically signed by Carroll Sparrow Jr, DO in OV> 01/25/241813 Author Carroll Sparrow [facility] HospitalAuthoredC[facility] 2023 6:23pmReportDictated Date/TimeDictated ByStatusRadiology ReportCleveland Clinic Lutheran Hospital 2023 6:23pmJosesavage Sparrow Jr DOcompSt. Mary's Medical Center Main [place] [address] [place] [address] CT Scan Report Signed Patient: Mojgan Snider MR#: [id number] : 1955 Acct:[id number] Age/Sex: 68 / F ADM Date: 4 Loc: Room: Type: [facility] Attending Dr: Fabiola Marinelli MD Copies [...] Sparrow Jr., D.O.01/25/2024 6:24 PM Dictation Location: [place] [address] Transcribed By: [facility] 01/25/241823 Dictated By: Carroll Sparrow Jr, DO 03/25/24 1823 Signed By: <Electronically signed by Carroll Sparrow Jr, DO in OV> 01/25/24 1824 Author Jorge Duffy [facility] HospitalAuthoredSeptember 21, 2024 4:02pmReport Dictated Date/TimeDictated ByStatusRadiology ReportSeptember 21, 2024 4:02pm Jayy [facility]Mer[facility] [address] Nuclear Medicine Report Signed Patient: Mojgan Snider MR#: [id number] : 1955 Acct:[id number] Age/Sex: 69 / F ADM Date: 4 Loc: XT Room: Type: [facility] Attending Dr: Fabiola Marinelli MD Copies [...] in OV> 09/21/24 1607 Author Carroll Sparrow [facility] HospitalAuthoredJune 2024 11:39amReportDictated Date/TimeDictated ByStatusRadiology ReportJune 2024 11:39amJosesavage Sparrow Jr DOcompSt. Mary's Medical Center [facility] [place] [address] [place] [address] MRI Report Signed Patient: Mojgan Snider MR#: [id number] : 1955 Acct:[id number] Age/Sex: 69 / F ADM Date: 5 Loc: Room: Type: [facility] RCR Attending Dr: Fabiola Marinelli MD [...] Jr., D.O. 04/17/2025 11:55 AM Dictation Location: [facility] Transcribed By: PWS 04/17/25 1155 Dictated By: Carroll Sparrow Jr, DO 04/17/25 1139 Signed By: <Electronically signed by Carroll Sparrow Jr, DO in OV> 04/17/25 1155 Author Carroll Sparrow [facility] HospitalAuthoredNovember 2024 10:03amReport Dictated Date/TimeDictated ByStatusRadiology ReportNovember 2024 10:03am Carroll Sparrow Jr DOcompleteMercy Health St[facility] [place] [address] [place] [address] MRI Report Signed Patient: Mojgan Snider MR#: [id number] : 1955 Acct:[id number] Age/Sex: 70 / F ADM Date: 5 Loc: Room: Type: [facility] Attending Dr: Fabiola aMrinelli MD Copies to: [...] Jr., D.OErna 09/18/2025 10:08 AM Dictation Location: [facility] Transcribed By: GIOVANNA 09/18/25 1008 Dictated By: Carroll Sparrow Jr, DO 09/18/25 1003 Signed By: <Electronically signed by Carroll Sparrow Jr, DO in [place]> 09/18/25 1008 Vital Signs Vital Reading Result Reference Range Collection Date/Time Height 62 [in_i] July 19, 2025 11:56abIrngba72.27 kgSeptember 2024 11:13amBody Avdyneuthok51.1 [degF]97.6-99.0September 2024 11:13amHeart Rate77 /min 60-100September 2024 11:13amRespiratory rate18 /lki09-16Qviqzwwch 2024 11:13amOxygen saturation by Pulse %95-100September 2024 11:13amBP Dvybvjft215 mm[Hg]100-140September 2024 11:13amBP Ofkwvpryq32 mm[Hg]60-100September 2024 11:11gvFtodhn04 [in_i]July 27, 2025 9:61piNuyqvu19.18 kgSeptember 2024 9:26amBody Wmieinolobt14.7 [degF] 97.6-99.0September 2024 9:26amHeart Rate77 /kbe52-948Etvkzqrmf 2024 9:26amRespiratory rate16 /dbn06-91Suaypfpgo 25th, 2025 9:26amOxygen saturation by Pulse vdenuleh95 %95-100September 2024 9:26amBP Jzmbsbbg47 mm[Hg] 100-140September 2024 9:26amBP Fuzwcurjb35 mm[Hg]60-100September 2024 9:26amBMI (Body Mass Index)34.7 kg/k1Eqpooqbtl2024 9:59uwLznjal74 [in_i]September 19, 2025 10:07lwRsqusi54.46 kgNovember 2024 10:13amBody Xufdvhmhmnj04.6 [degF]97.6-99.0November 2024 10:13amHeart Rate86 /min 60-100[facility] 20[facility] 10:13amRespiratory rate16 /kdq48-90PzoqybcuSeptember 19, 2025 10:13amOxygen saturation by Pulse ucfdfyhx84 %95-100[facility] 2024 10:13am BP Rrovocmc645 mm[Hg]100-140[facility] 2024 10:13amBP Blwfgwtdq93 mm[Hg] 60-100[facility] 2024 10:13amBMI (Body Mass Index)33.6 kg/p7Mbtrhjxp 2024 10:96wdScfxfb21 [in_i]September 27, 2025 8:20bjVmtgoc38.18 [facility] 2024 9:00amBody Uwkjevpnbyp14.5 [degF]97.6-99.0[facility] 2024 8:30am Heart Rate89 /iap15-880Ttnjhynk 2024 8:30amRespiratory rate16 /aso36-73 September 27, 2025 8:30amOxygen saturation by Pulse yslzhpuh46 %[address] 2024 8:30amBP Dltgtzof569 mm[Hg]100-140[facility] 2024 8:30amBP Zwnpvvpmt42 mm[Hg]60-100[facility] 2024 8:30amBMI (Body Mass Index)34.7 kg/q9Lwbazzvk 2024 8:67xnEklpnj02 [in_i]September 27, 2025 8:30amWeight 86.18 [facility] 2024 9:00amBody Ycsbpkpeipc30.4 [degF]97.6-99.0[facility] 2024 9:38amHeart Rate74 /uvf14-744Hmufiasn 2024 9:38amRespiratory rate18 /dqw95-41EhqffienSeptember 12, 2025 9:38amOxygen saturation by Pulse bgyngzuo13 %95-100[facility] 2024 9:38amBP Ybaldvqo411 mm[Hg]100-140[facility] 2024 9:38amBP Rughenrki13 mm[Hg]60-100September 12, 2025 9:38amInhaled oxygen flow rate2 L[facility] 7:45am Advance Directives Advance Directive Response Recorded Date/ Time Advance Directives No July 1:24pm Insurance Providers Guarantor Mojgan S Snider Address [address] [place] [address]Qffoduc Info.Home Phone: Coverage Status Update:2025 Payer Group Member ID Coverage Type Subscriber Relationship to Subscriber Effective Date Expiration Date Medicaid [id number] Meg Snider Id: [id number] [address] [place] [address] Home Phone: Email: NONESelfMedicare [id number] S Snider Id: [id number] [address] [place] [address] Home Phone: Email: [facility] [id number] S Snider Id: [id number] [address] [place] [address] Home Phone: Email: NONESel Encounters Encounter Location(s) Arrival/Admit Date Discharge/Departure Date Discharge/Departure Disposition Provider(s) Departed [facility] July 19, 2025 9:55am July 19, 2025 9:56am Discharged to home care or self care (routine discharge) Ching Mcclendon APRN Departed Emergency -Emergency Room July 19, 2025 11:40am July 19, 2025 4:13pm Left against medical advice or discontinued care Departed Physician[facility]Provider [facility] 10:25amSeptember 2024 11:18amDischarged to home care or self care (routine discharge)Ching Rubalcava MDDeparted Physician/Provider Office Visit- [facility] PalliativeOctober 2024 2:24pmOctober 2024 2:44pm Discharged to home care or self care (routine discharge)Ching Mcclendon APRNDeparted [facility] 2024 7:42am August 16, 2025 7:43amDischarged to home care or self care (routine discharge)Ching Mcclendon APRNDeparted [facility] 2024 7:48amNoveer 2024 7:49amDischarged to home care or self care (routine discharge)Ching Mcclendon APRNDeparted Physician/Provider Office Visit-[facility] 2024 10:[facility]am[facility] 20[facility] 11:29amDischarged to home care or self care (routine discharge)Lulú Sweeney NP-CDeparted Physician/[facility] 8:13am[facility] 2024 9:18amDischarged to home care or self care (routine discharge)Ching Rubalcava MDRegistered [facility] 2024 8:54amAChing Tsai MD Recent Diagnosis Onset Date Admit Date Cancer associated pain Unknown July 19, 2025 9:55am Hepatocellular carcinoma Unknown [facility] 2024 9:55am Nausea Unknown July 19, 2025 9:55am Hemorrhoids, complicated Unknown [facility] 2024 10:25am Hepatocellular carcinoma Unknown [facility] 2024 10:25am Iron deficiency anemia Unknown July 27, 2025 10:25am Bone marrow hypocellularity Unknown Jul 10:25am Cancer-related pain Unknown July 272024 10:25am [...] 16, 2025 7:42am Multiple myeloma Unknown August 16 7:42am Nausea Unknown August 16 7:42am Anxiety Unknown September 06 7:48am Cancer associated pain Unknown September 06, 2025 7:48am Hepatocellular carcinoma [facility] 2024 7:48am Multiple myeloma Unknown September 06 7:48am Hemorrhoids, complicated Unknown [facility] 2024 10:09am Hepatocellular carcinoma Unknown [facility] 2024 10:09am Iron deficiency anemia Unknown September 19, 2025 10:09am Bone marrow hypocellularity Unknown [facility] 2024 10:09am Cancer-related pain Unknown September 10:09am Encounter for antineoplastic immunotherapy Unkno wn September 19, 2025 10:09am Encounter for coordination of complex care Unkno wn September 19, 2025 10:09am 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 Un known September 19, 2025 10:09am 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) Unknown September 19, 2025 10: 09am Multiple myeloma Unknown September 19, 2025 10:09am Thrombocytopenia due to sequestration Unknown September 19, 2025 10:09am Acute right hip pain Unknown September 272024 8:54am Hematuria Unknown September 27 8:54am Acute thoracic back pain Unknown [facility] 2024 8:54am Bone marrow hypocellularity [facility] 20[facility] 8:54am Cancer-related pain Unknown September 8:54am Chemotherapy-induced neutropenia Unknown September 27, 2025 8:54am Chronic copper deficiency Unknown [facility] 2024 8:54am Degenerative cervical spinal stenosis Unknown September 27, 2025 8:54am Encounter for antineoplastic immunotherapy Unkno wn September 27, 2025 8:54am Encounter for chemotherapy management Unknown September 27, 2025 8:54am Encounter for coordination of complex care Unkno wn September 27, 2025 8:54am History of 2019 novel orta virus disease (COVID-19) Unknown September 27, 2025 8:54am 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 Un known September 27, 2025 8:54am Iron deficiency Unknown November 26th, 2 025 8:54am 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) Unknown September 27, 2025 8:5 4am Multiple myeloma Unknown September 27, 2025 8:54am Neutropenia, unspecified Unknown [facility] 2024 8:54am Obesity Unknown September 27 025 8:54am 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 Unknown September 27, 2025 8:54am Frontal sinusitis Unknown September 27, 2025 8:54am Diabetes mellitus Unknown September 27, 2025 8:54am Fibromyalgia Unknown September 27 8:54am Smoldering multiple myeloma (SMM) Unknown September 27, 2025 8:54am Assessments Diagnosis Onset Date Resolution Status Admit Date Cancer associated pain acuteSeptember 2024 9:55amHepatocellular carcinomaacuteSeptember 2024 9:55amNauseaacuteSeptember 2024 9:55amHemorrhoids, complicatedacute July 27, 2025 10:25amHepatocellular carcinomaacuteSeptember 2024 10:25amIron deficiency anemiaacuteSept2024 10:25amBone marrow hypocellularitychronicSept2024 10:25amCancer-related [...] 2024 7:42amAnxietyacute September 06, 2025 7:48amCancer associated painacuteNovember 2024 7:48am Hepatocellular carcinomaacuteNovember 2024 7:48amMultiple myelomaacute September 06, 2025 7:48amHemorrhoids, complicatedacuteNovember 2024 10:09amHepatocellular carcinomaacuteNovember 2024 10:09amIron deficiency anemiaacuteNovember 2024 10:09amBone marrow hypocellularitychronicNovember 2024 10:09amCancer-related painchronicNovember 2024 10:09am Encounter for antineoplastic immunotherapychronicNovember 2024 10:09am Encounter for coordination of complex carechronicNovember 2024 10:09am 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chronicNovember 2024 10:09am 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)chronicNovember 2024 10:09amMultiple myelomachronicNovember 2024 10:09am Thrombocytopenia due to sequestrationchronicNovember 2024 10:09amAcute right hip painacuteNovember 2024 8:54amHematuriaacuteNovember 2024 8:54amAcute thoracic back painchronicNovember 2024 8:54amBone marrow hypocellularitychronicNovember 2024 8:54amCancer-related painchronic November 2024 8:54amChemotherapy-induced neutropeniachronicNovember 2024 8:54amChronic copper deficiencychronicNovember 2024 8:54am Degenerative cervical spinal stenosischronicNovember 2024 8:54amEncounter for antineoplastic immunotherapychronicNovember 2024 8:54amEncounter for chemotherapy managementchronicNovember 2024 8:54amEncounter for coordination of complex carechronicNovember 2024 8:54amHistory of 2019 novel coronavirus disease (COVID-19)chronicNovember 2024 8:54am 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chronicNovember 2024 8:54am Iron deficiencychronicNovember 2024 8:54am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)chronicNovember 2024 8:54amMultiple myelomachronicNovember 2024 8:54amNeutropenia, unspecifiedchronicSpring [facility] 8:54amObesitychronicSpring [facility] 2024 8:54amThrombocytopenia due to sequestrationchronicSpring [facility] Hospital 2024 8:54amFrontal sinusitisresolvedSpring [facility] 2024 8:54amDiabetes mellitusinactiveNovquail [facility] 2024 8:54am FibromyalgiainactiveSpring View Hospital 2024 8:54amSmoldering multiple myeloma (SMM) inactiveNov2024 8:54am Plan of Treatment Author Fabiola Marinelli [facility]oredSept2024 1:13pmTeclistamab received at [facility]: She was admitted 08/04/2023 for Teclistamab ramp-up [...] IVIG 0.4 mg/kg every 3 months at [facility]--now monthly at --Previous doses held cycle [...] 100% dose 123 mg started 09/28/2024 at [facility]. Tolerated well, continue every 3-week therapy. [...] than 600). -- 07/27/2025: Liver ablation at [facility] 06/22/2025, then was able to resume Teclistamab [...] on most recent labs late August at [facility]. Currently receiving IVIG monthly at [facility] (IgG was 313 on last labs 12/29/2024). [...] for consultation with Dr. Andre Benavidez at [facility] in 2017. Her persistent thrombocytopenia made her [...] the patient in hematology tumor board at [facility]. --Infusion port placed 03/22/2020 at [facility] due to low platelets. No complications. [...] for cytopenias. Evaluation for CAR-T therapy at [facility]. Send myeloma labs and skeletal survey in [...] biopsy, but this would not policy change clerks supervisor, therefore we will give Pomalyst (now decreased [...] and kappa/lambda light chains (ok to see CREDIT PROCESSOR). --09/17/2022: Mojgan is here for cycle 3 [...] novel therapies that are not available at [facility]. We did discuss potential risk of cytokine release syndrome with by specific antibody therapy that would require a short hospital admission at [facility]. For now we set up a follow-up visit in 3 months with myeloma laboratories, sooner if requested by Dr. Lindquist. Patient is in agreement with this plan over this 35-minute moderate complexity visit for coordination of care with [facility]. --10/21/2023: As summarized in the HPI, Mojgan has been on active therapy with Dr. Lindquist of malignant hematology at [facility] since initiation of Teclistamab by specific antibody for refractory myeloma. This was initiated 08/04/2023 with inpatient admission for ramp-up phase. She had grade 1 CRS (fevers) and ICANS (suzanna ICE score 8/10). She then received cycle 2-day 1 weekly at [facility] from 08/17 through last dose 09/08/2023. Her third cycle was delayed due to positive COVID-19 on 09/12/2023 treated with Paxlovid in [place]. She was to resume therapy with Teclistamab on 10/13 but had a recurrent sinus infection treated with antibiotics and steroids by Dr. Lindquist. She received IVIG 09/22/2023 at [facility] for IgG level less than 400. We wrote orders today to resume IVIG here in [place] due to her recurrent infections and persistent pancytopenia (ANC 1000, platelets 35-40,000) secondary to known liver disease/SALGADO cirrhosis. -- We are unable to deliver Teclistamab therapy locally due to pharmacy control issues and she will continue Teclistamab at [facility]. I personally spoke to Dr. Lindquist by [...] primary follow-up for myeloma will be at [facility]. High complexity 1 hour visit. -- 01/21/2024: Updated history from [facility] from patient, notes scanned in, and telephone [...] continues Teclistamab therapy every 3 weeks at [facility] with IVIG infusions. Since last visit with me she had hospitalization for sepsis due to spontaneous bacterial peritonitis. She continues monthly IVIG at [facility] due to severe hypogammaglobulinemia [...] Dr. López. I am investigating with our lining stitcher whether we can transition her Teclistamab infusions to [facility] if we are able to obtain supply of the medication and coverage by insurance. I will communicate with Dr. López whether it is feasible to transition her care locally prior to the winter. If she continues follow-up in [place] we will follow with her every 6 months for local supportive care. We have also reviewed notes from gastroenterology, pulmonary medicine, palliative care, and outside notes from [facility]. High complexity 45-minute visit with 30 minutes coordination of care. --09/15/2024: Patient has been followed at [facility] for Teclistamab therapy, but now that she has been stable for over a year and we have appropriate licensing and in-service here [facility], we will transfer Teclistamab therapy for primary follow-up at [facility]. Orders are written to proceed next [...] laboratories and documentation of Teclistamab therapy at [facility]. --10/05/2024: Here for follow-up after initial dose of Teclistamab therapy at [facility] 09/28/2024. She tolerated this well with no concerning symptoms from last visit 3 weeks ago. Laboratories reviewed showing stable leukopenia wth ANC 800 and no signs or symptoms of infection. Hemoglobin stable at 9.9, platelet count stable at 53,000 without bleeding. Normal renal and hepatic function. [place] and lambda light chains are below the [...] see her sooner after her evaluations at [facility] as noted below. High complexity 45-minute follow-up [...] core morbidities, coordination of care with her Melissa's upcoming procedure and new diagnosis of iron [...] for 6-week follow-up after liver ablation at [facility] 06/22/2025, then was able to resume Teclistamab [...] are requesting results of her cystoscopy from [place] last month. Laboratories reviewed today still show [...] hepatocellular carcinoma. She agrees to referral to [facility] interventional radiology for consideration of potential embolization [...] of right liver lobe hepatocellular carcinoma at [facility] on 01/05/2025. Tolerated well without residual pain. [...] that he would coordinate a phone visit Thursday, Kim 26 for evaluation for repeat ablation of the [...] Segment 6 ablation of hepatocellular carcinoma at [facility] on 06/22/2025. Received 1 unit of platelet [...] evaluation. 12/29/2024: Reviewed recommendations from colorectal surgery CREDIT PROCESSOR who noted the patient was too high [...] may further impair her liver function. [facility] hepatology discussed liver transplant but she is likely no longer a candidate for this given active myeloma. We chose least hepatotoxic regimen for treatment of her active myeloma with 50% dose reduction of Velcade. Liver function remained stable since start of therapy 04/10/2020. --Requested prior liver biopsy and [facility] liver clinic records. Dose reduction 20% Kyprolis due to SALGADO with cirrhosis (normal bilirubin and transaminases). Stable LFTs on now Teclistamab therapy at [facility], transition to [facility]. Now followed by Dr. Sanchez at [facility]. 11/16/2024: Sending to [facility] interventional radiology for new diagnosis of HCC and will determine if she is a candidate for local therapy with embolization or ablation. 12/29/2024, 02/03/2025, 03/16/2025, 04/20/2025, 06/15/2025, 07/27/2025: Continue follow-up with Dr. Sanchez [facility] gastroenterology. Patient has recurrent infections, frequent sinus infections and UTI with IVIG delivered at [facility] monthly. 09/15/2024: With transition Teclistamab therapy to [facility], we will also arrange ongoing IVIG [...] 04/20/2025 : Now continue monthly IVIG at [facility] since transfer of care from . Recurrent [...] previously reviewed her outpatient records from [facility], including review of notes, laboratories, and [...] continues surveillance with liver clinic at [facility] and I will continue to follow [...] Dr. Supa Lindquist for further therapy at [facility] as noted above. -- 10/21/2023: Platelet count has remained in the 35-40,000 range since starting Teclistamab for multiple myeloma. Continue follow-up with Dr. Supa Lindquist for further therapy at [facility]. --01/21/2024, 06/29/2024, 10/05/2024, 11/16/2024: Most recent platelets responding in 50-60,000s range. She has now completed over 1 year of Teclistamab therapy and will continue injections locally. -- 12/29/2024: Platelet count 62,000 but need to recheck next Thursday to determine if she needs platelet transfusion for hepatic ablation procedure at [facility]. Transfuse if platelets less than 50,000. --02/03/2025, [...] from . Discussion with primary oncologist at [facility]. Coordination of workup for chronic cough. Review of outside records--transition of Teclistamab and IVIG therapy to [facility] orders reviewed with [facility] 10/05/2024: New liver lesion on ultrasound coordinating MRI liver with [facility]. 11/16/2024: Coordinating evaluation by interventional radiology and colorectal surgery for further evaluation of HCC and complicated hemorrhoids respectively. 12/29/2024: Coordinating platelet transfusion as needed before hepatic microwave ablation by interventional radiology at [facility], orders for iron deficiency anemia, ongoing Teclistamab [...] and quantitative immunoglobulins surveillance. Author Lulú Sweeney [facility] HospitalAuthoredNovember 2024 4:54pmTeclistamab received at [facility]: She was admitted 08/04/2023 for Teclistamab ramp-up [...] IVIG 0.4 mg/kg every 3 months at [facility]--now monthly at --Previous doses held cycle [...] 100% dose 123 mg started 09/28/2024 at [facility]. Tolerated well, continue every 3-week therapy. [...] than 600). -- 07/27/2025: Liver ablation at [facility] 06/22/2025, then was able to resume Teclistamab therapy with most recent dose 07/13/2025. 07/20/2025 IVIG was held due to IgG level greater than 600. She will be due for next dose in 1 week and may receive both Teclistamab and IVIG as most recent IgG level was 525. -- 09/19/25 teclistamab was scheduled on 09/12 but this was held due to low platelets at 37, low white count at 1.5, bilirubin elevation at 1.3 and general malaise. Again held on 09/19/25. Although platelets improved to 45, ANC still low at 0.7 and patient felt poorly. ------ --IVIG 20 g about once every 4 to 6 weeks with hydrocortisone injections 100 mg each IVIG infusion. IVIG resumed for IgG less than 400 on most recent labs late August at [facility]. Currently receiving IVIG monthly at [facility] (IgG was 313 on last labs 12/29/2024). [...] for consultation with Dr. Andre Benavidez at [facility] in 2016. Her persistent thrombocytopenia made her [...] the patient in hematology tumor board at [facility]. --Infusion port placed 03/22/2020 at [facility] due to low platelets. No complications. [...] for cytopenias. Evaluation for CAR-T therapy at [facility]. Send myeloma labs and skeletal survey in [...] biopsy, but this would not policy change clerks supervisor, therefore we will give Pomalyst (now decreased [...] and kappa/lambda light chains (ok to see CREDIT PROCESSOR). --09/17/2022: Mojgan is here for cycle 3 [...] kappa/lambda ratio 0.06. She will see Dr. Lnidquist--requested change to virtual visit tomorrow due to [...] novel therapies that are not available at [facility]. We did discuss potential risk of cytokine release syndrome with by specific antibody therapy that would require a short hospital admission at [facility]. For now we set up a follow-up visit in 3 months with myeloma laboratories, sooner if requested by Dr. Lindquist. Patient is in agreement with this plan over this 35-minute moderate complexity visit for coordination of care with [facility]. --10/21/2023: As summarized in the HPI, Mojgan has been on active therapy with Dr. Lindquist of malignant hematology at [facility] since initiation of Teclistamab by specific antibody for refractory myeloma. This was initiated 08/04/2023 with inpatient admission for ramp-up phase. She had grade 1 CRS (fevers) and ICANS (suzanna ICE score 8/10). She then received cycle 2-day 1 weekly at [facility] from 08/17 through last dose 09/08/2023. Her third cycle was delayed due to positive COVID-19 on 09/12/2023 treated with Paxlovid in [place]. She was to resume therapy with Teclistamab on 10/13 but had a recurrent sinus infection treated with antibiotics and steroids by Dr. Lindquist. She received IVIG 09/22/2023 at [facility] for IgG level less than 400. We wrote orders today to resume IVIG here in [place] due to her recurrent infections and persistent pancytopenia (ANC 1000, platelets 35-40,000) secondary to known liver disease/SALGADO cirrhosis. -- We are unable to deliver Teclistamab therapy locally due to pharmacy control issues and she will continue Teclistamab at [facility]. I personally spoke to Dr. Lindquist by [...] primary follow-up for myeloma will be at [facility]. High complexity 1 hour visit. -- 01/21/2024: Updated history from [facility] from patient, notes scanned in, and telephone [...] continues Teclistamab therapy every 3 weeks at [facility] with IVIG infusions. Since last visit with me she had hospitalization for sepsis due to spontaneous bacterial peritonitis. She continues monthly IVIG at [facility] due to severe hypogammaglobulinemia [...] Dr. López. I am investigating with our lining stitcher whether we can transition her Teclistamab infusions to [facility] if we are able to obtain supply of the medication and coverage by insurance. I will communicate with Dr. López whether it is feasible to transition her care locally prior to the winter months. If she continues follow-up in [place] we will follow with her every 6 months for local supportive care. We have also reviewed notes from gastroenterology, pulmonary medicine, palliative care, and outside notes from [facility]. High complexity 45-minute visit with 30 minutes coordination of care. --09/15/2024: Patient has been followed at [facility] for Teclistamab therapy, but now that she has been stable for over a year and we have appropriate licensing and in-service here [facility], we will transfer Teclistamab therapy for primary follow-up at [facility]. Orders are written to proceed next [...] laboratories and documentation of Teclistamab therapy at [facility]. --10/05/2024: Here for follow-up after initial dose of Teclistamab therapy at [facility] 09/28/2024. She tolerated this well with no concerning symptoms from last visit 3 weeks ago. Laboratories reviewed showing stable leukopenia wth ANC 800 and no signs or symptoms of infection. Hemoglobin stable at 9.9, platelet count stable at 53,000 without bleeding. Normal renal and hepatic function. [place] and lambda light chains are below the [...] see her sooner after her evaluations at [facility] as noted below. High complexity 45-minute follow-up [...] core morbidities, coordination of care with her [place]'s upcoming procedure and new diagnosis of iron [...] for 6-week follow-up after liver ablation at [facility] 06/22/2025, then was able to resume Teclistamab [...] are requesting results of her cystoscopy from [place] last month. Laboratories reviewed today still show [...] Teclistamab infusions, IVIG infusions, and ongoing symptomatology. --09/19/2025: teclistamab was scheduled on 09/12 but this was held due to low platelets at 37, low white count at 1.5, bilirubin elevation at 1.3 and general malaise. Again held on 09/19/25. Although platelets improved to 45, ANC still low at 0.7 and patient felt poorly. Follow up already scheduled with Dr. Marinelli next week. 10/05/2024: Screening ultrasound ordered by [...] hepatocellular carcinoma. She agrees to referral to [facility] interventional radiology for consideration of potential embolization [...] of right liver lobe hepatocellular carcinoma at [facility] on 01/05/2025. Tolerated well without residual pain. [...] Segment 6 ablation of hepatocellular carcinoma at [facility] on 06/22/2025. Received 1 unit of platelet transfusion the day prior to procedure with no bleeding complications. No residual pain. Alpha-fetoprotein has returned to normal level 4.6. Set up 3- month follow-up liver MRI and AFP prior to mid to late September follow-up. 09/19/25: AFP further decreased from 2.1. On 07/12/2025, AFP was 4.6. To see Dr. Marinelli next week for official MRI review. Patient had severe bilateral leg pains last [...] evaluation. 12/29/2024: Reviewed recommendations from colorectal surgery CREDIT PROCESSOR who noted the patient was too high risk for surgery due to chronic thrombocytopenia. Now using compounded lidocaine and steroid suppositories with improvement of perirectal pain and no active bleeding. 02/03/2025, 03/16/2025, 04/20/2025, 06/15/2025, 07/27/2025: Delayed followup one day due to uncontrolled pain from hemorrhoids, improved . She was previously evaluated by Dr. Schneider [...] may further impair her liver function. [facility] hepatology discussed liver transplant but she is likely no longer a candidate for this given active myeloma. We chose least hepatotoxic regimen for treatment of her active myeloma with 50% dose reduction of Velcade. Liver function remained stable since start of therapy 04/10/2020. --Requested prior liver biopsy and [facility] liver clinic records. Dose reduction 20% Kyprolis due to SALGADO with cirrhosis (normal bilirubin and transaminases). Stable LFTs on now Teclistamab therapy at [facility], transition to [facility]. Now followed by Dr. Sanchez at [facility]. 11/16/2024: Sending to [facility] interventional radiology for new diagnosis of HCC and will determine if she is a candidate for local therapy with embolization or ablation. 12/29/2024, 02/03/2025, 03/16/2025, 04/20/2025, 06/15/2025, 07/27/2025, 09/19/25: Continue follow-up with Dr. Sanchez [facility] gastro[facility]ology. Patient has recurrent infections, frequent sinus infections and UTI with IVIG delivered at [facility] monthly. 09/15/2024: With transition Teclistamab therapy to [facility], we will also arrange ongoing IVIG [...] 04/20/2025 : Now continue monthly IVIG at [facility] since transfer of care from . Recurrent [...] I previously reviewed her outpatient records from [facility], including review of notes, laboratories, [...] continues surveillance with liver clinic at [facility] and I will continue to follow [...] Dr. Supa Lindquist for further therapy at [facility] as noted above. -- 10/21/2023: Platelet count has remained in the 35-40,000 range since starting Teclistamab for multiple myeloma. Continue follow-up with Dr. Supa Lindquist for further therapy at [facility]. --01/21/2024, 06/29/2024, 10/05/2024, 11/16/2024: Most recent platelets responding in 50-60,000s range. She has now completed over 1 year of Teclistamab therapy and will continue injections locally. -- 12/29/2024: Platelet count 62,000 but need to recheck next Thursday to determine if she needs platelet transfusion for hepatic ablation procedure at [facility]. Transfuse if platelets less than 50,000. --02/03/2025, [...] from . Discussion with primary oncologist at [facility]. Coordination of workup for chronic cough. Review of outside records--transition of Teclistamab and IVIG therapy to [facility] orders reviewed with [facility] 10/05/2024: New liver lesion on ultrasound coordinating MRI liver with [facility]. 11/16/2024: Coordinating evaluation by interventional radiology and colorectal surgery for further evaluation of HCC and complicated hemorrhoids respectively. 12/29/2024: Coordinating platelet transfusion as needed before hepatic microwave ablation by interventional radiology at [facility], orders for iron deficiency anemia, ongoing Teclistamab [...] Tests Test Name Ordered Date Scheduled Date N/A January 26, 2020 11:30am N/AJuly 2020 9:05amN/AMarch 2019 11:30amN/AJuly 2020 9:05am Comment (FISH)January 26, 2020 11:30amComment (FISH)May 03, 2021 9:05am Comprehensive Metabolic PanelMarch 2024 9:46pm1 DaysComprehensive Metabolic PanelJanuary [...] June 10, 2023 12:39p m 1 Days Complete Blood Count Auto Diff September 27 7:37am September 27, 2025 8:09am Cytogenetics [employer] January 26, 2020 2:58pm January [...] 10:00am ANC>=500 September 15, 2024 1:46pm Febru 2024 12:00am ANC>=500 September 15, 2024 1:46pm January 18, 2025 11:00pm ANC>=500 January 28, 2025 9:46pm February 152024 11:00pm ANC>=500 January 28, 2025 9:46pm April 11:00pm ANC>=500 September 15, 2024 1:46pm Novem sanjeev 2023 12:00am ANC>=500 September 15, 2024 1:46pm Decem 2023 12:00am ANC>=500 September 15, 2024 1:46pm Janua ry 2024 12:00am ANC>=500 September 15, 2024 1:46pm Febru cody 2024 12:00am ANC>=500 January 28, 2025 9:46pm March 06, 2025 11:00pm ANC>=500 January 28, 2025 9:46pm March 11:00pm ANC>=500 January 28, 2025 9:46pm May [id number] 11:00pm ANC>=500 January 28, 2025 9:46pm June 072024 11:00pm ANC>=500 January 28, 2025 9:46pm Septembe 2024 11:00pm ANC>=500 January 28, 2025 9:46pm August 15, 2025 11:00pm ANC>=500 January 28, 2025 9:46pm September 27, 2025 12:00am Hold & Call Ordering Physici [...] Meet Criteria January 28, 2025 9:46pm September 27, 2025 12:00 am Hemoglobin >/= 8.0g/dL September 15, 2024 1:46p m November 17, 2024 12:00am Hemoglobin >/= 8.0g/dL September 15, 2024 1:46p m December 29, 2024 12:00am Hemoglobin >/= 8.0g/dL January 28, 2025 9:46pm A pril 2024 11:00pm Hemoglobin >/= 8.0g/dL January 28, 2025 9:46pm M ay 2024 11:00pm Hemoglobin >/= 8.0g/dL January 28, 2025 9:46pm N ovember 2024 12:00am Hemoglobin >/= 8.0g/dL September 15, 2024 1:46p m September 28, 2024 12:00am Hemoglobin >/= 8.0g/dL January 28, 2025 9:46pm J jim 2024 11:00pm Hemoglobin >/= 8.0g/dL January 28, 2025 9:46pm S eptember 2024 11:00pm No New Heart Problems Report ed [...] 28, 2025 9:46pm June 07, 2025 11:00pm Apply O2 via Nasal Cannula 4 L to Maintain SpO2 of >=90% January 28, 2025 9:46pm September 27, 2025 12:00am Orders Panel Function Communication Order [...] 11:04a m Orders Panel Function Communication Order September 19, 2025 4:03pm September 19, 2025 4:03pm Orders Panel Function Communication Order September 19, 2025 4:04pm September 19, 2025 4:04pm Orders Panel Function Communication Order April 06, [...] 11:43a m Platelets>=50,000 September 15, 2024 1:46pm Feb ruary 2024 12:00am Platelets>=50,000 September 15, 2024 1:46pm Feb ruary 2024 12:00am Platelets>=50,000 September 15, 2024 1:46pm Mar ch 2024 11:00pm Platelets>=50,000 January 28, 2025 9:46pm February 15, 2025 11:00pm Platelets>=50,000 January 28, 2025 9:46pm March 11:00pm Platelets>=50,000 January 28, 2025 9:46pm April 022024 11:00pm Platelets>=50,000 January 28, 2025 9:46pm May 022024 11:00pm Platelets>=50,000 January 28, 2025 9:46pm June 07, 2025 11:00pm Platelets>=50,000 January 28, 2025 9:46pm Septem 2024 11:00pm Platelets>=50,000 January 28, 2025 9:46pm [...] 28, 2025 11:17am July 19, 2025 11:00pm Immunofixation,Serum July 27, 2025 3:07pm Immunoglobulins A/G/M, Qn, SerSeptember 2024 10:07amImmunoglobulins A/G/M, Qn, SerSeptember 2024 3:07pmFree K+L LT Chains, Qn, SSeptember 2024 3:07pmProtein Electrophoresis, SerumSeptember 2024 3:07pmImmunoglobulins A/G/M, Qn, SerNovember 2024 8:57am5 WeeksFree K+L LT Chains, Qn, SNovember 2024 8:57am5 Weeks Future Medications Future medication information is unavailable Patient Instructions Instruction Admit Date Carfilzomib CyclophosphamideNov2024 8:54am Goals Acute Goals Author Authored Date Maintain/increase activity chema johnson * Understands factors that may lead to activity intolerance * Helps perform self care activities * Maintains maximum range of motion * Increase/regain muscle mass and strength * Maintains VS WNL during activity * Maintain intact skin integrity Updated: 12/15/2022[facility] 1:33pm
--- OUTSIDE RECORDS SUMMARY | 2025-10-03 10:37 | XMS_ITS | Encounter Summary ---
Author Organization [facility] Address [address] [facility] [place] [address] Care Team Providers Care Transition Teacher Name Role Phone Vitaliy Thomson MD Unavailable [phone] Sima Paul RN Unavailable [phone] Power Swain DO Primary Care Provider [phone] Encounter Details DateTypeDepartmentCare Team (Latest Contact Info)Saigkkqaool45/26/2025Patient Outreach [facility] [address] [place] [address] Sima Paul, RN [address] [place] [address] Social History Tobacco UseTypesPacks/DayYears UsedDateSmoking Tobacco: FormerCigarettes [...] on one occasion?Never06/15/2025PHQ-2AnswerDate Recorded Patient Health Questionnaire-2 Dknco58211/11/2024CommentsNoSex and Gender InformationValueDate RecordedSex Assigned at BirthNot on fileLegal SexFemale 01/14/2023 6:38 PM EDTGender IdentityNot on fileSexual OrientationNot on file OccupationIndustryJob Start DateJob End DateRetiredNot on fileNot on fileNot on filedocumented as of this encounter Progress Notes * Sima Paul RN - 09/27/2025 9:19 AM EST Pt calls re: refill need on buspirone 10 mg bid. Pt was started on medication during recent hospitalization and was sent with no refills. Last dispensed 08/30 Pt requesting refill sent to [facility] pharmacy, 30 day supply, as insurance will not cover 90 day supplyper her report. Advised will send to Dr. Swain for approval as we have not sent. <September 27, 2025, 10:06 - Sima Paul RN> Ok to send per Dr. Swain, gregorioill sent * Power Swain DO - 09/27/2025 9:19 AM EST Yes that is okay to send, thank you documented in this encounter Plan of Treatment DateTypeDepartmentCare Team (Latest Contact Info)Crafxljtdvr60/08/2025 9:40 AM ESTOffice Visit [facility] [address] [place] [address] Power Swain DO [address] [address] [place] [address] documented as of this encounter Visit Diagnoses Diagnosis Essential hypertension- Primary Unspecified essential hypertension Depression, unspecified depression type Anxiety Anxiety state, unspecified documented in this encounter Additional Health Concerns AssessmentNoted TimePHQ-9 Depression Total Score: 9:00 AM EST documented as of this encounter Care Teams Team MemberRelationshipSpecialtyStart DateEnd Date Vitaliy Thomson MD [address] [place] [address] PCP - ACO [facility]03/26/23 Power Swain DO [address] [place] [address] PCP - GeneralFamily Medicine04/25/25 Sima Paul, RN [address] [place] [address] Registered NurseFamily Fgiydyfh13/23/23documented as of this encounter
--- OUTSIDE RECORDS SUMMARY | 2025-10-03 10:37 | XMS_ITS | Encounter Summary ---
Author Organization [facility] Address [address] [place] [address] Care Team Providers Care Trainman Name Role Phone Vitaliy Thomson MD Unavailable [phone] Sima Paul RN Unavailable [phone] Power Swain DO Primary Care Provider [phone] Encounter Details DateTypeDepartmentCare Team (Latest Contact Info)Mpqqrunudxf17/01/2025bstract [facility] [address], [facility] 340 [place] [phone] Power Swain DO [address] [facility] [address] [place] [address] Social History Tobacco UseTypesPacks/DayYears UsedDateSmoking Tobacco: FormerCigarettes [...] on one occasion?Never06/15/2025PHQ-2AnswerDate Recorded Patient Health Questionnaire-2 Zcmqq22811/11/2024CommentsNoSex and Gender InformationValueDate RecordedSex Assigned at BirthNot on fileLegal SexFemale 01/14/2023 6:38 PM EDTGender IdentityNot on fileSexual OrientationNot on file OccupationIndustryJob Start DateJob End DateRetiredNot on fileNot on fileNot on filedocumented as of this encounter Plan of Treatment DateTypeDepartmentCare Team (Latest Contact Info)Ucxnjecsyec55/08/2025 9:40 AM ESTOffice Visit [facility] [address], [address] [place] [address] Power Swain DO [address] [facility] 340 [place] [address] documented as of this encounter Visit Diagnoses Not on filedocumented in this encounter Additional Health Concerns AssessmentNoted TimePHQ-9 Depression Total Score: 9:00 AM EST documented as of this encounter Care Teams Team MemberRelationshipSpecialtyStart DateEnd Date Vitaliy Thomson MD [address] [place] [address] PCP - ACO [facility]03/26/23 Power Swain DO [address] [facility] 340 [place] [address] PCP - GeneralFamily Medicine04/25/25 Sima Paul, LES [address] [place] [address] Registered NurseFamily Xyxvwgrx15/23/23documented as of this encounter
--- OUTSIDE RECORDS SUMMARY | 2025-10-03 10:37 | XMS_ITS | Encounter Summary ---
Author Organization [facility] Address [address] [facility], [address] [place] [address] Care Team Providers Care Assistant Producer Name Role Phone Power Swain DO Primary Care Provider [phone] Encounter Details DateTypeDepartmentCare Team (Latest Contact Info)Zqpjmrutojh95/19/2025Abstract [facility] [address] [facility] [address] [place] [id number] Loyd Raymundo [address] [facility] 6 [place] [address] Social History Tobacco UseTypesPacks/DayYears UsedDateSmoking Tobacco: CnbkjcMfaohrtuty4443551 - 2005Smokeless Tobacco: NeverAlcohol UseStandard Drinks/WeekCommentsNever0 (1 standard drink = 0.6 oz pure alcohol)CommentsUnknownSex and Gender InformationValueDate RecordedSex Assigned at ArnfqDcmvqt97/03/2025 12:27 PM EST Legal LtkNrnbyl03/10/2013 1:13 PM ESTGender IwkqridrUjzsxf71/03/2025 12:27 PM ESTSexual VahdfkxiywoZhfuxrjp40/03/2025 12:27 PM ESTdocumented as of this encounter Plan of Treatment DateTypeDepartmentCare Team (Latest Contact Info)Gtgmgajgkws17/09/2025 2:30 PM ESTOffice Visit [facility] Pulmonology [address] [facility] [address] [place] [address] Loyd Raymundo DO [address] [facility] [address] [place] [address] Return in about 4 weeks (around 10/02/2025) for COPD.documented as of this encounter Visit Diagnoses Not on filedocumented in this encounter Additional Health Concerns AssessmentNoted TimeA fall risk assessment has been completed for the patient 09/04/2025 11:23 AM ESTdocumented as of this encounter Care Teams Team MemberRelationshipSpecialtyStart DateEnd Date Power Swain DO [address] [place] [address] PCP - Hlfazzw47/3/25documented as of this encounter
--- OUTSIDE RECORDS SUMMARY | 2025-10-03 10:37 | XMS_ITS ---
Author Organization [facility] Address [address] [facility] [place] [address] Care Team Providers Care Dot Net Architect Name Role Phone Vitaliy Thomson MD Unavailable [phone] Sima Paul RN Unavailable [phone] Power Swain DO Primary Care Provider [phone] 30 Day Monitoring Program Status:Closed (Closed) Start date:08/31/2025 Enrollment date:08/31/2025 End date:09/25/2025 Close reason:Actively enrolled in CCM Overview S/p hospitalization [facility] Discharge 08/30/25 DX: COPD exacerbation. Continued Care and Services Coordination
--- OUTSIDE RECORDS SUMMARY | 2025-10-03 10:37 | XMS_ITS | Encounter Summary ---
Author Organization [facility] Address [address] [place] [address] Care Team Providers Care Shipper Name Role Phone Vitaliy Thomson MD Unavailable [phone] Sima Paul RN Unavailable [phone] Power Swain DO Primary Care Provider [phone] Encounter Details DateTypeDepartmentCare Team (Latest Contact Info)Bimkeozersk96/26/2025External Result Encounter [facility] External Department Unsolicited Fabiola Marinelli MD [address] [place] [address] Social History Tobacco UseTypesPacks/DayYears UsedDateSmoking [...] on one occasion?Never06/15/2025PHQ-2AnswerDate Recorded Patient Health Questionnaire-2 Epzyu54411/11/2024CommentsNoSex and Gender InformationValueDate RecordedSex Assigned at BirthNot on fileLegal SexFemale 01/14/2023 6:38 PM EDTGender IdentityNot on fileSexual OrientationNot on file OccupationIndustryJob Start DateJob End DateRetiredNot on fileNot on fileNot on filedocumented as of this encounter Plan of Treatment DateTypeDepartmentCare Team (Latest Contact Info)Xlbyzjviqaq53/08/2025 9:40 AM ESTOffice Visit [facility] [address], [address] [place] [address] Power Swain, DO [address] [place] [address] documented as of this encounter Procedures Procedure NamePriorityDate/TimeAssociated DiagnosisCommentsCOMPREHENSIVE METABOLIC CXRNSSSII10/26/2025 8:09 AM EST documented in this encounter Results * (ABNORMAL) Comprehensive metabolic panel (09/27/2025 8:09 AM EST)Component ValueRef RangeTest MethodAnalysis TimePerformed AtPathologist SignatureGlucose 108(H)70 - 100 mg/dL09/27/2025 8:40 AM [facility] Comment: Random Glucose Reference Range is dependent on time and content of last meal. Glucose of more than 200 mg/dL in a nonstressed, ambulatory subject supports the diagnosis of Diabetes Mellitus. ADA recommended reference range XHR311 - 25 mg/dL09/27/2025 8:40 AM [facility] CtrCREATININE 0.930.60 - 1.20 mg/dL09/27/2025 8:40 AM [facility] ESTIMATED GFR>60. 8:40 AM [facility] XklQepqpe305 136 - 145 mmol/L111/27/2024 8:40 AM [facility] CtrPotassium, Bld4.23.5 - 5.1 mmol/L111/27/2024 8:40 AM [facility] Siqxudtu46689 - 107 mmol/L111/27/2024 8:40 AM [facility] Carbon Fweqxxn09.221.0 - 31.0 mmol/L111/27/2024 8:40 AM [facility] CtrAnion Gap11.06.0 - 15.011 8:40 AM [facility] CtrCalcium8.88.6 - 10.3 mg/dL09/27/2025 8:40 AM [facility] CtrTOTAL PROTEIN5.5(L)6.4 - 8.9 g/dL09/27/2025 8:40 AM [facility] CtrALBUMIN LEVEL3.3(L)3.5 - 5.7 g/dL09/27/2025 8:40 AM [facility] CtrGLOBULIN2.2g/dL09/27/2025 8:40 AM [facility] CtrALBUMIN/GLOBULIN RATIO1.511 8:40 AM [facility] CtrBILIRUBIN,TOTAL1.1(H)0.3 - 1.0 mg/dL09/27/2025 8:40 AM [facility] CtrASPARTATE AMINO WIGOFIGXGCR0097 - 39 U/L111/27/2024 8:40 AM [facility] CtrALANINE JVRKYBTXXAPFCFCF183 - 52 U/L 09/27/2025 8:40 AM [facility] CtrALKALINE XUTCOKCVDOE083(H)34 - 104 U/L111/27/2024 8:40 AM [facility] CtrCREATININE CLR CALC VRSEGZEV92.9809/27/2025 8:40 AM [facility] CtrSpecimen (Source)Anatomical Location / LateralityCollection Method / VolumeCollection TimeReceived TimeOtherTopography unknown / Jozvixs9609/27/2025 8:09 AM EST 09/27/2025 8:13 AM EST Narrative Authorizing ProviderResult TypeResult StatusFabiola Marinelli MDLAB BLOOD ORDERABLES Final ResultPerforming OrganizationAddressCity/State/ZIP CodePhone Number [facility] [address] [place] [address], [facility] [address] [place] [address] documented in this encounter Visit Diagnoses Not on filedocumented in this encounter Additional Health Concerns AssessmentNoted TimePHQ-9 Depression Total Score: 9:00 AM EST documented as of this encounter Care Teams Team MemberRelationshipSpecialtyStart DateEnd Date Vitaliy Thomson MD [address] [place] [address] PCP - ACO [facility]03/26/23 Power Swain DO [address] [place] [address] PCP - GeneralFamily Medicine04/25/25 Sima Paul RN [address] [place] [address] Registered NurseFamily Krycxzss68/23/23documented as of this encounter
--- OUTSIDE RECORDS SUMMARY | 2025-10-03 10:37 | XMS_ITS | Clinical Summary ---
Author Organization [facility] Address [address] [facility], [address] [place] [address] Care Team Providers Care Well Logger Name Role Phone Power Swain Primary Care Provider Allergies Active AllergyReactionsCriticalityNoted DateCommentsAdhesive TapeRashLow 05/15/2016AmoxicillinSwelling,ZmjtFlzond50/16/0345RrdddkjphaEbfddaxUct89/20/2023 Diclofenac ClevuaRsaubpbmTevvhd54/24/3290EbxbxahgfteoYjxcvYxr18/30/2013Latex EknkyOizcnc31/12/2019QuinolonesHives,WhqtLkg7605/25/2019TetracyclineHivesMedium 04/13/2019 Medications MedicationSigDispense QuantityRefillsLast FilledStart DateEnd DateStatus [...] MG tablet Take 1 tablet by mouth ydeargz99ctive fluticasone (FLONASE) 50 MCG/ACT nasal spray 2 [...] 8 hours as needed for Nausea or Amhateca45/15/2025 Active potassium chloride (MICRO-K) 10 MEQ extended release capsule Take 1 capsule by mouth daily07/25/2025tive sulfamethoxazole-trimethoprim (BACTRIM DS;SEPTRA DS) 800-160 MG per tablet Take 1 tablet by mouth every other dayActive traZODone (DESYREL) 50 MG tablet Take 1 tablet by mouth nwqkvnf9508/09/2025tive melatonin 1 MG tablet Take 2 tablets by mouth nightlyActive prochlorperazine (COMPAZINE) 10 MG tablet Take 1 tablet by mouth every 8 hours as tglhqr9807/28/2025tive simvastatin (ZOCOR) 20 MG tablet Take 1 tablet by mouth ajvjhci89ctive Plrjqvw-Owjflgdgfka-Eccniylbdc (BREZTRI AEROSPHERE) 160-9-4.8 MCG/ACT AERO Indications:Chronic obstructive [...] of Breath 54 g 5Active nystatin (MYCOSTATIN) 697273 UNIT/ML suspension Indications:Oral candidiasisTake 5 mLs by mouth 4 times daily Swish & swallow 200 mL 5Active albuterol (PROVENTIL) (2.5 MG/3ML) 0.083% nebulizer solution Take 3 mLs by nebulization every 4 hours as ojkevh2709/04/2025Discontinued (Ineffective) BREZTRI AEROSPHERE 160-9-4.8 MCG/ACT AERO Inhale [...] may not be ableto afford it. A rfuf-dg-ljdw encounter was performed with the patient today [...] what happened with the hypertonic saline. Orders: Sputwdh-Qfvabtcavnc-Yznymqorfz (BREZTRI AEROSPHERE) 160-9-4.8 MCG/ACT AERO; Inhale 2 [...] needed for Shortness of Breath Encounters DateTypeDepartmentCare JnopEoigbgcnxbj85/19/2025Abstract [facility] Pulmonology [address] [place] [address] Loyd Raymundo DO 09/20/2025Telephone [facility] Pulmonology [address] [facility] [address] [place] [address] Loyd Raymundo DO 09/12/2025Telephone 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; DM2 (diabetes mellitus, type 2); History of tobacco abuse; COPD (chronic obstructive pulmonary disease)09/04/2025bstract [facility] Pulmonology [address] [facility] [address] [place] [address] Loyd Raymundo DO from Last 3 Months Immunizations ImmunizationAdministration DatesNext DueInfluenza, FLUZONE High Dose, (age 65 y+), IM, Trivalent PF, 0.5mL4Pneumococcal, PPSV23, PNEUMOVAX 23, (age 2y+), SC/IM, 0.5mL10/05/2017RSV, AREXVY, (age 60y+), PF, IM, 0.5mL10/18/2024 Family History Medical HistoryRelationNameCommentsEmphysemaFatherHeart DiseaseFatherColon CancerMotherHeart DiseaseMotherRelationNameStatusCommentsFatherMother Social History Tobacco UseTypesPacks/DayYears UsedDateSmoking Tobacco: TstypdNxqrpksazp1897570 - 2005Smokeless Tobacco: Never Tobacco Cessation:Counseling Given: Not Answered Alcohol UseStandard Drinks/WeekCommentsNever0 (1 standard drink = 0.6 oz pure alcohol)CommentsUnknownSex and Gender InformationValueDate RecordedSex Assigned at KcduiHrjcye78/03/2025 12:27 PM ESTLegal InjJrzajc72/10/2013 1:13 PM ESTGender PnmkbfvyVfwpdc73/03/2025 12:27 PM ESTSexual OrientationStraight 09/04/2025 12:27 PM EST Last Filed Vital Signs Vital SignReadingTime TakenCommentsBlood Mqwgbrou825/8209/04/2025 11:05 AM EST Rvvom386109/04/2025 11:05 AM ZBSQdhnzqbbcca42.2 ??C (97.1 ??F)09/04/2025 11:05 AM ESTRespiratory Sjoy283311/04/2024 11:05 AM ESTOxygen Huleswzxgv23%09/04/2025 11:05 AM ESTon room airInhaled Oxygen Concentration--Afcdky28.8 kg (189 lb 3.2 oz) 09/04/2025 11:05 AM RIYKcdomf027.5 cm (5' 2 )09/04/2025 11:05 AM ESTBody Mass Index34.6109/04/2025 11:05 AM EST Plan of Treatment DateTypeDepartmentCare Team (Latest Contact Info)Ljlgnsehkmc18/09/2025 2:30 PM ESTOffice Visit [facility] [address] [place] [address] [address] [place] [address] Loyd Raymundo, [address] [place] [address] [address] [place] [address] Return in about 4 weeks (around 10/02/2025) for COPD.Health MaintenanceDue Date Last YngbCojfxwwoU9J test (Diabetic or Prediabetic)1967Diabetic foot exam 09/11/19678301Rdvxrp19/10/1967Depression Lujlka6709/11/1969Diabetic Alb to Cr ratio (uACR) test1975Diabetic retinal exam1975GFR test (Diabetes, CKD 3-4, OR last GFR 15-59)1975Hepatitis C vhfang3709/11/1975DTaP/Tdap/Td vaccine (1 - Tdap)09/11/19767900Rzvbljhbdos89/10/2002Colorectal Cancer Etijeq3509/11/2002 FIT/FOBT: Average risk2002Fecal-DNA (Cologuard): Average risk2002 Sigmoidoscopy/CT elvazojrhwur97/10/2002Shingles vaccine (1 of 2)2007 Pneumococcal 50+ years Vaccine (3 of 3 - PCV20 or PCV21)2112/06/2016, 07/16/2015Breast cancer xfedya92, 04/06/2020, 03/23/2019, Additional history existsFlu vaccine (#1)512/, 09/12/2019, 10/14/2018, Additional history existsCOVID-19 Vaccine ( - season) 2025DEXA (modify frequency per FRAX score)Rhgucmdvf40/27/2023Respiratory Syncytial Virus (RSV) or age 60 yrs+Mfowbjalg19/17/2024Hepatitis A vaccineAged OutNo longer eligible based on [...] Snider TypeRelation to PatientDate of BirthPhone Billing AddressPersonal/YefjmfRmuu1955 [facility] [place] [address] Advance Directives NameRelationshipHealthcare Agent RelationshipCommunicationMichelle Emil Primary Decision Maker* Care Teams Team MemberRelationshipSpecialtyStart DateEnd Date Power Swain DO [address] [place] [address] [facility] - Gpozuhv21/3/25
--- OUTSIDE RECORDS SUMMARY | 2025-10-03 10:37 | XMS_ITS | Encounter Summary ---
Author Organization [facility] Address [address] [facility] [place] [address] Care Team Providers Care Shade Matcher Name Role Phone Vitaliy Thomson MD Unavailable [phone] Sima Paul RN Unavailable [phone] Power Swain DO Primary Care Provider [phone] Encounter Details DateTypeDepartmentCare Team (Latest Contact Info)Flzzacgszao10/24/2025Patient Outreach [facility] [address] [place] [address] Sima Paul, RN [address] [place] [address] Social History Tobacco UseTypesPacks/DayYears UsedDateSmoking Tobacco: FormerCigarettes [...] on one occasion?Never06/15/2025PHQ-2AnswerDate Recorded Patient Health Questionnaire-2 Fihdm47411/11/2024CommentsNoSex and Gender InformationValueDate RecordedSex Assigned at BirthNot on fileLegal SexFemale 01/14/2023 6:38 PM EDTGender IdentityNot on fileSexual OrientationNot on file OccupationIndustryJob Start DateJob End DateRetiredNot on fileNot on fileNot on filedocumented as of this encounter Progress Notes * Sima Paul RN - 09/25/2025 10:24 AM EST Weekly monitor #4, s/p hospitalization [facility] discharge 08/30 DX: COPD exacerbation. Pt [...] Flowsheet Row Patient Outreach [facility] 09/25/2025 [facility] with Sima Paul RN Week Number [...] Plan of Treatment DateTypeDepartmentCare Team (Latest Contact Info)Gqyykmlwcqr23/08/2025 9:40 AM ESTOffice Visit Critical access hospital [address], [address] [place] [address] Power Swain, [address] [facility] 340 [place] [address] documented as of this encounter Visit Diagnoses Diagnosis Chronic obstructive pulmonary disease, unspecified COPD type (HCC)- Primary Essential hypertension Unspecified essential hypertension documented in this encounter Additional Health Concerns AssessmentNoted TimePHQ-9 Depression Total Score: 9:00 AM EST documented as of this encounter Care Teams Team MemberRelationshipSpecialtyStart DateEnd Date Vitaliy Thomson MD [address] [place] [address] PCP - [facility]CO [facility]03/26/23 Power Swain DO [address] [address] PCP - GeneralFamily Medicine04/25/25 Sima Paul RN [address] [place] [address] Registered NurseFamily Votdtzeg36/23/23documented as of this encounter
--- OUTSIDE RECORDS SUMMARY | 2025-10-03 10:37 | XMS_ITS | Encounter Summary ---
Author Organization [facility] Address [address], [address] [place] [address] Care Team Providers Care Broiler Supervisor Name Role Phone Power Swain DO Primary Care Provider [phone] Encounter Details DateTypeDepartmentCare Team (Latest Contact Info)Cnmzqbodsli92/10/2025Abstract [facility] Pulmonology [address] [place] [address] Loyd Raymundo [address] [place] [address] Social History Tobacco UseTypesPacks/DayYears UsedDateSmoking Tobacco: [id number] - 2005Smokeless Tobacco: NeverAlcohol UseStandard Drinks/WeekCommentsNever0 (1 standard drink = 0.6 oz pure alcohol)CommentsUnknownSex and Gender InformationValueDate RecordedSex Assigned at LfpnyGbkjjy82/03/2025 12:27 PM EST Legal BrgZsytbc59/10/2013 1:13 PM ESTGender QttgilcwRwcgix93/03/2025 12:27 PM ESTSexual IuotmzxfwjsFiktmepy43/03/2025 12:27 PM ESTdocumented as of this encounter Plan of Treatment DateTypeDepartmentCare Team (Latest Contact Info)Bpwvahtnpvw02/09/2025 2:30 PM ESTOffice Visit [facility] [address] [place] [address] [address] [place] [address] Loyd Raymundo DO [address] [facility] [address] [place] [address] Return in about 4 weeks (around 10/02/2025) for COPD.documented as of this encounter Visit Diagnoses Not on filedocumented in this encounter Additional Health Concerns AssessmentNoted TimeA fall risk assessment has been completed for the patient 09/04/2025 11:23 AM ESTdocumented as of this encounter Care Teams Team MemberRelationshipSpecialtyStart DateEnd Date Power Swain DO [address] [place] [address] PCP - Yjshqqe21/3/25documented as of this encounter
--- OUTSIDE RECORDS SUMMARY | 2025-10-03 10:37 | XMS_ITS ---
Author Organization [facility] Address [address] [place] [address] Phone Care Team Providers Care Medical Technologist Prn Name Role Phone Supa Lindquist MD PhD Unavailable [phone] Jessica Grove RN Unavailable Unavailable Lisette Perkins DEPUTY DIRECTOR OF FINANCE-NETWORK OPERATIONS TECHNICIAN Unavailable [phone] Theresa Romano MD PhD Unavailable [phone] Negro Epps MD PhD Unavailable [phone] Power Swain DO Primary Care Provider [phone] Active Problems ProblemNoted DateDiagnosed DateMultiple myeloma not having achieved remission 9447Zjjxyerbcpwg94/13/2023 Assessment & Plan (08/17/2023 7:42 AM EDT): Due to disease and chemotherapy Transfuse for Hgb < 7 g/dL and platelets < 10 k/uL or bleeding Assessment & Plan (08/14/2023 11:02 AM EDT): :: Due to disease and chemotherapy - Transfuse for Hgb < 7 g/dL and platelets < 10 k/uL or bleeding Rtoqikyowtrz84/04/3652Oqzxwjppqneuui68/04/2023Type 2 diabetes ylxptbid71/04/2023 Peripheral cwdxfjkyvy92/04/2023Multiple ixujgat4708/03/2023 Assessment & Plan (09/28/2023 6:52 PM EST): Referral from Dr. Marinelli at [facility]. [facility]US since 2005 Followed at [facility] by Dr. 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 Also clonal evolution in the marrow with [...] Plan, so I will enter these outside Tqrykbbhxk98/19/3421Pnzqlzxokfge06/19/2754Digzlmpnqvkxywhoekcum97/19/2023 Immunodeficiency pvrxmhqi18/06/2021 Assessment & Plan (02/14/2024 6:23 PM EDT): Infection prophylaxis VZV: Acyclovir 400 mg PO BID PJP: Trimethoprim-sulfamethoxazole 800-160 mg PO 3x weekly Hypogammaglobulinemia IVIG given 09/22/23, 10/29/23 ([facility]) 12/08/23 01/12/24 02/12/24. Cont monthly. Assessment & Plan (01/28/2024 12:26 PM EDT): Infection prophylaxis VZV: Acyclovir 400 mg PO BID PJP: Trimethoprim-sulfamethoxazole 800-160 mg PO 3x weekly Hypogammaglobulinemia IVIG given 09/22/23, 10/29/23 ([facility]) 12/08/23 and 01/12/24. Cont monthly. Assessment & Plan (01/14/2024 10:27 AM EDT): Infection prophylaxis VZV: Acyclovir 400 mg PO BID PJP: Trimethoprim-sulfamethoxazole 800-160 mg PO 3x weekly Hypogammaglobulinemia IVIG given 09/22/23, 10/29/23 ([facility]) and 12/08/23. Plan next today 01/12/24. Assessment & Plan (01/03/2024 11:33 AM EST): Infection prophylaxis VZV: Acyclovir 400 mg PO BID PJP: Trimethoprim-sulfamethoxazole 800-160 mg PO 3x weekly Hypogammaglobulinemia IVIG given 09/22/23, 10/29/23 ([facility]) and 12/08/23. Plan next dose 01/05/24. 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)07/11/2019 Primary localized osteoarthrosis of ankle and foot06/01/2019Chronic obstructive pulmonary dqmpozr9404/19/2019Smoldering zfhpust2504/19/2019Thoracic aortic aneurysm without cycudrp5704/15/2019GERD (gastroesophageal reflux disease)04/07/2018Morbid krddjjm9011/11/2017Familial uwykebzivlmwcrcaqals19/12/2015Thrombocytopenia 05/31/2014Sleep apnea04/15/2006Monoclonal apylsrhsnecjaql19/25/2006 Current Treatment and Therapy Plans Blood Products, [...] of 13 cycles startedTeclistamab (Weekly), 28 Day Qjmndw25/* teclistamab-cqyv (Tecvayli) Change in Level of CareSupa Lindquist MD PhD2 of 3 cycles started Resolved Problems ProblemNoted DateDiagnosed DateResolved DateImmunosuppressed uvbmme6908/14/2023 11/27/2023 Assessment & Plan (11/18/2023 12:39 PM EST): Infection prophylaxis VZV: Continue acyclovir 400 mg PO BID PJP: Continue trimethoprim-sulfamethoxazole 800-160 mg PO 3x weekly Hypogammaglobulinemia IVIG given 09/22/23 and 10/29/23 ([facility]) Assessment & Plan (08/17/2023 7:42 AM EDT): - VZV: Continue acyclovir 400 mg PO BID - PJP: Continue trimethoprim-sulfamethoxazole 800-160 mg PO 3x weekly Assessment & Plan (08/14/2023 10:20 AM EDT): - VZV: Continue acyclovir 400 mg PO BID - PJP: Continue trimethoprim-sulfamethoxazole 800-160 mg PO 3x weekly Multiple myeloma, remission status fwovqyzoxit85Obesity, Class III, BMI 40-49.9 (morbid obesity)typical chest pain Vitamin D rjadrlyuin95
--- OUTSIDE RECORDS SUMMARY | 2025-10-03 10:37 | XMS_ITS | Encounter Summary ---
Author Organization [facility] Address [address] [facility], [address] [place] [address] Care Team Providers Care Fish Drier Name Role Phone Power Swain DO Primary Care Provider [phone] Encounter Details DateTypeDepartmentCare Team (Latest Contact Info)Iempmahkuwp57/19/2025Telephone [facility] [address] [place] [address] [address] [place] [address] [facility] [address] [facility] [address] [place] [address] Social History Tobacco UseTypesPacks/DayYears UsedDateSmoking Tobacco: [id number] - 2005Smokeless Tobacco: NeverAlcohol UseStandard Drinks/WeekCommentsNever0 (1 standard drink = 0.6 oz pure alcohol)CommentsUnknownSex and Gender InformationValueDate RecordedSex Assigned at PangdJvjmpr76/03/2025 12:27 PM EST Legal PtdOnglyp25/10/2013 1:13 PM ESTGender CcdlqvnpXbsplv80/03/2025 12:27 PM ESTSexual DcsxzlmllmgWywytrmi93/03/2025 12:27 PM ESTdocumented as of this encounter Plan of Treatment DateTypeDepartmentCare Team (Latest Contact Info)Xbimhvaycwp47/09/2025 2:30 PM ESTOffice Visit [facility] Pul[facility] [address] [facility] [address] [place] [address] Loyd Raymundo DO [address] [facility] [address] [place] [address] Return in about 4 weeks (around 10/02/2025) for COPD.documented as of this encounter Visit Diagnoses Not on filedocumented in this encounter Additional Health Concerns AssessmentNoted TimeA fall risk assessment has been completed for the patient 09/04/2025 11:23 AM ESTdocumented as of this encounter Care Teams Team MemberRelationshipSpecialtyStart DateEnd Date Power Swain DO [address] [place] [address] PCP - Btqejxw18/3/25documented as of this encounter
--- OUTSIDE RECORDS SUMMARY | 2025-10-03 10:37 | XMS_ITS | Encounter Summary ---
Author Organization [facility] Address [address] [place] [address] Care Team Providers Care Geoscience Technician Name Role Phone Vitaliy Thomson MD Unavailable [phone] Sima Paul RN Unavailable [phone] Power Swain DO Primary Care Provider [phone] Encounter Details DateTypeDepartmentCare Team (Latest Contact Info)Zqqjdnaddbq82/26/2025External Result Encounter [facility] Unsolicited Fabiola Marinelli MD [address] [place] [address] Social History Tobacco UseTypesPacks/DayYears UsedDateSmoking [...] on one occasion?Never06/15/2025PHQ-2AnswerDate Recorded Patient Health Questionnaire-2 Iqvzl65811/11/2024CommentsNoSex and Gender InformationValueDate RecordedSex Assigned at BirthNot on fileLegal SexFemale 01/14/2023 6:38 PM EDTGender IdentityNot on fileSexual OrientationNot on file 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, [address] [place] [address] Power Swain, DO [address] [place] [address] NameTypePriorityAssociated DiagnosesDate/TimeCBC auto differentialLabSTAT 09/27/2025 8:09 AM ESTdocumented as of this encounter Procedures Procedure NamePriorityDate/TimeAssociated DiagnosisCommentsSCAN AND CBCSTAT 09/27/2025 8:09 AM EST documented in this encounter Results * (ABNORMAL) SCAN AND CBC (09/27/2025 8:09 AM EST)ComponentValueRef RangeTest MethodAnalysis TimePerformed AtPathologist SignatureWBC1.8(L)3.8 - 11.6 [CFU]/mL09/27/2025 8:23 AM [facility] CtrUNCORRECTED WHITE BLOOD COUNT1.8(L)3.8 - 11.6 10*3/uL09/27/2025 8:23 AM [facility] CtrRBC3.15(L)3.60 - 5.00 10*6/uL09/27/2025 8:23 AM [facility] DphUVQDBUEDGT66.5(L)11.8 - 15.4 g/dL09/27/2025 8:23 AM [facility] TvsVEZGBTRYDP70.9(L)34.0 - 46.4 %09/27/2025 8:23 AM [facility] AprLEN23.080 - 100 fL09/27/2025 8:23 AM [facility] CbqCEI05.524.7 - 34.3 pg09/27/2025 8:23 AM [facility] OwmYJAT27.232.0 - 35.0 g/dL09/27/2025 8:23 AM [facility] CtrRED CELL DISTRIBUTION WIDTH, RDW18.6(H)11.9 - 15.3 %09/27/2025 8:23 AM [facility] CtrPLATELET COUNT52(L) 150 - 450 10*3/uL09/27/2025 8:23 AM [facility] CtrMEAN PLATELET VOLUME, MPV7.96.3 - 10.7 fL09/27/2025 8:23 AM [facility] CtrNEUTROPHILS, %47.1. %09/27/2025 9:20 AM [facility] CtrLYMPHOCYTES, %26.4. %09/27/2025 9:20 AM [facility] CtrMONOCYTE/MACROPHAGE, %20.7. %09/27/2025 9:20 AM [facility] CtrEOSINOPHILS, %4.7. %09/27/2025 9:20 AM [facility] CtrBASOPHILS, %1.1. %09/27/2025 9:20 AM [facility] CtrNRBC0.00 - 0.5 /100{WBC}09/27/2025 9:20 AM [facility] CtrNEUTROPHILS0.8(L)1.8 - 7.7 10*3/uL09/27/2025 9:20 AM [facility] CtrLYMPHOCYTES0.5(L)1.00 - 4.8 10*3/uL09/27/2025 9:20 AM [facility] CtrMONOCYTES0.40.0 - 0.8 10*3/uL09/27/2025 9:20 AM [facility] CtrEOSINOPHILS0.10.0 - 0.45 10*3/uL09/27/2025 9:20 AM [facility] CtrBASOPHILS0.00.0 - 0.2 10*3/uL 09/27/2025 9:20 AM [facility] CtrPOLYCHROMASIASlight 09/27/2025 9:20 AM [facility] CtrPOIKILOCYTOSISSlight 09/27/2025 9:20 AM [facility] CtrANISOCYTOSISSlight 09/27/2025 9:20 AM [facility] CtrMICROCYTOSISSlight 09/27/2025 9:20 AM [facility] CtrOVALOCYTESSlight 09/27/2025 9:20 AM [facility] CtrPLATELET ESTIMATEDecreased Hgzjls4909/27/2025 9:20 AM [facility] CtrPLATELET MORPHOLOGY IsdzlhUomzpj13/26/2025 9:20 AM [facility] CtrLARGE BIEURFBSSUoqlcl02/26/2025 9:20 AM [facility] CtrSpecimen (Source)Anatomical Location / LateralityCollection Method / VolumeCollection TimeReceived TimeBlood (Blood)09/27/2025 8:09 AM EST09/27/2025 8:13 AM EST Narrative Authorizing ProviderResult TypeResult StatusFabiola Marinelli MDLAB BLOOD ORDERABLES Final ResultPerforming OrganizationAddressCity/State/ZIP CodePhone Number [facility] [address] [place] [address], [facility] [address] [place] [address] documented in this encounter Visit Diagnoses Not on filedocumented in this encounter Additional Health Concerns AssessmentNoted TimePHQ-9 Depression Total Score: 9:00 AM EST documented as of this encounter Care Teams Team MemberRelationshipSpecialtyStart DateEnd Date Vitaliy Thomson MD [address] [place] [address] PCP - [facility]03/26/23 Power Swain DO [address] [address] PCP - GeneralFamily Medicine04/25/25 Sima Paul, LES [address] [place] [address] Registered NurseFamily Ybpmpmhy23/23/23documented as of this encounter
--- OUTSIDE RECORDS SUMMARY | 2025-10-03 10:37 | XMS_ITS | Clinical Summary ---
Author Organization [facility] Address [address] [place] [address] Care Team Providers Care Audio Visual Design Engineer Name Role Phone Yinka Thomson MD Unavailable [phone] Sima Paul RN Unavailable [phone] Power Swain DO Primary Care Provider [phone] Allergies Active AllergyReactionsCriticalityNoted DateCommentsAmoxicillinSwelling,RashLow 03/17/20066481ThobnzfzroNxzflvf66/20/2023 Other Reaction(s): Unknown DiclofenacUnknown,Hives05/25/2019Diclofenac BplereEdtzz50/24/2019Diclofenac KbrusfQjrlmkhsNwoqjy42/24/2019DoxycyclineUnknown,Qziyqfsv76/16/2006Erythromycin Hives10/31/2013Erythromycin XkxqKcvmq81/15/2024LatexUnknown,Hives,RashMedium 04/13/2019MoxifloxacinHives,Rash,UwrzoqnLxi14/24/6405DsykiZlmwcqddu35/20/2022 Other Reaction(s): dizziness JmpolinqotOuyoa68/09/2024 Other Reaction(s): Hives, Unknown Reaction Other Reaction(s): Unknown Reaction TetracyclineUnknown,Hives,PyoaBvmazi44/12/2019Wound Dressing AdhesiveUnknown 05/15/2016 Medications MedicationSigDispense QuantityRefillsLast FilledStart [...] and then call 911 0.3 mL ctive Additional Information Patient not taking.Reported on 09/26/2025 naloxone (Narcan) 4 mg/0.1 mL nasal spray Administer 4 mg into affected nostril(s)02/01/2024ctive sulfamethoxazole-trimethoprim (Bactrim DS) 800-160 MG per tablet TAKE 1 TABLET BY MOUTH EVERY THURSDAY, THURSDAY AND SHNRQQ1601/11/2024ctive Teclistamab-cqyv 30 MG/3ML solution 03/21/2024ctive glucose blood (FREESTYLE LITE) test strip Indications:Type 2 diabetes mellitus with other specified complication, unspecified whether ferry terminal agent insulin use (HCC)Use as instructed 100 each ctive FreeStyle lancets USE 1 LANCET EVERY DAY *E11.9*08/29/2024ctive cetirizine (ZyrTEC) 10 MG tablet Indications:Seasonal allergic rhinitis due to pollenTake 1 tablet (10 mg) by mouth at bedtime 90 tablet 5011/16/2025ctive spironolactone (Aldactone) 50 MG tablet Indications:Chronic obstructive pulmonary disease, unspecified COPD type (HCC) Take 1 tablet (50 mg) by mouth Daily 90 tablet 6Active furosemide (Lasix) 20 MG tablet Indications:Essential hypertensionTake 1 tablet (20 mg) by mouth Daily 90 tablet 6Active hydrocortisone (Anusol-HC) 2.5 % rectal cream APPLY RECTALLY 2 TO 4 TIMES PER DAY NEEDED FOR TEPOKCXHSAG14/15/2025Active magnesium oxide (Mag-Ox) 400 (240 Mg) MG tablet Take 400 mg by mouth Daily5Active Semaglutide,0.25 or 0.5MG/DOS, (Ozempic, 0.25 or 0.5 MG/DOSE,) 2 MG/3ML solution pen-injector Indications:Type 2 diabetes mellitus with other specified complication, without long-term current use of insulin ([facility]),Class 1 obesity due to excess calories with [...] Indications:Chronic obstructive pulmonary disease, unspecified COPD type ([facility])1 kit See administration instructions 1 kit 1105Active [...] 1 CAPSULE ONCE A DAY FOR 2 WVWAHV305Active morphine CR (MS Contin) 15 MG 12 hr tablet Take 15 mg by mouth in the morning and 15 mg before bedtime.5Active omeprazole (PriLOSEC) [address] capsule Indications:Gastroesophageal reflux disease, unspecified whether esophagitis presentTake 1 capsule (40 mg) by mouth in the morning. Take before meals. Do not crush or chew. 90 capsule 6Active prochlorperazine (Compazine) 10 MG tablet Take 10 mg by mouth every 8 (eight) hours if wnyehf4607/28/2025tive predniSONE (Deltasone) 20 MG tablet Indications:COPD with acute exacerbation (HCC)Take two tablets (40 mg) daily for five days, then take one tablet (20 mg) daily for five days. Take with food. 15 tablet 5Active metFORMIN XR (Glucophage-XR) 500 MG 24 hr tablet Indications:Diabetes mellitus without complication (HCC)TAKE 1 TABLET BY MOUTH EVERY DAY 90 tablet 5Active Ventolin HFA 108 (90 Base) MCG/ACT inhaler 5Active amLODIPine (Norvasc) 2.5 MG tablet Take 2.5 mg by mouth Daily08/30/2025tive nystatin (Mycostatin) 735530 UNIT/ML suspension Take 500,000 Units by mouth5Active traZODone (Desyrel) 50 MG tablet 5Active ipratropium-albuterol (Duo-Neb) 0.5-2.5 mg/3 mL nebulizer solution Indications:COPD with acute exacerbation (HCC)Take 3 mL by nebulization every 6 (six) hours 1080 mL ctive Cqshbob-Tdnvakmsvqa-Slhegsnzyt (Breztri Aerosphere) 160-9-4.8 MCG/ACT aerosol Indications:COPD with acute exacerbation (HCC)Inhale 2 puffs in the morning and 2 puffs before bedtime. 10.7 g 5Active busPIRone (Buspar) 10 MG tablet Indications:Depression, unspecified depression type,AnxietyTake 1 tablet (10 mg) by mouth in the morning and 1 tablet (10 mg) before bedtime. 60 tablet 6Active metFORMIN XR (Glucophage-XR) 500 MG 24 hr [...] if needed for wheezing 75 mL Discontinued simvastatin (Zocor) 20 MG tablet Indications:Hyperlipidemia, group DTake 1 tablet (20 mg) by mouth at bedtime 90 tablet Discontinued(Discontinued by another clinician) guaiFENesin (Mucinex) 600 MG 12 hr tablet [...] every 6 (six) hours 1080 mL Discontinued(Reorder) Grftccg-Gtjlhyfyfyf-Oleymaazgz (Breztri Aerosphere) 160-9-4.8 MCG/ACT aerosol Indications:COPD with acute exacerbation (HCC)Inhale 2 puffs in the morning and 2 puffs before bedtime. 10.7 g /Discontinued(Reorder) busPIRone (Buspar) 10 MG tablet Take 10 mg by mouth in the morning and 10 mg before bedtime. Discontinued(Reorder) benzonatate (Tessalon) 200 MG capsule Indications:COPD with acute exacerbation (HCC)Take 1 capsule (200 mg) by mouth 3 (three) times a day as needed for cough for up to 7 days Do not crush or chew. 21 capsule Expired carvedilol (Coreg) 12.5 MG tablet Take 12.5 mg by mouth in the morning and 12.5 mg in the evening. Take with meals.09/26/2025Discontinued(Reorder) carvedilol (Coreg) 12.5 MG tablet Indications:Essential hypertensionTake 1 tablet (12.5 mg) by mouth in the morning and 1 tablet (12.5 mg) in the evening. Take with meals. 180 tablet Discontinued(Discontinued by another clinician) Active Problems ProblemNoted DateDiagnosed DateIron deficiency fkamit2409/06/2025Hypomagnesemia 09/06/2025ancer associated pain09/06/20255588Oaiwce95/05/2025Gross hematuria 07/07/2025History of kidney kxaijl7307/07/2025bnormal liver xyivygcrvg84/11/2025 Hepatocellular hfmjabipn27/11/2025Liver mqvigb5001/10/2025leeding hemorrhoids 08/25/20246640Vfgnmmohwlf16/24/9949Wdgbvlrejefcmikd63/24/2024bnormal CXR (chest x-ray)08/10/2024Spontaneous bacterial vrzpdomnhfq48/09/2024aroxysmal atrial nxyvsbhjskoh96/19/2024djustment disorder with mixed anxiety and depressed mood 04/25/2024History of tobacco abuse04/25/2024hronic obstructive pulmonary tricbfw7905/20/2023 Assessment & Plan (03/01/2025 2:47 PM EDT): Lungs around baseline on PE today, continue current tx regimen, refill albuterol nebulizer solution Orders: albuterol (2.5 MG/3ML) 0.083% nebulizer solution; Take 3 mL (2.5 mg) by nebulization every 6 (six) hours if needed for wheezing Nlrmmyesyz11/19/5376EA0 (diabetes mellitus, type 2)05/20/2023Essential wucqdmltzkcq27/19/7075Iabpoagdkjgm72/19/2023Hyperlipidemia, group D005/20/2023 Eqmmefyqrnpkuvehaheqh77/19/2023Immunodeficiency jyfblfsx74/06/2021Multiple myeloma not having achieved atqsiokqk45/08/2020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)07/11/2019Primary localized osteoarthrosis of ankle and foot06/01/2019Thoracic aortic aneurysm without lwxujri2604/15/2019 Hemorrhoids, wmgdqcsaopb66/17/2019GERD (gastroesophageal reflux disease) 04/07/2018 Assessment & Plan [...] mouth Daily Do not crush or chew. Pcbkbenugrns66/11/2018Morbid ydiipnf0011/11/2017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Vitamin D qnvedukwqf23/14/2006 Resolved Problems ProblemNoted DateDiagnosed DateResolved QpbvNadquggbiaxnmy64/11/202507/14/2025 Acute metabolic gmnblhfefvxiiy44acteremia Rhinovirus juppxbgyw71Septic shockHistory of COVID-19004/25/Maxillary sinusitis, iabegah47 Renal meoselys48/04/2023Malignant immunoproliferative disease MI 30.0-30.9,adultThoracic ascending aortic ueaoyrlx96/04/2023Smoldering pgdusxx62H/O abdominal tfpsrbgwsipp303Disorder of nervous system due to type 2 diabetes bzlbajrr183Allergic yxqbmqyy99 Qkvrvtuopsgjsw31therosclerosis of aorta Aneurysm of infrarenal abdominal aortahronic pain syndrome 3Primary xpxoafoy99Leukopenia02/25/2017 3Cirrhosis of liver5375Nublywrdzxxecyiv15/30/2014 07/08/2023Sleep apnea Encounters DateTypeDepartmentCare YiieKcenqxbgzzq96/01/2025bstract [facility] [address], [address] [place] [address] Power Swain DO 09/27/2025Patient Outreach [facility] [address] [place] [address] Sima Paul, LES 09/27/2025External Result Encounter [facility] Unsolicited Fabiola Marinelli MD 09/27/2025External Result Encounter [facility] Unsolicited Fabiola Marinelli MD 09/26/2025Patient Outreach [facility] [address] [place] [address] Sima Paul, LES 09/25/2025Patient Outreach [facility] [address] [place] [address] Sima Paul, LES 09/20/2025Telephone [facility] [address] [place] [address] Power Swain DO Med Dyeetn5409/20/2025bstract [facility] [address] [place] [address] Power Swain DO 09/19/2025External Result Encounter [facility] External Department Unsolicited Fabiola Marinelli MD 09/19/2025External Result Encounter [facility] Unsolicited Fabiola Marinelli MD 09/19/2025Patient Outreach [facility] [address] [place] [address] Sima Paul RN 09/18/2025External Result Encounter [facility] External Department Unsolicited Fabiola Marinelli MD 09/12/2025Patient Outreach [facility] [address] [place] [address] Sima Paul RN 09/12/2025External Result Encounter [facility] External Department Unsolicited Fabiola Marinelli MD 09/12/2025External Result Encounter [facility] Unsolicited Fabiola Marinelli MD 2025 10:00 AM ESTOffice Visit [facility] [address] [place] [address] Power Swain DO COPD with acute exacerbation (HCC) (Primary Dx); Seasonal allergic rhinitis due to pollen; Localized swelling of both lower legs2025bstract [facility] [address] [place] [address] Power Swain DO 09/06/2025External Result Encounter [facility] Unsolicited Fabiola Marinelli MD 09/06/2025External Result Encounter [facility] Unsolicited Fabiola Marinelli MD 09/06/2025External Result Encounter [facility] Unsolicited Fabiola Marinelli MD 09/06/2025Patient Outreach [facility] [address] [place] [address] Sima Paul LES 09/06/2025External Result Encounter [facility] External [facility] Unsolicited Fabiola Marinelli MD 09/06/2025External Result Encounter [facility] Unsolicited Fabiola Marinelli MD 09/06/2025Refill [facility] [address] [place] [address] Poewr Swain DO Diabetes mellitus without complication (HCC)09/04/2025Refill [facility] [address] [place] [address] Power Swain DO COPD with acute exacerbation (HCC)09/04/2025Patient Outreach [facility] [address] [place] [address] Sima Paul, LES 09/02/2025Refill [facility] [address] [place] [address] Power Swain DO Hypertension, unspecified type08/31/2025Refill [facility] [address] [place] [address] Power Swain DO COPD with acute exacerbation (HCC)08/30/2025Telephone [facility] [address] [place] [address] Polina Ferrari MA 08/30/2025Telephone [facility] [address] [place] [address] Power Swain DO 08/29/2025bstract [facility] [address] [place] [address] Power Swain DO 08/29/2025Telephone [facility] [address] [place] [address] Power Swain, DO 08/28/2025bstract [facility] [address] [place] [address] Power Swain, DO 08/28/2025bstract [facility] [address] [place] [address] Power Swain, DO 08/28/2025Telephone [facility] [address] [place] [address] Power Swain, DO 08/28/2025Patient Outreach [facility] [address] [place] [address] Fadi, Fanny, COORDINATE MEASURING MACHINE PROGRAMMER 08/28/2025bstract [facility] [address] [place] [address] Power Swain, DO 08/28/2025Telephone [facility] [address] [place] [address] Power Swain, DO 08/24/2025Telephone [facility] [address] [place] [address] Power Swain, 08/23/2025Results Follow-Up [facility] [address] [place] [address] Power Swain, DO POCT rapid strep A manually resulted, PNEUMONIA (HTRX)08/23/2025bstract [facility] [address] [place] [address] Power Swain, 08/22/2025 2:20 PM EDTFollow-Up [facility] [address] [place] [address] Power Swain DO COPD with acute exacerbation (HCC) (Primary Dx); Pharyngitis, unspecified xtbussct61/20/2025Telephone [facility] [address] [place] [address] Polina Ferrari MA 08/18/2025bstract [facility] [address] [place] [address] Power Swain DO 08/16/2025External Result Encounter [facility] Unsolicited Fabiola Marinelli MD 08/16/2025External Result Encounter [facility] External [facility] Unsolicited Fabiola Marinelli MD 08/16/2025External Result Encounter [facility] Unsolicited Fabiola Marinelli MD 08/14/2025bstract [facility] [address] [place] [address] Power Swain DO 08/11/2025bstract [facility] [address] [place] [address] Power Swain DO 08/11/2025Refill [facility] [address] [place] [address] Polina Ferrari MA Hyperlipidemia, group D; Gastroesophageal reflux disease, unspecified whether esophagitis present 08/09/2025bstract [facility] [address] [place] [address] Power Swain DO 08/09/2025External Result Encounter [facility] Unsolicited Fabiola Marinelli MD 08/09/2025External Result Encounter [facility] Unsolicited Fabiola Marinelli MD 08/04/2025Patient Outreach [facility] [address] [place] [address] Sima Paul, RN 08/04/2025Refill [facility] [address] [place] [address] Power Swain, DO Chronic obstructive pulmonary disease, unspecified COPD type (HCC)08/04/2025 Abstract [facility] [address] [place] [address] Power Swain, 08/02/2025External Result Encounter [facility] Unsolicited Fabiola Marinelli MD 08/02/2025External Result Encounter [facility] External Department Unsolicited Fabiola Marinelli MD 08/02/2025External Result Encounter [facility] External Department Unsolicited Fabiola Marinelli MD 08/02/2025External Result Encounter [facility] External Department Unsolicited Fabiola Marinelli MD 08/02/2025External Result Encounter [facility] External Department Unsolicited Fabiola Marinelli MD 08/02/2025bstract [facility] [address], [facility] [address] [place] [address] Power Swain, 07/21/2025bstract [facility] [address], [facility] [address] [place] [address] Power Swain, 07/21/2025Patient Outreach [facility] [address] [place] [address] Sima Paul, LES 07/20/2025bstract [facility] [address], [facility] [address] [place] [address] Power Swain, 07/19/2025External Result Encounter [facility] External Department Unsolicited Fabiola Marinelli MD 07/19/2025External Result Encounter [facility] External Department Unsolicited Fabiola Marinelli MD 07/18/2025Refill [facility] [address] [place] [address] Power Swain DO Seasonal allergic rhinitis due to xpcwzr8407/12/2025External Result Encounter [facility] External Department Unsolicited Fabiola Marinelli MD 07/12/2025External Result Encounter [facility] External Department Unsolicited Fabiola Marinelli MD 07/12/2025External Result Encounter [facility] Unsolicited Fabiola Marinelli MD 07/07/2025Patient Outreach [facility] [address] [place] [address] Sima Paul RN 07/07/2025Telephone [facility] [address] [place] [address] Polina Ferrari [place] Med Pvxzsw5307/05/2025External Result Encounter [facility] External Department Unsolicited Fabiola Marinelli MD 07/05/2025External Result Encounter [facility] Unsolicited Fabiola Marinelli MD from Last 3 Months Immunizations ImmunizationAdministration DatesNext DueInfluenza, High Dose Seasonal, Preservative Free10/18/2024Influenza, injectable, quadrivalent, preservative free09/12/2019,10/14/2018Influenza, seasonal, pngivdvrsr32/14/2015Influenza, seasonal, intradermal, preservative free10/05/2017Pneumococcal Conjugate PCV 13 07/16/2015Pneumococcal Conjugate PCV (Deferred: Patient Refused) Pneumococcal Polysaccharide QYII734512/06/2016RSV, recombinant, protein subunit RSVpreF, adjuvant reconstitu, 120mcg/0.5mL, PF (Arexvy)10/18/2024 Family History Medical HistoryRelationNameCommentsLung cancerBrotherross smithdied 62No Known ProblemsDaughterHeart diseaseFatherrobert smithHypertensionFatherrobert king 74Prostate cancerFatherrobert smithColon cancerMotherevelyn smithHeart diseaseMotherevelyn smithHypertensionMotherevelyn smithdied 85CancerSibling Breast cancerSisterelsiedied 49HypertensionSonRelationNameStatusCommentsBrother coral kingchevuj1OawjexlhAkfihb3Bqyqncctvcxf smithDeceasedMotherevelyn smithDeceased DznpvLknmjaVzewvruoTjjxmqvAdqgkwsbcdeDdhzmpflf8ManPtyjrh3 Social History Tobacco UseTypesPacks/DayYears UsedDateSmoking Tobacco: FormerCigarettes [...] drinks on one occasion?Never06/15/2025PHQ-2AnswerDate RecordedPatient Health Questionnaire-2 Qhydf367CommentsNoSex and Gender InformationValueDate Recorded Sex Assigned at BirthNot on fileLegal UkkSrtnch02/15/2023 6:38 PM EDTGender IdentityNot on fileSexual OrientationNot on fileOccupationIndustryJob Start Date Job End DateRetiredNot on fileNot on fileNot on file Last Filed Vital Signs Vital SignReadingTime TakenCommentsBlood Ohdowpny236/6809/11/2025 10:06 AM EST Zyvsm289409/11/2025 10:06 AM PEKQuvnljfnisl72.5 ??C (97.7 ??F)2025 10:06 AM ESTRespiratory Xkwt3677 10:06 AM ESTOxygen Xeawheiejm41%2025 10:06 AM ESTInhaled Oxygen Concentration--Rkhszv39.9 kg (196 lb)2025 10:06 AM YAQSylypl705 cm (5' 3 )2025 10:06 AM ESTBody Mass Index34.7209/11/2025 10:06 AM EST Plan of Treatment DateTypeDepartmentCare Team (Latest Contact Info)Uugsckqscmi91/08/2025 9:40 AM ESTOffice Visit [facility] [place] [facility] [address] [place] [address] Power Swain DO [address] [place] [address] Health MaintenanceDue DateLast DoneCommentsCT Oaxziezfxvpn1957FIT-DNA 1957FIT1957FOBT1957 7606Ypltwdfhcnkwl1957Pneumococcal Vaccine: 65+ Years (3 of 3 - PCV20 or PCV21)/01/2017, 07/16/2015 COVID-19 Vaccine ( season)/, 06/19/2021, 05/28/2021Influenza Vaccine (#1)/, 09/12/2019, 10/14/2018, Additional history existsDiabetes: Urine Protein Crvreruqp44, 11/30/2023, 03/04/2021, Additional history existsDiabetes: Hemoglobin A1C /, 12/20/2024, 06/20/2024, Additional history existsMedicare Annual Wellness (AWV)/, 11/30/2023, 12/01/2022, Additional history okikqdDzlmexims38/17/202710/, 10/16/2022, 04/06/2020, Additional history existsDiabetes: Retinopathy Cprwlfykh69/03/2025, 07/01/2024, 05/06/2022, Additional history vrzpsoVrfydjxmmio62, 05/01/2015, 05/01/2015, Additional history existsColorectal Cancer Screening 09/15/2028 Procedures Procedure NamePriorityDate/TimeAssociated DiagnosisCommentsSCAN AND CBCSTAT 09/27/2025 8:09 AM EST COMPREHENSIVE METABOLIC CUEQFXOAY33/26/2025 8:09 AM EST SCAN AND PDEUtdimey95/18/2025 10:00 AM EST PTMUACREGxadkol02/18/2025 10:00 AM EST IRON AND TOTAL IRON BINDING LMTRERNRYaslqls19/18/2025 10:00 AM EST COMPREHENSIVE METABOLIC VCCUVDioeukv79/18/2025 10:00 AM EST MR ABDOMEN W AND WO ZAWCZGZK66/17/2025 10:03 AM EST SCAN AND YKSNJLV2309/12/2025 9:25 AM EST COMPREHENSIVE METABOLIC UBXIEWPWE40/11/2025 9:25 AM EST IMMUNOFIXATION,SERUM ([facility])Ztcbtoh9509/06/2025 8:57 AM EST FREE K+L LT CHAINS, QN, SSTAT111/06/2024 8:57 AM EST PROTEIN ELECTROPHORESIS, ZOONDNUKH29/05/2025 8:57 AM EST IMMUNOGLOBULINS A/G/M, QN, MSOWXAF80/05/2025 8:57 AM EST ALPHA FETOPROTEIN, TUMOR BHFYLGGECZ70/05/2025 8:57 AM EST DIFF AND QJUNBXP1409/06/2025 8:57 AM EST COMPREHENSIVE METABOLIC OLAQFPGCC05/05/2025 8:57 AM EST POCT RAPID STREP DJqqruvx11/21/2025 3:10 PM EDT COPD with acute exacerbation (HCC) PNEUMONIA (HTRX)Axilexn9408/22/2025 3:00 PM EDT COPD with acute exacerbation (HCC) Pharyngitis, unspecified etiology PNIVCOKNENJYF39/15/2025 10:32 AM EDT ZNKEJBMXNWEB25/15/2025 8:14 AM EDT SCAN AND OPGLDVV7808/16/2025 8:14 AM EDT IRON AND TOTAL IRON BINDING ZIHLLHCPOZSZ37/15/2025 8:14 AM EDT COMPREHENSIVE METABOLIC CPOWIEKKD37/15/2025 8:14 AM EDT SCAN AND EEMVBUL0908/09/2025 8:25 AM EDT COMPREHENSIVE METABOLIC ZDDULNpqrerm64/08/2025 8:25 AM EDT ZZMCVGIOZN58/01/2025 10:00 AM EDT IMMUNOGLOBULINS A/E/G/M, QN ([facility])STAT1 10:00 AM EDT EOQKMPSWSECWQCwdqtrl83/01/2025 10:00 AM EDT SCAN AND CBCAtdjmsm29/01/2025 10:00 AM EDT VITAMIN C68Sdmekic09/01/2025 10:00 AM EDT FOLATE, NHAXUJcyijsd98/01/2025 10:00 AM EDT SDROLNQLGbzfdaa69/01/2025 10:00 AM EDT IRON AND TOTAL IRON BINDING BFQDZWNIBstsjgz66/01/2025 10:00 AM EDT COMPREHENSIVE METABOLIC ZXSZGCmpgkqs11/01/2025 10:00 AM EDT SCAN AND XVJEXPY3807/19/2025 9:45 AM EDT COMPREHENSIVE METABOLIC LEVKEJFYA55/17/2025 9:45 AM EDT IMMUNOFIXATION,SERUM ([facility])Bmfneez6507/12/2025 8:06 AM EDT PROTEIN ELECTROPHORESIS, BMBNUCzgpmsi23/10/2025 8:06 AM EDT ALPHA FETOPROTEIN, TUMOR CTARGJBrxdvlx14/10/2025 8:06 AM EDT DIFF AND NEISBCV0907/12/2025 8:06 AM EDT COMPREHENSIVE METABOLIC BOKJBMIBX30/10/2025 8:06 AM EDT SCAN AND YHAMLVM9307/05/2025 10:07 AM EDT COMPREHENSIVE METABOLIC DOABASZUA44/03/2025 10:07 AM EDT DIABETIC RETINOPATHY SCREENING - OU - BOTH IQSSAkhhhbu31/05/2025 10:06 AM EDT HEMOGLOBIN I6ISgldbwd90/21/2025 9:45 AM EDT Type 2 diabetes mellitus without complication, without long-term current use of insulin (HCC) MICROALBUMIN / CREATININE URINE GQXRCIqmcfmc63/25/2024 12:23 PM EDT Essential hypertension Type 2 diabetes mellitus with other specified complication, unspecified whether mcc insulin use (HCC) MM TOMOSYNTHESIS SCREENING BI08/18/2024 3:19 PM EDT BAYZLEXWJIHLciktan44/14/2018 12:00 PM EST from Last 3 Months or Most Recently Relevant to Health Maintenance Results * (ABNORMAL) SCAN AND CBC (09/27/2025 8:09 AM EST) Only the most recent of8 resultswithin the time period is included. ComponentValueRef RangeTest MethodAnalysis TimePerformed AtPathologist Signature WBC1.8(L)3.8 - 11.6 [CFU]/mL09/27/2025 8:23 AM [facility] UNCORRECTED WHITE BLOOD COUNT1.8(L)3.8 - 11.6 10*3/uL09/27/2025 8:23 AM [facility](L)3.60 - 5.00 10*6/uL09/27/2025 8:23 AM [facility] ZbnOUBXDYHWBQ93.5(L)11.8 - 15.4 g/dL09/27/2025 8:23 AM [facility] [facility] PcmLSJDUOKZMN19.9(L)34.0 - 46.4 % 09/27/2025 8:23 AM [facility] ZslBHU95.080 - 100 fL09/27/2025 8:23 AM [facility] GliEDE10.524.7 - 34.3 pg09/27/2025 8:23 AM [facility] OcsSRUS42.232.0 - 35.0 g/dL09/27/2025 8:23 AM [facility] CtrRED CELL DISTRIBUTION WIDTH, RDW18.6(H)11.9 - 15.3 %09/27/2025 8:23 AM [facility] CtrPLATELET COUNT52(L)150 - 450 10*3/uL09/27/2025 8:23 AM [facility] CtrMEAN PLATELET VOLUME, MPV7.96.3 - 10.7 fL09/27/2025 8:23 AM [facility] Ctr NEUTROPHILS, %47.1. %09/27/2025 9:20 AM [facility] Ctr LYMPHOCYTES, %26.4. %09/27/2025 9:20 AM [facility] Ctr MONOCYTE/MACROPHAGE, %20.7. %09/27/2025 9:20 AM [facility] CtrEOSINOPHILS, %4.7. %09/27/2025 9:20 AM [facility] Ctr BASOPHILS, %1.1. %09/27/2025 9:20 AM [facility] CtrNRBC0.00 - 0.5 /100{WBC}09/27/2025 9:20 AM [facility] CtrNEUTROPHILS0.8 (L)1.8 - 7.7 10*3/uL09/27/2025 9:20 AM [facility] Ctr LYMPHOCYTES0.5(L)1.00 - 4.8 10*3/uL09/27/2025 9:20 AM [facility] CtrMONOCYTES0.40.0 - 0.8 10*3/uL09/27/2025 9:20 AM [facility] CtrEOSINOPHILS0.10.0 - 0.45 10*3/uL09/27/2025 9:20 AM [facility] CtrBASOPHILS0.00.0 - 0.2 10*3/uL09/27/2025 9:20 AM [facility] CzfEATTTYEMRKPGQBjfatj48/26/2025 9:20 AM [facility] PxhZBDXEEZNMSNKSQLwdqlm67/26/2025 9:20 AM [facility] SmxNFRLUOAKAFTBUgwyhk90/26/2025 9:20 AM [facility] Ctr TFLKZUUPCLMQOvwduz50/26/2025 9:20 AM [facility] CtrOVALOCYTES Gtcpae6909/27/2025 9:20 AM [facility] CtrPLATELET ESTIMATE TagejxltwAmixoz20/26/2025 9:20 AM [facility] CtrPLATELET NUGYABVOWWXrxfsrIrgpib26/26/2025 9:20 AM [facility] CtrLARGE ZXQMBVRCDEkrlwp37/26/2025 9:20 AM [facility] CtrSpecimen (Source)Anatomical Location / LateralityCollection Method / VolumeCollection TimeReceived TimeBlood (Blood)09/27/2025 8:09 AM EST09/27/2025 8:13 AM EST Narrative Authorizing ProviderResult TypeResult StatusAmy M Yves MDLAB BLOOD ORDERABLES Final ResultPerforming OrganizationAddressCity/State/ZIP CodePhone Number [facility] [address] [place] [address], [facility] [address] [place] [address] * (ABNORMAL) Comprehensive metabolic panel (09/27/2025 8:09 AM EST) Only the most recent of10 resultswithin the time period is included. ComponentValueRef RangeTest MethodAnalysis TimePerformed AtPathologist Signature Eezmutl783(H)70 - 100 mg/dL09/27/2025 8:40 AM [facility] Ctr Comment: Random Glucose Reference Range is dependent on time and content of last meal. Glucose of more than 200 mg/dL in a nonstressed, ambulatory subject supports the diagnosis of Diabetes Mellitus. ADA recommended reference range LWA932 - 25 mg/dL09/27/2025 8:40 AM [facility] CtrCREATININE 0.930.60 - 1.20 mg/dL09/27/2025 8:40 AM [facility] Ctr ESTIMATED GFR>60. 8:40 AM [facility] LemCwgfvl282 136 - 145 mmol/L111/27/2024 8:40 AM [facility] CtrPotassium, Bld4.23.5 - 5.1 mmol/L111/27/2024 8:40 AM [facility] Ctr Slswvopu12306 - 107 mmol/L111/27/2024 8:40 AM [facility] Ctr Carbon Rvhnkdd41.221.0 - 31.0 mmol/L111/27/2024 8:40 AM [facility] CtrAnion Gap11.06.0 - 15. 8:40 AM [facility] CtrCalcium8.88.6 - 10.3 mg/dL09/27/2025 8:40 AM [facility] CtrTOTAL PROTEIN5.5(L)6.4 - 8.9 g/dL09/27/2025 8:40 AM [facility] CtrALBUMIN LEVEL3.3(L)3.5 - 5.7 g/dL09/27/2025 8:40 AM [facility] CtrGLOBULIN2.2g/dL09/27/2025 8:40 AM [facility] CtrALBUMIN/GLOBULIN RATIO1.511 8:40 AM [facility] CtrBILIRUBIN,TOTAL1.1(H)0.3 - 1.0 mg/dL09/27/2025 8:40 AM [facility] CtrASPARTATE AMINO SFPQUGDSSWO5141 - 39 U/L111/27/2024 8:40 AM [facility] CtrALANINE TXIELZEDFJUWBNOB891 - 52 U/L 09/27/2025 8:40 AM [facility] CtrALKALINE GAMREGXKVOE958(H)34 - 104 U/L111/27/2024 8:40 AM [facility] CtrCREATININE CLR CALC RPAMIBOR05.9809/27/2025 8:40 AM [facility] CtrSpecimen (Source)Anatomical Location / LateralityCollection Method / VolumeCollection TimeReceived TimeOtherTopography unknown / Tqxerhp6209/27/2025 8:09 AM EST 09/27/2025 8:13 AM EST Narrative Authorizing ProviderResult TypeResult StatusFabiola Marinelli MDLAB BLOOD ORDERABLES Final ResultPerforming OrganizationAddressCity/State/ZIP CodePhone Number [facility] [address] [place] [address], [facility] [address] [place] [address] * (ABNORMAL) Iron and TIBC (09/19/2025 10:00 AM EST) Only the most recent of3 resultswithin the time period is included. ComponentValueRef RangeTest MethodAnalysis TimePerformed AtPathologist Signature IMQH6469 - 212 ug/dL09/19/2025 11:02 AM [facility] CtrTOTAL IRON BINDING DGOVYFLG254(L)255 - 450 ug/dL09/19/2025 11:02 AM [facility] Ctr% IRON UZXSYCXEBS19.320 - 50 %09/19/2025 11:02 AM [facility] KfrYNHXJVWINUR881(L)203 - 362 mg/dL09/19/2025 11:02 AM [facility] CtrSpecimen (Source)Anatomical Location / LateralityCollection Method / VolumeCollection TimeReceived TimeOtherTopography unknown / Zclaflo5109/19/2025 10:00 AM EST09/19/2025 10:19 AM EST Narrative Authorizing ProviderResult TypeResult StatusFabiola Marinelli MDLAB BLOOD ORDERABLES Final ResultPerforming OrganizationAddressty/State/ZIP CodePhone Number [facility] [address] [place] [address], [facility] [address] [place] [address] * Ferritin (09/19/2025 10:00 AM EST) Only the most recent of3 resultswithin the time period is included. ComponentValueRef RangeTest MethodAnalysis TimePerformed AtPathologist Signature TLUMGWWU861.411.0 - 306.8 ng/mL09/19/2025 11:21 AM [facility] CtrSpecimen (Source)Anatomical Location / LateralityCollection Method / Volume Collection TimeReceived TimeOtherTopography unknown / Rvirhtl7809/19/2025 10:00 AM EST09/19/2025 10:19 AM EST Narrative Authorizing ProviderResult TypeResult StatusFabiola Ching Yves [facility] BLOOD ORDERABLES Final ResultPerforming OrganizationAddressCity/State/ZIP CodePhone Number [facility] [address] [facility] [place] [address], [facility] [address] [place] [address] * MR abdomen w and wo contrast [...] ? TRACE ASCITES. ? Impression dictated by: Neri Pickard Jr.O. ??09/18/2025 10:08 AM ? Dictation Location: [facility] ? Transcribed By: ? PWS ?09/18/25 1008 ? Dictated By: ?Carroll Jr Kyara, DO ?09/18/25 1003 ? Signed By: <Electronically signed by Carroll Sparrow Jr, DO in OV> ?09/18/25 1008 Narrative 09/18/2025 10:10 AM [facility] ?[facility] [place] ?[address] ? [place] [address] ? MRI Report ? Signed ? Patient: Mojgan Snider ?MR#: [id number] ?? [id number] ? : 1955 ?Acct:[id number] ? Age/Sex: 70 / F ?ADM Date: [...] Note Carroll Sparrow Jr., DO - 09/18/2025 [facility] [place] [address] [place] [address] MRI Report Signed Patient: Mojgan Snider SMR#: [id number] : 7Acct:[id number] Age/Sex: 70 / FADM Date: 09/18/25 Loc: XT Room:Type: [facility] Attending Dr: Fabiola Marinelli MD [...] has been removed. No CBD dilatation. Splenomegaly ppqsxuavg42 cm. Pancreas appears unremarkable. Adrenal glands appear [...] Jr., D.O. 09/18/2025 10:08 AM Dictation Location: [facility]-PC-22 Transcribed By: PWS 09/18/25 1008 Dictated By: Carroll Sparrow Jr, DO 09/18/25 1003 Signed By: <Electronically signed by Carroll Sparrow Jr, DO inOV> 09/18/25 1008 Authorizing ProviderResult TypeResult StatusFabiola Marinelli MDIMG MRI PROCEDURES Final Result * FREE K+L LT CHAINS, QN, S (09/06/2025 8:57 AM EST)ComponentValueRef RangeTest MethodAnalysis TimePerformed AtPathologist SignatureFREE KAPPA LIGHT CHAINS, S 0.73.3 - 19.4 mg/L111/07/2024 4:09 PM ESTFIRELANDSFREE LAMBDA LIGHT CHAINS, S 35.05.7 - 26.3 mg/L111/07/2024 4:09 PM ESTFIRELANDSKAPPA/LAMBDA RATIO, S0.02 0.26 - 1.6509/07/2025 4:09 PM ESTFIRELANDSComment: Performed at: ?? - [facility] [address] ??[id number] [employer] Attendant: Lang Knight PhD, Phone: ??[phone] Specimen (Source)Anatomical Location / LateralityCollection Method / Volume Collection TimeReceived TimeOtherTopography unknown / Hudoqln3509/06/2025 8:57 AM EST09/06/2025 9:06 AM EST Narrative Authorizing ProviderResult TypeResult StatusFabiola KIRKPATRICK BLOOD ORDERABLES Final ResultPerforming OrganizationAddressCity/State/ZIP CodePhone Number [facility] [address] [place] [address], * IMMUNOGLOBULINS A/G/M, QN, SER (09/06/2025 8:57 AM EST)ComponentValueRef Range Test MethodAnalysis TimePerformed AtPathologist SignatureIMMUNOGLOBULIN G550 586 - 1,602 mg/dL09/07/2025 8:36 AM ESTFIRELANDSIMMUNOGLOBULIN A, SERUM<587 - 352 mg/dL09/07/2025 8:36 AM ESTFIRELANDSComment:Result confirmed on concentration.IMMUNOGLOBULIN M, SERUM<526 - 217 mg/dL09/07/2025 8:36 AM EST [facility] PROVIDENCELANDSComment: Result confirmed on concentration. Performed at: ??CB - [facility] [address] ??[id number] [employer] Attendant: Lang Knight PhD, Phone: ??[phone] Specimen (Source)Anatomical Location / LateralityCollection Method / Volume Collection TimeReceived TimeOtherTopography unknown / Focndlv6709/06/2025 8:57 AM EST09/06/2025 9:06 AM EST Narrative Authorizing ProviderResult TypeResult StatusFabiola KIRKPATRICK BLOOD ORDERABLES Final ResultPerforming OrganizationAddressCity/State/ZIP CodePhone Number [facility] [address] [id number], * (ABNORMAL) DIFF AND CBC (09/06/2025 8:57 AM EST) Only the most recent of2 resultswithin the time period is included. ComponentValueRef RangeTest MethodAnalysis TimePerformed AtPathologist Signature WBC2.2(L)3.8 - 11.6 [CFU]/mL09/06/2025 9:59 AM [facility]tr UNCORRECTED WHITE BLOOD COUNT2.2(L)3.8 - 11.6 10*3/uL09/06/2025 9:59 AM [facility] CtrRBC3.16(L)3.60 - 5.00 10*6/uL09/06/2025 9:59 AM [facility] IwrCOHCHJTEQJ65.4(L)11.8 - 15.4 g/dL09/06/2025 9:59 AM [facility] UmoYNSVOYETVW81.5(L)34.0 - 46.4 % 09/06/2025 9:59 AM [facility] QbgWAP58.580 - 100 fL09/06/2025 9:59 AM [facility] OwnWBR59.924.7 - 34.3 pg09/06/2025 9:59 AM [facility] KkcZDYV77.132.0 - 35.0 g/dL09/06/2025 9:59 AM [facility] CtrRED CELL DISTRIBUTION WIDTH, RDW18.3(H)11.9 - 15.3 %09/06/2025 9:59 AM [facility] CtrPLATELET COUNT38(LL) 150 - 450 10*3/uL09/06/2025 10:01 AM [facility] CtrComment: Critical value result called at 1000 on 09/06/25 MEAN PLATELET VOLUME, MPV8.96.3 - 10.7 fL09/06/2025 9:59 AM [facility] CtrSEGMENTED EMHNKFXBNYB74(H)50 - 70 %09/06/2025 9:59 AM [facility] CtrBAND NEUTROPHILS7(H)0 - 5 %09/06/2025 9:59 AM [facility] VwcZUYGDXQQBZM98(L)18 - 42 %09/06/2025 9:59 AM [facility] VytRFBRXYZXM00 - 11 %09/06/2025 9:59 AM [facility] SogOWGIEEDPZWNZVHmizkx07/05/2025 9:59 AM [facility] KvqRMATJACNRKINSBIxsxyi81/05/2025 9:59 AM [facility] FzlYNINWGCYVPAROesmqf46/05/2025 9:59 AM [facility] Ctr BGIFLUCGNHNMZnunrc35/05/2025 9:59 AM [facility] CtrTEAR DROP TKGRGMljdmz04/05/2025 9:59 AM [facility] CtrOVALOCYTESSlight 09/06/2025 9:59 AM [facility] CtrPLATELET ESTIMATEDecreased Aqjjzu2209/06/2025 9:59 AM [facility] CtrGIANT PLATELET TALLY4 /100{WBC}09/06/2025 9:59 AM [facility] CtrPLATELET MORPHOLOGY EnicnnVjwwip12/05/2025 9:59 AM [facility] CtrSpecimen (Source)Anatomical Location / LateralityCollection Method / VolumeCollection TimeReceived TimeBlood (Blood)09/06/2025 8:57 AM EST09/06/2025 9:06 AM EST Narrative Authorizing ProviderResult TypeResult StatusFabiola KIRKPATRICK BLOOD ORDERABLES Final ResultPerforming OrganizationAddressCity/State/ZIP CodePhone Number [facility] [address] [place] [address], [facility] [address] [place] [address] * IMMUNOFIXATION,SERUM ([facility]) (09/06/2025 8:57 AM EST) Only the most recent of2 resultswithin the time period is included. ComponentValueRef RangeTest MethodAnalysis TimePerformed AtPathologist Signature IMMUNOFIXATION, SERUMComment.09/08/2025 12:36 PM ESTFIRELANDSComment:No monoclonality detected.IMMUNOGLOBULIN C852689 - 1,602 mg/dL09/08/2025 12:36 PM ESTFIRELANDSIMMUNOGLOBULIN A, SERUM<587 - 352 mg/dL09/08/2025 12:36 PM EST FIRELANDSComment:Result confirmed on concentration.IMMUNOGLOBULIN M, SERUM<526 - 217 mg/dL09/08/2025 12:36 PM ESTFIRELANDSComment: Result confirmed on concentration. Performed at: ?? - [facility] [address] ??[id number] [employer] Attendant: Lang Knight PhD, Phone: ??[phone] Specimen (Source)Anatomical Location / LateralityCollection Method / Volume Collection TimeReceived TimeOtherTopography unknown / Jfdstck8609/06/2025 8:57 AM EST09/06/2025 9:06 AM EST Narrative Authorizing ProviderResult TypeResult StatusFabiola KIRKPATRICK BLOOD ORDERABLES Final ResultPerforming OrganizationAddressCity/State/ZIP CodePhone Number [address] [place] [address], * AFP tumor marker (09/06/2025 8:57 AM [...] interpretable in females. Performed at: ?? - [facility] ??[id number] [employer] Attendant: Lang Knight PhD, Phone: ??[phone] Specimen (Source)Anatomical Location / LateralityCollection Method / Volume Collection TimeReceived TimeOtherTopography unknown / Glgeqyg7409/06/2025 8:57 AM EST09/06/2025 9:06 AM EST Narrative Authorizing ProviderResult TypeResult StatusFabiola Marinelli MDLAB BLOOD ORDERABLES Final ResultPerforming OrganizationAddressCity/State/ZIP CodePhone Number [address] [phone] * Protein electrophoresis, serum (09/06/2025 8:57 AM EST) Only the most recent of2 resultswithin the time period is included. ComponentValueRef RangeTest MethodAnalysis TimePerformed AtPathologist Signature TOTAL PROTEIN, SERUM5.16.0 - 8.5 g/dL09/07/2025 3:08 PM ESTFIRELANDSALBUMIN, SERUM3.12.9 - 4.4 g/dL09/07/2025 3:08 PM HUBUMTGXZFUCCZLPI-0-KEJPHQER6.30.0 - 0.4 g/dL09/07/2025 3:08 PM FDJIXPNISMGPALANX-4-MNMHLWLD8.50.4 - 1.0 g/dL 09/07/2025 3:08 PM ESTFIRELANDSBETA GLOBULIN0.80.7 - 1.3 g/dL09/07/2025 3:08 PM ESTFIRELANDSGAMMA GLOBULIN0.40.4 - 1.8 g/dL09/07/2025 3:08 PM ESTFIRELANDS M-SPIKENot ObservedNot Observed g/dL09/07/2025 3:08 PM ESTFIRELANDSGLOBULIN, TOTAL2.02.2 - 3.9 g/dL09/07/2025 3:08 PM ESTFIRELANDSA/G RATIO1.60.7 - 1.7 09/07/2025 3:08 PM ESTFIRELANDSSPE-NOTEComment.09/07/2025 3:08 PM ESTFIRELANDS Comment: Protein electrophoresis scan will follow via computer, mail, or film technician delivery. Performed at: ??CB - [facility] [address] ??[id number] [employer] Attendant: Lang Knight PhD, Phone: ??[phone] Specimen (Source)Anatomical Location / LateralityCollection Method / Volume Collection TimeReceived TimeOtherTopography unknown / Tsjynsy8809/06/2025 8:57 AM EST09/06/2025 9:06 AM EST Narrative Authorizing ProviderResult TypeResult StatusFabiola Marinelli MDLAB BLOOD ORDERABLES Final ResultPerforming OrganizationAddressCity/State/[facility] CodePhone Number [address] * POCT rapid strep A manually resulted (08/22/2025 3:10 PM EDT)ComponentValueRef RangeTest MethodAnalysis TimePerformed AtPathologist SignatureRapid Strep A ScreenNegativeNegative, None DetectedSpecimen (Source)Anatomical Location / LateralityCollection Method / VolumeCollection TimeReceived XdlvEybm50/21/2025 3:10 PM EDT Narrative Authorizing ProviderResult TypeResult StatusDaniel Brynn DOPOINT OF CARE TEST ENTER/EDIT ORDERABLESFinal Result * (ABNORMAL) PNEUMONIA (HTRX) (08/22/2025 3:00 PM EDT)ComponentValueRef Range Test MethodAnalysis TimePerformed AtPathologist SignatureSTREPTOCOCCUS PYOGENES (GROUP A STREP) (RESPIRATORY)019.961 - 24.689 ppm08/23/2025 6:49 AM EDTHealthTrackRx at LabPortSTREPTOCOCCUS PYOGENES (GROUP A STREP) (RESPIRATORY)Not Uimqxokr32.961 - 24.689 ppm08/23/2025 6:49 AM EDT [facility] at LabPortSTREPTOCOCCUS PNEUMONIAE (RESPIRATORY)019.961 - 24.689 ppm10/ 6:49 AM EDTHealthTrackRx at LabPortSTREPTOCOCCUS PNEUMONIAE (RESPIRATORY)Not Onjkvrvd63.961 - 24.689 ppm08/23/2025 6:49 AM EDT [facility] at LabPortSTREPTOCOCCUS AGALACTIAE (GROUP B STREP) (RESPIRATORY) 019.961 - 24.689 ppm08/23/2025 6:49 AM EDTHealthTrackRx at [facility] STREPTOCOCCUS AGALACTIAE (GROUP B STREP) (RESPIRATORY)Not Wegixpqj05.961 - 24.689 ppm08/23/2025 6:49 AM EDTHealthTrackRx at LabPortSTAPHYLOCOCCUS AUREUS (RESPIRATORY)019.961 - 24.689 ppm08/23/2025 6:49 AM EDTHealthTrackRx at LabPortSTAPHYLOCOCCUS AUREUS (RESPIRATORY)Not Nfgjtrlk41.961 - 24.689 ppm 08/23/2025 6:49 AM EDTHealthTrackRx at LabPortSERRATIA MARCESCENS (RESPIRATORY)019.961 - 24.689 ppm08/23/2025 6:49 AM EDTHealthTrackRx at LabPortSERRATIA MARCESCENS (RESPIRATORY)Not Nyrsygng79.961 - 24.689 ppm 08/23/2025 6:49 AM EDTHealthTrackRx at LabPortRESPIRATORY SYNCYTIAL VIRUS (RESPIRATORY)023.000 - 31.953 ppm08/23/2025 6:49 AM EDTHealthTrackRx at LabPortRESPIRATORY SYNCYTIAL VIRUS (RESPIRATORY)Not Iwlksfze62.000 - 31.953 ppm08/23/2025 6:49 AM EDTHealthTrackRx at LabPortPSEUDOMONAS AERUGINOSA (RESPIRATORY)31.113(A)19.961 - 24.689 ppm08/23/2025 6:49 AM EDTHealthTrackRx at LabPortPSEUDOMONAS AERUGINOSA (RESPIRATORY)Detected(A)19.961 - 24.689 ppm 08/23/2025 6:49 AM EDTHealthTrackRx at LabPortPROTEUS MIRABILIS, VULGARIS (RESPIRATORY)019.961 - 24.689 ppm08/23/2025 6:49 AM EDTHealthTrackRx at LabPortPROTEUS MIRABILIS, VULGARIS (RESPIRATORY)Not Mfkkdzuq97.961 - 24.689 ppm08/23/2025 6:49 AM EDTHealthTrackRx at LabPortPARAINFLUENZA VIRUS (TYPES 1, 2, 3 ,4) (RESPIRATORY)023.000 - 31.487 ppm10 6:49 AM EDTHealthTrackRx at LabPortPARAINFLUENZA VIRUS (TYPES 1, 2, 3 ,4) (RESPIRATORY)Not Detected 23.000 - 31.487 ppm10 6:49 AM EDTHealthTrackRx at LabPortMYCOPLASMA PNEUMONIAE (RESPIRATORY)019.961 - 24.689 ppm08/23/2025 6:49 AM EDT [facility] at LabPortMYCOPLASMA PNEUMONIAE (RESPIRATORY)Not Innsdijx62.961 - 24.689 ppm08/23/2025 6:49 AM EDTHealthTrackRx at LabPortMORAXELLA CATARRHALIS (RESPIRATORY)019.961 - 24.689 ppm08/23/2025 6:49 AM EDT [facility] at LabPortMORAXELLA CATARRHALIS (RESPIRATORY)Not Kmixwwgb78.961 - 24.689 ppm08/23/2025 6:49 AM EDTHealthTrackRx at LabPortLEGIONELLA PNEUMOPHILA (RESPIRATORY)019.961 - 24.689 ppm08/23/2025 6:49 AM EDT [facility] at LabPortLEGIONELLA PNEUMOPHILA (RESPIRATORY)Not Ukimymdr27.961 - 24.689 ppm08/23/2025 6:49 AM EDTHealthTrackRx at LabPortKLEBSIELLA PNEUMONIAE, OXYTOCA (RESPIRATORY)019.961 - 24.689 ppm08/23/2025 6:49 AM EDT [facility] at LabPortKLEBSIELLA PNEUMONIAE, OXYTOCA (RESPIRATORY)Not Lyzgjebp09.961 - 24.689 ppm08/23/2025 6:49 AM EDTHealthTrackRx at [facility] INFLUENZA VIRUS, A, B (RESPIRATORY)023.000 - 29.803 ppm08/23/2025 6:49 AM EDT [facility] at LabPortINFLUENZA VIRUS, A, B (RESPIRATORY)Not Mezrwgli22.000 - 29.803 ppm08/23/2025 6:49 AM EDTHealthTrackRx at LabKind[facility] HospitalMAN METAPNEUMOVIRUS (RESPIRATORY)023.000 - 33.630 ppm08/23/2025 6:49 AM EDT [facility] at [facility] METAPNEUMOVIRUS (RESPIRATORY)Not Itybulza92.000 - 33.630 ppm08/23/2025 6:49 AM EDTHealthTrackRx at LabPortHAEMOPHILUS INFLUENZAE (RESPIRATORY)019.961 - 24.689 ppm08/23/2025 6:49 AM EDT [facility] at LabPortHAEMOPHILUS INFLUENZAE (RESPIRATORY)Not Cnkqkpqj20.961 - 24.689 ppm08/23/2025 6:49 AM EDTHealthTrackRx at LabPortESCHERICHIA COLI (RESPIRATORY)019.961 - 24.689 ppm08/23/2025 6:49 AM EDTHealthTrackRx at LabPortESCHERICHIA COLI (RESPIRATORY)Not Yctpsjfn97.961 - 24.689 ppm08/23/2025 6:49 AM EDTHealthTrackRx at LabPortENTEROVIRUS D68 (RESPIRATORY)023.000 - 32.268 ppm08/23/2025 6:49 AM EDTHealthTrackRx at LabPortENTEROVIRUS D68 (RESPIRATORY)Not Usmttpkh13.000 - 32.268 ppm08/23/2025 6:49 AM EDT [facility] at LabPortOTHER CORONAVIRUSES (229E, NL63, HKU1, OC43) (RESPIRATORY)023.000 - 30.477 ppm08/23/2025 6:49 AM EDTHealthTrackRx at LabPortOTHER CORONAVIRUSES (229E, NL63, HKU1, OC43) (RESPIRATORY)Not Detected 23.000 - 30.477 ppm08/23/2025 6:49 AM EDTHealthTrackRx at LabPortCHLAMYDIA PNEUMONIAE (RESPIRATORY)019.961 - 24.689 ppm08/23/2025 6:49 AM EDT [facility] at LabPortCHLAMYDIA PNEUMONIAE (RESPIRATORY)Not Rrtfjwkg03.961 - 24.689 ppm10/ 6:49 AM EDTHealthTrackRx at LabPortBORDETELLA PERTUSSIS, PARAPERTUSSIS, BRONCHISEPTICA (RESPIRATORY)019.961 - 24.689 ppm08/23/2025 6:49 AM EDTHealthTrackRx at LabPortBORDETELLA PERTUSSIS, PARAPERTUSSIS, BRONCHISEPTICA (RESPIRATORY)Not Dwehhnll53.961 - 24.689 ppm08/23/2025 6:49 AM EDTHealthTrackRx at LabPortACINETOBACTER BAUMANNII (RESPIRATORY)019.961 - 24.689 ppm08/23/2025 6:49 AM EDTHealthTrackRx at LabPortACINETOBACTER BAUMANNII (RESPIRATORY)Not Ipnyjrdv97.961 - 24.689 ppm08/23/2025 6:49 AM EDT [facility] JQKNAXDLMSQ377.000 - 31.947 ppm 08/23/2025 6:49 AM EDTHealth[facility]Rx at [facility] CORONAVIRUSNot Dfwdvurc31.000 - 31.947 ppm08/23/2025 6:49 AM EDT[facility] at [facility] RHINOVIRUS/ENTEROVIRUS (RESPIRATORY)29.8(A)23.000 - 30.000 ppm08/23/2025 6:49 AM EDTHealth[facility]Rx at LabPortRHINOVIRUS/ENTEROVIRUS (RESPIRATORY)Detected(A) 23.000 - 30.000 ppm08/23/2025 6:49 AM EDT[facility]Rx at LabPortADENOVIRUS HADV-B (RESPIRATORY)023.000 - 31.833 ppm08/23/2025 6:49 AM EDTHealthTrackRx at LabPortADENOVIRUS HADV-B (RESPIRATORY)Not Wrlbwfyl44.000 - 31.833 ppm 08/23/2025 6:49 AM EDTHealthTrackRx at LabPortENTEROBACTER CLOACAE COMPLEX, KLEBSIELLA (ENTEROBACTER) AEROGENES (ZDDQSKWP364.961 - 24.689 ppm08/23/2025 6:49 AM EDTHealthTrackRx at LabPortENTEROBACTER CLOACAE COMPLEX, KLEBSIELLA (ENTEROBACTER) AEROGENES (RESPIRATNot Wrjtuxaj97.961 - 24.689 ppm08/23/2025 6:49 AM EDTHealthTrackRx at LabPortSpecimen (Source)Anatomical Location / LateralityCollection Method / VolumeCollection TimeReceived TimePulmonary 08/22/2025 3:00 PM EDT1 10:26 PM EDT Narrative Authorizing ProviderResult TypeResult StatusDahoward Swain [facility] BLOOD ORDERABLES Edited Result - FinalPerforming OrganizationAddressCity/State/ZIP CodePhone Number [facility] [address] [address] * (ABNORMAL) Magnesium (08/16/2025 10:32 AM EDT)ComponentValueRef RangeTest MethodAnalysis TimePerformed AtPathologist SignatureMAGNESIUM1.7(L)1.9 - 2.7 mg/dL08/16/2025 11:04 AM EDMer[facility] CtrSpecimen (Source) Anatomical Location / LateralityCollection Method / VolumeCollection Time Received TimeOtherTopography unknown / Bgeoewt2108/16/2025 10:32 AM EDT 08/16/2025 10:32 AM EDT Narrative Authorizing ProviderResult TypeResult StatusFabiola Marinelli [facility] BLOOD ORDERABLES Final ResultPerforming OrganizationAddressCity/State/ZIP CodePhone Number [facility] [address] [place] [address], [facility] [address] [place] [address] * IMMUNOGLOBULINS A/E/G/M, QN ([facility]) (08/02/2025 10:00 AM EDT)ComponentValueRef RangeTest MethodAnalysis TimePerformed AtPathologist SignatureIMMUNOGLOBULIN G 126641 - 1,602 mg/dL08/07/2025 6:36 AM EDTFIRELANDSIMMUNOGLOBULIN A, SERUM<587 - 352 mg/dL08/07/2025 6:36 AM EDTFIRELANDSComment:Result confirmed on concentration.IMMUNOGLOBULIN M, SERUM<526 - 217 mg/dL08/07/2025 6:36 AM EDT [facility]Comment:Result confirmed on concentration.IMMUNOGLOBULIN E<26 - 495 08/07/2025 6:36 AM EDTFIRELANDSComment: Performed at: ??[address] ??[id number] Locker Plant Attendant: Lang Knight PhD, Phone: ??[phone] Performed at: ??[address] ??[id number] Locker Plant Attendant: Maxine Briones MD, Phone: ??[phone] Specimen (Source)Anatomical Location / LateralityCollection Method / Volume Collection TimeReceived TimeOtherTopography unknown / Ykaytew3308/02/2025 10:00 AM EDT1 10:04 AM EDT Narrative Authorizing ProviderResult TypeResult StatusFabiola KIRKPATRICK BLOOD ORDERABLES Final ResultPerforming OrganizationAddEncompass Health Rehabilitation Hospital of Sewickleyty/[facility]iePhone [facility] [address] [place] [address], [place] * Copper, serum (08/02/2025 10:00 AM EDT)ComponentValueRef RangeTest Method Analysis TimePerformed AtPathologist BaboflatkBGGUBP16568 - 158 ug/dL 08/08/2025 10:06 PM EDTFIRELANDSComment: This test was developed and its performance characteristics determined by [facility]. It has not been cleared or approved by the Food and Drug Administration. ?Detection Limit = 5 Performed at: ??[address] ??[id number] Locker Plant Attendant: Maxine Briones MD, Phone: ??[phone] Specimen (Source)Anatomical Location / LateralityCollection Method / Volume Collection TimeReceived TimeOtherTopography unknown / Pupgcuy1308/02/2025 10:00 AM EDT1 10:04 AM EDT Narrative Authorizing ProviderResult TypeResult StatusFabiola KIRKPATRICK BLOOD ORDERABLES Final ResultPerforming OrganizationAddressGenesis [facility] McDuffiePhone Number [facility] [address] [place] [address], [place] * Ceruloplasmin (08/02/2025 10:00 AM EDT)ComponentValueRef RangeTest Method Analysis TimePerformed AtPathologist AwlcrnacjIKXDAEWXQAVTP98.419.0 - 39.0 mg/dL08/03/2025 3:36 AM EDCOLUMBIA MEMORIAL HOSPITALComment: Performed at: ?? - [facility] [address] ??[id number] Locker Plant Attendant: Lang Knight PhD, Phone: ??[phone] Specimen (Source)Anatomical Location / LateralityCollection Method / Volume Collection TimeReceived TimeOtherTopography unknown / Wamepua4508/02/2025 10:00 AM EDT1 10:04 AM EDT Narrative Authorizing ProviderResult TypeResult StatusFabiola KIRKPATRICK BLOOD ORDERABLES Final ResultPerforming OrganizationAddressCity/State/ZIP CodePhone Number [address] [address], * Folate (08/02/2025 10:00 AM EDT)ComponentValueRef RangeTest MethodAnalysis TimePerformed AtPathologist SignatureFOLATE9.9>5.9 ng/mL08/02/2025 11:02 AM [facility] CtrComment: Folate reference range: >5.9 ng/ml The WHO technical consultation on folate and vitamin b12 deficiencies has determined that folate concentrations less than 4 ng/ml are considered deficient. Specimen (Source)Anatomical Location / LateralityCollection Method / Volume Collection TimeReceived TimeOtherTopography unknown / Xtznlwu0308/02/2025 10:00 AM EDT1 10:04 AM EDT Narrative Authorizing ProviderResult TypeResult StatusFabiola KIRKPATRICK BLOOD ORDERABLES Final ResultPerforming OrganizationAddEncompass Health Rehabilitation Hospital of Sewickleyty/State/ZIP CodePhone Number [facility] [address] [place] [address], [facility] [address] [place] [address] * (ABNORMAL) Vitamin B12 (08/02/2025 10:00 AM EDT)ComponentValueRef RangeTest MethodAnalysis TimePerformed AtPathologist SignatureVITAMIN B121,113(H)180 - 914 pg/mL08/02/2025 11:03 AM [facility] CtrSpecimen (Source)Anatomical Location / LateralityCollection Method / VolumeCollection TimeReceived TimeOtherTopography unknown / Zrvyanm7708/02/2025 10:00 AM EDT 08/02/2025 10:04 AM EDT Narrative Authorizing ProviderResult TypeResult StatusFabiola Marinelli MDLAB BLOOD ORDERABLES Final ResultPerforming OrganizationAddressCity/State/ZIP CodePhone Number [facility] [address] [facility] [place] [address], [facility] [address] [place] [address] * Diabetic Retinopathy Screening - OU - [...] MICROALBUMIN, URINE< 0.70.0 - 1.810 1:19 PM [facility] CtrCREATININE, URINE (RANDOM)11.00mg/dL08/26/2024 1:17 PM [facility] CtrComment:No reference range established MICROALBUMIN/CREATININE RATIOTest not performed0.0 - 30.010 1:19 PM [facility] CtrSpecimen (Source)Anatomical Location / LateralityCollection Method / VolumeCollection TimeReceived TimeOtherUrine specimen obtained by clean catch procedure / Ubamhxu1508/26/2024 12:23 PM EDT 08/26/2024 12:23 PM EDT Narrative Authorizing ProviderResult TypeResult StatusFabiola Palumbo NPLAB URINE ORDERABLES Final ResultPerforming OrganizationAddressCity/State/ZIP CodePhone Number [facility] [address] [place] [address], [facility] [address] [place] [address] * MM TOMOSYNTHESIS SCREENING BI (08/18/2024 3:19 PM EDT)Anatomical Region LateralityModalityOtherSpecimen (Source)Anatomical Location / Laterality Collection Method / VolumeCollection TimeReceived Time08/18/2024 3:19 PM EDT Narrative 08/18/2024 3:20 PM EDT [facility] ?[address] ? [place] [address] ? Mammography Report ? Signed ? Patient: SNIDER,MOJGAN S ?MR#: [id number] ?? : 1955 ?Acct:[id number] ?? Age/Sex: 68 / F ?ADM Date: 08/18/24 ?? Loc: MAMMO ? Attending Dr: YINKA THOMSON ? Ordering Physician: YINKA THOMSON ? Results: ? Date of Service: 08/18/24 ?Follow Up: ? Procedure(s): MM tomosynthesis screening BI ?? Accession Number(s): [id number] ? cc: YINKA THOMSON ? Patient Name: ? MOJGAN SNIDER ? MR#: [id number] ? : 1955 ? Exam Date: 08/18/2024 [...] at age 66. ? LOCATION: ? [facility] ? BREAST COMPOSITION: ? There are [...] 1520 ? DD/ 1519 ? TD/TT: ? Awake Overnight Monitor: Procedure Note Radiology, Radiologist, MD - 08/18/2024 [place] [address] Mammography Report Signed Patient: MOJGAN SNIDER [facility]#: [id number] : 7Acct:[id number] Age/Sex: 68 / FADM Date: 08/18/24 Loc: MAMMO Attending Dr: IYNKA THOMSON Ordering Physician: German THOMSONults: Date of Service: 08/18/24Follow Up: Procedure(s): MM tomosynthesis screening BI Accession Number(s): [id number] cc: YINKA THOMSON Patient Name: MOJGAN SNIDER MR#: [id number] : 1955 Exam Date: 08/18/2024 Ordering Doctor: [...] lung cancer at age 66. LOCATION: [facility] BREAST COMPOSITION: There are scattered areas [...] M.D. Signed By:08/18/24 1520 DD/ 1519 TD/TT: Awake Overnight Monitor: Authorizing ProviderResult TypeResult StatusYinka Thomson [facility] Final Result * Colonoscopy (09/15/2018 12:00 PM EST)Anatomical RegionLateralityModality EndoscopySpecimen (Source)Anatomical Location / LateralityCollection Method / VolumeCollection TimeReceived Time09/15/2018 12:00 PM EST Narrative 09/15/2018 12:00 PM EST PERFORMED AT [facility] LOCATION:[id number] Abnormal Procedure Note CONVERSION, GENERIC - 03/18/2023 PERFORMED AT [facility] LOCATION:[id number] Abnormal Authorizing ProviderResult TypeResult StatusYinka Thomson MDENDOSCOPY PROCEDURE ORDERABLESFinal Result from Last 3 Months or Most Recently Relevant to Health Maintenance [place] [address] Advance Directives * Full Code (Latest Code Status on File) Date ActivatedDate InactivatedComments03/01/2025 2:43 PM Care Teams Team MemberRelationshipSpecialtyStart DateEnd Date Yinka Thomson MD [address] [place] [address] PCP - [facility]03/26/23 Power Swain DO [address] [place] [address] PCP - GeneralFamily Medicine04/25/25 Sima Paul, LES [address] [place] [address] Registered NurseFamily Qtdubdgj98/23/23
--- OUTSIDE RECORDS SUMMARY | 2025-10-03 10:37 | XMS_ITS | Clinical Summary ---
Author Organization [facility] Address [address] [place] [address] Care Team Providers Care Drosophere Operator Name Role Phone Vitaliy Thomson MD Primary Care Provider [phone] Daniella Lima GUNSTOCK REPAIRER Unavailable [phone] Allergies Active AllergyReactionsCriticalityNoted DateCommentsAdhesiveOther: See Comments 05/15/20169661ZzuowllttsyPjtnjyre44/16/0795TzzgkgoysaeOooiasp72/22/2014Erythromycin Hives10/31/2013LatexOther: See Odnormiv14/12/2150JwgtxdckkxpcTzrad78/24/2019 PlateletsOther: See Uefzbyqp51/20/2019 Throat Swelling; likely angioedema TetracyclineOther: See Bqeoedqj11/12/2019Doxycycline FazqmmuXamrfago58/16/2006 Diclofenac HhehziLeaye69/24/2019 Medications MedicationSigDispense QuantityRefillsLast FilledStart DateEnd DateStatus ADVAIR [...] 2 UNITS FOR GLUCOSE LEVELS GREATER THAN 0447101/24/2022ctive semaglutide (OZEMPIC) 0.25 mg or 0.5 mg(2 [...] 2, controlled, without complications 04/19/2019Thoracic ascending aortic /18/2019COPD (chronic obstructive pulmonary disease)04/19/2019GERD (gastroesophageal reflux disease)04/19/2019 Smoldering taqhwji8804/19/20196897Zfndlemxihytoljn09/30/2014Generalized osteoarthrosis, unspecified site04/15/2006Unspecified vitamin D deficiency 04/15/2006Sleep apnea04/15/2006Monoclonal ockonffnnzdjifh66/25/2006Myalgia and myositis, ttshyuqgbus64/25/2006 Encounters DateTypeDepartmentCare JwwjCagdxypwqlj37/16/2025 4:20 PM EDTOffice Visit Cardiology [address] [facility] [place] [address] Juan J Mendez MD Aneurysm of ascending aorta without rupture (Primary Dx); Essential hypertension; Hyperlipidemia, unspecified hyperlipidemia type; Obesity, Class III, BMI >= 40; 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) (HCC); Smoldering combqcx5508/17/2025Travelfrom Last 3 Months Family History Medical HistoryRelationCommentsEmphysemaFatherHeartFatherCancerMothercolon at age 79Coronary Artery DiseaseMotherRelationStatusCommentsFatherMother Social History Tobacco UseTypesPacks/DayYears UsedDateSmoking Tobacco: BwmabrRjraopdkwc441 07/25/1986 - 07/25/2009Smokeless Tobacco: NeverAlcohol UseStandard Drinks/Week CommentsNo0 (1 standard drink = 0.6 oz pure alcohol)PHQ-2AnswerDate RecordedPHQ2 Dmpqg993Area Deprivation IndexAnswerDate RecordedNational Score (1-100), lower number is lower rrum987504/13/2023State Score (1-10), lower number is lower bvsm3173Data from: https://www.neighborhoodatlas.medicine.[facility].edu/. Last address used for [address] 3CommentsNoSex and Gender InformationValueDate RecordedSex Assigned at BirthNot on fileLegal Sex Zioult2110/03/2012 8:01 AM ESTGender IdentityNot on fileSexual OrientationNot on file Last Filed Vital Signs Vital SignReadingTime TakenCommentsBlood Trblqtwy642/7608/17/2025 4:10 PM EDT Xwrkh674208/17/2025 4:10 PM NBNXzzpclfrsem40.6 ??C (97.8 ??F)07/11/2019 8:08 AM EDTRespiratory Mfvw748111/29/2019 10:44 AM ESTOxygen Daxnkydnhx87%07/11/2019 8:08 AM EDTInhaled Oxygen Concentration--Kpgcfv69.8 kg (186 lb 15.2 oz)08/17/2025 4:10 PM EOHXnddsa078.5 cm (5' 2 )08/17/2025 4:10 PM EDTBody Mass Index34.19 08/17/2025 4:10 PM EDT Plan of Treatment DateTypeDepartmentCare Team (Latest Contact Info)Sgjktoecbda02/22/2026 2:00 PM EDTOffice Visit Cardiology [address] [place] [address] [place] [address] [place], [place] [address] Return in about 8 months (around 04/17/2026).Health MaintenanceDue DateLast Done CommentsDiabetic Foot Exam1967Dilated Retinal Exam1967Annual PCP Team Chronic Disease Visit1975Anxiety Itjtlayll09/10/1975Depression Lxegzuccn97/10/1975DTaP,Tdap,Td Vaccine (1 - Tdap)1976Hepatitis A Vaccine (1 of 2 - Risk 2-dose series)1976CT Zxvxjkmrhsac02/10/2002Cologuard (FIT-DNA)2002Fecal Occult Blood09/11/20028860Jyeinavyodjqp34/10/2002Shingrix Vaccine (1 of 2)2007Medicare Annual Wellness Visit08/02/2008Hepatitis B Vaccine (1 of 3 - Risk 3-dose series)09/11/20173200Moqrratkywy64 Colorectal Cancer Pdupemrgw87/14/2019Pneumococcal Vaccine: 50+ (3 of 3 - PCV20 or PCV21)/01/2017, 07/16/2015Mammogram Uqrbpsjmz55/15/2023 10/16/2022, 10/16/2022, 04/06/2020, Additional history existsAdvance Directive Kdzaetuyvs07/01/2025Covid-19 Vaccine ( season)/, 06/19/2021, 05/28/2021Influenza Vaccine (#1)/, 09/12/2019, 10/14/2018, Additional history existsLDL Wgazgdktegi32, 11/14/2019Urine Albumin:Creatinine RatioHbA1C11/22/2025 05/22/2025, 06/20/2024, 08/04/2023, Additional history existsHepatitis C WzpkezhxzOguxnqnzr10/24/2019, 04/22/2019, 03/17/2006Bone Density Screening Oqdgbfhei48/27/2023RSV JwjevtxMdhbsxkfc46/17/2024 Goals GoalPatient Goal TypeAssociated ProblemsRecent ProgressPatient-Stated?Author Blood Pressure < 130/80 Blood Gmknisij420/76(08/17/2025 4:10 PM EDT)Juan J Perez MD Procedures Procedure NamePriorityDate/TimeAssociated DiagnosisCommentsECG COMPLETERoutine 08/17/2025 4:08 PM EDT Aneurysm of ascending aorta without rupture Essential hypertension Hyperlipidemia, unspecified hyperlipidemia type Obesity, Class III, BMI >= 40 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) (HCC) Smoldering myeloma ECG YPNLQHCO20/16/2025 4:08 PM EDTLVEF TRANSTHORACIC TKBPCxmmikk65/16/2025 3:22 PM EDT BMUPUsbffft36/16/2025 3:22 PM EDT Nonrheumatic aortic valve stenosis Aneurysm of ascending aorta without rupture LIPID PANEL, LLJBVBCUxdqoau49/13/2020 10:13 AM EST Atypical chest pain Thoracic ascending aortic aneurysm (HCC) Abnormal stress test Coronary artery disease involving ho-chunk coronary artery of ho-chunk heart without angina pectoris *HEP C ZQFygpjuv48/24/2019 1:12 PM EDT Cirrhosis of liver without ascites, unspecified hepatic cirrhosis type (HCC) from Last 3 Months or Most Recently Relevant to Health Maintenance Results * ECG COMPLETE (08/17/2025 4:08 PM EDT)ComponentValueRef RangeTest Method Analysis TimePerformed AtPathologist SignatureVentricular Wdjc03LHAUSLQE AND VASCULAR INSTITUTEAtrial Eiml03VFVOQZQX AND VASCULAR INSTITUTEP-R Wdbgrlby207 msHEART AND VASCULAR INSTITUTEQRS Ivraoxsl67baELGKX AND VASCULAR INSTITUTEQT Hkxgmyxy620kcKAOKK AND VASCULAR INSTITUTEQTC Calculation (Bazett)422msHEART AND VASCULAR INSTITUTECalculated P Cobw15mboxrwyNGTRL AND VASCULAR INSTITUTE Calculated R [place]-4degreesHEART AND VASCULAR INSTITUTECalculated T Axis36 degreesHEART AND VASCULAR INSTITUTESpecimen (Source)Anatomical Location / LateralityCollection Method / VolumeCollection TimeReceived Time08/17/2025 4:08 PM EDT Impressions [facility] - 08/19/2025 11:45 AM EDT NORMAL SINUS RHYTHM Confirmed by ARNULFO HENDERSON M.D. ([id number]) on 08/19/2025 11:45:15 AM Narrative [facility] - 08/19/2025 11:45 AM EDT NAME : MOJGAN SNIDER PID : [id number] : 1955 Gender : Female Race : ORD : [id number] Procedure Date : Aug 17 2025 16:08:55 [...] CodePhone Number [facility] [address] [phone] * ECHO (08/17/2025 3:22 PM EDT)Specimen (Source)Anatomical [...] * * * Final * * * [facility] - 08/17/2025 5:30 PM EDT Echocardiography Report: [facility] Date of service: 08/17/2025 3:22:40 PM GAS PRODUCTION OPERATOR Ordering physician: JUAN J MENDEZ Exam [...] OrganizationAddressCity/State/ZIP CodePhone Number [facility] [address] [place] [address] * LVEF TRANSTHORACIC ECHO (08/17/2025 3:22 PM EDT)ComponentValueRef RangeTest MethodAnalysis TimePerformed AtPathologist SignatureLV Ejection Omemjlqn20% [facility] VASCULAR INSTITUTEComment: (2D biplane) EF > 54 An LV Ejection Fraction of > 50% is normal Specimen (Source)Anatomical Location / LateralityCollection Method / Volume Collection TimeReceived Time08/17/2025 3:22 PM EDT Narrative Authorizing ProviderResult TypeResult StatusMark E Andrea MDLVEF RESULTSFinal ResultPerforming OrganizationAddressCity/State/ZIP CodePhone Number [facility] [address] [phone] * LIPID PANEL BASIC (11/14/2019 10:13 AM EST)ComponentValueRef RangeTest Method Analysis TimePerformed AtPathologist SignatureCholesterol, Ykdts762<200 mg/dL 11/14/2019 11:05 AM [facility] QzycomguliPbtjfrogaujr793<150 mg/dL 11/14/2019 11:05 [facility] LaboratoryHDL Ytapdayzsht41>39 mg/dL 11/14/2019 11:05 [facility] LaboratoryLDL Cholesterol, Lqcwuiftki55 <100 mg/dL11/14/2019 11:05 AM [facility] LaboratoryComment: <100 mg/dL, Optimal 100-129 mg/dL, Near optimal/above optimal 130-159 mg/dL, Borderline high 160-189 mg/dL, High >189 mg/dL, Very high Secondary prevention optimal LDL Cholesterol levels are recommended to be < 70 mg/dL Non HDL Vnxoplwlqvy38<130 mg/dL11/14/2019 11:05 AM [facility] Comment: <130 mg/dL, Optimal 130-159 mg/dL, Near optimal/above optimal 160-189 mg/dL, Borderline high 190-219 mg/dL, High >219 mg/dL, Very high Secondary prevention optimal non HDL Cholesterol levels are recommended to be < 100 mg/dL Fasting Werg18opc80/13/2020 10:15 AM [facility] LaboratoryVLDL Cholesterol 22<30 mg/dL11/14/2019 11:05 [facility] LaboratoryTC:HDL Ratio2.28<5.10 11/14/2019 11:05 [facility] LaboratoryLDL:HDL Ratio0.84<2.54011/14/2019 11:05 AM [facility] LaboratoryComment: Reference: 1. National Cholesterol Education Program ATP III Guideline At-A-Glance Quick Desk Reference: National Heart, Lung, and Blood [place]. National Institutes of Health. 2001: NIH Publication No. 01-3305. 2. An International Atherosclerosis Society position paper: global recommendations for the management of dyslipidemia: executive summary, Atherosclerosis. 2014: 232(2):410-413. Specimen (Source)Anatomical Location / LateralityCollection Method / Volume Collection TimeReceived TimeBlood specimen (specimen)BLOOD SPECIMEN / Unknown 11/14/2019 10:13 AM EST11/14/2019 10:15 AM EST Narrative Authorizing ProviderResult TypeResult StatusMark Roberto Mendez MDLABORATORYFinal ResultPerforming OrganizationAddressCity/State/ZIP CodePhone Number [facility] [address] [facility] [place] [address], [facility] * HEP REMOTE PANEL BL (05/25/2019 1:12 PM EDT)ComponentValueRef RangeTest Method Analysis TimePerformed AtPathologist SignatureHep B Core Ab, TotalNegative Znkknaty56/25/2019 1:25 PM EDTClevelAccess Hospital Dayton LaboratoriesHep C Antibody IA IsvbyeqbTdognzip64/25/2019 1:27 PM EDTCMercy Hospital LaboratoriesHBsAg FvnuqvcaOzeodjav94/25/2019 1:25 PM EDTCMercy Hospital LaboratoriesHep B Surface Ab, DkyjUcgrdcypDhsimppd15/25/2019 1:26 PM EDTClevelAccess Hospital Dayton LaboratoriesComment:NEGATIVESpecimen (Source)Anatomical Location / Laterality Collection Method / VolumeCollection TimeReceived TimeBlood specimen (specimen)BLOOD SPECIMEN / Hkpavnk5805/25/2019 1:12 PM EDT05/25/2019 1:14 PM EDT Narrative Authorizing ProviderResult TypeResult StatusJesserlin Yanez VICE PRESIDENT CORPORATE COMMUNICATIONS.CNPLABORATORY Final ResultPerforming OrganizationAddressCity/State/ZIP CodePhone Number [facility] [address] [facility] [place] [address] [facility] [address] [place] [address] from Last 3 Months or Most Recently Relevant to Health Maintenance Insurance * Guarantor: Mojgan Sniderount TypeRelation to PatientDate of BirthPhone Billing [id number] [address] [place] [address] Care Teams Team MemberRelationshipSpecialtyStart DateEnd Date Vitaliy Thomson MD [address] [place] [address] PCP - [facility]01/22/15 Daniella Lima NP [address] [place] [address] [facility]04/18/19
--- OUTSIDE RECORDS SUMMARY | 2025-10-03 10:37 | XMS_ITS | Encounter Summary ---
Author Organization [facility] Address [address] [facility] [place] [address] Care Team Providers Care Gravity Prospecting Observer Helper Name Role Phone Vitaliy Thomson MD Unavailable [phone] Sima Paul RN Unavailable [phone] Power Swain DO Primary Care Provider [phone] Encounter Details DateTypeDepartmentCare Team (Latest Contact Info)Exklsvruals26/25/2025Patient Outreach [facility] [address] [place] [address] Sima Paul, RN [address] [place] [address] Social History Tobacco UseTypesPacks/DayYears UsedDateSmoking Tobacco: FormerCigarettes [...] on one occasion?Never06/15/2025PHQ-2AnswerDate Recorded Patient Health Questionnaire-2 Ynvhz55111/11/2024CommentsNoSex and Gender InformationValueDate RecordedSex Assigned at BirthNot on fileLegal SexFemale 01/14/2023 6:38 PM EDTGender IdentityNot on fileSexual OrientationNot on file OccupationIndustryJob Start DateJob End DateRetiredNot on fileNot on fileNot on filedocumented as of this encounter Progress Notes * Sima Paul RN - 09/26/2025 9:44 AM EST Pt calls for refill on Carvedilol Reviewed and medication was dc'd on H discharge 08/30/25 Pt reports she continued to take med, advised amlodipine was ordered on discharge. [place] the carvedilol was possibly contributing to bronchospasms. Advised pt to stop med per recommendations. Pt did not start the amlodipine per her report because my bp was good . documented in this encounter Plan of Treatment DateTypeDepartmentCare Team (Latest Contact Info)Axhijrayjyp02/08/2025 9:40 AM ESTOffice Visit [facility] [place] [facility] [address], [place] [address] [place] [address] Power Swain DO [address] [facility] [address] [place] [address] documented as of this encounter Visit Diagnoses Diagnosis Essential hypertension- Primary Unspecified essential hypertension documented in this encounter Additional Health Concerns AssessmentNoted TimePHQ-9 Depression Total Score: 9:00 AM EST documented as of this encounter Care Teams Team MemberRelationshipSpecialtyStart DateEnd Date Vitaliy Thomson MD [address] [place] [address] PCP - [facility]03/26/23 Power Swain DO [address] [place] [address] [place] [address] PCP - GeneralFamily Medicine04/25/25 Sima Paul, RN [address] [place] [address] Registered NurseFamily Uxpdlqnh38/23/23documented as of this encounter
--- OUTSIDE RECORDS SUMMARY | 2025-10-03 10:37 | XMS_ITS | Clinical Summary ---
Author Organization [facility] Address [address] [place] [address] Phone Care Team Providers Care Repairer Veneer Sheet Name Role Phone Supa Lindquist MD PhD Unavailable [phone] Jessica Grove RN Unavailable Unavailable Lisette Perkins ACADEMIC SUPPORT CENTER DIRECTOR-AIRLINE TRANSPORT PILOT Unavailable [phone] Theresa Romano MD PhD Unavailable [phone] Negro Epps MD PhD Unavailable [phone] Power Swain DO Primary Care Provider [phone] Allergies Active AllergyReactionsCriticalityNoted JotjUcabzvjzKehitaooLyotcLmu17/14/2016 AmoxicillinSwelling,CdvtTss78//1447EnmnbxqxhjAsckemaAhl43/20/2023Moxifloxacin WellWtm7708/04/20236426AlogcalhavVunzzVbi42/24/3759OriwslcjmgcmSsaapFok41/30/2013Latex Hives,IdsbXxswsg98/03/2023TetracyclinesHives,EiglUctdci48/03/2023 Medications MedicationSigDispense QuantityRefillsLast FilledStart DateEnd DateStatus albuterol [...] TIMES DAILY FOR PAIN FOR 30 DAYS02/11/2024ctive ckzwpgiaag-wtppzxep-njbzctnaqp (Breztri Aerosphere) 160-9-4.8 mcg/actuation HFA aerosol inhaler [...] TO 4 TIMES PER DAY NEEDED FOR PSDJHLASJIL91/15/2025Active Ozempic 0.25 mg or 0.5 mg (2 mg/3 mL) pen injector Inject 0.5 mg under the skin 1 (one) time per week.08/23/2024ctive spironolactone (Aldactone) 50 mg tablet Take 1 tablet (50 mg) by mouth early in the morning..10/06/2024ctive Active Problems ProblemNoted DateDiagnosed DateMultiple myeloma not having achieved remission 10/20/20238971Vmksrqxclpqb49/13/2023 Assessment & Plan (08/17/2023 7:42 AM EDT): Due to disease and chemotherapy Transfuse for Hgb < 7 g/dL and platelets < 10 k/uL or bleeding Assessment & Plan (08/14/2023 11:02 AM EDT): :: Due to disease and chemotherapy - Transfuse for Hgb < 7 g/dL and platelets < 10 k/uL or bleeding Dakxzmvlzxlc33/04/6885Iuiuxyblgwxiry85/04/2023Type 2 diabetes gbovurlo82/04/2023 Peripheral bavofafplt65/04/2023Multiple tnifoqi3408/03/2023 Assessment & Plan (09/28/2023 6:52 PM EST): Referral from Dr. Marinelli at [facility]. MGUS since 2005 Followed at [facility] by Dr. 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 Also clonal evolution in the [...] Plan, so I will enter these outside Wnhtpbxuxx12/19/9788Cfsbvfoploek35/19/1804Qhnhsczgfineoqrmjexgo81/19/2023 Immunodeficiency brbrbpaq30/06/2021 Assessment & Plan (02/14/2024 6:23 PM EDT): Infection prophylaxis VZV: Acyclovir 400 mg PO BID PJP: Trimethoprim-sulfamethoxazole 800-160 mg PO 3x weekly Hypogammaglobulinemia IVIG given 09/22/23, 10/29/23 ([facility]) 12/08/23 01/12/24 02/12/24. Cont monthly. Assessment & Plan (01/28/2024 12:26 PM EDT): Infection prophylaxis VZV: Acyclovir 400 mg PO BID PJP: Trimethoprim-sulfamethoxazole 800-160 mg PO 3x weekly Hypogammaglobulinemia IVIG given 09/22/23, 10/29/23 ([facility]) 12/08/23 and 01/12/24. Cont monthly. Assessment & Plan (01/14/2024 10:27 AM EDT): Infection prophylaxis VZV: Acyclovir 400 mg PO BID PJP: Trimethoprim-sulfamethoxazole 800-160 mg PO 3x weekly Hypogammaglobulinemia IVIG given 09/22/23, 10/29/23 ([facility]) and 12/08/23. Plan next today 01/12/24. Assessment & Plan (01/03/2024 11:33 AM EST): Infection prophylaxis VZV: Acyclovir 400 mg PO BID PJP: Trimethoprim-sulfamethoxazole 800-160 mg PO 3x weekly Hypogammaglobulinemia IVIG given 09/22/23, 10/29/23 ([facility]) and 12/08/23. Plan next dose 01/05/24. Assessment & Plan (11/28/2023 4:08 PM EST): Infection prophylaxis VZV: Acyclovir 400 mg PO BID PJP: Trimethoprim-sulfamethoxazole 800-160 mg PO 3x weekly Hypogammaglobulinemia IVIG given 09/22/23 and 10/29/23 ([facility]) Plan next dose 12/08/23 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)07/11/2019 Primary localized osteoarthrosis of ankle and foot06/01/2019Chronic obstructive pulmonary hxyrjra9504/19/2019Smoldering hwlcoqu4504/19/2019Thoracic aortic aneurysm without moqvdpj9004/15/2019GERD (gastroesophageal reflux disease)04/07/2018Morbid kvmjpja2011/11/2017Familial jcprriffcwqseyhlbjal00/12/2015Thrombocytopenia 05/31/2014Sleep apnea04/15/2006Monoclonal tipavmehrvdamio49/25/2006 Resolved Problems ProblemNoted DateDiagnosed DateResolved DateImmunosuppressed vwhcjn5208/14/2023 11/27/2023 Assessment & Plan (11/18/2023 12:39 PM EST): Infection prophylaxis VZV: Continue acyclovir 400 mg PO BID PJP: Continue trimethoprim-sulfamethoxazole 800-160 mg PO 3x weekly Hypogammaglobulinemia IVIG given 09/22/23 and 10/29/23 ([facility]) Assessment & Plan (08/17/2023 7:42 AM EDT): - VZV: Continue acyclovir 400 mg PO BID - PJP: Continue trimethoprim-sulfamethoxazole 800-160 mg PO 3x weekly Assessment & Plan (08/14/2023 10:20 AM EDT): - VZV: Continue acyclovir 400 mg PO BID - PJP: Continue trimethoprim-sulfamethoxazole 800-160 mg PO 3x weekly Multiple myeloma, remission status adlgfemibuz42Obesity, Class III, BMI 40-49.9 (morbid obesity)typical chest pain Vitamin D dixhdrjwpi99 Immunizations ImmunizationAdministration DatesNext DueFlu vaccine (IIV4), preservative free *Check age/dose*09/12/2019,10/14/2018Influenza, Tkvxauzoxmn2019Influenza, seasonal, adwqhggnis13/14/2015Influenza, seasonal, intradermal, preservative free10/05/2017Pneumococcal conjugate vaccine, 13-valent (PREVNAR 13)07/16/2015 Pneumococcal polysaccharide vaccine, 23-valent, age 2 years and older (PNEUMOVAX 23)10/05/2017 Family History Medical HistoryRelationNameCommentsLung cancerBrotherCancerFatherCoronary artery diseaseFatherLeukemiaMaternal GrandmotherCancerMotherCancerPaternal Grandmother Breast cancerSisterRelationNameStatusCommentsBrotherFatherMaternal Grandmother MotherPaternal GrandmotherSister Social History Tobacco UseTypesPacks/DayYears UsedDateSmoking Tobacco: OswsgoHxbgwseicu343.7 11/02/1976 - 08/02/2003Passive Smoke Exposure: PastSmokeless Tobacco: [...] steady place to sleep or slept in [facility] (including now)?No11/19/2023CommentsUnknown Sex and Gender InformationValueDate RecordedSex Assigned at BirthNot on file Legal KapQdsrcc65/25/2022 4:17 PM ESTGender IdentityNot on fileSexual WsxjhybcddbUapbdjoe82/21/2025 6:11 AM EDT Last Filed Vital Signs Vital SignReadingTime TakenCommentsBlood Itysfhyc075/6208 12:41 PM EDT Dvnmh748206/22/2025 12:41 PM HUTKtvdupzyhos54.4 ??C (97.5 ??F)06/22/2025 12:41 PM EDTRespiratory Pqbh592406/22/2025 12:41 PM EDTOxygen Ezxtpdmpfg48%06/22/2025 12:41 PM EDTInhaled Oxygen Concentration--Zpjnmh23.5 kg (193 lb)06/22/2025 6:39 AM EDT Ixcviq002.5 cm (5' 2 )06/22/2025 6:39 AM EDTBody Mass Index35.308 6:39 AM EDT Plan of Treatment Health MaintenanceDue DateLast DoneCommentsCT Cbvbzwcokelq1957FIT-DNA (Cologuard)1957FIT1957 8103Pzmhdrcfpghax1957MMR Vaccines (1 of 1 - Standard series)1958COVID-19 Vaccine (#1)1962Hepatitis C Screening 1975Hepatitis A Vaccines (1 of 2 - Risk 2-dose series)1976Zoster Vaccines (1 of 2)1976DTaP/Tdap/Td Vaccines (1 - Tdap)1979Hepatitis B Vaccines (1 of 3 - Risk 3-dose series)2017Diabetes: Retinopathy Screening /Pneumococcal Vaccine (3 of 3 - PCV20 or PCV21)10/05/2022 10/05/2017, 07/16/20150815Apvlcgtym36, 10/16/2022, 04/06/2020 Diabetes: Hemoglobin A1C01/03455176/12/2022Medicare Annual Wellness Visit (AWV) , 11/22/2021, 11/23/2020, Additional history existsBone Density Scan5012/29/2022, 12/29/2022Influenza Vaccine (#1)2025 10/18/2024, 09/12/2019, 09/12/2019, Additional history existsDiabetes: Urine Protein Lowizfpnp32/, 11/30/2023Lipid Panel/ Vhtyvlhxxhs23/14/202811/, 05/01/2015Colorectal Cancer Vmotuzqdu34/14/2028 Welcome to Medicare KgbzvSmeilulmjmqv85/30/2023, 11/22/2021, 11/23/2020, Additional history existsRSV High Risk: (Elderly (60+) or Population) Djsmasmtw75/17/2024HIB VaccinesAged OutNo longer eligible based on patient's [...] PlanAutogenerated ProblemRebecca Suero Procedures Procedure NamePriorityDate/TimeAssociated DiagnosisCommentsHEMOGLOBIN H1TVatruor 08/04/2023 2:49 AM EDT from Last 3 Months or Most Recently Relevant to Health Maintenance Results * Hemoglobin A1C (08/04/2023 2:49 AM EDT)ComponentValueRef RangeTest Method Analysis TimePerformed AtPathologist SignatureHemoglobin A1C4.9see below % 08/04/2023 4:08 AM [facility] LABEstimated Average Tqgvxhe14Wdn Established mg/dL08/04/2023 4:08 AM [facility] LABSpecimen (Source)Anatomical Location / LateralityCollection Method / VolumeCollection TimeReceived TimeBloodVenous blood specimen / Weqofiy9108/04/2023 2:49 AM EDT1 3:18 AM EDT Narrative Authorizing ProviderResult TypeResult StatusXhuliana Jeannette PA-CLAB BLOOD ORDERABLESFinal ResultPerforming OrganizationAddressCity/State/ZIP CodePhone Number [facility] [id number] [place] [address] from Last 3 Months or Most Recently Relevant to Health Maintenance Additional Health Concerns Active ProblemsNoted DateDiagnosed DateAutogenerated Tyzszyo2705/01/2025 Insurance Advance Directives For more information, please contact: [phone] (Available ) * Full Code (Latest Code Status on File) Date ActivatedDate InactivatedComments11/18/2023 2:23 PMQuestionAnswerComments Plan of Care:* Code Status Discussion Completed Decision Maker:* Patient * Full Code Date ActivatedDate KkydnqqmmmiFhstqces32/3/2023 12:24 AM08/13/2023 3:26 PM QuestionAnswerCommentsPlan of Care:* Code Status Discussion Completed Decision Maker:* Patient * Full Code Date ActivatedDate WxjcngdzayxFtetwupp01/3/2023 12:24 AM08/04/2023 12:24 AM QuestionAnswerCommentsPlan of Care:* Code Status Discussion Completed Decision Maker:* Patient Care Teams Team MemberRelationshipSpecialtyStred wing [place] [address] [place] [address] [facility] - [facility]/09/25 Supa Lindquist MD PhD [id number] [place] [address] Consulting PhysicianHematology and Ivxsziey90/2/23 Jessica Grove, brim ironer hand CoordinatorCase Xfjajvjuck82/3/23 Lisette Perkins, [facility]EMIC SUPPORT CENTER DIRECTOR-AIRLINE TRANSPORT PILOT Nurse PractitionerHematology and Wfwkdebf97/13/23 Theresa Romano MD PhD [address] [place] [address] Consulting PhysicianHematology and Oncology11/18/23 Negro Epps MD PhD [address] [place] [address] Consulting PhysicianHematology and Oncology01/19/24
--- OUTSIDE RECORDS SUMMARY | 2025-10-03 10:37 | XMS_ITS | Encounter Summary ---
Author Organization [facility] Address [address] [place] [address] Care Team Providers Care Bi Architect Name Role Phone Vitaliy Thomson MD Unavailable [phone] Sima Paul RN Unavailable [phone] Power Swain DO Primary Care Provider [phone] Reason for Visit * ReasonOnset DateCommentsMed Qaqyzr3109/20/2025 Encounter Details DateTypeDepartmentCare Team (Latest Contact Info)Dcwimwnfkbf96/19/2025Telephone [facility] [address] [place], [facility] [address] [place] [address] Power Swain DO [address] [facility] [place] [address] [place] [address] Med Refill Social History Tobacco UseTypesPacks/DayYears UsedDateSmoking [...] on one occasion?Never06/15/2025PHQ-2AnswerDate Recorded Patient Health Questionnaire-2 Qywix57411/11/2024CommentsNoSex and Gender InformationValueDate RecordedSex Assigned at BirthNot [...] is about out - requesting refill to [facility] pharmacy in [place] documented in this encounter Plan of Treatment DateTypeDepartmentCare Team (Latest Contact Info)Mcukgkfujwg00/08/2025 9:40 AM ESTOffice Visit NOMM[facility] [address], [place] [address] [place] [address] Power Swain DO [address] [place] [address] [place] [address] documented as of this encounter Visit Diagnoses Diagnosis COPD with acute exacerbation (HCC) documented in this encounter Additional Health Concerns AssessmentNoted TimePHQ-9 Depression Total Score: 9:00 AM EST documented as of this encounter Care Teams Team MemberRelationshipSpecialtyStart DateEnd Date Vitaliy Thomson MD [address] [place] [address] PCP - ACO Reach03/26/23 Power Swain DO [address] [place] [address] [place] [address] PCP - GeneralFamily Medicine04/25/25 Sima Paul, RN [address] [place] [address] Registered NurseFamily Siuflbth76/23/23documented as of this encounter
--- OUTSIDE RECORDS SUMMARY | 2025-10-03 10:38 | XMS_ITS | Encounter Summary ---
Author Organization [facility] Address [address] [place] [address] Care Team Providers Care Wet Primer Powder Blender Name Role Phone Vitaliy Thomson MD Unavailable [phone] Sima Paul RN Unavailable [phone] Power Swain DO Primary Care Provider [phone] Encounter Details DateTypeDepartmentCare Team (Latest Contact Info)Nwwlbuwkqjq07/18/2025External Result Encounter [facility] External Department Unsolicited Fabiola Marinelli MD [address] [place] [address] Social History Tobacco UseTypesPacks/DayYears UsedDateSmoking [...] on one occasion?Never06/15/2025PHQ-2AnswerDate Recorded Patient Health Questionnaire-2 Bqcym64011/11/2024CommentsNoSex and Gender InformationValueDate RecordedSex Assigned at BirthNot on fileLegal SexFemale 01/14/2023 6:38 PM EDTGender IdentityNot on fileSexual OrientationNot on file OccupationIndustryJob Start DateJob End DateRetiredNot on fileNot on fileNot on filedocumented as of this encounter Plan of Treatment DateTypeDepartmentCare Team (Latest Contact Info)Cjkxfjvlvue69/08/2025 9:40 AM ESTOffice Visit [facility] [address], [place] [address] [place] [address] Power Swain, DO [address] [place] [address] [place] [address] NameTypePriorityAssociated DiagnosesDate/TimeCBC auto differentialLabRoutine 09/19/2025 10:00 AM ESTdocumented as of this encounter Procedures Procedure NamePriorityDate/TimeAssociated DiagnosisCommentsSCAN AND CBCRoutine 09/19/2025 10:00 AM EST documented in this encounter Results * (ABNORMAL) SCAN AND CBC (09/19/2025 10:00 AM EST)ComponentValueRef RangeTest MethodAnalysis TimePerformed AtPathologist SignatureWBC1.2(L)3.8 - 11.6 [CFU]/mL09/19/2025 10:49 AM [facility] CtrUNCORRECTED WHITE BLOOD COUNT1.2(L)3.8 - 11.6 10*3/uL09/19/2025 10:49 AM [facility] CtrRBC3.25(L)3.60 - 5.00 10*6/uL09/19/2025 10:49 AM [facility] PsuPYIJQJXHLY22.0(L)11.8 - 15.4 g/dL09/19/2025 10:49 AM [facility] PafTUBXDCTMKO54.8(L)34.0 - 46.4 %09/19/2025 10:49 AM [facility] WfuMOL04.080 - 100 fL09/19/2025 10:49 AM [facility] IluUJG52.824.7 - 34.3 pg09/19/2025 10:49 AM [facility] HirBDWJ85.532.0 - 35.0 g/dL09/19/2025 10:49 AM [facility] CtrRED CELL DISTRIBUTION WIDTH, RDW20.1(H)11.9 - 15.3 %09/19/2025 10:49 AM [facility] CtrPLATELET COUNT45(L) 150 - 450 10*3/uL09/19/2025 10:49 AM [facility] CtrMEAN PLATELET VOLUME, MPV8.66.3 - 10.7 fL09/19/2025 10:49 AM [facility] CtrNEUTROPHILS, %53.9. %09/19/2025 11:40 AM [facility] CtrLYMPHOCYTES, %23.1. %09/19/2025 11:40 AM [facility] CtrMONOCYTE/MACROPHAGE, %16.2. %09/19/2025 11:40 AM [facility] CtrEOSINOPHILS, %5.4. %09/19/2025 11:40 AM [facility] CtrBASOPHILS, %1.4. %09/19/2025 11:40 AM [facility] CtrNRBC0.40 - 0.5 /100{WBC}09/19/2025 11:40 AM [facility] CtrNEUTROPHILS0.7(L)1.8 - 7.7 10*3/uL09/19/2025 11:40 AM [facility] CtrLYMPHOCYTES0.3(L)1.00 - 4.8 10*3/uL09/19/2025 11:40 AM [facility] CtrMONOCYTES0.20.0 - 0.8 10*3/uL 09/19/2025 11:40 AM [facility] CtrEOSINOPHILS0.10.0 - 0.45 10*3/uL09/19/2025 11:40 AM [facility] CtrBASOPHILS0.00.0 - 0.2 10*3/uL09/19/2025 11:40 AM [facility] CtrANISOCYTOSIS Xaafez24/ 11:40 AM [facility] CtrOVALOCYTESSlight 09/19/2025 11:40 AM [facility] CtrPLATELET ESTIMATE QbjwqqoalJsmncd75/18/2025 11:40 AM [facility] CtrPLATELET JOHEXKSZGRWfhqnsBkgykz12/18/2025 11:40 AM [facility]tr Specimen (Source)Anatomical Location / LateralityCollection Method / Volume Collection TimeReceived TimeBlood (Blood)09/19/2025 10:00 AM EST09/19/2025 10:19 AM EST Narrative Authorizing ProviderResult TypeResult StatusFabiola Marinelli MDLAB BLOOD ORDERABLES Final ResultPerforming OrganizationAddressCity/State/ZIP CodePhone Number [facility] [address] [place] [address], [facility] [address] [place] [address] documented in this encounter Visit Diagnoses Not on filedocumented in this encounter Additional Health Concerns AssessmentNoted TimePHQ-9 Depression Total Score: 9:00 AM EST documented as of this encounter Care Teams Team MemberRelationshipSpecialtyStart DateEnd Date Vitaliy Thomson MD [address] [place] [address] PCP - ACO Reach03/26/23 Power Swain DO [address] [place] [address] [place] [address] PCP - GeneralFamily Medicine04/25/25 Sima Paul, [place]ES [address] [place] [address] Registered NurseFamily Gtthpxzr48/23/23documented as of this encounter
--- OUTSIDE RECORDS SUMMARY | 2025-10-03 10:38 | XMS_ITS | Encounter Summary ---
Author Organization [facility] Address [address] [place] [address] Care Team Providers Care Carton Lettering Machine Operator Name Role Phone Vitaliy Thomson MD Unavailable [phone] Sima Paul RN Unavailable [phone] Power Swain DO Primary Care Provider [phone] Encounter Details DateTypeDepartmentCare Team (Latest Contact Info)Dvuhjbswqbc77/19/2025bstract [facility] [address] [place], [facility] [address] [place] [address] Power Swain DO [address] [facility] [place] [address] [place] [address] Social History Tobacco UseTypesPacks/DayYears UsedDateSmoking Tobacco: FormerCigarettes [...] on one occasion?Never06/15/2025PHQ-2AnswerDate Recorded Patient Health Questionnaire-2 Bzluw87111/11/2024CommentsNoSex and Gender InformationValueDate RecordedSex Assigned at BirthNot on fileLegal SexFemale 01/14/2023 6:38 PM EDTGender IdentityNot on fileSexual OrientationNot on file OccupationIndustryJob Start DateJob End DateRetiredNot on fileNot on fileNot on filedocumented as of this encounter Plan of Treatment DateTypeDepartmentCare Team (Latest Contact Info)Rgtuqneuluu09/08/2025 9:40 AM ESTOffice Visit [facility] [address], [place] [address] [place] [address] Power Swain DO [address] [facility] [address] [place] [address] documented as of this encounter Visit Diagnoses Not on filedocumented in this encounter Additional Health Concerns AssessmentNoted TimePHQ-9 Depression Total Score: 9:00 AM EST documented as of this encounter Care Teams Team MemberRelationshipSpecialtyStart DateEnd Date Vitaliy Thomson MD [address] [place] [address] PCP - ACO Reach03/26/23 Power Swain DO [address] [facility] [address] [place] [address] PCP - GeneralFamily Medicine04/25/25 Sima Paul, [place]ES [address] [place] [address] Registered NurseFamily Kdclbmjz84/23/23documented as of this encounter
--- OUTSIDE RECORDS SUMMARY | 2025-10-03 10:38 | XMS_ITS | Encounter Summary ---
Author Organization [facility] Address [address] [facility] [place] [address] Care Team Providers Care Haul Cane Brakeman Name Role Phone Vitaliy Thomson MD Unavailable [phone] Sima Paul RN Unavailable [phone] Power Swain DO Primary Care Provider [phone] Encounter Details DateTypeDepartmentCare Team (Latest Contact Info)Lmlypgqjkma81/18/2025Patient Outreach [facility] [address] [place] [address] Sima Paul, RN [address] [place] [address] Social History Tobacco UseTypesPacks/DayYears UsedDateSmoking Tobacco: FormerCigarettes [...] on one occasion?Never06/15/2025PHQ-2AnswerDate Recorded Patient Health Questionnaire-2 Zxdbf75211/11/2024CommentsNoSex and Gender InformationValueDate RecordedSex Assigned at BirthNot [...] Flowsheet Row Patient Outreach from 09/19/2025 in [facility] with Sima Paul RN Week Number [...] Plan of Treatment DateTypeDepartmentCare Team (Latest Contact Info)Bcxlkzrhjsu17/08/2025 9:40 AM ESTOffice Visit [facility] [place] [facility] [address], [place] [address] [place] [address] Power Swain DO [address] [place] [address] [place] [address] documented as of this encounter Visit Diagnoses Diagnosis Essential hypertension- Primary Unspecified essential hypertension Chronic obstructive pulmonary disease, unspecified COPD type (HCC) documented in this encounter Additional Health Concerns AssessmentNoted TimePHQ-9 Depression Total Score: 9:00 AM EST documented as of this encounter Care Teams Team MemberRelationshipSpecialtyStart DateEnd Date Vitaliy Thomson MD [address] [place] [place] [address] PCP - ACO Reach03/26/23 Power Swain DO [address] [facility] [address] [place] [address] PCP - GeneralFamily Medicine04/25/25 Sima Paul, LES [address] [place] [address] Registered NurseFamily Tqzewlbl12/23/23documented as of this encounter
--- OUTSIDE RECORDS SUMMARY | 2025-10-03 10:38 | XMS_ITS | Encounter Summary ---
Author Organization [facility] Address [address] [place] [address] Care Team Providers Care Graduate Teaching Associate Name Role Phone Vitaliy Thomson MD Unavailable [phone] Sima Paul RN Unavailable [phone] Power Swain DO Primary Care Provider [phone] Encounter Details DateTypeDepartmentCare Team (Latest Contact Info)Vucbwvjgwvu82/18/2025External Result Encounter [facility] Unsolicited Fabiola Marinelli MD [address] [place] [address] Social History Tobacco UseTypesPacks/DayYears UsedDateSmoking [...] on one occasion?Never06/15/2025PHQ-2AnswerDate Recorded Patient Health Questionnaire-2 Hmhyh12311/11/2024CommentsNoSex and Gender InformationValueDate RecordedSex Assigned at BirthNot on fileLegal SexFemale 01/14/2023 6:38 PM EDTGender IdentityNot on fileSexual OrientationNot on file OccupationIndustryJob Start DateJob End DateRetiredNot on fileNot on fileNot on filedocumented as of this encounter Plan of Treatment DateTypeDepartmentCare Team (Latest Contact Info)Smovuchrwya15/08/2025 9:40 AM ESTOffice Visit [facility] [address], [address] [place] [phone] Power Swain, DO [address] [place] [address] documented as of this encounter Procedures Procedure NamePriorityDate/TimeAssociated DiagnosisCommentsIRON AND TOTAL IRON BINDING STNOJTGELdcrpxl16/18/2025 10:00 AM EST POUWVLRJHtqungv70/18/2025 10:00 AM EST COMPREHENSIVE METABOLIC IENEGShgwgja07/18/2025 10:00 AM EST documented in this encounter Results * Ferritin (09/19/2025 10:00 AM EST)ComponentValueRef RangeTest MethodAnalysis TimePerformed AtPathologist LzeoqotgxGZMJHSIJ311.411.0 - 306.8 ng/mL09/19/2025 11:21 AM [facility] CtrSpecimen (Source)Anatomical Location / LateralityCollection Method / VolumeCollection TimeReceived TimeOther Topography unknown / Rqhmchg5409/19/2025 10:00 AM EST09/19/2025 10:19 AM EST Narrative Authorizing ProviderResult TypeResult StatusFabiola Marinelli MDLAB BLOOD ORDERABLES Final ResultPerforming OrganizationAddressCity/State/ZIP CodePhone Number [facility] [address] [place] [address], [facility] [address] [place] [address] * (ABNORMAL) Iron and TIBC (09/19/2025 10:00 AM EST)ComponentValueRef RangeTest MethodAnalysis TimePerformed AtPathologist UlsxvvpgkOUEC3927 - 212 ug/dL 09/19/2025 11:02 AM [facility] CtrTOTAL IRON BINDING ATZQPJXN000(L)255 - 450 ug/dL09/19/2025 11:02 AM [facility]tr% IRON SBOLESPULG89.320 - 50 %09/19/2025 11:02 AM [facility] IakJZQBIQZOQXR545(L)203 - 362 mg/dL09/19/2025 11:02 AM [facility] CtrSpecimen (Source)Anatomical Location / Laterality Collection Method / VolumeCollection TimeReceived TimeOtherTopography unknown / Ecbkxim0009/19/2025 10:00 AM EST09/19/2025 10:19 AM EST Narrative Authorizing ProviderResult TypeResult StatusFabiola Marinelli MDLAB BLOOD ORDERABLES Final ResultPerforming OrganizationAddressCity/State/[facility] CodePhone Number [facility] [address] [place] [address], [facility] [address] [place] [address] * (ABNORMAL) Comprehensive metabolic panel (09/19/2025 10:00 AM EST)Component ValueRef RangeTest MethodAnalysis TimePerformed AtPathologist SignatureGlucose 199(H)70 - 100 mg/dL09/19/2025 11:02 AM [facility] Comment: Random Glucose Reference Range is dependent on time and content of last meal. Glucose of more than 200 mg/dL in a nonstressed, ambulatory subject supports the diagnosis of Diabetes Mellitus. ADA recommended reference range WAG740 - 25 mg/dL09/19/2025 11:02 AM [facility] CtrCREATININE 0.870.60 - 1.20 mg/dL09/19/2025 11:02 AM [facility] ESTIMATED GFR>60. 11:02 AM [facility] ZpyXwmivo677 (L)136 - 145 mmol/L111/19/2024 11:02 AM [facility] Potassium, Bld4.03.5 - 5.1 mmol/L111/19/2024 11:02 AM [facility] EbqDgdllplg68240 - 107 mmol/L111/19/2024 11:02 AM [facility] CtrCarbon Mznoaoy60.021.0 - 31.0 mmol/L111/19/2024 11:02 AM [facility] CtrAnion Gap9.06.0 - 15.011 11:02 AM [facility] CtrCalcium7.7(L)8.6 - 10.3 mg/dL09/19/2025 11:02 AM [facility] CtrTOTAL PROTEIN5.5(L)6.4 - 8.9 g/dL09/19/2025 11:02 AM [facility] CtrALBUMIN LEVEL3.3(L)3.5 - 5.7 g/dL09/19/2025 11:02 AM [facility] CtrGLOBULIN2.2g/dL09/19/2025 11:02 AM [facility] CtrALBUMIN/GLOBULIN RATIO1.511 11:02 AM [facility] CtrBILIRUBIN,TOTAL1.3(H)0.3 - 1.0 mg/dL09/19/2025 11:02 AM [facility] CtrComment: Samples from patients who have taken Naproxen have shown spurious elevation in Total Bilirubin levels. ??A metabolite of Naproxen, O-desmethylnaproxen, has been shown to interfere with the Shanon-Felicitas method for measuring Total Bilirubin. ASPARTATE AMINO UGPNBWKOFQT5834 - 39 U/L111/19/2024 11:02 AM [facility] CtrALANINE MNJAEDDBMYJVJRFV925 - 52 U/L111/19/2024 11:02 AM [facility] CtrALKALINE DOGKKJJPOKC444(H)34 - 104 U/L111/19/2024 11:02 AM [facility] CtrCREATININE CLR CALC QCWVGKWW68.99 09/19/2025 11:02 AM [facility] CtrSpecimen (Source)Anatomical Location / LateralityCollection Method / VolumeCollection TimeReceived TimeOther Topography unknown / Kszhpuf5209/19/2025 10:00 AM EST09/19/2025 10:19 AM EST Narrative Authorizing ProviderResult TypeResult StatusFabiola Marinelli MDLAB BLOOD ORDERABLES Final ResultPerforming OrganizationAddressCity/State/ZIP CodePhone Number [address] [place] [address], [facility] [address] [facility] [place] [address] documented in this encounter Visit Diagnoses Not on filedocumented in this encounter Additional Health Concerns AssessmentNoted TimePHQ-9 Depression Total Score: 9:00 AM EST documented as of this encounter Care Teams Team MemberRelationshipSpecialtyStart DateEnd Date Vitaliy Thomson MD [address] [place] [address] PCP - ACO Reach03/26/23 Power Swain DO [address] [place] [address] [place] [address] PCP - GeneralFamily Medicine04/25/25 Sima Paul RN [address] [place] [address] Registered NurseFamily Iajuznrq43/23/23documented as of this encounter
[2025-10-03 11:30] VITALS: BP 123/65; PULSE 110; TEMP 36.4; O2SAT 96
[2025-10-03] MEDS: LIDOCAINE 2% JELLY 10 ML UR (12:15)
[2025-10-03 12:18] VITALS: BP 116/67; PULSE 108; O2SAT 97
[2025-10-03 12:19] VITALS: BP 111/55
--- NOTE | 2025-10-03 12:21 | PM.URSON ---
Urology Surgery Operative Note Operative Note Procedure Date: 10/03/25 Time Out Performed: yes Pre-op Diagnosis: Bladder lesions; gross hematuria Post-op Diagnosis: same as pre-op Procedures performed: 1. Cystoscopy. Anesthesia: local Primary Surgeon: Marlon Valenzuela Complications: None Estimated blood loss (mL): 0 Findings: Total resolution of all red lesions within the bladder. Specimens: None Drains: None Indications for Procedures: This lady had painless gross hematuria and diffuse ulcerative flat red bladder lesions with a negative cytology. She has been on a few months of low-dose antibiotics and undergoing timed voids. She now presents for second look cystoscopy. She has signed an informed consent after risks were explained. Detailed description of Procedure: The patient was kept on the gurney bed and brought into the endoscopy suite. She was in the supine position. Her legs were frog-legged and her perineum and genitalia were sterilely prepped and draped in the usual fashion. 2% lidocaine gel was passed per urethra. Timeout was done by all parties in the room. I started by passing a flexible cystoscope per urethra and into the bladder. Careful panendoscopy in the bladder revealed no evidence of any papillary tumors. 95 to 98% of all of the red ulcerative areas have subsided. No trabeculation was noted. No diverticuli were seen. On retroflex no new findings were noted. The scope was then removed. She was then discharged to home with instructions of timed and double voids. Follow-up will be in half a year.
== END 2025-10-03 12:25 | disposition home or self-care (01) ==
PROVIDERS: PCP Student in an Organized Health Care Education/Training Program; Visit Provider Urology
PROC: (CPT 52000; principal; 2025-10-03 11:00)
DX: R31.0 Gross hematuria (principal); J44.9 Chronic obstructive pulmonary disease, unspecified; E11.9 Type 2 diabetes mellitus without complications; F32.A Depression, unspecified; I10 Essential (primary) hypertension; E78.5 Hyperlipidemia, unspecified; C90.00 Multiple myeloma not having achieved remission; K76.9 Liver disease, unspecified; D64.9 Anemia, unspecified; Z90.710 Acquired absence of both cervix and uterus; Z90.49 Acquired absence of other specified parts of digestive tract; Z98.51 Tubal ligation status; Z79.84 Long term (current) use of oral hypoglycemic drugs; Z87.891 Personal history of nicotine dependence
CPT/HCPCS: 52000

== ENCOUNTER 2025-10-11 12:50 | Emergency (ER) | payer MEDICARE, MEDICAID, SELFPAY ==
[2025-10-11] VITALS (10 sets, daily range): BP systolic 103–153; BP diastolic 60–70; PULSE 87–109; TEMP 37.1; O2SAT 98–99; BMI 32.9
--- NOTE | 2025-10-11 13:24 | ECG_ITS ---
[facility] Test Date: 2025-10-11 Pat Name: NANNETTE PÉREZ Department: Room: - Gender: Female Manager Of Quality: : 1955 Requested By: [id number] Order Number: [id number] Reading MD: FOREIGN GARZON M.D. Measurements Intervals [place] Rate: 92 P: 13 VA: 156 QRS: 1 QRSD: 76 T: 38 QT: 342 QTc: 392 Interpretive Statements 1100 Sinus rhythm 3113 Cannot rule out anterior myocardial infarction, probably old 9150 abnormal ECG Compared to ECG 08/28/2025 11:24:19 Myocardial infarct finding now present Electronically Signed On 10-11-2025 14:21:41 EST by FOREIGN GARZON M.D.
--- NOTE | 2025-10-11 13:24 | CT_ITS ---
The [address] [address] Patient Name: NANNETTE PÉREZ MRN: [facility]:[id number] date: 1955 Sex: F Assigned Patient Location: ER Current Patient Location: ER Accession/Order Number: [id number] Exam Date: 10/11/2025 13:35 Report Date: 10/11/2025 14:10 At the request of: JAYASHREE NAVARRO Procedure: CT head/brain wo con CT BRAIN WITHOUT CONTRAST: CLINICAL HISTORY: Fall 2 weeks ago; sent by pcp for imaging COMPARISON: None TECHNIQUE: Contiguous axial unenhanced images were obtained through the brain. This CT exam was performed using one or more following dose reduction techniques: Automated exposure control, adjustment of the mA and/or kV according to patient size, or use of iterative reconstruction technique. FINDINGS: There is mild atrophy. The ventricles are normal in size and position. Minor microvascular changes are noted. There are no additional areas of abnormal attenuation. There is no hemorrhage, mass effect or extra-axial collections. Mild mucosal thickening and a small amount of fluid are seen within the left maxillary sinus. The remaining imaged paranasal sinuses and mastoid air cells are clear. There is mild carotid siphon plaque. The calvarium is intact. CT/CT head/brain wo con IMPRESSION: ATROPHY AND MINOR MICROVASCULAR DISEASE. LEFT MAXILLARY SINUSITIS. NO ACUTE INTRACRANIAL TRAUMA. Impression dictated by: Tracey Bah M.D. 10/11/2025 2:10 PM Dictation Location: [place] [address] Electronically authenticated by: [id number] Y Date: 10/11/2025 14:10
--- NOTE | 2025-10-11 13:25 | ED.GENADUL1 ---
HPI HPI - General Adult General Chief complaint: Fall Stated complaint: FALL 2 WEEKS AGO HEAD INJURY Time Seen by Provider: 10/11/25 13:18 Source: patient Mode of arrival: walk-in History of Present Illness HPI narrative: 70 year old female presents to the ED for evaluation s/p head injury 2 weeks ago. States she slipped and fell. She hit her head. Denies LOC. She called her pcp today and was advised to come to the ED for evaluation and CT scan. She had dizziness after the fall. Also reports intermittent palpitations. Her pcp is going to be ordered a monitor study. Denies fever, chills, vision changes, CP, SOB, N/V She has multiple myeloma. Related Data Home Medications ?Medication ?Instructions ?Recorded ?Confirmed albuterol sulfate 2.5 mg/3 mL 2.5 mg inhalation Q6H PRN 08/27/25 10/11/25 (0.083 %) solution for nebulization shortness of breath or wheezing budesonide 160 mcg-glycopyr 9 2 inh inhalation BID 08/27/25 10/11/25 mcg-formot 4.8 mcg/actuation HFA inhaler (Attention PointzRaidarrr) fluticasone propionate 50 1 spray intranasal DAILY 08/27/25 10/11/25 mcg/actuation nasal spray,suspension magnesium oxide 400 mg (241.3 mg 400 mg PO DAILY 08/27/25 10/11/25 magnesium) tablet metformin 500 mg tablet,extended 500 mg PO DAILY 08/27/25 10/11/25 release 24 hr morphine 15 mg tablet,extended 15 mg PO Q12H 08/27/25 10/11/25 release omeprazole 40 mg capsule,delayed 40 mg PO DAILY 08/27/25 10/11/25 release ondansetron 8 mg disintegrating 8 mg translingual Q12H PRN nausea 08/27/25 10/11/25 tablet and vomiting oxycodone 10 mg tablet 10 mg PO Q4H PRN pain 08/27/25 10/11/25 potassium chloride 10 mEq 10 meq PO DAILY 08/27/25 10/11/25 capsule,extended release semaglutide 0.25 mg or 0.5 mg (2 0.25 mg subcut .WEEKLY 08/27/25 10/11/25 mg/3 mL) subcutaneous pen injector (Ozempic) spironolactone 50 mg tablet 50 mg PO DAILY 08/27/25 10/11/25 atorvastatin 40 mg tablet 40 mg PO .morning 08/28/25 10/11/25 melatonin 5 mg capsule 5 mg PO DAILY 08/28/25 10/11/25 duloxetine 60 mg capsule,delayed 60 mg PO DAILY 09/25/25 10/11/25 release Previous Rx's ?Medication ?Instructions ?Recorded amlodipine 2.5 mg tablet 2.5 mg PO DAILY #30 tabs 08/30/25 buspirone 10 mg tablet 10 mg PO BID #60 tabs 08/30/25 Allergies Allergy/AdvReac Type Severity Reaction Status Date / Time moxifloxacin (From Avelox) Allergy Severe Unknown Verified 10/11/25 12:56 diclofenac (From Voltaren) Allergy Unknown Unknown Verified 10/11/25 12:56 doxycycline (From Vibramycin) Allergy Unknown Unknown Verified 10/11/25 12:56 nitrofurantoin (From Allergy Unknown Unknown Verified 10/11/25 12:56 Macrobid) Opioid HPI Opioid Management Most Recent Opioid Data: Last Pain Scale 3 08/30/25, 08:03 Last ORT Total Score 0 08/28/25, 13:58 Last ORT Risk Category Low Risk 08/28/25, 13:58 Review of Systems ROS Constitutional Denies: fever, chills or fatigue Eyes Denies: change in vision Cardiovascular Denies: chest pain or lightheadedness Respiratory Denies: shortness of breath Gastrointestinal Denies: nausea or vomiting Neurological Reports: dizziness; Denies: headache, numbness in extremities, weakness in extremities, confusion or slurred speech PFSH PFSH Medical History (Updated 10/11/25 @ 15:15 by Ghada Lazaro) Kidney stones ?N20.0 - Calculus of kidney (ICD-10) Anemia ?D64.9 - Anemia, unspecified (ICD-10) Hyperlipidemia ?E78.5 - Hyperlipidemia, unspecified (ICD-10) Hypertension ?I10 - Essential (primary) hypertension (ICD-10) Diabetes ?E11.9 - Type 2 diabetes mellitus without complications (ICD-10) Depression ?F32.A - Depression, unspecified (ICD-10) Asthma exacerbation in COPD ?J44.1 - Chronic obstructive pulmonary disease with (acute) exacerbation (ICD-10) Gross hematuria ?R31.0 - Gross hematuria (ICD-10) Multiple myeloma ?C90.00 - Multiple myeloma not having achieved remission (ICD-10) Surgical History (Updated 09/22/25 @ 14:23 by Carlotta Brandt, LES) H/O tubal ligation ?Z98.51 - Tubal ligation status (ICD-10) H/O wrist surgery ?Z98.890 - Other specified postprocedural states (ICD-10) H/O elbow surgery ?Z98.890 - Other specified postprocedural states (ICD-10) H/O hernia repair ?Z98.890 - Other specified postprocedural states (ICD-10) ?Z87.19 - Personal history of other diseases of the digestive system (ICD-10) H/O hemorrhoidectomy ?Z98.890 - Other specified postprocedural states (ICD-10) Hx of cholecystectomy ?Z90.49 - Acquired absence of other specified parts of digestive tract (ICD-10) History of carpal tunnel release ?Z98.890 - Other specified postprocedural states (ICD-10) H/O arthroscopic knee surgery ?Z98.890 - Other specified postprocedural states (ICD-10) History of appendectomy ?Z90.49 - Acquired absence of other specified parts of digestive tract (ICD-10) H/O: hysterectomy ?Z90.710 - Acquired absence of both cervix and uterus (ICD-10) Hx of colonoscopy ?Z98.890 - Other specified postprocedural states (ICD-10) Family History (Updated 09/22/25 @ 14:25 by Carlotta Brandt RN) Other Alcoholism Arthritis Congenital heart disease Family history of cancer Family history of hypertension Hyperlipidemia Mitral valve disorder Social History (Updated 09/25/25 @ 09:02 by Carlotta Brandt, RN) Within the past year, how often did you have a drink containing alcohol: never Score interpretation: A score less than 3 is consistent with normal alcohol consumption. Smoking status: Former smoker Non-prescribed substance use: denies use Previous occupational history: retired Highest level of school completed/degree received: GED or equivalent Little interest or pleasure in doing things: not at all Feeling down, depressed, or hopeless: not at all Exam Constitutional Vital Signs, click to edit/add: Last Vital Signs Temp 98.7 F 10/11/25 12:59 Pulse 90 10/11/25 14:44 Resp 15 10/11/25 14:44 BP 103/60 10/11/25 14:44 Pulse Ox 99 10/11/25 14:44 O2 Del Method Room Air 10/11/25 12:59 Common normals: no apparent distress and oriented x3 General appearance: cooperative HENMT Common normals: head/scalp atraumatic and moist oral mucous membranes Eye Common normals: PERRL, EOMs intact bilaterally, conjunctivae normal and no scleral icterus Neck & C-Spine Common normals: supple Chest Chest: symmetrical chest wall rise Respiratory Common normals: normal respiratory effort, no use of accessory muscles and clear to auscultation bilaterally Effort & inspection: able to speak in complete sentences and symmetric chest movement Cardio Common normals: regular rate and regular rhythm Neuro Common normals: oriented x3, CN's II-XII intact bilaterally, moves all extremities and no focal motor deficits Sensorium/orientation: awake and alert Speech: speech normal Course Vital Signs Vital signs: Vital Signs Temperature 98.7 F 10/11/25 12:59 Pulse Rate 108 H 10/11/25 12:59 Respiratory Rate 18 10/11/25 12:59 Blood Pressure 153/70 H 10/11/25 12:59 Pulse Oximetry 98 10/11/25 12:59 Oxygen Delivery Method Room Air 10/11/25 12:59 Temperature 98.7 F 10/11/25 12:59 Pulse Rate 90 10/11/25 14:44 Respiratory Rate 15 10/11/25 14:44 Blood Pressure 103/60 10/11/25 14:44 Pulse Oximetry 99 10/11/25 14:44 Oxygen Delivery Method Room Air 10/11/25 12:59 Medical Decision Making MDM Narrative Medical decision making narrative: EKG showed sinus rhythm. CT head and chest x-ray were negative for acute findings. CBC and BMP were unremarkable when compared to previous. Findings were discussed with the patient and her family member. Follow up with pcp for a recheck, further evaluation and treatment. Return to the ED for worsening symptoms. Medical Records Medical records reviewed: Yes I reviewed the patient's medical records Lab Data Lab results reviewed: Yes I reviewed the patient's lab results Labs: Lab Results 10/11/25 Range/Units 13:55 WBC 1.9 L (4.0-11.0) 10^3/uL RBC 3.40 L (4.20-5.40) 10^6/uL Hgb 11.3 L (12.0-16.0) g/dL Hct 33.6 L (36.0-48.0) % MCV 98.8 (81.0-99.0) fL MCH 33.2 (26.7-34.0) pg MCHC 33.6 (29.9-35.2) g/dL RDW 16.4 H (11.0-15.0) % Plt Count 59 L (150-450) 10^3/uL MPV 11.5 (9.5-13.5) fL Seg Neuts % (Manual) 45.0 (43.0-75.0) Lymphocytes % (Manual) 16.0 L (20.5-60.0) % Atypical Lymphs % (Man) 16.0 % Monocytes % (Manual) 22.0 H (1.7-12.0) % Eosinophils % (Manual) 1.0 (0.9-7.0) % Basophils % (Manual) 0.0 L (0.2-2.0) % Neutrophils # (Manual) 0.85 L (1.4-6.5) 10^3/uL Lymphocytes # (Manual) 0.30 L (1.20-3.80) 10^3/uL Abs Atypical Lymphs Man 0.30 Monocytes # (Manual) 0.41 (0.30-0.80) 10^3/uL Eosinophils # (Manual) 0.01 (0.00-0.70) 10^3/uL Basophils # (Manual) 0.00 (0.00-0.10) 10^3/uL Sodium 138 (136-145) mmol/L Potassium 4.1 (3.5-5.1) mmol/L Chloride 101 (98-107) mmol/L Carbon Dioxide 28.3 (21.0-32.0) mmol/L Anion Gap 12.8 BUN 13.0 (7.0-18.0) mg/dL Creatinine 1.05 H (0.55-1.02) mg/dL Est GFR ( Amer) >60 (>=60 mL/min/1.73m^2) Est GFR (Non-Af Amer) 52 L (>=60 mL/min/1.73m^2) BUN/Creatinine Ratio 12.4 Glucose 105 (74-106) mg/dL Calcium 9.0 (8.5-10.1) mg/dL Magnesium 1.9 (1.8-2.4) mg/dL Imaging Data CT scan - head: Radiologist's impression: ITS Impressions Head CT 10/11/25 13:24 IMPRESSION: ATROPHY AND MINOR MICROVASCULAR DISEASE. LEFT MAXILLARY SINUSITIS. NO ACUTE INTRACRANIAL TRAUMA. Impression dictated by: Tracey Bah M.D. 10/11/2025 2:10 PM Dictation Location: [place] [address] Electronically authenticated by: [id number] Y Date: 10/11/2025 14:10 ECG Data Attestation: ?I have reviewed the pertinent ECG results. (EKG was reviewed by the attending physician. It showed sinus rhythm at a rate of 92. No STEMI.) Interpretation: Measurements Intervals [place] Rate: 92 P: 13 NM: 156 QRS: 1 QRSD: 76 T: 38 QT: 342 QTc: 392 Interpretive Statements 1100 Sinus rhythm 3113 Cannot rule out anterior myocardial infarction, probably old 9150 abnormal ECG No previous ECG available for comparison Discharge Plan Discharge Chief Complaint: Fall Clinical Impression: Head injury, Palpitations Patient Disposition: Home, Self-Care Time of Disposition Decision: 15:15 Condition: Good Mode of Transportation: Private Vehicle Prescriptions / Home Meds: No Action melatonin 5 mg capsule 5 mg PO DAILY Rx Instructions: At night atorvastatin 40 mg tablet 40 mg PO .morning amlodipine 2.5 mg tablet 2.5 mg PO DAILY Qty: 30 1RF buspirone 10 mg tablet 10 mg PO BID Qty: 60 0RF duloxetine 60 mg capsule,delayed release(DR/EC) 60 mg PO DAILY albuterol sulfate 2.5 mg /3 mL (0.083 %) solution for nebulization 2.5 mg inhalation Q6H PRN (Reason: shortness of breath or wheezing) Yulisa Aerosphere 160-9-4.8 mcg/actuation HFA aerosol inhaler 2 inh INHALATION BID fluticasone propionate 50 mcg/actuation spray,suspension 1 spray INTRANASAL DAILY magnesium oxide 400 mg (241.3 mg magnesium) tablet 400 mg PO DAILY metformin 500 mg tablet extended release 24 hr 500 mg PO DAILY morphine 15 mg tablet extended release 15 mg PO Q12H omeprazole 40 mg capsule,delayed release(DR/EC) 40 mg PO DAILY ondansetron 8 mg tablet,disintegrating 8 mg translingual Q12H PRN (Reason: nausea and vomiting) oxycodone 10 mg tablet 10 mg PO Q4H PRN (Reason: pain) potassium chloride 10 mEq capsule, extended release 10 meq PO DAILY Ozempic 0.25 mg or 0.5 mg (2 mg/3 mL) pen injector 0.25 mg SUBCUT .WEEKLY spironolactone 50 mg tablet 50 mg PO DAILY Print Language: Azeri Instructions: Heart Palpitations (ED), Head Injury (ED) Additional Instructions: Return to the ED for worsening symptoms. Referrals: Power Swain DO [Primary Care Provider] - 1 week Discharge Date/Time: 10/11/25 15:36
[2025-10-11 14:15] LABS: Anion Gap 12.8; Blood Urea Nitrogen 13.0 mg/dL (7.0-18.0); Calcium 9.0 mg/dL (8.5-10.1); Carbon Dioxide 28.3 mmol/L (21.0-32.0); Chloride 101 mmol/L (98-107); Estimated GFR (African America >60 (>=60 mL/min/1.73m^2); Estimated GFR (Non-African Ame 52 (>=60 mL/min/1.73m^2); Glucose 105 mg/dL (74-106); Magnesium 1.9 mg/dL (1.8-2.4); Potassium 4.1 mmol/L (3.5-5.1); Sodium 138 mmol/L (136-145)
[2025-10-11 15:00] LABS: Hematocrit 33.6 % (36.0-48.0); Hemoglobin 11.3 g/dL (12.0-16.0); Mean Corpuscular HGB Conc 33.6 g/dL (29.9-35.2); Mean Corpuscular Hemoglobin 33.2 pg (26.7-34.0); Mean Corpuscular Volume 98.8 fL (81.0-99.0); Platelet Count 59 10^3/uL (150-450); Red Blood Count 3.40 10^6/uL (4.20-5.40); White Blood Count 1.9 10^3/uL (4.0-11.0)
[2025-10-11 15:18] LABS: Lymphocytes Absolute Manual 0.30 10^3/uL (1.20-3.80); Lymphocytes Percent Manual 16.0 % (20.5-60.0); Segmented Neut Absolute Manual 0.85 10^3/uL (1.4-6.5); Segmented Neutrophils % Manual 45.0 (43.0-75.0)
[2025-10-11 15:19] LABS: Atypical Lymphocytes % Manual 16.0 %; Atypical Lymphocytes Abs Man 0.30; Basophils Abs Manual 0.00 10^3/uL (0.00-0.10); Basophils Percent Manual 0.0 % (0.2-2.0); Eosinophils Absolute Manual 0.01 10^3/uL (0.00-0.70); Eosinophils Percent Manual 1.0 % (0.9-7.0); Monocytes Absolute Manual 0.41 10^3/uL (0.30-0.80); Monocytes Percent Manual 22.0 % (1.7-12.0)
== END 2025-10-11 15:36 | disposition home or self-care (01) ==
PROVIDERS: Nurse Practitioner Family; Emergency Provider Emergency Medicine; PCP Student in an Organized Health Care Education/Training Program
DX: S09.90XA Unspecified injury of head, initial encounter (principal); W01.0XXA Fall on same level from slipping, tripping and stumbling without subsequent striking against object, initial encounter; C90.00 Multiple myeloma not having achieved remission; R42 Dizziness and giddiness; Z87.891 Personal history of nicotine dependence; R00.2 Palpitations
CPT/HCPCS: 36415; 70450; 80048; 83735; 85007; 85027; 93005; 99284; 99285